=== PATIENT | female | born 1990 | race Caucasian/White ===

== ENCOUNTER 2021-12-28 22:08 | Emergency (ER) | payer BC, SELFPAY ==
[2021-12-28 22:13] VITALS: BP 98/53; PULSE 82; RESP 12; TEMP 36.3; O2SAT 90; BMI 21.9
[2021-12-28] MEDS: CYCLOBENZAPRINE HCL 10 MG TABLET PO (22:47)
[2021-12-28] MEDS: KETOROLAC 15 MG/ML inj IVP (22:47)
--- OUTSIDE RECORDS SUMMARY | 2021-12-28 23:24 | XMS_ITS | Encounter Summary ---
:1990 Author Organization [facility] Address [address] [place] [address] Care Team Providers Name Role Phone Ana Red P.A.-C. Primary Care Provider Reason for Visit Reason Comments Phone Contact Appointment LABS Encounter Details Date Type Department Care Team Description 12/11/2021 Clinical Ramirez Barajas, Phone Contact; Communication Center for [facility] (Jagdeep HERRON) Transplantation and Lilian, Ph.D. Clinical [facility] [address] in [facility] [address] [facility] [phone] Social History Tobacco Use Types Packs/Day Years Used Date Smoking Tobacco: Former Cigarettes 0.3 11 01/31 - 10/20/2021 Smokeless Tobacco: Never Comments: 2-3 cpd since July 27, 2021 Alcohol Use Standard Drinks/Week Comments Not Currently 0 (1 standard drink = 0.6 oz pure Havent had any alcohol in about a alcohol) year or so. Alcohol Habits Answer Date Recorded How often do you have a drink Never 07/17/2021 containing alcohol? How many drinks containing alcohol do Not asked you have on a typical day when you are drinking? How often do you have six or more Not asked drinks on one occasion? Comment: Havent had any alcohol in about a 2021 year or so. Social Isolation Answer Date Recorded In a typical week, how many times do you More than three melony es a week 07/17/2021 talk on the phone with family, friends, or neighbors? How often do you get together with friends Twice a week 07/17/2021 or relatives? How often do you attend anglican or Never 2021 yazidism services? Do you belong to any clubs or No 07/17/2021 organizations such as anglican groups, unions, fraternal or athletic groups, or school groups? How often do you attend meetings of the Patient refused 07/17/2021 clubs or organizations you belong to? Are you now , , , Living with partner 07/17/2021 , never or living with a partner? Physical Activity Answer Date Recorded On average, how many days per week do you engage in 0 days 07/17/2021 moderate to strenuous exercise (like walking fast, running, jogging, dancing, swimming, biking, or other activities that cause a light or heavy sweat)? On average, how many minutes do you engage in exercise Patie nt refused 07/17/2021 at this level? Stress Answer Date Recorded Do you feel stress - tense, restless, nervous, or Only a lit tle 07/17/2021 anxious, or unable to sleep at night because your mind is troubled all the time - these days? Financial Resource Strain Answer Date Recorded How hard is it for you to pay for the very basics like food, Very hard 07/17/2021 housing, medical care, and heating? Intimate Partner Violence Answer Date Recorded Within the last year, have you been afraid of your partner o r No 07/17/2021 ex-partner? Within the last year, have you been humiliated or emotionall y No 07/17/2021 abused in other ways by your partner or ex-partner? Within the last year, have you been kicked, hit, slapped, or No 07/17/2021 otherwise physically hurt by your partner or ex-partner? Within the last year, have you been raped or forced to have any No 07/17/2021 kind of sexual activity by your partner or ex-partner? Food Insecurity Answer Date Recorded Within the past 12 months, you worried that your food would Never true 07/17/2021 run out before you got money to buy more. Within the past 12 months, the food you bought just didn't N ever true 07/17/2021 last and you didn't have money to get more. Transportation Needs Answer Date Recorded In the past 12 months, has lack of transportation kept you f rom Yes 07/17/2021 medical appointments or from getting medications? In the past 12 months, has lack of transportation kept you f rom Yes 07/17/2021 meetings, work, or getting things needed for daily living? Housing Stability Answer Date Recorded In the last 12 months, was there a time when you were not ab le No 07/17/2021 to pay the mortgage or rent on time? In the last 12 months, how many places have you lived? 1 07/17/2021 In the last 12 months, was there a time when you did not hav e a No 07/17/[address] sleep or slept in a senior care (including now)? Education Answer Date Recorded What is the highest level of school Associate degree: ruth barker, 07/16/2021 you have completed or the highest technical, or vocational p [facility] degree you have received? 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 There are two sets of labs and one was from 10/10. We have scheduled the sept ones. Just wondering if you would like some completed FRANCESCA or if it can wait till 01/12? Thank you in advance documented in this encounter Plan of Treatment Upcoming Encounters Date Type Specialty Care Team Description 01/07/2022 Office Visit Community Internal Medicine Ranjit Red P.A.-C. [address] [place] [phone] (Wo rk) 01/12/2022 Appointment Laboratory Medicine Matthew Jerome M.B.B.SSuma, MJules [address] [place] [phone] (Wo rk) 01/12/2022 Appointment Laboratory Medicine Adeline Frazier M.D., Ph.D. [address] [place] [phone] (Wo rk) 01/13/2022 Telemedicine Transplant Joel Tan L.I.C.S.W., M.S. W. [address] [place] [phone] (Wo rk) 01/13/2022 Telemedicine Transplant Matthew Jerome M.B.B.SSuma, M.D. [address] [place] [phone] (Wo rk) 01/13/2022 Telemedicine Transplant Adeline Frazier M.D., Ph.D. [address] [place] [phone] (Wo rk) 01/28/2022 Office Visit Gastroenterology and Matthew Jerome, Hepatology FredySSuma, M.Slick. [address] [place] [phone] (Wo rk) Scheduled Procedures Name Priority Associated Diagnoses Date/Time ESOPHAGOGASTRODUODENOSCOPY Cirrhosis Alc oholic (HCC) Hypertension Portal (HCC) ESOPHAGOGASTRODUODENOSCOPY Cirrhosis Alc oholic (HCC) Ascites Anemia Macrocytic Thrombocytopenia (HC C) Deficiency Coagulation Acquired (HCC) documented as of this encounter Visit Diagnoses Not on filedocumented in this encounter Additional Health Concerns Assessment Noted Time PHQ-9 Depression Total Score: 10 10/06/2021 5:00 PM CD T documented as of this encounter Care Teams Mail List Processor Relationship Specialty Start Date End Date Ana Red P.A.-C. PCP - General Internal Medicine 12/01/[address] [place] [phone] [facility] [place] [facility] 08/25/21 Ervin Schroeder MD Referring Provider Family Medicine 03/24/[address] [place] [phone] documented as of this encounter
--- OUTSIDE RECORDS SUMMARY | 2021-12-28 23:24 | XMS_ITS | Encounter Summary ---
:1990 Author Organization [facility] Address [address] [place] [address] Care Team Providers Name Role Phone Ana Red P.A.-C. Primary Care Provider [phone] Reason for Visit Reason Comments Back Pain Encounter Details Date Type Department Care Team Description 12/19/2021 Nurse Triage Department of [facility] Ben Sun , Back Pain Internal Medicine in [place], [place] [address] [facility] [address] [place], [place] [phone] Social History Tobacco Use Types Packs/Day Years [...] or relatives? How often do you attend yarsani or Never 2021 orthodoxy services? Do you belong to any clubs or No 07/17/2021 organizations such as yarsani groups, unions, fraternal or athletic groups, or [...] place to sleep or slept in a mcfp (including now)? Education Answer Date Recorded What is the highest level of school Associate degree: ruth barker, 07/16/2021 you have completed or the highest technical, or vocational p rolf degree you have received? 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 - 12/19/2021 9:54 PM CDT Chief Complaint / Reason for Call Patient is a 31 y.o. female calling regarding Back Pain. Assessment Concern: Christelle calls in today with complaints of severe lower right sided back spasms that started 5 hours ago. Patient denies any urinary pain or frequency and is requesting medical advice. Present for: 5 hours Home cares tried: lidocaine patches, heat, The recommended disposition is See a health care provider within 4 hours. Reason for Disposition [1] SEVERE back pain (e.g., excruciating, unable to do any normal activities) AND [2] not improved 2 hours after pain medicine Protocols used: Back Xeql-KABVO-GT Care Advice Patient/Caregiver understands and will follow care advice?: Yes, able to teach back SEE HCP (OR PCP TRIAGE) WITHIN 4 HOURS: * IF OFFICE WILL BE OPEN: You need to be seen within the next 3 or 4 hours. Call your doctor (or BILINGUAL EXECUTIVE ASSISTANT/PA) now or as soon as the office opens. * IF OFFICE WILL BE CLOSED AND NO PCP (PRIMARY CARE PROVIDER) SECOND-LEVEL TRIAGE: You need to be seen within the next 3 or 4 hours. A nearby Urgent Care Center (UCC) is often a good source of care. Another choice is to go to the ED. Go sooner if you become worse. * IF OFFICE WILL BE CLOSED AND PCP SECOND-LEVEL TRIAGE REQUIRED: You may need to be seen. Your doctor (or BILINGUAL EXECUTIVE ASSISTANT/PA) will want to talk with you to decide what's best. I'll page the on-call provider now. Ifyou haven't heard from the provider (or me) within 30 minutes, call again. NOTE: If on-call providercan't be reached, send to UCC or ED. NOTE TO TRIAGER: * Use nurse judgment to select the most appropriate source of care. * Consider both the urgency of the patient's symptoms AND what resources may be needed to evaluate and manage the patient. SOURCES OF CARE: * ED: Patients who may need surgery or hospital admission need to be sent to an ED. So do most patients with serious symptoms or complex medical problems. * UCC: Some UCCs can manage patients who are stable and have less serious symptoms (e.g., minor illnesses and injuries). The triager must know the UCC capabilities before sending a patient there. If unsure, call ahead. * OFFICE: If patient sounds stable and not seriously ill, consult PCP (or follow your office policy)to see if patient can be seen NOW in office. PAIN MEDICINES: * For pain relief, you can take either acetaminophen, ibuprofen, or naproxen. * They are ortl-ntr-esfvdls (OTC) pain drugs. You can buy them at the drugstore. * ACETAMINOPHEN - REGULAR STRENGTH TYLENOL: Take 650 mg (two 325 mg pills) by mouth every 4 to 6 hours as needed. Each Regular Strength Tylenol pill has 325 mg of acetaminophen. The most you should take each day is 3,250 mg (10 pills a day). * ACETAMINOPHEN - EXTRA STRENGTH TYLENOL: Take 1,000 mg (two 500 mg pills) every 8 hours as needed. Each Extra Strength Tylenol pill has 500 mg of acetaminophen. The most you should take each day is 3,000 mg (6 pills a day). * IBUPROFEN (E.G., MOTRIN, ADVIL): Take 400 mg (two 200 mg pills) by mouth every 6 hours. The most you should take each day is 1,200 mg (six 200 mg pills), unless your doctor has told you to take more. * NAPROXEN (E.G., ALEVE): Take 220 mg (one 220 mg pill) by mouth every 8 to 12 hours as needed. You may take 440 mg (two 220 mg pills) for your first dose. The most you should take each day is 660 mg (three 220 mg pills a day), unless your doctor has told you to take more. CALL BACK IF: * You become worse CARE ADVICE given per Back Pain (Adult) guideline. documented in this encounter Plan of Treatment Upcoming Encounters Date Type Specialty Care Team Description 01/07/2022 Office Visit Community Internal Medicine Ranjit Red P.A.-C. [address] [place] [phone] ([facility]) 01/12/2022 Appointment Laboratory Medicine Matthew Jerome M.B.BSumaSSuma, M.D. [address] [place] [phone] ([facility]) 01/12/2022 Appointment Laboratory Medicine Adeline Frazier M.D., Ph.D. [address] [place] [phone] ([facility]) 01/13/2022 Telemedicine Transplant Joel Tan L.I.C.SAgnes., M.S. W. [address] [place] [address] [phone] (Wo rk) 01/13/2022 Telemedicine Transplant Matthew Jerome M.B.B.S., M.Slick. [address] [place] [phone] (Wo rk) 01/13/2022 Telemedicine Transplant Adeline Frazier M.D., Ph.D. [address] [place] [phone] (Wo rk) 01/28/2022 Office Visit Gastroenterology and Matthew Jerome, Hepatology Tyrell, Lilian [address] [place] [phone] (Wo rk) Scheduled Procedures Name Priority Associated [...] documented as of this encounter Care Teams Vulcanizer Relationship Specialty Start Date End Date Ana Red P.A.-C. PCP - General Internal Medicine 12/01/[address] [place] [phone] [facility] [place] [facility] 08/25/21 Ervin Schroeder MD Referring Provider Family Medicine 03/24/[address] [place] [address] [phone] documented as of this encounter
--- OUTSIDE RECORDS SUMMARY | 2021-12-28 23:24 | XMS_ITS | Encounter Summary ---
:1990 Author Organization [facility] Address [address] [place] [address] Care Team Providers Name Role Phone Ana Red PSumaASuma-CSuma Primary Care Provider Reason for Visit Reason Comments Disability Parking Certificate Encounter Details Date Type Department Care Team Description 12/11/2021 Clinical Communication Department of [facility] Internal Ana, Edmund feliz Medicine in P.A.-C. [place], 300 [facility] [place] 300 [facility] [address] [place] [phone] (Work) [phone] Social History Tobacco Use Types Packs/Day Years [...] or relatives? How often do you attend faith or Never 2021 amish services? Do you belong to any clubs or No 07/17/2021 organizations such as faith groups, unions, fraSocial Rewards or athletic groups, or school groups? How [...] place to sleep or slept in a detention (including now)? Education Answer Date Recorded What is the highest level of school Associate degree: ruth barker, 07/16/2021 you have completed or the highest technical, or vocational p [facility] degree you have received? 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 - 12/11/2021 9:16 AM CDT Disability Parking Certificate form request received. Please mail to patient after provider has signed. documented in this encounter Plan of Treatment Upcoming Encounters Date Type Specialty Care Team Description 01/07/2022 Office Visit Community Internal Medicine Ranjit Red P.A.-C. [address] [place] [phone] (Wo rk) 01/12/2022 Appointment Laboratory Medicine Matthew Jerome M.B.BSumaSSuma, MJules [address] [place] [phone] (Wo rk) 01/12/2022 Appointment Laboratory Medicine Adeline Frazier M.D., Ph.D. [address] [place] [phone] (Wo rk) 01/13/2022 Telemedicine Transplant Joel Tan L.I.C.S.W., M.S. W. [address] [place] [phone] (Wo rk) 01/13/2022 Telemedicine Transplant Matthew Jerome M.B.BSumaSSuma, MJules [address] [place] [phone] (Wo rk) 01/13/2022 Telemedicine Transplant Adeline Frazier M.D., Ph.D. [address] [place] [phone] (Wo rk) 01/28/2022 Office Visit Gastroenterology and Matthew Jerome, Hepatology JoshuaBSumaB.SSuma, MJules [address] [place] [phone] (Wo rk) Scheduled Procedures Name Priority Associated [...] documented as of this encounter Care Teams Psychologist Counseling Relationship Specialty Start Date End Date Ana Red P.A.-C. PCP - General Internal Medicine 12/01/[address] [place] [phone] [facility] [place] lab 08/25/21 Ervin Schroeder MD Referring Provider Family Medicine 03/24/[address] [place] [phone] documented as of this encounter
--- OUTSIDE RECORDS SUMMARY | 2021-12-28 23:24 | XMS_ITS | Encounter Summary ---
:1990 Author Organization [facility] Address [address] [place] [address] Care Team Providers Name Role Phone Ana Red P.A.-C. Primary Care Provider Encounter Details Date Type Department Care Team Description 12/18/2021 Orders Only Department of Mousa, Matthew Y, Mood Disorde r (HCC) (Primary Dx); Gastroenterology in [place]ua [place]. Anxiety Disorder Unspecified [address] [phone] Social History Tobacco Use Types Packs/Day Years [...] many times do you More than three mleony es a week 07/17/2021 talk on the phone with family, friends, or neighbors? How often do you get together with friends Twice a week 07/17/2021 or relatives? How often do you attend temple or Never 2021 mormonism services? Do you belong to any clubs or No 07/17/2021 organizations such as temple groups, unions, fraternal or athletic groups, or [...] place to sleep or slept in a halfway (including now)? Education Answer Date Recorded What is the highest level of school Associate degree: ruth barker, 07/16/2021 you have completed or the highest technical, or vocational p [facility] degree you have received? 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 300 [facility] [place] [phone] (Gwendolyn rahman) 01/12/2022 Appointment Laboratory Medicine Matthew Jerome M.B.B.S., M.D. [address] [place] [phone] (Gwendolyn rahman) 01/12/2022 Appointment Laboratory Medicine Adeline Frazier M.D., Ph.D. [address] [place] [phone] (Wo rk) 01/13/2022 Telemedicine Transplant Joel Tan L.I.C.S.W., M.S. W. [address] [place] [address] [phone] (Wo rk) 01/13/2022 Telemedicine Transplant Matthew Jerome M.B.B.S., MCee. [address] [place] [phone] (Wo rk) 01/13/2022 Telemedicine Transplant Adeline Frazier M.D., Ph.D. [address] [place] [address] [phone] (Wo rk) 01/28/2022 Office Visit Gastroenterology and Matthew Jerome, Hepatology JoshuaBSumaBGraeme, MJules [address] [place] [phone] (Wo rk) Scheduled Procedures Name Priority Associated Diagnoses Date/Time ESOPHAGOGASTRODUODENOSCOPY Cirrhosis Alc oholic (HCC) Hypertension Portal (HCC) ESOPHAGOGASTRODUODENOSCOPY Cirrhosis Alc oholic (HCC) Ascites Anemia Macrocytic Thrombocytopenia (HC C) Deficiency Coagulation Acquired (HCC) documented as of this encounter Visit Diagnoses Diagnosis Mood Disorder (HCC) - Primary Anxiety Disorder Unspecified documented in this encounter Additional Health Concerns Assessment Noted Time PHQ-9 Depression Total Score: 10 10/06/2021 5:00 PM CD T documented as of this encounter Care Teams Bleacher Sulfite Pulp Relationship Specialty Start Date End Date Ana Red P.A.-C. PCP - General Internal Medicine 12/01/[address] [place] [address] [place] [phone] [facility]- [place] lab 08/25/21 Ervin Schroeder MD Referring Provider Family Medicine 03/24/[address] [place] [address] documented as of this encounter
--- OUTSIDE RECORDS SUMMARY | 2021-12-28 23:24 | XMS_ITS | Encounter Summary ---
:1990 Author Organization [facility] Address [address] [place] [address] Care Team Providers Name Role Phone Ana Red P.A.-C. Primary Care Provider [phone] Encounter Details Date Type Department Care Team Description 12/12/2021 Documentation Ramirez Landon [place], Mi meena [place] for Transplantation and L.Kirit.Katrin.S. Hazel, M.S.W. Clinical Regeneration in [address] [place] [address] [address] [place] [address] [place], [place] [phone] Social History Tobacco Use Types Packs/Day Years [...] or relatives? How often do you attend lutheran or Never 2021 zoroastrian services? Do you belong to any clubs or No 07/17/2021 organizations such as lutheran groups, unions, fraVaunte or athletic groups, or school groups? How [...] place to sleep or slept in a snf (including now)? Education Answer Date Recorded What is the highest level of school Associate degree: ruth barker, 07/16/2021 you have completed or the highest technical, or vocational p [facility] degree you have received? 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 - 12/12/2021 9:11 AM CDT The patient contacted me with information on additional caregiver support to her for the post-transplant recovery period. This would include her boyfriend, Lobito Brunson, and her brother, Ricardo Carias. She has given me permission to call them in order to vet them as caregivers. I have spoken with both of them this morning and their caregiver information is below, along with the patient's mother's information, who was previously vetted as a caregiver. Name: Parris Knight Age: 52 Relationship to patient: mother Can they read: yes Can they write: yes Can they drive: yes Do they have a reliable vehicle: yes Does the caregiver have other responsibilities: Yes, she works full-time. She stated she also has a 14 year old son and will babysit for her grandson 2-4 times per week. Health of the caregiver: good Amount of time able to assist as a caregiver: The patient's mother stated she would be able to assist a total of 2 weeks, with the time being staggered and not consistent. Vetted: Yes, in person - 09/30/2021. Name: Lobito Brunson Age: 32 Relationship to patient: boyfriend Can they read: yes Can they write: yes Can they drive: yes Do they have a reliable vehicle: yes Does the caregiver have other responsibilities: Yes, he works in a metal factory as a industrial spray painter. He stated he has spoken with his boss and is able to take time off work to assist as a caregiver. Health of the caregiver: good Amount of time able to assist as a caregiver: The patient's boyfriend stated he would be available during the full recovery period if needed. Vetted: Yes, via telephone - 12/12/2021 Name: Ricardo Carias Age: 29 Relationship to patient: brother Can they read: yes Can they write: yes Can they drive: yes Do they have a reliable vehicle: yes Does the caregiver have other responsibilities: Yes, he works in construction. He reports ability totake time off from work and stated he has spoken with his boss about this. Health of the caregiver: good Amount of time able to assist as a caregiver: The patient's brother stated he would be available during the full recovery period if needed. Vetted: Yes, via telephone - 12/12/2021 The patient appears to have good caregiver support. I have notified Dr. Jerome that her caregiver plan has been solidified. The patient's PACT score remains 1 until she has completed the recommendations from Transplant Psychiatry. She met with Dr. Radhames Neumann with Transplant Pain Psychiatry on 10/06/2021 who recommended the following: I recommend that she participate in the virtual Complex Persistent Pain Program (CPPP), a 4-hour group-based psychoeducation course that addresses central sensitivity, neuroplasticity, and evidence-based behavioral strategies to enhance functioning. She was seen by Dr. Frazier with Transplant Addictions Psychiatry on 10/10/2021 who made the following recommendations: COMPLETE THE FULL TRANSPLANT CENTER PROTOCOL (OUTPATIENT) includin. Complete abstinence from alcohol, tobacco, cannabis, prescription opiates, Sedatives/ benzodiazepines, and all substances of abuse. 2. Outpatient level dual-diagnosis addiction treatment to develop relapse prevention skills. 3. Engagement in AA meetings (or other approved recovery meetings), at minimum once weekly. 4. Obtain and utilize a recovery sponsor. 5. Follow plan of care for chronic pain management per Radhames Neumann, Ph.D., L.P. in [place] Trans[facility] Psychiatry (Pain Rehabilitation), 10/06/2021: - virtual Complex Persistent Pain Program (CPPP), a 4-hour group-based psychoeducation course that addresses central sensitivity, neuroplasticity, and evidence-based behavioral strategies to enhance functioning; - opioid taper and discontinuation under care of her local prescribing provider. 6. Follow plan of care per Transplant Psychiatry (Mood), pending appointment on 10/22/2021. 7. Urine drug, ethyl glucuronide, and phosphatidyl ethanol screens at each visit with Transplant Addiction Psychiatry. 8. Follow up in 3 months with Transplant Addiction Counselor (LADC).The LADC will determine and order follow up with Transplant Addiction Psychiatrist based on the patient's progress. She met with Dr. Keen with Transplant Mood Psychiatry on 10/22/2021 who indicated the following: She has not discontinue opiate and THC use and I will speak with Dr. Frazier to have her team follow up with the patient about these recommendations. At this point, I believe that this would be thepriority followed by further assessment and treatment of eating disorders. She currently denies restricting or purging behaviors and in the future could be referred to the [facility] for further assessment and treatment. 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 documented in this encounter Plan of Treatment Upcoming Encounters Date Type Specialty Care Team Description 01/07/2022 Office Visit Community Internal Medicine Ranjit Red P.A.-C. [address] [place] [address] [place] [phone] (Wo rk) 01/12/2022 Appointment Laboratory Medicine Matthew Jerome M.B.B.SSuma, MJuels [address] [place] [phone] (Wo rk) 01/12/2022 Appointment Laboratory Medicine Adeline Frazier M.D., Ph.D. [address] [place] [phone] (Wo rk) 01/13/2022 Telemedicine Transplant Joel Tan L.I.C.S.W., M.S. W. [address] [place] [phone] (Wo rk) 01/13/2022 Telemedicine Transplant Matthew Jerome M.B.B.SSuma, M.D. [address] [place] [phone] (Wo rk) 01/13/2022 Telemedicine Transplant Adeline Frazier M.D., Ph.D. [address] [place] [phone] (Wo rk) 01/28/2022 Office Visit Gastroenterology and Matthew Jerome, Hepatology FredySSuma, M.Slick. [address] [place] [phone] (Wo rk) Scheduled Procedures Name Priority Associated [...] documented as of this encounter Care Teams Supervisor Harvesting Relationship Specialty Start Date End Date Ana Red P.A.-C. PCP - General Internal Medicine 12/01/[address] [place] [phone] [facility] 08/25/21 Ervin Schroeder MD Referring Provider Family Medicine 03/24/[address] [place] [phone] documented as of this encounter
--- OUTSIDE RECORDS SUMMARY | 2021-12-28 23:24 | XMS_ITS | Clinical Summary ---
:1990 Author Organization [facility] Address [address] [place] [address] Care Team Providers Name Role Phone Ana Red P.A.-C. Primary Care Provider [phone] Source Comments Patient records contain information from all sites at [facility]. For routine questions regarding patient records, call [phone] during business hours, M-F 8:00 AM - 5:00 PM Central Time. Record requests for emergency care only can be directed to [phone] at any time.[facility] Allergies Active Allergy Reactions Severity Noted Date Comments Azithromycin GI intolerance, Nausea Low 05/07/2016 And Vomiting Other reaction( s): Nausea/Vomiting Other reaction( s): Other (see comments) Unknown Other reaction( s): Unknown Other reaction( s): GI intolerance Ciprofloxacin Other (see comments) High 11/26/2021 Enceph alopathy Gabapentin Other (see comments) High 11/26/2021 Encepha lopathy Medications Medication Sig Dispensed Refills Start End Status Date Date pantoprazole Take 1 tablet 30 tablet 1 03/24/20 Act gerri (PROTONIX) 40 mg EC (40 mg total) by 21 tablet mouth every morning before breakfast. ondansetron ODT Take 1 tablet by 0 04/23/20 Active (ZOFRAN-ODT) 8 mg mouth 3 (three) 21 disintegrating times a day as tablet needed. ergocalciferol Take 50,000 0 04/01/20 Act gerri (DRISDOL) 50,000 Units by mouth 21 Unit capsule once a week. levonorgestreL 1 each by 0 Activ e (MIRENA) 20 mcg/24 intrauterine hours (7 yrs) 52 mg route IUD continuously. folic acid 1 mg Take 1 mg by 0 A ctive tablet mouth daily. thiamine (VITAMIN Take 100 mg by 0 Active B1) 100 mg tablet mouth daily. vitamin A 3,000 mcg Take 1 capsule 50 capsule 0 10/09/1905/04 Active (10,000 Unit) (3,000 mcg 22 022 capsuleIndications: total) by mouth Cirrhosis Alcoholic 3 (three) times (HCC), Deficiency a week for 50 Vitamin A doses. diclofenac sodium Apply 2 g 20 g 0 11/27/19 Ac tive (VOLTAREN) 1 % gel topically 4 22 (four) times a day. Apply to painful area on skin. magnesium oxide Take 1 tablet 60 tablet 1 12/03/19 Active (MAG-OX) 400 mg (400 mg total) 22 (241.3 mg magnesium) by mouth 2 (two) tablet times a day before breakfast and dinner. zinc sulfate Take 1 capsule 28 capsule 0 12/03/19 A ctive (ZINCATE) 220 (50 mg (220 mg total) 22 022 zinc) capsule by mouth daily with breakfast for 28 days. traZODone (DESYREL) Take 1 tablet 10 tablet 0 12/05/19 Active 50 mg tablet (50 mg total) by 22 mouth at bedtime as needed for sleep for up to 10 doses. rifAXIMin (XIFAXAN) Take 1 tablet 180 tablet 3 12/11/1912/10 Active 550 mg (550 mg total) 22 023 tabletIndications: by mouth 2 (two) Cirrhosis Alcoholic times a day. (HCC), Hypertension Portal (HCC), Thrombocytopenia (HCC), Abnormal Liver Function Test, Hepatic Encephalopathy Without Coma (HCC) spironolactone Take 2 tablets 180 tablet 3 12/11/19 Active (ALDACTONE) 50 mg (100 mg total) 22 023 tabletIndications: by mouth daily. Cirrhosis Alcoholic (HCC), Hypertension Portal (HCC), Thrombocytopenia (HCC), Abnormal Liver Function Test, Ascites Chronic furosemide (LASIX) Take 2 tablets 180 tablet 3 12/11/1912/10 Active 20 mg (40 mg total) by 22 023 tabletIndications: mouth daily. Cirrhosis Alcoholic (HCC), Hypertension Portal (HCC), Thrombocytopenia (HCC), Abnormal Liver Function Test, Ascites Chronic lactulose Take 15 mL (10 g 1350 mL 11 12/11/19 Act gerri (CHRONULAC) 10 total) by mouth 22 023 gram/15 mL 3 (three) times solutionIndications: a day. Titrate Cirrhosis Alcoholic to 3 soft bowel (HCC), Hypertension movements daily Portal (HCC), Thrombocytopenia (HCC), Abnormal Liver Function Test, Hepatic Encephalopathy Without Coma (HCC) sulfamethoxazole-tri Take 1 tablet by 90 tablet 3 12/11/19 Active methoprim (BACTRIM mouth daily. 023 DS) 800-160 mg per Take 1 tablet tabletIndications: daily for Cirrhosis Alcoholic (HCC), Hypertension Portal (HCC), Thrombocytopenia (HCC), Abnormal Liver Function Test, Ascites Chronic LORazepam (ATIVAN) 1 Take 1 tablet (1 1 tablet 0 12/19/19 Active mg mg total) by 22 tabletIndications: mouth once for 1 Mood Disorder (HCC), dose. Take 30 Anxiety Disorder minutes before Unspecified your scheduled paracentesis magnesium oxide Take 1 tablet 60 tablet 1 03/24/20 Discontinued (MAG-OX) 400 mg (400 mg total) 022 (Reorder) (241.3 mg magnesium) by mouth 2 (two) tablet times a day before breakfast and dinner. furosemide (LASIX) Take 2 tablets 30 tablet 1 08/04/19 Discontinued 20 mg tablet (40 mg total) by 022 (Reorder) mouth daily. spironolactone Take 2 tablets 30 tablet 1 08/04/19 Discontinued (ALDACTONE) 50 mg (100 mg total) 022 (Reorder) tablet by mouth daily. lactulose Take 15 mL (10 g 0 11/12/19 Dis continued (CHRONULAC) 10 total) by mouth 22 022 (Reorder) gram/15 mL solution 3 (three) times a day. Titrate to 3 soft bowel movements daily zinc sulfate Take 1 capsule 28 capsule 0 11/12/19 D iscontinued (ZINCATE) 220 (50 mg (220 mg total) 22 022 (Reorder) zinc) capsule by mouth daily with breakfast for 28 days. rifAXIMin (XIFAXAN) Take 550 mg by 0 12/10 Discontinued 550 mg tablet mouth 2 (two) 022 (R eorder) times a day. lidocaine (LIDODERM) Place 1 patch on 14 patch 0 11/27/19 5 % the skin at 22 022 bedtime for 14 days. Apply to leg. sulfamethoxazole-tri Take 1 tablet by 30 tablet 0 11/27/19 Discontinued methoprim (BACTRIM mouth daily. 22 022 (Reorder) DS) 800-160 mg per Take 1 tablet tablet daily for traZODone (DESYREL) Take 1 tablet 10 tablet 0 12/05/19 Discontinued 50 mg tablet (50 mg total) by 22 022 (Reorder) mouth at bedtime as needed for sleep for up to 10 doses. traZODone (DESYREL) Take 1 tablet 10 tablet 0 12/05/19 Discontinued 50 mg tablet (50 mg total) by 22 022 (Reorder) mouth at bedtime as needed for sleep for up to 10 doses. Active Problems Problem Noted Date COVID-19 Infection 11/11/2021 Penitentiary Use Of Opiate Analgesic 10/10/2021 Nicotine Dependence Cigarettes 10/10/2021 Chronic Pain Syndrome 10/10/2021 Mood Disorder 10/10/2021 Eating Disorder 10/10/2021 Deficiency Vitamin A 10/08/2021 Hypertension Portal 09/05/2021 Overview: Added automatically from request for dolly daley [id number] Pretransplant Recipient Evaluation Exam 09/05/2021 Overview: Added automatically from request for dolly daley [id number] Vomiting 07/26/2021 Deficiency Coagulation Acquired 07/07/2021 Overview: Added automatically from request for dolly daley [id number] Thrombocytopenia 07/01/2021 Patent Foramen Ovale 03/19/2021 Cirrhosis Alcoholic 03/12/2021 Acute Respiratory Failure 03/12/2021 Anemia 03/12/2021 Long QT Syndrome 01/30/2021 Hepatic Failure Unspecified Without Coma 01/24/2021 Abnormal Liver Function Test 01/23/2021 Ascites 01/23/2021 Pancreatitis Chronic 01/23/2021 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/30 Gastroesophageal Reflux Disease Without Esophagitis Anxiety Disorder Unspecified 01/19/2012 Other Specified Behavioral And Emotional Disorders Wit h Onset Usually 06/30/2007 Occurring In Childhood And Adolescence Rhinitis Allergic 04/06/2006 Alcohol Use Unspecified With Unspecified Alcohol Induc ed Disorder Resolved Problems Problem Noted Date Resolved Date Delirium 11/26/2021 11/26/2021 Encephalopathy 11/12/2021 11/26/2021 Failure Renal Acute (Acute Kidney Injury) 11/11/2021 11/11/2021 Hepatic Encephalopathy Without Coma 10/10/2021 07/2 10/2021 Change Mental Status 03/12/2021 11/26/2021 Encounters Date Type Specialty Care Team Description 12/27/2021 Patient Self-Triage Symptom Charge Weigher, Provider 12/25/2021 Clinical Community Internal [facility], Communication Medicine Vernell Perez 12/21/2021 Emergency Emergency Medicine Gonzalez, Ascites ( Primary Dx) Ted Johnson M.D., Ph.D. Clifton Liu M.D. 12/19/2021 Emergency Emergency Medicine Gonzalez, Pain Back (Primary - Ted Johnson M.D., Dx) 12/20/2021 Ph.D. Migue Garcia Jr., M.D. 12/19/2021 Nurse Triage Community Internal [facility], Back Pain Medicine Ben Johnson R.N. 12/18/2021 Orders Only Gastroenterology and Mousa, Matthew Y, Mood Disorder (HCC) (Primary Dx); Hepatology Lilian Santillan Anxiety Disor ijeoma Unspecified 12/15/2021 Lab Laboratory Medicine Loukianova, Alcohol Moderate Or Severe Use Disorder (Dependence) Uncomplicated (HCC); Adeline Gannon, Cannabis Use Un specified Uncomplicated M.Jeri, Ph.D. 12/12/2021 Documentation Transplant Lambert, Joel Gannon, Jagdeep.I.C.S.W., M.S.W. 12/11/2021 Clinical Transplant Fabrizio, Phone Contact; Communication Lilian Rowland, Appointment (LABS) Ph.D. 12/11/2021 Clinical Gastroenterology and Felicita Spicer Communication Hepatology Patrica, LSumaPSumaN. 12/11/2021 Clinical [facility] Internal Neda Disabilit y Parking Communication Medicine Ana, Ashleigh P.A.-C. 12/10/2021 Office Visit Gastroenterology and Matthew Jerome, Cirrh osis Alcoholic (HCC) (Primary Dx); Hepatology JoshuaBLilian Staples Hypertension Portal (HCC); Thrombocytopeni a (HCC); Abnormal Liver Function Test; Deficiency Katy min A; Ascites Chronic ; Hepatic Encepha lopathy Without Coma (HCC) 12/04/2021 [facility] ( Primary Dx); Neeru Palma M.D. 12/04/2021 Clinical Gastroenterology and Jethro Communication Hepatdina Schaefer M.D. 12/04/2021 Clinical Gastroenterology and Jethro Communication Hepatdina Schaefer M.D. 12/04/2021 Clinical Gastroenterology and Ashley Morelos M.D. 12/04/2021 Documentation Gastroenterology and Elaine Morelos M.D. 12/04/2021 Clinical Gastroenterology and Ashley Morelos Hepatdina Schaefer M.D. 12/03/2021 Clinical [facility] Internal Sykora, BIANKA / Disha eal Letter Communication Medicine Lilian Gee, M.S. 12/03/2021 Orders Only Ana Red, P.A.-C. 12/02/2021 Hospital Encounter Laboratory Medicine Luischantell Matthew Y, Cirrhosis Alcoholic (HCC); M.B.B.Lilian Stockton Hypertension Portal (HCC); Thrombocytopeni a (HCC); Abnormal Liver Function Test; Change Mental S tatus 12/02/2021 Office Visit [facility] Acute A nd Subacute Hepatic Failure Without Coma (HCC) (Primary Dx); Medicine Sunny hanley D.O. Pancreatitis Chronic (HCC); Fish Header Use O f Opiate Analgesic; Alcohol Use Uns pecified With Unspecified Alcohol Induced Disorder (HCC); Alcoholic Cirrh osis Of Liver Without Ascites (HCC); Ascites Chronic ; Insomnia; High Risk Medic ation 12/02/2021 [facility] Internal Sina, Communication Medicine Lilian Gee, M.S. 12/02/2021 Clinical Pharmacy Be, Communication Jasmyne R 12/02/2021 [facility] Internal [facility] Communication Medicine Sunny hanley D.O. 12/02/2021 Orders Only Ana Red P.A.-C. 12/02/2021 [facility] Internal [place], Post Hosp ital Communication Medicine Ciara Johnson RSumaNSuma Follow-up 11/27/2021 Orders Only [facility] Internal [facility], Solitario Gee M.D., M.S. 11/26/2021 Clinical [facility] Internal Shannan Rand Communication Medicine Lilian 11/26/2021 Clinical Gastroenterology and Matthew Jerome Communication Hepatology M.B.B.S., M.D. 11/26/2021 [facility] Orders Schroeder, Steatohepat itis Non Alcoholic (Primary Dx); Ervin Schaefer M.D. Unspecified Ci rrhosis Of Liver (HCC) 11/18/2021 Clinical Alina Carranza Communication R, R.N. 11/14/2021 [facility] Orders Schroeder, Abuse Tobac co Smoking (Primary Dx); Ervin Schaefer M.D. Unspecified Ci rrhosis Of Liver (HCC) 11/12/2021 Hospital Encounter [place], Rosaura Hernandez loady (Primary Dx); Ester Johnson M.D., Change Mental S tatus; 11/26/2021 M.P.[facility]. Malaise (Concern For Covid-19); Greyson, Cirrhosis Alcoh olic (HCC) Jo Ann Gannon M.D., M.S. Jody Aguilar, M.B., B.Chir. 11/12/2021 Clinical Gastroenterology and Mousa, Matthew Y, Covid Positive Communication Hepatology Lilian Santillan 11/10/2021 Episode Changes Transplant Ailts, Chano Engle, R.N., C.C.T.C. 11/09/2021 Hospital Encounter Greyson, Hepatic - Jo Ann L, Encephalopathy 11/11/2021 MJules, M.SSuma Without Coma (HCC) Jody Aguilar (Primary Dx) Vik Lucas B.Chir. 11/04/2021 Clinical Gastroenterology and Symone Beebe Communication Hepatology L, R.N. 10/31/2021 Clinical Dillon Alina Vitamin K Communication R, R.N. 10/31/2021 Orders Only Gastroenterology and Mousa, Matthew Y, Cirrh osis Alcoholic (HCC) (Primary Dx); Hepatology Lilian Santillan Defect Coagul ation (HCC) 10/29/2021 Orders Only Social Work Joel Tan, WoodrowC.S.WSuma, M.S.W. 10/28/2021 Clinical Transplant Transplant, External Lab En try Bindery Assistant, (10/25/2021/) R.N. 10/27/2021 Telemedicine Nicotine Dependence Galo Crain ne Dependence Jessy Gannon, Cigarettes (Monica correa M.A., C.T.T.S. Dx) 10/22/2021 Telemedicine Transplant Edgar, Moderate Or Sev ere Use Disorder (Dependence) Alcohol Remission (HCC) (Primary Dx); Warren Schaefer, Bulimia Nervosa (HCC); MJules, M.P.H. Anorexia Nervosa Restricting Type (HCC); Natalia Anxiety Gener alized Disorder; e, Brigid G, Cirrhosis Alcoh olic (HCC); M.D. Ascites; Abnormal Liver Function Test; Pretransplant R ecipient Evaluation Exam; Preoperative Ex am 10/20/2021 Clinical Transplant Dominick, Follow up on Communication Joel Gannon, caregiver plan MarvaISumaC.S.W., M.S.W. 10/17/2021 Nurse Triage Family Medicine PosKin tanner, RSumaN. 10/17/2021 Clinical Transplant Dominick, Follow up on Communication Joel Gannon, caregiver plan Michelle., M.S.W. 10/15/2021 Documentation Gastroenterology and Mousa, Matthew Y, Hepatology Lilian Santillan 10/13/2021 Nurse Triage Family Medicine Dasonyaeddie, Medication Q uestion Jolynn L, R.N. 10/13/2021 Nurse Triage Family Medicine Nola Polanco M, R.N. 10/10/2021 Telemedicine Transplant Talnatalia, Alcohol Moderat e Or Severe Use Disorder (Dependence) Uncomplicated (HCC) (Primary Dx); Warren A, Cannabis Use Un specified Uncomplicated; M.Jeri, M.P.H. Penitentiary Use Of Opiate Analgesic; Zenobia Hollingsworth Nicotine Depen dence Cigarettes; L, M.A., Mood Disorder ( HCC); L.A.D.C. Anxiety Disorde r Unspecified; Eating Disorder ; Hepatic Encepha lopathy Without Coma (HCC); Chronic Pain Sy ndrome; Cirrhosis Alcoh olic (HCC); Pretransplant R ecipient Evaluation Exam 10/10/2021 Clinical Transplant Fabrizio, Appointment (TF C FA) Communication Lilian Rowland, Ph.D. 10/09/2021 Hospital Encounter Radiology Edgar, Cirrhosis Alcoholic (HCC); Warren A, Abnormal Liver Function Test; M.Jeri, M.P.H. Ascites; Pretransplant R ecipient Evaluation Exam; Preoperative Ex am 10/09/2021 Clinical Transplant Brigid Lima M.D. 10/08/2021 Office Visit Gastroenterology and Matthew Jerome Y, Cirrh osis Alcoholic (HCC) (Primary Dx); Hepatology Tyrell, Lilian Hypertension Portal (HCC); Thrombocytopeni a (HCC); Abnormal Liver Function Test; Deficiency Katy min A 10/08/2021 Clinical Gastroenterology and Oriana, Communication Hepatology Sofia Gannon, L.P.N. 10/07/2021 Hospital Encounter Pulmonary Medicine Edgar, Cir rhosis Alcoholic (HCC); Warren A, Abnormal Liver Function Test; Lilian, M.P.H. Ascites; Pretransplant R ecipient Evaluation Exam; Preoperative Ex am 10/06/2021 Comprehensive Visit Transplant Edgar, Pain Leg Bilateral (Primary Dx); Warren Schaefer, Cirrhosis Alcoh olic (HCC); Lilian, M.P.H. Abnormal Liver Function Test; Neumann, Ascites; Radhames Llanes, Pretransplant R ecipient Evaluation Exam; Ph.D., L.P. Preoperative Ex am 10/03/2021 Hospital Encounter Laboratory Medicine Edgar, Ci rrhosis Alcoholic (HCC); Warren Schaefer, Abnormal Liver Function Test; Lilian, M.P.H. Ascites; Pretransplant R ecipient Evaluation Exam; Preoperative Ex am 10/03/2021 Office Visit Transplant Clavell, Patent Foramen Ovale (HCC) (Primary Dx); Saul Gannon, Hypertension Po rtal (HCC); M.Slick. Cirrhosis Alcoholic (HCC); Geraldo, Pretransplant R ecipient Evaluation Exam Abelino Llanes M.D. 10/02/2021 Comprehensive Visit Transplant Vish, Cirrhosi s Alcoholic (HCC); Migue Llanes, Abnormal Liver Function Test; M.D. Ascites; Pretransplant R ecipient Evaluation Exam; Preoperative Ex am 10/02/2021 Comprehensive Visit Transplant Fabrizio, Cirrhosi s Alcoholic (HCC); Lilian Rowland, Abnormal Live r Function Test; Ph.D. Ascites; Pretransplant R ecipient Evaluation Exam; Preoperative Ex am 10/02/2021 Orders Only Transplant Bernardo Diggs Clinical Rese arch Exam (Primary D x) 10/01/2021 Comprehensive Visit Preventive Medicine Felicita Diggs Preventive (Primary Dx); K, POLE INSPECTOR, Cirrhosis Alcoh olic (HCC); C.N.P. Abnormal Liver Function Test; Ascites; Pretransplant R ecipient Evaluation Exam; Preoperative Ex am 10/01/2021 Clinical Support Nicotine Dependence Eddie Hernández Dependence Cigarettes (Primary Dx); Warren Schaefer, Cirrhosis Alcoh olic (HCC); Lilian, M.P.H. Abnormal Liver Function Test; Paras, Ascites; Jessy L, Pretransplant R ecipient Evaluation Exam; Lowell SolerT.T.SSuma Preoperative Exam 10/01/2021 Education Transplant Edgar, Cirrhosis Alcoh olic (HCC); Warren A, Abnormal Liver Function Test; M.D., M.P.H. Ascites; Laney French Pretransplant Recipient Evaluation Exam; Chano Johnson, Preoperative Ex am R.N., C.C.T.C. 10/01/2021 Orders Only Transplant Bernardo Diggs R 10/01/2021 Clinical Nicotine Dependence Paras, [facility] D REQUEST Communication Jessy Gannon M.A., C.T.T.S. 09/30/2021 Comprehensive Visit Transplant Edgar, Cirrhosi s Alcoholic (HCC); Warren A, Abnormal Liver Function Test; M.D., M.P.H. Ascites; Ramon, Pretransplant R ecipient Evaluation Exam; Milagros Schaefer, Preoperative Ex am M.Kath, RDN, LD 09/30/2021 Clinical Support Transplant Edgar, Cirrhosis A lcoholic (HCC); Warren A, Abnormal Liver Function Test; M.D., M.P.H. Ascites; Dominick, Pretransplant R ecipient Evaluation Exam; Joel Gannon, Preoperative Ex am L.I.C.S.W., M.S.W. 09/30/2021 Office Visit Pharmacy Edgar, Cirrhosis Alcoh olic (HCC); Warren A, Abnormal Liver Function Test; M.D., M.P.H. Ascites; Evon Joseph Pretransplant R ecipient Evaluation Exam; Karan, Pharm.D., Preoperative Ex am R.Ph. 09/30/2021 Lab Laboratory Medicine Edgar, Cirrhosi s Alcoholic (HCC); Warren A, Abnormal Liver Function Test; M.D., M.P.H. Ascites; Pretransplant R ecipient Evaluation Exam; Preoperative Ex am 09/28/2021 Nurse Triage Family Medicine Ines Walters Leg Pain R, R.N. from Last 3 Months Immunizations Name Administration Dates Next Due DTP 03/14/1992, 02/23/1991, 1990, 1990 DTaP (Infanrix, Tripedia) 05/26/1995 HepB Pediatric/Adolescent 12/28/2000, 12/17/1997, 04/30/1997 Hib (PRP-OMP) (PedvaxHIB) 02/08/1992, 06/01/1991, 03/08/1991 Hib, Unspecified 02/08/1992, 06/01/1991, 03/08/1991 Influenza TIV (IM) 02/26/2009, 03/26/2008, 03/21/2007, 03/21/2003, 03/03/2003 Influenza, Seasonal, Injectable 02/26/2009, 03/26/2008, 03/03, 03/21/2003 MMR 12/17/1997, 11/09/1991 OPV 05/26/1995, 03/14/1992, 02/23/1991, 1990, 1990 Polio, Unspecified 05/26/1995, 03/14/1992, 1990, 1990 Td (Adult), adsorbed 09/08/2002 Tdap 03/07/2014 influenza vaccine quad 03/07/2014 (FLUZONE/FLUARIX) (6 months and older)(PF) Family History Medical History Relation Name Comments ADD Brother 1 Curt Depression Brother 1 Curt Seizures Brother 1 Curt Suicide Attempts Brother 1 Curt ADD Brother 2 Ricardo Hyperlipidemia Father Roscoe Carias Arthritis Maternal Grandfather Bradley Mayon Asthma Maternal Grandfather Bradley Cespedes Hypertension Maternal Grandfather Bradley Coy Arthritis Maternal Grandmother Desirejoe Cespedes Asthma Maternal Grandmother Desirejoe Cespedes Migraines Maternal Grandmother Desire Cespedes Anxiety disorder Mother Parris Diabetes Paternal Grandfather Laureanorigo Carias Prostate cancer Paternal Grandfather Laureano Carias ADD Sister Christina Relation Name Status Comments Brother 1 Curt Brother 2 Ricardo Father Roscoe Carias Maternal Grandfather Bradley Cespedes Maternal Grandmother Desire Cespedes Mother Parris Paternal Grandfather Laureano Carias Sister Christina Social History Tobacco Use Types Packs/Day Years Used Date Smoking Tobacco: Former Cigarettes 0.3 11 01/31 - 10/20/2021 Passive Smoke Exposure: Never Smokeless Tobacco: Never Tobacco Cessation: Counseling Given: Not Answered Comments: 2-3 cpd since July 27, 2021 [...] or relatives? How often do you attend yazidism or Never 2021 nondenominational services? Do you belong to any clubs or No 07/17/2021 organizations such as yazidism groups, unions, fraternal or athletic groups, or [...] place to sleep or slept in a custodial (including now)? Education Answer Date Recorded What is the highest level of school Associate degree: ruth barker, 07/16/2021 you have completed or the highest technical, or vocational p jonnyram degree you have received? Sex Assigned at Date Recorded Female 04/12/2021 7:39 PM [employer] Last Filed Vital Signs Vital Sign Reading Time Taken Comments Blood Pressure 117/60 12/21/2021 8:55 AM CDT Pulse 93 12/21/2021 8:55 AM CDT Temperature 37 ??C (98.6 ??F) 12/21/2021 8:55 AM CDT Respiratory Rate 18 12/21/2021 8:55 AM CDT Oxygen Saturation 98% 12/21/2021 8:45 AM CDT Inhaled Oxygen Concentration - - Weight 57.4 kg (126 lb 8.7 oz) 12/21/2021 1:13 AM CDT Height 159 cm (5' 2.6) 12/10/2021 2:51 PM CDT Body Mass Index 22.71 12/10/2021 2:51 PM CDT Plan of Treatment Upcoming Encounters Date Type Specialty Care Team Description 01/07/2022 Office Visit Community Internal Medicine Ranjit Red P.A.-C. [address] [place] [address] [phone] (Wo rk) 01/12/2022 Appointment Laboratory Medicine Matthew Jerome M.B.B.SSuma, M.D. [address] [place] [phone] (Wo rk) 01/12/2022 Appointment Laboratory Medicine Adeline Frazier M.D., Ph.D. [address] [place] [phone] (Wo rk) 01/13/2022 Telemedicine Transplant Joel Tan L.I.C.SSumaW., M.S. W. [address] [place] [address] [phone] (Wo rk) 01/13/2022 Telemedicine Transplant Matthew Jerome M.B.B.SSuma, M.D. [address] [place] [phone] (Wo rk) 01/13/2022 Telemedicine Transplant Adeilne Frazier M.D., Ph.D. [address] [place] [phone] (Wo rk) 01/28/2022 Office Visit Gastroenterology and Matthew Jerome, Hepatology FredySSumaLilian [address] [place] [address] [phone] (Wo rk) Scheduled Procedures Name Priority Associated Diagnoses Date/Time ESOPHAGOGASTRODUODENOSCOPY Cirrhosis Alc oholic (HCC) Hypertension Portal (HCC) ESOPHAGOGASTRODUODENOSCOPY Cirrhosis Alc oholic (HCC) Ascites Anemia Macrocytic Thrombocytopenia (HC C) Deficiency Coagulation Acquired (HCC) Health Maintenance Due Date Last Done Comments Hepatitis A Vaccines (1 of 2 - 07/10/1991 Risk 2-dose series) Pneumococcal vaccine (0-64 years) 1996 (1 - PCV) Cervical Cancer Screening 02/28/2017 02/28/2014 COVID-19 Vaccine (3 - Booster for 09/13/2021 04/15/2021, Pfizer series) Influenza Vaccine (#1) 2022 03/07/2014, 02/26/2009, 02/26/2009, Additional history exists Abdominal Ultrasound 05/28/2022 11/25/2021, 11/09/2021, 07/26/2021, Additional history exists Creatinine Level 12/20/2022 12/20/2021, 12/04/2021, 12/02/2021, Additional history exists Potassium Level 12/20/2022 12/20/2021, 12/04/2021, 12/02/2021, Additional history exists Sodium Level 12/20/2022 12/20/2021, 12/04/2021, 12/02/2021, Additional history exists DTaP,Tdap,and Td Vaccines (7 - Td 03/07/2024 03/07/2014, , or Tdap) 05/26/1995, Additional history exists Hepatitis B Vaccines Completed 12/28/2000, 12/17/1997, 04/30/1997 HIV Screening Completed 09/30/2021 Depression Screening (Annual Completed 12/02/2021 PHQ-2) Medical Devices Implanted Type Area Copy Center Specialist Device Shelf Model / Identifier Expiration Serial / Date Lot Intrauterine Intrauterine N/A: Device Device Cervix Procedures Procedure Name Priority Date/Time Associated Comments Diagnosis PARACENTESIS Routine 12/21/2021 Results for 2:48 PM CDT this procedure are in the results section. HC URINALYSIS AUTO WO Routine 12/20/2021 Result s for MICRO 4:20 AM CDT this procedure are in the results section. DIPSTICK, U STAT 12/20/2021 Results for 4:17 AM CDT this procedure are in the results section. PH, RANDOM, U STAT 12/20/2021 Results for 4:17 AM CDT this procedure are in the results section. HC OSMOLALITY ASSAY STAT 12/20/2021 Results for URINE 4:17 AM CDT this procedure are in the results section. MICROSCOPIC MANUAL STAT 12/20/2021 Results f or 4:17 AM CDT this procedure are in the results section. URINALYSIS WITH STAT 12/20/2021 Results for MICROSCOPIC 4:17 AM CDT this procedure are in the results section. BACTERIAL CULTURE, STAT 12/20/2021 Results f or AEROBIC + SUSC, URINE 4:17 AM CDT this p rocedure are in the results section. LACTATE, B/P STAT 12/20/2021 Results for 3:36 AM CDT this procedure are in the results section. LIPASE, S/P STAT 12/20/2021 Results for 3:36 AM CDT this procedure are in the results section. HEPATIC FUNCTION PANEL, STAT 12/20/2021 Resu lts for S 3:36 AM CDT this procedure are in the results section. HUMAN CHORIONIC STAT 12/20/2021 Results for GONADOTROPIN (HCG), 3:36 AM CDT this pro cedure EDDI, are in the results section. BASIC METABOLIC PANEL, STAT 12/20/2021 Resul ts for S/P 3:36 AM CDT this procedure are in the results section. CBC WITH DIFFERENTIAL, B STAT 12/20/2021 Res ults for 3:36 AM CDT this procedure are in the results section. CARBOXY-THC Routine 12/15/2021 Results for CONFIRMATION, U 5:58 PM CDT this procedu re are in the results section. CONFIRMED DRUG ABUSE Routine 12/15/2021 Cannabis Use Results for PANEL, U 5:58 PM CDT Unspecified this procedure Uncomplicated are in the results section. ETHYL GLUCURONIDE Routine 12/15/2021 Alcohol Moderate Result s for CONFIRMATION, U 5:51 PM CDT Or Severe Use this proced ure Disorder are in the (Dependence) results Uncomplicated section. 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 (HCC) PARACENTESIS Routine 12/04/2021 Results for 9:57 AM CDT this procedure are in the results section. NITROUS OXIDE Routine 12/04/2021 9:46 AM CDT PATIENT STATUS STAT 12/04/2021 Results for 7:30 AM CDT this procedure are in the results section. HUMAN CHORIONIC STAT 12/04/2021 Results for GONADOTROPIN (HCG), 7:30 AM CDT this pro cedure EDDI, are in the results section. PROTHROMBIN TIME (PT), P STAT 12/04/2021 Res ults for 7:30 AM CDT this procedure are in the results section. LIPASE, S/P STAT 12/04/2021 Results for 7:30 AM CDT this procedure are in the results section. HEPATIC FUNCTION PANEL, STAT 12/04/2021 Resu lts for S 7:30 AM CDT this procedure are in the results section. CBC WITH DIFFERENTIAL, B STAT 12/04/2021 Res ults for 7:30 AM CDT this procedure are in the results section. BASIC METABOLIC PANEL, STAT 12/04/2021 Resul ts for S/P 7:30 AM CDT this procedure are in the results section. VENOUS BLOOD GAS W/COOX, STAT 12/04/2021 Res ults for B 7:30 AM CDT this procedure are in the results section. BASIC METABOLIC PANEL, Routine 12/02/2021 Change Mental Resu lts for S/P 4:14 PM CDT Status this procedure are in the results section. BILIRUBIN, TOT, S/P Routine 12/02/2021 Cirrhosis Results for 4:14 PM CDT Alcoholic (HCC) this procedure Hypertension are in the Portal (HCC) results Thrombocytopenia section. (HCC) Abnormal Liver Function Test PROTHROMBIN TIME (PT), P Routine 12/02/2021 Cirrhosis Res ults for 4:14 PM CDT Alcoholic (HCC) this procedure Hypertension are in the Portal (HCC) results Thrombocytopenia section. (HCC) Abnormal Liver Function Test DIPSTICK, U Routine 11/26/2021 Results for 6:59 AM CDT this procedure are in the results section. PH, U Routine 11/26/2021 Results for 6:59 AM CDT this procedure are in the results section. OSMOLALITY, U Routine 11/26/2021 Results for 6:59 AM CDT this procedure are in the results section. MICROSCOPIC AUTOMATED Routine 11/26/2021 Result s for 6:59 AM CDT this procedure are in the results section. URINALYSIS WITH Routine 11/26/2021 Results for MICROSCOPIC 6:59 AM CDT this procedure are in the results section. BACTERIAL CULTURE, Routine 11/26/2021 Results f or AEROBIC + SUSC, URINE 6:59 AM CDT this p rocedure are in the results section. CT ABDOMEN PELVIS WITH RAD - Routine 11/25/2021 Resu lts for IV CONTRAST (most 10:27 AM CDT this procedure inpatients and are in the all results outpatients) section. PHOSPHORUS (INORGANIC), Routine 11/25/2021 Resu lts for S 6:55 AM CDT this procedure are in the results section. MAGNESIUM, S Routine 11/25/2021 Results for 6:55 AM CDT this procedure are in the results section. BASIC METABOLIC PANEL, Routine 11/25/2021 Resul ts for S/P 6:55 AM CDT this procedure are in the results section. CBC WITH DIFFERENTIAL, B Routine 11/25/2021 Res ults for 6:55 AM CDT this procedure are in the results section. DX ABDOMEN PORTABLE RAD - 11/25/2021 Results for ANTERIOR POSTERIOR 1 Semiurgent 6:06 AM CDT this pr ocedure VIEW (Fast; most ED are in the patients; some results inpatients) section. US PARACENTESIS WITH RAD - Routine 11/24/2021 Result s for IMAGING GUIDANCE (most 1:28 PM CDT this proced ure inpatients and are in the all results outpatients) section. CBC WITH DIFFERENTIAL, B Routine 11/24/2021 Res ults for 10:39 AM CDT this procedure are in the results section. BASIC METABOLIC PANEL, Routine 11/23/2021 Resul ts for S/P 6:01 AM CDT this procedure are in the results section. CBC WITHOUT Routine 11/23/2021 Results for DIFFERENTIAL, B 6:01 AM CDT this procedu re are in the results section. DIPSTICK, U Routine 11/21/2021 Results for 6:42 PM CDT this procedure are in the results section. HC OSMOLALITY ASSAY Routine 11/21/2021 Results for URINE 6:42 PM CDT this procedure are in the results section. PH, RANDOM, U Routine 11/21/2021 Results for 6:42 PM CDT this procedure are in the results section. MICROSCOPIC MANUAL Routine 11/21/2021 Results f or 6:42 PM CDT this procedure are in the results section. URINALYSIS WITH Routine 11/21/2021 Results for MICROSCOPIC 6:42 PM CDT this procedure are in the results section. BACTERIAL CULTURE, Routine 11/21/2021 Results f or AEROBIC + SUSC, URINE 6:41 PM CDT this p rocedure are in the results section. SPSMA RESULT Routine 11/21/2021 Results for 11:25 AM CDT this procedure are in the results section. PERNICIOUS ANEMIA Routine 11/21/2021 Results fo r CASCADE, S 11:25 AM CDT this procedure are in the results section. CYSTATIN C WITH EGFR Routine 11/21/2021 Results for 11:25 AM CDT this procedure are in the results section. COMPREHENSIVE METABOLIC Routine 11/21/2021 Resu lts for PANEL, S/P 11:25 AM CDT this procedure are in the results section. CBC WITH DIFFERENTIAL, B Routine 11/21/2021 Res ults for 11:25 AM CDT this procedure are in the results section. COPPER, 24 HR, U Routine 11/21/2021 Results for 11:00 AM CDT this procedure are in the results section. CERULOPLASMIN, S Routine 11/20/2021 Results for 6:38 AM CDT this procedure are in the results section. DX ABDOMEN PORTABLE RAD - Routine 11/19/2021 Results for ANTERIOR POSTERIOR 1 (most 4:44 PM CDT this pr ocedure VIEW inpatients and are in the all results outpatients) section. TYPE AND SCREEN STAT 11/19/2021 Results for 2:55 PM CDT this procedure are in the results section. SEDIMENTATION RATE, B STAT 11/19/2021 Result s for 2:55 PM CDT this procedure are in the results section. C-REACTIVE PROTEIN STAT 11/19/2021 Results f or (CRP), S/P 2:55 PM CDT this procedure are in the results section. CBC WITHOUT STAT 11/19/2021 Results for DIFFERENTIAL, B 2:55 PM CDT this procedu re are in the results section. BACTERIA / RAUDEL Routine 11/19/2021 Results f or CULTURE, BLOOD 12:59 PM CDT this procedur e are in the results section. LACTATE, B/P Timed 11/19/2021 Results for 12:45 PM CDT this procedure are in the results section. BACTERIA / RAUDEL Routine 11/19/2021 Results f or CULTURE, BLOOD 12:45 PM CDT this procedur e are in the results section. PHOSPHORUS (INORGANIC), Routine 11/19/2021 Resu lts for S 7:13 AM CDT this procedure are in the results section. MAGNESIUM, S Routine 11/19/2021 Results for 7:13 AM CDT this procedure are in the results section. HEPATIC FUNCTION PANEL, Routine 11/19/2021 Resu lts for S 7:13 AM CDT this procedure are in the results section. BASIC METABOLIC PANEL, Routine 11/19/2021 Resul ts for S/P 7:13 AM CDT this procedure are in the results section. CBC WITH DIFFERENTIAL, B Routine 11/19/2021 Res ults for 7:13 AM CDT this procedure are in the results section. US PARACENTESIS WITH RAD - Routine 11/18/2021 Result s for IMAGING GUIDANCE (most 4:10 PM CDT this proced ure inpatients and are in the all results outpatients) section. CELL COUNT AND Timed 11/18/2021 Results for DIFFERENTIAL, BF 3:29 PM CDT this proced ure are in the results section. GRAM STAIN Routine 11/18/2021 Results for 3:29 PM CDT this procedure are in the results section. BACTERIAL CULTURE, Routine 11/18/2021 Results f or AEROBIC + SUSC 3:29 PM CDT this procedur e are in the results section. PHOSPHORUS (INORGANIC), Routine 11/18/2021 Resu lts for S 8:56 AM CDT this procedure are in the results section. MAGNESIUM, S Routine 11/18/2021 Results for 8:56 AM CDT this procedure are in the results section. COMPREHENSIVE METABOLIC Routine 11/18/2021 Resu lts for PANEL, S/P 8:56 AM CDT this procedure are in the results section. CBC WITH DIFFERENTIAL, B Routine 11/18/2021 Res ults for 8:56 AM CDT this procedure are in the results section. VIDEO EEG MONITORING Routine 11/17/2021 Results for 10:14 AM CDT this procedure are in the results section. VIDEO EEG MONITORING Routine 11/17/2021 Results for 10:14 AM CDT this procedure are in the results section. DX ABDOMEN PORTABLE RAD - Routine 11/16/2021 Results for ANTERIOR POSTERIOR 1 (most 9:08 PM CDT this pr ocedure VIEW inpatients and are in the all results outpatients) section. COMPREHENSIVE METABOLIC Routine 11/16/2021 Resu lts for PANEL, S/P 7:11 AM CDT this procedure are in the results section. CBC WITH DIFFERENTIAL, B Routine 11/16/2021 Res ults for 7:11 AM CDT this procedure are in the results section. MR BRAIN WITHOUT IV RAD - 11/15/2021 Results for CONTRAST Semiurgent 1:07 PM CDT this procedure (Fast; most ED are in the patients; some results inpatients) section. DRUG SCREEN URINE Routine 11/15/2021 Results fo r 11:15 AM CDT this procedure are in the results section. AMMONIA Routine 11/15/2021 Results for 6:14 AM CDT this procedure are in the results section. PHOSPHORUS (INORGANIC), Routine 11/15/2021 Resu lts for S 6:14 AM CDT this procedure are in the results section. MAGNESIUM, S Routine 11/15/2021 Results for 6:14 AM CDT this procedure are in the results section. HEPATIC FUNCTION PANEL, Routine 11/15/2021 Resu lts for S 6:14 AM CDT this procedure are in the results section. BASIC METABOLIC PANEL, Routine 11/15/2021 Resul ts for S/P 6:14 AM CDT this procedure are in the results section. CBC WITHOUT Routine 11/15/2021 Results for DIFFERENTIAL, B 6:14 AM CDT this procedu re are in the results section. PHOSPHORUS (INORGANIC), Timed 11/14/2021 Resu lts for S 9:00 PM CDT this procedure are in the results section. MAGNESIUM, S Timed 11/14/2021 Results for 9:00 PM CDT this procedure are in the results section. POTASSIUM, S/P Timed 11/14/2021 Results for 9:00 PM CDT this procedure are in the results section. HEPATIC FUNCTION PANEL, Routine 11/14/2021 Resu lts for S 6:56 AM CDT this procedure are in the results section. BASIC METABOLIC PANEL, Routine 11/14/2021 Resul ts for S/P 6:56 AM CDT this procedure are in the results section. CBC WITHOUT Routine 11/14/2021 Results for DIFFERENTIAL, B 6:56 AM CDT this procedu re are in the results section. SARS COV-2, ANTIGEN, Routine 11/13/2021 Results for RAPID, V 9:45 AM CDT this procedure are in the results section. HEPATIC FUNCTION PANEL, Routine 11/13/2021 Resu lts for S 6:19 AM CDT this procedure are in the results section. BASIC METABOLIC PANEL, Routine 11/13/2021 Resul ts for S/P 6:19 AM CDT this procedure are in the results section. CBC WITHOUT Routine 11/13/2021 Results for DIFFERENTIAL, B 6:19 AM CDT this procedu re are in the results section. DX ABDOMEN PORTABLE RAD - Routine 11/12/2021 Results for ANTERIOR POSTERIOR 1 (most 5:40 PM CDT this pr ocedure VIEW inpatients and are in the all results outpatients) section. CT HEAD WITHOUT IV RAD - 11/12/2021 Results f or CONTRAST Semiurgent 3:52 AM CDT this procedure (Fast; most ED are in the patients; some results inpatients) section. SARS CORONAVIRUS 2, PCR STAT 11/12/2021 Resu lts for RAPID, V 3:44 AM CDT this procedure are in the results section. DRUG SCREEN URINE STAT 11/12/2021 Results fo r 3:19 AM CDT this procedure are in the results section. PLACE PERIPHERAL IV Routine 11/12/2021 Results for 1:58 AM CDT this procedure are in the results section. LACTATE, POCT, B STAT 11/12/2021 Results for 1:54 AM CDT this procedure are in the results section. BLOOD GAS, POCT, B STAT 11/12/2021 Results f or 1:54 AM CDT this procedure are in the results section. PROTHROMBIN TIME (PT), P STAT 11/12/2021 Res ults for 1:54 AM CDT this procedure are in the results section. ACTIVATED PARTIAL STAT 11/12/2021 Results fo r THROMBOPLASTIN TIME 1:54 AM CDT this pro cedure (APTT), P are in the results section. ETHANOL, S STAT 11/12/2021 Results for 1:54 AM CDT this procedure are in the results section. THYROID-STIMULATING STAT 11/12/2021 Results for HORMONE-SENSITIVE 1:54 AM CDT this proce dure (S-TSH) are in the results section. BASIC METABOLIC PANEL, STAT 11/12/2021 Resul ts for S/P 1:54 AM CDT this procedure are in the results section. HEPATIC FUNCTION PANEL, STAT 11/12/2021 Resu lts for S 1:54 AM CDT this procedure are in the results section. HUMAN CHORIONIC STAT 11/12/2021 Results for GONADOTROPIN (HCG), 1:54 AM CDT this pro cedemelia EDDI, are in the results section. CBC WITH DIFFERENTIAL, B STAT 11/12/2021 Res ults for 1:54 AM CDT this procedure are in the results section. AMMONIA STAT 11/12/2021 Results for 1:54 AM CDT this procedure are in the results section. LACTATE, POCT, B Routine 11/12/2021 Results for 1:52 AM CDT this procedure are in the results section. VBG & LYTES CG8+, POCT, Routine 11/12/2021 Resu lts for B 1:51 AM CDT this procedure are in the results section. SPSMA RESULT Routine 11/11/2021 Results for 9:52 AM CDT this procedure are in the results section. PROTHROMBIN TIME (PT), P Routine 11/11/2021 Res ults for 4:31 AM CDT this procedure are in the results section. COMPREHENSIVE METABOLIC Routine 11/11/2021 Resu lts for PANEL, S/P 4:31 AM CDT this procedure are in the results section. CBC WITHOUT Routine 11/11/2021 Results for DIFFERENTIAL, B 4:31 AM CDT this procedu re are in the results section. C-REACTIVE PROTEIN Routine 11/11/2021 Results f or (CRP), S/P 4:28 AM CDT this procedure are in the results section. TRANSFUSE RED BLOOD Routine 11/10/2021 CELLS 4:35 PM CDT US PARACENTESIS WITH RAD - Routine 11/10/2021 Result s for IMAGING GUIDANCE (most 3:51 PM CDT this proced ure inpatients and are in the all results outpatients) section. ALBUMIN, BODY FLUID Timed 11/10/2021 Results for 2:32 PM CDT this procedure are in the results section. PROTEIN, TOTAL, BF Timed 11/10/2021 Results f or 2:32 PM CDT this procedure are in the results section. CELL COUNT AND Timed 11/10/2021 Results for DIFFERENTIAL, BF 2:32 PM CDT this proced ure are in the results section. GRAM STAIN Timed 11/10/2021 Results for 2:32 PM CDT this procedure are in the results section. BACTERIAL CULTURE, Timed 11/10/2021 Results f or AEROBIC + SUSC 2:32 PM CDT this procedur e are in the results section. ADULT OXYGEN THERAPY Routine 11/10/2021 2:30 PM CDT SPSMA RESULT Timed 11/10/2021 Results for 12:02 PM CDT this procedure are in the results section. DIRECT ANTIGLOBULIN TEST Timed 11/10/2021 Res ults for (POLYSPECIFIC) 12:02 PM CDT this procedur e are in the results section. HAPTOGLOBIN, S Timed 11/10/2021 Results for 12:02 PM CDT this procedure are in the results section. LACTATE DEHYDROGENASE Timed 11/10/2021 Result s for (LD), S 12:02 PM CDT this procedure are in the results section. RETICULOCYTES, B Timed 11/10/2021 Results for 12:02 PM CDT this procedure are in the results section. HEMOGLOBIN, B Timed 11/10/2021 Results for 12:02 PM CDT this procedure are in the results section. TRANSFUSE RED BLOOD Routine 11/10/2021 CELLS 9:55 AM CDT PROTHROMBIN TIME (PT), P Routine 11/10/2021 Res ults for 4:38 AM CDT this procedure are in the results section. PHOSPHORUS (INORGANIC), Routine 11/10/2021 Resu lts for S 4:38 AM CDT this procedure are in the results section. MAGNESIUM, S Routine 11/10/2021 Results for 4:38 AM CDT this procedure are in the results section. BASIC METABOLIC PANEL, Routine 11/10/2021 Resul ts for S/P 4:38 AM CDT this procedure are in the results section. CBC WITH DIFFERENTIAL, B Routine 11/10/2021 Res ults for 4:38 AM CDT this procedure are in the results section. PREPARE RED BLOOD CELLS Routine 11/10/2021 4:37 AM CDT PREPARE RED BLOOD CELLS Routine 11/10/2021 4:37 AM CDT TYPE AND SCREEN Routine 11/10/2021 Results for 4:37 AM CDT this procedure are in the results section. ECG Routine 11/09/2021 Results for 10:47 PM CDT this procedure are in the results section. US LIVER DOPPLER RAD - 11/09/2021 Results for Semiurgent 10:04 PM CDT this procedure (Fast; most ED are in the patients; some results inpatients) section. BACTERIA / RAUDEL Routine 11/09/2021 Results f or CULTURE, BLOOD 8:25 PM CDT this procedur e are in the results section. BACTERIA / RAUDEL Routine 11/09/2021 Results f or CULTURE, BLOOD 7:10 PM CDT this procedur e are in the results section. PHOSPHORUS (INORGANIC), STAT 11/09/2021 Resu lts for S 7:09 PM CDT this procedure are in the results section. ALPHA-FETOPROTEIN (AFP) STAT 11/09/2021 Resu lts for TM, S 7:09 PM CDT this procedure are in the results section. MAGNESIUM, S STAT 11/09/2021 Results for 7:09 PM CDT this procedure are in the results section. LACTATE, B/P STAT 11/09/2021 Results for 7:09 PM CDT this procedure are in the results section. HEPATIC FUNCTION PANEL, STAT 11/09/2021 Resu lts for S 7:09 PM CDT this procedure are in the results section. BASIC METABOLIC PANEL, STAT 11/09/2021 Resul ts for S/P 7:09 PM CDT this procedure are in the results section. C-REACTIVE PROTEIN STAT 11/09/2021 Results f or (CRP), S/P 7:09 PM CDT this procedure are in the results section. CBC WITH DIFFERENTIAL, B STAT 11/09/2021 Res ults for 7:09 PM CDT this procedure are in the results section. EXTP TRANSPLANT/HEART - Routine 10/25/2021 Resu lts for BLOOD, EXTERNAL LAB 7:18 AM CDT this pro cedure RESULTS are in the results section. BMD BONE DENSITY SPINE RAD - Routine 10/09/2021 Cirrhosis Resu lts for HIPS (most 4:37 PM CDT Alcoholic (HCC) this procedure inpatients and Abnormal Liver are in the all Function Test results outpatients) Ascites section. Pretransplant Recipient Evaluation Exam Preoperative Exam PULMONARY FUNCTION TESTS Routine 10/07/2021 Cirrhosis Res ults for 3:07 PM CDT Alcoholic (HCC) this procedure Abnormal Liver are in the Function Test results Ascites section. Pretransplant Recipient Evaluation Exam Preoperative Exam IOTHALAMATE, GLOMERULAR Routine 10/03/2021 Resu lts for FILTRATION RATE, P 11:18 AM CDT this proc edure are in the results section. PHOSPHATIDYLETHANOL Routine 10/02/2021 Alcohol Use Results for (PETH) 11:12 AM CDT Unspecified With this proced ure Unspecified are in the Alcohol Induced results Disorder (HCC) section. DIPSTICK, U Routine 09/30/2021 Results for 8:23 AM CDT this procedure are in the results section. [place] OSMOLALITY ASSAY Routine 09/30/2021 Results for URINE 8:23 AM CDT this procedure are in the results section. PH, RANDOM, U Routine 09/30/2021 Results for 8:23 AM CDT this procedure are in the results section. MICROSCOPIC MANUAL Routine 09/30/2021 Results f or 8:23 AM CDT this procedure are in the results section. ETHYL GLUCURONIDE SCRN Routine 09/30/2021 Cirrhosis Resul ts for W/REFLEX, U 8:23 AM CDT Alcoholic (HCC) this procedure Abnormal Liver are in the Function Test results Ascites section. Pretransplant Recipient Evaluation Exam Preoperative Exam CONFIRMED DRUG ABUSE Routine 09/30/2021 Cirrhosis Results for PANEL 9, U 8:23 AM CDT Alcoholic (HCC) this procedure Abnormal Liver are in the Function Test results Ascites section. Pretransplant Recipient Evaluation Exam Preoperative Exam URINALYSIS WITH Routine 09/30/2021 Cirrhosis Results for MICROSCOPIC 8:23 AM CDT Alcoholic (HCC) this procedure Abnormal Liver are in the Function Test results Ascites section. Pretransplant Recipient Evaluation Exam Preoperative Exam BACTERIAL CULTURE, Routine 09/30/2021 Cirrhosis Results f or AEROBIC + SUSC, URINE 8:23 AM CDT Alcoholic (HCC) this procedure Abnormal Liver are in the Function Test results Ascites section. Pretransplant Recipient Evaluation Exam Preoperative Exam TRANSPLANT ABO Routine 09/30/2021 Cirrhosis Results for CONFIRMATION 7:43 AM CDT Alcoholic (HCC) this procedure Abnormal Liver are in the Function Test results Ascites section. Pretransplant Recipient Evaluation Exam Preoperative Exam HEMOGLOBIN A1C, B Routine 09/30/2021 Cirrhosis Results fo r 7:39 AM CDT Alcoholic (HCC) this procedure Abnormal Liver are in the Function Test results Ascites section. Pretransplant Recipient Evaluation Exam Preoperative Exam CBC NO CALL BACK, REFLEX Routine 09/30/2021 Cirrhosis Res ults for T/S 7:39 AM CDT Alcoholic (HCC) this procedure Abnormal Liver are in the Function Test results Ascites section. Pretransplant Recipient Evaluation Exam Preoperative Exam HLA CLASS II TYPING Routine 09/30/2021 Cirrhosis Results for LOWRES, RECIP,B 7:38 AM CDT Alcoholic (HCC) this procedure Abnormal Liver are in the Function Test results Ascites section. Pretransplant Recipient Evaluation Exam Preoperative Exam HLA CLASS I TYPING Routine 09/30/2021 Cirrhosis Results f or LOWRES, RECIP,B 7:38 AM CDT Alcoholic (HCC) this procedure Abnormal Liver are in the Function Test results Ascites section. Pretransplant Recipient Evaluation Exam Preoperative Exam [id number] Routine 09/30/2021 Cirrhosis Results for PROTEOTYPE S/Z BY 7:38 AM CDT Alcoholic (HCC ) this procedure LC-MS/MS, S Abnormal Liver are in the Function Test results Ascites section. Pretransplant Recipient Evaluation Exam Preoperative Exam PHOSPHATIDYLETHANOL Routine 09/30/2021 Cirrhosis Results for (PETH) 7:38 AM CDT Alcoholic (HCC) this procedure Abnormal Liver are in the Function Test results Ascites section. Pretransplant Recipient Evaluation Exam Preoperative Exam HUMAN CHORIONIC Routine 09/30/2021 Cirrhosis Results for GONADOTROPIN (HCG), 7:38 AM CDT Alcoholic (H CC) this procedure EDDI, Abnormal Liver are in the Function Test results Ascites section. Pretransplant Recipient Evaluation Exam Preoperative Exam ALPHA-FETOPROTEIN (AFP) Routine 09/30/2021 Cirrhosis Resu lts for TM, S 7:38 AM CDT Alcoholic (HCC) this procedure Abnormal Liver are in the Function Test results Ascites section. Pretransplant Recipient Evaluation Exam Preoperative Exam VITAMIN E, S Routine 09/30/2021 Cirrhosis Results for 7:38 AM CDT Alcoholic (HCC) this procedure Abnormal Liver are in the Function Test results Ascites section. Pretransplant Recipient Evaluation Exam Preoperative Exam 25-HYDROXYVITAMIN D2 AND Routine 09/30/2021 Cirrhosis Res ults for D3, S 7:38 AM CDT Alcoholic (HCC) this procedure Abnormal Liver are in the Function Test results Ascites section. Pretransplant Recipient Evaluation Exam Preoperative Exam VITAMIN A, S Routine 09/30/2021 Cirrhosis Results for 7:38 AM CDT Alcoholic (HCC) this procedure Abnormal Liver are in the Function Test results Ascites section. Pretransplant Recipient Evaluation Exam Preoperative Exam FOLATE, S Routine 09/30/2021 Cirrhosis Results for 7:38 AM CDT Alcoholic (HCC) this procedure Abnormal Liver are in the Function Test results Ascites section. Pretransplant Recipient Evaluation Exam Preoperative Exam PARATHYROID HORMONE Routine 09/30/2021 Cirrhosis Results for (PTH), S 7:38 AM CDT Alcoholic (HCC) this procedure Abnormal Liver are in the Function Test results Ascites section. Pretransplant Recipient Evaluation Exam Preoperative Exam T4 (THYROXINE), FREE, S Routine 09/30/2021 Cirrhosis Resu lts for 7:38 AM CDT Alcoholic (HCC) this procedure Abnormal Liver are in the Function Test results Ascites section. Pretransplant Recipient Evaluation Exam Preoperative Exam THYROID-STIMULATING Routine 09/30/2021 Cirrhosis Results for HORMONE-SENSITIVE 7:38 AM CDT Alcoholic (HCC ) this procedure (S-TSH) Abnormal Liver are in the Function Test results Ascites section. Pretransplant Recipient Evaluation Exam Preoperative Exam TYPE AND SCREEN Routine 09/30/2021 Cirrhosis Results for 7:38 AM CDT Alcoholic (HCC) this procedure Abnormal Liver are in the Function Test results Ascites section. Pretransplant Recipient Evaluation Exam Preoperative Exam PHOSPHORUS (INORGANIC), Routine 09/30/2021 Cirrhosis Resu lts for S 7:38 AM CDT Alcoholic (HCC) this procedure Abnormal Liver are in the Function Test results Ascites section. Pretransplant Recipient Evaluation Exam Preoperative Exam LIPID PANEL, S Routine 09/30/2021 Cirrhosis Results for 7:38 AM CDT Alcoholic (HCC) this procedure Abnormal Liver are in the Function Test results Ascites section. Pretransplant Recipient Evaluation Exam Preoperative Exam GAMMA-GLUTAMYLTRANSFERAS Routine 09/30/2021 Cirrhosis Res ults for E (GGT), S/P 7:38 AM CDT Alcoholic (HCC) this procedure Abnormal Liver are in the Function Test results Ascites section. Pretransplant Recipient Evaluation Exam Preoperative Exam HEPATIC FUNCTION PANEL, Routine 09/30/2021 Cirrhosis Resu lts for S 7:38 AM CDT Alcoholic (HCC) this procedure Abnormal Liver are in the Function Test results Ascites section. Pretransplant Recipient Evaluation Exam Preoperative Exam BASIC METABOLIC PANEL, Routine 09/30/2021 Cirrhosis Resul ts for S/P 7:38 AM CDT Alcoholic (HCC) this procedure Abnormal Liver are in the Function Test results Ascites section. Pretransplant Recipient Evaluation Exam Preoperative Exam QUANTIFERON-TB GOLD Routine 09/30/2021 Cirrhosis Results for PLUS, B 7:38 AM CDT Alcoholic (HCC) this procedure Abnormal Liver are in the Function Test results Ascites section. Pretransplant Recipient Evaluation Exam Preoperative Exam HCV RNA DETECT/QUANT Routine 09/30/2021 Cirrhosis Results for 7:38 AM CDT Alcoholic (HCC) this procedure Abnormal Liver are in the Function Test results Ascites section. Pretransplant Recipient Evaluation Exam Preoperative Exam HCV AB SCRN W/REFLEX TO Routine 09/30/2021 Cirrhosis Resu lts for HCV PCR, S 7:38 AM CDT Alcoholic (HCC) this procedure Abnormal Liver are in the Function Test results Ascites section. Pretransplant Recipient Evaluation Exam Preoperative Exam HBC TOTAL AB SCRN, S Routine 09/30/2021 Cirrhosis Results for 7:38 AM CDT Alcoholic (HCC) this procedure Abnormal Liver are in the Function Test results Ascites section. Pretransplant Recipient Evaluation Exam Preoperative Exam HBS ANTIBODY SCRN, S Routine 09/30/2021 Cirrhosis Results for 7:38 AM CDT Alcoholic (HCC) this procedure Abnormal Liver are in the Function Test results Ascites section. Pretransplant Recipient Evaluation Exam Preoperative Exam HEPATITIS A IGM AB Routine 09/30/2021 Cirrhosis Results f or 7:38 AM CDT Alcoholic (HCC) this procedure Abnormal Liver are in the Function Test results Ascites section. Pretransplant Recipient Evaluation Exam Preoperative Exam HEPATITIS A IGG AB S Routine 09/30/2021 Cirrhosis Results for 7:38 AM CDT Alcoholic (HCC) this procedure Abnormal Liver are in the Function Test results Ascites section. Pretransplant Recipient Evaluation Exam Preoperative Exam HIV-1/-2 AG AND AB Routine 09/30/2021 Cirrhosis Results f or SCREEN, PLASMA 7:38 AM CDT Alcoholic (HCC) this procedure Abnormal Liver are in the Function Test results Ascites section. Pretransplant Recipient Evaluation Exam Preoperative Exam ZINC, S Routine 09/30/2021 Cirrhosis Results for 7:37 AM CDT Alcoholic (HCC) this procedure Abnormal Liver are in the Function Test results Ascites section. Pretransplant Recipient Evaluation Exam Preoperative Exam PROTHROMBIN TIME (PT), P Routine 09/30/2021 Cirrhosis Res ults for 7:37 AM CDT Alcoholic (HCC) this procedure Abnormal Liver are in the Function Test results Ascites section. Pretransplant Recipient Evaluation Exam Preoperative Exam RUBELLA ANTIBODIES, IGG Routine 09/30/2021 Cirrhosis Resu lts for 7:37 AM CDT Alcoholic (HCC) this procedure Abnormal Liver are in the Function Test results Ascites section. Pretransplant Recipient Evaluation Exam Preoperative Exam MEASLES (RUBEOLA) AB, Routine 09/30/2021 Cirrhosis Result s for IGG 7:37 AM CDT Alcoholic (HCC) this procedure Abnormal Liver are in the Function Test results Ascites section. Pretransplant Recipient Evaluation Exam Preoperative Exam TOXOPLASMA GONDII Routine 09/30/2021 Cirrhosis Results fo r ANTIBODY, IGG 7:37 AM CDT Alcoholic (HCC) this procedure Abnormal Liver are in the Function Test results Ascites section. Pretransplant Recipient Evaluation Exam Preoperative Exam MUMPS AB, IGG Routine 09/30/2021 Cirrhosis Results for 7:37 AM CDT Alcoholic (HCC) this procedure Abnormal Liver are in the Function Test results Ascites section. Pretransplant Recipient Evaluation Exam Preoperative Exam SYPHILIS IGG W/ REFLEX, Routine 09/30/2021 Cirrhosis Resu lts for EIA, S 7:37 AM CDT Alcoholic (HCC) this procedure Abnormal Liver are in the Function Test results Ascites section. Pretransplant Recipient Evaluation Exam Preoperative Exam EBV AB PROFILE Routine 09/30/2021 Cirrhosis Results for 7:37 AM CDT Alcoholic (HCC) this procedure Abnormal Liver are in the Function Test results Ascites section. Pretransplant Recipient Evaluation Exam Preoperative Exam VARICELLA-ZOSTER AB, IGM Routine 09/30/2021 Cirrhosis Res ults for AND IGG 7:37 AM CDT Alcoholic (HCC) this procedure Abnormal Liver are in the Function Test results Ascites section. Pretransplant Recipient Evaluation Exam Preoperative Exam HSV TYPES 1 AND 2 AB, Routine 09/30/2021 Cirrhosis Result s for IGG 7:37 AM CDT Alcoholic (HCC) this procedure Abnormal Liver are in the Function Test results Ascites section. Pretransplant Recipient Evaluation Exam Preoperative Exam CYTOMEGALOVIRUS AB, IGM Routine 09/30/2021 Cirrhosis Resu lts for AND IGG 7:37 AM CDT Alcoholic (HCC) this procedure Abnormal Liver are in the Function Test results Ascites section. Pretransplant Recipient Evaluation Exam Preoperative Exam from Last 3 Months Results Paracentesis (12/21/2021 2:48 PM CDT) Narrative Divina Ch D.O., M.P.H. - 12/02 2:48 PM CDT Divina Ch D.O., M.P.H. ? 12/21/2021 ??2:49 PM Paracentesis Date/Time: 12/21/2021 2:48 PM Performed by: Divina Ch D.O., M.P.H. Authorized by: Clifton Liu M.D. PROCEDURE DETAILS Equipment: paracentesis tray Needle gauge: 20 Ultrasound image guidance used to locali ze target, identify at risk structures, and dynamically used to dire ct therapy to the target. Image(s) not saved. Puncture site: right lower quadrant Fluid removed amount (mL): 3 Fluid appearance: olive Specimen: no specimen sent CONSENT Consent obtained: verbal Consent given by: patient [employer] All relevant documentation and testing w ere reviewed and available. All required blood products, implants, devic es and or special equipment were made available as applicable. Pre-proced ure verification was conducted and the correct site was marked if required. A fire risk assessment was done as applicable. The procedural time-out t o verify correct patient, correct side/site, and procedure was conducted p rior to performing the procedure and confirmed in a procedural pause. PRE-PROCEDURE DETAILS Procedure purpose: therapeutic Indications: ascites Appropriate hand hygiene, gown, cap, mas k, protective eyewear, sterile gloves, skin preparation, sterile drape, and strict aseptic technique were utilized as applicable for the procedure .: yes ?? Skin preparation: chlorhexidine SEDATION / ANESTHESIA Anesthesia method: local infiltration Local infiltrate type: lidocaine POST-PROCEDURE DETAILS Albumin replacement: 25g- 25% albumin Dressing: adhesive bandage Procedure completed successfully: yes ?? Complications comment: Required 2 attemp ts. Clifton Liu M.D. PROCEDURE/MINOR SURGICAL ORD ERABLES Dipstick, POCT, Urine (12/20/2021 4:20 AM CDT) Patholo gist Method Time Signature Glucose, POCT, Negative Negative 12/20/2021 PCED U mg/dL 4:22 AM CDT Ketone, POCT, Negative Negative 12/20/2021 [facility] U mg/dL 4:22 AM CDT Specific 1.020 1.005 - 12/20/2021 PC[facility] Watson, POCT, 1.030 4:22 AM CDT U Blood, POCT, U Negative Negative 12/20/2021 [facility] 4:22 AM CDT pH, POCT, 5.5 5.0 - 8.0 12/20/2021 [facility] Urine 4:22 AM CDT Protein, POCT, Negative Negative 12/20/2021 [facility] U mg/dL 4:22 AM CDT Nitrites, Negative Negative 12/20/2021 [facility] POCT, U 4:22 AM CDT Leukocytes, Negative Negative 12/20/2021 [facility] POCT, U 4:22 AM CDT Specimen Anatomical Collection Method Collection Time Receive d Time (Source) Location / / Volume Laterality Urine 12/20/2021 4:20 AM 2 4:22 CDT AM CDT Unknown Provider LAB POCT ORDERABLES - DEVICE Performing Organization Address City/State/ZIP Code Phon e Number POC [facility] [address] [place] [address] OUTPATIENT LABS PCED [facility] [place], [place] [id number] [place] [address] [facility] Osmolality, Urine (12/20/2021 4:17 AM CDT)Only the most recent of3 resultswithin the time period is included. athologist Signature Osmolality, U 451 150 - 1150 12/20/2021 DTL mOsm/kg 5:17 AM CDT Specimen Anatomical Collection Method Collection Time Receive d Time (Source) Location / / Volume Laterality Urine 12/20/2021 4:17 AM 2 5:00 CDT AM CDT Harinder Nguyễn M.D. LAB URINE ORDERABLES Performing Organization Address City/State/ZIP Code Phon e Number [facility] - [address] Dipstick, Urine (12/20/2021 4:17 AM CDT)Only the most recent of4 resultswithin the time period is included. Patholo gist Method Time Signature Hemoglobin, Negative Negative 12/20/2021 DTL QL, U 5:10 AM CDT Leukocyte Negative Negative 12/20/2021 DTL Esterase, U 5:10 AM CDT Nitrite, U Negative Negative 12/20/2021 DTL 5:10 AM CDT Ketone, U Negative Negative 12/20/2021 DTL mg/dL 5:10 AM CDT Glucose, U Negative Negative 12/20/2021 DTL mg/dL 5:10 AM CDT Specimen Anatomical Collection Method Collection Time Receive d Time (Source) Location / / Volume Laterality Urine 12/20/2021 4:17 AM 2 5:00 CDT AM CDT Harinder Nguyễn M.D. LAB URINE ORDERABLES Performing Organization Address City/[facility] Phon e Number [facility] - [address] pH, Random, Urine (12/20/2021 4:17 AM CDT)Only the most recent of3 resultswithin the time period is included. P athologist Signature pH, Random, U 5.5 4.5 - 8.0 12/20/2021 DT 5:17 AM CDT Specimen Anatomical Collection Method Collection Time Receive d Time (Source) Location / / Volume Laterality Urine 12/20/2021 4:17 AM 2 5:00 CDT AM CDT Harinder Nguyễn M.D. LAB URINE ORDERABLES Performing Organization Address City/[facility]/ZIP Code Phon e Number [facility] - [address] Microscopic Manual (12/20/2021 4:17 AM CDT)Only the most recent of3 results within the time period is included. P athologist Signature Microscopy Normal 12/20/2021 DTL 5:29 AM CDT Casts, Hyaline 1-3 /lpf 12/20/2021 DTL 5:29 AM CDT Specimen Anatomical Collection Method Collection Time Receive d Time (Source) Location / / Volume Laterality Urine 12/20/2021 4:17 AM 5:00 CDT AM CDT Harinder Nguyễn M.D. LAB URINE ORDERABLES Performing Organization Address [facility] Phon e Number [facility] - 200 [place], [place] [address] [place] [place] [address] Bacterial Culture, Aerobic + Susc, Urine (12/20/2021 4:17 AM CDT)Only the most recent of4 resultswithin the time period is included. [facility] Method Time Signature Urine Culture No growth 12/21/2021 DT after 1 day 8:03 AM CDT of incubation. Specimen Anatomical Collection Method Collection Time Receive d Time (Source) Location / / Volume Laterality Urine (Urine, 12/20/2021 4:17 AM 12/21/19 7:48 Midstream) CDT AM CDT Comment: Specimen Source Site: Urine Harinder Nguyễn M.D. LAB MICROBIOLOGY - GENERAL O RDERABLES Performing Organization Address City/[facility] Phon e Number [facility] - 200 [place], [place] [address] [facility] [place] [address] Urinalysis with Microscopic: Urine, Midstream (12/20/2021 4:17 AM CDT)Only the most recent of4 resultswithin the time period is included. [facility] Method Time Signature Source Urine, Urine, 12/20/2021 DTL Midstream 5:00 AM CDT Color, U Yellow 12/20/2021 DTL 5:00 AM CDT Clarity, U Clear 12/20/2021 DTL 5:00 AM CDT Protein, U 10 <26 mg/dL 12/20/2021 DTL 5:41 AM CDT Protein/Osmol 0.22 <0.42 12/20/2021 DTL ality ratio 5:41 AM CDT Predicted 24 170 mg/24 h 12/20/2021 DTL Hr Protein 5:41 AM CDT Predicted 42-690 mg/24 h 12/20/2021 DTL Range 5:41 AM CDT Comment Micro done on 12/20/2021 DTL <10 mL 5:27 AM CDT Specimen Anatomical Collection Method Collection Time Receive d Time (Source) Location / / Volume Laterality Urine (Urine, 12/20/2021 4:17 AM 12/21/19 5:00 Midstream) CDT AM CDT Harinder Nguyễn M.D. LAB URINE ORDERABLES Performing Organization Address City/State/[facility] Code Phon e Number [facility] - [address] [place] [address] [address] [facility] [place] [address] [facility] [address] [facility] (ABNORMAL) Hepatic Function Panel (12/20/2021 3:36 AM CDT)Only the most recent of9 resultswithin the time period is included. Patholo gist Method Time Signature Bilirubin, Total, S 10.2 (H) <=1.2 12/20/2021 DTL mg/dL 4:45 AM CDT Bilirubin, Direct, S 5.0 (H) 0.0 - 0.3 12/20/2021 DTL mg/dL 4:45 AM CDT Aspartate 86 (H) 8 - 43 12/20/2021 DTL Aminotransferase U/L 4:45 AM CDT (AST), S Alanine 41 7 - 45 12/20/2021 DTL Aminotransferase U/L 4:45 AM CDT (ALT), S Alkaline 294 (H) 35 - 104 12/20/2021 DTL Phosphatase, S U/L 4:45 AM CDT Albumin, S 3.4 (L) 3.5 - 5.0 12/20/2021 DTL g/dL 4:45 AM CDT Protein, Total, S 5.6 (L) 6.3 - 7.9 12/20/2021 DTL g/dL 4:45 AM CDT Specimen Anatomical Collection Method Collection Time Receive d Time (Source) Location / / Volume Laterality Blood (Blood, 12/20/2021 3:36 AM 12/21/19 4:00 Venous) CDT AM CDT Harinder Nguyễn M.D. LAB BLOOD ADD-ON Performing Organization Address City/State/ZIP Code Phon e Number [facility] - 200 [place], [place] [address] [facility] [place] [address] [facility] [address] [facility] (ABNORMAL) CBC with Differential, Blood (12/20/2021 3:36 AM CDT)Only the most recent of11 resultswithin the time period is included. [facility] Method Time Signature Hemoglobin 8.0 (L) 11.6 - 12/20/2021 [facility] 15.0 g/dL 3:44 AM CDT Hematocrit 23.3 (L) 35.5 - 12/20/2021 [facility] 44.9 % 3:44 AM CDT Erythrocytes 2.14 (L) 3.92 - 12/20/2021 [facility] 5.13 3:44 AM CDT x10(12)/L MCV 108.9 (H) 78.2 - 12/20/2021 [facility] 97.9 fL 3:44 AM CDT RBC Distrib Width 13.2 12.2 - 12/20/2021 [facility] 16.1 % 3:44 AM CDT Platelet Count 54 (L) 157 - 371 12/20/2021 [facility] x10(9)/L 3:44 AM CDT Leukocytes 7.5 3.4 - 9.6 12/20/2021 [facility] x10(9)/L 3:44 AM CDT Neutrophils 5.98 1.56 - 12/20/2021 [facility] 6.45 3:44 AM CDT x10(9)/L Lymphocytes 0.83 (L) 0.95 - 12/20/2021 [facility] 3.07 3:44 AM CDT x10(9)/L Monocytes 0.64 0.26 - 12/20/2021 [facility] 0.81 3:44 AM CDT x10(9)/L Eosinophils <0.03 0.03 - 12/20/2021 [facility] 0.48 3:44 AM CDT x10(9)/L Basophils 0.05 0.01 - 12/20/2021 [facility] 0.08 3:44 AM CDT x10(9)/L Specimen Anatomical Collection Method Collection Time Receive d Time (Source) Location / / Volume Laterality Blood (Blood, 12/20/2021 3:36 AM 12/21/19 22 3:41 Venous) CDT AM CDT Harinder Nguyễn M.D. LAB BLOOD ADD-ON Performing Organization Address [facility] Phon e Number [facility] - [address] hCG (Human Chorionic Gonadotropin), Quantitative, (12/20/2021 3:36 AM CDT)Only the most recent of4 resultswithin the time period is included. P athologist Signature HCG, 0.5 <5 IU/L 12/20/2021 [facility] Quantitative, 4:31 AM CDT , P Specimen Anatomical Collection Method Collection Time Receive d Time (Source) Location / / Volume Laterality Blood (Blood, 12/20/2021 3:36 AM 12/21/19 3:41 Venous) CDT AM CDT Harinder Nguyễn M.D. LAB BLOOD ADD-ON Performing Organization Address [facility] Phon e Number [facility] - [address] [place] [address] Lipase (12/20/2021 3:36 AM CDT)Only the most recent of2 resultswithin the time period is included. P athologist Signature Lipase, S 36 13 - 60 U/L 12/20/2021 4:45 DTL AM CDT Specimen Anatomical Collection Method Collection Time Receive d Time (Source) Location / / Volume Laterality Blood (Blood, 12/20/2021 3:36 AM 12/21/19 22 4:00 Venous) CDT AM CDT Harinder Nguyễn M.D. LAB BLOOD ADD-ON Performing Organization Address City/[facility] Phon e Number [facility] - 200 [place], [place] [address] [facility] [place] [address] [facility]-[address] Lactate (12/20/2021 3:36 AM CDT)Only the most recent of3 resultswithin the time period is included. P athologist Signature Lactate, P 1.8 0.5 - 2.2 12/20/2021 [facility] mmol/L 3:54 AM CDT Specimen Anatomical Collection Method Collection Time Receive d Time (Source) Location / / Volume Laterality Blood (Blood, 12/20/2021 3:36 AM 12/21/19 3:41 Venous) CDT AM CDT Harinder Nguyễn M.D. LAB BLOOD NON ADD-ON Performing Organization Address [facility] Phon e Number [facility] - 200 [place] [address] 05 [facility] [place] [address] Laboratories-[address] (ABNORMAL) Basic Metabolic Panel (12/20/2021 3:36 AM CDT)Only the most recent of 13 resultswithin the time period is included. Analysis Performed At Patho logist Time Signature Potassium, P 5.1 3.6 - 5.2 12/20/2021 [facility] mmol/L 4:08 AM CDT Sodium, P 130 (L) 135 - 145 12/20/2021 [facility] mmol/L 4:08 AM CDT Chloride, P 100 98 - 107 12/20/2021 [facility] mmol/L 4:08 AM CDT Bicarbonate, P 17 (L) 22 - 29 12/20/2021 [facility] mmol/L 4:08 AM CDT Anion Gap, P 13 7 - 15 12/20/2021 [facility] 4:08 AM CDT BUN (Blood Urea 16 6 - 21 12/20/2021 [facility] Nitrogen), P mg/dL 4:08 AM CDT Creatinine 1.06 (H) 0.59 - 12/20/2021 [facility] 1.04 mg/dL 4:08 AM CDT eGFR-Black/Afri 81 >=60 12/20/2021 [facility] can English mL/min/BSA 4:08 AM CDT Comment: ----ADDITIONAL INFORMATION---- Estimated GFR calculated using the 2009 CKD_EPI creatinine equation. eGFR Non-Black/ 70 >=60 mL/min/BSA 4:08 AM CDT [facility] Comment: ----ADDITIONAL INFORMATION---- Estimated GFR calculated using the 2009 CKD_EPI creatinine equation. Calcium, Total, P 8.9 8.6 - 10.0 mg/dL 12/20/2021 4:08 AM CDT [facility] Glucose, P 143 (H) 70 - 140 mg/dL 12/20/2021 4:08 AM CDT S TMA Specimen Anatomical Collection Method Collection Time Receive d Time (Source) Location / / Volume Laterality Blood (Blood, 12/20/2021 3:36 AM 12/21/19 3:41 Venous) CDT AM CDT Harinder Nguyễn M.D. LAB BLOOD ADD-ON Performing Organization Address City/State/ZIP Code Phon e Number [facility] - [address] [place] [address] 05 [place] [address] [facility] [address] [facility] Carboxy-Tetrahydrocannabinol (THC) Confirmation, Urine (12/15/2021 5:58 PM CDT) [facility] Method Time Signature Carboxy-THC- by 19 Cutoff: 12/18/2021 [facility] GC/MS 3.0 ng/mL 6:38 AM CDT Carboxy-THC Positive. 12/18/2021 [facility] Interpretation 6:38 AM CDT Comment: ----ADDITIONAL INFORMATION---- This report is intended for use in clini ada monitoring and management of patients. ??It is not intended for use i n employment-related testing. This test was developed and its performa nce characteristics determined by [facility] in a manner consistent with CLIA requirements. This test has not been cleared or approved by the [place] and Drug Administration. Specimen Anatomical Collection Method Collection Time Receive d Time (Source) Location / / Volume Laterality Urine 12/15/2021 5:58 PM 2 7:09 CDT AM CDT Adeline Frazier M.D., Ph.D. LAB URINE ORDERABLES Performing Organization Address City/[facility] Code Phon e Number [facility] [address] [place], [place] [address] [place], [place] [address]. [place] [address] Laboratory Medicine and Pathology [address] [place] (ABNORMAL) Drug Abuse Survey with Confirmation, Urine (12/15/2021 5:58 PM CDT) [facility] Method Time Signature Alcohol Negative Cutoff: 10 12/16/2021 [facility] mg/dL 9:49 AM CDT Amphetamines Negative Cutoff: 12/16/2021 [facility] 500 ng/mL 9:49 AM CDT Barbiturates Negative Cutoff: 12/16/2021 [facility] 200 ng/mL 9:49 AM CDT Benzodiazepines Negative Cutoff: 12/16/2021 [facility] 100 ng/mL 9:49 AM CDT Cocaine Negative Cutoff: 12/16/2021 [facility] 150 ng/mL 9:49 AM CDT Comment: This cocaine immunoassay targets benzoyl ecgonine the primary metabolite of cocaine. Opiates Negative Cutoff: 300 12/16/2021 9:49 AM [facility] ng/mL CDT Phencyclidine Negative Cutoff: 25 ng/mL 12/16/2021 9:49 AM [facility] CDT Tetrahydrocannabinol Presumptive Positive Cutoff: 50 ng/mL 12/16/2021 9:49 AM [facility] (A) CDT Comment: This immunoassay targets delta-9 tetrahy drocannabinol carboxylic acid (THC-COOH), a metabolite of delta-9 tetr ahydrocannabinol the main psychoactive ingredient of marijuana. Drug confirmation to follow. ??Presumpti ve Positive means that the screening method is positive, but the test needs t o be run by a confirmatory method before being finalized. ----ADDITIONAL INFORMATION---- This report is intended for use in clini ada monitoring or management of patients. ??It is not intended for use i n employment-related testing. Specimen Anatomical Collection Method Collection Time Receive d Time (Source) Location / / Volume Laterality Urine (Urine, 12/15/2021 5:58 PM 12/17/19 7:09 Clean Catch) CDT AM CDT Adeline Frazier M.D., Ph.D. LAB URINE ORDERABLES Performing Organization Address City/State/[facility] Phon e Number [facility] [address] [place] [address] [address] [facility] [place] [address] Laboratory Medicine and Pathology [address] [place] [address] Dr. [place] Ethyl Glucuronide Confirmation, Random, Urine (12/15/2021 5:51 PM CDT) Patholo gist Method Time Signature Ethyl Glucuronide Negative Cutoff: 12/17/2021 SDS Confirmation, U 250 ng/mL 10:34 AM CDT Ethyl Sulfate Negative Cutoff: 12/17/2021 [facility] 100 ng/mL 10:34 AM CDT Ethyl Gluc/Sulfate Negative. 12/17/2021 [facility] Interpretation 10:34 AM CDT Comment: ----ADDITIONAL INFORMATION---- This report is intended for use in clini ada monitoring and management of patients. ??It is not intended for use i n employment-related testing. This test was developed and its performa nce characteristics determined by [facility] in a manner consistent with CLIA requirements. This test has not been cleared or approved by the [place] and Drug Administration. Specimen Anatomical Collection Method Collection Time Receive d Time (Source) Location / / Volume Laterality Urine (Urine, 12/15/2021 5:51 PM 12/16/19 9:55 Midstream) CDT PM CDT Adeline Frazier M.D., Ph.D. LAB URINE ORDERABLES Performing Organization Address [facility] Phon e Number [address] [place] [address] [address] [facility] [place] [address] Laboratory Medicine and Pathology [address] [place] [address] Dr. CHAPPELL Phosphatidylethanol (Peth), whole blood- Sent Out Lab (12/15/2021 5:39 PM CDT) Only the most recent of3 resultswithin the time period is included. Component Value Ref Range Test Analysis Performed Pathologis t Method Time At Signature Phosphatidylethanol NEGATIVE NEGATIVE 12/26/2021 MTI (PEth) ng/mL 1:01 PM CDT Comment: Analyzed compound: PEth 16:0/18:1. ? 4-yzngodvwk-7-xalusb-bo-erzdbfq-3 -phosphoethanol. ? Analysis performed by Liquid Chromatogra phcarlota with ? Tandem Mass Spectrometry (LC/MS/MS). ? Detection limit: 20 ng/mL ? PEth levels in excess of 20 ng/mL are co nsidered evidence of moderate to heavy ethanol consumption . ??However, ? the Center for Substance Abuse Treatment (CSAT) advises caution in interpretation and use of bio markers alone to assess alcohol use. ??Results should be interpreted in the context of all available clinical and behavioral information. ? Reference: ??Substance Abuse and Mental Health Services ? Administration (2012). The Role of Biomarkers in the ? Treatment of Alcohol Use Disorder s, 2012 Revision. ? Advisory, Volume 11, Issue 2. This test was developed and its performa nce characteristics determined by [facility]. It has not been c leared or approved by the Food and Drug Administration. Specimen Anatomical Collection Method Collection Time Receive d Time (Source) Location / / Volume Laterality Blood (Blood, 12/15/2021 5:39 PM 12/17/19 22 8:26 Venous) CDT AM CDT Adeline Frazier M.D., Ph.D. LAB BLOOD NON ADD-ON Performing Organization Address City/State/ZIP Code Phon e Number [employer], [employer]. [address] [place] [address] 2 [employer] [place], [place] [id number] [place] [address] Paracentesis (12/04/2021 9:57 AM CDT) Narrative Blanquita Dawn M.D. - 12/04/2021 9:57 AM CDT Blanquita Dawn M.D. ? 12/04/2021 ??9:59 AM Paracentesis Date/Time: 12/04/2021 9:57 AM Performed by: Blanquita Dawn M.D. Authorized by: Abdullahi Zuniga M.D. PROCEDURE DETAILS Equipment: paracentesis tray Needle gauge: 20 Ultrasound image guidance used to locali ze target, identify at risk structures, and dynamically used to dire ct therapy to the target. Image(s) acquired and saved. Puncture site: right lower quadrant Fluid removed amount (mL): 3L Fluid appearance: clear CONSENT Consent obtained: verbal Consent given by: patient The benefits, risks and alternatives to the procedure and the potential need for sedation or anesthesia as well as the names, roles, and responsibilities of healthcare team memb ers performing significant interventional tasks were discussed with the patient and/or decision maker. [employer] All relevant documentation and testing w ere reviewed and available. All required blood products, implants, devic es and or special equipment were made available as applicable. Pre-proced ure verification was conducted and the correct site was marked if required. A fire risk assessment was done as applicable. The procedural time-out t o verify correct patient, correct side/site, and procedure was conducted p rior to performing the procedure and confirmed in a procedural pause. PRE-PROCEDURE DETAILS Procedure purpose: therapeutic Indications: ascites Appropriate hand hygiene, gown, cap, mas k, protective eyewear, sterile gloves, skin preparation, sterile drape, and strict aseptic technique were utilized as applicable for the procedure .: yes ?? Skin preparation: chlorhexidine SEDATION / ANESTHESIA Anesthesia method: none POST-PROCEDURE DETAILS Albumin replacement: none Procedure completed successfully: yes ?? Complications: no apparent complications ?? Abdullahi Zuniga M.D. PROCEDURE/MINOR SURGICAL ORDERABLES Patient Status (12/04/2021 7:30 AM CDT) P athologist Signature FIO2 0.21 0.21=AIR 12/04/2021 STMA 7:34 AM CDT Spont. 18 12/04/2021 STMA breaths/min 7:34 AM CDT Specimen Anatomical Collection Method Collection Time Receive d Time (Source) Location / / Volume Laterality Blood 12/04/2021 7:30 AM 7:34 CDT AM CDT Sree Goodman M.D., M.A. LAB BLOOD NON ADD-ON Performing Organization Address City/State/ZIP Code Phon e Number [facility] - [address] [place], [place] [address] [facility] [place] [address] [facility] [address] (ABNORMAL) Prothrombin Time (PT) (12/04/2021 7:30 AM CDT)Only the most recent of 6 resultswithin the time period is included. [facility] Method Time Signature Prothrombin 31.1 (H) 9.4 - 12.5 12/04/2021 STMA Time, P sec 7:44 AM CDT INR 2.8 0.9 - 1.1 12/04/2021 STMA 7:44 AM CDT Comment: ----ADDITIONAL INFORMATION---- Standard intensity warfarin therapeutic range: 2.0 to 3.0 ?? High intensity warfarin therapeutic rang e: 2.5 to 3.5 Specimen Anatomical Collection Method Collection Time Receive d Time (Source) Location / / Volume Laterality Blood (Blood, 12/04/2021 7:30 AM 12/05/19 7:34 Venous) CDT AM CDT Sree Goodman M.D., M.A. LAB BLOOD ADD-ON Performing Organization Address City/State/ZIP Code Phon e Number [address] [address] [place] [address] [facility] [address] [facility] (ABNORMAL) Blood Gas with Coox, Venous (12/04/2021 7:30 AM CDT) [facility] Method Time Signature Venous pO2 36 Not applicable 12/04/2021 STMA mm Hg 7:38 AM CDT Venous pCO2 33 (L) 41 - 51 mm Hg 12/04/2021 STMA 7:38 AM CDT Venous pH 7.42 7.32 - 7.43 pH 12/04/2021 STMA 7:38 AM CDT Venous Base -3 Not applicable 12/04/2021 STMA Excess mmol/L 7:38 AM CDT HCO3 21 Not applicable 12/04/2021 STMA mmol/L 7:38 AM CDT Hemoglobin, B 8.2 (L) 11.6 - 15.0 12/04/2021 STMA g/dL 7:38 AM CDT O2Hb 59.5 Not applicable 12/04/2021 STMA % 7:38 AM CDT COHb 3.0 (H) <3.0 % 12/04/2021 STMA 7:38 AM CDT MetHb <1.0 <1.5 % 12/04/2021 STMA 7:38 AM CDT CtO2 6.9 Not applicable 12/04/2021 [facility] vol % 7:38 AM CDT Venous Sample Venipunct 12/04/2021 [facility] Site 7:38 AM CDT Specimen Anatomical Collection Method Collection Time Receive d Time (Source) Location / / Volume Laterality Blood (Blood, 12/04/2021 7:30 AM 12/05/19 22 7:34 Venous) CDT AM CDT Sree Goodman M.D., M.A. LAB BLOOD NON ADD-ON Performing Organization Address City/State/ZIP Code Phon e Number [facility] - [address] [place], [place] [address] [place] [address] [facility] 200 [facility] (ABNORMAL) Bilirubin, Total (12/02/2021 4:14 PM CDT) P athologist Signature Bilirubin, 11.8 (H) <=1.2 12/02/2021 OWAT Total, P mg/dL 6:46 PM CDT Specimen Anatomical Collection Method Collection Time Receive d Time (Source) Location / / Volume Laterality Blood (Blood, 12/02/2021 4:14 PM 12/03/19 22 6:28 Venous) CDT PM CDT Matthew Santillan M.D. LAB BLOOD ADD-ON Performing Organization Address City/[facility]/ZIP Code Phon e Number [facility] [address] [place] [address] [place] [address] System in [place] [address] [place] [address] (ABNORMAL) Microscopic Automated (11/26/2021 6:59 AM CDT) Analysis Performed At Patho logist Time Signature Microscopy Abnormal 11/26/2021 DTL 7:48 AM CDT RBC 3-10 (A) <3 /hpf 11/26/2021 DTL 7:48 AM CDT Dysmorphic RBC <25 <25 % 11/26/2021 DTL 7:48 AM CDT WBC 4-10 /hpf 11/26/2021 DTL 7:48 AM CDT Comment: ----REFERENCE VALUE---- 1-3 ??(Males) 1-10 (Females) Squamous Epithelial Cells, U 1-3 /hpf 11/26/2021 7:48 AM CDT DTL Specimen Anatomical Collection Method Collection Time Receive d Time (Source) Location / / Volume Laterality Urine 11/26/2021 6:59 AM 2 7:15 CDT AM CDT Gerard Andino M.D., M.S. LAB URINE ORDERABLES Performing Organization Address City/State/ZIP Code Phon e Number [facility] - [address] [place], [place] [address] [facility] pH, Urine (11/26/2021 6:59 AM CDT) P athologist Signature pH, U 6.3 4.5 - 8.0 11/26/2021 8:06 DTL AM CDT Specimen Anatomical Collection Method Collection Time Receive d Time (Source) Location / / Volume Laterality Urine 11/26/2021 6:59 AM 2 7:15 CDT AM CDT Gerard Andino M.D., M.S. LAB URINE ORDERABLES Performing Organization Address City/State/ZIP Code Phon e Number [facility] - [address] [place], [place] [address] [place] [phone] Osmolality, Urine (11/26/2021 6:59 AM CDT) P athologist Signature Osmolality, U 325 150 - 1150 11/26/2021 DTL mOsm/kg 8:06 AM CDT Specimen Anatomical Collection Method Collection Time Receive d Time (Source) Location / / Volume Laterality Urine 11/26/2021 6:59 AM 2 7:15 CDT AM CDT Gerard Andino M.D., M.S. LAB URINE ORDERABLES Performing Organization Address City/State/ZIP Code Phon e Number [facility] - [address] [place], [place] [address] [facility] [place] [address] [facility] [address] Abdomen Pelvis with IV Contrast (11/25/2021 10:27 AM CDT) Anatomical Region Laterality Modality Abdomen, Pelvis, Abdominal RST LOS, N/A Comp uted Tomography, Computed Abdominal ARZ LOS, Abdominal FLA LOS José Miguel ography Specimen (Source) Anatomical Collection Method Collection Time Re ceived Time Location / / Volume Laterality 11/25/2021 10:29 AM CDT Impressions 11/25/2021 11:36 AM CDT 1. New large volume ascites in the abdomen and pelvis. 2. Hepatic cirrhosis with sequela of por meagan venous hypertension. 3. Normal caliber bowel. Narrative 11/25/2021 11:36 AM CDT EXAM: ??CT ABDOMEN PELVIS WITH IV CONTRAST COMPARISON: ??CT abdomen 09/22/[address] abdomen and pelvis 03/21/2021. FINDINGS: ?? Since 09/22/2021, the volume of ascites has substantially increased and is now large. Hounsfield units of the ascites measure simple at 8 H.U. Heterogeneous hepatic parenchyma with lo bulated contour consistent with history of cirrhosis. Splenomegaly with spleen length measurin g 15.4 cm. Upper abdominal varices. Centrally patent portal vein. Patent splenic vein and SMV. Incre ased mesenteric edema. Persistent sludge or stones in the gallb ladder. Pancreatic parenchymal calcifications suggestive of chronic pancreatitis. Adrenal glands and both kidneys are negative. Normal caliber small bowel. Some high attenuation material in the jejunum (series 3 image 70) is favored to be due to ingested material. IUD in place. Mild body wall edema. The osseous struct ures are unremarkable. Small right pleural effusion with promin ent atelectasis in the right lower lobe. Mild atelectasis left lung base. Procedure Note Juan Luis Dickson M.D. - 11/25/2021Form atting of this note might be different from the original. EXAM: CT ABDOMEN PELVIS WITH IV CONTRAST COMPARISON: CT abdomen 09/22/[address] abdomen and pelvis 03/21/2021. FINDINGS: Since 09/22/2021, the volume of ascites has substantially increased and is now large. Hounsfield units of the ascites measure simple at 8 H.U. Heterogeneous hepatic parenchyma with lo bulated contour consistent with history of cirrhosis. Splenomegaly with spleen length measurin g 15.4 cm. Upper abdominal varices. Centrally patent portal vein. Patent splenic vein and SMV. Incre ased mesenteric edema. Persistent sludge or stones in the gallb ladder. Pancreatic parenchymal calcifications suggestive of chronic pancreatitis. Adrenal glands and both kidneys are negative. Normal caliber small bowel. Some high attenuation material in the jejunum (series 3 image 70) is favored to be due to ingested material. IUD in place. Mild body wall edema. The osseous struct ures are unremarkable. Small right pleural effusion with promin ent atelectasis in the right lower lobe. Mild atelectasis left lung base. IMPRESSION: 1. New large volume ascites in the abdom en and pelvis. 2. Hepatic cirrhosis with sequela of por meagan venous hypertension. 3. Normal caliber bowel. Jovanna Bergeron M.D. IMG CT PROCEDURES Phosphorus Inorganic (11/25/2021 6:55 AM CDT)Only the most recent of8 results within the time period is included. athologist Signature Phosphorus 3.2 2.5 - 4.5 11/25/2021 DTL (Inorganic), S mg/dL 7:54 AM CDT Specimen Anatomical Collection Method Collection Time Receive d Time (Source) Location / / Volume Laterality Blood (Blood, 11/25/2021 6:55 AM 11/26/19 22 7:33 Venous) CDT AM CDT Dina Campa M.D. LAB BLOOD ADD-ON Performing Organization Address City/[facility]/ZIP Code Phon e Number [facility] - [address] [place] [address] [facility] [address] [facility] Magnesium (11/25/2021 6:55 AM CDT)Only the most recent of7 resultswithin the time period is included. athologist Signature Magnesium, S 1.7 1.7 - 2.3 11/25/2021 DTL mg/dL 7:54 AM CDT Specimen Anatomical Collection Method Collection Time Receive d Time (Source) Location / / Volume Laterality Blood (Blood, 11/25/2021 6:55 AM 11/26/19 22 7:33 Venous) CDT AM CDT Dina Campa M.D. LAB BLOOD ADD-ON Performing Organization Address City/[facility]/ZIP Code Phon e Number [facility] - [address] [place], [place] [address] [facility] [place] [address] [facility] [address] DX Abdomen Portable Anterior Posterior 1 View (11/25/2021 6:06 AM CDT)Only the most recent of4 resultswithin the time period is included. Anatomical Region Laterality Modality Abdomen, Abdominal RST LOS, Abdominal ARZ LOS, N/A Digital Radiography Abdominal FLA LOS Specimen (Source) Anatomical Collection Method Collection Time Re ceived Time Location / / Volume Laterality 11/25/2021 6:08 AM CDT Impressions 11/25/2021 6:15 AM CDT Since 11/19/2021, the feeding tube has been removed. Increased mild gaseous distention of small bowel loops in the central abdo men. Gas is present throughout the colon to the level of the rectum. No definite free air, noting dec reased sensitivity for small amounts of free intraperitoneal air on supine radiographs. IUD. Narrative 11/25/2021 6:15 AM CDT EXAM: ??DX ABDOMEN PORTABLE ANTERIOR POSTERIOR 1 VIEW Procedure Note Sonia Chadwick M.D. - 11/25/2021Forma tting of this note might be different from the original. EXAM: DX ABDOMEN PORTABLE ANTERIOR POSTE RIOR 1 VIEW IMPRESSION: Since 11/19/2021, the feeding tube has b een removed. Increased mild gaseous distention of small bowel loops in the central abdo men. Gas is present throughout the colon to the level of the rectum. No definite free air, noting dec reased sensitivity for small amounts of free intraperitoneal air on supine radiographs. IUD. Harish PERALES DIAGNOSTIC IMAGING PROCE DURES US Paracentesis with Imaging Guidance (11/24/2021 1:28 PM CDT)Only the most recent of3 resultswithin the time period is included. Anatomical Region Laterality Modality Abdomen, Ultrasound RST LOS, Ultrasound ARZ LOS, Procedure F LA N/A Ultrasound LOS, Abdominal FLA LOS, Procedural Specimen (Source) Anatomical Collection Method Collection Time Re ceived Time Location / / Volume Laterality 11/24/2021 1:30 PM CDT Impressions 11/24/2021 1:32 PM CDT Ultrasound-guided paracentesis. NR Narrative 11/24/2021 1:32 PM CDT EXAM: US PARACENTESIS WITH IMAGING GUIDANCE PRE-PROCEDURE: Patient seen and evaluate d. Allergies, pertinent medications, and history reviewed. Discussed risks, benefits, alternatives for procedure, and obtained informed consent. Patient understands information and questions an swered. Immediately prior to starting the procedure, in the presence of the assisting personnel, pro cedural pause was conducted to verify correct patient identity and verification of procedure t o be performed, and as applicable, correct side and site, correct patient position, availability o f implants, special equipment, or special requirements, and all image and specimen identification da ta. The roles and responsibilities of care team members, residents, and fellows were discussed. TECHNIQUE: Sterile. 1% lidocaine for loc al anesthesia. Ultrasound guidance. Location: Right mid abdominal peritoneal space. Needle size: 5 Fr centesis catheter. Volume aspirated: 4.6 L of straw-colored fluid aspirated for therapeutic purposes Complication: None. Blood loss: None. Purpose: Therapeutic only. PATIENT INSTRUCTIONS: Patient may be dis missed from the radiology department when dismissal criteria met. POST-PROCEDURE DIAGNOSIS: Ascites. Any post-procedural intravenous albumin replacement was deferred to the inpatient service (this was discussed with the inpatient service). Procedure Note Bernardo Angulo M.D. - 11/24/2021Forma tting of this note might be different from the original. EXAM: US PARACENTESIS WITH IMAGING KYLER JACKSON PRE-PROCEDURE: Patient seen and evaluate d. Allergies, pertinent medications, and history reviewed. Discussed risks, benefits, alternatives for procedure, and obtained informed consent. Patient understands information and questions an swered. Immediately prior to starting the procedure, in the presence of the assisting personnel, pro cedural pause was conducted to verify correct patient identity and verification of procedure t o be performed, and as applicable, correct side and site, correct patient position, availability o f implants, special equipment, or special requirements, and all image and specimen identification da ta. The roles and responsibilities of care team members, residents, and fellows were discussed. TECHNIQUE: Sterile. 1% lidocaine for loc al anesthesia. Ultrasound guidance. Location: Right mid abdominal peritoneal space. Needle size: 5 Fr centesis catheter. Volume aspirated: 4.6 L of straw-colored fluid aspirated for therapeutic purposes Complication: None. Blood loss: None. Purpose: Therapeutic only. PATIENT INSTRUCTIONS: Patient may be dis missed from the radiology department when dismissal criteria met. POST-PROCEDURE DIAGNOSIS: Ascites. Any post-procedural intravenous albumin replacement was deferred to the inpatient service (this was discussed with the inpatient service). IMPRESSION: Ultrasound-guided paracentesis. NR Dina Campa M.D. IMG US PROCEDURES (ABNORMAL) CBC without Differential (11/23/2021 6:01 AM CDT)Only the most recent of6 resultswithin the time period is included. [facility] gist Method Time Signature Hemoglobin 7.3 (L) 11.6 - 11/23/2021 DHPM 15.0 g/dL 8:56 AM CDT Hematocrit 21.5 (L) 35.5 - 11/23/2021 DHPM 44.9 % 8:56 AM CDT Erythrocytes 1.89 (L) 3.92 - 11/23/2021 DHPM 5.13 8:56 AM CDT x10(12)/L MCV 113.8 (H) 78.2 - 11/23/2021 DHPM 97.9 fL 8:56 AM CDT RBC Distrib Width 22.5 (H) 12.2 - 11/23/2021 DHPM 16.1 % 8:56 AM CDT Platelet Count 52 (L) 157 - 371 11/23/2021 DHPM x10(9)/L 8:56 AM CDT Leukocytes 7.3 3.4 - 9.6 11/23/2021 DHPM x10(9)/L 8:56 AM CDT Specimen Anatomical Collection Method Collection Time Receive d Time (Source) Location / / Volume Laterality Blood (Blood, 11/23/2021 6:01 AM 11/24/19 7:32 Venous) CDT AM CDT Gerard Andino M.D., MSumaS. LAB BLOOD ADD-ON Performing Organization Address City/State/ZIP Code Phon e Number [facility] - [address] [place], [place] [address] [place] [address] [facility] [address] (ABNORMAL) SPSMA Result (11/21/2021 11:25 AM CDT)Only the most recent of3 resultswithin the time period is included. Analysis Performed At Patho logist Time Signature Neutrophilic Segs 84 (H) 50 - 75 % 11/21/2021 DHPM and Bands 1:07 PM CDT Lymphocytes 11 (L) 18 - 42 % 11/21/2021 DHPM 1:07 PM CDT Monocytes 5 2 - 11 % 11/21/2021 PM 1:07 PM CDT Manual Absolute 6.30 1.56 - 11/21/2021 [facility] Neutrophil Count 6.45 1:07 PM CDT x10(9)/L Comment: ----ADDITIONAL INFORMATION---- The manual absolute neutrophil count is derived from a manual differential count and therefore is not exactly comparable to the automated absolute armida trophil count. Interpretation SeeComment 11/21/2021 1:07 PM CDT D HPM Comment: No morphologic features of hemolysis are seen. Round macrocytes and-or target cells are present; consider liver disease or drug effect. Reviewed by: Tech 11/21/2021 1:07 PM CDT [facility] Specimen Anatomical Collection Method Collection Time Receive d Time (Source) Location / / Volume Laterality Blood (Blood, 11/21/2021 11:25 11/21/2021 Venous) AM CDT 12:03 PM CDT Shannan Rand M.D. LAB BLOOD ADD-ON Performing Organization Address City/[facility]/ZIP Code Phon e Number [facility] - [address] [place], [place] [address] [place] [address] [facility] [address] Pernicious Anemia [place] (11/21/2021 11:25 AM CDT) P athologist Signature Vitamin B12 621 180 - 914 11/21/2021 [facility] Assay, S ng/L 6:21 PM CDT Specimen Anatomical Collection Method Collection Time Receive d Time (Source) Location / / Volume Laterality Blood (Blood, 11/21/2021 11:25 11/21/2021 4:05 Venous) AM CDT PM CDT Dina Campa M.D. LAB BLOOD NON ADD-ON Performing Organization Address City/[facility]/ZIP Code Phon e Number [facility] [address] [place], [place] [address] [facility] [place] [address] Laboratory Medicine and Pathology [address] [place] (ABNORMAL) Cystatin C with Estimated GFR, S (11/21/2021 11:25 AM CDT) P athologist Signature eGFR by 60 (L) >60 11/21/2021 DTL Cystatin C mL/min/BSA 12:47 PM CDT Comment: Estimated GFR calculated using the CKD-E PI Cystatin C (2012) equation. ----ADDITIONAL INFORMATION---- Cystatin C-based eGFR may differ substantially from creatinine- based eGFR in patients with abnormal muscle mass or acutely changing renal function. ??Please interpret together with relevant clinical features. On 09/26/2020 the cystatin C assay method changed. Cystatin C eGFR results > 50 ml/min/1.73m2 are approximately 10% lower with the new assay. Cystatin C 1.26 (H) 0.63 - 1.03 mg/L 11/21/2021 12:47 PM CD T DTL Specimen Anatomical Collection Method Collection Time Receive d Time (Source) Location / / Volume Laterality Blood (Blood, 11/21/2021 11:25 11/21/2021 Venous) AM CDT 12:22 PM CDT Dina Campa M.D. LAB BLOOD ADD-ON Performing Organization Address City/State/ZIP Code Phon e Number [facility] - [address] [place], [place] [address] [facility] [place] [address] [facility] [address] (ABNORMAL) Comprehensive Metabolic Panel (11/21/2021 11:25 AM CDT)Only the most recent of4 resultswithin the time period is included. Analysis Performed At Patho logist Time Signature Potassium, S 3.7 3.6 - 5.2 11/21/2021 DTL mmol/L 12:47 PM CDT Sodium, S 136 135 - 145 11/21/2021 DTL mmol/L 12:47 PM CDT Chloride, S 106 98 - 107 11/21/2021 DTL mmol/L 12:48 PM CDT Bicarbonate, S 20 (L) 22 - 29 11/21/2021 DTL mmol/L 12:47 PM CDT Anion Gap 10 7 - 15 11/21/2021 DTL 12:48 PM CDT BUN (Blood Urea 10 6 - 21 11/21/2021 DTL Nitrogen), S mg/dL 12:48 PM CDT Creatinine 0.44 (L) 0.59 - 11/21/2021 DTL 1.04 mg/dL 2:53 PM CDT eGFR-Non >90 >=60 11/21/2021 DTL Black/ mL/min/BSA 2:53 PM CDT English Comment: ----ADDITIONAL INFORMATION---- Estimated GFR calculated using the 2009 CKD_EPI creatinine equation. eGFR-Black/ >90 >=60 mL/min/BSA 2021 2:53 PM CDT DTL Comment: ----ADDITIONAL INFORMATION---- Estimated GFR calculated using the 2009 CKD_EPI creatinine equation. Calcium, Total, S 8.2 (L) 8.6 - 10.0 mg/dL 11/21/2021 12:4 8 PM DTL CDT Glucose, S 131 70 - 140 mg/dL 11/21/2021 12:47 PM DTL CDT Protein, Total, S 5.0 (L) 6.3 - 7.9 g/dL 11/21/2021 12:47 PM DTL CDT Albumin, S 3.4 (L) 3.5 - 5.0 g/dL 11/21/2021 12:48 PM DTL CDT Aspartate Aminotransferase 59 (H) 8 - 43 U/L 11/21/2021 1 2:48 PM DTL (AST), S CDT Alkaline Phosphatase, S 200 (H) 35 - 104 U/L 11/21/2021 12 :47 PM DTL CDT Alanine Aminotransferase 30 7 - 45 U/L 11/21/2021 12: 48 PM DTL (ALT), S CDT Bilirubin, Total, S 13.5 (H) <=1.2 mg/dL 11/21/2021 12:47 P M DTL CDT Specimen Anatomical Collection Method Collection Time Receive d Time (Source) Location / / Volume Laterality Blood (Blood, 11/21/2021 11:25 11/21/2021 Venous) AM CDT 12:22 PM CDT Dina Campa M.D. LAB BLOOD ADD-ON Performing Organization Address City/State/ZIP Code Phon e Number [facility] - [address] [place], [place] [address] [place] [address] [facility] [address] [facility] Copper, 24 Hour, Urine (11/21/2021 11:00 AM CDT) athologist Signature Copper, 24 Hr, U 19 9 - 71 11/24/2021 [facility] mcg/24 h 10:42 AM CDT Collection 24 h 11/24/2021 [facility] Duration 10:42 AM CDT Volume 815 mL 11/24/2021 [facility] 10:42 AM CDT Comment: ----ADDITIONAL INFORMATION---- This test was developed and its performa nce characteristics determined by [facility] in a manner consistent with CLIA requirements. This test has not been cleared or approved by the U.[place] d and Drug Administration. Specimen Anatomical Collection Method Collection Time Receive d Time (Source) Location / / Volume Laterality Urine (Urine, 24 11/21/2021 11:00 022 3:36 Hours) AM CDT PM CDT Shannan Rand M.D. LAB URINE ORDERABLES Performing Organization Address City/State/ZIP Code Phon e Number [facility] [address] [place], [place] [address] [facility] [place] [address] Laboratory Medicine and Pathology [address] [place] (ABNORMAL) Ceruloplasmin (11/20/2021 6:38 AM CDT) athologist Signature Ceruloplasmin, 15.3 (L) 20.0 - 11/20/2021 DTL S 51.0 mg/dL 9:42 AM CDT Comment: A low concentration of ceruloplasmin in serum can be found in patients with Bhavin disease, copper deficiency, Menkes disease, and hereditary aceruloplasminem ia. ??Conditions with severe protein loss or liver failur e are also associated with low ceruloplasmin levels . ??Furthermore, reduced ceruloplasmin concentrations can be observed in carriers for Bhavin disease. ??If the cl inical suspicion for Bhavin disease is high in this patient, consider further testing including but not limited to uri ne copper, serum copper, and Bhavin disease full gene deandre lysis. ??Please contact the laboratory at or the on-line test catalog at [employer] for m ore information. Specimen Anatomical Collection Method Collection Time Receive d Time (Source) Location / / Volume Laterality Blood (Blood, 11/20/2021 6:38 AM 11/21/19 8:33 Venous) CDT AM CDT Gerard Andino M.D., M.S. LAB BLOOD ADD-ON Performing Organization Address City/[facility] Phon e Number [facility] - [address] Sedimentation Rate (11/19/2021 2:55 PM CDT) Analysis Performed At Patho logist Time Signature Sedimentation 2 2 - 20 11/19/2021 DTL Rate, B mm/h 4:02 PM CDT Specimen Anatomical Collection Method Collection Time Receive d Time (Source) Location / / Volume Laterality Blood (Blood, 11/19/2021 2:55 PM 11/20/19 3:17 Venous) CDT PM CDT Gerard Andino M.D., M.S. LAB BLOOD ADD-ON Performing Organization Address City/[facility] Phon e Number [address] Type and Screen (with reflex Antibody ID) (11/19/2021 2:55 PM CDT)Only the most recent of3 resultswithin the time period is included. Patholo gist Method Time Signature ABORh B Pos Not 11/19/2021 STRM applicable 3:49 PM CDT Antibody Negative Negative 11/19/2021 STR[facility] Screen 4:03 PM CDT Type & Screen 11/22/2021 11/19/2021 STRM Expiration 23:59 3:49 PM CDT Testing Jcarlos DEFAULT 11/19/2021 STRM Location 3:05 PM CDT Specimen Anatomical Collection Method Collection Time Receive d Time (Source) Location / / Volume Laterality Blood (Blood, 11/19/2021 2:55 PM 11/20/19 22 3:05 Venous) CDT PM CDT Gerard Andino M.D., M.S. LAB BLOOD BANK TEST ORDERABL ES Performing Organization Address City/[facility]/ZIP Code Phon e Number [facility] - [address] [place], [place] [address] [facility] [place] [address] [facility] [address] CRP (C-Reactive Protein) (11/19/2021 2:55 PM CDT)Only the most recent of3 resultswithin the time period is included. P athologist Signature C-Reactive 6.6 <=8.0 mg/L 11/19/2021 DTL Protein (CRP), 3:54 PM CDT S Specimen Anatomical Collection Method Collection Time Receive d Time (Source) Location / / Volume Laterality Blood (Blood, 11/19/2021 2:55 PM 11/20/19 22 3:29 Venous) CDT PM CDT Gerard Andino M.D., M.S. LAB BLOOD ADD-ON Performing Organization Address City/[facility]/ZIP Code Phon e Number [facility] - [address] [place], [place] [address] [facility] [place] [address] [facility] [address] [facility] Bacteria / Raudel Culture, Blood #2 (11/19/2021 12:59 PM CDT)Only the most recent of4 resultswithin the time period is included. Patholo gist Method Time Signature Bacteria/Adriana No growth 11/24/2021 DTL da Culture, after 5 2:02 PM CDT Blood days of incubation. Specimen (Source) Anatomical Collection Method Collection Time Re ceived Time Location / / Volume Laterality Blood (Blood, 11/19/2021 12:59 11/19/2021 1:49 Peripheral Draw) PM CDT PM CDT Comment: Specimen Source Site: Blood Jovanna Bergeron M.D. LAB MICROBIOLOGY - GENERAL O RDERABLES Performing Organization Address City/[facility]/ZIP Code Phon e Number [facility] - [address] [place], [place] [address] [facility] [place] [address] [facility] [address] [facility] Bacterial Culture, Aerobic + Susc (11/18/2021 3:29 PM CDT)Only the most recent of2 resultswithin the time period is included. [facility] Method Time Signature Bacterial No growth 11/23/2021 DTL Culture, after 5 7:47 AM CDT Aerobic + Susc days of incubation. Specimen (Source) Anatomical Collection Method Collection Time Re ceived Time Location / / Volume Laterality Peritoneal Fluid 11/18/2021 3:29 11/19/19 22 5:38 PM CDT PM CDT Narrative [facility] - [facility] - 11/23/2021 7:47 AM CDT Bacterial Culture: Received Bactec aerob ic and Bactec anaerobic bottles Gerard Andino M.D. M.S. LAB MICROBIOLOGY - GENERAL O RDERABLES Performing Organization Address City/State/[facility] Code Phon e Number [facility] - [address] [place] [address] [facility] [place] [address] [facility] 200 [facility] Cell Count and Differential, Body Fluid (11/18/2021 3:29 PM CDT)Only the most recent of2 resultswithin the time period is included. [facility] Method Time Signature Fluid Type Peritoneal- 11/18/2021 [facility] Paracentesi 8:18 PM CDT s Gross Serous 11/18/2021 [facility] Appearance 8:18 PM CDT Total Nucleated <52 /mcL 11/18/2021 [facility] Cells 8:18 PM CDT Comment: ----REFERENCE VALUE---- Synovial: <150 /mcL Peritoneal: <500 /mcL Pleural: <500 /mcL Pericardial: <500 /mcL ----ADDITIONAL INFORMATION---- This test has been modified from the man ufacturer's instructions. Its performance characteri stics were determined by [facility] in a manner co nsistent with CLIA requirements. This test has not bee n cleared or approved by the U.S. Food and Drug Admin istration. Neutrophils 2 % 11/18/2021 8:19 PM CDT DH[facility] Comment: ----REFERENCE VALUE---- Synovial: <25% Peritoneal: <25% Pleural: <25% Pericardial: <25% Lymphocytes 79 Synovial <75% % 11/18/2021 8:19 PM DHP M CDT Monocytes/Macrophages 19 Synovial <70% % 11/18/2021 8 :19 PM [facility] CDT Comment No blasts or 11/19/2021 8:23 AM [facility] malignant cells CDT seen. Reviewed by: Ruth 11/19/2021 8:23 AM [facility] CDT Specimen Anatomical Collection Method Collection Time Receive d Time (Source) Location / / Volume Laterality Fluid 11/18/2021 3:29 PM 4:30 (Peritoneal CDT PM CDT Fluid) Gerard Andino M.D., M.S. LAB BODY FLUIDS AND STOOLS O JOSE Performing Organization Address City/[facility]/ZIP Code Phon e Number [facility] - [address] [place] [address] [facility] [place] [address] [place] [address] [facility] Gram Stain (11/18/2021 3:29 PM CDT)Only the most recent of2 resultswithin the time period is included. [facility] gist Method Time Signature Gram Stain No organisms seen. 11/18/2021 DTL White blood cells present. 10:50 PM CDT Specimen (Source) Anatomical Collection Method Collection Time Re ceived Time Location / / Volume Laterality Peritoneal Fluid 11/18/2021 3:29 11/19/19 5:38 PM CDT PM CDT Narrative [facility] - [facility] - 11/18/2021 10:50 PM CDT Bacterial Culture: Received Bactec aerob ic and Bactec anaerobic bottles Gerard Andino M.D., M.S. LAB MICROBIOLOGY - GENERAL O JOSE Performing Organization Address City/[facility]/ZIP Code Phon e Number [facility] - [address] [place], [place] [address] [facility] [place] [address] [facility] [address] [facility] EEG prolonged (11/17/2021 10:14 AM CDT) Specimen (Source) Anatomical Location Collection Method / Collectio n Time Received Time / Laterality Volume Narrative [facility] - 11/17/2021 2:35 PM CDT EEG MONITORING FINAL REPORT Clinical Interpretation: This is compute r-assisted prolonged video EEG demonstrated: 1. Mild- moderate slowing of the backgro und which is a non specific indicator of diffuse cerebral dysfunctio n 2. Intermittent rhythmic delta activity present diffusely (GRDA) which is a non specific indicator of moderate enc ephalopathy 3. No seizures or clinical events during this recording period. Classification: SPECIAL STUDY - computer -assisted prolonged video EEG. Dysrhythmia 1 - diffuse slowing Recorded no clinical events EKG channel. Report: BACKGROUND: The awake recording revealed 7-8 Hz activity in the posterior head regions. There was intermittent??4- 6 Hz theta activity, which sometimes appears rhythmic (GRDA) or sha rply contoured. INTERICTAL DISCHARGES: None CLINICAL EVENTS: ??During the monitoring session, the patient had no clinical events or seizures. The EKG was unremarkable. ?? Dr. Sam reviewed this study with Dr. Potter and agrees with the results. ?? Isaak Rodriguez M.D. NEUROLOGY ORDERABLES Performing Organization Address City/State/ZIP Code Phon e Number [facility] NA EEG prolonged (11/17/2021 10:14 AM CDT) Specimen (Source) Anatomical Location Collection Method / Collectio n Time Received Time / Laterality Volume Narrative [facility] - 11/17/2021 2:35 PM CDT EEG MONITORING DAILY REPORT BACKGROUND Report: Computer-assisted prolonged vide o EEG monitoring since the beginning of the recording showed the fo llowing. BACKGROUND: ??The awake recording reveal ed 7-8 Hz activity in the posterior head regions. There was intermittent 4-6 Hz theta activity, which sometimes appears rhythmic (GRDA) or sha rply contoured. DISCHARGES AND SEIZURES INTERICTAL DISCHARGES: None CLINICAL EVENTS: ??During the monitoring session, the patient had no clinical events or seizures. INTERPRETATION AND CLINICAL CORRELATE This computer-assisted prolonged video E EG recordin. Mild- moderate slowing of the backgro und which is a non specific indicator of diffuse cerebral dysfunctio n 2. Intermittent rhythmic delta activity present diffusely (GRDA) which is a non specific indicator of moderate enc ephalopathy 3. No seizures or clinical events during this recording period. The EKG was unremarkable. Dr. Sam reviewed this study with Dr. Potter and agrees with the results. Isaak Rodriguez M.D. NEUROLOGY ORDERABLES Performing Organization Address City/State/ZIP Code Phon e Number [facility] NA MR Brain without IV Contrast (11/15/2021 1:07 PM CDT) Anatomical Region Laterality Modality Head, Brain, Neuroradiology RST LOS, Neuroradiology ARZ N/A Magnetic Resonance LOS, Neuroradiology FLA LOS Specimen (Source) Anatomical Collection Method Collection Time Re ceived Time Location / / Volume Laterality 11/15/2021 1:26 PM CDT Impressions 11/15/2021 1:35 PM CDT No acute intracranial abnormality. Narrative 11/15/2021 1:35 PM CDT EXAM: MR BRAIN WITHOUT IV CONTRAST COMPARISON: CT head on 11/02/2021 FINDINGS: Exam limited by metallic artifact appear ing to be centered on patient's back. Exam was ended prior to contrast administration per patient r equest. No restricted diffusion to suggest acute infection. No abnormal signal in the brain parenchyma. No mass effect, midline shift, or hydroceph alus. The paranasal sinuses are clear. Procedure Note David Wilkinson M.D. - 11/15/2021Forma tting of this note might be different from the original. EXAM: MR BRAIN WITHOUT IV CONTRAST COMPARISON: CT head on 11/02/2021 FINDINGS: Exam limited by metallic artifact appear ing to be centered on patient's back. Exam was ended prior to contrast administration per patient r equest. No restricted diffusion to suggest acute infection. No abnormal signal in the brain parenchyma. No mass effect, midline shift, or hydroceph alus. The paranasal sinuses are clear. IMPRESSION: No acute intracranial abnormality. Gerard Andino M.D., M.S. IMG MRI PROCEDURES Drug Screen Urine (11/15/2021 11:15 AM CDT)Only the most recent of2 results within the time period is included. [facility] Method Time Signature Ethanol, Negative NEGATIVE 11/15/2021 DTL Screen U 2:06 PM CDT Amphetamines, Negative NEGATIVE 11/15/2021 DTL U 2:06 PM CDT Barbiturates, Negative NEGATIVE 11/15/2021 DTL Screen, U 2:06 PM CDT Benzodiazepin Presumptive NEGATIVE 11/15/2021 DTL es, Screen, U Positive 2:06 PM CDT Cocaine, Negative NEGATIVE 11/15/2021 DTL Screen, U 2:06 PM CDT Opiates, Negative NEGATIVE 11/15/2021 DTL Screen, U 2:06 PM CDT Phencyclidine Negative NEGATIVE 11/15/2021 DTL , Screen, U 2:06 PM CDT Tetrahydrocan Presumptive NEGATIVE 11/15/2021 DTL nabinol, U Positive 2:37 PM CDT Specimen Anatomical Collection Method Collection Time Receive d Time (Source) Location / / Volume Laterality Urine (Urine, 11/15/2021 11:15 11/15/2021 1:24 Midstream) AM CDT PM CDT Gerard Andino M.D. M.S. LAB URINE ORDERABLES Performing Organization Address [facility] Phon e Number [facility] [address] [place], [place] [address] [place] [id number] [place] [address] (ABNORMAL) Ammonia (11/15/2021 6:14 AM CDT)Only the most recent of2 results within the time period is included. P athologist Signature Ammonia, P 31 (H) <=30 11/15/2021 DTL mcmol/L 7:00 AM CDT Specimen Anatomical Collection Method Collection Time Receive d Time (Source) Location / / Volume Laterality Blood (Blood, 11/15/2021 6:14 AM 11/16/19 6:36 Venous) CDT AM CDT Gerard Andino M.D., M.S. LAB BLOOD NON ADD-ON Performing Organization Address City/[facility] Phon e Number [facility] [address] [place], [place] [address] [place] [address] Potassium (11/14/2021 9:00 PM CDT) P athologist Signature Potassium, S 4.1 3.6 - 5.2 11/14/2021 DTL mmol/L 10:55 PM CDT Specimen Anatomical Collection Method Collection Time Receive d Time (Source) Location / / Volume Laterality Blood (Blood, 11/14/2021 9:00 PM 11/15/19 22 9:46 Venous) CDT PM CDT Gerard Andino M.D., MSumaS. LAB BLOOD ADD-ON Performing Organization Address City/State/ZIP Code Phon e Number [facility] - [address] [place], [place] [address] [facility] [place] [address] [facility] [address] [facility] SARS Coronavirus 2, Antigen, Rapid, V Asymptomatic (11/13/2021 9:45 AM CDT) [facility] Method Time Signature SARS CoV-2, Undetected Undetected 11/13/2021 [facility] Antigen, 10:28 AM CDT Rapid, V Comment: SARS-CoV-2 antigen absent. This result d oes not rule out COVID-19 in the patient, as the sensitivity of the test depends on the timing of the specimen collection and the quality of t he specimen. Patients with persistent COVID-specific symptoms or wi th a high suspicion for COVID-19 should receive a PCR or other nucleic ac id amplification test. ----ADDITIONAL INFORMATION---- This SARS-CoV-2 Ag Test was performed us ing the SARS-CoV-2 Ag Test from [employer], which has received Emergency U se Authorization (EUA) by the U.S. Food and Drug Administration. Fact sheets for this Emergency Use Autho rization (EUA) assay can be found at the following links: For Healthcare Providers: https://www.[employer]/assets/images/n ew/pdf/deq-mzw-hbdm-rcvwo-qtmdcpwz-c bks-uqt-8-ag-test.pdf?v=4 For Patients: https://www.[employer]/assets/images/n ew/pdf/yey-ekynjls-oder-sheet-lumira tl-thmt-yft-6-zilwgbe-nlpl.pdf?v=5 SARS CoV-2, Antigen, Rapid, Swab, Nasopharynx 10/31 9:54 AM CDT [facility] Source Specimen Anatomical Collection Method Collection Time Receive d Time (Source) Location / / Volume Laterality Varies 11/13/2021 9:45 AM 9:54 (Nasopharynx) CDT AM CDT Gerard Andnio M.D., M.S. LAB MICROBIOLOGY - GENERAL O RDERABLES Performing Organization Address City/State/ZIP Code Phon e Number [facility] - [address] [place], [place] [address] [facility] [place] [address] [facility] [address] Head without IV Contrast (11/12/2021 3:52 AM CDT) Anatomical Region Laterality Modality Head, Neuroradiology RST LOS, N/A Computed T omography, Computed Neuroradiology ARZ LOS, Neuroradiology T omography FLA LOS Specimen (Source) Anatomical Collection Method Collection Time Re ceived Time Location / / Volume Laterality 11/12/2021 3:56 AM CDT Impressions 11/12/2021 7:10 AM CDT No acute intracranial abnormality. Narrative 11/12/2021 7:10 AM CDT EXAM: CT HEAD WITHOUT IV CONTRAST COMPARISON: Compared to [facility] head CT fro 03/21/2021. FINDINGS: Beam hardening and streak candace fact from the patient's left earring partially limits evaluation of the left temporal lobe and left anterior middle cranial fossa. No intracranial hemorrhage, mass effect, midline shift, or evidence of acute territorial infarct. No extra-axial fluid collections or hydroce phalus. The basilar cisterns are patent. Normal aguilar-white matter differentiation. The paranasal si nuses and mastoid air cells are well aerated. Presumed cerumen in the right external auditory c anal. Scattered dental caries. Procedure Note Moe Lewis M.D. - 11/12/2021For matting of this note might be different from the original. EXAM: CT HEAD WITHOUT IV CONTRAST COMPARISON: Compared to [facility] head CT fro 03/21/2021. FINDINGS: Beam hardening and streak candace fact from the patient's left earring partially limits evaluation of the left temporal lobe and left anterior middle cranial fossa. No intracranial hemorrhage, mass effect, midline shift, or evidence of acute territorial infarct. No extra-axial fluid collections or hydroce phalus. The basilar cisterns are patent. Normal aguilar-white matter differentiation. The paranasal si nuses and mastoid air cells are well aerated. Presumed cerumen in the right external auditory c anal. Scattered dental caries. IMPRESSION: No acute intracranial abnormality. Rosaura Sevilla M.D., M.P.H. IMG CT PROCEDURES (ABNORMAL) SARS Coronavirus 2, PCR Rapid, V Symptomatic (11/12/2021 3:44 AM CDT) [facility] Method Time Signature SARS CoV-2, Detected (A) Undetected 11/12/2021 [facility] PCR, Rapid, V 4:20 AM CDT Comment: ----ADDITIONAL INFORMATION---- This RT-PCR test was performed using the Daniel SARS-CoV-2 and Influenza A/B Reagent assay from [employer], which has received Emergency Use Authori zation(EUA) by the U.S. Food and Drug Administration . Fact sheets for this Emergency Use Autho rization (EUA) assay can be found at the following link s: For Healthcare Providers: https://www.fda.gov/media/361866/downloa d For Patients: https://www.fda.gov/media/717897/downloa d SARS Coronavirus 2, Source, Rapid Swab, Nasopharynx 11/12/2021 3:48 AM CDT [facility] Specimen Anatomical Collection Method Collection Time Receive d Time (Source) Location / / Volume Laterality Varies 11/12/2021 3:44 AM 3:48 (Nasopharynx) CDT AM CDT Rosaura Sevilla M.D., M.P.H. LAB MICROBIOLOGY - GENERA L ORDERABLES Performing Organization Address City/State/[facility] Code Phon e Number [facility] - [address] [place], [place] [address] [facility] [place] [address] [facility] [address] Peripheral Venous Access (11/12/2021 1:58 AM CDT) Narrative Titi Oswald M.D. - 10/31 1:58 AM CDT Titi Oswald M.D. ? 11/12/2021 ??6:29 AM Peripheral Venous Access Date/Time: 11/12/2021 1:58 AM Performed by: Titi Oswald M.D. Authorized by: Rosaura Sevilla M.D., M .P.H. Care team members present 1. Titi Oswald M.D. 2. Ervin Morales M.D. PROCEDURE DETAILS Ultrasound image guidance used to locali ze target, identify at risk structures, and dynamically used to dire ct therapy to the target. Image(s) acquired and saved. Size (gauge): 18 G Number of attempts: 1 CONSENT Consent obtained: none - emergent situat ion [employer] All relevant documentation and testing w ere reviewed and available. All required blood products, implants, devic es and or special equipment were made available as applicable. Pre-proced ure verification was conducted and the correct site was marked if required. A fire risk assessment was done as applicable. The procedural time-out t o verify correct patient, correct side/site, and procedure was conducted p rior to performing the procedure and confirmed in a procedural pause. PRE-PROCEDURE DETAILS Indication: IV access needed ?? Location: ??Upper extremity Upper extremity: ??Left arm Skin preparation: ??Chlorhexidine SEDATION / ANESTHESIA Anesthesia method: none POST-PROCEDURE DETAILS: Assessment: free fluid flow ?? Procedure completed successfully: yes ?? Complications: no immediate complication s ?? Rosaura Sevilla M.D., M.P.H. IV THERAPY ORDERABLES Ethanol Level, Serum (11/12/2021 1:54 AM CDT) athologist Signature Ethanol, S <10 <10 mg/dL 11/12/2021 3:15 DTL AM CDT Specimen Anatomical Collection Method Collection Time Receive d Time (Source) Location / / Volume Laterality Blood (Blood, 11/12/2021 1:54 AM 11/13/19 22 2:40 Venous) CDT AM CDT Titi Oswald M.D. LAB BLOOD NON ADD-ON Performing Organization Address City/State/ZIP Code Phon e Number [facility] - [address] [place], [place] [address] [facility] [place] [address] [facility] [address] Venous Blood Gas and Electrolytes, POCT (11/12/2021 1:54 AM CDT) Analysis Performed At Patho logist Time Signature ABG and Lytes, Collected DEFAULT 11/12/2021 SMLX POCT, B 1:54 AM CDT Specimen Anatomical Collection Method Collection Time Receive d Time (Source) Location / / Volume Laterality Blood (Other, 11/12/2021 1:54 AM 11/13/19 1:54 Specify in CDT AM CDT Comments) Titi Oswald M.D. LAB POCT ORDERABLES - DEVICE Performing Organization Address [facility]/ZIP Code Phon e Number [facility] - [address] [place], [place] [address] [place] [place] [address] [address] Lactate, POCT (11/12/2021 1:54 AM CDT)Only the most recent of2 resultswithin the time period is included. Analysis Performed At Patho logist Time Signature Lactate, POCT Collected DEFAULT 11/12/2021 SMLX 1:54 AM CDT Specimen Anatomical Collection Method Collection Time Receive d Time (Source) Location / / Volume Laterality Blood (Blood, 11/12/2021 1:54 AM 11/13/19 1:54 Venous) CDT AM CDT Titi Oswald M.D. LAB POCT ORDERABLES - DEVICE Performing Organization Address [facility] Code Phon e Number [facility] - [address] [place], [place] [address] [place] [address] Laboratories-[address] (ABNORMAL) APTT (Activated Partial Thromboplastin Time) (11/12/2021 1:54 AM CDT) P athologist Signature Activated 42 (H) 25 - 37 11/12/2021 STMA Partial sec 2:16 AM CDT Thrombopl Time, P Specimen Anatomical Collection Method Collection Time Receive d Time (Source) Location / / Volume Laterality Blood (Blood, 11/12/2021 1:54 AM 11/13/19 1:59 Venous) CDT AM CDT Titi Oswald M.D. LAB BLOOD ADD-ON Performing Organization Address City/[facility]/ZIP Code Phon e Number [facility] - [address] [place], [place] [address] [facility] [place] [address] Laboratories-[facility] 200 [facility] S-TSH (Thyroid-Stimulating Hormone - Sensitive) (11/12/2021 1:54 AM CDT)Only the most recent of2 resultswithin the time period is included. athologist Signature TSH, Sensitive 3.3 0.3 - 4.2 11/12/2021 DT mIU/L 3:15 AM CDT Specimen Anatomical Collection Method Collection Time Receive d Time (Source) Location / / Volume Laterality Blood (Blood, 11/12/2021 1:54 AM 11/13/19 2:40 Venous) CDT AM CDT Authorizing Provider Result Woodrow Oswald M.D. LAB BLOOD ADD-ON Performing Organization Address City/State/ZIP Code Phon e Number [facility] - [address] [place] [address] 05 [place] [address] Laboratories-[address] (ABNORMAL) Venous Blood Gas and Electrolytes CG8+, POCT (11/12/2021 1:51 AM CDT) athologist Signature Sample Site, Venstick 11/12/2021 PCSM POCT 2:04 AM CDT Comment: ----ADDITIONAL INFORMATION---- Performed at the Point of Care pH, Venous, POCT, B 7.45 (H) 7.32 - 7.43 11/12/2021 2:04 AM CDT PCSM Comment: ----ADDITIONAL INFORMATION---- Performed at the Point of Care pCO2, Venous, POCT, B 33 (L) 41 - 51 mm Hg 11/12/2021 2:0 4 AM CDT PCSM Comment: ----ADDITIONAL INFORMATION---- Performed at the Point of Care pO2, Venous, POCT, B 36 Not Applicable mm Hg 11/13/19 2:04 AM CDT PCSM Comment: ----ADDITIONAL INFORMATION---- Performed at the Point of Care Base Excess, Venous, POCT, B -1 Not Applicable mmol/L 11/12/2021 2:04 AM CDT PCSM Comment: ----ADDITIONAL INFORMATION---- Performed at the Point of Care HCO3, Venous, POCT, B 23 Not Applicable mmol/L 2021 2:04 AM CDT PCSM Comment: ----ADDITIONAL INFORMATION---- Performed at the Point of Care Sodium, POCT, B 138 135 - 145 mmol/L 11/12/2021 2:04 A M CDT PCSM Comment: ----ADDITIONAL INFORMATION---- Performed at the Point of Care Potassium, POCT, B 3.9 3.6 - 5.2 mmol/L 11/12/2021 2:0 4 AM CDT PCSM Comment: ----ADDITIONAL INFORMATION---- Performed at the Point of Care Calcium, Ionized, POCT, B 4.80 4.65 - 5.30 mg/dL 2021 2:04 AM CDT PCSM Comment: ----ADDITIONAL INFORMATION---- Performed at the Point of Care Glucose, POCT, B 131 70 - 140 mg/dL 11/12/2021 2:04 AM CDT PCSM Comment: ----ADDITIONAL INFORMATION---- Performed at the Point of Care Hematocrit, POCT, B 22.0 (L) 35.5 - 44.9 % 11/12/2021 2:04 AM CDT PCSM Comment: ----ADDITIONAL INFORMATION---- Performed at the Point of Care Specimen Anatomical Collection Method Collection Time Receive d Time (Source) Location / / Volume Laterality Blood 11/12/2021 1:51 AM 2 2:04 CDT AM CDT Unknown Provider LAB POCT ORDERABLES - DEVICE Performing Organization Address City/State/ZIP Code Phon e Number POC RST [facility] [address] [place], [place] [address] LABS PCSM [facility] Laboratories - [place], [place] [id number] [place] [address] Transfuse Red Blood Cells : (11/10/2021 9:05 PM CDT)Only the most recent of2 resultswithin the time period is included. Gerard Andino M.D., M.S. BLOOD TRANSFUSION ORDERABLES Protein, Total, Body Fluid (11/10/2021 2:32 PM CDT) athologist Signature Protein, 0.7 See Comment 11/10/2021 DTL Total, BF g/dL 6:46 PM CDT Comment: ----ADDITIONAL INFORMATION---- A pleural fluid total protein to serum t otal protein ratio >0.5 is most consistent wi th exudative effusion. A peritoneal fluid t otal protein > 2.5 g/dL in patients with a hi gh serum ascites albumin gradient can be caused b y heart failure. A peritoneal fluid total protei n > 1.0 g/dL helps to differentiate secondary fr om spontaneous bacterial peritonitis in con junction with other laboratory, imaging, and clin ical findings. All other fluids refer to www.[facility] for further inter pretive information. This test has been modified from the damper fitter's instructions. Its perform ance characteristics were determined by [facility] in a manner consistent with CLIA require ments. This test has not been cleared or approv ed by the U.S. Food and Drug Administration. Fluid Type, Protein, Total Fluid, Peritoneal Fluid 11/10/2021 3:40 PM CDT DTL Specimen Anatomical Collection Method Collection Time Receive d Time (Source) Location / / Volume Laterality Fluid 11/10/2021 2:32 PM 2 3:50 (Peritoneal CDT PM CDT Fluid) Gerard Andino M.D., M.S. LAB BODY FLUIDS AND STOOLS O JOSE Performing Organization Address City/State/ZIP Code Phon e Number [facility] - [address] [place], [place] [address] [facility] [place] [address] Laboratories-[facility] [address] Albumin, Body Fluid (11/10/2021 2:32 PM CDT) P athologist Signature Albumin BF 0.5 See Comment 11/10/2021 DTL g/dL 6:46 PM CDT Comment: ----ADDITIONAL INFORMATION---- Peritoneal fluid albumin is used to calc ulate the serum-ascites albumin gradient (SAAG). V alues greater than or equal to 1.1 g/dL suggest portal hypertension. Pleural fluid albumin may be used to ada culate a serum-effusion albumin gradient. Values greater than 1.2 g/dL are most consistent with a noriega sudative process. ?? All other fluids refer to www.[employer].com for further interpretive information. This t est has been modified from the damper fitter's instruc tions. Its performance characteristics were determi foreign by [facility] in a manner consistent with CLIA require ments. This test has not been cleared or approved by the U.S. Food and Drug Administration. Fluid Type, Albumin Fluid, Peritoneal Fluid 2021 3:40 PM CDT DTL Specimen Anatomical Collection Method Collection Time Receive d Time (Source) Location / / Volume Laterality Fluid 11/10/2021 2:32 PM 3:50 CDT PM CDT Gerard Andino M.D., M.S. LAB BODY FLUIDS AND STOOLS O RDERABLES Performing Organization Address City/[facility] Phon e Number [facility] - [address] (ABNORMAL) Reticulocytes (11/10/2021 12:02 PM CDT) Patholo gist Method Time Signature Reticulocytes, B 7.17 (H) 0.60 - 11/10/2021 DTL 2.71 % 2:23 PM CDT Absolute 137.7 (H) 30.4 - 11/10/2021 DTL Reticulocyte 110.9 2:23 PM CDT x10(9)/L Specimen Anatomical Collection Method Collection Time Receive d Time (Source) Location / / Volume Laterality Blood (Blood, 11/10/2021 12:02 11/10/2021 Venous) PM CDT 12:29 PM CDT Dina Campa M.D. LAB BLOOD ADD-ON Performing Organization Address City/State/ZIP [facility] Phon e Number [facility] - [address] (ABNORMAL) Hemoglobin (11/10/2021 12:02 PM CDT) P athologist Signature Hemoglobin 6.9 (L) 11.6 - 15.0 11/10/2021 DTL g/dL 2:23 PM CDT Specimen Anatomical Collection Method Collection Time Receive d Time (Source) Location / / Volume Laterality Blood (Blood, 11/10/2021 12:02 11/10/2021 Venous) PM CDT 12:29 PM CDT Dina Campa M.D. LAB BLOOD ADD-ON Performing Organization Address City/State/ZIP Code Phon e Number [facility] - [address] [place], [place] [address] [facility] [place] [address] Laboratories-[facility] [address] [facility] Direct Antiglobulin Test (Poly) (11/10/2021 12:02 PM CDT) [facility] Method Time Signature Direct Negative Negative 11/10/2021 [facility] Antiglobulin 12:44 PM CDT Test, Polyspecific Specimen Anatomical Collection Method Collection Time Receive d Time (Source) Location / / Volume Laterality Blood (Blood, 11/10/2021 12:02 11/10/2021 Venous) PM CDT 12:16 PM CDT Dina Campa M.D. LAB BLOOD BANK TEST ORDERABL ES Performing Organization Address City/[facility]/ZIP [facility] Phon e Number [facility] - [address] [place], [place] [address] [facility] [place] [address] Laboratories-[facility] [address] LD (Lactate Dehydrogenase) (11/10/2021 12:02 PM CDT) [facility] LD 208 122 - 222 11/10/2021 DTL U/L 1:10 PM CDT Specimen Anatomical Collection Method Collection Time Receive d Time (Source) Location / / Volume Laterality Blood (Blood, 11/10/2021 12:02 11/10/2021 Venous) PM CDT 12:48 PM CDT Dina Campa M.D. LAB BLOOD NON ADD-ON Performing Organization Address City/State/ZIP [facility] Phon e Number [facility] - [address] [place], [place] [address] [facility] [place], [place] [id number] [place] [address] [facility] (ABNORMAL) Haptoglobin (11/10/2021 12:02 PM CDT) [facility] Haptoglobin, S <14 (L) 30 - 200 11/10/2021 SD[facility] mg/dL 5:27 PM CDT Specimen Anatomical Collection Method Collection Time Receive d Time (Source) Location / / Volume Laterality Blood (Blood, 11/10/2021 12:02 11/10/2021 3:46 Venous) PM CDT PM CDT Dina Campa M.D. LAB BLOOD ADD-ON Performing Organization Address City/State/ZIP Code Phon e Number [facility] [address] [place], [place] [address] [place] [address] [place] [address] Laboratory Medicine and Pathology [address] [place] ECG 12 Lead (11/09/2021 10:47 PM CDT) P athologist Signature Ventricular Rate 88 BPM MUSE ECG/Min [place] Interval 158 ms MUSE QRSD Interval 84 ms MUSE QT Interval 344 ms MUSE QTC Interval 417 ms MUSE P [place] 64 degrees MUSE R [place] 46 degrees MUSE T Wave [place] 37 degrees MUSE Specimen Anatomical Collection Method Collection Time Receive d Time (Source) Location / / Volume Laterality 11/09/2021 10:47 11/09/2021 PM CDT 10:57 PM CDT Impressions MUSE - 11/09/2021 10:57 PM CDT Normal sinus rhythm Low voltage QRS Nonspecific T wave abnormality When compared with ECG of 02-AUG-2021 22 :31, QT has shortened Reviewed by STERLING Brewster Narrative This result has an attachment that is no t available. Procedure Note Jony Fox Jr., M.D. - 11/09/2021For matting of this note might be different from the original. IMPRESSION: Normal sinus rhythm Low voltage QRS Nonspecific T wave abnormality When compared with ECG of 02-AUG-2021 22 :31, QT has shortened Reviewed by STERLING Brewster Dina Campa M.D. ECG ORDERABLES Performing Organization Address City/State/ZIP Code Phon e Number MUSE MUSE NA US Liver Doppler (11/09/2021 10:04 PM CDT) Anatomical Region Laterality Modality Abdomen, Ultrasound RST LOS, Ultrasound ARZ LOS, Ultrasound FLA N/A Ultrasound LOS Specimen (Source) Anatomical Collection Method Collection Time Re ceived Time Location / / Volume Laterality 11/09/2021 10:13 PM CDT Impressions 11/10/2021 7:46 AM CDT 1. Cirrhotic morphology of the liver without suspicious focal hepatic lesions. LI-RADS 1B. 2. Hepatic arterial and venous vasculatu re is patent with antegrade flow. Elevated main hepatic artery velocities. 3. Moderate volume ascites. Narrative 11/10/2021 7:46 AM CDT EXAM: US LIVER DOPPLER Exam performed with color and spectral D oppler analysis. COMPARISON: CT abdomen/pelvis 09/22/2021 . FINDINGS: Grayscale: Nodular liver contour and par enchymal consistent with cirrhotic liver morphology. No suspicious liver lesions. Moderate volum e ascites. Doppler: Splenic, portal, and hepatic ve ins are patent with antegrade flow. The main hepatic artery demonstrates elevated velocities, but is otherwise patent with antegrade flow. Ultrasound LI-RADS score is as follows: Ultrasound Category: US-1: ??Negative (N o US evidence of HCC). ??Recommend continued routine surveillance. Visualization Score: B: ??Moderate limit ations (limitations may obscure small masses, especially < 1 cm). Ultrasound LI-RADS is a standardized sys tem for imaging technique, interpretation, reporting, and data collection for screening or surveil los ultrasound exams in patients at risk for developing HCC. Ultrasound LI-RADS is supported and endorsed by the [employer]. More information can be found on the followin g link: https://www.acr.org/Clinical-Resources/Zybpvfwqk-ymm-Uxnd-Systems/LI-RADS/Ultras uvgz-AO-ZKYX-v2017 Procedure Note Rex Jenkins M.D. - 11/10/2021 EXAM: US LIVER DOPPLER Exam performed with color and spectral D oppler analysis. COMPARISON: CT abdomen/pelvis 09/22/2021 . FINDINGS: Grayscale: Nodular liver contour and par enchymal consistent with cirrhotic liver morphology. No suspicious liver lesions. Moderate volum e ascites. Doppler: Splenic, portal, and hepatic ve ins are patent with antegrade flow. The main hepatic artery demonstrates elevated velocities, but is otherwise patent with antegrade flow. Ultrasound LI-RADS score is as follows: Ultrasound Category: US-1: Negative (No US evidence of HCC). Recommend continued routine surveillance. Visualization Score: B: Moderate limitat ions (limitations may obscure small masses, especially < 1 cm). Ultrasound LI-RADS is a standardized sys tem for imaging technique, interpretation, reporting, and data collection for screening or surveil los ultrasound exams in patients at risk for developing HCC. Ultrasound LI-RADS is supported and endorsed by the [employer]. More information can be found on the followin g link: https://www.acr.org/Clinical-Resources/Nzkcvzwmw-jal-Ctnz-Systems/LI-RADS/Ultras azih-MC-DGJL-v2017 IMPRESSION: 1. Cirrhotic morphology of the liver wit hout suspicious focal hepatic lesions. LI-RADS 1B. 2. Hepatic arterial and venous vasculatu re is patent with antegrade flow. Elevated main hepatic artery velocities. 3. Moderate volume ascites. Dina COOLG US PROCEDURES AFP (Alpha-Fetoprotein), Tumor Marker (11/09/2021 7:09 PM CDT)Only the most recent of2 resultswithin the time period is included. athologist Signature Alpha-Fetoprote 6.4 ng/mL 11/10/2021 [facility] in, Tumor 3:04 PM CDT Marker, S Comment: ----REFERENCE VALUE---- <8.4 Reference values are for non- subjects only; production of AFP elevates values in women. ----ADDITIONAL INFORMATION---- In this Richie Waqas assay AFP concen trations are <8.4 ng/mL for 99% of a normal popul ation consisting of non- healthy indiv iduals, without known liver disease, hepatocellu lar carcinoma, or germ-cell tumors. ??The persistence of alpha-fetoprotein, an uncommon heredita ry trait may cause elevations of AFP above the refere nce interval. In some immunoassays, the presence of un usually high concentrations of analyte may result in a high-dose hook effect. This may result in a lowe r or even normal measured analyte concentration. ??If the reported result is inconsistent with the clinical presen tation, the laboratory should be alerted for troubleshooting. F or diagnostic purposes, these immunoassay results should always be assessed in conjunction with the patients medical hi story, clinical examination and other findings. ? The testing method is an immunoenzymatic assay manufactured by [employer]. and is tested on the Richie [employer] DxI 800. Values obtained with different assay met hods or kits may be different and cannot be used intercha ngeably. ? Test results cannot be interpreted as ab solute evidence of the presence or absence of malignant dis ease. Alpha-Fetoprotein values are not interpr etable in females for the investigation of maligna nt disease. Specimen Anatomical Collection Method Collection Time Receive d Time (Source) Location / / Volume Laterality Blood (Blood, 11/09/2021 7:09 PM 11/11/19 22 2:21 Venous) CDT PM CDT Dina Campa M.D. LAB BLOOD ADD-ON Performing Organization Address City/State/ZIP Code Phon e Number [facility] [address] [place], [place] [address] [facility] [place] [address] Laboratory Medicine and Pathology [address] [place] Transplant/Heart - Blood, External Lab Results (10/25/2021 7:18 AM CDT) athologist Signature EXT Glucose 101 SCANNED REPORT EXT BUN (Blood 25 SCANNED REPORT Urea Nitrogen) EXT Creatinine 0.97 mg/dL SCANNED REPORT EXT Sodium 133 mmol/L SCANNED REPORT EXT Potassium 4.8 SCANNED REPORT EXT CO2 20 SCANNED REPORT EXT Albumin 2.6 g/dL SCANNED REPORT EXT Alkaline 235 SCANNED REPORT Phosphatase EXT AST 72 SCANNED REPORT EXT ALT 27 SCANNED REPORT EXT Bilirubin, 22.9 mg/dL SCANNED REPORT Total Specimen (Source) Anatomical Collection Method Collection Time Re ceived Time Location / / Volume Laterality Blood 10/25/2021 7:18 AM CDT Narrative This result has an attachment that is no t available. Historical Provider LAB BLOOD NON ADD-ON Performing Organization Address City/State/ZIP Code Phon e Number SCANNED REPORT BMD Bone Density Spine Hips (10/09/2021 4:37 PM CDT) Anatomical Region Laterality Modality Hip, Lumbar Spine, Nuclear Medicine RST LOS, N/A Radiographic Imaging Musculoskeletal ARZ LOS, Muskuloskeletal FLA LOS Specimen (Source) Anatomical Collection Method Collection Time Re ceived Time Location / / Volume Laterality 10/09/2021 4:50 PM CDT Impressions 10/09/2021 4:51 PM CDT Bone mineral density below the expected range for age. Narrative 10/09/2021 4:51 PM CDT EXAM: ??BMD BONE DENSITY SPINE HIPS Bone Mineral Density (BMD) analysis perf ormed on [employer] with serial number [id number]. ? FINDINGS: Left Hip: Femur Neck: BMD = 0.741 g/cm2 Z-score = -2.0 Total Hip: BMD = 0.725 g/cm2 Z-score = -2.2 Right Hip: Femur Neck: BMD = 0.752 g/cm2 Z-score = -1.9 Total Hip: BMD = 0.715 g/cm2 Z-score = -2.2 Lumbar Spine: L1: BMD = 0.722 g/cm2 L2: BMD = 0.839 g/cm2 L3: BMD = 0.865 g/cm2 L4: BMD = 0.823 g/cm2 Total Lumbar Spine (L1-L4): BMD = 0.809 g/cm2 Z-score = -3.1 ? Please note: A more comprehensive DXA re port, including images and graphs, is available in [employer]READS. In the absence of other causes of low BM D or demonstrated skeletal fragility, osteoporosis may be diagnosed in post-menopausal women and m en at or above age 50 when the T-score is at or below -2.5 as defined by the WHO. Low bone density is present at T-scores between -1 and - 2.5. The diagnosis in pre-menopausal women and men < age 50 ca n be based on low bone density or evidence of skeletal fragility in the appropriate clinical se tting. Patient does not meet ISCD guidelines fo r FRAX calculations. ?? Procedure Note Migue Andrews M.D. - 10/09/2021Format ting of this note might be different from the original. EXAM: BMD BONE DENSITY SPINE HIPS Bone Mineral Density (BMD) analysis perf ormed on [employer] with serial number [id number]. FINDINGS: Left Hip: Femur Neck: BMD = 0.741 g/cm2 Z-score = -2.0 Total Hip: BMD = 0.725 g/cm2 Z-score = -2.2 Right Hip: Femur Neck: BMD = 0.752 g/cm2 Z-score = -1.9 Total Hip: BMD = 0.715 g/cm2 Z-score = -2.2 Lumbar Spine: L1: BMD = 0.722 g/cm2 L2: BMD = 0.839 g/cm2 L3: BMD = 0.865 g/cm2 L4: BMD = 0.823 g/cm2 Total Lumbar Spine (L1-L4): BMD = 0.809 g/cm2 Z-score = -3.1 Please note: A more comprehensive DXA re port, including images and graphs, is available in [employer]S. In the absence of other causes of low BM D or demonstrated skeletal fragility, osteoporosis may be diagnosed in post-menopausal women and m en at or above age 50 when the T-score is at or below -2.5 as defined by the WHO. Low bone density is present at T-scores between -1 and - 2.5. The diagnosis in pre-menopausal women and men < age 50 ca n be based on low bone density or evidence of skeletal fragility in the appropriate clinical se tting. Patient does not meet ISCD guidelines fo r FRAX calculations. IMPRESSION: Bone mineral density below the expected range for age. Warren Hernández M.D., M.P.H. IMG DXA PROCEDURES Pulmonary Function Tests (10/07/2021 3:07 PM CDT) P athologist Signature FVC 4.04 L [address] FVC% 111 % [facility] [address] [address] FVCLLN 2.88 L [facility] [address] FEV1 3.62 L [facility] [address] FEV1% 118 % [facility] [address] [id number] 2.45 L [facility] FEV1/FVC 90 % [facility] [address] FEV1/FVCLLN 73 % [address] FEF 25-75 5.30 L/sec [facility] [facility] [address] TWE29-60% 154 % [facility] [address] [id number] 2.20 L/sec [facility] [address] SVC 4.19 L [facility] RV 1.17 L [facility] [address] RVULN 2.33 L [facility] [address] TLC 5.36 L [facility] [address] TLC% 111 % [facility] [address] TLCLLN 3.47 L [facility] RV/TLC 22 % [facility] RV/TLC% 72 % [facility] RV/TLCuln 44 % [facility] DLCO 16.63 ml/min/mmHg [facility] DLCO% 77 % [facility] DLCOlln 15.76 ml/min/mmHg [facility] DLCOc 20.09 ml/min/mmHg [facility] DLCOc% 94 % [facility] VA 5.32 L [facility] VA% 115 % [facility] VAlln 3.76 L [facility] Height 159.00 [facility] Weight in Kg 59.70 [facility] BMI 23.6 [facility] Specimen (Source) Anatomical Collection Method Collection Time Re ceived Time Location / / Volume Laterality 10/07/2021 2:32 PM CDT Impressions [facility] - 10/10/2021 8:25 AM C DT TECHNICAL QUALITY: ??Good. LUNG MECHANICS: ??No airflow obstruction . ??Normal inspiratory loop. LUNG VOLUMES: ??No restriction. DIFFUSION: ??Normal diffusing capacity. SUMMARY: ??Normal Pulmonary Function Arelis ts. ?This interpretation has been electro nically signed: ??LONNY MEDINA 10/10/2021 ??08:21:50 AM? Narrative This result has an attachment that is no t available. Warren Hernández M.D., M.P.H. PFT ORDERABLES Performing Organization Address City/State/ZIP Code Phon e Number [facility] NA (ABNORMAL) Iothalamate, Glomerular Filtration Rate (10/03/2021 11:18 AM CDT) P athologist Signature Uncorrctd 55 mL/min 10/06/2021 BILL Iothal Cl 2:59 PM CDT Corrctd Iothal 59 (L) 81 - 136 10/06/2021 BILL Cl mL/min/BSA 2:59 PM CDT Comment: ----ADDITIONAL INFORMATION---- This test was developed and its performa nce characteristics determined by [facility] in a manner consistent with CLIA requirements. This test has not been cleared or approved by the [place] d and Drug Administration. Specimen Anatomical Collection Method Collection Time Receive d Time (Source) Location / / Volume Laterality Varies (Blood, 10/03/2021 11:18 2 Venous) AM CDT 12:59 PM CDT Narrative [facility] - 10/06/2021 2:59 PM CDT Specimen Information: Specimen ID: [id number] Specimen Type: Varies Specimen Collection Start Date: 11:18 AM Specimen Received Date: 10/03/2021 12:59 PM Specimen ID: [id number] Specimen Type: Varies Specimen Collection Start Date: 12:07 PM Specimen Received Date: 10/03/2021 12:59 PM Specimen ID: [id number] Specimen Type: Varies Specimen Collection Start Date: 12:41 PM Specimen Received Date: 10/03/2021 12:59 PM Specimen ID: [id number] Specimen Type: Varies Specimen Collection Start Date: 12:10 PM Specimen Received Date: 10/03/2021 12:59 PM Specimen ID: [id number] Specimen Type: Varies Specimen Collection Start Date: 12:43 PM Specimen Received Date: 10/03/2021 12:59 PM Warren Hernández M.D., M.P.H. LAB BLOOD NON ADD-ON Performing Organization Address City/State/ZIP Code Phon e Number [facility] - [address] [place] [place] [address] [address] [place] [address] [facility] [address] [facility] Ethyl Glucuronide Screen with Reflex, Urine (09/30/2021 8:23 AM CDT) [facility] Method Time Signature Ethyl Negative Cutoff: 09/30/2021 SDSC Glucuronide Scrn 500 ng/mL 11:12 AM CDT w/Reflex, U Comment: ----ADDITIONAL INFORMATION---- This test was developed and its performa nce characteristics determined by [facility] in a manner consistent with CLIA requirements. This test has not been cleared or approved by the U.S. Meggan d and Drug Administration. Specimen Anatomical Collection Method Collection Time Receive d Time (Source) Location / / Volume Laterality Urine (Urine, 09/30/2021 8:23 AM 10/01/19 9:59 Midstream) CDT AM CDT Warren Hernández M.D., M.P.H. LAB URINE ORDERABLES Performing Organization Address City/State/ZIP Code Phon e Number [facility] [address] [place], [place] [address] [place], [place] [address]t. [place] [address] Laboratory Medicine and Pathology [address] [place] (ABNORMAL) Drug Abuse Survey with Confirmation, Panel 9, Urine (09/30/2021 8:23 AM CDT) Component Value Ref Test Analysis Performed At [facility] Range Method Time Signature Alcohol Negative Cutoff: 09/30/2021 SDSC 10 mg/dL 11:12 AM CDT Amphetamines Negative Cutoff: 09/30/2021 SDSC 500 11:12 AM ng/mL CDT Barbiturates Negative Cutoff: 09/30/2021 SDSC 200 11:12 AM ng/mL CDT Benzodiazepines Presumptive Cutoff: 09/30/2021 SDSC Positive (A) 100 11:12 AM ng/mL CDT Comment: Drug confirmation to follow. ??Presumpti ve Positive means that the screening method is positive, but the test needs t o be run by a confirmatory method before being finalized. Cocaine Negative Cutoff: 150 ng/mL 09/30/2021 11:12 AM CD T SDSC Comment: This cocaine immunoassay targets benzoyl ecgonine the primary metabolite of cocaine. Methadone Metabolite Negative Cutoff: 300 09/30/2021 11:12 AM SDSC ng/mL CDT Opiates Negative Cutoff: 300 09/30/2021 11:12 AM SDSC ng/mL CDT Phencyclidine Negative Cutoff: 25 ng/mL 09/30/2021 11:12 AM SDSC CDT Tetrahydrocannabinol Presumptive Positive Cutoff: 50 ng/mL 09/30/2021 11:12 AM SDSC (A) CDT Comment: This immunoassay targets delta-9 tetrahy drocannabinol carboxylic acid (THC-COOH), a metabolite of delta-9 tetr ahydrocannabinol the main psychoactive ingredient of marijuana. Drug confirmation to follow. ??Presumpti ve Positive means that the screening method is positive, but the test needs t o be run by a confirmatory method before being finalized. ----ADDITIONAL INFORMATION---- This report is intended for use in clini ada monitoring or management of patients. ??It is not intended for use i n employment-related testing. This test has been modified from the man ufacturer's instructions. Its performance characteristics were determi foreign by [facility] in a manner consistent with CLIA requirements. This test has not been cleared or approved by the U.S. Food and Drug Administration . Specimen Anatomical Collection Method Collection Time Receive d Time (Source) Location / / Volume Laterality Urine (Urine, 09/30/2021 8:23 AM 10/01/19 22 Midstream) CDT 10:00 AM CDT Warren Hernández M.D., M.P.H. LAB URINE ORDERABLES Performing Organization Address [facility] Phon e Number [facility] [address] [place], [place] [address] [address] [facility] [place] [place] [address] Laboratory Medicine and Pathology [address] [place] Transplant ABO Confirmation (09/30/2021 7:43 AM CDT) athologist Signature Transplant ABO B Pos 09/30/2021 ETRM Confirmation 11:13 AM CDT Specimen Anatomical Collection Method Collection Time Receive d Time (Source) Location / / Volume Laterality Blood (Blood, 09/30/2021 7:43 AM 10/01/19 22 Venous) CDT 10:06 AM CDT Warren Hernández M.D., M.P.H. LAB BLOOD BANK TEST OR DERABLES Performing Organization Address [facility] Phon e Number [facility] [place], [place] [address] [address] [facility] [place] [address] [facility] [address] [facility] (ABNORMAL) CBC no call back, reflex T/S HGB <8 (09/30/2021 7:39 AM CDT) Patholo gist Method Time Signature Hemoglobin 8.9 (L) 11.6 - 09/30/2021 DTL 15.0 g/dL 8:09 AM CDT Hematocrit 26.1 (L) 35.5 - 09/30/2021 DTL 44.9 % 8:09 AM CDT Erythrocytes 2.58 (L) 3.92 - 09/30/2021 DTL 5.13 8:09 AM CDT x10(12)/L MCV 101.2 (H) 78.2 - 09/30/2021 DTL 97.9 fL 8:09 AM CDT RBC Distrib Width 14.0 12.2 - 09/30/2021 DTL 16.1 % 8:09 AM CDT Platelet Count 69 (L) 157 - 371 09/30/2021 DTL x10(9)/L 8:09 AM CDT Leukocytes 7.6 3.4 - 9.6 09/30/2021 DTL x10(9)/L 8:09 AM CDT Neutrophils 4.89 1.56 - 09/30/2021 DTL 6.45 8:09 AM CDT x10(9)/L Lymphocytes 1.57 0.95 - 09/30/2021 DTL 3.07 8:09 AM CDT x10(9)/L Monocytes 0.85 (H) 0.26 - 09/30/2021 DTL 0.81 8:09 AM CDT x10(9)/L Eosinophils 0.25 0.03 - 09/30/2021 DTL 0.48 8:09 AM CDT x10(9)/L Basophils 0.05 0.01 - 09/30/2021 DTL 0.08 8:09 AM CDT x10(9)/L Specimen Anatomical Collection Method Collection Time Receive d Time (Source) Location / / Volume Laterality Blood (Blood, 09/30/2021 7:39 AM 10/01/19 22 7:55 Venous) CDT AM CDT Warren Hernández M.D., M.P.H. LAB BLOOD NON ADD-ON Performing Organization Address City/State/ZIP Code Phon e Number [facility] - [address] [place], [place] [address] [facility] [place] [address] [facility] [address] [facility] (ABNORMAL) Hemoglobin A1c (09/30/2021 7:39 AM CDT) Analysis Performed At Patho logist Time Signature Hemoglobin A1c, <4.0 (L) 4.0 - 5.6 09/30/2021 DTL B % 9:10 AM CDT Comment: Falsely low HbA1c results may be observe d in patients with clinical conditions that shorten erythro cyte life span or decrease mean erythrocyte age. HbA1c may not accurately reflect glycemic control when clinical c onditions that affect erythrocyte survival are present. Fructo samine may be used as an alternate measurement of glycemic con trol. Specimen Anatomical Collection Method Collection Time Receive d Time (Source) Location / / Volume Laterality Blood (Blood, 09/30/2021 7:39 AM 10/01/19 7:55 Venous) CDT AM CDT Warren Hernández M.D., M.P.H. LAB BLOOD ADD-ON Performing Organization Address [facility] Phon e Number [facility] - [address] [place], [place] [address] [facility] [place] [address] [facility] [address] HBc Total Ab Scrn, S (09/30/2021 7:38 AM CDT) athologist Signature HBc Total Ab Negative Negative 09/30/2021 [facility] Scrn, S 2:11 PM CDT Specimen Anatomical Collection Method Collection Time Receive d Time (Source) Location / / Volume Laterality Blood (Blood, 09/30/2021 7:38 AM 10/01/19 Venous) CDT 10:15 AM CDT Warren Hernández M.D., M.P.H. LAB MICROBIOLOGY - BLO OD ORDERABLES Performing Organization Address City/[facility] Phon e Number [facility] [address] [place] [address] [facility] [place] [address] Laboratory Medicine and Pathology [address] [place] HBs Antibody Scrn, S (09/30/2021 7:38 AM CDT) athologist Signature HBs Antibody Positive 09/30/2021 [facility] Scrn, S 2:20 PM CDT Comment: Patient is considered to be immune to in fection with HBV. ----REFERENCE VALUE---- Unvaccinated: Negative Vaccinated: Positive HBs Antibody, Quantitative, S 15.2 mIU/mL 09/30/2021 2:20 PM CDT [facility] Comment: ----REFERENCE VALUE---- Unvaccinated: <5.0 Vaccinated: >=12.0 Specimen Anatomical Collection Method Collection Time Receive d Time (Source) Location / / Volume Laterality Blood (Blood, 09/30/2021 7:38 AM 10/01/19 22 Venous) CDT 10:15 AM CDT Warren Hernández M.D., M.P.H. LAB MICROBIOLOGY - BLO OD ORDERABLES Performing Organization Address City/State/ZIP Code Phon e Number [facility] [address] [place], [place] [address] [facility] [place] [address] Laboratory Medicine and Pathology [address] [place] HLA Class II Typing by Low Resolution, Recipient (09/30/2021 7:38 AM CDT) [facility] Method Time Signature DRB1 - 1 DR4 Not 10/10/2021 DBB8 Equivalent Applicable 10:12 AM CDT DRB1 - 2 DR16 Not 10/10/2021 DBB8 Equivalent Applicable 10:12 AM CDT DRB1 - 1 DRB1*04:01 Not 10/10/2021 DBB8 Molecular Applicable 10:12 AM CDT DRB1 - 2 DRB1*16:02 Not 10/10/2021 DBB8 Molecular Applicable 10:12 AM CDT [id number] - 1 DR53 Not 10/10/2021 DBB8 Equivalent Applicable 10:12 AM CDT IXR209 - 2 DR51 Not 10/10/2021 DBB8 Equivalent Applicable 10:12 AM CDT EXT861 - 1 DRB4*01:03 Not 10/10/2021 DBB8 Molecular Applicable 10:12 AM CDT PCS794 - 2 DRB5*02:02 Not 10/10/2021 DBB8 Molecular Applicable 10:12 AM CDT DQB1 - 1 DQ7 Not 10/10/2021 DBB8 Equivalent Applicable 10:12 AM CDT DQB1 - 2 DQ7 Not 10/10/2021 DBB8 Equivalent Applicable 10:12 AM CDT DQB1 - 1 DQB1*03:01 Not 10/10/2021 DBB8 Molecular Applicable 10:12 AM CDT DQB1 - 2 DQB1*03:01 Not 10/10/2021 DBB8 Molecular Applicable 10:12 AM CDT DQA1 - 1 DQA1*03:03 Not 10/10/2021 DBB8 Molecular Applicable 10:12 AM CDT DQA1 - 2 DQA1*05:05 Not 10/10/2021 DBB8 Molecular Applicable 10:12 AM CDT DPB1 - 1 DPB1*04:01 Not 10/10/2021 DBB8 Molecular Applicable 10:12 AM CDT DPB1 - 2 DPB1*04:02 Not 10/10/2021 DBB8 Molecular Applicable 10:12 AM CDT DPA1 - 1 DPA1*01:03 Not 10/10/2021 DBB8 Molecular Applicable 10:12 AM CDT DPA1 - 2 DPA1*01:03 Not 10/10/2021 DBB8 Molecular Applicable 10:12 AM CDT Test Method PCR - Next 10/10/2021 DBB8 Generation 10:12 AM Sequencing CDT Comment: Molecular HLA typing reported as serolog ical equivalents and intermediate to high resolution molecula r values. ??For convenience, when not defined in the WHO Nomenclature a laboratory defined serologic equivalent has been provided. This test was developed and its performa nce characteristics determined by [facility] in a manner co nsistent with CLIA requirements. This test has not been norah ared or approved by the U.S. Food and Drug Administration. CLIA: [id number] ??CLIA Electrical [employer] Reconditioner: THAIS CAR MD,PhD Specimen Anatomical Collection Method Collection Time Receive d Time (Source) Location / / Volume Laterality Blood (Blood, 09/30/2021 7:38 AM 10/01/19 8:12 Venous) CDT AM CDT Warren Hernández M.D., M.P.H. LAB HLA ORDERABLES Performing Organization Address City/State/ZIP Code Phon e Number [facility] - [address] [place], [place] [address] [facility] [place] [place] [address] [facility] [address] HLA Class I Typing by Low Resolution, Recipient (09/30/2021 7:38 AM CDT) [facility] Method Time Signature A - 1 A3 Not 10/10/2021 DBB8 Equivalent Applicable 10:12 AM CDT A - 2 A31 Not 10/10/2021 DBB8 Equivalent Applicable 10:12 AM CDT A - 1 A*03:01 Not 10/10/2021 DBB8 Molecular Applicable 10:12 AM CDT A - 2 A*31:01 Not 10/10/2021 DBB8 Molecular Applicable 10:12 AM CDT B - 1 B7 Not 10/10/2021 DBB8 Equivalent Applicable 10:12 AM CDT B - 2 B35 Not 10/10/2021 DBB8 Equivalent Applicable 10:12 AM CDT B - 1 B*07:02 Not 10/10/2021 DBB8 Molecular Applicable 10:12 AM CDT B - 2 B*35:01 Not 10/10/2021 DBB8 Molecular Applicable 10:12 AM CDT Bw - 1 Bw6 Not 10/10/2021 DBB8 Equivalent Applicable 10:12 AM CDT Bw - 2 Bw6 Not 10/10/2021 DBB8 Equivalent Applicable 10:12 AM CDT C - 1 Cw4 Not 10/10/2021 DBB8 Equivalent Applicable 10:12 AM CDT C - 2 Cw7 Not 10/10/2021 DBB8 Equivalent Applicable 10:12 AM CDT C - 1 C*04:01 Not 10/10/2021 DBB8 Molecular Applicable 10:12 AM CDT C - 2 C*07:02 Not 10/10/2021 DBB8 Molecular Applicable 10:12 AM CDT Test Method PCR - Next 10/10/2021 DBB8 Generation 10:12 AM Sequencing CDT Comment: Molecular HLA typing reported as serolog ical equivalents and intermediate to high resolution molecula r values. ??For convenience, when not defined in the WHO Nomenclature a laboratory defined serologic equivalent has been provided. This test was developed and its performa nce characteristics determined by [facility] in a manner co nsistent with CLIA requirements. This test has not been norah ared or approved by the U.S. Food and Drug Administration. CLIA: [id number] ??CLIA [employer] Reconditioner: THAIS CAR MD,PhD Specimen Anatomical Collection Method Collection Time Receive d Time (Source) Location / / Volume Laterality Blood (Blood, 09/30/2021 7:38 AM 10/01/19 8:12 Venous) CDT AM CDT Warren Hernández M.D., M.P.H. LAB HLA ORDERABLES Performing Organization Address City/[facility] Code Phon e Number [facility] - [address] [place], [place] [address] [facility] [place]BB[address] [place] [address] [facility] [address] [facility] HIV-1/-2 Ag and Ab Screen, Plasma (09/30/2021 7:38 AM CDT) athologist Signature HIV-1/-2 Ag Negative Negative 09/30/2021 [facility] and Ab Screen, 1:16 PM CDT Comment: Negative result does not rule out HIV in fection. If exposure to HIV infection occurred <14 d ays ago, contact the laboratory to request additi on of HIV-1 RNA detection / quantification test (HIV QN). Specimen Anatomical Collection Method Collection Time Receive d Time (Source) Location / / Volume Laterality Blood (Blood, 09/30/2021 7:38 AM 10/01/19 22 Venous) CDT 10:14 AM CDT Warren Hernández M.D., M.P.H. LAB MICROBIOLOGY - BLO OD ORDERABLES Performing Organization Address [facility] Code Phon e Number [facility] [address] [place], [place] [address] [facility] [place] [address] Laboratory Medicine and Pathology [address] [place] Lipid Panel (09/30/2021 7:38 AM CDT) athologist Signature Cholesterol, 171 mg/dL 09/30/2021 DTL Total 10:40 AM CDT Comment: ----REFERENCE VALUE---- Desirable: < 200 Borderline high: 200 - 239 High: > or = 240 Triglycerides 87 mg/dL 09/30/2021 10:40 AM CDT DT L Comment: ----REFERENCE VALUE---- Normal: <150 Borderline high: 150-199 High: 200-499 Very high: > or =500 Cholesterol, HDL, S 56 >=50 mg/dL 09/30/2021 9:15 AM CDT DTL Calculated LDL 98 mg/dL 09/30/2021 10:40 AM CDT D TL Comment: ----REFERENCE VALUE---- Desirable: <100 mg/dL Above Desirable: 100-129 mg/dL Borderline High: 130-159 mg/dL High: 160-189 mg/dL Very High: >=190 mg/dL Cholesterol, Non-HDL, Calculated 115 mg/dL 022 10:40 AM CDT DTL Comment: ----REFERENCE VALUE---- Desirable: <130 Above Desirable: 130-159 Borderline high: 160-189 High: 190-219 Very high: > or =220 Specimen Anatomical Collection Method Collection Time Receive d Time (Source) Location / / Volume Laterality Blood (Blood, 09/30/2021 7:38 AM 10/01/19 22 8:07 Venous) CDT AM CDT Warren Hernández M.D., M.P.H. LAB BLOOD ADD-ON Performing Organization Address City/State/ZIP Code Phon e Number [facility] - [address] [place], [place] [address] [facility] [place] [address] [facility] [address] [facility] QuantiFERON-Tb Gold Plus, Blood (09/30/2021 7:38 AM CDT) athologist Signature QuantiFERON-TB Negative Negative 10/01/2021 SDSC Gold Plus 10:03 AM CDT Result Comment: No interferon-gamma response to M. tuber culosis antigens was detected. Latent infection with M. tuberculosis is unlikely. A single ne gative result does not exclude infection with M. tuber culosis. In patients at high risk for M.tuberculo sis infection, a second test should be considered in ac cordance with the 2017 ATS/IDSA/CDC Clinical Prac mary Guidelines for Diagnosis of Tuberculosis in Adults and Children [Heidin DM et. al. Clin. Infect. Dis. 2017;64(2):111-115]. The reference range for the 'TB1 Ag reece s Nil Result' and 'TB2 Ag minus Nil Result' is an Inte rferon-gamma level <0.35 IU/mL. TB1 Ag minus Nil Result 0.00 IU/mL 10/01/2021 10:03 AM CDT [facility] TB2 Ag minus Nil Result 0.00 IU/mL 10/01/2021 10:03 AM CDT SDSC Mitogen minus Nil Result 5.79 IU/mL 10/01/2021 10:0 3 AM CDT [facility] Nil Result 0.00 IU/mL 10/01/2021 10:03 AM CDT [facility] Specimen Anatomical Collection Method Collection Time Receive d Time (Source) Location / / Volume Laterality Blood (Blood, 09/30/2021 7:38 AM 10/01/19 9:36 Venous) CDT AM CDT Narrative [facility]PPORT [facility] R - 10/01/2021 10:03 AM CDT Specimen Information: Specimen ID: [id number] Specimen Type: Blood Specimen Collection Start Date: 10/01/19 ??7:38 AM Specimen Received Date: 09/30/2021 ??9:3 6 AM Specimen ID: [id number] Specimen Type: Blood Specimen Collection Start Date: 10/01/19 ??7:38 AM Specimen Received Date: 09/30/2021 ??9:3 6 AM Specimen ID: [id number] Specimen Type: Blood Specimen Collection Start Date: 10/01/19 ??7:38 AM Specimen Received Date: 09/30/2021 ??9:3 6 AM Specimen ID: [id number] Specimen Type: Blood Specimen Collection Start Date: 10/01/19 ??7:38 AM Specimen Received Date: 09/30/2021 ??9:3 6 AM Warren Hernández M.D., M.P.H. LAB MICROBIOLOGY - BLO OD ORDERABLES Performing Organization Address City/State/ZIP Code Phon e Number [facility] [address] [place] [address] SU[facility] [place] [address] Laboratory Medicine and Pathology [address] [place] HCV RNA Detect / Quant, Serum (09/30/2021 7:38 AM CDT) [facility] Method Time Signature HCV RNA Undetected Undetected 10/01/2021 SDSC Detect/Quant, IU/mL 12:31 PM S CDT Comment: Result in log IU/mL is Undetected. ----ADDITIONAL INFORMATION---- The quantification range of this assay i s 15 to 100,000,000 IU/mL (1.18 log to 8.00 log IU/mL). Testing was performe d using the john HCV test ([employer] with the john 6800 System. Specimen Anatomical Collection Method Collection Time Receive d Time (Source) Location / / Volume Laterality Blood (Blood, 09/30/2021 7:38 AM 10/01/19 Venous) CDT 10:15 AM CDT Warren Hernández M.D., M.P.H. LAB MICROBIOLOGY - BLO OD ORDERABLES Performing Organization Address [facility] Phon e Number [address] [place] [address] SUPPORT [place] [address] Laboratory Medicine and Pathology [address] [place] [address] Dr. [place] HCV Ab Scrn w/Reflex to HCV PCR, Serum (09/30/2021 7:38 AM CDT) athologist [facility] HCV Ab Screen, Negative Negative 09/30/2021 [facility] S 2:11 PM CDT Comment: [id number] ratio is <1.00 . Specimen Anatomical Collection Method Collection Time Receive d Time (Source) Location / / Volume Laterality Blood (Blood, 09/30/2021 7:38 AM 10/01/19 Venous) CDT 10:15 AM CDT Warren Hernández M.D., M.P.H. LAB MICROBIOLOGY - BLO OD ORDERABLES Performing Organization Address [facility] Phon e Number [address] [place] [address] SUPPORT [facility] [place] [address] Laboratory Medicine and Pathology [address] [place] [address] Dr. [place] (ABNORMAL) Qsave-2-Ncobkgukcds Proteotype S/Z by LC-MS/MS (09/30/2021 7:38 AM CDT) athologist [facility] [id number] 211 (H) 100 - 190 10/01/2021 [facility] ypsin, S mg/dL 9:47 AM CDT Comment: ----ADDITIONAL INFORMATION---- Method: Nephelometry Interpretation S Mutation: Negative 10/02/2021 3:3 2 PM CDT [facility] Z Mutation: Negative Results most consistent with MM phenotype. Comment: ----ADDITIONAL INFORMATION---- This test was developed and its performa nce characteristics determined by [facility] in a manner consistent with CLIA requirements. This test has not been cleared or approved by the U.[place]. Meg[place] d and Drug Administration. Specimen Anatomical Collection Method Collection Time Receive d Time (Source) Location / / Volume Laterality Blood (Blood, 09/30/2021 7:38 AM 10/02/19 6:06 Venous) CDT AM CDT Warren Hernández M.D., M.P.H. LAB BLOOD NON ADD-ON Performing Organization Address [facility] Phon e Number [address] [place] [address] 05 [facility] [place] [address] Laboratory Medicine and Pathology [address] [place] [address] Dr. [place] Hepatitis A IgM Ab, Serum (09/30/2021 7:38 AM CDT) athologist Signature Hepatitis A Negative Negative 09/30/2021 [facility] IgM Ab, S 1:17 PM CDT Comment: Result does not exclude the possibility of exposure to hepatitis A virus. ??Antibody level duri ng early infection stage may be below the limit of detectio n of the assay. Specimen Anatomical Collection Method Collection Time Receive d Time (Source) Location / / Volume Laterality Blood (Blood, 09/30/2021 7:38 AM 10/01/19 Venous) CDT 10:14 AM CDT Warren Hernández M.D., M.P.H. LAB MICROBIOLOGY - BLO OD ORDERABLES Performing Organization Address City/[facility] Phon e Number [address] [place] [address] 05 SUPPORT [place] [address] Laboratory Medicine and Pathology [address] [place] [address] Dr. [place] Hepatitis A IgG Ab, Serum (09/30/2021 7:38 AM CDT) athologist Signature Hepatitis A Negative 09/30/2021 [facility] IgG Ab, S 1:17 PM CDT Comment: Result indicates no past exposure or imm unity to hepatitis A infection. ?? ----REFERENCE VALUE---- Unvaccinated: Negative Vaccinated: Positive Specimen Anatomical Collection Method Collection Time Receive d Time (Source) Location / / Volume Laterality Blood (Blood, 09/30/2021 7:38 AM 10/01/19 Venous) CDT 10:14 AM CDT Warren Hernández M.D., M.P.H. LAB MICROBIOLOGY - BLO OD ORDERABLES Performing Organization Address City/[facility] Phon e Number [facility] [address] [place] [address] 05 [facility] [place] [address] Laboratory Medicine and Pathology [address] [place] [address] Dr. CHAP[place] (ABNORMAL) Vitamin A Level (09/30/2021 7:38 AM CDT) athologist Signature Vitamin A 9.5 (L) 32.5 - 78.0 10/01/2021 [facility] mcg/dL 11:30 AM CDT Comment: In this sample, the retinol (vitamin A) level indicates a severe deficiency. ----ADDITIONAL INFORMATION---- This test was developed and its performa nce characteristics determined by [facility] in a manner consistent with CLIA requirements. This test has not been cleared or approved by the U.[place]. Meggan d and Drug Administration. Specimen Anatomical Collection Method Collection Time Receive d Time (Source) Location / / Volume Laterality Blood (Blood, 09/30/2021 7:38 AM 10/01/19 Venous) CDT 11:15 AM CDT Warren Hernández M.D., M.P.H. LAB BLOOD NON ADD-ON Performing Organization Address City/[facility] Code Phon e Number [facility] [address] [place] [address] SUPPORT [facility] [place] [address] Laboratory Medicine and Pathology [address] [place] [address] Dr. [place] 25-Hydroxyvitamin D2 and D3 (09/30/2021 7:38 AM CDT) athologist Signature 25-Hydroxy D2 20 ng/mL 09/30/2021 [facility] 11:30 PM CDT 25-Hydroxy D3 <2.0 ng/mL 09/30/2021 [facility] 11:30 PM CDT 25-Hydroxy D 20 ng/mL 09/30/2021 [facility] Total 11:30 PM CDT Comment: ----REFERENCE VALUE---- 25-HYDROXY D TOTAL (D2+D3) Optimum level s in the healthy population are 20-50, patients with bone disease may benefit from higher levels within this r vinh. ----ADDITIONAL INFORMATION---- This test was developed and its performa nce characteristics determined by [facility] in a manner consistent with CLIA requirements. This test has not been cleared or approved by the [place] and Drug Administration. Specimen Anatomical Collection Method Collection Time Receive d Time (Source) Location / / Volume Laterality Blood (Blood, 09/30/2021 7:38 AM 10/01/19 22 Venous) CDT 10:21 AM CDT Warren Hernández M.D., M.P.H. LAB BLOOD ADD-ON Performing Organization Address City/[facility] Phon e Number [facility] [address] [place], [place] [address] [place], [place] [address] [address] Laboratory Medicine and Pathology [address] [place] Vitamin E Level (09/30/2021 7:38 AM CDT) athologist Signature A-Tocopherol, 6.3 5.5 - 17.0 10/01/2021 [facility] Vitamin E mg/L 1:44 PM CDT Comment: ----ADDITIONAL INFORMATION---- This test was developed and its performa nce characteristics determined by [facility] in a manner consistent with CLIA requirements. This test has not been cleared or approved by the [place] d and Drug Administration. Specimen Anatomical Collection Method Collection Time Receive d Time (Source) Location / / Volume Laterality Blood (Blood, 09/30/2021 7:38 AM 10/01/19 22 Venous) CDT 11:15 AM CDT Warren Hernández M.D., M.P.H. LAB BLOOD NON ADD-ON Performing Organization Address City/[facility] Code Phon e Number [facility] [address] [place], [place] [address] [facility] [place] [address] Laboratory Medicine and Pathology [address] [place] T4 (Thyroxine), Free (09/30/2021 7:38 AM CDT) P athologist Signature T4 (Thyroxine), 1.3 0.9 - 1.7 09/30/2021 [facility] Free, S ng/dL 10:47 AM CDT Specimen Anatomical Collection Method Collection Time Receive d Time (Source) Location / / Volume Laterality Blood (Blood, 09/30/2021 7:38 AM 10/01/19 22 8:07 Venous) CDT AM CDT Warren Hernández M.D., M.P.H. LAB BLOOD ADD-ON Performing Organization Address City/[facility] Phon e Number [facility] - [address] [place], [place] [address] [address] [place] [address] (ABNORMAL) Parathyroid Hormone (PTH) (09/30/2021 7:38 AM CDT) [facility] Method Time Signature Parathyroid <6.0 (L) 15 - 65 09/30/2021 [facility] Hormone (PTH), S pg/mL 10:47 AM CDT Specimen Anatomical Collection Method Collection Time Receive d Time (Source) Location / / Volume Laterality Blood (Blood, 09/30/2021 7:38 AM 10/01/19 22 8:07 Venous) CDT AM CDT Warren Hernández M.D., M.P.H. LAB BLOOD ADD-ON Performing Organization Address City/State/[facility] Code Phon e Number [facility] - [address] [place], [place] [address] [place] [address] (ABNORMAL) GGT (Gamma-Glutamyltransferase) (09/30/2021 7:38 AM CDT) [facility] Method Time Signature Gamma 52 (H) 5 - 36 09/30/2021 [facility]TL Glutamyltransferase U/L 10:47 AM (GGT), S CDT Specimen Anatomical Collection Method Collection Time Receive d Time (Source) Location / / Volume Laterality Blood (Blood, 09/30/2021 7:38 AM 10/01/19 8:07 Venous) CDT AM CDT Warren Hernández M.D., M.P.H. LAB BLOOD ADD-ON Performing Organization Address City/[facility] Phon e Number [facility] - [address] [place], [place] [address] [facility] [place] [address] [facility] [address] [facility] Folate (09/30/2021 7:38 AM CDT) P athologist Signature Folate, S >20.0 >=4.0 mcg/L 09/30/2021 9:31 DTL AM CDT Specimen Anatomical Collection Method Collection Time Receive d Time (Source) Location / / Volume Laterality Blood (Blood, 09/30/2021 7:38 AM 10/01/19 22 8:07 Venous) CDT AM CDT Warren Hernández M.D., M.P.H. LAB BLOOD ADD-ON Performing Organization Address City/[facility] Phon e Number [facility] - [address] [place], [place] [address] [place], [place] [id number] [place] [address] Syphilis IgG w/ Reflex, EIA, S (09/30/2021 7:37 AM CDT) Patholo gist Method Time Signature Syphilis IgG Nonreactive Nonreactive 10/01/2021 [facility] w/ Reflex, 3:00 PM CDT EIA, S Comment: No serologic evidence of infection with T. pallidum (syphilis). ??Repeat testing may be cons idered in patients with suspected acute or primary syphilis in 2-4 weeks. For additional information on interpreta tion of the syphilis reverse algorithm and resul ts, see: [email or web address] df Specimen Anatomical Collection Method Collection Time Receive d Time (Source) Location / / Volume Laterality Blood (Blood, 09/30/2021 7:37 AM 10/01/19 22 Venous) CDT 10:12 AM CDT Warren Hernández M.D., M.P.H. LAB MICROBIOLOGY - BLO OD ORDERABLES Performing Organization Address City/[facility] Phon e Number [place] [phone] [place] [address] [facility] [place] [address] Laboratory Medicine and Pathology [address] [place] [address] Dr. [place]AP[place] HSV Types 1 and 2 Ab, IgG (09/30/2021 7:37 AM CDT) athologist Signature HSV Type 1 Ab, Negative Negative 09/30/2021 [facility] IgG, S 11:25 AM CDT HSV Type 2 Ab, Negative Negative 09/30/2021 [facility] IgG, S 11:25 AM CDT Specimen Anatomical Collection Method Collection Time Receive d Time (Source) Location / / Volume Laterality Blood (Blood, 09/30/2021 7:37 AM 10/01/19 22 Venous) CDT 10:37 AM CDT Warren Hernández M.D., M.P.H. LAB MICROBIOLOGY - BLO OD ORDERABLES Performing Organization Address City/[facility] Phon e Number [address] [place] [address] [place] [address] Laboratory Medicine and Pathology [address] [place] [address] Dr. [place] Varicella-Zoster Ab, IgM and IgG (09/30/2021 7:37 AM CDT) athologist Signature Varicella-Zost Positive 09/30/2021 [facility] er Ab, IgG, S 11:25 AM CDT Comment: Results suggest response to immunization or prior exposure to the virus. ----REFERENCE VALUE---- Vaccinated: Positive (>=1.1 AI) Unvaccinated: Negative (<=0.8 AI) Varicella IgG Antibody Index 3.9 09/30/2021 11:25 AM CDT [facility] Varicella-Zoster Ab, IgM, S Negative Negative 10/01/2021 2 :23 PM CDT [facility] Specimen Anatomical Collection Method Collection Time Receive d Time (Source) Location / / Volume Laterality Blood (Blood, 09/30/2021 7:37 AM 10/01/19 22 Venous) CDT 10:37 AM CDT Warren Hernández M.D., M.P.H. LAB MICROBIOLOGY - BLO OD ORDERABLES Performing Organization Address [facility] Phon e Number [place] [phone] [place] [address] [address] [facility] [place] [address] Laboratory Medicine and Pathology [address] [place] [address] Dr. [place] Cytomegalovirus Ab, IgM and IgG (09/30/2021 7:37 AM CDT) [facility] Method Time Signature Cytomegalovirus Ab, Negative Negative 09/30/2021 [facility] IgM, S 11:25 AM CDT Cytomegalovirus Ab, Negative Negative 09/30/2021 [facility] IgG, S 11:25 AM CDT Specimen Anatomical Collection Method Collection Time Receive d Time (Source) Location / / Volume Laterality Blood (Blood, 09/30/2021 7:37 AM 10/01/19 22 Venous) CDT 10:37 AM CDT Warren Hernández M.D., M.P.H. LAB MICROBIOLOGY - BLO OD ORDERABLES Performing Organization Address [facility] Phon e Number [address] [place] [address] 05 [place] [address] Laboratory Medicine and Pathology [address] [place] [address] Dr. [place] EBV Ab Profile (09/30/2021 7:37 AM CDT) [facility] Method Time Signature EBV VCA IgM Ab, S Negative Negative 09/30/2021 [facility] 11:25 AM CDT EBV VCA IgG Ab, S Positive Negative 09/30/2021 [facility] 11:25 AM CDT EBNA Ab, S Positive Negative 09/30/2021 [facility] 11:25 AM CDT Interpretation SEE COMMENT 09/30/2021 [facility] 11:25 AM CDT Comment: Results suggest past infection. ----ADDITIONAL INFORMATION---- In most populations, at least 90% of the adult population will have been infected with EBV sometim e in the past and therefore, will be positive for anti-VCA /IgG and anti- EBNA. Antibodies to EBNA develop 6-8 wee ks after primary infection and remain present for life. ? ?Presence of VCA/ IgM antibodies indicates recent primary infection with EBV. Specimen Anatomical Collection Method Collection Time Receive d Time (Source) Location / / Volume Laterality Blood (Blood, 09/30/2021 7:37 AM 10/01/19 22 Venous) CDT 10:37 AM CDT Warren Hernández M.D., M.P.H. LAB MICROBIOLOGY - BLO OD ORDERABLES Performing Organization Address [facility] Phon e Number [address] [place] [address] [place] [address] Laboratory Medicine and Pathology [address] [place] [address] Dr. [place] Measles (Rubeola) Ab, IgG (09/30/2021 7:37 AM CDT) athologist Signature Measles Positive 09/30/2021 [facility] (Rubeola) Ab, 11:25 AM CDT IgG, S Comment: Results suggest response to immunization or prior exposure to the virus. ----REFERENCE VALUE---- Vaccinated: Positive (>=1.1 AI) Unvaccinated: Negative (<=0.8 AI) Measles IgG Antibody Index >8.0 09/30/2021 11 :25 AM CDT [facility] Specimen Anatomical Collection Method Collection Time Receive d Time (Source) Location / / Volume Laterality Blood (Blood, 09/30/2021 7:37 AM 10/01/19 22 Venous) CDT 10:37 AM CDT Warren Hernández M.D., M.P.H. LAB MICROBIOLOGY - BLO OD ORDERABLES Performing Organization Address [facility] Phon e Number [address] [place] [address] [place] [address] Laboratory Medicine and Pathology [address] [place] [address] Dr. [place] (ABNORMAL) Zinc (09/30/2021 7:37 AM CDT) athologist Signature Zinc, S 0.39 (L) 0.66 - 1.10 09/30/2021 [facility] mcg/mL 12:56 PM CDT Comment: ----ADDITIONAL INFORMATION---- This test was developed and its performa nce characteristics determined by [facility] in a manner consistent with CLIA requirements. This test has not been cleared or approved by the [place] and Drug Administration. Specimen Anatomical Collection Method Collection Time Receive d Time (Source) Location / / Volume Laterality Blood (Blood, 09/30/2021 7:37 AM 10/01/19 22 Venous) CDT 10:12 AM CDT Warren Hernández M.D., M.P.H. LAB BLOOD NON ADD-ON Performing Organization Address [facility] Phon e Number [facility] [address] [place] [address] [place], [place] [address]. [place] [address] Laboratory Medicine and Pathology [address] [place] [address] Dr. [place] Toxoplasma gondii Antibody, IgG (09/30/2021 7:37 AM CDT) Analysis Performed At Patho logist Time Signature Toxoplasma Ab, Negative Negative 09/30/2021 [facility] IgG, S 11:25 AM CDT Toxoplasma IgG <3 IU/mL 09/30/2021 [facility] Value 11:25 AM CDT Comment: ----REFERENCE VALUE---- <=9 IU/mL (Negative) 10-11 IU/mL (Equivocal) >=12 IU/mL (Positive) Specimen Anatomical Collection Method Collection Time Receive d Time (Source) Location / / Volume Laterality Blood (Blood, 09/30/2021 7:37 AM 10/01/19 22 Venous) CDT 10:37 AM CDT Warren Hernández M.D., M.P.H. LAB MICROBIOLOGY - BLO OD ORDERABLES Performing Organization Address [facility] Phon e Number [place] [phone] [place] [address] [place] [address] [place] [address] Laboratory Medicine and Pathology [address] [place] [address] Dr. [place] Rubella Antibodies, IgG (09/30/2021 7:37 AM CDT) P athologist Signature Rubella Ab, Positive 09/30/2021 [facility] IgG, S 11:25 AM CDT Comment: Results suggest response to immunization or prior exposure to the virus. ----REFERENCE VALUE---- Vaccinated: Positive (>=1.0 AI) Unvaccinated: Negative (<=0.7 AI) Rubella IgG Antibody Index 5.9 09/30/2021 11 :25 AM CDT [facility] Specimen Anatomical Collection Method Collection Time Receive d Time (Source) Location / / Volume Laterality Blood (Blood, 09/30/2021 7:37 AM 10/01/19 22 Venous) CDT 10:37 AM CDT Warren Hernández M.D., M.P.H. LAB MICROBIOLOGY - BLO OD ORDERABLES Performing Organization Address [facility] Phon e Number [facility] [address] [place] [facility] 05 [facility] [place] [address] Laboratory Medicine and Pathology [address] [place] [address] Dr. [place] Mumps Ab, IgG (09/30/2021 7:37 AM CDT) athologist Signature Mumps Ab, IgG, Positive 09/30/2021 [facility] S 11:25 AM CDT Comment: Results suggest response to immunization or prior exposure to the virus. ----REFERENCE VALUE---- Vaccinated: Positive (>=1.1 AI) Unvaccinated: Negative (<=0.8 AI) Mumps IgG Antibody Index 6.1 09/30/2021 11:2 5 AM CDT [facility] Specimen Anatomical Collection Method Collection Time Receive d Time (Source) Location / / Volume Laterality Blood (Blood, 09/30/2021 7:37 AM 10/01/19 22 Venous) CDT 10:37 AM CDT Warren Hernández M.D., M.P.H. LAB MICROBIOLOGY - BLO OD ORDERABLES Performing Organization Address [facility] Phon e Number [address] [place] [address] [place] [address] Laboratory Medicine and Pathology [address] [place] [address] Dr. CHAPPELL from Last 3 Months Insurance Payer Benefit Plan / Subscriber ID Effective Phone Address T ype Group Dates [facility] [id number] 2018-Prese [address] [address] Medicaid O [employer] RESTRICTED PLAN nt [facility] [id number] ([address]) [address] [place] [phone] Advance Directives For more information, please contact: [phone] Latest Code Status on File Code Status Date Activated Date Inactivated Comments Full Code 11/12/2021 6:52 AM 11/26/2021 3:46 PM Full Code: Not Discussed Due to: Patient does not have the capacity Full Code 11/09/2021 5:51 PM 11/11/2021 4:25 PM Full Code: Not Discussed Due to: Not medically appropriate Full Code 07/26/2021 8:32 AM 07/27/2021 5:44 PM Full Code: Discussed Full Code 03/12/2021 5:37 AM 03/24/2021 2:24 PM Full Code: Not Discussed Due to: Patient does not have the capacity Care Teams Child Care Lead Teacher Relationship Specialty Start Date End Date Ana Red P.A.-C. PCP - General Internal Medicine 12/01/[address] [place] [address] [place] [phone] [facility] [place] lab 08/25/21 Ervin Schroeder MD Referring Provider Family Medicine 03/24/[address] [place] [address] [place] [id number]
--- OUTSIDE RECORDS SUMMARY | 2021-12-28 23:24 | XMS_ITS | Encounter Summary ---
:1990 Author Organization [facility] Address [address] [place] [address] Care Team Providers Name Role Phone Ana Red P.A.-C. Primary Care Provider [phone] Encounter Details Date Type Department Care Team Description 12/27/2021 Patient Self-Triage [facility] Symptom Shoe Caser, Provider Social History Tobacco Use Types Packs/Day Years Used Date Smoking Tobacco: Former Cigarettes 0.3 11 01/31 - 10/20/2021 Passive Smoke Exposure: Never Smokeless Tobacco: Never Comments: 2-3 cpd since [...] do you attend anglican or Never 2021 baptist services? 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 [address] [place] [phone] (Gwendolyn rahman) 01/12/2022 Appointment Laboratory Medicine Matthew Jerome M.B.BSumaS., M.D. [address] [place] [address] (Gwendolyn rk) 01/12/2022 Appointment Laboratory Medicine Adeline Frazier M.D., Ph.D. [address] [place] [phone] (Gwendolyn rahman) 01/13/2022 Telemedicine Transplant Joel Tan L.I.C.S.W., M.S. W. [address] [place] [phone] (Wo rk) 01/13/2022 Telemedicine Transplant Matthew Jerome M.B.B.S., M.D. [address] [place] [phone] (Wo rk) 01/13/2022 Telemedicine Transplant Adeline Frazier M.D., Ph.D. [address] [place] [phone] (Wo rk) 01/28/2022 Office Visit Gastroenterology and Matthew Jerome, Hepatology Tyrell, MCee. [address] [place] [address] (Wo rk) Scheduled Procedures Name Priority [...] documented as of this encounter Care Teams Aircraft Engineer Relationship Specialty Start Date End Date Ana Red P.A.-C. PCP - General Internal Medicine 12/01/[address] [place] [phone] [facility] [place] [facility] 08/25/21 Ervin Schroeder MD Referring Provider Family Medicine 03/24/[address] [place] [phone] documented as of this encounter
--- OUTSIDE RECORDS SUMMARY | 2021-12-28 23:24 | XMS_ITS | Encounter Summary ---
:1990 Author Organization [facility] Address [address] [place] [address] Care Team Providers Name Role Phone Ana Red P.A.-C. Primary Care Provider [phone] Reason for Referral Outpatient (Routine) - Authorized Specialty Diagnoses / Procedures Referred By Contact Refer red To Contact Diagnoses Ascites Chronic Matthew Jerome M.B.B.S., [facility] Procedures US Paracentesis with Imaging Guidance Lilian [address] [place] [address] Referral ID Status Reason Start Date Expiration Date Visits V isits Requested Authorized [id number] Authorized 12/11/2021 12/11/2022 1 1 Outpatient (Routine) - Authorized Specialty Diagnoses / Procedures Referred By Contact Refer red To Contact Diagnoses Ascites Chronic Matthew Jerome M.B.BGraeme, [facility] [place] [facility] Procedures US Paracentesis with Imaging Guidance M.D. [address] [place] [phone] Referral ID Status Reason Start Date Expiration Date Visits V isits Requested Authorized [id number] Authorized 12/11/2021 12/11/2022 1 1 Outpatient (Routine) - Authorized Specialty Diagnoses / Procedures Referred By Contact Refer red To Contact Diagnoses Ascites Chronic Matthew Jerome M.B.B.S., [facility] Procedures US Paracentesis with Imaging Guidance M.D. [address] [place] [address] Referral ID Status Reason Start Date Expiration Date Visits V isits Requested Authorized [id number] Authorized 12/11/2021 12/11/2022 1 1 Outpatient (Routine) - Authorized Specialty Diagnoses / Procedures Referred By Contact Refer red To Contact Diagnoses Ascites Chronic Matthew Jerome M.B.B.S., [facility] Procedures US Paracentesis with Imaging Guidance M.DSuma [address] [place] [phone] Referral ID Status Reason Start Date Expiration Date Visits V isits Requested Authorized [id number] Authorized 12/11/2021 12/11/2022 1 1 Encounter Details Date Type Department Care Team Description 12/11/2021 Clinical Communication Department of [facility] [place] [phone] [address] [place] [phone] Social History Tobacco Use Types Packs/Day Years [...] or relatives? How often do you attend mormon or Never 2021 sikhism services? Do you belong to any clubs or No 07/17/2021 organizations such as mormon groups, unions, fraternal or athletic groups, or [...] place to sleep or slept in a penitentiary (including now)? Education Answer Date Recorded What is the highest level of school Associate degree: ruth barker, 07/16/2021 you have completed or the highest technical, or vocational p rogram degree you have received? 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 Per nursing this is not something they have done in the past and she does not believe this is an option locally. Paracentesis orders x 4 have been pended for the patient and a standing order for albumin infusion. Please review orders and sign paracentesis orders and the infusion therapy plan for albumin infusion. Thank you! Telephone Encounter - Felicita Spicer L.P.N. - 12/11/2021 10:49 AM CDT ----- Message from Tyrell Zheng M.D. sent at 12/10/2021 6:02 PM CDT ----- Regarding: flavio Hello team Can you please place a few para orders for this patient, with the first one to be scheduled for end of next week? Please add the albumin therapy plan. Also, can you give radiology a call, and ask the para team if they ever use nitrous oxide briefly atthe start of the procedure to help the patient's anxiety? It seems they used it for her in [facility] last week and it worked very well for her. Otherwise she has significant anxiety from the procedure. Please let me know Thank you OM documented in this encounter Plan of Treatment Upcoming Encounters Date Type Specialty Care Team Description 01/07/2022 Office Visit Community Internal Medicine Ranjit Red P.A.-C. [address] [place] [phone] (Gwendolyn rahman) 01/12/2022 Appointment Laboratory Medicine Matthew Jerome M.B.B.S., M.D. [address] [place] [phone] (Gwendolyn rk) 01/12/2022 Appointment Laboratory Medicine Adeline Frazier M.D., Ph.D. [address] [place] [phone] (Wo rk) 01/13/2022 Telemedicine Transplant Joel Tan L.I.C.S.W., M.S. W. [address] [place] [phone] (Wo rk) 01/13/2022 Telemedicine Transplant Matthew Jerome M.B.B.S., M.D. [address] [place] [phone] (Wo rk) 01/13/2022 Telemedicine Transplant Adeline Frazier M.D., Ph.D. [address] [place] [address] [phone] (Wo rk) 01/28/2022 Office Visit Gastroenterology and Matthew Jerome, Hepatology JoshuaBSumaB.SSuma, M.D. [address] [place] [phone] (Wo rk) Scheduled Orders Name Type Priority Associated Order Schedule Diagnoses US Paracentesis with Imaging RAD - Routine (most Ascites Chron ic Expected: Imaging Guidance inpatients and all 12/18, outpatients) Expires: 03/13/2023 US Paracentesis with Imaging RAD - Routine (most Ascites Chron ic Expected: Imaging Guidance inpatients and all 01/01, outpatients) Expires: 03/13/2023 US Paracentesis with Imaging RAD - Routine (most Ascites Chron ic Expected: Imaging Guidance inpatients and all 01/15, outpatients) Expires: 03/13/2023 US Paracentesis with Imaging RAD - Routine (most Ascites Chron ic Expected: Imaging Guidance inpatients and all 01/29, outpatients) Expires: 03/13/2023 Scheduled Procedures Name Priority Associated Diagnoses Date/Time ESOPHAGOGASTRODUODENOSCOPY Cirrhosis Alc oholic (HCC) Hypertension Portal (HCC) ESOPHAGOGASTRODUODENOSCOPY Cirrhosis Alc oholic (HCC) Ascites Anemia Macrocytic Thrombocytopenia (HC C) Deficiency Coagulation Acquired (HCC) documented as of this encounter Visit Diagnoses Diagnosis Ascites Chronic - Primary documented in this encounter Additional Health Concerns Assessment Noted Time PHQ-9 Depression Total Score: 10 10/06/2021 5:00 PM CD T documented as of this encounter Care Teams Test Baker Relationship Specialty Start Date End Date Ana Red P.A.-C. PCP - General Internal Medicine 12/01/[address] [place] [phone] [facility] 08/25/21 Ervin Schroeder MD Referring Provider Family Medicine 03/24/[address] [place] [address] [phone] documented as of this encounter
--- OUTSIDE RECORDS SUMMARY | 2021-12-28 23:24 | XMS_ITS | Encounter Summary ---
:1990 Author Organization [facility] Address [address] [place] [address] Care Team Providers Name Role Phone Ana Red P.A.-C. Primary Care Provider [phone] Reason for Visit Reason Comments Back Pain Encounter Details Date Type Department Care Team Description 12/19/2021 - Emergency [facility] Katrin Gonzalez M.D., Ph.D. [address] [place] [phone] Pain Back (Primary 12/20/2021 Emergency Department Migue Garcia Jr., M.D. [address] [place] [phone] Dx) [address] [place] [phone] Social History Tobacco Use Types Packs/Day Years [...] or relatives? How often do you attend mu-ism or Never 2021 mandaen services? Do you belong to any clubs or No 07/17/2021 organizations such as mu-ism groups, unions, fraternal or athletic groups, or [...] at Date Recorded Female 04/12/2021 7:39 PM [employer]USTRIAL [employer]PER[employer] documented as of this encounter Last Filed Vital Signs Vital Sign Reading Time Taken Comments Blood Pressure 111/58 12/20/2021 7:00 AM CDT Pulse 91 12/20/2021 7:00 AM CDT Temperature 36.8 ??C (98.2 ??F) 12/20/2021 2:33 AM CDT Respiratory Rate 20 12/20/2021 2:07 AM CDT Oxygen Saturation 96% 12/20/2021 7:00 AM CDT Inhaled Oxygen Concentration - - Weight 57.4 kg (126 lb 8.7 oz) 12/19/2021 11:57 PM CDT Height - - Body Mass Index 22.71 12/10/2021 2:51 PM CDT documented in this encounter Discharge Instructions Discharge InstructionsHarinder Nguyễn M.D. - 12/20/2021 7:29 AM CDT - You can use over the counter ibuprofen for pain management and lidocaine patches. Please avoid Tylenol. You can also use heat and ice for pain management. - Activity as tolerated. - Please follow up with primary care physician if symptoms do not improve. - Continue to drink plenty of water. - Please return to the emergency department of symptoms worsen such as numbness/tingling in legs, loss of bowel and/or bladder function. documented in this encounter Medications at Time of Discharge Medication Sig Dispensed Refills Start Date End Date diclofenac sodium Apply 2 g topically 20 g 0 2 (VOLTAREN) 1 % gel 4 (four) times a day. Apply to painful area on skin. ergocalciferol (DRISDOL) Take 50,000 Units by 0 1 06/01/2020 50,000 Unit capsule mouth once a week. folic acid 1 mg tablet Take 1 mg by mouth 0 daily. furosemide (LASIX) 20 mg Take 2 tablets (40 180 tablet 3 01/202212/10/2022 tabletIndications: mg total) by mouth Cirrhosis Alcoholic daily. (HCC), Hypertension Portal (HCC), Thrombocytopenia (HCC), Abnormal Liver Function Test, Ascites Chronic lactulose (CHRONULAC) 10 Take 15 mL (10 g 1350 mL 11 12/1012/10/2022 gram/15 mL total) by mouth 3 solutionIndications: (three) times a day. Cirrhosis Alcoholic Titrate to 3 soft (HCC), Hypertension bowel movements Portal (HCC), daily Thrombocytopenia (HCC), Abnormal Liver Function Test, Hepatic Encephalopathy Without Coma (HCC) levonorgestreL (MIRENA) 1 each by 0 20 mcg/24 hours (7 yrs) intrauterine route 52 mg IUD continuously. magnesium oxide (MAG-OX) Take 1 tablet (400 60 tablet 1 06/2021 400 mg (241.3 mg mg total) by mouth 2 magnesium) tablet (two) times a day before breakfast and dinner. ondansetron ODT Take 1 tablet by 0 04/23/2021 (ZOFRAN-ODT) 8 mg mouth 3 (three) disintegrating tablet times a day as needed. pantoprazole (PROTONIX) Take 1 tablet (40 mg 30 tablet 1 40 mg EC tablet total) by mouth every morning before breakfast. rifAXIMin (XIFAXAN) 550 Take 1 tablet (550 180 tablet 3 12/0112/10/2022 mg tabletIndications: mg total) by mouth 2 Cirrhosis Alcoholic (two) times a day. (HCC), Hypertension Portal (HCC), Thrombocytopenia (HCC), Abnormal Liver Function Test, Hepatic Encephalopathy Without Coma (HCC) spironolactone Take 2 tablets (100 180 tablet 3 12/10/2021 0 12/10/2022 (ALDACTONE) 50 mg mg total) by mouth tabletIndications: daily. Cirrhosis Alcoholic (HCC), Hypertension Portal (HCC), Thrombocytopenia (HCC), Abnormal Liver Function Test, Ascites Chronic sulfamethoxazole-trimeth Take 1 tablet by 90 tablet 3 12/1012/10/2022 oprim (BACTRIM DS) mouth daily. Take 1 800-160 mg per tablet daily for tabletIndications: Cirrhosis Alcoholic (HCC), Hypertension Portal (HCC), Thrombocytopenia (HCC), Abnormal Liver Function Test, Ascites Chronic thiamine (VITAMIN B1) Take 100 mg by mouth 0 100 mg tablet daily. traZODone (DESYREL) 50 Take 1 tablet (50 mg 10 tablet 0 08/2021 mg tablet total) by mouth at bedtime as needed for sleep for up to 10 doses. vitamin A 3,000 mcg Take 1 capsule 50 capsule 0 10/08/2021 1 (10,000 Unit) (3,000 mcg total) by capsuleIndications: mouth 3 (three) Cirrhosis Alcoholic times a week for 50 (HCC), Deficiency doses. Vitamin A zinc sulfate (ZINCATE) Take 1 capsule (220 28 capsule 0 06/202112/30/2021 220 (50 mg zinc) capsule mg total) by mouth daily with breakfast for 28 days. documented as of this encounter ED Notes Ted Gonzalez M.D., Ph.D. - 12/20/2021 7:40 AM CDT I have personally seen and examined this patient. I have fully participated in the care of this patient. I have reviewed all clinical information including history, physical exam, orders, and plan. I agree with the note of the resident. IMPRESSION AND PLAN Patient is a medically complicated 31-year-old woman with history of liver failure currently undergoing evaluation for possible transplantation who presents with low back pain. The patient has had somemedication changes recently including stopping pain medication and medical marijuana. She has not had any known injury to the low back area but localizes her pain to the right sacroiliac joint. It is tender on exam and with any movement. There is no CVA tenderness or abdominal pain and there is no other pelvic symptoms. Clinically, I think this is musculoskeletal and it could be partly due to metabolic or inflammatory abnormalities. I do not see any signs of infection or bleeding at this time. We got blood work which shows some slightly worsening hyponatremia and slightly increased creatinine though still normal range. Understanding that she is at risk for ascites I think she is intravascular fluid down and would recommend some gentle hydration. We did contact the liver transplant team given her e valuation by them and they agree with our plan. I anticipate discharge thereafter with follow-up andreturn instructions for any worsening or worrisome signs or symptoms. Final Diagnoses: as of 12/20/21 0740 Pain Back Ted Gonzalez M.D., Ph.D. 12/20/21 223 T Harinder Nguyễn M.D. - 12/20/2021 2:40 AM CDT SUBJECTIVE CHIEF COMPLAINT/REASON FOR VISIT Back Pain HISTORY OF PRESENT ILLNESS Catia Carias is a 31-year-old female with hepatic failure and ascites, patent foramen ovale,anxiety, mood disorder, chronic pancreatitis, and chronic pain syndrome presents emergency department with chief complaint of right lower back pain. Patient stated the pain began around 1600 on 12/19 when she was making her bed. She stated that her right lower back began to spasm. She described the pain as sharp and continuous pain that she rates to be a 7 of 10. She is the pain is located in her right sacroiliac joint region pain is worse with movement. She reports taking Flexeril emergency department which gave her some relief of pain but not complete. Patient reports during the onset of her pain s he did have some nausea with vomiting from. Patient denies any history trauma or injuries to the area. Patient reports he is tried heating to the area which did not relieve pain as well. Patient deniesany loss of bowel or bladder function, numbness or tingling in her lower extremities that is unusualneuropathy due to her cirrhosis, denies saddle anesthesia, denies history of kidney stone, dysuria, chills, lightheaded, dizziness, diarrhea, and constipation. Patient has known allergies to azithromycin, gabapentin, and ciprofloxacin. She states her abdomen is is distended due to ascites and for her home nursing abdomen measurements have not changed in last week. Patient has been sober from alcohol for 2 years. Patient is currently not on the transplant list buthas been evaluated. She has been 2 weeks sober from marijuana and opiate medications. REVIEW OF SYSTEMS Constitutional: Negative for activity change, appetite change, fatigue and fever. HENT: Negative for congestion, sore throat and trouble swallowing. Eyes: Negative for photophobia and visual disturbance. Respiratory: Negative for cough, chest tightness, shortness of breath and wheezing. Gastrointestinal: Positive for abdominal distention (Patient has ascites which she receives paracentesis for. Per patient's home nursing her abdominal distention has not changed in the last week.), nausea and vomiting (From back pain). Negative for abdominal pain, constipation and diarrhea. Endocrine: Negative. Genitourinary: Negative for flank pain, frequency, hematuria and urgency. Musculoskeletal: Positive for back pain. Negative for joint swelling, neck pain, neck stiffness and extremity pain. Skin: Negative for pallor, rash and wound. Allergic/Immunologic: Negative for environmental allergies, food allergies and immunocompromised state. Neurological: Negative for dizziness, weakness, light-headedness and headaches. Hematological: Negative for adenopathy. Does not bruise/bleed easily. Psychiatric/Behavioral: Negative. OBJECTIVE Initial Vitals Temperature Pulse Rate Heart Rate Resp Rate Blood Pressure SpO2 12/20/21 0000 12/20/21 0000 -- 12/20/21 0000 12/20/21 0000 12/20/21 0000 36.7 ??C 99 (!) 26 109/60 98 % Pain Score 12/20/21 0235 7 PHYSICAL EXAMINATION Constitutional: Nursing note and vitals reviewed. She appears not lethargic. Eyes: EOM are normal. Pupils are equal, round, and reactive to light. Periorbital area normal appearing. Jaundice present Neck: Neck supple. No thyromegaly present. Cardiovascular: Regular rhythm. No tachycardia present. Exam reveals no gallop. Murmur heard.Edema: no edema noted Pulmonary/Chest: Effort normal and breath sounds normal. No stridor. She has no wheezes. She has no rhonchi. She has no rales. Abdominal: Soft. exhibits distension.exhibits no mass. There is no abdominal tenderness. There is norebound and no guarding. Musculoskeletal: Cervical back: Neck supple. Right hip: Tenderness (Right SI joint) present. Normal range of motion. Normal strength. Comments: No costovertebral angle tenderness. Negative straight leg and ALISON test bilaterally. Neurological: Alert and oriented to person, place, and time. Skin: Skin is warm, intact and normal color. She is not diaphoretic. There is jaundice. Psychiatric: She has a normal mood and affect. Behavior is normal. Judgment and thought content normal. ASSESSMENT/PLAN IMPRESSION AND PLAN Catia Carias is a 31 y.o. female with hepatic failure and ascites, patent foramen ovale, anxiety, mood disorder, chronic pancreatitis and chronic pain syndrome who presents for the evaluation of right back pain/spasm. On arrival to the ED, the patient is hemodynamically stable. The patient's physical exam is notable for tenderness in the right sacroiliac joint area, abdominal distention, jaundice and murmur. Differential diagnosis includes, but is not limited to muscle spasm, nephrolithiasis, pyelonephritis, and abscess. Due to no CVA tenderness, there is low concern for nephrolithiasis/pyelonephritis and do the patient not having a fever or signs of infection there is a low concern for abscess. For symptomatic relief, we will provide Flexeril and Toradol. Will proceed by obtaining labs including CBC with differential, basic metabolic panel, lipase, hepatic panel, lactate, hCG and urinalysis. Final disposition pending results of workup and patient's ED course. DIFFERENTIAL DIAGNOSIS Muscle spasm Nephrolithiasis Pyelonephritis Abscess ED Course as of 12/20/21 0731 Sat Dec 20, 2021 0348 CBC with Differential, Blood(!): Hemoglobin 8.0(!) Hematocrit 23.3(!) Erythrocytes 2.14(!) MCV 108.9(!) RBC Distrib Width 13.2 Platelet Count 54(!) White Blood Cell Count 7.5 Neutrophils 5.98 Lymphocytes 0.83(!) Monocytes 0.64 Eosinophils <0.03 Basophils 0.05 0348 Basic Metabolic Panel(!): Potassium, P 5.1 Sodium, P 130(!) Chloride, P 100 Bicarbonate, P 17(!) Anion Gap, P 13 BUN (Blood Urea Nitrogen), P 16 Creatinine, P 1.06(!) eGFR-Black/ 81 eGFR Non-Black/ 70 Calcium, Total, P 8.9 Glucose, P 143(!) 0531 Hepatic Function Panel(!): Bilirubin, Total, S 10.2(!) Bilirubin, Direct, S 5.0(!) Aspartate Aminotransferase (AST), S 86(!) Alanine Aminotransferase (ALT), S 41 Alkaline Phosphatase, S 294(!) Albumin, S 3.4(!) Protein, Total, S 5.6(!) 0531 hCG (Human Chorionic Gonadotropin), Quantitative, : HCG, Quantitative, , P 0.5 0531 Lipase: Lipase, S 36 0531 Urinalysis with Microscopic: Urine, Midstream: Source Urine, Urine, Midstream Color, U Yellow Clarity Clear Comment Micro done on <10 mL 0639 Patient has been evaluated for liver transplant, but is not on the transplant list. Patient being given a liter of saline and will most likely be discharged. 0715 Patient is stable for discharge. Discussed the use over the counter ibuprofen for pain management and lidocaine patches. Avoiding Tylenol. Using heat and ice for pain management. Activity as tolerated. Follow up with primary care physician if symptoms do not improve. Continue to drink plenty of water. And return to the emergency department of symptoms worsen such as numbness/tingling in legs, loss of bowel and/or bladder function. Final Diagnoses: as of 12/20/21 0731 Pain Back Delma, Harinder R, M.D. Resident 12/20/21 0732 Benja Rosado R.N. - 12/20/2021 12:03 AM CDT Pt complains of lower back spasms since 1600 today. Denies trauma or other symptoms. History of liver failure currently on the liver transplant list. Gets paracentesis frequently last one was 2 weeks ago however at home nurse states her abd measurement was the same yesterday as last week. Denies new SOB, worsening abd swelling etc. Benja Rosado R.N. 12/20/21 0004 documented in this encounter Plan of Treatment Upcoming Encounters Date Type Specialty Care Team Description 01/07/2022 Office Visit [facility] Ranjit Red P.A.-C. [address] [place] [phone] (Gwendolyn rahman) 01/12/2022 Appointment Laboratory Medicine Matthew Jerome M.B.B.S., M.D. [address] [place] [phone] (Gwendolyn rahman) 01/12/2022 Appointment Laboratory Medicine Adeline Frazier M.D., Ph.D. [address] [place] [phone] (Gwendolyn rahman) 01/13/2022 Telemedicine Transplant Joel Tan L.I.C.S.W., M.S. W. [address] [place] [phone] (Gwendolyn rahman) 01/13/2022 Telemedicine Transplant Matthew Jerome M.B.B.S., M.Slick. [address] [place] [phone] (Wo rk) 01/13/2022 Telemedicine Transplant Adeline Frazier M.D., Ph.D. [address] [place] [phone] (Wo rk) 01/28/2022 Office Visit Gastroenterology and Matthew Jerome, Hepatology Lilian Santillan [address] [place] [phone] (Wo rk) Scheduled Procedures Name Priority Associated Diagnoses Date/Time ESOPHAGOGASTRODUODENOSCOPY Cirrhosis Alc oholic (HCC) Hypertension Portal (HCC) ESOPHAGOGASTRODUODENOSCOPY Cirrhosis Alc oholic (HCC) Ascites Anemia Macrocytic Thrombocytopenia (HC C) Deficiency Coagulation Acquired (HCC) documented as of this encounter Procedures Procedure Name Priority Date/Time Associated Comments Diagnosis HC URINALYSIS AUTO WO Routine 12/20/2021 4:20 AM Results for this MICRO CDT procedure are i n the results section. HC OSMOLALITY ASSAY STAT 12/20/2021 4:17 AM Re sults for this URINE CDT procedure are i n the results section. DIPSTICK, U STAT 12/20/2021 4:17 AM Results f or this CDT procedure are i n the results section. PH, RANDOM, U STAT 12/20/2021 4:17 AM Results for this CDT procedure are i n the results section. MICROSCOPIC MANUAL STAT 12/20/2021 4:17 AM Res ults for this CDT procedure are i n the results section. BACTERIAL CULTURE, STAT 12/20/2021 4:17 AM Res ults for this AEROBIC + SUSC, URINE CDT proced ure are in the results section. URINALYSIS WITH STAT 12/20/2021 4:17 AM Result s for this MICROSCOPIC CDT procedure are i n the results section. HEPATIC FUNCTION STAT 12/20/2021 3:36 AM Resul ts for this PANEL, S CDT procedure are i n the results section. CBC WITH STAT 12/20/2021 3:36 AM Results f or this DIFFERENTIAL, B CDT procedure ar e in the results section. HUMAN CHORIONIC STAT 12/20/2021 3:36 AM Result s for this GONADOTROPIN (HCG), CDT procedur e are in EDDI, the results section. LIPASE, S/P STAT 12/20/2021 3:36 AM Results f or this CDT procedure are i n the results section. LACTATE, B/P STAT 12/20/2021 3:36 AM Results f or this CDT procedure are i n the results section. BASIC METABOLIC STAT 12/20/2021 3:36 AM Result s for this PANEL, S/P CDT procedure are i n the results section. documented in this encounter Results Dipstick, POCT, Urine (12/20/2021 4:20 AM CDT) [facility] Method Time Signature Glucose, POCT, Negative Negative 12/20/2021 PCED U mg/dL 4:22 AM CDT Ketone, POCT, Negative Negative 12/20/2021 PCED U mg/dL 4:22 AM CDT Specific 1.020 1.005 - 12/20/2021 PCED [place], POCT, 1.030 4:22 AM CDT U Blood, [...] / Volume Laterality Urine 12/20/2021 4:20 AM 4:22 CDT AM CDT Unknown Provider LAB POCT ORDERABLES - DEVICE Performing Organization Address City/State/ZIP Code Phon e Number POC RST [facility] [address] [place] [address] OUTPATIENT LABS PCED [facility] [place] [address] Formerly [facility] [address] Dipstick, Urine (12/20/2021 4:17 AM CDT) [facility] gist Method Time Signature Hemoglobin, Negative Negative [...] M.D. LAB URINE ORDERABLES Performing Organization Address City/[facility] Phon e Number [facility] [address] pH, Random, Urine (12/20/2021 4:17 AM CDT) athologist Signature pH, Random, U 5.5 4.5 - 8.0 12/20/2021 DTL 5:17 AM CDT Specimen Anatomical Collection Method Collection Time Receive d Time (Source) Location / / Volume Laterality Urine 12/20/2021 4:17 AM 2 5:00 CDT AM CDT Harinder Nguyễn M.D. LAB URINE ORDERABLES Performing Organization Address City/State/[facility] Phon e Number [facility] [address] [place], [place] [address] [place] [address] Osmolality, Urine (12/20/2021 4:17 AM CDT) athologist Signature Osmolality, U 451 150 - 1150 12/20/2021 DTL mOsm/kg 5:17 AM CDT Specimen Anatomical Collection Method Collection Time Receive d Time (Source) Location / / Volume Laterality Urine 12/20/2021 4:17 AM 2 5:00 CDT AM CDT Harinder Nguyễn M.D. LAB URINE ORDERABLES Performing Organization Address City/[facility]/ZIP Code Phon e Number [facility] - [address] [place], [place] [address] [place] [address] [place], [place] [phone] [place] [address] Microscopic Manual (12/20/2021 4:17 AM CDT) P athologist Signature Microscopy Normal 12/20/2021 DTL 5:29 AM CDT Casts, Hyaline 1-3 /lpf 12/20/2021 DTL 5:29 AM CDT Specimen Anatomical Collection Method Collection Time Receive d Time (Source) Location / / Volume Laterality Urine 12/20/2021 4:17 AM 5:00 CDT AM CDT Harinder Nguyễn M.D. LAB URINE ORDERABLES Performing Organization Address City/[facility] Phon e Number [facility] - [address] Bacterial Culture, Aerobic + Susc, Urine (12/20/2021 4:17 AM CDT) [facility] [employer] Method Time Signature Urine Culture No growth 12/21/2021 DT after 1 day 8:03 AM CDT of incubation. Specimen Anatomical Collection Method Collection Time Receive d Time (Source) Location / / Volume Laterality Urine (Urine, 12/20/2021 4:17 AM 12/21/19 22 7:48 Midstream) CDT AM CDT Comment: Specimen Source Site: Urine Harinder Nguyễn M.D. LAB MICROBIOLOGY - GENERAL O RDERABLES Performing Organization Address City/[facility]/ZIP [facility] Phon e Number [facility] - [address] Urinalysis with Microscopic: Urine, Midstream (12/20/2021 4:17 AM CDT) Patholo gist Method Time Signature Source Urine, Urine, 12/20/2021 [...] M.D. LAB URINE ORDERABLES Performing Organization Address City/[facility] Phon e Number [facility] - [address] [place] [address] [address] [facility] Lactate (12/20/2021 3:36 AM CDT) P athologist Signature Lactate, P 1.8 0.5 - 2.2 12/20/2021 STMA mmol/L 3:54 AM CDT Specimen Anatomical Collection Method Collection Time Receive d Time (Source) Location / / Volume Laterality Blood (Blood, 12/20/2021 3:36 AM 12/21/19 3:41 Venous) CDT AM CDT Harinder Nguyễn M.D. LAB BLOOD NON ADD-ON Performing Organization Address City/State/ZIP [facility] Phon e Number [facility] - [address] [place] [address] [address] [facility] Lipase (12/20/2021 3:36 AM CDT) P athologist Signature Lipase, S 36 13 - 60 U/L 12/20/2021 4:45 DTL AM CDT Specimen Anatomical Collection Method Collection Time Receive d Time (Source) Location / / Volume Laterality Blood (Blood, 12/20/2021 3:36 AM 12/21/19 4:00 Venous) CDT AM CDT Harinder Nguyễn M.D. LAB BLOOD ADD-ON Performing Organization Address City/[facility] Phon e Number [facility] - [address] [place], [place] [phone] [place] [address] (ABNORMAL) Hepatic Function Panel (12/20/2021 3:36 AM CDT) [facility] Method Time Signature Bilirubin, Total, S [...] M.D. LAB BLOOD ADD-ON Performing Organization Address City/[facility] Phon e Number [facility] - [address] [place], [place] [phone] [place] [address] hCG (Human Chorionic Gonadotropin), Quantitative, (12/20/2021 3:36 AM CDT) P athologist Signature HCG, 0.5 <5 IU/L 12/20/2021 STMA Quantitative, 4:31 AM CDT , P Specimen Anatomical Collection Method Collection Time Receive d Time (Source) Location / / Volume Laterality Blood (Blood, 12/20/2021 3:36 AM 12/21/19 3:41 Venous) CDT AM CDT Harinder Nguyễn M.D. LAB BLOOD ADD-ON Performing Organization Address City/State/ZIP Code Phon e Number [facility] - [address] [place], [place] [address] [facility] [place] [address] Laboratories-[facility] [address] (ABNORMAL) Basic Metabolic Panel (12/20/2021 3:36 AM CDT) Analysis Performed At Patho logist [...] CDT eGFR-Black/Afri 81 >=60 12/20/2021 [facility] can [place] mL/min/BSA 4:08 AM CDT Comment: ----ADDITIONAL INFORMATION---- Estimated GFR calculated using the 2009 CKD_EPI creatinine equation. eGFR Non-Black/ 70 >=60 mL/min/BSA 4:08 AM CDT ST[facility] Comment: ----ADDITIONAL INFORMATION---- Estimated GFR calculated using the 2009 CKD_EPI creatinine equation. Calcium, Total, P 8.9 8.6 - 10.0 mg/dL 12/20/2021 4:08 AM CDT STMA Glucose, P 143 (H) 70 - 140 mg/dL 12/20/2021 4:08 AM CDT S TMA Specimen Anatomical Collection Method Collection Time Receive d Time (Source) Location / / Volume Laterality Blood (Blood, 12/20/2021 3:36 AM 12/21/19 3:41 Venous) CDT AM CDT Harinder Nguyễn M.D. LAB BLOOD ADD-ON Performing Organization Address City/State/ZIP Code Phon e Number [facility] - [facility] [address] [place], [place] [address] [place] [address] [facility] [address] [facility] (ABNORMAL) CBC with Differential, Blood (12/20/2021 3:36 AM CDT) [facility] gist Method Time Signature Hemoglobin 8.0 (L) 11.6 [...] Organization Address City/State/ZIP Code Phon e Number [facility] - [address] [place], [place] [address] [place] [address] [facility] [address] documented in this encounter Visit Diagnoses Diagnosis Pain Back - Primary documented in this encounter Administered Medications Inactive Administered Medications - up to 3 most recent administrations Medication Order MAR Action Action Date Dose Rate Site cyclobenzaprine tablet 10 mg Given 12/20/2021 12:26 AM CDT 10 mg (FLEXERIL) 10 mg, oral, Once, On 12/20/21 at 0016, For 1 dose ketorolac injection 15 mg (TORADOL) Given 12/20/2021 4:02 AM CDT 15 mg 15 mg, intravenous, Once, On 12/20/21 at 0349, For 1 dose, Adult IV push rate: Over 15 seconds. Peds IV push rate: Over 1 minute. 60 mg dose only for IM, not recommended for IV. NaCl 0.9 % bolus 1,000 mL New Bag 12/20/2021 6:42 AM CDT 1,000 mL 1000 mL/hr 1,000 mL, intravenous, at 1,000 mL/hr, Administer over 1 Hours, Once, On 12/20/21 at 0639, For 1 dose documented in this encounter Active and Recently Administered Medications Times are shown in CDT. Scheduled Medication Order 12/18/2021 12/19/2021 12/20/2021 cyclobenzaprine tablet 10 mg (FLEXERIL) (COMPLETED) 0026 (Given - Provider: Benja Rosado R.N.) 10 mg, oral, Once, On 12/20/21 at 0016, For 1 dose ketorolac injection 15 mg (TORADOL) (COMPLETED) 0402 (Given - Provider: Ramirez Castrejon III, R.N.) 15 mg, intravenous, Once, On 12/20/21 at 0349, For 1 dose, Adult IV push rate: Over 15 seconds. Peds IV push rate: Over 1 minute. 60 mg dose only for IM, not recommended for IV. 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 PCP - General Internal Medicine 12/01/[address] [place] [address] [place] [phone] [facility] [place] lab 08/25/21 Ervin Schroeder MD Referring Provider Family Medicine 03/24/[address] [place] [address] [place] [address] documented as of this encounter
--- OUTSIDE RECORDS SUMMARY | 2021-12-28 23:24 | XMS_ITS | Encounter Summary ---
:1990 Author Organization [facility] Address [address] [place] [address] Care Team Providers Name Role Phone Ana Red P.A.-C. Primary Care Provider [phone] Encounter Details Date Type Department Care Team Description 12/15/2021 Lab Department of Adeline Frazier Moderate Or Severe Use Disorder (Dependence) Uncomplicated (HCC); Laboratory Medicine and Lilian Gannon, Ph.D. Cannabis Use Unspecified Uncomplicated Pathology, [place] [address] [place] [address], in [facility] [phone] [place] [address] [place] [phone] Social History Tobacco Use Types Packs/Day Years [...] or relatives? How often do you attend advent or Never 2021 voodoo services? Do you belong to any clubs or No 07/17/2021 organizations such as advent groups, unions, fraternal or athletic groups, or [...] place to sleep or slept in a long term (including now)? Education Answer Date Recorded What is the highest level of school Associate degree: ruth barker, 07/16/2021 you have completed or the highest technical, or vocational p jonnyram degree you have received? 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 [address] [facility] [place] [address] (Gwendolyn rahman) 01/12/2022 Appointment Laboratory Medicine Matthew Jerome M.B.B.S., MJules [address] [place] [address] (Gwendolyn rahman) 01/12/2022 Appointment Laboratory Medicine Adeline Frazier M.D., Ph.D. [address] [place] [phone] (Wo rk) 01/13/2022 Telemedicine Transplant Joel Tan L.I.C.S.W., M.S. W. [address] [place] [phone] (Wo rk) 01/13/2022 Telemedicine Transplant Matthew Jerome M.B.B.S., MCee. [address] [place] [phone] ( rk) 01/13/2022 Telemedicine Transplant Adeline Frazier M.D., Ph.D. [address] [place] [phone] ( rk) 01/28/2022 Office Visit Gastroenterology and Matthew Jerome, Hepatology JoshuaBSumaBGraeme, MJules [address] [place] [phone] ( rk) Scheduled Procedures Name Priority Associated Diagnoses Date/Time ESOPHAGOGASTRODUODENOSCOPY Cirrhosis Alc oholic (HCC) Hypertension Portal (HCC) ESOPHAGOGASTRODUODENOSCOPY Cirrhosis Alc oholic (HCC) Ascites Anemia Macrocytic Thrombocytopenia (HC C) Deficiency Coagulation Acquired (HCC) documented as of this encounter Procedures Procedure Name Priority Date/Time Associated Diagnosis Comme nts CARBOXY-THC Routine 12/15/2021 5:58 PM Results f or this CONFIRMATION, U CDT procedure ar e in the results section. CONFIRMED DRUG ABUSE Routine 12/15/2021 5:58 PM Cannabis Use R esults for this PANEL, U CDT Unspecified procedure are i n Uncomplicated the results section. ETHYL GLUCURONIDE Routine 12/15/2021 5:51 PM Alcohol Moderate Or Results for this CONFIRMATION, U CDT Severe Use Disorder proce dure are in (Dependence) the results Uncomplicated (HCC) section. documented in this encounter Results Carboxy-Tetrahydrocannabinol (THC) Confirmation, Urine (12/15/2021 5:58 PM CDT) [facility] Method Time Signature Carboxy-THC- by 19 Cutoff: 12/18/2021 [facility] GC/MS 3.0 ng/mL 6:38 AM CDT Carboxy-THC Positive. 12/18/2021 [facility] Interpretation 6:38 AM CDT Comment: ----ADDITIONAL INFORMATION---- This report is intended for use in clini ada monitoring and management of patients. ??It is not intended for use i n employment-related testing. This test was developed and its performa nce characteristics determined by [facility] in a manner consistent with CLIA requirements. This test has not been cleared or approved by the [place] d and Drug Administration. Specimen Anatomical Collection Method Collection Time Receive d Time (Source) Location / / Volume Laterality Urine 12/15/2021 5:58 PM 7:09 CDT AM CDT Adeline Frazier M.D., Ph.D. LAB URINE ORDERABLES Performing Organization Address City/State/ZIP Code Phon e Number [facility] [address] [place] [address] SUPPORT CENTER [facility] [place] [address] Laboratory Medicine and Pathology [address] [place] (ABNORMAL) Drug Abuse Survey with Confirmation, Urine (12/15/2021 5:58 PM CDT) [facility] Method Time Signature Alcohol Negative Cutoff: 10 [...] Ph.D. LAB URINE ORDERABLES Performing Organization Address City/State/ZIP Code Phon e Number [facility] [address] [place], [place] [address] [place] [address] [facility] [address] Laboratory Medicine and Pathology [address] [place] Ethyl Glucuronide Confirmation, Random, Urine (12/15/2021 5:51 PM CDT) [facility] Method Time Signature Ethyl Glucuronide Negative Cutoff: 12/17/2021 [facility] Confirmation, U 250 ng/mL 10:34 AM CDT Ethyl Sulfate Negative Cutoff: 12/17/2021 [facility] 100 ng/mL 10:34 AM CDT Ethyl Gluc/Sulfate Negative. 12/17/2021 [facility] Interpretation 10:34 AM CDT Comment: ----ADDITIONAL INFORMATION---- This report is intended for use in clini ada monitoring and management of patients. ??It is not intended for use i n employment-related testing. This test was developed and its performa nce characteristics determined by [facility] in a manner consistent with CLIA requirements. This test has not been cleared or approved by the [place]. [place] d and Drug Administration. Specimen Anatomical Collection Method Collection Time Receive d Time (Source) Location / / Volume Laterality Urine (Urine, 12/15/2021 5:51 PM 12/16/19 9:55 Midstream) CDT PM CDT Adeline Frazier M.D., Ph.D. LAB URINE ORDERABLES Performing Organization Address City/State/ZIP Code Phon e Number [facility] [address] [place] [address] [facility] C[facility] [address] Laboratory Medicine and Pathology [address] [place] documented in this encounter Visit Diagnoses Diagnosis Alcohol Moderate Or Severe Use Disorder (Dependence) Uncomplicated (HCC) Cannabis Use Unspecified Uncomplicated documented in this encounter Additional Health Concerns Assessment Noted Time PHQ-9 Depression Total Score: 10 10/06/2021 5:00 PM CD T documented as of this encounter Care Teams City Routeman Relationship Specialty Start Date End Date Ana Red P.A.-C. PCP - General Internal Medicine 12/01/[address] [place] [phone] [facility]- [place] lab 08/25/21 Ervin Schroeder MD Referring Provider Family Medicine 03/24/[address] [place] [phone] documented as of this encounter
--- OUTSIDE RECORDS SUMMARY | 2021-12-28 23:24 | XMS_ITS | Encounter Summary ---
:1990 Author Organization [facility] Address [address] [place] [address] Care Team Providers Name Role Phone Ana Red P.A.-C. Primary Care Provider [phone] Encounter Details Date Type Department Care Team Description 12/25/2021 Clinical Communication Department of N[facility] Perez Medicine in [address] [address] [facility] [place] [phone] (Work) [phone] Social History Tobacco Use Types Packs/Day Years [...] or relatives? How often do you attend pentecostal or Never 2021 restoration services? Do you belong to any clubs or No 07/17/2021 organizations such as pentecostal groups, unions, fraKipo or athletic groups, or school groups? How [...] place to sleep or slept in a nursing home (including now)? Education Answer Date Recorded What is the highest level of school Associate degree: ruth barker, 07/16/2021 you have completed or the highest technical, or vocational p rolf degree you have received? Sex Assigned at Date Recorded Female 04/12/2021 7:[address] [employer] documented as of this encounter Miscellaneous Notes Telephone Encounter - Yadi Mas - 12/26/2021 2:11 PM CDT Patient called returning nurse call please call her back Telephone Encounter - Daron Cee - 12/25/2021 2:29 PM CDT Reason for Communication: Patient calling back to the nurse. I was unable to reach the nurse. Pleasecall the patient back. Current Can Nursing/Provider leave a detailed message?: yes Did the patient refuse triage through Nurse line? (for symptom based concerns): Action Needed: Please call patient back Name of Medication (if relevant): Please send all scheduling replies to scheduling pool. Telephone Encounter - Christina Mccall L.P.N. - 12/25/2021 2:13 PM CDT Left message for patient to return call to clinic. Does the patient need to speak to nursing? yes Action needed: Please call this patient. I am unable to fill out a parking disability form for her. I have never met her before. If she would like to come into the clinic to discuss further I would be happy to see her. Noted she does have appointment on 01/07/22 with Ana. Telephone Encounter - Ana Red P.A.-C. - 12/25/2021 1:57 PM CDT Please call this patient. I am unable to fill out a parking disability form for her. I have never met her before. If she would like to come into the clinic to discuss further I would be happy to see her. documented in this encounter Plan of Treatment Upcoming Encounters Date Type Specialty Care Team Description 01/07/2022 Office Visit Community Internal Medicine Ranjit Red P.A.-C. [address] [place] [phone] (Gwendolyn rahman) 01/12/2022 Appointment Laboratory Medicine Matthew Jerome M.B.B.S., MJules [address] [place] [phone] (Gwendolyn rahman) 01/12/2022 Appointment Laboratory Medicine Adeline Frazier M.D., Ph.D. [address] [place] [phone] (Wo rk) 01/13/2022 Telemedicine Transplant Dominick JoelShala Granda, M.S. W. [address] [place] [phone] (Wo rk) 01/13/2022 Telemedicine Transplant Matthew Jerome M.B.B.S., M.D. [address] [place] [phone] (Wo rk) 01/13/2022 Telemedicine Transplant Adeline Frazier M.D., Ph.D. [address] [place] [phone] (Gwendolyn rk) 01/28/2022 Office Visit Gastroenterology and Matthew Jerome, Hepatology JoshuaBSumaB.Kath, MJules [address] [place] [address] (Gwendolyn rk) Scheduled Procedures Name Priority Associated Diagnoses [...] documented as of this encounter Care Teams Dural Mechanic Relationship Specialty Start Date End Date Ana Red P.A.-C. PCP - General Internal Medicine 12/01/[address] [place] [address] [place] [phone] [facility] 08/25/21 Ervin Schroeder MD Referring Provider Family Medicine 03/24/[address] [place] [phone] documented as of this encounter
--- OUTSIDE RECORDS SUMMARY | 2021-12-28 23:24 | XMS_ITS | Encounter Summary ---
:1990 Author Organization [facility] Address [address] [place] [phone] Care Team Providers Name Role Phone Ana Red P.A.-C. Primary Care Provider Reason for Visit Reason Comments Ascites Shortness of Breath Encounter Details Date Type Department Care Team Description 12/21/2021 Emergency [facility] Katrin Gonzalez M.D., Ph.D. [address] [phone] Ascites (Primary Dx) Emergency Department Clifton Liu M.D. [address] [phone] [place] [phone] Social History Tobacco Use Types Packs/Day Years [...] or relatives? How often do you attend spiritism or Never 2021 restoration services? Do you belong to any clubs or No 07/17/2021 organizations such as spiritism groups, unions, fraLocalView or athletic groups, or school groups? 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 - 12/21/2021 7:17 AM CDT Please follow up with your liver doctor to schedule further paracentesis outpatient. documented in this encounter Medications at Time [...] 28 days. documented as of this encounter Procedure Notes Divina Ch, Slick.Marylou., M.P.H. - 12/21/2021 5:42 AM CDTAssociated Order(s): Paracentesis Procedure Paracentesis Date/Time: 12/21/2021 2:48 PM Performed by: Divina Ch D.O., M.P.H. Authorized by: Clifton Liu M.D. PROCEDURE DETAILS Equipment: paracentesis tray Needle gauge: 20 Ultrasound image guidance used to localize target, identify at risk structures, and dynamically usedto direct therapy to the target. Image(s) not saved. Puncture site: right lower quadrant Fluid removed amount (mL): 3 Fluid appearance: olive Specimen: no specimen sent CONSENT Consent obtained: verbal Consent given by: patient [employer] All relevant documentation and testing were reviewed and available. All required blood products, implants, devices and or special equipment were made available as applicable. Pre-procedure verificationwas conducted and the correct site was marked if required. A fire risk assessment was done as applicable. The procedural time-out to verify correct patient, correct side/site, and procedure was conducted prior to performing the procedure and confirmed in a procedural pause. PRE-PROCEDURE DETAILS Procedure purpose: therapeutic Indications: ascites Appropriate hand hygiene, gown, cap, mask, protective eyewear, sterile gloves, skin preparation, sterile drape, and strict aseptic technique were utilized as applicable for the procedure.: yes Skin preparation: chlorhexidine SEDATION / ANESTHESIA Anesthesia method: local infiltration Local infiltrate type: lidocaine POST-PROCEDURE DETAILS Albumin replacement: 25g- 25% albumin Dressing: adhesive bandage Procedure completed successfully: yes Complications comment: Required 2 attempts. Divina Ch D.O., M.P.H. Resident 12/21/21 1449 documented in this encounter ED Notes Haile Keith M.D. - 12/21/2021 7:48 AM CDT Care for this patient was transferred to ut at shift change. Please see associated documentation forfurther information. Catia Carias is a 31 y.o. female here for evaluation of Ascites and Shortness of Breath. Currently receiving albumin infusion. Once albumin infusion is complete we will discharge home at that time. BP 117/60 (BP Location: Left arm, Patient Position: Lying) Pulse 93 Temp 37 ??C (Oral) Resp 18 Wt 57.4 kg LMP 12/02/2021 (Exact Date) SpO2 98% BMI 22.71 kg/m?? Final Diagnoses: as of 12/21/21 1637 Ascites Haile Keith M.D. Resident 12/21/21 1638 Ted Gonzalez M.D., Ph.D. - 12/21/2021 3:43 AM CDT I have personally seen and examined this patient. I have fully participated in the care of this patient. I have reviewed all clinical information including history, physical exam, orders, and plan. I agree with the note of the resident. I was present for the critical portion of the procedure(s) performed by the resident, paracentesis IMPRESSION AND PLAN Patient is a 31-year-old woman with history of liver failure that presents with some abdominal fullness and shortness of breath. Patient has required several episodes of paracentesis for symptomatic ascites. She says it is getting somewhat worse tonight and she presents to have it drained. She has hadsomewhat increasing shortness of breath but no other complaint. Her abdomen is not particularly tender and she has no fever or chills. I saw her last evening for an unrelated complaint. Here, she is breathing at a normal rate and comfortably and oxygenating well. I do not think that this is an emergent procedure and I would recommend outpatient management. However, it is Wednesday night overnight and she does not have an outpatient plan on how to have this drained yet in place. Therefore after discussion for shared decision-making I said we will do this procedure when we have the time in the ED and she will make an outpatient plan with her providers to avoid this in the future. I do not think this is SBP or any other emergent/dangerous problem at this time. I anticipate discharge afterwards with return instructions for any worsening or worrisome signs or symptoms. Final Diagnoses: as of 12/21/212241 Ascites Ted Gonzalez M.D., Ph.D. 12/21/212241 Harinder Nguyễn M.D. - 12/21/2021 1:23 AM CDT SUBJECTIVE CHIEF COMPLAINT/REASON FOR VISIT Ascites and Shortness of Breath HISTORY OF PRESENT ILLNESS Catia Carias is a 31-year-old female with hepatic failure and ascites, patent foramen ovale,anxiety, mood disorder, chronic pancreatitis, chronic pain syndrome presents emergency department with chief complaint of shortness of breath secondary to her ascites. Patient was seen in the emergencydepartment yesterday 12/20/2021 for lower back pain which she was provided IV fluids and discharged with recommendation of use of ibuprofen and lidocaine patches for pain. Since discharge, patient states her pain still present but has improved. However, she feels like her abdomen is more distended due to her ascites which is causing shortness of breath. She called on-call physician who recommended she come to the emergency department for paracentesis. Patient denies any other symptoms such as fevers,chills, nausea, vomiting, diarrhea, and constipation. Patient reports that her breasts are more shallow. She reports her last paracentesis was 3 weeks ago and she does not have one scheduled in the future. REVIEW OF SYSTEMS Constitutional: Negative for activity change, appetite change, chills and fever. HENT: Negative for congestion, sore throat, trouble swallowing and voice change. Eyes: Negative for photophobia, pain and visual disturbance. Respiratory: Positive for shortness of breath (due to her distented abdomen she is not able to take as deep of breaths). Negative for cough, chest tightness and wheezing. Cardiovascular: Negative for chest pain, palpitations and leg swelling. Gastrointestinal: Positive for abdominal distention. Negative for abdominal pain, constipation, diarrhea, nausea and vomiting. Endocrine: Negative. Genitourinary: Negative for inability to urinate, dysuria, flank pain and hematuria. Musculoskeletal: Positive for back pain (has improved from night prior). Negative for neck pain, neck stiffness and extremity pain. Skin: Negative for lesions, pallor, rash and wound. Allergic/Immunologic: Negative for environmental allergies, food allergies and immunocompromised state. Hematological: Negative for adenopathy. Does not bruise/bleed easily. Psychiatric/Behavioral: Negative for depression. The patient is not nervous/anxious. OBJECTIVE Initial Vitals Temperature Pulse Rate Heart Rate Resp Rate Blood Pressure SpO2 12/21/21 0223 12/21/21 0115 -- 12/21/21 0223 12/21/21 0115 12/21/21 0115 37 ??C 99 12 117/60 98 % Pain Score 12/21/21 0221 7 PHYSICAL EXAMINATION Constitutional: Nursing note and vitals reviewed. She appears not lethargic. No distress. HENT: Nose: No nasal discharge. Mouth/Throat: Oropharynx is clear and moist. Mucous membranes are moist. Eyes: EOM are normal. Pupils are equal, round, and reactive to light. Jaundice present. Neck: Neck supple. No thyromegaly present. Cardiovascular: Normal rate and regular rhythm. Exam reveals no gallop and no friction rub. Murmur heard. Pulmonary/Chest: Effort normal and breath sounds normal. There is normal air entry. No stridor. No respiratory distress. She has no wheezes. She has no rhonchi. She has no rales. She exhibits no retraction. Abdominal: exhibits distension, fluid wave and ascites.There is no abdominal tenderness. There is norebound and no guarding. Musculoskeletal: General: No tenderness, deformity or edema. Normal range of motion. Cervical back: Normal range of motion and neck supple. Neurological: Alert and oriented to person, place, and time. Skin: Skin is warm, intact and normal color. She is not diaphoretic. There is jaundice. Psychiatric: She has a normal mood and affect. Behavior is normal. Judgment and thought content normal. ASSESSMENT/PLAN IMPRESSION AND PLAN Catia Carias is a 31 y.o. female hepatic failure and ascites, patent foramen ovale, anxiety, mood disorder, chronic pancreatitis, chronic pain syndrome presents emergency department with chief complaint of shortness of breath secondary to her ascites. On arrival to the ED, the patient is hemodynam ically stable. The patient's physical exam is notable for abdominal distention, fluid wave, and ascites. Differential diagnosis includes, but is not limited to ascites secondary to liver failure. D Forsymptomatic relief, we will provide paracentesis. e. 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 DIFFERENTIAL DIAGNOSIS Liver failure with ascites ED Course as of 12/21/21720 Sun Dec 21, 2021 0642 Paracentesis was performed. 3 Liters was removed. Patient states that she feels better. Giving the patient albumin. Final Diagnoses: as of 12/21/21720 Ascites Patient is stable and disposition is depending patient completing albumin infusion. Care team takingover service will discharge patient once she finishes the albumin infusion. Harinder Nguyễn M.D. Resident 12/21/21726 documented in this encounter Plan of Treatment Upcoming Encounters Date Type Specialty Care Team Description 01/07/2022 Office Visit Community Internal Medicine Ranjit Rde P.A.-C. [address] [place] [phone] (Gwendolyn rahman) 01/12/2022 Appointment Laboratory Medicine Matthew Jerome M.B.B.SSuma, M.D. [address] [place] [phone] (Gwendolyn rahman) 01/12/2022 Appointment Laboratory Medicine Adeline Frazier M.D., Ph.D. [address] [phone] (Gwendolyn rahman) 01/13/2022 Telemedicine Transplant Joel Tan L.I.C.SZara, M.S. W. [address] [place] [phone] (Gwendolyn rahman) 01/13/2022 Telemedicine Transplant Matthew Jerome M.B.B.S., M.D. [address] [place] [phone] (Gwendolyn rahman) 01/13/2022 Telemedicine Transplant Adeline Frazier M.D., Ph.D. [address] [place] [phone] (Gwendolyn rahman) 01/28/2022 Office Visit Gastroenterology and Matthew Jerome, Hepatology Lilian Santillan [address] [place] [phone] (Gwendolyn rahman) Scheduled Procedures Name Priority Associated Diagnoses Date/Time ESOPHAGOGASTRODUODENOSCOPY Cirrhosis Alc oholic (HCC) Hypertension Portal (HCC) ESOPHAGOGASTRODUODENOSCOPY Cirrhosis Alc oholic (HCC) Ascites Anemia Macrocytic Thrombocytopenia (HC C) Deficiency Coagulation Acquired (HCC) documented as of this encounter Procedures Procedure Name Priority Date/Time Associated Diagnosis Comme nts PARACENTESIS Routine 12/21/2021 2:48 PM Results f or this CDT procedure are i n the results section . documented in this encounter Results Paracentesis (12/21/2021 2:48 PM CDT) Narrative [...] Clifton Liu M.D. PROCEDURE/MINOR SURGICAL ORD ERABLES documented in this encounter Visit Diagnoses Diagnosis Ascites - Primary documented in this encounter Administered Medications Inactive Administered Medications - up to 3 most recent administrations Medication Order MAR Action Action Date Dose Rate Site albumin human 25 % injection - ADS Overr joon Pull Starting on 12/21/21 at 0650, For 1 dose, Created b y cabinet override albumin human 25 % injection 25 g New Bag 12/21/2021 7:20 AM CDT 25 g 100 mL/hr 25 g, intravenous, Once, On 12/21/21 at 0647, For 1 dose, If paracentesis volume less than 3 liters - Only at the discretion of Physcian. If paracentesis volume between 3 liters and 4.9 liters - administer 25 grams. If paracentesis volume between 5 liters and 7.9 liters - administer 50 grams. If paracentesis volume between 8 liters and 9.9 liters - administer 75 grams. If paracentesis volume greater than 10 liters - administer 100 grams. lidocaine 10 mg/mL (1 %) injection 20 mL Given 12/21/2021 5:00 A M CDT 10 mL (XYLOCAINE) 20 mL, infiltration, Once, On 12/21/21 at 0321, For 1 dose LORazepam tablet 0.5 mg (ATIVAN) Given 12/21/2021 5:54 AM CDT 0.5 mg 0.5 mg, oral, Once, On 12/21/21 at 0549, For 1 dose documented in this encounter Active and Recently Administered Medications Times are shown in CDT. Scheduled Medication Order 12/19/2021 12/20/2021 12/21/2021 albumin human 25 % injection 25 g (COMPLETED) 07 (New Bag - Provider: Fadumo Christianson REric.)0830 (Stopped - Provider: Daniel Ross R.N., CPEN) 25 g, intravenous, Once, On 12/21/21 at 0647, For 1 dose, If paracentesis volume less than 3 liters - Only at the discretion of Physcian. If paracentesis volume between 3 liters and 4.9 liters - admi nister 25 grams. If paracentesis volume between 5 liters and 7.9 liters - administer 50 grams. If paracentesis volume between 8 liters and 9.9 liters - administer 75 grams. If paracentesis volume greater than 10 liters - administer 100 grams. lidocaine 10 mg/mL (1 %) injection 20 mL (XYLOCAINE) (COMPLETED) 0500 (Given - Provider: Fili Hunt RSumaN. - Comment: given at the time of a paracentesis by provider) 20 mL, infiltration, Once, On 12/21/21 at 0321, For 1 dose LORazepam tablet 0.5 mg (ATIVAN) (COMPLETED) 0554 (Given - Provider: Nataliia Granados RGabby) 0.5 mg, oral, Once, On 12/21/21 at 0549, For 1 dose documented in this encounter Additional Health Concerns Assessment Noted Time PHQ-9 Depression Total Score: 10 10/06/2021 5:00 PM CD T documented as of this encounter Care Teams Supervisor Maintenance Relationship Specialty Start Date End Date Ana Red P.A.-C. PCP - General Internal Medicine 12/01/[address] [place] [address] AvADI Montoya [phone] [facility] [place] [facility] 08/25/21 Ervin Schroeder MD Referring Provider Family Medicine 03/24/[address] [place] [address] ADI Mejía [phone] documented as of this encounter
--- OUTSIDE RECORDS SUMMARY | 2021-12-28 23:25 | XMS_ITS | Encounter Summary ---
:1990 Author Organization [facility] Address [address] [place] [address] Care Team Providers Name Role Phone Ana Red P.A.-C. Primary Care Provider [phone] Encounter Details Date Type Department Care Team Description 12/04/2021 Clinical Communication Division of [facility], Gastroenterology in [facility] [place], [place] [address] [facility] [address] [place] [phone] Social History Tobacco Use Types Packs/Day Years [...] do you attend pentecostal or Never 2021 anglican services? Do you belong to any clubs or No 07/17/2021 organizations such as pentecostal groups, unions, fraternal or athletic groups, or [...] place to sleep or slept in a skilled nursing (including now)? Education Answer Date Recorded What is the highest level of school Associate degree: ruth barker, 07/16/2021 you have completed or the highest technical, or vocational p jonnyram degree you have received? 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 [address] [place] [phone] (Wo rk) 01/12/2022 Appointment Laboratory Medicine Matthew Jerome M.B.BSumaS., M.D. [address] [place] [phone] (Wo rk) 01/12/2022 Appointment Laboratory Medicine Adeline Frazier M.D., Ph.D. [address] [place] [phone] (Wo rk) 01/13/2022 Telemedicine Transplant Joel Tan L.I.C.S.W., M.S. W. [address] [place] [phone] (Wo rk) 01/13/2022 Telemedicine Transplant Matthew Jerome M.B.B.S., M.D. [address] [place] [phone] (Wo rk) 01/13/2022 Telemedicine Transplant Adeline Frazier M.D., Ph.D. [address] [place] [phone] (Wo rk) 01/28/2022 Office Visit Gastroenterology and Matthew Jerome, Hepatology VikBGraeme, MCee. [address] [place] [phone] (Wo rk) Scheduled Procedures Name Priority Associated Diagnoses Date/Time ESOPHAGOGASTRODUODENOSCOPY Cirrhosis Alc oholic (HCC) Hypertension Portal (HCC) ESOPHAGOGASTRODUODENOSCOPY Cirrhosis Alc oholic (HCC) Ascites Anemia Macrocytic Thrombocytopenia (HC C) Deficiency Coagulation Acquired (HCC) documented as of this encounter Visit Diagnoses Diagnosis Ascites - Primary documented in this encounter Additional Health Concerns Assessment Noted Time PHQ-9 Depression Total Score: 10 10/06/2021 5:00 PM CD T documented as of this encounter Care Teams Clinical Geneticist Relationship Specialty Start Date End Date Ana Red P.A.-C. PCP - General Internal Medicine 12/01/[address] [place] [phone] [facility] [place] lab 08/25/21 Ervin Schroeder MD Referring Provider Family Medicine 03/24/[address] [place] [phone] documented as of this encounter
--- OUTSIDE RECORDS SUMMARY | 2021-12-28 23:25 | XMS_ITS | Encounter Summary ---
:1990 Author Organization [facility] Address [address] [place] [address] Care Team Providers Name Role Phone Ana Red P.A.-C. Primary Care Provider [phone] Reason for Referral Outpatient (Routine) - Authorized Specialty Diagnoses / Procedures Referred By Contact Refer red To Contact Community Internal Ana Red [facility] [address] [facility] [place] [address] Referral ID Status Reason Start Date Expiration Date Visits V isits Requested Authorized [id number] Authorized 12/02/2021 12/02/2022 1 1 Encounter Details Date Type Department Care Team Description 12/02/2021 Orders Only [facility]NT Ana Red P.A.-C. [address] [facility] [place], [place] [phone] (Wo rk) Social History Tobacco Use Types Packs/Day Years [...] or relatives? How often do you attend shinto or Never 2021 voodoo services? 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 [address] [place] [phone] (Wo rk) 01/12/2022 Appointment Laboratory Medicine Matthew Jerome M.B.BSumaSSuma, MJules [address] [place] [phone] (Wo rk) 01/12/2022 Appointment Laboratory Medicine Adeline Frazier M.D., Ph.D. [address] [place] [phone] (Wo rk) 01/13/2022 Telemedicine Transplant Joel Tan L.I.C.S.W., M.S. W. [address] [place] [phone] (Wo rk) 01/13/2022 Telemedicine Transplant Matthew Jerome M.B.BSumaSSuma, MSumaDSuma [address] [place] [phone] (Wo rk) 01/13/2022 Telemedicine Transplant Adeline Frazier M.D., Ph.D. [address] [place] [phone] (Wo rk) 01/28/2022 Office Visit Gastroenterology and Matthew Jerome, Hepatology JoshuaBSumaB.SSuma, MSumaD. [address] [place] [phone] (Wo rk) Scheduled Procedures Name Priority Associated Diagnoses Date/Time ESOPHAGOGASTRODUODENOSCOPY Cirrhosis Alc oholic (HCC) Hypertension Portal (HCC) ESOPHAGOGASTRODUODENOSCOPY Cirrhosis Alc oholic (HCC) Ascites Anemia Macrocytic Thrombocytopenia (HC C) Deficiency Coagulation Acquired (HCC) Scheduled Referrals Name Type Priority Associated Diagnoses [facility] Internal Outpatient Referral Routine Ex pected: Medicine office 12/16/2021, visit (clinic) Expires: 05/31/2022 documented as of this encounter Visit Diagnoses Not on filedocumented in this encounter Additional Health Concerns Assessment Noted Time PHQ-9 Depression Total Score: 10 10/06/2021 5:00 PM CD T documented as of this encounter Care Teams Park Guard Relationship Specialty Start Date End Date Ana Red P.A.-C. PCP - General Internal Medicine 12/01/[address] [place] [phone] [facility] [place] lab 08/25/21 Ervin Schroeder MD Referring Provider Family Medicine 03/24/[address] [place] [phone] documented as of this encounter
--- OUTSIDE RECORDS SUMMARY | 2021-12-28 23:25 | XMS_ITS | Encounter Summary ---
:1990 Author Organization [facility] Address [address] [place] [address] Care Team Providers Name Role Phone Elsewhere, Pcp Primary Care Provider Unavailable Encounter Details Date Type Department Care Team Description 11/27/2021 Orders Only Division Gerard Prince M.D ., Internal Medicine, [facility], in [place], [address] [place] [address] [place] [phone] [place] [address] [phone] Social History Tobacco Use Types Packs/Day Years Used Date Smoking Tobacco: Former Cigarettes 1 05/2009 - 10/20/2021 Smokeless Tobacco: Never Comments: 2-3 cpd since July 27, 2021 Alcohol Use Standard Drinks/Week Comments Not Currently 0 (1 standard drink = 0.6 oz pure alcoho l) Alcohol Habits Answer Date Recorded How often do you have a drink containing alcohol? Never 07/17/2021 How many drinks containing alcohol do you have on a typical Not asked day when you are drinking? How often do you have six or more drinks on one occasion? No t asked Comment: Not asked Social Isolation Answer Date Recorded In a typical week, how many times do you More than three melony es a week 07/17/2021 talk on the phone with family, friends, or neighbors? How often do you get together with friends Twice a week 07/17/2021 or relatives? How often do you attend jewish or Never 2021 amish services? Do you belong to any clubs or No 07/17/2021 organizations such as jewish groups, unions, fraCallFire or athletic groups, or school groups? 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 [address] [place] [phone] (Gwendolyn rahman) 01/12/2022 Appointment Laboratory Medicine Matthew Jerome M.B.B.S., M.D. [address] [place] [phone] (Gwendolyn rahman) 01/12/2022 Appointment Laboratory Medicine Adeline Frazier M.D., Ph.D. [address] [place] [phone] (Gwendolyn rahman) 01/13/2022 Telemedicine Transplant Joel Tan L.I.C.S.W., M.S. W. [address] [place] [phone] (Wo rk) 01/13/2022 Telemedicine Transplant Matthew Jerome M.B.B.S., M.D. [address] [place] [phone] (Wo rk) 01/13/2022 Telemedicine Transplant Adeline Frazier M.D., Ph.D. [address] [place] [phone] (Wo rk) 01/28/2022 Office Visit Gastroenterology and Matthew Jerome, Hepatology Ty[place], Lilian [address] [place] [phone] (Wo rk) Scheduled Procedures Name [...] documented as of this encounter Care Teams Machine Set Up Operator Paper Goods Relationship Specialty Start Date End Date Elsewhere, Pcp PCP - General Family Medicine 03/10/20 11/30/21 [facility] [place] [facility] 08/25/21 Ervin Schroeder MD Referring Provider Family Medicine 03/24/[address] [place] [address] documented as of this encounter
--- OUTSIDE RECORDS SUMMARY | 2021-12-28 23:25 | XMS_ITS | Encounter Summary ---
:1990 Author Organization [facility] Address [address] [place] [address] Care Team Providers Name Role Phone Ana Red P.A.-C. Primary Care Provider [phone] Encounter Details Date Type Department Care Team Description 11/26/2021 Clinical Communication Division of Luly Bentley, Internal Medicine, [place] [address] [place] [address] [place] [phone] [place], [place] [phone] (Work) [phone] Social History Tobacco Use Types Packs/Day Years [...] do you attend lutheran or Never 2021 buddhism services? Do you belong to any clubs or No 07/17/2021 organizations such as lutheran groups, unions, fraGuardian[employer] or athletic groups, or school groups? How [...] place to sleep or slept in a long-term (including now)? Education Answer Date Recorded What is the highest level of school Associate degree: ruth barker, 07/16/2021 you have completed or the highest technical, or vocational p rolf degree you have received? 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 [address] [place] [address] (Gwendolyn rahman) 01/12/2022 Appointment Laboratory Medicine Matthew Jerome M.B.BSumaS., M.D. [address] [place] [address] (Gwendolyn rahman) 01/12/2022 Appointment Laboratory Medicine Adeline Frazier M.D., Ph.D. [address] [place] [phone] (Wo rk) 01/13/2022 Telemedicine Transplant Joel Tan L.I.C.S.W., M.S. W. [address] [place] [phone] (Wo rk) 01/13/2022 Telemedicine Transplant Matthew Jerome M.B.B.S., M.Slick. [address] [place] [phone] (Wo rk) 01/13/2022 Telemedicine Transplant Adeline Frazier M.D., Ph.D. [address] [place] [phone] (Wo rk) 01/28/2022 Office Visit Gastroenterology and Matthew Jerome, Hepatology VikBGraeme, M.Jeri [address] [place] [phone] (Wo rk) Scheduled Procedures Name Priority Associated Diagnoses Date/Time ESOPHAGOGASTRODUODENOSCOPY Cirrhosis Alc oholic (HCC) Hypertension Portal (HCC) ESOPHAGOGASTRODUODENOSCOPY Cirrhosis Alc oholic (HCC) Ascites Anemia Macrocytic Thrombocytopenia (HC C) Deficiency Coagulation Acquired (HCC) documented as of this encounter Results (ABNORMAL) Basic Metabolic Panel (12/02/2021 4:14 PM CDT) P athologist Signature Potassium, P 5.0 3.6 - 5.2 12/02/2021 [place] mmol/L 6:45 PM CDT Sodium, P 134 (L) 135 - 145 12/02/2021 [place] mmol/L 6:45 PM CDT Chloride, P 101 98 - 107 12/02/2021 [place] mmol/L 6:45 PM CDT Bicarbonate, P 18 (L) 22 - 29 12/02/2021 [place] mmol/L 6:46 PM CDT Anion Gap, P 15 7 - 15 12/02/2021 [place] 6:45 PM CDT BUN (Blood Urea 13 6 - 21 12/02/2021 [place] Nitrogen), P mg/dL 6:46 PM CDT Creatinine 0.82 0.59 - 12/02/2021 [place] 1.04 mg/dL 6:46 PM CDT eGFR-Black/Afri >90 >=60 12/02/2021 [place] can French mL/min/BSA 6:46 PM CDT Comment: ----ADDITIONAL INFORMATION---- Estimated GFR calculated using the 2009 CKD_EPI creatinine equation. eGFR Non-Black/ >90 >=60 mL/min/BSA 12/02/2021 6:46 PM CDT [place] Comment: ----ADDITIONAL INFORMATION---- Estimated GFR calculated using the 2009 CKD_EPI creatinine equation. Calcium, Total, P 9.2 8.6 - 10.0 mg/dL 12/02/2021 6:46 PM CDT [place] Glucose, P 115 70 - 140 mg/dL 12/02/2021 6:46 PM CDT O PETAR Specimen Anatomical Collection Method Collection Time Receive d Time (Source) Location / / Volume Laterality Blood (Blood, 12/02/2021 4:14 PM 12/03/19 6:28 Venous) CDT PM CDT Shannan Rand M.D. LAB BLOOD ADD-ON Performing Organization Address City/State/ZIP Code Phon e Number [facility]- [address] [place] [address] [facility] [place] [address] System in [place] [address] [facility] documented in this encounter Visit Diagnoses Diagnosis Change Mental Status - Primary documented in this encounter Additional Health Concerns Assessment Noted Time PHQ-9 Depression Total Score: 10 10/06/2021 5:00 PM CD T documented as of this encounter Care Teams Media Manager Relationship Specialty Start Date End Date Ana Red P.A.-C. PCP - General Internal Medicine 12/01/[address] [place] [address] [place] [phone] [facility] [place] lab 08/25/21 Ervin Schroeder MD Referring Provider Family Medicine 03/24/[address] [place] [address] documented as of this encounter
--- OUTSIDE RECORDS SUMMARY | 2021-12-28 23:25 | XMS_ITS | Encounter Summary ---
:1990 Author Organization [facility] Address [address] [place] [address] Care Team Providers Name Role Phone Ana Red P.A.-C. Primary Care Provider [phone] Encounter Details Date Type Department Care Team Description 12/02/2021 Hospital Encounter Department of [facility] Cirrhosi s Alcoholic (HCC); Laboratory Medicine Y, Elizabeth.B.B.S., Hyperten neptali Portal (HCC); in [place] Thrombocytopenia (HCC); [address] Abnormal Liver Function Test; [address] [place], [place] Change Mental Status [place] [phone] Social History Tobacco Use Types Packs/Day Years [...] or relatives? How often do you attend judaism or Never 2021 hinduism services? 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 Apply to painful area on skin. ergocalciferol Take 50,000 Units by 0 04/01/2021 (DRISDOL) 50,000 Unit mouth once a week. capsule folic acid 1 mg tablet Take 1 mg by mouth 0 daily. levonorgestreL (MIRENA) 1 each by 0 20 mcg/24 hours (7 yrs) intrauterine route 52 mg IUD continuously. magnesium oxide Take 1 tablet (400 mg 60 tablet 1 2 (MAG-OX) 400 mg (241.3 total) by mouth 2 mg magnesium) tablet (two) times a day before breakfast and dinner. ondansetron ODT Take 1 tablet by 0 04/23/2021 (ZOFRAN-ODT) 8 mg mouth 3 (three) times disintegrating tablet a day as needed. pantoprazole (PROTONIX) Take 1 tablet (40 mg 30 tablet 1 40 mg EC tablet total) by mouth every morning before breakfast. thiamine (VITAMIN B1) Take 100 mg by mouth 0 100 mg tablet daily. vitamin A 3,000 mcg Take 1 capsule (3,000 50 capsule 0 10/0801/31/2022 (10,000 Unit) mcg total) by mouth 3 capsuleIndications: (three) times a week Cirrhosis Alcoholic for 50 doses. (HCC), Deficiency Vitamin A zinc sulfate (ZINCATE) Take 1 capsule (220 28 capsule 0 /06/202112/30/2021 220 (50 mg zinc) mg total) by mouth capsule daily with breakfast for 28 days. lidocaine (LIDODERM) 5 Place 1 patch on the 14 patch 0 12/10/2021 % skin at bedtime for 14 days. Apply to leg. furosemide (LASIX) 20 Take 2 tablets (40 mg 30 tablet 1 07/202112/10/2021 mg tablet total) by mouth daily. lactulose (CHRONULAC) Take 15 mL (10 g 0 11/12/19 22 12/10/2021 10 gram/15 mL solution total) by mouth 3 (three) times a day. Titrate to 3 soft bowel movements daily rifAXIMin (XIFAXAN) 550 Take 550 mg by mouth 0 12/10/2021 mg tablet 2 (two) times a day. spironolactone Take 2 tablets (100 30 tablet 1 08/03/2021 0 12/10/2021 (ALDACTONE) 50 mg mg total) by mouth tablet daily. sulfamethoxazole-trimet Take 1 tablet by 30 tablet 0 202112/10/2021 hoprim (BACTRIM DS) mouth daily. Take 1 800-160 mg per tablet tablet daily for documented as of this encounter Plan of Treatment Upcoming Encounters Date Type Specialty Care Team Description 01/07/2022 Office Visit Community Internal Medicine Ranjit Red P.A.-C. [address] [place] [phone] (Wo rk) 01/12/2022 Appointment Laboratory Medicine Matthew Jerome M.B.B.SSuma, MJules [address] [place] [phone] (Wo rk) 01/12/2022 Appointment Laboratory Medicine Adeline Frazier M.D., Ph.D. [address] [place] [phone] (Wo rk) 01/13/2022 Telemedicine Transplant Joel Tan L.I.C.SZara, M.S. W. [address] [place] [phone] (Wo rk) 01/13/2022 Telemedicine Transplant Matthew Jerome M.B.B.SSuma, M.D. [address] [place] [phone] (Wo rk) 01/13/2022 Telemedicine Transplant Adeline Frazier M.D., Ph.D. [address] [place] [phone] (Wo rk) 01/28/2022 Office Visit Gastroenterology and Matthew Jerome, Hepatology FredySSuma, M.Slick. [address] [place] [phone] (Wo rk) Scheduled Procedures Name Priority Associated Diagnoses Date/Time ESOPHAGOGASTRODUODENOSCOPY Cirrhosis Alc oholic (HCC) Hypertension Portal (HCC) ESOPHAGOGASTRODUODENOSCOPY Cirrhosis Alc oholic (HCC) Ascites Anemia Macrocytic Thrombocytopenia (HC C) Deficiency Coagulation Acquired (HCC) documented as of this encounter Procedures Procedure Name Priority Date/Time Associated Comments Diagnosis PROTHROMBIN TIME Routine 12/02/2021 4:14 PM Cirrhosis Alcoholi c Results for this (PT), P CDT (HCC) procedure are in Hypertension Portal the resu lts (HCC) section. Thrombocytopenia (HCC) Abnormal Liver Function Test BILIRUBIN, TOT, S/P Routine 12/02/2021 4:14 PM Cirrhosis Alcoh olic Results for this CDT (HCC) procedure are in Hypertension Portal the resu lts (HCC) section. Thrombocytopenia (HCC) Abnormal Liver Function Test BASIC METABOLIC Routine 12/02/2021 4:14 PM Change Mental Resul ts for this PANEL, S/P CDT Status procedure are i n the results section. documented in this encounter Results (ABNORMAL) Basic Metabolic Panel [...] CDT eGFR-Black/Afri >90 >=60 12/02/2021 [place] can Colombian mL/min/BSA 6:46 PM CDT Comment: ----ADDITIONAL INFORMATION---- [...] [facility]/ZIP Code Phon e Number [facility]- [address] [place] [address], [place] [address] [facility] [place] [address] [address] (ABNORMAL) Bilirubin, Total (12/02/2021 4:14 PM CDT) [...] [facility]/ZIP Code Phon e Number [facility]- [address] [place] [address] [facility] [place] [address] System [address] (ABNORMAL) Prothrombin Time (PT) (12/02/2021 4:14 PM CDT) Patholo gist Method Time Signature Prothrombin 33.5 (H) 9.4 - 12.5 12/02/2021 [place] Time, P sec 7:12 PM CDT INR 2.8 0.9 - 1.1 12/02/2021 [place] 7:12 PM CDT Comment: ----ADDITIONAL INFORMATION---- Standard intensity warfarin therapeutic range: 2.0 to 3.0 ?? High intensity warfarin therapeutic rang e: 2.5 to 3.5 Specimen Anatomical Collection Method Collection Time Receive d Time (Source) Location / / Volume Laterality Blood (Blood, 12/02/2021 4:14 PM 12/03/19 6:27 Venous) CDT PM CDT Matthew Santillan M.D. LAB BLOOD ADD-ON Performing Organization Address City/State/ZIP Code Phon e Number [facility]- [address] [place] [address] [place] [address] System in [place] [address] [facility] documented in this encounter Visit Diagnoses Diagnosis Cirrhosis Alcoholic (HCC) Hypertension Portal (HCC) Thrombocytopenia (HCC) Abnormal Liver Function Test Change Mental Status documented in this encounter Additional Health Concerns Assessment Noted Time PHQ-9 Depression Total Score: 10 10/06/2021 5:00 PM CD T documented as of this encounter Care Teams Import Export Agent Relationship Specialty Start Date End Date Ana Red P.A.-C. PCP - General Internal Medicine 12/01/[address] [place] [address] [place] [address] [facility] [place] lab 08/25/21 Ervin Schroeder MD Referring Provider Family Medicine 03/24/[address] [place] [address] [place] [address] documented as of this encounter
--- OUTSIDE RECORDS SUMMARY | 2021-12-28 23:25 | XMS_ITS | Encounter Summary ---
:1990 Author Organization [facility] Address [address] [place] [address] Care Team Providers Name Role Phone Ana Red P.A.-C. Primary Care Provider [phone] Encounter Details Date Type Department Care Team Description 11/26/2021 [facility] Dena Schroeder tohepatitis Non Alcoholic (Primary Dx); AND CLINICS Ervin Schaefer M.D. Unspecified Cirrhosis Of Liver (HCC) [facility] [address] [facility] [address] [place] [address] [phone] Social History Tobacco Use Types Packs/Day Years [...] or relatives? How often do you attend oriental orthodox or Never 2021 yazidi services? Do you belong to any clubs or No 07/17/2021 organizations such as oriental orthodox groups, unions, [employer] or athletic groups, or school groups? 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 [address] [place] [address] (Wo rk) 01/12/2022 Appointment Laboratory Medicine Matthew Jerome M.B.BSumaS., M.D. [address] [place] [phone] (Wo rk) 01/12/2022 Appointment Laboratory Medicine Adeline Frazier M.D., Ph.D. [address] [place] [phone] (Wo rk) 01/13/2022 Telemedicine Transplant Joel Tan L.I.C.S.W., M.S. W. [address] [place] [phone] (Wo rk) 01/13/2022 Telemedicine Transplant Matthew Jerome M.B.B.S., M.D. [address] [place] [phone] (Wo rk) 01/13/2022 Telemedicine Transplant Adeline Frazier M.D., Ph.D. [address] [place] [phone] (Wo rk) 01/28/2022 Office Visit Gastroenterology and Matthew Jerome, Hepatology VikBSumaSSuma, M.D. [address] [place] [phone] (Wo rk) Scheduled Procedures Name Priority Associated Diagnoses Date/Time ESOPHAGOGASTRODUODENOSCOPY Cirrhosis Alc oholic (HCC) Hypertension Portal (HCC) ESOPHAGOGASTRODUODENOSCOPY Cirrhosis Alc oholic (HCC) Ascites Anemia Macrocytic Thrombocytopenia (HC C) Deficiency Coagulation Acquired (HCC) documented as of this encounter Visit Diagnoses Diagnosis Steatohepatitis Non Alcoholic - Primary Unspecified Cirrhosis Of Liver (HCC) documented in this encounter Additional Health Concerns Assessment Noted Time PHQ-9 Depression Total Score: 10 10/06/2021 5:00 PM CD T documented as of this encounter Care Teams Biztalk Software Developer Relationship Specialty Start Date End Date Ana Red P.A.-C. PCP - General Internal Medicine 12/01/[address] [place] [address] [place] [address] [facility] [place] lab 08/25/21 Ervin Schroeder MD Referring Provider Family Medicine 03/24/211979 [address] [place] [address] documented as of this encounter
--- OUTSIDE RECORDS SUMMARY | 2021-12-28 23:25 | XMS_ITS | Encounter Summary ---
:1990 Author Organization [facility] Address [address] [place] [address] Care Team Providers Name Role Phone Ana Red P.A.-C. Primary Care Provider [phone] Encounter Details Date Type Department Care Team Description 12/04/2021 Documentation Division of Gastroenterology Concepción Morelos, in [facility] pedro Quintana [address] [facility] [address] [place] [phone] [place], [place] [phone] (Wo rk) Social History Tobacco Use Types [...] or relatives? How often do you attend sabianism or Never 2021 faith services? Do you belong to any clubs or No 07/17/2021 organizations such as sabianism groups, unions, fraternal or athletic groups, or [...] place to sleep or slept in a group home (including now)? Education Answer Date Recorded What is the highest level of school Associate degree: ruth barker, 07/16/2021 you have completed or the highest technical, or vocational p rolf degree you have received? 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 - 12/04/2021 12:44 AM CDT GI fellow clarification operator Catia Carias is a 31 y.o. female with decompensated alcoholic cirrhosis (diagnosed 01/2021), nowsober for 2 years, and a recent admission for HE who is calling in for abdominal pain and distension. She is in tears during the conversation; this is in part due to her level of pain and feeling as though she cannot wait 2 weeks until she can receive an outpatient para as well as due to the significant anxiety she has surrounding receiving flavio given several poor experiences in the past. She is most comfortable having this done at [place]. She denies n/v, confusion, melena, hematochezia, or fever. She is having BMs, good urine output, andtolerating PO and feels improved from her hospital stay overall, but the abdominal pain has gotten much worse. She is taking all meds compliantly including her SBP ppx (as well as lactulose, diuretics etc). She reports that she is working very hard to stay well and is understandably concerned when shefeels poorly. I reviewed her recent admission, which was due to hepatic encephalopathy felt to be multifactorial, due to lactulose noncompliance, as well as polypharmacy including opioids and gabapentin. She did nothave evidence of SBP on this admission and was discharged with SBP ppx (switched from cipro to bactrim). She had a diagnostic and therapeutic paracentesis on 11/18/2021, which removed 3L of fluid. On the , she underwent repeat therapeutic paracentesis for comfort and nausea.On 11/25, she reported upper abdominal pain, most prominent in the LUQ. Abdominal Xray without evidence of perforation. Given persistent pain despite hydromorphone, a CT abdomen/pelvis was obtained which showed new large volumeascites in the abdomen and pelvis.I do not see that this was tapped and her next ultrasound is not scheduled until 12/16. She also has splenomegaly, upper abdominal varices, evidence of possible chronicpancreatitis, body wall edema, and other sequela of portal venous hypertension. There was also mention of being worked up for [facility] in her discharge note from recent admission. I suspect her pain is discomfort due to her large volume ascites and I feel somewhat reassured as she is taking her sbp ppx compliantly, is tolerating PO intake, having BMs, and good urine output. She also labs recently, which were overall stable, although INR and BR remain very high and plts low. However, given that she has decompensated cirrhosis, we cannot rule out sbp without a tap. Her abdominalpain is new and getting worse, severe enough that she is calling in the middle of the night. I recommended that she come to the ED to ensure that she does not have SBP or any other infectious etiology or other process going on that could be contributing to her pain. She is very high risk for decompensation and likely needs a diagnostic and therapeutic tap. She may need albumin depending on how much fluid is removed. Additionally, she is following with Dr. Jerome in the outpatient setting undergoing transplant evaluation so she would like to receive her care at [place]. She is planning to come to the ED tonight or tomorrow with her boyfriend or family or by ambulance as a last resort. She knows to call me back if she needs anything else and to come in more urgently should any alarm symptoms arise. Update: She came to ED, but didn't want to wait hours to be seen. Abdominal pain is improving and more discomfort now. She is requesting outpatient para today and willing to come back to [place] (lives about 40 min away). I am working with [facility] to get her in for an outpatient para and have forwarded my note to Dr. Jerome as well. Nabila Morelos M.D. Gastroenterology Fellow documented in this encounter Plan of Treatment Upcoming Encounters Date Type Specialty Care Team Description 01/07/2022 Office Visit Community Internal Medicine Ranjit Red P.A.-C. [address] [place] [phone] (Gwendolyn rk) 01/12/2022 Appointment Laboratory Medicine Matthew Jerome M.B.BSumaSSuma, M.D. [address] [place] [phone] (Gwendolyn rk) 01/12/2022 Appointment Laboratory Medicine Adeline Frazier M.D., Ph.D. [address] [place] [phone] (Gwendolyn rk) 01/13/2022 Telemedicine Transplant Joel Tan L.I.C.SSumaW., M.S. W. [address] [place] [phone] (Gwendolyn rk) 01/13/2022 Telemedicine Transplant Matthew Jerome M.B.B.S., M.D. [address] [place] [phone] (Wo rk) 01/13/2022 Telemedicine Transplant Adeline Frazier M.D., Ph.D. [address] [place] [phone] (Wo rk) 01/28/2022 Office Visit Gastroenterology and Matthew Jerome, Hepatology Tyrell, MCee. [address] [place] [phone] (Wo rk) Scheduled Procedures Name Priority Associated [...] documented as of this encounter Care Teams Owner Spa Director Relationship Specialty Start Date End Date Ana Red P.A.-C. PCP - General Internal Medicine 12/01/[address] [place] [phone] [facility] 08/25/21 Ervin Schroeder MD Referring Provider Family Medicine 03/24/[address] [place] [phone] documented as of this encounter
--- OUTSIDE RECORDS SUMMARY | 2021-12-28 23:25 | XMS_ITS | Encounter Summary ---
:1990 Author Organization [facility] Address [address] [place] [address] Care Team Providers Name Role Phone Ana Red P.A.-C. Primary Care Provider Reason for Visit Reason Comments Follow-up Transplant evaluation Outpatient (Routine) - Closed Specialty Diagnoses / Referred By Contact Referred To Procedures Contact Gastroenterology and Diagnoses Cirrhosis Alcoholic (HCC) Hypertension Portal (HCC) Thrombocytopenia (HCC) Abnormal Liver Function Test Deficiency Vitamin A Matthew Jerome, [facility] Hepatology M.B.B.S., MJules [address] [place] [phone] Referral ID Status Reason Start Date Expiration Date Visits Requ ested Visits Authorized [id number] Closed 10/08/2021 10/08/2022 1 1 Encounter Details Date Type Department Care Team Description 12/10/2021 Office Visit Department of Matthew Jerome Cirrhosis Alco holic (HCC) (Primary Dx); Gastroenterology in Y, M.B.B.S., Hyperten neptali Portal (HCC); [place], [place] Lilian Thrombocytopenia (HCC); [address] [facility] [address] [facility] Abnormal Liver Function Test; [place] [phone] [place], [place] Deficiency Vitamin A; [phone] Ascites Chronic; [phone] Hepatic Encepha lopathy Without Coma (HCC) (Work) Social History Tobacco Use Types Packs/Day Years Used Date Smoking Tobacco: Former Cigarettes 0.3 11 01/31 - 10/20/2021 Smokeless Tobacco: Never Tobacco Cessation: Counseling Given: [...] or relatives? How often do you attend hoahaoism or Never 2021 jew services? Do you belong to any clubs or No 07/17/2021 organizations such as hoahaoism groups, unions, fraternal or athletic groups, or [...] or the highest technical, or vocational p [facility] degree you have received? Sex Assigned at Date Recorded Female 04/12/2021 7:39 PM [employer] documented as of this encounter Last Filed Vital Signs Vital Sign Reading Time Taken Comments Blood Pressure 112/58 12/10/2021 2:51 PM CDT Pulse 88 12/10/2021 2:51 PM CDT Temperature - - Respiratory Rate - - Oxygen Saturation - - Inhaled Oxygen Concentration - - Weight 57.4 kg (126 lb 8.7 oz) 12/10/2021 2:51 PM CDT Height 159 cm (5' 2.6) 12/10/2021 2:51 PM CDT Body Mass Index 22.71 12/10/2021 2:51 PM CDT documented in this encounter Patient Instructions Patient InstructionsMatthew Jerome M.B.B.S., M.D. - 12/10/2021 3:00 PM CDT Please call us for any new or worsening symptoms. Please call Parris Tan in [place]. Please follow with the psych counselor at an appointment to be scheduled next month. We will reach ot to you again with the psych recommendations. We will follow with you after the psych follow up in 1 month documented in this encounter Progress Notes Matthew Jerome M.B.B.S., M.D. - 12/10/2021 3:00 PM CDT Patient Name: Catia Carias Date of : 1990 Date of encounter: 12/10/2021 SUBJECTIVE CHIEF COMPLAINT/REASON FOR VISIT Chief Complaint Patient presents with Follow-up Transplant evaluation HISTORY OF PRESENT ILLNESS Catia Carias is a 31 y.o. female who presents for a [facility] this follow-up for hepatic encephalopathy. 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 She was admitted in [place] during the month of October for about 2 weeks for management of hepatic encephalopathy. In addition, she had episodic altered mental state with being mute but alert during the same hospitalization. She was managed with lactulose and rifaximin. She was also found to have large ascites and she underwent paracentesis and SBP was ruled out. She did not have any GI bleeding. Today she was feeling well. She presented with her mother, and she did not have any confusion or decreased concentration. She did have mild leg edema and abdominal distension. She had jaundice. She continues to take the lactulose and denied any constipation. No rectal bleeding. We reviewed the results of the transplant evaluation and explained that she was deferred from listing as a notified her over the phone in October 2021. I explained that she needed to complete the chemicaldependency treatment but she did not start that yet. Fortunately she was able to stop gabapentin, oxycodone and medical marijuana for 3 weeks now. She isfeeling fine without taking them. She also realized that she missed the voice messages from the dialysis social worker Parris Tan, and agreed to call her back to provide information about the primary caregiver support. The following portions of the patient's history were reviewed and updated as appropriate: allergies,current medications, family history, medical history, social history, surgical history and problem list. REVIEW OF SYSTEMS A comprehensive review of systems was performed, and the positive symptoms are mentioned in the HPI above. OBJECTIVE VITAL SIGNS BP 112/58 (BP Location: Right arm, Patient Position: Sitting) Pulse 88 Ht 159 cm Wt 57.4 kg LMP 12/02/2021 (Exact Date) BMI 22.71 kg/m?? PHYSICAL EXAMINATION General: Patient looks ill, + jaundice. Head/Neck: Normocephalic, atraumatic. Neck is supple. Chest: Clear. Heart: Normal S1, S2. Abdomen: Soft, nontender, distended. Positive bowel sounds. Musculoskeletal: + lower extremity edema. Skin: No jaundice. Neurologic: Cranial nerves grossly intact. No confusion. No asterixis DIAGNOSTICS Reviewed. ASSESSMENT / PLAN #1 Decompensated cirrhosis secondary to alcohol: # Alcohol use disorder, in remission: Last alcoholic drink July 2020. # History of tylenol toxicity: self medicating for neuropathic pain after surgery MELD-Na score: 25 at 03/24/2021 6:15 AM MELD-Na score: 27 at 08/03/2021 4:27 AM MELD-Na score: 32 at 09/30/2021 7:38 AM MELD-Na score: 30 at 12/04/2021 7:30 AM MELD score: 28 at 12/04/2021 7:30 AM Calculated from: Serum Creatinine: 0.72 mg/dL (Using min of 1 mg/dL) at 12/04/2021 7:30 AM Serum Sodium: 133 mmol/L at 12/04/2021 7:30 AM Total Bilirubin: 13.1 mg/dL at 12/04/2021 7:30 AM INR(ratio): 2.8 at 12/04/2021 7:30 AM Age: 31 years Current complications: Jaundice with scleral icterus, hepatic encephalopathy, leg edema, refractory ascites, recent variceal bleeding, no HCC. She was first told about cirrhosis in 01/2021. Last alcoholic drink July 2020. Transplant candidacy: Deferred until she completes chemical dependency treatment I reached out to the transplant psych team in [place] and Zenobia Hollingsworth sent the information and recommendations again to the patient via the portal. I explained to Ms Carias and her mother that she needs to complete chemical dependency treatment and follow the recommendations per the transplant psychi atry team, so that she can be considered for listing in the future. Otherwise she may be denied and unfortunately she may not be able to get a liver transplant. She stated that she was not aware that she should start that already, and felt it was difficult to accomplish that especially with her prolonged hospitalization during the month of October 2021. I agreed and encouraged her to pursue the treatment as soon as possible. She voiced understanding. She apologized for missing the voice messages from the dialysis social worker Parris Tan and promised me that she will call her to provide information about the primary caregiver support. Otherwise she remains abstinent from alcohol use. #2 Fluid retention: Trace lower extremity edema and refractory ascites. - Currently on Furosemide 40 mg QD and spironolactone 100 mg QD. - Low sodium diet, up to 2000 mg of sodium per 24 hours. - No need for lymphedema Clinic anymore. - Continue SBP prophylaxis with Bactrim daily (switched from Cipro due to concerns about Cipro impacting her encephalopathy): Low protein ascites - spironolactone (ALDACTONE) 50 mg tablet; Take 2 tablets (100 mg total) by mouth daily., Starting Wed12/10/2021, Until Wed12/10/2022, Normal - furosemide (LASIX) 20 mg tablet; Take 2 tablets (40 mg total) by mouth daily., Starting Wed12/10/2021, Until Wed12/10/2022, Normal - sulfamethoxazole-trimethoprim (BACTRIM DS) 800-160 mg per tablet; Take 1 tablet by mouth daily. Take 1 tablet daily for, Starting Wed12/10/2021, Until Wed12/10/2022, Normal #3 Portal hypertension with splenomegaly and thrombocytopenia. #4 Unknown if she has esophageal varices #4 Possible Portal hypertensive gastropathy Not on a Beta-tommy. Heart rate = 80 Next UPPER ENDOSCOPY was rescheduled from 08/2021: Pending #5 Hepatic encephalopathy: Controlled grade 0-1 - Continue lactulose with dose titration to maintain 3-4 bowel movements daily, soft stools. - Continue rifaximin. - Needs lab to test for Zinc deficiency: Pending - lactulose (CHRONULAC) 10 gram/15 mL solution; Take 15 mL (10 g total) by mouth 3 (three) times a day. Titrate to 3 soft bowel movements daily, Starting Wed12/10/2021, Until Wed12/10/2022, Normal - rifAXIMin (XIFAXAN) 550 mg tablet; Take 1 tablet (550 mg total) by mouth 2 (two) times a day., Starting Wed12/10/2021, Until Wed12/10/2022, Normal #6 At risk for hepatocellular carcinoma: - No evidence of hepatocellular carcinoma: last imaging CT on 10/2021 - Continue HCC screening with abdominal imaging every 6 months #7 Jaundice with scleral icterus #8 Bone health: At risk Osteoporosis/osteopenia # History of fracture of right anterior fifth rib related to a fall Bone mineral density below the expected range for age 610/2021 #9 Fat soluble vitamin deficiency: Both vitamin-A and D On replacement #10 Malnutrition: Malnutrition (undernutrition) related to liver failure as evidenced by ascites - Instructed to consider two daily protein shakes and 3 small meals - Encouraged bedtime snack. - Avoid uncooked seafood and shellfish - Avoid NSAIDS and no alcohol use- #11 Immunization Received vaccines against hep B viruses and may need vaccine for hepatitis A, pending labs to check immune Annual flu shot and pneumonia vaccine: to be given at the PCP's office. #12 Counseling and patient education: Patient to report any new or worsening symptoms: confusion, fluid retention including increased abdominal girth, distention or lower extremity swelling or gastro intestinal bleeding. Refer to the nearest emergency department if patient notices any blood with the stool, black stools, or if there is bloody vomiting. #13 Chronic pancreatitis: On CT imaging March 2021 No chronic upper abdominal pain Will check stool for elastase next visit #14 Chronic leg pain Medical marijuana through her PCP was discontinued in October 2021 She also stopped oxycodone and gabapentin in October 2021 #15 Newly diagnosed PFO with onulb-en-ugda atrial shunt: Echo done March 2020 # Severe left atrial enlargement. She was evaluated by Transplant cardiology, and there are no concerns at this time. She will need follow-up with echocardiogram after transplant. # History of eating disorder # Controlled substance agreement signed 2016 # Anxiety disorder 2011 and history of panic attacks # History of Major depression in remission # ADHD 2008 # History of Tobacco use Continue to follow with Transplant Psychiatry Follow-up in GI/Hepatology clinic in 1 to 2 months. ordered It was a pleasure seeing Ms. Carias today. We answered her questions, and we would be happy to answerany further questions she has. OLAYINKA Trotter Gastroenterology, Hepatology and Transplant hepatology [facility] [place] [facility] documented in this encounter Plan of Treatment Upcoming Encounters Date Type Specialty Care Team Description 01/07/2022 Office Visit Community Internal Medicine Ranjit Red P.A.-C. [address] [place] [phone] (Gwendolyn rahman) 01/12/2022 Appointment Laboratory Medicine Matthew Jerome M.B.B.S., M.D. [address] [place] [phone] (Gwendolyn rahman) 01/12/2022 Appointment Laboratory Medicine Adeline Frazier M.D., Ph.D. [address] [place] [address] [phone] (Wo rk) 01/13/2022 Telemedicine Transplant Joel Tan L.I.C.S.W., M.S. W. [address] [place] [phone] (Wo rk) 01/13/2022 Telemedicine Transplant Matthew Jerome M.B.B.S., MCee. [address] [place] [phone] (Gwendolyn rk) 01/13/2022 Telemedicine Transplant Adeline Frazier M.D., Ph.D. [address] [place] [address] [phone] (Gwendolyn rk) 01/28/2022 Office Visit Gastroenterology and Matthew Jerome, Hepatology VikBGraeme, MJules [address] [place] [phone] (Gwendolyn rk) Scheduled Procedures Name Priority Associated Diagnoses Date/Time ESOPHAGOGASTRODUODENOSCOPY Cirrhosis Alc oholic (HCC) Hypertension Portal (HCC) ESOPHAGOGASTRODUODENOSCOPY Cirrhosis Alc oholic (HCC) Ascites Anemia Macrocytic Thrombocytopenia (HC C) Deficiency Coagulation Acquired (HCC) documented as of this encounter Visit Diagnoses Diagnosis Cirrhosis Alcoholic (HCC) - Primary Hypertension Portal (HCC) Thrombocytopenia (HCC) Abnormal Liver Function Test Deficiency Vitamin A Ascites Chronic Hepatic Encephalopathy Without Coma (HCC ) documented in this encounter Additional Health Concerns Assessment Noted Time PHQ-9 Depression Total Score: 10 10/06/2021 5:00 PM CD T documented as of this encounter Care Teams Clinical Data Specialist Relationship Specialty Start Date End Date Ana Red P.A.-C. PCP - General Internal Medicine 12/01/[address] [place] [address] ADI Chua [phone] [facility] 08/25/21 Ervin Schroeder MD Referring Provider Family Medicine 03/24/[address] [place] [phone] documented as of this encounter
--- OUTSIDE RECORDS SUMMARY | 2021-12-28 23:25 | XMS_ITS | Encounter Summary ---
:1990 Author Organization [facility] Address [address] [place] [address] Care Team Providers Name Role Phone Ana Red P.A.-C. Primary Care Provider [phone] Reason for Referral Outpatient (Routine) - Pending Review Specialty Diagnoses / Procedures Referred By Contact Refer red To Contact Sleep Medicine Diagnoses Insomnia Sunny Arnold [place] [facility] D.OSuma [address] [place] [phone] Referral ID Status Reason Start Expiration Visits Visits Date Date Requested Authorized [id number] Pending Specialty 12/02/2021 12/02/2022 1 1 Review Services Required Scheduling Instructions Schedule stat since her study was cancel led twice Outpatient (Routine) - Authorized Specialty Diagnoses / Procedures Referred By Contact Refer red To Contact Community Internal JESSE Arnold ADI R egion Medicine Adair Correa [address] [place] [address] Referral ID Status Reason Start Date Expiration Date Visits V isits Requested Authorized [id number] Authorized 12/02/2021 12/02/2022 1 1 Scheduling Instructions Schedule with ana her PCP . To mariono w up on liver cirrhosis , and hepatic encephalopathy Outpatient (Routine) - Authorized Specialty Diagnoses / Procedures Referred By Contact Refer red To Contact Diagnoses Alcoholic Cirrhosis Of Liver Without Ascites (HCC) Ascites Chronic Sunny Arnold [facility] Region Procedures US Abdomen Complete D.O. [address] [place] [phone] Referral ID Status Reason Start Date Expiration Date Visits V isits Requested Authorized [id number] Authorized 12/02/2021 12/02/2022 1 1 Reason for Visit Reason Comments Post Hospital Follow-up TCM post [facility] stay with discharge on 11/26/2021 Appointment Request (Routine) - Closed Specialty Diagnoses / Procedures Referred By Contact Refer red To Contact Community Internal Medicine Referral ID Status Reason Start Date Expiration Date Visits Requ ested Visits Authorized [id number] Closed 12/01/2021 12/01/2022 1 1 Encounter Details Date Type Department Care Team Description 12/02/2021 Office Visit Department of Internal Silvano Arnold cutluzma And Subacute Hepatic Failure Without Coma (HCC) (Primary Dx); Medicine in [place] D.O . Pancreatitis Chronic (HCC); [place] [address] Use Of Opiate Analgesic; [address] [place], [place] Alcohol Use Unspecified With Unspecified Alcohol Induced Disorder (HCC); [place] [address] Alcoholic Cirrhosis Of Liver Without Asc ites (HCC); [address] Ascites Chronic; Insomnia; [phone] High Risk Medic ation (Fax) Social History Tobacco Use Types Packs/Day Years [...] or relatives? How often do you attend taoist or Never 2021 anglican services? 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 - 12/02/2021 11:00 AM CDT SUBJECTIVE CHIEF COMPLAINT / REASON FOR VISIT Catia Carias is a 31 y.o. female who presents for evaluation of No chief complaint on file.. HISTORY OF PRESENT ILLNESS Catia Carias is a pleasant 31-year-old female with past medical history significant for chronicpain, history of nicotine dependence, GERD, chronic pancreatitis, history of cannabis use, history of liver cirrhosis alcoholic with recent hospitalization secondary to hepatic encephalopathy undergoing transplant evaluation with Dr. Jerome presents, today for post hospital follow-up. The patient's hospital course was reviewed, she unfortunately presented with hepatic encephalopathy felt to be multifactorial, due to lactulose noncompliance, as well as altered mental status related to polypharmacy including opioids and gabapentin use. She has had paracentesis and SBP was ruled out. On arrival to [facility], she was unable to follow commands. She was afebrile, mildly tachycardic, normotensive, and saturating well on room air. Labs were significant for hemoglobin 8.7 (upfrom 7.4 the day prior), stable thrombocytopenia, stable white blood cell count, INR 3.3, hyponatremia 133, total bilirubin 18 (direct 9.4), ALT 18, AST 52 (35 one day prior), lactate 2.2, and ammonia 38. Serum ethanol level was undetectable. CT head without IV contrast revealed no acute intracranial abnormality. With concern for recurrent hepatic encephalopathy, she was admitted to the GI A service for further evaluation management. On admission, the patient was profoundly somnolent but able to open her eyes and count fingers. She refused to take lactulose enema. Her received lactulose through NG tube which led to improvement of mental status. However, despite improvement of her hepatic encephalopathy, she later became noncommunicative with her care team and family members. She appeared alert and intermittently responsive to communication but refused to respond. Care Management and palliative care was consulted for introduction of their roles and facilitation of goals of care discussion. Due to persistent behavioral concerns not completelyexplained by hepatic etiology, we consulted neurology and psychiatry. Neurology recommended MRI, which was unrevealing. Neurology further recommended prolonged EEG to rule out seizures which was unrevealing. Psychiatry recommended Ativan challenge to evaluate for catatonia which did not improve her symptoms. Due to lack of improvement in encephalopathy and accumulation of ascites, she went for diagnostic and therapeutic paracentesis on 11/18/2021, which removed 3L of fluid. There was no evidence of SBP. Despite lactulose and acceptable bowel movement frequency, patient continued to be encephalopathic. Her ceruloplasmin was low, which could be explained by copper deficiency or Bhavin. 24 hour urine copper was negative. There was concern for left upper quadrant and flank pain as well as cloudy urine on 11/25/2021. CT abdomen pelvis was performed which showed no acute concerns. Urinalysis was unremarkable. Fortunately by 11/21/2021, the patient's mentation began to improve. There were some remaining behavioral concerns. NG tube and herrera were removed on 11/24. Patient underwent repeat therapeutic paracentesis for comfort and nausea. Her mentation returned to baseline by 11/26/2021. Her encephalopathy was deemed to be multifactorial secondary to multiple neuro active medications, ciprofloxacin, delirium, and hepatic encephalopathy. Today, she is alert and oriented, she states that her family has been very supportive, she is very thankful that she has improved. She is very dedicated to improving her health, and doing what he needsto be done to receive a transplant. She has, stopped smoking, she does not drink, she does not use cannabis. She is no longer on opioids or gabapentin. Uses only topicals for pain. She has had issues with insomnia, and was reluctant to use melatonin until discussing this with us 1st. She is awaiting her sleep study, this was canceled twice per patient. I placed a new order for her to schedule. She isconcerned about possible fluid reaccumulation and need for paracentesis, I ordered an ultrasound of the abdomen to evaluate this further. Otherwise she denies any fevers chills night sweats shortness of breath. Vitals are stable with blood pressure 117/70 and heart rate of 90 and temperature 36.2??. Recommended she follows up with her primary care provider in 2-3 weeks, she will have a BMP CBC and liver function tests ordered today and rechecked. She is interested in increasing her furosemide dose, we discussed 1st obtaining labs to make sure they are stable, reviewed side effects of diuretics including hyponatremia which can add to confusion. She is agreeable to this plan, and has no further questions or concerns. The following portions of the patient's history were reviewed and updated as appropriate: allergies,current medications, family history, medical history, social history, surgical history, and problem list. REVIEW OF SYSTEMS A ten point ROS is otherwise negative OBJECTIVE BP 117/70 (BP Location: Right arm, Patient Position: Sitting, Cuff Size: Small) Pulse 90 Temp 36.2 ??C (Temporal) Ht 159 cm Wt 58.7 kg LMP 12/02/2021 (Exact Date) BMI 23.22 kg/m?? PHYSICAL EXAM General: Patient alert and oriented, appearing in no acute distress. Well groomed and dressed appropriately. Head: Normocephalic, atraumatic. Eyes: Sclerae clear without injection. Conjunctivae without drainage, erythema or matting. Ears/Nose/Throat: External ear canals patent. TMs pearly aguilar bilaterally. Neck: Supple without lymphadenopathy. Trachea midline. Respiratory: Clear to auscultation bilaterally posteriorly without rhonchi, wheezes, or crackles. Nocough on exam today. Respirations are easy and unlabored. Cardiac: S1 and S2 present with regular rate and rhythm. No murmurs or S3, S4 auscultated. No carotid bruits Abdomen: Abdominal distention, hypoactive bowel sounds due to fluid. No pain no rebound or guarding or rigidity. Musculoskeletal: Gait normal. Normal movement of all extremities. No upper or lower extremity edema. Neurologic: Alert and Oriented x3. Responds appropriately to questions. Follows commands without difficulty. Pupils equal and reactive to light. Cranial nerves II through XII grossly intact. EOMs intact. No unilateral or focal weakness, no involuntary movements. Adequate coordination. Skin: Warm and dry. Intact and without rashes on visible areas. ASSESSMENT / PLAN #1 Acute And Subacute Hepatic Failure Without Coma (HCC) #2 Pancreatitis Chronic (HCC) #3 Residential Use Of Opiate Analgesic #4 Alcohol Use Unspecified With Unspecified Alcohol Induced Disorder (HCC) #5 Alcoholic Cirrhosis Of Liver Without Ascites (HCC) #6 Ascites Chronic #7 Insomnia #8 High Risk Medication The patient's hospital course was reviewed, she unfortunately presented with hepatic encephalopathy felt to be multifactorial, due to lactulose noncompliance, as well as altered mental status related to polypharmacy including opioids and gabapentin use. She has had paracentesis and SBP was ruled out. On arrival to [facility], she was unable to follow commands. She was afebrile, mildly tachycardic, normotensive, and saturating well on room air. Labs were significant for hemoglobin 8.7 (upfrom 7.4 the day prior), stable thrombocytopenia, stable white blood cell count, INR 3.3, hyponatremia 133, total bilirubin 18 (direct 9.4), ALT 18, AST 52 (35 one day prior), lactate 2.2, and ammonia 38. Serum ethanol level was undetectable. CT head without IV contrast revealed no acute intracranial abnormality. With concern for recurrent hepatic encephalopathy, she was admitted to the GI A service for further evaluation management. On admission, the patient was profoundly somnolent but able to open her eyes and count fingers. She refused to take lactulose enema. Her received lactulose through NG tube which led to improvement of mental status. However, despite improvement of her hepatic encephalopathy, she later became noncommunicative with her care team and family members. She appeared alert and intermittently responsive to communication but refused to respond. Care Management and palliative care was consulted for introduction of their roles and facilitation of goals of care discussion. Due to persistent behavioral concerns not completelyexplained by hepatic etiology, we consulted neurology and psychiatry. Neurology recommended MRI, which was unrevealing. Neurology further recommended prolonged EEG to rule out seizures which was unrevealing. Psychiatry recommended Ativan challenge to evaluate for catatonia which did not improve her symptoms. Due to lack of improvement in encephalopathy and accumulation of ascites, she went for diagnostic and therapeutic paracentesis on 11/18/2021, which removed 3L of fluid. There was no evidence of SBP. Despite lactulose and acceptable bowel movement frequency, patient continued to be encephalopathic. Her ceruloplasmin was low, which could be explained by copper deficiency or Bhavin. 24 hour urine copper was negative. There was concern for left upper quadrant and flank pain as well as cloudy urine on 11/25/2021. CT abdomen pelvis was performed which showed no acute concerns. Urinalysis was unremarkable. Fortunately by 11/21/2021, the patient's mentation began to improve. There were some remaining behavioral concerns. NG tube and herrera were removed on 11/24. Patient underwent repeat therapeutic paracentesis for comfort and nausea. Her mentation returned to baseline by 11/26/2021. Her encephalopathy was deemed to be multifactorial secondary to multiple neuro active medications, ciprofloxacin, delirium, and hepatic encephalopathy. Today, she is alert and oriented, she states that her family has been very supportive, she is very thankful that she has improved. She is very dedicated to improving her health, and doing what he needsto be done to receive a transplant. She has, stopped smoking, she does not drink, she does not use cannabis. She is no longer on opioids or gabapentin. Uses only topicals for pain. She has had issues with insomnia, and was reluctant to use melatonin until discussing this with us 1st. She is awaiting her sleep study, this was canceled twice per patient. I placed a new order for her to schedule. She isconcerned about possible fluid reaccumulation and need for paracentesis, I ordered an ultrasound of the abdomen to evaluate this further. Otherwise she denies any fevers chills night sweats shortness of breath. Vitals are stable with blood pressure 117/70 and heart rate of 90 and temperature 36.2??. Recommended she follows up with her primary care provider in 2-3 weeks, she will have a BMP CBC and liver function tests ordered today and rechecked. She is interested in increasing her furosemide dose, we discussed 1st obtaining labs to make sure they are stable, reviewed side effects of diuretics including hyponatremia which can add to confusion. She is agreeable to this plan, and has no further questions or concerns. I reviewed with her these recommendations from the discharge team. recommend avoidance of neurologically active medications for pain and anxiety, including opioids, gabapentin/pregabalin, antihistamines, etc, given profound encephalopathy on this admission which is thought to be in part toxic. It appears the patient has very low threshold for provocation of encephalopathy - ciprofloxacin for SBP prophylaxis was discontinued on this admission given possible contribution to encephalopathy. Recommend further avoidance of fluoroquinolones in the future, and she has been transitioned to Bactrim for SBP prophylaxis - recommend consideration of pain medicine referral for optimization of pain control, for now patient is very committed to avoiding opioids or gabapentin to prevent further encephalopathy - recommend paracentesis as needed for therapeutic purposes - BMP scheduled 11/28 since patient is being discharged on Bactrim and spironolactone, please follow up to ensure lack of hyperkalemia and stable renal function - scheduled follow up with Dr. Jerome for transplant considerations Symptoms: if symptoms are getting worse or patient develops fever/chills or new symptoms: advise patient to come back and see a provider immediately. PATIENT EDUCATION Patient Education: Ready to learn, no apparent learning barriers were identified; learning preferences include listening. Explained diagnosis and treatment plan; patient expressed understanding of the content. Time spent 42 minutes Electronically signed by: Sunny Arnold D.O. 12/02/21 12:06 PM CDT documented in this encounter Plan of Treatment Upcoming Encounters Date Type Specialty Care Team Description 01/07/2022 Office Visit Community Internal Medicine Ranjit Red P.A.-C. [address] [place] [phone] (Gwendolyn rk) 01/12/2022 Appointment Laboratory Medicine Matthew Jerome M.B.B.S., M.D. [address] [place] [phone] (Wo rk) 01/12/2022 Appointment Laboratory Medicine Adeline Frazier M.D., Ph.D. [address] [place] [phone] (Wo rk) 01/13/2022 Telemedicine Transplant Joel Tan L.I.C.S.W., M.S. W. [address] [place] [phone] (Wo rk) 01/13/2022 Telemedicine Transplant Matthew Jerome M.B.B.S., M.D. [address] [place] [phone] (Wo rk) 01/13/2022 Telemedicine Transplant Adeline Frazier M.D., Ph.D. [address] [place] [phone] (Wo rk) 01/28/2022 Office Visit Gastroenterology and Matthew Jerome, Hepatology Ty[place], M.Slick. [address] [place] [phone] (Wo rk) Scheduled Orders Name Type Priority Associated Diagnoses Order [facility] US Abdomen Complete Imaging RAD - Routine (most Alcoholic Cirr hosis Expected: inpatients and all Of Liver Without 12/02 outpatients) Ascites (HCC) (Approximate), Ascites Chronic Expires: 03/04/2023 Basic Metabolic Lab Routine High Risk Medication Expe cted: Panel 12/02/2021 (Approximate), Expires: 03/04/2023 Scheduled Procedures Name Priority Associated Diagnoses Date/Time ESOPHAGOGASTRODUODENOSCOPY Cirrhosis Alc oholic (HCC) Hypertension Portal (HCC) ESOPHAGOGASTRODUODENOSCOPY Cirrhosis Alc oholic (HCC) Ascites Anemia Macrocytic Thrombocytopenia (HC C) Deficiency Coagulation Acquired (HCC) Scheduled Referrals Name Type Priority Associated Diagnoses Order [facility] Internal Outpatient Referral Routine Ex pected: Medicine office 12/16/2021 visit (clinic) (Approximate) , Expires: 03/04/2023 Sleep Medicine - Outpatient Referral Routine Insomnia Expe cted: General consult 12/02/2021 (clinic) (Approximate), Expires: 03/04/2023 documented as of this encounter Visit Diagnoses Diagnosis Acute And Subacute Hepatic Failure Witho ut Coma (HCC) - Primary Pancreatitis Chronic (HCC) Residential Use Of Opiate Analgesic Alcohol Use Unspecified With Unspecified Alcohol Induced Disorder (HCC) Alcoholic Cirrhosis Of Liver Without Asc ites (HCC) Ascites Chronic Insomnia High Risk Medication documented in this encounter Additional Health Concerns Assessment Noted Time PHQ-9 Depression Total Score: 10 10/06/2021 5:00 PM CD T documented as of this encounter Care Teams General Claims Agent Relationship Specialty Start Date End Date Ana Red P.A.-C. PCP - General Internal Medicine 12/01/[address] [place] [phone] [facility] [place] lab 08/25/21 Ervin Schroeder MD Referring Provider Family Medicine 03/24/[address] [place] [phone] documented as of this encounter
--- OUTSIDE RECORDS SUMMARY | 2021-12-28 23:25 | XMS_ITS | Encounter Summary ---
:1990 Author Organization [facility] Address [address] [place] [address] Care Team Providers Name Role Phone Ana Red P.A.-C. Primary Care Provider [phone] Encounter Details Date Type Department Care Team Description 12/04/2021 Clinical Communication Division of [facility], Gastroenterology in [facility] [place], [place] [address] [facility] [address] [place] [phone] Social History Tobacco Use Types Packs/Day Years [...] or relatives? How often do you attend islam or Never 2021 roman catholic services? Do you belong to any clubs or No 07/17/2021 organizations such as islam groups, unions, fraternal or athletic groups, or [...] place to sleep or slept in a correction (including now)? Education Answer Date Recorded What is the highest level of school Associate degree: ruth barker, 07/16/2021 you have completed or the highest technical, or vocational p jonnyram degree you have received? 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 [address] [place] [phone] (Wo rk) 01/12/2022 Appointment Laboratory Medicine Matthew Jerome M.B.BSumaS., M.D. [address] [place] [phone] (Wo rk) 01/12/2022 Appointment Laboratory Medicine Adeline Frazier M.D., Ph.D. [address] [place] [phone] (Wo rk) 01/13/2022 Telemedicine Transplant Joel Tan L.I.C.S.W., M.S. W. [address] [place] [phone] (Wo rk) 01/13/2022 Telemedicine Transplant Matthew Jerome M.B.B.S., M.D. [address] [place] [phone] (Wo rk) 01/13/2022 Telemedicine Transplant Adeline Frazier M.D., Ph.D. [address] [place] [phone] (Wo rk) 01/28/2022 Office Visit Gastroenterology and Matthew Jerome, Hepatology VikBGraeme, MC[place]. [address] [place] [phone] (Wo rk) Scheduled Procedures Name Priority Associated [...] documented as of this encounter Care Teams Engineering Programmer Relationship Specialty Start Date End Date Ana Red P.A.-C. PCP - General Internal Medicine 12/01/[address] [place] [phone] [facility] [facility] 08/25/21 Ervin Schroeder MD Referring Provider Family Medicine 03/24/[address] [place] [phone] documented as of this encounter
--- OUTSIDE RECORDS SUMMARY | 2021-12-28 23:25 | XMS_ITS | Encounter Summary ---
:1990 Author Organization [facility] Address [address] [place] [address] Care Team Providers Name Role Phone Ana Red P.A.-C. Primary Care Provider [phone] Encounter Details Date Type Department Care Team Description 12/04/2021 Clinical Communication Division of [facility], Gastroenterology in [place], [place] [address] [facility] [address] [place] [phone] Social History Tobacco Use Types Packs/Day Years [...] or relatives? How often do you attend episcopal or Never 2021 hinduism services? Do you belong to any clubs or No 07/17/2021 organizations such as episcopal groups, unions, fraternal or athletic groups, or [...] place to sleep or slept in a alf (including now)? Education Answer Date Recorded What is the highest level of school Associate degree: ruth barker, 07/16/2021 you have completed or the highest technical, or vocational p jonnyram degree you have received? 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 [address] [place] [address] (Wo rk) 01/12/2022 Appointment Laboratory Medicine Matthew Jerome M.B.BSumaS., M.D. [address] [place] [phone] (Wo rk) 01/12/2022 Appointment Laboratory Medicine Adeline Frazier M.D., Ph.D. [address] [place] [phone] (Wo rk) 01/13/2022 Telemedicine Transplant Joel Tan L.I.C.S.W., M.S. W. [address] [place] [address] [phone] (Wo rk) 01/13/2022 Telemedicine Transplant Matthew Jerome M.B.B.S., M.D. [address] [place] [phone] (Wo rk) 01/13/2022 Telemedicine Transplant Adeline Frazier M.D., Ph.D. [address] [place] [phone] (Wo rk) 01/28/2022 Office Visit Gastroenterology and Matthew Jerome, Hepatology VikBGraeme, MSumaD. [address] [place] [phone] (Wo rk) Scheduled Procedures Name Priority Associated [...] documented as of this encounter Care Teams Outside Sales Engineer Relationship Specialty Start Date End Date Ana Red P.A.-C. PCP - General Internal Medicine 12/01/[address] [place] [phone] [facility]- [place] lab 08/25/21 Ervin Schroeder MD Referring Provider Family Medicine 03/24/[address] [place] [phone] documented as of this encounter
--- OUTSIDE RECORDS SUMMARY | 2021-12-28 23:25 | XMS_ITS | Encounter Summary ---
:1990 Author Organization [facility] Address [address] [place] [address] Care Team Providers Name Role Phone Ana Red P.A.-C. Primary Care Provider Reason for Referral Specialty Diagnoses / Procedures Referred By Contact Refer red To Contact Ana Red P .A.-C. [facility] [address] [place] [address] Referral ID Status Reason Start Date Expiration Date Visits Requ ested Visits Authorized Encounter Details Date Type Department Care Team Description 12/03/2021 Orders Only [facility] Ana Red P.A.-C. [address] [place], [place] [phone] (Wo rk) Social History [...] do you attend islam or Never 2021 uatsdin services? Do you belong to any clubs [...] place to sleep or slept in a residential (including now)? Education Answer Date Recorded What is the highest level of school Associate degree: ruth barker, 07/16/2021 you have completed or the highest technical, or vocational p jonnyram degree you have received? 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 [address] [place] [address] ADI PANIAGUA [phone] (Wo rk) 01/12/2022 Appointment Laboratory Medicine Matthew Jerome M.B.B.S., MJules [address] [place] [phone] (Wo rk) 01/12/2022 Appointment Laboratory Medicine Adeline Frazier M.D., Ph.D. [address] [place] [phone] (Wo rk) 01/13/2022 Telemedicine Transplant Joel Tan L.I.C.S.W., M.S. W. [address] [place] [phone] (Wo rk) 01/13/2022 Telemedicine Transplant Matthew Jerome M.B.B.S., M.Slick. [address] [place] [phone] (Wo rk) 01/13/2022 Telemedicine Transplant Adeline Frazier M.D., Ph.D. [address] [place] [phone] (Wo rk) 01/28/2022 Office Visit Gastroenterology and Matthew Jerome, Hepatology Tyrell, MJules [address] [place] [phone] (Wo rk) Scheduled Procedures Name Priority Associated Diagnoses Date/Time ESOPHAGOGASTRODUODENOSCOPY Cirrhosis Alc oholic (HCC) Hypertension Portal (HCC) ESOPHAGOGASTRODUODENOSCOPY Cirrhosis Alc oholic (HCC) Ascites Anemia Macrocytic Thrombocytopenia (HC C) Deficiency Coagulation Acquired (HCC) Scheduled Referrals Name Type Priority Associated Order Schedule Diagnoses Covid immunization Outpatient Referral Routine Ex pected: office visit 12/03/2021 Immuno/Booster (Approximate) , Expires: 12/03/2022 documented as of this encounter Visit Diagnoses Not on filedocumented in this encounter Additional Health Concerns Assessment Noted Time PHQ-9 Depression Total Score: 10 10/06/2021 5:00 PM CD T documented as of this encounter Care Teams Java J2Ee Architect Relationship Specialty Start Date End Date Ana Red P.A.-C. PCP - General Internal Medicine 12/01/[address] [place] [phone] [facility]- Pending sale to [facility] 08/25/21 rEvin Schroeder MD Referring Provider Family Medicine 03/24/[address] [place] [phone] documented as of this encounter
--- OUTSIDE RECORDS SUMMARY | 2021-12-28 23:25 | XMS_ITS | Encounter Summary ---
:1990 Author Organization [facility] Address [address] [place] [address] Care Team Providers Name Role Phone Ana Red P.A.-C. Primary Care Provider [phone] Encounter Details Date Type Department Care Team Description 12/02/2021 Clinical Communication Division of [facility] Slick Andino, Internal Medicine, MCee., [facility] [address] [place] [address] [place] [phone] [place], [place] [phone] (Work) [phone] Social History Tobacco Use Types Packs/Day Years [...] or relatives? How often do you attend christianity or Never 2021 scientologist services? Do you belong to any clubs or No 07/17/2021 organizations such as christianity groups, unions, fraternal or athletic groups, or [...] place to sleep or slept in a fpc (including now)? Education Answer Date Recorded What is the highest level of school Associate degree: ruth barker, 07/16/2021 you have completed or the highest technical, or vocational p rolf degree you have received? 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 300 [facility] [place] [phone] (Wo rk) 01/12/2022 Appointment Laboratory Medicine Matthew Jerome M.B.BSumaSSuma, MSumaDSuma [address] [place] [phone] (Wo rk) 01/12/2022 Appointment Laboratory Medicine Adeline Frazier M.D., Ph.D. [address] [place] [address] [phone] (Wo rk) 01/13/2022 Telemedicine Transplant Joel Tan L.I.C.S.W., M.S. W. [address] [place] [phone] (Wo rk) 01/13/2022 Telemedicine Transplant Matthew Jerome M.B.BSumaSSuma, M.D. [address] [place] [phone] (Wo rk) 01/13/2022 Telemedicine Transplant Adeline Frazier M.D., Ph.D. [address] [place] [address] [phone] (Gwendolyn rk) 01/28/2022 Office Visit Gastroenterology and Matthew Jerome, Hepatology JoshuaB.B.SSuma, M.DSuma [address] [place] [phone] (Gwendolyn rk) Scheduled Procedures Name Priority [...] documented as of this encounter Care Teams Director Of Casino Marketing Relationship Specialty Start Date End Date Ana Red P.A.-C. PCP - General Internal Medicine 12/01/[address] [place], [place] [address] [phone] [facility]- [place] lab 08/25/21 Ervin Schroeder MD Referring Provider Family Medicine 03/24/[address] [place] [phone] documented as of this encounter
--- OUTSIDE RECORDS SUMMARY | 2021-12-28 23:25 | XMS_ITS | Encounter Summary ---
:[address] [facility] Address [address] [place] [address] Care Team Providers Name Role Phone Ana Red P.A.-C. Primary Care Provider [phone] Encounter Details Date Type Department Care Team Description 12/02/2021 Clinical Communication Pharmacy Prior Auth Jasmyne Keller [phone] Social History Tobacco Use Types Packs/Day Years [...] or relatives? How often do you attend nondenominational or Never 2021 orthodoxy services? Do you belong to any clubs or No 07/17/2021 organizations such as nondenominational groups, unions, fraElepago or athletic groups, or school groups? 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 The patient's health insurer has denied prior authorization for LIDOCAINE 5% PATCH. A quick view of the denial reason is in this communication message. To view the denial letter: Go to Snapshot Go to the purple Medications box Click on the blue Prior Authorizations link Under Denied, click on the blue medication link to open and view the attachment. As the prescriber, your options are: Appeal the decision to the insurer directly (see denial letter for how to appeal). Write a new Rx for an alternative medication therapy. Release the Rx to the pharmacy so the patient can pay out of pocket if they desire. To Release Rx: Open this encounter, go to Meds & Orders, click on the medication, and click the blue Release Rx button. PLEASE NOTE: If the Release Rx button is not visible, the Rx has already been released to the pharmacy. If you have questions, please reply via QuickNote to Shanita AN. Thank you, The OPPA Team documented in this encounter Plan of Treatment Upcoming Encounters Date Type Specialty Care Team Description 01/07/2022 Office Visit Community Internal Medicine Ranjit Red P.A.-C. [address] [place] [phone] (Wo rk) 01/12/2022 Appointment Laboratory Medicine Matthew Jerome M.B.B.S., M.Slick. [address] [place] [phone] (Wo rk) 01/12/2022 Appointment Laboratory Medicine Adeline Frazier M.D., Ph.D. [address] [place] [phone] (Wo rk) 01/13/2022 Telemedicine Transplant Joel Tan L.I.CSumaSSumaW., M.S. W. [address] [place] [phone] (Wo rk) 01/13/2022 Telemedicine Transplant Matthew Jerome M.B.B.S., M.D. [address] [place] [phone] (Wo rk) 01/13/2022 Telemedicine Transplant Adeline Frazier M.D., Ph.D. [address] [place] [phone] (Wo rk) 01/28/2022 Office Visit Gastroenterology and Matthew Jerome, Hepatology FredySSuma, M.D. [address] [place] [phone] (Wo rk) Scheduled Procedures Name Priority Associated [...] documented as of this encounter Care Teams Turn Down Attendant Relationship Specialty Start Date End Date Ana Red P.A.-C. PCP - General Internal Medicine 12/01/[address] [place] [phone] [facility]- [place] lab 08/25/21 Ervni Schroeder MD Referring Provider Family Medicine 03/24/[address] [place] [phone] documented as of this encounter
--- OUTSIDE RECORDS SUMMARY | 2021-12-28 23:25 | XMS_ITS | Encounter Summary ---
:1990 Author Organization [facility] Address [address] [place] [address] Care Team Providers Name Role Phone Ana Red P.A.-C. Primary Care Provider [phone] Reason for Visit Reason Comments Post Hospital Follow-up Encounter Details Date Type Department Care Team Description 12/02/2021 Clinical Communication Department of [facility] Internal Ciara Johnson, RSumaNSuma Follow-up Medicine in [address] [place] [phone] 300 [facility] [phone] [place], [place] (Work) [phone] Social History Tobacco Use Types Packs/Day [...] or relatives? How often do you attend tenriism or Never 2021 sikhism services? Do you belong to any clubs or No 07/17/2021 organizations such as tenriism groups, unions, fraTimeliner or athletic groups, or school groups? How [...] place to sleep or slept in a mcc (including now)? Education Answer Date Recorded What is the highest level of school Associate degree: ruth barker, 07/16/2021 you have completed or the highest technical, or vocational p rolf degree you have received? 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 - 12/02/2021 12:44 PM CDT Patient seen today 12/02 at 11:00 for PHFU- no further action at this time. Telephone Encounter - Ciara Donato R.N. - 12/02/2021 7:45 AM CDT Catia Carias is not eligible for the Adult Medical Care Coordination Program and needs the PHFU call to be completed. Patient was dismissed from the hospital on 11/26 at 1346. documented in this encounter Plan of Treatment Upcoming Encounters Date Type Specialty Care Team Description 01/07/2022 Office Visit Community Internal Medicine Ranjit Red P.A.-C. [address] [place] [phone] (Wo rk) 01/12/2022 Appointment Laboratory Medicine Matthew Jerome M.B.B.S., MSumaD. [address] [place] [phone] (Wo rk) 01/12/2022 Appointment Laboratory Medicine Adeline Frazier M.D., Ph.D. [address] [place] [phone] (Wo rk) 01/13/2022 Telemedicine Transplant Joel Tan L.I.C.SSumaW., M.S. W. [address] [place] [phone] (Wo rk) 01/13/2022 Telemedicine Transplant Matthew Jerome M.B.B.SSuma, M.D. [address] [place] [phone] (Wo rk) 01/13/2022 Telemedicine Transplant Adeline Frazier M.D., Ph.D. [address] [place] [phone] (Wo rk) 01/28/2022 Office Visit Gastroenterology and Matthew Jerome, Hepatology Tyrell, MCee. [address] [place] [address] [phone] (Wo rk) Scheduled Procedures Name Priority Associated [...] documented as of this encounter Care Teams Directory Compiler Relationship Specialty Start Date End Date Ana Red P.A.-C. PCP - General Internal Medicine 12/01/[address] [place] [phone] [facility]- [place] lab 08/25/21 Ervin Schroeder MD Referring Provider Family Medicine 03/24/[address] [place] [address] [phone] documented as of this encounter
--- OUTSIDE RECORDS SUMMARY | 2021-12-28 23:25 | XMS_ITS | Encounter Summary ---
:1990 Author Organization [facility] Address [address] [place] [address] Care Team Providers Name Role Phone Ana Red P.A.-C. Primary Care Provider Reason for Visit Reason Comments Abdominal Distention Encounter Details Date Type Department Care Team Description 12/04/2021 Emergency [facility] [place], Ascites (Primary Dx); Emergency Department Abdullahi Mendez M.D. Insomnia [address] [place] [address] [address] [place] [id number] [phone] (Wo rk) Social History Tobacco Use Types [...] or relatives? How often do you attend uatsdin or Never 2021 cheondoism services? 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 - 12/04/2021 8:52 AM CDT THANK YOU We know that coming to the emergency department is a big decision and we are grateful that you trusted us with your health. There are many folks who help care for you that you see and many more you don???t see like those who are processing your blood and imaging tests, or keeping our place clean and safe; from all of us, thank you and may God bless you in all that you do. If we did a good job for you and your family, it will help us to hear it by calling the Office of Patient Experience at [phone]. If we can do better, please let us know that too. AttachmentsThe following attachments cannot be sent through Care Everywhere. Paracentesis Care After (Citizen [place])Ascites ([place]izen [place])Trazodone Tablets ([place]izen [place]) documented in this encounter Medications at Time of Discharge Medication Sig Dispensed Refills Start Date End Date traZODone (DESYREL) 50 Take 1 tablet (50 mg 10 tablet 0 08/2021 mg tablet total) by mouth at bedtime as needed for sleep for up to 10 doses. diclofenac sodium Apply 2 g topically 4 [...] Take 1 capsule (220 28 capsule 0 08/06/202112/30/2021 220 (50 mg zinc) mg total) by [...] daily for documented as of this encounter Progress Notes Vahe Jorge, R.R.Jt., L.R.T. - 12/04/2021 9:43 AM CDT RT called for Nitrous oxide sedation for anxiety during procedure. Pt. Started on 50% , then decreased to 30%, then back up to 40%. Following procedure, pt. Was given 100% fio2 for 5 minutes. Pt. Awakeand alert, RT no longer needed. documented in this encounter Procedure Notes Blanquita Dawn M.D. - 12/04/2021 9:57 AM CDTAssociated Order(s): Paracentesis Procedure Paracentesis Date/Time: 12/04/2021 9:57 AM Performed by: Blanquita Dawn M.D. Authorized by: Abdullahi Zuniga M.D. PROCEDURE DETAILS Equipment: paracentesis tray Needle gauge: 20 Ultrasound image guidance used to localize target, identify at risk structures, and dynamically usedto direct therapy to the target. Image(s) acquired and saved. Puncture site: right lower quadrant Fluid removed amount (mL): 3L Fluid appearance: clear CONSENT Consent obtained: verbal Consent given by: patient The benefits, risks and alternatives to the procedure and the potential need for sedation or anesthesia as well as the names, roles, and responsibilities of healthcare team members performing significant interventional tasks were discussed with [...] Albumin replacement: none Procedure completed successfully: yes Complications: no apparent complications Blanquita Dawn M.D. Resident 12/04/21 0959 documented in this encounter ED Notes Juan Grady Jr., R.N. - 12/04/2021 8:51 AM CDT Patient presents with swollen distended abdomen and is requesting a paracentesis. Juan Grady Jr., R.N. 12/25/21 1608 Abdullahi Zuniga M.D. - 12/04/2021 8:50 AM CDT I was present for the critical portion of the procedure(s) performed by the resident, Paracentesis I saw the patient with the medical student. I was present for or re-performed the History of PresentIllness. I personally performed a Physical Exam and Medical Decision Making. I reviewed medical student documentation and agree or amended. ED Course as of 12/09/212136 [facility] Dec 04, 2021 0843 LFTs are consistent with prior values. Electrolytes are okay, hemoglobin is 8 which is consistent with prior studies negative, INR 2.8, blood gas shows normal acid base balance. 0856 Electrolytes are okay. The bicarb is a little bit low on the electrolytes, but benign on the VBG. 0933 We are getting normal appearing yellow translucent ascitic fluid. Nitrous oxide is really helping with anxiolytics this. We had stopped the temporal leads thinking she was doing well but will restart it. Final Diagnoses: as of 12/09/212136 Ascites Insomnia The patient is a 31-year-old woman with alcoholic cirrhosis who gets frequent large volume paracentesis presenting because she was unable to get her last 1. She does not have any new abdominal pain butjust has distension. No other new acute symptoms. She is a bit anxious about having a paracentesis and so we will use nitrous oxide as an aide for anxiolysis here. Point of care ultrasound revealed free fluid within the abdomen. Abdullahi Zuniga M.D. 12/04/21 0851 Abdullahi Zuniga M.D. 12/09/212136 Wolfgang Hollingsworth - 12/04/2021 8:32 AM CDT SUBJECTIVE CHIEF COMPLAINT/REASON FOR VISIT Abdominal Distention HISTORY OF PRESENT ILLNESS The patient is a 31 y/o female who presented for evaluation of worsening abdominal distension for the past week and a half. The patient has a history of alcoholic cirrhosis and liver failure and regularly receives paracentesis to drain the fluid. Her last paracentesis was on 10/25/21 and she had had sig nificant fluid accumulation since. The patient is otherwise asymptomatic and denies any pain, changes in her bowel movements, fevers chills or missing her home medications. She states that she is roughly 6 pounds over her dry weight currently. She also states she does not know how much fluid is normally removed during her paracentesis but she states it is typically multiple liters. The patient also reported difficulty sleeping over the past few months and has tried melatonin at home with minimal relief. She states she has been evaluated by her primary care physician but has not been prescribed anything to help her sleep in the past. 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 Eyes: Negative for pain and redness. Respiratory: Negative for apnea, cough, chest tightness and shortness of breath. Cardiovascular: Negative for chest pain, palpitations and leg swelling. Gastrointestinal: Positive for abdominal distention. Negative for abdominal pain, blood in stool, constipation, diarrhea, nausea and vomiting. Genitourinary: Negative for dysuria, frequency, hematuria and urgency. Musculoskeletal: Negative for arthralgias, back pain, neck pain and extremity pain. Skin: Negative for color change, pallor and rash. Neurological: Negative for seizures, syncope, light-headedness, headaches and loss of balance. Psychiatric/Behavioral: Negative for agitation, behavioral problems, confusion and depression. The patient is nervous/anxious. OBJECTIVE Initial Vitals Temperature Pulse Rate Heart Rate Resp Rate Blood Pressure SpO2 12/04/21 0443 12/04/21 0443 -- 12/04/21 0443 12/04/21 0443 12/04/21 044 36.6 ??C 85 17 116/68 99 % Pain Score 12/04/21 0800 0 - No pain PHYSICAL EXAMINATION Constitutional: Nursing note and vitals reviewed. She appears not lethargic. HENT: Head: Normocephalic and atraumatic. Mouth/Throat: Mucous membranes are moist. Eyes: Pupils are equal, round, and reactive to light. Scleral icterus noted Neck: Neck supple. Cardiovascular: Normal rate, regular rhythm, S1 normal and S2 normal. Exam reveals no gallop and no friction rub. Pulses are strong and palpable. Murmur heard.Capillary refill: takes less than 3 seconds Systolic ejection murmur Pulmonary/Chest: Effort normal and breath sounds normal. There is normal air entry. No tachypnea. Norespiratory distress. Abdominal: Soft. Bowel sounds are normal. exhibits distension.exhibits no mass. There is no abdominal tenderness. There is no rebound and no guarding. Musculoskeletal: General: No tenderness, deformity or edema. Normal range of motion. Cervical back: Normal range of motion and neck supple. Neurological: Alert and oriented to person, place, and time. Skin: Skin is warm and dry. She is not diaphoretic. There is jaundice. Psychiatric: She has a normal mood and affect. Behavior is normal. Judgment and thought content normal. ASSESSMENT/PLAN IMPRESSION AND PLAN The patient is a 31 y/o female who presented for evaluation of worsening abdominal distension for the past 10 days. The patient has a history of therapeutic paracentesis and received her last one on 10/25/21. On her physical exam the patient was noted to have abdominal distension without any significant tenderness. The patient will receive baseline lab work to evaluate her liver function and test for bleeding diathesis. A therapeutic paracentesis will be preformed in the ED. Concern for SBP is low atthis time due to the patient not showing objective signs of infection as well as reporting no symptoms associated with SBP such as fevers, chill, or abdominal tenderness. A therapeutic paracentesis was preformed without complications and removed 3 liters of clear straw colored fluid. The patient reports significant improvement following the procedure in her distension and the feeling of pressure. She also reported an improvement in her work of breathing. Her abdomen was notably less distended and soft and non-tender following resolution of the procedure. See procedurenote for further details. The patient was informed of the possible late complications of the procedure and was given extensivereturn precautions including but not limited to syncope, chest pain, abdominal pain, fever or other concerning medical problems. She was also given a short course of trazodone to help with her insomniaand was instructed to follow up with her primary care physician for refills and further evaluation. The patient reported understanding of these precautions and stated she wished ot be discharged. The patient was discharged home in stable condition following the procedure and was able to ambulate out of the ED. DIFFERENTIAL DIAGNOSIS Ascites, spontaneous bacterial peritonitis, insomnia. I reviewed previous medical records including lab results and documentation from previous visits. I personally reviewed the lab result(s) and my interpretation is documented in ED Course. I independently reviewed the ECG tracing and my interpretation is documented in ED Course, with the following comments: Not obtained.CPR: No CPR performed. Without any significant tenderness Final Diagnoses: as of 12/04/21 1029 Ascites Insomnia Wolfgang Hollingsworth 12/04/21 1119 documented in this encounter Plan of Treatment Upcoming Encounters Date Type Specialty Care Team Description 01/07/2022 Office Visit Community Internal Medicine Ranjit Red P.A.-C. [address] [place] [address] (Gwendolyn rahman) 01/12/2022 Appointment Laboratory Medicine Matthew Jerome M.B.B.S., M.D. [address] [place] [address] (Gwendolyn rahman) 01/12/2022 Appointment Laboratory Medicine Adleine Frazier M.D., Ph.D. [address] [place] [phone] (Gwendolyn rahman) 01/13/2022 Telemedicine Transplant Joel Tan L.I.C.S.W., M.S. W. [address] [place] [phone] (Gwendolyn rahman) 01/13/2022 Telemedicine Transplant Matthew Jerome M.B.B.S., Lilain [address] [place] [phone] (Gwendolyn rahman) 01/13/2022 Telemedicine Transplant Adeline Frazier M.D., Ph.D. [address] [place] [address] (Gwendolyn rk) 01/28/2022 Office Visit Gastroenterology and Matthew Jerome, Hepatology Tyrell, Lilian [address] [place] [address] (Gwendolyn rahman) Scheduled Procedures Name Priority Associated Diagnoses Date/Time ESOPHAGOGASTRODUODENOSCOPY Cirrhosis Alc oholic (HCC) Hypertension Portal (HCC) ESOPHAGOGASTRODUODENOSCOPY Cirrhosis Alc oholic (HCC) Ascites Anemia Macrocytic Thrombocytopenia (HC C) Deficiency Coagulation Acquired (HCC) documented as of this encounter Procedures Procedure Name Priority Date/Time Associated Comments Diagnosis PARACENTESIS Routine 12/04/2021 9:57 AM Results f or this CDT procedure are i n the results section. NITROUS OXIDE Routine 12/04/2021 9:46 AM CDT PATIENT STATUS STAT 12/04/2021 7:30 AM Results for this CDT procedure are i n the results section. HEPATIC FUNCTION STAT 12/04/2021 7:30 AM Resul ts for this PANEL, S CDT procedure are i n the results section. PROTHROMBIN TIME STAT 12/04/2021 7:30 AM Resul ts for this (PT), P CDT procedure are i n the results section. CBC WITH STAT 12/04/2021 7:30 AM Results f or this DIFFERENTIAL, B CDT procedure ar e in the results section. HUMAN CHORIONIC STAT 12/04/2021 7:30 AM Result s for this GONADOTROPIN (HCG), CDT procedur e are in EDDI, the results section. LIPASE, S/P STAT 12/04/2021 7:30 AM Results f or this CDT procedure are i n the results section. VENOUS BLOOD GAS STAT 12/04/2021 7:30 AM Resul ts for this W/COOX, B CDT procedure are i n the results section. BASIC METABOLIC STAT 12/04/2021 7:30 AM Result s for this PANEL, S/P CDT procedure are i n the results section. documented in this encounter Results Paracentesis (12/04/2021 9:57 AM CDT) Narrative Blanquita [...] ?? Complications: no apparent complications ?? Abdullahi R Bellamkonda M.D. PROCEDURE/MINOR SURGICAL ORDERABLES Patient Status (12/04/2021 7:30 AM CDT) athologist Signature FIO2 0.21 0.21=AIR 12/04/2021 [facility] 7:34 AM CDT Spont. 18 12/04/2021 [facility] breaths/min 7:34 AM CDT Specimen Anatomical Collection Method Collection Time Receive d Time (Source) Location / / Volume Laterality Blood 12/04/2021 7:30 AM 7:34 CDT AM CDT Sree Goodman M.D., M.A. LAB BLOOD NON ADD-ON Performing Organization Address [facility] Phon e Number [facility] - [address] [place], [place] [address] [place] [address] [facility] hCG (Human Chorionic Gonadotropin), Quantitative, (12/04/2021 7:30 AM CDT) athologist Signature HCG, <0.5 <5 IU/L 12/04/2021 [facility] Quantitative, 7:51 AM CDT , P Specimen Anatomical Collection Method Collection Time Receive d Time (Source) Location / / Volume Laterality Blood (Blood, 12/04/2021 7:30 AM 12/05/19 7:34 Venous) CDT AM CDT Sree Goodman M.D., M.A. LAB BLOOD ADD-ON Performing Organization Address City/[facility] Phon e Number [facility] - [address] [place], [place] [address] [place] [address] [facility]-[address] (ABNORMAL) Prothrombin Time (PT) (12/04/2021 7:30 AM CDT) [facility] gist Method Time Signature Prothrombin 31.1 (H) 9.4 - 12.5 12/04/2021 [facility] Time, P sec 7:44 AM CDT INR 2.8 0.9 - 1.1 12/04/2021 [facility] 7:44 AM CDT Comment: ----ADDITIONAL INFORMATION---- Standard intensity warfarin therapeutic range: 2.0 to 3.0 ?? High intensity warfarin therapeutic rang e: 2.5 to 3.5 Specimen Anatomical Collection Method Collection Time Receive d Time (Source) Location / / Volume Laterality Blood (Blood, 12/04/2021 7:30 AM 12/05/19 7:34 Venous) CDT AM CDT Sree Goodman M.D., M.A. LAB BLOOD ADD-ON Performing Organization Address [facility] Phon e Number [facility] - [address] [place], [place] [address] [facility] [place] [address] Lipase (12/04/2021 7:30 AM CDT) P athologist Signature Lipase, S 44 13 - 60 U/L 12/04/2021 8:30 DTL AM CDT Specimen Anatomical Collection Method Collection Time Receive d Time (Source) Location / / Volume Laterality Blood (Blood, 12/04/2021 7:30 AM 12/05/19 22 8:04 Venous) CDT AM CDT Sree Goodman M.D., M.A. LAB BLOOD ADD-ON Performing Organization Address City/[facility] Phon e Number [facility] - [address] [place], [place] [address] [facility] [place], [place] [id number] [place] [address] (ABNORMAL) Hepatic Function Panel (12/04/2021 7:30 AM CDT) Patholo gist Method Time Signature Bilirubin, Total, S 13.1 (H) <=1.2 12/04/2021 DTL mg/dL 8:30 AM CDT Bilirubin, Direct, S 5.0 (H) 0.0 - 0.3 12/04/2021 DTL mg/dL 8:30 AM CDT Aspartate 72 (H) 8 - 43 12/04/2021 DTL Aminotransferase U/L 8:30 AM CDT (AST), S Alanine 42 7 - 45 12/04/2021 DTL Aminotransferase U/L 8:30 AM CDT (ALT), S Alkaline 225 (H) 35 - 104 12/04/2021 DTL Phosphatase, S U/L 8:30 AM CDT Albumin, S 3.8 3.5 - 5.0 12/04/2021 DTL g/dL 8:30 AM CDT Protein, Total, S 5.4 (L) 6.3 - 7.9 12/04/2021 DTL g/dL 8:30 AM CDT Specimen Anatomical Collection Method Collection Time Receive d Time (Source) Location / / Volume Laterality Blood (Blood, 12/04/2021 7:30 AM 12/05/19 8:04 Venous) CDT AM CDT Sree Goodman M.D., M.A. LAB BLOOD ADD-ON Performing Organization Address City/State/ZIP Code Phon e Number [facility] - [address] [place], [place] [address] [facility] [place] [address] [address] [facility] (ABNORMAL) CBC with Differential, Blood (12/04/2021 7:30 AM CDT) [facility] gist Method Time Signature Hemoglobin 8.0 (L) 11.6 - 12/04/2021 [facility] 15.0 g/dL 7:37 AM CDT Hematocrit 23.8 (L) 35.5 - 12/04/2021 [facility] 44.9 % 8:05 AM CDT Erythrocytes 2.08 (L) 3.92 - 12/04/2021 [facility] 5.13 8:05 AM CDT x10(12)/L MCV 114.4 (H) 78.2 - 12/04/2021 [facility] 97.9 fL 8:05 AM CDT RBC Distrib Width 15.5 12.2 - 12/04/2021 [facility] 16.1 % 7:37 AM CDT Platelet Count 62 (L) 157 - 371 12/04/2021 [facility] x10(9)/L 7:37 AM CDT Leukocytes 5.7 3.4 - 9.6 12/04/2021 [facility] x10(9)/L 7:37 AM CDT Neutrophils 3.85 1.56 - 12/04/2021 [facility] 6.45 8:05 AM CDT x10(9)/L Lymphocytes 1.18 0.95 - 12/04/2021 [facility] 3.07 8:05 AM CDT x10(9)/L Monocytes 0.56 0.26 - 12/04/2021 [facility] 0.81 8:05 AM CDT x10(9)/L Eosinophils 0.07 0.03 - 12/04/2021 [facility] 0.48 8:05 AM CDT x10(9)/L Basophils 0.04 0.01 - 12/04/2021 [facility] 0.08 8:05 AM CDT x10(9)/L Specimen Anatomical Collection Method Collection Time Receive d Time (Source) Location / / Volume Laterality Blood (Blood, 12/04/2021 7:30 AM 12/05/19 22 7:34 Venous) CDT AM CDT Sree Goodman M.D., M.A. LAB BLOOD ADD-ON Performing Organization Address City/State/ZIP Code Phon e Number [facility] - [address] [place], [place] [address] [facility] [place] [place] [address] [address] (ABNORMAL) Basic Metabolic Panel (12/04/2021 7:30 AM CDT) P athologist Signature Potassium, P 4.5 3.6 - 5.2 12/04/2021 [facility] mmol/L 7:53 AM CDT Sodium, P 133 (L) 135 - 145 12/04/2021 [facility] mmol/L 7:53 AM CDT Chloride, P 101 98 - 107 12/04/2021 [facility] mmol/L 7:53 AM CDT Bicarbonate, P 19 (L) 22 - 29 12/04/2021 [facility] mmol/L 7:53 AM CDT Anion Gap, P 13 7 - 15 12/04/2021 [facility] 7:53 AM CDT BUN (Blood Urea 11 6 - 21 12/04/2021 [facility] Nitrogen), P mg/dL 7:53 AM CDT Creatinine 0.72 0.59 - 12/04/2021 DTL 1.04 mg/dL 8:53 AM CDT eGFR-Black/Afri >90 >=60 12/04/2021 DTL can [place] mL/min/BSA 8:53 AM CDT Comment: ----ADDITIONAL INFORMATION---- Estimated GFR calculated using the 2009 CKD_EPI creatinine equation. eGFR Non-Black/ >90 >=60 mL/min/BSA 8:53 AM CDT DTL Comment: ----ADDITIONAL INFORMATION---- Estimated GFR calculated using the 2009 CKD_EPI creatinine equation. Calcium, Total, P 9.0 8.6 - 10.0 mg/dL 12/04/2021 7:53 AM CDT [facility] Glucose, P 138 70 - 140 mg/dL 12/04/2021 7:53 AM CDT S [facility]MA Specimen Anatomical Collection Method Collection Time Receive d Time (Source) Location / / Volume Laterality Blood (Blood, 12/04/2021 7:30 AM 12/05/19 7:34 Venous) CDT AM CDT Sree Goodman M.D., M.A. LAB BLOOD ADD-ON Performing Organization Address City/State/ZIP Code Phon e Number [facility] - [address] [place], [place] [address] [facility] [place] [address] [address] [facility] [place] [address] [address] (ABNORMAL) Blood Gas with Coox, Venous (12/04/2021 7:30 AM CDT) [facility] Method Time Signature Venous pO2 36 Not [...] AM CDT CtO2 6.9 Not applicable 12/04/2021 [facility] vol % 7:38 AM CDT Venous Sample Venipunct 12/04/2021 [facility] Site 7:38 AM CDT Specimen Anatomical Collection Method Collection Time Receive d Time (Source) Location / / Volume Laterality Blood (Blood, 12/04/2021 7:30 AM 12/05/19 7:34 Venous) CDT AM CDT Sree Goodman M.D., M.A. LAB BLOOD NON ADD-ON Performing Organization Address City/State/ZIP Code Phon e Number [facility] - [address] [place], [place] [address] [place] [address] [address] documented in this encounter Visit Diagnoses Diagnosis Ascites - Primary Insomnia documented in this encounter Administered Medications Inactive Administered Medications - up to 3 most recent administrations Medication Order MAR Action Action Date Dose Rate Site lidocaine (XYLOCAINE) 10 Given 12/04/2021 9:46 AM 200 mg Abdominal Tissue mg/mL (1 %) injection - CDT ADS Override Pull Starting on Luz Marina 12/04/21 at 0910, For 1 dose, Created by marii olivares documented in this encounter Active and Recently Administered Medications Times are shown in CDT. No Frequency Medication Order 12/02/2021 12/03/2021 12/04/2021 lidocaine (XYLOCAINE) 10 mg/mL (1 %) injection - ADS Overrid e Pull (COMPLETED) 0946 (Given - Provider: Juan Moise R.N. - Comment: pulled at provider request prior to parasynthesis) Starting on Luz Marina 12/04/21 at 0910, For 1 dose, Created by marii elizondo documented in this encounter Additional Health Concerns Assessment Noted Time PHQ-9 Depression Total Score: 10 10/06/2021 5:00 PM CD T documented as of this encounter Care Teams Cavalry Officer Relationship Specialty Start Date End Date Ana Red P.A.-C. PCP - General Internal Medicine 12/01/[address] [place] [phone] [facility] [place] [facility] 08/25/21 Ervin Schroeder MD Referring Provider Family Medicine 03/24/[address] [place] [phone] documented as of this encounter
--- OUTSIDE RECORDS SUMMARY | 2021-12-28 23:25 | XMS_ITS | Encounter Summary ---
:1990 Author Organization [facility] Address [address] [place] [address] Care Team Providers Name Role Phone Ana Red P.A.-C. Primary Care Provider [phone] Reason for Visit Reason Comments BIANKA / Appeal Letter Encounter Details Date Type Department Care Team Description 12/03/2021 Clinical Communication Department of [facility], BIANKA / Appeal Letter [facility] Internal Lilian Gee, Medicine in [facility], [address] [place] [address] [address] [address] [place] [phone] (Work) [phone] Social History Tobacco Use Types Packs/Day Years [...] or relatives? How often do you attend congregation or Never 2021 hinduism services? Do you belong to any clubs or No 07/17/2021 organizations such as congregation groups, unions, fraPulmonx or athletic groups, or school groups? How [...] technical, or vocational p [facility] degree you have received? 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 Gerard Andino's 12/03 appeal letter was faxed to [phone], confirmation was received documented in this encounter Plan of Treatment Upcoming Encounters Date Type Specialty Care Team Description 01/07/2022 Office Visit Community Internal Medicine Ranjit Red P.A.-C. [address] [place] [address] ADI PANIAGUA [phone] (Wo rk) 01/12/2022 Appointment Laboratory Medicine Matthew Jerome M.B.B.SSuma, MCee. [address] [place] [address] [phone] (Wo rk) 01/12/2022 Appointment Laboratory Medicine Adeline Frazier M.D., Ph.D. [address] [place] [phone] (Wo rk) 01/13/2022 Telemedicine Transplant Joel Tan L.I.C.S.W., M.S. W. [address] [place] [address] [phone] (Wo rk) 01/13/2022 Telemedicine Transplant Matthew Jerome M.B.B.SSuma, M.D. [address] [place] [phone] (Wo rk) 01/13/2022 Telemedicine Transplant Adeline Frazier M.D., Ph.D. [address] [place] [phone] (Wo rk) 01/28/2022 Office Visit Gastroenterology and Matthew Jerome, Hepatology VikBSumaSSuma, MJules [address] [place] [phone] (Wo rk) Scheduled Procedures Name Priority Associated [...] documented as of this encounter Care Teams Psych Therapist Relationship Specialty Start Date End Date Ana Red P.A.-C. PCP - General Internal Medicine 12/01/[address] [place] [phone] [facility]- [place] lab 08/25/21 Ervin Schroeder MD Referring Provider Family Medicine 03/24/[address] [place] [phone] documented as of this encounter
--- OUTSIDE RECORDS SUMMARY | 2021-12-28 23:25 | XMS_ITS | Encounter Summary ---
:1990 Author Organization [facility] Address [address] [place] [address] Care Team Providers Name Role Phone Ana Red P.A.-C. Primary Care Provider [phone] Encounter Details Date Type Department Care Team Description 12/04/2021 Clinical Communication Division of [facility], Gastroenterology in [place] Echevarria [place], [place] [address] [facility] [address] [place] [address] [phone] Social History Tobacco Use Types Packs/Day Years [...] or relatives? How often do you attend religious or Never 2021 taoist services? 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 [address] [place] [address] (Wo rk) 01/12/2022 Appointment Laboratory Medicine Matthew Jerome M.B.BSumaS., M.D. [address] [place] [phone] (Wo rk) 01/12/2022 Appointment Laboratory Medicine Adeline Frazier M.D., Ph.D. [address] [place] [phone] (Wo rk) 01/13/2022 Telemedicine Transplant Joel Tan L.I.C.S.W., M.S. W. [address] [place] [address] [phone] (Wo rk) 01/13/2022 Telemedicine Transplant Matthew Jerome M.B.B.S., M.D. [address] [place] [phone] (Wo rk) 01/13/2022 Telemedicine Transplant Adeline Frazier M.D., Ph.D. [address] [place] [phone] (Wo rk) 01/28/2022 Office Visit Gastroenterology and Matthew Jerome, Hepatology VikBGraeme, MCee. [address] [place] [phone] (Wo rk) Scheduled Procedures Name Priority Associated [...] documented as of this encounter Care Teams Ware Finisher Relationship Specialty Start Date End Date Ana Red P.A.-C. PCP - General Internal Medicine 12/01/[address] [place] [phone] [facility]- [place] lab 08/25/21 Ervin Schroeder MD Referring Provider Family Medicine 03/24/[address] [place] [phone] documented as of this encounter
--- OUTSIDE RECORDS SUMMARY | 2021-12-28 23:25 | XMS_ITS | Encounter Summary ---
:1990 Author Organization [facility] Address [address] [place] [address] Care Team Providers Name Role Phone Ana Red P.A.-C. Primary Care Provider [phone] Encounter Details Date Type Department Care Team Description 12/02/2021 Clinical Communication Department of Internal [facility] Medicine in [facility], [employer] [address] [facility] [place] [phone] Social History Tobacco Use Types Packs/Day Years [...] do you attend mormon or Never 2021 jainism services? Do you belong to any clubs or No 07/17/2021 organizations such as mormon groups, unions, fraBellybaloo or athletic groups, or school groups? How [...] place to sleep or slept in a care home (including now)? Education Answer Date Recorded What is the highest level of school Associate degree: ruth barker, 07/16/2021 you have completed or the highest technical, or vocational p rolf degree you have received? 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 Telephone Encounter - Sunny Arnold D.O. - 12/03/2021 10:06 AM CDT Please schedule at the 1st available facility, the patient does have transportation. Please call andoffer the 1st available appointment in the region. Electronically signed by: Sunny Arnold D.O. 12/03/21 10:06 AM CDT Telephone Encounter - Sravanidick Lia Jagdeep - 12/02/2021 2:34 PM CDT We are out to the for our Ultrasounds and this particular one is a 90 min doppler. Please advise as we may need to seek another facility. Thank you documented in this encounter Plan of Treatment Upcoming Encounters Date Type Specialty Care Team Description 01/07/2022 Office Visit Community Internal Medicine Ranjit Red P.A.-C. [address] [place] [phone] (Gwendolyn rahman) 01/12/2022 Appointment Laboratory Medicine Matthew Jerome M.B.B.SSuma, M.D. [address] [place] [phone] (Gwendolyn rahman) 01/12/2022 Appointment Laboratory Medicine Adeline Frazier M.D., Ph.D. [address] [place] [phone] (Gwendolyn rahman) 01/13/2022 Telemedicine Transplant Joel Tan L.I.C.SSumaWSuma, M.S. W. [address] [place] [phone] (Gwendolyn rahman) 01/13/2022 Telemedicine Transplant Matthew Jerome M.B.B.SSuma, M.D. [address] [place] [address] [phone] (Gwendolyn rahman) 01/13/2022 Telemedicine Transplant Adeline Frazier M.D., Ph.D. [address] [place] [phone] (Wo rk) 01/28/2022 Office Visit Gastroenterology and Matthew Jerome, Hepatology Lilian Santillan [address] [place] [phone] (Gwendolyn rk) Scheduled Procedures Name Priority Associated [...] documented as of this encounter Care Teams Body Shop Estimator Relationship Specialty Start Date End Date Ana Red P.A.-C. PCP - General Internal Medicine 12/01/[address] [place] [phone] [facility]- [place] lab 08/25/21 Ervin Schroeder MD Referring Provider Family Medicine 03/24/[address] [place] [phone] documented as of this encounter
--- OUTSIDE RECORDS SUMMARY | 2021-12-28 23:25 | XMS_ITS | Encounter Summary ---
:1990 Author Organization [facility] Address [address] [place] [address] Care Team Providers Name Role Phone Ana Red P.A.-C. Primary Care Provider [phone] Encounter Details Date Type Department Care Team Description 11/26/2021 Clinical Communication Department of Matthew Jerome Gastroenterology in [place] [address] [place] [phone] Social History Tobacco Use Types Packs/Day Years Used Date Smoking Tobacco: Former Cigarettes 05/2009 - 10/20/2021 Smokeless Tobacco: Never Comments: [...] or relatives? How often do you attend muslim or Never 2021 evangelical services? Do you belong to any clubs or No 07/17/2021 organizations such as muslim groups, unions, fraPhilz Coffee or athletic groups, or school groups? 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 [address] [place] [phone] (Wo rk) 01/12/2022 Appointment Laboratory Medicine Matthew Jerome M.B.BSumaS., M.D. [address] [place] [phone] (Wo rk) 01/12/2022 Appointment Laboratory Medicine Adeline Frazier M.D., Ph.D. [address] [place] [phone] (Wo rk) 01/13/2022 Telemedicine Transplant Joel Tan L.I.C.S.W., M.S. W. [address] [place] [address] [phone] (Wo rk) 01/13/2022 Telemedicine Transplant Matthew Jerome M.B.B.S., M.D. [address] [place] [phone] (Wo rk) 01/13/2022 Telemedicine Transplant Adeline Frazier M.D., Ph.D. [address] [place] [phone] (Wo rk) 01/28/2022 Office Visit Gastroenterology and Matthew Jerome, Hepatology Tyrell, M.D. [address] [place] [phone] (Wo rk) Scheduled Procedures Name Priority Associated [...] documented as of this encounter Care Teams Health Professor Relationship Specialty Start Date End Date Ana Red P.A.-C. PCP - General Internal Medicine 12/01/[address] [place], [place] [address] [address] [facility]- [place] lab 08/25/21 Ervin Schroeder MD Referring Provider Family Medicine 03/24/[address] [place] [address] [phone] documented as of this encounter
--- OUTSIDE RECORDS SUMMARY | 2021-12-28 23:26 | XMS_ITS | Encounter Summary ---
:1990 Author Organization [facility] Address [address] [place] [address] Care Team Providers Name Role Phone Elsewhere, Pcp Primary Care Provider Unavailable Reason for Visit Reason Comments Covid Positive Encounter Details Date Type Department Care Team Description 11/12/2021 Clinical Department of Matthew Jeromeid Positive Communication Gastroenterology in , [facility] [address] [place] [address] [place], [place] [phone] Social History Tobacco Use Types Packs/Day Years [...] or relatives? How often do you attend congregational or Never 2021 adventist services? Do you belong to any clubs or No 07/17/2021 organizations such as congregational groups, unions, fraPhonologics or athletic groups, or school groups? 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 Jerome should I just move out the lab ? Telephone Encounter - Criselda Stevens - 11/12/2021 9:21 AM CDT Please do not reply to this message. Please forward as needed to your departments embedded scheduling team. This patient tested positive for Covid-19 on 11/12/2021. They have an appointment scheduled on 11/19/2021 at 4:00pm with Lab. [facility] guidelines recommend that this appointment be changed to a video visit or postponed until after 11/22/2021 unless medically necessary. Please review and forward to your embedded scheduling team to contact the patient to discuss their options. Thank you documented in this encounter Plan of Treatment Upcoming Encounters Date Type Specialty Care Team Description 01/07/2022 Office Visit Community Internal Medicine Ranjit Red P.A.-C. [address] [place] [phone] (Wo rk) 01/12/2022 Appointment Laboratory Medicine Matthew Jerome M.B.B.S., M.D. [address] [place] [address] [phone] (Wo rk) 01/12/2022 Appointment Laboratory Medicine Adeline Frazier M.D., Ph.D. [address] [place] [phone] (Wo rk) 01/13/2022 Telemedicine Transplant Joel Tan L.I.C.SSumaW., M.S. W. [address] [place] [address] [phone] (Wo rk) 01/13/2022 Telemedicine Transplant Matthew Jerome M.B.B.S., M.D. [address] [place] [phone] (Wo rk) 01/13/2022 Telemedicine Transplant Adeline Frazier M.D., Ph.D. [address] [place] [phone] (Wo rk) 01/28/2022 Office Visit Gastroenterology and Matthew Jerome, Hepatology yTrell, M.D. [address] [place] [phone] (Wo rk) Scheduled Procedures Name Priority Associated Diagnoses Date/Time ESOPHAGOGASTRODUODENOSCOPY Cirrhosis Alc oholic (HCC) Hypertension Portal (HCC) ESOPHAGOGASTRODUODENOSCOPY Cirrhosis Alc oholic (HCC) Ascites Anemia Macrocytic Thrombocytopenia (HC C) Deficiency Coagulation Acquired (HCC) documented as of this encounter Visit Diagnoses Not on filedocumented in this encounter Additional Health Concerns Infection Onset Date Last Indicated Resolved Time COVID19 Pending 11/12/2021 11/12/2021 11/12/2021 4:20 AM CDT [id number]: Patients who are NOT sev erely immunocompromised: Asymptomatic - At least 10 days have passed since the date of the first positive PCR test 11/12/2021 11/12/2021 11/13/2021 3:19 PM CDT and Patient has remained asymptomatic throughout their infection Assessment Noted Time PHQ-9 Depression Total Score: 10 10/06/2021 5:00 PM CD T documented as of this encounter Care Teams Briefcase Sewer Relationship Specialty Start Date End Date Elsewhere, Pcp PCP - General Family Medicine 03/10/20 11/30/21 [facility]- [place] lab 08/25/21 Ervin Schroeder MD Referring Provider Family Medicine 03/24/[address] [place] [phone] documented as of this encounter
--- OUTSIDE RECORDS SUMMARY | 2021-12-28 23:26 | XMS_ITS | Encounter Summary ---
:1990 Author Organization [facility] Address [address] [place] [address] Care Team Providers Name Role Phone Elsewhere, Pcp Primary Care Provider Unavailable Encounter Details Date Type Department Care Team Description 11/18/[address] [facility] PRE/POS T Alina Carranza R, [address] [place] [address] [phone] Social History Tobacco Use Types Packs/Day Years [...] or relatives? How often do you attend protestant or Never 2021 methodist services? 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 - 11/18/2021 8:[address] Jerome Catia is scheduled for an EGD with you on 11/24/21. She tested positive for covid on 11/09/21. Also, she is currently an inpatient in [place]. If you have concerns, please notify patient andscheduling. Thank you. documented in this encounter Plan of Treatment Upcoming Encounters Date Type Specialty Care Team Description 01/07/2022 Office Visit Community Internal Medicine Ranjit Red P.A.-C. [address] [place] [address] [place] [phone] (Wo rk) 01/12/2022 Appointment Laboratory Medicine Matthew Jerome M.B.B.S., MCee. [address] [place] [phone] (Wo rk) 01/12/2022 Appointment Laboratory Medicine Adeline Frazier M.D., Ph.D. [address] [place] [address] [phone] (Wo rk) 01/13/2022 Telemedicine Transplant Joel Tan L.I.C.S.W., M.S. W. [address] [place] [address] [phone] (Wo rk) 01/13/2022 Telemedicine Transplant Matthew Jerome M.B.B.S., MCee. [address] [place] [address] [phone] (Wo rk) 01/13/2022 Telemedicine Transplant Adeline Frazier M.D., Ph.D. [address] [place] [address] [phone] (Wo rk) 01/28/2022 Office Visit Gastroenterology and Matthew Jerome, Hepatology Tyrell, MCee. [address] [place] [phone] (Gwendolyn rk) Scheduled Procedures Name Priority [...] documented as of this encounter Care Teams Pile Fabric Knitter Relationship Specialty Start Date End Date Elsewhere, Pcp PCP - General Family Medicine 03/10/20 11/30/21 [facility]- [place] lab 08/25/21 Ervin Schroeder MD Referring Provider Family Medicine 03/24/[address] [place] [phone] documented as of this encounter
--- OUTSIDE RECORDS SUMMARY | 2021-12-28 23:26 | XMS_ITS | Encounter Summary ---
:1990 Author Organization [facility] Address [address] [place] [address] Care Team Providers Name Role Phone Elsewhere, Pcp Primary Care Provider Unavailable Reason for Referral Outpatient (Routine) - Authorized Specialty Diagnoses / Procedures Referred By Contact Refer red To Contact Nicotine Dependence Diagnoses Abuse Tobacco Smoking Ervin Schroeder [facility] Lilian [address] [place] [address] Referral ID Status Reason Start Date Expiration Date Visits V isits Requested Authorized [id number] Authorized 11/26/2021 11/26/2022 1 1 Encounter Details Date Type Department Care Team Description 11/14/2021 [facility] Ervin Schroeder Tobacco Smoking (Primary Dx); AND CLINICS TOBY Schaefer M.D. Unspecified Cirrhosis Of Liver (HCC) CLINIC [address] [facility] [address] [place], [place] [address] [phone] Social History Tobacco Use Types Packs/Day Years [...] or relatives? How often do you attend druze or Never 2021 adventism services? 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 [address] [place] [address] [place] PANIAGUA [phone] (Wo rk) 01/12/2022 Appointment Laboratory Medicine Matthew Jerome M.B.B.S., MCee. [address] [place] [phone] (Wo rk) 01/12/2022 Appointment Laboratory Medicine Adeline Frazier M.D., Ph.D. [address] [place] [phone] (Wo rk) 01/13/2022 Telemedicine Transplant Joel Tan L.I.C.SZara, M.S. W. [address] [place] [phone] (Wo rk) 01/13/2022 Telemedicine Transplant Matthew Jerome M.B.B.S., MCee. [address] [place] [phone] (Wo rk) 01/13/2022 Telemedicine Transplant Adeline Frazier M.D., Ph.D. [address] [place] [phone] (Wo rk) 01/28/2022 Office Visit Gastroenterology and Matthew Jerome, Hepatology Tyrell, Lilian [address] [place] [phone] (Wo rk) Scheduled Procedures Name Priority Associated Diagnoses Date/Time ESOPHAGOGASTRODUODENOSCOPY Cirrhosis Alc oholic (HCC) Hypertension Portal (HCC) ESOPHAGOGASTRODUODENOSCOPY Cirrhosis Alc oholic (HCC) Ascites Anemia Macrocytic Thrombocytopenia (HC C) Deficiency Coagulation Acquired (HCC) Scheduled Referrals Name Type Priority Associated Order Schedule Diagnoses Nicotine Dependence Outpatient Referral Routine Abuse Tobacco Expected: Center Referral Smoking 11/14/2021 (Approximate), Expires: 02/14/2023 documented as of this encounter Visit Diagnoses Diagnosis Abuse Tobacco Smoking - Primary Unspecified Cirrhosis Of Liver (HCC) documented in this encounter Additional Health Concerns Assessment Noted Time PHQ-9 Depression Total Score: 10 10/06/2021 5:00 PM CD T documented as of this encounter Care Teams Hand Mica Plate Layer Relationship Specialty Start Date End Date Elsewhere, Pcp PCP - General Family Medicine 03/10/20 11/30/21 [facility] 08/25/21 Ervin Schroeder MD Referring Provider Family Medicine 03/24/[address] [place] [phone] documented as of this encounter
--- OUTSIDE RECORDS SUMMARY | 2021-12-28 23:26 | XMS_ITS | Encounter Summary ---
:1990 Author Organization [facility] Address [address] [place] [address] Care Team Providers Name Role Phone Elsewhere, Pcp Primary Care Provider Unavailable Reason for Referral Outpatient (Routine) - Authorized Specialty Diagnoses / Procedures Referred By Contact Refer red To Contact Diagnoses Cirrhosis Alcoholic (HCC) Gerard Andino M.D., M.S. [address] [place] [phone] Referral ID Status Reason Start Date Expiration Date Visits V isits Requested Authorized [id number] Authorized 11/26/2021 11/26/2022 1 1 Medication Prior Authorization - Denied Specialty Diagnoses / Procedures Referred By Contact Refer red To Contact Gerard Andino M.D. , M.S. [address] [place] [phone] Referral ID Status Reason Start Date Expiration Date Visits Requ ested Visits Authorized [id number] Denied 1 1 Reason for Visit Reason Comments Altered Mental Status Auth/Cert Specialty Diagnoses / Procedures Referred By Contact Refer red To Contact Diagnoses Change Mental Status Malaise (Concern For Covid-19) Encephalopathy Procedures ETU Referral ID Status Reason Start Date Expiration Date Visits Requ ested Visits Authorized [id number] 1 1 Encounter Details Date Type Department Care Team Description 11/12/2021 - [facility] Rosaura Sevilla M.D., M.P.H. [address] [place] [address] Encephalopathy (Primary Dx); [facility] [address] [place] [address] Change Mental Status; [facility], Jody Aguilar M.B., B.Chir. [address] [place] [address] Malaise (Concern For Covid-19); Lambert Tate [facility] ([facility]) [facility], Third Floor [address] [place] [id number] Social History Tobacco Use Types Packs/Day Years [...] do you attend faith or Never 2021 orthodoxy services? 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 - 11/26/2021 10:45 AM CDT DISCHARGE SUMMARY BRIEF OVERVIEW Hospital: [facility] Discharge Provider: Aguilar, Amindra S, M.B. Primary Care Provider at Discharge: Primary Care Providers: Elsewhere, Pcp (General) No address on file Primary Care Provider Phone Number: None Primary Care Provider Fax Number: None Primary Team: [facility]ST Gastroenterology A Admission Date: 11/12/2021 Discharge Date: PRINCIPAL DIAGNOSIS Encephalopathy SECONDARY DIAGNOSES Principal Problem (Resolved): Encephalopathy Active Problems: Cirrhosis Alcoholic (HCC) Anemia Ascites Thrombocytopenia (HCC) Resolved Problems: Change Mental Status Hepatic Encephalopathy Without Coma (HCC) DISCHARGE DISPOSITION Home or Self Care [1] DISCHARGE RECOMMENDATIONS - recommend establishing care with [place] PCP to centralize care FOR PCP - recommend avoidance of neurologically active medications for [...] up with Dr. Jerome for transplant considerations OUTPATIENT FOLLOW UP Scheduled Appointments 11/26/2021 4:00 PM SHADI COUNSELOR 01 MERLYN 18 Nicotine Dependence 11/28/2021 1:30 PM LAB FB Laboratory Medicine 01/21/2022 12:15 PM Matthew Jerome M.B.B.S. [facility]. Gastroenterology and Hepatology For appointment details refer to your Patient Appointment Guide. TEST RESULTS PENDING AT DISCHARGE Pending Labs Order Current Status Bacterial Culture, Aerobic + Susc, Urine In process DETAILS OF HOSPITAL STAY REASON FOR ADMISSION Change Mental Status Malaise (Concern For Covid-19) Encephalopathy HOSPITAL COURSE Ms. Catia Carias is a 31 y.o. female who presents with altered mental status and jaundice in the setting of alcoholic cirrhosis (diagnosed 01/2021). PMH is otherwise significant for nicotine dependence, chronic pain syndrome, GERD, chronic pancreatitis, anemia, thrombocytopenia, anxiety, cannabis use, and mood disorder. She follows with Dr. Jerome in the outpatient setting undergoing transplant evaluation. Ms. Carias was discharged from the GI service on 11/11/2021. She had been hospitalized for hepatic encephalopathy due to lactulose noncompliance. Her encephalopathy had improved with lactulose. He had also undergone paracentesis on this admission which had ruled out SBP. Patient was unable to provide history on admission due to altered mental status. After discharge, apparently the patient went home and did not take any lactulose. She had 1 bowel movements throughout the day. She became progressively more confused. She was transferred via EMS to the [facility] Emergency Department. On arrival she was unable to follow commands. She was afebrile, mildly tachycardic, normotensive, and saturating well on room air. Labs were significant for hemoglobin 8.7 (up from 7.4 the day prior), stable thrombocytopenia, stable white blood cell count, INR 3.3, hyponatremia 133, total bilirubin 18(direct 9.4), ALT 18, AST 52 (35 one [...] some remaining behavioral concerns. NG tube and reynolds were removed on 11/24. Patient underwent repeat therapeutic paracentesis for comfort and nausea. Her mentation returned to baseline by 11/26/2021. Her encephalopathy was deemed to be multifactorial secondary to multiple neuro active medications, ciprofloxacin, delirium, and hepatic encephalopathy. The patient was counseled extensively about avoidance of neuro active medications to prevent additional episodes of encephalopathy, such as oxycodone, gabapentin, hydroxyzine, and ropinirole. She was very motivated in avoiding further neuro active medications and wanted to stay with topical pain control strategies. Additionally she verbalized the importance of maintaining her lactulose regimen to prevent future episodes of hepatic encephalopathy. Given concern that ciprofloxacin may have contributed to her encephalopathy, she was switched to daily Bactrim for SBP prophylaxis. PHYSICAL EXAM General: Jaundice ENT: Hearing grossly intact Lungs: Pulmonary effort is normal. No accessory muscle usage. Heart: Regular rate and rhythm. No murmurs appreciated. Abdomen: soft, nontender abdomen, mild ascites, no guarding, no flank pain Extremities: 1+ Pitting Edema present. Mental: alert, oriented x4, pleasantly communicative CONSULTS ORDERED DURING THIS ADMISSION IP CONSULT TO DIETITIAN IP CONSULT TO CARE MANAGEMENT IP CONSULT TO PALLIATIVE CARE IP CONSULT TO DIETITIAN IP CONSULT TO INTEGRATIVE MEDICINE ANIMAL ASSISTED THERAPY IP CONSULT TO NEUROLOGY IP CONSULT TO PSYCHIATRY & PSYCHOLOGY IP CONSULT TO DIETITIAN Procedures Performed: paracentesis EXAM: CT ABDOMEN PELVIS WITH IV CONTRAST COMPARISON: CT abdomen 09/22/[address] abdomen and pelvis 03/21/2021. FINDINGS: Since 09/22/2021, the volume of ascites has substantially increased and is now large. Hounsfield units of the ascites measure simple at 8 H.U. Heterogeneous hepatic parenchyma with lobulated contour consistent with history of cirrhosis. Splenomegaly with spleen length measuring 15.4 cm. Upper abdominal varices. Centrally patent portal vein. Patent splenic vein and SMV. Increased mesenteric edema. Persistent sludge or stones in the gallbladder. Pancreatic parenchymal calcifications suggestive of chronic pancreatitis. Adrenal glands and both kidneys are negative. Normal caliber small bowel. Some high attenuation material in the jejunum (series 3 image 70) is favored to be due to ingested material. IUD in place. Mild body wall edema. The osseous structures are unremarkable. Small right pleural effusion with prominent atelectasis in the right lower lobe. Mild atelectasis left lung base. IMPRESSION: 1. New large volume ascites in the abdomen and pelvis. 2. Hepatic cirrhosis with sequela of portal venous hypertension. 3. Normal caliber bowel. MR Brain without IV contrast EXAM: MR BRAIN WITHOUT IV CONTRAST COMPARISON: CT head on 11/02/2021 FINDINGS: Exam limited by metallic artifact appearing to be centered on patient's back. Exam was ended prior to contrast administration per patient request. No restricted diffusion to suggest acute infection. No abnormal signal in the brain parenchyma. No mass effect, midline shift, or hydrocephalus. The paranasal sinuses are clear. IMPRESSION: No acute intracranial abnormality. Leukocytes Date Value Ref Range Status 11/25/2021 5.2 3.4 - 9.6 x10(9)/L Final Erythrocytes Date Value Ref Range Status 11/25/2021 1.99 (L) 3.92 - 5.13 x10(12)/L Final Hemoglobin Date Value Ref Range Status 11/25/2021 7.5 (L) 11.6 - 15.0 g/dL Final Platelet Count Date Value Ref Range Status 11/25/2021 51 (L) 157 - 371 x10(9)/L Final Comment: Results confirmed by smear, no clumping or interference seen. BUN (Blood Urea Nitrogen), S Date Value Ref Range Status 11/25/2021 8 6 - 21 mg/dL Final Creatinine, S Date Value Ref Range Status 11/25/2021 0.47 (L) 0.59 - 1.04 mg/dL Final Glucose, S Date Value Ref Range Status 11/25/2021 114 70 - 140 mg/dL Final MEDICATIONS AT DISCHARGE Discharge Medications TAKE these medications diclofenac sodium 1 % gel Commonly known as: VOLTAREN Apply 2 g topically 4 (four) times a day. Apply to painful area on skin. ergocalciferol 50,000 Unit capsule Commonly known as: DRISDOL Take 50,000 Units by mouth once a week. folic acid 1 mg tablet Take 1 mg by mouth daily. furosemide 20 mg tablet Commonly known as: LASIX Take 2 tablets (40 mg total) by mouth daily. lactulose 10 gram/15 mL solution Commonly known as: CHRONULAC Take 15 mL (10 g total) by mouth 3 (three) times a day. Titrate to 3 soft bowel movements daily levonorgestreL 20 mcg/24 hours (7 yrs) 52 mg IUD Commonly known as: MIRENA 1 each by intrauterine route continuously. lidocaine 5 % Commonly known as: LIDODERM Place 1 patch on the skin at bedtime for 14 days. Apply to leg. magnesium oxide 400 mg (241.3 mg magnesium) tablet Commonly known as: MAG-OX Take 1 tablet (400 mg total) by mouth 2 (two) times a day before breakfast and dinner. ondansetron ODT 8 mg disintegrating tablet Commonly known as: ZOFRAN-ODT Take 1 tablet by mouth 3 (three) times a day as needed. pantoprazole 40 mg EC tablet Commonly known as: PROTONIX Take 1 tablet (40 mg total) by mouth every morning before breakfast. rifAXIMin 550 mg tablet Commonly known as: XIFAXAN Take 550 mg by mouth 2 (two) times a day. spironolactone 50 mg tablet Commonly known as: ALDACTONE Take 2 tablets (100 mg total) by mouth daily. sulfamethoxazole-trimethoprim 800-160 mg per tablet Commonly known as: BACTRIM DS Take 1 tablet by mouth daily. Take 1 tablet daily for thiamine 100 mg tablet Commonly known as: VITAMIN B1 Take 100 mg by mouth daily. vitamin A 3,000 mcg (10,000 Unit) capsule Take 1 capsule (3,000 mcg total) by mouth 3 (three) times a week for 50 doses. Notes to patient: Take Wednesday zinc sulfate 220 (50 mg zinc) capsule Commonly known as: ZINCATE Take 1 capsule (220 mg total) by mouth daily with breakfast for 28 days. CONDITION AT DISCHARGE stable Discharge instructions were provided to the patient and caregiver(s). Electronically signed by: Gerard Andino M.D., M.S. 11/26/21 10:57 AM CDT documented in this encounter Discharge Instructions Discharge Kain Calderon - 11/12/2021 8:05 AM CDT You were discharged from the [facility] Gastroenterology A Service. Please identify this service name if you call with questions after hospitalization. AttachmentsThe following attachments cannot be sent through Care Everywhere. Diclofenac (On the skin) (British)Lidocaine Patch (On the skin) (British) Sulfamethoxazole/Trimethoprim (By mouth) (British)documented in this encounter Medications at Time of [...] yrs) intrauterine route 52 mg IUD continuously. ondansetron ODT Take 1 tablet by 0 [...] for 50 doses. (HCC), Deficiency Vitamin A lidocaine (LIDODERM) 5 Place 1 patch on [...] Titrate to 3 soft bowel movements daily magnesium oxide Take 1 tablet (400 mg 60 tablet 1 1 12/02/2021 (MAG-OX) 400 mg (241.3 total) by mouth 2 mg magnesium) tablet (two) times a day before breakfast and dinner. rifAXIMin (XIFAXAN) 550 Take 550 mg by mouth 0 12/10/2021 mg tablet 2 (two) times a day. spironolactone Take 2 tablets (100 30 tablet 1 08/03/2021 0 12/10/2021 (ALDACTONE) 50 mg mg total) by mouth tablet daily. sulfamethoxazole-trimet Take 1 tablet by 30 tablet 0 202112/10/2021 hoprim (BACTRIM DS) mouth daily. Take 1 800-160 mg per tablet tablet daily for zinc sulfate (ZINCATE) Take 1 capsule (220 28 capsule 0 10/3112/02/2021 220 (50 mg zinc) mg total) by mouth capsule daily with breakfast for 28 days. documented as of this encounter Progress Notes Shivani Mendez L.I.C.S.W., M.S.W. - 11/26/2021 12:42 PM CDT SUBJECTIVE Social work completed reconnect to patient's home health care. OBJECTIVE Patient is hospitalized on [facility]. ASSESSMENT / PLAN ASSESSMENT Patient was not assessed. PLAN Patient to discharge with home health care. Home Medical Care - Home Health Care Name: [facility] Office Contact: Nurse How do we reach your agency on a weekend/holiday? [phone] ( FYI unavailable to re-start services on weekends) What care they were providing for the patient? weekly medication set up How was the patient's care being paid for? [employer] Any concerns with payment? No Contact: Leinei- intake person NURSING: - Complete documentation in the Discharge Navigator including Nursing Report Info and Facility/NextLevel of Care Info - Call report and arrange for the patient???s first visit. - Send required packet of dismissal information with patient, including After Visit Summary and advance directive. PRIMARY SERVICE: - Please provide a non-[facility] home health order for: [facility] care, medication management in the After Visit Summary. - Communicate with the patient's local primary care provider by telephone for writing of home care orders. This needs to be done to help prevent discharge delays. A copy of the After Visit Summary needs to be sent there as well. SOCIAL WORK: -Reviewed patient's insurance coverage for the services noted above. The patient appear(s) to have an understanding of this. -Will continue to follow and assist if needs arise. Shala Meyer, M.S.W. 11/26/21 Jody Aguilar M.B., B.Chir. - 11/26/2021 10:20 AM CDT I agree with the history, physical examination, and evaluation as noted by Dr. Andino's discharge note from today, November 26 2021. Christelle is markedly improved. In fact she sitting out in bed having a completely normal conversation andasking very appropriate questions. She is completely back to normal. She talked about weaning herself off gabapentin, she talked about oxycodone doses and how she should follow-up in the liver Clinic with . Incredibly, she said that as she has been here for nearly 2 weeks of her medical cannabis, narcoticsand gabapentin with this improve her chance for liver transplant evaluation! I do not have an answer as to why she has improved so dramatically and completely. Her abdominal pain is completely better and CT scan was unrevealing OBJECTIVE PHYSICAL EXAMINATION General : Jaundiced, thin with temporal muscle wasting. Spider angioma noted on the neck. Mental : This morning she is normal sitting out in bed with normal speech flow. Extremity: 1+ pitting edema Abdomen: Soft ASSESSMENT / PLAN #1 Hepatic encephalopathy secondary to decompensated alcoholic liver disease Catia Carias is a 31-year-old lady with known alcoholic liver disease who is being readmitted withhepatic encephalopathy most likely due to noncompliance with lactulose therapy. Some of her issues could be from her other medications such as the neuromodulation she is using and the opioids. 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 We have discontinued gabapentin and also her opioid use. I think it is reasonable for her to follow-up in liver Transplant Clinic. She will follow up with either or [facility]. #2 Episodic altered mental state with being mute but alert, ?delirium Will continue lactulose by oral route. I suspect the working diagnosis is going to be hepatic encephalopathy, on treatment, with hypoactive delirium. This improved just by itself suddenly. She is now completely back to her normal self. #3 Ascites This is still present. Paracentesis demonstrated no evidence of SBP. #4 Nutrition We will continue to encourage p.o. intake now. Sweetie Carson M.SSuma, RDN, LD - 11/25/2021 10:42 AM CDT Clinical Nutrition: Care Plan Follow Up Clinical Nutrition was requested to evaluate patient for oral intake encouragement Patient meets ASPEN/AND criteria for Non-severe (moderate) Malnutrition (at risk for severe) (11/14/2021 2:16 PM) ASSESSMENT Completed visit with patient today as part of face to face care. Current Nutrition (since admission): Consult received for poor PO intake. NG tube removed yesterday.Bites of ice cream documented; per RN, patient also had bites of toast this morning. Asked patient if there is anything from outside of the hospital that we can get for her to eat, and she said no. Patient stated that she mainly likes to eat fruits and vegetables, but that recently prior to admission she also started to eat meat again. She also stated that she is starting to feel hungry. Discussed increased protein needs with cirrhosis / ascites, protein-rich foods, and increasing meal frequency to avoid feeling abdominal fullness / discomfort. Patient wished to talk more about fruit and veg. Provided snack and smoothie menu; encouraged choosing a protein food when she orders fruit / veg. Encouraged ordering smoothies with protein added. Also provided ONS menu. Patient stated that she does not care for regular Ensure / Boost products. Discussed clear liquid and Magic Cup supplements available. Danie albright requested account underwriter order her some apple slices and was amenable to trialing Ensure Clear with this today. Ordered this for patient. Patient was previously meeting her estimated nutrition needs via tube feeding from 11/19 through 11/23. If intake does not increase to at least 50% of her estimated needs by the end of the week, patient may benefit from restarting tube feeds. Skin integrity: Puncture abdomen Gastrointestinal: Diarrhea, distension; last bowel movement 11/24; continues on lactulose, stooling increased to 13 BMs 11/23- but yesterday decreased back to 7 Medications: Reviewed; include folic acid 1 mg, lasix, lactulose (not given), multivitamin mineral, protonis (not given), aldactone (not given), thiamine 100 mg, vitamin A 3000 mcg Wed, zinc sulfate 220 mg Pertinent Labs: Results from last 7 days Lab Units 11/25/21 0655 SODIUM mmol/L 135 POTASSIUM mmol/L 4.0 CHLORIDE mmol/L 103 BICARBONATE S mmol/L 20* CREATININE mg/dL 0.47* CRTS1 EGFR NON BLACK mL/min/BSA >90 CRTS1 EGFR BLACK mL/min/BSA >90 BUN mg/dL 8 ANION GAP 12 GLUCOSE S mg/dL 114 CALCIUM mg/dL 9.1 Lab Results Component Value Date CALCIUM 9.1 11/25/2021 LABPHOS 3.2 11/25/2021 Magnesium 1.7 on 11/25/21 Lab Results Component Value Date ALT 30 11/21/2021 AST 59 (H) 11/21/2021 GGT 52 (H) 09/30/2021 ALKPHOS 200 (H) 11/21/2021 BILITOT 13.5 (H) 11/21/2021 Vitamin B12 621 on 11/21/21 Current nutrition orders: Current Diet Adult Diet Regular; 2,000 mg Na starting at 11/13 1120 Weight since admission: Height: 159 cm Admission Weight: 71.9 kg (11/12/2021) Current Weight: 58.9 kg BMI (Calculated): 23.3 kg/m?? Weight change since admission: -13 kg Estimated Needs: Total Calorie Needs: 6662-2125 calories/day Method to Estimate Energy Needs: [place] (Basal to Basal + 20% (HB +20- 40% for weight gain)) Weight Used for Equation Calculations: 58.9 kg (wt 11/25 s/p paracentesis on 11/24) Total Protein Needs: 59 - 88 grams/day Method to Estimate Protein Needs (g/kg): 1 - 1.5 gm/kg Weight Used to Calculate Protein Needs (Kg): 58.9 kg PLAN Nutrition Intervention: Enteral nutrition, Vitamin and mineral supplements Nutrition parameter to monitor: Enteral, Meals/Supplement Intake, Weight Status, Pertinent Labs, Chewing/Swallowing, Nausea/Vomiting/Diarrhea, Fluid Balance, Mental Status/Confusion Recommendations: No changes at this time; continue current nutrition orders For questions about patient's nutritional care please contact pager [phone] on weekdays or [phone] on weekends/holidays. Jody Aguilar M.B., B.Chir. - 11/25/2021 9:45 AM CDT I agree with the history, physical examination, and evaluation as noted by Dr. Pelaez from today, November 25 2021. Christelle is markedly improved. Her speech is somewhat slow but she is coherent she has developed left upper quadrant pain. Her paracenteses was on the right side yesterday. No longer has the nasoenteric tube. She can take food by mouth as well as lactulose OBJECTIVE PHYSICAL EXAMINATION General : Jaundiced, thin with temporal muscle wasting. Spider angioma noted on the neck. Mental : This morning she is conversant. His speech is slow. She says she recognizes me from before. Extremity: 1+ pitting edema Abdomen: Very tender in the left upper quadrant ASSESSMENT / PLAN #1 Hepatic encephalopathy secondary to decompensated alcoholic liver disease Catia Carias is a 31-year-old lady with known alcoholic liver disease who is being readmitted withhepatic encephalopathy most likely due to noncompliance with lactulose therapy. Some of her issues could be from her other medications such as the neuromodulation she is using and the opioids. 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 We have discontinued gabapentin and also her opioid use #2 Episodic altered mental state with being mute but alert, ?delirium Will continue lactulose by oral route. I suspect the working diagnosis is going to be hepatic encephalopathy, on treatment, with hypoactive delirium. She seems to be improving. #3 Ascites This is still present. Paracentesis demonstrated no evidence of SBP. #4 Nutrition We will continue to encourage p.o. intake now. #5 Left upper quadrant pain Not quite sure what is going on here. She is very tender with some guarding. CT scan will be performed. Jovanna Bergeron M.D. - 11/25/2021 6:14 AM CDT [facility] Gastroenterology A PROGRESS NOTE SUBJECTIVE Ms. Carias experienced acute onset, upper abdominal, sharp pain that is most prominent in the LUQ beginning at 5 AM. An abdominal Xray without evidence of perforation. Despite hydromorphone treatment, pain persisted, so a CT abdomen/pelvis with contrast was obtained. I have reviewed the current medication list. OBJECTIVE VITAL SIGNS Temperature: [36.7 ??C-37.4 ??C] 37.2 ??C Resp Rate: [14-19] 18 Blood Pressure: (91-132)/(44-70) 99/54 SpO2: [93 %-100 %] 96 % Pulse Rate: [68-86] 78 PHYSICAL EXAM General: Jaundice ENT: Hearing grossly intact Lungs: Pulmonary effort is normal. No accessory muscle usage. Heart: Regular rate and rhythm. No murmurs appreciated. Abdomen: voluntary guarding with LUQ abdominal palpation. Lower abdomen is soft. Extremities: 1+ Pitting Edema present. Mental: Disoriented, delirious, unable to assess orientation. DIAGNOSTICS I have personally reviewed the laboratory data and imaging since admission, and in/outs for past 72 hours. ASSESSMENT / PLAN Ms. Carias is hospitalized on [facility] Gastroenterology A for evaluation and management of hepatic encephalopathy in the setting of lactulose noncompliance. She continues to have waxing and waning mental status with intermittent nonverbal state. She underwent extensive work up with assistance of our Neurolog y and Psychiatry consult teams. Work-up was overall unremarkable. Fortunately, she is showing some improvement in mental status recently compared to prior week. At 5 AM, she reported upper abdominal pain, most prominent in the LUQ. Abdominal Xray without evidence of perforation. Given persistent pain despite hydromorphone, a CT abdomen/pelvis was obtained. Plan for today: - f/u CT abdomen/pelvis - For the past few days, she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 improving #2 Cannabis use disorder #3 Chronic opioid use #4 Alcohol use disorder, in reported remission #5 Bulimia nervosa by history, quiescent #6 Medical comorbidities Discussion: We have been following Ms. Carias' course electronically and given at least some potential soft signs of catatonia, I came to assess whether a repeat lorazepam challenge was warranted (although we typically would be slow to utilize lorazepam in a patient with good reasons for hepatic encephalopathy and diffuse slowing on EEG) - as noted above, there do not now appear to be significant stigmata of catatonia, so I do not see a reason to consider a re- challenge with lorazepam. Recommendations: A. Agree with ongoing medical management. B. At present, I don't see a reason to introduce a new psychotropic. C. If questions arise, please contact the psychiatry consult service pager at [phone]. Hima Messer M.D. 11/19/2021 Nabila Maynard Pharm.D., R.Ph. - 11/19/2021 11:47 AM CDT Pharmacist Progress Note Reason for admission: AMS, likely HE due to lactulose non-compliance. She was just discharged 11/10 after being hospitalized for the same reason. PMH: alcoholic cirrhosis undergoing transplant evaluation, nicotine dependence, cannabis use, chronic pain syndrome, anxiety, mood disorder, GERD, chronic pancreatitis, anemia OBJECTIVE Home medications: Provider completed last admission. Held: Cipro, vitamin D, gabapentin, hydroxyzine, magnesium, oxycodone, ropinirole, medical cannabis Prophylaxis: SQH (plts 46) Estimated Creatinine Clearance: 225.7 mL/min (A) (by C-G formula based on SCr of 0.41 mg/dL (L)). Last BM: 11/19 ASSESSMENT / PLAN Decompensated cirrhosis: Confusion 2/2 hepatic encephalopathy. -- HE: Lactulose 10 gm TID (decreased from 20 gm on 11/18 due to hypernatremia). Continues rifaximin 550 mg BID. Gabapentin and oxycodone dc'd for AMS. -- SBP: Paracentesis 11/18 negative. Prophylactic Cipro on hold due to concern for neurotoxicity. -- Ascites: Furosemide and spironolactone. -- Nutrition: Folic acid, vitamin A, zinc supplementation. 2. Nutrition: On tube feeds. All meds via [employer]. Paty Maynard, PharmD, [facility] [phone] Jody Aguilar M.B., B.Chir. - 11/19/2021 9:44 AM CDT I met up with the patient and went through the history, physical examination, and evaluation with today, November 19 2021. Today she is sleeping. Talking to the nursing staff she has had a very quiet night. She has had multiple bowel movements. With had decreased dose of lactulose as she was becoming hypernatremic OBJECTIVE PHYSICAL EXAMINATION General : Jaundiced, thin with temporal muscle wasting. Spider angioma noted on the neck. Nasoenteric tube noted Mental : Somnolent. ASSESSMENT / PLAN #1 Hepatic encephalopathy secondary to decompensated alcoholic liver disease Catia Carias is a 31-year-old lady with known alcoholic liver disease who is being readmitted withhepatic encephalopathy most likely due to noncompliance with lactulose therapy. I suspect some of her issues could be from her other medications such as the neuromodulation she is using and the opioids. 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 We have discontinued gabapentin and also her opioid use #2 Episodic altered mental status with being mute but alert Will continue lactulose by nasoenteric route. Will monitor. Her EEG was unrevealing apparently. #3 Ascites This is still present. Paracentesis yesterday demonstrated no evidence of SBP #4 Nutrition She has been encouraged to eat but is just not eating. We are giving tube feeds Ben Guerrier M.D. - 11/18/2021 5:19 PM CDT [facility] Palliative Care Consultation Service Progress Note SUBJECTIVE Catia Carias is a 31 y.o. female with advanced alcoholic cirrhosis. She remains encephalopathic. On review of her record, she was previously evaluated by the transplant service who consistently reference the requirement that she refrain from opioid and cannabis use in order to be listed for transplant. Her nausea has been less problematic today. Given the persistence of her CODE STATUS: Full Code OBJECTIVE Admission Weight: 71.9 kg Current Weight: 71.9 kg PHYSICAL EXAM Temperature: [36.3 ??C-36.7 ??C] 36.7 ??C Resp Rate: [16-20] 16 Blood Pressure: (84-134)/(44-79) 111/67 SpO2: [91 %-99 %] 96 % Pulse Rate: [77-95] 89 I/O 11/17 0000 11/17 2359 11/18 0000 11/18 2359 Enteric (NG/OG) Tube 275 Feedings 330 Crystalloid Bolus 3 Total Intake(mL/kg) 605 (8.4) 3 (0) Urine (mL/kg/hr) 555 (0.4) Other 3012 Stool 400 Total Output 3967 Net +605 -3964 Unmeasured Urine Occurrence 1 x Unmeasured Stool Occurrence 5 x 1 x Pain Score: 0 - No pain Constitutional General: She is not in acute distress. Appearance: She is ill-appearing. HENT Head: Normocephalic. Eyes General: Scleral icterus present. Conjunctiva/sclera: Conjunctivae normal. Cardiovascular Pulses: Normal pulses. Pulmonary Effort: Pulmonary effort is normal. Abdominal General: There is distension. Palpations: Abdomen is soft. Skin General: Skin is warm and dry. Capillary Refill: Capillary refill takes less than 2 seconds. Coloration: Skin is jaundiced. Neurological Mental Status: She is alert. Comments: Unresponsive ASSESSMENT / PLAN #1 Change Mental Status #2 Encephalopathy RECOMMENDATIONS Christelle is unable to engage in a goals of care conversation or to discuss options for reducing her use of opioids and cannabinoids to manage her lower extremity pain. For this reason, our service will signoff for now. Please reconsult us when Christelle is more awake and conversant. Goals of care, per her significant other, are currently to pursue disease-directed therapies. Thank you for having the Palliative Medicine team A ([phone]) participate in the care of this patient. Please do not hesitate to contact our team at anytime with any questions or concerns. Total time spent was 35 minutes, with 20 minutes spent on counseling and coordination of care, including Diagnostic results, impressions, and/or recommended diagnostic studies, Risks and benefits of management(treatment) options, and Patient education and family education (if involved in care provision). Ben Guerrier M.D. Tiffanie Boyd - 11/18/2021 4:41 PM CDT Palliative Medicine Music Therapy Follow-up Note Music Therapy Progress Type of Session: Patient not seen Reason Patient Not Seen: Procedure Type of Contact: Follow-up Music therapy checked in with Catia's bedside RN; although she was away at procedure. RN noted that Catia seemed to benefit from yesterdays session. Catia did respond to session by attending to the musical stimuli, smirking and mouthing the words along to a Yareli song during our previous session. She would benefit from follow-up on Wednesday and ongoing music therapy presence. Music therapy will continue to be available to support Catia as a part of the Palliative Medicine team, and can be reached via pager [phone]. Session Information Music Therapy Time Spent (Min): 5 Music Therapy Patient Type: Adult Sweetie Carson M.SSuma, RDN, LD - 11/18/2021 1:57 PM CDT Clinical Nutrition: Care Plan Follow Up Clinical Nutrition continues to follow patient for tube feeding recommendations/management. Patient meets ASPEN/AND criteria for Non-severe (moderate) Malnutrition (at risk for severe) (11/14/2021 2:16 PM) ASSESSMENT Current Nutrition (since admission): Tube feeds not completed yesterday 11/18 per chart review; intolerance documented. Messageslick RN, who reported that feeds were held yesterday evening as patient developed nausea and abdominal pain. Of note, patient is to receive paracentesis today per GI note. Will trial cyclic tube feeds. Gastrointestinal: Diarrhea (patient on lactulose); distension (patient to get paracentesis today) Medications: Reviewed; include folic acid 1 mg, furosemide, lactulose, prevacid, spironolactone, thiamine 100 mg, vitamin A 23526 units Wed, zinc sulfate 220 mg Pertinent Labs: Results from last 7 days Lab Units 11/18/21 0856 SODIUM mmol/L 146* POTASSIUM mmol/L 3.8 CHLORIDE mmol/L 112* BICARBONATE S mmol/L 19* CREATININE mg/dL 0.49* CRTS1 EGFR NON BLACK mL/min/BSA >90 CRTS1 EGFR BLACK mL/min/BSA >90 BUN mg/dL 16 ANION GAP 15 GLUCOSE S mg/dL 113 CALCIUM mg/dL 9.7 < > = values in this interval not displayed. Lab Results Component Value Date CALCIUM 9.7 11/18/2021 LABPHOS 2.7 11/18/2021 AST 65 (H) Alkaline phosphatase 191 (H) Bilirubin total 17.7 (H) Current nutrition orders: Current Diet Tube feeding with oral diet -Nutren 1.5; Feeding route: Nasogastric; Feed options: Intermittent; Day 1 ml/feedin mL TID; Day 2 ml/feedin mL TID; Day 3 ml/feedin mL TID; Intermittent goal: 250-500-250 mL; Daily goal volume (mL): 1... starting at 11/17 1600 Adult Diet Regular; 2,000 mg Na starting at 11/13 1120 Weight since admission: Height: 159 cm Admission Weight: 71.9 kg (11/12/2021) Current Weight: 71.9 kg BMI (Calculated): 28.4 kg/m?? Weight change since admission: 0 kg Estimated Needs: Total Calorie Needs: 0432-1635 calories/day Method to Estimate Energy Needs: [place] (Basal to Basal + 10%) Weight Used for Equation Calculations: 71.9 kg (admit wt) Total Protein Needs: 62 - 77 grams/day Method to Estimate Protein Needs (g/kg): 1.2 - 1.5 gm/kg Weight Used to Calculate Protein Needs (Kg): 51.5 kg (ideal body wt) PLAN Nutrition Intervention: Enteral nutrition, Vitamin and mineral supplements Nutrition parameter to monitor: Enteral, Meals/Supplement Intake, Weight Status, Pertinent Labs, Chewing/Swallowing, Nausea/Vomiting/Diarrhea, Fluid Balance, Mental Status/Confusion Recommendations: Adjust tube feed regimen from bolus to 12-hr cycle (8 AM to 8 PM) Nutren 1.5 Goal rate: 85 mL/hr Water flushes: minimum 30 mL every 6 hours for tube patency Enteral nutrition as recommended will provide 1000 mL formula, 1500 kcal, 68 g protein, and 100% of Dietary Reference Intake for vitamins / minerals daily Continue current vitamin / mineral supplementation Continue to monitor refeeding labs (K, Phos, Mg) as nutrition increases For questions about patient's nutritional care please contact pager [phone] on weekdays or [phone] on weekends/holidays. Jody Aguilar M.B., B.Chir. - 11/18/2021 11:30 AM CDT I agree with the history, physical examination, and evaluation as documented by from today, November 18 2021. Today she is more agitated and writhing around. She does not seem in pain. Apparently this morning she was having a conversation with herself the was that he quite coherent according to the nursing staff. Apparently was poor that her [place] tube yesterday and this morning. Now she is lying in bed and just squirming but not grimace in and just moving around. She is staringat us. The EGD was unrevealing OBJECTIVE PHYSICAL EXAMINATION General : Jaundiced, thin with temporal muscle wasting. Spider angioma noted on the neck. Mental : Moving around in bed and staring at us. Somnolent. ASSESSMENT / PLAN #1 Hepatic encephalopathy secondary to decompensated alcoholic liver disease Catia Carias is a 31-year-old lady with known alcoholic liver disease who is being readmitted withhepatic encephalopathy most likely due to noncompliance with lactulose therapy. She was on the service just a few days ago, and an infectious workup was completely normal. I suspect some of her issues could be from her other medications such as the neuromodulation she is using and the opioids. 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 We have discontinued gabapentin and also her opioid use #2 Ascites This is still present. #3 Altered mental status with history of a hepatic encephalopathy and also alert but nonresponsive Will continue lactulose by nasoenteric route. Will monitor. Her EGD was unrevealing apparently. We will do a paracentesis and consider lumbar puncture. I am still unclear as to what is the cause of altered mental state. Could this be delirium/agitation? #4 Marijuana use #5 Nutrition She has been encouraged to eat but is just not eating. We are giving tube feeds Gerard Andino M.D., M.S. - 11/18/2021 6:27 AM CDT [facility] Gastroenterology A PROGRESS NOTE SUBJECTIVE Ms. Carias had agitation overnight and was pulling at her rectal tube and NG tube. She required intermittent 1 on 1 supervision. She was reportedly mostly non verbal during this period. She had difficulty tolerating tube feeds due to nausea last night. I have reviewed the current medication list. OBJECTIVE VITAL SIGNS Temperature: [36.2 ??C-36.7 ??C] 36.7 ??C Resp Rate: [16-20] 16 Blood Pressure: (90-134)/(46-86) 94/47 SpO2: [91 %-97 %] 91 % Pulse Rate: [77-104] 83 PHYSICAL EXAM Constitutional Comments: Appears agitated, pulling at her lines, appears in discomfort/pain but non verbal Cardiovascular Rate and Rhythm: Normal rate and regular rhythm. Heart sounds: Normal heart sounds. Pulmonary Effort: Pulmonary effort is normal. No accessory muscle usage. Abdominal Comments: Abdomen more distended with fluid wave and mildly tense, no apparent tenderness though difficult to assess due to mental status Musculoskeletal Right lower le+ Pitting Edema present. Left lower le+ Pitting Edema present. Skin Coloration: Skin is jaundiced. Neurological Comments: Disoriented, delirious, unable to assess orientation DIAGNOSTICS I have personally reviewed the laboratory data and imaging since admission, and in/outs for past 72 hours. ASSESSMENT / PLAN Ms. Carias is hospitalized on [facility] Gastroenterology A for evaluation and management of hepatic encephalopathy in the setting of lactulose noncompliance. She continues to have waxing and waning mental status with intermittent nonverbal state, but now is more agitated and appears in significant discomfort. Neurology workup has thus far been unrevealing, and psychiatry is not highly suspicious of a primary psych cause. She continues on lactulose and rifaximin with adequate stool output. Her abdomen appears more distended today so we will proceed with diagnostic and therapeutic paracentesis to rule out SBP in case this is exacerbating her encephalopathy, Plan for today - paracentesis to rule out SBP - mixed crystalloid/colloid IV fluids for UOP < 0.5cc/kg overnight - decrease lactulose today if sodium continuing to rise - if paracentesis unrevealing, will reconnect with neuro to consider LP to rule out encephalitis # decompensated alcoholic cirrhosis # encephalopathy, undifferentiated - MELD-Na score on admission 32 - 2g Na restriction diet - lactulose 20-30g tid, titrate to 2-3 soft BMs per day - decrease lactulose today if sodium continuing to rise - nonpharmacologic delirium measures - continue spironolactone 100mg po qd and Lasix 40mg po qd - keep NG tube in place while she will not take po lactulose - holding all neuroactive medications including gabapentin and opioids - holding her prophylactic ciprofloxacin for encephalopathy - paracentesis to rule out SBP - mixed crystalloid/colloid IV fluids for UOP < 0.5cc/kg overnight - decrease lactulose today if sodium continuing to rise - if paracentesis unrevealing, will reconnect with neuro to consider LP to rule out encephalitis Non-severe (moderate) Malnutrition (at risk for severe) The patient meets the ASPEN Criteria of malnutrition based on: Average estimated Intake: Other (Comment) (poor intake x3 days) Weight Loss: Unable to Assess (wt trended up likely d/t fluid status and may be masking actual wt loss) Body Fat: Mild Loss Muscle Mass: Moderate Loss This is in the context of Chronic Illness. Malnutrition Present Upon Admission: Yes Agree with Registered Dietitian's assessment and treatment plan: Interventions: Enteral nutrition, Vitamin and mineral supplements Baseline Mobility: BMAT Level 4 (Able to stand and walk) Diet: tube feeds Tubes/lines: PIV VTE prophylaxis: heparin Code status: Full Code, not discussed on admission due to AMS Surrogate Decision Maker: Parent, Mother Disposition: Home This patient was seen and discussed with Dr. Aguilar who was present for judd evaluation and management. Please see the supervisory note for further details. Please contact the primary service pager - [phone] with any questions. Electronically signed by: Gerard Andino M.D. Internal Medicine PGY-2 11/18/21 10:21 AM CDT Ben Guerrier M.D. - 11/17/2021 4:41 PM CDT SUBJECTIVE Ms. Carias is 31 y.o. female followed by Physical Medicine and Rehabilitation for confusion, and nausea, as well as goals of care and transplant candidacy in the setting of alcoholic cirrhosis. Her mental status has remained compromised throughout the day per her RN. However, her boyfriend, who was present at bedside during my visit reports that she has responded intermittently to him with head nods. Christelle has been intermittently nauseous. Her tube feeds were previously held due to nausea and restated at a lower rate. Unfortunately she continues with episodes of retching and spitting despite receipt of Zofran and Compazine. Per Lobito, her boyfriend, she has not participated in a drug and alcohol recovery program. Lobito shared that Christelle has a strong wish to live and is interested in a liver transplant. He reports that Christelle has received conflicting guidance re. her liver transplant eligibility if she continues to use opioidsand cannabinoids to address her chronic leg pain. Lobito does not believe that Christelle has received a diagnosis or seen a specialist for her leg pain. Since the last visit, Ms. Carias has no new complaints. I have reviewed the current medication list. OBJECTIVE Temperature: [36.2 ??C-36.6 ??C] 36.3 ??C Resp Rate: [14-18] 18 Blood Pressure: (90-160)/(45-86) 134/86 SpO2: [94 %-97 %] 97 % Physical Exam: Constitutional General: She is not in acute distress. Appearance: She is ill-appearing. Comments: Somnolent. HENT Head: Normocephalic. Eyes General: Scleral icterus present. Conjunctiva/sclera: Conjunctivae normal. Cardiovascular Pulses: Normal pulses. Pulmonary Effort: Pulmonary effort is normal. Abdominal General: There is distension. Palpations: Abdomen is soft. Musculoskeletal General: No deformity. Skin General: Skin is warm and dry. Capillary Refill: Capillary refill takes less than 2 seconds. Coloration: Skin is jaundiced. Neurological Comments: Awake but unable to respond appropriately to verbal commands or questions. Diagnostics I reviewed the imaging studies and agree with the interpretation as recorded. I reviewed the pertinent laboratory and diagnostic data. ASSESSMENT / PLAN #1 Change Mental Status #2 Encephalopathy The Palliative Care team will continue to follow the patient in an effort to better understand the her goals and barriers to becoming a transplant candidate. Currently centrally acting medications are being tapered. Lobito expects that her mother will visit tomorrow. Thank you for allowing us to contribute to the care of this patient. Ben Guerrier M.D. Ciara Salcedo, JANN, LD - 11/17/2021 2:23 PM CDT Clinical Nutrition: Care Plan Follow Up Clinical Nutrition continues to follow patient for tube feeding recommendations/management Patient meets ASPEN/AND criteria for Non-severe (moderate) Malnutrition (at risk for severe) (11/14/2021 2:16 PM) ASSESSMENT Current Nutrition (since admission): Tube feeds initiated 11/14. She received day 1 and 2 feed advancement until they were held 11/16. 1x emesis noted 11/16 and multiple loose stools/day per I/O (on lactulose so loose stools expected). Tube feeds resumed this afternoon and was given as 200 mL bolus per service order. Medications: folic acid, furosemide, lactulose, rifaxamin, thiamine, 220 mg Zinc sulfate daily, 10,050 IU Vitamin A daily Pertinent Labs: Vitamin A 9.5 (L-09/30/21) Current nutrition orders: Current Diet Tube feeding with oral diet -Nutren 1.5; Feeding route: Nasogastric; Feed options: Intermittent; Day 1 ml/feedin mL TID; Day 2 ml/feedin mL TID; Day 3 ml/feedin mL TID; Intermittent goal: 250-500-250 mL; Daily goal volume (mL): 1... starting at 11/17 1600 Adult Diet Regular; 2,000 mg Na starting at 11/13 1120 Weight since admission: Height: 159 cm Admission Weight: 71.9 kg (11/12/2021) Current Weight: 71.9 kg BMI (Calculated): 28.4 kg/m?? Weight change since admission: 0 kg Estimated Needs: Total Calorie Needs: 1252-3140 calories/day Method to Estimate Energy Needs: [place] (Basal to Basal + 10%) Weight Used for Equation Calculations: 71.9 kg (admit wt) Total Protein Needs: 62 - 77 grams/day Method to Estimate Protein Needs (g/kg): 1.2 - 1.5 gm/kg Weight Used to Calculate Protein Needs (Kg): 51.5 kg (ideal body wt) PLAN Nutrition Intervention: Enteral nutrition, Vitamin and mineral supplements Nutrition parameter to monitor: Enteral, Meals/Supplement Intake, Weight Status, Pertinent Labs, Chewing/Swallowing, Nausea/Vomiting/Diarrhea, Fluid Balance, Mental Status/Confusion Recommendations: No changes at this time; continue tube feeding advancement as tolerated For questions about patient's nutritional care please contact pager [phone] on weekdays or [phone] on weekends/holidays. Tiffanie Boyd - 11/17/2021 1:00 PM CDT Palliative Medicine Music Therapy Assessment Note Music Therapy Referral Information Referred By: Other (comment) (Palliative) Date of Referral: 11/13/21 Reason for Referral: Psychosocial support Type of Contact: Assessment Support Provided to Family Family Support: Consistent Family Receiving Support: Other(s) Other(s) Name(s): Lobito Other(s) Relationship: Boyfriend Caregiver(s) Involvement During Session: Active observer Music Behaviors Patient's Response to Music: Passive Does patient like to sing?: Yes Preferred Genre: Pop Favorite Songs, Artists, or Radio Stations: Yareli, Pop, soft rock Music Therapy Treatment Plan Interventions and Outcomes: Psychosocial interventions and outcomes Psychosocial Interventions: Use of music meaningful to patient Psychosocial Outcomes: Increase in activity and engagement, Provided normalized or familiar sensory stimulation, Increase in relaxation response, Increase opportunities for emotional expressivity (verbal and or non-verbal) Plan for Music Therapy Services: Continue on an individual basis Upon arrival, Ms. Jv Reza) was lying in bed, awake; Lobito (boyfriend) was present. He welcomed music therapy, sharing Christelle's musical preferences. He shared their love for Yareli, and classic Yareli songs were played to promote relaxation and coping support. Christelle gave a smile in response to Toy Storysong, and mouthed the words to You'll Be in My Heart. Lobito expressed appreciation for music therapy support. Music therapy will continue to be available to support Christelle as a part of the Palliative Medicine team, and can be reached via pager [phone]. Session Information Music Therapy Time Spent (Min): 40 Music Therapy Patient Type: Adult Jody Aguilar M.B., B.Chir. - 11/17/2021 10:04 AM CDT I met up with the patient and went through the history, physical examination, and evaluation with her today, November 17 2021. She did receive a lactulose enema yesterday. This morning she sitting out in bed and just staring atus. She is mute but will track us. She is undergoing EGD evaluation OBJECTIVE PHYSICAL EXAMINATION General : Jaundiced, thin with temporal muscle wasting. Spider angioma noted on the neck. Mental : Sitting up in bed and staring at us. Somnolent. ASSESSMENT / PLAN #1 Hepatic encephalopathy secondary to decompensated alcoholic liver disease Catia Carias is a 31-year-old lady with known alcoholic liver disease who is being readmitted withhepatic encephalopathy most likely due to noncompliance with lactulose therapy. She was on the service just a few days ago, and an infectious workup was completely normal. I suspect some of her issues could be from her other medications such as the neuromodulation she is using and the opioids. We willtry and minimize these if possible in the fpc. We have discontinued gabapentin and also her opioid use #2 Ascites This is still present. #3 Altered mental status with history of a hepatic encephalopathy and also alert but nonresponsive Will continue lactulose by nasoenteric route. Will monitor. Undergoing EEG evaluation at present #4 Marijuana use #5 Nutrition She has been encouraged to eat but is just not eating. We are giving tube feeds Gisel Edwards M.D. - 11/17/2021 8:00 AM CDT Neurology Consult Note Supervising Parlor Maid: Dr. Renee Gale Service pager: [phone] SUBJECTIVE Referral [facility] Consult question: Alternative neurological explanation for encephalopathy Interval history: continues to be encephalopathic, nonverbal, not following commands, the focal deficits noted previously on exam that appeared focal of been changing, initially there was a noted left-sided concern of neglect or hemianopsia, yesterday this seems to be more notable on the right and currently it fluctuates when the patient will blink to threat and there is not seem to be any clear neglect/visual field cut. History of Present Illness Patient is a 31-year-old female with history of alcoholic cirrhosis, chronic pancreatitis, threat ofthrombocytopenia currently being evaluated in outpatient setting for liver transplant evaluation. She has been previously hospitalized for hepatic encephalopathy due to lactulose noncompliance and was recently discharged for this on 11/11/2021. Following discharge the patient did not take any of the prescribed lactose and became progressively more confused. She was transferred to [facility] on 11/12. Initially on presentation the patient was seen to have disorganized speech and was unable to follow commands. No focal deficits were noted at this time. Ammonia level is 38. Urine drug screen showed presumptive positive indicators of THC and benzodiazepines. Neurology service consulted for worsening encephalopathy with concerns of the patient becoming progressively mute with hallucinations. Past Medical History: Diagnosis Date Ascites Cirrhosis Alcoholic (HCC) Cirrhosis Of Liver NOS Deficiency Coagulation Acquired (HCC) 07/07/2021 Jaundice Past Surgical History: Procedure Laterality Date ELBOW SURGERY Left 2018 per patient TENDON REPAIR Left left foot per patient . Social History Socioeconomic History Marital status: Single Highest education level: Associate degree: occupational, technical, or vocational program Tobacco Use Smoking status: Former Packs/day: 1.00 Years: 12.00 Pack years: 12.00 Types: Cigarettes Start date: 05/03/2009 Quit date: 10/20/2021 Years since quittin.0 Smokeless tobacco: Never Tobacco comments: 2-3 cpd since July 27, 2021 Vaping Use Vaping Use: never used Substance and Sexual Activity Alcohol use: Not Currently Drug use: Yes Types: Marijuana Comment: daily prn- medical card, plus non medical, last Social Determinants of Health Financial Resource Strain: High Risk Difficulty of Paying Living Expenses: Very hard Food Insecurity: No Food Insecurity Worried About Running Out of Food in the Last Year: Never true Ran Out of Food in the Last Year: Never true Transportation Needs: Unmet Transportation Needs Lack of Transportation (Medical): Yes Lack of Transportation (Non-Medical): Yes Physical Activity: Unknown Days of Exercise per Week: 0 days Minutes of Exercise per Session: Patient refused Stress: No Stress Concern Present Feeling of Stress : Only a little Social Connections: Moderately Isolated Frequency of Communication with Friends and Family: More than three times a week Frequency of Social Gatherings with Friends and Family: Twice a week Attends Jew Services: Never Active Member of Clubs or Organizations: No Attends Club or Organization Meetings: Patient refused Marital Status: Living with partner Intimate Partner Violence: Not At Risk Fear of Current or Ex-Partner: No Emotionally Abused: No Physically Abused: No Sexually Abused: No Housing Stability: Low Risk Unable to Pay for Housing in the Last Year: No Number of Places Lived in the Last Year: 1 Unstable Housing in the Last Year: No No family history on file. Allergies Allergen Reactions Azithromycin GI intolerance Code Status: Full ROS 02/13 systems were reviewed and negative or non-contributory outside of items mentioned in the HPI. Medications Current Facility-Administered Medications: CRUSHED spironolactone tablet 100 mg (ALDACTONE), 100 mg, gastric tube, Daily, Harish Schulz M.D., 100 mg at 11/16/21 0823 folic acid tablet 1 mg, 1 mg, gastric tube, Daily, Harish Schulz M.D., 1 mg at 11/16/21 0822 furosemide tablet 40 mg (LASIX), 40 mg, gastric tube, Daily, Harish Schulz M.D., 40 mg at 11/16/21 0823 heparin (porcine) injection 5,000 Units, 5,000 Units, subcutaneous, Q8H [facility], Dina Campa M.D., 5,000 Units at 11/16/21 2223 lactulose in sterile water 200 gram/1000 mL enema 1,000 mL, 1,000 mL, rectal, Daily PRN, Dina Campa M.D. lactulose solution 20 g (CHRONULAC), 20 g, gastric tube, TID, Gerard Andino M.D., M.S., 20 g at 11/16/21 2221 lansoprazole suspension 30 mg (PREVACID), 30 mg, gastric tube, Daily before breakfast, Harish Schulz M.D., 30 mg at 11/16/21 0638 ondansetron (PF) injection 4 mg (ZOFRAN), 4 mg, intravenous, Q6H PRN, Dina Campa M.D., 4 mg at 11/16/21 1007 rifAXIMin sugar-free suspension 550 mg (XIFAXAN), 550 mg, gastric tube, BID, Randal Covarrubias, Pharm.DSuma, R.Ph., 550 mg at 11/16/21 2223 thiamine tablet 100 mg (VITAMIN B1), 100 mg, gastric tube, Daily, Harish Schulz M.D., 100 mg at11/16/21 0823 vitamin A 1,507 mcg (5,025 Unit)/0.05 mL solution 10,050 Units, 10,050 Units, gastric tube, Once per day on Wed, Randal Covarrubias, Pharm.D., R.Ph., 10,050 Units at 11/14/21 0909 zinc sulfate capsule 220 mg (ZINCATE), 220 mg, gastric tube, Daily with breakfast, Harish Schulz M.D., 220 mg at 11/16/21 0823 OBJECTIVE Vitals Temperature: [36.3 ??C-36.5 ??C] 36.3 ??C Resp Rate: [14-18] 16 Blood Pressure: (93-160)/(39-68) 105/59 SpO2: [94 %-98 %] 96 % Pulse Rate: [68-86] 73 Exam General: Awake sitting in chair, tracks examiner, mute, no acute distress HEENT: Normocephalic, atraumatic Cardiovascular: Warm, well perfused Respiratory: On room air, no accessory muscle use, no increased work of breathing, equal chest rise Abdomen: Distended Skin: Jaundice, dry, intact, multiple spider angioma present Neurologic Examination: Neuro: Patient is lying in bed awake. Tracks examiner and is attentive with occasional redirection. Patientdoes not nod her head yes or no to any questions today, and intentionally appears several the offsetdirection from other examiners standing when speaking to her. Blink to threat is absent in all visual zarco. The patient is unable to follow any commands. Muscle tone is normal in all extremities. Thepatient localizes to pain in all extremities and resists motor testing. Strength feels full in all extremities although difficult this test specific muscle groups due to patient cooperation. IMAGING MRI:No restricted diffusion to suggest acute infection. No acute intracranial abnormality. EEG Clinical Interpretation: This is computer-assisted prolonged video EEG demonstrated: Mild- moderate slowing of the background which is a non specific indicator of diffuse cerebral dysfunction Intermittent rhythmic delta activity present diffusely (GRDA) which is a non specific indicator of moderate encephalopathy No seizures or clinical events during this recording period. ASSESSMENT / PLAN Patient is a 31-year-old female with hepatic encephalopathy with neurology consulted for possible focal neurologic deficit or other acute neurologic process that could give alternative explanation for encephalopathy. Exam is reassuring that there is no obvious focality, migrating neurologic phenomenon most likely represent encephalopathic process. This is congruent with EEG findings which demonstrated mild to moderate slowing of the background as well as intermittent rhythmic delta activity that is present diffusely which is consistent as well with encephalopathy. The patient has not had any demonst ration of seizures. At this time the patient's current clinical picture is most consistent with a profound encephalopathy with believe psychiatric overlay due to hepatic failure. We will continue to follow peripherally, please re-consult us if new symptoms or concerns arise. #1 Hepatic encephalopathy #2 Decompensated alcoholic liver disease #3 Possible left visual field cut, yahir-neglect, or aphasia - MRI brain: No acute intracranial process identified - EEG: Mild to moderate slowing of the background, intermittent rhythmic delta activity present diffusely - Please page us with any new questions or concerns that may arise Please do not hesitate to page the Neurology Consult pager at [phone] with any questions or concerns and we are happy to help. Gisel Edwards M.D. 11/17/21 Jody Aguilar M.B., B.Chir. - 11/16/2021 10:15 AM CDT I met up with the patient and went through the history, physical examination, and evaluation with her today, November 16 2021. She ate the input Psychiatry as well as Neurology. At present a working diagnosis has not been established. This morning she was diffuse in the thought process and had some left-sided neglect. She had 2 bowel movements yesterday and 1 large bowel movement today. OBJECTIVE PHYSICAL EXAMINATION General : Jaundiced, thin with temporal muscle wasting. Spider angioma noted on the neck. Mental : In bed. Somnolent. ASSESSMENT / PLAN #1 Hepatic encephalopathy secondary to decompensated alcoholic liver disease Catia Carias is a 31-year-old lady with known alcoholic liver disease who is being readmitted withhepatic encephalopathy most likely due to noncompliance with lactulose therapy. She was on the service just a few days ago, and an infectious workup was completely normal. I suspect some of her issues could be from her other medications such as the neuromodulation she is using and the opioids. We willtry and minimize these if possible in the fpc. We have discontinued gabapentin and also her opioid use #2 Ascites This is still present. #3 Somnolence Will start her on lactulose enemas. I still think there is another component of her cephalopathy that I am not quite sure what is due to. We have stopped the Cipro for the last 3 days. #4 Marijuana use David Beth M.D. - 11/16/2021 10:06 AM CDT SUBJECTIVE Christelle is less interactive with us today, though her room nurse who has had her for few days says they are definitely fluctuations throughout the day. Yesterday, when her aunt visited (a nurse elsewhere in this hospital) Christelle suddenly blurted out ???Kandis, which is her correct name. OBJECTIVE PHYSICAL EXAMINATION General: Thin, jaundiced woman who looks her stated age of 31 years. Nasoenteric tube in place. Dressed in hospital gown. Accompanied by room nurse and residents of the Neurology consult Service. Examined in [place] [id number] room 251. Neuro: While her eyes were open, she remained curled up on her right side in the hospital bed and would not sit up, follow in the commands, or copy mimed actions. He did blink to threat from both the right and the left. ASSESSMENT / PLAN DATA MRI yesterday were was fair quality. Pictures were good enough to rule out stroke or other medium and large-size lesions in the brain. There were none. There was some metallic artifact from the gauge stuck in 1 ear. She did not tolerate the test long enough for post gadolinium sequences. WHAT IS THIS and WHAT TO DO? Ms. Christelle Carias is a 31-year-old woman with hepatic encephalopathy and possibly a superimposed separate neurologic condition. Yesterday without there could be signs of focal neurologic deficit on exam, but MRI showed no such a structural lesion. Today she remains mute but will blink to threat in both right and left visual zarco. With the description of more dramatic fluctuations our by our throughout the last couple of days, we are obliged to rule out nonconvulsive seizures. We are recommending long-term video EEG monitoring, at least 24 hours, and will place the necessary orders and communicate with the EEG team so this can happen today. We will not initiate antiepileptic medication unless we see s eizures or other epileptiform discharges on EEG. We will continue to follow. Please page the Neurology Consult Service ([phone]) with any questions. Total time 25 min. DIAGNOSES #1 Hepatic encephalopathy #2 Decompensated alcoholic liver disease #3 Rule out nonconvulsive seizures Gisel Thomas M.D. - 11/15/2021 2:47 PM CDT Neurology Consult Note Supervising Parlor Maid: Dr. Renee Gale Service pager: [phone] SUBJECTIVE Referral [facility] Consult question: Alternative neurological explanation for encephalopathy History of Present Illness Patient is a 31-year-old female with history of alcoholic cirrhosis, chronic pancreatitis, threat ofthrombocytopenia currently being evaluated in outpatient setting for liver transplant evaluation. She has been previously hospitalized for hepatic encephalopathy due to lactulose noncompliance and was recently discharged for this on 11/11/2021. Following discharge the patient did not take any of the prescribed lactose and became progressively more confused. She was transferred to [facility] on 11/12. Initially on presentation the patient was seen to have disorganized speech and was unable to follow commands. No focal deficits were noted at this time. Ammonia level is 38. Urine drug screen showed presumptive positive indicators of THC and benzodiazepines. Neurology service consulted for worsening encephalopathy with concerns of the patient becoming progressively mute with hallucinations. Past Medical History: Diagnosis Date Ascites Cirrhosis Alcoholic (HCC) Cirrhosis Of Liver NOS Deficiency Coagulation Acquired (HCC) 07/07/2021 Jaundice Past Surgical History: Procedure Laterality Date ELBOW SURGERY Left 2018 per patient TENDON REPAIR Left left foot per patient . Social History Socioeconomic History Marital status: Single Highest education level: Associate degree: occupational, technical, or vocational program Tobacco Use Smoking status: Former Packs/day: 1.00 Years: 12.00 Pack years: 12.00 Types: Cigarettes Start date: 05/03/2009 Quit date: 10/20/2021 Years since quittin.0 Smokeless tobacco: Never Tobacco comments: 2-3 cpd since July 27, 2021 Vaping Use Vaping Use: never used Substance and Sexual Activity Alcohol use: Not Currently Drug use: Yes Types: Marijuana Comment: daily prn- medical card, plus non medical, last am Social Determinants of Health Financial Resource Strain: High Risk Difficulty of Paying Living Expenses: Very hard Food Insecurity: No Food Insecurity Worried About Running Out of Food in the Last Year: Never true Ran Out of Food in the Last Year: Never true Transportation Needs: Unmet Transportation Needs Lack of Transportation (Medical): Yes Lack of Transportation (Non-Medical): Yes Physical Activity: Unknown Days of Exercise per Week: 0 days Minutes of Exercise per Session: Patient refused Stress: No Stress Concern Present Feeling of Stress : Only a little Social Connections: Moderately Isolated Frequency of Communication with Friends and Family: More than three times a week Frequency of Social Gatherings with Friends and Family: Twice a week Attends Jew Services: Never Active Member of Clubs or Organizations: No Attends Club or Organization Meetings: Patient refused Marital Status: Living with partner Intimate Partner Violence: Not At Risk Fear of Current or Ex-Partner: No Emotionally Abused: No Physically Abused: No Sexually Abused: No Housing Stability: Low Risk Unable to Pay for Housing in the Last Year: No Number of Places Lived in the Last Year: 1 Unstable Housing in the Last Year: No No family history on file. Allergies Allergen Reactions Azithromycin GI intolerance Code Status: Full ROS 02/13 systems were reviewed and negative or non-contributory outside of items mentioned in the HPI. Medications Current Facility-Administered Medications: CRUSHED spironolactone tablet 100 mg (ALDACTONE), 100 mg, gastric tube, Daily, Harish Schulz M.D., 100 mg at 11/15/21 0854 folic acid tablet 1 mg, 1 mg, gastric tube, Daily, Harish Schulz M.D., 1 mg at 11/15/21 0854 furosemide tablet 40 mg (LASIX), 40 mg, gastric tube, Daily, Harish Schulz M.D., 40 mg at 11/15/21 0854 heparin (porcine) injection 5,000 Units, 5,000 Units, subcutaneous, Q8H [facility], Dina Campa M.D., 5,000 Units at 11/15/21 1333 lactulose solution 20 g (CHRONULAC), 20 g, gastric tube, TID, Gerard Andino M.D., M.S., 20 g at 11/15/21 1333 lansoprazole suspension 30 mg (PREVACID), 30 mg, gastric tube, Daily before breakfast, Harish Schulz M.D., 30 mg at 11/15/21 0620 rifAXIMin sugar-free suspension 550 mg (XIFAXAN), 550 mg, gastric tube, BID, Randal Covarrubias PharmSumaD., R.Ph., 550 mg at 11/15/21 0854 thiamine tablet 100 mg (VITAMIN B1), 100 mg, gastric tube, Daily, Harish Schulz M.D., 100 mg at11/15/21 0854 vitamin A 1,507 mcg (5,025 Unit)/0.05 mL solution 10,050 Units, 10,050 Units, gastric tube, Once per day on Wed, Randal Covarrubias Pharm.D., R.Ph., 10,050 Units at 11/14/21 0909 zinc sulfate capsule 220 mg (ZINCATE), 220 mg, gastric tube, Daily with breakfast, Harish Schulz M.D., 220 mg at 11/15/21 0854 OBJECTIVE Vitals Temperature: [36.2 ??C-36.7 ??C] 36.7 ??C Resp Rate: [16-20] 18 Blood Pressure: (113-123)/(54-67) 117/59 SpO2: [90 %-98 %] 94 % Pulse Rate: [83-97] 85 Exam General: Awake sitting in chair, tracks examiner, mute, no acute distress HEENT: Normocephalic, atraumatic Cardiovascular: Warm, well perfused Respiratory: On room air, no accessory muscle use, no increased work of breathing, equal chest rise Abdomen: Distended Skin: Jaundice, dry, intact, multiple spider angioma present Neurologic Examination: Neuro: Patient is sitting upright in chair awake. Tracks examiner and is attentive with occasional redirection. Patient is able to respond yes or no to various questions although the she does not answer all questions correctly. She shakes her head no when asked if her name is any other name besides Catia.However when asked yes or no questions about her location she nods yes that she is in a post office.Patient is unable to point to simple objects on a language screening card. Blink to threat is decreased in the left visual field. Patient also seems to have difficulty attending to her left side where her significant other is sitting even when we try to direct her towards this side of her field of vision. The patient is unable to follow any commands. Muscle tone is normal in all extremities. IMAGING MRI pending ASSESSMENT / PLAN Patient is a 31-year-old female with hepatic encephalopathy with concerns for possible focal neurologic deficit of left-sided neglect and visual field cut on examination. It is unclear at this time whether the patient's global aphasia is a sign of focal deficit or a manifestation of profound hepatic encephalopathy. At this time there does seem to be some fluctuation in her exam per report of primary team, we should continue to monitor to see if she continues to fluctuate if so we can consider possibility of obtaining an EEG in the future. MRI images are being acquired, it appears that there is a large artifact in the right posterior portion the brain on various sequences. From the imaging that is a vailable there does not appear to be any evidence of acute infarction or new lesions. Unfortunately the patient did not tolerate the MRI long enough to receive contrast studies. We will discuss these findings more, as to if any more images need to be acquired since contrast studies were not able to beobtained today. Lastly patient has been taking ciprofloxacin which has association with neurotoxicity and worsening cognitive status. Recommend changing to an alternative appropriate antibiotic, if the patient's change in mental status is due to his neurotoxicity related to this drug which can be quite profound we can expect improvement over the coming days following discontinuation of ciprofloxacin. #1 Hepatic encephalopathy #2 Decompensated alcoholic liver disease #3 Possible left visual field cut, yahir-neglect, or aphasia - MRI brain - EEG deferred - Discontinue ciprofloxacin, alternative antibiotic recommended Please do not hesitate to page the Neurology Consult pager at [phone] with any questions or concerns and we are happy to help. Gisel Edwards M.D. 11/15/21 Jody Aguilar M.B., B.Chir. - 11/15/2021 10:15 AM CDT I met up with the patient and went through the history, physical examination, and evaluation with her today, November 15, 2021. Again she sitting out in the chair within the enteric tube. She is staring into space. Apparent thismorning she was hallucinating and had echolalia. She does not have any somnolence whatsoever. OBJECTIVE PHYSICAL EXAMINATION General : Jaundiced, thin with temporal muscle wasting. Spider angioma noted on the neck. Mental : Alert in that she is looking at us and does follow instructions but will not talk. She is watching TV and is trying to ignore us. She is just staring at us as well ASSESSMENT / PLAN #1 Hepatic encephalopathy secondary to decompensated alcoholic liver disease Catia Carias is a 31-year-old lady with known alcoholic liver disease who is being readmitted withhepatic encephalopathy most likely due to noncompliance with lactulose therapy. She was on the service just a few days ago, and an infectious workup was completely normal. I suspect some of her issues could be from her other medications such as the neuromodulation she is using and the opioids. We willtry and minimize these if possible in the fpc. We have discontinued gabapentin and also decrease her opioid use #2 Ascites This is still present. #3 Nonverbal but alert ? Neurologic versus psychiatric issues going This does not represent hepatic encephalopathy. Will stop the ciprofloxacin as this may cause some neurological issues. If she continues this way will ask Neurology and Psychiatry to comment #4 Marijuana use Evon Moore RDN, TALI - 11/14/2021 2:14 PM CDT Images from the original note were not included. Clinical Nutrition: Initial Assessment Clinical Nutrition was requested to evaluate patient for positive nursing baseline nutrition screen with a MST score of 2 or greater and tube feeding recommendations/management SUBJECTIVE Ms. Carias is a 31 y.o. female admitted for altered mental status??and??jaundice??in the setting of alcoholic cirrhosis (diagnosed 01/2021) PMH: nicotine dependence, chronic pain syndrome, GERD, chronic pancreatitis, anemia, thrombocytopenia, anxiety, cannabis use, and mood disorder Completed visit with patient today as part of face to face care. Current Nutrition (since admission): Visited patient this morning. She was awake and made eye contact but did not verbally respond to conversation. Pt's breakfast tray was in front of her but nothing consumed. Per RN, nursing staff has attempted to feed pt but she isn't able to take any food or meds in by mouth. Patient has an NGT in for lactulose administration. Pt may need enteral nutrition if PO intake does not improve. Percentage of Meals Eaten for the past 72 hrs: Meals (%) 11/14/21 1049 0 11/13/21 1436 25 Enteral Access: GI Tubes (Adults) Nasogastric Nare;Left (Active) Placement Date/Time: 11/12/21 1640 GI Tube Type: Nasogastric Length (cm): 53 cm Tube Location: Nare;Left Last verified in stomach: 11/12 via abdominal imaging Nutrition history: Unable to assess. Some notes indicate history of an eating disorder but no specific information. Food Allergies: NKFA per EMR OBJECTIVE Current nutrition orders: Current Diet Adult Diet Regular; 2,000 mg Na starting at 11/13 1120 I/Os: last BM noted 11/14, net +300 mL fluids Skin integrity: +2 RLE and LLE edema per nursing flowsheets, ascites present Pertinent Labs: Last 3 results Lab Units 11/14/21 0656 11/13/21 0619 11/12/21 0154 11/12/21 0151 SODIUM P mmol/L -- -- 133* -- POC SODIUM mmol/L -- -- -- 138 SODIUM mmol/L 139 139 -- -- POTASSIUM mmol/L 4.2 4.3 -- -- POC POTASSIUM VENOUS mmol/L -- -- -- 3.9 POTASSIUM P mmol/L -- -- 3.8 -- CHLORIDE P mmol/L -- -- 102 -- CHLORIDE mmol/L 107 107 -- -- BUN P mg/dL -- -- 12 -- BUN mg/dL 18 14 -- -- CREATININE mg/dL 0.56* 0.58* -- -- CREATININE P mg/dL -- -- 0.70 -- CALCIUM P mg/dL -- -- 8.9 -- CALCIUM mg/dL 9.1 8.6 -- -- Vitamin/Minerals: Medications: Scheduled Meds:spironolactone, 100 mg, gastric tube, Daily folic acid, 1 mg, gastric tube, Daily furosemide, 40 mg, gastric tube, Daily heparin (porcine), 5,000 Units, subcutaneous, Q8H [place] lactulose, 20 g, gastric tube, TID lansoprazole, 30 mg, gastric tube, Daily before breakfast rifAXIMin, 550 mg, gastric tube, BID thiamine, 100 mg, gastric tube, Daily vitamin A, 10,050 Units, gastric tube, Once per day on Wed zinc sulfate, 220 mg, gastric tube, Daily with breakfast Anthropometrics: Height: 159 cm Admission Weight: 71.9 kg (11/12/2021) Current Weight: 71.9 kg [place] Body Weight (Calculated) : 51.4 kg BMI (Calculated): 28.4 kg/m?? Weight change since admission: 0 kg Weight Change History: Per EMR, wt has trended up over the past 8 months but likely d/t fluid status. Pt's weight tends to be around 55-60 kg. Admission wt around 72 kg. Wt Readings from Last 5 Encounters: 11/14/21 71.9 kg 11/09/21 71.9 kg 10/03/21 60.7 kg 10/03/21 60.9 kg 10/01/21 61.6 kg Estimated Needs: Total Calorie Needs: 9448-6012 calories/day Method to Estimate Energy Needs: [place] (Basal to Basal + 10%) Weight Used for Equation Calculations: 71.9 kg (admit wt) Total Protein Needs: 62 - 77 grams/day (Method to Estimate Protein Needs (g/kg): 1.2 - 1.5 gm/kg) Weight Used to Calculate Protein Needs (Kg): 51.5 kg (ideal body wt) Nutrition Diagnosis: Inadequate oral intake related to encephalopathy as evidenced by documentation of no intake Malnutrition Criteria: Average estimated Intake: Other (Comment) (poor intake x3 days) Weight Loss: Unable to Assess (wt trended up likely d/t fluid status and may be masking actual wt loss) Body Fat: Mild Loss Muscle Mass: Moderate Loss Nutritional Status: Non-severe (moderate) Malnutrition (at risk for severe) Malnutrition in the Context of: Chronic Illness ASSESSMENT / PLAN Patient meets ASPEN/AND criteria for Non-severe (moderate) Malnutrition (at risk for severe) (11/14/2021 2:16 PM) See Nutrition Focused Physical Findings section for details. Nutrition Intervention: Interventions: Enteral nutrition, Vitamin and mineral supplements (tube feeding if within GOC). Recommendations: ??? Monitor for refeeding labs (K, Phos, and Mg) when nutrition increases ??? Consider switching to IV thiamine d/t refeeding risk and encephalopathy ??? If PO intake does not improve within the next 1-2 days, consider if enteral nutrition is within goals of care ??? If concerns for intolerance or diarrhea, consider re-checking tube is in the stomach (last verified 11/12 via abdominal imaging) ??? If starting tube feeds via NGT, consider: o Provider to order; RD to manage o Formula: Nutren 1.5 o Advancement rate: - Day 1: 125 mL TID - Day 2: 250 mL TID - Day 3: 375 mL TID - Day 4: 250-500-250 mL (goal rate) o Water flushes: minimum 30 mL before/after each bolus feed for tube patency; adjust per primary team Enteral nutrition as recommended will provide 1000 mL formula, 1500 calories, and 68 gm protein, [id number]% of Dietary Reference Intake for vitamins/minerals [place] ?? Ensure patient's head is elevated 30 degrees or more during and 1 hour after bolus feeds ?? Consider if patient would benefit from formal swallow evaluation if safety concerns arise ?? If patient is eating orally: ?? Patient eats 0-25% meal, give 100% bolus feed ?? Patient eats 50% meal, give 50% bolus feed ?? Patient eats 75-100% meal, hold bolus feed ?? Continue current vitamin/mineral supplementation ?? Consider re-checking Vitamin A levels Monitoring/Evaluation: Nutrition parameter to monitor: Enteral, Meals/Supplement Intake, Weight Status, Pertinent Labs, Chewing/Swallowing, Nausea/Vomiting/Diarrhea, Fluid Balance, Mental Status/Confusion Desired Outcome: Pt to receive adequate nutrition Patient Goal(s): 1. Patient to eat orally to meet nutrition needs 2. Patient to tolerate TF if not eating orally For questions about patient's nutritional care please contact pager [phone] on weekdays or [phone] on weekends/holidays. Gerard Andino M.D., M.S. - 11/14/2021 11:19 AM CDT [facility] Gastroenterology A PROGRESS NOTE SUBJECTIVE Ms. Carias had no acute events overnight. She continues to refuse lactulose orally and has been taking it via NG tube. She is nonverbal and would not communicate with me this morning. However, per the nursing team she has been intermittently verbally communicating with them when she has needed to use the restroom. I have reviewed the current medication list. OBJECTIVE VITAL SIGNS Temperature: [36.1 ??C-36.7 ??C] 36.3 ??C Resp Rate: [14-16] 16 Blood Pressure: (108-129)/(57-70) 127/58 SpO2: [96 %-98 %] 98 % Height: [159 cm] 159 cm Weight: [71.9 kg] 71.9 kg BSA (Calculated - sq m): [1.78 sq meters] 1.78 sq meters BMI (Calculated): [28.4 kg/m??] 28.4 kg/m?? Pulse Rate: [77-87] 80 PHYSICAL EXAM Constitutional General: She is not in acute distress. Eyes General: No scleral icterus. Cardiovascular Rate and Rhythm: Normal rate and regular rhythm. Heart sounds: No murmur heard. No friction rub. No gallop. Pulmonary Effort: Pulmonary effort is normal. No respiratory distress. Breath sounds: No wheezing, rhonchi or rales. Abdominal Palpations: Abdomen is soft. Tenderness: There is no abdominal tenderness. There is no guarding or rebound. Skin Coloration: Skin is jaundiced. Neurological General: No focal deficit present. Comments: Non verbal but alert. Will not cooperate with neurologic exam Psychiatric Mood and Affect: Mood is depressed. Affect is flat. Speech: She is noncommunicative. DIAGNOSTICS I have personally reviewed the laboratory data and imaging since admission, and in/outs for past 72 hours. ASSESSMENT / PLAN Ms. Carias is hospitalized on [facility] Gastroenterology A for evaluation and management of hepatic encephalopathy in the setting of lactulose noncompliance. Her encephalopathy has resolved with appropriate administration of lactulose and bowel movement resumption. She is nonverbal at the moment but alert. Derrek not think this is customer success representative of hepatic encephalopathy and is rather behavioral. We will liaise with palliative care and care management today to help create a care plan to help minimize her encephalopathy recurrence and rehospitalization risk. Plan for today - keep NG tube in place while she will not take po lactulose - Care management consult for medication compliance strategies to minimize readmission risk - palliative medicine consult - discontinue prophylactic ciprofloxacin in case this is contributing to her nonverbal state # decompensated alcoholic cirrhosis # hepatic encephalopathy - MELD-Na score on admission 32 - 2g Na restriction diet - discontinue prophylactic ciprofloxacin in case this is contributing to her nonverbal state - lactulose 20-30g tid, titrate to 2-3 soft BMs per day - nonpharmacologic delirium measures - continue spironolactone 100mg po qd and Lasix 40mg po qd - resume diet - keep NG tube in place while she will not take po lactulose - Care management consult for medication compliance strategies to minimize readmission risk - palliative medicine consult ?? # nonverbal but alert - suspect this is behavioral in nature rather than metabolic or neurologic, will continue to work with her while her boyfriend Lobito is present and appreciate input from our CM and palliative colleagues #??Anxiety # Eating disorder -??Holding home hydroxyzine, oxycodone, ropinirole pending improvement of mental status ?? # COVID positive outside ED, no respiratory symptoms - repeat Covid swab positive on admission, dc'd due to negative antigen test ?? Baseline Mobility: BMAT Level 4 (Able to stand and walk) Diet: 2g Na diet Tubes/lines: PIV VTE prophylaxis: heparin Code status: Full Code, not discussed on admission due to AMS Surrogate Decision Maker: Parent, Mother Disposition: Home This patient was seen and discussed with Dr. Aguilar who was present for judd evaluation and management. Please see the supervisory note for further details. Please contact the primary service pager - [phone] with any questions. Electronically signed by: Gerard Andino M.D. Internal Medicine PGY-2 11/14/21 11:26 AM CDT Jody Aguilar M.B., B.Chir. - 11/14/2021 10:09 AM CDT I agree with the history, physical examination, and evaluation as described by Dr. Andino from today, November 13, 2021. She sitting out in the chair with a nasoenteric tube. She is refusing to take lactulose orally but will have it through the tube. She she looks at us but is nonverbal. She is not somnolent. She is not even giving us the thumbs up on a regular basis as she was yesterday. She had 2 bowel movements yesterday. OBJECTIVE PHYSICAL EXAMINATION General : Jaundiced, thin with temporal muscle wasting. Mental : Alert in that she is looking at us and does follow instructions but will not talk. She is watching TV and is trying to ignore us. ASSESSMENT / PLAN #1 Hepatic encephalopathy secondary to decompensated alcoholic liver disease Catia Carias is a 31-year-old lady with known alcoholic liver disease who is being readmitted withhepatic encephalopathy most likely due to noncompliance with lactulose therapy. She was on the service just 2 days ago, and an infectious workup was completely normal. I suspect some of her issues could be from her other medications such as the neuromodulation she is using and the opioids. 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 We have discontinued gabapentin and also decrease her opioid use #2 Ascites This is still present. #3 Nonverbal but alert This does not represent hepatic encephalopathy. Will stop the ciprofloxacin as this may cause some neurological issues. If she continues this way will ask Neurology and Psychiatry to comment #4 Marijuana use Dandy Cronell M.T.Lance. - 11/13/2021 2:30 PM CDT Encounter: Spiritual Care Situation: This Catia Carias shared that she was getting a little bit better. Pt was still confused. She also said that she does not know anyhing about her episcopalian. Family: Family members were not present Maria De Jesus/Tradition: The patient's episcopalian is unknown Plan: Will remain available for spiritual care as needed or requested. Chaplains can be contacted bypaging [phone] ([employer]) or [phone] ([place]). Jody Aguilar M.B., B.Chir. - 11/13/2021 10:05 AM CDT I agree with the history, physical examination, and evaluation as described by Dr. Andino from today, November 12, 2021. A nasoenteric tube was placed yesterday as she was refusing lactulose enemas. She received lectures nasogastric leak and this morning she is sitting out in bed much more alert. He does not know why shedid not take her lactulose when we dismissed her 2 days OBJECTIVE PHYSICAL EXAMINATION General : Jaundiced, thin with temporal muscle wasting. Mental : Alert. The not that talkative today. She is giving us the thumbs up sign to answer questions. ASSESSMENT / PLAN #1 Hepatic encephalopathy secondary to decompensated alcoholic liver disease Catia Carias is a 31-year-old lady with known alcoholic liver disease who is being readmitted withhepatic encephalopathy most likely due to noncompliance with lactulose therapy. She was on the service just 2 days ago, and an infectious workup was completely normal. I suspect some of her issues could be from her other medications such as the neuromodulation she is using and the opioids. 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 We will discontinue gabapentin and also decrease her opioid use #2 Ascites This is still present. #3 History of acute kidney injury Repeat creatinine is still in a normal range at 0.7. #4 Marijuana use Gerard Andino M.D., M.S. - 11/13/2021 5:55 AM CDT T Gastroenterology A PROGRESS NOTE SUBJECTIVE Ms. Carias had no acute events overnight. She had 3 bowel movements yesterday with lactulose. This morning she was alert and oriented but overall minimally conversant. We discussed the importance of taking lactulose to maintain her bowel movements. She admits she was not taking lactulose at home, was unable to state a reason why, and states she had a supply of the medication at home. She states her boyfriend Lobito occasionally helps her with medications ???when she lets him. She was not overly conversant about this topic. She denies any bothersome symptoms at this time. I have reviewed the current medication list. OBJECTIVE VITAL SIGNS Temperature: [36.4 ??C-36.6 ??C] 36.6 ??C Heart Rate: [90] 90 Resp Rate: [14-16] 16 Blood Pressure: (106-119)/(52-63) 119/52 SpO2: [96 %-100 %] 98 % Pulse Rate: [83-101] 90 PHYSICAL EXAM Constitutional General: She is not in acute distress. Eyes General: No scleral icterus. Cardiovascular Rate and Rhythm: Normal rate and regular rhythm. Heart sounds: No murmur heard. No friction rub. No gallop. Pulmonary Effort: Pulmonary effort is normal. No respiratory distress. Breath sounds: No wheezing, rhonchi or rales. Abdominal Palpations: Abdomen is soft. Tenderness: There is no abdominal tenderness. There is no guarding or rebound. Skin Coloration: Skin is jaundiced. Neurological General: No focal deficit present. Mental Status: She is alert and oriented to person, place, and time. Comments: Mild asterixis Psychiatric Mood and Affect: Mood is depressed. Affect is flat. Comments: Minimally communicative DIAGNOSTICS I have personally reviewed the laboratory data and imaging since admission, and in/outs for past 72 hours. ASSESSMENT / PLAN Ms. Carias is hospitalized on [facility] Gastroenterology A for evaluation and management of hepatic encephalopathy in the setting of lactulose noncompliance. Her encephalopathy has resolved with appropriate administration of lactulose and bowel movement resumption. We will continue to engage Ms. Carias and her colleagues to, but strategies to help with medication compliance and hopefully prevent further recurrences of hepatic encephalopathy. Plan for today - resume diet - remove NG tube if tolerating po lactulose - Care management consult for medication compliance strategies to minimize readmission risk # decompensated alcoholic cirrhosis # hepatic encephalopathy - MELD-Na score on admission 32 - 2g Na restriction diet - continue prophylactic cipro for SBP - lactulose 20-30g tid, titrate to 2-3 soft BMs per day - nonpharmacologic delirium measures - continue spironolactone 100mg po qd and Lasix 40mg po qd - resume diet - remove NG tube if tolerating po lactulose - Care management consult for medication compliance strategies to minimize readmission risk ?? #??Anxiety # Eating disorder -??Holding home hydroxyzine, oxycodone, ropinirole pending improvement of mental status ?? # COVID positive outside ED, no respiratory symptoms - repeat Covid swab positive on admission, awaiting negative antigen test to dc modified contact precautions ?? Baseline Mobility: BMAT Level 4 (Able to stand and walk) Diet: 2g Na diet Tubes/lines: PIV VTE prophylaxis: heparin Code status: Full Code, not discussed on admission due to AMS Surrogate Decision Maker: Parent, Mother Disposition: Home This patient was seen and discussed with Dr. Aguilar who was present for judd evaluation and management. Please see the supervisory note for further details. Please contact the primary service pager - [phone] with any questions. Electronically signed by: Gerard Andino M.D. Internal Medicine PGY-2 11/13/21 11:24 AM CDT Evon Rodriguez Pharm.D., R.Ph. - 11/12/2021 7:34 AM CDT Pharmacist Progress Note Reason for admission: AMS, likely HE due to lactulose non-compliance. She was just discharged 11/10 after being hospitalized for the same reason. PMH: alcoholic cirrhosis undergoing transplant evaluation, nicotine dependence, cannabis use, chronic pain syndrome, anxiety, mood disorder, GERD, chronic pancreatitis, anemia, OBJECTIVE Home medications: Provider completed last admission. ?? Held: vitamin D, gabapentin, hydroxyzine, magnesium, zofran, oxycodone, pantoprazole, ropinirole,spironolactone, medical cannabis Prophylaxis: SQH (plts 48) Estimated Creatinine Clearance: 132.2 mL/min (by C-G formula based on SCr of 0.7 mg/dL). ASSESSMENT / PLAN 1. Confusion 2/2 hepatic encephalopathy: Head CT negative. Lactulose enema ordered x1, PO lactulose and rifaximin also resumed. Zinc started last admission for low level 09/30. Holding ropinirole, gabapentin (recommend resuming low dose to prevent withdrawal when awake), oxycodone. Recommend reducing dose of gabapentin on discharge and re-assessing if she needs these medications continued. 2. Decompensated cirrhosis: Continue ciprofloxacin ppx, furosemide, spironolactone, vitamin A. 3. COVID positive: Initial infection 08/29, on room air now. No COVID therapies indicated. Evon Rodriguez Pharm.D., R.Ph. [phone] documented in this encounter H&P Notes Jody Aguilar M.B., B.Chir. - 11/12/2021 10:08 AM CDT I agree with the history, physical examination, and evaluation as described by Dr. Andino from today, November 16, 2021. CHIEF COMPLAINT/REASON FOR VISIT Altered mental status. HISTORY OF PRESENT ILLNESS Catia Carias was recently on our service with hepatic encephalopathy and was dismissed doing well but has failed to take her lactulose for the last 2 days and has come back with somnolence and difficulty with confusion. On arrival, she had disorganized speech and was unable to follow commands and very somnolent. Of note, she has a chronic pain syndrome and is on neuromodulation as well as opioids and marijuana. The patient's significant other states that the patient has not taken lactulose even though when she left 2 days ago, she was well aware that she had to! OBJECTIVE PHYSICAL EXAMINATION General : Jaundiced, thin with temporal muscle wasting. Mental : Very somnolent. Can be awoken with sternal rub. ASSESSMENT / PLAN #1 Hepatic encephalopathy secondary to decompensated alcoholic liver disease Catia Carias is a 31-year-old lady with known alcoholic liver disease who is being readmitted withhepatic encephalopathy most likely due to noncompliance with lactulose therapy. She was on the service just 2 days ago, and an infectious workup was completely normal. I suspect some of her issues could be from her other medications such as the neuromodulation she is using and the opioids. We will tryand minimize these if possible in the fpc. #2 Ascites This is still present. #3 History of acute kidney injury Repeat creatinine is still in a normal range at 0.7. #4 Marijuana use Gerard Andino M.D., M.S. - 11/12/2021 3:38 AM CDT [facility] Gastroenterology A Admission Note REFERRAL SOURCE: [facility] Emergency Department PRIMARY CARE PROVIDER: Primary Care Providers: Elsewhere, Pcp (General) No address on file Phone: None Fax: None SUBJECTIVE CHIEF COMPLAINT Altered mental status HISTORY OF PRESENT ILLNESS Ms. Catia Carias is a 31 y.o. female who presents with altered mental status and jaundice in the setting of alcoholic cirrhosis (diagnosed 01/2021). [facility] is otherwise significant for nicotine dependence, chronic pain syndrome, GERD, chronic pancreatitis, anemia, thrombocytopenia, anxiety, cannabis use, and mood disorder. She follows with Dr. Jerome in the outpatient setting undergoing transplant evaluation. Ms. Carias was discharged from our service on 11/11/2021. She had been hospitalized for hepatic encephalopathy due to lactulose noncompliance. Her encephalopathy had improved with lactulose. He had also undergone paracentesis on this admission which had ruled out SBP. History is obtained from chart review as the patient was unable to provide history due to altered mental status. After discharge, apparently the patient went home and did not take any lactulose. She had 1 bowel movements throughout the day. She became progressively more confused. She was transferred via EMS to the [facility] Emergency Department. On arrival, patient reportedly had disorganized speech. She was unable to follow commands. On arrival to the ED she was afebrile at 36.8?? C, mildly tachycardic at 101 bpm, normotensive at 125/80, and saturating well on room air. Labs were significant for hemoglobin 8.7 (up from 7.4 the day prior), stable thrombocytopenia 48, stable white blood cell count 7.7, INR 3.3, hyponatremia 133, total bilirubin 18 [...] open her eyes and count fingers. She was otherwise unable to follow commands. I have reviewed and updated the following: Past Medical History, Family History, Social History, andAllergies. Current Outpatient Medications on File Prior to Encounter: ??? ciprofloxacin (CIPRO) 500 mg tablet, Take 1 tablet (500 mg total) by mouth every morning before breakfast. ??? ergocalciferol (DRISDOL) 50,000 Unit capsule, Take 50,000 Units by mouth once a week. ??? folic acid 1 mg tablet, Take 1 mg by mouth daily. ??? furosemide (LASIX) 20 mg tablet, Take 2 tablets (40 mg total) by mouth daily. ??? gabapentin (NEURONTIN) 300 mg capsule, Take by mouth 3 (three) times a day. Takes 600 mg in the morning, 600 mg in the afternoon, and 900 mg at bedtime. ??? hydrOXYzine (ATARAX) 25 mg tablet, Take 25-50 mg by mouth at bedtime as needed (sleep). ??? lactulose (CHRONULAC) 10 gram/15 mL solution, Take 15 mL (10 g total) by mouth 3 (three) times aday. Titrate to 3 soft bowel movements daily ??? levonorgestreL (MIRENA) 20 mcg/24 hours (7 yrs) 52 mg IUD, 1 each by intrauterine route continuously. ??? magnesium oxide (MAG-OX) 400 mg (241.3 mg magnesium) tablet, Take 1 tablet (400 mg total) by mouth 2 (two) times a day before breakfast and dinner. ??? ondansetron ODT (ZOFRAN-ODT) 8 mg disintegrating tablet, Take 1 tablet by mouth 3 (three) times a day as needed. ??? oxyCODONE (ROXICODONE) 5 mg immediate release tablet, Take 1 tablet (5 mg total) by mouth 3 (three) times a day as needed for pain for up to 3 days Indication: Chronic Pain/Nonacute Pain. ??? pantoprazole (PROTONIX) 40 mg EC tablet, Take 1 tablet (40 mg total) by mouth every morning before breakfast. ??? rOPINIRole XL (REQUIP XL) 2 mg 24 hr tablet, Take 2 mg by mouth at bedtime. ??? spironolactone (ALDACTONE) 50 mg tablet, Take 2 tablets (100 mg total) by mouth daily. ??? thiamine (VITAMIN B1) 100 mg tablet, Take 100 mg by mouth daily. ??? UNABLE TO FIND, Apply 1 each topically daily. Med Name: Medical Cannabis [place] (50 mg THC/oz) 0.2% THC/CBD <0.1% ??? UNABLE TO FIND, Inhale 1 each as needed. Med Name: Medical Cannabis Flower, smoking once weekly as needed for sleep; details unclear ??? vitamin A 3,000 mcg (10,000 Unit) capsule, Take 1 capsule (3,000 mcg total) by mouth 3 (three) times a week for 50 doses. ??? zinc sulfate (ZINCATE) 220 (50 mg zinc) capsule, Take 1 capsule (220 mg total) by mouth daily with breakfast for 28 days. ??? [DISCONTINUED] LORazepam (ATIVAN) 1 mg tablet, Take 1 tablet (1 mg total) by mouth once for [address] scan once REVIEW OF SYSTEMS Pertinent items are noted in HPI; all other review of systems was negative. OBJECTIVE VITAL SIGNS Temperature: [36.9 ??C] 36.9 ??C Heart Rate: [91-101] 91 Resp Rate: [12-24] 21 Blood Pressure: (107-125)/(61-80) 107/61 SpO2: [94 %-97 %] 96 % Pulse Rate: [91-101] 91 PHYSICAL EXAM Constitutional Appearance: She is normal weight. She is ill-appearing. Comments: Difficult to arouse Eyes General: Scleral icterus present. Extraocular Movements: Extraocular movements intact. Cardiovascular Rate and Rhythm: Normal rate and regular rhythm. Pulses: Radial pulses are 2+ on the right side and 2+ on the left side. Dorsalis pedis pulses are 2+ on the right side and 2+ on the left side. Heart sounds: Normal heart sounds. Pulmonary Breath sounds: Examination of the right-lower field reveals rales. Examination of the left-lower field reveals rales. Rales present. Abdominal General: Bowel sounds are normal. There is no distension. Palpations: Abdomen is soft. There is shifting dullness. Tenderness: There is no abdominal tenderness. There is no guarding or rebound. Musculoskeletal Right lower le+ Pitting Edema present. Left lower le+ Pitting Edema present. Skin Coloration: Skin is jaundiced. Neurological Comments: Lethargic, minimally responsive. Able to track fingers when eyes manually opened. Able tocount fingers. Cannot answer orientation questions. Did not withdrawal to nailbed pressure in all 4 extremities. DIAGNOSTICS I have reviewed the labs and diagnostics from admission and pertinent findings are detailed in the HPI. ASSESSMENT / PLAN Ms. Carias is a 31 y.o. female with pertinent comorbidities including alcoholic cirrhosis who is hospitalized on [facility] for evaluation and management of altered mental status. She was just discharged from the hospital yesterday for hepatic encephalopathy. Her ammonia is elevated though not to the same degree as on her recent admission. However, in the setting of her recent hepatic encephalopathy as well as lack of adherence to lactulose on discharge, I think hepatic encephalopathy is the most likely etiology of her altered mental status, especially given her normal CT scan on admission. Given she cannot tolerate p.o. medications right now due to her mentation, I will proceed with lactulose enemas and transition to oral lactulose and rifaximin when able. # decompensated alcoholic cirrhosis # hepatic encephalopathy - MELD-Na score on admission 32 - no significant ascites, unchanged from yesterday - 2g Na restriction when able to resume oral intake - daily weights - low concern for SBP given diagnostic paracentesis performed within last 48 hours for similar symptoms - continue prophylactic cipro for SBP - lactulose enema until she can tolerate po lactulose - lactulose 20-30g tid, titrate to 2-3 soft BMs per day - nonpharmacologic delirium measures - continue spironolactone 100mg po qd and Lasix 40mg po qd - no evidence of active GI bleed # Anxiety # Eating disorder - Holding home hydroxyzine, oxycodone, ropinirole pending improvement of mental status # COVID positive outside ED, no respiratory symptoms - repeat Covid swab positive on admission, on modified contact for now Baseline Mobility: BMAT Level 4 (Able to stand and walk) Diet: npo diet Tubes/lines: PIV VTE prophylaxis: heparin Code status: Full Code, not discussed due to AMS Surrogate Decision Maker: Parent, Mother Disposition: Home This patient will be formally staffed with GI A data quality consultant Dr. Aguilar in the morning. Please see the supervisory note for further details. Please contact the primary service pager - [phone] with any questions. Electronically signed by: Gerard Andino M.D. Internal Medicine PGY-2 11/12/21 7:12 AM CDT documented in this encounter Procedure Notes Titi Oswald M.D. - 11/12/2021 1:58 AM CDTAssociated Order(s): Peripheral Venous Access Procedure Peripheral Venous Access Date/Time: 11/12/2021 1:58 AM Performed by: Titi Oswald M.D. Authorized by: Rosaura Sevilla M.D., M.P.H. Care team members present 1. Titi Oswald M.D. 2. Ervin Morales M.D. PROCEDURE DETAILS Ultrasound image guidance used to localize target, identify at risk structures, and dynamically usedto direct therapy to the target. Image(s) acquired and saved. Size (gauge): 18 G Number of attempts: 1 CONSENT Consent obtained: none - emergent situation UNIVERSAL PROTOCOL All relevant documentation and testing [...] pause. PRE-PROCEDURE DETAILS Indication: IV access needed Location: Upper extremity Upper extremity: Left arm Skin preparation: Chlorhexidine SEDATION / ANESTHESIA Anesthesia method: none POST-PROCEDURE DETAILS: Assessment: free fluid flow Procedure completed successfully: yes Complications: no immediate complications Titi Oswald M.D. Resident 11/12/21 0629 documented in this encounter Consult Notes David Bteh M.D. - 11/15/2021 12:42 PM CDTAssociated Order(s): IP CONSULT TO NEUROLOGY I personally met with and examined the patient after a detailed review of the record with Dr. Edwardsand discussion of the history, examination, and plan of care. Please refer to the additional documentation by Dr. Edwards from today's date for complete details, with which I agree except as indicated below. ASSESSMENT / PLAN WHAT IS THIS and WHAT TO DO? Ms. Christelle Carias is a 31-year-old woman with obvious hepatic encephalopathy but also possible signs of focal neurologic deficits on exam, including possible left visual field cut, neglect, and/or aphasia.The recent CT scan of the head did not show an intracranial lesion, we need more detailed brain imaging. Please arrange MRI brain without and with gadolinium contrast. Based on those results, we may later request EEG and/or CSF examination. We will continue to follow. Please page the Neurology Consult Service ([phone]) with any questions. DIAGNOSES #1 Hepatic encephalopathy #2 Decompensated alcoholic liver disease #3 Possible left visual field cut, yahir-neglect, or aphasia Donna Varghese M.D. - 11/15/2021 11:57 AM CDT SUBJECTIVE REASON FOR CONSULT Evaluation for acute mental status change. HISTORY OF PRESENT ILLNESS Ms. Carias is a 31-year-old with a medical history significant for alcohol- associated cirrhosis of the liver, severe alcohol use disorder with last use in July 2020 per the report of her and her boyfriend. She had 2 recent hospitalizations, 1 on the October, where she had presented with alter ed mental status and jaundice in the context of hepatic encephalopathy. She has had a history of decompensated liver disease with hyperammonemia in the context of incomplete adherence to lactulose. However, following her admission on the , she was discharged on the after improvement, but cameback again on the after having failed to take lactulose for 2 days, with both somnolence and confusion. Per her admission note, she was found to have disorganized speech, was unable to follow simple commands, and was quite somnolent on admission on the . I spoke with her boyfriend, since the patient herself was nonconversant, and he said that there was a significant change in her presentation at the time of her 2nd admission. He has not seen her this way, and he notes that he has seen her previously confused in the context of hyperammonemia, but that this is different per his read. He notes that she has been much less interactive. She has occasionally said a few words here and there, which at times did not make sense to him. He also notes that for the most part she is noncommunicative, but occasionally makes some nonverbal gestures. Upon interview today with me, she did not lookin my direction. She did not follow any simple commands and did not answer any questions at all. Shewas seen by my colleague, Dr. Winston, initially, who told me that Ms. Carias was not interactive with her either. She appeared quite jaundiced and apparently at 1 point yawned, but did not answer any of the questions. Looking through her Psychiatry notes, it appears that she was given a diagnosis of possible denise following an inpatient evaluation in March 2021, but it is unclear as to whether she had any manic symptoms at that time. She apparently was unresponsive and had some mental status changes. This is in a background of no prior affective illness. She was assessed by Brigid Keen M.D., for a pre-transplant evaluation in October 2021, at which time a diagnosis of an eating disorder and anorexia and bulimia was made but no mood disorder was found to be present. OBJECTIVE MENTAL STATUS EXAM: Ms. Carias is a 31-year-old, severely cachectic, jaundiced female who was lying in bed with a nasogastric tube. She did not make eye contact. She could not follow simple commands. She was nonverbal. Shewas not responding to any internal stimuli. ASSESSMENT / PLAN DIAGNOSIS: #1 Hepatic encephalopathy versus hypoactive delirium versus catatonia versus acute neurological event Ms. Carias' history and current presentation do not support a diagnosis of a mood or an affective disorder. The current presentation is also not particularly consistent with catatonia. Per her boyfriend's report, she has had previous hyperammonemic encephalopathy presentations, but this appears different. Based on this, my suspicion is that we are likely dealing with either an acute neurological event, which is currently being evaluated, or likely hypoactive delirium which is multifactorial. At this point, I would wait for the neurological evaluation to be completed, and if at that point noacute neurological event has been found to be the etiology, have her continue to work on medical stabilization which I suspect will help improve the delirium-related symptoms and resolution of these current symptoms. From a psychiatry standpoint, given that she has already had an Ativan challenge with no response, Derrek not think that any other medication challenges or other interventions are warranted immediately, but we will continue to follow along before we finally sign off. Rest per Dr. Winston's note. Donna Varghese M.D. CT CT Job ID: [id number] Milagros Patel L.G.S.W., M.S.W. - 11/15/2021 11:03 AM CDTAssociated Order(s): IP CONSULT TO CARE MANAGEMENT SUBJECTIVE Social work was consulted for medication compliance strategies. Please refer to full biopsychosocial assessment dated 09/30/21, by Parris Tan. Social work spoke with patients significant other Lobito, over the phone for information. Patient is not appropriate for consulta this time due to mentation. Patient is a 31-year-old female that has been hospitalized for change in mental status. Lobito reports that he noticed a change in the patient within the last week. Lobito reports that last Wednesday and Wednesday, patient slept more than usual. Wednesday she was not responding to him and he called the ambulance. It is believed that patient has been non-compliance with the lactose. Patient has once weekly home nursing to help with medications with [facility]. Social work will reconnect to services. Lobito appreciates regular medical updates. OBJECTIVE Patient is hospitalized on [id number]. ASSESSMENT / PLAN ASSESSMENT Patient not appropriate to assess. Patient significant other Lobito is a reliable historian. PLAN -social work submitted the reconnect to [facility] service. Danny Babin, M.S.W. 11/15/21 T Rachel Winston M.D. - 11/15/2021 9:11 AM CDT Psychiatry Consult Note Consult Question - encephalopathy and hallucination not explained by hepatic etiology, concern for catatonia RECOMMENDATIONS *Please refer to the data quality consultant's note for final recommendations* Patient's presentation does not appear consistent with psychiatric etiology. Concern for catatonia at this juncture is low. Minimal response to Ativan challenge on 11/14. Presentation appears more consistent with hypoactive delirium. Will defer further recommendations until Neurology completes workup, which includes brain MRI. Will continue to follow along in the interim. Impression # hepatic encephalopathy versus hypoactive delirium # medical comorbidities Safety - Risk of suicide in a hospital setting estimated to be low Hold status - Voluntary, but reassess if demands to leave Psychiatric hospitalization - does not meet criteria at this time. SUBJECTIVE Referring team: [facility] HISTORY OF PRESENT ILLNESS Ms. Catia Carias is a 31 y.o. female from [place], [place] who was admitted 11/12/2021 1:11 AM for altered mental status and jaundice in the setting of alcoholic cirrhosis (diagnosed 01/2021, followingDr. Jerome in the outpatient setting for transplant evaluation.). Medical history notable for nicotine dependence, chronic pain syndrome, GERD, chronic pancreatitis, anemia, thrombocytopenia, anxiety, cannabis use, and mood disorder. Psychiatry is consulted for further evaluation of encephalopathy and hallucinations, possible catatonia, unexplained by hepatic etiology. Per review of medical records, Catia had a manic episode when she was hospitalized for encephalopathy due to hepatic etiology, bacterial peritonitis 03/2021. Per notes, her speech was rapid and tangential. Thoughts became disorganized. She was not sleeping. She began to stutter and slur her words. Psychiatry was consulted. Upon initial presentation, Catia appeared organic. She stuttered quite a bit and mumbled. It was difficult to understand. In several minutes however her speech cleared. Although she initially appeared potentially delirious, she was not distractible on specific tests such as tapping to the letter A. She was actively psychotic however. She was having visual hallucinations as well as auditory. Psychiatry recommended further outpatient follow up for further management. On interview, the patient was interviewed with her boyfriend present, who helped provide her history. The patient is somewhat interactive, but non-verbal. She initially is seated and appeared to be watching a movie. She is able to make eye contact intermittently and at one point appeared to attempt tospeak, but then yawned. She shifts from laying back in her chair to sitting forward. Her boyfriend confirms that the patient was diagnosed with alcohol cirrhosis in 01/2021. Her does notbelieve she has consumed alcohol since then. She has continued using cannabis daily, but the frequency decreased in the last month. He is unaware of any psychiatric history, but believes she was prescribed lorazepam at some point for unknown reasons. He notes that she is prescribed oxycodone and gabapentin for severe neuropathy. He confirms that she was hospitalized in 03/2021 with hepatic encephalopathy. Boyienshanita notes that when she first returned to the hospital on 11/12/2021, her encephalopathy looked similar to that in 03/2021, however, last night, her encephalopathy appeared noticeably different. He shares that patient attempted to say I love you last night, but had marked difficulties forming her speech as evidenced by marked effort and delay in word production. He affirmed that she had episodes of echolalia. He is quite concerned about her lack of interaction with her environment, which has waxed and waned. Psychiatric ROS As per HPI above. Limited by patient's inability to communicate Psychiatric History Limited by patient's inability to communicate. Family Mental Health History: Limited by patient's inability to communicate. SOCIAL HISTORY Social History Social History Narrative Not on file Social History Socioeconomic History Marital status: Single Highest education level: Associate degree: occupational, technical, or vocational program Tobacco Use Smoking status: Former Packs/day: 1.00 Years: 12.00 Pack years: 12.00 Types: Cigarettes Start date: 05/03/2009 Quit date: 10/20/2021 Years since quittin.0 Smokeless tobacco: Never Tobacco comments: 2-3 cpd since July 27, 2021 Vaping Use Vaping Use: never used Substance and Sexual Activity Alcohol use: Not Currently Drug use: Yes Types: Marijuana Comment: daily prn- medical card, plus non medical, last Social Determinants of Health Financial Resource Strain: High Risk Difficulty of Paying Living Expenses: Very hard Food Insecurity: No Food Insecurity Worried About Running Out of Food in the Last Year: Never true Ran Out of Food in the Last Year: Never true Transportation Needs: Unmet Transportation Needs Lack of Transportation (Medical): Yes Lack of Transportation (Non-Medical): Yes Physical Activity: Unknown Days of Exercise per Week: 0 days Minutes of Exercise per Session: Patient refused Stress: No Stress Concern Present Feeling of Stress : Only a little Social Connections: Moderately Isolated Frequency of Communication with Friends and Family: More than three times a week Frequency of Social Gatherings with Friends and Family: Twice a week Attends Jew Services: Never Active Member of Clubs or Organizations: No Attends Club or Organization Meetings: Patient refused Marital Status: Living with partner Intimate Partner Violence: Not At Risk Fear of Current or Ex-Partner: No Emotionally Abused: No Physically Abused: No Sexually Abused: No Housing Stability: Low Risk Unable to Pay for Housing in the Last Year: No Number of Places Lived in the Last Year: 1 Unstable Housing in the Last Year: No Medical / Surgical History Reviewed. Past Medical History: Diagnosis Date Ascites Cirrhosis Alcoholic (HCC) Cirrhosis Of Liver NOS Deficiency Coagulation Acquired (HCC) 07/07/2021 Jaundice Past Surgical History: Procedure Laterality Date ELBOW SURGERY Left 2018 per patient TENDON REPAIR Left left foot per patient Medications Medications Scheduled Medication Ordered Dose/Rate, Route, Frequency Last Action CRUSHED spironolactone tablet 100 mg (ALDACTONE) 100 mg, gastric tube, Daily Given, 100 mg at folic acid tablet 1 mg 1 mg, gastric tube, Daily Given, 1 mg at 11/15 853 furosemide tablet 40 mg (LASIX) 40 mg, gastric tube, Daily Given, 40 mg at 11/15 853 heparin (porcine) injection 5,000 Units 5,000 Units, SC, Q8H LAWRENCE Ordered lactulose solution 20 g (CHRONULAC) 20 g, gastric tube, TID Given, 20 g at 11/15 853 lansoprazole suspension 30 mg (PREVACID) 30 mg, gastric tube, Daily before breakfast Given, 30 mg at 11/16 619 rifAXIMin sugar-free suspension 550 mg (XIFAXAN) 550 mg, gastric tube, BID Given, 550 mg at 11/15 853 thiamine tablet 100 mg (VITAMIN B1) 100 mg, gastric tube, Daily Given, 100 mg at 11/15 853 vitamin A 1,507 mcg (5,025 Unit)/0.05 mL solution 10,050 Units 10,050 Units, gastric tube, 3x weekly Given, 10,050 Units at 11/14 908 zinc sulfate capsule 220 mg (ZINCATE) 220 mg, gastric tube, Daily with breakfast Given, 220 mg at 11/15 853 OBJECTIVE Vital Signs Temperature: 36.6 ??C Resp Rate: 18 Blood Pressure: 113/56 SpO2: 97 % Height: 159 cm Weight: 71.9 kg BMI (Calculated): 28.4 kg/m?? Mental Status Examination (MSE): Ms. Carias appeared jaundiced with distended abdomen. Wearing casual clothing, somewhat unkempt. Intermittent eye contact. Sitting in chair, shifted position from sitting back to sitting up at various points during interview. Appeared unable to speak. Affect appeared restricted, minimally interactive. Unable to assess thought process. No suggestion of homicidal ideations. There was no apparent response to internal stimuli. Unable to assess insight or judgement. Diagnostics I have reviewed diagnostic data completed at the time of evaluation. Thank you for the consultation. Please contact the [facility] on-call service pager [phone] with any questions. Rachel Winston M.D. Design Analyst Nessa Mcfarland M.D. - 11/14/2021 4:21 PM CDT [facility] Palliative Medicine LIFE SKILLS COORDINATOR VOLUNTEER/PA Collaborative Visit Note I have discussed the patient with Zenobia Nguyễn APRN/DAPHNEY. I have reviewed the pertinent history. I discussed the impression and plan with the LIFE SKILLS COORDINATOR VOLUNTEER/PA. I agree with the history, examination, impression, and recommendations as documented in today's note from the LIFE SKILLS COORDINATOR VOLUNTEER/PA except as documented below. Ms. Carias is a 31 year old woman admitted for encephalopathy and jaundice related to alcoholic cirrhosis. Alcoholic cirrhosis was diagnosed in 01/2021 and she is currently being considered for transplant, though she has had recurrent hospitalizations recently due to not taking her lactulose. She currently has an NGT which is being used for administration of lactulose. Otherwise oral intake has been minimal. She was not really able to engage with Ms. Nguyễn during her visit. Ms. Nguyễn introduced the services and speciality of palliative care to the patient, her mother and her significant other. We will continue to follow for goals of care and support for the patient and her family. We will plan to make our next routine visit on Wednesday, but are available over the weekend if acute needs arise. Further details per Ms. Nguyễn. Nessa Hannah M.D. Zenobia Drew APRN, C.N.P., M.S.N. - 11/14/2021 3:56 PM CDTAssociated Order(s): IP CONSULT TO PALLIATIVE CARE [facility] Palliative Medicine New Consult Note Patient: Catia Carias; 31 y.o.female Location: [address] [place] [address] Date of Service: 11/14/2021 Time of Visit: 3:56 PM CDT Hospital Admission Date: 11/12/2021 1:11 AM Hospital Day: 2 Primary Loan Assistant: Jody Aguilar M.B., * Primary Care Provider: ELSEWHERE, PCP Reason for Consult: End stage alcoholic cirrhosis, MELD score 32, recurrent hospitalizations for hepatic encephalopathy with lactulose noncompliance. Would appreciate introduction of palliative care model as transplant candidacy appears unfavorable. SUBJECTIVE History of Present Illness: Ms. Christelle Carias is a 31 yo woman who presented on 11/12/21 for altered mental status and jaundice in the setting of alcoholic cirrhosis (diagnosed 01/2021). Her medical history is significant for nicotine dependence, chronic pain syndrome, GERD, chronic pancreatitis, anemia, thrombocytopenia, anxiety, myron abis use and a mood disorder. She follows with Dr. Jerome in the outpatient setting undergoing transplant evaluation. Ms. Carias was discharged from the hospital 11/11/21 having been hospitalized for hepatic encephalopathy due to lactulose noncompliance. After administration of lactulose in the hospital, her encephalopathy improved. Once discharged, Ms. Carias expressed to her significant other Lobito that something didn't feel right. Lobito reports that she slowly became more withdrawn and confused to the point he brought her back to the hospital. Upon readmission to the GI service, an NG tube was reinserted and lactulose was given. Nonetheless, Ms. Carias' mental status has not cleared as it has in the past. Other etiologies for encephalopathy are being explored/considered. Given her elevated MELD score and concerns surrounding transplant eligibility, Palliative Care has been asked to provide an introduction and participate in ongoing evolving care. I have reviewed the patient???s record in the [place] Prescription Monitoring Program ([employer]) with no unexpected findings. The following portions of the patient's history were reviewed and updated as appropriate: Allergies,Current Medications, Medical History, Surgical History, Family History and Social History Past Medical History: Diagnosis Date ??? Ascites ??? Cirrhosis Alcoholic (HCC) ??? Cirrhosis Of Liver NOS ??? Deficiency Coagulation Acquired (HCC) 07/07/2021 ??? Jaundice Past Surgical History: Procedure Laterality Date ??? ELBOW SURGERY Left 2018 per patient ??? TENDON REPAIR Left left foot per patient Social History: Has been in a relationship with Lobito for 12 years. They met shortly after high school. Together, they have a 1.5 yo Beagle named Cristy. Advance Care Planning Documents: None on file. Code Status: Full Code Review of Systems Subjective assessment limited given patient's altered cognition. Only nods her head to answer simplequestions, and her head nodding is very minimal. Palliative Functional Assessment 60% OBJECTIVE Medications Report Scheduled Medication Ordered Dose/Rate, Route, Frequency Last Action CRUSHED spironolactone tablet 100 mg (ALDACTONE) 100 mg, gastric tube, Daily Given, 100 mg at folic acid tablet 1 mg 1 mg, gastric tube, Daily Given, 1 mg at 11/14 908 furosemide tablet 40 mg (LASIX) 40 mg, gastric tube, Daily Given, 40 mg at 11/14 908 heparin (porcine) injection 5,000 Units 5,000 Units, SC, Q8H [place]WRENCE Given, 5,000 Units at 11/14 1326 lactulose solution 20 g (CHRONULAC) 20 g, gastric tube, TID Given, 20 g at 11/14 1326 lansoprazole suspension 30 mg (PREVACID) 30 mg, gastric tube, Daily before breakfast Given, 30 mg at 11/14 613 rifAXIMin sugar-free suspension 550 mg (XIFAXAN) 550 mg, gastric tube, BID Given, 550 mg at 11/14 908 thiamine tablet 100 mg (VITAMIN B1) 100 mg, gastric tube, Daily Given, 100 mg at 11/14 908 vitamin A 1,507 mcg (5,025 Unit)/0.05 mL solution 10,050 Units 10,050 Units, gastric tube, 3x weekly Given, 10,050 Units at 11/14 908 zinc sulfate capsule 220 mg (ZINCATE) 220 mg, gastric tube, Daily with breakfast Given, 220 mg at 11/14 908 Physical Exam Temperature: [36.1 ??C-36.5 ??C] 36.1 ??C Resp Rate: [14-16] 16 Blood Pressure: (109-129)/(58-70) 129/70 SpO2: [96 %-98 %] 97 % Height: [159 cm] 159 cm Weight: [71.9 kg] 71.9 kg BSA (Calculated - sq m): [1.78 sq meters] 1.78 sq meters BMI (Calculated): [28.4 kg/m??] 28.4 kg/m?? Pulse Rate: [77-89] 89 General: Ill appearing 31 yo woman seated in bedside chair. HEENT: Positive scleral icterus. Respiratory: Unlabored respirations. Skin: Jaundice. Psychiatric: Withdrawn and aloof. Diagnostics I have reviewed recent labs, imaging, and other diagnostics. ASSESSMENT / PLAN Impression/Report/Plan: #1 Altered mental status #2 Encephalopathy #3 Palliative Care Z51.5 This afternoon, I had the pleasure of meeting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 Covid Care e-consult NOTE: At the time of testing, patients are instructed to obtain the result by calling the [employer] result line or by checking their online services account. Hospital Course - Gerard Andino M.D., M.S. - 11/12/2021 7:16 AM CDT Ms. Catia Carias is a 31 y.o. female who presents with altered mental status and jaundice in the setting of alcoholic cirrhosis (diagnosed 01/2021). PMH is otherwise significant for nicotine dependence, chronic pain syndrome, GERD, chronic pancreatitis, anemia, thrombocytopenia, anxiety, cannabis use, and mood disorder. She follows with Dr. Jerome in the outpatient setting undergoing transplant evaluation. Ms. Carias was discharged from the GI service on 11/11/2021. She had been hospitalized for hepatic encephalopathy due to lactulose noncompliance. Her encephalopathy had improved with lactulose. He had also undergone paracentesis on this admission which had ruled out SBP. Patient was unable to provide history on admission due to altered mental status. After discharge, apparently the patient went home and did not take any lactulose. She had 1 bowel movements throughout the day. She became progressively more confused. She was transferred via EMS to the [facility] Emergency Department. On arrival she was unable to follow commands. She was afebrile, mildly tachycardic, normotensive, and saturating well on room air. Labs were significant for hemoglobin 8.7 (up from 7.4 the day prior), stable thrombocytopenia, stable white blood cell count, INR 3.3, hyponatremia 133, total bilirubin 18(direct 9.4), ALT 18, AST 52 (35 one [...] some remaining behavioral concerns. NG tube and reynolds were removed on 11/24. Patient underwent repeat therapeutic paracentesis for comfort and nausea. Her mentation returned to baseline by 11/26/2021. Her encephalopathy was deemed to be multifactorial secondary to multiple neuro active medications, ciprofloxacin, delirium, and hepatic encephalopathy. The patient was counseled extensively about avoidance of neuro active medications to prevent additional episodes of encephalopathy, such as oxycodone, gabapentin, hydroxyzine, and ropinirole. She was very motivated in avoiding further neuro active medications and wanted to stay with topical pain control strategies. Additionally she verbalized the importance of maintaining her lactulose regimen to prevent future episodes of hepatic encephalopathy. Given concern that ciprofloxacin may have contributed to her encephalopathy, she was switched to daily Bactrim for SBP prophylaxis. documented in this encounter Plan of Treatment Upcoming Encounters Date Type Specialty Care Team Description 01/07/2022 Office Visit Community Internal Medicine Ranjit Red P.A.-C. [address] [place] [phone] (Wo rk) 01/12/2022 Appointment Laboratory Medicine Matthew Jerome M.B.B.S., Lilian [address] [place] [phone] (Wo rk) 01/12/2022 Appointment Laboratory Medicine Adeline Frazier M.D., Ph.D. [address] [place] [phone] (Wo rk) 01/13/2022 Telemedicine Transplant Joel Tan L.I.C.S.W., M.S. W. [address] [place] [phone] (Wo rk) 01/13/2022 Telemedicine Transplant Matthew Jerome M.B.BSumaSSuma, M.Slick. [address] [place] [phone] (Wo rk) 01/13/2022 Telemedicine Transplant Adeline Frazier M.D., Ph.D. [address] [place] [phone] (Wo rk) 01/28/2022 Office Visit Gastroenterology and Matthew Jerome, Hepatology Elizabeth.B.B.S., MCee. [address] [place] [phone] (Wo rk) Scheduled Procedures Name Priority Associated Diagnoses Date/Time ESOPHAGOGASTRODUODENOSCOPY Cirrhosis Alc oholic (HCC) Hypertension Portal (HCC) ESOPHAGOGASTRODUODENOSCOPY Cirrhosis Alc oholic (HCC) Ascites Anemia Macrocytic Thrombocytopenia (HC C) Deficiency Coagulation Acquired (HCC) Scheduled Referrals Name Type Priority Associated Diagnoses Order S [facility] Outpatient Referral Routine Cirrhosis Alcoholic Ordered: Health referral (HCC) 11/26/2021 documented as of this encounter Procedures Procedure Name Priority Date/Time Associated Comments Diagnosis DIPSTICK, U Routine 11/26/2021 6:59 Results for AM CDT this procedure are in the results section. MICROSCOPIC AUTOMATED Routine 11/26/2021 6:59 Res ults for AM CDT this procedure are in the results section. BACTERIAL CULTURE, Routine 11/26/2021 6:59 Result s for AEROBIC + SUSC, URINE AM CDT this p rocedure are in the results section. PH, U Routine 11/26/2021 6:59 Results for AM CDT this procedure are in the results section. OSMOLALITY, U Routine 11/26/2021 6:59 Results for AM CDT this procedure are in the results section. URINALYSIS WITH Routine 11/26/2021 6:59 Results f or MICROSCOPIC AM CDT this procedure are in the results section. CT ABDOMEN PELVIS RAD - Routine 11/25/2021 10:27 Resul ts for WITH IV CONTRAST (most inpatients AM CDT this pr ocedure and all are in the outpatients) results section. CBC WITH Routine 11/25/2021 6:55 Results for DIFFERENTIAL, B AM CDT this procedu re are in the results section. PHOSPHORUS Routine 11/25/2021 6:55 Results for (INORGANIC), S AM CDT this procedur e are in the results section. MAGNESIUM, S Routine 11/25/2021 6:55 Results for AM CDT this procedure are in the results section. BASIC METABOLIC Routine 11/25/2021 6:55 Results f or PANEL, S/P AM CDT this procedure are in the results section. DX ABDOMEN PORTABLE RAD - Semiurgent 11/25/2021 6:06 R esults for ANTERIOR POSTERIOR 1 (Fast; most ED AM CDT this procedure VIEW patients; some are in the inpatients) results section. US PARACENTESIS WITH RAD - Routine 11/24/2021 1:28 Res ults for IMAGING GUIDANCE (most inpatients PM CDT this pr ocedure and all are in the outpatients) results section. CBC WITH Routine 11/24/2021 10:39 Results for DIFFERENTIAL, B AM CDT this procedu re are in the results section. CBC WITHOUT Routine 11/23/2021 6:01 Results for DIFFERENTIAL, B AM CDT this procedu re are in the results section. BASIC METABOLIC Routine 11/23/2021 6:01 Results f or PANEL, S/P AM CDT this procedure are in the results section. HC OSMOLALITY ASSAY Routine 11/21/2021 6:42 Resul ts for URINE PM CDT this procedure are in the results section. DIPSTICK, U Routine 11/21/2021 6:42 Results for PM CDT this procedure are in the results section. PH, RANDOM, U Routine 11/21/2021 6:42 Results for PM CDT this procedure are in the results section. MICROSCOPIC MANUAL Routine 11/21/2021 6:42 Result s for PM CDT this procedure are in the results section. URINALYSIS WITH Routine 11/21/2021 6:42 Results f or MICROSCOPIC PM CDT this procedure are in the results section. BACTERIAL CULTURE, Routine 11/21/2021 6:41 Result s for AEROBIC + SUSC, URINE PM CDT this p rocedure are in the results section. SPSMA RESULT Routine 11/21/2021 11:25 Results for AM CDT this procedure are in the results section. PERNICIOUS ANEMIA Routine 11/21/2021 11:25 Result s for CASCADE, S AM CDT this procedure are in the results section. CYSTATIN C WITH EGFR Routine 11/21/2021 11:25 Res ults for AM CDT this procedure are in the results section. CBC WITH Routine 11/21/2021 11:25 Results for DIFFERENTIAL, B AM CDT this procedu re are in the results section. COMPREHENSIVE Routine 11/21/2021 11:25 Results fo r METABOLIC PANEL, S/P AM CDT this pr ocedure are in the results section. COPPER, 24 HR, U Routine 11/21/2021 11:00 Results for AM CDT this procedure are in the results section. CERULOPLASMIN, S Routine 11/20/2021 6:38 Results for AM CDT this procedure are in the results section. DX ABDOMEN PORTABLE RAD - Routine 11/19/2021 4:44 Resu lts for ANTERIOR POSTERIOR 1 (most inpatients PM CDT thi s procedure VIEW and all are in the outpatients) results section. SEDIMENTATION RATE, B STAT 11/19/2021 2:55 Res ults for PM CDT this procedure are in the results section. CBC WITHOUT STAT 11/19/2021 2:55 Results for DIFFERENTIAL, B PM CDT this procedu re are in the results section. TYPE AND SCREEN STAT 11/19/2021 2:55 Results f or PM CDT this procedure are in the results section. C-REACTIVE PROTEIN STAT 11/19/2021 2:55 Result s for (CRP), S/P PM CDT this procedure are in the results section. BACTERIA / RAUDEL Routine 11/19/2021 12:59 Resul ts for CULTURE, BLOOD PM CDT this procedur e are in the results section. BACTERIA / RAUDEL Routine 11/19/2021 12:45 Resul ts for CULTURE, BLOOD PM CDT this procedur e are in the results section. LACTATE, B/P Timed 11/19/2021 12:45 Results for PM CDT this procedure are in the results section. HEPATIC FUNCTION Routine 11/19/2021 7:13 Results for PANEL, S AM CDT this procedure are in the results section. CBC WITH Routine 11/19/2021 7:13 Results for DIFFERENTIAL, B AM CDT this procedu re are in the results section. PHOSPHORUS Routine 11/19/2021 7:13 Results for (INORGANIC), S AM CDT this procedur e are in the results section. MAGNESIUM, S Routine 11/19/2021 7:13 Results for AM CDT this procedure are in the results section. BASIC METABOLIC Routine 11/19/2021 7:13 Results f or PANEL, S/P AM CDT this procedure are in the results section. US PARACENTESIS WITH RAD - Routine 11/18/2021 4:10 Res ults for IMAGING GUIDANCE (most inpatients PM CDT this pr ocedure and all are in the outpatients) results section. BACTERIAL CULTURE, Routine 11/18/2021 3:29 Result s for AEROBIC + SUSC PM CDT this procedur e are in the results section. CELL COUNT AND Timed 11/18/2021 3:29 Results fo r DIFFERENTIAL, BF PM CDT this proced ure are in the results section. GRAM STAIN Routine 11/18/2021 3:29 Results for PM CDT this procedure are in the results section. CBC WITH Routine 11/18/2021 8:56 Results for DIFFERENTIAL, B AM CDT this procedu re are in the results section. PHOSPHORUS Routine 11/18/2021 8:56 Results for (INORGANIC), S AM CDT this procedur e are in the results section. MAGNESIUM, S Routine 11/18/2021 8:56 Results for AM CDT this procedure are in the results section. COMPREHENSIVE Routine 11/18/2021 8:56 Results for METABOLIC PANEL, S/P AM CDT this pr ocedure are in the results section. VIDEO EEG MONITORING Routine 11/17/2021 10:14 Res ults for AM CDT this procedure are in the results section. VIDEO EEG MONITORING Routine 11/17/2021 10:14 Res ults for AM CDT this procedure are in the results section. DX ABDOMEN PORTABLE RAD - Routine 11/16/2021 9:08 Resu lts for ANTERIOR POSTERIOR 1 (most inpatients PM CDT thi s procedure VIEW and all are in the outpatients) results section. CBC WITH Routine 11/16/2021 7:11 Results for DIFFERENTIAL, B AM CDT this procedu re are in the results section. COMPREHENSIVE Routine 11/16/2021 7:11 Results for METABOLIC PANEL, S/P AM CDT this pr ocedure are in the results section. MR BRAIN WITHOUT IV RAD - Semiurgent 11/15/2021 1:07 R esults for CONTRAST (Fast; most ED PM CDT this procedur e patients; some are in the inpatients) results section. DRUG SCREEN URINE Routine 11/15/2021 11:15 Result s for AM CDT this procedure are in the results section. HEPATIC FUNCTION Routine 11/15/2021 6:14 Results for PANEL, S AM CDT this procedure are in the results section. CBC WITHOUT Routine 11/15/2021 6:14 Results for DIFFERENTIAL, B AM CDT this procedu re are in the results section. PHOSPHORUS Routine 11/15/2021 6:14 Results for (INORGANIC), S AM CDT this procedur e are in the results section. MAGNESIUM, S Routine 11/15/2021 6:14 Results for AM CDT this procedure are in the results section. AMMONIA Routine 11/15/2021 6:14 Results for AM CDT this procedure are in the results section. BASIC METABOLIC Routine 11/15/2021 6:14 Results f or PANEL, S/P AM CDT this procedure are in the results section. POTASSIUM, S/P Timed 11/14/2021 9:00 Results fo r PM CDT this procedure are in the results section. PHOSPHORUS Timed 11/14/2021 9:00 Results for (INORGANIC), S PM CDT this procedur e are in the results section. MAGNESIUM, S Timed 11/14/2021 9:00 Results for PM CDT this procedure are in the results section. HEPATIC FUNCTION Routine 11/14/2021 6:56 Results for PANEL, S AM CDT this procedure are in the results section. CBC WITHOUT Routine 11/14/2021 6:56 Results for DIFFERENTIAL, B AM CDT this procedu re are in the results section. BASIC METABOLIC Routine 11/14/2021 6:56 Results f or PANEL, S/P AM CDT this procedure are in the results section. SARS COV-2, ANTIGEN, Routine 11/13/2021 9:45 Resu lts for RAPID, V AM CDT this procedure are in the results section. HEPATIC FUNCTION Routine 11/13/2021 6:19 Results for PANEL, S AM CDT this procedure are in the results section. CBC WITHOUT Routine 11/13/2021 6:19 Results for DIFFERENTIAL, B AM CDT this procedu re are in the results section. BASIC METABOLIC Routine 11/13/2021 6:19 Results f or PANEL, S/P AM CDT this procedure are in the results section. DX ABDOMEN PORTABLE RAD - Routine 11/12/2021 5:40 Resu lts for ANTERIOR POSTERIOR 1 (most inpatients PM CDT thi s procedure VIEW and all are in the outpatients) results section. CT HEAD WITHOUT IV RAD - Semiurgent 11/12/2021 3:52 Re sults for CONTRAST (Fast; most ED AM CDT this procedur e patients; some are in the inpatients) results section. SARS CORONAVIRUS 2, STAT 11/12/2021 3:44 Resul ts for PCR RAPID, V AM CDT this procedure are in the results section. DRUG SCREEN URINE STAT 11/12/2021 3:19 Results for AM CDT this procedure are in the results section. PLACE PERIPHERAL IV Routine 11/12/2021 1:58 Resul ts for AM CDT this procedure are in the results section. ETHANOL, S STAT 11/12/2021 1:54 Results for AM CDT this procedure are in the results section. HEPATIC FUNCTION STAT 11/12/2021 1:54 Results for PANEL, S AM CDT this procedure are in the results section. BLOOD GAS, POCT, B STAT 11/12/2021 1:54 Result s for AM CDT this procedure are in the results section. LACTATE, POCT, B STAT 11/12/2021 1:54 Results for AM CDT this procedure are in the results section. ACTIVATED PARTIAL STAT 11/12/2021 1:54 Results for THROMBOPLASTIN TIME AM CDT this pro cedure (APTT), P are in the results section. PROTHROMBIN TIME STAT 11/12/2021 1:54 Results for (PT), P AM CDT this procedure are in the results section. CBC WITH STAT 11/12/2021 1:54 Results for DIFFERENTIAL, B AM CDT this procedu re are in the results section. HUMAN CHORIONIC STAT 11/12/2021 1:54 Results f or GONADOTROPIN (HCG), AM CDT this pro cedure EDDI, are in the results section. THYROID-STIMULATING STAT 11/12/2021 1:54 Resul ts for HORMONE-SENSITIVE AM CDT this proce dure (S-TSH) are in the results section. AMMONIA STAT 11/12/2021 1:54 Results for AM CDT this procedure are in the results section. BASIC METABOLIC STAT 11/12/2021 1:54 Results f or PANEL, S/P AM CDT this procedure are in the results section. LACTATE, POCT, B Routine 11/12/2021 1:52 Results for AM CDT this procedure are in the results section. VBG & LYTES CG8+, Routine 11/12/2021 1:51 Results for POCT, B AM CDT this procedure are in the results section. C-REACTIVE PROTEIN Routine 11/11/2021 4:28 Result s for (CRP), S/P AM CDT this procedure are in the results section. documented in this encounter Results (ABNORMAL) Dipstick, Urine (11/26/2021 6:59 AM CDT) [facility] Method Time Signature Hemoglobin, Trace (A) Negative 11/26/2021 DTL QL, U 7:48 AM CDT Leukocyte Negative Negative 11/26/2021 DTL Esterase, U 7:48 AM CDT Nitrite, U Negative Negative 11/26/2021 DTL 7:48 AM CDT Ketone, U Negative Negative 11/26/2021 DTL mg/dL 7:48 AM CDT Glucose, U Negative Negative 11/26/2021 DTL mg/dL 7:48 AM CDT Specimen Anatomical Collection Method Collection Time Receive d Time (Source) Location / / Volume Laterality Urine 11/26/2021 6:59 AM 07/27/202 2 7:15 CDT AM CDT Gerard Andino M.D., M.S. LAB URINE ORDERABLES Performing Organization Address City/[facility]/ZIP Code Phon e Number [facility] - [address] [place], [place] [id number] [place] [address] pH, Urine (11/26/2021 6:59 AM CDT) P athologist Signature pH, U 6.3 4.5 - 8.0 11/26/2021 8:06 DTL AM CDT Specimen Anatomical Collection Method Collection Time Receive d Time (Source) Location / / Volume Laterality Urine 11/26/2021 6:59 AM 2 7:15 CDT AM CDT Gerard Andino M.D., M.S. LAB URINE ORDERABLES Performing Organization Address City/[facility]/ZIP Code Phon e Number [facility] - 200 [place] [address] [address] [facility] [place] [address] Osmolality, Urine (11/26/2021 6:59 AM CDT) P athologist Signature Osmolality, U 325 150 - 1150 11/26/2021 DTL mOsm/kg 8:06 AM CDT Specimen Anatomical Collection Method Collection Time Receive d Time (Source) Location / / Volume Laterality Urine 11/26/2021 6:59 AM 2 7:15 CDT AM CDT Gerard Andino M.D., M.S. LAB URINE ORDERABLES Performing Organization Address City/State/ZIP Code Phon e Number [facility] - 200 [place], [place] [address] [facility] [place], [place] [id number] [place] [address] (ABNORMAL) Microscopic Automated (11/26/2021 6:59 AM CDT) [...] / Volume Laterality Urine 11/26/2021 6:59 AM 7:15 CDT AM CDT Gerard Andino M.D., M.S. LAB URINE ORDERABLES Performing Organization Address [facility] Phon e Number [facility] - [address] [place] [address] Laboratories-[address] Bacterial Culture, Aerobic + Susc, Urine (11/26/2021 6:59 AM CDT) [facility] Method Time Signature Urine Culture No growth 11/27/2021 DT after 1 day 8:35 AM CDT of incubation. Specimen Anatomical Collection Method Collection Time Receive d Time (Source) Location / / Volume Laterality Urine (Urine, 11/26/2021 6:59 AM 11/27/19 22 7:31 Midstream) CDT AM CDT Comment: Specimen Source Site: Urine Gerard Andino M.D., M.S. LAB MICROBIOLOGY - GENERAL O RDERABLES Performing Organization Address [facility] Phon e Number [facility] - [address] [place] [phone] (ABNORMAL) Urinalysis with Microscopic: Urine, Midstream (11/26/2021 6:59 AM CDT) [facility] [employer] - Eye Tracking Method Time Signature Source Urine, Urine, 11/26/2021 DTL Midstream 7:15 AM CDT Color, U Yellow 11/26/2021 DTL 7:15 AM CDT Clarity, U Clear 11/26/2021 DTL 7:15 AM CDT Protein, U 17 <26 mg/dL 11/26/2021 DTL 8:39 AM CDT Protein/Osmol 0.52 (H) <0.42 11/26/2021 DTL ality ratio 8:39 AM CDT Predicted 24 371 mg/24 h 11/26/2021 DTL Hr Protein 8:39 AM CDT Predicted 92-1504 mg/24 h 11/26/2021 DTL Range 8:39 AM CDT Specimen Anatomical Collection Method Collection Time Receive d Time (Source) Location / / Volume Laterality Urine (Urine, 11/26/2021 6:59 AM 11/27/19 7:15 Midstream) CDT AM CDT Gerard Andino M.D., M.S. LAB URINE ORDERABLES Performing Organization Address City/State/ZIP Code Phon e Number [facility] - [address] [place], [place] [address] [facility] [place] [address] Laboratories-[facility] [address] Abdomen Pelvis with IV Contrast (11/25/2021 [...] CT PROCEDURES Phosphorus Inorganic (11/25/2021 6:55 AM CDT) P athologist Signature Phosphorus 3.2 2.5 - 4.5 11/25/2021 DTL (Inorganic), S mg/dL 7:54 AM CDT Specimen Anatomical Collection Method Collection Time Receive d Time (Source) Location / / Volume Laterality Blood (Blood, 11/25/2021 6:55 AM 11/26/19 7:33 Venous) CDT AM CDT Dina Campa M.D. LAB BLOOD ADD-ON Performing Organization Address City/State/ZIP Code Phon e Number [facility] - 200 [place], [place] [address] [place] [address] Laboratories-[address] Magnesium (11/25/2021 6:55 AM CDT) P athologist Signature Magnesium, S 1.7 1.7 - 2.3 11/25/2021 DTL mg/dL 7:54 AM CDT Specimen Anatomical Collection Method Collection Time Receive d Time (Source) Location / / Volume Laterality Blood (Blood, 11/25/2021 6:55 AM 11/26/19 7:33 Venous) CDT AM CDT Dina Campa M.D. LAB BLOOD ADD-ON Performing Organization Address City/[facility] Code Phon e Number [facility] [address] (ABNORMAL) Basic Metabolic Panel (11/25/2021 6:55 AM CDT) Analysis Performed At Patho logist Time Signature Potassium, S 4.0 3.6 - 5.2 11/25/2021 DTL mmol/L 7:54 AM CDT Sodium, S 135 135 - 145 11/25/2021 DTL mmol/L 7:54 AM CDT Chloride, S 103 98 - 107 11/25/2021 DTL mmol/L 7:54 AM CDT Bicarbonate, S 20 (L) 22 - 29 11/25/2021 DTL mmol/L 7:54 AM CDT Anion Gap 12 7 - 15 11/25/2021 DTL 7:54 AM CDT BUN (Blood Urea 8 6 - 21 11/25/2021 DTL Nitrogen), S mg/dL 7:54 AM CDT Creatinine 0.47 (L) 0.59 - 11/25/2021 DTL 1.04 mg/dL 7:54 AM CDT eGFR-Non >90 >=60 11/25/2021 DTL Black/ mL/min/BSA 7:54 AM CDT Israeli Comment: ----ADDITIONAL INFORMATION---- Estimated GFR calculated using the 2009 CKD_EPI creatinine equation. eGFR-Black/ >90 >=60 mL/min/BSA 2021 7:54 AM CDT DTL Comment: ----ADDITIONAL INFORMATION---- Estimated GFR calculated using the 2009 CKD_EPI creatinine equation. Calcium, Total, S 9.1 8.6 - 10.0 mg/dL 11/25/2021 7:54 AM CDT DTL Glucose, S 114 70 - 140 mg/dL 11/25/2021 7:54 AM CDT D TL Specimen Anatomical Collection Method Collection Time Receive d Time (Source) Location / / Volume Laterality Blood (Blood, 11/25/2021 6:55 AM 11/26/19 7:33 Venous) CDT AM CDT Dina Campa M.D. LAB BLOOD ADD-ON Performing Organization Address City/State/ZIP Code Phon e Number [facility] - 200 [place], [place] [address] [facility] [place] [address] Laboratories-[facility] [address] [facility] (ABNORMAL) CBC with Differential, Blood (11/25/2021 6:55 AM CDT) [facility] gist Method Time Signature Hemoglobin 7.5 (L) 11.6 - 11/25/2021 DTL 15.0 g/dL 8:11 AM CDT Hematocrit 22.6 (L) 35.5 - 11/25/2021 DTL 44.9 % 8:11 AM CDT Erythrocytes 1.99 (L) 3.92 - 11/25/2021 DTL 5.13 8:11 AM CDT x10(12)/L MCV 113.6 (H) 78.2 - 11/25/2021 DTL 97.9 fL 8:11 AM CDT RBC Distrib Width 20.5 (H) 12.2 - 11/25/2021 DTL 16.1 % 8:11 AM CDT Platelet Count 51 (L) 157 - 371 11/25/2021 DTL x10(9)/L 8:24 AM CDT Comment: Results confirmed by smear, no clumping or interference seen. Leukocytes 5.2 3.4 - 9.6 x10(9)/L 11/25/2021 8:24 AM C DT DTL Neutrophils 3.23 1.56 - 6.45 x10(9)/L 11/25/2021 8:24 A M CDT DTL Lymphocytes 1.13 0.95 - 3.07 x10(9)/L 11/25/2021 8:24 A M CDT DTL Monocytes 0.72 0.26 - 0.81 x10(9)/L 11/25/2021 8:24 AM CDT DTL Eosinophils 0.12 0.03 - 0.48 x10(9)/L 11/25/2021 8:24 A M CDT DTL Basophils <0.03 0.01 - 0.08 x10(9)/L 11/25/2021 8:24 AM CDT DTL Specimen Anatomical Collection Method Collection Time Receive d Time (Source) Location / / Volume Laterality Blood (Blood, 11/25/2021 6:55 AM 11/26/19 7:18 Venous) CDT AM CDT Dina Campa M.D. LAB BLOOD ADD-ON Performing Organization Address City/State/ZIP Code Phon e Number [facility] - [address] [place], [place] [address] [facility] [place] [address] Laboratories-[facility] [address] DX Abdomen Portable Anterior Posterior 1 View (11/25/2021 6:06 AM CDT) Anatomical Region Laterality Modality Abdomen, Abdominal RST [...] radiographs. IUD. Harish PERALES DIAGNOSTIC IMAGING PROCE PERCY US Paracentesis with Imaging Guidance (11/24/2021 1:28 PM CDT) Anatomical Region Laterality Modality Abdomen, [...] Campa M.D. IMG US PROCEDURES (ABNORMAL) CBC with Differential, Blood (11/24/2021 10:39 AM CDT) [facility] Method Time Signature Hemoglobin 8.4 (L) 11.6 - 11/24/2021 DTL 15.0 g/dL 12:07 PM CDT Hematocrit 25.4 (L) 35.5 - 11/24/2021 DTL 44.9 % 2:09 PM CDT Erythrocytes 2.23 (L) 3.92 - 11/24/2021 DTL 5.13 2:09 PM CDT x10(12)/L MCV 113.9 (H) 78.2 - 11/24/2021 DTL 97.9 fL 2:09 PM CDT RBC Distrib Width 21.7 (H) 12.2 - 11/24/2021 DTL 16.1 % 12:07 PM CDT Platelet Count 54 (L) 157 - 371 11/24/2021 DTL x10(9)/L 2:09 PM CDT Leukocytes 6.6 3.4 - 9.6 11/24/2021 DTL x10(9)/L 2:09 PM CDT Neutrophils 4.78 1.56 - 11/24/2021 DTL 6.45 2:09 PM CDT x10(9)/L Lymphocytes 0.92 (L) 0.95 - 11/24/2021 DTL 3.07 2:09 PM CDT x10(9)/L Monocytes 0.76 0.26 - 11/24/2021 DTL 0.81 2:09 PM CDT x10(9)/L Eosinophils 0.09 0.03 - 11/24/2021 DTL 0.48 2:09 PM CDT x10(9)/L Basophils <0.03 0.01 - 11/24/2021 DTL 0.08 2:09 PM CDT x10(9)/L Specimen Anatomical Collection Method Collection Time Receive d Time (Source) Location / / Volume Laterality Blood (Blood, 11/24/2021 10:39 11/24/2021 Venous) AM CDT 11:35 AM CDT Dnia Campa M.D. LAB BLOOD ADD-ON Performing Organization Address City/State/ZIP Code Phon e Number [facility] - [address] [place] [address] [facility] [place] [address] [facility] [address] [facility] (ABNORMAL) Basic Metabolic Panel (11/23/2021 6:01 AM CDT) Analysis Performed At Patho logist Time Signature Potassium, S 3.9 3.6 - 5.2 11/23/2021 DTL mmol/L 8:24 AM CDT Sodium, S 135 135 - 145 11/23/2021 DTL mmol/L 8:24 AM CDT Chloride, S 105 98 - 107 11/23/2021 DTL mmol/L 8:24 AM CDT Bicarbonate, S 20 (L) 22 - 29 11/23/2021 DTL mmol/L 8:24 AM CDT Anion Gap 10 7 - 15 11/23/2021 DTL 8:24 AM CDT BUN (Blood Urea 11 6 - 21 11/23/2021 DTL Nitrogen), S mg/dL 8:24 AM CDT Creatinine 0.42 (L) 0.59 - 11/23/2021 DTL 1.04 mg/dL 8:52 AM CDT eGFR-Non >90 >=60 11/23/2021 DTL Black/ mL/min/BSA 8:52 AM CDT Israeli Comment: ----ADDITIONAL INFORMATION---- Estimated GFR calculated using the 2009 CKD_EPI creatinine equation. eGFR-Black/ >90 >=60 mL/min/BSA 2021 8:52 AM CDT DTL Comment: ----ADDITIONAL INFORMATION---- Estimated GFR calculated using the 2009 CKD_EPI creatinine equation. Calcium, Total, S 8.3 (L) 8.6 - 10.0 mg/dL 11/23/2021 8:24 AM CDT DTL Glucose, S 97 70 - 140 mg/dL 11/23/2021 8:24 AM CDT D TL Specimen Anatomical Collection Method Collection Time Receive d Time (Source) Location / / Volume Laterality Blood (Blood, 11/23/2021 6:01 AM 11/24/19 22 7:43 Venous) CDT AM CDT Gerard Andino M.D., M.S. LAB BLOOD ADD-ON Performing Organization Address City/State/ZIP Code Phon e Number [facility] - [address] [place] [address] [facility] [place] [address] [facility] [address] [facility] (ABNORMAL) CBC without Differential (11/23/2021 6:01 AM CDT) [facility] gist Method Time Signature Hemoglobin 7.3 (L) [...] Count 52 (L) 157 - 371 11/23/2021 [facility] x10(9)/L 8:56 AM CDT Leukocytes 7.3 3.4 - 9.6 11/23/2021 [facility] x10(9)/L 8:56 AM CDT Specimen Anatomical Collection Method Collection Time Receive d Time (Source) Location / / Volume Laterality Blood (Blood, 11/23/2021 6:01 AM 11/24/19 7:32 Venous) CDT AM CDT Gerard Andino M.D., M.S. LAB BLOOD ADD-ON Performing Organization Address City/[facility]/ZIP [facility] Phon e Number [facility] - [address] [place] [address] 05 [place] [address] Laboratories-[address] (ABNORMAL) Dipstick, Urine (11/21/2021 6:42 PM CDT) Patholo gist Method Time Signature Hemoglobin, Large (A) Negative 11/21/2021 DTL QL, U 7:22 PM CDT Leukocyte Trace (A) Negative 11/21/2021 DTL Esterase, U 7:22 PM CDT Nitrite, U Negative Negative 11/21/2021 DTL 7:22 PM CDT Ketone, U Negative Negative 11/21/2021 DTL mg/dL 7:22 PM CDT Glucose, U Negative Negative 11/21/2021 DTL mg/dL 7:22 PM CDT Specimen Anatomical Collection Method Collection Time Receive d Time (Source) Location / / Volume Laterality Urine 11/21/2021 6:42 PM 7:03 CDT PM CDT Jovanna Bergeron M.D. LAB URINE ORDERABLES Performing Organization Address City/[facility]/ZIP [facility] Phon e Number [facility] - [address] [place] [address] [facility] [place] [address] Laboratories[address] Osmolality, Urine (11/21/2021 6:42 PM CDT) P athologist Signature Osmolality, U 433 150 - 1150 11/21/2021 DTL mOsm/kg 7:58 PM CDT Specimen Anatomical Collection Method Collection Time Receive d Time (Source) Location / / Volume Laterality Urine 11/21/2021 6:42 PM 2 7:03 CDT PM CDT Jovanna Bergeron M.D. LAB URINE ORDERABLES Performing Organization Address [facility] Phon e Number [facility] - [address] [place], [place] [address] [facility] [place] [address] [address] pH, Random, Urine (11/21/2021 6:42 PM CDT) P athologist Signature pH, Random, U 6.5 4.5 - 8.0 11/21/2021 DTL 7:58 PM CDT Specimen Anatomical Collection Method Collection Time Receive d Time (Source) Location / / Volume Laterality Urine 11/21/2021 6:42 PM 2 7:03 CDT PM CDT Jovanna Bergeron M.D. LAB URINE ORDERABLES Performing Organization Address City/[facility] Code Phon e Number [facility] - [address] [place], [place] [address] [place] [address] [address] (ABNORMAL) Microscopic Manual (11/21/2021 6:42 PM CDT) Analysis Performed At Patho logist Time Signature Microscopy Abnormal 11/21/2021 DTL 8:01 PM CDT RBC >100 (A) <3 /hpf 11/21/2021 DTL 8:01 PM CDT Dysmorphic RBC <25 <25 % 11/21/2021 DTL 8:01 PM CDT WBC 4-10 /hpf 11/21/2021 DTL 8:01 PM CDT Comment: ----REFERENCE VALUE---- 1-3 ??(Males) 1-10 (Females) Casts, Hyaline 4-10 /lpf 11/21/2021 8:01 PM CDT DT L Squamous Epithelial Cells, U 1-3 /hpf 11/21/2021 8:01 PM CDT DTL Specimen Anatomical Collection Method Collection Time Receive d Time (Source) Location / / Volume Laterality Urine 11/21/2021 6:42 PM 7:03 CDT PM CDT Jovanna Bergeron M.D. LAB URINE ORDERABLES Performing Organization Address [facility] Phon e Number [facility] - [address] [place], [place] [address] [place] [address] [place] [address] [address] (ABNORMAL) Urinalysis with Microscopic: Urine, Catheter (11/21/2021 6:42 PM CDT) [facility] Method Time Signature Source Urine, 11/21/2021 DTL Urine, 7:03 PM CDT Catheter Color, U Priscilla (A) 11/21/2021 DTL 7:03 PM CDT Clarity, U Clear 11/21/2021 DTL 7:03 PM CDT Protein, U 78 (H) <26 mg/dL 11/21/2021 DTL 8:17 PM CDT Protein/Osmola 1.80 (H) <0.42 11/21/2021 DTL lity ratio 8:17 PM CDT Predicted 24 1142 mg/24 h 11/21/2021 DTL Hr Protein 8:17 PM CDT Predicted 282-4622 mg/24 h 11/21/2021 DTL Range 8:17 PM CDT Specimen Anatomical Collection Method Collection Time Receive d Time (Source) Location / / Volume Laterality Urine (Urine, 11/21/2021 6:42 PM 11/22/19 7:03 Catheter) CDT PM CDT Jovanna Bergeron M.D. LAB URINE ORDERABLES Performing Organization Address City/[facility] Phon e Number [facility] - [address] [place], [place] [address] [facility] [place] [address] [address] Bacterial Culture, Aerobic + Susc, Urine (11/21/2021 6:41 PM CDT) [employer] Method Time Signature Urine Culture No growth 11/23/2021 DT after 1 day 6:50 AM CDT of incubation. Specimen (Source) Anatomical Collection Method Collection Time Re ceived Time Location / / Volume Laterality Urine (Urine, 11/21/2021 6:41 11/21/2021 9:34 Indwelling PM CDT PM CDT Catheter) Comment: Specimen Source Site: Urine Jovanna Bergeron M.D. LAB MICROBIOLOGY - GENERAL O RDERABLES Performing Organization Address City/[facility] Phon e Number [facility] - [address] [place], [place] [address] [facility] [place] [address] [address] (ABNORMAL) SPSMA Result (11/21/2021 11:25 AM CDT) Analysis Performed At Patho logist Time Signature Neutrophilic Segs 84 (H) 50 - 75 % 11/21/2021 DHPM and Bands 1:07 PM CDT Lymphocytes 11 (L) 18 - 42 % 11/21/2021 DHPM 1:07 PM CDT Monocytes 5 2 - 11 % 11/21/2021 DHPM 1:07 PM CDT Manual Absolute 6.30 1.56 - 11/21/2021 DHPM Neutrophil Count 6.45 1:07 PM CDT x10(9)/L [...] liver disease or drug effect. Reviewed by: Ruth 11/21/2021 1:07 PM CDT [facility] Specimen Anatomical Collection Method Collection Time Receive d Time (Source) Location / / Volume Laterality Blood (Blood, 11/21/2021 11:25 11/21/2021 Venous) AM CDT 12:03 PM CDT Shannan Rand M.D. LAB BLOOD ADD-ON Performing Organization Address City/[facility]/ZIP Code Phon e Number [facility] - [address] [place], [place] [address] [place] [address] Laboratories-[address] Pernicious Anemia [place] (11/21/2021 11:25 AM CDT) athologist Signature Vitamin B12 621 180 - 914 11/21/2021 SDSC Assay, S ng/L 6:21 PM CDT Specimen Anatomical Collection Method Collection Time Receive d Time (Source) Location / / Volume Laterality Blood (Blood, 11/21/2021 11:25 11/21/2021 4:05 Venous) AM CDT PM CDT Dina Campa M.D. LAB BLOOD NON ADD-ON Performing Organization Address City/[facility]/ZIP Code Phon e Number [facility] [address] [place], [place] [address] [facility] [place] [address] Laboratory Medicine and Pathology [address] [...] Organization Address City/State/ZIP Code Phon e Number [facility] - [address] [place], [place] [address] [facility] [place] [address] [facility] [address] (ABNORMAL) Comprehensive Metabolic Panel (11/21/2021 11:25 AM CDT) Analysis Performed At Patho logist [...] 11/21/2021 DTL Black/ mL/min/BSA 2:53 PM CDT Israeli Comment: ----ADDITIONAL INFORMATION---- Estimated GFR calculated using [...] M.D. LAB BLOOD ADD-ON Performing Organization Address City/[facility]/ZIP Code Phon e Number [facility] - [address] [place], [place] [address] [facility] [place] [address] [facility] [address] [facility] (ABNORMAL) CBC with Differential, Blood (11/21/2021 11:25 AM CDT) [facility] Method Time Signature Hemoglobin 8.4 (L) 11.6 - 11/21/2021 DTL 15.0 g/dL 12:12 PM CDT Hematocrit 25.9 (L) 35.5 - 11/21/2021 DTL 44.9 % 1:07 PM CDT Erythrocytes 2.35 (L) 3.92 - 11/21/2021 DTL 5.13 1:07 PM CDT x10(12)/L MCV 110.2 (H) 78.2 - 11/21/2021 DTL 97.9 fL 1:07 PM CDT RBC Distrib 21.8 (H) 12.2 - 11/21/2021 DTL Width 16.1 % 12:12 PM CDT Platelet Count 53 (L) 157 - 371 11/21/2021 DTL x10(9)/L 1:07 PM CDT Leukocytes 7.5 3.4 - 9.6 11/21/2021 DTL x10(9)/L 1:07 PM CDT Neutrophils SeeComment 1.56 - 11/21/2021 DTL 6.45 1:07 PM CDT x10(9)/L Comment: Auto-diff results not valid. Se e manual differential. Specimen Anatomical Collection Method Collection Time Receive d Time (Source) Location / / Volume Laterality Blood (Blood, 11/21/2021 11:25 11/21/2021 Venous) AM CDT 12:03 PM CDT Dina Campa M.D. LAB BLOOD ADD-ON Performing Organization Address City/State/ZIP Code Phon e Number [facility] - [address] [place], [place] [address] [place] [address] [facility] [address] [place], 24 Hour, Urine (11/21/2021 11:00 AM CDT) athologist Signature [place], 24 Hr, U 19 9 - 71 11/24/2021 SDSC mcg/24 h 10:42 AM CDT Collection 24 h 11/24/2021 SDSC Duration 10:42 AM CDT Volume 815 mL 11/24/2021 [facility] 10[facility]42 AM CDT Comment: ----ADDITIONAL INFORMATION---- This test was developed and its performa nce characteristics determined by [facility] in a manner consistent with CLIA requirements. This test has not been cleared or approved by the [place] and Drug Administration. Specimen Anatomical Collection Method Collection Time Receive d Time (Source) Location / / Volume Laterality Urine (Urine, 24 11/21/2021 11:00 022 3:36 Hours) AM CDT PM CDT Shannan Rand M.D. LAB URINE ORDERABLES Performing Organization Address City/[facility]/ZIP Code Phon e Number [facility] [address] [place], [place] [address] [facility] [place] [address] Laboratory Medicine and Pathology [address] [...] at or the on-line test catalog at [employer] for m ore information. Specimen Anatomical Collection Method Collection Time Receive d Time (Source) Location / / Volume Laterality Blood (Blood, 11/20/2021 6:38 AM 11/21/19 8:33 Venous) CDT AM CDT Gerard Andino M.D., M.S. LAB BLOOD ADD-ON Performing Organization Address City/State/ZIP Code Phon e Number [facility] - [address] [place], [place] [address] [facility] [place] [address] [facility] [address] DX Abdomen Portable Anterior Posterior 1 View (11/19/2021 4:44 PM CDT) Anatomical Region Laterality Modality Abdomen, Abdominal RST LOS, Abdominal ARZ LOS, N/A Digital Radiography Abdominal FLA LOS Specimen (Source) Anatomical Collection Method Collection Time Re ceived Time Location / / Volume Laterality 11/19/2021 5:05 PM CDT Impressions 11/19/2021 5:06 PM CDT Feeding tube tip is in the stomach. Narrative 11/19/2021 5:06 PM CDT EXAM: ??DX ABDOMEN PORTABLE ANTERIOR POSTERIOR 1 VIEW Procedure Note Migue Lawson M.D. - 11/19/2021For matting of this note might be different from the original. EXAM: DX ABDOMEN PORTABLE ANTERIOR POSTE RIOR 1 VIEW IMPRESSION: Feeding tube tip is in the stomach. Gerard Andino M.D., M.S. IMG DIAGNOSTIC IMAGING PROCE DURES Type and Screen (with reflex Antibody ID) (11/19/2021 2:55 PM CDT) [facility] Method Time Signature ABORh B Pos Not 11/19/2021 STRM applicable 3:49 PM CDT Antibody Negative Negative 11/19/2021 STRM Screen 4:03 PM CDT Type & Screen 11/22/2021 11/19/2021 STRM Expiration 23:59 3:49 PM CDT Testing [place] DEFAULT 11/19/2021 STRM Location 3:05 PM CDT Specimen Anatomical Collection Method Collection Time Receive d Time (Source) Location / / Volume Laterality Blood (Blood, 11/19/2021 2:55 PM 11/20/19 22 3:05 Venous) CDT PM CDT Gerard Andino M.D., M.S. LAB BLOOD BANK TEST ORDERABL ES Performing Organization Address City/[facility]/ZIP [facility] Phon e Number [facility] - [address] [place], [place] [address] [facility] [place] [place] [address] [facility] [address] Sedimentation Rate (11/19/2021 2:55 PM CDT) Analysis Performed At Patho logist Time Signature Sedimentation 2 2 - 20 11/19/2021 DTL Rate, B mm/h 4:02 PM CDT Specimen Anatomical Collection Method Collection Time Receive d Time (Source) Location / / Volume Laterality Blood (Blood, 11/19/2021 2:55 PM 11/20/19 22 3:17 Venous) CDT PM CDT Gerard Andino M.D., M.S. LAB BLOOD ADD-ON Performing Organization Address City/State/ZIP Code Phon e Number [facility] - [address] [place], [place] [address] [facility] [place] [address] [facility] [address] CRP (C-Reactive Protein) (11/19/2021 2:55 PM CDT) P athologist Signature C-Reactive 6.6 <=8.0 mg/L 11/19/2021 DTL Protein (CRP), 3:54 PM CDT S Specimen Anatomical Collection Method Collection Time Receive d Time (Source) Location / / Volume Laterality Blood (Blood, 11/19/2021 2:55 PM 11/20/19 22 3:29 Venous) CDT PM CDT Gerard Andino M.D., M.S. LAB BLOOD ADD-ON Performing Organization Address City/State/ZIP Code Phon e Number [facility] - [address] [place], [place] [address] [facility] [place] [address] [facility] [address] (ABNORMAL) CBC without Differential (11/19/2021 2:55 PM CDT) Patholo gist Method Time Signature Hemoglobin 8.7 (L) 11.6 - 11/19/2021 STMA 15.0 g/dL 3:04 PM CDT Hematocrit 26.3 (L) 35.5 - 11/19/2021 STMA 44.9 % 3:04 PM CDT Erythrocytes 2.33 (L) 3.92 - 11/19/2021 STMA 5.13 3:04 PM CDT x10(12)/L MCV 112.9 (H) 78.2 - 11/19/2021 STMA 97.9 fL 3:04 PM CDT RBC Distrib Width 21.9 (H) 12.2 - 11/19/2021 STMA 16.1 % 3:04 PM CDT Platelet Count 48 (L) 157 - 371 11/19/2021 STMA x10(9)/L 3:04 PM CDT Leukocytes 7.1 3.4 - 9.6 11/19/2021 STMA x10(9)/L 3:04 PM CDT Specimen Anatomical Collection Method Collection Time Receive d Time (Source) Location / / Volume Laterality Blood (Blood, 11/19/2021 2:55 PM 11/20/19 3:02 Venous) CDT PM CDT Gerard Andino M.D., M.S. LAB BLOOD ADD-ON Performing Organization Address City/[facility] Phon e Number [address] [address] [place] [address] Laboratories[address] Bacteria / Raudel Culture, Blood #2 (11/19/2021 12:59 PM CDT) [facility] Method Time Signature Bacteria/Adriana No growth 11/24/2021 DTL da Culture, after 5 2:02 PM CDT Blood days of incubation. Specimen (Source) Anatomical Collection Method Collection Time Re ceived Time Location / / Volume Laterality Blood (Blood, 11/19/2021 12:59 11/19/2021 1:49 Peripheral Draw) PM CDT PM CDT Comment: Specimen Source Site: Blood Jovanna Bergeron M.D. LAB MICROBIOLOGY - GENERAL O RDERABLES Performing Organization Address City/[facility]/ZIP Code Phon e Number [facility] - [address] [place], [place] [address] [place] [address] Lactate, 3 hour draw (11/19/2021 12:45 PM CDT) athologist Signature Lactate, P 1.3 0.5 - 2.2 11/19/2021 DTL mmol/L 2:16 PM CDT Specimen Anatomical Collection Method Collection Time Receive d Time (Source) Location / / Volume Laterality Blood (Blood, 11/19/2021 12:45 11/19/2021 1:46 Venous) PM CDT PM CDT Jovanna Bergeron M.D. LAB BLOOD NON ADD-ON Performing Organization Address City/[facility] Phon e Number [facility] - [address] [place] [id number] [place] [address] Bacteria / Raudel Culture, Blood #1 (11/19/2021 12:45 PM CDT) [facility] Method Time Signature Bacteria/Adriana No growth 11/24/2021 DTL da Culture, after 5 2:02 PM CDT Blood days of incubation. Specimen (Source) Anatomical Collection Method Collection Time Re ceived Time Location / / Volume Laterality Blood (Blood, 11/19/2021 12:45 11/19/2021 1:49 Peripheral Draw) PM CDT PM CDT Comment: Specimen Source Site: Blood Jovanna Bergeron M.D. LAB MICROBIOLOGY - GENERAL O RDERABLES Performing Organization Address City/[facility]/ZIP [facility] Phon e Number [facility] - [address] [place] [address] [place] [address] Phosphorus Inorganic (11/19/2021 7:13 AM CDT) P athologist Signature Phosphorus 2.9 2.5 - 4.5 11/19/2021 DTL (Inorganic), S mg/dL 8:33 AM CDT Specimen Anatomical Collection Method Collection Time Receive d Time (Source) Location / / Volume Laterality Blood (Blood, 11/19/2021 7:13 AM 11/20/19 8:09 Venous) CDT AM CDT Gerard Andino M.D., M.S. LAB BLOOD ADD-ON Performing Organization Address City/State/[facility] Code Phon e Number [facility] - [address] [place] [address] Laboratories[address] Magnesium (11/19/2021 7:13 AM CDT) P athologist Signature Magnesium, S 1.8 1.7 - 2.3 11/19/2021 DTL mg/dL 8:33 AM CDT Specimen Anatomical Collection Method Collection Time Receive d Time (Source) Location / / Volume Laterality Blood (Blood, 11/19/2021 7:13 AM 11/20/19 8:09 Venous) CDT AM CDT Gerard Andino M.D., M.S. LAB BLOOD ADD-ON Performing Organization Address City/[facility] Phon e Number [facility] - [address] (ABNORMAL) Hepatic Function Panel (11/19/2021 7:13 AM CDT) Patholo gist Method Time Signature Bilirubin, Total, S 13.5 (H) <=1.2 11/19/2021 DTL mg/dL 8:36 AM CDT Bilirubin, Direct, S 5.6 (H) 0.0 - 0.3 11/19/2021 DTL mg/dL 8:36 AM CDT Aspartate 48 (H) 8 - 43 11/19/2021 DTL Aminotransferase U/L 8:36 AM CDT (AST), S Alanine 24 7 - 45 11/19/2021 DTL Aminotransferase U/L 8:36 AM CDT (ALT), S Alkaline 138 (H) 35 - 104 11/19/2021 DTL Phosphatase, S U/L 8:36 AM CDT Albumin, S 3.2 (L) 3.5 - 5.0 11/19/2021 DTL g/dL 8:36 AM CDT Protein, Total, S 4.8 (L) 6.3 - 7.9 11/19/2021 DTL g/dL 8:36 AM CDT Specimen Anatomical Collection Method Collection Time Receive d Time (Source) Location / / Volume Laterality Blood (Blood, 11/19/2021 7:13 AM 11/20/19 8:08 Venous) CDT AM CDT Gerard Andino M.D., M.S. LAB BLOOD ADD-ON Performing Organization Address City/State/ZIP Code Phon e Number [facility] - [address] [place], [place] [address] [facility] [place] [address] [facility] [address] [facility] (ABNORMAL) Basic Metabolic Panel (11/19/2021 7:13 AM CDT) Analysis Performed At Patho logist Time Signature Potassium, S 3.7 3.6 - 5.2 11/19/2021 DTL mmol/L 8:36 AM CDT Sodium, S 145 135 - 145 11/19/2021 DTL mmol/L 8:36 AM CDT Chloride, S 115 (H) 98 - 107 11/19/2021 DTL mmol/L 8:36 AM CDT Bicarbonate, S 20 (L) 22 - 29 11/19/2021 DTL mmol/L 8:36 AM CDT Anion Gap 10 7 - 15 11/19/2021 DTL 8:36 AM CDT BUN (Blood Urea 12 6 - 21 11/19/2021 DTL Nitrogen), S mg/dL 8:36 AM CDT Creatinine 0.41 (L) 0.59 - 11/19/2021 DTL 1.04 mg/dL 9:20 AM CDT eGFR-Non >90 >=60 11/19/2021 DTL Black/ mL/min/BSA 9:20 AM CDT Israeli Comment: ----ADDITIONAL INFORMATION---- Estimated GFR calculated using the 2009 CKD_EPI creatinine equation. eGFR-Black/ >90 >=60 mL/min/BSA 2021 9:20 AM CDT DTL Comment: ----ADDITIONAL INFORMATION---- Estimated GFR calculated using the 2009 CKD_EPI creatinine equation. Calcium, Total, S 8.9 8.6 - 10.0 mg/dL 11/19/2021 8:36 AM CDT DTL Glucose, S 97 70 - 140 mg/dL 11/19/2021 8:36 AM CDT D TL Specimen Anatomical Collection Method Collection Time Receive d Time (Source) Location / / Volume Laterality Blood (Blood, 11/19/2021 7:13 AM 11/20/19 8:08 Venous) CDT AM CDT Gerard Andino M.D., M.S. LAB BLOOD ADD-ON Performing Organization Address City/State/ZIP Code Phon e Number [facility] - [address] [place], [place] [address] [facility] [place] [address] [facility] [address] [facility] (ABNORMAL) CBC with Differential, Blood (11/19/2021 7:13 AM CDT) [facility] Method Time Signature Hemoglobin 7.6 (L) 11.6 - 11/19/2021 DTL 15.0 g/dL 8:00 AM CDT Hematocrit 23.3 (L) 35.5 - 11/19/2021 DTL 44.9 % 8:54 AM CDT Erythrocytes 2.09 (L) 3.92 - 11/19/2021 DTL 5.13 8:54 AM CDT x10(12)/L MCV 111.5 (H) 78.2 - 11/19/2021 DTL 97.9 fL 8:54 AM CDT RBC Distrib Width 20.9 (H) 12.2 - 11/19/2021 DTL 16.1 % 8:00 AM CDT Platelet Count 46 (L) 157 - 371 11/19/2021 DTL x10(9)/L 8:43 AM CDT Leukocytes 5.3 3.4 - 9.6 11/19/2021 DTL x10(9)/L 8:54 AM CDT Neutrophils 3.42 1.56 - 11/19/2021 DTL 6.45 8:54 AM CDT x10(9)/L Lymphocytes 1.21 0.95 - 11/19/2021 DTL 3.07 8:54 AM CDT x10(9)/L Monocytes 0.60 0.26 - 11/19/2021 DTL 0.81 8:54 AM CDT x10(9)/L Eosinophils 0.05 0.03 - 11/19/2021 DTL 0.48 8:54 AM CDT x10(9)/L Basophils <0.03 0.01 - 11/19/2021 DTL 0.08 8:54 AM CDT x10(9)/L Specimen Anatomical Collection Method Collection Time Receive d Time (Source) Location / / Volume Laterality Blood (Blood, 11/19/2021 7:13 AM 11/20/19 7:41 Venous) CDT AM CDT Gerard Andino M.D., M.S. LAB BLOOD ADD-ON Performing Organization Address City/State/ZIP Code Phon e Number [facility] - [address] [place] [address] [address] [facility] [place] [address] [facility] [address] [place] Paracentesis with Imaging Guidance (11/18/2021 4:10 PM CDT) Anatomical Region Laterality Modality Abdomen, Ultrasound RST LOS, Ultrasound ARZ LOS, Procedure F LA N/A Ultrasound LOS, Abdominal FLA LOS, Procedural Specimen (Source) Anatomical Collection Method Collection Time Re ceived Time Location / / Volume Laterality 11/18/2021 3:45 PM CDT Impressions 11/18/2021 4:43 PM CDT Ultrasound-guided paracentesis. CP Narrative 11/18/2021 4:43 PM CDT EXAM: US PARACENTESIS WITH IMAGING [...] Sterile. 1% lidocaine for loc al anesthesia. Location: Right lower quadrant peritonea l space. Needle size: 5 Fr centesis catheter. Volume aspirated: 3012 cc of clear yello w fluid, a portion of which was sent for analysis. Complication: None. Blood loss: None. Purpose: Diagnostic and therapeutic. PATIENT INSTRUCTIONS: Patient may be dis missed from the radiology department when dismissal criteria met. POST-PROCEDURE DIAGNOSIS: Ascites. Procedure Note Rex Jenkins M.D. - 11/18/2021 EXAM: US PARACENTESIS WITH IMAGING KYLER JACKSON [...] Sterile. 1% lidocaine for loc al anesthesia. Location: Right lower quadrant peritonea l space. Needle size: 5 Fr centesis catheter. Volume aspirated: 3012 cc of clear yello w fluid, a portion of which was sent for analysis. Complication: None. Blood loss: None. Purpose: Diagnostic and therapeutic. PATIENT INSTRUCTIONS: Patient may be dis missed from the radiology department when dismissal criteria met. POST-PROCEDURE DIAGNOSIS: Ascites. IMPRESSION: Ultrasound-guided paracentesis. CP Gerard Andino M.D., M.S. IMG US PROCEDURES Gram Stain (11/18/2021 3:29 PM CDT) Patholo gist Method Time Signature Gram Stain No organisms seen. 11/18/2021 DTL White blood cells present. 10:50 PM CDT Specimen (Source) Anatomical Collection Method Collection Time Re ceived Time Location / / Volume Laterality Peritoneal Fluid 11/18/2021 3:29 11/19/19 22 5:38 PM CDT PM CDT Narrative [facility] - 11/18/2021 10:50 PM CDT Bacterial Culture: Received Bactec aerob ic and Bactec anaerobic bottles Gerard Andino M.D., M.S. LAB MICROBIOLOGY - GENERAL O RDGRACE Performing Organization Address [facility] Phon e Number [facility] - [address] [place], [place] [address] [place] [address] [address] Bacterial Culture, Aerobic + Susc (11/18/2021 3:29 PM CDT) [facility] Method Time Signature Bacterial No growth 11/23/2021 DTL Culture, after 5 7:47 AM CDT Aerobic + Susc days of incubation. Specimen (Source) Anatomical Collection Method Collection Time Re ceived Time Location / / Volume Laterality Peritoneal Fluid 11/18/2021 3:29 11/19/19 5:38 PM CDT PM CDT Narrative [facility] - [facility] - 11/23/2021 7:47 AM CDT Bacterial Culture: Received Bactec aerob ic and Bactec anaerobic bottles Gerard Andino M.D., M.S. LAB MICROBIOLOGY - GENERAL O JOSE Performing Organization Address [facility] Phon e Number [facility] - [address] [address] [address] Cell Count and Differential, Body Fluid (11/18/2021 3:29 PM CDT) [facility] Method Time Signature Fluid Type Peritoneal- 11/18/2021 DHPM Paracentesi 8:18 PM CDT s Gross Serous 11/18/2021 DHPM Appearance 8:18 PM CDT Total Nucleated <52 /mcL 11/18/2021 DHPM Cells 8:18 PM CDT Comment: ----REFERENCE VALUE---- Synovial: <150 /mcL Peritoneal: <500 /mcL Pleural: <500 /mcL Pericardial: <500 /mcL ----ADDITIONAL INFORMATION---- This test has been modified from the man ufsusir's instructions. Its performance characteri stics were determined by [facility] in a manner co nsistent with CLIA [...] Comment No blasts or 11/19/2021 8:23 AM DH malignant cells CDT seen. Reviewed by: Ruth 11/19/2021 8:23 AM PM CDT Specimen Anatomical Collection Method Collection Time Receive d Time (Source) Location / / Volume Laterality Fluid 11/18/2021 3:29 PM 4:30 (Peritoneal CDT PM CDT Fluid) Gerard Andino M.D., M.S. LAB BODY FLUIDS AND STOOLS O RDERABLES Performing Organization Address City/[facility] Phon e Number [facility] - [address] [place] [address] Phosphorus Inorganic (11/18/2021 8:56 AM CDT) athologist Signature Phosphorus 2.7 2.5 - 4.5 11/18/2021 DTL (Inorganic), S mg/dL 10:11 AM CDT Specimen Anatomical Collection Method Collection Time Receive d Time (Source) Location / / Volume Laterality Blood (Blood, 11/18/2021 8:56 AM 11/19/19 9:52 Venous) CDT AM CDT Shannan Rand M.D. LAB BLOOD ADD-ON Performing Organization Address City/[facility]/ZIP Code Phon e Number [facility] - [address] [place] [address] [address] [facility] [place] [address] [facility] Magnesium (11/18/2021 8:56 AM CDT) P athologist Signature Magnesium, S 2.1 1.7 - 2.3 11/18/2021 DTL mg/dL 10:11 AM CDT Specimen Anatomical Collection Method Collection Time Receive d Time (Source) Location / / Volume Laterality Blood (Blood, 11/18/2021 8:56 AM 11/19/19 22 9:52 Venous) CDT AM CDT Shannan Rand M.D. LAB BLOOD ADD-ON Performing Organization Address City/State/ZIP Code Phon e Number [facility] - [address] [place], [place] [address] [facility] [place] [address] [facility] [address] (ABNORMAL) Comprehensive Metabolic Panel (11/18/2021 8:56 AM CDT) Analysis Performed At Patho logist Time Signature Potassium, S 3.8 3.6 - 5.2 11/18/2021 DTL mmol/L 11:18 AM CDT Sodium, S 146 (H) 135 - 145 11/18/2021 DTL mmol/L 11:18 AM CDT Chloride, S 112 (H) 98 - 107 11/18/2021 DTL mmol/L 11:18 AM CDT Bicarbonate, S 19 (L) 22 - 29 11/18/2021 DTL mmol/L 11:18 AM CDT Anion Gap 15 7 - 15 11/18/2021 DTL 11:18 AM CDT BUN (Blood Urea 16 6 - 21 11/18/2021 DTL Nitrogen), S mg/dL 11:18 AM CDT Creatinine 0.49 (L) 0.59 - 11/18/2021 DTL 1.04 mg/dL 12:18 PM CDT eGFR-Non >90 >=60 11/18/2021 DTL Black/ mL/min/BSA 12:18 PM CDT Israeli Comment: ----ADDITIONAL INFORMATION---- Estimated GFR calculated using the 2009 CKD_EPI creatinine equation. eGFR-Black/ >90 >=60 mL/min/BSA 2021 12:18 PM CDT DTL Comment: ----ADDITIONAL INFORMATION---- Estimated GFR calculated using the 2009 CKD_EPI creatinine equation. Calcium, Total, S 9.7 8.6 - 10.0 mg/dL 11/18/2021 11:1 8 AM DTL CDT Glucose, S 113 70 - 140 mg/dL 11/18/2021 11:18 AM DTL CDT Protein, Total, S 6.4 6.3 - 7.9 g/dL 11/18/2021 11:52 AM DTL CDT Albumin, S 4.0 3.5 - 5.0 g/dL 11/18/2021 11:18 AM DTL CDT Aspartate Aminotransferase 65 (H) 8 - 43 U/L 11/18/2021 1 1:18 AM DTL (AST), S CDT Alkaline Phosphatase, S 191 (H) 35 - 104 U/L 11/18/2021 11 :18 AM DTL CDT Alanine Aminotransferase 32 7 - 45 U/L 11/18/2021 11: 18 AM DTL (ALT), S CDT Bilirubin, Total, S 17.7 (H) <=1.2 mg/dL 11/18/2021 11:18 A M DTL CDT Specimen Anatomical Collection Method Collection Time Receive d Time (Source) Location / / Volume Laterality Blood (Blood, 11/18/2021 8:56 AM 11/19/19 9:52 Venous) CDT AM CDT Shannan Rand M.D. LAB BLOOD ADD-ON Performing Organization Address City/State/ZIP Code Phon e Number [facility] - [address] [place] [address] [facility] [place] [address] [facility] [address] [facility] (ABNORMAL) CBC with Differential, Blood (11/18/2021 8:56 AM CDT) [facility] Method Time Signature Hemoglobin 9.7 (L) 11.6 - 11/18/2021 DTL 15.0 g/dL 9:48 AM CDT Hematocrit 29.2 (L) 35.5 - 11/18/2021 DTL 44.9 % 10:26 AM CDT Erythrocytes 2.65 (L) 3.92 - 11/18/2021 DTL 5.13 10:26 AM CDT x10(12)/L MCV 110.2 (H) 78.2 - 11/18/2021 DTL 97.9 fL 10:26 AM CDT RBC Distrib Width 20.2 (H) 12.2 - 11/18/2021 DTL 16.1 % 9:48 AM CDT Platelet Count 64 (L) 157 - 371 11/18/2021 DTL x10(9)/L 10:26 AM CDT Leukocytes 9.8 (H) 3.4 - 9.6 11/18/2021 DTL x10(9)/L 10:26 AM CDT Neutrophils 7.07 (H) 1.56 - 11/18/2021 DTL 6.45 10:26 AM CDT x10(9)/L Lymphocytes 1.48 0.95 - 11/18/2021 DTL 3.07 10:26 AM CDT x10(9)/L Monocytes 1.16 (H) 0.26 - 11/18/2021 DTL 0.81 10:26 AM CDT x10(9)/L Eosinophils 0.07 0.03 - 11/18/2021 DTL 0.48 10:26 AM CDT x10(9)/L Basophils 0.03 0.01 - 11/18/2021 DTL 0.08 10:26 AM CDT x10(9)/L Specimen Anatomical Collection Method Collection Time Receive d Time (Source) Location / / Volume Laterality Blood (Blood, 11/18/2021 8:56 AM 11/19/19 22 9:38 Venous) CDT AM CDT Shannan Rand M.D. LAB BLOOD ADD-ON Performing Organization Address City/State/ZIP Code Phon e Number [facility] - [address] [place] [address] [facility] [place] [address] [facility] 200 [facility] EEG prolonged (11/17/2021 10:14 AM CDT) Specimen [...] Rodriguez M.D. NEUROLOGY ORDERABLES Performing Organization Address [facility]/ZIP Code Phon e Number MMODAL MMODAL NA [...] Rodriguez M.D. NEUROLOGY ORDERABLES Performing Organization Address City/[facility]/ZIP Code Phon e Number MMODAL MMODAL NA DX Abdomen Portable Anterior Posterior 1 View (11/16/2021 9:08 PM CDT) Anatomical Region Laterality Modality Abdomen, Abdominal RST LOS, Abdominal ARZ LOS, N/A Digital Radiography Abdominal FLA LOS Specimen (Source) Anatomical Collection Method Collection Time Re ceived Time Location / / Volume Laterality 11/16/2021 9:22 PM CDT Impressions 11/17/2021 11:44 AM CDT Nonobstructive bowel gas pattern. Enteri c tube tip in the stomach. IUD. Narrative 11/17/2021 11:44 AM CDT EXAM: ??DX ABDOMEN PORTABLE ANTERIOR POSTERIOR 1 VIEW Procedure Note Sonia Chadwick M.D. - 11/17/2021Forma tting of this note might be different from the original. EXAM: DX ABDOMEN PORTABLE ANTERIOR POSTE RIOR 1 VIEW IMPRESSION: Nonobstructive bowel gas pattern. Enteri c tube tip in the stomach. IUD. Harish Schulz M.D. [facility]MTrist[facility]AG[facility] PROCE [place] (ABNORMAL) Comprehensive Metabolic Panel (11/16/2021 7:11 AM CDT) Analysis Performed At Patho logist Time Signature Potassium, S 3.6 3.6 - 5.2 11/16/2021 DTL mmol/L 10:05 AM CDT Sodium, S 143 135 - 145 11/16/2021 DTL mmol/L 10:05 AM CDT Chloride, S 112 (H) 98 - 107 11/16/2021 DTL mmol/L 10:05 AM CDT Bicarbonate, S 21 (L) 22 - 29 11/16/2021 DTL mmol/L 10:05 AM CDT Anion Gap 10 7 - 15 11/16/2021 DTL 10:05 AM CDT BUN (Blood Urea 16 6 - 21 11/16/2021 DTL Nitrogen), S mg/dL 10:05 AM CDT Creatinine 0.48 (L) 0.59 - 11/16/2021 DTL 1.04 mg/dL 10:20 AM CDT eGFR-Non >90 >=60 11/16/2021 DTL Black/ mL/min/BSA 10:20 AM CDT Israeli Comment: ----ADDITIONAL INFORMATION---- Estimated GFR calculated using the 2009 CKD_EPI creatinine equation. eGFR-Black/ >90 >=60 mL/min/BSA 2021 10:20 AM CDT DTL Comment: ----ADDITIONAL INFORMATION---- Estimated GFR calculated using the 2009 CKD_EPI creatinine equation. Calcium, Total, S 8.4 (L) 8.6 - 10.0 mg/dL 11/16/2021 10:0 5 AM DTL CDT Glucose, S 106 70 - 140 mg/dL 11/16/2021 10:05 AM DTL CDT Protein, Total, S 4.8 (L) 6.3 - 7.9 g/dL 11/16/2021 10:05 AM DTL CDT Albumin, S 3.3 (L) 3.5 - 5.0 g/dL 11/16/2021 10:05 AM DTL CDT Aspartate Aminotransferase 57 (H) 8 - 43 U/L 11/16/2021 1 0:05 AM DTL (AST), S CDT Alkaline Phosphatase, S 168 (H) 35 - 104 U/L 11/16/2021 10 :05 AM DTL CDT Alanine Aminotransferase 24 7 - 45 U/L 11/16/2021 10: 05 AM DTL (ALT), S CDT Bilirubin, Total, S 14.3 (H) <=1.2 mg/dL 11/16/2021 10:05 A M DTL CDT Specimen Anatomical Collection Method Collection Time Receive d Time (Source) Location / / Volume Laterality Blood (Blood, 11/16/2021 7:11 AM 11/17/19 7:55 Venous) CDT AM CDT Dina Campa M.D. LAB BLOOD ADD-ON Performing Organization Address City/State/ZIP Code Phon e Number [facility] - [address] [place] [address] [address] [facility] [place] [address] [facility] [address] [facility] (ABNORMAL) CBC with Differential, Blood (11/16/2021 7:11 AM CDT) [facility] Method Time Signature Hemoglobin 7.7 (L) 11.6 - 11/16/2021 DTL 15.0 g/dL 7:40 AM CDT Hematocrit 23.0 (L) 35.5 - 11/16/2021 DTL 44.9 % 7:40 AM CDT Erythrocytes 2.16 (L) 3.92 - 11/16/2021 DTL 5.13 7:40 AM CDT x10(12)/L MCV 106.5 (H) 78.2 - 11/16/2021 DTL 97.9 fL 7:40 AM CDT RBC Distrib Width 18.7 (H) 12.2 - 11/16/2021 DTL 16.1 % 7:40 AM CDT Platelet Count 46 (L) 157 - 371 11/16/2021 DTL x10(9)/L 7:40 AM CDT Leukocytes 6.2 3.4 - 9.6 11/16/2021 DTL x10(9)/L 7:40 AM CDT Neutrophils 3.93 1.56 - 11/16/2021 DTL 6.45 7:40 AM CDT x10(9)/L Lymphocytes 1.36 0.95 - 11/16/2021 DTL 3.07 7:40 AM CDT x10(9)/L Monocytes 0.81 0.26 - 11/16/2021 DTL 0.81 7:40 AM CDT x10(9)/L Eosinophils 0.10 0.03 - 11/16/2021 DTL 0.48 7:40 AM CDT x10(9)/L Basophils 0.03 0.01 - 11/16/2021 DTL 0.08 7:40 AM CDT x10(9)/L Specimen Anatomical Collection Method Collection Time Receive d Time (Source) Location / / Volume Laterality Blood (Blood, 11/16/2021 7:11 AM 11/17/19 22 7:33 Venous) CDT AM CDT Dina Campa M.D. LAB BLOOD ADD-ON Performing Organization Address City/State/[facility] Code Phon e Number [facility] - 200 [place], [place] [address] [facility] [place] [address] [facility] [address] [facility] MR Brain without IV Contrast (11/15/2021 1:07 [...] PROCEDURES Drug Screen Urine (11/15/2021 11:15 AM CDT) [facility] Method Time Signature Ethanol, Negative NEGATIVE 11/15/2021 [...] Midstream) AM CDT PM CDT Gerard Andino M.D., M.S. LAB URINE ORDERABLES Performing Organization Address City/State/ZIP Code Phon e Number [facility] - 200 [place], [place] [address] [place], [place] [address] [place] [address] (ABNORMAL) Ammonia (11/15/2021 6:14 AM CDT) athologist Signature Ammonia, P 31 (H) <=30 11/15/2021 DTL mcmol/L 7:00 AM CDT Specimen Anatomical Collection Method Collection Time Receive d Time (Source) Location / / Volume Laterality Blood (Blood, 11/15/2021 6:14 AM 11/16/19 6:36 Venous) CDT AM CDT Gerard Andino M.D., M.S. LAB BLOOD NON ADD-ON Performing Organization Address City/[facility] Phon e Number [facility] - 200 [place], [place] [address] [place] [id number] [place] [address] Phosphorus Inorganic (11/15/2021 6:14 AM CDT) athologist Signature Phosphorus 2.5 2.5 - 4.5 11/15/2021 DTL (Inorganic), S mg/dL 7:16 AM CDT Specimen Anatomical Collection Method Collection Time Receive d Time (Source) Location / / Volume Laterality Blood (Blood, 11/15/2021 6:14 AM 11/16/19 7:02 Venous) CDT AM CDT Gerard Andino M.D., M.S. LAB BLOOD ADD-ON Performing Organization Address City/[facility]/ZIP [facility] Phon e Number [facility] - 200 [place], [place] [address] [place] [phone] [place] [address] Magnesium (11/15/2021 6:14 AM CDT) athologist Signature Magnesium, S 2.1 1.7 - 2.3 11/15/2021 DTL mg/dL 7:16 AM CDT Specimen Anatomical Collection Method Collection Time Receive d Time (Source) Location / / Volume Laterality Blood (Blood, 11/15/2021 6:14 AM 11/16/19 22 7:02 Venous) CDT AM CDT Gerard Andino M.D., M.S. LAB BLOOD ADD-ON Performing Organization Address City/State/[facility] Phon e Number [facility] - [address] [place] [address] (ABNORMAL) Hepatic Function Panel (11/15/2021 6:14 AM CDT) Patholo gist Method Time Signature Bilirubin, Total, S 15.8 (H) <=1.2 11/15/2021 DTL mg/dL 7:30 AM CDT Bilirubin, Direct, S 7.2 (H) 0.0 - 0.3 11/15/2021 DTL mg/dL 7:30 AM CDT Aspartate 42 8 - 43 11/15/2021 DTL Aminotransferase U/L 7:30 AM CDT (AST), S Alanine 18 7 - 45 11/15/2021 DTL Aminotransferase U/L 7:30 AM CDT (ALT), S Alkaline 140 (H) 35 - 104 11/15/2021 DTL Phosphatase, S U/L 7:30 AM CDT Albumin, S 3.3 (L) 3.5 - 5.0 11/15/2021 DTL g/dL 7:30 AM CDT Protein, Total, S 4.7 (L) 6.3 - 7.9 11/15/2021 DTL g/dL 8:52 AM CDT Specimen Anatomical Collection Method Collection Time Receive d Time (Source) Location / / Volume Laterality Blood (Blood, 11/15/2021 6:14 AM 11/16/19 6:52 Venous) CDT AM CDT Gerard Andino M.D., M.S. LAB BLOOD ADD-ON Performing Organization Address City/State/[facility] Code Phon e Number [facility] - [address] [place], [place] [phone] [place] [address] (ABNORMAL) Basic Metabolic Panel (11/15/2021 6:14 AM CDT) Analysis Performed At Patho logist Time Signature Potassium, S 3.7 3.6 - 5.2 11/15/2021 DTL mmol/L 7:30 AM CDT Sodium, S 140 135 - 145 11/15/2021 DTL mmol/L 7:30 AM CDT Chloride, S 108 (H) 98 - 107 11/15/2021 DTL mmol/L 7:30 AM CDT Bicarbonate, S 20 (L) 22 - 29 11/15/2021 DTL mmol/L 7:30 AM CDT Anion Gap 12 7 - 15 11/15/2021 DTL 7:30 AM CDT BUN (Blood Urea 19 6 - 21 11/15/2021 DTL Nitrogen), S mg/dL 7:30 AM CDT Creatinine 0.55 (L) 0.59 - 11/15/2021 DTL 1.04 mg/dL 10:03 AM CDT eGFR-Non >90 >=60 11/15/2021 DTL Black/ mL/min/BSA 10:03 AM CDT Israeli Comment: ----ADDITIONAL INFORMATION---- Estimated GFR calculated using the 2009 CKD_EPI creatinine equation. eGFR-Black/ >90 >=60 mL/min/BSA 2021 10:03 AM CDT DTL Comment: ----ADDITIONAL INFORMATION---- Estimated GFR calculated using the 2009 CKD_EPI creatinine equation. Calcium, Total, S 8.7 8.6 - 10.0 mg/dL 11/15/2021 7:30 AM CDT DTL Glucose, S 109 70 - 140 mg/dL 11/15/2021 7:30 AM CDT D TL Specimen Anatomical Collection Method Collection Time Receive d Time (Source) Location / / Volume Laterality Blood (Blood, 11/15/2021 6:14 AM 11/16/19 6:52 Venous) CDT AM CDT Gerard Andino M.D., M.S. LAB BLOOD ADD-ON Performing Organization Address City/State/ZIP Code Phon e Number [facility] - [address] [place], [place] [address] [facility] [place] [address] [facility] [address] (ABNORMAL) CBC without Differential (11/15/2021 6:14 AM CDT) [facility] gist Method Time Signature Hemoglobin 7.8 (L) 11.6 - 11/15/2021 DTL 15.0 g/dL 6:47 AM CDT Hematocrit 23.0 (L) 35.5 - 11/15/2021 DTL 44.9 % 6:47 AM CDT Erythrocytes 2.20 (L) 3.92 - 11/15/2021 DTL 5.13 6:47 AM CDT x10(12)/L MCV 104.5 (H) 78.2 - 11/15/2021 DTL 97.9 fL 6:47 AM CDT RBC Distrib Width 18.5 (H) 12.2 - 11/15/2021 DTL 16.1 % 6:47 AM CDT Platelet Count 50 (L) 157 - 371 11/15/2021 DTL x10(9)/L 6:47 AM CDT Leukocytes 6.7 3.4 - 9.6 11/15/2021 DTL x10(9)/L 6:47 AM CDT Specimen Anatomical Collection Method Collection Time Receive d Time (Source) Location / / Volume Laterality Blood (Blood, 11/15/2021 6:14 AM 11/16/19 6:40 Venous) CDT AM CDT Gerard Andino M.D., M.S. LAB BLOOD ADD-ON Performing Organization Address City/[facility] Phon e Number [facility] - [address] Phosphorus Inorganic (11/14/2021 9:00 PM CDT) P athologist Signature Phosphorus 2.6 2.5 - 4.5 11/14/2021 DTL (Inorganic), S mg/dL 10:55 PM CDT Specimen Anatomical Collection Method Collection Time Receive d Time (Source) Location / / Volume Laterality Blood (Blood, 11/14/2021 9:00 PM 11/15/19 22 9:46 Venous) CDT PM CDT Gerard Andino M.D., M.S. LAB BLOOD ADD-ON Performing Organization Address City/[facility] Phon e Number [facility] - 200 [place] [phone] Magnesium (11/14/2021 9:00 PM CDT) athologist Signature Magnesium, S 1.8 1.7 - 2.3 11/14/2021 DTL mg/dL 10:55 PM CDT Specimen Anatomical Collection Method Collection Time Receive d Time (Source) Location / / Volume Laterality Blood (Blood, 11/14/2021 9:00 PM 11/15/19 9:46 Venous) CDT PM CDT Gerard Andino M.D., M.S. LAB BLOOD ADD-ON Performing Organization Address City/[facility] Phon e Number [facility] [address] Potassium (11/14/2021 9:00 PM CDT) athologist Signature Potassium, S 4.1 3.6 - 5.2 11/14/2021 DTL mmol/L 10:55 PM CDT Specimen Anatomical Collection Method Collection Time Receive d Time (Source) Location / / Volume Laterality Blood (Blood, 11/14/2021 9:00 PM 11/15/19 9:46 Venous) CDT PM CDT Gerard Andino M.D., M.S. LAB BLOOD ADD-ON Performing Organization Address City/State/[facility] Phon e Number [facility] - [address] (ABNORMAL) Hepatic Function Panel (11/14/2021 6:56 AM CDT) Patholo gist Method Time Signature Bilirubin, Total, S 19.2 (H) <=1.2 11/14/2021 DTL mg/dL 8:08 AM CDT Bilirubin, Direct, S 8.9 (H) 0.0 - 0.3 11/14/2021 DTL mg/dL 8:08 AM CDT Aspartate 42 8 - 43 11/14/2021 DTL Aminotransferase U/L 8:08 AM CDT (AST), S Alanine 18 7 - 45 11/14/2021 DTL Aminotransferase U/L 8:08 AM CDT (ALT), S Alkaline 159 (H) 35 - 104 11/14/2021 DTL Phosphatase, S U/L 8:08 AM CDT Albumin, S 3.6 3.5 - 5.0 11/14/2021 DTL g/dL 8:08 AM CDT Protein, Total, S 5.2 (L) 6.3 - 7.9 11/14/2021 DTL g/dL 8:48 AM CDT Specimen Anatomical Collection Method Collection Time Receive d Time (Source) Location / / Volume Laterality Blood (Blood, 11/14/2021 6:56 AM 11/15/19 7:38 Venous) CDT AM CDT Gerard Andino M.D., M.S. LAB BLOOD ADD-ON Performing Organization Address City/State/[facility] Code Phon e Number [facility] - [address] [place] [address] [phone] [facility] [place] [address] Laboratories-[facility] [address] [facility] (ABNORMAL) Basic Metabolic Panel (11/14/2021 6:56 AM CDT) Analysis Performed At Patho logist Time Signature Potassium, S 4.2 3.6 - 5.2 11/14/2021 DTL mmol/L 8:08 AM CDT Sodium, S 139 135 - 145 11/14/2021 DTL mmol/L 8:08 AM CDT Chloride, S 107 98 - 107 11/14/2021 DTL mmol/L 8:08 AM CDT Bicarbonate, S 20 (L) 22 - 29 11/14/2021 DTL mmol/L 8:08 AM CDT Anion Gap 12 7 - 15 11/14/2021 DTL 8:08 AM CDT BUN (Blood Urea 18 6 - 21 11/14/2021 DTL Nitrogen), S mg/dL 8:08 AM CDT Creatinine 0.56 (L) 0.59 - 11/14/2021 DTL 1.04 mg/dL 9:14 AM CDT eGFR-Non >90 >=60 11/14/2021 DTL Black/ mL/min/BSA 9:14 AM CDT Israeli Comment: ----ADDITIONAL INFORMATION---- Estimated GFR calculated using the 2009 CKD_EPI creatinine equation. eGFR-Black/ >90 >=60 mL/min/BSA 2021 9:14 AM CDT DTL Comment: ----ADDITIONAL INFORMATION---- Estimated GFR calculated using the 2009 CKD_EPI creatinine equation. Calcium, Total, S 9.1 8.6 - 10.0 mg/dL 11/14/2021 8:08 AM CDT DTL Glucose, S 101 70 - 140 mg/dL 11/14/2021 8:08 AM CDT D TL Specimen Anatomical Collection Method Collection Time Receive d Time (Source) Location / / Volume Laterality Blood (Blood, 11/14/2021 6:56 AM 11/15/19 7:38 Venous) CDT AM CDT Gerard Andino M.D., M.S. LAB BLOOD ADD-ON Performing Organization Address City/State/[facility] Code Phon e Number [facility] - [address] [place] [address] [facility] [place] [address] Laboratories-[facility] [address] [facility] (ABNORMAL) CBC without Differential (11/14/2021 6:56 AM CDT) [facility] [employer] gist Method Time Signature Hemoglobin 9.1 (L) 11.6 - 11/14/2021 DTL 15.0 g/dL 7:29 AM CDT Hematocrit 26.3 (L) 35.5 - 11/14/2021 DTL 44.9 % 7:29 AM CDT Erythrocytes 2.56 (L) 3.92 - 11/14/2021 DTL 5.13 7:29 AM CDT x10(12)/L MCV 102.7 (H) 78.2 - 11/14/2021 DTL 97.9 fL 7:29 AM CDT RBC Distrib Width 18.7 (H) 12.2 - 11/14/2021 DTL 16.1 % 7:29 AM CDT Platelet Count 46 (L) 157 - 371 11/14/2021 DTL x10(9)/L 7:29 AM CDT Leukocytes 7.7 3.4 - 9.6 11/14/2021 DTL x10(9)/L 7:29 AM CDT Specimen Anatomical Collection Method Collection Time Receive d Time (Source) Location / / Volume Laterality Blood (Blood, 11/14/2021 6:56 AM 11/15/19 22 7:19 Venous) CDT AM CDT Gerard Andino M.D. MSumaS. LAB BLOOD ADD-ON Performing Organization Address City/State/ZIP Code Phon e Number [facility] - [address] [place], [place] [address] [facility] [place] [address] [facility] [address] [facility] SARS Coronavirus 2, Antigen, Rapid, V Asymptomatic (11/13/2021 9:45 AM CDT) [facility] Method Time Signature SARS CoV-2, Undetected Undetected [...] us ing the SARS-CoV-2 Ag Test from [employer], which has received Emergency U se Authorization (EUA) by the U.S. Food and Drug Administration. Fact sheets for this Emergency Use Autho rization (EUA) assay can be found at the following links: For Healthcare Providers: https://www.[employer]/assets/images/n ew/pdf/eom-kpk-ehvx-kojbe-urypwmgg-r upl-ydr-3-ag-test.pdf?v=4 For Patients: https://www.[employer]/assets/images/n ew/pdf/hcy-uvvmzlv-faoz-sheet-lumira om-kszu-cqj-8-qcvrpkg-tcvx.pdf?v=5 SARS CoV-2, Antigen, Rapid, Swab, Nasopharynx 10/31 9:54 AM CDT STMA Source Specimen Anatomical Collection Method Collection Time Receive d Time (Source) Location / / Volume Laterality Varies 11/13/2021 9:45 AM 9:54 (Nasopharynx) CDT AM CDT Gerard Andino M.D., M.S. LAB MICROBIOLOGY - GENERAL O RDERABLES Performing Organization Address City/[facility] Phon e Number [facility] - [address] [place], [place] [address] [facility] [place] [address] [facility] [address] [facility] (ABNORMAL) Hepatic Function Panel (11/13/2021 6:19 AM CDT) Patholo gist Method Time Signature Bilirubin, Total, S 16.8 (H) <=1.2 11/13/2021 DTL mg/dL 8:00 AM CDT Bilirubin, Direct, S 8.3 (H) 0.0 - 0.3 11/13/2021 DTL mg/dL 8:00 AM CDT Aspartate 44 (H) 8 - 43 11/13/2021 DTL Aminotransferase U/L 8:00 AM CDT (AST), S Alanine 15 7 - 45 11/13/2021 DTL Aminotransferase U/L 8:00 AM CDT (ALT), S Alkaline 137 (H) 35 - 104 11/13/2021 DTL Phosphatase, S U/L 8:00 AM CDT Albumin, S 3.2 (L) 3.5 - 5.0 11/13/2021 DTL g/dL 8:00 AM CDT Protein, Total, S 4.3 (L) 6.3 - 7.9 11/13/2021 DTL g/dL 8:29 AM CDT Specimen Anatomical Collection Method Collection Time Receive d Time (Source) Location / / Volume Laterality Blood (Blood, 11/13/2021 6:19 AM 11/14/19 6:50 Venous) CDT AM CDT Gerard Andino M.D., M.S. LAB BLOOD ADD-ON Performing Organization Address City/State/[facility] Code Phon e Number [facility] - [address] [place], [place] [address] [facility] [place] [address] Laboratories-[address] (ABNORMAL) Basic Metabolic Panel (11/13/2021 6:19 AM CDT) Analysis Performed At Patho logist Time Signature Potassium, S 4.3 3.6 - 5.2 11/13/2021 DTL mmol/L 8:00 AM CDT Sodium, S 139 135 - 145 11/13/2021 DTL mmol/L 8:00 AM CDT Chloride, S 107 98 - 107 11/13/2021 DTL mmol/L 8:00 AM CDT Bicarbonate, S 19 (L) 22 - 29 11/13/2021 DTL mmol/L 8:00 AM CDT Anion Gap 13 7 - 15 11/13/2021 DTL 8:00 AM CDT BUN (Blood Urea 14 6 - 21 11/13/2021 DTL Nitrogen), S mg/dL 8:00 AM CDT Creatinine 0.58 (L) 0.59 - 11/13/2021 DTL 1.04 mg/dL 9:23 AM CDT eGFR-Non >90 >=60 11/13/2021 DTL Black/ mL/min/BSA 9:23 AM CDT Israeli Comment: ----ADDITIONAL INFORMATION---- Estimated GFR calculated using the 2009 CKD_EPI creatinine equation. eGFR-Black/ >90 >=60 mL/min/BSA 2021 9:23 AM CDT DTL Comment: ----ADDITIONAL INFORMATION---- Estimated GFR calculated using the 2009 CKD_EPI creatinine equation. Calcium, Total, S 8.6 8.6 - 10.0 mg/dL 11/13/2021 8:00 AM CDT DTL Glucose, S 91 70 - 140 mg/dL 11/13/2021 8:00 AM CDT D TL Specimen Anatomical Collection Method Collection Time Receive d Time (Source) Location / / Volume Laterality Blood (Blood, 11/13/2021 6:19 AM 11/14/19 6:50 Venous) CDT AM CDT Gerard Andino M.D., M.S. LAB BLOOD ADD-ON Performing Organization Address City/State/ZIP Code Phon e Number [facility] - [address] [place], [place] [address] [facility] [place] [address] [facility] [address] (ABNORMAL) CBC without Differential (11/13/2021 6:19 AM CDT) [facility] Method Time Signature Hemoglobin 7.9 (L) 11.6 - 11/13/2021 DTL 15.0 g/dL 6:44 AM CDT Hematocrit 22.5 (L) 35.5 - 11/13/2021 DTL 44.9 % 6:44 AM CDT Erythrocytes 2.21 (L) 3.92 - 11/13/2021 DTL 5.13 6:44 AM CDT x10(12)/L MCV 101.8 (H) 78.2 - 11/13/2021 DTL 97.9 fL 6:44 AM CDT RBC Distrib Width 18.7 (H) 12.2 - 11/13/2021 DTL 16.1 % 6:44 AM CDT Platelet Count 47 (L) 157 - 371 11/13/2021 DTL x10(9)/L 6:44 AM CDT Leukocytes 6.9 3.4 - 9.6 11/13/2021 DTL x10(9)/L 6:44 AM CDT Specimen Anatomical Collection Method Collection Time Receive d Time (Source) Location / / Volume Laterality Blood (Blood, 11/13/2021 6:19 AM 11/14/19 6:36 Venous) CDT AM CDT Gerard Andino M.D., M.S. LAB BLOOD ADD-ON Performing Organization Address City/State/ZIP Code Phon e Number [facility] - [address] [place] [address] [facility] [place] [place] [address] [facility] [address] [facility] DX Abdomen Portable Anterior Posterior 1 View (11/12/2021 5:40 PM CDT) Anatomical Region Laterality Modality Abdomen, Abdominal RST LOS, Abdominal ARZ LOS, N/A Digital Radiography Abdominal FLA LOS Specimen (Source) Anatomical Collection Method Collection Time Re ceived Time Location / / Volume Laterality 11/12/2021 5:49 PM CDT Impressions 11/12/2021 5:58 PM CDT Enteric tube with tip in the stomach. Wi re stiffener still in place. Narrative 11/12/2021 5:58 PM CDT EXAM: ??DX ABDOMEN PORTABLE ANTERIOR POSTERIOR 1 VIEW Procedure Note Migue Lawson M.D. - 11/12/2021For matting of this note might be different from the original. EXAM: DX ABDOMEN PORTABLE ANTERIOR POSTE RIOR 1 VIEW IMPRESSION: Enteric tube with tip in the stomach. Wi re stiffener still in place. Jo Ann Rubi M.D., M.S. IMG DIAGNOSTIC IMAGING P ROCEDURES CT Head without IV Contrast (11/12/2021 3:52 [...] HEAD WITHOUT IV CONTRAST COMPARISON: Compared to [facility] head CT fro 03/21/2021. FINDINGS: Beam hardening [...] HEAD WITHOUT IV CONTRAST COMPARISON: Compared to [facility] head CT fro 03/21/2021. FINDINGS: Beam hardening [...] Rapid, V Symptomatic (11/12/2021 3:44 AM CDT) [facility] Method Time Signature SARS CoV-2, Detected (A) Undetected 11/12/2021 STMA PCR, Rapid, V 4:20 AM CDT Comment: ----ADDITIONAL INFORMATION---- This RT-PCR test was performed using the Daniel SARS-CoV-2 and Influenza A/B Reagent assay from [employer], which has received Emergency Use Authori zation(EUA) by the U.S. Food and Drug Administration . Fact sheets for this Emergency Use Autho rization (EUA) assay can be found at the following link s: For Healthcare Providers: https://www.fda.gov/media/394918/downloa d For Patients: https://www.fda.gov/media/789982/downloa d SARS Coronavirus 2, Source, Rapid Swab, Nasopharynx 11/12/2021 3:48 AM CDT STMA Specimen Anatomical Collection Method Collection Time Receive d Time (Source) Location / / Volume Laterality Varies 11/12/2021 3:44 AM 3:48 (Nasopharynx) CDT AM CDT Rosaura Sevilla M.D., M.P.H. LAB MICROBIOLOGY - GENERA L ORDERABLES Performing Organization Address City/State/ZIP Code Phon e Number [facility] - [address] [place], [place] [address] [facility] [place] [address] [facility] [address] Drug Screen Urine (11/12/2021 3:19 AM CDT) [facility] Method Time Signature Ethanol, Negative NEGATIVE 11/12/2021 DTL Screen U 5:02 AM CDT Amphetamines, Negative NEGATIVE 11/12/2021 DTL U 5:02 AM CDT Barbiturates, Negative NEGATIVE 11/12/2021 DTL Screen, U 5:02 AM CDT Benzodiazepin Negative NEGATIVE 11/12/2021 DTL es, Screen, U 5:02 AM CDT Cocaine, Negative NEGATIVE 11/12/2021 DTL Screen, U 5:02 AM CDT Opiates, Negative NEGATIVE 11/12/2021 DTL Screen, U 5:02 AM CDT Phencyclidine Negative NEGATIVE 11/12/2021 DTL , Screen, U 5:02 AM CDT Tetrahydrocan Presumptive NEGATIVE 11/12/2021 DTL nabinol, U Positive 5:03 AM CDT Specimen Anatomical Collection Method Collection Time Receive d Time (Source) Location / / Volume Laterality Urine (Urine, 11/12/2021 3:19 AM 11/13/19 4:14 Midstream) CDT AM CDT Titi Oswald M.D. LAB URINE ORDERABLES Performing Organization Address City/State/ZIP Code Phon e Number [facility] - [address] [place], [place] [address] [facility] [place] [address] [facility] [address] Peripheral Venous Access (11/12/2021 1:58 AM CDT) [...] ?? Complications: no immediate complication s ?? Authorizing Provider Result Woodrow Sevilla M.D., M.P.H. IV THERAPY ORDERABLES (ABNORMAL) Prothrombin Time (PT) (11/12/2021 1:54 AM CDT) [facility] [facility] [employer] gist Method Time Signature Prothrombin 37.4 (H) 9.4 - 12.5 11/12/2021 STMA Time, P sec 2:13 AM CDT INR 3.3 0.9 - 1.1 11/12/2021 STMA 2:13 AM CDT Comment: ----ADDITIONAL INFORMATION---- Standard intensity warfarin therapeutic range: 2.0 to 3.0 ?? High intensity warfarin therapeutic rang e: 2.5 to 3.5 Specimen Anatomical Collection Method Collection Time Receive d Time (Source) Location / / Volume Laterality Blood (Blood, 11/12/2021 1:54 AM 11/13/19 1:59 Venous) CDT AM CDT Titi Oswald M.D. LAB BLOOD ADD-ON Performing Organization Address City/[facility]/ZIP Code Phon e Number [facility] - [address] [place], [place] [address] [place] [address] [facility] [address] (ABNORMAL) APTT (Activated Partial Thromboplastin Time) (11/12/2021 1:54 AM CDT) P athologist Signature Activated 42 (H) 25 - 37 11/12/2021 STMA Partial sec 2:16 AM CDT Thrombopl Time, P Specimen Anatomical Collection Method Collection Time Receive d Time (Source) Location / / Volume Laterality Blood (Blood, 11/12/2021 1:54 AM 11/13/19 22 1:59 Venous) CDT AM CDT Titi Oswald M.D. LAB BLOOD ADD-ON Performing Organization Address City/State/ZIP Code Phon e Number [facility] - [address] [place], [place] [address] [facility] [place] [address] Laboratories-[address] Ethanol Level, Serum (11/12/2021 1:54 AM CDT) athologist Signature Ethanol, S <10 <10 mg/dL 11/12/2021 3:15 DTL AM CDT Specimen Anatomical Collection Method Collection Time Receive d Time (Source) Location / / Volume Laterality Blood (Blood, 11/12/2021 1:54 AM 11/13/19 2:40 Venous) CDT AM CDT Authorizing Provider Result Woodrow Oswald M.D. LAB BLOOD NON ADD-ON Performing Organization Address City/State/[facility] Code Phon e Number [facility] - [address] [place], [place] [address] [place] [address] Laboratories-[address] S-TSH (Thyroid-Stimulating Hormone - Sensitive) (11/12/2021 1:54 AM CDT) athologist [facility] TSH, Sensitive 3.3 0.3 - 4.2 11/12/2021 DTL mIU/L 3:15 AM CDT Specimen Anatomical Collection Method Collection Time Receive d Time (Source) Location / / Volume Laterality Blood (Blood, 11/12/2021 1:54 AM 11/13/19 2:40 Venous) CDT AM CDT Authorizing Provider Result Woordow Oswald M.D. LAB BLOOD ADD-ON Performing Organization Address City/State/[facility] Code Phon e Number [facility] - [address] [place], [place] [address] 05 [place] [address] (ABNORMAL) Basic Metabolic Panel (11/12/2021 1:54 AM CDT) athologist Signature Potassium, P 3.8 3.6 - 5.2 11/12/2021 STMA mmol/L 2:17 AM CDT Sodium, P 133 (L) 135 - 145 11/12/2021 STMA mmol/L 2:17 AM CDT Chloride, P 102 98 - 107 11/12/2021 STMA mmol/L 2:17 AM CDT Bicarbonate, P 20 (L) 22 - 29 11/12/2021 STMA mmol/L 2:17 AM CDT Anion Gap, P 11 7 - 15 11/12/2021 STMA 2:17 AM CDT BUN (Blood Urea 12 6 - 21 11/12/2021 STMA Nitrogen), P mg/dL 2:17 AM CDT Creatinine 0.70 0.59 - 11/12/2021 DTL 1.04 mg/dL 3:01 AM CDT eGFR-Black/Afri >90 >=60 11/12/2021 DTL can Israeli mL/min/BSA 3:01 AM CDT Comment: ----ADDITIONAL INFORMATION---- Estimated GFR calculated using the 2009 CKD_EPI creatinine equation. eGFR Non-Black/ >90 >=60 mL/min/BSA 3:01 AM CDT DTL Comment: ----ADDITIONAL INFORMATION---- Estimated GFR calculated using the 2009 CKD_EPI creatinine equation. Calcium, Total, P 8.9 8.6 - 10.0 mg/dL 11/12/2021 2:17 AM CDT STMA Glucose, P 141 (H) 70 - 140 mg/dL 11/12/2021 2:17 AM CDT S TMA Specimen Anatomical Collection Method Collection Time Receive d Time (Source) Location / / Volume Laterality Blood (Blood, 11/12/2021 1:54 AM 11/13/19 2:01 Venous) CDT AM CDT Authorizing Provider Result Woodrow Oswald M.D. LAB BLOOD ADD-ON Performing Organization Address City/State/ZIP Code Phon e Number [facility] - [address] [place], [place] [address] [facility] [place] [address] [facility] [address] [place] [address] [facility] [address] (ABNORMAL) Hepatic Function Panel (11/12/2021 1:54 AM CDT) Patholo gist Method Time Signature Bilirubin, Total, S 18.0 (H) <=1.2 11/12/2021 DTL mg/dL 3:15 AM CDT Bilirubin, Direct, S 9.4 (H) 0.0 - 0.3 11/12/2021 DTL mg/dL 3:15 AM CDT Aspartate 52 (H) 8 - 43 11/12/2021 DTL Aminotransferase U/L 3:15 AM CDT (AST), S Alanine 18 7 - 45 11/12/2021 DTL Aminotransferase U/L 3:15 AM CDT (ALT), S Alkaline 191 (H) 35 - 104 11/12/2021 DTL Phosphatase, S U/L 3:15 AM CDT Albumin, S 3.5 3.5 - 5.0 11/12/2021 DTL g/dL 3:15 AM CDT Protein, Total, S 5.1 (L) 6.3 - 7.9 11/12/2021 DTL g/dL 3:44 AM CDT Specimen Anatomical Collection Method Collection Time Receive d Time (Source) Location / / Volume Laterality Blood (Blood, 11/12/2021 1:54 AM 11/13/19 2:40 Venous) CDT AM CDT Titi Oswald M.D. LAB BLOOD ADD-ON Performing Organization Address City/[facility] Phon e Number [facility] - [address] DTL [place] [address] [facility] hCG (Human Chorionic Gonadotropin), Quantitative, (11/12/2021 1:54 AM CDT) athologist Signature HCG, 0.5 <5 IU/L 11/12/2021 [facility] Quantitative, 2:17 AM CDT , P Specimen Anatomical Collection Method Collection Time Receive d Time (Source) Location / / Volume Laterality Blood (Blood, 11/12/2021 1:54 AM 11/13/19 22 1:59 Venous) CDT AM CDT Titi Oswald M.D. LAB BLOOD ADD-ON Performing Organization Address City/[facility] Phon e Number [facility] - [address] [place], [place] [address] [facility] STMA [place], [place] [address] [place] [address] [facility] (ABNORMAL) CBC with Differential, Blood (11/12/2021 1:54 AM CDT) [facility] gist Method Time Signature Hemoglobin 8.7 (L) 11.6 - 11/12/2021 STMA 15.0 g/dL 2:02 AM CDT Hematocrit 24.6 (L) 35.5 - 11/12/2021 STMA 44.9 % 2:02 AM CDT Erythrocytes 2.39 (L) 3.92 - 11/12/2021 STMA 5.13 2:02 AM CDT x10(12)/L MCV 102.9 (H) 78.2 - 11/12/2021 STMA 97.9 fL 2:02 AM CDT RBC Distrib Width 19.0 (H) 12.2 - 11/12/2021 STMA 16.1 % 2:02 AM CDT Platelet Count 48 (L) 157 - 371 11/12/2021 DHPM x10(9)/L 3:33 AM CDT Comment: Results confirmed by smear, no clumping or interference seen. Leukocytes 7.7 3.4 - 9.6 x10(9)/L 11/12/2021 3:34 AM C DT STMA Neutrophils 6.13 1.56 - 6.45 x10(9)/L 11/12/2021 2:02 A M CDT STMA Lymphocytes 0.74 (L) 0.95 - 3.07 x10(9)/L 11/12/2021 2:02 A M CDT STMA Monocytes 0.81 0.26 - 0.81 x10(9)/L 11/12/2021 2:02 AM CDT STMA Eosinophils <0.03 0.03 - 0.48 x10(9)/L 11/12/2021 2:02 A M CDT STMA Basophils 0.04 0.01 - 0.08 x10(9)/L 11/12/2021 2:02 AM CDT STMA Specimen Anatomical Collection Method Collection Time Receive d Time (Source) Location / / Volume Laterality Blood (Blood, 11/12/2021 1:54 AM 11/13/19 1:59 Venous) CDT AM CDT Titi Oswald M.D. LAB BLOOD ADD-ON Performing Organization Address City/State/ZIP Code Phon e Number [facility] - [address] [place], [place] [address] [facility] [place] [address] [place] [address] (ABNORMAL) Ammonia (11/12/2021 1:54 AM CDT) P athologist Signature Ammonia, P 38 (H) <=30 11/12/2021 DTL mcmol/L 2:52 AM CDT Specimen Anatomical Collection Method Collection Time Receive d Time (Source) Location / / Volume Laterality Blood (Blood, 11/12/2021 1:54 AM 11/13/19 2:09 Venous) CDT AM CDT Titi Oswald M.D. LAB BLOOD NON ADD-ON Performing Organization Address City/[facility]/ZIP Code Phon e Number [facility] - [address] [place], [place] [address] [facility] [place] [address] Lactate, POCT (11/12/2021 1:54 AM CDT) Analysis Performed At Patho logist Time Signature Lactate, POCT Collected DEFAULT 11/12/2021 SMLX 1:54 AM CDT Specimen Anatomical Collection Method Collection Time Receive d Time (Source) Location / / Volume Laterality Blood (Blood, 11/12/2021 1:54 AM 11/13/19 1:54 Venous) CDT AM CDT Titi Oswald M.D. LAB POCT ORDERABLES - DEVICE Performing Organization Address City/[facility]/ZIP Code Phon e Number [facility] - [address] [place], [place] [address] [facility] [place] [address] Venous Blood Gas and Electrolytes, POCT [...] POCT ORDERABLES - DEVICE Performing Organization Address City/[facility]/ZIP Code Phon e Number [facility] - [address] [place], [place] [address] [facility] [place] [address] [facility] [address] [facility] Lactate, POCT (11/12/2021 1:52 AM CDT) athologist Signature Lactate, POCT 2.19 0.50 - 11/12/2021 PCLX 2.20 2:04 AM CDT mmol/L Sample Site, Venstick 11/12/2021 PCLX POCT 2:04 AM CDT Specimen Anatomical Collection Method Collection Time Receive d Time (Source) Location / / Volume Laterality Blood 11/12/2021 1:52 AM 2 2:04 CDT AM CDT Unknown Provider LAB POCT ORDERABLES - DEVICE Performing Organization Address [facility] Phon e Number POC [facility] [address] [place] [address] PCLX [facility] [place] [address] [facility] [address] [facility] (ABNORMAL) Venous Blood Gas and Electrolytes CG8+, [...] B 36 Not Applicable mm Hg 11/13/19 22 2:04 AM CDT PCSM Comment: ----ADDITIONAL INFORMATION---- [...] City/State/ZIP Code Phon e Number POC [facility] [address] [place], [place] [address] LABS PCSM [facility] [place] [address] [facility] [address] [place] [address] (ABNORMAL) CRP (C-Reactive Protein) (11/11/2021 4:28 AM CDT) P athologist Signature C-Reactive 9.4 (H) <=8.0 mg/L 11/12/2021 DTL Protein (CRP), 7:43 AM CDT S Specimen Anatomical Collection Method Collection Time Receive d Time (Source) Location / / Volume Laterality Blood (Blood, 11/11/2021 4:28 AM 11/13/19 7:26 Venous) CDT AM CDT Gerard Andino M.D., M.S. LAB BLOOD ADD-ON Performing Organization Address City/State/ZIP Code Phon e Number [facility] - [address] [place], [place] [address] [facility] [place] [address] [facility] [address] documented in this encounter Visit Diagnoses Diagnosis Encephalopathy - Primary Change Mental Status Malaise (Concern For Covid-19) Cirrhosis Alcoholic (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 (HCC ) Ascites Anemia Thrombocytopenia (HCC) Delirium documented in this encounter Admitting Diagnoses Diagnosis Change Mental Status Encephalopathy documented in this encounter Administered Medications Inactive Administered Medications - up to 3 most recent administrations Medication Order MAR Action Action Date Dose Rate Site albumin human 25 % injection New Bag 11/16/2021 9:36 PM CDT 12.5 g 100 mL/hr 12.5 g 12.5 g, intravenous, Once, On Wed11/16/21 at 2015, For 1 dose, If no infusion rate specified: Administer the 25% solution at 100 mL/hr albumin human 25 % injection 12.5 g New Bag 11/18/2021 1:33 PM CDT 12.5 g 100 mL/hr 12.5 g, intravenous, Once, On Wed11/18/21 at 0745, For 1 dose, If no infusion rate specified: Administer the 25% solution at 100 mL/hr albumin human 25 % injection 25 g New Bag 11/21/2021 8:58 PM CDT 25 g 25 g, intravenous, Every 1 hour, First dose on Wed11/21/21 at 1730, For 2 doses, If no infusion rate specified: Administer the 25% solution at 100 mL/hr New Bag 11/21/2021 7:55 PM CDT 25 g albumin human 25 % injection 50 g New Bag 11/24/2021 3:00 PM CDT 50 g 100 mL/hr 50 g, intravenous, Once, On Wed11/24/21 at 1400, For 1 dose, If no infusion rate specified: Administer the 25% solution at 100 mL/hr albumin human 5 % injection 12.5 g New Bag 11/22/2021 9:32 AM CDT 12.5 g 12.5 g, intravenous, Once, On 11/22/21 at 0830, For 1 dose, If no infusion rate specified: Administer the 5% solution at 999 mL/hr or less if ICU/shock, otherwise infuse at 250 mL/hr. ciprofloxacin tablet 500 mg (CIPRO) Given 11/14/2021 6:15 AM CDT 500 mg 500 mg, gastric tube, Daily before breakfast, First dose (after last modification) on Wed11/12/21 at 1830, Take 2 hours before or 6 hours after antacids containing magnesium or aluminum, sucralfate, didanosine, polymeric phosphate binders, or products containing calcium, iron, or zinc., Drug Monitoring Program: Pharmacist to adjust medication dosing based on indication and drug clearance factors., Indications: Prophylaxis, medical Given 11/13/2021 9:24 AM CDT 500 mg Given 11/12/2021 7:30 PM CDT 500 mg diclofenac sodium 1 % gel 2 g (VOLTAREN) Given 11/26/2021 9:26 AM CDT 2 g 2 g, topical, 4 times daily, First dose on Wed11/25/21 at 2330, Do not exceed 32 g per day, over all affected joints. Use dosing card to measure product. 2 g = 2.25 inches, 4 gm = 4.5 inches. Rinse dosing card after use and save for each administration. Given 11/25/2021 11:58 PM CDT 2 g folic acid tablet 1 mg Given 11/23/2021 8:35 AM CDT 1 mg 1 mg, gastric tube, Daily, First dose (after last modification) on [place] 11/13/21 at 0900 Given 11/22/2021 8:44 AM CDT 1 mg Given 11/21/2021 9:14 AM CDT 1 mg folic acid tablet 1 mg Given 11/26/2021 9:24 AM CDT 1 mg 1 mg, oral, Daily, First dose (after last modification) on 11/24/21 at 1015 Given 11/25/2021 8:11 AM CDT 1 mg Given 11/24/2021 10:14 AM CDT 1 mg furosemide tablet 40 mg (LASIX) Given 11/23/2021 8:35 AM CDT 40 mg 40 mg, gastric tube, Daily, First dose (after last modification) on [place] 11/13/21 at 0900 Given 11/22/2021 8:44 AM CDT 40 mg Given 11/21/2021 9:14 AM CDT 40 mg furosemide tablet 40 mg (LASIX) Given 11/26/2021 9:24 AM CDT 40 mg 40 mg, oral, Daily, First dose (after last modification) on Wed11/24/21 at 1015 Given 11/25/2021 8:11 AM CDT 40 mg Given 11/24/2021 10:15 AM CDT 40 mg heparin (porcine) Given 11/15/2021 6:19 AM CDT 5,000 Units Left Lower Abdomen injection 5,000 Units 5,000 Units, subcutaneous, Every 8 hours scheduled, First dose on Wed11/12/21 at 1400 Given 11/14/2021 11:00 PM CDT 5,000 Units Left Lower Abdomen Given 11/14/2021 1:27 PM CDT 5,000 Units Right Lower Abdomen heparin (porcine) Given 11/17/2021 9:59 PM CDT 5,000 Units Left Lower Abdomen injection 5,000 Units 5,000 Units, subcutaneous, Every 8 hours scheduled, First dose on Wed11/15/21 at 1400 Given 11/17/2021 1:01 PM CDT 5,000 Units Right Lower Abdomen Given 11/16/2021 10:23 PM CDT 5,000 Units Left Lower Abdomen heparin (porcine) Given 11/26/2021 6:09 AM CDT 5,000 Units Right Lower injection 5,000 Units Abdomen 5,000 Units, subcutaneous, Every 8 hours scheduled, First dose on Wed11/18/21 at 2200 Given 11/25/2021 9:23 PM CDT 5,000 Units Right Upper Abdomen Given 11/25/2021 1:02 PM CDT 5,000 Units Left Upper Arm (Back) HYDROmorphone (PF) injection 0.2 mg Given 11/25/2021 5:49 AM CDT 0.2 mg (DILAUDID) 0.2 mg, intravenous, Once, On Wed11/25/21 at 0545, For 1 dose HYDROmorphone tablet 1 mg (DILAUDID) Given 11/25/2021 8:11 AM CDT 1 mg 1 mg, oral, Once, On Wed11/25/21 at 0800, For 1 dose iohexoL 350 mg iodine/mL solution 1-200 mL Given 11/25/2021 10:2 2 AM CDT 50 mL (OMNIPAQUE) 1-200 mL, intravenous, Once in imaging, contrast, Starting on Wed11/25/21 at 1015, For 1 dose, Imaging Protocol Orders, Dose per Radiant Medication Guidelines lactated Ringer's bolus 250 mL New Bag 11/22/2021 11:10 AM CDT 250 mL 250 mL/hr 250 mL, intravenous, at 250 mL/hr, Administer over 1 Hours, Once, On Wed11/22/21 at 0830, For 1 dose lactated Ringer's bolus 250 Bolus from Bag 11/22/2021 3:55 PM CDT 2 50 mL 250 mL/hr mL 250 mL, intravenous, at 250 mL/hr, Administer over 1 Hours, Once, On Wed11/22/21 at 1445, For 1 dose lactated Ringer's bolus 500 mL New Bag 11/18/2021 2:14 PM CDT 500 mL 500 mL/hr 500 mL, intravenous, at 500 mL/hr, Administer over 1 Hours, Once, On Wed11/18/21 at 0745, For 1 dose lactulose in sterile water 200 gram/1000 mL Given 10/31 1:02 PM CDT 1,000 mL enema 1,000 mL 1,000 mL, rectal, Once, On Wed11/12/21 at 0700, For 1 dose, Total dose= 1000 mL; Instill ~ 300 mL at a time, and retain for 15-20 minutes each lactulose in sterile water 200 gram/1000 mL enema 1,000 mL 1,000 mL, rectal, Daily PRN, constipatio n, Starting on Wed11/16/21 at 1002, Total dose= 1000 mL; Instill ~ 300 mL at a time, and retain for 15-20 minutes each lactulose solution 10 g (CHRONULAC) Given 11/13/2021 1:36 PM CDT 10 g 10 g, gastric tube, 3 times daily, First dose (after last modification) on Wed11/12/21 at 2100 Given 11/13/2021 9:24 AM CDT 10 g Given 11/12/2021 8:30 PM CDT 10 g lactulose solution 10 g (CHRONULAC) Given 11/24/2021 10:13 AM CDT 10 g 10 g, gastric tube, 3 times daily, First dose (after last modification) on Wed11/18/21 at 2100 Given 11/23/2021 3:17 PM CDT 10 g Given 11/23/2021 8:35 AM CDT 10 g lactulose solution 10 g (CHRONULAC) Given 11/26/2021 9:24 AM CDT 10 g 10 g, oral, 3 times daily, First dose (after last modification) on Wed11/24/21 at 1400 Given 11/25/2021 9:23 PM CDT 10 g Given 11/25/2021 1:02 PM CDT 10 g lactulose solution 20 g (CHRONULAC) Given 11/18/2021 1:16 PM CDT 20 g 20 g, gastric tube, 3 times daily, First dose (after last modification) on Wed11/13/21 at 2100 Given 11/17/2021 3:53 PM CDT 20 g Given 11/17/2021 12:20 PM CDT 20 g lansoprazole suspension 30 mg (PREVACID) Given 11/23/2021 9:50 AM CDT 30 mg 30 mg, gastric tube, Daily before breakfast, First dose on Wed11/13/21 at 0700 Given 11/22/2021 6:05 AM CDT 30 mg Given 11/21/2021 11:36 AM CDT 30 mg lidocaine (PF) 10 mg/mL (1 %) injection Given 11/18/2021 3:37 5. 5 mL Abdominal (XYLOCAINE) PM CDT Tissue Code/trauma/sedation medication, Starting on Wed11/18/21 at 1537 lidocaine 10 mg/mL (1 %) injection Given 11/18/2021 4:10 2 mL Right Upper (XYLOCAINE) PM CDT Abdomen Code/trauma/sedation medication, Starting on Wed11/18/21 at 1610 lidocaine 10 mg/mL (1 %) injection (XYLO CURT) Given 11/24/2021 1:05 PM CDT 6 mL Code/trauma/sedation medication, Starting on Wed11/24/21 at 1305 lidocaine 5 % 1 patch Medication Applied 11/25/2021 11:58 PM CDT 1 pa tch Flank (LIDODERM) 1 patch, transdermal, Administer over 12 Hours, Daily at bedtime, First dose on Wed11/25/21 at 2330, Remove after 12 hours. LORazepam injection 1 mg (ATIVAN) Given 11/14/2021 4:33 PM CDT 1 mg 1 mg, intravenous, Once, On Wed11/14/21 at 1630, For 1 dose, For intravenous use, dilute with equal volume of 0.9% NS LORazepam tablet 1 mg (ATIVAN) Given 11/18/2021 2:24 PM CDT 1 mg 1 mg, gastric tube, Once as needed, other, before paracentesis, Starting on Wed11/18/21 at 1205, For 1 dose magnesium sulfate in D5W IVPB 1 g New Bag 11/15/2021 12:30 AM CDT 1 g 100 mL/hr 1 g, intravenous, at 100 mL/hr, Administer over 60 Minutes, Once, On Wed11/14/21 at 2315, For 1 dose melatonin tablet 5 mg Given 11/25/2021 12:20 AM CDT 5 mg 5 mg, oral, Bedtime PRN, sleep, Starting on Wed11/25/21 at 0012 multivitamin/mineral- tablet 1 Given 11/26/2021 9:24 AM CDT 1 tablet tablet 1 tablet, oral, Daily, First dose (after last modification) on Wed11/24/21 at 1015 Given 11/25/2021 8:11 AM CDT 1 tablet Given 11/24/2021 10:16 AM CDT 1 tablet ondansetron (PF) injection 4 mg (ZOFRAN) Given 11/22/2021 11:06 AM CDT 4 mg 4 mg, intravenous, Every 6 hours PRN, nausea, vomiting, Starting on Wed11/16/21 at 0928 Given 11/21/2021 6:04 PM CDT 4 mg Given 11/19/2021 11:10 PM CDT 4 mg ondansetron ODT disintegrating tablet 4 mg (ZOFRAN-ODT) 4 mg, oral, Every 8 hours PRN, nausea, v omiting, Starting on Wed11/26/21 at 0448, When splitting ODT at bedside, handle wi th gloves and a pill splitter to prevent moisture contact. pantoprazole DR tablet 40 mg (PROTONIX) Given 11/26/2021 6:09 AM CDT 40 mg 40 mg, oral, Daily before breakfast, First dose on Wed11/25/21 at 0700, Swallow whole. Do NOT crush, chew, or split tablet. prochlorperazine injection 5 mg (COMPAZI NE) Given 11/17/2021 4:08 PM CDT 5 mg 5 mg, intravenous, Once, On Wed11/17/21 at 1545, For 1 dose rifAXIMin sugar-free suspension 550 mg Given 11/23/2021 8:35 AM CDT 550 mg (XIFAXAN) 550 mg, gastric tube, 2 times daily, First dose on Wed11/12/21 at 2100, Shake Well, Indications: Hepatic Encephalopathy Given 11/22/2021 8:50 PM CDT 550 mg Given 11/22/2021 8:44 AM CDT 550 mg rifAXIMin tablet 550 mg (XIFAXAN) Given 11/26/2021 9:24 AM CDT 550 mg 550 mg, oral, 2 times daily, First dose on Wed11/24/21 at 1015, Indications: encephalopathy Given 11/25/2021 9:23 PM CDT 550 mg Given 11/25/2021 8:11 AM CDT 550 mg simethicone chewable tablet 80 mg (MYLIC ON) Given 11/25/2021 11:58 PM CDT 80 mg 80 mg, oral, 4 times daily PRN, flatulence, Starting on Wed11/25/21 at 2316 sodium chloride (PF) 0.9 % injection 1-1 00 mL Given 11/25/2021 10:21 AM CDT 50 mL 1-100 mL, intravenous, Once, On Wed11/25/21 at 1030, For 1 dose, Imaging Protocol Orders spironolactone 25 mg/5 mL suspension 100 mg Given 11/23/2021 8:35 AM CDT 100 mg (CAROSPIR) 100 mg, gastric tube, Daily, First dose on Wed11/17/21 at 1445 Given 11/22/2021 8:43 AM CDT 100 mg Given 11/21/2021 9:14 AM CDT 100 mg spironolactone tablet 100 mg (ALDACTONE) Given 11/16/2021 8:23 AM CDT 100 mg 100 mg, gastric tube, Daily, First dose (after last modification) on Wed11/13/21 at 0900, 1. Don PPE according to [facility] and Epic label. 2. If MCT oil is not provided, obtain one ENFit?? syringe with water for each pouch present. Pharmacy does not provide syringes with water. 3. Uncap each RxCrush?? pouch and syringe. Connect. 4. Inject diluent into pouch. With syringe attached, shake/invert until powder dissolves. 5. Draw fluid back into syringe. 6. Carefully disconnect to prevent leaks. 7. Administer to patient immediately (1 hour or less). Discard according to site-specific Haz Disposal procedure. Given 11/15/2021 8:54 AM CDT 100 mg Given 11/14/2021 9:09 AM CDT 100 mg spironolactone tablet 100 mg (ALDACTONE) Given 11/26/2021 9:24 AM CDT 100 mg 100 mg, oral, Daily, First dose (after last modification) on Wed11/24/21 at 1115 Given 11/24/2021 12:01 PM CDT 100 mg thiamine 500 mg in NaCl 0.9% IVPB New Bag 11/21/2021 10:09 PM CDT 500 mg 110 mL/hr (VITAMIN B1) 500 mg, intravenous, at 110 mL/hr, Administer over 30 Minutes, 3 times daily, First dose on Wed11/20/21 at 1400, For 2 days New Bag 11/21/2021 2:40 PM CDT 500 mg 110 mL/hr New Bag 11/21/2021 9:10 AM CDT 500 mg 110 mL/hr thiamine tablet 100 mg (VITAMIN B1) Given 11/19/2021 10:40 AM CDT 100 mg 100 mg, gastric tube, Daily, First dose (after last modification) on Wed11/13/21 at 0900 Given 11/18/2021 1:17 PM CDT 100 mg Given 11/17/2021 12:16 PM CDT 100 mg thiamine tablet 100 mg (VITAMIN B1) Given 11/26/2021 9:24 AM CDT 100 mg 100 mg, oral, Daily, First dose (after last modification) on Wed11/24/21 at 1015 Given 11/25/2021 8:11 AM CDT 100 mg Given 11/24/2021 10:16 AM CDT 100 mg vitamin A 1,507 mcg (5,025 Unit)/0.05 Given 11/21/2021 9:14 AM CDT 10,050 Units mL solution 10,050 Units 10,050 Units, gastric tube, 3 times weekly (Once per day on Wed), First dose on Wed11/12/21 at 1845, For 34 doses, 1,507 mcg (5,025 Units)/0.05 mL (drop) Given 11/19/2021 10:41 AM CDT 10,050 Units Given 11/17/2021 11:56 AM CDT 10,050 Units vitamin A capsule 3,000 mcg Given 11/26/2021 9:50 AM CDT 3,000 mcg 3,000 mcg, oral, 3 times weekly (Once per day on Wed), First dose on Wed11/24/21 at 1115, For 28 doses, Vitamin A (retinol): Units x 0.3 = mcg; 10,000 Units = 3,000 mcg Vitamin A (Supplemental Beta-carotene): Units x 0.3 = mcg Vitamin A (Dietary Beta-carotene): Units x 0.05 = mcg Given 11/24/2021 12:01 PM CDT 3,000 mcg zinc sulfate capsule 220 mg (ZINCATE) Given 11/23/2021 8:35 AM CDT 220 mg 220 mg, gastric tube, Daily with breakfast, First dose (after last modification) on Wed11/13/21 at 0800, For 27 doses, Doses listed in zinc sulfate. Each 220 mg of zinc sulfate contains 50 mg of elemental zinc. Given 11/22/2021 8:44 AM CDT 220 mg Given 11/21/2021 9:14 AM CDT 220 mg zinc sulfate capsule 220 mg (ZINCATE) Given 11/26/2021 9:24 AM CDT 220 mg 220 mg, oral, Daily with breakfast, First dose (after last modification) on Wed11/24/21 at 1015, For 15 doses, Doses listed in zinc sulfate. Each 220 mg of zinc sulfate contains 50 mg of elemental zinc. Given 11/25/2021 8:11 AM CDT 220 mg Given 11/24/2021 10:14 AM CDT 220 mg documented in this encounter Active and Recently Administered Medications Times are shown in CDT. Scheduled Medication Order 11/24/2021 11/25/2021 11/26/2021 albumin human 25 % injection 50 g (COMPLETED) 1500 (Ne w Bag - Provider: [place] Toribio RGabby) 50 g, intravenous, Once, On Wed11/24/21 at 1400, For 1 dose, If no infusion rate specified: Administer the 25% solution at 100 mL/hr diclofenac sodium 1 % gel 2 g (VOLTAREN) 2358 (Given - Provider: Jo Ann Stevens RSumaNSuma) 0926 (Given - Provider: Deja Langford RSumaNSuma)1324 (Not Given - Provider: Deja Langford R.N. - Reason: Other) 2 g, topical, 4 times daily, First dose on Wed11/25/21 at 2330, Do not exceed 32 g per day, over all affected joints. Use dosing card to measure product. 2 g = 2.25 inches, 4 gm = 4.5 inches. Rinse dosi ng card after use and save for each administration. folic acid tablet 1 mg 1014 (Given - Provider: [place] vela R.N.) 0811 (Given - Provider: Deja Langford, R.N.) 0924 (Given - Provider: Deja Langford R.N.) 1 mg, oral, Daily, First dose (after last modification) on 11/24/21 at 1015 furosemide tablet 40 mg (LASIX) 1015 (Given - Provider: Aye Toribio RGabby) 0811 (Given - Provider: Deja Langford R.N.) 0924 (Given - Provider: Deja Langford R.NSuma) 40 mg, oral, Daily, First dose (after last modificatio n) on Wed11/24/21 at 1015 heparin (porcine) injection 5,000 Units 0531 (Not Give n - Provider: Heather Andrea R.N. - Reason: Patient/family refused)1503 (Given - Provider: [place] Toribio R.N.)2245 (Not Given - Provider: Jo Ann Stevens R.N. - Reason: Patient/family refused) 0549 (Given - Provider: Jo Ann hanley R.N.)1302 (Given - Provider: Deja Langford R.N.)212 (Given - Provider: Amy Zaragoza R.N.) 0609 (Given - Provider: Jo Ann hanley R.N.) 5,000 Units, subcutaneous, Every 8 hours scheduled, First dose on Wed11/18/21 at 2200 HYDROmorphone (PF) injection 0.2 mg (DILAUDID) (COMPLETED) 0549 (Given - Provider: Andrew TorresN.) 0.2 mg, intravenous, Once, On Wed11/25/21 at 0545, For 1 dose HYDROmorphone tablet 1 mg (DILAUDID) (COMPLETED) 08 (Given - Provider: Deja Langford R.NSuma) 1 mg, oral, Once, On Wed11/25/21 at 0800, For 1 dose lactulose solution 10 g (CHRONULAC) (CANCELED) 1013 (G iven - Provider: [place] Toribio R.N.) 10 g, gastric tube, 3 times daily, First dose (after last modification) on Wed11/18/21 at 2100 lactulose solution 10 g (CHRONULAC) 1506 (Not Given - Provider: [place] Toribio R.N. - Reason: Other - Comment: 6 bm's)2037 (Not Given - Provider: Jo Ann Stevens, R.N. - Reason: Contraindicated) 0812 (Not Given - Provider: Deja Langford, R.N. - Reason: Contraindicated - Comment: bm goal met)1302 (Given - Provider: Deja Langford, R.N.)212 (Given - Provider: Amy Zaragoza R.N.) 0924 (Given - Provider: Deja Langford, R.N.) 10 g, oral, 3 times daily, First dose (a fter last modification) on Wed11/24/21 at 1400 lidocaine 5 % 1 patch (LIDODERM) 2358 (M edication Applied - Provider: Jo Ann Stevens R.N.) 1157 (Medication Removed - Provider: Anat Langford R.NSmua) 1 patch, transdermal, Administer over 12 Hours, Daily at bedtime, First dose on Wed11/25/21 at 2330, Remove after 12 hours. multivitamin/mineral- tablet 1 tablet 1016 (Gi ekaterina - Provider: [place] Toribio R.N.) 0811 (Given - Provider: Deja Langford R.N.) 0924 (G iven - Provider: Deja Langford RSumaNSuma) 1 tablet, oral, Daily, First dose (after last modification) on Wed11/24/[address] tablet 40 mg (PROTONIX) 0550 (Not Given - Provider: Jo Ann Stevens R.N. - Reason: Other) 0609 (Given - Provider: Jo Ann hanley R.NSuma) 40 mg, oral, Daily before breakfast, Fir st dose on Wed11/25/21 at 0700, Swallow whole. Do NOT crush, chew, or split tablet. rifAXIMin tablet 550 mg (XIFAXAN) 1020 (Given - Provid er: [place] Toribio R.N.)2038 (Given - Provider: Jo Ann Stevens R.N.) 0811 (Given - Provider: Deja Langford R.N.)2122 (Given - Provider: Amy Zaragoza R.N.) 0924 (Given - Provider: Deja Langford R.N.) 550 mg, oral, 2 times daily, First dose on Wed11/24/21 at 1015, Indications: encephalopathy sodium chloride (PF) 0.9 % injection 1-100 mL (COMPLETED) 1021 (Given - Provider: Perri Mcintyre RSumaNSuma) 1-100 mL, intravenous, Once, On 11/25 at 1030, For 1 dose, Imaging Protocol Orders spironolactone tablet 100 mg (ALDACTONE) 1201 (Given - Provider: Berumen M Catarino, R.N.) 0811 (Not Given - Provider: Deja son R.N. - Reason: See Provider Order - Comment: held per provider due to hypotension) 0924 (Given - Provider: Deja Langford, R.N.) 100 mg, oral, Daily, First dose (after l ast modification) on Wed11/24/21 at 1115 thiamine tablet 100 mg (VITAMIN B1) 1016 (Given - Prov ider: [place] Toribio RGabby) 0811 (Given - Provider: Deja Langford, R.N.) 0924 (Tristan iven - Provider: Deja Langford, R.N.) 100 mg, oral, Daily, First dose (after l ast modification) on Wed11/24/21 at 1015 vitamin A capsule 3,000 mcg 1201 (Given - Provider: [place] trujillo R.N.) 0950 (Given - Provider: Deja Langford, R.N.) 3,000 mcg, oral, 3 times weekly (Once pe day on Wed), First dose on Wed11/24/21 at 1115, For 28 doses, Vitamin A (retinol): Units x 0.3 = mcg; 10,000 Units = 3,000 mcg Vitamin A (Supplemental B eta-carotene): Units x 0.3 = mcg Vitamin A (Dietary Beta-carotene): Units x 0.05 = mcg zinc sulfate capsule 220 mg (ZINCATE) 1014 (Given - Pr ovider: [place] Toribio RGabby) 0811 (Given - Provider: Deja Langford, R.N.) 0924 (Tristan ivemily - Provider: Deja Langford, R.N.) 220 mg, oral, Daily with breakfast, Firs t dose (after last modification) on Wed11/24/21 at 1015, For 15 doses, Doses listed in zinc sulfate. Each 220 mg of zinc sulfate contains 50 mg of elemental zinc. PRN Medication Order 11/24/2021 11/25/2021 11/26/2021 iohexoL 350 mg iodine/mL solution 1-200 mL (OMNIPAQUE) (COMP LETED) 1022 (Given - Provider: Perri Mcintyre R.NSuma) 1-200 mL, intravenous, Once in imaging, contrast, Starting on Wed11/25/21 at 1015, For 1 dose, Imaging Protocol Orders, Dose per Radiant Medication Guidelines lactulose in sterile water 200 gram/1000 mL enema 1,000 mL 1,000 mL, rectal, Daily PRN, constipatio n, Starting on Wed11/16/21 at 1002, Total dose= 1000 mL; Instill ~ 300 mL at a time, and retain for 15-20 minutes each lidocaine 10 mg/mL (1 %) injection (XYLOCAINE) (COMPLE EUGENE) 1305 (Given - Provider: Bernardo Angulo M.D. - Comment: abdomen) Code/trauma/sedation medication, Starting on Wed11/24/21 at 1305 melatonin tablet 5 mg 0020 (Given - Provider: [facility] nataliia Stevens R.N.) 5 mg, oral, Bedtime PRN, sleep, Starting on Wed11/25/21 at 0012 ondansetron (PF) injection 4 mg (ZOFRAN) 4 mg, intravenous, Every 6 hours PRN, na usea, vomiting, Starting on Wed11/16/21 at 0928 ondansetron ODT disintegrating tablet 4 mg (ZOFRAN-ODT) 4 mg, oral, Every 8 hours PRN, nausea, v omiting, Starting on Wed11/26/21 at 0448, When splitting ODT at bedside, handle with gloves and a pill splitter to prevent moisture contact. simethicone chewable tablet 80 mg (MYLICON) 5888 (Given - Provider: Jo Ann Stevens R.N.) 80 mg, oral, 4 times daily PRN, flatulence, Starting on 11/25 at 2316 documented in this encounter Additional Health Concerns Infection Onset Date Last Indicated Resolved Time COVID19 Pending 11/12/2021 11/12/2021 11/12/2021 4:20 AM CDT [id number]: Patients who are NOT sev erely immunocompromised: Asymptomatic - At least 10 days have passed since the date of the first positive PCR test 11/12/2021 11/12/2021 11/13/2021 3:19 PM CDT and Patient has remained asymptomatic throughout their infection Assessment Noted Time PHQ-9 Depression Total Score: 10 10/06/2021 5:00 PM CD T documented as of this encounter Care Teams Programming Intern Relationship Specialty Start Date End Date Elsewhere, Pcp PCP - General Family Medicine 03/10/20 11/30/21 [facility] 08/25/21 Ervin Schroeder MD Referring Provider Family Medicine 03/24/[address] [place] [id number] documented as of this encounter
--- OUTSIDE RECORDS SUMMARY | 2021-12-28 23:27 | XMS_ITS | Encounter Summary ---
:1990 Author Organization [facility] Address [address] [place] [address] Care Team Providers Name Role Phone Elsewhere, Pcp Primary Care Provider Unavailable Reason for Visit Reason Comments Follow up on caregiver plan Encounter Details Date Type Department Care Team Description 10/20/2021 Clinical Ramirez Santana, Follow up on Communication Center for Joel Gannon caregiver plan Transplantation and L.I.C.S.W., Clinical Regeneration M.S.W. in [address] [place] [address] [place], [place] [phone] (Work) [phone] Social History Tobacco Use Types Packs/Day Years Used Date Smoking Tobacco: Every Day Cigarettes 1 12 S tarted: 05/03/2009 Smokeless Tobacco: Never Comments: 2-3 cpd since [...] do you attend faith or Never 2021 scientology services? Do you belong to any clubs or No 07/17/2021 organizations such as faith groups, unions, [employer] Systems or athletic groups, or school groups? How [...] place to sleep or slept in a half-way (including now)? Education Answer Date Recorded What is the highest level of school Associate degree: ruth barker, 07/16/2021 you have completed or the highest technical, or vocational p rolf degree you have received? 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 - 10/20/2021 12:03 PM CDT I recently met with the patient on 09/30/2021 at which time I completed a psychosocial assessment and education visit as part of the patient's comprehensive evaluation for liver transplantation. The patient was assigned a PACT score of 1 due to her need to be further evaluated by Transplant Pain Psychiatry, Transplant Addictions Psychiatry, Transplant Mood Psychiatry, need to quit smoking cigarettes and need to solidify her caregiver plan post- transplant and to her have caregivers vetted by Transplant Social Work. The patient met with Dr. Radhames Neumann with Transplant Pain Psychiatry on 10/06/2021 at which time she further assessed the patient's chronic pain. Dr. Neumann recommended the patient participate in the virtual Complex Persistent Pain Program. The patient with with Dr. Adeline Frazier with Transplant Addictions Psychiatry on 10/10/2021 at which time she recommended the patient complete the transplant center protocol for individuals with asubstance use disorder who are interested in pursuing solid organ transplantation which includes thefollowin) Complete abstinence from alcohol, tobacco, cannabis, prescription opiates, sedatives/benozodiaspeines, and all other substances of abuse. 2) Outpatient level dual-diagnosis addiction treatment to develop relapse prevention skills. 3) Engagement in AA meetings (or other approved recovery meetings) at minimum once weekly. 4) Obtain and utilize a recovery sponsor. 5) Follow plan of care for chronic pain management per Dr. Radhames Neumann in [facility] (Pain Rehabilitation) - virtual Complex Persistent Pain Program (CPPP), a 4-hour group-based psychoeducation course that addressed central sensitivity, neuroplasticity, and evidence-based behavioral strategies to enhance functioning; - opioid taper and discontinuation under care of her local prescribing provider. Dr. Frazier has also assigned the patient a PACT score of 1, however did outline in her note positive or protective factors for consideration of the patient for the Exceptions Pathway. The patient is scheduled to meet with Transplant Mood Psychiatry on 10/22/2021 via telehealth/video visit at which time they will further assess her mood and coping. I had sent the patient a portal message on 09/30/2021 in order to follow up on her caregiver plan. Idid not hear back from her and then sent her a second message via the patient portal on 10/13/2021 in order to follow up on her caregiver plan. I also did not receive a return message from the patient.Her medical record indicates both of these messages have been read. I called the patient on 10/17/2021 (cell phone: [phone]) to attempt to follow up on her caregiver plan for the post-transplant recovery period. I was unable to reach the patient and left her a voice mail message requesting she call me back. I did not hear back from the patient and called her again this morning. I was again not able to reach her and have left a second voice mail message requesting she call me back. Her medical record indicates she is accepting of detailed voice mail messages, therefore I informed her in both voice mail messages that I was calling to follow up on her caregiver plan. I will await a return telephone call or portal message from the patient in regards to her caregiver plan for the post-transplant recovery period. Once additional caregivers have been identified by the patient, her caregivers will need to be vetted by Transplant Social Work. documented in this encounter Plan of Treatment Upcoming Encounters Date Type Specialty Care Team Description 01/07/2022 Office Visit Community Internal Medicine Ranjit Red P.A.-C. [address] [place] [address] [phone] (Wo rk) 01/12/2022 Appointment Laboratory Medicine Matthew Jerome M.B.B.S., M.D. [address] [place] [phone] (Wo rk) 01/12/2022 Appointment Laboratory Medicine Adeline Frazier M.D., Ph.D. [address] [place] [phone] (Wo rk) 01/13/2022 Telemedicine Transplant Joel Tan L.I.C.SAgnes., M.S. W. [address] [place] [phone] (Wo rk) 01/13/2022 Telemedicine Transplant Matthew Jerome M.B.B.S., M.D. [address] [place] [phone] (Wo rk) 01/13/2022 Telemedicine Transplant Adeline Frazier M.D., Ph.D. [address] [place] [phone] (Wo rk) 01/28/2022 Office Visit Gastroenterology and Matthew Jerome, Hepatology Lilian Santillan [address] [place] [phone] (Wo rk) Scheduled Procedures Name Priority Associated [...] documented as of this encounter Care Teams Put In Beat Adjuster Relationship Specialty Start Date End Date Elsewhere, Pcp PCP - General Family Medicine 03/10/20 11/30/21 [facility] 08/25/21 Ervin Schroeder MD Referring Provider Family Medicine 03/24/[address] [place] [address] documented as of this encounter
--- OUTSIDE RECORDS SUMMARY | 2021-12-28 23:27 | XMS_ITS | Encounter Summary ---
:1990 Author Organization [facility] Address [address] [place] [address] Care Team Providers Name Role Phone Elsewhere, Pcp Primary Care Provider Unavailable Encounter Details Date Type Department Care Team Description 10/31/2021 Orders Only Department of Mousa, Matthew Y, Cirrhosis Al coholic ([facility]) (Primary Dx); Gastroenterology in M.Tristan, Joshua Kruger. Defect Coagulation ([facility]) [place], [place] 1025 [facility] 1025 [facility] [place] [phone] Social History Tobacco Use Types Packs/Day Years [...] or relatives? How often do you attend denominational or Never 2021 jehovah's witness services? Do you belong to any clubs or No 07/17/2021 organizations such as denominational groups, unions, [email or web address] or athletic groups, or school groups? How [...] place to sleep or slept in a usp (including now)? Education Answer Date Recorded What is the highest level of school Associate degree: ruth barker, 07/16/2021 you have completed or the highest technical, or vocational p rolf degree you have received? 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 [address] [place] [phone] (Wo rk) 01/12/2022 Appointment Laboratory Medicine Matthew Jerome M.B.BSumaS., M.D. 10[address] [place] [phone] (Wo rk) 01/12/2022 Appointment Laboratory Medicine Adeline Frazier M.D., Ph.D. [address] [place] [address] [phone] (Wo rk) 01/13/2022 Telemedicine Transplant Joel Tan L.I.C.S.W., M.S. W. [address] [place] [phone] (Wo rk) 01/13/2022 Telemedicine Transplant Matthew Jerome M.B.B.S., M.Slick. [address] [place] [address] [phone] (Wo rk) 01/13/2022 Telemedicine Transplant Adeline Frazier M.D., Ph.D. [address] [place] [phone] (Wo rk) 01/28/2022 Office Visit Gastroenterology and Matthew Jerome, Hepatology Tyrell, M.Slick. [address] [place] [phone] (Wo rk) Scheduled Procedures Name Priority Associated Diagnoses Date/Time ESOPHAGOGASTRODUODENOSCOPY Cirrhosis Alc oholic (HCC) Hypertension Portal (HCC) ESOPHAGOGASTRODUODENOSCOPY Cirrhosis Alc oholic (HCC) Ascites Anemia Macrocytic Thrombocytopenia (HC C) Deficiency Coagulation Acquired (HCC) documented as of this encounter Visit Diagnoses Diagnosis Cirrhosis Alcoholic (HCC) - Primary Defect Coagulation (HCC) documented in this encounter Additional Health Concerns Assessment Noted Time PHQ-9 Depression Total Score: 10 10/06/2021 5:00 PM CD T documented as of this encounter Care Teams Cleaner Furniture Relationship Specialty Start Date End Date Elsewhere, Pcp PCP - General Family Medicine 03/10/20 11/30/21 [facility] [place] [facility] 08/25/21 Ervin Schroeder MD Referring Provider Family Medicine 03/24/[address] [place] [phone] documented as of this encounter
--- OUTSIDE RECORDS SUMMARY | 2021-12-28 23:27 | XMS_ITS | Encounter Summary ---
:1990 Author Organization [facility] Address [address] [place] [address] Care Team Providers Name Role Phone Elsewhere, Pcp Primary Care Provider Unavailable Reason for Referral Transplant (Routine) - Authorized Specialty Diagnoses / Procedures Referred By Contact Refer red To Contact Transplant Surgery / Joel Tan [facility] Transplant Shala, M.S.W. [address] [place] [phone] Referral ID Status Reason Start Date Expiration Date Visits V isits Requested Authorized [id number] Authorized 10/29/2021 10/29/2022 1 1 Scheduling Instructions Please schedule a 60 min visit for me to meet with the patient when she returns in the future for pre-transplant follow up. Thank you. Encounter Details Date Type Department Care Team Description 10/29/2021 Orders Only Department of Social Work Rajiv Tan, in NorvellGricelda, M.S.W. 200 [facility] 200 [place] [phone] [place] [address] [phone] (Wo rk) Social History Tobacco Use Types [...] or relatives? How often do you attend sikhism or Never 2021 judaism services? 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 300 [facility] [place] [phone] (Wo rk) 01/12/2022 Appointment Laboratory Medicine Matthew Jerome M.B.B.S., Lilian [address] [place] [phone] (Wo rk) 01/12/2022 Appointment Laboratory Medicine Adeline Frazier M.D., Ph.D. [address] [place] [phone] (Wo rk) 01/13/2022 Telemedicine Transplant Joel Tan L.I.C.S.W., M.S. W. [address] [place] [phone] (Wo rk) 01/13/2022 Telemedicine Transplant Matthew Jerome M.B.B.S., MSumaDSuma [address] [place] [phone] (Wo rk) 01/13/2022 Telemedicine Transplant Adeline Frazier M.D., Ph.D. [address] [place] [phone] (Wo rk) 01/28/2022 Office Visit Gastroenterology and Matthew Jerome, Hepatology Tyrell, MJules [address] [place] [phone] (Wo rk) Scheduled Procedures Name Priority Associated Diagnoses Date/Time ESOPHAGOGASTRODUODENOSCOPY Cirrhosis Alc oholic (HCC) Hypertension Portal (HCC) ESOPHAGOGASTRODUODENOSCOPY Cirrhosis Alc oholic (HCC) Ascites Anemia Macrocytic Thrombocytopenia (HC C) Deficiency Coagulation Acquired (HCC) Scheduled Referrals Name Type Priority Associated Order Schedule Diagnoses Transplant Liver Outpatient Referral Routine Expe cted: office visit 01/29/2022 (clinic) (Approximate), Expires: 01/29/2023 documented as of this encounter Visit Diagnoses Not on filedocumented in this encounter Additional Health Concerns Infection Onset Date Last Indicated Resolved Time COVID19 Pending 11/12/2021 11/12/2021 11/12/2021 4:20 AM CDT [id number]: Patients who are NOT sev erely immunocompromised: Asymptomatic - At least 10 days have passed since the date of the first positive PCR test 11/12/2021 11/12/2021 11/13/2021 3:19 PM CDT and Patient has remained asymptomatic throughout their infection Assessment Noted Time PHQ-9 Depression Total Score: 10 10/06/2021 5:00 PM CD T documented as of this encounter Care Teams Line Server Relationship Specialty Start Date End Date Elsewhere, Pcp PCP - General Family Medicine 03/10/20 11/30/21 [facility] [place] [facility] 08/25/21 Ervin Schroeder MD Referring Provider Family Medicine 03/24/[address] [place] [phone] documented as of this encounter
--- OUTSIDE RECORDS SUMMARY | 2021-12-28 23:27 | XMS_ITS | Encounter Summary ---
:1990 Author Organization [facility] Address [address] [place] [address] Care Team Providers Name Role Phone Elsewhere, Pcp Primary Care Provider Unavailable Reason for Visit Reason Comments Appointment [facility] Encounter Details Date Type Department Care Team Description 10/10/2021 Clinical Ramirez Barajas, Camron coreas ([facility] Communication Center for PRANEETH Rowland) Transplantation and Lilian, Ph.D. Clinical [facility] [address] [facility] [address] [facility] [phone] Social History Tobacco Use Types Packs/Day Years [...] or relatives? How often do you attend alevism or Never 2021 methodist services? Do you belong to any clubs or No 07/17/2021 organizations such as alevism groups, unions, fratydy or athletic groups, or school groups? How [...] place to sleep or slept in a assisted (including now)? Education Answer Date Recorded What is the highest level of school Associate degree: ruth barker, 07/16/2021 you have completed or the highest technical, or vocational p rolf degree you have received? 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 Please advise we are able to proceed with scheduling from a financial standpoint. Thank you! documented in this encounter Plan of Treatment Upcoming Encounters Date Type Specialty Care Team Description 01/07/2022 Office Visit Community Internal Medicine Ranjit Red P.A.-C. 300 [place] [phone] (Wo rk) 01/12/2022 Appointment Laboratory Medicine Matthew Jerome M.B.B.S., MJules 10[address] [place] [phone] (Wo rk) 01/12/2022 Appointment Laboratory Medicine Adeline Frazier M.D., Ph.D. [address] [place] [phone] (Wo rk) 01/13/2022 Telemedicine Transplant Joel Tan L.I.C.S.W., M.S. W. [address] [place] [phone] (Wo rk) 01/13/2022 Telemedicine Transplant Matthew Jerome M.B.B.S., MJules [address] [place] [phone] (Wo rk) 01/13/2022 Telemedicine Transplant Adeline Frazier M.D., Ph.D. [address] [place] [phone] (Gwendolyn rk) 01/28/2022 Office Visit Gastroenterology and Matthew Jerome, Hepatology Tyrell, MJules [address] [place] [phone] (Wo rk) Scheduled Procedures Name [...] as of this encounter Care Teams Director Regulatory Compliance Relationship Specialty Start Date End Date Elsewhere, Pcp PCP - General Family Medicine 03/10/20 11/30/21 [facility] 08/25/21 Ervin Schroeder MD Referring Provider Family Medicine 03/24/[address] [place] [phone] documented as of this encounter
--- OUTSIDE RECORDS SUMMARY | 2021-12-28 23:27 | XMS_ITS | Encounter Summary ---
:1990 Author Organization [facility] Address [address] [place] [address] Care Team Providers Name Role Phone Elsewhere, Pcp Primary Care Provider Unavailable Reason for Visit Reason Comments External Lab Entry 10/25/2021 Encounter Details Date Type Department Care Team Description 10/28/2021 Clinical Ramirez Nguyen Transplant, Binder Folder Operator al Lab Entry Communication Center for Coordinator, (10/25/2021/) Transplantation and R.N. Clinical Regeneration in [facility] continuous process tanner rotary drum [address] [place] [phone] Social History Tobacco Use Types Packs/Day Years [...] or relatives? How often do you attend jain or Never 2021 gnosticist services? Do you belong to any clubs or No 07/17/2021 organizations such as jain groups, unions, fra[employer]oss [employer] or athletic groups, or school groups? [...] to sleep or slept in a senior living (including now)? Education Answer Date Recorded What is the highest level of school Associate degree: ruth barker, 07/16/2021 you have completed or the highest technical, or vocational p [facility] degree you have received? 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 - 10/29/2021 1:45 PM CDT Noted Telephone Encounter - Matthew Jerome M.B.B.S., M.D. - 10/28/2021 11:36 PM CDT Thanks Laney I reviewed them, no further action is needed at this time. Matthew Telephone Encounter - Laney French M.A.N., RSumaN., C.C.T.C. - 10/28/2021 8:01 AM CDT Please review labs below. Catia who is being followed for alcohol and currently deferred. Labs: Recent Labs 10/25/21 0718 09/30/21 0739 09/30/21 0738 09/30/21 0737 09/19/21 1332 08/28/21 1701 08/26/21 0612 08/11/21 1151 08/03/21 0427 08/02/21 2244 ALT 27 -- 34 -- -- -- 21 -- 23 27 AST 72 -- 78 H -- -- -- 45 H -- 62 H 69 H CREATININE 0.97 -- 0.74 -- 0.68 -- -- 0.71 -- 0.56 L BILITOT 22.9 -- 12.1 H -- -- -- 9.8 H -- 9.0 H 10.6 H HGB 8.6 L 8.9 L -- -- -- -- 7.5 L -- 7.5 L 7.8 L HCT 26.2 L 26.1 L -- -- -- -- 21.6 L -- 21.7 L 22.8 L WBC 11.5 H 7.6 -- -- -- -- 5.2 -- 5.1 5.4 NEUTROPHILS 8.5 H 4.89 -- -- -- -- -- -- -- 3.41 PLT 78 L 69 L -- -- -- -- 61 L -- 63 L 60 L NA 133 -- 126 L -- -- -- -- 133 L -- 132 L GLUCOSE 101 -- 107 -- -- -- -- 141 H -- 135 HGBA1C -- <4.0 L -- -- -- -- -- -- -- -- BUN 25 -- 13 -- -- -- -- 10 -- 9 ALKPHOS 235 -- 205 H -- -- -- 135 -- 155 H 168 H GGT -- -- 52 H -- -- -- -- -- -- -- PT 33.9 H -- -- 28.8 H -- 25.9 H 29.9 H -- -- 29.9 H INR 3.5 H -- -- 2.6 -- 2.2 3.0 H -- -- 2.6 ALBUMIN 2.6 -- 3.7 -- -- -- 3.0 L -- 3.0 L 3.3 L Please advise on any changes or recommendations. Thanks, Chano Abraham, Myrtle, C.CSumaTSumaC. *All labs are now found in [employer] - Lab - Flowsheets. For further review of labs, please review there or under Synopsis* documented in this encounter Plan of Treatment Upcoming Encounters Date Type Specialty Care Team Description 01/07/2022 Office Visit [facility] Internal Medicine Ranjit Red P.A.-C. [address] [place] [phone] (Wo rk) 01/12/2022 Appointment Laboratory Medicine Matthew Jerome M.B.B.SSuma, M.D. [address] [place] [phone] (Gwendolyn rk) 01/12/2022 Appointment Laboratory Medicine Adeline Frazier M.D., Ph.D. [address] [place] [phone] (Wo rk) 01/13/2022 Telemedicine Transplant Joel Tan L.I.C.SSumaW., M.S. W. [address] [place] [phone] (Wo rk) 01/13/2022 Telemedicine Transplant Matthew Jerome M.B.B.SSuma, M.D. [address] [place] [phone] (Wo rk) 01/13/2022 Telemedicine Transplant Adeline Frazier M.D., Ph.D. [address] [place] [phone] (Wo rk) 01/28/2022 Office Visit Gastroenterology and Matthew Jerome, Hepatology Tyrell, Callie. [address] [place] [phone] (Wo rk) Scheduled Procedures Name Priority Associated Diagnoses Date/Time ESOPHAGOGASTRODUODENOSCOPY Cirrhosis Alc oholic (HCC) Hypertension Portal (HCC) ESOPHAGOGASTRODUODENOSCOPY Cirrhosis Alc oholic (HCC) Ascites Anemia Macrocytic Thrombocytopenia (HC C) Deficiency Coagulation Acquired (HCC) documented as of this encounter Procedures Procedure Name Priority Date/Time Associated Diagnosis Comme nts EXTP Routine 10/25/2021 7:18 AM Results f or this TRANSPLANT/HEART - CDT procedure are in BLOOD, EXTERNAL LAB the resu lts RESULTS section. documented in this encounter Results Transplant/Heart - Blood, External Lab Results (10/25/2021 7:18 AM CDT) P athologist Signature EXT Glucose 101 SCANNED REPORT [...] City/State/ZIP Code Phon e Number SCANNED REPORT documented in this encounter Visit Diagnoses Not on filedocumented in this encounter Additional Health Concerns Assessment Noted Time PHQ-9 Depression Total Score: 10 10/06/2021 5:00 PM CD T documented as of this encounter Care Teams Gravity Meter Operator Relationship Specialty Start Date End Date Elsewhere, Pcp PCP - General Family Medicine 03/10/20 11/30/21 [facility] 08/25/21 Ervin Schroeder MD Referring Provider Family Medicine 03/24/[address] [place] [phone] documented as of this encounter
--- OUTSIDE RECORDS SUMMARY | 2021-12-28 23:27 | XMS_ITS | Encounter Summary ---
:1990 Author Organization [facility] Address [address] [place] [address] Care Team Providers Name Role Phone Elsewhere, Pcp Primary Care Provider Unavailable Reason for Visit Reason Comments Vitamin K Encounter Details Date Type Department Care Team Description 10/31/[address] [facility] PRE/POS T Alina Carranza, Vitamin K [address] [place] [address] [phone] Social History Tobacco Use Types Packs/Day Years [...] or relatives? How often do you attend holiness or Never 2021 faith services? Do you belong to any clubs or No 07/17/2021 organizations such as holiness groups, unions, fraternal or athletic groups, or [...] place to sleep or slept in a longterm (including now)? Education Answer Date Recorded What is the highest level of school Associate degree: ruth barker, 07/16/2021 you have completed or the highest technical, or vocational p rolf degree you have received? 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 - 10/31/2021 4:22 PM CDT This handbook writer contacted [facility] in [facility], spoke to Perri. Prescription for Vitamin K was received and has not been entered. Perri stated prescription will be ready and patient will be notified by pharmacy via notification system. This handbook writer sent patient a message via portal. Telephone Encounter - Alina Carranza RSumaNSuma - 10/31/2021 4:09 PM CDT Patient states she has not received a message from her pharmacy that the vitamin K prescription was filled. She is concerned that Dr. Jerome wanted her to take it prior to her EGD on Wednesday. It looks like the order was sent today by him. Please verify and notify patient. Thank you. documented in this encounter Plan of Treatment Upcoming Encounters Date Type Specialty Care Team Description 01/07/2022 Office Visit [facility] Ranjit Red P.A.-C. [address] [place] [phone] (Wo rk) 01/12/2022 Appointment Laboratory Medicine Matthew Jerome M.B.B.SSuma, M.D. [address] [place] [phone] (Gwendolyn rahman) 01/12/2022 Appointment Laboratory Medicine Adeline Frazier M.D., Ph.D. [address] [place] [address] [phone] (Gwendolyn rahman) 01/13/2022 Telemedicine Transplant Joel Tan L.I.C.SSumaW., M.S. W. [address] [place] [address] [phone] (Wo lacey) 01/13/2022 Telemedicine Transplant Matthew Jerome M.B.B.SSuma, M.D. [address] [place] [phone] (Gwendolyn rahman) 01/13/2022 Telemedicine Transplant Adeline Frazier M.D., Ph.D. [address] [place] [address] [phone] (Gwendolyn rahman) 01/28/2022 Office Visit Gastroenterology and Matthew Jerome, Hepatology VikBSumaSSuma, M.DSuma [address] [place] [phone] (Gwendolyn rahman) Scheduled Procedures Name Priority [...] documented as of this encounter Care Teams Clerical Grader Relationship Specialty Start Date End Date Elsewhere, Pcp PCP - General Family Medicine 03/10/20 11/30/21 [facility] 08/25/21 Ervin Schroeder MD Referring Provider Family Medicine 03/24/[address] [place] [address] [phone] documented as of this encounter
--- OUTSIDE RECORDS SUMMARY | 2021-12-28 23:27 | XMS_ITS | Encounter Summary ---
:1990 Author Organization [facility] Address [address] [place] [address] Care Team Providers Name Role Phone Elsewhere, Pcp Primary Care Provider Unavailable Encounter Details Date Type Department Care Team Description 10/15/2021 Documentation Department of Gastroenterology [place], in [place], Kaelyn Santillan, M.D. [address] [facility] [address] [place] [address] [place], [place] [phone] Social History Tobacco Use Types Packs/Day [...] do you attend christianity or Never 2021 adventist services? Do you belong to any clubs or No 07/17/2021 organizations such as christianity groups, unions, [employer] or athletic groups, or school groups? 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 - 10/15/2021 2:44 PM CDT Liver Transplant Evaluation form - Demographics Name: Catia Carias #: [id number] Age: 31 Litigation Docket Manager: Date Presented: ABO: B+ Gender: F Race: BMI: 24 Height (cm): 159 Weight (kg): 61 Referral Residence: [place], [place] Referral Source: [facility] Diagnosis (Check all that apply) XAlcohol ? PSC ? HCC ? HPS ? Budd Chiari ? FHF ? Biliary Atresia ? HCV ? PBC ? CCA ? PoPH ? Hemo-chromatosis ? PNF ? PFIC ? HBV ? AIH ? Neuro Endocrine Tumor ? FAP ? [id number] ? HAT ? Cystic Fibrosis ? MEJIA ? Overlap Syndrome ? Hemangio-endothelioma ? Hyper-oxaluria ? Bhavin ? Cholangio-ady ? Histiocytosis ? Crypto ? Adeno-matosis ? Polycystic ? HHT ? Chronic Rejection ? Glycogen storage ? HRS ? Hepato-blastoma ? Tyrosinemia ?Other: Medical Condition (Check all that apply) XHome ? Hospital ? ICU Life Support (Check all that apply) ? Ventilator ? Inotrope ? CRRT Multi-organ Transplant (Check all that apply) ? Kidney ? Heart ? Lung Surgical Concerns (Check all that apply) ? Obesity ? PVT ? Re-Transplant ? Prior surgery: Date 09/30/21 Status PSE Grade 1 Albumin 3.7 INR 2.6 Bilirubin 12 Creatinine 0.7 Total CTP # 11/C MELD-Na 32 History of Present Illness: She has a known history of alcohol related cirrhosis, portal hypertension, splenomegaly, ascites, chronic pancreatitis, GERD, anxiety, depression, migraines, tobacco use, ADHD, marijuana use and eatingdisorder between age 12 (body dysmorphia) and 30 years but intermittently. She expressed her interest in liver transplantation earlier this year 2021. She presented to the ER multiple times over the past few months, for fever, GI symptoms including abdominal pain and vomiting. In Mar 2021 she was hospitalized for HE. She also had a loud systolic murmur during the hospitalization and TTE with a bubble study showed right to left atrial shunt with severely enlarged left atrium. She was evaluated by Cardiology and there are no concerns at this time: no angina or CHF. Alcohol related history per patient today: Last alcoholic drink July 2020. Alcohol: started at age 16 just to try it, then started drinking heavily at age 19 until mid 20s, but never to the point of getting drunk every day. Mainly social not just drinking alone. More wine, could not tell how much each time she drank. Never had issues with relations, work or school. Decided to stop on her own after a trip to [place] last July 2020, but could not remember why she decided to. Prior to that she had 4 episodes of recurrent pancreatitis. She states that the 1st illness she had was after a trip to [place] when she had abdominal pain and she was found to have pancreatitis: around 2014. At that time she was told about alcohol use. Functional Status Karnofsky 70% Prior Malignancy (ID Any Type) N Portal Vein Thrombosis (Y/N) N Diabetes (Y/N) (Type) N Ascites Mild HE grade 1 SBP (Y/N) N Past Surgery: 1. None Past Medical History: 1. As above Chemical dependency: Alcohol ? No X Yes - To Be Discussed Illicit drugs/narcotics: ? No XYes - To Be Discussed - marijuana PACT Score 1/4 Tobacco ? Never ? Previous/Quit XYes/Current Family/Social Concerns: ? No X Yes - To Be Discussed : caregiver Pertinent physical examination findings: General: Patient looks cachectic, weak and has jaundice. Head/Neck: Normocephalic, atraumatic. She has scleral icterus. Neck is supple. Chest: Clear. Heart: Normal S1, S2. Abdomen: Soft, nontender, nondistended. Positive bowel sounds. Musculoskeletal: +2 lower extremity edema. Skin: jaundice. Neurologic: Cranial nerves grossly intact. No confusion. Diagnostics: Diagnostics Date liver U/S: 07/26/21 1. Hepatic steatosis and cirrhosis. 2. Cholelithiasis. 3. Mild splenomegaly and mild ascites CT a/p 09/22/21 1. Diffusely heterogeneous hepatic parenchyma with lobulated contour consistent with known history of cirrhosis. No focal hepatic mass identified. 2. Distended gallbladder containing sludge and/or small stones. No evidence for acute cholecystitis. 3. Stable splenomegaly. 4. Mild ascites, decreased since prior CT. 5. Increased peripancreatic and mesenteric edema. MRI: NA CXR: 09/22 Negative echo: 09/23/21 EF 66%, Moderate-severe bi-atrial enlargement, Positive for atrial level shunt by agitated saline contrast injection. Patent foramen ovale with [id number] shunt , 20 or greater bubbles seen in the left-sided chambers. angio: NA DSE: NA Summary: 31 yo F with decompensated alcohol related cirrhosis. Main complications: Jaundice with scleral icterus, hepatic encephalopathy, minimal/trace leg edema, mild ascites, no recent variceal bleeding, no HCC. She was first told about cirrhosis in 01/2021. Last alcoholic drink July 2020. No surgical concerns No cardiopulmonary concerns (Evaluated by Dr Wahl as well as cardiology for PFO) at this time, butneeds follow up echo after transplant and care should be taken to avoid paradoxical air emboli. Addiction psych concerns, to be discussed. documented in this encounter Plan of Treatment Upcoming Encounters Date Type Specialty Care Team Description 01/07/2022 Office Visit [facility] Ranjit Red P.A.-C. [address] [place] [phone] (Wo rk) 01/12/2022 Appointment Laboratory Medicine Matthew Jerome M.B.B.SSuma, Lilian [address] [place] [phone] (Wo rk) 01/12/2022 Appointment Laboratory Medicine Adeline Frazier M.D., Ph.D. [address] [place] [phone] (Wo rk) 01/13/2022 Telemedicine Transplant Joel Tan L.I.C.SZara, M.S. W. [address] [place] [phone] (Wo rk) 01/13/2022 Telemedicine Transplant Matthew Jerome M.B.B.SSuma, M.D. [address] [place] [phone] (Wo rk) 01/13/2022 Telemedicine Transplant Adeline Frazier M.D., Ph.D. [address] [place] [phone] (Wo rk) 01/28/2022 Office Visit Gastroenterology and Matthew Jerome, Hepatology FredySSuma, M.Jeri [address] [place] [phone] (Wo rk) Scheduled Procedures Name Priority Associated [...] documented as of this encounter Care Teams Sheet Metal Roofer Relationship Specialty Start Date End Date Elsewhere, Pcp PCP - General Family Medicine 03/10/20 11/30/21 [facility] 08/25/21 Ervin Schroeder MD Referring Provider Family Medicine 03/24/[address] [place] [phone] documented as of this encounter
--- OUTSIDE RECORDS SUMMARY | 2021-12-28 23:27 | XMS_ITS | Encounter Summary ---
:1990 Author Organization [facility] Address [address] [place] [id number] Care Team Providers Name Role Phone Elsewhere, Pcp Primary Care Provider Unavailable Reason for Visit Auth/Cert Specialty Diagnoses / Procedures Referred By Contact Refer red To Contact Diagnoses Hepatic Encephalopathy Without Coma (HCC) hepatic encephalopathy Procedures DIR Referral ID Status Reason Start Date Expiration Date Visits Requ ested Visits Authorized [id number] 1 1 Encounter Details Date Type Department Care Team Description 11/09/2021 - Hospital [facility] Ekta Rubi M.D., M.S. [address] [place] [phone] Hepatic 11/11/2021 Encounter Hospital, Jody Maria M.B., B.Chir. [address] [place] [phone] Encephalopathy [facility], Without Coma ( HCC) [place] (Primary Dx) Building, Sixth Floor [address] [place] [phone] Social History Tobacco Use Types Packs/Day [...] or relatives? How often do you attend yarsanism or Never 2021 congregation services? 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 - 11/11/2021 9:54 AM CDT DISCHARGE SUMMARY BRIEF OVERVIEW Hospital: [facility] Discharge Provider: Jody Aguilar M.B. Primary Care Provider at Discharge: Primary Care Providers: Elsewhere, Pcp (General) No address on file Primary Care Provider Phone Number: None Primary Care Provider Fax Number: None Primary Team: [facility] Gastroenterology A Admission Date: 11/09/2021 Discharge Date: 11/11/2021 PRINCIPAL DIAGNOSIS Hepatic Encephalopathy Without Coma (HCC) SECONDARY DIAGNOSES Principal Problem (Resolved): Hepatic Encephalopathy Without Coma (HCC) Active Problems: Cirrhosis Alcoholic (HCC) Anemia Ascites COVID-19 Infection Resolved Problems: Failure Renal Acute (Acute Kidney Injury) (HCC) DISCHARGE DISPOSITION Home or Self Care [1] ACTIVE ISSUES REQUIRING FOLLOW UP OUTPATIENT FOLLOW UP Scheduled Appointments 11/19/2021 3:15 PM Matthew Jerome M.B.B.S., M.D. Gastroenterology and Hepatology 11/19/2021 4:00 PM LAB 01 [facility] Laboratory Medicine 11/26/2021 4:00 PM SHADI COUNSELOR 01 MERLYN 18 Nicotine Dependence For appointment details refer to your Patient Appointment Guide. TEST RESULTS PENDING AT DISCHARGE Pending Labs Order Current Status SPSAL Result Collected (11/11/21 0952) Bacterial Culture, Aerobic + Susc In process Bacteria / Ines Culture, Blood #1 Preliminary result Bacteria / Ines Culture, Blood #2 Preliminary result DETAILS OF HOSPITAL STAY REASON FOR ADMISSION Hepatic Encephalopathy Without Coma (HCC) HOSPITAL COURSE Ms. Catia Carias is a 31 y.o. female who presents with altered mental status and jaundice in the setting of alcoholic cirrhosis (diagnosed 01/2021). PMH is otherwise significant for nicotine dependence, chronic pain syndrome, GERD, chronic pancreatitis, anemia, thrombocytopenia, anxiety, cannabis use, mood disorder. She follows with Dr. Jerome in the outpatient setting undergoing transplant evaluation. Per report, she was brought to the ED by her significant other for concerns of altered mental statusof 1-2 day duration. She had mild leukocytosis (12.8), anemia (8.2, appears chronic), thrombocytopenia (73, appears chronic), lactate elevation (3.4), hyperammonemia (174), hyponatremia (129), creatinine (2.03, normal baseline), total bili (16.8), alk phos (200), ALT (21), AST (43) Otherwise, lipase was normal, negative, ethanol normal, salicylate normal, VBG unremarkable. CXR showed pulmonary vasculature congestion and large right pleural effusion. CT head was unremarkable. CT abdomen showed moderate to large ascites, constipation with large stool burden, distended bladder. COVID swab was positive. Upon arrival, she is vitally stable on room air. She is only oriented to self and history was unableto be obtained. She was given vitamin K for elevated INR of 3.4. Paracentesis was performed to rule out SBP. While waiting for results, ciprofloxacin was started empirically. She was given albumin repletion for suspected hepatorenal syndrome. Her mental status showed improvement with lactulose. She underwent paracentesis which showed no evidence of SBP. Serum ascites albumin gradient was > 1.1g consistent with portal hypertension in the setting of her known cirrhosis. Improvement of her hepatic encephalopathy, she was deemed stable ready for discharge on 11/11/2021. Prophylactic ciprofloxacin was continued on discharge. Her renal function returned to baseline. She was resumed on her home diuretics. She was started on zinc supplementation for low serum zinc level. Continued adherence to lactulose was reinforced. PHYSICAL EXAM Constitutional General: She is not in acute distress. Cardiovascular Rate and Rhythm: Normal rate and regular rhythm. Heart sounds: No murmur heard. No friction rub. No gallop. Pulmonary Effort: Pulmonary effort is normal. No respiratory distress. Breath sounds: No wheezing. Abdominal General: There is no distension. Palpations: Abdomen is soft. Tenderness: There is no abdominal tenderness. Musculoskeletal Right lower le+ Edema present. Left lower le+ Edema present. Neurological General: No focal deficit present. Mental Status: She is alert and oriented to person, place, and time. CONSULTS ORDERED DURING THIS ADMISSION IP CONSULT TO CARE MANAGEMENT Procedures Performed: paracentesis EXAM: US PARACENTESIS WITH IMAGING GUIDANCE ?? PRE-PROCEDURE: Patient seen, evaluated, history reviewed, and approved for sedation. Airway, heart, and lung exam satisfactory for sedation. Discussed risks, benefits, alternatives for procedure, and/or sedation. The roles and responsibilities of care team members, residents, and fellows were discussed. Patient understands information and questions answered. Informed consent obtained from the patient. Immediately prior to starting the procedure, in the presence of the assisting personnel, a procedural pause was conducted to verify correct patient identity and verification of procedure to be performed, and as applicable, correct side and site, correct patient position, availability of implants, special equipment, or special requirements, and all image and specimen identification data. ?? INTRAPROCEDURE: Moderate sedation was administered by sedation nurse under my supervision. The patient was continuously monitored with real time oxygen saturation, heart rate, ECG rhythm strip and blood pressure throughout administration of the sedation and performance of the procedure. The total intra-procedural sedation time was: 45 minutes. . ?? TECHNIQUE: Sterile. 1% lidocaine for local anesthesia. Location: Right lower quadrant peritoneal space. Needle size: 5 Fr centesis catheter. Volume aspirated: 2278 cc of straw colored fluid. The tip of the catheter then adhered to an adjacent mobile loop of bowel. After multiple unsuccessful attempts at mobilizing the catheter, the catheter was removed. Only small volume ascites remaining in the peritoneal cavity. Complication: None. Blood loss: None. Purpose: Diagnostic and therapeutic. ?? PATIENT INSTRUCTIONS: Patient may be dismissed from the radiology department when dismissal criteria met. ?? POST-PROCEDURE DIAGNOSIS: Ascites. ?? IMPRESSION: Ultrasound-guided paracentesis. Latest Reference Range & Units 11/10/21 14:32 Fluid Type Peritoneal-Paracentesis Gross Appearance Serous Total Nucleated Cells /mcL 54 Neutrophils % 3 Lymphocytes Synovial <75% % 65 Monocytes/Macrophages Synovial <70% % 26 Other Cells % 6 Other Cells Are: Mesothelial cells Comment No blasts or malignant cells seen. Reviewed by: Tech Fluid Type, Protein, Total Fluid, Peritoneal Fluid Protein, Total, BF See Comment g/dL 0.7 Fluid Type, Albumin Fluid, Peritoneal Fluid Albumin BF See Comment g/dL 0.5 EXT Lipase, S Date Value Ref Range Status 11/09/2021 <5.0 (L) 8.0 - 78.0 IU/L Final EXT Leukocytes Date Value Ref Range Status 11/09/2021 12.8 (H) 4.5 - 11.0 thou/cu mm Final Leukocytes Date Value Ref Range Status 11/11/2021 7.6 3.4 - 9.6 x10(9)/L Final Erythrocytes Date Value Ref Range Status 11/11/2021 2.14 (L) 3.92 - 5.13 x10(12)/L Final EXT Erythrocytes Date Value Ref Range Status 11/09/2021 2.23 (L) 4.00 - 5.20 mil/cu mm Final Hemoglobin Date Value Ref Range Status 11/11/2021 7.4 (L) 11.6 - 15.0 g/dL Final EXT Hemoglobin Date Value Ref Range Status 11/09/2021 8.2 (L) 12.0 - 16.0 g/dL Final EXT Platelet Count Date Value Ref Range Status 11/09/2021 73 (L) 140 - 440 thou/cu mm Final Platelet Count Date Value Ref Range Status 11/11/2021 47 (L) 157 - 371 x10(9)/L Final Aspartate Aminotransferase (AST), S Date Value Ref Range Status 11/11/2021 35 8 - 43 U/L Final Alanine Aminotransferase (ALT), S Date Value Ref Range Status 11/11/2021 17 7 - 45 U/L Final Bilirubin, Total, S Date Value Ref Range Status 11/11/2021 16.6 (H) <=1.2 mg/dL Final Alkaline Phosphatase, S Date Value Ref Range Status 11/11/2021 132 (H) 35 - 104 U/L Final BUN (Blood Urea Nitrogen), S Date Value Ref Range Status 11/11/2021 20 6 - 21 mg/dL Final Creatinine, S Date Value Ref Range Status 11/11/2021 0.96 0.59 - 1.04 mg/dL Final Glucose, S Date Value Ref Range Status 11/11/2021 121 70 - 140 mg/dL Final INR Date Value Ref Range Status 11/11/2021 3.1 0.9 - 1.1 Final Comment: ----ADDITIONAL INFORMATION---- Standard intensity warfarin therapeutic range: 2.0 to 3.0 High intensity warfarin therapeutic range: 2.5 to 3.5 EXT INR, POCT, B Date Value Ref Range Status 11/09/2021 3.4 (H) <1.3 Final MEDICATIONS AT DISCHARGE Discharge Medications TAKE these medications ciprofloxacin 500 mg tablet Commonly known as: CIPRO Take 1 tablet (500 mg total) by mouth every morning before breakfast. ergocalciferol 50,000 Unit capsule Commonly known as: DRISDOL Take 50,000 Units by mouth once a week. folic acid 1 mg tablet Take 1 mg by mouth daily. furosemide 20 mg tablet Commonly known as: LASIX Take 2 tablets (40 mg total) by mouth daily. gabapentin 300 mg capsule Commonly known as: NEURONTIN Take by mouth 3 (three) times a day. Takes 600 mg in the morning, 600 mg in the afternoon, and 900 mg at bedtime. hydrOXYzine 25 mg tablet Commonly known as: ATARAX Take 25-50 mg by mouth at bedtime as needed (sleep). lactulose 10 gram/15 mL solution Commonly known as: CHRONULAC Take 15 mL (10 g total) by mouth 3 (three) times a day. Titrate to 3 soft bowel movements daily levonorgestreL 20 mcg/24 hours (7 yrs) 52 mg IUD Commonly known as: MIRENA 1 each by intrauterine route continuously. magnesium oxide 400 mg (241.3 mg magnesium) tablet Commonly known as: MAG-OX Take 1 tablet (400 mg total) by mouth 2 (two) times a day before breakfast and dinner. ondansetron ODT 8 mg disintegrating tablet Commonly known as: ZOFRAN-ODT Take 1 tablet by mouth 3 (three) times a day as needed. oxyCODONE 5 mg immediate release tablet Commonly known as: ROXICODONE Take 1 tablet (5 mg total) by mouth 3 (three) times a day as needed for pain for up to 3 days Indication: Chronic Pain/Nonacute Pain. pantoprazole 40 mg EC tablet Commonly known as: PROTONIX Take 1 tablet (40 mg total) by mouth every morning before breakfast. rOPINIRole XL 2 mg 24 hr tablet Commonly known as: REQUIP XL Take 2 mg by mouth at bedtime. spironolactone 50 mg tablet Commonly known as: ALDACTONE Take 2 tablets (100 mg total) by mouth daily. thiamine 100 mg tablet Commonly known as: VITAMIN B1 Take 100 mg by mouth daily. UNABLE TO FIND Apply 1 each topically daily. Med Name: Medical Cannabis [place] (50 mg THC/oz) 0.2% THC/CBD <0.1% UNABLE TO FIND Inhale 1 each as needed. Med Name: Medical Cannabis Flower, smoking once weekly as needed for sleep;details unclear vitamin A 3,000 mcg (10,000 Unit) capsule Take 1 capsule (3,000 mcg total) by mouth 3 (three) times a week for 50 doses. zinc sulfate 220 (50 mg zinc) capsule Commonly known as: ZINCATE Take 1 capsule (220 mg total) by mouth daily with breakfast for 28 days. CONDITION AT DISCHARGE stable Discharge instructions were provided to the patient and caregiver(s). Electronically signed by: Gerard Andino M.D., M.S. 11/11/21 11:58 AM CDT documented in this encounter Discharge Instructions Discharge InstructionsKain Chau - 11/10/2021 8:04 AM CDT You were discharged from the [facility] Gastroenterology A Service. Please identify this service name if you call with questions after hospitalization. AttachmentsThe following attachments cannot be sent through Care Everywhere.Zinc Sulfate (By mouth) ([place]otho)documented in this encounter Medications at Time of Discharge Medication Sig Dispensed Refills Start Date End Date ergocalciferol Take 50,000 Units by 0 04/01/2021 [...] for 50 doses. (HCC), Deficiency Vitamin A ciprofloxacin (CIPRO) Take 1 tablet (500 mg 28 tablet 0 04/202211/26/2021 500 mg tablet total) by mouth every morning before breakfast. furosemide (LASIX) 20 Take 2 tablets (40 mg 30 tablet 1 07/202112/10/2021 mg tablet total) by mouth daily. gabapentin (NEURONTIN) Take by mouth 3 0 05/27/19 22 11/26/2021 300 mg capsule (three) times a day. Takes 600 mg in the morning, 600 mg in the afternoon, and 900 mg at bedtime. hydrOXYzine (ATARAX) 25 Take 25-50 mg by 0 202111/26/2021 mg tablet mouth at bedtime as needed (sleep). lactulose (CHRONULAC) Take 15 mL (10 g 0 11/12/19 22 12/10/2021 10 gram/15 mL solution total) by mouth 3 (three) times a day. Titrate to 3 soft bowel movements daily magnesium oxide Take 1 tablet (400 mg 60 tablet 1 1 12/02/2021 (MAG-OX) 400 mg (241.3 total) by mouth 2 mg magnesium) tablet (two) times a day before breakfast and dinner. oxyCODONE (ROXICODONE) Take 1 tablet (5 mg 9 tablet 0 10/3111/26/2021 5 mg immediate release total) by mouth 3 tabletIndications: (three) times a day Chronic Pain/Nonacute as needed for pain Pain for up to 3 days Indication: Chronic Pain/Nonacute Pain. rOPINIRole XL (REQUIP Take 2 mg by mouth at 0 11/26/2021 XL) 2 mg 24 hr tablet bedtime. spironolactone Take 2 tablets (100 30 tablet 1 08/03/2021 0 12/10/2021 (ALDACTONE) 50 mg mg total) by mouth tablet daily. UNABLE TO FIND Apply 1 each 0 11/27/19 topically daily. Med Name: Medical Cannabis [place] (50 mg THC/oz) 0.2% THC/CBD <0.1% UNABLE TO FIND Inhale 1 each as 0 11/01 needed. Med Name: Medical Cannabis Flower, smoking once weekly as needed for sleep; details unclear zinc sulfate (ZINCATE) Take 1 capsule (220 28 capsule 0 10/3112/02/2021 220 (50 mg zinc) mg total) by mouth capsule daily with breakfast for 28 days. documented as of this encounter Progress Notes Jody Aguilar M.B., B.Chir. - 11/11/2021 9:43 AM CDT I agree with the history, physical examination, and evaluation as documented by 's discharge note dated November 11, 2021. Markedly improved. Paracentesis yesterday demonstrated only 50 neutrophils with a very low protein. She endorsed that she does not take lactulose that regularly OBJECTIVE PHYSICAL EXAMINATION General: Now improved. Speech is still slow, she is coherent Skin: Jaundiced. Tattoos Abdomen: Distended. Extremities: She has 2+ edema. ASSESSMENT / PLAN #1 Hepatic encephalopathy Catia Carias is a 31-year-old lady with decompensated liver disease, who has come in with somnolence. Improved with lactulose. Strongly encouraged to continue lactulose on a regular basis to maintain2-3 soft stools a day #2 Ascites No evidence of SBP #3 Acute kidney injury Creatinine has come down nicely. #4 Mild pleural effusion Most likely this is secondary to hepatic hydrothorax. #5 Marijuana use #6 Constipation We will continue lactulose. #7 Decompensated liver disease She will need to continue her liver transplant workup with Dr. Jerome. Evon Rodriguez Pharm.D., R.Ph. - 11/10/2021 8:10 AM CDT Pharmacist Progress Note Reason for admission: AMS, jaundice PMH: alcoholic cirrhosis undergoing transplant evaluation, nicotine dependence, cannabis use, chronic pain syndrome, anxiety, mood disorder, GERD, chronic pancreatitis, anemia, OBJECTIVE Home medications: ?? Held: vitamin D, folic acid, furosemide, gabapentin, hydroxyzine, magnesium, zofran, pantoprazole, ropinirole, spironolactone, medical cannabis, vitamin A Prophylaxis: held Estimated Creatinine Clearance: 72.3 mL/min (A) (by C-G formula based on SCr of 1.28 mg/dL (H)). ASSESSMENT / PLAN 1. Confusion, decompensated cirrhosis: Lactulose resumed. Continue ciprofloxacin ppx. Holding furosemide, spironolactone. S/p vitamin K 10 mg IV, INR remains 3.5. Recommend adding zinc as her level waslow on 09/30. Holding gabapentin - recommend resuming at a reduced dose when mental status improves to prevent withdrawal. 2. Acute anemia: Hgb 5.5, from 8. Giving 1 unit pRBCs. No bleeding noted. 3. MOSHE: SCr improved today 1.28 from 1.58, baseline ~0.6. S/p albumin 100g (although she's only 72 kg) on 11/09. Holding diuretics. 4. COVID positive @ OSH: Initial infection 08/29, on room air now. No COVID therapies indicated. Evon Rodriguez Pharm.D., R.Ph. [phone] documented in this encounter H&P Notes Jody Aguilar M.B., B.Chir. - 11/10/2021 10:08 AM CDT I agree with the history, physical examination, and evaluation as documented by Dr. Dina Campa dated November 09, 2021. CHIEF COMPLAINT/REASON FOR VISIT Altered mental status and jaundice. HISTORY OF PRESENT ILLNESS Catia Carias is a 31-year-old lady with alcoholic liver disease that is decompensated, who came inwith altered mental status and jaundice. Her significant other said that she has been quite somnolent for the last 2 or 3 days. She has been off of her lactulose for a few weeks. Of note, she does use c annabis and has had a chronic pain syndrome, and she is on a number of medications for that. She hasCOVID last August, but she denies any shortness of breath or cough. No obvious bleeding has been noted. She follows with Dr. Jerome in the outpatient clinic, and she is undergoing a transplant evaluation. OBJECTIVE PHYSICAL EXAMINATION General: Now improved. Speech is still slow but she knows her name and date Skin: Jaundiced. Abdomen: Distended. Extremities: She has 2+ edema. ASSESSMENT / PLAN #1 Hepatic encephalopathy Catia Carias is a 31-year-old lady with decompensated liver disease, who has come in with somnolence. Most likely it is hepatic encephalopathy. We will do an infectious workup. We will restart her lactulose. #2 Ascites Ultrasound of the abdomen shows patent hepatic veins. She has ascites. This morning, she is more alert, and she was refusing a paracentesis. We are going to push for a paracentesis. #3 Acute kidney injury We are going to give her albumin. I would like to push ascitic tap. #4 Mild pleural effusion Most likely this is secondary to hepatic hydrothorax. #5 Marijuana use #6 Constipation We will continue lactulose. #7 Decompensated liver disease She will need to continue her liver transplant workup, but if she is actively drinking and using drugs, this may make her candidacy somewhat questionable. Dina Campa M.D. - 11/09/2021 2:42 PM CDT [facility] Gastroenterology A Admission Note REFERRING FACILITY [facility] SUBJECTIVE CHIEF COMPLAINT Altered mental status, jaundice HISTORY OF PRESENT ILLNESS Ms. Catia Carias is a 31 y.o. female who presents with altered mental status and jaundice in the setting of alcoholic cirrhosis (diagnosed 01/2021). PMH is otherwise significant for nicotine dependence, chronic pain syndrome, GERD, chronic pancreatitis, anemia, thrombocytopenia, anxiety, cannabis use, mood disorder. She follows with Dr. Jerome in the outpatient setting undergoing transplant evaluation. Per report, she was brought to the ED by her significant other for concerns of altered mental statusof 1-2 day duration. She had mild leukocytosis (12.8), anemia (8.2, appears chronic), thrombocytopenia (73, appears chronic), lactate elevation (3.4), hyperammonemia (174), hyponatremia (129), creatinine (2.03, normal baseline), total bili (16.8), alk phos (200), ALT (21), AST (43) Otherwise, lipase was normal, negative, ethanol normal, salicylate normal, VBG unremarkable. CXR showed pulmonary vasculature congestion and large right pleural effusion. CT head was unremarkable. CT abdomen showed moderate to large ascites, constipation with large stool burden, distended bladder. COVID swab was positive. Upon arrival, she is vitally stable on room air. She is only oriented to self and history was unableto be obtained. Called her significant other, Lobito, who reports that she has been very sleepy for the past two days, that she may have not been taking her lactulose, that she smokes marijuana daily (last use some time in the past week). She had COVID in August, but has not been having any fevers, shortness of breath or cough. No recent travels, signs of bleed. She did show some improvement of mental status overnight since admission. MELD-Na score: 36 at 11/09/2021 7:09 PM MELD score: 35 at 11/09/2021 7:09 PM Calculated from: Serum Creatinine: 1.58 mg/dL at 11/09/2021 7:09 PM Serum Sodium: 131 mmol/L at 11/09/2021 7:09 PM Total Bilirubin: 16.9 mg/dL at 11/09/2021 7:09 PM INR(ratio): 3.4 at 11/09/2021 7:34 AM Age: 31 years PMH/FamilyHx/SocialHx/Allergies Reviewed and Updated. Current Outpatient Medications on File Prior to Encounter: ??? ciprofloxacin (CIPRO) 500 mg tablet, Take 1 tablet (500 mg total) by mouth every morning before breakfast Indications: Prophylaxis, medical. ??? ergocalciferol (DRISDOL) 50,000 Unit capsule, Take [...] lactulose (CHRONULAC) 10 gram/15 mL solution, Take 20 g by mouth 3 (three) times a day. Titrate to 3 BM daily; doesn't need to use often ??? levonorgestreL (MIRENA) 20 mcg/24 hours (7 yrs) 52 mg IUD, 1 each by intrauterine route continuously. ??? LORazepam (ATIVAN) 1 mg tablet, Take 1 tablet (1 mg total) by mouth once for 1 dose. Take beforeCT scan once ??? magnesium oxide (MAG-OX) 400 mg (241.3 mg magnesium) tablet, Take 1 tablet (400 mg total) by mouth 2 (two) times a day before breakfast and dinner. ??? ondansetron ODT (ZOFRAN-ODT) 8 mg disintegrating tablet, Take 1 tablet by mouth 3 (three) times a day as needed. ??? oxyCODONE (ROXICODONE) 5 mg immediate release tablet, Take 5 mg by mouth 3 (three) times a day as needed for pain. ??? pantoprazole (PROTONIX) 40 mg EC tablet, Take 1 tablet (40 mg total) by mouth every morning before breakfast. ??? promethazine (PHENERGAN) 25 mg tablet, Take 25 mg by mouth every 6 (six) hours as needed for nausea. ??? rOPINIRole XL (REQUIP XL) 2 mg [...] (three) times a week for 50 doses. REVIEW OF SYSTEMS Pertinent items are noted in HPI; all other review of systems was negative. OBJECTIVE VITAL SIGNS Temperature: [36.4 ??C] 36.4 ??C Heart Rate: [93] 93 Resp Rate: [17-20] 20 Blood Pressure: (98-104)/(50-62) 99/50 SpO2: [92 %-94 %] 92 % Weight: [71.9 kg] 71.9 kg Pulse Rate: [62-93] 89 PHYSICAL EXAM GENERAL: Somnolent, but responsive to verbal stimuli, confused, gross disorientation. HEENT: Sclera is icteric. CARDIAC: Heart rate and rhythm normal. Murmur is heard at the heart base. RESP: No signs of respiratory distress. ABDOMINAL: Very distended. No grimace to deep palpation. Extremities: Pulses palpable. Cap refill less than 3 seconds in all extremities. DIAGNOSTICS I have reviewed the labs, imaging, and relevant diagnostics from current admission and prior. ASSESSMENT / PLAN Ms. Carias is hospitalized on [facility] Gastroenterology A for evaluation and management of decompensated cirrhosis and hepatic encephalopathy likely in the setting of constipation, but cannot rule out infectious etiology. Plan as outlined below. # Decompensated cirrhosis (MELD-Na of 36) # Alcoholic cirrhosis # Grade 3 hepatic encephalopathy (gross disorientation) # Constipation (large stool burden on admit CT) - Diagnostic and therapeutic thoracentesis. F/u cytology. - IV Vitamin K given for elevated INR. Recheck tomorrow. - Low sodium diet - No signs of active GI bleed. Transfusion threshold >7. - Lactulose, titrated to bowel frequency 2-3 soft stools per day - Rifaximin can be added if no improvement - Blood cultures drawn 11/09. Please follow-up. - Ciprofloxacin ordered for hepatic encephalopathy of unknown trigger and mild leukocytosis. This can be discontinued once SBP is ruled out. - Holding NG tube placement for possible concern of esophageal varices. Tolerating oral medications for now. - Ethanol and urine studies obtained in the outside ED and unremarkable. Will not repeat. - Thiamine IV x 3 days - US liver with doppler shows patent vasculature # MOSHE, stage 2 (creatinine x2-3 from baseline) # Hepatorenal syndrome suspected - Albumin replacement and supportive management - Consider gentle diuresis in the morning after stabilization from paracentesis. - Medication cautions - Reynolds catheter for strict I/Os and AMS - Creatinine ppears to improving and no further imaging or urine studies indicated at present. # COVID positive outside ED, no respiratory symptoms - Appears previously positive in August and could be falsely positive results. Repeat swab. If persistently positive and asymptomatic, could check for antibody. - Remain on modified contact precaution until active COVID is ruled out. # Right pleural effusion on CXR - Room air and stable. Consider diagnostic and therapeutic thoracentesis if feasible. OTHER CHRONIC CONDITION(S) # Marijuana use - Daily use per family report. # Anxiety # Eating disorder - Holding home hydroxyzine, lorazepam, oxycodone, ropinirole. After improvement of mental status andappropriate medication reconciliation, I suspect they can be gradually reintroduced. May consider opioid or benzo taper to prevent future occurrences of encephalopathy. # Nausea # Chronic pancreatitis # History of prolonged QT - Repeat EKG on admission shows normal sinus rhythm with QTC of 417 - Compazine available PRN for nausea Baseline Mobility: BMAT Level 4 (Able to stand and walk) Diet: low sodium diet Tubes/lines: PIV and Reynolds VTE prophylaxis: Holding for high risk bleed Code status: Full Code - Unable to assess due to AMS Surrogate Decision Maker: Parent, Mother Disposition: Home Dina Campa M.D. Internal Medicine, PGY-2 This patient will be seen and discussed with [facility] A It Applications Manager, Jo Ann Abbasi M.D.. Please see the supervisory note for further details. Please contact the primary service pager - [phone] with any questions. documented in this encounter Nursing Notes Bernardo Nguyen R.N. - 11/11/2021 2:01 PM CDT Patient hospitalized for Hepatic Encephalopathy. Patient discharged to home with self care. Discharge medication sent to patient's local pharmacy. All discharge instructions and follow up reviewed withpatient and significant other in details. All questions answered accordingly. Significant other providing transport home. documented in this encounter Miscellaneous Notes Hospital Course - Gerard Andino M.D., M.S. - 11/10/2021 12:36 AM CDT Ms. Catia Carias is a 31 y.o. female who presents with altered mental status and jaundice in the setting of alcoholic cirrhosis (diagnosed 01/2021). PMH is otherwise significant for nicotine dependence, chronic pain syndrome, GERD, chronic pancreatitis, anemia, thrombocytopenia, anxiety, cannabis use, mood disorder. She follows with Dr. Jerome in the outpatient setting undergoing transplant evaluation. Per report, she was brought to the ED by her significant other for concerns of altered mental statusof 1-2 day duration. She had mild leukocytosis (12.8), anemia (8.2, appears chronic), thrombocytopenia (73, appears chronic), lactate elevation (3.4), hyperammonemia (174), hyponatremia (129), creatinine (2.03, normal baseline), total bili (16.8), alk phos (200), ALT (21), AST (43) Otherwise, lipase was normal, negative, ethanol normal, salicylate normal, VBG unremarkable. CXR showed pulmonary vasculature congestion and large right pleural effusion. CT head was unremarkable. CT abdomen showed moderate to large ascites, constipation with large stool burden, distended bladder. COVID swab was positive. Upon arrival, she is vitally stable on room air. She is only oriented to self and history was unableto be obtained. She was given vitamin K for elevated INR of 3.4. Paracentesis was performed to rule out SBP. While waiting for results, ciprofloxacin was started empirically. She was given albumin repletion for suspected hepatorenal syndrome. Her mental status showed improvement with lactulose. She underwent paracentesis which showed no evidence of SBP. Serum ascites albumin gradient was > 1.1g consistent with portal hypertension in the setting of her known cirrhosis. Improvement of her hepatic encephalopathy, she was deemed stable ready for discharge on 11/11/2021. Prophylactic ciprofloxacin was continued on discharge. Her renal function returned to baseline. She was resumed on her home diuretics. She was started on zinc supplementation for low serum zinc level. Continued adherence to lactulose was reinforced. documented in this encounter Plan of Treatment Upcoming Encounters Date Type Specialty Care Team Description 01/07/2022 Office Visit Community Internal Medicine Ranjit Red P.A.-C. [address] [facility] [place] [phone] (Wo rk) 01/12/2022 Appointment Laboratory Medicine Matthew Jerome M.B.B.SSuma, M.D. [address] [place] [address] (Wo rk) 01/12/2022 Appointment Laboratory Medicine Adeline Frazier M.D., Ph.D. [address] [place] [phone] (Gwendolyn rahman) 01/13/2022 Telemedicine Transplant Joel Tan L.I.C.S.WSuma, M.S. W. [address] [place] [phone] (Wo lacey) 01/13/2022 Telemedicine Transplant Matthew Jerome M.B.BSumaSSuma, M.D. [address] [place] [address] (Gwendolyn rahman) 01/13/2022 Telemedicine Transplant Adeline Frazier M.D., Ph.D. [address] [place] [phone] (Gwendolyn rahman) 01/28/2022 Office Visit Gastroenterology and Matthew Jerome, Hepatology VikBSumaSSuma, M.D. [address] [place] [address] (Gwendolyn rahman) Pending Results Name Type Priority Associated Diagnoses Date/Ti me Prepare Red Blood Blood Bank Routine 11/10/2021 4:37 AM CDT Cells, 1 Units Prepare Red Blood Blood Bank Routine 11/10/2021 4:37 AM CDT Cells, 1 Units Scheduled Procedures Name Priority Associated Diagnoses Date/Time ESOPHAGOGASTRODUODENOSCOPY Cirrhosis Alc oholic (HCC) Hypertension Portal (HCC) ESOPHAGOGASTRODUODENOSCOPY Cirrhosis Alc oholic (HCC) Ascites Anemia Macrocytic Thrombocytopenia (HC C) Deficiency Coagulation Acquired (HCC) documented as of this encounter Procedures Procedure Name Priority Date/Time Associated Comments Diagnosis SPSMA RESULT Routine 11/11/2021 9:52 Results for AM CDT this procedure are in the results section. PROTHROMBIN TIME Routine 11/11/2021 4:31 Results for (PT), P AM CDT this procedure are in the results section. CBC WITHOUT Routine 11/11/2021 4:31 Results for DIFFERENTIAL, B AM CDT this procedu re are in the results section. COMPREHENSIVE Routine 11/11/2021 4:31 Results for METABOLIC PANEL, S/P AM CDT this pr ocedure are in the results section. TRANSFUSE RED BLOOD Routine 11/10/2021 4:35 CELLS PM CDT US PARACENTESIS WITH RAD - Routine 11/10/2021 3:51 Res ults for IMAGING GUIDANCE (most inpatients PM CDT this pr ocedure and all are in the outpatients) results section. PROTEIN, TOTAL, BF Timed 11/10/2021 2:32 Result s for PM CDT this procedure are in the results section. BACTERIAL CULTURE, Timed 11/10/2021 2:32 Result s for AEROBIC + SUSC PM CDT this procedur e are in the results section. CELL COUNT AND Timed 11/10/2021 2:32 Results fo r DIFFERENTIAL, BF PM CDT this proced ure are in the results section. GRAM STAIN Timed 11/10/2021 2:32 Results for PM CDT this procedure are in the results section. ALBUMIN, BODY FLUID Timed 11/10/2021 2:32 Resul ts for PM CDT this procedure are in the results section. ADULT OXYGEN THERAPY Routine 11/10/2021 2:30 PM CDT SPSMA RESULT Timed 11/10/2021 12:02 Results for PM CDT this procedure are in the results section. RETICULOCYTES, B Timed 11/10/2021 12:02 Results for PM CDT this procedure are in the results section. HEMOGLOBIN, B Timed 11/10/2021 12:02 Results fo r PM CDT this procedure are in the results section. DIRECT ANTIGLOBULIN Timed 11/10/2021 12:02 Resu lts for TEST (POLYSPECIFIC) PM CDT this pro cedure are in the results section. LACTATE Timed 11/10/2021 12:02 Results for DEHYDROGENASE (LD), PM CDT this pro cedure S are in the results section. HAPTOGLOBIN, S Timed 11/10/2021 12:02 Results f or PM CDT this procedure are in the results section. TRANSFUSE RED BLOOD Routine 11/10/2021 9:55 CELLS AM CDT PROTHROMBIN TIME Routine 11/10/2021 4:38 Results for (PT), P AM CDT this procedure are in the results section. CBC WITH Routine 11/10/2021 4:38 Results for DIFFERENTIAL, B AM CDT this procedu re are in the results section. PHOSPHORUS Routine 11/10/2021 4:38 Results for (INORGANIC), S AM CDT this procedur e are in the results section. MAGNESIUM, S Routine 11/10/2021 4:38 Results for AM CDT this procedure are in the results section. BASIC METABOLIC Routine 11/10/2021 4:38 Results f or PANEL, S/P AM CDT this procedure are in the results section. PREPARE RED BLOOD Routine 11/10/2021 4:37 CELLS AM CDT PREPARE RED BLOOD Routine 11/10/2021 4:37 CELLS AM CDT TYPE AND SCREEN Routine 11/10/2021 4:37 Results f or AM CDT this procedure are in the results section. ECG Routine 11/09/2021 10:47 Results for PM CDT this procedure are in the results section. US LIVER DOPPLER RAD - Semiurgent 11/09/2021 10:04 Res ults for (Fast; most ED PM CDT this procedur e patients; some are in the inpatients) results section. BACTERIA / INES Routine 11/09/2021 8:25 Result s for CULTURE, BLOOD PM CDT this procedur e are in the results section. BACTERIA / INES Routine 11/09/2021 7:10 Result s for CULTURE, BLOOD PM CDT this procedur e are in the results section. HEPATIC FUNCTION STAT 11/09/2021 7:09 Results for PANEL, S PM CDT this procedure are in the results section. ALPHA-FETOPROTEIN STAT 11/09/2021 7:09 Results for (AFP) TM, S PM CDT this procedure are in the results section. CBC WITH STAT 11/09/2021 7:09 Results for DIFFERENTIAL, B PM CDT this procedu re are in the results section. C-REACTIVE PROTEIN STAT 11/09/2021 7:09 Result s for (CRP), S/P PM CDT this procedure are in the results section. PHOSPHORUS STAT 11/09/2021 7:09 Results for (INORGANIC), S PM CDT this procedur e are in the results section. MAGNESIUM, S STAT 11/09/2021 7:09 Results for PM CDT this procedure are in the results section. LACTATE, B/P STAT 11/09/2021 7:09 Results for PM CDT this procedure are in the results section. BASIC METABOLIC STAT 11/09/2021 7:09 Results f or PANEL, S/P PM CDT this procedure are in the results section. documented in this encounter Results SPSMA Result (11/11/2021 9:52 AM CDT) [facility] gist Method Time Signature Neutrophilic Segs 71 50 - 75 % 11/11/2021 DHPM and Bands 12:21 PM CDT Lymphocytes 25 18 - 42 % 11/11/2021 DHPM 12:21 PM CDT Monocytes 4 2 - 11 % 11/11/2021 DHPM 12:21 PM CDT Interpretation SeeComment 11/11/2021 DHPM 12:21 PM CDT Comment: No morphologic features of hemolysis are seen. Toxic changes and-or Dohle bodies are present; consider an infectio us process. Moderate acanthocytes present. Reviewed by: Tech 11/11/2021 12:21 PM CDT DHP M Specimen Anatomical Collection Method Collection Time Receive d Time (Source) Location / / Volume Laterality Blood (Blood, 11/11/2021 9:52 AM 11/12/19 22 Venous) CDT 10:47 AM CDT Tanmay Parker M.D. LAB BLOOD ADD-ON Performing Organization Address City/State/ZIP Code Phon e Number [facility] - [address] [place] [address] [address] [place] [address] Laboratories[address] (ABNORMAL) Prothrombin Time (PT) (11/11/2021 4:31 AM CDT) Patholo gist Method Time Signature Prothrombin 35.2 (H) 9.4 - 12.5 11/11/2021 DTL Time, P sec 5:25 AM CDT INR 3.1 0.9 - 1.1 11/11/2021 DTL 5:25 AM CDT Comment: ----ADDITIONAL INFORMATION---- Standard intensity warfarin therapeutic range: 2.0 to 3.0 ?? High intensity warfarin therapeutic rang e: 2.5 to 3.5 Specimen Anatomical Collection Method Collection Time Receive d Time (Source) Location / / Volume Laterality Blood (Blood, 11/11/2021 4:31 AM 11/12/19 22 4:58 Venous) CDT AM CDT Gerard Andino M.D., M.S. LAB BLOOD ADD-ON Performing Organization Address City/State/ZIP Code Phon e Number [facility] - [address] [place] [address] 55 [address] [place] [address] Laboratories-[address] (ABNORMAL) Comprehensive Metabolic Panel (11/11/2021 4:31 AM CDT) P athologist Signature Potassium, S 3.6 3.6 - 5.2 11/11/2021 DTL mmol/L 5:37 AM CDT Sodium, S 136 135 - 145 11/11/2021 DTL mmol/L 5:37 AM CDT Chloride, S 105 98 - 107 11/11/2021 DTL mmol/L 5:37 AM CDT Bicarbonate, S 19 (L) 22 - 29 11/11/2021 DTL mmol/L 5:37 AM CDT Anion Gap 12 7 - 15 11/11/2021 DTL 5:37 AM CDT BUN (Blood Urea 20 6 - 21 11/11/2021 DTL Nitrogen), S mg/dL 5:37 AM CDT Creatinine 0.96 0.59 - 11/11/2021 DTL 1.04 mg/dL 6:27 AM CDT eGFR-Non 79 >=60 11/11/2021 DTL Black/ mL/min/BSA 6:27 AM CDT [place] Comment: ----ADDITIONAL INFORMATION---- Estimated GFR calculated using the 2009 CKD_EPI creatinine equation. eGFR-Black/ >90 >=60 mL/min/BSA 2021 6:27 AM CDT DTL Comment: ----ADDITIONAL INFORMATION---- Estimated GFR calculated using the 2009 CKD_EPI creatinine equation. Calcium, Total, S 8.5 (L) 8.6 - 10.0 mg/dL 11/11/2021 5:37 AM CDT DTL Glucose, S 121 70 - 140 mg/dL 11/11/2021 5:37 AM CDT D TL Protein, Total, S 4.2 (L) 6.3 - 7.9 g/dL 11/11/2021 6:16 A M CDT DTL Albumin, S 3.2 (L) 3.5 - 5.0 g/dL 11/11/2021 5:37 AM CDT D TL Aspartate Aminotransferase 35 8 - 43 U/L 11/11/2021 5 :37 AM CDT DTL (AST), S Alkaline Phosphatase, S 132 (H) 35 - 104 U/L 11/11/2021 5: 37 AM CDT DTL Alanine Aminotransferase 17 7 - 45 U/L 11/11/2021 5:3 7 AM CDT DTL (ALT), S Bilirubin, Total, S 16.6 (H) <=1.2 mg/dL 11/11/2021 5:37 AM CDT DTL Specimen Anatomical Collection Method Collection Time Receive d Time (Source) Location / / Volume Laterality Blood (Blood, 11/11/2021 4:31 AM 11/12/19 5:14 Venous) CDT AM CDT Gerard Andino M.D., M.S. LAB BLOOD ADD-ON Performing Organization Address City/State/ZIP Code Phon e Number [facility] - [address] [place], [place] [address] [facility] [place] [address] Laboratories-[facility] [address] (ABNORMAL) CBC without Differential (11/11/2021 4:31 AM CDT) Patholo gist Method Time Signature Hemoglobin 7.4 (L) 11.6 - 11/11/2021 DTL 15.0 g/dL 5:08 AM CDT Hematocrit 21.7 (L) 35.5 - 11/11/2021 DTL 44.9 % 5:08 AM CDT Erythrocytes 2.14 (L) 3.92 - 11/11/2021 DTL 5.13 5:08 AM CDT x10(12)/L MCV 101.4 (H) 78.2 - 11/11/2021 DTL 97.9 fL 5:08 AM CDT RBC Distrib Width 20.3 (H) 12.2 - 11/11/2021 DTL 16.1 % 5:08 AM CDT Platelet Count 47 (L) 157 - 371 11/11/2021 DTL x10(9)/L 5:08 AM CDT Leukocytes 7.6 3.4 - 9.6 11/11/2021 DTL x10(9)/L 5:08 AM CDT Specimen Anatomical Collection Method Collection Time Receive d Time (Source) Location / / Volume Laterality Blood (Blood, 11/11/2021 4:31 AM 11/12/19 22 4:58 Venous) CDT AM CDT Gerard Andino M.D. MWu. LAB BLOOD ADD-ON Performing Organization Address City/State/ZIP Code Phon e Number [facility] - [address] [place], [place] [address] [facility] [place] [address] [facility] [address] Transfuse Red Blood Cells : (11/10/2021 9:05 PM CDT) Gerard Andino M.D. M.S. BLOOD TRANSFUSION ORDERABLES Transfuse Red Blood Cells : , 1 Units (11/10/2021 9:05 PM CDT) Gerard Andino M.D., MWu. BLOOD TRANSFUSION ORDERABLES US Paracentesis with Imaging Guidance (11/10/2021 3:51 PM CDT) Anatomical Region Laterality Modality Abdomen, Ultrasound RST LOS, Ultrasound ARZ LOS, Procedure F LA N/A Ultrasound LOS, Abdominal FLA LOS, Procedural Specimen (Source) Anatomical Collection Method Collection Time Re ceived Time Location / / Volume Laterality 11/10/2021 3:58 PM CDT Impressions 11/10/2021 4:28 PM CDT Ultrasound-guided paracentesis. CP Narrative 11/10/2021 4:28 PM CDT EXAM: US PARACENTESIS WITH IMAGING GUIDANCE PRE-PROCEDURE: Patient seen, evaluated, history reviewed, and approved for sedation. Airway, heart, and lung exam satisfactory for sedation. Discussed risks, benefits, alternatives for procedure, and/or sedation. The roles and responsib ilities of care team members, residents, and fellows were discussed. Patient understands informati on and questions answered. Informed consent obtained from the patient. Immediately prior to starti ng the procedure, in the presence of the assisting personnel, a procedural pause was conduc clay[place] to verify correct patient identity and verification of procedure to be performed, and as applic able, correct side and site, correct patient position, availability of implants, special equipm ent, or special requirements, and all image and specimen identification data. INTRAPROCEDURE: Moderate sedation was ad ministered by sedation nurse under my supervision. The patient was continuously monitored with real time oxygen saturation, heart rate, ECG rhythm strip and blood pressure throughout administra tion of the sedation and performance of the procedure. The total intra-procedural sedation time was : 45 minutes. ??. TECHNIQUE: Sterile. 1% lidocaine for loc al anesthesia. Location: Right lower quadrant peritonea l space. Needle size: 5 Fr centesis catheter. Volume aspirated: 2278 cc of straw color ed fluid. The tip of the catheter then adhered to an adjacent mobile loop of bowel. After mul tiple unsuccessful attempts at mobilizing the catheter, the catheter was removed. Only small volume ascites remaining in the peritoneal cavity. Complication: None. Blood loss: None. Purpose: Diagnostic and therapeutic. PATIENT INSTRUCTIONS: Patient may be dis missed from the radiology department when dismissal criteria met. POST-PROCEDURE DIAGNOSIS: Ascites. Procedure Note Rex Jenkins M.D. - 11/10/2021 EXAM: US PARACENTESIS WITH IMAGING KYLER JACKSON PRE-PROCEDURE: Patient seen, evaluated, history reviewed, and approved for sedation. Airway, heart, and lung exam satisfactory for sedation. Discussed risks, benefits, alternatives for procedure, and/or sedation. The roles and responsib ilities of care team members, residents, and fellows were discussed. Patient understands informati on and questions answered. Informed consent obtained from the patient. Immediately prior to starti ng the procedure, in the presence of the assisting personnel, a procedural pause was conduc [place] to verify correct patient identity and verification of procedure to be performed, and as applic able, correct side and site, correct patient position, availability of implants, special equipm ent, or special requirements, and all image and specimen identification data. INTRAPROCEDURE: Moderate sedation was ad ministered by sedation nurse under my supervision. The patient was continuously monitored with real time oxygen saturation, heart rate, ECG rhythm strip and blood pressure throughout administra tion of the sedation and performance of the procedure. The total intra-procedural sedation time was : 45 minutes. . TECHNIQUE: Sterile. 1% lidocaine for loc al anesthesia. Location: Right lower quadrant peritonea l space. Needle size: 5 Fr centesis catheter. Volume aspirated: 2278 cc of straw color ed fluid. The tip of the catheter then adhered to an adjacent mobile loop of bowel. After mul tiple unsuccessful attempts at mobilizing the catheter, the catheter was removed. Only small volume ascites remaining in the peritoneal cavity. Complication: None. Blood loss: None. Purpose: Diagnostic and therapeutic. PATIENT INSTRUCTIONS: Patient may be dis missed from the radiology department when dismissal criteria met. POST-PROCEDURE DIAGNOSIS: Ascites. IMPRESSION: Ultrasound-guided paracentesis. CP Gerard Andino M.D., M.S. IMG US PROCEDURES Albumin, Body Fluid (11/10/2021 2:32 PM CDT) [...] process. ?? All other fluids refer to www.[email or web address] for further interpretive information. This t est has been modified from the last cleaner's instruc tions. Its performance characteristics were determi foreign by [facility] in a manner consistent with CLIA require ments. This test has not been cleared or approved by the U.S. Food and Drug Administration. Fluid Type, Albumin Fluid, Peritoneal Fluid 2021 3:40 PM CDT DTL Specimen Anatomical Collection Method Collection Time Receive d Time (Source) Location / / Volume Laterality Fluid 11/10/2021 2:32 PM 2 3:50 CDT PM CDT Gerard Andino M.D., M.S. LAB BODY FLUIDS AND STOOLS O JOSE Performing Organization Address [facility] Phon e Number [facility] - [address] Gram Stain (11/10/2021 2:32 PM CDT) Patholo gist Method Time Signature Gram Stain No organisms seen. 11/10/2021 DTL White blood cells present. 8:25 PM CDT Specimen Anatomical Collection Method Collection Time Receive d Time (Source) Location / / Volume Laterality Fluid 11/10/2021 2:32 PM 2 5:21 (Peritoneal CDT PM CDT Fluid) Comment: Specimen Source Site: Fluid Narrative [facility] - 11/10/2021 8:25 PM CDT Bacterial Culture: Received Bactec aerob ic and Bactec anaerobic bottles Gerard Andino M.D., M.S. LAB MICROBIOLOGY - GENERAL O JOSE Performing Organization Address [facility] Phon e Number [facility] - [address] [place], [place] [address] [place] [address] [place] [address] Protein, Total, Body Fluid (11/10/2021 2:32 PM CDT) P athologist Signature Protein, 0.7 See Comment 11/10/2021 [...] ical findings. All other fluids refer to [email or web address] for further inter pretive information. This test has been modified from the last cleaner's instructions. Its perform ance characteristics were determined by [facility] in a manner consistent with CLIA require [...] AND STOOLS O RDERABLES Performing Organization Address City/State/ZIP Code Phon e Number [facility] - [address] [place], [place] [address] [facility] [place] [address] [facility] [address] [facility] Cell Count and Differential, Body Fluid (11/10/2021 2:32 PM CDT) [facility] gist Method Time Signature Fluid Type Peritoneal- 11/10/2021 DHPM Paracentesi 8:50 PM CDT s Gross Serous 11/10/2021 DHPM Appearance 8:50 PM CDT Total Nucleated 54 /mcL 11/10/2021 PM Cells 8:50 PM CDT Comment: ----REFERENCE VALUE---- Synovial: <150 /mcL Peritoneal: <500 /mcL Pleural: <500 /mcL Pericardial: <500 /mcL ----ADDITIONAL INFORMATION---- This test has been modified from the man ufacturer's instructions. Its performance characteri stics were determined by [facility] in a manner co nsistent with CLIA requirements. This test has not bee n cleared or approved by the U.S. Food and Drug Admin istration. Neutrophils 3 % 11/10/2021 8:50 PM CDT DHPM Comment: ----REFERENCE VALUE---- Synovial: <25% Peritoneal: <25% Pleural: <25% Pericardial: <25% Lymphocytes 65 Synovial <75% % 11/10/2021 8:50 PM CDT DHPM Monocytes/Macrophages 26 Synovial <70% % 11/10/2021 8 :50 PM CDT DHPM Other Cells 6 % 11/10/2021 8:50 PM CDT DHPM Comment: ----REFERENCE VALUE---- The reference range and other method performance specifications have not been established for this bodyfluid. The test result must be integrated into the clinical context for interpretation. Other Cells Are: Mesothelial cells 11/10/2021 8:50 PM CDT DHPM Comment No blasts or malignant cells seen. 11/10 8:50 PM CDT DHPM Reviewed by: Ruth 11/10/2021 8:50 PM CDT DHPM Specimen Anatomical Collection Method Collection Time Receive d Time (Source) Location / / Volume Laterality Fluid 11/10/2021 2:32 PM 2 3:47 (Peritoneal CDT PM CDT Fluid) Gerard Andino M.D., M.S. LAB BODY FLUIDS AND STOOLS O RDERABLES Performing Organization Address City/State/ZIP Code Phon e Number [facility] - [address] [place] [address] 559 05 [place] [address] [facility] 200 [facility] Bacterial Culture, Aerobic + Susc (11/10/2021 2:32 PM CDT) [facility] Method Time Signature Bacterial No growth 11/15/2021 DTL Culture, after 5 9:17 AM CDT Aerobic + Susc days of incubation. Specimen Anatomical Collection Method Collection Time Receive d Time (Source) Location / / Volume Laterality Fluid 11/10/2021 2:32 PM 2 5:21 (Peritoneal CDT PM CDT Fluid) Comment: Specimen Source Site: Fluid Narrative [facility] - [facility] - 11/15/2021 9:17 AM CDT Bacterial Culture: Received Bactec aerob ic and Bactec anaerobic bottles Gerard Andino M.D., M.S. LAB MICROBIOLOGY - GENERAL O RDERABLES Performing Organization Address [facility] Phon e Number [facility] - [address] [address] 05 [facility] [address] [facility] 200 [facility] Transfuse Red Blood Cells : (11/10/2021 12:21 PM CDT) Dina Campa M.D. BLOOD TRANSFUSION ORDERABLES Transfuse Red Blood Cells : , 1 Units (11/10/2021 12:21 PM CDT) Dina Campa M.D. BLOOD TRANSFUSION ORDERABLES Direct Antiglobulin Test (Poly) (11/10/2021 12:02 PM CDT) [facility] gist Method Time Signature Direct Negative Negative 11/10/2021 [facility] Antiglobulin 12:44 PM CDT Test, Polyspecific Specimen Anatomical Collection Method Collection Time Receive d Time (Source) Location / / Volume Laterality Blood (Blood, 11/10/2021 12:02 11/10/2021 Venous) PM CDT 12:16 PM CDT Dina Campa M.D. LAB BLOOD BANK TEST ORDERABL ES Performing Organization Address [facility] Phon e Number [facility] - [address] [place] [address] [facility]-[address] (ABNORMAL) SPSMA Result (11/10/2021 12:02 PM CDT) Analysis Performed At Patho logist Time Signature Neutrophilic Segs 80 (H) 50 - 75 % 11/10/2021 DHPM and Bands 2:35 PM CDT Lymphocytes 16 (L) 18 - 42 % 11/10/2021 DHPM 2:35 PM CDT Monocytes 1 (L) 2 - 11 % 11/10/2021 DHPM 2:35 PM CDT Eosinophils 1 1 - 3 % 11/10/2021 DHPM 2:35 PM CDT Basophils 2 0 - 2 % 11/10/2021 DHPM 2:35 PM CDT Manual Absolute 5.20 1.56 - 11/10/2021 DHPM Neutrophil Count 6.45 2:35 PM CDT x10(9)/L Comment: ----ADDITIONAL INFORMATION---- The manual absolute neutrophil count is derived from a manual differential count and therefore is not exactly comparable to the automated absolute armida trophil count. Interpretation SeeComment 11/10/2021 2:35 PM CDT D HPM Comment: No morphologic features of hemolysis are seen. No schistocytes are seen. No platelet clumping. Reviewed by: Ruth 11/10/2021 2:35 PM CDT [facility] Specimen Anatomical Collection Method Collection Time Receive d Time (Source) Location / / Volume Laterality Blood (Blood, 11/10/2021 12:02 11/10/2021 Venous) PM CDT 12:29 PM CDT Dina Campa M.D. LAB BLOOD ADD-ON Performing Organization Address City/[facility]/ZIP Code Phon e Number [facility] - [address] [place], [place] [address] [place] [address] [facility] [address] (ABNORMAL) Haptoglobin (11/10/2021 12:02 PM CDT) [facility] Haptoglobin, S <14 (L) 30 - 200 11/10/2021 [facility] mg/dL 5:27 PM CDT Specimen Anatomical Collection Method Collection Time Receive d Time (Source) Location / / Volume Laterality Blood (Blood, 11/10/2021 12:02 11/10/2021 3:46 Venous) PM CDT PM CDT Dina Campa M.D. LAB BLOOD ADD-ON Performing Organization Address City/State/ZIP Code Phon e Number [facility] [address] [place], [place] [address] [facility] [place] [address] Laboratory Medicine and Pathology [address] [place] LD (Lactate Dehydrogenase) (11/10/2021 12:02 PM CDT) [facility] LD 208 122 - 222 11/10/2021 DTL U/L 1:10 PM CDT Specimen Anatomical Collection Method Collection Time Receive d Time (Source) Location / / Volume Laterality Blood (Blood, 11/10/2021 12:02 11/10/2021 Venous) PM CDT 12:48 PM CDT Dina Song M.D. LAB BLOOD NON ADD-ON Performing Organization Address City/[facility]/ZIP Code Phon e Number [facility] - [address] (ABNORMAL) Reticulocytes (11/10/2021 12:02 PM CDT) [facility] gist Method Time Signature Reticulocytes, B 7.17 [...] M.D. LAB BLOOD ADD-ON Performing Organization Address City/[facility]/ZIP Code Phon e Number [facility] - [address] [place] [address] (ABNORMAL) Hemoglobin (11/10/2021 12:02 PM CDT) P athologist Signature Hemoglobin 6.9 (L) 11.6 - 15.0 11/10/2021 DTL g/dL 2:23 PM CDT Specimen Anatomical Collection Method Collection Time Receive d Time (Source) Location / / Volume Laterality Blood (Blood, 11/10/2021 12:02 11/10/2021 Venous) PM CDT 12:29 PM CDT Dina Campa M.D. LAB BLOOD ADD-ON Performing Organization Address City/[facility]/ZIP Code Phon e Number [facility] - [address] (ABNORMAL) Prothrombin Time (PT) (11/10/2021 4:38 AM CDT) [facility] Method Time Signature Prothrombin 39.1 (H) 9.4 - 12.5 11/10/2021 DTL Time, P sec 6:15 AM CDT INR 3.5 0.9 - 1.1 11/10/2021 DTL 6:15 AM CDT Comment: ----ADDITIONAL INFORMATION---- Standard intensity warfarin therapeutic range: 2.0 to 3.0 ?? High intensity warfarin therapeutic rang e: 2.5 to 3.5 Specimen Anatomical Collection Method Collection Time Receive d Time (Source) Location / / Volume Laterality Blood (Blood, 11/10/2021 4:38 AM 11/11/19 5:36 Venous) CDT AM CDT Dina Campa M.D. LAB BLOOD ADD-ON Performing Organization Address City/[facility]/ZIP Code Phon e Number [facility] - [address] Phosphorus Inorganic (11/10/2021 4:38 AM CDT) P athologist Signature Phosphorus 4.0 2.5 - 4.5 11/10/2021 DTL (Inorganic), S mg/dL 6:10 AM CDT Specimen Anatomical Collection Method Collection Time Receive d Time (Source) Location / / Volume Laterality Blood (Blood, 11/10/2021 4:38 AM 11/11/19 22 5:51 Venous) CDT AM CDT Dina Campa M.D. LAB BLOOD ADD-ON Performing Organization Address City/[facility]/ZIP Code Phon e Number [facility] - [address] [place], [place] [address] [place] [address] [address] Magnesium (11/10/2021 4:38 AM CDT) P athologist Signature Magnesium, S 1.7 1.7 - 2.3 11/10/2021 DTL mg/dL 6:10 AM CDT Specimen Anatomical Collection Method Collection Time Receive d Time (Source) Location / / Volume Laterality Blood (Blood, 11/10/2021 4:38 AM 11/11/19 22 5:51 Venous) CDT AM CDT Dina Campa M.D. LAB BLOOD ADD-ON Performing Organization Address City/[facility]/ZIP Code Phon e Number [facility] - [address] [place], [place] [address] [facility] [place] [address] [facility] 200 [facility] (ABNORMAL) Basic Metabolic Panel (11/10/2021 4:38 AM CDT) Analysis Performed At Patho logist Time Signature Potassium, S 4.2 3.6 - 5.2 11/10/2021 DTL mmol/L 6:10 AM CDT Sodium, S 134 (L) 135 - 145 11/10/2021 DTL mmol/L 6:10 AM CDT Chloride, S 102 98 - 107 11/10/2021 DTL mmol/L 6:10 AM CDT Bicarbonate, S 19 (L) 22 - 29 11/10/2021 DTL mmol/L 6:10 AM CDT Anion Gap 13 7 - 15 11/10/2021 DTL 6:10 AM CDT BUN (Blood Urea 24 (H) 6 - 21 11/10/2021 DTL Nitrogen), S mg/dL 6:10 AM CDT Creatinine 1.28 (H) 0.59 - 11/10/2021 DTL 1.04 mg/dL 7:08 AM CDT eGFR-Non 56 (L) >=60 11/10/2021 DTL Black/ mL/min/BSA 7:08 AM CDT [place] Comment: ----ADDITIONAL INFORMATION---- Estimated GFR calculated using the 2009 CKD_EPI creatinine equation. eGFR-Black/ 64 >=60 mL/min/BSA 2021 7:08 AM CDT DTL Comment: ----ADDITIONAL INFORMATION---- Estimated GFR calculated using the 2009 CKD_EPI creatinine equation. Calcium, Total, S 9.0 8.6 - 10.0 mg/dL 11/10/2021 6:10 AM CDT DTL Glucose, S 79 70 - 140 mg/dL 11/10/2021 6:10 AM CDT D TL Specimen Anatomical Collection Method Collection Time Receive d Time (Source) Location / / Volume Laterality Blood (Blood, 11/10/2021 4:38 AM 11/11/19 5:51 Venous) CDT AM CDT Dina Campa M.D. LAB BLOOD ADD-ON Performing Organization Address City/State/ZIP Code Phon e Number [facility] - [address] [place], [place] [address] [facility] [place] [address] [facility] [address] [facility] (ABNORMAL) CBC with Differential, Blood (11/10/2021 4:38 AM CDT) P athologist Signature Hemoglobin 5.5 (CL) 11.6 - 15.0 11/10/2021 DTL g/dL 6:36 AM CDT Comment: Rule out IV contamination. Cons ider sample redraw if clinically indicated. Hematocrit 16.1 (L) 35.5 - 44.9 % 11/10/2021 6:36 AM CDT DT L Erythrocytes 1.48 (L) 3.92 - 5.13 x10(12)/L 11/10/2021 6:36 AM CDT DTL MCV 108.8 (H) 78.2 - 97.9 fL 11/10/2021 6:36 AM CDT DT L RBC Distrib Width 15.3 12.2 - 16.1 % 11/10/2021 6:36 AM CDT DTL Platelet Count 51 (L) 157 - 371 x10(9)/L 11/10/2021 6:36 AM CDT DTL Leukocytes 5.4 3.4 - 9.6 x10(9)/L 11/10/2021 6:36 AM C DT DTL Neutrophils 3.65 1.56 - 6.45 x10(9)/L 11/10/2021 6:36 A M CDT DTL Lymphocytes 1.01 0.95 - 3.07 x10(9)/L 11/10/2021 6:36 A M CDT DTL Monocytes 0.56 0.26 - 0.81 x10(9)/L 11/10/2021 6:36 AM CDT DTL Eosinophils 0.10 0.03 - 0.48 x10(9)/L 11/10/2021 6:36 A M CDT DTL Basophils 0.03 0.01 - 0.08 x10(9)/L 11/10/2021 6:36 AM CDT DTL Specimen Anatomical Collection Method Collection Time Receive d Time (Source) Location / / Volume Laterality Blood (Blood, 11/10/2021 4:38 AM 11/11/19 22 5:35 Venous) CDT AM CDT Dina Campa M.D. LAB BLOOD ADD-ON Performing Organization Address City/[facility]/ZIP Code Phon e Number [facility] - [address] [place], [place] [address] [facility] [place] [address] [facility] 200 [facility] Type and Screen (with reflex Antibody ID) (11/10/2021 4:37 AM CDT) Patholo gist Method Time Signature ABORh B Pos Not 11/10/2021 STRM applicable 7:54 AM CDT Antibody Negative Negative 11/10/2021 STRM Screen 8:07 AM CDT Type & Screen 11/13/2021 11/10/2021 STRM Expiration 23:59 7:54 AM CDT Testing Jcarlos DEFAULT 11/10/2021 STRM Location 7:29 AM CDT Specimen Anatomical Collection Method Collection Time Receive d Time (Source) Location / / Volume Laterality Blood (Blood, 11/10/2021 4:37 AM 11/11/19 22 7:29 Venous) CDT AM CDT Dina Campa M.D. LAB BLOOD BANK TEST ORDERABL ES Performing Organization Address City/[facility]/ZIP Code Phon e Number [facility] - [address] [place] [address] [facility]-[address] ECG 12 Lead (11/09/2021 10:47 PM CDT) P athologist Signature Ventricular Rate 88 BPM MUSE ECG/Min MO Interval 158 ms MUSE QRSD Interval 84 ms MUSE QT Interval 344 ms MUSE QTC Interval 417 ms MUSE P Harmony 64 degrees MUSE R Harmony 46 degrees MUSE T Wave Harmony 37 degrees MUSE Specimen Anatomical Collection Method [...] LI-RADS is supported and endorsed by the [employer] [employer]. More information can be found on the followin g link: https://www.acr.org/Clinical-Resources/Miqffbsew-wsy-Svsz-Systems/LI-RADS/Ultras [email or web address] Procedure Note Rex Jenkins M.D. - 11/10/2021 [...] LI-RADS is supported and endorsed by the [employer] [employer]. More information can be found on the followin g link: https://www.acr.org/Clinical-Resources/Vkrdxxxzl-vow-Nhdj-Systems/LI-RADS/Ultras msqq-CE-[email or web address]-v2017 IMPRESSION: 1. Cirrhotic morphology of the liver wit hout suspicious focal hepatic lesions. LI-RADS 1B. 2. Hepatic arterial and venous vasculatu re is patent with antegrade flow. Elevated main hepatic artery velocities. 3. Moderate volume ascites. Dina Campa M.D. IMG US PROCEDURES Bacteria / Ines Culture, Blood #2 (11/09/2021 8:25 PM CDT) Patholo gist Method Time Signature Bacteria/Adriana No growth 11/14/2021 DTL da Culture, after 5 10:02 PM CDT Blood days of incubation. Specimen (Source) Anatomical Collection Method Collection Time Re ceived Time Location / / Volume Laterality Blood (Blood, 11/09/2021 8:25 11/09/2021 9:40 Peripheral Draw) PM CDT PM CDT Comment: Specimen Source Site: Blood Narrative [facility] - 11/14/2021 10:02 PM CDT Received Bactec Peds bottle Dina Campa M.D. LAB MICROBIOLOGY - GENERAL O RDERABLES Performing Organization Address City/[facility]/ZIP Code Phon e Number [facility] - [address] [place], [place] [address] [place], [place] [id number] [place] [address] Bacteria / Ines Culture, Blood #1 (11/09/2021 7:10 PM CDT) Patholo gist Method Time Signature Bacteria/Adriana No growth 11/14/2021 DTL da Culture, after 5 8:02 PM CDT Blood days of incubation. Specimen (Source) Anatomical Collection Method Collection Time Re ceived Time Location / / Volume Laterality Blood (Blood, 11/09/2021 7:10 11/09/2021 7:43 Peripheral Draw) PM CDT PM CDT Comment: Specimen Source Site: Blood Narrative [facility] - 11/14/2021 8:02 PM CDT Received Bactec Peds bottle Dina Campa M.D. LAB MICROBIOLOGY - GENERAL O RDERAPREMA Performing Organization Address City/[facility]/ZIP [facility] Phon e Number [facility] - [address] Phosphorus Inorganic (11/09/2021 7:09 PM CDT) P athologist Signature Phosphorus 4.3 2.5 - 4.5 11/09/2021 DTL (Inorganic), S mg/dL 8:15 PM CDT Specimen Anatomical Collection Method Collection Time Receive d Time (Source) Location / / Volume Laterality Blood (Blood, 11/09/2021 7:09 PM 11/10/19 7:44 Venous) CDT PM CDT Dina Campa M.D. LAB BLOOD ADD-ON Performing Organization Address City/[facility]/ZIP [facility] Phon e Number [facility] - [address] [place], [place] [address] [place], [place] [id number] [place] [address] [address] [facility] AFP (Alpha-Fetoprotein), Tumor Marker (11/09/2021 7:09 PM CDT) athologist Signature Alpha-Fetoprote 6.4 ng/mL 11/10/2021 [facility] in, Tumor 3:04 PM CDT Marker, S Comment: ----REFERENCE VALUE---- <8.4 Reference values are for non- subjects only; production of AFP elevates values in women. ----ADDITIONAL INFORMATION---- In this Richie [place] assay AFP concen trations are <8.4 ng/mL [...] method is an immunoenzymatic assay manufactured by [employer]. and is tested on the Richie [employer] Unicel DxI 800. Values obtained with different [...] Organization Address City/State/ZIP Code Phon e Number [facility] [address] [place], [place] [address] SUPPORT CENTER [facility] [place] [address] Laboratory Medicine and Pathology [address] [place] (ABNORMAL) Magnesium (11/09/2021 7:09 PM CDT) athologist Signature Magnesium, S 1.6 (L) 1.7 - 2.3 11/09/2021 DTL mg/dL 8:07 PM CDT Specimen Anatomical Collection Method Collection Time Receive d Time (Source) Location / / Volume Laterality Blood (Blood, 11/09/2021 7:09 PM 11/10/19 22 7:44 Venous) CDT PM CDT Dina Campa M.D. LAB BLOOD ADD-ON Performing Organization Address [facility] Phon e Number [facility] - [address] [place] [address] 05 [facility] DTL [place] [id number] [address] (ABNORMAL) Lactate, baseline (11/09/2021 7:09 PM CDT) athologist Signature Lactate, P 2.7 (H) 0.5 - 2.2 11/09/2021 STMA mmol/L 7:35 PM CDT Specimen Anatomical Collection Method Collection Time Receive d Time (Source) Location / / Volume Laterality Blood (Blood, 11/09/2021 7:09 PM 11/10/19 22 7:20 Venous) CDT PM CDT Dina Campa M.D. LAB BLOOD NON ADD-ON Performing Organization Address City/[facility] Phon e Number [facility] - [address] [place], [place] [address] [facility] [place] [address] (ABNORMAL) Hepatic Function Panel (11/09/2021 7:09 PM CDT) Patholo gist Method Time Signature Bilirubin, Total, S 16.9 (H) <=1.2 11/09/2021 DTL mg/dL 8:15 PM CDT Bilirubin, Direct, S 9.3 (H) 0.0 - 0.3 11/09/2021 DTL mg/dL 8:15 PM CDT Aspartate 66 (H) 8 - 43 11/09/2021 DTL Aminotransferase U/L 8:15 PM CDT (AST), S Alanine 20 7 - 45 11/09/2021 DTL Aminotransferase U/L 8:15 PM CDT (ALT), S Alkaline 196 (H) 35 - 104 11/09/2021 DTL Phosphatase, S U/L 8:15 PM CDT Albumin, S 2.8 (L) 3.5 - 5.0 11/09/2021 DTL g/dL 8:15 PM CDT Protein, Total, S 4.8 (L) 6.3 - 7.9 11/09/2021 DTL g/dL 8:54 PM CDT Specimen Anatomical Collection Method Collection Time Receive d Time (Source) Location / / Volume Laterality Blood (Blood, 11/09/2021 7:09 PM 11/10/19 22 7:44 Venous) CDT PM CDT Dina Campa M.D. LAB BLOOD ADD-ON Performing Organization Address City/State/ZIP Code Phon e Number [facility] - [address] [place] [address] [facility] [place] [place] [address] [facility] 200 [facility] (ABNORMAL) Basic Metabolic Panel (11/09/2021 7:09 PM CDT) Analysis Performed At Patho logist Time Signature Potassium, S 4.8 3.6 - 5.2 11/09/2021 DTL mmol/L 8:15 PM CDT Sodium, S 131 (L) 135 - 145 11/09/2021 DTL mmol/L 8:15 PM CDT Chloride, S 101 98 - 107 11/09/2021 DTL mmol/L 8:15 PM CDT Bicarbonate, S 16 (L) 22 - 29 11/09/2021 DTL mmol/L 8:15 PM CDT Anion Gap 14 7 - 15 11/09/2021 DTL 8:15 PM CDT BUN (Blood Urea 26 (H) 6 - 21 11/09/2021 DTL Nitrogen), S mg/dL 8:15 PM CDT Creatinine 1.58 (H) 0.59 - 11/09/2021 DTL 1.04 mg/dL 9:49 PM CDT eGFR-Non 43 (L) >=60 11/09/2021 DTL Black/ mL/min/BSA 9:49 PM CDT [place] Comment: ----ADDITIONAL INFORMATION---- Estimated GFR calculated using the 2009 CKD_EPI creatinine equation. eGFR-Black/ 50 (L) >=60 mL/min/BSA 2021 9:49 PM CDT DTL Comment: ----ADDITIONAL INFORMATION---- Estimated GFR calculated using the 2009 CKD_EPI creatinine equation. Calcium, Total, S 8.9 8.6 - 10.0 mg/dL 11/09/2021 8:15 PM CDT DTL Glucose, S 100 70 - 140 mg/dL 11/09/2021 8:15 PM CDT D TL Specimen Anatomical Collection Method Collection Time Receive d Time (Source) Location / / Volume Laterality Blood (Blood, 11/09/2021 7:09 PM 11/10/19 7:44 Venous) CDT PM CDT Dina Campa M.D. LAB BLOOD ADD-ON Performing Organization Address City/[facility] Phon e Number [facility] [address] (ABNORMAL) CRP (C-Reactive Protein) (11/09/2021 7:09 PM CDT) P athologist Signature C-Reactive 8.7 (H) <=8.0 mg/L 11/09/2021 DTL Protein (CRP), 8:07 PM CDT S Specimen Anatomical Collection Method Collection Time Receive d Time (Source) Location / / Volume Laterality Blood (Blood, 11/09/2021 7:09 PM 11/10/19 22 7:44 Venous) CDT PM CDT Dina Campa M.D. LAB BLOOD ADD-ON Performing Organization Address City/[facility] Phon e Number [address] (ABNORMAL) CBC with Differential, Blood (11/09/2021 7:09 PM CDT) Patholo gist Method Time Signature Hemoglobin 8.0 (L) 11.6 - 11/09/2021 DTL 15.0 g/dL 7:33 PM CDT Hematocrit 23.3 (L) 35.5 - 11/09/2021 DTL 44.9 % 7:33 PM CDT Erythrocytes 2.16 (L) 3.92 - 11/09/2021 DTL 5.13 7:33 PM CDT x10(12)/L MCV 107.9 (H) 78.2 - 11/09/2021 DTL 97.9 fL 7:33 PM CDT RBC Distrib Width 15.4 12.2 - 11/09/2021 DTL 16.1 % 7:33 PM CDT Platelet Count 70 (L) 157 - 371 11/09/2021 DTL x10(9)/L 7:33 PM CDT Leukocytes 10.0 (H) 3.4 - 9.6 11/09/2021 DTL x10(9)/L 7:33 PM CDT Neutrophils 7.55 (H) 1.56 - 11/09/2021 DTL 6.45 7:33 PM CDT x10(9)/L Lymphocytes 1.25 0.95 - 11/09/2021 DTL 3.07 7:33 PM CDT x10(9)/L Monocytes 1.06 (H) 0.26 - 11/09/2021 DTL 0.81 7:33 PM CDT x10(9)/L Eosinophils 0.13 0.03 - 11/09/2021 DTL 0.48 7:33 PM CDT x10(9)/L Basophils 0.05 0.01 - 11/09/2021 DTL 0.08 7:33 PM CDT x10(9)/L Specimen Anatomical Collection Method Collection Time Receive d Time (Source) Location / / Volume Laterality Blood (Blood, 11/09/2021 7:09 PM 11/10/19 22 7:28 Venous) CDT PM CDT Dina Campa M.D. 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 Cirrhosis Alcoholic (HCC) Ascites Failure Renal Acute (Acute Kidney Injury ) (HCC) Anemia COVID-19 Infection documented in this encounter Admitting Diagnoses Diagnosis Hepatic Encephalopathy Without Coma (HCC ) documented in this encounter Administered Medications Inactive Administered Medications - up to 3 most recent administrations Medication Order MAR Action Action Date Dose Rate Site albumin human 25 % injection 100 g New Bag 11/09/2021 11:55 PM CDT 100 g 100 g, intravenous, Once, On Wed11/09/21 at 2330, For 1 dose, If no infusion rate specified: Administer the 25% solution at 100 mL/hr mwxaaeplyediq-ohtybiailk-jclhwrwi in Lipoderm Given 11/11/2021 9 :38 AM CDT 1 g 2%-5%-5% cream 1 g 1 g, topical, 2 times daily, First dose on Wed11/10/21 at 1330 Given 11/10/2021 9:38 PM CDT 1 g Given 11/10/2021 1:37 PM CDT 1 g bisacodyL suppository 10 mg (DULCOLAX) 10 mg, rectal, Daily PRN, constipation, Starting on Wed11/09/21 at 1749, Ordered sequence of administration: polyethylene glycol, then bisacodyl until BM achieved. ciprofloxacin tablet 500 mg (CIPRO) Given 11/11/2021 6:35 AM CDT 500 mg 500 mg, oral, Daily before breakfast, First dose on Wed11/10/21 at 0900, Take 2 hours before or 6 hours after antacids containing magnesium or aluminum, sucralfate, didanosine, polymeric phosphate binders, or products containing calcium, iron, or zinc., Drug Monitoring Program: Pharmacist to adjust medication dosing based on indication and drug clearance factors., Indications: Prophylaxis, medical Given 11/10/2021 10:49 AM CDT 500 mg fentaNYL injection 25 mcg (SUBLIMAZE) Given 11/10/2021 2:57 PM CDT 25 mcg 25 mcg, intravenous, Every 2 min PRN, sedation, or pain before and during sedation procedure, Starting on Wed11/10/21 at 1430, Intraprocedure (RAD), Administer over 1 minute immediately prior to the procedure. May repeat every 2 minutes to a maximum of 200 mcg, until pain score of 3 or less from baseline. Do not give if respiratory rate is less than 8 breaths/minute Given 11/10/2021 2:55 PM CDT 25 mcg flumazeniL injection 0.2 mg (ROMAZICON) 0.2 mg, intravenous, Once as needed, rev ersal, Starting on Wed11/10/21 at 1430, For 1 dose, Intraprocedure (RAD), Administer once if patient has a RASS score of -4, -5 and has a respiratory rate less than 8 breaths/minute. lactated ringers 20 mL/hr, intravenous, Once as needed, t o keep vein open, Starting on Wed11/10/21 at 1430, For 1 dose, Intraprocedure (RAD) lactulose in sterile water 200 gram/1000 mL enema 1,000 mL 1,000 mL, rectal, 2 times daily PRN, con stipation, encephalopathy, Starting on Wed11/09/21 at 1751, Total dose= 1000 mL; In still ~ 300 mL at a time, and retain for 15-20 minutes each lactulose solution 10 g (CHRONULAC) Given 11/09/2021 10:57 PM CDT 10 g 10 g, gastric tube, 3 times daily, First dose on Wed11/09/21 at 2100 lactulose solution 10 g (CHRONULAC) Given 11/11/2021 9:38 AM CDT 10 g 10 g, oral, 3 times daily, First dose (after last modification) on Wed11/10/21 at 0900 magnesium sulfate in water IVPB 2 g New Bag 11/10/2021 9:18 AM CDT 2 g 25 mL/hr 2 g, intravenous, at 25 mL/hr, Administer over 120 Minutes, Once, On Wed11/10/21 at 0630, For 1 dose, Over 2 hours. midazolam (PF) injection 0.25 mg (VERSED ) 0.25 mg, intravenous, Every 2 min PRN, s edation, RASS -2, Starting on Wed11/10/21 at 1430, Intraprocedure (RAD), May repea t every 2 minutes to a maximum of 5 mg. Do not give if respiratory rate is less than 8 breaths/mi nute. midazolam (PF) injection 0.5 mg (VERSED) Given 11/10/2021 2:58 PM CDT 0.5 mg 0.5 mg, intravenous, Every 2 min PRN, sedation, RASS -1, Starting on Wed11/10/21 at 1430, Intraprocedure (RAD), May repeat every 2 minutes for a maximum of 5 mg. Do not give if respiratory rate is less than 8 breaths/minute. midazolam (PF) injection 1 mg (VERSED) Given 11/10/2021 2:55 PM CDT 1 mg 1 mg, intravenous, Every 2 min PRN, sedation, RASS 0, Starting on Wed11/10/21 at 1430, Intraprocedure (RAD), May repeat every 2 minutes for a maximum of 5 mg. Do not give if respiratory rate is less than 8 breaths/minute. naloxone injection 0.2 mg (NARCAN) 0.2 mg, intravenous, Once as needed, respiratory depre ssion, Starting on Wed11/10/21 at 1430, For 1 dose, Intraproced ure (RAD), Administer once if patient has a RASS score of -4, -5 and has a respiratory rate less t benavidez 8 breaths/minute. ondansetron (PF) injection 4 mg (ZOFRAN) 4 mg, intravenous, Once as needed, nausea, vomiting, S tarting on Wed11/10/21 at 1430, For 1 dose, Intraprocedure (RAD) oxyCODONE IR tablet 2.5 mg (ROXICODONE) Given 11/11/2021 9:38 AM CDT 2.5 mg 2.5 mg, oral, Every 8 hours PRN, severe pain or score 7-10 of 10, Starting on Wed11/10/21 at 1355 Given 11/11/2021 2:03 AM CDT 2.5 mg Given 11/10/2021 4:02 PM CDT 2.5 mg oxyCODONE IR tablet 2.5 mg (ROXICODONE) Given 11/10/2021 10:03 PM CDT 2.5 mg 2.5 mg, oral, Once, On Wed11/10/21 at 2200, For 1 dose oxyCODONE IR tablet 5 mg (ROXICODONE) Given 11/11/2021 11:23 AM CDT 5 mg 5 mg, oral, Once, On Wed11/11/21 at 1015, For 1 dose phytonadione (vitamin K1) 10 mg in New Bag 11/09/2021 9:00 PM CDT 10 mg 51 mL/hr NaCl 0.9% IVPB (AQUA-MEPHYTON) 10 mg, intravenous, at 51 mL/hr, Administer over 60 Minutes, Once, On 11/09/21 at 1915, For 1 dose, Protect from light. polyethylene glycol powder packet 17 g ( MIRALAX) 17 g, oral, Daily PRN, constipation, Starting on Sun at 1749, Ordered sequence of administration: polyethylene glycol, then bisacodyl until BM achieved. Avoid mixing with starch-based thickened liquids. prochlorperazine injection 5 mg (COMPAZI NE) Given 11/11/2021 4:44 AM CDT 5 mg 5 mg, intravenous, Every 6 hours PRN, nausea, vomiting, Starting on Wed11/09/21 at 2349 sodium chloride 0.9 % injection 10 mL 10 mL, intravenous, As needed, line care, Starting on Wed11/10/21 at 1430, Intraprocedure (RAD), Peripheral Intrave nous Catheter and Rapid Infusion Catheter, prior to blood sampling, post blood transfusion or pos t blood sampling sodium chloride 0.9 % injection 3 mL 3 mL, intravenous, As needed, line care, Starting on M on 11/10/21 at 1430, Intraprocedure (RAD), Prior to and following infusion and between multiple consecutive infusions: sodium chloride 0.9 % injection sodium chloride 0.9 % injection 3 mL Given 11/11/2021 9:41 AM CDT 3 mL 3 mL, intravenous, Every 12 hours scheduled, First dose on Wed11/10/21 at 2100, Intraprocedure (RAD), Peripheral Intravenous Catheter and Rapid Infusion Catheter, when no infusion to maintain patency Given 11/10/2021 9:30 PM CDT 3 mL thiamine injection 100 mg (VITAMIN B1) Given 11/11/2021 9:38 AM CDT 100 mg 100 mg, intravenous, Daily, First dose on Wed11/10/21 at 0900, For 3 days Given 11/10/2021 9:17 AM CDT 100 mg documented in this encounter Active and Recently Administered Medications Times are shown in CDT. Scheduled Medication Order 11/09/2021 11/10/2021 11/11/2021 albumin human 25 % injection 100 g (COMPLETED) 4937 (N ew Bag - Provider: Kevon Rich R.N.) 100 g, intravenous, Once, On Wed11/09/21 at 2330, For 1 dose, If no infusion rate specified: Administer the 25% solution at 100 mL/hr [id number] in Lipoderm 2%-5%-5% cream 1 g 1337 (Given - Provider: Neptali Calvillo R.N.)2138 (Given - Provider: Karen Palacio R.N.) 0938 (Given - Provider: Bernardo Nguyen R.N.) 1 g, topical, 2 times daily, First dose on Wed11/10/21 at 1330 ciprofloxacin tablet 500 mg (CIPRO) 1049 (Given - Provider: Neptali Calvillo R.N.) 0635 (Given - Provider: Karen day RSumaNSuma) 500 mg, oral, Daily before breakfast, Fi rst dose on Wed11/10/21 at 0900, Take 2 hours before or 6 hours after antacids containing magnesium or aluminum, sucralfate, didanosine, polymeric phosphate binde rs, or products containing calcium, iron , or zinc., Drug Monitoring Program: Pharmacist to adjust medication dosing based on indication and drug clearance factors., Indications: Prophylaxis, medical lactulose solution 10 g (CHRONULAC) (CANCELED) 2257 (G iven - Provider: Kevon Rich R.N.) 10 g, gastric tube, 3 times daily, First dose on Wed11/09/21 at 2100 lactulose solution 10 g (CHRONULAC) 0923 (Not Given - Provider: Neptali Calvillo R.N. - Reason: Patient/family refused)1338 (Not Given - Provider: Neptali Calvillo R.N. - Reason: Other)2151 (Not Given - Provider: Karen Palacio R.N. - Reason: Other) 0938 (Given - Provider: Bernardo Nguyen R.N.)1400 (Due) 10 g, oral, 3 times daily, First dose (a fter last modification) on Wed11/10/21 at 0900 magnesium sulfate in water IVPB 2 g (COMPLETED) 09 (New Bag - Provider: Neptali Calvillo R.N.) 2 g, intravenous, at 25 mL/hr, Administe r over 120 Minutes, Once, On Wed11/10/21 at 0630, For 1 dose, Over 2 hours. oxyCODONE IR tablet 2.5 mg (ROXICODONE) (COMPLETED) 2202 (Given - Provider: Karen Palacio R.N.) 2.5 mg, oral, Once, On Wed11/10/21 at 2200, For 1 dose oxyCODONE IR tablet 5 mg (ROXICODONE) (COMPLETED) 1123 (Given - Provider: Bernardo Nguyen R.N.) 5 mg, oral, Once, On Wed11/11/21 at 1015, For 1 dose phytonadione (vitamin K1) 10 mg in NaCl 0.9% IVPB (AQU A-MEPHYTON) (COMPLETED) 2100 (New Bag - Provider: Kevon Rihc R.N.) 10 mg, intravenous, at 51 mL/hr, Adminis ter over 60 Minutes, Once, On Wed11/09/21 at 1915, For 1 dose, Protect from light. sodium chloride 0.9 % injection 3 mL 213 0 (Given - Provider: Karen Palacio R.N.) 0941 (Given - Provider: Bernardo Nguyen R.N.) 3 mL, intravenous, Every 12 hours schedu led, First dose on Wed11/10/21 at 2100, Intraprocedure (RAD), Peripheral Intravenous Catheter and Rapid Infusion Catheter, when no infusion to maintain patency thiamine injection 100 mg (VITAMIN B1) 0 917 (Given - Provider: Neptali Calvillo RSumaNSuma) 0938 (Given - Provider: Bernardo Nguyen R.N.) 100 mg, intravenous, Daily, First dose on Wed11/10/21 at 0900, F or 3 days PRN Medication Order 11/09/2021 11/10/2021 11/11/2021 bisacodyL suppository 10 mg (DULCOLAX) 10 mg, rectal, Daily PRN, constipation, Starting on Wed11/09/21 at 1749, Ordered sequence of administration: polyethylene glycol, then bisacodyl until BM achieved. fentaNYL injection 25 mcg (SUBLIMAZE) 14 55 (Given - Provider: Hardy Rosa R.N.)1457 (Given - Provider: Hardy Rosa R.N.) 25 mcg, intravenous, Every 2 min PRN, se dation, or pain before and during sedation procedure, Starting on Wed11/10/21 at 1430, Intraprocedure (RAD), Administer over 1 minute immediately prior to the pro cedure. May repeat every 2 minutes to a maximum of 200 mcg, until pain score of 3 or less from baseline. Do not give if respiratory rate is less than 8 breaths/minute flumazeniL injection 0.2 mg (ROMAZICON) 0.2 mg, intravenous, Once as needed, rev ersal, Starting on Wed11/10/21 at 1430, For 1 dose, Intraprocedure (RAD), Administer once if patient has a RASS score of -4, -5 and has a respiratory rate less than 8 breaths/minute. lactated ringers 20 mL/hr, intravenous, Once as needed, t o keep vein open, Starting on Wed11/10/21 at 1430, For 1 dose, Intraprocedure (RAD) lactulose in sterile water 200 gram/1000 mL enema 1,000 mL 1,000 mL, rectal, 2 times daily PRN, con stipation, encephalopathy, Starting on Wed11/09/21 at 1751, Total dose= 1000 mL; Instill ~ 300 mL at a time, and retain for 15-20 minutes each midazolam (PF) injection 0.25 mg (VERSED) 0.25 mg, intravenous, Every 2 min PRN, s edation, RASS -2, Starting on Wed11/10/21 at 1430, Intraprocedure (RAD), May repeat every 2 minutes to a maximum of 5 mg. Do not give if respiratory rate is less than 8 breaths/minute. midazolam (PF) injection 0.5 mg (VERSED) 6778 (Given - Provider: Hardy Rosa R.N.) 0.5 mg, intravenous, Every 2 min PRN, se dation, RASS -1, Starting on Wed11/10/21 at 1430, Intraprocedure (RAD), May repeat every 2 minutes for a maximum of 5 mg. Do not give if respiratory rate is less than 8 breaths/minute. midazolam (PF) injection 1 mg (VERSED) 1 455 (Given - Provider: Hardy Rosa, R.N.) 1 mg, intravenous, Every 2 min PRN, clemencia tion, RASS 0, Starting on Wed11/10/21 at 1430, Intraprocedure (RAD), May repeat every 2 minutes for a maximum of 5 mg. Do not give if respiratory rate is less than 8 breaths/minute. NaCl 0.9% infusion 20-500 mL/hr, intravenous, Once as neede d, Between Units of Blood Products, Starting on Wed11/10/21 at 1507, For 1 dose, Infuse at the same rate as the blood infusion until tubing cleared. Nurse may red uce rate to 20 mL/hour or as otherwise d irected until next blood infusion arrives then discontinue when infusion complete. naloxone injection 0.2 mg (NARCAN) 0.2 mg, intravenous, Once as needed, res piratory depression, Starting on Wed11/10/21 at 1430, For 1 dose, Intraprocedure (RAD), Administer once if patient has a RASS score of -4, -5 and has a respiratory rate less than 8 breaths/minute. ondansetron (PF) injection 4 mg (ZOFRAN) 4 mg, intravenous, Once as needed, nause a, vomiting, Starting on Wed11/10/21 at 1430, For 1 dose, Intraprocedure (RAD) oxyCODONE IR tablet 2.5 mg (ROXICODONE) 1602 (Given - Provider: Neptali Calvillo R.N.) 0203 (Given - Provider: Karen day, R.N.)0938 (Given - Provider: Bernardo Nguyen R.N.) 2.5 mg, oral, Every 8 hours PRN, severe pain or score 7-10 of 10, Starting on Wed11/10/21 at 1355 polyethylene glycol powder packet 17 g (MIRALAX) 17 g, oral, Daily PRN, constipation, Sta rting on Wed11/09/21 at 1749, Ordered sequence of administration: polyethylene glycol, then bisacodyl until BM achieved. Avoid mixing with starch-based thickened liquids. prochlorperazine injection 5 mg (COMPAZINE) 0444 (Given - Provider: Karen Palacio R.N.) 5 mg, intravenous, Every 6 hours PRN, na usea, vomiting, Starting on 11/09/21 at 2349 sodium chloride 0.9 % injection 10 mL 10 mL, intravenous, As needed, line care , Starting on Wed11/10/21 at 1430, Intraprocedure (RAD), Peripheral Intravenous Catheter and Rapid Infusion Catheter, prior to blood sampling, post blood transfusion or post blood sampling sodium chloride 0.9 % injection 3 mL 3 mL, intravenous, As needed, line care, Starting on Wed11/10/21 at 1430, Intraprocedure (RAD), Prior to and following infusion and between multiple consecutive infusions: sodium chloride 0.9 % injection documented in this encounter Additional Health Concerns Assessment Noted Time PHQ-9 Depression Total Score: 10 10/06/2021 5:00 PM CD T documented as of this encounter Care Teams Flux Core Welder Relationship Specialty Start Date End Date Elsewhere, Pcp PCP - General Family Medicine 03/10/20 11/30/21 [facility] [place] [facility] 08/25/21 Ervin Schroeder MD Referring Provider Family Medicine 03/24/[address] [place] [address] documented as of this encounter
--- OUTSIDE RECORDS SUMMARY | 2021-12-28 23:27 | XMS_ITS | Encounter Summary ---
:1990 Author Organization [facility] Address [address] [place] [address] Care Team Providers Name Role Phone Elsewhere, Pcp Primary Care Provider Unavailable Reason for Visit Reason Comments Medication Question Encounter Details Date Type Department Care Team Description 10/13/2021 Nurse Triage Department of [facility] Jolynn Villarreal M edication Question Medicine, [facility], in [place], [place] (Work) [address] [place] [address] Social History Tobacco Use Types Packs/Day Years [...] do you attend spiritism or Never 2021 yazdanism services? 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 - 10/13/2021 11:34 PM CDT Chief Complaint / Reason for Call Patient is a 31 y.o. female calling regarding Medication Question. Assessment Concern: Legs swollen and itchy Present for: 3 days Home cares tried: Elevate, ice/heat pack sip on water Calling to request: Advice using cortisone cream for itchiness. The recommended disposition is Information or Advice Only Call. Home nurse sets up medications. Nurse encourages patient to elevate and use cool packs for her swelling and if not getting any relief or symptoms worsen, be seen as advised previously. Recommended not using any new medications until consulting with her primary care provider. Caller agrees documented in this encounter Plan of Treatment Upcoming Encounters Date Type Specialty Care Team Description 01/07/2022 Office Visit [facility] Ranjit Red P.A.-C. [address] [place] [address] (Wo rk) 01/12/2022 Appointment Laboratory Medicine Matthew Jerome M.B.B.S., MJules [address] [place] [phone] (Wo rk) 01/12/2022 Appointment Laboratory Medicine Adeline Frazier M.D., Ph.D. [address] [place] [phone] (Gwendolyn rk) 01/13/2022 Telemedicine Transplant Joel Tan L.I.C.S.W., M.S. W. [address] [place] [phone] (Gwendolyn rk) 01/13/2022 Telemedicine Transplant Matthew Jerome M.B.B.S., MJules [address] [place] [phone] (Gwendolyn rk) 01/13/2022 Telemedicine Transplant Adeline Frazier M.D., Ph.D. [address] [place] [phone] (Gwendolyn rk) 01/28/2022 Office Visit Gastroenterology and Matthew Jerome, Hepatology JoshuaBMinooSSuma, MJules [address] [place] [phone] (Gwendolyn rk) Scheduled Procedures Name Priority [...] documented as of this encounter Care Teams Acid Strength Inspector Relationship Specialty Start Date End Date Elsewhere, Pcp PCP - General Family Medicine 03/10/20 11/30/21 [facility] [place] [facility] 08/25/21 Ervin Schroeder MD Referring Provider Family Medicine 03/24/[address] [place] [phone] documented as of this encounter
--- OUTSIDE RECORDS SUMMARY | 2021-12-28 23:27 | XMS_ITS | Encounter Summary ---
:1990 Author Organization [facility] Address [address] [place] [address] Care Team Providers Name Role Phone Elsewhere, Pcp Primary Care Provider Unavailable Encounter Details Date Type Department Care Team Description 11/10/2021 Episode Changes [facility] and [place] RGabby, Clinical Regeneration in [facility] [place], [place] [phone] [address] [facility] ([place]) [place] [phone] Social History Tobacco Use Types Packs/Day Years [...] or relatives? How often do you attend hindu or Never 2021 jain services? Do you belong to any clubs or No 07/17/2021 organizations such as hindu groups, unions, fraWritten or athletic groups, or school groups? How [...] place to sleep or slept in a jail (including now)? Education Answer Date Recorded What is the highest level of school Associate degree: ruth barker, 07/16/2021 you have completed or the highest technical, or vocational p rolf degree you have received? 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 [address] [place] [phone] (Gwendolyn rahman) 01/12/2022 Appointment Laboratory Medicine Matthew Jerome M.B.BSumaS., M.D. [address] [place] [phone] (Gwendolyn rahman) 01/12/2022 Appointment Laboratory Medicine Adeline Frazier M.D., Ph.D. [address] [place] [phone] (Gwendolyn rahman) 01/13/2022 Telemedicine Transplant Joel Tan L.I.C.S.W., M.S. W. [address] [place] [phone] (Wo rk) 01/13/2022 Telemedicine Transplant Matthew Jerome M.B.B.S., M.D. [address] [place] [phone] (Wo rk) 01/13/2022 Telemedicine Transplant Adeline Frazier M.D., Ph.D. [address] [place] [phone] (Wo rk) 01/28/2022 Office Visit Gastroenterology and Matthew Jerome, Hepatology Tyrell, M.Slick. [address] [place] [phone] (Wo rk) Scheduled Procedures Name [...] documented as of this encounter Care Teams Specialty Finishing Utility Person Relationship Specialty Start Date End Date Elsewhere, Pcp PCP - General Family Medicine 03/10/20 11/30/21 [facility] [place] [facility] 08/25/21 Ervin Schroeder MD Referring Provider Family Medicine 03/24/[address] [place] [phone] documented as of this encounter
--- OUTSIDE RECORDS SUMMARY | 2021-12-28 23:27 | XMS_ITS | Encounter Summary ---
:1990 Author Organization [facility] Address [address] [place] [phone] Care Team Providers Name Role Phone Elsewhere, Pcp Primary Care Provider Unavailable Reason for Visit Reason Comments Follow up on caregiver plan Encounter Details Date Type Department Care Team Description 10/17/2021 Clinical Ramirez Santana, Follow up on Communication Center for Joel Gannon caregiver plan Transplantation and L.I.C.S.W., Clinical Regeneration M.S.W. in [address] [place] [address] [place], [place] [phone] (Work) [phone] Social History Tobacco Use Types Packs/Day Years [...] do you attend pentecostal or Never 2021 gnosticist services? Do you belong to any clubs or No 07/17/2021 organizations such as pentecostal groups, unions, fraSerene Oncology or athletic groups, or school groups? How [...] at Date Recorded Female 04/12/2021 7:39 PM SHANK BONER documented as of this encounter Miscellaneous Notes Telephone Encounter - Joel Tan L.I.C.SAgnes., M.S.W. - 10/17/2021 2:03 PM CDT I recently met with the [...] her caregiver plan post- transplant and to have her caregivers vetted by social work. The patient met with Dr. Radhames Neumann with Transplant Pain Psychiatry on 10/06/2021 at which time she further assessed the patient's chronic pain. Dr. Neumann recommended the patient participate in the virtual Complex Persistent Pain Program. The patient met with Dr. Adeline Frazier with Transplant Addictions Psychiatry on 10/10/2021 at which time she recommended the patient complete the transplant center protocol for individuals with a substance use disorder who are interested in pursuing solid organ transplantation which includes the followin. Complete abstinence from alcohol, tobacco, cannabis, prescription opiates, Sedatives/ benzodiazepines, and all substances of abuse. 2. Outpatient level dual-diagnosis addiction treatment to develop relapse prevention skills. 3. Engagement in AA meetings (or other approved recovery meetings), at minimum once weekly. 4. Obtain and utilize a recovery sponsor. 5. Follow plan of care for chronic pain management per Radhames Neumann, Ph.D., L.P. ??in [place] [facility] (Pain Rehabilitation), 10/06/2021: - virtual Complex Persistent Pain Program (CPPP), a 4-hour group-based psychoeducation course that addresses central sensitivity, neuroplasticity, and evidence-based behavioral strategies to enhance functioning; - opioid taper and discontinuation under care of her local prescribing provider. Dr. Frazier has also assigned the patient a PACT score of 1, however did outline in her note positive factors for consideration for Exceptions Pathway. The patient is scheduled to [...] have been read. I called the patient this afternoon (cell phone: [phone]) to attempt again follow up on her caregiver plan for the post-transplant recovery period. I was unable to reach the patient and have left her a voice mail message requesting she call me back. Her medical record indicates she is accepting of detailed voice mail messages left for her, therefore I informed her in my message that I was calling to follow up on her caregiver plan. I will await a return telephone call or portal message in regards to the patient's caregiver plan for the post-transplant recovery period. Once additional caregivers have been identified by the patient, her caregivers will need to be vetted by Transplant Social Work. Shala Shields, M.S.W. 10/17/21 documented in this encounter Plan of Treatment Upcoming Encounters Date Type Specialty Care Team Description 01/07/2022 Office Visit [facility] Ranjit Red P.A.-C. [address] [place] [phone] (Gwendolyn rahman) 01/12/2022 Appointment Laboratory Medicine Matthew Jerome M.B.B.S., M.D. [address] [place] [phone] (Gwendolyn rahman) 01/12/2022 Appointment Laboratory Medicine Adeline Frazier M.D., Ph.D. [address] [place] [phone] (Gwendolyn rahman) 01/13/2022 Telemedicine Transplant Joel Tan L.I.C.S.W., M.S. W. [address] [place] [phone] (Gwendolyn rahman) 01/13/2022 Telemedicine Transplant Matthew Jerome M.B.B.S., M.D. [address] [place] [phone] (Gwendolyn rahman) 01/13/2022 Telemedicine Transplant Adeline Frazier M.D., Ph.D. [address] [place] [phone] (Gwendolyn rahman) 01/28/2022 Office Visit Gastroenterology and Matthew Jerome, Hepatology Lilian Santillan [address] [place] [phone] (Gwendolyn rahman) Scheduled Procedures Name [...] documented as of this encounter Care Teams Analytics Senior Manager Relationship Specialty Start Date End Date Elsewhere, Pcp PCP - General Family Medicine 03/10/20 11/30/21 [facility] [place] [facility] 08/25/21 Ervin Schroeder MD Referring Provider Family Medicine 03/24/[address] [place] [phone] documented as of this encounter
--- OUTSIDE RECORDS SUMMARY | 2021-12-28 23:27 | XMS_ITS | Encounter Summary ---
:1990 Author Organization [facility] Address [address] [place] [address] Care Team Providers Name Role Phone Elsewhere, Pcp Primary Care Provider Unavailable Reason for Visit Reason Comments Nicotine Dependence Outpatient (Routine) - Closed Specialty Diagnoses / Procedures Referred By Contact Refer red To Contact Nicotine Dependence Jessy Crain M.A., C.T.T.S. [address] [place] [phone] Referral ID Status Reason Start Date Expiration Date Visits Requ ested Visits Authorized [id number] Closed 10/01/2021 10/01/2022 1 1 Encounter Details Date Type Department Care Team Description 10/27/2021 Telemedicine Department of Yehuda Crain Dep endence Nicotine Dependence, Jessy Gannon M.A., Cig arettes (Primary [facility], in C.T.T.S. Dx) [place], [place] [address] [facility] [address] [place] [phone] Social History Tobacco Use Types Packs/Day Years [...] or relatives? How often do you attend evangelical or Never 2021 nondenominational services? Do you belong to any clubs or No 07/17/2021 organizations such as evangelical groups, unions, fraHan grass biomass or athletic groups, or school groups? 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 - 10/27/2021 9:00 AM CDT Follow-up visit conducted via real-time audio/video technology by Jessy Crain M.A., C.T.T.S. in [place], [place] at [facility] to the patient at home. OBJECTIVE Catia Carias attended a video follow-up appointment regarding her tobacco use. Patient reports she stopped smoking on October 20, 2021 and states, It has not been as bad as I thought it would be. I have not even used any lozenges yet. Christelle reports she has not been feeling the best and that might beattributing to her not wanting to smoke. She reports making a conscious effort to do what she can totake care of herself and this includes, resting, sleeping, and movement through out the day. She reports when she has a thought to smoke, she can distract herself very easily and the thought goes away quickly.She is very proud of herself for stopping smoking and her family and friends are being very supportive. We discussed patient's marijuana use and the benefits of not smoking it. Christelle is going to look into alternative methods of using it. We also, discussed the withdrawal symptoms of marijuana mimic nicotine and she may notice improved sleep and less anxiety if she decides to stop using marijuana. I affirmed patient's success at keeping her quit date. Medications Patient reports that she is currently using Nicotine mini lozenge: 2 mg . ASSESSMENT / PLAN #1 Tobacco Use Disorder Christelle will continue to place as many barriers between herself and relapse. Patient appreciates the support and a follow up video has been scheduled in one month. 35 minutes was spent on tobacco counseling. documented in this encounter Plan of Treatment Upcoming Encounters Date Type Specialty Care Team Description 01/07/2022 Office Visit [facility] Ranjit Red P.A.-C. [address] [place] [phone] (Gwendolyn rahman) 01/12/2022 Appointment Laboratory Medicine Matthew Jerome M.B.B.S., M.D. [address] [place] [phone] (Gwendolyn rahman) 01/12/2022 Appointment Laboratory Medicine Adeline Frazier M.D., Ph.D. [address] [place] [address] [phone] (Wo rk) 01/13/2022 Telemedicine Transplant Joel Tan L.I.C.S.W., M.S. W. [address] [place] [phone] (Wo rk) 01/13/2022 Telemedicine Transplant Matthew Jerome M.B.BSumaSSuma, M.D. [address] [place] [phone] (Wo rk) 01/13/2022 Telemedicine Transplant Adeline Frazier M.D., Ph.D. [address] [place] [phone] (Wo rk) 01/28/2022 Office Visit Gastroenterology and Matthew Jerome, Hepatology JoshuaBSumaB.SSuma, MSumaDSuma [address] [place] [phone] (Gwendolyn rk) Scheduled Procedures Name Priority Associated Diagnoses Date/Time ESOPHAGOGASTRODUODENOSCOPY Cirrhosis Alc oholic (HCC) Hypertension Portal (HCC) ESOPHAGOGASTRODUODENOSCOPY Cirrhosis Alc oholic (HCC) Ascites Anemia Macrocytic Thrombocytopenia (HC C) Deficiency Coagulation Acquired (HCC) documented as of this encounter Visit Diagnoses Diagnosis Nicotine Dependence Cigarettes - Primary documented in this encounter Additional Health Concerns Assessment Noted Time PHQ-9 Depression Total Score: 10 10/06/2021 5:00 PM CD T documented as of this encounter Care Teams Premises Technician Relationship Specialty Start Date End Date Elsewhere, Pcp PCP - General Family Medicine 03/10/20 11/30/21 [facility] 08/25/21 Ervin Schroeder MD Referring Provider Family Medicine 03/24/[address] [place] [phone] documented as of this encounter
--- OUTSIDE RECORDS SUMMARY | 2021-12-28 23:27 | XMS_ITS | Encounter Summary ---
:1990 Author Organization [facility] Address [address] [place] [address] Care Team Providers Name Role Phone Elsewhere, Pcp Primary Care Provider Unavailable Reason for Visit Reason Comments Edema Encounter Details Date Type Department Care Team Description 10/13/2021 Nurse Triage [facility] Department of [place], Vanessa Kumar [facility] Family Medicine and Residency in [place], [place] [address] [place] [phone] Social History Tobacco Use Types Packs/Day Years [...] or relatives? How often do you attend caodaism or Never 2021 jainism services? 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 - 10/13/2021 11:17 PM CDT Chief Complaint / Reason for Call Patient is a 31 y.o. female calling regarding Edema. Assessment Concern: Patient is having some edema in her legs since she wasn't able to keep her meds down for two days. Patient vomited up her Furosemide and she is swelling more. She has liver failure and has been having some nausea. Present for: 2 days Home cares tried: Elevating her legs Calling to request: advise The recommended disposition is See a health care provider within 24 hours. Reason for Disposition ??? [1] MODERATE leg swelling (e.g., swelling extends up to knees) AND [2] new- onset or worsening Protocols used: LEG SWELLING AND [id number] Care Advice Patient/Caregiver understands and will follow care advice?: Yes, able to teach back LEG SWELLING OR EDEMA: * Elevate your legs or try to lie down one or two times a day for 20 minutes. * Avoid socks with an elastic band at the top. * Wear comfortable shoes. CALL BACK IF: * Breathing difficulty or chest pain occurs * You become worse documented in this encounter Plan of Treatment Upcoming Encounters Date Type Specialty Care Team Description 01/07/2022 Office Visit [facility] Ranjit Red P.A.-C. [address] [place] [phone] (Wo rk) 01/12/2022 Appointment Laboratory Medicine Matthew Jerome M.B.B.S., M.D. [address] [place] [phone] (Wo rk) 01/12/2022 Appointment Laboratory Medicine Adeline Frazier M.D., Ph.D. [address] [place] [phone] (Wo rk) 01/13/2022 Telemedicine Transplant Joel Tan L.I.C.S.W., M.S. W. [address] [place] [phone] (Wo rk) 01/13/2022 Telemedicine Transplant Matthew Jerome M.B.B.SSuma, M.D. [address] [place] [phone] (Wo rk) 01/13/2022 Telemedicine Transplant Adeline Frazier M.D., Ph.D. [address] [place] [phone] (Wo rk) 01/28/2022 Office Visit Gastroenterology and Matthew Jerome, Hepatology FredySSuma, M.[place]. [address] [place] [phone] (Wo rk) Scheduled Procedures Name Priority Associated [...] documented as of this encounter Care Teams Paid Search Manager Relationship Specialty Start Date End Date Elsewhere, Pcp PCP - General Family Medicine 03/10/20 11/30/21 [facility] 08/25/21 Ervin Schroeder MD Referring Provider Family Medicine 03/24/[address] [place] [phone] documented as of this encounter
--- OUTSIDE RECORDS SUMMARY | 2021-12-28 23:27 | XMS_ITS | Encounter Summary ---
:1990 Author Organization [facility] Address [address] [place] [address] Care Team Providers Name Role Phone Elsewhere, Pcp Primary Care Provider Unavailable Encounter Details Date Type Department Care Team Description 11/04/2021 Clinical Communication Department of Symone Beebe Gastroenterology in , [address] [place] [phone] Social History Tobacco Use Types Packs/Day Years [...] do you attend sabianism or Never 2021 latter-day services? Do you belong to any clubs [...] place to sleep or slept in a retirement (including now)? Education Answer Date Recorded What is the highest level of school Associate degree: ruth barker, 07/16/2021 you have completed or the highest technical, or vocational p rolf degree you have received? 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 - 11/04/2021 11:37 AM CDT Pt unable to get her Vit K over the weekend. Last INR was 3.5 on 10/25. Pt rescheduled to 11/[address] Jerome for EGD. Please order labs/ interventions for pt pre procedure. COVID not necessary as she is still under the 90 day umbrella. Called and spoke with pt about reschedule she verbalizes understanding and agrees with POC. She requests message sent through portal with details will send her appointment date and time. Thanks much Symone documented in this encounter Plan of Treatment Upcoming Encounters Date Type Specialty Care Team Description 01/07/2022 Office Visit [facility] Ranjit Red P.A.-C. [address] [place] [phone] (Wo rk) 01/12/2022 Appointment Laboratory Medicine Matthew Jerome M.B.B.SSuma, MCee. [address] [place] [phone] (Wo rk) 01/12/2022 Appointment Laboratory Medicine Adeline Frazier M.D., Ph.D. [address] [place] [address] [phone] (Wo rk) 01/13/2022 Telemedicine Transplant Joel Tan L.I.C.S.W., M.S. W. [address] [place] [phone] (Wo rk) 01/13/2022 Telemedicine Transplant Matthew Jerome M.B.B.SSuma, M.D. [address] [place] [phone] (Wo rk) 01/13/2022 Telemedicine Transplant Adeline Frazier M.D., Ph.D. [address] [place] [address] [phone] (Wo rk) 01/28/2022 Office Visit Gastroenterology and Matthew Jerome, Hepatology JoshuaBSumaB.SSuma, MCee. [address] [place] [phone] (Wo rk) Scheduled Procedures Name Priority [...] documented as of this encounter Care Teams Sales Representative Facility Services Relationship Specialty Start Date End Date Elsewhere, Pcp PCP - General Family Medicine 03/10/20 11/30/21 [facility] 08/25/21 Ervin Schroeder MD Referring Provider Family Medicine 03/24/[address] [place] [phone] documented as of this encounter
--- OUTSIDE RECORDS SUMMARY | 2021-12-28 23:27 | XMS_ITS | Encounter Summary ---
:1990 Author Organization [facility] Address [address] [place] [phone] Care Team Providers Name Role Phone Elsewhere, Pcp Primary Care Provider Unavailable Reason for Visit Transplant (Routine) - Closed Specialty Diagnoses / Procedures Referred By Contact Refer red To Contact Transplant Surgery / Diagnoses Cirrhosis Alcoholic (HCC) Abnormal Liver Function Test Ascites Pretransplant Recipient Evaluation Exam [facility] M[facility] [address] [place] [phone] Referral ID Status Reason Start Date Expiration Date Visits Requ ested Visits Authorized [id number] Closed 08/25/2021 08/25/2022 1 1 Encounter Details Date Type Department Care Team Description 10/22/2021 Telemedicine Warren Carter M.D., M.P.H. [address] [place] [address] [phone] Moderate Or Severe Use Disorder (Depende nce) Alcohol Remission (HCC) (Primary Dx); Brigid Graham M.D. [address] [place] [phone] Bulimia Nervosa (HCC); Transplantation and Anorexia Nervosa Restricting Type (HCC); Clinical Regeneration in Anx iety Generalized Disorder; [place], [place] Cirrhosis Alcoholic (HCC); [address] [facility] Ascites; [place] [address] Abnormal Liver Function Test ; [phone] Pretransplant R ecipient Evaluation Exam; Preoperative Ex am Social History Tobacco Use Types Packs/Day Years [...] do you attend temple or Never 2021 rastafarian services? Do you belong to any clubs [...] or the highest technical, or vocational p [facility] degree you have received? 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 - 10/22/2021 3:00 PM CDT DEMOGRAPHICS Catia Carias [address] [place] [address] 3 [facility] [phone] 31 y.o. REFERRAL SOURCE: Warren Hernández M.D., M.P.H. Consult conducted via real-time audio/video technology by Brigid Sales M.D. in [facility] to the patient in Patient's Home CHIEF COMPLAINT / REASON FOR VISIT Pretransplant psychiatric evaluation SUBJECTIVE I reviewed with the patient that I am part of the transplant treatment team and will be reviewing psychiatric issues and if these are present, may advise further treatment to ensure that if the patientdoes proceed with transplant psychiatric conditions do not jeopardize the patient's ability to manage the requirements of transplant or result in worsening psychiatric symptoms which can impact qualityof life and transplant outcomes. HISTORY OF PRESENT ILLNESS Catia Carias is a 31 y.o. female who presents for evaluation of liver transplantation. I interviewed the patient at the time of this evaluation and reviewed the [facility] record. She has been seen by my colleagues, Dr. Frazier and Dr. Neumann regarding substance and alcohol use issues and ch ronic pain. She reports that she first developed signs of liver disease last fall when she felt unwell and had lower extremity edema. She also had ascites and had an episode of encephalopathy with behavioral changes with manic type symptoms in Mar.She was seen by psychiatry at that time and felt to have encephalopathy. She has little recollection of some of her symptoms from last year. Since then shehas had insomnia. She has also develop neuropathy effecting her hands and feet and has been on THC and opiates for this. She has been advised to discontinue use of these substances but said that she would discontinue them when she is listed for transplant. She was advised by Dr. Neumann to participate in a 4 hour pain program. She reports a past history of anorexia and bulimia. She is unable to tell me what her lowest weight was and apparently has not received psychiatric treatment for this. She has had episodes of purging in her teens and her most recent purging occurred last fall.She did have counseling in the past for generalized anxiety but did not focus on eating disorder symptoms during this treatment and has subsequently not had counseling in the last 5 years. The patient is accepting of the need for a transplant and first learned about this 03/23. Rating Scales: No data recorded APPLE-7 Total Score (max 21): 7 (09/29/21 1402) Audit Score: 0 (09/29/21 1402) Alcohol history: The last alcohol use was 07/21. She notes that she had excessive alcohol use some years ago. Lab Results Component Value Date ALCOHOLURINE Negative 09/30/2021 AMPHTQTU Negative 09/30/2021 BARBSCRNUR Negative 09/30/2021 BENZOCONFU Presumptive Positive (A) 09/30/2021 COCUR Negative 09/30/2021 METHADMETUR Negative 09/30/2021 OPIATESCRNUR Negative 09/30/2021 PHYCYCLSCR Negative 09/30/2021 THCCRBXYLCQU Presumptive Positive (A) 09/30/2021 Lab Results Component Value Date ETHYLGLUCSCU Negative 09/30/2021 Lab Results Component Value Date PHOSETHANOL NEGATIVE 10/02/2021 Drug Abuse History: As noted in Dr. Frazier's note she has a past history of alcohol use and THC use since her 20s with regular use in the last 6 months related to pain management. She has occasionally used Ativan in the past. Nicotine Use: She recently discontinued smoking. Family Psychiatric History: She believes that her mother has an eating disorder. Her brother has had depression and anxiety, hasbeen hospitalized in the past, history of suicide attempts. Past Medical History: Diagnosis Date ??? Ascites ??? Cirrhosis Alcoholic (HCC) ??? Cirrhosis Of Liver NOS ??? Jaundice Past Surgical History: Procedure Laterality Date ??? ELBOW SURGERY Left 2018 per patient ??? TENDON REPAIR Left left foot per patient No family history on file. Current Outpatient Medications Medication Sig Dispense Refill ??? ciprofloxacin (CIPRO) 500 mg tablet Take 1 tablet (500 mg total) by mouth every morning before breakfast Indications: Prophylaxis, medical. 30 tablet 11 ??? ergocalciferol (DRISDOL) 50,000 Unit capsule Take 50,000 Units by mouth once a week. ??? folic acid 1 mg tablet Take 1 mg by mouth daily. ??? furosemide (LASIX) 20 mg tablet Take 2 tablets (40 mg total) by mouth daily. 30 tablet 1 ??? gabapentin (NEURONTIN) 300 mg capsule Take by mouth 3 (three) times a day. Takes 600 mg in the morning, 600 mg in the afternoon, and 900 mg at bedtime. ??? hydrOXYzine (ATARAX) 25 mg tablet Take 25-50 mg by mouth at bedtime as needed (sleep). ??? lactulose (CHRONULAC) 10 gram/15 mL solution Take 20 g by mouth 3 (three) times a day. Titrate to 3 BM daily; doesn't need to use often ??? levonorgestreL (MIRENA) 20 mcg/24 hours (7 yrs) 52 mg IUD 1 each by intrauterine route continuously. ??? LORazepam (ATIVAN) 1 mg tablet Take 1 tablet (1 mg total) by mouth once for [address] scan once 1 tablet 0 ??? magnesium oxide (MAG-OX) 400 mg (241.3 mg magnesium) tablet Take 1 tablet (400 mg total) by mouth 2 (two) times a day before breakfast and dinner. 60 tablet 1 ??? nicotine polacrilex (NICORETTE) 2 mg lozenge Apply 1 lozenge (2 mg total) to cheek as needed forsmoking cessation. 100 each 3 ??? ondansetron ODT (ZOFRAN-ODT) 8 mg disintegrating tablet Take 1 tablet by mouth 3 (three) times aday as needed. ??? oxyCODONE (ROXICODONE) 5 mg immediate release tablet Take 5 mg by mouth 3 (three) times a day asneeded for pain. ??? pantoprazole (PROTONIX) 40 mg EC tablet Take 1 tablet (40 mg total) by mouth every morning before breakfast. 30 tablet 1 ??? promethazine (PHENERGAN) 25 mg tablet Take 25 mg by mouth every 6 (six) hours as needed for nausea. ??? rOPINIRole XL (REQUIP XL) 2 mg 24 hr tablet Take 2 mg by mouth at bedtime. ??? spironolactone (ALDACTONE) 50 mg tablet Take 2 tablets (100 mg total) by mouth daily. 30 tablet 1 ??? thiamine (VITAMIN B1) 100 mg tablet Take 100 mg by mouth daily. ??? UNABLE TO FIND Apply 1 each topically daily. Med Name: Medical Cannabis [place] (50 mg THC/oz) 0.2% THC/CBD <0.1% ??? UNABLE TO FIND Inhale 1 each as needed. Med Name: Medical Cannabis Flower, smoking once weekly as needed for sleep; details unclear ??? vitamin A 3,000 mcg (10,000 Unit) capsule Take 1 capsule (3,000 mcg total) by mouth 3 (three) times a week for 50 doses. 50 capsule 0 No current facility-administered medications for this visit. Social History: She lives with her boyfriend. Social History Socioeconomic History ??? Marital status: Single Spouse name: Not on file ??? Number of children: Not on file ??? Years of education: Not on file ??? Highest education level: Associate degree: occupational, technical, or vocational program Occupational History ??? Not on file Tobacco Use ??? Smoking status: Current Every Day Smoker Packs/day: 1.00 Years: 12.00 Pack years: 12.00 Types: Cigarettes Start date: 05/03/2009 ??? Smokeless tobacco: Never Used ??? Tobacco comment: 2-3 cpd since July 27, 2021 Vaping Use ??? Vaping Use: never used Substance and Sexual Activity ??? Alcohol use: Not Currently ??? Drug use: Yes Types: Marijuana Comment: daily - medical card, plus non medical, last 07/06/ ??? Sexual activity: Not on file Other Topics Concern ??? Not on file Social History Narrative ??? Not on file Social Determinants of Health Financial Resource Strain: High Risk ??? Difficulty of Paying Living Expenses: Very hard Food Insecurity: No Food Insecurity ??? Worried About Running Out of Food in the Last Year: Never true ??? Ran Out of Food in the Last Year: Never true Transportation Needs: Unmet Transportation Needs ??? Lack of Transportation (Medical): Yes ??? Lack of Transportation (Non-Medical): Yes Physical Activity: Unknown ??? Days of Exercise per Week: 0 days ??? Minutes of Exercise per Session: Patient refused Stress: No Stress Concern Present ??? Feeling of Stress : Only a little Social Connections: Moderately Isolated ??? Frequency of Communication with Friends and Family: More than three times a week ??? Frequency of Social Gatherings with Friends and Family: Twice a week ??? Attends Anabaptist Services: Never ??? Active Member of Clubs or Organizations: No ??? Attends Club or Organization Meetings: Patient refused ??? Marital Status: Living with partner Intimate Partner Violence: Not At Risk ??? Fear of Current or Ex-Partner: No ??? Emotionally Abused: No ??? Physically Abused: No ??? Sexually Abused: No Housing Stability: Low Risk ??? Unable to Pay for Housing in the Last Year: No ??? Number of Places Lived in the Last Year: 1 ??? Unstable Housing in the Last Year: No Developmental History: Her parents when she was 20. Sibship: She has 5 siblings. Adverse childhood experiences: None reported during the social work assessment. Educational attainment: Associates degree service: No Occupational history: She worked at [employer] Marital/partner status: She has been with her boyfriend for 12 years. Children: No Anabaptist/spiritual: None reported. Support network: She is not connected to community organizations. OBJECTIVE Mental Status Examination: Appearance/behavior: She was a pleasant alert cooperative woman who gave a detailed account of her history. Consciousness/orientation: She was oriented in 3 spheres. Cooperation/reliability: Cooperation and reliability were good. Mood/affect: Mood and affect were anxious about her transplant status. Speech/language: Speech was normal in rate and content. Thought Form: Thought form was linear. Thought Content: No delusions. Perception: No hallucinations. Cognition/memory: Within normal limits. Attention/concentration: Within normal limits. Knowledge: Within normal limits. Abstraction: Within normal limits. Judgment: Good Insight/motivation: She was motivated for treatment. Suicidal ideation or Assaultive ideation: None ASSESSMENT / PLAN #1 Moderate Or Severe Use Disorder (Dependence) Alcohol Remission (HCC) #2 Bulimia Nervosa (HCC) #3 Anorexia Nervosa Restricting Type (HCC) #4 Anxiety Generalized Disorder #5 Cirrhosis Alcoholic (HCC) #6 Ascites #7 Abnormal Liver Function Test #8 Pretransplant Recipient Evaluation Exam #9 Preoperative Exam Plan: She has not discontinue opiate and THC use and I will speak with Dr. Frazier to have her team follow up with the patient about these recommendations. At this point, I believe that this would be the priority followed by further assessment and treatment of eating disorders. She currently denies restricting or purging behaviors and in the future could be referred to the [facility] for further assessment and treatment. 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 Using clear language, we reviewed the condition, explanation of treatment, follow up care instructions, including the patient in the decision making process and offered them the opportunity to ask any questions for clarification. documented in this encounter Plan of Treatment Upcoming Encounters Date Type Specialty Care Team Description 01/07/2022 Office Visit Community Internal Medicine Ranjit Red P.A.-C. [address] [place] [phone] (Gwendolyn rahman) 01/12/2022 Appointment Laboratory Medicine Matthew Jerome M.B.BSumaSSuma, M.D. [address] [place] [phone] (Gwendolyn rahman) 01/12/2022 Appointment Laboratory Medicine Adeline Frazier M.D., Ph.D. [address] [place] [phone] (Gwendolyn rahman) 01/13/2022 Telemedicine Transplant Joel Tan L.I.C.SSumaWSuma, M.S. W. [address] [place] [phone] (Gwendolyn rahman) 01/13/2022 Telemedicine Transplant Matthew Jerome M.B.B.SSuma, M.D. [address] [place] [phone] (Gwendolyn rahman) 01/13/2022 Telemedicine Transplant Adeline Frazier M.D., Ph.D. [address] [place] [phone] (Gwendolyn rk) 01/28/2022 Office Visit Gastroenterology and Matthew Jerome, Hepatology Ty[place], Lilian [address] [place] [phone] (Gwendolyn rahman) Scheduled Procedures Name Priority Associated Diagnoses Date/Time ESOPHAGOGASTRODUODENOSCOPY Cirrhosis Alc oholic (HCC) Hypertension Portal (HCC) ESOPHAGOGASTRODUODENOSCOPY Cirrhosis Alc oholic (HCC) Ascites Anemia Macrocytic Thrombocytopenia (HC C) Deficiency Coagulation Acquired (HCC) documented as of this encounter Visit Diagnoses Diagnosis Moderate Or Severe Use Disorder (Depende nce) Alcohol Remission (HCC) - Primary Bulimia Nervosa (HCC) Anorexia Nervosa Restricting Type (HCC) Anxiety Generalized Disorder Cirrhosis Alcoholic (HCC) Ascites Abnormal Liver Function Test Pretransplant Recipient Evaluation Exam Preoperative Exam documented in this encounter Additional Health Concerns Assessment Noted Time PHQ-9 Depression Total Score: 10 10/06/2021 5:00 PM CD T documented as of this encounter Care Teams Channel Cementer Insole Machine Relationship Specialty Start Date End Date Elsewhere, Pcp PCP - General Family Medicine 03/10/20 11/30/21 [facility] [place] [facility] 08/25/21 Ervin Schroeder MD Referring Provider Family Medicine 03/24/[address] [place] [phone] documented as of this encounter
--- OUTSIDE RECORDS SUMMARY | 2021-12-28 23:27 | XMS_ITS | Encounter Summary ---
:1990 Author Organization [facility] Address [address] [place] [address] Care Team Providers Name Role Phone Elsewhere, Pcp Primary Care Provider Unavailable Reason for Visit Reason Comments Fatigue Encounter Details Date Type Department Care Team Description 10/17/2021 Nurse Triage Department of Laura Flor, Fatigue Medicine, [facility], R.N. in [facility] pedro [address] [facility] [address] [place] [phone] Social History Tobacco Use Types Packs/Day Years [...] or relatives? How often do you attend orthodoxy or Never 2021 jehovah's witness services? Do you belong to any clubs or No 07/17/2021 organizations such as orthodoxy groups, unions, [employer] or athletic groups, or school groups? 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 - 10/17/2021 9:43 PM CDT Chief Complaint / Reason for Call Patient is a 31 y.o. female calling regarding Fatigue. Assessment Concern: States has not been feeling well the past 3 days. States thought was having a bad day due to cirrhosis, states has turned into a bad week. States does not feel well. 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 States legs are swollen which is not new. States overall does not feelwell, states has been sleeping non-stop. States is not having any symptoms out of the ordinary. States has normal pain in legs. Denies SOB or chest pain. Denies abdominal pain. States has a little swelling in abdomen, states does not believe it's ascites, states is able to push on stomach. States always feels lightheaded and dizzy, states skin & eyes are always yellow denies increase. States is drinking and making urine. Denies fever. Advised patient to go to PCP /SDC tomorrow, or could even call [facility] tomorrow to make appointment, patient states, I'm not going to do that Present for: week Home cares tried: Rest, pain medications Calling to request: advice The recommended disposition is See a health care provider within 24 hours. Care Advice Patient/Caregiver understands and will follow care advice?: Yes, able to teach back SEE PCP WITHIN 24 HOURS: * IF OFFICE WILL BE OPEN: You need to be examined within the next 24 hours. Call your doctor (or HOSPITALITY AIDE/PA) when the office opens and make an appointment. * IF OFFICE WILL BE CLOSED: You need to be seen within the next 24 hours. A clinic or an urgent carecenter is often a good source of care if your doctor's office is closed or you can't get an appointment. * IF PATIENT HAS NO PCP: Refer patient to a clinic or urgent care center. Also try to help caller find a PCP for future care. NOTE TO TRIAGER: * Use nurse judgment to select the most appropriate source of care. * Consider both the urgency of the patient's symptoms AND what resources may be needed to evaluate and manage the patient. CALL BACK IF: * You become worse CARE ADVICE given per Weakness and Fatigue (Adult) guideline. Reason for Disposition ? ? [1] MODERATE weakness (i.e., interferes with work, school, normal activities) AND [2] persists > 3 days Protocols used: WEAKNESS (GENERALIZED) AND [id number] documented in this encounter Plan of Treatment Upcoming Encounters Date Type Specialty Care Team Description 01/07/2022 Office Visit Community Internal Medicine Ranjit Red P.A.-C. [address] [place] [phone] (Wo rk) 01/12/2022 Appointment Laboratory Medicine Matthew Jerome M.B.B.S., M.Jeri [address] [place] [phone] (Wo rk) 01/12/2022 Appointment Laboratory Medicine Adeline Frazier M.D., Ph.D. [address] [place] [phone] (Wo rk) 01/13/2022 Telemedicine Transplant Joel Tan L.I.C.S.W., M.S. W. [address] [place] [phone] (Wo rk) 01/13/2022 Telemedicine Transplant Matthew Jerome M.B.B.S., M.Slick. [address] [place] [phone] (Wo rk) 01/13/2022 Telemedicine Transplant Adeline Frazier M.D., Ph.D. 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
--- NOTE | 2021-12-28 23:28 | ED_ITS ---
HPI - Back Pain/Injury General Date Seen: 12/28/21 Chief Complaint: Abdominal Pain Stated Complaint: Back pain Time Seen by Provider: 12/28/21 22:17 Source: patient Mode of arrival: EMS Limitations: no limitations History of Present Illness HPI Narrative: Patient is a 31-year-old female with an unfortunate history of hepatic failure, currently on the transplant list, who presents here with her chronic back pain. With radiation to both of her legs. She was taken off all of her narcotic medications and her gabapentin in October, and waiting for the transplant. She is on able to be on narcotic medications chronically as she was on the oxycodone before. She tells me she has low back pain and her ladder derm patch only works plus or minus for this. Tonight the pain became worse and she called the ambulance to bring her to the emergency room. She was in the [place] emergency room a week ago with similar complaints, they gave her Toradol and Flexeril by her showing me the reports from [facility]. This helped her pain greatly, she is requesting that again here. She denies any falls or injury, any bowel or bladder issues. She denies any abdominal pain and says her abdominal abdomen actually feels good since they tapped her a week ago. She denies any fevers chills or sweats, dysuria frequency, or any other complaints such as numbness tingling or weakness. Work related injury: No Related Data Home Medications Medication Instructions Recorded Confirmed folic acid 1 mg tablet 1 mg PO QDAY 10/31/21 10/31/21 levonorgestrel 20 mcg/24 hours (7 1 intrauterine ONCE 10/31/21 10/31/21 yrs) 52 mg intrauterine device diazepam 5 mg tablet 5 mg PO .hs 11/12/21 furosemide 20 mg tablet 40 mg PO QAM 11/12/21 ondansetron 8 mg disintegrating 8 mg PO TID PRN 11/12/21 tablet spironolactone 50 mg tablet 100 mg PO QDAY 11/12/21 thiamine HCl (vitamin B1) 100 mg 100 mg PO QDAY 11/12/21 tablet Previous Rx's Medication Instructions Recorded phytonadione (vitamin K1) 5 mg 10 mg PO QDAY #10 tabs 11/05/21 tablet pantoprazole 40 mg tablet,delayed 40 mg PO QDAY #30 tabs 11/25/21 release rifaximin 550 mg tablet (Xifaxan) 550 mg PO BID #60 tabs 11/25/21 magnesium oxide 400 mg PO BID #180 caps 12/04/21 trazodone 50 mg tablet 50 mg PO QDAY #30 tabs 12/04/21 vitamin A 10,000 unit capsule 10,000 unit PO .COMPLEX #40 caps 12/04/21 zinc sulfate 50 mg zinc (220 mg) 50 mg PO QDAY #90 caps 12/04/21 capsule ergocalciferol (vitamin D2) 1,250 50,000 unit PO .Once Weekly #12 12/12/21 mcg (50,000 unit) capsule caps lactulose 10 gram/15 mL oral 20 g (30 mL) PO TID #946 mL 12/12/21 solution lorazepam 1 mg tablet 1 mg PO QDAY PRN anxiety #5 tabs 12/26/21 sulfamethoxazole 800 1 tab PO QDAY #30 tabs 12/26/21 mg-trimethoprim 160 mg tablet (Bactrim DS) Allergies Allergy/AdvReac Type Severity Reaction Status Date / Time azithromycin Allergy Unknown Vomiting Verified 12/28/21 22:18 gabapentin Allergy Unknown Uncoded 12/28/21 22:18 Review of Systems Status of ROS: Reports: 10 or more systems reviewed and unremarkable except as noted in History and below [facility] Medical History Abdominal ascites Allergic rhinitis Anemia in chronic kidney disease Attention deficit hyperactivity disorder (ADHD) Chronic leg pain Chronic pancreatitis (01/23/21) Congenital QT prolongation on electrocardiography (01/30/21) Gastroesophageal reflux disease without esophagitis (04/16/19) Generalized anxiety disorder with panic attacks Hepatic cirrhosis Hepatic encephalopathy Hepatic neuropathy History of migraine Insomnia Malpositioned intrauterine device (IUD) Patent foramen ovale (03/2020) Pyelonephritis Restless legs syndrome Stage 4 chronic kidney disease Tobacco abuse Vitamin D deficiency Surgical History History of foot surgery Status post hardware removal (06/27/19) Family History Father Hyperlipidemia Maternal Grandfather High blood pressure Prostate cancer Other Type 2 diabetes mellitus Social History Narrative: marijuana use single, no kids, Олег Ochoa, smoker, sober x 1 year Smoking Status: Former smoker Do you use any of these nicotine containing products: None Second hand tobacco smoke exposure: No How often do you have a drink containing alcohol: never AUDIT-C Alcohol total score: 0 Non-prescribed substance use: denies use Exam Narrative: Exam Narrative: I find her in room 6 in no apparent distress, her skin is yellow which is consistent with previous visits. She opens her eyes, interacts with me normally. Her hydration status is normal, she does not have asterixis. Neck is supple chest is clear heart sounds are normal, her abdomen is protuberant, with slight bruising noted over previous areas of paracentesis, she has obvious ascites, with shifting dullness but absolutely no tenderness on palpation. She is able to sit up for me, her back is palpated there is no tenderness rash notable. Percussion and palpation are negative. She is able to move her legs normally, bend them at the knees and hips. And straight leg raising is negative bilaterally, there is no edema noted of her lower extremities. Const: Vital Signs, click to edit/add: Vital Signs - 24 hr 12/28/21 22:13 12/28/21 23:30 Temperature 97.3 F L Pulse Rate [Right Pulse Oximeter] 82 87 Respiratory Rate 12 12 Blood Pressure [Le ft Upper Arm] 98/53 L 101/55 L Pulse Oximetry 90 90 Oxygen Delivery Me thod Room Air Room Air Documenting provider has reviewed patient's vital signs: yes Course Course Hospital Course: I discussed with her, that I think a 1 time dose of Toradol 15 mg IV along with Flexeril p.o. would be appropriate. 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 She was fine with this, if this does help her pain for tonight I think this is reasonable, Vital Signs Vital signs: Initial Vital Signs Temperature 97.3 F L 12/28/21 22:13 Temperature Source Temporal Artery Scan 12/28/21 22:13 Pulse Rate 82 12/28/21 22:13 Respiratory Rate 12 12/28/21 22:13 Blood Pressure 98/53 L 12/28/21 22:13 Blood Pressure Mean 68 12/28/21 22:13 Blood Pressure Position Supine 12/28/21 22:13 Pulse Oximetry 90 12/28/21 22:13 Oxygen Delivery Method 12/28/21 22:13 Vital Signs Temperature 97.3 F L 12/28/21 22:13 Pulse Rate 82 12/28/21 22:13 Respiratory Rate 12 12/28/21 22:13 Blood Pressure 98/53 L 12/28/21 22:13 Pulse Oximetry 90 12/28/21 22:13 Oxygen Delivery Method 12/28/21 22:13 Temperature 97.3 F L 12/28/21 22:13 Pulse Rate 87 12/28/21 23:30 Respiratory Rate 12 12/28/21 23:30 Blood Pressure 101/55 L 12/28/21 23:30 Pulse Oximetry 90 12/28/21 23:30 Oxygen Delivery Method 12/28/21 23:30 MDM - Back Pain/Injury MDM Narrative Medical decision making narrative: Life-threatening differential diagnosis considered include: Cauda equina an epidural abscess, other differential diagnosis considered includes sprain, contusion, nerve root entrapment, radiculopathy, muscle spasm, urolithiasis, lumbar fracture, pyelonephritis, appendicitis, biliary colic, as well as other etiologies. The patient denies saddle anesthesia bowel or bladder incontinence or lower extremity weakness, recent weight loss, or history of malignancy. Differential Diagnosis Differential diagnosis: Likely lumbar radiculopathy, sciatica, strain of lumbar region, renal colic, pyelonephritis, thoracic back pain, AAA and discitis Medical Records Attestation: I reviewed the patient's medical records. Discharge Plan Discharge Clinical Impression: Chronic leg pain Qualifiers: Laterality: bilateral Qualified Code(s): M79.604 - Pain in right leg Chronic back pain Qualifiers: Back pain location: low back pain Back pain laterality: bilateral Sciatica presence: without sciatica Qualified Code(s): M54.50 - Low back pain, unspecified Patient Disposition: Home w/ Parent or Adult Condition: Stable Instructions: Chronic Pain (ED), Chronic Back Pain (DC), Leg Pain (ED) Additional Instructions: Home rest continue medications please call your hepatic specialist tomorrow to consider other options available for your chronic pain. I do not want to ruin the fact that you will not be able to get transplant with giving you medications that would impair this process. Prescriptions: No Action levonorgestrel 20 mcg/24 hours (7 yrs) 52 mg intrauterine device 1 intrauterine ONCE folic acid 1 mg tablet 1 mg PO QDAY Label Comments: TAKE 1 TABLET BY MOUTH DAILY phytonadione (vitamin K1) 5 mg tablet 10 mg PO QDAY Qty: 10 0RF spironolactone 50 mg tablet 100 mg PO QDAY Label Comments: TAKE 1 TABLET BY MOUTH DAILY furosemide 20 mg tablet 40 mg PO QAM ondansetron 8 mg tablet,disintegrating 8 mg PO TID PRN diazepam 5 mg tablet 5 mg PO .hs Label Comments: sleep thiamine HCl (vitamin B1) 100 mg tablet 100 mg PO QDAY Label Comments: TAKE 1 TABLET BY MOUTH DAILY pantoprazole 40 mg tablet,delayed release (DR/EC) 40 mg PO QDAY Qty: 30 5RF Label Comments: TAKE 1 TABLET BY MOUTH DAILY Xifaxan 550 mg tablet 550 mg PO BID Qty: 60 5RF Label Comments: TAKE 1 TABLET BY MOUTH TWICE DAILY trazodone 50 mg tablet 50 mg PO QDAY Qty: 30 0RF vitamin A 10,000 unit capsule 10,000 unit PO .COMPLEX Qty: 40 3RF Rx Instructions: 10,000 units PO 3 times a week; magnesium oxide 400 mg magnesium capsule 400 mg PO BID Qty: 180 3RF zinc sulfate 50 mg zinc (220 mg) capsule 50 mg PO QDAY Qty: 90 3RF ergocalciferol (vitamin D2) 1,250 mcg (50,000 unit) capsule 50,000 unit PO .Once Weekly Qty: 12 3RF lactulose 10 gram/15 mL solution 20 g PO TID Qty: 946 1RF lorazepam 1 mg tablet 1 mg PO QDAY PRN (Reason: anxiety) Qty: 5 0RF Rx Instructions: Take 1 hour before each paracentesis sulfamethoxazole-trimethoprim [Bactrim DS] 800-160 mg tablet 1 tab PO QDAY Qty: 30 2RF Follow Up/Referrals: Ervin Schroeder MD [Primary Care Provider] - Stand Alone Forms: [facility] Info Instructions
--- OUTSIDE RECORDS SUMMARY | 2021-12-28 23:28 | XMS_ITS | Encounter Summary ---
:1990 Author Organization [facility] Address [address] [place] [address] Care Team Providers Name Role Phone Elsewhere, Pcp Primary Care Provider Unavailable Reason for Visit Transplant (Routine) - Closed Specialty Diagnoses / Procedures Referred By Contact Refer red To Contact Transplant Surgery / Diagnoses Cirrhosis Alcoholic (HCC) Abnormal Liver Function Test Ascites Pretransplant Recipient Evaluation Exam [facility] [address] [place] [id number] Referral ID Status Reason Start Date Expiration Date Visits Requ ested Visits Authorized [id number] Closed 08/25/2021 08/25/2022 1 1 Encounter Details Date Type Department Care Team Description 09/30/2021 Clinical Support Warren Carter M.D., M.P.H. [address] [place] [address] [id number] Cirrhosis Alcoholic (HCC); Luis E for Joel Tan L.I.C.S.W., M.S.W. 200 [place] [address] Abnormal Liver Function Test; Transplantation and Ascites; Clinical Regeneration Pretra nsplant Recipient Evaluation Exam; in [facility] Preoperative Exam [address] [place] [address] Social History Tobacco Use Types Packs/Day Years Used Date Smoking Tobacco: Every Day Cigarettes 0.3 Smokeless Tobacco: Never Alcohol Use Standard Drinks/Week Comments Not Currently [...] do you attend alevism or Never 2021 nondenominational services? 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 - 09/30/2021 10:30 AM CDT Transplant Psychosocial Assessment DEMOGRAPHIC INFORMATION SUBJECTIVE Referral Source: Dr. Warren Hernández, Liver Transplant team Patient seen for: pre-transplant of liver Persons present: Patient, who prefers to be called, Christelle, and her mother, Parris Knight. Previous Psychosocial Assessment : No Patient's primary care provider/clinic: Dr. Migue Schroeder at [facility] in [place], [place]. Primary language: Hebrew For this interview, the patient utilized language services: No Citizenship US citizen: Yes [place] resident: Yes Race/Ethnicity: Race: White Ethnicity: Solomon Islander, Descent Disclaimer: ?? The patient and her mother were advised regarding the various topics to be interviewed during this evaluation. The patient consented to proceed in the presence of those present for the evaluation. ?? The information provided in the assessment is based on review of the medical record as well as the interview with the patient and her mother. ?? The patient and her mother were advised that the content of this interview will be shared with the health care team. It was discussed with the patient that staff are mandated reporters and they reported understanding. ?? The role of the Transplant Java Grails Developer was explained. ?? Selection Committee: The patient was educated regarding the process for selection committee. Where was the interview: Outpatient PAST MEDICAL AND SURGICAL HISTORY The patient reports being diagnosed with stage 4 cirrhosis of the liver at the end of January or beginning/middle of January 2021. She stated the cause is due to prior alcohol consumption. The patient stated she as not been evaluated at any other transplant centers. The patient stated her brother has expressed interest in being evaluated as a living liver donor to her. The patient's mother stated there are many more individuals who would be willing to be evaluatedas a living liver donor to the patient. Please refer to the patient's medical record for further medical detail information. TRANSPLANT RISK/UNDERSTANDING/MOTIVATION Patient was educated on the following: selection process, immunosuppression therapy, relocation, length/course of hospitalization, rehab/recovery, personal monitoring & surveillance, post-transplant follow up and dry runs. What is the patient's motivation for transplant? To live. I just turned 31. Does the patient have any concerns about the transplant? The patient stated she does not have any concerns about the transplant procedure or aftercare. Is the patient aware of the living transplant program (kidney, liver, BMT only)? Yes Transplant Social Work assessment is that the patient is in the early stages of learning about livertransplantation and reports motivation to learn. Compliance: The patient denied difficulties following medical recommendations and/or restrictions inthe past. She stated she has never left the hospital, emergency department or clinic appointments against medical advice. The patient has a home health care nurse come to her home once weekly who sets up her medications for her. She has had six visits. The patient stated she has a good idea of what the purpose of her medications are for and stated she knows most of them. She reports knowing when to take them. The patient stated prior to the home health care nurse coming in to set up her medications she wouldmiss medication doses, although stated she does not know how often this occurred stating it likely occurred, More often than I realized. The patient stated since the home health care nurse started toset up her medications she has missed a few medication doses. She stated this occurred if she did not feel well or if she was unexpectedly gone from her home. The patient described herself as being very compliant. Later in conversation when discussing the patient's mental health history she acknowledged that she had stopped taking psychotropic medications on her own in the past. The patient stated she has never not taken a medication due to the concern for the cost of the medication. SOCIAL HISTORY Family of origin: The patient was raised in [place], [place]. Her parents when she was 20 years old. Her mother remarried. The patient calls her step- father, Siva, her bonus father. The patient's mother and step-father live in [place], [place]. The patient's father did not remarry. He lives in [place], [place], which is 10-12 minutes from the patient. The patient has three brothers and two sisters. The patient stated her parents and all of her siblings are aware of her medical condition and that she is being evaluated for liver transplantation. Marital Status / Family / Household: The patient is a 31 year old female. She has never been . She has been in a relationship withher boyfriend, Lobito Brunson (age 32) for 12 years. The patient stated neither she nor her boyfriend have children. Per review of the patient's outside medical record it states in April 2014 she gave and hadan open adoption. I did not discuss this with the patient today. The patient and her boyfriend have one dog and one cat for pets. Education/Employment Highest level of education: Associate/Bachelor Degree (Associate degree) Literacy: The patient denied a history of developmental delay, learning difficulties or having been in special education classes while younger. She stated she had trouble with math and science while younger. She reports difficulty with concentrating in the past and reports having received a diagnosis of ADHD. The patient stated she learns best by doing things hands on and reading. Employment status: Unemployed Working for income: No Reason for not working: Disability Work history: The patient stated she has worked quite a few jobs in the past. She most recently worked in the [employer] department at the [facility] [employer] [employer] in [place], [place]. She stopped working in January 2021 as she was advised to no longer work due to her medical condition. Patient's plan for extended time off for recovery: The patient does not currently have a source of income. Boyfriend's work: The patient's boyfriend works agricultural sciences professor as a paint director of cardiology service line for a powder coating company called [employer]. Spiritual Practices/Presybeterian/Culture Spirituality / Presybeterian / Culture: The patient stated she does not have a nondenominational preference. The patient was informed of the availability of Size Worker Services at [facility]. History The patient stated she has never served in the . Legal History The patient reports receipt of one prior DUI approximately three years ago. Per the patient's outside medical record the patient had a couple of legal issues in the past related to underage consumption. Community Involvement/ Hobbies The patient stated she is not currently involved in any community activities or organizations. The patient shared that she enjoys photography, journaling, crafts, and scrap booking. SOCIAL AND PERSONAL SUPPORT SYSTEMS Psychosocial Risk Factors impacting the patient: chemical health history (alcohol, medical marijuana), mental health, nicotine dependence, chronic pain, need to solidify caregiver plan for the post-transplant recovery period. Abuse, Neglect, Maltreatment, Trauma: Current: Patient denied. Past: Patient denied. ENVIRONMENTAL SUPPORTS Patient's home environment: The patient lives on the upper level of a four-plex. Anticipated modifications to the patient's home environment: None BASELINE FUNCTIONAL STATUS (ADLs and IADLs) Functional Status: Minimum assistance Dressing: independent Bathing: independent Toileting: independent Mobility: independent Meal Prep: independent Medication Setup/Administration: needs assistance Housekeeping: independent ASSISTIVE DEVICES Patient has the following equipment: eyeglasses, thermometer, scale, pillbox. Transportation needs: support from family/friends, public transportation and facility van BASELINE SERVICES/RESOURCES Dialysis: No Services: The patient has a nurse come into her home from [facility] every (phone: [phone]). The nurse sets up the patient's medications in a pillbox, calls in her medication refills for her, checks the patient's vital signs, and checks to see if she is retaining fluid. She has come into the home for the past six weeks. She will not be coming to see the patient this week due to her transplant evaluation and therefore set up the patient's medications for her last week. TRANSPLANT PLAN The patient and her mother were educated on the roles/requirement of a caregiver post-transplant which includes: to provide support in the hospital for the greater part of the day, participate in all of the teachings preparing for care after discharge, provision of 24/7 care after discharge and transportation. The patient and her mother were also educated about the importance of having a back- up caregiving plan in place. Ongoing education will be provided throughout the transplant continuum. The patient and her mother anticipate the patient will have a rotation of caregivers for the post-transplant recovery period that may include the following individuals: Patient's mother, Parris Knight, patient's boyfriend, Lobito Nannette, patient's brother, Ricardo Carias, and patient's boyfriend's moth er, Jo Ann Brunson. The patient reports intention to speak with her boyfriend, her brother and her boyfriend's mother to determine their willingness to assist as caregivers and to have them call meso I can vet them as caregivers. Because the patient's mother was present for the interview, I have listed her details as a caregiver below: Caregivers: Name: Parris Knight Age: 52 Relationship to [...] consistent. Vetted: Yes, in person - 09/30/2021. Does caregiver(s) have a realistic understanding of caregiver role and responsibilities? All of the patient's caregivers have not been vetted, however the patient's mother was able to demonstrate a realistic understanding. Caregiver plan: caregivers not yet confirmed. Transportation Plan: The patient lives approximately one hour from [place]. She would arrive via private vehicle. Relocation Plan: The patient was provided with information on the [facility]. Shewas also provided with information on the Maintenance Shop Laborer Services at [facility] who can assist with answering questions about local lodging accommodations. We did not have an opportunity to discuss these in detail today due to the time constraints of our interview, however I have encouraged the patient tocall me should she have additional questions. FINANCES/INSURANCE Primary insurance: [facility] BLUE PLUS HMO ([place] Medicaid) Secondary/Supplemental insurance: None Does patient have a benefit for travel, lodging and/or meals through insurance? The patient does notknow. I advised her to contact [facility] [employer] to inquire about her eligibility for benefits. Household Information Number of persons in household: Two (patient and her boyfriend) Type of housing: Rent Source of household income: The patient does not currently have a source of income. She stated she is not receiving any assistance (such as food support) through her [facility] [employer] office. She has not yet applied for assistance. The patient's boyfriend has income through his agricultural sciences professor employment wages. Current Financial Concerns: The patient reports her boyfriend is able to pay monthly bills on time although stated, There's not a lot left over. Post-Transplant Financial Concerns: Should the patient not have financial assistance through her [place] Medicaid insurance for travel, lodging and meals when coming for medical appointments and if she wereto have continued financial concerns, this could pose as a barrier to pre- and/or post-transplant follow up care. Other: I discussed SSDI and SSI with the patient today including the application process. Pharmacy Pharmacy coverage: [employer] BLUE PLUS HMO ([place] Medicaid) Current medication(s) received through prescription assistance programs: None Past medication(s) received through prescription assistance programs: None Pharmacy benefits education: The patient was educated and advised to determine the projected range of out of pocket expenses for post-transplant medications, depending on the type of pharmacy coverage provided by insurance. ADVANCE DIRECTIVES/LEGAL STATUS The patient has not completed an advance directive. I provided the patient with [facility]'s blank advance directive booklet and provided her with education on advance directives. I encouraged the patient to provide a copy of an advance directive to [facility], should she completed one in the future, in order for it to get scanned into her medical record. OBJECTIVE MENTAL HEALTH Psychosocial Risks - I advised the patient of the psychosocial risks of having a transplant including depression, anxiety, PTSD, guilt, dependence on a caregiver and financial stressors. Mental Health History: The patient described her mood as Usually pretty good. I have my good days and bad days with this. I'm pretty positive. The patient reports having received diagnoses including ADHD, Generalized anxiety disorder, mild depression and insomnia in the past. She reports a history of panic attacks. She stated she last experienced a panic attack 6-12 months ago when she went to the emergency department. She reports previously sleep walking, eating while sleeping and driving while sleeping as a result of her insomnia. The patient stated she was diagnosed with ADHD in the past due to difficulty with concentrating. She stated she does not feel she continues to have difficulties with this. The patient stated she met with two different psychiatrists (a male and later his ) for a total of four years duration in the past. She reports having been prescribed Ativan, Adderall and Ambien inthe past. She reports having been prescribed medication for depression, of which she could not recall. The patient stated she took myself off all these medications stating she did not think they werenecessary. The patient additionally reports a history of anorexia and bulimia. Her medical record indicates shehas a history of eating disorder between ages [age] (body dysmorphia). The patient stated she last experienced bulimic behaviors at the end of January or early to mid January 2021. She stated something switched in my brain and I did not want to do that anymore. She reports last having restrictive eating related to her anorexia one year ago. The patient stated she has never received mental health care for eating disorders stating, I hid it well. The patient denied prior suicide attempts or ideations. She denied current suicidal or homicidal ideations. Family Mental Health history: The patient and her mother state the patient's brother has a history of depression and he is doing well with psychotropic medication use. Per review of the patient's outside medical record it is noted the following mental health history for other family members: Mother - Depression and severe panic attacks Father - Depression, Prior suicide attempt, ADHD Brother - hospitalized four times for depression and suicide attempts Current psychological symptoms: Appearance: well-groomed and relaxed Behavior observed: calm, pleasant and interactive Level of consciousness: alert and oriented Memory, recent and remote: intact Cooperation: cooperative and forthcoming Attention/Concentration: intact Mood: euthymic Affect: mood-congruent Speech: speech is within normal limits for volume, rate, and tone Thought process: circumstantial Thought content: no abnormality Judgment: adequate Suicide Risk and Safety Risk Assessment: Suicidal: no Homicidal: no Coping abilities and strategies: Current stressors: The patient stated her diagnosis of cirrhosis can be stressful at times. Coping - patient reports these personal coping mechanisms: Journaling. Other Mental Health Assessments PHQ 8 Score: 9 APPLE 7 Score: 7 Audit: 0 Patient's ability to cope with emotional impact of transplant: Patient would benefit from additional coping mechanisms to adjust to the emotional impact of transplant due to her self report of mental health history. SUBSTANCE USE Alcohol: The patient stated she first drank alcohol at age 16. She reports last drinking over one year ago. She stated she stopped drinking on her own because she did not like it. She stated no medicalprovider had advised her to quit drinking in the past. She stated no family members or friends had advised her to quit drinking before she did. The patient stated from ages [age] she would drink perhaps 3-4 days per week, probably 3-4 alcoholicbeverages per occasion. She stated prior to her quitting she would drink maybe 1-2 days per week, 1-2 alcoholic beverages per occasion. The patient stated she has never participated in addiction treatment. She stated she has never attended AA or a similar relapse prevention program. She reports receipt of one DUI approximately 3 years ago. 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 The patient was asked how she is able to maintain her abstinence from alcohol. She stated, I just don't (drink alcohol). The patient denied urges or cravings to drink since she quit. The patient stated her boyfriend, with whom she resides with, will drink maybe a couple of times per week, maybe 1-2 alcoholic beverages per occasion. She stated he will occasionally have alcohol in the home, however stated I am not tempted by it. Tobacco: The patient first smoked cigarettes at age 15. She currently smokes and stated she has reduced the amount she smokes. She stated she went from smoking one pack of cigarettes per day and now one pack of cigarettes will last her one week. The patient stated she has never used chewing tobacco. She stated she has never smoked a pipe or cigar. She stated she has never vaped. Drugs: The patient stated she first smoked cannabis at age 16 or 17. She stated she continued to smoke cannabis until May 2021 at which time she got a medical cannabis card. She stated cannabis always helped me. She stated she has used it in the past To calm me down, to help me sleep and to help with pain. The patient showed me her [place] Medical Cannabis Patient Registration Verification Card on her cell phone. She stated she started using medical cannabis in May 2021 and that it was prescribed for chronic leg pain which she states it is either neuropathy brought on by cirrhosis, longshore equipment operator effects brought on by drugs used to put her in a coma, or for terminal illness. She stated it is also used for insomnia and to increase her appetite. The patient stated she has a topical cannabis cream for pain in her legs, which she feels has workedwell for her. She stated she has a cannabis flower that she smokes, although stated it hurts to cough and she will then only have a couple of puffs. The patient's [place] Medical Cannabis [place] number is: [id number]. Family History: Father - alcohol (past, not currently of concern) Labs: Ethyl Glucuronide screen: 09/30/2021 - negative Urine Drug screen: 09/30/2021 - presumptive positive for benzodiazepines and THC. PEth: 09/30/2021 - in process ASSESSMENT / PLAN DISCUSSION Met with the patient and her mother at the [facility] this morning. The patient is registered for the patient portal. The patient reports a history of nicotine dependence, excessive alcohol consumption, chronic pain, and mental health history (depression, anxiety with panic attacks, ADHD and eating disorder). She is scheduled to meet with Nicotine Dependence staff on 10/01/2021. She is scheduled to meet with Transplant Mood Psychiatry on 10/02/2021. She is scheduled to meet with Transplant Addictions Psychiatry on 10/10/2021. She is scheduled to meet with Pain Psychiatry on 10/06/2021. The patient has identified individuals she feels would be willing to assist as caregivers, however she has not yet confirmed this. I have asked the patient to have these individuals (her boyfriend, jordyn and her boyfriend's mother) call me so I can vet them as caregivers. The patient reports intention to speak with them and to have them contact me. I discussed with the patient and her mother that based on our visit I would recommend deferral for listing for transplantation at this time until she is further evaluated by Transplant Mood Psychiatry,Transplant Addictions Psychiatry and Pain Psychiatry to determine if they will make further recommendations. The patient's caregivers will also need to be vetted. The patient and her mother indicated understanding. The patient stated she would follow any recommendations asked of her in order to be considered a candidate for transplantation. ASSESSMENT The patient is a pleasant 31 year old female who presents for a psychosocial assessment and education visit as part of her comprehensive evaluation for liver transplantation. She presented as alert, oriented, and actively participated in the discussion. The patient's mother, Parris, accompanied her to the visit. She also presented as alert and oriented. She answered questions when they were asked of her directly. Both the patient and her mother took notes in notebooks during our interview which demonstrated their willingness and interest in learning. Mental Health: The patient reports a history of depression, anxiety with panic attacks, ADHD and eating disorder (anorexia and bulimia). She previously took psychotropic medications and stated she tookherself off all of these medications as she did not feel they were necessary. She has met with a psychiatrist in the past but is not at present. Substance Use: The patient reports a history of drinking alcohol excessively. She has not drank alcohol for over one year. She has never participated in addiction treatment nor attended . She currently smokes cigarettes although has reduced the amount she smokes. She has a history of cannabis use since age 16 or 17 and has had a [employer] card since May 2021. Capability of the following complex medical regimen/treatment: The patient appears capable of following a complex medical regimen/treatment. While she reports having stopped psychotropic medications onher own in the past, she reports understanding of the importance of speaking with medical providers s hould she have concerns related to her medications and/or medical care rather than self-managing these on her own. Financial: The patient was advised to contact [facility] social media marketing specialist office to determine if she has a benefit for financial assistance for travel, lodging or meals when coming for medical appointments. She reports interest and intention in applying for SSDI and SSI in the future. Should the patient have continued financial concerns this could pose as a barrier to pre- and/or post- transplant follow up care. Caregiver plan: Caregivers have been identified however not confirmed. The patient is accepting of the need for liver transplantation. She is in the early stages of learning about liver transplant. The patient appears motivated to follow the recommendations of the transplant team. SIPAT: Score: 47 PACT: Score: 1 The patient will be further assessed by Transplant Mood Psychiatry, Transplant Addictions Psychiatryand Pain Psychiatry. I will await to determine if they make any recommendations. The patient's PACT score may be adjusted based on their interviews and additional information obtained. The patient willalso need to have her caregivers vetted to determine she has a suitable caregiver plan. She will also need to quit smoking. Selection Conference Recommendation: Defer: At this time, the patient is recommended for deferral by social work until these issues are addressed: chemical dependency (alcohol), nicotine dependence, mental health, chronic pain, need to confirm caregiver plan. The multidisciplinary team will be advised of this recommendation by social work at the Selection Conference meeting. INTERVENTIONS - Completed comprehensive psychosocial assessment with patient. - Provided supportive counseling regarding the unique experience of coping with a chronic, life-threatening illness & transplantation. - Discussed Advance Health Care Directives. - Discussed and provided psychoeducation on potential for mood changes following transplantation. - Reinforced the importance of careful attention to medical advice. - Reinforced the importance of a secure primary and back-up caregiving plan. Items reviewed: Social Work folder was reviewed and business card provided. Contact encouraged. Resources provided: - [facility] brochure ([id number]) - Patient's Guide to [facility] ([id number]) - Information for Caregivers: Taking Care of Yourself ([id number]) - Preparing for Transplant: Body, Mind, and Spirit ([id number]) - [facility] Advance directive booklet - [facility] financial assistance resource guide - What to Expect as a Transplant Caregiver brochure ([id number]) - National Living Donor Assistance Center brochure - [employer] fundraising brochure - National Foundation for Transplants fundraising brochure - [facility]: 5 Ways to Connect ([id number]) PLAN -The patient will continue through the steps of the evaluation and be presented at a selection conference. -Social Work will remain available to provide further assessment and supportive intervention throughout the evaluation, transplant and recovery process. -Social Work will also be available to assist the patient and family with adjustment issues and community and financial resources. #1 Cirrhosis Alcoholic (HCC) #2 Abnormal Liver Function Test #3 Ascites #4 Pretransplant Recipient Evaluation Exam #5 Preoperative Exam Thank you for the opportunity to participate in the care of this patient. Face to face time (for billing purposes) 105 minutes total time 105 minutes spent in counseling with patient and her mother Shala Shields, M.S.W. 09/30/2021 documented in this encounter Plan of Treatment Upcoming Encounters Date Type Specialty Care Team Description 01/07/2022 Office Visit Community Internal Medicine Ranjit Red P.A.-C. [address] [place] [phone] (Gwendolyn rahman) 01/12/2022 Appointment Laboratory Medicine Matthew Jerome M.B.B.S., MJules [address] [place] [phone] (Gwendolyn rahman) 01/12/2022 Appointment Laboratory Medicine Adeline Frazier M.D., Ph.D. [address] [place] [address] [phone] (Wo rk) 01/13/2022 Telemedicine Transplant Joel Tan L.I.C.S.W., M.S. W. [address] [place] [address] [phone] (Wo rk) 01/13/2022 Telemedicine Transplant Matthew Jerome M.B.B.S., M.D. [address] [place] [phone] (Wo rk) 01/13/2022 Telemedicine Transplant Adeline Frazier M.D., Ph.D. [address] [place] [address] [phone] (Gwendolyn rk) 01/28/2022 Office Visit Gastroenterology and Matthew Jerome, Hepatology JoshuaBSumaB.SSuma, MJules [address] [place] [phone] (Gwendolyn rk) Scheduled Procedures Name Priority Associated Diagnoses Date/Time ESOPHAGOGASTRODUODENOSCOPY Cirrhosis Alc oholic (HCC) Hypertension Portal (HCC) ESOPHAGOGASTRODUODENOSCOPY Cirrhosis Alc oholic (HCC) Ascites Anemia Macrocytic Thrombocytopenia (HC C) Deficiency Coagulation Acquired (HCC) documented as of this encounter Visit Diagnoses Diagnosis Cirrhosis Alcoholic (HCC) Abnormal Liver Function Test Ascites Pretransplant Recipient Evaluation Exam Preoperative Exam documented in this encounter Care Teams Digital Research Analyst Relationship Specialty Start Date End Date Elsewhere, Pcp PCP - General Family Medicine 03/10/20 11/30/21 [facility] [place] [facility] 08/25/21 Ervin Schroeder MD Referring Provider Family Medicine 03/24/[address] [place] [phone] documented as of this encounter
--- OUTSIDE RECORDS SUMMARY | 2021-12-28 23:28 | XMS_ITS | Encounter Summary ---
:1990 Author Organization [facility] Address [address] [place] [address] Care Team Providers Name Role Phone Elsewhere, Pcp Primary Care Provider Unavailable Reason for Referral Transplant (Routine) - Authorized Specialty Diagnoses / Procedures Referred By Contact Refer red To Contact Transplant Surgery / Matthew Grider [facility] M.B.B.S., M.D. [address] [place] [phone] Referral ID Status Reason Start Date Expiration Date Visits V isits Requested Authorized [id number] Authorized 10/27/2021 10/27/2022 1 1 Scheduling Instructions May be phone or video- patient preferenc e. Scheduled in [place]. Thanks Transplant (Routine) - Authorized Specialty Diagnoses / Procedures Referred By Contact Refer red To Contact Transplant Surgery / Matthew Grider [facility] Lilian Santillan [address] [place] [phone] Referral ID Status Reason Start Date Expiration Date Visits V asher Requested Authorized [id number] Authorized 10/27/2021 10/27/2022 1 1 Scheduling Instructions [place] Scheduled in [place]. Thanks Reason for Visit Reason Comments Patient Education 1:1 education Encounter Details Date Type Department Care Team Description 10/01/2021 Education Warren Carter M.D., M.P.H. [address] [place] [address] Cirrhosis Alcoholic (HCC); [facility], [place]ano [place], R.N., C.C.T.C. 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 How often do you attend gnosticism or Never 2021 lutheran services? 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 - 10/01/2021 8:00 AM CDT Diagnosis: ALD ABO: [] A [x] B [] AB [] O UNOS Status: initial evaluation Calculated MELD Score: 32 Appealed/Exception Score: Not applicable Immunizations recommended include:PCV13, pneumo 23, influenza, Hepatitis A, Shingrix, COVID 3rd and booster highly recommended Is this a [employer]/HSB patient: [] Yes [x] No Coordinated listing discussed: [] Yes [] No [x] NA Brochure ([id number]) provided: [] Yes [x] No Listing ID obtained? [x] Yes [] No Colon screening UTD with documentation received? [] Yes [] No [x] NA Mammo UTD with documentation received? [] Yes [] No [x] NA Pap UTD with documentation received? [] Yes [] No [x] NA Dual Organ: [] Yes [x] No [] Unknown Throughout Catia Carias's evaluation for liver transplant, the multidisciplinary team discussedand reviewed the consent for evaluation form [id number]. All questions were answered. Catia Carias has signed the consent form and wishes to proceed with liver transplant evaluation. Encouraged patient to use online patient services. Contact phone numbers provided. Laney Frost M.A.N., Myrtle, C.C.T.C. - 10/01/2021 8:00 AM CDT Patient attended pre liver education class today. Living donor information discussed. Contact information provided. BIANKA signed. Blood and tissue research consent: not signed. Copy sent with patient. Dental clearance form explained and sent with patient. documented in this encounter Miscellaneous Notes Addendum Note - Laney Frost M.A.N., Myrtle, C.C.T.CSuma - 10/01/2021 8:00 AM CDT Addended by: LANEY FROST on: 10/27/2021 04:25 PM Modules accepted: Orders, SmartSet Addendum Note - Matthew Grider M.B.BSumaSSuma, M.D. - 10/01/2021 8:00 AM CDT Addended by: MATTHEW GRIDER on: 10/27/2021 05:38 PM Modules accepted: Orders documented in this encounter Plan of Treatment Upcoming Encounters Date Type Specialty Care Team Description 01/07/2022 Office Visit [facility] Ranjit Red P.A.-C. [address] [place] [phone] (Wo rk) 01/12/2022 Appointment Laboratory Medicine Matthew Grider M.B.B.S., Lilian [address] [place] [phone] (Wo rk) 01/12/2022 Appointment Laboratory Medicine Adeline Frazier M.D., Ph.D. [address] [place] [phone] (Wo rk) 01/13/2022 Telemedicine Transplant Joel Tan L.I.C.S.W., M.S. W. [address] [place] [address] [phone] (Wo rk) 01/13/2022 Telemedicine Transplant Matthew Grider M.B.B.S., M.D. [address] [place] [phone] (Wo rk) 01/13/2022 Telemedicine Transplant Adeline Frazier M.D., Ph.D. [address] [place] [phone] (Wo rk) 01/28/2022 Office Visit Gastroenterology and Matthew Grider, Hepatology Tyrell, Lilian [address] [place] [phone] (Wo rk) Scheduled Orders Name Type Priority Associated Diagnoses Order S chedule Comprehensive Metabolic Panel Lab Routine Cirrhosis A lcoholic Expected: (HCC) 01/05/2022 Abnormal Liver (Approximate) , Function Test Expires: 01/27/2023 Ascites Pretransplant Recipient Evaluation Exam Bilirubin, Direct Lab Routine Cirrhosis Alcoholic Exp ected: (HCC) 01/05/2022 Abnormal Liver (Approximate) , Function Test Expires: 01/27/2023 Ascites Pretransplant Recipient Evaluation Exam Prothrombin Time (PT) Lab Routine Cirrhosis Alcoholic Expected: (HCC) 01/05/2022 Abnormal Liver (Approximate) , Function Test Expires: 01/27/2023 Ascites Pretransplant Recipient Evaluation Exam CBC with Differential, Blood Lab Routine Cirrhosis Al coholic Expected: (HCC) 01/05/2022 Abnormal Liver (Approximate) , Function Test Expires: 01/27/2023 Ascites Pretransplant Recipient Evaluation Exam AFP (Alpha-Fetoprotein), Tumor Lab Routine Cirrhosis Alcoholic Expected: Marker (HCC) 01/05/2022 Abnormal Liver (Approximate) , Function Test Expires: 01/27/2023 Ascites Pretransplant Recipient Evaluation Exam CRP (C-Reactive Protein) Lab Routine Cirrhosis Alcoho lic Expected: (HCC) 01/05/2022 Abnormal Liver (Approximate) , Function Test Expires: 01/27/2023 Ascites Pretransplant Recipient Evaluation Exam Uric Acid Lab Routine Cirrhosis Alcoholic Expected : (HCC) 01/05/2022 Abnormal Liver (Approximate) , Function Test Expires: 01/27/2023 Ascites Pretransplant Recipient Evaluation Exam Ethyl Glucuronide Screen with Lab Routine Cirrhosis A lcoholic Expected: Reflex, Urine (HCC) 01/05/2022 Abnormal Liver (Approximate) , Function Test Expires: 01/27/2023 Ascites Pretransplant Recipient Evaluation Exam Phosphatidylethanol (Peth), Lab Routine Cirrhosis Alc oholic Expected: whole blood- Sent Out Lab (HCC) 01/05/2022, Abnormal Liver Expires: 01/02 Function Test Ascites Pretransplant Recipient Evaluation Exam Preoperative Exam Scheduled Procedures Name Priority Associated Diagnoses Date/Time ESOPHAGOGASTRODUODENOSCOPY Cirrhosis Alc oholic (HCC) Hypertension Portal (HCC) ESOPHAGOGASTRODUODENOSCOPY Cirrhosis Alc oholic (HCC) Ascites Anemia Macrocytic Thrombocytopenia (HC C) Deficiency Coagulation Acquired (HCC) Scheduled Referrals Name Type Priority Associated Order Schedule Diagnoses Transplant Liver Outpatient Referral Routine Expe cted: office visit 01/05/2022 (clinic) (Approximate), Expires: 01/27/2023 Transplant Liver Outpatient Referral Routine Expe cted: office visit 01/05/2022 (clinic) (Approximate), Expires: 01/27/2023 documented as of this encounter Visit Diagnoses Diagnosis Cirrhosis Alcoholic (HCC) Abnormal Liver Function Test Ascites Pretransplant Recipient Evaluation Exam Preoperative Exam documented in this encounter Care Teams Title Insurance Examiner Relationship Specialty Start Date End Date Elsewhere, Pcp PCP - General Family Medicine 03/10/20 11/30/21 [facility] [place] [facility] 08/25/21 Ervin Schroeder MD Referring Provider Family Medicine 03/24/[address] [place] [phone] documented as of this encounter
--- OUTSIDE RECORDS SUMMARY | 2021-12-28 23:28 | XMS_ITS | Encounter Summary ---
:1990 Author Organization [facility] Address [address] [place] [address] Care Team Providers Name Role Phone Elsewhere, Pcp Primary Care Provider Unavailable Reason for Referral Outpatient (Routine) - Closed Specialty Diagnoses / Procedures Referred By Contact Refer red To Contact Diagnoses Cirrhosis Alcoholic (HCC) Abnormal Liver Function Test Ascites Pretransplant Recipient Evaluation Exam Preoperative Exam Warren Hernández M.D., [facility] Region Procedures BMD Bone Density Spine Hips M.P.H. [address] [place] [phone] Referral ID Status Reason Start Date Expiration Date Visits Requ ested Visits Authorized [id number] Closed 08/25/2021 08/25/2022 1 1 Reason for Visit Outpatient (Routine) - Closed Specialty Diagnoses / Procedures Referred By Contact Refer red To Contact Diagnoses Cirrhosis Alcoholic (HCC) Abnormal Liver Function Test Ascites Pretransplant Recipient Evaluation Exam Preoperative Exam Warren Hernández M.D., [facility] Region Procedures BMD Bone Density Spine Hips M.P.H. [address] [place] [address] Referral ID Status Reason Start Date Expiration Date Visits Requ ested Visits Authorized [id number] Closed 08/25/2021 08/25/2022 1 1 Encounter Details Date Type Department Care Team Description 10/09/2021 Hospital Encounter Department of Trav Hernándezosi s Alcoholic (HCC); Radiology, Warren Schaefer M.D., Abnormal Angelica er Function Test; [facility], M.P.H. Ascites; in [place], [facility] Pretransplant Recipient Evaluation Exam; [place], [place] Preoperative Exam [address] [id number] [place] [phone] [place], [place] (Work) [phone] Social History Tobacco Use Types Packs/Day Years [...] do you attend judaism or Never 2021 orthodox services? 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 (HCC), Deficiency Vitamin A nicotine polacrilex Apply 1 lozenge (2 mg 100 each 3 10/0110/31/2021 (NICORETTE) 2 mg total) to cheek as lozenge needed for smoking cessation. Xifaxan 550 mg tablet Take 1 tablet (550 mg 180 tablet 1 10/19/2021 total) by mouth 2 (two) times a day. ciprofloxacin (CIPRO) Take 1 tablet (500 mg 30 tablet 11 11/11/2021 500 mg total) by mouth every tabletIndications: morning before Prophylaxis, medical breakfast Indications: Prophylaxis, medical. furosemide (LASIX) 20 Take 2 tablets (40 [...] bedtime as needed (sleep). lactulose (CHRONULAC) Take 20 g by mouth 3 0 04/0311/11/2021 10 gram/15 mL solution (three) times a day. Titrate to 3 BM daily; doesn't need to use often LORazepam (ATIVAN) 1 mg Take 1 tablet (1 mg 1 tablet 0 11/11/2021 tabletIndications: total) by mouth once Anxiety for [address] scan once magnesium oxide Take 1 tablet (400 mg 60 tablet 1 1 12/02/2021 (MAG-OX) 400 mg (241.3 total) by mouth 2 mg magnesium) tablet (two) times a day before breakfast and dinner. oxyCODONE (ROXICODONE) Take 5 mg by mouth 3 0 11/11/2021 5 mg immediate release (three) times a day tablet as needed for pain. promethazine Take 25 mg by mouth 0 05/27/202104/2022 (PHENERGAN) 25 mg every 6 (six) hours tablet as needed for nausea. rOPINIRole XL (REQUIP Take 2 mg by mouth at 0 11/26/2021 XL) 2 mg 24 hr tablet bedtime. spironolactone Take 2 tablets (100 30 tablet 1 08/03/2021 0 12/10/2021 (ALDACTONE) 50 mg mg total) by mouth tablet daily. UNABLE TO FIND Apply 1 each 0 11/27/19 22 topically daily. Med Name: Medical Cannabis Red [place] (50 mg THC/oz) 0.2% THC/CBD <0.1% UNABLE TO FIND Inhale 1 each as 0 11/01 needed. Med Name: Medical Cannabis Flower, smoking once weekly as needed for sleep; details unclear documented as of this encounter Plan of Treatment Upcoming Encounters Date Type Specialty Care Team Description 01/07/2022 Office Visit [facility] Ranjit Red P.A.-C. [address] [place] [phone] (Wo rk) 01/12/2022 Appointment Laboratory Medicine Matthew Jerome M.B.B.SSuma, M.D. [address] [place] [phone] (Wo rk) 01/12/2022 Appointment Laboratory Medicine Adeline Frazier M.D., Ph.D. [address] [place] [address] [phone] (Gwendolyn rahman) 01/13/2022 Telemedicine Transplant Joel Tan L.I.C.SSumaW., M.S. W. [address] [place] [address] [phone] (Wo rk) 01/13/2022 Telemedicine Transplant Matthew Jerome M.B.B.S., M.D. [address] [place] [phone] (Gwendolyn rahman) 01/13/2022 Telemedicine Transplant Adeline Frazier M.D., Ph.D. [address] [place] [address] [phone] (Gwendolyn rahman) 01/28/2022 Office Visit Gastroenterology and Matthew Jerome, Hepatology VikBSumaSSuma, M.D. [address] [place] [phone] (Gwendolyn rahman) Scheduled Procedures Name Priority Associated Diagnoses Date/Time ESOPHAGOGASTRODUODENOSCOPY Cirrhosis Alc oholic (HCC) Hypertension Portal (HCC) ESOPHAGOGASTRODUODENOSCOPY Cirrhosis Alc oholic (HCC) Ascites Anemia Macrocytic Thrombocytopenia (HC C) Deficiency Coagulation Acquired (HCC) documented as of this encounter Procedures Procedure Name Priority Date/Time Associated Comments Diagnosis BMD BONE DENSITY RAD - Routine 10/09/2021 4:37 Cirrhosis Results for this SPINE HIPS (most inpatients PM CDT Alcoholic (HCC) procedure are in and all Abnormal Liver the results outpatients) Function Test section. Ascites Pretransplant Recipient Evaluation Exam Preoperative Exam documented in this encounter Results BMD Bone Density Spine Hips (10/09/2021 4:37 [...] Mineral Density (BMD) analysis perf ormed on [employer] with serial number [id number]. ? FINDINGS: Left Hip: Femur Neck: BMD [...] Mineral Density (BMD) analysis perf ormed on [employer] with serial number [id number]. FINDINGS: Left Hip: Femur Neck: BMD = [...] Warren Hernández M.D., M.P.H. IMG DXA PROCEDURES documented in this encounter Visit Diagnoses Diagnosis Cirrhosis Alcoholic (HCC) Abnormal Liver Function Test Ascites Pretransplant Recipient Evaluation Exam Preoperative Exam documented in this encounter Additional Health Concerns Assessment Noted Time PHQ-9 Depression Total Score: 10 10/06/2021 5:00 PM CD T documented as of this encounter Care Teams Display Director Relationship Specialty Start Date End Date Elsewhere, Pcp PCP - General Family Medicine 03/10/20 11/30/21 [facility] [place] [facility] 08/25/21 Ervin Schroeder MD Referring Provider Family Medicine 03/24/[address] [place] [phone] documented as of this encounter
--- OUTSIDE RECORDS SUMMARY | 2021-12-28 23:28 | XMS_ITS | Encounter Summary ---
:1990 Author Organization [facility] Address [address] [place] [address] Care Team Providers Name Role Phone Elsewhere, Pcp Primary Care Provider Unavailable Encounter Details Date Type Department Care Team Description 10/02/2021 Orders Only Jairo Gamino am [facility] [address] [facility] Exam (Primary Dx) and Clinical Regeneration [place], [place] in [facility] [phone] [address] [place] [phone] Social History Tobacco Use Types Packs/Day [...] do you attend temple or Never 2021 bahai services? Do you belong to any clubs [...] place to sleep or slept in a chcf (including now)? Education Answer Date Recorded What is the highest level of school Associate degree: ruth barker, 07/16/2021 you have completed or the highest technical, or vocational p rolf degree you have received? 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 [address] [place] [phone] (Gwendolyn rk) 01/12/2022 Appointment Laboratory Medicine Matthew Jerome M.B.B.S., M.D. [address] [place] [phone] (Wo rk) 01/12/2022 Appointment Laboratory Medicine Adeline Frazier M.D., Ph.D. [address] [place] [phone] (Wo rk) 01/13/2022 Telemedicine Transplant Joel Tan L.I.C.S.W., M.S. W. [address] [place] [phone] (Wo rk) 01/13/2022 Telemedicine Transplant Matthew Jerome M.B.B.S., M.D. [address] [place] [phone] (Wo rk) 01/13/2022 Telemedicine Transplant Adeline Frazier M.D., Ph.D. [address] [place] [phone] (Wo rk) 01/28/2022 Office Visit Gastroenterology and Matthew Jerome, Hepatology Tyrell, M.Slick. [address] [place] [phone] (Wo rk) Scheduled Procedures Name Priority Associated Diagnoses Date/Time ESOPHAGOGASTRODUODENOSCOPY Cirrhosis Alc oholic (HCC) Hypertension Portal (HCC) ESOPHAGOGASTRODUODENOSCOPY Cirrhosis Alc oholic (HCC) Ascites Anemia Macrocytic Thrombocytopenia (HC C) Deficiency Coagulation Acquired (HCC) documented as of this encounter Visit Diagnoses Diagnosis Clinical Research Exam - Primary documented in this encounter Care Teams Rolled Gold Plater Relationship Specialty Start Date End Date Elsewhere, Pcp PCP - General Family Medicine 03/10/20 11/30/21 [facility] [place] lab 08/25/21 Ervin Schroeder MD Referring Provider Family Medicine 03/24/[address] [place] [phone] documented as of this encounter
--- OUTSIDE RECORDS SUMMARY | 2021-12-28 23:28 | XMS_ITS | Encounter Summary ---
:1990 Author Organization [facility] Address [address] [place] [phone] Care Team Providers Name Role Phone Elsewhere, Pcp Primary Care Provider Unavailable Reason for Visit Transplant (Routine) - Closed Specialty Diagnoses / Procedures Referred By Contact Refer red To Contact Transplant Surgery / Diagnoses Cirrhosis Alcoholic (HCC) Abnormal Liver Function Test Ascites Pretransplant Recipient Evaluation Exam Preoperative Exam Warren Hernández, [facility] Transplant M.D., M.P.H. [address] [place] [phone] Referral ID Status Reason Start Date Expiration Date Visits Requ ested Visits Authorized [id number] Closed 08/25/2021 08/25/2022 1 1 Encounter Details Date Type Department Care Team Description 10/02/2021 Comprehensive Visit Ramirez Adler, Cirrhosis Alcoholic (HCC); [facility] [place], Abnormal Liver Function Test; Transplantation and M.D. Ascites; Clinical Regeneration [address] [place] [address] Pretransplant Recipient Evaluation Exam; in [place], [place] Preoperative Exam [place] [phone] [place] [address] [place], [place] (Work) [phone] Social History Tobacco Use Types Packs/Day Years [...] do you attend yarsanism or Never 2021 synagogue services? 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 - 10/02/2021 3:00 PM CDT REASON FOR CONSULT Liver Transplant Pulmonary Evaluation Referred by: Dr Dinh HISTORY OF PRESENT ILLNESS Ms. Catia Carias is a 31 y.o. female who presents for cardiopulmonary assessment prior to livertransplant consideration for alcoholic cirrhosis. Patient has a normal echocardiogram except for having shunting noted. The etiology is unclear. Fortunately her oxygenation is quite satisfactory with O2 saturation of 98%. She is a smoker with pulmonary function testing pending. An arterial blood gas is pending. She does have spider angiomas over the anterior chest and significant jaundice. No significant ascites. There is marked swelling in the lower legs however. The chest x-ray was shown to the patient. Echo results discussed. REVIEW OF SYSTEMS He continues to smoke but will stop. No respiratory meds PHYSICAL EXAM Very nice patient. ENT significant for marked jaundice. Cardiac exam indicates a regular rhythm with a 1-2/6 systolic murmur. Lungs are clear nothing per history crackles rhonchi or wheeze. Abdomen not obese and not distended. Chest exam also notes spider angiomas over the right side of the chest. No clubbing or cyanosis. DIAGNOSTIC REVIEW I have reviewed the patient's current laboratory, imaging, and other diagnostic studies. Clinically significant abnormal findings are as follows: Echo suggesting shunt ASSESSMENT / PLAN #1 Cirrhosis Alcoholic (HCC) Cardiac evaluation to date is unremarkable in terms of the resting echo as well as ECG. Normal CXR. She is a good candidate for PVCLD 3 protocol. Pulmonary function testing and arterial blood gas are pending. 6 minute walk results are pending 35 minutes total time. Migue Wahl MD. documented in this encounter Plan of Treatment Upcoming Encounters Date Type Specialty Care Team Description 01/07/2022 Office Visit [facility] Ranjit Red P.A.-C. [address] [place] [address] (Gwendolyn rahman) 01/12/2022 Appointment Laboratory Medicine Matthew Jerome M.B.B.S., M.D. [address] [place] [address] (Gwendolyn rahman) 01/12/2022 Appointment Laboratory Medicine Adeline Frazier M.D., Ph.D. [address] [place] [address] [phone] (Wo rk) 01/13/2022 Telemedicine Transplant Joel Tan L.I.C.S.W., M.S. W. [address] [place] [phone] (Wo rk) 01/13/2022 Telemedicine Transplant Matthew Jerome M.B.B.SSuma, M.D. [address] [place] [phone] (Wo rk) 01/13/2022 Telemedicine Transplant Adeline Frazier M.D., Ph.D. [address] [place] [address] [phone] (Gwendolyn rk) 01/28/2022 Office Visit Gastroenterology and Matthew Jerome, Hepatology JoshuaB.B.SSuma, M.D. [address] [place] [phone] (Gwendolyn rk) Scheduled Procedures Name Priority Associated Diagnoses Date/Time ESOPHAGOGASTRODUODENOSCOPY Cirrhosis Alc oholic (HCC) Hypertension Portal (HCC) ESOPHAGOGASTRODUODENOSCOPY Cirrhosis Alc oholic (HCC) Ascites Anemia Macrocytic Thrombocytopenia (HC C) Deficiency Coagulation Acquired (HCC) documented as of this encounter Visit Diagnoses Diagnosis Cirrhosis Alcoholic (HCC) Abnormal Liver Function Test Ascites Pretransplant Recipient Evaluation Exam Preoperative Exam documented in this encounter Care Teams Hotel Engineer Relationship Specialty Start Date End Date Elsewhere, Pcp PCP - General Family Medicine 03/10/20 11/30/21 [facility] [place] [facility] 08/25/21 Ervin Schroeder MD Referring Provider Family Medicine 03/24/[address] [place] [phone] documented as of this encounter
--- OUTSIDE RECORDS SUMMARY | 2021-12-28 23:28 | XMS_ITS | Encounter Summary ---
:1990 Author Organization [facility] Address [address] [place] [address] Care Team Providers Name Role Phone Elsewhere, Pcp Primary Care Provider Unavailable Reason for Referral Behavioral Health (Routine) - Canceled Specialty Diagnoses / Procedures Referred By Contact Refer red To Contact Diagnoses Pain Leg Bilateral Radhames Neumann, [facility] Procedures Complex persistent pain program Ph.D., L.P. [address] [place] [phone] Referral ID Status Reason Start Date Expiration Date Visits V isits Requested Authorized [id number] Canceled 10/06/2021 10/06/2022 1 1 Reason for Visit Transplant (Routine) - Authorized Specialty Diagnoses / Procedures Referred By Contact Refer red To Contact Transplant Surgery / Diagnoses Cirrhosis Alcoholic (HCC) Abnormal Liver Function Test Ascites Pretransplant Recipient Evaluation Exam Preoperative Exam Warren Hernández, [facility] Transplant M.Jeri, M.P.H. [address] [place] [phone] Referral ID Status Reason Start Date Expiration Date Visits V isisocrates Requested Authorized [id number] Authorized 08/25/2021 08/25/2022 1 1 Encounter Details Date Type Department Care Team Description 10/06/2021 Comprehensive Visit Warren Middleton M.D., M.P.H. [address] [place] [address] Pain Leg Bilateral (Primary Dx); [facility] Radhames Neumann, Ph.D., L.P. [address] [place] [phone] Cirrhosis Alcoholic (HCC); Transplantation and Abnormal Liver Function Test; Clinical Regeneration Ascite s; in [place], Pretransplant Recipient Evaluation Exam; [place] Preoperative Exam [address] [place] [phone] Social History Tobacco Use Types [...] or relatives? How often do you attend catholic or Never 2021 voodoo services? Do you belong to any clubs or No 07/17/2021 organizations such as catholic groups, unions, fraternal or athletic groups, or [...] place to sleep or slept in a [place] health care facility (including now)? Education Answer Date Recorded What is the highest level of school Associate degree: ruth barker, 07/16/2021 you have completed or the highest technical, or vocational p rolf degree you have received? 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 - 10/06/2021 1:00 PM CDT SUBJECTIVE CHIEF COMPLAINT / REASON FOR VISIT Catia Carias was referred by Warren Hernández MD, MPH [facility] of pain, biopsychosocial pain recommendations, and preadmission evaluation with the [facility] to assess candidacy for participation in PRC programming. Patient is being evaluated for liver transplant in the context of end-stage liver disease secondary toprior alcohol use, current PACT: 05/06; SIPAT score of 47. Patient wore facial mask; I wore facial mask and protective eyewear. We practiced social distancing in accordance with institutional and national guidelines during the COVID-19 pandemic. The limits of confidentiality were presented. Patient expressed understanding. HISTORY OF PRESENT ILLNESS Ms. Catia Carias is a 31 y.o. female with chronic bilateral leg pain and bilateral hand pain. Patient notes onset of pain was March 2021 following a hospitalization. Precipitating cause of painhas not been established, however she is noted it may have been related to either neuropathy secondary to cirrhosis or to medication treatment she received during the hospitalization. She also has a history of migraines, the last episode of which was about one year ago. Medical chart also indicates stage 4 cirrhosis of the liver secondary to alcohol use, portal hypertension, splenomegaly, ascites, chronic pancreatitis, GERD, anxiety (panic episodes), depression, disordered eating and body dysmorphia, ADHD, alcohol use disorder, marijuana use, nicotine use disorder. PEG-3: pain severity and interference scale: Average pain rating in the past week? (0=no pain; 10=pain as bad as you can imagine): 8-8.5 How much pain has interfered with enjoyment of life in the past week? (0=does not interfere; 10=unable to carry on any activities): 10 How much has pain interfered with general activity in the past week (0=does not interfere; 10=completely interfered): 9 Pain has increased gradually, and has worsened in the last month. Pain is described as constant, stabbing, and shooting. She attributes the following symptoms to pain: numbness, weakness, and insomnia (longstanding, onset prior to pain but has worsened with pain onset). Symptoms are aggravated by overexertion, under exertion, and possibly stress. 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 ADLs are independent, but a lot harder to do due to pain. She hasa home health nurse who assists with medication management once a week due to difficulties she previously had keeping track of her medication list. Historical treatments/diagnostics related to patient???s chronic pain condition include: Physical therapy Aquatherapy Current treatment for pain and symptoms include: -Physical therapy exercises -Oxycodone: She was first prescribed oxycodone in January 2021 for pancreatitis; currently used for leg pain. Current prescription is for 45 tablets per month. She takes a maximum of 2 tablets a day. -Gabapentin: Daily use, though she is not certain it is beneficial -Medical cannabis: First prescribed in May 2021 for pain, appetite, and nausea; provides short term relief. Used 4 to 5 days per week. Current Outpatient Medications: ??? ciprofloxacin (CIPRO) 500 mg tablet, Take 1 tablet (500 mg total) by mouth every morning before breakfast Indications: Prophylaxis, medical., Disp: 30 tablet, Rfl: 11 ??? ergocalciferol (DRISDOL) 50,000 Unit capsule, Take 50,000 Units by mouth once a week., Disp: , Rfl: ??? folic acid 1 mg tablet, Take 1 mg by mouth daily., Disp: , Rfl: ??? furosemide (LASIX) 20 mg tablet, Take 2 tablets (40 mg total) by mouth daily., Disp: 30 tablet, Rfl: 1 ??? gabapentin (NEURONTIN) 300 mg capsule, Take by mouth 3 (three) times a day. Takes 600 mg in the morning, 600 mg in the afternoon, and 900 mg at bedtime., Disp: , Rfl: ??? hydrOXYzine (ATARAX) 25 mg tablet, Take 25-50 mg by mouth at bedtime as needed (sleep)., Disp: ,Rfl: ??? lactulose (CHRONULAC) 10 gram/15 mL solution, Take 20 g by mouth 3 (three) times a day. Titrate to 3 BM daily; doesn't need to use often, Disp: , Rfl: ??? levonorgestreL (MIRENA) 20 mcg/24 hours (7 yrs) 52 mg IUD, 1 each by intrauterine route continuously., Disp: , Rfl: ??? LORazepam (ATIVAN) 1 mg tablet, Take 1 tablet (1 mg total) by mouth once for 1 dose. Take beforeCT scan once, Disp: 1 tablet, Rfl: 0 ??? magnesium oxide (MAG-OX) 400 mg (241.3 mg magnesium) tablet, Take 1 tablet (400 mg total) by mouth 2 (two) times a day before breakfast and dinner., Disp: 60 tablet, Rfl: 1 ??? nicotine polacrilex (NICORETTE) 2 mg lozenge, Apply 1 lozenge (2 mg total) to cheek as needed for smoking cessation., Disp: 100 each, Rfl: 3 ??? ondansetron ODT (ZOFRAN-ODT) 8 mg disintegrating tablet, Take 1 tablet by mouth 3 (three) times a day as needed., Disp: , Rfl: ??? oxyCODONE (ROXICODONE) 5 mg immediate release tablet, Take 5 mg by mouth 3 (three) times a day as needed for pain., Disp: , Rfl: ??? pantoprazole (PROTONIX) 40 mg EC tablet, Take 1 tablet (40 mg total) by mouth every morning before breakfast., Disp: 30 tablet, Rfl: 1 ??? promethazine (PHENERGAN) 25 mg tablet, Take 25 mg by mouth every 6 (six) hours as needed for nausea., Disp: , Rfl: ??? rOPINIRole XL (REQUIP XL) 2 mg 24 hr tablet, Take 2 mg by mouth at bedtime., Disp: , Rfl: ??? spironolactone (ALDACTONE) 50 mg tablet, Take 2 tablets (100 mg total) by mouth daily., Disp: 30tablet, Rfl: 1 ??? thiamine (VITAMIN B1) 100 mg tablet, Take 100 mg by mouth daily., Disp: , Rfl: ??? UNABLE TO FIND, Apply 1 each topically daily. Med Name: Medical Cannabis [place] (50 mg THC/oz) 0.2% THC/CBD <0.1%, Disp: , Rfl: ??? UNABLE TO FIND, Inhale 1 each as needed. Med Name: Medical Cannabis Flower, smoking once weekly as needed for sleep; details unclear, Disp: , Rfl: ??? vitamin A 3,000 mcg (10,000 Unit) capsule, Take 1 capsule (3,000 mcg total) by mouth 3 (three) times a week for 50 doses., Disp: 50 capsule, Rfl: 0 ??? Xifaxan 550 mg tablet, Take 1 tablet (550 mg total) by mouth 2 (two) times a day., Disp: 180 tablet, Rfl: 1 Pain coping strategies include medications, elevation of legs, compression wraps, heat/cold application, aromatherapy, mild exercise (yoga, walking), journaling, crafting, and scrap booking. REVIEW OF SYSTEMS Nicotine: Previously smoked 1 ppd. Current smokes 2 to 2.5 cigarettes a day. She has completed [facility] with [facility]. Target quit date is 10/20/21. She denied cravings. Alcohol: She reports last use over a year ago. Documentation of alcohol use disorder. She acknowledged that cirrhosis is related to alcohol use, though notes that alcohol use was only social in nature Cannabis: Medicinal cannabis (smoking, topical cream) with prescription card for benefit for pain, sleep, and appetite; provides short term relief. She is aware that she needs to avoid smoking to proceed with transplant. Other substances: Experimentation twice with cocaine at age 19 Overuse of prescribed or [id number] medication: none. She notes she never runs out of her monthly allotment of oxycodone. Treatment for Chemical Dependency/Medication Overuse: None completed. She completed assessment with Addiction Psychiatry in 10/2018 and was recommended to complete chemical dependency treatment at that time. Patient???s current weight: 60.7 kg Patient???s current height: 159 cm BMI: 24.01 Nutritional concerns: She is aware of low appetite and that she needs to challenge herself to consume an adequate amount of calories. She notes that she has historically had a relatively low appetite and denies any current concerns regarding her history of disordered eating. SOCIAL HISTORY Marital Status: partnered; significant other of 12 years, Lobito; very supportive partner Children: none Employment/Disability status: Last worked in January 2021. Unemployed. No current source of income. Family History: Supportive network. Mother, step-father, father, 5 siblings, friends. Is working on a caregiver plan. Education: Associate's degree service: none Abuse history: none OBJECTIVE MENTAL STATUS EXAM Appearance/Behavior: Well groomed, in no apparent distress. Good eye contact. No abnormal movements noted. Consciousness/Orientation: Alert. Oriented to person, place, date, and time. Cognition/Memory: Demonstrates good recent and remote memory through conversation and history. Cooperative/Reliability: Cooperative, reliable informant. Mood/Affect: Euthymic mood with full range affect. Speech/Language: Regular rate, rhythm, volume, and tone. Thought form: Very talkative, and associations are clear and connected. Thought content: No delusions described or elicited, no other abnormalities of thought content. Perception: No hallucinations, illusions, or other perceptual disturbances. Attention/Concentration: No apparent abnormalities in attention or concentration. Knowledge: Knowledge base within normal limits. Abstraction: Abstraction abilities within normal limits. Judgment: Intact. Insight/Motivation: Good insight/motivation regarding transplant; fair regarding psychiatric symptoms Suicidality/Assaultiveness: No suicidality, homicidality, or passive wish. Gait and station: within normal limits. PSYCHIATRIC HISTORY Ms. Carias has a history of depression, anxiety (panic episodes), disordered eating (since adolescence; anorexia, bulimia with history of vomiting, last episode in January 2021; body dysmorphia), and substance use disorder (alcohol, nicotine). She described a history of trauma related to medical proce dures (July 2021 hospitalization) but denies posttraumatic symptoms. She has not received any formal treatment for disordered eating or substance use, and reports she feels she is a person who has been mikki to not need that level of intervention in order to change her behaviors. Per her medical chart, she was recommended in 2019 to complete chemical dependency treatment. She has seen psychiatrists in the past but is not currently working with a mental health professional. Per her medical chart, there is a history of antidepressant use, which she discontinued on her own due to perceived lack of benefit. She currently describes her mood as pretty positive. She denies current mood or anxiety concerns. No history of psychiatric hospitalization, or suicidal ideation,attempt, plan, or intent. PHQ-9 Total Score (max 27): 10 is consistent with moderate (10-14) depressive symptoms in the past two weeks. Patient response- Thoughts that you would be better off , or of hurting yourself in some way.: 0 APPLE-7 Total Score (max 21): 11 is consistent with moderate (10-14) anxiety symptoms in the past two weeks. ASSESSMENT / PLAN #1 Chronic bilateral leg pain #2 Chronic bilateral hand pain #3 Stage 4 cirrhosis of the liver secondary to alcohol use #4 Alcohol use disorder #5 Nicotine use disorder, target quit date of 10/20/21 #6 History of depression #7 History of anxiety #8 History of disordered eating (last purging episode in 01/2021) Ms. Catia Carias described chronic pain that is associated with daily functional disruption. Ms. Carias is aware of the transplant team's recommendation that she taper the opioid and medicinal cannabis. She noted she is willing to follow the necessary recommendations in order to qualify for liver transplantation. She noted that transparency during this process is very important to her in order toproceed with transplant. She prefers not to take rely on pain medications and is interested in otherstrategies to help her manage pain. She plans to discuss a pain medication taper/discontinuation plan with her local prescribing physician. She reports she has no concerns about her ability to taper medicinal cannabis, oxycodone, and nicotine with her currently available resources. We discussed not making any significant pain medication changes for the time being until after she meets with Psychiatryand receives additional information from Transplant about her candidacy. She was amenable to this. There is a history of longstanding psychiatric concerns, though Ms. Carias denies any current concerns about alcohol use, disordered eating, mood, or anxiety. There is no history of formal treatment forthese diagnoses besides what appears to have been a brief period of antidepressant use. She has upcoming consultation with Psychiatry and Addictions Psychiatry, which will be very helpful in elucidating current psychiatric symptoms, her insights related to her substance use and psychiatric history, and recommendations prior to transplant. We discussed the importance of effective chronic pain management in the context of the transplant trajectory. Pending recommendations by Psychiatry, I believe she would benefit from tertiary-level painrehabilitation; she expressed interested in this as a possible future intervention. More immediately, I recommend that she participate in the virtual Complex Persistent Pain Program (CPPP), a 4-hour group-based psychoeducation course that addresses central sensitivity, neuroplasticity, and evidence-based behavioral strategies to enhance functioning. She is interested in participating in CPPP; an order has been placed. This education, in combinationwith an eventual outpatient medication taper plan, could be a helpful launching point to behavioral management of her pain. She is already engaging in some coping strategies that are known to be beneficial for pain management (e.g. physical activity); she was encouraged to continue to engage in those strategies. I would be happy to meet with her again (including virtually) to further discuss these recommendations. Time spent with patient (in minutes): 120 Signed: Radhames Neumann, Ph.D., L.P. 10/06/2021 12:57 PM CDT documented in this encounter Plan of Treatment Upcoming Encounters Date Type Specialty Care Team Description 01/07/2022 Office Visit [facility] Ranjit Red P.A.-C. [address] [place] [phone] (Gwendolyn rahman) 01/12/2022 Appointment Laboratory Medicine Matthew Jerome M.B.B.S., M.D. [address] [place] [phone] (Gwendolyn rahman) 01/12/2022 Appointment Laboratory Medicine Adeline Frazier M.D., Ph.D. [address] [place] [phone] (Gwendolyn rahman) 01/13/2022 Telemedicine Transplant Joel Tan L.I.C.S.W., M.S. W. [address] [place] [phone] (Wo rk) 01/13/2022 Telemedicine Transplant Matthew Jerome M.B.B.S., M.D. [address] [place] [phone] (Wo rk) 01/13/2022 Telemedicine Transplant Adeline Frazier M.D., Ph.D. [address] [place] [phone] (Wo rk) 01/28/2022 Office Visit Gastroenterology and Matthew Jerome, Hepatology Tyrell, M.Jeri [address] [place] [phone] (Wo rk) Scheduled Procedures Name Priority Associated Diagnoses Date/Time ESOPHAGOGASTRODUODENOSCOPY Cirrhosis Alc oholic (HCC) Hypertension Portal (HCC) ESOPHAGOGASTRODUODENOSCOPY Cirrhosis Alc oholic (HCC) Ascites Anemia Macrocytic Thrombocytopenia (HC C) Deficiency Coagulation Acquired (HCC) documented as of this encounter Visit Diagnoses Diagnosis Pain Leg Bilateral - Primary Cirrhosis Alcoholic (HCC) Abnormal Liver Function Test Ascites Pretransplant Recipient Evaluation Exam Preoperative Exam documented in this encounter Additional Health Concerns Assessment Noted Time PHQ-9 Depression Total Score: 10 10/06/2021 5:00 PM CD T documented as of this encounter Care Teams Shop Lead Relationship Specialty Start Date End Date Elsewhere, Pcp PCP - General Family Medicine 03/10/20 11/30/21 [facility] [place] [facility] 08/25/21 Ervin Schroeder MD Referring Provider Family Medicine 03/24/[address] [place] [phone] documented as of this encounter
--- OUTSIDE RECORDS SUMMARY | 2021-12-28 23:28 | XMS_ITS | Encounter Summary ---
:1990 Author Organization [facility] Address [address] [place] [address] Care Team Providers Name Role Phone Elsewhere, Pcp Primary Care Provider Unavailable Reason for Referral Outpatient (Routine) - Closed Specialty Diagnoses / Procedures Referred By Contact Refer red To Contact Diagnoses Cirrhosis Alcoholic (HCC) Abnormal Liver Function Test Ascites Pretransplant Recipient Evaluation Exam Preoperative Exam Warren Hernández M.D., [facility] Procedures Short renal clearance: Iothalamate (Renal Studies Unit) [facility] [address] [place] [id number] Referral ID Status Reason Start Date Expiration Date Visits Requ ested Visits Authorized [id number] Closed 08/25/2021 08/25/2022 1 1 Reason for Visit Outpatient (Routine) - Closed Specialty Diagnoses / Procedures Referred By Contact Refer red To Contact Diagnoses Cirrhosis Alcoholic (HCC) Abnormal Liver Function Test Ascites Pretransplant Recipient Evaluation Exam Preoperative Exam Warren Hernández M.D., [facility] Procedures Short renal clearance: Iothalamate (Renal Studies Unit) [facility] [address] [place] [address] Referral ID Status Reason Start Date Expiration Date Visits Requ ested Visits Authorized [id number] Closed 08/25/2021 08/25/2022 1 1 Encounter Details Date Type Department Care Team Description 10/03/2021 Hospital Encounter Department of Trav Hernándezosi s Alcoholic (HCC); Laboratory Medicine Warren Schaefer M.D., Abnor mal Liver Function Test; and Pathology, [facility] Ascites; [place] [address] [place] [address] Pretransplant Recipient Evaluation Exam; Building, in [place], [place] Preoperative E xam [address] [phone] [address] [facility] (Work) [place], [place] [phone] (Fax) [phone] Social History Tobacco Use Types Packs/Day Years [...] or relatives? How often do you attend voodoo or Never 2021 sabianism services? Do you belong to any clubs or No 07/17/2021 organizations such as voodoo groups, unions, fraternal or athletic groups, or [...] at Date Recorded Female 04/12/2021 7:39 PM [employer] documented as of this encounter Last Filed Vital Signs Vital Sign Reading Time Taken Comments Blood Pressure - - Pulse - - Temperature - - Respiratory Rate - - Oxygen Saturation - - Inhaled Oxygen Concentration - - Weight 60.7 kg (133 lb 13.1 oz) 10/03/2021 10:28 AM CDT Height 159 cm (5' 2.6) 10/03/2021 10:28 AM CDT Body Mass Index 24.01 10/03/2021 10:28 AM CDT documented in this encounter Medications at Time [...] by mouth 0 100 mg tablet daily. nicotine polacrilex Apply 1 lozenge (2 mg [...] weekly as needed for sleep; details unclear vitamin A 3,000 mcg Take 1 capsule (3,000 50 capsule 0 07/2110/08/2021 (10,000 Unit) capsule mcg total) by mouth 3 (three) times a week for 50 doses. documented as of this encounter Plan of Treatment Upcoming Encounters Date Type Specialty Care Team Description 01/07/2022 Office Visit [facility] Ranjit Red P.A.-C. [address] [place] [phone] (Wo rk) 01/12/2022 Appointment Laboratory Medicine Matthew Jerome M.B.B.S., M.D. [address] [place] [phone] (Wo rk) 01/12/2022 Appointment Laboratory Medicine Adeline Frazier M.D., Ph.D. [address] [place] [phone] (Wo rk) 01/13/2022 Telemedicine Transplant Joel Tan L.I.C.S.W., M.S. W. [address] [place] [address] [phone] (Wo rk) 01/13/2022 Telemedicine Transplant Matthew Jerome M.B.B.S., M.D. [address] [place] [phone] (Wo rk) 01/13/2022 Telemedicine Transplant Adeline Frazier M.D., Ph.D. [address] [place] [phone] (Wo rk) 01/28/2022 Office Visit Gastroenterology and Matthew Jerome, Hepatology Lilian Santillan [address] [place] [phone] (Wo rk) Scheduled Orders Name Type Priority Associated Diagnoses Order S chedule Short renal clearance: Procedures Routine Cirrhosis Alcoholi c Once for 1 Occurrences Iothalamate (Renal (HCC) starting 10/03/2021 Studies Unit) Abnormal Liver until 2021 Function Test Ascites Pretransplant Recipient Evaluation Exam Preoperative Exam Scheduled Procedures Name Priority Associated Diagnoses Date/Time ESOPHAGOGASTRODUODENOSCOPY Cirrhosis Alc oholic (HCC) Hypertension Portal (HCC) ESOPHAGOGASTRODUODENOSCOPY Cirrhosis Alc oholic (HCC) Ascites Anemia Macrocytic Thrombocytopenia (HC C) Deficiency Coagulation Acquired (HCC) documented as of this encounter Procedures Procedure Name Priority Date/Time Associated Comments Diagnosis IOTHALAMATE, Routine 10/03/2021 11:18 AM Results for this GLOMERULAR CDT procedure are i n FILTRATION RATE, P the resul ts section. documented in this encounter Results (ABNORMAL) Iothalamate, Glomerular Filtration Rate (10/03/2021 11:18 AM CDT) P athologist Signature Uncorrctd 55 mL/min 10/06/2021 BILL Iothal Cl 2:59 PM CDT Corrctd Iothal 59 (L) 81 - 136 10/06/2021 BILL Cl mL/min/BSA 2:59 PM CDT Comment: ----ADDITIONAL INFORMATION---- This test was developed and its performa nce characteristics determined by [facility] in a manner consistent with CLIA requirements. This test has not been cleared or approved by the [place] and Drug Administration. Specimen Anatomical Collection Method Collection Time Receive d Time (Source) Location / / Volume Laterality Varies (Blood, 10/03/2021 11:18 2 Venous) AM CDT 12:59 PM CDT Narrative [facility] - [facility] - 10/06/2021 2:59 PM CDT Specimen Information: Specimen ID: [id number] Specimen Type: Varies Specimen Collection Start Date: 11:18 AM Specimen Received Date: 10/03/2021 12:59 PM Specimen ID: [id number] Specimen Type: Varies Specimen Collection Start Date: 12:07 PM Specimen Received Date: 10/03/2021 12:59 PM Specimen ID: [id number] Specimen Type: Varies Specimen Collection Start Date: 12:41 PM Specimen Received Date: 10/03/2021 12:59 PM Specimen ID: [id number] Specimen Type: Varies Specimen Collection Start Date: 12:10 PM Specimen Received Date: 10/03/2021 12:59 PM Specimen ID: [id number] Specimen Type: Varies Specimen Collection Start Date: 12:43 PM Specimen Received Date: 10/03/2021 12:59 PM Warren Hernández M.D., M.P.H[facility] LAB BLOOD NON ADD-ON Performing Organization Address City/State/ZIP Code Phon e Number [facility] - [address] [place] [address] [phone] [place] [address] Laboratories[address] documented in this encounter Visit Diagnoses Diagnosis Cirrhosis Alcoholic (HCC) Abnormal Liver Function Test Ascites Pretransplant Recipient Evaluation Exam Preoperative Exam documented in this encounter Administered Medications Inactive Administered Medications - up to 3 most recent administrations Medication Order MAR Action Action Date Dose Rate Site iothalamate meglumine 30 Given 10/03/2021 10:22 AM 1 mL Right Upper Arm % injection 1 mL (CONRAY CDT (Back) 30) 1 mL, subcutaneous, Once, On Wed10/03/21 at 1000, For 1 dose documented in this encounter Care Teams Bottom Turner Relationship Specialty Start Date End Date Elsewhere, Pcp PCP - General Family Medicine 03/10/20 11/30/21 [facility] [place] [facility] 08/25/21 Ervin Schroeder MD Referring Provider Family Medicine 03/24/[address] [place] [phone] (work) documented as of this encounter
--- OUTSIDE RECORDS SUMMARY | 2021-12-28 23:28 | XMS_ITS | Encounter Summary ---
:1990 Author Organization [facility] Address [address] [place] [phone] Care Team Providers Name Role Phone Elsewhere, Pcp Primary Care Provider Unavailable Reason for Referral Transplant (Routine) - Authorized Specialty Diagnoses / Procedures Referred By Contact Refer red To Contact Transplant Surgery / Adeline Frazier [facility] Dixie Gannon M.D., Ph.D. [address] [place] [phone] Referral ID Status Reason Start Date Expiration Date Visits V isits Requested Authorized [id number] Authorized 10/10/2021 10/10/2022 1 1 Reason for Visit Transplant (Routine) - Closed Specialty Diagnoses / Procedures Referred By Contact Refer red To Contact Transplant Surgery / Diagnoses Cirrhosis Alcoholic (HCC) Abnormal Liver Function Test Ascites Pretransplant Recipient Evaluation Exam Preoperative Exam Warren Hernández [facility] Transplant Lilian, M.P.H. [address] [place] [phone] Referral ID Status Reason Start Date Expiration Date Visits Requ ested Visits Authorized [id number] Closed 08/25/2021 08/25/2022 1 1 Encounter Details Date Type Department Care Team Description 10/10/2021 Telemedicine Warren Carter M.D., M.P.H. [address] [place] [phone] Alcohol Moderate Or Severe Use Disorder (Dependence) Uncomplicated (HCC) (Primary Dx); [facility] Cannabis Use Unspecified Uncomplicated; Transplantation and Long Ter m Use Of Opiate Analgesic; Clinical Reg[facility] in [place] otine Dependence Cigarettes; [place], [place] Mood Disorder (HCC); [address] [place] [address] Anxiety Disorder Unspecified ; [place] [phone] Eating Disorder; [phone] Hepatic Encepha lopathy Without Coma (HCC); Chronic Pain Sy ndrome; Cirrhosis Alcoh olic (HCC); Pretransplant R ecipient Evaluation Exam Social History Tobacco Use Types Packs/Day Years [...] do you attend catholic or Never 2021 mandaen services? 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 - 10/10/2021 8:00 AM CDT Service Date: 10/10/21 DEMOGRAPHICS Patient: Catia Carias Date of : 1990 Age: 31 y.o. Gender: female Address: [address] [place] [phone] Referral source: Liver Transplant Team. Consult conducted via real-time audio/video technology by Dr. Marva Frazier and Zenobia Hollingsworth MA, [facility] in [facility] to the patient in patient's home. CIRCUMSTANCES OF SERVICE INITIATION / REASON FOR REFERRAL Pre-Liver transplant addiction psychiatry evaluation. HISTORY OF PRESENT ILLNESS Ms. Catia Bourgeois is??a very pleasant 31 y.o. partnered female under consideration for liver transplantation. The patient has a history of anxiety, depression, eating disorder and chronic pain. She was previously seen by Radhames Neumann, Ph.D., L.P. in [facility] (Pain [facility] abilitation) on 10/06/2021 for evaluation of chronic pain, and by the inpatient consultation liaison psychiatry team 03/18- for evaluation of altered mental status and mood disorder concerns. She is also scheduled with Transplant Psychiatry (Mood) on October 22, 2021. Today she is??seen??for evaluation and recommendations related to??her??history of maladaptive substance use. ??I am assisted by??Zenobia Hollingsworth MA, LADC. ?? I reviewed available medical records. The following portions of the patient's history were reviewed and updated as appropriate: allergies, current medication, family history, medical history, surgical history, social history, problem list. I personally evaluated the patient and discussed??his??case with?Zenobia Hollingsworth MA, LADC.?Detailed history of??his??substance??use presented by??Ms. Catia Bourgeois?in her??discussion with??Zenobia Hollingsworth MA, LADC.??is presented below as follows. ?? SUBSTANCE USE HISTORY ALCOHOL: Yes. Past Use. Age of first use: 17. Age of regular use: 19. Pattern of Use: The patient reported only drinking a handful of times between the ages of 17 and 19, having 1-2 drinks per time. In her early 20s she reported that she drank 2-3 days a week, having 3-5 mixed drinks or beers a day. This continued until her mid-20s, when she reported that she would drink 2-3 times per week, having 2-4 glasses of wine or seltzers per day. The patient reported receiving a DUI around age 26 and noted an unspecified period of sobriety afterwards. The patient reported that in her later 20s she would drink a couple times a month or less, having 2-3 drinks per day. She noted that there were periods of time during this age range where she would not drink for a few months.The patient noted that her last use of alcohol was while on a family vacation in July 2020. She reported that she learned about her liver disease in January 2021. Longest Period of Abstinence: Currently since July 2020. Date of Last Use: July 2020. Has the patient used in the past 30 days? No. CAFFEINE: Yes. The patient reported that she drinks about 3 cans of sprite per day for nausea symptoms. CANNABIS: Yes. Past Use. Age of first use: 17. Age of regular use: 19. Pattern of Use: The patient reported smoking marijuana anywhere from several times a week to daily in her 20s for several years in her 20s. She noted that this pattern continued until she was prescribed medicinal cannabis in May 2021. She noted that she was using cannabis to manage pain, insomnia,nausea, and appetite concerns. Longest Period of Abstinence: Currently since May 2021. Date of Last Use: May 2021. Has the patient used in the past 30 days? No. Medical marijuana: Yes. The patient reported that she has been prescribed medicinal cannabis since May 2021. She stated that she is prescribed a THC topical cream for leg pain that she uses twice aday. The patient also noted that she can smoke flower or use a cartridge, noting that she uses a couple puffs every 4-6 hours. Has the patient used in the past 30 days? Yes. Cannabis withdrawal symptoms: The patient notes no cannabis withdrawal symptoms in the past 30 days. Synthetic Cannabis: No. HALLUCINOGENS: LSD: No. Mushrooms: No. Ketamine: No. Phencyclidine: No. INHALANTS: No. NICOTINE: Yes. Age of first use: 18 Age of regular use: 19 Pattern of Use: The patient reported that she typically smoked a half a pack of cigarettes daily from age 19 until the past year. She noted that she began cutting down in 2020 and was down to a quarterpack per day prior to her hospitalization in fall 2020. The past stated that since her hospitalization she has had about 3 cigarettes per day. She [facility] week and has set a quit date of October 20. Has the patient used in the past 30 days? Yes. Nicotine withdrawal symptoms: The patient notes no nicotine withdrawal symptoms in the past 30 days. OPIOIDS Heroin: No. Methadone: No. Suboxone: No. Prescription: Yes. The patient reported that she has been prescribed Oxycodone 5mg twice a day sinceMarch 2021, and stated that she takes it as prescribed. She noted also being prescribed an opiatebriefly after procedures 3 years ago and 7 years ago, and noted that she took them as prescribed. The patient noted that if she is in pain and has already taken her medication, she calls her doctor forrecommendations. Has the patient used in the past 30 days? Yes. Opioid withdrawal symptoms: The patient notes no opioid withdrawal symptoms in the past 30 days. SEDATIVE/HYPNOTIC/ANXIOLYTICS Sleeping pills: Yes. Past Use. The patient reported being prescribed Ambien for insomnia from ages 17 to 22. She noted that she took it as prescribed, and took herself off of it after she caught herself driving while sleeping. Date of Last Use: 22 Has the patient used in the past 30 days? No. Benzodiazepines: Yes. Past Use. The patient reported that she was prescribed Ativan from age 17 until 3 years ago. She noted that this was PRN, and she took it as prescribed. Date of Last Use: The patient noted that she was given a dose of Ativan before a CT scan a week ago,prior to that 3 years ago. Has the patient used in the past 30 days? Yes. Sedative / Hypnotic / Anxiolytics withdrawal: Patient notes no sedative, hypnotic, or anxiolytic withdrawal symptoms in the past 30 days. STIMULANTS Cocaine: The patient noted that she tried cocaine twice in her late teens. Methamphetamine: No. Ecstasy: No. Prescription: Yes. The patient reported that she was prescribed Adderall from age 17 until 2019. Shenoted taking it as prescribed. Has the patient used in the past 30 days? No. OTHER Srdf-oef-Hlswhky: No. Other: No. Compulsive behaviors: No history of other compulsive behaviors noted. Problematic gambling: Patient denied. CONSEQUENCES OF SUBSTANCE USE Physical: The patient's liver disease, she reported that she fell while intoxicated once. Emotional: The patient noted using substances as a coping mechanism. Social: Patient denied. Work/School/Financial: Patient denied. Legal: The patient received a DUI 4 years ago. Records also indicate legal issues related to underage consumption. Substance Use Criteria Scores: (2-3 mild, 4-5 moderate, 6+ severe use disorder) Alcohol Total: 6 / Failed attempts to reduce/stop, Amount of time obtaining/using/recovering, Cravings, Use in hazardous situations, Persistent use despite emotional and physical effects and Tolerance Cannabis Total: / Often taken in larger amounts or over a longer period of time than was intended, Amount of time obtaining/using/recovering, Cravings, Reduction in activities due to use, Use in hazardous situations, Persistent use despite emotional and physical effects and Tolerance Nicotine Total: 6 /11 Often taken in larger amounts or over a longer period of time than was intended, Amount of time obtaining/using/recovering, Cravings, Persistent use despite emotional and physical effects, Tolerance and Withdrawal REVIEW OF SYSTEMS Constitutional: Positive for fatigue, loss of appetite, night sweats and weight gain of more than 10pounds. Cardiovascular: Positive for swelling in the legs or feet and pain in the calf muscles when walking. Gastrointestinal: Positive for nausea. Genitourinary: Positive for frequent urination. Hematologic: Positive for bruises or bleeds easily. Musculoskeletal: Positive for arthralgias, back pain, pain or stiffness in the joints, joint swelling and muscle pain/stiffness. Neurological: Positive for light-headedness, numbness or shooting pain in hands, arms, legs, or feet, excessive daytime sleepiness, loss of balance or tendency to fall easily and weakness in arms or legs. Psychiatric/Behavioral: Positive for excessive daytime sleepiness/tiredness, little interest or pleasure in doing things over past two weeks and feeling nervous, anxious, or on edge in past two weeks. The following systems were negative: Skin, Eyes, ENT, Respiratory MELD-Na score: 32 at 09/30/2021 7:38 AM MELD score: 27 at 09/30/2021 7:38 AM Calculated from: Serum Creatinine: 0.74 mg/dL (Using min of 1 mg/dL) at 09/30/2021 7:38 AM Serum Sodium: 126 mmol/L at 09/30/2021 7:38 AM Total Bilirubin: 12.1 mg/dL at 09/30/2021 7:38 AM INR(ratio): 2.6 at 09/30/2021 7:37 AM Age: 31 years VITAL SIGNS There were no vitals filed for this visit. LABS Lab Results Component Value Date ALCOHOLURINE Negative 09/30/2021 AMPHTQTU Negative 09/30/2021 BARBSCRNUR Negative 09/30/2021 BENZOCONFU Presumptive Positive (A) 09/30/2021 COCUR Negative 09/30/2021 METHADMETUR Negative 09/30/2021 OPIATESCRNUR Negative 09/30/2021 PHYCYCLSCR Negative 09/30/2021 THCCRBXYLCQU Presumptive Positive (A) 09/30/2021 Lab Results Component Value Date ETHYLGLUCSCU Negative 09/30/2021 Lab Results Component Value Date PHOSETHANOL NEGATIVE 09/30/2021 PAST PSYCHIATRIC / MENTAL HEALTH HISTORY Psych Review of Systems Major Depression symptoms: Positive for fatigue. Panic Disorder symptoms: Positive for nausea. Persistent Depressive Disorder symptoms: Positive for fatigue. Current and/or past psychiatric diagnosis: The patient has been diagnosed with ADHD, Generalized anxiety disorder, mild depression, and insomnia in the past. She reports a history of panic attacks. Thepatient also noted a history of anorexia and bulimia since she was a teenager. She noted that she has been doing well since her liver diagnosis. The patient stated that she did not receive any treatment related to eating disorders. Psychiatric Treatment: Inpatient / Residential treatment: No. Outpatient treatment / Individual therapy: No. The patient reported that she had a psychiatrist previously for several years, and noted that this was several years ago. Gambling treatment: No. Other compulsive behavior treatment: No. Substance Abuse Treatment: Inpatient / Residential treatment: No, Outpatient / Outpatient with residing treatment: No, Detox admission(s): No. Other Interventions (i.e.: MADD panel, DUI class, etc.): Yes. The patient stated that she attended aMADD panel after her DUI and was uncertain if she attended an education class as well. PAST MEDICAL HISTORY/CURRENT VISIT INFORMATION Allergies Allergen Reactions ??? Azithromycin GI intolerance Current Outpatient Medications Medication Sig Dispense Refill [...] week for 50 doses. 50 capsule 0 ??? Xifaxan 550 mg tablet Take 1 tablet (550 mg total) by mouth 2 (two) times a day. 180 tablet 1 No current facility-administered medications for this visit. SOCIAL HISTORY provided by Joel Tan [facility] Pager: [phone] note dated 09/29/2021. Today, the information below was reviewed, verified and updated with the patient. Family of Origin: Family of origin: The patient was raised in [place], [place]. Her parents when she was 20 years old. Her mother remarried. The patient calls her step- father, Siva, her bonus father. The patient's mother and step-father live in [place], [place]. The patient's father did not remarry. He lives in [place], [place], which is 10-12 minutes from the patient. The patient has three brothers and two sisters. The patient stated her parents and all of her siblings are aware of her medical condition and that she is being evaluated for liver transplantation. Abuse, Neglect, Maltreatment, Trauma: Current: Patient denies. Past: Patient denies. Marital Status / Children: The patient is a 31 year old female. She has never been . She has been in a relationship withher boyfriend, Lobito Brunson (age 32) for 12 years. The patient stated neither she nor her boyfriend have children. ?? Per review of the patient's outside medical record it states in April 2014 she gave and hadan open adoption. I did not discuss this with the patient today. ?? The patient and her boyfriend have one dog and one cat for pets. ?? Living Environment Current living situation: The patient lives in an apartment with her boyfriend and their pets. Substance use in home environment: No. Education: Associates Degree. The patient has her associates of [employer] degree in photography. Employment: Disabled: The patient was previously worked at [employer] in [place] until January 2021 when she became ill. History: No background. Spirituality / Quaker / Culture: Describe spiritual beliefs: Patient does not identify with any mandaen or spiritual beliefs. Cultural background: White [1] or [8] Legal History: Describe legal history, arrests and outcomes, probation/parole: The patient reports receipt of one prior DUI approximately three years ago. Per the patient's outside medical record the patient had a couple of legal issues in the past related to underage consumption. Support Systems: Describe your support for long-term recovery: Family members and Social/peer group. Alcoholics Anonymous / Narcotics Anonymous / Recovery Meeting Involvement: No. Sponsor: No. FAMILY HISTORY Substance use disorders: Patient denied any family history of substance use issues. Mental health disorders: The patient stated that her brother, Curt, has had several suicide attempts as an adolescent and young adult, and engaged in residential treatment for a year. MENTAL STATUS: Appearance/Behavior: Well groomed, in no apparent distress. Good eye contact. No abnormal movements noted. Consciousness/Orientation: Alert. Oriented to person, place, date, and time. Cognition/Memory: Moderate cognitive slowing. Demonstrates good recent and remote memory through conversation and history. Cooperative/Reliability: Cooperative, reliable informant. Mood/Affect: Subdued mood with restricted range affect. Speech/Language: Over-elaborate. Thought form: Circumstantial. Thought content: No delusions described or elicited, no other abnormalities of thought content. Perception: No hallucinations, illusions, or other perceptual disturbances. Attention/Concentration: Dis tractable Knowledge base within normal limits. Abstraction: Abstraction abilities within normal limits. Judgment: Intact. Insight/Motivation: Good insight/motivation. Suicidality/Assaultiveness: No suicidality, homicidality, or passive wish. Gait and station: not examined (virtual visit). ASSESSMENT / PLAN DIAGNOSES: #1 Alcohol Severe Use Disorder (Dependence), last reported use in July 2020 #2 Cannabis Use Disorder, Severe, by history; currently medicinal cannabis use #3 Custodial Use Of Opiate Analgesic #4 Nicotine Dependence Cigarettes #5 Mood Disorder Unspecified #6 Anxiety Disorder Unspecified #7 Eating disorder (purging and restricting), by history #8 Chronic Pain Syndrome #9 Hepatic Encephalopathy moderate #10 Cirrhosis Alcoholic; MELD-Na score: 32 at 09/30/2021 #11 Pretransplant (Liver) Recipient Evaluation Exam RECOMMENDATIONS: I have recommended the following plan: COMPLETE THE FULL TRANSPLANT CENTER PROTOCOL (OUTPATIENT) [...] management per Radhames Neumann, Ph.D., L.P. in [facility] (Pain Rehabilitation), 10/06/2021: - virtual [...] in 3 months with Transplant Addiction Counselor (GARY).The LADC will determine and order follow up with Transplant Addiction Psychiatrist based on the patient's progress. Our team counselor, Zenobia Hollingsworth MA, will provide the patient with the following (by mail or patient portal): - A copy of the transplant center's protocol detailing the recommendations discussed above. - A list of treatment centers / therapists in the patient's local community and at [facility]. - A handout about accessing online recovery meetings such as AA, NA, [email or web address], etc. - A set of forms to complete including: Recovery meeting attendance sheet, sponsor verification form, and releases of information as needed. The patient is willing to follow the necessary recommendations in order to qualify for liver transplantation. PACT Score: 1 Candidate's assessment for Exceptions Pathway The following are favorable qualitative factors for consideration in the Transplant Team's final recommendation: 1. Strong network of sober caregiver support. 2. Length of abstinence > one year (last use in July 2020) 3. Prior events of liver decompensation - inpatient hospitalization at [facility] 03/2021; MELD-Na score: 32 at 09/30/2021 4. Insight into substance use as a/the cause of organ disease. 5. No drinking after learning of alcohol-related organ disease. 6. Prior sustained periods of abstinence from alcohol and other drugs - current (since July 2020). 7. History of adherence to medical recommendations. 8. No prior alcohol or other substance use disorder treatment attempts. 9. Appropriate motivation to engage in treatment and attend AA/NA. 10. Verbalized commitment to intensive outpatient treatment and aftercare program or individualized counseling, along with AA/NA, post-transplant. ORDERS PLACED: - Follow up with Transplant Addiction Counselor (LADKatrin) in 3 months. - Labs: Urine Drug Screen with Confirmation, Ethyl Glucuronide with Confirmation and Phosphatidylethanol at the earliest available time and in 3 months. Time: spent a total of 90 minutes with the patient's care, reviewing available medical records, discussing case with Zenobia Hollingsworth MA, [facility], documenting results of evaluation and treatment recommendations as well as counseling and coordination of care. Collateral information: Collateral information not needed at this time. Electronically signed by: Zenobia Hollingsworth M.A., Nathalie 10/10/21 documented in this encounter Plan of Treatment Upcoming Encounters Date Type Specialty Care Team Description 01/07/2022 Office Visit Community Internal Medicine Ranjit Red P.A.-C. [address] [place] [phone] (Gwendolyn rahman) 01/12/2022 Appointment Laboratory Medicine Matthew Jerome M.B.B.S., M.D. [address] [place] [phone] (Gwendolyn rahman) 01/12/2022 Appointment Laboratory Medicine Adeline Frazier M.D., Ph.D. [address] [place] [phone] (Gwendolyn rahman) 01/13/2022 Telemedicine Transplant Joel Tan L.I.C.SZara, M.S. W. [address] [place] [phone] (Gwendolyn rahman) 01/13/2022 Telemedicine Transplant Matthew Jerome M.B.B.S., M.D. [address] [place] [phone] (Gwendolyn rahman) 01/13/2022 Telemedicine Transplant Adeline Frazier M.D., Ph.D. [address] [place] [phone] (Gwendolyn rahman) 01/28/2022 Office Visit Gastroenterology and Matthew Jerome, Hepatology Lilian Santillan [address] [place] [phone] (Wo rk) Scheduled Orders Name Type Priority Associated Diagnoses Order S chedule Ethyl Glucuronide Lab Routine Alcohol Moderate Or Sev ere Expected: 10/10/2021 Confirmation, Random, Use Disorder (Depen dence) (Approximate), Urine Uncomplicated (HCC) Expires: 01/10/2023 Drug Abuse Survey with Lab Routine Cannabis Use Unspe cified Expected: 10/10/2021 Confirmation, Urine Uncomplicated (Approx imate), Expires: 2022 Scheduled Procedures Name Priority Associated Diagnoses Date/Time ESOPHAGOGASTRODUODENOSCOPY Cirrhosis Alc oholic (HCC) Hypertension Portal (HCC) ESOPHAGOGASTRODUODENOSCOPY Cirrhosis Alc oholic (HCC) Ascites Anemia Macrocytic Thrombocytopenia (HC C) Deficiency Coagulation Acquired (HCC) Scheduled Referrals Name Type Priority Associated Order Schedule Diagnoses Transplant Liver Outpatient Referral Routine Expe cted: office visit 01/10/2022 (clinic) (Approximate), Expires: 01/10/2023 documented as of this encounter Results (ABNORMAL) Drug Abuse Survey with Confirmation, Urine (12/15/2021 5:58 PM CDT) [facility] Method Time Signature Alcohol Negative Cutoff: [...] Positive Cutoff: 50 ng/mL 12/16/2021 9:49 AM [facility] (A) CDT Comment: This immunoassay targets delta-9 [...] Laterality Urine (Urine, 12/15/2021 5:58 PM 12/17/19 22 7:09 Clean Catch) CDT AM CDT Adeline Frazier M.D., Ph.D. LAB URINE ORDERABLES Performing Organization Address City/State/ZIP Code Phon e Number [facility] [address] [place], [place] [address] [place], [place] [address]. [place] [address] Laboratory Medicine and Pathology [address] [place] Ethyl Glucuronide Confirmation, Random, Urine (12/15/2021 5:51 PM CDT) [facility] Method Time Signature Ethyl Glucuronide Negative Cutoff: 12/17/2021 [facility] Confirmation, U 250 ng/mL 10:34 AM CDT Ethyl Sulfate Negative Cutoff: 12/17/2021 [facility] 100 ng/mL 10:34 AM CDT Ethyl Gluc/Sulfate Negative. 12/17/2021 [facility] Interpretation 10:34 AM CDT Comment: ----ADDITIONAL INFORMATION---- This report is intended for use in clini ada monitoring and management of patients. ??It is not intended for use i n employment-related testing. This test was developed and its performa nce characteristics determined by [facility] in a manner consistent with CLIA requirements. This test has not been cleared or approved by the [place] d and Drug Administration. Specimen Anatomical Collection Method Collection Time Receive d Time (Source) Location / / Volume Laterality Urine (Urine, 12/15/2021 5:51 PM 12/16/19 22 9:55 Midstream) CDT PM CDT Adeline Frazier M.D., Ph.D. LAB URINE ORDERABLES Performing Organization Address City/State/ZIP Code Phon e Number [facility] [address] [place], [place] [address] [place], [place] [address]. [place] [address] Laboratory Medicine and Pathology [address] [place] Phosphatidylethanol (Peth), whole blood- Sent Out Lab (12/15/2021 5:39 PM CDT) Component Value Ref Range Test Analysis Performed Pathologis t Method Time At Signature Phosphatidylethanol NEGATIVE NEGATIVE 12/26/2021 MTI (PEth) ng/mL 1:01 PM CDT Comment: Analyzed compound: PEth 16:0/18:1. ? 1-schdfscxr-0-cxfnew-qe-vqvolcz-3 -phosphoethanol. ? Analysis performed by Liquid Chromatogra phy with ? Tandem Mass Spectrometry (LC/MS/MS). ? [...] and its performa nce characteristics determined by [facility]. It has not been c leared or approved by the Food and Drug Administration. Specimen Anatomical Collection Method Collection Time Receive d Time (Source) Location / / Volume Laterality Blood (Blood, 12/15/2021 5:39 PM 12/17/19 22 8:26 Venous) CDT AM CDT Adeline Frazier M.D., Ph.D. LAB BLOOD NON ADD-ON Performing Organization Address City/State/ZIP Code Phon e Number [employer] [address] [place], [place] [address] [address] [employer] 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 Use Of Opiate Analgesic Nicotine Dependence Cigarettes Mood Disorder (HCC) Anxiety Disorder Unspecified Eating Disorder Hepatic Encephalopathy Without Coma (HCC ) Chronic Pain Syndrome Cirrhosis Alcoholic (HCC) Pretransplant Recipient Evaluation Exam documented in this encounter Additional Health Concerns Assessment Noted Time PHQ-9 Depression Total Score: 10 10/06/2021 5:00 PM CD T documented as of this encounter Care Teams Owner Manager Relationship Specialty Start Date End Date Elsewhere, Pcp PCP - General Family Medicine 03/10/20 11/30/21 [facility] [place] [facility] 08/25/21 Ervin Schroeder MD Referring Provider Family Medicine 03/24/[address] [place] [phone] documented as of this encounter
--- OUTSIDE RECORDS SUMMARY | 2021-12-28 23:28 | XMS_ITS | Encounter Summary ---
:1990 Author Organization [facility] Address [address] [place] [address] Care Team Providers Name Role Phone Elsewhere, Pcp Primary Care Provider Unavailable Reason for Visit Transplant (Routine) - Closed Specialty Diagnoses / Procedures Referred By Contact Refer red To Contact Transplant Surgery / Diagnoses Cirrhosis Alcoholic (HCC) Abnormal Liver Function Test Ascites Pretransplant Recipient Evaluation Exam [facility]operative [facility] M[facility]P.H[facility] [address] [place] [address] Referral ID Status Reason Start Date Expiration Date Visits Requ ested Visits Authorized [id number] Closed 08/25/2021 08/25/2022 1 1 Encounter Details Date Type Department Care Team Description 10/02/2021 Comprehensive Visit Ramirez Barajas, Cirrhosis Alcoholic (HCC); [facility] Abnormal Liver Function Test; Transplantation and M.Jeri, Ph.D. Ascites; Clinical Regeneration [address] [place] nsplant Recipient Evaluation Exam; in [facility] Preoperative Exam [address] [facility] [phone] Social History Tobacco Use Types Packs/Day Years [...] do you attend islam or Never 2021 catholic services? 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 - 10/02/2021 1:00 PM CDT SUBJECTIVE HISTORY OF PRESENT ILLNESS Ms. Carias is a 31-year-old woman from [place], [place], with alcohol- associated cirrhosis. Her disease was diagnosed in fall when she fell ill and was subsequently hospitalized. It appears that several months prior to that, she started to feel more fatigued and perhaps developed encephalopathy. She quit working. She also noticed that she was getting jaundiced in March of 2021. She was hospitalized in [place] and diagnosed with cirrhosis. This is secondary to alcohol use. The patient'srecords state that her last drink was in July 2020, although when I asked directly, she stated to me that she quit drinking in 2018 or 2019. She has had encephalopathy and ascites. Therefore, she is clearly decompensated. She has had no addiction treatment in the past. However, she has had several pancreatitis attacks presumed secondary to alcohol consumption in the past. Previous surgical history is none. OBJECTIVE PHYSICAL EXAMINATION General: A 31-year-old woman in no acute distress. She is jaundiced. Abdomen: Soft, mildly distended, and nontender. Extremities : She has 3+ pitting edema in the lower extremities. 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 We discussed indications,possible complications, and overall outcomes of liver transplantation. We went over the MELD allocation system for donor livers as well as different type of donors. We also talked about the role for living donor liver transplantation in certain situations. We discussed the need for lifelong immunosuppression and frequent medical care as needed. I was able to review her medical records and imaging studies. From a surgical standpoint, she is an acceptable candidate. However, she has not done any addiction treatment yet. During our conversation, she appeared to have a low insight into her addiction problem. I answered all the questions. Janett Dinh M.D., Ph.D. CT CT Job ID: [id number]/ documented in this encounter Plan of Treatment Upcoming Encounters Date Type Specialty Care Team Description 01/07/2022 Office Visit [facility] Ranjit Red P.A.-C. [address] [place] [address] (Wo rk) 01/12/2022 Appointment Laboratory Medicine Matthew Jerome M.B.B.S., Lilian [address] [place] [phone] (Wo rk) 01/12/2022 Appointment Laboratory Medicine Adeline Frazier M.D., Ph.D. [address] [place] [phone] (Wo rk) 01/13/2022 Telemedicine Transplant Joel Tan L.I.C.S.W., M.S. W. [address] [place] [phone] (Wo rk) 01/13/2022 Telemedicine Transplant Matthew Jerome M.B.B.S., MJules [address] [place] [phone] (Wo rk) 01/13/2022 Telemedicine Transplant Adeline Frazier M.D., Ph.D. [address] [place] [phone] (Wo rk) 01/28/2022 Office Visit Gastroenterology and Matthew Jerome, Hepatology FredySSuma, MJules [address] [place] [phone] (Wo rk) Scheduled Procedures Name Priority Associated Diagnoses Date/Time ESOPHAGOGASTRODUODENOSCOPY Cirrhosis Alc oholic (HCC) Hypertension Portal (HCC) ESOPHAGOGASTRODUODENOSCOPY Cirrhosis Alc oholic (HCC) Ascites Anemia Macrocytic Thrombocytopenia (HC C) Deficiency Coagulation Acquired (HCC) documented as of this encounter Visit Diagnoses Diagnosis Cirrhosis Alcoholic (HCC) Abnormal Liver Function Test Ascites Pretransplant Recipient Evaluation Exam Preoperative Exam documented in this encounter Care Teams Metal Bonding Worker Relationship Specialty Start Date End Date Elsewhere, Pcp PCP - General Family Medicine 03/10/20 11/30/21 [facility] 08/25/21 Ervin Schroeder MD Referring Provider Family Medicine 03/24/[address] [place] [phone] documented as of this encounter
--- OUTSIDE RECORDS SUMMARY | 2021-12-28 23:28 | XMS_ITS | Encounter Summary ---
:1990 Author Organization [facility] Address [address] [place] [address] Care Team Providers Name Role Phone Elsewhere, Pcp Primary Care Provider Unavailable Encounter Details Date Type Department Care Team Description 10/08/2021 Clinical Communication Department of [facility], Gastroenterology in [place], [place] L.P.N. [address] [facility] [address] [place] [address] [place], [place] [phone] Social History Tobacco Use Types Packs/Day [...] do you attend islam or Never 2021 alevism services? 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 - 10/08/2021 10:18 AM CDT Patient called regarding her Vitamin A that Kerry Naranjo prescribed. She is needing a refill. She stated that her last dose was last week on or Wednesday. Her last lab was drawn 09/30/2021 and wasstill low. Kerry last prescribed on 07/21/21. Please refill if appropriate. Thank you! documented in this encounter Plan of Treatment Upcoming Encounters Date Type Specialty Care Team Description 01/07/2022 Office Visit [facility] Ranjit Red P.A.-C. [address] [place] [address] [place] [phone] (Wo rk) 01/12/2022 Appointment Laboratory Medicine Matthew Jerome M.B.B.S., Lilian [address] [place] [phone] (Wo rk) 01/12/2022 Appointment Laboratory Medicine Adeline Frazier M.D., Ph.D. [address] [place] [phone] (Wo rk) 01/13/2022 Telemedicine Transplant Joel Tan L.I.C.S.W., M.S. W. [address] [place] [phone] (Wo rk) 01/13/2022 Telemedicine Transplant Matthew Jerome M.B.B.S., Callie. [address] [place] [phone] (Wo rk) 01/13/2022 Telemedicine Transplant Adeline Frazier M.D., Ph.D. [address] [place] [phone] (Wo rk) 01/28/2022 Office Visit Gastroenterology and Matthew Jerome, Hepatology Tyrell, Lilian [address] [place] [phone] (Wo rk) Scheduled Procedures Name Priority Associated [...] documented as of this encounter Care Teams Church Worker Relationship Specialty Start Date End Date Elsewhere, Pcp PCP - General Family Medicine 03/10/20 11/30/21 [facility] 08/25/21 Ervin Schroeder MD Referring Provider Family Medicine 03/24/211979 [address] [place] [phone] documented as of this encounter
--- OUTSIDE RECORDS SUMMARY | 2021-12-28 23:28 | XMS_ITS | Encounter Summary ---
:1990 Author Organization [facility] Address [address] [place] [address] Care Team Providers Name Role Phone Elsewhere, Pcp Primary Care Provider Unavailable Reason for Referral Outpatient (Routine) - Closed Specialty Diagnoses / Procedures Referred By Contact Refer red To Contact Nicotine Dependence Jessy Crain M.A., C.T.T.S. [address] [place] [address] Referral ID Status Reason Start Date Expiration Date Visits Requ ested Visits Authorized [id number] Closed 10/01/2021 10/01/2022 1 1 Scheduling Instructions Week of October 27 please schedule a video follow up return or if an in person is able to be scheduled with existing appointmen ts, please do that. Patient will get the appt on the portal so no need to call. Thank you. Reason for Visit Reason Comments Nicotine Dependence Outpatient (Routine) - Closed Specialty Diagnoses / Procedures Referred By Contact Refer red To Contact Pulmonary Medicine / Diagnoses Cirrhosis Alcoholic (HCC) Abnormal Liver Function Test Ascites Pretransplant Recipient Evaluation Exam Preoperative Exam Warren Hernández, [facility] Nicotine Dependence Lilian, M.P.H. [address] [place] [address] Referral ID Status Reason Start Date Expiration Date Visits Requ ested Visits Authorized [id number] Closed 08/25/2021 08/25/2022 1 1 Encounter Details Date Type Department Care Team Description 10/01/2021 Clinical Support Department of Elier Hernández M.D., M.P.H. [address] [place] [address] Nicotine Dependence Cigarettes (Primary Dx); Nicotine Jessy Crain M.A., C.T.T.S. [address] [place] [phone] Cirrhosis Alcoholic (HCC); Dependence, Gonda Abnormal L iver Function Test; Building, in Ascites; [place], Pretransplant R ecipient Evaluation Exam; [place] Preoperative Exam [address] [place] [phone] Social History Tobacco Use Types Packs/Day Years [...] do you attend tenriism or Never 2021 roman catholic services? 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 - 10/01/2021 10:00 AM CDT SUBJECTIVE CHIEF COMPLAINT / REASON FOR VISIT Tobacco use disorder HISTORY OF PRESENT ILLNESS Catia Carias is a 31 y.o. female who was seen at [place] [address] and is being evaluated for Tobacco Use Disorder. She is undergoing a liver transplant evaluation and has a history of alcohol related cirrhosis, portal hypertension, splenomegaly, ascites, chronic pancreatitis, GERD, anxiety, depression, mi graines, tobacco use, ADHD, and marijuana use. Patient started smoking at age 19 and smoked 20 cigarettes per day for approximately 12 years. Since her health decline she has been actively reducing hertobacco use and has decreased to 1 pack of cigarettes per week. She is very motivated to stop all smoking. Tobacco Use History: Patient averages 2-3 cigarettes per day, and usually smokes within After 60 minutes of waking. Catia started using tobacco regularly at the age of 19. She has made 0 quit attempts with her longest period of abstinence being 1 to 30 days, while hospitalized. Catia has tried stopping using various methods such as cold turkey and reducing tobacco use. Patient has relapsed due to life stressors. The patient has experienced the following withdrawal symptoms: Desire to smoke. Patient reports specific triggers are: Driving, Feeling stressed Motivation: Catia shares that she is extremely motivated to stop using tobacco at this time and states, I don't care to smoke anymore. She rates importance of quitting at 10 Very Important/10 and her confidence in ability to quit at 9 /10. Her reasons to quit are to be able to live longer, to improve health, to avoid the bad smell of cigarettes and needs transplant. Potential Barriers to Quitting: Lives with someone who smokes and Patient identifies multiple stressors . OBJECTIVE Co-occurring Problems: The patient self-reported she does have a history of depression and anxiety. Alcohol Use Disorders Identification Test: The patient self-reported she has a history of alcohol abuse and stopped drinking. Fagerstrom Score is 0/10. Assessment of Medication Contraindications: Patient states no contraindications to nicotine replacement. ASSESSMENT / PLAN 1. Tobacco use disorder. 2. Tobacco dependence counseling: Ms. aCrias has already reduced tobacco use and has set a quit date for October 20, 2021. Time was spent discussing with the patient the neurobiology of nicotine addiction and the rationale for using medications to help with cessation. Education was provided on the 7 FDA approved medications for cessation and all questions were answered. The following is consistent with assessment and patient preference: Nicotine mini lozenge: 2 mg 1-2 mini lozenges every 1-2 hours as needed to control craving. Adverse effects may include mouth soreness, nausea (which tends to lessen over time, though dose should be reduced if nausea develops). Medication plan is within approved guidelines and patient was screened for contraindications BEHAVIORAL PLAN: Cognitive and behavorial techniques for coping with urges to smoke were reviewed as well as planningfor triggers, changing routines, and getting support. Strategies such as avoid places, people or activities that seem to trigger urges to smoke, distraction , use NRT and journaling and crafting were discussed to help manage urges and cravings. We worked together using the book entitled: My Smoke-Free Future. Follow Up: I encouraged Catia Carias to contact me with any questions or concerns. I provided the patient with educational materials and [facility] contact information. We have scheduled a follow-up appointment for the week of October 27.. Patient is ready to learn, No apparant barriers to learning were identified. Patient understands andagrees with plan. 60 minutes of our visit was spent on tobacco use disorder counseling. Jessy Crain M.A., C.T.T.S. 10/01/2021 11:58 AM CDT documented in this encounter Plan of Treatment Upcoming Encounters Date Type Specialty Care Team Description 01/07/2022 Office Visit [facility] Ranjit Red P.A.-C. [address] [place] [phone] (Wo rk) 01/12/2022 Appointment Laboratory Medicine Matthew Jerome M.B.B.S., MJules [address] [place] [address] [phone] (Wo rk) 01/12/2022 Appointment Laboratory Medicine Adeline Frazier M.D., Ph.D. [address] [place] [phone] (Wo rk) 01/13/2022 Telemedicine Transplant Joel Tan L.I.C.SSumaW., M.S. W. [address] [place] [address] [phone] (Wo rk) 01/13/2022 Telemedicine Transplant Matthew Jerome M.B.B.S., M.D. [address] [place] [phone] (Wo rk) 01/13/2022 Telemedicine Transplant Adeline Frazier M.D., Ph.D. [address] [place] [phone] (Wo rk) 01/28/2022 Office Visit Gastroenterology and Matthew Jerome, Hepatology Tyrell, MJules [address] [place] [phone] (Wo rk) Scheduled Procedures Name Priority Associated Diagnoses Date/Time ESOPHAGOGASTRODUODENOSCOPY Cirrhosis Alc oholic (HCC) Hypertension Portal (HCC) ESOPHAGOGASTRODUODENOSCOPY Cirrhosis Alc oholic (HCC) Ascites Anemia Macrocytic Thrombocytopenia (HC C) Deficiency Coagulation Acquired (HCC) Scheduled Referrals Name Type Priority Associated Order Schedule Diagnoses Nicotine Dependence Outpatient Referral Routine E xpected: office visit 10/27/2021, (clinic) Expires: 01/01/2023 documented as of this encounter Visit Diagnoses Diagnosis Nicotine Dependence Cigarettes - Primary Cirrhosis Alcoholic (HCC) Abnormal Liver Function Test Ascites Pretransplant Recipient Evaluation Exam Preoperative Exam documented in this encounter 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
--- OUTSIDE RECORDS SUMMARY | 2021-12-28 23:28 | XMS_ITS | Encounter Summary ---
:1990 Author Organization [facility] Address [address] [place] [address] Care Team Providers Name Role Phone Elsewhere, Pcp Primary Care Provider Unavailable Encounter Details Date Type Department Care Team Description 10/09/2021 Clinical Communication [facility] Brigid Hudson, Transplantation and MJules Clinical Regeneration in [address] [place] [address] [place] [phone] [place] [phone] Social History Tobacco Use Types Packs/Day Years [...] do you attend shinto or Never 2021 advent services? Do you belong to any clubs or No 07/17/2021 organizations such as shinto groups, unions, [employer]Ch[employer] or athletic groups, or school groups? 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 [address] [place] [phone] (Gwendolyn rahman) 01/12/2022 Appointment Laboratory Medicine Matthew Jerome M.B.B.S., M.D. [address] [place] [phone] (Gwendolyn rahman) 01/12/2022 Appointment Laboratory Medicine Adeline Frazier M.D., Ph.D. [address] [place] [phone] (Gwendolyn rahman) 01/13/2022 Telemedicine Transplant Joel Tan L.I.C.S.W., M.S. W. [address] [place] [phone] (Wo rk) 01/13/2022 Telemedicine Transplant Matthew Jerome M.B.B.S., M.D. [address] [place] [phone] (Wo rk) 01/13/2022 Telemedicine Transplant Adeline Frazier M.D., Ph.D. [address] [place] [phone] (Wo rk) 01/28/2022 Office Visit Gastroenterology and Matthew Jerome, Hepatology VikBGraeme, M.Jeri [address] [place] [phone] ( rk) Scheduled Procedures Name Priority [...] documented as of this encounter Care Teams Airline Hostess Relationship Specialty Start Date End Date Elsewhere, Pcp PCP - General Family Medicine 03/10/20 11/30/21 [facility] [place] lab 08/25/21 Ervin Schroeder MD Referring Provider Family Medicine 03/24/[address] [place] [phone] documented as of this encounter
--- OUTSIDE RECORDS SUMMARY | 2021-12-28 23:28 | XMS_ITS | Encounter Summary ---
:1990 Author Organization [facility] Address [address] [place] [address] Care Team Providers Name Role Phone Elsewhere, Pcp Primary Care Provider Unavailable Reason for Referral Outpatient (Routine) - Pending Review Specialty Diagnoses / Procedures Referred By Contact Refer red To Contact Migue Justice M .D. [facility] [address] [place] [phone] Referral ID Status Reason Start Date Expiration Date Visits V isits Requested Authorized [id number] Pending 10/01/2021 10/01/2022 1 1 Review Scheduling Instructions Calendar: TXP RESEARCH ROCH 10 [TXP ROCH] Floor: Mesa 10a Encounter Details Date Type Department Care Team Description 10/01/2021 Orders Only Ramirez diaz [facility] Bernardo Walls for Transplantation and [address] [place] [address] Clinical Regeneration in [place], [place] [phone] [place] [phone] Social History Tobacco Use Types Packs/Day [...] or relatives? How often do you attend mandaen or Never 2021 judaism services? 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 [address] [place] [address] BAYADI WRIGHT [phone] (Wo rk) 01/12/2022 Appointment Laboratory Medicine Matthew Jerome M.B.B.S., MCee. [address] [place] [phone] (Wo rk) 01/12/2022 Appointment Laboratory Medicine Adeline Frazier M.D., Ph.D. [address] [place] [phone] (Wo rk) 01/13/2022 Telemedicine Transplant Joel Tan L.I.C.S.W., M.S. W. [address] [place] [phone] (Wo rk) 01/13/2022 Telemedicine Transplant Matthew Jerome M.B.B.S., Callie. [address] [place] [phone] (Gwendolyn rk) 01/13/2022 Telemedicine Transplant Adeline Frazier M.D., Ph.D. [address] [place] [phone] (Wo rk) 01/28/2022 Office Visit Gastroenterology and Matthew Jerome, Hepatology Tyrell, Lilian [address] [place] [phone] (Gwendolyn rk) Scheduled Procedures Name Priority Associated Diagnoses Date/Time ESOPHAGOGASTRODUODENOSCOPY Cirrhosis Alc oholic (HCC) Hypertension Portal (HCC) ESOPHAGOGASTRODUODENOSCOPY Cirrhosis Alc oholic (HCC) Ascites Anemia Macrocytic Thrombocytopenia (HC C) Deficiency Coagulation Acquired (HCC) Scheduled Referrals Name Type Priority Associated Order Schedule Diagnoses Research Study Outpatient Referral Routine Expect ed: Coordinator office 2 visit (clinic) (Approximate) , Expires: 01/01/2023 documented as of this encounter Visit Diagnoses Not on filedocumented in this encounter Care Teams Executive Staff Assistant Relationship Specialty Start Date End Date Elsewhere, Pcp PCP - General Family Medicine 03/10/20 11/30/21 [facility] 08/25/21 Ervin Schroeder MD Referring Provider Family Medicine 03/24/[address] [place] [phone] documented as of this encounter
--- OUTSIDE RECORDS SUMMARY | 2021-12-28 23:28 | XMS_ITS | Encounter Summary ---
:1990 Author Organization [facility] Address [address] [place] [address] Care Team Providers Name Role Phone Elsewhere, Pcp Primary Care Provider Unavailable Reason for Referral Outpatient (Routine) - Closed Specialty Diagnoses / Referred By Contact Referred To Procedures Contact Gastroenterology and Diagnoses Cirrhosis Alcoholic (HCC) Hypertension Portal (HCC) Thrombocytopenia (HCC) Abnormal Liver Function Test Deficiency Vitamin A Matthew Jerome [facility] Lilian Santillan [address] [place] [address] Referral ID Status Reason Start Date Expiration Date Visits Requ ested Visits Authorized [id number] Closed 10/08/2021 10/08/2022 1 1 Scheduling Instructions 1 month follow up post transplant eval Reason for Visit Reason Comments Follow-up Outpatient (Routine) - Closed Specialty Diagnoses / Referred By Contact Referred To Procedures Contact Gastroenterology and Matthew Jerome [facility] Hepatology Lilian Santillan [address] [place] [address] Referral ID Status Reason Start Date Expiration Date Visits Requ ested Visits Authorized [id number] Closed 08/05/2021 08/05/2022 1 1 Encounter Details Date Type Department Care Team Description 10/08/2021 Office Visit Department of Queenie, Matthew Cirrhosis Alco holic (HCC) (Primary Dx); Gastroenterology in , Tyrell, Hyperten neptali Portal (HCC); [place], [place] Lilian Thrombocytopenia (HCC); [address] [facility] 10[address] [facility] Abnormal Liver Function Test; [place] [address] [place], [place] Deficiency Vitamin A [phone] Social History Tobacco Use Types Packs/Day [...] do you attend orthodoxy or Never 2021 yarsani services? 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 - 10/08/2021 12:45 PM CDT Please call us for any new or worsening symptoms. We will follow with you after completion of the transplant eval. We will see you back in clinic at an appointment to be scheduled next month. documented in this encounter Progress Notes Matthew Jerome M.B.B.S., M.D. - 10/08/2021 12:15 PM CDT Patient Name: Catia Carias Date of : 1990 Date of encounter: 10/08/2021 SUBJECTIVE CHIEF COMPLAINT/REASON FOR VISIT Decompensated cirrhosis HISTORY OF PRESENT ILLNESS Catia Carias is a 31 y.o. female who presents for a wrap up visit as part of the liver transplant evaluation. 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 She reports improvement in her leg swelling bilaterally since she met with a physical therapist at the lymphedema clinic. She is compliant with the leg wraps, as well as both diuretics. We increase thedose last time and she continues to take Lasix 40 mg daily and spironolactone 100 mg daily. She denies any confusion or decreased concentration, and she takes lactulose to allow for 2-3 bowel movements daily. No bloody or black stool. She continues to have jaundice No alcohol relapse per history. She has been trying her best to eat healthy and she states that she has been maintaining her weight. She has been using medical marijuana a few days a week as well as oxycodone maximum twice a day and this is mainly for bilateral leg pain. She has been compliant with her appointments and she is in the process to complete the liver transplant evaluation in [place] later this week, per protocol. She states that she is transparent with the team and is willing to do anything requested that will help her get on the liver transplant list. We reviewed the recent consultation with surgery team, Cardiology, the criminal justice social worker as well as the pain clinic. The following portions of the patient's history were reviewed and updated as appropriate: allergies,current medications, family history, medical history, social history, surgical history and problem list. REVIEW OF SYSTEMS A comprehensive review of systems was performed, and the positive symptoms are mentioned in the HPI above. OBJECTIVE VITAL SIGNS BP 98/58 (BP Location: Left arm, Patient Position: Sitting) Pulse 90 Ht 159 cm BMI 24.01 kg/m?? PHYSICAL EXAMINATION General: Patient looks cachectic, weak and has jaundice. Head/Neck: Normocephalic, atraumatic. She has scleral icterus. Neck is supple. Chest: Clear. Heart: Normal S1, S2. Abdomen: Soft, nontender, nondistended. Positive bowel sounds. Musculoskeletal: +2 lower extremity edema. Skin: jaundice. Neurologic: Cranial nerves grossly intact. No confusion. DIAGNOSTICS Reviewed. ASSESSMENT / PLAN #1 Decompensated cirrhosis secondary to alcohol: # Alcohol use disorder, in remission: Last alcoholic drink July 2020. # History of tylenol toxicity: self medicating for neuropathic pain after surgery MELD-Na score: 25 at 03/24/2021 ??6:15 AM MELD-Na score: 27 at 08/03/2021 4:27 AM MELD-Na score: 32 at 09/30/2021 7:38 AM MELD score: 27 at 09/30/2021 7:38 AM Calculated from: Serum Creatinine: 0.74 mg/dL (Using min of 1 mg/dL) at 09/30/2021 7:38 AM Serum Sodium: 126 mmol/L at 09/30/2021 7:38 AM Total Bilirubin: 12.1 mg/dL at 09/30/2021 7:38 AM INR(ratio): 2.6 at 09/30/2021 7:37 AM Age: 31 years Current complications: Jaundice with scleral icterus, hepatic encephalopathy, minimal/trace leg edema, ascites, recent variceal bleeding, no HCC. She was first told about cirrhosis in 01/2021. Last alcoholic drink July 2020. > Regarding transplant candidacy, she is currently undergoing the liver transplant evaluation with the team in [place], pending transplant psychiatry consultation. Unfortunately this was rescheduled until October 22, 2021. I will await her consultation before I present her case to the liver Transplant selection committee in [place], to evaluate her candidacy as a team. #2 Fluid retention: ??Trace lower extremity edema and refractory ascites. - Currently on Furosemide 40 mg QD and spironolactone 100 mg QD. - Low sodium diet, up to 2000 mg of sodium per 24 hours. - Followed with the lymphedema Clinic for significant lower extremity edema. - Continue SBP prophylaxis with Cipro daily: Low protein ascites ?? #3 Portal hypertension with splenomegaly and thrombocytopenia. #4 Unknown??if she has??esophageal varices #4??Possible??Portal hypertensive gastropathy Not on a Beta-tommy. Heart rate = 80 Next UPPER ENDOSCOPY was rescheduled from 08/2021: Pending in 10/2021 ?? #5 Hepatic encephalopathy: ??Controlled stage 0-1 - Continue lactulose with dose titration to maintain 3-4 bowel movements daily, soft stools. - Continue rifaximin. - Needs lab to test for Zinc deficiency: Pending ?? #6 At risk for hepatocellular carcinoma: - No evidence of hepatocellular carcinoma: last imaging CT on 03/03/2021 and US abd 07/2021 - Continue HCC screening with abdominal imaging every 6 months ?? #7 Jaundice with scleral icterus ?? #8 Bone health: ??At risk Osteoporosis/osteopenia # History of fracture of right anterior fifth rib related to a fall Bone density scan will be checked with the upcoming work ?? #9 Fat soluble vitamin deficiency: Both vitamin-A and D On replacement ?? #10 Malnutrition: Malnutrition (undernutrition) related to liver failure as evidenced by ascites - Instructed to consider two daily protein shakes and 3 small meals - Encouraged bedtime snack.? - Avoid uncooked seafood and shellfish - Avoid NSAIDS and no alcohol use- ?? #11 Immunization Received vaccines against hep B viruses and may need vaccine for hepatitis A, pending labs to check immune Annual flu shot and pneumonia vaccine: to be given at the PCP's office. ?? #12 Counseling and patient education: Patient to report any new or worsening symptoms: confusion, fluid retention including increased abdominal girth, distention or lower extremity swelling or gastro intestinal bleeding. Refer to the nearest emergency department if patient notices any blood with the stool, black stools, or if there is bloody vomiting. ?? #13 Chronic pancreatitis: On CT imaging March 2021 No chronic upper abdominal pain Will check stool for elastase next visit ?? #14 Chronic leg pain Medical marijuana through her PCP ?? #15 Newly diagnosed PFO with [id number] atrial shunt: Echo done March 2020 # Severe left atrial enlargement. She was evaluated by Transplant cardiology, and there are no concerns at this time. She will need follow-up with echocardiogram after transplant. ?? # History of eating disorder # Controlled substance agreement signed 2016 # Anxiety disorder 2011 and history of panic attacks # History of Major depression in remission # ADHD 2007 # History of Tobacco use Needs transplant psychiatry evaluation and clearance, pending appointments later this week. Follow-up in GI/Hepatology clinic in 1 months with blood work and for close monitoring. In the meantime I will update her with the result of the discussion and conclusion from the liver transplant committee meeting next week. - Gastroenterology and Hepatology office visit (clinic); Future; Expected date: 11/19/2021 - vitamin A 3,000 mcg (10,000 Unit) capsule; Take 1 capsule (3,000 mcg total) by mouth 3 (three) times a week for 50 doses., Starting 10/08/2021, Until 01/31/2022, Normal - Creatinine with Estimated GFR; Future; Expected date: 11/19/2021 - Sodium; Future; Expected date: 11/19/2021 - Prothrombin Time (PT); Future; Expected date: 11/19/2021 - Bilirubin, Total; Future; Expected date: 11/19/2021 It was a pleasure seeing Ms. Carias today. We answered her questions, and we would be happy to answerany further questions she has. OLAYINKA Trotter Gastroenterology, Hepatology and Transplant hepatology [facility] documented in this encounter Plan of Treatment Upcoming Encounters Date Type Specialty Care Team Description 01/07/2022 Office Visit Community Internal Medicine Ranjit Red P.A.-C. [address] [place] [address] (Gwendolyn rahman) 01/12/2022 Appointment Laboratory Medicine Matthew Jerome M.B.B.S., M.D. [address] [place] [phone] (Gwendolyn rahman) 01/12/2022 Appointment Laboratory Medicine Adeline Frazier M.D., Ph.D. [address] [place] [phone] (Gwendolyn rahman) 01/13/2022 Telemedicine Transplant Joel Tan L.I.C.S.W., M.S. W. [address] [place] [phone] (Gwendolyn rahman) 01/13/2022 Telemedicine Transplant Matthew Jerome M.B.B.S., MSumaDSuma [address] [place] [phone] (Gwendolyn rahman) 01/13/2022 Telemedicine Transplant Adeline Frazier M.D., Ph.D. [address] [place] [address] (Gwendolyn rk) 01/28/2022 Office Visit Gastroenterology and Matthew Jerome, Hepatology Callie Santillan. [address] [place] [phone] (Gwendolyn rk) Scheduled Procedures Name Priority Associated Diagnoses Date/Time ESOPHAGOGASTRODUODENOSCOPY Cirrhosis Alc oholic (HCC) Hypertension Portal (HCC) ESOPHAGOGASTRODUODENOSCOPY Cirrhosis Alc oholic (HCC) Ascites Anemia Macrocytic Thrombocytopenia (HC C) Deficiency Coagulation Acquired (HCC) Scheduled Referrals Name Type Priority Associated Order Schedule Diagnoses Gastroenterology and Outpatient Routine Cirrhosis Expecte d: Hepatology office visit Referral Alcoholi c (HCC) 11/19/2021, (clinic) Hypertension Expires: Portal (HCC) 01/08/2023 Thrombocytopenia (HCC) Abnormal Liver Function Test Deficiency Vitamin A documented as of this encounter Results (ABNORMAL) Bilirubin, Total (12/02/2021 4:14 PM CDT) P athologist Signature Bilirubin, 11.8 (H) <=1.2 12/02/2021 OW[place] Total, P mg/dL 6:46 PM CDT Specimen Anatomical Collection Method Collection Time Receive d Time (Source) Location / / Volume Laterality Blood (Blood, 12/02/2021 4:14 PM 12/03/19 6:28 Venous) CDT PM CDT Matthew Santillan M.D. LAB BLOOD ADD-ON Performing Organization Address City/State/ZIP Code Phon e Number [facility]- [address] [place] [address] [place] [address] System in [place] [address] (ABNORMAL) Prothrombin Time (PT) (12/02/2021 4:14 PM [...] Organization Address City/State/ZIP Code Phon e Number [facility] [address] [place] [address] [place] [address] System in [place] [address] [facility] documented in this encounter Visit Diagnoses Diagnosis Cirrhosis Alcoholic (HCC) - Primary Hypertension Portal (HCC) Thrombocytopenia (HCC) Abnormal Liver Function Test Deficiency Vitamin A documented in this encounter Additional Health Concerns Assessment Noted Time PHQ-9 Depression Total Score: 10 10/06/2021 5:00 PM CD T documented as of this encounter Care Teams Creative Guru Relationship Specialty Start Date End Date Elsewhere, Pcp PCP - General Family Medicine 03/10/20 11/30/21 [facility] [place] [facility] 08/25/21 Ervin Schroeder MD Referring Provider Family Medicine 03/24/211979 [address] [place] [address] documented as of this encounter
--- OUTSIDE RECORDS SUMMARY | 2021-12-28 23:28 | XMS_ITS | Encounter Summary ---
:1990 Author Organization [facility] Address [address] [place] [address] Care Team Providers Name Role Phone Elsewhere, Pcp Primary Care Provider Unavailable Encounter Details Date Type Department Care Team Description 10/07/2021 Hospital Encounter Department of Rut Hernández s Alcoholic (HCC); Pulmonary Medicine Warren Schaefer M.D., Abnorm al Liver Function Test; in [facility] Ascites; [place] [address] [place] [address] Pretransplant Recipient Evaluation Exam; [address] [place], [place] [phone] Social History Tobacco Use Types Packs/Day [...] or relatives? How often do you attend mandaeism or Never 2021 denominational services? Do you belong to any clubs or No 07/17/2021 organizations such as mandaeism groups, unions, fraThe Language Express or athletic groups, or school groups? How [...] place to sleep or slept in a intermediate (including now)? Education Answer Date Recorded What is the highest level of school Associate degree: ruth barker, 07/16/2021 you have completed or the highest technical, or vocational p rolf degree you have received? 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 [...] [facility] Ranjit Red P.A.-C. [address] [place] [address] (Gwendolyn rahman) 01/12/2022 Appointment Laboratory Medicine Matthew Jerome M.B.B.S., M.D. [address] [place] [phone] (Gwendolyn rahman) 01/12/2022 Appointment Laboratory Medicine Adeline Frazier M.D., Ph.D. [address] [place] [phone] (Gwendolyn rahman) 01/13/2022 Telemedicine Transplant Joel Tan L.I.C.S.W., M.S. W. [address] [place] [phone] (Gwendolyn rahman) 01/13/2022 Telemedicine Transplant Matthew Jerome M.B.B.S., M.Slick. [address] [place] [phone] (Gwendolyn rahman) 01/13/2022 Telemedicine Transplant Adeline Frazier M.D., Ph.D. [address] [place] [address] (Gwendolyn rk) 01/28/2022 Office Visit Gastroenterology and Matthew Jerome, Hepatology Lilian Santillan [address] [place] [phone] (Gwendolyn rahman) Scheduled Procedures Name Priority Associated Diagnoses Date/Time ESOPHAGOGASTRODUODENOSCOPY Cirrhosis Alc oholic (HCC) Hypertension Portal (HCC) ESOPHAGOGASTRODUODENOSCOPY Cirrhosis Alc oholic (HCC) Ascites Anemia Macrocytic Thrombocytopenia (HC C) Deficiency Coagulation Acquired (HCC) documented as of this encounter Procedures Procedure Name Priority Date/Time Associated Diagnosis Comme nts PULMONARY FUNCTION Routine 10/07/2021 3:07 PM Cirrhosis Alcoho lic Results for this TESTS CDT (HCC) procedure are in Abnormal Liver the results Function Test section. Ascites Pretransplant Recipient Evaluation Exam Preoperative Exam documented in this encounter Results Pulmonary Function Tests (10/07/2021 3:07 PM CDT) P athologist Signature FVC 4.04 L [facility] [place] FVC% 111 % [facility] FVCLLN 2.88 L [place] [place] [facility] FEV1 3.62 L [facility] [place] [facility] FEV1% 118 % [facility] [place] [id number] 2.45 L [place] [place] [facility] FEV1/FVC 90 % [facility] FEV1/FVCLLN 73 % [facility] FEF 25-75 5.30 L/sec [facility] [id number]% 154 % [facility] [place] [id number] 2.20 L/sec [facility] [place] SVC 4.19 L [facility] [place] [facility] RV 1.17 L [facility] [place] SU[facility] RVULN 2.33 L [facility] [place] SU[facility] TLC 5.36 L [place] [facility] TLC% 111 % [facility] SUITE TLCLLN 3.47 L [facility] SUITE RV/TLC 22 % [facility] SUITE RV/TLC% 72 % [facility] SUITE RV/TLCuln 44 % [facility] SUITE DLCO 16.63 ml/min/mmHg [facility] SUITE DLCO% 77 % [facility] SUITE DLCOlln 15.76 ml/min/mmHg [facility] SUITE DLCOc 20.09 ml/min/mmHg [facility] SUITE DLCOc% 94 % [facility] SUITE VA 5.32 L [facility] SU[facility] VA% 115 % [facility] SU[facility] VAlln 3.76 L [facility] SUITE Height 159.00 [facility] Weight in Kg 59.70 [facility] BMI 23.6 [facility] Specimen (Source) Anatomical Collection Method Collection Time Re ceived Time Location / / Volume Laterality 10/07/2021 2:32 PM CDT Impressions [facility] - 10/10/2021 8:25 AM C DT TECHNICAL [...] Organization Address City/State/ZIP Code Phon e Number [facility] NA documented in this encounter Visit Diagnoses Diagnosis Cirrhosis Alcoholic (HCC) Abnormal Liver Function Test Ascites Pretransplant Recipient Evaluation Exam Preoperative Exam documented in this encounter Additional Health Concerns Assessment Noted Time PHQ-9 Depression Total Score: 10/06/2021 5:00 PM CD T documented as of this encounter Care Teams Adult Services Librarian Relationship Specialty Start Date End Date Elsewhere, Pcp PCP - General Family Medicine 03/10/20 11/30/21 [facility] [place] [facility] 08/25/21 Ervin Schroeder MD Referring Provider Family Medicine 03/24/21[address] [place] [address] documented as of this encounter
--- OUTSIDE RECORDS SUMMARY | 2021-12-28 23:28 | XMS_ITS | Encounter Summary ---
:1990 Author Organization [facility] Address [address] [place] [address] Care Team Providers Name Role Phone Elsewhere, Pcp Primary Care Provider Unavailable Reason for Visit Reason Comments [place] MED REQUEST Encounter Details Date Type Department Care Team Description 10/01/2021 Clinical Communication Department of KACY Crain MED REQUEST Nicotine Jessy Gannon M.A., [place], C.T.T.S. [facility], [address] [place] [address] in [facility] [phone] [place] [address] [place], [place] (Work) [phone] Social History Tobacco Use Types Packs/Day Years [...] do you attend congregational or Never 2021 yarsanism services? Do you belong to any clubs or No 07/17/2021 organizations such as congregational groups, unions, fraNeronote or athletic groups, or school groups? How [...] or the highest technical, or vocational p american hospital associationram degree you have received? 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 - 10/01/2021 12:13 PM CDT 2 mg MINI lozenges with refills, flavored [facility] in [place] documented in this encounter Plan of Treatment Upcoming Encounters Date Type Specialty Care Team Description 01/07/2022 Office Visit Community Internal Medicine Ranjit Red P.A.-C. [address] [place] [address] (Wo rk) 01/12/2022 Appointment Laboratory Medicine Matthew Jerome M.B.B.S., Callie. [address] [place] [phone] (Wo rk) 01/12/2022 Appointment Laboratory Medicine Adeline Frazier M.D., Ph.D. [address] [place] [phone] (Wo rk) 01/13/2022 Telemedicine Transplant Joel Tan L.I.C.S.W., M.S. W. [address] [place] [phone] (Wo rk) 01/13/2022 Telemedicine Transplant Matthew Jerome M.B.B.S., Lilian [address] [place] [phone] (Wo rk) 01/13/2022 Telemedicine Transplant Adeline Frazier M.D., Ph.D. [address] [place] [phone] (Wo rk) 01/28/2022 Office Visit Gastroenterology and Matthew Jerome, Hepatology Tyrell, Lilian [address] [place] [phone] (Wo rk) Scheduled Procedures Name Priority Associated Diagnoses Date/Time ESOPHAGOGASTRODUODENOSCOPY Cirrhosis Alc oholic (HCC) Hypertension Portal (HCC) ESOPHAGOGASTRODUODENOSCOPY Cirrhosis Alc oholic (HCC) Ascites Anemia Macrocytic Thrombocytopenia (HC C) Deficiency Coagulation Acquired (HCC) documented as of this encounter Visit Diagnoses Not on filedocumented in this encounter Care Teams Student Outreach Coordinator Relationship Specialty Start Date End Date Elsewhere, Pcp PCP - General Family Medicine 03/10/20 11/30/21 [facility] 08/25/21 Ervin Schroeder MD Referring Provider Family Medicine 03/24/[address] [place] [address] documented as of this encounter
--- OUTSIDE RECORDS SUMMARY | 2021-12-28 23:28 | XMS_ITS | Encounter Summary ---
:1990 Author Organization [facility] Address [address] [place] [phone] Care Team Providers Name Role Phone Elsewhere, Pcp Primary Care Provider Unavailable Reason for Visit Transplant (Routine) - Closed Specialty Diagnoses / Procedures Referred By Contact Refer red To Contact Transplant Surgery / Warren Hernández [facility] Transplant iLlian, M.P.H. [address] [place] [id number] Referral ID Status Reason Start Date Expiration Date Visits Requ ested Visits Authorized [id number] Closed 08/26/2021 08/26/2022 1 1 Encounter Details Date Type Department Care Team Description 10/03/2021 Office Visit Silvano Funez M.D. [address] [place] [address] [phone] Patent Foramen Ovale (HCC) (Primary Dx); [facility] Abelino Chow M.D. 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 How often do you attend amish or Never 2021 amish services? 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 - 10/03/2021 9:15 AM CDT SUBJECTIVE REFERRAL SOURCE Dr. Wahl. CHIEF COMPLAINT/REASON FOR VISIT Catia Carias is a 31 y.o. female who presents for evaluation of cardiovascular status as a partof liver transplant evaluation. HISTORY OF PRESENT ILLNESS I interviewed and examined her and reviewed the record. She is a 31 y.o. female who presents for cardiopulmonary assessment prior to liver transplant consideration for alcoholic cirrhosis. She does not have a history of cardiopulmonary disease. She denies exertional dyspnea, palpitations, syncope, orthostatic lightheadedness, chest pain. She does have significant generalized fatigue. Six months ago she had ascites requiring paracentesis but she has not recently had significant abdominal distention. She has 2+ dependent edema which has improved with leg wraps. Patient has a normal echocardiogram except for having shunting noted. The etiology is unclear. Fortunately her oxygenation is quite satisfactory with O2 saturation of 98%. She has a history of cigarette smoking and she has set a stop date for later this month. REVIEW OF SYSTEMS Negative except as noted. The following portions of the patient's history were reviewed and updated as appropriate: Allergies,current medications, family history, medical history, social history, surgical history and problem list. CURRENT MEDICATIONS Current Medications: ??? ciprofloxacin (CIPRO) 500 mg tablet, [...] a day before breakfast and dinner. ??? nicotine polacrilex (NICORETTE) 2 mg lozenge, Apply 1 lozenge (2 mg total) to cheek as needed for smoking cessation. ??? ondansetron ODT (ZOFRAN-ODT) 8 mg disintegrating [...] times a week for 50 doses. ??? Xifaxan 550 mg tablet, Take 1 tablet (550 mg total) by mouth 2 (two) times a day. OBJECTIVE VITAL SIGNS Weight 60.9 kg, temperature 37.1??, blood pressure 94/52, pulse 102 PHYSICAL EXAMINATION General: Comfortable, no acute distress. Skin: Icteric, warm and dry. Eyes: Icteric. ENT: No palpable thyroid enlargement. Lymph: No cervical adenopathy. Heart: Normal S1, normal S2, normal jugular venous pulsation, no gallop, basal 2/6 systolic ejectionmurmur, normal carotid upstroke. Lungs: Clear. Abdomen: Soft, nontender, probable ascites, liver enlargement, no mass, no bruit, no palpable enlargement the abdominal aorta. Joints: No deformity or inflammation. Mental: Mood and affect appropriate. Neurologic: Oriented, but cognitively slow, no gross motor deficits. Extremities: Warm and well perfused, 2+ lower extremity edema. DIAGNOSTICS No results found for this or any previous visit (from the past 72 hour(s)). ASSESSMENT / PLAN Encounter Diagnoses Name Primary? Patent Foramen Ovale (HCC) Yes ??? Hypertension Portal (HCC) ??? Cirrhosis Alcoholic (HCC) ??? Pretransplant Recipient Evaluation Exam She does not have a history of cardiac disease. She is not have symptoms of angina or heart failure.The chest x-ray shows mild hyperexpansion of the lungs and normal heart size. Hemoglobin is 8.9, creatinine 0.7, total bilirubin 12.1, and albumin is 3.7. INR is 2.6. The EKG is unremarkable except for a mildly prolonged QT interval. This will need to be kept in mindwhen medications are prescribed in the future to minimize QT prolonging agents. Left and right ventricular function are excellent, RV systolic pressure is mildly increased at 34, and she has left atrial enlargement. There is a PFO with left to right shunt. I do not think that thiswill prevent her from going forward with transplantation. Care should be taken to avoid paradoxical air emboli. When she recovers fully from transplantation I would check her echocardiogram on an annual basis to monitor the PFO and shunt. I do not think that further cardiac assessment is necessary at this point Abelino Chow M.D. documented in this encounter Plan of Treatment Upcoming Encounters Date Type Specialty Care Team Description 01/07/2022 Office Visit [facility] Ranjit Red P.A.-C. [address] [place] [phone] (Gwendolyn rahman) 01/12/2022 Appointment Laboratory Medicine Matthew Jerome M.B.B.S., M.D. [address] [place] [phone] (Gwendolyn rahman) 01/12/2022 Appointment Laboratory Medicine Adeline Frazier M.D., Ph.D. [address] [place] [phone] (Gwendolyn rahman) 01/13/2022 Telemedicine Transplant Joel Tan L.I.C.SZara, M.S. W. [address] [place] [phone] (Gwendolyn rahman) 01/13/2022 Telemedicine Transplant Matthew Jermoe M.B.B.S., M.D. [address] [place] [phone] (Gwendolyn rahman) 01/13/2022 Telemedicine Transplant Adeline Frazier M.D., Ph.D. [address] [place] [phone] (Gwendolyn rahman) 01/28/2022 Office Visit Gastroenterology and Matthew Jerome Hepatology Lilian Santillan [address] [place] [phone] (Wo rk) Scheduled Procedures Name Priority Associated Diagnoses Date/Time ESOPHAGOGASTRODUODENOSCOPY Cirrhosis Alc oholic (HCC) Hypertension Portal (HCC) ESOPHAGOGASTRODUODENOSCOPY Cirrhosis Alc oholic (HCC) Ascites Anemia Macrocytic Thrombocytopenia (HC C) Deficiency Coagulation Acquired (HCC) documented as of this encounter Visit Diagnoses Diagnosis Patent Foramen Ovale (HCC) - Primary Hypertension Portal (HCC) Cirrhosis Alcoholic (HCC) Pretransplant Recipient Evaluation Exam documented in this encounter Care Teams Engineering Technician Parking Relationship Specialty Start Date End Date Elsewhere, Pcp PCP - General Family Medicine 03/10/20 11/30/21 [facility] 08/25/21 Ervin Schroeder MD Referring Provider Family Medicine 03/24/[address] [place] [phone] documented as of this encounter
--- OUTSIDE RECORDS SUMMARY | 2021-12-28 23:28 | XMS_ITS | Encounter Summary ---
:1990 Author Organization [facility] Address [address] [place] [address] Care Team Providers Name Role Phone Elsewhere, Pcp Primary Care Provider Unavailable Reason for Visit Outpatient (Routine) - Closed Specialty Diagnoses / Procedures Referred By Contact Refer red To Contact Preventive Medicine Diagnoses Cirrhosis Alcoholic (HCC) Abnormal Liver Function Test Ascites Pretransplant Recipient Evaluation Exam Preoperative Exam Warren Hernández [facility] Lilian, M.P.H. [address] [place] [address] Referral ID Status Reason Start Date Expiration Date Visits Requ ested Visits Authorized [id number] Closed 08/25/2021 08/25/2022 1 1 Encounter Details Date Type Department Care Team Description 10/01/2021 Comprehensive Visit Section of Preventive, Alicia Diggs Counseling Preventive (Primary Dx); Transportation and K, STUDENT NURSE, Cirrhosis Alcoholic (HCC); Occupational Medicine C.N.P. Abnormal Liver Function Test; in [place], [address] [place] [address] Pretransplant Recipient Evaluation Exam; [address] [facility], Preoperative Exam [facility] [phone] Social History Tobacco Use Types Packs/Day Years [...] or relatives? How often do you attend episcopalian or Never 2021 rastafari services? 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 - 10/01/2021 2:30 PM CDT SUBJECTIVE CHIEF COMPLAINT - Comprehensive Preventive Services Evaluation. Catia Carias is a 31 y.o. female who comes in today for her preventive screening exam. PCP: Dr. Roge Perez Past medical history is significant for pre transplant evaluation. HPI Immunizations: We reviewed immunizations. She prefers to follow-up on all of her immunizations at home. She did appreciate clarification regarding immunization needs today. Immunization History Administered Date(s) Administered ??? DTP 1990, 1990, 02/23/1991, 03/14/1992 ??? DTaP (Infanrix, Tripedia) 05/26/1995 ??? HepB Pediatric/Adolescent 04/30/1997, 12/17/1997, 12/28/2000 ??? Hib (PRP-OMP) (PedvaxHIB) 03/08/1991, 06/01/1991, 02/08/1992 ??? Hib, Unspecified 03/08/1991, 06/01/1991, 02/08/1992 ??? Influenza TIV (IM) 03/03/2003, 03/21/2003, 03/21/2007, 03/26/2008, 02/26/2009 ??? Influenza, Seasonal, Injectable 03/21/2003, 03/21/2007, 03/26/2008, 02/26/2009 ??? MMR 11/09/1991, 12/17/1997 ??? OPV 1990, 1990, 02/23/1991, 03/14/1992, 05/26/1995 ??? Polio, Unspecified 1990, 1990, 03/14/1992, 05/26/1995 ??? SARS-COV-2 (COVID-19) - PFIZER (12 years or older) 03/25/2021, 04/15/2021 ??? Td (Adult), adsorbed 09/08/2002 ??? Tdap 03/07/2014 ??? influenza vaccine quad (FLUZONE/FLUARIX) (6 months and older)(PF) 03/07/2014 Tetanus/Tdap: This is recommended every 10 years. Next due March 2024. Shingles: Plans to go forward with this at home. Influenza: This is recommended yearly. Pneumococcal: If she has not received any other pneumococcal vaccinations she is Eligible for Prevnar 20 then pneumococcal vaccinations series would be complete. Hep B: This is complete/to date. Hep A: 2 does 6 months apart. HPV: Series of 3 recommended COVID: Plans to get at home where she has had her other COVID vaccines. Colorectal: Has not had screening, per the guidelines. FH: None. SX: None. Women's Health: She prefers to have her Pap smear at home as she also needs to have her IUD removed and a new 1 inserted. Last pap smear was done on 5 years ago and results were normal... Hx of abnormal pap smear: Never. HX Other: None. BCM: IUD in place LMP was None on IUD approx 6 years, due to have removed. States it is crooked Family history of breast, uterine, ovarian cancer: None. STD's ;None. HRT use: Mirena. Last mammogram was done on: Has never been screened. Hx of breast biopsies: None. Lipids, glucose, blood pressure, bone density, and infectious disease screenings are managed by the Transplant Team. BMI: 24.83 SYSTEMS REVIEW As per HPI or noncontributory to presenting complaint. PAST MEDICAL/SURGICAL HISTORY As per HPI or noncontributory to presenting complaint. FAMILY HISTORY As per HPI or noncontributory to presenting complaint. OBJECTIVE Physical Exam Pleasant, friendly female casually groomed. Assessment 1. Comprehensive Preventive Services counseling Based on the current data, the following action plan was formulated: 1. Immunizations: As above 2. Screening exam(s): She intends to follow up at home with her Pap smear screening and IUD replaced. 3. Subspecialty consultations for preventive indications: None. Under the care of the Transplant Team 4. Education provided: We discussed/reviewed screening guidelines I discussed with patient that I would forward this visit note to her home address so she can share with her primary care provider. 1. I would recommend annual flu vaccine. Other vaccines recommendations as noted above. 2. I would recommend annual clinical breast exam following mammogram. Consider screening to begin atage 40-45.. 3. Cervical cancer screening for preventive purposes is every 3-5 years. For immune compromised persons a yearly screen is recommended. Those immune compromise person's with a benign history and after 3 negative Pap smears/HPV screening could go to every 3 year Pap smear screening with annual vulvar exam. 4. Colorectal cancer screening would next due at age 45-50, or per treating/primary care provider. Other health conditions were not discussed during the current evaluation and should be followed up with their primary health care provider as needed. Screening exam and recommendations review. I will forward results to patient when complete via the portal or a letter. Patient has my contact information. I personally spent over half of a total 15 minutes in counseling and discussion with the patient andcoordination of care as described above. NO CHARGE documented in this encounter Plan of Treatment Upcoming Encounters Date Type Specialty Care Team Description 01/07/2022 Office Visit [facility] Ranjit Red P.A.-C. [address] [place] [phone] (Wo rk) 01/12/2022 Appointment Laboratory Medicine Matthew Jerome M.B.B.SSuma, M.D. [address] [place] [phone] (Wo rk) 01/12/2022 Appointment Laboratory Medicine Adeline Frazier M.D., Ph.D. [address] [place] [phone] (Wo rk) 01/13/2022 Telemedicine Transplant Joel Tan L.I.C.SSumaW., M.S. W. [address] [place] [phone] (Wo rk) 01/13/2022 Telemedicine Transplant Matthew Jerome M.B.B.S., M.D. [address] [place] [phone] (Wo rk) 01/13/2022 Telemedicine Transplant Adeline Frazier M.D., Ph.D. [address] [place] [phone] (Wo rk) 01/28/2022 Office Visit Gastroenterology and Matthew Jerome Hepatology Lilian Santillan [address] [place] [phone] (Wo rk) Scheduled Procedures Name Priority Associated Diagnoses Date/Time ESOPHAGOGASTRODUODENOSCOPY Cirrhosis Alc oholic (HCC) Hypertension Portal (HCC) ESOPHAGOGASTRODUODENOSCOPY Cirrhosis Alc oholic (HCC) Ascites Anemia Macrocytic Thrombocytopenia (HC C) Deficiency Coagulation Acquired (HCC) documented as of this encounter Visit Diagnoses Diagnosis Counseling Preventive - Primary Cirrhosis Alcoholic (HCC) Abnormal Liver Function Test Ascites Pretransplant Recipient Evaluation Exam Preoperative Exam documented in this encounter Care Teams Pacu Rn Relationship Specialty Start Date End Date Elsewhere, Pcp PCP - General Family Medicine 03/10/20 11/30/21 [facility] [place] [facility] 08/25/21 Ervin Schroeder MD Referring Provider Family Medicine 03/24/[address] [place] [phone] documented as of this encounter
--- OUTSIDE RECORDS SUMMARY | 2021-12-28 23:29 | XMS_ITS | Encounter Summary ---
:1990 Author Organization [facility] Address [address] [place] [address] Care Team Providers Name Role Phone Elsewhere, Pcp Primary Care Provider Unavailable Reason for Visit Reason Comments Med Management Outpatient (Routine) - Closed Specialty Diagnoses / Procedures Referred By Contact Refer red To Contact Pharmacy Diagnoses Cirrhosis Alcoholic (HCC) Abnormal Liver Function Test Ascites Pretransplant Recipient Evaluation Exam Preoperative Exam Warren Hernández M.D., [facility] M.P.H. [address] [place] [phone] Referral ID Status Reason Start Date Expiration Date Visits Requ ested Visits Authorized [id number] Closed 08/25/2021 08/25/2022 1 1 Encounter Details Date Type Department Care Team Description 09/30/2021 Office Visit Warren Carter M.D., M.P.H. [address] [place] [address] [phone] Cirrhosis Alcoholic (HCC); Evon Collins Pharm.D., R.Ph. 200 [place] [address] Abnormal Liver Function Test; Transplantation and Ascites; Clinical Regeneration in Pre transplant Recipient Evaluation Exam; [place], [place] Preoperative Exam 200 [place] [phone] Social History Tobacco Use Types Packs/Day [...] or relatives? How often do you attend sikh or Never 2021 cheondoism services? 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 - 09/30/2021 8:00 AM CDT Pre-Transplant Assessment SUBJECTIVE Referring Provider Warren Hernández M.D., M.P.H. Chief Complaint Targeted Transplant Medication Therapy Management: Review of therapies for liver disease, medicationadherence, and any medications that impact transplant candidacy. History of Present Illness (HPI) Catia Carias is a 31 y.o. female who is seen today by [facility] Pharmacist. 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 Patient is not on dialysis. Patient was at the visit with patient's caregiver Parris (mother). The patient does not appear cognitively impaired at this visit, but speech was slow at times. She did take a dose of Oxycodone earlier this morning. 1. Assessment of Pharmacologic Risk The following represents pertinent positives to the patient's care: Chronic pain medications: Oxycodone, current dose 5 mg twice daily, occasionally three times daily, being prescribed 45 tablets for a 22 day supply, refilling consistently (09/11, 08/16, 07/28 most recently). She is also on Gabapentin 600 mg AM and afternoon and 900 mg at bedtime and she takes Ropinerole2 mg once daily at bedtime for RLS. She was previously given Celecoxib for pain, but stopped that atthe discretion of a provider (and it was ineffective). She also does have a medical marijuana card for chronic pain and terminal illness, currently using a 2% THC cream to her legs twice daily. She also has cannabis flower that she smokes occasionally and a tincture that she would smoke rarely. She notes that she wishes to transition to a tincture or edibles in the future, as smoking hurts her lungs.Medical Cannabis [place] registration #[id number]. Insomnia medications: She also has hydroxyzine 25 mg tablets, usually taking 25 mg once daily at night. She was given Diazepam, but is no longer using that. She does inhale medical CBD about one weeklythat helps with insomnia. GERD/Heartburn/GI prophylaxis medications: Pantoprazole 40 mg once daily. She does use Ondansetron or medical cannabis as needed for nausea. Liver Disease medications: Diuretic regimen includes Furosemide 40 mg daily and Spironolactone 100 mg daily. For hepatic encephalopathy she is on Lactulose (30 mL used sparingly as she has 3 BM per daywithout) and Rifaximin 550 mg twice daily. She also is on Ciprofloxacin 500 mg once daily for SBP prophylaxis. Current vitamin/herbal supplementation includes: Magnesium oxide 400 mg twice daily, Folic acid 1 mgdaily, thiamine 100 mg daily, ergocalciferol 87875 IU weekly on Wednesday and vitamin A 83659 units three days per week. Contraception medications: IUD 2. Assessment of Non-Pharmacologic Risk How does the patient manage their medication? The patient does keep a medication list. The patient uses a pillbox. Her home health nurse fills the pill box. The patient uses no assistive devices to manage medications. Refills are obtained by caregiver ordering. The patient misses medication less than 1 time per month. The patient uses [employer] locally. Does the patient know what medications are for (aware of medication indication, dose, schedule)? The patient knows about half of the doses, indications and schedules of their medications. The patient was able to articulate medication concerns today. How involved is the patient in their own care? Moderately Are there any current socioeconomic barriers with respect to obtaining medications? Has insurance and does not experience difficulty affording medications at this time. She does note medical cannabis is expensive. Are there any potential communication or physical barriers that may affect adherence? none 3. Medication Reconciliation Medications have been updated in EHR to reflect patient reported usage. The patient brought none of their bottles with them today. Social History The patient reports that she has been smoking cigarettes. She has been smoking about 0.25 packs per day. She has never used smokeless tobacco. She reports previous alcohol use. She reports current druguse. Drug: Marijuana. Past Medical History Past Medical History: Diagnosis Date ??? Ascites ??? Cirrhosis Alcoholic (HCC) ??? Cirrhosis Of Liver NOS ??? Jaundice Allergies Allergies Allergen Reactions ??? Azithromycin Other (see comments) Unknown Medication List Outpatient Encounter Medications as of 09/30/2021 Medication Sig Dispense Refill ??? ciprofloxacin (CIPRO) [...] breakfast and dinner. 60 tablet 1 ??? ondansetron ODT (ZOFRAN-ODT) 8 mg disintegrating tablet Take 1 tablet by mouth 3 (three) times aday as needed. ??? oxyCODONE (ROXICODONE) 5 mg immediate release tablet Take 5 mg by mouth 3 (three) times a day asneeded for pain. ??? pantoprazole (PROTONIX) 40 mg EC tablet Take 1 tablet (40 mg total) by mouth every morning before breakfast. 30 tablet 1 ??? rOPINIRole XL (REQUIP XL) 2 mg [...] (two) times a day. 180 tablet 1 ??? LORazepam (ATIVAN) 1 mg tablet Take 1 tablet (1 mg total) by mouth once for [address] scan once 1 tablet 0 ??? promethazine (PHENERGAN) 25 mg tablet Take 25 mg by mouth every 6 (six) hours as needed for nausea. No facility-administered encounter medications on file as of 09/30/2021. OBJECTIVE Systems Review Vitals Wt Readings from Last 3 Encounters: 09/24/21 58.9 kg 08/05/21 58.9 kg 08/02/21 58.2 kg Pulse Readings from Last 3 Encounters: 08/05/21 82 08/03/21 84 07/27/21 91 BP Readings from Last 3 Encounters: 08/05/21 (!) 110/52 08/03/21 (!) 99/54 07/27/21 (!) 120/51 Resulted labs have been reviewed. Lab Results Component Value Date CREATININE 0.68 09/19/2021 Lab Results Component Value Date HDL 68 09/08/2018 CHOL 178 09/08/2018 TRIG 127 03/13/2021 TTLCHOLHDLRT 2.62 09/08/2018 ASSESSMENT / PLAN 1. General Transplant Medication Review The patient was provided the Transplant Medication Education handout entitled Your Transplant Medications. The contents of the handout were discussed with the patient and all questions were answered. 2. Assessment of Pharmacologic Risk The patient has medication-related issues which increase pharmacologic risk and may require enhancedmonitoring our medication discontinuation in the perioperative period: Medications with potential drug interactions (clinically relevant current and predicted): FLUCONAZOLE and TACROLIMUS : Concurrent use of FLUCONAZOLE and TACROLIMUS may result in increased tacrolimus exposure and risk of tacrolimus toxicity, including QT-interval prolongation. Medical Cannabis and TACROLIMUS : Potential for altered Tacrolimus elimination Medications for chronic pain: She is on a regimen including high dose Gabapentin (SCr not available at time of note writing, unclear if the dose is appropriate for her renal function), chronic narcotics (Oxycodone 10 mg daily), and medical cannabis. I did introduce the necessity of discontinuing cannabis use before transplant, and that it must be avoided following transplantation due to drug interactions with immunosuppression. Hormonal contraception/replacement therapy was not discussed in detail. Patient should receive contraception counseling following transplantation. 3. Assessment of Non-Pharmacologic Risk SIPAT Scoring Treatment Compliance/Adherence (Pertinent to medical issues) Contraindications specific to pharmacist assessment regarding treatment compliance/adherence: Relative Contraindications: While she has a home health nurse organizing medications, she is educated about her medications and clearly follows provider recommendations. She may be late with taking medication, but misses rarely, and if so, is due to nausea; low risk SIPAT Section IV recommended score: 2 out of 8 (Good Candidate) To address potential barriers, the following was discussed: Recommend the patient utilize reminder alarm. 4. Current Medication Recommendations No recommendations at this time. Defer to our psychiatry and pain management colleagues regarding minimization of opioid and cannabis products. 5. Pharmacist Impression All medications, as reported to the pharmacist by the patient, were reviewed for indications, side effects and safety while considering transplant candidacy. From a pharmacy perspective, at this time Derrek not foresee any medication-related barriers that would preclude transplantation. Evon Joseph Pharm.D., R.Ph. Clinical Pharmacist documented in this encounter Plan of Treatment Upcoming Encounters Date Type Specialty Care Team Description 01/07/2022 Office Visit [facility] Ranjit Red P.A.-C. [address] [place] [address] (Wo rk) 01/12/2022 Appointment Laboratory Medicine Matthew Jerome M.B.BSumaS., M.D. [address] [place] [phone] (Wo rk) 01/12/2022 Appointment Laboratory Medicine Adeline Frazier M.D., Ph.D. [address] [place] [phone] (Wo rk) 01/13/2022 Telemedicine Transplant Joel Tan L.I.C.S.W., M.S. W. [address] [place] [phone] (Wo rk) 01/13/2022 Telemedicine Transplant Matthew Jerome M.B.B.S., M.D. [address] [place] [phone] (Wo rk) 01/13/2022 Telemedicine Transplant Adeline Frazier M.D., Ph.D. [address] [place] [phone] (Wo rk) 01/28/2022 Office Visit Gastroenterology and Matthew Jerome, Hepatology VikB.SSuma, M.D. [address] [place] [phone] (Wo rk) Scheduled Procedures Name Priority Associated Diagnoses Date/Time ESOPHAGOGASTRODUODENOSCOPY Cirrhosis Alc oholic (HCC) Hypertension Portal (HCC) ESOPHAGOGASTRODUODENOSCOPY Cirrhosis Alc oholic (HCC) Ascites Anemia Macrocytic Thrombocytopenia (HC C) Deficiency Coagulation Acquired (HCC) documented as of this encounter Visit Diagnoses Diagnosis Cirrhosis Alcoholic (HCC) Abnormal Liver Function Test Ascites Pretransplant Recipient Evaluation Exam Preoperative Exam documented in this encounter Care Teams Wildlife Policy Professional Relationship Specialty Start Date End Date Elsewhere, Pcp PCP - General Family Medicine 03/10/20 11/30/21 [facility] [place] [facility] 08/25/21 Ervin Schroeder MD Referring Provider Family Medicine 03/24/[address] [place] [phone] documented as of this encounter
--- OUTSIDE RECORDS SUMMARY | 2021-12-28 23:29 | XMS_ITS | Encounter Summary ---
:1990 Author Organization [facility] Address [address] [place] [address] Care Team Providers Name Role Phone Elsewhere, Pcp Primary Care Provider Unavailable Reason for Referral Outpatient (Routine) - Closed Specialty Diagnoses / Procedures Referred By Contact Refer red To Contact Diagnoses Fatty Liver Failure Liver (HCC) Cirrhosis Alcoholic (HCC) Preoperative Exam Ascites Abnormal Liver Function Test Warren Hernández M.D., [facility] Region Procedures DX Chest AP or PA and Lateral 2 Views M.P.H. [address] [place] [address] Referral ID Status Reason Start Date Expiration Date Visits Requ ested Visits Authorized [id number] Closed 09/08/2021 09/08/2022 1 1 Reason for Visit Outpatient (Routine) - Closed Specialty Diagnoses / Procedures Referred By Contact Refer red To Contact Diagnoses Fatty Liver Failure Liver (HCC) Cirrhosis Alcoholic (HCC) Preoperative Exam Ascites Abnormal Liver Function Test Warren Hernández M.D., [facility] Region Procedures DX Chest AP or PA and Lateral 2 Views M.P.H. [address] [place] [address] Referral ID Status Reason Start Date Expiration Date Visits Requ ested Visits Authorized [id number] Closed 09/08/2021 09/08/2022 1 1 Encounter Details Date Type Department Care Team Description 09/22/2021 Hospital Encounter Department of Deena Hernández fred; Radiology, [place] Warren Schaefer M.D., Greg segal Liver (HCC); Hospital, in M.P.H. Cirrhosis Alcoholic (HCC); [place], [place] [address] [facility] Preoperative Exam; [address] [place], [place] Ascites; [place] [address] Abnormal Liver Function Test [id number] [phone] Social History Tobacco Use Types Packs/Day Years [...] many times do you More than three meolny es a week 07/17/2021 talk on the phone with family, friends, or neighbors? How often do you get together with friends Twice a week 07/17/2021 or relatives? How often do you attend rastafari or Never 2021 yazdanism services? 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 ondansetron ODT Take 1 tablet by 0 04/23/2021 (ZOFRAN-ODT) 8 mg mouth 3 (three) disintegrating tablet times a day as needed. pantoprazole (PROTONIX) Take 1 tablet (40 30 tablet 1 03/24 40 mg EC tablet mg total) by mouth every morning before breakfast. Xifaxan 550 mg tablet Take 1 tablet (550 180 tablet 1 202110/19/2021 mg total) by mouth 2 (two) times a day. amitriptyline 2%-ketamine Apply topically 3 30 g 3 09/30/2021 5%-lidocaine 5% in (three) times a lipoderm day. Apply to affected areas three times daily. ciprofloxacin (CIPRO) 500 Take 1 tablet (500 30 tablet 11 11/11/2021 mg tabletIndications: mg total) by mouth Prophylaxis, medical every morning before breakfast Indications: Prophylaxis, medical. diazePAM (VALIUM) 5 mg Take 5 mg by mouth 0 07/1609/30/2021 tablet at bedtime as needed. folic acid 1 mg tablet Take 5 tablets (5 100 tablet 1 202109/30/2021 mg total) by mouth daily. furosemide (LASIX) 20 mg Take 2 tablets (40 30 tablet 1 07/202112/10/2021 tablet mg total) by mouth daily. gabapentin (NEURONTIN) Take by mouth 3 0 05/27/19 22 11/26/2021 300 mg capsule (three) times a day. Takes 600 mg in the morning, 600 mg in the afternoon, and 900 mg at bedtime. hydrOXYzine (ATARAX) 25 Take 25-50 mg by 0 202111/26/2021 mg tablet mouth at bedtime as needed (sleep). lactulose (CHRONULAC) 10 Take 20 g by mouth 0 11/11/2021 gram/15 mL solution 3 (three) times a day. Titrate to 3 BM daily; doesn't need to use often LORazepam (ATIVAN) 1 mg Take 1 tablet (1 mg 1 tablet 0 11/11/2021 tabletIndications: total) by mouth Anxiety once for [address] scan once magnesium oxide (MAG-OX) Take 1 tablet (400 60 tablet 1 12/02/2021 400 mg (241.3 mg mg total) by mouth magnesium) tablet 2 (two) times a day before breakfast and dinner. oxyCODONE (ROXICODONE) 5 Take 5 mg by mouth 0 11/11/2021 mg immediate release 3 (three) times a tablet day as needed for pain. promethazine (PHENERGAN) Take 25 mg by mouth 0 11/11/2021 25 mg tablet every 6 (six) hours as needed for nausea. rOPINIRole (REQUIP) 1 mg Take 1 mg by mouth 0 09/30/2021 tablet at bedtime. sodium bicarbonate 650 mg Take 650 mg by 0 09/30/2021 tablet mouth 2 (two) times a day. spironolactone Take 2 tablets (100 30 tablet 1 08/03/2021 0 12/10/2021 (ALDACTONE) 50 mg tablet mg total) by mouth daily. vitamin A 3,000 mcg Take 1 capsule 50 capsule 0 07/21/2021 0 10/08/2021 (10,000 Unit) capsule (3,000 mcg total) by mouth 3 (three) times a week for 50 doses. Vitamin B-1, mononitrate, Take 100 mg by 0 202109/30/2021 100 mg tablet mouth every morning. documented as of this encounter Plan of Treatment Upcoming Encounters Date Type Specialty Care Team Description 01/07/2022 Office Visit [facility] Ranjit Red P.A.-C. [address] [place] [phone] (Wo rk) 01/12/2022 Appointment Laboratory Medicine Matthew Jerome M.B.B.SSuma, Lilian [address] [place] [phone] (Wo rk) 01/12/2022 Appointment Laboratory Medicine Adeline Frazier M.D., Ph.D. [address] [place] [phone] (Wo rk) 01/13/2022 Telemedicine Transplant Joel Tan L.I.C.S.W., M.S. W. [address] [place] [phone] (Wo rk) 01/13/2022 Telemedicine Transplant Matthew Jerome M.B.BSumaSSuma, MCee. [address] [place] [phone] (Wo rk) 01/13/2022 Telemedicine Transplant Adeline Frazier M.D., Ph.D. [address] [place] [phone] (Wo rk) 01/28/2022 Office Visit Gastroenterology and Matthew Jerome, Hepatology VikBSumaSSuma, MJules [address] [place] [phone] (Wo rk) Scheduled Procedures Name Priority Associated Diagnoses Date/Time ESOPHAGOGASTRODUODENOSCOPY Cirrhosis Alc oholic (HCC) Hypertension Portal (HCC) ESOPHAGOGASTRODUODENOSCOPY Cirrhosis Alc oholic (HCC) Ascites Anemia Macrocytic Thrombocytopenia (HC C) Deficiency Coagulation Acquired (HCC) documented as of this encounter Procedures Procedure Name Priority Date/Time Associated Comments Diagnosis DX CHEST AP OR PA RAD - Routine 09/22/2021 3:44 Fatty Liver Results for this AND LATERAL 2 (most inpatients PM CDT Failure Liver procedure are in VIEWS and all (HCC) the results outpatients) Cirrhosis section. Alcoholic (HCC) Preoperative Exa m Ascites Abnormal Liver Function Test documented in this encounter Results DX Chest AP or PA and Lateral 2 Views (09/22/2021 3:44 PM CDT) Anatomical Region Laterality Modality Chest, Thoracic RST LOS, Thoracic ARZ LOS, Thoracic N/A Digital Radiography FLA LOS Specimen (Source) Anatomical Collection Method Collection Time Re ceived Time Location / / Volume Laterality 09/22/2021 3:46 PM CDT Impressions 09/22/2021 3:52 PM CDT Two-view chest negative and unchanged from 07/06/2021. Narrative 09/22/2021 3:52 PM CDT EXAM: DX CHEST AP OR PA AND LATERAL 2 VIEWS Procedure Note Alec Kan M.D. - 09/22/2021For matting of this note might be different from the original. EXAM: DX CHEST AP OR PA AND LATERAL 2 EWS IMPRESSION: Two-view chest negative and unchanged fr om 07/06/2021. Warren Hernández M.D., M.P.H. IMG DIAGNOSTIC IMAGING PROCEDURES documented in this encounter Visit Diagnoses Diagnosis Fatty Liver Failure Liver (HCC) Cirrhosis Alcoholic (HCC) Preoperative Exam Ascites Abnormal Liver Function Test documented in this encounter Care Teams Retirement Actuary Relationship Specialty Start Date End Date Elsewhere, Pcp PCP - General Family Medicine 03/10/20 11/30/21 [facility] [place] lab 08/25/21 Ervin Schroeder MD Referring Provider Family Medicine 03/24/[address] [place] [address] documented as of this encounter
--- OUTSIDE RECORDS SUMMARY | 2021-12-28 23:29 | XMS_ITS | Encounter Summary ---
:1990 Author Organization [facility] Address [address] [place] [address] Care Team Providers Name Role Phone Elsewhere, Pcp Primary Care Provider Unavailable Encounter Details Date Type Department Care Team Description 09/12/2021 Clinical Communication Department of Matthew Jerome Gastroenterology in [place] [place] [phone] Social History Tobacco Use Types Packs/Day Years [...] do you attend gnosticism or Never 2021 rastafarian services? 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 - 09/15/2021 9:47 PM CDT Thanks so much Olga Telephone Encounter - Priscilla Castorena - 09/12/2021 12:02 PM CDT Patient was supposed to have an appointment for PMR CONS PT at [facility]. The appt has been cancelleddue to the provider, Desiree Meza, Only seeing patients after the 20 days from a Positive Covid swab. When the appointment was cancelled, the order was cancelled as well. Therefore, a new order needs ady entered for patient to be seen for Lymphedema and leg swelling. Please advise. documented in this encounter Plan of Treatment Upcoming Encounters Date Type Specialty Care Team Description 01/07/2022 Office Visit [facility] Ranjit Red P.A.-C. [address] [place] [phone] (Wo rk) 01/12/2022 Appointment Laboratory Medicine Matthew Jerome M.B.BSumaSSuma, M.Slick. [address] [place] [phone] (Wo rk) 01/12/2022 Appointment Laboratory Medicine Adeline Frazier M.D., Ph.D. [address] [place] [phone] (Wo rk) 01/13/2022 Telemedicine Transplant Joel Tan L.I.C.SSumaW., M.S. W. [address] [place] [phone] (Wo rk) 01/13/2022 Telemedicine Transplant Matthew Jerome M.B.B.S., M.D. [address] [place] [phone] (Wo rk) 01/13/2022 Telemedicine Transplant Adeline Frazier M.D., Ph.D. [address] [place] [address] [phone] (Wo rk) 01/28/2022 Office Visit Gastroenterology and Matthew Jerome, Hepatology VikBSumaS., M.D. [address] [place] [phone] (Wo rk) Scheduled Procedures Name Priority Associated Diagnoses Date/Time ESOPHAGOGASTRODUODENOSCOPY Cirrhosis Alc oholic (HCC) Hypertension Portal (HCC) ESOPHAGOGASTRODUODENOSCOPY Cirrhosis Alc oholic (HCC) Ascites Anemia Macrocytic Thrombocytopenia (HC C) Deficiency Coagulation Acquired (HCC) documented as of this encounter Visit Diagnoses Diagnosis Edema Leg - Primary documented in this encounter Additional Health Concerns Infection Onset Date Last Indicated Resolved Time COVID19 08/29/2021 08/29/2021 09/18/2021 8:31 AM CDT documented as of this encounter Care Teams Manager Drive Relationship Specialty Start Date End Date Elsewhere, Pcp PCP - General Family Medicine 03/10/20 11/30/21 [facility] [place] lab 08/25/21 Ervin Schroeder MD Referring Provider Family Medicine 03/24/[address] [place] [phone] documented as of this encounter
--- OUTSIDE RECORDS SUMMARY | 2021-12-28 23:29 | XMS_ITS | Encounter Summary ---
:1990 Author Organization [facility] Address [address] [place] [address] Care Team Providers Name Role Phone Elsewhere, Pcp Primary Care Provider Unavailable Encounter Details Date Type Department Care Team Description 09/09/2021 Orders Only Department of Mousa, Matthew Y, Abnormal Angelica er Gastroenterology in [facility] M. Slick. Function Test [address] (Primary Dx) [address] [place] [phone] Social History Tobacco Use Types Packs/Day Years [...] do you attend islam or Never 2021 yazdanism services? Do you belong to any clubs or No 07/17/2021 organizations such as islam groups, unions, fraBroota or athletic groups, or school groups? 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 [address] [place] [phone] (Gwendolyn rahman) 01/12/2022 Appointment Laboratory Medicine Matthew Jerome M.B.BSumaS., M.D. [address] [place] [phone] (Gwendolyn rahman) 01/12/2022 Appointment Laboratory Medicine Adeline Frazier M.D., Ph.D. [address] [place] [phone] (Gwendolyn rahman) 01/13/2022 Telemedicine Transplant Joel Tan L.I.C.S.W., M.S. W. [address] [place] [address] [phone] (Wo rk) 01/13/2022 Telemedicine Transplant Matthew Jerome M.B.B.S., M.D. [address] [place] [phone] (Wo rk) 01/13/2022 Telemedicine Transplant Adeline Frazier M.D., Ph.D. [address] [place] [phone] (Wo rk) 01/28/2022 Office Visit Gastroenterology and Matthew Jerome, Hepatology Tyrell, MCee. [address] [place] [phone] (Gwendolyn rk) Scheduled Procedures Name Priority Associated Diagnoses Date/Time ESOPHAGOGASTRODUODENOSCOPY Cirrhosis Alc oholic (HCC) Hypertension Portal (HCC) ESOPHAGOGASTRODUODENOSCOPY Cirrhosis Alc oholic (HCC) Ascites Anemia Macrocytic Thrombocytopenia (HC C) Deficiency Coagulation Acquired (HCC) documented as of this encounter Results Creatinine with Estimated GFR (09/19/2021 1:32 PM CDT) athologist Signature Creatinine 0.68 0.59 - 09/19/2021 [place] 1.04 mg/dL 4:09 PM CDT eGFR-Black/Afric >90 >=60 09/19/2021 [place] an Omani mL/min/BSA 4:09 PM CDT Comment: ----ADDITIONAL INFORMATION---- Estimated GFR calculated using the 2009 CKD_EPI creatinine equation. eGFR Non-Black/ >90 >=60 mL/min/BSA 09/19/2021 4:09 PM CDT [place] Comment: ----ADDITIONAL INFORMATION---- Estimated GFR calculated using the 2009 CKD_EPI creatinine equation. Specimen Anatomical Collection Method Collection Time Receive d Time (Source) Location / / Volume Laterality Blood (Blood, 09/19/2021 1:32 PM 09/20/19 3:30 Venous) CDT PM CDT Matthew Santillan M.D. LAB BLOOD ADD-ON Performing Organization Address City/State/ZIP Code Phon e Number [facility]- [address] [place] [address] [place] [address] System in [place] [address] documented in this encounter Visit Diagnoses Diagnosis Abnormal Liver Function Test - Primary documented in this encounter Additional Health Concerns Infection Onset Date Last Indicated Resolved Time COVID19 08/29/2021 08/29/2021 09/18/2021 8:31 AM CDT documented as of this encounter Care Teams Tank Refinisher Relationship Specialty Start Date End Date Elsewhere, Pcp PCP - General Family Medicine 03/10/20 11/30/21 [facility] [place] [facility] 08/25/21 Ervin Schroeder MD Referring Provider Family Medicine 03/24/[address] [place] [phone] documented as of this encounter
--- OUTSIDE RECORDS SUMMARY | 2021-12-28 23:29 | XMS_ITS | Encounter Summary ---
:1990 Author Organization [facility] Address [address] [place] [address] Care Team Providers Name Role Phone Elsewhere, Pcp Primary Care Provider Unavailable Reason for Referral Outpatient (Routine) - Closed Specialty Diagnoses / Procedures Referred By Contact Refer red To Contact Diagnoses Cirrhosis Alcoholic (HCC) Abnormal Liver Function Test Ascites Pretransplant Recipient Evaluation Exam Preoperative Exam Warren Hernández [facility] Procedures Echo Transthoracic (TTE) Lilian, M.P.H. [address] [place] [address] Referral ID Status Reason Start Date Expiration Date Visits Requ ested Visits Authorized [id number] Closed 08/31/2021 08/31/2022 1 1 Reason for Visit Outpatient (Routine) - Closed Specialty Diagnoses / Procedures Referred By Contact Refer red To Contact Diagnoses Cirrhosis Alcoholic (HCC) Abnormal Liver Function Test Ascites Pretransplant Recipient Evaluation Exam Preoperative Exam Warren Hernández, [facility] [place] [facility] Procedures Echo Transthoracic (TTE) Lilian, M.P.H. [address] [place] [address] Referral ID Status Reason Start Date Expiration Date Visits Requ ested Visits Authorized [id number] Closed 08/31/2021 08/31/2022 1 1 Encounter Details Date Type Department Care Team Description 09/23/2021 Hospital Department of [place], Cirrhosis Alco holic (HCC); Encounter Cardiovascular Warren Schaefer, Abnormal Live r Function Test; Diseases in [place], Lilian, M.P.H . Ascites; [place] [address] [facility] Pretransplant Recipient Evaluation Exam; [address] [place], [place] [phone] Social History Tobacco Use Types Packs/Day Years [...] do you attend congregational or Never 2021 spiritism services? 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 [address] [place] [address] (Wo rk) 01/12/2022 Appointment Laboratory Medicine Matthew Jerome M.B.B.S., Lilian [address] [place] [phone] (Wo rk) 01/12/2022 Appointment Laboratory Medicine Adeilne Frazier M.D., Ph.D. [address] [place] [phone] (Wo rk) 01/13/2022 Telemedicine Transplant Joel Tan L.I.C.S.W., M.S. W. [address] [place] [address] [phone] (Wo rk) 01/13/2022 Telemedicine Transplant Matthew Jerome M.B.B.S., MJules [address] [place] [phone] (Wo rk) 01/13/2022 Telemedicine Transplant Adeline Frazier M.D., Ph.D. [address] [place] [phone] (Wo rk) 01/28/2022 Office Visit Gastroenterology and Matthew Jerome, Hepatology Tyrell, MJules [address] [place] [phone] (Wo rk) Scheduled Procedures Name Priority Associated Diagnoses Date/Time ESOPHAGOGASTRODUODENOSCOPY Cirrhosis Alc oholic (HCC) Hypertension Portal (HCC) ESOPHAGOGASTRODUODENOSCOPY Cirrhosis Alc oholic (HCC) Ascites Anemia Macrocytic Thrombocytopenia (HC C) Deficiency Coagulation Acquired (HCC) documented as of this encounter Procedures Procedure Name Priority Date/Time Associated Diagnosis Comme nts (TTE) 2D ECHO Routine 09/23/2021 4:39 PM Cirrhosis Alcoholic R esults for this DOPPLER COLOR AND CDT (HCC) procedure are in CONTRAST Abnormal Liver the results Function Test section. Ascites Pretransplant Recipient Evaluation Exam Preoperative Exam documented in this encounter Results (TTE) 2D ECHO DOPPLER COLOR AND CONTRAST (09/23/2021 4:39 PM CDT) [facility] Method Time Signature Ejection Fraction 66 MC CV EIMS Mid-Ascending Aorta 26 MC CV EIMS LV Mass Index 69 MC CV EIMS LV End-Diastolic 49 MC CV EIMS Diameter LV End-Systolic 30 MC CV EIMS Diameter MV E Velocity 0.90 MC CV EIMS MV A Velocity 0.80 MC CV EIMS MV E/A 1.13 MC CV EIMS MV e' Velocity 0.12 MC CV EIMS Medial MV e' Velocity 0.14 MC CV EIMS Lateral MV E/e' Medial 7.50 MC CV EIMS MV E/e' Lateral 6.40 MC CV EIMS Left ventricular 66 MC CV EIMS stroke volume index Cardiac Output 7.71 MC CV EIMS Cardiac Index 4.85 MC CV EIMS LV Interventricular 6 MC CV EIMS Septal Wall Thickness LV Posterior Wall 8 MC CV EIMS Thickness LV Relative Wall 33 MC CV EIMS Thickness RV 4-Chamber Basal 37 MC CV EIMS Diameter RV 4-Chamber Mid 32 MC CV EIMS Diameter TAPSE 30 MC CV EIMS Tricuspid Annular S? 0.16 MC CV EIMS TR Vmax 2.21 MC CV EIMS RA Pressure 10 MC CV EIMS RV Systolic Pressure 30 MC CV EIM S AV mean gradient 7 MC CV EIMS Aortic valve area 2.40 MC CV EIMS Aortic Valve 0.69 MC CV EIMS Dimensionless Index LA Volume Index 42 MC CV EIMS Aortic Valve 1.80 MC CV EIMS Systolic Peak Velocity Anatomical Region Laterality Modality Echocardiography Specimen (Source) Anatomical Collection Method Collection Time Re ceived Time Location / / Volume Laterality 09/23/2021 2:33 PM CDT Impressions 09/23/2021 10:27 PM CDT Agitated saline contrast administered. Anemia, thyrotoxicosis, or another high output state could contribute to the increased Doppler velocities. LEFT VENTRICLE:Normal left ventricular c hamber size. Normal left ventricular wall thickness. Calculated 2-D linear left ventricular ejection fraction 66%. No regional wall motion abnormalities. Normal left ventricular diastolic function. RIGHT VENTRICLE:Normal right ventricular chamber size. Normal right ventricular systolic function. Estimated right ventricular systolic pressure 30 mmHg (systolic blood pressure 94 mmHg). ATRIA:Moderately enlarged left atrial si ze. Left atrial volume index 42 ml/m2. Mild-moderately enlarged right atrial size. CARDIAC VALVES:Trileaflet aortic valve. Normal aortic valve. No aortic valve regurgitation. Normal mitral valve. Trivial mitral valve regurgitation. Normal pulmonary valve. Normal pulmonary valve systolic velocities. Trivial pulmonary valve regurgitation. Normal tricuspid valve. T rivial tricuspid valve regurgitation. OTHER ECHO FINDINGS:Normal inferior vena cava size with reduced inspiratory collapse (<50%). Normal mid ascending aorta diameter of 26 mm. Abdominal aorta incompletely visualized. Normal abdominal aorta Doppler flow pattern. No intracardiac mass or thrombus, but the left atrial appendage cannot be visualized adequately with transthoracic echo to exclude thrombus in this location. No ??pericardial effusion. For the complete report, see the Order-L [employer] Documents. Narrative 09/23/2021 10:27 PM CDT For the complete report, see the Order-Level Documents. Final Impressions 1. Normal left ventricular chamber size, no regional wall motion abnormalities, calculated 2-D linear ejection fraction 66%. 2. Normal left ventricular diastolic fun ction. 3. Normal right ventricular chamber size , normal systolic function, estimated right ventricular systolic pressure 30 mmHg (systolic blood pressure 94 mmHg). 4. Moderate-severe bi-atrial enlargement . Left atrial volume index 42 ml/m?. 5. Normal inferior vena cava size with r educed inspiratory collapse (<50%). 6. No hemodynamically significant valvul ar heart disease. 7. Positive for atrial level shunt by ag itated saline contrast injection. 8. Patent foramen ovale with right-to-le ft shunt , 20 or greater bubbles seen in the left-sided chambers. 9. No ??pericardial effusion. 10. Compared to the report of 03/19/2021 no significant change has occurred. Side by side comparison of images performed. Procedure Note Foster Luna M.B., B.Ch. - 2021 For the complete report, see the Order-L [employer] Documents. Final Impressions 1. Normal left ventricular chamber size, no regional wall motion abnormalities, calculated 2-D linear ejection fraction 66%. 2. Normal left ventricular diastolic fun ction. 3. Normal right ventricular chamber size , normal systolic function, estimated right ventricular systolic pressure 30 mmHg (systolic blood pressure 94 mmHg). 4. Moderate-severe bi-atrial enlargement . Left atrial volume index 42 ml/m?. 5. Normal inferior vena cava size with r educed inspiratory collapse (<50%). 6. No hemodynamically significant valvul ar heart disease. 7. Positive for atrial level shunt by ag itated saline contrast injection. 8. Patent foramen ovale with right-to-le ft shunt , 20 or greater bubbles seen in the left-sided chambers. 9. No pericardial effusion. 10. Compared to the report of 03/19/2021 no significant change has occurred. Side by side comparison of images performed. Findings Agitated saline contrast administered. A nemia, thyrotoxicosis, or another high output state could contribute to the increased Doppler velocities. LEFT VENTRICLE:Normal left ventricular c hamber size. Normal left ventricular wall thickness. Calculated 2-D linear left ventricular ejection fraction 66%. No regional wall motion abnormalities. Normal left ventricular diastolic function. RIGHT VENTRICLE:Normal right ventricular chamber size. Normal right ventricular systolic function. Estimated right ventricular systolic pressure 30 mmHg (systolic blood pressure 94 mmHg). ATRIA:Moderately enlarged left atrial si ze. Left atrial volume index 42 ml/m2. Mild-moderately enlarged right atrial size. CARDIAC VALVES:Trileaflet aortic valve. Normal aortic valve. No aortic valve regurgitation. Normal mitral valve. Trivial mitral valve regurgitation. Normal pulmonary valve. Normal pulmonary valve systolic velocities. Trivial pulmonary valve regu rgitation. Normal tricuspid valve. Trivial tricuspid valve regurgitation. OTHER ECHO FINDINGS:Normal inferior vena cava size with reduced inspiratory collapse (<50%). Normal mid ascending aorta diameter of 26 mm. Abdominal aorta incompletely visualized. Normal abdominal aorta Doppler flow pattern. No intracardiac mass or th rombus, but the left atrial appendage cannot be visualized adequately with transthoracic echo to exclude thrombus in this location. No pericardial effusion. For the complete report, see the Order-L evel Documents. Warren Hernández M.D., M.P.H. CV ECHO PROCEDURES documented in this encounter Visit Diagnoses Diagnosis Cirrhosis Alcoholic (HCC) Abnormal Liver Function Test Ascites Pretransplant Recipient Evaluation Exam Preoperative Exam documented in this encounter Administered Medications Inactive Administered Medications - up to 3 most recent administrations Medication Order MAR Action Action Date Dose Rate Site sodium chloride 0.9 % injection 8 mL Given 09/23/2021 4:40 PM CDT 8 mL 8 mL, intravenous, As needed, line care, for agitated saline (bubble) studies, Starting on Wed09/23/21 at 1640, See protocol documented in this encounter Care Teams University Controller Relationship Specialty Start Date End Date Elsewhere, Pcp PCP - General Family Medicine 03/10/20 11/30/21 [facility] [place] [facility] 08/25/21 Ervin Schroeder MD Referring Provider Family Medicine 03/24/[address] [place] [phone] documented as of this encounter
--- OUTSIDE RECORDS SUMMARY | 2021-12-28 23:29 | XMS_ITS | Encounter Summary ---
:1990 Author Organization [facility] Address [address] [place] [address] Care Team Providers Name Role Phone Elsewhere, Pcp Primary Care Provider Unavailable Reason for Visit Reason Comments Appointment PMR 09/23 Phone Contact PMR PT Encounter Details Date Type Department Care Team Description 09/14/2021 Clinical Ramirez Barajas, Camron coreas (PMR Communication Center for [facility], 09/23); Phone Transplantation and Lilian, Ph.D. Contact (PMR PT) Clinical [facility] [address] in [facility] [address] [facility] [phone] Social History Tobacco Use Types Packs/Day Years [...] or relatives? How often do you attend adventism or Never 2021 alevism services? Do you belong to any clubs or No 07/17/2021 organizations such as adventism groups, unions, fraSelenokhod or athletic groups, or school groups? 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 None of the times available worked week of 09/22. 09/23 appt was to early pt stated and needed to be afternoon, and nothing was available afternoon. Telephone Encounter - Adry Peterson - 09/14/2021 11:28 AM CDT EVAL documented in this encounter Plan of Treatment Upcoming Encounters Date Type Specialty Care Team Description 01/07/2022 Office Visit [facility] Ranjit Red P.A.-C. [address] [place] [phone] (Wo rk) 01/12/2022 Appointment Laboratory Medicine Matthew Jerome M.B.B.SSuma, MJules [address] [place] [phone] (Wo rk) 01/12/2022 Appointment Laboratory Medicine Adeline Frazier M.D., Ph.D. [address] [place] [phone] (Wo rk) 01/13/2022 Telemedicine Transplant Joel Tan L.I.C.SSumaW., M.S. W. [address] [place] [phone] (Wo rk) 01/13/2022 Telemedicine Transplant Matthew Jerome M.B.B.S., M.D. [address] [place] [phone] (Wo rk) 01/13/2022 Telemedicine Transplant Adeline Frazier M.D., Ph.D. [address] [place] [phone] (Wo rk) 01/28/2022 Office Visit Gastroenterology and Matthew Jerome, Hepatology FredySSuma, MJules [address] [place] [phone] (Wo rk) Scheduled Procedures Name Priority Associated [...] documented as of this encounter Care Teams Bank Worker Relationship Specialty Start Date End Date Elsewhere, Pcp PCP - General Family Medicine 03/10/20 11/30/21 [facility]- [facility] 08/25/21 Ervin Schroeder MD Referring Provider Family Medicine 03/24/[address] [place] [phone] documented as of this encounter
--- OUTSIDE RECORDS SUMMARY | 2021-12-28 23:29 | XMS_ITS | Encounter Summary ---
:1990 Author Organization [facility] Address [address] [place] [address] Care Team Providers Name Role Phone Elsewhere, Pcp Primary Care Provider Unavailable Reason for Visit Reason Onset Date Comments [facility] Financial 09/26/2021 Encounter Details Date Type Department Care Team Description 09/26/2021 Clinical Communication Ramirez Amador, [facility] [place], Transplantation and C.M.A. Clinical Regeneration in [phone] [place], [place] (Work) [address] [phone] Social History Tobacco Use Types Packs/Day [...] do you attend temple or Never 2021 moravian services? 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 - 09/26/2021 10:47 AM CDT Recipient Pre-Transplant Review Document: Organ: Kidney ____ Liver _X___ Heart ____ Lung ____ Pancreas ____ BMT ____ Insurance Carrier: [employer] 2B Demographic Information: __X__ Confirmed information is up to date, including address and insurance. Insurance Benefits: __X__ Confirmed understanding of the authorization and referral process, including contracted or non-contracted, including the Prior Written Authorization process, and financial implications based on prior authorization determination. __X__ Confirmed understanding of differences in general medical insurance and transplant benefits. Confirmed number of eligible evaluations under patients plan. __X__ Confirmed patient's coordination of benefits: deductible, co-insurance, co-pay, or for-hz-watbsc maximum. __X__ Patient understands that this is a general quote of coverage for benefits at the time of this evaluation and is not a guarantee of payment. All claims are subject to review at the time they are received in accordance with plan language and eligibility. __X__ Confirmed understanding of services covered under the contract and length of coverage. Insurance incompatibility with services available outside of transplant center for non-participating or non-contracted insurance carriers was discussed. __X__ Patient understands that this is a general quote of coverage for benefits at the time of this evaluation and is not a guarantee of payment. All claims are subject to review at the time they are received in accordance with plan language and eligibility. __N/A__ Confirmed COBRA insurance coverage and obtained all relevant information including start andend dates for coverage (HR department, eligible dates, premiums, etc.). __X__ Confirmed understanding of usual and customary charges for services not related to transplant services, including out of network information for services considered routine and/or preventative. _X___ Confirmed understanding that patient should contact their insurance provider regarding policy and coverage, including policy limitations and exclusions of coverage following transplantation and any impact for coverage and/or impacts to their maximum lifetime benefits following transplant. __N/A__ Confirmed COBRA insurance coverage and obtained all relevant information including start andend dates for coverage (HR department, eligible dates, premiums, ESRD Medicare requirements). _X___ Confirmed patient understands [facility] require prior authorization and they need to contact Transplant Financial Services, so Transplant Financial Services can obtain appropriate approvals. Provided patient with business card. Medicare Benefits: _N/A___ Patient states they are not eligible for Medicare or social security benefits due to why is patient not eligible? _N/A__ Confirmed patient can obtain Medicare due to ESRD. _N/A__ Financial worker also provided verbal education regarding End Stage Renal Disease Medicare. We reviewed the benefits of hospital Part A, medical Part B, and 80% immunosuppressant coverage through Part B when Medicare effective at the time of transplant. Patient understands there would be a monthly premium for Part B. __N/A__ There is a 30-month coordination of benefits with any employer group health plan, where the employer plan would pay first and Medicare would pay second. Medicare ends after 36 months unless thepatient is greater than age 65 or permanently disabled. _N/A___ Patient understands that by enrolling in Medicare Part A at minimum now, s/he will be eligible for immunosuppressant coverage from Part B at age 65 or if deemed disabled later. __N/A__ Confirmed patient has Medicare due to age, disability, ESRD. __N/A__ Patient understands coordination of benefits with current coverage and to contact the appropriate libertarian with anticipated changes. Estimate of Services: _X___ Confirmed understanding of potential financial responsibilities and transplant anticipated expenses. _X___ Transplant care and post-transplant medications are life-long (general information; patient can obtain list of immunosuppressants (Medications) from the nurse coordinator. __X__ Discussed out of pocket expenses for follow-up care, including testing, routine care, and/or complications from surgery. _X___ Handed patient Financial Assistance Policy. ([id number]) PATIENT EDUCATION Education Material: __X__ Provided patient with an educational guide (Planning for Your Transplant: A Financial Guide AS83587) to assist in outlining financial responsibilities related to transplant services and transplant care; highlighted fundraising and resource contacts in educational packet. Education Outcome and miscellaneous concerns: _X___ Reviewed with patient Transplant Financial Services contact information to communicate any future insurance questions, changes or updates. Confirmed per review patient was able to teach back and verbalized understanding., patient needs little repetition, patient did not retain educational information, patient needs additional reinforcement of education provided. _X___ Advised recipient to notify [facility] with any insurance updates or changes; failure to do so may impede transplant eligibility. __X__ Discussed financial concerns related to ability to pay for services and post-transplant care. Including, Financial Assistance policy if financial hardship was identified. __X__ Provided Transplant Financial business card with our contact phone number of [phone] if patient were to have additional questions. __X__ Annual benefit review will be done to verify active coverage with patient's insurance going forward. PATIENT TEACH BACK X [facility] X May have travel and lodging funds available through [facility] X Cost of transplant X Reviewed to call Transplant Financial Coordinators with questions documented in this encounter Plan of Treatment Upcoming Encounters Date Type Specialty Care Team Description 01/07/2022 Office Visit [facility] Internal Medicine Ranjit Red P.A.-C. [address] [facility] [place] [address] (Wo rk) 01/12/2022 Appointment Laboratory Medicine Matthew Jerome M.B.B.SSuma, Lilian [address] [place] [phone] (Wo rk) 01/12/2022 Appointment Laboratory Medicine Adeline Frazier M.D., Ph.D. [address] [place] [phone] (Wo rk) 01/13/2022 Telemedicine Transplant Joel Tan L.I.C.S.W., M.S. W. [address] [place] [phone] (Wo rk) 01/13/2022 Telemedicine Transplant Matthew Jerome M.B.B.S., M.D. [address] [place] [phone] (Wo rk) 01/13/2022 Telemedicine Transplant Adeline Frazier M.D., Ph.D. [address] [place] [phone] (Wo rk) 01/28/2022 Office Visit Gastroenterology and Matthew Jerome, Hepatology FredySSuma, MJules [address] [place] [phone] (Wo rk) Scheduled Procedures Name Priority Associated Diagnoses Date/Time ESOPHAGOGASTRODUODENOSCOPY Cirrhosis Alc oholic (HCC) Hypertension Portal (HCC) ESOPHAGOGASTRODUODENOSCOPY Cirrhosis Alc oholic (HCC) Ascites Anemia Macrocytic Thrombocytopenia (HC C) Deficiency Coagulation Acquired (HCC) documented as of this encounter Visit Diagnoses Not on filedocumented in this encounter Care Teams Power Barker Operator Relationship Specialty Start Date End Date Elsewhere, Pcp PCP - General Family Medicine 03/10/20 11/30/21 [facility]- [facility] 08/25/21 Ervin Schroeder MD Referring Provider Family Medicine 03/24/[address] [place] [phone] documented as of this encounter
--- OUTSIDE RECORDS SUMMARY | 2021-12-28 23:29 | XMS_ITS | Encounter Summary ---
:1990 Author Organization [facility] Address [address] [place] [address] Care Team Providers Name Role Phone Elsewhere, Pcp Primary Care Provider Unavailable Reason for Visit Reason Comments Leg Pain Encounter Details Date Type Department Care Team Description 09/28/2021 Nurse Triage Department of [facility] Naila Walters R.N. Leg Pain Medicine, [facility], in [address] [place] [address] [place] [phone] [place] [address] [phone] Social History Tobacco Use Types Packs/Day Years [...] do you attend pentecostal or Never 2021 faith services? Do you [...] or the highest technical, or vocational p CerRxram degree you have received? 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 - 09/28/2021 4:13 PM CDT Chief Complaint / Reason for Call Patient is a 31 y.o. female calling regarding Leg Pain and swelling. Assessment Concern: Patient reports increase in her bilateral lower extremity edema and leg pain. She states her leg pain is around 6/10 at baseline and is now 8/10 although she has not taken any pain medication.She denies chest pain, dyspnea, headache, or any other associated symptoms. Home cares tried: Leg wraps Calling to request: Advice The recommended disposition is See a health care provider within 4 hours. Encouraged to present to local ED. Reason for Disposition ??? SEVERE leg swelling (e.g., swelling extends above knee, entire leg is swollen, weeping fluid) Protocols used: LEG SWELLING AND [id number] Care Advice Patient/Caregiver understands and will follow care advice?: Yes, able to teach back CALL BACK IF: * You become worse. documented in this encounter Plan of Treatment Upcoming Encounters Date Type Specialty Care Team Description 01/07/2022 Office Visit [facility] Ranjit Red P.A.-C. [address] [place] [phone] (Wo rk) 01/12/2022 Appointment Laboratory Medicine Matthew Jerome M.B.BSumaSSuma, MJules [address] [place] [phone] (Wo rk) 01/12/2022 Appointment Laboratory Medicine Adeline Frazier M.D., Ph.D. [address] [place] [phone] (Wo rk) 01/13/2022 Telemedicine Transplant Joel Tan L.I.C.SSumaW., M.S. W. [address] [place] [phone] (Wo rk) 01/13/2022 Telemedicine Transplant Matthew Jerome M.B.B.S., M.D. [address] [place] [phone] (Wo rk) 01/13/2022 Telemedicine Transplant Adeline Frazier M.D., Ph.D. [address] [place] [phone] (Wo rk) 01/28/2022 Office Visit Gastroenterology and Matthew Jerome, Hepatology VikBSumaSSuma, M.D. [address] [place] [phone] (Wo rk) Scheduled Procedures Name Priority Associated Diagnoses Date/Time ESOPHAGOGASTRODUODENOSCOPY Cirrhosis Alc oholic (HCC) Hypertension Portal (HCC) ESOPHAGOGASTRODUODENOSCOPY Cirrhosis Alc oholic (HCC) Ascites Anemia Macrocytic Thrombocytopenia (HC C) Deficiency Coagulation Acquired (HCC) documented as of this encounter Visit Diagnoses Not on filedocumented in this encounter Care Teams Digital Court Reporter Relationship Specialty Start Date End Date Elsewhere, Pcp PCP - General Family Medicine 03/10/20 11/30/21 [facility] 08/25/21 Ervin Schroeder MD Referring Provider Family Medicine 03/24/[address] [place] [phone] documented as of this encounter
--- OUTSIDE RECORDS SUMMARY | 2021-12-28 23:29 | XMS_ITS | Encounter Summary ---
:1990 Author Organization [facility] Address [address] [place] [address] Care Team Providers Name Role Phone Elsewhere, Pcp Primary Care Provider Unavailable Reason for Referral Physical Therapy (Routine) - Pending Review Specialty Diagnoses / Procedures Referred By Contact Refer red To Contact Diagnoses Edema Leg Matthew Jerome M.BSumaBSumaSSuma, [facility] Procedures PT Ongoing treatment .DSuma [address] [place] [phone] Referral ID Status Reason Start Date Expiration Date Visits V isits Requested Authorized [id number] Pending 09/24/2021 09/24/2022 99 99 Review Reason for Visit Physical Therapy (Routine) - Closed Specialty Diagnoses / Procedures Referred By Contact Refer red To Contact Diagnoses Edema Leg Matthew Jerome M.BSumaB.SSuma, [facility] Procedures PT Evaluate and treat M.D. [address] [place] [phone] Referral ID Status Reason Start Date Expiration Date Visits Requ ested Visits Authorized [id number] Closed 09/16/2021 09/16/2022 1 1 Encounter Details Date Type Department Care Team Description 09/24/2021 Comprehensive Visit Department of Physical Matthew Jerome M.B.B.S., Lilian [address] [place] [phone] Edema Leg Medicine and Jessy Haywood M.S., P.T., [facility] [address] [place] [address] Rehabilitation in [place], [place] [address] [place] [phone] Social History Tobacco Use Types Packs/Day Years [...] do you attend lutheran or Never 2021 christianity services? 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 Edema Leg Reason for Referral: Insurance: Payor: [place] [employer] / Plan: [facility] BLUE PLUS HMO / Product Type: MedicaidHMO / Total Visit Count: 1 Visit Count since last G-Codes: 1 PERTINENT MEDICAL / SURGICAL HISTORY: Past Medical History: Diagnosis Date ??? Ascites ??? Cirrhosis Alcoholic (HCC) ??? Cirrhosis Of Liver NOS ??? Jaundice Past Surgical History: Procedure Laterality Date ??? ELBOW SURGERY Left 2018 per patient ??? TENDON REPAIR Left left foot per patient Precautions/Restrictions: Portal hypertension with alcoholic cirrhosis Contact monitoring: PPE used during therapy: Therapist was wearing the following PPE throughout entire session: surgicalmask and eye protection Patient was wearing a mask during therapy session: yes SUBJECTIVE: Patient is a pleasant 31 y.o. female presenting to Physical Therapy for bilateral lower extremity lymphedema. Her symptoms consist of heavy painful lower extremity in which she gets significant skin tightness. The patient reports that the swelling does affect the movement of her limbs. Patient reports some days it is harder for her to walk due to the swelling. The patient reports that the swelling affects how she socializes with others. The patient reports that she has to rely on help for others because of the swelling and it does get her down. The patient reports that the swelling does affect her ability to perform self-care activities including routine home related activities. The patient reports that it does affect her leisure activities. The swelling does affect the fit of her clothing and itdoes affect her sleep. Overall she reports her status remains the same. The patient reports pain 7-8/10 in the location of bilateral lower extremity from the tip of the toes to the knee region. The patient reports she does have sensation that is altered/diminished in the knee and thigh region due to neuropathy. The patient reports that today the swelling is worse than normal. The patient???s response to elevation is positive although it does not completely remove the swelling present. Patient has required Minimal Assistance assistance with ADLs and IADLs. Patient???s goal for therapy is have assistance getting comfortable compression. Falls Risk: Patient currently is a fall risk due to gait deviations Red Flags: (???+?? indicates positive finding, ???-???indicates negative finding) Red Flag +/- Comments Weakness + Not acute Increased size of lymph node - Lancinating pain - Acute swelling - Recent infection - Numbness - Mass present - Skin lesions - Collateral veins - DVT - OBJECTIVE: Palpation: Enlarged nodes: None noted Observation: Location: Swelling noted from toes to patellar tendon Anatomical landmarks: Mildly diminished due to swelling present Sensation:Intact Integumentary: Dryness: within normal limits Fibrosis: present Skin Temperature: Intact Color: within normal limits Wounds: absent Odor: absent Papillomas: absent Stemmer Sign: positive bilateral Capillary Refill: Intact Range of Motion/Manual Muscle Testing: Motion Right Comments Left Comments Ankle Dorsiflexion /5 /5 Knee Extension /5 /5 Knee Flexion /5 /5 Hip Flexion /5 /5 Standard testing positions unless otherwise noted, * denotes pain. If left blank, assume not tested. Joint Screen: Ankle, knee, and hip gross ROM WFL bilaterally Point of reference Circumferential measurement for Right Leg Circumferential measurement for Left Leg MTP Lateral Malleolus=0 16 17 Largest calf measurement 27 28 Lymph total cm^2 Lymph total L The Lymphedema Life Impact Score was 59, indicating a 82% impairment level. The Lymphedema Life Impact Scale is a validated instrument that measures the physical, functional, and psychosocial concerns pertinent to patients with extremity lymphedema. The Scale???s questionnaire is administered to patients to gauge impairments, activity limitations, and participation restrictions resulting from their lymphedema. Interventions provided 09/24/2021: -- Evaluation completed. The patient was educated regarding evaluative findings, diagnosis, prognosis, potential risks and benefits of rehabilitation interventions. A collaborative effort was used to establish goals and plan of care, which was agreed upon by patient. The patient was informed of the right to make decisions regarding their care, including refusal of examination, treatment, or selectionof therapy services from another provider if desired. The treatment plan may be progressed or modified based upon the patient's response to treatment. - Educated patient on lymphedema causes, risk factors, signs/symptoms and treatment approach utilizing patient education handout A Guide to Lymphedema (YZ5689), as well as signs and symptoms of cellulitis utilizing patient education handout Cellulitis (SM8172). - Instructed exercises to reduce lymphedema. - Discussed compression garments. - Educated on Complete Decongestive Therapy. The patient requested a home exercise program for aquatics. This was provided. The physical therapist cautioned the patient about developing increased lymphatic load when in a warm whirlpool environment. -the physical therapist assisted the patient with obtaining compression garments for the lower extremity. The patient obtained a foot and calf neoprene Velcro garment for bilateral lower extremity. Thephysical therapist gave instructions on wear and care of the garments. The physical therapist instructed to start wearing the garment during the day than if that was going well at in the nighttime wear. The physical therapist instructed the patient should be performing skin checks every 2 hours to make sure she does not develop pressure areas. The physical therapist instructed the patient to loosen atightening the garment according to pressure areas. - Attendance policy was discussed with patient. Patient verbalized and agrees to no show policy expectations including discharge from therapy if attendance expectations are not met. Initial Home Exercise Program: Exercises to Reduce Lower Extremity Swelling-[facility] 4482 Treatment Response: The patient reported that she thought the garments were comfortable. The patientreported she would try the exercises in the pool. The patient reported no difficulties understandingthe exercises to reduce the lower extremity lymphedema. The patient reported she may want to come back for 1 more visit to see if she had any further issues or questions. The physical therapist instructed the patient that she could also call the therapist if she had any further questions. Plan for next session: Evaluate the efficacy of the compression garments on the patient's lower extremity. Answer any further questions. ASSESSMENT: Catia Carias is a 31 y.o. y/o female presenting with diagnosis of bilateral lower extremity lymphedema. Problem list includes: edema/lymphedema, decreased mobility, pain, impaired knowledge of condition, range of motion and/or strength deficits, decreased activity tolerance, muscle spasms and/or tightness. The patient reports difficulties performing functional and recreational activities. Comorbidities: Portal hyper tension, coagulation deficiency, thrombocytopenia, and patent foramen ovale, altered mental status, acute respiratory failure, macrocytic anemia, long QT syndrome, hepatic failure, pancreatitis, behavioral and emotional disorder, alcohol use, anxiety disorder, cannabis use Personal Factors: Sedentary lifestyle The patient reported that it would be difficult for her to get to physical therapy due to lifting a ways away as well as having significant medical appointments in other facilities. The patient requested to go right to the maintenance phase the complete decongestive therapy and not go through the reduc tion phase. The patient reported that the compression garments were comfortable at the end of the session. The physical therapist instructed the patient that if she did not obtain a reduction on her own with the garments that she could always come back into the clinic and we could perform a formal reduction at that time. Patient currently displays a stable clinical presentation. Due to these factors, clinical decision making is considered of low complexity. These functional limitations and problem list require the specialized knowledge and skill of a therapist to meet expected outcomes. Patient has excellent potential to meet the expected outcomes in a reasonable period of time. Thank you for this referral. GOALS: In 1 visit the patient will be independent with a home exercise program. In 1 visit the patient will be able to sergio and doff compression garments independently. In 8 weeks the patient will improve score on the Lymphedema Life Impact Scale by 8 points demonstrating improvement in physical/functional abilities and psychosocial effects. PLAN: Frequency/Duration: 1 to 3 times a week for 8 weeks Plan of Care End Date: 11/19/2021 Therapeutic interventions, skilled training and instruction will include: - Complete Decongestive Therapy (CDT) which includes manual lymphatic drainage (MLD), compression bandaging, exercise, and skin care. - Therapeutic exercise/activities, self care/home management, and manual therapy. By co-signing this note, the provider certifies the therapy being provided to this patient is reasonable and necessary for the diagnosis or treatment of this patient. Time Spent with Patient 90 min Evaluations PT Eval - Low Complexity: 60 min Therapeutic Interventions Home Management Training (min): 30 min Time Tracking Total Timed Units (min): 30 min Total Treatment Time (min): 90 min Electronically signed by: Jessy Haywood M.S., PSophie, MARRY 09/24/21 2:38 PM CDT documented in this encounter Plan of Treatment Upcoming Encounters Date Type Specialty Care Team Description 01/07/2022 Office Visit [facility] Ranjit Red P.A.-C. [address] [place] [phone] (Wo rk) 01/12/2022 Appointment Laboratory Medicine Matthew Jerome M.B.B.S., M.D. [address] [place] [phone] (Wo rk) 01/12/2022 Appointment Laboratory Medicine Adeline Frazier M.D., Ph.D. [address] [place] [phone] (Wo rk) 01/13/2022 Telemedicine Transplant Joel Tan L.I.C.SSumaW., M.S. W. [address] [place] [address] [phone] (Wo rk) 01/13/2022 Telemedicine Transplant Matthew Jerome M.B.B.S., M.D. [address] [place] [phone] (Wo rk) 01/13/2022 Telemedicine Transplant Adeline Frazier M.D., Ph.D. 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
--- OUTSIDE RECORDS SUMMARY | 2021-12-28 23:29 | XMS_ITS | Encounter Summary ---
:1990 Author Organization [facility] Address [address] [place] [address] Care Team Providers Name Role Phone Elsewhere, Pcp Primary Care Provider Unavailable Encounter Details Date Type Department Care Team Description 09/30/2021 Lab Department of Laboratory Alec Hernández Cirrhosis Alcoholic (HCC); Medicine and PathologySilvano M.D., M.P.H. Abnormal Liver Function Test; [place] [address] [place] [address] Ascites; [place] [address] Pretransplant Recipient Evaluation Exam; [address] [place] [address] [place] [phone] Social History Tobacco Use Types Packs/Day Years [...] or relatives? How often do you attend confucianist or Never 2021 islam services? Do you belong to any clubs or No 07/17/2021 organizations such as confucianist groups, unions, [employer] or athletic groups, or school groups? How [...] or the highest technical, or vocational p [facility] degree you have received? 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 - 10/03/2021 3:32 PM CDT I reviewed the attached results. Urinalysis is negative. Staph epidermidis is likely skin contamination. documented in this encounter Plan of Treatment Upcoming Encounters Date Type Specialty Care Team Description 01/07/2022 Office Visit Community Internal Medicine Ranjit Red P.A.-C. [address] [place] [address] [place] [phone] (Wo rk) 01/12/2022 Appointment Laboratory Medicine Matthew Jerome M.B.B.S., MCee. [address] [place] [phone] (Wo rk) 01/12/2022 Appointment Laboratory Medicine Adeline Frazier M.D., Ph.D. [address] [place] [address] [phone] (Wo rk) 01/13/2022 Telemedicine Transplant Joel Tan L.I.C.S.W., M.S. W. [address] [place] [phone] (Wo rk) 01/13/2022 Telemedicine Transplant Matthew Jerome M.B.B.S., Callie. [address] [place] [phone] (Gwendolyn rk) 01/13/2022 Telemedicine Transplant Adeline Frazier M.D., Ph.D. [address] [place] [phone] (Gwendolyn rk) 01/28/2022 Office Visit Gastroenterology and Matthew Jerome, Hepatology Tyrell, MJules [address] [place] [phone] (Gwendolyn rk) Scheduled Procedures Name Priority Associated Diagnoses Date/Time ESOPHAGOGASTRODUODENOSCOPY Cirrhosis Alc oholic (HCC) Hypertension Portal (HCC) ESOPHAGOGASTRODUODENOSCOPY Cirrhosis Alc oholic (HCC) Ascites Anemia Macrocytic Thrombocytopenia (HC C) Deficiency Coagulation Acquired (HCC) documented as of this encounter Procedures Procedure Name Priority Date/Time Associated Comments Diagnosis DE OSMOLALITY ASSAY Routine 09/30/2021 8:23 AM Re sults for this URINE CDT procedure are i n the results section. DIPSTICK, U Routine 09/30/2021 8:23 AM Results f or this CDT procedure are i n the results section. PH, RANDOM, U Routine 09/30/2021 8:23 AM Results for this CDT procedure are i n the results section. MICROSCOPIC MANUAL Routine 09/30/2021 8:23 AM Res ults for this CDT procedure are i n the results section. BACTERIAL CULTURE, Routine 09/30/2021 8:23 AM Cirrhosis Alcoho lic Results for this AEROBIC + SUSC, URINE CDT (HCC) procedure are in Abnormal Liver the results Function Test section. Ascites Pretransplant Recipient Evaluation Exam Preoperative Exam ETHYL GLUCURONIDE Routine 09/30/2021 8:23 AM Cirrhosis Alcohol ic Results for this SCRN W/REFLEX, U CDT (HCC) procedure are in Abnormal Liver the results Function Test section. Ascites Pretransplant Recipient Evaluation Exam Preoperative Exam CONFIRMED DRUG ABUSE Routine 09/30/2021 8:23 AM Cirrhosis Alco holic Results for this PANEL 9, U CDT (HCC) procedure are in Abnormal Liver the results Function Test section. Ascites Pretransplant Recipient Evaluation Exam Preoperative Exam URINALYSIS WITH Routine 09/30/2021 8:23 AM Cirrhosis Alcoholic Results for this MICROSCOPIC CDT (HCC) procedure are in Abnormal Liver the results Function Test section. Ascites Pretransplant Recipient Evaluation Exam Preoperative Exam documented in this encounter Results (ABNORMAL) Dipstick, Urine (09/30/2021 8:23 AM CDT) [facility] Method Time Signature Hemoglobin, Trace (A) Negative 09/30/2021 DTL QL, U 8:41 AM CDT Leukocyte Negative Negative 09/30/2021 DTL Esterase, U 8:41 AM CDT Nitrite, U Negative Negative 09/30/2021 DTL 8:41 AM CDT Ketone, U 5 (A) Negative 09/30/2021 DTL mg/dL 8:41 AM CDT Glucose, U Negative Negative 09/30/2021 DTL mg/dL 8:41 AM CDT Specimen Anatomical Collection Method Collection Time Receive d Time (Source) Location / / Volume Laterality Urine 09/30/2021 8:23 AM 8:24 CDT AM CDT Warren Hernández M.D., M.P.H. LAB URINE ORDERABLES Performing Organization Address City/State/ZIP Code Phon e Number [facility] - 200 [place], [place] [address] [place] [address] [facility] 200 [facility] Osmolality, Urine (09/30/2021 8:23 AM CDT) athologist Signature Osmolality, U 628 150 - 1150 09/30/2021 DTL mOsm/kg 9:41 AM CDT Specimen Anatomical Collection Method Collection Time Receive d Time (Source) Location / / Volume Laterality Urine 09/30/2021 8:23 AM 2 8:24 CDT AM CDT Warren Hernández M.D., M.P.H. LAB URINE ORDERABLES Performing Organization Address City/State/ZIP Code Phon e Number [facility] - 200 [place], [place] [address] [place] [address] pH, Random, Urine (09/30/2021 8:23 AM CDT) athologist Signature pH, Random, U 5.7 4.5 - 8.0 09/30/2021 DTL 9:41 AM CDT Specimen Anatomical Collection Method Collection Time Receive d Time (Source) Location / / Volume Laterality Urine 09/30/2021 8:23 AM 2 8:24 CDT AM CDT Warren Hernández M.D., M.P.H. LAB URINE ORDERABLES Performing Organization Address City/State/ZIP Code Phon e Number [facility] - [address] [place], [place] [address] [place] [id number] [place] [address] Microscopic Manual (09/30/2021 8:23 AM CDT) athologist Signature Microscopy Normal 09/30/2021 DTL 9:10 AM CDT RBC <3 <3 /hpf 09/30/2021 DTL 9:10 AM CDT Casts, Hyaline 1-3 /lpf 09/30/2021 DTL 9:10 AM CDT Squamous 1-3 /hpf 09/30/2021 DTL Epithelial 9:10 AM CDT Cells, U Specimen Anatomical Collection Method Collection Time Receive d Time (Source) Location / / Volume Laterality Urine 09/30/2021 8:23 AM 8:24 CDT AM CDT Warren Hernández M.D., M.P.H. LAB URINE ORDERABLES Performing Organization Address [facility]/ZIP [facility] Phon e Number [facility] - [address] [place], [place] [address] [facility] [place] [address] [facility] [address] Ethyl Glucuronide Screen with Reflex, Urine (09/30/2021 8:23 AM CDT) [facility] Method Time Signature Ethyl Negative Cutoff: 09/30/2021 [facility] Glucuronide Scrn 500 ng/mL 11:12 AM CDT w/Reflex, U Comment: ----ADDITIONAL INFORMATION---- This test was developed and its performa nce characteristics determined by [facility] in a manner consistent with CLIA requirements. This test has not been cleared or approved by the [place] d and Drug Administration. Specimen Anatomical Collection Method Collection Time Receive d Time (Source) Location / / Volume Laterality Urine (Urine, 09/30/2021 8:23 AM 10/01/19 22 9:59 Midstream) CDT AM CDT Warren Hernández M.D., M.P.H. LAB URINE ORDERABLES Performing Organization Address City/[facility] Phon e Number [facility] [address] [place], [place] [address] [facility] [place] [address] Laboratory Medicine and Pathology [address] [place] (ABNORMAL) Bacterial Culture, Aerobic + Susc, Urine (09/30/2021 8:23 AM CDT) Component Value Ref Test Analysis Performed At [facility] Range Method Time Signature Urine Culture STAPHYLOCOCCUS EPIDERMIDIS DTL 10,000-100,000 cfu/mL 2:00 PM CDT (A) Specimen Anatomical Collection Method Collection Time Receive d Time (Source) Location / / Volume Laterality Urine (Urine, 09/30/2021 8:23 AM 10/01/19 22 8:57 Midstream) CDT AM CDT Comment: Specimen Source Site: Urine Organism Antibiotic Method Susceptibility Staphylococcus epidermidis Oxacillin SUSCEPTIBILITY, SANA > 2 mcg/mL: Resistant (MCG/ML) Comment: Use oxacillin interpretation to predict results for anti-staphylococcal beta-lac arauz antibiotics (except ceftaroline). Staphylococcus Vancomycin SUSCEPTIBILITY, SANA 2 mcg/mL: Donohue sceptible epidermidis (MCG/ML) Staphylococcus Levofloxacin SUSCEPTIBILITY, SANA >4 mcg/mL: R esistant epidermidis (MCG/ML) Comment: Fluoroquinolones have a limi clayton role in treatment of staphylococcal infections; c onsult Infectious Diseases if considering usage. Staphylococcus Trimethoprim + SUSCEPTIBILITY, SANA <=0.5/9.5 mc g/mL: epidermidis Sulfamethoxazole (MCG/ML) Susceptible Staphylococcus Nitrofurantoin SUSCEPTIBILITY, SANA <=32 mcg/mL: epidermidis (MCG/ML) Susceptible Staphylococcus Rifampin SUSCEPTIBILITY, SANA >2 mcg/mL: epidermidis (MCG/ML) Resistant Comment: Rifampin should not be used as monotherapy Warren Hernández M.D., M.P.H. LAB MICROBIOLOGY - GEN ERAL ORDERABLES Performing Organization Address City/State/ZIP Code Phon e Number [facility] - [address] [place], [place] [address] [facility] [place] [address] [facility] [address] [facility] (ABNORMAL) Drug Abuse Survey with Confirmation, Panel 9, Urine (09/30/2021 8:23 AM CDT) Component Value Ref Test Analysis Performed At [facility] Range Method Time Signature Alcohol Negative Cutoff: [...] Negative Cutoff: 25 ng/mL 09/30/2021 11:12 AM [facility] CDT Tetrahydrocannabinol Presumptive Positive Cutoff: 50 ng/mL 09/30/2021 11:12 AM [facility] (A) CDT Comment: This immunoassay targets delta-9 [...] Its performance characteristics were determi foreign by [facility] in a manner consistent with CLIA [...] Organization Address City/State/ZIP Code Phon e Number [facility] [address] [place], [place] [address] [facility] [place] [address] Laboratory Medicine and Pathology [address] [place] Urinalysis with Microscopic: Urine, Midstream (09/30/2021 8:23 AM CDT) [facility] Method Time Signature Source Urine, Urine, 09/30/2021 DTL Midstream 8:23 AM CDT Color, U Yellow 09/30/2021 DTL 8:24 AM CDT Clarity, U Clear 09/30/2021 DTL 8:24 AM CDT Protein, U 23 <26 mg/dL 09/30/2021 DTL 9:29 AM CDT Protein/Osmol 0.37 <0.42 09/30/2021 DTL ality ratio 9:41 AM CDT Predicted 24 269 mg/24 h 09/30/2021 DTL Hr Protein 9:41 AM CDT Predicted 66-1088 mg/24 h 09/30/2021 DTL Range 9:41 AM CDT Comment Micro done on 09/30/2021 DTL <2.5 mL 9:10 AM CDT Specimen Anatomical Collection Method Collection Time Receive d Time (Source) Location / / Volume Laterality Urine (Urine, 09/30/2021 8:23 AM 10/01/19 8:23 Midstream) CDT AM CDT Warren Hernández M.D., M.P.H. LAB URINE ORDERABLES Performing Organization Address City/State/ZIP Code Phon e Number [facility] - [address] [place], [place] [address] [facility] [place] [address] [facility] [address] documented in this encounter Visit Diagnoses Diagnosis Cirrhosis Alcoholic (HCC) Abnormal Liver Function Test Ascites Pretransplant Recipient Evaluation Exam Preoperative Exam documented in this encounter Care Teams Program Clerk Relationship Specialty Start Date End Date Elsewhere, Pcp PCP - General Family Medicine 03/10/20 11/30/21 [facility] [place] [facility] 08/25/21 Ervin Schroeder MD Referring Provider Family Medicine 03/24/[address] [place] [address] documented as of this encounter
--- OUTSIDE RECORDS SUMMARY | 2021-12-28 23:29 | XMS_ITS | Encounter Summary ---
:1990 Author Organization [facility] Address [address] [place] [address] Care Team Providers Name Role Phone Elsewhere, Pcp Primary Care Provider Unavailable Reason for Referral Outpatient (Routine) - Closed Specialty Diagnoses / Procedures Referred By Contact Refer red To Contact Diagnoses Fatty Liver Failure Liver (HCC) Cirrhosis Alcoholic (HCC) Preoperative Exam Ascites Abnormal Liver Function Test Warren Hernández M.D., [facility] Procedures Six Minute Walk M.P.H. [address] [place] [address] Referral ID Status Reason Start Date Expiration Date Visits Requ ested Visits Authorized [id number] Closed 09/08/2021 09/08/2022 1 1 Reason for Visit Outpatient (Routine) - Closed Specialty Diagnoses / Procedures Referred By Contact Refer red To Contact Diagnoses Fatty Liver Failure Liver (HCC) Cirrhosis Alcoholic (HCC) Preoperative Exam Ascites Abnormal Liver Function Test Warren Hernández M.D., [facility] [place] [facility] Procedures Six Minute Walk M.P.H. [address] [place] [address] Referral ID Status Reason Start Date Expiration Date Visits Requ ested Visits Authorized [id number] Closed 09/08/2021 09/08/2022 1 1 Encounter Details Date Type Department Care Team Description 09/24/2021 Hospital Encounter Department of [place], Fatty Li fred; Pulmonary Warren A, Failure Liver ( HCC); Rehabilitation Lilian, M.P.H. Cirrhosis Alcoholic (HCC); [facility] [address] [facility] Preoperative Exam; [address] [place], [place] Ascites; [place] [phone] Abnormal Liver Function Test [phone] Social History Tobacco Use Types Packs/Day Years [...] do you attend hoahaoism or Never 2021 hinduism services? 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 [address] [place] [phone] (Wo rk) 01/12/2022 Appointment Laboratory Medicine Matthew Jerome M.B.B.SSuma, M.D. [address] [place] [phone] (Wo rk) 01/12/2022 Appointment Laboratory Medicine Adelien Frazier M.D., Ph.D. [address] [place] [phone] (Wo rk) 01/13/2022 Telemedicine Transplant Joel Tan L.I.C.SSumaW., M.S. W. [address] [place] [phone] (Wo rk) 01/13/2022 Telemedicine Transplant Matthew Jerome M.B.B.SSuma, M.D. [address] [place] [phone] (Wo rk) 01/13/2022 Telemedicine Transplant Adeline Frazier M.D., Ph.D. [address] [place] [phone] (Wo rk) 01/28/2022 Office Visit Gastroenterology and Matthew Jerome, Hepatology FredyLilian Stockton [address] [place] [phone] (Wo rk) Scheduled Procedures Name Priority Associated Diagnoses Date/Time ESOPHAGOGASTRODUODENOSCOPY Cirrhosis Alc oholic (HCC) Hypertension Portal (HCC) ESOPHAGOGASTRODUODENOSCOPY Cirrhosis Alc oholic (HCC) Ascites Anemia Macrocytic Thrombocytopenia (HC C) Deficiency Coagulation Acquired (HCC) documented as of this encounter Procedures Procedure Name Priority Date/Time Associated Diagnosis Comme nts 6 MINUTE WALK Routine 09/24/2021 10:08 AM CDT Fatty Li fred Failure Liver (H CC) Cirrhosis Alcoho lic (HCC) Preoperative Exa m Ascites Abnormal Liver Function Test documented in this encounter Results Six Minute Walk (09/24/2021 10:08 AM CDT) Specimen (Source) Anatomical Location Collection Method / Collectio n Time Received Time / Laterality Volume Warren Hernández M.D., M.P.H. CV STRESS PROCEDURES documented in this encounter Visit Diagnoses Diagnosis Fatty Liver Failure Liver (HCC) Cirrhosis Alcoholic (HCC) Preoperative Exam Ascites Abnormal Liver Function Test documented in this encounter Care Teams Scroll Saw Operator Relationship Specialty Start Date End Date Elsewhere, Pcp PCP - General Family Medicine 03/10/20 11/30/21 [facility] [place] [facility] 08/25/21 Ervin Schroeder MD Referring Provider Family Medicine 03/24/[address] [place] [phone] documented as of this encounter
--- OUTSIDE RECORDS SUMMARY | 2021-12-28 23:29 | XMS_ITS | Encounter Summary ---
:1990 Author Organization [facility] Address [address] [place] [address] Care Team Providers Name Role Phone Elsewhere, Pcp Primary Care Provider Unavailable Reason for Visit Reason Comments Hepatobiliary Encounter Details Date Type Department Care Team Description 09/19/2021 Clinical Communication Division of Edgar, Hepat obiliary Gastroenterology in [place], [place] Lilian, M.P.H. [address] [facility] [address] [place] [phone] [place], [place] [phone] [address] Social History Tobacco Use Types Packs/Day Years [...] or relatives? How often do you attend quaker or Never 2021 hoahaoism services? 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 - 09/22/2021 9:55 AM CDT SUBJECTIVE CHIEF COMPLAINT / REASON FOR CALL Hepatobiliary, CT abd, anxiety ASSESSMENT HB nurse phoned patient to discuss preference for CT abd at [place]. She was prescribed Ativan 1 mg to take pre-procedure, but she notes that Ativan makes her irritable. Without any sedation, she is not sure that she could be in the CT machine for the appropriate length of time to complete the study. She takes oxycodone for leg pain, approx one tab per day prn, taken September 20 & . She is not so much interested in getting an IV with gas sedation to complete the CT. Dr. Hernández is away today; HB nurse [facility]. PLAN Anxiety related to claustrophobia related to CT abd scheduled for 14:45 today at [place]. Disposition/Recommendation: notified provider and awaiting recommendations. Information/Education: patient/caller able to teach back. Caller agreeable to plan of care: yes. The following references were used: nursing clinical judgement. 10:30 Addendum: Patient informed that [facility] (per Dr. Ramirez Driscoll) says she has not been seen here in [place] yet so does not feel comfortable prescribing a controlled substance for a procedure that usually is not performed with much sedation. She should contact [facility] or her local PCPif she seeks additional sedation for her CT anxiety. She says she will try to complete the test withthe Ativan, as able. Telephone Encounter - Felicita Spicer L.P.N. - 09/22/2021 9:22 AM CDT Received a message from the patient stating she had not yet heard back regarding sedation for today's CT scan. Upon chart review she had called and discussed this with [facility] Department. Cabinetmaker Maintenance also explained that changed of sedation type may result in a change of date/time of CT scan and she likely would not be able to still have CT done today in [place] with a change of sedation type from oral Ativan. Patient expressed she would maybe be willing to try the CT scan as ordered. She will call and follow up with [facility]. documented in this encounter Plan of Treatment Upcoming Encounters Date Type Specialty Care Team Description 01/07/2022 Office Visit Community Internal Medicine Ranjit Red P.A.-C. [address] [place] [phone] (Gwendolyn rahman) 01/12/2022 Appointment Laboratory Medicine Matthew Jerome M.B.B.S., MCee. [address] [place] [phone] (Gwendolyn rahman) 01/12/2022 Appointment Laboratory Medicine Adeline Frazier M.D., Ph.D. [address] [place] [phone] (Wo rk) 01/13/2022 Telemedicine Transplant Joel Tan L.I.C.S.W., M.S. W. [address] [place] [phone] (Wo rk) 01/13/2022 Telemedicine Transplant Matthew Jerome M.B.B.SSuma, M.D. [address] [place] [phone] (Wo rk) 01/13/2022 Telemedicine Transplant Adeline Frazier M.D., Ph.D. [address] [place] [phone] (Wo rk) 01/28/2022 Office Visit Gastroenterology and Matthew Jerome, Hepatology Elizabeth.B.B.SSuma, M.D. [address] [place] [phone] (Wo rk) Scheduled Procedures Name Priority Associated Diagnoses Date/Time ESOPHAGOGASTRODUODENOSCOPY Cirrhosis Alc oholic (HCC) Hypertension Portal (HCC) ESOPHAGOGASTRODUODENOSCOPY Cirrhosis Alc oholic (HCC) Ascites Anemia Macrocytic Thrombocytopenia (HC C) Deficiency Coagulation Acquired (HCC) documented as of this encounter Visit Diagnoses Diagnosis Anxiety - Primary Personal History Of Failed Moderate Jo tion documented in this encounter Care Teams Emergency Management System Director Relationship Specialty Start Date End Date Elsewhere, Pcp PCP - General Family Medicine 03/10/20 11/30/21 [facility] [place] lab 08/25/21 Ervin Schroeder MD Referring Provider Family Medicine 03/24/[address] [place] [phone] documented as of this encounter
--- OUTSIDE RECORDS SUMMARY | 2021-12-28 23:29 | XMS_ITS | Encounter Summary ---
:1990 [facility] Address [address] [place] [address] Care Team Providers Name Role Phone Elsewhere, Pcp Primary Care Provider Unavailable Encounter Details Date Type Department Care Team Description 09/19/2021 Hospital Encounter Department of Matthew Jerome Abnorm al Liver Laboratory Medicine M.B.B.SSuma, M. Slick. Function Test in [place], [facility] [place], [place] 300 [facility] [address] [facility] [phone] (Work) [phone] Social History Tobacco Use Types Packs/Day Years [...] do you attend yarsanism or Never 2021 mu-ism services? 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 300 [place] [phone] (Gwendolyn rahman) 01/12/2022 Appointment Laboratory Medicine Matthew Jerome M.B.B.SSuma, M.D. [address] [place] [phone] (Gwendolyn rahman) 01/12/2022 Appointment Laboratory Medicine Adeline Frazier M.D., Ph.D. [address] [place] [phone] (Gwendolyn rahman) 01/13/2022 Telemedicine Transplant Joel Tan L.I.C.SZara, M.S. W. [address] [place] [phone] (Gwendolyn rahman) 01/13/2022 Telemedicine Transplant Matthew Jerome M.B.B.SSuma, M.D. [address] [place] [phone] (Gwendolyn rahman) 01/13/2022 Telemedicine Transplant Adeline Frazier M.D., Ph.D. [address] [place] [phone] (Gwendolyn rk) 01/28/2022 Office Visit Gastroenterology and Matthew Jerome, Hepatology Lilian Santillan [address] [place] [phone] (Gwendolyn rahman) Scheduled Procedures Name Priority Associated Diagnoses Date/Time ESOPHAGOGASTRODUODENOSCOPY Cirrhosis Alc oholic (HCC) Hypertension Portal (HCC) ESOPHAGOGASTRODUODENOSCOPY Cirrhosis Alc oholic (HCC) Ascites Anemia Macrocytic Thrombocytopenia (HC C) Deficiency Coagulation Acquired (HCC) documented as of this encounter Procedures Procedure Name Priority Date/Time Associated Comments Diagnosis CREATININE WITH Routine 09/19/2021 1:32 PM Abnormal Liver Resu lts for this EGFR, S/P CDT Function Test procedure are in the results section. documented in this encounter Results Creatinine with Estimated GFR (09/19/2021 1:32 PM CDT) P athologist Signature Creatinine 0.68 0.59 - 09/19/2021 [place] 1.04 mg/dL 4:09 PM CDT eGFR-Black/Afric >90 >=60 09/19/2021 [place] an Sierra Leonean mL/min/BSA 4:09 PM CDT Comment: ----ADDITIONAL INFORMATION---- Estimated GFR calculated using the 2009 CKD_EPI creatinine equation. eGFR Non-Black/ >90 >=60 mL/min/BSA 09/19/2021 4:09 PM CDT OW[place] Comment: ----ADDITIONAL INFORMATION---- Estimated GFR calculated using the 2009 CKD_EPI creatinine equation. Specimen Anatomical Collection Method Collection Time Receive d Time (Source) Location / / Volume Laterality Blood (Blood, 09/19/2021 1:32 PM 09/20/19 22 3:30 Venous) CDT PM CDT Matthew Santillan M.D. LAB BLOOD ADD-ON Performing Organization Address City/State/ZIP Code Phon e Number [facility]- [address] [place] [address] [place] [address] System in [place] [address] documented in this encounter Visit Diagnoses Diagnosis Abnormal Liver Function Test documented in this encounter Care Teams Rustic Fence Builder Relationship Specialty Start Date End Date Elsewhere, Pcp PCP - General Family Medicine 03/10/20 11/30/21 [facility] [place] [facility] 08/25/21 Ervin Schroeder MD Referring Provider Family Medicine 03/24/21[address] [place] [address] documented as of this encounter
--- OUTSIDE RECORDS SUMMARY | 2021-12-28 23:29 | XMS_ITS | Encounter Summary ---
:1990 Author Organization [facility] Address [address] [place] [address] Care Team Providers Name Role Phone Elsewhere, Pcp Primary Care Provider Unavailable Reason for Visit Transplant (Routine) - Closed Specialty Diagnoses / Procedures Referred By Contact Refer red To Contact Transplant Surgery / Diagnoses Cirrhosis Alcoholic (HCC) Abnormal Liver Function Test Ascites Pretransplant Recipient Evaluation Exam [facility] Lilian, M.P.H. [address] [place] [address] Referral ID Status Reason Start Date Expiration Date Visits Requ ested Visits Authorized [id number] Closed 08/25/2021 08/25/2022 1 1 Encounter Details Date Type Department Care Team Description 09/30/2021 Comprehensive Visit Warren Middleton M.D., M.P.H. [address] [place] [phone] Cirrhosis Alcoholic (HCC); [facility] Milagros Navarro M.S., RDN, LD [address] [place] [address] Abnormal Liver Function Test; Transplantation and Ascites; Clinical Regeneration Pretra nsplant Recipient Evaluation Exam; in [place], [facility] E xam [place] [address] [place] [address] Social History Tobacco Use Types Packs/Day Years [...] you attend oriental orthodox or Never 2021 zoroastrianism services? 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 Catia Carias is referred for pre-liver transplant nutrition assessment and education. Met with patient and mother. TRANSPLANT CANDIDACY STATEMENT From a nutritional perspective, this patient presents as an appropriate transplant candidate. ASSESSMENT Relevant Social and Family History She lives with her boyfriend. Nutrition Focused Physical Findings Average estimated Intake: No Change Weight Loss: No Change Body Fat: Mild Loss Muscle Mass: Mild Loss Hand Consulting Services Manager Strength: Left Kg of Force (Right): 22 Kg of Force (Left): 20 Nausea Food/Nutrition Related History Diet Experience: She follows a low sodium diet. She shares cooking responsibilities with her boyfriend. She eats lots of fruits and vegetables. She was a vegetarian for about 13 years. She decided to reintroduce meats to help increase her protein intake. She likes protein bars but doesn't like the texture of protein shakes. Current Intake: She drinks up to 2-3 cans of Sprite per day, which helps her nausea. ?? Breakfast: skips - not hungry, sleeps later ?? AM snack: occasionally fruit or vegetables or a protein bar. ?? Lunch (11 am - 3 pm): fruit an/or vegetables or yogurt parfait or peanut butter sandwich ?? PM snack: pistachios or fruit or Skinny Pop popcorn or protein bar ?? Dinner: 1-4 pieces of fruit, raw vegetables, small chicken breast or sandwich ?? HS snack: lemon/confederated salish, apple, a few crackers or protein bar Physical Activity: She goes up/down her apartment stairs a few times per day to check her mail, run errands, etc. She has a pool pass for a local [employer]. Weight History Patient Weight: 09/24/21 : 58.9 kg 08/05/21 : 58.9 kg 08/02/21 : 58.2 kg BMI Readings from Last 1 Encounters: 09/24/21 23.74 kg/m?? Weight changes: She shares that her weight is relatively stable, with the exception of weight changes related to fluid fluctuation. Estimation of Nutritional Needs Calories: 1638 kcal (HB+20%) Protein: 71 grams (1.2 g/kg) NUTRITION DIAGNOSIS Food and nutrition-related knowledge deficit (NB-1.1) related to transplant as evidenced by no priormedical nutrition therapy on this topic. Nutrition Prescription/Recommendation 70-90 grams protein, 5-6 meals/snacks daily (each with a good source of protein), 2000 milligrams sodium INTERVENTION Counseling: We reviewed nutrition guidelines for liver disease, including the importance of regular meals/snacks with adequate protein intake, limiting sodium intake and regular physical activity. MONITORING AND EVALUATION: Nutrition parameter to monitor: Nutritional status Desired Outcome: Optimize Patient Goal(s): 1. Eat 5-6 small meals and snacks each day - each a source of protein with each meal/snack. Try using Beneprotein in smoothies or ice cream due to dislike of protein shakes. 2. Limit sodium intake to 2000 mg or less per day. Read nutrition labels and select foods with less than 200 mg of sodium per serving. Avoid using salt while cooking or at the table. 3. Be as active as possible. FOLLOW UP PLAN: Provided name and phone number if questions should arise. Time spent with patient (minutes): 60 documented in this encounter Plan of Treatment Upcoming Encounters Date Type Specialty Care Team Description 01/07/2022 Office Visit [facility] Ranjit Red P.A.-C. [address] [place] [address] (Gwendolyn rahman) 01/12/2022 Appointment Laboratory Medicine Matthew Jerome M.B.B.S., M.D. [address] [place] [phone] (Gwendolyn rahman) 01/12/2022 Appointment Laboratory Medicine Adeline Frazier M.D., Ph.D. [address] [place] [phone] (Gwendolyn rahman) 01/13/2022 Telemedicine Transplant Joel Tan L.I.C.S.W., M.S. W. [address] [place] [phone] (Gwendolyn rahman) 01/13/2022 Telemedicine Transplant Matthew Jerome M.B.B.S., MCee. [address] [place] [phone] (Wo rk) 01/13/2022 Telemedicine Transplant Adeline Frazier M.D., Ph.D. [address] [place] [phone] (Wo rk) 01/28/2022 Office Visit Gastroenterology and Matthew Jerome, Hepatology Tyrell, Lilian [address] [place] [phone] (Wo rk) Scheduled Procedures Name Priority Associated Diagnoses Date/Time ESOPHAGOGASTRODUODENOSCOPY Cirrhosis Alc oholic (HCC) Hypertension Portal (HCC) ESOPHAGOGASTRODUODENOSCOPY Cirrhosis Alc oholic (HCC) Ascites Anemia Macrocytic Thrombocytopenia (HC C) Deficiency Coagulation Acquired (HCC) documented as of this encounter Visit Diagnoses Diagnosis Cirrhosis Alcoholic (HCC) Abnormal Liver Function Test Ascites Pretransplant Recipient Evaluation Exam Preoperative Exam documented in this encounter Care Teams Orthopedic Podiatrist Relationship Specialty Start Date End Date Elsewhere, Pcp PCP - General Family Medicine 03/10/20 11/30/21 [facility] [place] [facility] 08/25/21 Ervin Schroeder MD Referring Provider Family Medicine 03/24/[address] [place] [phone] documented as of this encounter
--- OUTSIDE RECORDS SUMMARY | 2021-12-28 23:29 | XMS_ITS | Encounter Summary ---
:1990 Author Organization [facility] Address [address] [place] [address] Care Team Providers Name Role Phone Elsewhere, Pcp Primary Care Provider Unavailable Reason for Referral MRI/CAT/PET Scan (Routine) - Closed Specialty Diagnoses / Procedures Referred By Contact Refer red To Contact Radiology Diagnoses Fatty Liver Failure Liver (HCC) Cirrhosis Alcoholic (HCC) Preoperative Exam Ascites Abnormal Liver Function Test Warren Hernández M.D., [facility] Region Procedures CT Abdomen without and with IV Contrast M.P.H. [address] [place] [address] Referral ID Status Reason Start Date Expiration Date Visits Requ ested Visits Authorized [id number] Closed 09/08/2021 09/08/2022 1 1 Reason for Visit MRI/CAT/PET Scan (Routine) - Closed Specialty Diagnoses / Procedures Referred By Contact Refer red To Contact Radiology Diagnoses Fatty Liver Failure Liver (HCC) Cirrhosis Alcoholic (HCC) Preoperative Exam Ascites Abnormal Liver Function Test Warren Hernández M.D., [facility] Region Procedures CT Abdomen without and with IV Contrast M.P.H. [address] [place] [address] Referral ID Status Reason Start Date Expiration Date Visits Requ ested Visits Authorized [id number] Closed 09/08/2021 09/08/2022 1 1 Encounter Details Date Type Department Care Team Description 09/22/2021 Hospital Encounter Department of Deena Hernández fred; Radiology, [place] Warren Schaefer M.D., Greg e Liver (HCC); [facility], in M.P.H. Cirrhosis Alcoholic (HCC); [place], [place] [address] [facility] Preoperative Exam; [address] [place], [place] Ascites; [place] [address] Abnormal Liver Function Test [id number] Social History Tobacco Use Types Packs/Day Years [...] do you attend muslim or Never 2021 adventism services? 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 [...] Internal Medicine Ranjit Red P.A.-C. 300 [place] [address] (Wo rk) 01/12/2022 Appointment Laboratory Medicine Matthew Jerome M.B.B.S., Lilian [address] [place] [phone] (Wo rk) 01/12/2022 Appointment Laboratory Medicine Adeline Frazier M.D., Ph.D. [address] [place] [phone] (Wo rk) 01/13/2022 Telemedicine Transplant Joel Tan L.I.C.S.W., M.S. W. [address] [place] [phone] (Wo rk) 01/13/2022 Telemedicine Transplant Matthew Jerome M.B.B.SSuma, MJules [address] [place] [phone] (Wo rk) 01/13/2022 Telemedicine Transplant Adeline Frazier M.D., Ph.D. [address] [place] [phone] (Wo rk) 01/28/2022 Office Visit Gastroenterology and Matthew Jerome, Hepatology Tyrell, MJules [address] [place] [phone] (Wo rk) Scheduled Procedures Name Priority Associated Diagnoses Date/Time ESOPHAGOGASTRODUODENOSCOPY Cirrhosis Alc oholic (HCC) Hypertension Portal (HCC) ESOPHAGOGASTRODUODENOSCOPY Cirrhosis Alc oholic (HCC) Ascites Anemia Macrocytic Thrombocytopenia (HC C) Deficiency Coagulation Acquired (HCC) documented as of this encounter Procedures Procedure Name Priority Date/Time Associated Comments Diagnosis CT ABDOMEN RAD - Routine 09/22/2021 3:32 Fatty Liver Results for this WITHOUT AND WITH (most inpatients PM CDT Failure Liver proced ure are in IV CONTRAST and all (HCC) the results outpatients) Cirrhosis section. Alcoholic (HCC) Preoperative Exa m Ascites Abnormal Liver Function Test documented in this encounter Results CT Abdomen without and with IV Contrast (09/22/2021 3:32 PM CDT) Anatomical Region Laterality Modality Abdomen, Abdominal RST LOS, Abdominal ARZ LOS, N/A Computed Tomography Abdominal FLA LOS Specimen (Source) Anatomical Collection Method Collection Time Re ceived Time Location / / Volume Laterality 09/22/2021 3:27 PM CDT Impressions 09/22/2021 4:08 PM CDT 1. Diffusely heterogeneous hepatic parenchyma with lobulated contour consistent with known history of cirrhosis. No focal hepatic mass iden tified. 2. Distended gallbladder containing slud ge and/or small stones. No evidence for acute cholecystitis. 3. Stable splenomegaly. 4. Mild ascites, decreased since prior C T. 5. Increased peripancreatic and mesenter ic edema. Narrative 09/22/2021 4:08 PM CDT EXAM: CT ABDOMEN WITHOUT AND WITH IV CONTRAST COMPARISON: CT 03/21/2021, ultrasound FINDINGS: Lower chest: No acute findings. Mild dependent atelec tasis. Left lower lobe nodule measuring 3 mm, s eries 9 image 1, not included on prior CT. Abdomen/pelvis: Diffusely heterogeneous hepatic parenchy ma with a slightly lobulated contour consistent with known history of cirrhosis. No focal hepatic m ass identified. Distended gallbladder containing sludge and/or small stones. No significant gallbladder wall thickening. No significant biliary dilat ation. Moderate splenomegaly. Spleen measures 1 4.7 cm in length. Portal vein, splenic vein and SMV patent . Varices in left upper quadrant. Mildly atrophic pancreas with coarse ada cifications in pancreatic head and body suggesting chronic pancreatitis. Increased edema surroundin g pancreatic head extending caudally along mesenteric vessels. Mild ascites, decreased since prior CT. No bowel obstruction. No free intraperit garcia air. Normal caliber abdominal aorta. Bones and soft tissues: Mild diffuse soft tissue edema. No acute bony abnormality or suspicious osseous lesions. Procedure Note Yolanda Pineda M.D. - 09/22/2021Format ting of this note might be different from the original. EXAM: CT ABDOMEN WITHOUT AND WITH IV CON TRAST COMPARISON: CT 03/21/2021, ultrasound FINDINGS: Lower chest: No acute findings. Mild dependent atelec tasis. Left lower lobe nodule measuring 3 mm, s eries 9 image 1, not included on prior CT. Abdomen/pelvis: Diffusely heterogeneous hepatic parenchy ma with a slightly lobulated contour consistent with known history of cirrhosis. No focal hepatic m ass identified. Distended gallbladder containing sludge and/or small stones. No significant gallbladder wall thickening. No significant biliary dilat ation. Moderate splenomegaly. Spleen measures 1 4.7 cm in length. Portal vein, splenic vein and SMV patent . Varices in left upper quadrant. Mildly atrophic pancreas with coarse ada cifications in pancreatic head and body suggesting chronic pancreatitis. Increased edema surroundin g pancreatic head extending caudally along mesenteric vessels. Mild ascites, decreased since prior CT. No bowel obstruction. No free intraperit garcia air. Normal caliber abdominal aorta. Bones and soft tissues: Mild diffuse soft tissue edema. No acute bony abnormality or suspicious osseous lesions. IMPRESSION: 1. Diffusely heterogeneous hepatic paren chyma with lobulated contour consistent with known history of cirrhosis. No focal hepatic mass iden tified. 2. Distended gallbladder containing slud ge and/or small stones. No evidence for acute cholecystitis. 3. Stable splenomegaly. 4. Mild ascites, decreased since prior C T. 5. Increased peripancreatic and mesenter ic edema. Warren Hernández M.D., M.P.H. IMG CT PROCEDURES documented in this encounter Visit Diagnoses Diagnosis Fatty Liver Failure Liver (HCC) Cirrhosis Alcoholic (HCC) Preoperative Exam Ascites Abnormal Liver Function Test documented in this encounter Administered Medications Inactive Administered Medications - up to 3 most recent administrations Medication Order MAR Action Action Date Dose Rate Site iohexoL 300 mg iodine/mL Given 09/22/2021 3:21 PM 100 mL Left Antecubital solution 1-200 mL CDT (OMNIPAQUE) 1-200 mL, intravenous, Once in imaging, contrast, Starting on 09/22/21 at 1530, For 1 dose, Imaging Protocol Orders, Dose per Radiant Medication Guidelines sodium chloride 0.9 % flush Given 09/22/2021 3:21 PM CDT 100 mL Left Antecubital 100 mL 100 mL, intravenous, Once in imaging, line care, for CT exam, Starting on Wed09/22/21 at 1530, For 1 dose sodium chloride 0.9 % injection Given 09/22/2021 3:21 PM CDT 10 mL Left Antecubital 10 mL 10 mL, intravenous, Once in imaging, line care, For CT exam, Starting on Wed09/22/21 at 1530, For 1 dose documented in this encounter Care Teams Stamping Die Maker Relationship Specialty Start Date End Date Elsewhere, Pcp PCP - General Family Medicine 03/10/20 11/30/21 [facility] [place] [facility] 08/25/21 Ervin Schroeder MD Referring Provider Family Medicine 03/24/[address] [place] [phone] documented as of this encounter
--- OUTSIDE RECORDS SUMMARY | 2021-12-28 23:29 | XMS_ITS | Encounter Summary ---
:1990 Author Organization [facility] Address [address] [place] [address] Care Team Providers Name Role Phone Elsewhere, Pcp Primary Care Provider Unavailable Reason for Visit Reason Comments Medication Question Encounter Details Date Type Department Care Team Description 09/18/2021 Clinical Department of Dannielle, Medication Communication [place] L.P.N. [address] [facility] [phone] [place] [address] (Work) [phone] Social History Tobacco Use Types Packs/Day Years [...] do you attend judaism or Never 2021 mu-ism services? 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 - 09/18/2021 10:30 AM CDT Portal message sent to the patient clarifying with pharmacy she would like the Rx faxed to. Telephone Encounter - Felicita Spicer L.P.N. - 09/18/2021 8:08 AM CDT Patient called yesterday and inquired if she had any medication sent in for her upcoming CT on 09/22 as she has anxiety and feels she will not be able to lay through the CT scan without something for anxiety. Upon chart review the CT scan was ordered by [facility] (Dr. Hernández) and patient requested to have CTcompleted locally. Should I route this to RST for possible order for one time Ativan before CT? Please advise. Thank you! documented in this encounter Plan of Treatment Upcoming Encounters Date Type Specialty Care Team Description 01/07/2022 Office Visit [facility] Ranjit Red P.A.-C. [address] [place] [phone] (Wo rk) 01/12/2022 Appointment Laboratory Medicine Matthew Jerome M.B.B.SSuma, M.D. [address] [place] [phone] (Wo rk) 01/12/2022 Appointment Laboratory Medicine Adeline Frazier M.D., Ph.D. [address] [place] [address] [phone] (Wo rk) 01/13/2022 Telemedicine Transplant Joel Tan L.I.C.SSumaW., M.S. W. [address] [place] [phone] (Wo rk) 01/13/2022 Telemedicine Transplant Matthew Jerome M.B.B.S., M.D. [address] [place] [phone] (Gwendolyn rk) 01/13/2022 Telemedicine Transplant Adeline Frazier M.D., Ph.D. [address] [place] [address] [phone] (Wo lacey) 01/28/2022 Office Visit Gastroenterology and Matthew Jerome, Hepatology VikBSumaSSuma, M.D. [address] [place] [phone] (Gwendolyn rk) Scheduled Procedures Name Priority Associated Diagnoses Date/Time ESOPHAGOGASTRODUODENOSCOPY Cirrhosis Alc oholic (HCC) Hypertension Portal (HCC) ESOPHAGOGASTRODUODENOSCOPY Cirrhosis Alc oholic (HCC) Ascites Anemia Macrocytic Thrombocytopenia (HC C) Deficiency Coagulation Acquired (HCC) documented as of this encounter Visit Diagnoses Diagnosis Anxiety - Primary documented in this encounter Additional Health Concerns Infection Onset Date Last Indicated Resolved Time COVID19 08/29/2021 08/29/2021 09/18/2021 8:31 AM CDT documented as of this encounter Care Teams Infrastructure Manager Relationship Specialty Start Date End Date Elsewhere, Pcp PCP - General Family Medicine 03/10/20 11/30/21 [facility] [place] lab 08/25/21 Ervin Schroeder MD Referring Provider Family Medicine 03/24/[address] [place] [address] [phone] documented as of this encounter
--- OUTSIDE RECORDS SUMMARY | 2021-12-28 23:29 | XMS_ITS | Encounter Summary ---
:1990 Author Organization [facility] Address [address] [place] [address] Care Team Providers Name Role Phone Elsewhere, Pcp Primary Care Provider Unavailable Reason for Visit Reason Comments Appointment PMR PT Encounter Details Date Type Department Care Team Description 09/15/2021 Clinical Department of [facility] Matthew Appointment (P MR Communication Gastroenterology in [place], M.B.B.S., PT) [place], [place] M.D 1025 [facility] 1025 [place] [address] [place] [address] Social History Tobacco Use Types Packs/Day Years [...] do you attend shinto or Never 2021 yazidi services? Do you belong to any clubs or No 07/17/2021 organizations such as shinto groups, unions, [employer] or athletic groups, or school groups? 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 Thank you in advance Telephone Encounter - Andreas Lopez - 09/15/2021 11:[address] Queenie Henson could you please place an order for [place] for PMR PT appt. Pt would like to see in there is anything available while she is here for LTE. Thank you in advance documented in this encounter Plan of Treatment Upcoming Encounters Date Type Specialty Care Team Description 01/07/2022 Office Visit Community Internal Medicine Ranjit Red P.A.-C. [address] [place] [phone] (Wo rk) 01/12/2022 Appointment Laboratory Medicine Matthew Jerome M.B.BSumaSSuma, MJules [address] [place] [phone] (Wo rk) 01/12/2022 Appointment Laboratory Medicine Adeline Frazier M.D., Ph.D. [address] [place] [phone] (Gwendolyn rahman) 01/13/2022 Telemedicine Transplant Joel Tan L.I.C.S.W., M.S. W. [address] [place] [address] [phone] (Gwendolyn rahman) 01/13/2022 Telemedicine Transplant Matthew Jerome M.B.B.SSuma, MCee. [address] [place] [phone] (Gwendolyn rk) 01/13/2022 Telemedicine Transplant Adeline Frazier M.D., Ph.D. [address] [place] [phone] (Gwendolyn rahman) 01/28/2022 Office Visit Gastroenterology and Matthew Jerome, Hepatology Elizabeth.B.B.SSuma, MJules [address] [place] [phone] (Gwendolyn rk) Scheduled Procedures Name Priority [...] documented as of this encounter Care Teams Weaving Instructor Relationship Specialty Start Date End Date Elsewhere, Pcp PCP - General Family Medicine 03/10/20 11/30/21 [facility] [place] [facility] 08/25/21 Ervin Schroeder MD Referring Provider Family Medicine 03/24/[address] [place] [phone] documented as of this encounter
[2021-12-28 23:30] VITALS: BP 101/55; PULSE 87; RESP 12; O2SAT 90
--- OUTSIDE RECORDS SUMMARY | 2021-12-28 23:30 | XMS_ITS | Encounter Summary ---
:1990 Author Organization [facility] Address [address] [place] [address] Care Team Providers Name Role Phone Elsewhere, Pcp Primary Care Provider Unavailable Encounter Details Date Type Department Care Team Description 08/29/2021 Lab Department of [facility] [place], YARITZA M.S.N ., R.N. Preprocedural Laboratory [address] Examination (COVID-19) [address] [place] [address] [place] [phone] (Wo rk) Social History Tobacco Use Types [...] do you attend evangelical or Never 2021 druze services? Do you belong to any clubs or No 07/17/2021 organizations such as evangelical groups, unions, fraBTC Trip or athletic groups, or school groups? 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 - 08/30/2021 9:03 AM CDT Your patient has tested positive [...] coordinate the care. For questions, contact the [place] Covid Care Team (CCT): Pager: [phone] In basket: P [facility] COVID-19 POSITIVE Covid Care e-consult NOTE: At the time of testing, patients are instructed to obtain the result by calling the [employer] result line or by checking their online services account. documented in this encounter Plan of Treatment Upcoming Encounters Date Type Specialty Care Team Description 01/07/2022 Office Visit Community Internal Medicine Ranjit Red P.A.-C. [address] [place] [phone] (Wo rk) 01/12/2022 Appointment Laboratory Medicine Matthew Jerome M.B.B.S., M.D. [address] [place] [phone] (Wo rk) 01/12/2022 Appointment Laboratory Medicine Adeline Frazier M.D., Ph.D. [address] [place] [phone] (Wo rk) 01/13/2022 Telemedicine Transplant Joel Tan L.I.C.SZara, M.S. W. [address] [place] [phone] (Wo rk) 01/13/2022 Telemedicine Transplant Matthew Jerome M.B.B.S., M.D. [address] [place] [phone] (Wo rk) 01/13/2022 Telemedicine Transplant Adeline Frazier M.D., Ph.D. [address] [place] [phone] (Wo rk) 01/28/2022 Office Visit Gastroenterology and Matthew Jerome, Hepatology Tyrell, M.D. [address] [place] [phone] (Wo rk) Scheduled Procedures Name Priority Associated Diagnoses Date/Time ESOPHAGOGASTRODUODENOSCOPY Cirrhosis Alc oholic (HCC) Hypertension Portal (HCC) ESOPHAGOGASTRODUODENOSCOPY Cirrhosis Alc oholic (HCC) Ascites Anemia Macrocytic Thrombocytopenia (HC C) Deficiency Coagulation Acquired (HCC) documented as of this encounter Procedures Procedure Name Priority Date/Time Associated Diagnosis Comme nts SARS CORONAVIRUS-2 Routine 08/29/2021 4:14 PM Encounter For Re sults for this RNA, V CDT Preprocedural procedure are in Laboratory Examination the r esults (COVID-19) section. documented in this encounter Results (ABNORMAL) SARS Coronavirus-2 RNA, V Asymptomatic (08/29/2021 4:14 PM CDT) [facility] Method Time Signature SARS-CoV-2 Swab, 08/29/2021 MKTO Specimen Nasopharynx 11:28 PM Source CDT SARS CoV-2 Detected (A) Undetected 08/29/2021 MKTO RNA, TMA 11:28 PM CDT Comment: SARS-CoV-2 RNA present. ----ADDITIONAL INFORMATION---- This molecular amplification test was pe rformed using the Aptima SARS-CoV-2 assay ([employer] on the [employer] tem under emergency use authorization (EUA) by the U.S. Food and Drug Administ ration. Fact sheets for this EUA assay can be fo und at the following links: For Healthcare Providers: https://www.fd a.gov/media/419887/download For Patients: https://www.fda.gov/media/ 135037/download Specimen Anatomical Collection Method Collection Time Receive d Time (Source) Location / / Volume Laterality Varies 08/29/2021 4:14 PM 5:17 (Nasopharynx) CDT PM CDT Kerry Naranjo APRN M.S.N., R.N. LAB MICROBIOLOGY - G ENERAL ORDERABLES Performing Organization Address City/State/ZIP Code Phon e Number [facility]- [address] [place] [address] [place] [address] documented in this encounter Visit Diagnoses Diagnosis Encounter For Preprocedural Laboratory E xamination (COVID-19) documented in this encounter Additional Health Concerns Infection Onset Date Last Indicated Resolved Time COVID19 Pending 08/29/2021 08/29/2021 08/29/2021 11:29 PM CDT documented as of this encounter Care Teams Critical Care Nurse Relationship Specialty Start Date End Date Elsewhere, Pcp PCP - General Family Medicine 03/10/20 11/30/21 [facility] [place] [facility] 08/25/21 Ervin Schroeder MD Referring Provider Family Medicine 03/24/[address] [place] [phone] documented as of this encounter
--- OUTSIDE RECORDS SUMMARY | 2021-12-28 23:30 | XMS_ITS | Encounter Summary ---
:1990 Author Organization [facility] Address [address] [place] [address] Care Team Providers Name Role Phone Elsewhere, Pcp Primary Care Provider Unavailable Encounter Details Date Type Department Care Team Description 09/05/2021 Clinical Communication Department of Kerry Naranjo Gastroenterology in [place], [place] M.S.N., R.N. 1025 [facility] 1025 [place] [address] [place], [place] [phone] Social History Tobacco Use Types Packs/Day [...] do you attend holiness or Never 2021 druze services? Do you [...] place to sleep or slept in a fdc (including now)? Education Answer Date Recorded What is the highest level of school Associate degree: ruth barker, 07/16/2021 you have completed or the highest technical, or vocational p rolf degree you have received? 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 - 09/08/2021 11:38 AM CDT Patient is aware of the need to reschedule, per endoscopy patient must be scheduled out 21 days fromher positive COVID test. Nothing further for nursing to do at this time. Once she is rescheduled we can work on getting the other testings scheduled accordingly. At this time the procedure is not yet re scheduled. Telephone Encounter - Kerry Naranjo APRN, C.N.P., M.S.N. - 09/05/2021 3:20 PM CDT Have ordered EGD with MAC for Varices screening. The last one was Cx as she tested +COVID. She will need pt/inr and cbc one week prior as she will likely also need vitamin K oral or infusionsand possibly platelet infusions. I have ordered the lab as well. Thanks, Kerry documented in this encounter Plan of Treatment Upcoming Encounters Date Type Specialty Care Team Description 01/07/2022 Office Visit [facility] Ranjit Red P.A.-C. [address] [place] [phone] (Wo rk) 01/12/2022 Appointment Laboratory Medicine Matthew Jerome M.B.B.S., M.D. [address] [place] [phone] (Wo rk) 01/12/2022 Appointment Laboratory Medicine Adeline Frazier M.D., Ph.D. [address] [place] [phone] (Wo rk) 01/13/2022 Telemedicine Transplant Joel Tan L.I.C.SSumaW., M.S. W. [address] [place] [phone] (Wo rk) 01/13/2022 Telemedicine Transplant Matthew Jerome M.B.B.SSuma, M.D. [address] [place] [phone] (Wo rk) 01/13/2022 Telemedicine Transplant Adeline Frazier M.D., Ph.D. [address] [place] [phone] (Wo rk) 01/28/2022 Office Visit Gastroenterology and Matthew Jerome, Hepatology FredySSuma, M.D. [address] [place] [address], [place] [phone] (Wo rk) Scheduled Orders Name Type Priority Associated Diagnoses Order S chedule CBC without Differential Lab Routine Cirrhos is Alcoholic (HCC) Expected: 09/19/2021 Thrombocytopenia (HCC) (Approximate), Hypertension Por meagan (HCC) Expires: 12/06/2022 Deficiency Coagulation Acquired (HCC) Pretransplant Recipient Evaluation Exam Prothrombin Time (PT) Lab Routine Cirrhosis Alcoholic (HCC) Expected: 09/19/2021 Thrombocytopenia (HCC) (Approximate), Hypertension Por meagan (HCC) Expires: 12/06/2022 Deficiency Coagulation Acquired (HCC) Pretransplant Recipient Evaluation Exam Scheduled Procedures Name Priority Associated Diagnoses Date/Time ESOPHAGOGASTRODUODENOSCOPY Cirrhosis Alc oholic (HCC) Hypertension Portal (HCC) ESOPHAGOGASTRODUODENOSCOPY Cirrhosis Alc oholic (HCC) Ascites Anemia Macrocytic Thrombocytopenia (HC C) Deficiency Coagulation Acquired (HCC) documented as of this encounter Visit Diagnoses Diagnosis Cirrhosis Alcoholic (HCC) - Primary Thrombocytopenia (HCC) Hypertension Portal (HCC) Deficiency Coagulation Acquired (HCC) Pretransplant Recipient Evaluation Exam documented in this encounter Additional Health Concerns Infection Onset Date Last Indicated Resolved Time COVID19 08/29/2021 08/29/2021 09/18/2021 8:31 AM CDT documented as of this encounter Care Teams Penology Professor Relationship Specialty Start Date End Date Elsewhere, Pcp PCP - General Family Medicine 03/10/20 11/30/21 [facility] [place] [facility] 08/25/21 Ervin Schroeder MD Referring Provider Family Medicine 03/24/[address] [place] [phone] documented as of this encounter
--- OUTSIDE RECORDS SUMMARY | 2021-12-28 23:30 | XMS_ITS | Encounter Summary ---
:1990 Author Organization [facility] Address [address] [place] [address] Care Team Providers Name Role Phone Elsewhere, Pcp Primary Care Provider Unavailable Reason for Visit Reason Comments Phone Contact Records 08/03 Encounter Details Date Type Department Care Team Description 08/29/2021 Clinical Department of Matthew Jerome Phone Contact Communication Gastroenterology in Y, MSumaB.B.S., (Record s 08/03) [place], [place] M.Jeri [address] [facility] 1025 [place] [phone] [place] [phone] Social History Tobacco Use Types Packs/Day Years [...] do you attend holiness or Never 2021 voodoo services? Do you belong to any clubs or No 07/17/2021 organizations such as holiness groups, unions, fraLamoda or athletic groups, or school groups? How [...] or the highest technical, or vocational p [facility] degree you have received? 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 Jerome, I spoke with patient regarding LTE. Will work next week on her schedule. Hoping to have her done in time for your wrap 09/17. She also mentioned she wanted you to send her records from when she saw you 08/05. Sounded like last time she spoke to you though, your note wasn't done. She is unsure if the note on the portal was all of Dr. Jerome's note? Or are we still waiting for him to add more? If not, can you please send these clinical notes to her? Thank you in advance documented in this encounter Plan of Treatment Upcoming Encounters Date Type Specialty Care Team Description 01/07/2022 Office Visit [facility] Ranjit Red P.A.-C. 300 [facility] [place] [phone] (Wo rk) 01/12/2022 Appointment Laboratory Medicine Matthew Jerome M.B.B.SSuma, Lilian [address] [place] [phone] (Wo rk) 01/12/2022 Appointment Laboratory Medicine Adeline Frazier M.D., Ph.D. [address] [place] [phone] (Wo rk) 01/13/2022 Telemedicine Transplant Joel Tan L.I.C.S.W., M.S. W. [address] [place] [phone] (Wo rk) 01/13/2022 Telemedicine Transplant Matthew Jerome M.B.B.S., M.D. [address] [place] [phone] (Wo rk) 01/13/2022 Telemedicine Transplant Adeline Frazier M.D., Ph.D. [address] [place] [phone] (Wo rk) 01/28/2022 Office Visit Gastroenterology and Matthew Jerome, Hepatology FredySSuma, MJules [address] [place] [phone] (Wo rk) Scheduled Procedures Name Priority [...] documented as of this encounter Care Teams Improvement Lead Relationship Specialty Start Date End Date Elsewhere, Pcp PCP - General Family Medicine 03/10/20 11/30/21 [facility] [place] lab 08/25/21 Ervin Schroeder MD Referring Provider Family Medicine 03/24/[address] [place] [address] documented as of this encounter
--- OUTSIDE RECORDS SUMMARY | 2021-12-28 23:30 | XMS_ITS | Encounter Summary ---
:1990 Author Organization [facility] Address [address] [place] [address] Care Team Providers Name Role Phone Elsewhere, Pcp Primary Care Provider Unavailable Encounter Details Date Type Department Care Team Description 08/27/2021 Orders Only Department of Mousa, Matthew Y, Cirrhosis [facility] Gastroenterology in M.[place] ([facility]) (Primary Dx) [address] 1025 [place] [phone] Social History Tobacco Use Types Packs/Day Years [...] do you attend islam or Never 2021 mormon services? Do you belong to any clubs or No 07/17/2021 organizations such as islam groups, unions, fraInsitu Mobile or athletic groups, or school groups? 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 300 [place] [phone] (Gwendolyn rahman) 01/12/2022 Appointment Laboratory Medicine Matthew Jerome M.B.BSumaS., M.D. 1025 [place] [phone] (Gwendolyn rahman) 01/12/2022 Appointment Laboratory Medicine Adeline Frazier M.D., Ph.D. [address] [place] [phone] (Gwendolyn rahman) 01/13/2022 Telemedicine Transplant Joel Tan L.I.C.S.W., M.S. W. [address] [place] [phone] (Wo rk) 01/13/2022 Telemedicine Transplant Matthew Jerome M.B.B.S., M.D. 10[address] [place] [phone] (Wo rk) 01/13/2022 Telemedicine Transplant Adeline Frazier M.D., Ph.D. [address] [place] [phone] (Wo rk) 01/28/2022 Office Visit Gastroenterology and Matthew Jerome, Hepatology Tyrell, M.Slick. 10[address] [place] [phone] (Wo rk) Scheduled Procedures Name Priority Associated Diagnoses Date/Time ESOPHAGOGASTRODUODENOSCOPY Cirrhosis Alc oholic (HCC) Hypertension Portal (HCC) ESOPHAGOGASTRODUODENOSCOPY Cirrhosis Alc oholic (HCC) Ascites Anemia Macrocytic Thrombocytopenia (HC C) Deficiency Coagulation Acquired (HCC) documented as of this encounter Visit Diagnoses Diagnosis Cirrhosis Alcoholic (HCC) - Primary documented in this encounter Care Teams Group Supervisor Yard Relationship Specialty Start Date End Date Elsewhere, Pcp PCP - General Family Medicine 03/10/20 11/30/21 [facility] 08/25/21 Ervin Schroeder MD Referring Provider Family Medicine 03/24/[address] [place] [phone] documented as of this encounter
--- OUTSIDE RECORDS SUMMARY | 2021-12-28 23:30 | XMS_ITS | Encounter Summary ---
:1990 Author Organization [facility] Address [address] [place] [address] Care Team Providers Name Role Phone Elsewhere, Pcp Primary Care Provider Unavailable Reason for Visit Reason Comments Patient Education Encounter Details Date Type Department Care Team Description 09/03/2021 Clinical Communication Department of Loreta Vazquez ent Education Infusion Therapy in M, R.N. [place], [place] [address] [place] [address] Social History Tobacco Use Types Packs/Day Years [...] or relatives? How often do you attend bahai or Never 2021 yazidi services? 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 [address] [place] [phone] (Gwendolyn rahman) 01/12/2022 Appointment Laboratory Medicine Matthew Jerome M.B.BSumaSSuma, M.D. 10[address] [place] [phone] (Gwendolyn rahman) 01/12/2022 Appointment Laboratory Medicine Adeline Frazier M.D., Ph.D. [address] [place] [phone] ( lacey) 01/13/2022 Telemedicine Transplant Joel Tan L.I.C.S.W., M.S. W. [address] [place] [phone] ( lacey) 01/13/2022 Telemedicine Transplant Matthew eJrome M.B.B.S., MCee. [address] [place] [phone] (Wo rk) 01/13/2022 Telemedicine Transplant Adeline Frazier M.D., Ph.D. [address] [place] [phone] (Wo rk) 01/28/2022 Office Visit Gastroenterology and Matthew Jerome, Hepatology Tyrell, Lilian [address] [place] [phone] ( rk) Scheduled Procedures Name Priority [...] documented as of this encounter Care Teams Commercial Fisherman Relationship Specialty Start Date End Date Elsewhere, Pcp PCP - General Family Medicine 03/10/20 11/30/21 [facility] [place] lab 08/25/21 Ervin Schroeder MD Referring Provider Family Medicine 03/24/[address] [place] [phone] documented as of this encounter
--- OUTSIDE RECORDS SUMMARY | 2021-12-28 23:30 | XMS_ITS | Encounter Summary ---
:1990 Author Organization [facility] Address [address] [place] [address] Care Team Providers Name Role Phone Elsewhere, Pcp Primary Care Provider Unavailable Reason for Referral Transplant (Routine) - Closed Specialty Diagnoses / Procedures Referred By Contact Refer red To Contact Transplant Surgery / Warren Connor [facility] Transplant Lilian, M.P.H. [address] [place] [phone] Referral ID Status Reason Start Date Expiration Date Visits Requ ested Visits Authorized [id number] Closed 08/26/2021 08/26/2022 1 1 ransplant (Routine) - Authorized Specialty Diagnoses / Procedures Referred By Contact Refer red To Contact Transplant Surgery / Diagnoses Cirrhosis Alcoholic (HCC) Abnormal Liver Function Test Ascites Pretransplant Recipient Evaluation Exam Preoperative Exam Warren Connor [facility] Transplant Lilian, M.P.H. [address] [place] [address] 42541 Referral ID Status Reason Start Date Expiration Date Visits V isits Requested Authorized [id number] Authorized 08/25/2021 08/25/2022 1 1 utpatient (Routine) - Closed Specialty Diagnoses / Procedures Referred By Contact Refer red To Contact Diagnoses Cirrhosis Alcoholic (HCC) Abnormal Liver Function Test Ascites Pretransplant Recipient Evaluation Exam Preoperative Exam Warren Connor M.D., [facility] Procedures BMD Bone Density Spine Hips M.P.H. [address] [place] [address] [phone] Referral ID Status Reason Start Date Expiration Date Visits Requ ested Visits Authorized [id number] Closed 08/25/2021 08/25/2022 1 1 ransplant (Routine) - Closed Specialty Diagnoses / Procedures Referred By Contact Refer red To Contact Transplant Surgery / Diagnoses Cirrhosis Alcoholic (HCC) Abnormal Liver Function Test Ascites Pretransplant Recipient Evaluation Exam Preoperative Exam Warren Connor [facility] Transplant M.Jeri, M.P.H. [address] [place] [address] [phone] Referral ID Status Reason Start Date Expiration Date Visits Requ ested Visits Authorized [id number] Closed 08/25/2021 08/25/2022 1 1 ransplant (Routine) - Closed Specialty Diagnoses / Procedures Referred By Contact Refer red To Contact Transplant Surgery / Diagnoses Cirrhosis Alcoholic (HCC) Abnormal Liver Function Test Ascites Pretransplant Recipient Evaluation Exam Preoperative Exam Warren Connor [facility] Transplant M.Jeri, M.P.H. [address] [place] [address] 53784 Referral ID Status Reason Start Date Expiration Date Visits Requ ested Visits Authorized [id number] Closed 08/25/2021 08/25/2022 1 1 utpatient (Routine) - Closed Specialty Diagnoses / Procedures Referred By Contact Refer red To Contact Preventive Medicine Diagnoses Cirrhosis Alcoholic (HCC) Abnormal Liver Function Test Ascites Pretransplant Recipient Evaluation Exam Preoperative Exam Warren Connor [facility] Lilian, M.P.H. [address] [place] [address] 77783 Referral ID Status Reason Start Date Expiration Date Visits Requ ested Visits Authorized [id number] Closed 08/25/2021 08/25/2022 1 1 utpatient (Routine) - Closed Specialty Diagnoses / Procedures Referred By Contact Refer red To Contact Pulmonary Medicine / Diagnoses Cirrhosis Alcoholic (HCC) Abnormal Liver Function Test Ascites Pretransplant Recipient Evaluation Exam [facility], M.[facility].H[facility] [address] [place] [address] [phone] Referral ID Status Reason Start Date Expiration Date Visits Requ ested Visits Authorized [id number] Closed 08/25/2021 08/25/2022 1 1 utpatient (Routine) - Closed Specialty Diagnoses / Procedures Referred By Contact Refer red To Contact Diagnoses Cirrhosis Alcoholic (HCC) Abnormal Liver Function Test Ascites Pretransplant Recipient Evaluation Exam Preoperative Exam Warren Connor M.D., [facility] Procedures ECG 12 Lead M.P.H. [address] [place] [address] [phone] Referral ID Status Reason Start Date Expiration Date Visits Requ ested Visits Authorized [id number] Closed 08/25/2021 08/25/2022 1 1 utpatient (Routine) - Closed Specialty Diagnoses / Procedures Referred By Contact Refer red To Contact Diagnoses Cirrhosis Alcoholic (HCC) Abnormal Liver Function Test Ascites Pretransplant Recipient Evaluation Exam Preoperative Exam Warren Connor M.D., [facility] Procedures Short renal clearance: Iothalamate (Renal Studies Unit) M.P.H. [address] [place] [address] [phone] Referral ID Status Reason Start Date Expiration Date Visits Requ ested Visits Authorized [id number] Closed 08/25/2021 08/25/2022 1 1 Specialty Diagnoses / Procedures Referred By Contact Refer red To Contact [facility] [employer] [facility] [address] [place] [address] Referral ID Status Reason Start Date Expiration Date Visits Requ ested Visits Authorized utpatient (Routine) - Closed Specialty Diagnoses / Procedures Referred By Contact Refer red To Contact Pharmacy Diagnoses Cirrhosis Alcoholic (HCC) Abnormal Liver Function Test Ascites Pretransplant Recipient Evaluation Exam Preoperative Exam Warren Connor M.D., [facility] M.P.H. [address] [place] [address] Referral ID Status Reason Start Date Expiration Date Visits Requ ested Visits Authorized [id number] Closed 08/25/2021 08/25/2022 1 1 ransplant (Routine) - Closed Specialty Diagnoses / Procedures Referred By Contact Refer red To Contact Transplant Surgery / Diagnoses Cirrhosis Alcoholic (HCC) Abnormal Liver Function Test Ascites Pretransplant Recipient Evaluation Exam Preoperative Exam Warren Connor [facility] Transplant Lilian, M.P.H. [address] [place] [address] [phone] Referral ID Status Reason Start Date Expiration Date Visits Requ ested Visits Authorized [id number] Closed 08/25/2021 08/25/2022 1 1 ransplant (Routine) - Closed Specialty Diagnoses / Procedures Referred By Contact Refer red To Contact Transplant Surgery / Diagnoses Cirrhosis Alcoholic (HCC) Abnormal Liver Function Test Ascites Pretransplant Recipient Evaluation Exam Preoperative Exam Warren Connor [facility] Transplant Lilian, M.P.H. [address] [place] [address] 24491 Referral ID Status Reason Start Date Expiration Date Visits Requ ested Visits Authorized [id number] Closed 08/25/2021 08/25/2022 1 1 ransplant (Routine) - Closed Specialty Diagnoses / Procedures Referred By Contact Refer red To Contact Transplant Surgery / Diagnoses Cirrhosis Alcoholic (HCC) Abnormal Liver Function Test Ascites Pretransplant Recipient Evaluation Exam Preoperative Exam Warren Connor [facility] Transplant Lilian, M.P.H. [address] [place] [address] 36470 Referral ID Status Reason Start Date Expiration Date Visits Requ ested Visits Authorized [id number] Closed 08/25/2021 08/25/2022 1 1 ransplant (Routine) - Closed Specialty Diagnoses / Procedures Referred By Contact Refer red To Contact Transplant Surgery / Diagnoses Cirrhosis Alcoholic (HCC) Abnormal Liver Function Test Ascites Pretransplant Recipient Evaluation Exam Preoperative Exam Warren Connor [facility] Transplant Elizabeth.Jeri, M.P.H. [address] [place] [address] [phone] Referral ID Status Reason Start Date Expiration Date Visits Requ ested Visits Authorized [id number] Closed 08/25/2021 08/25/2022 1 1 ransplant (Routine) - Closed Specialty Diagnoses / Procedures Referred By Contact Refer red To Contact Transplant Surgery / Diagnoses Cirrhosis Alcoholic (HCC) Abnormal Liver Function Test Ascites Pretransplant Recipient Evaluation Exam Preoperative Exam Warren Connor [facility] Transplant Elizabeth.Jeri, M.P.H. [address] [place] [address] Referral ID Status Reason Start Date Expiration Date Visits Requ ested Visits Authorized [id number] Closed 08/25/2021 08/25/2022 1 1 Reason for Visit Reason Comments Referral - Liver Txp Phone screen Appointment Request (Routine) - Pending Review Specialty Diagnoses / Procedures Referred By Contact Refer red To Contact Transplant Diagnoses [facility] Procedures Referral ID Status Reason Start Date Expiration Date Visits V isits Requested Authorized [id number] Pending 08/21/2021 08/21/2022 1 1 Review Encounter Details Date Type Department Care Team Description 08/25/2021 Nurse Only Laney Canela Re ferral - Liver T[facility] M.A.N., R.N., (Phone screen) and Clinical Regeneration C.C.T. C. in [facility] [phone] [address] (Work) [place] [address] Social History Tobacco Use Types Packs/Day [...] or relatives? How often do you attend anabaptism or Never 2021 druze services? Do you belong to any clubs or No 07/17/2021 organizations such as anabaptism groups, unions, fraternal or athletic groups, or [...] or the highest technical, or vocational p [facility] degree you have received? 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 - 08/25/2021 2:00 PM CDT Informed of COVID vaccine requirement: [x] Yes [] No - Recommend 3rd dose and booster Diagnosis: ALD HCC or CCA? [] Yes [x] No Biopsy/pathology done elsewhere? [] Yes [] No [x]NA Original imaging: [] Yes [] No [x]NA Prior treatment? [] Yes [] No [x]NA Previous Transplants? [] Yes [x] No []NA If yes, Type: Date: Evaluated elsewhere? [] Yes [x] No []NA If yes, Facility: Listed? [] Yes [] No []NA Colonoscopy: [] Yes [] No [x]NA If yes, Facility: Date: Do we have records? [] Yes [] No [x]NA Have they been requested? [] Yes [] No [x]NA To be ordered during eval? [] Yes [] No [x]NA EGD: [] Yes [] No [x]NA (08/2021) If yes, Facility: Date: Do we have records? [] Yes [] No [x]NA Have they been requested? [] Yes [] No [x]NA To be ordered during eval? [] Yes [] No [x]NA Mammo: [] Yes [] No [x]NA If Yes, Facility: Date: Do we have records? [] Yes [] No [x]NA Have they been requested? [] Yes [] No [x]NA To be ordered during eval? [] Yes [] No [x]NA Pap: [x] Yes [] No []NA If Yes, Facility: Date: 4-5 years ago Hysterectomy? [] Yes [] No [] Partial (needs Pap) [] NA Do we have records? [] Yes [x] No []NA Have they been requested? [] Yes [x] No []NA To be ordered during eval? [x] Yes [] No []NA Pre-liver Transplant Anesthesia Screening Any personal or family history of adverse reactions to anesthesia (i.e. malignant hyperthermia, problems with waking up? [] Yes [x] No Problems with CT or MRI (claustrophobia, contrast allergy)? [x] Yes [] No []NA (MRI) Ascites: [x] Yes [] No Sandro: [x] Yes [] No If Yes, frequency: last one 03/2021 TIPS: [] Yes [x] No Thora: [] Yes [x] No If Yes, frequency: Hepatic Encephalopathy: [x] Yes [] No Lines or implanted device? [] Yes [x] No If yes, type of device: Diabetes? [] Yes [x] No -If yes, Type: [] Type 1 [] Type 2 - Medications: [] Insulin [] Oral []NA Dialysis? [] Yes [x] No Center: Frequency: Psychiatric History: [] Yes [] No [] Unknown If yes, [] Depression [x] Anxiety [] Hx of Abuse [] PTSD []Other: Alcohol Use: [x] Yes [] No [] Unknown Comment: 07/2020 Tobacco Use: [] Never [] Prior/Quit [x] Currently Using Type of Tobacco Use: 05/06 p daily Drug Use: [] Yes [] No Comment: Marijuana Use: [x] Yes [] No - daily Chronic Pain: [x] Yes [] No -opiod/THC Opioid Use: [x] Yes [] No Comment: daily Current living arrangement [] House [x]Apartment []Care Center []Other: Do you live alone? [] Yes [x] No Assistive devices? [] Yes [x] No If yes: [] Cane []Walker []Wheelchair []Other: Any outside assistance [x] PT/OT [x]Home Healthcare (RN couple times a week) []Other: On Oxygen?: [] Yes [x] No Drive time: 1.5hr [place] Caregiver: Lobito, significant other PCP: Dr. Roge Schroeder Facility: [facility] Location: [facility] Satellite Tv Technician: Kerry Naranjo NP /Dr. Jerome Facility: [facility] Location: [facility] Fax: Preferred lab: [facility] Lab Location: [place] Fax: Patient online messaging interest/discussed? [x] Yes [] No Comment: Additional orders needed at time of evaluation: hx eating disorder Cork Cutter Utilized: [] Yes [x] No Prior to starting the phone screen process, the following information was verbalized to educate the patient on the Evaluation Process. Received authorization for liver transplant referral. Information for Liver Transplant Candidates [id number] was reviewed with the patient via telephone call. Confirmed her interest in pursuing a liver transplant evaluation at [facility]. The patient verbalized understanding of the information and was given the opportunity to ask questions which were answered to her satisfaction. Patient agrees to proceed with the transplant evaluation and consents to HIV testing. documented in this encounter Miscellaneous Notes Addendum Note - Laney Frost M.A.N., [place], C.C.T.C. - 08/25/2021 2:00 PM CDT Addended by: LANEY FROST on: 08/26/2021 11:47 AM Modules accepted: Orders Addendum Note - Warren Connor M.D., M.P.H. - 08/25/2021 2:00 PM CDT Addended by: WARREN CONNOR on: 08/26/2021 01:48 PM Modules accepted: Orders documented in this encounter Plan of Treatment Upcoming Encounters Date Type Specialty Care Team Description 01/07/2022 Office Visit Community Internal Medicine Ranjit Red P.A.-C. [address] [place] [address] (Gwendolyn rahman) 01/12/2022 Appointment Laboratory Medicine Matthew Jerome M.B.B.S., M.D. [address] [place] [address] (Gwendolyn rahman) 01/12/2022 Appointment Laboratory Medicine Adeline Frazier M.D., Ph.D. [address] [place] [phone] (Gwendolyn rahman) 01/13/2022 Telemedicine Transplant Joel Tan L.I.C.S.W., M.S. W. [address] [place] [phone] (Wo rk) 01/13/2022 Telemedicine Transplant Matthew Jerome M.B.B.S., M.Slick. [address] [place] [phone] (Wo rk) 01/13/2022 Telemedicine Transplant Adeline Frazier M.D., Ph.D. [address] [place] [phone] (Wo rk) 01/28/2022 Office Visit Gastroenterology and Matthew Jerome, Hepatology Tyrell, Lilian [address] [place] [phone] (Wo rk) Scheduled Orders Name Type Priority Associated Diagnoses Order S chedule Short renal clearance: Procedures Routine Cirrhosis Alcoholi c Expected: 09/22/2021 Iothalamate (Renal (HCC) (Approximate), Studies Unit) Abnormal Liver Expires: 05/2022 Function Test Ascites Pretransplant Recipient Evaluation Exam Preoperative Exam ECG 12 Lead ECG Routine Cirrhosis Alcoholic Expected : 09/22/2021 (HCC) (Approximate), Abnormal Liver Expires: 05/2022 Function Test Ascites Pretransplant Recipient Evaluation Exam Preoperative Exam Scheduled Procedures Name Priority Associated Diagnoses Date/Time ESOPHAGOGASTRODUODENOSCOPY Cirrhosis Alc oholic (HCC) Hypertension Portal (HCC) ESOPHAGOGASTRODUODENOSCOPY Cirrhosis Alc oholic (HCC) Ascites Anemia Macrocytic Thrombocytopenia (HC C) Deficiency Coagulation Acquired (HCC) Scheduled Referrals Name Type Priority Associated Order Schedule Diagnoses Transplant - Outpatient Referral Routine Cirrhosis Alcoholic E xpected: Financial assessment (HCC) 09/22/2021 consult (clinic) Abnormal Liver (Approxim ate), Function Test Expires: Ascites 12/01/2022 Pretransplant Recipient Evaluation Exam Preoperative Exam Transplant - Lung Outpatient Referral Routine Cirrhosis Alcoho lic Expected: transplant consult ([facility]) 09/22/2021 (clinic) Abnormal Liver (Approximate) , Function Test Expires: Ascites 12/01/2022 Pretransplant Recipient Evaluation Exam Preoperative Exam Transplant - Medical Outpatient Referral Routine Cirrhosis Alc oholic Expected: nutrition therapy ([facility]) 09/22/2021 consult (clinic) Abnormal Liver (Approxim ate), Function Test Expires: Ascites 12/01/2022 Pretransplant Recipient Evaluation Exam Preoperative Exam Transplant - Social Outpatient Referral Routine Cirrhosis Alco holic Expected: work consult ([facility]) 09/22/2021 (clinic) Abnormal Liver (Approximate) , Function Test Expires: Ascites 12/01/2022 Pretransplant Recipient Evaluation Exam Preoperative Exam Transplant - Surgery Outpatient Referral Routine Cirrhosis Alc oholic Expected: consult (clinic) ([facility]) 09/22/2021 Abnormal Liver (Approximate) , Function Test Expires: Ascites 12/01/2022 Pretransplant Recipient Evaluation Exam Preoperative Exam Pharmacy - Outpatient Referral Routine Cirrhosis Alcoholic E xpected: Medication therapy ([facility]) 09/22/2021 management - Abnormal Liver (Approximate) , transplant consult Function Test Expires: (clinic) Ascites 12/01/2022 Pretransplant Recipient Evaluation Exam Preoperative Exam Transplant - Liver Outpatient Referral Routine Cirrhosis Alcoh olic Expected: pre education visit ([facility]) 09/22/2021 [facility] Abnormal Liver (Approximate) , Function Test Expires: Ascites 12/01/2022 Pretransplant Recipient Evaluation Exam Preoperative Exam Nicotine Dependence Outpatient Referral Routine Cirrhosis Alco holic Expected: - Counseling consult ([facility]) 10/01/2021 (clinic) Abnormal Liver (Approximate) , Function Test Expires: Ascites 12/01/2022 Pretransplant Recipient Evaluation Exam Preoperative Exam Preventive Medicine Outpatient Referral Routine Cirrhosis Alco holic Expected: - Preventive ([facility]) 10/01/2021 services consult Abnormal Liver (Approxim ate), (clinic) Function Test Expires: Ascites 12/01/2022 Pretransplant Recipient Evaluation Exam Preoperative Exam Transplant - Outpatient Referral Routine Cirrhosis Alcoholic E xpected: Psychiatry and ([facility]) 09/22/2021 Psychology consult Abnormal Liver (Approx imate), (clinic) Function Test Expires: Ascites 12/01/2022 Pretransplant Recipient Evaluation Exam Preoperative Exam Transplant - Outpatient Referral Routine Cirrhosis Alcoholic E xpected: Psychiatry and ([facility]) 09/22/2021 Psychology consult Abnormal Liver (Approx imate), (clinic) Function Test Expires: Ascites 12/01/2022 Pretransplant Recipient Evaluation Exam Preoperative Exam Transplant - Outpatient Referral Routine Cirrhosis Alcoholic E xpected: Psychiatry and (HCC) 09/22/2021, Psychology consult Abnormal Liver Expires : (clinic) Function Test 12/01/2022 Ascites Pretransplant Recipient Evaluation Exam Preoperative Exam Transplant Heart Outpatient Referral Routine Expe cted: office visit 09/22/2021, (clinic) Expires: 12/01/2022 documented as of this encounter Results BMD Bone Density Spine [...] Mineral Density (BMD) analysis perf ormed on [employer] with serial number [id number]. ? FINDINGS: Left Hip: Femur Neck: BMD [...] HIPS Bone Mineral Density (BMD) analysis perf akmed on [employer] with serial number [id number]. FINDINGS: Left Hip: Femur Neck: BMD = [...] including images and graphs, is available in [employer]. In the absence of other causes of [...] below the expected range for age. Warren Connor M.D., M.P.H. IMG DXA PROCEDURES Pulmonary Function Tests (10/07/2021 3:07 PM CDT) P athologist Signature FVC 4.04 L [facility] FVC% 111 % [facility] FVCLLN 2.88 L [facility] FEV1 3.62 L [facility] FEV1% 118 % [facility] [id number] 2.45 L [facility] FEV1/FVC 90 % [facility] FEV1/FVCLLN 73 % [facility] FEF 25-75 5.30 L/sec [facility] WQU61-63% 154 % [facility] [id number] 2.20 L/sec [facility] SVC 4.19 L [facility] RV 1.17 L [facility] RVULN 2.33 L [facility] TLC 5.36 L [facility] TLC% 111 % [facility] TLCLLN 3.47 L [facility] RV/TLC 22 % [facility] RV/TLC% 72 % [facility] RV/TLCuln 44 % [facility] DLCO 16.63 ml/min/mmHg [facility] DLCO% 77 % [facility] DLCOlln 15.76 ml/min/mmHg [facility] DLCOc 20.09 ml/min/mmHg [facility] DLCOc% 94 % [facility] VA 5.32 L [facility] VA% 115 % [facility] VAlln 3.76 L [facility] Height 159.00 [facility] Weight in Kg 59.70 [facility] BMI 23.6 [facility] Specimen (Source) Anatomical Collection Method Collection Time Re ceived Time Location / / Volume Laterality 10/07/2021 2:32 PM CDT Impressions [facility] - 10/10/2021 8:25 AM C DT TECHNICAL QUALITY: ??Good. LUNG MECHANICS: ??No airflow obstruction . ??Normal inspiratory loop. LUNG VOLUMES: ??No restriction. DIFFUSION: ??Normal diffusing capacity. SUMMARY: ??Normal Pulmonary Function Arelis ts. ?This interpretation has been electro nically signed: ??LONNY MEDINA 10/10/2021 ??08:21:50 AM? Narrative This result has an attachment that is no t available. Warren Connor M.D., M.P.H. PFT ORDERABLES Performing Organization Address City/[facility]/ZIP Code Phon e Number [facility] [address] [facility] [address] Ethyl Glucuronide Screen with Reflex, Urine (09/30/2021 8:23 AM CDT) [facility] Cloudcam Method Time Signature Ethyl Negative Cutoff: 09/30/2021 [facility] Glucuronide Scrn 500 ng/mL 11:12 AM CDT w/Reflex, U Comment: ----ADDITIONAL INFORMATION---- This test was developed and its performa nce characteristics determined by [facility] in a manner consistent with CLIA requirements. This test has not been cleared or approved by the [place] d and Drug Administration. Specimen Anatomical Collection Method Collection Time Receive d Time (Source) Location / / Volume Laterality Urine (Urine, 09/30/2021 8:23 AM 10/01/19 22 9:59 Midstream) CDT AM CDT Warren Connor M.D., M.P.H. LAB URINE ORDERABLES Performing Organization Address City/State/ZIP Code Phon e Number [facility] [address] [place], [place] [address] [place] [address] [place] [address] Laboratory Medicine and Pathology [address] [place] (ABNORMAL) Bacterial Culture, Aerobic + Susc, Urine (09/30/2021 8:23 AM CDT) Component Value Ref Test Analysis Performed At [facility] Cloudcam Range Method Time Signature Urine Culture STAPHYLOCOCCUS [...] should not be used as monotherapy Warren Connor M.D., M.P.H. LAB MICROBIOLOGY - GEN ERAL ORDERABLES Performing Organization Address City/State/ZIP Code Phon e Number [facility] - [address] [place] [phone] [facility] [place] [address] Laboratories-[facility] [address] (ABNORMAL) Drug Abuse Survey with Confirmation, Panel 9, Urine (09/30/2021 8:23 AM CDT) Component Value Ref Test Analysis Performed At [facility] Range Method Time Signature Alcohol Negative [...] Negative Cutoff: 25 ng/mL 09/30/2021 11:12 AM [facility] CDT Tetrahydrocannabinol Presumptive Positive Cutoff: 50 ng/mL 09/30/2021 11:12 AM [facility] (A) CDT Comment: This immunoassay targets [...] Its performance characteristics were determi foreign by [facility] in a manner consistent with CLIA requirements. This test has not been cleared or approved by the U.S. Food and Drug Administration . Specimen Anatomical Collection Method Collection Time Receive d Time (Source) Location / / Volume Laterality Urine (Urine, 09/30/2021 8:23 AM 10/01/19 22 Midstream) CDT 10:00 AM CDT Warren Connor M.D., M.P.H. LAB URINE ORDERABLES Performing Organization Address City/State/ZIP Code Phon e Number [facility] [address] [place] [address] SUPPORT CENTER [facility] [place] [address] Laboratory Medicine and Pathology [address] CHAPPELL Urinalysis with Microscopic: Urine, Midstream (09/30/2021 8:23 AM CDT) [facility] Method Time Signature Source Urine, Urine, 09/30/2021 [...] 10/01/19 8:23 Midstream) CDT AM CDT Warren Connor M.D., M.P.H. LAB URINE ORDERABLES Performing Organization Address City/[facility] Phon e Number [facility] - [address] [place] [address] Transplant ABO Confirmation (09/30/2021 7:43 AM CDT) P athologist Signature Transplant ABO B Pos 09/30/2021 ETRM Confirmation 11:13 AM CDT Specimen Anatomical Collection Method Collection Time Receive d Time (Source) Location / / Volume Laterality Blood (Blood, 09/30/2021 7:43 AM 10/01/19 Venous) CDT 10:06 AM CDT Warren Connor M.D., M.P.H. LAB BLOOD BANK TEST OR DERABLES Performing Organization Address [facility] Phon e Number [facility] - [address] [place] [address] (ABNORMAL) Hemoglobin A1c (09/30/2021 7:39 AM CDT) [...] 10/01/19 7:55 Venous) CDT AM CDT Warren Connor M.D., M.P.H. LAB BLOOD ADD-ON Performing Organization Address City/State/ZIP Code Phon e Number [facility] - 200 [place], [place] [address] [facility] [place] [address] Laboratories-[facility] [address] [facility] (ABNORMAL) CBC no call back, reflex T/S HGB <8 (09/30/2021 7:39 AM CDT) [facility] gist Method Time Signature Hemoglobin 8.9 (L) [...] 22 7:55 Venous) CDT AM CDT Warren Connor M.D., M.P.H. LAB BLOOD NON ADD-ON Performing Organization Address City/[facility] Phon e Number [facility] - [address] [place], [place] [address] [place] [address] [facility] [address] (ABNORMAL) Vukhr-5-Sedgvpsbfhi Proteotype S/Z by LC-MS/MS (09/30/2021 7:38 AM CDT) athologist Signature Derzz-6-Cwyrjz 211 (H) 100 - 190 10/01/2021 [facility] ypsin, S mg/dL 9:47 AM CDT Comment: ----ADDITIONAL INFORMATION---- Method: Nephelometry Interpretation S Mutation: Negative 10/02/2021 3:3 2 PM CDT [facility] Z Mutation: Negative Results most consistent with MM phenotype. Comment: ----ADDITIONAL INFORMATION---- This test was developed and its performa nce characteristics determined by [facility] in a manner consistent with CLIA requirements. This test has not been cleared or approved by the U.[place]. Meg[place] d and Drug Administration. Specimen Anatomical Collection Method Collection Time Receive d Time (Source) Location / / Volume Laterality Blood (Blood, 09/30/2021 7:38 AM 10/02/19 22 6:06 Venous) CDT AM CDT Warren Connor M.D., M.P.H. LAB BLOOD NON ADD-ON Performing Organization Address City/State/[facility] Phon e Number [facility] [address] [place]AP[place], [place] [address] SUPPORT CENTER [facility] [place] [address] Laboratory Medicine and Pathology [address] CHAPPELL Phosphatidylethanol (Peth), whole blood- Sent Out Lab (09/30/2021 7:38 AM CDT) Component Value Ref Range Test Analysis Performed Pathologis t Method Time At Signature Phosphatidylethanol NEGATIVE NEGATIVE 10/03/2021 MTI (PEth) ng/mL 10:27 PM CDT Comment: Analyzed compound: PEth 16:0/18:1. ? 2-tfgrlkrdo-8-fqcfow-ml-trbubtt-3 -phosphoethanol. ? Analysis performed by [email or web address] with ? Tandem Mass Spectrometry (LC/MS/MS). ? [...] and its performa nce characteristics determined by [employer]. It has not been c leared or approved by the Food and Drug Administration. Specimen Anatomical Collection Method Collection Time Receive d Time (Source) Location / / Volume Laterality Blood (Blood, 09/30/2021 7:38 AM 10/01/19 22 1:51 Venous) CDT PM CDT Warren Connor M.D., M.P.H. LAB BLOOD NON ADD-ON Performing Organization Address City/State/ZIP Code Phon e Number [employer] [address] [place], [place] [address] [facility] [place] [address] [address] D hCG (Human Chorionic Gonadotropin), Quantitative, (09/30/2021 7:38 AM CDT) P athologist Signature HCG, <0.5 <5 IU/L 09/30/2021 DTL Quantitative, 10:47 AM CDT , S Specimen Anatomical Collection Method Collection Time Receive d Time (Source) Location / / Volume Laterality Blood (Blood, 09/30/2021 7:38 AM 10/01/19 22 8:07 Venous) CDT AM CDT Warren Connor M.D., M.P.H. LAB BLOOD ADD-ON Performing Organization Address City/State/ZIP Code Phon e Number [facility] - [address] [place], [place] [address] [facility] [place] [address] Laboratories-[facility] [address] (ABNORMAL) AFP (Alpha-Fetoprotein), Tumor Marker (09/30/2021 7:38 AM CDT) athologist Signature Alpha-Fetoprote 14 (H) ng/mL 09/30/2021 SDSC in, Tumor 4:01 PM CDT Marker, S Comment: ----REFERENCE VALUE---- <8.4 Reference values are for non- subjects only; production of AFP elevates values in women. ----ADDITIONAL INFORMATION---- In this [place] assay AFP concen trations are <8.4 ng/mL [...] method is an immunoenzymatic assay manufactured by [employer]. and is tested on the Bitiumel DxI 800. Values obtained with different assay [...] Blood (Blood, 09/30/2021 7:38 AM 10/01/19 22 3:02 Venous) CDT PM CDT Warren Connor M.D., M.P.H. LAB BLOOD ADD-ON Performing Organization Address City/[facility] Phon e Number [facility] [address] [place], [place] [address] [facility] [place] [address] Laboratory Medicine and Pathology [address] [place] [address] Dr. CHAPPELL Vitamin E Level (09/30/2021 7:38 AM CDT) athologist Signature A-Tocopherol, 6.3 5.5 - 17.0 10/01/2021 [facility] Vitamin E mg/L 1:44 PM CDT Comment: ----ADDITIONAL INFORMATION---- This test was developed and its performa nce characteristics determined by [facility] in a manner consistent with CLIA requirements. This test has not been cleared or approved by the U.[place]. Meggan d and Drug Administration. Specimen Anatomical Collection Method Collection Time Receive d Time (Source) Location / / Volume Laterality Blood (Blood, 09/30/2021 7:38 AM 10/01/19 22 Venous) CDT 11:15 AM CDT Warren Connor M.D., M.P.H. LAB BLOOD NON ADD-ON Performing Organization Address City/[facility] Phon e Number [facility] [address] [place], [place] [address] SUPPORT [facility] [place] [address] Laboratory Medicine and Pathology [address] [place] [address] Dr. CHAPPELL 25-Hydroxyvitamin D2 and D3 (09/30/2021 7:38 AM CDT) athologist Signature 25-Hydroxy D2 20 ng/mL 09/30/2021 SDSC 11:30 PM CDT 25-Hydroxy D3 <2.0 ng/mL 09/30/2021 SDSC 11:30 PM CDT 25-Hydroxy D 20 ng/mL 09/30/2021 SDSC Total 11:30 PM CDT Comment: ----REFERENCE VALUE---- 25-HYDROXY D TOTAL (D2+D3) Optimum level s in the healthy population are 20-50, patients with bone disease may benefit from higher levels within this r vinh. ----ADDITIONAL INFORMATION---- This test was developed and its performa nce characteristics determined by [facility] in a manner consistent with CLIA requirements. This test has not been cleared or approved by the U.S. Meg[place] d and Drug Administration. Specimen Anatomical Collection Method Collection Time Receive d Time (Source) Location / / Volume Laterality Blood (Blood, 09/30/2021 7:38 AM 10/01/19 Venous) CDT 10:21 AM CDT Warren Connor M.D., M.P.H. LAB BLOOD ADD-ON Performing Organization Address [facility] Phon e Number [facility] [address] [place] [address] SU[facility] [place] [address] Laboratory Medicine and Pathology [address] [place] [address] Dr. CHAPPELL (ABNORMAL) Vitamin A Level (09/30/2021 7:38 AM CDT) athologist Signature Vitamin A 9.5 (L) 32.5 - 78.0 10/01/2021 [facility] mcg/dL 11:30 AM CDT Comment: In this sample, the retinol (vitamin A) level indicates a severe deficiency. ----ADDITIONAL INFORMATION---- This test was developed and its performa nce characteristics determined by [facility] in a manner consistent with CLIA requirements. This test has not been cleared or approved by the U.[place]. Meg[place] d and Drug Administration. Specimen Anatomical Collection Method Collection Time Receive d Time (Source) Location / / Volume Laterality Blood (Blood, 09/30/2021 7:38 AM 10/01/19 Venous) CDT 11:15 AM CDT Warren Connor M.D., M.P.H. LAB BLOOD NON ADD-ON Performing Organization Address [facility] Phon e Number [facility] [address] [place] [address] SUPPORT CENTER [facility] [place] [address] Laboratory Medicine and Pathology [address] CHAPPELL HLA Class II Typing by Low Resolution, Recipient (09/30/2021 7:38 AM CDT) [facility] Method Time Signature DRB1 - 1 DR4 Not 10/10/2021 DBB8 Equivalent Applicable 10:12 AM CDT DRB1 - 2 DR16 Not 10/10/2021 DBB8 Equivalent Applicable 10:12 AM CDT DRB1 - 1 DRB1*04:01 Not 10/10/2021 DBB8 Molecular Applicable 10:12 AM CDT DRB1 - 2 DRB1*16:02 Not 10/10/2021 DBB8 Molecular Applicable 10:12 AM CDT [id number] - 1 DR53 Not 10/10/2021 DBB8 Equivalent Applicable 10:12 AM CDT ONJ878 - 2 DR51 Not 10/10/2021 DBB8 Equivalent Applicable 10:12 AM CDT LHC939 - 1 DRB4*01:03 Not 10/10/2021 DBB8 Molecular Applicable 10:12 AM CDT OOJ000 - 2 DRB5*02:02 Not 10/10/2021 DBB8 Molecular [...] and its performa nce characteristics determined by [facility] in a manner co nsistent with CLIA requirements. This test has not been norah ared or approved by the U.S. Food and Drug Administration. CLIA: [id number] ??CLIA Boat Designer: THAIS CAR MD,PhD Specimen Anatomical Collection Method Collection Time Receive d Time (Source) Location / / Volume Laterality Blood (Blood, 09/30/2021 7:38 AM 10/01/19 8:12 Venous) CDT AM CDT Warren Connor M.D., M.P.H. LAB HLA ORDERABLES Performing Organization Address City/State/ZIP Code Phon e Number [facility] - [facility] [place], [place] [address] [facility] [address]BB[address] [place] [address] Laboratories-[facility] 200 [facility] HLA Class I Typing by Low Resolution, Recipient (09/30/2021 7:38 AM CDT) [facility] Method Time Signature A - 1 [...] and its performa nce characteristics determined by [facility] in a manner co nsistent with CLIA requirements. This test has not been norah ared or approved by the U.S. Food and Drug Administration. CLIA: [id number] ??CLIA Boat Designer: THAIS CAR MD,PhD Specimen Anatomical Collection Method Collection Time Receive d Time (Source) Location / / Volume Laterality Blood (Blood, 09/30/2021 7:38 AM 10/01/19 22 8:12 Venous) CDT AM CDT Warren Connor M.D., M.P.H. LAB HLA ORDERABLES Performing Organization Address City/State/ZIP Code Phon e Number [facility] - [address] [place], [place] [address] [facility] [address]BB[address] [place] [address] Laboratories-[facility] [address] Folate (09/30/2021 7:38 AM CDT) athologist Signature Folate, S >20.0 >=4.0 mcg/L 09/30/2021 9:31 DTL AM CDT Specimen Anatomical Collection Method Collection Time Receive d Time (Source) Location / / Volume Laterality Blood (Blood, 09/30/2021 7:38 AM 10/01/19 22 8:07 Venous) CDT AM CDT Warren Connor M.D., M.P.H. LAB BLOOD ADD-ON Performing Organization Address City/[facility]/ZIP Code Phon e Number [facility] - [address] [place], [place] [address] 05 [place] [address] (ABNORMAL) Parathyroid Hormone (PTH) (09/30/2021 7:38 AM CDT) Patholo gist Method Time Signature Parathyroid <6.0 (L) 15 - 65 09/30/2021 DTL Hormone (PTH), S pg/mL 10:47 AM CDT Specimen Anatomical Collection Method Collection Time Receive d Time (Source) Location / / Volume Laterality Blood (Blood, 09/30/2021 7:38 AM 10/01/19 22 8:07 Venous) CDT AM CDT Warren Connor M.D., M.P.H. LAB BLOOD ADD-ON Performing Organization Address City/[facility]/ZIP Code Phon e Number [facility] - 200 [place], [place] [address] 05 [place] [address] T4 (Thyroxine), Free (09/30/2021 7:38 AM CDT) P athologist Signature T4 (Thyroxine), 1.3 0.9 - 1.7 09/30/2021 DTL Free, S ng/dL 10:47 AM CDT Specimen Anatomical Collection Method Collection Time Receive d Time (Source) Location / / Volume Laterality Blood (Blood, 09/30/2021 7:38 AM 10/01/19 22 8:07 Venous) CDT AM CDT Warren Connor M.D., M.P.H. LAB BLOOD ADD-ON Performing Organization Address City/State/ZIP Code Phon e Number [facility] - 200 [place], [place] [address] 05 [place] [address] (ABNORMAL) S-TSH (Thyroid-Stimulating Hormone - Sensitive) (09/30/2021 7:38 AM CDT) athologist [facility] TSH, Sensitive 5.9 (H) 0.3 - 4.2 09/30/2021 DT mIU/L 9:15 AM CDT Specimen Anatomical Collection Method Collection Time Receive d Time (Source) Location / / Volume Laterality Blood (Blood, 09/30/2021 7:38 AM 10/01/19 22 8:07 Venous) CDT AM CDT Warren Connor M.D., M.P.H. LAB BLOOD ADD-ON Performing Organization Address City/[facility] Code Phon e Number [facility] - [address] [place] [address] Type and Screen (with reflex Antibody ID) (09/30/2021 7:38 AM CDT) [facility] gist Method Time [facility] ABORh B Pos Not 09/30/2021 ETRM applicable 11:13 AM CDT Antibody Negative Negative 09/30/2021 ETRM Screen 11:21 AM CDT Type & Screen 10/03/2021 09/30/2021 ETRM Expiration 23:59 11:13 AM CDT Testing Jcarlos DEFAULT 09/30/2021 ETRM Location 10:17 AM CDT Specimen Anatomical Collection Method Collection Time Receive d Time (Source) Location / / Volume Laterality Blood (Blood, 09/30/2021 7:38 AM 10/01/19 22 Venous) CDT 10:17 AM CDT Warren Connor M.D., M.P.H. LAB BLOOD BANK TEST OR DERABLES Performing Organization Address City/State/ZIP Code Phon e Number [facility] - [address] [place] [address] [place] [address] QuantiFERON-Tb Gold Plus, Blood (09/30/2021 7:38 AM CDT) athologist [facility] QuantiFERON-TB Negative Negative 10/01/2021 SDSC Gold Plus [...] Diagnosis of Tuberculosis in Adults and Children [Sherman NUNEZ et. al. Clin. Infect. Dis. 2017;64(2):111-115]. The reference range for the 'TB1 Ag reece s Nil Result' and 'TB2 Ag minus Nil Result' is an Inte rferon-gamma level <0.35 IU/mL. TB1 Ag minus Nil Result 0.00 IU/mL 10/01/2021 10:03 AM CDT SDSC TB2 Ag minus Nil Result 0.00 IU/mL 10/01/2021 10:03 AM CDT SDSC Mitogen minus Nil Result 5.79 IU/mL 10/01/2021 10:0 3 AM CDT SDSC Nil Result 0.00 IU/mL 10/01/2021 10:03 AM CDT SDSC Specimen Anatomical Collection Method Collection Time Receive d Time (Source) Location / / Volume Laterality Blood (Blood, 09/30/2021 7:38 AM 10/01/19 9:36 Venous) CDT AM CDT Narrative [facility] JARED R - 10/01/2021 10:03 AM CDT Specimen Information: Specimen ID: [id number] Specimen Type: Blood Specimen Collection Start Date: 10/01/19 ??7:38 AM Specimen Received Date: 09/30/2021 ??9:3 6 AM Specimen ID: [id number] Specimen Type: Blood Specimen Collection Start Date: 10/01/19 ??7:38 AM Specimen Received Date: 09/30/2021 ??9:3 6 AM Specimen ID: [id number] Specimen Type: Blood Specimen Collection Start Date: 10/01/19 ??7:38 AM Specimen Received Date: 09/30/2021 ??9:3 6 AM Specimen ID: [id number] Specimen Type: Blood Specimen Collection Start Date: 10/01/19 22 ??7:38 AM Specimen Received Date: 09/30/2021 ??9:3 6 AM Warren Connor M.D., M.P.H. LAB MICROBIOLOGY - BLO OD ORDERABLES Performing Organization Address [facility] Phon e Number [address] TA Garber[address] [place] [address] Laboratory Medicine and Pathology [address] [place] [address] Dr. CHAPPELL HCV RNA Detect / Quant, Serum (09/30/2021 7:38 AM CDT) [facility] gist Method Time Signature HCV RNA Undetected Undetected 10/01/2021 [facility] Detect/Quant, IU/mL 12:31 PM S CDT Comment: Result in log IU/mL is Undetected. ----ADDITIONAL INFORMATION---- The quantification range of this assay i s 15 to 100,000,000 IU/mL (1.18 log to 8.00 log IU/mL). Testing was performe d using the john HCV test ([employer] with the john [employer] System. Specimen Anatomical Collection Method Collection Time Receive d Time (Source) Location / / Volume Laterality Blood (Blood, 09/30/2021 7:38 AM 10/01/19 Venous) CDT 10:15 AM CDT Warren Connor M.D., M.P.H. LAB MICROBIOLOGY - BLO OD ORDERABLES Performing Organization Address [facility] Phon e Number [address] TA Garber[address] [place] [address] Laboratory Medicine and Pathology [address] [place] [address] Dr. CHAPPELL HCV Ab Scrn w/Reflex to HCV PCR, Serum (09/30/2021 7:38 AM CDT) P athologist Signature HCV Ab Screen, Negative Negative 09/30/2021 [facility] S 2:11 PM CDT Comment: Kvjauv-uo-vkwfpu ratio is <1.00 . Specimen Anatomical Collection Method Collection Time Receive d Time (Source) Location / / Volume Laterality Blood (Blood, 09/30/2021 7:38 AM 10/01/19 22 Venous) CDT 10:15 AM CDT Warren Connor M.D., M.P.H. LAB MICROBIOLOGY - BLO OD ORDERABLES Performing Organization Address [facility] Phon e Number [facility] [address] [place] [address] [facility] [place] [address] Laboratory Medicine and Pathology [address] [place] [address] Dr. CHAPPELL HBc Total Ab Scrn, S (09/30/2021 7:38 AM CDT) athologist Signature HBc Total Ab Negative Negative 09/30/2021 [facility] Scrn, S 2:11 PM CDT Specimen Anatomical Collection Method Collection Time Receive d Time (Source) Location / / Volume Laterality Blood (Blood, 09/30/2021 7:38 AM 10/01/19 22 Venous) CDT 10:15 AM CDT Warren Connor M.D., M.P.H. LAB MICROBIOLOGY - BLO OD ORDERABLES Performing Organization Address [facility] Phon e Number [place] [address] [place] [address] Laboratory Medicine and Pathology [address] [place] [address] Dr. CHAPPELL HBs Antibody Scrn, S (09/30/2021 7:38 AM CDT) athologist Signature HBs Antibody Positive 09/30/2021 [facility] Scrn, S 2:20 PM CDT Comment: Patient is considered to be immune to in fection with HBV. ----REFERENCE VALUE---- Unvaccinated: Negative Vaccinated: Positive HBs Antibody, Quantitative, S 15.2 mIU/mL 09/30/2021 2:20 PM CDT [facility] Comment: ----REFERENCE VALUE---- Unvaccinated: <5.0 Vaccinated: >=12.0 Specimen Anatomical Collection Method Collection Time Receive d Time (Source) Location / / Volume Laterality Blood (Blood, 09/30/2021 7:38 AM 10/01/19 22 Venous) CDT 10:15 AM CDT Warren Connor M.D., M.P.H. LAB MICROBIOLOGY - BLO OD ORDERABLES Performing Organization Address [facility] Phon e Number [facility] [address] [place], [place] [address] [place] [address] Laboratory Medicine and Pathology [address] [place] [address] Dr. CHAPPELL Hepatitis A IgM Ab, Serum (09/30/2021 7:38 AM CDT) athologist Signature Hepatitis A Negative Negative 09/30/2021 [facility] IgM Ab, S 1:17 PM CDT Comment: [...] 22 Venous) CDT 10:14 AM CDT Warren Connor M.D., M.P.HSuma LAB MICROBIOLOGY - BLO OD ORDERABLES Performing Organization Address [facility] Phon e Number [address] [place], [place] [address] [place] [address] Laboratory Medicine and Pathology [address] [place] [address] Dr. CHAPPELL Hepatitis A IgG Ab, Serum (09/30/2021 7:38 AM CDT) athologist Signature Hepatitis A Negative 09/30/2021 [facility] IgG Ab, S 1:17 PM CDT Comment: Result indicates no past exposure or imm unity to hepatitis A infection. ?? ----REFERENCE VALUE---- Unvaccinated: Negative Vaccinated: Positive Specimen Anatomical Collection Method Collection Time Receive d Time (Source) Location / / Volume Laterality Blood (Blood, 09/30/2021 7:38 AM 10/01/19 22 Venous) CDT 10:14 AM CDT Warren Connor M.D., M.P.H. LAB MICROBIOLOGY - BLO OD ORDERABLES Performing Organization Address [facility]/ZIP [facility] Phon e Number [facility] [address] [place], [place] [address] [place] [address] Laboratory Medicine and Pathology [address] [place] [address] Dr. CHAPPELL HIV-1/-2 Ag and Ab Screen, Plasma (09/30/2021 7:38 AM CDT) athologist Signature HIV-1/-2 Ag Negative Negative 09/30/2021 [facility] and Ab Screen, 1:16 PM CDT P Comment: Negative result does not rule out HIV in fection. If exposure to HIV infection occurred <14 d ays ago, contact the laboratory to request additi on of HIV-1 RNA detection / quantification test (HIV QN). Specimen Anatomical Collection Method Collection Time Receive d Time (Source) Location / / Volume Laterality Blood (Blood, 09/30/2021 7:38 AM 10/01/19 Venous) CDT 10:14 AM CDT Warren Connor M.D., M.P.H. LAB MICROBIOLOGY - BLO OD ORDERABLES Performing Organization Address [facility] Phon e Number [facility] [address] [place], [place] [address] [facility] [place] [address] Laboratory Medicine and Pathology [address] CHAPPELL Phosphorus Inorganic (09/30/2021 7:38 AM CDT) athologist Signature Phosphorus 3.4 2.5 - 4.5 09/30/2021 DTL (Inorganic), S mg/dL 10:47 AM CDT Specimen Anatomical Collection Method Collection Time Receive d Time (Source) Location / / Volume Laterality Blood (Blood, 09/30/2021 7:38 AM 10/01/19 22 8:07 Venous) CDT AM CDT Warren Connor M.D., M.P.H. LAB BLOOD ADD-ON Performing Organization Address City/State/[facility] Phon e Number [facility] - [address] [place], [place] [address] [place] [address] Laboratories-[facility] [address] [facility] [address] Lipid Panel (09/30/2021 7:38 AM CDT) athologist [...] 22 8:07 Venous) CDT AM CDT Warren Connor M.D., M.P.H. LAB BLOOD ADD-ON Performing Organization Address City/[facility] Code Phon e Number [facility] - [address] [place], [place] [address] [facility] [place] [address] Laboratories-[facility] [address] [facility] (ABNORMAL) GGT (Gamma-Glutamyltransferase) (09/30/2021 7:38 AM CDT) Patholo gist Method Time Signature Gamma 52 (H) 5 - 36 09/30/2021 DTL Glutamyltransferase U/L 10:47 AM (GGT), S CDT Specimen Anatomical Collection Method Collection Time Receive d Time (Source) Location / / Volume Laterality Blood (Blood, 09/30/2021 7:38 AM 10/01/19 22 8:07 Venous) CDT AM CDT Warren Connor M.D., M.P.H. LAB BLOOD ADD-ON Performing Organization Address City/State/ZIP Code Phon e Number [facility] - [address] [place], [place] [address] [facility] [place] [address] Laboratories-[facility] 200 [facility] (ABNORMAL) Hepatic Function Panel (09/30/2021 7:38 AM CDT) Patholo gist Method Time Signature Bilirubin, Total, S 12.1 (H) <=1.2 09/30/2021 DTL mg/dL 8:52 AM CDT Bilirubin, Direct, S 6.4 (H) 0.0 - 0.3 09/30/2021 DTL mg/dL 8:52 AM CDT Aspartate 78 (H) 8 - 43 09/30/2021 DTL Aminotransferase U/L 8:52 AM CDT (AST), S Alanine 34 7 - 45 09/30/2021 DTL Aminotransferase U/L 8:52 AM CDT (ALT), S Alkaline 205 (H) 35 - 104 09/30/2021 DTL Phosphatase, S U/L 8:52 AM CDT Albumin, S 3.7 3.5 - 5.0 09/30/2021 DTL g/dL 8:52 AM CDT Protein, Total, S 6.0 (L) 6.3 - 7.9 09/30/2021 DTL g/dL 8:52 AM CDT Specimen Anatomical Collection Method Collection Time Receive d Time (Source) Location / / Volume Laterality Blood (Blood, 09/30/2021 7:38 AM 10/01/19 8:08 Venous) CDT AM CDT Warren Connor M.D., M.P.H. LAB BLOOD ADD-ON Performing Organization Address City/State/[facility] Code Phon e Number [facility] - [address] [place], [place] [address] [facility] [place] [address] Laboratories-[facility] 200 [facility] (ABNORMAL) Basic Metabolic Panel (09/30/2021 7:38 AM CDT) P athologist Signature Potassium, S 4.3 3.6 - 5.2 09/30/2021 DTL mmol/L 8:52 AM CDT Sodium, S 126 (L) 135 - 145 09/30/2021 DTL mmol/L 8:52 AM CDT Chloride, S 91 (L) 98 - 107 09/30/2021 DTL mmol/L 8:52 AM CDT Bicarbonate, S 24 22 - 29 09/30/2021 DTL mmol/L 8:52 AM CDT Anion Gap 11 7 - 15 09/30/2021 DTL 8:52 AM CDT BUN (Blood Urea 13 6 - 21 09/30/2021 DTL Nitrogen), S mg/dL 8:52 AM CDT Creatinine 0.74 0.59 - 09/30/2021 DTL 1.04 mg/dL 10:29 AM CDT eGFR-Non >90 >=60 09/30/2021 DTL Black/ mL/min/BSA 10:29 AM CDT Moldovan Comment: ----ADDITIONAL INFORMATION---- Estimated GFR calculated using the 2009 CKD_EPI creatinine equation. eGFR-Black/ >90 >=60 mL/min/BSA 2021 10:29 AM CDT DTL Comment: ----ADDITIONAL INFORMATION---- Estimated GFR calculated using the 2009 CKD_EPI creatinine equation. Calcium, Total, S 9.0 8.6 - 10.0 mg/dL 09/30/2021 8:52 AM CDT DTL Glucose, S 107 70 - 140 mg/dL 09/30/2021 8:52 AM CDT D TL Specimen Anatomical Collection Method Collection Time Receive d Time (Source) Location / / Volume Laterality Blood (Blood, 09/30/2021 7:38 AM 10/01/19 8:08 Venous) CDT AM CDT Warren Connor M.D., M.P.H. LAB BLOOD ADD-ON Performing Organization Address City/State/ZIP Code Phon e Number [facility] - [address] [place], [place] [address] [facility] [place] [address] Laboratories-[facility] [address] Rubella Antibodies, IgG (09/30/2021 7:37 AM CDT) P athologist Signature Rubella Ab, Positive 09/30/2021 [facility] IgG, S 11:25 AM CDT Comment: Results suggest response to immunization or prior exposure to the virus. ----REFERENCE VALUE---- Vaccinated: Positive (>=1.0 AI) Unvaccinated: Negative (<=0.7 AI) Rubella IgG Antibody Index 5.9 09/30/2021 11 :25 AM CDT [facility] Specimen Anatomical Collection Method Collection Time Receive d Time (Source) Location / / Volume Laterality Blood (Blood, 09/30/2021 7:37 AM 10/01/19 Venous) CDT 10:37 AM CDT Warren Connor M.D., M.P.H. LAB MICROBIOLOGY - BLO OD ORDERABLES Performing Organization Address [facility] Phon e Number [facility] [address] [place] [address] [facility] [place] [address] Laboratory Medicine and Pathology [address] [place] [address] Dr. CHAPPELL Measles (Rubeola) Ab, IgG (09/30/2021 7:37 AM CDT) athologist Signature Measles Positive 09/30/2021 [facility] (Rubeola) Ab, 11:25 AM CDT IgG, S Comment: Results suggest response to immunization or prior exposure to the virus. ----REFERENCE VALUE---- Vaccinated: Positive (>=1.1 AI) Unvaccinated: Negative (<=0.8 AI) Measles IgG Antibody Index >8.0 09/30/2021 11 :25 AM CDT [facility] Specimen Anatomical Collection Method Collection Time Receive d Time (Source) Location / / Volume Laterality Blood (Blood, 09/30/2021 7:37 AM 10/01/19 22 Venous) CDT 10:37 AM CDT Warren Connor M.D., M.P.H. LAB MICROBIOLOGY - BLO OD ORDERABLES Performing Organization Address City/[facility] Phon e Number [facility] [address] [place], [place] [address] [facility] [place] [address] Laboratory Medicine and Pathology [address] [place] [address] Dr. CHAPPELL (ABNORMAL) Zinc (09/30/2021 7:37 AM CDT) P athologist Signature Zinc, S 0.39 (L) 0.66 - 1.10 09/30/2021 [facility] mcg/mL 12:56 PM CDT Comment: ----ADDITIONAL INFORMATION---- This test was developed and its performa nce characteristics determined by [facility] in a manner consistent with CLIA requirements. This test has not been cleared or approved by the [place] d and Drug Administration. Specimen Anatomical Collection Method Collection Time Receive d Time (Source) Location / / Volume Laterality Blood (Blood, 09/30/2021 7:37 AM 10/01/19 Venous) CDT 10:12 AM CDT Warren Connor M.D., M.P.H. LAB BLOOD NON ADD-ON Performing Organization Address [facility] Phon e Number [facility] [address] [place] [phone] [facility] [place] [address] Laboratory Medicine and Pathology [address] [place] [address] Dr. CHAPPELL Toxoplasma gondii Antibody, IgG (09/30/2021 7:37 AM CDT) Analysis Performed At Patho logist Time Signature Toxoplasma Ab, Negative Negative 09/30/2021 [facility] IgG, S 11:25 AM CDT Toxoplasma IgG <3 IU/mL 09/30/2021 [facility] Value 11:25 AM CDT Comment: ----REFERENCE VALUE---- <=9 IU/mL (Negative) 10-11 IU/mL (Equivocal) >=12 IU/mL (Positive) Specimen Anatomical Collection Method Collection Time Receive d Time (Source) Location / / Volume Laterality Blood (Blood, 09/30/2021 7:37 AM 10/01/19 Venous) CDT 10:37 AM CDT Warren Connor M.D., M.P.H. LAB MICROBIOLOGY - BLO OD ORDERABLES Performing Organization Address City/[facility] Phon e Number [facility] [address] [place], [place] [address] [facility] [place] [address] Laboratory Medicine and Pathology [address] [place] [address] Dr. CHAPPELL Mumps Ab, IgG (09/30/2021 7:37 AM CDT) P athologist Signature Mumps Ab, IgG, Positive 09/30/2021 [facility] S 11:25 AM CDT Comment: Results suggest response to immunization or prior exposure to the virus. ----REFERENCE VALUE---- Vaccinated: Positive (>=1.1 AI) Unvaccinated: Negative (<=0.8 AI) Mumps IgG Antibody Index 6.1 09/30/2021 11:2 5 AM CDT [facility] Specimen Anatomical Collection Method Collection Time Receive d Time (Source) Location / / Volume Laterality Blood (Blood, 09/30/2021 7:37 AM 10/01/19 Venous) CDT 10:37 AM CDT Warren Connor M.D., M.P.H. LAB MICROBIOLOGY - BLO OD ORDERABLES Performing Organization Address [facility] Phon e Number [place] [phone] [place] [address] Laboratory Medicine and Pathology [address] [place] [address] Dr. CHAPPELL Syphilis IgG w/ Reflex, EIA, S (09/30/2021 7:37 AM CDT) [facility] Time Signature Syphilis IgG Nonreactive Nonreactive 10/01/2021 [facility] w/ Reflex, 3:00 PM CDT EIA, S Comment: No serologic evidence of infection with T. pallidum (syphilis). ??Repeat testing may be cons idered in patients with suspected acute or primary syphilis in 2-4 weeks. For additional information on interpreta tion of the syphilis reverse algorithm and resul ts, see: [email or web address] df Specimen Anatomical Collection Method Collection Time Receive d Time (Source) Location / / Volume Laterality Blood (Blood, 09/30/2021 7:37 AM 10/01/19 Venous) CDT 10:12 AM CDT Warren Connor M.D., M.P.H. LAB MICROBIOLOGY - BLO OD ORDERABLES Performing Organization Address [facility] Phon e Number [address] [place] [phone] [facility] [place] [address] Laboratory Medicine and Pathology [address] [place] [address] Dr. CHAPPELL EBV Ab Profile (09/30/2021 7:37 AM CDT) Patholo gist Method Time Signature EBV VCA IgM Ab, S Negative Negative 09/30/2021 [facility] 11:25 AM CDT EBV VCA IgG Ab, S Positive Negative 09/30/2021 [facility] 11:25 AM CDT EBNA Ab, S Positive Negative 09/30/2021 [facility] 11:25 AM CDT Interpretation SEE COMMENT 09/30/2021 [facility] 11:25 AM CDT Comment: Results suggest past [...] 10/01/19 22 Venous) CDT 10:37 AM CDT aWrren Connor M.D., M.P.H. LAB MICROBIOLOGY - BLO OD ORDERABLES Performing Organization Address City/State/ZIP Code Phon e Number [facility] [address]PE[address] [place], [place] [address] [facility] [place] [address] Laboratory Medicine and Pathology [address] CHAPPELL Varicella-Zoster Ab, IgM and IgG (09/30/2021 7:37 AM CDT) athologist Signature Varicella-Zost Positive 09/30/2021 [facility] er Ab, IgG, S 11:25 AM CDT Comment: Results suggest response to immunization or prior exposure to the virus. ----REFERENCE VALUE---- Vaccinated: Positive (>=1.1 AI) Unvaccinated: Negative (<=0.8 AI) Varicella IgG Antibody Index 3.9 09/30/2021 11:25 AM CDT [facility] Varicella-Zoster Ab, IgM, S Negative Negative 10/01/2021 2 :23 PM CDT [facility] Specimen Anatomical Collection Method Collection Time Receive d Time (Source) Location / / Volume Laterality Blood (Blood, 09/30/2021 7:37 AM 10/01/19 22 Venous) CDT 10:37 AM CDT Warren Connor M.D., M.P.H. LAB MICROBIOLOGY - BLO OD ORDERABLES Performing Organization Address City/State/ZIP Code Phon e Number [facility] [address] [place] [address] [facility] [place] [address] Laboratory Medicine and Pathology [address] CHAPPELL HSV Types 1 and 2 Ab, IgG (09/30/2021 7:37 AM CDT) P athologist Signature HSV Type 1 Ab, Negative Negative 09/30/2021 [facility] IgG, S 11:25 AM CDT HSV Type 2 Ab, Negative Negative 09/30/2021 [facility] IgG, S 11:25 AM CDT Specimen Anatomical Collection Method Collection Time Receive d Time (Source) Location / / Volume Laterality Blood (Blood, 09/30/2021 7:37 AM 10/01/19 22 Venous) CDT 10:37 AM CDT Warren Connor M.D., M.P.H. LAB MICROBIOLOGY - BLO OD ORDERABLES Performing Organization Address City/State/ZIP Code Phon e Number [facility] [address] [place] [address] [place] [address] Laboratory Medicine and Pathology [address] [place] [address] Dr. CHAPPELL Cytomegalovirus Ab, IgM and IgG (09/30/2021 7:37 AM CDT) Patholo gist Method Time Signature Cytomegalovirus Ab, Negative Negative 09/30/2021 [facility] IgM, S 11:25 AM CDT Cytomegalovirus Ab, Negative Negative 09/30/2021 [facility] IgG, S 11:25 AM CDT Specimen Anatomical Collection Method Collection Time Receive d Time (Source) Location / / Volume Laterality Blood (Blood, 09/30/2021 7:37 AM 10/01/19 22 Venous) CDT 10:37 AM CDT Warren Connor M.D., M.P.H. LAB MICROBIOLOGY - BLO OD ORDERABLES Performing Organization Address City/State/ZIP Code Phon e Number [facility] [address] [place], [place] [address] [facility] [address] Laboratory Medicine and Pathology [address] CHAPPELL (ABNORMAL) Prothrombin Time (PT) (09/30/2021 7:37 AM CDT) [facility] gist Method Time Signature Prothrombin 28.8 (H) 9.4 - 12.5 09/30/2021 DTL Time, P sec 8:20 AM CDT INR 2.6 0.9 - 1.1 09/30/2021 DTL 8:20 AM CDT Comment: ----ADDITIONAL INFORMATION---- Standard intensity warfarin therapeutic range: 2.0 to 3.0 ?? High intensity warfarin therapeutic rang e: 2.5 to 3.5 Specimen Anatomical Collection Method Collection Time Receive d Time (Source) Location / / Volume Laterality Blood (Blood, 09/30/2021 7:37 AM 10/01/19 7:54 Venous) CDT AM CDT Warren Connor M.D., M.P.H. LAB BLOOD ADD-ON Performing Organization Address City/State/ZIP Code Phon e Number [facility] - [address] [place], [place] [address] [facility] [place] [address] Laboratories-[facility] [address] documented in this encounter Visit Diagnoses Diagnosis Cirrhosis Alcoholic (HCC) - Primary Fatty Liver Abnormal Liver Function Test Ascites Pretransplant Recipient Evaluation Exam Preoperative Exam Cirrhosis Alcoholic (HCC) Abnormal Liver Function Test Ascites Pretransplant Recipient Evaluation Exam Preoperative Exam Cirrhosis Alcoholic (HCC) Abnormal Liver Function Test Ascites Pretransplant Recipient Evaluation Exam Preoperative Exam documented in this encounter Care Teams Bulk Filler Relationship Specialty Start Date End Date Elsewhere, Pcp PCP - General Family Medicine 03/10/20 11/30/21 [facility] [place] [facility] 08/25/21 Ervin Schroeder MD Referring Provider Family Medicine 03/24/[address] [place] [address] documented as of this encounter
--- OUTSIDE RECORDS SUMMARY | 2021-12-28 23:30 | XMS_ITS | Encounter Summary ---
:1990 Author Organization [facility] Address [address] [place] [address] Care Team Providers Name Role Phone Elsewhere, Pcp Primary Care Provider Unavailable Encounter Details Date Type Department Care Team Description 09/01/2021 Clinical Communication Department of [facility] in [place]. [address] [place] [phone] Social History Tobacco Use Types Packs/Day Years [...] or relatives? How often do you attend yazidi or Never 2021 orthodoxy services? 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 Marilla is wondering if there is a day in which you would see this patient after they have all the testing. documented in this encounter Plan of Treatment Upcoming Encounters Date Type Specialty Care Team Description 01/07/2022 Office Visit Community Internal Medicine Ranjit Red P.A.-C. [address] [facility] ADI [place]IAGUA [phone] (Wo rk) 01/12/2022 Appointment Laboratory Medicine Matthew Jerome M.B.BSumaS., MCee. [address] [place] [phone] (Wo rk) 01/12/2022 Appointment Laboratory Medicine Adeline Frazier M.D., Ph.D. [address] [place] [address] [phone] (Wo rk) 01/13/2022 Telemedicine Transplant Joel Tan L.I.C.S.WSuma, M.S. W. [address] [place] [phone] (Wo rk) 01/13/2022 Telemedicine Transplant Matthew Jerome M.B.B.S., Callie. [address] [place] [phone] (Gwendolyn rk) 01/13/2022 Telemedicine Transplant Adeline Frazier M.D., Ph.D. [address] [place] [address] [phone] (Gwendolyn rk) 01/28/2022 Office Visit Gastroenterology and Matthew Jerome, Hepatology VikBGraeme, MCee. [address] [place] [phone] (Gwendolyn rahman) Scheduled Procedures Name Priority [...] documented as of this encounter Care Teams Cow Washer Relationship Specialty Start Date End Date Elsewhere, Pcp PCP - General Family Medicine 03/10/20 11/30/21 [facility] [place] [facility] 08/25/21 Ervin Schroeder MD Referring Provider Family Medicine 03/24/[address] [place] [phone] documented as of this encounter
--- OUTSIDE RECORDS SUMMARY | 2021-12-28 23:30 | XMS_ITS | Encounter Summary ---
:1990 Author Organization [facility] Address [address] [place] [address] Care Team Providers Name Role Phone Elsewhere, Pcp Primary Care Provider Unavailable Encounter Details Date Type Department Care Team Description 08/31/2021 Nurse Triage Department of [facility] Naila Walters R.N. Medicine, [facility], in [address] [place] [address] [place] [phone] [place] [address] [phone] Social History Tobacco Use Types Packs/Day Years [...] do you attend holiness or Never 2021 yarsanism services? 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 - 08/31/2021 10:46 AM CDT Patient reports receiving a text message from [place] [facility] regarding her recent positive Covid test. The text provided a link which asked for a code. Patient is seeking more information regarding code. Unable to answer question at this time. Patient denies any worsening symptoms for triage at this time. Patient will check her email for more information from the [facility]. documented in this encounter Plan of Treatment Upcoming Encounters Date Type Specialty Care Team Description 01/07/2022 Office Visit [facility] Ranjit Red P.A.-C. [address] [place] [address] [phone] (Wo rk) 01/12/2022 Appointment Laboratory Medicine Matthew Jerome M.B.BSumaSSuma, MCee. [address] [place] [phone] (Wo rk) 01/12/2022 Appointment Laboratory Medicine Adeline Frazier M.D., Ph.D. [address] [place] [address] [phone] (Wo rk) 01/13/2022 Telemedicine Transplant Joel Tan L.I.C.S.W., M.S. W. [address] [place] [phone] (Wo rk) 01/13/2022 Telemedicine Transplant Matthew Jerome M.B.B.S., Callie. [address] [place] [address] [phone] (Gwendolyn rk) 01/13/2022 Telemedicine Transplant Adeline Frazier M.D., Ph.D. [address] [place] [address] [phone] (Wo rk) 01/28/2022 Office Visit Gastroenterology and Matthew Jerome, Hepatology VikBGraeme, MCee. [address] [place] [phone] (Gwendolyn rk) Scheduled Procedures Name Priority [...] documented as of this encounter Care Teams Sql Data Architect Relationship Specialty Start Date End Date Elsewhere, Pcp PCP - General Family Medicine 03/10/20 11/30/21 [facility] [place] [facility] 08/25/21 Ervin Schroeder MD Referring Provider Family Medicine 03/24/[address] [place] [phone] documented as of this encounter
--- OUTSIDE RECORDS SUMMARY | 2021-12-28 23:30 | XMS_ITS | Encounter Summary ---
:1990 Author Organization [facility] Address [address] [place] [address] Care Team Providers Name Role Phone Elsewhere, Pcp Primary Care Provider Unavailable Reason for Referral Appointment Request (Routine) - Closed Specialty Diagnoses / Procedures Referred By Contact Refer red To Contact Diagnoses Cirrhosis Alcoholic (HCC) Ascites Anemia Macrocytic Thrombocytopenia (HCC) Deficiency Coagulation Acquired (HCC) Kerry Naranjo APRN, Procedures Prothrombin Time (PT) M.S.N., R.N. [address] [place] [phone] Referral ID Status Reason Start Date Expiration Date Visits Requ ested Visits Authorized [id number] Closed 07/07/2021 07/07/2022 1 Reason for Visit Appointment Request (Routine) - Closed Specialty Diagnoses / Procedures Referred By Contact Refer red To Contact Diagnoses Cirrhosis Alcoholic (HCC) Ascites Anemia Macrocytic Thrombocytopenia (HCC) Deficiency Coagulation Acquired (HCC) Jose A, Kerry S, GAS CUTTING MACHINE OPERATOR, Procedures Prothrombin Time (PT) JoshuaSGabby, R.N. [address] [place] [address] Referral ID Status Reason Start Date Expiration Date Visits Requ ested Visits Authorized [id number] Closed 07/07/2021 07/07/2022 1 Encounter Details Date Type Department Care Team Description 08/28/2021 Hospital Encounter Department of Kerry Naranjoos is Alcoholic ([facility]); Laboratory Medicine S, GAS CUTTING MACHINE OPERATOR, Ascites; in Destiny P[place]agua, R.N. Anemia Macrocytic; [place] [address] [facility] Thrombocytopenia (HCC); [address] [place], [place] Deficiency Coagulation Acqui red ([facility]) [place] [address] [phone] Social History Tobacco Use Types Packs/Day Years [...] do you attend muslim or Never 2021 hoahaoism services? 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 [address] [place] [address] ADI PANIAGUA [phone] (Wo rk) 01/12/2022 Appointment Laboratory Medicine Matthew Jerome M.B.B.S., MCee. [address] [place] [phone] (Wo rk) 01/12/2022 Appointment Laboratory Medicine Adeline Frazier M.D., Ph.D. [address] [place] [phone] (Wo rk) 01/13/2022 Telemedicine Transplant Joel Tan L.I.C.SaZra, M.S. W. [address] [place] [phone] (Wo rk) 01/13/2022 Telemedicine Transplant Matthew Jerome M.B.B.S., MCee. [address] [place] [phone] (Wo rk) 01/13/2022 Telemedicine Transplant Adeline Frazier M.D., Ph.D. [address] [place] [phone] (Wo rk) 01/28/2022 Office Visit Gastroenterology and Matthew Jerome, Hepatology FredySSuma, MJules [address] [place] [phone] (Wo rk) Scheduled Procedures Name Priority Associated Diagnoses Date/Time ESOPHAGOGASTRODUODENOSCOPY Cirrhosis Alc oholic (HCC) Hypertension Portal (HCC) ESOPHAGOGASTRODUODENOSCOPY Cirrhosis Alc oholic (HCC) Ascites Anemia Macrocytic Thrombocytopenia (HC C) Deficiency Coagulation Acquired (HCC) documented as of this encounter Procedures Procedure Name Priority Date/Time Associated Diagnosis Comme nts PROTHROMBIN TIME Routine 08/28/2021 5:01 PM Cirrhosis Alcoholi c Results for this (PT), P CDT (HCC) procedure are in Ascites the results Anemia Macrocyti c section. Thrombocytopenia (HCC) Deficiency Coagulation Acquired (HCC) documented in this encounter Results (ABNORMAL) Prothrombin Time (PT) (08/28/2021 5:01 PM CDT) [facility] Method Time Signature Prothrombin 25.9 (H) 9.4 - 12.5 08/28/2021 OWAT Time, P sec 6:17 PM CDT INR 2.2 0.9 - 1.1 08/28/2021 OWAT 6:17 PM CDT Comment: ----ADDITIONAL INFORMATION---- Standard intensity warfarin therapeutic range: 2.0 to 3.0 ?? High intensity warfarin therapeutic rang e: 2.5 to 3.5 Specimen Anatomical Collection Method Collection Time Receive d Time (Source) Location / / Volume Laterality Blood (Blood, 08/28/2021 5:01 PM 08/29/19 22 6:01 Venous) CDT PM CDT Joshua Newsome APRNSSumaN., R.N. LAB BLOOD ADD-ON Performing Organization Address City/State/ZIP Code Phon e Number [facility] [address] [place] [address] [place] [address] System in [place] [address] documented in this encounter Visit Diagnoses Diagnosis Cirrhosis Alcoholic (HCC) Ascites Anemia Macrocytic Thrombocytopenia (HCC) Deficiency Coagulation Acquired (HCC) documented in this encounter Care Teams Electronic Calibration Technician Relationship Specialty Start Date End Date Elsewhere, Pcp PCP - General Family Medicine 03/10/20 11/30/21 [facility] [place] [facility] 08/25/21 Ervin Schroeder MD Referring Provider Family Medicine 03/24/[address] [place] [address] documented as of this encounter
--- OUTSIDE RECORDS SUMMARY | 2021-12-28 23:30 | XMS_ITS | Encounter Summary ---
:1990 Author Organization [facility] Address [address] [place] [address] Care Team Providers Name Role Phone Elsewhere, Pcp Primary Care Provider Unavailable Encounter Details Date Type Department Care Team Description 08/29/2021 Orders Only Department of Mousa, Matthew Y, Deficiency C oagulation Acquired (HCC) (Primary Dx); Gastroenterology in Joshua Santillan Cirrhosis Alcoholic (HCC) [place], [place] 1025 [facility] [address] [place] [phone] Social History Tobacco Use Types Packs/Day Years [...] do you attend gnosticism or Never 2021 buddhism services? Do you belong to any clubs or No 07/17/2021 organizations such as gnosticism groups, unions, [email or web address] or athletic groups, or school groups? 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 [address] [place] [phone] (Gwendolyn rahman) 01/12/2022 Appointment Laboratory Medicine Matthew Jerome M.B.B.S., M.D. [address] [place] [phone] (Gwendolyn rahman) 01/12/2022 Appointment Laboratory Medicine Adeline Frazier M.D., Ph.D. [address] [place] [phone] (Gwendolyn rahman) 01/13/2022 Telemedicine Transplant Joel Tan L.I.C.S.W., M.S. W. [address] [place] [phone] (Wo rk) 01/13/2022 Telemedicine Transplant Matthew Jerome M.B.B.S., M.D. [address] [place] [phone] (Wo rk) 01/13/2022 Telemedicine Transplant Adeline Frazier M.D., Ph.D. [address] [place] [phone] (Wo rk) 01/28/2022 Office Visit Gastroenterology and Matthew Jerome, Hepatology Tyrell, M.Jeri [address] [place] [phone] (Wo rk) Scheduled Procedures Name Priority Associated Diagnoses Date/Time ESOPHAGOGASTRODUODENOSCOPY Cirrhosis Alc oholic (HCC) Hypertension Portal (HCC) ESOPHAGOGASTRODUODENOSCOPY Cirrhosis Alc oholic (HCC) Ascites Anemia Macrocytic Thrombocytopenia (HC C) Deficiency Coagulation Acquired (HCC) documented as of this encounter Visit Diagnoses Diagnosis Deficiency Coagulation Acquired (HCC) - Primary Cirrhosis Alcoholic (HCC) documented in this encounter Care Teams Ticker Wirer Relationship Specialty Start Date End Date Elsewhere, Pcp PCP - General Family Medicine 03/10/20 11/30/21 [facility] [place] [facility] 08/25/21 Ervin Schroeder MD Referring Provider Family Medicine 03/24/[address] [place] [address] documented as of this encounter
--- OUTSIDE RECORDS SUMMARY | 2021-12-28 23:30 | XMS_ITS | Encounter Summary ---
:1990 Author Organization [facility] Address [address] [place] [address] Care Team Providers Name Role Phone Elsewhere, Pcp Primary Care Provider Unavailable Encounter Details Date Type Department Care Team Description 09/03/2021 Virtual Visit Division of Marco Zimmerman [facility] Internal Medicine, M.Slick. Function Test [facility] in [address] [place] [address] [place] [phone] [place], [place] [phone] (Work) [phone] Social History Tobacco Use Types Packs/Day Years [...] or relatives? How often do you attend restoration or Never 2021 confucianism services? 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 - 09/03/2021 5:24 PM CDT Note in error. documented in this encounter Plan of Treatment Upcoming Encounters Date Type Specialty Care Team Description 01/07/2022 Office Visit Community [facility] Medicine Ranjit Red P.A.-C. [address] [place] [phone] (Gwendolyn rahman) 01/12/2022 Appointment Laboratory Medicine Matthew Jerome M.B.B.S., [facility] [place] [phone] (Gwendolyn rahman) 01/12/2022 Appointment Laboratory Medicine Adeline Frazier M.D., Ph.D. [address] [place] [address] [phone] (Wo rk) 01/13/2022 Telemedicine Transplant Joel Tan L.I.C.S.W., M.S. W. [address] [place] [phone] (Wo rk) 01/13/2022 Telemedicine Transplant Matthew Jerome M.B.B.S., M.D. [address] [place] [phone] (Wo rk) 01/13/2022 Telemedicine Transplant Adeline Frazier M.D., Ph.D. [address] [place] [address] [phone] (Gwendolyn rk) 01/28/2022 Office Visit Gastroenterology and Matthew Jerome, Hepatology JoshuaBSumaBGraeme, MJules [address] [place] [phone] (Gwendolyn rk) Scheduled Procedures Name Priority Associated Diagnoses Date/Time ESOPHAGOGASTRODUODENOSCOPY Cirrhosis Alc oholic (HCC) Hypertension Portal (HCC) ESOPHAGOGASTRODUODENOSCOPY Cirrhosis Alc oholic (HCC) Ascites Anemia Macrocytic Thrombocytopenia (HC C) Deficiency Coagulation Acquired (HCC) documented as of this encounter Visit Diagnoses Diagnosis Abnormal Liver Function Test documented in this encounter Additional Health Concerns Infection Onset Date Last Indicated Resolved Time COVID19 08/29/2021 08/29/2021 09/18/2021 8:31 AM CDT documented as of this encounter Care Teams Offensive Coordinator Relationship Specialty Start Date End Date Elsewhere, Pcp PCP - General Family Medicine 03/10/20 11/30/21 [facility] [place] [facility] 08/25/21 Ervin Schroeder MD Referring Provider Family Medicine 03/24/[address] [place] [address] documented as of this encounter
--- OUTSIDE RECORDS SUMMARY | 2021-12-28 23:30 | XMS_ITS | Encounter Summary ---
:1990 Author Organization [facility] Address [address] [place] [address] Care Team Providers Name Role Phone Elsewhere, Pcp Primary Care Provider Unavailable Encounter Details Date Type Department Care Team Description 09/01/2021 Clinical Communication Department of Kerry Naranjo Gastroenterology in [place], [place] M.S.N., R.N. 1025 [facility] 1025 [place] [address] [place], [place] [phone] Social History Tobacco Use Types Packs/Day [...] do you attend restoration or Never 2021 hinduism services? 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 Please enter another request. Thank you. documented in this encounter Plan of Treatment Upcoming Encounters Date Type Specialty Care Team Description 01/07/2022 Office Visit Community Internal Medicine Ranjit Red P.A.-C. [address] [place] [address] [place] [phone] (Wo rk) 01/12/2022 Appointment Laboratory Medicine Matthew Jerome M.B.B.S., M.D. [address] [place] [phone] (Wo rk) 01/12/2022 Appointment Laboratory Medicine Adeline Frazier M.D., Ph.D. [address] [place] [phone] (Wo rk) 01/13/2022 Telemedicine Transplant Joel Tan L.I.C.S.W., M.S. W. [address] [place] [phone] (Wo rk) 01/13/2022 Telemedicine Transplant Matthew Jerome M.B.B.S., M.D. [address] [place] [phone] (Wo rk) 01/13/2022 Telemedicine Transplant Adeline Frazier M.D., Ph.D. [address] [place] [phone] (Wo rk) 01/28/2022 Office Visit Gastroenterology and Matthew Jerome, Hepatology VikBSumaSSuma, MCee. [address] [place] [phone] (Wo rk) Scheduled Procedures Name Priority Associated [...] documented as of this encounter Care Teams Visual Arts Teacher Relationship Specialty Start Date End Date Elsewhere, Pcp PCP - General Family Medicine 03/10/20 11/30/21 [facility] [place] [facility] 08/25/21 Ervin Schroeder MD Referring Provider Family Medicine 03/24/[address] [place] [address] documented as of this encounter
--- OUTSIDE RECORDS SUMMARY | 2021-12-28 23:30 | XMS_ITS | Encounter Summary ---
:1990 Author Organization [facility] Address [address] [place] [address] Care Team Providers Name Role Phone Elsewhere, Pcp Primary Care Provider Unavailable Encounter Details Date Type Department Care Team Description 08/26/2021 Clinical Communication Department of Felicita Spicer Gastroenterology in E, L.P.N. [place], [place] [phone] [place] [address] ([facility]) [place] [phone] Social History Tobacco Use Types Packs/Day [...] do you attend yazidism or Never 2021 mosque services? 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 - 08/29/2021 11:49 AM CDT Called and discussed with patient that Dr. Jerome reviewed her labs and that he had sent in a new Rx for Vitamin K 10 mg daily for the next 3 days (today, Wednesday & Wednesday). Informed her that Dr. Jerome felt after that she should be good to proceed with her EGD on Wednesday. Telephone Encounter - Felicita Spicer L.PSumaN. - 08/29/2021 8:14 AM CDT Patient completed PT yesterday and is now resulted. Please review results and advise as to plan of care as patient is scheduled for EGD on Wednesday. Thank you! Telephone Encounter - Felicita Spicer L.P.N. - 08/27/2021 1:24 PM CDT Pipeline Integrity Engineer called patient and left a detailed message informing her that since she had received vitamin K infusions while in the hospital the recommendation from Dr. Jerome would be to check her INR tomorrow and then determine if more vitamin K vs plasma transfusion prior to her EGD on Wednesday is needed. Informed her scheduling should be reaching out to schedule the INR at a [facility] lab or she can stopin tomorrow at any [facility] lab to have this drawn. Provided direct call back number if she has any further questions. Telephone Encounter - Matthew Jerome M.B.B.S., M.D. - 08/27/2021 1:07 PM CDT Sorry I meant to say can you please Telephone Encounter - Matthew Jerome M.B.B.S., M.D. - 08/27/2021 1:06 PM CDT Hello team Kidney please schedule the INR for tomorrow and notify the patient? Thanks Telephone Encounter - Alina Carranza R.N. - 08/27/2021 11:14 AM CDT Patient in process of discharge from [facility] (see note below). She did receive vitamin K doses while there but she is concerned about a prescription for prior to her ECG on Wednesday. Please order prescription as needed and notify patient of plan. Thank you. Telephone Encounter - Felicita Spicer L.P.N. - 08/26/2021 2:48 PM CDT Received a message from the patient looking for clarification on when she should start the oral vitamin K prior to her upcoming EGD on 09/01/21. She also states that the pharmacy does not have the Rx forthe vitamin K and request this be sent to the [facility] in [place]. Upon chart review of past documentation the following was noted by Kerry Naranjo. I have ordered Vitamin K 5 mg X 7 days, to take orally. Then follow up by repeat PT/INR??on the 8th day. Please call pt and ask to get the lab at [facility] in [place]; this allows access to results. Past attempts to get lab work from outside PCP has failed. ?? She should start to take the Vitamin K 10 days prior to the r/s EGD. After speaking with the patient she has NOT yet started on the vitamin K therapy and even if she started the medication today, the procedure is scheduled for 7 days out. Would you still like her to do 7 days of vitamin K? It is also important to note that the patient is currently in patient at [facility] and likely would not be able to start the Rx tonight anyway. Please advise how patient should take vitamin K as she is scheduled for EGD on 09/01/21. A new Rx would need to be sent to the [facility] in [place] as the song writer checked with the pharmacy and the they do not have the vitamin K Rx on file. documented in this encounter Plan of Treatment Upcoming Encounters Date Type Specialty Care Team Description 01/07/2022 Office Visit Community Internal Medicine Ranjit Red P.A.-C. 300 [place] [phone] (Wo rk) 01/12/2022 Appointment Laboratory Medicine Matthew Jerome M.B.B.S., M.Jeri [address] [place] [phone] (Wo rk) 01/12/2022 Appointment Laboratory Medicine Adeline Frazier M.D., Ph.D. [address] [place] [phone] (Wo rk) 01/13/2022 Telemedicine Transplant Joel Tan L.I.C.S.W., M.S. W. [address] [place] [phone] (Wo rk) 01/13/2022 Telemedicine Transplant Matthew Jerome M.B.B.SSuma, M.Slick. [address] [place] [phone] (Wo rk) 01/13/2022 Telemedicine Transplant Adeline Frazier M.D., Ph.D. [address] [place] [phone] (Wo rk) 01/28/2022 Office Visit Gastroenterology and Matthew Jerome, Hepatology JoshuaBSumaB.SSuma, MCee. [address] [place] [phone] (Wo rk) Scheduled Procedures Name Priority Associated Diagnoses Date/Time ESOPHAGOGASTRODUODENOSCOPY Cirrhosis Alc oholic (HCC) Hypertension Portal (HCC) ESOPHAGOGASTRODUODENOSCOPY Cirrhosis Alc oholic (HCC) Ascites Anemia Macrocytic Thrombocytopenia (HC C) Deficiency Coagulation Acquired (HCC) documented as of this encounter Visit Diagnoses Not on filedocumented in this encounter Additional Health Concerns Infection Onset Date Last Indicated Resolved Time COVID19 Pending 08/29/2021 08/29/2021 08/29/2021 11:29 PM CDT COVID19 08/29/2021 08/29/2021 09/18/2021 8:31 AM CDT documented as of this encounter Care Teams Broadcast Program Director Relationship Specialty Start Date End Date Elsewhere, Pcp PCP - General Family Medicine 03/10/20 11/30/21 [facility] [place] [facility] 08/25/21 Ervin Schroeder MD Referring Provider Family Medicine 03/24/[address] [place] [phone] documented as of this encounter
--- OUTSIDE RECORDS SUMMARY | 2021-12-28 23:30 | XMS_ITS | Encounter Summary ---
:1990 Author Organization [facility] Address [address] [place] [address] Care Team Providers Name Role Phone Elsewhere, Pcp Primary Care Provider Unavailable Encounter Details Date Type Department Care Team Description 09/05/2021 Clinical Communication Division of Edgar [facility] in Warren Schaefer M.D.[place], [place] M.P.H. [address] [facility] [address] [place] [address] [place], [place] [phone] [address] Social History Tobacco Use Types Packs/Day Years [...] do you attend christianity or Never 2021 islam services? 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 Hernández ordered a variety of tests for patient ot complete closer to home. [facility] reachedout to patient to offer tests closer to home and patient stated she would rather drive to [place] for all testing. Due to patient preference, the following orders will need region changes from [facility] to [facility] before we are able to schedule for patient in [place]. 1. BMD bone Density Spine and Hips 2. CT Abdomen with and without IV Contrast 3. DX Chest AP or PA and Lateral 2 views If this message has been directed to the incorrect pool, please forward to the team that assists with orders. Thank you. documented in this encounter Plan of Treatment Upcoming Encounters Date Type Specialty Care Team Description 01/07/2022 Office Visit Community Internal Medicine DeaRanjit august P.A.-C. [address] [place] [phone] (Wo rk) 01/12/2022 Appointment Laboratory Medicine Matthew Jerome M.B.BSumaSSuma, MJules [address] [place] [phone] (Gwendolyn rk) 01/12/2022 Appointment Laboratory Medicine Adeline Frazier M.D., Ph.D. [address] [place] [phone] (Gwendolyn rahman) 01/13/2022 Telemedicine Transplant Joel Tan L.I.C.S.W., M.S. W. [address] [place] [phone] (Gwendolyn rahman) 01/13/2022 Telemedicine Transplant Matthew Jerome M.B.BSumaSSuma, MSumaD. [address] [place] [phone] (Gwendolyn rahman) 01/13/2022 Telemedicine Transplant Adeline Frazier M.D., Ph.D. [address] [place] [phone] (Gwendolyn rahman) 01/28/2022 Office Visit Gastroenterology and Matthew Jerome, Hepatology Elizabeth.BSumaB.SSuma, MSumaD. [address] [place] [phone] (Gwendolyn rk) Scheduled Procedures Name Priority [...] documented as of this encounter Care Teams Hide Stretcher Hand Relationship Specialty Start Date End Date Elsewhere, Pcp PCP - General Family Medicine 03/10/20 11/30/21 [facility] [place] [facility] 08/25/21 Ervin Schroeder MD Referring Provider Family Medicine 03/24/[address] [place] [phone] documented as of this encounter
--- OUTSIDE RECORDS SUMMARY | 2021-12-28 23:30 | XMS_ITS | Encounter Summary ---
:1990 Author Organization [facility] Address [address] [place] [address] Care Team Providers Name Role Phone Elsewhere, Pcp Primary Care Provider Unavailable Reason for Visit Reason Comments Medical Information Encounter Details Date Type Department Care Team Description 08/30/2021 Nurse Triage Department of Joshua Resendiz, Medical Information Medicine, [facility], in [place], [place] [address] [phone] Social History Tobacco Use Types Packs/Day Years [...] or relatives? How often do you attend pentecostalism or Never 2021 pentecostal services? 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 - 08/30/2021 12:33 PM CDT Chief Complaint / Reason for Call Patient is a 31 y.o. female calling regarding Medical Information. Assessment Concern: Covid positive, asks what to do and if she needs to take Oxycodone, or what measures she should follow, general questions. Asymptomatic at this time. Patient encouraged to reach out to PCP and specialty teams on Wednesday. https://www.cdc.gov/coronavirus/2019-ncov/vaccines/about-vaccines/index.html?s_c jy=23419:covid%20vaccine:sonja.ga:p:RG:GM:gen:PTN: Calling to request: information The recommended disposition is Manage symptoms at home. documented in this encounter Plan of Treatment Upcoming Encounters Date Type Specialty Care Team Description 01/07/2022 Office Visit Community Internal Medicine Ranjit Red P.A.-C. [address] [place] [address] (Wo rk) 01/12/2022 Appointment Laboratory Medicine Matthew Jerome M.B.B.S., MJuels [address] [place] [phone] (Wo rk) 01/12/2022 Appointment Laboratory Medicine Adeline Frazier M.D., Ph.D. [address] [place] [phone] (Gwendolyn rk) 01/13/2022 Telemedicine Transplant Joel Tan L.I.C.S.W., M.S. W. [address] [place] [phone] (Gwendolyn rk) 01/13/2022 Telemedicine Transplant Matthew Jerome M.B.B.S., MJules [address] [place] [phone] (Gwendolyn rk) 01/13/2022 Telemedicine Transplant Adeline Frazier M.D., Ph.D. [address] [place] [phone] (Gwendolyn rk) 01/28/2022 Office Visit Gastroenterology and Matthew Jerome, Hepatology JoshuaBMinooSSuma, MJules [address] [place] [phone] (Gwendolyn rk) Scheduled Procedures Name Priority [...] documented as of this encounter Care Teams Soil Expert Relationship Specialty Start Date End Date Elsewhere, Pcp PCP - General Family Medicine 03/10/20 11/30/21 [facility] 08/25/21 Ervin Schroeder MD Referring Provider Family Medicine 03/24/[address] [place] [address] documented as of this encounter
--- OUTSIDE RECORDS SUMMARY | 2021-12-28 23:30 | XMS_ITS | Encounter Summary ---
:1990 Author Organization [facility] Address [address] [place] [address] Care Team Providers Name Role Phone Elsewhere, Pcp Primary Care Provider Unavailable Encounter Details Date Type Department Care Team Description 09/03/2021 Clinical Communication Division of Marco Zimmerman, [facility] [address] [place] [address] [place] [phone] [place], [place] [phone] (Work) [phone] Social History Tobacco Use Types Packs/Day Years [...] do you attend jain or Never 2021 druze services? 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 - 09/03/2021 5:26 PM CDT [facility] TELEPHONE COMMUNICATION NOTE Skidder Runner: None The patient was called regarding a recent positive COVID-19 test. Based on an initial review of the patient's medical record, treatment may be appropriate for COVID-19. Patient Interest: The patient is interested in learning about medications and monitoring. COVID-19 Symptoms: The patient is having symptoms that started on 08/31/21. The symptoms are not severe. Severe symptoms may include new or increasing oxygen requirements, shortness of breath at rest, shortness of breath that limits walking short distances, chest pain (such as retrosternal or left sided chest pain, pain that radiates to the jaw or arm), and dizziness or lightheadedness that makes them unsteady or unable to stand or walk. Do you have new or increased oxygen requirement due to COVID 19? No. Are you or ? no. Have you previously received treatment for COVID-19 in the last 90 days? No. Pre-Call Chart Review: Chart review was completed and indicates the patient is preliminarily eligible for Paxlovid and Molnupiravir Counseling Regarding Therapy for COVID-19 You may choose to accept or refuse any of the available treatments that we will review today. You may also stop treatment at any time. Your choice will not change your standard medical care. Regardless of your choice, you should continue to self-isolate and use infection control measures according to CDC guidelines (e.g., wear mask, isolate, social distance, avoid sharing personal items, and frequent handwashing). In addition, regardless of whether you accept any of the treatments we discuss today, if you developworsening symptoms of COVID-19, you should reach out to your primary care provider or present to [facility] emergency department for evaluation. Treatment Options Discussion Patient was seen by her PCP today and was reportedly prescribed Paxlovid already. Treatment Decision: N/A. Side Effects and Fact Sheet for Patients, Parents and Caregivers Tell your healthcare provider right away if you have any urgent side effects. For non-urgent side effects or side effects that bother you or do not go away please contact the care team coordinating your COVID care during business hours. This may be your primary care provider, your COVID care team or your remote monitoring nurse team, which ever is applicable. If you have symptoms of a severe allergic reaction, including difficulty breathing or swelling of the lips, tongue or throat, severe dizziness, lightheadedness or weakness,call 911 and go to the Emergency Department. If you have continued questions please reach out to the team coordinating your clinical care, e[facility]ra COVID-19 focused team or your primary care provider's office. The Fact Sheet for Patients, Parents and Caregivers was provided by the online Portal and will be provided to patient/caregiver at the infusion therapy center or pharmacy. Remote Patient Monitoring: Does the patient have a qualifying MASS score? No. MASS Score is 0-2. End RPM screening. Does the patient have symptoms? Yes. Patient is day 0-5 from symptom onset. Continue RPM screening. Is the patient eligible for Remote Patient Monitoring? No. You do not qualify for Remote Patient Monitoring. COVID-19 Isolation Beginning of isolation (day 0) is considered the start of onset of symptoms. Isolate at home with minimal to no contact with other people living in your house until all the following are true: ?? It has been at least 5 days since your symptoms started. Or, if you have no symptoms, it has beenat least 5 days since your positive COVID-19 test. If you are immune compromised, isolate for at least 10 days. ?? You are fever free for at least 24 hours without the use of fever-reducing medications. Wear a mask everywhere you go for an additional 5 days. Continue to wear a mask in indoor spaces when community transmission is high. What should you tell your close contacts who are NOT UP TO DATE WITH VACCINATIONS? ?? Quarantine for 5 days after last contact. ?? After quarantine, wear a mask for 5 more days. Continue to wear a mask in indoor spaces when community transmission is high. ?? Get tested for COVID-19 five days after the close contact exposure. ?? If they develop symptoms, they need to quarantine and get tested for COVID-19. What should you tell your close contacts if they ARE UP TO DATE WITH VACCINATION? ?? Wear a mask for 10 days following the close contact exposure. ?? They do not need to quarantine if they do not have symptoms. ?? Get tested for COVID-19 five days after the close contact exposure. ?? If they develop symptoms, they need to quarantine and get tested for COVID-19. Defining Up to Date with Vaccinations Received a Booster dose as scheduled after completion of an mRNA vaccine series (Moderna or Pfizer) OR 2 months after a [employer] vaccine. Thank you for your time today. The results of this call will be shared with members of your care team. Response to Education: patient/caller able to teach back Caller agreeable to plan of care: yes The following references were used: Nursing or Provider judgement, [facility] workflow, [facility] Protocols Marco Alberto M.D. Theresa COVID Care Team [facility] and [facility] documented in this encounter Plan of Treatment Upcoming Encounters Date Type Specialty Care Team Description 01/07/2022 Office Visit Community Internal Medicine Ranjit Red P.A.-C. [address] [place] [phone] (Wo rk) 01/12/2022 Appointment Laboratory Medicine Matthew Jerome M.B.B.SSuma, MCee. [address] [place] [phone] (Wo rk) 01/12/2022 Appointment Laboratory Medicine Adeline Frazier M.D., Ph.D. [address] [place] [phone] (Wo rk) 01/13/2022 Telemedicine Transplant Joel Tan L.I.C.S.W., M.S. W. [address] [place] [phone] (Wo rk) 01/13/2022 Telemedicine Transplant Matthew Jerome M.B.B.SSuma, M.D. [address] [place] [phone] (Wo rk) 01/13/2022 Telemedicine Transplant Adeline Frazier M.D., Ph.D. [address] [place] [phone] (Wo rk) 01/28/2022 Office Visit Gastroenterology and Matthew Jerome, Hepatology VikBSumaSSuma, MCee. [address] [place] [phone] (Wo rk) Scheduled Procedures Name Priority Associated [...] documented as of this encounter Care Teams Radiology Physician Assistant Relationship Specialty Start Date End Date Elsewhere, Pcp PCP - General Family Medicine 03/10/20 11/30/21 [facility] 08/25/21 Ervin Schroeder MD Referring Provider Family Medicine 03/24/[address] [place] [address] documented as of this encounter
--- OUTSIDE RECORDS SUMMARY | 2021-12-28 23:30 | XMS_ITS | Encounter Summary ---
:1990 Author Organization [facility] Address [address] [place] [address] Care Team Providers Name Role Phone Elsewhere, Pcp Primary Care Provider Unavailable Reason for Visit Reason Comments Medication Question Encounter Details Date Type Department Care Team Description 08/31/2021 Nurse Triage Department of [facility] Misty dicjenaro Question Medicine, [facility], in [place], [address] [facility], [place] [address] [place] [phone] [place] [address] [phone] Social History Tobacco Use Types Packs/Day Years [...] or relatives? How often do you attend methodist or Never 2021 tenriism services? 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 - 08/31/2021 8:57 AM CDT Chief Complaint / Reason for Call Patient is a 31 y.o. female calling regarding Medication Question. Assessment Concern: Patient is Covid positive and is wondering what she can take for her body aches and chills due to having liver cirrhosis. Advised patient to reach out to her PCP or local pharmacist for further guidance. Patient verbalized understanding. The recommended disposition is Call Pharmacist Within 24 Hours. Reason for Disposition ??? [1] Caller has medicine question about med NOT prescribed by PCP AND [2] triager unable to answer question (e.g., compatibility with other med, storage) Protocols used: MEDICATION QUESTION [id number] Care Advice Patient/Caregiver understands and will follow care advice?: Yes, able to teach back CALL PHARMACIST WITHIN 24 HOURS: . ALTERNATE DISPOSITION - CALL DOCTOR WITHIN 24 HOURS: * The patient's healthcare provider (doctor, HEARSE DRIVER, or PA) may be able to handle this over the phone. * Ask who prescribed the medication. If it was a specialist (e.g., neurologist, psychiatrist), referthe call to them, not the PCP. CALL BACK IF: * You have more questions or concerns * You become worse. CARE ADVICE given per Medication Question Call (Adult) guideline. documented in this encounter Plan of Treatment Upcoming Encounters Date Type Specialty Care Team Description 01/07/2022 Office Visit Community Internal Medicine Rajnit Red P.A.-C. [address] [place] [phone] (Gwendolyn rahman) 01/12/2022 Appointment Laboratory Medicine Matthew Jerome M.B.B.SSuma, M.D. [address] [place] [phone] (Gwendolyn rahman) 01/12/2022 Appointment Laboratory Medicine Adeline Frazier M.D., Ph.D. [address] [place] [phone] (Gwendolyn rahman) 01/13/2022 Telemedicine Transplant Joel Tan L.I.C.SSumaWSuma, M.S. W. [address] [place] [phone] (Gwendolyn rahman) 01/13/2022 Telemedicine Transplant Matthew Jerome M.B.B.SSuma, M.D. [address] [place] [phone] (Gwendolyn rahman) 01/13/2022 Telemedicine Transplant Adeline Frazier M.D., Ph.D. [address] [place] [phone] (Gwendolyn rahman) 01/28/2022 Office Visit Gastroenterology and Matthew Jerome, Hepatology Lilian Santillan [address] [place] [phone] (Wo rk) Scheduled Procedures Name Priority Associated [...] documented as of this encounter Care Teams Cluster Bore Operator Relationship Specialty Start Date End Date Elsewhere, Pcp PCP - General Family Medicine 03/10/20 11/30/21 [facility] [place] [facility] 08/25/21 Ervin Schroeder MD Referring Provider Family Medicine 03/24/[address] [place] [phone] documented as of this encounter
--- OUTSIDE RECORDS SUMMARY | 2021-12-28 23:31 | XMS_ITS | Encounter Summary ---
:1990 Author Organization [facility] Address [address] [place] [address] Care Team Providers Name Role Phone Elsewhere, Pcp Primary Care Provider Unavailable Reason for Visit Reason Comments Leg Swelling Encounter Details Date Type Department Care Team Description 08/01/2021 Nurse Triage Department of [facility] Faviola Leg Swelling Medicine, [place] [facility] [place] [address] [place] [address] [place] [address] [phone] Social History Tobacco Use Types Packs/Day Years [...] or relatives? How often do you attend samaritan or Never 2021 evangelical services? 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 - 08/01/2021 1:58 AM CDT Chief Complaint / Reason for Call Patient is a 31 y.o. female calling regarding Leg Swelling. Assessment Concern: Bilateral lower leg swelling since being discharged from the hospital on 07/27. Swelling starts below her knees and extends to her toes. Edema is pitting and painful. Rates her pain a 8-8.5/10.Legs are slightly reddened, denies drainage from swelling. Photos were sent to her dye house hand. History of Alcoholic Cirrhosis, Live failure, chronic pancreatitis. She denies chest pain or breathing concerns. Approximately 15 pound weight gain this week. She has a paracentesis over the weekend with minimal output and states she does not feel the weight gain is from any access fluid in her abdomen. Present for: 4 days Home cares tried: Low sodium diet, takes diuretics, heat pads, compression stockings, elevation, hottub, oxycodone for pain Calling to request: advice The recommended disposition is See a health care provider within 24 hours. Care Advice Patient/Caregiver understands and will follow care advice?: Yes, able to teach back SEE PCP WITHIN 24 HOURS LEG SWELLING OR EDEMA: * Elevate your legs or try to lay down once or twice daily for 20 minutes. * Avoid socks with an elastic band at the top. Wear comfortable shoes. CALL BACK IF: * Breathing difficulty or chest pain occurs * You become worse. Reason for Disposition ??? [1] MODERATE leg swelling (e.g., swelling extends up to knees) AND [2] new- onset or worsening Protocols used: LEG SWELLING AND [id number] documented in this encounter Plan of Treatment Upcoming Encounters Date Type Specialty Care Team Description 01/07/2022 Office Visit Community Internal Medicine Ranjit Red P.A.-C. [address] [place] [phone] (Gwendolyn rahman) 01/12/2022 Appointment Laboratory Medicine Matthew Jerome M.B.B.S., M.D. [address] [place] [phone] (Gwendolyn rahman) 01/12/2022 Appointment Laboratory Medicine Adeline Frazier M.D., Ph.D. [address] [place] [phone] (Gwendolyn rahman) 01/13/2022 Telemedicine Transplant Joel Tan L.I.C.S.W., M.S. W. [address] [place] [phone] ( lacey) 01/13/2022 Telemedicine Transplant Matthew Jerome M.B.B.S., M.DSuma [address] [place] [phone] (Gwendolyn rahman) 01/13/2022 Telemedicine Transplant Adeline Frazier M.D., Ph.D. [address] [place] [phone] (Wo rk) 01/28/2022 Office Visit Gastroenterology and Matthew Jerome Hepatology Lilian Santillan [address] [place] [phone] (Wo rk) Scheduled Procedures Name Priority Associated Diagnoses Date/Time ESOPHAGOGASTRODUODENOSCOPY Cirrhosis Alc oholic (HCC) Hypertension Portal (HCC) ESOPHAGOGASTRODUODENOSCOPY Cirrhosis Alc oholic (HCC) Ascites Anemia Macrocytic Thrombocytopenia (HC C) Deficiency Coagulation Acquired (HCC) documented as of this encounter Visit Diagnoses Not on filedocumented in this encounter Care Teams Elevator Runner Relationship Specialty Start Date End Date Elsewhere, Pcp PCP - General Family Medicine 03/10/20 11/30/21 Ervin Schroeder MD Referring Provider Family Medicine 03/24/[address] [place] [phone] documented as of this encounter
--- OUTSIDE RECORDS SUMMARY | 2021-12-28 23:31 | XMS_ITS | Encounter Summary ---
:1990 Author Organization [facility] Address [address] [place] [address] Care Team Providers Name Role Phone Elsewhere, Pcp Primary Care Provider Unavailable Reason for Referral Outpatient (Routine) - Closed Specialty Diagnoses / Referred By Contact Referred To Procedures Contact Gastroenterology and Matthew Jerome, [facility] Region Hepatology Lilian Santillan [address] [place] [phone] Referral ID Status Reason Start Date Expiration Date Visits Requ ested Visits Authorized [id number] Closed 08/05/2021 08/05/2022 1 1 Occupational Therapy (Routine) - Closed Specialty Diagnoses / Procedures Referred By Contact Refer red To Contact Diagnoses Edema Leg Matthew Jerome M.B.B.S., [facility] Procedures OT Evaluate and treat Lilian [address] [place] [phone] Referral ID Status Reason Start Date Expiration Date Visits Requ ested Visits Authorized [id number] Closed 08/05/2021 08/05/2022 1 1 Reason for Visit Outpatient (Routine) - Closed Specialty Diagnoses / Referred By Contact Referred To Procedures Contact Gastroenterology and Kerry Naranjo [facility] Hepatology FOREST PATHOLOGISTRachele., R.N. [address] [place] [address] Referral ID Status Reason Start Date Expiration Date Visits Requ ested Visits Authorized [id number] Closed 07/21/2021 07/21/2022 1 1 Encounter Details Date Type Department Care Team Description 08/05/2021 Office Visit Department of Matthew Jerome, Douglas Leg (P rimary Dx); Gastroenterology in Joshua Santillan Cirrhosis Alcoholic (HCC) [place], [place] [address] [phone] Social History Tobacco Use Types Packs/Day [...] or relatives? How often do you attend adventist or Never 2021 presybeterian services? 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 - 08/05/2021 1:00 PM CDT Please call us for any new or worsening symptoms. We will follow with you after completion of the workup as part of the transplant evaluation. We will see you back in clinic at an appointment to be scheduled. documented in this encounter Consult Notes Matthew Jerome M.B.B.S., M.D. - 08/05/2021 1:00 PM CDT Patient Name: Catia Carias Date of : 1990 Date of encounter: 08/05/2021 REFERRAL Kerry Naranjo APRN, C.NDayne, M.S.N. SUBJECTIVE CHIEF COMPLAINT/REASON FOR VISIT Alcohol related cirrhosis HISTORY OF PRESENT ILLNESS Catia Carias is a 31 y.o. female who presents for evaluation for liver transplantation. She hasa known history of alcohol related cirrhosis, portal hypertension, splenomegaly, ascites, chronic pancreatitis, GERD, anxiety, depression, migraines, tobacco use, ADHD, marijuana use and eating disorder between age 12 (body dysmorphia) and 30 years but intermittently. This visit was conducted during the SARS-CoV2 (COVID-19) Pandemic and myself and the patient had facemasks on. She presented today accompanied by her mother. She was recently seen by my colleague and she expressed interest in liver transplantation, and that is why she was referred to my clinic. At this time her main concern is worsening lower extremity edema, and she described recent abdominalpain with vomiting for which she is scheduled for an upper endoscopy in few weeks. She did not have any confusion, worsening abdominal distension, chest pain or difficulty breathing or fevers. She did have jaundice. She described her symptoms well, and she described her medical condition using medical terms including ascites. She presented to the ER multiple times over the past few months, for fever, GI symptoms including abdominal pain and vomiting. She also had sleep-related issues according to the notes. She also has been having lower extremity edema. It was recommended on different occasions that she undergo diagnostic paracentesis for diagnostic purposes and to rule out SBP especially that she had abdominal pain, butthis was declined. Last March 2021 she was hospitalized for altered mental status and decompensated cirrhosis, and at that time she was found unresponsive at home by her boyfriend and mother and she had soiled herself. She was intubated for about 48 hours and she received pressors and IV antibiotics. At that time it was described in the medical record that she had altered mental status and questionable denise and therefore the psychiatry team were consulted. At that time it was not clear if she was having a 1st episode of denise or whether her symptoms were due to hepatic encephalopathy. She did not require any further inpatient psychiatric intervention, and given that she return back to baseline, it was recommended that she follows with her primary care physician after discharge, and to be referred to outpatient psychiatry if denise like symptoms return. There are no recurrent symptoms according to her chart. She was started on spironolactone and furosemide for ascites, and Cipro for SBP prophylaxis during the same hospitalization. She also had a loud systolic murmur during the hospitalization and TTE with a bubble study showed right to left atrial shunt with severely enlarged left atrium. She was evaluated by Cardiology and outpatient follow-up was recommended. The Neurology team ruled out any neurologic cause of her altered mental status. Took a lot of ibuprofen and tylneol in the past: fractures (elbow, legs) related to a fall on ice inthe past. Worked at [employer]. For 13 years she was a vegetarian, so she states it is now difficult to eat protein as she was recommended to do given her diagnosis of cirrhosis. Now adding meat. Alcohol related history per patient today: Last [...] on her own after a trip to [place] last July 2020, but could not remember why she decided to. Prior to that she had 4 episodes of recurrent pancreatitis. She states that the 1st illness she had was after a trip to [place] when she had abdominal pain and she was found to have pancreatitis: around 2014. At that time she was told about alcohol use. According to the chart: A psychiatry note from 2019 reported history of alcohol use abuse, reportedly in remission. Her mother and her voice are caregivers. They both drink occasionally but not around her. Other medical problems: as above. Previous surgeries: none, just foot and elbow (hardware) FH of liver disease: none. The following portions of the patient's history were reviewed and updated as appropriate: allergies,current medications, family history, medical history, social history, surgical history and problem list. REVIEW OF SYSTEMS A comprehensive review of systems was performed, and the positive symptoms are mentioned in the HPI above. OBJECTIVE VITAL SIGNS BP (!) 110/52 (BP Location: Right arm, Patient Position: Sitting, Cuff Size: Regular) Pulse 82 Ht 157.5 cm Wt 58.9 kg BMI 23.74 kg/m?? PHYSICAL EXAMINATION General: Patient looks ill and she has jaundice. Head/Neck: Normocephalic, atraumatic. + scleral icterus. Neck is supple. Abdomen: nondistended. Positive bowel sounds. No dilated veins or spider angiomas. Musculoskeletal: +3 lower extremity edema. Skin: + jaundice. Neurologic: Cranial nerves grossly intact. No confusion. DIAGNOSTICS Reviewed. ASSESSMENT / PLAN #1 Decompensated cirrhosis secondary to alcohol: # Alcohol use disorder, in remission: Last alcoholic drink July 2020. # History of tylenol toxicity: self medicating for neuropathic pain after surgery MELD-Na score: 25 at 03/24/2021 6:15 AM MELD-Na score: 27 at 08/03/2021 4:27 AM MELD score: 25 at 08/03/2021 4:27 AM Calculated from: Serum Creatinine: 0.56 mg/dL (Using min of 1 mg/dL) at 08/02/2021 10:44 PM Serum Sodium: 132 mmol/L at 08/02/2021 10:44 PM Total Bilirubin: 9 mg/dL at 08/03/2021 4:27 AM INR(ratio): 2.6 at 08/02/2021 10:44 PM Age: 31 years Current complications: Jaundice with scleral icterus, hepatic encephalopathy, minimal/trace leg edema, no ascites, recent variceal bleeding, no HCC. ?? We explained to the patient the diagnosis of decompensated cirrhosis and the complications of cirrhosis.??We provided counseling regarding management of this disease. She was first told about cirrhosis in 01/2021. Last alcoholic drink July 2020. We discussed the liver transplant evaluation process, and the need to obtain more information, complete further blood work, imaging and consultations to be able to discuss her case fully at the liver Transplant selection committee meeting in [facility]. She agreed to proceed. I explained that there is a criteria that we need to meet, and there is a protocol that each patient follows before we cannot tell if the patient qualifies for liver transplantation or not. I informed her that I will do mybest to support her case and I will discuss her condition with the committee and do our best to helpher. Next step is that I will contact the liver transplant coordinators to submit [id number], pending approval. Once approved, the transplant coordinators will complete a phone screen and we will place evaluation orders accordingly. I will continue to follow the patient in the meantime. ?? #2 Fluid retention: Trace lower extremity edema and refractory ascites. - Increase Furosemide 20 mg QD to 40 mg and spironolactone 50 mg QD to 100 mg. - Low sodium diet, up to 2000 mg of sodium per 24 hours. - I will refer her to the lymphedema Clinic for significant lower extremity edema. - Continue SBP prophylaxis with Cipro daily: Low protein ascites - OT Evaluate and treat; Future; Expected date: 08/05/2021 - Basic Metabolic Panel; Future; Expected date: 08/11/2021 ?? #3 Portal hypertension with splenomegaly and thrombocytopenia. #4 Unknown if she has esophageal varices #4 Possible Portal hypertensive gastropathy Not on a Beta-tommy. Heart rate = 80 Next UPPER ENDOSCOPY scheduled on 08/2021: Pending ?? 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 #8 Bone health: At risk Osteoporosis/osteopenia # [...] and 3 small meals - Encouraged bedtime snack.?? - Avoid uncooked seafood and shellfish - Avoid NSAIDS and no alcohol use- ?? #11 Immunization Received vaccines against B viruses and may need vaccine for [...] leg pain Medical marijuana through her PCP #15 Newly diagnosed PFO with [id number] atrial shunt: Echo done March 2020 # Severe left atrial enlargement. Needs cardiology evaluation # History of eating disorder # Controlled substance agreement signed 2016 # Anxiety disorder 2011 and history of panic attacks # History of Major depression in remission # ADHD 2007 # History of Tobacco use Needs transplant psychiatry evaluation and clearance Follow-up in GI/Hepatology clinic in 1 month with blood work. In the meantime I will initiate the liver transplant evaluation process. - Gastroenterology and Hepatology office visit (clinic); Future; Expected date: 09/17/2021 It was a pleasure seeing Ms. Carias today. We answered her questions, and we would be happy to answerany further questions she has. OLAYINKA Trotter Gastroenterology, Hepatology and Transplant hepatology [facility] documented in this encounter Plan of Treatment Upcoming Encounters Date Type Specialty Care Team Description 01/07/2022 Office Visit Community Internal Medicine Ranjit Red P.A.-C. [address] [place] [phone] (Gwendolyn rahman) 01/12/2022 Appointment Laboratory Medicine Matthew Jerome M.B.B.S., M.D. [address] [place] [phone] (Gwendolyn rahman) 01/12/2022 Appointment Laboratory Medicine Adeline Frazier M.D., Ph.D. [address] [place] [phone] (Gwendolyn rahman) 01/13/2022 Telemedicine Transplant Joel Tan L.I.C.S.W., M.S. W. [address] [place] [phone] (Wo rk) 01/13/2022 Telemedicine Transplant Matthew Jerome M.B.B.S., M.D. [address] [place] [phone] (Wo rk) 01/13/2022 Telemedicine Transplant Adeline Frazier M.D., Ph.D. [address] [place] [phone] (Wo rk) 01/28/2022 Office Visit Gastroenterology and Matthew Jerome, Hepatology Tyrell, Lilian [address] [place] [phone] (Gwendolyn rk) Scheduled Procedures Name Priority Associated Diagnoses Date/Time ESOPHAGOGASTRODUODENOSCOPY Cirrhosis Alc oholic (HCC) Hypertension Portal (HCC) ESOPHAGOGASTRODUODENOSCOPY Cirrhosis Alc oholic (HCC) Ascites Anemia Macrocytic Thrombocytopenia (HC C) Deficiency Coagulation Acquired (HCC) Scheduled Referrals Name Type Priority Associated Order Schedule Diagnoses Gastroenterology and Outpatient Routine Expecte d: Hepatology office visit Referral 08/31 (clinic) (Approximate), Expires: 11/04/2022 documented as of this encounter Results (ABNORMAL) Basic Metabolic Panel (08/11/2021 11:51 AM CDT) P athologist Signature Potassium, P 4.2 3.6 - 5.2 08/11/2021 [place] mmol/L 1:53 PM CDT Sodium, P 133 (L) 135 - 145 08/11/2021 [place] mmol/L 1:53 PM CDT Chloride, P 101 98 - 107 08/11/2021 [place] mmol/L 1:53 PM CDT Bicarbonate, P 23 22 - 29 08/11/2021 [place] mmol/L 1:53 PM CDT Anion Gap, P 9 7 - 15 08/11/2021 [facility] 1:53 PM CDT BUN (Blood Urea 10 6 - 21 08/11/2021 [place] Nitrogen), P mg/dL 1:53 PM CDT Creatinine 0.71 0.59 - 08/11/2021 [facility] 1.04 mg/dL 1:53 PM CDT eGFR-Black/Afri >90 >=60 08/11/2021 [facility] can Salvadorean mL/min/BSA 1:53 PM CDT Comment: ----ADDITIONAL INFORMATION---- Estimated GFR calculated using the 2009 CKD_EPI creatinine equation. eGFR Non-Black/ >90 >=60 mL/min/BSA 08/11/2021 1:53 PM CDT [facility] Comment: ----ADDITIONAL INFORMATION---- Estimated GFR calculated using the 2009 CKD_EPI creatinine equation. Calcium, Total, P 8.8 8.6 - 10.0 mg/dL 08/11/2021 1:53 PM CDT [facility] Glucose, P 141 (H) 70 - 140 mg/dL 08/11/2021 1:53 PM CDT O PETAR Specimen Anatomical Collection Method Collection Time Receive d Time (Source) Location / / Volume Laterality Blood (Blood, 08/11/2021 11:51 08/11/2021 1:07 Venous) AM CDT PM CDT Matthew Santillan M.D. LAB BLOOD ADD-ON Performing Organization Address City/State/ZIP Code Phon e Number [facility] [address] [place] [address] [place] [address] System in [place] [address] documented in this encounter Visit Diagnoses Diagnosis Edema Leg - Primary Cirrhosis Alcoholic (HCC) documented in this encounter Care Teams Cinder Crusher Operator Relationship Specialty Start Date End Date Elsewhere, Pcp PCP - General Family Medicine 03/10/20 11/30/21 Ervin Schroeder MD Referring Provider Family Medicine 03/24/[address] [place] [address] documented as of this encounter
--- OUTSIDE RECORDS SUMMARY | 2021-12-28 23:31 | XMS_ITS | Encounter Summary ---
:1990 Author Organization [facility] Address [address] [place] [address] Care Team Providers Name Role Phone Elsewhere, Pcp Primary Care Provider Unavailable Encounter Details Date Type Department Care Team Description 08/01/2021 Clinical Communication [facility] Lester Garber La u[place] M, [place] M.D. [address] [place] [address] [address] [place] [phone] Social History Tobacco Use Types Packs/Day Years [...] do you attend restoration or Never 2021 gnosticism services? 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 - 08/01/2021 5:44 PM CDT The Medicine 1 team received a phone call from Ms. Carias this evening. She said that since was discharged from the hospital on 07/27/21 she has experienced bilateral, painful leg swelling. There is no redness or drainage. She has been taking her diuretic medications (furosemide 20 mg and xhcvzesipoznjt52 mg) as prescribed. She has been wrapping and elevating her legs and has been going to the local hot tub to soak her legs to try to the make the swelling go down. Other than leg pain and swelling shedenies an other symptoms like fever, chills, chest pain, shortness of breath, or abdominal pain. Shedenied any recent significant weight gain or increased fluid accumulation around her abdomen. She says that she has reached out to her PCP about the swelling but has not heard back. She sent pictures of her legs as well. She also called a nursing line today and was recommended to see a healthcare provider within 24 hours. I recall that Ms. Carias had a heart murmur on examination and her echocardiogram in 2020 showed a PFO and a severely enlarged left atrium. I recommended for Ms. Carias to see a healthcare provider within 24 hours. She will continue to try to reach her PCP's office to see him or one of his colleagues tomorrow. If this is unsuccessful, I recommended that she report to her local ED for further evaluation. She was in agreement with this plan. documented in this encounter Plan of Treatment Upcoming Encounters Date Type Specialty Care Team Description 01/07/2022 Office Visit [facility] Internal Medicine Ranjit Red P.A.-C. [address] [place] [phone] (Wo rk) 01/12/2022 Appointment Laboratory Medicine Matthew Jerome M.B.B.S., M.D. [address] [place] [phone] (Wo rk) 01/12/2022 Appointment Laboratory Medicine Adeline Frazier M.D., Ph.D. [address] [place] [phone] (Wo rk) 01/13/2022 Telemedicine Transplant Joel Tan L.I.C.S.W., M.S. W. [address] [place] [phone] (Wo rk) 01/13/2022 Telemedicine Transplant Matthew Jerome M.B.B.S., M.D. [address] [place] [phone] (Wo rk) 01/13/2022 Telemedicine Transplant Adeline Frazier M.D., Ph.D. [address] [place] [phone] (Wo rk) 01/28/2022 Office Visit Gastroenterology and Matthew Jerome, Hepatology Lilian Santillan [address] [place] [phone] (Wo rk) Scheduled Procedures Name Priority Associated Diagnoses Date/Time ESOPHAGOGASTRODUODENOSCOPY Cirrhosis Alc oholic (HCC) Hypertension Portal (HCC) ESOPHAGOGASTRODUODENOSCOPY Cirrhosis Alc oholic (HCC) Ascites Anemia Macrocytic Thrombocytopenia (HC C) Deficiency Coagulation Acquired (HCC) documented as of this encounter Visit Diagnoses Not on filedocumented in this encounter Care Teams Facing Cutting Machine Operator Relationship Specialty Start Date End Date Elsewhere, Pcp PCP - General Family Medicine 03/10/20 11/30/21 Ervin Schroeder MD Referring Provider Family Medicine 03/24/[address] [place] [phone] documented as of this encounter
--- OUTSIDE RECORDS SUMMARY | 2021-12-28 23:31 | XMS_ITS | Encounter Summary ---
:1990 Author Organization [facility] Address [address] [place] [address] Care Team Providers Name Role Phone Elsewhere, Pcp Primary Care Provider Unavailable Encounter Details Date Type Department Care Team Description 08/11/2021 Hospital Encounter Department of Mousa, Matthew Y, Edema Leg; Laboratory Medicine Joshua Santillan. Cirrhosis Alcoholic (HCC) in [place], [address] [place] [phone] [place], [place] [phone] (Work) [phone] Social History Tobacco Use Types Packs/Day Years [...] or relatives? How often do you attend taoism or Never 2021 mandaeism services? 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 celecoxib (CeleBREX) 200 Take 200 mg by 0 07/14/ 022 08/27/2021 mg capsule mouth 2 (two) times a day. ciprofloxacin (CIPRO) 500 Take 1 tablet (500 [...] mg Take 1 mg by mouth 0 03/ 09/30/2021 tablet at bedtime. sodium bicarbonate 650 [...] every morning. documented as of this encounter Miscellaneous Notes Result Encounter Note - Matthew Jerome M.B.B.S., M.D. - 08/13/2021 10:[address] [facility] Please can you notify the patient that BMP is stable and that we need to keep the same dose of diuretics that we increased last week: Lasix at 40 mg daily and spironolactone 100 mg daily? I ordered repeat BMP next week on 08/19, and I hope she can do it on 08/19 or 08/20 so that I can adjust the dose accordingly? Thanks documented in this encounter Plan of Treatment Upcoming Encounters Date Type Specialty Care Team Description 01/07/2022 Office Visit [facility] Ranjit Red P.A.-C. [address] [place] [phone] (Gwendolyn rahman) 01/12/2022 Appointment Laboratory Medicine Matthew Jerome M.B.B.S., M.Slick. [address] [place] [phone] (Gwendolyn rahman) 01/12/2022 Appointment Laboratory Medicine Adeline Frazier M.D., Ph.D. [address] [place] [phone] (Wo rk) 01/13/2022 Telemedicine Transplant Joel Tan L.I.C.S.W., M.S. W. [address] [place] [phone] (Wo rk) 01/13/2022 Telemedicine Transplant Matthew Jerome M.B.B.S., M.D. [address] [place] [phone] (Wo rk) 01/13/2022 Telemedicine Transplant Adeline Frazier M.D., Ph.D. [address] [place] [phone] (Wo rk) 01/28/2022 Office Visit Gastroenterology and Matthew Jerome, Hepatology VikBGraeme, MJules [address] [place] [phone] (Wo rk) Scheduled Procedures Name Priority Associated Diagnoses Date/Time ESOPHAGOGASTRODUODENOSCOPY Cirrhosis Alc oholic (HCC) Hypertension Portal (HCC) ESOPHAGOGASTRODUODENOSCOPY Cirrhosis Alc oholic (HCC) Ascites Anemia Macrocytic Thrombocytopenia (HC C) Deficiency Coagulation Acquired (HCC) documented as of this encounter Procedures Procedure Name Priority Date/Time Associated Diagnosis Comme nts BASIC METABOLIC Routine 08/11/2021 11:51 AM Edema Leg Results for this PANEL, S/P CDT Cirrhosis Alcoholic procedur e are in (HCC) the results section. documented in this encounter Results (ABNORMAL) Basic Metabolic Panel (08/11/2021 11:51 AM CDT) athologist Signature Potassium, P 4.2 3.6 - [...] CDT eGFR-Black/Afri >90 >=60 08/11/2021 [facility] can Grenadian mL/min/BSA 1:53 PM CDT Comment: ----ADDITIONAL INFORMATION---- [...] Organization Address City/State/ZIP Code Phon e Number [facility]- [address] [place] [address] [place] [address] System in [place] [address] documented in this encounter Visit Diagnoses Diagnosis Edema Leg Cirrhosis Alcoholic (HCC) documented in this encounter Care Teams Contractor General Building Relationship Specialty Start Date End Date Elsewhere, Pcp PCP - General Family Medicine 03/10/20 11/30/21 Ervin Schroeder MD Referring Provider Family Medicine 03/24/211979 [address] [place] [phone] documented as of this encounter
--- OUTSIDE RECORDS SUMMARY | 2021-12-28 23:31 | XMS_ITS | Encounter Summary ---
:1990 Author Organization [facility] Address [address] [place] [address] Care Team Providers Name Role Phone Elsewhere, Pcp Primary Care Provider Unavailable Reason for Referral Outpatient (Routine) - Authorized Specialty Diagnoses / Procedures Referred By Contact Refer red To Contact Emergency Medicine Diagnoses Edema Peripheral Elevated Bilirubin Margy Paul M.D. [address] [phone] Referral ID Status Reason Start Date Expiration Date Visits V isits Requested Authorized [id number] Authorized 08/03/2021 08/03/2022 1 1 Outpatient (Routine) - Authorized Specialty Diagnoses / Procedures Referred By Contact Refer red To Contact Emergency Medicine Diagnoses Edema Peripheral Margy Paul M.D. [address] [phone] Referral ID Status Reason Start Date Expiration Date Visits V isits Requested Authorized [id number] Authorized 08/03/2021 08/03/2022 1 1 Reason for Visit Reason Comments Leg Swelling Pt states she has had bilate ral lower leg swelling for the past week. Encounter Details Date Type Department Care Team Description 08/02/2021 - Emergency [facility] Juliana Stevens D.O. [address] [place] [phone] Edema Peripheral (Primary Dx); 08/03/2021 [facility] Margy Paul M.D. [address] [place] [address] Hypokalemia; Emergency Department Elevated Bilirubin; [address] [place] [address] Social History Tobacco Use Types Packs/Day [...] or relatives? How often do you attend buddhism or Never 2021 pentecostal services? Do you belong to any clubs or No 07/17/2021 organizations such as buddhism groups, unions, fraternal or athletic groups, or [...] or the highest technical, or vocational p [employer] degree you have received? 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 - 08/03/2021 6:41 AM CDT You have been evaluated in the [facility] Emergency Department today for your symptoms including leg swelling. Your evaluation did not show evidence of medical conditions requiring emergent intervention at this time. Please take an increased dose of furosemide and spironolactone for the next week. This may improve the swelling. Otherwise, please also schedule an appointment with your primary care physician. Return to the Emergency Department if you experience worsening or uncontrolled pain, fevers 100.4??For greater, shortness of breath, loss of consciousness, or any other concerning symptoms. Thank you for choosing us for your care. documented in this encounter Medications at Time [...] (CeleBREX) 200 Take 200 mg by 0 022 08/27/2021 mg capsule mouth 2 (two) [...] every morning. documented as of this encounter ED Notes Shyla Ojeda R.N. - 08/03/2021 7:13 AM CDT Pt was discharged from ED at 0700. Pt stated to sports book writer that her mother was on her way from [facility] pick her up at that time. Pt was still in lobby at 0900. Mother was not enroute-pt had never actually talked to her about a ride (had left a text message). Pt approached by sports book writer and asked what her plan was as hospital rules prohibit her from sitting in lobby until 1pm as that is when pt wants to go visit her friend on the unit. Pt then stated she didn't think she should have been discharged. Pt then informed by sports book writer that shehas the ability to check back in and be evaluated by another physician. Pt declined and stated she did not want more blood work or another IV. I just want to visit my friend. Pt again talked to someone on the phone and said Will you come and get me?. She then said her mother was on her way. Escorted to [facility] by security. Shyla Ojeda R.N. 08/03/21 0916 Margy Paul M.D. - 08/03/2021 6:41 AM CDT Alcoholic cirrhosis. On lactulose/rifaximin. On prophylactic ciprofloxacin. Here with b/l edema for over the past week to level of thighs. Recently discharged here, noted to have elevated bilirubin to 11.3, slightly downtrending now. Reports that her primary concern is pain from stretching of her legs. No beds here in [place]. Have had a conversation regarding admission vs discharge. Have opted to trial a dose of albumin here. Plan for uptitrating her diuretics with close follow-up from her PCP and from GI service. VITAL SIGNS BP (!) 85/47 Pulse 83 Temp 36.3 ??C (Temporal) Resp 14 Ht 157.5 cm Wt 58.2 kg SpO2 92% No BMI 23.47 kg/m?? Final Diagnoses: as of 08/03/21 0641 Edema Peripheral Hypokalemia Elevated Bilirubin Anemia Margy Paul M.D. 08/03/21 0647 Juliana Stevens D.O. - 08/02/2021 9:44 PM CDT SUBJECTIVE: CHIEF COMPLAINT/REASON FOR VISIT: Leg Swelling (Pt states she has had bilateral lower leg swelling for the past week. ) HISTORY OF PRESENT ILLNESS: 31-year-old female with a history of alcoholic cirrhosis, presents to the emergency department for evaluation of bilateral lower extremity edema. Patient states for the past week she has noticed increasing edema in her b/l LEs, worse than normal as it is now up to her thighs. She has been faithful with her medications including her diuretics and liver failure medications. Sober for over a year. Complains of pain in b/l LEs. Denies CP, SOB, F/C, N/V, abd pain, or other physical complaints. REVIEW OF SYSTEMS: Constitutional: Negative for chills and fever. HENT: Negative for congestion and rhinorrhea. Respiratory: Negative for cough and shortness of breath. Cardiovascular: Positive for leg swelling. Negative for chest pain. Gastrointestinal: Negative for abdominal pain, nausea and vomiting. Musculoskeletal: Positive for extremity pain. Neurological: Negative for tingling, weakness and numbness. All other systems reviewed and are negative. ALLERGIES/MEDICATIONS: Reviewed in medical record PAST MEDICAL/FAMILY/SOCIAL HISTORY: Medical History: Past Medical History: Diagnosis Date ??? Cirrhosis Of Liver NOS Patient Active Problem List Diagnosis Date Noted ??? Vomiting 07/26/2021 ??? Deficiency Coagulation Acquired (HCC) 07/07/2021 ??? Thrombocytopenia (HCC) 07/01/2021 ??? Alcohol Use Unspecified With Unspecified Alcohol Induced Disorder (HCC) ??? Patent Foramen Ovale (HCC) 03/19/2021 ??? Cirrhosis Alcoholic (HCC) 03/12/2021 ??? Change Mental Status 03/12/2021 ??? Acute Respiratory Failure (HCC) 03/12/2021 ??? Anemia Macrocytic 03/12/2021 ??? Long QT Syndrome 01/30/2021 ??? Hepatic Failure Unspecified Without Coma (HCC) 01/24/2021 ??? Abnormal Liver Function Test 01/23/2021 ??? Ascites 01/23/2021 ??? Pancreatitis Chronic (HCC) 01/23/2021 ??? 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 Gastroesophageal Reflux Disease Without Esophagitis 09/30/2018 ??? Anxiety Disorder Unspecified 01/19/2012 ??? Other Specified Behavioral And Emotional Disorders With Onset Usually Occurring In Childhood AndAdolescence 06/30/2007 ??? Rhinitis Allergic 04/06/2006 Surgical History: Past Surgical History: Procedure Laterality Date ??? ELBOW SURGERY Left 2018 per patient ??? TENDON REPAIR Left left foot per patient Family History: Reviewed in chart Social History: Social History Socioeconomic History ??? Marital status: Single ??? Highest education level: Associate degree: occupational, technical, or vocational program Tobacco Use ??? Smoking status: Current Every Day Smoker Packs/day: 0.25 Types: Cigarettes ??? Smokeless tobacco: Never Used Vaping Use ??? Vaping Use: never used Substance and Sexual Activity ??? Alcohol use: Not Currently ??? Drug use: Yes Types: Marijuana Comment: daily - medical card, plus non medical, last Social [...] and Family: Twice a week ??? Attends Cheondoism Services: Never ??? Active Member of Clubs [...] Unstable Housing in the Last Year: No Social History Substance and Sexual Activity Alcohol Use Not Currently Social History Substance and Sexual Activity Drug Use Yes ??? Types: Marijuana Comment: daily - medical card, plus non medical, last OBJECTIVE: INITIAL VITAL SIGNS: Initial Vitals Temperature Pulse Rate Heart Rate Resp Rate Blood Pressure SpO2 04/02/22 2118 04/02/22 2118 04/02/22 2300 08/02/21211708/02/21211708/02/212117 36.3 ??C 98 94 16 137/59 100 % Pain Score 08/02/212118 8 PHYSICAL EXAMINATION: Constitutional: Nursing note and vitals reviewed. She appears distressed (mild). Young female laying in bed, appears uncomfortable HENT: Head: Normocephalic and atraumatic. Nose: Nose normal. Mouth/Throat: Oropharynx is clear and moist. Mucous membranes are moist. Sublingual icterua Eyes: EOM are normal. Pupils are equal, round, and reactive to light. Scleral icterus (b/l) present. Neck: No JVD present. Cardiovascular: Normal rate, regular rhythm and normal heart sounds. Pulses are palpable. Capillary refill: takes less than 3 seconds, Edema: no edema noted Pulmonary/Chest: Effort normal and breath sounds normal. No respiratory distress. Abdominal: Soft. Bowel sounds are normal. exhibits no distension, no fluid wave and no ascites. There is no abdominal tenderness. There is no rigidity, no rebound and no guarding. Musculoskeletal: General: No deformity. Normal range of motion. Cervical back: Normal range of motion. Comments: Significant edema, 2+ pitting, b/l LE extending up to mid thighs. No weeping or open wounds. 2+ DP pulses. Normal ROM to all digits and joints but slow to complete 2/2 to pain. No asterixis b/l Neurological: Alert and oriented to person, place, and time. GCS eye subscore is 4. GCS verbal subscore is 5. GCS motor subscore is 6. Skin: Skin is warm, dry and normal color. Psychiatric: She has a normal mood and affect. Behavior is normal. @SCORINGTOOLS@ ED COURSE: ED Course as of 08/06/21 1123 Sun Aug 03, 2021 0154 Discussed outpatient management but did offer admission 2/2 to difficulty controlling pain, limited mobility, and increasing bilirubin over the past 4 weeks, although LFTs are actually slightly improved and within her baseline of past checks. Patient prefers to be admitted at this time. Unfortunately no beds here in [place] and patient prefers to wait until bed availability could potentially open up tomorrow rather than attempt transfer to [facility]. Transfer of patient's care pending admission to [facility] ED attending Dr. Paul. Final Diagnoses: as of 08/06/21 1123 Edema Peripheral Hypokalemia Elevated Bilirubin Anemia INTERVENTIONS: Medications fentaNYL injection 25 mcg (SUBLIMAZE) (25 mcg intravenous Given 08/02/21 2320) fentaNYL injection 50 mcg (SUBLIMAZE) (50 mcg intravenous Given 08/03/21 0126) LABS: Labs Reviewed CBC WITH DIFFERENTIAL, B - Abnormal Result Value Hemoglobin 7.8 (*) Hematocrit 22.8 (*) Erythrocytes 2.20 (*) MCV 103.6 (*) RBC Distrib Width 14.7 Platelet Count 60 (*) Leukocytes 5.4 Neutrophils 3.41 Lymphocytes 1.32 Monocytes 0.59 Eosinophils 0.07 Basophils 0.03 BASIC METABOLIC PANEL, S/P - Abnormal Potassium, P 3.4 (*) Sodium, P 132 (*) Chloride, P 98 Bicarbonate, P 24 Anion Gap, P 10 BUN (Blood Urea Nitrogen), P 9 Creatinine, P 0.56 (*) eGFR-Black/ >90 eGFR Non-Black/ >90 Calcium, Total, P 8.7 Glucose, P 135 AMMONIA - Abnormal Ammonia, P 84 (*) HEPATIC FUNCTION PANEL, S - Abnormal Bilirubin, Total, P 10.6 (*) Bilirubin, Direct, P 4.8 (*) Aspartate Aminotransferase (AST), P 69 (*) Alanine Aminotransferase (ALT), P 27 Alkaline Phosphatase, P 168 (*) Albumin, P 3.3 (*) Protein, Total, P 5.5 (*) PROTHROMBIN TIME (PT), P - Abnormal Prothrombin Time, P 29.9 (*) INR 2.6 NT-PRO B-TYPE NATRIURETIC PEPTIDE (BNP), S - Abnormal NT-Pro BNP, P 411 (*) CBC WITHOUT DIFFERENTIAL, B - Abnormal Hemoglobin 7.5 (*) Hematocrit 21.7 (*) Erythrocytes 2.08 (*) MCV 104.3 (*) RBC Distrib Width 14.7 Platelet Count 63 (*) Leukocytes 5.1 HEPATIC FUNCTION PANEL, S - Abnormal Bilirubin, Total, P 9.0 (*) Bilirubin, Direct, P 4.2 (*) Aspartate Aminotransferase (AST), P 62 (*) Alanine Aminotransferase (ALT), P 23 Alkaline Phosphatase, P 155 (*) Albumin, P 3.0 (*) Protein, Total, P 5.2 (*) HUMAN CHORIONIC GONADOTROPIN (HCG), EDDI, HCG, Quantitative, , P <0.5 LIPASE, S/P Lipase, P 14 URINALYSIS WITH MICROSCOPIC Source Urine, Urine, Midstream Clarity Clear Color Yellow Blood Negative Nitrite Negative Leukocyte Esterase Negative Protein Negative Glucose Negative Ketone Negative Bilirubin Negative pH 7.0 Specific Jane Lew 1.005 Urobilinogen 0.2 White Blood Cells None Seen Red Blood Cells None Seen Hyaline Casts None Seen Squamous Cells Occ-3 ECG: ECG 12 Lead Result Date: 08/04/2021 Normal sinus rhythm Nonspecific T wave abnormality Prolonged QT When compared with ECG of 26-JUL-2021 09:10, No significant change Revised Report ASSESSMENT AND PLAN: 31-year-old female with a history of alcoholic cirrhosis, presents to the emergency department for evaluation of bilateral lower extremity edema. Diagnostic testing as above. Patient having difficult time with pain control. Offered admission vs outpatient follow up and patient prefers admission at this time. Transfer of patient's care [facility] Dr. Paul. DIAGNOSIS: Final diagnoses: [R60.9] Edema Peripheral [E87.6] Hypokalemia [E80.7] Elevated Bilirubin [D64.9] Anemia Juliana Stevens D.O. 08/06/21 1123 documented in this encounter Plan of Treatment Upcoming Encounters Date Type Specialty Care Team Description 01/07/2022 Office Visit Community Internal Medicine Ranjit Red P.A.-C. [address] [place] [phone] (Wo rk) 01/12/2022 Appointment Laboratory Medicine Matthew Jerome M.B.BSumaS., M.D. [address] [place] [phone] (Wo rk) 01/12/2022 Appointment Laboratory Medicine Adeline Frazier M.D., Ph.D. [address] [place] [phone] (Wo rk) 01/13/2022 Telemedicine Transplant Joel Tan L.I.C.S.W., M.S. W. [address] [place] [phone] (Wo rk) 01/13/2022 Telemedicine Transplant Matthew Jerome M.B.B.S., M.D. [address] [place] [phone] (Wo rk) 01/13/2022 Telemedicine Transplant Adeline Frazier M.D., Ph.D. [address] [place] [phone] (Wo rk) 01/28/2022 Office Visit Gastroenterology and Matthew Jerome, Hepatology Tyrell, M.D. [address] [place] [phone] (Wo rk) Scheduled Procedures Name Priority Associated Diagnoses Date/Time ESOPHAGOGASTRODUODENOSCOPY Cirrhosis Alc oholic (HCC) Hypertension Portal (HCC) ESOPHAGOGASTRODUODENOSCOPY Cirrhosis Alc oholic (HCC) Ascites Anemia Macrocytic Thrombocytopenia (HC C) Deficiency Coagulation Acquired (HCC) Scheduled Referrals Name Type Priority Associated Order Schedule Diagnoses POST ED VISIT Family Outpatient Routine Edema Peripheral Exp ected: Medicine Referral 08/07/2021, Expires: 11/02/2022 POST ED VISIT Outpatient Routine Edema Peripheral Ordered: Gastroenterology and Referral Elevated Bilirubin 0 08/03/2021 Hepatology documented as of this encounter Procedures Procedure Name Priority Date/Time Associated Comments Diagnosis HEPATIC FUNCTION STAT 08/03/2021 4:27 AM Resul ts for this PANEL, S CDT procedure are i n the results section. CBC WITHOUT STAT 08/03/2021 4:27 AM Results f or this DIFFERENTIAL, B CDT procedure ar e in the results section. URINALYSIS WITH STAT 08/03/2021 12:07 Results for this MICROSCOPIC AM CDT procedure are i n the results section. HEPATIC FUNCTION STAT 08/02/2021 10:44 Results for this PANEL, S PM CDT procedure are i n the results section. NT-PRO B-TYPE STAT 08/02/2021 10:44 Results fo r this NATRIURETIC PEPTIDE PM CDT procedur e are in (BNP), S the results section. PROTHROMBIN TIME STAT 08/02/2021 10:44 Results for this (PT), P PM CDT procedure are i n the results section. CBC WITH STAT 08/02/2021 10:44 Results for this DIFFERENTIAL, B PM CDT procedure ar e in the results section. HUMAN CHORIONIC STAT 08/02/2021 10:44 Results for this GONADOTROPIN (HCG), PM CDT procedur e are in EDDI, the results section. LIPASE, S/P STAT 08/02/2021 10:44 Results for this PM CDT procedure are i n the results section. AMMONIA STAT 08/02/2021 10:44 Results for this PM CDT procedure are i n the results section. BASIC METABOLIC STAT 08/02/2021 10:44 Results for this PANEL, S/P PM CDT procedure are i n the results section. ECG STAT 08/02/2021 10:31 Results for this PM CDT procedure are i n the results section. documented in this encounter Results (ABNORMAL) Hepatic Function Panel (08/03/2021 4:27 AM CDT) [facility] Method Time Signature Bilirubin, Total, P 9.0 (H) <=1.2 08/03/2021 MKTO mg/dL 4:57 AM CDT Bilirubin, Direct, P 4.2 (H) 0.0 - 0.3 08/03/2021 MKTO mg/dL 4:57 AM CDT Aspartate 62 (H) 8 - 43 08/03/2021 MKTO Aminotransferase U/L 4:57 AM CDT (AST), P Alanine 23 7 - 45 08/03/2021 MKTO Aminotransferase U/L 4:57 AM CDT (ALT), P Alkaline 155 (H) 35 - 104 08/03/2021 MKTO Phosphatase, P U/L 4:57 AM CDT Albumin, P 3.0 (L) 3.5 - 5.0 08/03/2021 MKTO g/dL 4:57 AM CDT Protein, Total, P 5.2 (L) 6.3 - 7.9 08/03/2021 MKTO g/dL 4:57 AM CDT Specimen Anatomical Collection Method Collection Time Receive d Time (Source) Location / / Volume Laterality Blood (Blood, 08/03/2021 4:27 AM 08/04/19 4:38 Venous) CDT AM CDT Margy Paul M.D. LAB BLOOD ADD-ON Performing Organization Address [facility] Phon e Number [facility] [address] [place] [id number] [place] [address] System [address] (ABNORMAL) CBC without Differential (08/03/2021 4:27 AM CDT) [facility] Method Time Signature Hemoglobin 7.5 (L) 11.6 - 08/03/2021 MKTO 15.0 g/dL 4:43 AM CDT Hematocrit 21.7 (L) 35.5 - 08/03/2021 MKTO 44.9 % 4:43 AM CDT Erythrocytes 2.08 (L) 3.92 - 08/03/2021 MKTO 5.13 4:43 AM CDT x10(12)/L MCV 104.3 (H) 78.2 - 08/03/2021 MKTO 97.9 fL 4:43 AM CDT RBC Distrib Width 14.7 12.2 - 08/03/2021 MKTO 16.1 % 4:43 AM CDT Platelet Count 63 (L) 157 - 371 08/03/2021 MKTO x10(9)/L 4:43 AM CDT Leukocytes 5.1 3.4 - 9.6 08/03/2021 MKTO x10(9)/L 4:43 AM CDT Specimen Anatomical Collection Method Collection Time Receive d Time (Source) Location / / Volume Laterality Blood (Blood, 08/03/2021 4:27 AM 08/04/19 22 4:38 Venous) CDT AM CDT Margy Paul M.D. LAB BLOOD ADD-ON Performing Organization Address City/[facility]/ZIP Code Phon e Number [facility]- [address] [place] [phone] [place] [address] System in [place] [address] [facility] Urinalysis with Microscopic: Urine, Midstream (08/03/2021 12:07 AM CDT) Analysis Performed At Patho logist Time Signature Source Urine, Urine, 08/03/2021 MKTO Midstream 12:13 AM CDT Clarity Clear Clear 08/03/2021 MKTO 12:13 AM CDT Color Yellow 08/03/2021 MKTO 12:13 AM CDT Comment: ----REFERENCE VALUE---- Colorless Yellow Priscilla Blood Negative Negative 08/03/2021 12:13 AM CDT MKTO Nitrite Negative Negative 08/03/2021 12:13 AM CDT MKTO Leukocyte Esterase Negative Negative 08/03/2021 12:13 AM C DT MKTO Protein Negative mg/dL 08/03/2021 12:13 AM CDT MKTO Comment: ----REFERENCE VALUE---- Negative Trace Glucose Negative Negative mg/dL 08/03/2021 12:13 AM CDT M KTO Ketone Negative Negative mg/dL 08/03/2021 12:13 AM CDT M KTO Bilirubin Negative Negative 08/03/2021 12:13 AM CDT MKTO pH 7.0 5.0 - 8.0 08/03/2021 12:13 AM CDT MKTO Specific Jane Lew 1.005 1.001 - 1.035 08/03/2021 12:13 AM CDT MKTO Urobilinogen 0.2 0.2 - 1.0 mg/dL 08/03/2021 12:13 AM C DT MKTO White Blood Cells None Seen /hpf 08/03/2021 12:55 AM CD T MKTO Comment: ----REFERENCE VALUE---- Males: 0-3 Females: 0-10 Unknown: 0-10 Red Blood Cells None Seen 0 - 2 /hpf 08/03/2021 12:55 AM CDT MKTO Hyaline Casts None Seen /lpf 08/03/2021 12:55 AM CDT MK TO Squamous Cells Occ-3 /hpf 08/03/2021 12:55 AM CDT M KTO Specimen Anatomical Collection Method Collection Time Receive d Time (Source) Location / / Volume Laterality Urine (Urine, 08/03/2021 12:07 08/03/2021 Midstream) AM CDT 12:10 AM CDT Juliana Stevens D.O. LAB URINE ORDERABLES Performing Organization Address [facility] Phon e Number [facility]- [address] [place] [phone] [place] [address] (ABNORMAL) NT-Pro B-Type Natriuretic Peptide (BNP) (08/02/2021 10:44 PM CDT) P athologist Signature NT-Pro BNP 411 (H) <=140 pg/mL 08/02/2021 MK 11:20 PM CDT Comment: NT-proBNP values less than 300 pg/mL hav e a 99% negative predictive value for excluding acute congestive heart jessica lure. A cutoff of 1200 pg/mL for patients with an eGFR<60 yields a diagno stic sensitivity and specificity of 89% and 72% for acute congestive heart f ailure. ??NT-proBNP values greater than 450 pg/mL are consistent with CHF i n adults under 50 years of age. Biotin has been identified by the chantelle lockett as a potential interfering substance. ??Higher concentr ations of biotin may be found in multivitamins, hair/nail supple ments, and workout supplements. ??If the result does not ma [facility] clinical observations, repeat testing after patient refrains fr om the use of supplements for at least 12 hours. Specimen Anatomical Collection Method Collection Time Receive d Time (Source) Location / / Volume Laterality Blood (Blood, 08/02/2021 10:44 08/02/2021 Venous) PM CDT 10:50 PM CDT Juliana Stevens D.O. LAB BLOOD ADD-ON Performing Organization Address City/[facility]/[place]IP [facility] [place] Number [facility]- [address] [place] [phone] [place] [address] [address] (ABNORMAL) Prothrombin Time (PT) (08/02/2021 10:44 PM CDT) Patholo gist Method Time Signature Prothrombin 29.9 (H) 9.4 - 12.5 08/02/2021 MKTO Time, P sec 11:57 PM CDT INR 2.6 0.9 - 1.1 08/02/2021 MKTO 11:57 PM CDT Comment: ----ADDITIONAL INFORMATION---- Standard intensity warfarin therapeutic range: 2.0 to 3.0 ?? High intensity warfarin therapeutic rang e: 2.5 to 3.5 Specimen Anatomical Collection Method Collection Time Receive d Time (Source) Location / / Volume Laterality Blood (Blood, 08/02/2021 10:44 08/02/2021 Venous) PM CDT 10:50 PM CDT Juliana Stevesn D.O. LAB BLOOD ADD-ON Performing Organization Address City/[facility] Phon e Number [address] [phone] [place] [address] [address] Lipase (08/02/2021 10:44 PM CDT) P athologist Signature Lipase, P 14 13 - 60 U/L 08/02/2021 MKTO 11:31 PM CDT Specimen Anatomical Collection Method Collection Time Receive d Time (Source) Location / / Volume Laterality Blood (Blood, 08/02/2021 10:44 08/02/2021 Venous) PM CDT 10:50 PM CDT Juliana Stevens D.O. LAB BLOOD ADD-ON Performing Organization Address City/[facility] Phon e Number [address] [address] [facility] [place] [id number] System in [address] (ABNORMAL) Hepatic Function Panel (08/02/2021 10:44 PM CDT) Patholo gist Method Time Signature Bilirubin, Total, P 10.6 (H) <=1.2 08/02/2021 MKTO mg/dL 11:31 PM CDT Bilirubin, Direct, P 4.8 (H) 0.0 - 0.3 08/02/2021 MKTO mg/dL 11:31 PM CDT Aspartate 69 (H) 8 - 43 08/02/2021 MKTO Aminotransferase U/L 11:31 PM (AST), P CDT Alanine 27 7 - 45 08/02/2021 MKTO Aminotransferase U/L 11:31 PM (ALT), P CDT Alkaline 168 (H) 35 - 104 08/02/2021 MKTO Phosphatase, P U/L 11:31 PM CDT Albumin, P 3.3 (L) 3.5 - 5.0 08/02/2021 MKTO g/dL 11:31 PM CDT Protein, Total, P 5.5 (L) 6.3 - 7.9 08/02/2021 MKTO g/dL 11:31 PM CDT Specimen Anatomical Collection Method Collection Time Receive d Time (Source) Location / / Volume Laterality Blood (Blood, 08/02/2021 10:44 08/02/2021 Venous) PM CDT 10:50 PM CDT Juliana Stevens D.O. LAB BLOOD ADD-ON Performing Organization Address [facility] Phon e Number [address] [id number] [place] [address] (ABNORMAL) Ammonia (08/02/2021 10:44 PM CDT) P athologist Signature Ammonia, P 84 (H) <=51 08/02/2021 [facility] mcmol/L 11:18 PM CDT Specimen Anatomical Collection Method Collection Time Receive d Time (Source) Location / / Volume Laterality Blood (Blood, 08/02/2021 10:44 08/02/2021 Venous) PM CDT 10:50 PM CDT Juliana Stevens D.O. LAB BLOOD NON ADD-ON Performing Organization Address [facility] Phon e Number [address] [address] [facility] [place] [phone] System [address] (ABNORMAL) Basic Metabolic Panel (08/02/2021 10:44 PM CDT) Analysis Performed At Patho logist Time Signature Potassium, P 3.4 (L) 3.6 - 5.2 08/02/2021 [facility] mmol/L 11:31 PM CDT Sodium, P 132 (L) 135 - 145 08/02/2021 [facility] mmol/L 11:31 PM CDT Chloride, P 98 98 - 107 08/02/2021 [facility] mmol/L 11:31 PM CDT Bicarbonate, P 24 22 - 29 08/02/2021 [facility] mmol/L 11:31 PM CDT Anion Gap, P 10 7 - 15 08/02/2021 [facility] 11:31 PM CDT BUN (Blood Urea 9 6 - 21 08/02/2021 [facility] Nitrogen), P mg/dL 11:31 PM CDT Creatinine 0.56 (L) 0.59 - 08/02/2021 [facility] 1.04 mg/dL 11:31 PM CDT eGFR-Black/Afri >90 >=60 08/02/2021 [facility] can Nepalese mL/min/BSA 11:31 PM CDT Comment: ----ADDITIONAL INFORMATION---- Estimated GFR calculated using the 2009 CKD_EPI creatinine equation. eGFR Non-Black/ >90 >=60 mL/min/BSA 08/02/2021 11:31 PM CDT MKTO Comment: ----ADDITIONAL INFORMATION---- Estimated GFR calculated using the 2009 CKD_EPI creatinine equation. Calcium, Total, P 8.7 8.6 - 10.0 mg/dL 08/02/2021 11:3 1 PM CDT MK[facility] Glucose, P 135 70 - 140 mg/dL 08/02/2021 11:31 PM CDT MKTO Specimen Anatomical Collection Method Collection Time Receive d Time (Source) Location / / Volume Laterality Blood (Blood, 08/02/2021 10:44 08/02/2021 Venous) PM CDT 10:50 PM CDT Juilana Stevens D.O. LAB BLOOD ADD-ON Performing Organization Address City/State/ZIP Code Phon e Number [facility] [address] [place] [phone] [place] [address] System in [place] [address] [place] [address] hCG (Human Chorionic Gonadotropin), Quantitative, (08/02/2021 10:44 PM CDT) P athologist Signature HCG, <0.5 <5 IU/L 08/02/2021 [facility] Quantitative, 11:58 PM CDT , P Comment: Biotin has been identified by the chantelle lockett as a potential interfering substance. ??Higher concentr ations of biotin may be found in multivitamins, hair/nail supple ments, and workout supplements. ??If the result does not ma [facility] clinical observations, repeat testing after patient refrains fr om the use of supplements for at least 12 hours. Specimen Anatomical Collection Method Collection Time Receive d Time (Source) Location / / Volume Laterality Blood (Blood, 08/02/2021 10:44 08/02/2021 Venous) PM CDT 10:50 PM CDT Juliana Stevens D.O. LAB BLOOD ADD-ON Performing Organization Address City/State/ZIP Code Phon e Number [facility]- [address] [place] [phone] [place] [address] [place] [address] [address] (ABNORMAL) CBC with Differential, Blood (08/02/2021 10:44 PM CDT) [facility] Method Time Signature Hemoglobin 7.8 (L) 11.6 - 08/02/2021 [facility] 15.0 g/dL 10:54 PM CDT Hematocrit 22.8 (L) 35.5 - 08/02/2021 [facility] 44.9 % 10:54 PM CDT Erythrocytes 2.20 (L) 3.92 - 08/02/2021 [facility] 5.13 10:54 PM CDT x10(12)/L MCV 103.6 (H) 78.2 - 08/02/2021 [facility] 97.9 fL 10:54 PM CDT RBC Distrib Width 14.7 12.2 - 08/02/2021 [facility] 16.1 % 10:54 PM CDT Platelet Count 60 (L) 157 - 371 08/02/2021 [facility] x10(9)/L 10:54 PM CDT Leukocytes 5.4 3.4 - 9.6 08/02/2021 [facility] x10(9)/L 10:54 PM CDT Neutrophils 3.41 1.56 - 08/02/2021 [facility] 6.45 10:54 PM CDT x10(9)/L Lymphocytes 1.32 0.95 - 08/02/2021 [facility] 3.07 10:54 PM CDT x10(9)/L Monocytes 0.59 0.26 - 08/02/2021 [facility] 0.81 10:54 PM CDT x10(9)/L Eosinophils 0.07 0.03 - 08/02/2021 [facility] 0.48 10:54 PM CDT x10(9)/L Basophils 0.03 0.01 - 08/02/2021 [facility] 0.08 10:54 PM CDT x10(9)/L Specimen Anatomical Collection Method Collection Time Receive d Time (Source) Location / / Volume Laterality Blood (Blood, 08/02/2021 10:44 08/02/2021 Venous) PM CDT 10:50 PM CDT Juliana Stevens D.O. LAB BLOOD ADD-ON Performing Organization Address City/State/ZIP Code Phon e Number [facility]- [address] [place] [id number] [facility] [place] [address] System in [place] [address] [facility] ECG 12 Lead (08/02/2021 10:31 PM CDT) P athologist Signature Ventricular Rate 86 BPM MUSE ECG/Min [place] Interval 166 ms MUSE QRSD Interval 92 ms MUSE QT Interval 404 ms MUSE QTC Interval 484 ms MUSE P [place] 61 degrees MUSE R [place] 56 degrees MUSE T Wave [place] 32 degrees MUSE Specimen Anatomical Collection Method Collection Time Receive d Time (Source) Location / / Volume Laterality 08/02/2021 10:31 08/04/2021 PM CDT 11:43 AM CDT Impressions MUSE - 08/02/2021 10:40 PM CDT Normal sinus rhythm Nonspecific T wave abnormality Prolonged QT When compared with ECG of 26-JUL-2021 09 :10, No significant change Revised Report Narrative This result has an attachment that is no t available. Procedure Note Prosper Campbell M.D. - 08/04/2021Formatt ing of this note might be different from the original. IMPRESSION: Normal sinus rhythm Nonspecific T wave abnormality Prolonged QT When compared with ECG of 26-JUL-2021 09 :10, No significant change Revised Report Juliana Stevens D.O. ECG ORDERABLES Performing Organization Address City/State/ZIP Code Phon e Number MUSE MUSE NA documented in this encounter Visit Diagnoses Diagnosis Edema Peripheral - Primary Hypokalemia Elevated Bilirubin Anemia documented in this encounter Administered Medications Inactive Administered Medications - up to 3 most recent administrations Medication Order MAR Action Action Date Dose Rate Site albumin human 25 % injection 12.5 New Bag 08/03/2021 5:45 AM CDT 1 2.5 g g 12.5 g, intravenous, Once, On 08/03/21 at 0538, For 1 dose, If no infusion rate specified: Administer the 25% solution at 100 mL/hr fentaNYL injection 25 mcg (SUBLIMAZE) Given 08/02/2021 11:20 PM CDT 25 mcg 25 mcg, intravenous, Once, On 08/02/21 at 2222, For 1 dose fentaNYL injection 50 mcg (SUBLIMAZE) Given 08/03/2021 1:26 AM CDT 50 mcg 50 mcg, intravenous, Once, On 08/03/21 at 0055, For 1 dose gabapentin capsule 600 mg (NEURONTIN) Given 08/03/2021 5:38 AM CDT 600 mg 600 mg, oral, Once, On 08/03/21 at 0530, For 1 dose sodium chloride 0.9 % injection 10 mL 10 mL, intravenous, As needed, line care, Starting on 08/02/21 at 2143, Peripheral Intravenous Catheter and Rapid Infusion Cat heter, prior to blood sampling, post blood transfusion or post blood samplin g sodium chloride 0.9 % injection 3 mL 3 mL, intravenous, As needed, line care, Starting on 08/02/21 at 2143, Prior to and following infusion and between multi ple consecutive infusions: sodium chloride 0.9 % injection sodium chloride 0.9 % injection 3 mL 3 mL, intravenous, Every 12 hours scheduled, First dos e on 08/03/21 at 0900, Peripheral Intravenous Catheter and Rapi d Infusion Catheter, when no infusion to maintain patency documented in this encounter Active and Recently Administered Medications Times are shown in CDT. Scheduled Medication Order 08/01/2021 08/02/2021 08/03/2021 albumin human 25 % injection 12.5 g (COMPLETED) 0545 (New Bag - Provider: Shyla Ojeda R.N.)0620 (Stopped - Provider: Shyla Ojeda R.N.) 12.5 g, intravenous, Once, On 08/03/21 at 0538, For 1 dose, If no infusion rate specified: Administer the 25% solution at 100 mL/hr fentaNYL injection 25 mcg (SUBLIMAZE) (COMPLETED) 2320 (Given - Provider: Rachel Vivar R.N.) 25 mcg, intravenous, Once, On 08/02/21 at 2222, For 1 dose fentaNYL injection 50 mcg (SUBLIMAZE) (COMPLETED) 0126 (Given - Provider: Rachel Vivar R.N.) 50 mcg, intravenous, Once, On 08/03/21 at 0055, For 1 dose gabapentin capsule 600 mg (NEURONTIN) (COMPLETED) 0538 (Given - Provider: Shyla Ojeda R.N.) 600 mg, oral, Once, On 08/03/21 at 0530, For 1 dose sodium chloride 0.9 % injection 3 mL 3 mL, intravenous, Every 12 hours schedu led, First dose on 08/03/21 at 0900, Peripheral Intravenous Catheter and Rapid Infusion Catheter, when no infusion to maintain patency PRN Medication Order 08/01/2021 08/02/2021 08/03/2021 sodium chloride 0.9 % injection 10 mL 10 mL, intravenous, As needed, line care , Starting on 08/02/21 at 2143, Peripheral Intravenous Catheter and Rapid Infusion Catheter, prior to blood sampling, post blood transfusion or post blood sampling sodium chloride 0.9 % injection 3 mL 3 mL, intravenous, As needed, line care, Starting on 08/02/21 at 2143, Prior to and following infusion and between multiple consecutive infusions: sodium chloride 0.9 % injection documented in this encounter Care Teams Tractor Operator Battery Relationship Specialty Start Date End Date Elsewhere, Pcp PCP - General Family Medicine 03/10/20 11/30/21 Ervin Schroeder MD Referring Provider Family Medicine 03/24/[address] [place] [phone] documented as of this encounter
--- OUTSIDE RECORDS SUMMARY | 2021-12-28 23:31 | XMS_ITS | Encounter Summary ---
:1990 Author Organization [facility] Address [address] [place] [address] Care Team Providers Name Role Phone Elsewhere, Pcp Primary Care Provider Unavailable Reason for Visit Reason Comments Referral - Liver Txp Encounter Details Date Type Department Care Team Description 08/14/2021 Clinical Department of Matthew Jerome Referral - Angelica er Communication Gastroenterology in [place] [address] [facility] [address] [place] [address] [place] [phone] Social History Tobacco Use Types Packs/Day Years [...] do you attend rastafari or Never 2021 bahai services? Do you belong to any clubs or No 07/17/2021 organizations such as rastafari groups, unions, fraNewsela or athletic groups, or school groups? How [...] place to sleep or slept in a prison (including now)? Education Answer Date Recorded What is the highest level of school Associate degree: ruth barker, 07/16/2021 you have completed or the highest technical, or vocational p [facility] degree you have received? 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 Please advise if there is another time after the 20 +days that we can schedule them to see you and still get all testing done after 20 days but before they see you. Do you want to see when next hospital rounds are? Telephone Encounter - Adry Peterson - 08/31/2021 9:25 AM CDT Good Morning all, I have patient scheduled for LTE consults, labs and short renal clearance in [place] 09/15-09/[address] Jerome wrapping 09/17. After speaking with patient, our hopes are that the remaining testing can be done in [place] the week prior (09/08). Mihaela, I have left the orders in our WQ and they say LTE [place] on them. Feel free to reroute the orders as neccessary! Let [place] [facility] know if you are unable to schedule testing 09/08 week and we can try scheduling the test in [place] instead. Our TTE echoes are going out to mid October right now so try your best on that one!! Please let us know if you need anything else. We are also available to call patient to confirm apptsonce you have your testing scheduled. Thank you! Telephone Encounter - Adry Peterson - 08/14/2021 7:15 AM CDT ----- Message from Tyrell Zheng M.D. sent at 08/13/2021 6:55 PM CDT ----- Regarding: Liver transplant [id number] Dear team Kindly please submit [id number] for this patient. I had an initial visit with her, and I hope we can complete a liver transplant evaluation on her behalf. I will see her back for a wrap-up visit here in [place]. She will need full workup and consultations, especially Cardiology (abnormal echo 2020) and transplant psychiatry given her psych history. Thanks OM documented in this encounter Plan of Treatment Upcoming Encounters Date Type Specialty Care Team Description 01/07/2022 Office Visit Community Internal Medicine Ranjit Red P.A.-C. [address] [place] [address] [place] [phone] (Wo rk) 01/12/2022 Appointment Laboratory Medicine Matthew Jerome M.B.B.S., MJules [address] [place] [phone] (Wo rk) 01/12/2022 Appointment Laboratory Medicine Adeline Frazier M.D., Ph.D. [address] [place] [phone] (Wo rk) 01/13/2022 Telemedicine Transplant Joel Tan L.I.C.S.W., M.S. W. [address] [place] [phone] (Wo rk) 01/13/2022 Telemedicine Transplant Matthew Jerome M.B.B.S., MCee. [address] [place] [phone] (Wo rk) 01/13/2022 Telemedicine Transplant Adeline Frazier M.D., Ph.D. [address] [place] [phone] (Wo rk) 01/28/2022 Office Visit Gastroenterology and Matthew Jerome, Hepatology Tyrell, MJules [address] [place] [phone] (Wo rk) Scheduled Procedures Name Priority [...] documented as of this encounter Care Teams Business Services Director Relationship Specialty Start Date End Date Elsewhere, Pcp PCP - General Family Medicine 03/10/20 11/30/21 [facility] 08/25/21 Ervin Schroeder MD Referring Provider Family Medicine 03/24/[address] [place] [phone] documented as of this encounter
--- OUTSIDE RECORDS SUMMARY | 2021-12-28 23:31 | XMS_ITS | Encounter Summary ---
:1990 Author Organization [facility] Address [address] [place] [id number] Care Team Providers Name Role Phone Elsewhere, Pcp Primary Care Provider Unavailable Reason for Visit Auth/Cert Specialty Diagnoses / Procedures Referred By Contact Refer red To Contact Diagnoses Vomiting Abdominal pain Procedures n/a Referral ID Status Reason Start Date Expiration Date Visits Requ ested Visits Authorized [id number] 1 1 Encounter Details Date Type Department Care Team Description 07/26/2021 - Hospital Encounter [facility] Radha Bennett M. D. [address] [place] [id number] Vomiting (Primary 07/27/2021 [facility] Serene Montgomery M.D. 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 - 07/27/2021 12:10 PM CDT DISCHARGE SUMMARY BRIEF OVERVIEW Hospital: [facility] Discharge Provider: Serene Montgomery M.D. Primary Team: [facility] Medicine 1 ([facility]) Primary Care Providers: Elsewhere, Pcp (General) No address on file Primary Care Provider Phone Number: None Primary Care Provider Fax Number: None Other Providers: None Admission Date: 07/26/2021 Discharge Date: 07/27/2021 PRINCIPAL DIAGNOSIS Vomiting SECONDARY DIAGNOSES Principal Problem: Vomiting Resolved Problems: * No resolved hospital problems. * DISCHARGE DISPOSITION Home or Self Care [1] ACTIVE ISSUES REQUIRING FOLLOW UP For Patient 1. Please return to hospital if you develop further nausea, any abdominal pain, or abdominal tenderness to palpation 2. Please see your PCP within 1 week of hospital discharge for a repeat check of your hemoglobin For Provider 1. Please repeat Ms. Carias' hemoglobin to ensure no further decrease is seen 2. During her hospitalization, was requesting a further prescription for oxycodone. I wouldbe grateful if you could discuss this at your upcoming appointment. None OUTPATIENT FOLLOW UP Scheduled Appointments 08/28/2021 4:40 PM LAB 01 [facility] Laboratory Medicine 08/29/2021 4:00 PM FAM COVID PRE SCREEN [facility] Family Medicine For appointment details refer to your Patient Appointment Guide. TEST RESULTS PENDING AT DISCHARGE Pending Labs Order Current Status Haptoglobin Collected (07/27/21 1140) Folate In process Morphology Evaluation (Special Smear) In process Peripheral Smear Interpretation In process Vitamin B12 Assay In process DETAILS OF HOSPITAL STAY REASON FOR ADMISSION Vomiting HOSPITAL COURSE Ms. Catia Carias is a 31 y.o. female who presents with one week of nausea and vomiting. Her medical comorbidities are significant for alcohol-associated cirrhosis, current cigarette smoking, patent foramen ovale, chronic pancreatitis, GERD, generalized anxiety disorder, depression, migraines and an eating disorder. She says she was in her normal state of health until about 1 week ago when she started having nauseaand vomiting several times per day. She did not know what caused this to come on, but she otherwise felt generally well. The nausea and vomiting caused her to have a decreased appetite and she was having difficulty tolerating her many oral medications. The vomiting has not had any blood in it. She hasnot had any diarrhea or ever had blood in her stools. She has also felt a new abdominal discomfort over the past week which she says does not feel like ascites, and has been slightly more sleepy than usual. She presented to [facility] emergency department on 07/25 with nausea, vomiting, and abdominal pain (although patient mentions that her severe pain was actually from her legs). Labs were notable for hemoglobin of 7.4 (near baseline), and a bilirubin of 8.9. Bedside ultrasound showed small amount of a scitic fluid, however due to patient discomfort the procedure was aborted and she received morphine and ceftriaxone. Due to a lack of available local hospital beds, she was transferred to [facility] for further investigation and management. On presentation at [facility], she was in stable condition with vital signs within normallimits. Examination was notable for scleral icterus and slight abdominal distension. She mentions that her vomiting and nausea have self resolved and she feels like she is back to normal. She again declined paracentesis unless this was performed under general anesthetic which was unfortunately unavailable over the weekend. With this in mind, given her symptom resolution and low likelihood of a paracentesis being diagnostic 3 days after antibiotics, she was discharged from our care with instructions to return urgently to hospital should she develop any further nausea, abdominal pain, somnolence, confusion, or abdominal tenderness for further assessment. Of note, Ms. Gallegos hemoglobin was low during admission between 6.8 and 8.5, which is close to her baseline. She received 1 unit of pRBC during her admission. Laboratory workup for hemolytic causes of anemia was unrevealing. She was started on a folic acid supplement given her previous deficiency, and instructed to see her PCP for repeat check of her hemoglobin. Folic acid and B12 levels were drawn but pending at the time of hospital discharge. EXAMINATION Gen: comfortable appearing female lying in hospital bed. Jaundice and scleral icterus noted Peripheries: warm, well perfused, radial pulses palpable bilaterally Cardiovascular: heart sounds 1 and 2 heard, systolic murmur noted at left sternal border 2nd ICS Respiratory: chest clear to auscultation Abdomen: soft, non-tender to palpation, distended, positive shifting dullness. CONSULTS ORDERED DURING THIS ADMISSION IP CONSULT TO CARE MANAGEMENT CONDITION AT DISCHARGE stable Discharge instructions were provided to the patient and caregiver(s). documented in this encounter Medications at Time [...] mouth daily. furosemide (LASIX) 20 mg Take 1 tablet (20 30 tablet 1 03/0408/03/2021 tablet mg total) by mouth daily. gabapentin [...] 2 (two) times a day. spironolactone Take 1 tablet (50 30 tablet 1 03/24/202107/2021 (ALDACTONE) 50 mg tablet mg total) by mouth daily. vitamin A 3,000 mcg Take 1 capsule 50 capsule 0 07/21/2021 0 10/08/2021 (10,000 Unit) capsule (3,000 mcg total) by mouth 3 (three) times a week for 50 doses. Vitamin B-1, mononitrate, Take 100 mg by 0 202109/30/2021 100 mg tablet mouth every morning. documented as of this encounter Progress Notes Soha Patel - 07/27/2021 10:25 AM CDT Images from the original note were not included. Admission Medication History Note Adherence issues: Unable to assess Medication list source: Patient Medication related information: -Added: celecoxib, diazepam, sodium bicarb (hasn't been filled since May), hydroxyzine -New medications that patient hasn't started yet: ropinirole, vitamin A -Gabapentin: dose increased to 600 mg every morning, 600 mg in the afternoon, and 900 mg at bedtime -ondansetron and promethazine patient rarely uses because they don't work -oxycodone: patient states dose is 1 tab Q6h prn Prior to Admission Medications Med List Status: Pharmacy Complete Set By: Soha Patel at 07/27/2021 10:25 AM Taking? Last Dose Informant Start Date End Date LT celecoxib (CeleBREX) 200 mg capsule 07/14/21 -- Take 200 mg by mouth 2 (two) times a day. ciprofloxacin (CIPRO) 500 mg tablet 03/25/21 -- Take 1 tablet (500 mg total) by mouth every morning before breakfast Indications: Prophylaxis, medical. diazePAM (VALIUM) 5 mg tablet 07/16/21 -- Take 5 mg by mouth at bedtime as needed. ergocalciferol (DRISDOL) 50,000 Unit capsule 04/01/21 -- Take 50,000 Units by mouth once a week. folic acid 1 mg tablet () 03/24/21 05/23/21 Take 1 tablet (1 mg total) by mouth daily. furosemide (LASIX) 20 mg tablet 03/24/21 -- Take 1 tablet (20 mg total) by mouth daily. gabapentin (NEURONTIN) 300 mg capsule 05/27/21 -- Take by mouth 3 (three) times a day. Takes 600 mg in the morning, 600 mg in the afternoon, and 900 mg at bedtime. hydrOXYzine (ATARAX) 25 mg tablet 07/25/21 -- Take 25-50 mg by mouth at bedtime as needed. lactulose (CHRONULAC) 10 gram/15 mL solution 04/23/21 -- Take 45 mL by mouth 3 (three) times a day. magnesium oxide (MAG-OX) 400 mg (241.3 mg magnesium) tablet 03/24/21 -- Take 1 tablet (400 mg total) by mouth 2 (two) times a day before breakfast and dinner. ondansetron ODT (ZOFRAN-ODT) 8 mg disintegrating tablet 04/23/21 -- Take 1 tablet by mouth 3 (three) times a day as needed. oxyCODONE (ROXICODONE) 5 mg immediate release tablet 06/01/21 -- Take 5 mg by mouth every 6 (six) hours as needed for pain. pantoprazole (PROTONIX) 40 mg EC tablet 03/24/21 -- Take 1 tablet (40 mg total) by mouth every morning before breakfast. promethazine (PHENERGAN) 25 mg tablet 05/27/21 -- Take 25 mg by mouth every 6 (six) hours as needed for nausea. rOPINIRole (REQUIP) 1 mg tablet 07/17/21 -- Take 1 mg by mouth at bedtime. Notes: New medication that patient has not started taking yet. sodium bicarbonate 650 mg tablet -- -- Take 650 mg by mouth 2 (two) times a day. spironolactone (ALDACTONE) 50 mg tablet 03/24/21 -- Take 1 tablet (50 mg total) by mouth daily. vitamin A 3,000 mcg (10,000 Unit) capsule 07/21/21 11/13/21 Take 1 capsule (3,000 mcg total) by mouth 3 (three) times a week for 50 doses. Notes: New medication that patient has not started taking yet Vitamin B-1, mononitrate, 100 mg tablet 05/27/21 -- Take 100 mg by mouth every morning. Xifaxan 550 mg tablet 07/21/21 10/19/21 Take 1 tablet (550 mg total) by mouth 2 (two) times a day. Nicole Dalal Pharm.D., R.Ph. - 07/27/2021 9:40 AM CDT Pharmacist Progress Note Reason for admission: Nausea and vomiting PMH: etoh cirrhosis, chronic pancreatitis, GERD, APPLE, depression, migraines and eating disorder, PFO Past Medical History: Diagnosis Date ??? Cirrhosis Of Liver NOS OBJECTIVE Neuro: Nausea and vomiting have resolved - cause unclear. Insomnia, melatonin prn, hydroxyzine 25mg prn qhs. Bilateral leg pain - gabapentin 300 TID, prn APAP, prn oxycodone, triple cream. CV: PFO with atrial shunt - hasn't had follow up with CV yet. Neph: Estimated Creatinine Clearance: 141.3 mL/min (A) (by C-G formula based on SCr of 0.55 mg/dL (L)). Malnutrition - MVI, Thiamine, Vit A, Mag, Folic acid. GI: Cirrhosis - Being assessed for liver transplant in the future. At risk for SBP and GI recommended SBP prophy indefinately. Platelets 65, INR 2.8. lasix 20/spironolactone 50mg, lactulose 30g TID, Rifaxamin PPX: cipro, sq heparin, PPI Medication Reconciliation: ?? Held: celebrex 200mg BID, diazepam 5mg QHS prn, sodium bicarb (hasn't been filled since May) ?? Changed: lactulose ?? New: antiemetics ASSESSMENT / PLAN 1. Can consider checking QTc with chronic cipro prophylaxis. 2. Home gabapentin dose per medication history if 600/600/900mg TID. Consider updating dosing inpatient. Patient communicated that she does not use ondansetron or promethazine since they are not effective for her N/V. Nicole Dalal PharmJules, R.Ph. documented in this encounter H&P Notes Virginie Batista M.D. - 07/26/2021 11:07 AM CDT [facility] Medicine 1 ([facility]) Admission Note SUBJECTIVE CHIEF COMPLAINT Nausea and vomiting HISTORY OF PRESENT ILLNESS Ms. Catia Carias is a 31 y.o. female who presents with one week of nausea and vomiting. Her medical comorbidities are significant for alcohol-associated cirrhosis, current cigarette smoking, patent foramen ovale, chronic pancreatitis, GERD, generalized anxiety disorder, depression, migraines and an eating disorder. She says she was in her normal state of health until about 1 week ago when she started having nauseaand vomiting several times per day. She did not know what caused this to come on, but she otherwise felt generally well. The nausea and vomiting caused her to have a decreased appetite and she was having difficulty tolerating her many oral medications. The vomiting has not had any blood in it. She hasnot had any diarrhea or ever had blood in her stools. Over the past week, she has also felt a new abdominal discomfort, which she says does not feel like ascites to her. It is a gassy feeling that is not painful. She thinks her abdomen may be slightly more distended than usual, but she thinks this is because she has not been able to tolerate taking herdiuretics (furosemide and spironolactone). She has felt slightly more sleepy and inattentive over the past few days. For example, she mixed up which day of the week it was, but she says this is normal for her because she is not currently working. She has been continuing to take her lactulose and rifaximin as prescribed. Over the last few days, she says her chronic bilateral leg pain has been quite severe and worse thanusual. She says that she has neuropathy that makes her thighs feel numb and her calves feel painful.She says the neuropathy has been present ever since she woke up from her medically induced coma whenserenity was hospitalized in March 2021. She has also been recently enrolled in a medical marijuana program for this pain. She has been told in the past that the neuropathy is related to her liver disease. She takes oxycodone occasionally at home for the pain. She presented to the ED last night, 07/25/21, with nausea, vomiting, and diffuse abdominal pain. The patient says that there was a misunderstanding in that her severe pain was not from her abdominal pain but from her legs. On presentation, she was afebrile and vitally stable with HR 90 and BP 107/68. Her labwork was significant for a low hemoglobin of 7.4 g/dl, near her baseline. She also had an elevated bilirubin of 8.9, elevated from prior but also near her previous total bilirubin measurements. Bedside ultrasound showed a small amount of ascitic fluid. Paracentesis was attempted but she had a fear of needles and aborted the procedure. She received morphine and ceftriaxone. No hospital beds were admitted locally and she was transferred to [place]. Of note, on 07/06/21, she presented to her ED with fever of 100.3F. She was recommended to have a diagnostic paracentesis at that time, but she declined. As it relates to her liver disease, Ms. Carias was first told that she had cirrhosis in January 2021. The cause of her cirrhosis was thought to be due to heavy drinking but she also had an episode of unintentional Tylenol overdose after a fractured elbow a few years ago. She required paracentesis in 2020 and was hospitalized in March 2021 for altered mental status and hypoxia, ultimately requiring intubation. She underwent a paracentesis which did not show SBP but did cause significant bleeding secondary to her coagulopathy and she required multiple units of PRBC and FFP. During that hospitalization she was started on furosemide and spironolactone. GI recommended SBP prophylaxis indefinitely. During this hospitalizatoin she also had an epileptic episode and an altered mental status concerning for denise. She does have a known grade 3/6 systolic heart murmur best heard over the upper sternal border. TTE with bubble study showed a [id number] shunt with a severely enlarged left atrium. Cardiology was consulted and recommended follow up with a patient safety sitter in the outpatient setting. Ms. Carias tells me she has not needed another paracentesis since her hospitalization in March 2021. She has been compliant with all of her medications and has been adhering to a low sodium diet. Sheis currently going through the process of being considered for liver transplant. She has been struggling with restless leg syndrome and insomnia. She was recently prescribed hydroxyzine 25 mg for insomnia by her primary doctor. She hopes that she can have a sleep study performed inthe future. Medical comorbidities ?? Alcohol-associated cirrhosis. She was diagnosed with cirrhosis in January 2021. ?? Thrombocytopenia ?? 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 Patent foramen ovale ?? Alcohol use disorder in remission since July 2020 ?? GERD ?? Generalized anxiety disorder ?? Depression ?? Eating disorder ?? Migraines ?? Unintentional overdose of acetaminophen ?? Elbow surgery ?? Tendon repair ?? Insomnia Family history She reports no known family history of liver disease. Social history She lives with her boyfriend in an apartment in [place], [place]. She is not currently working but usedto work at the [employer] in [place]. Her last drink of alcohol was in July 2020. She says that she drank most heavily from age [age]. She said she wishes that she knew the damage she was doingto her body with alcohol. If she knew what she was doing, she never would have drank. She smokes 1/4pack of cigarettes per day. She uses medical marijuana for chronic pain. She uses the marijuana in various forms, including lozenges, inhaled forms, and more rarely, smoked forms. I have reviewed and updated the following: [...] folic acid 1 mg tablet, Take 1 tablet (1 mg total) by mouth daily. ??? furosemide (LASIX) 20 mg tablet, Take 1 tablet (20 mg total) by mouth daily. ??? gabapentin (NEURONTIN) 300 mg capsule, Take 300 mg by mouth 3 (three) times a day. ??? lactulose (CHRONULAC) 10 gram/15 mL solution, Take 45 mL by mouth 3 (three) times a day. ??? magnesium oxide (MAG-OX) 400 mg (241.3 mg magnesium) tablet, Take 1 tablet (400 mg total) by mouth 2 (two) times a day before breakfast and dinner. ??? ondansetron ODT (ZOFRAN-ODT) 8 mg disintegrating tablet, Take 1 tablet by mouth 3 (three) times a day as needed. ??? oxyCODONE (ROXICODONE) 5 mg immediate release tablet, Take 2.5-5 mg by mouth 2 (two) times a dayas needed for pain. ??? pantoprazole (PROTONIX) 40 mg EC tablet, Take 1 tablet (40 mg total) by mouth every morning before breakfast. ??? promethazine (PHENERGAN) 25 mg tablet, Take 25 mg by mouth every 6 (six) hours as needed for nausea. ??? spironolactone (ALDACTONE) 50 mg tablet, Take 1 tablet (50 mg total) by mouth daily. ??? vitamin A 3,000 mcg (10,000 Unit) capsule, Take 1 capsule (3,000 mcg total) by mouth 3 (three) times a week for 50 doses. ??? Vitamin B-1, mononitrate, 100 mg tablet, Take 100 mg by mouth every morning. ??? Xifaxan 550 mg tablet, Take 1 tablet (550 mg total) by mouth 2 (two) times a day. REVIEW OF SYSTEMS Pertinent items are noted in HPI; all other review of systems was negative. OBJECTIVE VITAL SIGNS Temperature: [36.6 ??C-37.2 ??C] 36.8 ??C Heart Rate: [80-85] 85 Resp Rate: [15-20] 16 Blood Pressure: (96-123)/(52-76) 110/61 SpO2: [92 %-99 %] 99 % Height: [157.5 cm] 157.5 cm Weight: [55.8 kg-58.9 kg] 55.8 kg BSA (Calculated - sq m): [1.56 sq meters] 1.56 sq meters BMI (Calculated): [22.5 kg/m??] 22.5 kg/m?? Pulse Rate: [80-101] 85 PHYSICAL EXAM General: Alert, interactive. She appears chronically ill. She is lying in bed wearing a winter hat. She is very talkative and pleasant. Skin: She has jaundice. No rashes or lesions. Eyes: Pupils equal and round. Extraocular muscle movements are normal. Sclera icteric. ENT: Hearing grossly intact. Dentition intact. No oral or pharyngeal erythema or lesions noted. Lymph: No cervical or subclavicular adenopathy. Lungs: Clear to auscultation. No wheezes or crackles. Heart: Normal rate and regular rhythm. Easily audible systolic murmur, loudest at the left sternal border. No lower extremity edema. Abdomen: Soft, mildly distended, bowel sounds normoactive, nontender, no palpable masses or organomegaly. Neuro: Face symmetric. No dysarthria. Moves all 4 extremities against gravity. She reports decreasedsensation to touch on her thighs bilaterally. Mental: Mood and affect congruent. Alert and oriented. Attention intact. No evidence of disorganizedthinking. 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 She has insight into her history of alcohol use and health. DIAGNOSTICS I have reviewed the labs, ECG, diagnostics and echo from admission. Labs 07/26/21 ?? CBC: Hemoglobin 6.8, platelets 53, white blood cells 5.8 ?? INR: 3 ?? BMP: Sodium 139, potassium 3.3, creatinine 0.56, total calcium 8.2, glucose 160 ?? CRP: 4.6 07/25/21 ?? CBC: Hemoglobin 7.4, platelets 65, white blood cells 5.6 ?? BMP: Sodium 138, potassium low at 3.5, creatinine at baseline at 0.5 ?? Hepatic function labs: Total bilirubin elevated at 8.9, ALT 32, AST high at 83 ?? Lipase: 13 ?? Ammonia: 81 Imaging ?? ECG 07/26/2021: Normal sinus rhythm, nonspecific T-wave abnormality. QTC interval 473 ?? Transthoracic echo 03/19/2021: Positive for atrial level shunt. Patent foramen ovale. EF 68%. Severely enlarged left atrial size. No significant valvular disease. ASSESSMENT / PLAN Ms. Catia Carias is a very nice 31 y.o. female who presented to the ED in [place] yesterday with nausea and vomiting for about 1 week. Her medical comorbidities are significant for alcohol-associatedcirrhosis, patent foramen ovale with severe left atrial enlargement, chronic pancreatitis, and a history of depression and anxiety. She is afebrile and hemodynamically stable. The explanation for her week of nausea and vomiting withinability to tolerate her oral medications is not clear. She may have had a gastrointestinal viral infection causing nausea and decreasing her appetite, although she had no diarrhea. With her history of ascites, she is at risk for SBP. She takes SBP prophylaxis with daily ciprofloxacin and says that she has been compliant with this even despite not feeling well. She also recently started a medical marijuana program to cope with leg pain. Cannabis hyperemesis syndrome can occur after acute or chronicuse of marijuana. She has a history of chronic pancreatitis as well, which could contribute to some abdominal pain and nausea and vomiting. Her labwork shows that her bilirubin is higher than it was previously, but her ALT and AST are roughly at baseline. She is not complaining of abdominal pain and says that her pain is mostly coming fromneuropathy from her legs. She does not think her abdomen is more distended than usual and attributesany increase in swelling to missing her doses of Lasix from nausea. Her abdomen is nontender and I do not suspect that she has a biliary obstruction to explain the increased bilirubin since she has no pain and no new ALT or AST elevation either. Her lipase is normal at 13, so I think an acute pancreatitis is unlikely. Ms. Carias is feeling much better after receiving morphine, ceftriaxone, and a small bolus of fluids in the ED. She is afebrile and I do not have a known source of infection at this time, so we will hold off on more antibiotics. I am reassured that her CRP is normal at 4.6. I recommended that she needsa paracentesis to rule out SBP with her known ascites. She declined a paracentesis, even under moderate sedation, due to her fear of needles, but said that she needed time to consider it. She would like to defer paracentesis at this time due to fear of pain and poor experiences with paracentesis in the past. I explained my concern that she is at high risk of spontaneous bacterial peritonitis and thatthis condition could be life threatening. She would like us to obtain an abdominal ultrasound prior to attempting paracentesis to confirm that she does have ascites and that there will be an acceptablepocket of fluid to sample. She is also complaining of severe bilateral leg pain that has been going on for months and has worsened after her hospitalization in March 2021 when she was critically ill in the ICU. The differential for her leg pain could include neuropathy associated with past alcohol use and peripheral neuropathy has been observed in patient with cirrhosis. Her critical illness in March 2021 may have also triggered or exacerbated her neuropathy. The leg pain could also be due to electrolyte abnormalities (she is hypokalemic) and vitamin deficiencies. We will monitor and treat her leg pain symptomatically while she is here. Her repeat hemoglobin today is low at 6.8 g/dl, but stable from last night at 7.4. We will give her 1 unit PRBC. I do not detect any evidence on physical exam or history that she is bleeding. I think her anemia is multifactorial from cirrhosis, poor intake recently, bone marrow suppression from past alcohol use, and chronic disease. She denies any history of GI bleeding but did require multiple transfusions after a paracentesis in March. We will monitor her closely for signs of bleeding. Today's plan: - Abdominal ultrasound - Blood transfusion - 1 unit PRBC - Consider paracentesis with lorazepam for anxiety # Vomiting, resolved # Nausea, resolved - Her nausea and vomiting have now resolved and she is ordering lunch. - Etiology is unclear of her nausea and vomiting, but includes: GI virus, chronic pancreatitis, cannabis hyperemesis syndrome, SBP - Plan: ?? Zofran PRN ?? 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 She is undergoing the process preparing for liver transplant in the future. - She is at risk of SBP and GI has recommended that she continue SBP prophylaxis indefinitely. - She does not have any sign of hepatic encephalopathy today. - Plan: ?? Abdominal ultrasound today. If ascites present, paracentesis with lorazepam to help with severe anxiety surrounding the procedure. ?? Continue home lasix and spironolactone. ?? Continue home lactulose and rifaximin. ?? Continue SBP prophylaxis with ciprofloxacin tomorrow. # Macrocytic anemia - Hemoglobin is low today at 6.8. Baseline appears to be between 7-8 since March. - Macrocytosis may be due to liver disease, alcohol use history. - Plan: ?? Tranfuse 1 unit of PRBC and recheck hemoglobin 1 hour after. Consent obtained from the patient. ?? Check vitamin B12 and folate given macrocytosis # Thrombocytopenia - Platelets are low at 65. - Likely secondary to cirrhosis, splenomegaly, malnutrition, history of alcohol use. TSH was normal in March 2021. - Plan: ?? Discontinue DVT prophylaxis if platelets fall <50. # Insomnia # Possible restless leg syndrome - She says insomnia has been a lifelong problem for her and she has trialed multiple medications. - Her PCP has recently prescribed her hydroxyzine 25 mg at bedtime. - Plan: ?? Melatonin prn ?? Hydroxyzine 25 mg prn at bedtime # Hypokalemia - Plan: ?? Replete as needed # Bilateral leg pain - She attributes her leg pain to neuropathy. This is her main complaint at this time. - She describes restlessness at night, which could be due to restless leg syndrome. She has anemia and even though she has a macrocytosis, she may have iron deficiency anemia and her restless legs may benefit from blood transfusion today. - Plan: ?? Continue home gabapentin 300 mg TID ?? Tylenol prn 325 mg q6h (reduced for liver disease) ?? Continue home oxycodone 5 mg prn ?? Triple cream prn ?? Correct electrolyte abnormalities. # Malnutrition - Likely secondary to her liver disease. - Plan: ?? Continue multivitamin ?? Thiamine 100 mg every morning ?? Vitamin A capsule 3,000 mcg ?? Magnesium oxide 400 mg BID ?? Folic acid 1 mg daily # Systolic heart murmur # Patent foramen ovale # Severely enlarged left atrium - Echocardiogram 03/19/21 showed PFO and atrial level shunt. - During her hospitalization in March 2022, she was recommended to follow up with Cardiology as an outpatient. I do not see that she followed up with them at [place]. - Plan: ?? Recommend Cardiology outpatient follow up. Baseline Mobility: BMAT Level 4 (Able to stand and walk) Diet: low sodium diet Tubes/lines: PIV VTE prophylaxis: heparin Code status: Full Code Surrogate Decision Maker: Parents and boyfriend, nabil Robin Disposition: Home documented in this encounter Nursing Notes Celena Richardson R.NSuma - 07/27/2021 2:54 PM CDT Problem: PAIN - ADULT Goal: PT VERBALIZES/DEMONSTRATES ADEQUATE COMFORT LEVEL OR BASELINE Outcome: Adequate for Discharge Problem: KNOWLEDGE DEFICIT Goal: Patient/family/caregiver demonstrates understanding of disease process, treatment plan, medications, and discharge instructions Outcome: Adequate for Discharge Problem: INFECTION - ADULT Goal: Absence of infection during hospitalization Outcome: Adequate for Discharge Problem: SKIN/TISSUE INTEGRITY Goal: Skin/Tissue integrity maintained or improved Outcome: Adequate for Discharge Goal: Oral and Nasal mucous membranes remain intact Outcome: Adequate for Discharge Problem: SAFETY ADULT Goal: Maintain a safe environment Outcome: Adequate for Discharge Problem: DISCHARGE PLANNING Goal: Patient discharge needs identified Outcome: Adequate for Discharge Problem: SAFETY ADULT - RISK FOR FALL AND OR FALL INJURY Goal: Patient remains free from fall/fall injury Outcome: Adequate for Discharge Shift Goals: Clinical Goals for the Shift: Pain management Identify possible barriers to meeting goals/advancing plan of care: End of Shift Summary: Patient discharged to home self care. VSS upon discharge. Transportation provided by boyfriend. Teaching provided. After visit summary reviewed and explained to patient including upcoming appointments and medication changes. All questions answered to patient's satisfaction. IV removed. Ana Paula Noriega R.N. - 07/27/2021 4:37 AM CDT Problem: PAIN - ADULT Goal: PT VERBALIZES/DEMONSTRATES ADEQUATE COMFORT LEVEL OR BASELINE Outcome: Progressing Note: Pt rated pain at a 7/10 in bilat legs throughout the shift. Pt received oxy x 1 and PRN pain cream x 1. Pt reports this was somewhat effective. Problem: SAFETY ADULT Goal: Maintain a safe environment Outcome: Progressing Note: Pt using light appropriately. Pt is up independently and calls if in need of assistance. Gait is steady. Shift Goals: Clinical Goals for the Shift: pain management Identify possible barriers to meeting goals/advancing plan of care: NA End of Shift Summary: VSS. Pt pleasant and cooperative with cares. Pt is up independently and calls if needs assistance. Reports chronic pain in BLE. Pt received oxy x 1 and pain relieving cream x 1. Humera Murray R.N. - 07/26/2021 4:23 PM CDT Problem: PAIN - ADULT Goal: PT VERBALIZES/DEMONSTRATES ADEQUATE COMFORT LEVEL OR BASELINE Outcome: Progressing Note: Pt had 8/10 bilateral leg pain; prn oxy and amitriptyline administered with relief along with heating pad. Problem: SAFETY ADULT Goal: Maintain a safe environment Outcome: Progressing Note: Pt remained free from falls during shift. Pt call light appropriate and independent in room. Shift Goals: Clinical Goals for the Shift: Pain management Identify possible barriers to meeting goals/advancing plan of care: Abdominal pain End of Shift Summary: Soft pressors otherwise vitally stable on room air. Hgb 6.8; 1 unit RBC infused this evening. Pt nauseous during blood transfusion; PRN Zofran given- no vomiting this shift. Pt had abdominal ultrasound this afternoon. documented in this encounter Miscellaneous Notes Result Encounter Note - Conor Friend M.B.B.S., M.S. - 07/30/2021 3:33 PM CDT Called patient about low haptoglobin level, advised while other tests looking at hemolytic anemia were negative, this test did suggest some hemolysis. I advised that she see her PCP as soon as possibleto have a repeat CBC in order to check her hemoglobin had not dropped since hospitalization. She understood this and agreed with the plan Documentation Clarification - Conor Friend M.B.B.S., M.S. - 07/27/2021 3:39 PM CDT PROVIDER RESPONSE TEXT: To clarify, the appropriate diagnosis supported by the clinical indicators: Nausea and Vomiting likely due to Liver Disease with Alcoholic Cirrhosis <LCI> QUERY TEXT: DOCUMENTATION CLARIFICATION REQUEST Please clarify/specify the appropriate diagnosis supported in the clinical indicators below. [[Nausea and Vomiting likely due to Liver Disease with Alcoholic Cirrhosis]] Other (explain) Clinically unable to determine (explain) Clinical Indicators/Risk Factors/Treatment: H & P: (Batista) 07/26/21: 31 y.o. female who presents with one week of nausea and vomiting. Her medical comorbidities are significant for alcohol associated cirrhosis. - The nausea and vomiting caused her to have a decreased appetite and she was having difficulty tolerating her many oral medications.. She has felt slightly more sleepy and inattentive over the past few days She has been continuing to take her lactulose and rifaximin as prescribed Outside ED 07/25 She also had an elevated bilirubin of 8.9, elevated from prior but also near her previous total bilirubin measurements. Bedside ultrasound showed a small amount of ascitic fluid . She is currently going through the process of being considered for liver transplant. - As it relates to her liver disease, Ms. Carias was first told that she had cirrhosis in January 2021. The cause of her cirrhosis was thought to be due to heavy drinking but she also had an episode of unintentional Tylenol overdose after a fractured elbow a few years ago. Medical comorbidities Alcohol-associated cirrhosis. She was diagnosed with cirrhosis in January 2021. 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 Macrocytosis may be due to liver disease, alcohol use history. # Thrombocytopenia - Platelets are low at 65. - Likely secondary to cirrhosis, splenomegaly, malnutrition, history of alcohol use. PE: Skin : She has jaundice. She was recently prescribed hydroxyzine 25 mg for insomnia by her primary doctor. Lab: PROTHROMBIN TIME (PT), P: 07-26-2021 10:58 PROTHROMBIN TIME, P: 33.7 sec INTERNATIONAL NORMALIZED RATIO:3.0 Please contact me if you have questions. Thank you, Diana Hickey [facility] Clinical Documentation Shot Hole Driller Query created by: ZACH Trevizo 07/28/2021 11:55 AM CDT </LCI> Hospital Course - Conor Friend M.B.B.S., M.S. - 07/27/2021 5:58 AM CDT Ms. Catia Carias is a 31 y.o. female who presents with one week of nausea and vomiting. Her medical comorbidities are significant for alcohol-associated cirrhosis, current cigarette smoking, patent foramen ovale, chronic pancreatitis, GERD, generalized anxiety disorder, depression, migraines and an eating disorder. She says she was in her normal state of health until about 1 week ago when she started having nauseaand vomiting several times per day. She did not know what caused this to come on, but she otherwise felt generally well. The nausea and vomiting caused her to have a decreased appetite and she was having difficulty tolerating her many oral medications. The vomiting has not had any blood in it. She hasnot had any diarrhea or ever had blood in her stools. She has also felt a new abdominal discomfort over the past week which she says does not feel like ascites, and has been slightly more sleepy than usual. She presented to [facility] emergency department on 07/25 with nausea, vomiting, and abdominal pain (although patient mentions that her severe pain was actually from her legs). Labs were notable for hemoglobin of 7.4 (near baseline), and a bilirubin of 8.9. Bedside ultrasound showed small amount of a scitic fluid, however due to patient discomfort the procedure was aborted and she received morphine and ceftriaxone. Due to a lack of available local hospital beds, she was transferred to [facility] for further investigation and management. On presentation at [facility], she was in stable condition with vital signs within normallimits. Examination was notable for scleral icterus and slight abdominal distension. She mentions that her vomiting and nausea have self resolved and she feels like she is back to normal. She again declined paracentesis unless this was performed under general anesthetic which was unfortunately unavailable over the weekend. With this in mind, given her symptom resolution and low likelihood of a paracentesis being diagnostic 3 days after antibiotics, she was discharged from our care with instructions to return urgently to hospital should she develop any further nausea, abdominal pain, somnolence, confusion, or abdominal tenderness for further assessment. Of note, Ms. Gallegos hemoglobin was low during admission between 6.8 and 8.5, which is close to her baseline. She received 1 unit of pRBC during her admission. Laboratory workup for hemolytic causes of anemia was unrevealing. She was started on a folic acid supplement given her previous deficiency, and instructed to see her PCP for repeat check of her hemoglobin. Folic acid and B12 levels were drawn but pending at the time of hospital discharge documented in this encounter Plan of Treatment Upcoming Encounters Date Type Specialty Care Team Description 01/07/2022 Office Visit [facility] Ranjit Red P.A.-C. [address] [place], [place] [address]luzma BAYADI WRIGHT [phone] (Gwendolyn rahman) 01/12/2022 Appointment Laboratory Medicine Mtathew Jerome M.B.B.S., M.DSuma [address] [place] [phone] (Gwendolyn rahman) 01/12/2022 Appointment Laboratory Medicine Adeline Frazier M.D., Ph.D. [address] [place] [address] [phone] (Wo rk) 01/13/2022 Telemedicine Transplant Joel Tan L.I.C.S.W., M.S. W. [address] [place] [address] [phone] (Wo rk) 01/13/2022 Telemedicine Transplant Matthew Jerome M.B.B.S., Lilian [address] [place] [phone] (Wo rk) 01/13/2022 Telemedicine Transplant Adeline Frazier M.D., Ph.D. [address] [place] [address] [phone] (Wo rk) 01/28/2022 Office Visit Gastroenterology and Matthew Jerome, Hepatology M.B.B.SSuma, Lilian [address] [place] [phone] (Wo rk) Pending Results Name Type Priority Associated Diagnoses Date/Ti sd Prepare Red Blood Blood Bank Routine 07/26/2021 10:57 AM CDT Cells, 1 Units Scheduled Procedures Name Priority Associated Diagnoses Date/Time ESOPHAGOGASTRODUODENOSCOPY Cirrhosis Alc oholic (HCC) Hypertension Portal (HCC) ESOPHAGOGASTRODUODENOSCOPY Cirrhosis Alc oholic (HCC) Ascites Anemia Macrocytic Thrombocytopenia (HC C) Deficiency Coagulation Acquired (HCC) documented as of this encounter Procedures Procedure Name Priority Date/Time Associated Comments Diagnosis DIRECT ANTIGLOBULIN Routine 07/27/2021 Results for TEST (POLYSPECIFIC) 10:15 AM CDT this pro cedure are in the results section. LACTATE DEHYDROGENASE Routine 07/27/2021 Result s for (LD), S 10:15 AM CDT this procedure are in the results section. HEMATOPATHOLOGY REVIEW Routine 07/27/2021 9:39 Re sults for AM CDT this procedure are in the results section. SPSMA RESULT Routine 07/27/2021 9:39 Results for AM CDT this procedure are in the results section. RETICULOCYTES, B Routine 07/27/2021 9:39 Results for AM CDT this procedure are in the results section. CBC WITH DIFFERENTIAL, Routine 07/27/2021 5:10 Re sults for B AM CDT this procedure are in the results section. HEPATIC FUNCTION Routine 07/27/2021 5:09 Results for PANEL, S AM CDT this procedure are in the results section. PROTHROMBIN TIME (PT), Routine 07/27/2021 5:09 Re sults for P AM CDT this procedure are in the results section. BASIC METABOLIC PANEL, Routine 07/27/2021 5:09 Re sults for S/P AM CDT this procedure are in the results section. HAPTOGLOBIN, S Routine 07/27/2021 5:04 Results fo r AM CDT this procedure are in the results section. HEMOGLOBIN, B Routine 07/26/2021 9:57 Results for PM CDT this procedure are in the results section. TRANSFUSE RED BLOOD Routine 07/26/2021 5:07 CELLS PM CDT US ABDOMEN COMPLETE RAD - Routine 07/26/2021 3:19 Resu lts for (most inpatients PM CDT this proced ure and all are in the outpatients) results section. HC OSMOLALITY ASSAY Routine 07/26/2021 Results for URINE 12:11 PM CDT this procedure are in the results section. DIPSTICK, U Routine 07/26/2021 Results for 12:11 PM CDT this procedure are in the results section. PH, RANDOM, U Routine 07/26/2021 Results for 12:11 PM CDT this procedure are in the results section. MICROSCOPIC MANUAL Routine 07/26/2021 Results f or 12:11 PM CDT this procedure are in the results section. URINALYSIS WITH Routine 07/26/2021 Results for MICROSCOPIC 12:11 PM CDT this procedure are in the results section. PROTHROMBIN TIME (PT), Timed 07/26/2021 Resul ts for P 10:58 AM CDT this procedure are in the results section. CBC WITH DIFFERENTIAL, Timed 07/26/2021 Resul ts for B 10:58 AM CDT this procedure are in the results section. C-REACTIVE PROTEIN Timed 07/26/2021 Results f or (CRP), S/P 10:58 AM CDT this procedure are in the results section. BASIC METABOLIC PANEL, Timed 07/26/2021 Resul ts for S/P 10:58 AM CDT this procedure are in the results section. HEPATIC FUNCTION Routine 07/26/2021 Results for PANEL, S 10:57 AM CDT this procedure are in the results section. PREPARE RED BLOOD Routine 07/26/2021 CELLS 10:57 AM CDT TYPE AND SCREEN Routine 07/26/2021 Results for 10:57 AM CDT this procedure are in the results section. MAGNESIUM, S Routine 07/26/2021 Results for 10:57 AM CDT this procedure are in the results section. ECG Routine 07/26/2021 9:10 Results for AM CDT this procedure are in the results section. documented in this encounter Results LD (Lactate Dehydrogenase) (07/27/2021 10:15 AM CDT) [facility] LD 218 122 - 222 07/27/2021 DTL U/L 11:27 AM CDT Specimen Anatomical Collection Method Collection Time Receive d Time (Source) Location / / Volume Laterality Blood (Blood, 07/27/2021 10:15 07/27/2021 Venous) AM CDT 11:03 AM CDT Conor Snatillan, M.S. LAB BLOOD NON ADD-ON Performing Organization Address City/State/ZIP Code Phon e Number [facility] - [address] [place], [place] [address] [facility] [place] [address] Laboratories-[facility] [address] Direct Antiglobulin Test (Poly) (07/27/2021 10:15 AM CDT) Patholo gist Method Time Signature Direct Negative Negative 07/27/2021 STRM Antiglobulin 10:50 AM CDT Test, Polyspecific Specimen Anatomical Collection Method Collection Time Receive d Time (Source) Location / / Volume Laterality Blood (Blood, 07/27/2021 10:15 07/27/2021 Venous) AM CDT 10:27 AM CDT Conor Santana., M.S. LAB BLOOD BANK TEST O RDERABLES Performing Organization Address [facility] Phon e Number [facility] - [address] [phone] [facility] [place] [address] Laboratories-[address] Peripheral Smear Interpretation (07/27/2021 9:39 AM CDT) Component Value Ref Test Analysis Performed Pathologis t Range Method Time At [facility] 07/28/2021 [facility] 10:50 AM CDT Report Marcela Rogers M.D. 07/28/2021 [facility] electronically 10:50 AM signed by CDT I verify that I have examined all relevant slides/materials for the specimen(s) and rendered or confirmed the diagnosis. Interpretation Marked acanthocytosis present, compatible with clini ada 07/28/2021 [facility] history of alcohol-associated cirrhosis. 10:50 AM CDT Specimen Anatomical Collection Method Collection Time Receive d Time (Source) Location / / Volume Laterality Blood 07/27/2021 9:39 AM 9:39 CDT AM CDT Conor Santillan, M.S. LAB PATHOLOGY/CYTOLOG Y ORDERABLES Performing Organization Address City/[facility] Phon e Number [facility] - [phone] [place] [address] (ABNORMAL) Reticulocytes (07/27/2021 9:39 AM CDT) [facility] Method Time [facility] Reticulocytes, B 7.52 (H) 0.60 - 07/27/2021 [facility] 2.71 % 11:12 AM CDT Absolute 155.7 (H) 30.4 - 07/27/2021 [facility] Reticulocyte 110.9 11:12 AM CDT x10(9)/L Specimen Anatomical Collection Method Collection Time Receive d Time (Source) Location / / Volume Laterality Blood (Blood, 07/27/2021 9:39 AM 07/28/19 9:39 Venous) CDT AM CDT Conor Santillan, M.S. LAB BLOOD ADD-ON Performing Organization Address City/[facility] Phon e Number [facility] - [address] (ABNORMAL) Morphology Evaluation (Special Smear) (07/27/2021 9:39 AM CDT) Analysis Performed At Patho logist Time Signature Neutrophilic Segs 78 (H) 50 - 75 % 07/28/2021 DTL and Bands 11:07 AM CDT Lymphocytes 16 (L) 18 - 42 % 07/28/2021 [facility] 11:07 AM CDT Monocytes 6 2 - 11 % 07/28/2021 [facility] 11:07 AM CDT Specimen Anatomical Collection Method Collection Time Receive d Time (Source) Location / / Volume Laterality Blood (Blood, 07/27/2021 9:39 AM 07/28/19 9:39 Venous) CDT AM CDT Conor Santana., M.S. LAB BLOOD ADD-ON Performing Organization Address [facility] Phon e Number [facility] - [address] [phone] [address] [facility] [place] [address] (ABNORMAL) CBC with Differential, Blood (07/27/2021 5:10 AM CDT) Patholo gist Method Time Signature Hemoglobin 7.5 (L) 11.6 - 07/27/2021 DTL 15.0 g/dL 5:32 AM CDT Hematocrit 22.3 (L) 35.5 - 07/27/2021 DTL 44.9 % 5:32 AM CDT Erythrocytes 2.14 (L) 3.92 - 07/27/2021 DTL 5.13 5:32 AM CDT x10(12)/L MCV 104.2 (H) 78.2 - 07/27/2021 DTL 97.9 fL 5:32 AM CDT RBC Distrib Width 16.9 (H) 12.2 - 07/27/2021 DTL 16.1 % 5:32 AM CDT Platelet Count 58 (L) 157 - 371 07/27/2021 DTL x10(9)/L 5:32 AM CDT Leukocytes 6.4 3.4 - 9.6 07/27/2021 DTL x10(9)/L 5:32 AM CDT Neutrophils 4.49 1.56 - 07/27/2021 DTL 6.45 5:32 AM CDT x10(9)/L Lymphocytes 1.20 0.95 - 07/27/2021 DTL 3.07 5:32 AM CDT x10(9)/L Monocytes 0.54 0.26 - 07/27/2021 DTL 0.81 5:32 AM CDT x10(9)/L Eosinophils 0.08 0.03 - 07/27/2021 DTL 0.48 5:32 AM CDT x10(9)/L Basophils 0.04 0.01 - 07/27/2021 DTL 0.08 5:32 AM CDT x10(9)/L Specimen Anatomical Collection Method Collection Time Receive d Time (Source) Location / / Volume Laterality Blood (Blood, 07/27/2021 5:10 AM 07/28/19 22 5:23 Venous) CDT AM CDT Virginie Batista M.D. LAB BLOOD ADD-ON Performing Organization Address City/State/ZIP Code Phon e Number [facility] - [address] [place] [phone] [facility] [place] [address] Laboratories-[address] (ABNORMAL) Prothrombin Time (PT) (07/27/2021 5:09 AM CDT) [facility] gist Method Time Signature Prothrombin 31.4 (H) 9.4 - 12.5 07/27/2021 DTL Time, P sec 5:45 AM CDT INR 2.8 0.9 - 1.1 07/27/2021 DTL 5:45 AM CDT Comment: ----ADDITIONAL INFORMATION---- Standard intensity warfarin therapeutic range: 2.0 to 3.0 ?? High intensity warfarin therapeutic rang e: 2.5 to 3.5 Specimen Anatomical Collection Method Collection Time Receive d Time (Source) Location / / Volume Laterality Blood (Blood, 07/27/2021 5:09 AM 07/28/19 22 5:23 Venous) CDT AM CDT Virginie Batista M.D. LAB BLOOD ADD-ON Performing Organization Address City/[facility] Phon e Number [facility] - [address] [place], [place] [phone] [place] [address] (ABNORMAL) Hepatic Function Panel (07/27/2021 5:09 AM CDT) Patholo gist Method Time Signature Bilirubin, Total, S 11.3 (H) <=1.2 07/27/2021 DTL mg/dL 5:52 AM CDT Bilirubin, Direct, S 5.3 (H) 0.0 - 0.3 07/27/2021 DTL mg/dL 5:52 AM CDT Aspartate 62 (H) 8 - 43 07/27/2021 DTL Aminotransferase U/L 5:52 AM CDT (AST), S Alanine 26 7 - 45 07/27/2021 DTL Aminotransferase U/L 5:52 AM CDT (ALT), S Alkaline 154 (H) 35 - 104 07/27/2021 DTL Phosphatase, S U/L 5:52 AM CDT Albumin, S 3.1 (L) 3.5 - 5.0 07/27/2021 DTL g/dL 5:52 AM CDT Protein, Total, S 5.3 (L) 6.3 - 7.9 07/27/2021 DTL g/dL 5:52 AM CDT Specimen Anatomical Collection Method Collection Time Receive d Time (Source) Location / / Volume Laterality Blood (Blood, 07/27/2021 5:09 AM 07/28/19 22 5:36 Venous) CDT AM CDT Virginie Batista M.D. LAB BLOOD ADD-ON Performing Organization Address City/State/[facility] Phon e Number [facility] - [address] [place], [place] [id number] [place] [address] (ABNORMAL) Basic Metabolic Panel (07/27/2021 5:09 AM CDT) Analysis Performed At Patho logist Time Signature Potassium, S 3.6 3.6 - 5.2 07/27/2021 DTL mmol/L 5:52 AM CDT Sodium, S 137 135 - 145 07/27/2021 DTL mmol/L 5:52 AM CDT Chloride, S 105 98 - 107 07/27/2021 DTL mmol/L 5:52 AM CDT Bicarbonate, S 21 (L) 22 - 29 07/27/2021 DTL mmol/L 5:52 AM CDT Anion Gap 11 7 - 15 07/27/2021 DTL 5:52 AM CDT BUN (Blood Urea 9 6 - 21 07/27/2021 DTL Nitrogen), S mg/dL 5:52 AM CDT Creatinine 0.55 (L) 0.59 - 07/27/2021 DTL 1.04 mg/dL 5:52 AM CDT eGFR-Non >90 >=60 07/27/2021 DTL Black/ mL/min/BSA 5:52 AM CDT Latvian Comment: ----ADDITIONAL INFORMATION---- Estimated GFR calculated using the 2009 CKD_EPI creatinine equation. eGFR-Black/ >90 >=60 mL/min/BSA 2021 5:52 AM CDT DTL Comment: ----ADDITIONAL INFORMATION---- Estimated GFR calculated using the 2009 CKD_EPI creatinine equation. Calcium, Total, S 8.3 (L) 8.6 - 10.0 mg/dL 07/27/2021 5:52 AM CDT DTL Glucose, S 116 70 - 140 mg/dL 07/27/2021 5:52 AM CDT D TL Specimen Anatomical Collection Method Collection Time Receive d Time (Source) Location / / Volume Laterality Blood (Blood, 07/27/2021 5:09 AM 07/28/19 5:36 Venous) CDT AM CDT Virginie Batista M.D. LAB BLOOD ADD-ON Performing Organization Address City/State/ZIP Code Phon e Number [facility] - [address] [place], [place] [address] [facility] [place] [address] Laboratories-[facility] [address] (ABNORMAL) Haptoglobin (07/27/2021 5:04 AM CDT) P athologist Signature Haptoglobin, S <14 (L) 30 - 200 07/29/2021 SDSC mg/dL 10:32 AM CDT Specimen Anatomical Collection Method Collection Time Receive d Time (Source) Location / / Volume Laterality Blood (Blood, 07/27/2021 5:04 AM 07/30/19 9:06 Venous) CDT AM CDT Kwabena Zelaya M.D. LAB BLOOD ADD-ON Performing Organization Address City/[facility] Phon e Number [facility] [address] [place], [place] [address] [facility] [place] [address] Laboratory Medicine and Pathology [address] [place] (ABNORMAL) Hemoglobin (07/26/2021 9:57 PM CDT) athologist Signature Hemoglobin 8.2 (L) 11.6 - 15.0 07/26/2021 DTL g/dL 10:19 PM CDT Specimen Anatomical Collection Method Collection Time Receive d Time (Source) Location / / Volume Laterality Blood (Blood, 07/26/2021 9:57 PM 07/27/19 Venous) CDT 10:14 PM CDT Ana Montanez M.D. LAB BLOOD ADD-ON Performing Organization Address City/[facility] Code Phon e Number [facility] - [address] [place] [phone] [facility] [place] [address] Laboratories-[facility] 200 [facility] Transfuse Red Blood Cells : (07/26/2021 7:19 PM CDT) Conor Santillan, M.S. BLOOD TRANSFUSION ORD ERABLES Transfuse Red Blood Cells : , 1 Units (07/26/2021 7:19 PM CDT) Conor Santillan, M.S. BLOOD TRANSFUSION ORD ERABLES US Abdomen Complete (07/26/2021 3:19 PM CDT) Anatomical Region Laterality Modality Abdomen, Ultrasound RST LOS, Ultrasound ARZ LOS, Ultrasound FLA N/A Ultrasound LOS Specimen (Source) Anatomical Collection Method Collection Time Re ceived Time Location / / Volume Laterality 07/26/2021 3:28 PM CDT Impressions 07/26/2021 6:21 PM CDT 1. Hepatic steatosis and cirrhosis. 2. Cholelithiasis. 3. Mild splenomegaly. Narrative 07/26/2021 6:21 PM CDT EXAM: US ABDOMEN COMPLETE COMPARISON: CT abdomen pelvis 03/21/2021 , outside ultrasound 02/13/2021 FINDINGS: Liver: Increased echotexture compatible with hepatic steatosis. Coarse echotexture consistent with cirrhosis. No definite hepatic mass. Gallbladder: Cholelithiasis. No wall thi ckening or pericholecystic fluid. Negative Lovell's sign. Intrahepatic ducts: Not dilated. Common duct: Not dilated. Pancreas: Normal where seen. Right kidney: Length: 11.9 cm. Normal echogenicity. No hydronephrosis. Left kidney: Length: 11.4 cm. Normal echogenicity. No hydronephrosis. Spleen: Mildly enlarged. ??Spleen length : 15.3 cm Aorta: Normal caliber. IVC: Normal where seen. Ascites: ??Mild. Procedure Note Ervin Etienne M.B., Ch.B. - 07/26/2021 EXAM: US ABDOMEN COMPLETE COMPARISON: CT abdomen pelvis 03/21/2021 , outside ultrasound 02/13/2021 FINDINGS: Liver: Increased echotexture compatible with hepatic steatosis. Coarse echotexture consistent with cirrhosis. No definite hepatic mass. Gallbladder: Cholelithiasis. No wall thi ckening or pericholecystic fluid. Negative Lovell's sign. Intrahepatic ducts: Not dilated. Common duct: Not dilated. Pancreas: Normal where seen. Right kidney: Length: 11.9 cm. Normal echogenicity. No hydronephrosis. Left kidney: Length: 11.4 cm. Normal echogenicity. No hydronephrosis. Spleen: Mildly enlarged. Spleen length: 15.3 cm Aorta: Normal caliber. IVC: Normal where seen. Ascites: Mild. IMPRESSION: 1. Hepatic steatosis and cirrhosis. 2. Cholelithiasis. 3. Mild splenomegaly. Virginie PERALES US PROCEDURES Dipstick, Urine (07/26/2021 12:11 PM CDT) [facility] Method Time Signature Hemoglobin, Negative Negative 07/26/2021 DTL QL, U 1:29 PM CDT Leukocyte Negative Negative 07/26/2021 DTL Esterase, U 1:29 PM CDT Nitrite, U Negative Negative 07/26/2021 DTL 1:29 PM CDT Ketone, U Negative Negative 07/26/2021 DTL mg/dL 1:29 PM CDT Glucose, U Negative Negative 07/26/2021 DTL mg/dL 1:29 PM CDT Specimen Anatomical Collection Method Collection Time Receive d Time (Source) Location / / Volume Laterality Urine 07/26/2021 12:11 07/26/2021 PM CDT 12:58 PM CDT Virginie Batista M.D. LAB URINE ORDERABLES Performing Organization Address City/State/ZIP Code Phon e Number [facility] - [address] Osmolality, Urine (07/26/2021 12:11 PM CDT) P athologist Signature Osmolality, U 613 150 - 1150 07/26/2021 DTL mOsm/kg 2:34 PM CDT Specimen Anatomical Collection Method Collection Time Receive d Time (Source) Location / / Volume Laterality Urine 07/26/2021 12:11 07/26/2021 PM CDT 12:58 PM CDT Virginie Batista M.D. LAB URINE ORDERABLES Performing Organization Address City/[facility]/ZIP Code Phon e Number [facility] - 200 [place], [place] [address] [place] [address] [place], [place] [phone] [place] [address] [facility] pH, Random, Urine (07/26/2021 12:11 PM CDT) P athologist Signature pH, Random, U 6.7 4.5 - 8.0 07/26/2021 DTL 2:34 PM CDT Specimen Anatomical Collection Method Collection Time Receive d Time (Source) Location / / Volume Laterality Urine 07/26/2021 12:11 07/26/2021 PM CDT 12:58 PM CDT Virginie Batista M.D. LAB URINE ORDERABLES Performing Organization Address City/[facility]/ZIP Code Phon e Number [facility] - [address] [place] [address] [place] [address] [place], [place] [phone] [place] [address] Street SW (ABNORMAL) Microscopic Manual (07/26/2021 12:11 PM CDT) P athologist Signature Microscopy Abnormal 07/26/2021 DTL 2:50 PM CDT RBC <3 <3 /hpf 07/26/2021 DTL 2:50 PM CDT WBC 1-3 /hpf 07/26/2021 DTL 2:50 PM CDT Comment: ----REFERENCE VALUE---- 1-3 ??(Males) 1-10 (Females) Renal Epithelial Cells 1-3 (A) /hpf 07/26/2021 2:50 P M CDT DTL Specimen Anatomical Collection Method Collection Time Receive d Time (Source) Location / / Volume Laterality Urine 07/26/2021 12:11 07/26/2021 PM CDT 12:58 PM CDT Virginie Batista M.D. LAB URINE ORDERABLES Performing Organization Address City/State/ZIP Code Phon e Number [facility] - [address] [place] [phone] [facility] [place] [address] Laboratories-[address] Urinalysis with Microscopic: Urine, Midstream (07/26/2021 12:11 PM CDT) Patholo gist Method Time Signature Source Urine, Urine, 07/26/2021 DTL Midstream 12:58 PM CDT Color, U Yellow 07/26/2021 DTL 12:58 PM CDT Clarity, U Clear 07/26/2021 DTL 12:58 PM CDT Protein, U 25 <26 mg/dL 07/26/2021 DTL 1:30 PM CDT Protein/Osmol 0.41 <0.42 07/26/2021 DTL ality ratio 2:34 PM CDT Predicted 24 296 mg/24 h 07/26/2021 DTL Hr Protein 2:34 PM CDT Predicted 73-1200 mg/24 h 07/26/2021 DTL Range 2:34 PM CDT Specimen Anatomical Collection Method Collection Time Receive d Time (Source) Location / / Volume Laterality Urine (Urine, 07/26/2021 12:11 07/26/2021 Midstream) PM CDT 12:58 PM CDT Virginie Batista M.D. LAB URINE ORDERABLES Performing Organization Address City/[facility]/ZIP Code Phon e Number [facility] - [phone] [place] [address] (ABNORMAL) Prothrombin Time (PT) (07/26/2021 10:58 AM CDT) Patholo gist Method Time Signature Prothrombin 33.7 (H) 9.4 - 12.5 07/26/2021 DTL Time, P sec 11:42 AM CDT INR 3.0 0.9 - 1.1 07/26/2021 DTL 11:42 AM CDT Comment: ----ADDITIONAL INFORMATION---- Standard intensity warfarin therapeutic range: 2.0 to 3.0 ?? High intensity warfarin therapeutic rang e: 2.5 to 3.5 Specimen Anatomical Collection Method Collection Time Receive d Time (Source) Location / / Volume Laterality Blood (Blood, 07/26/2021 10:58 07/26/2021 Venous) AM CDT 11:24 AM CDT Virginie Batista M.D. LAB BLOOD ADD-ON Performing Organization Address City/[facility]/ZIP Code Phon e Number [facility] - [address] CRP (C-Reactive Protein) (07/26/2021 10:58 AM CDT) P athologist Signature C-Reactive 4.6 <=8.0 mg/L 07/26/2021 DT Protein (CRP), 11:55 AM CDT S Specimen Anatomical Collection Method Collection Time Receive d Time (Source) Location / / Volume Laterality Blood (Blood, 07/26/2021 10:58 07/26/2021 Venous) AM CDT 11:38 AM CDT Virginie Batista M.D. LAB BLOOD ADD-ON Performing Organization Address City/[facility]/ZIP Code Phon e Number [facility] - [address] [place] [address] [place] [address] (ABNORMAL) Basic Metabolic Panel (07/26/2021 10:58 AM CDT) Analysis Performed At Patho logist Time Signature Potassium, S 3.3 (L) 3.6 - 5.2 07/26/2021 DTL mmol/L 11:55 AM CDT Sodium, S 139 135 - 145 07/26/2021 DTL mmol/L 11:55 AM CDT Chloride, S 107 98 - 107 07/26/2021 DTL mmol/L 11:55 AM CDT Bicarbonate, S 22 22 - 29 07/26/2021 DTL mmol/L 11:55 AM CDT Anion Gap 10 7 - 15 07/26/2021 DTL 11:55 AM CDT BUN (Blood Urea 8 6 - 21 07/26/2021 DTL Nitrogen), S mg/dL 11:55 AM CDT Creatinine 0.56 (L) 0.59 - 07/26/2021 DTL 1.04 mg/dL 11:55 AM CDT eGFR-Non >90 >=60 07/26/2021 DTL Black/ mL/min/BSA 11:55 AM CDT Latvian Comment: ----ADDITIONAL INFORMATION---- Estimated GFR calculated using the 2009 CKD_EPI creatinine equation. eGFR-Black/ >90 >=60 mL/min/BSA 2021 11:55 AM CDT DTL Comment: ----ADDITIONAL INFORMATION---- Estimated GFR calculated using the 2009 CKD_EPI creatinine equation. Calcium, Total, S 8.2 (L) 8.6 - 10.0 mg/dL 07/26/2021 11:5 5 AM CDT DTL Glucose, S 160 (H) 70 - 140 mg/dL 07/26/2021 11:55 AM CDT DTL Specimen Anatomical Collection Method Collection Time Receive d Time (Source) Location / / Volume Laterality Blood (Blood, 07/26/2021 10:58 07/26/2021 Venous) AM CDT 11:38 AM CDT Virginie Batista M.D. LAB BLOOD ADD-ON Performing Organization Address City/State/ZIP Code Phon e Number [facility] - [address] [place], [place] [address] [facility] [place] [address] Laboratories-[facility] [address] (ABNORMAL) CBC with Differential, Blood (07/26/2021 10:58 AM CDT) [facility] Method Time Signature Hemoglobin 6.8 (L) 11.6 - 07/26/2021 DTL 15.0 g/dL 12:05 PM CDT Hematocrit 19.7 (L) 35.5 - 07/26/2021 DTL 44.9 % 12:05 PM CDT Erythrocytes 1.85 (L) 3.92 - 07/26/2021 DTL 5.13 12:05 PM CDT x10(12)/L MCV 106.5 (H) 78.2 - 07/26/2021 DTL 97.9 fL 12:05 PM CDT RBC Distrib Width 14.3 12.2 - 07/26/2021 DTL 16.1 % 12:05 PM CDT Platelet Count 53 (L) 157 - 371 07/26/2021 DTL x10(9)/L 12:05 PM CDT Leukocytes 5.8 3.4 - 9.6 07/26/2021 DTL x10(9)/L 12:05 PM CDT Neutrophils 4.09 1.56 - 07/26/2021 DTL 6.45 12:05 PM CDT x10(9)/L Lymphocytes 1.16 0.95 - 07/26/2021 DTL 3.07 12:05 PM CDT x10(9)/L Monocytes 0.50 0.26 - 07/26/2021 DTL 0.81 12:05 PM CDT x10(9)/L Eosinophils 0.07 0.03 - 07/26/2021 DTL 0.48 12:05 PM CDT x10(9)/L Basophils <0.03 0.01 - 07/26/2021 DTL 0.08 12:05 PM CDT x10(9)/L Specimen Anatomical Collection Method Collection Time Receive d Time (Source) Location / / Volume Laterality Blood (Blood, 07/26/2021 10:58 07/26/2021 Venous) AM CDT 11:24 AM CDT Virginie Batista M.D. LAB BLOOD ADD-ON Performing Organization Address City/State/ZIP Code Phon e Number [facility] - [address] [place] [address] Laboratories-[address] Type and Screen (with reflex Antibody ID) (07/26/2021 10:57 AM CDT) [facility] Method Time Signature ABORh B Pos Not 07/26/2021 STRM applicable 3:48 PM CDT Antibody Negative Negative 07/26/2021 STRM Screen 4:04 PM CDT Type & Screen 07/29/2021 07/26/2021 STRM Expiration 23:59 3:48 PM CDT Testing Jcarlos DEFAULT 07/26/2021 STRM Location 3:29 PM CDT Specimen Anatomical Collection Method Collection Time Receive d Time (Source) Location / / Volume Laterality Blood (Blood, 07/26/2021 10:57 07/26/2021 3:29 Venous) AM CDT PM CDT Virginie Batista M.D. LAB BLOOD BANK TEST ORDERABL ES Performing Organization Address City/State/ZIP Code Phon e Number [address] [place] [address] (ABNORMAL) Hepatic Function Panel (07/26/2021 10:57 AM CDT) [facility] Method Time Signature Bilirubin, Total, S 7.5 (H) <=1.2 07/26/2021 DTL mg/dL 3:17 PM CDT Bilirubin, Direct, S 3.9 (H) 0.0 - 0.3 07/26/2021 DTL mg/dL 3:17 PM CDT Aspartate 65 (H) 8 - 43 07/26/2021 DTL Aminotransferase U/L 3:17 PM CDT (AST), S Alanine 27 7 - 45 07/26/2021 DTL Aminotransferase U/L 3:17 PM CDT (ALT), S Alkaline 166 (H) 35 - 104 07/26/2021 DTL Phosphatase, S U/L 3:17 PM CDT Albumin, S 3.0 (L) 3.5 - 5.0 07/26/2021 DTL g/dL 3:17 PM CDT Protein, Total, S 5.1 (L) 6.3 - 7.9 07/26/2021 DTL g/dL 3:17 PM CDT Specimen Anatomical Collection Method Collection Time Receive d Time (Source) Location / / Volume Laterality Blood (Blood, 07/26/2021 10:57 07/26/2021 2:55 Venous) AM CDT PM CDT Virginie Batista M.D. LAB BLOOD ADD-ON Performing Organization Address City/[facility] Phon e Number [facility] - [address] Magnesium (07/26/2021 10:57 AM CDT) P athologist Signature Magnesium, S 1.8 1.7 - 2.3 07/26/2021 DTL mg/dL 3:17 PM CDT Specimen Anatomical Collection Method Collection Time Receive d Time (Source) Location / / Volume Laterality Blood (Blood, 07/26/2021 10:57 07/26/2021 2:55 Venous) AM CDT PM CDT Virginie Batista M.D. LAB BLOOD ADD-ON Performing Organization Address City/[facility] Phon e Number [facility] - [address] ECG 12 Lead (07/26/2021 9:10 AM CDT) P athologist Signature Ventricular Rate 77 BPM MUSE ECG/Min NE Interval 160 ms MUSE QRSD Interval 92 ms MUSE QT Interval 418 ms MUSE QTC Interval 473 ms MUSE P [place] -12 degrees MUSE R [place] 53 degrees MUSE T Wave [place] -6 degrees MUSE Specimen Anatomical Collection Method Collection Time Receive d Time (Source) Location / / Volume Laterality 07/26/2021 9:10 AM 9:58 CDT AM CDT Impressions MUSE - 07/26/2021 9:58 AM CDT Normal sinus rhythm Nonspecific T wave abnormality When compared with ECG of 21-MAR-2021 10 :06, No significant change was found Reviewed by STERLING Garrison Narrative This result has an attachment that is no t available. Procedure Note Wilfredo Diggs M.D. - 07/26/2021Formatt ing of this note might be different from the original. IMPRESSION: Normal sinus rhythm Nonspecific T wave abnormality When compared with ECG of 21-MAR-2021 10 :06, No significant change was found Reviewed by STERLING Garrison Virginie Batista M.D. ECG ORDERABLES Performing Organization Address City/State/ZIP Code Phon e Number MUSE MUSE NA documented in this encounter Visit Diagnoses Diagnosis Vomiting - Primary documented in this encounter Admitting Diagnoses Diagnosis Vomiting documented in this encounter Administered Medications Inactive Administered Medications - up to 3 most recent administrations Medication Order MAR Action Action Date Dose Rate Site acetaminophen tablet 325 mg Given 07/26/2021 4:14 PM CDT 325 mg (TYLENOL) 325 mg, oral, Every 6 hours PRN, mild pain or score 1-3 of 10, moderate pain or score 4-6 of 10, severe pain or score 7-10 of 10, headaches, Starting on 07/26/21 at 1038 xkoyybyvoxkyp-wmlbfpdbel-kdzrwzzt in Lipoderm Given 07/28/19 10:15 AM CDT 1 g 2%-5%-5% cream 1 g 1 g, topical, 2 times daily PRN, for leg pain, Starting on 07/26/21 at 1118 Given 07/27/2021 1:08 AM CDT 1 g Given 07/26/2021 12:20 PM CDT 1 g cholecalciferol tablet 400 Units (VITAMIN Given 2021 8:00 AM CDT 400 Units D3) 400 Units, oral, Daily, First dose on 07/27/21 at 0900, cholecalciferol 400 units oral daily was interchanged for ergocalciferol 400 units oral daily ciprofloxacin tablet 500 mg (CIPRO) Given 07/27/2021 8:00 AM CDT 500 mg 500 mg, oral, Daily before breakfast, First dose on 07/27/21 at 0700, Take 2 hours before or 6 hours after antacids containing magnesium or aluminum, sucralfate, didanosine, polymeric phosphate binders, or products containing calcium, iron, or zinc., Drug Monitoring Program: Pharmacist to adjust medication dosing based on indication and drug clearance factors., Indications: Prophylaxis, medical folic acid tablet 1 mg Given 07/27/2021 8:00 AM CDT 1 mg 1 mg, oral, Daily, First dose on 07/27/21 at 0900 folic acid tablet 5 mg 5 mg, oral, Daily, First dose (after last modification ) on 07/28/21 at 0900 furosemide tablet 20 mg (LASIX) Given 07/27/2021 8:00 AM CDT 20 mg 20 mg, oral, Daily, First dose on 07/26/21 at 1045 Given 07/26/2021 11:16 AM CDT 20 mg gabapentin capsule 300 mg (NEURONTIN) Given 07/27/2021 2:06 PM CDT 300 mg 300 mg, oral, 3 times daily, First dose on 07/26/21 at 1400 Given 07/27/2021 8:00 AM CDT 300 mg Given 07/26/2021 8:07 PM CDT 300 mg heparin (porcine) Given 07/26/2021 8:07 PM CDT 5,000 Units Right Upper injection 5,000 Units Abdomen 5,000 Units, subcutaneous, Every 8 hours scheduled, First dose on 07/26/21 at 1400 Given 07/26/2021 2:09 PM CDT 5,000 Units Left Lower Abdomen hydrOXYzine tablet 25 mg (ATARAX) Given 07/27/2021 1:06 AM CDT 25 mg 25 mg, oral, Daily at bedtime, First dose on 07/26/21 at 2100 lactulose solution 30 g (CHRONULAC) Given 07/27/2021 2:06 PM CDT 30 g 30 g, oral, 3 times daily, First dose on 07/26/21 at 1400 Given 07/27/2021 8:00 AM CDT 30 g Given 07/26/2021 8:07 PM CDT 30 g magnesium oxide tablet 400 mg (MAG-OX) Given 07/27/2021 8:00 AM CDT 400 mg 400 mg, oral, 2 times daily before breakfast and dinner, First dose on 07/26/21 at 1600 Given 07/26/2021 4:14 PM CDT 400 mg melatonin tablet 3 mg 3 mg, oral, Bedtime PRN, sleep, Starting on Sat 2 at 1354 zigjzwpdqwsx-jjhy-ZE-Ca-minerals 400 mcg Given 07/27/2021 8:00 A M CDT 1 tablet (folic acid) tablet 1 tablet (THERAPEUTI C-M) 1 tablet, oral, Daily, First dose on 07/27/21 at 0900 ondansetron ODT disintegrating tablet 4 mg Given 07/26/2021 5:22 PM CDT 4 mg (ZOFRAN-ODT) 4 mg, oral, Every 6 hours PRN, nausea, vomiting, Starting on 07/26/21 at 1615, When splitting ODT at bedside, handle with gloves and a pill splitter to prevent moisture contact. oxyCODONE IR tablet 5 mg (ROXICODONE) Given 07/27/2021 2:44 PM CDT 5 mg 5 mg, oral, Every 6 hours PRN, moderate pain or score 4-6 of 10, severe pain or score 7-10 of 10, Starting on 07/26/21 at 1036 Given 07/27/2021 8:13 AM CDT 5 mg Given 07/26/2021 10:37 PM CDT [address] tablet 40 mg (PROTONIX) Given 07/27/2021 8:00 AM CDT 40 mg 40 mg, oral, Daily before breakfast, First dose on 07/27/21 at 0700, Swallow whole. Do NOT crush, chew, or split tablet. potassium chloride ER tablet 40 mEq Given 07/26/2021 2:09 PM CDT 40 mEq (KLORCON/K-TAB) 40 mEq, oral, Once, On 07/26/21 at 1345, For 1 dose, For K 3-3.4 mEq/L - give total of 40 mEq Swallow whole. Do NOT crush, chew, or split tablet., Monitor the following for replacement: Potassium, Replace Potassium per: Standard Schedule rifAXIMin tablet 550 mg (XIFAXAN) Given 07/27/2021 8:00 AM CDT 550 mg 550 mg, oral, 2 times daily, First dose on 07/26/21 at 2100, For 86 days, Indications: Prophylaxis, medical Given 07/26/2021 8:07 PM CDT 550 mg spironolactone tablet 50 mg (ALDACTONE) Given 07/27/2021 8:00 AM CDT 50 mg 50 mg, oral, Daily, First dose on 07/26/21 at 1045 Given 07/26/2021 11:16 AM CDT 50 mg thiamine tablet 100 mg (VITAMIN B1) Given 07/27/2021 8:00 AM CDT 100 mg 100 mg, oral, Every morning, First dose on 07/27/21 at 0900 documented in this encounter Active and Recently Administered Medications Times are shown in CDT. Scheduled Medication Order 07/25/2021 07/26/2021 07/27/2021 cholecalciferol tablet 400 Units (VITAMIN D3) 0800 (Given - Provider: Celena Richardson R.N.) 400 Units, oral, Daily, First dose on Donohue n 07/27/21 at 0900, cholecalciferol 400 units oral daily was interchanged for ergocalciferol 400 units oral daily ciprofloxacin tablet 500 mg (CIPRO) 0800 (Given - Provider: Celena Richardson R.N.) 500 mg, oral, Daily before breakfast, Fi rst dose on 07/27/21 at 0700, Take 2 hours before or 6 hours after antacids containing magnesium or aluminum, sucralfate, didanosine, polymeric phosphate binde rs, or products containing calcium, iron , or zinc., Drug Monitoring Program: Pharmacist to adjust medication dosing based on indication and drug clearance factors., Indications: Prophylaxis, medical folic acid tablet 1 mg (CANCELED) 0800 (Given - Provider: Celena Richardson R.N.) 1 mg, oral, Daily, First dose on 07/27/21 at 0900 folic acid tablet 5 mg 5 mg, oral, Daily, First dose (after last modification) on M on 07/28/21 at 0900 furosemide tablet 20 mg (LASIX) 1116 (Given - Pr ovider: Humera Murray RSumaNSuma) 0800 (Given - Provider: Celena Richardson R.N.) 20 mg, oral, Daily, First dose on 07/26/21 at 1045 gabapentin capsule 300 mg (NEURONTIN) 14 09 (Given - Provider: Humera Murray R.N.)2007 (Given - Provider: Ana Paula Noriega R.N.) 0800 (Given - Provider: Celena Richardson R.N.)1406 (Given - Provider: Celena R Schaeppi, R.N.) 300 mg, oral, 3 times daily, First dose on 07/26/21 at 1400 heparin (porcine) injection 5,000 Units 1409 (Given - Provider: Humera Murray R.N.)2006 (Given - Provider: Ana Paula Noriega R.N.) 0647 (Not Given - Provider: Ana Paula Noriega R.N. - Reason: Patient/family refused)1403 (Not Given - Provider: Celena Richardson R.N. - Reason: Patient/family refused - Comment: pt turns and is independent in room - d/c today) 5,000 Units, subcutaneous, Every 8 hours scheduled, First dose on 07/26/21 at 1400 hydrOXYzine tablet 25 mg (ATARAX) 0010 (Not Given - Provider: Ana Paula Noriega R.N. - Reason: Patient/family refused)0106 (Given - Provider: Ana Paula Noriega R.N. - Comment: pt preference) 25 mg, oral, Daily at bedtime, First dose on 07/26/21 at 2100 lactulose solution 30 g (CHRONULAC) 1410 (Given - Provider: Humera Murray RGabby)2006 (Given - Provider: Ana Paula Noriega R.N.) 0800 (Given - Provider: Celena Richardson R.N.)1406 (Given - Provider: Celena Richardson R.NSuma) 30 g, oral, 3 times daily, First dose on 07/26/21 at 1400 magnesium oxide tablet 400 mg (MAG-OX) 1 614 (Given - Provider: Humera Murray RSumaN.) 0800 (Given - Provider: Celena damon R.N.) 400 mg, oral, 2 times daily before break fast and dinner, First dose on 07/26/21 at 1600 gcmolrblswqc-ropu-HM-Ca-minerals 400 mcg (folic acid) tablet 1 tablet (THERAPEUTIC-M) 0800 (Given - Provid er: Celena Richardson R.NSuma) 1 tablet, oral, Daily, First dose on 07/27/[address] tablet 40 mg (PROTONIX) 0800 (Given - Provider: Celena Richardson RSumaNSuma) 40 mg, oral, Daily before breakfast, Fir st dose on 07/27/21 at 0700, Swallow whole. Do NOT crush, chew, or split tablet. potassium chloride ER tablet 40 mEq (KLORCON/K-TAB) (COMPLET ED) 1409 (Given - Provider: Humera Murray RSumaNSuma) 40 mEq, oral, Once, On 07/26/21 at 13 45, For 1 dose, For K 3-3.4 mEq/L - give total of 40 mEq Swallow whole. Do NOT crush, chew, or split tablet., Monitor the following for replacement: Potassium, Replace Potassium per: Standard Schedule rifAXIMin tablet 550 mg (XIFAXAN) 2006 (Given - Provider: Ana Paula Noriega R.N.) 0800 (Given - Provider: Celena Richardson RSumaNSuma) 550 mg, oral, 2 times daily, First dose on 07/26/21 at 2100, For 86 days, Indications: Prophylaxis, medical spironolactone tablet 50 mg (ALDACTONE) 1116 (Given - Provider: Humera Murray RSumaNSuma) 0800 (Given - Provider: Celena damon R.NSuma) 50 mg, oral, Daily, First dose on 07/26/21 at 1045 thiamine tablet 100 mg (VITAMIN B1) 0800 (Given - Provider: Celena Richardson RSumaNSuma) 100 mg, oral, Every morning, First dose on 07/27/21 at 0900 vitamin A capsule 3,000 mcg 3,000 mcg, oral, 3 times weekly (Once pe r day on Wed), First dose on Wed07/28/21 at 0900, For 109 days, Vitamin A (retinol): Units x 0.3 = mcg; 10,000 Units = 3,000 mcg Vitamin A (Supplemental B eta-carotene): Units x 0.3 = mcg Vitamin A (Dietary Beta-carotene): Units x 0.05 = mcg PRN Medication Order 07/25/2021 07/26/2021 07/27/2021 acetaminophen tablet 325 mg (TYLENOL) 16 14 (Given - Provider: Humera Murray R.N.) 325 mg, oral, Every 6 hours PRN, mild pa in or score 1-3 of 10, moderate pain or score 4-6 of 10, severe pain or score 7-10 of 10, headaches, Starting on 07/26/21 at 1038 piudneyhtnofa-gkwlivxdbu-tgzyyznk in Lipoderm 2%-5%-5% cream 1 g 1220 (Given - Provider: Humera Murray R.N.) 0108 (Given - Provider: Andrew Capellan)1015 (Given - Provider: Celena Richardson RSumaNSuma) 1 g, topical, 2 times daily PRN, for leg pain, Starting on S at 07/26/21 at 1118 melatonin tablet 3 mg 3 mg, oral, Bedtime PRN, sleep, Starting on 07/26/21 at 1354 NaCl 0.9% infusion 20-500 mL/hr, intravenous, Once as neede d, Between Units of Blood Products, Starting on 07/26/21 at 1405, For 1 dose, Infuse at the same rate as the blood infusion until tubing cleared. Nurse may red uce rate to 20 mL/hour or as otherwise d irected until next blood infusion arrives then discontinue when infusion complete. ondansetron ODT disintegrating tablet 4 mg (ZOFRAN-ODT) 1722 (Given - Provider: Humera Murray RGabby) 4 mg, oral, Every 6 hours PRN, nausea, v omiting, Starting on 07/26/21 at 1615, When splitting ODT at bedside, handle with gloves and a pill splitter to prevent moisture contact. oxyCODONE IR tablet 5 mg (ROXICODONE) 11 16 (Given - Provider: Humera Murray RGabby)2237 (Given - Provider: Ana Paula Noriega R.N.) 0813 (Given - Provider: Celena Richardson R.N.)1444 (Given - Provider: Celena Richardson RSumaNSuma) 5 mg, oral, Every 6 hours PRN, moderate pain or score 4-6 of 10, severe pain or score 7-10 of 10, Starting on 07/26/21 at 1036 documented in this encounter Care Teams Ditch Inspector Relationship Specialty Start Date End Date Elsewhere, Pcp PCP - General Family Medicine 03/10/20 11/30/21 Ervin Schroeder MD Referring Provider Family Medicine 03/24/[address] [place] [id number] documented as of this encounter
--- OUTSIDE RECORDS SUMMARY | 2021-12-28 23:31 | XMS_ITS | Encounter Summary ---
:1990 Author Organization [facility] Address [address] [place] [address] Care Team Providers Name Role Phone Elsewhere, Pcp Primary Care Provider Unavailable Reason for Visit Reason Comments Vomiting Pt reports hx of liver cirrh osis, states discussed symptoms of vomiting, inability to tolerate home m edications with specialty team and referred to ED for further evaluation. Encounter Details Date Type Department Care Team Description [facility] [address] [place] [phone] Abdominal Pain (Primary Dx); 07/26/2021 [facility] Les Jj D.O. [address] [place] [address] Nausea And Vomiting Emergency Department [address] [place] [address] Social History Tobacco Use Types [...] do you attend mandaen or Never 2021 episcopal services? 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 folic acid 1 mg tablet Take 1 tablet (1 mg 30 tablet 1 03/0407/27/2021 total) by mouth daily. folic acid 1 mg tablet Take 5 [...] documented as of this encounter ED Notes Les Jj D.O. - 07/26/2021 2:56 AM CDT Care of patient transferred to [facility] by Dr. Godwin. Disposition pending transfer to [place] for abdominal pain, generalized weakness, nausea/vomiting,underlying liver cirrhosis, and rule out SBP. No acute events, pt left with transport. VITAL SIGNS BP 96/59 Pulse 84 Temp 37.2 ??C Resp 20 Wt 58.9 kg SpO2 98% BMI 23.75 kg/m?? Final Diagnoses: as of 07/26/21 0256 Abdominal Pain Nausea And Vomiting Les Jj D.O. 07/26/21 0503 Anthony Godwin M.D. - 07/26/2021 1:46 AM CDT SUBJECTIVE: CHIEF COMPLAINT/REASON FOR VISIT: Vomiting (Pt reports hx of liver cirrhosis, states discussed symptoms of vomiting, inability to tolerate home medications with specialty team and referred to ED for further evaluation. ) HISTORY OF PRESENT ILLNESS: Catia Carias is a 31 y.o. female presents with nausea vomiting over last week, does have history of alcoholic liver cirrhosis, is unable to take her medication last week, also generalized abdominal pain. No fever. Denies any chest pain shortness breath. This been going last week, constant, no exac erbating alleviating factors. Differential diagnosis includes but not limited to nausea vomiting, spontaneous bacterial peritonitis, abdominal pain. PAST MEDICAL/FAMILY/SOCIAL HISTORY: Medical History: Past Medical History: Diagnosis Date ??? Cirrhosis Of Liver NOS Patient Active Problem List Diagnosis Date Noted ??? Deficiency Coagulation Acquired (HCC) 07/07/2021 ??? [...] and Family: Twice a week ??? Attends Yarsani Services: Never ??? Active Member of Clubs [...] - medical card, plus non medical, last 3/6/am REVIEW OF SYSTEMS: Constitutional: Negative for activity change, diaphoresis, fatigue and fever. HENT: Negative for congestion. Respiratory: Negative for cough, chest tightness and shortness of breath. Cardiovascular: Negative for chest pain. Gastrointestinal: Positive for abdominal pain, nausea and vomiting. Negative for constipation and diarrhea. Genitourinary: Negative for dysuria and hematuria. Musculoskeletal: Negative for arthralgias. Skin: Negative for rash. Neurological: Negative for weakness, numbness and headaches. Psychiatric/Behavioral: Negative for confusion. OBJECTIVE: INITIAL VITAL SIGNS: Initial Vitals Temperature Pulse Rate Heart Rate Resp Rate Blood Pressure SpO2 07/25/21 1822 07/25/21 1822 -- 07/25/21 1822 07/25/21 1822 07/25/21 182 36.8 ??C 90 18 107/68 99 % Pain Score 07/25/21 1857 9 PHYSICAL EXAMINATION: Constitutional: Nursing note and vitals reviewed. She appears well-developed and well-nourished. No distress. HENT: Head: Normocephalic. Mouth/Throat: Oropharynx is clear and moist. Mucous membranes are moist. Eyes: Conjunctivae are normal. Neck: Neck supple. Cardiovascular: Regular rhythm and normal heart sounds. Pulmonary/Chest: Effort normal and breath sounds normal. There is normal air entry. No tachypnea. Norespiratory distress. She has no wheezes. She exhibits no retraction. Abdominal: Soft and firm. Bowel sounds are normal. exhibits no distension. There is abdominal tenderness. There is no rebound and no guarding. Musculoskeletal: General: Normal range of motion. Cervical back: Normal range of motion and neck supple. Neurological: Alert and oriented to person, place, and time. Skin: Skin is warm and dry. She is not diaphoretic. There is jaundice. Psychiatric: She has a normal mood and affect. Behavior is normal. Judgment and thought content normal. @SCORINGTOOLS@ ASSESSMENT AND PLAN: ED COURSE: ED Course as of 07/26/21 0156 WedJul 25, [id number] Patient history of alcoholic liver cirrhosis, has liver failure, on SBP prophylaxis, states shehas been ill over last week with nausea vomiting, no other symptoms, unable to maintain it for medications, presents today with continued nausea vomiting and abdominal pain. Abdominal pain is generalized. She is afebrile, did obtain lab work, noted for hemoglobin at her baseline, bilirubin of over 8, but this is not far off her from a baseline, LFTs are also elevated but near her baseline. Bedside ultrasound shows small amount of ascitic fluid, initially she requested full sedation for the paracentesis as she has a fear of needles, was able to talk her into a regular attempt, did use lidocaine for anesthetic, but due to small present of fluid and liver and bowel floating in the window multiple times, placed a needle through the skin, and just in the subcu tissue, states she could not tolerate, and procedure was aborted, and will do Rocephin and admit, no beds locally, will reach out for transfer for evaluation and management of generalized weakness, nausea vomiting, underlying liver cirrhosis, and rule out SBP. Final Diagnoses: as of 07/26/21155 Abdominal Pain Nausea And Vomiting DIAGNOSIS: Final diagnoses: [R10.9] Abdominal Pain [R11.2] Nausea And Vomiting Anthony Godwin M.D. 07/26/21155 documented in this encounter Plan of Treatment Upcoming Encounters Date Type Specialty Care Team Description 01/07/2022 Office Visit [facility] Medicine Ranjit Red P.A.-[facility] [address] [place] [address] (Gwendolyn rahman) 01/12/2022 Appointment Laboratory Medicine Matthew Jerome M.B.B.S., M.D. [address] [place] [address] (Gwendolyn rahman) 01/12/2022 Appointment Laboratory Medicine Adeline Frazier M.D., Ph.D. [address] [place] [phone] (Gwendolyn rahman) 01/13/2022 Telemedicine Transplant Joel Tan L.I.C.S.W., M.S. W. [address] [place] [phone] (Wo rk) 01/13/2022 Telemedicine Transplant Matthew Jerome M.B.B.S., M.Slick. [address] [place] [phone] (Wo rk) 01/13/2022 Telemedicine Transplant Adeline Frazier M.D., Ph.D. [address] [place] [phone] (Wo rk) 01/28/2022 Office Visit Gastroenterology and Matthew Jerome, Hepatology VikBGraeme, M.Slick. [address] [place] [phone] ( rk) Scheduled Procedures Name Priority Associated Diagnoses Date/Time ESOPHAGOGASTRODUODENOSCOPY Cirrhosis Alc oholic (HCC) Hypertension Portal (HCC) ESOPHAGOGASTRODUODENOSCOPY Cirrhosis Alc oholic (HCC) Ascites Anemia Macrocytic Thrombocytopenia (HC C) Deficiency Coagulation Acquired (HCC) documented as of this encounter Procedures Procedure Name Priority Date/Time Associated Comments Diagnosis SARS CORONAVIRUS 2, STAT 07/25/2021 9:50 PM Re sults for this PCR, V CDT procedure are i n the results section. SARS CORONAVIRUS 2, STAT 07/25/2021 9:50 PM Re sults for this PCR RAPID, V CDT procedure are i n the results section. CBC WITH DIFFERENTIAL, STAT 07/25/2021 7:05 PM Results for this B CDT procedure are i n the results section. LIPASE, S/P STAT 07/25/2021 7:05 PM Results f or this CDT procedure are i n the results section. AMMONIA STAT 07/25/2021 7:05 PM Results f or this CDT procedure are i n the results section. COMPREHENSIVE STAT 07/25/2021 7:05 PM Results for this METABOLIC PANEL, S/P CDT procedu re are in the results section. documented in this encounter Results SARS Coronavirus 2, PCR Rapid, V (07/25/2021 9:50 PM CDT) [facility] Method Time Signature SARS CoV-2, Undetected Undetected 07/25/2021 MKTO PCR, Rapid, V 10:32 PM CDT Comment: ----ADDITIONAL INFORMATION---- This RT-PCR test was performed using the Daniel SARS-CoV-2 and Influenza A/B Reagent assay from [employer], which has received Emergency Use Authori zation(EUA) by the U.S. Food and Drug Administration . Fact sheets for this Emergency Use Autho rization (EUA) assay can be found at the following link s: For Healthcare Providers: https://www.fda.gov/media/892553/downloa d For Patients: https://www.fda.gov/media/395399/downloa d SARS Coronavirus 2, Source, Swab, Nasopharynx 07/02 10:06 PM CDT MKTO Rapid Specimen Anatomical Collection Method Collection Time Receive d Time (Source) Location / / Volume Laterality Varies 07/25/2021 9:50 PM CDT 10:06 PM CDT Anthony Godwin M.D. LAB MICROBIOLOGY - GENERAL O RDERABLES Performing Organization Address City/State/ZIP Code Phon e Number [facility]- [address] [place] [phone] [place] [address] SARS Coronavirus 2, PCR, V Asymptomatic (07/25/2021 9:50 PM CDT) athologist Signature SARS-Coronavir CANCELED 07/25/2021 MKTO us-2, PCR 10:06 PM CDT Comment: ----ADDITIONAL INFORMATION---- This RT-PCR test using the Xpert Xpress SARS-CoV-2/Flu/RSV assay ([employer] performed on the [employer] DX systems has received Emergency Use Authorization (EU A) by the U.S. Food and Drug Administration. Performanc e characteristics were verified by [facility] in a manner consistent with CLIA requirements . Fact sheets for this Emergency Use Autho rization (EUA) assay can be found at the following link s: For Healthcare Providers: https://www.fda.gov/media/391620/downloa d For Patients: https://www.fda.gov/media/184563/downloa d Result canceled by the ancillary. Specimen Source CANCELED 07/25/2021 10:06 PM CDT MKTO Comment: REVISED RESULTS Specimen Anatomical Collection Method Collection Time Receive d Time (Source) Location / / Volume Laterality Varies 07/25/2021 9:50 PM 2 (Nasopharynx) CDT 10:06 PM CDT Narrative [facility] - 07/25/2021 10:06 PM CDT SARS Coronavirus 2, PCR, V was cancelled on 07/25/2021 at 22:06; Duplicate test request. Anthony Godwin M.D. LAB MICROBIOLOGY - GENERAL O RDERABLES Performing Organization Address City/[facility]/ZIP Code Phon e Number [address] [address] [place] [address] System [address] (ABNORMAL) Ammonia (07/25/2021 7:05 PM CDT) P athologist Signature Ammonia, P 81 (H) <=51 07/25/2021 MKTO mcmol/L 7:29 PM CDT Specimen Anatomical Collection Method Collection Time Receive d Time (Source) Location / / Volume Laterality Blood (Blood, 07/25/2021 7:05 PM 07/26/19 7:08 Venous) CDT PM CDT Anthony Godwin M.D. LAB BLOOD NON ADD-ON Performing Organization Address City/[facility]/ZIP [facility] Phon e Number [address] [id number] [place] [address] Lipase (07/25/2021 7:05 PM CDT) P athologist Signature Lipase, P 13 13 - 60 U/L 07/25/2021 7:30 MKTO PM CDT Specimen Anatomical Collection Method Collection Time Receive d Time (Source) Location / / Volume Laterality Blood (Blood, 07/25/2021 7:05 PM 07/26/19 7:08 Venous) CDT PM CDT Anthony Godwin M.D. LAB BLOOD ADD-ON Performing Organization Address City/State/ZIP Code Phon e Number [facility]- [address] [place] [phone] [place] [address] [place] [address] System in [place] [address] [place] [address] (ABNORMAL) Comprehensive Metabolic Panel (07/25/2021 7:05 PM CDT) Analysis Performed At Patho logist Time Signature Potassium, P 3.5 (L) 3.6 - 5.2 07/25/2021 [facility]TO mmol/L 7:30 PM CDT Sodium, P 138 135 - 145 07/25/2021 [facility]TO mmol/L 7:30 PM CDT Chloride, P 104 98 - 107 07/25/2021 MKTO mmol/L 7:30 PM CDT Bicarbonate, P 23 22 - 29 07/25/2021 MKTO mmol/L 7:30 PM CDT Anion Gap, P 11 7 - 15 07/25/2021 MKTO 7:30 PM CDT BUN (Blood Urea 5 (L) 6 - 21 07/25/2021 MKTO Nitrogen), P mg/dL 7:30 PM CDT Creatinine 0.50 (L) 0.59 - 07/25/2021 MKTO 1.04 mg/dL 7:30 PM CDT eGFR-Black/Afri >90 >=60 07/25/2021 MKTO can Latvian mL/min/BSA 7:30 PM CDT Comment: ----ADDITIONAL INFORMATION---- Estimated GFR calculated using the 2009 CKD_EPI creatinine equation. eGFR Non-Black/ >90 >=60 mL/min/BSA 07/25/2021 7:30 PM CDT MKTO Comment: ----ADDITIONAL INFORMATION---- Estimated GFR calculated using the 2009 CKD_EPI creatinine equation. Calcium, Total, P 8.7 8.6 - 10.0 mg/dL 07/25/2021 7:30 PM CDT MKTO Glucose, P 116 70 - 140 mg/dL 07/25/2021 7:30 PM CDT M KTO Protein, Total, P 5.8 (L) 6.3 - 7.9 g/dL 07/25/2021 7:30 P M CDT MKTO Albumin, P 3.3 (L) 3.5 - 5.0 g/dL 07/25/2021 7:30 PM CDT M KTO Aspartate Aminotransferase 83 (H) 8 - 43 U/L 07/25/2021 7 :30 PM CDT MKTO (AST), P Alkaline Phosphatase, P 214 (H) 35 - 104 U/L 07/25/2021 7: 30 PM CDT MKTO Alanine Aminotransferase 32 7 - 45 U/L 07/25/2021 7:3 0 PM CDT MKTO (ALT), P Bilirubin, Total, P 8.9 (H) <=1.2 mg/dL 07/25/2021 7:30 PM CDT MKTO Specimen Anatomical Collection Method Collection Time Receive d Time (Source) Location / / Volume Laterality Blood (Blood, 07/25/2021 7:05 PM 07/26/19 7:08 Venous) CDT PM CDT Anthony Godwin M.D. LAB BLOOD ADD-ON Performing Organization Address City/State/ZIP Code Phon e Number [facility]- [address] [place] [phone] [place] [address] (ABNORMAL) CBC with Differential, Blood (07/25/2021 7:05 PM CDT) [facility] gist Method Time Signature Hemoglobin 7.4 (L) 11.6 - 07/25/2021 MKTO 15.0 g/dL 7:12 PM CDT Hematocrit 21.7 (L) 35.5 - 07/25/2021 MKTO 44.9 % 7:12 PM CDT Erythrocytes 2.03 (L) 3.92 - 07/25/2021 MKTO 5.13 7:12 PM CDT x10(12)/L MCV 106.9 (H) 78.2 - 07/25/2021 MKTO 97.9 fL 7:12 PM CDT RBC Distrib Width 14.0 12.2 - 07/25/2021 MKTO 16.1 % 7:12 PM CDT Platelet Count 65 (L) 157 - 371 07/25/2021 MKTO x10(9)/L 7:12 PM CDT Leukocytes 5.6 3.4 - 9.6 07/25/2021 MKTO x10(9)/L 7:12 PM CDT Neutrophils 4.14 1.56 - 07/25/2021 MKTO 6.45 7:12 PM CDT x10(9)/L Lymphocytes 0.91 (L) 0.95 - 07/25/2021 MKTO 3.07 7:12 PM CDT x10(9)/L Monocytes 0.53 0.26 - 07/25/2021 MKTO 0.81 7:12 PM CDT x10(9)/L Eosinophils 0.03 0.03 - 07/25/2021 MKTO 0.48 7:12 PM CDT x10(9)/L Basophils 0.03 0.01 - 07/25/2021 MKTO 0.08 7:12 PM CDT x10(9)/L Specimen Anatomical Collection Method Collection Time Receive d Time (Source) Location / / Volume Laterality Blood (Blood, 07/25/2021 7:05 PM 07/26/19 7:08 Venous) CDT PM CDT Anthony Godwin M.D. LAB BLOOD ADD-ON Performing Organization Address City/State/ZIP Code Phon e Number [facility]- [address] [place] [phone] [place] [address] [address] documented in this encounter Visit Diagnoses Diagnosis Abdominal Pain - Primary Nausea And Vomiting documented in this encounter Administered Medications Inactive Administered Medications - up to 3 most recent administrations Medication Order MAR Action Action Date Dose Rate Site cefTRIAXone injection 2 g (ROCEPHIN) Given 07/25/2021 9:52 PM CDT 2 g 2 g, intravenous, Once, On Wed07/25/21 at 2100, For 1 dose, If needed, reconstitute vial per package insert instructions. See IVAG for administration guidelines. , Drug Monitoring Program: Pharmacist to adjust medication dosing based on indication and drug clearance factors., Indications: Intra-abdominal infection, community acquired lidocaine 10 mg/mL (1 %) injection 10 mL Given 07/25/2021 8:30 P M CDT 10 mL (XYLOCAINE) 10 mL, infiltration, Once, On Wed07/25/21 at 2005, For 1 dose metoclopramide injection 10 mg (REGLAN) Given 07/25/2021 7:38 PM CDT 10 mg 10 mg, intravenous, Once, On Wed07/25/21 at 1919, For 1 dose morphine injection 2 mg Given 07/26/2021 3:55 AM CDT 2 mg 2 mg, intravenous, Once, On Wed07/26/21 at 0314, For 1 dose morphine injection 4 mg Given 07/25/2021 8:10 PM CDT 4 mg 4 mg, intravenous, Once, On Wed07/25/21 at 1948, For 1 dose NaCl 0.9 % bolus 250 mL New Bag 07/25/2021 7:14 PM CDT 250 mL 250 mL/hr 250 mL, intravenous, at 250 mL/hr, Administer over 1 Hours, Once, On Wed07/25/21 at 1855, For 1 dose documented in this encounter Active and Recently Administered Medications Times are shown in CDT. Scheduled Medication Order 07/24/2021 07/25/2021 07/26/2021 cefTRIAXone injection 2 g (ROCEPHIN) (COMPLETED) 2151 (Given - Provider: Keith Bahena R.N.) 2 g, intravenous, Once, On Wed07/25/21 a t 2100, For 1 dose, If needed, reconstitute vial per package insert instructions. See IVAG for administration guidelines. , Drug Monitoring Program: Pharmacist to adjust medication dosing based on indic ation and drug clearance factors., Indications: Intra-abdominal infection, community acquired cholecalciferol tablet 400 Units (VITAMIN D3) 400 Units, oral, Daily, First dose on 07/26/21 at 0900, cholecalciferol 400 units oral daily was interchanged for ergocalciferol 400 units oral daily ciprofloxacin tablet 500 mg (CIPRO) 500 mg, oral, Daily before breakfast, Fi rst dose on Wed07/26/21 at 0700, Take 2 hours before or 6 hours after antacids containing magnesium or aluminum, sucralfate, didanosine, polymeric phosphate binde rs, or products containing calcium, iron , or zinc., Drug Monitoring Program: Pharmacist to adjust medication dosing based on indication and drug clearance factors., Indications: Prophylaxis, medical folic acid tablet 1 mg 1 mg, oral, Daily, First dose on Wed07/26/21 at 0900 furosemide tablet 20 mg (LASIX) 20 mg, oral, Daily, First dose on Wed07/26/21 at 0900 lactulose solution 30 g (CHRONULAC) 30 g, oral, 3 times daily, First dose on Wed07/26/21 at 0900 lidocaine 10 mg/mL (1 %) injection 10 mL (XYLOCAINE) (COMPLE EUGENE) 2029 (Given - Provider: Ketih Bahena R.N.) 10 mL, infiltration, Once, On Wed07/25/21 at 2005, For 1 dose magnesium oxide tablet 400 mg (MAG-OX) 400 mg, oral, 2 times daily before break fast and dinner, First dose on Wed07/26/21 at 0700 metoclopramide injection 10 mg (REGLAN) (COMPLETED) 1937 (Given - Provider: Keith Bahena R.N.) 10 mg, intravenous, Once, On Wed07/25/21 at 1919, For 1 dose morphine injection 2 mg (COMPLETED) 354 (Given - Provider: Ying Delgadillo R.N.) 2 mg, intravenous, Once, On Wed07/26/21 at 0314, For 1 dose morphine injection 4 mg (COMPLETED) 2009 (Given - Provider: Keith Bahena R.N.) 4 mg, intravenous, Once, On Wed07/25/21 at 1948, For 1 dose NaCl 0.9 % bolus 250 mL (COMPLETED) 1913 (New Bag - Provider: Keith Bahena R.N.)194 (Stopped - Provider: Keith Bahena R.N.) 250 mL, intravenous, at 250 mL/hr, Admin ister over 1 Hours, Once, On Wed07/25/21 at 1855, For [address] tablet 40 mg (PROTONIX) 40 mg, oral, Daily before breakfast, Fir st dose on Wed07/26/21 at 0700, Swallow whole. Do NOT crush, chew, or split tablet. rifAXIMin tablet 550 mg (XIFAXAN) 550 mg, oral, 2 times daily, First dose on 07/26/21 at 0900, For 86 days, Indications: Prophylaxis, medical spironolactone tablet 50 mg (ALDACTONE) 50 mg, oral, Daily, First dose on 07/26/21 at 0900 documented in this encounter Additional Health Concerns Infection Onset Date Last Indicated Resolved Time COVID19 Pending 07/25/2021 07/25/2021 07/25/2021 10:07 PM CDT documented as of this encounter Care Teams Freight Car Inspector Relationship Specialty Start Date End Date Elsewhere, Pcp PCP - General Family Medicine 03/10/20 11/30/21 Ervin Schroeder MD Referring Provider Family Medicine 03/24/[address] [place] [phone] documented as of this encounter
--- OUTSIDE RECORDS SUMMARY | 2021-12-28 23:31 | XMS_ITS | Encounter Summary ---
:1990 Author Organization [facility] Address [address] [place] [address] Care Team Providers Name Role Phone Elsewhere, Pcp Primary Care Provider Unavailable Encounter Details Date Type Department Care Team Description 08/13/2021 Orders Only Department of Mousa, Matthew Y, Ascites Bacteriologist Medical silva Gastroenterology in M.Joshua Hudson (Primary Dx) [place] [id number] [facility] [address] [place] [phone] Social History Tobacco Use Types Packs/Day Years [...] or relatives? How often do you attend zoroastrianism or Never 2021 samaritan services? 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 [address] [place] [address] (Gwendolyn rahman) 01/12/2022 Appointment Laboratory Medicine Matthew Jerome M.B.BSumaS., M.D. [address] [place] [address] (Gwendolyn rahman) 01/12/2022 Appointment Laboratory Medicine Adelnie Frazier M.D., Ph.D. [address] [place] [phone] (Gwendolyn rahman) 01/13/2022 Telemedicine Transplant Joel Tan L.I.C.S.W., M.S. W. [address] [place] [phone] (Wo rk) 01/13/2022 Telemedicine Transplant Matthew Jerome M.B.B.S., M.D. [address] [place] [phone] (Wo rk) 01/13/2022 Telemedicine Transplant Adeline Frazier M.D., Ph.D. [address] [place] [phone] (Wo rk) 01/28/2022 Office Visit Gastroenterology and Matthew Jerome, Hepatology VikBGraeme, M.D. [address] [place] [phone] (Wo rk) Scheduled Procedures Name Priority Associated Diagnoses Date/Time ESOPHAGOGASTRODUODENOSCOPY Cirrhosis Alc oholic (HCC) Hypertension Portal (HCC) ESOPHAGOGASTRODUODENOSCOPY Cirrhosis Alc oholic (HCC) Ascites Anemia Macrocytic Thrombocytopenia (HC C) Deficiency Coagulation Acquired (HCC) documented as of this encounter Visit Diagnoses Diagnosis Ascites Chronic - Primary documented in this encounter Care Teams Liquid Natural Gas Plant Operator Relationship Specialty Start Date End Date Elsewhere, Pcp PCP - General Family Medicine 03/10/20 11/30/21 Ervin Schroeder MD Referring Provider Family Medicine 03/24/[address] [place] [phone] documented as of this encounter
--- OUTSIDE RECORDS SUMMARY | 2021-12-28 23:31 | XMS_ITS | Encounter Summary ---
:1990 Author Organization [facility] Address [address] [place] [address] Care Team Providers Name Role Phone Elsewhere, Pcp Primary Care Provider Unavailable Encounter Details Date Type Department Care Team Description 07/25/2021 Clinical Communication Department of Ines [place], Gastroenterology in [address] [place] [phone] Social History Tobacco Use Types Packs/Day Years [...] or relatives? How often do you attend mosque or Never 2021 jehovah's witness services? Do you belong to any clubs or No 07/17/2021 organizations such as mosque groups, unions, fraternal or athletic groups, or [...] place to sleep or slept in a fci (including now)? Education Answer Date Recorded What is the highest level of school Associate degree: ruth barker, 07/16/2021 you have completed or the highest technical, or vocational jenn bansal degree you have received? 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 - 07/25/2021 2:57 PM CDT Patient called back again. Patient states that she is going to call 911 for an ambulance. Patient states that her abdominal pain is bad and she is becoming increasing confused. Patient [facility] to [facility]. Told patient to request [place] Location. Patient is home alone as her mother and fiance are working late [facility]. Telephone Encounter - Kerry Naranjo APRN C.N.PSuma, M.S.N. - 07/25/2021 2:41 PM CDT FYI In case you get a call on this [facility] clinic cirrhotic. [place] Telephone Encounter - Kerry Naranjo APRN, C.N.P., M.S.N. - 07/25/2021 2:37 PM CDT Noted. Thank you Ines. Telephone Encounter - Ines [place] R.N. - 07/25/2021 2:17 PM CDT Patient left voicemail requesting call back. Patient states that she is having 8.5/10 abdominal pain. Patient is currently home alone and is contemplating call the ambulance to bring her to the ED. Left detailed message on voicemail advising patient to be evaluated in the ED. Telephone Encounter - Ines [place] R.N. - 07/25/2021 10:26 AM CDT Patient left message requesting call back to discuss symptoms. Patient states that last evening she had multiple nose bleeds. Patient states that between the hoursof 11 pm and 3 am she had 3-5 nosebleeds. She is unsure of the exact number. Patient states that shewas able to stop the bleeding in all of the instances. Patient states that at one point she got up to use the restroom and looked in the mirror and noticed that her nose was bleeding. Patient has left message with PCP to discuss this matter. Advised patient to present to ED or UC if bleeding re-occursand she is unable to get it stopped. Patient also wants GI provider to know that she feels that she is having some slight confusion. Patient feels that her ammonia may be rising. Patient states that she was confused this morning on what day it was. Patient does also report some dizziness and SOB. Patient states that she has been sleepingmore which is unusual for her. Patient states that she is having insomnia at night. Patient states that she has not had a BM in 2 days. She is actually unsure of the timeframe but thinks it is 2 days. Patient states that she is taking Lactulose 45 ml 3 times daily but is having trouble keeping her medications down. Patient wants to clarify that she is having trouble keeping all medica tions down for about the past week. She is continuing to take Xifaxan in addition to the lactulose. Patient is wondering if she should be evaluated or have labs drawn? documented in this encounter Plan of Treatment Upcoming Encounters Date Type Specialty Care Team Description 01/07/2022 Office Visit [facility] Ranjit Red P.A.-C. [address] [place] [phone] (Gwendolyn rahman) 01/12/2022 Appointment Laboratory Medicine Matthew Jerome M.B.B.S., MSumaD. [address] [place] [phone] (Gwendolyn rahman) 01/12/2022 Appointment Laboratory Medicine Adeline Frazier M.D., Ph.D. [address] [place] [phone] (Gwendolyn rahman) 01/13/2022 Telemedicine Transplant Joel Tan L.I.C.S.W., M.S. W. [address] [place] [phone] [phone] (Gwendolyn rahman) 01/13/2022 Telemedicine Transplant Matthew Jerome M.B.B.S., M.D. [address] [place] [phone] (Gwendolyn rahman) 01/13/2022 Telemedicine Transplant Adeline Frazier M.D., Ph.D. [address] [place] [address] [phone] (Gwendolyn rahman) 01/28/2022 Office Visit Gastroenterology and Matthew Jerome, Hepatology Lilian Santillan [address] [place] [phone] (Wo rk) Scheduled Procedures Name Priority Associated Diagnoses Date/Time ESOPHAGOGASTRODUODENOSCOPY Cirrhosis Alc oholic (HCC) Hypertension Portal (HCC) ESOPHAGOGASTRODUODENOSCOPY Cirrhosis Alc oholic (HCC) Ascites Anemia Macrocytic Thrombocytopenia (HC C) Deficiency Coagulation Acquired (HCC) documented as of this encounter Visit Diagnoses Not on filedocumented in this encounter Care Teams Java Web User Interface Developer Relationship Specialty Start Date End Date Elsewhere, Pcp PCP - General Family Medicine 03/10/20 11/30/21 Ervin Schroeder MD Referring Provider Family Medicine 03/24/[address] [place] [phone] documented as of this encounter
--- OUTSIDE RECORDS SUMMARY | 2021-12-28 23:32 | XMS_ITS | Encounter Summary ---
:1990 Author Organization [facility] Address [address] [place] [address] Care Team Providers Name Role Phone Elsewhere, Pcp Primary Care Provider Unavailable Reason for Visit Reason Comments Altered Mental Status Urinary Tract Infection Encounter Details Date Type Department Care Team Description 07/19/2021 Nurse Triage Department of [facility] Catia Maynard [facility], [place] R, R.N. Status; Urinary Tract Clinic, in [place], [address] Infection [place], [place] [address] [place] [phone] [place] [phone] Social History Tobacco Use Types Packs/Day Years [...] do you attend spiritism or Never 2021 congregational services? 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 - 07/19/2021 12:56 AM CDT Chief Complaint / Reason for Call Patient is a 31 y.o. female calling regarding Altered Mental Status and Urinary Tract Infection. Assessment Concern: Patient calling with concern slight confusion, and small urination, she knows who, where, and what things are just did not know that it was Wednesday. Urine is dark, patient states that she has been sleeping all day. Patient states that she just got home from the Emergency Room in [place], patient is wondering if she can talk to GI. Spoke with Brian ABBOTT he is going to give patient a callback with ERICA munoz. Present for: today Home cares tried: lactulose Calling to request: To speak to GI The recommended disposition is No disposition on file.. documented in this encounter Plan of Treatment Upcoming Encounters Date Type Specialty Care Team Description 01/07/2022 Office Visit [facility] Ranjit Red P.A.-C. [address] [place] [phone] (Wo rk) 01/12/2022 Appointment Laboratory Medicine Matthew Jerome M.B.B.SSuma, Lilian [address] [place] [phone] (Wo rk) 01/12/2022 Appointment Laboratory Medicine Adeline Frazier M.D., Ph.D. [address] [place] [phone] (Wo rk) 01/13/2022 Telemedicine Transplant Joel Tan L.I.C.SZara, M.S. W. [address] [place] [phone] (Wo rk) 01/13/2022 Telemedicine Transplant Matthew Jerome M.B.B.SSuma, M.D. [address] [place] [phone] (Wo rk) 01/13/2022 Telemedicine Transplant Adeline Frazier M.D., Ph.D. [address] [place] [phone] (Wo rk) 01/28/2022 Office Visit Gastroenterology and Matthew Jerome, Hepatology FredySSuma, M.Slick. [address] [place] [phone] (Wo rk) Scheduled Procedures Name Priority Associated Diagnoses Date/Time ESOPHAGOGASTRODUODENOSCOPY Cirrhosis Alc oholic (HCC) Hypertension Portal (HCC) ESOPHAGOGASTRODUODENOSCOPY Cirrhosis Alc oholic (HCC) Ascites Anemia Macrocytic Thrombocytopenia (HC C) Deficiency Coagulation Acquired (HCC) documented as of this encounter Visit Diagnoses Not on filedocumented in this encounter Care Teams Ged Preparation Teacher Relationship Specialty Start Date End Date Elsewhere, Pcp PCP - General Family Medicine 03/10/20 11/30/21 Ervin Schroeder MD Referring Provider [facility] Medicine 03/24/[address] [place] [phone] documented as of this encounter
--- OUTSIDE RECORDS SUMMARY | 2021-12-28 23:32 | XMS_ITS | Encounter Summary ---
:1990 Author Organization [facility] Address [address] [place] [address] Care Team Providers Name Role Phone Elsewhere, Pcp Primary Care Provider Unavailable Reason for Referral Outpatient (Routine) - Closed Specialty Diagnoses / Referred By Contact Referred To Procedures Contact Gastroenterology and Kerry Naranjo, [facility] Hepatology Elizabeth VIGIL.S.N., R.N. [address] [place] [address] Referral ID Status Reason Start Date Expiration Date Visits Requ ested Visits Authorized [id number] Closed 07/21/2021 07/21/2022 1 1 edication Prior Authorization - Closed Specialty Diagnoses / Procedures Referred By Contact Refer red To Contact Kerry Naranjo APRN M.S.N., R.N. [address] [place] [phone] Referral ID Status Reason Start Date Expiration Date Visits Requ ested Visits Authorized [id number] Closed 1 1 Reason for Visit Outpatient (Routine) - Closed Specialty Diagnoses / Referred By Contact Referred To Procedures Contact Gastroenterology and Kerry Naranjo, [facility] Hepatology YARITZA, M.S.N., R.N. [address] [place] [address] Referral ID Status Reason Start Date Expiration Date Visits Requ ested Visits Authorized [id number] Closed 04/17/2021 04/17/2022 1 1 Encounter Details Date Type Department Care Team Description 07/21/2021 Telemedicine Department of Kerry Naranjo Cirrhosis Alc oholic (HCC) (Primary Dx); Gastroenterology in S, CLAM DIGGER, Ascites; [place], [place] M.S.N., R.N. Deficiency Vitamin D; [facility] [place] [id number] [facility] Malnutrition Protein-Calorie Unspecified (HCC); [place] [address] [place], [place] Deficiency Coagulation Acqui red (HCC); [phone] Thrombocytopenia (HCC); [phone] Jaundice (Work) Social History Tobacco Use Types Packs/Day [...] do you attend taoist or Never 2021 taoism services? 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 - 07/21/2021 2:45 PM CDT Patient to report any new or worsening symptoms: confusion, fluid retention including increased abdominal girth, distention or lower extremity swelling or gastro intestinal bleeding. Refer to the nearest emergency department if patient notices any blood with the stool, black stools, or if there is bloody vomiting. -At risk for Osteoporosis/osteopenia, -Bone density scan needs to be discussed with her PCP - Continue Furosemide 20 mg per day and spironolactone 50 mg per day. - Low sodium diet, up to 2000 mg of sodium per 24 hours. - Continue lactulose with dose titration to maintain 3-4 bowel movements daily, soft stools. - Continue rifaximin. -instructed to consider two daily protein shakes and 3 small meals - Encouraged bedtime snack. - Avoid uncooked seafood and shellfish - Avoid NSAIDS and no alcohol use- -will need ultrasound with liver Doppler please comment on vasculature and biliary system, plus laboratory at end of July beginning of August including vitamin-A level, vitamin-D level, hepatic panel, BMP, CBC with differential, PT INR, alpha fetoprotein tumor marker, zinc -Vitamin A prescribed to Patrica, she -ordered Vitamin K 5 mg X 7 days prior to EGD; also may need -EGD/MAC. MAC sedation as screening for varices with possible banding -GI follow-up with Dr. Jerome next available; to have formal discussion regarding transplant options Unfortunately the patient was having difficulty on her and with her video access to complete this appointment. Will reach out to her via nursing with instructions to find a internal medicine provider at [facility] or [place]; if she feels she needs to be seen more urgently; I would recommend the [facility] which is closest to her. For emergency situation she should present to any emergency department that is closest to her. documented in this encounter Progress Notes Kerry Naranjo APRN, C.N.P., M.S.N. - 07/21/2021 2:45 PM CDT Kerry Naranjo APRN, C.N.P., M.S.N. [address] [place] [address] Patient Name: Catia Carias Date of : 1990 Date of encounter: 07/21/21 ELSEWHERE, PCP VIDEO VISIT Consult conducted via real-time audio/video technology by Kerry Naranjo APRN, C.N.P., M.S.N. at the [facility] to the patient in their home. At the time the patient was scheduled, the spares scheduler read the following script to the patient: ???Video and phone medical visits will be billed to your insurance the same as if you were being seen face to face. Knowing this, are you in agreement with changing your appointment to a video or phonevisit??? SUBJECTIVE CHIEF COMPLAINT/REASON FOR VISIT Follow up for liver disease HISTORY OF PRESENT ILLNESS Catia Carias is a 31 y.o. female who presented to the GI clinic via video for evaluation and management of her decompensated alcoholic cirrhosis of the liver. She was last seen for this concern on 04/17/2021. Since that visit she has had multiple emergency room encounters for complaints of pain. She denies abdominal pain today. Still has pain in her legs but her main concern is not able to keepthe lactulose down. She states the lactulose makes her vomit and she believes she does not get much down. Her last ammonia level was elevated. She continues to take rifaximin. She appears to be alert, oriented, and able to express her thoughts well with good detail. She reports mild lower extremity edema, states she continues to take her diuretics as prescribed. Relevant GI workup included: During her recent hospitalization on 03/12/2021 the GI inpatient service was asked to consult for this patient with past medical history significant for recurrent pancreatitis, ADHD, marijuana use, probable alcohol use, and fairly recent diagnosis of cirrhosis with ascites who presented from OSH afterbeing found unresponsive and incontinent at home. She was critically ill, with fever leukocytosis, anemia, thrombocytopenia, coagulopathy, multiple electrolyte abnormalities, altered mental status, andelevated liver enzymes. She also had right sided pleural effusion and consolidation and previous imaging with portal vein hypertension and cavernous transformation. She was intubated admitted to the ICU and when she had NG tube placed, it was with coffee-ground return. Previous RUQ ultrasound and CT from 03/26/2020 with mild fatty liver, no ascites, otherwise unremarkable. At that time, there was no splenomegaly. There was resolution of recent acute pancreatitis from 11/2019. In 2019, she had elevated liver enzymes. Negative smooth muscle, negative viral hepatitis.She did have +SAMMY. She has multiple episodes of pancreatitis, etiology unclear as she had denied alcohol use. It appears her ascites began in January 2021. CT with moderate ascites, hepatomegaly and fatty liver, portal venous hypertension with recanalized umbilical vein, splenomegaly, and ascites. At that time has R pleural effusion and dependent atelectasis as well. MRCP with mild diffuse hepatic steatosis, hepatomegaly, splenomegaly, normal biliary anatomy and moderate-large ascites and edema. She also had a right upper quadrant ultrasound with concern for course liver echotexture, cavernous transformation of the portal vein, and ascites. Ascites is new from 01/22/2021. She had elevation in liver enzymes with AST 103, ALT 20, alk-phos 165, elevated bilirubin to 4.5 and hyponatremia. Paracentesis with SAAG >1.1, low total protein at <0.8. No SBP. Her MELD at that time was 25. Eventually did well enough to be extubated and transferred out to a lower level of care prior to her discharge on 03/24/2021. Since her discharge she has followed up with her primary care provider Dr. Ervin Schroeder, from [facility] in [facility]; phone [phone], . She stateshe prescribed vitamin-D for GERD vitamin-D deficiency however she has not initiated taking it. She had hospital discharge lab however those results are not available to me at this time. She denies any use of alcohol since her discharge. Today, she continues to have jaundice, scleral icterus,no asterixis. May be some component of mild hepatic encephalopathy in relation to memory recall and perhaps sleeping too much during the day per her report to 4 hours of sleep during the day. Otherwise she is alert, oriented and answers questions a ppropriately with good response time. Her abdomen is flat, trace amount of bilateral lower extremity edema. She reports taking lactulose but not as prescribed. She stated she was only taking it twice a day asit her understanding was she was dosing yanira number of ammonia. We had detailed conversation regarding the need to continue to take the lactulose as prescribed which it was t.i.d. to accomplish bowel movements 3-4 per day. She has been having to on occasion 3 bowel movements per day, denies hematochezia or melena. The following portions of the patient's history were reviewed and updated as appropriate: Allergies,Current Medications, Medical History, Surgical History, Family History and Social History MEDICAL HISTORY Past Medical History: Diagnosis Date ??? Cirrhosis Of Liver NOS SURGICAL HISTORY Past Surgical History: Procedure Laterality Date ??? ELBOW SURGERY Left 2018 per patient ??? TENDON REPAIR Left left foot per patient FAMILY HISTORY No family history on file. SOCIAL HISTORY Social History Socioeconomic History ??? Marital status: [...] and Family: Twice a week ??? Attends Caodaism Services: Never ??? Active Member of Clubs [...] Unstable Housing in the Last Year: No CURRENT MEDICATIONS Reviewed and reconciled. Current Outpatient Medications on File Prior to Visit Medication Sig Dispense Refill ??? ciprofloxacin (CIPRO) 500 mg tablet Take 1 tablet (500 mg total) by mouth every morning before breakfast Indications: Prophylaxis, medical. 30 tablet 11 ??? ergocalciferol (DRISDOL) 50,000 Unit capsule Take 50,000 Units by mouth once a week. ??? folic acid 1 mg tablet Take 1 tablet (1 mg total) by mouth daily. 30 tablet 1 ??? furosemide (LASIX) 20 mg tablet Take 1 tablet (20 mg total) by mouth daily. 30 tablet 1 ??? gabapentin (NEURONTIN) 300 mg capsule Take 300 mg by mouth 3 (three) times a day. ??? lactulose (CHRONULAC) 10 gram/15 mL solution Take 45 mL by mouth 3 (three) [...] (ROXICODONE) 5 mg immediate release tablet Take 2.5-5 mg by mouth 2 (two) times a day as needed for pain. ??? pantoprazole (PROTONIX) 40 mg EC tablet Take 1 tablet (40 mg total) by mouth every morning before breakfast. 30 tablet 1 ??? promethazine (PHENERGAN) 25 mg tablet Take 25 mg by mouth every 6 (six) hours as needed for nausea. ??? spironolactone (ALDACTONE) 50 mg tablet Take 1 tablet (50 mg total) by mouth daily. 30 tablet 1 ??? traMADoL (ULTRAM) 50 mg tablet Take 50 mg by mouth every 6 (six) hours as needed for pain. ??? vitamin A 3,000 mcg (10,000 Unit) capsule Take 1 capsule (3,000 mcg total) by mouth 3 (three) times a week for 50 doses. (Patient not taking: No sig reported) 50 capsule 0 ??? Vitamin B-1, mononitrate, 100 mg tablet Take 100 mg by mouth every morning. ??? Xifaxan 550 mg tablet Take 550 mg by mouth 2 (two) times a day. No current facility-administered medications on file prior to visit. ALLERGIES/CONTRAINDICATIONS Allergies Allergen Reactions ??? Azithromycin Other (see comments) Unknown REVIEW OF SYSTEMS Constitutional: Positive for fatigue. Cardiovascular: Positive for chest pain, pressure or tightness, swelling in the legs or feet and pain in the calf muscles when walking. Musculoskeletal: Positive for arthralgias, back pain, pain or stiffness in the joints, joint swelling and muscle pain/stiffness. Neurological: Positive for light-headedness, numbness or shooting pain in hands, arms, legs, or feet, loss of balance or tendency to fall easily, headaches and weakness in arms or legs. The following systems were negative: Skin, Eyes, ENT, Respiratory, GI, , Hematologic, Psych OBJECTIVE Physical Exam VITAL SIGNS There were no vitals filed for this visit. There is no height or weight on file to calculate BMI. DIAGNOSTICS Relevant, available EMR, lab work, imaging reports and endoscopy reports reviewed. ASSESSMENT / PLAN #1 Decompensated cirrhosis secondary to alcohol: MELD-Na score: 25 at 03/24/2021 6:15 AM MELD score: 25 at 03/24/2021 6:15 AM Calculated from: Serum Creatinine: 0.35 mg/dL (Using min of 1 mg/dL) at 03/24/2021 6:15 AM Serum Sodium: 139 mmol/L (Using max of 137 mmol/L) at 03/24/2021 6:15 AM Total Bilirubin: 7.8 mg/dL at 03/24/2021 6:15 AM INR(ratio): 2.7 at 03/24/2021 6:15 AM Age: 30 years Current MELD-Na score = MELD-Na score: 25 at 03/24/2021 6:15 AM MELD score: 25 at 03/24/2021 6:15 AM Calculated from: Serum Creatinine: 0.35 mg/dL (Using min of 1 mg/dL) at 03/24/2021 6:15 AM Serum Sodium: 139 mmol/L (Using max of 137 mmol/L) at 03/24/2021 6:15 AM Total Bilirubin: 7.8 mg/dL at 03/24/2021 6:15 AM INR(ratio): 2.7 at 03/24/2021 6:15 AM Age: 30 years Current complications: Jaundice with scleral icterus, hepatic encephalopathy, minimal/trace leg edema, no ascites, recent variceal bleeding, no HCC. We explained to the patient the diagnosis ???of decompensated cirrhosis?? and the complications of cirrhosis. We provided counseling regarding management of this disease. #2 Fluid retention: Trace lower extremity edema and none ascites. - Continue Furosemide 20 mg per day and spironolactone 50 mg per day. - Low sodium diet, up to 2000 mg of sodium per 24 hours. #3 Portal hypertension with splenomegaly and thrombocytopenia. #4 Unknown if has esophageal varices #4 Possible Portal hypertensive gastropathy Beta-tommy not currently on. Heart rate = 80 Next UPPER ENDOSCOPY scheduled 08/2021 #5 Hepatic encephalopathy: Controlled, likely some component stage 0-1 - Continue lactulose with dose titration to maintain 3-4 bowel movements daily, soft stools. - Continue rifaximin. - Needs lab to test for Zinc deficiency end of July or beginning August 2021 #6 At risk for hepatocellular carcinoma: Small appearing pancreas, with calcifications in the pancreatic head, due to past history of alcoholic pancreatitis - No evidence of hepatocellular carcinoma: last imaging CT on 03/03/2021. - Continue HCC screening with abdominal imaging every 6 months-due end of July or beginning August 2021 - also will order AFP for end of July or August 2021 #7 Jaundice with scleral icterus #8 Bone health: At risk Osteoporosis/osteopenia Bone density scan needs to be discussed with her PCP #9 Fat soluble vitamin deficiency: Vitamin D deficient, has been prescribed by her PCP-should have recheck of level end of July or August 2021 Vitamin A deficient will need end of July or August 2021 Vitamin-A deficiency: If Vitamin A level is less than 10 but not symptomatic, have ordered for her to take 10,000 international units 3 times per week. #10 Malnutrition: Malnutrition (undernutrition) related to liver failure as evidenced by ascites -instructed to consider two daily protein shakes and 3 small meals - Encouraged bedtime snack. - Avoid uncooked seafood and shellfish - Avoid NSAIDS and no alcohol use- #11 Immunization Received vaccines against B viruses and may need vaccine for hepatitis A Annual flu shot and pneumonia vaccine: to [...] stools, or if there is bloody vomiting. Recommendations Patient to report any new or worsening symptoms: confusion, fluid retention including increased abdominal girth, distention or lower extremity swelling or gastro intestinal bleeding. Refer to the nearest emergency department if patient notices any blood with the stool, black stools, or if there is bloody vomiting. -At risk for Osteoporosis/osteopenia, -Bone density scan needs to be discussed with her PCP - Continue Furosemide 20 mg per day and spironolactone 50 mg per day. - Low sodium diet, up to 2000 mg of sodium per 24 hours. - Continue lactulose with dose titration to maintain 3-4 bowel movements daily, soft stools. - Continue rifaximin. -instructed to consider two daily protein shakes and 3 small meals - Encouraged bedtime snack. - Avoid uncooked seafood and shellfish - Avoid NSAIDS and no alcohol use- -will need ultrasound with liver Doppler please comment on vasculature and biliary system, plus laboratory at end of July beginning of August including vitamin-A level, vitamin-D level, hepatic panel, BMP, CBC with differential, PT INR, alpha fetoprotein tumor marker, zinc -Vitamin A prescribed to Patrica, she reports she has not been taking this supplement as her attempts to bulk picker from her pharmacy were unsuccessful. -ordered Vitamin K 5 mg X 7 days prior to EGD; also may need additional transfusions with FFP/platelets -EGD/MAC. MAC sedation as screening for varices with possible banding -GI follow-up with Dr. Jerome next available; to have formal discussion regarding transplant eligibility Unfortunately the patient was having difficulty on her end with her video access at end of the appt.Will reach out to her via nursing with instructions to find a internal medicine provider at [facility] or [place]; if she feels she needs to be seen more urgently; I would recommend the [facility] which is closest to her. For emergency situation she should present to any emergency department that is closest to her. It was a pleasure seeing Ms. Carias today. Patient had multiple thought provoking questions for me. These were answered to the best of my ability. Shared decision-making was used throughout the visit and the patient is in agreement to proceed the plan as detailed above. AVS is available electronically to the patient on the Patient Portal. I personally spent over half of a total 45 minutes video face to face with the patient in counseling, education, and discussion and/or coordination of care as described above. Kerry Naranjo APRN, Katrin.N.Shanita., M.S.N. Gastroenterology and Hepatology [facility] documented in this encounter Plan of Treatment Upcoming Encounters Date Type Specialty Care Team Description 01/07/2022 Office Visit Community Internal Medicine Ranjit Red P.A.-C. [address] [place] [address] (Wo rk) 01/12/2022 Appointment Laboratory Medicine Matthew Jerome M.B.BSumaSSuma, MCee. [address] [place] [phone] (Wo rk) 01/12/2022 Appointment Laboratory Medicine Adeline Frazier M.D., Ph.D. [address] [place] [phone] (Wo rk) 01/13/2022 Telemedicine Transplant Joel Tan L.I.C.S.W., M.S. W. [address] [place] [phone] (Wo rk) 01/13/2022 Telemedicine Transplant Matthew Jerome M.B.BSumaSSuma, MJules [address] [place] [phone] (Wo rk) 01/13/2022 Telemedicine Transplant Adeline Frazier M.D., Ph.D. [address] [place] [phone] (Wo rk) 01/28/2022 Office Visit Gastroenterology and Matthew Jerome, Hepatology JoshuaBSumaB.SSuma, MJules [address] [place] [phone] (Wo rk) Scheduled Procedures Name Priority Associated Diagnoses Date/Time ESOPHAGOGASTRODUODENOSCOPY Cirrhosis Alc oholic (HCC) Hypertension Portal (HCC) ESOPHAGOGASTRODUODENOSCOPY Cirrhosis Alc oholic (HCC) Ascites Anemia Macrocytic Thrombocytopenia (HC C) Deficiency Coagulation Acquired (HCC) Scheduled Referrals Name Type Priority Associated Order Schedule Diagnoses Gastroenterology and Outpatient Routine Expecte d: Hepatology office visit Referral 07/02, (clinic) Expires: 10/21/2022 documented as of this encounter Visit Diagnoses Diagnosis Cirrhosis Alcoholic (HCC) - Primary Ascites Deficiency Vitamin D Malnutrition Protein-Calorie Unspecified (HCC) Deficiency Coagulation Acquired (HCC) Thrombocytopenia (HCC) Jaundice documented in this encounter Care Teams 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
--- OUTSIDE RECORDS SUMMARY | 2021-12-28 23:32 | XMS_ITS | Encounter Summary ---
:1990 Author Organization [facility] Address [address] [place] [address] Care Team Providers Name Role Phone Elsewhere, Pcp Primary Care Provider Unavailable Reason for Visit Auth/Cert Specialty Diagnoses / Procedures Referred By Contact Refer red To Contact Diagnoses Cirrhosis Alcoholic (HCC) Cirrhosis Alcoholic (HCC) [K70.30] Procedures MA EGD TRANSORAL DX ESOPHAGOGASTRODUODENOSCOPY Referral ID Status Reason Start Date Expiration Date Visits Requ ested Visits Authorized [id number] 1 1 Encounter Details Date Type Department Care Team Description 07/02/2021 Hospital Encounter Department of David Fish, Gastroenterology in [address] [place] [phone] Social History Tobacco Use Types Packs/Day [...] or relatives? How often do you attend gnosticist or Never 2021 rastafarian services? Do you belong to any clubs or No 07/17/2021 organizations such as gnosticist groups, unions, fraternal or athletic groups, or [...] a [place] [facility] [place] (including now)? 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 ciprofloxacin (CIPRO) 500 Take 1 tablet (500 30 tablet 11 11/11/2021 mg tabletIndications: mg total) by mouth Prophylaxis, medical every morning before breakfast Indications: Prophylaxis, medical. folic acid 1 mg tablet Take 1 tablet (1 mg 30 tablet 1 11/2 06/2020 07/27/2021 total) by mouth daily. furosemide (LASIX) 20 mg Take 1 tablet (20 30 tablet 1 03/0408/03/2021 tablet mg total) by mouth daily. gabapentin (NEURONTIN) Take by mouth 3 0 05/27/1911/26/2021 300 mg capsule (three) times a day. Takes 600 mg in the morning, 600 mg in the afternoon, and 900 mg at bedtime. lactulose (CHRONULAC) 10 Take 20 g by [...] 6 (six) hours as needed for nausea. spironolactone Take 1 tablet (50 30 tablet 1 03/24/202107/2021 (ALDACTONE) 50 mg tablet mg total) by mouth daily. traMADoL (ULTRAM) 50 mg Take 50 mg by mouth 0 01/202207/21/2021 tablet every 6 (six) hours as needed for pain. vitamin A 3,000 mcg Take 1 capsule 50 capsule 0 04/18/2021 0 07/21/2021 (10,000 Unit) capsule (3,000 mcg total) by mouth 3 (three) times a week for 50 doses. Vitamin B-1, mononitrate, Take 100 mg by 0 202109/30/2021 100 mg tablet mouth every morning. Xifaxan 550 mg tablet Take 550 mg by 0 05/27/2021 07/21/2021 mouth 2 (two) times a day. documented as of this encounter Plan of Treatment Upcoming Encounters Date Type Specialty Care Team Description 01/07/2022 Office Visit [facility] Ranjit Red P.A.-C. [address] [place] [phone] (Wo rk) 01/12/2022 Appointment Laboratory Medicine Matthew Jerome M.B.B.SSuma, Lilian [address] [place] [phone] (Wo rk) 01/12/2022 Appointment Laboratory Medicine Adeline Frazier M.D., Ph.D. [address] [place] [phone] (Wo rk) 01/13/2022 Telemedicine Transplant Joel Tan L.I.C.S.W., M.S. W. [address] [place] [address] [phone] (Wo rk) 01/13/2022 Telemedicine Transplant Matthew Jerome M.B.B.S., MJules [address] [place] [phone] (Wo rk) 01/13/2022 Telemedicine Transplant Adeline Frazier M.D., Ph.D. [address] [place] [phone] (Wo rk) 01/28/2022 Office Visit Gastroenterology and Matthew Jerome, Hepatology Tyrell, MJules [address] [place] [phone] (Wo rk) Scheduled Procedures Name Priority Associated Diagnoses Date/Time ESOPHAGOGASTRODUODENOSCOPY Cirrhosis Alc oholic (HCC) Hypertension Portal (HCC) ESOPHAGOGASTRODUODENOSCOPY Cirrhosis Alc oholic (HCC) Ascites Anemia Macrocytic Thrombocytopenia (HC C) Deficiency Coagulation Acquired (HCC) documented as of this encounter Visit Diagnoses Diagnosis Cirrhosis Alcoholic (HCC) - Primary documented in this encounter Admitting Diagnoses Diagnosis Cirrhosis Alcoholic (HCC) documented in this encounter Care Teams Recycling Center Operator Relationship Specialty Start Date End Date Elsewhere, Pcp PCP - General Family Medicine 03/10/20 11/30/21 Ervin Schroeder MD Referring Provider Family Medicine 03/24/[address] [place] [address] documented as of this encounter
--- OUTSIDE RECORDS SUMMARY | 2021-12-28 23:32 | XMS_ITS | Encounter Summary ---
:1990 Author Organization [facility] Address [address] [place] [address] Care Team Providers Name Role Phone Elsewhere, Pcp Primary Care Provider Unavailable Encounter Details Date Type Department Care Team Description 07/18/2021 Nurse Triage Department of Samia Boyd ch, R.NSuma Medicine, [facility], in [address] [place] [address] [place] [phone] [place] [address] [phone] Social History Tobacco Use Types Packs/Day Years [...] do you attend judaism or Never 2021 bahai services? 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 - 07/18/2021 10:48 PM CDT Chief Complaint / Reason for Call Patient is a 31 y.o. female calling regarding No chief complaint on file.. Assessment Concern: Patient seen in [place] ED via ambulance this evening, boyfriend found her conscious butunable to respond, unclear what was determined in that ED due to no notes in chart, now speaking coherently although slurred and slow, groggy, no difficulty breathing, unable to walk without assistance, boyfriend present during call, boyfriend states she is better than when she was taken to ED, patient does have appointment Friday 07/21 with her Skiver Heel Tap Kerry Naranjo CNP for followup. Patient generally frustrated she wasn't given much information or answers in ED visit. Present for: today Home cares tried: takes medications as prescribed Calling to request: advice The recommended disposition is Information or Advice Only Call. Patient agrees to call back if worsens, has followup appointment with stamper blocker Kerry Naranjo who has been following her, also with her PCP outside [place] on Wednesday, 07/23. Patient and significant other agree to call back if worsens or have additional questions. documented in this encounter Plan of Treatment Upcoming Encounters Date Type Specialty Care Team Description 01/07/2022 Office Visit [facility] Ranjit Red P.A.-C. [address] [place] [phone] (Wo rk) 01/12/2022 Appointment Laboratory Medicine Matthew Jerome M.B.B.S., MCee. [address] [place] [phone] (Wo rk) 01/12/2022 Appointment Laboratory Medicine Adeline Frazier M.D., Ph.D. [address] [place] [phone] (Wo rk) 01/13/2022 Telemedicine Transplant Joel Tan L.I.C.S.W., M.S. W. [address] [place] [phone] (Wo rk) 01/13/2022 Telemedicine Transplant Matthew Jerome M.B.B.S., M.D. [address] [place] [phone] (Wo rk) 01/13/2022 Telemedicine Transplant Adeline Frazier M.D., Ph.D. [address] [place] [phone] (Wo rk) 01/28/2022 Office Visit Gastroenterology and Matthew Jerome, Hepatology Tyrell, MCee. [address] [place] [phone] (Wo rk) Scheduled Procedures Name Priority Associated Diagnoses Date/Time ESOPHAGOGASTRODUODENOSCOPY Cirrhosis Alc oholic (HCC) Hypertension Portal (HCC) ESOPHAGOGASTRODUODENOSCOPY Cirrhosis Alc oholic (HCC) Ascites Anemia Macrocytic Thrombocytopenia (HC C) Deficiency Coagulation Acquired (HCC) documented as of this encounter Visit Diagnoses Not on filedocumented in this encounter Care Teams Drum Carrier Relationship Specialty Start Date End Date Elsewhere, Pcp PCP - General Family Medicine 03/10/20 11/30/21 Ervin Schroeder MD Referring Provider Family Medicine 03/24/[address] [place] [address] [place] [address] documented as of this encounter
--- OUTSIDE RECORDS SUMMARY | 2021-12-28 23:32 | XMS_ITS | Encounter Summary ---
:1990 Author Organization [facility] Address [address] [place] [address] Care Team Providers Name Role Phone Elsewhere, Pcp Primary Care Provider Unavailable Encounter Details Date Type Department Care Team Description 07/15/2021 Hospital Encounter Department of Kerry Naranjo is Alcoholic Laboratory Medicine S, HYDRAULIC PILE HAMMER OPERATOR, (HCC) in [place], R.[address] [place] [phone] Social History Tobacco Use Types Packs/Day [...] do you attend protestant or Never 2021 pentecostal services? Do you [...] or slept in a residential (including now)? 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 celecoxib (CeleBREX) 200 Take 200 mg by 0 022 08/27/2021 mg capsule mouth 2 (two) times a day. ciprofloxacin (CIPRO) 500 Take 1 tablet (500 30 tablet 11 11/11/2021 mg tabletIndications: mg total) by mouth Prophylaxis, medical every morning before breakfast Indications: Prophylaxis, medical. folic acid 1 mg tablet Take 1 tablet (1 mg 30 tablet 1 03/0407/27/2021 total) by mouth daily. furosemide (LASIX) 20 [...] [facility] Ranjit Red P.A.-C. [address] [place] [address] (Wo rk) 01/12/2022 Appointment Laboratory Medicine Matthew Jerome M.B.BSumaSSuma, M.Slick. [address] [place] [phone] (Wo rk) 01/12/2022 Appointment Laboratory Medicine Adeline Frazier M.D., Ph.D. [address] [place] [phone] (Wo rk) 01/13/2022 Telemedicine Transplant Joel Tan L.I.C.S.W., M.S. W. [address] [place] [phone] (Wo rk) 01/13/2022 Telemedicine Transplant Matthew Jerome M.B.BSumaSSuma, M.D. [address] [place] [phone] (Wo rk) 01/13/2022 Telemedicine Transplant Adeline Frazier M.D., Ph.D. [address] [place] [phone] (Gwendolyn rk) 01/28/2022 Office Visit Gastroenterology and Matthew Jerome, Hepatology Elizabeth.BSumaB.SSuma, M.D. [address] [place] [phone] (Wo rk) Scheduled Procedures Name Priority Associated Diagnoses Date/Time ESOPHAGOGASTRODUODENOSCOPY Cirrhosis Alc oholic (HCC) Hypertension Portal (HCC) ESOPHAGOGASTRODUODENOSCOPY Cirrhosis Alc oholic (HCC) Ascites Anemia Macrocytic Thrombocytopenia (HC C) Deficiency Coagulation Acquired (HCC) documented as of this encounter Procedures Procedure Name Priority Date/Time Associated Diagnosis Comme nts HEPATIC FUNCTION Routine 07/15/2021 10:49 AM Cirrhosis Alcohol ic Results for this PANEL, S CDT (HCC) procedure are i n the results section. CBC WITH Routine 07/15/2021 10:49 AM Cirrhosis Alcoholic R esults for this DIFFERENTIAL, B CDT (HCC) procedure ar e in the results section. AMMONIA Routine 07/15/2021 10:49 AM Results for this CDT procedure are i n the results section. BASIC METABOLIC Routine 07/15/2021 10:49 AM Cirrhosis Alcoholi c Results for this PANEL, S/P CDT (HCC) procedure are i n the results section. documented in this encounter Results (ABNORMAL) Ammonia (07/15/2021 10:49 AM CDT) athologist Signature Ammonia, P 103 (H) <=30 07/16/2021 DTL mcmol/L 10:28 AM CDT Specimen Anatomical Collection Method Collection Time Receive d Time (Source) Location / / Volume Laterality Blood 07/15/2021 10:49 07/16/2021 8:42 AM CDT AM CDT Joshua Newsome APRNSSumaN., R.N. LAB BLOOD NON ADD-ON Performing Organization Address City/State/ZIP Code Phon e Number [facility] - [address] [place], [place] [address] [facility] [place] [address] [facility] [address] (ABNORMAL) Hepatic Function Panel (07/15/2021 10:49 AM CDT) Patholo gist Method Time Signature Bilirubin, Total, P 7.2 (H) <=1.2 07/15/2021 OWAT mg/dL 1:52 PM CDT Bilirubin, Direct, P 3.7 (H) 0.0 - 0.3 07/15/2021 OW[place] mg/dL 1:52 PM CDT Aspartate 57 (H) 8 - 43 07/15/2021 OW[place] Aminotransferase U/L 1:52 PM CDT (AST), P Alanine 25 7 - 45 07/15/2021 [facility] Aminotransferase U/L 1:52 PM CDT (ALT), P Alkaline 231 (H) 35 - 104 07/15/2021 [facility] Phosphatase, P U/L 1:52 PM CDT Albumin, P 3.5 3.5 - 5.0 07/15/2021 OW[place] g/dL 1:52 PM CDT Protein, Total, P 6.2 (L) 6.3 - 7.9 07/15/2021 OW[place] g/dL 1:52 PM CDT Specimen Anatomical Collection Method Collection Time Receive d Time (Source) Location / / Volume Laterality Blood (Blood, 07/15/2021 10:49 07/15/2021 Venous) AM CDT 12:57 PM CDT Kerry Naranjo APRN, M.S.N., R.N. LAB BLOOD ADD-ON Performing Organization Address City/State/ZIP Code Phon e Number [facility]- [address] [address] [place] [address] System in [place] [address] [facility] Basic Metabolic Panel (07/15/2021 10:49 AM CDT) P athologist Signature Potassium, P 3.8 3.6 - 5.2 07/15/2021 [facility] mmol/L 1:51 PM CDT Sodium, P 138 135 - 145 07/15/2021 [facility] mmol/L 1:51 PM CDT Chloride, P 105 98 - 107 07/15/2021 [facility] mmol/L 1:51 PM CDT Bicarbonate, P 23 22 - 29 07/15/2021 [facility] mmol/L 1:52 PM CDT Anion Gap, P 10 7 - 15 07/15/2021 OW[facility] 1:51 PM CDT BUN (Blood Urea 10 6 - 21 07/15/2021 OW[place] Nitrogen), P mg/dL 1:52 PM CDT Creatinine 0.76 0.59 - 07/15/2021 [facility] 1.04 mg/dL 1:52 PM CDT eGFR-Black/Afric >90 >=60 07/15/2021 OW[facility] an Danish mL/min/BSA 1:52 PM CDT Comment: ----ADDITIONAL INFORMATION---- Estimated GFR calculated using the 2009 CKD_EPI creatinine equation. eGFR Non-Black/ >90 >=60 mL/min/BSA 07/15/2021 1:52 PM CDT OWAT Comment: ----ADDITIONAL INFORMATION---- Estimated GFR calculated using the 2009 CKD_EPI creatinine equation. Calcium, Total, P 8.8 8.6 - 10.0 mg/dL 07/15/2021 1:52 PM CDT OWAT Glucose, P 101 70 - 140 mg/dL 07/15/2021 1:52 PM CDT O PETAR Specimen Anatomical Collection Method Collection Time Receive d Time (Source) Location / / Volume Laterality Blood (Blood, 07/15/2021 10:49 07/15/2021 Venous) AM CDT 12:57 PM CDT Kerry Naranjo APRN M.S.N., R.N. LAB BLOOD ADD-ON Performing Organization Address City/State/ZIP Code Phon e Number [facility]- [address] [place] [address] [facility] [place] [address] System in [place] [address] [facility] (ABNORMAL) CBC with Differential, Blood (07/15/2021 10:49 AM CDT) [facility] Method Time Signature Hemoglobin 8.2 (L) 11.6 - 07/15/2021 FB60 15.0 g/dL 11:02 AM CDT Hematocrit 24.6 (L) 35.5 - 07/15/2021 FB60 44.9 % 11:02 AM CDT Erythrocytes 2.26 (L) 3.92 - 07/15/2021 FB60 5.13 11:02 AM CDT x10(12)/L MCV 108.8 (H) 78.2 - 07/15/2021 FB60 97.9 fL 11:02 AM CDT RBC Distrib Width 14.4 12.2 - 07/15/2021 FB60 16.1 % 11:02 AM CDT Platelet Count 73 (L) 157 - 371 07/15/2021 FB60 x10(9)/L 11:02 AM CDT Leukocytes 7.2 3.4 - 9.6 07/15/2021 FB60 x10(9)/L 11:02 AM CDT Neutrophils 5.04 1.56 - 07/15/2021 FB60 6.45 11:02 AM CDT x10(9)/L Lymphocytes 1.14 0.95 - 07/15/2021 FB60 3.07 11:02 AM CDT x10(9)/L Monocytes 0.89 (H) 0.26 - 07/15/2021 FB60 0.81 11:02 AM CDT x10(9)/L Eosinophils 0.09 0.03 - 07/15/2021 FB60 0.48 11:02 AM CDT x10(9)/L Basophils 0.02 0.01 - 07/15/2021 FB60 0.08 11:02 AM CDT x10(9)/L Specimen Anatomical Collection Method Collection Time Receive d Time (Source) Location / / Volume Laterality Blood (Blood, 07/15/2021 10:49 07/15/2021 Venous) AM CDT 10:49 AM CDT Elizabeth Newsome APRN.S.N., R.N. LAB BLOOD ADD-ON Performing Organization Address City/State/ZIP Code Phon e Number [address] [place] [address] [facility] [address] [place] [address] System [address] documented in this encounter Visit Diagnoses Diagnosis Cirrhosis Alcoholic (HCC) documented in this encounter Care Teams Training And Documentation Specialist Relationship Specialty Start Date End Date Elsewhere, Pcp PCP - General Family Medicine 03/10/20 11/30/21 Ervin Schroeder MD Referring Provider Family Medicine 03/24/21 1980 [address], [place] [address] documented as of this encounter
--- OUTSIDE RECORDS SUMMARY | 2021-12-28 23:32 | XMS_ITS | Encounter Summary ---
:1990 Author Organization [facility] Address [address] [place] [address] Care Team Providers Name Role Phone Elsewhere, Pcp Primary Care Provider Unavailable Reason for Visit Reason Comments Sleepiness Encounter Details Date Type Department Care Team Description 07/19/2021 Documentation Division of Gastroenterology Wali Baldwin in [facility] pedro Mendez M.D. [address] [facility] [address] [place] [address] [place], [place] [phone] (Wo rk) Social History Tobacco Use Types [...] do you attend buddhism or Never 2021 jainism services? 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 - 07/19/2021 2:04 AM CDT On-call Fellow Note: Patient is not a patient of [facility] but was connected to the on- call fellow pager overnight through an unclear pathway. I initially had difficulty figuring out why she was calling, or what her intention was, because she stated that she was simply frustrated with her overall care in recent days with regard to ED visits recently. She has been dealing with pain primarily in the lower extremities, and issues surrounding sleep (either insomnia or significant fatigue/somnolence throughout the day). She states she is adherent with all medications including lactulose and ciprofloxacin. Recently started on celebrex and another medication that she cannot recall. Has recently been to theemergency department a few times for different issues, namely pain but more so concerning to the patient sleep related issues. Having lower extremity pain issues despite celebrex therapy, and thinks that her lower extremity pain has extended from her ankles to her toes now and throughout her lower extremities. She is tired of her pain, and wishes for further discussion of this with a provider. It's not her primary complaint at this time but is frustrating. Oxycodone and tramadol are on her medication list but are not being taken as she does not have them per her report, but then later on in the conv ersation she notes that she was given a short course of oxycodone by the provider in the ED yesterday for pain. She recently visited the emergency department yesterday, 07/18, for more fatigue/sleepiness. They didnot draw any labs, but elected to treat her pain with oxycodone therapy per patient report. This frustrates her. MELD-Na score is currently 23 (Na 138, Cr 0.76, Bili 7.2, INR 2.2 from laboratory evaluations on 07/15 and 07/02). Indeed the 2.2 INR was after FFP, so her MELD-Na may be worse than this truly. She has not had any transplant discussion as yet. Looking at recent laboratory values she has has consistently elevated INR in the high 2s despite not being on warfarin therapy. In viewing other labs I see that vitamin A/E have been low recently, it appears she is on vitamin A replacement but not vitamin E. I was on the phone with her for approximately 45 minutes trying to figure out what the exact genesisof her call was and what her current symptoms are. At most times she has a clear thought process anddoes not sound overtly encephalopathic. Ultimately we agreed upon a time-limited trial of managing symptoms at home with continuing her homemedication regimen. I advised that acetaminophen up to 2000mg can be utilized in patients with cirrhosis. RECOMMENDATIONS: 1. Time limited trial of home management of symptoms including trying acetaminophen up to 2gm daily 2. Continue avoidance of alcohol, as she is doing at this time 3. Chronic pain management per PCP or her gastroenterology provider, it appears she has room to potentially increase gabapentin dosing or switching to pregabalin or nortriptyline might be useful. 4. Monitor for decompensation including bleeding, encephalopathy, and SBP which were all discussed with her. 5. Consider transplant evaluation in the outpatient setting, referral provided by GI or PCP. 6. Primary provider should consider replacement of vitamin E. Chano Baldwin M.D. 07/19/21 documented in this encounter Plan of Treatment Upcoming Encounters Date Type Specialty Care Team Description 01/07/2022 Office Visit [facility] Ranjit Red P.A.-C. [address] [place] [phone] (Wo rk) 01/12/2022 Appointment Laboratory Medicine Matthew Jerome M.B.B.SSuma, M.D. [address] [place] [phone] (Wo lacey) 01/12/2022 Appointment Laboratory Medicine Adeline Frazier M.D., Ph.D. [address] [place] [phone] (Gwendolyn rahman) 01/13/2022 Telemedicine Transplant Joel Tan L.I.C.SSumaW., M.S. W. [address] [place] [phone] (Wo lacey) 01/13/2022 Telemedicine Transplant Matthew Jerome M.B.B.SSuma, M.D. [address] [place] [phone] (Gwendolyn rahman) 01/13/2022 Telemedicine Transplant Adeline Frazier M.D., Ph.D. [address] [place] [phone] (Gwendolyn rahman) 01/28/2022 Office Visit Gastroenterology and Matthew Jerome, Hepatology Elizabeth.BSumaB.SSuma, M.D. [address] [place] [phone] (Gwendolyn rahman) Scheduled Procedures Name Priority Associated Diagnoses Date/Time ESOPHAGOGASTRODUODENOSCOPY Cirrhosis Alc oholic (HCC) Hypertension Portal (HCC) ESOPHAGOGASTRODUODENOSCOPY Cirrhosis Alc oholic (HCC) Ascites Anemia Macrocytic Thrombocytopenia (HC C) Deficiency Coagulation Acquired (HCC) documented as of this encounter Visit Diagnoses Not on filedocumented in this encounter Care Teams Dispatcher Chief Coal Slurry Relationship Specialty Start Date End Date Elsewhere, Pcp PCP - General Family Medicine 03/10/20 11/30/21 Ervin Schroeder MD Referring Provider Family Medicine 03/24/[address] [place] [phone] documented as of this encounter
--- OUTSIDE RECORDS SUMMARY | 2021-12-28 23:32 | XMS_ITS | Encounter Summary ---
:1990 Author Organization [facility] Address [address] [place] [address] Care Team Providers Name Role Phone Elsewhere, Pcp Primary Care Provider Unavailable Reason for Visit Reason Comments Outpatient Infusion Fresh frozen plasma Encounter Details Date Type Department Care Team Description 07/02/2021 Infusion Department of Infusion Kerry Naranjo S, Jt hrombocytopenia (HCC) (Primary Dx); Therapy in [place], [employer], M.S.N., Cirrhos is Alcoholic (HCC); [place] R.N. Splenomegaly Acquired; 1025 [facility] 1025 [facility] Hypertension Portal (HCC) [place] [address] [place], [place] [phone] Social History Tobacco Use Types Packs/Day [...] or relatives? How often do you attend scientology or Never 2021 quaker services? Do you belong to any clubs or No 07/17/2021 organizations such as scientology groups, unions, fraLegCyte or athletic groups, or school groups? How [...] slept in a long term (including now)? 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 as of this encounter Last Filed Vital Signs Vital Sign Reading Time Taken Comments Blood Pressure 95/53 07/02/2021 12:56 PM DERRICK OPERATOR Pulse 91 07/02/2021 12:56 PM DERRICK OPERATOR Temperature 38.2 ??C (100.8 ??F) 07/02/2021 12:56 PM DERRICK OPERATOR Respiratory Rate 18 07/02/2021 12:56 PM DERRICK OPERATOR Oxygen Saturation 95% 07/02/2021 12:56 PM DERRICK OPERATOR Inhaled Oxygen Concentration - - Weight - - Height - - Body Mass Index - - documented in this encounter Plan of Treatment Upcoming Encounters Date Type Specialty Care Team Description 01/07/2022 Office Visit Community Internal Medicine Ranjit Red P.A.-C. 300 [facility] [place] [address] (Wo rk) 01/12/2022 Appointment Laboratory Medicine Matthew Jerome M.B.BGraeme, M.Jeri 1025 [place] [phone] (Wo rk) 01/12/2022 Appointment Laboratory Medicine Adeline Frazier M.D., Ph.D. [address] [place] [phone] (Wo rk) 01/13/2022 Telemedicine Transplant Joel Tan L.I.C.S.W., M.S. W. [address] [place] [address] [phone] (Wo rk) 01/13/2022 Telemedicine Transplant Matthew Jerome M.B.B.S., M.Slick. [address] [place] [phone] (Wo rk) 01/13/2022 Telemedicine Transplant Adeline Frazier M.D., Ph.D. [address] [place] [phone] (Wo rk) 01/28/2022 Office Visit Gastroenterology and Matthew Jerome, Hepatology VikBSumaSSuma, MJules [address] [place] [phone] (Wo rk) Pending Results Name Type Priority Associated Diagnoses Date/Ti dc Prepare Fresh Blood Bank Routine Thrombocytopenia (HCC) 07/02/2021 10:14 AM Frozen Plasma : 2 Cirrhosis Alcoholic (HC C) DERRICK OPERATOR Units Scheduled Procedures Name Priority Associated Diagnoses Date/Time ESOPHAGOGASTRODUODENOSCOPY Cirrhosis Alc oholic (HCC) Hypertension Portal (HCC) ESOPHAGOGASTRODUODENOSCOPY Cirrhosis Alc oholic (HCC) Ascites Anemia Macrocytic Thrombocytopenia (HC C) Deficiency Coagulation Acquired (HCC) documented as of this encounter Procedures Procedure Name Priority Date/Time Associated Diagnosis Comme nts PROTHROMBIN TIME Routine 07/02/2021 1:22 Cirrhosis Alcoholic R esults for this (PT), P PM DERRICK OPERATOR (HCC) procedure are in Thrombocytopenia (HCC) the results Splenomegaly Acq uired section. Hypertension Portal (HCC) TRANSFUSE FRESH Routine 07/02/2021 11:59 Thrombocytopeni a (HCC) FROZEN PLASMA AM DERRICK OPERATOR Cirrhosis Alcoholic (HCC) TRANSFUSE FRESH Routine 07/02/2021 10:57 Thrombocytopeni a (HCC) FROZEN PLASMA AM DERRICK OPERATOR Cirrhosis Alcoholic (HCC) PREPARE FRESH Routine 07/02/2021 10:14 Thrombocytopeni a (HCC) FROZEN PLASMA AM DERRICK OPERATOR Cirrhosis Alcoholic (HCC) documented in this encounter Results (ABNORMAL) Prothrombin Time (PT) (07/02/2021 1:22 PM DERRICK OPERATOR) [facility] Method Time Signature Prothrombin 24.6 (H) 9.4 - 12.5 07/02/2021 MKTO Time, P sec 1:39 PM DERRICK OPERATOR INR 2.2 0.9 - 1.1 07/02/2021 MKTO 1:39 PM DERRICK OPERATOR Comment: ----ADDITIONAL INFORMATION---- Standard intensity warfarin therapeutic range: 2.0 to 3.0 ?? High intensity warfarin therapeutic rang e: 2.5 to 3.5 Specimen Anatomical Collection Method Collection Time Receive d Time (Source) Location / / Volume Laterality Blood (Blood, 07/02/2021 1:22 PM 07/03/19 1:31 Venous) DERRICK OPERATOR PM DERRICK OPERATOR Joshua Newsome APRNS.Sera., R.N. LAB BLOOD ADD-ON Performing Organization Address City/State/ZIP Code Phon e Number [facility]- [address] [place] [address] [place] [address] [address] Transfuse Fresh Frozen Plasma :INR >2: Invasive proc scheduled; 180 mL/hr (07/02/2021 12:57 PM DERRICK OPERATOR) Elizabeth Newsome APRN.S.N., R.N. BLOOD TRANSFUSION OR DERABLES Transfuse Fresh Frozen Plasma :INR >2: Invasive proc scheduled; 180 mL/hr, 2 Units (07/02/2021 12:57 PM DERRICK OPERATOR) Joshua Newsome APRNS.Sera., R.N. BLOOD TRANSFUSION OR DERABLES Transfuse Fresh Frozen Plasma :INR >2: Invasive proc scheduled; 180 mL/hr (07/02/2021 11:50 AM DERRICK OPERATOR) Kerry Naranjo APRN, M.S.N., R.N. BLOOD TRANSFUSION OR DERABLES documented in this encounter Visit Diagnoses Diagnosis Thrombocytopenia (HCC) - Primary Cirrhosis Alcoholic (HCC) Splenomegaly Acquired Hypertension Portal (HCC) documented in this encounter Administered Medications Inactive Administered Medications - up to 3 most recent administrations Medication Order MAR Action Action Date Dose Rate Site acetaminophen tablet 650 mg Given 07/02/2021 1:04 PM DERRICK OPERATOR 650 mg (TYLENOL) 650 mg, oral, Once as needed, other, blood products administration, Starting on Wed07/02/21 at 1013, For 1 dose documented in this encounter Care Teams Certified Indoor Environmentalist Relationship Specialty Start Date End Date Elsewhere, Pcp PCP - General Family Medicine 03/10/20 11/30/21 Ervin Schroeder MD Referring Provider Family Medicine 03/24/[address] [place] [phone] documented as of this encounter
--- OUTSIDE RECORDS SUMMARY | 2021-12-28 23:32 | XMS_ITS | Encounter Summary ---
:1990 Author Organization [facility] Address [address] [place] [address] Care Team Providers Name Role Phone Elsewhere, Pcp Primary Care Provider Unavailable Encounter Details Date Type Department Care Team Description 07/08/2021 Clinical Communication Department of Kerry Naranjo Gastroenterology in [place], [place] M.S.N., R.N. 1025 [facility] 1025 [place] [address] [place], [place] [phone] Social History Tobacco Use Types Packs/Day [...] do you attend mandaen or Never 2021 spiritism services? Do you [...] or slept in a alf (including now)? 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 300 [place] [phone] (Gwendolyn rahman) 01/12/2022 Appointment Laboratory Medicine Matthew Jerome M.B.B.S., M.D. 1025 [place] [phone] (Gwendolyn rahman) 01/12/2022 Appointment Laboratory Medicine Adeline Frazier M.D., Ph.D. [address] [place] [phone] (Gwendolyn rahman) 01/13/2022 Telemedicine Transplant Joel Tan L.I.C.S.W., M.S. W. [address] [place] [address] [phone] (Gwendolyn rahman) 01/13/2022 Telemedicine Transplant Matthew Jerome M.B.B.S., MCee. 1025 [place] [phone] (Wo rk) 01/13/2022 Telemedicine Transplant Adeline Frazier M.D., Ph.D. [address] [place] [phone] (Wo rk) 01/28/2022 Office Visit Gastroenterology and Matthew Jerome, Hepatology Tyrell, Lilian 1025 [place] [phone] (Gwendolyn rk) Scheduled Procedures Name Priority Associated Diagnoses Date/Time ESOPHAGOGASTRODUODENOSCOPY Cirrhosis Alc oholic (HCC) Hypertension Portal (HCC) ESOPHAGOGASTRODUODENOSCOPY Cirrhosis Alc oholic (HCC) Ascites Anemia Macrocytic Thrombocytopenia (HC C) Deficiency Coagulation Acquired (HCC) documented as of this encounter Visit Diagnoses Not on filedocumented in this encounter Care Teams Corporate Legal Manager Relationship Specialty Start Date End Date Elsewhere, Pcp PCP - General Family Medicine 03/10/20 11/30/21 Ervin Schroeder MD Referring Provider Family Medicine 03/24/[address] [place] [phone] documented as of this encounter
--- OUTSIDE RECORDS SUMMARY | 2021-12-28 23:32 | XMS_ITS | Encounter Summary ---
:1990 Author Organization [facility] Address [address] [place] [address] Care Team Providers Name Role Phone Elsewhere, Pcp Primary Care Provider Unavailable Encounter Details Date Type Department Care Team Description 07/02/2021 Documentation Department of Gastroenterology Myke Fish, in [place] Lewis[facility] [address] [facility] 1025 [place] [address] [place], [place] [phone] Social History Tobacco Use Types Packs/Day [...] do you attend taoist or Never 2021 orthodoxy services? 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 - 07/02/2021 3:40 PM CST Patient came to endoscopy for elective variceal screening and for possible primary variceal prophylaxis with banding. Her INR was elevated and remained above 2 even after 2 units of FFP. Patient was explained that given elevated INR, we can do endoscopy but if she is found to have varices, we may not be able to band them due to increased risk for bleeding post badning. Furthermore, if she has varices, passage of a scope may precipitate bleeding as well and that will require banding . Alternatively since this is an elective procedure, an attempt can be made to optimize her prior to EGD.A trial of vitamin K can be done to see if this helps in lowering the INR prior to the procedure. At this time patient chose to postpone the procedure and would prefer to be optimized prior to EGD. DCAST JOURNALIST documented in this encounter Plan of Treatment Upcoming Encounters Date Type Specialty Care Team Description 01/07/2022 Office Visit Community Internal Medicine Ranjit Red P.A.-C. 300 [place] [address] (Wo rk) 01/12/2022 Appointment Laboratory Medicine Matthew Jerome M.B.BSumaSSuma, M.D. [address] [place] [phone] (Wo rk) 01/12/2022 Appointment Laboratory Medicine Adeline Frazier M.D., Ph.D. [address] [place] [address] [phone] (Gwendolyn rahman) 01/13/2022 Telemedicine Transplant Joel Tan L.I.C.S.W., M.S. W. [address] [place] [phone] (Gwendolyn rahman) 01/13/2022 Telemedicine Transplant Matthew Jerome M.B.BSumaSSuma, M.D. [address] [place] [phone] (Gwendolyn rahman) 01/13/2022 Telemedicine Transplant Adeline Frazier M.D., Ph.D. [address] [place] [address] [phone] (Gwendolyn rahman) 01/28/2022 Office Visit Gastroenterology and Matthew Jerome, Hepatology M.B.B.S., M.D. [address] [place] [phone] (Gwendolyn rahman) Scheduled Procedures Name Priority Associated Diagnoses Date/Time ESOPHAGOGASTRODUODENOSCOPY Cirrhosis Alc oholic (HCC) Hypertension Portal (HCC) ESOPHAGOGASTRODUODENOSCOPY Cirrhosis Alc oholic (HCC) Ascites Anemia Macrocytic Thrombocytopenia (HC C) Deficiency Coagulation Acquired (HCC) documented as of this encounter Visit Diagnoses Not on filedocumented in this encounter Care Teams Wireless Consultant Relationship Specialty Start Date End Date Elsewhere, Pcp PCP - General Family Medicine 03/10/20 11/30/21 Ervin Schroeder MD Referring Provider Family Medicine 03/24/[address] [place] [phone] documented as of this encounter
--- OUTSIDE RECORDS SUMMARY | 2021-12-28 23:32 | XMS_ITS | Encounter Summary ---
:1990 Author Organization [facility] Address [address] [place] [address] Care Team Providers Name Role Phone Elsewhere, Pcp Primary Care Provider Unavailable Reason for Visit Reason Comments Fever Encounter Details Date Type Department Care Team Description 07/06/2021 Nurse Triage Department of [facility] Arabella Rosa R.N. Fever Medicine in [place], [address] [place] [address] AKIKO CAMARENA [phone] [place] [address] Social History Tobacco Use Types Packs/Day Years [...] or relatives? How often do you attend rastafarian or Never 2021 congregation services? Do you belong to any clubs or No 07/17/2021 organizations such as rastafarian groups, unions, fraternal or athletic groups, or [...] or slept in a fdc (including now)? 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 - 07/06/2021 2:57 AM CST Chief Complaint / Reason for Call Patient is a 30 y.o. female calling regarding Fever. Assessment Concern: 100.4 fever with stage 4 liver cirrhosis diagnosis. No other new symptoms. Present for: [place] somewhat feverish over past 24 hours, but more noticeable in past 2 hours. Home cares tried: None Calling to request: Advice The recommended disposition is Information or Advice Only Call. .Transferred for [facility] specialty. Patient unable to take OTCs and is unsure of urgency of fever with medical condition. MOLDER HELPER documented in this encounter Plan of Treatment Upcoming Encounters Date Type Specialty Care Team Description 01/07/2022 Office Visit Community Internal Medicine Ranjit Red P.A.-C. 300 [facility] [place] [phone] (Wo rk) 01/12/2022 Appointment Laboratory Medicine Matthew Jerome M.B.BSumaS., MCee. [address] [place] [phone] (Wo rk) 01/12/2022 Appointment Laboratory Medicine Adeline Frazier M.D., Ph.D. [address] [place] [address] [phone] (Wo rk) 01/13/2022 Telemedicine Transplant Joel Tan L.I.C.S.W., M.S. W. [address] [place] [address] [phone] (Wo rk) 01/13/2022 Telemedicine Transplant Matthew Jerome M.B.B.S., Callie. [address] [place] [phone] (Gwendolyn rk) 01/13/2022 Telemedicine Transplant Adeline Frazier M.D., Ph.D. [address] [place] [address] [phone] (Gwendolyn rk) 01/28/2022 Office Visit Gastroenterology and Matthew Jerome, Hepatology VikB.SSuma, MCee. [address] [place] [address] [phone] (Gwendolyn rahman) Scheduled Procedures Name Priority Associated Diagnoses Date/Time ESOPHAGOGASTRODUODENOSCOPY Cirrhosis Alc oholic (HCC) Hypertension Portal (HCC) ESOPHAGOGASTRODUODENOSCOPY Cirrhosis Alc oholic (HCC) Ascites Anemia Macrocytic Thrombocytopenia (HC C) Deficiency Coagulation Acquired (HCC) documented as of this encounter Visit Diagnoses Not on filedocumented in this encounter Care Teams Pedicurist Relationship Specialty Start Date End Date Elsewhere, Pcp PCP - General Family Medicine 03/10/20 11/30/21 Ervin Schroeder MD Referring Provider Family Medicine 03/24/[address] [place] [phone] documented as of this encounter
--- OUTSIDE RECORDS SUMMARY | 2021-12-28 23:32 | XMS_ITS | Encounter Summary ---
:1990 Author Organization [facility] Address [address] [place] [address] Care Team Providers Name Role Phone Elsewhere, Pcp Primary Care Provider Unavailable Encounter Details Date Type Department Care Team Description 07/15/2021 Clinical Communication Department of Felicita Spicer Gastroenterology in [place], [place] [phone] [place] [address] ([facility]) [place] [address] Social History Tobacco Use Types Packs/Day [...] or relatives? How often do you attend zoroastrian or Never 2021 buddhism services? Do you belong to any clubs or No 07/17/2021 organizations such as zoroastrian groups, unions, fraternal or athletic groups, or [...] or slept in a jail (including now)? 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 - 07/15/2021 9:23 AM CDT Spoke with patient this morning who had concerns as to whether she needed another blood transfusion.She reports her last blood transfusion was when she was hospitalized in March 2021. She reports feeling more tired and weak lately. She wanted to ensure that Kerry was aware of her lab levels from thelabs that were completed during her ED visits 07/06-07/08 at 3 various locations. Supervisor [employer] informed her that we were aware of the labs from outside facilities and that adjusto writer operator had asked Kerry to review these outside labs last week and had not heard back regarding any recommendations. Informed her I would follow up with Kerry and get back to her. Supervisor [employer] discussed patient with Kerry Naranjo NP. Since patient is reported feeling more tired and weak lately the provider would like to repeat some labs. Provider requests patient has these completed at [facility] so that we are able to seen and be alerted of results within Epic as providerwill be out of office after tomorrow for the rest of the week. Spoke with the patient again and informed her that Kerry Naranjo had placed orders for additional labs to be drawn as soon as possible since she will be out of office and Wednesday of this week. Informed her that it is best that they are done at a [facility] so that Kerry can be alerted of results. Also inquired if patient has been taking her lactulose. She reports she takes 5 tsp three times per day and has probably 2-3 bowel movements per day. Patient also states she just got off the phone with her PCP nurse who asked her several questions and also states their office was concerned that shedid not received a blood transfusion at [facility]. Informed her that once the lab results were back Kerry would be able to best make a plan of care for her. Informed her she should keep her appointment with Kerry on Friday 07/21. documented in this encounter Plan of Treatment Upcoming Encounters Date Type Specialty Care Team Description 01/07/2022 Office Visit Community Internal Medicine Ranjit Red P.A.-C. [address] [place] [phone] (Gwendolyn rahman) 01/12/2022 Appointment Laboratory Medicine Matthew Jerome M.B.B.S., M.D. [address] [place] [phone] (Gwendolyn rahman) 01/12/2022 Appointment Laboratory Medicine Adeline Frazier M.D., Ph.D. [address] [place] [phone] (Gwendolyn rahman) 01/13/2022 Telemedicine Transplant Joel Tan L.I.C.S.W., M.S. W. [address] [place] [phone] (Gwendolyn rahman) 01/13/2022 Telemedicine Transplant Matthew Jerome M.B.B.S., M.D. [address] [place] [phone] (Gwendolyn rahman) 01/13/2022 Telemedicine Transplant Adeline Frazier M.D., Ph.D. [address] [place] [phone] (Gwendolyn rk) 01/28/2022 Office Visit Gastroenterology and Matthew Jerome Hepatology Lilian Santillan 1025 [place] [phone] (Gwendolyn rk) Scheduled Procedures Name Priority Associated Diagnoses Date/Time ESOPHAGOGASTRODUODENOSCOPY Cirrhosis Alc oholic (HCC) Hypertension Portal (HCC) ESOPHAGOGASTRODUODENOSCOPY Cirrhosis Alc oholic (HCC) Ascites Anemia Macrocytic Thrombocytopenia (HC C) Deficiency Coagulation Acquired (HCC) documented as of this encounter Results (ABNORMAL) Hepatic Function Panel (07/15/2021 10:49 AM CDT) [facility] gist Method Time Signature Bilirubin, Total, P [...] 07/15/2021 Venous) AM CDT 12:57 PM CDT Rachele Newsome APRN., R.N. LAB BLOOD ADD-ON Performing Organization Address City/State/ZIP Code Phon e Number [facility]- [address] [place] [address] [place] [address] System in [place] [address] Basic Metabolic Panel (07/15/2021 10:49 AM CDT) [...] CDT eGFR-Black/Afric >90 >=60 07/15/2021 [place] an Somali mL/min/BSA 1:52 PM CDT Comment: ----ADDITIONAL INFORMATION---- [...] 07/15/2021 Venous) AM CDT 12:57 PM CDT Destiny Newsome APRN, R.N. LAB BLOOD ADD-ON Performing Organization Address City/State/ZIP Code Phon e Number [facility]- [address] [place] [address] [facility] [place] [address] System in [place] [address] (ABNORMAL) CBC with Differential, Blood (07/15/2021 10:49 AM CDT) [facility] Method Time Signature Hemoglobin 8.2 (L) [...] 07/15/2021 Venous) AM CDT 10:49 AM CDT Rachele Newsome APRN., R.N. LAB BLOOD ADD-ON Performing Organization Address City/State/ZIP Code Phon e Number [place] [address] [place] [address] [facility] [address] [place] [address] System in [place] [address] documented in this encounter Visit Diagnoses Diagnosis Cirrhosis Alcoholic (HCC) - Primary documented in this encounter Additional Health Concerns Infection Onset Date Last Indicated Resolved Time COVID19 Pending 07/25/2021 07/25/2021 07/25/2021 10:07 PM CDT documented as of this encounter Care Teams Dynamics Ax Solution Architect Relationship Specialty Start Date End Date Elsewhere, Pcp PCP - General Family Medicine 03/10/20 11/30/21 Ervin Schroeder MD Referring Provider Family Medicine 03/24/[address] [place] [phone] documented as of this encounter
--- OUTSIDE RECORDS SUMMARY | 2021-12-28 23:32 | XMS_ITS | Encounter Summary ---
:1990 Author Organization [facility] Address [address] [place] [address] Care Team Providers Name Role Phone Elsewhere, Pcp Primary Care Provider Unavailable Encounter Details Date Type Department Care Team Description 07/06/2021 Documentation Department of Gastroenterology Myke Fish, in [place] [address] [facility] [address] [place] [address] [place], [place] [phone] Social History Tobacco Use Types Packs/Day [...] do you attend quaker or Never 2021 restorationist services? 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 - 07/06/2021 8:04 AM CST This is a late entry for an over night patient call. Patient called overnight at 3 AM as she was feeling very fatigued and she had a fever of 100.3. She denied nay nausea or vomiting or diarrhea or abdominal pain. She also reported feeling fatigued for past 2 days along with chills. Patient was instructed to be evaluated at an urgent care center or ER if the symptoms persists over next 2-3 hours. Patient again called at 8 AM in the morning stating that her fever hasn't become better and its still 100.4. She was asked to go to the nearest ER. She ealso informed that she suffers from insomnia and that she may have restless legg syndrome. She also describes that as soon as she is about to fall asleep a jolt in her body wakes her up. She was informed that, fever is concerning and she should get evaluated for this first. ARY ACQUISITIONS TECHNICIAN documented in this encounter Plan of Treatment Upcoming Encounters Date Type Specialty Care Team Description 01/07/2022 Office Visit [facility] Ranjit Red P.A.-C. [address] [place] [address] (Wo rk) 01/12/2022 Appointment Laboratory Medicine Matthew Jerome M.B.B.S., Lilian [address] [place] [phone] (Wo rk) 01/12/2022 Appointment Laboratory Medicine Adeline Frazier M.D., Ph.D. [address] [place] [phone] (Wo rk) 01/13/2022 Telemedicine Transplant Joel Tan L.I.C.S.W., M.S. W. [address] [place] [phone] (Wo rk) 01/13/2022 Telemedicine Transplant Matthew Jerome M.B.B.SSuma, MJules [address] [place] [phone] (Wo rk) 01/13/2022 Telemedicine Transplant Adeline Frazier M.D., Ph.D. [address] [place] [phone] (Wo rk) 01/28/2022 Office Visit Gastroenterology and Matthew Jerome, Hepatology FredySSuma, MJules [address] [place] [phone] (Wo rk) Scheduled Procedures Name Priority Associated Diagnoses Date/Time ESOPHAGOGASTRODUODENOSCOPY Cirrhosis Alc oholic (HCC) Hypertension Portal (HCC) ESOPHAGOGASTRODUODENOSCOPY Cirrhosis Alc oholic (HCC) Ascites Anemia Macrocytic Thrombocytopenia (HC C) Deficiency Coagulation Acquired (HCC) documented as of this encounter Visit Diagnoses Not on filedocumented in this encounter Care Teams Outpatient Scheduler Relationship Specialty Start Date End Date Elsewhere, Pcp PCP - General Family Medicine 03/10/20 11/30/21 Ervin Schroeder MD Referring Provider Family Medicine 03/24/[address] [place] [phone] documented as of this encounter
--- OUTSIDE RECORDS SUMMARY | 2021-12-28 23:32 | XMS_ITS | Encounter Summary ---
:1990 Author Organization [facility] Address [address] [place] [address] Care Team Providers Name Role Phone Elsewhere, Pcp Primary Care Provider Unavailable Reason for Visit Reason Comments Fever Fever during noc 100.4, Dr. Fish recommending eval for labs due to cirrhosis. Encounter Details Date Type Department Care Team Description 07/06/[address] [facility] Juan Dang, Fever Of Unknown Origin Martin Holloway M.D. (Primary Dx) Emergency Department [address] [place] [id number] [phone] Social History Tobacco Use Types Packs/Day Years [...] or relatives? How often do you attend latter-day or Never 2021 zoroastrian services? Do you belong to any clubs or No 07/17/2021 organizations such as latter-day groups, unions, fraQlibri or athletic groups, or school groups? How [...] or slept in a detention (including now)? Sex Assigned at Date Recorded Female 04/12/2021 7:39 PM DIRECTOR OF NEUROLOGY documented as of this encounter Last Filed Vital Signs Vital Sign Reading Time Taken Comments Blood Pressure 95/50 07/06/2021 1:30 PM DIRECTOR OF NEUROLOGY Pulse 87 07/06/2021 1:45 PM DIRECTOR OF NEUROLOGY Temperature 37.1 ??C (98.8 ??F) 07/06/2021 1:45 PM DIRECTOR OF NEUROLOGY Respiratory Rate 15 07/06/2021 1:45 PM DIRECTOR OF NEUROLOGY Oxygen Saturation 98% 07/06/2021 1:45 PM DIRECTOR OF NEUROLOGY Inhaled Oxygen Concentration - - Weight 55.1 kg (121 lb 7.6 oz) 07/06/2021 10:41 AM DIRECTOR OF NEUROLOGY Height 157.5 cm (5' 2) 07/06/2021 10:41 AM DIRECTOR OF NEUROLOGY Body Mass Index 22.22 07/06/2021 10:41 AM DIRECTOR OF NEUROLOGY documented in this encounter Discharge Instructions Discharge InstructionsJuan Dang M.D. - 07/06/2021 1:[address] PM CST As per Dr. Fish you may take Tylenol as needed for pain, please limit to less than 2,000 mg a day Return to ER if symptoms persist, worsen, or any concerns Please follow all verbal instructions given to you Please follow-up with your primary care doctor or forensic dna analyst Please read all attached documents at discharge It was a pleasure taking care of you today. We hope you feel better soon CTOR OF NEUROLOGY documented in this encounter Medications at Time [...] total) by mouth every morning before breakfast. phytonadione, vitamin K1, Take 1 tablet (5 mg 7 tablet 0 0 07/07/2021 07/14/2021 (MEPHYTON) 5 mg tablet total) by mouth daily for 7 doses. ciprofloxacin (CIPRO) 500 Take 1 tablet (500 [...] a day. documented as of this encounter ED Notes Juan Dang M.D. - 07/06/2021 12:15 PM CST SUBJECTIVE: CHIEF COMPLAINT/REASON FOR VISIT: Fever (Fever during noc 100.4, Dr. Fish recommending eval for labs due to cirrhosis.) HISTORY OF PRESENT ILLNESS: 30-year-old female patient with history of alcoholic liver cirrhosis referred to ED by forensic dna analyst for subjective fever. Patient states she felt warm, checked her temperature this august ending at 03:00, which was 100.3?? F, 2 hours later it was 100.4?? F. Denies cough, shortness of breath, abdominal pain, diarrhea, dysuria. Has bilateral leg pain History provided by: Patient Fever Max temp prior to arrival: 100.4 Temp source: Oral Severity: Moderate Onset quality: Sudden Timing: Constant Progression: Unchanged Chronicity: New Relieved by: Nothing Worsened by: Nothing Ineffective treatments: None tried REVIEW OF SYSTEMS: Constitutional: Positive for fever. HENT: Negative. Eyes: Negative. Respiratory: Negative. Cardiovascular: Negative. Gastrointestinal: Negative. Endocrine: Negative. Genitourinary: Negative. Musculoskeletal: Negative. Positive for extremity pain. Skin: Negative. Allergic/Immunologic: Negative. Neurological: Negative. Hematological: Negative. Psychiatric/Behavioral: Negative. ALLERGIES/MEDICATIONS: Reviewed in medical record PAST MEDICAL/FAMILY/SOCIAL HISTORY: Medical History: Past Medical History: Diagnosis Date ??? Cirrhosis Of Liver NOS Patient Active Problem List Diagnosis Date Noted ??? Thrombocytopenia (HCC) 07/01/2021 ??? Alcohol Use [...] History Socioeconomic History ??? Marital status: Single Tobacco Use ??? Smoking status: Current Every Day Smoker Packs/day: 0.25 Types: Cigarettes ??? Smokeless tobacco: Never Used Vaping Use ??? Vaping Use: never used Substance and Sexual Activity ??? Alcohol use: Not Currently ??? Drug use: Yes Types: Marijuana Comment: daily - medical card, plus non medical, last am Social History Substance and Sexual Activity Alcohol Use Not Currently Social History Substance and Sexual Activity Drug Use Yes ??? Types: Marijuana Comment: daily - medical card, plus non medical, last OBJECTIVE: INITIAL VITAL SIGNS: Initial Vitals Temperature Pulse Rate Heart Rate Resp Rate Blood Pressure SpO2 07/06/21 1041 07/06/21 1041 07/06/21 1045 07/06/21 1041 07/06/21 1041 07/06/21 1041 36.9 ??C 99 97 20 (!) 108/54 99 % Pain Score 07/06/21 1045 8 PHYSICAL EXAMINATION: Constitutional: Nursing note and vitals reviewed. She appears well-developed and well-nourished. HENT: Head: Normocephalic and atraumatic. Mouth/Throat: Mucous membranes are moist. Eyes: Conjunctivae and EOM are normal. Neck: Neck supple. Cardiovascular: Normal rate, regular rhythm and normal heart sounds. Pulses are strong and palpable.Capillary refill: takes less than 3 seconds, Pulmonary/Chest: Effort normal and breath sounds normal. Abdominal: Soft. Bowel sounds are normal. There is no abdominal tenderness. There is no rebound and no guarding. Musculoskeletal: General: Normal range of motion. Cervical back: Neck supple. Neurological: Alert and oriented to person, place, and time. Skin: Skin is warm and dry. Psychiatric: She has a normal mood and affect. ED COURSE: Final Diagnoses: as of 07/06/21 1320 Fever Of Unknown Origin INTERVENTIONS: Medications sodium chloride 0.9 % injection 3 mL (has no administration in time range) sodium chloride 0.9 % injection 10 mL (has no administration in time range) sodium chloride 0.9 % injection 3 mL (has no administration in time range) fentaNYL injection 50 mcg (SUBLIMAZE) (50 mcg intravenous Given 07/06/21 1132) LABS: Labs Reviewed CBC WITH DIFFERENTIAL, B - Abnormal Result Value Hemoglobin 7.3 (*) Hematocrit 22.1 (*) Erythrocytes 2.02 (*) MCV 109.4 (*) RBC Distrib Width 13.6 Platelet Count 66 (*) Leukocytes 7.7 Neutrophils 5.72 Lymphocytes 1.14 Monocytes 0.73 Eosinophils 0.08 Basophils 0.05 URINALYSIS WITH MICROSCOPIC - Abnormal Source Urine, Urine, Midstream Clarity Clear Color Priscilla Blood Negative Nitrite Negative Leukocyte Esterase Trace (*) Protein Negative Glucose Negative Ketone Negative Bilirubin Moderate (*) pH 7.0 Specific [place]rege 1.020 Urobilinogen 1.0 White Blood Cells None Seen Red Blood Cells None Seen Hyaline Casts 1-3 COMPREHENSIVE METABOLIC PANEL, S/P - Abnormal Potassium, P 4.1 Sodium, P 133 (*) Chloride, P 100 Bicarbonate, P 21 (*) Anion Gap, P 12 BUN (Blood Urea Nitrogen), P 5 (*) Creatinine, P 0.55 (*) eGFR-Black/ >90 eGFR Non-Black/ >90 Calcium, Total, P 9.2 Glucose, P 97 Protein, Total, P 5.8 (*) Albumin, P 3.5 Aspartate Aminotransferase (AST), P 71 (*) Alkaline Phosphatase, P 173 (*) Alanine Aminotransferase (ALT), P 26 Bilirubin, Total, P 7.0 (*) LACTATE, B - Abnormal Lactate, B 2.4 (*) MORPHOLOGY EVALUATION - Abnormal RBC Morphology See Specific Findings PLT Estimate Decreased (*) Acanthocytes Marked (*) Polychromasia Slight (*) SARS COV-2, INFLUENZA A/B, RSV, PCR, V Influenza A, PCR Undetected Influenza B, PCR Undetected Respiratory Syncytial Virus, PCR Undetected [id number], PCR Undetected Specimen Source Swab, Nasopharynx BACTERIA / INES CULTURE, BLOOD Narrative: Specimen Information: Specimen ID: [id number] Specimen Source: Blood, Peripheral Draw Specimen Comment: Specimen Source Site: Blood Specimen Collection Start Date: 07/06/2021 11:15 AM Specimen Received Date: 07/06/2021 11:30 AM Specimen ID: [id number] Specimen Source: Blood, Peripheral Draw Specimen Comment: Specimen Source Site: Blood Specimen Collection Start Date: 07/06/2021 11:15 AM Specimen Received Date: 07/06/2021 11:30 AM Specimen ID: [id number] Specimen Source: Blood, Peripheral Draw Specimen Comment: Specimen Source Site: Blood Specimen Collection Start Date: 07/06/2021 11:15 AM Specimen Received Date: 07/06/2021 11:30 AM BACTERIA / INES CULTURE, BLOOD Narrative: Specimen Information: Specimen ID: [id number] Specimen Source: Blood, Peripheral Draw Specimen Comment: Specimen Source Site: Blood Specimen Collection Start Date: 07/06/2021 11:27 AM Specimen Received Date: 07/06/2021 11:30 AM Specimen ID: [id number] Specimen Source: Blood, Peripheral Draw Specimen Comment: Specimen Source Site: Blood Specimen Collection Start Date: 07/06/2021 11:30 AM Specimen Received Date: 07/06/2021 11:30 AM Specimen ID: [id number] Specimen Source: Blood, Peripheral Draw Specimen Comment: Specimen Source Site: Blood Specimen Collection Start Date: 07/06/2021 11:27 AM Specimen Received Date: 07/06/2021 11:30 AM BACTERIAL CULTURE, AEROBIC + SUSC, URINE LACTATE, B ECG: RADIOLOGY: DX Chest Portable 1 View Final Result No acute radiographic abnormalities are demonstrated. ASSESSMENT AND PLAN: IMPRESSION AND PLAN 30-year-old female patient with history of alcoholic liver cirrhosis referred to ED by forensic dna analyst for subjective fever. Denies cough, shortness of breath, abdominal pain, diarrhea, dysuria. Triage vitals stable and afebrile. Nontoxic appearing, in no acute distress. Chest x-ray, urinalysis, influenza, RSV, COVID-19 negative. Abdomen is soft, nondistended, nontender to palpation. Full suspicion for SBP, however not having any source of infection, discussed diagnostic paracentesis by radiologist, which the patient declined. Appreciate GI phone consult. Dr. Fish agrees that since the ED workup is negative and patient is declining diagnostic paracentesis to rule out SBP we can discharge patient home. Suggest close follow-up with with her primary care provider or GI clinic. Return precautionsgiven I reviewed previous medical records including documentation from previous visits, radiology images/report and lab results. I personally reviewed the lab result(s) and my interpretation is abnormal but at baseline. I personally reviewed the radiology image(s) and reviewed the radiology report(s). The Radiology exam interpretation(s) is/are normal. Juan Dang M.D. 07/08/21 0041 CTOR OF NEUROLOGY documented in this encounter Plan of Treatment Upcoming Encounters Date Type Specialty Care Team Description 01/07/2022 Office Visit Community Internal Medicine Ranjit Red P.A.-C. [address] [facility] [place] [phone] (Wo rk) 01/12/2022 Appointment Laboratory Medicine Matthew Jerome M.B.B.SSuma, MJules [address] [place] [phone] (Wo rk) 01/12/2022 Appointment Laboratory Medicine Adeline Frazier M.D., Ph.D. [address] [place] [phone] (Gwendolyn rahman) 01/13/2022 Telemedicine Transplant Joel Tan L.I.C.S.W., M.S. W. [address] [place] [phone] (Gwendolyn rahman) 01/13/2022 Telemedicine Transplant Matthew Jerome M.B.BSumaSSuma, MSumaD. [address] [place] [phone] (Gwendolyn rahman) 01/13/2022 Telemedicine Transplant Adeline Frazier M.D., Ph.D. [address] [place] [phone] (Gwendolyn rahman) 01/28/2022 Office Visit Gastroenterology and Matthew Jerome, Hepatology JoshuaBSumaB.SSuma, MJules [address] [place] [phone] (Gwendolyn rk) Scheduled Procedures Name Priority Associated Diagnoses Date/Time ESOPHAGOGASTRODUODENOSCOPY Cirrhosis Alc oholic (HCC) Hypertension Portal (HCC) ESOPHAGOGASTRODUODENOSCOPY Cirrhosis Alc oholic (HCC) Ascites Anemia Macrocytic Thrombocytopenia (HC C) Deficiency Coagulation Acquired (HCC) documented as of this encounter Procedures Procedure Name Priority Date/Time Associated Comments Diagnosis BACTERIAL CULTURE, STAT 07/06/2021 11:59 Resul ts for AEROBIC + SUSC, AM DIRECTOR OF NEUROLOGY this procedu re URINE are in the results section. URINALYSIS WITH STAT 07/06/2021 11:54 Results for MICROSCOPIC AM DIRECTOR OF NEUROLOGY this procedure are in the results section. BACTERIA / INES STAT 07/06/2021 11:27 Resul ts for CULTURE, BLOOD AM DIRECTOR OF NEUROLOGY this procedur e are in the results section. LACTATE, B STAT 07/06/2021 11:21 Results for AM DIRECTOR OF NEUROLOGY this procedure are in the results section. MORPHOLOGY STAT 07/06/2021 11:21 Results for EVALUATION AM DIRECTOR OF NEUROLOGY this procedure are in the results section. CBC WITH STAT 07/06/2021 11:21 Results for DIFFERENTIAL, B AM DIRECTOR OF NEUROLOGY this procedu re are in the results section. COMPREHENSIVE STAT 07/06/2021 11:21 Results fo r METABOLIC PANEL, S/P AM DIRECTOR OF NEUROLOGY this pr ocedure are in the results section. BACTERIA / INES STAT 07/06/2021 11:15 Resul ts for CULTURE, BLOOD AM DIRECTOR OF NEUROLOGY this procedur e are in the results section. DX CHEST PORTABLE 1 RAD - Semiurgent 07/06/2021 10:58 Results for VIEW (Fast; most ED AM DIRECTOR OF NEUROLOGY this procedur e patients; some are in the inpatients) results section. SARS COV-2,INFLUENZA STAT 07/06/2021 10:51 Res ults for A/B,RSV,PCR, V AM DIRECTOR OF NEUROLOGY this procedur e are in the results section. documented in this encounter Results Bacterial Culture, Aerobic + Susc, Urine (07/06/2021 11:59 AM DIRECTOR OF NEUROLOGY) [facility] Method Time Signature Urine Culture No growth 07/07/2021 MK after 1 day 11:49 AM DIRECTOR OF NEUROLOGY of incubation. Specimen Anatomical Collection Method Collection Time Receive d Time (Source) Location / / Volume Laterality Urine (Urine, 07/06/2021 11:59 07/06/2021 Midstream) AM DIRECTOR OF NEUROLOGY 11:59 AM DIRECTOR OF NEUROLOGY Comment: Specimen Source Site: Urine Juan Dang M.D. LAB MICROBIOLOGY - GENERAL O RDERABLES Performing Organization Address City/State/ZIP Code Phon e Number [facility] [address] [place] [address] [place] [address] [address] (ABNORMAL) Urinalysis with Microscopic: Urine, Midstream (07/06/2021 11:54 AM DIRECTOR OF NEUROLOGY) Analysis Performed At [facility] Time Signature Source Urine, Urine, 07/06/2021 MK[facility] Midstream 12:04 PM DIRECTOR OF NEUROLOGY Clarity Clear Clear 07/06/2021 [facility] 12:04 PM DIRECTOR OF NEUROLOGY Color Priscilla 07/06/2021 MKTO 12:04 PM DIRECTOR OF NEUROLOGY Comment: ----REFERENCE VALUE---- Colorless Yellow Priscilla Blood Negative Negative 07/06/2021 12:04 PM DIRECTOR OF NEUROLOGY MK[facility] Nitrite Negative Negative 07/06/2021 12:04 PM DIRECTOR OF NEUROLOGY [facility] Leukocyte Esterase Trace (A) Negative 07/06/2021 12:[address] [facility] Protein Negative mg/dL 07/06/2021 12:04 PM DIRECTOR OF NEUROLOGY [facility] Comment: ----REFERENCE VALUE---- Negative Trace Glucose Negative Negative mg/dL 07/06/2021 12:04 PM DIRECTOR OF NEUROLOGY M KTO Ketone Negative Negative mg/dL 07/06/2021 12:04 PM DIRECTOR OF NEUROLOGY M KTO Bilirubin Moderate (A) Negative 07/06/2021 12:04 PM DIRECTOR OF NEUROLOGY MKT O pH 7.0 5.0 - 8.0 07/06/2021 12:04 PM DIRECTOR OF NEUROLOGY [facility] Specific [place] 1.020 1.001 - 1.035 07/06/2021 12:04 PM DIRECTOR OF NEUROLOGY [facility] Urobilinogen 1.0 0.2 - 1.0 mg/dL 07/06/2021 12:[address] [facility] White Blood Cells None Seen /hpf 07/06/2021 12:08 PM CS T [facility] Comment: ----REFERENCE VALUE---- Males: 0-3 Females: 0-10 Unknown: 0-10 Red Blood Cells None Seen 0 - 2 /hpf 07/06/2021 12:08 PM DIRECTOR OF NEUROLOGY [facility] Hyaline Casts 1-3 /lpf 07/06/2021 12:08 PM DIRECTOR OF NEUROLOGY MK TO Specimen Anatomical Collection Method Collection Time Receive d Time (Source) Location / / Volume Laterality Urine (Urine, 07/06/2021 11:54 07/06/2021 Midstream) AM DIRECTOR OF NEUROLOGY 11:59 AM DIRECTOR OF NEUROLOGY Juan Dang M.D. LAB URINE ORDERABLES Performing Organization Address City/[facility]/ZIP [facility] Phon e Number [facility]- [address] [place] [phone] [place] [address] [address] Bacteria / Ines Culture, Blood #2 (07/06/2021 11:27 AM DIRECTOR OF NEUROLOGY) [facility] Method Time Signature Bacteria/Adriana No growth 07/11/2021 MKTO da Culture, after 5 12:05 PM DIRECTOR OF NEUROLOGY Blood day/s of incubation. Specimen (Source) Anatomical Collection Method Collection Time Re ceived Time Location / / Volume Laterality Blood (Blood, 07/06/2021 11:27 07/06/2021 Peripheral Draw) AM DIRECTOR OF NEUROLOGY 11:30 AM CS T Comment: Specimen Source Site: Blood Juan Dang M.D. LAB MICROBIOLOGY - GENERAL O RDERABLES Performing Organization Address [facility] Phon e Number [facility]- [address] [place] [phone] [place] [address] System [address] (ABNORMAL) Morphology Evaluation (07/06/2021 11:21 AM DIRECTOR OF NEUROLOGY) [facility] Method Time Signature RBC Morphology See Specific 07/06/2021 MKTO Findings 12:08 PM DIRECTOR OF NEUROLOGY PLT Estimate Decreased (A) Adequate 07/06/2021 MKTO 12:08 PM DIRECTOR OF NEUROLOGY Acanthocytes Marked (A) 07/06/2021 MKTO 12:08 PM DIRECTOR OF NEUROLOGY Polychromasia Slight (A) Not Seen 07/06/2021 MKTO 12:08 PM DIRECTOR OF NEUROLOGY Specimen Anatomical Collection Method Collection Time Receive d Time (Source) Location / / Volume Laterality Blood 07/06/2021 11:21 07/06/2021 AM DIRECTOR OF NEUROLOGY 11:30 AM DIRECTOR OF NEUROLOGY Juan Dang M.D. LAB BLOOD ADD-ON Performing Organization Address City/[facility] Phon e Number [facility]- [address] [place] [phone] [place] [address] System [address] (ABNORMAL) Lactate, B (07/06/2021 11:21 AM DIRECTOR OF NEUROLOGY) P athologist Signature Lactate, B 2.4 (H) 0.5 - 2.2 07/06/2021 MKTO mmol/L 11:33 AM DIRECTOR OF NEUROLOGY Specimen Anatomical Collection Method Collection Time Receive d Time (Source) Location / / Volume Laterality Blood 07/06/2021 11:21 07/06/2021 AM DIRECTOR OF NEUROLOGY 11:30 AM DIRECTOR OF NEUROLOGY Juan Dang M.D. LAB BLOOD NON ADD-ON Performing Organization Address City/State/ZIP Code Phon e Number [facility]- [address] [place] [phone] [place] [address] [place] [address] System in [place] [address] [place] [address] (ABNORMAL) Comprehensive Metabolic Panel (07/06/2021 11:21 AM DIRECTOR OF NEUROLOGY) Analysis Performed At Patho logist Time Signature Potassium, P 4.1 3.6 - 5.2 07/06/2021 MKTO mmol/L 11:55 AM DIRECTOR OF NEUROLOGY Sodium, P 133 (L) 135 - 145 07/06/2021 MK[facility] mmol/L 11:55 AM DIRECTOR OF NEUROLOGY Chloride, P 100 98 - 107 07/06/2021 MKTO mmol/L 11:55 AM DIRECTOR OF NEUROLOGY Bicarbonate, P 21 (L) 22 - 29 07/06/2021 MKTO mmol/L 11:55 AM DIRECTOR OF NEUROLOGY Anion Gap, P 12 7 - 15 07/06/2021 MKTO 11:55 AM DIRECTOR OF NEUROLOGY BUN (Blood Urea 5 (L) 6 - 21 07/06/2021 MKTO Nitrogen), P mg/dL 11:55 AM DIRECTOR OF NEUROLOGY Creatinine 0.55 (L) 0.59 - 07/06/2021 MKTO 1.04 mg/dL 11:55 AM DIRECTOR OF NEUROLOGY eGFR-Black/Afri >90 >=60 07/06/2021 MKTO can Senegalese mL/min/BSA 11:55 AM DIRECTOR OF NEUROLOGY Comment: ----ADDITIONAL INFORMATION---- Estimated GFR calculated using the 2009 CKD_EPI creatinine equation. eGFR Non-Black/ >90 >=60 mL/min/BSA 07/06/2021 11:55 AM DIRECTOR OF NEUROLOGY MKTO Comment: ----ADDITIONAL INFORMATION---- Estimated GFR calculated using the 2009 CKD_EPI creatinine equation. Calcium, Total, P 9.2 8.6 - 10.0 mg/dL 07/06/2021 11:5 5 AM MKTO DIRECTOR OF NEUROLOGY Glucose, P 97 70 - 140 mg/dL 07/06/2021 11:55 AM MKTO DIRECTOR OF NEUROLOGY Protein, Total, P 5.8 (L) 6.3 - 7.9 g/dL 07/06/2021 11:55 AM MKTO DIRECTOR OF NEUROLOGY Albumin, P 3.5 3.5 - 5.0 g/dL 07/06/2021 11:55 AM MKTO DIRECTOR OF NEUROLOGY Aspartate Aminotransferase 71 (H) 8 - 43 U/L 07/06/2021 1 1:55 AM MKTO (AST), P DIRECTOR OF NEUROLOGY Alkaline Phosphatase, P 173 (H) 35 - 104 U/L 07/06/2021 11 :55 AM MKTO DIRECTOR OF NEUROLOGY Alanine Aminotransferase 26 7 - 45 U/L 07/06/2021 11: 55 AM MKTO (ALT), P DIRECTOR OF NEUROLOGY Bilirubin, Total, P 7.0 (H) <=1.2 mg/dL 07/06/2021 11:55 A M MKTO DIRECTOR OF NEUROLOGY Specimen Anatomical Collection Method Collection Time Receive d Time (Source) Location / / Volume Laterality Blood (Blood, 07/06/2021 11:21 07/06/2021 Venous) AM DIRECTOR OF NEUROLOGY 11:30 AM DIRECTOR OF NEUROLOGY Juan Dang M.D. LAB BLOOD ADD-ON Performing Organization Address City/State/ZIP Code Phon e Number [facility]- [address] [place] [address] [place] [address] [address] (ABNORMAL) CBC with Differential, Blood (07/06/2021 11:21 AM DIRECTOR OF NEUROLOGY) [facility] Method Time Signature Hemoglobin 7.3 (L) 11.6 - 07/06/2021 MKTO 15.0 g/dL 12:08 PM DIRECTOR OF NEUROLOGY Hematocrit 22.1 (L) 35.5 - 07/06/2021 MKTO 44.9 % 12:08 PM DIRECTOR OF NEUROLOGY Erythrocytes 2.02 (L) 3.92 - 07/06/2021 MKTO 5.13 12:08 PM DIRECTOR OF NEUROLOGY x10(12)/L MCV 109.4 (H) 78.2 - 07/06/2021 MKTO 97.9 fL 12:08 PM DIRECTOR OF NEUROLOGY RBC Distrib Width 13.6 12.2 - 07/06/2021 MKTO 16.1 % 12:08 PM DIRECTOR OF NEUROLOGY Platelet Count 66 (L) 157 - 371 07/06/2021 MKTO x10(9)/L 12:08 PM DIRECTOR OF NEUROLOGY Leukocytes 7.7 3.4 - 9.6 07/06/2021 MKTO x10(9)/L 12:08 PM DIRECTOR OF NEUROLOGY Neutrophils 5.72 1.56 - 07/06/2021 MKTO 6.45 12:08 PM DIRECTOR OF NEUROLOGY x10(9)/L Lymphocytes 1.14 0.95 - 07/06/2021 MKTO 3.07 12:08 PM DIRECTOR OF NEUROLOGY x10(9)/L Monocytes 0.73 0.26 - 07/06/2021 MKTO 0.81 12:08 PM DIRECTOR OF NEUROLOGY x10(9)/L Eosinophils 0.08 0.03 - 07/06/2021 MKTO 0.48 12:08 PM DIRECTOR OF NEUROLOGY x10(9)/L Basophils 0.05 0.01 - 07/06/2021 MKTO 0.08 12:08 PM DIRECTOR OF NEUROLOGY x10(9)/L Specimen Anatomical Collection Method Collection Time Receive d Time (Source) Location / / Volume Laterality Blood (Blood, 07/06/2021 11:21 07/06/2021 Venous) AM DIRECTOR OF NEUROLOGY 11:30 AM DIRECTOR OF NEUROLOGY Juan Dang M.D. LAB BLOOD ADD-ON Performing Organization Address City/[facility] Phon e Number [facility]- [address] [place] [address] [place] [address] [address] Bacteria / Ines Culture, Blood #1 (07/06/2021 11:15 AM DIRECTOR OF NEUROLOGY) [facility] gist Method Time Signature Bacteria/Adriana No growth 07/11/2021 MKTO da Culture, after 5 12:05 PM DIRECTOR OF NEUROLOGY Blood day/s of incubation. Specimen (Source) Anatomical Collection Method Collection Time Re ceived Time Location / / Volume Laterality Blood (Blood, 07/06/2021 11:15 07/06/2021 Peripheral Draw) AM DIRECTOR OF NEUROLOGY 11:30 AM CS T Comment: Specimen Source Site: Blood Juan Dang M.D. LAB MICROBIOLOGY - GENERAL O RDERABLES Performing Organization Address City/State/ZIP Code Phon e Number [facility]- [address] [place] [address] [place] [address] System in [place] [address] [facility] DX Chest Portable 1 View (07/06/2021 10:58 AM DIRECTOR OF NEUROLOGY) Anatomical Region Laterality Modality Chest, Thoracic RST LOS, Thoracic ARZ LOS, Thoracic N/A Digital Radiography FLA LOS Specimen (Source) Anatomical Collection Method Collection Time Re ceived Time Location / / Volume Laterality 07/06/2021 11:00 AM DIRECTOR OF NEUROLOGY Impressions 07/06/2021 11:07 AM DIRECTOR OF NEUROLOGY No acute radiographic abnormalities are demonstrated. Narrative 07/06/2021 11:07 AM DIRECTOR OF NEUROLOGY EXAM: DX CHEST PORTABLE 1 VIEW COMPARISON: 03/14/2021 FINDINGS: The heart and mediastinum are unremarkable. The lungs are clear. Some fullness at the azygos venous complex region is seen thi s may simply be due to portable technique. Procedure Note Silvestre Lovell M.D. - 07/06/2021Forma tting of this note might be different from the original. EXAM: DX CHEST PORTABLE 1 VIEW COMPARISON: 03/14/2021 FINDINGS: The heart and mediastinum are unremarkable. The lungs are clear. Some fullness at the azygos venous complex region is seen thi s may simply be due to portable technique. IMPRESSION: No acute radiographic abnormalities are demonstrated. Juan Dang M.D. IMTristan DIAGNOSTIC IMAGING PROCE DURES SARS CoV-2, Influenza A/B, RSV, PCR Symptomatic (07/06/2021 10:51 AM DIRECTOR OF NEUROLOGY) [facility] Method Time Signature Influenza A, Undetected Undetected 07/06/2021 MKTO PCR 11:34 AM DIRECTOR OF NEUROLOGY Comment: Influenza A viral RNA absent. Influenza B, PCR Undetected Undetected 07/06/2021 11:[address] MKTO Comment: Influenza B viral RNA absent. Respiratory Syncytial Virus, Undetected Undetected 022 11:34 AM DIRECTOR OF NEUROLOGY MKTO PCR Comment: RSV RNA absent. EPFM-Imwzryotvtr-1, PCR Undetected Undetected 07/06/2021 11: 34 AM DIRECTOR OF NEUROLOGY MKTO Comment: SARS-CoV-2 RNA absent. ?? ----ADDITIONAL INFORMATION---- This RT-PCR test using the Xpert XpStepsss SARS-CoV-2/Flu/RSV assay ([employer] performed on the [facility] rt DX systems has received Emergency Use Authorization (EU A) by the U.S. Food and Drug Administration. Performanc e characteristics were verified by [facility] inic in a manner consistent with CLIA requirements . Fact sheets for this Emergency Use Autho rization (EUA) assay can be found at the following link s: For Healthcare Providers: https://www.fda.gov/media/055425/downloa d For Patients: https://www.fda.gov/media/957113/downloa d Specimen Source Swab, Nasopharynx 07/06/2021 10:55 AM DIRECTOR OF NEUROLOGY MKTO Specimen Anatomical Collection Method Collection Time Receive d Time (Source) Location / / Volume Laterality Varies 07/06/2021 10:51 07/06/2021 (Nasopharynx) AM DIRECTOR OF NEUROLOGY 10:55 AM DIRECTOR OF NEUROLOGY Juan Dang M.D. LAB MICROBIOLOGY - GENERAL O RDERABLES Performing Organization Address City/State/[facility] Code Phon e Number [facility]- [address] [place] [address] [place] [address] System [address] documented in this encounter Visit Diagnoses Diagnosis Fever Of Unknown Origin - Primary documented in this encounter Administered Medications Inactive Administered Medications - up to 3 most recent administrations Medication Order MAR Action Action Date Dose Rate Site fentaNYL injection 50 mcg Given 07/06/2021 11:32 AM DIRECTOR OF NEUROLOGY 50 mcg (SUBLIMAZE) 50 mcg, intravenous, Once, On [place] 07/06/21 at 1110, For 1 dose sodium chloride 0.9 % injection 10 mL 10 mL, intravenous, As needed, line care, Starting on [place] 07/06/21 at 1044, Peripheral Intravenous Catheter and Rapid Infusion Cat heter, prior to blood sampling, post blood transfusion or post blood samplin g sodium chloride 0.9 % injection 3 mL 3 mL, intravenous, As needed, line care, Starting on [place] 07/06/21 at 1044, Prior to and following infusion and between multi ple consecutive infusions: sodium chloride 0.9 % injection sodium chloride 0.9 % injection 3 mL 3 mL, intravenous, Every 12 hours scheduled, First dos e on [place] 07/06/21 at 2100, Peripheral Intravenous Catheter and Rapi d Infusion Catheter, when no infusion to maintain patency documented in this encounter Active and Recently Administered Medications Times are shown in DIRECTOR OF NEUROLOGY. Scheduled Medication Order 07/04/2021 07/05/2021 07/06/2021 fentaNYL injection 50 mcg (SUBLIMAZE) (COMPLETED) 1132 (Given - Provider: Roseline Solorzano R.N.) 50 mcg, intravenous, Once, On [place] 07/06/21 at 1110, For 1 dose sodium chloride 0.9 % injection 3 mL 3 mL, intravenous, Every 12 hours schedu led, First dose on [place] 07/06/21 at 2100, Peripheral Intravenous Catheter and Rapid Infusion Catheter, when no infusion to maintain patency PRN Medication Order 07/04/2021 07/05/2021 07/06/2021 sodium chloride 0.9 % injection 10 mL 10 mL, intravenous, As needed, line care , Starting on [place] 07/06/21 at 1044, Peripheral Intravenous Catheter and Rapid Infusion Catheter, prior to blood sampling, post blood transfusion or post blood sampling sodium chloride 0.9 % injection 3 mL 3 mL, intravenous, As needed, line care, Starting on [place] 07/06/21 at 1044, Prior to and following infusion and between multiple consecutive infusions: sodium chloride 0.9 % injection documented in this encounter Additional Health Concerns Infection Onset Date Last Indicated Resolved Time COVID19 Pending 07/06/2021 07/06/2021 07/06/2021 11:34 AM DIRECTOR OF NEUROLOGY documented as of this encounter Care Teams Oral Surgery Assistant Relationship Specialty Start Date End Date Elsewhere, Pcp PCP - General Family Medicine 03/10/20 11/30/21 Ervin Schroeder MD Referring Provider Family Medicine 03/24/[address] [place] [phone] documented as of this encounter
--- OUTSIDE RECORDS SUMMARY | 2021-12-28 23:32 | XMS_ITS | Encounter Summary ---
:1990 Author Organization [facility] Address [address] [place] [address] Care Team Providers Name Role Phone Elsewhere, Pcp Primary Care Provider Unavailable Reason for Referral Appointment Request (Routine) - Closed Specialty Diagnoses / Procedures Referred By Contact Refer red To Contact Diagnoses Cirrhosis Alcoholic (HCC) Ascites Anemia Macrocytic Thrombocytopenia (HCC) Deficiency Coagulation Acquired (HCC) Kerry Naranjo APRN, Procedures Prothrombin Time (PT) M.S.N., R.N. [address] [place] [phone] Referral ID Status Reason Start Date Expiration Date Visits Requ ested Visits Authorized [id number] Closed 07/07/2021 07/07/2022 1 ISSIONS SPECIALIST Encounter Details Date Type Department Care Team Description 07/04/2021 Clinical Communication Department of Felicita Spicer Gastroenterology in E, L.P.NSuma [place], [place] [phone] [place] [phone] Social History Tobacco Use Types Packs/Day [...] do you attend sikh or Never 2021 religion services? Do you belong to any clubs [...] or slept in a mcc (including now)? Sex Assigned at Date Recorded Female 04/12/2021 7:39 PM COMMISSIONS SPECIALIST documented as of this encounter Miscellaneous Notes Telephone Encounter - Felicita Spicer L.PSumaN. - 2021 11:19 AM COMMISSIONS SPECIALIST As stated below by Kerry Naranjo, the following is the plan for this patient and upcoming EGD. I have ordered Vitamin K 5 mg X 7 days, to take orally. Then follow up by repeat PT/INR on the 8th day. Please call pt and ask to get the lab at [facility] in [place]; this allows access to results. Past attempts to get lab work from outside PCP has failed. ?? She should start to take the Vitamin K 10 days prior to the r/s EGD. Please reach out and help to get PT lab scheduled. For a procedure date of 09/01/21, patient should begin taking vitamin K on August 22, 2021 for a total of 7 days and her lab should be drawn on the 8th day (08/28/21). Patient previously verbalized it was okay to leave detailed message. Physiatrist called to again discuss plan with patient and left a detailed message as outlined above. Informed her to expect a call from scheduling to set up the lab appointment. ISSIONS SPECIALIST Telephone Encounter - Felicita Spicer L.P.N. - 07/08/2021 1:23 PM CST Spoke with the patient and informed her that Kerry felt it was appropriate for the EGD to be done in August. Also discussed that if she would be admitted to the hospital she would not be able to have her video visit while inpatient somewhere else. Patient did state that it is looking like she will be discharged from the ED later today. She had no further questions at this time. ISSIONS SPECIALIST Telephone Encounter - Kerry Naranjo APRN, C.NDayne, M.S.N. - 07/08/2021 12:53 PM CST Her upper GI endoscopy is screening for the presence of varices. This is non urgent at this time as to the best of my knowledge she is not currently having any GI bleeding related to the presence of varices. August 12 would be okay Kerry Naranjo APRN, Katrin.N.P., M.S.N. ISSIONS SPECIALIST Telephone Encounter - Mihaela Dudley - 07/08/2021 12:45 PM CST Pt called to schedule that EGD. First Available that we have is August 12 with Mac brandon. Pt claims this is not soon enough. Please advise. If pt is currently in another hospital do we know when she will be released? Please advise on time frame for EGD. Pt is also scheduled for an appt on 07-21 via video but if patient is still hospitalized we will not be able to do this video visit with Kerry. She stated that that appt with Kerry is to answer all her questions before the procedure. ISSIONS SPECIALIST Telephone Encounter - Felicita Spicer L.P.N. - 07/08/2021 10:16 AM COMMISSIONS SPECIALIST Patient returned call and it was discussed with her the plan for vitamin K use prior to next EGD. Informed her that once she is scheduled for EGD she would begin the vitamin K 10 days prior, taking fora total of 7 days and then re- checking PT/INR day 8. She verbalized understanding of those instructions. She did also report that she is currently at [facility] and inquired if [facility] had beds available. Informed her that I am unaware of hospital bed availability. She had no further questions at this time. ISSIONS SPECIALIST Telephone Encounter - Felicita Spicer L.P.N. - 07/07/2021 2:18 PM CST Attempted to reach patient to discuss recommendations, she did not answer and a brief message requesting a call back was left for the patient. Called and spoke with pharmacist and informed them that the patient should take this medication starting 10 days prior to her EGD. They will add this to the sig and profile this Rx and patient can pickup closer to procedure date. ISSIONS SPECIALIST Telephone Encounter - Kerry Naranjo APRN C.N.P., M.S.N. - 07/07/2021 1:43 PM CST I have ordered Vitamin K 5 mg X 7 days, to take orally. Then follow up by repeat PT/INR on the 8th day. Please call pt and ask to get the lab at [facility] in [place]; this allows access to results. Past attempts to get lab work from outside PCP has failed. She should start to take the Vitamin K 10 days prior to the r/s EGD. I have also ordered the EGD/MAC, however the last EGD should of been put back in the que and not cancelled. Thank you, Kerry ISSIONS SPECIALIST Telephone Encounter - Felicita Spicer L.P.N. - 07/04/2021 9:00 AM CST Physiatrist received a call this morning from endoscopy charge nurse stating the patient had called a fewtimes this morning inquiring about the plan as her EGD on Wednesday was postponed due to her INR level. Upon chart review their is a note from endoscopist Dr. Fish that states a trial of vitamin K could be considered to see if this helps to lower her INR prior to procedure. Upon chart review a new order for EGD has not yet been entered and there are no orders for trial of vitamin K prior to next procedure or parameters for vitamin K therapy. Patient states that she would like to have her next procedure also scheduled with Dr. Fish if possible. She also inquired if the follow up scheduled currently for 07/21 with Kerry is needed as this was meant to be a post procedure appointment. After speak with the patient she does have several questions, residential mortgage underwriter informed her it may not be a bad idea to keep theappointment even if she has not had the EGD as this will allow her to ask her questions and get some answers. Physiatrist informed the patient that I would follow up regarding the plan moving forward as I see recommendations documented in the chart, however I do not see any specific orders. Informed her that Kerry is out of office today and should be back on Wednesday. ISSIONS SPECIALIST documented in this encounter Plan of Treatment Upcoming Encounters Date Type Specialty Care Team Description 01/07/2022 Office Visit Community Internal Medicine Ranjit Red P.A.-C. [address] [facility] [place] [address] (Wo rk) 01/12/2022 Appointment Laboratory Medicine Matthew Jerome M.B.B.SSuma, Lilian [address] [place] [phone] (Wo rk) 01/12/2022 Appointment Laboratory Medicine Adeline Frazier M.D., Ph.D. [address] [place] [phone] (Wo rk) 01/13/2022 Telemedicine Transplant Joel Tan L.I.C.S.W., M.S. W. [address] [place] [phone] (Wo rk) 01/13/2022 Telemedicine Transplant Matthew Jerome M.B.B.S., M.D. [address] [place] [phone] (Wo rk) 01/13/2022 Telemedicine Transplant Adeline Frazier M.D., Ph.D. [address] [place] [phone] (Wo rk) 01/28/2022 Office Visit Gastroenterology and Matthew Jerome, Hepatology FredySSuma, MJules [address] [place] [phone] (Wo rk) Scheduled Procedures Name Priority Associated Diagnoses Date/Time ESOPHAGOGASTRODUODENOSCOPY Cirrhosis Alc oholic (HCC) Hypertension Portal (HCC) ESOPHAGOGASTRODUODENOSCOPY Cirrhosis Alc oholic (HCC) Ascites Anemia Macrocytic Thrombocytopenia (HC C) Deficiency Coagulation Acquired (HCC) documented as of this encounter Results (ABNORMAL) Prothrombin Time (PT) (08/28/2021 5:01 PM CDT) [facility] Method Time Signature Prothrombin 25.9 (H) 9.4 [...] Laterality Blood (Blood, 08/28/2021 5:01 PM 08/29/19 6:01 Venous) CDT PM CDT Kerry Naranjo APRN, M.S.N., R.N. LAB BLOOD ADD-ON Performing Organization Address City/State/ZIP Code Phon e Number [facility] [address] [place] [address] [facility] [place] [address] System in [place] [address] documented in this encounter Visit Diagnoses Diagnosis Cirrhosis Alcoholic (HCC) - Primary Ascites Anemia Macrocytic Thrombocytopenia (HCC) Deficiency Coagulation Acquired (HCC) documented in this encounter Additional Health Concerns Infection Onset Date Last Indicated Resolved Time COVID19 Pending 07/06/2021 07/06/2021 07/06/2021 11:34 AM COMMISSIONS SPECIALIST COVID19 Pending 07/25/2021 07/25/2021 07/25/2021 10:07 PM CDT documented as of this encounter Care Teams Field Trainer Relationship Specialty Start Date End Date Elsewhere, Pcp PCP - General Family Medicine 03/10/20 11/30/21 Ervin Schroeder MD Referring Provider Family Medicine 03/24/211979 [address], [place] [address] documented as of this encounter
--- OUTSIDE RECORDS SUMMARY | 2021-12-28 23:32 | XMS_ITS | Encounter Summary ---
:1990 Author Organization [facility] Address [address] [place] [address] Care Team Providers Name Role Phone Elsewhere, Pcp Primary Care Provider Unavailable Reason for Visit Reason Comments Epistaxis (Nose Bleed) Encounter Details Date Type Department Care Team Description 07/25/2021 Nurse Triage Department of Joshua Resendiz istaxis (Nose Medicine, [facility], RSumaNSuma Bleed) [facility], in [facility] [place] [address] [place] [phone] Social History Tobacco Use Types Packs/Day Years [...] do you attend temple or Never 2021 presybeterian services? 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 - 07/25/2021 3:08 AM CDT Chief Complaint / Reason for Call Patient is a 31 y.o. female calling regarding Epistaxis (Nose Bleed). Assessment Concern: Random nose bleeding tonight, about 5-6 nosebleeds, lasting seconds to one hour. Nose is not bleeding at this time. Present for: tonight Home cares tried: Pressure, has helped. Calling to request: Asking if this could be related to liver disease. Asking to make an appointment. The recommended disposition is See a health care provider within 24 hours. She will call in the morning when scheduling is available. Care Advice Patient/Caregiver understands and will follow care advice?: Yes, able to teach back SEE PCP WITHIN 24 HOURS: * IF OFFICE WILL BE OPEN: You need to be examined within the next 24 hours. Call your doctor (or DUTY MANAGER/PA) when the office opens and make an [...] manage the patient. CALL BACK IF: * Nosebleeding lasts longer than 30 minutes with using direct pressure * Lightheadedness or weakness occurs * Nosebleeds become worse * You become worse. Reason for Disposition ??? [1] Bleeding recurs 3 or more times in 24 hours AND [2] direct pressure applied correctly Protocols used: [id number] documented in this encounter Plan of Treatment Upcoming Encounters Date Type Specialty Care Team Description 01/07/2022 Office Visit Community Internal Medicine Ranjit Red P.A.-C. [address] [place] [phone] (Gwendolyn rahman) 01/12/2022 Appointment Laboratory Medicine Matthew Jerome M.B.BSumaS., M.D. [address] [place] [phone] (Gwendolyn rahman) 01/12/2022 Appointment Laboratory Medicine Adeline Frazier M.D., Ph.D. [address] [place] [phone] (Gwendolyn rahman) 01/13/2022 Telemedicine Transplant Joel Tan L.I.C.S.W., M.S. W. [address] [place] [phone] (Gwendolyn rahman) 01/13/2022 Telemedicine Transplant Matthew Jerome M.B.B.S., Callie. [address] [place] [phone] (Gwendolyn rk) 01/13/2022 Telemedicine Transplant Adeline Frazier M.D., Ph.D. [address] [place] [phone] (Wo rk) 01/28/2022 Office Visit Gastroenterology and Matthew Jerome, Hepatology Tyrell, Lilian [address] [place] [phone] (Gwendolyn rk) Scheduled Procedures Name Priority Associated Diagnoses Date/Time ESOPHAGOGASTRODUODENOSCOPY Cirrhosis Alc oholic (HCC) Hypertension Portal (HCC) ESOPHAGOGASTRODUODENOSCOPY Cirrhosis Alc oholic (HCC) Ascites Anemia Macrocytic Thrombocytopenia (HC C) Deficiency Coagulation Acquired (HCC) documented as of this encounter Visit Diagnoses Not on filedocumented in this encounter Care Teams Balance Engineer Relationship Specialty Start Date End Date Elsewhere, Pcp PCP - General Family Medicine 03/10/20 11/30/21 Ervin Schroeder MD Referring Provider Family Medicine 03/24/[address] [place] [phone] documented as of this encounter
--- OUTSIDE RECORDS SUMMARY | 2021-12-28 23:32 | XMS_ITS | Encounter Summary ---
:1990 Author Organization [facility] Address [address] [place] [address] Care Team Providers Name Role Phone Elsewhere, Pcp Primary Care Provider Unavailable Encounter Details Date Type Department Care Team Description 07/23/2021 Orders Only Pharmacy Prior Auth Maye Clements [phone] Social History Tobacco Use Types Packs/Day Years [...] or relatives? How often do you attend jew or Never 2021 quaker services? 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 [address] [place] [address] (Gwendolyn rahman) 01/12/2022 Appointment Laboratory Medicine Matthew Jerome M.B.BSumaSSuma, M.D. [address] [place] [phone] (Gwendolyn rahman) 01/12/2022 Appointment Laboratory Medicine Adeline Frazier M.D., Ph.D. [address] [place] [phone] (Gwendolyn rahman) 01/13/2022 Telemedicine Transplant Joel Tan L.I.C.S.W., M.S. W. [address] [place] [phone] (Gwendolyn rahman) 01/13/2022 Telemedicine Transplant Matthew Jerome M.B.B.S., M.Slick. [address] [place] [phone] (Gwendolyn rk) 01/13/2022 Telemedicine Transplant Adeline Frazier M.D., Ph.D. [address] [place] [phone] (Gwendolyn rk) 01/28/2022 Office Visit Gastroenterology and Matthew Jerome, Hepatology Tyrell, MCee. [address] [place] [phone] (Gwendolyn rahman) Scheduled Procedures Name Priority Associated Diagnoses Date/Time ESOPHAGOGASTRODUODENOSCOPY Cirrhosis Alc oholic (HCC) Hypertension Portal (HCC) ESOPHAGOGASTRODUODENOSCOPY Cirrhosis Alc oholic (HCC) Ascites Anemia Macrocytic Thrombocytopenia (HC C) Deficiency Coagulation Acquired (HCC) documented as of this encounter Visit Diagnoses Not on filedocumented in this encounter Care Teams Awning Maker And Installer Relationship Specialty Start Date End Date Elsewhere, Pcp PCP - General Family Medicine 03/10/20 11/30/21 Ervin Schroeder MD Referring Provider Family Medicine 03/24/[address] [place] [phone] documented as of this encounter
--- OUTSIDE RECORDS SUMMARY | 2021-12-28 23:32 | XMS_ITS | Encounter Summary ---
:1990 [facility] Address [address] [place] [address] Care Team Providers Name Role Phone Elsewhere, Pcp Primary Care Provider Unavailable Encounter Details Date Type Department Care Team Description 06/30/2021 Clinical Communication Department of Kerry Naranjo Gastroenterology in [place], [place] M.S.N., R.N. 1025 [facility] 1025 [place] [address] [place], [place] [phone] Social History Tobacco Use Types Packs/Day [...] or relatives? How often do you attend religion or Never 2021 cheondoism services? Do you belong to any clubs or No 07/17/2021 organizations such as religion groups, unions, fraternal or athletic groups, or [...] or slept in a correction (including now)? Sex Assigned at Date Recorded Female 04/12/2021 7:39 PM RADIOLOGY DIRECTOR documented as of this encounter Miscellaneous Notes Telephone Encounter - Felicita Spicer L.P.N. - 07/01/2021 4:12 PM CST Noted. OLOGY DIRECTOR Telephone Encounter - Ellen Stevens R.N. - 07/01/2021 4:11 PM CST Please see message related to when pt is scheduled for FFP pre-EGD. Thanks, Ellen Stevens, RN, OCN OLOGY DIRECTOR Telephone Encounter - Ruth Jeter - 07/01/2021 3:48 PM CST Pt has been scheduled 07/02 @ 1000. Pt is aware. OLOGY DIRECTOR Telephone Encounter - Ellen Stevens RGabby - 07/01/2021 12:47 PM CST Orders are signed, have pt come early to allow time for transfusion and then pt needs to go for EGD. Please place in scheduling comments that PT/INR is ordered in plan and needs to be done post transfusion. See messages below from GI nursing about message replies--if need coordinate appts with their department. Thanks, Ellen Stevens RN, OCN OLOGY DIRECTOR Telephone Encounter - Kerry Naranjo APRN, C.N.Frances, M.S.N. - 07/01/2021 11:47 AM CST Signed pended orders for transfusion of 2 units FFP with protocol and post transfusion INR OLOGY DIRECTOR Telephone Encounter - Felicita Spicer L.P.N. - 07/01/2021 9:19 AM CST FFP infusion plan pended. Please review prior to signing. Was able to include order for post infusion PT draw within the order set. Please review. Spoke with patient and discussed need to infusion of FFP prior to her EGD. She verbalized understanding of the information provided. Informed her once the order set was signed by the provider I would reach out to the infusion center to get her infusion set up and then either myself or someone from theinfusion center would reach out regarding report time for infusion etc. She did ask if she would be able to bring in her own blanket for during the procedure. Informed her that I was unfamiliar with the infusion centers policy during COVID and bringing in blankets but that I could ask that question when I call down there. She had no further questions at this time. OLOGY DIRECTOR Telephone Encounter - Kerry Naranjo APRN, C.N.Frances, M.S.N. - 06/30/2021 9:00 PM CST Patient will need transfusion of fresh frozen plasma prior to her upper GI endoscopy on 07/02/[address] Fish. Please pend those orders for two units fresh frozen plasma to me. Please arrange through infusion therapy, her EGD is in the afternoon, should have time in the morning if they get her on their schedule. In addition to the transfusions of fresh frozen plasma, she willneed to repeat PT INR after the transfusions. Her PT INR needs to be 1.5 or less. (I have ordered PTINR) Please contact patient and let her know of the above above arrangements. Thank you, Kerry OLOGY DIRECTOR documented in this encounter Plan of Treatment Upcoming Encounters Date Type Specialty Care Team Description 01/07/2022 Office Visit [facility] Ranjit Red P.A.-C. [address] [place] [phone] (Gwendolyn rahman) 01/12/2022 Appointment Laboratory Medicine Matthew Jerome M.B.B.SSuma, M.D. [address] [place] [phone] (Gwendolyn rahman) 01/12/2022 Appointment Laboratory Medicine Adeline Fraizer M.D., Ph.D. [address] [place] [phone] (Gwendolyn rahman) 01/13/2022 Telemedicine Transplant Joel Tan L.I.C.S.W., M.S. W. [address] [place] [address] [phone] (Gwendolyn rahman) 01/13/2022 Telemedicine Transplant Matthew Jerome M.B.B.S., M.D. [address] [place] [phone] (Gwendolyn rahman) 01/13/2022 Telemedicine Transplant Adeline Frazier M.D., Ph.D. [address] [place] [phone] (Wo rk) 01/28/2022 Office Visit Gastroenterology and Matthew Jerome, Hepatology Lilian Santillan 1025 [place] [phone] (Gwendolyn rk) Scheduled Procedures Name Priority Associated Diagnoses Date/Time ESOPHAGOGASTRODUODENOSCOPY Cirrhosis Alc oholic (HCC) Hypertension Portal (HCC) ESOPHAGOGASTRODUODENOSCOPY Cirrhosis Alc oholic (HCC) Ascites Anemia Macrocytic Thrombocytopenia (HC C) Deficiency Coagulation Acquired (HCC) documented as of this encounter Results (ABNORMAL) Prothrombin Time (PT) (07/02/2021 1:22 PM RADIOLOGY DIRECTOR) [facility] Method Time Signature Prothrombin 24.6 (H) 9.4 - 12.5 07/02/2021 MKTO Time, P sec 1:39 PM RADIOLOGY DIRECTOR INR 2.2 0.9 - 1.1 07/02/2021 MKTO 1:39 PM RADIOLOGY DIRECTOR Comment: ----ADDITIONAL INFORMATION---- Standard intensity warfarin therapeutic range: 2.0 to 3.0 ?? High intensity warfarin therapeutic rang e: 2.5 to 3.5 Specimen Anatomical Collection Method Collection Time Receive d Time (Source) Location / / Volume Laterality Blood (Blood, 07/02/2021 1:22 PM 07/03/19 1:31 Venous) RADIOLOGY DIRECTOR PM RADIOLOGY DIRECTOR Joshua Newsome APRNSSumaN., R.N. LAB BLOOD ADD-ON Performing Organization Address City/State/ZIP Code Phon e Number [facility] [place] [address] [facility] [address] System in [place] [address] [place] [address] documented in this encounter Visit Diagnoses Diagnosis Cirrhosis Alcoholic (HCC) - Primary Thrombocytopenia (HCC) Splenomegaly Acquired Hypertension Portal (HCC) documented in this encounter Additional Health Concerns Infection Onset Date Last Indicated Resolved Time COVID19 Pending 06/30/2021 06/30/2021 06/30/2021 10:43 PM RADIOLOGY DIRECTOR documented as of this encounter Care Teams Mouthpiece Maker Relationship Specialty Start Date End Date Elsewhere, Pcp PCP - General Family Medicine 03/10/20 11/30/21 Ervin Schroeder MD Referring Provider Family Medicine 03/24/[address] [place] [phone] documented as of this encounter
--- OUTSIDE RECORDS SUMMARY | 2021-12-28 23:32 | XMS_ITS | Encounter Summary ---
:1990 Author Organization [facility] Address [address] [place] [address] Care Team Providers Name Role Phone Elsewhere, Pcp Primary Care Provider Unavailable Encounter Details Date Type Department Care Team Description 07/06/2021 Orders Only Department of Gastroenterology Jennifer Fish, in [place], [facility] M.B.B.S. 1025 [facility] 1025 [place] [address] [place], [place] [phone] ( rk) Social History Tobacco Use Types Packs/Day [...] do you attend christianity or Never 2021 mu-ism services? Do you [...] or slept in a long-term (including now)? 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 300 [place] [address] (Gwendolyn rahman) 01/12/2022 Appointment Laboratory Medicine Matthew Jerome M.B.B.S., M.D. 1025 [place] [phone] (Gwendolyn rahman) 01/12/2022 Appointment Laboratory Medicine Adeline Frazier M.D., Ph.D. [address] [place] [phone] (Gwendolyn rahman) 01/13/2022 Telemedicine Transplant Joel Tan L.I.C.S.W., M.S. W. [address] [place] [address] [phone] (Gwendolyn rahman) 01/13/2022 Telemedicine Transplant Matthew Jerome M.B.B.S., Lilian 1025 [place] [phone] (Wo rk) 01/13/2022 Telemedicine Transplant Adeline Frazier M.D., Ph.D. [address] [place] [phone] (Wo rk) 01/28/2022 Office Visit Gastroenterology and Matthew Jerome, Hepatology Tyrell, Lilian 1025 [place] [phone] (Wo rk) Scheduled Procedures Name Priority Associated Diagnoses Date/Time ESOPHAGOGASTRODUODENOSCOPY Cirrhosis Alc oholic (HCC) Hypertension Portal (HCC) ESOPHAGOGASTRODUODENOSCOPY Cirrhosis Alc oholic (HCC) Ascites Anemia Macrocytic Thrombocytopenia (HC C) Deficiency Coagulation Acquired (HCC) documented as of this encounter Visit Diagnoses Not on filedocumented in this encounter Additional Health Concerns Infection Onset Date Last Indicated Resolved Time COVID19 Pending 07/06/2021 07/06/2021 07/06/2021 11:34 AM BRACELET AND BROOCH MAKER documented as of this encounter Care Teams Director Of Direct Marketing Relationship Specialty Start Date End Date Elsewhere, Pcp PCP - General Family Medicine 03/10/20 11/30/21 Ervin Schroeder MD Referring Provider Family Medicine 03/24/[address] [place] [phone] documented as of this encounter
--- OUTSIDE RECORDS SUMMARY | 2021-12-28 23:32 | XMS_ITS | Encounter Summary ---
:1990 Author Organization [facility] Address [address] [place] [address] Care Team Providers Name Role Phone Elsewhere, Pcp Primary Care Provider Unavailable Encounter Details Date Type Department Care Team Description 07/16/2021 Clinical Communication Department of Kerry Naranjo [facility]astro[facility] in [place], [place] M.S.N., R.N. 1025 [facility] 1025 [place] [address] [place], [place] [phone] Social History Tobacco Use Types Packs/Day [...] do you attend amish or Never 2021 gnosticism services? 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 - 07/17/2021 8:00 AM CDT See portal message. Telephone Encounter - Kerry Naranjo APRN C.N.PSuma, M.S.N. - 07/16/2021 3:41 PM CDT Please call pt and ensure she is taking Lactulose and not drinking any ETOH. Her ammonia is high andher liver labs are reflecting possible recent use of ETOH. Kerry Kraus documented in this encounter Plan of Treatment Upcoming Encounters Date Type Specialty Care Team Description 01/07/2022 Office Visit [facility] Ranjit Red P.A.-C. 300 [place] [phone] (Wo rk) 01/12/2022 Appointment Laboratory Medicine Matthew Jerome M.B.B.S., Lilian [address] [place] [phone] (Wo rk) 01/12/2022 Appointment Laboratory Medicine Adeline Frazier M.D., Ph.D. [address] [place] [phone] (Wo rk) 01/13/2022 Telemedicine Transplant Joel Tan L.I.C.S.W., M.S. W. [address] [place] [phone] (Wo rk) 01/13/2022 Telemedicine Transplant Matthew Jerome M.B.B.S., MJules [address] [place] [phone] (Wo rk) 01/13/2022 Telemedicine Transplant Adeline Frazier M.D., Ph.D. [address] [place] [phone] (Wo rk) 01/28/2022 Office Visit Gastroenterology and Matthew Jerome, Hepatology FredySSuma, MJules [address] [place] [phone] (Wo rk) Scheduled Procedures Name Priority Associated Diagnoses Date/Time ESOPHAGOGASTRODUODENOSCOPY Cirrhosis Alc oholic (HCC) Hypertension Portal (HCC) ESOPHAGOGASTRODUODENOSCOPY Cirrhosis Alc oholic (HCC) Ascites Anemia Macrocytic Thrombocytopenia (HC C) Deficiency Coagulation Acquired (HCC) documented as of this encounter Visit Diagnoses Not on filedocumented in this encounter Care Teams Grounds Crew Supervisor Relationship Specialty Start Date End Date Elsewhere, Pcp PCP - General Family Medicine 03/10/20 11/30/21 Ervin Schroeder MD Referring Provider Family Medicine 03/24/[address] [place] [phone] documented as of this encounter
--- OUTSIDE RECORDS SUMMARY | 2021-12-28 23:33 | XMS_ITS | Encounter Summary ---
:1990 Author Organization [facility] Address [address] [place] [address] Care Team Providers Name Role Phone Elsewhere, Pcp Primary Care Provider Unavailable Encounter Details Date Type Department Care Team Description 04/18/2021 Clinical Communication Department of Kerry Naranjo [facility]astro[facility] in [place], [place] M.S.N., R.N. 1025 [facility] 1025 [place] [address] [place], [place] [phone] Social History Tobacco Use Types Packs/Day Years Used Date Smoking Tobacco: Every Day Cigarettes 0.3 Smokeless Tobacco: Never Alcohol Habits Answer Date Recorded How often [...] do you attend episcopal or Never 2021 buddhism services? Do you [...] Recorded Female 04/12/2021 7:39 PM DIRECTOR OF ENVIRONMENTAL SERVICES documented as of this encounter Miscellaneous Notes Telephone Encounter - Kerry Naranjo, YARITZA, C.N.P., M.S.N. - 04/18/2021 10:32 AM CST Please send all the following to the patient per her portal. And when possible follow it up with a phone call to ensure she has received it and give her an opportunity to ask any questions. A lot of this information is new to her, we did discuss yesterday. She did receive some of this information written yesterday but a lot of it is new. I would like for her to ask her primary care provider in [place] if he is able to do the laboratory and ultrasound as described below to do at the end of July the beginning of August so the patient does not have to travel so much. She should not be driving, and she should get her primary care provider to send her to occupational for an assessment for safe driving. Thank you Kerry Patient to report any new or worsening [...] tumor marker, zinc -Vitamin A prescribed to Patrica -Consider taking one vitamin daily -when reviewing her CT scan with the patient during the visit, did note the interpretation findings included malpositioned IUD; she was notified and she stated she will follow-up with her PCP as she has appointment next Wednesday. She also was instructed to contact her [facility] to sign BIANKA as unable to see her laboratory records in Care everywhere. -EGD/MAC. MAC sedation as screening for varices with possible banding -GI follow-up one week after EGD CTOR OF ENVIRONMENTAL SERVICES documented in this encounter Plan of Treatment Upcoming Encounters Date Type Specialty Care Team Description 01/07/2022 Office Visit [facility] Ranjit Red P.A.-C. 300 [place] [address] (Gwendolyn rahman) 01/12/2022 Appointment Laboratory Medicine Matthew Jerome M.B.B.S., M.D. 1025 [place] [phone] (Gwendolyn rahman) 01/12/2022 Appointment Laboratory Medicine Adeline Frazier M.D., Ph.D. [address] [place] [phone] (Gwendolyn rahman) 01/13/2022 Telemedicine Transplant Joel Tan L.I.C.S.W., M.S. W. [address] [place] [phone] (Wo rk) 01/13/2022 Telemedicine Transplant Matthew Jerome M.B.B.S., M.D. [address] [place] [phone] (Wo rk) 01/13/2022 Telemedicine Transplant Adeline Frazier M.D., Ph.D. [address] [place] [phone] (Wo rk) 01/28/2022 Office Visit Gastroenterology and Matthew Jerome, Hepatology VikBGraeme, M.Slick. [address] [place] [phone] (Wo rk) Scheduled Procedures Name Priority Associated Diagnoses Date/Time ESOPHAGOGASTRODUODENOSCOPY Cirrhosis Alc oholic (HCC) Hypertension Portal (HCC) ESOPHAGOGASTRODUODENOSCOPY Cirrhosis Alc oholic (HCC) Ascites Anemia Macrocytic Thrombocytopenia (HC C) Deficiency Coagulation Acquired (HCC) documented as of this encounter Visit Diagnoses Not on filedocumented in this encounter Care Teams Welfare Administrator Relationship Specialty Start Date End Date Elsewhere, Pcp PCP - General Family Medicine 03/10/20 11/30/21 Ervin Schroeder MD Referring Provider Family Medicine 03/24/[address] [place] [phone] documented as of this encounter
--- OUTSIDE RECORDS SUMMARY | 2021-12-28 23:33 | XMS_ITS | Encounter Summary ---
:1990 Author Organization [facility] Address [address] [place] [address] Care Team Providers Name Role Phone Elsewhere, Pcp Primary Care Provider Unavailable Encounter Details Date Type Department Care Team Description 05/23/2021 Clinical Communication Department of Felicita Spicer Gastroenterology in [place], [place] [phone] [employer] ([facility] [place] [address] Social History Tobacco Use Types Packs/Day [...] or slept in a half-way (including now)? 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 - 05/23/2021 2:26 PM CST Received a message from the patient who states she is a patient of Kerry Naranjo for Cirrhosis and she has only seen her once so far. But she did have some questions as she has a cold and she was under the impression that she should avoid all ibuprofen and tylenol. Heavy Rail Train Operator did inform her that often withliver disease the recommendations are to avoid all NSAIDs but that tylenol can be used in moderationas needed. She states she was just wondering as lots of the cold medications do contain tylenol and she just wanted to be sure it was okay for her to take before using any of the OTC cold medications. She also asked group underwriter to pass along to Kerry as there was some discussion regarding the cause of her current liver disease state and what caused it. She states that after doing research she thought it would be appropriate to mention that she did struggle with Anorexia and Bulimia on and off for the last17 years or so. She did state that from her research she noted that those eating disorders could elevate liver enzymes. She wonders if this could have contributed. Heavy Rail Train Operator informed patient I would get all her questions to the provider and update her with her response regarding the cold medication. She had no further questions at this time. OPERATOR documented in this encounter Plan of Treatment Upcoming Encounters Date Type Specialty Care Team Description 01/07/2022 Office Visit [facility] Ranjit Red P.A.-C. [address] [place] [phone] (Wo rk) 01/12/2022 Appointment Laboratory Medicine Matthew Jerome M.B.B.SSuma, MJules [address] [place] [phone] (Wo rk) 01/12/2022 Appointment Laboratory Medicine Adeline Frazier M.D., Ph.D. [address] [place] [phone] (Wo rk) 01/13/2022 Telemedicine Transplant Joel Tan L.I.C.S.W., M.S. W. [address] [place] [phone] (Wo rk) 01/13/2022 Telemedicine Transplant Matthew Jerome M.B.B.SSuma, M.D. [address] [place] [phone] (Wo rk) 01/13/2022 Telemedicine Transplant Adeline Frazier M.D., Ph.D. [address] [place] [phone] (Wo rk) 01/28/2022 Office Visit Gastroenterology and Matthew Jerome, Hepatology FrdeySSuma, M.Slick. [address] [place] [phone] (Wo rk) Scheduled Procedures Name Priority Associated Diagnoses Date/Time ESOPHAGOGASTRODUODENOSCOPY Cirrhosis Alc oholic (HCC) Hypertension Portal (HCC) ESOPHAGOGASTRODUODENOSCOPY Cirrhosis Alc oholic (HCC) Ascites Anemia Macrocytic Thrombocytopenia (HC C) Deficiency Coagulation Acquired (HCC) documented as of this encounter Visit Diagnoses Not on filedocumented in this encounter Care Teams Commercial Lines Sales Executive Relationship Specialty Start Date End Date Elsewhere, Pcp PCP - General Family Medicine 03/10/20 11/30/21 Ervin Schroeder MD Referring Provider Family Medicine 03/24/[address] [place] [phone] documented as of this encounter
--- OUTSIDE RECORDS SUMMARY | 2021-12-28 23:33 | XMS_ITS | Encounter Summary ---
:1990 Author Organization [facility] Address [address] [place] [address] Care Team Providers Name Role Phone Elsewhere, Pcp Primary Care Provider Unavailable Encounter Details Date Type Department Care Team Description 06/26/2021 Clinical Communication Department of Jesse [facility] in [place], [place] P.Jim, M.S. [address] [facility] 1025 [place] [address] [place], [place] [phone] Social History Tobacco Use Types Packs/Day [...] do you attend hindu or Never 2021 yarsani services? Do you belong to any clubs or No 07/17/2021 organizations such as hindu groups, unions, fraternal or athletic groups, or [...] or slept in a usp (including now)? Sex Assigned at Date Recorded Female 04/12/2021 7:39 PM FOUNTAIN ATTENDANT documented as of this encounter Miscellaneous Notes Telephone Encounter - Paty Parrish R.N. - 06/26/2021 3:16 PM FOUNTAIN ATTENDANT Could you put in an INR check for this patient? She will be having her EGD rescheduled per Dr. Paul.Last INR was 2.7 and has not been rechecked recently. If she has the procedure done in our soonest opening, she will need to have the INR drawn tomorrow (06-27-21) or Wednesday (06-30-21). Thank you for your help. Paty TAIN ATTENDANT documented in this encounter Plan of Treatment Upcoming Encounters Date Type Specialty Care Team Description 01/07/2022 Office Visit [facility] Ranjit Red P.A.-C. [address] [place] [address] ADI PANIAGUA [phone] (Wo rk) 01/12/2022 Appointment Laboratory Medicine Matthew Jeroem M.B.B.S., M.D. [address] [place] [phone] (Wo rk) 01/12/2022 Appointment Laboratory Medicine Adeline Frazier M.D., Ph.D. [address] [place] [address] [phone] (Wo rk) 01/13/2022 Telemedicine Transplant Joel Tan L.I.C.S.W., M.S. W. [address] [place] [phone] (Wo rk) 01/13/2022 Telemedicine Transplant Matthew Jerome M.B.B.S., MCee. [address] [place] [phone] (Wo rk) 01/13/2022 Telemedicine Transplant Adeline Frazier M.D., Ph.D. [address] [place] [phone] (Wo rk) 01/28/2022 Office Visit Gastroenterology and Matthew Jerome, Hepatology MSumaBSumaB.SSuma, MCee. [address] [place] [phone] (Wo rk) Scheduled Procedures Name Priority Associated Diagnoses Date/Time ESOPHAGOGASTRODUODENOSCOPY Cirrhosis Alc oholic (HCC) Hypertension Portal (HCC) ESOPHAGOGASTRODUODENOSCOPY Cirrhosis Alc oholic (HCC) Ascites Anemia Macrocytic Thrombocytopenia (HC C) Deficiency Coagulation Acquired (HCC) documented as of this encounter Visit Diagnoses Not on filedocumented in this encounter Care Teams Streetcar Dispatcher Relationship Specialty Start Date End Date Elsewhere, Pcp PCP - General Family Medicine 03/10/20 11/30/21 Ervin Schroeder MD Referring Provider Family Medicine 03/24/[address] [place] [phone] (work) documented as of this encounter
--- OUTSIDE RECORDS SUMMARY | 2021-12-28 23:33 | XMS_ITS | Encounter Summary ---
:1990 Author Organization [facility] Address [address] [place] [address] Care Team Providers Name Role Phone Elsewhere, Pcp Primary Care Provider Unavailable Encounter Details Date Type Department Care Team Description 06/30/2021 Lab Department of Kerry Gee Enc ounter For Screening Medicine in [place], YARITZA, M.S.N ., R.N. For Other Viral Diseases [address] (COVID-19) [facility] [place] [phone] (Wo rk) Social History Tobacco Use Types [...] do you attend orthodoxy or Never 2021 baptism services? Do you belong to any clubs or No 07/17/2021 organizations such as orthodoxy groups, unions, fraWeebly or athletic groups, or school groups? 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 [address] [place] [address] ([facility]) 01/12/2022 Appointment Laboratory Medicine Matthew Jerome M.B.BSumaS., M.D. [address] [place] [phone] ([facility]) 01/12/2022 Appointment Laboratory Medicine Adeline Frazier M.D., Ph.D. [address] [place] [phone] ([facility]) 01/13/2022 Telemedicine Transplant Joel Tan L.I.C.SAgnes., M.S. W. [address] [place] [phone] (Wo rk) 01/13/2022 Telemedicine Transplant Matthew Jerome M.B.B.S., MCee. [address] [place] [phone] (Wo rk) 01/13/2022 Telemedicine Transplant Adeline Frazier M.D., Ph.D. [address] [place] [phone] (Wo rk) 01/28/2022 Office Visit Gastroenterology and Matthew Jerome, Hepatology Tyrell, Lilian [address] [place] [phone] (Wo rk) Scheduled Procedures Name Priority Associated Diagnoses Date/Time ESOPHAGOGASTRODUODENOSCOPY Cirrhosis Alc oholic (HCC) Hypertension Portal (HCC) ESOPHAGOGASTRODUODENOSCOPY Cirrhosis Alc oholic (HCC) Ascites Anemia Macrocytic Thrombocytopenia (HC C) Deficiency Coagulation Acquired (HCC) documented as of this encounter Procedures Procedure Name Priority Date/Time Associated Diagnosis Comme nts SARS CORONAVIRUS-2 Routine 06/30/2021 2:34 PM Encounter For Re sults for this RNA, V FACTORY ASSEMBLER Screening For Other procedur e are in Viral Diseases the results (COVID-19) section. documented in this encounter Results SARS Coronavirus-2 RNA, V Asymptomatic (06/30/2021 2:34 PM FACTORY ASSEMBLER) [facility] Method Time Signature SARS-CoV-2 Swab, 06/30/2021 MKTO Specimen Nasopharynx 10:42 PM Source FACTORY ASSEMBLER SARS CoV-2 Undetected Undetected 06/30/2021 MKTO RNA, TMA 10:42 PM FACTORY ASSEMBLER Comment: SARS-CoV-2 RNA absent. This result does not rule out COVID-19 in the patient, as the sensitivity of the test depends o n the timing of the specimen collection and the quality of the specim en. Result should be correlated with patient's history and clinical presentat ion. ----ADDITIONAL INFORMATION---- This molecular amplification test was pe rformed using the Aptima SARS-CoV-2 assay ([employer] on the Homer Sys tem under emergency use authorization (EUA) by the U.S. Food and Drug Administ ration. Fact sheets for this EUA assay can be fo und at the following links: For Healthcare Providers: https://www.fd a.gov/media/276565/download For Patients: https://www.fda.gov/media/ 332746/download Specimen Anatomical Collection Method Collection Time Receive d Time (Source) Location / / Volume Laterality Varies 06/30/2021 2:34 PM 5:12 (Nasopharynx) FACTORY ASSEMBLER PM FACTORY ASSEMBLER Elizabeth Newsome APRN.S.N., R.N. LAB MICROBIOLOGY - G ENERAL ORDERABLES Performing Organization Address City/State/[facility] Phon e Number [facility]- [address] [place] [address] [place] [address] System [address] documented in this encounter Visit Diagnoses Diagnosis Encounter For Screening For Other Viral Diseases (COVID-19) documented in this encounter Additional Health Concerns Infection Onset Date Last Indicated Resolved Time COVID19 Pending 06/30/2021 06/30/2021 06/30/2021 10:43 PM FACTORY ASSEMBLER documented as of this encounter Care Teams Special Technical Operations Officer Relationship Specialty Start Date End Date Elsewhere, Pcp PCP - General Family Medicine 03/10/20 11/30/21 Ervin Schroeder MD Referring Provider Family Medicine 03/24/211979 [address], [place] [address] documented as of this encounter
--- OUTSIDE RECORDS SUMMARY | 2021-12-28 23:33 | XMS_ITS | Encounter Summary ---
:1990 Author Organization [facility] Address [address] [place] [address] Care Team Providers Name Role Phone Elsewhere, Pcp Primary Care Provider Unavailable Encounter Details Date Type Department Care Team Description 06/30/2021 Hospital Encounter Department of Rut Molina Alcoholic Laboratory [facility] ([facility]) Medicine, Specialty P.A.-C., M.S . [facility], in [address] [address] [place], [place] [phone] (Work) [phone] Social History Tobacco Use Types Packs/Day Years [...] do you attend faith or Never 2021 episcopalian services? Do you belong to any clubs or No 07/17/2021 organizations such as faith groups, unions, fraoBaz or athletic groups, or school groups? 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 documented as of this encounter Miscellaneous Notes Result Encounter Note - Kerry Naranjo APRN, C.N.P., M.S.N. - 07/01/2021 12:02 PM CST Prolonged INR of 2.3 has been addressed-patient will have 2 units of FFP transfusion followed by repeat INR on 07/02/2021 prior to her scheduled upper GI endoscopy. The endoscopist who will be performingher upper GI endoscopy has been notified. ESTATE DEVELOPMENT MANAGER documented in this encounter Plan of Treatment Upcoming Encounters Date Type Specialty Care Team Description 01/07/2022 Office Visit Community Internal Medicine Ranjit Red P.A.-C. [address] [phone] (Wo rk) 01/12/2022 Appointment Laboratory Medicine Matthew Jerome M.B.B.S., M.D. [address] [place] [phone] (Wo rk) 01/12/2022 Appointment Laboratory Medicine Adeline Frazier M.D., Ph.D. [address] [place] [phone] (Wo rk) 01/13/2022 Telemedicine Transplant Joel Tan L.I.C.SSumaWSuma, M.S. W. [address] [place] [phone] (Wo rk) 01/13/2022 Telemedicine Transplant Matthew Jerome M.B.B.SSuma, M.D. [address] [place] [phone] (Wo rk) 01/13/2022 Telemedicine Transplant Adeline Frazier M.D., Ph.D. [address] [place] [phone] (Wo rk) 01/28/2022 Office Visit Gastroenterology and Matthew Jerome, Hepatology M.Lilian Hudson [address] [place] [phone] (Wo rk) Scheduled Procedures Name Priority Associated Diagnoses Date/Time ESOPHAGOGASTRODUODENOSCOPY Cirrhosis Alc oholic (HCC) Hypertension Portal (HCC) ESOPHAGOGASTRODUODENOSCOPY Cirrhosis Alc oholic (HCC) Ascites Anemia Macrocytic Thrombocytopenia (HC C) Deficiency Coagulation Acquired (HCC) documented as of this encounter Procedures Procedure Name Priority Date/Time Associated Comments Diagnosis PROTHROMBIN TIME Routine 06/30/2021 2:27 PM Cirrhosis Alcoholi c Results for this (PT), P REAL ESTATE DEVELOPMENT MANAGER (HCC) procedure are i n the results section. documented in this encounter Results (ABNORMAL) Prothrombin Time (PT) (06/30/2021 2:27 PM REAL ESTATE DEVELOPMENT MANAGER) [facility] Method Time Signature Prothrombin 26.7 (H) 9.4 - 12.5 06/30/2021 MKTO Time, P sec 3:02 PM REAL ESTATE DEVELOPMENT MANAGER INR 2.3 0.9 - 1.1 06/30/2021 MKTO 3:02 PM REAL ESTATE DEVELOPMENT MANAGER Comment: ----ADDITIONAL INFORMATION---- Standard intensity warfarin therapeutic range: 2.0 to 3.0 ?? High intensity warfarin therapeutic rang e: 2.5 to 3.5 Specimen Anatomical Collection Method Collection Time Receive d Time (Source) Location / / Volume Laterality Blood (Blood, 06/30/2021 2:27 PM 06/30/19 2:46 Venous) REAL ESTATE DEVELOPMENT MANAGER PM REAL ESTATE DEVELOPMENT MANAGER Authorizing Provider Result Woodrow Molina P.A.-C., M.S. LAB BLOOD ADD-ON Performing Organization Address City/State/ZIP Code Phon e Number [facility]- [address] [place] [address] [place] [address] System [address] documented in this encounter Visit Diagnoses Diagnosis Cirrhosis Alcoholic (HCC) documented in this encounter Additional Health Concerns Infection Onset Date Last Indicated Resolved Time COVID19 Pending 06/30/2021 06/30/2021 06/30/2021 10:43 PM REAL ESTATE DEVELOPMENT MANAGER documented as of this encounter Care Teams Business Test Analyst Relationship Specialty Start Date End Date Elsewhere, Pcp PCP - General Family Medicine 03/10/20 11/30/21 Ervin Schroeder MD Referring Provider Family Medicine 03/24/[address] [place] [phone] documented as of this encounter
--- OUTSIDE RECORDS SUMMARY | 2021-12-28 23:33 | XMS_ITS | Encounter Summary ---
:1990 Author Organization [facility] Address [address] [place] [address] Care Team Providers Name Role Phone Elsewhere, Pcp Primary Care Provider Unavailable Encounter Details Date Type Department Care Team Description 04/29/2021 Clinical Communication Department of Kerry Naranjo Gastroenterology in [place], [place] M.S.N., R.N. [address] [facility] [address] [place] [address] [place], [place] [phone] Social History Tobacco Use Types Packs/Day [...] do you attend temple or Never 2021 sikh services? 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 - 04/29/2021 4:07 PM CST Notified patient of recommendations. Patient was very appreciative of the information. NCIAL COORDINATOR Telephone Encounter - Kerry Naranjo APRN C.N.PSuma, M.S.N. - 04/29/2021 4:03 PM CST Reviewed gabapentin in relation to hepatic/liver disease there are no adjustments needed (per [employer]). It is ok for her to take. Kerry Naranjo APRN, C.N.P., M.S.N. NCIAL COORDINATOR Telephone Encounter - Ines Warren R.N. - 04/29/2021 3:06 PM CST Patient states that when she was discharged from the hospital on her discharge paperwork she was told to discontinue Gabapentin. Patient states that she continues to have numbness and tingling in her hands and feet. Patient was prescribed Gabapentin yesterday by her PCP but was told to check with Gi pr ovider. Patient calling to see if there is a contraindication to taking gabapentin from a GI standpoint? NCIAL COORDINATOR Telephone Encounter - Jeanangela Elizabet Zamora - 04/29/2021 2:41 PM CST Patient is requesting a call back in regards to her Gabapentin from Kerry Naranjo. Ok to leave a message. NCIAL COORDINATOR documented in this encounter Plan of Treatment Upcoming Encounters Date Type Specialty Care Team Description 01/07/2022 Office Visit Community Internal Medicine Ranjit Red P.A.-C. [address] [place] [phone] (Gwendolyn rahman) 01/12/2022 Appointment Laboratory Medicine Matthew Jerome M.B.BSumaSSuma, M.D. [address] [place] [phone] (Gwendolyn rahman) 01/12/2022 Appointment Laboratory Medicine Adeline Frazier M.D., Ph.D. [address] [place] [phone] (Gwendolyn rahman) 01/13/2022 Telemedicine Transplant Joel Tan L.I.C.SSumaW., M.S. W. [address] [place] [phone] (Gwendolyn rahman) 01/13/2022 Telemedicine Transplant Matthew Jerome M.B.B.S., M.D. [address] [place] [phone] (Gwendolyn rahman) 01/13/2022 Telemedicine Transplant Adeline Frazier M.D., Ph.D. [address] [place] [phone] (Gwendolyn rk) 01/28/2022 Office Visit Gastroenterology and Matthew Jerome, Hepatology Lilian Santillan [address] [place] [phone] (Gwendolyn rahman) Scheduled Procedures Name Priority Associated Diagnoses Date/Time ESOPHAGOGASTRODUODENOSCOPY Cirrhosis Alc oholic (HCC) Hypertension Portal (HCC) ESOPHAGOGASTRODUODENOSCOPY Cirrhosis Alc oholic (HCC) Ascites Anemia Macrocytic Thrombocytopenia (HC C) Deficiency Coagulation Acquired (HCC) documented as of this encounter Visit Diagnoses Not on filedocumented in this encounter Care Teams Dip Unit Operator Relationship Specialty Start Date End Date Elsewhere, Pcp PCP - General Family Medicine 03/10/20 11/30/21 Ervin Schroeder MD Referring Provider Family Medicine 03/24/[address] [place] [phone] documented as of this encounter
--- OUTSIDE RECORDS SUMMARY | 2021-12-28 23:33 | XMS_ITS | Encounter Summary ---
:1990 Author Organization [facility] Address [address] [place] [address] Care Team Providers Name Role Phone Elsewhere, Pcp Primary Care Provider Unavailable Encounter Details Date Type Department Care Team Description 05/06/2021 Clinical Communication Department of Kerry Naranjo Gastroenterology in [place], [place] M.S.N., R.N. [address] [facility] [address] [place] [address] [place], [place] [phone] Social History Tobacco Use Types Packs/Day [...] or relatives? How often do you attend christian or Never 2021 tenriism services? Do you belong to any clubs or No 07/17/2021 organizations such as christian groups, unions, fraternal or athletic groups, or [...] or slept in a fpc (including now)? 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 [address] [place] [phone] (Gwendolyn rahman) 01/12/2022 Appointment Laboratory Medicine Matthew Jerome M.B.BSumaSSuma, M.D. [address] [place] [phone] (Gwendolyn rahman) 01/12/2022 Appointment Laboratory Medicine Adeline Frazier M.D., Ph.D. [address] [place] [phone] (Gwendolyn rk) 01/13/2022 Telemedicine Transplant Joel Tan L.I.C.S.W., M.S. W. [address] [place] [phone] (Wo lacey) 01/13/2022 Telemedicine Transplant Matthew Jerome M.B.B.S., M.D. [address] [place] [phone] (Wo rk) 01/13/2022 Telemedicine Transplant Adeline Frazier M.D., Ph.D. [address] [place] [phone] (Wo rk) 01/28/2022 Office Visit Gastroenterology and Matthew Jerome, Hepatology Lilian Santillan [address] [place] [phone] (Wo rk) Scheduled Procedures Name Priority Associated Diagnoses Date/Time ESOPHAGOGASTRODUODENOSCOPY Cirrhosis Alc oholic (HCC) Hypertension Portal (HCC) ESOPHAGOGASTRODUODENOSCOPY Cirrhosis Alc oholic (HCC) Ascites Anemia Macrocytic Thrombocytopenia (HC C) Deficiency Coagulation Acquired (HCC) documented as of this encounter Visit Diagnoses Not on filedocumented in this encounter Care Teams Rivet Tosser Relationship Specialty Start Date End Date Elsewhere, Pcp PCP - General Family Medicine 03/10/20 11/30/21 Ervin Schroeder MD Referring Provider Family Medicine 03/24/[address] [place] [phone] documented as of this encounter
--- OUTSIDE RECORDS SUMMARY | 2021-12-28 23:33 | XMS_ITS | Encounter Summary ---
:1990 Author Organization [facility] Address [address] [place] [address] Care Team Providers Name Role Phone Elsewhere, Pcp Primary Care Provider Unavailable Reason for Referral Outpatient (Routine) - Closed Specialty Diagnoses / Referred By Contact Referred To Procedures Contact Gastroenterology Kerry Elder [facility] Hepatology Elizabeth VIGIL.S.N., R.N. [address] [place] [address] Referral ID Status Reason Start Date Expiration Date Visits Requ ested Visits Authorized [id number] Closed 04/17/2021 04/17/2022 1 1 LE TECHNICAL ARCHITECT Reason for Visit Outpatient (Routine) - Closed Specialty Diagnoses / Referred By Contact Referred To Procedures Contact Kerry Mosquera [facility] Hepatology Elizabeth VIGIL.S.N., R.N. [address] [place] [address] Referral ID Status Reason Start Date Expiration Date Visits Requ ested Visits Authorized [id number] Closed 03/15/2021 03/15/2022 1 1 Encounter Details Date Type Department Care Team Description 04/17/2021 Office Visit Department of Kerry Naranjo Cirrhosis Alc oholic (HCC) (Primary Dx); Gastroenterology in S, PRODUCE INSPECTOR, Thromboc ytopenia (HCC); [place], [place] M.S.N., R.N. Splenomegaly Acquired; [address] [facility] [address] [facility] Deficiency Vitamin D; [place] [address] [place], [place] Deficiency Vitamin A; [phone] Hypertension Portal (HCC); [phone] Ascites; (Work) Jaundice; [phone] Malnutrition Pr otein-Calorie Unspecified (HCC) (Fax) Social History Tobacco Use Types Packs/Day Years Used Date Smoking Tobacco: Every Day Cigarettes 0.3 Smokeless Tobacco: Never Tobacco Cessation: Counseling Given: Yes Alcohol Habits Answer Date Recorded How often [...] do you attend hindu or Never 2021 oriental orthodox services? Do you belong to any [...] at Date Recorded Female 04/12/2021 7:39 PM ORACLE TECHNICAL ARCHITECT documented as of this encounter Last Filed Vital Signs Vital Sign Reading Time Taken Comments Blood Pressure 100/60 04/17/2021 3:20 PM ORACLE TECHNICAL ARCHITECT Pulse 80 04/17/2021 3:20 PM ORACLE TECHNICAL ARCHITECT Temperature - - Respiratory Rate - - Oxygen Saturation - - Inhaled Oxygen Concentration - - Weight 50.3 kg (110 lb 14.3 oz) 04/17/2021 3:20 PM ORACLE TECHNICAL ARCHITECT Height 157.5 cm (5' 2.01) 04/17/2021 3:20 PM ORACLE TECHNICAL ARCHITECT Body Mass Index 20.28 04/17/2021 3:20 PM ORACLE TECHNICAL ARCHITECT documented in this encounter Patient Instructions Patient InstructionsKerry Naranjo APRN, C.NDayne, M.S.N. - 04/17/2021 3:30 PM CST -EGD/MAC. 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 - 04/17/2021 3:30 PM CST Kerry Naranjo APRN, C.N.P., M.S.N. [address] [place] [address] Patient Name: Catia Carias Date of : 1990 Date of encounter: 04/17/21 SUBJECTIVE CHIEF COMPLAINT/REASON FOR VISIT Hospital d/c follow up for liver disease HISTORY OF PRESENT ILLNESS Catia Carias is a 30 y.o. female who presented with her mother Parris to the GI clinic for evaluation and management of her decompensated alcoholic cirrhosis of the liver. During her recent hospitalization on 03/12/2021 the [...] tube placed, it was with coffee-ground return. The history of alcohol use information was inconsistent with her reports - to some providers as recent as 1 month ago, others 1 year ago. Mother and boyfriend denied recent alcohol use. Relevant GI workup included: Previous RUQ ultrasound and CT from 03/26/2020 with mild fatty liver, no ascites, otherwise unremarkable. At that time, there was no splenomegaly. There was resolution of recent acute pancreatitis from 11/2019. In 2019, she had elevated liver enzymes. Negative smooth muscle, negative viral hepatitis. She did have +SAMMY. She has multiple episodes [...] primary care provider Dr. Ervin Schroeder, from [facility] in [facility]; phone [phone], . She stateshe prescribed vitamin-D for GERD [...] Family History and Social History MEDICAL HISTORY No past medical history on file. SURGICAL HISTORY No past surgical history on file. FAMILY HISTORY No family history on file. SOCIAL HISTORY Social History Socioeconomic History ??? Marital status: Single Spouse name: None ??? Number of children: None ??? Years of education: None ??? Highest education level: None Occupational History ??? None Tobacco Use ??? Smoking status: Current Every Day Smoker Packs/day: 0.25 Types: Cigarettes ??? Smokeless tobacco: Never Used Substance and Sexual Activity ??? Alcohol use: None ??? Drug use: None ??? Sexual activity: None Other Topics Concern ??? None Social History Narrative ??? None Social Determinants of Health Financial Resource Strain: Not on file Food Insecurity: Not on file Transportation Needs: Not on file Physical Activity: Not on file Stress: Not on file Social Connections: Not on file Intimate Partner Violence: Not on file Housing Stability: Not on file CURRENT MEDICATIONS Reviewed and reconciled. Current Outpatient Medications on File Prior to Visit Medication Sig Dispense Refill ??? folic acid 1 mg tablet Take 1 tablet (1 mg total) by mouth daily. 30 tablet 1 ??? furosemide (LASIX) 20 mg tablet Take 1 tablet (20 mg total) by mouth daily. 30 tablet 1 ??? lactulose (CHRONULAC) 20 gram/30 mL solution 45 mL (30 g total) by gastric tube route 3 (three) times a day. 4050 mL 1 ??? magnesium oxide (MAG-OX) 400 mg (241.3 mg magnesium) tablet Take 1 tablet (400 mg total) by mouth 2 (two) times a day before breakfast and dinner. 60 tablet 1 ??? pantoprazole (PROTONIX) 40 mg EC tablet Take 1 tablet (40 mg total) by mouth every morning before breakfast. 30 tablet 1 ??? rifAXIMin (XIFAXAN) 550 mg tablet Take 1 tablet (550 mg total) by mouth 2 (two) times a day Indications: Prophylaxis, medical. 60 tablet 1 ??? sodium bicarbonate 650 mg tablet Take 1 tablet (650 mg total) by mouth 4 (four) times a day. 120tablet 1 ??? spironolactone (ALDACTONE) 50 mg tablet Take 1 tablet (50 mg total) by mouth daily. 30 tablet 1 ??? thiamine (VITAMIN B1) 100 mg tablet Take 1 tablet (100 mg total) by mouth daily. 30 tablet 1 ??? ciprofloxacin (CIPRO) 500 mg tablet Take 1 tablet (500 mg total) by mouth every morning before breakfast Indications: Prophylaxis, medical. 30 tablet 11 No current facility-administered medications on file prior to visit. ALLERGIES/CONTRAINDICATIONS Allergies Allergen Reactions ??? Azithromycin Other (see comments) Unknown REVIEW OF SYSTEMS Constitutional: Positive for fatigue. Cardiovascular: Positive for swelling in the legs or feet. Musculoskeletal: Positive for arthralgias, pain or stiffness in the joints and joint swelling. Neurological: Positive for numbness or shooting pain in hands, arms, legs, or feet. The following systems were negative: Skin, Eyes, ENT, Respiratory, GI, , Hematologic, Psych OBJECTIVE Vitals reviewed. Constitutional Appearance: She is normal weight. She is ill-appearing. HENT Head: Normocephalic and atraumatic. Eyes General: Scleral icterus present. Cardiovascular Rate and Rhythm: Normal rate and regular rhythm. Heart sounds: Normal heart sounds. Pulmonary Effort: Pulmonary effort is normal. Breath sounds: Normal breath sounds. Abdominal General: Abdomen is flat. Bowel sounds are normal. There is no distension. Palpations: Abdomen is soft. Tenderness: There is no abdominal tenderness. There is no guarding or rebound. Skin Coloration: Skin is jaundiced. Neurological Mental Status: She is alert and oriented to person, place, and time. Psychiatric Behavior: Behavior normal. Behavior is cooperative. VITAL SIGNS Vitals: 04/17/21 1520 BP: 100/60 Patient Position: Sitting Pulse: 80 Height: 157.5 cm Weight: 50.3 kg Body mass index is 20.28 kg/m??. DIAGNOSTICS Relevant, available EMR, lab work, imaging reports and endoscopy reports reviewed. ASSESSMENT / PLAN #1 Decompensated cirrhosis secondary to alcohol: Current MELD-Na score = MELD-Na score: 25 [...] hypertension with splenomegaly and thrombocytopenia. #4 Unknown esophageal varices #4 Portal hypertensive gastropathy on Beta-tommy not currently on. Heart rate = 80 Next UPPER ENDOSCOPY scheduled 06/27/2021 #5 Hepatic encephalopathy: Controlled, likely some component stage 0-1 as she does have some difficulty with memory recall - Continue lactulose with dose titration to [...] D deficient, has been prescribed by her PCP however has not initiated taking as of yet-should have recheck of level end of July [...] She also was instructed to contact her [facility] to sign BIANKA as unable to see her laboratory records in Care everywhere. -EGD/MAC. MAC sedation as screening for varices with possible banding -GI follow-up one week after EGD It was a pleasure seeing Ms. Carias [...] personally spent over half of a total 60 minutes face to face with the patient in counseling, education, and discussion and/or coordination of care as described above. Kerry Naranjo APRN, C.N.Shanita., M.S.N. Gastroenterology and Hepatology [facility] LE TECHNICAL ARCHITECT documented in this encounter Plan of Treatment Upcoming Encounters Date Type Specialty Care Team Description 01/07/2022 Office Visit Community Internal Medicine Ranjit Red P.A.-C. [address] [place] [address] ADI Chua [phone] (Wo rk) 01/12/2022 Appointment Laboratory Medicine Matthew Jerome M.B.B.S., MJules [address] [place] [phone] (Wo rk) 01/12/2022 Appointment Laboratory Medicine Adeline Frazier M.D., Ph.D. [address] [place] [address] [phone] (Wo rk) 01/13/2022 Telemedicine Transplant Joel Tan L.I.C.S.W., M.S. W. [address] [place] [address] [phone] (Wo rk) 01/13/2022 Telemedicine Transplant Matthew Jerome M.B.B.S., Lilian [address] [place] [phone] (Wo rk) 01/13/2022 Telemedicine Transplant Adeline Frazier M.D., Ph.D. [address] [place] [address] [phone] (Wo rk) 01/28/2022 Office Visit Gastroenterology and Matthew Jerome, Hepatology Tyrell, MJules [address] [place] [phone] (Wo rk) Scheduled Procedures Name Priority Associated Diagnoses Date/Time ESOPHAGOGASTRODUODENOSCOPY Cirrhosis Alc oholic (HCC) Hypertension Portal (HCC) ESOPHAGOGASTRODUODENOSCOPY Cirrhosis Alc oholic (HCC) Ascites Anemia Macrocytic Thrombocytopenia (HC C) Deficiency Coagulation Acquired (HCC) Scheduled Referrals Name Type Priority Associated Order Schedule Diagnoses Gastroenterology and Outpatient Routine Expecte d: Hepatology office visit Referral 04/02 (clinic) (Approximate), Expires: 07/16/2022 documented as of this encounter Visit Diagnoses Diagnosis Cirrhosis Alcoholic (HCC) - Primary Thrombocytopenia (HCC) Splenomegaly Acquired Deficiency Vitamin D Deficiency Vitamin A Hypertension Portal (HCC) Ascites Jaundice Malnutrition Protein-Calorie Unspecified (HCC) documented in this encounter Care Teams Hvac Residential Service Technician Relationship Specialty Start Date End Date Elsewhere, Pcp PCP - General Family Medicine 03/10/20 11/30/21 Ervin Schroeder MD Referring Provider Family Medicine 03/24/[address] [place] [phone] documented as of this encounter
--- OUTSIDE RECORDS SUMMARY | 2021-12-28 23:33 | XMS_ITS | Encounter Summary ---
:1990 Author Organization [facility] Address [address] [place] [address] Care Team Providers Name Role Phone Elsewhere, Pcp Primary Care Provider Unavailable Encounter Details Date Type Department Care Team Description 06/26/2021 Orders Only Department of [place], Cirrhosis Alco holic Gastroenterology in [place] [facility], ([facility]) (P rimary Dx) [place], [place] P.AKandis, M.S. [address] [facility] [address] [place] [address] [place], [place] [phone] Social History Tobacco Use Types Packs/Day [...] do you attend adventist or Never 2021 congregational services? Do you belong to any clubs or No 07/17/2021 organizations such as adventist groups, unions, [employer] or athletic groups, or school groups? How [...] or slept in a custodial (including now)? 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 [address] [place] [address] (Gwendolyn rahman) 01/12/2022 Appointment Laboratory Medicine Matthew Jerome M.B.BSumaSSuma, M.D. [address] [place] [phone] ([facility]) 01/12/2022 Appointment Laboratory Medicine Adeline Frazier M.D., Ph.D. [address] [place] [phone] ( lacey) 01/13/2022 Telemedicine Transplant Joel Tan L.I.C.S.W., M.S. W. [address] [place] [address] [phone] (Wo rk) 01/13/2022 Telemedicine Transplant Matthew Jerome M.B.B.S., M.Slick. [address] [place] [phone] (Wo rk) 01/13/2022 Telemedicine Transplant Adeline Frazier M.D., Ph.D. [address] [place] [phone] (Wo rk) 01/28/2022 Office Visit Gastroenterology and Matthew Jerome, Hepatology Tyrell, Lilian [address] [place] [phone] (Wo rk) Scheduled Procedures Name Priority Associated Diagnoses Date/Time ESOPHAGOGASTRODUODENOSCOPY Cirrhosis Alc oholic (HCC) Hypertension Portal (HCC) ESOPHAGOGASTRODUODENOSCOPY Cirrhosis Alc oholic (HCC) Ascites Anemia Macrocytic Thrombocytopenia (HC C) Deficiency Coagulation Acquired (HCC) documented as of this encounter Results (ABNORMAL) Prothrombin Time (PT) (06/30/2021 2:27 PM AIRWAYS OPERATIONS SPECIALIST) [facility] Method Time Signature Prothrombin 26.7 (H) 9.4 - 12.5 06/30/2021 MKTO Time, P sec 3:02 PM AIRWAYS OPERATIONS SPECIALIST INR 2.3 0.9 - 1.1 06/30/2021 MKTO 3:02 PM AIRWAYS OPERATIONS SPECIALIST Comment: ----ADDITIONAL INFORMATION---- Standard intensity warfarin therapeutic range: 2.0 to 3.0 ?? High intensity warfarin therapeutic rang e: 2.5 to 3.5 Specimen Anatomical Collection Method Collection Time Receive d Time (Source) Location / / Volume Laterality Blood (Blood, 06/30/2021 2:27 PM 06/30/19 2:46 Venous) AIRWAYS OPERATIONS SPECIALIST PM AIRWAYS OPERATIONS SPECIALIST Magaly Molina P.A.-C. M.S. LAB BLOOD ADD-ON Performing Organization Address City/State/ZIP Code Phon e Number [facility]- [facility] [place] [address] [place] [address] System in [place] [address] [facility] documented in this encounter Visit Diagnoses Diagnosis Cirrhosis Alcoholic (HCC) - Primary documented in this encounter Care Teams Animal Damage Control Agent Relationship Specialty Start Date End Date Elsewhere, Pcp PCP - General Family Medicine 03/10/20 11/30/21 Erivn Schroeder MD Referring Provider Family Medicine 03/24/21 [facility] [address] [place] [address] documented as of this encounter
--- OUTSIDE RECORDS SUMMARY | 2021-12-28 23:33 | XMS_ITS | Encounter Summary ---
:1990 Author Organization [facility] Address [address] [place] [address] Care Team Providers Name Role Phone Elsewhere, Pcp Primary Care Provider Unavailable Encounter Details Date Type Department Care Team Description 06/24/2021 Lab Department of [facility] Sera Morgan, En counter For Medicine in [place], P.A.-C. Preproc edural Laboratory [place] Examination (COVID-19) [address] [place] [phone] Social History Tobacco Use Types Packs/Day [...] or relatives? How often do you attend anabaptist or Never 2021 church services? 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 [address] [place] [phone] (Gwendolyn rk) 01/12/2022 Appointment Laboratory Medicine Matthew Jerome M.B.B.S., M.D. [address] [place] [phone] (Gwendolyn rk) 01/12/2022 Appointment Laboratory Medicine Adeline Frazier M.D., Ph.D. [address] [place] [phone] (Wo rk) 01/13/2022 Telemedicine Transplant Joel Tan L.I.C.S.W., M.S. W. [address] [place] [phone] (Gwendolyn rk) 01/13/2022 Telemedicine Transplant Matthew Jerome M.B.BSumaSLilian Moise [address] [place] [phone] (Wo rk) 01/13/2022 Telemedicine Transplant Adeline Frazier M.D., Ph.D. [address] [place] [phone] (Wo rk) 01/28/2022 Office Visit Gastroenterology and Matthew Jerome, Hepatology Lilian Santillan [address] [place] [phone] (Wo rk) Scheduled Procedures Name Priority Associated Diagnoses Date/Time ESOPHAGOGASTRODUODENOSCOPY Cirrhosis Alc oholic (HCC) Hypertension Portal (HCC) ESOPHAGOGASTRODUODENOSCOPY Cirrhosis Alc oholic (HCC) Ascites Anemia Macrocytic Thrombocytopenia (HC C) Deficiency Coagulation Acquired (HCC) documented as of this encounter Procedures Procedure Name Priority Date/Time Associated Diagnosis Comme nts SARS CORONAVIRUS-2 Routine 06/24/2021 3:50 PM Encounter For Re sults for this RNA, V PRESS ASSISTANT Preprocedural procedure are in Laboratory Examination the r esults (COVID-19) section. documented in this encounter Results SARS Coronavirus-2 RNA, V Asymptomatic (06/24/2021 3:50 PM PRESS ASSISTANT) [facility] Method Time Signature SARS-CoV-2 Swab, 06/24/2021 MKTO Specimen Nasopharynx 10:05 PM Source PRESS ASSISTANT SARS CoV-2 Undetected Undetected 06/24/2021 MKTO RNA, TMA 10:05 PM PRESS ASSISTANT Comment: SARS-CoV-2 RNA absent. This result does not rule out COVID-19 in the patient, as the sensitivity of the test depends o n the timing of the specimen collection and the quality of the specim en. Result should be correlated with patient's history and clinical presentat ion. ----ADDITIONAL INFORMATION---- This molecular amplification test was pe rformed using the Aptima SARS-CoV-2 assay ([employer] on the [employer] tem under emergency use authorization (EUA) by the U.S. Food and Drug Administ ration. Fact sheets for this EUA assay can be fo und at the following links: For Healthcare Providers: https://www.fd a.gov/media/386890/download For Patients: https://www.fda.gov/media/ 551573/download Specimen Anatomical Collection Method Collection Time Receive d Time (Source) Location / / Volume Laterality Varies 06/24/2021 3:50 PM 5:05 (Nasopharynx) PRESS ASSISTANT PM PRESS ASSISTANT Sera Morgan P.A.-C. LAB MICROBIOLOGY - GENERAL O RDERABLES Performing Organization Address City/State/ZIP Code Phon e Number [facility]- [address] [place] [address] [place] [address] System [address] documented in this encounter Visit Diagnoses Diagnosis Encounter For Preprocedural Laboratory E xamination (COVID-19) documented in this encounter Care Teams Vendor Management Consultant Relationship Specialty Start Date End Date Elsewhere, Pcp PCP - General Family Medicine 03/10/20 11/30/21 Ervin Schroeder MD Referring Provider Family Medicine 03/24/[address] [place] [address] documented as of this encounter
--- OUTSIDE RECORDS SUMMARY | 2021-12-28 23:35 | XMS_ITS | Encounter Summary ---
:1990 Author Organization [facility] Address [address] [place] [address] Care Team Providers Name Role Phone Elsewhere, Pcp Primary Care Provider Unavailable Reason for Visit Reason Onset Date Comments Outpatient COVID-19 Testing 03/10/2020 Encounter Details Date Type Department Care Team Description 03/10/2020 External Outreach Department of Pedro Evans Infect ion Upper Internal Medicine in J, D.O. Respiratory (Primary [place], [place] [address]) [address] [place], [place] [phone] Social History Tobacco Use Types Packs/Day Years Used Date Smoking Tobacco: Never Assessed Alcohol Habits Answer Date Recorded How often [...] do you attend taoist or Never 2021 episcopal services? Do you [...] or slept in a assisted (including now)? Sex Assigned at Date Recorded Female 04/12/2021 7:39 PM [employer] OPER[employer] documented as of this encounter Progress Notes Yue Cheng R.N. - 03/10/2020 3:17 PM CST Encounter created for the drive-through COVID-19 testing. R CANE PLANTING EQUIPMENT OPERATOR documented in this encounter Plan of Treatment Upcoming Encounters Date Type Specialty Care Team Description 01/07/2022 Office Visit Community Internal Medicine Ranjit Red P.A.-C. [address] [place] [address] (Gwendolyn rahman) 01/12/2022 Appointment Laboratory Medicine Matthew Jerome M.B.BSumaS., M.D. [address] [place] [address] (Gwendolyn rahman) 01/12/2022 Appointment Laboratory Medicine Adeline Frazier M.D., Ph.D. [address] [place] [phone] (Gwendolyn rahman) 01/13/2022 Telemedicine Transplant Joel Tan L.I.C.S.W., M.S. W. [address] [place] [phone] (Wo rk) 01/13/2022 Telemedicine Transplant Matthew Jerome M.B.B.S., M.Slick. [address] [place] [phone] (Wo rk) 01/13/2022 Telemedicine Transplant Adeline Frazier M.D., Ph.D. [address] [place] [phone] (Wo rk) 01/28/2022 Office Visit Gastroenterology and Matthew Jerome, Hepatology Tyrell, M.Jeri [address] [place] [phone] (Wo rk) Scheduled Procedures Name Priority Associated Diagnoses Date/Time ESOPHAGOGASTRODUODENOSCOPY Cirrhosis Alc oholic (HCC) Hypertension Portal (HCC) ESOPHAGOGASTRODUODENOSCOPY Cirrhosis Alc oholic (HCC) Ascites Anemia Macrocytic Thrombocytopenia (HC C) Deficiency Coagulation Acquired (HCC) documented as of this encounter Procedures Procedure Name Priority Date/Time Associated Diagnosis Comme nts SARS CORONAVIRUS-2 Routine 03/10/2020 4:10 PM Infection Upper Results for this RNA, V [employer] OPERATOR Respiratory procedure are i n the results section. documented in this encounter Results SARS Coronavirus-2 RNA, V Symptomatic (03/10/2020 4:10 PM [employer]QUIPMENT OPERATOR) [facility] Method Time Signature SARS-CoV-2 Swab, 03/11/2020 MKTO Specimen Nasopharynx 12:38 PM Source [employer]MENT OPERATOR SARS CoV-2 Undetected Undetected 03/11/2020 MKTO RNA, TMA 12:38 PM [employer] EQUIPMENT OPERATOR Comment: SARS-CoV-2 RNA absent. This result does not rule out COVID-19 in the patient, as the sensitivity of the test depends o n the timing of the specimen collection and the quality of the specim en. Result should be correlated with patient's history and clinical presentat ion. ----ADDITIONAL INFORMATION---- This test is performed using the Aptima SARS-CoV-2 assay ([employer] which has received Emergency Use Authori zation (EUA) by the U.S. Food and Drug Administration. Fact sheets for this Emergency Use Autho rization (EUA) assay can be found at the following links: For Healthcare Providers: https://www.[employer] a.gov/media/727371/download For Patients: https://www.fda.gov/media/ 497311/download Specimen Anatomical Collection Method Collection Time Receive d Time (Source) Location / / Volume Laterality Varies 03/10/2020 4:10 PM 0 (Nasopharynx) [employer] OPERATOR 11:20 PM [employer] EQUIPMENT OPERATOR Pedro Evans D.O. LAB MICROBIOLOGY - GENERAL O RDERABLES Performing Organization Address City/State/ZIP Code Phon e Number [facility]- [address] [place] [address] [place] [address] System in [address] documented in this encounter Visit Diagnoses Diagnosis Infection Upper Respiratory - Primary documented in this encounter Additional Health Concerns Infection Onset Date Last Indicated Resolved Time COVID19 Pending 03/10/2020 03/10/2020 03/11/2020 12:40 PM [employer] E[employer] OPERATOR documented as of this encounter Care Teams Construction Field Engineer Relationship Specialty Start Date End Date Elsewhere, Pcp PCP - General Family Medicine 03/10/20 11/30/21 documented as of this encounter
--- OUTSIDE RECORDS SUMMARY | 2021-12-28 23:35 | XMS_ITS | Encounter Summary ---
:[address] [facility] Address [address] [place] [address] Care Team Providers Name Role Phone Elsewhere, Pcp Primary Care Provider Unavailable Reason for Referral Outpatient (Routine) - Closed Specialty Diagnoses / Referred By Contact Referred To Procedures Contact Gastroenterology and Kerry Naranjo, [facility] Hepatology YARITZA, M.S.N., R.N. [address] [place] [address] Referral ID Status Reason Start Date Expiration Date Visits Requ ested Visits Authorized [id number] Closed 03/15/2021 03/15/2022 1 1 DUMPER Reason for Visit Auth/Cert Specialty Diagnoses / Procedures Referred By Contact Refer red To Contact Diagnoses Change Mental Status Liver failure Procedures Referral ID Status Reason Start Date Expiration Date Visits Requ ested Visits Authorized [id number] 1 1 Encounter Details Date Type Department Care Team Description 03/12/2021 - Hospital Encounter [facility] Antwan Lazo D.O. [address] [place] [phone] Change Mental Status (Primary Dx); 03/24/2021 [facility] Ulises Valle M.B.BSumaSSuma [address] [place] [address] Cirrhosis Alcoholic (HCC) [facility] [address] [place] [phone] Floor [address] [place] [address] Social History Tobacco Use Types [...] do you attend jewish or Never 2021 scientology services? Do you belong to any clubs or No 07/17/2021 organizations such as jewish groups, unions, fraternal or athletic groups, or [...] or slept in a m[facility]p (including now)? Sex Assigned at Date Recorded Female 04/12/2021 7:39 PM PAN DUMPER documented as of this encounter Last Filed Vital Signs Vital Sign Reading Time Taken Comments Blood Pressure 114/84 03/24/2021 6:18 AM PAN DUMPER Pulse 101 03/24/2021 6:18 AM PAN DUMPER Temperature 37.5 ??C (99.5 ??F) 03/24/2021 6:18 AM PAN DUMPER Respiratory Rate 16 03/23/2021 10:36 PM PAN DUMPER Oxygen Saturation 97% 03/24/2021 6:18 AM PAN DUMPER Inhaled Oxygen Concentration - - Weight 56.6 kg (124 lb 12.5 oz) 03/23/2021 6:35 AM PAN DUMPER Height 157.5 cm (5' 2) 03/12/2021 6:15 AM PAN DUMPER Body Mass Index 22.82 03/12/2021 6:15 AM PAN DUMPER documented in this encounter Discharge Summaries Darian Thomas M.D., J.D. - 03/24/2021 8:11 AM CST DISCHARGE SUMMARY BRIEF OVERVIEW Discharge Hospital: Hospital: [facility] Discharge Provider: No att. providers found Primary Care Providers: Elsewhere, Pcp (General) No address on file Discharge Provider Team: [facility] ([facility]) [facility] Primary Care Provider Phone Number: None Primary Care Provider Fax Number: None Admission Date: 03/12/2021 Discharge Date: 03/24/21 PRINCIPAL DIAGNOSIS Decompensated cirrhosis SECONDARY DIAGNOSES Altered Mental Status Possible Manic Episode Grade 1 Hepatic Encephalopathy Alcoholic Cirrhosis Indefinite SBP Prophylaxis Hyperbilirubinemia Coagulopathy Acute Hypoxic Respiratory Failure Right To Left Atrial Shunt Newly Diagnosed Pfo Severe Left Atrial Enlargement Normocytic Anemia Thrombocytopenia Compensated Metabolic Acidosis DISCHARGE DISPOSITION Home or Self Care [1] ACTIVE ISSUES REQUIRING FOLLOW UP Malpositioned IUD seen on CT scan. Newly diagnosed PFO with [id number] atrial shunt. Severe left atrial enlargement. Consider cardiology follow-up as outpatient. Electrolyte derangements. Would recommend renal panel around every other week. Anemia. Would recommend close follow-up of patient's hemoglobin and coags. OUTPATIENT FOLLOW UP For appointment details refer to your Patient Appointment Guide. TEST RESULTS PENDING AT DISCHARGE Pending Labs Order Current Status Vitamin A and Vitamin E Collected (03/24/21614) Zinc Collected (03/24/21614) Patient Status In process DETAILS OF HOSPITAL STAY REASON FOR ADMISSION Acute Hypoxic Respiratory Failure, Decompensated Liver Cirrhosis HOSPITAL COURSE This is a 30-year-old female with PMH of recently diagnosed decompensated liver cirrhosis as well asrecurrent pancreatitis likely due to history of alcohol use disorder. There is also a history of unintentional acetaminophen overdose. Patient was brought to an outside facility by her boyfriend and mother after she was found unresponsive and having soiled herself at home. Due to worsening altered mental status and requirement of high-flow nasal cannula, patient was transferred from the outside facility to our ICU where she was started on broad-spectrum IV antibiotics, pressors, octreotide, lactulose, rifaximin, and albumin infusion. She was intubated for around 48 hours. Diagnostic paracentesis was performed but unfortunately there was bleeding at the site due to patient's coagulopathy the bleeding ultimately did resolve after sutures were placed, however patient required 5 units of PRBC and 4 units of FFP over 24 hours. She was transferred to the floor after hemoglobin stabilized and she no longer required pressors and octreotide. Given her altered mental status and manic-like behavior, we consulted Psychiatry to weigh in on thispossibly being a 1st manic episode. They did agree that patient's behaviors were similar to such an event, and recommended outpatient follow-up with patient's PCP and/or a psychiatrist if the PCP stillnoticed changes at follow-up. Patient had a high SAAG without evidence of elevated total protein in the peritoneal fluid, suggesting portal hypertension as the cause of the ascites. We started the recommended oral spironolactone tofurosemide ratio for smaller patients of 50 mg to 20 mg to help with the ascites with good results. The fluid was sent for culture and was negative. However, GI recommends patient be on SBP prophylaxisindefinitely. Her MELD-Na was consistently in the 23-25 range throughout this admission. Hepatitis A, hepatitis B, and hepatitis C were all ruled out. She has not had a liver biopsy performed as outpatient. Our GI team was happy to see her as an outpatient for ongoing follow-up. We did notice a persistent compensated metabolic acidosis in the setting of multiple bowel movementsper day while on lactulose. As such we started her on scheduled sodium bicarb. Would recommend continued monitoring in the outpatient setting. During this hospitalization, nursing noted that patient had an apparent epileptic episode lasting a few seconds during which her eyes rolled back and she had some possible tonic clonic behavior. There was no loss of bowel/bladder control. There did not seem to be a postictal period. We consulted Neurology who obtained a CT head and EEG, both of which were unremarkable. There were no similar episodes the remainder of the hospitalization. Neurology did not feel like any additional epileptic workup waswarranted. We checked her vitamin A, vitamin D, and vitamin E levels, as these patients are typically deficientin the fat soluble vitamins. Only the vitamin D had resulted by time patient was discharged and was significantly low. Patient's family was called with permission and instructed to start her on vitamin-D supplementation. We also checked a zinc level which had not yet resulted. These labs will be sent via letter to patient and via the patient portal once they have resulted. We did hear a grade 3/6 systolic murmur heard best over the upper sternal border and ordered a TTE with bubble study. It did show a right to left atrial shunt with a severely enlarged left atrium. We consulted Cardiology who did not think this warranted any further investigation during this admission.PCP may consider having patient follow up with a gold leaf gilder in the outpatient setting. MEDICATIONS CHANGED DURING THIS HOSPITAL STAY Discharge Medications Stopped Medications acetaminophen 325 mg tablet Commonly known as: TYLENOL diphenhydrAMINE 25 mg tablet Commonly known as: BENADRYL gabapentin 100 mg capsule Commonly known as: NEURONTIN omeprazole 20 mg EC tablet Commonly known as: PriLOSEC OTC ondansetron ODT 4 mg disintegrating tablet Commonly known as: ZOFRAN-ODT oxyCODONE 5 mg immediate release tablet Commonly known as: ROXICODONE New Medications Sig Disp Start ciprofloxacin 500 mg tablet Commonly known as: CIPRO Take 1 tablet (500 mg total) by mouth every morning before breakfast Indications: Prophylaxis, medical. 30 tablet March 25, 2021 folic acid 1 mg tablet Take 1 tablet (1 mg total) by mouth daily. 30 tablet magnesium oxide 400 mg (241.3 mg magnesium) tablet Commonly known as: MAG-OX Take 1 tablet (400 mg total) by mouth 2 (two) times a day before breakfast and dinner. 60 tablet pantoprazole 40 mg EC tablet Commonly known as: PROTONIX Take 1 tablet (40 mg total) by mouth every morning before breakfast. 30 tablet rifAXIMin 550 mg tablet Commonly known as: XIFAXAN Take 1 tablet (550 mg total) by mouth 2 (two) times a day Indications: Prophylaxis, medical. 60 tablet sodium bicarbonate 650 mg tablet Take 1 tablet (650 mg total) by mouth 4 (four) times a day. 120 tablet thiamine 100 mg tablet Commonly known as: VITAMIN B1 Take 1 tablet (100 mg total) by mouth daily. 30 tablet Modified Medications Sig Disp Start furosemide 20 mg tablet Commonly known as: LASIX What changed: how much to take Take 1 tablet (20 mg total) by mouth daily. 30 tablet lactulose 20 gram/30 mL solution Commonly known as: CHRONULAC What changed: ?? medication strength ?? how much to take ?? how to take this 45 mL (30 g total) by gastric tube route 3 (three) times a day. 4050 mL Medications To Continue Sig Disp Start spironolactone 50 mg tablet Commonly known as: ALDACTONE Take 1 tablet (50 mg total) by mouth daily. 30 tablet CONSULTS ORDERED DURING THIS ADMISSION IP CONSULT TO GASTROENTEROLOGY IP CONSULT TO PSYCHIATRY & PSYCHOLOGY IP CONSULT TO NEUROLOGY CONDITION AT DISCHARGE stable Discharge instructions were provided to the patient and caregiver(s). Patient was seen and staffed with Dr. Guzman. Darian Thomas MD, [facility] DUMPER Associated attestation - Keerthi Guzman M.D. - 03/25/2021 7:48 AM PAN DUMPER I saw the patient on the day of discharge and agree with the discharge plans and disposition. Liver cirrhosis, probably secondary to alcohol abuse. Continue spironolactone, Lasix, lactulose, rifaximin. High risk for SBP, continue Cipro 500 mg daily indefinitely. Anemia, multifactorial, chronic disease, acute bleeding after the procedure. Status post multiple PRBC transfusion. Elevated secondary to liver disease. Psychiatric disorder, psychiatry cleared patient to be discharged home. Patient has to follow up with her primary care physician and GI for further management. documented in this encounter Discharge Instructions Discharge Instr - Non [place] Follow-UpsHope Keating - 03/24/2021 10:30 AM PAN DUMPER Post Hospital follow-up Dr. Schroeder on: Monday, March 26 at 9:[address] [address] Gastroenterology and Hepatology consult with Dr. Kerry Naranjo on: April 17, 2021 at 3:15pm [address] [address] DUMPER documented in this encounter Medications at Time of Discharge Medication Sig Dispensed Refills Start Date End Date pantoprazole (PROTONIX) Take 1 tablet (40 30 tablet 1 03/24 40 mg EC tablet mg total) by mouth every morning before breakfast. lactulose (CHRONULAC) 20 45 mL (30 g total) 4050 mL 1 05/23/2021 gram/30 mL solution by gastric tube route 3 (three) times a day. rifAXIMin (XIFAXAN) 550 Take 1 tablet (550 60 tablet 1 03/0405/23/2021 mg tabletIndications: mg total) by mouth Prophylaxis, medical 2 (two) times a day Indications: Prophylaxis, medical. sodium bicarbonate 650 mg Take 1 tablet (650 120 tablet 1 05/23/2021 tablet mg total) by mouth 4 (four) times a day. thiamine (VITAMIN B1) 100 Take 1 tablet (100 30 tablet 1 05/23/2021 mg tablet mg total) by mouth daily. ciprofloxacin (CIPRO) 500 Take 1 tablet (500 30 tablet 11 11/11/2021 mg tabletIndications: mg total) by mouth Prophylaxis, medical every morning before breakfast Indications: Prophylaxis, medical. folic acid 1 mg tablet Take 1 tablet (1 mg 30 tablet 1 03/0407/27/2021 total) by mouth daily. furosemide (LASIX) 20 mg Take 1 tablet (20 30 tablet 1 03/0408/03/2021 tablet mg total) by mouth daily. magnesium oxide (MAG-OX) Take 1 tablet (400 60 tablet 1 12/02/2021 400 mg (241.3 mg mg total) by mouth magnesium) tablet 2 (two) times a day before breakfast and dinner. spironolactone Take 1 tablet (50 30 tablet 1 03/24/202107/2021 (ALDACTONE) 50 mg tablet mg total) by mouth daily. documented as of this encounter Progress Notes Nola Marcos R.N. - 03/24/2021 12:18 PM CST SUBJECTIVE Care Management following patient for discharge planning and care coordination. OBJECTIVE Admitted 03-12-21: 1. Change Mental Status 2. Cirrhosis Alcoholic (HCC) ASSESSMENT / PLAN ASSESSMENT manager of sustainability participated in bedside team rounds with bedside nurse Hope LEROY and Dr. Guzman. Patient was cleared to discharge Julissa Hart [facility] states there are no needs and no f/u needed for mental health as an outpatient. Dr. Guzman reports patient will be ready for discharge on 03-24-21. Patient will discharge to home on 03-24-21. S.O. will provide transportation at approximately 1200. PLAN 1. Care team reporting patient is expected to discharge home when medically stable. 2. There are no identified patient case coordinator needs at this time. 3. manager business will assist as needed and requested. Nola Marcos R.N. 03/24/21 DUMPER Zenobia Dickson, Pharm.D., R.Ph. - 03/23/2021 4:13 PM CST Pharmacist Progress Note Reason for admission: AMS and hypoxia PMH: recently diagnosed liver cirrhosis (unknown etiology, possibly alcohol) - elevated LFTs + ascites (4 L removed from paracentesis ~3 weeks ago), recurrent pancreatitis, ADHD, marijuana use OBJECTIVE Home medications: ?? Held: gabapentin ?? Changed: increased home lactulose from 20g to 30g TID. Patient own medications: n/a Prophylaxis: DVT: Cirrhosis. INR of 2.8. No need for heparin. SUP: pantoprazole 40mg PO BID 03/12 Blood cx: negative 03/12 pleural fluid: negative ASSESSMENT / PLAN 1. Liver cirrhosis/ascites/encephalopathy ?? Lactulose 30g PO TID ?? Rifaximin 550mg PO BID ?? Pantoprazole 40 mg PO BID ?? Folic acid 1mg daily ?? Thiamine 100mg PO daily ?? Furosemide 20 mg PO daily ?? Spironolactone 50 mg PO daily 2. Intra-abdominal infection/SBP PPX ?? Ciprofloxacin 500 mg po daily ?? Completed 6 day course of Zosyn on 03/17 ?? Received ceftriaxone 03/18-03/19 3. Tox screen ?? Unconfirmed positive for oxycodone and THC; negative for all other ?? Ethanol <10 Changes to medications anticipated at discharge: oral SBP prophylaxis Zenobia Dickson Pharm.D., R.Ph. DUMPER Darian Thomas M.D., J.D. - 03/23/2021 7:25 AM CST SUBJECTIVE INTERVAL HISTORY Nursing notes reviewed. No acute events overnight. Patient reports sleeping relatively well last night. She's feeling well this morning and is curious about when she'll be able to discharge. Denies anyshortness of breath, abdominal pain. She has no further questions or concerns. REVIEW OF SYSTEMS Full ROS performed, positives as per HPI, otherwise negative. OBJECTIVE Admission Weight: 54.2 kg Current Weight: 56.6 kg VITAL SIGNS Temperature: [37.1 ??C-37.9 ??C] 37.9 ??C Heart Rate: [98-102] 102 Resp Rate: [19-23] 23 Blood Pressure: (111-120)/(66-76) 119/68 SpO2: [95 %-97 %] 95 % Weight: [56.6 kg] 56.6 kg BMI (Calculated): [22.8 kg/m??] 22.8 kg/m?? Pulse Rate: [104-107] 104 PHYSICAL EXAM Gen: no acute distress, pleasant, cooperative with exam HEENT: normocephalic, external ears normal, scleral icterus, nares patent, moist mucous membranes Heart: RRR, grade 3/6 systolic murmur heard best over upper sternal border Lungs: CTAB Abd: soft, nontender Ext: warm and well perfused Skin: jaundiced Psych: oriented x3; pressured speech; flight of ideas; no slurred speech DIAGNOSTICS No results found. Recent Results (from the past 24 hour(s)) Magnesium Collection Time: 03/22/21 8:33 AM Result Value Magnesium, P 1.6 (L) Phosphorus Inorganic Collection Time: 03/22/21 8:33 AM Result Value Phosphorus (Inorganic), P 2.7 CBC without Differential Collection Time: 03/22/21 8:38 AM Result Value Hemoglobin 7.2 (L) Hematocrit 22.6 (L) Erythrocytes 2.39 (L) MCV 94.6 RBC Distrib Width 21.6 (H) Platelet Count 98 (L) Leukocytes 9.0 Comprehensive Metabolic Panel Collection Time: 03/22/21 8:38 AM Result Value Potassium, P 3.4 (L) Sodium, P 139 Chloride, P 105 Bicarbonate, P 19 (L) Anion Gap, P 15 BUN (Blood Urea Nitrogen), P 6 Creatinine, P 0.40 (L) eGFR-Black/ >90 eGFR Non-Black/ >90 Calcium, Total, P 10.1 (H) Glucose, P 115 Protein, Total, P 6.2 (L) Albumin, P 5.2 (H) Aspartate Aminotransferase (AST), P 52 (H) Alkaline Phosphatase, P 59 Alanine Aminotransferase (ALT), P 20 Bilirubin, Total, P 5.9 (H) Prothrombin Time (PT) Collection Time: 03/22/21 8:38 AM Result Value Prothrombin Time, P 30.5 (H) INR 2.7 Ammonia Collection Time: 03/22/21 8:38 AM Result Value Ammonia, P 60 (H) Lactate, B Collection Time: 03/22/21 8:38 AM Result Value Lactate, B 2.3 (H) ASSESSMENT / PLAN #Altered Mental Status, waxing and waning #Possible Manic Episode, waxing and waning #Grade I Hepatic Encephalopathy, waxing and waning Exhibiting possible manic like behavior more so than yesterday but overall stable. --psych was consulted and recommends outpatient follow-up regarding necessity of a mood stabilizer --Zyprexa discontinued per psych --cont. Lactulose 30 mg t.i.d. --cont. Rifaximin 550 mg b.i.d. #Alcoholic Cirrhosis #Abdominal Ascites s/p paracentesis #SBP Prophylaxis Indefinitely #Hyperbilirubinemia #Coagulopathy GI has signed off. Patient has a high SAAG without evidence of elevated total protein in peritoneal fluid, suggesting portal hypertension as the cause of the ascites. MELD-Na today is 25. She is on therecommended oral spironolactone to furosemide ratio in smaller patients of 50mg to 20mg to help withascites. No liver biopsy performed as outpatient as of yet, but highly likely due to alcohol use disorder. Patient obviously will need a liver transplant, but foreseeable future regarding candidacy is unclear given history of alcohol abuse. INR 2.8 today. --cont. ciprofloxacin 500mg qday indefinitely for SBP prophylaxis --cont. spironolactone 50mg po qday --cont. furosemide 20mg po qday --cont. Lactulose 30 mg t.i.d. --cont. Rifaximin 550 mg b.i.d. --repeat CMP in the a.m. #Acute Hypoxic Respiratory Failure-resolved #Right to Left Atrial Shunt #Newly diagnosed PFO #Severe Left Atrial Enlargement Patient able to maintain sats on room air. Lung sounds clear. TTE on 03/19/2021 evidenced right to left atrial shunt with PFO and severely enlarged left atrium. Cardiology was curbsided and recommendedthat we do not pursue any additional evaluation or therapy at this time. #Normocytic Anemia #Coagulopathy Likely due to patient's gastropathy in the setting of coagulopathy. Hemoglobin down to 6.8 again today. Will transfuse blood again today. Will continue to trend hemoglobin. CT abdomen pelvis 03/21/2021howed improvement in abdominal ascites with possible very small bleed given alteration in diffusiongradient. Patient's abdominal exam remains unremarkable. --Transfuse 1 unit pRBC --repeat CBC in the a.m. #Thrombocytopenia Stable. Transfuse platelets if less than 50. #Compensated Metabolic Acidosis Patient likely dumping bicarb due to frequent BMs on lactulose. --increase bicarb tablets to 650 mg q.i.d. --repeat CMP in the a.m. #Pseudohypocalcemia Ionized calcium normal. PTH normal. Will follow up on vitamin-D level. #Hypokalemia Replete per protocol. Continue to monitor. #Possible Epileptic Spell, resolved Neurology was consulted and obtained a CT head and EEG, both of which were unremarkable. There have been no additional similar episodes. No further epileptic workup is warranted at this time. Patient seen and staffed with Dr. Guzman. Darian Thomas MD [facility] Res[facility] DUMPER Associated attestation - Keerthi Guzman M.D. - 03/23/2021 2:26 PM PAN DUMPER I saw and evaluated the patient, participating in the judd portions of the service. I reviewed the resident/fellow???s note. I agree with the resident/fellow???s findings and plan. Hemoglobin dropped to 6.8. Will transfuse 1 PRBC today. If patient is stable tomorrow can be discharged home. Psychiatric cleared patient to be discharged home. Bernarda Manning APRN, C.N.P., D.N.P. - 03/22/2021 3:04 PM CST PSYCHIATRY INPATIENT PROGRESS NOTE SUBJECTIVE INTERVAL HISTORY: Patient was discussed with treatment team. Per nursing notes, patient is alert andoriented. She is cooperative. She continues to be restless and speaking rapidly. Chart reviewed. Case discussed with Dr. Ram Met with patient in her hospital room, along with Dr. Ram, and patient's significant other Loibto. Patient says she is doing a lot better. She said she has sleepier today but feels that ???the better I get, the busier I get. ?? She says this past week she was feeling confused. She did not know where she was, what State she was in or what the day was. She says now she is more aware of what is going on. She says that she was playing ???harmless game with staff and did not think she was in the hospital. She thought that staff were tricking her into shooting rubbing alcohol in to herself. She now knows that this is not true. She was confused about 1 of the staff members who looks like her friend maritza reginaldo now knows that it was not her. She did insist that she saw a nurse and assistant women's rowing coach friend of hers, Stephanie. She says this was true and she was not confused about that. She says she emotionally doing ???good. ?? She says she is not really sad and is actually happy. She says she does not feel too happy or irritable. She denies any racing thoughts. She denies any auditory or visual hallucinations. She denies any concerns for her safety. She denies any suicidal thoughts. She says she is no longer stuttering or stammering. She insists that this was due to the caffeine that she had drink that day. Shesays she does not normally drink caffeine and had had a large peppermint mocha on Wednesday when psychiatry saw her last. She said the caffeine made her talk more rapidly. She says she has been sleeping really well. She sleeps very well at night and sometimes takes naps during the day. She is eating more and more. She says she has a mostly vegetarian diet. She says she is feeling ready to get back home when her medical team clears her. She says yesterday she had a CT of her head and an EEG which came back normal. She says she is still dealing with the emotions surrounding being intubated and unconscious in the ICU. She said she had become so sick at home that she started forgetting to take her lactulose, and this caused her ammonia levels to be high. She says that when she goes home she understands she will need to be with someone. She says that she currently lives with her boyfriend. She says she plans to follow-up with her primary care provider after she discharges from the hospital. She is not having any side effects from the Zyprexa. She feels that it is not needed for her mood. COLLATERAL: Spoke with patient's significant other, Lobito, who was present in the interview. He says patient is back to normal. REVIEW OF SYSTEMS Unremarkable except as documented in interval history. ALLERGIES/CONTRAINDICATIONS Allergies Allergen Reactions ??? Azithromycin Other (see comments) Unknown CURRENT MEDICATIONS Medications Report Scheduled Medication Ordered Dose/Rate, Route, Frequency Last Action ciprofloxacin tablet 500 mg (CIPRO) 500 mg, oral, Daily before breakfast Given, 500 mg at 03/22 0702 folic acid tablet 1 mg 1 mg, oral, Daily Given, 1 mg at 03/22 1022 furosemide tablet 20 mg (LASIX) 20 mg, oral, Daily Given, 20 mg at 03/22 1022 lactulose solution 30 g (CHRONULAC) 30 g, gastric tube, TID Given, 30 g at 03/22 1020 melatonin tablet 6 mg 6 mg, oral, Daily at bedtime Given, 6 mg at 03/[address] tablet 40 mg (PROTONIX) 40 mg, oral, BID Given, 40 mg at 03/22 1022 potassium chloride ER tablet 40 mEq (KLORCON/K-TAB) 40 mEq, oral, Once Ordered rifAXIMin tablet 550 mg (XIFAXAN) 550 mg, oral, BID Given, 550 mg at 03/22 1022 sodium bicarbonate tablet 650 mg 650 mg, oral, TID Given, 650 mg at 03/22 1022 sodium chloride 0.9 % injection 5-15 mL 5-15 mL, IV, Q12H LAWRENCE Given, 10 mL at 03/22 1030 spironolactone tablet 50 mg (ALDACTONE) 50 mg, oral, Daily Given, 50 mg at 03/22 1022 thiamine tablet 100 mg (VITAMIN B1) 100 mg, oral, Daily Given, 100 mg at 03/22 102 PRN Medication Ordered Dose/Rate, Route, Frequency Last Action LORazepam injection 1 mg (ATIVAN) 1 mg, IV, Q4H PRN Ordered naloxone injection 0.2 mg 0.2 mg, IV, PRN Ordered sodium chloride 0.9 % injection 10 mL 10 mL, IV, PRN Given, 10 mL at 03/17 0648 sodium chloride 0.9 % injection 5 mL 5 mL, IV, PRN Ordered OBJECTIVE VITAL SIGNS BP 111/69 (BP Location: Left arm;Upper) Pulse (!) 116 Temp 37.9 ??C (Temporal) Resp 18 Ht 157.5 cm Wt 55.9 kg SpO2 94% BMI 22.54 kg/m?? LABS Recent Results (from the past 72 hour(s)) Prothrombin Time (PT) Collection Time: 03/20/21 7:40 AM Result Value Prothrombin Time, P 27.0 (H) INR 2.4 Comprehensive Metabolic Panel Collection Time: 03/20/21 7:40 AM Result Value Potassium, P 3.3 (L) Sodium, P 142 Chloride, P 108 (H) Bicarbonate, P 20 (L) Anion Gap, P 14 BUN (Blood Urea Nitrogen), P 4 (L) Creatinine, P 0.35 (L) eGFR-Black/ >90 eGFR Non-Black/ >90 Calcium, Total, P 10.2 (H) Glucose, P 107 Protein, Total, P 6.3 Albumin, P 5.3 (H) Aspartate Aminotransferase (AST), P 38 Alkaline Phosphatase, P 50 Alanine Aminotransferase (ALT), P 11 Bilirubin, Total, P 6.0 (H) CBC without Differential Collection Time: 03/20/21 7:40 AM Result Value Hemoglobin 7.6 (L) Hematocrit 23.4 (L) Erythrocytes 2.54 (L) MCV 92.1 RBC Distrib Width 20.5 (H) Platelet Count 94 (L) Leukocytes 5.9 Lactate, B Collection Time: 03/20/21 7:40 AM Result Value Lactate, B 1.0 pH Collection Time: 03/20/21 7:40 AM Result Value pH 7.48 (H) Calcium, Ionized Collection Time: 03/20/21 7:40 AM Result Value Calcium, Ionized, B 5.07 Magnesium Collection Time: 03/20/21 7:40 AM Result Value Magnesium, P 2.3 Blood Gas with Coox, Venous Collection Time: 03/20/21 7:40 AM Result Value Venous pO2 56 Venous pCO2 30 (L) Venous pH 7.48 (H) Venous Base Excess -1 HCO3 22 Hemoglobin, B 7.8 (L) O2Hb 88.2 COHb 1.8 MetHb 0.6 CtO2 9.7 Phosphorus Inorganic Collection Time: 03/20/21 7:40 AM Result Value Phosphorus (Inorganic), P 3.1 Glucose, POCT Collection Time: 03/20/21 9:03 PM Result Value Glucose, POCT, B 131 CBC with Differential, Blood Collection Time: 03/20/21 10:32 PM Result Value Hemoglobin 7.5 (L) Hematocrit 22.5 (L) Erythrocytes 2.44 (L) MCV 92.2 RBC Distrib Width 20.9 (H) Platelet Count 84 (L) Leukocytes 8.4 Neutrophils 6.38 Lymphocytes 1.10 Monocytes 0.75 Eosinophils 0.10 Basophils <0.03 CK (Creatine Kinase) Collection Time: 03/20/21 10:32 PM Result Value Creatine Kinase, P 40 Ammonia Collection Time: 03/20/21 10:32 PM Result Value Ammonia, P 63 (H) Comprehensive Metabolic Panel Collection Time: 03/20/21 10:32 PM Result Value Potassium, P 3.6 Sodium, P 141 Chloride, P 107 Bicarbonate, P 17 (L) Anion Gap, P 17 (H) BUN (Blood Urea Nitrogen), P 4 (L) Creatinine, P 0.43 (L) eGFR-Black/ >90 eGFR Non-Black/ >90 Calcium, Total, P 10.6 (H) Glucose, P 117 Protein, Total, P 6.8 Albumin, P 5.6 (H) Aspartate Aminotransferase (AST), P 56 (H) Alkaline Phosphatase, P 59 Alanine Aminotransferase (ALT), P 21 Bilirubin, Total, P 6.0 (H) Lactate, B Collection Time: 03/20/21 10:32 PM Result Value Lactate, B 4.1 (H) Prothrombin Time (PT) Collection Time: 03/21/21 5:43 AM Result Value Prothrombin Time, P 29.0 (H) INR 2.6 CBC without Differential Collection Time: 03/21/21 5:43 AM Result Value Hemoglobin 7.0 (L) Hematocrit 21.2 (L) Erythrocytes 2.35 (L) MCV 90.2 RBC Distrib Width 21.1 (H) Platelet Count 91 (L) Leukocytes 7.8 Lactate, B Collection Time: 03/21/21 5:43 AM Result Value Lactate, B 1.7 Comprehensive Metabolic Panel Collection Time: 03/21/21 5:44 AM Result Value Potassium, P 3.8 Sodium, P 141 Chloride, P 108 (H) Bicarbonate, P 19 (L) Anion Gap, P 14 BUN (Blood Urea Nitrogen), P 4 (L) Creatinine, P 0.38 (L) eGFR-Black/ >90 eGFR Non-Black/ >90 Calcium, Total, P 10.3 (H) Glucose, P 104 Protein, Total, P 6.2 (L) Albumin, P 5.2 (H) Aspartate Aminotransferase (AST), P SEE COMMENT Alkaline Phosphatase, P 52 Alanine Aminotransferase (ALT), P 19 Bilirubin, Total, P 5.8 (H) *Note: Due to a large number of results and/or encounters for the requested time period, some results have not been displayed. A complete set of results can be found in Results Review. MENTAL STATUS EXAMINATION: Orientation: Oriented to person, place and time Level of consciousness: Awake and alert Appearance: Age appearing, jaundiced skin Behavior observed: Calm and Interactive, sitting in hospital bed Memory: Intact to interview Estimated intellectual functioning: Average for developmental level Status of concentration: Intact to interview Cooperation: Cooperative Mood: good and happy Affect: Euthymic, anxious Speech: Somewhat rapid but improving, somewhat difficult to interrupt, normal volume and tone. Thought process: Circumstantial Thought content, auditory/visual hallucinations and/or delusions: Denies perceptual disturbance; Judgement: Fair Insight: Fair Motivation for treatment: Fair Suicidal ideation: Denies suicidal ideation Homicidal ideations: Denies homicidal ideation ASSESSMENT / PLAN Catia Carias is a 30 y.o. female With a history of alcohol abuse, admitted with multiple complications from acute on chronic liver failure. Psychiatry consulted to rule out denise On assessment today, patient is still talkative, difficult to interrupt, and slightly circumstantialin thoughts. However, these symptoms have greatly improved over the past few days. She denies any suicidal thoughts, racing thoughts, euphoria, elevated mood, irritability, or depression. She denies any symptoms of psychosis. According to patient's significant other, she is mostly back to baseline. Unclear at this time if symptoms were a 1st episode denise or due possibly to her hepatic encephalopathy. Patient not currently meeting criteria for inpatient psychiatric hospitalization. Patient is not assessed to be holdable at this time. DIAGNOSES: 1. Hepatic Encephalopathy 2. Rule out bipolar disorder, current episode manic 3. Alcohol use disorder PLAN: - Will discontinue Zyprexa. Unclear what exactly led to her manic-like symptoms. Weighing the risks versus benefits with her current liver damage, along with her improvement of symptoms, recommending discontinuing Zyprexa. If manic symptoms return, and her function is impaired, she may benefit from discussing restarting a mood stabilizing medication with her primary care provider or an outpatient psychiatrist. - Patient does not currently meet criteria for inpatient psychiatric hospitalization. - From a psychiatry perspective, patient is returning back to her baseline. Okay for her to follow-up with her primary care provider after discharge. If manic- like symptoms return, she can asked to be referred to outpatient Psychiatry. ?? ADMINISTRATIVE BILLING Total time is 35 minutes with greater than 25 minutes spent in counseling and coordination of care. DUMPER Associated attestation - Desire Ram M.B.B.S., M.D. - 03/25/2021 11:28 PM PAN DUMPER I saw and evaluated the patient, participating in the judd portions of the service. I reviewed the JAN's note. I agree with the APPs findings and plan. Darian Thomas M.D., Dhara - 03/22/2021 10:18 AM CST SUBJECTIVE INTERVAL HISTORY Nursing notes reviewed. No acute events overnight. Patient reports sleeping relatively well last night and has been feeling much better throughout today. Denies any shortness of breath, abdominal pain.She has no further questions or concerns. REVIEW OF SYSTEMS Full ROS performed, positives as per HPI, otherwise negative. OBJECTIVE Admission Weight: 54.2 kg Current Weight: 55.9 kg VITAL SIGNS Temperature: [37.2 ??C-37.9 ??C] 37.9 ??C Resp Rate: [18-22] 18 Blood Pressure: (111-117)/(69-78) 111/69 SpO2: [94 %-99 %] 94 % Pulse Rate: [98-116] 116 PHYSICAL EXAM Gen: no acute distress, pleasant, cooperative with exam HEENT: normocephalic, external ears normal, marked scleral icterus, nares patent, moist mucous membranes Heart: RRR, grade 3/6 systolic murmur heard best over upper sternal border Lungs: CTAB Abd: soft, nontender Ext: warm and well perfused Skin: jaundiced Psych: oriented x3; no pressured speech; no flight of ideas; no slurred speech DIAGNOSTICS No results found. Recent Results (from the past 24 hour(s)) CBC without Differential Collection Time: 03/22/21 8:38 AM Result Value Hemoglobin 7.2 (L) Hematocrit 22.6 (L) Erythrocytes 2.39 (L) MCV 94.6 RBC Distrib Width 21.6 (H) Platelet Count 98 (L) Leukocytes 9.0 Comprehensive Metabolic Panel Collection Time: 03/22/21 8:38 AM Result Value Potassium, P 3.4 (L) Sodium, P 139 Chloride, P 105 Bicarbonate, P 19 (L) Anion Gap, P 15 BUN (Blood Urea Nitrogen), P 6 Creatinine, P 0.40 (L) eGFR-Black/ >90 eGFR Non-Black/ >90 Calcium, Total, P 10.1 (H) Glucose, P 115 Protein, Total, P 6.2 (L) Albumin, P 5.2 (H) Aspartate Aminotransferase (AST), P 52 (H) Alkaline Phosphatase, P 59 Alanine Aminotransferase (ALT), P 20 Bilirubin, Total, P 5.9 (H) Prothrombin Time (PT) Collection Time: 03/22/21 8:38 AM Result Value Prothrombin Time, P 30.5 (H) INR 2.7 Ammonia Collection Time: 03/22/21 8:38 AM Result Value Ammonia, P 60 (H) Lactate, B Collection Time: 03/22/21 8:38 AM Result Value Lactate, B 2.3 (H) ASSESSMENT / PLAN #Possible Epileptic Spell, resolved Neurology was consulted and obtained a CT head and EEG, both of which were unremarkable. There have been no additional similar episodes. No further epileptic workup is warranted at this time. #Altered Mental Status, improved #Possible Manic Episode, improved #Grade I Hepatic Encephalopathy, improved She does appear to be improved during rounds this morning. She no longer seems to have any hyperactivity, flight of ideas, pressured speech, slurred speech. Her boyfriend lobito was not present during rounds, so will attempt to touch base with him later on and get his assessment on whether she is closeto her baseline. --psych was consulted and happy to accept patient to the wing if needed once medically stable --will touch base with psych to get their input on appropriateness for discharge --cont. Zyprexa 5 mg q.h.s. p.r.n. per psych --cont. Lactulose 30 mg t.i.d. --cont. Rifaximin 550 mg b.i.d. --repeat ammonia if there is decline in mental status #Alcoholic Cirrhosis #Abdominal Ascites s/p paracentesis #SBP Prophylaxis Indefinitely #Iatragenic Hyperalbuminemia, improving #Hyperbilirubinemia #Coagulopathy GI has signed off. Patient has a high SAAG without evidence of elevated total protein in peritoneal fluid, suggesting portal hypertension as the cause of the ascites. MELD-Na today is 25. She is on therecommended oral spironolactone to furosemide ratio in smaller patients of 50mg to 20mg to help withascites. No liver biopsy performed as outpatient as of yet, but highly likely due to alcohol use disorder. Patient obviously will need a liver transplant, but foreseeable future regarding candidacy is unclear given history of alcohol abuse. Albumin at 5.2. INR 2.7 today. --cont. ciprofloxacin 500mg qday indefinitely for SBP prophylaxis --cont. spironolactone 50mg po qday --cont. furosemide 20mg po qday --cont. Lactulose 30 mg t.i.d. --cont. Rifaximin 550 mg b.i.d. --repeat CMP in the a.m. #Acute Hypoxic Respiratory Failure-resolved #Right to Left Atrial Shunt #Newly diagnosed PFO #Severe Left Atrial Enlargement Patient able to maintain sats on room air. Lung sounds clear. TTE on 03/19/2021 evidenced right to left atrial shunt with PFO and severely enlarged left atrium. Cardiology was curbsided and recommendedthat we do not pursue any additional evaluation or therapy at this time. #Normocytic Anemia, stable #Coagulopathy Likely due to patient's gastropathy in the setting of coagulopathy. Hemoglobin stable at 7.2. Will continue to trend hemoglobin. CT abdomen pelvis yesterday showed improvement in abdominal ascites withpossible very small bleed given alteration in diffusion gradient. Patient's abdominal exam remains unremarkable. --Transfuse if hemoglobin less than 7.0. --repeat CBC in the a.m. --repeat coags in a.m. #Thrombocytopenia Improving. Transfuse platelets if less than 50. #Compensated Metabolic Acidosis Patient likely dumping bicarb due to frequent BMs on lactulose, so we have started bicarb tablets. --cont. bicarb tablets 650 mg t.i.d. --repeat CMP in the a.m. #Pseudohypocalcemia Ionized calcium normal. PTH normal. Will follow up on vitamin-D level. #Hypokalemia Replete per protocol. Continue to monitor. Patient seen and staffed with Dr. Guzman. Darian Thomas MD [facility] DUMPER Associated attestation - Keerthi Guzman M.D. - 03/22/2021 3:19 PM PAN DUMPER I saw and evaluated the patient, participating in the judd portions of the service. I reviewed the resident/fellow???s note. I agree with the resident/fellow???s findings and plan. Discussed with psych, they are signing off patient. Psychiatry is okay to discharge patient home when medically Stable. Hypokalemia and hypomagnesemia will be replaced. Head CT was without any acute findings. EEG without evidence of seizure activities. Ceci Crawford - 03/21/2021 1:33 PM CST Clinical Note Types: Reassessment NUTRITION ASSESSMENT The patient's encephalopathy is improving; is currently conscious and coherent. She is scheduled to undergo a brain scan today. She notes that she is a lactovegetarian, and doesn't eat a lot of animalbi-products. She will eat cow's milk yogurt and cheese, but otherwise takes alternative milks (e.g.almond) with cereal. She will eat soy-based meat alternatives (e.g. tofu chick'n patties), as well as peanut butter toast. Will not take nutritional or protein supplements, including Ensure Clear, but will take fruit smoothies made with added protein. Also claims that she eats a variety of fruits and vegetables (doesn't like mangoes, peaches or tomatoes). Her S.O. brought in fresh fruit that she is keeping on ice in her room. Also mentioned that she really likes hummus. She asked if she could eat baked chips on her 2G Na+ diet. MALNUTRITION ASSESSMENT Non-severe (moderate) Malnutrition (03/21) in the context of Acute Illness or Injury (likely due to progression/complications of liver disease.) based on ASPEN/AND criteria noted below: Weight Loss: Unable to Assess (When asked, the pt. claimed that her UBW is 120-130#.) Average estimated Intake: Less than or equal to 50% for 5 or more days (Pt. reported that she lost her appetite 2-3 weeks ago, but wasn't 100% sure due to the AMS she was experiencing. Also mentioned that she's always been a slow eater and eats small amounts at a time.) Muscle Mass: Moderate Loss Body Fat: Moderate Loss Fluid Accumulation: Moderate-Severe (ascites) PERTINENT LABS: Last 2 results Lab Units 03/21/2154303/20/21223103/20/2140 03/19/21 0739 BUN P mg/dL 4* 4* 4* 6 PHOSPHORUS INORGANIC P mg/dL -- -- 3.1 1.8* CREATININE P mg/dL 0.38* 0.43* 0.35* 0.33* Last 3 results Lab Units 03/21/2144 03/20/21223103/20/2140 03/19/21 1504 03/19/21 0739 SODIUM P mmol/L 141 141 142 -- 140 POTASSIUM P mmol/L 3.8 3.6 3.3* < > 3.1* CHLORIDE P mmol/L 108* 107 108* -- 102 BUN P mg/dL 4* 4* 4* -- 6 CREATININE P mg/dL 0.38* 0.43* 0.35* -- 0.33* PHOSPHORUS INORGANIC P mg/dL -- -- 3.1 -- 1.8* CALCIUM P mg/dL 10.3* 10.6* 10.2* -- 10.6* MAGNESIUM RL mg/dL -- -- 2.3 -- 1.5* < > = values in this interval not displayed. Last 2 results Lab Units 03/21/2154303/20/21223103/20/2140 03/19/21 0739 AST P U/L SEE COMMENT 56* < > 33 ALT P U/L < > 10 SODIUM P mmol/L 141 141 < > 140 ALK PHOS P U/L 52 59 < > 43 AMMONIA mcmol/L -- 63* -- 65* < > = values in this interval not displayed. ANTHROPOMETRICS Height: 157.5 cm Admission Weight: 54.2 kg Weight: 55.9 kg BMI (Calculated): 22.5 kg/m?? Dietary Orders (From admission, onward) Start Ordered 03/15/21 1044 Adult Diet Regular; 2,000 mg Na Diet effective now Question Answer Comment Diet texture: Regular Sodium: 2,000 mg Na 03/15/21 1043 NUTRITION DIAGNOSIS: Inadequate oral intake related to AMS, chronic illness as evidenced by no intake recorded x 6 Malnutrition (undernutrition) related to liver failure as evidenced by ascites NUTRITION PLAN AND INTERVENTIONS: Interventions: Increase nutrient intake with small, frequent meals and/or snacks (Pt. has numerous food preferences and particularities but is willing to take the straw./banana smoothie w/added pro BID (@ lunch and supper). Diet order submitted around noon today.) MONITORING AND EVALUATION: Nutrition Monitoring/Evaluation Monitoring: Meals/Supplement Intake,Weight Status,Mental Status/Confusion,Nausea/Vomiting/Diarrhea,Pertinent Labs DUMPER Darian Thomas M.D., J.D. - 03/21/2021 12:16 PM CST SUBJECTIVE INTERVAL HISTORY Nursing notes reviewed. Per nursing, overnight patient had an apparent epileptic episode for a few seconds during which her eyes rolled back and she had some possible tonic clonic behavior. Possible post-ictal period, however patient states she knew what was going on immediately after the episode. History has been difficult to obtain from patient throughout admission. Denies any shortness of breath, abdominal pain. She has no further questions or concerns. REVIEW OF SYSTEMS Full ROS performed, positives as per HPI, otherwise negative. OBJECTIVE Admission Weight: 54.2 kg Current Weight: 55.9 kg VITAL SIGNS Temperature: [37 ??C-38.2 ??C] 37.1 ??C Heart Rate: [94-110] 94 Resp Rate: [20-27] 20 Blood Pressure: (114-145)/(67-79) 114/67 SpO2: [90 %-96 %] 95 % Flow Rate (L/min): [0 L/min] 0 L/min Pulse Rate: [94-114] 94 PHYSICAL EXAM Gen: no acute distress, pleasant, cooperative with exam HEENT: normocephalic, external ears normal, marked scleral icterus, nares patent, moist mucous membranes Heart: RRR, grade 3/6 systolic murmur heard best over upper sternal border Lungs: CTAB Abd: soft, nontender Ext: warm and well perfused; no asterixis during my exam Skin: jaundiced Psych: oriented x3; pressured speech; flight of ideas; no slurred speech DIAGNOSTICS No results found. Recent Results (from the past 24 hour(s)) Glucose, POCT Collection Time: 03/20/21 9:03 PM Result Value Glucose, POCT, B 131 CBC with Differential, Blood Collection Time: 03/20/21 10:32 PM Result Value Hemoglobin 7.5 (L) Hematocrit 22.5 (L) Erythrocytes 2.44 (L) MCV 92.2 RBC Distrib Width 20.9 (H) Platelet Count 84 (L) Leukocytes 8.4 Neutrophils 6.38 Lymphocytes 1.10 Monocytes 0.75 Eosinophils 0.10 Basophils <0.03 CK (Creatine Kinase) Collection Time: 03/20/21 10:32 PM Result Value Creatine Kinase, P 40 Ammonia Collection Time: 03/20/21 10:32 PM Result Value Ammonia, P 63 (H) Comprehensive Metabolic Panel Collection Time: 03/20/21 10:32 PM Result Value Potassium, P 3.6 Sodium, P 141 Chloride, P 107 Bicarbonate, P 17 (L) Anion Gap, P 17 (H) BUN (Blood Urea Nitrogen), P 4 (L) Creatinine, P 0.43 (L) eGFR-Black/ >90 eGFR Non-Black/ >90 Calcium, Total, P 10.6 (H) Glucose, P 117 Protein, Total, P 6.8 Albumin, P 5.6 (H) Aspartate Aminotransferase (AST), P 56 (H) Alkaline Phosphatase, P 59 Alanine Aminotransferase (ALT), P 21 Bilirubin, Total, P 6.0 (H) Lactate, B Collection Time: 03/20/21 10:32 PM Result Value Lactate, B 4.1 (H) Prothrombin Time (PT) Collection Time: 03/21/21 5:43 AM Result Value Prothrombin Time, P 29.0 (H) INR 2.6 CBC without Differential Collection Time: 03/21/21 5:43 AM Result Value Hemoglobin 7.0 (L) Hematocrit 21.2 (L) Erythrocytes 2.35 (L) MCV 90.2 RBC Distrib Width 21.1 (H) Platelet Count 91 (L) Leukocytes 7.8 Lactate, B Collection Time: 03/21/21 5:43 AM Result Value Lactate, B 1.7 Comprehensive Metabolic Panel Collection Time: 03/21/21 5:44 AM Result Value Potassium, P 3.8 Sodium, P 141 Chloride, P 108 (H) Bicarbonate, P 19 (L) Anion Gap, P 14 BUN (Blood Urea Nitrogen), P 4 (L) Creatinine, P 0.38 (L) eGFR-Black/ >90 eGFR Non-Black/ >90 Calcium, Total, P 10.3 (H) Glucose, P 104 Protein, Total, P 6.2 (L) Albumin, P 5.2 (H) Aspartate Aminotransferase (AST), P SEE COMMENT Alkaline Phosphatase, P 52 Alanine Aminotransferase (ALT), P 19 Bilirubin, Total, P 5.8 (H) ASSESSMENT / PLAN #Possible Epileptic Spell Unclear what the underlying etiology is. Possibly behavioral. Given the host of comorbidities and sustained altered mental status, we believe it is prudent to consult our neurology colleagues to further assess. --Neurology consulted --CT Head today --EEG today #Altered Mental Status #Possible Manic Episode #Grade I Hepatic Encephalopathy Stable. No known psych history per patient or her boyfriend. Hepatic encephalopathy is certainly a primary etiology here (boyfriend reports patient thought she didn't need to take the lactulose at least a week prior to this admission), but psychiatry is following to weigh in on whether this is an initi al manic episode. --psych is following and happy to accept patient to the wing once medically stable --per psych, patient is considered holdable if she decides to leave WHITETOP --cont. Zyprexa 5 mg q.h.s. p.r.n. per psych --cont. Lactulose 30 mg t.i.d. --cont. Rifaximin 550 mg b.i.d. --repeat ammonia in the a.m. #Alcoholic Cirrhosis #Abdominal Ascites s/p paracentesis #SBP Prophylaxis Indefinitely #Iatragenic Hyperalbuminemia, improving #Hyperbilirubinemia, improving #Coagulopathy GI has signed off. Patient has a high SAAG without evidence of elevated total protein in peritoneal fluid, suggesting portal hypertension as the cause of the ascites. MELD-Na today is 24. She is on therecommended oral spironolactone to furosemide ratio in smaller patients of 50mg to 20mg to help withascites. No liver biopsy performed as outpatient as of yet, but highly likely due to alcohol use disorder. Patient obviously will need a liver transplant, but foreseeable future regarding candidacy is unclear given history of alcohol abuse. Albumin at 5.3. INR still elevated at 2.6 today. --cont. ciprofloxacin 500mg qday indefinitely for SBP prophylaxis --cont. spironolactone 50mg po qday --cont. furosemide 20mg po qday --cont. Lactulose 30 mg t.i.d. --cont. Rifaximin 550 mg b.i.d. --cont. Vitamin K 5 mg q.day --repeat CMP in the a.m. #Acute Hypoxic Respiratory Failure-resolved #Right to Left Atrial Shunt #Newly diagnosed PFO #Severe Left Atrial Enlargement Patient able to maintain sats on room air. Lung sounds clear. TTE on 03/19/2021 evidenced right to left atrial shunt with PFO and severely enlarged left atrium. Cardiology was curbsided and recommendedthat we do not pursue any additional evaluation or therapy at this time. #Normocytic Anemia, stable #Coagulopathy Likely due to patient's gastropathy in the setting of coagulopathy. Hemoglobin at 7.0. Will continueto trend hemoglobin. Given recurrent drops in hemoglobin, would like to proceed with CT a/p today toevaluate possible slow bleed. --CT a/p without contrast --Transfuse if hemoglobin less than 7.0. --repeat CBC in the a.m. --repeat coags in a.m. #Thrombocytopenia Improving. Transfuse platelets if less than 50. #Compensated Metabolic Acidosis #Transient Lactic Acidemia Lactate drawn overnight and was 4.1 but repeated a few hours later and improved to 1.7 without intervention. Patient also likely dumping bicarb due to frequent BMs on lactulose, so we have started bicarb tablets. --cont. bicarb tablets 650 mg t.i.d. --repeat CMP in the a.m. --repeat lactate in the a.m. #Pseudohypocalcemia Ionized calcium normal. PTH normal. Will follow up on vitamin-D level. #Hypokalemia-resolved #Hypomagnesemia-resolved #Hypophosphatemia-resolved Replete per protocol. Continue to monitor. Patient seen and staffed with Dr. Guzman. Darian Thomas MD [facility] DUMPER Associated attestation - Keerthi Guzman M.D. - 03/21/2021 2:26 PM PAN DUMPER I saw and evaluated the patient, participating in the judd portions of the service. I reviewed the resident/fellow???s note. I agree with the resident/fellow???s findings and plan. Had spells last night which were concerning for possible seizure episode. Neurology was consulted. CT of the head was performed and was unremarkable study. Neurology will order EEG for further evaluation. Patient hemoglobin continue to drop. CT of the abdomen and pelvis was performed retroperitoneal hemorrhage was ruled out. Her ascites with slightly increased attenuation values, which raise a possibility of blood into the ascites. Radiology recommend paracentesis for confirmation, yet will not perform paracenteses because the last time she had she has massive bleeding requiring multiple PRBC transfusions. Will continue to monitor her hemoglobin and transfuse as needed. Non-severe (moderate) Malnutrition (03/21) The patient meets the ASPEN Criteria of malnutrition based on: Average estimated Intake: Less than or equal to 50% for 5 or more days (Pt. reported that she lost her appetite 2-3 weeks ago, but wasn't 100% sure due to the AMS she was experiencing. Also mentioned that she's always been a slow eater and eats small amounts at a time.) Weight Loss: Unable to Assess (When asked, the pt. claimed that her UBW is 120-130#.) Body Fat: Moderate Loss Muscle Mass: Moderate Loss Fluid Accumulation: Moderate-Severe (ascites) This is in the context of Acute Illness or Injury (likely due to progression/complications of liver disease.). Agree with Registered Dietitian's assessment and treatment plan: Interventions: Increase nutrient intake with small, frequent meals and/or snacks (Pt. has numerous food preferences and particularities but is willing to take the straw./banana smoothie w/added pro BID(@ lunch and supper). Diet order submitted around noon today.) Darian Thomas M.D., J.D. - 03/20/2021 10:00 AM CST SUBJECTIVE INTERVAL HISTORY Nursing notes reviewed. Patient did not sleep overnight and continued to have pressured speech. Interview was difficult given tangential nature and pressured speech. Attempted to repeatedly redirect. Patient has had 3 bowel movements throughout today. Mental status continues to wax and wane, although she hasn't been back to baseline since 03/15/2021 per patient's boyfriend. REVIEW OF SYSTEMS Full ROS performed, positives as per HPI, otherwise negative. OBJECTIVE Admission Weight: 54.2 kg Current Weight: 55.9 kg VITAL SIGNS Temperature: [35.7 ??C-38.3 ??C] 37.1 ??C Heart Rate: [96-109] 96 Resp Rate: [14-20] 20 Blood Pressure: (100-125)/(65-77) 113/76 SpO2: [93 %-98 %] 93 % Flow Rate (L/min): [0 L/min] 0 L/min Pulse Rate: [91-117] 91 PHYSICAL EXAM Gen: no acute distress, pleasant, cooperative with exam HEENT: normocephalic, external ears normal, marked scleral icterus, nares patent, moist mucous membranes Heart: RRR, grade 3/6 systolic murmur heard best over upper sternal border Lungs: diminished lung sounds in the bases Abd: soft, nontender, post paracentesis sutures in place without evidence of hematoma Ext: warm and well perfused; no asterixis during my exam Skin: marked jaundice Psych: oriented x3; pressured speech; flight of ideas; intermittent slurred speech DIAGNOSTICS No results found. Recent Results (from the past 24 hour(s)) Potassium Collection Time: 03/19/21 3:04 PM Result Value Potassium, P 3.5 (L) Calcium, Ionized Collection Time: 03/19/21 3:04 PM Result Value Calcium, Ionized, B 4.88 pH Collection Time: 03/19/21 3:04 PM Result Value pH 7.51 (H) Parathyroid Hormone (PTH) Collection Time: 03/19/21 3:04 PM Result Value Parathyroid Hormone (PTH), S 44 Prothrombin Time (PT) Collection Time: 03/20/21 7:40 AM Result Value Prothrombin Time, P 27.0 (H) INR 2.4 Comprehensive Metabolic Panel Collection Time: 03/20/21 7:40 AM Result Value Potassium, P 3.3 (L) Sodium, P 142 Chloride, P 108 (H) Bicarbonate, P 20 (L) Anion Gap, P 14 BUN (Blood Urea Nitrogen), P 4 (L) Creatinine, P 0.35 (L) eGFR-Black/ >90 eGFR Non-Black/ >90 Calcium, Total, P 10.2 (H) Glucose, P 107 Protein, Total, P 6.3 Albumin, P 5.3 (H) Aspartate Aminotransferase (AST), P 38 Alkaline Phosphatase, P 50 Alanine Aminotransferase (ALT), P 11 Bilirubin, Total, P 6.0 (H) CBC without Differential Collection Time: 03/20/21 7:40 AM Result Value Hemoglobin 7.6 (L) Hematocrit 23.4 (L) Erythrocytes 2.54 (L) MCV 92.1 RBC Distrib Width 20.5 (H) Platelet Count 94 (L) Leukocytes 5.9 Lactate, B Collection Time: 03/20/21 7:40 AM Result Value Lactate, B 1.0 pH Collection Time: 03/20/21 7:40 AM Result Value pH 7.48 (H) Calcium, Ionized Collection Time: 03/20/21 7:40 AM Result Value Calcium, Ionized, B 5.07 Magnesium Collection Time: 03/20/21 7:40 AM Result Value Magnesium, P 2.3 Blood Gas with Coox, Venous Collection Time: 03/20/21 7:40 AM Result Value Venous pO2 56 Venous pCO2 30 (L) Venous pH 7.48 (H) Venous Base Excess -1 HCO3 22 Hemoglobin, B 7.8 (L) O2Hb 88.2 COHb 1.8 MetHb 0.6 CtO2 9.7 Phosphorus Inorganic Collection Time: 03/20/21 7:40 AM Result Value Phosphorus (Inorganic), P 3.1 ASSESSMENT / PLAN #Altered Mental Status, improving #Possible Manic Episode #Grade I Hepatic Encephalopathy, improving Greatly improved today. No known psych history per patient or her boyfriend. Hepatic encephalopathy is certainly a primary etiology here (boyfriend reports patient thought she didn't need to take the lactulose at least a week prior to this admission), but psychiatry is following to weigh in on whetherthis is an initial manic episode. --psych is following and happy to accept patient to the [facility] once medically stable --per psych, patient is considered holdable if she decides to leave AMA --Zyprexa 5 mg has been changed to q.h.s. p.r.n. per psych --cont. Lactulose 30 mg t.i.d. --cont. Rifaximin 550 mg b.i.d. #Alcoholic Cirrhosis #Abdominal Ascites s/p paracentesis #SBP Prophylaxis Indefinitely #Iatragenic Hyperalbuminemia, improving #Hyperbilirubinemia, improving #Coagulopathy GI has signed off. Patient has a high SAAG without evidence of elevated total protein in peritoneal fluid, suggesting portal hypertension as the cause of the ascites. MELD-Na today is 23. She is on therecommended oral spironolactone to furosemide ratio in smaller patients of 50mg to 20mg to help withascites. No liver biopsy performed as outpatient as of yet, but highly likely due to alcohol use disorder. Patient obviously will need a liver transplant, but foreseeable future regarding candidacy is unclear given history of alcohol abuse. Albumin improved to 5.3. INR still elevated at 2.4 today status post yesterday's 1 unit of FFP. --cont. ciprofloxacin 500mg qday indefinitely for SBP prophylaxis --cont. spironolactone 50mg po qday --cont. furosemide 20mg po qday --cont. Lactulose 30 mg t.i.d. --cont. Rifaximin 550 mg b.i.d. --cont. Vitamin K 5 mg q.day --repeat CMP in the a.m. #Acute Hypoxic Respiratory Failure-resolved #Right to Left Atrial Shunt #Newly diagnosed PFO #Severe Left Atrial Enlargement Patient able to maintain sats on room air. Lung sounds clear. TTE on 03/19/2021 evidenced right to left atrial shunt with PFO and severely enlarged left atrium. Cardiology was curbsided and recommendedthat we do not pursue any additional evaluation or therapy at this time. #Normocytic Anemia, stable #Coagulopathy Likely due to patient's gastropathy in the setting of coagulopathy. Hemoglobin improved to 7.6 from 6.8 after yesterday's 1 unit packed RBCs. Will continue to trend hemoglobin. --Transfuse if hemoglobin less than 7.0. --repeat CBC in the a.m. --repeat coags in a.m. #Thrombocytopenia Improving. Transfuse platelets if less than 50. #Compensated Metabolic Acidosis Anion gap resolved. Lactate is normal. Patient likely dumping bicarb due to frequent BMs on lactulose, so we have started bicarb tablets. --start bicarb tablets 650 mg t.i.d. --repeat CMP in the a.m. #Pseudohypocalcemia Ionized calcium normal. PTH normal. Will follow up on vitamin-D level. #Hypokalemia #Hypomagnesemia-resolved #Hypophosphatemia-resolved Replete per protocol. Continue to monitor. Patient seen and staffed with Dr. Guzman. Darian Thomas MD [facility] DUMPER Associated attestation - Keerthi Guzman M.D. - 03/20/2021 12:10 PM PAN DUMPER I saw and evaluated the patient, participating in the judd portions of the service. I reviewed the resident/fellow???s note. I agree with the resident/fellow???s findings and plan. Patient looks better today. Feels more alert and awake. Paco Shah, Pharm.D., R.Ph. - 03/20/2021 7:58 AM CST Pharmacist Progress Note Reason for admission: AMS and hypoxia PMH: recently diagnosed liver cirrhosis (unknown etiology, possibly alcohol) - elevated LFTs + ascites (4 L removed from paracentesis ~3 weeks ago), recurrent pancreatitis, ADHD, marijuana use OBJECTIVE Home medications: ?? Held: Gabapentin, spironolactone ?? Changed: PO furosemide to IV, increased home lactulose from 20g to 30g TID. Patient own medications: n/a Prophylaxis: DVT: Cirrhosis. INR of 2.5. No need for heparin. SUP: pantoprazole 40mg IV BID 03/12 Blood cx: negative 03/12 pleural fluid: negative ASSESSMENT / PLAN 1. Liver cirrhosis/ascites/encephalopathy ?? Vitamin K 5mg PO daily x 3 days (03/19-03/21) - INR 2.5 ?? Lactulose 30g PO TID ?? Rifaximin 550mg PO BID ?? Pantoprazole 40 mg IV q12h ?? Folic acid 1mg daily ?? Thiamine 100mg PO daily 2. Intra-abdominal infection/SBP PPX ?? Ceftriaxone changed to ciprofloxacin 500mg PO daily on 03/19 for SBP prophylaxis ?? QTc 399 (03/19) was recently 516 (03/12) - also on olanzapine, changed from scheduled to prn 03/19 ?? Completed 6 day course of Zosyn on 03/17 3. Tox screen ?? Unconfirmed positive for oxycodone and THC; negative for all other ?? Ethanol <10 Changes to medications anticipated at discharge: oral SBP prophylaxis Paco Shah, PharmD, [facility]. DUMPER Bernarda Manning APRN, C.N.P., D.N.P. - 03/19/2021 6:14 PM CST PSYCHIATRY INPATIENT PROGRESS NOTE SUBJECTIVE INTERVAL HISTORY: Patient was discussed with nursing staff. Per nursing, patient is having worseningslurred speech. Hemoglobin dropped, and she received a unit blood today. She had a fever towards. She is noted to be talking too fast. She is tangential in thought process. At times she does not understand what is going on, but is alert oriented x3. Sometimes which she says seems to not make sense. Chart reviewed. Case discussed with Dr. Ram Met with patient in her hospital room, along with Rocky Whiteside, medical student, and patient's significant other Lobito. Patient gave permission for Lobito to remain in the room for interview. Patient says she is feeling much better today. She said yesterday she was very frustrated with 2 sisters. She saidshe apologized all the doctors. She said she was so frustrated because people were ???picking me up and putting me in bed. ?? She says that people would get frustrated with her when she would put her legs off of the side of the bed. She then demonstrated to us what she meant and leaned her legs off of the bed. She said 1 of her friends, who is a nurse here, came into her room and told her ???I heardyou yelling last night. ?? She says this friend hung out with her over in the night, and another friend, who also works at the hospital, also visited her during the night. However, she says that she is only allowed 1 visitor, who is Lobito. She describes her mood as ???good. ?? She denies any anxious thoughts. She says that her thoughts feel organized and are not moving too fast or too slow. She seems to become somewhat defensive when talking about this. She denies any suicidal thoughts. She denies any thoughts of wanting to hurt anyone else. She denies any auditory or visual hallucinations. She says that yesterday, Dr. Reyes or Rocky may have thought she was looking at someone in the corner because she kept looking off to the door. However, she says that she was just looking to see ifher boyfriend was visiting yet. She took the Zyprexa last night and found it helpful for her sleep. She denies any side effects from the medications. She is able to tell me about receiving a unit of blood and some plasma today. She says her team is still working on what is wrong with her. She is very happy to be alive. She continues to take lactulose but shares that she had stopped taking it at home before admission. She is able to tell me her name, place, date, and 3 most recent presidents. She is able to explain why she is in the hospital. COLLATERAL: Spoke with patient's significant other, Lobito, with patient's permission in the jack. Lobito says that patient does not seem back to baseline. He says on Wednesday and Wednesday, she was talking ???super fast. He says today she continues to talk fast but is talking more slowly today. Yesterday she was stuttering and had difficulty getting her words out, but this is improved. He says that she did not see her friends Stephanie Newman, the to women last night. He says these woman working [place] and would not have been in the hospital last night. He has been with her for 12 years, and never noticed any behavior like this before. REVIEW OF SYSTEMS Unremarkable except as documented in interval history. ALLERGIES/CONTRAINDICATIONS Allergies Allergen Reactions ??? Azithromycin Other (see comments) Unknown CURRENT MEDICATIONS Medications Report Scheduled Medication Ordered Dose/Rate, Route, Frequency Last Action ciprofloxacin tablet 500 mg (CIPRO) 500 mg, oral, Daily before breakfast Ordered folic acid tablet 1 mg 1 mg, oral, Daily Given, 1 mg at 03/19 910 furosemide tablet 20 mg (LASIX) 20 mg, oral, Daily Ordered lactulose solution 30 g (CHRONULAC) 30 g, gastric tube, TID Given, 30 g at 03/19 1509 magnesium sulfate in water IVPB 4 g 4 g, IV, Once New Bag, 4 g at 03/19 1540 melatonin tablet 6 mg 6 mg, oral, Daily at bedtime Given, 6 mg at 03/18 2129 OLANZapine tablet 5 mg (ZyPREXA) 5 mg, oral, Daily at bedtime Given, 5 mg at 03/[address] tablet 40 mg (PROTONIX) 40 mg, oral, BID Ordered phytonadione (vitamin K1) tablet 5 mg (MEPHYTON) 5 mg, oral, Daily Given, 5 mg at 03/19 135 [id number] [id number] mg per packet 2 packet (PHOS-NAK) 2 packet, oral, Q4H While awake Given, 2 packet at 03/19 1757 rifAXIMin tablet 550 mg (XIFAXAN) 550 mg, oral, BID Given, 550 mg at 03/19 09 sodium bicarbonate tablet 650 mg 650 mg, oral, TID Given, 650 mg at 03/19 1510 sodium chloride 0.9 % injection 5-15 mL 5-15 mL, IV, Q12H [place] Given, 10 mL at 03/19 09 spironolactone tablet 50 mg (ALDACTONE) 50 mg, oral, Daily Ordered thiamine tablet 100 mg (VITAMIN B1) 100 mg, oral, Daily Given, 100 mg at 03/19 0910 PRN Medication Ordered Dose/Rate, Route, Frequency Last Action NaCl 0.9% infusion 20-500 mL/hr, IV, Once PRN Ordered naloxone injection 0.2 mg 0.2 mg, IV, PRN Ordered oxyCODONE IR tablet 5 mg (ROXICODONE) 5 mg, oral, Q4H PRN Given, 5 mg at 03/16 0423 sodium chloride 0.9 % injection 10 mL 10 mL, IV, PRN Given, 10 mL at 03/17 0648 sodium chloride 0.9 % injection 5 mL 5 mL, IV, PRN Ordered OBJECTIVE VITAL SIGNS BP 121/74 (BP Location: Left arm;Upper, Patient Position: Lying) Pulse 108 Temp (!) 38.1 ??C (Temporal) Resp 20 Ht 157.5 cm Wt 55.9 kg SpO2 95% BMI 22.54 kg/m?? LABS Recent Results (from the past 72 hour(s)) CBC with Differential, Blood Collection Time: 03/17/21 6:35 AM Result Value Hemoglobin 7.7 (L) Hematocrit 22.3 (L) Erythrocytes 2.56 (L) MCV 87.1 RBC Distrib Width 19.3 (H) Platelet Count 68 (L) Leukocytes 6.1 Neutrophils 3.82 Lymphocytes 1.39 Monocytes 0.77 Eosinophils 0.05 Basophils <0.03 Basic Metabolic Panel Collection Time: 03/17/21 6:35 AM Result Value Potassium, P 3.7 Sodium, P 141 Chloride, P 106 Bicarbonate, P 21 (L) Anion Gap, P 14 BUN (Blood Urea Nitrogen), P 5 (L) Creatinine, P 0.35 (L) eGFR-Black/ >90 eGFR Non-Black/ >90 Calcium, Total, P 9.7 Glucose, P 116 Magnesium Collection Time: 03/17/21 6:35 AM Result Value Magnesium, P 1.7 CBC with Differential, Blood Collection Time: 03/18/21 8:35 AM Result Value Hemoglobin 7.1 (L) Hematocrit 21.3 (L) Erythrocytes 2.44 (L) MCV 87.3 RBC Distrib Width 19.8 (H) Platelet Count 77 (L) Leukocytes 6.2 Neutrophils 3.96 Lymphocytes 1.35 Monocytes 0.74 Eosinophils 0.08 Basophils <0.03 Comprehensive Metabolic Panel Collection Time: 03/18/21 8:35 AM Result Value Potassium, P 3.1 (L) Sodium, P 141 Chloride, P 106 Bicarbonate, P 20 (L) Anion Gap, P 15 BUN (Blood Urea Nitrogen), P 7 Creatinine, P 0.32 (L) eGFR-Black/ >90 eGFR Non-Black/ >90 Calcium, Total, P 10.2 (H) Glucose, P 109 Protein, Total, P 6.3 Albumin, P 5.4 (H) Aspartate Aminotransferase (AST), P 32 Alkaline Phosphatase, P 42 Alanine Aminotransferase (ALT), P 8 Bilirubin, Total, P 7.7 (H) Prothrombin Time (PT) Collection Time: 03/18/21 8:35 AM Result Value Prothrombin Time, P 28.8 (H) INR 2.6 Ammonia Collection Time: 03/18/21 6:59 PM Result Value Ammonia, P 55 (H) Hemoglobin Collection Time: 03/18/21 7:00 PM Result Value Hemoglobin 7.6 (L) Bilirubin, Direct Collection Time: 03/19/21 7:38 AM Result Value Bilirubin, Direct, P 1.6 (H) CBC with Differential, Blood Collection Time: 03/19/21 7:39 AM Result Value Hemoglobin 6.8 (L) Hematocrit 20.4 (L) Erythrocytes 2.25 (L) MCV 90.7 RBC Distrib Width 20.7 (H) Platelet Count 92 (L) Leukocytes 5.6 Neutrophils 3.54 Lymphocytes 1.31 Monocytes 0.64 Eosinophils 0.07 Basophils <0.03 Prothrombin Time (PT) Collection Time: 03/19/21 7:39 AM Result Value Prothrombin Time, P 28.4 (H) INR 2.5 Comprehensive Metabolic Panel Collection Time: 03/19/21 7:39 AM Result Value Potassium, P 3.1 (L) Sodium, P 140 Chloride, P 102 Bicarbonate, P 19 (L) Anion Gap, P 19 (H) BUN (Blood Urea Nitrogen), P 6 Creatinine, P 0.33 (L) eGFR-Black/ >90 eGFR Non-Black/ >90 Calcium, Total, P 10.6 (H) Glucose, P 116 Protein, Total, P 6.9 Albumin, P 6.7 (H) Aspartate Aminotransferase (AST), P 33 Alkaline Phosphatase, P 43 Alanine Aminotransferase (ALT), P 10 Bilirubin, Total, P 6.6 (H) Magnesium Collection Time: 03/19/21 7:39 AM Result Value Magnesium, P 1.5 (L) Phosphorus Inorganic Collection Time: 03/19/21 7:39 AM Result Value Phosphorus (Inorganic), P 1.8 (L) Ammonia Collection Time: 03/19/21 7:39 AM Result Value Ammonia, P 65 (H) Potassium Collection Time: 03/19/21 3:04 PM Result Value Potassium, P 3.5 (L) Calcium, Ionized Collection Time: 03/19/21 3:04 PM Result Value Calcium, Ionized, B 4.88 pH Collection Time: 03/19/21 3:04 PM Result Value pH 7.51 (H) Parathyroid Hormone (PTH) Collection Time: 03/19/21 3:04 PM Result Value Parathyroid Hormone (PTH), S 44 MENTAL STATUS EXAMINATION: Orientation: Oriented to person, place and time Level of consciousness: Awake and alert Appearance: Age appearing, jaundiced skin Behavior observed: Calm and Interactive, lying in hospital bed, appeared uncomfortable Memory: Impaired Estimated intellectual functioning: Average for developmental level Status of concentration: Mostly intact Cooperation: Cooperative Mood: good Affect: Euthymic, anxious Speech: Over-productive, rambling Thought process: Tangential Thought content, auditory/visual hallucinations and/or delusions: Denies perceptual disturbance but reports that friends visited last night Judgement: Limited Insight: Poor-fair Motivation for treatment: Fair Suicidal ideation: Denies suicidal ideation Homicidal ideations: Denies homicidal ideation ASSESSMENT / PLAN Catia Carias is a 30 y.o. female With a history of alcohol abuse, admitted with multiple complications from acute on chronic liver failure. Psychiatry consulted to rule out denise On assessment today, patient is hyper verbal, over productive in speech, and tangential in thought process. Her patient's significant other, this has improved since early in the week. Unclear at this time is symptoms are a 1st episode denise or due possibly to her hepatic encephalopathy. Will continue to assess as the encephalopathy resolves. DIAGNOSES: 1. Hepatic Encephalopathy 2. Rule out bipolar disorder 3. Alcohol use disorder PLAN: - EKG reviewed, and QTc has significantly improved. - Continue Zyprexa 5 mg QHS but change to PRN for sleep and anxiety. Changing to PRN, as her severalmedical conditions are being treated. - Patient is currently admitted on a voluntary status, but is considered holdable if she decides to leave [facility] without a safe discharge plan in place. - Will continue to follow and reassess the need for inpatient psychiatry once she is more medically stable, and the encephalopathy has resolved. ?? ADMINISTRATIVE BILLING Total time is 35 minutes with greater than 25 minutes spent in counseling and coordination of care. DUMPER Darian Thomas M.D., J.D. - 03/19/2021 1:41 PM CST SUBJECTIVE INTERVAL HISTORY Nursing notes reviewed. Patient did not sleep overnight and continued to have pressured speech. Interview was difficult given tangential nature and pressured speech. Attempted to repeatedly redirect. Patient has had 3 bowel movements throughout today. Mental status continues to wax and wane, although she hasn't been back to baseline since 03/15/2021 per patient's boyfriend. REVIEW OF SYSTEMS Full ROS performed, positives as per HPI, otherwise negative. OBJECTIVE Admission Weight: 54.2 kg Current Weight: 55.9 kg VITAL SIGNS Temperature: [35.7 ??C-37.6 ??C] 37.6 ??C Heart Rate: [96-105] 96 Resp Rate: [14-24] 20 Blood Pressure: (98-126)/(65-77) 100/65 SpO2: [94 %-98 %] 96 % Weight: [55.9 kg] 55.9 kg BMI (Calculated): [22.5 kg/m??] 22.5 kg/m?? Pulse Rate: [96-101] 96 PHYSICAL EXAM Gen: no acute distress, pleasant, cooperative with exam HEENT: normocephalic, external ears normal, marked scleral icterus, nares patent, moist mucous membranes Heart: RRR, grade 3/6 systolic murmur heard best over upper sternal border Lungs: diminished lung sounds in the bases Abd: soft, nontender, post paracentesis sutures in place without evidence of hematoma Ext: warm and well perfused; no asterixis during my exam Skin: marked jaundice Psych: oriented x3; pressured speech; flight of ideas; intermittent slurred speech DIAGNOSTICS No results found. Recent Results (from the past 24 hour(s)) Ammonia Collection Time: 03/18/21 6:59 PM Result Value Ammonia, P 55 (H) Hemoglobin Collection Time: 03/18/21 7:00 PM Result Value Hemoglobin 7.6 (L) Bilirubin, Direct Collection Time: 03/19/21 7:38 AM Result Value Bilirubin, Direct, P 1.6 (H) CBC with Differential, Blood Collection Time: 03/19/21 7:39 AM Result Value Hemoglobin 6.8 (L) Hematocrit 20.4 (L) Erythrocytes 2.25 (L) MCV 90.7 RBC Distrib Width 20.7 (H) Platelet Count 92 (L) Leukocytes 5.6 Neutrophils 3.54 Lymphocytes 1.31 Monocytes 0.64 Eosinophils 0.07 Basophils <0.03 Prothrombin Time (PT) Collection Time: 03/19/21 7:39 AM Result Value Prothrombin Time, P 28.4 (H) INR 2.5 Comprehensive Metabolic Panel Collection Time: 03/19/21 7:39 AM Result Value Potassium, P 3.1 (L) Sodium, P 140 Chloride, P 102 Bicarbonate, P 19 (L) Anion Gap, P 19 (H) BUN (Blood Urea Nitrogen), P 6 Creatinine, P 0.33 (L) eGFR-Black/ >90 eGFR Non-Black/ >90 Calcium, Total, P 10.6 (H) Glucose, P 116 Protein, Total, P 6.9 Albumin, P 6.7 (H) Aspartate Aminotransferase (AST), P 33 Alkaline Phosphatase, P 43 Alanine Aminotransferase (ALT), P 10 Bilirubin, Total, P 6.6 (H) Magnesium Collection Time: 03/19/21 7:39 AM Result Value Magnesium, P 1.5 (L) Phosphorus Inorganic Collection Time: 03/19/21 7:39 AM Result Value Phosphorus (Inorganic), P 1.8 (L) Ammonia Collection Time: 03/19/21 7:39 AM Result Value Ammonia, P 65 (H) ASSESSMENT / PLAN #Altered Mental Status #Possible Manic Episode #Grade I Hepatic Encephalopathy Patient continues to wax and wane. Thoughts are tangential with pressured speech. Behavior certainlyresembles a possible manic episode. No known psych history per patient or her boyfriend. Hepatic encephalopathy is certainly a primary etiology here (boyfriend reports patient thought she didn't need to take the lactulose at least a week prior to this admission), but psychiatry is following to assist with this abrupt change in behavior. Infection is an unlikely potentiator given IV abx and negative broad infectious work-up thus far. --psych is following and happy to accept patient to the wing once medically stable --per psych, patient is considered holdable if she decides to leave AMA --cont. Lactulose --cont. Rifaximin #Alcoholic Cirrhosis #Abdominal Ascites s/p paracentesis #SBP Prophylaxis #Iatragenic Hyperalbuminemia #Hyperbilirubinemia #Coagulopathy GI has signed off. Patient has a high SAAG without evidence of elevated total protein in peritoneal fluid, suggesting portal hypertension as the cause of the ascites. MELD-Na today is 24. Started the recommended oral spironolactone to furosemide ratio in smaller patients of 50mg to 20mg to help with ascites. No liver biopsy performed as outpatient as of yet, but highly likely due to alcohol use disorder. Patient obviously will need a liver transplant, but foreseeable future regarding candidacy is unclear given history of alcohol abuse. Scheduled albumin has been stopped. INR elevated at 2.5 today, 1 unit of FFP administered. --ceftriaxone changed to ciprofloxacin 500mg qday indefinitely for SBP prophylaxis --spironolactone 50mg po qday --furosemide 20mg po qday --cont. Lactulose --cont. Rifaximin --cont. PPI #Acute Hypoxic Respiratory Failure-resolved #Pleural Effusions on CT #Right to Left Atrial Shunt #Newly diagnosed PFO #Severe Left Atrial Enlargement Patient able to maintain sats on room air. Lung sounds improved. TTE evidenced right to left atrial shunt with PFO and severely enlarged left atrium. Cardiology was curbsided and recommended that we donot pursue any additional evaluation or therapy at this time. #Normocytic Anemia Likely due to patient's gastropathy in the setting of coagulopathy. Hemoglobin 6.8. 1 unit pRBC given along with 1 unit FFP. Will continue to trend hemoglobin. Transfuse if less than 7.0. #Thrombocytopenia Improving. Transfuse platelets if less than 50. #Metabolic Anion-Gap Acidosis Unclear etiology for the anion gap. Will check lactate. Patient likely dumping bicarb due to frequent BMs on lactulose. --start bicarb tablets 650 tid --continue to monitor #Pseudohypocalcemia Ionized calcium normal. PTH normal. Will check vitamin D in the AM. #Hypokalemia #Hypomagnesemia #Hypophosphatemia Replete. Continue to monitor. Patient seen and staffed with Dr. Guzman. Darian Thomas MD [facility] DUMPER Associated attestation - Keerthi Guzman M.D. - 03/19/2021 7:11 PM PAN DUMPER I saw and evaluated the patient, participating in the judd portions of the service. I reviewed the resident/fellow???s note. I agree with the resident/fellow???s findings and plan. Paco Shah, Pharm.D., R.Ph. - 03/19/2021 10:34 AM CST Pharmacist Progress Note Reason for admission: AMS and hypoxia PMH: recently diagnosed liver cirrhosis (unknown etiology, possibly alcohol) - elevated LFTs + ascites (4 L removed from paracentesis ~3 weeks ago), recurrent pancreatitis, ADHD, marijuana use OBJECTIVE Home medications: ?? Held: Gabapentin, spironolactone ?? Changed: PO furosemide to IV, increased home lactulose from 20g to 30g TID. Patient own medications: n/a Prophylaxis: DVT: Cirrhosis. INR of 2.6. No need for heparin. SUP: pantoprazole 40mg IV BID 03/12 Blood cx: negative 03/12 pleural fluid: negative ASSESSMENT / PLAN 1. Liver cirrhosis/ascites/encephalopathy ?? Albumin 25g q6h ?? Lactulose 30g PO TID ?? Rifaximin 550mg PO BID ?? Pantoprazole 40 mg IV q12h ?? Folic acid 1mg daily ?? Thiamine 100mg PO daily ?? On normal diet, however continues to have diarrhea. Keep IV meds for now. 2. Intra-abdominal infection/SBP PPX ?? Day 2 ceftriaxone for SBP prophylaxis, will need chronic PO prophylaxis. ?? Completed 6 day course of Zosyn on 03/17 3. Tox screen ?? Unconfirmed positive for oxycodone and THC; negative for all other ?? Ethanol <10 Changes to medications anticipated at discharge: oral SBP prophylaxis Virginie Valerio, Pharm.D., R.Ph. DUMPER Sofi Tomlin RDN, TALI - 03/18/2021 2:36 PM CST Clinical Note Types: Initial Assessment NUTRITION VISIT REASON: poor intakes noted when rescreening pt NUTRITION ASSESSMENT Admitting Diagnosis: AMS, cirrohsis Past Medical History: long QT syndrome, hepatic failure, pancreatitis, cannabis disorder, GERD, anxiety Social History: from home with S.O. Food and Nutrition Related History Previous Diet: Pt admitted in with AMS. Pt does have a h/o pancreatitis, marijuna use, ADHD, GERD and long QT syndrome. Pt found to have encephalopathy secondary to hepatic etiology, bacterial peritonitis and required intubation due to AMS. Pt was intubated from 03/13-03/14 but given GI bleed enteral feedings were held. Diet then able to be advanced to clear liquids on 03/15 and since then a regular,2gm Na diet. No intakes recorded since admit. Nurse noted yesterday pt did not have a good appetite.RN noted this morning that pt has not eaten yet this morning and encouraged residential mortgage underwriter to allow pt to rest as pt had just fallen asleep and had previously been awake for 48hrs. Speech yesterday was incoherant. GI Related Hx: Paracentesis on 03/13 that removed 1.5L of lfuid and 1L of fluid removed from thoracentesis. Pt is recieving lactulose, rifaxamin, and thiamine. Liver issues noted given ETOH use. Other: Pt did require a sitter last night. Weight Change History: Weight per care everywhere: 63.5kg (06/28/19), 54.2kg (03/12/21); pt with a 9.3kg weight loss over the past 21 months which is not significant however uncertain to when wgt loss technically occured. Skin Integrity: no pressure ulcer noted MALNUTRITION ASSESSMENT (03/18/21: unable to fully assess at this time) in the context of based on ASPEN/AND criteria noted below: Weight Loss: Unable to Assess Average estimated Intake: Less than or equal to 50% for 5 or more days Muscle Mass: Unable to Assess Body Fat: Unable to Assess Fluid Accumulation: Absent PERTINENT LABS: Last 3 results Lab Units 03/18/21 0835 03/17/21 0635 03/16/21 0421 SODIUM P mmol/L 141 141 140 POTASSIUM P mmol/L 3.1* 3.7 3.6 CHLORIDE P mmol/L 106 106 109* BUN P mg/dL 7 5* 5* CREATININE P mg/dL 0.32* 0.35* 0.40* PHOSPHORUS INORGANIC P mg/dL -- -- 2.0* CALCIUM P mg/dL 10.2* 9.7 8.9 MAGNESIUM RL mg/dL -- 1.7 1.7 ANTHROPOMETRICS Height: 157.5 cm Admission Weight: 54.2 kg Weight: 57 kg BMI (Calculated): 23 kg/m?? % [place] Body Weight: 108 % IBW Adjusted Body Weight : 51 Kg ESTIMATED NEEDS: Weight Used for Equation Calculations: 54 kg kcal/k-30 Estimated Energy Needs (Low): 1350 kcal/day Estimated Energy Needs (High): 1620 kcal/day Weight Used to Calculate Protein Needs (Kg): 54 kg Method to Estimate Protein Needs (g/kg): 1 - 1.2 Estimated Protein Needs (Low): 54 Estimated Protein Needs (High): 65 Dietary Orders (From admission, onward) Start Ordered 03/15/21 1044 Adult Diet Regular; 2,000 mg Na Diet effective now Question Answer Comment Diet texture: Regular Sodium: 2,000 mg Na 03/15/21 1043 NUTRITION DIAGNOSIS: Inadequate oral intake related to AMS, chronic illness as evidenced by no intake recorded x 6 NUTRITION PLAN AND INTERVENTIONS: Interventions: Medical food supplement (Will attempt to send nutritional supplements on meal trays and f/u with tolerance.) MONITORING AND EVALUATION: Nutrition Monitoring/Evaluation Monitoring: Meals/Supplement Intake,Nausea/Vomiting/Diarrhea,Pertinent Labs DUMPER Paco Shah, Pharm.D., R.Ph. - 03/18/2021 11:03 AM CST Pharmacist Progress Note Reason for admission: AMS and hypoxia PMH: recently diagnosed liver cirrhosis (unknown etiology, possibly alcohol) - elevated LFTs + ascites (4 L removed from paracentesis ~3 weeks ago), recurrent pancreatitis, ADHD, marijuana use OBJECTIVE Home medications: ?? Held: Gabapentin, spironolactone ?? Changed: PO furosemide to IV, increased home lactulose from 20g to 30g TID. Patient own medications: n/a Prophylaxis: DVT: Cirrhosis. INR of 2.6. No need for heparin. SUP: pantoprazole 40mg IV BID 03/12 Blood cx: negative 03/12 pleural fluid: negative ASSESSMENT / PLAN 1. Liver cirrhosis/ascites/encephalopathy ?? Albumin 25g q6h ?? Lactulose 30g PO TID ?? Rifaximin 550mg PO BID ?? Pantoprazole 40 mg IV q12h ?? Folic acid 1mg daily ?? Thiamine 100mg PO daily ?? On normal diet, however continues to have diarrhea. Keep IV meds for now. 2. Intra-abdominal infection/SBP PPX ?? Day 1 ceftriaxone for SBP prophylaxis, will need chronic PO prophylaxis. Dose adjusted from 2g to1g for prophylaxis dosing. ?? Completed 6 day course of Zosyn on 03/17 3. Tox screen ?? Unconfirmed positive for oxycodone and THC; negative for all other ?? Ethanol <10 Changes to medications anticipated at discharge: oral SBP prophylaxis Virginie Valerio, Pharm.D., R.Ph. DUMPER Darian Thomas M.D., J.D. - 03/18/2021 10:08 AM CST SUBJECTIVE INTERVAL HISTORY Nursing notes reviewed. Patient did not sleep overnight and continued to have pressured speech. Interview was difficult given tangential nature and pressured speech. Attempted to repeatedly redirect. Patient has had 3 bowel movements throughout today. Mental status continues to wax and wane, although she hasn't been back to baseline since 03/15/2021 per patient's boyfriend. REVIEW OF SYSTEMS Full ROS performed, positives as per HPI, otherwise negative. OBJECTIVE Admission Weight: 54.2 kg Current Weight: 57 kg VITAL SIGNS Temperature: [36.7 ??C-37.2 ??C] 37.2 ??C Heart Rate: [98] 98 Resp Rate: [14] 14 Blood Pressure: (104-120)/(68-78) 110/68 SpO2: [95 %-98 %] 96 % Flow Rate (L/min): [0 L/min] 0 L/min Pulse Rate: [67-100] 98 PHYSICAL EXAM Gen: ill-appearing, pleasant, cooperative with exam HEENT: normocephalic, external ears normal, marked scleral icterus, nares patent, moist mucous membranes Heart: RRR, grade 3/6 systolic murmur heard best over right upper sternal border Lungs: diminished lung sounds in the bases Abd: soft, nontender, post paracentesis sutures in place without evidence of hematoma Ext: warm and well perfused; no asterixis during my exam Skin: marked jaundice Psych: oriented x3; pressured speech; flight of ideas; intermittent slurred speech DIAGNOSTICS No results found. Recent Results (from the past 24 hour(s)) CBC with Differential, Blood Collection Time: 03/18/21 8:35 AM Result Value Hemoglobin 7.1 (L) Hematocrit 21.3 (L) Erythrocytes 2.44 (L) MCV 87.3 RBC Distrib Width 19.8 (H) Platelet Count 77 (L) Leukocytes 6.2 Neutrophils 3.96 Lymphocytes 1.35 Monocytes 0.74 Eosinophils 0.08 Basophils <0.03 Comprehensive Metabolic Panel Collection Time: 03/18/21 8:35 AM Result Value Potassium, P 3.1 (L) Sodium, P 141 Chloride, P 106 Bicarbonate, P 20 (L) Anion Gap, P 15 BUN (Blood Urea Nitrogen), P 7 Creatinine, P 0.32 (L) eGFR-Black/ >90 eGFR Non-Black/ >90 Calcium, Total, P 10.2 (H) Glucose, P 109 Protein, Total, P 6.3 Albumin, P 5.4 (H) Aspartate Aminotransferase (AST), P 32 Alkaline Phosphatase, P 42 Alanine Aminotransferase (ALT), P 8 Bilirubin, Total, P 7.7 (H) Prothrombin Time (PT) Collection Time: 03/18/21 8:35 AM Result Value Prothrombin Time, P 28.8 (H) INR 2.6 ASSESSMENT / PLAN #Altered Mental Status #Grade I Hepatic Encephalopathy Patient continues to wax and wane. Thoughts are tangential with pressured speech. In the setting of reportedly no sleep for the past 48 hours, certainly resembles a possible manic episode. No known psych history per patient or her boyfriend. Hepatic encephalopathy is certainly a primary etiology here ( boyfriend reports patient thought she didn't need to take the lactulose at least a week prior to this admission), but would like psychiatry's input regarding patient's change in behavior. Infection is an unlikely potentiator given IV abx and negative broad infectious work-up thus far. Will follow-up regarding psych's evaluation and management recommendations. --psych consult --trend ammonia --continue to redirect and orient patient --cont. Lactulose --cont. Rifaximin #Alcoholic Cirrhosis #Abdominal Ascites s/p paracentesis GI has signed off. Patient has a high SAAG without evidence of elevated total protein in peritoneal fluid, suggesting portal hypertension as the cause of the ascites. CHF would be indicated if total protein was high. However, given presence of murmur on exam today, would still proceed with TTE when patient seems capable of tolerating the study. MELD-Na today is 25. --GI signed off --cont. ceftriaxone --cont. Lactulose --cont. Rifaximin #Acute Hypoxic Respiratory Failure #Pleural Effusions on CT #Possible Cirrhotic Cardiomyopathy #Possible Portopulmonary Hypertension Patient able to maintain sats on room air throughout today. 3/6 systolic murmur noted on exam today.As discussed above, would like to proceed with TTE when patient is able to tolerate. #Normocytic Anemia Likely due to paracentesis. Hemoglobin 7.1 this morning but trending up to 7.6 this evening. Transfuse if less than 7.0. No signs of active bleeding on exam today. Will continue to trend hemoglobin. Patient seen and staffed with Dr. Valle. Darian Thomas MD [facility] DUMPER Associated attestation - Ulises Valle M.B.B.S. - 03/20/2021 12:12 PM PAN DUMPER I saw and evaluated the patient, participating in the judd portions of the service. I reviewed the resident/fellow???s note. I agree with the resident/fellow???s findings and plan. Kain Perez Pharm.D., R.Ph. - 03/17/2021 6:55 PM CST Images from the original note were not included. Admission Medication History Note Adherence issues: Unable to assess Medication list source: Pharmacy or dispense records Medication related information: Altered mental status; unable to assess admission med list. Reviewedrecent prescription fill history. Prior to Admission Medications Med List Status: Pharmacy Complete Set By: Kain Perez Pharm.D., R.Ph. at 03/17/2021 6:55 PM Taking? Last Dose Informant Start Date End Date LT acetaminophen (TYLENOL) 325 mg tablet Past Month -- -- Take 325-975 mg by mouth every 4 (four) hours as needed. diphenhydrAMINE (BENADRYL) 25 mg tablet Past Month -- -- Take 25 mg by mouth every 6 (six) hours as needed for allergies. furosemide (LASIX) 20 mg tablet Past Month 02/21/21 -- Take 10 mg by mouth daily. gabapentin (NEURONTIN) 100 mg capsule Past Month 03/04/21 -- Take 200 mg by mouth 3 (three) times a day. lactulose (CHRONULAC) 10 gram/15 mL solution Past Month 01/31/21 -- Take 20 g by mouth 3 (three) times a day. omeprazole (PriLOSEC OTC) 20 mg EC tablet Past Month -- -- Take 20 mg by mouth daily as needed. For GI upset ondansetron ODT (ZOFRAN-ODT) 4 mg disintegrating tablet Past Month 02/02/21 -- Take 4 mg by mouth every 6 (six) hours as needed. oxyCODONE (ROXICODONE) 5 mg immediate release tablet Past Month 03/10/21 -- Take 5 mg by mouth every 6 (six) hours as needed. spironolactone (ALDACTONE) 50 mg tablet Past Month 03/03/21 -- Take 50 mg by mouth daily. DUMPER Junaid Cast M.D. - 03/17/2021 3:02 PM CST INTERVAL HISTORY Catia Carias is a 30 y.o. female who was admitted to the hospital for Change Mental Status. Overnight didn't sleep even with melatonin. Patient is able to answer questions but constant drifting away from questions and rambling speech that is incoherent. She is alert with self but not place and time. -- Rectal reynolds catheter is removed today. I have reviewed the current medication list. REVIEW OF SYSTEMS Full ROS performed, positives as per HPI, otherwise negative. OBJECTIVE Admission Weight: 54.2 kg Current Weight: 57 kg VITAL SIGNS Temperature: [36.9 ??C-37.3 ??C] 37.2 ??C Heart Rate: [105-106] 106 Resp Rate: [16-36] 18 Blood Pressure: (117-125)/(67-77) 117/77 Arterial Line BP: (130-144)/(71-73) 130/71 SpO2: [87 %-95 %] 95 % Flow Rate (L/min): [0 L/min] 0 L/min Weight: [57 kg] 57 kg BMI (Calculated): [23 kg/m??] 23 kg/m?? Pulse Rate: [88-105] 94 I/O last 3 completed shifts: In: 3708.7 [P.O.:1050] Out: 6615 [Urine:4590; Other:1025; Stool:1000] I/O this shift: In: 550 [P.O.:450] Out: 2200 [Urine:2200] PHYSICAL EXAM Constitutional General: She is not in acute distress. Comments: Alert but seems to rumbling speech that is incoherent HENT Head: Normocephalic and atraumatic. Mouth/Throat: Mouth: Mucous membranes are moist. Eyes General: Scleral icterus present. Extraocular Movements: Extraocular movements intact. Pupils: Pupils are equal, round, and reactive to light. Comments: Scleral icterus Cardiovascular Rate and Rhythm: Normal rate and regular rhythm. Heart sounds: Normal heart sounds. Pulmonary Effort: Pulmonary effort is normal. No respiratory distress. Breath sounds: Normal breath sounds. No wheezing. Abdominal General: There is no distension. Tenderness: There is no abdominal tenderness. Comments: Distant bowl sounds Bandaged/guazed on the left abdomen( paracentesis site), no discharge or redness Musculoskeletal General: Normal range of motion. Cervical back: Normal range of motion. Skin Comments: Mild jaundice Neurological Mental Status: She is disoriented. Motor: Weakness present. DIAGNOSTICS No results found. Recent Results (from the past 24 hour(s)) Hemoglobin Collection Time: 03/16/21 4:14 PM Result Value Hemoglobin 8.2 (L) Hematocrit Collection Time: 03/16/21 4:14 PM Result Value Hematocrit 23.7 (L) CBC with Differential, Blood Collection Time: 03/17/21 6:35 AM Result Value Hemoglobin 7.7 (L) Hematocrit 22.3 (L) Erythrocytes 2.56 (L) MCV 87.1 RBC Distrib Width 19.3 (H) Platelet Count 68 (L) Leukocytes 6.1 Neutrophils 3.82 Lymphocytes 1.39 Monocytes 0.77 Eosinophils 0.05 Basophils <0.03 Basic Metabolic Panel Collection Time: 03/17/21 6:35 AM Result Value Potassium, P 3.7 Sodium, P 141 Chloride, P 106 Bicarbonate, P 21 (L) Anion Gap, P 14 BUN (Blood Urea Nitrogen), P 5 (L) Creatinine, P 0.35 (L) eGFR-Black/ >90 eGFR Non-Black/ >90 Calcium, Total, P 9.7 Glucose, P 116 Magnesium Collection Time: 03/17/21 6:35 AM Result Value Magnesium, P 1.7 No results found for this visit on 03/12/21 (from the past 72 hour(s)). ASSESSMENT / PLAN Catia Carias is a 30 y.o. female who was admitted to the hospital for Change Mental Status due cirrhosis. Change Mental Status Acute encephalopathy secondary to hepatic etiology Spontaneous bacterial peritonitis Requiring intubation and mechanical ventilation secondary to AMS This could have been precipitated by SBP v/s pneumonia. Patient looked Orientated self but not place/time. Rumbling on speech that is incoherent. -- continue Lactulose titrate down have no more than 1-1.5 L of liquid stool out. Rectal reynolds catheter removed today and monitor BM patient has. --- Rifaximin -- Ceftriaxone to -- #1 Cirrhosis Alcoholic (HCC): MELD Score 25 Recently diagnosed cirrhosis with ascites likely due to Alcohol consumption, patient had paracentesis yesterday and patient recieved total of 5 units PRBC and 4 units of FFP. This resolved after surgery placed sutures. -- continue with lasix -- Per GI no EGD, and future paracentesis will recommend replacement of 25% albumin at 8 g/l fluid removed. -- Will likely need indefinite SBP prophylaxis. -- Folate/Thaimine replaced -- INR 2.1 and PT 23.4: monitor -- Electrolyte montoring #4 Anemia Macrocytic During paracentesis yesterday patient lost blood during the procedure and patient recieved total of 5 units PRBC -- Hb 7.7, Will monitor Community acquired Pneumonia , Aspiration? --Patient is oxygenation well SPO2 95% room air -- Finished the course abx vancomycin and zosyn -- Will monitor respiration and oxygenation via continuous pulse oxemtery FEN: Adult diet 2,000mg NA CODE STATUS: Full code DVT Prophylaxis: SCD Discharge Information: TBD Risks, benefits, and alternatives to the above assessment and plan were discussed with the patient who is in agreement with this moving forward. All of patient's questions were answered to the best of my ability at this time. This patient was seen and examined by me and Ulises Valle M.B.B.S. Junaid Cast M.D. PGY1 [facility] DUMPER Associated attestation - Ulises Valle M.B.B.S. - 03/18/2021 6:06 PM PAN DUMPER I saw and evaluated the patient, participating in the judd portions of the service. I reviewed the resident/fellow???s note. I agree with the resident/fellow???s findings and plan. Lizet Navarro M.D. - 03/16/2021 5:41 PM CST SUBJECTIVE CHIEF COMPLAINT/REASON FOR VISIT Acute hepatic encephalopathy HISTORY OF PRESENT ILLNESS Catia Carias is a 30-year-old female who has been admitted with acute on chronic liver failure. Apparently she has history of alcohol abuse in the past. She presented altered mental sensorium and wasintubated and mechanically ventilated. Patient had elevated ammonia. She underwent thoracentesis and paracentesis. Patient had elevated neutrophil count in the pleural fluid but not in the ascitic fluid. She also appeared to have some coffee-ground aspirate from the NG tube. She has required some blood transfusion for anemia and also lactulose to help further hepatic encephalopathy. INTERVAL EVENTS: Patient is oxygenating well on RA. She required PRBC overnight and this morning for bleeding at the paracentesis site. Remains hemodynamically stable. CURRENT MEDICATIONS Scheduled Medications: lidocaine (PF), , , albumin human, 25 g, intravenous, Q6H [place] [START ON 03/18/2021] cefTRIAXone, 2 g, intravenous, Daily doxycycline, 100 mg, intravenous, Q12H [place] folic acid, 1 mg, oral, Daily furosemide, 20 mg, intravenous, Q24H [place] ketamine, 100 mg, intravenous, Once lactulose, 30 g, gastric tube, TID pantoprazole, 40 mg, intravenous, Q12H [place] piperacillin-tazobactam, 3.375 g, intravenous, Q6H [place] rifAXIMin, 550 mg, oral, BID sodium chloride, 5-15 mL, intravenous, Q12H [place] thiamine, 100 mg, oral, Daily Continuous Infusions: PRN Medications: NaCl 0.9% ??? NaCl 0.9% ??? naloxone ??? oxyCODONE ??? sodium chloride ??? sodium chloride OBJECTIVE VITAL SIGNS BP 152/68 Pulse 93 Temp 37.7 ??C (Temporal) Resp (!) 25 Ht 157.5 cm Wt 60.5 kg SpO2 96% BMI 24.40 kg/m?? PHYSICAL EXAMINATION General: Alert and appears comfortable. She is cachectic HEENT: Normocephalic, atraumatic. No scleral icterus. Oral mucosa moist. Neck: Supple. No lymphadenopathy. Cardiovascular: Normal S1/S2. No murmurs. Lungs: Clear to auscultation bilaterally. Abdomen: Soft, NT, ND, +BS. Ascites is present , + blood at previous paracentesis site. Extremities: No BLE edema. Neurological: she is cachectic Intake/Output Summary (Last 24 hours) at 03/16/2021 1742 Last data filed at 03/16/2021 1500 Gross per 24 hour Intake 5711.35 ml Output 7600 ml Net -1888.65 ml DIAGNOSTICS Labs: Recent Results (from the past 24 hour(s)) Hemoglobin Collection Time: 03/15/21 8:11 PM Result Value Hemoglobin 6.6 (L) Glucose, POCT Collection Time: 03/15/21 11:33 PM Result Value Glucose, POCT, B 160 (H) Hemoglobin Collection Time: 03/16/21 12:08 AM Result Value Hemoglobin 7.3 (L) Potassium Collection Time: 03/16/21 12:08 AM Result Value Potassium, P 3.9 Prothrombin Time (PT) Collection Time: 03/16/21 1:11 AM Result Value Prothrombin Time, P 26.9 (H) INR 2.4 APTT (Activated Partial Thromboplastin Time) Collection Time: 03/16/21 1:11 AM Result Value Activated Partial Thrombopl Time, P 61 (H) Fibrinogen Collection Time: 03/16/21 1:11 AM Result Value Fibrinogen, P 57 (Crit L) Test, POCT, Urine (lab) Collection Time: 03/16/21 2:11 AM Result Value Test, POCT, U Negative Magnesium Collection Time: 03/16/21 4:21 AM Result Value Magnesium, P 1.7 Phosphorus Inorganic Collection Time: 03/16/21 4:21 AM Result Value Phosphorus (Inorganic), P 2.0 (L) Comprehensive Metabolic Panel Collection Time: 03/16/21 4:21 AM Result Value Potassium, P 3.6 Sodium, P 140 Chloride, P 109 (H) Bicarbonate, P 20 (L) Anion Gap, P 11 BUN (Blood Urea Nitrogen), P 5 (L) Creatinine, P 0.40 (L) eGFR-Black/ >90 eGFR Non-Black/ >90 Calcium, Total, P 8.9 Glucose, P 135 Protein, Total, P 5.2 (L) Albumin, P 4.0 Aspartate Aminotransferase (AST), P 33 Alkaline Phosphatase, P 43 Alanine Aminotransferase (ALT), P 8 Bilirubin, Total, P 5.1 (H) CBC without Differential Collection Time: 03/16/21 4:21 AM Result Value Hemoglobin 6.2 (L) Hematocrit 18.3 (L) Erythrocytes 1.95 (L) MCV 93.8 RBC Distrib Width 20.1 (H) Platelet Count 80 (L) Leukocytes 6.3 pH Collection Time: 03/16/21 4:57 AM Result Value pH 7.49 (H) Calcium, Ionized Collection Time: 03/16/21 4:57 AM Result Value Calcium, Ionized, B 4.49 (L) Glucose, POCT Collection Time: 03/16/21 5:43 AM Result Value Glucose, POCT, B 121 Type and Screen (with reflex Antibody ID) Collection Time: 03/16/21 5:44 AM Result Value ABO Group B Rh Type POS Antibody Screen NEG Type & Screen Expiration 03/19/2021 23:59 [facility] Eligible Y Testing Location Collection Time: 03/16/21 5:44 AM Result Value Testing Location [facility] Hemoglobin Collection Time: 03/16/21 7:31 AM Result Value Hemoglobin 5.3 (Crit L) Prothrombin Time (PT) Collection Time: 03/16/21 7:32 AM Result Value Prothrombin Time, P 23.4 (H) INR 2.1 APTT (Activated Partial Thromboplastin Time) Collection Time: 03/16/21 7:32 AM Result Value Activated Partial Thrombopl Time, P 54 (H) Fibrinogen Collection Time: 03/16/21 7:32 AM Result Value Fibrinogen, P 135 (L) Hemoglobin Collection Time: 03/16/21 12:58 PM Result Value Hemoglobin 8.3 (L) Hematocrit Collection Time: 03/16/21 12:58 PM Result Value Hematocrit 24.8 (L) Hemoglobin Collection Time: 03/16/21 4:14 PM Result Value Hemoglobin 8.2 (L) Hematocrit Collection Time: 03/16/21 4:14 PM Result Value Hematocrit 23.7 (L) Micro: Microbiology Results (last 72 hours) Procedure Component Value - Date/Time Gram Stain [[id number]] Collected: 03/12/21 1546 Lab Status: Final result Specimen: Peritoneal Fluid Updated: 03/12/21 1822 Gram Stain No organisms seen. White blood cells present. Stain performed on concentrated cytospin preparation. Bacterial Culture, Anaerobic + Susc [[id number]] Collected: 03/12/21 1546 Lab Status: In process Specimen: Peritoneal Fluid Updated: 03/12/21 1548 Bacterial Culture, Aerobic + Susc [[id number]] Collected: 03/12/21 1546 Lab Status: Preliminary result Specimen: Peritoneal Fluid Updated: 03/13/21 1129 Bacterial Culture, Aerobic + Susc No growth to date Bacterial Culture, Aerobic + Susc [[id number]] Collected: 03/12/21 1234 Lab Status: Preliminary result Specimen: Pleural Fluid, Right Updated: 03/13/21 1133 Bacterial Culture, Aerobic + Susc No growth to date Bacterial Culture, Anaerobic + Susc [[id number]] Collected: 03/12/21 1234 Lab Status: In process Specimen: Pleural Fluid, Right Updated: 03/12/21 1308 Gram Stain [[id number]] Collected: 03/12/21 1234 Lab Status: Final result Specimen: Pleural Fluid, Right Updated: 03/12/21 1646 Gram Stain No organisms seen. White blood cells present. Stain performed on concentrated cytospin preparation. Gram Stain [[id number]] Collected: 03/12/21 1234 Lab Status: No result Specimen: Pleural Fluid, Right SARS Coronavirus-2 RNA, V Symptomatic [[id number]] Collected: 03/12/21 1100 Lab Status: Final result Specimen: Varies from Nasopharynx Updated: 03/12/21 1932 SARS-CoV-2 Specimen Source Swab, Nasopharynx SARS CoV-2 RNA, TMA Undetected Comment: SARS-CoV-2 RNA absent. This result does not rule out COVID-19 in the patient, as the sensitivity of the test depends on the timing of the specimen collection and the quality of the specimen. Result should be correlated with patient's history and clinical presentation. ----ADDITIONAL INFORMATION---- This molecular amplification test was performed using the Aptima SARS-CoV-2 assay ([employer] on the [employer] System under emergency use authorization (EUA) by the U.S. Food and Drug Administration. Fact sheets for this EUA assay can be found at the following links: For Healthcare Providers: https://www.fda.gov/media/109661/download For Patients: https://www.fda.gov/media/699454/download Influenza A/B and RSV, PCR, Varies [[id number]] Collected: 03/12/21 1100 Lab Status: Final result Specimen: Varies from Nasopharynx Updated: 03/13/21 1155 Influenza A/B and RSV, Source Swab, Nasopharynx Influenza A, PCR Undetected Comment: Influenza A RNA absent. Influenza B, PCR Undetected Comment: Influenza B RNA absent. Respiratory Syncytial Virus, PCR Undetected Comment: RSV RNA absent. ----ADDITIONAL INFORMATION---- This test has been modified from the sugar refiner's instructions. Its performance characteristics were determined by [facility] in a manner consistent with CLIA requirements. This test has not been cleared or approved by the U.S. Food and Drug Administration. Bacteria / Raudel Culture, Blood #2 [[id number]] Collected: 03/12/21 0710 Lab Status: Preliminary result Specimen: Blood, Peripheral Draw Updated: 03/13/21 0805 Bacteria/Raudel Culture, Blood No growth to date. MRSA PCR, Nasal [[id number]] Collected: 03/12/21622 Lab Status: Final result Specimen: Swab from Nares Updated: 03/12/21 1050 MRSA Screen, Nasal by PCR Negative Hepatitis B Surface Antigen [[id number]] Collected: 03/12/21557 Lab Status: Final result Specimen: Blood, Peripheral Draw Updated: 03/12/21 07 HBs Antigen, S Nonreactive Comment: Biotin has been identified by the sugar refiner as a potential interfering substance. Higher concentrations of biotin may be found in multivitamins, hair/nail supplements, and workout supplements. If the result does not match clinical observations, repeat testing after patient refrains from the use of supplements for at least 12 hours. Hepatitis B Core IgM Ab [[id number]] Collected: 03/12/21557 Lab Status: Final result Specimen: Blood, Peripheral Draw Updated: 03/13/21911 HBc IgM Ab, S Negative Hepatitis A IgM Ab, Serum [[id number]] Collected: 03/12/21557 Lab Status: Final result Specimen: Blood, Peripheral Draw Updated: 03/13/2151 Hepatitis A IgM Ab, S Negative Comment: Result does not exclude the possibility of exposure to hepatitis A virus. Antibody level during early infection stage may be below the limit of detection of the assay. HCV Ab w/Reflex to HCV PCR, Serum [[id number]] Collected: 03/12/21557 Lab Status: Final result Specimen: Blood, Peripheral Draw Updated: 03/13/21 09 HCV Ab, S Negative Comment: Cltbki-nt-fwcmzl ratio is <1.00. Bacteria / Raudel Culture, Blood #1 [[id number]] Collected: 03/12/21556 Lab Status: Preliminary result Specimen: Blood, Peripheral Draw Updated: 03/13/21 07 Bacteria/Raudel Culture, Blood No growth to date. Radiology: CT Abdomen Pelvis with IV Contrast Final Result 1. Newly identified CHF, with associated compressive atelectasis at each lung base. 2. Stable abdominal ascites with no identified area of hemorrhage. 3. Newly identified anasarca. 4. Heterogeneous appearance of the liver with splenomegaly, the combination of findings suggestive of hepatic inflammation. Clinical correlation is recommended. DX Chest Portable 1 View Final Result Persistent areas of bibasilar atelectasis or infiltrate more prominent on the right. DX Chest Portable 1 View Final Result Persistent right basilar infiltrate or atelectasis. CT Chest with IV Contrast Final Result 1. Partial atelectasis of the bilateral lower lobes. Difficult to exclude superimposed infiltrates in the atelectatic lungs. Two subtle small areas of groundglass attenuation in the left upper lobe and right middle lobe, favored to represent minimal infectious/inflammatory change. 2. Moderate volume ascites. Small foci of intra-abdominal gas in the right anterior abdomen, in the setting of reported recent paracentesis. Small right pleural effusion. 3. Proximal large bowel distention with mixed attenuation stool/fluid suggesting possible functional obstruction. No evidence of mechanical large bowel obstruction. 4. Mild large bowel wall thickening, that may be related to fluid third spacing or possible colitis. No pneumatosis. 5. Small appearing pancreas with pancreatic head calcifications, suggesting sequelae of chronic pancreatitis. Splenomegaly. Patent portal and splenic veins. 6. Malpositioned appearing intrauterine contraceptive device. 7. Subacute appearing fracture of right anterior fifth rib. CT Abdomen Pelvis with IV Contrast Final Result 1. Partial atelectasis of the bilateral lower lobes. Difficult to exclude superimposed infiltrates in the atelectatic lungs. Two subtle small areas of groundglass attenuation in the left upper lobe and right middle lobe, favored to represent minimal infectious/inflammatory change. 2. Moderate volume ascites. Small foci of intra-abdominal gas in the right anterior abdomen, in the setting of reported recent paracentesis. Small right pleural effusion. 3. Proximal large bowel distention with mixed attenuation stool/fluid suggesting possible functional obstruction. No evidence of mechanical large bowel obstruction. 4. Mild large bowel wall thickening, that may be related to fluid third spacing or possible colitis. No pneumatosis. 5. Small appearing pancreas with pancreatic head calcifications, suggesting sequelae of chronic pancreatitis. Splenomegaly. Patent portal and splenic veins. 6. Malpositioned appearing intrauterine contraceptive device. 7. Subacute appearing fracture of right anterior fifth rib. CT Head without IV Contrast Final Result No acute CT abnormalities are demonstrated. DX Chest Portable 1 View Final Result 1. New endotracheal tube with tip positioned appropriately at the level of the clavicular heads. 2. New right IJ central venous catheter with tip positioned in the mid SVC. 3. New nasogastric tube with tip positioned in the mid stomach. 4. No pneumothorax status post right thoracentesis. 5. Marked interval decrease in right pleural effusion with associated atelectasis. 6. No acute airspace disease. DX Chest Portable 1 View Final Result Large right pleural effusion and right-sided consolidation. Centrally obstructing process within bronchus is not excluded. US Pelvis Transvaginal and Transabdominal (Results Pending) DX Chest Portable 1 View (Results Pending) DX Chest Portable 1 View (Results Pending) DX Chest Portable 1 View (Results Pending) ASSESSMENT / PLAN 1. Acute encephalopathy secondary to hepatic etiology. Likely this has been precipitated by some underlying infection which could be spontaneous bacterial peritonitis versus pneumonia. 2. Acute respiratory insufficiency secondary to altered mental status requiring intubation and mechanical ventilation 3. 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 Anemia most likely related to chronic blood loss. Medical decision making; 1. Neuro: No signs of encephalopathy. Patient is alert and oriented. Continue with Rifaxamin and lactulose with a goal of 400-800 cc of stool every 24 hours. 2. Respiratory: Patient is oxygenating well on RA. Continue aggressive pulmonary hygeine. Bibasilar pneumonia- on abx. 3. GI: Alcoholic cirrhosis - undergoing workup to rule out other causes. Continue tx for hepatic encephalopathy and SBP. -She will need indefinite prophylaxis for SBP. - No need for EGD as per GI. No paracentesis as she had 2 Liter of output - Bleeding at the paracentesis site was likely due to superficial vessel bleeding. This has resolvedafter surgery placed some sutures. Patient has received a total of 5 units PRBC and 4 units of FFP over last 24 hours. H/H has been stable post sutures - MELD score is 25 4. ID Continue broad-spectrum antibiotic therapy for pneumonia/possible spontaneous bacterial peritonitis 5. Renal UO appears to be better. Continue scheduled Albumin and lasix. 6. Disp: Will transfer the patient out of the ICU. Sign out given to hospitalist. Lizet Navarro M.D. DUMPER Ulises Valle M.B.B.S. - 03/16/2021 5:30 PM CST The patient was accepted to Medicine service on 03/16/2021. The patient was managed for the following below: #Acute encephalopathy secondary to hepatic etiology. #Spontaneous bacterial peritonitis versus pneumonia. #Acute respiratory insufficiency secondary to AMS #Requiring intubation and mechanical ventilation #Hepatic cirrhosis most likely related to alcohol consumption #Acute blood Anemia secondary to paracentesis site bleeding, hemostasis achieved. Please refer to the detailed note written by the intensive care for more details on the specifics ofthe plan. DUMPER Kerry Naranjo APRN, C.N.P., M.S.N. - 03/16/2021 11:31 AM CST Patient seen briefly. No acute concerns for GI to address. Did discuss with the nurse Hilda to taper lactulose dose to have no more than 1-1.5 L of liquid stool out. We will otherwise sign off. Please call with questions. Thank you for allowing us to be a part of this patient's care. Patient case and plan of care was discussed with the Gastroenterology attending provider, Dr Polanco and Dr. Navarro ICU attending. Kerry Naranjo APRN, Katrin.Sera.Frances, M.S.N. DUMPER Daron Cochran, D., R.Ph. - 03/16/2021 9:20 AM CST Pharmacist Progress Note Reason for admission: AMS and hypoxia PMH: recently diagnosed liver cirrhosis (unknown etiology, possibly alcohol) - elevated LFTs + ascites (4 L removed from paracentesis ~3 weeks ago), recurrent pancreatitis, ADHD, marijuana use OBJECTIVE Home medications: med rec not completed at this time ?? Held: n/a ?? Changed: n/a Patient own medications: n/a Prophylaxis: DVT: Cirrhosis. INR of 2.1. No need for heparin. SUP: pantoprazole 40mg IV BID Microbiology Results (last 10 days) Procedure Component Value - Date/Time Gram Stain [[id number]] Collected: 03/12/21 1548 Lab Status: Final result Specimen: Peritoneal Fluid Updated: 03/12/211821 Gram Stain No organisms seen. White blood cells present. Stain performed on concentrated cytospin preparation. Bacterial Culture, Anaerobic + Susc [[id number]] Collected: 03/12/21 1546 Lab Status: Preliminary result Specimen: Peritoneal Fluid Updated: 03/14/21 0523 Bacterial Culture, Anaerobic No growth to date. Bacterial Culture, Aerobic + Susc [[id number]] Collected: 03/12/21 1546 Lab Status: Preliminary result Specimen: Peritoneal Fluid Updated: 03/13/21 1129 Bacterial Culture, Aerobic + Susc No growth to date Bacterial Culture, Aerobic + Susc [[id number]] Collected: 03/12/21 1234 Lab Status: Preliminary result Specimen: Pleural Fluid, Right Updated: 03/13/21 1133 Bacterial Culture, Aerobic + Susc No growth to date Bacterial Culture, Anaerobic + Susc [[id number]] Collected: 03/12/21 1234 Lab Status: Preliminary result Specimen: Pleural Fluid, Right Updated: 03/14/21 0523 Bacterial Culture, Anaerobic No growth to date. Gram Stain [[id number]] Collected: 03/12/21 1234 Lab Status: Final result Specimen: Pleural Fluid, Right Updated: 03/12/21 1646 Gram Stain No organisms seen. White blood cells present. Stain performed on concentrated cytospin preparation. Gram Stain [[id number]] Collected: 03/12/21 1234 Lab Status: No result Specimen: Pleural Fluid, Right SARS Coronavirus-2 RNA, V Symptomatic [[id number]] Collected: 03/12/21 1100 Lab Status: Final result Specimen: Varies from Nasopharynx Updated: 03/12/21 193 SARS-CoV-2 Specimen Source Swab, Nasopharynx SARS CoV-2 RNA, TMA Undetected Comment: SARS-CoV-2 RNA absent. This result does not rule out COVID-19 in the patient, as the sensitivity of the test depends on the timing of the specimen collection and the quality of the specimen. Result should be correlated with patient's history and clinical presentation. ----ADDITIONAL INFORMATION---- This molecular amplification test was performed using the Aptima SARS-CoV-2 assay ([employer] on the [employer] System under emergency use authorization (EUA) by the U.S. Food and Drug Administration. Fact sheets for this EUA assay can be found at the following links: For Healthcare Providers: https://www.fda.gov/media/665245/download For Patients: https://www.fda.gov/media/889058/download Influenza A/B and RSV, PCR, Varies [[id number]] Collected: 03/12/21 1100 Lab Status: Final result Specimen: Varies from Nasopharynx Updated: 03/13/21 1155 Influenza A/B and RSV, Source Swab, Nasopharynx Influenza A, PCR Undetected Comment: Influenza A RNA absent. Influenza B, PCR Undetected Comment: Influenza B RNA absent. Respiratory Syncytial Virus, PCR Undetected Comment: RSV RNA absent. ----ADDITIONAL INFORMATION---- This test has been modified from the sugar refiner's instructions. Its performance characteristics were determined by [facility] in a manner consistent with CLIA requirements. This test has not been cleared or approved by the U.S. Food and Drug Administration. Bacteria / Raudel Culture, Blood #2 [[id number]] Collected: 03/12/21 0710 Lab Status: Preliminary result Specimen: Blood, Peripheral Draw Updated: 03/16/21 0805 Bacteria/Raudel Culture, Blood No growth to date. MRSA PCR, Nasal [[id number]] Collected: 03/12/21 0623 Lab Status: Final result Specimen: Swab from Nares Updated: 03/12/21 1050 MRSA Screen, Nasal by PCR Negative Hepatitis B Surface Antigen [[id number]] Collected: 03/12/21557 Lab Status: Final result Specimen: Blood, Peripheral Draw Updated: 03/12/21 0744 HBs Antigen, S Nonreactive Comment: Biotin has been identified by the sugar refiner as a potential interfering substance. Higher concentrations of biotin may be found in multivitamins, hair/nail supplements, and workout supplements. If the result does not match clinical observations, repeat testing after patient refrains from the use of supplements for at least 12 hours. Hepatitis B Core IgM Ab [[id number]] Collected: 03/12/21557 Lab Status: Final result Specimen: Blood, Peripheral Draw Updated: 03/13/21911 HBc IgM Ab, S Negative Hepatitis A IgM Ab, Serum [[id number]] Collected: 03/12/21557 Lab Status: Final result Specimen: Blood, Peripheral Draw Updated: 11/11/21 0951 Hepatitis A IgM Ab, S Negative Comment: Result does not exclude the possibility of exposure to hepatitis A virus. Antibody level during early infection stage may be below the limit of detection of the assay. HCV Ab w/Reflex to HCV PCR, Serum [[id number]] Collected: 03/12/21 0558 Lab Status: Final result Specimen: Blood, Peripheral Draw Updated: 03/13/21 0925 HCV Ab, S Negative Comment: Iqqshh-tc-djwnca ratio is <1.00. Bacteria / Raudel Culture, Blood #1 [[id number]] Collected: 03/12/21 0557 Lab Status: Preliminary result Specimen: Blood, Peripheral Draw Updated: 03/16/21 0705 Bacteria/Raudel Culture, Blood No growth to date. ASSESSMENT / PLAN 1. Liver cirrhosis/ascites/encephalopathy ?? Lactulose 30 gm TID ?? 200 g x1 given 03/12 ?? Ammonia 110 (03/13), 127 (03/12) ?? Octreotide 25 mL/hr set to stop 03/16 ?? Albumin 25 gm q6h ?? Pantoprazole 40 mg IV q12h ?? On normal diet, however continues to have diarrhea. Keep IV meds for now. 2. Intra-abdominal infection/SBP PPX ?? Day 5 Zosyn + doxy (stop date of 03/17/21) ?? Ceftriaxone set to start 03/18 for SBP px. Will need chronic oral SBP prophylaxis. ?? Rifaximin 550 mg BID starting 03/13 3. Mechanical ventilation ?? Sedation: ?? Propofol stopped 03/14 ?? T (03/13) ?? Precedex: stopped 03/14 ?? Pressors: ?? Norepi drip stopped ?? Vasopressin continues at 0.04 units/min 4. Tox screen ?? Unconfirmed positive for oxycodone and THC; negative for all other ?? Ethanol <10 Changes to medications anticipated at discharge: oral SBP prophylaxis Virginie Valerio, Pharm.D., R.Ph. DUMPER Lizet Navarro M.D. - 03/15/2021 1:19 PM CST SUBJECTIVE CHIEF COMPLAINT/REASON FOR VISIT Acute hepatic encephalopathy HISTORY OF PRESENT ILLNESS Catia Carias is a 30-year-old female who has been admitted with acute on chronic liver failure. Apparently she has history of alcohol abuse in the past. She presented altered mental sensorium and wasintubated and mechanically ventilated. Patient had elevated ammonia. She underwent thoracentesis and paracentesis. Patient had elevated neutrophil count in the pleural fluid but not in the ascitic fluid. She also appeared to have some coffee-ground aspirate from the NG tube. She has required some blood transfusion for anemia and also lactulose to help further hepatic encephalopathy. INTERVAL EVENTS: Patient was extubated yesterday. She has bleeding at previous paracentesis site. S/p 1 unit PRBC today. Remains hemodynamically stable. CURRENT MEDICATIONS Scheduled Medications: albumin human, 25 g, intravenous, Q6H [place] [START ON 03/18/2021] cefTRIAXone, 2 g, intravenous, Daily doxycycline, 100 mg, intravenous, Q12H [place] folic acid, 1 mg, oral, Daily furosemide, 20 mg, intravenous, Q24H [place] insulin aspart, 0-7 Units, subcutaneous, Q6H [place] ketamine, 100 mg, intravenous, Once lactulose, 30 g, gastric tube, TID pantoprazole, 40 mg, intravenous, Q12H [place] phytonadione (vitamin K1), 10 mg, intravenous, Daily piperacillin-tazobactam, 3.375 g, intravenous, Q6H [place] rifAXIMin, 550 mg, oral, BID sodium chloride, 5-15 mL, intravenous, Q12H [place] thiamine, 100 mg, oral, Daily Continuous Infusions: octreotide 2 mcg/mL in NaCl 0.9% 250 mL infusion (SandoSTATIN), 25 mcg/hr, Last Rate: 25 mcg/hr (03/15/21 1100) PRN Medications: NaCl 0.9% ??? NaCl 0.9% ??? NaCl 0.9% ??? naloxone ??? oxyCODONE ??? sodium chloride ??? sodium chloride OBJECTIVE VITAL SIGNS BP 127/55 Pulse 97 Temp 37.8 ??C Resp (!) 32 Ht 157.5 cm Wt 60.5 kg SpO2 94% BMI 24.40kg/m?? PHYSICAL EXAMINATION General: Alert and appears comfortable. She is cachectic HEENT: Normocephalic, atraumatic. No scleral icterus. Oral mucosa moist. Neck: Supple. No lymphadenopathy. Cardiovascular: Normal S1/S2. No murmurs. Lungs: Clear to auscultation bilaterally. Abdomen: Soft, NT, ND, +BS. Ascites is present , + blood at previous paracentesis site. Extremities: No BLE edema. Neurological: she is cachectic Intake/Output Summary (Last 24 hours) at 03/15/2021 1319 Last data filed at 03/15/2021 1300 Gross per 24 hour Intake 3373.41 ml Output 4050 ml Net -676.59 ml DIAGNOSTICS Labs: Recent Results (from the past 24 hour(s)) Glucose, POCT Collection Time: 03/14/21 6:25 PM Result Value Glucose, POCT, B 140 Glucose, POCT Collection Time: 03/14/21 11:43 PM Result Value Glucose, POCT, B 122 CBC without Differential Collection Time: 03/15/21 4:18 AM Result Value Hemoglobin 6.9 (L) Hematocrit 20.5 (L) Erythrocytes 2.11 (L) MCV 97.2 RBC Distrib Width 22.5 (H) Platelet Count 86 (L) Leukocytes 6.3 Comprehensive Metabolic Panel Collection Time: 03/15/21 4:18 AM Result Value Potassium, P 2.7 (L) Sodium, P 140 Chloride, P 107 Bicarbonate, P 20 (L) Anion Gap, P 13 BUN (Blood Urea Nitrogen), P 11 Creatinine, P 0.55 (L) eGFR-Black/ >90 eGFR Non-Black/ >90 Calcium, Total, P 9.1 Glucose, P 127 Protein, Total, P 5.7 (L) Albumin, P 4.3 Aspartate Aminotransferase (AST), P 38 Alkaline Phosphatase, P 50 Alanine Aminotransferase (ALT), P 9 Bilirubin, Total, P 5.6 (H) Prothrombin Time (PT) Collection Time: 03/15/21 4:18 AM Result Value Prothrombin Time, P 26.3 (H) INR 2.3 Phosphorus Inorganic Collection Time: 03/15/21 4:18 AM Result Value Phosphorus (Inorganic), P 2.1 (L) Magnesium Collection Time: 03/15/21 4:18 AM Result Value Magnesium, P 1.7 Glucose, POCT Collection Time: 03/15/21 6:14 AM Result Value Glucose, POCT, B 116 Glucose, POCT Collection Time: 03/15/21 11:57 AM Result Value Glucose, POCT, B 119 Micro: Microbiology Results (last 72 hours) Procedure Component Value - Date/Time Gram Stain [[id number]] Collected: 03/12/21 1546 Lab Status: Final result Specimen: Peritoneal Fluid Updated: 03/12/21 1822 Gram Stain No organisms seen. White blood cells present. Stain performed on concentrated cytospin preparation. Bacterial Culture, Anaerobic + Susc [[id number]] Collected: 03/12/21 1546 Lab Status: In process Specimen: Peritoneal Fluid Updated: 03/12/21 1548 Bacterial Culture, Aerobic + Susc [[id number]] Collected: 03/12/21 1546 Lab Status: Preliminary result Specimen: Peritoneal Fluid Updated: 03/13/21 1129 Bacterial Culture, Aerobic + Susc No growth to date Bacterial Culture, Aerobic + Susc [[id number]] Collected: 03/12/21 1234 Lab Status: Preliminary result Specimen: Pleural Fluid, Right Updated: 03/13/21 1133 Bacterial Culture, Aerobic + Susc No growth to date Bacterial Culture, Anaerobic + Susc [[id number]] Collected: 03/12/21 1234 Lab Status: In process Specimen: Pleural Fluid, Right Updated: 03/12/21 1308 Gram Stain [[id number]] Collected: 03/12/21 1234 Lab Status: Final result Specimen: Pleural Fluid, Right Updated: 03/12/21 1646 Gram Stain No organisms seen. White blood cells present. Stain performed on concentrated cytospin preparation. Gram Stain [[id number]] Collected: 03/12/21 1234 Lab Status: No result Specimen: Pleural Fluid, Right SARS Coronavirus-2 RNA, V Symptomatic [[id number]] Collected: 03/12/21 1100 Lab Status: Final result Specimen: Varies from Nasopharynx Updated: 03/12/21 193 SARS-CoV-2 Specimen Source Swab, Nasopharynx SARS CoV-2 RNA, TMA Undetected Comment: SARS-CoV-2 RNA absent. This result does not rule out COVID-19 in the patient, as the sensitivity of the test depends on the timing of the specimen collection and the quality of the specimen. Result should be correlated with patient's history and clinical presentation. ----ADDITIONAL INFORMATION---- This molecular amplification test was performed using the Aptima SARS-CoV-2 assay ([employer] on the [employer] System under emergency use authorization (EUA) by the U.S. Food and Drug Administration. Fact sheets for this EUA assay can be found at the following links: For Healthcare Providers: https://www.fda.gov/media/498093/download For Patients: https://www.fda.gov/media/939787/download Influenza A/B and RSV, PCR, Varies [[id number]] Collected: 03/12/21 1100 Lab Status: Final result Specimen: Varies from Nasopharynx Updated: 03/13/21 1155 Influenza A/B and RSV, Source Swab, Nasopharynx Influenza A, PCR Undetected Comment: Influenza A RNA absent. Influenza B, PCR Undetected Comment: Influenza B RNA absent. Respiratory Syncytial Virus, PCR Undetected Comment: RSV RNA absent. ----ADDITIONAL INFORMATION---- This test has been modified from the sugar refiner's instructions. Its performance characteristics were determined by [facility] in a manner consistent with CLIA requirements. This test has not been cleared or approved by the U.S. Food and Drug Administration. Bacteria / Raudel Culture, Blood #2 [[id number]] Collected: 03/12/21 0710 Lab Status: Preliminary result Specimen: Blood, Peripheral Draw Updated: 03/13/21 0805 Bacteria/Raudel Culture, Blood No growth to date. MRSA PCR, Nasal [[id number]] Collected: 03/12/21 0623 Lab Status: Final result Specimen: Swab from Nares Updated: 03/12/21 1050 MRSA Screen, Nasal by PCR Negative Hepatitis B Surface Antigen [[id number]] Collected: 03/12/21557 Lab Status: Final result Specimen: Blood, Peripheral Draw Updated: 03/12/21 0744 HBs Antigen, S Nonreactive Comment: Biotin has been identified by the sugar refiner as a potential interfering substance. Higher concentrations of biotin may be found in multivitamins, hair/nail supplements, and workout supplements. If the result does not match clinical observations, repeat testing after patient refrains from the use of supplements for at least 12 hours. Hepatitis B Core IgM Ab [[id number]] Collected: 03/12/21557 Lab Status: Final result Specimen: Blood, Peripheral Draw Updated: 03/13/21911 HBc IgM Ab, S Negative Hepatitis A IgM Ab, Serum [[id number]] Collected: 03/12/21557 Lab Status: Final result Specimen: Blood, Peripheral Draw Updated: 03/13/21950 Hepatitis A IgM Ab, S Negative Comment: Result does not exclude the possibility of exposure to hepatitis A virus. Antibody level during early infection stage may be below the limit of detection of the assay. HCV Ab w/Reflex to HCV PCR, Serum [[id number]] Collected: 03/12/21557 Lab Status: Final result Specimen: Blood, Peripheral Draw Updated: 03/13/21924 HCV Ab, S Negative Comment: Juggxy-cy-qexjpe ratio is <1.00. Bacteria / Raudel Culture, Blood #1 [[id number]] Collected: 03/12/21556 Lab Status: Preliminary result Specimen: Blood, Peripheral Draw Updated: 03/13/21704 Bacteria/Raudel Culture, Blood No growth to date. Radiology: DX Chest Portable 1 View Final Result Persistent areas of bibasilar atelectasis or infiltrate more prominent on the right. DX Chest Portable 1 View Final Result Persistent right basilar infiltrate or atelectasis. CT Chest with IV Contrast Final Result 1. Partial atelectasis of the bilateral lower lobes. Difficult to exclude superimposed infiltrates in the atelectatic lungs. Two subtle small areas of groundglass attenuation in the left upper lobe and right middle lobe, favored to represent minimal infectious/inflammatory change. 2. Moderate volume ascites. Small foci of intra-abdominal gas in the right anterior abdomen, in the setting of reported recent paracentesis. Small right pleural effusion. 3. Proximal large bowel distention with mixed attenuation stool/fluid suggesting possible functional obstruction. No evidence of mechanical large bowel obstruction. 4. Mild large bowel wall thickening, that may be related to fluid third spacing or possible colitis. No pneumatosis. 5. Small appearing pancreas with pancreatic head calcifications, suggesting sequelae of chronic pancreatitis. Splenomegaly. Patent portal and splenic veins. 6. Malpositioned appearing intrauterine contraceptive device. 7. Subacute appearing fracture of right anterior fifth rib. CT Abdomen Pelvis with IV Contrast Final Result 1. Partial atelectasis of the bilateral lower lobes. Difficult to exclude superimposed infiltrates in the atelectatic lungs. Two subtle small areas of groundglass attenuation in the left upper lobe and right middle lobe, favored to represent minimal infectious/inflammatory change. 2. Moderate volume ascites. Small foci of intra-abdominal gas in the right anterior abdomen, in the setting of reported recent paracentesis. Small right pleural effusion. 3. Proximal large bowel distention with mixed attenuation stool/fluid suggesting possible functional obstruction. No evidence of mechanical large bowel obstruction. 4. Mild large bowel wall thickening, that may be related to fluid third spacing or possible colitis. No pneumatosis. 5. Small appearing pancreas with pancreatic head calcifications, suggesting sequelae of chronic pancreatitis. Splenomegaly. Patent portal and splenic veins. 6. Malpositioned appearing intrauterine contraceptive device. 7. Subacute appearing fracture of right anterior fifth rib. CT Head without IV Contrast Final Result No acute CT abnormalities are demonstrated. DX Chest Portable 1 View Final Result 1. New endotracheal tube with tip positioned appropriately at the level of the clavicular heads. 2. New right IJ central venous catheter with tip positioned in the mid SVC. 3. New nasogastric tube with tip positioned in the mid stomach. 4. No pneumothorax status post right thoracentesis. 5. Marked interval decrease in right pleural effusion with associated atelectasis. 6. No acute airspace disease. DX Chest Portable 1 View Final Result Large right pleural effusion and right-sided consolidation. Centrally obstructing process within bronchus is not excluded. US Pelvis Transvaginal and Transabdominal (Results Pending) DX Chest Portable 1 View (Results Pending) DX Chest Portable 1 View (Results Pending) DX Chest Portable 1 View (Results Pending) DX Chest Portable 1 View (Results Pending) ASSESSMENT / PLAN 1. Acute encephalopathy secondary to hepatic etiology. Likely this has been precipitated by some underlying infection which could be spontaneous bacterial peritonitis versus pneumonia. 2. Acute respiratory insufficiency secondary to altered mental status requiring intubation and mechanical ventilation 3. 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 Anemia most likely related to chronic blood loss. Medical decision making; 1. Neuro: No signs of encephalopathy. Patient is alert and oriented. Continue with Rifaxamin and lactulose with a goal of 400-800 cc of stool every 24 hours. 2. Respiratory: She was extubated yesterday. Now oxygenating well on 5 lpm via nasal canula. Continue aggressive pulmonary hygeine. Bibasilar pneumonia- on abx. 3. GI: Alcoholic cirrhosis - undergoing workup to rule out other causes. Continue tx for hepatic encephalopathy and SBP. -She will need indefinite prophylaxis for SBP. - No need for EGD as per GI. Will d/c Octreotide after a total of 72 hours - this will be in the AM of 03/16. Will d/c Vasopressin. - Will hold off on paracentesis today - There is bleeding at the paracentesis site. Will transfuse FFP and see if it stops. INR is elevated. Otherwise, will place sutures. Further decrease in H/H might warrant CT abdomen/pelvis to assess for hematoma. - MELD score is 25 4. ID Continue broad-spectrum antibiotic therapy for pneumonia/possible spontaneous bacterial peritonitis 5. Renal UO appears to be better. Continue scheduled Albumin and lasix. Total critical care time 35 min Lizet Navarro M.D. DUMPER Kerry Naranjo APRN, C.N.P., M.S.N. - 03/15/2021 12:41 PM CST SUBJECTIVE Catia Carias reports having no nausea, vomiting and abdominal pain. Her symptoms are improving.She no longer is intubated, with extubated yesterday afternoon. Discussed with her need for follow-up in the GI clinic with rug layer; she is interested in that appointment I will enter the order. To meagan bilirubin down trending from 6.1/6.0 and today 5.6 other liver enzymes have normalized. Do note hemoglobin of 6.9 as a down trend from 7.9 and 8.0. OBJECTIVE Admission Weight: 54.2 kg Current Weight: 60.5 kg Vital Signs Weight: 60.5 kg, BMI (Calculated): 24.4 kg/m??, Blood Pressure: 127/55, Heart Rate: 92, Pulse Rate: 92, Resp Rate: 17, Temperature: 36.8 ??C, SpO2: 94 % PHYSICAL EXAM BP 127/55 Pulse 92 Temp 36.8 ??C (Temporal) Resp 17 Ht 157.5 cm Wt 60.5 kg SpO2 94% BMI 24.40 kg/m?? General appearance: alert, appears stated age and cooperative Head: Normocephalic, without obvious abnormality, atraumatic Eyes: negative Lungs: clear to auscultation bilaterally Heart: Regular rate Abdomen: soft, non-tender; bowel sounds normal; no masses, no organomegaly Skin: Skin color, texture, turgor normal. No rashes or lesions. Neurologic: Grossly normal DIAGNOSTICS I have reviewed labs. Lab results last 24 hours: Recent Results (from the past 24 hour(s)) Glucose, POCT Collection Time: 03/14/21 6:25 PM Result Value Glucose, POCT, B 140 Glucose, POCT Collection Time: 03/14/21 11:43 PM Result Value Glucose, POCT, B 122 CBC without Differential Collection Time: 03/15/21 4:18 AM Result Value Hemoglobin 6.9 (L) Hematocrit 20.5 (L) Erythrocytes 2.11 (L) MCV 97.2 RBC Distrib Width 22.5 (H) Platelet Count 86 (L) Leukocytes 6.3 Comprehensive Metabolic Panel Collection Time: 03/15/21 4:18 AM Result Value Potassium, P 2.7 (L) Sodium, P 140 Chloride, P 107 Bicarbonate, P 20 (L) Anion Gap, P 13 BUN (Blood Urea Nitrogen), P 11 Creatinine, P 0.55 (L) eGFR-Black/ >90 eGFR Non-Black/ >90 Calcium, Total, P 9.1 Glucose, P 127 Protein, Total, P 5.7 (L) Albumin, P 4.3 Aspartate Aminotransferase (AST), P 38 Alkaline Phosphatase, P 50 Alanine Aminotransferase (ALT), P 9 Bilirubin, Total, P 5.6 (H) Prothrombin Time (PT) Collection Time: 03/15/21 4:18 AM Result Value Prothrombin Time, P 26.3 (H) INR 2.3 Phosphorus Inorganic Collection Time: 03/15/21 4:18 AM Result Value Phosphorus (Inorganic), P 2.1 (L) Magnesium Collection Time: 03/15/21 4:18 AM Result Value Magnesium, P 1.7 Glucose, POCT Collection Time: 03/15/21 6:14 AM Result Value Glucose, POCT, B 116 Glucose, POCT Collection Time: 03/15/21 11:57 AM Result Value Glucose, POCT, B 119 ASSESSMENT / PLAN 1. Decompensated Cirrhosis - etiology likely alcohol related vs fatty liver vs pending further workup 2. Ascites 3. Hepatomegaly, Splenomegaly 4. Jaundice 5. Coagulopathy 6. Anema, macrocytic 7. Thrombocytopenia 8. Elevated liver enzymes, direct hyperbilirubinemia 9. Altered Mental Status - elevated ammonia, hepatic encepholopathy 10. Coffee-ground NG tube output 11. Leukocytosis, Fever 12.??Muscle wasting, cachexia 13. At risk for HCC 14. History of multiple episodes of pancreatitis, chronic pancreatitis ??MELD-Na score: 22 at 03/15/2021 4:18 AM MELD score: 22 at 03/15/2021 4:18 AM Calculated from: Serum Creatinine: 0.55 mg/dL (Using min of 1 mg/dL) at 03/15/2021 4:18 AM Serum Sodium: 140 mmol/L (Using max of 137 mmol/L) at 03/15/2021 4:18 AM Total Bilirubin: 5.6 mg/dL at 03/15/2021 4:18 AM INR(ratio): 2.3 at 03/15/2021 4:18 AM Age: 30 years PREVIOUS: MELD-Na score: 24 at 03/14/2021 9:22 AM MELD score: 23 at 03/14/2021 9:22 AM MELD-Na score: 25 at 03/12/2021 ??5:57 AM MELD score: 22 at 03/12/2021 ??5:57 AM Recommendations: - For prolonged PT INR have ordered vitamin K 10 mg IV infusion for 3 days; 03/14/2021 was day 1 of 3 - Continue octreotide drip and IV PPI BID - No plan for EGD at this time, pending further workup may consider, please contact GI team of active bleeding noted. - Monitor and replete electrolytes per primary team - Continue lactulose TID. Titrate to 3-4 bowel movements per day. - for future paracentesis would recommend Replace 25% albumin at 8g/L fluid removed. Likely need indefinite SBP prophylaxis. Additional labs sent to evaluate for other etiology of chronic liver disease - Ethyl glucuronide was negative - ceruloplasmin slightly low at 16.5 - autoimmune hepatitis panel negative - alpha 1 antitrypsin negative - Viral hepatitis A/B/C all negative ?? Please call with questions. Thank you for allowing us to be a part of this patient's care. We will otherwise sign off for now. Patient case and plan of care was discussed with the Gastroenterology attending provider, Dr. Polanco. I personally spent over half of a total??35??minutes face to face with the patient in counseling and discussion and/or coordination of care as described above. ?? Kerry Naranjo APRN, C.N.P., M.S.N. Gastroenterology and Hepatology [facility] DUMPER Daron Cochran, DSuma, R.Ph. - 03/15/2021 9:05 AM CST Pharmacist Progress Note Reason for admission: AMS and hypoxia PMH: recently diagnosed liver cirrhosis (unknown etiology, possibly alcohol) - elevated LFTs + ascites (4 L removed from paracentesis ~3 weeks ago), recurrent pancreatitis, ADHD, marijuana use OBJECTIVE Home medications: med rec not completed at this time ?? Held: n/a ?? Changed: n/a Patient own medications: n/a Prophylaxis: DVT: heparin 5000 units subcut q8h SUP: pantoprazole 40mg IV BID Microbiology Results (last 10 days) Procedure Component Value - Date/Time Gram Stain [[id number]] Collected: 03/12/211545 Lab Status: Final result Specimen: Peritoneal Fluid Updated: 03/12/21 182 Gram Stain No organisms seen. White blood cells present. Stain performed on concentrated cytospin preparation. Bacterial Culture, Anaerobic + Susc [[id number]] Collected: 03/12/21 154 Lab Status: Preliminary result Specimen: Peritoneal Fluid Updated: 03/14/21 0523 Bacterial Culture, Anaerobic No growth to date. Bacterial Culture, Aerobic + Susc [[id number]] Collected: 03/12/21 1546 Lab Status: Preliminary result Specimen: Peritoneal Fluid Updated: 03/13/21 1129 Bacterial Culture, Aerobic + Susc No growth to date Bacterial Culture, Aerobic + Susc [[id number]] Collected: 03/12/21 1234 Lab Status: Preliminary result Specimen: Pleural Fluid, Right Updated: 03/13/21 1133 Bacterial Culture, Aerobic + Susc No growth to date Bacterial Culture, Anaerobic + Susc [[id number]] Collected: 03/12/21 1234 Lab Status: Preliminary result Specimen: Pleural Fluid, Right Updated: 03/14/21 0523 Bacterial Culture, Anaerobic No growth to date. Gram Stain [[id number]] Collected: 03/12/21 1234 Lab Status: Final result Specimen: Pleural Fluid, Right Updated: 03/12/21 1646 Gram Stain No organisms seen. White blood cells present. Stain performed on concentrated cytospin preparation. Gram Stain [[id number]] Collected: 03/12/21 123 Lab Status: No result Specimen: Pleural Fluid, Right SARS Coronavirus-2 RNA, V Symptomatic [[id number]] Collected: 03/12/21 1100 Lab Status: Final result Specimen: Varies from Nasopharynx Updated: 03/12/21 193 SARS-CoV-2 Specimen Source Swab, Nasopharynx SARS CoV-2 RNA, TMA Undetected Comment: SARS-CoV-2 RNA absent. This result does not rule out COVID-19 in the patient, as the sensitivity of the test depends on the timing of the specimen collection and the quality of the specimen. Result should be correlated with patient's history and clinical presentation. ----ADDITIONAL INFORMATION---- This molecular amplification test was performed using the Aptima SARS-CoV-2 assay ([employer] on the [employer] System under emergency use authorization (EUA) by the U.S. Food and Drug Administration. Fact sheets for this EUA assay can be found at the following links: For Healthcare Providers: https://www.fda.gov/media/018594/download For Patients: https://www.fda.gov/media/473126/download Influenza A/B and RSV, PCR, Varies [[id number]] Collected: 03/12/21 1100 Lab Status: Final result Specimen: Varies from Nasopharynx Updated: 03/13/21 1155 Influenza A/B and RSV, Source Swab, Nasopharynx Influenza A, PCR Undetected Comment: Influenza A RNA absent. Influenza B, PCR Undetected Comment: Influenza B RNA absent. Respiratory Syncytial Virus, PCR Undetected Comment: RSV RNA absent. ----ADDITIONAL INFORMATION---- This test has been modified from the sugar refiner's instructions. Its performance characteristics were determined by [facility] in a manner consistent with CLIA requirements. This test has not been cleared or approved by the U.S. Food and Drug Administration. Bacteria / Raudel Culture, Blood #2 [[id number]] Collected: 03/12/21709 Lab Status: Preliminary result Specimen: Blood, Peripheral Draw Updated: 03/15/21804 Bacteria/Raudel Culture, Blood No growth to date. MRSA PCR, Nasal [[id number]] Collected: 03/12/21622 Lab Status: Final result Specimen: Swab from Nares Updated: 03/12/21 105 MRSA Screen, Nasal by PCR Negative Hepatitis B Surface Antigen [[id number]] Collected: 03/12/21557 Lab Status: Final result Specimen: Blood, Peripheral Draw Updated: 03/12/21743 HBs Antigen, S Nonreactive Comment: Biotin has been identified by the sugar refiner as a potential interfering substance. Higher concentrations of biotin may be found in multivitamins, hair/nail supplements, and workout supplements. If the result does not match clinical observations, repeat testing after patient refrains from the use of supplements for at least 12 hours. Hepatitis B Core IgM Ab [[id number]] Collected: 03/12/21557 Lab Status: Final result Specimen: Blood, Peripheral Draw Updated: 03/13/21911 HBc IgM Ab, S Negative Hepatitis A IgM Ab, Serum [[id number]] Collected: 03/12/21557 Lab Status: Final result Specimen: Blood, Peripheral Draw Updated: 03/13/21950 Hepatitis A IgM Ab, S Negative Comment: Result does not exclude the possibility of exposure to hepatitis A virus. Antibody level during early infection stage may be below the limit of detection of the assay. HCV Ab w/Reflex to HCV PCR, Serum [[id number]] Collected: 03/12/21557 Lab Status: Final result Specimen: Blood, Peripheral Draw Updated: 03/13/21924 HCV Ab, S Negative Comment: Osrauz-hc-xhhxun ratio is <1.00. Bacteria / Raudel Culture, Blood #1 [[id number]] Collected: 03/12/21556 Lab Status: Preliminary result Specimen: Blood, Peripheral Draw Updated: 03/15/21704 Bacteria/Raudel Culture, Blood No growth to date. ASSESSMENT / PLAN 1. Liver cirrhosis/ascites/encephalopathy ?? Lactulose 30 gm TID ?? 200 g x1 given 03/12 ?? Ammonia 110 (03/13), 127 (03/12) ?? Octreotide 25 mL/hr set to stop 03/16 ?? Albumin 25 gm q6h ?? Pantoprazole 40 mg IV q12h ?? Continues on clear liquid diet. Keep IV meds for now. 2. Intra-abdominal infection/SBP PPX ?? Day 4 Zosyn + doxy (stop date of 03/17/21) ?? Ceftriaxone set to start 03/18 for SBP px ?? Vanco load of 1 gm x1 given 03/12 ?? Rifaximin 550 mg BID starting 03/13 ?? Ceftriaxone starting 03/18 for SBP Px 3. Mechanical ventilation ?? Sedation: ?? Propofol stopped 03/14 ?? T (03/13) ?? Precedex: stopped 03/14 ?? Pressors: ?? Norepi drip stopped 03/14 ?? Vasopressin continues at 0.04 units/min 4. Tox screen ?? Unconfirmed positive for oxycodone and THC; negative for all other ?? Ethanol <10 Changes to medications anticipated at discharge: TBD Virginie Valerio, Pharm.D., R.Ph. DUMPER Lizet Navarro M.D. - 03/14/2021 12:10 PM CST SUBJECTIVE CHIEF COMPLAINT/REASON FOR VISIT Acute hepatic encephalopathy HISTORY OF PRESENT ILLNESS Catia Carias is a 30-year-old female who has been admitted with acute on chronic liver failure. Apparently she has history of alcohol abuse in the past. She presented altered mental sensorium and wasintubated and mechanically ventilated. Patient had elevated ammonia. She underwent thoracentesis and paracentesis. Patient had elevated neutrophil count in the pleural fluid but not in the ascitic fluid. She also appeared to have some coffee-ground aspirate from the NG tube. She has required some blood transfusion for anemia and also lactulose to help further hepatic encephalopathy. INTERVAL EVENTS: Patient remains on Vasopressin. Otherwise, is doing well with SBT. She is alert and follows commandsappropriately. Remains afebrile. CURRENT MEDICATIONS Scheduled Medications: albumin human, 25 g, intravenous, Q6H [place] [START ON 03/18/2021] cefTRIAXone, 2 g, intravenous, Daily doxycycline, 100 mg, intravenous, Q12H [place] folic acid, 1 mg, oral, Daily heparin (porcine), 5,000 Units, subcutaneous, Q8H [place] insulin aspart, 0-7 Units, subcutaneous, Q6H [place] ketamine, 100 mg, intravenous, Once lactulose, 30 g, gastric tube, TID multivitamin IVPB, , intravenous, Daily pantoprazole, 40 mg, intravenous, Q12H [place] phytonadione (vitamin K1), 10 mg, intravenous, Daily piperacillin-tazobactam, 3.375 g, intravenous, Q6H [place] rifAXIMin, 550 mg, oral, BID sodium chloride, 5-15 mL, intravenous, Q12H [place] thiamine, 100 mg, oral, Daily Continuous Infusions: dexmedeTOMIDine 4 mcg/mL in NaCl 0.9% 100 mL infusion (PRECEDEX), 0.2-1.5 mcg/kg/hr (Dosing Weight), Last Rate: Stopped (03/14/21 0935) norepinephrine 16 mcg/mL in D5W 250 mL infusion, 0-0.3 mcg/kg/min (Dosing Weight), Last Rate: Stopped (03/13/21 1255) octreotide 2 mcg/mL in NaCl 0.9% 250 mL infusion (SandoSTATIN), 25 mcg/hr, Last Rate: 25 mcg/hr (03/14/21 1000) propofol 10 mg/mL infusion (DIPRIVAN), 5-80 mcg/kg/min (Dosing Weight), Last Rate: Stopped () vasopressin 0.2 Units/mL in NaCl 0.9% 100 mL infusion (PITRESSIN), 0.04 Units/min, Last Rate: 0.04 Units/min (03/14/21 1000) PRN Medications: sodium chloride ??? sodium chloride OBJECTIVE VITAL SIGNS BP (!) 118/51 (BP Location: Right arm;Lower) Pulse 60 Temp 36.3 ??C (Temporal) Resp 12 Ht 157.5 cm Wt 58.5 kg SpO2 95% BMI 23.59 kg/m?? PHYSICAL EXAMINATION General: Patient was intubated and mechanically ventilated. She was encephalopathic, and needed somedexmedetomidine. Two words the evening she was following some simple commands. She is cachectic HEENT: Normocephalic, atraumatic. No scleral icterus. Oral mucosa moist. Neck: Supple. No lymphadenopathy. Cardiovascular: Normal S1/S2. No murmurs. Lungs: Clear to auscultation bilaterally. Abdomen: Soft, NT, ND, +BS. Ascites is present Extremities: No BLE edema. Neurological: she is cachectic Intake/Output Summary (Last 24 hours) at 03/14/2021 1210 Last data filed at 03/14/2021 1134 Gross per 24 hour Intake 3029.9 ml Output 1610 ml Net 1419.9 ml DIAGNOSTICS Labs: Recent Results (from the past 24 hour(s)) Hemoglobin Collection Time: 03/13/21 4:28 PM Result Value Hemoglobin 8.0 (L) Glucose, POCT Collection Time: 03/13/21 6:16 PM Result Value Glucose, POCT, B 112 Hemoglobin Collection Time: 03/13/21 6:29 PM Result Value Hemoglobin 8.0 (L) Glucose, POCT Collection Time: 03/14/21 12:06 AM Result Value Glucose, POCT, B 116 Hepatic Function Panel Collection Time: 03/14/21 5:40 AM Result Value Bilirubin, Total, P 6.0 (H) Bilirubin, Direct, P 2.5 (H) Aspartate Aminotransferase (AST), P 48 (H) Alanine Aminotransferase (ALT), P 10 Alkaline Phosphatase, P 64 Albumin, P 4.3 Protein, Total, P 5.7 (L) CBC without Differential Collection Time: 03/14/21 5:41 AM Result Value Hemoglobin 7.9 (L) Hematocrit 23.2 (L) Erythrocytes 2.40 (L) MCV 96.7 RBC Distrib Width 22.8 (H) Platelet Count 90 (L) Leukocytes 6.6 Basic Metabolic Panel Collection Time: 03/14/21 5:41 AM Result Value Potassium, P 3.2 (L) Sodium, P 135 Chloride, P 103 Bicarbonate, P 19 (L) Anion Gap, P 13 BUN (Blood Urea Nitrogen), P 11 Creatinine, P 0.60 eGFR-Black/ >90 eGFR Non-Black/ >90 Calcium, Total, P 8.9 Glucose, P 124 Blood Gas with Coox, Arterial Collection Time: 03/14/21 5:41 AM Result Value P O2 146 (H) P CO2 32 pH 7.43 Base Excess -2 HCO3 21 (L) Hemoglobin, B 8.0 (L) O2Hb 97.5 COHb 1.7 MetHb 0.1 CtO2 11.3 (L) Arterial Sample Site Art Line Magnesium Collection Time: 03/14/21 5:41 AM Result Value Magnesium, P 2.3 Phosphorus Inorganic Collection Time: 03/14/21 5:41 AM Result Value Phosphorus (Inorganic), P 2.8 Patient Status Collection Time: 03/14/21 5:41 AM Result Value FIO2 0.30 Calcium, Ionized Collection Time: 03/14/21 5:41 AM Result Value Calcium, Ionized, B 4.61 (L) pH Collection Time: 03/14/21 5:41 AM Result Value pH 7.48 (H) Glucose, POCT Collection Time: 03/14/21 6:28 AM Result Value Glucose, POCT, B 109 Prothrombin Time (PT) Collection Time: 03/14/21 9:22 AM Result Value Prothrombin Time, P 28.5 (H) INR 2.5 Blood Gas with Coox, Arterial Collection Time: 03/14/21 11:00 AM Result Value P O2 120 (H) P CO2 33 pH 7.42 Base Excess -3 (L) HCO3 21 (L) Hemoglobin, B 7.8 (L) O2Hb 96.7 COHb 1.4 MetHb 0.7 CtO2 10.8 (L) Arterial Sample Site Arterial Line Patient Status Collection Time: 03/14/21 11:00 AM Result Value FIO2 0.30 Micro: Microbiology Results (last 72 hours) Procedure Component Value - Date/Time Gram Stain [[id number]] Collected: 03/12/211545 Lab Status: Final result Specimen: Peritoneal Fluid Updated: 03/12/21 182 Gram Stain No organisms seen. White blood cells present. Stain performed on concentrated cytospin preparation. Bacterial Culture, Anaerobic + Susc [[id number]] Collected: 03/12/21 154 Lab Status: In process Specimen: Peritoneal Fluid Updated: 03/12/21 154 Bacterial Culture, Aerobic + Susc [[id number]] Collected: 03/12/21 1546 Lab Status: Preliminary result Specimen: Peritoneal Fluid Updated: 03/13/21 1129 Bacterial Culture, Aerobic + Susc No growth to date Bacterial Culture, Aerobic + Susc [[id number]] Collected: 03/12/21 1234 Lab Status: Preliminary result Specimen: Pleural Fluid, Right Updated: 03/13/21 1133 Bacterial Culture, Aerobic + Susc No growth to date Bacterial Culture, Anaerobic + Susc [[id number]] Collected: 03/12/21 1234 Lab Status: In process Specimen: Pleural Fluid, Right Updated: 03/12/21 1308 Gram Stain [[id number]] Collected: 03/12/21 123 Lab Status: Final result Specimen: Pleural Fluid, Right Updated: 03/12/21 1646 Gram Stain No organisms seen. White blood cells present. Stain performed on concentrated cytospin preparation. Gram Stain [[id number]] Collected: 03/12/21 123 Lab Status: No result Specimen: Pleural Fluid, Right SARS Coronavirus-2 RNA, V Symptomatic [[id number]] Collected: 03/12/21 1100 Lab Status: Final result Specimen: Varies from Nasopharynx Updated: 03/12/21 193 SARS-CoV-2 Specimen Source Swab, Nasopharynx SARS CoV-2 RNA, TMA Undetected Comment: SARS-CoV-2 RNA absent. This result does not rule out COVID-19 in the patient, as the sensitivity of the test depends on the timing of the specimen collection and the quality of the specimen. Result should be correlated with patient's history and clinical presentation. ----ADDITIONAL INFORMATION---- This molecular amplification test was performed using the Aptima SARS-CoV-2 assay ([employer] on the [employer] System under emergency use authorization (EUA) by the U.S. Food and Drug Administration. Fact sheets for this EUA assay can be found at the following links: For Healthcare Providers: https://www.fda.gov/media/280649/download For Patients: https://www.fda.gov/media/386293/download Influenza A/B and RSV, PCR, Varies [[id number]] Collected: 03/12/21 1100 Lab Status: Final result Specimen: Varies from Nasopharynx Updated: 03/13/21 1155 Influenza A/B and RSV, Source Swab, Nasopharynx Influenza A, PCR Undetected Comment: Influenza A RNA absent. Influenza B, PCR Undetected Comment: Influenza B RNA absent. Respiratory Syncytial Virus, PCR Undetected Comment: RSV RNA absent. ----ADDITIONAL INFORMATION---- This test has been modified from the sugar refiner's instructions. Its performance characteristics were determined by [facility] in a manner consistent with CLIA requirements. This test has not been cleared or approved by the U.S. Food and Drug Administration. Bacteria / Raudel Culture, Blood #2 [[id number]] Collected: 03/12/21709 Lab Status: Preliminary result Specimen: Blood, Peripheral Draw Updated: 03/13/21804 Bacteria/Raudel Culture, Blood No growth to date. MRSA PCR, Nasal [[id number]] Collected: 03/12/21622 Lab Status: Final result Specimen: Swab from Nares Updated: 03/12/21 1050 MRSA Screen, Nasal by PCR Negative Hepatitis B Surface Antigen [[id number]] Collected: 03/12/21557 Lab Status: Final result Specimen: Blood, Peripheral Draw Updated: 03/12/21743 HBs Antigen, S Nonreactive Comment: Biotin has been identified by the sugar refiner as a potential interfering substance. Higher concentrations of biotin may be found in multivitamins, hair/nail supplements, and workout supplements. If the result does not match clinical observations, repeat testing after patient refrains from the use of supplements for at least 12 hours. Hepatitis B Core IgM Ab [[id number]] Collected: 03/12/21557 Lab Status: Final result Specimen: Blood, Peripheral Draw Updated: 03/13/21911 HBc IgM Ab, S Negative Hepatitis A IgM Ab, Serum [[id number]] Collected: 03/12/21557 Lab Status: Final result Specimen: Blood, Peripheral Draw Updated: 03/13/21950 Hepatitis A IgM Ab, S Negative Comment: Result does not exclude the possibility of exposure to hepatitis A virus. Antibody level during early infection stage may be below the limit of detection of the assay. HCV Ab w/Reflex to HCV PCR, Serum [[id number]] Collected: 03/12/21557 Lab Status: Final result Specimen: Blood, Peripheral Draw Updated: 03/13/21924 HCV Ab, S Negative Comment: Tmxwmr-ib-mcjnmm ratio is <1.00. Bacteria / Raudel Culture, Blood #1 [[id number]] Collected: 03/12/21 0557 Lab Status: Preliminary result Specimen: Blood, Peripheral Draw Updated: 03/13/21 0705 Bacteria/Raudel Culture, Blood No growth to date. Radiology: DX Chest Portable 1 View Final Result Persistent areas of bibasilar atelectasis or infiltrate more prominent on the right. DX Chest Portable 1 View Final Result Persistent right basilar infiltrate or atelectasis. CT Chest with IV Contrast Final Result 1. Partial atelectasis of the bilateral lower lobes. Difficult to exclude superimposed infiltrates in the atelectatic lungs. Two subtle small areas of groundglass attenuation in the left upper lobe and right middle lobe, favored to represent minimal infectious/inflammatory change. 2. Moderate volume ascites. Small foci of intra-abdominal gas in the right anterior abdomen, in the setting of reported recent paracentesis. Small right pleural effusion. 3. Proximal large bowel distention with mixed attenuation stool/fluid suggesting possible functional obstruction. No evidence of mechanical large bowel obstruction. 4. Mild large bowel wall thickening, that may be related to fluid third spacing or possible colitis. No pneumatosis. 5. Small appearing pancreas with pancreatic head calcifications, suggesting sequelae of chronic pancreatitis. Splenomegaly. Patent portal and splenic veins. 6. Malpositioned appearing intrauterine contraceptive device. 7. Subacute appearing fracture of right anterior fifth rib. CT Abdomen Pelvis with IV Contrast Final Result 1. Partial atelectasis of the bilateral lower lobes. Difficult to exclude superimposed infiltrates in the atelectatic lungs. Two subtle small areas of groundglass attenuation in the left upper lobe and right middle lobe, favored to represent minimal infectious/inflammatory change. 2. Moderate volume ascites. Small foci of intra-abdominal gas in the right anterior abdomen, in the setting of reported recent paracentesis. Small right pleural effusion. 3. Proximal large bowel distention with mixed attenuation stool/fluid suggesting possible functional obstruction. No evidence of mechanical large bowel obstruction. 4. Mild large bowel wall thickening, that may be related to fluid third spacing or possible colitis. No pneumatosis. 5. Small appearing pancreas with pancreatic head calcifications, suggesting sequelae of chronic pancreatitis. Splenomegaly. Patent portal and splenic veins. 6. Malpositioned appearing intrauterine contraceptive device. 7. Subacute appearing fracture of right anterior fifth rib. CT Head without IV Contrast Final Result No acute CT abnormalities are demonstrated. DX Chest Portable 1 View Final Result 1. New endotracheal tube with tip positioned appropriately at the level of the clavicular heads. 2. New right IJ central venous catheter with tip positioned in the mid SVC. 3. New nasogastric tube with tip positioned in the mid stomach. 4. No pneumothorax status post right thoracentesis. 5. Marked interval decrease in right pleural effusion with associated atelectasis. 6. No acute airspace disease. DX Chest Portable 1 View Final Result Large right pleural effusion and right-sided consolidation. Centrally obstructing process within bronchus is not excluded. US Pelvis Transvaginal and Transabdominal (Results Pending) DX Chest Portable 1 View (Results Pending) DX Chest Portable 1 View (Results Pending) DX Chest Portable 1 View (Results Pending) DX Chest Portable 1 View (Results Pending) DX Chest Portable 1 View (Results Pending) ASSESSMENT / PLAN 1. Acute encephalopathy secondary to hepatic etiology. Likely this has been precipitated by some underlying infection which could be spontaneous bacterial peritonitis versus pneumonia. 2. Acute respiratory insufficiency secondary to altered mental status requiring intubation and mechanical ventilation 3. 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 Anemia most likely related to chronic blood loss. Medical decision making; 1. Neuro: Encephalopathy is much better today. Continue with Rifaxamin and lactulose with a goal of 400-800 cc of stool every 24 hours. 2. Respiratory: Patient underwent SBT and did well. She was extubated. Bibasilar pneumonia- on abx. 3. GI: Alcoholic cirrhosis - undergoing workup to rule out other causes. Continue tx for hepatic encephalopathy and SBP. -She will need indefinite prophylaxis for SBP. - No need for EGD as per GI. Will d/c Octreotide after a total of 72 hours. - Will hold off on paracentesis today - MELD score is 25 4. ID Continue broad-spectrum antibiotic therapy for pneumonia/possible spontaneous bacterial peritonitis 5. Renal Patient has marginal urine output. Continue scheduled Albumin. Will add low dose lasix Total critical care time 35 min Lizet Navarro M.D. DUMPER Kerry Naranjo APRN, C.N.P., M.S.N. - 03/14/2021 10:39 AM CST SUBJECTIVE Catia Carias Remains intubated, on pressors in the ICU. Paracentesis on 03/12/2021: G stain negative, no SBP, bacterial cultures without growth to date. Protein resulted at 1.0. Hemoglobin after yesterday's unit of PRBC's 7.9, up from 7.1 She continues to have NG to suction, did small amount coffee-ground return, query trauma from NG insertion vs varices. She has a rectal tube in place has received lactulose via NG tube, minimal amount of return 100 ml overnocwith good return of brown stool. OBJECTIVE Admission Weight: 54.2 kg Current Weight: 58.5 kg Vital Signs Weight: 58.5 kg, BMI (Calculated): 23.6 kg/m??, Heart Rate: 60, Pulse Rate: 60, Resp Rate: 12, Temperature: 36.3 ??C, SpO2: 95 % PHYSICAL EXAM BP (!) 118/51 (BP Location: Right arm;Lower) Pulse 60 Temp 36.3 ??C (Temporal) Resp 12 Ht 157.5 cm Wt 58.5 kg SpO2 95% BMI 23.59 kg/m?? Lungs: On ventilator Heart: Regular rate Neurologic: Mental status: intubated and sedated, not able to assess Abdomen: distended but soft, +bowel sounds DIAGNOSTICS I have reviewed labs, Result Date: 03/13/2021 Lab results last 24 hours: Recent Results (from the past 24 hour(s)) Glucose, POCT Collection Time: 03/13/21 11:46 AM Result Value Glucose, POCT, B 130 Hemoglobin Collection Time: 03/13/21 4:28 PM Result Value Hemoglobin 8.0 (L) Glucose, POCT Collection Time: 03/13/21 6:16 PM Result Value Glucose, POCT, B 112 Hemoglobin Collection Time: 03/13/21 6:29 PM Result Value Hemoglobin 8.0 (L) Glucose, POCT Collection Time: 03/14/21 12:06 AM Result Value Glucose, POCT, B 116 Hepatic Function Panel Collection Time: 03/14/21 5:40 AM Result Value Bilirubin, Total, P 6.0 (H) Bilirubin, Direct, P 2.5 (H) Aspartate Aminotransferase (AST), P 48 (H) Alanine Aminotransferase (ALT), P 10 Alkaline Phosphatase, P 64 Albumin, P 4.3 Protein, Total, P 5.7 (L) CBC without Differential Collection Time: 03/14/21 5:41 AM Result Value Hemoglobin 7.9 (L) Hematocrit 23.2 (L) Erythrocytes 2.40 (L) MCV 96.7 RBC Distrib Width 22.8 (H) Platelet Count 90 (L) Leukocytes 6.6 Basic Metabolic Panel Collection Time: 03/14/21 5:41 AM Result Value Potassium, P 3.2 (L) Sodium, P 135 Chloride, P 103 Bicarbonate, P 19 (L) Anion Gap, P 13 BUN (Blood Urea Nitrogen), P 11 Creatinine, P 0.60 eGFR-Black/ >90 eGFR Non-Black/ >90 Calcium, Total, P 8.9 Glucose, P 124 Blood Gas with Coox, Arterial Collection Time: 03/14/21 5:41 AM Result Value P O2 146 (H) P CO2 32 pH 7.43 Base Excess -2 HCO3 21 (L) Hemoglobin, B 8.0 (L) O2Hb 97.5 COHb 1.7 MetHb 0.1 CtO2 11.3 (L) Arterial Sample Site Art Line Magnesium Collection Time: 03/14/21 5:41 AM Result Value Magnesium, P 2.3 Phosphorus Inorganic Collection Time: 03/14/21 5:41 AM Result Value Phosphorus (Inorganic), P 2.8 Patient Status Collection Time: 03/14/21 5:41 AM Result Value FIO2 0.30 Calcium, Ionized Collection Time: 03/14/21 5:41 AM Result Value Calcium, Ionized, B 4.61 (L) pH Collection Time: 03/14/21 5:41 AM Result Value pH 7.48 (H) Glucose, POCT Collection Time: 03/14/21 6:28 AM Result Value Glucose, POCT, B 109 Prothrombin Time (PT) Collection Time: 03/14/21 9:22 AM Result Value Prothrombin Time, P 28.5 (H) INR 2.5 ASSESSMENT / PLAN 1. Decompensated Cirrhosis - etiology likely alcohol related vs fatty liver vs pending further workup 2. Ascites- 3. Hepatomegaly, Splenomegaly 4. Jaundice 5. Coagulopathy 6. Anema, macrocytic 7. Thrombocytopenia 8. Elevated liver enzymes, direct hyperbilirubinemia 9. Altered Mental Status - elevated ammonia, hepatic encepholopathy 10. Coffee-ground NG tube output 11. Leukocytosis, Fever 12. Muscle wasting, cachexia 13. At risk for HCC 14. History of multiple episodes of pancreatitis, chronic pancreatitis MELD-Na score: 24 at 03/14/2021 9:22 AM MELD score: 23 at 03/14/2021 9:22 AM Calculated from: Serum Creatinine: 0.6 mg/dL (Using min of 1 mg/dL) at 03/14/2021 5:41 AM Serum Sodium: 135 mmol/L at 03/14/2021 5:41 AM Total Bilirubin: 6 mg/dL at 03/14/2021 5:40 AM INR(ratio): 2.5 at 03/14/2021 9:22 AM Age: 30 years PREVIOUS: MELD-Na score: 25 at 03/12/2021 5:57 AM MELD score: 22 at 03/12/2021 5:57 AM Recommendations: - For PT INR of 28.5/2.5 have ordered vitamin K 10 mg IV infusion for 3 days; today 03/14/2021 is day 1 of 3 - Continue octreotide drip and IV PPI BID - No plan for EGD at this time, pending further workup may consider. Continue to monitor NG tube output and hemoglobin. - Concern for varices in this patient with new diagnosis of cirrhosis. Transfuse if indicated. - Monitor and replete electrolytes per primary team - Continue lactulose TID. Titrate to 3-4 bowel movements per day. - Additional labs for evaluation of SAAG, albumin 0.7 and total protein 1.0 - for future paracentesis would recommend Replace 25% albumin at 8g/L fluid removed. Likely need indefinite SBP prophylaxis. Additional labs sent to evaluate for other etiology of chronic liver disease - Ethyl glucuronide was negative - ceruloplasmin slightly low at 16.5 - autoimmune hepatitis panel negative - alpha 1 antitrypsin negative - Viral hepatitis A/B/C al negative - Today's hepatic panel pending; Please call with questions. Thank you for allowing us to be a part of this patient's care. I personally spent over half of a total 35 minutes face to face with the patient in counseling and discussion and/or coordination of care as described above. Kerry Naranjo APRN, C.N.P., M.S.N. Gastroenterology and Hepatology [facility] DUMPER Associated attestation - Leslie Hawk M.D. - 03/14/2021 1:07 PM PAN DUMPER This is a supervisory note for gastroenterology consult performed by Ms. Naranjo. I have reviewed the available records, interviewed and examined the patient. I agree with the history, physical examination, and plan as outlined in her note. Patient remains intubated on pressors. She is more awake today and able to respond to basic questions. No further cofee ground material through NG tube. Last transfusion 24 hours ago, hemoglobin overall stable Labs reviewed. INR increased to 2.5 , Negative autoimmune panel, mild low ceruloplasmin. Recommendations 1.Added 10 mg of vitamin K janny 3 days 2.Continue lactulose TID 3.We will add rifaximin 4. Octreotide drip 72 hours will be completed tomorrow, can discontinue after 5.PPI BID 6.In regards to low ceruloplasmin, I have discussed her case with rug layer, since patient is anuric currently, we will defer 24 hour copper collection 7.Outpatient hepatology follow up needs to be addressed once patient is more awake. If she desires to follow here , we will set up follow up, EGD and 24 hour copper in urine. We will continue following It was a pleasure seeing Ms. Carias today. Please feel free to contact our team if any further questions Daron Cochran, Michelle., R.Ph. - 03/14/2021 9:39 AM CST Pharmacist Progress Note Reason for admission: AMS and hypoxia PMH: recently diagnosed liver cirrhosis (unknown etiology, possibly alcohol) - elevated LFTs + ascites (4 L removed from paracentesis ~3 weeks ago), recurrent pancreatitis, ADHD, marijuana use OBJECTIVE Home medications: med rec not completed at this time ?? Held: n/a ?? Changed: n/a Patient own medications: n/a Prophylaxis: DVT: heparin 5000 units subcut q8h SUP: pantoprazole 40mg IV BID Microbiology Results (last 10 days) Procedure Component Value - Date/Time Gram Stain [[id number]] Collected: 03/12/21 1546 Lab Status: Final result Specimen: Peritoneal Fluid Updated: 03/12/21 1822 Gram Stain No organisms seen. White blood cells present. Stain performed on concentrated cytospin preparation. Bacterial Culture, Anaerobic + Susc [[id number]] Collected: 03/12/21 1546 Lab Status: Preliminary result Specimen: Peritoneal Fluid Updated: 03/14/21 0523 Bacterial Culture, Anaerobic No growth to date. Bacterial Culture, Aerobic + Susc [[id number]] Collected: 03/12/21 1546 Lab Status: Preliminary result Specimen: Peritoneal Fluid Updated: 03/13/21 1129 Bacterial Culture, Aerobic + Susc No growth to date Bacterial Culture, Aerobic + Susc [[id number]] Collected: 03/12/21 1234 Lab Status: Preliminary result Specimen: Pleural Fluid, Right Updated: 03/13/21 1133 Bacterial Culture, Aerobic + Susc No growth to date Bacterial Culture, Anaerobic + Susc [[id number]] Collected: 03/12/21 1234 Lab Status: Preliminary result Specimen: Pleural Fluid, Right Updated: 03/14/21 0523 Bacterial Culture, Anaerobic No growth to date. Gram Stain [[id number]] Collected: 03/12/21 1234 Lab Status: Final result Specimen: Pleural Fluid, Right Updated: 03/12/21 1646 Gram Stain No organisms seen. White blood cells present. Stain performed on concentrated cytospin preparation. Gram Stain [[id number]] Collected: 03/12/21 1234 Lab Status: No result Specimen: Pleural Fluid, Right SARS Coronavirus-2 RNA, V Symptomatic [[id number]] Collected: 03/12/21 1100 Lab Status: Final result Specimen: Varies from Nasopharynx Updated: 03/12/21 193 SARS-CoV-2 Specimen Source Swab, Nasopharynx SARS CoV-2 RNA, TMA Undetected Comment: SARS-CoV-2 RNA absent. This result does not rule out COVID-19 in the patient, as the sensitivity of the test depends on the timing of the specimen collection and the quality of the specimen. Result should be correlated with patient's history and clinical presentation. ----ADDITIONAL INFORMATION---- This molecular amplification test was performed using the Aptima SARS-CoV-2 assay ([employer] on the [employer] System under emergency use authorization (EUA) by the U.S. Food and Drug Administration. Fact sheets for this EUA assay can be found at the following links: For Healthcare Providers: https://www.fda.gov/media/938867/download For Patients: https://www.fda.gov/media/761805/download Influenza A/B and RSV, PCR, Varies [[id number]] Collected: 03/12/21 1100 Lab Status: Final result Specimen: Varies from Nasopharynx Updated: 03/13/21 1155 Influenza A/B and RSV, Source Swab, Nasopharynx Influenza A, PCR Undetected Comment: Influenza A RNA absent. Influenza B, PCR Undetected Comment: Influenza B RNA absent. Respiratory Syncytial Virus, PCR Undetected Comment: RSV RNA absent. ----ADDITIONAL INFORMATION---- This test has been modified from the sugar refiner's instructions. Its performance characteristics were determined by [facility] in a manner consistent with CLIA requirements. This test has not been cleared or approved by the U.S. Food and Drug Administration. Bacteria / Raudel Culture, Blood #2 [[id number]] Collected: 03/12/21 0710 Lab Status: Preliminary result Specimen: Blood, Peripheral Draw Updated: 03/14/21 0805 Bacteria/Raudel Culture, Blood No growth to date. MRSA PCR, Nasal [[id number]] Collected: 03/12/21 0623 Lab Status: Final result Specimen: Swab from Nares Updated: 03/12/21 1050 MRSA Screen, Nasal by PCR Negative Hepatitis B Surface Antigen [[id number]] Collected: 03/12/2158 Lab Status: Final result Specimen: Blood, Peripheral Draw Updated: 03/12/21 0744 HBs Antigen, S Nonreactive Comment: Biotin has been identified by the sugar refiner as a potential interfering substance. Higher concentrations of biotin may be found in multivitamins, hair/nail supplements, and workout supplements. If the result does not match clinical observations, repeat testing after patient refrains from the use of supplements for at least 12 hours. Hepatitis B Core IgM Ab [[id number]] Collected: 03/12/2158 Lab Status: Final result Specimen: Blood, Peripheral Draw Updated: 03/13/21 0912 HBc IgM Ab, S Negative Hepatitis A IgM Ab, Serum [[id number]] Collected: 03/12/21557 Lab Status: Final result Specimen: Blood, Peripheral Draw Updated: 03/13/21 0951 Hepatitis A IgM Ab, S Negative Comment: Result does not exclude the possibility of exposure to hepatitis A virus. Antibody level during early infection stage may be below the limit of detection of the assay. HCV Ab w/Reflex to HCV PCR, Serum [[id number]] Collected: 03/12/21557 Lab Status: Final result Specimen: Blood, Peripheral Draw Updated: 03/13/21924 HCV Ab, S Negative Comment: Tqlvgq-kc-jymyie ratio is <1.00. Bacteria / Raudel Culture, Blood #1 [[id number]] Collected: 03/12/2157 Lab Status: Preliminary result Specimen: Blood, Peripheral Draw Updated: 03/14/21 07 Bacteria/Raudel Culture, Blood No growth to date. ASSESSMENT / PLAN 1. Liver cirrhosis/ascites/encephalopathy ?? Lactulose 30 gm TID ?? 200 g x1 given 03/12 ?? Ammonia 110 (03/13), 127 (03/12) ?? Octreotide 25 mL/hr ?? Albumin 25 gm q6h ?? Pantoprazole 40 mg IV q12h ?? 2. Intra-abdominal infection/SBP PPX ?? Day 3 Zosyn + doxy (stop date of 03/17/21) ?? Ceftriaxone set to start 03/18 for SBP px ?? Vanco load of 1 gm x1 given 03/12 ?? Rifaximin 550 mg BID starting 03/13 ?? Ceftriaxone starting 03/18 3. Mechanical ventilation ?? Sedation: ?? Propofol currently off ?? T (03/13) ?? Precedex: 0.2 mcg/kg/hr ?? Pressors: ?? Norepi drip stopped 03/14 ?? Vasopressin increased to 0.04 units/min 4. Tox screen ?? Unconfirmed positive for oxycodone and THC; negative for all other ?? Ethanol <10 Changes to medications anticipated at discharge: REFUGIO Valerio, Pharm.D., R.Ph. DUMPER Silvestre Stevens, R.R.T. - 03/14/2021 9:31 AM CST 0820 SBT was attempted per Protocol, with initial Spontaneous settings of 10/12 with FiO2 of 30% Pt failed to trigger adequate amount of breaths, and Pressure Control Mode was triggered. Pt placed backon ASV settings as previous. After Precedex has worn off, a second SBT will be attempted. 0920 Pt placed on Spontaneous Mode settings per Navarro 1205 Pt extubated to 4 lpm per nasal canula DUMPER Adry Reyes - 03/14/2021 4:20 AM CST 03/14/21 0315 [facility] Information Ventilator System Check Settings and alarms verified;Circuit integrity checked;Humidifier on and functioning $Invasive Ventilator Subsequent Day Yes Ventilator Parameters Ventilator Mode ASV FiO2 (%) 30 % Inspiratory Time Set (sec) 1.61 Seconds PEEP (cmH2O) 12 cm H20 Pressure Control Setting 7 cm H2O ASV % MinVol Set 100 % Percentage of Spontaneous Respirations 0 % Sensitivity Flow Setting 2 L/min. Total Respiratory Rate 19 Breaths/min Tidal Volume Inspired 274 mL Tidal Volume 273 mL I:E Ratio 1:1 Minute Volume 5.2 L/min Spontaneous Minute Volume 0 L/min Peak Airway Pressure 20 cm H2O Mean Airway Pressure 16 cm H2O Plateau (Pause) Airway Pressure 20 cm H2O Compliance (mL/cm H2O) 35.4 mL/cm H2O Respiratory Resistance 8 cm H2O/L/Sec Humidification Heated humidifier Heater Temperature 36.9 ??C Mechanical Power (Plateau) 8.2 Joules/minute Patient continues on above settings. BBS diminished but clear t/o. Sx'd for small thin pacheco/white secretions. Will continue to follow. Electronically signed by: Adry Reyes 03/14/21 4:21 AM PAN DUMPER DUMPER Tariq Marcano M.B.B.S. - 03/13/2021 7:04 PM CST SUBJECTIVE CHIEF COMPLAINT/REASON FOR VISIT Acute hepatic encephalopathy HISTORY OF PRESENT ILLNESS Catia Carias is a 30-year-old female who has been admitted with acute on chronic liver failure. Apparently she has history of alcohol abuse in the past. She presented altered mental sensorium and wasintubated and mechanically ventilated. Patient had elevated ammonia. She underwent thoracentesis and paracentesis. Patient had elevated neutrophil count in the pleural fluid but not in the ascitic fluid. She also appeared to have some coffee-ground aspirate from the NG tube. She has required some blood transfusion for anemia and also lactulose to help further hepatic encephalopathy. INTERVAL EVENTS: Patient was on Levophed and vasopressin in the morning. She was given some albumin and a unit of blood which helped us to wean off the Levophed. She had some coffee-ground aspirate and was seen by gastroenterology who recommended conservative management at this point in time. We continue to give her oc treotide infusion. Her urine output was very marginal and hence we have increased albumin infusion for her. CURRENT MEDICATIONS Scheduled Medications: albumin human, 25 g, intravenous, Q6H [place] albumin human, 25 g, intravenous, Once [START ON 03/18/2021] cefTRIAXone, 2 g, intravenous, Daily doxycycline, 100 mg, intravenous, Q12H [place] folic acid, 1 mg, oral, Daily heparin (porcine), 5,000 Units, subcutaneous, Q8H [place] insulin aspart, 0-7 Units, subcutaneous, Q6H [place] ketamine, 100 mg, intravenous, Once lactulose, 30 g, gastric tube, TID multivitamin IVPB, , intravenous, Daily pantoprazole, 40 mg, intravenous, Q12H [place] piperacillin-tazobactam, 3.375 g, intravenous, Q6H [place] rifAXIMin, 550 mg, oral, BID sodium chloride, 5-15 mL, intravenous, Q12H [place] thiamine, 100 mg, oral, Daily Continuous Infusions: dexmedeTOMIDine 4 mcg/mL in NaCl 0.9% 100 mL infusion (PRECEDEX), 0.2-1.5 mcg/kg/hr (Dosing Weight), Last Rate: 0.797 mcg/kg/hr (03/13/21 1800) norepinephrine 16 mcg/mL in D5W 250 mL infusion, 0-0.3 mcg/kg/min (Dosing Weight), Last Rate: Stopped (03/13/21 1255) octreotide 2 mcg/mL in NaCl 0.9% 250 mL infusion (SandoSTATIN), 25 mcg/hr, Last Rate: 25 mcg/hr (03/13/21 1800) propofol 10 mg/mL infusion (DIPRIVAN), 5-80 mcg/kg/min (Dosing Weight), Last Rate: Stopped () vasopressin 0.2 Units/mL in NaCl 0.9% 100 mL infusion (PITRESSIN), 0.04 Units/min, Last Rate: 0.04 Units/min (03/13/21 1800) PRN Medications: NaCl 0.9% ??? sodium chloride ??? sodium chloride OBJECTIVE VITAL SIGNS BP (!) 118/51 (BP Location: Right arm;Lower) Pulse 62 Temp 36.2 ??C (Temporal) Resp 17 Ht 157.5 cm Wt 58.5 kg SpO2 98% BMI 23.59 kg/m?? PHYSICAL EXAMINATION General: Patient was intubated and mechanically ventilated. She was encephalopathic, and needed somedexmedetomidine. Two words the evening she was following some simple commands. She is cachectic HEENT: Normocephalic, atraumatic. No scleral icterus. Oral mucosa moist. Neck: Supple. No lymphadenopathy. Cardiovascular: Normal S1/S2. No murmurs. Lungs: Clear to auscultation bilaterally. Abdomen: Soft, NT, ND, +BS. Ascites is present Extremities: No BLE edema. Neurological: she is cachectic Intake/Output Summary (Last 24 hours) at 03/13/2021 1904 Last data filed at 03/13/2021 1817 Gross per 24 hour Intake 3579.14 ml Output 1880 ml Net 1699.14 ml DIAGNOSTICS Labs: Recent Results (from the past 24 hour(s)) Glucose, POCT Collection Time: 03/12/21 11:44 PM Result Value Glucose, POCT, B 120 Hemoglobin Collection Time: 03/13/21 12:11 AM Result Value Hemoglobin 7.4 (L) Basic Metabolic Panel Collection Time: 03/13/21 1:20 AM Result Value Potassium, P 2.9 (L) Sodium, P 134 (L) Chloride, P 99 Bicarbonate, P 20 (L) Anion Gap, P 15 BUN (Blood Urea Nitrogen), P 8 Creatinine, P 0.56 (L) eGFR-Black/ >90 eGFR Non-Black/ >90 Calcium, Total, P 8.9 Glucose, P 120 Ammonia Collection Time: 03/13/21 5:37 AM Result Value Ammonia, P 110 (H) CBC with Differential, Blood Collection Time: 03/13/21 5:37 AM Result Value Hemoglobin 7.1 (L) Hematocrit 21.0 (L) Erythrocytes 2.11 (L) MCV 99.5 (H) RBC Distrib Width 20.1 (H) Platelet Count 101 (L) Leukocytes 8.4 Neutrophils 6.72 (H) Lymphocytes 0.85 (L) Monocytes 0.86 (H) Eosinophils <0.03 Basophils <0.03 Comprehensive Metabolic Panel Collection Time: 03/13/21 5:37 AM Result Value Potassium, P 3.9 Sodium, P 135 Chloride, P 103 Bicarbonate, P 20 (L) Anion Gap, P 12 BUN (Blood Urea Nitrogen), P 8 Creatinine, P 0.56 (L) eGFR-Black/ >90 eGFR Non-Black/ >90 Calcium, Total, P 9.0 Glucose, P 115 Protein, Total, P 5.7 (L) Albumin, P 3.9 Aspartate Aminotransferase (AST), P 64 (H) Alkaline Phosphatase, P 90 Alanine Aminotransferase (ALT), P 14 Bilirubin, Total, P 6.1 (H) Triglycerides Collection Time: 03/13/21 5:37 AM Result Value Triglycerides, Fasting, P 127 Magnesium Collection Time: 03/13/21 5:37 AM Result Value Magnesium, P 2.6 (H) Phosphorus Inorganic Collection Time: 03/13/21 5:37 AM Result Value Phosphorus (Inorganic), P 3.1 Blood Gas with Coox, Arterial Collection Time: 03/13/21 5:37 AM Result Value P O2 141 (H) P CO2 30 (L) pH 7.46 (H) Base Excess -2 HCO3 21 (L) Hemoglobin, B 7.2 (L) O2Hb 97.9 COHb 1.5 MetHb 0.0 CtO2 10.3 (L) Arterial Sample Site Art Line Patient Status Collection Time: 03/13/21 5:37 AM Result Value FIO2 0.30 Iron and Total Iron-Binding Capacity Collection Time: 03/13/21 8:28 AM Result Value Iron 77 Total Iron Binding Capacity 68 (L) Percent Saturation >90 (H) Vitamin B12 Assay Collection Time: 03/13/21 8:28 AM Result Value Vitamin B12 Assay, S 690 Folate Collection Time: 03/13/21 8:28 AM Result Value Folate, S 2.8 (L) Ferritin Collection Time: 03/13/21 8:28 AM Result Value Ferritin, S 801 (H) Glucose, POCT Collection Time: 03/13/21 11:46 AM Result Value Glucose, POCT, B 130 Hemoglobin Collection Time: 03/13/21 4:28 PM Result Value Hemoglobin 8.0 (L) Hemoglobin Collection Time: 03/13/21 6:29 PM Result Value Hemoglobin 8.0 (L) Micro: Microbiology Results (last 72 hours) Procedure Component Value - Date/Time Gram Stain [[id number]] Collected: 03/12/21 1546 Lab Status: Final result Specimen: Peritoneal Fluid Updated: 03/12/21 1822 Gram Stain No organisms seen. White blood cells present. Stain performed on concentrated cytospin preparation. Bacterial Culture, Anaerobic + Susc [[id number]] Collected: 03/12/21 1546 Lab Status: In process Specimen: Peritoneal Fluid Updated: 03/12/21 1548 Bacterial Culture, Aerobic + Susc [[id number]] Collected: 03/12/21 1546 Lab Status: Preliminary result Specimen: Peritoneal Fluid Updated: 03/13/21 1129 Bacterial Culture, Aerobic + Susc No growth to date Bacterial Culture, Aerobic + Susc [[id number]] Collected: 03/12/21 1234 Lab Status: Preliminary result Specimen: Pleural Fluid, Right Updated: 03/13/21 1133 Bacterial Culture, Aerobic + Susc No growth to date Bacterial Culture, Anaerobic + Susc [[id number]] Collected: 03/12/21 1234 Lab Status: In process Specimen: Pleural Fluid, Right Updated: 03/12/21 1308 Gram Stain [[id number]] Collected: 03/12/21 1234 Lab Status: Final result Specimen: Pleural Fluid, Right Updated: 03/12/21 1646 Gram Stain No organisms seen. White blood cells present. Stain performed on concentrated cytospin preparation. Gram Stain [[id number]] Collected: 03/12/21 1234 Lab Status: No result Specimen: Pleural Fluid, Right SARS Coronavirus-2 RNA, V Symptomatic [[id number]] Collected: 03/12/21 1100 Lab Status: Final result Specimen: Varies from Nasopharynx Updated: 03/12/21 1932 SARS-CoV-2 Specimen Source Swab, Nasopharynx SARS CoV-2 RNA, TMA Undetected Comment: SARS-CoV-2 RNA absent. This result does not rule out COVID-19 in the patient, as the sensitivity of the test depends on the timing of the specimen collection and the quality of the specimen. Result should be correlated with patient's history and clinical presentation. ----ADDITIONAL INFORMATION---- This molecular amplification test was performed using the Aptima SARS-CoV-2 assay ([employer] on the [employer] System under emergency use authorization (EUA) by the U.S. Food and Drug Administration. Fact sheets for this EUA assay can be found at the following links: For Healthcare Providers: https://www.fda.gov/media/243827/download For Patients: https://www.fda.gov/media/977053/download Influenza A/B and RSV, PCR, Varies [[id number]] Collected: 03/12/21 1100 Lab Status: Final result Specimen: Varies from Nasopharynx Updated: 03/13/21 1155 Influenza A/B and RSV, Source Swab, Nasopharynx Influenza A, PCR Undetected Comment: Influenza A RNA absent. Influenza B, PCR Undetected Comment: Influenza B RNA absent. Respiratory Syncytial Virus, PCR Undetected Comment: RSV RNA absent. ----ADDITIONAL INFORMATION---- This test has been modified from the sugar refiner's instructions. Its performance characteristics were determined by [facility] in a manner consistent with CLIA requirements. This test has not been cleared or approved by the U.S. Food and Drug Administration. Bacteria / Raudel Culture, Blood #2 [[id number]] Collected: 03/12/21 0710 Lab Status: Preliminary result Specimen: Blood, Peripheral Draw Updated: 03/13/21 0805 Bacteria/Raudel Culture, Blood No growth to date. MRSA PCR, Nasal [[id number]] Collected: 03/12/21 0623 Lab Status: Final result Specimen: Swab from Nares Updated: 03/12/21 1050 MRSA Screen, Nasal by PCR Negative Hepatitis B Surface Antigen [[id number]] Collected: 03/12/21 0558 Lab Status: Final result Specimen: Blood, Peripheral Draw Updated: 03/12/21743 HBs Antigen, S Nonreactive Comment: Biotin has been identified by the sugar refiner as a potential interfering substance. Higher concentrations of biotin may be found in multivitamins, hair/nail supplements, and workout supplements. If the result does not match clinical observations, repeat testing after patient refrains from the use of supplements for at least 12 hours. Hepatitis B Core IgM Ab [[id number]] Collected: 03/12/21557 Lab Status: Final result Specimen: Blood, Peripheral Draw Updated: 03/13/21911 HBc IgM Ab, S Negative Hepatitis A IgM Ab, Serum [[id number]] Collected: 03/12/21557 Lab Status: Final result Specimen: Blood, Peripheral Draw Updated: 03/13/21950 Hepatitis A IgM Ab, S Negative Comment: Result does not exclude the possibility of exposure to hepatitis A virus. Antibody level during early infection stage may be below the limit of detection of the assay. HCV Ab w/Reflex to HCV PCR, Serum [[id number]] Collected: 03/12/21557 Lab Status: Final result Specimen: Blood, Peripheral Draw Updated: 03/13/21924 HCV Ab, S Negative Comment: Ferwnh-os-fkgbbl ratio is <1.00. Bacteria / Raudel Culture, Blood #1 [[id number]] Collected: 03/12/21556 Lab Status: Preliminary result Specimen: Blood, Peripheral Draw Updated: 03/13/21704 Bacteria/Raudel Culture, Blood No growth to date. Radiology: DX Chest Portable 1 View Final Result Persistent right basilar infiltrate or atelectasis. CT Chest with IV Contrast Final Result 1. Partial atelectasis of the bilateral lower lobes. Difficult to exclude superimposed infiltrates in the atelectatic lungs. Two subtle small areas of groundglass attenuation in the left upper lobe and right middle lobe, favored to represent minimal infectious/inflammatory change. 2. Moderate volume ascites. Small foci of intra-abdominal gas in the right anterior abdomen, in the setting of reported recent paracentesis. Small right pleural effusion. 3. Proximal large bowel distention with mixed attenuation stool/fluid suggesting possible functional obstruction. No evidence of mechanical large bowel obstruction. 4. Mild large bowel wall thickening, that may be related to fluid third spacing or possible colitis. No pneumatosis. 5. Small appearing pancreas with pancreatic head calcifications, suggesting sequelae of chronic pancreatitis. Splenomegaly. Patent portal and splenic veins. 6. Malpositioned appearing intrauterine contraceptive device. 7. Subacute appearing fracture of right anterior fifth rib. CT Abdomen Pelvis with IV Contrast Final Result 1. Partial atelectasis of the bilateral lower lobes. Difficult to exclude superimposed infiltrates in the atelectatic lungs. Two subtle small areas of groundglass attenuation in the left upper lobe and right middle lobe, favored to represent minimal infectious/inflammatory change. 2. Moderate volume ascites. Small foci of intra-abdominal gas in the right anterior abdomen, in the setting of reported recent paracentesis. Small right pleural effusion. 3. Proximal large bowel distention with mixed attenuation stool/fluid suggesting possible functional obstruction. No evidence of mechanical large bowel obstruction. 4. Mild large bowel wall thickening, that may be related to fluid third spacing or possible colitis. No pneumatosis. 5. Small appearing pancreas with pancreatic head calcifications, suggesting sequelae of chronic pancreatitis. Splenomegaly. Patent portal and splenic veins. 6. Malpositioned appearing intrauterine contraceptive device. 7. Subacute appearing fracture of right anterior fifth rib. CT Head without IV Contrast Final Result No acute CT abnormalities are demonstrated. DX Chest Portable 1 View Final Result 1. New endotracheal tube with tip positioned appropriately at the level of the clavicular heads. 2. New right IJ central venous catheter with tip positioned in the mid SVC. 3. New nasogastric tube with tip positioned in the mid stomach. 4. No pneumothorax status post right thoracentesis. 5. Marked interval decrease in right pleural effusion with associated atelectasis. 6. No acute airspace disease. DX Chest Portable 1 View Final Result Large right pleural effusion and right-sided consolidation. Centrally obstructing process within bronchus is not excluded. US Pelvis Transvaginal and Transabdominal (Results Pending) DX Chest Portable 1 View (Results Pending) DX Chest Portable 1 View (Results Pending) DX Chest Portable 1 View (Results Pending) DX Chest Portable 1 View (Results Pending) DX Chest Portable 1 View (Results Pending) DX Chest Portable 1 View (Results Pending) ASSESSMENT / PLAN 1. Acute encephalopathy secondary to hepatic etiology. Likely this has been precipitated by some underlying infection which could be spontaneous bacterial peritonitis versus pneumonia. 2. Acute respiratory insufficiency secondary to altered mental status requiring intubation and mechanical ventilation 3. 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 Anemia most likely related to chronic blood loss. Medical decision making; 1. Continue with lactulose with a goal of 400-800 cc of stool every 24 hours. We will add rifaximin. 2. Continue broad-spectrum antibiotic therapy for pneumonia/possible spontaneous bacterial peritonitis 3. Continue octreotide. infusion for a total of 72 hours 4. Wean off vasopressors as tolerated. 5. Patient has marginal urine output. We will give her a dose of albumin infusion in addition to a scheduled albumin. 6. Patient received 1 unit of PRBC for her anemia. 7. May require paracentesis again in tomorrow morning Prognosis overall is guarded. Updated patient's family. Total critical care time spent evaluating managing this patient today was 32 minutes. I personally discussed with the physical education specialist on-call Tyrell Wright DUMPER Criselda Maurer R.R.T., L.R.T. - 03/13/2021 6:09 PM CST Plan of Care: Patient remains intubated on ventilator. She was switched to ASV settings this morning. Plan to wean as tolerated. Principal Problem Change Mental Status ETT (Active) Placement Date/Time: 03/12/21 0947 Technique: Video laryngoscopy ETT Type: Standard ETT Tube Size: 7.5 mm Location: Oral ETT-Secured at (cm): 23 cm Arterial Line 03/12/21 Right Radial (Active) Placement Date/Time: 03/12/21 1130 Procedural Pause Completed: Yes Optimal Site Selected: Yes Catheter Time Out Checklist Completed: Yes Hand Hygiene Performed Prior to Insertion: Yes Site Prep: Chlorhexidine (Preferred) Site Prep Agent has Com... Ventilator Info: Ventilator Mode: ASV FiO2 (%): 30 % PEEP (cmH2O): 12 cm H20 Plateau (Pause) Airway Pressure: 18 cm H2O Compliance (mL/cm H2O): 48 mL/cm H2O Recent Labs 03/13/21 0537 PCO2 ART 30 L PH ART 7.46 H DUMPER Kerry Naranjo APRN, C.N.P., M.S.N. - 03/13/2021 10:05 AM CST SUBJECTIVE Catia Carias Remains intubated, on pressors in the ICU. She underwent thoracentesis and paracentesis on 03/12/2021. Paracentesis with 1500 mL return; diagnostic and therapeutic. G stain negative, bacterial cultures pending. Protein pending. Cell count differential total nucleated cells of 53, neut rophils not resulted at its percentage. Bilirubin remains stable at 6.1 was previously 6.0. Her AST 64 other LFTs normal. Hemoglobin drifting down was previously 7.7, 7.6, 7.4 and now 7.1-per nursing bedside and ICU attending patient will receive another unit of blood today. She continues to have NG to suction, did note coffee-ground return, query trauma from NG insertion. She has a rectal tube in place has received lactulose enemas with good return of brown stool. Lactulose was switched to NG tube;however nursing staff report the majority of it is returning. Of note ammonia level 110 this morning. OBJECTIVE Admission Weight: 54.2 kg Current Weight: 43.3 kg Vital Signs Height: 157.5 cm, Weight: 43.3 kg, BMI (Calculated): 17.5 kg/m??, Blood Pressure: (!) 118/51, Heart Rate: 73, Pulse Rate: 73, Resp Rate: 23, Temperature: 36.1 ??C, SpO2: 99 % PHYSICAL EXAM BP (!) 118/51 (BP Location: Right arm;Lower) Pulse 73 Temp 36.1 ??C (Temporal) Resp 23 Ht 157.5 cm Wt 43.3 kg SpO2 99% BMI 17.46 kg/m?? Lungs: On ventilator Heart: Regular rate Neurologic: Mental status: intubated and sedated, not able to assess DIAGNOSTICS I have reviewed labs, CT. CT Head without IV Contrast Result Date: 03/12/2021 Impression: No acute CT abnormalities are demonstrated. CT Chest with IV Contrast, CT Abdomen Pelvis with IV Contrast Result Date: 03/12/2021 Impression: 1. Partial atelectasis of the bilateral lower lobes. Difficult to exclude superimposed infiltrates in the atelectatic lungs. Two subtle small areas of groundglass attenuation in the left upper lobe and right middle lobe, favored to represent minimal infectious/inflammatory change. 2. Moderate volume ascites. Small foci of intra-abdominal gas in the right anterior abdomen, in the setting of reported recent paracentesis. Small right pleural effusion. 3. Proximal large bowel distention withmixed attenuation stool/fluid suggesting possible functional obstruction. No evidence of mechanical large bowel obstruction. 4. Mild large bowel wall thickening, that may be related to fluid third spacing or possible colitis. No pneumatosis. 5. Small appearing pancreas with pancreatic head calcifications, suggesting sequelae of chronic pancreatitis. Splenomegaly. Patent portal and splenic veins. 6. Malpositioned appearing intrauterine contraceptive device. 7. Subacute appearing fracture of right anterior fifth rib. DX Chest Portable 1 View Result Date: 03/13/2021 Impression: Persistent right basilar infiltrate or atelectasis. DX Chest Portable 1 View Result Date: 03/12/2021 Impression: 1. New endotracheal tube with tip positioned appropriately at the level of the clavicular heads. 2. New right IJ central venous catheter with tip positioned in the mid SVC. 3. New nasogastric tube with tip positioned in the mid stomach. 4. No pneumothorax status post right thoracentesis. 5. Marked interval decrease in right pleural effusion with associated atelectasis. 6. No acute airspace disease. Lab results last 24 hours: Recent Results (from the past 24 hour(s)) SARS Coronavirus-2 RNA, V Symptomatic Collection Time: 03/12/21 11:00 AM Specimen: Nasopharynx; Varies Result Value SARS-CoV-2 Specimen Source Swab, Nasopharynx SARS CoV-2 RNA, TMA Undetected Cell Count and Differential, Body Fluid Collection Time: 03/12/21 12:34 PM Result Value Fluid Type Pleural/Thoracentesis Gross Appearance Slightly Cloudy Total Nucleated Cells 350 Neutrophils 4 Lymphocytes 13 Monocytes/Macrophages 76 Other Cells 7 Other Cells Are: Mesothelial cells Reviewed by: Dr. Joshua Castrejon Gram Stain Collection Time: 03/12/21 12:34 PM Specimen: Pleural Fluid, Right Specimen Source Site: Fluid Result Value Gram Stain No organisms seen. White blood cells present. Stain performed on concentrated cytospin preparation. LD (Lactate Dehydrogenase) Collection Time: 03/12/21 12:59 PM Result Value Lactate Dehydrogenase (LD), P 218 Type and Screen (with reflex Antibody ID) Collection Time: 03/12/21 12:59 PM Result Value ABO Group B Rh Type POS Antibody Screen NEG Type & Screen Expiration 03/15/2021 23:59 ELXM Eligible Y Blood Gas with Coox, Arterial Collection Time: 03/12/21 12:59 PM Result Value P O2 102 P CO2 31 (L) pH 7.47 (H) Base Excess -1 HCO3 23 Hemoglobin, B 6.5 (L) O2Hb 96.9 COHb 1.8 MetHb 0.0 CtO2 9.1 (L) Arterial Sample Site Art Line Lactate, B Collection Time: 03/12/21 12:59 PM Result Value Lactate, B 2.2 Patient Status Collection Time: 03/12/21 12:59 PM Result Value FIO2 0.50 Bilirubin, Direct Collection Time: 03/12/21 12:59 PM Result Value Bilirubin, Direct, P 2.7 (H) Testing Location Collection Time: 03/12/21 12:59 PM Result Value Testing Location [facility] Glucose, POCT Collection Time: 03/12/21 2:06 PM Result Value Glucose, POCT, B 155 (H) Cell Count and Differential, Body Fluid Collection Time: 03/12/21 3:46 PM Result Value Fluid Type Peritoneal/Paracentesis Gross Appearance Serous Total Nucleated Cells 53 Lymphocytes 31 Monocytes/Macrophages 63 Other Cells 6 Other Cells Are: Mesothelial cells Comment SeeComment Reviewed by: Dr. Fox Gram Stain Collection Time: 03/12/21 3:46 PM Specimen: Peritoneal Fluid Specimen Source Site: Fluid Result Value Gram Stain No organisms seen. White blood cells present. Stain performed on concentrated cytospin preparation. Comprehensive Metabolic Panel Collection Time: 03/12/21 5:35 PM Result Value Potassium, P 2.5 (Crit L) Sodium, P 133 (L) Chloride, P 98 Bicarbonate, P 20 (L) Anion Gap, P 15 BUN (Blood Urea Nitrogen), P 9 Creatinine, P 0.57 (L) eGFR-Black/ >90 eGFR Non-Black/ >90 Calcium, Total, P 8.7 Glucose, P 190 (H) Protein, Total, P 5.5 (L) Albumin, P 3.4 (L) Aspartate Aminotransferase (AST), P 66 (H) Alkaline Phosphatase, P 97 Alanine Aminotransferase (ALT), P 16 Bilirubin, Total, P 6.0 (H) Magnesium Collection Time: 03/12/21 5:35 PM Result Value Magnesium, P 3.7 (H) Phosphorus Inorganic Collection Time: 03/12/21 5:35 PM Result Value Phosphorus (Inorganic), P 4.6 (H) Ammonia Collection Time: 03/12/21 5:35 PM Result Value Ammonia, P 80 (H) pH Collection Time: 03/12/21 5:35 PM Result Value pH 7.46 (H) Calcium, Ionized Collection Time: 03/12/21 5:35 PM Result Value Calcium, Ionized, B 4.70 Hemoglobin Collection Time: 03/12/21 5:35 PM Result Value Hemoglobin 7.6 (L) Glucose, POCT Collection Time: 03/12/21 6:11 PM Result Value Glucose, POCT, B 170 (H) Glucose, POCT Collection Time: 03/12/21 11:44 PM Result Value Glucose, POCT, B 120 Hemoglobin Collection Time: 03/13/21 12:11 AM Result Value Hemoglobin 7.4 (L) Basic Metabolic Panel Collection Time: 03/13/21 1:20 AM Result Value Potassium, P 2.9 (L) Sodium, P 134 (L) Chloride, P 99 Bicarbonate, P 20 (L) Anion Gap, P 15 BUN (Blood Urea Nitrogen), P 8 Creatinine, P 0.56 (L) eGFR-Black/ >90 eGFR Non-Black/ >90 Calcium, Total, P 8.9 Glucose, P 120 Ammonia Collection Time: 03/13/21 5:37 AM Result Value Ammonia, P 110 (H) CBC with Differential, Blood Collection Time: 03/13/21 5:37 AM Result Value Hemoglobin 7.1 (L) Hematocrit 21.0 (L) Erythrocytes 2.11 (L) MCV 99.5 (H) RBC Distrib Width 20.1 (H) Platelet Count 101 (L) Leukocytes 8.4 Neutrophils 6.72 (H) Lymphocytes 0.85 (L) Monocytes 0.86 (H) Eosinophils <0.03 Basophils <0.03 Comprehensive Metabolic Panel Collection Time: 03/13/21 5:37 AM Result Value Potassium, P 3.9 Sodium, P 135 Chloride, P 103 Bicarbonate, P 20 (L) Anion Gap, P 12 BUN (Blood Urea Nitrogen), P 8 Creatinine, P 0.56 (L) eGFR-Black/ >90 eGFR Non-Black/ >90 Calcium, Total, P 9.0 Glucose, P 115 Protein, Total, P 5.7 (L) Albumin, P 3.9 Aspartate Aminotransferase (AST), P 64 (H) Alkaline Phosphatase, P 90 Alanine Aminotransferase (ALT), P 14 Bilirubin, Total, P 6.1 (H) *Note: Due to a large number of results and/or encounters for the requested time period, some results have not been displayed. A complete set of results can be found in Results Review. ASSESSMENT / PLAN 1. Decompensated Cirrhosis - etiology likely alcohol related vs fatty liver vs pending further workup 2. Ascites- 3. Hepatomegaly, Splenomegaly 4. Jaundice 5. Coagulopathy 6. Anema, macrocytic 7. Thrombocytopenia 8. Elevated liver enzymes, direct hyperbilirubinemia 9. Altered Mental Status - elevated ammonia, hepatic encepholopathy 10. Coffee-ground NG tube output 11. Leukocytosis, Fever 12. Muscle wasting, cachexia 13. At risk for HCC 14. History of multiple episodes of pancreatitis, chronic pancreatitis ??MELD-Na score: 23 at 03/13/2021 5:37 AM MELD score: 22 at 03/13/2021 5:37 AM Calculated from: Serum Creatinine: 0.56 mg/dL (Using min of 1 mg/dL) at 03/13/2021 5:37 AM Serum Sodium: 135 mmol/L at 03/13/2021 5:37 AM Total Bilirubin: 6.1 mg/dL at 03/13/2021 5:37 AM INR(ratio): 2.2 at 03/12/2021 5:57 AM Age: 30 years PREVIOUS: MELD-Na score: 25 at 03/12/2021 5:57 AM MELD score: 22 at 03/12/2021 5:57 AM Diagnostic and therapeutic -paracentesis done 03/12/2021; No SBP, bacterial cultures pendinig, no growth from gram stain Recommendations: - Continue octreotide drip and IV PPI BID - No plan for EGD at this time, pending further workup may consider. Continue to monitor NG tube output and hemoglobin. - Concern for varices in this patient with new diagnosis of cirrhosis. Transfuse if indicated. - Monitor and replete electrolytes per primary team - Continue lactulose TID. Titrate to 3-4 bowel movements per day. - Additional labs for evaluation of SAAG, albumin and total protein pending Replace 25% albumin after paracentesis at 8g/L fluid removed. She has outside record of low total protein at <0.8 and will likely need indefinite SBP prophylaxis. - Additional labs sent to evaluate for other etiology of chronic liver disease - Ethyl glucuronide, ceruloplasmin, autoimmune hepatitis panel, alpha 1 antitrypsin: all pending - Viral hepatitis panel pending Please call with questions. Thank you for allowing us to be a part of this patient's care. Kerry Naranjo APRN, C.N.P., M.S.N. Gastroenterology and Hepatology [facility] DUMPER Associated attestation - Leslie Hawk M.D. - 03/13/2021 2:43 PM PAN DUMPER This is a supervisory note for gastroenterology consult performed by Ms. Naranjo I have reviewed the available records, interviewed and examined the patient. I agree with the history, physical examination, and plan as outlined in her note. Catia Carias is a 30 y.o. female with recent diagnosis of cirrhosis possibly alcohol related, and chronic pancreatitis admitted for altered mental status and possible multi organ failure. Currently patient remains intubated. Liver disease has been complicated by portal hypertension, encephalopathy, coagulopathy and ascites.No SBP. CT of the abdomen did not show any thrombus There is evidence of liver failure given by elevated INR encephalopathy and low albumin. MELD-Na score: 23 at 03/13/2021 5:37 AM MELD score: 22 at 03/13/2021 5:37 AM Calculated from: Serum Creatinine: 0.56 mg/dL (Using min of 1 mg/dL) at 03/13/2021 5:37 AM Serum Sodium: 135 mmol/L at 03/13/2021 5:37 AM Total Bilirubin: 6.1 mg/dL at 03/13/2021 5:37 AM INR(ratio): 2.2 at 03/12/2021 5:57 AM Age: 30 years Recommendations 1. Continue octreotide drip today day 2 of 3 2. Continue PPI b.i.d. 3.n terms of liver disease workup, autoimmune panel and ceruloplasmin is still pending. Glucuronide still pending. 4. No evidence of SBP however had low protein on prior paracentesis in the outside facility so will need prophylaxis with antibiotic 5. Will add INR today pending result may consider vitamin K 6. Continue lactulose through NG tube It was a pleasure seeing Ms. Carias today. Please feel free to contact our team if any further questions Virginie Valerio, Vanessa.Ph. - 03/13/2021 8:48 AM CST Pharmacist Progress Note Reason for admission: AMS and hypoxia PMH: recently diagnosed liver cirrhosis (unknown etiology, possibly alcohol) - elevated LFTs + ascites (4 L removed from paracentesis ~3 weeks ago), recurrent pancreatitis, ADHD, marijuana use OBJECTIVE Home medications: med rec not completed at this time ?? Held: n/a ?? Changed: n/a Patient own medications: n/a Prophylaxis: DVT: heparin 5000 units subcut q8h SUP: pantoprazole 40mg IV BID Cultures ?? Peritoneal fluid gram stain (03/12): No organisms seen, WBC present ?? Peritoneal fluid (03/12) x2: pending ?? Pleural fluid (03/12) x2: pending ?? Blood (03/12) x2: pending ?? MRSA PCR (03/12): negative ASSESSMENT / PLAN 1. Liver cirrhosis/ascites/encephalopathy ?? Lactulose 30 gm TID ?? 200 g x1 given 03/12 ?? Ammonia 110 (03/13), 127 (03/12) ?? Octreotide 25 mL/hr ?? Albumin 25 gm q6h ?? Pantoprazole 40 mg IV q12h ?? Thoracentesis/paracentesis 03/12 2. Intra-abdominal infection/SBP PPX ?? Day 2 Zosyn + doxy ?? Vanco load of 1 gm x1 given 03/12 ?? Per product analyst, plan for 5 days of broad spectrums then de-escalate to ceftriaxone - stop dates added ?? Rifaximin 550 mg BID starting 03/13 ?? Ceftriaxone starting 03/18 3. Mechanical ventilation ?? Sedation: ?? Propofol currently off ?? T (03/13) ?? Precedex: 0.7 mcg/kg/hr ?? Pressors: ?? Norepi drip decreased to 0.02 mcg/kg/min ?? Vasopressin decreased to 0.02 units/min 4. Tox screen ?? Unconfirmed positive for oxycodone and THC; negative for all other ?? Ethanol <10 Changes to medications anticipated at discharge: TBD Virginie Valerio, Pharm.D., R.Ph. DUMPER Sridhar Trevino R.R.T. - 03/13/2021 6:29 AM CST 2000-Pt seen this evening with 7.5 ETT, secured 22cm @ teeth. Pt on kincaid ventilator SCMV 18/320/+12/40% SpO2: 99% Breath Sounds/Secretions: clear/dim, suctioning out small white/yellow secretions. Pt tolerating ventilator well RT to follow DUMPER Virginie Valerio, R.Ph. - 03/12/2021 10:18 AM CST Pharmacist Progress Note Reason for admission: AMS and hypoxia PMH: recently diagnosed liver cirrhosis (unknown etiology, possibly alcohol) - elevated LFTs + ascites (4 L removed from paracentesis ~3 weeks ago), recurrent pancreatitis OBJECTIVE Home medications: med rec not completed at this time ?? Held: n/a ?? Changed: n/a Patient own medications: n/a Prophylaxis: DVT: heparin 5000 units subcut q8h SUP: pantoprazole 40 IV units daily Cultures ?? Pleural fluid (03/12) x2: pending ?? Blood (03/12) x2: pending ?? MRSA PCR (03/12): negative ASSESSMENT / PLAN 1. Liver cirrhosis/ascites ?? Lactulose 200 g x1 given, 30 gm TID ?? Ammonia 127 ?? Octreotide 25 mL/hr ?? Albumin 25 gm q6h ?? Pantoprazole 40 mg IV q12h ?? Thoracentesis/paracentesis planned for 03/12 2. Intra-abdominal infection ?? Day 1 Zosyn + doxy ?? Vanco load of 1 gm x1 given 03/12 ?? Tmax on admission 03/12: 39.1 3. Agitation/sedation ?? Propofol 30 mcg/kg/min ?? No TG results - monitor if still running in a few days ?? Ketamine 20 mg x2 and 30 mg x1 given ?? Norepi drip currently running at 0.15 mcg/kg/min ?? Vasopressin 0.04 units/min ?? Precedex: currently stopped 4. Tox screen ?? Unconfirmed positive for oxycodone and THC; negative for all other ?? Ethanol <10 Changes to medications anticipated at discharge: TBD Virginie Valerio, Pharm.D., R.Ph. DUMPER Shahida Brito R.R.T., L.R.T. - 03/12/2021 10:14 AM CST Pt was intubated with 7.5 ETT placed at 22@ teeth. Tube placement confirmed with bilateral breath sounds and positive ETCO2. She was placed on the ventilator at volume control 20/300/+8/40%. DUMPER documented in this encounter H&P Notes Ivan Lazo D.O. - 03/12/2021 7:12 AM CST SUBJECTIVE CHIEF COMPLAINT Catia Carias is a 30 y.o. female who presents with worsening altered mental status and hypoxia. HISTORY OF PRESENT ILLNESS Patient is a 30-year-old female with a history of recently diagnosed liver failure with undeterminedcause. Patient has been in a hospital over the last few months with different abdominal complaints and identification of elevated liver enzymes as well as ascites and altered mental status was determined. GI workup has not been started as an outpatient at this time. Patient also has a history of recurrent pancreatitis also with unknown causes. Patient was brought in to outside facility by her boyfriend and mom after being found unresponsive and having soiled herself at home. Patient lives with her boyfriend. He states that when he came home she would not respond to him. She has had some altered mental status fatigue on and off over the lastmonth and a half. This however was a were seated he had seen her. Over the last couple months she has complained of on and off body aches all over but nothing consistently. He denied any recent complaints in the last couple days that were new. Discussion with the mom was also held. Was able to identify that the patient has required paracentesis in the past approximately 3 weeks ago was the last 1 and a drained approximately 4 L. She has had a phone consultation with Tylor MALDONADO but no liver biopsy area thing has been performed at this time. As for the cause of her liver failure patient has denied the past any current heavy drinking but did have a history of heavy drinking in her early 20s and and episode of Tylenol overdose secondary to a fractured elbow few years ago. Otherwise mom and boyfriend both deny any recent alcohol use over the past year. At the outside facility patient started becoming more altered after initial planned admission there and requirement of high-flow nasal cannula was started. Because of this and her worsening mental status concern for ICU need was had therefore transferred to our ICU was made. Patient was hemodynamically stable. She was on high-flow nasal cannula. She was quite combative and requiring restraints to prevent her from pulling out IVs and pulling off oxygen. On arrival to our unit patient appeared similarbut did respond well to dose of ketamine given from the flight crew on arrival. She had apparently received Haldol and Ativan while at the outside facility with no improvement. Patient is unable to give us any history. The following portions of the patient's history were reviewed and updated as appropriate: allergies,current medications, family history, medical history, social history, surgical history and problem list. REVIEW OF SYSTEMS Review of systems not obtained due to patient factors: altered mental status. OBJECTIVE VITAL SIGNS I have reviewed the current vital sign data as applicable to this admission. PHYSICAL EXAM General: Patient appears jaundiced as well as chronically ill Cardiovascular: Tachycardic but regular rhythm Respiratory: Decreased breath sounds on right side with crackles Abdomen: Soft but quite distended. No evidence of any dilated vessels on her abdomen. No prior scarsidentified Extremities: No evidence of edema or any other wounds DIAGNOSTICS I have reviewed relevant laboratory, imaging, and other diagnostics as applicable to this admission. ASSESSMENT / PLAN #1 Cirrhosis Alcoholic (HCC) #2 Change Mental Status #3 Acute Respiratory Failure (HCC) #4 Anemia Macrocytic Neuro: -patient's mental status is quite altered from her baseline. She is not able to converse but does seem to be able to protect her airway. -awaiting return of all laboratory work but at this time we do know her ammonia is elevated and therefore will start lactulose to help treat her elevated ammonia which is likely contributing to her neuro status. -awaiting ABG to evaluate any blood gas disorders -patient apparently was responding to palpation of her abdomen earlier appearing to be tender. Will hold off on any sedating pain medication or Tylenol at this time. -Precedex has been ordered to help with the sedation as patient to his attempting to remove IVs and her oxygen and is quite spontaneous in her movements. -awaiting for tox screen as well to rule out any other co founding issues Cardiovascular: -at this time patient is tachycardic but hemodynamically stable -will continue to work with sedation to see if this helps her heart rate -will monitor for any increasing hypotension. Patient may require some fluid resuscitation as she did come in febrile with an elevated white count and may have some underlying sepsis as well. Respiratory: -patient has been hypoxic and tachypneic. -currently on high-flow with a rate of 45 and FiO2 of 50% satting 95%. -stat chest x-ray does demonstrate a large right pleural effusion. Unsure of the cause of this but may be secondary to her cirrhosis and ascites. Will plan for thoracentesis and drainage of that effusion today. -with any concerns of airway protection we will proceed with intubation GI: -at this time patient does have recent diagnosis of cirrhosis and labs do confirm this. We will consult GI for assistance with her cirrhosis -will use lactulose enema at this time for improving her ammonia -patient will likely require some kind of NG placement for medication but will wait until more labs are back and full team support was present in case patient does have varices. -patient will benefit from likely rifaximin and may require some antibiotics for prophylaxis. -patient did have some complaints of abdominal discomfort apparently and further workup will be needed. Paracentesis with fluid sent for culture will be beneficial today as well as a CT scan of the abdomen if able to be obtained. -NPO as of now but once NG is in place feeding can be considered. -patient again had likely had a consultation with [facility] and will request records from their service. -patient's meld score is over 20 and Child Saab score is class C Renal/electrolytes: -creatinine is 0.64 at this time. -patient's potassium, phosphorus, ionized calcium and magnesium were all low and these will be replaced as appropriate -continue to monitor electrolytes as lactulose given Infectious disease: -patient has been febrile and did have an elevated white count with no known source at this time. Again intra-abdominal versus pulmonary source to be considered -we will start her on broad-spectrum antibiotics and await culture results. Endocrine: -no known issues at this time Hematology: -initial hemoglobin is 7.7 and platelets are 144 with a white count of 12.7. -will continue to monitor and trend labs and transfuse if needed Prophylaxis: -will give GI prophylaxis and DVT prophylaxis Dispo: -patient is in critical condition with relatively newly diagnosed cirrhosis and worsening mental status. At this time multiple factors could be contributing to the worsening mental status including worsening liver failure and infection. Workup is ongoing and will treat things as this workup demonstrates appropriate. Family has been updated. Critical care time spent caring for patient separate from lines of procedures was 60 minutes DUMPER documented in this encounter Procedure Notes Barrera To M.D. - 03/12/2021 6:09 PM CSTAssociated Order(s): Invasive Line Post-Procedure Diagnose(s): Change Mental Status; Cirrhosis Alcoholic (HCC) Invasive Line Date/Time: 03/12/2021 10:45 AM Performed by: Barrera To M.D. Authorized by: Barrera To M.D. Location: ICU/PCU PROCEDURE DETAILS: Line type: arterial Laterality: right Location: radial Location details: new site Age group: adult Catheter diameter: 18 Ga Technique: ultrasound guided Ultrasound guidance: image not saved Number of attempts: 1 CONSENT Consent obtained: verbal Consent given by: parent (mom ) The benefits, risks and alternatives to the [...] was done as applicable. The procedural time-out was conducted prior to performing the procedure and confirmed in a procedural pause. PRE-PROCEDURE DETAILS: Indication(s): hemodynamic monitoring Appropriate hand hygiene, gown, cap, mask, protective eyewear, sterile gloves, skin preparation, sterile drape, and strict aseptic technique were utilized as applicable for the procedure.: yes Skin preparation: chlorhexidine SEDATION / ANESTHESIA Anesthesia method: topical application Topical application type: lidocaine POST-PROCEDURE DETAILS: Procedure completed successfully: yes Line secured: secured with sutureless device Chlorhexidine disc around insertion site and under catheter with slight turn: yes Complications - arterial: none DUMPER Barrera To M.D. - 03/12/2021 6:02 PM CSTAssociated Order(s): Invasive Line; Intubation; Thoracentesis; Paracentesis Post-Procedure Diagnose(s): Change Mental Status; Cirrhosis Alcoholic (HCC) Invasive Line Date/Time: 03/12/2021 6:02 PM Performed by: Barrera To M.D. Authorized by: Barrera To M.D. Location: ICU/PCU PROCEDURE DETAILS: Line type: central venous Laterality: right Location: jugular internal Location details: new site Additional catheter (i.e. multiple lines in same vessel): no Patient position: Trendelenburg Age group: adult Line Type: temporary (non-tunneled, non-implanted) Introducer: no Lumen(s): triple lumen Catheter diameter: 7 Fr Catheter insertion depth (cm): 16 cm Site the catheter was advanced to (this is the intended location and does not need to be proven by radiologic exam): central venous circulation Technique: ultrasound guided Ultrasound guidance: image acquired and saved Ultrasound comment: ultrasound guidance used demonstrating vessel patency and cannulation of the vessel observed. Vessel transduced: yes Monitored (venous): yes Number of attempts: 1 CONSENT Consent obtained: verbal Consent given by: parent (mom) The benefits, risks and alternatives to the [...] was done as applicable. The procedural time-out was conducted prior to performing the procedure and confirmed in a procedural pause. PRE-PROCEDURE DETAILS: Indication(s): medication/nutrition requiring central access Appropriate hand hygiene, gown, cap, mask, protective eyewear, sterile gloves, skin preparation, sterile drape, and strict aseptic technique were utilized as applicable for the procedure.: yes Skin preparation: chlorhexidine SEDATION / ANESTHESIA Anesthesia method: local infiltration POST-PROCEDURE DETAILS: Procedure completed successfully: yes Line secured: sutured Chlorhexidine disc around insertion site and under catheter with slight turn: yes Complications: none Intubation Date/Time: 03/12/2021 10:30 PM Performed by: Barrera To M.D. Authorized by: Barrera To M.D. Patient location during procedure: ICU / PCU PROCEDURE DETAILS: Mask difficulty assessment: easy mask Final airway type: video laryngoscope Laryngeal Manipulation: no Final best view of glottic structures - Cormack/Lehane Score: grade 2A ETT location: oral VL device: glide scope Hebo scope blade size: 3 Adult tube size: 7.5 Adult ETT distance at teeth/gum: 22 Oral tube type: standard ETT Cuffed: yes Number of attempt to successful placement: 1 Airway confirmation: bilateral breath sounds, positive ETCO2, bilateral chest rise and chest x-ray Other previous techniques attempted: none CONSENT Consent obtained: verbal Consent given by: parent (mom) The benefits, risks and alternatives to the [...] was done as applicable. The procedural time-out was conducted prior to performing the procedure and confirmed in a procedural pause. PRE PROCEDURE DETAILS: Pre evaluation for airway management: airway protection Urgency: emergent Preop assessment of probable difficulty: no difficulty anticipated Preoxygenation: bag valve mask SEDATION / ANESTHESIA Anesthesia method: deep sedation POST PROCEDURE DETAILS: Procedure outcome: successful Airway event: no complications Thoracentesis Date/Time: 03/12/2021 6:02 PM Performed by: Barrera To M.D. Authorized by: Barrrea To M.D. PROCEDURE DETAILS Location: right mid-axillary Intercostal space: 3rd Puncture method: [id number] catheter Number of attempts: 1 Drainage characteristics: serous Estimated amount of fluid removed (ml): 1200 Ultrasound guided: yes (US was used to marked the location) Image saved: no CONSENT Consent obtained: verbal (mom) Consent given by: parent The benefits, risks and alternatives to the [...] was done as applicable. The procedural time-out was conducted prior to performing the procedure and confirmed in a procedural pause. PRE-PROCEDURE DETAILS Procedure purpose: diagnostic and therapeutic Indications comments: hepatic hydrothorax vs paraneumonic effusion Appropriate hand hygiene, gown, cap, mask, protective eyewear, sterile gloves, skin preparation, sterile drape, and strict aseptic technique were utilized as applicable for the procedure. Site preparation: chlorhexidine SEDATION / ANESTHESIA Anesthesia method: topical application Topical application type: lidocaine Paracentesis Date/Time: 03/12/2021 6:02 PM Performed by: Barrera To M.D. Authorized by: Barrera To M.D. PROCEDURE DETAILS Equipment: paracentesis tray Needle gauge: 18 Ultrasound guidance: no (US marked spot) Puncture site: right lower quadrant Fluid removed amount (mL): 1500 Fluid appearance: yellow Specimen: specimen sent per request CONSENT Consent obtained: verbal Consent given by: parent (mom) The benefits, risks and alternatives to the [...] was done as applicable. The procedural time-out was conducted prior to performing the procedure and confirmed in a procedural pause. PRE-PROCEDURE DETAILS Procedure purpose: Diagnostic and therapeutic Indications: Ascites and r/o spontaneous bacterial peritonitis Appropriate hand hygiene, gown, cap, mask, protective eyewear, sterile gloves, skin preparation, sterile drape, and strict aseptic technique were utilized as applicable for the procedure.: yes Skin preparation: Chlorhexidine SEDATION / ANESTHESIA Anesthesia method: topical application Topical application type: lidocaine POST-PROCEDURE DETAILS Albumin replacement: 25g- 25% albumin Dressinx4 sterile gauze Procedure completed successfully: yes Complications: no apparent complications DUMPER documented in this encounter Consult Notes Ciara Stewart L.G.S.W. - 03/21/2021 2:09 PM CST Diagnostic Assessment SUBJECTIVE DEMOGRAPHIC INFORMATION Referral Source: CM/ROSAS Referral Referral Reason: Psychosocial assessment,Coping, adjustment and support,Discharge Planning Discharge Planning: (to be determined) Person(s) present during interview: Boyfrrosettad, Lobito Primary care clinic and provider: ELSEWHERE, PCP, Patient reported Dr. Roge Hernandez, [facility] to be her primary Doctor Primary Language: Gambian Field Assessor Services Used: No Legal Information: Voluntary Citizenship: Citizenship: [place] Citizen Resident Status: [place] Resident REASON FOR CONSULT Psychosocial assessment,Coping, adjustment and support,Discharge Planning Disclaimer: The patient was advised regarding the various topics to be interviewed during this evaluation. Patient consented to proceed. The information provided in the assessment is based on review ofthe medical record as well as the face to face interview with the patient. The patient was advised that the content of this interview will be shared with the health care team. It was discussed with thepatient that staff are mandated reporters and they reported understanding. No past medical history on file. No past surgical history on file. Allergies Allergen Reactions ??? Azithromycin Other (see comments) Unknown SOCIAL HISTORY Early growth and development: The patient met social and developmental milestones as expected. Family of Origin: The patient's mother reported their family of origin consists of the patient's father, Roscoe Carias, the patient's mother Parris and step- father Siva and patients 5 siblings, 3 brothers and 2 sisters. Patient's mother reported that their family is supportive.The patient's mother reported their family of origin consists of the patient's father, Roscoe Carias, the patient's mother Parris and step-father Siva and patients 5 siblings, 3 brothers and 2 sisters. Patient's mother reported that their family is supportive. Marital Status / Family / Household Status: single Patient has been in a relationship with her boyfriend Lobito for 12 years. Patient birthed one childin 2013 and gave this child up for adoption. Patient has no children that reside with her. Support Systems: Significant other,Parent,Family members. We have not received permission to contactthem. Primary caregiver: Self Support System: Significant other,Parent,Family members Spirituality / Taoist / Culture: , patient was raised [place] but does not currently attend jewish. 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 Past: None reported. ENVIRONMENTAL SUPPORTS Current Living Situation: Private residence Patient's Home Environment: Apartment Anticipated modifications to the patient's home environment: None FUNCTIONAL STATUS (ADL's and IADL's) Functional Status: Minimum assistance Level of Assistance: Minimal assist, patient does 75% or more Dressing: Independent Feeding: Independent Bathing: Independent Grooming: Independent Toileting: Independent Transfer to/from Bed, Chair, Etc.: Independent Mobility: Independent Meal Prep: Needs assistance Medication Setup/Administration: Independent Telephone Use: Independent Housekeeping: Independent Shopping: Needs assistance Managing Finances: Independent Behavior: Oriented Communication: Talks,Understands speaking,Understands Gambian,Can write It is anticipated that the patient will need assistance with (to be determined). ASSISTIVE DEVICES Patient has the following equipment: Eyeglasses,Contacts Patient anticipates potentially needing the following additional equipment: None Transportation needs: Support from family HELPDESK ADMINISTRATOR Caregiver Name: Lobito Brunson Caregiver Relationship: Significant other Caregiver FINANCES/INSURANCE Primary insurance: Mad MimiO Secondary insurance: N/A Income Information Does the Patient have any Financial Concerns?: Yes Income Source: Parent/primary caregiver employmen Income/Expense Information: Income meets expenses ADVANCE DIRECTIVES The patient does not currently have an advance directive on file. LEGAL HISTORY Review of the [place] Trial Court Public Access Website ([email or web address]) shows no past or current criminal charges. DISCHARGE PLANNING Barriers To Discharge: None Strengths: Premorbid level of function,Support of immediate family,Support of extended family/friends Type of Residence: Private residence Support Systems: Significant other,Parent,Family members Assistance Recommended after Discharge: (to be determined) Home Care Services: No Anticipated Discharge Destination: Home or Self Care Recommended Discharge Services: Primary Care Physician Follow-up Does the patient need discharge transport arranged?: No OBJECTIVE MENTAL HEALTH MENTAL HEALTH HISTORY: The patient reported historical diagnoses of Seasonal Depression. Per review of the patient's electronic medical record the patient has historical diagnoses of anxiety disorder unspecified and other specified behavioral and emotional disorders onset in childhood and adolescence. There is a reported family history of anxiety and depression. The patient reported no previous psychiatric hospitalizations. The patient is not currently engaged in any mental health treatment services. CURRENT PSYCHIATRIC MEDICATION: Patient is currently taking the following medications to address symptoms per review of electronic medical record and patient report: Medications the Patient Reported Taking acetaminophen (TYLENOL) 325 mg tablet (Taking) diphenhydrAMINE (BENADRYL) 25 mg tablet (Taking) furosemide (LASIX) 20 mg tablet (Taking) gabapentin (NEURONTIN) 100 mg capsule (Taking) lactulose (CHRONULAC) 10 gram/15 mL solution (Taking) omeprazole (PriLOSEC OTC) 20 mg EC tablet (Taking) ondansetron ODT (ZOFRAN-ODT) 4 mg disintegrating tablet (Taking) oxyCODONE (ROXICODONE) 5 mg immediate release tablet (Taking) spironolactone (ALDACTONE) 50 mg tablet (Taking) Patient reported the medication is effective. The patient denied any adverse side effects. Patient works with Dr. Hernandez, [facility], for medication management and support. Thepatient reported when she feels sick she does not eat for up to 1.5 or 2 weeks, and does not follow through with medications at these times. Additional Mental Health Treatment History will be explained below. Current Psychological Symptoms: Patient Appearance: Thin,Frail,Unkempt Behaviors Observed: Calm,Pleasant,Interactive Patient Level of Consciousness: Alert and oriented Status of Patient's Memory: Intact Patient Cooperation: Cooperative,Forthcoming Patient Mood: Euthymic Patient Affect: Mood-congruent Quality of Patient's Speech: Within normal limits for volume, rate and tone,Rambling Descriptor of Thought Content: No abnormality Thought Process Descriptor: Intact Sleep: Restful and sound Appetite: Variable Weight Status: Decreased Pain Status: Pain not well controlled Nutrition Status: Impaired Nutrition Anhedonia: Endorses Energy Status: Stable Concentration: Intact Perception: The patient denies perceptual disturbance,Does not appear to respond to internal stimuli Anxiety Symptoms: No symptoms of panic Depressive Symptoms: No symptoms of depressions Level of Judgement: Intact Suicide Risk and Safety Risk Assessment: [place] Suicide Risk Severity Scale (C-SSRS)Lifetime/Recent 03/21/21 1400 Suicidal Ideation 1. Wish to be (Lifetime) No 1. Wish to be (Past Month) No 2. Non-Specific Active Suicidal Thoughts (Lifetime) No 2. Non-Specific Active Suicidal Thoughts (Past Month) No 3. Active Suicidal Ideation with any Methods (Not Plan) Without Intent to Act (Lifetime) No 3. Active Sucidal Ideation with any Methods (Not Plan) Without Intent to Act (Past Month) No 4. Active Suicidal Ideation with Some Intent to Act, Without Specific Plan (Lifetime) No 4. Active Suicidal Ideation with Some Intent to Act, Without Specific Plan (Past Month) No 5. Active Suicidal Ideation with Specific Plan and Intent (Lifetime) No 5. Active Suicidal Ideation with Specific Plan and Intent (Past Month) No Suicidal Behavior Actual Attempt (Lifetime) No Actual Attempt (Past 3 Months) No Has subject engaged in non-suicidal self-injurious behavior? (Lifetime) No Has subject engaged in non-suicidal self-injurious behavior? (Past 3 Months) No Interrupted Attempts (Lifetime) No Interrupted Attempts (Past 3 Months) No Aborted or Self-Interrupted Attempt (Lifetime) No Aborted or Self-Interrupted Attempt (Past 3 Months) No Preparatory Acts or Behavior (Lifetime) No Preparatory Acts or Behavior (Past 3 Months) No Safety Assessment Patient denied passive and active suicidal and homicidal ideation. Lifetime/Recent: The [place] Suicide Severity Rating Scale (C-SSRS) Lifetime/Recent screening assessment was completed with the patient on 03/21/21. Within the patient's lifetime, the patient scored a0 related to suicidal ideation suggesting low risk. Further assessment of the patient's intensity of suicidal ideation was assessed over the patient's lifetime. The patient scored 0 out of 25; 25 meaning the intensity of ideation was high. Within the past one month, the patient scored a 0 related to suicidal ideation suggesting low risk. Further assessment of the patient's intensity of suicidal ideation was assessed over the past one month. The patient scored 0 out of 25; 25 meaning the intensity ofideation was high. Suicide risk factors include: , 30 y.o., female, single, chronic pain, acute pain, limited social support, isolation, patient is not compliant with medications, mood disorder diagnosis and serious or chronic physical health condition. Homicidal risk factors include: alcohol abuse in remission. Protective factors: patient reported no current suicidal thoughts, plan or intent, no current abuse of alcohol , no current use of illicit drugs, no access to firearms, patient has supportive family and patient has supportive friends. Based on the risk and protective factors described above and clinical interpretation of the [place]icide Severity Rating Scale (C-SSRS), the patient's suicidal risk is assessed as acutely low and chronically low. The patient's homicidal risk is assessed as acutely low and chronically low. SUBSTANCE USE Substance Use Extended History Alcohol: Alcohol Current or past use: Yes Type: Past Pattern of use: Liquor/substance of choice: Coors light, Ryan's Hard Lemonade, Vodka lemonade,wine Intravenous (IV) use: no What does the substance/alcohol do for you: nothing, reported no use in about one year Frequency/average per day/pattern of use: Patient reported 4-5 drinks per day, 2-3 days per week from ages [age], with no use in the last year Current use/date of last use: 03/2020 Amount of time obtaining/using/recovering: one year Excessive time spent in use: yes Loss of control: No Use despite medical provider recommendation to stop: No Cravings: No Persistent use despite social interpersonal effects: No Failure to fulfill major life roles: No Reduction in activities due to use: No Use in hazardous situations and against medical recommendations: No Persistent use despite emotional and physical effects: No Withdrawal (symptoms/seizures/Delirium Tremors (DT's)/history of binging/blackouts): no Active withdrawal symptoms: no Withdrawal management: no Longest period of sobriety/When/Any changes in mental health symptoms: one year Longest period of sobriety and when: One year Date of last use and time: 03/2020 per report Caffeine: Cannabis: Cannabis current or past use: Yes Type: Current Hallucinogens: Inhalants: Nicotine: Opioids: Sedative/Hypnotics/Anxiolytics: Stimulants: Over the counter medications: Other: Mental Health Treatment History Past Treatments: Psychotherapy, Pharmacotherapy Psychotherapy details: Patient's mother reports that the patient saw a therapist years ago. MARIBEL Blakely 03/13/21 Pharmacotherapies details: Patient's mother believes that the patient took antidepressant medicationyears ago but decided to manage depression and anxiety without medication. MARIBEL Blakely 03/13/21 Current Stressors 1. Medical complications related to liver and pancreas 2. Desire to return home Coping Skills/Strengths Distraction through watching TV, Family support, Time with friends and Time with pets Premorbid level of function,Support of immediate family,Support of extended family/friends ASSESSMENT / PLAN 03/21/21 1500 Audit-C Alcohol Screening How often do you have a drink containing alcohol? 0 MENTAL STATUS EXAM Orientation: Oriented to person, place and time Level of consciousness: Awake and alert Appearance: Frail and Thin Behavior observed: Calm and Interactive Memory: Impaired based on patient reported brain injury and recent head injury Estimated intellectual functioning: Average for developmental level Status of concentration: Good based on engagement in conversation Cooperation: Cooperative Mood: Calm Affect: Mood-congruent Speech: Articulate and Coherent. Thought process: Logical and goal-directed Thought content, auditory/visual hallucinations and/or delusions: Denies delusion, Denies perceptualdisturbance and Does not appear to respond to internal stimuli Judgement: Fair based on engagement in assessment, desire to participate as needed Insight: Fair based on engagement in assessment Motivation for treatment: Fair Safety: No safety risk to self or others assessed at this time Suicidal ideation: Denies suicidal ideation Homicidal ideations: Denies assaultive or aggressive ideation, intent, or plan IMPRESSIONS: Patient is meeting diagnostic criteria for unspecified Alcohol Related Disorder Patient endorsed symptoms of consumption of alcohol in moderate amounts(4-5 drinks per sitting) for about 5 years of her life, age [age]. Patient denies any alcohol use in over one year, suggesting sustained remission. Thepatient is medically diagnosed with pancreatitis and cirrhosis of the liver related to alcohol use. On this admission, patient presented with altered mental status, clinical concerns for psychosis and possible denise. Psychiatry and Psychology consult indicated the patient was disorganized in thought, speech and behavior, experiencing auditory and visual hallucinations and delusional thought content. Patient denies any of these concerns during this assessment. Patient denies any thoughts of alcohol use, cravings or ongoing use of alcohol or any other substances. Upon review, it is noted the patient did not present with ETOH. Patient reported duration of symptoms as at least one year. Patient reported experiencing significant distress or impairment in the following areas: medical management, quality of life, vocational engagement, leisure engagement. DIAGNOSIS (DSM-5): Alcohol Use Disorder, in sustained remission INTERVENTIONS 1. Inpatient clinical social work professor completed a diagnostic assessment in response to a chemical dependency order placed by Keerthi Guzman (ordering hospitalist). 2. terrazzo worker apprentice engaged the patient in Solution Focused Brief Therapy and Motivational Interviewingutilizing scaling questions and process questions and rapport building, empathetic communication, open ended questioning, summarizing and reflection to complete the assessment process. terrazzo worker apprentice recommended patient continue to follow direction of inpatient medical and mental health team to determine best plan of care for patient. Rule 25 assessment discussed with patient, however based on this residential mortgage underwriter's assessment and patient's disclosure, patient reports no drinking for over one year and does not feel that a Nate 25 assessment would be of benefit to her.. Patient was not resistive and responded well as evidenced by participation in assessment. 3. Coordination of care completed with patient. Recommendations include: ongoing medical treatment as needed, further discussion of Rule 25 with patient as desired by hospitalist 4. Social Work assisted in verbal education of the Rule 25 process with the patient. Patient reported having a Rule 25 or similar completed with Megan Rea about 5 years ago. Patient denies any current needs for a chemical health assessment or Rule 25. 5. terrazzo worker apprentice engaged in safety planning conversation. a. Patient was able to identify the following people and/or social settings that provide distraction: boyfriend, Lobito, family members. b. Mental health professionals, including crisis services, the patient can contact to help Crisis Services. c. In the event of an emergency, such as inability to care for self, suicidality, homicidally, or marked concern about safety; it has been recommended that the patient reach out for help by calling 9-1-1, or call the National Suicide Prevention Lifeline, local crisis center/mobile crisis team or present to the nearest emergency department for evaluation. PLAN 1. Patient will increase stabilization of medical conditions and ability to care for self. Patient will: participate in care planning with medical and mental health treatment team. 2. terrazzo worker apprentice will continue to assist as needed and as requested. 3. Anticipated barriers for patient to achieve treatment goals: Unknown at this time, patient declined to participate in Rule 25 or sign releases at this time but noted she would be open to re-visitingthis conversation closer to discharge based on team recommendations. Face to face time (for billing purposes) 50 minutes total time. Danny Newton 03/21/2021 DUMPER Jean Paul M.D., M.P.H. - 03/21/2021 12:07 PM CSTAssociated Order(s): IP CONSULT TO NEUROLOGY SUBJECTIVE Referring Provider: Keerthi Guzman M.D. CHIEF COMPLAINT / REASON FOR VISIT Catia Carias is a 30 y.o. female who presents for evaluation of spell. HISTORY OF PRESENT ILLNESS I did obtain collateral history from others today.(nurse and primary team) I have personally reviewed records from primary team for this visit. Ms. Carias is a 30 y.o. female with history of pancreatitis and alcohol use who was admitted due to cirrhosis (likely alcohol-related) presenting with altered mental status (which is likely related to hepatic encephalopathy and hypoxia). Her mentation has improved during hospitalization. Last night she had a spell. Per rapid response note Pt had episode last evening where her eyes rolled back and she stiffened her arms and went unresponsive for a few seconds, vitals remained stable, she woke up at and was alert but confuse as she had been before episode. Per nursing note Around 2100, pt had been talking and sitter reported that pts head tipped to the side while sitting in bed, eyes rolled back. TRUCK DRIVING called for help and upon RN entering room, noted pts arms tensing and shaking. CURATOR OF PHOTOGRAPHY AND PRINTS paged right away. VSS. Pt appearing sleepy upon residential mortgage underwriter entering room and then after a couple minutes did come around, became more alert, pt had stated this has happened before but then also stated has never had a seizure before. Pt states she just fell asleep. Patient remembered watching TV and then woke up to staff around her calling her name, she felt as ifshe just fell asleep. She did not feel confused or had soreness. No abnormal visual changes prior toepisode. She stated that she never had any similar event before (note this is different from what she told the nurse). She has no personal or family history of seizure. She was born full term without history of febrile seizure, meningitis or brain abscess. She stated she did not drink a lot and has been sober for a year. She denied other drug use. Lab from last night showed stable anemia, stable mild elevation of ammonia (63), mild elevated Calcium and elevated lactate (4.1). Neurology was consulted for the spell. The following portions of the patient's history were reviewed and updated as appropriate: allergies,current medications, family history, medical history, social history, surgical history and problem list. MEDICAL HISTORY No past medical history on file. SURGICAL HISTORY No past surgical history on file. SOCIAL HISTORY Social History Tobacco Use ??? Smoking status: Not on file ??? Smokeless tobacco: Not on file Substance Use Topics ??? Alcohol use: Not on file ??? Drug use: Not on file FAMILY HISTORY No family history on file. CURRENT MEDICATIONS No current facility-administered medications on file prior to encounter. Current Outpatient Medications on File Prior to Encounter Medication Sig Dispense Refill ??? acetaminophen (TYLENOL) 325 mg tablet Take 325-975 mg by mouth every 4 (four) hours as needed. ??? diphenhydrAMINE (BENADRYL) 25 mg tablet Take 25 mg by mouth every 6 (six) hours as needed for allergies. ??? furosemide (LASIX) 20 mg tablet Take 10 mg by mouth daily. ??? gabapentin (NEURONTIN) 100 mg capsule Take 200 mg by mouth 3 (three) times a day. ??? lactulose (CHRONULAC) 10 gram/15 mL solution Take 20 g by mouth 3 (three) times a day. ??? omeprazole (PriLOSEC OTC) 20 mg EC tablet Take 20 mg by mouth daily as needed. For GI upset ??? ondansetron ODT (ZOFRAN-ODT) 4 mg disintegrating tablet Take 4 mg by mouth every 6 (six) hours as needed. ??? oxyCODONE (ROXICODONE) 5 mg immediate release tablet Take 5 mg by mouth every 6 (six) hours as needed. ??? spironolactone (ALDACTONE) 50 mg tablet Take 50 mg by mouth daily. REVIEW OF SYSTEMS Ten-point review of systems completed; pertinent positives noted in HPI. OBJECTIVE I have reviewed vital signs as recorded in the EPIC record. PHYSICAL EXAMINATION General: No distress, alert, interactive and cooperative. NEURO EXAM: Mental State: Very talkative and somewhat tangential. Mildly impaired attention. Intact short term memory. Alert and oriented to self, date, place. No aphasia. General fund of knowledge was mildly impaired. Cranial Nerves: CN 2 Visual zarco full to confrontation. CN 3, 4, 6 Lids symmetric; no ptosis. EOMs normal alignment, full range. Non sustained gaze-provoked nystagmus. CN 5 Facial sensation intact bilaterally. CN 7 Normal and symmetric facial strength. Nasolabial folds symmetric. CN 8 Hearing intact to voice CN 9 Palate elevates symmetrically. CN 11 Normal strength of shoulder shrug and neck turning. CN 12 Tongue midline, with normal bulk and strength; no fasciculations. Motor: Muscle bulk: Normal throughout. Muscle tone: Normal in both upper and lower extremities. Movements: No fasciculations, tremors or other abnormal movement. Deltoid: R0L0 Biceps: R0L0 Triceps: R0L0 Wrist Flex: R0L0 Wrist Ext: R0L0 Finger Abd: R0L0 Hip Flex: R0L0 Knee Flex: R0L0 Knee Ext: R0L0 DorsiFlex: R0L0 PlantarFlex: R0L0 Sensory: LT intact in all extremities Reflexes: Biceps: R0L0 Triceps: R0L0 Brachioradialis: R0L0 Patellar: R+1L+1 Achilles: R0L0 Plantar Response: R flexor L flexor Coordination: [id number]: Intact b/l ASSESSMENT / PLAN Patient Active Problem List Diagnosis ??? Cirrhosis Alcoholic (HCC) ??? Change Mental Status ??? Acute Respiratory Failure (HCC) ??? Anemia Macrocytic ??? Abnormal Liver Function Test ??? Anxiety Disorder Unspecified ??? Other Specified Behavioral And Emotional Disorders With Onset Usually Occurring In Childhood AndAdolescence ??? Ascites ??? Cannabis Mild Use Disorder (Abuse) Uncomplicated ??? Gastroesophageal Reflux Disease Without Esophagitis ??? Hepatic Failure Unspecified Without Coma (HCC) ??? Long QT Syndrome ??? Pancreatitis Chronic (HCC) ??? Rhinitis Allergic ??? Patent Foramen Ovale (HCC) # Spell indeterminate. The exact nature of the spell is unclear. There are some features suggesting possible epileptic nature (eyes rolling and full body shaking) and some features that would be less typical(very brief in duration, some reported immediately responsive?). If it was an epileptic seizureit is likely triggered in the setting of hepatic encephalopathy with elevated ammonia. I would recommend getting CT head to ensure no new intracranial process and routine EEG to rule out focal epileptic activity. If these are unremarkable I do not think additional testing or antiepileptic would be indicated at this time. TIME: Total of 65 minutes is spent on the date of the encounter. Time included [id number] interview and evaluation, counseling the patient, reviewing records, reviewing relevant diagnostic tests, ordering tests, documenting clinical information in the electronic records and communicating with other p roviders. PATIENT EDUCATION Ready to learn, no apparent learning barriers were identified; learning preferences include listening. Explained diagnosis and treatment plan; patient expressed understanding of the content. DUMPER Sivakumar Reyes M.D. - 03/18/2021 5:14 PM CSTAssociated Order(s): IP CONSULT TO PSYCHIATRY & PSYCHOLOGY PSYCHIATRY CONSULT NOTE SUBJECTIVE REFERRING PROVIDER: Dr. Ulises Valle REASON FOR CONSULTATION Altered mental status/rule out denise HISTORY OF PRESENT ILLNESS Catia Carias is a 30 y.o. Admitted with acute on chronic liver failure. She has had several hospitalizations over the last few months with various abdominal complaints, elevated liver enzymes and ascites. She also has a history of recurrent pancreatitis. She was brought into an outside facility by her mother and boyfriend after being found unresponsive. She had some mental status changes on and off for the previous several weeks.She was hospitalized on medical and spent several days in the ICU.She has a history of pancreatitis, GERD and long syndrome, with a QTC of 516. She was found to have encephalopathy secondary to hepatic etiology, bacterial peritonitis. She required intubation for one or two days as well as paracentesis . Over the last several days she has become increasingly manic. Her speech was rapid and tangential. Thoughts became [...] having visual hallucinations as well as auditory. She appeared quite intact. It is impossible to obtain a lucid history from her at all she had to be constantly redirected. On occasion she could get back to the topic at hand but she frequently derailed completely. PAST PSYCHIATRIC HISTORY: The patient could provide no reasonable history but there were some records available for review. Positive for outpatient treatment for ADHD and anxiety, with some depression, but no reported or apparent history of psychosis or hospitalization. No reported history of suicide attempt.She has taken Zoloft in the past but had jaw clenching from that medication as well as Celexa.She was treated with stimulants (Adderall) from childhood to adolescence. CHEMICAL USE HISTORY: History of heavy alcohol abuse as well as marijuana use. She could not providedetails other than to say she had not drunk alcohol in over a year. Records indicate that her motherand boyfriend confirmed that report.Subsequent records however indicated that her boyfriend called and stated that she still drinks and has had confusion for about 1-1/2 months.She has at least one DUI, in approximately 2016. CURRENT MEDICATIONS Medications Report Scheduled Medication Ordered Dose/Rate, Route, Frequency Last Action albumin human 25 % injection 25 g 25 g, IV, Q6H LAWRENCE New Bag, 25 g at 03/18 1201 cefTRIAXone injection 1 g (ROCEPHIN) 1 g, IV, Daily Ordered folic acid tablet 1 mg 1 mg, oral, Daily Given, 1 mg at 03/17 1048 furosemide injection 20 mg (LASIX) 20 mg, IV, Q24H LAWRENCE Given, 20 mg at 03/18 0849 lactulose solution 30 g (CHRONULAC) 30 g, gastric tube, TID Given, 30 g at 03/18 1455 melatonin tablet 6 mg 6 mg, oral, Daily at bedtime Given, 6 mg at 03/17 2020 pantoprazole injection 40 mg (PROTONIX) 40 mg, IV, Q12H LAWRENCE Given, 40 mg at 03/18 0849 potassium chloride IVPB 10 mEq 10 mEq, IV, Q1H New Bag, 10 mEq at 03/18 1659 rifAXIMin tablet 550 mg (XIFAXAN) 550 mg, oral, BID Given, 550 mg at 03/17 2020 sodium chloride 0.9 % injection 5-15 mL 5-15 mL, IV, Q12H LAWRENCE Given, 10 mL at 03/18 0849 thiamine tablet 100 mg (VITAMIN B1) 100 mg, oral, Daily Given, 100 mg at 03/17 1048 PRN Medication Ordered Dose/Rate, Route, Frequency Last Action naloxone injection 0.2 mg 0.2 mg, IV, PRN Ordered oxyCODONE IR tablet 5 mg (ROXICODONE) 5 mg, oral, Q4H PRN Given, 5 mg at 03/16 0423 sodium chloride 0.9 % injection 10 mL 10 mL, IV, PRN Given, 10 mL at 03/17 0648 sodium chloride 0.9 % injection 5 mL 5 mL, IV, PRN Ordered Recent Results (from the past 24 hour(s)) CBC with Differential, Blood Collection Time: 03/18/21 8:35 AM Result Value Hemoglobin 7.1 (L) Hematocrit 21.3 (L) Erythrocytes 2.44 (L) MCV 87.3 RBC Distrib Width 19.8 (H) Platelet Count 77 (L) Leukocytes 6.2 Neutrophils 3.96 Lymphocytes 1.35 Monocytes 0.74 Eosinophils 0.08 Basophils <0.03 Comprehensive Metabolic Panel Collection Time: 03/18/21 8:35 AM Result Value Potassium, P 3.1 (L) Sodium, P 141 Chloride, P 106 Bicarbonate, P 20 (L) Anion Gap, P 15 BUN (Blood Urea Nitrogen), P 7 Creatinine, P 0.32 (L) eGFR-Black/ >90 eGFR Non-Black/ >90 Calcium, Total, P 10.2 (H) Glucose, P 109 Protein, Total, P 6.3 Albumin, P 5.4 (H) Aspartate Aminotransferase (AST), P 32 Alkaline Phosphatase, P 42 Alanine Aminotransferase (ALT), P 8 Bilirubin, Total, P 7.7 (H) Prothrombin Time (PT) Collection Time: 03/18/21 8:35 AM Result Value Prothrombin Time, P 28.8 (H) INR 2.6 ALLERGIES/CONTRAINDICATIONS Allergies Allergen Reactions ??? Azithromycin Other (see comments) Unknown MEDICAL HISTORY Acute on chronic liver failure Ascites Anemia, Required transfusion GI bleed Acute hypoxic respiratory failure Pleural Effusions Prolonged QT syndrome Possible cirrhotic cardiomyopathy Possible portopulmonary hypertension SURGICAL HISTORY ORIF left foot June 2015 FAMILY/SOCIAL HISTORY Catia's brother, 10 years younger, has a history of several serious suicide attempts and threats.He has been hospitalized multiple times for depression. Those suicide attempts include holding a gunto his head in front of the family, attempted hanging, and ingestion of soap and bleach.There is also a sister 7 years younger. She has a long standing relationship with her boyfriend. 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 REVIEW OF SYSTEMS Unable to obtain. OBJECTIVE VITAL SIGNS Vitals: 03/18/21 1400 BP: 110/68 Pulse: 98 Resp: 14 Temp: 37.2 ??C SpO2: 96% MENTAL STATUS EXAMINATION: Orientation: Oriented to person and date. Level of consciousness: Agitated and restless Appearance: Disheveled Behavior observed: Restless and fidgety but no abnormal movements were observed. Memory: Impossible to ascertain. Estimated intellectual functioning: Estimated within the normal range based on Past level of functioning Status of concentration: Poor due to active psychosis. Cooperation: Cooperative but unable to stay on track. Mood: Denied depression. Affect: Perplexed Speech: Rambling and disorganized Thought process: Very disorganized Thought content, auditory/visual hallucinations and/or delusions: Auditory and visual hallucinations, delusional thought content Insight:Poor. Motivation for treatment: Limited Suicidal ideation: Denies Homicidal ideations: Denies LABORATORY STUDIES: Recent Results (from the past 24 hour(s)) CBC with Differential, Blood Collection Time: 03/18/21 8:35 AM Result Value Hemoglobin 7.1 (L) Hematocrit 21.3 (L) Erythrocytes 2.44 (L) MCV 87.3 RBC Distrib Width 19.8 (H) Platelet Count 77 (L) Leukocytes 6.2 Neutrophils 3.96 Lymphocytes 1.35 Monocytes 0.74 Eosinophils 0.08 Basophils <0.03 Comprehensive Metabolic Panel Collection Time: 03/18/21 8:35 AM Result Value Potassium, P 3.1 (L) Sodium, P 141 Chloride, P 106 Bicarbonate, P 20 (L) Anion Gap, P 15 BUN (Blood Urea Nitrogen), P 7 Creatinine, P 0.32 (L) eGFR-Black/ >90 eGFR Non-Black/ >90 Calcium, Total, P 10.2 (H) Glucose, P 109 Protein, Total, P 6.3 Albumin, P 5.4 (H) Aspartate Aminotransferase (AST), P 32 Alkaline Phosphatase, P 42 Alanine Aminotransferase (ALT), P 8 Bilirubin, Total, P 7.7 (H) Prothrombin Time (PT) Collection Time: 03/18/21 8:35 AM Result Value Prothrombin Time, P 28.8 (H) INR 2.6 DIAGNOSES: Encephalopathy, apparently resolving Rule out bipolar disorder Alcohol use disorder ASSESSMENT / PLAN Catia Carias is a 30 y.o. female With a history of alcohol abuse, admitted with multiple complications from acute on chronic liver failure. Plan: Considering several options for treatment of the respondent's active psychosis and possible denise. She has a prolonged QT syndrome as well as liver failure. I will start her on Zyprexa 5 mg daily. Willdo another EKG tomorrow and monitor her response.We can consider transfer to the behavioral health unit upon medical stabilizationIf needed. Patient is currently admitted on a voluntary status, but is considered holdable if he decides to leave AMA Thank you for the consult. ADMINISTRATIVE BILLING Total time 60 minutes with greater than 45 minutes spent in counseling and coordination of care/obtaining collateral information from the patient's mother. Oumou Salinas M.B., Lilian Khan - 03/16/2021 10:54 AM CST General surgery limited consult noteL I was asked to by the primary team and ICU to evaluate the previous paracentesis site: Upon evaluation: The right lateral paracentesis side is actively bleeding most likely due to the patient's severe coagulopathy. She had been receiving blood products and her calculation profile is improving and heading in the right direction. We placed a [id number] suture around the paracentesis site. [facility] of the ICU team. Procedure: 5 mL of 1% lidocaine were injected around the paracentesis site. A 2 0 Vicryl suture was used to place the a [id number] stitch around the paracentesis site This was tied gently and there was ink had stopped. Of note even the puncture sites of the needle resulted in some oozing indicative of coagulopathy issue rather than just a bleeding vessel. Therefore a compression dressing was placed and we communicated to the bedside nurse to further reinforce that by applying a roll of Kerlix on top of the dressing and keep it in place with a small abdominal binder. Once coagulopathy is reversed, the suture can be removed at bedside by the ICU team. However if suture was not removed it is absorbable and will dissolve on its own after several weeks. Thank you for including us in the care of Mrs. Carias. General surgery will remain available if needed. Vik Harper, Erin, Lilian Shahida Adams L.S.W. - 03/13/2021 4:03 PM CST Psychosocial Assessment SUBJECTIVE DEMOGRAPHIC INFORMATION Referral Source: CM/SW Referral Referral Reason: Psychosocial assessment,Coping, adjustment and support,Discharge Planning Discharge Planning: (to be determined) Person(s) present during interview: Family Primary care clinic and provider: ELSEWHERE, PCP Primary Language: Gambian Field Assessor Services Used: No Legal Information: Legal Decision Maker: Self Advance Directives: N/A Advance Directives Status: N/A Legal Status (ARZ Excluded): Voluntary Citizenship: Citizenship: [place] Citizen Resident Status: [place] Resident REASON FOR CONSULT Psychosocial assessment,Coping, adjustment and support,Discharge Planning Patient is a 30 year old female admitted due to Change Mental Status [R41.82]. Social Work is following as a member of the Intensive Care Unit. Patient is currently intubated and sedated so this writercontacted the patient's mother Parris ([phone]) to complete a psychosocial assessment and to offer a supportive visit. Disclaimer: The family was advised regarding the various topics to be interviewed during this evaluation. Patient consented to proceed. The information provided in the assessment is based on review of the medical record as well as the face to face interview with the family. The family was advised thatthe content of this interview will be shared with the health care team. It was discussed with the patient that staff are mandated reporters and they reported understanding. No past medical history on file. No past surgical history on file. SOCIAL HISTORY Early growth and development: The patient met social and developmental milestones as expected. Family of Origin: The patient's mother reported their family of origin consists of the patient's father, Roscoe Carias, the patient's mother Parris and step- father Siva and patients 5 siblings, 3 brothers and 2 sisters. Patient's mother reported that their family is supportive. Marital Status / Family / Household Status: single. Patient has been in a relationship with her boyfriend Lobito for 12 years. Patient has no children. Support Systems: Significant other,Parent,Family members. We have not received permission to contactthem. Primary caregiver: Self Support System: Significant other,Parent,Family members Spirituality / Taoist / Culture: , patient was raised [place] but does not currently attend jewish. 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 Psychosocial Risk Factors impacting the patient: None Abuse, Neglect, Maltreatment, Trauma: Current: None reported. Past: None reported. ENVIRONMENTAL SUPPORTS Current Living Situation: Private residence Patient's Home Environment: Apartment Anticipated modifications to the patient's home environment: None FUNCTIONAL STATUS (ADL's and IADL's) Functional Status: Minimum assistance Level of Assistance: Minimal assist, patient does 75% or more Dressing: Independent Feeding: Independent Bathing: Independent Grooming: Independent Toileting: Independent Transfer to/from Bed, Chair, Etc.: Independent Mobility: Independent Meal Prep: Needs assistance Medication Setup/Administration: Independent Telephone Use: Independent Housekeeping: Independent Shopping: Needs assistance Managing Finances: Independent Behavior: Oriented Communication: Talks,Understands speaking,Understands Gambian,Can write It is anticipated that the patient will need assistance with (to be determined). ASSISTIVE DEVICES Patient has the following equipment: Eyeglasses,Contacts Patient anticipates potentially needing the following additional equipment: None Transportation needs: Support from family SERVICES REQUESTED None HELPDESK ADMINISTRATOR Formal and Informal Resources: Caregiver Name: Lobito Brunson Caregiver Relationship: Significant other Caregiver FINANCES/INSURANCE Primary insurance: [employer] Secondary insurance: N/A Income Information Does the Patient have any Financial Concerns?: Yes Income Source: Parent/primary caregiver employment Income/Expense Information: Income meets expenses ADVANCE DIRECTIVES None DISCHARGE PLANNING Barriers To Discharge: None Strengths: Premorbid level of function,Support of immediate family,Support of extended family/friends Type of Residence: Private residence Support Systems: Significant other,Parent,Family members Assistance Recommended after Discharge: (to be determined) Home Care Services: No Anticipated Discharge Destination: Home or Self Care Recommended Discharge Services: Primary Care Physician Follow-up Does the patient need discharge transport arranged?: No OBJECTIVE MENTAL HEALTH Mental Health History: Patient's mother socorroves that the patient has had anxiety and on and off depression. Current Psychological Symptoms: Patient Level of Consciousness: Obtunded Suicide Risk and Safety Risk Assessment: The [place] Suicide Risk Severity Scale (C-SSRS) was unable to be completed with the patient at this time. Homicidal: Homicidal Risk Current Homicidal Ideation: Unable to assess SUBSTANCE USE Patient's mother denied that the patient has had any illicit drug, alcohol, or tobacco use currently or in the past. Mental Health Treatment History Past Treatments: Psychotherapy, Pharmacotherapy Psychotherapy details: Patient's mother reports that the patient saw a therapist years ago. MARIBEL Blakely 03/13/21 Pharmacotherapies details: Patient's mother believes that the patient took antidepressant medicationyears ago but decided to manage depression and anxiety without medication. MARIBEL Blakely 03/13/21 Current Stressors Declining health, hospitalization Coping Skills/Strengths Family support Premorbid level of function,Support of immediate family,Support of extended family/friends ASSESSMENT / PLAN IMPRESSION This residential mortgage underwriter completed a psychosocial assessment of the patient with the patient's mother Parris. Parris states that the patient's health has dramatically declined over the last 5 weeks due to her liver disease and as a result of this the patient has had to quit her job, is no longer driving due to associated neuropathy and has required some assistance with household tasks such as cooking. Parris reports that the patient spends much of her day sleeping. Patient's significant other as well as her family have been supportive to the patient and patient's significant other is currently financiallysupporting the patient as well by paying rent and bills. Patient's mother reports that patient's significant other will be in today to sit with the patient. Patient's mother feels that family is copingwell and that they are checking in and leaning on each other for support. Parris denies any further needs from social work at this time but thanked this residential mortgage underwriter for the call. INTERVENTIONS 1. Psychosocial assessment completed. 2. Provided supportive services. 3. Provided education regarding the role of social work. 4. Provided education regarding referral resources and options. PLAN 1. Social Work will continue to follow and assist as needed or requested. Anticipated barriers to the transition of care/plan: None Светлана Guillen 03/13/2021 DUMPER Sera Morgan P.A.-C. - 03/12/2021 12:50 PM CSTAssociated Order(s): Gastroenterology consult (hospital) SUBJECTIVE Gastroenterology consult (hospital) Referring Provider: Nunu Sanches P.A.-C., M.S. Reason for Consult: liver cirrhosis with ascites History of Present Illness Ms. Carias is a 30 y.o. female with past medical history of recurrent pancreatitis, ADHD, marijuana use, probable alcohol use, and fairly recent diagnosis of cirrhosis with ascites who presents from [facility] being found unresponsive and incontinent at home. She was found by her boyfriend. All history obtained through chart review and careeverywhere as patient is currently intubated. On admission, her labs notable for anemia to 7.7, thrombocytopenia to 144, INR of 2.2, hyponatremia to 132, multiple electrolyte abnormalities with low Mg, phosphorus and K. Her bilirubin is elevated to 6.6. AST 45, ALT 13, and alk phos 126. She had elevated lactate to 9.3 and repeat 2.2. BNP elevatedto 1032. Normal lipase. Ammonia elevated at 127. She has leukocytosis to 12.7 and fever at 39 C thismorning. Urinalysis unremarkable, drug screen positive for oxycodone and cannabis. Tylenol, alcohol,and salicylate negative. She had CXR with large R pleural effusion and R-sided consolidation. She was altered on admission and mental status continued to worsen. She was intubated this morning. She is r eceiving lactulose enemas, with brown output. She also had NG tube placed today, with coffee-ground return. Blood cultures pending. Thoracentesis and paracentesis planned. She is not making urine. She was started on rifaximin, lactulose enema, and antibiotics (doxycycline, zosyn, and vancomycin). Per chart review, patient does have history of alcohol use but is inconsistent with her reports - tosome providers as recent as 1 month ago, others 1 year ago. Mother and boyfriend denied recent alcohol use. She has been requiring paracenteses as outpatient. Previous RUQ ultrasound and CT from 03/26/2020 [...] hepatomegaly and fatty liver, portal venous hypertension withrecanalized umbilical vein, splenomegaly, and ascites. She at that time has R pleural effusion and dependent atelectasis as well. Also has an IUD. MRCP with mild diffuse hepatic steatosis, hepatomegaly, [...] low total protein at <0.8. No SBP. REVIEW OF SYSTEMS Unable to assess, as patient is intubated. No past medical history on file. No past surgical history on file. The following portions of the patient's history were reviewed and updated as appropriate: allergies,current medications, family history, medical history, social history, surgical history and problem list. OBJECTIVE Admission Weight: 54.2 kg Current Weight: 54.2 kg VITAL SIGNS Height: 157.5 cm, Weight: 54.2 kg, BMI (Calculated): 21.8 kg/m??, Blood Pressure: (!) 102/46, Heart Rate: 84, Pulse Rate: 84, Resp Rate: 20, Temperature: 37 ??C, SpO2: 90 % Physical Exam General: chronically ill-appearing adult, intubated HEENT: Mucous membranes moist. +scleral icterus CV: Regular rate and rhythm. Normal S1 and S2. No murmurs/rubs/gallops appreciated Lungs: Diminished breath sounds on R, mechanically ventilated Abdomen: Soft, distended, no dilated veins. Normal bowel sounds. Extremities: Warm, dry. No edema. MSK: Significant muscle wasting noted Skin: Jaundice DIAGNOSTIC FINDINGS I have reviewed labs and diagnostics. DX Chest Portable 1 View Result Date: 03/12/2021 Impression: Large right pleural effusion and right-sided consolidation. Centrally obstructing process within bronchus is not excluded. Lab results last 24 hours: Recent Results (from the past 24 hour(s)) Glucose, POCT Collection Time: 03/12/21 5:48 AM Result Value Glucose, POCT, B 120 CBC without Differential Collection Time: 03/12/21 5:57 AM Result Value Hemoglobin 7.7 (L) Hematocrit 22.6 (L) Erythrocytes 2.12 (L) MCV 106.6 (H) RBC Distrib Width 15.7 Platelet Count 144 (L) Leukocytes 12.7 (H) Comprehensive Metabolic Panel Collection Time: 03/12/21 5:57 AM Result Value Potassium, P 3.0 (L) Sodium, P 132 (L) Chloride, P 94 (L) Bicarbonate, P 17 (L) Anion Gap, P 21 (H) BUN (Blood Urea Nitrogen), P 8 Creatinine, P 0.64 eGFR-Black/ >90 eGFR Non-Black/ >90 Calcium, Total, P 8.0 (L) Glucose, P 118 Protein, Total, P 5.6 (L) Albumin, P 2.9 (L) Aspartate Aminotransferase (AST), P 45 (H) Alkaline Phosphatase, P 126 (H) Alanine Aminotransferase (ALT), P 13 Bilirubin, Total, P 6.6 (H) Magnesium Collection Time: 03/12/21 5:57 AM Result Value Magnesium, P 1.1 (L) Phosphorus Inorganic Collection Time: 03/12/21 5:57 AM Result Value Phosphorus (Inorganic), P 1.9 (L) Prothrombin Time (PT) Collection Time: 03/12/21 5:57 AM Result Value Prothrombin Time, P 25.3 (H) INR 2.2 Lipase Collection Time: 03/12/21 5:57 AM Result Value Lipase, P 18 NT-Pro B-Type Natriuretic Peptide (BNP) Collection Time: 03/12/21 5:57 AM Result Value NT-Pro BNP, P 1032 (H) Ethanol Level, Serum Collection Time: 03/12/21 5:57 AM Result Value Ethanol, P <10 hCG (Human Chorionic Gonadotropin), Quantitative, Collection Time: 03/12/21 5:57 AM Result Value HCG, Quantitative, , P <0.5 Acetaminophen Level Collection Time: 03/12/21 5:57 AM Result Value Acetaminophen, P <7 Salicylate Level Collection Time: 03/12/21 5:57 AM Result Value Salicylate, P <0.3 S-TSH (Thyroid-Stimulating Hormone - Sensitive) Collection Time: 03/12/21 5:57 AM Result Value TSH, Sensitive, P 1.1 Lactate, B Collection Time: 03/12/21 5:57 AM Result Value Lactate, B 5.6 (H) pH Collection Time: 03/12/21 5:57 AM Result Value pH 7.63 (H) Calcium, Ionized Collection Time: 03/12/21 5:57 AM Result Value Calcium, Ionized, B 3.74 (L) Ammonia Collection Time: 03/12/21 5:58 AM Result Value Ammonia, P 127 (H) Hepatitis B Surface Antigen Collection Time: 03/12/21 5:58 AM Specimen: Blood, Peripheral Draw Result Value HBs Antigen, S Nonreactive Drug Screen Urine Collection Time: 03/12/21 6:23 AM Result Value Amphetamines, U Negative Barbiturates, U Negative Benzodiazepines, U Negative Buprenorphine, U Negative Cocaine, U Negative Methadone, U Negative Methamphetamines, U Negative Opiates, U Negative Oxycodone, U Unconfirmed Positive (A) Phencyclidine, U Negative Propoxyphene, U Negative Tetrahydrocannabinol, U Unconfirmed Positive (A) Tricyclic Antidepressants, U Negative Urinalysis with Microscopic if Indicated Collection Time: 03/12/21 6:23 AM Result Value Source Urine, Urine, Clean Catch Clarity Clear Color Priscilla Blood Negative Nitrite Negative Leukocyte Esterase Small (A) Protein Trace Glucose Negative Ketone Trace (A) Bilirubin Moderate (A) pH 6.0 Specific [place] 1.016 Urobilinogen 1.0 MRSA PCR, Nasal Collection Time: 03/12/21 6:23 AM Specimen: Nares; Swab Result Value MRSA Screen, Nasal by PCR Negative Microscopic Automated Collection Time: 03/12/21 6:23 AM Result Value White Blood Cells Occ-3 Red Blood Cells 3-10 (A) Dysmorphic Red Blood Cells <=25 Hyaline Casts 4-10 Squamous Cells Occ-3 Lactate, B Collection Time: 03/12/21 7:10 AM Result Value Lactate, B 9.3 (H) Blood Gas with Coox, Arterial Collection Time: 03/12/21 7:10 AM Result Value P O2 77 (L) P CO2 20 (Crit L) pH 7.53 (H) Base Excess -5 (L) HCO3 17 (L) Hemoglobin, B 7.6 (L) O2Hb 95.2 COHb 1.6 MetHb 0.0 CtO2 10.3 (L) Arterial Sample Site R-Radial Patient Status Collection Time: 03/12/21 7:10 AM Result Value FIO2 0.50 LD (Lactate Dehydrogenase) Collection Time: 03/12/21 12:59 PM Result Value Lactate Dehydrogenase (LD), P 218 Type and Screen (with reflex Antibody ID) Collection Time: 03/12/21 12:59 PM Result Value ABO Group B Rh Type POS Antibody Screen NEG Type & Screen Expiration 03/15/2021 23:59 ELXM Eligible Y Blood Gas with Coox, Arterial Collection Time: 03/12/21 12:59 PM Result Value P O2 102 P CO2 31 (L) pH 7.47 (H) Base Excess -1 HCO3 23 Hemoglobin, B 6.5 (L) O2Hb 96.9 COHb 1.8 MetHb 0.0 CtO2 9.1 (L) Arterial Sample Site Art Line *Note: Due to a large number of results and/or encounters for the requested time period, some results have not been displayed. A complete set of results can be found in Results Review. ASSESSMENT / PLAN Catia Carias is a 30 y.o. female with past medical history of recurrent pancreatitis, ADHD, marijuana use, history of narcotic use, probable alcohol use, and fairly recent diagnosis of cirrhosis with ascites who presents from outside hospital after being found unresponsive and incontinent at home. She has history of chronic abdominal pain - possibly due to chronic pancreatitis vs cirrhosis vs ascites. Ascites is new, per chart review, since January 2019. Etiology of cirrhosis is unknown at this time - possibly due to alcohol use vs fatty liver vs other. She is critically ill at this time with fever, leukocytosis, anemia, thrombocytopenia, coagulopathy, multiple electrolyte abnormalities, altered mental status, and elevated liver enzymes. She has right sided pleural effusion and consolidation and previous imaging with portal vein hypertension and cavernous transformation. She was intubatedthis morning and had NG tube placed with coffee-ground return. Per chart review, patient does have history of alcohol use but is inconsistent with her reports - tosome providers as recent as 1 month ago, others 1 year ago. Mother and boyfriend denied recent alcohol use. She has been requiring paracenteses as outpatient. Previous RUQ ultrasound and CT from 03/26/2020 [...] hepatomegaly and fatty liver, portal venous hypertension withrecanalized umbilical vein, splenomegaly, and ascites. She at that time has R pleural effusion and dependent atelectasis as well. Also has an IUD. MRCP with mild diffuse hepatic steatosis, hepatomegaly, [...] low total protein at <0.8. No SBP. 1. Decompensated Cirrhosis - etiology likely alcohol related vs fatty liver vs pending further workup 2. Ascites 3. Hepatomegaly, Splenomegaly 4. Jaundice 5. Coagulopathy 6. Anema, macrocytic 7. Thrombocytopenia 8. Elevated liver enzymes, direct hyperbilirubinemia 9. Altered Mental Status - elevated ammonia, hepatic encepholopathy 10. Coffee-ground NG tube output 11. Leukocytosis, Fever 12. Muscle wasting, cachexia 13. At risk for HCC 14. History of multiple episodes of pancreatitis, chronic pancreatitis MELD-Na score: 25 at 03/12/2021 5:57 AM MELD score: 22 at 03/12/2021 5:57 AM Calculated from: Serum Creatinine: 0.64 mg/dL (Using min of 1 mg/dL) at 03/12/2021 5:57 AM Serum Sodium: 132 mmol/L at 03/12/2021 5:57 AM Total Bilirubin: 6.6 mg/dL at 03/12/2021 5:57 AM INR(ratio): 2.2 at 03/12/2021 5:57 AM Age: 30 years Recommendations: - Continue octreotide drip and IV PPI BID - No plan for EGD at this time, pending further workup may consider. Continue to monitor NG tube output and hemoglobin. Concern for varices in this patient with new diagnosis of cirrhosis. Transfuse ifindicated. - Continue infectious workup - thoracentesis, paracentesis and blood cultures pending. UA unremarkable. Continue antibiotics per primary team. Consider echo. - CT scans pending. Consider biliary source as well, further evaluation with US and CT. - Monitor and replete electrolytes per primary team - Continue lactulose TID. Titrate to 3-4 bowel movements per day. - Added additional labs to paracentesis for evaluation of SAAG, total protein, SBP. Need albumin andtotal protein. Replace 25% albumin after paracentesis at 8g/L fluid removed. She has outside record of low total protein at <0.8 and will likely need indefinite SBP prophylaxis. - US abdomen with doppler to rule out portal vein thrombosis in young patient with new ascites - Additional labs sent to evaluate for other etiology of chronic liver disease - Ethyl glucuronide, ceruloplasmin, autoimmune hepatitis panel, alpha 1 antitrypsin - Viral hepatitis panel pending I personally spent over half of a total 60 minutes in counseling and discussion with the patient andcoordination of care as described above. I discussed this case with attending provider, Dr. Bellamy, who agrees with the plan at this time. Sera Morgan P.A.-C. DUMPER Associated attestation - Leslie Hawk M.D. - 03/12/2021 2:37 PM PAN DUMPER This is a supervisory note for gastroenterology consult performed by Ms. Morgan. I have reviewed theavailable records, interviewed and examined the patient. I agree with the history, physical examination, and plan as outlined in her note. Catia Carias is a 30 y.o. female admitted to ICU after being found unresponsive in the setting of liver failure. 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 Notes from Gastroenterology cirrhosis had been complicated by, ascites with negative SBP, portal hypertension (cavernous mal formation in portal vein) withsplenomegaly and mild thrombocytopenia. Unknown if encephalopathy had been an issue. It was thought that liver disease was from alcohol given AST and ALT ratio. I do not see secondary causes of liver disease have been excluded. Currently the patient is intubated due to agitation, anuric, on suppressors, with a lactate of 10. There is evidence of liver failure given by elevated INR , encephalopathy and low albumin. NG tube demonstrated small amount of dark blood. Stool is brown. Talk with primary team about prognosis and current multi organ failure. No indication for endoscopy due to patient critically ill and mild bleed. Unsure etiology of liver disease but certainly secondary causes should be ruled out Recommendations Octreotide drip PPI b.i.d. Antibiotic prophylaxis Paracentesis to assess for SBP Laboratories to rule out secondary causes of liver disease included autoimmune viral and ceruloplasmin were ordered Ethyl glucuronide was order Cross-sectional imaging to further delineate if there is active and acute thrombus in portal vasculature or hepatic veins Will continue following It was a pleasure seeing Ms. Carias today. Please feel free to contact our team if any further questions documented in this encounter Nursing Notes Hope Guerrier R.N. - 03/24/2021 12:18 PM CST INPATIENT NURSING DISCHARGE SUMMARY Discharge Provider: No att. providers found Admission Date: 03/12/2021 Discharge Date: 03/24/2021 DISCHARGE DISPOSITION Home/Self Care CONDITION AT DISCHARGE stable TREATMENTS None DEVICES/EQUIPMENT None PROFESSIONAL SKILLED SERVICES None MODE OF DISCHARGE Ambulatory TRANSPORTATION Private Vehicle ACCOMPANIED BY Nurse Discharge paperwork discussed with pt and all questions answered. All belongings sent home with patient. DUMPER Bernardo Rosario R.N. - 03/24/2021 4:20 AM CST Shift Goals: Clinical Goals for the Shift: Patient will report adequate rest Identify possible barriers to meeting goals/advancing plan of care: acuity of illness End of Shift Summary: Patient is alert and orientated x3. Patient did complain of some leg pain, wasgiven non-pharmacological options to help. Patient has not slept much overnight. Patient did have several fatty BMs overnight. Vital signs have remained stable. Plan of care to be continued by [facility]. DUMPER Hope Guerrier R.N. - 03/23/2021 4:32 PM CST Shift Goals: Clinical Goals for the Shift: Patient will remain safe Identify possible barriers to meeting goals/advancing plan of care: none End of Shift Summary: Patient denied pain today or complaints of stiffness from being in the bed. She has been ambulating around the room herself. She received 1 unit of blood today. Will continue withcurrent POC. DUMPER Lisa Stinson R.N. - 03/23/2021 5:50 AM CST Shift Goals: Clinical Goals for the Shift: Patient will remain safe and VSS Identify possible barriers to meeting goals/advancing plan of care: none End of Shift Summary: Patient rested part of the night. Patient was up early this morning. Ambulatedin hallways for restlessness. Color book/crayons given to help with restlessness. VSS. Patient denies pain. Will continue to monitor. DUMPER Carol Rodriguez R.N. - 03/22/2021 11:06 PM CST Shift Goals: Clinical Goals for the Shift: Patient will remain free from falls and get adequate rest Identify possible barriers to meeting goals/advancing plan of care: None End of Shift Summary: Patient slept intermittently throughout the shift and took a couple walks in the halls with the TRUCK DRIVING today. Pt reported having no abdominal pain and VS remained stable. Pt did not need her night dose ofLactulose as she reported having 3 stools earlier today. No other concerns present at this time, will continue with plan of care. DUMPER Jarek Horta R.N. - 03/22/2021 2:55 PM CST MARILUZ Follow up: This is a follow up to the Behavioral Emergency Response Team call for Anxiety,Agitation, at [facility]. I have reviewed the medical records, spoke with the patient's nurse, and met with the patient in person. Follow-Up Assessment: Copyholder met with patient assigned nurse. Patient nurse declines any MARILUZ concerns at this time. Due to no recent MARILUZ needs patient will be removed from MARILUZ list at this time. Contact MARILUZ with any future needs. Follow-Up: ?? There will be no further formal follow up at this time. If there are any questions or concerns, please feel free to contact the MARILUZ RN at [phone], or in an emergent situation by activating the MARILUZ team through the hospital typesetter perforator operator by dialing [phone]. Nola Ayers - 03/22/2021 4:49 AM CST Shift Goals: Clinical Goals for the Shift: Patient will remain free from falls and get adequate rest Identify possible barriers to meeting goals/advancing plan of care: mental status End of Shift Summary: Patient has been alert and oriented and cooperative tonight. Refused HS lactulose due to having 3 BMs during the day. Continues to be restless and speaking rapidly. Ambulating in room with steady gait. Took a shower around 2200 that lasted about 45 minutes and after dressed in her own clothing. Instructed patient that this was okay but telemetry needs to stay on and IV needs to be accessible. Patient was agreeable. Per patient request, melatonin and Zyprexa not given until 0100. Yajaira Chan R.N. - 03/21/2021 2:40 PM CST Rapid Response Follow Up Attending Provider: Keerthi Guzman M.D. Admission Date: 03/12/2021 Current Vitals: Vitals: 11/19/21 1100 BP: 117/75 Pulse: 105 Resp: 22 Temp: 37.3 ??C SpO2: 97% Rapid RN following for: ? seizure Assessment: pt alert Oriented x3 walking in room , has a sitter, vs stable, head ct negative, plan for eeg today Interventions: remove from furnishings conservator list Recommendations for primary RN: call for any further signs of seizures, continue to use safety protocols of seizures, seizure pads, suction in room, sitter /vcm as needed for safety, await eeg Rapid RN will continue to monitor for: none at this time Patient Disposition: has improved Rapid RN following prior to transfer to higher level of care, if applicable: Offered debrief to primary nurse: Encouraged primary RN to call CURATOR OF PHOTOGRAPHY AND PRINTS with questions, concerns, or if patient condition changes. Adina Zhao R.N. - 03/21/2021 6:48 AM CST Rapid Response Follow Up Attending Provider: Keerthi Guzman M.D. Admission Date: 03/12/2021 Current Vitals: Vitals: 03/21/21 0635 BP: 121/70 Pulse: 94 Resp: Temp: 37.7 ??C SpO2: 90% Rapid RN following for: questionable seizure activity Assessment: Pt had episode last evening where her eyes rolled back and she stiffened her arms and went unresponsive for a few seconds, vitals remained stable, she woke up at and was alert but confuse as she had been before episode. Lactic was 4, hgb 7.6 Ammonia 63. This AM hgb 7, Lactic 1.7 Interventions: seizure pads on bed, she did have sitter so instructed sitter to watch for seizure like activity. Recommendations for primary RN: Continue to monitor mental status, call CURATOR OF PHOTOGRAPHY AND [employer]INTS with any concerns Rapid RN will continue to monitor for: Will monitor for seizure like activity Patient Disposition: has improved Rapid RN following prior to transfer to higher level of care, if applicable: Offered debrief to primary nurse: Encouraged primary RN to call CURATOR OF PHOTOGRAPHY AND [employer]INTS with questions, concerns, or if patient condition changes. Bisi Kwong R.N. - 03/21/2021 6:38 AM CST Shift Goals: Clinical Goals for the Shift: Pt will remain safe. Identify possible barriers to meeting goals/advancing plan of care: none End of Shift Summary: Pt did not rest much until about 4 AM. PRN zyprexa and oxy utilized. Pt remains a 1:1 sitter at bedside, no seizure like activity noted during shift. Pt speech remains clear during shift. Lactate elevated at 4.1 at beginning of shift, down to 1.7 with morning labs. Will continue with plan of care. DUMPER Priscilla Morelos R.N. - 03/20/2021 11:03 PM CST Shift Goals: Clinical Goals for the Shift: Pt will remain safe. Identify possible barriers to meeting goals/advancing plan of care: Acuity of illness End of Shift Summary: Pt with no c/o pain or SOB. Adequate appetite and meal intake. Continues with sitter. Boyfriend had visited during visiting hours. Pts speech 50% garbled first half of evening shift, then became fairly clear. Around 2100, pt had been talking and sitter reported that pts head tipped to the side while sitting in bed, eyes rolled back. TRUCK DRIVING called for help and upon RN entering room,noted pts arms tensing and shaking. CURATOR OF PHOTOGRAPHY AND PRINTS paged right away. VSS. Pt appearing sleepy upon residential mortgage underwriter entering room and then after a couple minutes did come around, became more alert, pt had stated this has happened before but then also stated has never had a seizure before. Pt states she just fell asleep. Pr ovider rounded on pt and stated to monitor for further seizurelike activity, labs completed, PRN ativan is available PRN, will consult neuro if another seizure occurs. Neuros q4h. No further seizure activity. Did not take lactulose at HS, had 4bms today. Continue to monitor. DUMPER Tia Abbasi R.N. - 03/20/2021 10:38 PM CST MARILUZ Follow up: This is a follow up to the Behavioral Emergency Response Team call for Anxiety,Agitation, at [facility]. I have reviewed the medical records, spoke with the patient's nurse, and met with the patient in person. Follow-Up Assessment: Patient still has 1:1 sitter. Per primary RN report patient has been cooperative with no issues. Will continue to follow. Follow-Up: ?? The MARILUZ RN will follow up during their next rounds on the day shift. If there are any questions or concerns, please feel free to contact the MARILUZ RN at [phone], or in an emergent situation by activating the MARILUZ team through the hospital typesetter perforator operator by dialing [phone]. DUMPER Grazyna Barroso R.N. - 03/20/2021 2:34 PM CST Shift Goals: Clinical Goals for the Shift: Patient will remain safe, free of falls Identify possible barriers to meeting goals/advancing plan of care: Weakness, forgetfulness End of Shift Summary: Patient doing well this morning. She was agreeable to take all of her medications. Her speech continues to be slurred and garbled at times. Currently patient is resting comfortably in bed and significant other is visiting. Vitals remain stable, continue plan of care. DUMPER Cathie Rae, R.N. - 03/20/2021 1:34 PM CST MARILUZ Follow up: This is a follow up to the Behavioral Emergency Response Team call for Anxiety,Agitation, at [facility]. I have reviewed the medical records, spoke with the patient's nurse, and met with the patient in person. Follow-Up Assessment: Rounded and spoke with pt's nurse. She reports pt was more oriented this morning, less so this afternoon. Pt's significant other visiting most of the day. No MARILUZ interventions needed today. Follow-Up: ?? The MARILUZ RN will follow up during their rounds on the evening shift. If there are any questions or concerns, please feel free to contact the MARILUZ RN at [phone], or in an emergent situation by activating the MARILUZ team through the hospital typesetter perforator operator by dialing [phone]. DUMPER Tia Abbasi R.N. - 03/20/2021 6:49 AM CST MARILUZ Follow up: This is a follow up to the Behavioral Emergency Response Team call for Anxiety,Agitation, at [facility]. I have reviewed the medical records, spoke with the patient's nurse, and met with the patient in person. Follow-Up Assessment: No MARILUZ calls this shift. Will continue to follow. Follow-Up: ?? The MARILUZ RN will follow up during their next rounds on the day shift. If there are any questions or concerns, please feel free to contact the MARILUZ RN at [phone], or in an emergent situation by activating the MARILUZ team through the hospital typesetter perforator operator by dialing [phone]. DUMPER Juan Palacios R.N. - 03/20/2021 4:14 AM CST Shift Goals: Clinical Goals for the Shift: Pt will remain safe. Identify possible barriers to meeting goals/advancing plan of care: s/p BT End of Shift Summary: Pt just had BT of 1 unit PRBC and 1 unit FFP. She remained afebrile throughoutthe night. Pt was able to walk in the hallway with supervision and was not able to sleep well. Her mental status remain unchanged. No signs of acute distress. Still on VCM / sitter. RN will continue current plan of care. Juan Ashley R.N. - 03/19/2021 6:34 PM CST MARILUZ Follow up: This is a follow up to the Behavioral Emergency Response Team call for Anxiety,Agitation, at [facility]. I have reviewed the medical records, spoke with the patient's nurse, and met with the patient in person. Follow-Up Assessment: No requests for mariluz interventions today. Follow-Up: ?? The MARILUZ RN will follow up during their rounds on the evening shift. If there are any questions or concerns, please feel free to contact the MARILUZ RN at [phone], or in an emergent situation by activating the MARILUZ team through the hospital typesetter perforator operator by dialing [phone]. DUMPER Grazyna Barroso R.N. - 03/19/2021 1:00 PM CST Shift Goals: Clinical Goals for Shift: Monitor hemoglobin, patient will remain safe and free of falls Identify possible barriers to meeting goals/advancing plan of care: Weakness, Confusion End of Shift Summary: Patient doing well today. She appears less jaundice this morning. Her speech was clear early in the shift but then became garbled and incomprehensible again this afternoon. Hemoglobin and vitals remain stable, continue plan of care. Virginie Browning R.N. - 03/19/2021 4:18 AM CST Shift Goals: Clinical Goals for the Shift: Patient will remain safe and fall free Identify possible barriers to meeting goals/advancing plan of care: acuity of illness End of Shift Summary: Patient agreeable to most bedtime medications but refused lactulose and IV protonix. Provider made aware. At the beginning of this shift patient was resistant to some cares and somewhat irritable. Most of patient's sentences at this time were not making sense and were not following with the conversation. Patient was able to get about 4.5 hours of sleep overnight. Patient seemed to be slightly more oriented after sleeping. Patient remains a 1:1 sitter overnight for safety. Vitalsigns stable. Electronically signed by: Virginie Stahl R.N. 03/19/21 7:38 AM PAN DUMPER Criselda Heart R.N. - 03/18/2021 6:56 PM CST Shift Goals: Clinical Goals for the Shift: Patient will remain fall free. Identify possible barriers to meeting goals/advancing plan of care: Anxiety End of Shift Summary: Patient able answer orientation questions intermittently throughout the day. Patient refused oral medications and meals in the morning. Patient refused noon meal. Patient's speechbecame slurred periodically throughout the day. Neuro checks were clear. Patient more agitated in the afternoon. Provider present. Psych consulted. Psychiatry came to see patient in the evening. Vital sings stable. Family updated. Will continue plan of care. Catarino Balderrama R.N. - 03/18/2021 5:18 PM CST BEHAVIORAL EMERGENCY RESPONSE TEAM (MARILUZ) CALL RESPONSE NOTE SITUATION: Reason for call: Anxiety,Agitation Call type: Mariluz Date initiated : 03/18/21 Time initiated: 1449 Initiated by: Nurse ASSESSMENT: Patient is a 30 y.o. female admitted to the [facility] for Change Mental Status Copyholder called to pt room due to increased anxious behavior. Pt had refused her lactulose several times recently. Copyholder observed while pt received the a dose this afternoon. Her speech was rapid and tangental. Pt became visibly anxious during and after taking the lactulose. Pt began to slur her words and stutter. Pt's pupils were equal, round, and reacted briskly. Motor function/sensation assessment was normal. After other staff left the room residential mortgage underwriter talked with pt for a while and she calmed down. Her words became clear and her speech slowed down. She was still very tangental and distractible. When asked a question pt was able to initially comment on the subject but then start talking about something else. Pt talked about how she knew her primary RN was a different person than she was and that herRN was the sister or cousin of a TRUCK DRIVING. Copyholder spent time validating pt's feelings and when she was much calmer residential mortgage underwriter cleared from the situation. Individual Assignment prior to MARILUZ call: No INTERVENTIONS DURING CALL Management Skills: Reassurance,Verbal communciation/de-escalation,Decreased stimulation Environment: Limit noise,Remove medical equipment not in use Medications: Not applicable Resources: Not applicable RECOMMENDATIONS: Management Skills: Allow time for patient to calm,Assess factors that may contribute to delirium (pain, dehydration, retention of urine or stool, sleep deprivation, eye glasses, hearing aids in with working bateries),Avoid arguing or engaging in power struggles by remaining neutral,Consistency among all staff members caring for the patient by ensuring staff are aware of the plan of care,Involvement of family members might improve the patient's sense of security and provide distraction,Involve patient in decisions regarding the plan of care, including goals for treatment,If patient conversation is not based in reality, do not challenge the patient. Explore the feelings or needs expressed with statements such as You sound like you are afraid. Do you feel safe?,Offer reassurance that patient is safe and that they are in a safe place,Remain mindful of specific triggers that increase patient's agitation,Speak in low, quiet tone of voice to decrease stimulation,Speak slowly, in short, simple sentences to allow patient to process information Environment: Attempt to establish a normal routine for ADLs to allow patient to become more adjustedto the hospital environment,Decrease stimulation from the environment by limiting noises from the jack,Decrease stimulation from the environments by limiting number of people in the room at one time,Promote a safe environment by removing medical equipment when not in use,Provide an environment that supports a healthy sleep-wake cycle by providing adequate stimulation during daytime and decreasing stimulation at night,Use the environment to assist with orientation by dimming lights at night,Use the en vironment to assist with orientation by opening the blinds during the day,Use the environment to assist with orientation by providing meals at regular meal times Medications: Provide prn medication as ordered for anxiety and agitation Resources: Consider consult to psychiatry Follow Up: The [facility] RN will follow up within the next four hours If there are any questions or concerns, please feel free to contact the [facility] RN at [phone], or in an emergent situation by activating the [facility] team through the hospital typesetter perforator operator by dialing [phone]. Virginie Browning R.N. - 03/18/2021 4:10 AM CST Shift Goals: Clinical Goals for the Shift: Patient will remain safe and fall free Identify possible barriers to meeting goals/advancing plan of care: acuity of illness End of Shift Summary: Patient remains hyper talkative overnight. Patient did not receive much sleep tonight. Patient refused lactulose at bedtime, provider aware. Patient bladder scanned for 546mL overnight. Patient able to get up to the commode with assist of two, and was able to void. Bladder scanned for 200mL post void. Patient voided 350 this morning. Patient requiring 1:1 sitter overnight for safety. IV antibiotics continued as ordered. Vital signs stable. Electronically signed by: Virginie Stahl R.N. 03/18/21 6:07 AM PAN DUMPER DUMPER Criselda He R.N. - 03/17/2021 5:44 PM CST Shift Goals: Clinical Goals for the Shift: Patient will be compliant with medications. Identify possible barriers to meeting goals/advancing plan of care: Confusion End of Shift Summary: Patient able to answer orientation questions appropriately intermittently. Overall patient is unable to track a conversation, is hyper talkative, delusional, has poor attention, and having visual hallucinations. Patient drank water with medications in the morning. Patient refusedto take 1400 dose of lactulose. Reynolds and rectal tube removed per provider order. Patient refusing meals. [facility] nurse consulted. Patient continues to be incontinent of stool. No urine out put since reynolds removal at 1445. Will continue plan of care. DUMPER Nola Frederick - 03/17/2021 5:37 AM CST Shift Goals: Clinical Goals for the Shift: Monitor mental status and output Identify possible barriers to meeting goals/advancing plan of care: mental status End of Shift Summary: When I assumed care at 1900, patient was talking rapidly and did not stop all night. Has not slept. Is able to answer orientation questions appropriately but has flight of ideas and rambling speech and becomes fixated on ideas at times. Appears to be talking to someone when no one is in the room. Was observed frantically writing nonsense on a piece of paper and typing lengthy messages on her cell phone. Is unable to follow commands. I contacted the on-call provider and receivedorder for melatonin which did not help the patient sleep. VSS. SR/ST on telemetry. Reynolds and Rectal tube maintained. Bed alarm on. Patient was not pulling at lines or devices and was not trying to get out of bed. Demonstrated ability to use call light but did not call for assistance at any point. DUMPER Hilda Bower R.N. - 03/16/2021 8:04 PM CST Shift Goals: Clinical Goals for the Shift: Monitor mental status and output Identify possible barriers to meeting goals/advancing plan of care: Liver disease End of Shift Summary: Status: Pt is in stable condition. Chatty today. Openly discussing emotions and difficulties r/t diagnosis. Continued teaching about diagnosis throughout shift. Boyfriend, Lobito, was here most of the day at bedside and appears very supportive.Pt transferred to medical floor. Neuro: A&Ox3. Cardiac: SR Is getting scheduled Albumin. Respiratory: 3L O2 via NC, was on 5L much of day. Using IS with good effort and achieving 12-1500. Scattered fine crackles posteriorly. Excretion: Has Reynolds with over 2 liters UOP after 20 mg Lasix. Is getting scheduled Lactulose for elevated Ammonia levels to achieve 1000 mls in 24 hours. Has Flexiseal and had 600 mls this shift.Rightparacentesis continued bleeding this morning. Had large amount red blood with clots.Surgery was consulted. They placed a stitch applied a dressing and abdominal binder. Skin: Has large amt bruising over entire body. Also, above mentioned binder and dressing. Diet: Poor clear liquid intake, mostly frozen lemon Icee. Ate part of one meal over about 2 hours. Labs: Replaced K+, Mg and Phos and calcium today. Was given three units PRBC and 2 units FFP. Hgb stabilized this afternoon. Lines/drips: Pulled right IJ and art line, cont to have 2 PIVs. DUMPER Ricardo Rosado REric. - 03/16/2021 4:28 AM CST Shift Goals: Hemodynamic stability Identify possible barriers to meeting goals/advancing plan of care: Acuity of illness End of Shift Summary: Patient more talkative and oriented this shift. Blood products given due to low lab values, please refer to lab results. 1 units PRBC, 1 unit FFP and 2 units Cryo given this shift. Continues to have bloody output from paracentesis site. Patient very pleasant and grateful. Replaced magnesium, calcium, potassium and phos. DUMPER Hilda Bower R.N. - 03/15/2021 6:00 PM CST Shift Goals: Clinical Goals for the Shift: Extubate, VSS, Identify possible barriers to meeting goals/advancing plan of care: Comorbidities End of Shift Summary: Status: Pt is in stable condition. Chatty today. Openly discussing emotions and difficulties r/t diagnosis. Did teaching about diagnosis throughout shift. Boyfriend, Lobito, was here most of the day at bedside and appears very supportive. Neuro: A&Ox3. Cardiac: SR Stopped Vasopressin, Is getting scheduled Albumin. Respiratory: 3L O2 via NC, was on 5L much of day. Using IS with good effort and achieving 12-1500. Scattered fine crackles posteriorly. Excretion: Has Reynolds with 2500 mls UOP after 20 mg Lasix. Is getting scheduled Lactulose for elevated Ammonia levels. Has Flexiseal and had 600 mls this shift.Right paracentesis site began bleeding this morning. Had large amount red blood. Placed ostomy bag about noon. Earlier had abut 100 ml/hr output. The last few hours had over 200 mls/hr for total of 850 mls measured and three episodes with largeamount unmeasurable bleeding prior to ostomy bag placement. Skin: Has large amt bruising over entire body. Diet: Poor clear liquid intake, mostly frozen lemon Icee. Labs: Replaced K+, Mg and Phos twice today. Was given one unit PRBC and 2 units FFP. Hgb 6.9 at shift change, increased to 7.9 after PRBC, at 1700 was 7.6. Lines/drips: Has a right IJ and 2 PIVs. DUMPER Ricardo Rosado R.N. - 03/15/2021 6:34 AM CST Shift Goals: Hemodynamically stable Identify possible barriers to meeting goals/advancing plan of care: Acuity of Illness End of Shift Summary: Continues on Vasopressin to assist with blood pressure. Levo turned on for a short time to bring MAP >60. Utilized PRN Oxy twice this shift. Has been able to sleep very minimally. Potassium, Magnesium and phos replaced this shift. DUMPER Hilda Bower RGabby - 03/14/2021 6:45 PM CST Shift Goals: Clinical Goals for the Shift: Extubate, VSS, Identify possible barriers to meeting goals/advancing plan of care: Comorbidities End of Shift Summary: Status: Pt is in stable condition. Very flat affect and tearful at times. Boyfriend, Lobito, was heremost of the day at bedside and appears very supportive. Neuro: A&Ox3. However, mentation is altered. Several times has made several strange statements, such as I think we are connected by the fob Boyfriend said she meant a judd fob. Cardiac: SR to SB, BP is soft. Remains on Vasopressin at 0.4. Is getting scheduled Albumin. Respiratory: Was extubated today. Hypoventilates and is on 4L O2 via NC.Using IS with good effort and achieving 800 Excretion: Has Reynolds, and had very poor UOP. Was given Lasix and had 600 mls UOP for shift. Is getting scheduled Lactulose for elevated Ammonia levels.Early in shift had no stool, but after afternoon Lactulose had large amount of stool with total of 800 mls this shift. Skin: Has large amt bruising over entire body. Diet: Started CL diet this afternoon after passing Turner. Has taken very small amounts. Labs: Replaced K+ today. Lines/drips: Has a right IJ and 2 PIVs. Sara Nguyen R.N. - 03/13/2021 9:51 PM CST Shift Goals: Clinical Goals for the Shift: VSS, tolerate ventilator Identify possible barriers to meeting goals/advancing plan of care: Acuity of illness, ventilator patient End of Shift Summary: Patient tearful with turning, able to answer yes/no questions, and stated she was in pain. Propofol restarted for comfort overnight, currently on 25 mcg/kg/min, 0.5 mcg/kg/hr precedex. DUMPER Diya Weiss R.N. - 03/13/2021 5:05 PM CST Shift Goals: Clinical Goals for the Shift: stable vital signs, MAP greater than 65, electrolyte balance, improve mentation, wean ventilator Identify possible barriers to meeting goals/advancing plan of care: severity of illness End of Shift Summary: Patient remains in the ICU on the ventilator. Sedation vacation done throughout the day, precedex increased to 0.8 with this. Patient received 1 unit RBC this afternoon. Norepi stopped at 1255 and Vaso titrated down with MAP goal (>65 per Underwriting Intern) achieved. Patient appear to have improving mental status and will follow some commands (thumb up). Patient' significant other visited this afternoon and was updated on plan of care. Patient's mother also updated via phone. Patient's significant other and mother both verbalized understanding. Baldemar Eng R.N. - 03/13/2021 6:36 AM CST Shift Goals: Clinical Goals for the Shift: electrolyte balance improvement, decrease agitation Identify possible barriers to meeting goals/advancing plan of care: Acuity of care End of Shift Summary: Pt tolerated vent fairly well, precedex was needed @ 0245 and ran up to 0.05. MAP>70 on Vaso and Levo 0.05-0.08. Since 1899, UO 370mL and stool 330mL, Noc Lactulose held. 1u RBC given @ 1600, 100 IV and 40 PO potassium given. Electronically signed by: Baldemar Evangelista R.N. 03/13/21 6:36 AM PAN DUMPER DUMPER Diya Weiss R.N. - 03/12/2021 3:00 PM CST Shift Goals: Clinical Goals for the Shift: electrolyte balance improvement, decrease agitation Identify possible barriers to meeting goals/advancing plan of care: severity of illness End of Shift Summary: Patient remains in the ICU. This AM, was altered, continuously moaning and increased with any stimulation and required the use of 4 point restraints to prevent patient from pulling lines out. Patient was intubated this AM and remains sedated on the ventilator. Central Line and Art erial line placed today. Thoracentesis performed with 1000 ml return. Paracentesis performed with [address] ml [address] Patient had CT scans of head, chest, abdomen and pelvis today. No family visiting this shift. Underwriting Intern updated patient's mother via phone call. DUMPER Criselda Valentin R.N. - 03/12/2021 6:45 AM CST Pt direct admit from [place] to room 3411. Pt agitated, moaning, not following commands, restlessand crawling out of bed/pulling at lines. Pt given ketamine push per flight crew and responded well to that. BP stable, ST rates 130-140's, pt febrile temp 39.1. Ice packs and fans in place. Precedex drip started for increasing agitation/restlessness. Providers at bedside, updated on current labs including lactic 5.6, no new orders at this time. Cxray done, large right pleural effusion noted, will plan for thoracentesis along with paracentesis for ascites today. Pt boyfriend called and updated, boyfriend states patient still drinks and has had confusion for about a month and half, states she stopped forming sentences yesterday and had increased confusion, which led him to bring her to the ED. DUMPER documented in this encounter Miscellaneous Notes Hospital Course - Junaid Cast M.D. 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 Patient has been in a hospital over the last few months with different abdominal complaints and identification of elevated liver enzymes as well as ascites and altered mental status was determined. Patient was brought in to outside facility by her boyfriend and mom after being found unresponsive and having soiled herself at home Patient was Altered mental status/more confused. Patient was altered mental status/ confused secondary to Hepatic encephalopathy that landed her intoICU: This could have been precipitated by SBP v/s pneumonia. Patient was found to have pneumonia treated with vancomycin and zosyn. GI is consulted. Patient was extubated on 03/14. Patient had paracentesis yesterday and patient recieved total of 5 units PRBC and 4 units of FFP yesterday. She was transferred to [facility] 03/16. -- continue Lactulose titrate down have no more than 1-1.5 L of liquid stool out. Rectal reynolds catheter removed today. Continue Rifaximin, Ceftriaxone. monitor BM patient has before discharge. ---Per GI no EGD, and future paracentesis will recommend replacement of 25% albumin at 8 g/l fluid removed. Will likely need indefinite SBP prophylaxis., Folate/Thaimine replaced, Electrolyte monitoring Finished the course abx for community acquired pneumonia DUMPER documented in this encounter Plan of Treatment Upcoming Encounters Date Type Specialty Care Team Description 01/07/2022 Office Visit Community Internal Medicine Ranjit Red P.A.-C. [address] [facility] [place] [phone] (Wo rk) 01/12/2022 Appointment Laboratory Medicine Matthew Jerome M.B.B.S., M.D. [address] [place] [phone] (Wo rk) 01/12/2022 Appointment Laboratory Medicine Adeline Frazier M.D., Ph.D. [address] [place] [phone] (Wo rk) 01/13/2022 Telemedicine Transplant Joel Tan L.I.C.S.W., M.S. W. [address] [place] [phone] (Wo rk) 01/13/2022 Telemedicine Transplant Matthew Jerome M.BSumaB.S., M.D. [address] [place] [phone] (Wo rk) 01/13/2022 Telemedicine Transplant Adeline Frazier M.D., Ph.D. [address] [place] [address] [phone] (Wo rk) 01/28/2022 Office Visit Gastroenterology and Matthew Jerome, Hepatology M.B.B.S., M.D. [address] [place] [phone] (Wo rk) Pending Results Name Type Priority Associated Diagnoses Date/Ti me Prepare Red Blood Cells, 1 Blood Bank Routine 1 05/12/2020 12:59 PM Units PAN DUMPER Prepare Red Blood Cells, 1 Blood Bank Routine 1 05/12/2020 12:59 PM Units PAN DUMPER Prepare Red Blood Cells, 1 Blood Bank Routine 1 05/12/2020 12:59 PM Units PAN DUMPER Prepare Fresh Frozen Blood Bank Routine 12:06 PM Plasma : 2 Units PAN DUMPER Transfuse Fresh Frozen Blood Bank Routine 03/15 3:52 PM Plasma :Bleeding with PAN DUMPER altered coagulation; 180 mL/hr, 2 Units Prepare Red Blood Cells, 1 Blood Bank Routine 1 05/12/2020 12:59 PM Units PAN DUMPER Prepare Fresh Frozen Blood Bank Routine 2:05 AM Plasma : 1 Units PAN DUMPER Prepare Pooled Blood Bank Routine 03/16/2021 2: 05 AM Cryoprecipitate PAN DUMPER Prepare Red Blood Cells, 1 Blood Bank STAT 1 05/16/2020 5:44 AM Units PAN DUMPER Prepare Fresh Frozen Blood Bank STAT 5:44 AM Plasma : 2 Units PAN DUMPER Prepare Red Blood Cells, 2 Blood Bank STAT 1 05/16/2020 5:44 AM Units PAN DUMPER Prepare Red Blood Cells, 1 Blood Bank STAT 1 05/16/2020 5:44 AM Units PAN DUMPER Prepare Fresh Frozen Blood Bank STAT 5:44 AM Plasma : 1 Units PAN DUMPER Patient Status Lab Routine 03/20/2021 7: 40 AM PAN DUMPER Prepare Red Blood Cells, 1 Blood Bank Routine 1 05/23/2020 1:12 PM Units PAN DUMPER Scheduled Procedures Name Priority Associated Diagnoses Date/Time ESOPHAGOGASTRODUODENOSCOPY Cirrhosis Alc oholic (HCC) Hypertension Portal (HCC) ESOPHAGOGASTRODUODENOSCOPY Cirrhosis Alc oholic (HCC) Ascites Anemia Macrocytic Thrombocytopenia (HC C) Deficiency Coagulation Acquired (HCC) Scheduled Referrals Name Type Priority Associated Order Schedule Diagnoses Gastroenterology and Outpatient Routine Expecte d: Hepatology office visit Referral 03/03 (clinic) (Approximate), Expires: 03/15/2024 documented as of this encounter Procedures Procedure Name Priority Date/Time Associated Comments Diagnosis VITAMIN A AND VITAMIN Routine 03/24/2021 6:15 Res ults for E, S AM PAN DUMPER this procedure are in the results section. ZINC, S Routine 03/24/2021 6:15 Results for AM PAN DUMPER this procedure are in the results section. PROTHROMBIN TIME (PT), Routine 03/24/2021 6:15 Re sults for P AM PAN DUMPER this procedure are in the results section. CBC WITHOUT Routine 03/24/2021 6:15 Results for DIFFERENTIAL, B AM PAN DUMPER this procedu re are in the results section. COMPREHENSIVE Routine 03/24/2021 6:15 Results for METABOLIC PANEL, S/P AM PAN DUMPER this pr ocedure are in the results section. TRANSFUSE RED BLOOD Routine 03/23/2021 3:21 CELLS PM PAN DUMPER TESTING LOCATION Routine 03/23/2021 1:12 Results for PM PAN DUMPER this procedure are in the results section. PREPARE RED BLOOD Routine 03/23/2021 1:12 CELLS PM PAN DUMPER TYPE AND SCREEN Routine 03/23/2021 1:12 Results f or PM PAN DUMPER this procedure are in the results section. ADULT OXYGEN THERAPY Routine 03/23/2021 8:00 AM PAN DUMPER PULSE OXIMETRY, Routine 03/23/2021 8:00 CONTINUOUS AM PAN DUMPER PROTHROMBIN TIME (PT), Routine 03/23/2021 6:43 Re sults for P AM PAN DUMPER this procedure are in the results section. CBC WITHOUT Routine 03/23/2021 6:43 Results for DIFFERENTIAL, B AM PAN DUMPER this procedu re are in the results section. PHOSPHORUS Routine 03/23/2021 6:43 Results for (INORGANIC), S AM PAN DUMPER this procedur e are in the results section. MAGNESIUM, S Routine 03/23/2021 6:43 Results for AM PAN DUMPER this procedure are in the results section. COMPREHENSIVE Routine 03/23/2021 6:43 Results for METABOLIC PANEL, S/P AM PAN DUMPER this pr ocedure are in the results section. ADULT OXYGEN THERAPY Routine 03/22/2021 8:00 PM PAN DUMPER PULSE OXIMETRY, Routine 03/22/2021 8:00 CONTINUOUS PM PAN DUMPER LACTATE, B Routine 03/22/2021 8:38 Results for AM PAN DUMPER this procedure are in the results section. PROTHROMBIN TIME (PT), Routine 03/22/2021 8:38 Re sults for P AM PAN DUMPER this procedure are in the results section. CBC WITHOUT Routine 03/22/2021 8:38 Results for DIFFERENTIAL, B AM PAN DUMPER this procedu re are in the results section. AMMONIA Routine 03/22/2021 8:38 Results for AM PAN DUMPER this procedure are in the results section. COMPREHENSIVE Routine 03/22/2021 8:38 Results for METABOLIC PANEL, S/P AM PAN DUMPER this pr ocedure are in the results section. PHOSPHORUS Routine 03/22/2021 8:33 Results for (INORGANIC), S AM PAN DUMPER this procedur e are in the results section. MAGNESIUM, S Routine 03/22/2021 8:33 Results for AM PAN DUMPER this procedure are in the results section. ADULT OXYGEN THERAPY Routine 03/22/2021 8:00 AM PAN DUMPER PULSE OXIMETRY, Routine 03/22/2021 8:00 CONTINUOUS AM PAN DUMPER ADULT OXYGEN THERAPY Routine 03/21/2021 8:01 PM PAN DUMPER PULSE OXIMETRY, Routine 03/21/2021 8:01 CONTINUOUS PM PAN DUMPER EEG ROUTINE - AWAKE Routine 03/21/2021 4:43 Resul ts for AND SLEEP PM PAN DUMPER this procedure are in the results section. CT ABDOMEN PELVIS RAD - Routine 03/21/2021 Results f or WITHOUT IV CONTRAST (most inpatients 12:42 PM PAN DUMPER this procedure and all are in the outpatients) results section. CT HEAD WITHOUT IV RAD - Routine 03/21/2021 Results for CONTRAST (most inpatients 12:42 PM PAN DUMPER this proced ure and all are in the outpatients) results section. ECG Routine 03/21/2021 Results for 10:06 AM PAN DUMPER this procedure are in the results section. ADULT OXYGEN THERAPY Routine 03/21/2021 8:01 AM PAN DUMPER PULSE OXIMETRY, Routine 03/21/2021 8:01 CONTINUOUS AM PAN DUMPER COMPREHENSIVE Routine 03/21/2021 5:44 Results for METABOLIC PANEL, S/P AM PAN DUMPER this pr ocedure are in the results section. LACTATE, B Routine 03/21/2021 5:43 Results for AM PAN DUMPER this procedure are in the results section. PROTHROMBIN TIME (PT), Routine 03/21/2021 5:43 Re sults for P AM PAN DUMPER this procedure are in the results section. CBC WITHOUT Routine 03/21/2021 5:43 Results for DIFFERENTIAL, B AM PAN DUMPER this procedu re are in the results section. LACTATE, B Timed 03/20/2021 Results for 10:32 PM PAN DUMPER this procedure are in the results section. CBC WITH DIFFERENTIAL, Timed 03/20/2021 Resul ts for B 10:32 PM PAN DUMPER this procedure are in the results section. CREATINE KINASE (CK), Timed 03/20/2021 Result s for S 10:32 PM PAN DUMPER this procedure are in the results section. AMMONIA Timed 03/20/2021 Results for 10:32 PM PAN DUMPER this procedure are in the results section. COMPREHENSIVE Timed 03/20/2021 Results for METABOLIC PANEL, S/P 10:32 PM PAN DUMPER this pr ocedure are in the results section. GLUCOSE POCT, B Routine 03/20/2021 9:03 Results f or PM PAN DUMPER this procedure are in the results section. ADULT OXYGEN THERAPY Routine 03/20/2021 8:01 PM PAN DUMPER PULSE OXIMETRY, Routine 03/20/2021 8:01 CONTINUOUS PM PAN DUMPER ADULT OXYGEN THERAPY Routine 03/20/2021 8:01 AM PAN DUMPER PULSE OXIMETRY, Routine 03/20/2021 8:01 CONTINUOUS AM PAN DUMPER LACTATE, B Routine 03/20/2021 7:40 Results for AM PAN DUMPER this procedure are in the results section. PH BLOOD GAS Routine 03/20/2021 7:40 Results for AM PAN DUMPER this procedure are in the results section. PROTHROMBIN TIME (PT), Routine 03/20/2021 7:40 Re sults for P AM PAN DUMPER this procedure are in the results section. CBC WITHOUT Routine 03/20/2021 7:40 Results for DIFFERENTIAL, B AM PAN DUMPER this procedu re are in the results section. PHOSPHORUS Routine 03/20/2021 7:40 Results for (INORGANIC), S AM PAN DUMPER this procedur e are in the results section. MAGNESIUM, S Routine 03/20/2021 7:40 Results for AM PAN DUMPER this procedure are in the results section. VENOUS BLOOD GAS Routine 03/20/2021 7:40 Results for W/COOX, B AM PAN DUMPER this procedure are in the results section. CALCIUM, IONIZED, S/B Routine 03/20/2021 7:40 Res ults for AM PAN DUMPER this procedure are in the results section. COMPREHENSIVE Routine 03/20/2021 7:40 Results for METABOLIC PANEL, S/P AM PAN DUMPER this pr ocedure are in the results section. ADULT OXYGEN THERAPY Routine 03/19/2021 8:01 PM PAN DUMPER PULSE OXIMETRY, Routine 03/19/2021 8:01 CONTINUOUS PM PAN DUMPER TRANSFUSE FRESH FROZEN Routine 03/19/2021 5:08 PLASMA PM PAN DUMPER PH BLOOD GAS Routine 03/19/2021 3:04 Results for PM PAN DUMPER this procedure are in the results section. 25-HYDROXYVITAMIN D2 Routine 03/19/2021 3:04 Resu lts for AND D3, S PM PAN DUMPER this procedure are in the results section. POTASSIUM, S/P Timed 03/19/2021 3:04 Results fo r PM PAN DUMPER this procedure are in the results section. PARATHYROID HORMONE Routine 03/19/2021 3:04 Resul ts for (PTH), S PM PAN DUMPER this procedure are in the results section. CALCIUM, IONIZED, S/B Routine 03/19/2021 3:04 Res ults for PM PAN DUMPER this procedure are in the results section. TRANSFUSE RED BLOOD Routine 03/19/2021 CELLS 12:49 PM PAN DUMPER (TTE) 2D ECHO DOPPLER Routine 03/19/2021 Result s for COLOR AND CONTRAST 12:39 PM PAN DUMPER this proc edure are in the results section. ADULT OXYGEN THERAPY Routine 03/19/2021 8:01 AM PAN DUMPER PULSE OXIMETRY, Routine 03/19/2021 8:01 CONTINUOUS AM PAN DUMPER PROTHROMBIN TIME (PT), Routine 03/19/2021 7:39 Re sults for P AM PAN DUMPER this procedure are in the results section. CBC WITH DIFFERENTIAL, Routine 03/19/2021 7:39 Re sults for B AM PAN DUMPER this procedure are in the results section. PHOSPHORUS Routine 03/19/2021 7:39 Results for (INORGANIC), S AM PAN DUMPER this procedur e are in the results section. MAGNESIUM, S Routine 03/19/2021 7:39 Results for AM PAN DUMPER this procedure are in the results section. AMMONIA Routine 03/19/2021 7:39 Results for AM PAN DUMPER this procedure are in the results section. COMPREHENSIVE Routine 03/19/2021 7:39 Results for METABOLIC PANEL, S/P AM PAN DUMPER this pr ocedure are in the results section. BILIRUBIN DIRECT, S/P Routine 03/19/2021 7:38 Res ults for AM PAN DUMPER this procedure are in the results section. ECG Routine 03/19/2021 6:44 Results for AM PAN DUMPER this procedure are in the results section. ADULT OXYGEN THERAPY Routine 03/18/2021 8:01 PM [facility] PULSE OXIMETRY, Routine 03/18/2021 8:01 CONTINUOUS PM [facility] HEMOGLOBIN, B Routine 03/18/2021 7:00 Results for PM [facility] this procedure are in the results section. AMMONIA Routine 03/18/2021 6:59 Results for PM [facility] this procedure are in the results section. PROTHROMBIN TIME (PT), Routine 03/18/2021 8:35 Re sults for P AM [facility] this procedure are in the results section. CBC WITH DIFFERENTIAL, Routine 03/18/2021 8:35 Re sults for B AM [facility] this procedure are in the results section. COMPREHENSIVE Routine 03/18/2021 8:35 Results for METABOLIC PANEL, S/P AM [facility] this pr ocedure are in the results section. ADULT OXYGEN THERAPY Routine 03/18/2021 8:02 AM [facility] PULSE OXIMETRY, Routine 03/18/2021 8:02 CONTINUOUS AM [facility] ADULT OXYGEN THERAPY Routine 03/17/2021 8:01 PM [facility] PULSE OXIMETRY, Routine 03/17/2021 8:01 CONTINUOUS PM [facility] ADULT OXYGEN THERAPY Routine 03/17/2021 8:01 AM [facility] PULSE OXIMETRY, Routine 03/17/2021 8:01 CONTINUOUS AM [facility] CBC WITH DIFFERENTIAL, Routine 03/17/2021 6:35 Re sults for B AM [facility] this procedure are in the results section. MAGNESIUM, S Routine 03/17/2021 6:35 Results for AM [facility] this procedure are in the results section. BASIC METABOLIC PANEL, Routine 03/17/2021 6:35 Re sults for S/P AM [facility] this procedure are in the results section. ADULT OXYGEN THERAPY Routine 03/16/2021 8:00 PM [facility] PULSE OXIMETRY, Routine 03/16/2021 8:00 CONTINUOUS PM [facility] HEMOGLOBIN, B Timed 03/16/2021 4:14 Results for PM [facility] this procedure are in the results section. HEMATOCRIT, B Timed 03/16/2021 4:14 Results for PM [facility] this procedure are in the results section. HEMOGLOBIN, B STAT 03/16/2021 Results for 12:58 PM [facility] this procedure are in the results section. HEMATOCRIT, B STAT 03/16/2021 Results for 12:58 PM [facility] this procedure are in the results section. TRANSFUSE RED BLOOD Routine 03/16/2021 CELLS 11:13 AM [facility] TRANSFUSE RED BLOOD Routine 03/16/2021 CELLS 10:32 AM [facility] TRANSFUSE FRESH FROZEN Routine 03/16/2021 9:58 PLASMA AM [facility] TRANSFUSE FRESH FROZEN Routine 03/16/2021 9:20 PLASMA AM [facility] ADULT OXYGEN THERAPY Routine 03/16/2021 8:00 AM [facility] PULSE OXIMETRY, Routine 03/16/2021 8:00 CONTINUOUS AM [facility] TRANSFUSE RED BLOOD Routine 03/16/2021 7:35 CELLS AM [facility] ACTIVATED PARTIAL STAT 03/16/2021 7:32 Results for THROMBOPLASTIN TIME AM [facility] this pro cedure (APTT), P are in the results section. PROTHROMBIN TIME (PT), STAT 03/16/2021 7:32 Re sults for P AM [facility] this procedure are in the results section. FIBRINOGEN, P STAT 03/16/2021 7:32 Results for AM [facility] this procedure are in the results section. HEMOGLOBIN, B STAT 03/16/2021 7:31 Results for AM [facility] this procedure are in the results section. TESTING LOCATION STAT 03/16/2021 5:44 Results for AM [facility] this procedure are in the results section. PREPARE FRESH FROZEN STAT 03/16/2021 5:44 PLASMA AM [facility] PREPARE FRESH FROZEN STAT 03/16/2021 5:44 PLASMA AM [facility] PREPARE RED BLOOD STAT 03/16/2021 5:44 CELLS AM [facility] PREPARE RED BLOOD STAT 03/16/2021 5:44 CELLS AM [facility] PREPARE RED BLOOD STAT 03/16/2021 5:44 CELLS AM [facility] TYPE AND SCREEN STAT 03/16/2021 5:44 Results f or AM [facility] this procedure are in the results section. GLUCOSE POCT, B Routine 03/16/2021 5:43 Results f or AM [facility] this procedure are in the results section. PH BLOOD GAS Routine 03/16/2021 4:57 Results for AM [facility] this procedure are in the results section. CALCIUM, IONIZED, S/B Routine 03/16/2021 4:57 Res ults for AM [facility] this procedure are in the results section. CBC WITHOUT Timed 03/16/2021 4:21 Results for DIFFERENTIAL, B AM [facility] this procedu re are in the results section. PHOSPHORUS Timed 03/16/2021 4:21 Results for (INORGANIC), S AM [facility] this procedur e are in the results section. MAGNESIUM, S Timed 03/16/2021 4:21 Results for AM [facility] this procedure are in the results section. COMPREHENSIVE Timed 03/16/2021 4:21 Results for METABOLIC PANEL, S/P AM [facility] this pr ocedure are in the results section. TRANSFUSE FRESH FROZEN Routine 03/16/2021 3:30 PLASMA AM [facility] TRANSFUSE Routine 03/16/2021 3:18 CRYOPRECIPITATE AM [facility] TRANSFUSE Routine 03/16/2021 2:42 CRYOPRECIPITATE AM PAN [facility] CT ABDOMEN PELVIS WITH RAD - Routine 03/16/2021 2:36 R esults for IV CONTRAST (most inpatients AM [facility] this proced ure and all are in the outpatients) results section. TEST, POCT, Routine 03/16/2021 2:11 Res ults for U (LAB) AM [facility] this procedure are in the results section. PREPARE FRESH FROZEN Routine 03/16/2021 2:05 PLASMA AM [facility] PREPARE Routine 03/16/2021 2:05 CRYOPRECIPITATE AM [facility] ACTIVATED PARTIAL STAT 03/16/2021 1:11 Results for THROMBOPLASTIN TIME AM [facility] this pro cedure (APTT), P are in the results section. PROTHROMBIN TIME (PT), STAT 03/16/2021 1:11 Re sults for P AM [facility] this procedure are in the results section. FIBRINOGEN, P STAT 03/16/2021 1:11 Results for AM [facility] this procedure are in the results section. HEMOGLOBIN, B Timed 03/16/2021 Results for 12:08 AM [facility] this procedure are in the results section. POTASSIUM, S/P Routine 03/16/2021 Results for 12:08 AM [facility] this procedure are in the results section. GLUCOSE POCT, B Routine 03/15/2021 Results for 11:33 PM [facility] this procedure are in the results section. TRANSFUSE RED BLOOD Routine 03/15/2021 9:33 CELLS PM [facility] HEMOGLOBIN, B Timed 03/15/2021 8:11 Results for PM [facility] this procedure are in the results section. ADULT OXYGEN THERAPY Routine 03/15/2021 8:01 PM [facility] PULSE OXIMETRY, Routine 03/15/2021 8:01 CONTINUOUS PM [facility] HEMOGLOBIN, B Timed 03/15/2021 4:52 Results for PM [facility] this procedure are in the results section. HEMATOCRIT, B Timed 03/15/2021 4:52 Results for PM [facility] this procedure are in the results section. TRANSFUSE FRESH FROZEN Routine 03/15/2021 3:52 PLASMA PM [facility] HEMOGLOBIN, B Timed 03/15/2021 2:29 Results for PM [facility] this procedure are in the results section. HEMATOCRIT, B Timed 03/15/2021 2:29 Results for PM [facility] this procedure are in the results section. PHOSPHORUS Routine 03/15/2021 2:29 Results for (INORGANIC), S PM [facility] this procedur e are in the results section. MAGNESIUM, S Routine 03/15/2021 2:29 Results for PM [facility] this procedure are in the results section. BASIC METABOLIC PANEL, Timed 03/15/2021 2:29 Re sults for S/P PM [facility] this procedure are in the results section. RESPIRATORY ASSESS AND Routine 03/15/2021 2:00 TREAT PM [facility] TRANSFUSE FRESH FROZEN Routine 03/15/2021 1:47 PLASMA PM [facility] PREPARE FRESH FROZEN Routine 03/15/2021 PLASMA 12:06 PM [facility] GLUCOSE POCT, B Routine 03/15/2021 Results for 11:57 AM [facility] this procedure are in the results section. TRANSFUSE RED BLOOD Routine 03/15/2021 CELLS 11:00 AM [facility] ADULT OXYGEN THERAPY Routine 03/15/2021 8:01 AM [facility] PULSE OXIMETRY, Routine 03/15/2021 8:01 CONTINUOUS AM [facility] GLUCOSE POCT, B Routine 03/15/2021 6:14 Results f or AM [facility] this procedure are in the results section. PROTHROMBIN TIME (PT), Routine 03/15/2021 4:18 Re sults for P AM [facility] this procedure are in the results section. CBC WITHOUT Routine 03/15/2021 4:18 Results for DIFFERENTIAL, B AM [facility] this procedu re are in the results section. PHOSPHORUS Routine 03/15/2021 4:18 Results for (INORGANIC), S AM [facility] this procedur e are in the results section. MAGNESIUM, S Routine 03/15/2021 4:18 Results for AM [facility] this procedure are in the results section. COMPREHENSIVE Routine 03/15/2021 4:18 Results for METABOLIC PANEL, S/P AM [facility] this pr ocedure are in the results section. GLUCOSE POCT, B Routine 03/14/2021 Results for 11:43 PM [facility] this procedure are in the results section. ADULT OXYGEN THERAPY Routine 03/14/2021 8:01 PM [facility] PULSE OXIMETRY, Routine 03/14/2021 8:01 CONTINUOUS PM [facility] GLUCOSE POCT, B Routine 03/14/2021 6:25 Results f or PM [facility] this procedure are in the results section. RESPIRATORY ASSESS AND Routine 03/14/2021 2:00 TREAT PM [facility] GLUCOSE POCT, B Routine 03/14/2021 Results for 11:32 AM [facility] this procedure are in the results section. PATIENT STATUS STAT 03/14/2021 Results for 11:00 AM [facility] this procedure are in the results section. ABG W/COOX STAT 03/14/2021 Results for 11:00 AM [facility] this procedure are in the results section. PROTHROMBIN TIME (PT), Routine 03/14/2021 9:22 Re sults for P AM [facility] this procedure are in the results section. ADULT OXYGEN THERAPY Routine 03/14/2021 8:01 AM [facility] PULSE OXIMETRY, Routine 03/14/2021 8:01 CONTINUOUS AM [facility] GLUCOSE POCT, B Routine 03/14/2021 6:28 Results f or AM [facility] this procedure are in the results section. PATIENT STATUS Routine 03/14/2021 5:41 Results fo r AM [facility] this procedure are in the results section. PH BLOOD GAS Routine 03/14/2021 5:41 Results for AM [facility] this procedure are in the results section. ABG W/COOX Routine 03/14/2021 5:41 Results for AM [facility] this procedure are in the results section. CBC WITHOUT Routine 03/14/2021 5:41 Results for DIFFERENTIAL, B AM [facility] this procedu re are in the results section. PHOSPHORUS Routine 03/14/2021 5:41 Results for (INORGANIC), S AM [facility] this procedur e are in the results section. MAGNESIUM, S Routine 03/14/2021 5:41 Results for AM [facility] this procedure are in the results section. CALCIUM, IONIZED, S/B Routine 03/14/2021 5:41 Res ults for AM [facility] this procedure are in the results section. BASIC METABOLIC PANEL, Routine 03/14/2021 5:41 Re sults for S/P AM [facility] this procedure are in the results section. HEPATIC FUNCTION Routine 03/14/2021 5:40 Results for PANEL, S AM [facility] this procedure are in the results section. DX CHEST PORTABLE 1 RAD - Routine 03/14/2021 4:33 Resu lts for VIEW (most inpatients AM [facility] this proced ure and all are in the outpatients) results section. GLUCOSE POCT, B Routine 03/14/2021 Results for 12:06 AM [facility] this procedure are in the results section. ADULT OXYGEN THERAPY Routine 03/13/2021 8:01 PM [facility] PULSE OXIMETRY, Routine 03/13/2021 8:01 CONTINUOUS PM [facility] HEMOGLOBIN, B Routine 03/13/2021 6:29 Results for PM [facility] this procedure are in the results section. GLUCOSE POCT, B Routine 03/13/2021 6:16 Results f or PM [facility] this procedure are in the results section. HEMOGLOBIN, B Routine 03/13/2021 4:28 Results for PM [facility] this procedure are in the results section. MECHANICAL VENTILATOR Routine 03/13/2021 4:00 PM [facility] RESPIRATORY ASSESS AND Routine 03/13/2021 2:00 TREAT PM [facility] MECHANICAL VENTILATOR Routine 03/13/2021 12:00 PM [facility] GLUCOSE POCT, B Routine 03/13/2021 Results for 11:46 AM [facility] this procedure are in the results section. TRANSFUSE RED BLOOD Routine 03/13/2021 CELLS 10:11 AM [facility] IRON AND TOT Routine 03/13/2021 8:28 Results for IRON-BINDING CAPACITY, AM [facility] this procedure S/P are in the results section. FOLATE, S Routine 03/13/2021 8:28 Results for AM [facility] this procedure are in the results section. FERRITIN, S Routine 03/13/2021 8:28 Results for AM [facility] this procedure are in the results section. VITAMIN B12 ASSAY, S Routine 03/13/2021 8:28 Resu lts for AM [facility] this procedure are in the results section. ADULT OXYGEN THERAPY Routine 03/13/2021 8:01 AM [facility] PULSE OXIMETRY, Routine 03/13/2021 8:01 CONTINUOUS AM [facility] MECHANICAL VENTILATOR Routine 03/13/2021 8:01 AM [facility] PATIENT STATUS Routine 03/13/2021 5:37 Results fo r AM [facility] this procedure are in the results section. ABG W/COOX Routine 03/13/2021 5:37 Results for AM [facility] this procedure are in the results section. CBC WITH DIFFERENTIAL, Routine 03/13/2021 5:37 Re sults for B AM [facility] this procedure are in the results section. TRIGLYCERIDES, S Routine 03/13/2021 5:37 Results for AM [facility] this procedure are in the results section. PHOSPHORUS Routine 03/13/2021 5:37 Results for (INORGANIC), S AM [facility] this procedur e are in the results section. MAGNESIUM, S Routine 03/13/2021 5:37 Results for AM [facility] this procedure are in the results section. AMMONIA Routine 03/13/2021 5:37 Results for AM [facility] this procedure are in the results section. COMPREHENSIVE Routine 03/13/2021 5:37 Results for METABOLIC PANEL, S/P AM [facility] this pr ocedure are in the results section. DX CHEST PORTABLE 1 RAD - Routine 03/13/2021 4:32 Resu lts for VIEW (most inpatients AM [facility] this proced ure and all are in the outpatients) results section. MECHANICAL VENTILATOR Routine 03/13/2021 4:00 AM [facility] BASIC METABOLIC PANEL, Timed 03/13/2021 1:20 Re sults for S/P AM [facility] this procedure are in the results section. HEMOGLOBIN, B Timed 03/13/2021 Results for 12:11 AM [facility] this procedure are in the results section. MECHANICAL VENTILATOR Routine 03/13/2021 12:04 AM [facility] GLUCOSE POCT, B Routine 03/12/2021 Results for 11:44 PM [facility] this procedure are in the results section. ETHYL GLUCURONIDE SCRN Routine 03/12/2021 Resul ts for W/REFLEX, U 11:12 PM [facility] this procedure are in the results section. LDA ANE ENDOTRACHEAL Routine 03/12/2021 Change Mental Result s for AIRWAY 10:30 PM [facility] Status this procedure Cirrhosis are in the Alcoholic (HCC) results section. NV INTUB W ETT Routine 03/12/2021 Change Mental Results for 10:30 PM [facility] Status this procedure Cirrhosis are in the Alcoholic (HCC) results section. ADULT OXYGEN THERAPY Routine 03/12/2021 8:01 PM [facility] PULSE OXIMETRY, Routine 03/12/2021 8:01 CONTINUOUS PM [facility] MECHANICAL VENTILATOR Routine 03/12/2021 8:01 PM [facility] GLUCOSE POCT, B Routine 03/12/2021 6:11 Results f or PM [facility] this procedure are in the results section. NV PARACENTESIS ABD WO Routine 03/12/2021 6:02 Change Mental R esults for IMG PM [facility] Status this procedure Cirrhosis are in the Alcoholic (HCC) results section. THORACENTESIS Routine 03/12/2021 6:02 Change Mental Results fo r PM [facility] Status this procedure Cirrhosis are in the Alcoholic (HCC) results section. MC ANE CENTRAL LINE Routine 03/12/2021 6:02 Change Mental Resu lts for GENERIC PERFORMABLE PM [facility] Status this procedure Cirrhosis are in the Alcoholic (HCC) results section. LDA ANE CENTRAL LINE Routine 03/12/2021 6:02 Change Mental Res ults for TRIPLE LUMEN PM [facility] Status this procedure Cirrhosis are in the Alcoholic (HCC) results section. NV US GUIDE VASC Routine 03/12/2021 6:02 Change Mental Results for ACCESS PM [facility] Status this procedure Cirrhosis are in the Alcoholic (HCC) results section. NV INS NON-ALEN CVC Routine 03/12/2021 6:02 Change Mental Resul ts for >5YR PM [facility] Status this procedure Cirrhosis are in the Alcoholic (HCC) results section. PH BLOOD GAS STAT 03/12/2021 5:35 Results for PM [facility] this procedure are in the results section. HEMOGLOBIN, B STAT 03/12/2021 5:35 Results for PM [facility] this procedure are in the results section. PHOSPHORUS STAT 03/12/2021 5:35 Results for (INORGANIC), S PM [facility] this procedur e are in the results section. MAGNESIUM, S STAT 03/12/2021 5:35 Results for PM [facility] this procedure are in the results section. CALCIUM, IONIZED, S/B STAT 03/12/2021 5:35 Res ults for PM [facility] this procedure are in the results section. AMMONIA STAT 03/12/2021 5:35 Results for PM [facility] this procedure are in the results section. COMPREHENSIVE STAT 03/12/2021 5:35 Results for METABOLIC PANEL, S/P PM [facility] this pr ocedure are in the results section. TRANSFUSE RED BLOOD Routine 03/12/2021 4:08 CELLS PM [facility] MECHANICAL VENTILATOR Routine 03/12/2021 4:00 PM [facility] PROTEIN, TOTAL, BF Routine 03/12/2021 3:46 Result s for PM [facility] this procedure are in the results section. BACTERIAL CULTURE, Routine 03/12/2021 3:46 Result s for AEROBIC + SUSC PM [facility] this procedur e are in the results section. CELL COUNT AND Routine 03/12/2021 3:46 Results fo r DIFFERENTIAL, BF PM [facility] this proced ure are in the results section. GRAM STAIN Routine 03/12/2021 3:46 Results for PM [facility] this procedure are in the results section. BACTERIAL CULTURE, Routine 03/12/2021 3:46 Result s for ANAEROBIC + SUSC PM [facility] this proced ure are in the results section. ALBUMIN, BODY FLUID Routine 03/12/2021 3:46 Resul ts for PM [facility] this procedure are in the results section. AUTOIMMUNE LIVER Routine 03/12/2021 2:57 Results for DISEASE PANEL, S PM [facility] this proced ure are in the results section. [id number], S Routine 03/12/2021 2:57 Re sults for PM [facility] this procedure are in the results section. CERULOPLASMIN, S Routine 03/12/2021 2:57 Results for PM [facility] this procedure are in the results section. GLUCOSE POCT, B Routine 03/12/2021 2:06 Results f or PM [facility] this procedure are in the results section. RESPIRATORY ASSESS AND Routine 03/12/2021 2:[address] [facility] CT ABDOMEN PELVIS WITH RAD - Emergent 03/12/2021 1:50 Results for IV CONTRAST (Fastest; for the PM [facility] this proce dure most critically are in the ill patients) results section. CT CHEST WITH IV RAD - Emergent 03/12/2021 1:50 Result s for CONTRAST (Fastest; for the PM [facility] this proce dure most critically are in the ill patients) results section. CT HEAD WITHOUT IV RAD - Emergent 03/12/2021 1:49 Resu lts for CONTRAST (Fastest; for the PM [facility] this proce dure most critically are in the ill patients) results section. CYTOLOGY NON-HEAVY TRUCK TECHNICIAN Routine 03/12/2021 1:11 Results for PM [facility] this procedure are in the results section. ECG Routine 03/12/2021 1:01 Results for PM [facility] this procedure are in the results section. DX CHEST PORTABLE 1 RAD - Semiurgent 03/12/2021 1:00 R esults for VIEW (Fast; most ED PM [facility] this procedur e patients; some are in the inpatients) results section. TESTING LOCATION Routine 03/12/2021 Results for 12:59 PM [facility] this procedure are in the results section. LACTATE, B STAT 03/12/2021 Results for 12:59 PM [facility] this procedure are in the results section. PATIENT STATUS STAT 03/12/2021 Results for 12:59 PM [facility] this procedure are in the results section. ABG W/COOX STAT 03/12/2021 Results for 12:59 PM [facility] this procedure are in the results section. PREPARE RED BLOOD Routine 03/12/2021 CELLS 12:59 PM [facility] PREPARE RED BLOOD Routine 03/12/2021 CELLS 12:59 PM [facility] PREPARE RED BLOOD Routine 03/12/2021 CELLS 12:59 PM [facility] PREPARE RED BLOOD Routine 03/12/2021 CELLS 12:59 PM [facility] TYPE AND SCREEN Routine 03/12/2021 Results for 12:59 PM [facility] this procedure are in the results section. LACTATE DEHYDROGENASE Routine 03/12/2021 Result s for (LD), S 12:59 PM [facility] this procedure are in the results section. BILIRUBIN DIRECT, S/P Routine 03/12/2021 Result s for 12:59 PM [facility] this procedure are in the results section. CYTOLOGY NON-HEAVY TRUCK TECHNICIAN Routine 03/12/2021 Results for 12:39 PM [facility] this procedure are in the results section. PROTEIN, TOTAL, BF Routine 03/12/2021 Results f or 12:35 PM [facility] this procedure are in the results section. LACTATE DEHYDROGENASE Routine 03/12/2021 Result s for (LD), BF 12:35 PM [facility] this procedure are in the results section. BACTERIAL CULTURE, STAT 03/12/2021 Results f or AEROBIC + SUSC 12:34 PM [facility] this procedur e are in the results section. CELL COUNT AND STAT 03/12/2021 Results for DIFFERENTIAL, BF 12:34 PM [facility] this proced ure are in the results section. GRAM STAIN STAT 03/12/2021 Results for 12:34 PM [facility] this procedure are in the results section. BACTERIAL CULTURE, STAT 03/12/2021 Results f or ANAEROBIC + SUSC 12:34 PM [facility] this proced ure are in the results section. GLUCOSE, BODY FLUID STAT 03/12/2021 Results for 12:34 PM [facility] this procedure are in the results section. MECHANICAL VENTILATOR Routine 03/12/2021 12:00 PM [facility] ADULT OXYGEN THERAPY Routine 03/12/2021 11:32 AM [facility] ADULT OXYGEN THERAPY Routine 03/12/2021 11:32 AM [facility] ADULT OXYGEN THERAPY Routine 03/12/2021 11:32 AM [facility] MECHANICAL VENTILATOR Routine 03/12/2021 11:32 AM [facility] MECHANICAL VENTILATOR Routine 03/12/2021 11:32 AM [facility] MECHANICAL VENTILATOR Routine 03/12/2021 11:32 AM [facility] MECHANICAL VENTILATOR Routine 03/12/2021 11:32 AM [facility] MECHANICAL VENTILATOR Routine 03/12/2021 11:32 AM [facility] INFLUENZA A/B AND RSV, Routine 03/12/2021 Resul ts for PCR, VARIES 11:00 AM [facility] this procedure are in the results section. SARS CORONAVIRUS-2 Routine 03/12/2021 Results f or RNA, V 11:00 AM [facility] this procedure are in the results section. LDA ANE ARTERIAL LINE Routine 03/12/2021 Change Mental Resul ts for INSERTION 10:45 AM [facility] Status this procedure Cirrhosis are in the Alcoholic (HCC) results section. NV ARTL CATH/CNULA Routine 03/12/2021 Change Mental Results for MONITOR PERC 10:45 AM [facility] Status this procedure Cirrhosis are in the Alcoholic (HCC) results section. PULSE OXIMETRY, Routine 03/12/2021 8:02 CONTINUOUS AM [facility] LACTATE, B Timed 03/12/2021 7:10 Results for AM [facility] this procedure are in the results section. PATIENT STATUS STAT 03/12/2021 7:10 Results fo r AM [facility] this procedure are in the results section. ABG W/COOX STAT 03/12/2021 7:10 Results for AM [facility] this procedure are in the results section. BACTERIA / RAUDEL Routine 03/12/2021 7:10 Result s for CULTURE, BLOOD AM [facility] this procedur e are in the results section. DX CHEST PORTABLE 1 RAD - Semiurgent 03/12/2021 6:24 R esults for VIEW (Fast; most ED AM [facility] this procedur e patients; some are in the inpatients) results section. URINALYSIS WITH Routine 03/12/2021 6:23 Results f or MICROSCOPIC IF AM [facility] this procedur e INDICATED, U are in the results section. HC URINALYSIS AUTO WO Routine 03/12/2021 6:23 Res ults for MICRO AM [facility] this procedure are in the results section. DRUG SCREEN URINE Routine 03/12/2021 6:23 Results for AM [facility] this procedure are in the results section. NASAL SCREEN FOR MRSA Routine 03/12/2021 6:23 Res ults for BY RAPID PCR AM [facility] this procedure are in the results section. HCV AB W/REFLEX TO HCV Timed 03/12/2021 5:58 Re sults for PCR, S AM [facility] this procedure are in the results section. HEPATITIS A IGM AB Timed 03/12/2021 5:58 Result s for AM [facility] this procedure are in the results section. HEP B CORE AB, IGM Timed 03/12/2021 5:58 Result s for AM [facility] this procedure are in the results section. HEPATITIS B SURFACE Timed 03/12/2021 5:58 Resul ts for ANTIGEN AM [facility] this procedure are in the results section. AMMONIA Timed 03/12/2021 5:58 Results for AM [facility] this procedure are in the results section. LACTATE, B STAT 03/12/2021 5:57 Results for AM [facility] this procedure are in the results section. ETHANOL, S STAT 03/12/2021 5:57 Results for AM [facility] this procedure are in the results section. PH BLOOD GAS STAT 03/12/2021 5:57 Results for AM [facility] this procedure are in the results section. NT-PRO B-TYPE STAT 03/12/2021 5:57 Results for NATRIURETIC PEPTIDE AM [facility] this pro cedure (BNP), S are in the results section. BACTERIA / RAUDEL Routine 03/12/2021 5:57 Result s for CULTURE, BLOOD AM [facility] this procedur e are in the results section. PROTHROMBIN TIME (PT), STAT 03/12/2021 5:57 Re sults for P AM [facility] this procedure are in the results section. CBC WITHOUT STAT 03/12/2021 5:57 Results for DIFFERENTIAL, B AM [facility] this procedu re are in the results section. HUMAN CHORIONIC STAT 03/12/2021 5:57 Results f or GONADOTROPIN (HCG), AM [facility] this pro cedure EDDI, are in the results section. THYROID-STIMULATING STAT 03/12/2021 5:57 Resul ts for HORMONE-SENSITIVE AM [facility] this proce dure (S-TSH) are in the results section. PHOSPHORUS STAT 03/12/2021 5:57 Results for (INORGANIC), S AM PAN DUMPER this procedur e are in the results section. MAGNESIUM, S STAT 03/12/2021 5:57 Results for AM PAN DUMPER this procedure are in the results section. LIPASE, S/P STAT 03/12/2021 5:57 Results for AM PAN DUMPER this procedure are in the results section. CALCIUM, IONIZED, S/B STAT 03/12/2021 5:57 Res ults for AM PAN DUMPER this procedure are in the results section. ACETAMINOPHEN LEVEL, S STAT 03/12/2021 5:57 Re sults for AM PAN DUMPER this procedure are in the results section. SALICYLATE LEVEL, S STAT 03/12/2021 5:57 Resul ts for AM PAN DUMPER this procedure are in the results section. COMPREHENSIVE STAT 03/12/2021 5:57 Results for METABOLIC PANEL, S/P AM PAN DUMPER this pr ocedure are in the results section. GLUCOSE POCT, B Routine 03/12/2021 5:48 Results f or AM PAN DUMPER this procedure are in the results section. RESPIRATORY ASSESS AND Routine 03/12/2021 5:37 TREAT AM PAN DUMPER PULSE OXIMETRY, Routine 03/12/2021 5:37 CONTINUOUS AM PAN DUMPER PULSE OXIMETRY, Routine 03/12/2021 5:37 CONTINUOUS AM PAN DUMPER PULSE OXIMETRY, Routine 03/12/2021 5:37 CONTINUOUS AM PAN DUMPER documented in this encounter Results (ABNORMAL) Prothrombin Time (PT) (03/24/2021 6:15 AM PAN DUMPER) [facility] gist Method Time Signature Prothrombin 30.1 (H) 9.4 - 12.5 03/24/2021 MKTO Time, P sec 6:52 AM PAN DUMPER INR 2.7 0.9 - 1.1 03/24/2021 MKTO 6:52 AM PAN DUMPER Comment: ----ADDITIONAL INFORMATION---- Standard intensity warfarin therapeutic range: 2.0 to 3.0 ?? High intensity warfarin therapeutic rang e: 2.5 to 3.5 Specimen Anatomical Collection Method Collection Time Receive d Time (Source) Location / / Volume Laterality Blood (Blood, 03/24/2021 6:15 AM 03/24/20 6:21 Venous) PAN DUMPER AM PAN DUMPER Darian Thomas M.D., J.D. LAB BLOOD ADD-ON Performing Organization Address City/State/ZIP Code Phon e Number [facility]- [address] [place] [phone] [place] [address] [place] [address] System [place] [address] (ABNORMAL) Comprehensive Metabolic Panel (03/24/2021 6:15 AM PAN DUMPER) Analysis Performed At [facility] logist Time Signature Potassium, P 4.1 3.6 - 5.2 03/24/2021 MKTO mmol/L 6:54 AM PAN DUMPER Sodium, P 139 135 - 145 03/24/2021 MKTO mmol/L 6:54 AM PAN DUMPER Chloride, P 108 (H) 98 - 107 03/24/2021 MKTO mmol/L 6:54 AM PAN DUMPER Bicarbonate, P 18 (L) 22 - 29 03/24/2021 MKTO mmol/L 6:54 AM PAN DUMPER Anion Gap, P 13 7 - 15 03/24/2021 MKTO 6:54 AM PAN DUMPER BUN (Blood Urea 6 6 - 21 03/24/2021 MKTO Nitrogen), P mg/dL 6:54 AM PAN DUMPER Creatinine 0.35 (L) 0.59 - 03/24/2021 MKTO 1.04 mg/dL 6:54 AM PAN DUMPER eGFR-Black/Afri >90 >=60 03/24/2021 MKTO can Bahamian mL/min/BSA 6:54 AM PAN DUMPER Comment: ----ADDITIONAL INFORMATION---- Estimated GFR calculated using the 2009 CKD_EPI creatinine equation. eGFR Non-Black/ >90 >=60 mL/min/BSA 03/24/2021 6:54 AM PAN DUMPER MKTO Comment: ----ADDITIONAL INFORMATION---- Estimated GFR calculated using the 2009 CKD_EPI creatinine equation. Calcium, Total, P 10.3 (H) 8.6 - 10.0 mg/dL 03/24/2021 6:54 AM PAN DUMPER MKTO Glucose, P 120 70 - 140 mg/dL 03/24/2021 6:54 AM PAN DUMPER M KTO Protein, Total, P 6.5 6.3 - 7.9 g/dL 03/24/2021 6:54 A M PAN DUMPER MKTO Albumin, P 5.3 (H) 3.5 - 5.0 g/dL 03/24/2021 6:54 AM PAN DUMPER M KTO Aspartate Aminotransferase 46 (H) 8 - 43 U/L 03/24/2021 6 :54 AM PAN DUMPER MKTO (AST), P Alkaline Phosphatase, P 77 35 - 104 U/L 03/24/2021 6: 54 AM PAN DUMPER MKTO Alanine Aminotransferase 20 7 - 45 U/L 03/24/2021 6:5 4 AM PAN DUMPER MKTO (ALT), P Bilirubin, Total, P 7.8 (H) <=1.2 mg/dL 03/24/2021 6:54 AM PAN DUMPER MKTO Specimen Anatomical Collection Method Collection Time Receive d Time (Source) Location / / Volume Laterality Blood (Blood, 03/24/2021 6:15 AM 03/24/20 6:21 Venous) PAN DUMPER AM PAN DUMPER Darian Thomas M.D., J.D. LAB BLOOD ADD-ON Performing Organization Address City/State/ZIP Code Phon e Number [facility]- [address] [place] [phone] [place] [address] [place] [address] System in [address] (ABNORMAL) CBC without Differential (03/24/2021 6:15 AM PAN DUMPER) Patholo gist Method Time Signature Hemoglobin 8.7 (L) 11.6 - 03/24/2021 MKTO 15.0 g/dL 6:33 AM PAN DUMPER Hematocrit 26.3 (L) 35.5 - 03/24/2021 MKTO 44.9 % 6:33 AM PAN DUMPER Erythrocytes 2.80 (L) 3.92 - 03/24/2021 MKTO 5.13 6:33 AM PAN DUMPER x10(12)/L MCV 93.9 78.2 - 03/24/2021 MKTO 97.9 fL 6:33 AM PAN DUMPER RBC Distrib Width 21.7 (H) 12.2 - 03/24/2021 MKTO 16.1 % 6:33 AM PAN DUMPER Platelet Count 100 (L) 157 - 371 03/24/2021 MKTO x10(9)/L 6:33 AM PAN DUMPER Leukocytes 10.0 (H) 3.4 - 9.6 03/24/2021 MKTO x10(9)/L 6:33 AM PAN DUMPER Specimen Anatomical Collection Method Collection Time Receive d Time (Source) Location / / Volume Laterality Blood (Blood, 03/24/2021 6:15 AM 03/24/20 6:21 Venous) PAN DUMPER AM PAN DUMPER Darian Thomas M.D., J.D. LAB BLOOD ADD-ON Performing Organization Address City/State/ZIP Code Phon e Number [facility]- [facility] [place], [place] [phone] [place] [address] [place] [address] System in [place] [address] [place] [address] Zinc (03/24/2021 6:15 AM PAN DUMPER) P athologist Signature Zinc, S 0.66 0.66 - 1.10 03/25/2021 SDSC mcg/mL 10:45 AM PAN DUMPER Comment: ----ADDITIONAL INFORMATION---- This test was developed and its performa nce characteristics determined by [facility] in a manner consistent with CLIA requirements. This test has not been cleared or approved by the [place] and Drug Administration. Specimen Anatomical Collection Method Collection Time Receive d Time (Source) Location / / Volume Laterality Blood (Blood, 03/24/2021 6:15 AM 03/25/20 8:18 Venous) PAN DUMPER AM PAN DUMPER Darian Thomas M.D., J.D. LAB BLOOD NON ADD-ON Performing Organization Address City/[facility]/ZIP Code Phon e Number [address] CHAPPELL [place] [id number] [address] [place] [address] Laboratory Medicine and Pathology [address] [place] [address] Dr. CHAPPELL (ABNORMAL) Vitamin A and Vitamin E (03/24/2021 6:15 AM PAN DUMPER) athologist Signature Vitamin A <5.0 (L) 32.5 - 78.0 03/26/2021 [facility] mcg/dL 10:49 AM PAN DUMPER Comment: In this sample, the retinol (vitamin A) level indicates a severe deficiency. ----ADDITIONAL INFORMATION---- This test was developed and its performa nce characteristics determined by [facility] in a manner consistent with CLIA requirements. This test has not been cleared or approved by the [place] and Drug Administration. A-Tocopherol, Vitamin E 5.4 (L) 5.5 - 17.0 mg/L 03/27/2021 4:54 AM PAN DUMPER [facility] Specimen Anatomical Collection Method Collection Time Receive d Time (Source) Location / / Volume Laterality Blood (Blood, 03/24/2021 6:15 AM 03/25/20 3:48 Venous) PAN DUMPER PM PAN DUMPER Darian Thomas M.D., J.D. LAB BLOOD NON ADD-ON Performing Organization Address City/[facility] Phon e Number [address] [place] [phone] [address] [facility] [place] [address] Laboratory Medicine and Pathology [address] [place] [address] Dr. CHAPPELL Transfuse Red Blood Cells : (03/23/2021 5:52 PM PAN DUMPER) Darian Thomas M.D., J.D. BLOOD TRANSFUSION ORDERAB LES Transfuse Red Blood Cells : , 1 Units (03/23/2021 5:52 PM PAN DUMPER) Darian Thomas M.D., J.D. BLOOD TRANSFUSION ORDERAB LES Testing Location (03/23/2021 1:12 PM PAN DUMPER) athologist Signature Testing [facility] DEFAULT 03/23/2021 MKTO Location 1:22 PM PAN DUMPER Specimen Anatomical Collection Method Collection Time Receive d Time (Source) Location / / Volume Laterality Blood 03/23/2021 1:12 PM 1:21 PAN DUMPER PM PAN DUMPER Darian Thomas M.D., J.D. LAB BLOOD BANK TEST ORDER HARVEY Performing Organization Address [facility] Phon e Number [facility]- [facility] [place] [address] [place] [address] Type and Screen (with reflex Antibody ID) (03/23/2021 1:12 PM PAN DUMPER) Patholo gist Method Time Signature ABO Group B 03/23/2021 MKTO 2:01 PM PAN DUMPER Rh Type POS 03/23/2021 MKTO 2:01 PM PAN DUMPER Antibody Screen NEG 03/23/2021 MKTO 2:01 PM PAN DUMPER Type & Screen 03/26/2021 03/23/2021 MKTO Expiration 23:59 2:01 PM PAN DUMPER ELXM Eligible Y 03/23/2021 MKTO 2:01 PM PAN DUMPER Specimen Anatomical Collection Method Collection Time Receive d Time (Source) Location / / Volume Laterality Blood (Blood, 03/23/2021 1:12 PM 03/23/20 1:21 Venous) PAN DUMPER PM PAN DUMPER Darian Thomas M.D., J.D. LAB BLOOD BANK TEST ORDER HARVEY Performing Organization Address City/[facility] Phon e Number [facility]- [facility] [place] [address] [place] [address] (ABNORMAL) Phosphorus Inorganic (03/23/2021 6:43 AM PAN DUMPER) P athologist Signature Phosphorus 2.4 (L) 2.5 - 4.5 03/23/2021 MKTO (Inorganic), P mg/dL 7:40 AM PAN DUMPER Specimen Anatomical Collection Method Collection Time Receive d Time (Source) Location / / Volume Laterality Blood (Blood, 03/23/2021 6:43 AM 03/23/20 6:58 Venous) PAN DUMPER AM PAN DUMPER Darian Thomas M.D., J.D. LAB BLOOD ADD-ON Performing Organization Address City/[facility]/ZIP Code Phon e Number [facility]- [facility] [place] [address] [place] [address] System in [place] [address] [place] [address] Magnesium (03/23/2021 6:43 AM PAN DUMPER) P athologist Signature Magnesium, P 1.9 1.7 - 2.3 03/23/2021 MKTO mg/dL 7:40 AM PAN DUMPER Specimen Anatomical Collection Method Collection Time Receive d Time (Source) Location / / Volume Laterality Blood (Blood, 03/23/2021 6:43 AM 03/23/20 6:58 Venous) PAN DUMPER AM PAN DUMPER Darian Thomas M.D., J.D. LAB BLOOD ADD-ON Performing Organization Address [facility] Phon e Number [facility]- [address] [place] [phone] [place] [address] System in [place] [address] [place] [address] (ABNORMAL) Prothrombin Time (PT) (03/23/2021 6:43 AM PAN DUMPER) Patholo gist Method Time Signature Prothrombin 31.8 (H) 9.4 - 12.5 03/23/2021 MKTO Time, P sec 7:55 AM PAN DUMPER INR 2.8 0.9 - 1.1 03/23/2021 MKTO 7:55 AM PAN DUMPER Comment: ----ADDITIONAL INFORMATION---- Standard intensity warfarin therapeutic range: 2.0 to 3.0 ?? High intensity warfarin therapeutic rang e: 2.5 to 3.5 Specimen Anatomical Collection Method Collection Time Receive d Time (Source) Location / / Volume Laterality Blood (Blood, 03/23/2021 6:43 AM 03/23/20 6:58 Venous) PAN DUMPER AM PAN DUMPER Darian Thomas M.D., J.D. LAB BLOOD ADD-ON Performing Organization Address City/[facility]/ZIP [place] Phon e Number [facility]- [facility] [place] [address] [place] [address] System in [place] [address] [facility] (ABNORMAL) Comprehensive Metabolic Panel (03/23/2021 6:43 AM PAN DUMPER) Analysis Performed At Patho logist Time Signature Potassium, P 3.4 (L) 3.6 - 5.2 03/23/2021 MKTO mmol/L 7:40 AM PAN DUMPER Sodium, P 139 135 - 145 03/23/2021 MKTO mmol/L 7:40 AM PAN DUMPER Chloride, P 106 98 - 107 03/23/2021 MKTO mmol/L 7:40 AM PAN DUMPER Bicarbonate, P 19 (L) 22 - 29 03/23/2021 MKTO mmol/L 7:40 AM PAN DUMPER Anion Gap, P 14 7 - 15 03/23/2021 MKTO 7:40 AM PAN DUMPER BUN (Blood Urea 6 6 - 03/23/2021 MKTO Nitrogen), P mg/dL 7:40 AM PAN DUMPER Creatinine 0.37 (L) 0.59 - 03/23/2021 MKTO 1.04 mg/dL 7:40 AM PAN DUMPER eGFR-Black/Afri >90 >=60 03/23/2021 MKTO can Bahamian mL/min/BSA 7:40 AM PAN DUMPER Comment: ----ADDITIONAL INFORMATION---- Estimated GFR calculated using the 2009 CKD_EPI creatinine equation. eGFR Non-Black/ >90 >=60 mL/min/BSA 03/23/2021 7:40 AM PAN DUMPER MKTO Comment: ----ADDITIONAL INFORMATION---- Estimated GFR calculated using the 2009 CKD_EPI creatinine equation. Calcium, Total, P 10.3 (H) 8.6 - 10.0 mg/dL 03/23/2021 7:40 AM PAN DUMPER MKTO Glucose, P 152 (H) 70 - 140 mg/dL 03/23/2021 7:40 AM PAN DUMPER M KTO Protein, Total, P 6.3 6.3 - 7.9 g/dL 03/23/2021 7:40 A M PAN DUMPER MKTO Albumin, P 5.3 (H) 3.5 - 5.0 g/dL 03/23/2021 7:40 AM PAN DUMPER M KTO Aspartate Aminotransferase 51 (H) 8 - 43 U/L 03/23/2021 7 :40 AM PAN DUMPER MKTO (AST), P Alkaline Phosphatase, P 73 35 - 104 U/L 03/23/2021 7: 40 AM PAN DUMPER MKTO Alanine Aminotransferase 21 7 - 45 U/L 03/23/2021 7:4 0 AM PAN DUMPER MKTO (ALT), P Bilirubin, Total, P 6.1 (H) <=1.2 mg/dL 03/23/2021 7:40 AM PAN DUMPER MKTO Specimen Anatomical Collection Method Collection Time Receive d Time (Source) Location / / Volume Laterality Blood (Blood, 03/23/2021 6:43 AM 03/23/20 6:58 Venous) PAN DUMPER AM PAN DUMPER Darian Thomas M.D., J.D. LAB BLOOD ADD-ON Performing Organization Address City/State/ZIP Code Phon e Number [facility]- [address] [place] [phone] [place] [address] (ABNORMAL) CBC without Differential (03/23/2021 6:43 AM PAN DUMPER) [facility] gist Method Time Signature Hemoglobin 6.8 (L) 11.6 - 03/23/2021 MKTO 15.0 g/dL 7:45 AM PAN DUMPER Hematocrit 21.0 (L) 35.5 - 03/23/2021 MKTO 44.9 % 7:45 AM PAN DUMPER Erythrocytes 2.28 (L) 3.92 - 03/23/2021 MKTO 5.13 7:45 AM PAN DUMPER x10(12)/L MCV 92.1 78.2 - 03/23/2021 MKTO 97.9 fL 7:45 AM PAN DUMPER RBC Distrib Width 22.2 (H) 12.2 - 03/23/2021 MKTO 16.1 % 7:45 AM PAN DUMPER Platelet Count 98 (L) 157 - 371 03/23/2021 MKTO x10(9)/L 7:45 AM PAN DUMPER Leukocytes 9.2 3.4 - 9.6 03/23/2021 MKTO x10(9)/L 7:45 AM PAN DUMPER Specimen Anatomical Collection Method Collection Time Receive d Time (Source) Location / / Volume Laterality Blood (Blood, 03/23/2021 6:43 AM 03/23/20 6:58 Venous) PAN DUMPER AM PAN DUMPER Darian Thomas M.D., J.D. LAB BLOOD ADD-ON Performing Organization Address City/[facility] Phon e Number [address] [address] [place] [address] (ABNORMAL) Lactate, B (03/22/2021 8:38 AM PAN DUMPER) P athologist Signature Lactate, B 2.3 (H) 0.5 - 2.2 03/22/2021 MKTO mmol/L 8:58 AM PAN DUMPER Specimen Anatomical Collection Method Collection Time Receive d Time (Source) Location / / Volume Laterality Blood 03/22/2021 8:38 AM 8:50 PAN DUMPER AM PAN DUMPER Darian Thomas M.D., J.D. LAB BLOOD NON ADD-ON Performing Organization Address [facility] Phon e Number [address] [address] [place] [address] System [address] (ABNORMAL) Ammonia (03/22/2021 8:38 AM PAN DUMPER) P athologist Signature Ammonia, P 60 (H) <=51 03/22/2021 MKTO mcmol/L 9:11 AM PAN DUMPER Specimen Anatomical Collection Method Collection Time Receive d Time (Source) Location / / Volume Laterality Blood (Blood, 03/22/2021 8:38 AM 03/22/20 8:50 Venous) PAN DUMPER AM PAN DUMPER Darian Thomas M.D., J.D. LAB BLOOD NON ADD-ON Performing Organization Address City/[facility] Phon e Number [facility]- [address] [place] [phone] [facility] [place] [phone] (ABNORMAL) Prothrombin Time (PT) (03/22/2021 8:38 AM PAN DUMPER) Patholo gist Method Time Signature Prothrombin 30.5 (H) 9.4 - 12.5 03/22/2021 MKTO Time, P sec 9:24 AM PAN DUMPER INR 2.7 0.9 - 1.1 03/22/2021 MKTO 9:24 AM PAN DUMPER Comment: ----ADDITIONAL INFORMATION---- Standard intensity warfarin therapeutic range: 2.0 to 3.0 ?? High intensity warfarin therapeutic rang e: 2.5 to 3.5 Specimen Anatomical Collection Method Collection Time Receive d Time (Source) Location / / Volume Laterality Blood (Blood, 03/22/2021 8:38 AM 03/22/20 8:50 Venous) PAN DUMPER AM PAN DUMPER Darian Thomas M.D., J.D. LAB BLOOD ADD-ON Performing Organization Address City/State/ZIP Code Phon e Number [facility]- [address] [place] [phone] [facility] [place] [address] (ABNORMAL) Comprehensive Metabolic Panel (03/22/2021 8:38 AM PAN DUMPER) Analysis Performed At Patho logist Time Signature Potassium, P 3.4 (L) 3.6 - 5.2 03/22/2021 MKTO mmol/L 9:20 AM PAN DUMPER Sodium, P 139 135 - 145 03/22/2021 MKTO mmol/L 9:20 AM PAN DUMPER Chloride, P 105 98 - 107 03/22/2021 MKTO mmol/L 9:20 AM PAN DUMPER Bicarbonate, P 19 (L) 22 - 29 03/22/2021 MKTO mmol/L 9:20 AM PAN DUMPER Anion Gap, P 15 7 - 15 03/22/2021 MKTO 9:20 AM PAN DUMPER BUN (Blood Urea 6 6 - 21 03/22/2021 MKTO Nitrogen), P mg/dL 9:20 AM PAN DUMPER Creatinine 0.40 (L) 0.59 - 03/22/2021 MKTO 1.04 mg/dL 9:20 AM PAN DUMPER eGFR-Black/Afri >90 >=60 03/22/2021 MKTO can Bahamian mL/min/BSA 9:20 AM PAN DUMPER Comment: ----ADDITIONAL INFORMATION---- Estimated GFR calculated using the 2009 CKD_EPI creatinine equation. eGFR Non-Black/ >90 >=60 mL/min/BSA 03/22/2021 9:20 AM PAN DUMPER MKTO Comment: ----ADDITIONAL INFORMATION---- Estimated GFR calculated using the 2009 CKD_EPI creatinine equation. Calcium, Total, P 10.1 (H) 8.6 - 10.0 mg/dL 03/22/2021 9:20 AM PAN DUMPER MKTO Glucose, P 115 70 - 140 mg/dL 03/22/2021 9:20 AM PAN DUMPER M KTO Protein, Total, P 6.2 (L) 6.3 - 7.9 g/dL 03/22/2021 9:20 A M PAN DUMPER MKTO Albumin, P 5.2 (H) 3.5 - 5.0 g/dL 03/22/2021 9:20 AM PAN DUMPER M KTO Aspartate Aminotransferase 52 (H) 8 - 43 U/L 03/22/2021 9 :20 AM PAN DUMPER MKTO (AST), P Alkaline Phosphatase, P 59 35 - 104 U/L 03/22/2021 9: 20 AM PAN DUMPER MKTO Alanine Aminotransferase 20 7 - 45 U/L 03/22/2021 9:2 0 AM PAN DUMPER MKTO (ALT), P Bilirubin, Total, P 5.9 (H) <=1.2 mg/dL 03/22/2021 9:20 AM PAN DUMPER MKTO Specimen Anatomical Collection Method Collection Time Receive d Time (Source) Location / / Volume Laterality Blood (Blood, 03/22/2021 8:38 AM 03/22/20 8:50 Venous) PAN DUMPER AM PAN DUMPER Darian Thomas M.D., J.D. LAB BLOOD ADD-ON Performing Organization Address City/State/ZIP Code Phon e Number [facility]- [address] [place] [phone] [place] [address] (ABNORMAL) CBC without Differential (03/22/2021 8:38 AM PAN DUMPER) [facility] gist Method Time Signature Hemoglobin 7.2 (L) 11.6 - 03/22/2021 MKTO 15.0 g/dL 9:11 AM PAN DUMPER Hematocrit 22.6 (L) 35.5 - 03/22/2021 MKTO 44.9 % 9:11 AM PAN DUMPER Erythrocytes 2.39 (L) 3.92 - 03/22/2021 MKTO 5.13 9:11 AM PAN DUMPER x10(12)/L MCV 94.6 78.2 - 03/22/2021 MKTO 97.9 fL 9:11 AM PAN DUMPER RBC Distrib Width 21.6 (H) 12.2 - 03/22/2021 MKTO 16.1 % 9:11 AM PAN DUMPER Platelet Count 98 (L) 157 - 371 03/22/2021 MKTO x10(9)/L 9:11 AM PAN DUMPER Leukocytes 9.0 3.4 - 9.6 03/22/2021 MKTO x10(9)/L 9:11 AM PAN DUMPER Specimen Anatomical Collection Method Collection Time Receive d Time (Source) Location / / Volume Laterality Blood (Blood, 03/22/2021 8:38 AM 03/22/20 8:50 Venous) PAN DUMPER AM PAN DUMPER Darian Thomas M.D., J.D. LAB BLOOD ADD-ON Performing Organization Address City/[facility] Phon e Number [address] [address] [place] [address] Phosphorus Inorganic (03/22/2021 8:33 AM PAN DUMPER) P athologist Signature Phosphorus 2.7 2.5 - 4.5 03/22/2021 MKTO (Inorganic), P mg/dL 2:17 PM PAN DUMPER Specimen Anatomical Collection Method Collection Time Receive d Time (Source) Location / / Volume Laterality Blood (Blood, 03/22/2021 8:33 AM 03/22/20 2:07 Venous) PAN DUMPER PM PAN DUMPER Darian Thomas M.D., J.D. LAB BLOOD ADD-ON Performing Organization Address City/[facility] Phon e Number [address] [address] [facility] [place] [address] (ABNORMAL) Magnesium (03/22/2021 8:33 AM PAN DUMPER) P athologist Signature Magnesium, P 1.6 (L) 1.7 - 2.3 03/22/2021 MKTO mg/dL 2:17 PM PAN DUMPER Specimen Anatomical Collection Method Collection Time Receive d Time (Source) Location / / Volume Laterality Blood (Blood, 03/22/2021 8:33 AM 03/22/20 21 2:07 Venous) PAN DUMPER PM PAN DUMPER Darian Thomas M.D., J.D. LAB BLOOD ADD-ON Performing Organization Address City/State/ZIP Code Phon e Number [facility]- [address] [place] [phone] [facility] [place] [address] System in [place] [address] [place] [address] EEG ROUTINE (03/21/2021 4:43 PM PAN DUMPER) Specimen (Source) Anatomical Location Collection Method / Collectio n Time Received Time / Laterality Volume Narrative MMODAL - 03/21/2021 5:13 PM PAN DUMPER Clinical Interpretation: The short-term video EEG shows some mild diffuse nonspecific slowing of the background. ? ?No potentially epileptogenic activity was present during the awake or sleep recordings. Classification: SPECIAL STUDY - Short-te rm video EEG. Dysrhythmia grade 1 generalized. Sleep - no activation. EKG channel. Report: The short-term video EEG recordi ng during wakefulness contains 7 Hz alpha activity over the posterior hea d regions.. No abnormal activity occurred during photic stimulation. During the recording, the patient fell a sleep spontaneously. ??No abnormal activity occurred during sleep or at the time of arousal. The EKG channel was unremarkable. Jean Paul M.D. NEUROLOGY ORDERABLES Performing Organization Address City/[facility]/ZIP [place] Phon e Number MMODAL MMODAL NA CT Abdomen Pelvis without IV Contrast (03/21/2021 12:42 PM PAN DUMPER) Anatomical Region Laterality Modality Abdomen, Pelvis, Abdominal RST LOS, Abdominal ARZ LOS, N/A Computed Tomography Abdominal FLA LOS Specimen (Source) Anatomical Collection Method Collection Time Re ceived Time Location / / Volume Laterality 03/21/2021 1:09 PM PAN DUMPER Impressions 03/21/2021 1:19 PM PAN DUMPER 1. Slight interval DECREASE in abdominal ascites, however attenuation values have slightly increased, and are indeter minate, raising the possibility that there is blood within this free peritone al fluid. Consider paracentesis 2. No CT evidence for retroperitoneal he morrhage. Narrative 03/21/2021 1:19 PM PAN DUMPER EXAM: CT ABDOMEN PELVIS WITHOUT IV CONTRAST COMPARISON: 02/09/2021 FINDINGS: Lung bases: Small right pleural effusion , with associated atelectasis. No acute airspace disease in the bilateral bases. Liver: No significant abnormality identi fied. Gallbladder: No evidence of cholelithias is or biliary dilatation. Spleen: Splenomegaly, stable. Pancreas: No significant abnormality. Adrenal glands: No focal lesion identifi ed. Kidneys and Ureters: No evidence of hydr onephrosis. No renal calculi. No mass lesion is identified. No hydroureter or ureteral calculi. Bladder: Normal distention. No focal mas s lesion or wall thickening. GI tract: There is no small bowel or col on obstruction or pneumatosis demonstrated. There is no CT evidence for retroperiton eal hemorrhage. There is a decreasing amount of low atte nuating fluid throughout the abdomen and pelvis, that has an intermediate attenua tion (12 Hounsfield units) associated with it. No free peritoneal air, fluid c ollection or abscess. IUD within the uterine lumen Procedure Note Davy Whittington M.D. - 03/21/2021Form atting of this note might be different from the original. EXAM: CT ABDOMEN PELVIS WITHOUT IV CONTR AST COMPARISON: 02/09/2021 FINDINGS: Lung bases: Small right pleural effusion , with associated atelectasis. No acute airspace disease in the bilateral bases. Liver: No significant abnormality identi fied. Gallbladder: No evidence of cholelithias is or biliary dilatation. Spleen: Splenomegaly, stable. Pancreas: No significant abnormality. Adrenal glands: No focal lesion identifi ed. Kidneys and Ureters: No evidence of hydr onephrosis. No renal calculi. No mass lesion is identified. No hydroureter or ureteral calculi. Bladder: Normal distention. No focal mas s lesion or wall thickening. GI tract: There is no small bowel or col on obstruction or pneumatosis demonstrated. There is no CT evidence for retroperiton eal hemorrhage. There is a decreasing amount of low atte nuating fluid throughout the abdomen and pelvis, that has an intermediate attenua tion (12 Hounsfield units) associated with it. No free peritoneal air, fluid c ollection or abscess. IUD within the uterine lumen IMPRESSION: 1. Slight interval DECREASE in abdominal ascites, however attenuation values have slightly increased, and are indeter minate, raising the possibility that there is blood within this free peritone al fluid. Consider paracentesis 2. No CT evidence for retroperitoneal he morrhage. Darian Thomas M.D., J.D. IMG CT PROCEDURES CT Head without IV Contrast (03/21/2021 12:42 PM PAN DUMPER) Anatomical Region Laterality Modality Head, Neuroradiology RST LOS, Neuroradiology ARZ LOS, N/A Computed Tomography Neuroradiology FLA LOS Specimen (Source) Anatomical Collection Method Collection Time Re ceived Time Location / / Volume Laterality 03/21/2021 1:08 PM PAN DUMPER Impressions 03/21/2021 1:09 PM PAN DUMPER No acute intracranial pathology Narrative 03/21/2021 1:09 PM PAN DUMPER EXAM: CT HEAD WITHOUT IV CONTRAST COMPARISON: 03/12/2021 FINDINGS: There is no intra-axial or ext ra-axial fluid collection, or midline shift. The ventricles and extra-axial co mpartments are symmetric and normal in appearance. The aguilar-white interface is normal. The visualized paranasal sinuses and mastoid air cells are clear. No skul l fractures Procedure Note Davy Whittington M.D. - 03/21/2021Form atting of this note might be different from the original. EXAM: CT HEAD WITHOUT IV CONTRAST COMPARISON: 03/12/2021 FINDINGS: There is no intra-axial or ext ra-axial fluid collection, or midline shift. The ventricles and extra-axial co mpartments are symmetric and normal in appearance. The aguilar-white interface is normal. The visualized paranasal sinuses and mastoid air cells are clear. No skul l fractures IMPRESSION: No acute intracranial pathology Jean Paul M.D. IMG CT PROCEDURES ECG 12 Lead (03/21/2021 10:06 AM PAN DUMPER) P athologist Signature Ventricular Rate 92 BPM MUSE ECG/Min NV Interval 148 ms MUSE QRSD Interval 82 ms MUSE QT Interval 342 ms MUSE QTC Interval 422 ms MUSE P [place] 0 degrees MUSE R [place] 58 degrees MUSE T Wave [place] 12 degrees MUSE Specimen Anatomical Collection Method Collection Time Receive d Time (Source) Location / / Volume Laterality 03/21/2021 10:06 03/21/2021 AM PAN DUMPER 10:09 AM PAN DUMPER Impressions MUSE - 03/21/2021 10:10 AM PAN DUMPER Normal sinus rhythm Nonspecific T wave abnormality When compared with ECG of 19-MAR-2021 06 :44, No significant change was found Reviewed by STERLING Garrison Narrative This result has an attachment that is no t available. Procedure Note Isaak Cleaning M.D. - 03/21/2021Forma tting of this note might be different from the original. IMPRESSION: Normal sinus rhythm Nonspecific T wave abnormality When compared with ECG of 19-MAR-2021 06 :44, No significant change was found Reviewed by STERLING Garrison Keerthi Guzman M.D. ECG ORDERABLES Performing Organization Address City/State/ZIP Code Phon e Number MUSE MUSE NA (ABNORMAL) Comprehensive Metabolic Panel (03/21/2021 5:44 AM PAN DUMPER) Analysis Performed At Patho logist Time Signature Potassium, P 3.8 3.6 - 5.2 03/21/2021 [facility] mmol/L 6:33 AM PAN DUMPER Sodium, P 141 135 - 145 03/21/2021 [facility] mmol/L 6:33 AM PAN DUMPER Chloride, P 108 (H) 98 - 107 03/21/2021 [facility] mmol/L 6:33 AM PAN DUMPER Bicarbonate, P 19 (L) 22 - 29 03/21/2021 [facility] mmol/L 6:33 AM PAN DUMPER Anion Gap, P 14 7 - 15 03/21/2021 [facility] 6:33 AM PAN DUMPER BUN (Blood Urea 4 (L) 6 - 21 03/21/2021 [facility] Nitrogen), P mg/dL 6:33 AM PAN DUMPER Creatinine 0.38 (L) 0.59 - 03/21/2021 [facility] 1.04 mg/dL 6:33 AM PAN DUMPER eGFR-Black/Afri >90 >=60 03/21/2021 [facility] can Bahamian mL/min/BSA 6:33 AM PAN DUMPER Comment: ----ADDITIONAL INFORMATION---- Estimated GFR calculated using the 2009 CKD_EPI creatinine equation. eGFR Non-Black/ >90 >=60 mL/min/BSA 03/21/2021 6:33 AM PAN DUMPER [facility] Comment: ----ADDITIONAL INFORMATION---- Estimated GFR calculated using the 2009 CKD_EPI creatinine equation. Calcium, Total, P 10.3 (H) 8.6 - 10.0 mg/dL 03/21/2021 6:33 AM [facility] PAN DUMPER Glucose, P 104 70 - 140 mg/dL 03/21/2021 6:33 AM [facility] PAN DUMPER Protein, Total, P 6.2 (L) 6.3 - 7.9 g/dL 03/21/2021 6:33 A M [facility] PAN DUMPER Albumin, P 5.2 (H) 3.5 - 5.0 g/dL 03/21/2021 6:33 AM [facility] PAN DUMPER Aspartate Aminotransferase SEE COMMENT 8 - 43 U/L 03/21/2021 6:43 AM [facility] (AST), P PAN DUMPER Comment: Specimen was hemolyzed. Alkaline Phosphatase, P 52 35 - 104 U/L 03/21/2021 6: 33 AM PAN DUMPER [facility] Alanine Aminotransferase (ALT), 19 7 - 45 U/L 021 6:33 AM PAN DUMPER [facility] P Bilirubin, Total, P 5.8 (H) <=1.2 mg/dL 03/21/2021 6:33 AM PAN DUMPER [facility] Specimen Anatomical Collection Method Collection Time Receive d Time (Source) Location / / Volume Laterality Blood (Blood, 03/21/2021 5:44 AM 03/21/20 5:50 Venous) PAN DUMPER AM PAN DUMPER Darian Thomas M.D., J.D. LAB BLOOD ADD-ON Performing Organization Address City/[facility] Phon e Number [address] [phone] [place] [address] [facility] in [place] [address] [facility] Lactate, B (03/21/2021 5:43 AM PAN DUMPER) P athologist Signature Lactate, B 1.7 0.5 - 2.2 03/21/2021 [facility] mmol/L 5:56 AM PAN DUMPER Specimen Anatomical Collection Method Collection Time Receive d Time (Source) Location / / Volume Laterality Blood 03/21/2021 5:43 AM 5:50 PAN DUMPER AM PAN DUMPER Alka Cordero P.A.-C., M.S. LAB BLOOD NON ADD-ON Performing Organization Address City/State/ZIP [place] Phon e Number [facility]- [address] [place] [phone] [place] [address] (ABNORMAL) CBC without Differential (03/21/2021 5:43 AM PAN DUMPER) [facility] Method Time Signature Hemoglobin 7.0 (L) 11.6 - 03/21/2021 [facility] 15.0 g/dL 6:09 AM PAN DUMPER Hematocrit 21.2 (L) 35.5 - 03/21/2021 [facility] 44.9 % 6:09 AM PAN DUMPER Erythrocytes 2.35 (L) 3.92 - 03/21/2021 [facility] 5.13 6:09 AM PAN DUMPER x10(12)/L MCV 90.2 78.2 - 03/21/2021 [facility] 97.9 fL 6:09 AM PAN DUMPER RBC Distrib Width 21.1 (H) 12.2 - 03/21/2021 [facility] 16.1 % 6:09 AM PAN DUMPER Platelet Count 91 (L) 157 - 371 03/21/2021 [facility] x10(9)/L 6:09 AM PAN DUMPER Leukocytes 7.8 3.4 - 9.6 03/21/2021 [facility] x10(9)/L 6:09 AM PAN DUMPER Specimen Anatomical Collection Method Collection Time Receive d Time (Source) Location / / Volume Laterality Blood (Blood, 03/21/2021 5:43 AM 03/21/20 5:50 Venous) PAN DUMPER AM PAN DUMPER Dairan Thomas M.D., Dhara LAB BLOOD ADD-ON Performing Organization Address City/State/ZIP Code Phon e Number [facility]- [address] [place] [phone] [place] [address] (ABNORMAL) Prothrombin Time (PT) (03/21/2021 5:43 AM PAN DUMPER) [facility] Method Time Signature Prothrombin 29.0 (H) 9.4 - 12.5 03/21/2021 [facility] Time, P sec 6:02 AM PAN DUMPER INR 2.6 0.9 - 1.1 03/21/2021 [facility] 6:02 AM PAN DUMPER Comment: ----ADDITIONAL INFORMATION---- Standard intensity warfarin therapeutic range: 2.0 to 3.0 ?? High intensity warfarin therapeutic rang e: 2.5 to 3.5 Specimen Anatomical Collection Method Collection Time Receive d Time (Source) Location / / Volume Laterality Blood (Blood, 03/21/2021 5:43 AM 03/21/20 5:50 Venous) PAN DUMPER AM PAN DUMPER Keerthi Guzman M.D. LAB BLOOD ADD-ON Performing Organization Address [facility] Phon e Number [facility]- [address] [place] [address] [place] [address] [address] (ABNORMAL) Lactate, B (03/20/2021 10:32 PM PAN DUMPER) P athologist Signature Lactate, B 4.1 (H) 0.5 - 2.2 03/20/2021 [facility] mmol/L 10:44 PM PAN DUMPER Specimen Anatomical Collection Method Collection Time Receive d Time (Source) Location / / Volume Laterality Blood 03/20/2021 10:32 03/20/2021 PM PAN DUMPER 10:39 PM PAN DUMPER Alka Cordero P.A.-C. MSumaSSuma LAB BLOOD NON ADD-ON Performing Organization Address City/[facility] Phon e Number [facility]- [address] [place] [address] (ABNORMAL) Comprehensive Metabolic Panel (03/20/2021 10:32 PM PAN DUMPER) Analysis Performed At Patho logist Time Signature Potassium, P 3.6 3.6 - 5.2 03/20/2021 [facility] mmol/L 11:16 PM PAN DUMPER Sodium, P 141 135 - 145 03/20/2021 [facility] mmol/L 11:16 PM PAN DUMPER Chloride, P 107 98 - 107 03/20/2021 [facility] mmol/L 11:16 PM PAN DUMPER Bicarbonate, P 17 (L) 22 - 29 03/20/2021 [facility] mmol/L 11:16 PM PAN DUMPER Anion Gap, P 17 (H) 7 - 15 03/20/2021 [facility] 11:16 PM PAN DUMPER BUN (Blood Urea 4 (L) 6 - 21 03/20/2021 [facility] Nitrogen), P mg/dL 11:16 PM PAN DUMPER Creatinine 0.43 (L) 0.59 - 03/20/2021 [facility] 1.04 mg/dL 11:16 PM PAN DUMPER eGFR-Black/Afri >90 >=60 03/20/2021 [facility] can Bahamian mL/min/BSA 11:16 PM PAN DUMPER Comment: ----ADDITIONAL INFORMATION---- Estimated GFR calculated using the 2009 CKD_EPI creatinine equation. eGFR Non-Black/ >90 >=60 mL/min/BSA 03/20/2021 11:16 PM PAN DUMPER [facility] Comment: ----ADDITIONAL INFORMATION---- Estimated GFR calculated using the 2009 CKD_EPI creatinine equation. Calcium, Total, P 10.6 (H) 8.6 - 10.0 mg/dL 03/20/2021 11:1 6 PM [facility] PAN DUMPER Glucose, P 117 70 - 140 mg/dL 03/20/2021 11:16 PM [facility] PAN DUMPER Protein, Total, P 6.8 6.3 - 7.9 g/dL 03/20/2021 11:16 PM [facility] PAN DUMPER Albumin, P 5.6 (H) 3.5 - 5.0 g/dL 03/20/2021 11:16 PM [facility] PAN DUMPER Aspartate Aminotransferase 56 (H) 8 - 43 U/L 03/20/2021 1 1:16 PM [facility] (AST), P PAN DUMPER Alkaline Phosphatase, P 59 35 - 104 U/L 03/20/2021 11 :16 PM [facility] PAN DUMPER Alanine Aminotransferase 21 7 - 45 U/L 03/20/2021 11: 16 PM [facility] (ALT), P PAN DUMPER Bilirubin, Total, P 6.0 (H) <=1.2 mg/dL 03/20/2021 11:16 P M MK[facility] PAN DUMPER Specimen Anatomical Collection Method Collection Time Receive d Time (Source) Location / / Volume Laterality Blood (Blood, 03/20/2021 10:32 03/20/2021 Venous) PM PAN DUMPER 10:39 PM PAN DUMPER Alka Cordero P.A.-C. M.S. LAB BLOOD ADD-ON Performing Organization Address City/State/ZIP Code Phon e Number [facility]- [address] [place] [phone] [place] [address] [address] (ABNORMAL) Ammonia (03/20/2021 10:32 PM PAN DUMPER) P athologist Signature Ammonia, P 63 (H) <=51 03/20/2021 [facility] mcmol/L 11:02 PM PAN DUMPER Specimen Anatomical Collection Method Collection Time Receive d Time (Source) Location / / Volume Laterality Blood (Blood, 03/20/2021 10:32 03/20/2021 Venous) PM PAN DUMPER 10:38 PM PAN DUMPER Alka Cordero P.A.-C., M.S. LAB BLOOD NON ADD-ON Performing Organization Address City/[facility] Phon e Number [facility]- [address] [place] [phone] [place] [address] CK (Creatine Kinase) (03/20/2021 10:32 PM PAN DUMPER) P athologist Signature Creatine 40 26 - 192 03/20/2021 [facility] Kinase, P U/L 11:16 PM PAN DUMPER Specimen Anatomical Collection Method Collection Time Receive d Time (Source) Location / / Volume Laterality Blood (Blood, 03/20/2021 10:32 03/20/2021 Venous) PM PAN DUMPER 10:39 PM PAN DUMPER Alka Cordero P.A.-C., M.S. LAB BLOOD ADD-ON Performing Organization Address City/[facility] Phon e Number [facility]- [address] [place] [phone] [place] [address] (ABNORMAL) CBC with Differential, Blood (03/20/2021 10:32 PM PAN DUMPER) Patholo gist Method Time Signature Hemoglobin 7.5 (L) 11.6 - 03/20/2021 [facility] 15.0 g/dL 10:43 PM PAN DUMPER Hematocrit 22.5 (L) 35.5 - 03/20/2021 [facility] 44.9 % 10:43 PM PAN DUMPER Erythrocytes 2.44 (L) 3.92 - 03/20/2021 [facility] 5.13 10:43 PM PAN DUMPER x10(12)/L MCV 92.2 78.2 - 03/20/2021 [facility] 97.9 fL 10:43 PM PAN DUMPER RBC Distrib Width 20.9 (H) 12.2 - 03/20/2021 [facility] 16.1 % 10:43 PM PAN DUMPER Platelet Count 84 (L) 157 - 371 03/20/2021 [facility] x10(9)/L 10:43 PM PAN DUMPER Leukocytes 8.4 3.4 - 9.6 03/20/2021 [facility] x10(9)/L 10:43 PM PAN DUMPER Neutrophils 6.38 1.56 - 03/20/2021 [facility] 6.45 10:43 PM PAN DUMPER x10(9)/L Lymphocytes 1.10 0.95 - 03/20/2021 [facility] 3.07 10:43 PM PAN DUMPER x10(9)/L Monocytes 0.75 0.26 - 03/20/2021 [facility] 0.81 10:43 PM PAN DUMPER x10(9)/L Eosinophils 0.10 0.03 - 03/20/2021 [facility] 0.48 10:43 PM PAN DUMPER x10(9)/L Basophils <0.03 0.01 - 03/20/2021 [facility] 0.08 10:43 PM PAN DUMPER x10(9)/L Specimen Anatomical Collection Method Collection Time Receive d Time (Source) Location / / Volume Laterality Blood (Blood, 03/20/2021 10:32 03/20/2021 Venous) PM PAN DUMPER 10:39 PM PAN DUMPER Alka Cordero P.A.-C., MSumaS. LAB BLOOD ADD-ON Performing Organization Address City/State/ZIP Code Phon e Number [facility]- [address] [place] [phone] [place] [address] Glucose, POCT (03/20/2021 9:03 PM PAN DUMPER) athologist Signature Glucose, POCT, 131 70 - 140 03/20/2021 [facility] B mg/dL 9:03 PM PAN DUMPER Specimen Anatomical Collection Method Collection Time Receive d Time (Source) Location / / Volume Laterality Blood 03/20/2021 9:03 PM 9:11 PAN DUMPER PM PAN DUMPER Generic Rals LAB POCT ORDERABLES-MANUAL Performing Organization Address [facility] Phon e Number [facility]- [address] [place] [phone] [place] [address] Phosphorus Inorganic (03/20/2021 7:40 AM PAN DUMPER) P athologist Signature Phosphorus 3.1 2.5 - 4.5 03/20/2021 [facility] (Inorganic), P mg/dL 8:31 AM PAN DUMPER Specimen Anatomical Collection Method Collection Time Receive d Time (Source) Location / / Volume Laterality Blood 03/20/2021 7:40 AM 7:46 PAN DUMPER AM PAN DUMPER Keerthi Guzman M.D. LAB BLOOD ADD-ON Performing Organization Address [facility] Phon e Number [facility]- [address] [place] [phone] [place] [address] (ABNORMAL) Blood Gas with Coox, Venous (03/20/2021 7:40 AM PAN DUMPER) Patholo gist Method Time Signature Venous pO2 56 Not applicable 03/20/2021 [facility] mm Hg 7:59 AM PAN DUMPER Venous pCO2 30 (L) 41 - 51 mm Hg 03/20/2021 [facility] 7:59 AM PAN DUMPER Venous pH 7.48 (H) 7.32 - 7.43 pH 03/20/2021 [facility] 7:59 AM PAN DUMPER Venous Base -1 Not applicable 03/20/2021 [facility] Excess mmol/L 7:59 AM PAN DUMPER HCO3 22 Not applicable 03/20/2021 [facility] mmol/L 7:59 AM PAN DUMPER Hemoglobin, B 7.8 (L) 11.6 - 15.0 03/20/2021 [facility] g/dL 7:59 AM PAN DUMPER O2Hb 88.2 Not applicable 03/20/2021 [facility] % 7:59 AM PAN DUMPER COHb 1.8 <3.0 % 03/20/2021 [facility] 7:59 AM PAN DUMPER MetHb 0.6 <1.5 % 03/20/2021 [facility] 7:59 AM PAN DUMPER CtO2 9.7 Not Applicable 03/20/2021 [facility] vol % 7:59 AM PAN DUMPER Specimen Anatomical Collection Method Collection Time Receive d Time (Source) Location / / Volume Laterality Blood (Blood, 03/20/2021 7:40 AM 03/20/20 7:46 Venous) PAN DUMPER AM PAN DUMPER Darian Thomas M.D., J.D. LAB BLOOD NON ADD-ON Performing Organization Address City/[facility]/ZIP [place] Phon e Number [facility]- [address] [place] [phone] [place] [address] [address] Magnesium (03/20/2021 7:40 AM PAN DUMPER) P athologist Signature Magnesium, P 2.3 1.7 - 2.3 03/20/2021 [facility] mg/dL 8:31 AM PAN DUMPER Specimen Anatomical Collection Method Collection Time Receive d Time (Source) Location / / Volume Laterality Blood 03/20/2021 7:40 AM 7:46 PAN DUMPER AM PAN DUMPER Keerthi Guzman M.D. LAB BLOOD ADD-ON Performing Organization Address City/[facility]/ZIP [place] Phon e Number [facility]- [address] [place] [phone] [place] [address] Calcium, Ionized (03/20/2021 7:40 AM PAN DUMPER) P athologist Signature Calcium, 5.07 4.65 - 5.30 03/20/2021 [facility] Ionized, B mg/dL 7:59 AM PAN DUMPER Specimen Anatomical Collection Method Collection Time Receive d Time (Source) Location / / Volume Laterality Blood 03/20/2021 7:40 AM 1 7:46 PAN DUMPER AM PAN DUMPER Keerthi Guzman M.D. LAB BLOOD NON ADD-ON Performing Organization Address City/[facility]/ZIP Code Phon e Number [address] [phone] [place] [address] (ABNORMAL) pH (03/20/2021 7:40 AM PAN DUMPER) P athologist Signature pH 7.48 (H) 7.35 - 7.45 03/20/2021 [facility] pH 7:59 AM PAN DUMPER Specimen Anatomical Collection Method Collection Time Receive d Time (Source) Location / / Volume Laterality Blood 03/20/2021 7:40 AM 1 7:46 PAN DUMPER AM PAN DUMPER Keerthi Guzman M.D. LAB HISTORICAL ORDERS Performing Organization Address City/[facility]/ZIP [place] Phon e Number [facility]- [address] [place] [phone] [place] [address] Lactate, B (03/20/2021 7:40 AM PAN DUMPER) athologist [facility] Lactate, B 1.0 0.5 - 2.2 03/20/2021 [facility] mmol/L 7:59 AM PAN DUMPER Specimen Anatomical Collection Method Collection Time Receive d Time (Source) Location / / Volume Laterality Blood 03/20/2021 7:40 AM 1 7:46 PAN DUMPER AM PAN DUMPER Keerthi Guzman M.D. LAB BLOOD NON ADD-ON Performing Organization Address City/[facility] Phon e Number [facility]- [address] [place] [phone] [place] [address] (ABNORMAL) CBC without Differential (03/20/2021 7:40 AM PAN DUMPER) [facility] gist Method Time Signature Hemoglobin 7.6 (L) 11.6 - 03/20/2021 [facility] 15.0 g/dL 8:13 AM PAN DUMPER Hematocrit 23.4 (L) 35.5 - 03/20/2021 [facility] 44.9 % 8:13 AM PAN DUMPER Erythrocytes 2.54 (L) 3.92 - 03/20/2021 [facility] 5.13 8:13 AM PAN DUMPER x10(12)/L MCV 92.1 78.2 - 03/20/2021 [facility] 97.9 fL 8:13 AM PAN DUMPER RBC Distrib Width 20.5 (H) 12.2 - 03/20/2021 [facility] 16.1 % 8:13 AM PAN DUMPER Platelet Count 94 (L) 157 - 371 03/20/2021 [facility] x10(9)/L 8:13 AM PAN DUMPER Leukocytes 5.9 3.4 - 9.6 03/20/2021 [facility] x10(9)/L 8:13 AM PAN DUMPER Specimen Anatomical Collection Method Collection Time Receive d Time (Source) Location / / Volume Laterality Blood (Blood, 03/20/2021 7:40 AM 03/20/20 7:46 Venous) PAN DUMPER AM PAN DUMPER Keerthi Guzman M.D. LAB BLOOD ADD-ON Performing Organization Address City/State/ZIP Code Phon e Number [facility]- [address] [place] [phone] [place] [address] [place] [address] (ABNORMAL) Comprehensive Metabolic Panel (03/20/2021 7:40 AM PAN DUMPER) Analysis Performed At Patho logist Time Signature Potassium, P 3.3 (L) 3.6 - 5.2 03/20/2021 [facility] mmol/L 8:31 AM PAN DUMPER Sodium, P 142 135 - 145 03/20/2021 [facility] mmol/L 8:31 AM PAN DUMPER Chloride, P 108 (H) 98 - 107 03/20/2021 [facility] mmol/L 8:31 AM PAN DUMPER Bicarbonate, P 20 (L) 22 - 29 03/20/2021 [facility] mmol/L 8:31 AM PAN DUMPER Anion Gap, P 14 7 - 15 03/20/2021 [facility] 8:31 AM PAN DUMPER BUN (Blood Urea 4 (L) 6 - 21 03/20/2021 [facility] Nitrogen), P mg/dL 8:31 AM PAN DUMPER Creatinine 0.35 (L) 0.59 - 03/20/2021 [facility] 1.04 mg/dL 8:31 AM PAN DUMPER eGFR-Black/Afri >90 >=60 03/20/2021 [facility] can Bahamian mL/min/BSA 8:32 AM PAN DUMPER Comment: ----ADDITIONAL INFORMATION---- Estimated GFR calculated using the 2009 CKD_EPI creatinine equation. eGFR Non-Black/ >90 >=60 mL/min/BSA 03/20/2021 8:32 AM PAN DUMPER MKTO Comment: ----ADDITIONAL INFORMATION---- Estimated GFR calculated using the 2009 CKD_EPI creatinine equation. Calcium, Total, P 10.2 (H) 8.6 - 10.0 mg/dL 03/20/2021 8:31 AM PAN DUMPER [facility] Glucose, P 107 70 - 140 mg/dL 03/20/2021 8:31 AM PAN DUMPER M KTO Protein, Total, P 6.3 6.3 - 7.9 g/dL 03/20/2021 8:31 A M PAN DUMPER MKTO Albumin, P 5.3 (H) 3.5 - 5.0 g/dL 03/20/2021 8:31 AM PAN DUMPER M KTO Aspartate Aminotransferase 38 8 - 43 U/L 03/20/2021 8 :31 AM PAN DUMPER [facility] (AST), P Alkaline Phosphatase, P 50 35 - 104 U/L 03/20/2021 8: 31 AM PAN DUMPER MKTO Alanine Aminotransferase 11 7 - 45 U/L 03/20/2021 8:3 1 AM PAN DUMPER [facility]TO (ALT), P Bilirubin, Total, P 6.0 (H) <=1.2 mg/dL 03/20/2021 8:31 AM PAN DUMPER MKTO Specimen Anatomical Collection Method Collection Time Receive d Time (Source) Location / / Volume Laterality Blood (Blood, 03/20/2021 7:40 AM 03/20/20 7:46 Venous) PAN DUMPER AM PAN DUMPER Keerthi Guzman M.D. LAB BLOOD ADD-ON Performing Organization Address City/State/ZIP Code Phon e Number [facility]- [address] [place] [phone] [place] [address] [place] [address] (ABNORMAL) Prothrombin Time (PT) (03/20/2021 7:40 AM PAN DUMPER) [facility] gist Method Time Signature Prothrombin 27.0 (H) 9.4 - 12.5 03/20/2021 [facility] Time, P sec 8:13 AM PAN DUMPER INR 2.4 0.9 - 1.1 03/20/2021 [facility] 8:13 AM PAN DUMPER Comment: ----ADDITIONAL INFORMATION---- Standard intensity warfarin therapeutic range: 2.0 to 3.0 ?? High intensity warfarin therapeutic rang e: 2.5 to 3.5 Specimen Anatomical Collection Method Collection Time Receive d Time (Source) Location / / Volume Laterality Blood (Blood, 03/20/2021 7:40 AM 03/20/20 7:46 Venous) PAN DUMPER AM PAN DUMPER Keerthi Guzman M.D. LAB BLOOD ADD-ON Performing Organization Address City/State/ZIP Code Phon e Number [facility]- [address] [place] [phone] [place] [address] Transfuse Fresh Frozen Plasma :INR >2: Invasive proc scheduled; 180 mL/hr (03/19/2021 6:37 PM PAN DUMPER) Keerthi Guzman M.D. BLOOD TRANSFUSION ORDERABLES Transfuse Fresh Frozen Plasma :INR >2: Invasive proc scheduled; 180 mL/hr, 1 Units (03/19/2021 6:37 PM PAN DUMPER) Keerthi Guzman M.D. BLOOD TRANSFUSION ORDERABLES Transfuse Red Blood Cells : (03/19/2021 3:21 PM PAN DUMPER) Darian Thomas M.D., J.D. BLOOD TRANSFUSION ORDERAB LES Transfuse Red Blood Cells : , 1 Units (03/19/2021 3:21 PM PAN DUMPER) Darian Thomas M.D., J.D. BLOOD TRANSFUSION ORDERAB LES (ABNORMAL) 25-Hydroxyvitamin D2 and D3 (03/19/2021 3:04 PM PAN DUMPER) P athologist Signature 25-Hydroxy D2 <4.0 ng/mL 03/24/2021 SDSC 4:43 PM PAN DUMPER 25-Hydroxy D3 3.2 ng/mL 03/24/2021 SDSC 4:43 PM PAN DUMPER 25-Hydroxy D <6.0 (L) ng/mL 03/24/2021 SDSC Total 4:43 PM PAN DUMPER Comment: Interpretation: <10 ng/mL (severe defici ency) ----REFERENCE VALUE---- 25-HYDROXY D TOTAL (D2+D3) Optimum level s in the healthy population are 20-50, patients with bone disease may benefit from higher levels within this r vinh. ----ADDITIONAL INFORMATION---- This test was developed and its performa nce characteristics determined by [facility] in a manner consistent with CLIA requirements. This test has not been cleared or approved by the [place] and Drug Administration. Specimen Anatomical Collection Method Collection Time Receive d Time (Source) Location / / Volume Laterality Blood (Blood, 03/19/2021 3:04 PM 03/20/20 7:18 Venous) PAN DUMPER AM PAN DUMPER Keerthi Guzman M.D. LAB BLOOD ADD-ON Performing Organization Address City/[facility]/ZIP Code Phon e Number [facility] [address] [place], [place] [address] [place] [address] [place] [address] Laboratory Medicine and Pathology [address] [place] Parathyroid Hormone (PTH) (03/19/2021 3:04 PM PAN DUMPER) athologist Signature Parathyroid 44 15 - 65 03/19/2021 MKTO Hormone (PTH), S pg/mL 4:17 PM PAN DUMPER Comment: Biotin has been identified by the chantelle [facility] as a potential interfering substance. ??Higher concentr ations of biotin may be found in multivitamins, hair/nail supple ments, and workout supplements. ??If the result does not [facility] clinical observations, repeat testing after patient refrains fr om the use of supplements for at least 12 hours. Specimen Anatomical Collection Method Collection Time Receive d Time (Source) Location / / Volume Laterality Blood (Blood, 03/19/2021 3:04 PM 03/19/20 21 3:09 Venous) PAN DUMPER PM PAN DUMPER Keerthi Guzman M.D. LAB BLOOD ADD-ON Performing Organization Address City/[facility] Code Phon e Number [facility]- [address] [place] [phone] [facility] [place] [address] System [address] (ABNORMAL) pH (03/19/2021 3:04 PM PAN DUMPER) athologist Signature pH 7.51 (H) 7.35 - 7.45 03/19/2021 MKTO pH 3:13 PM PAN DUMPER Specimen Anatomical Collection Method Collection Time Receive d Time (Source) Location / / Volume Laterality Blood 03/19/2021 3:04 PM 11/17/202 1 3:09 PAN DUMPER PM PAN DUMPER Darian Thomas M.D., J.D. LAB HISTORICAL ORDERS Performing Organization Address City/[facility]/ZIP Code Phon e Number [facility]- [address] [place] [phone] [place] [address] [address] Calcium, Ionized (03/19/2021 3:04 PM PAN DUMPER) P athologist Signature Calcium, 4.88 4.65 - 5.30 03/19/2021 MKTO Ionized, B mg/dL 3:13 PM PAN DUMPER Specimen Anatomical Collection Method Collection Time Receive d Time (Source) Location / / Volume Laterality Blood 03/19/2021 3:04 PM 3:09 PAN DUMPER PM PAN DUMPER Darian Thomas M.D., J.D. LAB BLOOD NON ADD-ON Performing Organization Address City/[facility]/ZIP Code Phon e Number [facility]- [address] [place] [phone] [place] [address] (ABNORMAL) Potassium (03/19/2021 3:04 PM PAN DUMPER) P athologist Signature Potassium, P 3.5 (L) 3.6 - 5.2 03/19/2021 MKTO mmol/L 3:36 PM PAN DUMPER Specimen Anatomical Collection Method Collection Time Receive d Time (Source) Location / / Volume Laterality Blood (Blood, 03/19/2021 3:04 PM 03/19/20 21 3:09 Venous) PAN DUMPER PM PAN DUMPER Keerthi Guzman M.D. LAB BLOOD ADD-ON Performing Organization Address City/[facility]/ZIP Code Phon e Number [facility]- [address] [place] [phone] [place] [address] (TTE) 2D ECHO DOPPLER COLOR AND CONTRAST (03/19/2021 12:39 PM PAN DUMPER) Patholo gist Method Time Signature Ejection Fraction 68 MC CV EIMS Proximal Ascending 28 MC CV EIMS Aorta LV Mass Index 101 MC CV EIMS LV End-Diastolic 48 MC CV EIMS Diameter LV End-Systolic 30 MC CV EIMS Diameter LV End-Diastolic 122 MC CV EIMS Volume LV End-Systolic 37 MC CV EIMS Volume MV E Velocity 1.3 MC CV EIMS MV A Velocity 0.9 MC CV EIMS MV E/A 1.44 MC CV EIMS MV e' Velocity 0.09 MC CV EIMS Medial MV e' Velocity 0.10 MC CV EIMS Lateral MV E/e' Medial 14.4 MC CV EIMS MV E/e' Lateral 13.0 MC CV EIMS Left ventricular 69 MC CV EIMS stroke volume index Cardiac Output 10.13 MC CV EIMS Cardiac Index 6.49 MC CV EIMS LV Interventricular 10 MC CV EIMS Septal Wall Thickness LV Posterior Wall 9 MC CV EIMS Thickness LV Relative Wall 38 MC CV EIMS Thickness RV 4-Chamber Basal 41 MC CV EIMS Diameter TAPSE 41 MC CV EIMS TR Vmax 2.45 MC CV EIMS RA Pressure 10 MC CV EIMS RV Systolic Pressure 34 MC CV EIM S AV mean gradient 6 MC CV EIMS Aortic valve area 2.83 MC CV EIMS Aortic Valve 0.82 MC CV EIMS Dimensionless Index LA Volume Index 53 MC CV EIMS Anatomical Region Laterality Modality Echocardiography Specimen (Source) Anatomical Collection Method Collection Time Re ceived Time Location / / Volume Laterality 03/19/2021 10:58 AM PAN DUMPER Impressions 03/19/2021 12:59 PM PAN DUMPER Echo performed at the patient's bedside. ??Hemoglobin 6.8 g/dl ??LEFT VENTRICLE: ??Normal left ventricular chamber size. ??Normal left ventricular wall thickness. ??Calculated 2-D biplane volumetric left ventricular ejection fra ction 68 %. ??No regional wall motion abnormalities. Mildly elevated left ventricular filling pressure. ??RIGHT VENTRICLE: ??Normal right ventricular chamber size. ??Normal right ventricular systolic function. ??Estimated right ventricular systolic pressure 34 mmHg (systolic bloo d pressure 126 mmHg). ??ATRIA: ??Severely enlarged left atrial size. ??Left atrial volume index 53 ml/m^2. ??Normal right atrial size. ??CARDIAC VALVES: Trileaflet aortic valve. ??Normal aortic valve. ??No aortic valve regurgitation. ??Normal mitral valve. ??Trivial mitral valve regurgitat ion. ??Normal pulmonary valve. ??Increased pulmonary valve systolic velocities. ??Trivial pulmonary valve regurgitation. ??Normal tricuspid valve. ??Trivial tricuspid valve regurgitation. ??OTHER E CHO FINDINGS: ??Normal inferior vena cava size with reduced inspiratory collapse (<50%). ??N ormal proximal ascending aorta diameter (diameter 28 mm at proximal level). ??Abdominal aorta in completely visualized. ??Normal abdominal aorta Doppler flow pattern. ??Agitated saline injectio n(s) performed. ??Positive for atrial level shunt by agitated saline contrast injection. ??No intracardiac mass or thrombus, but the left atrial appendage cannot be visualized adequatel y with transthoracic echo to exclude thrombus in this location. ??No pericardial effusion. For the complete report, see the [facility] Documents. Narrative 03/19/2021 12:59 PM PAN DUMPER For the complete report, see the [facility] Documents. Final Impressions 1. Positive for atrial level shunt by ag itated saline contrast injection. 2. Patent foramen ovale , 20 or greater bubbles seen in the left-sided chambers. 3. Normal left ventricular chamber size, no regional wall motion abnormalities, calculated 2-D biplane volumetric ejection fraction 68 %. 4. Mildly elevated left ventricular fill ing pressure. 5. Normal right ventricular chamber size , normal systolic function, estimated right ventricular systolic pressure 34 mmHg (systolic bloo d pressure 126 mmHg). 6. Severely enlarged left atrial size. ? ?Left atrial volume index 53 ml/m? ??. 7. No significant valvular heart disease . 8. Normal inferior vena cava size with r educed inspiratory collapse (<50%). 9. No pericardial effusion. 10. No previous studies available for co mparison. Procedure Note Foster Luna M.B., B.Ch. - 2020 For the complete report, see the [facility] Documents. Final Impressions 1. Positive for atrial level shunt by ag itated saline contrast injection. 2. Patent foramen ovale , 20 or greater bubbles seen in the left-sided chambers. 3. Normal left ventricular chamber size, no regional wall motion abnormalities, calculated 2-D biplane volumetric ejection fraction 68 %. 4. Mildly elevated left ventricular fill ing pressure. 5. Normal right ventricular chamber size , normal systolic function, estimated right ventricular systolic pressure 34 mmHg (systolic bloo d pressure 126 mmHg). 6. Severely enlarged left atrial size. L eft atrial volume index 53 ml/m? ??. 7. No significant valvular heart disease . 8. Normal inferior vena cava size with r educed inspiratory collapse (<50%). 9. No pericardial effusion. 10. No previous studies available for co mparison. Findings Echo performed at the patient's bedside. Hemoglobin 6.8 g/dl LEFT VENTRICLE: Normal left ventricular chamber size. Normal left ve ntricular wall thickness. Calculated 2-D biplane volumetric left ventricular ejection fra ction 68 %. No regional wall motion abnormalities. Mildly elevated left ventricular filling pressure. RIGHT VENTRICLE: Normal right ventricular chamber size. Normal right ventricular s ystolic function. Estimated right ventricular systolic pressure 34 mmHg (systolic bloo d pressure 126 mmHg). ATRIA: Severely enlarged left atrial size. Left atrial volume index 53 ml/m^2. Normal right atrial size. CARDIAC VALVES: Trileaflet aortic valve. Normal aortic v alve. No aortic valve regurgitation. Normal mitral valve. Trivial mitral valve regurgitatio n. Normal pulmonary valve. Increased pulmonary valve systolic velocities. Trivial pulmonary v alve regurgitation. Normal tricuspid valve. Trivial tricuspid valve regurgitation. OTHER ECH O FINDINGS: Normal inferior vena cava size with reduced inspiratory collapse (<50%). Nor mal proximal ascending aorta diameter (diameter 28 mm at proximal level). Abdominal aorta inco mpletely visualized. Normal abdominal aorta Doppler flow pattern. Agitated saline injection( s) performed. Positive for atrial level shunt by agitated saline contrast injection. No i ntracardiac mass or thrombus, but the left atrial appendage cannot be visualized adequatel y with transthoracic echo to exclude thrombus in this location. No pericardial effusion. For the complete report, see the [facility] Documents. Darian Thomas M.D., J.D. CV ECHO PROCEDURES (ABNORMAL) Ammonia (03/19/2021 7:39 AM PAN DUMPER) P athologist Signature Ammonia, P 65 (H) <=51 03/19/2021 MKTO mcmol/L 8:26 AM PAN DUMPER Specimen Anatomical Collection Method Collection Time Receive d Time (Source) Location / / Volume Laterality Blood (Blood, 03/19/2021 7:39 AM 03/19/20 8:06 Venous) PAN DUMPER AM PAN DUMPER Darian Thomas M.D., J.D. LAB BLOOD NON ADD-ON Performing Organization Address City/[facility]/ZIP Code Phon e Number [facility]- [address] [place] [phone] [place] [address] System [address] (ABNORMAL) Phosphorus Inorganic (03/19/2021 7:39 AM PAN DUMPER) P athologist Signature Phosphorus 1.8 (L) 2.5 - 4.5 03/19/2021 MKTO (Inorganic), P mg/dL 8:32 AM PAN DUMPER Specimen Anatomical Collection Method Collection Time Receive d Time (Source) Location / / Volume Laterality Blood (Blood, 03/19/2021 7:39 AM 03/19/20 7:57 Venous) PAN DUMPER AM PAN DUMPER Darian Thomas M.D., J.D. LAB BLOOD ADD-ON Performing Organization Address City/[facility] Phon e Number [facility]- [address] [place] [phone] [facility] [place] [address] System [place] [address] (ABNORMAL) Magnesium (03/19/2021 7:39 AM PAN DUMPER) P athologist Signature Magnesium, P 1.5 (L) 1.7 - 2.3 03/19/2021 MKTO mg/dL 8:32 AM PAN DUMPER Specimen Anatomical Collection Method Collection Time Receive d Time (Source) Location / / Volume Laterality Blood (Blood, 03/19/2021 7:39 AM 03/19/20 7:57 Venous) PAN DUMPER AM PAN DUMPER Darian Thomas M.D., J.D. LAB BLOOD ADD-ON Performing Organization Address City/[facility] Phon e Number [facility]- [address] [place] [phone] [facility] [place] [address] System in [address] (ABNORMAL) Comprehensive Metabolic Panel (03/19/2021 7:39 AM PAN DUMPER) Analysis [facility] Time Signature Potassium, P 3.1 (L) 3.6 - 5.2 03/19/2021 MKTO mmol/L 8:32 AM PAN DUMPER Sodium, P 140 135 - 145 03/19/2021 MKTO mmol/L 8:32 AM PAN DUMPER Chloride, P 102 98 - 107 03/19/2021 MKTO mmol/L 8:32 AM PAN DUMPER Bicarbonate, P 19 (L) 22 - 29 03/19/2021 MKTO mmol/L 8:32 AM PAN DUMPER Anion Gap, P 19 (H) 7 - 15 03/19/2021 MKTO 8:32 AM PAN DUMPER BUN (Blood Urea 6 6 - 21 03/19/2021 MKTO Nitrogen), P mg/dL 8:32 AM PAN DUMPER Creatinine 0.33 (L) 0.59 - 03/19/2021 MKTO 1.04 mg/dL 8:32 AM PAN DUMPER eGFR-Black/Afri >90 >=60 03/19/2021 MKTO can Bahamian mL/min/BSA 8:32 AM PAN DUMPER Comment: ----ADDITIONAL INFORMATION---- Estimated GFR calculated using the 2009 CKD_EPI creatinine equation. eGFR Non-Black/ >90 >=60 mL/min/BSA 03/19/2021 8:32 AM PAN DUMPER MKTO Comment: ----ADDITIONAL INFORMATION---- Estimated GFR calculated using the 2009 CKD_EPI creatinine equation. Calcium, Total, P 10.6 (H) 8.6 - 10.0 mg/dL 03/19/2021 8:32 AM PAN DUMPER MKTO Glucose, P 116 70 - 140 mg/dL 03/19/2021 8:32 AM PAN DUMPER M KTO Protein, Total, P 6.9 6.3 - 7.9 g/dL 03/19/2021 8:32 A M PAN DUMPER MKTO Albumin, P 6.7 (H) 3.5 - 5.0 g/dL 03/19/2021 9:07 AM PAN DUMPER M KTO Aspartate Aminotransferase 33 8 - 43 U/L 03/19/2021 8 :32 AM PAN DUMPER MKTO (AST), P Alkaline Phosphatase, P 43 35 - 104 U/L 03/19/2021 8: 32 AM PAN DUMPER MKTO Alanine Aminotransferase 10 7 - 45 U/L 03/19/2021 8:3 2 AM PAN DUMPER MKTO (ALT), P Bilirubin, Total, P 6.6 (H) <=1.2 mg/dL 03/19/2021 8:32 AM PAN DUMPER MKTO Specimen Anatomical Collection Method Collection Time Receive d Time (Source) Location / / Volume Laterality Blood (Blood, 03/19/2021 7:39 AM 03/19/20 7:57 Venous) PAN DUMPER AM PAN DUMPER Darian Thomas M.D., J.D. LAB BLOOD ADD-ON Performing Organization Address City/[facility] Phon e Number [facility]- [address] [place] [phone] [facility] [place] [address] (ABNORMAL) Prothrombin Time (PT) (03/19/2021 7:39 AM PAN DUMPER) [facility] Method Time Signature Prothrombin 28.4 (H) 9.4 - 12.5 03/19/2021 MKTO Time, P sec 8:10 AM PAN DUMPER INR 2.5 0.9 - 1.1 03/19/2021 MKTO 8:10 AM PAN DUMPER Comment: ----ADDITIONAL INFORMATION---- Standard intensity warfarin therapeutic range: 2.0 to 3.0 ?? High intensity warfarin therapeutic rang e: 2.5 to 3.5 Specimen Anatomical Collection Method Collection Time Receive d Time (Source) Location / / Volume Laterality Blood (Blood, 03/19/2021 7:39 AM 03/19/20 7:57 Venous) PAN DUMPER AM PAN DUMPER Darian Thomas M.D., J.D. LAB BLOOD ADD-ON Performing Organization Address City/[facility] Phon e Number [facility]- [address] [place] [phone] [facility] [place] [address] [address] (ABNORMAL) CBC with Differential, Blood (03/19/2021 7:39 AM PAN DUMPER) [facility] Method Time Signature Hemoglobin 6.8 (L) 11.6 - 03/19/2021 MKTO 15.0 g/dL 8:05 AM PAN DUMPER Hematocrit 20.4 (L) 35.5 - 03/19/2021 MKTO 44.9 % 8:05 AM PAN DUMPER Erythrocytes 2.25 (L) 3.92 - 03/19/2021 MKTO 5.13 8:05 AM PAN DUMPER x10(12)/L MCV 90.7 78.2 - 03/19/2021 MKTO 97.9 fL 8:05 AM PAN DUMPER RBC Distrib Width 20.7 (H) 12.2 - 03/19/2021 MKTO 16.1 % 8:05 AM PAN DUMPER Platelet Count 92 (L) 157 - 371 03/19/2021 MKTO x10(9)/L 8:05 AM PAN DUMPER Leukocytes 5.6 3.4 - 9.6 03/19/2021 MKTO x10(9)/L 8:05 AM PAN DUMPER Neutrophils 3.54 1.56 - 03/19/2021 MKTO 6.45 8:05 AM PAN DUMPER x10(9)/L Lymphocytes 1.31 0.95 - 03/19/2021 MKTO 3.07 8:05 AM PAN DUMPER x10(9)/L Monocytes 0.64 0.26 - 03/19/2021 MKTO 0.81 8:05 AM PAN DUMPER x10(9)/L Eosinophils 0.07 0.03 - 03/19/2021 MKTO 0.48 8:05 AM PAN DUMPER x10(9)/L Basophils <0.03 0.01 - 03/19/2021 MKTO 0.08 8:05 AM PAN DUMPER x10(9)/L Specimen Anatomical Collection Method Collection Time Receive d Time (Source) Location / / Volume Laterality Blood (Blood, 03/19/2021 7:39 AM 03/19/20 21 7:57 Venous) PAN DUMPER AM PAN DUMPER Darian Thomas M.D., J.D. LAB BLOOD ADD-ON Performing Organization Address City/State/ZIP Code Phon e Number [facility]- [address] [place] [phone] [facility] [place] [address] (ABNORMAL) Bilirubin, Direct (03/19/2021 7:38 AM PAN DUMPER) P athologist Signature Bilirubin, 1.6 (H) 0.0 - 0.3 03/19/2021 MKTO Direct, P mg/dL 1:13 PM PAN DUMPER Specimen Anatomical Collection Method Collection Time Receive d Time (Source) Location / / Volume Laterality Blood (Blood, 03/19/2021 7:38 AM 03/19/20 21 Venous) PAN DUMPER 12:25 PM PAN DUMPER Keerthi Guzman M.D. LAB BLOOD ADD-ON Performing Organization Address City/[facility]/ZIP Code Phon e Number [facility]- [address] [place] [address] [facility] [place] [address] System in [place] [address] [facility] ECG 12 Lead (03/19/2021 6:44 AM PAN DUMPER) P athologist Signature Ventricular Rate 108 BPM MUSE ECG/Min [place] Interval 156 ms MUSE QRSD Interval 82 ms MUSE QT Interval 298 ms MUSE QTC Interval 399 ms MUSE P [place] 43 degrees MUSE R [place] 41 degrees MUSE T Wave [place] -17 degrees MUSE Specimen Anatomical Collection Method Collection Time Receive d Time (Source) Location / / Volume Laterality 03/19/2021 6:44 AM 6:49 PAN DUMPER AM PAN DUMPER Impressions MUSE - 03/19/2021 6:49 AM PAN DUMPER Sinus tachycardia Nonspecific T wave abnormality When compared with ECG of 12-MAR-2021 13 :01, QT has shortened Reviewed by STERLING Garrison Narrative This result has an attachment that is no t available. Procedure Note Elijah Roberts M.D. - 03/19/2021Formatt ing of this note might be different from the original. IMPRESSION: Sinus tachycardia Nonspecific T wave abnormality When compared with ECG of 12-MAR-2021 13 :01, QT has shortened Reviewed by STERLING Garrison Sivakumar Reyes M.D. ECG ORDERABLES Performing Organization Address City/State/ZIP Code Phon e Number MUSE MUSE NA (ABNORMAL) Hemoglobin (03/18/2021 7:00 PM PAN DUMPER) P athologist Signature Hemoglobin 7.6 (L) 11.6 - 15.0 03/18/2021 MKTO g/dL 7:07 PM PAN DUMPER Specimen Anatomical Collection Method Collection Time Receive d Time (Source) Location / / Volume Laterality Blood (Blood, 03/18/2021 7:00 PM 03/18/20 7:03 Venous) PAN DUMPER PM PAN DUMPER Darian Thomas M.D., J.D. LAB BLOOD ADD-ON Performing Organization Address City/[facility]/ZIP Code Phon e Number [facility]- [address] [place] [phone] [place] [address] System in [place] [address] [place] [address] (ABNORMAL) Ammonia (03/18/2021 6:59 PM PAN DUMPER) P athologist Signature Ammonia, P 55 (H) <=51 03/18/2021 MKTO mcmol/L 7:23 PM PAN DUMPER Specimen Anatomical Collection Method Collection Time Receive d Time (Source) Location / / Volume Laterality Blood (Blood, 03/18/2021 6:59 PM 03/18/20 7:03 Venous) PAN DUMPER PM PAN DUMPER Darian Thomas M.D., J.D. LAB BLOOD NON ADD-ON Performing Organization Address [facility] Code Phon e Number [facility]- [address] [place] [phone] [place] [address] System in [place] [address] [facility] (ABNORMAL) Prothrombin Time (PT) (03/18/2021 8:35 AM PAN DUMPER) Patholo gist Method Time Signature Prothrombin 28.8 (H) 9.4 - 12.5 03/18/2021 MKTO Time, P sec 9:20 AM PAN DUMPER INR 2.6 0.9 - 1.1 03/18/2021 MKTO 9:20 AM PAN DUMPER Comment: ----ADDITIONAL INFORMATION---- Standard intensity warfarin therapeutic range: 2.0 to 3.0 ?? High intensity warfarin therapeutic rang e: 2.5 to 3.5 Specimen Anatomical Collection Method Collection Time Receive d Time (Source) Location / / Volume Laterality Blood (Blood, 03/18/2021 8:35 AM 03/18/20 8:41 Venous) PAN DUMPER AM PAN DUMPER Darian Thomas M.D., J.D. LAB BLOOD ADD-ON Performing Organization Address City/[facility]/ZIP Code Phon e Number [facility]- [address] [place] [phone] [facility] [place] [address] System in [place] [address] [facility] (ABNORMAL) Comprehensive Metabolic Panel (03/18/2021 8:35 AM PAN DUMPER) Analysis Performed At Patho logist Time Signature Potassium, P 3.1 (L) 3.6 - 5.2 03/18/2021 MKTO mmol/L 9:07 AM PAN DUMPER Sodium, P 141 135 - 145 03/18/2021 MKTO mmol/L 9:07 AM PAN DUMPER Chloride, P 106 98 - 107 03/18/2021 MKTO mmol/L 9:07 AM PAN DUMPER Bicarbonate, P 20 (L) 22 - 29 03/18/2021 MKTO mmol/L 9:07 AM PAN DUMPER Anion Gap, P 15 7 - 15 03/18/2021 MKTO 9:07 AM PAN DUMPER BUN (Blood Urea 7 6 - 21 03/18/2021 MKTO Nitrogen), P mg/dL 9:07 AM PAN DUMPER Creatinine 0.32 (L) 0.59 - 03/18/2021 MKTO 1.04 mg/dL 9:07 AM PAN DUMPER eGFR-Black/Afri >90 >=60 03/18/2021 MKTO can Bahamian mL/min/BSA 9:07 AM PAN DUMPER Comment: ----ADDITIONAL INFORMATION---- Estimated GFR calculated using the 2009 CKD_EPI creatinine equation. eGFR Non-Black/ >90 >=60 mL/min/BSA 03/18/2021 9:07 AM PAN DUMPER MKTO Comment: ----ADDITIONAL INFORMATION---- Estimated GFR calculated using the 2009 CKD_EPI creatinine equation. Calcium, Total, P 10.2 (H) 8.6 - 10.0 mg/dL 03/18/2021 9:07 AM PAN DUMPER MKTO Glucose, P 109 70 - 140 mg/dL 03/18/2021 9:07 AM PAN DUMPER M KTO Protein, Total, P 6.3 6.3 - 7.9 g/dL 03/18/2021 9:07 A M PAN DUMPER MKTO Albumin, P 5.4 (H) 3.5 - 5.0 g/dL 03/18/2021 9:07 AM PAN DUMPER M KTO Aspartate Aminotransferase 32 8 - 43 U/L 03/18/2021 9 :07 AM PAN DUMPER MKTO (AST), P Alkaline Phosphatase, P 42 35 - 104 U/L 03/18/2021 9: 07 AM PAN DUMPER MKTO Alanine Aminotransferase 8 7 - 45 U/L 03/18/2021 9:0 7 AM PAN DUMPER MKTO (ALT), P Bilirubin, Total, P 7.7 (H) <=1.2 mg/dL 03/18/2021 9:07 AM PAN DUMPER MKTO Specimen Anatomical Collection Method Collection Time Receive d Time (Source) Location / / Volume Laterality Blood (Blood, 03/18/2021 8:35 AM 03/18/20 8:41 Venous) PAN DUMPER AM PAN DUMPER Darian Thomas M.D., J.D. LAB BLOOD ADD-ON Performing Organization Address City/State/ZIP Code Phon e Number [facility]- [address] [place] [address] [place] [address] (ABNORMAL) CBC with Differential, Blood (03/18/2021 8:35 AM PAN DUMPER) [facility] gist Method Time Signature Hemoglobin 7.1 (L) 11.6 - 03/18/2021 MKTO 15.0 g/dL 8:46 AM PAN DUMPER Hematocrit 21.3 (L) 35.5 - 03/18/2021 MKTO 44.9 % 8:46 AM PAN DUMPER Erythrocytes 2.44 (L) 3.92 - 03/18/2021 MKTO 5.13 8:46 AM PAN DUMPER x10(12)/L MCV 87.3 78.2 - 03/18/2021 MKTO 97.9 fL 8:46 AM PAN DUMPER RBC Distrib Width 19.8 (H) 12.2 - 03/18/2021 MKTO 16.1 % 8:46 AM PAN DUMPER Platelet Count 77 (L) 157 - 371 03/18/2021 MKTO x10(9)/L 8:46 AM PAN DUMPER Leukocytes 6.2 3.4 - 9.6 03/18/2021 MKTO x10(9)/L 8:46 AM PAN DUMPER Neutrophils 3.96 1.56 - 03/18/2021 MKTO 6.45 8:46 AM PAN DUMPER x10(9)/L Lymphocytes 1.35 0.95 - 03/18/2021 MKTO 3.07 8:46 AM PAN DUMPER x10(9)/L Monocytes 0.74 0.26 - 03/18/2021 MKTO 0.81 8:46 AM PAN DUMPER x10(9)/L Eosinophils 0.08 0.03 - 03/18/2021 MKTO 0.48 8:46 AM PAN DUMPER x10(9)/L Basophils <0.03 0.01 - 03/18/2021 MKTO 0.08 8:46 AM PAN DUMPER x10(9)/L Specimen Anatomical Collection Method Collection Time Receive d Time (Source) Location / / Volume Laterality Blood (Blood, 03/18/2021 8:35 AM 03/18/20 8:41 Venous) PAN DUMPER AM PAN DUMPER Darian Thomas M.D., J.D. LAB BLOOD ADD-ON Performing Organization Address [facility] Phon e Number [address] [phone] [facility] [place] [id number] System [address] Magnesium (03/17/2021 6:35 AM PAN DUMPER) P athologist Signature Magnesium, P 1.7 1.7 - 2.3 03/17/2021 MKTO mg/dL 7:24 AM PAN DUMPER Specimen Anatomical Collection Method Collection Time Receive d Time (Source) Location / / Volume Laterality Blood (Blood, 03/17/2021 6:35 AM 03/17/20 6:43 Venous) PAN DUMPER AM PAN DUMPER Ulises Santillan LAB BLOOD ADD-ON Performing Organization Address City/[facility] Phon e Number [address] [phone] [facility] [place] [address] (ABNORMAL) Basic Metabolic Panel (03/17/2021 6:35 AM PAN DUMPER) Analysis Performed At Patho logist Time Signature Potassium, P 3.7 3.6 - 5.2 03/17/2021 MKTO mmol/L 7:24 AM PAN DUMPER Sodium, P 141 135 - 145 03/17/2021 MKTO mmol/L 7:24 AM PAN DUMPER Chloride, P 106 98 - 107 03/17/2021 MKTO mmol/L 7:24 AM PAN DUMPER Bicarbonate, P 21 (L) 22 - 29 03/17/2021 MKTO mmol/L 7:24 AM PAN DUMPER Anion Gap, P 14 7 - 15 03/17/2021 MKTO 7:24 AM PAN DUMPER BUN (Blood Urea 5 (L) 6 - 21 03/17/2021 MKTO Nitrogen), P mg/dL 7:24 AM PAN DUMPER Creatinine 0.35 (L) 0.59 - 03/17/2021 MKTO 1.04 mg/dL 7:24 AM PAN DUMPER eGFR-Black/Afri >90 >=60 03/17/2021 MKTO can Bahamian mL/min/BSA 7:24 AM PAN DUMPER Comment: ----ADDITIONAL INFORMATION---- Estimated GFR calculated using the 2009 CKD_EPI creatinine equation. eGFR Non-Black/ >90 >=60 mL/min/BSA 03/17/2021 7:24 AM PAN DUMPER MKTO Comment: ----ADDITIONAL INFORMATION---- Estimated GFR calculated using the 2009 CKD_EPI creatinine equation. Calcium, Total, P 9.7 8.6 - 10.0 mg/dL 03/17/2021 7:24 AM PAN DUMPER MKTO Glucose, P 116 70 - 140 mg/dL 03/17/2021 7:24 AM PAN DUMPER M KTO Specimen Anatomical Collection Method Collection Time Receive d Time (Source) Location / / Volume Laterality Blood (Blood, 03/17/2021 6:35 AM 03/17/20 6:43 Venous) PAN DUMPER AM PAN DUMPER Harish Ansari P.A.-C., M.S. LAB BLOOD ADD-ON Performing Organization Address City/State/ZIP Code Phon e Number [facility]- [address] [place] [phone] [facility] [place] [address] (ABNORMAL) CBC with Differential, Blood (03/17/2021 6:35 AM PAN DUMPER) [facility] gist Method Time Signature Hemoglobin 7.7 (L) 11.6 - 03/17/2021 MKTO 15.0 g/dL 6:58 AM PAN DUMPER Hematocrit 22.3 (L) 35.5 - 03/17/2021 MKTO 44.9 % 6:58 AM PAN DUMPER Erythrocytes 2.56 (L) 3.92 - 03/17/2021 MKTO 5.13 6:58 AM PAN DUMPER x10(12)/L MCV 87.1 78.2 - 03/17/2021 MKTO 97.9 fL 6:58 AM PAN DUMPER RBC Distrib Width 19.3 (H) 12.2 - 03/17/2021 MKTO 16.1 % 6:58 AM PAN DUMPER Platelet Count 68 (L) 157 - 371 03/17/2021 MKTO x10(9)/L 6:58 AM PAN DUMPER Leukocytes 6.1 3.4 - 9.6 03/17/2021 MKTO x10(9)/L 6:58 AM PAN DUMPER Neutrophils 3.82 1.56 - 03/17/2021 MKTO 6.45 6:58 AM PAN DUMPER x10(9)/L Lymphocytes 1.39 0.95 - 03/17/2021 MKTO 3.07 6:58 AM PAN DUMPER x10(9)/L Monocytes 0.77 0.26 - 03/17/2021 MKTO 0.81 6:58 AM PAN DUMPER x10(9)/L Eosinophils 0.05 0.03 - 03/17/2021 MKTO 0.48 6:58 AM PAN DUMPER x10(9)/L Basophils <0.03 0.01 - 03/17/2021 MKTO 0.08 6:58 AM PAN DUMPER x10(9)/L Specimen Anatomical Collection Method Collection Time Receive d Time (Source) Location / / Volume Laterality Blood (Blood, 03/17/2021 6:35 AM 03/17/20 6:42 Venous) PAN DUMPER AM PAN DUMPER Harish Ansari P.A.-C., M.S. LAB BLOOD ADD-ON Performing Organization Address City/State/ZIP Code Phon e Number [facility]- [address] [place] [phone] [facility] [place] [address] (ABNORMAL) Hematocrit (03/16/2021 4:14 PM PAN DUMPER) athologist Signature Hematocrit 23.7 (L) 35.5 - 44.9 03/16/2021 MKTO % 4:25 PM PAN DUMPER Specimen Anatomical Collection Method Collection Time Receive d Time (Source) Location / / Volume Laterality Blood (Blood, 03/16/2021 4:14 PM 03/16/20 4:23 Venous) PAN DUMPER PM PAN DUMPER Lizet Navarro M.D. LAB BLOOD ADD-ON Performing Organization Address City/State/ZIP Code Phon e Number [facility]- [address] [place] [phone] [place] [address] (ABNORMAL) Hemoglobin (03/16/2021 4:14 PM PAN DUMPER) P athologist Signature Hemoglobin 8.2 (L) 11.6 - 15.0 03/16/2021 MKTO g/dL 4:25 PM PAN DUMPER Specimen Anatomical Collection Method Collection Time Receive d Time (Source) Location / / Volume Laterality Blood (Blood, 03/16/2021 4:14 PM 03/16/20 4:23 Venous) PAN DUMPER PM PAN DUMPER Lizet Navarro M.D. LAB BLOOD ADD-ON Performing Organization Address City/[facility] Code Phon e Number [facility]- [address] [place] [phone] [place] [address] System [address] (ABNORMAL) Hematocrit (03/16/2021 12:58 PM PAN DUMPER) P athologist Signature Hematocrit 24.8 (L) 35.5 - 44.9 03/16/2021 MKTO % 1:27 PM PAN DUMPER Specimen Anatomical Collection Method Collection Time Receive d Time (Source) Location / / Volume Laterality Blood (Blood, 03/16/2021 12:58 03/16/2021 1:04 Venous) PM PAN DUMPER PM PAN DUMPER Lizet Navarro M.D. LAB BLOOD ADD-ON Performing Organization Address City/[facility]/ZIP Code Phon e Number [facility]- [address] [place] [phone] [place] [address] (ABNORMAL) Hemoglobin (03/16/2021 12:58 PM PAN DUMPER) P athologist Signature Hemoglobin 8.3 (L) 11.6 - 15.0 03/16/2021 MKTO g/dL 1:27 PM PAN DUMPER Specimen Anatomical Collection Method Collection Time Receive d Time (Source) Location / / Volume Laterality Blood (Blood, 03/16/2021 12:58 03/16/2021 1:04 Venous) PM PAN DUMPER PM PAN DUMPER Lizet Navarro M.D. LAB BLOOD ADD-ON Performing Organization Address City/State/ZIP Code Phon e Number [facility]- [address] [place] [phone] [facility] [place] [address] Transfuse Red Blood Cells : (03/16/2021 11:58 AM PAN DUMPER) Lizet Navarro M.D. BLOOD TRANSFUSION ORDERABLES Transfuse Red Blood Cells : , 2 Units (03/16/2021 11:58 AM PAN DUMPER) Lizet Navarro M.D. BLOOD TRANSFUSION ORDERABLES Transfuse Red Blood Cells : (03/16/2021 11:08 AM PAN DUMPER) Lizet Navarro M.D. BLOOD TRANSFUSION ORDERABLES Transfuse Fresh Frozen Plasma :Bleeding with altered coagulation; 180 mL/hr (03/16/2021 10:21 AM PAN DUMPER) Lizet Navarro M.D. BLOOD TRANSFUSION ORDERABLES Transfuse Fresh Frozen Plasma :Bleeding with altered coagulation; 180 mL/hr, 2 Units (03/16/2021 10:21 AM PAN DUMPER) Lizet Navarro M.D. BLOOD TRANSFUSION ORDERABLES Transfuse Fresh Frozen Plasma :Bleeding with altered coagulation; 180 mL/hr (03/16/2021 10:20 AM PAN DUMPER) Lizet Navarro M.D. BLOOD TRANSFUSION ORDERABLES Transfuse Red Blood Cells : (03/16/2021 9:06 AM PAN DUMPER) Nola Huitron APRN, C.N.P., M.S.N. BLOOD TRANSFUSI ON ORDERABLES Transfuse Red Blood Cells : , 1 Units (03/16/2021 9:06 AM PAN DUMPER) Nola J Elana CARPENTER FORM, C.N.P., M.S.N. BLOOD TRANSFUSI ON ORDERABLES (ABNORMAL) Fibrinogen (03/16/2021 7:32 AM PAN DUMPER) P athologist Signature Fibrinogen, P 135 (L) 200 - 393 03/16/2021 MKTO mg/dL 7:56 AM PAN DUMPER Specimen Anatomical Collection Method Collection Time Receive d Time (Source) Location / / Volume Laterality Blood (Blood, 03/16/2021 7:32 AM 03/16/20 7:40 Venous) PAN DUMPER AM PAN DUMPER Tariq CheryB.S. LAB BLOOD ADD-ON Performing Organization Address [facility] Phon e Number [facility]- [address] [place] [phone] [place] [address] (ABNORMAL) APTT (Activated Partial Thromboplastin Time) (03/16/2021 7:32 AM PAN DUMPER) athologist Signature Activated 54 (H) 25 - 37 03/16/2021 MKTO Partial sec 7:53 AM PAN DUMPER Thrombopl Time, P Specimen Anatomical Collection Method Collection Time Receive d Time (Source) Location / / Volume Laterality Blood (Blood, 03/16/2021 7:32 AM 03/16/20 7:40 Venous) PAN DUMPER AM PAN DUMPER Tariq CheryB.S. LAB BLOOD ADD-ON Performing Organization Address City/[facility] Phon e Number [facility]- [address] [place] [phone] [place] [address] [address] (ABNORMAL) Prothrombin Time (PT) (03/16/2021 7:32 AM PAN DUMPER) Patholo gist Method Time Signature Prothrombin 23.4 (H) 9.4 - 12.5 03/16/2021 MKTO Time, P sec 7:51 AM PAN DUMPER INR 2.1 0.9 - 1.1 03/16/2021 MKTO 7:51 AM PAN DUMPER Comment: ----ADDITIONAL INFORMATION---- Standard intensity warfarin therapeutic range: 2.0 to 3.0 ?? High intensity warfarin therapeutic rang e: 2.5 to 3.5 Specimen Anatomical Collection Method Collection Time Receive d Time (Source) Location / / Volume Laterality Blood (Blood, 03/16/2021 7:32 AM 03/16/20 7:40 Venous) PAN DUMPER AM PAN DUMPER Tariq CheryB.S. LAB BLOOD ADD-ON Performing Organization Address City/State/ZIP Code Phon e Number [facility]- [address] [place] [phone] [place] [address] (ABNORMAL) Hemoglobin (03/16/2021 7:31 AM PAN DUMPER) P athologist Signature Hemoglobin 5.3 (CL) 11.6 - 15.0 03/16/2021 MKTO g/dL 7:57 AM PAN DUMPER Specimen Anatomical Collection Method Collection Time Receive d Time (Source) Location / / Volume Laterality Blood (Blood, 03/16/2021 7:31 AM 03/16/20 7:40 Venous) PAN DUMPER AM PAN DUMPER Tariq CheryB.S. LAB BLOOD ADD-ON Performing Organization Address City/[facility]/ZIP Code Phon e Number [facility]- [address] [place] [phone] [place] [address] Testing Location (03/16/2021 5:44 AM PAN DUMPER) P athologist Signature Testing [facility] DEFAULT 03/16/2021 MKTO Location 5:50 AM PAN DUMPER Specimen Anatomical Collection Method Collection Time Receive d Time (Source) Location / / Volume Laterality Blood 03/16/2021 5:44 AM 5:49 PAN DUMPER AM PAN DUMPER Tariq CheryB.S. LAB BLOOD BANK TEST ORDERABL ES Performing Organization Address City/[facility]/ZIP Code Phon e Number [facility]- [address] [place] [phone] [place] [address] Type and Screen (with reflex Antibody ID) (03/16/2021 5:44 AM PAN DUMPER) Patholo gist Method Time Signature ABO Group B 03/16/2021 MKTO 6:49 AM PAN DUMPER Rh Type POS 03/16/2021 MKTO 6:49 AM PAN DUMPER Antibody Screen NEG 03/16/2021 MKTO 6:49 AM PAN DUMPER Type & Screen 03/19/2021 03/16/2021 MKTO Expiration 23:59 6:49 AM PAN DUMPER ELXM Eligible Y 03/16/2021 MKTO 6:49 AM PAN DUMPER Specimen Anatomical Collection Method Collection Time Receive d Time (Source) Location / / Volume Laterality Blood (Blood, 03/16/2021 5:44 AM 03/16/20 5:49 Venous) PAN DUMPER AM PAN DUMPER Tariq Santillan LAB BLOOD BANK TEST ORDERABL ES Performing Organization Address City/[facility] Phon e Number [address] [phone] [place] [address] Glucose, POCT (03/16/2021 5:43 AM PAN DUMPER) P athologist Signature Glucose, POCT, 121 70 - 140 03/16/2021 MKTO B mg/dL 5:43 AM PAN DUMPER Specimen Anatomical Collection Method Collection Time Receive d Time (Source) Location / / Volume Laterality Blood 03/16/2021 5:43 AM 5:57 PAN DUMPER AM PAN DUMPER Generic Rals LAB POCT ORDERABLES-MANUAL Performing Organization Address City/[facility] Phon e Number [address] [phone] [place] [address] [address] Transfuse Fresh Frozen Plasma :Bleeding with altered coagulation; 180 mL/hr (03/16/2021 5:00 AM PAN DUMPER) Lizet Navarro M.D. BLOOD TRANSFUSION ORDERABLES Transfuse Fresh Frozen Plasma :Bleeding with altered coagulation; 180 mL/hr, 2 Units (03/16/2021 5:00 AM PAN DUMPER) Lizet Navarro M.D. BLOOD TRANSFUSION ORDERABLES (ABNORMAL) Calcium, Ionized (03/16/2021 4:57 AM PAN DUMPER) P athologist Signature Calcium, 4.49 (L) 4.65 - 03/16/2021 MKTO Ionized, B 5.30 mg/dL 5:19 AM PAN DUMPER Specimen Anatomical Collection Method Collection Time Receive d Time (Source) Location / / Volume Laterality Blood 03/16/2021 4:57 AM 5:05 PAN DUMPER AM PAN DUMPER Nola Huitron APRN, C.N.P., M.S.N. LAB BLOOD NON A DD-ON Performing Organization Address City/[facility] Phon e Number [facility]- [address] [place] [phone] [place] [address] [address] (ABNORMAL) pH (03/16/2021 4:57 AM PAN DUMPER) athologist Signature pH 7.49 (H) 7.35 - 7.45 03/16/2021 MKTO pH 5:19 AM PAN DUMPER Specimen Anatomical Collection Method Collection Time Receive d Time (Source) Location / / Volume Laterality Blood 03/16/2021 4:57 AM 5:05 PAN DUMPER AM PAN DUMPER Katrin Thomas APRN.N.Shanita., M.S.N. LAB HISTORICAL ORDERS Performing Organization Address [facility] Phon e Number [facility]- [address] [place] [phone] [place] [address] [address] (ABNORMAL) CBC without Differential (03/16/2021 4:21 AM PAN DUMPER) [facility] Method Time Signature Hemoglobin 6.2 (L) 11.6 - 03/16/2021 MKTO 15.0 g/dL 4:54 AM PAN DUMPER Hematocrit 18.3 (L) 35.5 - 03/16/2021 MKTO 44.9 % 4:54 AM PAN DUMPER Erythrocytes 1.95 (L) 3.92 - 03/16/2021 MKTO 5.13 4:54 AM PAN DUMPER x10(12)/L MCV 93.8 78.2 - 03/16/2021 MKTO 97.9 fL 4:54 AM PAN DUMPER RBC Distrib Width 20.1 (H) 12.2 - 03/16/2021 MKTO 16.1 % 4:54 AM PAN DUMPER Platelet Count 80 (L) 157 - 371 03/16/2021 MKTO x10(9)/L 4:54 AM PAN DUMPER Leukocytes 6.3 3.4 - 9.6 03/16/2021 MKTO x10(9)/L 4:54 AM PAN DUMPER Specimen Anatomical Collection Method Collection Time Receive d Time (Source) Location / / Volume Laterality Blood (Blood, 03/16/2021 4:21 AM 03/16/20 4:30 Venous) PAN DUMPER AM PAN DUMPER Nola Huitron APRN C.N.P., M.S.N. LAB BLOOD ADD-O N Performing Organization Address City/State/ZIP Code Phon e Number [facility]- [address] [place] [address] [place] [address] [address] (ABNORMAL) Comprehensive Metabolic Panel (03/16/2021 4:21 AM PAN DUMPER) Analysis Performed At Patho logist Time Signature Potassium, P 3.6 3.6 - 5.2 03/16/2021 MKTO mmol/L 4:53 AM PAN DUMPER Sodium, P 140 135 - 145 03/16/2021 MKTO mmol/L 4:53 AM PAN DUMPER Chloride, P 109 (H) 98 - 107 03/16/2021 MKTO mmol/L 4:53 AM PAN DUMPER Bicarbonate, P 20 (L) 22 - 29 03/16/2021 MKTO mmol/L 4:53 AM PAN DUMPER Anion Gap, P 11 7 - 15 03/16/2021 MKTO 4:53 AM PAN DUMPER BUN (Blood Urea 5 (L) 6 - 21 03/16/2021 MKTO Nitrogen), P mg/dL 4:53 AM PAN DUMPER Creatinine 0.40 (L) 0.59 - 03/16/2021 MKTO 1.04 mg/dL 4:53 AM PAN DUMPER eGFR-Black/Afri >90 >=60 03/16/2021 MKTO can Bahamian mL/min/BSA 5:29 AM PAN DUMPER Comment: ----ADDITIONAL INFORMATION---- Estimated GFR calculated using the 2009 CKD_EPI creatinine equation. eGFR Non-Black/ >90 >=60 mL/min/BSA 03/16/2021 5:29 AM PAN DUMPER MKTO Comment: ----ADDITIONAL INFORMATION---- Estimated GFR calculated using the 2009 CKD_EPI creatinine equation. Calcium, Total, P 8.9 8.6 - 10.0 mg/dL 03/16/2021 4:53 AM PAN DUMPER MKTO Glucose, P 135 70 - 140 mg/dL 03/16/2021 4:53 AM PAN DUMPER M KTO Protein, Total, P 5.2 (L) 6.3 - 7.9 g/dL 03/16/2021 4:53 A M PAN DUMPER MKTO Albumin, P 4.0 3.5 - 5.0 g/dL 03/16/2021 4:53 AM PAN DUMPER M KTO Aspartate Aminotransferase 33 8 - 43 U/L 03/16/2021 4 :53 AM PAN DUMPER MKTO (AST), P Alkaline Phosphatase, P 43 35 - 104 U/L 03/16/2021 4: 53 AM PAN DUMPER MKTO Alanine Aminotransferase 8 7 - 45 U/L 03/16/2021 4:5 3 AM PAN DUMPER MKTO (ALT), P Bilirubin, Total, P 5.1 (H) <=1.2 mg/dL 03/16/2021 4:53 AM PAN DUMPER MKTO Specimen Anatomical Collection Method Collection Time Receive d Time (Source) Location / / Volume Laterality Blood (Blood, 03/16/2021 4:21 AM 03/16/20 4:53 Venous) PAN DUMPER AM PAN DUMPER Nola Huitron APRN C.N.P., M.S.N. LAB BLOOD ADD-O N Performing Organization Address City/State/ZIP Code Phon e Number [facility]- [address] [place] [phone] [facility] [place] [address] (ABNORMAL) Phosphorus Inorganic (03/16/2021 4:21 AM PAN DUMPER) P athologist Signature Phosphorus 2.0 (L) 2.5 - 4.5 03/16/2021 MKTO (Inorganic), P mg/dL 4:53 AM PAN DUMPER Specimen Anatomical Collection Method Collection Time Receive d Time (Source) Location / / Volume Laterality Blood (Blood, 03/16/2021 4:21 AM 03/16/20 4:53 Venous) PAN DUMPER AM PAN DUMPER Nola Huitron APRN, C.N.P., M.S.N. LAB BLOOD ADD-O N Performing Organization Address City/[facility] Phon e Number [facility]- [address] [place] [phone] [place] [address] Magnesium (03/16/2021 4:21 AM PAN DUMPER) P athologist Signature Magnesium, P 1.7 1.7 - 2.3 03/16/2021 MKTO mg/dL 4:53 AM PAN DUMPER Specimen Anatomical Collection Method Collection Time Receive d Time (Source) Location / / Volume Laterality Blood (Blood, 03/16/2021 4:21 AM 03/16/20 4:53 Venous) PAN DUMPER AM PAN DUMPER Nola Huitron APRN, C.N.P., M.S.N. LAB BLOOD ADD-O N Performing Organization Address [facility] Phon e Number [address] [phone] [place] [address] Transfuse Pooled Cryoprecipitate:Bleeding with Fibrinogen deficiency; 180 mL/hr (03/16/2021 3:48 AM PAN DUMPER) Nola Huitron APRN, C.N.P., M.S.N. BLOOD TRANSFUSI ON ORDERABLES Transfuse Pooled Cryoprecipitate:Bleeding with Fibrinogen deficiency; 180 mL/hr (03/16/2021 3:48 AM PAN DUMPER) Nola Huitron APRN, C.N.P., M.S.N. BLOOD TRANSFUSI ON ORDERABLES Transfuse Pooled Cryoprecipitate:Bleeding with Fibrinogen deficiency; 180 mL/hr (03/16/2021 3:17 AM PAN DUMPER) Nola Huitron APRN, C.N.P., M.S.N. BLOOD TRANSFUSI ON ORDERABLES CT Abdomen Pelvis with IV Contrast (03/16/2021 2:36 AM PAN DUMPER) Anatomical Region Laterality Modality Abdomen, Pelvis, Abdominal RST LOS, Abdominal ARZ LOS, N/A Computed Tomography Abdominal FLA LOS Specimen (Source) Anatomical Collection Method Collection Time Re ceived Time Location / / Volume Laterality 03/16/2021 7:41 AM PAN DUMPER Impressions 03/16/2021 7:49 AM PAN DUMPER 1. Newly identified CHF, with associated compressive atelectasis at each lung base. 2. Stable abdominal ascites with no iden tified area of hemorrhage. 3. Newly identified anasarca. 4. Heterogeneous appearance of the liver with splenomegaly, the combination of findings suggestive of hepatic inflammat ion. Clinical correlation is recommended. Narrative 03/16/2021 7:49 AM PAN DUMPER EXAM: CT ABDOMEN PELVIS WITH IV CONTRAST COMPARISON: 03/12/2021 FINDINGS: Lung bases: Bilateral pleural effusions consistent with CHF, with associated compressive atelectasis at each lung bas e. Liver: Mild heterogeneous appearance thr oughout the liver suggesting inflammatory change. No discrete intrahe patic lesion. Gallbladder and Biliary Tree: No evidenc e of cholelithiasis. No biliary dilatation. Spleen: Stable splenomegaly with no intr asplenic lesion. Pancreas: Normal enhancement. No focal l esion or ductal dilatation. Adrenal glands: No focal lesion identifi ed. Kidneys, ureters, and bladder: Normal en hancement. No evidence of hydronephrosis or hydroureter. No suspicious mass lesio n. No renal or ureteral calculi. Bladder catheterized. GI tract: A rectal tube remains in place . There is no bowel obstruction. There are minimally dilated fluid-filled loops of small bowel in the mid abdominal region, nonspecific ileus pattern. Soft tissues: There is stable abdominal ascites. There are no regions of increased attenuation or contrast extrav asation noted on this study to suggest a source of bleeding. Increasing anasarca. Reproductive: Unremarkable. IUD again id entified within the uterus. Bones: Unremarkable for age, with no hailey picious lesion. vRad: ??Findings concordant with tikai ewelina vRad report. Procedure Note Migue Andrews M.D. - 03/16/2021Format ting of this note might be different from the original. EXAM: CT ABDOMEN PELVIS WITH IV CONTRAST COMPARISON: 03/12/2021 FINDINGS: Lung bases: Bilateral pleural effusions consistent with CHF, with associated compressive atelectasis at each lung bas e. Liver: Mild heterogeneous appearance thr oughout the liver suggesting inflammatory change. No discrete intrahe patic lesion. Gallbladder and Biliary Tree: No evidenc e of cholelithiasis. No biliary dilatation. Spleen: Stable splenomegaly with no intr asplenic lesion. Pancreas: Normal enhancement. No focal l esion or ductal dilatation. Adrenal glands: No focal lesion identifi ed. Kidneys, ureters, and bladder: Normal en hancement. No evidence of hydronephrosis or hydroureter. No suspicious mass lesio n. No renal or ureteral calculi. Bladder catheterized. GI tract: A rectal tube remains in place . There is no bowel obstruction. There are minimally dilated fluid-filled loops of small bowel in the mid abdominal region, nonspecific ileus pattern. Soft tissues: There is stable abdominal ascites. There are no regions of increased attenuation or contrast extrav asation noted on this study to suggest a source of bleeding. Increasing anasarca. Reproductive: Unremarkable. IUD again id entified within the uterus. Bones: Unremarkable for age, with no hailey picious lesion. vRad: Findings concordant with prelimina ry vRad report. IMPRESSION: 1. Newly identified CHF, with associated compressive atelectasis at each lung base. 2. Stable abdominal ascites with no iden tified area of hemorrhage. 3. Newly identified anasarca. 4. Heterogeneous appearance of the liver with splenomegaly, the combination of findings suggestive of hepatic inflammat ion. Clinical correlation is recommended. Tariq CheryB.S. IMG CT PROCEDURES Test, POCT, Urine (lab) (03/16/2021 2:11 AM PAN DUMPER) P athologist Signature Negative 03/16/2021 MKTO Test, POCT, U 2:19 AM PAN DUMPER Specimen Anatomical Collection Method Collection Time Receive d Time (Source) Location / / Volume Laterality Urine (Urine, 03/16/2021 2:11 AM 03/16/20 2:11 Clean Catch) PAN DUMPER AM PAN DUMPER Tariq CheryB.S. LAB POCT ORDERABLES - DEVICE Performing Organization Address City/State/ZIP Code Phon e Number [facility]- [address] [place] [phone] [place] [address] (ABNORMAL) Fibrinogen (03/16/2021 1:11 AM PAN DUMPER) P athologist Signature Fibrinogen, P 57 (CL) 200 - 393 03/16/2021 MKTO mg/dL 1:46 AM PAN DUMPER Specimen Anatomical Collection Method Collection Time Receive d Time (Source) Location / / Volume Laterality Blood (Blood, 03/16/2021 1:11 AM 03/16/20 1:15 Venous) PAN DUMPER AM PAN DUMPER Tariq Santoyo.S. LAB BLOOD ADD-ON Performing Organization Address City/[facility]/ZIP Code Phon e Number [facility]- [address] [place] [phone] [place] [address] (ABNORMAL) APTT (Activated Partial Thromboplastin Time) (03/16/2021 1:11 AM PAN DUMPER) P athologist Signature Activated 61 (H) 25 - 37 03/16/2021 MKTO Partial sec 1:29 AM PAN DUMPER Thrombopl Time, P Specimen Anatomical Collection Method Collection Time Receive d Time (Source) Location / / Volume Laterality Blood (Blood, 03/16/2021 1:11 AM 03/16/20 1:15 Venous) PAN DUMPER AM PAN DUMPER Tariq CheryB.S. LAB BLOOD ADD-ON Performing Organization Address City/State/ZIP Code Phon e Number [facility]- [address] [place] [phone] [place] [address] (ABNORMAL) Prothrombin Time (PT) (03/16/2021 1:11 AM PAN DUMPER) Patholo gist Method Time Signature Prothrombin 26.9 (H) 9.4 - 12.5 03/16/2021 MKTO Time, P sec 1:45 AM PAN DUMPER INR 2.4 0.9 - 1.1 03/16/2021 MKTO 1:45 AM PAN DUMPER Comment: ----ADDITIONAL INFORMATION---- Standard intensity warfarin therapeutic range: 2.0 to 3.0 ?? High intensity warfarin therapeutic rang e: 2.5 to 3.5 Specimen Anatomical Collection Method Collection Time Receive d Time (Source) Location / / Volume Laterality Blood (Blood, 03/16/2021 1:11 AM 03/16/20 1:15 Venous) PAN DUMPER AM PAN DUMPER Tariq DanielSSuma LAB BLOOD ADD-ON Performing Organization Address City/[facility] Phon e Number [facility]- [address] [place] [phone] [place] [address] System [address] Potassium (03/16/2021 12:08 AM PAN DUMPER) P athologist Signature Potassium, P 3.9 3.6 - 5.2 03/16/2021 MKTO mmol/L 12:33 AM PAN DUMPER Specimen Anatomical Collection Method Collection Time Receive d Time (Source) Location / / Volume Laterality Blood (Blood, 03/16/2021 12:08 03/16/2021 Venous) AM PAN DUMPER 12:33 AM PAN DUMPER Tariq Santoyo.S. LAB BLOOD ADD-ON Performing Organization Address [facility] Phon e Number [facility]- [address] [place] [phone] [place] [address] (ABNORMAL) Hemoglobin (03/16/2021 12:08 AM PAN DUMPER) P athologist Signature Hemoglobin 7.3 (L) 11.6 - 15.0 03/16/2021 MKTO g/dL 12:26 AM PAN DUMPER Specimen Anatomical Collection Method Collection Time Receive d Time (Source) Location / / Volume Laterality Blood (Blood, 03/16/2021 12:08 03/16/2021 Venous) AM PAN DUMPER 12:26 AM PAN DUMPER Nola Huitron APRN C.N.P., M.S.N. LAB BLOOD ADD-O N Performing Organization Address City/[facility]/ZIP Code Phon e Number [facility]- [address] [place] [phone] [place] [address] (ABNORMAL) Glucose, POCT (03/15/2021 11:33 PM PAN DUMPER) athologist Signature Glucose, POCT, 160 (H) 70 - 140 03/15/2021 MKTO B mg/dL 11:33 PM PAN DUMPER Specimen Anatomical Collection Method Collection Time Receive d Time (Source) Location / / Volume Laterality Blood 03/15/2021 11:33 03/16/2021 PM PAN DUMPER 12:15 AM PAN DUMPER Generic Rals LAB POCT ORDERABLES-MANUAL Performing Organization Address City/[facility] Phon e Number [address] [phone] [place] [address] Transfuse Red Blood Cells : (03/15/2021 11:07 PM PAN DUMPER) Nola Huitron APRN, C.N.P., M.S.N. BLOOD TRANSFUSI ON ORDERABLES Transfuse Red Blood Cells : , 1 Units (03/15/2021 11:07 PM PAN DUMPER) Nola Huitron APRN, C.N.P., M.S.N. BLOOD TRANSFUSI ON ORDERABLES (ABNORMAL) Hemoglobin (03/15/2021 8:11 PM PAN DUMPER) athologist Signature Hemoglobin 6.6 (L) 11.6 - 15.0 03/15/2021 MKTO g/dL 8:27 PM PAN DUMPER Specimen Anatomical Collection Method Collection Time Receive d Time (Source) Location / / Volume Laterality Blood (Blood, 03/15/2021 8:11 PM 03/15/20 8:23 Venous) PAN DUMPER PM PAN DUMPER Nola Huitron APRN, C.N.P., M.S.N. LAB BLOOD ADD-O N Performing Organization Address City/[facility] Phon e Number [address] [address] [place] [address] Transfuse Fresh Frozen Plasma :Bleeding with altered coagulation; 180 mL/hr (03/15/2021 6:20 PM PAN DUMPER) Jailene Barnhart RDN, TALI BLOOD TRANSFUSION ORDERABLES (ABNORMAL) Hemoglobin (03/15/2021 4:52 PM PAN DUMPER) athologist Signature Hemoglobin 7.6 (L) 11.6 - 15.0 03/15/2021 MKTO g/dL 4:57 PM PAN DUMPER Specimen Anatomical Collection Method Collection Time Receive d Time (Source) Location / / Volume Laterality Blood (Blood, 03/15/2021 4:52 PM 03/15/20 4:55 Venous) PAN DUMPER PM PAN DUMPER Lizet Navarro M.D. LAB BLOOD ADD-ON Performing Organization Address City/[facility] Phon e Number [address] [address] [place] [address] (ABNORMAL) Hematocrit (03/15/2021 4:52 PM PAN DUMPER) athologist Signature Hematocrit 22.4 (L) 35.5 - 44.9 03/15/2021 MKTO % 4:57 PM PAN DUMPER Specimen Anatomical Collection Method Collection Time Receive d Time (Source) Location / / Volume Laterality Blood (Blood, 03/15/2021 4:52 PM 03/15/20 4:55 Venous) PAN DUMPER PM PAN DUMPER Lizet Navarro M.D. LAB BLOOD ADD-ON Performing Organization Address City/[facility] Phon e Number [address] [address] [place] [address] Transfuse Fresh Frozen Plasma :Bleeding with altered coagulation; 180 mL/hr (03/15/2021 3:34 PM PAN DUMPER) Lizet Navarro M.D. BLOOD TRANSFUSION ORDERABLES (ABNORMAL) Phosphorus Inorganic (03/15/2021 2:29 PM PAN DUMPER) athologist Signature Phosphorus 2.3 (L) 2.5 - 4.5 03/15/2021 MKTO (Inorganic), P mg/dL 5:27 PM PAN DUMPER Specimen Anatomical Collection Method Collection Time Receive d Time (Source) Location / / Volume Laterality Blood (Blood, 03/15/2021 2:29 PM 03/15/20 5:12 Venous) PAN DUMPER PM PAN DUMPER Lizet Navarro M.D. LAB BLOOD ADD-ON Performing Organization Address City/State/ZIP Code Phon e Number [facility]- [address] [place] [phone] [facility] [place] [address] System in [address] Magnesium (03/15/2021 2:29 PM PAN DUMPER) P athologist Signature Magnesium, P 1.8 1.7 - 2.3 03/15/2021 MKTO mg/dL 5:27 PM PAN DUMPER Specimen Anatomical Collection Method Collection Time Receive d Time (Source) Location / / Volume Laterality Blood (Blood, 03/15/2021 2:29 PM 03/15/20 5:12 Venous) PAN DUMPER PM PAN DUMPER Lizet Navarro M.D. LAB BLOOD ADD-ON Performing Organization Address City/[facility]/ZIP Code Phon e Number [facility]- [address] [place] [phone] [facility] [place] [address] System [place] [address] (ABNORMAL) Hemoglobin (03/15/2021 2:29 PM PAN DUMPER) P athologist Signature Hemoglobin 7.9 (L) 11.6 - 15.0 03/15/2021 MKTO g/dL 2:50 PM PAN DUMPER Specimen Anatomical Collection Method Collection Time Receive d Time (Source) Location / / Volume Laterality Blood (Blood, 03/15/2021 2:29 PM 03/15/20 2:43 Venous) PAN DUMPER PM PAN DUMPER Lizet Navarro M.D. LAB BLOOD ADD-ON Performing Organization Address City/State/ZIP Code Phon e Number [facility]- [address] [place] [phone] [facility] [place] [address] [address] [place] [address] (ABNORMAL) Hematocrit (03/15/2021 2:29 PM PAN DUMPER) P athologist Signature Hematocrit 23.3 (L) 35.5 - 44.9 03/15/2021 MKTO % 2:50 PM PAN DUMPER Specimen Anatomical Collection Method Collection Time Receive d Time (Source) Location / / Volume Laterality Blood (Blood, 03/15/2021 2:29 PM 03/15/20 2:43 Venous) PAN DUMPER PM PAN DUMPER Lizet Navarro M.D. LAB BLOOD ADD-ON Performing Organization Address City/State/ZIP Code Phon e Number [facility]- [address] [place] [phone] [place] [address] [place] [address] System [place] [address] (ABNORMAL) Basic Metabolic Panel (03/15/2021 2:29 PM PAN DUMPER) Analysis Performed At Patho logist Time Signature Potassium, P 3.2 (L) 3.6 - 5.2 03/15/2021 MKTO mmol/L 3:18 PM PAN DUMPER Sodium, P 138 135 - 145 03/15/2021 [facility] mmol/L 3:18 PM PAN DUMPER Chloride, P 105 98 - 107 03/15/2021 [facility] mmol/L 3:18 PM PAN DUMPER Bicarbonate, P 19 (L) 22 - 29 03/15/2021 [facility] mmol/L 3:18 PM PAN DUMPER Anion Gap, P 14 7 - 15 03/15/2021 MKTO 3:18 PM PAN DUMPER BUN (Blood Urea 8 6 - 21 03/15/2021 MKTO Nitrogen), P mg/dL 3:18 PM PAN DUMPER Creatinine 0.49 (L) 0.59 - 03/15/2021 MKTO 1.04 mg/dL 3:18 PM PAN DUMPER eGFR-Black/Afri >90 >=60 03/15/2021 MKTO can Bahamian mL/min/BSA 3:18 PM PAN DUMPER Comment: ----ADDITIONAL INFORMATION---- Estimated GFR calculated using the 2009 CKD_EPI creatinine equation. eGFR Non-Black/ >90 >=60 mL/min/BSA 03/15/2021 3:18 PM PAN DUMPER MKTO Comment: ----ADDITIONAL INFORMATION---- Estimated GFR calculated using the 2009 CKD_EPI creatinine equation. Calcium, Total, P 9.0 8.6 - 10.0 mg/dL 03/15/2021 3:18 PM PAN DUMPER MKTO Glucose, P 125 70 - 140 mg/dL 03/15/2021 3:18 PM PAN DUMPER M O Specimen Anatomical Collection Method Collection Time Receive d Time (Source) Location / / Volume Laterality Blood (Blood, 03/15/2021 2:29 PM 03/15/20 2:43 Venous) PAN DUMPER PM PAN DUMPER Lizet Navarro M.D. LAB BLOOD ADD-ON Performing Organization Address City/State/[facility] Phon e Number [facility]- [address] [place] [phone] [place] [address] Transfuse Red Blood Cells : (03/15/2021 1:16 PM PAN DUMPER) Josep Jennings M.D. BLOOD TRANSFUSION ORDERABLES Transfuse Red Blood Cells : , 1 Units (03/15/2021 1:16 PM PAN DUMPER) Josep Jennings M.D. BLOOD TRANSFUSION ORDERABLES Glucose, POCT (03/15/2021 11:57 AM PAN DUMPER) P athologist Signature Glucose, POCT, 119 70 - 140 03/15/2021 MKTO B mg/dL 11:57 AM PAN DUMPER Specimen Anatomical Collection Method Collection Time Receive d Time (Source) Location / / Volume Laterality Blood 03/15/2021 11:57 03/15/2021 AM PAN DUMPER 12:08 PM PAN DUMPER Generic Rals LAB POCT ORDERABLES-MANUAL Performing Organization Address City/State/[facility] Phon e Number [facility]- [address] [place] [phone] [place] [address] System [place] [address] Glucose, POCT (03/15/2021 6:14 AM PAN DUMPER) P athologist Signature Glucose, POCT, 116 70 - 140 03/15/2021 MKTO B mg/dL 6:14 AM PAN DUMPER Specimen Anatomical Collection Method Collection Time Receive d Time (Source) Location / / Volume Laterality Blood 03/15/2021 6:14 AM PAN DUMPER 10:34 AM PAN DUMPER Generic Rals LAB POCT ORDERABLES-MANUAL Performing Organization Address City/[facility]/ZIP Code Phon e Number [facility]- [address] [place] [phone] [place] [address] Magnesium (03/15/2021 4:18 AM PAN DUMPER) P athologist Signature Magnesium, P 1.7 1.7 - 2.3 03/15/2021 MKTO mg/dL 5:00 AM PAN DUMPER Specimen Anatomical Collection Method Collection Time Receive d Time (Source) Location / / Volume Laterality Blood (Blood, 03/15/2021 4:18 AM 03/15/20 4:35 Venous) PAN DUMPER AM PAN DUMPER Nola Huitron APRN, C.N.P., M.S.N. LAB BLOOD ADD-O N Performing Organization Address [facility]/ZIP Code Phon e Number [facility]- [address] [place] [phone] [place] [address] System [place] [address] (ABNORMAL) Phosphorus Inorganic (03/15/2021 4:18 AM PAN DUMPER) P athologist Signature Phosphorus 2.1 (L) 2.5 - 4.5 03/15/2021 MKTO (Inorganic), P mg/dL 5:00 AM PAN DUMPER Specimen Anatomical Collection Method Collection Time Receive d Time (Source) Location / / Volume Laterality Blood (Blood, 03/15/2021 4:18 AM 03/15/20 4:35 Venous) PAN DUMPER AM PAN DUMPER Katrin Thomas APRN.N.P., M.S.N. LAB BLOOD ADD-O N Performing Organization Address City/[facility]/ZIP Code Phon e Number [facility]- [address] [place] [phone] [place] [address] (ABNORMAL) Prothrombin Time (PT) (03/15/2021 4:18 AM PAN DUMPER) Patholo gist Method Time Signature Prothrombin 26.3 (H) 9.4 - 12.5 03/15/2021 MKTO Time, P sec 4:58 AM PAN DUMPER INR 2.3 0.9 - 1.1 03/15/2021 MKTO 4:58 AM PAN DUMPER Comment: ----ADDITIONAL INFORMATION---- Standard intensity warfarin therapeutic range: 2.0 to 3.0 ?? High intensity warfarin therapeutic rang e: 2.5 to 3.5 Specimen Anatomical Collection Method Collection Time Receive d Time (Source) Location / / Volume Laterality Blood (Blood, 03/15/2021 4:18 AM 03/15/20 4:35 Venous) PAN DUMPER AM PAN DUMPER Nola Huitron APRN C.N.P., M.S.N. LAB BLOOD ADD-O N Performing Organization Address City/State/ZIP Code Phon e Number [facility]- [address] [place] [address] [place] [address] System in [place] [address] [place] [address] (ABNORMAL) Comprehensive Metabolic Panel (03/15/2021 4:18 AM PAN DUMPER) Analysis Performed At Patho logist Time Signature Potassium, P 2.7 (L) 3.6 - 5.2 03/15/2021 MKTO mmol/L 5:00 AM PAN DUMPER Sodium, P 140 135 - 145 03/15/2021 MKTO mmol/L 5:00 AM PAN DUMPER Chloride, P 107 98 - 107 03/15/2021 MKTO mmol/L 5:00 AM PAN DUMPER Bicarbonate, P 20 (L) 22 - 29 03/15/2021 MKTO mmol/L 5:00 AM PAN DUMPER Anion Gap, P 13 7 - 15 03/15/2021 MKTO 5:00 AM PAN DUMPER BUN (Blood Urea 11 6 - 21 03/15/2021 MKTO Nitrogen), P mg/dL 5:00 AM PAN DUMPER Creatinine 0.55 (L) 0.59 - 03/15/2021 MKTO 1.04 mg/dL 5:00 AM PAN DUMPER eGFR-Black/Afri >90 >=60 03/15/2021 MKTO can Bahamian mL/min/BSA 5:00 AM PAN DUMPER Comment: ----ADDITIONAL INFORMATION---- Estimated GFR calculated using the 2009 CKD_EPI creatinine equation. eGFR Non-Black/ >90 >=60 mL/min/BSA 03/15/2021 5:00 AM PAN DUMPER MKTO Comment: ----ADDITIONAL INFORMATION---- Estimated GFR calculated using the 2009 CKD_EPI creatinine equation. Calcium, Total, P 9.1 8.6 - 10.0 mg/dL 03/15/2021 5:00 AM PAN DUMPER MKTO Glucose, P 127 70 - 140 mg/dL 03/15/2021 5:00 AM PAN DUMPER M KTO Protein, Total, P 5.7 (L) 6.3 - 7.9 g/dL 03/15/2021 5:00 A M PAN DUMPER MKTO Albumin, P 4.3 3.5 - 5.0 g/dL 03/15/2021 5:00 AM PAN DUMPER M KTO Aspartate Aminotransferase 38 8 - 43 U/L 03/15/2021 5 :00 AM PAN DUMPER MKTO (AST), P Alkaline Phosphatase, P 50 35 - 104 U/L 03/15/2021 5: 00 AM PAN DUMPER MKTO Alanine Aminotransferase 9 7 - 45 U/L 03/15/2021 5:0 0 AM PAN DUMPER MKTO (ALT), P Bilirubin, Total, P 5.6 (H) <=1.2 mg/dL 03/15/2021 5:00 AM PAN DUMPER MKTO Specimen Anatomical Collection Method Collection Time Receive d Time (Source) Location / / Volume Laterality Blood (Blood, 03/15/2021 4:18 AM 03/15/20 4:35 Venous) PAN DUMPER AM PAN DUMPER Nola Huitron APRN, C.N.P., M.S.N. LAB BLOOD ADD-O N Performing Organization Address City/State/ZIP Code Phon e Number [facility]- [address] [place] [phone] [facility] [place] [address] (ABNORMAL) CBC without Differential (03/15/2021 4:18 AM PAN DUMPER) [facility] gist Method Time Signature Hemoglobin 6.9 (L) .6 - 03/15/2021 MKTO 15.0 g/dL 5:00 AM PAN DUMPER Hematocrit 20.5 (L) 35.5 - 03/15/2021 MKTO 44.9 % 5:00 AM PAN DUMPER Erythrocytes 2.11 (L) 3.92 - 03/15/2021 MKTO 5.13 5:00 AM PAN DUMPER x10(12)/L MCV 97.2 78.2 - 03/15/2021 MKTO 97.9 fL 5:00 AM PAN DUMPER RBC Distrib Width 22.5 (H) 12.2 - 03/15/2021 MKTO 16.1 % 5:00 AM PAN DUMPER Platelet Count 86 (L) 157 - 371 03/15/2021 MKTO x10(9)/L 5:00 AM PAN DUMPER Leukocytes 6.3 3.4 - 9.6 03/15/2021 MKTO x10(9)/L 5:00 AM PAN DUMPER Specimen Anatomical Collection Method Collection Time Receive d Time (Source) Location / / Volume Laterality Blood (Blood, 03/15/2021 4:18 AM 03/15/20 4:35 Venous) PAN DUMPER AM PAN DUMPER Katrin Thomas APRN.N.P., M.S.N. LAB BLOOD ADD-O N Performing Organization Address City/[facility] Phon e Number [facility]- [address] [place] [phone] [place] [address] Glucose, POCT (03/14/2021 11:43 PM PAN DUMPER) athologist Signature Glucose, POCT, 122 70 - 140 03/14/2021 MKTO B mg/dL 11:43 PM PAN DUMPER Specimen Anatomical Collection Method Collection Time Receive d Time (Source) Location / / Volume Laterality Blood 03/14/2021 11:43 03/15/2021 PM PAN DUMPER 12:29 AM PAN DUMPER Generic Rals LAB POCT ORDERABLES-MANUAL Performing Organization Address [facility] Phon e Number [address] [address] [place] [address] Glucose, POCT (03/14/2021 6:25 PM PAN DUMPER) athologist Signature Glucose, POCT, 140 70 - 140 03/14/2021 MKTO B mg/dL 6:25 PM PAN DUMPER Specimen Anatomical Collection Method Collection Time Receive d Time (Source) Location / / Volume Laterality Blood 03/14/2021 6:25 PM 7:32 PAN DUMPER PM PAN DUMPER Generic Rals LAB POCT ORDERABLES-MANUAL Performing Organization Address City/[facility]/ZIP [place] Phon e Number [facility]- [facility] [place] [address] [place] [address] System in [address] Glucose, POCT (03/14/2021 11:32 AM PAN DUMPER) P athologist Signature Glucose, POCT, 120 70 - 140 03/14/2021 MKTO B mg/dL 11:32 AM PAN DUMPER Specimen Anatomical Collection Method Collection Time Receive d Time (Source) Location / / Volume Laterality Blood 03/14/2021 11:32 03/14/2021 2:20 AM PAN DUMPER PM PAN DUMPER Generic Rals LAB POCT ORDERABLES-MANUAL Performing Organization Address City/[facility] Phon e Number [facility]- [address] [place] [phone] [place] [address] System in [address] Patient Status (03/14/2021 11:00 AM PAN DUMPER) P athologist Signature FIO2 0.30 0.21=AIR 03/14/2021 11:19 MKTO AM PAN DUMPER Specimen Anatomical Collection Method Collection Time Receive d Time (Source) Location / / Volume Laterality Blood 03/14/2021 11:00 03/14/2021 AM PAN DUMPER 11:14 AM PAN DUMPER Lizet Navarro M.D. LAB BLOOD NON ADD-ON Performing Organization Address City/[facility]/ZIP [place] Phon e Number [facility]- [address] [place] [address] [place] [address] [place] [address] (ABNORMAL) Blood Gas with Coox, Arterial (03/14/2021 11:00 AM PAN DUMPER) Patholo gist Method Time Signature P O2 120 (H) 83 - 108 03/14/2021 MKTO mm Hg 11:19 AM PAN DUMPER P CO2 33 32 - 45 03/14/2021 MKTO mm Hg 11:19 AM PAN DUMPER pH 7.42 7.35 - 03/14/2021 MKTO 7.45 pH 11:19 AM PAN DUMPER Base Excess -3 (L) -2 - 3 03/14/2021 MKTO mmol/L 11:19 AM PAN DUMPER HCO3 21 (L) 22 - 26 03/14/2021 MKTO mmol/L 11:19 AM PAN DUMPER Hemoglobin, B 7.8 (L) 11.6 - 03/14/2021 MKTO 15.0 g/dL 11:19 AM PAN DUMPER O2Hb 96.7 94.0 - 03/14/2021 MKTO 98.0 % 11:19 AM PAN DUMPER COHb 1.4 <3.0 % 03/14/2021 MKTO 11:19 AM PAN DUMPER MetHb 0.7 <1.5 % 03/14/2021 MKTO 11:19 AM PAN DUMPER CtO2 10.8 (L) 18.0 - 03/14/2021 MKTO 21.0 vol 11:19 AM PAN DUMPER % Arterial Arterial 03/14/2021 MKTO Sample Site Line 11:19 AM PAN DUMPER Specimen Anatomical Collection Method Collection Time Receive d Time (Source) Location / / Volume Laterality Blood (Blood, 03/14/2021 11:00 03/14/2021 Arterial) AM PAN DUMPER 11:14 AM PAN DUMPER Lizet Navarro M.D. LAB BLOOD NON ADD-ON Performing Organization Address City/State/ZIP Code Phon e Number [facility]- [address] [place] [phone] [place] [address] (ABNORMAL) Prothrombin Time (PT) (03/14/2021 9:22 AM PAN DUMPER) [facility] gist Method Time Signature Prothrombin 28.5 (H) 9.4 - 12.5 03/14/2021 MKTO Time, P sec 10:13 AM PAN DUMPER INR 2.5 0.9 - 1.1 03/14/2021 MKTO 10:13 AM PAN DUMPER Comment: ----ADDITIONAL INFORMATION---- Standard intensity warfarin therapeutic range: 2.0 to 3.0 ?? High intensity warfarin therapeutic rang e: 2.5 to 3.5 Specimen Anatomical Collection Method Collection Time Receive d Time (Source) Location / / Volume Laterality Blood (Blood, 03/14/2021 9:22 AM 03/14/20 9:26 Venous) PAN DUMPER AM PAN DUMPER Elizabeth Newsome APRN.S.N., R.N. LAB BLOOD ADD-ON Performing Organization Address City/[facility] Phon e Number [facility]- [address] [place] [phone] [place] [address] System in [address] Glucose, POCT (03/14/2021 6:28 AM PAN DUMPER) P athologist Signature Glucose, POCT, 109 70 - 140 03/14/2021 MKTO B mg/dL 6:28 AM PAN DUMPER Specimen Anatomical Collection Method Collection Time Receive d Time (Source) Location / / Volume Laterality Blood 03/14/2021 6:28 AM 1 6:51 PAN DUMPER AM PAN DUMPER Generic Rals LAB POCT ORDERABLES-MANUAL Performing Organization Address [facility] Phon e Number [facility]- [address] [place] [phone] [place] [address] (ABNORMAL) pH (03/14/2021 5:41 AM PAN DUMPER) P athologist Signature pH 7.48 (H) 7.35 - 7.45 03/14/2021 MKTO pH 5:51 AM PAN DUMPER Specimen Anatomical Collection Method Collection Time Receive d Time (Source) Location / / Volume Laterality Blood 03/14/2021 5:41 AM 1 5:48 PAN DUMPER AM PAN DUMPER Nola Huitron APRN C.N.P., M.S.N. LAB HISTORICAL ORDERS Performing Organization Address City/[facility]/ZIP [place] Phon e Number [address] [address] [place] [address] (ABNORMAL) Calcium, Ionized (03/14/2021 5:41 AM PAN DUMPER) P athologist Signature Calcium, 4.61 (L) 4.65 - 03/14/2021 MKTO Ionized, B 5.30 mg/dL 5:51 AM PAN DUMPER Specimen Anatomical Collection Method Collection Time Receive d Time (Source) Location / / Volume Laterality Blood 03/14/2021 5:41 AM 5:48 PAN DUMPER AM PAN DUMPER Katrin hTomas APRN.N.P., M.S.N. LAB BLOOD NON A DD-ON Performing Organization Address City/[facility] Phon e Number [facility]- [address] [place] [phone] [place] [address] [place] [address] System [facility] [address] [place] [address] Patient Status (03/14/2021 5:41 AM PAN DUMPER) P athologist Signature FIO2 0.30 0.21=AIR 03/14/2021 5:51 MKTO AM PAN DUMPER Specimen Anatomical Collection Method Collection Time Receive d Time (Source) Location / / Volume Laterality Blood 03/14/2021 5:41 AM 5:48 PAN DUMPER AM PAN DUMPER Katrin Thomas APRN.N.P., M.S.N. LAB BLOOD NON A DD-ON Performing Organization Address [facility] Phon e Number [facility]- [address] [place] [phone] [place] [address] [place], [place] [phone] [place] [address] Phosphorus Inorganic (03/14/2021 5:41 AM PAN DUMPER) P athologist Signature Phosphorus 2.8 2.5 - 4.5 03/14/2021 MKTO (Inorganic), P mg/dL 6:11 AM PAN DUMPER Specimen Anatomical Collection Method Collection Time Receive d Time (Source) Location / / Volume Laterality Blood (Blood, 03/14/2021 5:41 AM 03/14/20 5:48 Venous) PAN DUMPER AM PAN DUMPER Katrin Thomas APRN.N.P., M.S.N. LAB BLOOD ADD-O N Performing Organization Address City/[facility]/ZIP Code Phon e Number [facility]- [address] [place] [phone] [place] [address] System in [address] Magnesium (03/14/2021 5:41 AM PAN DUMPER) P athologist Signature Magnesium, P 2.3 1.7 - 2.3 03/14/2021 MKTO mg/dL 6:11 AM PAN DUMPER Specimen Anatomical Collection Method Collection Time Receive d Time (Source) Location / / Volume Laterality Blood (Blood, 03/14/2021 5:41 AM 03/14/20 5:48 Venous) PAN DUMPER AM PAN DUMPER Nola Huitron APRN, C.N.P., M.S.N. LAB BLOOD ADD-O N Performing Organization Address City/State/ZIP Code Phon e Number [facility]- [address] [place] [phone] [place] [address] [place] [address] (ABNORMAL) Blood Gas with Coox, Arterial (03/14/2021 5:41 AM PAN DUMPER) P athologist Signature P O2 146 (H) 83 - 108 03/14/2021 MKTO mm Hg 5:51 AM PAN DUMPER P CO2 32 32 - 45 mm 03/14/2021 MKTO Hg 5:51 AM PAN DUMPER pH 7.43 7.35 - 03/14/2021 MKTO 7.45 pH 5:51 AM PAN DUMPER Base Excess -2 -2 - 3 03/14/2021 MKTO mmol/L 5:51 AM PAN DUMPER HCO3 21 (L) 22 - 26 03/14/2021 MKTO mmol/L 5:51 AM PAN DUMPER Hemoglobin, B 8.0 (L) 11.6 - 03/14/2021 MKTO 15.0 g/dL 5:51 AM PAN DUMPER O2Hb 97.5 94.0 - 03/14/2021 MKTO 98.0 % 5:51 AM PAN DUMPER COHb 1.7 <3.0 % 03/14/2021 MKTO 5:51 AM PAN DUMPER MetHb 0.1 <1.5 % 03/14/2021 MKTO 5:51 AM PAN DUMPER CtO2 11.3 (L) 18.0 - 03/14/2021 MKTO 21.0 vol % 5:51 AM PAN DUMPER Arterial Art Line 03/14/2021 MKTO Sample Site 5:51 AM PAN DUMPER Specimen Anatomical Collection Method Collection Time Receive d Time (Source) Location / / Volume Laterality Blood (Blood, 03/14/2021 5:41 AM 03/14/20 5:48 Arterial) PAN DUMPER AM PAN DUMPER Nola Huitron APRN C.N.P., M.S.N. LAB BLOOD NON A DD-ON Performing Organization Address City/State/ZIP Code Phon e Number [facility]- [address] [place] [phone] [place] [address] [place] [address] System in [place] [address] [place] [address] (ABNORMAL) Basic Metabolic Panel (03/14/2021 5:41 AM PAN DUMPER) P athologist Signature Potassium, P 3.2 (L) 3.6 - 5.2 03/14/2021 MKTO mmol/L 6:11 AM PAN DUMPER Sodium, P 135 135 - 145 03/14/2021 MKTO mmol/L 6:11 AM PAN DUMPER Chloride, P 103 98 - 107 03/14/2021 MKTO mmol/L 6:11 AM PAN DUMPER Bicarbonate, P 19 (L) 22 - 29 03/14/2021 MKTO mmol/L 6:11 AM PAN DUMPER Anion Gap, P 13 7 - 15 03/14/2021 MKTO 6:11 AM PAN DUMPER BUN (Blood Urea 11 6 - 21 03/14/2021 MKTO Nitrogen), P mg/dL 6:11 AM PAN DUMPER Creatinine 0.60 0.59 - 03/14/2021 MKTO 1.04 mg/dL 6:11 AM PAN DUMPER eGFR-Black/Afri >90 >=60 03/14/2021 MKTO can Bahamian mL/min/BSA 6:11 AM PAN DUMPER Comment: ----ADDITIONAL INFORMATION---- Estimated GFR calculated using the 2009 CKD_EPI creatinine equation. eGFR Non-Black/ >90 >=60 mL/min/BSA 03/14/2021 6:11 AM PAN DUMPER MKTO Comment: ----ADDITIONAL INFORMATION---- Estimated GFR calculated using the 2009 CKD_EPI creatinine equation. Calcium, Total, P 8.9 8.6 - 10.0 mg/dL 03/14/2021 6:11 AM PAN DUMPER MKTO Glucose, P 124 70 - 140 mg/dL 03/14/2021 6:11 AM PAN DUMPER M KTO Specimen Anatomical Collection Method Collection Time Receive d Time (Source) Location / / Volume Laterality Blood (Blood, 03/14/2021 5:41 AM 03/14/20 5:48 Venous) PAN DUMPER AM PAN DUMPER Nola Huitron APRN, C.N.P., M.S.N. LAB BLOOD ADD-O N Performing Organization Address [facility] Phon e Number [facility]- [address] [place] [phone] [facility] [place] [address] (ABNORMAL) CBC without Differential (03/14/2021 5:41 AM PAN DUMPER) [facility] gist Method Time Signature Hemoglobin 7.9 (L) 11.6 - 03/14/2021 MKTO 15.0 g/dL 6:11 AM PAN DUMPER Hematocrit 23.2 (L) 35.5 - 03/14/2021 MKTO 44.9 % 6:11 AM PAN DUMPER Erythrocytes 2.40 (L) 3.92 - 03/14/2021 MKTO 5.13 6:11 AM PAN DUMPER x10(12)/L MCV 96.7 78.2 - 03/14/2021 MKTO 97.9 fL 6:11 AM PAN DUMPER RBC Distrib Width 22.8 (H) 12.2 - 03/14/2021 MKTO 16.1 % 6:11 AM PAN DUMPER Platelet Count 90 (L) 157 - 371 03/14/2021 MKTO x10(9)/L 6:11 AM PAN DUMPER Leukocytes 6.6 3.4 - 9.6 03/14/2021 MKTO x10(9)/L 6:11 AM PAN DUMPER Specimen Anatomical Collection Method Collection Time Receive d Time (Source) Location / / Volume Laterality Blood (Blood, 03/14/2021 5:41 AM 03/14/20 5:48 Venous) PAN DUMPER AM PAN DUMPER Lowell Thomas APRNNLala., M.S.N. LAB BLOOD ADD-O N Performing Organization Address [facility] Phon e Number [facility]- [address] [place] [phone] [place] [address] System [address] (ABNORMAL) Hepatic Function Panel (03/14/2021 5:40 AM PAN DUMPER) [facility] gist Method Time Signature Bilirubin, Total, P 6.0 (H) <=1.2 03/14/2021 MKTO mg/dL 10:49 AM PAN DUMPER Bilirubin, Direct, P 2.5 (H) 0.0 - 0.3 03/14/2021 MKTO mg/dL 10:49 AM PAN DUMPER Aspartate 48 (H) 8 - 43 03/14/2021 MKTO Aminotransferase U/L 10:49 AM PAN DUMPER (AST), P Alanine 10 7 - 45 03/14/2021 MKTO Aminotransferase U/L 10:49 AM PAN DUMPER (ALT), P Alkaline 64 35 - 104 03/14/2021 MKTO Phosphatase, P U/L 10:49 AM PAN DUMPER Albumin, P 4.3 3.5 - 5.0 03/14/2021 MKTO g/dL 10:49 AM PAN DUMPER Protein, Total, P 5.7 (L) 6.3 - 7.9 03/14/2021 MKTO g/dL 10:49 AM PAN DUMPER Specimen Anatomical Collection Method Collection Time Receive d Time (Source) Location / / Volume Laterality Blood (Blood, 03/14/2021 5:40 AM 03/14/20 21 Venous) PAN DUMPER 10:24 AM PAN DUMPER Leslie Kwong M.D. LAB BLOOD ADD-ON Performing Organization Address City/State/ZIP Code Phon e Number [facility]- [address] [place] [phone] [place] [address] System [address] DX Chest Portable 1 View (03/14/2021 4:33 AM PAN DUMPER) Anatomical Region Laterality Modality Chest, Thoracic RST LOS, Thoracic ARZ LOS, Thoracic N/A Digital Radiography FLA LOS Specimen (Source) Anatomical Collection Method Collection Time Re ceived Time Location / / Volume Laterality 03/14/2021 7:56 AM PAN DUMPER Impressions 03/14/2021 7:58 AM PAN DUMPER Persistent areas of bibasilar atelectasis or infiltrate more prominent on the right. Narrative 03/14/2021 7:58 AM PAN DUMPER EXAM: DX CHEST PORTABLE 1 VIEW COMPARISON: 03/13/2021. FINDINGS: Tubes and lines are unchanged in position. Heart size is within normal limits. There are persistent areas of bi basilar atelectasis or infiltrate or prominent on the right. The upper lungs are clear. There are no effusions. There is no significant interval change compar ed with 03/13/2021. Procedure Note Juan Durant Jr., M.D. - 2020 EXAM: DX CHEST PORTABLE 1 VIEW COMPARISON: 03/13/2021. FINDINGS: Tubes and lines are unchanged in position. Heart size is within normal limits. There are persistent areas of bi basilar atelectasis or infiltrate or prominent on the right. The upper lungs are clear. There are no effusions. There is no significant interval change compar ed with 03/13/2021. IMPRESSION: Persistent areas of bibasilar atelectasi s or infiltrate more prominent on the right. Ivan PERALES DIAGNOSTIC IMAGING PROCE [facility] Glucose, POCT (03/14/2021 12:06 AM PAN DUMPER) athologist Signature Glucose, POCT, 116 70 - 140 03/14/2021 MKTO B mg/dL 12:06 AM PAN DUMPER Specimen Anatomical Collection Method Collection Time Receive d Time (Source) Location / / Volume Laterality Blood 03/14/2021 12:06 03/14/2021 AM PAN DUMPER 12:23 AM PAN DUMPER Generic Rals LAB POCT ORDERABLES-MANUAL Performing Organization Address City/State/ZIP Code Phon e Number [facility]- [address] [place] [phone] [facility] [place] [address] (ABNORMAL) Hemoglobin (03/13/2021 6:29 PM PAN DUMPER) athologist Signature Hemoglobin 8.0 (L) 11.6 - 15.0 03/13/2021 MKTO g/dL 6:45 PM PAN DUMPER Specimen Anatomical Collection Method Collection Time Receive d Time (Source) Location / / Volume Laterality Blood (Blood, 03/13/2021 6:29 PM 03/13/20 21 6:40 Venous) PAN DUMPER PM PAN DUMPER Tariq CheryB.SSuma LAB BLOOD ADD-ON Performing Organization Address City/[facility]/ZIP Code Phon e Number [facility]- [address] [place] [phone] [place] [address] [address] Glucose, POCT (03/13/2021 6:16 PM PAN DUMPER) P athologist Signature Glucose, POCT, 112 70 - 140 03/13/2021 MKTO B mg/dL 6:16 PM PAN DUMPER Specimen Anatomical Collection Method Collection Time Receive d Time (Source) Location / / Volume Laterality Blood 03/13/2021 6:16 PM PAN DUMPER 11:28 PM PAN DUMPER Generic Rals LAB POCT ORDERABLES-MANUAL Performing Organization Address City/[facility]/ZIP Code Phon e Number [facility]- [address] [place] [phone] [place] [address] System [address] (ABNORMAL) Hemoglobin (03/13/2021 4:28 PM PAN DUMPER) athologist Signature Hemoglobin 8.0 (L) 11.6 - 15.0 03/13/2021 MKTO g/dL 4:39 PM PAN DUMPER Specimen Anatomical Collection Method Collection Time Receive d Time (Source) Location / / Volume Laterality Blood (Blood, 03/13/2021 4:28 PM 03/13/20 4:35 Arterial) PAN DUMPER PM PAN DUMPER Tariq CheryB.S. LAB BLOOD ADD-ON Performing Organization Address City/[facility]/ZIP Code Phon e Number [facility]- [address] [place] [phone] [place] [address] System in [address] Transfuse Red Blood Cells : (03/13/2021 12:13 PM PAN DUMPER) Tariq CheryB.S. BLOOD TRANSFUSION ORDERABLES Transfuse Red Blood Cells : , 1 Units (03/13/2021 12:13 PM PAN DUMPER) Tariq Santoyo.S. BLOOD TRANSFUSION ORDERABLES Glucose, POCT (03/13/2021 11:46 AM PAN DUMPER) athologist Signature Glucose, POCT, 130 70 - 140 03/13/2021 MKTO B mg/dL 11:46 AM PAN DUMPER Specimen Anatomical Collection Method Collection Time Receive d Time (Source) Location / / Volume Laterality Blood 03/13/2021 11:46 03/13/2021 AM PAN DUMPER 11:54 AM PAN DUMPER Generic Rals LAB POCT ORDERABLES-MANUAL Performing Organization Address City/[facility] Code Phon e Number [facility]- [address] [place] [phone] [place] [address] System [address] (ABNORMAL) Ferritin (03/13/2021 8:28 AM PAN DUMPER) athologist Signature Ferritin, S 801 (H) 6 - 175 03/13/2021 MKTO mcg/L 10:15 AM PAN DUMPER Comment: Biotin has been identified by the [facility] as a potential interfering substance. ??Higher concentr ations of biotin may be found in multivitamins, hair/nail supple ments, and workout supplements. ??If the result does not [facility] clinical observations, repeat testing after patient refrains fr om the use of supplements for at least 12 hours. Specimen Anatomical Collection Method Collection Time Receive d Time (Source) Location / / Volume Laterality Blood (Blood, 03/13/2021 8:28 AM 03/13/20 8:32 Venous) PAN DUMPER AM PAN DUMPER Tariq Santoyo.S. LAB BLOOD ADD-ON Performing Organization Address City/State/ZIP Code Phon e Number [facility]- [address] [place] [phone] [place] [address] (ABNORMAL) Folate (03/13/2021 8:28 AM PAN DUMPER) athologist Signature Folate, S 2.8 (L) >=4.0 mcg/L 03/13/2021 MKTO 2:38 PM PAN DUMPER Comment: Biotin has been identified by the chantelle peñaurer as a potential interfering substance. ??Higher concentr ations of biotin may be found in multivitamins, hair/nail supple ments, and workout supplements. ??If the result does not ma tc clinical observations, repeat testing after patient refrains fr om the use of supplements for at least 12 hours. Specimen Anatomical Collection Method Collection Time Receive d Time (Source) Location / / Volume Laterality Blood (Blood, 03/13/2021 8:28 AM 03/13/20 8:32 Venous) PAN DUMPER AM PAN DUMPER Tariq Santoyo.S. LAB BLOOD ADD-ON Performing Organization Address City/[facility] Phon e Number [address] [phone] [place] [address] Vitamin B12 Assay (03/13/2021 8:28 AM PAN DUMPER) P athologist Signature Vitamin B12 690 415 - 1244 03/13/2021 MKTO Assay, S ng/L 4:13 PM PAN DUMPER Comment: Biotin has been identified by the [facility]elle lorar as a potential interfering substance. ??Higher concentr ations of biotin may be found in multivitamins, hair/nail supple ments, and workout supplements. ??If the result does not ma tc clinical observations, repeat testing after patient refrains fr om the use of supplements for at least 12 hours. Specimen Anatomical Collection Method Collection Time Receive d Time (Source) Location / / Volume Laterality Blood (Blood, 03/13/2021 8:28 AM 03/13/20 8:32 Venous) PAN DUMPER AM PAN DUMPER Tariq Santoyo.S. LAB BLOOD ADD-ON Performing Organization Address City/State/[facility] Phon e Number [address] [phone] [place] [address] (ABNORMAL) Iron and Total Iron-Binding Capacity (03/13/2021 8:28 AM PAN DUMPER) P athologist Signature Iron 77 35 - 145 03/13/2021 MKTO mcg/dL 10:15 AM PAN DUMPER Total Iron 68 (L) 250 - 400 03/13/2021 MKTO Binding mcg/dL 10:15 AM PAN DUMPER Capacity Percent >90 (H) 14 - 50 % 03/13/2021 MKTO Saturation 10:15 AM PAN DUMPER Specimen Anatomical Collection Method Collection Time Receive d Time (Source) Location / / Volume Laterality Blood (Blood, 03/13/2021 8:28 AM 03/13/20 8:32 Venous) PAN DUMPER AM PAN DUMPER Tariq Santillan LAB BLOOD ADD-ON Performing Organization Address City/[facility] Phon e Number [facility]- [address] [place] [phone] [facility] [place] [id number] System [address] Patient Status (03/13/2021 5:37 AM PAN DUMPER) athologist Signature FIO2 0.30 0.21=AIR 03/13/2021 5:56 MKTO AM PAN DUMPER Specimen Anatomical Collection Method Collection Time Receive d Time (Source) Location / / Volume Laterality Blood 03/13/2021 5:37 AM 5:50 PAN DUMPER AM PAN DUMPER Ivan Lazo D.O. LAB BLOOD NON ADD-ON Performing Organization Address City/[facility] Code Phon e Number [facility]- [address] [place] [phone] [place] [address] System in [address] (ABNORMAL) Blood Gas with Coox, Arterial (03/13/2021 5:37 AM PAN DUMPER) athologist Signature P O2 141 (H) 83 - 108 03/13/2021 MKTO mm Hg 5:56 AM PAN DUMPER P CO2 30 (L) 32 - 45 mm 03/13/2021 MKTO Hg 5:56 AM PAN DUMPER pH 7.46 (H) 7.35 - 03/13/2021 MKTO 7.45 pH 5:56 AM PAN DUMPER Base Excess -2 -2 - 3 03/13/2021 MKTO mmol/L 5:56 AM PAN DUMPER HCO3 21 (L) 22 - 26 03/13/2021 MKTO mmol/L 5:56 AM PAN DUMPER Hemoglobin, B 7.2 (L) 11.6 - 03/13/2021 MKTO 15.0 g/dL 5:56 AM PAN DUMPER O2Hb 97.9 94.0 - 03/13/2021 MKTO 98.0 % 5:56 AM PAN DUMPER COHb 1.5 <3.0 % 03/13/2021 MKTO 5:56 AM PAN DUMPER MetHb 0.0 <1.5 % 03/13/2021 MKTO 5:56 AM PAN DUMPER CtO2 10.3 (L) 18.0 - 03/13/2021 MKTO 21.0 vol % 5:56 AM PAN DUMPER Arterial Art Line 03/13/2021 MKTO Sample Site 5:56 AM PAN DUMPER Specimen Anatomical Collection Method Collection Time Receive d Time (Source) Location / / Volume Laterality Blood (Blood, 03/13/2021 5:37 AM 03/13/20 5:50 Arterial) PAN DUMPER AM PAN DUMPER Ivan Lazo D.O. LAB BLOOD NON ADD-ON Performing Organization Address City/[facility] Phon e Number [address] [address] [place] [address] System in [address] Phosphorus Inorganic (03/13/2021 5:37 AM PAN DUMPER) P athologist Signature Phosphorus 3.1 2.5 - 4.5 03/13/2021 MKTO (Inorganic), P mg/dL 6:17 AM PAN DUMPER Specimen Anatomical Collection Method Collection Time Receive d Time (Source) Location / / Volume Laterality Blood (Blood, 03/13/2021 5:37 AM 03/13/20 5:50 Venous) PAN DUMPER AM PAN DUMPER Barrera Vargas M.D. LAB BLOOD ADD-ON Performing Organization Address City/[facility] Phon e Number [address] [phone] [place] [address] System in [address] (ABNORMAL) Magnesium (03/13/2021 5:37 AM PAN DUMPER) P athologist Signature Magnesium, P 2.6 (H) 1.7 - 2.3 03/13/2021 MKTO mg/dL 6:17 AM PAN DUMPER Specimen Anatomical Collection Method Collection Time Receive d Time (Source) Location / / Volume Laterality Blood (Blood, 03/13/2021 5:37 AM 03/13/20 5:50 Venous) PAN DUMPER AM PAN DUMPER Barrera Vargas M.D. LAB BLOOD ADD-ON Performing Organization Address City/[facility] Phon e Number [facility]- [address] [place] [phone] [place] [address] System in [address] Triglycerides (03/13/2021 5:37 AM PAN DUMPER) athologist Signature Triglycerides 127 mg/dL 03/13/2021 MKTO 6:17 AM PAN DUMPER Comment: ----REFERENCE VALUE---- Normal: <150 Borderline high: 150-199 High: 200-499 Very high: > or =500 Specimen Anatomical Collection Method Collection Time Receive d Time (Source) Location / / Volume Laterality Blood (Blood, 03/13/2021 5:37 AM 03/13/20 5:50 Venous) PAN DUMPER AM PAN DUMPER Barrera Vargas M.D. LAB BLOOD ADD-ON Performing Organization Address City/[facility] Phon e Number [facility]- [address] [place] [phone] [place] [address] (ABNORMAL) Comprehensive Metabolic Panel (03/13/2021 5:37 AM PAN DUMPER) Analysis Performed At Patho logist Time Signature Potassium, P 3.9 3.6 - 5.2 03/13/2021 MKTO mmol/L 6:17 AM PAN DUMPER Sodium, P 135 135 - 145 03/13/2021 MKTO mmol/L 6:17 AM PAN DUMPER Chloride, P 103 98 - 107 03/13/2021 MKTO mmol/L 6:17 AM PAN DUMPER Bicarbonate, P 20 (L) 22 - 29 03/13/2021 MKTO mmol/L 6:17 AM PAN DUMPER Anion Gap, P 12 7 - 15 03/13/2021 MKTO 6:17 AM PAN DUMPER BUN (Blood Urea 8 6 - 21 03/13/2021 MKTO Nitrogen), P mg/dL 6:17 AM PAN DUMPER Creatinine 0.56 (L) 0.59 - 03/13/2021 MKTO 1.04 mg/dL 6:17 AM PAN DUMPER eGFR-Black/Afri >90 >=60 03/13/2021 MKTO can Bahamian mL/min/BSA 6:17 AM PAN DUMPER Comment: ----ADDITIONAL INFORMATION---- Estimated GFR calculated using the 2009 CKD_EPI creatinine equation. eGFR Non-Black/ >90 >=60 mL/min/BSA 03/13/2021 6:17 AM PAN DUMPER MKTO Comment: ----ADDITIONAL INFORMATION---- Estimated GFR calculated using the 2009 CKD_EPI creatinine equation. Calcium, Total, P 9.0 8.6 - 10.0 mg/dL 03/13/2021 6:17 AM PAN DUMPER MKTO Glucose, P 115 70 - 140 mg/dL 03/13/2021 6:17 AM PAN DUMPER M KTO Protein, Total, P 5.7 (L) 6.3 - 7.9 g/dL 03/13/2021 6:17 A M PAN DUMPER MKTO Albumin, P 3.9 3.5 - 5.0 g/dL 03/13/2021 6:17 AM PAN DUMPER M KTO Aspartate Aminotransferase 64 (H) 8 - 43 U/L 03/13/2021 6 :17 AM PAN DUMPER MKTO (AST), P Alkaline Phosphatase, P 90 35 - 104 U/L 03/13/2021 6: 17 AM PAN DUMPER MKTO Alanine Aminotransferase 14 7 - 45 U/L 03/13/2021 6:1 7 AM PAN DUMPER MKTO (ALT), P Bilirubin, Total, P 6.1 (H) <=1.2 mg/dL 03/13/2021 6:17 AM PAN DUMPER MKTO Specimen Anatomical Collection Method Collection Time Receive d Time (Source) Location / / Volume Laterality Blood (Blood, 03/13/2021 5:37 AM 03/13/20 5:50 Venous) PAN DUMPER AM PAN DUMPER Barrera Vargas M.D. LAB BLOOD ADD-ON Performing Organization Address City/State/ZIP Code Phon e Number [facility]- [address] [place] [address] [facility] [place] [address] System in [place] [address] [facility] (ABNORMAL) CBC with Differential, Blood (03/13/2021 5:37 AM PAN DUMPER) [facility] Method Time Signature Hemoglobin 7.1 (L) 11.6 - 03/13/2021 MKTO 15.0 g/dL 7:27 AM PAN DUMPER Hematocrit 21.0 (L) 35.5 - 03/13/2021 MKTO 44.9 % 7:27 AM PAN DUMPER Erythrocytes 2.11 (L) 3.92 - 03/13/2021 MKTO 5.13 7:27 AM PAN DUMPER x10(12)/L MCV 99.5 (H) 78.2 - 03/13/2021 MKTO 97.9 fL 7:27 AM PAN DUMPER RBC Distrib Width 20.1 (H) 12.2 - 03/13/2021 MKTO 16.1 % 7:27 AM PAN DUMPER Platelet Count 101 (L) 157 - 371 03/13/2021 MKTO x10(9)/L 7:27 AM PAN DUMPER Leukocytes 8.4 3.4 - 9.6 03/13/2021 MKTO x10(9)/L 7:27 AM PAN DUMPER Neutrophils 6.72 (H) 1.56 - 03/13/2021 MKTO 6.45 7:27 AM PAN DUMPER x10(9)/L Lymphocytes 0.85 (L) 0.95 - 03/13/2021 MKTO 3.07 7:27 AM PAN DUMPER x10(9)/L Monocytes 0.86 (H) 0.26 - 03/13/2021 MKTO 0.81 7:27 AM PAN DUMPER x10(9)/L Eosinophils <0.03 0.03 - 03/13/2021 MKTO 0.48 7:27 AM PAN DUMPER x10(9)/L Basophils <0.03 0.01 - 03/13/2021 MKTO 0.08 7:27 AM PAN DUMPER x10(9)/L Specimen Anatomical Collection Method Collection Time Receive d Time (Source) Location / / Volume Laterality Blood (Blood, 03/13/2021 5:37 AM 03/13/20 5:50 Venous) PAN DUMPER AM PAN DUMPER Junshay Vargas M.D. LAB BLOOD ADD-ON Performing Organization Address City/State/ZIP Code Phon e Number [facility]- [address] [place] [phone] [place] [address] (ABNORMAL) Ammonia (03/13/2021 5:37 AM PAN DUMPER) P athologist Signature Ammonia, P 110 (H) <=51 03/13/2021 [facility] mcmol/L 6:16 AM PAN DUMPER Specimen Anatomical Collection Method Collection Time Receive d Time (Source) Location / / Volume Laterality Blood (Blood, 03/13/2021 5:37 AM 03/13/20 5:49 Venous) PAN DUMPER AM PAN DUMPER Barrera Vargas M.D. LAB BLOOD NON ADD-ON Performing Organization Address City/[facility]/ZIP Code Phon e Number [facility]- [address] [place] [phone] [place] [address] DX Chest Portable 1 View (03/13/2021 4:32 AM PAN DUMPER) Anatomical Region Laterality Modality Chest, Thoracic RST LOS, Thoracic ARZ LOS, Thoracic N/A Digital Radiography FLA LOS Specimen (Source) Anatomical Collection Method Collection Time Re ceived Time Location / / Volume Laterality 03/13/2021 8:07 AM PAN DUMPER Impressions 03/13/2021 8:08 AM PAN DUMPER Persistent right basilar infiltrate or a telectasis. Narrative 03/13/2021 8:08 AM PAN DUMPER EXAM: DX CHEST PORTABLE 1 VIEW COMPARISON: 03/12/2021. FINDINGS: Tubes and lines are unchanged in position. Heart size is within normal limits. There is persistent right basila r infiltrate or atelectasis. There is some minimal discoid atelectasis at the left midlung. There are no effusions. Procedure Note Juan Durant Jr., M.D. - 2020 EXAM: DX CHEST PORTABLE 1 VIEW COMPARISON: 03/12/2021. FINDINGS: Tubes and lines are unchanged in position. Heart size is within normal limits. There is persistent right basila r infiltrate or atelectasis. There is some minimal discoid atelectasis at the left midlung. There are no effusions. IMPRESSION: Persistent right basilar infiltrate or a telectasis. Ivan Lazo D.O. IMG DIAGNOSTIC IMAGING PROCE [place] (ABNORMAL) Basic Metabolic Panel (03/13/2021 1:20 AM PAN DUMPER) Analysis Performed At Patho logist Time Signature Potassium, P 2.9 (L) 3.6 - 5.2 03/13/2021 MKTO mmol/L 1:58 AM PAN DUMPER Sodium, P 134 (L) 135 - 145 03/13/2021 MKTO mmol/L 1:58 AM PAN DUMPER Chloride, P 99 98 - 107 03/13/2021 MKTO mmol/L 1:58 AM PAN DUMPER Bicarbonate, P 20 (L) 22 - 29 03/13/2021 MKTO mmol/L 1:58 AM PAN DUMPER Anion Gap, P 15 7 - 15 03/13/2021 MKTO 1:58 AM PAN DUMPER BUN (Blood Urea 8 6 - 21 03/13/2021 MKTO Nitrogen), P mg/dL 1:58 AM PAN DUMPER Creatinine 0.56 (L) 0.59 - 03/13/2021 MKTO 1.04 mg/dL 1:58 AM PAN DUMPER eGFR-Black/Afri >90 >=60 03/13/2021 MKTO can Bahamian mL/min/BSA 1:58 AM PAN DUMPER Comment: ----ADDITIONAL INFORMATION---- Estimated GFR calculated using the 2009 CKD_EPI creatinine equation. eGFR Non-Black/ >90 >=60 mL/min/BSA 03/13/2021 1:58 AM PAN DUMPER MKTO Comment: ----ADDITIONAL INFORMATION---- Estimated GFR calculated using the 2009 CKD_EPI creatinine equation. Calcium, Total, P 8.9 8.6 - 10.0 mg/dL 03/13/2021 1:58 AM PAN DUMPER MKTO Glucose, P 120 70 - 140 mg/dL 03/13/2021 1:58 AM PAN DUMPER M KTO Specimen Anatomical Collection Method Collection Time Receive d Time (Source) Location / / Volume Laterality Blood (Blood, 03/13/2021 1:20 AM 03/13/20 1:23 Venous) PAN DUMPER AM PAN DUMPER Ivan Lazo D.O. LAB BLOOD ADD-ON Performing Organization Address City/[facility]/ZIP [place] Phon e Number [facility]- [address] [place] [phone] [place] [address] (ABNORMAL) Hemoglobin (03/13/2021 12:11 AM PAN DUMPER) athologist Signature Hemoglobin 7.4 (L) 11.6 - 15.0 03/13/2021 MKTO g/dL 12:18 AM PAN DUMPER Specimen Anatomical Collection Method Collection Time Receive d Time (Source) Location / / Volume Laterality Blood (Blood, 03/13/2021 12:11 03/13/2021 Venous) AM PAN DUMPER 12:15 AM PAN DUMPER Barrera Vargas M.D. LAB BLOOD ADD-ON Performing Organization Address [facility]/ZIP [place] Phon e Number [facility]- [address] [place] [phone] [place] [address] System in [address] Glucose, POCT (03/12/2021 11:44 PM PAN DUMPER) athologist Signature Glucose, POCT, 120 70 - 140 03/12/2021 MKTO B mg/dL 11:44 PM PAN DUMPER Specimen Anatomical Collection Method Collection Time Receive d Time (Source) Location / / Volume Laterality Blood 03/12/2021 11:44 03/12/2021 PM PAN DUMPER 11:51 PM PAN DUMPER Generic Rals LAB POCT ORDERABLES-MANUAL Performing Organization Address City/[facility]/ZIP [place] Phon e Number [facility]- [address] [place] [phone] [place] [address] Ethyl Glucuronide Screen with Reflex, Urine (03/12/2021 11:12 PM PAN DUMPER) [facility] gist Method Time Signature Ethyl Negative Cutoff: 03/14/2021 SDSC Glucuronide Scrn 500 ng/mL 9:46 AM PAN DUMPER w/Reflex, U Comment: ----ADDITIONAL INFORMATION---- This test was developed and its performa nce characteristics determined by [facility] in a manner consistent with CLIA requirements. This test has not been cleared or approved by the [place] d and Drug Administration. Specimen Anatomical Collection Method Collection Time Receive d Time (Source) Location / / Volume Laterality Urine (Urine, 03/12/2021 11:12 03/14/2021 8:00 Clean Catch) PM PAN DUMPER AM PAN DUMPER Sera Elizabeth Cathy Matt LAB URINE ORDERABLES Performing Organization Address City/State/ZIP Code Phon e Number [facility] [address] [place], [place] [address] SUPPORT CENTER [place] [address] Laboratory Medicine and Pathology [address] [place] INTUB W ETT, LDA ANE ENDOTRACHEAL AIRWAY (03/12/2021 10:30 PM PAN DUMPER) Narrative Barrera To M.D. - 2020 10:30 PM PAN DUMPER Barrera To M.D. ? 03/12/2021 ??6:07 PM Intubation Date/Time: 03/12/2021 10:30 PM Performed by: Barrera To M.D. Authorized by: Barrera To M.D. Patient location during procedure: ICU / PCU PROCEDURE DETAILS: Mask difficulty assessment: easy mask Final airway type: video laryngoscope Laryngeal Manipulation: no ?? Final best view of glottic structures - Cormack/Lehane Score: grade 2A ETT location: oral VL device: glide scope Hebo scope blade size: 3 Adult tube size: 7.5 Adult ETT distance at teeth/gum: 22 Oral tube type: standard ETT Cuffed: yes Number of attempt to successful placemen t: 1 Airway confirmation: bilateral breath so unds, positive ETCO2, bilateral chest rise and chest x-ray Other previous techniques attempted: non e CONSENT Consent obtained: verbal Consent given by: parent (mom) The benefits, risks and alternatives to the [...] was done as applicable. The procedural time-out w as conducted prior to performing the procedure and confirmed in a procedu ral pause. PRE PROCEDURE DETAILS: Pre evaluation for airway management: ai rway protection Urgency: emergent Preop assessment of probable difficulty: no difficulty anticipated Preoxygenation: bag valve mask SEDATION / ANESTHESIA Anesthesia method: deep sedation POST PROCEDURE DETAILS: ? Procedure outcome: successful ?? Airway event: no complications Barrera Vargas M.D. ANESTHESIA ORDERABLES (ABNORMAL) Glucose, POCT (03/12/2021 6:11 PM PAN DUMPER) P athologist Signature Glucose, POCT, 170 (H) 70 - 140 03/12/2021 MKTO B mg/dL 6:11 PM PAN DUMPER Specimen Anatomical Collection Method Collection Time Receive d Time (Source) Location / / Volume Laterality Blood 03/12/2021 6:11 PM 6:23 PAN DUMPER PM PAN DUMPER Generic Rals LAB POCT ORDERABLES-MANUAL Performing Organization Address City/State/ZIP Code Phon e Number [facility]- [address] [place] [address] [place] [address] System in [place] [address] [place] [address] [place] PARACENTESIS ABD WO IMG (03/12/2021 6:02 PM PAN DUMPER) Narrative Barrera To M.D. - 2020 6:02 PM PAN DUMPER Barrera To M.D. ? 03/12/2021 ??6:07 PM Paracentesis Date/Time: 03/12/2021 6:02 PM Performed by: Barrera To M.D. Authorized by: Barrera To M.D. PROCEDURE DETAILS Equipment: paracentesis tray Needle gauge: 18 Ultrasound guidance: no (US marked spot) ?? Puncture site: right lower quadrant Fluid removed amount (mL): 1500 Fluid appearance: yellow Specimen: specimen sent per request CONSENT Consent obtained: verbal Consent given by: parent (mom) The benefits, risks and alternatives to the [...] was done as applicable. The procedural time-out w as conducted prior to performing the procedure and confirmed in a procedu ral pause. PRE-PROCEDURE DETAILS Procedure purpose: ??Diagnostic and ther apeutic Indications: ??Ascites and r/o spontaneo us bacterial peritonitis Appropriate hand hygiene, gown, cap, ma sk, protective eyewear, sterile gloves, skin preparation, sterile drape, and strict aseptic technique were utilized as applicable for the procedure .: yes ?? Skin preparation: ??Chlorhexidine SEDATION / ANESTHESIA Anesthesia method: topical application Topical application type: lidocaine POST-PROCEDURE DETAILS Albumin replacement: ??25g- 25% albumin Dressing: ??4x4 sterile gauze Procedure completed successfully: yes ?? Complications: no apparent complications ?? Barrera Vargas M.D. PROCEDURE/MINOR SURGICAL ORDERABLES THORACENTESIS (03/12/2021 6:02 PM PAN DUMPER) Narrative Barrera To M.D. - 2020 6:02 PM PAN DUMPER Barrera To M.D. ? 03/12/2021 ??6:07 PM Thoracentesis Date/Time: 03/12/2021 6:02 PM Performed by: Barrera To M.D. Authorized by: Barrera To M.D. PROCEDURE DETAILS Location: right mid-axillary Intercostal space: 3rd Puncture method: gqkg-seb-dggqca cathete r Number of attempts: 1 Drainage characteristics: serous Estimated amount of fluid removed (ml): 1200 Ultrasound guided: yes (US was used to m arked the location) ?? Image saved: no ?? CONSENT Consent obtained: verbal (mom) Consent given by: parent The benefits, risks and alternatives to the [...] was done as applicable. The procedural time-out w as conducted prior to performing the procedure and confirmed in a procedu ral pause. PRE-PROCEDURE DETAILS Procedure purpose: diagnostic and therap eutic Indications comments: hepatic hydrothora x vs paraneumonic effusion Appropriate hand hygiene, gown, cap, mas k, protective eyewear, sterile gloves, skin preparation, sterile drape, and strict aseptic technique were utilized as applicable for the procedure . Site preparation: chlorhexidine SEDATION / ANESTHESIA Anesthesia method: topical application Topical application type: lidocaine Barrera Vargas M.D. PROCEDURE/MINOR SURGICAL ORDERABLES NV INS NON-ALEN CVC >5YR, NV US GUIDE VASC ACCESS, LDA ANE CENTRAL LINE TRIPLE LUMEN, MC ANE CENTRAL LINE GENERIC PERFORMABLE (03/12/2021 6:02 PM PAN DUMPER) Narrative Barrera To M.D. - 2020 6:02 PM PAN DUMPER Barrera To M.D. ? 03/12/2021 ??6:07 PM Invasive Line Date/Time: 03/12/2021 6:02 PM Performed by: Barrera To M.D. Authorized by: Barrera To M.D. Location: ICU/PCU PROCEDURE DETAILS: Line type: central venous ?? Laterality: right Location: jugular internal Location details: new site ?? Additional catheter (i.e. multiple lines in same vessel): no ?? Patient position: Trendelenburg ?? Age group: adult Line Type: temporary (non-tunneled, non- implanted) Introducer: no ?? Lumen(s): triple lumen Catheter diameter: 7 Fr Catheter insertion depth (cm): 16 cm Site the catheter was advanced to (this is the intended location and does not need to be proven by radiologic exam ): central venous circulation ?? Technique: ultrasound guided ?? Ultrasound guidance: image acquired and saved Ultrasound comment: ultrasound guidance used demonstrating vessel patency and cannulation of the vessel observed. Vessel transduced: yes ?? Monitored (venous): yes Number of attempts: 1 CONSENT Consent obtained: verbal Consent given by: parent (mom) The benefits, risks and alternatives to the [...] was done as applicable. The procedural time-out w as conducted prior to performing the procedure and confirmed in a procedu ral pause. PRE-PROCEDURE DETAILS: Indication(s): medication/nutrition requ iring central access Appropriate hand hygiene, gown, cap, mas k, protective eyewear, sterile gloves, skin preparation, sterile drape, and strict aseptic technique were utilized as applicable for the procedure .: yes ?? Skin preparation: chlorhexidine ?? SEDATION / ANESTHESIA Anesthesia method: local infiltration POST-PROCEDURE DETAILS: Procedure completed successfully: yes ?? Line secured: sutured Chlorhexidine disc around insertion site and under catheter with slight turn: yes ?? Complications: none ?? Authorizing Provider Result Woodrow Vargas M.D. PROCEDURE/MINOR SURGICAL ORDERABLES Transfuse Red Blood Cells : (03/12/2021 5:39 PM PAN DUMPER) Authorizing Provider Result Woodrow Vargas M.D. BLOOD TRANSFUSION ORDERA BLES Transfuse Red Blood Cells : , 1 Units (03/12/2021 5:39 PM PAN DUMPER) Authorizing Provider Result Woodrow Vargas M.D. BLOOD TRANSFUSION ORDERA BLES (ABNORMAL) Hemoglobin (03/12/2021 5:35 PM PAN DUMPER) P athologist Signature Hemoglobin 7.6 (L) 11.6 - 15.0 03/12/2021 MKTO g/dL 5:50 PM PAN DUMPER Specimen Anatomical Collection Method Collection Time Receive d Time (Source) Location / / Volume Laterality Blood (Blood, 03/12/2021 5:35 PM 03/12/20 5:46 Venous) PAN DUMPER PM PAN DUMPER Barrera Vargas M.D. LAB BLOOD ADD-ON Performing Organization Address City/State/ZIP Code Phon e Number [facility]- [address] [place] [phone] [place] [address] System [address] Calcium, Ionized (03/12/2021 5:35 PM PAN DUMPER) P athologist Signature Calcium, 4.70 4.65 - 5.30 03/12/2021 MKTO Ionized, B mg/dL 5:49 PM PAN DUMPER Specimen Anatomical Collection Method Collection Time Receive d Time (Source) Location / / Volume Laterality Blood 03/12/2021 5:35 PM 5:46 PAN DUMPER PM PAN DUMPER Barrera Vargas M.D. LAB BLOOD NON ADD-ON Performing Organization Address City/[facility]/ZIP Code Phon e Number [facility]- [address] [place] [phone] [place] [address] System [place] [address] (ABNORMAL) pH (03/12/2021 5:35 PM PAN DUMPER) P athologist Signature pH 7.46 (H) 7.35 - 7.45 03/12/2021 MKTO pH 5:49 PM PAN DUMPER Specimen Anatomical Collection Method Collection Time Receive d Time (Source) Location / / Volume Laterality Blood 03/12/2021 5:35 PM 5:46 PAN DUMPER PM PAN DUMPER Barrera Vargas M.D. LAB HISTORICAL ORDERS Performing Organization Address City/[facility]/ZIP Code Phon e Number [facility]- [address] [place] [phone] [facility] [place] [address] System [address] (ABNORMAL) Ammonia (03/12/2021 5:35 PM PAN DUMPER) P athologist Signature Ammonia, P 80 (H) <=51 03/12/2021 MKTO mcmol/L 6:06 PM PAN DUMPER Specimen Anatomical Collection Method Collection Time Receive d Time (Source) Location / / Volume Laterality Blood (Blood, 03/12/2021 5:35 PM 03/12/20 5:46 Venous) PAN DUMPER PM PAN DUMPER Barrera Vargas M.D. LAB BLOOD NON ADD-ON Performing Organization Address City/[facility] Phon e Number [address] [phone] [place] [address] System [address] (ABNORMAL) Phosphorus Inorganic (03/12/2021 5:35 PM PAN DUMPER) P athologist Signature Phosphorus 4.6 (H) 2.5 - 4.5 03/12/2021 MKTO (Inorganic), P mg/dL 6:07 PM PAN DUMPER Specimen Anatomical Collection Method Collection Time Receive d Time (Source) Location / / Volume Laterality Blood (Blood, 03/12/2021 5:35 PM 03/12/20 5:46 Venous) PAN DUMPER PM PAN DUMPER Barrera Vargas M.D. LAB BLOOD ADD-ON Performing Organization Address City/[facility] Code Phon e Number [address] [address] [place] [facility] [place], [place] [id number] [place] [address] (ABNORMAL) Magnesium (03/12/2021 5:35 PM PAN DUMPER) P athologist Signature Magnesium, P 3.7 (H) 1.7 - 2.3 03/12/2021 MKTO mg/dL 6:07 PM PAN DUMPER Specimen Anatomical Collection Method Collection Time Receive d Time (Source) Location / / Volume Laterality Blood (Blood, 03/12/2021 5:35 PM 03/12/20 5:46 Venous) PAN DUMPER PM PAN DUMPER Barrera Vargas M.D. LAB BLOOD ADD-ON Performing Organization Address City/[facility]/ZIP Code Phon e Number [address] [phone] [facility] [place] [address] System in [place] [address] [facility] (ABNORMAL) Comprehensive Metabolic Panel (03/12/2021 5:35 PM PAN DUMPER) Analysis Performed At Patho logist Time Signature Potassium, P 2.5 (CL) 3.6 - 5.2 03/12/2021 MKTO mmol/L 6:08 PM PAN DUMPER Sodium, P 133 (L) 135 - 145 03/12/2021 MKTO mmol/L 6:07 PM PAN DUMPER Chloride, P 98 98 - 107 03/12/2021 MKTO mmol/L 6:07 PM PAN DUMPER Bicarbonate, P 20 (L) 22 - 29 03/12/2021 MKTO mmol/L 6:07 PM PAN DUMPER Anion Gap, P 15 7 - 15 03/12/2021 MKTO 6:07 PM PAN DUMPER BUN (Blood Urea 9 6 - 21 03/12/2021 MKTO Nitrogen), P mg/dL 6:07 PM PAN DUMPER Creatinine 0.57 (L) 0.59 - 03/12/2021 MKTO 1.04 mg/dL 6:07 PM PAN DUMPER eGFR-Black/Afri >90 >=60 03/12/2021 MKTO can Bahamian mL/min/BSA 6:07 PM PAN DUMPER Comment: ----ADDITIONAL INFORMATION---- Estimated GFR calculated using the 2009 CKD_EPI creatinine equation. eGFR Non-Black/ >90 >=60 mL/min/BSA 03/12/2021 6:07 PM PAN DUMPER MKTO Comment: ----ADDITIONAL INFORMATION---- Estimated GFR calculated using the 2009 CKD_EPI creatinine equation. Calcium, Total, P 8.7 8.6 - 10.0 mg/dL 03/12/2021 6:07 PM PAN DUMPER MKTO Glucose, P 190 (H) 70 - 140 mg/dL 03/12/2021 6:07 PM PAN DUMPER M KTO Protein, Total, P 5.5 (L) 6.3 - 7.9 g/dL 03/12/2021 6:07 P M PAN DUMPER MKTO Albumin, P 3.4 (L) 3.5 - 5.0 g/dL 03/12/2021 6:07 PM PAN DUMPER M KTO Aspartate Aminotransferase 66 (H) 8 - 43 U/L 03/12/2021 6 :07 PM PAN DUMPER MKTO (AST), P Alkaline Phosphatase, P 97 35 - 104 U/L 03/12/2021 6: 07 PM PAN DUMPER MKTO Alanine Aminotransferase 16 7 - 45 U/L 03/12/2021 6:0 7 PM PAN DUMPER MKTO (ALT), P Bilirubin, Total, P 6.0 (H) <=1.2 mg/dL 03/12/2021 6:07 PM PAN DUMPER MKTO Specimen Anatomical Collection Method Collection Time Receive d Time (Source) Location / / Volume Laterality Blood (Blood, 03/12/2021 5:35 PM 03/12/20 5:46 Venous) PAN DUMPER PM PAN DUMPER Barrera Vargas M.D. LAB BLOOD ADD-ON Performing Organization Address City/[facility] Phon e Number [facility]- [address] [place] [phone] [place] [address] Bacterial Culture, Aerobic + Susc (03/12/2021 3:46 PM PAN DUMPER) [facility] [employer] Method Time Signature Bacterial No growth 03/17/2021 MKTO Culture, after 5 7:38 AM PAN DUMPER Aerobic + Susc days of incubation. Specimen Anatomical Collection Method Collection Time Receive d Time (Source) Location / / Volume Laterality Fluid 03/12/2021 3:46 PM 1 3:46 (Peritoneal PAN DUMPER PM PAN DUMPER Fluid) Comment: Specimen Source Site: Fluid Sera Morgan P.A.-C. LAB MICROBIOLOGY - GENERAL O RDERABLES Performing Organization Address City/State/ZIP [place] Phon e Number [facility]- [address] [place] [phone] [place] [address] Bacterial Culture, Anaerobic + Susc (03/12/2021 3:46 PM PAN DUMPER) [facility] [employer] Method Time Signature Bacterial No growth 03/19/2021 MKTO Culture, after 7 8:26 AM PAN DUMPER Anaerobic days of incubation. Specimen Anatomical Collection Method Collection Time Receive d Time (Source) Location / / Volume Laterality Fluid 03/12/2021 3:46 PM 1 3:46 (Peritoneal PAN DUMPER PM PAN DUMPER Fluid) Comment: Specimen Source Site: Fluid Sera Morgan P.A.-C. LAB MICROBIOLOGY - GENERAL O JOSE Performing Organization Address City/[facility]/ZIP Code Phon e Number [facility]- [facility] [place] [address] [place] [address] [address] Gram Stain (03/12/2021 3:46 PM PAN DUMPER) Patholo gist Method Time Signature Gram Stain No organisms seen. 03/12/2021 MKTO White blood cells present. 6:22 PM PAN DUMPER Stain performed on concentrated cytospin preparation. Specimen Anatomical Collection Method Collection Time Receive d Time (Source) Location / / Volume Laterality Fluid 03/12/2021 3:46 PM 1 3:46 (Peritoneal PAN DUMPER PM PAN DUMPER Fluid) Comment: Specimen Source Site: Fluid Sera Morgan P.A.-C. LAB MICROBIOLOGY - GENERAL O JOSE Performing Organization Address City/[facility] Code Phon e Number [facility]- [address] [place] [phone] [place] [address] System in [address] Protein, Total, Body Fluid (03/12/2021 3:46 PM PAN DUMPER) P athologist Signature Protein, 1.0 See Comment 03/14/2021 DTL Total, BF g/dL 10:40 AM PAN DUMPER Comment: ----ADDITIONAL INFORMATION---- A pleural fluid total [...] ical findings. All other fluids refer to [email or web address] for further inter pretive information. This test has been modified from the sugar refiner's instructions. Its perform ance characteristics were determined by [facility] in a manner consistent with CLIA require ments. This test has not been cleared or approv ed by the U.S. Food and Drug Administration. Fluid Type, Protein, Total PERITONEAL 03/14/2021 1 0:06 AM PAN DUMPER DTL Specimen Anatomical Collection Method Collection Time Receive d Time (Source) Location / / Volume Laterality Fluid 03/12/2021 3:46 PM 9:49 (Peritoneal PAN DUMPER AM PAN DUMPER Fluid) Sera Morgan P.A.-C. LAB BODY FLUIDS AND STOOLS O RDERABLES Performing Organization Address City/State/ZIP Code Phon e Number [facility] - [address] [place], [place] [address] [facility] [place] [address] Laboratories-[facility] [address] [facility] Cell Count and Differential, Body Fluid (03/12/2021 3:46 PM PAN DUMPER) [facility] gist Method Time Signature Fluid Type Peritoneal/ 03/12/2021 MKTO Paracentesi 4:30 PM PAN DUMPER s Gross Serous 03/12/2021 MKTO Appearance 4:33 PM PAN DUMPER Total Nucleated 53 /mcL 03/12/2021 MKTO Cells 4:33 PM PAN DUMPER Comment: ----REFERENCE VALUE---- Synovial: <150 Peritoneal: <500 Pleural: <500 Pericardial: <500 ----ADDITIONAL INFORMATION---- This test has been modified from the man ufacturer's instructions. Its performance characteri stics were determined by [facility] in a manner co nsistent with CLIA requirements. This test has not bee n cleared or approved by the U.S. Food and Drug Admin istration. Lymphocytes 31 Synovial: <75% % 03/12/2021 5:20 PM CS T MKTO Monocytes/Macrophages 63 Synovial: <70% % 03/12/2021 5:20 PM PAN DUMPER MKTO Other Cells 6 % 03/12/2021 5:20 PM PAN DUMPER MKTO Comment: ----REFERENCE VALUE---- The reference range and other method per formance specifications have not been established for this body fluid. The test result must be integrate d into the clinical context for interpretation. Other Cells Are: Mesothelial cells 03/12/2021 5:20 PM PAN DUMPER MKTO Comment SeeComment 03/12/2021 4:33 PM PAN DUMPER MKTO Comment: will be reviewed py path. Reviewed by: Dr. Fox 03/13/2021 8:07 AM PAN DUMPER MKTO Comment: REVISED RESULTS ----PREVIOUSLY REPORTED ---- DNR, Flagged as: Normal (Reported 03/12/2021 17:20) Specimen Anatomical Collection Method Collection Time Receive d Time (Source) Location / / Volume Laterality Fluid 03/12/2021 3:46 PM 3:46 (Peritoneal PAN DUMPER PM PAN DUMPER Fluid) Sera Morgan P.A.-C. LAB BODY FLUIDS AND STOOLS O JOSE Performing Organization Address [facility] Phon e Number [facility]- [address] [place] [phone] [place] [address] [place] [address] System in [address] Albumin, Body Fluid (03/12/2021 3:46 PM PAN DUMPER) P athologist Signature Albumin BF 0.7 See Comment 03/14/2021 DTL g/dL 10:40 AM PAN DUMPER Comment: ----ADDITIONAL INFORMATION---- Peritoneal fluid albumin is used to calc ulate the serum-ascites albumin gradient (SAAG). V alues greater than or equal to 1.1 g/dL suggest portal hypertension. Pleural fluid albumin may be used to ada culate a serum-effusion albumin gradient. Values greater than 1.2 g/dL are most consistent with a noriega sudative process. ?? All other fluids refer to [email or web address] for further interpretive information. This t est has been modified from the sugar refiner's instruc tions. Its performance characteristics were determi foreign by [facility] in a manner consistent with CLIA require ments. This test has not been cleared or approved by the U.S. Food and Drug Administration. Fluid Type, Albumin PERITONEAL 03/14/2021 10:06 AM PAN DUMPER DTL Specimen Anatomical Collection Method Collection Time Receive d Time (Source) Location / / Volume Laterality Fluid 03/12/2021 3:46 PM 9:49 (Peritoneal PAN DUMPER AM PAN DUMPER Fluid) Sera Morgan P.A.-C. LAB BODY FLUIDS AND STOOLS O JOSE Performing Organization Address City/State/ZIP Code Phon e Number [facility] - [address] [place], [place] [address] [facility] [place] [address] Laboratories-[facility] [address] Zafst-[id number]-Nmowewmxuud (03/12/2021 2:57 PM PAN DUMPER) athologist Signature Bsalt-6-Edaxbjb 170 100 - 190 03/14/2021 [facility] psin, S mg/dL 10:09 AM PAN DUMPER Specimen Anatomical Collection Method Collection Time Receive d Time (Source) Location / / Volume Laterality Blood (Blood, 03/12/2021 2:57 PM 03/14/20 7:05 Venous) PAN DUMPER AM PAN DUMPER Sera Morgan P.A.-C. LAB BLOOD ADD-ON Performing Organization Address City/[facility]/ZIP Code Phon e Number [facility] [address] [place], [place] [address] [facility] [place] [address] Laboratory Medicine and Pathology [address] [place] (ABNORMAL) Ceruloplasmin (03/12/2021 2:57 PM PAN DUMPER) athologist Signature Ceruloplasmin, 16.5 (L) 20.0 - 03/13/2021 DT S 51.0 mg/dL 10:48 AM PAN DUMPER Comment: A low concentration of ceruloplasmin in [...] serum copper, and Bhavin disease full gene sammy lysis. ??Please contact the laboratory at or the on-line test catalog at [employer] for m ore information. Specimen Anatomical Collection Method Collection Time Receive d Time (Source) Location / / Volume Laterality Blood 03/12/2021 2:57 PM 8:43 PAN DUMPER AM PAN DUMPER Barrera Vargas M.D. LAB BLOOD ADD-ON Performing Organization Address City/[facility]/ZIP Code Phon e Number [facility] - [address] [place], [place] [address] [place] [address] Laboratories-[facility] [address] [facility] Autoimmune Liver Disease Panel (03/12/2021 2:57 PM PAN DUMPER) Analysis Performed At Patho logist Time Signature Mitochondrial Ab, <0.1 <0.1 03/13/2021 [facility] M2, S (Negative) 2:19 PM PAN DUMPER U Antinuclear Ab, S 0.2 <=1.0 03/13/2021 [facility] (Negative) 12:55 PM PAN DUMPER U Comment: ----ADDITIONAL INFORMATION---- Method: Enzyme-linked immunoassay using HEp-2 nuclear extract supplemented with purified antig ens. Smooth Muscle Ab Screen, S Negative Negative 03/13/2021 12 :11 PM PAN DUMPER [facility] [facility] Comment: Negative: No further testing will be per formed ----ADDITIONAL INFORMATION---- This test was developed and its performa nce characteristics determined by [facility] in a manner consistent with CLIA requirements. This test has not been cleared or approved by the [place] and Drug Administration. Specimen Anatomical Collection Method Collection Time Receive d Time (Source) Location / / Volume Laterality Blood 03/12/2021 2:57 PM 1 7:28 PAN DUMPER AM PAN DUMPER Barrera Vargas M.D. LAB BLOOD ADD-ON Performing Organization Address City/[facility]/ZIP Code Phon e Number [facility] [address] [place], [place] [address] [facility] [place] [address] Laboratory Medicine and Pathology [address] [place] (ABNORMAL) Glucose, POCT (03/12/2021 2:06 PM PAN DUMPER) P athologist Signature Glucose, POCT, 155 (H) 70 - 140 03/12/2021 MKTO B mg/dL 2:06 PM PAN DUMPER Specimen Anatomical Collection Method Collection Time Receive d Time (Source) Location / / Volume Laterality Blood 03/12/2021 2:06 PM 1 2:39 PAN DUMPER PM PAN DUMPER Generic Rals LAB POCT ORDERABLES-MANUAL Performing Organization Address City/State/ZIP Code Phon e Number [facility]- [address] [place] [address] [facility] [place] [address] System in [place] [address] [facility] [address] Abdomen Pelvis with IV Contrast (03/12/2021 1:50 PM PAN DUMPER) Anatomical Region Laterality Modality Abdomen, Pelvis, Abdominal RST LOS, Abdominal ARZ LOS, N/A Computed Tomography Abdominal FLA LOS Specimen (Source) Anatomical Collection Method Collection Time Re ceived Time Location / / Volume Laterality 03/12/2021 2:04 PM PAN DUMPER Impressions 03/12/2021 2:37 PM PAN DUMPER 1. ??Partial atelectasis of the bilatera l lower lobes. Difficult to exclude superimposed infiltrates in the atelecta tic lungs. Two subtle small areas of groundglass attenuation in the left uppe r lobe and right middle lobe, favored to represent minimal infectious/inflammator y change. 2. ??Moderate volume ascites. Small foci of intra-abdominal gas in the right anterior abdomen, in the setting of repo rted recent paracentesis. Small right pleural effusion. 3. ??Proximal large bowel distention wit h mixed attenuation stool/fluid suggesting possible functional obstructi on. No evidence of mechanical large bowel obstruction. 4. ??Mild large bowel wall thickening, t hat may be related to fluid third spacing or possible colitis. No pneumatosis. 5. ??Small appearing pancreas with pancr eatic head calcifications, suggesting sequelae of chronic pancreatitis. Spleno megaly. Patent portal and splenic veins. 6. ??Malpositioned appearing intrauterin e contraceptive device. 7. ??Subacute appearing fracture of righ t anterior fifth rib. Narrative 03/12/2021 2:37 PM PAN DUMPER EXAM: CT CHEST WITH IV CONTRAST, CT ABDOMEN PELVIS WITH IV CONTRAST 3D/MIPS: 3D Post-Processing performed on a dependent workstation. COMPARISON: None. FINDINGS: CHEST: Enhancing parenchymal opacities i n the bilateral lower lobes, with associated lower lobe volume loss, favor ed to represent partial lower lobe atelectasis. Small layering right pleura l effusion. 1.5 cm area of groundglass attenuation in the left upper lobe on se berny 8 image 138. Another similar 8 mm focus in the right middle lobe on image 170. Lateral right middle lobe subsegmental atelectasis. Note made of a left upper lobe accessory fissure. No pneumothorax. An endotracheal tube termi nates in the midthoracic trachea. Small amount of mucus in the trachea near the endotracheal tube tip. The central bronchi are clear. The heart is not enlarged. No pericardia l effusion. Within limitation of motion artifact, the thoracic aorta is within n ormal limits in caliber. Right jugular central line. No lymphadenopathy. Subacute appearing fracture of right ant erior ribs 5. No acute osseous abnormality. ABDOMEN PELVIS: The liver, gallbladder, and adrenal glands show no significant abnormality. The spleen is enlarged, rosa suring 14.4 cm in craniocaudal length. Small appearing pancreas, with calcifica tions in the pancreatic head. No hydronephrosis. The urinary bladder i s decompressed by a Reynolds catheter. An intrauterine contraceptive device is pre sent that appears obliquely positioned within the uterus. A gastric tube is present, terminating i n the distal stomach body, with its side port are proximally in the stomach body. The small bowel loops are nondistended. Mixed attenuation stool/fluid seen diste nding the ascending, transverse and descending colon. Mild segmental mural t hickening of the colon in these regions. No abrupt transition point to suggest la rge bowel obstruction. A rectal tube and rectal temperature probe are noted. Moderate volume ascites. Small foci of g as in the right anterior abdomen (series 6 images 303 and 306). Small recanalized umbilical vein. The ma in portal and splenic veins are patent. No lymphadenopathy. Tiny foci of soft tissue gas in the righ t lower anterior abdominal wall (series 6 image 410). Small fat-containing umbil ical hernia. Mild anasarca. No acute osseous abnormality. Procedure Note Sal Rivera M.D. - 03/12/2021Formattin g of this note might be different from the original. EXAM: CT CHEST WITH IV CONTRAST, CT ABDO MEN PELVIS WITH IV CONTRAST 3D/MIPS: 3D Post-Processing performed on a dependent workstation. COMPARISON: None. FINDINGS: CHEST: Enhancing parenchymal opacities i n the bilateral lower lobes, with associated lower lobe volume loss, favor ed to represent partial lower lobe atelectasis. Small layering right pleura l effusion. 1.5 cm area of groundglass attenuation in the left upper lobe on se berny 8 image 138. Another similar 8 mm focus in the right middle lobe on image 170. Lateral right middle lobe subsegmental atelectasis. Note made of a left upper lobe accessory fissure. No pneumothorax. An endotracheal tube termi nates in the midthoracic trachea. Small amount of mucus in the trachea near the endotracheal tube tip. The central bronchi are clear. The heart is not enlarged. No pericardia l effusion. Within limitation of motion artifact, the thoracic aorta is within n ormal limits in caliber. Right jugular central line. No lymphadenopathy. Subacute appearing fracture of right ant erior ribs 5. No acute osseous abnormality. ABDOMEN PELVIS: The liver, gallbladder, and adrenal glands show no significant abnormality. The spleen is enlarged, rosa suring 14.4 cm in craniocaudal length. Small appearing pancreas, with calcifica tions in the pancreatic head. No hydronephrosis. The urinary bladder i s decompressed by a Reynolds catheter. An intrauterine contraceptive device is pre sent that appears obliquely positioned within the uterus. A gastric tube is present, terminating i n the distal stomach body, with its side port are proximally in the stomach body. The small bowel loops are nondistended. Mixed attenuation stool/fluid seen diste nding the ascending, transverse and descending colon. Mild segmental mural t hickening of the colon in these regions. No abrupt transition point to suggest la rge bowel obstruction. A rectal tube and rectal temperature probe are noted. Moderate volume ascites. Small foci of g as in the right anterior abdomen (series 6 images 303 and 306). Small recanalized umbilical vein. The ma in portal and splenic veins are patent. No lymphadenopathy. Tiny foci of soft tissue gas in the righ t lower anterior abdominal wall (series 6 image 410). Small fat-containing umbil ical hernia. Mild anasarca. No acute osseous abnormality. IMPRESSION: 1. Partial atelectasis of the bilateral lower lobes. Difficult to exclude superimposed infiltrates in the atelecta tic lungs. Two subtle small areas of groundglass attenuation in the left uppe r lobe and right middle lobe, favored to represent minimal infectious/inflammator y change. 2. Moderate volume ascites. Small foci o f intra-abdominal gas in the right anterior abdomen, in the setting of repo rted recent paracentesis. Small right pleural effusion. 3. Proximal large bowel distention with mixed attenuation stool/fluid suggesting possible functional obstructi on. No evidence of mechanical large bowel obstruction. 4. Mild large bowel wall thickening, angelina t may be related to fluid third spacing or possible colitis. No pneumatosis. 5. Small appearing pancreas with pancrea tic head calcifications, suggesting sequelae of chronic pancreatitis. Spleno megaly. Patent portal and splenic veins. 6. Malpositioned appearing intrauterine contraceptive device. 7. Subacute appearing fracture of right anterior fifth rib. Barrera PERALES CT PROCEDURES CT Chest with IV Contrast (03/12/2021 1:50 PM PAN DUMPER) Anatomical Region Laterality Modality Chest, Thoracic RST LOS, Thoracic ARZ LOS, Thoracic N/A Computed Tomography ARZ LOS, Thoracic FLA LOS Specimen (Source) Anatomical Collection Method Collection Time Re ceived Time Location / / Volume Laterality 03/12/2021 2:04 PM PAN DUMPER Impressions 03/12/2021 2:37 PM PAN DUMPER 1. ??Partial atelectasis of the bilatera l lower lobes. Difficult to exclude superimposed infiltrates in the atelecta tic lungs. Two subtle small areas of groundglass attenuation in the left uppe r lobe and right middle lobe, favored to represent minimal infectious/inflammator y change. 2. ??Moderate volume ascites. Small foci of intra-abdominal gas in the right anterior abdomen, in the setting of repo rted recent paracentesis. Small right pleural effusion. 3. ??Proximal large bowel distention wit h mixed attenuation stool/fluid suggesting possible functional obstructi on. No evidence of mechanical large bowel obstruction. 4. ??Mild large bowel wall thickening, t hat may be related to fluid third spacing or possible colitis. No pneumatosis. 5. ??Small appearing pancreas with pancr eatic head calcifications, suggesting sequelae of chronic pancreatitis. Spleno megaly. Patent portal and splenic veins. 6. ??Malpositioned appearing intrauterin e contraceptive device. 7. ??Subacute appearing fracture of righ t anterior fifth rib. Narrative 03/12/2021 2:37 PM PAN DUMPER EXAM: CT CHEST WITH IV CONTRAST, CT ABDOMEN PELVIS WITH IV CONTRAST 3D/MIPS: 3D Post-Processing performed on a dependent workstation. COMPARISON: None. FINDINGS: CHEST: Enhancing parenchymal opacities i n the bilateral lower lobes, with associated lower lobe volume loss, favor ed to represent partial lower lobe atelectasis. Small layering right pleura l effusion. 1.5 cm area of groundglass attenuation in the left upper lobe on se berny 8 image 138. Another similar 8 mm focus in the right middle lobe on image 170. Lateral right middle lobe subsegmental atelectasis. Note made of a left upper lobe accessory fissure. No pneumothorax. An endotracheal tube termi nates in the midthoracic trachea. Small amount of mucus in the trachea near the endotracheal tube tip. The central bronchi are clear. The heart is not enlarged. No pericardia l effusion. Within limitation of motion artifact, the thoracic aorta is within n ormal limits in caliber. Right jugular central line. No lymphadenopathy. Subacute appearing fracture of right ant erior ribs 5. No acute osseous abnormality. ABDOMEN PELVIS: The liver, gallbladder, and adrenal glands show no significant abnormality. The spleen is enlarged, rosa suring 14.4 cm in craniocaudal length. Small appearing pancreas, with calcifica tions in the pancreatic head. No hydronephrosis. The urinary bladder i s decompressed by a Reynolds catheter. An intrauterine contraceptive device is pre sent that appears obliquely positioned within the uterus. A gastric tube is present, terminating i n the distal stomach body, with its side port are proximally in the stomach body. The small bowel loops are nondistended. Mixed attenuation stool/fluid seen diste nding the ascending, transverse and descending colon. Mild segmental mural t hickening of the colon in these regions. No abrupt transition point to suggest la rge bowel obstruction. A rectal tube and rectal temperature probe are noted. Moderate volume ascites. Small foci of g as in the right anterior abdomen (series 6 images 303 and 306). Small recanalized umbilical vein. The ma in portal and splenic veins are patent. No lymphadenopathy. Tiny foci of soft tissue gas in the righ t lower anterior abdominal wall (series 6 image 410). Small fat-containing umbil ical hernia. Mild anasarca. No acute osseous abnormality. Procedure Note Sal Rivera M.D. - 03/12/2021Formattin g of this note might be different from the original. EXAM: CT CHEST WITH IV CONTRAST, CT ABDO MEN PELVIS WITH IV CONTRAST 3D/MIPS: 3D Post-Processing performed on a dependent workstation. COMPARISON: None. FINDINGS: CHEST: Enhancing parenchymal opacities i n the bilateral lower lobes, with associated lower lobe volume loss, favor ed to represent partial lower lobe atelectasis. Small layering right pleura l effusion. 1.5 cm area of groundglass attenuation in the left upper lobe on se berny 8 image 138. Another similar 8 mm focus in the right middle lobe on image 170. Lateral right middle lobe subsegmental atelectasis. Note made of a left upper lobe accessory fissure. No pneumothorax. An endotracheal tube termi nates in the midthoracic trachea. Small amount of mucus in the trachea near the endotracheal tube tip. The central bronchi are clear. The heart is not enlarged. No pericardia l effusion. Within limitation of motion artifact, the thoracic aorta is within n ormal limits in caliber. Right jugular central line. No lymphadenopathy. Subacute appearing fracture of right ant erior ribs 5. No acute osseous abnormality. ABDOMEN PELVIS: The liver, gallbladder, and adrenal glands show no significant abnormality. The spleen is enlarged, rosa suring 14.4 cm in craniocaudal length. Small appearing pancreas, with calcifica tions in the pancreatic head. No hydronephrosis. The urinary bladder i s decompressed by a Reynolds catheter. An intrauterine contraceptive device is pre sent that appears obliquely positioned within the uterus. A gastric tube is present, terminating i n the distal stomach body, with its side port are proximally in the stomach body. The small bowel loops are nondistended. Mixed attenuation stool/fluid seen diste nding the ascending, transverse and descending colon. Mild segmental mural t hickening of the colon in these regions. No abrupt transition point to suggest la rge bowel obstruction. A rectal tube and rectal temperature probe are noted. Moderate volume ascites. Small foci of g as in the right anterior abdomen (series 6 images 303 and 306). Small recanalized umbilical vein. The ma in portal and splenic veins are patent. No lymphadenopathy. Tiny foci of soft tissue gas in the righ t lower anterior abdominal wall (series 6 image 410). Small fat-containing umbil ical hernia. Mild anasarca. No acute osseous abnormality. IMPRESSION: 1. Partial atelectasis of the bilateral lower lobes. Difficult to exclude superimposed infiltrates in the atelecta tic lungs. Two subtle small areas of groundglass attenuation in the left uppe r lobe and right middle lobe, favored to represent minimal infectious/inflammator y change. 2. Moderate volume ascites. Small foci o f intra-abdominal gas in the right anterior abdomen, in the setting of repo rted recent paracentesis. Small right pleural effusion. 3. Proximal large bowel distention with mixed attenuation stool/fluid suggesting possible functional obstructi on. No evidence of mechanical large bowel obstruction. 4. Mild large bowel wall thickening, angelina t may be related to fluid third spacing or possible colitis. No pneumatosis. 5. Small appearing pancreas with pancrea tic head calcifications, suggesting sequelae of chronic pancreatitis. Spleno megaly. Patent portal and splenic veins. 6. Malpositioned appearing intrauterine contraceptive device. 7. Subacute appearing fracture of right anterior fifth rib. Barrera Vargas M.D. IMG CT PROCEDURES CT Head without IV Contrast (03/12/2021 1:49 PM PAN DUMPER) Anatomical Region Laterality Modality Head, Neuroradiology RST [facility], Neuroradiology ARZ [facility], N/A Computed Tomography Neuroradiology FLA [facility] Specimen (Source) Anatomical Collection Method Collection Time Re ceived Time Location / / Volume Laterality 03/12/2021 1:50 PM PAN DUMPER Impressions 03/12/2021 1:52 PM PAN DUMPER No acute CT abnormalities are demonstrated. Narrative 03/12/2021 1:52 PM PAN DUMPER EXAM: CT HEAD WITHOUT IV CONTRAST COMPARISON: March 11, 2021 FINDINGS: There is no evidence of mass e ffect nor edema nor midline shift nor ventriculomegaly nor CT evidence of intr acranial hemorrhage. Procedure Note Silvestre Lovell M.D. - 03/12/2021Forma tting of this note might be different from the original. EXAM: CT HEAD WITHOUT IV CONTRAST COMPARISON: March 11, 2021 FINDINGS: There is no evidence of mass e ffect nor edema nor midline shift nor ventriculomegaly nor CT evidence of intr acranial hemorrhage. IMPRESSION: No acute CT abnormalities are demonstrat ed. Barrera Vargas M.D. IMG CT PROCEDURES Cytology Non-HEAVY TRUCK TECHNICIAN (03/12/2021 1:11 PM PAN DUMPER) Component Value Ref Test Analysis Performed At [facility] Method Time Signature /14/2021 [facility] 12:37 PM PAN DUMPER Report Lloyd Alfaro MD 03/14/2021 [facility] electronically 12:37 PM signed by PAN DUMPER I verify that I have examined all relevant slides/materials for the specimen(s) and rendered or confirmed the diagnosis. Gross Description 800 ml cloudy brownish red fluid received. ??60 m l fixed 03/14/2021 HK with 70% ETOH 03-12-21 @ 15:30 12:37 PM 2 slides and cell block prepared. PAN DUMPER Source A. Pleural, 03/14/2021 [facility] Right, fluid 12:37 PM PAN DUMPER Interpretation A. Pleural, Right, fluid (smears/cell block): Negati ve for 03/14/2021 HK malignancy. 12:37 PM PAN DUMPER Specimen Anatomical Collection Method Collection Time Receive d Time (Source) Location / / Volume Laterality Varies 03/12/2021 1:11 PM 6:20 PAN DUMPER AM PAN DUMPER Narrative This result has an attachment that is no t available. Barrera Vargas M.D. LAB SURG PATH ORDERABLES Performing Organization Address City/State/ZIP Code Phon e Number [facility] [place] [address] [facility] [place] [place] [address] System [facility] [address] [place] [address] ECG 12 Lead (03/12/2021 1:01 PM PAN DUMPER) P athologist Signature Ventricular Rate 84 BPM MUSE ECG/Min NV Interval 166 ms MUSE QRSD Interval 92 ms MUSE QT Interval 436 ms MUSE QTC Interval 516 ms MUSE P [place] 62 degrees MUSE R [place] 43 degrees MUSE T Wave [place] -20 degrees MUSE Specimen Anatomical Collection Method Collection Time Receive d Time (Source) Location / / Volume Laterality 03/12/2021 1:01 PM 1:24 PAN DUMPER PM PAN DUMPER Impressions MUSE - 03/12/2021 1:21 PM PAN DUMPER Normal sinus rhythm ST and T wave abnormality, consider ante rolateral ischemia Prolonged QT No previous ECGs available Reviewed by STERLING Prasad Narrative This result has an attachment that is no t available. Procedure Note Elijah Roberts M.D. - 03/12/2021Formatt ing of this note might be different from the original. IMPRESSION: Normal sinus rhythm ST and T wave abnormality, consider ante rolateral ischemia Prolonged QT No previous ECGs available Reviewed by STERLING Prasad Nunu Sanches P.A.-C., M.S. ECG ORDERABLES Performing Organization Address City/State/ZIP Code Phon e Number MUSE MUSE NA DX Chest Portable 1 View (03/12/2021 1:00 PM PAN DUMPER) Anatomical Region Laterality Modality Chest, Thoracic RST LOS, Thoracic ARZ LOS, Thoracic N/A Digital Radiography FLA LOS Specimen (Source) Anatomical Collection Method Collection Time Re ceived Time Location / / Volume Laterality 03/12/2021 1:12 PM PAN DUMPER Impressions 03/12/2021 1:14 PM PAN DUMPER 1. New endotracheal tube with tip positioned appropriately at the level of the clavicular heads. 2. New right IJ central venous catheter with tip positioned in the mid SVC. 3. New nasogastric tube with tip positio foreign in the mid stomach. 4. No pneumothorax status post right tho racentesis. 5. Marked interval decrease in right ple ural effusion with associated atelectasis. 6. No acute airspace disease. Narrative 03/12/2021 1:14 PM PAN DUMPER EXAM: DX CHEST PORTABLE 1 VIEW COMPARISON: 03/12/2021 FINDINGS: There is new endotracheal tube with tip positioned at the level of the clavicular heads. There is a new right I J central venous catheter with tip positioned in the mid SVC. There is a ne w nasogastric tube with tip positioned in the mid stomach. The heart size and t he pulmonary vascularity are within normal limits. There is no pneumothorax. No acute airspace opacity is observed. There has been near complete interval re solution of the moderate to large right pleural effusion with associated atelect asis status post right thoracentesis. Procedure Note Davy Whittington M.D. - 03/12/2021Form atting of this note might be different from the original. EXAM: DX CHEST PORTABLE 1 VIEW COMPARISON: 03/12/2021 FINDINGS: There is new endotracheal tube with tip positioned at the level of the clavicular heads. There is a new right I J central venous catheter with tip positioned in the mid SVC. There is a ne w nasogastric tube with tip positioned in the mid stomach. The heart size and t he pulmonary vascularity are within normal limits. There is no pneumothorax. No acute airspace opacity is observed. There has been near complete interval re solution of the moderate to large right pleural effusion with associated atelect asis status post right thoracentesis. IMPRESSION: 1. New endotracheal tube with tip positi oned appropriately at the level of the clavicular heads. 2. New right IJ central venous catheter with tip positioned in the mid SVC. 3. New nasogastric tube with tip positio foreign in the mid stomach. 4. No pneumothorax status post right tho racentesis. 5. Marked interval decrease in right ple ural effusion with associated atelectasis. 6. No acute airspace disease. Barrera Vargas M.D. IMG DIAGNOSTIC IMAGING P ROCEDURES Testing Location (03/12/2021 12:59 PM PAN DUMPER) athologist Signature Testing [facility] DEFAULT 03/12/2021 MKTO Location 1:05 PM PAN DUMPER Specimen Anatomical Collection Method Collection Time Receive d Time (Source) Location / / Volume Laterality Blood 03/12/2021 12:59 03/12/2021 1:05 PM PAN DUMPER PM PAN DUMPER Barrera Vargas M.D. LAB BLOOD BANK TEST YO ELISE Performing Organization Address City/[facility]/ZIP Code Phon e Number [address] [address] [place] [address] System [address] (ABNORMAL) Bilirubin, Direct (03/12/2021 12:59 PM PAN DUMPER) athologist Signature Bilirubin, 2.7 (H) 0.0 - 0.3 03/12/2021 MKTO Direct, P mg/dL 1:40 PM PAN DUMPER Specimen Anatomical Collection Method Collection Time Receive d Time (Source) Location / / Volume Laterality Blood (Blood, 03/12/2021 12:59 03/12/2021 1:08 Venous) PM PAN DUMPER PM PAN DUMPER Sera Morgan P.A.-C. LAB BLOOD ADD-ON Performing Organization Address City/[facility]/ZIP Code Phon e Number [facility]- [address] [place] [id number] [place] [address] Patient Status (03/12/2021 12:59 PM PAN DUMPER) P athologist Signature FIO2 0.50 0.21=AIR 03/12/2021 1:09 MKTO PM PAN DUMPER Specimen Anatomical Collection Method Collection Time Receive d Time (Source) Location / / Volume Laterality Blood 03/12/2021 12:59 03/12/2021 1:04 PM PAN DUMPER PM PAN DUMPER Barrera Vargas M.D. LAB BLOOD NON ADD-ON Performing Organization Address City/State/ZIP [place] Phon e Number [facility]- [address] [place] [id number] [facility] [place] [address] Lactate, B (03/12/2021 12:59 PM PAN DUMPER) athologist Signature Lactate, B 2.2 0.5 - 2.2 03/12/2021 MKTO mmol/L 1:09 PM PAN DUMPER Specimen Anatomical Collection Method Collection Time Receive d Time (Source) Location / / Volume Laterality Blood 03/12/2021 12:59 03/12/2021 1:05 PM PAN DUMPER PM PAN DUMPER Barrera Vargas M.D. LAB BLOOD NON ADD-ON Performing Organization Address City/State/[facility] Code Phon e Number [facility]- [address] [place] [phone] [facility] [place] [address] (ABNORMAL) Blood Gas with Coox, Arterial (03/12/2021 12:59 PM PAN DUMPER) P athologist Signature P O2 102 83 - 108 03/12/2021 MKTO mm Hg 1:09 PM PAN DUMPER P CO2 31 (L) 32 - 45 mm 03/12/2021 MKTO Hg 1:09 PM PAN DUMPER pH 7.47 (H) 7.35 - 03/12/2021 MKTO 7.45 pH 1:09 PM PAN DUMPER Base Excess -1 -2 - 3 03/12/2021 MKTO mmol/L 1:09 PM PAN DUMPER HCO3 23 22 - 26 03/12/2021 MKTO mmol/L 1:09 PM PAN DUMPER Hemoglobin, B 6.5 (L) 11.6 - 03/12/2021 MKTO 15.0 g/dL 1:09 PM PAN DUMPER O2Hb 96.9 94.0 - 03/12/2021 MKTO 98.0 % 1:09 PM PAN DUMPER COHb 1.8 <3.0 % 03/12/2021 MKTO 1:09 PM PAN DUMPER MetHb 0.0 <1.5 % 03/12/2021 MKTO 1:09 PM PAN DUMPER CtO2 9.1 (L) 18.0 - 03/12/2021 MKTO 21.0 vol % 1:09 PM PAN DUMPER Arterial Art Line 03/12/2021 MKTO Sample Site 1:09 PM PAN DUMPER Comment: Michael's test not done. Specimen Anatomical Collection Method Collection Time Receive d Time (Source) Location / / Volume Laterality Blood (Blood, 03/12/2021 12:59 03/12/2021 1:04 Arterial) PM PAN DUMPER PM PAN DUMPER Barrera Vargas M.D. LAB BLOOD NON ADD-ON Performing Organization Address City/[facility] Phon e Number [facility]- [address] [place] [address] [place] [address] [address] Type and Screen (with reflex Antibody ID) (03/12/2021 12:59 PM PAN DUMPER) [facility] Method Time Signature ABO Group B 03/12/2021 MKTO 1:45 PM PAN DUMPER Rh Type POS 03/12/2021 MKTO 1:45 PM PAN DUMPER Antibody Screen NEG 03/12/2021 MKTO 1:45 PM PAN DUMPER Type & Screen 03/15/2021 03/12/2021 MKTO Expiration 23:59 1:45 PM PAN DUMPER ELXM Eligible Y 03/12/2021 MKTO 1:45 PM PAN DUMPER Specimen Anatomical Collection Method Collection Time Receive d Time (Source) Location / / Volume Laterality Blood (Blood, 03/12/2021 12:59 03/12/2021 1:05 Venous) PM PAN DUMPER PM PAN DUMPER Barrera Vargas M.D. LAB BLOOD BANK TEST ORDE RABEAGLE Performing Organization Address City/State/ZIP Code Phon e Number [facility]- [address] [place] [phone] [place] [address] LD (Lactate Dehydrogenase) (03/12/2021 12:59 PM PAN DUMPER) Analysis Performed At Patho logist Time Signature Lactate 218 122 - 222 03/12/2021 MKTO Dehydrogenase U/L 1:39 PM PAN DUMPER (LD), P Specimen Anatomical Collection Method Collection Time Receive d Time (Source) Location / / Volume Laterality Blood (Blood, 03/12/2021 12:59 03/12/2021 1:26 Venous) PM PAN DUMPER PM PAN DUMPER Barrera Vargas M.D. LAB BLOOD NON ADD-ON Performing Organization Address City/[facility] Phon e Number [facility]- [address] [place] [phone] [place] [address] Cytology Non-HEAVY TRUCK TECHNICIAN (03/12/2021 12:39 PM PAN DUMPER) Component Value Ref Test Analysis Performed At Patholo gist Range Method Time Signature 03/14/2021 [facility] 12:36 PM PAN DUMPER Report Lloyd Alfaro MD 03/14/2021 [facility] electronically 12:36 PM signed by PAN DUMPER I verify that I have examined all relevant slides/materials for the specimen(s) and rendered or confirmed the diagnosis. Gross Description 925 ml of cloudy hinson yellow fluid received. ?? Specimen 03/14/2021 [facility] fixed @ 2:00 pm on 03-12-2021. 12:36 PM 2 slides and cell block prepared. PAN DUMPER Collection Paracentesis 03/14/2021 [facility] Procedure 12:36 PM PAN DUMPER Source A. Peritoneal, 03/14/2021 [facility] fluid 12:36 PM PAN DUMPER Interpretation A. Peritoneal, fluid (smears/cell block): Negative f or 03/14/2021 [facility] malignancy. 12:36 PM PAN DUMPER Specimen Anatomical Collection Method Collection Time Receive d Time (Source) Location / / Volume Laterality Varies 03/12/2021 12:39 03/12/2021 2:00 PM PAN DUMPER PM PAN DUMPER Narrative This result has an attachment that is no t available. Barrera Vargas M.D. LAB SURG PATH ORDERABLES Performing Organization Address City/State/ZIP Code Phon e Number [facility]- [address] [place] [address] [facility] [place] [address] [facility] Cytology [address] [facility] Lactate Dehydrogenase (LD), Body Fluid (03/12/2021 12:35 PM PAN DUMPER) Patholo gist Method Time Signature Lactate 84 See Comment 03/13/2021 DTL Dehydrogenase U/L 11:50 AM PAN DUMPER (LD), BF Comment: ----ADDITIONAL INFORMATION---- Pleural fluid lactate dehydrogenase (LDH ) to serum LDH ratio >0.6 are most consistent with exudative effus ions. Peritoneal fluid LDH > 220 U/L suggest s econdary rather than spontaneous bacterial peritonitis in con junction with other laboratory, imaging, and clinical findin gs. Synovial fluid lactate dehydrogenase (LD H) may be elevated greater than plasma or serum LDH due to inflamma tory causes. Values should be interpreted in conjunction with other clinical findings. All other fluids refer to [email or web address] for further interpretive information. This test has been modified from the divernon ufacturer's instructions. Its performance characteristics were det ermined by [facility] in a manner consistent with CLIA requirements . This test has not been cleared or approved by the U.S. Food and Drug Administration. Fluid Type, Lactate Pleural Fluid, Right 1 10:15 AM PAN DUMPER DTL Dehydrogenase Specimen Anatomical Collection Method Collection Time Receive d Time (Source) Location / / Volume Laterality Fluid (Pleural 03/12/2021 12:35 1 8:56 Fluid, Right) PM PAN DUMPER AM PAN DUMPER Barrera Vargas M.D. LAB BODY FLUIDS AND STOO LS ORDERABLES Performing Organization Address City/[facility]/ZIP Code Phon e Number [facility] - [address] [place], [place] [address] [facility] [place] [address] [facility] [address] Protein, Total, Body Fluid (03/12/2021 12:35 PM PAN DUMPER) athologist Signature Protein, 1.5 See Comment 03/13/2021 DTL Total, BF g/dL 11:50 AM PAN DUMPER Comment: ----ADDITIONAL INFORMATION---- A pleural fluid total [...] ical findings. All other fluids refer to [email or web address] for further inter pretive information. This test has been modified from the sugar refiner's instructions. Its perform ance characteristics were determined by [facility] in a manner consistent with CLIA require ments. This test has not been cleared or approv ed by the U.S. Food and Drug Administration. Fluid Type, Protein, Total Pleural Fluid, Right 10:15 AM PAN DUMPER DTL Specimen Anatomical Collection Method Collection Time Receive d Time (Source) Location / / Volume Laterality Fluid (Pleural 03/12/2021 12:35 1 8:56 Fluid, Right) PM PAN DUMPER AM PAN DUMPER Barrera Vargas M.D. LAB BODY FLUIDS AND STOO LS ORDERABLES Performing Organization Address City/State/ZIP Code Phon e Number [facility] - [address] [place], [place] [address] [facility] [place] [address] [facility] [address] Glucose, Body Fluid (03/12/2021 12:34 PM PAN DUMPER) P athologist Signature Glucose, BF 124 See Comment 03/13/2021 DTL mg/dL 11:44 AM PAN DUMPER Comment: ----ADDITIONAL INFORMATION---- Body fluid glucose concentrations may be decreased due to increased cellular metabolism and should be interpreted in the context of blood glucose concentrati ons and in conjunction with other laboratory and cl inical findings. Pleural, Peritoneal, and Pericardial flu id and serum glucose concentrations are similar in th e absence of infection. Synovial fluid glucose concentrations ar e similar to fasting blood glucose concentrations or approximately 50% of the non-fasting serum glucose concent ration under normal conditions. Values below this can be see n with infection. Amniotic fluid glucose <16 mg/dL is sugg estive of infection. All other fluids refer to [email or web address] for further inter pretive information. This test has been modified from the man ufacturer's instructions. Its performance characteri stics were determined by [facility] in a manner co nsistent with CLIA requirements. This test has not been norah ared or approved by the U.S. Food and Drug Administration. Fluid Type, Glucose Pleural Fluid, Right 1 10:14 AM PAN DUMPER DTL Specimen Anatomical Collection Method Collection Time Receive d Time (Source) Location / / Volume Laterality Fluid (Pleural 03/12/2021 12:34 1 8:55 Fluid, Right) PM PAN DUMPER AM PAN DUMPER Barrera Vargas M.D. LAB BODY FLUIDS AND STOO LS ORDERABLES Performing Organization Address City/[facility]/ZIP Code Phon e Number [facility] - [address] [place], [place] [address] [facility] [place] [address] [facility] [address] Gram Stain (03/12/2021 12:34 PM PAN DUMPER) Patholo gist Method Time Signature Gram Stain No organisms seen. 03/12/2021 MKTO White blood cells present. 4:46 PM PAN DUMPER Stain performed on concentrated cytospin preparation. Specimen Anatomical Collection Method Collection Time Receive d Time (Source) Location / / Volume Laterality Fluid (Pleural 03/12/2021 12:34 1 1:08 Fluid, Right) PM PAN DUMPER PM PAN DUMPER Comment: Specimen Source Site: Fluid Barrera Vargas M.D. LAB MICROBIOLOGY - GENER AL ORDERABLES Performing Organization Address City/State/ZIP Code Phon e Number [facility]- [address] [place] [address] [place] [address] System in [place] [address] [facility] Cell Count and Differential, Body Fluid (03/12/2021 12:34 PM PAN DUMPER) Patholo gist Method Time Signature Fluid Type Pleural/Thor 03/12/2021 MKTO acentesis 2:12 PM PAN DUMPER Gross Slightly 03/12/2021 MKTO Appearance Cloudy 2:13 PM PAN DUMPER Total 350 /mcL 03/12/2021 MKTO Nucleated 2:13 PM PAN DUMPER Cells Comment: ----REFERENCE VALUE---- Synovial: <150 Peritoneal: <500 Pleural: <500 Pericardial: <500 ----ADDITIONAL INFORMATION---- This test has been modified from the man ufacturer's instructions. Its performance characteri stics were determined by [facility] in a manner co nsistent with CLIA requirements. This test has not bee n cleared or approved by the U.S. Food and Drug Admin istration. Neutrophils 4 % 03/12/2021 2:47 PM PAN DUMPER MKTO Comment: ----REFERENCE VALUE---- Synovial: <25% Peritoneal: <25% Pleural: <25% Pericardial: <25% Lymphocytes 13 Synovial: <75% % 03/12/2021 2:47 PM CS T MKTO Monocytes/Macrophages 76 Synovial: <70% % 03/12/2021 2:47 PM PAN DUMPER MKTO Other Cells 7 % 03/12/2021 2:47 PM PAN DUMPER MKTO Comment: ----REFERENCE VALUE---- The reference range and other method per formance specifications have not been established for this body fluid. The test result must be integrate d into the clinical context for interpretation. Other Cells Are: Mesothelial cells 03/12/2021 2:47 PM PAN DUMPER MKTO Reviewed by: Dr. Joshua Castrejon 03/12/2021 2:47 PM CS T MKTO Specimen Anatomical Collection Method Collection Time Receive d Time (Source) Location / / Volume Laterality Fluid (Pleural 03/12/2021 12:34 1:08 Fluid, Right) PM PAN DUMPER PM PAN DUMPER Barrera Vargas M.D. LAB BODY FLUIDS AND STOO LS ORDERABLES Performing Organization Address City/State/ZIP Code Phon e Number [facility]- [facility] [place] [address] [facility] [place] [address] System in [place] [address] [place] [address] Bacterial Culture, Anaerobic + Susc (03/12/2021 12:34 PM PAN DUMPER) [facility] Method Time Signature Bacterial No growth 03/19/2021 MKTO Culture, after 7 8:26 AM PAN DUMPER Anaerobic days of incubation. Specimen Anatomical Collection Method Collection Time Receive d Time (Source) Location / / Volume Laterality Fluid (Pleural 03/12/2021 12:34 1 1:08 Fluid, Right) PM PAN DUMPER PM PAN DUMPER Comment: Specimen Source Site: Fluid Barrera Vargas M.D. LAB MICROBIOLOGY - GENER AL ORDERABLES Performing Organization Address City/[facility]/ZIP [place] Phon e Number [facility]- [facility] [place] [address] [place] [address] System in [place] [address] [place] [address] Bacterial Culture, Aerobic + Susc (03/12/2021 12:34 PM PAN DUMPER) [facility] Method Time Signature Bacterial No growth 03/17/2021 MKTO Culture, after 5 7:38 AM PAN DUMPER Aerobic + Susc days of incubation. Specimen Anatomical Collection Method Collection Time Receive d Time (Source) Location / / Volume Laterality Fluid (Pleural 03/12/2021 12:34 1 1:08 Fluid, Right) PM PAN DUMPER PM PAN DUMPER Comment: Specimen Source Site: Fluid Barrera Vagras M.D. LAB MICROBIOLOGY - GENER AL ORDERABLES Performing Organization Address City/[facility] Phon e Number [facility]- [address] [place] [address] [place] [address] System in [place] [address] [place] [address] Influenza A/B and RSV, PCR, Varies (03/12/2021 11:00 AM PAN DUMPER) [facility] Method Time Signature Influenza A/B Swab, 03/13/2021 DTL and RSV, Nasopharynx 11:55 AM Source PAN DUMPER Influenza A, Undetected Undetected 03/13/2021 DTL PCR 11:55 AM PAN DUMPER Comment: Influenza A RNA absent. Influenza B, PCR Undetected Undetected 03/13/2021 11:[address] DTL Comment: Influenza B RNA absent. Respiratory Syncytial Virus, Undetected Undetected 11:55 AM PAN DUMPER DTL PCR Comment: RSV RNA absent. ----ADDITIONAL INFORMATION---- This test has been modified from the [facility] hospitalacturer's instructions. Its performance characteristics were determi foreign by [facility] in a manner consistent with CLIA requirements. This test has not been cleared or approved by the U.S. Food and Drug Administration . Specimen Anatomical Collection Method Collection Time Receive d Time (Source) Location / / Volume Laterality Varies 03/12/2021 11:00 03/13/2021 7:12 (Nasopharynx) AM PAN DUMPER AM PAN DUMPER Nunu Sanches P.A.-C. M.S. LAB MICROBIOLOGY - GENE [facility] ORDERABLES Performing Organization Address City/State/ZIP Code Phon e Number [facility] - [address] [place], [place] [address] [facility] [place] [address] [facility] [address] [facility] SARS Coronavirus-2 RNA, V Symptomatic (03/12/2021 11:00 AM PAN DUMPER) [facility] Method Time Signature SARS-CoV-2 Swab, 03/12/2021 MKTO Specimen Nasopharynx 7:30 PM PAN DUMPER Source SARS CoV-2 Undetected Undetected 03/12/2021 MKTO RNA, TMA 7:30 PM PAN DUMPER Comment: SARS-CoV-2 RNA absent. This result does not rule out COVID-19 in the patient, as the sensitivity of the test depends o n the timing of the specimen collection and the quality of the specim en. Result should be correlated with patient's history and clinical presentat ion. ----ADDITIONAL INFORMATION---- This molecular amplification test was pe rformed using the Aptima SARS-CoV-2 assay ([employer] on the [employer] tem under emergency use authorization (EUA) by the U.S. Food and Drug Administ ration. Fact sheets for this EUA assay can be fo und at the following links: For Healthcare Providers: https://www.fd a.gov/media/201126/download For Patients: https://www.fda.gov/media/ 468984/download Specimen Anatomical Collection Method Collection Time Receive d Time (Source) Location / / Volume Laterality Varies 03/12/2021 11:00 03/12/2021 (Nasopharynx) AM PAN DUMPER 11:05 AM PAN DUMPER Nunu Sanches P.A.-C. M.S. LAB MICROBIOLOGY - GENE RAL ORDERABLES Performing Organization Address City/State/ZIP Code Phon e Number [facility]- [address] [place] [address] [facility] [place] [address] System in [place] [address] [facility] [place] ARTL CATH/CNULA MONITOR PERC, LDA ANE ARTERIAL LINE INSERTION (03/12/2021 10:45 AM PAN DUMPER) Narrative Barrera To M.D. - 2020 10:45 AM PAN DUMPER Barrera To M.D. ? 03/12/2021 ??6:09 PM Invasive Line Date/Time: 03/12/2021 10:45 AM Performed by: Barrera To M.D. Authorized by: Barrera To M.D. Location: ICU/PCU PROCEDURE DETAILS: Line type: arterial ?? Laterality: right Location: radial Location details: new site ? Age group: adult Catheter diameter: 18 Ga Technique: ultrasound guided ?? Ultrasound guidance: image not saved Number of attempts: 1 CONSENT Consent obtained: verbal Consent given by: parent (mom ) The benefits, risks and alternatives to the [...] was done as applicable. The procedural time-out w as conducted prior to performing the procedure and confirmed in a procedu ral pause. PRE-PROCEDURE DETAILS: Indication(s): hemodynamic monitoring Appropriate hand hygiene, gown, cap, mas k, protective eyewear, sterile gloves, skin preparation, sterile drape, and strict aseptic technique were utilized as applicable for the procedure .: yes ?? Skin preparation: chlorhexidine ?? SEDATION / ANESTHESIA Anesthesia method: topical application Topical application type: lidocaine POST-PROCEDURE DETAILS: Procedure completed successfully: yes ?? Line secured: secured with sutureless de vice Chlorhexidine disc around insertion site and under catheter with slight turn: yes ?? Complications - arterial: none Barrera Vargas M.D. PROCEDURE/MINOR SURGICAL ORDERABLES Patient Status (03/12/2021 7:10 AM PAN DUMPER) P athologist Signature FIO2 0.50 0.21=AIR 03/12/2021 7:37 MKTO AM PAN DUMPER Specimen Anatomical Collection Method Collection Time Receive d Time (Source) Location / / Volume Laterality Blood 03/12/2021 7:10 AM 7:30 PAN DUMPER AM PAN DUMPER Nunu Sanches P.A.-C., M.SSuma LAB BLOOD NON ADD-ON Performing Organization Address City/State/ZIP Code Phon e Number [facility]- [address] [place] [address] [place] [address] System in [address] (ABNORMAL) Blood Gas with Coox, Arterial (03/12/2021 7:10 AM PAN DUMPER) P athologist Signature P O2 77 (L) 83 - 108 03/12/2021 MKTO mm Hg 7:37 AM PAN DUMPER P CO2 20 (CL) 32 - 45 mm 03/12/2021 MKTO Hg 7:37 AM PAN DUMPER pH 7.53 (H) 7.35 - 03/12/2021 MKTO 7.45 pH 7:37 AM PAN DUMPER Base Excess -5 (L) -2 - 3 03/12/2021 MKTO mmol/L 7:37 AM PAN DUMPER HCO3 17 (L) 22 - 26 03/12/2021 MKTO mmol/L 7:37 AM PAN DUMPER Hemoglobin, B 7.6 (L) 11.6 - 03/12/2021 MKTO 15.0 g/dL 7:37 AM PAN DUMPER O2Hb 95.2 94.0 - 03/12/2021 MKTO 98.0 % 7:37 AM PAN DUMPER COHb 1.6 <3.0 % 03/12/2021 MKTO 7:37 AM PAN DUMPER MetHb 0.0 <1.5 % 03/12/2021 MKTO 7:37 AM PAN DUMPER CtO2 10.3 (L) 18.0 - 03/12/2021 MKTO 21.0 vol % 7:37 AM PAN DUMPER Arterial R-Radial 03/12/2021 MKTO Sample Site 7:37 AM PAN DUMPER Specimen Anatomical Collection Method Collection Time Receive d Time (Source) Location / / Volume Laterality Blood (Blood, 03/12/2021 7:10 AM 03/12/20 7:30 Arterial) PAN DUMPER AM PAN DUMPER Nunu Sanches P.A.-C., M.S. LAB BLOOD NON ADD-ON Performing Organization Address City/[facility] Phon e Number [address] [address] [facility] [place] [id number] System in [address] (ABNORMAL) Lactate, B (03/12/2021 7:10 AM PAN DUMPER) P athologist Signature Lactate, B 9.3 (H) 0.5 - 2.2 03/12/2021 MKTO mmol/L 7:38 AM PAN DUMPER Specimen Anatomical Collection Method Collection Time Receive d Time (Source) Location / / Volume Laterality Blood 03/12/2021 7:10 AM 7:30 PAN DUMPER AM PAN DUMPER Nunu Sanches P.A.-C., M.S. LAB BLOOD NON ADD-ON Performing Organization Address City/[facility] Phon e Number [address] [address] [place] [address] System in [address] Bacteria / Raudel Culture, Blood #2 (03/12/2021 7:10 AM PAN DUMPER) Patholo gist Method Time Signature Bacteria/Adriana No growth 03/17/2021 MKTO da Culture, after 5 8:05 AM PAN DUMPER Blood day/s of incubation. Specimen (Source) Anatomical Collection Method Collection Time Re ceived Time Location / / Volume Laterality Blood (Blood, 03/12/2021 7:10 03/12/2021 7:31 Peripheral Draw) AM PAN DUMPER AM PAN DUMPER Comment: Specimen Source Site: Blood Nunu Sanches P.A.-C., M.S. LAB MICROBIOLOGY - GENE RAL ORDERABLES Performing Organization Address City/State/ZIP Code Phon e Number [facility]- [facility] [place] [address] [facility] [place] [address] System in [place] [address] [facility] DX Chest Portable 1 View (03/12/2021 6:24 AM PAN DUMPER) Anatomical Region Laterality Modality Chest, Thoracic RST LOS, Thoracic ARZ LOS, Thoracic N/A Digital Radiography FLA LOS Specimen (Source) Anatomical Collection Method Collection Time Re ceived Time Location / / Volume Laterality 03/12/2021 7:25 AM PAN DUMPER Impressions 03/12/2021 7:27 AM PAN DUMPER Large right pleural effusion and right-sided consolidation. Centrally obstructing process within [facility] nchus is not excluded. Narrative 03/12/2021 7:27 AM PAN DUMPER EXAM: DX CHEST PORTABLE 1 VIEW COMPARISON: 03/12/2021 at 0101 hrs. FINDINGS: There is redemonstration of a large right pleural effusion. Associated consolidative change in the right lung i s present. Left lung is clear. Heart and mediastinum are unremarkable. Procedure Note Silvestre Lovell M.D. - 03/12/2021Forma tting of this note might be different from the original. EXAM: DX CHEST PORTABLE 1 VIEW COMPARISON: 03/12/2021 at 0101 hrs. FINDINGS: There is redemonstration of a large right pleural effusion. Associated consolidative change in the right lung i s present. Left lung is clear. Heart and mediastinum are unremarkable. IMPRESSION: Large right pleural effusion and right-s ided consolidation. Centrally obstructing process within [facility] nchus is not excluded. Nunu Sanches P.A.-C., M.S. IMG DIAGNOSTIC IMAGING PROCEDURES (ABNORMAL) Microscopic Automated (03/12/2021 6:23 AM PAN DUMPER) P athologist Signature White Blood Occ-3 /hpf 03/12/2021 MKTO Cells 7:18 AM PAN DUMPER Comment: ----REFERENCE VALUE---- Males: 0-3 Females: 0-10 Unknown: 0-10 Red Blood Cells 3-10 (A) 0 - 2 /hpf 03/12/2021 7:18 AM PAN DUMPER MKTO Dysmorphic Red Blood Cells <=25 <=25 % 03/12/2021 7: 18 AM PAN DUMPER MKTO Hyaline Casts 4-10 /lpf 03/12/2021 7:18 AM PAN DUMPER MKT O Squamous Cells Occ-3 /hpf 03/12/2021 7:18 AM PAN DUMPER MK TO Specimen Anatomical Collection Method Collection Time Receive d Time (Source) Location / / Volume Laterality Urine 03/12/2021 6:23 AM 6:47 PAN DUMPER AM PAN DUMPER Nunu Sanches P.A.-C., M.S. LAB URINE ORDERABLES Performing Organization Address City/[facility] Phon e Number [address] [address] [place] [address] MRSA PCR, Nasal (03/12/2021 6:23 AM PAN DUMPER) athologist Signature MRSA Screen, Negative Negative 03/12/2021 MKTO Nasal by PCR 10:50 AM PAN DUMPER Specimen Anatomical Collection Method Collection Time Receive d Time (Source) Location / / Volume Laterality Swab (Nares) 03/12/2021 6:23 AM 6:47 PAN DUMPER AM PAN DUMPER Nunu Sanches P.A.-C., M.S. LAB MICROBIOLOGY - GENE RAL ORDERABLES Performing Organization Address [facility] Campus/[facility] Phon e Number [address] [address] [place] [address] (ABNORMAL) Urinalysis with Microscopic if Indicated (03/12/2021 6:23 AM PAN DUMPER) athologist Signature Source Urine, 03/12/2021 MKTO Urine, 6:56 AM PAN DUMPER Clean Catch Clarity Clear Clear 03/12/2021 MKTO 6:56 AM PAN DUMPER Color Priscilla 03/12/2021 MKTO 6:56 AM PAN DUMPER Comment: ----REFERENCE VALUE---- Colorless Yellow Priscilla Blood Negative Negative 03/12/2021 6:56 AM PAN DUMPER MKTO Nitrite Negative Negative 03/12/2021 6:56 AM PAN DUMPER MKTO Leukocyte Esterase Small (A) Negative 03/12/2021 6:56 AM CS T MKTO Protein Trace mg/dL 03/12/2021 6:56 AM PAN DUMPER MKTO Comment: ----REFERENCE VALUE---- Negative Trace Glucose Negative Negative mg/dL 03/12/2021 6:56 AM PAN DUMPER MK TO Ketone Trace (A) Negative mg/dL 03/12/2021 6:56 AM PAN DUMPER MK TO Bilirubin Moderate (A) Negative 03/12/2021 6:56 AM PAN DUMPER MKTO pH 6.0 5.0 - 8.0 03/12/2021 6:56 AM PAN DUMPER MKTO Specific [place] 1.016 1.001 - 1.035 03/12/2021 6:56 AM PAN DUMPER MKTO Urobilinogen 1.0 0.2 - 1.0 mg/dL 03/12/2021 6:56 AM CS T MKTO Specimen Anatomical Collection Method Collection Time Receive d Time (Source) Location / / Volume Laterality Urine (Urine, 03/12/2021 6:23 AM 03/12/20 6:47 Clean Catch) PAN DUMPER AM PAN DUMPER Nunu Sanches P.A.-C., M.S. LAB URINE ORDERABLES Performing Organization Address City/State/ZIP Code Phon e Number [facility]- [address] [place] [address] [place] [address] [address] (ABNORMAL) Drug Screen Urine (03/12/2021 6:23 AM PAN DUMPER) P athologist Signature Amphetamines, Negative Negative 03/12/2021 MKTO U 7:18 AM PAN DUMPER Comment: ----ADDITIONAL INFORMATION---- Turning Lathe Tender's Cutoff: 500 ng/mL Barbiturates, U Negative Negative 03/12/2021 7:18 AM PAN DUMPER M KTO Comment: ----ADDITIONAL INFORMATION---- Turning Lathe Tender's Cutoff: 200 ng/mL Benzodiazepines, U Negative Negative 03/12/2021 7:18 AM CS T MKTO Comment: ----ADDITIONAL INFORMATION---- Turning Lathe Tender's Cutoff: 150 ng/mL Buprenorphine, U Negative Negative 03/12/2021 7:18 AM PAN DUMPER MKTO Comment: ----ADDITIONAL INFORMATION---- Turning Lathe Tender's Cutoff: 10 ng/mL Cocaine, U Negative Negative 03/12/2021 7:18 AM PAN DUMPER MKTO Comment: ----ADDITIONAL INFORMATION---- Turning Lathe Tender's Cutoff: 150 ng/mL Methadone, U Negative Negative 03/12/2021 7:18 AM PAN DUMPER MKTO Comment: ----ADDITIONAL INFORMATION---- Turning Lathe Tender's Cutoff: 200 ng/mL Methamphetamines, U Negative Negative 03/12/2021 7:[address] MKTO Comment: ----ADDITIONAL INFORMATION---- Turning Lathe Tender's Cutoff: 500 ng/mL Opiates, U Negative Negative 03/12/2021 7:18 AM PAN DUMPER MKTO Comment: ----ADDITIONAL INFORMATION---- Turning Lathe Tender's Cutoff: 100 ng/mL Oxycodone, U Unconfirmed Positive (A) Negative 03/12/2021 7 :18 AM PAN DUMPER MKTO Comment: ----ADDITIONAL INFORMATION---- Turning Lathe Tender's Cutoff: 100 ng/mL Phencyclidine, U Negative Negative 03/12/2021 7:18 AM PAN DUMPER MKTO Comment: ----ADDITIONAL INFORMATION---- Turning Lathe Tender's Cutoff: 25 ng/mL Propoxyphene, U Negative Negative 03/12/2021 7:18 AM PAN DUMPER M TREVONO Comment: ----ADDITIONAL INFORMATION---- Turning Lathe Tender's Cutoff: 300 ng/mL Tetrahydrocannabinol, U Unconfirmed Positive Negative 03/12 7:18 AM MKTO (A) PAN DUMPER Comment: ----ADDITIONAL INFORMATION---- Turning Lathe Tender's Cutoff: 50 ng/mL Tricyclic Antidepressants, U Negative Negative 03/12/2021 7:18 AM PAN DUMPER MKTO Comment: ----ADDITIONAL INFORMATION---- Turning Lathe Tender's Cutoff: 300 ng/mL THE ABOVE DRUG SCREEN PANEL IS FOR MED ICAL PURPOSES ONLY Specimen Anatomical Collection Method Collection Time Receive d Time (Source) Location / / Volume Laterality Urine (Urine, 03/12/2021 6:23 AM 03/12/20 6:47 Clean Catch) PAN DUMPER AM PAN DUMPER Nunu Sanches P.A.-C., M.S. LAB URINE ORDERABLES Performing Organization Address City/State/[facility] Code Phon e Number [facility]- [address] [place] [phone] [facility] [place] [address] System in [place] [address] [facility] HCV Ab w/Reflex to HCV PCR, Serum (03/12/2021 5:58 AM PAN DUMPER) athologist [facility] HCV Ab, S Negative Negative 03/13/2021 SDS 9:25 AM PAN DUMPER Comment: [id number] ratio is <1.00 . Specimen (Source) Anatomical Collection Method Collection Time Re ceived Time Location / / Volume Laterality Blood (Blood, 03/12/2021 5:58 03/13/2021 7:17 Peripheral Draw) AM PAN DUMPER AM PAN DUMPER Ivan Lazo D.O. LAB MICROBIOLOGY - BLOOD ORD ERABLES Performing Organization Address City/[facility]/ZIP Code Phon e Number [facility] [address] [place] [address] [facility] [place] [address] Laboratory Medicine and Pathology [facility] [place] [address] CHAPPELL Hepatitis A IgM Ab, Serum (03/12/2021 5:58 AM PAN DUMPER) athologist [facility] Hepatitis A Negative Negative 03/13/2021 [facility] IgM Ab, S 9:50 AM PAN DUMPER Comment: Result does not exclude the possibility of exposure to hepatitis A virus. ??Antibody level duri ng early infection stage may be below the limit of detectio n of the assay. Specimen (Source) Anatomical Collection Method Collection Time Re ceived Time Location / / Volume Laterality Blood (Blood, 03/12/2021 5:58 03/13/2021 7:18 Peripheral Draw) AM PAN DUMPER AM PAN DUMPER Ivan Lazo D.O. LAB MICROBIOLOGY - BLOOD ORD ERABLES Performing Organization Address City/State/ZIP Code Phon e Number [facility] [address] [place] [address] [facility] [place] [address] Laboratory Medicine and Pathology [address] CHAPPELL Hepatitis B Core IgM Ab (03/12/2021 5:58 AM PAN DUMPER) athologist [facility] HBc IgM Ab, S Negative Negative 03/13/2021 [facility] 9:12 AM PAN DUMPER Specimen (Source) Anatomical Collection Method Collection Time Re ceived Time Location / / Volume Laterality Blood (Blood, 03/12/2021 5:58 03/13/2021 7:17 Peripheral Draw) AM PAN DUMPER AM PAN DUMPER Ivan Lazo D.O. LAB MICROBIOLOGY - BLOOD ORD ERABLES Performing Organization Address City/State/ZIP Code Phon e Number [facility] [address] [place], [place] [address] [place], [place] [address]. [place] [address] Laboratory Medicine and Pathology [address] CHAPPELL Hepatitis B Surface Antigen (03/12/2021 5:58 AM PAN DUMPER) [facility] Method Time Signature HBs Antigen, Nonreactive Nonreactive 03/12/2021 MKTO S 7:43 AM PAN DUMPER Comment: Biotin has been identified by the chantelle lockett as a potential interfering substance. ??Higher concentr ations of biotin may be found in multivitamins, hair/nail supple ments, and workout supplements. ??If the result does not [facility] clinical observations, repeat testing after patient refrains fr om the use of supplements for at least 12 hours. Specimen (Source) Anatomical Collection Method Collection Time Re ceived Time Location / / Volume Laterality Blood (Blood, 03/12/2021 5:58 03/12/2021 6:10 Peripheral Draw) AM PAN DUMPER AM PAN DUMPER Ivan Lazo D.O. LAB MICROBIOLOGY - BLOOD ORD ERABLES Performing Organization Address City/State/ZIP Code Phon e Number [facility]- [address] [place] [phone] [place] [address] [place] [address] System [place] [address] (ABNORMAL) Ammonia (03/12/2021 5:58 AM PAN DUMPER) P athologist Signature Ammonia, P 127 (H) <=51 03/12/2021 MKTO mcmol/L 6:33 AM PAN DUMPER Specimen Anatomical Collection Method Collection Time Receive d Time (Source) Location / / Volume Laterality Blood (Blood, 03/12/2021 5:58 AM 03/12/20 6:09 Venous) PAN DUMPER AM PAN DUMPER Ivan Lazo D.O. LAB BLOOD NON ADD-ON Performing Organization Address City/State/ZIP Code Phon e Number [facility]- [address] [place] [phone] [place] [address] System in [address] (ABNORMAL) Calcium, Ionized (03/12/2021 5:57 AM PAN DUMPER) P athologist Signature Calcium, 3.74 (L) 4.65 - 03/12/2021 MKTO Ionized, B 5.30 mg/dL 6:21 AM PAN DUMPER Specimen Anatomical Collection Method Collection Time Receive d Time (Source) Location / / Volume Laterality Blood 03/12/2021 5:57 AM 6:10 PAN DUMPER AM PAN DUMPER Nunu Sanches P.A.-C., M.S. LAB BLOOD NON ADD-ON Performing Organization Address City/[facility] Phon e Number [address] [address] [place] [address] System [place] [address] (ABNORMAL) pH (03/12/2021 5:57 AM PAN DUMPER) P athologist Signature pH 7.63 (H) 7.35 - 7.45 03/12/2021 MKTO pH 6:21 AM PAN DUMPER Specimen Anatomical Collection Method Collection Time Receive d Time (Source) Location / / Volume Laterality Blood 03/12/2021 5:57 AM 1 6:10 PAN DUMPER AM PAN DUMPER Nunu Sanches P.A.-C., M.S. LAB HISTORICAL ORDERS Performing Organization Address City/[facility] Phon e Number [address] [address] [place] [address] [address] (ABNORMAL) Lactate, B (03/12/2021 5:57 AM PAN DUMPER) P athologist Signature Lactate, B 5.6 (H) 0.5 - 2.2 03/12/2021 MKTO mmol/L 6:21 AM PAN DUMPER Specimen Anatomical Collection Method Collection Time Receive d Time (Source) Location / / Volume Laterality Blood 03/12/2021 5:57 AM 6:10 PAN DUMPER AM PAN DUMPER Nunu Sanches P.A.-C., M.S. LAB BLOOD NON ADD-ON Performing Organization Address City/[facility]/ZIP Code Phon e Number [facility]- [address] [place] [phone] [place] [address] System [place] [address] S-TSH (Thyroid-Stimulating Hormone - Sensitive) (03/12/2021 5:57 AM PAN DUMPER) P athologist Signature TSH, Sensitive 1.1 0.3 - 4.2 03/12/2021 MKTO mIU/L 7:44 AM PAN DUMPER Specimen Anatomical Collection Method Collection Time Receive d Time (Source) Location / / Volume Laterality Blood (Blood, 03/12/2021 5:57 AM 03/12/20 6:10 Venous) PAN DUMPER AM PAN DUMPER Nunu Sanches P.A.-C., M.S. LAB BLOOD ADD-ON Performing Organization Address City/[facility] Code Phon e Number [facility]- [address] [place] [phone] [facility] [place] [address] System in [address] Salicylate Level (03/12/2021 5:57 AM PAN DUMPER) P athologist Signature Salicylate, P <0.3 <30.0 mg/dL 03/12/2021 MKTO 6:50 AM PAN DUMPER Specimen Anatomical Collection Method Collection Time Receive d Time (Source) Location / / Volume Laterality Blood (Blood, 03/12/2021 5:57 AM 03/12/20 6:10 Venous) PAN DUMPER AM PAN DUMPER Nunu Sanches P.A.-C., M.S. LAB BLOOD ADD-ON Performing Organization Address City/[facility]/ZIP Code Phon e Number [address] [phone] [facility] [place] [address] System in [address] Acetaminophen Level (03/12/2021 5:57 AM PAN DUMPER) Patholo gist Method Time Signature Acetaminophen, <7 Therapeutic 03/12/2021 MKTO P Range: 10-30 6:50 AM PAN DUMPER mcg/mL Specimen Anatomical Collection Method Collection Time Receive d Time (Source) Location / / Volume Laterality Blood (Blood, 03/12/2021 5:57 AM 03/12/20 6:10 Venous) PAN DUMPER AM PAN DUMPER Nunu Sanches P.A.-C., M.S. LAB BLOOD ADD-ON Performing Organization Address [facility] Phon e Number [facility]- [facility] [place] [address] [place] [address] System [place] [address] hCG (Human Chorionic Gonadotropin), Quantitative, (03/12/2021 5:57 AM PAN DUMPER) athologist Signature HCG, <0.5 <5 IU/L 03/12/2021 MKTO Quantitative, 6:55 AM PAN DUMPER , P Comment: Biotin has been identified by the chantelle lockett as a potential interfering substance. ??Higher concentr ations of biotin may be found in multivitamins, hair/nail supple ments, and workout supplements. ??If the result does not ma tch clinical observations, repeat testing after patient refrains fr om the use of supplements for at least 12 hours. Specimen Anatomical Collection Method Collection Time Receive d Time (Source) Location / / Volume Laterality Blood (Blood, 03/12/2021 5:57 AM 03/12/20 6:10 Venous) PAN DUMPER AM PAN DUMPER Nunu Sanches P.A.-C., M.S. LAB BLOOD ADD-ON Performing Organization Address City/[facility]/ZIP Code Phon e Number [facility]- [facility] [place] [address] [place] [address] System in [address] Ethanol Level, Serum (03/12/2021 5:57 AM PAN DUMPER) athologist Signature Ethanol, P <10 <10 mg/dL 03/12/2021 6:50 MKTO AM PAN DUMPER Specimen Anatomical Collection Method Collection Time Receive d Time (Source) Location / / Volume Laterality Blood (Blood, 03/12/2021 5:57 AM 03/12/20 21 6:10 Venous) PAN DUMPER AM PAN DUMPER uNnu Sanches P.A.-C., M.S. LAB BLOOD NON ADD-ON Performing Organization Address [facility] Phon e Number [facility]- [address] [place] [phone] [place] [address] System [place] [address] (ABNORMAL) NT-Pro B-Type Natriuretic Peptide (BNP) (03/12/2021 5:57 AM PAN DUMPER) athologist Signature NT-Pro BNP 1032 (H) <=140 pg/mL 03/12/2021 [facility] 7:44 AM PAN DUMPER Comment: NT-proBNP values less than 300 pg/mL [...] supplements. ??If the result does not ma tch clinical observations, repeat testing after patient refrains fr om the use of supplements for at least 12 hours. Specimen Anatomical Collection Method Collection Time Receive d Time (Source) Location / / Volume Laterality Blood (Blood, 03/12/2021 5:57 AM 03/12/20 21 6:10 Venous) PAN DUMPER AM PAN DUMPER Nunu Sanches P.A.-C., M.S. LAB BLOOD ADD-ON Performing Organization Address City/[facility]/ZIP Code Phon e Number [facility]- [address] [place] [phone] [place] [address] System in [address] Lipase (03/12/2021 5:57 AM PAN DUMPER) athologist Signature Lipase, P 18 13 - 60 U/L 03/12/2021 6:50 MKTO AM PAN DUMPER Specimen Anatomical Collection Method Collection Time Receive d Time (Source) Location / / Volume Laterality Blood (Blood, 03/12/2021 5:57 AM 03/12/20 6:10 Venous) PAN DUMPER AM PAN DUMPER Nunu Sanches P.A.-C., M.S. LAB BLOOD ADD-ON Performing Organization Address City/[facility] Phon e Number [address] [address] [place] [address] System in [address] (ABNORMAL) Prothrombin Time (PT) (03/12/2021 5:57 AM PAN DUMPER) [facility] gist Method Time Signature Prothrombin 25.3 (H) 9.4 - 12.5 03/12/2021 MKTO Time, P sec 6:26 AM PAN DUMPER INR 2.2 0.9 - 1.1 03/12/2021 MKTO 6:26 AM PAN DUMPER Comment: ----ADDITIONAL INFORMATION---- Standard intensity warfarin therapeutic range: 2.0 to 3.0 ?? High intensity warfarin therapeutic rang e: 2.5 to 3.5 Specimen Anatomical Collection Method Collection Time Receive d Time (Source) Location / / Volume Laterality Blood (Blood, 03/12/2021 5:57 AM 03/12/20 6:10 Venous) PAN DUMPER AM PAN DUMPER Nunu Sanches P.A.-C., M.S. LAB BLOOD ADD-ON Performing Organization Address City/[facility] Code Phon e Number [address] [address] [place] [address] [address] (ABNORMAL) Phosphorus Inorganic (03/12/2021 5:57 AM PAN DUMPER) athologist Signature Phosphorus 1.9 (L) 2.5 - 4.5 03/12/2021 MKTO (Inorganic), P mg/dL 6:58 AM PAN DUMPER Specimen Anatomical Collection Method Collection Time Receive d Time (Source) Location / / Volume Laterality Blood (Blood, 03/12/2021 5:57 AM 03/12/20 6:10 Venous) PAN DUMPER AM PAN DUMPER Nunu Sanches P.A.-C., M.S. LAB BLOOD ADD-ON Performing Organization Address City/[facility] Phon e Number [facility]- [address] [place] [phone] [place] [address] (ABNORMAL) Magnesium (03/12/2021 5:57 AM PAN DUMPER) athologist Signature Magnesium, P 1.1 (L) 1.7 - 2.3 03/12/2021 MKTO mg/dL 6:58 AM PAN DUMPER Specimen Anatomical Collection Method Collection Time Receive d Time (Source) Location / / Volume Laterality Blood (Blood, 03/12/2021 5:57 AM 03/12/20 6:10 Venous) PAN DUMPER AM PAN DUMPER Nunu Sanches P.A.-C., M.S. LAB BLOOD ADD-ON Performing Organization Address [facility] Phon e Number [facility]- [address] [place] [phone] [facility] [place] [address] (ABNORMAL) Comprehensive Metabolic Panel (03/12/2021 5:57 AM PAN DUMPER) P athologist Signature Potassium, P 3.0 (L) 3.6 - 5.2 03/12/2021 MKTO mmol/L 6:50 AM PAN DUMPER Sodium, P 132 (L) 135 - 145 03/12/2021 MKTO mmol/L 6:50 AM PAN DUMPER Chloride, P 94 (L) 98 - 107 03/12/2021 MKTO mmol/L 6:50 AM PAN DUMPER Bicarbonate, P 17 (L) 22 - 29 03/12/2021 MKTO mmol/L 6:50 AM PAN DUMPER Anion Gap, P 21 (H) 7 - 15 03/12/2021 MKTO 6:50 AM PAN DUMPER BUN (Blood Urea 8 6 - 21 03/12/2021 MKTO Nitrogen), P mg/dL 6:50 AM PAN DUMPER Creatinine 0.64 0.59 - 03/12/2021 MKTO 1.04 mg/dL 6:50 AM PAN DUMPER eGFR-Black/Afri >90 >=60 03/12/2021 MKTO can Bahamian mL/min/BSA 6:50 AM PAN DUMPER Comment: ----ADDITIONAL INFORMATION---- Estimated GFR calculated using the 2009 CKD_EPI creatinine equation. eGFR Non-Black/ >90 >=60 mL/min/BSA 03/12/2021 6:50 AM PAN DUMPER MKTO Comment: ----ADDITIONAL INFORMATION---- Estimated GFR calculated using the 2009 CKD_EPI creatinine equation. Calcium, Total, P 8.0 (L) 8.6 - 10.0 mg/dL 03/12/2021 6:50 AM PAN DUMPER MKTO Glucose, P 118 70 - 140 mg/dL 03/12/2021 6:50 AM PAN DUMPER M KTO Protein, Total, P 5.6 (L) 6.3 - 7.9 g/dL 03/12/2021 6:50 A M PAN DUMPER MKTO Albumin, P 2.9 (L) 3.5 - 5.0 g/dL 03/12/2021 6:50 AM PAN DUMPER M KTO Aspartate Aminotransferase 45 (H) 8 - 43 U/L 03/12/2021 6 :50 AM PAN DUMPER MKTO (AST), P Alkaline Phosphatase, P 126 (H) 35 - 104 U/L 03/12/2021 6: 50 AM PAN DUMPER MKTO Alanine Aminotransferase 13 7 - 45 U/L 03/12/2021 6:5 0 AM PAN DUMPER MKTO (ALT), P Bilirubin, Total, P 6.6 (H) <=1.2 mg/dL 03/12/2021 6:50 AM PAN DUMPER MKTO Specimen Anatomical Collection Method Collection Time Receive d Time (Source) Location / / Volume Laterality Blood (Blood, 03/12/2021 5:57 AM 03/12/20 6:10 Venous) PAN DUMPER AM PAN DUMPER Nunu Sanches P.A.-C., M.S. LAB BLOOD ADD-ON Performing Organization Address City/State/ZIP Code Phon e Number [facility]- [address] [place] [phone] [facility] [place] [address] System [address] (ABNORMAL) CBC without Differential (03/12/2021 5:57 AM PAN DUMPER) [facility] Method Time Signature Hemoglobin 7.7 (L) 11.6 - 03/12/2021 MKTO 15.0 g/dL 6:26 AM PAN DUMPER Hematocrit 22.6 (L) 35.5 - 03/12/2021 MKTO 44.9 % 6:26 AM PAN DUMPER Erythrocytes 2.12 (L) 3.92 - 03/12/2021 MKTO 5.13 6:26 AM PAN DUMPER x10(12)/L MCV 106.6 (H) 78.2 - 03/12/2021 MKTO 97.9 fL 6:26 AM PAN DUMPER RBC Distrib Width 15.7 12.2 - 03/12/2021 MKTO 16.1 % 6:26 AM PAN DUMPER Platelet Count 144 (L) 157 - 371 03/12/2021 MKTO x10(9)/L 6:26 AM PAN DUMPER Leukocytes 12.7 (H) 3.4 - 9.6 03/12/2021 MKTO x10(9)/L 6:26 AM PAN DUMPER Specimen Anatomical Collection Method Collection Time Receive d Time (Source) Location / / Volume Laterality Blood (Blood, 03/12/2021 5:57 AM 03/12/20 21 6:10 Venous) PAN DUMPER AM PAN DUMPER Nunu Sanches P.A.-C., M.S. LAB BLOOD ADD-ON Performing Organization Address City/State/ZIP Code Phon e Number [facility]- [address] [place] [address] [place] [address] System in [place] [address] [place] [address] Bacteria / Raudel Culture, Blood #1 (03/12/2021 5:57 AM PAN DUMPER) [facility] Method Time Signature Bacteria/Adriana No growth 03/17/2021 MKTO da Culture, after 5 7:05 AM PAN DUMPER Blood day/s of incubation. Specimen (Source) Anatomical Collection Method Collection Time Re ceived Time Location / / Volume Laterality Blood (Blood, 03/12/2021 5:57 03/12/2021 6:10 Peripheral Draw) AM PAN DUMPER AM PAN DUMPER Comment: Specimen Source Site: Blood Nunu Sanches P.A.-C., MSumaS. LAB MICROBIOLOGY - GENE RAL ORDERABLES Performing Organization Address City/[facility] Phon e Number [facility]- [address] [place] [phone] [place] [address] Glucose, POCT (03/12/2021 5:48 AM PAN DUMPER) athologist Signature Glucose, POCT, 120 70 - 140 03/12/2021 [facility] B mg/dL 5:48 AM PAN DUMPER Specimen Anatomical Collection Method Collection Time Receive d Time (Source) Location / / Volume Laterality Blood 03/12/2021 5:48 AM 7:25 PAN DUMPER AM PAN DUMPER Generic Rals LAB POCT ORDERABLES-MANUAL Performing Organization Address [facility] Phon e Number [facility]- [address] [place] [phone] [place] [address] System in [address] documented in this encounter Visit Diagnoses Diagnosis Change Mental Status - Primary Cirrhosis Alcoholic (HCC) Acute Respiratory Failure (HCC) Anemia Macrocytic Patent Foramen Ovale (HCC) Alcohol Use Unspecified With Unspecified Alcohol Induced Disorder (HCC) documented in this encounter Admitting Diagnoses Diagnosis Change Mental Status documented in this encounter Administered Medications Inactive Administered Medications - up to 3 most recent administrations Medication Order MAR Action Action Date Dose Rate Site acetaminophen tablet 650 mg Given 03/19/2021 5:57 PM PAN DUMPER 650 mg (TYLENOL) 650 mg, oral, Once, On Wed03/19/21 at 1800, For 1 dose albumin human 25 % injection 25 g New Bag 03/19/2021 6:39 AM PAN DUMPER 25 g 25 g, intravenous, Every 6 hours scheduled, First dose on Wed03/12/21 at 1400, If no infusion rate specified: Administer the 25% solution at 100 mL/hr New Bag 03/19/2021 12:15 AM PAN DUMPER 25 g New Bag 03/18/2021 6:32 PM PAN DUMPER 25 g albumin human 5 % injection 12.5 g New Bag 03/12/2021 8:49 AM PAN DUMPER 12.5 g 12.5 g, intravenous, Every 1 hour, First dose on Wed03/12/21 at 0815, For 2 doses, If no infusion rate specified: Administer the 5% solution at 999 mL/hr or less if ICU/shock, otherwise infuse at 250 mL/hr. New Bag 03/12/2021 8:48 AM PAN DUMPER 12.5 g albumin human 5 % injection 25 g New Bag 03/13/2021 7:30 PM PAN DUMPER 25 g 250 mL/hr 25 g, intravenous, Once, On [place] 03/13/21 at 1900, For 1 dose, If no infusion rate specified: Administer the 5% solution at 999 mL/hr or less if ICU/shock, otherwise infuse at 250 mL/hr. calcium chloride in NaCl 0.9% IVPB 1 g New Bag 03/12/2021 2:06 PM PAN DUMPER 1 g 240 mL/hr 1 g, intravenous, at 240 mL/hr, Administer over 15 Minutes, Once, On Wed03/12/21 at 1245, For 1 dose, Infuse each gram over at least 15 minutes. calcium gluc in NaCl, iso-osm IVPB 2 g New Bag 03/16/2021 5:53 AM PAN DUMPER 2 g 400 mL/hr 2 g, intravenous, at 400 mL/hr, Administer over 15 Minutes, Once, On Wed03/16/21 at 0530, For 1 dose calcium gluconate in NaCl (iso-osm) New Bag 03/12/2021 8:03 AM PAN DUMPER 1 g 200 mL/hr IVPB 1 g 1 g, intravenous, at 200 mL/hr, Administer over 15 Minutes, Once, On Wed03/12/21 at 0730, For 1 dose cefTRIAXone injection 1 g (ROCEPHIN) Given 03/19/2021 9:08 AM PAN DUMPER 1 g 1 g, intravenous, Daily, First dose (after last modification) on Wed03/19/21 at 0900, If needed, reconstitute vial per package insert instructions. See IVAG for administration guidelines. , Drug Monitoring Program: Pharmacist to adjust medication dosing based on indication and drug clearance factors., Indications: sbp prophylaxis cefTRIAXone injection 2 g (ROCEPHIN) Given 03/18/2021 8:48 AM PAN DUMPER 2 g 2 g, intravenous, Daily, First dose (after last modification) on Wed03/18/21 at 0900, If needed, reconstitute vial per package insert instructions. See IVAG for administration guidelines. , Drug Monitoring Program: Pharmacist to adjust medication dosing based on indication and drug clearance factors., Indications: sbp prophylaxis ciprofloxacin tablet 500 mg (CIPRO) Given 03/24/2021 6:18 AM PAN DUMPER 500 mg 500 mg, oral, Daily before breakfast, First dose on [place] 03/20/21 at 0700, Take 2 hours before or 6 hours after antacids containing magnesium or aluminum, sucralfate, didanosine, polymeric phosphate binders, or products containing calcium, iron, or zinc., Drug Monitoring Program: Pharmacist to adjust medication dosing based on indication and drug clearance factors., Indications: Prophylaxis, medical Given 03/23/2021 6:34 AM PAN DUMPER 500 mg Given 03/22/2021 7:02 AM PAN DUMPER 500 mg dexmedeTOMIDine 4 mcg/mL Rate/Dose Change 03/14/2021 9:18 0.2 mcg/k g/hr 2.71 mL/hr in NaCl 0.9% 100 mL AM PAN DUMPER infusion (PRECEDEX) 0.2-1.5 mcg/kg/hr ? 54.2 kg Dosing weight (2.71-20.325 mL/hr, rounded to 2.71-20.32 mL/hr), intravenous, Continuous, Starting on Wed03/12/21 at 0630, 400 mcg in 100 mL, Initiate at: 0.2 mcg/kg/hr., Titrate at: 0.1 mcg/kg/hr every 10 min., Goal: Other, Goal: 0, Restriction Criteria (Pharmacy will review and approve if criteria met): INITIATED and MAINTAINED only in patients in the operating rooms or in the intensive care unit Rate/Dose Verify 03/14/2021 9:00 AM PAN DUMPER 0.4 mcg/kg/hr 5.42 mL/hr Rate/Dose Change 03/14/2021 8:53 AM PAN DUMPER 0.4 mcg/kg/hr 5.42 mL/hr doxycycline 100 mg in NaCl 0.9% New Bag 03/12/2021 9:13 PM PAN DUMPER 100 mg 100 mL/hr IVPB (VIBRAMYCIN) 100 mg, intravenous, at 100 mL/hr, Administer over 60 Minutes, Every 12 hours scheduled, First dose on Wed03/12/21 at 0900, Mini-Bag Plus bag, Indications: Intra-abdominal infection, community acquired, Respiratory tract infection, healthcare associated New Bag 03/12/2021 8:59 AM PAN DUMPER 100 mg 100 mL/hr doxycycline 100 mg in NaCl 0.9% New Bag 03/17/2021 8:44 PM PAN DUMPER 100 mg 100 mL/hr IVPB (VIBRAMYCIN) 100 mg, intravenous, at 100 mL/hr, Administer over 60 Minutes, Every 12 hours scheduled, First dose (after last modification) on [place] 03/13/21 at 0900, For 5 days, Mini-Bag Plus bag, Indications: Intra-abdominal infection, community acquired, Respiratory tract infection, healthcare associated New Bag 03/17/2021 11:08 AM PAN DUMPER 100 mg 100 mL/hr New Bag 03/16/2021 8:38 PM PAN DUMPER 100 mg 100 mL/hr folic acid tablet 1 mg Given 03/24/2021 8:52 AM PAN DUMPER 1 mg 1 mg, oral, Daily, First dose on [place] 03/13/21 at 1230 Given 03/23/2021 8:10 AM PAN DUMPER 1 mg Given 03/22/2021 10:22 AM PAN DUMPER 1 mg furosemide injection 20 mg (LASIX) Given 03/19/2021 9:08 AM PAN DUMPER 20 mg 20 mg, intravenous, Every 24 hours scheduled, First dose on Wed03/14/21 at 1230, Adults: Doses less than 120 mg: IV push over 20 mg/minute. Doses 120 mg or greater: IVPB at 4 mg/minute. Peds/Neonates: Doses less than 120 mg over 0.5 mg/kg/minute. Doses 120 mg or greater: IVPB at 4 mg/minute. Given 03/18/2021 8:49 AM PAN DUMPER 20 mg Given 03/17/2021 10:48 AM PAN DUMPER 20 mg furosemide tablet 20 mg (LASIX) Given 03/24/2021 8:52 AM PAN DUMPER 20 mg 20 mg, oral, Daily, First dose on [place] 03/20/21 at 0900 Given 03/23/2021 8:10 AM PAN DUMPER 20 mg Given 03/22/2021 10:22 AM PAN DUMPER 20 mg heparin (porcine) Given 03/15/2021 5:35 AM PAN DUMPER 5,000 Units Left Upper Arm injection 5,000 Units (Back) 5,000 Units, subcutaneous, Every 8 hours scheduled, First dose on Wed03/12/21 at 0645 Given 03/14/2021 8:40 PM PAN DUMPER 5,000 Units Left Upper Arm (Back) Given 03/14/2021 2:51 PM PAN DUMPER 5,000 Units Right Lower Abdomen iohexoL 300 mg iodine/mL solution 1-200 mL Given 03/12/2021 1:50 PM PAN DUMPER 100 mL (OMNIPAQUE) 1-200 mL, intravenous, Once in imaging, contrast, Starting on Wed03/12/21 at 1346, For 1 dose, Dose per Radiant Medication Guidelines iohexoL 300 mg iodine/mL solution 1-200 mL Given 03/16/2021 2:37 AM PAN DUMPER 100 mL (OMNIPAQUE) 1-200 mL, intravenous, Once in imaging, contrast, for Ct exam, Starting on Wed03/16/21 at 0230, For 1 dose, Dose per Radiant Medication Guidelines ketamine injection (KETALAR) Given 03/12/2021 9:42 AM PAN DUMPER 30 mg Code/trauma/sedation medication, Starting on Wed03/12/21 at 0942 ketamine injection 60 mg (KETALAR) Given 03/12/2021 9:12 AM PAN DUMPER 20 mg 60 mg, intravenous, Once, On Wed03/12/21 at 0845, For 1 dose Given 03/12/2021 8:50 AM PAN DUMPER 20 mg lactulose (CHRONULAC) 200 g in sterile Given 03/12/2021 8:18 AM PAN DUMPER 1,000 mL water 1,000 mL enema 1,000 mL, rectal, Once, On Wed03/12/21 at 0615, For 1 dose, Total dose= 1000 mL; Instill ~ 300 mL at a time, and retain for 15-20 minutes each Rectal Use Only. Refrigerate. PROTECT FROM LIGHT. lactulose solution 30 g (CHRONULAC) Given 03/24/2021 8:52 AM PAN DUMPER 30 g 30 g, gastric tube, 3 times daily, First dose on Wed03/12/21 at 1400, Aim for 500 cc stool in 24 hours or 3-4 loose bowel movements per day Given 03/23/2021 9:49 PM PAN DUMPER 30 g Given 03/23/2021 2:04 PM PAN DUMPER 30 g LORazepam injection 1 mg (ATIVAN) 1 mg, intravenous, Every 4 hours PRN, se izures, Starting on [place] 03/20/21 at 2120, For intravenous use, dilute with equal volume of 0.9% NS magnesium oxide tablet 400 mg (MAG-OX) Given 03/24/2021 6:18 AM PAN DUMPER 400 mg 400 mg, oral, 2 times daily before breakfast and dinner, First dose on Wed03/23/21 at 0700 Given 03/23/2021 3:41 PM PAN DUMPER 400 mg Given 03/23/2021 6:34 AM PAN DUMPER 400 mg magnesium sulfate in D5W IVPB 1 g New Bag 03/15/2021 6:10 PM PAN DUMPER 1 g 100 mL/hr 1 g, intravenous, at 100 mL/hr, Administer over 60 Minutes, Once, On Wed03/15/21 at 1800, For 1 dose, Over 1 hours. , Monitor the following for replacement: Magnesium magnesium sulfate in water IVPB 2 g New Bag 03/12/2021 8:03 AM PAN DUMPER 2 g 25 mL/hr 2 g, intravenous, at 25 mL/hr, Administer over 120 Minutes, Once, On Wed03/12/21 at 0715, For 1 dose magnesium sulfate in water IVPB 2 g New Bag 03/15/2021 5:26 AM PAN DUMPER 2 g 25 mL/hr 2 g, intravenous, at 25 mL/hr, Administer over 120 Minutes, Once, On Wed03/15/21 at 0600, For 1 dose magnesium sulfate in water IVPB 2 g Bag 03/16/2021 5:08 AM PAN DUMPER 2 g 25 mL/hr 2 g, intravenous, at 25 mL/hr, Administer over 120 Minutes, Once, On Wed03/16/21 at 0500, For 1 dose magnesium sulfate in New Bag 03/22/2021 4:18 PM PAN DUMPER 2 g 25 mL/hr Right Antecubital water IVPB 2 g 2 g, intravenous, at 25 mL/hr, Administer over 120 Minutes, Once, On Wed03/22/21 at 1530, For 1 dose magnesium sulfate in water IVPB Rate/Dose Change 03/12/2021 4:02 PM PAN DUMPER 50 mL/hr 4 g 4 g, intravenous, at 25 mL/hr, Administer over 240 Minutes, Once, On Wed03/12/21 at 1345, For 1 dose 03/12/2021 2:27 PM PAN DUMPER 4 g 25 mL/hr magnesium sulfate in water IVPB 4 g New Bag 03/19/2021 3:40 PM PAN DUMPER 4 g 25 mL/hr 4 g, intravenous, at 25 mL/hr, Administer over 240 Minutes, Once, On Wed03/19/21 at 1000, For 1 dose, Over 4 hours. melatonin tablet 3 mg Given 03/17/2021 2:30 AM PAN DUMPER 3 mg 3 mg, oral, Once, On 03/17/21 at 0230, For 1 dose melatonin tablet 6 mg Given 03/23/2021 9:49 PM PAN DUMPER 6 mg 6 mg, oral, Daily at bedtime, First dose (after last modification) on 03/17/21 at 2100 Given 03/23/2021 12:19 AM PAN DUMPER 6 mg Given 03/22/2021 12:48 AM PAN DUMPER 6 mg multivitamin (Adult MVI) 10 mL in NaCl New Bag 03/15/2021 8:06 AM PAN DUMPER 255 mL/hr 0.9% 500 mL IVPB intravenous, at 255 mL/hr, Administer over 2 Hours, Daily, First dose on [place] 03/13/21 at 0900, For 3 days, Protect from light. New Bag 03/14/2021 8:15 AM PAN DUMPER 255 mL/hr New Bag 03/13/2021 9:40 AM PAN DUMPER 255 mL/hr NaCl 0.9% infusion Rate/Dose Verify 03/16/2021 12:00 AM 20 mL/hr 20 mL/hr 20-500 mL/hr, intravenous, PAN DUMPER Once as needed, Between Units of Blood Products, Starting on 03/15/21 at 1218, For 1 dose, Infuse at the same rate as the blood infusion until tubing cleared. Nurse may reduce rate to 20 mL/hour or as otherwise directed until next blood infusion arrives then discontinue when infusion complete. Rate/Dose Verify 03/15/2021 9:00 PM PAN DUMPER 20 mL/hr 20 mL/hr Rate/Dose Verify 03/15/2021 8:00 PM PAN DUMPER 20 mL/hr 20 mL/hr naloxone injection 0.2 mg 0.2 mg, intravenous, As needed, respirat ory depression, Starting on Wed03/14/21 at 1958, For RASS Score -4 or less, respiratory rate of l ess than 8 breaths/min. Notify provider/service and rapid response team (if av ailable at institution). norepinephrine 16 mcg/mL in D5W 250 mL i nfusion - ADS Override Pull Starting on Wed03/12/21 at 0923, For 1 dose, Created by cabinet override Protect from light and avoid extravasation norepinephrine 16 Rate/Dose Verify 03/15/2021 12:00 0.01 mcg/kg/min 2 .03 mL/hr mcg/mL in D5W 250 mL AM PAN DUMPER infusion 0-0.3 mcg/kg/min ? 54.2 kg Dosing weight (0-60.975 mL/hr, rounded to 0-60.98 mL/hr), intravenous, Continuous, Starting on Wed03/12/21 at 1100, Protect from light and avoid extravasation, Patient Type: Sepsis, Initiate at: 0.05 mcg/kg/min, Titrate at: 0.05 mcg/kg/min. every 5 min., Wean at: 0.01 mcg/kg/min. every 5 min., Goal: Other, Goal: MAP 60-65 New Bag 03/14/2021 10:03 PM PAN DUMPER 0.01 mcg/kg/min 2.03 mL/hr Rate/Dose Change 03/13/2021 12:23 PM PAN DUMPER 0.02 mcg/kg/min 4.07 mL/hr norepinephrine 16 mcg/mL in NaCl Rate/Dose 03/12/2021 0.07 14. 2 0.9% 250 mL infusion Change 10:01 AM PAN DUMPER mcg/kg/min mL/hr Code/trauma/sedation continuous med, Starting on Wed03/12/21 at 0942 Rate/Dose Change 03/12/2021 9:53 AM PAN DUMPER 0.08 mcg/kg/min 16.3 mL/hr Rate/Dose Change 03/12/2021 9:45 AM PAN DUMPER 0.1 mcg/kg/min 20.3 mL/hr octreotide 2 mcg/mL in Rate/Dose Verify 03/13/2021 8:00 AM 25 mcg/hr 12.5 mL/hr NaCl 0.9% 250 mL infusion PAN DUMPER (SandoSTATIN) 25 mcg/hr (12.5 mL/hr), intravenous, Continuous, Starting on Wed03/12/21 at 1000, Protect from light. Rate/Dose Verify 03/13/2021 7:00 AM PAN DUMPER 25 mcg/hr 12.5 mL/hr Rate/Dose Verify 03/13/2021 6:00 AM PAN DUMPER 25 mcg/hr 12.5 mL/hr octreotide 2 mcg/mL in Rate/Dose Verify 03/16/2021 9:00 AM 25 mcg/hr 12.5 mL/hr NaCl 0.9% 250 mL infusion PAN DUMPER (SandoSTATIN) 25 mcg/hr (12.5 mL/hr), intravenous, Continuous, Starting on [place] 03/13/21 at 0845, For 72 hours, Protect from light. Rate/Dose Verify 03/16/2021 8:00 AM PAN DUMPER 25 mcg/hr 12.5 mL/hr Rate/Dose Verify 03/16/2021 7:00 AM PAN DUMPER 25 mcg/hr 12.5 mL/hr OLANZapine tablet 5 mg (ZyPREXA) Given 03/18/2021 9:29 PM PAN DUMPER 5 mg 5 mg, oral, Daily at bedtime, First dose on Wed03/18/21 at 1730 OLANZapine tablet 5 mg (ZyPREXA) Given 03/22/2021 12:48 AM PAN DUMPER 5 mg 5 mg, oral, Bedtime PRN, sleep, anxiety, Starting on Wed03/19/21 at 1830 Given 03/21/2021 1:11 AM PAN DUMPER 5 mg oxyCODONE IR tablet 5 mg (ROXICODONE) Given 03/21/2021 3:28 AM PAN DUMPER 5 mg 5 mg, oral, Every 4 hours PRN, moderate pain or score 4-6 of 10, severe pain or score 7-10 of 10, Starting on Wed03/14/21 at 1957 Given 03/20/2021 1:56 AM PAN DUMPER 5 mg Given 03/16/2021 4:23 AM PAN DUMPER 5 mg oxyCODONE IR tablet 5 mg (ROXICODONE) Given 03/22/2021 7:02 AM PAN DUMPER 5 mg 5 mg, oral, Once as needed, moderate pain or score 4-6 of 10, severe pain or score 7-10 of 10, Starting on Wed03/22/21 at 0354, For [address] tablet 40 mg (PROTONIX) Given 03/24/2021 8:52 AM PAN DUMPER 40 mg 40 mg, oral, 2 times daily, First dose on Wed03/19/21 at 2100, Swallow whole. Do NOT crush, chew, or split tablet. Given 03/23/2021 9:49 PM PAN DUMPER 40 mg Given 03/23/2021 8:09 AM PAN DUMPER 40 mg pantoprazole injection 40 mg (PROTONIX) Given 03/12/2021 8:49 AM PAN DUMPER 40 mg 40 mg, intravenous, Every 24 hours scheduled, First dose on Wed03/12/21 at 0900, Administer IV push over 2 minutes. Add 10 mL NS to 40 mg vial for a final concentration of 4 mg/mL. pantoprazole injection 40 mg (PROTONIX) Given 03/19/2021 9:08 AM PAN DUMPER 40 mg 40 mg, intravenous, Every 12 hours scheduled, First dose (after last modification) on Wed03/12/21 at 2100, Administer IV push over 2 minutes. Add 10 mL NS to 40 mg vial for a final concentration of 4 mg/mL. Given 03/18/2021 8:49 AM PAN DUMPER 40 mg Given 03/17/2021 8:34 PM PAN DUMPER 40 mg phenylephrine injection Given 03/12/2021 9:46 AM PAN DUMPER 100 mcg Code/trauma/sedation medication, Starting on Wed03/12/21 at 0946 phytonadione (vitamin K1) 10 mg in New Bag 03/16/2021 8:30 AM PAN DUMPER 10 mg 51 mL/hr NaCl 0.9% IVPB (AQUA-MEPHYTON) 10 mg, intravenous, at 51 mL/hr, Administer over 60 Minutes, Daily, First dose on Wed03/14/21 at 1045, For 3 doses, Protect from light. New Bag 03/15/2021 9:18 AM PAN DUMPER 10 mg 51 mL/hr New Bag 03/14/2021 11:34 AM PAN DUMPER 10 mg 51 mL/hr phytonadione (vitamin K1) 10 mg in New Bag 03/16/2021 8:15 AM PAN DUMPER 10 mg 51 mL/hr NaCl 0.9% IVPB (AQUA-MEPHYTON) 10 mg, intravenous, at 51 mL/hr, Administer over 60 Minutes, Once, On 03/16/21 at 0800, For 1 dose, Protect from light. phytonadione (vitamin K1) tablet 10 mg Given 03/23/2021 11:11 AM PAN DUMPER 10 mg (MEPHYTON) 10 mg, oral, Once, On 03/23/21 at 1045, For 1 dose phytonadione (vitamin K1) tablet 5 mg Given 03/21/2021 8:[address] 5 mg (MEPHYTON) 5 mg, oral, Daily, First dose on Wed03/19/21 at 1300, For 3 doses Given 03/20/2021 10:15 AM PAN DUMPER 5 mg Given 03/19/2021 1:56 PM PAN DUMPER 5 mg phytonadione (vitamin K1) tablet 5 mg Given 03/22/2021 10:22 AM PAN DUMPER 5 mg (MEPHYTON) 5 mg, oral, Daily, First dose (after last reorder) on Wed03/22/21 at 0900, For 3 doses piperacillin-tazobactam in dextrose New Bag 03/13/2021 5:34 AM PAN DUMPER 3.375 g 100 mL/hr (iso-osm) IVPB 3.375 g (ZOSYN) 3.375 g, intravenous, at 100 mL/hr, Administer over 0.5 Hours, Every 6 hours scheduled, First dose on Wed03/12/21 at 0815, Drug Monitoring Program: Pharmacist to adjust medication dosing based on indication and drug clearance factors., Indications: Intra-abdominal infection, community acquired New Bag 03/12/2021 11:36 PM PAN DUMPER 3.375 g 100 mL/hr New Bag 03/12/2021 6:14 PM PAN DUMPER 3.375 g 100 mL/hr piperacillin-tazobactam in dextrose New Bag 03/17/2021 11:49 P M 3.375 g 100 mL/hr (iso-osm) IVPB 3.375 g (ZOSYN) PAN DUMPER 3.375 g, intravenous, at 100 mL/hr, Administer over 0.5 Hours, Every 6 hours scheduled, First dose (after last modification) on [place] 03/13/21 at 1200, For 19 doses, Drug Monitoring Program: Pharmacist to adjust medication dosing based on indication and drug clearance factors., Indications: Intra-abdominal infection, community acquired New Bag 03/17/2021 6:25 PM PAN DUMPER 3.375 g 100 mL/hr New Bag 03/17/2021 1:09 PM PAN DUMPER 3.375 g 100 mL/hr potassium chloride ER tablet 40 mEq Given 03/20/2021 12:43 PM CS T 40 mEq (KLORCON/K-TAB) 40 mEq, oral, Once, On [place] 03/20/21 at 1030, For 1 dose, For K 3-3.4 mEq/L - give total of 40 mEq Swallow whole. Do NOT crush, chew, or split tablet., Monitor the following for replacement: Potassium, Replace Potassium per: Standard Schedule potassium chloride ER tablet 40 mEq Given 03/22/2021 4:19 PM PAN DUMPER 40 mEq (KLORCON/K-TAB) 40 mEq, oral, Once, On 03/22/21 at 1415, For 1 dose, Swallow whole. Do NOT crush, chew, or split tablet. potassium chloride ER tablet 40 mEq Given 03/23/2021 8:09 AM PAN DUMPER 40 mEq (KLORCON/K-TAB) 40 mEq, oral, Once, On Wed03/23/21 at 0800, For 1 dose, For K 3-3.4 mEq/L - give total of 40 mEq Swallow whole. Do NOT crush, chew, or split tablet., Monitor the following for replacement: Potassium, Replace Potassium per: Standard Schedule potassium chloride ER tablet 60 mEq Given 03/19/2021 10:48 AM CS T 60 mEq (KLORCON/K-TAB) 60 mEq, oral, Once, On Wed03/19/21 at 1000, For 1 dose, For K<3.0-3.2 mEq/L - give total of 60 mEq Swallow whole. Do NOT crush, chew, or split tablet., Monitor the following for replacement: Potassium, Replace Potassium per: Standard Schedule potassium chloride IVPB 10 mEq New Bag 03/12/2021 9:15 AM PAN DUMPER 10 mEq 100 mL/hr 10 mEq, intravenous, at 100 mL/hr, Administer over 60 Minutes, Every 1 hour, First dose on Wed03/12/21 at 0715, For 2 doses, Peripheral Line: 10 mEq per bag over 1 hour each. New Bag 03/12/2021 8:03 AM PAN DUMPER 10 mEq 100 mL/hr potassium chloride IVPB 10 mEq New Bag 03/14/2021 9:16 AM PAN DUMPER 10 mEq 100 mL/hr 10 mEq, intravenous, at 100 mL/hr, Administer over 60 Minutes, Every 1 hour, First dose on Wed03/14/21 at 0730, For 3 doses, Peripheral Line: 10 mEq per bag over 1 hour each. New Bag 03/14/2021 9:13 AM PAN DUMPER 10 mEq 100 mL/hr New Bag 03/14/2021 8:10 AM PAN DUMPER 10 mEq 100 mL/hr potassium chloride IVPB 10 mEq New Bag 03/18/2021 4:59 PM PAN DUMPER 10 mEq 100 mL/hr 10 mEq, intravenous, at 100 mL/hr, Administer over 60 Minutes, Every 1 hour, First dose on Wed03/18/21 at 1200, For 4 doses, Peripheral Line: 10 mEq per bag over 1 hour each. New Bag 03/18/2021 3:41 PM PAN DUMPER 10 mEq 100 mL/hr New Bag 03/18/2021 2:28 PM PAN DUMPER 10 mEq 100 mL/hr potassium chloride IVPB 20 mEq in New Bag 03/12/2021 9:[address] 20 mEq 100 mL/hr 100 mL (premix) 20 mEq, intravenous, at 100 mL/hr, Administer over 60 Minutes, Every 1 hour, First dose on [facility] 03/12/21 at 1900, For 3 doses, Central Line with Telemetry: 20 mEq per bag over 1 hour each. New Bag 03/12/2021 8:08 PM PAN DUMPER 20 mEq 100 mL/hr Bag 03/12/2021 6:57 PM PAN DUMPER 20 mEq 100 mL/hr potassium chloride IVPB 20 mEq in New Bag 03/13/2021 3:[address] 20 mEq 100 mL/hr 100 mL (premix) 20 mEq, intravenous, at 100 mL/hr, Administer over 60 Minutes, Every 1 hour, First dose on [facility] 03/13/21 at 0300, For 2 doses, Central Line with Telemetry: 20 mEq per bag over 1 hour each. New Bag 03/13/2021 2:13 AM PAN DUMPER 20 mEq 100 mL/hr potassium chloride IVPB 20 mEq in New Bag 03/15/2021 8:[address] 20 mEq 100 mL/hr 100 mL (premix) 20 mEq, intravenous, at 100 mL/hr, Administer over 60 Minutes, Every 1 hour, First dose on [facility] [email or web address] 03/15/21 at 0600, For 4 doses, Central Line with Telemetry: 20 mEq per bag over 1 hour each. New Bag 03/15/2021 7:26 AM PAN DUMPER 20 mEq 100 mL/hr New Bag 03/15/2021 6:28 AM PAN DUMPER 20 mEq 100 mL/hr potassium chloride IVPB 20 mEq in New Bag 03/15/2021 7:[address] 20 mEq 100 mL/hr 100 mL (premix) 20 mEq, intravenous, at 100 mL/hr, Administer over 60 Minutes, Every 1 hour, First dose on [facility] [email or web address]] 03/15/21 at 1700, For 3 doses, For K 3.0-3.2 mEq/L - give total of 60 mEq, Monitor the following for replacement: Potassium, Replace Potassium per: Standard Schedule New Bag 03/15/2021 6:08 PM PAN DUMPER 20 mEq 100 mL/hr New Bag 03/15/2021 5:03 PM PAN DUMPER 20 mEq 100 mL/hr potassium chloride IVPB 20 mEq in New Bag 03/16/2021 5:[address] 20 mEq 100 mL/hr 100 mL (premix) 20 mEq, intravenous, at 100 mL/hr, Administer over 60 Minutes, Every 1 hour, First dose on [place] 03/16/21 at 0500, For 1 dose, Central Line with Telemetry: 20 mEq per bag over 1 hour each. potassium chloride packet 40 mEq (KLOR-C ON) Given 03/13/2021 2:13 AM PAN DUMPER 40 mEq 40 mEq, oral, Once, On [place] 03/13/21 at 0215, For 1 dose, Dissolve one packet in 4-5 ounces of water or other beverage prior to administration. potassium phosphate in NaCl Rate/Dose Verify 03/15/2021 7:00 AM PAN DUMPER 83.3 mL/hr 0.9% IVPB 15 mmol 15 mmol, intravenous, at 83.3 mL/hr, Administer over 3 Hours, Once, On [facility] [email or web address]] 03/15/21 at 0600, For 1 dose New Bag 03/15/2021 6:11 AM PAN DUMPER 15 mmol 83.3 mL/hr potassium phosphate in NaCl Rate/Dose Verify 03/15/2021 8:00 PM PAN DUMPER 83.3 mL/hr 0.9% IVPB 15 mmol 15 mmol (rounded from 13.55 mmol = 0.25 mmol/kg ? 54.2 kg Dosing weight), intravenous, at 83.3 mL/hr, Administer over 3 Hours, Once, On [facility] [[email or web address]] 03/15/21 at 1800, For 1 dose, Monitor the following for replacement: Phosphorus New Bag 03/15/2021 6:17 PM PAN DUMPER 15 mmol 83.3 mL/hr potassium phosphate in NaCl Rate/Dose Verify 03/16/2021 9:00 AM PAN DUMPER 83.3 mL/hr 0.9% IVPB 15 mmol 15 mmol, intravenous, at 83.3 mL/hr, Administer over 3 Hours, Every 3 hours, First dose (after last modification) on [place] 03/16/21 at 0500, For 2 doses New Bag 03/16/2021 8:13 AM PAN DUMPER 15 mmol 83.3 mL/hr Rate/Dose Verify 03/16/2021 8:00 AM PAN DUMPER 83.3 mL/hr potassium phosphates 30 mmol in New Bag 03/12/2021 10:50 AM CS T 30 mmol 85 mL/hr NaCl 0.9% IVPB 30 mmol, intravenous, at 85 mL/hr, Administer over 6 Hours, Once, On Wed03/12/21 at 0715, For 1 dose, Peripheral or central line. [id number] 280-160-250 mg Given 2020 9:40 PM PAN DUMPER 2 packets per packet 2 packet (PHOS-NAK) 2 packet, oral, Every 4 hours while awake, First dose on Wed03/19/21 at 1000, For 4 doses, Monitor the following for replacement: Phosphorus Given 03/19/2021 5:57 PM PAN DUMPER 2 packets Given 03/19/2021 3:09 PM PAN DUMPER 2 packets propofoL (DIPRIVAN) 10 mg/mL injection - ADS Override Pull Starting on Wed03/12/21 at 0923, For 1 dose, Created by cabinet override propofol 10 mg/mL Rate/Dose Verify 03/14/2021 6:00 25 mcg/kg/min 8.13 mL/hr infusion (DIPRIVAN) AM PAN DUMPER 5-80 mcg/kg/min ? 54.2 kg Dosing weight (1.626-26.016 mL/hr, rounded to 1.63-26.02 mL/hr), intravenous, Continuous, Starting on Wed03/12/21 at 1100, Type: Titrate, Initiate at: 5 mcg/kg/min., Titrate at: 5 mcg/kg/min. every 5 min., Goal: Other, Goal: RASS -2 Rate/Dose Change 03/14/2021 4:50 AM PAN DUMPER 25 mcg/kg/min 8.13 mL/hr Rate/Dose Verify 03/14/2021 4:00 AM PAN DUMPER 30.012 mcg/kg/min 9.76 mL/h r propofoL injection (DIPRIVAN) Given 03/12/2021 9:45 AM PAN DUMPER 30 mg intravenous, Code/trauma/sedation medication, Starting on Wed03/12/21 at 0945 propofoL injection (DIPRIVAN) Given 03/12/2021 9:46 AM PAN DUMPER 30 mg intravenous, Code/trauma/sedation medication, Starting on Wed03/12/21 at 0946 rifAXIMin tablet 550 mg (XIFAXAN) Given 03/24/2021 8:52 AM PAN DUMPER 550 mg 550 mg, oral, 2 times daily, First dose on [place] 03/13/21 at 0900, Indications: Prophylaxis, medical Given 03/23/2021 9:49 PM PAN DUMPER 550 mg Given 03/23/2021 8:10 AM PAN DUMPER 550 mg rocuronium injection (ZEMURON) Given 03/12/2021 9:45 AM PAN DUMPER 70 mg Code/trauma/sedation medication, Starting on Wed03/12/21 at 0945 sodium bicarbonate tablet 650 mg Given 03/23/2021 8:10 AM PAN DUMPER 650 mg 650 mg, oral, 3 times daily, First dose on Wed03/19/21 at 1400 Given 03/22/2021 10:49 PM PAN DUMPER 650 mg Given 03/22/2021 3:05 PM PAN DUMPER 650 mg sodium bicarbonate tablet 650 mg Given 03/24/2021 8:53 AM PAN DUMPER 650 mg 650 mg, oral, 4 times daily, First dose (after last modification) on 03/23/21 at 1700 Given 03/23/2021 9:49 PM PAN DUMPER 650 mg Given 03/23/2021 5:38 PM PAN DUMPER 650 mg sodium chloride 0.9 % flush 100 mL Given 03/12/2021 1:47 PM PAN DUMPER 100 mL 100 mL, intravenous, Once in imaging, line care, needed for CT, Starting on Wed03/12/21 at 1346, For 1 dose sodium chloride 0.9 % flush 100 mL Given 03/16/2021 2:37 AM PAN DUMPER 100 mL 100 mL, intravenous, Once in imaging, line care, for CT exam, Starting on [place] 03/16/21 at 0230, For 1 dose sodium chloride 0.9 % injection 10 mL Given 03/12/2021 1:46 PM PAN DUMPER 10 mL 10 mL, intravenous, Once in imaging, line care, Starting on Wed03/12/21 at 1346, For 1 dose sodium chloride 0.9 % injection 10 mL Given 03/17/2021 6:48 AM PAN DUMPER 10 mL 10 mL, intravenous, As needed, line care, Central Venous Catheter (CVC) Non-Tunneled Non-Valved, Starting on Wed03/12/21 at 1706, Prior to blood sampling, post blood transfusion or post blood sampling. Given 03/17/2021 12:12 AM PAN DUMPER 10 mL sodium chloride 0.9 % injection 10 mL Given 03/16/2021 2:36 AM PAN DUMPER 10 mL 10 mL, intravenous, Once in imaging, line care, for CT exam, Starting on Wed03/16/21 at 0230, For 1 dose sodium chloride 0.9 % injection 5 mL 5 mL, intravenous, As needed, line care, Central Venous Catheter (CVC) Non-Tunneled Non-Valved, Starting on Wed03/12/21 at 1706, Prior to and following infusion and between multiple consecutive infusions. sodium chloride 0.9 % injection 5-15 mL Given 03/23/2021 9:51 PM PAN DUMPER 10 mL 5-15 mL, intravenous, Every 12 hours scheduled, First dose on Wed03/12/21 at 2100, Central Venous Catheter (CVC) Non-Tunneled Non-Valved: When no infusion to maintain patency. Flush 5 mL per lumen. Given 03/23/2021 8:10 AM PAN DUMPER 10 mL Given 03/22/2021 10:51 PM PAN DUMPER 10 mL spironolactone tablet 50 mg (ALDACTONE) Given 03/24/2021 8:52 AM PAN DUMPER 50 mg 50 mg, oral, Daily, First dose on Luz Marina 03/20/21 at 0900 Given 03/23/2021 8:10 AM PAN DUMPER 50 mg Given 03/22/2021 10:22 AM PAN DUMPER 50 mg thiamine tablet 100 mg (VITAMIN B1) Given 03/24/2021 8:52 AM PAN DUMPER 100 mg 100 mg, oral, Daily, First dose on Luz Marina 03/13/21 at 1230 Given 03/23/2021 8:10 AM PAN DUMPER 100 mg Given 03/22/2021 10:22 AM PAN DUMPER 100 mg vancomycin 1,000 mg in NaCl 0.9% New Bag 03/12/2021 8:54 AM CS T 1,000 mg 260 mL/hr 250 mL (VANCOCIN) IVPB 1,000 mg (rounded from 1,084 mg = 20 mg/kg ? 54.2 kg), intravenous, at 260 mL/hr, Administer over 60 Minutes, Once, On Wed03/12/21 at 0815, For 1 dose, Drug Monitoring Program: Pharmacist to adjust medication dosing based on indication and drug clearance factors., Indications: Respiratory tract infection, community acquired vasopressin 0.2 Units/mL Rate/Dose Verify 03/15/2021 11:00 0.04 Uni ts/min 12 mL/hr in NaCl 0.9% 100 mL AM PAN DUMPER infusion (PITRESSIN) 0.04 Units/min (12 mL/hr), intravenous, Continuous, Starting on 03/12/21 at 1245 New Bag 03/15/2021 10:06 AM PAN DUMPER 0.04 Units/min 12 mL/hr Rate/Dose Verify 03/15/2021 10:00 AM PAN DUMPER 0.04 Units/min 12 mL/hr documented in this encounter Active and Recently Administered Medications Times are shown in PAN DUMPER. Scheduled Medication Order 03/22/2021 03/23/2021 03/24/2021 ciprofloxacin tablet 500 mg (CIPRO) 0702 (Given - Prov ider: Nola Frederick) 0634 (Given - Provider: Lisa Stinson RSumaNSuma) 0618 (G iven - Provider: Bernardo Rosario RSumaNSuma) 500 mg, oral, Daily before breakfast, Fi rst dose on Wed03/20/21 at 0700, Take 2 hours before or 6 hours after antacids containing magnesium or aluminum, sucralfate, didanosine, polymeric phosphate bind ers, or products containing calcium, iro n, or zinc., Drug Monitoring Program: Pharmacist to adjust medication dosing based on indication and drug clearance factors., Indications: Prophylaxis, medical folic acid tablet 1 mg 1022 (Given - Provider: Julissa torres RSumaN.) 0810 (Given - Provider: Hope Guerrier R.N.) 0852 (Given - Provider: Hope Guerrier R.N.) 1 mg, oral, Daily, First dose on Luz Marina 03/13/21 at 1230 furosemide tablet 20 mg (LASIX) 1022 (Given - Provider : Julissa Villafuerte R.N.) 0810 (Given - Provider: Hope Guerrier R.N.) 0852 (Tristan araiza - Provider: Hope Guerrier R.N.) 20 mg, oral, Daily, First dose on Luz Marina 03/20/21 at 0900 lactulose solution 30 g (CHRONULAC) 1020 (Given - Prov ider: Julissa Villafuerte R.N.)1457 (Not Given - Provider: Julissa Villafuerte R.N. - Reason: Other)2248 (Not Given - Provider: Carol Rodriguez R.N. - Reason: Order parameters not met) 0810 (Given - Provider: Hope Guerrier R.N.)1404 (Given - Provider: Hope Guerrier R.N.)2149 (Given - Provider: Bernardo Rosario R.N.) 0852 (Given - Provider: Hope Guerrier R.N.) 30 g, gastric tube, 3 times daily, First dose on Wed03/12/21 at 1400, Aim for 500 cc stool in 24 hours or 3-4 loose bowel movements per day magnesium oxide tablet 400 mg (MAG-OX) 0 634 (Given - Provider: Lisa Stinson R.N.)1541 (Given - Provider: Hope Guerrier R.N.) 0618 (Given - Provider: Bernardo Rosario R.N.) 400 mg, oral, 2 times daily before break fast and dinner, First dose on 03/23/21 at 0700 magnesium sulfate in water IVPB 2 g (COMPLETED) 1618 ( New Bag - Provider: Carol Rodriguez R.N.) 2 g, intravenous, at 25 mL/hr, Administe r over 120 Minutes, Once, On 03/22/21 at 1530, For 1 dose melatonin tablet 6 mg 0048 (Given - Provider: Monica Frederick - Comment: patient requested to wait until later) 0019 (Given - Provider: Lisa Stinson RGabby - Comment: per patient request)2149 (Given - Provider: Bernardo Rosario R.N.) 6 mg, oral, Daily at bedtime, First dose (after last modification) on 03/17/[address] tablet 40 mg (PROTONIX) 1022 (Given - Provider: Julissa Villafuerte R.N.)2250 (Given - Provider: Carol Rodriguez R.N.) 0809 (Given - Provider: Hope Guerrier R.N.)2149 (Given - Provider: Bernardo Rosario R.N.) 0852 (Given - Provider: Hope Guerrier R.N.) 40 mg, oral, 2 times daily, First dose o n 03/19/21 at 2100, Swallow whole. Do NOT crush, chew, or split tablet. phytonadione (vitamin K1) tablet 10 mg (MEPHYTON) (COMPLETED ) 1111 (Given - Provider: Hope Guerrier R.N.) 10 mg, oral, Once, On 03/23/21 at 1045, For 1 dose phytonadione (vitamin K1) tablet 5 mg (MEPHYTON) (CHRISTIANACARE ELED) 1022 (Given - Provider: Julissa Villafuerte R.N.) 5 mg, oral, Daily, First dose (after las t reorder) on 03/22/21 at 0900, For 3 doses potassium chloride ER tablet 40 mEq (KLORCON/K-TAB) (C OMPLETED) 1619 (Given - Provider: Carol Rodriguez R.N. - Comment: wasnt given during previous shift) 40 mEq, oral, Once, On 03/22/21 at 1 415, For 1 dose, Swallow whole. Do NOT crush, chew, or split tablet. potassium chloride ER tablet 40 mEq (KLORCON/K-TAB) (COMPLET ED) 0809 (Given - Provider: Hope Guerrier R.N.) 40 mEq, oral, Once, On 03/23/21 at 0 800, For 1 dose, For K 3-3.4 mEq/L - give total of 40 mEq Swallow whole. Do NOT crush, chew, or split tablet., Monitor the following for replacement: Potassium, Replace Potassium per: Standard Schedule rifAXIMin tablet 550 mg (XIFAXAN) 1022 (Given - Provid er: Julissa Villafuerte R.N.)2250 (Given - Provider: Carol Rodriguez R.N.) 0810 (Given - Provider: Hope Guerrier R.N.)2148 (Given - Provider: Bernardo Rosario R.N.) 0852 (Given - Provider: Hope Guerrier R.N.) 550 mg, oral, 2 times daily, First dose on Luz Marina 11/21 at 0900, Indications: Prophylaxis, medical sodium bicarbonate tablet 650 mg (CANCELED) 1022 (Give n - Provider: Julissa Villafuerte R.N.)1505 (Given - Provider: Julissa Villafuerte R.N.)2249 (Given - Provider: Carol Rodriguez R.N.) 0810 (Given - Provider: Hope Guerrier R.N.) 650 mg, oral, 3 times daily, First dose on Wed03/19/21 at 1400 sodium bicarbonate tablet 650 mg 1738 (Tristan iven - Provider: Hope Guerrier R.N.)2149 (Given - Provider: Bernardo Rosario R.N.) 0853 (Given - Provider: Hope Guerrier R.N.)1200 (Due) 650 mg, oral, 4 times daily, First dose (after last modification) on Wed03/23/21 at 1700 sodium chloride 0.9 % injection 5-15 mL 1030 (Given - Provider: Julissa Villafuerte R.N.)2251 (Given - Provider: Carol Rodriguez RGabby) 0810 (Given - Provider: Hope Guerrier R.N.)2151 (Given - Provider: Bernardo Rosario RSumaNSuma) 0853 (Not Given - Provider: Hope Guerrier R.N. - Reason: Other) 5-15 mL, intravenous, Every 12 hours lawrence eduled, First dose on Wed03/12/21 at 2100, Central Venous Catheter (CVC) Non-Tunneled Non-Valved: When no infusion to maintain patency. Flush 5 mL per lumen. spironolactone tablet 50 mg (ALDACTONE) 1022 (Given - Provider: Julissa Villafuerte R.N.) 0810 (Given - Provider: Hope Guerrier R.N.) 0852 (G iven - Provider: Hope Guerrier R.N.) 50 mg, oral, Daily, First dose on Lzu Marina 03/20/21 at 0900 thiamine tablet 100 mg (VITAMIN B1) 1022 (Given - Prov ider: Julissa Villafuerte R.N.) 0810 (Given - Provider: Hope Guerrier R.N.) 0852 (Tristan araiza - Provider: Hope Guerrier R.N.) 100 mg, oral, Daily, First dose on Luz Marina 03/13/21 at 1230 PRN Medication Order 03/22/2021 03/23/2021 03/24/2021 LORazepam injection 1 mg (ATIVAN) 1 mg, intravenous, Every 4 hours PRN, se izures, Starting on Luz Marina 03/20/21 at 2120, For intravenous use, dilute with equal volume of 0.9% NS naloxone injection 0.2 mg 0.2 mg, intravenous, As needed, respirat ory depression, Starting on Wed03/14/21 at 1958, For RASS Score -4 or less, respiratory rate of less than 8 breaths/min. Notify provider/service and rapid response team (if available at institution). OLANZapine tablet 5 mg (ZyPREXA) (CANCELED) 0048 (Give n - Provider: Nola Frederick) 5 mg, oral, Bedtime PRN, sleep, anxiety, Starting on Wed 1 at 1830 oxyCODONE IR tablet 5 mg (ROXICODONE) (COMPLETED) 0702 (Given - Provider: Nola Frederick) 5 mg, oral, Once as needed, moderate taina n or score 4-6 of 10, severe pain or score 7-10 of 10, Starting on 03/22/21 at 0354, For 1 dose sodium chloride 0.9 % injection 10 mL 10 mL, intravenous, As needed, line care , Central Venous Catheter (CVC) Non- Tunneled Non-Valved, Starting on Wed03/12/21 at 1706, Prior to blood sampling, post blood transfusion or post blood sampling. sodium chloride 0.9 % injection 5 mL 5 mL, intravenous, As needed, line care, Central Venous Catheter (CVC) Non- Tunneled Non-Valved, Starting on Wed03/12/21 at 1706, Prior to and following infusion and between multiple consecutive infusions. documented in this encounter Additional Health Concerns Infection Onset Date Last Indicated Resolved Time COVID19 Pending 03/12/2021 03/12/2021 03/12/2021 7:32 PM PAN DUMPER documented as of this encounter Care Teams Interactive Producer Relationship Specialty Start Date End Date Elsewhere, Pcp PCP - General Family Medicine 03/10/20 11/30/21 Ervin Schroeder MD Referring Provider Family Medicine 03/24/[address] [place] [id number] documented as of this encounter
--- OUTSIDE RECORDS SUMMARY | 2021-12-28 23:35 | XMS_ITS | Encounter Summary ---
:1990 Author Organization [facility] Address [address] [place] [address] Care Team Providers Name Role Phone Elsewhere, Pcp Primary Care Provider Unavailable Encounter Details Date Type Department Care Team Description 03/10/2020 Admin Visit Department of Family Medicine, [address] [phone] [facility] [phone] Social History Tobacco Use Types Packs/Day Years [...] do you attend zoroastrianism or Never 2021 mosque services? Do you [...] or slept in a intermediate (including now)? 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 [address] [place] [phone] (Gwendolyn rahman) 01/12/2022 Appointment Laboratory Medicine Matthew Jerome M.B.BSumaS., M.D. [address] [place] [phone] (Gwendolyn rahman) 01/12/2022 Appointment Laboratory Medicine Adeline Frazier M.D., Ph.D. [address] [place] [phone] (Gwendolyn rk) 01/13/2022 Telemedicine Transplant Joel Tan L.I.C.S.W., M.S. W. [address] [place] [phone] (Wo lacey) 01/13/2022 Telemedicine Transplant Matthew Jerome M.B.B.S., M.D. [address] [place] [phone] (Gwendolyn rahman) 01/13/2022 Telemedicine Transplant Adeline Frazier M.D., Ph.D. [address] [place] [phone] (Wo rk) 01/28/2022 Office Visit Gastroenterology and Matthew Jerome, Hepatology Lilian Santillan [address] [place] [phone] (Gwendolyn rk) Scheduled Procedures Name Priority Associated Diagnoses Date/Time ESOPHAGOGASTRODUODENOSCOPY Cirrhosis Alc oholic (HCC) Hypertension Portal (HCC) ESOPHAGOGASTRODUODENOSCOPY Cirrhosis Alc oholic (HCC) Ascites Anemia Macrocytic Thrombocytopenia (HC C) Deficiency Coagulation Acquired (HCC) documented as of this encounter Visit Diagnoses Not on filedocumented in this encounter Additional Health Concerns Infection Onset Date Last Indicated Resolved Time COVID19 Pending 03/10/2020 03/10/2020 03/11/2020 12:40 PM EUCLID OPERATOR documented as of this encounter Care Teams It Business Process Architect Relationship Specialty Start Date End Date Elsewhere, Pcp PCP - General Family Medicine 03/10/20 11/30/21 documented as of this encounter
--- OUTSIDE RECORDS SUMMARY | 2021-12-28 23:35 | XMS_ITS | Encounter Summary ---
:1990 Author Organization [facility] Address [address] [place] [address] Care Team Providers Name Role Phone Elsewhere, Pcp Primary Care Provider Unavailable Encounter Details Date Type Department Care Team Description 08/27/2020 Orders Only [facility] PCP TH Sa yoav Trujillo M.D. [address] [place] [phone] (Wo rk) Social History Tobacco Use Types [...] do you attend religious or Never 2021 protestant services? Do you belong to any clubs [...] or slept in a penitentiary (including now)? 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 [address] [place] [phone] (Gwendolyn rahman) 01/12/2022 Appointment Laboratory Medicine Matthew Jerome M.B.B.SSuma, M.D. [address] [place] [phone] (Gwendolyn rahman) 01/12/2022 Appointment Laboratory Medicine Adeline Frazier M.D., Ph.D. [address] [place] [phone] (Gwendolyn rahman) 01/13/2022 Telemedicine Transplant Joel Tan L.I.C.S.W., M.S. W. [address] [place] [phone] (Gwendolyn rahman) 01/13/2022 Telemedicine Transplant Matthew Jerome M.B.B.S., M.D. [address] [place] [phone] (Gwendolyn rahman) 01/13/2022 Telemedicine Transplant Adeline Frazier M.D., Ph.D. [address] [place] [phone] (Gwendolyn rahman) 01/28/2022 Office Visit Gastroenterology and Matthew Jerome Hepatology Lilian Santillan [address] [place] [phone] (Gwendolyn rahman) Scheduled Procedures Name Priority Associated Diagnoses Date/Time ESOPHAGOGASTRODUODENOSCOPY Cirrhosis Alc oholic (HCC) Hypertension Portal (HCC) ESOPHAGOGASTRODUODENOSCOPY Cirrhosis Alc oholic (HCC) Ascites Anemia Macrocytic Thrombocytopenia (HC C) Deficiency Coagulation Acquired (HCC) documented as of this encounter Visit Diagnoses Not on filedocumented in this encounter Care Teams Hydraulic Press Tender Relationship Specialty Start Date End Date Elsewhere, Pcp PCP - General Family Medicine 03/10/20 11/30/21 documented as of this encounter
--- OUTSIDE RECORDS SUMMARY | 2021-12-28 23:35 | XMS_ITS | Encounter Summary ---
:1990 Author Organization [facility] Address [address] [place] [address] Care Team Providers Name Role Phone Elsewhere, Pcp Primary Care Provider Unavailable Reason for Visit Reason Comments Communication Encounter Details Date Type Department Care Team Description 07/12/2020 Clinical Communication Department of [facility], Pcp Communication Medicine, [facility] [place], in [place], [place] [address] [place] [phone] Social History Tobacco Use Types Packs/Day Years [...] do you attend religion or Never 2021 rastafari services? 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 documented as of this encounter Miscellaneous Notes Telephone Encounter - Christina Medina - 07/12/2020 3:44 PM CST What is the purpose of the call?: Requesting Testing Only Request Testing In the past 14 days are any of the following symptoms new to you and not related to an existing health condition?: No symptoms noted In the past 14 days have you had close contact* with a person who has a LABORATORY CONFIRMED case ofCOVID-19?: No exposure noted (Continue Screening) Have you tested positive for COVID-19 in the last 90 days?: No (Continue Screening) Why is the patient requesting testing?: Requirement for work, school, or daycare Select appropriate regional recommendations: : [place]- COVID only testing recommended (End Screening) Plan: Endpoint recommendation: Testing indicated, advised to be swabbed for COVID-19 Only , sent to [facility] located at [address] [place] [address]. The entrance is on the north side of the building. You must call [phone] during the hours of 7am to 6 pm (M-F) or 9 am to 4 pm (Sat and Sun) for an appointment time.You can also schedule via your Patient Online Services account. Testing hours are 9 am to 5 pm (M-F)and 9 am to 1 pm (Sat and Sun).When you arrive at the testing site: Remain in your vehicle and check-in by calling the number listed on the signage at the testing site or provided to you at the time you schedule your testing appointment. and Please avoid using public transportation per CDC recommendati on. If you do not have personal transportation please self-quarantine until a personal transportation option is available. *Reminder if sending patient for testing in [facility], route encounter to the correct testing pool. GROUND CLEANING ATTENDANT documented in this encounter Plan of Treatment Upcoming Encounters Date Type Specialty Care Team Description 01/07/2022 Office Visit Community Internal Medicine Ranjit Red P.A.-C. [address] [place] [phone] (Wo rk) 01/12/2022 Appointment Laboratory Medicine Matthew Jerome M.B.B.S., M.D. [address] [place] [phone] (Wo rk) 01/12/2022 Appointment Laboratory Medicine Adeline Frazier M.D., Ph.D. [address] [place] [phone] (Wo rk) 01/13/2022 Telemedicine Transplant Joel Tan L.I.C.SSumaW., M.S. W. [address] [place] [phone] (Wo rk) 01/13/2022 Telemedicine Transplant Matthew Jerome M.B.B.SSuma, M.D. [address] [place] [phone] (Wo rk) 01/13/2022 Telemedicine Transplant Adeline Frazier M.D., Ph.D. [address] [place] [phone] (Wo rk) 01/28/2022 Office Visit Gastroenterology and Matthew Jerome, Hepatology M.BLilian Staples [address] [place] [phone] (Wo rk) Scheduled Procedures Name Priority Associated Diagnoses Date/Time ESOPHAGOGASTRODUODENOSCOPY Cirrhosis Alc oholic (HCC) Hypertension Portal (HCC) ESOPHAGOGASTRODUODENOSCOPY Cirrhosis Alc oholic (HCC) Ascites Anemia Macrocytic Thrombocytopenia (HC C) Deficiency Coagulation Acquired (HCC) documented as of this encounter Visit Diagnoses Not on filedocumented in this encounter Care Teams Guest Associate Relationship Specialty Start Date End Date Elsewhere, Pcp PCP - General Family Medicine 03/10/20 11/30/21 documented as of this encounter
--- OUTSIDE RECORDS SUMMARY | 2021-12-28 23:35 | XMS_ITS | Clinical Summary ---
:1990 Author Organization [facility] Address [address] [place] [address] Care Team Providers Name Role Phone Clinic, [facility] Primary Care Provider [facility], [facility] Unavailable [phone] Allergies Active Allergy Reactions Severity Noted Date Comments Azithromycin Nausea 09/30/2018 Nausea and vomi ting. Medications Medication Sig Dispensed Refills Start Date End Date Status acetaminophen Take 325-975 mg by 0 Active (TYLENOL) 325 mg oral mouth every 4 tablet (four) hours as needed. ondansetron (ZOFRAN) 4 Dissolve 4 mg in mouth every 6 (six) hours as needed for nausea. Authorized by: Dominick Hickey DO 0 2018 Active mg oral ODT Quantitiy: 10 tablets No refils omeprazole (PRILOSEC) Take 20 mg by mouth once a d ay as needed. Take once daily before a meal. 0 09/20/2018 Active 20 mg oral delayed release capsule Authorized by: Catia Braxton MD Quanity: 30 tablets Refill: 2 refills by 09/20/2019 potassium chloride Take 20 mEq by mouth twice a day with breakfast and lunch. Authorized by: Catia Hickey MD 0 09/20/2018 Active (K-DUR) 20 mEq oral extended release Quanity: 60 tablets tablet No refills traZODone (DESYREL) 50 Take 50 mg by 0 Active mg oral tablet mouth at bedtime as needed for Sleep. oxyCODONE, immediate Take 5 mg by mouth 0 Active release, (ROXICODONE) every 6 (six) 5 mg oral tablet hours as needed. LORazepam (ATIVAN) 0.5 Take 0.5 mg by 0 Active mg oral tablet mouth once a day as needed. Active Problems Problem Noted Date Acute hepatitis 09/30/2018 Accidental acetaminophen overdose 09/30/2018 Closed bicondylar fracture of distal end of left humer us with routine 09/30/2018 healing Idiopathic pancreatitis 09/30/2018 Gastroesophageal reflux disease without esophagitis Marijuana abuse 09/30/2018 Tobacco abuse 09/30/2018 Hypomagnesemia 09/30/2018 Family History Relation Status Comments Brother 1 Alive Brother 2 Alive Brother 3 Alive Father Alive Mother Alive Sister 1 Alive Sister 2 Alive Social History Tobacco Use Types Packs/Day Years Used Date Smoking Tobacco: Some Days Cigarettes 0.1 5 S tarted: 2013 Smokeless Tobacco: Never Tobacco Cessation: Ready to Quit: No; Co unseling Given: No Comments: Currently smokes 1 cigarettes every 2 days. Alcohol Use Standard Drinks/Week Comments Yes 8 (1 standard drink = 0.6 oz pure alcoho l) 2-3 drinks 4 times per week Alcohol Habits Answer Date Recorded How often do you have a drink containing Not asked alcohol? How many drinks containing alcohol do you Not asked have on a typical day when you are drinking? How often do you have six or more drinks on Not asked one occasion? Comment: 2-3 drinks 4 times per week 09/30/2018 Sex Assigned at Date Recorded Not on file Last Filed Vital Signs Vital Sign Reading Time Taken Comments Blood Pressure 101/55 10/02/2018 10:29 AM CDT Pulse 82 10/02/2018 10:29 AM CDT Temperature 36.8 ??C (98.3 ??F) 10/02/2018 10:29 AM CDT Respiratory Rate 18 10/02/2018 10:29 AM CDT Oxygen Saturation 93% 10/02/2018 10:29 AM CDT Inhaled Oxygen Concentration - - Weight 69.2 kg (152 lb 9.6 oz) 10/02/2018 7:02 AM CDT Height 157.5 cm (5' 2) 09/30/2018 5:27 AM CDT Body Mass Index 27.91 09/30/2018 5:27 AM CDT Plan of Treatment Health Maintenance Due Date Last Done Comments Pap Smear 1990 COVID-19 Vaccine (#1) 01/09/1991 Influenza Vaccine (#1) 2022 02/26/2009, 03/26/2008, 03/21/2007, Additional history exists Adult Tetanus Booster 03/07/2024 03/07/2014 Hepatitis C Screening Completed 09/30/2018 Pneumococcal <65 Aged Out No longer eligi ble based on patient's age to complete this to [facility] Insurance Payer Benefit Plan / Subscriber ID Effective Dates Phone Addre ss Type Group BLUE CROSS BCBS [facility] [id number] 2018-Present [phone] [address] [place] [address] CariasCatia Patrica Personal/Family Self 1990 A [address] (Home) [address] [place] [phone] Advance Directives For more information, please contact: [phone] Latest Code Status on File Code Status Date Activated Date Inactivated Comments Full Code 09/30/2018 4:42 AM 10/02/2018 6:07 PM How was code status determined? Patient Care Teams Space Physicist Relationship Specialty Start Date End Date [facility] PCP - General 09/30/18 [address] [place] [phone] [facility] PCP - Primary Care Clinic [address] [place] [phone]
--- OUTSIDE RECORDS SUMMARY | 2021-12-28 23:35 | XMS_ITS | Encounter Summary ---
:1990 Author Organization [facility] Address [address] [place] [address] Care Team Providers Name Role Phone Elsewhere, Pcp Primary Care Provider Unavailable Reason for Visit Reason Onset Date Comments Outpatient COVID-19 Testing 07/21/2020 Encounter Details Date Type Department Care Team Description 07/21/2020 External Outreach Department of Pedro Evans And Internal Medicine in [place], D[place]. (Suspected) Exposure [place], [place] [address] COVID-19 (Primary [address] [place], [place] Dx) [facility] [place] [phone] Social History Tobacco Use Types Packs/Day Years [...] or relatives? How often do you attend moravian or Never 2021 gnosticist services? Do you belong to any clubs or No 07/17/2021 organizations such as moravian groups, unions, fraternal or athletic groups, or [...] or slept in a prison (including now)? 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 - 07/21/2020 7:59 AM CDT Encounter created for COVID-19 screening. documented in this encounter Miscellaneous Notes Addendum Note - Digna Del Toro R.N. - 07/21/2020 7:59 AM CDT Addended by: DIGNA DEL TORO on: 07/22/2020 12:06 PM Modules accepted: Orders documented in this encounter Plan of Treatment Upcoming Encounters Date Type Specialty Care Team Description 01/07/2022 Office Visit Community Internal Medicine Ranjit Red P.A.-C. [address] [place] [address] [facility] [phone] (Wo rk) 01/12/2022 Appointment Laboratory Medicine Matthew Jerome M.B.BSumaS., MJules [address] [place] [address] [phone] (Wo rk) 01/12/2022 Appointment Laboratory Medicine Adeline Frazier M.D., Ph.D. [address] [place] [address] [phone] (Wo rk) 01/13/2022 Telemedicine Transplant Joel Tan L.I.C.S.W., M.S. W. [address] [place] [phone] (Wo rk) 01/13/2022 Telemedicine Transplant Matthew Jerome M.B.B.S., Callie. [address] [place] [address] [phone] (Wo rk) 01/13/2022 Telemedicine Transplant Adeline Frazier M.D., Ph.D. [address] [place] [address] [phone] (Wo rk) 01/28/2022 Office Visit Gastroenterology and Matthew Jerome, Hepatology Ty[place], MCee. [address] [place] [address] [phone] (Gwendolyn rk) Scheduled Procedures Name Priority Associated Diagnoses Date/Time ESOPHAGOGASTRODUODENOSCOPY Cirrhosis Alc oholic (HCC) Hypertension Portal (HCC) ESOPHAGOGASTRODUODENOSCOPY Cirrhosis Alc oholic (HCC) Ascites Anemia Macrocytic Thrombocytopenia (HC C) Deficiency Coagulation Acquired (HCC) documented as of this encounter Visit Diagnoses Diagnosis Contact With And (Suspected) Exposure To COVID-19 - Primary documented in this encounter Additional Health Concerns Infection Onset Date Last Indicated Resolved Time COVID19 Pending 07/21/2020 07/21/2020 07/22/2020 12:06 PM CDT documented as of this encounter Care Teams Freight Flow Sales Leader Relationship Specialty Start Date End Date Elsewhere, Pcp PCP - General Family Medicine 03/10/20 11/30/21 documented as of this encounter
--- OUTSIDE RECORDS SUMMARY | 2021-12-28 23:35 | XMS_ITS ---
:[address] [facility] Address [address] [place] [address] Care Team Providers Name Role Phone Ana Red P.A.-C. Primary Care Provider [facility] [place] - MNMCEvaluation began on 09/26/2021Marked as Deferred on 10/16/2021 Liver CoordinatorTXP PRE LIVER NURSE TEAM 2 ROCHPhone: N/AFax: N/AEmail: N/A Scores Score Value Updated Expires Exceptions/Reas ons CPRA Not available UNOS MELD Not available MELD (Calc) 30 12/04/2021 [place] Organ Diagnosis Organ Primary Contributory Liver Alcoholic Cirrhosis Care Team Name Role Phone Fax Email TXP PRE LIVER Liver Coordinator N/A N/A N/A NURSE TEAM 2 DAYRON Vann, Transplant Surgeon [phone] [email or web address] [email or web address] Matthew Jerome, Referring Provider [phone] [email or web address] Lilian Santillan Transplant Car Builder du Events Pre-Transplant Referred: 08/14/2021 Evaluation began: 09/26/2021 Committee: 10/15/2021
--- OUTSIDE RECORDS SUMMARY | 2021-12-28 23:35 | XMS_ITS | Encounter Summary ---
:1990 Author Organization [facility] Address [address] [place] [address] Care Team Providers Name Role Phone Elsewhere, Pcp Primary Care Provider Unavailable Encounter Details Date Type Department Care Team Description 03/12/2021 Ancillary Procedure Department of General Surgery Social History Tobacco Use Types Packs/Day Years [...] or relatives? How often do you attend buddhist or Never 2021 cheondoism services? Do you belong to any clubs or No 07/17/2021 organizations such as buddhist groups, unions, fraternal or athletic groups, or [...] or slept in a fci (including now)? 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 [address] [place] [phone] (Wo rk) 01/12/2022 Appointment Laboratory Medicine Matthew Jerome M.B.B.S., M.D. [address] [place] [phone] (Gwendolyn rahman) 01/12/2022 Appointment Laboratory Medicine Adeline Frazier M.D., Ph.D. [address] [place] [phone] (Gwendolyn rahman) 01/13/2022 Telemedicine Transplant Joel Tan L.I.C.SZara, M.S. W. [address] [place] [phone] (Wo rk) 01/13/2022 Telemedicine Transplant Matthew Jerome M.B.B.S., M.D. [address] [place] [phone] (Gwendolyn rahman) 01/13/2022 Telemedicine Transplant Adeline Frazier M.D., Ph.D. [address] [place] [address] [phone] (Gwendolyn rahman) 01/28/2022 Office Visit Gastroenterology and Matthew Jerome, Hepatology Lilian Santillan [address] [place] [phone] (Gwendolyn rahman) Scheduled Procedures Name Priority Associated Diagnoses Date/Time ESOPHAGOGASTRODUODENOSCOPY Cirrhosis Alc oholic (HCC) Hypertension Portal (HCC) ESOPHAGOGASTRODUODENOSCOPY Cirrhosis Alc oholic (HCC) Ascites Anemia Macrocytic Thrombocytopenia (HC C) Deficiency Coagulation Acquired (HCC) documented as of this encounter Procedures Procedure Name Priority Date/Time Associated Diagnosis Comme nts GENERAL SURGERY Routine 03/12/2021 11:00 AM Resul ts for this IMAGE EXAM METALLURGICAL LAB TECHNICIAN procedure are i n the results section. documented in this encounter Results Non-Radiology Image-General Surgery Image Exam (03/12/2021 11:00 AM METALLURGICAL LAB TECHNICIAN) Specimen (Source) Anatomical Location Collection Method / Collectio n Time Received Time / Laterality Volume Narrative IIMS - 03/13/2021 6:34 PM METALLURGICAL LAB TECHNICIAN This order has been created and auto-finalized to support the import of images acquired without order. The clini ada documentation to support these images can be found on the encounter angelina t produced images. Provider Not In System IMG NON RAD IMAGING PROCEDUR ES Performing Organization Address City/State/ZIP Code Phon e Number IIMS IIMS NA documented in this encounter Visit Diagnoses Not on filedocumented in this encounter Additional Health Concerns Infection Onset Date Last Indicated Resolved Time COVID19 Pending 03/12/2021 03/12/2021 03/12/2021 7:32 PM METALLURGICAL LAB TECHNICIAN documented as of this encounter Care Teams Logging Crew Supervisor Relationship Specialty Start Date End Date Elsewhere, Pcp PCP - General Family Medicine 03/10/20 11/30/21 documented as of this encounter
--- OUTSIDE RECORDS SUMMARY | 2021-12-28 23:36 | XMS_ITS | Clinical Summary ---
:1990 Author Organization [facility] [place] [address] Care Team Providers Name Role Phone Ervin Schroeder MD Primary Care Provider [phone] Allergies Active Allergy Reactions Severity Noted Date Comments Azithromycin Nausea And Vomiting Low 05/07/2016 Other re action(s): Other (see comments) Unknown Other reaction( s): Unknown Other reaction( s): GI intolerance Medications Medication Sig Dispensed Refills Start Date End Date Status lactulose 10 gram/15 mL Take 30 mL (20 g) 946 mL 0 02/01/20 21 Active solutionIndications: by mouth 3 times Hyperammonemia (HC) daily. vitamin a (AQUASOL A) Take 10,000 units 0 Active 10,000 unit capsule by mouth every Wednesday, Wednesday and Wednesday. furosemide (LASIX) 20 Take 40 mg by 0 Active mg tablet mouth once daily. oxyCODONE (ROXICODONE) Take 2.5-5 mg by 0 Active 5 mg immediate release mouth 2 times tablet daily if needed for Pain. spironolactone Take 100 mg by 0 Active (ALDACTONE) 50 mg mouth once daily. tablet magnesium oxide 400 mg Take 400 mg by 0 Active magnesium capsule mouth 2 times daily. ciprofloxacin HCl Take 500 mg by 0 Active (CIPRO) 500 mg tablet mouth once daily. diazePAM (VALIUM) 5 mg Take 5 mg by 0 Active tablet mouth at bedtime. ergocalciferol (VITAMIN Take 50,000 units 0 Active D2; DRISDOL) 50,000 by mouth once unit capsule weekly. On Mondays. folic acid 1 mg tablet Take 1 mg by 0 Active mouth once daily. gabapentin (NEURONTIN) Take 600 mg by 0 Active 300 mg capsule mouth 2 times daily. gabapentin (NEURONTIN) Take 900 mg by 0 Active 300 mg capsule mouth at bedtime. hydrOXYzine HCL Take 25-50 mg by 0 Active (ATARAX) 25 mg tablet mouth at bedtime. pantoprazole (PROTONIX) Take 40 mg by 0 Active 40 mg delayed-release mouth once daily. tablet rifAXIMin (XIFAXAN) 550 Take 550 mg by 0 Active mg tablet mouth 2 times daily. rOPINIRole (REQUIP) 2 Take 2 mg by 0 Active mg tablet mouth at bedtime. thiamine (VITAMIN B1) Take 100 mg by 0 Active 100 mg tablet mouth once daily. ondansetron (ZOFRAN Place 1 Tablet (8 30 Tablet 0 08/27/2021 Active ODT) 8 mg mg) on the tongue disintegrating every 8 hours if tabletIndications: needed for Decompensated hepatic Nausea/Vomiting. cirrhosis (HC) promethazine Take 1 Tablet (25 30 Tablet 0 08/27/2021 Active (PHENERGAN) 25 mg mg) by mouth tabletIndications: every 6 hours if Decompensated hepatic needed for cirrhosis (HC) Nausea/Vomiting. Active Problems Problem Noted Date Current drinker of alcohol 10/25/2021 Chronic pain syndrome 10/10/2021 Hepatic encephalopathy 10/10/2021 Encounter for long-term (current) use of insulin 10/10 Eating disorder 10/10/2021 Portal hypertension 09/05/2021 Overview: Formatting of this note might be differe nt from the original. Added automatically from request for dolly daley [id number] Acute alcoholic hepatitis 08/26/2021 Acquired coagulation factor deficiency 07/07/2021 Overview: Formatting of this note might be differe nt from the original. 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 IUD migration 01/30/2021 Long QT syndrome 01/30/2021 Decompensated hepatic cirrhosis 01/24/2021 Abdominal pain 01/23/2021 Chronic pancreatitis 01/23/2021 Abdominal ascites 01/23/2021 Coagulopathy 01/23/2021 Hepatic steatosis 11/08/2019 Marijuana use 11/08/2019 UTI (urinary tract infection) 11/08/2019 S/P hardware removal 07/12/2019 Gastroesophageal reflux disease without esophagitis Idiopathic acute pancreatitis without necrosis or infe ction 04/15/2019 S/P ORIF (open reduction internal fixation) fracture 0 09/21/2018 Acute pancreatitis 09/08/2018 Hypokalemia 09/08/2018 Controlled substance agreement signed 01/12/2017 Overview: Signed: 07/05/12-Kiana Pino APRN, SENIOR COMPUTER SPECIALIST - p sychiatry Anxiety disorder; NOS; APPLE and Panic Disorder Symptoms 01/19/2012 Attention deficit disorder without mention of hyperact ivity 06/30/2007 Iron deficiency anemia 03/06/2007 seasonal allergies 04/06/2006 Drug abuse, marijuana Resolved Problems Problem Noted Date Resolved Date Abnormal LFTs 01/23/2021 08/26/2021 MOSHE (acute kidney injury) 04/15/2019 08/26/2021 Closed fracture of distal end of left humerus with routine 0 11/30/2018 04/14/2019 healing Hypokalemia 09/11/2018 04/14/2019 Fracture, humerus 08/29/2018 04/14/2019 APPLE (generalized anxiety disorder) 08/06/201504/14 Insomnia 04/21/2014 04/14/[address] 04/13/2014 11/26/2015 Overview: Remove 04/13/2017 Drug use 03/07/2014 04/14/2019 Late care 02/28/2014 04/13/2014 Adjustment disorder with mixed anxiety and depressed mood 01/19/2012 Encounters Date Type Specialty Care Team Description 11/09/2021 Emergency Dominick Hickey, Hepatic encephalopathy (HC) (Primary Dx) ; Mattie uBrdick Prolonged Q-T interval on ECG; MD Yue Decompensated hepatic cirrhosis (HC); Chronic pain sy ndrome; COVID-19 11/09/2021 Travel 10/25/2021 Emergency Edil Lo MD Chronic liver failure without hepatic co ma (HC) (Primary Dx); Mattie Burdick Flank taina n; MD Yue Other chronic pain 10/25/2021 Travel from Last 3 Months Immunizations Name Administration Dates Next Due AMB Influenza, IIV3 (Age >=3 02/26/2009, 03/26/2008 years)(Flu Clinic Only) DTP 03/14/1992, 02/23/1991, 1990, 1990 DTaP 05/26/1995 HIB PRP-OMP (PedvaxHIB) 02/08/1992, 06/01/1991, 03/08/1991 Hepatitis B (Peds) 12/28/2000, 12/17/1997, 04/30/1997 Influenza, IIV3 (Age >=3 years) 02/26/2009, 03/26/2008, 03/03, 03/21/2003, 03/03/2003 Influenza, IIV4 03/07/2014 MMR 12/17/1997, 11/09/1991 Oral Polio Vaccine 05/26/1995, 03/14/1992, 02/23/1991, 1990, 1990 Td (Age >=7 Years) 09/08/2002 Tdap 03/07/2014 Family History Medical History Relation Name Comments Good Health Brother 2 Ricardo Hyperlipidemia Father Roscoe Arthritis Maternal Grandfather Cancer-prostate Maternal Grandfather Hyperlipidemia Maternal Grandfather Hypertension Maternal Grandfather Arthritis Maternal Grandmother Hyperlipidemia Maternal Grandmother Thyroid Disease Maternal Uncle Allergies Mother Parris seasonal Good Health Mother Parris Good Health Sister 2 Adina Relation Name Status Comments Brother 1 Alive x2 Brother 2 Ricardo Father Roscoe Alive Maternal Grandfather Alive Maternal Grandmother Alive Maternal Uncle Mother Parris Alive Paternal Grandfather Alive Paternal Grandmother Alive Sister 1 Alive x2 Sister 2 Adina Social History Tobacco Use Types Packs/Day Years Used Date Current Some Day Smoker Cigarettes 0.1 2 Smokeless Tobacco: Never Used Tobacco Cessation: Ready to Quit: Yes; C ounseling Given: Yes Alcohol Use Standard Drinks/Week Comments Not Currently 0 (1 standard drink = 0.6 oz pure alcoho l) Sober for last year Alcohol Habits Answer Date Recorded How often do you have a drink containing alcohol? Not asked 02/07/2019 How many drinks containing alcohol do you have on a Not aske d 02/07/2019 typical day when you are drinking? How often do you have six or more drinks on one Not asked 05/25/2019 occasion? Comment: Sober for last year 08/26/2021 Sex Assigned at Date Recorded Not on file Obstetrics History Para Term AB IAB SAB Ectopic Multiple Living Live Births 1 Date Outcome GA Total Labor/2nd/3rd Weight Sex Delivery Anes PTL Angelica A 1 A5 Name Clin Labor 04/04 Term 41w 18h 00m/ 3.4 kg M Vag Epid /2013 0d (7 lb 8 ral oz) Comments: adopted out, [place] couple. patient did meet couple. Last Filed Vital Signs Vital Sign Reading Time Taken Comments Blood Pressure 112/81 11/09/2021 2:01 PM CDT Pulse 112 11/09/2021 2:01 PM CDT Temperature 36.9 ??C (98.4 ??F) 11/09/2021 10:22 AM CDT Respiratory Rate 14 11/09/2021 7:05 AM CDT Oxygen Saturation 95% 11/09/2021 10:22 AM CDT Inhaled Oxygen Concentration - - Weight 72 kg (158 lb 11.7 oz) 11/09/2021 7:05 AM CDT Height 157.5 cm (5' 2) 11/09/2021 7:05 AM CDT Body Mass Index 29.03 11/09/2021 7:05 AM CDT Plan of Treatment Health Maintenance Due Date Last Done Comments Pap test for age 21-65 02/28/2017 02/28/2014 Depression screening for age 12+ 05/09/2020 05/09/2019, 10/2019, 02/07/2019, Additional history exists BMI (ht and wt on same day) for 11/08/2020 11/09/2019, 07/01, age 18+ 06/23/2019, Additional history exists COVID-19 vaccine series (3 - 09/13/2021 04/15/2021, 021 Booster for Pfizer series) Influenza for age 9-49 01/01/2022 03/07/2014, 02/26/2009, 02/26/2009, Additional history exists Tetanus booster 03/07/2024 03/07/2014, 09/08/2002 Tdap Completed 03/07/2014 Hepatitis C screening for age Completed 09/30/2018, 2013 18-79 Medical Devices Implanted Type Area Aerobics Instructor Device Shelf Model / Identifier Expiration Serial / Date Lot Partially Threaded Screws Left: [id number] [id number] / Implanted: Qty: 1 on 08/29/2018 by Omar Montesinos MD at [facility] [employer] / Description: From [facility] zay tray Explanted Type Area Aerobics Instructor Device Shelf Model / Identifier Expiration Serial / Date Lot 2.7mm Locking Screw Left: [place] [id number] / Explanted: Qty: 1 on 08/29/2018 by Omar Montesinos MD at [facility] [employer] / Description: From [facility] zay tray Distal Medial Humerus Plates Left: Elbow [employer] [id number] / Implanted: Qty: 1 on 08/29/2018 by Omar Montesinos MD at [facility] / Explanted: Qty: 1 on 06/27/2019 by Omar Montesinos MD at [facility] Description: Amos from [employer] elbow ad d on tray Procedures Procedure Name Priority Date/Time Associated Comments Diagnosis XR CHEST 1 VIEW STAT 11/09/2021 12:21 Results for this PORTABLE PM CDT procedure are i n the results section. COVID 19 STAT 11/09/2021 11:42 Results for this AM CDT procedure are i n the results section. COVID 19 COLLECTION STAT 11/09/2021 11:42 Resu lts for this AM CDT procedure are i n the results section. LACTATE VENOUS Timed 11/09/2021 10:09 Results f or this AM CDT procedure are i n the results section. CT ABDOMEN PELVIS WO STAT 11/09/2021 10:06 Res ults for this AM CDT procedure are i n the results section. CT HEAD BRAIN WO STAT 11/09/2021 10:05 Results for this AM CDT procedure are i n the results section. XR CHEST 1 VIEW STAT 11/09/2021 10:04 Results for this PORTABLE AM CDT procedure are i n the results section. BLOOD CULTURE STAT 11/09/2021 7:52 AM Results for this CDT procedure are i n the results section. URINALYSIS STAT 11/09/2021 7:45 AM Results f or this MICROSCOPIC CDT procedure are i n the results section. URINE CULTURE STAT 11/09/2021 7:45 AM Results for this CDT procedure are i n the results section. DRUG ABUSE SCREEN STAT 11/09/2021 7:45 AM Resu lts for this RAPID URINE INHOUSE CDT procedur e are in the results section. UA W/ SEDIMENT EXAM STAT 11/09/2021 7:45 AM Re sults for this REFLEXED PER CRITERIA CDT proced ure are in the results section. TYPE & SCREEN STAT 11/09/2021 7:34 AM Results for this CDT procedure are i n the results section. CBC WITH AUTO STAT 11/09/2021 7:34 AM Results for this DIFFERENTIAL CDT procedure are i n the results section. C-REACTIVE PROTEIN STAT 11/09/2021 7:34 AM Res ults for this CDT procedure are i n the results section. LACTATE VENOUS STAT 11/09/2021 7:34 AM Results for this CDT procedure are i n the results section. BLOOD CULTURE STAT 11/09/2021 7:34 AM Results for this CDT procedure are i n the results section. APTT STAT 11/09/2021 7:34 AM Results f or this CDT procedure are i n the results section. AMMONIA STAT 11/09/2021 7:34 AM Results f or this CDT procedure are i n the results section. BLOOD GAS,VENOUS STAT 11/09/2021 7:34 AM Resul ts for this CDT procedure are i n the results section. ETHANOL SERUM OR STAT 11/09/2021 7:34 AM Resul ts for this PLASMA CDT procedure are i n the results section. SALICYLATE STAT 11/09/2021 7:34 AM Results f or this CDT procedure are i n the results section. HCG BETA STAT 11/09/2021 7:34 AM Results f or this QUANT, CDT procedure ar e in the results section. LIPASE STAT 11/09/2021 7:34 AM Results f or this CDT procedure are i n the results section. MAGNESIUM STAT 11/09/2021 7:34 AM Results f or this CDT procedure are i n the results section. COMP METABOLIC PANEL STAT 11/09/2021 7:34 AM R esults for this CDT procedure are i n the results section. PROTIME-INR STAT 11/09/2021 7:34 AM Results f or this CDT procedure are i n the results section. CBC WITH AUTO STAT 11/09/2021 7:34 AM Results for this DIFFERENTIAL CDT procedure are i n the results section. EKG 12 LEAD STAT 11/09/2021 7:21 AM Results f or this CDT procedure are i n the results section. URINE CULTURE FRANCESCA 10/25/2021 7:43 AM Results for this CDT procedure are i n the results section. URINALYSIS STAT 10/25/2021 7:43 AM Results f or this MICROSCOPIC CDT procedure are i n the results section. URINE FRANCESCA 10/25/2021 7:43 AM Result s for this CDT procedure are i n the results section. UA W/ SEDIMENT EXAM STAT 10/25/2021 7:43 AM Re sults for this REFLEXED PER CRITERIA CDT proced ure are in the results section. CT ABDOMEN PELVIS STAT 10/25/2021 7:41 AM Resu lts for this STONE PROTOCOL WO CDT procedure are in the results section. MAGNESIUM FRANCESCA 10/25/2021 7:18 AM Results f or this CDT procedure are i n the results section. CK TOTAL FRANCESCA 10/25/2021 7:18 AM Results f or this CDT procedure are i n the results section. RED CELL MORPHOLOGY STAT 10/25/2021 7:18 AM Re sults for this CDT procedure are i n the results section. PLATELET ESTIMATE STAT 10/25/2021 7:18 AM Resu lts for this CDT procedure are i n the results section. CBC WITH AUTO STAT 10/25/2021 7:18 AM Results for this DIFFERENTIAL CDT procedure are i n the results section. ETHANOL SERUM OR STAT 10/25/2021 7:18 AM Resul ts for this PLASMA CDT procedure are i n the results section. PROTIME-INR STAT 10/25/2021 7:18 AM Results f or this CDT procedure are i n the results section. COMP METABOLIC PANEL STAT 10/25/2021 7:18 AM R esults for this CDT procedure are i n the results section. CBC WITH AUTO STAT 10/25/2021 7:18 AM Results for this DIFFERENTIAL CDT procedure are i n the results section. from Last 3 Months Results XR CHEST 1 VIEW PORTABLE (11/09/2021 12:21 PM CDT)Only the most recent of2 resultswithin the time period is included. Anatomical Region Laterality Modality HEART, THORAX, CHEST Digital Radiography Specimen (Source) Anatomical Collection Method Collection Time Re ceived Time Location / / Volume Laterality 11/09/2021 12:48 PM CDT Impressions 11/09/2021 12:48 PM CDT Nasogastric tube in the stomach. Dictated by Manoj Adamson MD @ 2021 12:48:16 PM (Electronically Signed) Narrative 11/09/2021 12:48 PM CDT For Patients: ??As a result of the Cures Act, medical imaging exams and procedure report s are released immediately into your [facility] medical record. ??You may view this report before your referring provider. ??If you have questions, please contact your health care provider. INDICATION: Nasogastric tube placement. COMPARISON: Portable AP chest November 09, 2021 at 9:30 a.m.; abdominal and pelvic CT same date at 10 a.m. TECHNIQUE: Portable AP chest including upper abdome n. FINDINGS: Nasogastric tube identified in the stoma ch. Right-sided pleural effusion. Procedure Note Manoj Adamson MBBS - 11/09/2021For matting of this note might be different from the original. For Patients: As a result of the Cures Act, medical imaging exams and procedure reports are released immediately into your electronic medical record. You may view this report before your referring provider. If you have questions, please contact [facility] health care provider. INDICATION: Nasogastric tube placement. COMPARISON: Portable AP chest November 09, 2021 at 9:30 a.m.; abdominal and pelvic CT same date at 10 a.m. TECHNIQUE: Portable AP chest including upper abdome n. FINDINGS: Nasogastric tube identified in the stoma ch. Right-sided pleural effusion. IMPRESSION: Nasogastric tube in the stomach. Dictated by Manoj Adamson MD @ 2021 12:48:16 PM (Electronically Signed) Mattie Burdick MD [place] PORTABLE (ABNORMAL) COVID 19 (11/09/2021 11:42 AM CDT) [facility] Method Time Signature COVID 19 Detected (A) Not detected 11/09/2021 [facility] 12:25 PM [facility] Specimen Anatomical Location / Collection Method Collection Hiro e Received Time (Source) Laterality / Volume Other SPECIMEN FROM Non-Blood / 11/09/2021 11:42 11/09/2021 NASOPHARYNGEAL Unknown AM CDT 11:55 AM CDT STRUCTURE / Unknown Narrative [facility] - 12:25 PM CDT This test has been authorized by FDA und er an Emergency Use Authorization (EUA). This test is only authorized for the duration of time the declaration that circumstances exist justifying the authorization of th e emergency use of in vitro diagnostic tests for detection of SARS-CoV-2 virus and/or diagnosis of COVID-19 infection under section 564(b)(1) of the Act, 21 U.S.C. 360bbb-3(b) (1), unless the authorization is terminated or revoked sooner. Mattie Burdick MD MICROBIOLOGY Performing Organization Address City/State/ZIP Code Phon e Number [facility] [address] [place] [address] COVID 19 COLLECTION (11/09/2021 11:42 AM CDT) [facility] Method Time Signature TESTING [facility] 11/09/2021 [facility] 11:55 AM [facility] Comment: Specimen submitted to [facility] for testing. Specimen Anatomical Location / Collection Method Collection Hiro e Received Time (Source) Laterality / Volume Other SPECIMEN FROM Non-Blood / 11/09/2021 11:42 11/09/2021 NASOPHARYNGEAL Unknown AM CDT 11:55 AM CDT STRUCTURE / Unknown Mattie Burdick MD SEND OUTS Performing Organization Address City/State/ZIP Code Phon e Number [facility] [address] [place] [address] (ABNORMAL) LACTATE VENOUS (11/09/2021 10:09 AM CDT)Only the most recent of2 resultswithin the time period is included. athologist Signature LACTATE,VENOUS 3.3 (H) 0.5 - 2.0 11/09/2021 [place] mmol/L 11:[address] [facility] Specimen Anatomical Collection Method Collection Time Receive d Time (Source) Location / / Volume Laterality Blood BLOOD SPECIMEN / [place] / 11/09/2021 10:09 022 Unknown Unknown AM CDT 10:11 AM CDT Dominick Hickey DO CHEMISTRY Performing Organization Address City/[facility]/ZIP Code Phon e Number [facility] [address] [place] [address] CT ABDOMEN PELVIS WO (11/09/2021 10:06 AM CDT) Anatomical Region Laterality Modality Abdomen, Pelvis, AORTA, LIVER, SPLEEN Co mputed Tomography Specimen (Source) Anatomical Collection Method Collection Time Re ceived Time Location / / Volume Laterality 11/09/2021 11:42 AM CDT Impressions 11/09/2021 11:42 AM CDT 1. Moderate to large amount of ascites, similar to the previous examination. 2. Apparent constipation with large amou nt stool in colon. 3. Bladder distended. 4. Fatty liver and suspected cirrhosis. 5. Apparent portal venous hypertension w ith small recanalized umbilical vein and mild splenomegaly in addition to the ascites. 6. Right-sided pleural effusion of moder ate to large size. 7. Anasarca. Please note that all CT scans at this [facility] use dose modulation, iterative reconstruction, and/or weight-based dosing when appropriate to reduce radiation dose to as low as reasonably achievable. Dictated by Silvestre Villegas MD @ 11/09/2021 11:42:49 AM (Electronically Signed) Narrative 11/09/2021 11:42 AM CDT For Patients: ??As a result of the Cures Act, medical imaging exams and procedure report s are released immediately into your [facility] medical record. ??You may view this report before your referring provider. ??If you have questions, please contact your health care provider. INDICATION: Abdominal distension. TECHNIQUE: Volumetric helical scanning of the abdom en and pelvis was performed without contrast material. Coronal and sagittal reconstructions were obtained. COMPARISON: Abdomen/pelvis CT of 10/25/2021. FINDINGS: A moderate to large amount of ascites is demonstrated, similar to the previous examination. A large amount of stool is present in th e right, transverse and left colon. The bowel is otherwise unremarkable. The liver is fatty and suspected to be c irrhotic. A recanalized umbilical vein appears to be present. The spleen is mildly enlarged. Anasarca is noted. The adrenal glands an d pancreas are negative. The kidneys are unremarkable. No lymphadenopathy is evident. An IUD is present in the uterus. Uterus is otherwise unremarkable. The bladder is distended. A right pleural effusion of moderate to large size is noted. The heart size is normal. Procedure Note Silvestre Villegas MD - 11/09/2021Form atting of this note might be different from the original. For Patients: As a result of the Cures Act, medical imaging exams and procedure reports are released immediately into your electronic medical record. You may view this report before your referring provider. If you have questions, please contact yo health care provider. INDICATION: Abdominal distension. TECHNIQUE: Volumetric helical scanning of the abdom en and pelvis was performed without contrast material. Coronal and sagittal reconstructions were obtained. COMPARISON: Abdomen/pelvis CT of 10/25/2021. FINDINGS: A moderate to large amount of ascites is demonstrated, similar to the previous examination. A large amount of stool is present in th e right, transverse and left colon. The bowel is otherwise unremarkable. The liver is fatty and suspected to be c irrhotic. A recanalized umbilical vein appears to be present. The spleen is mildly enlarged. Anasarca is noted. The adrenal glands an d pancreas are negative. The kidneys are unremarkable. No lymphadenopathy is evident. An IUD is present in the uterus. Uterus is otherwise unremarkable. The bladder is distended. A right pleural effusion of moderate to large size is noted. The heart size is normal. IMPRESSION: 1. Moderate to large amount of ascites, similar to the previous examination. 2. Apparent constipation with large amou nt stool in colon. 3. Bladder distended. 4. Fatty liver and suspected cirrhosis. 5. Apparent portal venous hypertension w ith small recanalized umbilical vein and mild splenomegaly in addition to the ascites. 6. Right-sided pleural effusion of moder ate to large size. 7. Anasarca. Please note that all CT scans at this [facility] use dose modulation, iterative reconstruction, and/or weight-based dosing when appropriate to reduce radiation dose to as low as reasonably achievable. Dictated by Silvestre Villegas MD @ 11/09/2021 11:42:49 AM (Electronically Signed) Mattie Burdick MD CT CT HEAD BRAIN WO (11/09/2021 10:05 AM CDT) Anatomical Region Laterality Modality HEAD, BRAIN Computed Tomography Specimen (Source) Anatomical Collection Method Collection Time Re ceived Time Location / / Volume Laterality 11/09/2021 10:18 AM CDT Narrative 11/09/2021 10:18 AM CDT For Patients: ??As a result of the Cures Act, medical imaging exams and procedure report s are released immediately into your [facility] medical record. ??You may view this report before your referring provider. ??If you have questions, please contact your health care provider. INDICATION: Mental status change. TECHNIQUE: Noncontrast CT images acquired through [facility] brain. COMPARISON: CT brain 12/11/2016. FINDINGS: The ventricles and sulci are within norm al limits for patient age. No mass effect or midline shift. The aguilar-white differentiation is maintained. No acute intracranial hemorrhage or path ologic extra-axial fluid collection. The globes are symmetric. The calvarium is intact. The paranasal sinuses and mastoid air cells are clear. Dental caries. IMPRESSION No acute intracranial hemorrhage or mass effect. No significant change compared to 12/11/2016. Please note that all CT scans at this [facility] use dose modulation, iterative reconstruction, and/or weight-based dosing when appropriate to reduce radiation dose to as low as reasonably achievable. Dictated by Conor Leon MD @ 10:18:10 AM (Electronically Signed) Procedure Note Conor Leon MD - 11/09/2021F ormatting of this note might be different from the original. For Patients: As a result of the ntury Cures Act, medical imaging exams and procedure reports are released immediately into your electronic medical record. You may view this report before your referring provider. If you have questions, please contact yo health care provider. INDICATION: Mental status change. TECHNIQUE: Noncontrast CT images acquired through t brain. COMPARISON: CT brain 12/11/2016. FINDINGS: The ventricles and sulci are within norm al limits for patient age. No mass effect or midline shift. The aguilar-white differentiation is maintained. No acute intracranial hemorrhage or path ologic extra-axial fluid collection. The globes are symmetric. The calvarium is intact. The paranasal sinuses and mastoid air cells are clear. Dental caries. IMPRESSION No acute intracranial hemorrhage or mass effect. No significant change compared to 12/11/2016. Please note that all CT scans at this [facility] use dose modulation, iterative reconstruction, and/or weight-based dosing when appropriate to reduce radiation dose to as low as reasonably achievable. Dictated by Conor Leon MD @ 10:18:10 AM (Electronically Signed) Dominick Hickey DO CT BLOOD CULTURE (11/09/2021 7:52 AM CDT)Only the most recent of2 resultswithin the time period is included. P athologist Signature CULTURE No Growth. 11/14/2021 [place] 3:[address] [facility] Specimen Anatomical Collection Method Collection Time Receive d Time (Source) Location / / Volume Laterality Blood BLOOD SPECIMEN / Butterfly / 11/09/2021 7:52 AM 11/09 7:55 Unknown Unknown CDT AM CDT Narrative [facility] - 3:10 PM CDT Low volume blood culture received; possi ble false negative culture. Dominick Hickey DO MICROBIOLOGY Performing Organization Address City/State/ZIP Code Phon e Number [facility] [address] [place] [address] (ABNORMAL) Drug Abuse Screen Rapid Urine Inhouse (11/09/2021 7:45 AM CDT) [facility] Method Time Signature THC Presumptive Not 11/09/2021 [place] METABOLITES,QU Positive-Uncon Detected 8:08 AM [facility] [place] firmed Result CENTER (A) LABORATORY PCP,QUAL Not Detected Not 11/09/2021 [place] Detected 8:08 AM [facility] COCAINE,QUAL Not Detected Not 11/09/2021 [place] Detected 8:08 AM [facility] METHAMPHETAMIN Not Detected Not 11/09/2021 [place] E, QUALITATIVE Detected 8:08 AM [facility] OPIATES,QUAL Not Detected Not 11/09/2021 [place] Detected 8:08 AM [facility] AMPHETAMINE, Not Detected Not 11/09/2021 [place] QUALITATIVE Detected 8:08 AM [facility] BENZODIAZEPINE Presumptive Not 11/09/2021 [place] S,QUAL Positive-Uncon Detected 8:08 AM [facility] barboured Result CENTER (A) LABORATORY TRICYCLICS,HONG Not Detected Not 11/09/2021 [place] L Detected 8:08 AM [facility] METHADONE, Not Detected Not 11/09/2021 [place] QUALITATIVE Detected 8:08 AM [facility] BARBITURATES,Q Not Detected Not 11/09/2021 [place] UAL Detected 8:08 AM [facility] OXYCODONE, Presumptive Not 11/09/2021 [place] QUALITATIVE Positive-Uncon Detected 8:08 AM [place] Result CENTER (A) LABORATORY BUPRENORPHINE, Not Detected Not 11/09/2021 [place] QUALITATIVE Detected 8:08 AM [facility] PROPOXYPHENE,Q Not Detected Not 11/09/2021 [place] UAL Detected 8:08 AM [facility] Specimen Anatomical Collection Method Collection Time Receive d Time (Source) Location / / Volume Laterality Urine URINE SPECIMEN / Non-Blood / 11/09/2021 7:45 AM 11/09 7:49 Unknown Unknown CDT AM CDT Narrative [facility] - 8:08 AM CDT Please Note: ?? This is a screening test only, all resul ts are Unconfirmed and should be used for medical purposes only . ??Unconfirmed results must not be used for non-medical purpose s (e.g., employment testing, legal testing). ??Suggest cortes te specific confirmation for all presumptive positive results. ?? Specimens will be held for 24 hours if additional testing is needed . ?? The following threshold concentrations a re used for this analysis: ? Drug ? Screening Threshold ? Buprenorphine ? 10 ng/mL PCP ? 25 ng/mL ?? THC Metabolites ? 50 ng/mL *Opiates ? 100 ng/mL Oxycodone ?100 ng/mL Cocaine ?150 ng/mL Benzodiazepines ?150 ng/mL ?? Methadone ?200 ng/mL ?? Barbiturates ? 200 ng/mL Propoxyphene ? 300 ng/mL Tricyclic Antidepressants ? 300 ng/mL ?? Amphetamines ? 500 ng/mL ?? Methamphetamines ? 500 ng/mL ?*Includes related compounds: ? Codeine ?50 ng/mL ? Heroin ?100 ng/mL ? Morphine ?100 ng/mL ? Hydrocodone ? 400 ng/mL ? Hydromorphone ? 800 ng/mL ?Venlafaxine (Effexor) is a known cr oss reactant in the PCP ?assay. ??If clinically indicated, order PCP confirmation. Dominick Hickey DO URINE Performing Organization Address City/State/ZIP Code Phon e Number [facility] [address] [place] [address] (ABNORMAL) URINALYSIS MICROSCOPIC (11/09/2021 7:45 AM CDT)Only the most recent of2 resultswithin the time period is included. [facility] gist Method Time Signature RBC None Seen 0-2, None 11/09/2021 [place] Seen /HPF 8:07 AM [facility] WBC 6-10 (A) 0-2, 3-5, 11/09/2021 [place] None Seen 8:07 AM [facility] /HPF LABORATORY BACTERIA Many (A) None 11/09/2021 [place] Seen, 8:07 AM [facility] Rare, Few LABORATORY Bacteria/ HPF EPITHELIAL None Seen None 11/09/2021 [place] CELLS Seen, Few 8:07 AM [facility] Epi/HPF LABORATORY RENAL Few Few 11/09/2021 [place] EPITHELIAL 8:07 AM [facility] CELLS LABORATORY Mucus Present 11/09/2021 [place] 8:07 AM [facility] HYALINE CASTS 6-10 (A) 0-2, 3-5 11/09/2021 [place] /LPF 8:[address] [facility] WBC CASTS 0-2 (A) (none) 11/09/2021 [place] /LPF 8:07 AM [facility] Specimen Anatomical Collection Method Collection Time Receive d Time (Source) Location / / Volume Laterality Urine URINE SPECIMEN / Non-Blood / 11/09/2021 7:45 AM 11/09 7:49 Unknown Unknown CDT AM CDT Dominick Bucio [facility] URINE Performing Organization Address City/[facility]/ZIP Code Phon e Number [facility] [address] [place] [address] Urine Culture (11/09/2021 7:45 AM CDT)Only the most recent of2 resultswithin the time period is included. athologist Signature CULTURE No growth 11/10/2021 [facility] (<1,000 6:53 AM CDT LABORATORY-CENT CFU/mL) [facility] Specimen Anatomical Collection Method Collection Time Receive d Time (Source) Location / / Volume Laterality Urine URINE SPECIMEN / Non-Blood / 11/09/2021 7:45 AM 11/09 7:49 Unknown Unknown CDT AM CDT Dominick Bucio [facility] MICROBIOLOGY Performing Organization Address City/[facility]/ZIP Code Phon e Number [facility] [address] [place] [address] LABORATORY-CENTRAL [address] LABORATORY (ABNORMAL) Urinalysis W Reflex Microscopic if Positive (11/09/2021 7:45 AM CDT) Only the most recent of2 resultswithin the time period is included. [facility] gist Method Time Signature COLOR Yellow Yellow Color 11/09/2021 [place] 8:00 AM [facility] CLARITY Slightly Clear 11/09/2021 [facility] Cloudy (A) Clarity 8:00 AM [facility] LAB[facility]ATORY SPECIFIC 1.010 1.010, 11/09/2021 [place] GRAVITY,URINE 1.015, 8:00 AM CDT MEDICAL 1.020, 1.025 CENTER LABORATORY PH,URINE 5.5 6.0, 7.0, 11/09/2021 [place] 8.0, 5.5, 8:00 AM CDT MEDICAL 6.5, 7.5, CENTER 8.5 LABORATORY UROBILINOGEN, Increased (A) Normal EU/dl 11/[facility]/2021 [facility] AM [facility] LAB[facility]ATORY PROTEIN, Trace (A) Negative 11/09/2021 [place] URINE mg/dL 8:00 AM [facility] LABORATORY GLUCOSE, Negative Negative 11/09/2021 [place] URINE mg/dL 8:00 AM [facility] LAB[facility]ORY KETONES,URINE Trace (A) Negative 11/09/2021 [facility] mg/dL 8:00 AM [facility]ORY BILIRUBIN,URI Abnormal (A) Negative 11/09/2021 [place] NE 8:00 AM [facility] Comment: A variety of metabolites and/or medications may result in a positive bilirubin result. Clinical correlation i s recommended. OCCULT BLOOD,URINE Negative Negative 11/09/2021 8:00 AM [facility] NITRITE Positive (A) Negative 11/09/2021 8:00 AM [facility] LABOR[facility]ORY LEUKOCYTE ESTERASE Negative Negative 11/09/2021 8:00 AM [facility] Specimen Anatomical Collection Method Collection Time Receive d Time (Source) Location / / Volume Laterality Urine URINE SPECIMEN / Non-Blood / 11/09/2021 7:45 AM 11/09 7:49 Unknown Unknown [facility] Dominick Hickey DO URINE Performing Organization Address City/State/ZIP Code Phon e Number [facility] [address] [place] [address] (ABNORMAL) CBC WITH AUTO DIFFERENTIAL (11/09/2021 7:34 AM CDT)Only the most recent of2 resultswithin the time period is included. [facility] Method Time Signature WHITE BLOOD 12.8 (H) 4.5 - 11/09/2021 [facility] COUNT 11.0 8:16 AM [facility] thou/cu LABORATORY mm RED BLOOD COUNT 2.23 (L) 4.00 - 11/09/2021 [facility] 5.20 8:16 AM [facility] mil/cu mm LABORATORY HEMOGLOBIN 8.2 (L) 12.0 - 11/09/2021 [place] 16.0 g/dL 8:16 AM [facility] LABORATORY HEMATOCRIT 24.4 (L) 33.0 - 11/09/2021 [place] 51.0 % 8:16 AM [facility] LABORATORY MCV 109 (H) 80 - 100 11/09/2021 [place] fL 8:16 AM [facility] LABORATORY MCH 36.8 (H) 26.0 - 11/09/2021 [place] 34.0 pg 8:16 AM [facility] LABORATORY MCHC 33.6 32.0 - 11/09/2021 [place] 36.0 g/dL 8:16 AM [facility] LABORATORY RDW 14.9 11.5 - 11/09/2021 [place] 15.5 % 8:16 AM [facility] LABORATORY PLATELET COUNT 73 (L) 140 - 440 11/09/2021 [place] thou/cu 8:16 AM [facility] mm LABORATORY MPV 9.2 6.5 - 11/09/2021 [place] 11.0 fL 8:16 AM [facility] LABORATORY NEUTROPHILS 82.7 % 11/09/2021 [place] 8:16 AM [facility] LABORATORY LYMPHOCYTES 7.4 % 11/09/2021 [place] 8:16 AM [facility] LABORATORY MONOCYTES 9.3 % 11/09/2021 [place] 8:16 AM [facility] LABORATORY EOSINOPHILS 0.4 % 11/09/2021 [place] 8:16 AM [facility] LABORATORY BASOPHILS 0.2 % 11/09/2021 [place] 8:16 AM [facility] LABORATORY ABSOLUTE 10.5 (H) 1.7 - 7.0 11/09/2021 [place] NEUTROPHILS thou/cu 8:16 AM [facility] mm LABORATORY ABSOLUTE 1.0 0.9 - 2.9 11/09/2021 [place] LYMPHOCYTES thou/cu 8:16 AM [facility] mm LABORATORY ABSOLUTE 1.2 (H) <0.9 11/09/2021 [place] MONOCYTES thou/cu 8:16 AM [facility] mm LABORATORY ABSOLUTE 0.1 <0.5 11/09/2021 [place] EOSINOPHILS thou/cu 8:16 AM [facility] mm LABORATORY ABSOLUTE 0.0 <0.3 11/09/2021 [place] BASOPHILS thou/cu 8:16 AM CDT MEDICAL CENTER mm LABORATORY Specimen Anatomical Collection Method Collection Time Receive d Time (Source) Location / / Volume Laterality Blood BLOOD SPECIMEN / Butterfly / 11/09/2021 7:34 AM 11/09 7:39 Unknown Unknown CDT AM CDT Doimnick Bucio Ruperto HAQ HEMATOLOGY Performing Organization Address City/[facility]/ZIP Code Phon e Number [facility] [address] [place] [address] TYPE AND SCREEN ONLY (11/09/2021 7:34 AM CDT) Patholo gist Method Time Signature ABORH B Rh 11/09/2021 [place] Positive 8:[address] [facility] BLOOD BANK ANTIBODY Negative Negative 11/09/2021 [place] SCREEN 8:[address] [facility] BLOOD BANK SPECIMEN 11/12/21 11/09/2021 [facility]:59 8:27 AM CDT MEDICAL DATE/TIME CENTER LABORATORY BLOOD BANK Specimen Anatomical Collection Method Collection Time Receive d Time (Source) Location / / Volume Laterality Blood BLOOD SPECIMEN / Butterfly / 11/09/2021 7:34 AM 11/09 7:40 Unknown Unknown CDT AM CDT Dominick Hickey DO BLOOD BANK Performing Organization Address City/[facility]/ZIP Code Phon e Number [facility] [address] [place] [address] BLOOD BANK HCG Beta Quant, (11/09/2021 7:34 AM CDT) P athologist Signature HCG BETA <1 mIU/mL 11/09/2021 [facility] QUANT,PREGNANC 8:20 AM CDT [facility] LABORATORY Specimen Anatomical Collection Method Collection Time Receive d Time (Source) Location / / Volume Laterality Blood BLOOD SPECIMEN / Butterfly / 11/09/2021 7:34 AM 11/09 7:39 Unknown Unknown CDT AM CDT Narrative [facility] - 8:20 AM CDT Expected Value for Healthy Non- premenopausal women <5mIU/mL ? FOR GESTATIONAL ASSESSMENT-See Range Table Below ? Weeks Post LMP ?Approximate HCG Range: ? (Last Menstrual Period) ?3-4 ?? Weeks ? (9-130) ?4-5 ?? Weeks ? (75-2600) ?5-6 ?? Weeks ? ([phone]) ?6-7 ?? Weeks ? ([phone]) ?7-12 ??Weeks ? ([id number]) ?12-16 Weeks ? ([id number]) ?16-29 Weeks ? ([phone]) ?29-41 Weeks ? ([phone]) Dominick Hickey DO CHEMISTRY Performing Organization Address City/State/ZIP Code Phon e Number [facility] [address] [place] [address] (ABNORMAL) BLOOD GAS,VENOUS (11/09/2021 7:34 AM CDT) [facility] Method Time Signature PH, VENOUS 7.42 7.32 - 7.43 11/09/2021 [place] 7:[address] [facility] PCO2, VENOUS 29 (L) 41 - 51 11/09/2021 [place] mmHg 7:45 AM [facility]ORY PO2, VENOUS 101 (H) 35 - 40 11/09/2021 [place] mmHg 7:45 AM [facility]ORY HCO3,VENOUS 19 (L) 22 - 29 11/09/2021 [place] mmol/L 7:45 AM [facility] BASE EXCESS, -4.4 (L) -2.0 - 3.0 11/09/2021 [facility] VENOUS, POCT 7:45 AM [facility]ORY O2 SATURATION, >100 (H) 70 - 75 % 11/09/2021 [facility] VENOUS 7:45 AM [facility]ORY PATIENT 37.0 Degrees C 11/09/2021 [place] TEMPERATURE 7:45 AM [facility] Specimen Anatomical Collection Method Collection Time Receive d Time (Source) Location / / Volume Laterality Blood VENOUS BLOOD Butterfly / 11/09/2021 7:34 AM 7:40 SPECIMEN / Unknown Unknown CDT AM CDT Dominick Izquierdo [facility] CHEMISTRY Performing Organization Address City/[facility]/ZIP Code Phon e Number [facility] [address] [place] [address] Ethanol Serum or Plasma (11/09/2021 7:34 AM CDT)Only the most recent of2 results within the time period is included. P athologist Signature ETHANOL <0.010 <0.010 g/dL 11/09/2021 [place] 8:10 AM [facility] Specimen Anatomical Collection Method Collection Time Receive d Time (Source) Location / / Volume Laterality Blood BLOOD SPECIMEN / Butterfly / 11/09/2021 7:34 AM 11/09 7:39 Unknown Unknown CDT AM CDT Dominick Corevalus Systemsnorth[facility]ad[facility] CHEMISTRY Performing Organization Address City/[facility]/ZIP [facility] Phon e Number [facility] [address] [place] [address] (ABNORMAL) C-REACTIVE PROTEIN (11/09/2021 7:34 AM CDT) Analysis Performed At Patho logist Time Signature C-REACTIVE 0.84 (H) <0.50 11/09/2021 [place] PROTEIN mg/dL 8:[address] [facility] Specimen Anatomical Collection Method Collection Time Receive d Time (Source) Location / / Volume Laterality Blood BLOOD SPECIMEN / Butterfly / 11/09/2021 7:34 AM 11/09 7:39 Unknown Unknown CDT AM CDT Dominick Uriarteshanel Hickey DO CHEMISTRY Performing Organization Address [facility] Phon e Number [facility] [address] [place] [address] (ABNORMAL) APTT (11/09/2021 7:34 AM CDT) P athologist Signature APTT 59 (H) 25 - 36 sec 11/09/2021 [facility] [facility] Specimen Anatomical Collection Method Collection Time Receive d Time (Source) Location / / Volume Laterality Blood BLOOD SPECIMEN / Butterfly / 11/09/2021 7:34 AM 11/09 7:40 Unknown Unknown CDT AM CDT [facility] LABORATORY - 7:50 AM CDT Therapeutic Range: 76-99 seconds Dominick Hickey DO HEMATOLOGY Performing Organization Address City/[facility] Code Phon e Number [facility] [address] [place] [address] (ABNORMAL) Protime - INR (11/09/2021 7:34 AM CDT)Only the most recent of2 resultswithin the time period is included. P athologist Signature INR 3.4 (H) <1.3 11/09/2021 [facility] 7[facility] [facility] PROTIME 33.3 (H) 11.8 - 13.9 11/09/2021 [facility] sec 7:49 AM T [facility] Specimen Anatomical Collection Method Collection Time Receive d Time (Source) Location / / Volume Laterality Blood BLOOD SPECIMEN / Butterfly / 11/09/2021 7:34 AM 11/09 7:40 Unknown Unknown CDT AM CDT [facility] LABORATORY - 7:49 AM CDT ?Therapeutic Range 2.0-3.0 for most anticoagulated patients 2.5-3.5 or 4.0 for high risk patients The INR is only used for patients on sta ble oral anticoagulant therapy. It makes no significant contribution to the diagnosis or treatment of patients whose Protime is prolonged f or other reasons. INR results are increased when heparin l evels exceed 1.0 U/mL, which corresponds to an aPTT >125 seconds if the patient is on UFH. Dominick Hickey DO HEMATOLOGY Performing Organization Address [facility] Phon e Number [facility] [address] [place] [address] Magnesium (11/09/2021 7:34 AM CDT)Only the most recent of2 resultswithin the time period is included. athologist Signature MAGNESIUM 1.7 1.6 - 2.6 11/09/2021 [place] mg/dL 8:[address] [facility] Specimen Anatomical Collection Method Collection Time Receive d Time (Source) Location / / Volume Laterality Blood BLOOD SPECIMEN / Butterfly / 11/09/2021 7:34 AM 11/09 7:39 Unknown Unknown CDT AM CDT Dominick Hickey DO CHEMISTRY Performing Organization Address [facility] Phon e Number [facility] [address] [place] [address] (ABNORMAL) Lipase (11/09/2021 7:34 AM CDT) athologist Signature LIPASE <5.0 (L) 8.0 - 78.0 11/09/2021 [place] IU/L 9:[address] [facility] Specimen Anatomical Collection Method Collection Time Receive d Time (Source) Location / / Volume Laterality Blood BLOOD SPECIMEN / Butterfly / 11/09/2021 7:34 AM 11/09 7:39 Unknown Unknown CDT AM CDT Dominick Hickey DO CHEMISTRY Performing Organization Address City/[facility] Phon e Number [facility] [address] [place] [address] (ABNORMAL) AMMONIA (11/09/2021 7:34 AM CDT) athologist Signature AMMONIA 174 (HH) 11 - 35 11/09/2021 [place] umol/L 8:11 AM T [facility] LAB[facility] Comment: 1. ??Sulfasalazine and its metabolite Donohue lfapyridine at therapeutic concentrations may lead to falsely low results. 2. ??Temozolomide and its metabolite MTI C may lead to falsely elevated results, and its metabolite AIC may lead to falsely low results. Specimen Anatomical Collection Method Collection Time Receive d Time (Source) Location / / Volume Laterality Blood BLOOD SPECIMEN / Butterfly / 11/09/2021 7:34 AM 11/09 7:39 Unknown Unknown CDT AM CDT [facility] CHEMISTRY Performing Organization Address City/[facility]/ZIP [facility] Phon e Number [facility] [address] [place] [address] Salicylate (11/09/2021 7:34 AM CDT) athologist Signature SALICYLATE <10.0 15.0 - 30.0 11/09/2021 [place] mg/dL 8:14 AM [facility] LABORATORY Specimen Anatomical Collection Method Collection Time Receive d Time (Source) Location / / Volume Laterality Blood BLOOD SPECIMEN / Butterfly / 11/09/2021 7:34 AM 11/09 7:39 Unknown Unknown CDT AM CDT [facility] CHEMISTRY Performing Organization Address City/[facility]/ZIP [facility] Phon e Number [facility] [address] [place] [address] (ABNORMAL) Complete Metabolic Panel (11/09/2021 7:34 AM CDT)Only the most recent of2 resultswithin the time period is included. [facility] gist Method Time Signature SODIUM 129 (L) 135 - 145 11/09/2021 [place] mmol/L 8:14 AM T [facility] LABORATORY POTASSIUM 4.9 3.5 - 5.0 11/09/2021 [place] mmol/L 8:14 AM T [facility] LABORATORY CHLORIDE 100 98 - 110 11/09/2021 [place] mmol/L 8:14 AM CDT MEDICAL CENTER LABORATORY CO2,TOTAL 17 (L) 21 - 31 11/09/2021 [place] mmol/L 8:14 AM [facility] LABORATORY ANION GAP 12 5 - 18 11/09/2021 [place] 8:14 AM [facility] LABORATORY GLUCOSE 107 (H) 65 - 100 11/09/2021 [place] mg/dL 8:14 AM [facility] LABORATORY CALCIUM 8.4 (L) 8.5 - 11/09/2021 [place] 10.5 8:14 AM [facility] mg/dL LABORATORY BUN 25 8 - 25 11/09/2021 [place] mg/dL 8:14 AM [facility] LABORATORY CREATININE 2.03 (H) 0.57 - 11/09/2021 [place] 1.11 8:14 AM [facility] mg/dL LABORATORY BUN/CREAT RATIO 12 10 - 20 11/09/2021 [place] 8:14 AM [facility] LABORATORY ALBUMIN 2.4 (L) 3.5 - 5.2 11/09/2021 [place] g/dL 8:14 AM [facility] LABORATORY PROTEIN,TOTAL 5.1 (L) 6.0 - 8.0 11/09/2021 [place] g/dL 8:14 AM [facility] GLOBULIN 2.7 2.0 - 3.7 11/09/2021 [place] g/dL 8:14 AM [facility] LABORATORY A/G RATIO 0.9 (L) 1.0 - 2.0 11/09/2021 [place] 8:14 AM [facility] LAB[facility]ORY BILIRUBIN,TOTAL 16.8 (H) 0.2 - 1.2 11/09/2021 [place] mg/dL 8:14 AM [facility] ALK PHOSPHATASE 200 (H) 50 - 136 11/09/2021 [place] IU/L 8:14 AM [facility] ALT (SGPT) 21 8 - 45 11/09/2021 [place] IU/L 8:14 AM [facility] AST (SGOT) 43 (H) 2 - 40 11/09/2021 [place] IU/L 8:14 AM [facility] eGFR 33 (L) >90 11/09/2021 [place] mL/min/1. 8:[address] [facility] 73m2 LABORATORY Comment: As of 2021, eGFR is calcu lated by the CKD-EPI creatinine equation without race adjustment. eGFR can be inf luenced by muscle mass, exercise, and diet. The reported eGFR is an estimation only and is only applicable if the renal function is stable. Specimen Anatomical Collection Method Collection Time Receive d Time (Source) Location / / Volume Laterality Blood BLOOD SPECIMEN / Butterfly / 11/09/2021 7:34 AM 11/09 7:39 Unknown Unknown CDT AM CDT Dominick Hickey DO CHEMISTRY Performing Organization Address [facility] Phon e Number [facility] [address] [place] [address] EKG 12 Lead (11/09/2021 7:21 AM CDT) Patholo gist Method Time Signature Interpretation Normal sinus rhythm BEYON D NOW Normal ECG No previous ECGs available Ventricular Rate 89 BPM BEYOND NOW Atrial Rate 89 BPM BEYOND NOW P-R Interval 120 ms BEYOND NOW QRS Duration 90 ms BEYOND NOW QT 418 ms BEYOND NOW QTc 508 ms BEYOND NOW P [place] 58 degrees BEYOND NOW R [place] 82 degrees BEYOND NOW T [place] 62 degrees BEYOND NOW Specimen Anatomical Collection Method Collection Time Receive d Time (Source) Location / / Volume Laterality 11/09/2021 7:21 AM 7:45 CDT AM CDT Dominick Hickey DO EKG ORD Performing Organization Address City/[facility] Code Phon e Number BEYOND NOW [place], [place] URINE (10/25/2021 7:43 AM CDT) Analysis Performed At Patho logist Time Signature ,URIN Negative Negative 10/25/2021 [place] E 8:25 AM CDT [facility] Specimen Anatomical Collection Method Collection Time Receive d Time (Source) Location / / Volume Laterality Urine URINE SPECIMEN / Non-Blood / 10/25/2021 7:43 AM 10/25 8:13 Unknown Unknown CDT AM CDT Edil Lo MD URINE Performing Organization Address City/[facility]/ZIP Code Phon e Number [facility] [address] [place] [address] CT ABDOMEN PELVIS STONE PROTOCOL WO (10/25/2021 7:41 AM CDT) Anatomical Region Laterality Modality Abdomen, Pelvis, AORTA, LIVER, SPLEEN Co mputed Tomography Specimen (Source) Anatomical Collection Method Collection Time Re ceived Time Location / / Volume Laterality 10/25/2021 8:24 AM CDT Impressions 10/25/2021 8:24 AM CDT 1. Diffusely low density and heterogeneo us appearance of the liver. Appearance is consistent with hepatocellular dysfunction. No definite contour nodularity. Mild splenomegaly and moderate to large volu me of ascites are suggestive of portal h ypertension. 2. Moderate right pleural effusion with passive atelectasis of the right lower lobe. 3. Gallbladder is distended with multipl e stones layering dependently within the gallbladder lumen. Evaluation for acute cholecystitis is difficult due to surrounding ascites. 4. Calcifications in the pancreatic pare nchyma, suggestive of chronic pancreatitis. Please note that all CT scans at this [facility] use dose modulation, iterative reconstruction, and/or weight-based dosing when appropriate to reduce radiation dose to as low as reasonably achievable. Dictated by Daniel Welch MD @ 10/25 8:24:47 AM (Electronically Signed) Narrative 10/25/2021 8:24 AM CDT For Patients: ??As a result of the Century Cures Act, medical imaging exams and procedure report s are released immediately into your [facility] medical record. ??You may view this report before your referring provider. ??If you have questions, please contact your health care provider. CLINICAL INFORMATION: Flank pain, liver failure. TECHNIQUE: CT of the abdomen and pelvis was obtaine d without administration of intravenous contrast. Coronal and sagittal reformatted images were generated. Contrast: None. COMPARISON: MR abdomen January 23, 2021.. FINDINGS: Lower Chest: Lung bases: Moderate right pleural effus ion with passive atelectasis of the right lower lobe. Heart/Pericardium: Unremarkable. ? Abdomen/Pelvis: Liver: Liver is diffusely low and hetero geneous in attenuation. No definite contour nodularity. No suspicious hepatic mass. No intrahepatic or extrahepatic biliary duct dilatation. Gallbladder: Distended with multiple sto tom layering dependently within the gallbladder lumen. Spleen: Mild splenomegaly. Adrenal glands: No focal adrenal lesion. Pancreas: No focal pancreatic lesion or main duct dilatation. Calcifications in the pancreatic parenchyma are suggestive of chronic pancreatitis. Kidneys: Symmetric in size. No suspiciou s renal lesion. No nephrolithiasis. No hydronephrosis. Urinary bladder: Limited evaluation due to underdistention. No focal wall thickening. Vascular: Abdominal aorta is normal in c aliber. Likely splenic and gastric varices, though that lesion is limited in the absence of intravenous contrast. Bowel: Bowel is normal in caliber withou t evidence of obstruction. No focal bowel wall thickening. Lymph nodes: No lymphadenopathy is appre ciated, though evaluation is markedly limited in the absence of intravenous contrast given volume of abdominal ascites. Reproductive structures: IUD in place. Soft tissues/Peritoneum: Moderate large volume ascites. No pneumoperitoneum. Bones: No acute fracture or aggressive a ppearing osseous lesion. Procedure Note Daniel Welch MD - 2 For Patients: As a result of the ntury Cures Act, medical imaging exams and procedure reports are released immediately into your electronic medical record. You may view this report before your referring provider. If you have questions, please contact [facility] care provider. CLINICAL INFORMATION: Flank pain, liver failure. TECHNIQUE: CT of the abdomen and pelvis was obtaine d without administration of intravenous contrast. Coronal and sagittal reformatted images were generated. Contrast: None. COMPARISON: MR abdomen January 23, 2021.. FINDINGS: Lower Chest: Lung bases: Moderate right pleural effus ion with passive atelectasis of the right lower lobe. Heart/Pericardium: Unremarkable. Abdomen/Pelvis: Liver: Liver is diffusely low and hetero geneous in attenuation. No definite contour nodularity. No suspicious hepatic mass. No intrahepatic or extrahepatic biliary duct dilatation. Gallbladder: Distended with multiple sto tom layering dependently within the gallbladder lumen. Spleen: Mild splenomegaly. Adrenal glands: No focal adrenal lesion. Pancreas: No focal pancreatic lesion or main duct dilatation. Calcifications in the pancreatic parenchyma are suggestive of chronic pancreatitis. Kidneys: Symmetric in size. No suspiciou s renal lesion. No nephrolithiasis. No hydronephrosis. Urinary bladder: Limited evaluation due to underdistention. No focal wall thickening. Vascular: Abdominal aorta is normal in c aliber. Likely splenic and gastric varices, though that lesion is limited in the absence of intravenous contrast. Bowel: Bowel is normal in caliber withou t evidence of obstruction. No focal bowel wall thickening. Lymph nodes: No lymphadenopathy is appre ciated, though evaluation is markedly limited in the absence of intravenous contrast given volume of abdominal ascites. Reproductive structures: IUD in place. Soft tissues/Peritoneum: Moderate large volume ascites. No pneumoperitoneum. Bones: No acute fracture or aggressive a ppearing osseous lesion. IMPRESSION: 1. Diffusely low density and heterogeneo us appearance of the liver. Appearance is consistent with hepatocellular dysfunction. No definite contour nodularity. Mild splenomegaly and moderate to large volume of ascites are suggestive of portal hyperte nsion. 2. Moderate right pleural effusion with passive atelectasis of the right lower lobe. 3. Gallbladder is distended with multipl e stones layering dependently within the gallbladder lumen. Evaluation for acute cholecystitis is difficult due to surrounding ascites. 4. Calcifications in the pancreatic pare nchyma, suggestive of chronic pancreatitis. Please note that all CT scans at this [facility] use dose modulation, iterative reconstruction, and/or weight-based dosing when appropriate to reduce radiation dose to as low as reasonably achievable. Dictated by Daniel Welch MD @ 10/25 8:24:47 AM (Electronically Signed) Edil Lo MD CT (ABNORMAL) RED CELL MORPHOLOGY (10/25/2021 7:18 AM CDT) [facility] Method Time Signature ACANTHOCYTES Moderate [facility] POLYCHROMASIA Slight 10/25/2021 [place] 7:50 AM [facility] SCHISTOCYTES Few 10/25/2021 [place] 7:50 AM [facility] RBC COMMENT Present (A) RBC 10/25/20[facility] 7:50 AM [facility] normal, RBC LABORATORY morphology within normal limits for newborns. Specimen Anatomical Collection Method Collection Time Receive d Time (Source) Location / / Volume Laterality Blood BLOOD SPECIMEN / [place]fly / 10/25/2021 7:18 AM 10/25 7:23 Unknown Unknown CDT AM CDT Edil Lo MD HEMATOLOGY Performing Organization Address City/State/ZIP Code Phon e Number [facility] [address] [place] [address] (ABNORMAL) PLATELET ESTIMATE (10/25/2021 7:18 AM CDT) Patholo gist Method Time Signature PLATELET Decreased (A) Adequate, No 10/25/2021 [place] ESTIMATE estimate 7:[address] [facility] Specimen Anatomical Collection Method Collection Time Receive d Time (Source) Location / / Volume Laterality Blood BLOOD SPECIMEN / [place] / 10/25/2021 7:18 AM 10/25 7:23 Unknown Unknown CDT AM CDT Edil Lo MD HEMATOLOGY Performing Organization Address City/[facility]/ZIP Code Phon e Number [facility] [address] [place] [address] CK TOTAL (10/25/2021 7:18 AM CDT) P athologist Signature CK,TOTAL 43 29 - 168 10/25/2021 [place] IU/L 9:[address] [facility] Specimen Anatomical Collection Method Collection Time Receive d Time (Source) Location / / Volume Laterality Blood BLOOD SPECIMEN / [place] / 10/25/2021 7:18 AM 10/25 7:22 Unknown Unknown CDT AM CDT Mattie Burdick MD CHEMISTRY Performing Organization Address City/State/ZIP Code Phon e Number [facility] [address] [place] [address] from Last 3 Months Insurance Payer Benefit Plan / Subscriber ID Effective Dates Phone Addre ss Type Group [employer] [place] [employer] [id number] 2018-Present [address] [address] [place] [address] MEDICAID [place] MEDICAID [id number] 2015-Presen [address] [address] [place] [address] Catia Carias Personal/Famil Self 1990 AP T 3 y (Home) [id number] [place] [place] [id number] Catia Carias Motor Vehicle Self 1990 [address] ([address]) [place] [id number] Advance Directives Latest Code Status on File Code Status Date Activated Date Inactivated Comments Full Code 08/26/2021 1:03 PM 08/27/2021 2:31 PM Code Status Discussion: Reviewed Preferences Full Code 01/30/2021 5:11 PM 01/31/2021 6:49 PM Code Status Discussion: Not Discussed Full Code 01/23/2021 2:38 AM 01/26/2021 5:14 PM Code Status Discussion: Not Discussed Per Existing Order Full Code 11/07/2019 12:37 AM 11/08/2019 9:50 PM Full Code 04/14/2019 1:52 PM 04/17/2019 2:42 PM Care Teams Headlight Assembler Relationship Specialty Start Date End Date Ervin Schroeder MD PCP - General Family Practice 11/09/211999 [place] [address]
--- OUTSIDE RECORDS SUMMARY | 2021-12-28 23:36 | XMS_ITS | Encounter Summary ---
:1990 Author Organization [facility] Address [address] [place] [address] Phone Care Team Providers Name Role Phone Unavailable Primary Care Provider Unavailable Reason for Visit Reason Comments Abdominal Pain Encounter Details Date Type Department Care Team Description 07/08/2021 Emergency [facility] [place] Daniel Doe, Ascites due to Department alcoholic hepatitis [address] [facility] [id number] [place], [place] [phone] (Wo rk) Social History Tobacco Use Types Packs/Day Years Used Date Smoking Tobacco: Never Assessed Sex Assigned at Date Recorded Not on file COVID-19 Exposure Response Date Recorded In the last 10 days, have you been in contact with No / Unsu re 07/08/2021 9:38 AM TABLEAU REPORT DEVELOPER someone who was confirmed or suspected to have Coronavirus/COVID-19? documented as of this encounter Last Filed Vital Signs Vital Sign Reading Time Taken Comments Blood Pressure 114/67 07/08/2021 4:03 PM TABLEAU REPORT DEVELOPER Pulse 82 07/08/2021 4:03 PM TABLEAU REPORT DEVELOPER Temperature 36.9 ??C (98.5 ??F) 07/08/2021 6:31 AM TABLEAU REPORT DEVELOPER Respiratory Rate 16 07/08/2021 4:03 PM TABLEAU REPORT DEVELOPER Oxygen Saturation 98% 07/08/2021 4:03 PM TABLEAU REPORT DEVELOPER Inhaled Oxygen Concentration - - Weight - - Height - - Body Mass Index - - documented in this encounter Discharge Instructions Discharge InstructionsJarek Lindsay MD - 07/08/2021 4:58 PM CST You have been treated today for abdominal pain. As we discussed: You have been given a dose of antibiotics to treat possible infection of the fluid in your belly. At this time, you do not need to be admitted to the hospital. I am discharging you home with a small amount of pain medicine until you can be seen by your regulardoctor. Please go to your scheduled appointment tomorrow to talk about pain medicine and sleep problems. Return to the emergency department with any new, worsening or concerning symptoms It was a pleasure caring for you today! EAU REPORT DEVELOPER AttachmentsThe following attachments cannot be sent through Care Everywhere. Fluid in the Belly (Ascites) Discharge Instructions (Afghan)documented in this encounter Medications at Time of Discharge Medication Sig Dispensed Refills Start Date End Date folic acid (FOLIC ACID) 1 Take 1 mg by mouth 0 mg oral TABS daily. magnesium oxide (MAG-OX) Take 400 mg by 0 400 MG oral TABS mouth twice daily. thiamine (VITAMIN B1) 100 Take 100 mg by 0 mg oral TABS mouth daily. spironolactone (ALDACTONE) Take 50 mg by 0 50 mg oral tablet mouth daily. pantoprazole (PROTONIX) 40 Take 40 mg by 0 mg oral tablet mouth daily. furosemide (LASIX) 20 mg Take by mouth 0 oral TABS daily. rifAXIMin (XIFAXAN) 550 mg Take 550 mg by 0 oral tablet mouth twice daily. GABApentin (NEURONTIN) 300 Take 600 mg by 0 mg oral capsule mouth 3 times daily. ERGOcalciferol (VITAMIN D) Take 50,000 UNITS 0 50,000 UNITS oral capsule by mouth every week. ciprofloxacin (CIPRO) 500 Take 500 mg by 0 mg oral TABS mouth daily. lactulose (CONSTULOSE) 10 Take 45 mL by 0 01/31/ 021 g/15 mL oral solution mouth 3 times daily. oxyCODONE (ROXICODONE) 5 mg Take 2.5-5 mg by 0 oral tablet mouth twice daily as needed. traMADol (ULTRAM) 50 mg Take 50 mg by 0 2 oral TABS mouth every 6 hours as needed. oxyCODONE (ROXICODONE) 5 mg Take 1 tablet (5 10 tablet 0 07/11/2021 oral tablet mg) by mouth every 6 hours as needed for Pain. documented as of this encounter Consult Notes Ervin Childs MD - 07/08/2021 4:19 PM CST MEDICINE CONSULT ?? Catia Carias : 1990 Sex: female ?? Patient Summary: Catia Carias is a 30 y.o. female with past medical history of alcoholic cirrhosis who was transferred [place] [facility] [place] on 07/08/21 from [facility] with pain and altered mental status. ?? Assessment and Plan: Alerted mental status, resolved Chronic leg pain from neuropathy Acute lower abdominal pain Alcoholic cirrhosis Insomnia Chronic anemia Chronic thrombocytopenia: Initially altered mental status likely either from sleep deprivation or from the new medications she was recently given (amiben and trazodone). Not acutely encephalopathic when I talked to her. No asterixis. Ammonia level is elevated but she clinically does not have hepatic en cephalopathy. She is prescribed lactulose which she takes. She was describes intermittent mild lowerabdominal pain which has been going on for about one day but she's mostly worried about the insomniaand leg pain. She does take cipro for SBP prophylaxis. Lipase normal. Normal WBC. Abdominal exam unremarkable. urinalysis unremarkable. Abdominal US unremarkable. ?? No clear reasons for admission at this time and patient would prefer to go home which is reasonable.Will provider her with bridge prescription for oxycodone. She is on oxycodone chronically - 2.5-5 mgBID PRN. This is prescribed by her primary care doctor who has known her for many years. FUNCTIONAL TESTER shows that she most recently filled this on 06/19/21. Patient would also strongly prefer that we prescribe her something for insomnia (something other than melatonin). Do not plan on prescribing pharmacotherapyfor insomnia at this time consider recent altered mental status and complexity of her medical history. Recommended she discuss this further with her PCP and/or patient access director. ?? Ervin Childs MD, 07/08/2021 4:19 PM History of Present Illness: Patient has been having significant insomnia lately. She was seen for this two different outside emergency departments on 07/06 and 07/07. On 07/06 she was given one dose of ambien. This didn't work very well so she returned to the ED on 07/07 and was given one dose of trazodone. Patient then stayed at her mom's house which she doesn't usually do. She usually lives in [facility] with her boyfriend. Patient stated her mom thought she was acting goofy and called EMS. She was brought to outside ED. ?? Patient now saying she wants to go home. Can get a ride home from her mom or boyfriend. She does have chronic leg pain which she says is from neuropathy. She was describes intermittent mild lower abdominal pain which has been going on for about one day but she's mostly worried about the insomnia and leg pain. No dysuria. No vaginal symptoms. No diarrhea. No fever. She is on oxycodone chronically - 2.5-5 mg BID PRN. This is prescribed by her primary care doctor who has known her for many years. FUNCTIONAL TESTER shows that she most recently filled this on 06/19/21. ?? Medical/Surgical History: Past Medical History Past Medical History: Diagnosis Date ??? Anemia ? Ascites ? Chronic pancreatitis () ? Cirrhosis of liver () ? CKD (chronic kidney disease) ? 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 Generalized anxiety disorder ? GERD (gastroesophageal reflux disease) ? Hepatic encephalopathy () ? Hypokalemia ? Insomnia ? Neuropathy ? Pyelonephritis ?? Past Surgical History No past surgical history on file. Psychosocial History: Lives with her boyfriend in [place], [place]. Denies alcohol use. Denies illicit drug use. Uses marijuana. ?? Family History: Medical History Relation Name Comments Good Health Brother 2 Ricardo ?? Hyperlipidemia Father Roscoe ?? Arthritis Maternal Grandfather ? Cancer-prostate Maternal Grandfather ? Hyperlipidemia Maternal Grandfather ? Hypertension Maternal Grandfather ? Arthritis Maternal Grandmother ? Hyperlipidemia Maternal Grandmother ? Thyroid Disease Maternal Uncle ? Allergies Mother Parris seasonal Good Health Mother Parris ?? Good Health Sister 2 Adina ? Family History Relation Name Status Comments Brother 1 ?? Alive x2 Brother 2 Ricardo ? Father Roscoe Alive ?? Maternal Grandfather ?? Alive ?? Maternal Grandmother ?? Alive ?? Maternal Uncle ? Mother Parris Alive ?? Paternal Grandfather ?? Alive ?? Paternal Grandmother ?? Alive ?? Sister 1 ?? Alive x2 Sister 2 Adina ? Medications: Medication Sig Dispensed Refills Start Date End Date Status spironolactone (ALDACTONE) 50 mg tablet?? Take 1 tablet (50 mg total) by mouth daily. 30 tablet?? 1 03/24/2021 ?? Active furosemide (LASIX) 20 mg tablet?? Take 1 tablet (20 mg total) by mouth daily. 30 tablet?? 1 03/24/2021 ?? Active ciprofloxacin (CIPRO) 500 mg tablet?? Indications: Prophylaxis, medical Take 1 tablet (500 mg total) by mouth every morning before breakfast Indications: Prophylaxis, medical. 30 tablet?? 11 03/25/2021 ?? Active folic acid 1 mg tablet?? Take 1 tablet (1 mg total) by mouth daily. 30 tablet?? 1 03/24/2021 ?? Active magnesium oxide (MAG-OX) 400 mg (241.3 mg magnesium) tablet?? Take 1 tablet (400 mg total) by mouth 2 (two) times a day before breakfast and dinner. 60 tablet?? 1 03/24/2021 ?? Active pantoprazole (PROTONIX) 40 mg EC tablet?? Take 1 tablet (40 mg total) by mouth every morning before breakfast. 30 tablet?? 1 03/24/2021 ?? Active vitamin A 3,000 mcg (10,000 Unit) capsule?? Take 1 capsule (3,000 mcg total) by mouth 3 (three) times a week for 50 doses. 50 capsule?? 0 04/18/2021 08/12/2021 Active ?? Additional Information Patient not taking. Reported on 07/02/2021 ?? gabapentin (NEURONTIN) 300 mg capsule?? Take 300 mg by mouth 3 (three) times a day. ?? 0 05/27/2021 ?? Active lactulose (CHRONULAC) 10 gram/15 mL solution?? Take 45 mL by mouth 3 (three) times a day. ?? 0 04/23/2021 ?? Active ondansetron ODT (ZOFRAN-ODT) 8 mg disintegrating tablet?? Take 1 tablet by mouth 3 (three) times a day as needed. ?? 0 04/23/2021 ?? Active promethazine (PHENERGAN) 25 mg tablet?? Take 25 mg by mouth every 6 (six) hours as needed for nausea. ?? 0 05/27/2021 ?? Active oxyCODONE (ROXICODONE) 5 mg immediate release tablet?? Take 2.5-5 mg by mouth 2 (two) times a day asneeded for pain. ?? 0 06/01/2021 ?? Active ergocalciferol (DRISDOL) 50,000 Unit capsule?? Take 50,000 Units by mouth once a week. ?? 0 04/01/2021 ?? Active traMADoL (ULTRAM) 50 mg tablet?? Take 50 mg by mouth every 6 (six) hours as needed for pain. ?? 0 06/11/2021 ?? Active Xifaxan 550 mg tablet?? Take 550 mg by mouth 2 (two) times a day. ?? 0 05/27/2021 ?? Active Vitamin B-1, mononitrate, 100 mg tablet?? Take 100 mg by mouth every morning. ?? 0 05/27/2021 ?? Active phytonadione, vitamin K1, (MEPHYTON) 5 mg tablet?? Take 1 tablet (5 mg total) by mouth daily for 7 doses. 7 tablet?? 0 07/07/2021 07/14/2021 Active ?? Allergies: Allergies Allergen Reactions ??? Azithromycin Unknown ?? Review of systems: -12 point ROS completed; pertinent ROS documented in HPI, all others negative. ?? Objective: Vitals Vitals: ?? 07/08/21 0956 07/08/21 1149 07/08/21 1330 07/08/21 1335 BP: (!) 86/40 106/47 107/48 ?? Cuff Location: ?? Right Arm ? Patient Position: ?? Sitting ? Pulse: ?? 81 79 ?? Resp: ?? 16 ? Temp: ? TempSrc: ? SpO2: ?? 98% 96% 97% ?? There is no height or weight on file to calculate BMI. GEN: Lying in bed, awake, answering questions appropriately, no distress HEENT: NCAT, MMM, sclera icterus noted, no conjunctival injection NECK: Supple, no JVD CV: RRR, normal S1/S2 without m/r/g Lungs: CTAB, no crackles or wheezes Abdomen: Soft, non-tender, non-distended, +BS Ext: No peripheral edema Skin: Intact, no rashes or lesions Musculoskeletal: Normal bulk and tone, no deformities Neuro: Awake, alert, fully oriented. No asterixis. ?? Labs and other diagnostic studies: Reviewed. Pertinent results documented in A&P above. ?? PCP: No primary care provider on file. ?? Ervin Childs MD 07/08/2021 15:54 ?? EAU REPORT DEVELOPER documented in this encounter ED Notes Jarek Lindsay MD - 07/08/2021 2:57 PM CST Transfer of Care Note Patient: Catia Carias : 1990 Age: 30 y.o. female Sign out received from Dr. Jessica Moyer MD. Please see original ED provider note for further details. PERTINENT HPI, PMH, & ED COURSE In brief, 30 y.o. 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 Patient reports confusion, chronic abdominal pain (unclear how long). ED Course Hgb is 7.0, stable. Platelets low, but stable. LFTs are abnormal but consistent with baseline. Unremarkable workup. BSGUS showed sludge but no stones. urinalysis non infectious. Ascites was visualized around the bladder. Planning for admission for 1-2 nights for observation, ceftriaxone for SBP. Did not tap, no good fluid collection to tap. Work-UP Pending Hospitalist will see patient in ED. Disposition pending hospitalist evaluation. Does she need discharge abx? FINAL ED COURSE, DISPOSITION, AND PLAN Upon assuming care, patient was assessed at bedside and is resting comfortably in no acute distress.The hospitalist is present and has evaluated the patient at bedside. After lengthy history, hospitalist team recommends discharge home with plan to f/u with primary care physician. There is no particular need for hospital admission at this time. Patient is requesting short course of home pain rx untilcan be seen by primary team. I prescribed 10 tablets of 5mg oxycodone. She will need to obtain the rest of her chronic pain regimen from her primary team. The patient was also requesting medication to help her sleep as she has been dealing with chronic insomnia. Discussed melatonin at home; however, if she is requesting further sleep aid, she is referred to her primary care team who knows her much more closely and can prescribe this medication if they feel it is indicated. The patient has a scheduled follow-up with her primary care doctor tomorrow morning. She reports that she will keep this appointment, and prefers to go home at this time. The patient was observed in the department until her ride arrived. Discharged home in stable condition. Final Clinical Impression Abdominal pain Ascites Disposition and Plan Discharge home Pain control with short rx for oxycodone 5mg F/u with PCP in the morning for pain control and to discuss insomnia Jarek Lindsay MD, 07/08/2021 2:57 PM Emergency Medicine Resident PGY-1 EAU REPORT DEVELOPER Grazyna Delgadillo RN - 07/08/2021 1:19 PM CST Initial Utilization review screening completed. Patient appears to be appropriate for INPATIENT based on ammonia 110 I spoke with provider regarding inpt vs obs, advising obs appropriate, order to remain obs Final order/decision will be based upon provider's assessment of patient. Grazyna Delgadillo ED RN Clinical Coordinator Pager: [phone] [employer] EAU REPORT DEVELOPER Evon Claros RN - 07/08/2021 1:07 PM CST ED to IP Nursing Handoff Note S (Situation) Reason for Admission: 1. Ascites due to alcoholic hepatitis [facility] Precautions/Isolation: Standard Suspected Infection/Sepsis: No Restraints: None Combative: No B (Background) Pertinent Medical History: Past Medical History: Diagnosis Date ??? Anemia ??? Ascites ??? Chronic pancreatitis () ??? Cirrhosis of liver () ??? CKD (chronic kidney disease) ??? 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 Generalized anxiety disorder ??? GERD (gastroesophageal reflux disease) ??? Hepatic encephalopathy () ??? Hypokalemia ??? Insomnia ??? Neuropathy ??? Pyelonephritis Pertinent Social History: Occupational History ??? Not on file Tobacco Use ??? Smoking status: Not on file ??? Smokeless tobacco: Not on file Substance and Sexual Activity ??? Alcohol use: Not on file ??? Drug use: Not on file ??? Sexual activity: Not on file Social History Narrative ??? Not on file A (Assessment) Vital Signs: BP 106/47 (Cuff Location: Right Arm, Patient Position: Sitting) Pulse 81 Temp 36.9 ??C (98.5 ??F) (Oral) Resp 16 SpO2 98% Oxygen: Room Air Mobility: Independent Mental Status: Oriented Fall Risk: No Skin Integrity: intact On Telemetry: No Lines/Drains/Portacath: Yes R (Recommendations) Radiology/Labs Complete: No - pending COVID Equipment Needs: None Specialty Bed: N/A Double room appropriate: Yes Safety Concerns/Continuous Monitoring: None Suicide Risk Level: None Family Present: No Next of Kin/Nursing Facility contacted: no Destination: Floor Patient Belongings Documented: No Was the patient held in the department for an extended period of time (bridging or border patient): No Other Considerations: NA RN: Evon Claros RN Extension #: [id number] EAU REPORT DEVELOPER Daniel Ambrocio - 07/08/2021 12:04 PM CST Parris Knight, patient's mother, would like an update of her daughters condition. Daniel Guerrero MD - 07/08/2021 7:33 AM CST ED Faculty Attestation and Note Catia Carias 30 y.o. female [id number] FACULTY ATTESTATION I Hiro Doe MD, performed a history and physical examination of the patient and discussed management with the resident. I reviewed the resident's note and agree with the documented findings and plan of care. RN and ANCILLARY NOTES I have reviewed nursing and ancillary notes, and agree with protocol as initiated. Physical Exam: BP (!) 95/45 (Cuff Location: Right Arm, Patient Position: Sitting) Pulse 76 Temp 36.9 ??C (98.5 ??F) (Oral) Resp 18 SpO2 97% CRITICAL CARE Not applicable MEDICAL DECISION MAKING Catia Carias is a 30 y.o. female who presented today with Abdominal Pain . Medical record discussed, reviewed and interpreted. Transfer for increased ammonia level with known liver failure. Well appearing on exam. Minimal abd pain. No obvious ascites. Will admit for GI consult and treat for possible SBP Daniel Doe MD, 07/08/2021 7:33 AM Jessica Echols MD - 07/08/2021 7:13 AM CST ED Provider Note Patient: Catia Carias : 1990 Age: 30 y.o. female CHIEF COMPLAINT Abdominal Pain SUBJECTIVE HISTORY OF PRESENT ILLNESS Catia Carias is a 30 y.o. female with a past medical history of end-stage liver disease who presents as a transfer from an outside hospital. Paperwork from outside hospital unclear as to why patient was transferred. When the patient is asked why she is here, she states that she is confused and is not quite sure herself. She thinks it may be because her hemoglobin was low at outside hospital, however transfer paperwork says all labs are pending at the time of transfer. Upon further history, the patient does report a history of chronic abdominal pain, she is unclear onthe specifics of this pain due to her confusion. She is not sure if it has gotten worse recently, how long it has been going on, what makes it better or worse. Sometimes she thinks it is worse when shedoes not eat, sometimes worse after she eats. She is not sure about any associated symptoms. She mayhave had some chills at home. The patient is in end-stage liver disease secondary to alcohol use. She denies current alcohol use or illicit drug use. She does use medical marijuana which she thinks may be helping with her appetite,which has been low recently. She also smokes tobacco. Past Medical History Past medical history reviewed with patient and noncontributory except as noted in HPI Past Surgical History Past surgical history reviewed with patient and noncontributory except as noted in HPI Family/Social Hx: Patient's FH/SH was reviewed with patient and noncontributory except as noted in HPI Medications No current facility-administered medications for this encounter. No current outpatient medications on file. Allergies Allergies Allergen Reactions ??? Azithromycin Unknown ROS 10 point ROS performed and negative except as noted in HPI OBJECTIVE Physical Exam: BP (!) 95/45 (Cuff Location: Right Arm, Patient Position: Sitting) Pulse 76 Temp 36.9 ??C (98.5 ??F) (Oral) Resp 18 SpO2 97% General: Awake, Alert, Appropriate. NAD Head: NC/AT Eyes: No conjunctival injection, no scleral icterus, lids normal Neck: Supple.Trachea midline. No LAD. Normal neck ROM. Cardio: RRR. Systolic murmur. Distal pulses 2+ bilaterally. Pulm: Equal breath sounds bilaterally with good air movement. No increased WOB or accessory muscle use noted. Speaking in complete sentences. Equal rise and fall of the chest. GI: Soft, NT/ND. No rebound tenderness or guarding. No masses. No obvious ascites or distention or fluid wave. MSK: No asterixis. legs without deformity, swelling, redness, rash. No tenderness to palpation of muscle compartments or joints. Full ROM. Neuro: PERRLA. AOx3. CN II-XII grossly intact. No grossly focal sensory or motor deficits noted. Normal speech. Skin: No rashes, lesions or bruising. Skin warm/dry Psych: Affect and behavior appropriate. ASSESSMENT AND PLAN MEDICAL DECISION MAKING Catia Carias is a 30 y.o. female with a PMH of end stage liver disease who presents as a transfer from outside hospital presumably for low hemoglobin or abdominal pain. Paperwork from outside hospital also reports a history of pancreatitis, chronic kidney disease stage IV, and GERD. Upon evaluation in the ED, the patient is noted to have some hypotension with BP is 90s over 50s, however looking at care everywhere her blood pressure seems to run about this level. Her physical exam is reassuring, her belly is soft and nontender and nondistended. PLAN - Diagnostic CBC ED chem U/A and UPT Ammonia LFTs Lipase Abdomen/gallbladder u/s Therapeutic Dilaudid ED Course as of 07/08/21 1651 Tue Jul 08, 2021 0836 Ammonia(!): 110 1053 PANEL HEPATIC FUNCTION(!): Total Protein 5.3(!) Albumin 3.0(!) Bili Total 7.1(!) Bili Direct 2.8(!) Alk Phos 150(!) ALT (SGPT) 18 AST(SGOT) 47(!) LFTs abnormal but exactly the same as priors Blood work is most remarkable for an ammonia of 110, which appears to be above the patient's baseline. Otherwise her LFTs, hemoglobin, and platelets are all deranged but very consistent with prior blood work. Her lipase is unremarkable and she has no electrolyte disturbances. U/A is not infected, UPT negative. Notably she has a normal creatinine despite a charted history of chronic kidney disease stage IV. Gallbladder ultrasound is remarkable for sludge and a minimal bowel of pericholecystic fluid versus ascites. She is also noted to have pockets of ascites surrounding her bladder, however no clear drainable pocket in any other abdominal quadrant. The patient reports taking her lactulose as prescribed at home. She reports confusion but she is AO x3 and although she is unable to provide a detailed history, she appears to have normal mentation on exam, no asterixis. Etiology of the patient's abdominal pain unclear. However given her pain and the small pockets of ascites noted on ultrasound, it is prudent to treat her as presumed SBP. She will be admitted to the hospital to monitor mental status and abdominal pain. She received 1 dose of ceftriaxone in the emergency department. Unfortunately there is no drainable pocket noted on ultrasound and so diagnostic paracentesis will not be performed. Plan for admission to medicine service for presumed SBP. Discussed admission with patient, who was agreeable and expressed understanding of this plan. Hospitalist was paged and agreed to see the patient in emergency department. The patient remained in the emergency department upon my shift awaiting evaluation by the hospitalist. Their care was signed out [id number] with the oncoming provider Dr. Lindsay. Final Clinical Impression Abdominal pain, unclear etiology Disposition and Plan Final disposition to be determined by oncoming provider Currently planning for admission to [facility] Jessica Moyer MD, 07/08/2021 7:13 AM Emergency Medicine Resident PGY-1 EAU REPORT DEVELOPER Analilia Espitia RN - 07/08/2021 7:09 AM CST Pt transferred here from OSH due to liver failure. Pt has been to multiple EDs in the last few days after running out of pain medication. EAU REPORT DEVELOPER Amy Connolly RN - 07/08/2021 6:24 AM CST Bed: A08 Expected date: Expected time: Means of arrival: Comments: 336 NF transfer EAU REPORT DEVELOPER Monika Jean RN - 07/08/2021 5:27 AM CST Report from [facility] Pt presented for abd pain r/t end stage liver failure r/t ETOH (sober 2 years) Pt had ran out of chronic pain meds, Hgb 7.0 (chronically 7-9), COVID negative EAU REPORT DEVELOPER documented in this encounter Plan of Treatment Not on filedocumented as of this encounter Procedures Procedure Name Priority Date/Time Associated Comments Diagnosis COVID-19 SURVEILLANCE STAT 07/08/2021 1:32 PM Results for this TABLEAU REPORT DEVELOPER procedure are i n the results section. ULT GALLBLADDER Routine 07/08/2021 12:13 Results for this PM TABLEAU REPORT DEVELOPER procedure are i n the results section. ED US STAT 07/08/2021 10:30 Results for this ABDOMINAL/GALLBLADDER AM TABLEAU REPORT DEVELOPER proced ure are in the results section. EXTRA TUBE - LAVENDER Routine 07/08/2021 7:28 AM Results for this TABLEAU REPORT DEVELOPER procedure are i n the results section. PC FREE STANDING Routine 07/08/2021 7:28 AM Resul ts for this BLOOD DRAW BY TABLEAU REPORT DEVELOPER procedure are in VENIPUNCTURE the results section. PC FREE STANDING Routine 07/08/2021 7:28 AM Resul ts for this BLOOD DRAW BY TABLEAU REPORT DEVELOPER procedure are in VENIPUNCTURE the results section. PC ELECTROLYTES PANEL STAT 07/08/2021 7:27 AM Results for this TABLEAU REPORT DEVELOPER procedure are i n the results section. TC LAB ER STAT STAT 07/08/2021 7:27 AM Results for this URINALYSIS TABLEAU REPORT DEVELOPER procedure are i n the results section. PROTHROMBIN (PT) & STAT 07/08/2021 7:27 AM Res ults for this INR TABLEAU REPORT DEVELOPER procedure are i n the results section. PC LAB TEST Routine 07/08/2021 7:27 AM Results for this TABLEAU REPORT DEVELOPER procedure are i n the results section. PC AMMONIA STAT 07/08/2021 7:27 AM Results f or this TABLEAU REPORT DEVELOPER procedure are i n the results section. LIPASE STAT 07/08/2021 7:27 AM Results f or this TABLEAU REPORT DEVELOPER procedure are i n the results section. PANEL HEPATIC STAT 07/08/2021 7:27 AM Results for this FUNCTION TABLEAU REPORT DEVELOPER procedure are i n the results section. documented in this encounter Results COVID-19 SURVEILLANCE (07/08/2021 1:32 PM TABLEAU REPORT DEVELOPER) [facility] Method Time Signature COVID-19 Not Detected Not Detected [facility] Comment: This test was developed and its performa nce characteristics determined by [employer]. This testing, RT-PCR, has been authorized by the FDA under an Emergency Use Authorization (EUA ) for Coronavirus Disease-2019 during th e Public Health Emergency. This test has been jeff idated in accordance with the FDA's Guidance Document Policy for EUA use and Accelerated Template for Laboratories Certified to Perform High-Complexity Testing [employer] CLIA: EUA Template (Updated July 08, 2019)This test is only authorized for the duration of time the declaration that circumstances exist justifying the authorization of the emergency use of in vitro diagnostic tests for detection of SARS-CoV-2 virus and/or diagnosis of COVID-19 infection under section 564(b)(1) of the Act, 21U.S.C. 3 60bbb-3(b)(1), unless the authorization is terminated or revoked sooner. Nasopharyngeal specimens are the preferred specimens. Specimen (Source) Anatomical Collection Method Collection Time Re ceived Time Location / / Volume Laterality Nasopharyngeal Swab 07/08/2021 1:32 07/08 PM TABLEAU REPORT DEVELOPER 1:40 PM TABLEAU REPORT DEVELOPER Narrative [facility] - 07/08/2021 2:11 PM TABLEAU REPORT DEVELOPER Is the patient a healthcare employee: No Is the patient a [employer] ([facility]) Employee : No Daniel Doe MD LABORATORY Performing Organization Address City/State/[facility] Code Phon e Number [facility] [place] [address] UL GALLBLADDER (07/08/2021 12:13 PM TABLEAU REPORT DEVELOPER) Anatomical Region Laterality Modality Abdomen Ultrasound Specimen (Source) Anatomical Collection Method Collection Time Re ceived Time Location / / Volume Laterality 07/08/2021 12:53 PM TABLEAU REPORT DEVELOPER Impressions 07/08/2021 1:17 PM TABLEAU REPORT DEVELOPER Impression: Biliary sludge without shadowing gallstones. No sonographic findings to suggest acute cholecystitis. I have personally reviewed the image(s) and initial interpretation, and I agree with the findings as documented by the resident/fellow. Reading Radiologist: Daron Mccurdy Reading Resident: Gerard Webb Narrative 07/08/2021 1:17 PM TABLEAU REPORT DEVELOPER Indication: sludge on ED u/s, chronic abd pain, unclear history ?? Comparison: None available Findings: Grayscale and color Doppler im ages of the gallbladder demonstrate a moderate amount of layering biliary sludge with scattered echogenic foci. No clear shadowing gallstones. No pericholecystic fluid. Gallbladder wall measures 2 mm. C ommon bile duct is not well visualized. The adjacent visualized aspect of the liver are unremarkable. Negative sonographic Lovell's sign, however patient was medicated for pain at time of examination. Procedure Note Daron Mccurdy MD - 07/08/2021Formattin g of this note might be different from the original. Indication: sludge on ED u/s, chronic ab d pain, unclear history Comparison: None available Findings: Grayscale and color Doppler im ages of the gallbladder demonstrate a moderate amount of layering biliary sludge with scattered echogenic foci. No clear shadowing gallstones. No pericholecystic fluid. Gallbladder wall measures 2 mm. Common b ile duct is not well visualized. The adjacent visualized aspect of the liver are unremarkable. Negative sonographic Lovell's sign, however patient was medicated for pain at time of examination. IMPRESSION Impression: Biliary sludge without shado wing gallstones. No sonographic findings to suggest acute cholecystitis. I have personally reviewed the image(s) and initial interpretation, and I agree with the findings as documented by the resident/fellow. Reading Radiologist: Daron Mccurdy Reading Resident: Gerard Webb Daniel Doe MD ULT ED US ABDOMINAL/GALLBLADDER (07/08/2021 10:30 AM TABLEAU REPORT DEVELOPER) Anatomical Region Laterality Modality Ultrasound Specimen (Source) Anatomical Location Collection Method / Collectio n Time Received Time / Laterality Volume Narrative 07/08/2021 1:12 PM TABLEAU REPORT DEVELOPER ED Abdomen/Gallbladder Ultrasound Indications: Abdominal pain Window: Longitudinal and Transverse Findings: No gall stones identified, No anterior gallbladder wall thickening identified, No CBD dilation i dentified, sludge, and Pericholecystic fluid present Impression: Findings equivocal for acute cholecystitis. No stones or CBD dilation, but pericholecystic fluid and sludge Jessica Moyer MD, 07/08/2021 10:54 AM ED Attending Ultrasound Note: I have personally reviewed the image(s) and initial interpretation, and I agree with the findings as documented. Daniel Doe MD, 07/08/2021 1:11 PM Daniel Doe MD ED ULT (ABNORMAL) CBC WITH PLTS/AUTO DIFF (07/08/2021 7:28 AM TABLEAU REPORT DEVELOPER) [facility] Method Time Signature WBC 5.29 4.00 - [facility] 10.00 k/cmm RBC 1.93 (L) 3.90 - [facility] 5.20 m/cmm Hgb 7.0 (AA) 11.5 - [facility] 15.7 g/dL Hematocrit 21.2 (L) 34.0 - [facility] 45.0 % MCV 109.8 (H) 80.0 - [facility] 100.0 fL MCH 36.3 (H) 25.0 - [facility] 32.0 pg MCHC 33.0 31.0 - [facility] 36.0 g/dL RDW 13.7 11.5 - [facility] 14.5 % Plt 74 (L) 150 - 400 [facility] k/cmm MPV 9.7 6.5 - 12.5 [facility] fL Automated Abs 3.54 1.70 - [facility] Neutrophil 6.50 k/cmm Comment: Preliminary ANC, Final Result t o Follow Abs Immature Granulocyte 0.01 0.00 - 0.09 k/cmm [facility] Comment: The Immature Granulocyte Absolu te count contains metamyelocytes and myelocytes. Abs Neutrophil 3.54 1.70 - 6.50 k/cmm [facility] B Abs Lymphocyte 1.21 0.80 - 4.00 k/cmm [facility] B Abs Monocyte 0.40 0.20 - 1.00 k/cmm [facility] Abs Eosinophil 0.10 0.00 - 0.60 k/cmm [facility] B Abs Basophil 0.03 0.00 - 0.20 k/cmm [facility] Orin Cell Slight [facility] Specimen Anatomical Collection Method Collection Time Receive d Time (Source) Location / / Volume Laterality Blood 07/08/2021 7:28 AM 9:32 TABLEAU REPORT DEVELOPER AM TABLEAU REPORT DEVELOPER Narrative [facility] - 07/08/2021 10:29 AM TABLEAU REPORT DEVELOPER Critical value for Hgb called to and julisa d back by Charly Bowman RN in ER A at 07/08/2021 10:29:44 TABLEAU REPORT DEVELOPER by Ines Bal MLS . Daniel Doe MD LABORATORY Performing Organization Address City/State/ZIP Code Phon e Number [facility] [place] [address] EXTRA TUBE - LAVENDER (07/08/2021 7:28 AM TABLEAU REPORT DEVELOPER) athologist Signature LAVENDER TUBE Stored [facility] Comment: Lavendar (EDTA) tubes collected at [facility] are stored for 3 days from the collection date. Specimen Anatomical Collection Method Collection Time Receive d Time (Source) Location / / Volume Laterality Blood 07/08/2021 7:28 AM 2 7:35 TABLEAU REPORT DEVELOPER AM TABLEAU REPORT DEVELOPER Narrative [facility] - 07/08/2021 7:35 AM TABLEAU REPORT DEVELOPER Ordered by ~[id number] Provider Unknown LABORATORY Performing Organization Address City/[facility] Phon e Number [facility] [place] [address] EXTRA TUBE - SST (07/08/2021 7:28 AM TABLEAU REPORT DEVELOPER) athologist Signature SST TUBE Stored [facility] Comment: SST tubes (Serum Separator) are stored in the lab for 3 days from the collection date. Specimen Anatomical Collection Method Collection Time Receive d Time (Source) Location / / Volume Laterality Blood 07/08/2021 7:28 AM 2 7:35 TABLEAU REPORT DEVELOPER AM TABLEAU REPORT DEVELOPER Narrative [facility] - 07/08/2021 7:35 AM TABLEAU REPORT DEVELOPER Ordered by ~[id number] Provider Unknown LABORATORY Performing Organization Address [facility] Phon e Number [facility] [place] [address] TEST URINE (07/08/2021 7:27 AM TABLEAU REPORT DEVELOPER) athologist Signature Ur Negative Negative [facility] UPT performed [facility] at Comment: Test performed by: [facility] Clinical Laboratory [id number] [place] [id number] Specimen Anatomical Collection Method Collection Time Receive d Time (Source) Location / / Volume Laterality Urine 07/08/2021 7:27 AM 2 TABLEAU REPORT DEVELOPER 10:53 AM TABLEAU REPORT DEVELOPER Daniel Doe MD LABORATORY Performing Organization Address City/[facility] Phon e Number [facility] [place] [address] (ABNORMAL) URINALYSIS,TOTAL (07/08/2021 7:27 AM TABLEAU REPORT DEVELOPER) [facility] gist Method Time Signature Color YELLOW YELLOW [facility] Appearance CLEAR CLEAR [facility] Urine Glucose NEGATIVE NEGATIVE [facility] mg/dL Bili UA TRACE (A) NEGATIVE [facility] Ketones NEGATIVE NEGATIVE [facility] mg/dL Specific [place] 1.024 1.003 - [facility] 1.030 Blood Ur NEGATIVE Neg-Trace [facility] PH Urine 6.5 5.0 - 7.0 [facility] Protein Ur TRACE Neg-Trace [facility] mg/dL Urobilinogen NORMAL NORMAL EU/dL [facility] Nitrite Ur NEGATIVE NEGATIVE [facility] Leuk Est NEGATIVE Neg-Trace [facility] WBC Ur 0-5 0 - 5 perHPF [facility] RBC Ur 0-3 0 - 3 perHPF [facility] SQ EPITH 0-5 0 - 5 perHPF [facility] Mucus 1+ perLPF [facility] Urinalysis [facility] Performed at: Specimen Anatomical Collection Method Collection Time Receive d Time (Source) Location / / Volume Laterality Urine 07/08/2021 7:27 AM 2 8:09 TABLEAU REPORT DEVELOPER AM TABLEAU REPORT DEVELOPER Karina Israel MD LABORATORY Performing Organization Address City/[facility] Phon e Number [facility] [place] [address] (ABNORMAL) PROTHROMBIN (PT) & INR (07/08/2021 7:27 AM TABLEAU REPORT DEVELOPER) P athologist Signature PT 39.2 (H) 9.0 - 12.5 [facility] sec INR 3.3 (H) 0.8 - 1.1 [facility] Specimen Anatomical Collection Method Collection Time Receive d Time (Source) Location / / Volume Laterality Blood 07/08/2021 7:27 AM 2 7:47 TABLEAU REPORT DEVELOPER AM TABLEAU REPORT DEVELOPER Karina Israel MD LABORATORY Performing Organization Address City/[facility] Phon e Number [facility] [place] [address] (ABNORMAL) AMMONIA (07/08/2021 7:27 AM TABLEAU REPORT DEVELOPER) P athologist Signature Ammonia 110 (H) 11 - 51 [facility] mcmol/L Specimen Anatomical Collection Method Collection Time Receive d Time (Source) Location / / Volume Laterality Blood 07/08/2021 7:27 AM 2 7:53 TABLEAU REPORT DEVELOPER AM TABLEAU REPORT DEVELOPER Narrative [facility] - 07/08/2021 8:18 AM TABLEAU REPORT DEVELOPER Send specimen on ice! Karina Israel MD LABORATORY Performing Organization Address City/State/ZIP Code Phon e Number [facility] [place] [address] LIPASE (07/08/2021 7:27 AM TABLEAU REPORT DEVELOPER) P athologist Signature Lipase 14 13 - 60 IU/L [facility] Specimen Anatomical Collection Method Collection Time Receive d Time (Source) Location / / Volume Laterality Blood 07/08/2021 7:27 AM 7:47 TABLEAU REPORT DEVELOPER AM TABLEAU REPORT DEVELOPER Karina Israel MD LABORATORY Performing Organization Address City/[facility]/ZIP Code Phon e Number [facility] [place] [address] (ABNORMAL) PANEL HEPATIC FUNCTION (07/08/2021 7:27 AM TABLEAU REPORT DEVELOPER) P athologist Signature Total Protein 5.3 (L) 6.4 - 8.3 [facility] g/dL Albumin 3.0 (L) 3.8 - 5.1 [facility] g/dL Bili Total 7.1 (H) 0.1 - 1.2 [facility] mg/dL Bili Direct 2.8 (H) 0.0 - 0.3 [facility] mg/dL Alk Phos 150 (H) 35 - 104 [facility] IU/L ALT (SGPT) 18 <=33 IU/L [facility] AST(SGOT) 47 (H) 5 - 40 [facility] IU/L Specimen Anatomical Collection Method Collection Time Receive d Time (Source) Location / / Volume Laterality Blood 07/08/2021 7:27 AM 7:47 TABLEAU REPORT DEVELOPER AM TABLEAU REPORT DEVELOPER Karina Israel MD LABORATORY Performing Organization Address City/State/ZIP Code Phon e Number [facility] [place] [address] (ABNORMAL) ED CHEMISTRY LABS(NA,K,CL,CO2,GLU,CREAT,CA-IONIZED,ANION GAP) (07/08/2021 7:27 AM TABLEAU REPORT DEVELOPER) Analysis Performed At Patho logist Time Signature Sodium 140 135 - 148 [facility] mEq/L Chloride 111 (H) 92 - 108 [facility] mEq/L AnGap 7 (L) 8 - 16 [facility] mEq/L Glucose 83 70 - 100 [facility] mg/dL ICA, Actual 4.34 (L) 4.40 - [facility] 5.20 mg/dL ICA, pH 4.51 4.40 - [facility] Corrected 5.20 mg/dL Creatinine 0.67 0.50 - [facility] 1.00 mg/dL BICARB 22 22 - 26 [facility] mEq/L eGFR, High >120 >=60 [facility] ml/min/1.7 3m2 Comment: Calculated using CKD-EPI equati on eGFR, Low 118 >=60 ml/min/1.73m2 [facility] Comment: Calculated using CKD-EPI equati on Potassium 4.0 3.5 - 5.3 mEq/L [facility] Specimen Anatomical Collection Method Collection Time Receive d Time (Source) Location / / Volume Laterality Blood 07/08/2021 7:27 AM 7:36 TABLEAU REPORT DEVELOPER AM TABLEAU REPORT DEVELOPER Karina Israel MD LABORATORY Performing Organization Address City/State/ZIP Code Phon e Number [facility] [place] [address] documented in this encounter Visit Diagnoses Diagnosis Ascites due to alcoholic hepatitis - Monica correa documented in this encounter Administered Medications Inactive Administered Medications - up to 3 most recent administrations Medication Order MAR Action Action Date Dose Rate Site cefTRIAXone (ROCEPHIN) 1 g in New Bag 07/08/2021 1:32 PM TABLEAU REPORT DEVELOPER 1 g 200 mL/hr NaCl 0.9% 100 mL IVPB 1 g, Indication (Select One): Infection - Suspected, SITE (Select all that apply): GI/Intra-abdominal, Cultures Ordered? No, Intravenous, ONE TIME, 1 dose, On Wed07/08/21 at 1305 HYDROmorphone PF (DILAUDID) 1 mg/mL injection Given 4:43 PM TABLEAU REPORT DEVELOPER 0.5 mg 0.5 mg 0.5 mg, IV Push, ONE TIME, 1 dose, On Wed07/08/21 at 1640 lactulose (KRISTALOSE) package 20 g Given 07/08/2021 3:33 PM TABLEAU REPORT DEVELOPER 20 g 20 g, Oral, TID, First dose on Wed07/08/21 at 1450, Until Discontinued oxyCODONE (ROXICODONE) tablet 5 mg Given 07/08/2021 10:39 AM TABLEAU REPORT DEVELOPER 5 mg 5 mg, Oral, ONE TIME, 1 dose, On Wed07/08/21 at 1030 documented in this encounter Active and Recently Administered Medications Times are shown in TABLEAU REPORT DEVELOPER. Scheduled Medication Order 07/06/2021 07/07/2021 07/08/2021 cefTRIAXone (ROCEPHIN) 1 g in NaCl 0.9% 100 mL IVPB (COMPLETED) 1332 (New Bag - Provider: Evon Claros, MARIAA)1533 (Infusion completed - Provider: Evon Claros, MARIAA) 1 g, Indication (Select One): Infection - Suspected, SITE (Select all that apply): GI/Intra-abdominal, Cultures Ordered? No, Intravenous, ONE TIME, 1 dose, On Wed07/08/21 at 1305 HYDROmorphone PF (DILAUDID) 1 mg/mL injection 0.5 mg (COMPLETED) 1643 (Given - Provider: Evon Claros RN) 0.5 mg, IV Push, ONE TIME, 1 dose, On Wed07/08/21 at 1640 lactulose (KRISTALOSE) package 20 g (CANCELED) 1533 (Given - Provider: Evon Claros RN)2000 (Canceled Entry - Provider: Evon Claros RN - Comment: discharged) 20 g, Oral, TID, First dose on Wed07/08/21 at 1450, Until Discont inued oxyCODONE (ROXICODONE) tablet 5 mg (COMPLETED) 1039 (Given - Provider: Grazyna Wisdom RN) 5 mg, Oral, ONE TIME, 1 dose, On Wed07/08/21 at 1030 documented in this encounter
--- OUTSIDE RECORDS SUMMARY | 2021-12-28 23:36 | XMS_ITS | Encounter Summary ---
:1990 Author Care Team Providers Name Role Phone Ervin Schroeder MD Primary Care Provider [phone] Parris Knight (Mother) Patient Designee [phone] Jairo Rodriguez COMPUTATIONAL THEORY SCIENTIST Nurse Practitioner [phone] Matthew Rollins MD Transplant Gizzard Puller [phone] [facility] Care Team Palliative Care [phone] Taylor Paul RN Palliative Care [phone] Gela Goff [facility] Palliative Care [phone] Zenobia Kirby [facility] Fitting Room Attendant [phone] Reason for Visit JAN Initial Assessment and Plan Assessment Note #[id number] Patient is seen for an initial visit and assessment by [facility]: This is a joint visit with Ankita [facility] Patient states that she is currently on with a doctor's visit at the time of the call. Ok to reschedule. No services performed. Discussion Note: None recorded.Patient educational handouts: No information available. Plan of Care Reminders Provider Appointments None recorded. ? ? Lab None recorded. ? ? Referral None recorded. ? ? Procedures None recorded. ? ? Surgeries None recorded. ? ? Imaging None recorded. ? ? Medications Name Start Date ? ? b-1 100 mg tabs ? diclofenac 1 % topical gel ? APPLY 2 GRAMS TOPICALLY FOUR TIMES DAILY TO PAINFUL A FRED ergocalciferol (vitamin D2) 1,250 mcg (50,000 unit) ca psule ? TAKE 1 CAPSULE BY MOUTH ONCE A WEEK folic acid 1 mg tablet ? TAKE 1 TABLET BY MOUTH DAILY furosemide 20 mg tablet ? TAKE 2 TABLETS BY MOUTH DAILY gabapentin 300 mg capsule ? Take by mouth 3 (three) times a day. Ta kes 600 mg in the morning, 600 mg in the afternoon, and 900 mg at bedtime. gabapentin 600 mg tablet ? lactulose 10 gram/15 mL oral solution ? TAKE 15 MLS BY MOUTH THREE TIMES DAILY lidocaine 5 % topical patch ? APPLY 1 PATCH BY TOPICAL ROUTE ONCE DAILY x 14 days. Apply to leg lorazepam 1 mg tablet ? TAKE 1 TABLET BY MOUTH ONCE FOR 1 DOSE. TAKE BEFORE C T SCAN ONCE magnesium oxide 400 mg (241.3 mg magnesium) tablet ? TAKE 1 TABLET BY MOUTH TWICE DAILY marijuana (cannabis) ? Apply 1 each topically daily. Med Name: Medical Cannabis [place] (50 mg THC/oz) 0.2% THC/CBD <0.1% marijuana (cannabis) buds/leaves for smoking ? Inhale 1 each as needed. Med Name: [place] Cannabis Flower, smoking once weekly as needed for sleep; details unclear nicotine (polacrilex) 2 mg buccal lozenge ? APPLY 1 LOZENGE TO CHEEK NEEDED FOR SMOKING CESSAT ION ondansetron 8 mg disintegrating tablet ? DISSOLVE 1 TABLET ON THE TONGUE THREE T IMES DAILY NEEDED FOR NAUSEA OR VOMITING oxycodone 5 mg tablet ? TAKE 1/2 TO 1 TABLET BY MOUTH TWICE DAILY NEEDED F OR PAIN pantoprazole 40 mg tablet,delayed release ? TAKE 1 TABLET BY MOUTH EVERY DAY phytonadione (vitamin K1) 5 mg tablet ? TAKE 2 TABLETS BY MOUTH EVERY DAY ropinirole 2 mg tablet ? TAKE 1 TABLET BY MOUTH AT BEDTIME spironolactone 100 mg tablet ? spironolactone 50 mg tablet ? Take 2 tablets (100 mg total) by mouth daily. sulfamethoxazole 800 mg-trimethoprim 160 mg tablet ? TAKE 1 TABLET BY MOUTH EVERY DAY thiamine HCl (vitamin B1) 100 mg tablet ? TAKE 1 TABLET BY MOUTH DAILY trazodone 50 mg tablet ? TAKE 1 TABLET BY MOUTH EVERY DAY vitamin A 10,000 unit capsule ? Take 1 capsule (3,000 mcg total) by mouth 3 (three) t imes a week for 50 doses. Xifaxan 550 mg tablet ? TAKE 1 TABLET BY MOUTH TWICE DAILY zinc sulfate 50 mg zinc (220 mg) capsule ? TAKE 1 CAPSULE BY MOUTH DAILY Medications Administered None recorded. Vitals None recorded. Results Lab Results None recorded. Allergies Code Code System Name Reaction Severity Onset RxNorm Azithromycin ? ? ? Problems Name Status Onset Date Source ? Thrombocytopenic Disorder Active 11/27/2021 ? Mood Disorder Active 11/27/2021 ? Anxiety Active 11/27/2021 ? Nicotine Dependence Active 11/27/2021 ? Cannabis Abuse Active 11/27/2021 ? Eating Disorder Active 11/27/2021 ? Chronic Pain Syndrome Active 11/27/2021 ? Acute Respiratory Failure Active 11/27/2021 ? Gastroesophageal Reflux Disease without Esophagitis Active 11/27/2021 ? Alcoholic Cirrhosis Active 11/27/2021 ? Hepatic Failure Active 11/27/2021 ? Chronic Pancreatitis Active 11/27/2021 ? Long-term Current Use of Opiate Analgesic Drug Active 0 11/27/2021 ? Procedures None recorded. Vaccine List None recorded. Social History 44. Assistance with Errands: N 30. Assistance with Transfers: N 8. ETOH Use: N 12. Stable Housing: Y 56. Difficulty Remembering Things: Y 10. Substance Use Concerns: N 42. Assistance with Eating: N 34. Assistance with Dressing/Grooming: N 4. Employment History: Notes: Unemploy ed 24. Physical Activity: No exercise 66. Suicidal Ideation: None reported 38. Assistance with Stairs: N 18. Has Reliable Social/Emotional Support: Y 28. Assistance with Walking: N 50. Uses Assistive Device(s): N 32. Assistance with Bathing: N 01. ACP Discussion Date: 10/14/2021 9. Illicit Drug Use: N 10. Living Situation: apartment 40. Assistance with Meal Prep: N 106. Assistance with Telephone: N 46. Assistance with Housekeeping: N 14. Feels Safe At Home: Y 36. Assistance with Toileting: N Family History Relation Problem Onset Age of Age Notes Father Hyperlipidemia (No N/A (No Notes) Information) Maternal Grandfather Arthritis (No N/A (No Not es) Information) Maternal Grandfather Carcinoma of prostate (No N/A (No Notes) Information) Maternal Grandfather Hypertensive disorder (No N/A (No Notes) Information) Maternal Grandmother Arthritis (No N/A (No Not es) Information) Maternal Grandmother Hyperlipidemia (No N/A (No N otes) Information) Maternal Uncle Disorder of thyroid (No N/A (No No jonathan) gland Information) Mother Seasonal allergic (No N/A (No Notes) rhinitis Information) Functional Status Unknown. Past Encounters 11/05/2021 Jairo Rodriguez COMPUTATIONAL THEORY SCIENTIST: [address], [place] [address], Ph. 10/14/2021 Evi Biggs LPN: [address] [place] [address], Ph. [phone] History of Present Illness None recorded. Review of Systems None recorded. Physical Exam ? General Adult Exam Reported By: Patient
--- OUTSIDE RECORDS SUMMARY | 2021-12-28 23:36 | XMS_ITS | Encounter Summary ---
:1990 Author Organization [facility] Address [address] [place] [address] Care Team Providers Name Role Phone [facility], [facility] Primary Care Provider [phone] [facility] Unavailable [phone] Reason for Referral (Routine) - Closed Specialty Diagnoses / Procedures Referred By Contact Refer red To Contact Procedures Gonzalo Tavera MD Return to previous diet [address] [place], [place] [address] Referral ID Status Reason Start Date Expiration Date Visits Requ ested Visits Authorized [id number] Closed 10/02/2018 10/02/2019 1 1 (Routine) - Closed Specialty Diagnoses / Procedures Referred By Contact Refer red To Contact Procedures Gonzalo Tavera MD Normal activity as tolerated [address] [place], [place] [address] Referral ID Status Reason Start Date Expiration Date Visits Requ ested Visits Authorized [id number] Closed 10/02/2018 10/02/2019 1 1 (Routine) - Closed Specialty Diagnoses / Procedures Referred By Contact Refer red To Contact Gonzalo Tavera MD [facility], [facility] [address] [place], [place] [id number] [address] [place] [address] Fax: Referral ID Status Reason Start Date Expiration Date Visits Requ ested Visits Authorized [id number] Closed 10/02/2018 10/02/2019 1 1 Question Answer Specify time frame for follow up? 1 Week (Routine) - Closed Specialty Diagnoses / Procedures Referred By Contact Refer red To Contact Procedures Gonzalo Tavera MD [facility] [place] [address] Referral ID Status Reason Start Date Expiration Date Visits Requ ested Visits Authorized [id number] Closed 10/02/2018 10/02/2019 1 1 Reason for Visit Inpatient Admission Specialty Diagnoses / Procedures Referred By Contact Refer red To Contact Diagnoses Acute hepatitis Hepatitis, Acute Referral ID Status Reason Start Date Expiration Date Visits Requ ested Visits Authorized [id number] 1 1 Encounter Details Date Type Department Care Team Description 09/30/2018 - Hospital Encounter W2 Hm-Hospitalist [facility] [id number] Acute hepatitis 10/02/[address] [place] [address] Gonzalo Tavera MD [address] [place], [place] [address] [place] [address] ADI [facility]OZ[facility] [address] Social History Tobacco Use Types Packs/Day Years [...] Assigned at Date Recorded Not on file documented as of this encounter Last Filed [...] Mass Index 27.91 09/30/2018 5:27 AM CDT documented in this encounter Discharge Summaries Gonzalo Tavera MD - 10/02/2018 12:02 PM CDT [facility] ([facility]) HOSPITAL DISCHARGE SUMMARY Patient Name: Catia Carias Date of : 1990 Admission Date: 09/30/2018 Discharge Date: 10/02/2018 She will be discharged to home. Primary care: [facility] Consultants: 1. Gastroenterology 2. Orthopedics DISCHARGE DIAGNOSES: Acute hepatitis and liver failure Excessive Tylenol use and overdose Recent distal humerus fracture status post ORIF Neuropraxia of the left ulnar nerve gastric esophageal reflux disease Marijuana use HPI: In brief the patient is a 28 y.o. female presenting with acute hepatitis and liver failure secondaryto excessive Tylenol use in the setting of neuropathic pain following an ORIF procedure of her left distal humerus. FOR PAST MEDICAL /SURGICAL /FAMILY/ SOCIAL HISTORIES AND ALLERGY, PLEASE SEE H&P HOSPITAL COURSE: 1. Acute Hepatitis and liver failure secondary to Excess Tylenol Use:??Presented as direct admissionfrom [address] in [place]??with??abdominal pain and vomiting??x 2??days. ??She had been using very high doses of Tylenol to control her neuropathic pain following orthopedic surgery 1 monthago. Her LFTs were significantly elevated with??INR 1.7, Acetaminophen level 4,??AST??3,843, alkaline phosphatase??156, ALT??737. Hepatitis panel non-reactive.?Tylenol overdose was unintentional.?She was treated per acetylcysteine protocol and poison control guidance and had good improvement in her labs. We discussed avoiding Tylenol for the next few weeks and in the future using it appropriatel y. I suspect she will have no long-term sequelae. 2. Recent Distal Humerus Fracture/ Neuropraxia of Left??Ulnar??Nerve:??Occurred on 08/26/18 secondaryto a fall in the shower. ??Underwent open reduction internal fixation on 08/29/[address]??Dr[address] Omar Rodriguez. ??Has been having uncontrolled neuropathic pain which has not responded to low-dose gabapentin, though she did not really take it as indicated. Orthopedics was consulted and they agree that this is neuropathic pain and there is no surgical intervention warranted. Patient wasstarted on gabapentin 3 times a day and the dose was increased prior to discharge. She was given IV and oral narcotics which did not seem to help with her pain. At discharge she will continue gabapentin and ibuprofen as needed. PENDING TEST RESULTS: none PROCEDURES: none IMAGING: XR left elbow: IMPRESSION: Comminuted intra-articular fracture of the distal humerus post open reduction/internal fixation. The fracture fragments are held in anatomical position and alignment by sideplate and multiple screws. No evidence of healing. No hardware complication. ?? DISCHARGE EXAM: At the time of discharge the patient was feeling better. BP (!) 101/55 Pulse 82 Temp 98.3 ??F (36.8 ??C) Resp 18 Ht 5' 2 (1.575 m) Wt 69.2 kg (152lb 9.6 oz) SpO2 93% ? No BMI 27.91 kg/m?? Wt Readings from Last 1 Encounters: 10/02/18 69.2 kg (152 lb 9.6 oz) Temp (24hrs), Av ??F (36.7 ??C), Min:97.7 ??F (36.5 ??C), Max:98.3 ??F (36.8 ??C) Body mass index is 27.91 kg/m??. GENERAL: Normocephalic, atraumatic, no apparent distress HEENT: MMM, no exudate CHEST: Moving air well bilaterally, no wheezes or crackles CARDIO: RRR, no murmurs ABD: Nondistended, BS normoactive throughout, soft, nontender EXT: MAEE, No edema, DP 2+ b/l. Left arm in brace. NEUROLOGIC: No gross focal neurological deficits though patient does have pain and unusual sensationin the ulnar distribution of her left hand and forearm. Surgical Incision Left;Posterior Elbow (Active) No Incision Date or Incision Time found. Orientation: Left;Posterior Location: Elbow Description: Prior; Left elbow repair FOLLOWUP: Discharge Procedure Orders Normal activity as tolerated Return to previous diet Continue on the same type of diet and foods as you were eating before your admission. Drink plenty of water. Discharge Disposition? Returning Home/Self Care Expected Discharge Date? 10/02/2018 Follow Up Referral Priority: Routine Referred to Provider: [facility] Number of Visits Requested: 1 CODE STATUS: Full code DISCHARGE MEDICATIONS: Current Discharge Medication List MEDICATIONS CONTINUED WITH CHANGES Details gabapentin (NEURONTIN) 300 mg oral capsule Take 2 capsules (600 mg) by mouth three times a day for 21 days. Qty: 126 capsule, Refills: 0 MEDICATIONS CONTINUED UNCHANGED Details acetaminophen (TYLENOL) 325 mg oral tablet Take 325-975 mg by mouth every 4 (four) hours as needed. LORazepam (ATIVAN) 0.5 mg oral tablet Take 0.5 mg by mouth once a day as needed. omeprazole (PRILOSEC) 20 mg oral delayed release capsule Take 20 mg by mouth once a day as needed. Take once daily before a meal. Authorized by: Catia Braxton MD Quanity: 30 tablets Refill: 2 refills by 09/20/2019 ondansetron (ZOFRAN) 4 mg oral ODT Dissolve 4 mg in mouth every 6 (six) hours as needed for nausea. Authorized by: Dominick Hickye DO Quantitiy: 10 tablets No refils oxyCODONE, immediate release, (ROXICODONE) 5 mg oral tablet Take 5 mg by mouth every 6 (six) hours as needed. potassium chloride (K-DUR) 20 mEq oral extended release tablet Take 20 mEq by mouth twice a day withbreakfast and lunch. Authorized by: Catia Hickey MD Quanity: 60 tablets No refills traZODone (DESYREL) 50 mg oral tablet Take 50 mg by mouth at bedtime as needed for Sleep. Gonzalo Tavera MD, Hospitalist Internal Medicine and Pediatrics [facility] Medicine Time: over 30 minutes documented in this encounter Discharge Instructions Discharge InstructionsJyoti Bella RN - 10/02/2018 10:18 AM CDT Medications If your provider has ordered medications for you, make sure to take your medications as prescribed. Call your doctor within 24 hours if you have any of the following symptoms: ?? Increased or unexpected swelling ?? Increased or unexpected shortness of breath ?? Sudden or unexpected weight gain or loss ?? Nausea, vomiting, and/or diarrhea Seek care immediately or call 911 if: You have any of the following signs of a heart attack: ?? Squeezing, pressure, or pain in your chest that lasts longer than 5 minutes or returns ?? Discomfort or pain in your back, neck, jaw, stomach, or arm ?? Trouble breathing ?? Lightheadedness or a sudden cold sweat, especially with trouble breathing Monitor Your Weight Weigh yourself everyday in the morning and keep a record. If your weight has increased 2 pounds overnight or 4 pounds in one week, contact your primary care provider/MD. Discharge Weight Weight: 69.2 kg (152 lb 9.6 oz) Weight: 152 lb 9.6 oz Please keep any follow-up appointments that have been made for you. Smoking and second-hand smoke exposure: If you or anyone in your home smokes, we strongly recommend that you stop for your health and that of your family. Please talk with your health care provider about your best treatment options. No matter what your age or how long you've smoked, quitting will help you live longer. For further assistanceplease call the [employer] Helpline at 3-(514)-325-TSTQ or go to their website [email or web address]. documented in this encounter Medications at Time of Discharge Medication Sig Dispensed Refills Start Date End Date acetaminophen (TYLENOL) Take 325-975 mg by 0 325 mg oral tablet mouth every 4 (four) hours as needed. LORazepam (ATIVAN) 0.5 Take 0.5 mg by mouth 0 mg oral tablet once a day as needed. omeprazole (PRILOSEC) Take 20 mg by mouth once a d ay as needed. Take once daily before a meal. 0 09/20/2018 20 mg oral delayed release capsule Authorized by: Catia Braxton MD Quanity: 30 tablets Refill: 2 refills by 09/20/2019 ondansetron (ZOFRAN) 4 Dissolve 4 mg in mouth every 6 (six) hours as needed for nausea. Authorized by: Dominick Hickey, 0 09/11/2018 mg oral ODT Quantitiy: 10 tablets No refils oxyCODONE, immediate Take 5 mg by mouth 0 release, (ROXICODONE) 5 every 6 (six) hours mg oral tablet as needed. potassium chloride Take 20 mEq by mouth twice a day with breakfast and lunch. Authorized by: Catia Hickey MD 0 019 (K-DUR) 20 mEq oral extended release tablet Quanity: 60 tablets No refills traZODone (DESYREL) 50 Take 50 mg by mouth 0 mg oral tablet at bedtime as needed for Sleep. gabapentin (NEURONTIN) Take 2 capsules (600 126 capsule 0 10/23/2018 300 mg oral capsule mg) by mouth three times a day for 21 days. documented as of this encounter Progress Notes Jyoti Bella RN - 10/02/2018 12:02 PM CDT Catia Carias 1990 [id number] P: Discharge A: Discharged ambulatory to home at 1145 escorted by self I: Discharge information and arrangements included: review of written discharge instructions, belongings list completed. R:Patient expressed understanding of information.. Andreas Paul RN - 10/02/2018 3:52 AM CDT Med-Surg Care Progression Note Type: Shift to shift summary [id number] Length of stay: 2 days Code Status: Full Code Reason for Admission: Tylenol overdose F- Feeding Progression: Tolerating Diet-Regular Fluids Progression: Saline lock - tolerating PO A- Analgesic Progression: Pt c/o pain to left elbow. Rates pain 6-7/10. Goal is 5. PRN Oxycodone 10mg PO given for pain control. . Will monitor and medicate per orders. S- Skin Progression: Total Altaf Score: 21: Maintaining skin integrity/pressure prevention, Maintaining Skin integrity and Dressing steri-strips to left elbow, wound well approximated. Safety Progression: Hendrich II Total Score: 0; Not falls risk T- Telemetry Progression: on tele with no calls Treatment Progression: Monitoring liver labs. Pain management. E- Emotional Needs Progression: Participating in cares and with flat affect. Neuro Progression: Alert and Oriented. Pt c/o numbness and tingling to left posterior arm(elbow) down to left pinky finger. R- Respiratory Needs Progression: On room air cont. to monitor H- Head OUT of Bed/Activity Progression: Ambulating well independently in room/bathroom. U- Ultimate Discharge Progression: Managed pain. Liver labs WNL. Anticipated Disposition: Plan to: Home Anticipated Equipment/Supply Needs: None G- Glycemic Control Progression: Not applicable B- Bowel and Bladder Care Progression: Stool Occurrence: 0 occurrence (10/01/2018 3:02 PM) On bowel regimen/regular. Pt voiding in toilet without difficulty. I- Indwelling/Invasive Devices Progression: PIV x2 , SL. D- DVT/Anticoagulation Progression: SCDs VS: BP 111/78 Pulse 78 Temp 97.7 ??F (36.5 ??C) Resp 16 Ht 1.575 m (5' 2) Wt 71 kg (156 lb 8 oz) SpO2 97% ? No BMI 28.62 kg/m?? Summary: Pt able to make needs known to staff. Pain to left elbow. PRN Oxycodone given. Possible DC today dependent upon liver labs and pain control. Pt states her boyfriend will give her a ride home. His number is on the whiteboard in room. Marli Girard RN - 10/01/2018 7:23 PM CDT Med-Surg Care Progression Note Type: Shift to shift summary Length of stay: 1 days Code Status: Full Code Reason for Admission: tylenol overdose F- Feeding Progression: Tolerating Diet Fluids Progression: PIV x2, both saline locked, tolerating PO, mucomyst infusion has been d/c A- Analgesic Progression: Pain has been rated consistently at 7-8 with scheduled ibpruofen and PRN oxycodone, however, pt is calm and appears to be resting comfortably S- Skin Progression: Total Altaf Score: 21: Maintaining skin integrity/pressure prevention Safety Progression: Hendrich II Total Score: 0; Not falls risk , pt independent in room T- Telemetry Progression: tele on, no calls this shift, tachycardic at times Treatment Progression: Monitoring liver labs, monitoring pain, K/mag protocol, K and Mag both replaced today' E- Emotional Needs Progression: Participating in cares and Appropriate affect Neuro Progression: Alert and Oriented R- Respiratory Needs Progression: On room air cont. to monitor H- Head OUT of Bed/Activity Progression: Ambulating well independently in room U- Ultimate Discharge Progression: see treatment progression Anticipated Disposition: Plan to: Home Anticipated Equipment/Supply Needs: None G- Glycemic Control Progression: Not applicable B- Bowel and Bladder Care Progression: Stool Occurrence: 0 occurrence (10/01/2018 3:02 PM) On bowel regimen/regular, given scheduled senna I- Indwelling/Invasive Devices Progression: PIV x2 SL D- DVT/Anticoagulation Progression: SCDs, pt has been refusing, ambulating in room often Pt has been given scheduled ibpruofen and PRN oxycodone for pain relief. Most recently she is ratingher pain at a 6, stating that it is tolerable now. Likely d/c tomorrow dependent upon liver labs andpain control. Pt states her boyfriend will be her ride home. His number is on the whiteboard in room. BP 103/62 Pulse 83 Temp 98.1 ??F (36.7 ??C) Resp 16 Ht 1.575 m (5' 2) Wt 71 kg (156 lb 8 oz) SpO2 96% ? No BMI 28.62 kg/m?? Marli Girard RN Evi Londono RN - 10/01/2018 2:19 PM CDT Pt had episode of emesis. HR up to 140's briefly. HR now 109. Given Zofran x1. Pt thinks she may have vomited her pain medications in the process. Will monitor. Criselda Coker MD - 10/01/2018 1:40 PM CDT Images from the original note were not included. GI CONSULT SERVICE PROGRESS NOTE GI Progress Note Subjective: The patient is overall feeling well. Main issue is the R arm pain. Objective: BP (!) 97/54 Pulse (!) 106 Temp 99.4 ??F (37.4 ??C) Resp 18 Ht 5' 2 (1.575 m) Wt 71 kg (156 lb 8 oz) SpO2 94% ? No BMI 28.62 kg/m?? Weight: 71 kg (156 lb 8 oz) Patient Vitals for the past 96 hrs: Weight 10/01/18 0617 71 kg (156 lb 8 oz) 09/30/18 0527 68 kg (150 lb) 09/30/18 0400 67.6 kg (149 lb 0.5 oz) General: Adult female, appears comfortable and in no acute distress HEENT: Normocephalic. Sclera anicteric. Oral mucus membranes moist. Cardiac: No lower extremity edema Chest: No increased work of breathing Abdominal: The abdomen is soft, non-distended with active bowel sounds. There are no palpable masses. No hepatosplenomegaly. There is no rigidity or guarding. Neuro: Alert and oriented, no focal abnormalities. No asterixis. Mental Status: Appropriate mood and affect. Recent Labs 09/30/18 0642 09/30/18 2302 10/01/18 0708 WBC 14.6* -- 7.0 HEMOGLOBIN 13.6 -- 11.7* MCV 102* -- 104* INR 1.7* 1.7* 1.6* Recent Labs 09/30/18 0642 09/30/18 1243 09/30/18 2301 10/01/18 0708 SODIUM 139 -- -- 137 POTASSIUM 3.7 3.3* 4.0 3.6 CHLORIDE 103 -- -- 104 CREATININE 0.33* -- -- 0.31* ANIONGAP 12.0 -- -- 5.0 GLUCOSE 146* -- -- 111* Recent Labs 09/30/18 0642 09/30/18 2301 10/01/18 0708 ALBUMIN 2.8* 2.8* 2.6* BILIRUBTOT 0.9 1.2* 1.0 BILIRUBDIR 0.45* 0.55* 0.62* ALTSGPT 737* 488* 363* ASTSGOT 3,843* 1,282* 753* ALKLNPTASE 156* 155* 150* LIPASE 360* -- 273 Acute hepatitis panel negative PROCEDURES: Additional Comments: I have reviewed the patient's new clinical lab results I have reviewed the patient's medications I have reviewed the patient's other test results including imaging Assessment: 28 y.o. female with history of ORIF of left upper extremity and acute pancreatitis of unclear etiology 11 days postop who presents with abdominal pain, nausea and vomiting found to have acute hepatitiswith AST 3843, ALT 734. Most likely unintentional tylenol OD given that taking 1500 mg tablet 6-8 times per day for the past 2 weeks. Other considerations include autoimmune hepatitis, acute viral hepatitis. She denies any herbal medications or recent antibiotics. Recommendations: - Started on NAC protocol 09/30, agree with completing the course per protocol - Daily monitoring of INR, Hepatic Panel - Follow up autoimmune makers (ordered today) - Monitor for evidence of encephalopathy - Given significant improvement in labs I expect she will continue to improve - Monitor for evidence of encephalopathy Thank you for involving me in this patient's care, please do not hesitate to call with questions or concerns. Criselda Coker MD [facility] [phone] Evi Londono RN - 10/01/2018 12:22 PM CDT Med-Surg Care Progression Note Type: Shift to shift summary Length of stay: 1 days Code Status: Full Code Reason for Admission: OD Tylenol F- Feeding Progression: Tolerating Diet and Regular Fluids Progression: Mycomyst infusion, tolerating po. No vomiting or abdominal pain. A- Analgesic Progression: Difficult pain management and morphine 2mg changed to q 4 hr. only helps for a short duration. MD added Ibuprofen. S- Skin Progression: Total Altaf Score: 20: Maintaining skin integrity/pressure prevention Safety Progression: Hendrich II Total Score: 0; Not falls risk T- Telemetry Progression: No calls. Sinus tachycardia at times. Treatment Progression: Liver labs improving. INR 1.6. spoke with poison control, meeting criteria that they will no longer follow. E- Emotional Needs Progression: Participating in cares and teary at times d/t pain Neuro Progression: Alert and Oriented R- Respiratory Needs Progression: On room air cont. to monitor H- Head OUT of Bed/Activity Progression: steady on feet. U- Ultimate Discharge Progression: Ortho signed off. GI continues to follow. LFTS and INR improving. Anticipated Disposition: Plan to: Home Anticipated Equipment/Supply Needs: None G- Glycemic Control Progression: Not applicable B- Bowel and Bladder Care Progression: Stool Occurrence: 0 occurrence (10/01/2018 9:02 AM) scheduled bowel meds. prn available as well. will need to monitor to prevent bowel obstruction. I- Indwelling/Invasive Devices Progression: Not applicable D- DVT/Anticoagulation Progression: SCDs and does not want-refusing Summary L humerous fx 08/26-severe pain. Took too much tylenol. Mycomyst infusion. LFT and INR improving. Spoke with poison control and pt meets criteria that they no longer need to follow. Next labs 1600. Pain control added ibuprofen to schedule. Most likely d/c tomorrow. Gonzalo Tavera MD - 10/01/2018 10:32 AM CDT [facility] ([facility] PROGRESS NOTE CHIEF COMPLAINT: Arm pain SUBJECTIVE: Chart reviewed. Patient continues to have pain in her left arm that basically is unchanged. She is been getting IV morphine which does not really even change it much. She tried Toradol in the past which made her nauseous. Liver function tests are improved and she remains on acetylcysteine drip. Afebrile, vital signs stable. OBJECTIVE: BP (!) 102/52 Pulse (!) 105 Temp 100.2 ??F (37.9 ??C) Resp 18 Ht 5' 2 (1.575 m) Wt 71 kg (156 lb 8 oz) SpO2 98% ? No BMI 28.62 kg/m?? O2 Delivery Source: Room Air O2 LPM: (not recorded) Wt Readings from Last 2 Encounters: 10/01/18 71 kg (156 lb 8 oz) Intake/Output Summary (Last 24 hours) at 10/01/2018 0812 Last data filed at 10/01/2018 0600 Gross per 24 hour Intake 3131 ml Output -- Net 3131 ml GENERAL APPEARANCE: She is drowsy but arousable, alert and in no acute distress. HEENT: PERRL, Oropharynx-MMM, no exudate, no LAD RESPIRATORY: Moving air well bilaterally, no wheezing CARDIOVASCULAR: RRR, no murmurs GASTROINTESTINAL: Nondistended, BS normoactive throughout, soft, nontender, no hepatosplenomegaly EXTREMITIES: MAEE, No edema, no mottling, peripheral pulses palpable. NEUROLOGIC:No focal deficits LABS: Recent Labs 09/30/18 0642 09/30/18 1243 09/30/18 2301 09/30/18 2302 10/01/18 0708 CREATININE 0.33* -- -- -- -- CALCIUMSERUM 8.6 -- -- -- -- SODIUM 139 -- -- -- -- POTASSIUM 3.7 3.3* 4.0 -- -- CARBONDIOXI 24 -- -- -- -- ANIONGAP 12.0 -- -- -- -- WBC 14.6* -- -- -- 7.0 HEMOGLOBIN 13.6 -- -- -- 11.7* HEMATOCRIT 39.9 -- -- -- 35.5* PLATELETCT 257 -- -- -- 230 INR 1.7* -- -- 1.7* 1.6* GLUCOSE 146* -- -- -- -- CULTURES: none IMAGING: XR left elbow: IMPRESSION: Comminuted intra-articular fracture of the distal humerus post open reduction/internal fixation. The fracture fragments are held in anatomical position and alignment by sideplate and multiple screws. No evidence of healing. No hardware complication. ?? PROCEDURES: none Additional comments: I reviewed the patient's new clinical lab test results. I reviewed the patient's medications. I reviewed the patient's new imaging test results. ASSESSMENT: This is a 28 y.o. female with acute hepatitis and liver failure secondary to excessive Tylenol use due to neuropathic pain following ORIF of her left elbow. PLAN: 1. Acute Hepatitis Secondary to Excess Tylenol Use: Presented as direct admission from [address] in [place] with abdominal pain and vomiting x 2 days. Upon admission temperature 99, WBC 14.6, hemoglobin 13.6, creatinine 0.33, lactic acid 1.9, INR 1.7, Acetaminophen level 4, AST 3,843, alkaline phosphatase 156, ALT 737, direct bilirubin 0.45, and lipase 360. Hepatitis panel non-reactive. Tylenol overdose was unintentional. ?? Continue Acetylcysteine drip through 6 PM tonight. Repeat labs at that time. ?? Gastroenterology consulted. Monitor on telemetry. ?? Avoid hepatic toxic medications including Tylenol. 2. Recent Distal Humerus Fracture/ Neuropraxia of Left Ulnar Nerve: Occurred on 08/26/18 secondary toa fall in the shower. Underwent open reduction internal fixation on 08/29/[address] Omar Rodriugez. Has been having uncontrolled neuropathic pain which has not responded to Gabapentin, though she did not really take it as indicated. Orthopedics was consulted and they agree that this is neuropathic pain and there is no surgical intervention warranted. ?? Continue gabapentin 300 mg 3 times daily, plan to increase tomorrow. ?? Stop IV morphine as it does not seem to be very effective, add PRN oxycodone ?? Bowel regimen ?? treating pain with PRN IV Morphine. If pain remains uncontrolled may need to consider CATALOGUE COMPILER. Consulted Orthopedics for assistance with management. Defer further imaging to Orthopedics. I'm worried about progressive or new ulnar nerve impingement or damage. Will start gabapentin 300 mg TID. 3. Recent Pancreatitis: Was admitted at [address] in [place] 09/08/2018 - 09/11/2018 for pancreatitis. Etiology was unclear. Pain was controlled and Catia was tolerating oral intake therefore she was discharged home on 09/11/2018 . 4. Gastroesophageal Reflux Disease: On Omeprazole prior to admission, continue. 5. Marijuana Abuse: Smokes marijuana 2-3 times per week. Encouraged cessation 6. Tobacco Abuse: Smokes 1 cigarette every 2 days. Encouraged cessation. No nicotine replacement at this time. 7. Leukocytosis: Upon admission WBC 14.6. Likely elevated secondary to stress. Continue to monitor. 8. Hypomagnesemia: Upon admission magnesium 1.7. Will be on potassium and magnesium protocol while admitted. ??FEN Fluid: Saline lock Electrolytes: Monitor as needed Nutrition: Regular diet Family communication: With patient directly ACCESS: peripheral IV Prophylaxis: DVT: mechanical GI: diet Disposition: Pending liver function, pain management. Hopefully tomorrow CODE STATUS: Full code Case discussed with nursing Time: 25 minutes, more than 50% spent counseling and/or in coordination of patient care. Gonzalo Tavera MD, Hospitalist Internal Medicine and Pediatrics [facility] Medicine Pager: [phone] SKIN: Surgical Incision Left;Posterior Elbow (Active) No Incision Date or Incision Time found. Orientation: Left;Posterior Location: Elbow Description: Prior; Left elbow repair NUTRITION: Carol Parker RN - 10/01/2018 6:40 AM CDT Med-Surg Care Progression Note Type: Shift to shift summary 2300 - 0700 Length of stay: 1 days Code Status: Full Code Reason for Admission: Tylenol overdose F- Feeding Progression: Tolerating Diet, regular diet Fluids Progression: Mycomyst infusion, tolerating po A- Analgesic Progression: Difficult pain management, given prn morphine x2 and ice pack to left elbow, lavender patch -- minimal relief. Patient sleeping between cares. S- Skin Progression: Total Altaf Score: 20: Maintaining skin integrity/pressure prevention, repositions self in bed Safety Progression: Hendrich II Total Score: 0; Not falls risk T- Telemetry Progression: on tele, no calls this shift. Has been tachy. Treatment Progression: trending LFT labs, pain management, mycomyst infusing, tele E- Emotional Needs Progression: Participating in cares and Appropriate affect Neuro Progression: Alert and Orientedx3 R- Respiratory Needs Progression: On room air cont. to monitor H- Head OUT of Bed/Activity Progression: steady on feet, independent in room U- Ultimate Discharge Progression: ortho signed off. GI following -- trending LFT labs. Anticipated Disposition: Plan to: Home Anticipated Equipment/Supply Needs: None G- Glycemic Control Progression: Not applicable B- Bowel and Bladder Care Progression: Stool Occurrence: 0 occurrence (10/01/2018 2:02 AM) On bowel regimen/regular I- Indwelling/Invasive Devices Progression: PIV x2, both patent D- DVT/Anticoagulation Progression: SCDs, refused this shift. Summary: Patient obtained left humerus fracture on 08/26 -- continues to have severe pain to elbow, prn morphine given q3h; ice pack and lavender patch given as well. Patient describes it as nerve pain. Denies abdominal pain, no nausea. Spoke to poison control -- LFT remain elevated, orders to continue mucomyst for another 16 hours placed. Poisonn control will call back after 14hours to recheck labs. On K/Mg protocol - both at goal now. Carol Parker RN - 10/01/2018 3:50 AM CDT 10/01/18349 MD/Provider Notify Reason MD/Provider Notified Patient Update (BP 93/49, Temp 100.2) MD/Provider's Name Doll Time Notified 349 Erika Silver DO - 10/01/2018 12:38 AM CDT Cross Cover Note: Received page from RN. Per Poison Control, continue NAC infusion for another 16 hours with labs to be drawn after 14 hours. Ordered. Erika Silver DO Acute Care Medicine Carol Parker RN - 10/01/2018 12:29 AM CDT Spoke with poison control on phone, they are requesting an additional 16 hour infusion of mucomyst as LFT's are not at goal -- with labs to be drawn hour 14 into infusion. paged regarding phone call. Marli Girard RN - 09/30/2018 7:57 PM CDT Med-Surg Care Progression Note Type: Shift to shift summary Length of stay: 0 days Code Status: Full Code Reason for Admission: tylenol overdose F- Feeding Progression: Tolerating Diet, pt is now on a regular diet and is tolerating well Fluids Progression: Continue bolus and IVF, pt received IV bolus at beginning of shift d/t BP of 82/60, after bolus BP is 95/60, pt also on mucomyst infusion d/t tylenol overdose A- Analgesic Progression: Pt complains of pain in left elbow and arm d/t ORIF that occurred about a month ago for left elbow fx. PRN morphine, 4mg, has been given every 3 hour, as often as it can be given, d/t pt rating pain from 8-10. Pt crying at times d/t pain but other times appearing to rest comfortably as she is using her phone, rating her pain at the same level in both scenarios S- Skin Progression: Total Altaf Score: 21: Maintaining skin integrity/pressure prevention Safety Progression: Hendrich II Total Score: 0; Not falls risk , pt has been ambulating independently in room without problems T- Telemetry Progression: Tele on with no calls this shift, per report, tele called multiple times this AM for tachycardia Treatment Progression: K/Mag protocol, K was replaced this shift, waiting for new labs, mag at goal, monitor pain, ADAT E- Emotional Needs Progression: Participating in cares and Appropriate affect Neuro Progression: Alert and Oriented R- Respiratory Needs Progression: On room air cont. to monitor H- Head OUT of Bed/Activity Progression: Ambulating well independently in room U- Ultimate Discharge Progression: see treatment progression Anticipated Disposition: Plan to: Home Anticipated Equipment/Supply Needs: None G- Glycemic Control Progression: Not applicable B- Bowel and Bladder Care Progression: Stool Occurrence: 0 occurrence (09/30/2018 5:02 PM) On bowel regimen/regular I- Indwelling/Invasive Devices Progression: PIV x2, one currently infusing mucomyst, one SL D- DVT/Anticoagulation Progression: Not [facility] occurring because of pt taking 1500mg of tylenol 6-8 times a day for the past week for pain in left arm. Pt is currently on mucomyst for overdose and has PRN morphine for pain that has been given as often as is is ordered, every 3 hours. Pt rating pain between 8-10 despite morphine. was notified this AM. K replaced 2x today, waiting for redraw. LFTs andINR scheduled to be drawn at 2300 tonight. Per previous note, someone from poison control will callback around 0000 tonight to verify labs BP 95/60 Pulse (!) 117 Temp 98.3 ??F (36.8 ??C) Resp 20 Ht 1.575 m (5' 2) Wt 68 kg (150 lb) SpO2 94% ? No BMI 27.44 kg/m?? Marli Girard RN Ciara Booker RN - 09/30/2018 2:44 PM CDT 09/30/18 1443 MD/Provider Notify Reason MD/Provider Notified Other (see note) (VS-82/60, HR 121. Pain is uncontrollable) MD/Provider's Name Genet Time Notified 1443 Ciara Booker RN Ciara Booker RN - 09/30/2018 2:30 PM CDT 09/30/18 1430 MD/Provider Notify Reason MD/Provider Notified Other (see note) (Tele called, pt is tachy up into 130s. ) MD/Provider's Name Ralph Time Notified 1430 Ciara Booker RN Ciara Booker RN - 09/30/2018 2:27 PM CDT Med-Surg Care Progression Note Type: Shift to shift summary Length of stay: 0 days Code Status: Full Code Reason for Admission: Tylenol overdose. F- Feeding Progression: Tolerating Diet, clear liquids, ADAT. Fluids Progression: IVF running and tolering PO fluids. A- Analgesic Progression: Difficult pain management. PRN morphine dose increased this shift. PRN morphine give almost every hour this shift. Scheduled gabapentin started this shift. S- Skin Progression: Total Altaf Score: 20: Maintaining skin integrity/pressure prevention Safety Progression: Hendrich II Total Score: 1; Not falls risk T- Telemetry Progression: On tele, multiple calls this shift of tachycardia from 120-130s. 1L bolus administered this AM d/t tachycardia per ACM. Has not been ordered by current hospitalists. Treatment Progression: Acytylcystine IVF continues. Bag #3 started at 0900 this AM, will run until 0000. Difficult pain managament, see analgesic progression. Advance diet at dinner to regular if pt is feeling alright. Xray to left arm this afternoon, awaiting resutls. On K/Mg protocol, both replacedthis shift, Mg now at goal, K+ has been added onto last lab draw, awaiting results. Ortho has been consulted and has signed off. E- Emotional Needs Progression: Participating in cares Neuro Progression: Alert and Oriented R- Respiratory Needs Progression: On room air cont. to monitor H- Head OUT of Bed/Activity Progression: Ambulating well independently. U- Ultimate Discharge Progression: See treatment progression. Anticipated Disposition: Plan to: Home Anticipated Equipment/Supply Needs: None G- Glycemic Control Progression: Not applicable B- Bowel and Bladder Care Progression: Stool Occurrence: 0 occurrence (09/30/2018 9:02 AM) On bowel regimen/regular, continent. I- Indwelling/Invasive Devices Progression: PIV x 2. D- DVT/Anticoagulation Progression: Not applicable Spoke with Dung from [employer] this AM. He wants us to check LFTs and INR at 2300 tonight, these have been scheduled. Someone from [employer] will call back around 0000 tonight to verify theselabs with us. VS have been unstable most of day with pt being somewhat hypotensive and tachycardic. Paged hospitalists multiple times, awaiting answer. Pt is not experiencing any SOB, chest pain, lightheadedness. States her pain in her arm is 8.5/10. PRN morphine given multiple times from Q 1 H order without much im provement. MARIAA Engel RN Aaliyah Mistry RN - 09/30/2018 10:35 AM CDT Page out to MD to update on patient's un-controlled left pain with Morphine. Patient in tears Ciara Booker RN - 09/30/2018 10:12 AM CDT 09/30/18 1011 MD/Provider Notify Reason MD/Provider Notified Other (see note) (Poison control called and wants LFTs and INRs drawn at 2300) MD/Provider's Name Ramler Time Notified 1011 Ciara Booker RN Ciara Booker RN - 09/30/2018 10:08 AM CDT Spoke with Dung from poison control, he was checking on pt. Says we do not need to check APAP again. Says LFTs and INR should be checked again at 2300 on 09/30/18, and poison control will call back around 0000 10/01/18 to verify lab results. Placed lab orders for this time. Notified MD as well. iCara Booker RN Ciara Booker RN - 09/30/2018 9:44 AM CDT 09/30/18 0943 MD/Provider Notify Reason MD/Provider Notified Pain MD/Provider's Name Ramler Time Notified 0943 Have given PRN morphine x 2 and pt states pain is not getting any better. Amy Talamantes RN - 09/30/2018 6:32 AM CDT P. Admission A. Condition on Admit: alert. Patient/Family Concerns: Patient expressed concern about pain relief. I. Initial Interventions included: notified MD of patient arrival. Orientation to Unit: Patient oriented to how to call for help, name of assigned laboratory animal caretaker, initialphysician orders, hourly rounding procedures, belongings checklist, unit and plan of care. R. Patient expressed understanding of information.. Med-Surg Care Progression Note Type: Admission summary Length of stay: 0 days Code Status: Full Code Reason for Admission: Tylenol overdose F- Feeding Progression: Encourage PO Clear liquid, ADAT Fluids Progression: Encourage PO, continue IV infusion of mucomyst A- Analgesic Progression: Difficult pain management Pain in LUE; IV morphine given x 1 S- Skin Progression: Total Altaf Score: (not recorded): Maintaining skin integrity/pressure prevention and Surgical Incision: LUE healing Safety Progression: Hendrich II Total Score: (not recorded); Not falls risk T- Telemetry Progression: Telemetry can be discontinued when meets criteria Treatment Progression: Continued mucomyst IV infusion; pain management E- Emotional Needs Progression: Participating in cares Neuro Progression: Alert and Oriented R- Respiratory Needs Progression: On room air cont. to monitor H- Head OUT of Bed/Activity Progression: Ambulating well independently; immobilizer on LUE U- Ultimate Discharge Progression: poision control needs to clear; gastroenterology to see Anticipated Disposition: Plan to: Home Anticipated Equipment/Supply Needs: None G- Glycemic Control Progression: Not applicable B- Bowel and Bladder Care Progression: No data recorded On bowel regimen/regular I- Indwelling/Invasive Devices Progression: PIV infusing D- DVT/Anticoagulation Progression: bleed risk Robby Conrad MD - 09/30/2018 6:20 AM CDT Needs H&P in AM I did see pt on arrival as direct admission to help ensure stability. The patient is direct admission from [facility] with acute hepatitis likely due to excess ingestion over the past week. The patient reports developing abdominal pain, nausea, and vomiting over the past 2 days. Approximately a month ago, patient had ORIF of left upper extremity. Patient was taking oxycodone for pain control at that time as well as occasionally takes lorazepam for anxiety. Approximately week to 10 days after her surgery, patient was hospitalized for acute pancreatitis. It is unclear as to etiology of her pancreatitis at that time, but symptoms seem to resolve and patient was discharged. Patient was subsequently switched to Percocet for pain control and states she was taking her Percocet as directed or less frequently but was also taking additional Tylenol intermittently. Patient notes that approximately a week ago she stopped taking Percocet altogether and is just been taking Tylenol for pain although her pain has been steadily increasing. Patient reports that she was taking 3 tabelts of 500 mg Tylenol at least 6-8 times a day for the last week. She reports that the last time she took Tylenol was around 11:00 AM on . Per labs from [facility] LFTs are elevated reveals ALt of 624, AST of 3,955, and ALKP of 186. Total bilirubin is 1.2. Creatinine is 0.56, sodium is 136, HCO3 of 16, and potassium 4.5. INR is 1.5. Acetaminophem level is < 3. Lipase is 78.5. Serum test is negative. Lactic acid level is 2.9. Suspect livery dysfunction is contributing lactic acidosis at outside facility. [facility] Physician discussed case w/ GI Physician Dr. Davis who recommended pt be transferred [facility] as direct admission and be started on N-acetylcysteine w/ plan for GI consult in AM. The patient reports that her abdominal pain is improved and is currently minimal. Pt is alert and able to answer questions w/o difficulty. Pt is not confused. Pt has very mild diffuse tenderness on abdominal exam w/o guarding or rebound tenderness. Bowel sounds present. BP is 104/64 and MAP is 77. HR is 110. I did discuss case w/ Poison Control who did not have any recommendations beyond continuing N-acetylcysteine per protocol. Preliminary orders pending evalaution by Admitting Day Hospitalist Team: -GI consult in AM. -Discussed how much Acetylcysteine has received so far since being started on it at [facility] in conjuction with corporate staff accountant and Pharmacist. Has received initial bag of Acetylcysteine and is in process ofreceiving 2nd bag of Acetylcysteine. Order for Acetylcysteine to be placed per Pharmacy per protocol. -1 L bolus of IV NS. Will defer further IV fluids to Admitting Hospitalist Team. -Telemetry. -Zofran PRN. -1-2 mg of IV Morphine Q 1 H PRN. -Avoiding hepatic toxic medications including Tylenol. -Clear liquid diet and advance diet as tolerated. -Checking LFTs, BMP, CBC, lactic acid, INR,acetaminophen, magnesium, and Hepatitis panel. -Telemetry. -Full code. Confirmed w/ pt. -Sequential knee sleeves and ambulate TID. -Q 4 H vitals. -Potassium and magnesium replacement protocol w/ goal of 4.0 and 2.0 respectively. ADDENDUM: I did sign patient out to Dr. Tavera in AM. Magaly Forde RN - 09/30/2018 3:39 AM CDT Received report from [facility] in [place]. 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 LFT's: AST 3955 ALT 624 Alk Phos 186 Lactate 2.9 Pt received 1 liter LR in the ED and the N-acetyl cysteine was started. First dosing was 01438 mg in200 ml, completed in the ED, and 3380mg in 500 ml was initiated before transport. documented in this encounter H&P Notes Gonzalo Tavera MD - 09/30/2018 9:58 AM CDT [facility] ([facility] ADMISSION HISTORY AND PHYSICAL Patient Name: Catia Carias Address: [address] [place] [id number] Age: 28 y.o. Sex: Female Admission Date/Time: 09/30/2018 4:11 AM Primary Care Provider: [facility] Admitting provider: [facility]-Hospitalist, Dr. Gonzalo Tavera Informant: patient as well as chart review. CHIEF COMPLAINT: Abdominal Pain HPI: Catia Carias is a 28 y.o. female with a past medical history significant for attention deficit disorder, anxiety and depression, Left elbow fracture, marijuana abuse, pancreatitis, and tobaccoabuse who presented with abdominal pain x 2 days. Catia states that she fell in the shower on 08/26 and tried to break her fall with her Left arm. She sustained a Left distal humerus fracture from the fall therefore she underwent open reduction internal fixation on 08/29/[address] Catia states that she was discharged home with twenty Oxycodone 5 mg tables for pain control.She was also advised to take up to 4,000 mg per day of Tylenol. She followed up with Orthopedics on 09/07/2018. X-rays during that visit showed the fracture and hardware were in place. Catia was experiencing neuropraxia of the Left ulnar nerve secondary to adhesions and scar tissue build up. Catiawas advised to moving Left elbow to break up the adhesions. She was prescribed Gabapentin 100 mg at bedtime. She was also advised to start taking Tylenol every 4-6 hours for her pain. If the pain did not improve then she was advised to start taking Oxycodone. Catia ended up being admitted at [address] 09/08/18 - 09/11/18 for acute pancreatitis which initially required Morphine CATALOGUE COMPILER for pain c ontrol. Catia followed up in primary care clinic on 09/30/2018 due to heartburn. She followed up with Orthopedics on 09/21/2018 for Left distal humerus fracture. She was advised to start Occupational Therapy and to continue to wear her brace. She continue to complain of significant nerve pain in her Left pain. She states that it is a constant shooting pain that starts at her elbow and radiates to her hand. There are spasms where the pain is significantly worse. She rates the pain 8/10. She also states that she has numbness in her Left 5th finger. She was advised to start taking Oxycodone prior to bed to help with the pain. She was prescribed 6 tables of Oxycodone and states that she has 1 tablet left. She was only taking 1 tablet per day but was taking it during the day rather than at bedtime because she needed the pain to subside so that she could complete her schoolwork. Additionally, she wasadvised to take a maximum of 12 Acetaminophen per day and follow up with Orthopedics in 4 weeks for repeat x- ray. She states that the Oxycodone and Tylenol would only relieve her pain for about 30 minutes therefore she was taking another dose of Tylenol about an hour after taking the first dose. She states that she took 1,500 mg about 6 times per day for the past 1 week. Yesterday she developed abdominal pain and vomited 6 times therefore she went to [place] [address] emergency department to be evaluated. Mario Alberto kang states that she only has abdominal pain when she is vomiting. She vomited multiple times in the emergency department. She was transferred to [facility] for further evaluation by Gastroenterology and states that she also vomited in the ambulance. She denies fever, chills, shortnessof breath, chest pain, hematuria, and melena. PAST MEDICAL HISTORY: Past Medical History: Diagnosis Date ??? ADD (attention deficit disorder) ??? GERD (gastroesophageal reflux disease) ??? Left elbow fracture ??? Marijuana abuse ??? Pancreatitis 09/08/2018 ??? Tobacco abuse PAST SURGICAL HISTORY: Past Surgical History: Procedure Laterality Date ??? FX REDUCTION OF DISTAL HUMERUS Left 08/29/2018 ORIF PRIOR TO ADMISSION MEDICATIONS: Prior to Admission Medications Prescriptions Last Dose Informant Patient Reported? Taking? acetaminophen (TYLENOL) 325 mg oral tablet Yes Yes Sig: Take 325 mg by mouth every 4 (four) hours as needed. ibuprofen 600 mg oral tablet Yes Yes Sig: Take 600 mg by mouth every 6 (six) hours as needed (Maximum of 3200 mg in 24 hours). Authorizedby: Dominick Wong DO omeprazole (PRILOSEC) 20 mg oral delayed release capsule Yes Yes Sig: Take 20 mg by mouth once daily. Take once daily before a meal. Authorized by: Catia Braxton MD Quanity: 30 tablets Refill: 2 refills by 09/20/2019 ondansetron (ZOFRAN) 4 mg oral ODT Yes Yes Sig: Dissolve 4 mg in mouth every 6 (six) hours as needed for nausea. Authorized by: Dominick Hickey DO Quantitiy: 10 tablets No refils potassium chloride (K-DUR) 20 mEq oral extended release tablet Yes Yes Sig: Take 20 mEq by mouth twice a day with breakfast and lunch. Authorized by: Catia Hickey MD Quanity: 60 tablets No refills Facility-Administered Medications: None ALLERGIES: Azithromycin FAMILY HISTORY: Family history reviewed with patient. No family history on file. Family Status Relation Name Status ??? Mo Alive ??? Fa Alive ??? Sis Alive ??? Bro Alive ??? Bro Alive ??? Bro Alive ??? Sis Alive SOCIAL HISTORY: Social History Socioeconomic History ??? Marital status: Single Spouse name: Not on file ??? Number of children: Not on file ??? Years of education: Not on file ??? Highest education level: Not on file Occupational History ??? Not on file Social Needs ??? Financial resource strain: Not on file ??? Food insecurity: Worry: Not on file Inability: Not on file ??? Transportation needs: Medical: Not on file Non-medical: Not on file Tobacco Use ??? Smoking status: Current Some Day Smoker Packs/day: 0.10 Years: 5.00 Pack years: 0.50 Types: Cigarettes Start date: 2013 ??? Smokeless tobacco: Never Used ??? Tobacco comment: Currently smokes 1 cigarettes every 2 days. Substance and Sexual Activity ??? Alcohol use: Yes Alcohol/week: 8.0 standard drinks Types: 4 Glasses of wine, 4 Cans of beer per week Comment: 2-3 drinks 4 times per week ??? Drug use: Yes Types: Marijuana ??? Sexual activity: Not on file Lifestyle ??? Physical activity: Days per week: Not on file Minutes per session: Not on file ??? Stress: Not on file Relationships ??? Social connections: Talks on phone: Not on file Gets together: Not on file Attends protestant service: Not on file Active member of club or organization: Not on file Attends meetings of clubs or organizations: Not on file Relationship status: Not on file ??? Intimate partner violence: Fear of current or ex partner: Not on file Emotionally abused: Not on file Physically abused: Not on file Forced sexual activity: Not on file Other Topics Concern ??? Not on file Social History Narrative Single. Lives with boyfriend in an apartment. At baseline does not use assistive devices. Immunizations There is no immunization history on file for this patient. REVIEW OF SYSTEMS: A comprehensive ROS was obtained. General: No fever, chills. No weight changes, anorexia or fatigue. No lightheadedness. HEENT: No vertigo, hearing or vision changes. Pulmonary: No dyspnea or cough. No history of asthma or chronic obstructive pulmonary disease. Cardiovascular: No chest pain or palpitations. No edema or claudication. No history of myocardial infarction or arrhythmia. Gastrointestinal: Abdominal pain, nausea, and vomiting. No diarrhea or constipation. No melena or hematochezia. Last bowel movement 09/28/2018. Genitourinary: No frequency, dysuria, or hematuria. Neurologic: No headaches. No history of seizures or stroke. Musculoskeletal: Left arm pain. Skin: No rashes or unexplained bruising. Endocrinology: No Diabetes or thyroid disease history. Remainder of review of symptoms otherwise negative, with exceptions as above in HPI. PHYSICAL EXAM: Temp (24hrs), Av ??F (37.2 ??C), Min:99 ??F (37.2 ??C), Max:99 ??F (37.2 ??C) BP (!) 94/50 Pulse (!) 133 Temp 99 ??F (37.2 ??C) Resp 17 Ht 5' 2 (1.575 m) Wt 68 kg (150lb) SpO2 97% ? No BMI 27.44 kg/m?? O2 Delivery Source: Room Air Wt Readings from Last 2 Encounters: 09/30/18 68 kg (150 lb) Body mass index is 27.44 kg/m??. General Appearance: Patient is alert and oriented. In no apparent distress. Answers questions appropriately. HEENT: Head: Normocephalic, Atraumatic. Eyes: Pupils equal, round, and reactive to light. Extraocular movements intact. Oropharynx: Mucosa moist, no lesions. Neck: Supple, no thyromegaly or adenopathy. RESPIRATORY: Lung sounds are clear to ausculation bilaterally without wheezes, rhonchi, or rales. CARDIOVASCULAR: Heart tones are regular of rhythm and rate. No murmurs, gallops or rubs noted. Extremities are warm and well perfused. GASTROINTESTINAL: Soft, non-tender, non-distended, no hepatosplenomegaly. Bowel sounds are present. EXTREMITIES: Distal pulses are palpable. No pedal edema present. SKIN: Warm, dry, no rashes or ecchymoses. No mottling of skin. Left elbow with surgical incision andsteri-strips in place. No drainage. Appears to be healing well. NEUROLOGIC: Normal muscle tone, bulk and strength. LABS: Personally reviewed laboratory results as listed below. Results for orders placed or performed during the hospital encounter of 09/30/18 (from the past 24 hour(s)) CBC / Diff Result Value Ref Range WBC 14.6 (H) 4.3 - 10.8 K/uL RBC 3.90 (L) 4.20 - 5.40 M/uL HEMOGLOBIN 13.6 12.0 - 16.0 gm/dL HEMATOCRIT 39.9 36.0 - 48.0 % MCV 102 (H) 80 - 100 fl MCH 35 (H) 27 - 33 pg MCHC 34 33 - 36 gm/dL RDW 13.2 11.5 - 14.5 % PLATELET COUNT 257 150 - 400 K/UL MPV 9.7 6.5 - 12 PMN % 90.9 % IG% 0.3 <=1.0 % LYMPH % 5.1 % MONO % 3.2 % EOS % 0.3 % BASO % 0.2 % PMN ABSOLUTE 13.28 (H) 1.80 - 7.80 K/uL IG ABSOLUTE 0.05 K/uL LYMPH ABSOLUTE 0.74 (L) 1.00 - 4.00 K/uL MONO ABSOLUTE 0.47 0.00 - 1.00 K/uL EOS ABSOLUTE 0.04 0.00 - 0.45 K/uL BASO ABSOLUTE 0.03 0.00 - 0.20 K/uL NUCL RBC % 0.0 0.0 - 0.0 /100 WBC NUCL RBC ABSOLUTE 0.00 K/uL Basic Metab Profile Result Value Ref Range SODIUM 139 136 - 145 mmol/L POTASSIUM 3.7 3.5 - 5.1 mmol/L CHLORIDE 103 98 - 112 mmol/L CARBON DIOXIDE 24 21 - 32 mmol/L BUN (UREA NITRO) 6 (L) 7 - 24 mg/dL CREATININE 0.33 (L) 0.55 - 1.02 mg/dL EST GFR (MDRD) >60 >60 mL/min EST GFR IF AM >60 >60 mL/min GLUCOSE 146 (H) 74 - 106 mg/dL CALCIUM, SERUM 8.6 8.5 - 10.1 mg/dL ANION GAP 12.0 0.0 - 15.0 mmol/L Magnesium Result Value Ref Range Magnesium 1.7 (L) 1.8 - 2.4 mg/dL Lactic Acid Result Value Ref Range LACTIC ACID 1.9 0.7 - 2.1 mmol/L Liver Profile Result Value Ref Range ALT 737 (H) 12 - 68 IU/L ALKALINE P'TASE 156 (H) 45 - 117 IU/L AST (SGOT) 3,843 (H) 12 - 37 IU/L PROTEIN TOTAL 5.2 (L) 6.4 - 8.2 g/dL ALBUMIN 2.8 (L) 3.4 - 5.0 g/dL BILIRUBIN-DIRECT 0.45 (H) 0.05 - 0.24 mg/dL BILIRUBIN-TOTAL 0.9 0.2 - 1.0 mg/dL Lipase Result Value Ref Range LIPASE 360 (H) 73 - 350 IU/L Acetaminophen Result Value Ref Range ACETAMINOPHEN (TYLENOL) 4 (L) 10 - 30 ug/mL Protime / INR Result Value Ref Range PROTIME 18.7 (H) 10.0 - 13.0 sec. INR 1.7 (H) 1.0 - 1.2 Hepatitis A/B/C Panel Result Value Ref Range HEP BC IGM DELBERT Non-Reactive Non-Reactive HEP A IGM DELBERT Non-Reactive Non-Reactive HEP BS ANTIGEN Non-Reactive Non-Reactive Hepatitis C Antibody Non-Reactive Non-Reactive CULTURES: None IMAGING: None PROCEDURES: None ASSESSMENT: Catia Carias is a 28 y.o. female with acute hepatitis secondary to excess Tylenol use who was admitted on 09/30/2018. PLAN: 1. Acute Hepatitis Secondary to Excess Tylenol Use: Presented as direct admission from [address] in [place] with abdominal pain and vomiting x 2 days. Upon admission temperature 99, WBC 14.6, hemoglobin 13.6, creatinine 0.33, lactic acid 1.9, INR 1.7, Acetaminophen level 4, AST 3,843, alkaline phosphatase 156, ALT 737, direct bilirubin 0.45, and lipase 360. Hepatitis panel non-reactive. Tylenol overdose was unintentional. Has received 2 bags of Acetylcysteine and 1 L of IV fluids. Continue Acetylcysteine and repeat liver function tests and INR at 11 PM per Poison Control recommendation. Gastroenterology consulted. Monitor on telemetry. Avoid hepatic toxic medications including Tylenol.Clear liquid diet, advance as tolerated. 2. Recent Distal Humerus Fracture/ Neuropraxia of Left Ulnar Nerve: Occurred on 08/26/18 secondary toa fall in the shower. Underwent open reduction internal fixation on 08/29/[address] Omar Rodriguez. Has been having uncontrolled neuropathic pain which has not responded to Gabapentin. Pain has minimally improved prior to admission with Percocet or Oxycodone. Treating pain with PRN IV Morphine. If pain remains uncontrolled may need to consider CATALOGUE COMPILER. Consulted Orthopedics for assistance with management. Defer further imaging to Orthopedics. I'm worried about progressive or new ulnar nerve impingement or damage. Will start gabapentin 300 mg TID. 3. Recent Pancreatitis: Was admitted at [address] in [place] 09/08/2018 - 09/11/2018 for pancreatitis. Etiology was unclear. Pain was controlled and Catia was tolerating oral intake therefore she was discharged home on 09/11/2018 . 4. Gastroesophageal Reflux Disease: On Omeprazole prior to admission, continue. 5. Marijuana Abuse: Smokes marijuana 2-3 times per week. Encouraged cessation 6. Tobacco Abuse: Smokes 1 cigarette every 2 days. Encouraged cessation. No nicotine replacement at this time. 7. Leukocytosis: Upon admission WBC 14.6. Likely elevated secondary to stress. Continue to monitor. 8. Hypomagnesemia: Upon admission magnesium 1.7. Will be on potassium and magnesium protocol while admitted. Fluid, Electrolytes and Nutrition: Fluids: Oral Electrolytes: Monitor Nutrition: Clear Liquids Prophylaxis: Deep Vein Thrombosis: Mechanical only. Gastrointestinal: Omeprazole. Pulmonary: Up to chair, ambulate when able. Code Status: Full Access: Peripheral IV Disposition: Family Communication: None. Nurse Communication: I discussed patient care with Aaliyah at bedside. Anticipated Length of Stay: 2 days with earliest anticipated discharge on 10/02/2018. IP - Anticipated LOS >2Midnights due to acuity of clinical presentation requiring inpatient level of care Criteria for Discharge: Liver function tests improved and tolerating oral intake. Home Medications Verification Pending Time: 70 minutes I have reviewed the case with Dr. Tavera on 09/30/2018, who will also see the patient in a shared visit. The assessment and plan for this patient is the product of our joint decision making. Kimberly Rosas PA-C [facility] Medicine Service Pager: [phone] ADDENDUM: Chart reviewed. Patient seen and examined bedside. Discussed case with Ralph RAMIREZ. Agree with elements of history, physical exam and assessment as outlined above. Briefly, this is a 28 y.o. female with unintentional tylenol overdose and liver failure in the setting of uncontrolled neuropathic pain (ulnar distribution) following ORIF of left elbow 1 month ago. Neuropathic pain has been worsening over the past week, concerning for progressive or new unlar nerve impingement. Orthopedics and GI consulted, appreciate assistance. Plan per above, my changes reflectedin BOLDFACE. Time: 70 minutes Gonzalo Tavera MD, Hospitalist Internal Medicine and Pediatrics [facility] Medicine Pager: [phone] documented in this encounter Consult Notes Xuan Block APRN, EMPLOYMENT COACH - 09/30/2018 2:24 PM CDTAssociated Order(s): CONSULT ORTHOPEDIC SURGERY ORTHOPEDIC CONSULT CHIEF COMPLAINT: left arm nerve pain HISTORY of PRESENT ILLNESS: Catia Carias is a 28 y.o. year old female who had an orif of her left distal humerus in [place] on 08/29/18. She has had 2 f/u appts with her surgeon since surgery. After her last dressing change where the salty wrap was removed last week, she started having pain along the ulnar nerve distribution. The pain has been intermittent over the last week, but lasts a long time when it comes. States nothing makes it worse or better. She describes pain as shooting from her elbow to her hand. ALLERGIES: Allergies Allergen Reactions ??? Azithromycin Nausea Nausea and vomiting. MEDICATIONS: No current facility-administered medications on file prior to encounter. Current Outpatient Medications on File Prior to Encounter Medication Sig Dispense Refill ??? acetaminophen (TYLENOL) 325 mg oral tablet Take 325-975 mg by mouth every 4 (four) hours as needed. ??? gabapentin (NEURONTIN) 100 mg oral capsule Take 100 mg by mouth at bedtime. ??? LORazepam (ATIVAN) 0.5 mg oral tablet Take 0.5 mg by mouth once a day as needed. ??? omeprazole (PRILOSEC) 20 mg oral delayed release capsule Take 20 mg by mouth once a day as needed. Take once daily before a meal. Authorized by: Catia Braxton MD Quanity: 30 tablets Refill: 2 refills by 09/20/2019 ??? ondansetron (ZOFRAN) 4 mg oral ODT Dissolve 4 mg in mouth every 6 (six) hours as needed for nausea. Authorized by: Dominick Hickey, Quantitiy: 10 tablets No refils ??? oxyCODONE, immediate release, (ROXICODONE) 5 mg oral tablet Take 5 mg by mouth every 6 (six) hours as needed. ??? potassium chloride (K-DUR) 20 mEq oral extended release tablet Take 20 mEq by mouth twice a day with breakfast and lunch. Authorized by: Catia Hickey MD Quanity: 60 tablets No refills ??? traZODone (DESYREL) 50 mg oral tablet Take 50 mg by mouth at bedtime as needed for Sleep. PAST MEDICAL HISTORY: Past Medical History: Diagnosis Date ??? ADD (attention deficit disorder) ??? GERD (gastroesophageal reflux disease) ??? Left elbow fracture ??? Marijuana abuse ??? Pancreatitis 09/08/2018 ??? Tobacco abuse PAST SURGICAL HISTORY: Past Surgical History: Procedure Laterality Date ??? FX REDUCTION OF DISTAL HUMERUS Left 08/29/2018 ORIF FAMILY HISTORY: No family history on file. SOCIAL HISTORY: Social History Tobacco Use ??? Smoking status: Current Some Day Smoker Packs/day: 0.10 Years: 5.00 Pack years: 0.50 Types: Cigarettes Start date: 2013 ??? Smokeless tobacco: Never Used ??? Tobacco comment: Currently smokes 1 cigarettes every 2 days. Substance Use Topics ??? Alcohol use: Yes Alcohol/week: 8.0 standard drinks Types: 4 Glasses of wine, 4 Cans of beer per week Comment: 2-3 drinks 4 times per week ??? Drug use: Yes Types: Marijuana REVIEW OF SYSTEMS: 12 point review of systems was performed, and is negative except for HPI. PHYSICAL EXAMINATION: Vitals: 09/30/18 0400 09/30/18 0527 09/30/18 1045 BP: 104/64 (!) 94/50 Pulse: (!) 110 (!) 133 Resp: 18 17 Temp: 99 ??F (37.2 ??C) SpO2: 94% 97% Weight: 67.6 kg (149 lb 0.5 oz) 68 kg (150 lb) Height: 5' 2 (1.575 m) Temp (24hrs), Av ??F (37.2 ??C), Min:99 ??F (37.2 ??C), Max:99 ??F (37.2 ??C) General: Alert and oriented x3. No acute distress. Appears somewhat drowsy. Breathing is unlabored. RUE: No signs of compartment syndrome. No tenderness to palpation. No obvious deformities. Painfree ROM. Motor strength and sensation grossly intact. Skin intact. +2 radial pulse. LUE: tender to palpation over lateral forearm and elbow. No signs of compartment syndrome. No tenderness to palpation. No obvious deformities. Painfree ROM. Motor strength intact in left fingers and wrist. Weak ROM of elbow Skin intact. Numbness in pinky and lateral ring finger. Some steri-strips remain on elbow. 2+ radial pulse. X-rays: Xrays were reviewed and interpreted by me. Labs: Reports were reviewed. ASSESSMENT: Intermittent left arm pain along the ulnar nerve distribution with numbness in pinky and ring finger. Hardware appears stable on xray. PLAN: Unfortunately there is no intervention at this time to eliminate her nerve pain. She can f/u with her primary ortho surgeon after d/c, or Dr. Orta. She thinks she will f/u with her primary surgeon. Ortho will sign off. Please call with questions or concerns. Discussed with Hospital medicine. Xuan Block APRN, EMPLOYMENT COACH Felicita Dia PA-C - 09/30/2018 10:19 AM CDTAssociated Order(s): CONSULT GASTROENTEROLOGY Images from the original note were not included. GI CONSULT SERVICE CONSULT NOTE Patient Name: Catia Carias Admission Date/Time: 09/30/2018 4:11 AM [facility] Request[facility] Physician: Dr. Conrad [facility] Attending Physician: [facility]-Hospitalist I was asked to see this patient at the request of Dr. Conrad for evaluation of acute hepatitis. REASON FOR CONSULTATION: Acute hepatitis CC: abdominal pain, nausea and vomiting HISTORY OF PRESENT ILLNESS: 28 y.o. female with a history of ORIF of left upper extremity and acute pancreatitis of unclear etiology 10 days postop who directly admitted from [facility] ED with acute hepatitis on 09/30/2018. Patient fractured her humerus after slipping in the shower and underwent ORIF on 08/29/2018. She was hospitalized 09/08-09/11/[address] abdomen pelvis 09/08 showed fatty infiltration of the liver and mild haziness and fat stranding surrounding the pancreas without a focal fluidcollection. Patient denied any alcohol use. Triglycerides were normal. She did admit to smoking marijuana several times a week. She presented to [facility] ED 09/29 with 2 3 days of upper abdominal pain, nausea and vomiting. She says she only had one alcoholic beverage more than a week ago since her recent discharge from the hospital. She been taking her Percocet for pain control and using Tylenol as well intermittently. She reported taking 3 500 mg acetaminophen at least 6-8 times a day for the past week. Last was 12 to 18 hours prior to presenting to the ED. In the ED she was found to have white count 18.9, hemoglobin 14.8, MCV 101, AST 3955, ALT 624, alk phos 186, total bili 1.2, INR 1.5 acetaminophen less than 3. Lipase 78. Given concerns for Tylenol toxicity she was started on NAC protocol. She was transferred to [facility]. PAST MEDICAL HISTORY: Past Medical History: Diagnosis Date ??? ADD (attention deficit disorder) ??? Anxiety and depression ??? Left elbow fracture ??? Marijuana abuse ??? Pancreatitis 09/08/2018 ??? Tobacco abuse Past Surgical History: Procedure Laterality Date ??? FX REDUCTION OF DISTAL HUMERUS Left 08/29/2018 ORIF MEDICATIONS PRIOR TO ADMISSION Medications Prior to Admission Medication Sig Dispense Refill Last Dose ??? acetaminophen (TYLENOL) 325 mg oral tablet Take 325 mg by mouth every 4 (four) hours as needed. ??? ibuprofen 600 mg oral tablet Take 600 mg by mouth every 6 (six) hours as needed (Maximum of 3200mg in 24 hours). Authorized by: Dominick Wong, DO ??? omeprazole (PRILOSEC) 20 mg oral delayed release capsule Take 20 mg by mouth once daily. Take once daily before a meal. Authorized by: Catia Braxton MD Quanity: 30 tablets Refill: 2 refills by 09/20/2019 ??? ondansetron (ZOFRAN) 4 mg oral ODT Dissolve 4 mg in mouth every 6 (six) hours as needed for nausea. Authorized by: Dominick Hickey DO Quantitiy: 10 tablets No refils ??? potassium chloride (K-DUR) 20 mEq oral extended release tablet Take 20 mEq by mouth twice a day with breakfast and lunch. Authorized by: Catia Hickey MD Quanity: 60 tablets No refills ALLERGIES/SENSITIVITIES Allergies Allergen Reactions ??? Azithromycin Nausea Nausea and vomiting. FAMILY HISTORY Denies any family history of liver diease. SOCIAL HISTORY Smokes cigarettes occasionally. Uses marijuana 3-4 times per week. Reports drinking alcohol 1-2 times per week. REVIEW OF SYSTEMS GENERAL: Denies any weight loss, fevers or chills. HEENT: Negative. CARDIAC: No chest pain or palpitations. PULMONARY: No shortness of breath or cough. MUSCULOSKELETAL: Denies any new myalgias or arthralgias. DERMATOLOGIC: Denies any new skin rashes, jaundice or pruritus. GENITOURINARY: Denies any dysuria, urgency, dark urine or blood in urine. NEUROLOGIC: Denies any focal numbness or weakness. GASTROINTESTINAL: See HPI. PSYCHOLOGIC: No psychologic or psychiatric problems. ENDOCRINE: No thyroid or endocrine complaints. LYMPH:No bruising, bleeding or lymphadenopathy. ALLERGIC/IMMUNOLOGIC: Denies Remainder of 12 point review of systems is otherwise negative. PHYSICAL EXAM BP 104/64 Pulse (!) 110 Temp 99 ??F (37.2 ??C) Resp 18 Ht 5' 2 (1.575 m) Wt 68 kg (150 lb) SpO2 94% ? No BMI 27.44 kg/m?? GENERAL: Well appearing female in no acute distress. SKIN: No rashes or lesions HEENT: Pupils are equal. There is conjunctival pallor without scleral icterus. Neck is supple. Oral mucosa moist with no lesions. CHEST: clear to ausculation bilaterally no wheezing, rales or rhonchi. HEART: Regular rate and rhythm without murmurs, rubs or gallops. No heaves, thrills or thrust to palpation. ABDOMEN: The abdomen is nondistended and soft. Liver and spleen are not enlarged. No masses are palpable. Mild diffuse tenderness to palpation. No rigidity or guarding. Bowel sounds are present. EXTREMITIES: No lower extremity edema. NEUROLOGIC: Grossly nonfocal. The patient is oriented to person, place and time. PSYCH: Mood and affect normal. LABORATORY AND RADIOLOGIC DATA: Results for orders placed or performed during the hospital encounter of 09/30/18 (from the past 24 hour(s)) CBC / Diff Result Value Ref Range WBC 14.6 (H) 4.3 - 10.8 K/uL RBC 3.90 (L) 4.20 - 5.40 M/uL HEMOGLOBIN 13.6 12.0 - 16.0 gm/dL HEMATOCRIT 39.9 36.0 - 48.0 % MCV 102 (H) 80 - 100 fl MCH 35 (H) 27 - 33 pg MCHC 34 33 - 36 gm/dL RDW 13.2 11.5 - 14.5 % PLATELET COUNT 257 150 - 400 K/UL MPV 9.7 6.5 - 12 PMN % 90.9 % IG% 0.3 <=1.0 % LYMPH % 5.1 % MONO % 3.2 % EOS % 0.3 % BASO % 0.2 % PMN ABSOLUTE 13.28 (H) 1.80 - 7.80 K/uL IG ABSOLUTE 0.05 K/uL LYMPH ABSOLUTE 0.74 (L) 1.00 - 4.00 K/uL MONO ABSOLUTE 0.47 0.00 - 1.00 K/uL EOS ABSOLUTE 0.04 0.00 - 0.45 K/uL BASO ABSOLUTE 0.03 0.00 - 0.20 K/uL NUCL RBC % 0.0 0.0 - 0.0 /100 WBC NUCL RBC ABSOLUTE 0.00 K/uL Basic Metab Profile Result Value Ref Range SODIUM 139 136 - 145 mmol/L POTASSIUM 3.7 3.5 - 5.1 mmol/L CHLORIDE 103 98 - 112 mmol/L CARBON DIOXIDE 24 21 - 32 mmol/L BUN (UREA NITRO) 6 (L) 7 - 24 mg/dL CREATININE 0.33 (L) 0.55 - 1.02 mg/dL EST GFR (MDRD) >60 >60 mL/min EST GFR IF AM >60 >60 mL/min GLUCOSE 146 (H) 74 - 106 mg/dL CALCIUM, SERUM 8.6 8.5 - 10.1 mg/dL ANION GAP 12.0 0.0 - 15.0 mmol/L Magnesium Result Value Ref Range Magnesium 1.7 (L) 1.8 - 2.4 mg/dL Lactic Acid Result Value Ref Range LACTIC ACID 1.9 0.7 - 2.1 mmol/L Liver Profile Result Value Ref Range ALT 737 (H) 12 - 68 IU/L ALKALINE P'TASE 156 (H) 45 - 117 IU/L AST (SGOT) 3,843 (H) 12 - 37 IU/L PROTEIN TOTAL 5.2 (L) 6.4 - 8.2 g/dL ALBUMIN 2.8 (L) 3.4 - 5.0 g/dL BILIRUBIN-DIRECT 0.45 (H) 0.05 - 0.24 mg/dL BILIRUBIN-TOTAL 0.9 0.2 - 1.0 mg/dL Lipase Result Value Ref Range LIPASE 360 (H) 73 - 350 IU/L Acetaminophen Result Value Ref Range ACETAMINOPHEN (TYLENOL) 4 (L) 10 - 30 ug/mL Protime / INR Result Value Ref Range PROTIME 18.7 (H) 10.0 - 13.0 sec. INR 1.7 (H) 1.0 - 1.2 Hepatitis A/B/C Panel Result Value Ref Range HEP BC IGM DELBERT Non-Reactive Non-Reactive HEP A IGM DELBERT Non-Reactive Non-Reactive HEP BS ANTIGEN Non-Reactive Non-Reactive Hepatitis C Antibody Non-Reactive Non-Reactive IMPRESSION: 28 y.o. female with history of ORIF of left upper extremity and acute pancreatitis of unclear etiology 10 days postop who presents with abdominal pain, nausea and vomiting. Acute hepatitis AST 3843, ALT 734, total bilirubin 0.9 INR 1.7 Initial Tylenol level less than 3 but concerns for Tylenol toxicity taking 1500 mg tablet 6-8 times per day for the past 2 weeks. Other considerations include autoimmune hepatitis, acute viral hepatitis. She denies any herbal medications or recent antibiotics. Started on NAC protocol 09/30. PLAN/RECOMMENDATIONS: 1. Complete NAC protocol. 2. Check hepatitis panel and autoimmune liver panel. 3. Closely follow liver tests and INR. This patient's case was reviewed with Dr. Blancas, GI staff, who agrees with the above assessment and plan. Thank you for the opportunity to provide consultation for this patient. We will continue to follow. Felicita Dia PA-C [facility] Digestive [facility] Pager: Eggs Overnight Weekends and after 5 p.m., call [phone] documented in this encounter Nursing Notes Jyoti Bella RN - 10/02/2018 8:37 AM CDT Problem: Pain Goal: Exhibits reduction in pain to a level of acceptable comfort Note: Pt receiving scheduled Neurontin and Ibuprofen for pain. Taking prn Oxycodone also. Andreas Paul RN - 10/02/2018 12:39 AM CDT Problem: Falls/Injury-Risk of Goal: Absence of Falls/Injury Outcome: Met this shift Steady gait. No falls. Problem: Discharge Planning Goal: Establish appropriate post-hospitalization placement Outcome: Met this shift Possible DC today. Sig.other to transfer Problem: Pain Goal: Exhibits reduction in pain to a level of acceptable comfort Outcome: Met this shift Pt taking Oxycodone PO PRN for pain control. Marli Girard RN - 10/01/2018 7:29 PM CDT Problem: Discharge Planning Goal: Establish appropriate post-hospitalization placement Outcome: Ongoing Problem: Pain - Angina Goal: Communication of presence of pain Outcome: Ongoing Goal: Control of acute pain Outcome: Ongoing Problem: Falls/Injury-Risk of Goal: Absence of Falls/Injury Outcome: Met this shift Problem: Pain - Angina Goal: Establishes comfort goal Outcome: Met this shift Pt pain is being rated from 7-8 with PRN oxycodone 10mg and scheduled ibpruofen. Possible d/c tomorrow if pain is controlled and liver labs are looking good. BP 103/62 Pulse 83 Temp 98.1 ??F (36.7 ??C) Resp 16 Ht 1.575 m (5' 2) Wt 71 kg (156 lb 8 oz) SpO2 96% ? No BMI 28.62 kg/m?? Marli Girard RN Evi Londono RN - 10/01/2018 1:49 PM CDT MD added Ibuprofen to MAR. Pt states this is helping to decrease inflammation. Also added roxicodone. Pt just received first dose and will monitor response. Carol Parker RN - 10/01/2018 6:52 AM CDT Problem: Pain - Angina Goal: Control of acute pain Outcome: Not met this shift Note: Patient continues to have severe pain to left elbow/ Problem: Falls/Injury-Risk of Goal: Absence of Falls/Injury Outcome: Met this shift Flowsheets (Taken 10/01/2018 0300) Environmental Safety Interventions: Standard Interventions in Place Mobility Safety Interventions: Standard Interventions in Place Elimination Safety Interventions: Standard Interventions in Place Medication: Standard Interventions in Place Note: NO falls this shift. Steady on feet. Marli Girard RN - 09/30/2018 9:43 PM CDT Problem: Discharge Planning Goal: Establish appropriate post-hospitalization placement Outcome: Ongoing Problem: Falls/Injury-Risk of Goal: Absence of Falls/Injury Outcome: Met this shift Pt has been pleasant this shift. Complaining of pain from 8-10. IV Morphine given PRN every 3 hours.Pt appears to be resting comfortably but still rates pain from 8-10. Potassium replaced this shift. BP 95/60 Pulse (!) 117 Temp 98.3 ??F (36.8 ??C) Resp 20 Ht 1.575 m (5' 2) Wt 68 kg (150 lb) SpO2 94% ? No BMI 27.44 kg/m?? Marli Girard RN Virginia Bob RN - 09/30/2018 10:32 AM CDT Discharge Planning Initial Assessment Patients chart reviewed. Patient discussed in rounds. Admitting diagnoses: Acute hepatitis [B17.9] Admitted from: Home Prior: Living Arrangements: Family members Support Systems: Family members Primary decision maker: Patient DME prior to admission: immobilizer to LUE Anticipated Discharge Needs: None identified Care coordination initiated: Patient was discussed in care progression rounds with the interdisciplinary team. Patient is independent at baseline. Per discussion in rounds, pt will likely d/c home withno anticipated d/c needs. As such, pt will be considered an RN d/c. Should d/c needs arise, please page/call Deputy Sheriff [email or web address] Handler to update. Care management is available should further needs arise. Barriers to discharge: Medical stability Care management will continue to follow. Ivet Bob RN Case Manager 2W Observation Unit Pager: [phone] documented in this encounter Miscellaneous Notes Result Encounter Note - Sammy Mack PA-C - 10/02/2018 12:02 PM CDT SAMMY Screen positive. Forwarded to Dr. Tavera. Sammy Mack PA-C [facility] Medicine Service Pager: [phone] Med Reconciliation - Emperatriz Corral - 09/30/2018 1:52 PM CDT PHARMACY MEDICATION RECONCILIATION NOTE MEDICATION RECONCILIATION on admission by pharmacy has been completed. Prior to admission medications were reviewed with patient and [facility] presciption refill information. The PAST DUE ACCOUNTS CLERK medication list has been updated and reflected in the chart below. Please use the PAST DUE ACCOUNTS CLERK medication section for ordering home doses during admission. Medication related issues including pertinent changes made to the PAST DUE ACCOUNTS CLERK list by pharmacy: (discrepancies, interactions, additions, removal, changes & reason , duplications, compliance...) 1. Patient reports that she was taking 325-975mg Tylenol up to every 1 hour as needed 2. Removed Ibuprofen 3. Changed Omeprazole to 20mg daily prn 4. Added Trazodone 5. Added Gabapentin 6. Added Lorazepam 7. Added Oxycodone Prior to Admission Medications Prescriptions Last Dose Informant Patient Reported? Taking? LORazepam (ATIVAN) 0.5 mg oral tablet Yes Yes Sig: Take 0.5 mg by mouth once a day as needed. acetaminophen (TYLENOL) 325 mg oral tablet Yes Yes Sig: Take 325-975 mg by mouth every 4 (four) hours as needed. gabapentin (NEURONTIN) 100 mg oral capsule Yes Yes Sig: Take 100 mg by mouth at bedtime. omeprazole (PRILOSEC) 20 mg oral delayed release capsule Yes Yes Sig: Take 20 mg by mouth once a day as needed. Take once daily before a meal. Authorized by: Catia Braxton MD Quanity: 30 tablets Refill: 2 refills by 09/20/2019 ondansetron (ZOFRAN) 4 mg oral ODT Yes Yes Sig: Dissolve 4 mg in mouth every 6 (six) hours as needed for nausea. Authorized by: Dominick Hickey DO Quantitiy: 10 tablets No refils oxyCODONE, immediate release, (ROXICODONE) 5 mg oral tablet Yes Yes Sig: Take 5 mg by mouth every 6 (six) hours as needed. potassium chloride (K-DUR) 20 mEq oral extended release tablet Yes Yes Sig: Take 20 mEq by mouth twice a day with breakfast and lunch. Authorized by: Catia Hickey MD Quanity: 60 tablets No refills traZODone (DESYREL) 50 mg oral tablet Yes Yes Sig: Take 50 mg by mouth at bedtime as needed for Sleep. Facility-Administered Medications: None Thank you for the opportunity to participate in the care of this patient. Loreta Pino, Pharm D Phone #:[phone] or [phone] Time spent reconciling meds:20 min documented in this encounter Plan of Treatment Scheduled Referrals Name Type Priority Associated Diagnoses Order S chedule Follow Up Follow Up Routine Ordered: 2018 documented as of this encounter Procedures Procedure Name Priority Date/Time Associated Comments Diagnosis PROTIME/INR Routine 10/02/2018 8:23 Results for this AM CDT procedure are i n the results section. MAGNESIUM Routine 10/02/2018 8:22 Results for this AM CDT procedure are i n the results section. LIPASE Routine 10/02/2018 8:22 Results for this AM CDT procedure are i n the results section. LIVER PROFILE Routine 10/02/2018 8:22 Results for this AM CDT procedure are i n the results section. BASIC METAB PROFILE Routine 10/02/2018 8:22 Resul ts for this AM CDT procedure are i n the results section. SMOOTH MUSCLE Routine 10/02/2018 8:22 Results for this ANTIBODY SCREEN AM CDT procedure ar e in the results section. CBC Routine 10/02/2018 8:22 Results for this (HGB,HCT,WBC,RBC,JAVY AM CDT procedu re are in TELET) the results section. POTASSIUM Timed Procedure 10/01/2018 8:16 Results f or this PM CDT procedure are i n the results section. ACETAMINOPHEN Routine 10/01/2018 4:43 Results for this PM CDT procedure are i n the results section. LIVER PROFILE Routine 10/01/2018 4:43 Results for this PM CDT procedure are i n the results section. BASIC METAB PROFILE Routine 10/01/2018 4:43 Resul ts for this PM CDT procedure are i n the results section. PROTIME/INR Routine 10/01/2018 4:43 Results for this PM CDT procedure are i n the results section. IGG Add On 10/01/2018 7:08 Results for this AM CDT procedure are i n the results section. MAGNESIUM Routine 10/01/2018 7:08 Results for this AM CDT procedure are i n the results section. LIPASE Routine 10/01/2018 7:08 Results for this AM CDT procedure are i n the results section. LIVER PROFILE Routine 10/01/2018 7:08 Results for this AM CDT procedure are i n the results section. BASIC METAB PROFILE Routine 10/01/2018 7:08 Resul ts for this AM CDT procedure are i n the results section. SAMMY SCREEN Add On 10/01/2018 7:08 Results for this AM CDT procedure are i n the results section. CBC Routine 10/01/2018 7:08 Results for this (HGB,HCT,WBC,RBC,JAVY AM CDT procedu re are in TELET) the results section. PROTIME/INR Routine 10/01/2018 7:08 Results for this AM CDT procedure are i n the results section. PROTIME/INR Timed Procedure 09/30/2018 11:02 Results for this PM CDT procedure are i n the results section. ACETAMINOPHEN Routine 09/30/2018 11:01 Results fo r this PM CDT procedure are i n the results section. POTASSIUM Timed Procedure 09/30/2018 11:01 Results for this PM CDT procedure are i n the results section. LIVER PROFILE Timed Procedure 09/30/2018 11:01 Results for this PM CDT procedure are i n the results section. XR ELBOW LT 3 VIEW Now 09/30/2018 1:16 Result s for this PM CDT procedure are i n the results section. MAGNESIUM Timed Procedure 09/30/2018 12:43 Results for this PM CDT procedure are i n the results section. POTASSIUM Timed Procedure 09/30/2018 12:43 Results for this PM CDT procedure are i n the results section. ACETAMINOPHEN STAT 09/30/2018 6:42 Results for this AM CDT procedure are i n the results section. LACTIC ACID STAT 09/30/2018 6:42 Results for this AM CDT procedure are i n the results section. MAGNESIUM STAT 09/30/2018 6:42 Results for this AM CDT procedure are i n the results section. LIPASE STAT 09/30/2018 6:42 Results for this AM CDT procedure are i n the results section. LIVER PROFILE STAT 09/30/2018 6:42 Results for this AM CDT procedure are i n the results section. BASIC METAB PROFILE STAT 09/30/2018 6:42 Resul ts for this AM CDT procedure are i n the results section. HEP A/B/C PANEL Routine 09/30/2018 6:42 Results f or this AM CDT procedure are i n the results section. PROTIME/INR STAT 09/30/2018 6:42 Results for this AM CDT procedure are i n the results section. CBC/DIFF STAT 09/30/2018 6:42 Results for this AM CDT procedure are i n the results section. documented in this encounter Results Protime / INR (10/02/2018 8:23 AM CDT)Only the most recent of5 resultswithin the time period is included. athologist Signature PROTIME 12.9 10.0 - 13.0 10/02/2018 [facility] sec. 8:58 AM CDT HEALTH LABORATORY INR 1.2 1.0 - 1.2 10/02/2018 [facility] 8:58 AM CDT HEALTH LABORATORY Specimen Anatomical Collection Method Collection Time Receive d Time (Source) Location / / Volume Laterality Blood 10/02/2018 8:23 AM 9 8:40 CDT AM CDT Kimberly Rosas PA-C COAGULATION ORDERABLE Performing Organization Address [facility] Phon e Number [facility] [address] [place] [address] LABORATORY Smooth Muscle Antibody (10/02/2018 8:22 AM CDT) [facility] gist Method Time Signature Smooth Muscle Negative Negative 10/04/2018 [facility] Screen 10:17 AM CDT LABORATORIES Comment: ADDITIONAL INFORMATIO N This test was developed and its performa nce characteristics determined by [facility] in a manner co nsistent with CLIA requirements. This test has not been norah ared or approved by the U.S. Food and Drug Administration. Test Performed by: [facility] [address] [place], [place] [address] Specimen Anatomical Collection Method Collection Time Receive d Time (Source) Location / / Volume Laterality Blood 10/02/2018 8:22 AM 9 8:39 CDT AM CDT Criselda Coker MD SEND OUT ORDERABLE Performing Organization Address City/[facility]/ZIP [facility] Phon e Number [facility] [employer] [address] [place] [address] (ABNORMAL) CBC- Daily AM (10/02/2018 8:22 AM CDT)Only the most recent of2 resultswithin the time period is included. Patholo gist Method Time Signature WBC 7.5 4.3 - 10.8 10/02/2018 [facility] K/uL 8:45 AM [facility] RBC 3.77 (L) 4.20 - 10/02/2018 [facility] 5.40 M/uL 8:45 AM [facility] LABORATORY HEMOGLOBIN 13.0 12.0 - 10/02/2018 [facility] 16.0 gm/dL 8:45 AM [facility] LABORATORY HEMATOCRIT 39.2 36.0 - 10/02/2018 [facility] 48.0 % 8:45 AM [facility] LABORATORY MCV 104 (H) 80 - 100 10/02/2018 [facility] fl 8:45 AM [facility] LABORATORY MCH 35 (H) 27 - 33 pg 10/02/2018 [facility] 8:45 AM [facility] LABORATORY MCHC 33 33 - 36 10/02/2018 [facility] gm/dL 8:45 AM [facility] LABORATORY RDW 13.3 11.5 - 10/02/2018 [facility] 14.5 % 8:45 AM [facility] LABORATORY PLATELET COUNT 218 150 - 400 10/02/2018 [facility] K/UL 8:45 AM [facility] LABORATORY MPV 10.3 6.5 - 12 10/02/2018 [facility] 8:45 AM [facility] LABORATORY Specimen Anatomical Collection Method Collection Time Receive d Time (Source) Location / / Volume Laterality Blood 10/02/2018 8:22 AM 9 8:41 CDT AM CDT Marli Girard RN HEMATOLOGY ORDERABLE Performing Organization Address City/State/ZIP Code Phon e Number [facility] [address] [place] [address] [phone] LABORATORY Lipase (10/02/2018 8:22 AM CDT)Only the most recent of3 resultswithin the time period is included. P athologist Signature LIPASE 221 73 - 350 10/02/2018 [facility] IU/L 9:06 AM [facility] LAB[facility]ORY Specimen Anatomical Collection Method Collection Time Receive d Time (Source) Location / / Volume Laterality Blood 10/02/2018 8:22 AM 9 8:40 CDT AM CDT Kimberly Rosas PA-C CHEMISTRY ORDERABLE Performing Organization Address City/State/ZIP Code Phon e Number [facility] [address] [place] [address] LABORATORY (ABNORMAL) Basic Metabolic Profile Daily AM (10/02/2018 8:22 AM CDT)Only the most recent of4 resultswithin the time period is included. [facility] Method Time Signature SODIUM 140 136 - 145 10/02/2018 [facility] mmol/L 9:18 AM [facility] LABORATORY POTASSIUM 4.1 3.5 - 5.1 10/02/2018 [facility] mmol/L 9:18 AM [facility] LABORATORY CHLORIDE 107 98 - 112 10/02/2018 [facility] mmol/L 9:18 AM [facility] LABORATORY CARBON DIOXIDE 28 21 - 32 10/02/2018 [facility] mmol/L 9:18 AM [facility] LABORATORY BUN (UREA 1 (L) 7 - 24 10/02/2018 [facility] NITRO) mg/dL 9:18 AM [facility] LABORATORY CREATININE 0.35 (L) 0.55 - 10/02/2018 [facility] 1.02 mg/dL 9:18 AM [facility] LABORATORY EST GFR >60 >60 mL/min 10/02/2018 [facility] (CKD-EPI) 9:18 AM [facility] LABORATORY EST GFR IF >60 >60 mL/min 10/02/2018 [facility] AM 9:18 AM [facility] LABORATORY GLUCOSE 100 74 - 106 10/02/2018 [facility] mg/dL 9:18 AM [facility] LABORATORY CALCIUM, SERUM 8.6 8.5 - 10.1 [facility]/02/[address] [facility] 9:18 AM [facility] LAB[facility] ANION GAP 5.0 0.0 - 15.0 10/02/2018 [facility] mmol/L 9:18 AM [facility] LABORATORY Specimen Anatomical Collection Method Collection Time Receive d Time (Source) Location / / Volume Laterality Blood 10/02/2018 8:22 AM 9 8:40 CDT AM CDT Kimberly Rosas PA-C CHEMISTRY ORDERABLE Performing Organization Address City/State/ZIP Code Phon e Number [facility] [address] [address] LABORATORY (ABNORMAL) Liver Profile (10/02/2018 8:22 AM CDT)Only the most recent of5 resultswithin the time period is included. Analysis Performed At Patho logist Time Signature ALT 271 (H) 12 - 68 10/02/2018 [facility] IU/L 9:18 AM T HEALTH LABORATORY ALKALINE 165 (H) 45 - 117 10/02/2018 [facility] P'TASE IU/L 9:18 AM [facility] LAB[facility] AST (SGOT) 274 (H) 12 - 37 10/02/2018 [facility] IU/L 9:18 AM [facility] LABOR[facility] PROTEIN TOTAL 6.0 (L) 6.4 - 8.2 10/02/2018 [facility] g/dL 9:18 AM [facility] LABORATORY ALBUMIN 3.0 (L) 3.4 - 5.0 10/02/2018 [facility] g/dL 9:18 AM [facility] LABOR[facility] BILIRUBIN-DIRE 0.56 (H) 0.05 - 10/02/[address] [facility] [address] 0.24 mg/dL 9:18 AM [facility] LABORATORY BILIRUBIN-TOTA 1.2 (H) 0.2 - 1.0 10/02/2018 [facility] L mg/dL 9:18 AM [facility] LABORATORY Specimen Anatomical Collection Method Collection Time Receive d Time (Source) Location / / Volume Laterality Blood 10/02/2018 8:22 AM 9 8:40 CDT AM CDT Kimberly Rosas PA-C CHEMISTRY ORDERABLE Performing Organization Address City/State/ZIP Code Phon e Number [facility] [address] [address] [phone] LABORATORY Magnesium (10/02/2018 8:22 AM CDT)Only the most recent of4 resultswithin the time period is included. athologist Signature Magnesium 2.0 1.8 - 2.4 10/02/2018 [facility] mg/dL 9:07 AM CDT HEALTH LABORATORY Specimen Anatomical Collection Method Collection Time Receive d Time (Source) Location / / Volume Laterality Blood 10/02/2018 8:22 AM 9 8:40 CDT AM CDT Robby Conrad MD CHEMISTRY ORDERABLE Performing Organization Address City/[facility]/ZIP [facility] Phon e Number [facility] [address] [place] [address] [place] [address] LABORATORY Potassium, Serum (10/01/2018 8:16 PM CDT)Only the most recent of3 resultswithin the time period is included. P athologist Signature POTASSIUM 4.2 3.5 - 5.1 10/01/2018 [facility] mmol/L 8:50 PM CDT HEALTH LABORATORY Specimen Anatomical Collection Method Collection Time Receive d Time (Source) Location / / Volume Laterality Blood 10/01/2018 8:16 PM 9 8:32 CDT PM CDT Marli Girard RN CHEMISTRY ORDERABLE Performing Organization Address [facility] Phon e Number [address] [place] [address] LABORATORY (ABNORMAL) Acetaminophen (10/01/2018 4:43 PM CDT)Only the most recent of3 resultswithin the time period is included. Patholo gist Method Time Signature ACETAMINOPHEN 2 (L) 10 - 30 10/01/2018 [facility] (TYLENOL) ug/mL 5:34 PM CDT HEALTH LABORATORY Specimen Anatomical Collection Method Collection Time Receive d Time (Source) Location / / Volume Laterality Blood 10/01/2018 4:43 PM 9 5:07 CDT PM CDT Erika Silver DO CHEMISTRY ORDERABLE Performing Organization Address City/[facility]/ZIP Code Phon e Number [address] [place] [address] LABORATORY (ABNORMAL) IgG (10/01/2018 7:08 AM CDT) P athologist Signature IGG 530 (L) 700-1,600 10/01/2018 [facility] mg/dL 2:03 PM CDT HEALTH LABORATORY Specimen Anatomical Collection Method Collection Time Receive d Time (Source) Location / / Volume Laterality Blood 10/01/2018 7:08 AM 9 7:22 CDT AM CDT Criselda Coker MD CHEMISTRY ORDERABLE Performing Organization Address City/State/ZIP Code Phon e Number [facility] [place] [address] LABORATORY (ABNORMAL) SAMMY Screen (10/01/2018 7:08 AM CDT) Analysis Performed At Patho logist Time Signature SAMMY SCRN Positive (A) Negative 10/03/2018 [facility] 1:37 PM CDT HEALTH LABORATORY Specimen Anatomical Collection Method Collection Time Receive d Time (Source) Location / / Volume Laterality Blood 10/01/2018 7:08 AM 9 7:22 CDT AM CDT Criselda Coker MD CHEMISTRY ORDERABLE Performing Organization Address City/[facility]/ZIP Code Phon e Number [facility] [address] [address] LABORATORY XR ELBOW LT (09/30/2018 1:16 PM CDT) Anatomical Region Laterality Modality Extremity Computed Radiography Specimen (Source) Anatomical Collection Method Collection Time Re ceived Time Location / / Volume Laterality 09/30/2018 1:26 PM CDT Impressions 09/30/2018 1:28 PM CDT IMPRESSION: Comminuted intra-articular fracture of the distal humerus post open reduction/internal fixation. The fracture fragments are held in anatomical position and alignment by sideplate and multipl e screws. No evidence of healing. No nadya dware complication. REPORT SIGNED BY DR. Lloyd Arcos Narrative 09/30/2018 1:28 PM CDT EXAM: ??LEFT ELBOW THREE VIEWS ??09/30/2018 1:09 PM CLINICAL: Pain. Procedure Note Lloyd Arcos MD - 09/30/2018Forma tting of this note might be different from the original. EXAM: LEFT ELBOW THREE VIEWS 09/30/2018 1 :09 PM CLINICAL: Pain. IMPRESSION IMPRESSION: Comminuted intra-articular f racture of the distal humerus post open reduction/internal fixation. The fracture fragments are held in anatomical position and alignment by sideplate and multiple screws. No evidence of healing. No hardware complic ation. REPORT SIGNED BY DR. Lloyd Arcos Xuan Block [employer], EMPLOYMENT COACH XRAY ORDERABLE Hepatitis A/B/C Panel (09/30/2018 6:42 AM CDT) [facility] Method Time Signature HEP BC IGM DELBERT Non-Reacti Non-Reacti 09/30/2018 [facility] AL ve ve 8:24 AM CDT HEALTH LABORATORY HEP A IGM DELBERT Non-Reacti Non-Reacti 09/30/2018 [facility] L ve ve 8:24 AM CDT HEALTH LABORATORY HEP BS ANTIGEN Non-Reacti Non-Reacti 09/30/2018 [facility] AL ve ve 8:24 AM CDT HEALTH LABORATORY Hepatitis C Non-Reacti Non-Reacti 09/30/2018 [facility] Antibody ve ve 8:24 AM CDT HEALTH LABORATORY Specimen Anatomical Collection Method Collection Time Receive d Time (Source) Location / / Volume Laterality Blood 09/30/2018 6:42 AM 9 6:59 CDT AM CDT Robby Conrad MD IMMUNOLOGY ORDERABLE Performing Organization Address City/[facility]/ZIP Code Phon e Number [facility] [address] [facility] [place] [address] LABORATORY Lactic Acid (09/30/2018 6:42 AM CDT) athologist Signature LACTIC ACID 1.9 0.7 - 2.1 09/30/2018 [facility] mmol/L 7:03 AM CDT [facility] LABORATORY Specimen Anatomical Collection Method Collection Time Receive d Time (Source) Location / / Volume Laterality Blood 09/30/2018 6:42 AM 9 7:00 CDT AM CDT Robby Conrad MD CHEMISTRY ORDERABLE Performing Organization Address City/[facility]/ZIP Code Phon e Number [facility] [address] [facility] [place] [address] LABORATORY (ABNORMAL) CBC / Diff (09/30/2018 6:42 AM CDT) [facility] Method Time Signature WBC 14.6 (H) 4.3 - 09/30/2018 [facility] 10.8 K/uL 6:59 AM CDT HEALTH LABORATORY RBC 3.90 (L) 4.20 - 09/30/2018 [facility] 5.40 M/uL 6:59 AM CDT HEALTH LABORATORY HEMOGLOBIN 13.6 12.0 - 09/30/2018 [facility] 16.0 6:59 AM CDT HEALTH gm/dL LABORATORY HEMATOCRIT 39.9 36.0 - 09/30/2018 [facility] 48.0 % 6:59 AM CDT HEALTH LABORATORY MCV 102 (H) 80 - 100 09/30/2018 [facility] fl 6:59 AM CDT HEALTH LABORATORY MCH 35 (H) 27 - 33 09/30/2018 [facility] pg 6:59 AM CDT HEALTH LABORATORY MCHC 34 33 - 36 09/30/2018 [facility] gm/dL 6:59 AM CDT HEALTH LABORATORY RDW 13.2 11.5 - 09/30/2018 [facility] 14.5 % 6:59 AM CDT HEALTH LABORATORY PLATELET COUNT 257 150 - 400 09/30/2018 [facility] K/UL 6:59 AM CDT HEALTH LABORATORY MPV 9.7 6.5 - 12 09/30/2018 [facility] 6:59 AM CDT HEALTH LABORATORY PMN % 90.9 % 09/30/2018 [facility] 6:59 AM CDT HEALTH LABORATORY IG% 0.3 <=1.0 % 09/30/2018 [facility] 6:59 AM CDT HEALTH LABORATORY LYMPH % 5.1 % 09/30/2018 [facility] 6:59 AM CDT HEALTH LABORATORY MONO % 3.2 % 09/30/2018 [facility] 6:59 AM CDT HEALTH LABORATORY EOS % 0.3 % 09/30/2018 [facility] 6:59 AM CDT HEALTH LABORATORY BASO % 0.2 % 09/30/2018 [facility] 6:59 AM CDT HEALTH LABORATORY PMN ABSOLUTE 13.28 (H) 1.80 - 09/30/2018 [facility] 7.80 K/uL 6:59 AM CDT HEALTH LABORATORY IG ABSOLUTE 0.05 K/uL 09/30/2018 [facility] 6:59 AM CDT HEALTH LABORATORY LYMPH ABSOLUTE 0.74 (L) 1.00 - 09/30/2018 [facility] 4.00 K/uL 6:59 AM CDT HEALTH LABORATORY MONO ABSOLUTE 0.47 0.00 - 09/30/2018 [facility] 1.00 K/uL 6:59 AM CDT HEALTH LABORATORY EOS ABSOLUTE 0.04 0.00 - 09/30/2018 [facility] 0.45 K/uL 6:59 AM CDT HEALTH LABORATORY BASO ABSOLUTE 0.03 0.00 - 09/30/2018 [facility] 0.20 K/uL 6:59 AM CDT HEALTH LABORATORY NUCL RBC % 0.0 0.0 - 0.0 09/30/2018 [facility] /100 WBC 6:59 AM CDT HEALTH LABORATORY NUCL RBC 0.00 K/uL 09/30/2018 [facility] ABSOLUTE 6:59 AM CDT HEALTH LABORATORY Specimen Anatomical Collection Method Collection Time Receive d Time (Source) Location / / Volume Laterality Blood 09/30/2018 6:42 AM 9 6:56 CDT AM CDT Robby A Matter HEMATOLOGY ORDERABLE Performing Organization Address City/State/ZIP Code Phon e Number [facility] [address] [address] LABORATORY documented in this encounter Visit Diagnoses Diagnosis Acute hepatitis - Primary Acute and subacute necrosis of liver Accidental acetaminophen overdose Poisoning by aromatic analgesics, not el sewhere classified Closed bicondylar fracture of distal end of left humerus with routine healing Idiopathic pancreatitis Gastroesophageal reflux disease without esophagitis Esophageal reflux Marijuana abuse Cannabis abuse, unspecified Tobacco abuse Tobacco use disorder Hypomagnesemia Disorders of magnesium metabolism documented in this encounter Admitting Diagnoses Diagnosis Acute hepatitis Acute and subacute necrosis of liver documented in this encounter Administered Medications Inactive Administered Medications - up to 3 most recent administrations Medication Order MAR Action Action Date Dose Rate Site saline FLUSH syringe 10 mL Given 10/01/2018 9:33 PM CDT 10 mL 10 mL, Intravenous, EVERY 8 HOURS, First dose on Wed09/30/18 at 0600, Until Discontinued Given 10/01/2018 5:01 AM CDT 10 mL Given 09/30/2018 10:06 PM CDT 10 mL saline FLUSH syringe 10 mL Given 10/02/2018 3:40 AM CDT 10 mL 10 mL, Intravenous, NEEDED, Starting on Wed09/30/18 at 0441, Until Wed10/02/18 at 1802, Line Care Given 10/01/2018 2:15 PM CDT 10 mL Given 10/01/2018 9:54 AM CDT 10 mL acetylcysteine (MUCOMYST) 3,380 mg in dextrose No Change 0 09/30/2018 5:00 AM CDT 5 % (D5W) 500 mL IV infusion 3,380 mg (50 mg/kg ? 67.6 kg), Intravenous, CONTINUOUS, Starting on Wed09/30/18 at 0500, Until Wed09/30/18 at 0859 acetylcysteine (MUCOMYST) 6,760 mg in New Bag 09/30/2018 9:12 AM C DT 6,760 mg dextrose 5 % (D5W) 1,000 mL IV infusion 6,760 mg (100 mg/kg ? 67.6 kg), Intravenous, CONTINUOUS, Starting on Wed09/30/18 at 0700, Until Wed09/30/18 at 1129 acetylcysteine (MUCOMYST) 6,760 mg in dextrose No Change 0 09/30/2018 1:00 PM CDT 5 % (D5W) 1,000 mL IV infusion 6,760 mg (100 mg/kg ? 67.6 kg), Intravenous, CONTINUOUS, Starting on Wed09/30/18 at 1300, Until 10/01/18 at 0159 acetylcysteine (MUCOMYST) 6,760 mg New Bag 10/01/2018 1:58 AM CDT 6,760 mg 62 mL/hr in dextrose 5 % (D5W) 1,000 mL IV infusion 6,760 mg (100 mg/kg ? 67.6 kg), Intravenous, CONTINUOUS, Starting on 10/01/18 at 0200, Until 10/01/18 at 1759 bisacodyl (DULCOLAX) delayed released ta blet 5-15 mg 5-15 mg, oral, DAILY NEEDED, Starting on 10/01/18 at 0814, Until 10/02/18 at 1802, constipation gabapentin (NEURONTIN) capsule 300 mg Given 10/02/2018 7:56 AM CDT 300 mg 300 mg, oral, THREE TIMES A DAY, First dose on Wed09/30/18 at 1330, Until Discontinued Given 10/01/2018 9:31 PM CDT 300 mg Given 10/01/2018 1:29 PM CDT 300 mg gabapentin (NEURONTIN) capsule 300 mg Given 10/02/2018 8:27 AM CDT 300 mg 300 mg, oral, ONCE, 1 dose, On 10/02/18 at 0815 gabapentin (NEURONTIN) capsule 600 mg 600 mg, oral, THREE TIMES A DAY, First d ose (after last modification) on 10/02/18 at 1400, Until Discontinued ibuprofen tablet 600 mg Given 10/02/2018 11:27 AM CDT 600 mg 600 mg, oral, FOUR TIMES A DAY, First dose on 10/01/18 at 1200, Until Discontinued Given 10/02/2018 7:56 AM CDT 600 mg Given 10/01/2018 9:31 PM CDT 600 mg lidocaine (LMX-4) topical cream 1 Applic ation topical, NEEDED, Starting on 09/30 at 0441, Until 10/02/18 at 1802, IV start or restart if patient prefers a needleless local anesthetic. lidocaine 1% (PF) (XYLOCAINE) Given 09/30/2018 8:19 AM CDT 0.1 m L Right Forearm injection 0.1-0.3 mL 0.1-0.3 mL, Intradermal, NEEDED, Starting on Wed09/30/18 at 0441, Until 10/02/18 at 1802, IV start or restart lidocaine 1% / 8.4% sod bicarb (buffered lidocaine) syringe for IV starts 0.1-0.3 mL 0.1-0.3 mL, Intradermal, NEEDED, Starting on Wed at 0441, Until 10/02/18 at 1802, IV line placement, IV start or restart magnesium hydroxide (MILK OF MAGNESIA) s uspension 30 mL 30 mL, oral, DAILY NEEDED, Starting o n 10/01/18 at 0814, Until 10/02/18 at 1802, constipation, if no response after polyethylene glycol MAGNESIUM REPLACEMENT INTRAVENOUS - NOT FOR DOCUMENTATION PURPOSES Intravenous, PER PROTOCOL, Starting on Wed09/30/18 at 0745, Until 10/02/18 at 1802 magnesium sulfate 2 gram / 50mL (4%) IV New Bag 09/30/2018 11:44 A M CDT 2 g piggyback (PREMIX) 2 g 2 g, Intravenous, EVERY 2 HOURS (NS), 2 doses, First dose on Wed09/30/18 at 0800, Last dose on Wed09/30/18 at 1000 New Bag 09/30/2018 10:22 AM CDT 2 g magnesium sulfate 2 gram / 50mL (4%) IV New Bag 10/01/2018 2:15 PM CDT 2 g piggyback (PREMIX) 2 g 2 g, Intravenous, ONCE, 1 dose, On 10/01/18 at 1400 MORphine injection (conc: 4 mg/mL) 1-2 m g Given 09/30/2018 10:17 AM CDT 2 mg 1-2 mg, Intravenous, EVERY 1 HOUR NEEDED, Starting on Wed09/30/18 at 0452, Until Wed09/30/18 at 1038, For moderate to severe pain. Given 09/30/2018 9:12 AM CDT 2 mg Given 09/30/2018 8:06 AM CDT 2 mg MORphine injection (conc: 4 mg/mL) 2-4 m g Given 09/30/2018 1:32 PM CDT 4 mg 2-4 mg, Intravenous, EVERY 1 HOUR NEEDED, Starting on Wed09/30/18 at 1038, Until Wed09/30/18 at 1448, For moderate to severe pain. Given 09/30/2018 11:52 AM CDT 4 mg Given 09/30/2018 10:48 AM CDT 4 mg MORphine injection (conc: 4 mg/mL) 2-4 m g Given 10/01/2018 9:53 AM CDT 4 mg 2-4 mg, Intravenous, EVERY 3 HOURS NEEDED, Starting on Wed09/30/18 at 1500, Until 10/01/18 at 1051, For moderate to severe pain. Given 10/01/2018 8:08 AM CDT 2 mg Given 10/01/2018 5:00 AM CDT 4 mg ondansetron (ZOFRAN) injection 4-8 mg Given 10/01/2018 2:14 PM CDT 4 mg 4-8 mg, Intravenous, EVERY 8 HOURS NEEDED, Starting on Wed09/30/18 at 0447, Until Wed10/02/18 at 1802, nausea & vomiting oxyCODONE (immediate release) (ROXICODONE) Given 10/02/2018 11:2 7 AM CDT 10 mg tablet 5-10 mg 5-10 mg, oral, EVERY 4 HOURS NEEDED, Starting on 10/01/18 at 1322, Until Wed10/02/18 at 1802, Pain, when taking PO Given 10/02/2018 7:20 AM CDT 10 mg Given 10/02/2018 3:38 AM CDT 10 mg polyethylene glycol (MIRALAX) packet 17 g 17 g, oral, DAILY NEEDED, Starting on 10/01/18 at 0814, Until 10/02/18 at 1802, constipation, if no response to bisacodyl 15mg. potassium chloride (K-DUR) extended release Given 09/30/2018 9:16 AM CDT 40 mEq tablet 40 mEq 40 mEq, oral, ONCE, 1 dose, On Wed09/30/18 at 0800 potassium chloride (K-DUR) extended release Given 09/30/2018 6:51 PM CDT 40 mEq tablet 40 mEq 40 mEq, oral, EVERY 4 HOURS (NS), 2 doses, First dose on Wed09/30/18 at 1545, Last dose on Wed09/30/18 at 1945 Given 09/30/2018 4:17 PM CDT 40 mEq potassium chloride (K-DUR) extended release Given 10/01/2018 4:19 PM CDT 40 mEq tablet 40 mEq 40 mEq, oral, ONCE, 1 dose, On 10/01/18 at 1545 POTASSIUM REPLACEMENT INTRAVENOUS - NOT FOR DOCUMENTATION PURPOSES Intravenous, PER PROTOCOL, Starting on Wed09/30/18 at 0745, Until Wed10/02/18 at 1802 POTASSIUM REPLACEMENT ORAL - NOT FOR DOC UMENTATION PURPOSES oral, PER PROTOCOL, Starting on 09/30 at 0745, Until Wed10/02/18 at 1802, May request packets if patient requires liquid potassium. senna (SENOKOT) tablet 1-2 tablet Given 10/02/2018 7:55 AM CDT 2 tablets 1-2 tablet, oral, TWICE A DAY, First dose on 10/01/18 at 0815, Until Discontinued Given 10/01/2018 7:12 PM CDT 2 tablets Given 10/01/2018 11:24 AM CDT 2 tablets sodium chloride 0.9 % IV BOLUS New Bag 09/30/2018 8:07 AM CDT 1,000 mL 1000 mL/hr 1,000 mL 1,000 mL, Intravenous, ONCE, 1 dose, On Wed09/30/18 at 0745, Administer over 60 Minutes sodium chloride 0.9 % IV BOLUS New Bag 09/30/2018 3:37 PM CDT 1,000 mL 1000 mL/hr 1,000 mL 1,000 mL, Intravenous, ONCE, 1 dose, On Wed09/30/18 at 1500, Administer over 60 Minutes documented in this encounter Active and Recently Administered Medications Times are shown in CDT. Scheduled Medication Order 09/30/2018 10/01/2018 10/02/2018 saline FLUSH syringe 10 mL 0600 (Canceled Entry - Pr ovider: Amy Talamantes RN)1400 (Given - Provider: Ciara Booker RN)2206 (Given - Provider: Marli Girard RN) 0501 (Given - Provider: Carol Parker RN)1329 (Not Given - Provider: Evi Londono RN - Reason: Clinically appropriate (comment))213 (Given - Provider: Marli Girard RN) 0600 (Canceled Entry - Provider: Andreas Paul RN) 10 mL, Intravenous, EVERY 8 HOURS, First dose on Wed09/30/18 at 0600, Until Discontinued gabapentin (NEURONTIN) capsule 300 mg (CANCELED) 1337 (Given - Provider: Ciara Booker RN)2205 (Given - Provider: Marli Girard RN) 0808 (Given - Provider: Evi Londono RN)132 (Given - Provider: Evi Londono RN)213 (Given - Provider: Marli Girard RN) 0756 (Given - Provider: Jyoti Bella RN) 300 mg, oral, THREE TIMES A DAY, First d ose on Wed09/30/18 at 1330, Until Discontinued gabapentin (NEURONTIN) capsule 300 mg (COMPLETED) 0827 (Given - Provider: Jyoti Bella RN) 300 mg, oral, ONCE, 1 dose, On 10/02/18 at 0815 gabapentin (NEURONTIN) capsule 600 mg 600 mg, oral, THREE TIMES A DAY, First d ose on Wed10/02/18 at 1400, Until Discontinued ibuprofen tablet 600 mg 1125 (Given - Pr ovider: Evi Londono RN)1750 (Given - Provider: Marli Girard RN)213 (Given - Provider: Marli Girard RN) 0756 (Given - Provider: Jyoti Bella RN)1127 (Given - Provider: Jyoti Bella RN) 600 mg, oral, FOUR TIMES A DAY, First do se on Wed10/01/18 at 1200, Until Discontinued MAGNESIUM REPLACEMENT INTRAVENOUS - NOT FOR DOCUMENTATION PURPOS ES Intravenous, PER PROTOCOL, Starting Wed09/30/18 at 0745, Until 10/02/18 at 1802 magnesium sulfate 2 gram / 50mL (4%) IV piggyback (PRE MIX) 2 g (COMPLETED) 1022 (New Bag - Provider: Ciara Booker, RN)1144 (New Bag - Provider: Aaliyah Mistry RN) 2 g, Intravenous, EVERY 2 HOURS (NS), 2 doses, First dose on Wed09/30/18 at 0800, Last dose on Wed09/30/18 at 1000 magnesium sulfate 2 gram / 50mL (4%) IV piggyback (PREMIX) 2 g (COMPLETED) 1415 (New Bag - Provider: Evi Londono RN) 2 g, Intravenous, ONE TIME DOSE, 1 dose, 10/01/18 at 1400 potassium chloride (K-DUR) extended release tablet 40 mEq (COMPLETED) 0916 (Given - Provider: Ciara Booker RN) 40 mEq, oral, ONE TIME DOSE, 1 dose, Wed09/30/18 at 0800 potassium chloride (K-DUR) extended release tablet 40 mEq (COMPLETED) 1617 (Given - Provider: Marli Girard RN)1851 (Given - Provider: Marli Girard RN) 40 mEq, oral, EVERY 4 HOURS (NS), 2 dose s, First dose on Wed09/30/18 at 1545, Last dose on Wed09/30/18 at 1945 potassium chloride (K-DUR) extended release tablet 40 mEq (C OMPLETED) 1619 (Given - Provider: Marli Girard RN) 40 mEq, oral, ONCE, 1 dose, On 10/01/18 at 1545 POTASSIUM REPLACEMENT INTRAVENOUS - NOT FOR DOCUMENTATION PURPOS ES Intravenous, PER PROTOCOL, Starting Wed09/30/18 at 0745, Until Wed10/02/18 at 1802 POTASSIUM REPLACEMENT ORAL - NOT FOR DOCUMENTATION PURPOSES oral, PER PROTOCOL, Starting Wed09/30/18 at 0745, Until 10/02/18 at 1802, May request packets if patient requires liquid potassium. senna (SENOKOT) tablet 1-2 tablet 1124 ( Given - Provider: Evi Londono RN)1912 (Given - Provider: Marli Girard, MARIAA) 0755 (Given - Provider: Jyoti Bella, MARIAA) 1-2 tablet, oral, TWICE A DAY, First dos e on 10/01/18 at 0815, Until Discontinued sodium chloride 0.9 % IV BOLUS 1,000 mL (COMPLETED) 08 07 (New Bag - Provider: Aaliyah Mistry, MARIAA) 1,000 mL, Intravenous, ONE TIME DOSE, 1 dose, Wed09/30/18 at 0745, Administer over 60 Minutes sodium chloride 0.9 % IV BOLUS 1,000 mL (COMPLETED) 15 37 (New Bag - Provider: Marli Girard RN)1647 (Stopped - Provider: Magaly Forde RN) 1,000 mL, Intravenous, ONCE, 1 dose, On Wed09/30/18 at 1500, Administer over 60 Minutes Continuous Medication Order 09/30/2018 10/01/2018 10/02/2018 acetylcysteine (MUCOMYST) 3,380 mg in de xtrose 5 % (D5W) 500 mL IV infusion () 0500 (No Change - Provider: Amy Talamantes, MARIAA) 3,380 mg (50 mg/kg ? 67.6 kg), Intravenous, CONTINUOUS, Starting Wed09/30/18 at 0500, Until Wed09/30/18 at 0859 acetylcysteine (MUCOMYST) 6,760 mg in de xtrose 5 % (D5W) 1,000 mL IV infusion (CANCELED) 0912 (New Bag - Provider: Aaliyah Mistry RN) 6,760 mg (100 mg/kg ? 67.6 kg), Intravenous, CONTINUOUS, Starting Wed09/30/18 at 0700, Until Wed09/30/18 at 1129 acetylcysteine (MUCOMYST) 6,760 mg in de xtrose 5 % (D5W) 1,000 mL IV infusion () 1300 (No Change - Provider: Ciara Booker, MARIAA) 6,760 mg (100 mg/kg ? 67.6 kg), Intravenous, CONTINUOUS, Starting Wed09/30/18 at 1300, Until 10/01/18 at 0159 acetylcysteine (MUCOMYST) 6,760 mg in de xtrose 5 % (D5W) 1,000 mL IV infusion () 0158 (New Bag - Provider: Carol olson RN) 6,760 mg (100 mg/kg ? 67.6 kg), Intravenous, CONTINUOUS, Starting 10/01/18 at 0200, Until 10/01/18 at 1759 PRN Medication Order 09/30/2018 10/01/2018 10/02/2018 saline FLUSH syringe 10 mL 0524 (Given - Provider: eGe Talamantes, RN)0807 (Given - Provider: Aaliyah Mistry, RN)0819 (Given - Provider: Yolanda Sheehan, RN) 0127 (Given - Provider: Carol Parker, MARIAA)0809 (Given - Provider: Evi Londono, RN)0954 (Given - Provider: Evi Londono, RN)1415 (Given - Provider: Evi Londono, RN) 0340 (Given - Provider: Andreas Paul, MARIAA) 10 mL, Intravenous, NEEDED, Starting 09/30/18 at 0441, Until 10/02/18 at 1802, Line Care bisacodyl (DULCOLAX) delayed released tablet 5-15 mg 5-15 mg, oral, DAILY NEEDED, Starting 10/01/18 at 0814, Until 10/02/18 at 1802, Constipation lidocaine (LMX-4) topical cream 1 Application Topical, NEEDED, Starting 09/30/18 at 0441, Until 10/02/18 at 1802, IV start or restart if patient prefers a needleless local anesthetic. lidocaine 1% (PF) (XYLOCAINE) injection 0.1-0.3 mL 081 9 (Given - Provider: Yolanda Sheehan, MARIAA) 0.1-0.3 mL, Intradermal, NEEDED, Star ting 09/30/18 at 0441, Until 10/02/18 at 1802, IV start or restart lidocaine 1% / 8.4% sod bicarb (buffered lidocaine) syringe for IV starts 0.1- 0.3 mL 0.1-0.3 mL, Intradermal, NEEDED, Star ting 09/30/18 at 0441, Until 10/02/18 at 1802, IV line placement, IV start or restart magnesium hydroxide (MILK OF MAGNESIA) suspension 30 mL 30 mL, oral, DAILY NEEDED, Starting S at 10/01/18 at 0814, Until 10/02/18 at 1802, Constipation, if no response after polyethylene glycol MORphine injection (conc: 4 mg/mL) 1-2 mg (CANCELED) 0 522 (Given - Provider: Amy Talamantes RN)0806 (Given - Provider: Aaliyah Mistry RN)0912 (Given - Provider: Aailyah Mistry RN)1017 (Given - Provider: Ciara Booker RN) 1-2 mg, Intravenous, EVERY 1 HOUR NEE DED, Starting 09/30/18 at 0452, Until 09/30/18 at 1038, For moderate to severe pain. MORphine injection (conc: 4 mg/mL) 2-4 mg (CANCELED) 1 048 (Given - Provider: Ciara Booker RN)1152 (Given - Provider: Aaliyah Mistry RN)1332 (Given - Provider: Ciara Booker, MARIAA) 2-4 mg, Intravenous, EVERY 1 HOUR NEE DED, Starting 09/30/18 at 1038, Until 09/30/18 at 1448, For moderate to severe pain. MORphine injection (conc: 4 mg/mL) 2-4 mg (CANCELED) 1 544 (Given - Provider: Marli Girard RN)1851 (Given - Provider: Marli Girard RN)2206 (Given - Provider: Marli Girard RN) 0125 (Given - Provider: Carol Parker, MARIAA)0500 (Given - Provider: Carol Parker, RN)0808 (Given - Provider: Evi Londono, RN)0953 (Given - Provider: Evi Londono, RN) 2-4 mg, Intravenous, EVERY 3 HOURS NE EDED, Starting 09/30/18 at 1500, Until 10/01/18 at 1051, For moderate to severe pain. ondansetron (ZOFRAN) injection 4-8 mg 14 14 (Given - Provider: Evi Londono, RN) 4-8 mg, Intravenous, EVERY 8 HOURS NE EDED, Starting 09/30/18 at 0447, Until 10/02/18 at 1802, Nausea & Vomiting oxyCODONE (immediate release) (ROXICODONE) tablet 5-10 mg 1329 (Given - Provider: Evi Londono, RN)1506 (Given - Provider: Evi Londono RN)1912 (Given - Provider: Marli Girard, MARIAA)2318 (Given - Provider: Marli Girard, MARIAA) 0338 (Given - Provider: Andreas Paul, RN)0720 (Given - Provider: Andreas Paul, MARIAA)1127 (Given - Provider: Jyoti Bella RN) 5-10 mg, oral, EVERY 4 HOURS NEEDED, Starting 10/01/18 at 1322, Until 10/02/18 at 1802, Pain, when taking PO polyethylene glycol (MIRALAX) packet 17 g 17 g, oral, DAILY NEEDED, Starting Sa t 10/01/18 at 0814, Until 10/02/18 at 1802, Constipation, if no response to bisacodyl 15mg. documented in this encounter Care Teams Cell Assembly Pinner Relationship Specialty Start Date End Date [facility], [facility] PCP - General 09/30/18 [place] [address] [place] [id number] [facility] PCP - Primary Care Clinic 9 [place] [address] [place] [phone] documented as of this encounter
--- OUTSIDE RECORDS SUMMARY | 2021-12-28 23:36 | XMS_ITS | Encounter Summary ---
:1990 Author Organization [employer] Address [address] [place] [address] Care Team Providers Name Role Phone [facility], [facility] Primary Care Provider [phone] [facility] Unavailable [phone] Encounter Details Date Type Department Care Team Description 09/30/2018 Travel Social History Tobacco Use Types Packs/Day Years Used Date Smoking Tobacco: Some Days Cigarettes 0.1 5 S tarted: 2013 Smokeless Tobacco: Never Comments: Currently smokes 1 cigarettes every 2 [...] on file documented as of this encounter Plan of Treatment Not on filedocumented as of this encounter Visit Diagnoses Not on filedocumented in this encounter Care Teams Demo Coordinator Relationship Specialty Start Date End Date [facility] PCP - General 09/30/18 [place] [address] [id number] [facility] PCP - Primary Care Clinic [address] [place] [address] [place] [address] documented as of this encounter
--- OUTSIDE RECORDS SUMMARY | 2021-12-28 23:36 | XMS_ITS | Encounter Summary ---
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 documented as of this encounter Plan of Treatment Not on filedocumented as of this encounter Visit Diagnoses Not on filedocumented in this encounter
--- OUTSIDE RECORDS SUMMARY | 2021-12-28 23:36 | XMS_ITS ---
:1990 Author Care Team Providers Name Role Phone STEPHANIE RODRIGUEZ AMILCAR Nurse Practitioner [phone] Parris Knight (mother) Patient Designee [phone] HEYDI BHAGAT MD Transplant Editorial Assistant [phone] [facility] CARE TEAM Palliative Care [phone] TAYLOR PAUL RN Palliative Care [phone] [facility] Palliative Care [phone] DOMINICK TODD MD Primary Care Provider [phone] CORNELL AR[facility]A [facility] Meat Smoker [phone] Allergies Code Code System Name Reaction Severity Status Onset RxNorm Azithromycin ? ? Active ? Medications Name Status Start Date Stop Date ? ? b-1 100 mg tabs Active ? Not available celecoxib 200 mg capsule Completed ? 022 ciprofloxacin 500 mg tablet Completed ? 11/01 TAKE 1 TABLET BY MOUTH EVERY MORNING BEFORE BREAKFAST diazepam 5 mg tablet Completed ? 10/14/2021 TAKE 1 TABLET BY MOUTH AT BEDTIME diclofenac 1 % topical gel Active ? Not a vailable APPLY 2 GRAMS TOPICALLY FOUR TIMES DAILY TO PAINFUL AREA ergocalciferol (vitamin D2) 1,250 mcg (50,000 unit) Active ? Not available capsule folic acid 1 mg tablet Active ? Not avail able TAKE 1 TABLET BY MOUTH DAILY furosemide 20 mg tablet Active ? Not avai lable TAKE 2 TABLETS BY MOUTH DAILY furosemide 40 mg tablet Completed ? 11/28/19 TAKE 1 TABLET BY MOUTH EVERY DAY gabapentin 100 mg capsule Completed ? 2021 TAKE 2 CAPSULES BY MOUTH THREE TIMES DAILY gabapentin 300 mg capsule Active ? Not av ailable Take by mouth 3 (three) times a day. Ta kes 600 mg in the morning, 600 mg in the afternoon, and 900 mg at bedtime. gabapentin 600 mg tablet Active ? Not yanique ilable hydroxyzine HCl 25 mg tablet Completed ? TAKE 1 TO 2 TABLETS BY MOUTH AT BEDTIME lactulose 10 gram/15 mL oral solution Active ? Not available lidocaine 5 % topical patch Active ? Not available APPLY 1 PATCH BY TOPICAL ROUTE ONCE DAILY x 14 days. Apply to l eg lorazepam 1 mg tablet Active ? Not availa ble TAKE 1 TABLET BY MOUTH ONCE FOR [address]KE [address]FORE [address] SCAN ONC E magnesium 400mg capsules Completed ? 022 TAKE 1 CAPSULE BY MOUTH TWICE DAILY magnesium oxide 400 mg (241.3 mg magnesium) tablet Active ? Not available TAKE 1 TABLET BY MOUTH TWICE DAILY marijuana (cannabis) Active ? Not availab le Apply 1 each topically daily. Med Name: Medical Cannabis [place] (50 mg THC/oz) 0.2% THC/CBD <0.1% marijuana (cannabis) buds/leaves for smoking Active ? Not available Inhale 1 each as needed. Med Name: Medi ada Cannabis Flower, smoking once weekly as needed for sleep; details unclear metronidazole 500 mg tablet Completed ? 10/01 nicotine (polacrilex) 2 mg buccal lozenge Active ? Not available APPLY 1 LOZENGE TO CHEEK NEEDED FOR SMOKING CESSATION ondansetron 4 mg disintegrating tablet Completed ? 10/14/2021 ondansetron 8 mg disintegrating tablet Active ? Not available oxycodone 5 mg tablet Active ? Not availa ble TAKE 1/2 TO 1 TABLET BY MOUTH TWICE DAILY NEEDED FOR PAIN pantoprazole 40 mg tablet,delayed release Active ? Not available TAKE 1 TABLET BY MOUTH EVERY DAY Paxlovid 300 mg (150 mg x 2)-100 mg tablets in a dose pack (EUA) Completed ? 10/14/2021 TAKE THREE TABLETS BY MOUTH TWICE A DAY; DIRECTED ON MEDICAI TON PACKAGE phytonadione (vitamin K1) 5 mg tablet Active ? Not available TAKE 2 TABLETS BY MOUTH EVERY DAY promethazine 25 mg tablet Completed ? 2021 ropinirole 1 mg tablet Completed ? TAKE 1 TABLET BY MOUTH AT BEDTIME ropinirole 2 mg tablet Active ? Not avail able sodium bicarbonate 650 mg tablet Completed ? 10/14/2021 spironolactone 100 mg tablet Active ? Not available spironolactone 25 mg tablet Completed ? 10/01 TAKE 1 TABLET BY MOUTH DAILY spironolactone 50 mg tablet Active ? Not available Take 2 tablets (100 mg total) by mouth daily. sulfamethoxazole 800 mg-trimethoprim 160 mg tablet Active ? Not available TAKE 1 TABLET BY MOUTH EVERY DAY thiamine HCl (vitamin B1) 100 mg tablet Active ? Not available TAKE 1 TABLET BY MOUTH DAILY tramadol 50 mg tablet Completed ? 10/14/2021 TAKE 1 TABLET BY MOUTH EVERY 6 HOURS NEEDED trazodone 50 mg tablet Active ? Not avail able TAKE 1 TABLET BY MOUTH EVERY DAY vitamin A 10,000 unit capsule Active ? No t available Vitamin B-1 (mononitrate) 100 mg tablet Completed ? 10/14/2021 TAKE 1 TABLET BY MOUTH DAILY Xifaxan 550 mg tablet Active ? Not availa ble TAKE 1 TABLET BY MOUTH TWICE DAILY zinc sulfate 50 mg zinc (220 mg) capsule Active ? Not available TAKE 1 CAPSULE BY MOUTH DAILY Problems Name Status Onset Date Source ? [...] Active 0 11/27/2021 ? Procedures None recorded. Results Lab Results None recorded. Past Encounters 12/01/2021 Stephanie Rodriguez NP: [address] [place] [address], Ph. 11/27/2021 Taylor Paul RN: [address] [place] [address], Ph. 11/05/2021 Stephanie Rodriguez NP: [address] [place] [address], Ph. 10/14/2021 Evi Biggs LPN: [address] [place] [address], Ph. Social History None recorded. Vaccine List None recorded. Plan of Care Patient Instructions Patient instructed to call with [employer] or concerns. Patient instructed to call with [employer] or concerns. Reminders Provider Appointments None recorded. ? ? Lab None recorded. ? ? Referral None recorded. ? ? Procedures None recorded. ? ? Surgeries None recorded. ? ? Imaging None recorded. ? ? Vitals Height Weight BMI Blood Pressure 5 ft 2 in 133 lbs 24.3 kg/m2 98/58 mm[Hg]
--- OUTSIDE RECORDS SUMMARY | 2021-12-28 23:36 | XMS_ITS | Encounter Summary ---
:1990 Author Care Team Providers Name Role Phone Ervin Schroeder MD Primary Care Provider [phone] Parris Knight (Mother) Patient Designee [phone] Jairo Rodriguez [employer] FORESTER Nurse Practitioner [phone] Matthew Rollins MD Transplant Legal Aid [phone] [facility] Care Team Palliative Care [phone] Taylor Paul RN Palliative Care [phone] Gela Goff [facility] Palliative Care [phone] Zenobia Kirby [facility] Head Custodian [phone] Reason for Visit JAN Continuation of Care Assessment and Plan Assessment Note provider called 3 times, no answer. Asking [facility] to try and reschedule appt. No services performed. Discussion Note: None recorded.Patient [...] rhinitis Information) Functional Status Unknown. Past Encounters 12/01/2021 Jairo Rodriguez NP: [address] [place] [address], Ph. 11/27/2021 Taylor Paul RN: [address] [place] [address], Ph. 11/05/2021 Jairo Rodriguez, URBAN FORESTER: [address], [place] [address], Ph. [phone] History of Present Illness Note: <div>provider called 3 times, no answer. </div><div>Asking [facility] to try and reschedule appt. </div><div>No services performed.
</div> Review of Systems None recorded. Physical Exam None recorded.
--- OUTSIDE RECORDS SUMMARY | 2021-12-28 23:36 | XMS_ITS | Encounter Summary ---
:1990 Author Organization [address] [address] Phone Care Team Providers Name Role Phone Unavailable Primary Care Provider Unavailable Encounter Details Date Type Department Care Team Description 07/15/2021 Nurse Triage [facility] Cary Segura, RN [facility] [address] [place] [address] [place] [address] Social History Tobacco Use Types Packs/Day Years Used Date Smoking Tobacco: Never Assessed Sex Assigned at Date Recorded Not on file COVID-19 Exposure Response Date Recorded In the last 10 days, have you been in contact with No / Unsu re 07/08/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 documented as of this encounter Miscellaneous Notes Telephone Encounter - Cary Segura RN - 07/15/2021 9:06 AM CDT D: Telephone call received from patient questioning why she was not give blood when she was transferred [place] [facility]. A: Spoke with caller and advised her providers felt that her blood work was at baseline during the visit and advised her to follow up with her PCP for her scheduled appointment next day. R/P: Caller verbalized a understanding of the content being delivered. documented in this encounter Plan of Treatment Not on filedocumented as of this encounter Visit Diagnoses Not on filedocumented in this encounter
--- OUTSIDE RECORDS SUMMARY | 2021-12-28 23:36 | XMS_ITS | Encounter Summary ---
:1990 Author Care Team Providers Name Role Phone Ervin Schroeder MD Primary Care Provider [phone] Parris Knight (Mother) Patient Designee [phone] Jairo Rodriguez PARARESCUE MANAGER Nurse Practitioner [phone] Matthew Rollins MD Transplant Stud Beef Cattle Farmer [phone] [facility] Team Palliative Care [phone] Taylor Paul RN Palliative Care [phone] Gela Goff [facility] [phone] Zenobia Kirby [facility] Men'S Leather Dress Belt Maker [phone] Reason for Visit Transition of Care Assessment and Plan Assessment Note Evaluation: Nurse placed call to check in after discharging home from hospital yesterday. Patient reports her homecare nurse was here today. She comes weekly to help set up medications and check in. Danie albright reports they are checking with ins urance to see if the nurse can come twice weekly. Patient reports she is feeling good today, reports her appetite has been good. Reports she is tired and weak from being in the hospital for so long. Reports she is waitng for the prior auth to go throug for her lidoderm patches. Patient stated she was told from provider at hospital if it takes to long to get approved she can go purchase the Lidoderm 4% patches over the counter. Patient is to apply to leg daily x 14 days. Reports her boyfriend will be home with her the rest of the week and he will be returning to work next week. Reports she feels she can care for herself during the day. Scheduled PARARESCUE MANAGER follow up for next week. Nurse advised patient to call Alexandre back with any questions, concerns, new or worsening symptoms. Patient voiced understanding and agreed with plan. Recent changes: Cipro stopped, started B actrim 800/160mg daily, started lidoderm patches 5% x 14 days, started Zinc 50mg daily for 28 days. - Tylernofsky score: 70 = Cares for self; unable to carry on normal activity or to do active work. Action: Encouragement and emotional supp ort provided. Reminded patient on Alexandre's 23/11 availab ility of a licensed electrician to provide immediate guidance over the phone and receive personalized advice on the next steps. Encouraged patient to call if any concerns or symptoms arise. SOCO?S 4 PILLARS: Medication Management: Meds and instruct ions reviewed and discussed. Personal Health Record: Med list and dis charge summary provided to patient from hospital. Follow-up Appointment: with Hakan FITZGERALD at 1pm Knowledge of Red Flags: Symptoms and jorge e effects were reviewed and discussed with patient. Patient verbalized understanding. Action: Encouragement, emotional support , and therapeutic listening provided. Encouraged patient to outreach with any questions or concerns. Resources, Referrals, Education provided. Next Steps: Patient outreach in [facility] 3-4 weeks. [Research resources]. Taylor Paul RN Discussion Note: None recorded.Patient educational handouts: No information available. Plan of Care Patient Instructions Patient instructed to call with alexio ns or concerns. Reminders Provider Appointments None [...] rhinitis Information) Functional Status Unknown. Past Encounters 11/27/2021 Taylor Paul RN: [place] [address], Ph. 11/05/2021 Jairo Rodriguez PARARESCUE MANAGER: [place] [address], Ph. History of Present Illness Note: <div>Contact: Nurse performed follow-up visit via {{phone* face to face video}}. Patients' name and date of verified. </div><div>Patient story is presented {{entirely primarily*}} by the {{patient* patient's brother patient's dxhjbrk-ed-xkj patient's caregiver patient's daughter patient's ujvkaitl-bg-pfy patient's friend patient's grandchild patient's patient's sister patient's fvvmmh-oy-koe patient's son patient's son-in-law patient's }} . 31 year-old, {{female* male}} with a reported history of alcoholic cirrhosis and acute respiratory failure who ap pears {{alert, oriented and answering questions appropriately* confused and not answering questions appropriately}}. </div><div>
</div><div>Start time: {{ 3:00pm#}} Stop time: {{ 3:20pm#}}</div><div>Clinician Located: {{Clinician Home Address* [place] Office Address Patient?s Home Address}} </div><div>Patient physically located at: {{Patient's Home Address* FDC Location, Name of Facility, City/State SNF Location, Name of Facility, City/State LTC Location, Name of Facility, City/State Other Location, City, State}}</div><div>
</div> Review of Systems None recorded. Physical Exam None recorded.
--- OUTSIDE RECORDS SUMMARY | 2021-12-28 23:36 | XMS_ITS | Clinical Summary ---
:1990 Author Organization [employer] Address [address] [place], [place] [address] [address] Phone Care Team Providers Name Role Phone Unavailable Primary Care Provider Unavailable Source Comments [employer] is fully rolled out on [employer]. Last update 10/05/08.[employer] Allergies Active Allergy Reactions Severity Noted Date Comments Azithromycin Unknown 07/08/2021 Medications Be aware that medications may not be up to date as of this document. Always verify current medications with patient. Medication Sig Dispensed Refills Start Date End Date Status folic acid (FOLIC ACID) 1 Take 1 mg by 0 Active mg oral TABS mouth daily. magnesium oxide (MAG-OX) Take 400 mg by 0 Active 400 MG oral TABS mouth twice daily. thiamine (VITAMIN B1) 100 Take 100 mg by 0 Active mg oral TABS mouth daily. spironolactone Take 50 mg by 0 A ctive (ALDACTONE) 50 mg oral mouth daily. tablet pantoprazole (PROTONIX) Take 40 mg by 0 Active 40 mg oral tablet mouth daily. furosemide (LASIX) 20 mg Take by mouth 0 Active oral TABS daily. rifAXIMin (XIFAXAN) 550 Take 550 mg by 0 Active mg oral tablet mouth twice daily. GABApentin (NEURONTIN) Take 600 mg by 0 Active 300 mg oral capsule mouth 3 times daily. ERGOcalciferol (VITAMIN Take 50,000 0 Active D) 50,000 UNITS oral UNITS by mouth capsule every week. ciprofloxacin (CIPRO) 500 Take 500 mg by 0 Active mg oral TABS mouth daily. lactulose (CONSTULOSE) 10 Take 45 mL by 0 01/31/2021 Active g/15 mL oral solution mouth 3 times daily. oxyCODONE (ROXICODONE) 5 Take 2.5-5 mg 0 06/19/2021 Active mg oral tablet by mouth twice daily as needed. traMADol (ULTRAM) 50 mg Take 50 mg by 0 06/11/2021 Active oral TABS mouth every 6 hours as needed. Social History Tobacco Use Types Packs/Day Years Used Date Smoking Tobacco: Never Assessed Sex Assigned at Date Recorded Not on file Last Filed Vital Signs Vital Sign Reading Time Taken Comments Blood Pressure 114/67 07/08/2021 4:03 PM RAM CAR OPERATOR Pulse 82 07/08/2021 4:03 PM RAM CAR OPERATOR Temperature 36.9 ??C (98.5 ??F) 07/08/2021 6:31 AM RAM CAR OPERATOR Respiratory Rate 16 07/08/2021 4:03 PM RAM CAR OPERATOR Oxygen Saturation 98% 07/08/2021 4:03 PM RAM CAR OPERATOR Inhaled Oxygen Concentration - - Weight - - Height - - Body Mass Index - - Plan of Treatment Health Maintenance Due Date Last Done Comments Dental Oral Exam 1990 Dental Prophylaxis 1990 Dental X-Ray: Bitewings 1990 Periodontal Maintenance 2004 HIV Screening 2005 PREVENTATIVE VISIT 2008 HEALTH MAINTENANCE PROTOCOL 2009 Cervical Cancer Screening Age 0307/09/2020 30-65 COVID-19 Vaccine (3 - Booster for 09/13/2021 04/15/2021, Pfizer series) INFLUENZA VACCINE 01/01/2022 03/07/2014, 02/26/2009, 03/26/2008, Additional history exists TD/TDAP ADULTS 03/07/2024 03/07/2014, 09/08/2002, 05/26/1995, Additional history exists HIB Completed 02/08/1992, 06/01/1991, 03/08/1991 Insurance Payer Benefit Plan Subscriber ID Effective Dates Phone Address Type / Group BLUE CROSS [employer]BS BLUE [id number] 2018-Sung [address] [address] [place] [address] (Home) [address] [place] [id number]
--- OUTSIDE RECORDS SUMMARY | 2021-12-28 23:36 | XMS_ITS | Encounter Summary ---
:1990 Author Care Team Providers Name Role Phone Dominick Todd MD Primary Care Provider [phone] Parris Knight (Mother) Patient Designee [phone] Jairo Rodriguez VENDING MACHINE COLLECTOR Nurse Practitioner [phone] Matthew Rollins MD Transplant Sky Diver [phone] [facility] Team Palliative Care [phone] Taylor Paul RN Palliative Care [phone] Gela Goff [facility] Palliative Care [phone] Zenobia Kirby [facility] [employer] Position Clerk [phone] Reason for Visit PC - Intake Visit Assessment and Plan Assessment Note [facility] @ 1300 Discussion Note: None recorded.Patient educational handouts: No information available. Plan of Care Patient Instructions Patient instructed to call with [employer] ns or concerns. Reminders Provider Appointments None [...] rhinitis Information) Functional Status Unknown. Past Encounters 10/14/2021 Evi Biggs LPN: [address] [facility], [place] [address], Ph. History of Present Illness Note: <div>{{name Catia Carias#}} is a new patient that had an Intake Visit today by [facility] palliative care & supportive care services. </div><div>
</div><div>General consent form reviewed, and {{Patient* HCA full name}} verbally gives consent for services, release of information and record sharing. Mailing to be sent out including Notice of Privacy Practices and a copy of the General consent information sheet for review. </div><div>&l t;br></div><div>{{Patient* HCA full name}} verbally gives permission to discuss health information with {{spouse/significant other (full name) son/daughter (full name) sibling, (full name) granddaughter/grandson, (full name) friend full name mother, Parris Knight#}} on {{dd/mm/yy 10/14/2021#}} at {{hh:mm 3:30#}} {{am pm PM#}}. </div><div>Patient designees documented under Care Team section of chart.</div><div>Evi Biggs LPN, CHPLN</div><div>
</div><div>This intake visit was conducted today with {{ Catia Adaskip#}}. All past medical history, current condition, and allergies were reported by {{ the patient.#}} Christelle is a friendly and pleasant 31 year old woman who reports the following:</div><div>
</div><div>
</div><div><strong>Reported Past Medical History:</strong> </div><div><strong>1.</strong> Cirrhosis Alcoholic: Christelle stated she was diagnosed with stage IV liver cirrhosis in January or January of last year. She is currently working with the transplant team at [facility]. Per record sharing, her last alcoholic drink was in July of 2020. </div><div>
</div><div>Christelle tells this principal technical writer she is taking herhealth very seriously. She reports as of recent she is having more bad days than good. She reports bilateral LE edema and feels exhausted. She is sleeping more. She moves slower due to the swelling in her legs and her balance is off. She denied falls, but at times uses the wall to steady herself. She reports she is in constant pain. She is prescribed medical marijuana through her PCP. She suffers from nausea. She has difficulty drinking water, stating it is too heavy, and drinks Spite/7-Up to help with the nausea. </div><div>
</div><div>Alexandre provider please note, patient is a part of the Restricted Recipient Program . Please call the [facility] unit for additional information. The telephone number is or [phone]. </div><div>
</div><div>Provider number [id number], DOMINICK TODD is a provider for a Restricted Recipient for: Physician Services , Nurse Practitioner Services </div><div>
</div><div>Provider number [id number], [facility] is a provider for a Restricted Recipient for: Physician Services , Nurse Practitioner Services , Diagnostic Lab </div><div>
</div><div>Provider number [id number], [facility] is a provider for a Restricted Recipient for: Physician Services , Inpatient Hospital , Outpatient Hospital, Diagnostic Lab </div><div>
</div><div>Provider number [id number],[id number] is a provider for a Restricted Recipient for: Pharmacy</div><div&g t;
</div><div>This principal technical writer confirmed with [facility] Clinical Toolroom Machinist and told Christelle due to her Restricted Recipient Program status, [facility]. [facility] and offer suggestions/feedback regarding her POC but would need to talk more about the limitations of their involvement with her current care team. Christelle verbalized understanding. </div><div>
</div><div>Medication and allergy list were entered from {{patient report record sharing record sharing and patient report*}}.</div><div> </div><div><strong>Hospitalizations:</strong></div><div>08/26/2021 - 08/27/2021: Intractable nausea and vomiting</div><div>08/02/2021 - 08/03/2021: (ED) Leg Swelling</div><div>07/25/2021 - 07/26/2021: (ED) ABD pain, N/V</div><div>07/08/2021: (ED) Ascites due to alcoholic hepatitis</di v><div>07/07/2021: (ED) Insomnia</div><div>07/06/2021: (ED) Fever</div><div> </div><div><strong>Social History:</strong> </div><div>- Interests: None stated</div><div>- Goals: Remain in good health for a successful liver t ransplant</div><div>- Social Supports: Family, boyfriend </div><div><br&gt ;</div><div><strong>Home Bound Status:</strong></div><div>- Distance patient can ambulate without taxing effort: Variable</div><div>- Current Home Care Services: No</div><div>- Name of Home Care Agency: NA</div><div>
</ div><div><strong>Barriers & Benefits:</strong></div><div>This principal technical writer notes patient may benefit from the following support given by [employer]:</div><d iv>- Pain/symptom management</div><div>- Assistance at home: Patient stated her family is not able to keep taking time off of work to help her</div><div>- DME order</div><div>- Mental/emotional support</div><div>- Financial support: Patient reports money is tight</div><div>- Caregiver support: Potentially for boyfriend and mother</div><div>- Care coordination</div><div>- 24/7 care support</div><div>
</div><div>This principal technical writer notes patient may have the following barriers:</div><div>- Low health literacy</div><div>- Acceptability</div><div>- Financial burdens</div><div>-Unemployment</div><div> </div><div><strong>Patient Portal:</strong></div><div>Patient {{did did not*}} sign up for the patient portal.</div><div><strong>Video Visit:</strong></div><div>Patient {{has* does not have}} the ability to participate in a video visit.</div><div>
</div><div>Alexandre was introduced to {{ Christelle#}} as a supportive and palliative care program. Our services and care model were explained and {{his her*}} questions answered. Patient verbalized understanding. Alexandre team to continue providing education regarding palliative care and the support provided by Alexandre. Patient was agreeable to an initial visit with {{his her*}} Alexandre provider todiscuss ongoing support and further needs.</div><div>
</div><div><strong>Plan:</strong></div><div>{{Patient*}} was given Alexandre 23/11 phone numberand instructed to call with questions or concerns. Initial Provider visit is scheduled for: 11/05/2021 @ 1300</div><div> </div><div>Record sharing {{was* was not}} activated at time of visit with consent from patient. Please see shared records for more information.</div>&l t;div>
</div><div>Signal Timer: Evi Biggs LPN, OG</div>&l t;div>
</div><div>
</div><div>
</div><div>Start time: {{ 1530#}} Stop time: {{ 1614#}}</div><div>
</div><div>Patient physically located at: {{Patient's Home Address* SNF Location, Name of Facility, City/State SNF Location, Name of Facility, City/State LTC Location, Name of Facility, City/State Other Location, City, State}} </div><div>
</div><div>
</di v><div>
</div> Review of Systems None recorded. Physical Exam None recorded.
== END 2021-12-28 23:39 | disposition home or self-care (01) ==
PROVIDERS: Emergency Provider Family Medicine; PCP Family Medicine
DX: K74.60 Unspecified cirrhosis of liver (principal); R10.9 Unspecified abdominal pain
CPT/HCPCS: 49083; 96374; 99284; A9270; J1885

== ENCOUNTER 2022-01-31 03:21 | Emergency (ER) | payer BC, SELFPAY ==
[2022-01-31] VITALS (8 sets, daily range): BP systolic 95–115; BP diastolic 48–82; PULSE 86–94; RESP 16–20; TEMP 36.8–37.6; O2SAT 89–98; BMI 24.5
--- NOTE | 2022-01-31 03:44 | ED_ITS ---
HPI - Abdominal Pain General Time Seen by Provider: 03:44 Date Seen: 01/31/22 Chief Complaint: Abdominal Pain Stated Complaint: Abdominal pain Time Seen by Provider: 01/31/22 03:26 Source: patient, EMS, RN notes reviewed and old records reviewed Mode of arrival: EMS Limitations: no limitations History of Present Illness HPI narrative: Catia is a 31-year-old female with a history her failure, hepatic encephalopathy, chronic pancreatitis and stage 4 chronic kidney disease who comes to the emergency room via EMS for evaluation regarding increasing back and abdominal pain. Patient notes being discharged from [facility] on January 22 after being diagnosed with acute kidney injury, receiving transfusions, albumin as well as having esophageal banding done. She also underwent paracentesis at that time and again 3 days ago. She notes that she awoke tonight with much worse than usual pain in her back now in both sides and in her lower abdomen. She notes that she feels very cold and she is nauseated. She states she is afraid to vomit because of the banding. EMS gave patient 50 mcg of fentanyl EN route and this did seem to help patient. EMS also placed oxygen as patient had low O2. Patient denies cough or cold and states that sometimes her oxygen levels are just low. She does have a sore throat but attributes this to the intubation for the banding procedure. Patient does not know if she has been running a fever. She denies dysuria hematuria. She has had normal stools. She is requesting pain medication. Does explain to me that she went off her narcotics and marijuana this summer as that was a requirement to get on the transplant list. She notes that she can take narcotics if she is in a hospital but they have never center home with narcotics. She received Dilaudid for pain while in [place] according to her Catia and her significant other. She has been sober for 1 year. Patient is also quite worried as she lives on a top floor apartment. Does not think that she will be able to climb though stairs in order to return. She states that she would be fine staying here in [place] for a few days at the hospital. Her medical care is through [facility]. Related Data Home Medications Medication Instructions Recorded Confirmed folic acid 1 mg tablet 1 mg PO QDAY 10/31/21 01/31/22 levonorgestrel 20 mcg/24 hours (7 1 device intrauterine ONCE 10/31/21 01/31/22 yrs) 52 mg intrauterine device furosemide 20 mg tablet 40 mg PO QAM 11/12/21 01/31/22 ondansetron 8 mg disintegrating 8 mg PO TID PRN 11/12/21 01/31/22 tablet thiamine HCl (vitamin B1) 100 mg 100 mg PO QDAY 11/12/21 01/31/22 tablet diazepam 5 mg tablet 5 mg PO HS 01/31/22 01/31/22 ergocalciferol (vitamin D2) 1,250 50,000 unit PO QWEEK 01/31/22 01/31/22 mcg (50,000 unit) capsule gabapentin 300 mg capsule 600 mg PO QHS 01/31/22 01/31/22 magnesium oxide 400 mg PO BID 01/31/22 01/31/22 promethazine 25 mg tablet 25 mg PO Q6H PRN 01/31/22 01/31/22 ropinirole 2 mg tablet 2 mg PO QHS 01/31/22 01/31/22 Previous Rx's Medication Instructions Recorded pantoprazole 40 mg tablet,delayed 40 mg PO QDAY #30 tabs 11/25/21 release rifaximin 550 mg tablet (Xifaxan) 550 mg PO BID #60 tabs 11/25/21 magnesium oxide 400 mg PO BID #180 caps 12/04/21 vitamin A 10,000 unit capsule 10,000 unit PO .COMPLEX #40 caps 12/04/21 zinc sulfate 50 mg zinc (220 mg) 50 mg PO QDAY #90 caps 12/04/21 capsule cyclobenzaprine 5 mg tablet 5 mg PO QDAY PRN muscle spasm #15 01/09/22 tabs acetaminophen 500 mg tablet 500 mg PO Q6H PRN pain #60 tabs 01/16/22 (Tylenol Extra Strength) cholecalciferol (vitamin D3) 10 10 mcg PO QDAY #30 caps 01/16/22 mcg (400 unit) capsule diclofenac sodium 1 % topical gel 2 g topical QID #100 grams 01/16/22 (Voltaren Arthritis Pain) lactulose 10 gram/15 mL oral 20 g (30 mL) PO TID #946 mL 01/16/22 solution lidocaine 5 % topical patch 1 patch topical QDAY #30 ea 09/16/22 spironolactone 50 mg tablet 50 mg PO QDAY #30 tabs 01/16/22 Allergies Allergy/AdvReac Type Severity Reaction Status Date / Time azithromycin Allergy Unknown Vomiting Verified 01/31/22 03:44 gabapentin Allergy Unknown Uncoded 12/28/21 22:18 Review of Systems Status of ROS Reports: 10 or more systems reviewed and unremarkable except as noted in History and below Const Reports: chills and fatigue; Denies: fever Eyes Denies: change in vision or blurry vision ENMT Reports: throat pain; Denies: throat swelling or difficulty swallowing Cardio Denies: chest pain, palpitations, swelling of feet/ankles or shortness of breath with exertion Resp Denies: shortness of breath or cough GI Reports: abdominal pain and nausea; Denies: vomiting, diarrhea, difficulty swallowing or blood in stool Denies: painful urination or urinary frequency Musculo Reports: back pain; Denies: extremity pain Neuro Denies: numbness in extremities Endo Reports: fatigue Allergy/Immuno Denies: throat swelling PFSH PFSH Medical History Abdominal ascites Allergic rhinitis Anemia in chronic kidney disease Attention deficit hyperactivity disorder (ADHD) Chronic leg pain Chronic pancreatitis (01/23/21) Congenital QT prolongation on electrocardiography (01/30/21) Gastroesophageal reflux disease without esophagitis (04/16/19) Generalized anxiety disorder with panic attacks Hepatic cirrhosis Hepatic encephalopathy Hepatic neuropathy History of migraine Insomnia Malpositioned intrauterine device (IUD) Patent foramen ovale (03/2020) Pyelonephritis Restless legs syndrome Stage 4 chronic kidney disease Tobacco abuse Vitamin D deficiency Surgical History History of foot surgery Status post hardware removal (06/27/19) Family History Father Hyperlipidemia Maternal Grandfather High blood pressure Prostate cancer Other Type 2 diabetes mellitus Social History Narrative: marijuana use single, no kids, Олег Ochoa, smoker, sober x 1 year Smoking Status: Former smoker Do you use any of these nicotine containing products: None Second hand tobacco smoke exposure: No How often do you have a drink containing alcohol: never AUDIT-C Alcohol total score: 0 Non-prescribed substance use: denies use Exam Const: Vital Signs, click to edit/add: Vital Signs - 24 hr 01/31/22 03:21 01/31/22 04:33 01/31/22 06:13 Temperature 99.7 F H 98.2 F Pulse Rate [Left P ulse Oximeter] 92 86 94 Respiratory Rate 16 20 Blood Pressure [Ri ght Upper Arm] 115/50 L 110/48 L 95/59 L Pulse Oximetry 92 95 95 Oxygen Delivery Me thod Room Air Nasal Cannula Oxygen Flow Rate 2 Documenting provider has reviewed patient's vital signs: yes Common normals: oriented x3 General appearance: cooperative and appears older than stated age Nutritional appearance: underweight Other: Patient is noted to have jaundice skin. She is fatigued in appearance. She is warm to the touch. HENMT: Common normals: head/scalp atraumatic and external nose normal Head and scalp: atraumatic Nose: external nose normal Mouth: oral and palatal mucosa normal Throat: posterior oropharynx normal Eye: Common normals: PERRL General eye: normal appearance of both eyes Pupil: PERRL Neck & C-Spine: Common normals: full ROM Resp: Common normals: normal respiratory effort Effort & inspection: able to speak in complete sentences Auscultation: diminished lung sounds bilateral (But greater on the right) in the lower lung zarco Cardio: Common normals: regular rate and regular rhythm Rate: regular rate Rhythm: regular rhythm GI: Inspection: abdominal distension Auscultation: normoactive bowel sounds Palpation: firm and tender (Throughout) Other: Left lateral abdomen with bandage in place from prior paracentesis. No surrounding erythema. : Bladder/kidney exam: CVA tenderness (Pain present bilaterally) Other: Tender throughout back in abdomen. Somewhat distractible. Back & Pelvis: General back: CVA tenderness (Pain present bilaterally) Extremity: Common normals: normal to inspection Neuro: Common normals: oriented x3 Sensorium/orientation: sensorium not fluctuating Speech: speech normal Psych: Common normals: mental status grossly normal, thought process normal and cooperative Thought process: normal thought process Skin: General skin exam: jaundice Course Course Hospital Course: At this time patient presents feeling very warm to the touch with increasing abdominal pain after recent paracentesis. Patient is in agreement that we will run labs including CBC, comprehensive panel, lactate, urinalysis. Will also obtain COVID swab. At this time patient does not appear to have fever. Blood cultures may also be in order if this changes. Patient is requesting pain medication. It appears that she has been using Dilaudid while she is at [facility]. Will give Dilaudid 0.25 mg IV and await lab values. Reevaluation(s) Reevaluation #1: Patient seems to be doing much better. When I enter the room she is on her phone. She is declining rectal exam for guaiac of stool. I do go over important laboratory findings including a decreased hemoglobin to 7.4 as well as INR elevated at 3.1. Reevaluation #2: We were able to obtain stool sample. That is negative for guaiac. Patient noted to states that she was having increasing pain. Begin breathing quickly and having panic attack. However she was also on her phone and texting her significant other. Somewhat distractible. Reevaluation #3: Patient stating this morning that she feels that she can go home and does not need to have paracentesis. I am asking her to stay until I speak with [facility] physician regarding CT comparison. Consultations Consultation #1: Dr. Maurer, room service food server and [facility], was consulted in regards to this patient. We were able to ascertain that patient's hemoglobin is today at 7.4 is consistent with previous values. He notes that [facility] was unsure of her source of anemia and she is due to see hematology. He does note that there were was banding done as patient had described. Dr. Maurer does state that we should go ahead with an abdominal CT. If unable to find source of pain he does suggest tap of the abdomen as she is at risk for SBP. Consultation with Dr. Bernard notes CT comparison to show slight worsening of the pleural effusion but improvement of the subcutaneous edema. Given how well patient looks, reassuring laboratory values and patient preference strongly con sidered, he does not think we need to go forward with the paracentesis. Does suggest doubling current doses of spironolactone and Lasix. Also asked that we provide Flexeril to the patient. Vital Signs Vital signs: Initial Vital Signs Temperature 99.7 F H 01/31/22 03:21 Temperature Source Temporal Artery Scan 01/31/22 03:21 Pulse Rate 92 01/31/22 03:21 Pulse Rhythm 01/31/22 03:21 Respiratory Rate 16 01/31/22 03:21 Blood Pressure 115/50 L 01/31/22 03:21 Blood Pressure Mean 71 01/31/22 03:21 Blood Pressure Position Supine 01/31/22 03:21 Pulse Oximetry 92 01/31/22 03:21 Oxygen Delivery Method 01/31/22 03:21 Vital Signs Temperature 99.7 F H 01/31/22 03:21 Pulse Rate 92 01/31/22 03:21 Respiratory Rate 16 01/31/22 03:21 Blood Pressure 115/50 L 01/31/22 03:21 Pulse Oximetry 92 01/31/22 03:21 Oxygen Delivery Method 01/31/22 03:21 Temperature 98.2 F 01/31/22 04:33 Pulse Rate 94 01/31/22 06:13 Respiratory Rate 20 01/31/22 06:13 Blood Pressure 95/59 L 01/31/22 06:13 Pulse Oximetry 95 01/31/22 06:13 Oxygen Delivery Method 01/31/22 06:13 Oxygen Flow Rate 2 01/31/22 06:13 MDM - Abdominal Pain MDM Narrative Medical decision making narrative: 1. Abdominal pain-patient is improved. She did receive Dilaudid 0.25 mg followed by 0.5 mg while in the ED. she thinks that her abdominal pain is process of bleed from the diarrhea as she has been using lactulose 3 times daily. Her white count and lactate are reassuring. She has not had a fever. Initially I had expected the need for a paracentesis to rule out SBP, but at this time she is feeling better. I do consult with [facility] physician in regards to her CT. It does show worsening pleural effusion but improvement of soft tissue edema. Suggestions from [facility] senior compensation consultant include increasing spironolactone back to 100 mg daily and Lasix back to 40 mg daily. It is also requested by that we provide Flexeril to patient. They suggest Flexeril 5 mg p.o. t.i.d. p.r.n.. We are able to do this through [facility]. 2. Anemia-this appears consistent with previous values. Guaiac of stool is negative. Recent banding done. 3. History of alcohol and drug abuse-sober x1 year. ETOH negative. 4. History of QT prolongation-patient did receive Zofran as I felt that that was superior to Ativan with history of chronic pain issues as well as hepatic failure. Patient had no evidence of arrhythmias during her time in the ED. 4. Disposition-patient is discharged home. She states that she wants to go home and feels that she is able to make it back to her apartment. Return as needed for worsening symptoms. Medical Records Attestation: I reviewed the patient's medical records. Lab Data Attestation: I reviewed the patient's lab results. Labs: Lab Results 01/31/22 01/31/22 01/31/22 Range/Units 04:15 04:15 04:15 WBC 4.36 L (4.50-11.00) K/uL RBC 2.15 L (4.00-5.20) m/uL Hgb 7.4 L* (12.0-16.0) gm/dL Hct 21.6 L (33.0-51.0) % MCV 101 H (80-100) fL MCH 34 (26-34) pg MCHC 34 (32-36) gm/dL Plt Count 51 L (140-440) K/uL Neut % (Auto) 66.3 (42.0-72.0) % Lymph % (Auto) 19.5 L (20-44) % [place] % (Auto) 12.2 H (0.0-11.0) % Eos % (Auto) 1.8 (0.0-7.0) % Baso % (Auto) 0.2 (0.0-3.0) % Neut # (Auto) 2.90 (1.7-7.0) K/uL Lymph # (Auto) 0.90 (0.90-2.90) K/uL [place] # (Auto) 0.50 (0.00-0.90) K/UL Eos # (Auto) 0.10 (0.00-0.50) K/uL Baso # (Auto) 0.00 (0.00-0.30) K/uL Abs Immat Gran (auto) 0.00 (0.00-0.30) K/uL INR (0.91-1.10) Sodium 138 (135-149) mmol/L Potassium 3.5 L (3.6-5.1) mmol/L Chloride 108 (96-114) mmol/L Carbon Dioxide 21 (20-32) mmol/L BUN 9 (5-24) mg/dL Creatinine 0.6 (0.5-1.5) mg/dL Estimated Creat Clear 107.45 Estimated GFR 123 ml/min Glucose 137 H (60-115) mg/dL Lactate 1.8 (0.5-1.9) mmol/L Calcium 8.7 (8.4-10.6) mg/dL Total Bilirubin 10.3 H (0.1-1.5) mg/dL AST 45 H (12-35) U/L ALT 17 (4-35) U/L Alkaline Phosphatase 231 H (40-150) U/L Total Protein 5.4 L (6.0-8.3) g/dL Albumin 3.4 (3.3-5.0) g/dL Amylase 64 (18-89) U/L Lipase 28 (23-300) U/L Urine Color (Yellow) Urine Appearance (Clear) Urine pH (5.0-8.5) Ur Specific [place] (1.000-1.030) Urine Protein (Negative) Urine Glucose (UA) (Negative) Urine Ketones (Negative) Urine Blood (Negative) Urine Nitrite (Negative) Urine Bilirubin (Negative) Urine Urobilinogen (0.2-1.0) Ur Leukocyte Esterase (Negative) Urine RBC (0-2) Urine WBC (0-5) Ur Squamous Epith Cells (None-Few) Urine Bacteria (None) Hyaline Casts (None-Few) Ethyl Alcohol < 0.01 L (0.01-0.03) % SARS-CoV-2 (PCR) (Negative) Influenza Type A (PCR) (Negative) Influenza Type B (PCR) (Negative) 01/31/22 01/31/22 01/31/22 Range/Units 04:15 04:15 05:30 WBC (4.50-11.00) K/uL RBC (4.00-5.20) m/uL Hgb (12.0-16.0) gm/dL Hct (33.0-51.0) % MCV (80-100) fL MCH (26-34) pg MCHC (32-36) gm/dL Plt Count (140-440) K/uL Neut % (Auto) (42.0-72.0) % Lymph % (Auto) (20-44) % [place] % (Auto) (0.0-11.0) % Eos % (Auto) (0.0-7.0) % Baso % (Auto) (0.0-3.0) % Neut # (Auto) (1.7-7.0) K/uL Lymph # (Auto) (0.90-2.90) K/uL [place] # (Auto) (0.00-0.90) K/UL Eos # (Auto) (0.00-0.50) K/uL Baso # (Auto) (0.00-0.30) K/uL Abs Immat Gran (auto) (0.00-0.30) K/uL INR 3.17 H (0.91-1.10) Sodium (135-149) mmol/L Potassium (3.6-5.1) mmol/L Chloride (96-114) mmol/L Carbon Dioxide (20-32) mmol/L BUN (5-24) mg/dL Creatinine (0.5-1.5) mg/dL Estimated Creat Clear Estimated GFR ml/min Glucose (60-115) mg/dL Lactate (0.5-1.9) mmol/L Calcium (8.4-10.6) mg/dL Total Bilirubin (0.1-1.5) mg/dL AST (12-35) U/L ALT (4-35) U/L Alkaline Phosphatase (40-150) U/L Total Protein (6.0-8.3) g/dL Albumin (3.3-5.0) g/dL Amylase (18-89) U/L Lipase (23-300) U/L Urine Color Priscilla A (Yellow) Urine Appearance Clear (Clear) Urine pH 6.0 (5.0-8.5) Ur Specific [place] 1.020 (1.000-1.030) Urine Protein 1+ A (Negative) Urine Glucose (UA) Negative (Negative) Urine Ketones Trace A (Negative) Urine Blood 1+ A (Negative) Urine Nitrite Negative (Negative) Urine Bilirubin 3+ A (Negative) Urine Urobilinogen 0.2 (0.2-1.0) Ur Leukocyte Esterase Negative (Negative) Urine RBC 0-2 (0-2) Urine WBC 0-2 (0-5) Ur Squamous Epith Cells Moderate A (None-Few) Urine Bacteria None (None) Hyaline Casts Few (None-Few) Ethyl Alcohol (0.01-0.03) % SARS-CoV-2 (PCR) Negative SARS-CoV-2 (Negative) Influenza Type A (PCR) Negative PCR FLU A (Negative) Influenza Type B (PCR) Negative PCR FLU B (Negative) Imaging Data Chest x-ray: Attestation: I have reviewed the pertinent imaging results. Radiologist's impression: 1. Consolidation in the right lung base with a moderate right pleural effusion is noted. CT scan - abdomen: Attestation: I have reviewed the pertinent imaging results. Radiologist's impression: No focal hepatic pathology. No evidence of cholelithiasis. Nondilated common bile duct measuring 6 mm in diameter. No pericholecystic fluid collections. Negative sonographic Lovell`s sign. No pancreatic pathology. The abdominal aorta is measuring 18 mm in diameter. The right kidney is measuring 9.8 x 4.3 x 4.7 cm without any obstructive uropathy or perinephric pathology. IMPRESSION: Negative ultrasound examination of the right upper quadrant of the abdomen. Discharge Plan Discharge Clinical Impression: Abdominal ascites, Hepatic cirrhosis, Abdominal pain, Anemia Patient Disposition: Home, Self-Care Condition: Improved Additional Instructions: 1. Increase her diuretics to previous levels. You can start taking spironolactone 100 mg a day and Lasix 40 mg a day. 2. Flexeril 5 mg tablets can be use up to every 8 hours as needed. This will be via [facility]. The tablets come in 10 mg and therefore you will need to cut them in half to only take 5 mg at a time. Please do not take any more than the recommended amount. 3. Return or seek medical attention for onset of new symptoms such as increasing pain, fever, worsening symptoms. Prescriptions: No Action levonorgestrel 20 mcg/24 hours (7 yrs) 52 mg intrauterine device 1 device intrauterine ONCE folic acid 1 mg tablet 1 mg PO QDAY Label Comments: TAKE 1 TABLET BY MOUTH DAILY ergocalciferol (vitamin D2) 1,250 mcg (50,000 unit) capsule 50,000 unit PO QWEEK Label Comments: TAKE 1 CAPSULE BY MOUTH ONCE A WEEK magnesium oxide 400 mg magnesium capsule 400 mg PO BID promethazine 25 mg tablet 25 mg PO Q6H PRN ropinirole 2 mg tablet 2 mg PO QHS gabapentin 300 mg capsule 600 mg PO QHS diazepam 5 mg tablet 5 mg PO HS furosemide 20 mg tablet 40 mg PO QAM ondansetron 8 mg tablet,disintegrating 8 mg PO TID PRN thiamine HCl (vitamin B1) 100 mg tablet 100 mg PO QDAY Label Comments: TAKE 1 TABLET BY MOUTH DAILY pantoprazole 40 mg tablet,delayed release (DR/EC) 40 mg PO QDAY Qty: 30 5RF Label Comments: TAKE 1 TABLET BY MOUTH DAILY Xifaxan 550 mg tablet 550 mg PO BID Qty: 60 5RF Label Comments: TAKE 1 TABLET BY MOUTH TWICE DAILY vitamin A 10,000 unit capsule 10,000 unit PO .COMPLEX Qty: 40 3RF Rx Instructions: 10,000 units PO 3 times a week; magnesium oxide 400 mg magnesium capsule 400 mg PO BID Qty: 180 3RF zinc sulfate 50 mg zinc (220 mg) capsule 50 mg PO QDAY Qty: 90 3RF cyclobenzaprine 5 mg tablet 5 mg PO QDAY PRN (Reason: muscle spasm) Qty: 15 0RF lactulose 10 gram/15 mL solution 20 g PO TID Qty: 946 0RF spironolactone 50 mg tablet 50 mg PO QDAY Qty: 30 0RF lidocaine 5 % adhesive patch,medicated 1 patch topical QDAY Qty: 30 0RF Rx Instructions: leave on most painful area for up to 12 hrs diclofenac sodium [Voltaren Arthritis Pain] 1 % gel 2 g topical QID Qty: 100 0RF Rx Instructions: apply to single elbow, wrist or hand; for hand includes palm/fingers/back of hand cholecalciferol (vitamin D3) 10 mcg (400 unit) capsule 10 mcg PO QDAY Qty: 30 0RF acetaminophen [Tylenol Extra Strength] 500 mg tablet 500 mg PO Q6H PRN (Reason: pain) Qty: 60 0RF Follow Up/Referrals: Ervin Schroeder MD [Staff Physician] - Stand Alone Forms: [facility] Info Instructions
--- NOTE | 2022-01-31 04:05 | CRLHL7_ITS ---
For Patients: As a result of the Century Cures Act, medical imaging exams and procedure reports are released immediately into your electronic medical record. You may view this report before your referring provider. If you have questions, please contact your health care provider. INDICATION: Chest and abdominal pain TECHNIQUE: Chest radiograph 1 view COMPARISON: 07/15/2021, 03/12/2021 FINDINGS: The sensitivity and specificity of the exam are severely limited by the patient`s body habitus. Mediastinum: The mediastinum is normal in appearance. The heart silhouette is normal in size and morphology. Lung: Consolidation in the right lung base with a moderate right pleural effusion is noted. Small lung volumes are present with mild subsegmental atelectasis seen in the left lung base. No pneumothorax is identified. Bone and Soft tissue: Unremarkable for age. IMPRESSION: 1. Consolidation in the right lung base with a moderate right pleural effusion is noted. Dictated by Fred Carvajal MD @ 01/31/2022 4:37:02 AM Dictated by: Fred Carvajal MD @ 01/31/2022 04:37:06 (Electronically Signed)
[2022-01-31] MEDS: HYDROmorphone 0.5 mg/0.5 ml inj 0.25 MG IVP (04:20)
[2022-01-31] MEDS: ONDANSETRON 2 MG/ML inj 4 MG IVP (04:20)
--- OUTSIDE RECORDS SUMMARY | 2022-01-31 04:20 | XMS_ITS | Encounter Summary ---
:1990 Author Organization [facility] Address [address] [place] [address] Care Team Providers Name Role Phone Ana Red P.A.-C. Primary Care Provider [phone] Encounter Details Date Type Department Care Team Description 01/30/2022 Clinical Communication RST Sara Gomez [address] [facility] Lilian Mendez [place], [place] [address] [place] [phone] [place] [address] Social History Tobacco Use Types Packs/Day Years [...] do you attend advent or Never 2021 moravian services? 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 - 01/30/2022 9:10 PM CDT Patient called [facility] Medicine 3 team overnight for severe back pain and abdominal pain. She was discharged on 01/29. 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 Her local pharmacy is now closed, and she does not have any Flexeril for her pain. Prescribed the patient 5 Flexeril 5 mg p.r.n. to get her through this weekend. Advised that the patient get her Flexeril fully filled with her PCP on Wednesday. documented in this encounter Plan of Treatment Upcoming Encounters Date Type Specialty Care Team Description Office Visit Community Internal Neda, Olinda Medicine Vernell Perez [address] [place] [phone] Appointment Radiology Matthew Jerome 2 Y, M.B.B.SSuma, MJules [address] [place] [phone] Hospital Gastroenterology and Queenie Matthew 2 Encounter Hepatology Joshua RodrigeuzBSumaBGraeme, Lilian [address] [place] [phone] Surgery Gastroenterology and Queenie Matthew ESOPHAG OGASTRODUODENOSCOPY 2 Hepatology Y M.B.B.SSuma, MJules [address] [place] [phone] Telemedicine Transplant 2 Lab Laboratory Medicine Karin, 2 Adeline Gannon M.D., Ph.D. [address] [place] [phone] Lab Laboratory Medicine Olinda Frazier M.D., Ph.D. [address] [place] [phone] Office Visit Transplant Olinda Frazier M.D., Ph.D. [address] [place] [phone] Appointment Radiology Matthew Jerome 2 Y, M.B.B.SSuma, Lilian [address] [place] [phone] Appointment Gastroenterology and Adrianne, 2 Hepatology Yue Burciaga M.D. [address] [place] [address] Office Visit Gastroenterology and Matthew Jerome 2 Hepatology Jennifer M.B.B.SSuma, Lilian 10[address] [place] [phone] Appointment Radiology Matthew Jerome 2 Y M.B.B.SSuma, Lilian [address] [place] [address] Scheduled Procedures Name Priority Associated Diagnoses Date/Time ESOPHAGOGASTRODUODENOSCOPY Cirrhosis Alc oholic (HCC) 02/10/2022 8:45 AM CDT Hypertension Portal (HCC) documented as of this encounter Visit Diagnoses Not on filedocumented in this encounter Additional Health Concerns Assessment Noted Time PHQ-9 Depression Total Score: 10 10/06/2021 5:00 PM CD T documented as of this encounter Care Teams Insurance Risk Surveyor Relationship Specialty Start Date End Date Ana Red P.A.-C. PCP - General Internal Medicine 12/01/[address] [place] [phone] [facility]- [place] lab 08/25/21 Ervin Schroeder MD Referring Provider Family Medicine 03/24/[address] [place] [address] documented as of this encounter
--- OUTSIDE RECORDS SUMMARY | 2022-01-31 04:20 | XMS_ITS | Encounter Summary ---
:1990 Author Organization [facility] Address [address] [place] [address] Care Team Providers Name Role Phone Ana Red P.A.-C. Primary Care Provider Encounter Details Date Type Department Care Team Description 01/30/2022 Clinical Communication Department of Neda [facility] Farida Perez Medicine in [address] [address] [facility] [place] [phone] [address] (Work) [phone] Social History Tobacco Use Types Packs/Day Years [...] or relatives? How often do you attend jainism or Never 2021 restoration services? Do you belong to any clubs or No 07/17/2021 organizations such as jainism groups, unions, fraSnap Trends or athletic groups, or school groups? 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 Telephone Encounter - Paty Rand - 01/30/2022 8:54 AM CDT Thank you for your quick response. Patient is aware of the script being sent and is grateful. - Paty Telephone Encounter - Paty Rand - 01/30/2022 7:05 AM CDT Caller: Catia Carias (patient) Callback Number: Best communication method: Phone call Request/Details: Patient called to get a script written for Flexeril. Patient just left the hospital and believed shehad some from a previous script for it at home so they did not discharge her with any. She does not have any and is in extreme pain. She needs this filled prior to the weekend. I could not find the past script in her chart. Thank you, Paty Rand documented in this encounter Plan of Treatment Upcoming Encounters Date Type Specialty Care Team Description Office Visit Community Internal [facility], 2 Medicine Vernell Perez [address] [place] [phone] Appointment Radiology Queenie Matthew 2 Tyrell Rodriguez M.D. [address] [place] [phone] Hospital Gastroenterology and [facility] Matthew 2 Encounter Hepatology Tyrell Rodriguez M.D. [address] [place] [phone] Surgery Gastroenterology and [facility], Matthew ESOPHAG OGASTRODUODENOSCOPY 2 Hepatology Tyrell Rodriguez M.D. [address] [place] [phone] Telemedicine Transplant 2 Lab Laboratory Medicine Karin, 2 Adeline Gannon M.D., Ph.D. [address] [place] [phone] Lab Laboratory Medicine Olinda Frazier M.D., Ph.D. [address] [place] [phone] Office Visit Transplant Olinda Frazier M.D., Ph.D. [address] [place] [phone] Appointment Radiology Matthew Jerome 2 YTyrell M.D. [address] [place] [phone] Appointment Gastroenterology and Adrianne, 2 Hepatology Yue Burciaga M.D. [address] [place] [phone] Office Visit Gastroenterology and Matthew Jerome 2 Hepatology Joshua RodriguezBSumaBLilian Bedolla [address] [place] [phone] Appointment Radiology Matthew Jerome 2 YJoshuaBSumaBLilian Bedolla [address] [place] [phone] Scheduled Procedures Name Priority Associated Diagnoses Date/Time ESOPHAGOGASTRODUODENOSCOPY Cirrhosis Alc oholic (HCC) 02/10/2022 8:45 AM CDT Hypertension Portal (HCC) documented as of this encounter Visit Diagnoses Not on filedocumented in this encounter Additional Health Concerns Assessment Noted Time PHQ-9 Depression Total Score: 10/06/2021 5:00 PM CD T documented as of this encounter Care Teams Nurse Supervisor Relationship Specialty Start Date End Date Ana Red P.A.-C. PCP - General Internal Medicine 12/01/[address] [place] [phone] [facility]- [place] lab 08/25/21 Ervin Schroeder MD Referring Provider Family Medicine 03/24/[address] [place] [phone] documented as of this encounter
--- OUTSIDE RECORDS SUMMARY | 2022-01-31 04:20 | XMS_ITS | Encounter Summary ---
:1990 Author Organization [facility] Address [address] [place] [address] Care Team Providers Name Role Phone Ana Red P.A.-C. Primary Care Provider [phone] Encounter Details Date Type Department Care Team Description 01/30/2022 Orders Only [facility] Harinder Mccormick M.D. Internal Medicine, [address] in [place] [facility] [phone] [place] [address] [place] [address] [phone] Social History Tobacco Use Types Packs/Day Years [...] do you attend moravian or Never 2021 jehovah's witness services? Do you belong to any clubs or No 07/17/2021 organizations such as moravian groups, unions, fraEnhanceWorks or athletic groups, or school groups? 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 [address] [place] [address] Surgery Gastroenterology and Matthew Jerome ESOPHAG OGASTRODUODENOSCOPY 2 Hepatology Tryell Rodriguez M.D. [address] [place] [phone] Telemedicine Transplant 2 Lab Laboratory Medicine Karin, 2 Adeline Gannon M.D., Ph.D. [address] [place] [phone] Lab Laboratory Medicine Karin, 2 Adeline Gannon M.D., Ph.D. [address] [place] [phone] Office Visit Transplant Karin, 2 Adeline Gannon M.D., Ph.D. [address] [place] [phone] Appointment Radiology Matthew Jerome 2 Tyrell Rodriguez M.D. [facility] [place] [address] Appointment Gastroenterology and Adrianne, 2 Hepatology Yue Burciaga M.D. [address] [place] [phone] Office Visit Gastroenterology and Luischantell Matthew 2 Hepatology Vik RodriguezBLilian Bedolla [address] [place] [phone] Appointment Radiology Matthew Jerome 2 YTyrell M.D. [address] [place] [phone] Scheduled Procedures Name Priority Associated Diagnoses Date/Time ESOPHAGOGASTRODUODENOSCOPY Cirrhosis Alc oholic (HCC) 02/10/2022 8:45 AM CDT Hypertension Portal (HCC) documented as of this encounter Visit Diagnoses Not on filedocumented in this encounter Additional Health Concerns Assessment Noted Time PHQ-9 Depression Total Score: 10/06/2021 5:00 PM CD T documented as of this encounter Care Teams Sample Grinder Relationship Specialty Start Date End Date Ana Red P.A.-C. PCP - General Internal Medicine 12/01/[address] [place] [phone] [facility]- [place] lab 08/25/21 Ervin Schroeder MD Referring Provider Family Medicine 03/24/[address] [place] [address] documented as of this encounter
--- OUTSIDE RECORDS SUMMARY | 2022-01-31 04:20 | XMS_ITS | Encounter Summary ---
:1990 Author Organization [facility] Address [address] [place] [address] Care Team Providers Name Role Phone Ana Red PSumaASuma-C. Primary Care Provider Reason for Visit Reason Comments Med Refill Encounter Details Date Type Department Care Team Description 01/29/2022 Refill Department of [facility] Ana Red , Esteban Refill Internal Medicine in [place], [place] 300 [facility] [address] [facility] [place] [address] [place] [phone] Social History Tobacco Use Types Packs/Day Years [...] do you attend caodaism or Never 2021 gnosticism services? Do you belong to any clubs or No 07/17/2021 organizations such as caodaism groups, unions, fraDeetectee Microsystems or athletic groups, or school groups? How [...] or the highest technical, or vocational p [facility] degree you have received? 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 [address] [place] [address] Hospital Gastroenterology and Mousa, Matthew 2 Encounter Hepatology Tyrell Rodriguez M.D. [address] [place] [phone] Surgery Gastroenterology and Mousa, Matthew ESOPHAG OGASTRODUODENOSCOPY 2 Hepatology Tyrell Rodriguez M.D. [address] [place] [phone] Telemedicine Transplant 2 Lab Laboratory Medicine Karin, 2 Adeline Gannon M.D., Ph.D. [address] [place] [phone] Lab Laboratory Medicine Karin, 2 Adeline Gannon M.D., Ph.D. [address] [place] [address] [phone] Office Visit Transplant Karin, 2 Adeline Gannon M.D., Ph.D. [address] [place] [address] [phone] Appointment Radiology Queenie Matthew 2 Vik RodriguezBLilian Bedolla [address] [place] [phone] Appointment Gastroenterology and Adrianne, 2 Hepatology Yue Burciaga M.D. [address] [place] [phone] Office Visit Gastroenterology and [place], Matthew 2 Hepatology Tyrell Rodriguez M.D. [address] [place] [phone] Appointment Radiology Matthew Jerome 2 YTyrell, Lilian [facility] [place] [address] Scheduled Procedures Name Priority Associated Diagnoses Date/Time ESOPHAGOGASTRODUODENOSCOPY Cirrhosis Alc oholic (HCC) 02/10/2022 8:45 AM CDT Hypertension Portal (HCC) documented as of this encounter Visit Diagnoses Not on filedocumented in this encounter Additional Health Concerns Assessment Noted Time PHQ-9 Depression Total Score: 10 10/06/2021 5:00 PM CD T documented as of this encounter Care Teams Csr Relationship Specialty Start Date End Date Ana Red P.A.-C. PCP - General Internal Medicine 12/01/[address] [place] [phone] [facility]- [place] lab 08/25/21 Ervin Schroeder MD Referring Provider Family Medicine 03/24/[address] [place] [address] documented as of this encounter
--- OUTSIDE RECORDS SUMMARY | 2022-01-31 04:20 | XMS_ITS | Encounter Summary ---
:1990 Author Organization [facility] Address [address] [place] [address] Care Team Providers Name Role Phone Ana Red P.A.-C. Primary Care Provider [phone] Reason for Visit Reason Comments Phone Contact Encounter Details Date Type Department Care Team Description 01/29/2022 Clinical Communication Adry Orourke Phone Contact Center for [address] [place] [address] Transplantation [place], [place] [phone] [place], [place] [phone] [place] [address] (Work) [place] [phone] Social History Tobacco Use Types Packs/Day [...] do you attend jainism or Never 2021 amish services? 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 Call log added. Telephone Encounter - Jo Ann Blakely - 01/29/2022 11:57 AM CDT Alisha from [facility] reaching out to the transplant team to assist pt in scheduling appts. Pt is also wanting to transfer her care from [place] to [place]. Please reach out to the pt at [phone]. Thanks, documented in this encounter Plan of Treatment Upcoming Encounters Date Type Specialty Care Team Description Office Visit Community Internal Neda, Olinda Perez P.A.-C. [address] [place] [address] [place] [address] Appointment Radiology [facility] 2 Y, M.B.B.S., M.Jeri [address] [place] [address] Hospital Gastroenterology and [facility] 2 Encounter Hepatology Jennifer M.B.B.S., MJules [address] [place] [address] Surgery Gastroenterology and [facility] ESOPHAG OGASTRODUODENOSCOPY 2 Hepatology Y M.B.B.S., M.D. 1025 [place] [address] Telemedicine Transplant 2 Lab Laboratory Medicine Karin, 2 Adeline Gannon M.D., Ph.D. [address] [place] [phone] Lab Laboratory Medicine Karin 2 Adeline Gannon M.D., Ph.D. [address] [place] [phone] Office Visit Transplant Olinda Frazier M.D., Ph.D. [address] [place] [phone] Appointment Radiology Matthew Jerome 2 Y M.B.B.Lilian [place] 1025 [place] [phone] Appointment Gastroenterology and Adrianne, 2 Hepatology Yue Burciaga M.D. [address] [place] [address] Office Visit Gastroenterology and Matthew Jerome 2 Hepatology YJoshuaB.B.Lilian [place] 1025 [place] [address] Appointment Radiology Matthew Jerome 2 YJoshuaB.B.Lilian [place] 1025 [place] [address] Scheduled Procedures Name Priority Associated Diagnoses Date/Time ESOPHAGOGASTRODUODENOSCOPY Cirrhosis Alc oholic (HCC) 02/10/2022 8:45 AM CDT Hypertension Portal (HCC) documented as of this encounter Visit Diagnoses Not on filedocumented in this encounter Additional Health Concerns Assessment Noted Time PHQ-9 Depression Total Score: 10 10/06/2021 5:00 PM CD T documented as of this encounter Care Teams Lye Boiler Relationship Specialty Start Date End Date Ana Red P.A.-C. PCP - General Internal Medicine 12/01/[address] [place] [phone] [facility]- [place] lab 08/25/21 Ervin Schroeder MD Referring Provider Family Medicine 03/24/[address] [place] [address] documented as of this encounter
--- OUTSIDE RECORDS SUMMARY | 2022-01-31 04:20 | XMS_ITS | Encounter Summary ---
:1990 Author Organization [facility] Address [address] [place] [address] Care Team Providers Name Role Phone Ana Red P.A.-C. Primary Care Provider [phone] Encounter Details Date Type Department Care Team Description 01/29/2022 Orders Only Pharmacy Prior Auth Genaro Biggs [phone] Social History Tobacco Use Types Packs/Day Years [...] do you attend holiness or Never 2021 worship services? Do you belong to any clubs or No 07/17/2021 organizations such as holiness groups, unions, fraInReal Technologies or athletic groups, or school groups? 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 encounter Plan of Treatment Upcoming Encounters Date Type Specialty Care Team Description Office Visit Community Internal [facility], 2 Medicine Vernell Perez 300 [place] [phone] Appointment Radiology Matthew Jerome 2 Vik RodriguezBGraeme, MJules [address] [place] [address] Hospital Gastroenterology and Matthew Jerome 2 Encounter Hepatology Tyrell Rodriguez, MJules [address] [place] [phone] Surgery Gastroenterology and Queenie, Matthew ESOPHAG OGASTRODUODENOSCOPY 2 Hepatology Joshua RodriguezBSumaBLilian Bedolla [address] [place] [address] Telemedicine Transplant 2 Lab Laboratory Medicine Karin, 2 Adeline Gannon M.D., Ph.D. [address] [place] [phone] Lab Laboratory Medicine Karin, 2 Adeline Gannon M.D., Ph.D. [address] [place] [phone] Office Visit Transplant Karin, 2 Adeline Gannon M.D., Ph.D. [address] [place] [phone] Appointment Radiology Matthew Jerome 2 YElizabeth.B.B.SSuma, Lilian [address] [place] [address] Appointment Gastroenterology and Adrianne, 2 Hepatology uYe Burciaga M.D. [address] [place] [address] [phone] Office Visit Gastroenterology and Queenie Matthew 2 Hepatology Elizabeth Rodriguez.B.B.SLilian Moise [address] [place] [address] Appointment Radiology Matthew Jerome 2 Y M.B.B.SLilian Moise [address] [place] [phone] Scheduled Procedures Name Priority Associated Diagnoses Date/Time ESOPHAGOGASTRODUODENOSCOPY Cirrhosis Alc oholic (HCC) 02/10/2022 8:45 AM CDT Hypertension Portal (HCC) documented as of this encounter Visit Diagnoses Not on filedocumented in this encounter Additional Health Concerns Assessment Noted Time PHQ-9 Depression Total Score: 10 10/06/2021 5:00 PM CD T documented as of this encounter Care Teams Customer Facilities Supervisor Relationship Specialty Start Date End Date Ana Red P.A.-C. PCP - General Internal Medicine 12/01/[address] [place] [phone] [facility]- [place] lab 08/25/21 Ervin Schroeder MD Referring Provider Family Medicine 03/24/[address] [place] [address] documented as of this encounter
--- OUTSIDE RECORDS SUMMARY | 2022-01-31 04:20 | XMS_ITS | Encounter Summary ---
:1990 Author Organization [facility] Address [address] [place] [address] Care Team Providers Name Role Phone Ana Red P.A.-C. Primary Care Provider [phone] Reason for Visit Reason Comments Post Hospital Follow-up Encounter Details Date Type Department Care Team Description 01/30/2022 Clinical Communication Department of [facility] Family Medicine, J, R.N. Follow-up [facility], in [facility] ([address] [phone] Social History Tobacco Use Types Packs/Day [...] or relatives? How often do you attend sabianist or Never 2021 quaker services? 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 - 01/30/2022 2:25 PM CDT SUBJECTIVE REASON FOR CALL Post-Hospital follow-up phone call with patient. Admission Date: 01/20/22 Discharge Date: 01/29/22 Discharge Diagnosis: Failure Renal Acute (Acute Kidney Injury) General Health Notes today that she is feeling worse since discharged from the hospital. Concerns/questions: Patient has no questions or concerns. Symptom Review Pain: Reports chronic pain in back due to chronic pain syndrome. The patient has been experiencing the pain with an intensity of 8/10. Contributing factors include recent hospitalization, patient's insurance has not filled Flexeril. The patient is unable to try OTC medications due to cirrhosis. Worsens with movement - increased difficulty to do ADLs and ambulate. Pain throats due to recent EGD during hospitalization. Patient takes lactulose - has had 4 BMs today. Goal is for 2-3 BMs. Activities of Daily Living Patient needs partial assistance with upper body dressing , lower body dressing, toilet hygeine, andbathing/showering . Related to pain. Has the patient had a fall since discharge: no. Has ambulation changed since hospitalization: no. Difficulty ambulating: yes, due to pain . The patient lives with significant other. Patient identified if needing assistance, she could depend on significant other. Wounds/Incisions/Lines, Drains and Airways Incision: L paracentesis site. Signs or symptoms of infection: no. Incision care instructions reviewed: yes. Patient does have swelling and bruised, had imaging done prior to discharge and no signs of abnormalities. Medication Status Current medication list was reviewed and updated as needed. Reports medication is managed by the Home Health nurse. Medications concerns: none. Medication compliance for current medications: yes. High Risk Medications None Home Services Utilized The patient is receiving home health services, including a visiting nurse. Equipment/Supplies for Home Use None ordered Assessment/Plan Follow-up Appointment PCP Follow-up appointment scheduled: yes; scheduled on 02/05/2022. The patient plans to go to the appointment and has no concerns about getting there. Specialty Follow-up is n/a. Recommendations Referral actions: none needed at this time. Additional recommendations: home care instructions reinforced or provided, provider notified, and appointment ordered/scheduled as per TCM guidelines. Disposition/Recommendation: self-care is appropriate at this time, patient encouraged to call back with questions and recommended continue engagement in self-management activities. Education: patient/caller able to teach back. Caller agreeable to plan of care: yes. documented in this encounter Plan of Treatment Upcoming Encounters Date Type Specialty Care Team Description Office Visit [facility], Medicine Vernell Perez [address] [place] [phone] Appointment Radiology Mousa, Matthew 2 Y, JoshuaB.BGraeme, Lilian [address] [place] [phone] Hospital Gastroenterology and Mousa, Matthew 2 Encounter Hepatology Tyrell Rodriguez M.D. [address] [place] [phone] Surgery Gastroenterology and Mousa, Matthew ESOPHAG OGASTRODUODENOSCOPY 2 Hepatology Tyrell Rodriguez, Lilian [address] [place] [phone] Telemedicine Transplant 2 Lab Laboratory Medicine Karin, 2 Adeline Gannon M.D., Ph.D. [address] [place] [phone] Lab Laboratory Medicine Karin, 2 Adeline Gannon M.D., Ph.D. [address] [place] [phone] Office Visit Transplant Karin, Olinda Gannon M.D., Ph.D. [address] [place] [phone] Appointment Radiology LuisNew abdular 2 Y, M.B.B.Kath, Lilian [address] [place] [phone] Appointment Gastroenterology and Adrianne, 2 Hepatology Yue Burciaga M.D. [address] [place] [phone] Office Visit Gastroenterology and Matthew Jerome 2 Hepatology YTyrell, Lilian [address] [place] [phone] Appointment Radiology LuisMatthew abdul 2 YTyrell, Lilian [address] [place] [phone] Scheduled Procedures Name Priority Associated Diagnoses Date/Time ESOPHAGOGASTRODUODENOSCOPY Cirrhosis Alc oholic (HCC) 02/10/2022 8:45 AM CDT Hypertension Portal (HCC) documented as of this encounter Visit Diagnoses Not on filedocumented in this encounter Additional Health Concerns Assessment Noted Time PHQ-9 Depression Total Score: 10 10/06/2021 5:00 PM CD T documented as of this encounter Care Teams Aerospace Engineer Officer Armament Relationship Specialty Start Date End Date Ana Red P.A.-C. PCP - General Internal Medicine 12/01/[address] [place] [phone] [facility] [place] [facility] 08/25/21 Ervin Schroeder MD Referring Provider Family Medicine 03/24/[address] [place] [phone] documented as of this encounter
--- OUTSIDE RECORDS SUMMARY | 2022-01-31 04:20 | XMS_ITS | Clinical Summary ---
:1990 Author Organization [facility] Address [address] [place] [address] Care Team Providers Name Role Phone Ana Red P.A.-C. Primary Care Provider [phone] Source Comments Patient records contain information from all sites at [facility]. For routine questions regarding patient records, call [phone] during business hours, M-F 8:00 AM - 5:00 PM Central Time. Record requests for emergency care only can be directed to [phone] at any time.[facility] Allergies Active Allergy Reactions Severity Noted Date Comments Azithromycin GI intolerance, Nausea Low 05/07/2016 And Vomiting Other reaction( s): Nausea/Vomiting Other reaction( s): Other (see comments) Unknown Other reaction( s): Unknown Other reaction( s): GI intolerance Gabapentin Other (see comments) High 11/26/2021 Encepha lopathy Medications Medication Sig Dispensed Refills Start Date End Date Status pantoprazole Take 1 tablet (40 30 tablet 1 03/24/2021 Active (PROTONIX) 40 mg EC mg total) by mouth tablet every morning before breakfast. levonorgestreL 1 each by 0 Activ e (MIRENA) 20 mcg/24 intrauterine route hours (7 yrs) 52 mg continuously. IUD Placed in 2014 thiamine (VITAMIN B1) Take 100 mg by 0 Active 100 mg tablet mouth daily. diclofenac sodium Apply 2 g 20 g 0 11/26/2021 A ctive (VOLTAREN) 1 % gel topically 4 (four) times a day. Apply to painful area on skin. magnesium oxide Take 1 tablet (400 60 tablet 1 12/02/2021 Active (MAG-OX) 400 mg (241.3 mg total) by mouth mg magnesium) tablet 2 (two) times a day before breakfast and dinner. rifAXIMin (XIFAXAN) Take 1 tablet (550 180 tablet 3 12/10/2021 Active 550 mg mg total) by mouth 3 tabletIndications: 2 (two) times a Cirrhosis Alcoholic day. (HCC), Hypertension Portal (HCC), Thrombocytopenia (HCC), Abnormal Liver Function Test, Hepatic Encephalopathy Without Coma (HCC) zinc sulfate (ZINCATE) Take 220 mg by 0 12/05/2021 Active 220 (50 mg zinc) mouth daily with capsule breakfast. lidocaine (LIDODERM) 5 Place 1 patch on 15 patch 3 01/14/2022 Active % the skin daily. Apply to painful area on back. traZODone (DESYREL) 50 Take 1 tablet (50 30 tablet 1 2 Active mg tablet mg total) by mouth at bedtime. vitamin A 3,000 mcg Take 1 capsule 50 capsule 0 01/14/2022 Active (10,000 Unit) (3,000 mcg total) 3 capsuleIndications: by mouth 3 (three) Deficiency Vitamin A, times a week for Cirrhosis Alcoholic 50 doses. Wednesday, (HCC) Wednesday, Wednesday cholecalciferol 10 mcg Take 1 tablet (400 60 tablet 3 01/16/20 22 Active (400 Unit) tablet Units total) by mouth daily. Additional Information Patient not taking. Reported on 01/30/2022 ciprofloxacin (CIPRO) Take 1 tablet 60 tablet 2 01/29/2022 Active 500 mg tablet (500 mg total) by mouth every morning before breakfast. Take this medication 2 hours before or after you take your vitamins, in particular the magnesium and the zinc. lactulose (CHRONULAC) Take 15 mL (10 g 5400 mL 3 01/29/202201/29 Active 20 gram/30 mL total) by mouth solution (four) times a day. furosemide (LASIX) 20 Take 1 tablet (20 90 tablet 3 01/29/202201/29 Active mg tabletIndications: mg total) by Thrombocytopenia mouth daily. (HCC), Ascites Return to full Chronic, Cirrhosis 40mg dose on Alcoholic (HCC), Friday 02/02. Hypertension Portal (HCC), Abnormal Liver Function Test spironolactone Take 1 tablet (50 60 tablet 2 01/29/2022 Active (ALDACTONE) 50 mg mg total) by tablet mouth daily. Return to full 100mg dose on Friday 02/02. folic acid 1 mg TAKE 1 TABLET BY 90 tablet 3 01/30/2022 Active tablet MOUTH DAILY cyclobenzaprine Take 1 tablet (5 5 tablet 0 01/30/2022 Active (FLEXERIL) 5 mg mg total) by tablet mouth daily as needed for muscle spasms. ondansetron ODT Dissolve 1 tablet 0 04/23/202101/14 Discontinued (ZOFRAN-ODT) 8 mg in the mouth (Stop Taking at disintegrating tablet (three) times a Discharge) day as needed for nausea or vomiting. ergocalciferol Take 50,000 Units 0 04/01/202101/14 Discontinued (DRISDOL) 50,000 Unit by mouth once a /2 022 (Stop Taking at capsule week. Mondays Discha rge) folic acid 1 mg Take 1 mg by 0 01/30 D iscontinued tablet mouth daily. vitamin A 3,000 mcg Take 1 capsule 50 capsule 0 10/08/2021 Discontinued (10,000 Unit) (3,000 mcg total) (Reorder) capsuleIndications: by mouth 3 Cirrhosis Alcoholic (three) times a (HCC), Deficiency week for 50 Vitamin A doses. traZODone (DESYREL) Take 1 tablet (50 10 tablet 0 12/04/2021 0 01/07 Discontinued 50 mg tablet mg total) by mouth at bedtime as needed for sleep for up to 10 doses. spironolactone Take 2 tablets 180 tablet 3 12/10/202101/14 Discontinued (ALDACTONE) 50 mg (100 mg total) by /202 2 (Stop Taking at tabletIndications: mouth daily. Discharge) Cirrhosis Alcoholic (HCC), Hypertension Portal (HCC), Thrombocytopenia (HCC), Abnormal Liver Function Test, Ascites Chronic furosemide (LASIX) 20 Take 2 tablets 180 tablet 3 12/10/2021 0 01/28 Discontinued mg tabletIndications: (40 mg total) by 2021 (Reorder) Cirrhosis Alcoholic mouth daily. (HCC), Hypertension Portal (HCC), Thrombocytopenia (HCC), Abnormal Liver Function Test, Ascites Chronic lactulose (CHRONULAC) Take 15 mL (10 g 1350 mL 11 12/10/202101/27 Discontinued 10 gram/15 mL total) by mouth (Stop Taking at solutionIndications: (three) times a Discharge) Cirrhosis Alcoholic day. Titrate to 3 (HCC), Hypertension soft bowel Portal (HCC), movements daily Thrombocytopenia (HCC), Abnormal Liver Function Test, Hepatic Encephalopathy Without Coma (HCC) sulfamethoxazole-trim Take 1 tablet by 90 tablet 3 12/10/202101/14 Discontinued ethoprim (BACTRIM DS) mouth daily. Take (Stop Taking at 800-160 mg per 1 tablet daily Discharge) tabletIndications: for Cirrhosis Alcoholic (HCC), Hypertension Portal (HCC), Thrombocytopenia (HCC), Abnormal Liver Function Test, Ascites Chronic LORazepam (ATIVAN) 1 Take 1 tablet (1 1 tablet 0 12/18/2021 0 01/14 Discontinued mg tabletIndications: mg total) (Stop Taking at Mood Disorder (HCC), mouth once for 1 Discharge) Anxiety Disorder dose. Take 30 Unspecified minutes before your scheduled paracentesis ergocalciferol, 50,000 Units. 0 12/12/202101/10 Discontinued vitamin D2, 10 mcg /2021 (400 unit) tablet traZODone (DESYREL) Take 1 tablet 30 tablet 0 01/07/202201/14 Discontinued 100 mg tablet (100 mg total) (Stop Taking at mouth at bedtime Dis charge) as needed for sleep. cyclobenzaprine Take 1 tablet (5 15 tablet 0 01/07/202201/20 Discontinued (FLEXERIL) 5 mg mg total) ( Reorder) tablet mouth daily as needed for muscle spasms. zinc gluconate 50 mg Take 50 mg by 0 12/05/202101/01 1 Discontinued tablet mouth daily with breakfast. acetaminophen Take 1 tablet 60 tablet 3 01/14/202201/27 D iscontinued (TYLENOL) 500 mg (500 mg total) by (Stop Taking at tablet mouth every 6 Discha rge) (six) hours as needed for mild pain or score 1-3 of 10 or moderate pain or score 4-6 of 10. ciprofloxacin (CIPRO) Take 1 tablet 60 tablet 2 01/14/2022 Discontinued 500 mg tablet (500 mg total) by (Reorder) mouth every morning before breakfast. prochlorperazine Take 1 tablet (10 20 tablet 0 01/14/202201/02 0 Discontinued (COMPAZINE) 10 mg mg total) by (Reorder) tablet mouth 3 (three) times a day as needed for nausea. spironolactone Take 1 tablet (50 60 tablet 2 01/15/202201/20 Discontinued (ALDACTONE) 50 mg mg total) by (Reorder) tablet mouth daily. lidocaine (LIDODERM) Place 1 patch on 90 patch 3 01/19/2022 0 01/19 Discontinued 5 % the skin daily. (Err or) Apply to painful area 12 hours per day, remove for 12 hours. lidocaine (LIDODERM) Place 1 patch on 10 patch 0 01/19/2022 0 01/27 Discontinued 5 % the skin daily. (Sto p Taking at Apply to painful Dis charge) area 12 hours per day, remove for 12 hours. cyclobenzaprine Take 1 tablet (5 15 tablet 0 01/20/202201/30 Discontinued (FLEXERIL) 5 mg mg total) by ( Reorder) tablet mouth daily as needed for muscle spasms. spironolactone Take 2 tablets 60 tablet 2 01/20/202201/28 Discontinued (ALDACTONE) 50 mg (100 mg total) by (Reorder) tablet mouth daily. prochlorperazine Take 1 tablet (10 20 tablet 0 01/20/202201/02 9 Discontinued (COMPAZINE) 10 mg mg total) by (Stop Taking at tablet mouth 3 (three) Disc harge) times a day as needed for nausea. lactulose (CHRONULAC) Take 30 mL (20 g 63016 mL 3 01/27/202201/29 Discontinued 20 gram/30 mL total) by mouth (Reorder) solution (four) times a day. spironolactone Take 1 tablet (50 60 tablet 2 01/28/202201/29 Discontinued (ALDACTONE) 50 mg mg total) by (Reorder) tablet mouth daily. furosemide (LASIX) 20 Take 1 tablet (20 90 tablet 3 01/28/202201/29 Discontinued mg tabletIndications: mg total) by (Reorder) Thrombocytopenia mouth daily. (HCC), Ascites Chronic, Cirrhosis Alcoholic (HCC), Hypertension Portal (HCC), Abnormal Liver Function Test lactulose (CHRONULAC) Take 30 mL (20 g 8100 mL 3 01/29/202201/29 Discontinued 20 gram/30 mL total) by mouth (Reorder) solution (three) times a day. cyclobenzaprine Take 1 tablet (5 15 tablet 0 01/30/202201/30 Discontinued (FLEXERIL) 5 mg mg total) by ( Reorder) tablet mouth daily as needed for muscle spasms. 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 Opioids were discontinued during hospitalization of October 2021. Nicotine Dependence Cigarettes 10/10/2021 Overview: Quit smoking spring 2021. Chronic Pain Syndrome 10/10/2021 Deficiency Vitamin A 10/08/2021 Hypertension Portal 09/05/2021 Overview: Added automatically from request for dolly edi [id number] Pretransplant Recipient Evaluation Exam 09/05/2021 Overview: Added automatically from request for dolly daley [id number] Deficiency Coagulation Acquired 07/07/2021 Overview: Added automatically from request for dolly daley [id number] Thrombocytopenia 07/01/2021 Patent Foramen Ovale 03/19/2021 Cirrhosis Alcoholic 03/12/2021 Acute Respiratory Failure 03/12/2021 Anemia 03/12/2021 Long QT Syndrome 01/30/2021 Hepatic Failure Unspecified Without Coma 01/24/2021 Ascites 01/23/2021 Pancreatitis Chronic 01/23/2021 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/30 Gastroesophageal Reflux Disease Without Esophagitis Other Specified Behavioral And Emotional Disorders Wit h Onset Usually 06/30/2007 Occurring In Childhood And Adolescence Rhinitis Allergic 04/06/2006 Alcohol Use Unspecified With Unspecified Alcohol Induc ed Disorder Overview: Patient reports being sober for approxim ately two years as of Fall 2021. Resolved Problems Problem Noted Date Resolved Date Delirium 11/26/2021 11/26/2021 Encephalopathy 11/12/2021 11/26/2021 Failure Renal Acute (Acute Kidney Injury) 11/11/2021 11/11/2021 COVID-19 Infection 11/11/2021 01/20/2022 Hepatic Encephalopathy Without Coma 10/10/2021 07/2 10/2021 Mood Disorder 10/10/2021 01/07/2022 Eating Disorder 10/10/2021 01/07/2022 Vomiting 07/26/2021 01/20/2022 Change Mental Status 03/12/2021 11/26/2021 Abnormal Liver Function Test 01/23/2021 01/20/2022 Anxiety Disorder Unspecified 01/19/2012 01/07/2022 Encounters Date Type Specialty Care Team Description 01/30/2022 Clinical Acute Care Ashley Gracia M.D. 01/30/2022 Orders Only Acute Care Sara Gracia M.D. 01/30/2022 Clinical Family Medicine Nighat Dickson [facility] Ramirez J, R.N. Follow-up 01/30/2022 Orders Only Community Internal Harinder Mccormick M.D. 01/30/2022 Clinical Community Internal Nguy[facility]n, Post H[facility] ital Communication Medicine Parris Schaefer, Follow-up R.N. 01/30/2022 Clinical [facility] Carlotta PerezC. 01/29/2022 Refill [facility] Internal [facility], Med Refil l Solitario Perez P.A.-C. 01/29/2022 Orders Only Pharmacy Genaro Handley 01/29/2022 Clinical Transplant Adry Peterson Phone Contact Communication 01/28/2022 Virtual Visit Transplant Matthew Jerome, Canceled (Danie albright: Elizabeth.B.B.S., M.D. Hospitalized / ill) 01/28/2022 Clinical Acute Care Doll, Pre-visit Testi ng Communication Yue Burciaga, Orders M.Jeri 01/27/2022 Orders Only Pharmacy Evi Lanier 01/26/2022 Anesthesia Event Gastroenterology and Gildardo Hickey Hepatology E, PUG MILL OPERATOR HELPER, CAMERA REPAIR TECHNICIAN, DNAP Catia Green, PUG MILL OPERATOR HELPER, CAMERA REPAIR TECHNICIAN, DNAP 01/26/2022 Ancillary Procedure 01/26/2022 Clinical Pharmacy Christopher, Nicole Rx Prior Communication A Authorization (PA DENIED - LIDOCA INE 5% PATCH) 01/26/2022 Orders Only Pharmacy Christopher, Nicole A 01/23/2022 Ancillary Procedure 01/23/2022 Anesthesia Event Gastroenterology and Roseanne, Hepatology Allegra Wilkes, PUG MILL OPERATOR HELPER, CAMERA REPAIR TECHNICIAN 01/22/2022 [facility], Form Revi ew Communication Solitario Perez, ([employer] P.A.-C. med reconciliat ion) 01/20/2022 Hospital Encounter Cody Knight Failure Renal Acute (Acute Kidney Injury) (HCC) (Primary Dx); Ester Burciaga M.D. Cirrhosis Alcoholic (HCC); 01/29/2022 Mhayamaguru, Alcohol Use Uns pecified With Unspecified Alcohol Induced Disorder (HCC); Dallin Burgos M.D. Ascites; Joshua Johnson Hepatic Failure Unspecified Without Coma (HCC); Lilian Santiago Hepatic Encephalopathy Without Coma (HCC ); Ervin Mazariegos Debility [R53. 81 (ICD-10-CM)]; Lilian Johnson Decline Functio nal Status [R53.81 (ICD-10-CM)]; Thrombocytopeni a (HCC); Ascites Chronic ; Cirrhosis Alcoh olic (HCC); Hypertension Po rtal (HCC); Abnormal Liver Function Test; Esophageal Vari sally Without Bleeding (HCC) 01/20/2022 Hospital Encounter Laboratory Medicine Digna Campbell Hepatic Failure Lilian Schaefer Unspecified Wit hout Coma (HCC) 01/20/2022 Office Visit [facility] Internal [facility], Pain Low Back Unspecified (Primary Dx); Medicine Ana, Cirrhosis Alcoh olic (HCC); P.A.-C. Ascites; Long QT Syndrom e; Rhinitis Allerg ic; Alcohol Use Uns pecified With Unspecified Alcohol Induced Disorder (HCC) 01/20/2022 Clinical Gastroenterology and Felicita Spicer Communication Hepatology E, L.P.N. 01/20/2022 Refill [facility], Med Refil l Medicine Ana P.A.-C. 01/20/2022 Orders Only Pharmacy Mestad, Lina C 01/19/2022 Orders Only [facility], [facility] Ana P.A.-C. 01/19/2022 Orders Only Transplant Ailts, Garry Engle., R.N., C.C.T.C. 01/19/2022 Clinical [facility], Communication Medicine Ana, P.A.-C. 01/17/2022 Clinical Gastroenterology and Ervin Mckeon Communication Hepatology Lilian, Ph.D. 01/16/2022 Clinical Transplant Fabrizio, Phone Contact; Communication Lilian Rowland, Appointment (LABs) Ph.D. 01/16/2022 Clinical Gastroenterology and Digna Campbell Communication Hepatdina Schaefer M.D. 01/15/2022 Clinical Transplant Primitivo, Phone Contact Communication Parris 01/15/2022 Clinical [facility] Internal [place], Post Hosp ital Communication Medicine Ciara Johnson RSumaNSuma Follow-up 01/14/2022 Clinical Transplant Karin, Appointment (Oc tober Communication Adeline Gannon, follow up) Lilian, Ph.D. 01/13/2022 Telemedicine Transplant Karin, Moderate Or Sev ere Adeline Gannon, Use Disorder Lilian, Ph.D. (Dependence) Alcohol Cathleen, Remission (HCC) Elena Burgos (Primary Dx) 01/13/2022 Telemedicine Transplant Lambert, Cirrhosis Alcoh olic Joel Gannon, (HCC) (Primary Dx) Shala, M.S.W. 01/13/2022 Clinical Gastroenterology and Digna Campbell Communication Hepatology Lilian Schaefer 01/13/2022 Orders Only Social Work Joel Tan, LJagruti.Davey., M.S.W. 01/13/2022 Clinical Gastroenterology and Digna Campbell Communication Hepatology Lilian Schaefer 01/09/2022 Hospital Encounter Jose, Hepatic E ncephalopathy Without Coma (HCC) (Primary Dx); - Migue Llanes Jr., Deficiency Vi tamin A; 01/14/2022 Lilian Cirrhosis Alcoholic (HCC); Reyes, Pain Low Back U nspecified; Reese Burgos, Decline Functio nal Status [R53.81 (ICD-10-CM)] Sree Up M.D. 01/08/2022 Clinical [facility], Communication Medicine Ana, P.A.-C. 01/07/2022 Office Visit [facility], Hypertens ion Portal (HCC) (Primary Dx); Medicine Ana, Cirrhosis Alcoh olic (HCC); P.A.-C. Ascites; Pancreatitis Ch ronic (HCC); Pain Low Back M echanical 01/07/2022 Patient Self-Triage Symptom Manufacturing Test Engineer, Provider 01/06/2022 Clinical Gastroenterology and Felicita Spicer Communication Hepatology E, L.P.N. 12/27/2021 Patient Self-Triage Symptom Manufacturing Test Engineer, Provider 12/25/2021 Clinical [facility], Communication Medicine Ana, P.A.-C. 12/21/2021 Emergency Emergency Medicine Gonzalez, Ascites ( Primary Dx) Ted Johnson M.D., Ph.D. Clifton Liu M.D. 12/19/2021 Emergency Emergency Medicine Gonzalez, Pain Back (Primary - Ted Johnson M.D., Dx) 12/20/2021 Ph.D. Migue Garcia Jr., M.D. 12/19/2021 Nurse Triage [facility] Internal Dino, Back Pain Medicine Ben Johnson R.N. 12/18/2021 Orders Only Gastroenterology and Mousa, Matthew Y, Mood Disorder (HCC) (Primary Dx); Hepatology Lilian Santillan Anxiety Disor ijeoma Unspecified 12/15/2021 Lab Laboratory Medicine Joseyukiemmava, Alcohol Moderate Or Severe Use Disorder (Dependence) Uncomplicated (HCC); Adeline L, Cannabis Use Un specified Uncomplicated M.Slick., Ph.D. 12/12/2021 Documentation Transplant Joel Tan, MarvaI.C.S.W., M.S.W. 12/11/2021 Clinical Transplant Fabrizio, Phone Contact; Communication Lilian Rowland, Appointment (LABS) Ph.D. 12/11/2021 Clinical Gastroenterology and Felicita Spicer Communication Hepatology Patrica, LSumaP.N. 12/11/2021 Clinical [facility] Internal Carlos, Disabilit y Parking Communication Medicine Ana, Certificate P.A.-C. 12/10/2021 Office Visit Gastroenterology and Mousa, Matthew Y, Cirrh osis Alcoholic (HCC) (Primary Dx); Hepatology Lilian Santillan Hypertension Portal (HCC); Thrombocytopeni a (HCC); Abnormal Liver Function Test; Deficiency Katy min A; Ascites Chronic ; Hepatic Encepha lopathy Without Coma (HCC) 12/04/2021 [facility] ( Primary Dx); Neeru Palma M.D. 12/04/2021 Clinical Gastroenterology and Jethro Communication Hepatology Nabila Schaefer M.D. 12/04/2021 Clinical Gastroenterology and Jethro Communication Hepatology Nabila Schaefer M.D. 12/04/2021 Clinical Gastroenterology and Jethro Communication Hepatology Nabila Schaefer M.D. 12/04/2021 Documentation Gastroenterology and Jethro Hepatdina Schaefer M.D. 12/04/2021 Clinical Gastroenterology and Jethro Communication Hepatdina Schaefer M.D. 12/03/2021 Clinical Community Internal [place], BIANKA / Disha eal Letter Communication Medicine Lilian Gee, M.S. 12/03/2021 Orders Only Ana Red, P.A.-C. 12/02/2021 Hospital Encounter Laboratory Medicine Matthew Jerome Y, Cirrhosis Alcoholic (HCC); Lilian Santillan Hypertension Portal (HCC); Thrombocytopeni a (HCC); Abnormal Liver Function Test; Change Mental S tatus 12/02/2021 Office Visit [facility] Internal [facility] Acute A nd Subacute Hepatic Failure Without Coma (HCC) (Primary Dx); Medicine Sunny hanley D.O. Pancreatitis Chronic (HCC); Intermediate Use O f Opiate Analgesic; Alcohol Use Uns pecified With Unspecified Alcohol Induced Disorder (HCC); Alcoholic Cirrh osis Of Liver Without Ascites (HCC); Ascites Chronic ; Insomnia; High Risk Medic ation 12/02/2021 Clinical [facility] Internal [place], Communication Medicine Lilian Gee, M.S. 12/02/2021 Clinical Pharmacy Ashley Be 12/02/2021 [place] Internal [facility] Communication Medicine Sunny hanley D.O. 12/02/2021 Orders Only Ana Red, P.A.-C. 12/02/2021 Clinical [facility] Internal [place], Post H[facility] ital Communication Medicine Ciara Johnson, R.N. Follow-up 11/27/2021 Orders Only [facility] Internal [facility], Solitario Gee M.D., M.S. 11/26/2021 Clinical [facility] Internal Shannan Rand Communication Medicine Lilian 11/26/2021 Clinical Gastroenterology and Matthew Jerome, Communication Hepatology Lilian Santillan 11/26/2021 Community Orders Schroeder, Steatohepat itis Non Alcoholic (Primary Dx); Ervin Schaefer M.D. Unspecified Ci rrhosis Of Liver (HCC) 11/18/2021 Clinical Alina Carranza R, R.N. 11/14/2021 [facility] Orders Schroeder, Abuse Tobac co Smoking (Primary Dx); Ervin Schaefer M.D. Unspecified Ci rrhosis Of Liver (HCC) 11/12/2021 Hospital Encounter Rosaura Sevilla (Primary Dx); - M, M.D., Change Mental S tatus; 11/26/2021 [facility] Malaise (Concern For Covid-19); Greyson, Cirrhosis Alcoh olic (HCC) Jo Ann Gannon M.D., M.S. Jody Aguilar M.B., B.Chir. 11/12/2021 Clinical Gastroenterology and Matthew Jerome Y, Covid Positive Communication Hepatology Lilian Santillan 11/10/2021 Episode Changes Transplant Ailts, Garry Engle., R.N., C.C.T.C. 11/09/2021 Hospital Encounter Greyson, Hepatic - Jo Ann L, Encephalopathy 11/11/2021 Lilian, M.SSuma Without Coma (HCC) Jody Aguilar (Primary Dx) Vik Lucas, B.Chir. 11/04/2021 Clinical Gastroenterology and Symone Beebe Communication Hepatology L, R.N. 10/31/2021 Clinical Alina Carranza Vitamin K Communication R, R.N. 10/31/2021 Orders Only Gastroenterology and Matthew Jerome Y, Cirrh osis Alcoholic (HCC) (Primary Dx); Hepatology Tyrell, Callie. Defect Coagul ation (HCC) from Last 3 Months Immunizations Name Administration Dates Next Due DTP 03/14/1992, 02/23/1991, 1990, 1990 DTaP (Daptacel) 05/26/1995, 03/14/1992, 02/23/1991, 1990, 1990 DTaP (Infanrix, Tripedia) 05/26/1995 HepB Pediatric/Adolescent 12/28/2000, 12/17/1997, 04/30/1997 Hib (PRP-OMP) (PedvaxHIB) 02/08/1992, 06/01/1991, 03/08/1991 Hib (PRP-T) (ACTHIB, HIBERIX) 02/08/1992, 06/01/1991, 1990 Hib, Unspecified 02/08/1992, 06/01/1991, 03/08/1991 IPV 05/26/1995, 03/14/1992, 1990, 1990 Influenza TIV (IM) 02/26/2009, 03/26/2008, 03/21/2007, 03/21/2003, 03/03/2003 Influenza, Injectable, Quadrivalent 02/26/2009, 03/26/2008, 03/21/2007, 03/21/2003 Influenza, Seasonal, Injectable 02/26/2009, 03/26/2008, 03/03, 03/21/2003 [...] Grandfather Bradley Mayon Asthma Maternal Grandfather Bradley Mayon Hypertension Maternal Grandfather Bradley Mayon Arthritis Maternal Grandmother Desire Cespedes Asthma Maternal Grandmother Desire Cespedes Migraines Maternal Grandmother Desire Coy Anxiety disorder Mother Parris Diabetes Paternal Grandfather Laureano Carias Prostate cancer Paternal Grandfather Laureanorigo Carias ADD Sister Christina Relation Name Status [...] or relatives? How often do you attend presybeterian or Never 2021 rastafari services? Do you belong to any clubs or No 07/17/2021 organizations such as presybeterian groups, unions, [employer]up[employer] or athletic groups, or school groups? 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 Vital Signs Vital Sign Reading Time Taken Comments Blood Pressure 135/73 01/29/2022 11:40 AM CDT Pulse 103 01/29/2022 11:40 AM CDT Temperature 36.8 ??C (98.2 ??F) 01/29/2022 11:40 AM CDT Respiratory Rate 17 01/29/2022 11:40 AM CDT Oxygen Saturation 95% 01/29/2022 11:40 AM CDT Inhaled Oxygen Concentration - - Weight 64 kg (141 lb 1.5 oz) 01/28/2022 2:54 PM CDT Height 157.5 cm (5' 2.01) 01/28/2022 3:01 PM CDT Body Mass Index 25.8 01/28/2022 2:54 PM CDT Plan of Treatment Upcoming Encounters Date Type Specialty Care Team Description Office Visit Community Internal Neda, 2 Medicine Vernell Perez [address] [place] [phone] Appointment Radiology Matthew Jerome 2 Y M.B.BSumaSSuma, Lilian [address] [place] [phone] Hospital Gastroenterology and Matthew Jerome 2 Encounter Hepatology Joshua RodriguezB.BSumaSLilian Moise [address] [place] [phone] Surgery Gastroenterology and Matthew Jerome ESOPHAG OGASTRODUODENOSCOPY 2 Hepatology Y M.B.B.SSuma, Lilian [address] [place] [phone] Telemedicine Transplant 2 Lab Laboratory Medicine Karin, Olinda Gannon M.D., Ph.D. [address] [place] [phone] Lab Laboratory Medicine Olinda Frazier M.D., Ph.D. [address] [place] [phone] Office Visit Transplant Olinda Frazier M.D., Ph.D. [address] [place] [phone] Appointment Radiology Matthew Jerome 2 Y, M.Lilian Hudson [address] [place] [phone] Appointment Gastroenterology and [place], 2 Hepatology Yue Burciaga M.D. [address] [place] [phone] Office Visit Gastroenterology and Matthew Jerome 2 Hepatology Tyrell Rodriguez M.D. [address] [place] [phone] Appointment Radiology Matthew Jerome 2, M.B.B.S., M.D. [address] [place] [phone] Scheduled Procedures Name Priority Associated Diagnoses Date/Time ESOPHAGOGASTRODUODENOSCOPY Cirrhosis Alc oholic (HCC) 02/10/2022 8:45 AM CDT Hypertension Portal (HCC) Health Maintenance Due Date Last Done Comments Hepatitis A Vaccines (1 of 2 - 07/10/1991 Risk 2-dose series) Pneumococcal vaccine (0-64 years) 1996 (1 - PCV) Cervical Cancer Screening 02/28/2017 02/28/2014, 02/28/2014 COVID-19 Vaccine (3 - Booster for 06/10/2021 04/15/2021, Pfizer series) Influenza Vaccine (#1) 2022 03/07/2014, 02/26/2009, 02/26/2009, Additional history exists Abdominal Ultrasound 05/28/2022 11/25/2021, 11/09/2021, 07/26/2021, Additional history exists Creatinine Level 01/29/2023 01/29/2022, 01/28/2022, 01/27/2022, Additional history exists Potassium Level 01/29/2023 01/29/2022, 01/28/2022, 01/27/2022, Additional history exists Sodium Level 01/29/2023 01/29/2022, 01/28/2022, 01/27/2022, Additional history exists DTaP,Tdap,and Td Vaccines (7 - Td 03/07/2024 03/07/2014, , or Tdap) 05/26/1995, Additional history exists Hepatitis B Vaccines Completed 12/28/2000, 12/17/1997, 04/30/1997 Depression Screening (Annual Completed 12/02/2021 PHQ-2) HIV Screening Completed 01/25/2022, 09/30/2021 Medical Devices Implanted Type Area Hot Car Charger Device Shelf Model / Identifier Expiration Serial / Date Lot Intrauterine Intrauterine N/A: Device Device Cervix Procedures Procedure Name Priority Date/Time Associated Comments Diagnosis CBC WITH DIFFERENTIAL, B Routine 01/29/2022 Res ults for 4:39 AM CDT this procedure are in the results section. BASIC METABOLIC PANEL, Routine 01/29/2022 Resul ts for S/P 4:39 AM CDT this procedure are in the results section. HEMATOCRIT, B STAT 01/28/2022 Results for 1:36 PM CDT this procedure are in the results section. US LOWER EXTREMITY VEINS RAD - Routine 01/28/2022 Re sults for BILATERAL (most 10:46 AM CDT this procedure inpatients and are in the all results outpatients) section. CT ABDOMEN PELVIS RAD - Routine 01/28/2022 Results f or WITHOUT IV CONTRAST (most 10:18 AM CDT this pro cedure inpatients and are in the all results outpatients) section. ADULT OXYGEN THERAPY Routine 01/28/2022 8:01 AM CDT CYSTATIN C WITH EGFR Routine 01/28/2022 Results for 5:28 AM CDT this procedure are in the results section. BASIC METABOLIC PANEL, Routine 01/28/2022 Resul ts for S/P 5:28 AM CDT this procedure are in the results section. CBC WITHOUT Routine 01/28/2022 Results for DIFFERENTIAL, B 5:28 AM CDT this procedu re are in the results section. ADULT OXYGEN THERAPY Routine 01/27/2022 8:01 PM CDT US PARACENTESIS WITH RAD - Routine 01/27/2022 Result s for IMAGING GUIDANCE (most 10:34 AM CDT this proced ure inpatients and are in the all results outpatients) section. ADULT OXYGEN THERAPY Routine 01/27/2022 8:02 AM CDT CBC WITH DIFFERENTIAL, B Routine 01/27/2022 Res ults for 4:47 AM CDT this procedure are in the results section. BASIC METABOLIC PANEL, Routine 01/27/2022 Resul ts for S/P 4:47 AM CDT this procedure are in the results section. CYSTATIN C WITH EGFR Routine 01/27/2022 Results for 4:43 AM CDT this procedure are in the results section. PREPARE FRESH FROZEN STAT 01/26/2022 PLASMA 10:30 PM CDT ADULT OXYGEN THERAPY Routine 01/26/2022 8:01 PM CDT COAG FACTOR XI ACTIVITY Timed 01/26/2022 Resu lts for ASSAY, P 6:58 PM CDT this procedure are in the results section. COAG FACTOR XII ACTIVITY Timed 01/26/2022 Res ults for ASSAY, P 6:58 PM CDT this procedure are in the results section. COAG FACTOR IX ACTIVITY Timed 01/26/2022 Resu lts for ASSAY, P 6:58 PM CDT this procedure are in the results section. COAG FACTOR VIII Timed 01/26/2022 Results for ACTIVITY ASSAY, P 6:58 PM CDT this proce dure are in the results section. COAG FACTOR X ACTIVITY Timed 01/26/2022 Resul ts for ASSAY, P 6:58 PM CDT this procedure are in the results section. COAG FACTOR VII ACTIVITY Timed 01/26/2022 Res ults for ASSAY, P 6:58 PM CDT this procedure are in the results section. COAG FACTOR V ACTIVITY Timed 01/26/2022 Resul ts for ASSAY, P 6:58 PM CDT this procedure are in the results section. COAG FACTOR II ACTIVITY Timed 01/26/2022 Resu lts for ASSAY, P 6:58 PM CDT this procedure are in the results section. REPTILASE TIME, P Timed 01/26/2022 Results fo r 6:58 PM CDT this procedure are in the results section. PT MIX 1:1 Timed 01/26/2022 Results for 6:58 PM CDT this procedure are in the results section. APTT MIX 1:1 Timed 01/26/2022 Results for 6:58 PM CDT this procedure are in the results section. DILUTE RUSSELLS VIPER Timed 01/26/2022 Result s for VENOM TEST, P 6:58 PM CDT this procedure are in the results section. HC FIBRINOGEN ANTIGEN Timed 01/26/2022 Result s for 6:58 PM CDT this procedure are in the results section. SOLUBLE FIBRIN MONOMER Timed 01/26/2022 Resul ts for 6:58 PM CDT this procedure are in the results section. DIC/ICF PROF Timed 01/26/2022 Results for 6:58 PM CDT this procedure are in the results section. COPPER, S Timed 01/26/2022 Results for 6:57 PM CDT this procedure are in the results section. ZINC, S Timed 01/26/2022 Results for 6:57 PM CDT this procedure are in the results section. ADULT OXYGEN THERAPY Routine 01/26/2022 4:58 PM CDT ADULT OXYGEN THERAPY Routine 01/26/2022 4:58 PM CDT LDA ANE ENDOTRACHEAL Routine 01/26/2022 Results for AIRWAY 3:51 PM CDT this procedure are in the results section. GASTROENTEROLOGY IMAGE Routine 01/26/2022 Resul ts for EXAM 3:20 PM CDT this procedure are in the results section. UPPER GI ENDOSCOPY Routine 01/26/2022 Results f or 3:18 PM CDT this procedure are in the results section. EGD Routine 01/26/2022 (ESOPHAGEALGASTRODUODENO 3:18 PM CDT SCOPY) HEMATOCRIT, B STAT 01/26/2022 Results for 11:16 AM CDT this procedure are in the results section. HEMOGLOBIN, B STAT 01/26/2022 Results for 11:16 AM CDT this procedure are in the results section. TRANSFUSE FRESH FROZEN Routine 01/26/2022 PLASMA 10:27 AM CDT TRANSFUSE EMERGENCY Routine 01/26/2022 RELEASED 7:56 AM CDT (UNCROSSMATCHED) RED BLOOD CELLS TRANSFUSE FRESH FROZEN Routine 01/26/2022 PLASMA 7:12 AM CDT ECG Routine 01/26/2022 Results for 5:05 AM CDT this procedure are in the results section. PROTHROMBIN TIME (PT), P Routine 01/26/2022 Res ults for 4:53 AM CDT this procedure are in the results section. BASIC METABOLIC PANEL, Routine 01/26/2022 Resul ts for S/P 4:53 AM CDT this procedure are in the results section. CBC WITH DIFFERENTIAL, B Routine 01/26/2022 Res ults for 4:53 AM CDT this procedure are in the results section. PREPARE RED BLOOD CELLS STAT 01/26/2022 4:48 AM CDT TYPE AND SCREEN Routine 01/26/2022 Results for 4:48 AM CDT this procedure are in the results section. HIV-1/-2 AG AND AB Routine 01/25/2022 Results f or SCREEN, PLASMA 3:36 PM CDT this procedur e are in the results section. ASPARTATE STAT 01/25/2022 Results for AMINOTRANSFERASE (AST), 9:56 AM CDT this procedure S/P are in the results section. TRANSFUSE RED BLOOD Routine 01/25/2022 CELLS 9:41 AM CDT SPSMA RESULT Routine 01/25/2022 Results for 5:35 AM CDT this procedure are in the results section. CBC WITH DIFFERENTIAL, B Routine 01/25/2022 Res ults for 5:35 AM CDT this procedure are in the results section. BASIC METABOLIC PANEL, Routine 01/25/2022 Resul ts for S/P 5:35 AM CDT this procedure are in the results section. LACTATE DEHYDROGENASE Routine 01/25/2022 Result s for (LD), S 5:35 AM CDT this procedure are in the results section. PROTHROMBIN TIME (PT), P Routine 01/25/2022 Res ults for 5:35 AM CDT this procedure are in the results section. HAPTOGLOBIN, S Routine 01/25/2022 Results for 5:35 AM CDT this procedure are in the results section. MAGNESIUM, S Routine 01/25/2022 Results for 5:30 AM CDT this procedure are in the results section. DIRECT ANTIGLOBULIN TEST Routine 01/25/2022 Res ults for (POLYSPECIFIC) 5:30 AM CDT this procedur e are in the results section. RETICULOCYTES, B Routine 01/25/2022 Results for 5:30 AM CDT this procedure are in the results section. DIPSTICK, U Routine 01/24/2022 Results for 3:32 PM CDT this procedure are in the results section. HC OSMOLALITY ASSAY Routine 01/24/2022 Results for URINE 3:32 PM CDT this procedure are in the results section. PH, RANDOM, U Routine 01/24/2022 Results for 3:32 PM CDT this procedure are in the results section. MICROSCOPIC MANUAL Routine 01/24/2022 Results f or 3:32 PM CDT this procedure are in the results section. CREATININE, RANDOM, U Routine 01/24/2022 Result s for 3:32 PM CDT this procedure are in the results section. SODIUM, RANDOM, U Routine 01/24/2022 Results fo r 3:32 PM CDT this procedure are in the results section. URINALYSIS WITH Routine 01/24/2022 Results for MICROSCOPIC 3:32 PM CDT this procedure are in the results section. BILIRUBIN, TOT, S/P Routine 01/24/2022 Results for 1:35 PM CDT this procedure are in the results section. ADULT OXYGEN THERAPY Routine 01/24/2022 8:01 AM CDT CBC WITHOUT Routine 01/24/2022 Results for DIFFERENTIAL, B 5:22 AM CDT this procedu re are in the results section. BASIC METABOLIC PANEL, Routine 01/24/2022 Resul ts for S/P 5:22 AM CDT this procedure are in the results section. BILIRUBIN DIRECT, S/P Routine 01/24/2022 Result s for 5:17 AM CDT this procedure are in the results section. CYSTATIN C WITH EGFR Routine 01/24/2022 Results for 5:17 AM CDT this procedure are in the results section. PREPARE FRESH FROZEN Routine 01/24/2022 PLASMA 2:30 AM CDT ADULT OXYGEN THERAPY Routine 01/23/2022 8:01 PM CDT ADULT OXYGEN THERAPY Routine 01/23/2022 4:15 PM CDT ADULT OXYGEN THERAPY Routine 01/23/2022 4:15 PM CDT UPPER GI ENDOSCOPY Routine 01/23/2022 Results f or 3:35 PM CDT this procedure are in the results section. EGD Routine 01/23/2022 (ESOPHAGEALGASTRODUODENO 3:35 PM CDT SCOPY) GASTROENTEROLOGY IMAGE Routine 01/23/2022 Resul ts for EXAM 3:35 PM CDT this procedure are in the results section. TRANSFUSE FRESH FROZEN Routine 01/23/2022 PLASMA 1:29 PM CDT PROTHROMBIN TIME (PT), P Routine 01/23/2022 Res ults for 10:58 AM CDT this procedure are in the results section. PROTHROMBIN TIME (PT), P STAT 01/23/2022 Res ults for 10:58 AM CDT this procedure are in the results section. BASIC METABOLIC PANEL, Routine 01/23/2022 Resul ts for S/P 5:27 AM CDT this procedure are in the results section. CBC WITH DIFFERENTIAL, B Routine 01/23/2022 Res ults for 5:27 AM CDT this procedure are in the results section. AMMONIA Routine 01/23/2022 Results for 5:27 AM CDT this procedure are in the results section. HEMOGLOBIN, B Timed 01/22/2022 Results for 10:18 PM CDT this procedure are in the results section. TRANSFUSE RED BLOOD Routine 01/22/2022 CELLS 4:20 PM CDT BASIC METABOLIC PANEL, STAT 01/22/2022 Resul ts for S/P 9:40 AM CDT this procedure are in the results section. CBC WITH DIFFERENTIAL, B Routine 01/22/2022 Res ults for 9:40 AM CDT this procedure are in the results section. PREPARE RED BLOOD CELLS Routine 01/22/2022 9:39 AM CDT PREPARE RED BLOOD CELLS Routine 01/22/2022 9:39 AM CDT TYPE AND SCREEN Routine 01/22/2022 Results for 9:39 AM CDT this procedure are in the results section. CBC WITH DIFFERENTIAL, B STAT 01/22/2022 Res ults for 9:39 AM CDT this procedure are in the results section. PROTHROMBIN TIME (PT), P Routine 01/22/2022 Res ults for 5:22 AM CDT this procedure are in the results section. US PARACENTESIS WITH RAD - Routine 01/21/2022 Result s for IMAGING GUIDANCE (most 10:49 AM CDT this proced ure inpatients and are in the all results outpatients) section. PROTEIN, TOTAL, BF Timed 01/21/2022 Results f or 10:00 AM CDT this procedure are in the results section. CELL COUNT AND Timed 01/21/2022 Results for DIFFERENTIAL, BF 10:00 AM CDT this proced ure are in the results section. BACTERIAL CULTURE, Timed 01/21/2022 Results f or AEROBIC + SUSC 10:00 AM CDT this procedur e are in the results section. COMPREHENSIVE METABOLIC Routine 01/21/2022 Resu lts for PANEL, S/P 7:25 AM CDT this procedure are in the results section. CYSTATIN C WITH EGFR Routine 01/21/2022 Results for 7:25 AM CDT this procedure are in the results section. CBC WITH DIFFERENTIAL, B Routine 01/21/2022 Res ults for 7:25 AM CDT this procedure are in the results section. IRON AND TOT Routine 01/21/2022 Results for IRON-BINDING CAPACITY, 7:21 AM CDT this procedure S/P are in the results section. FERRITIN, S Routine 01/21/2022 Results for 7:21 AM CDT this procedure are in the results section. HEPATIC FUNCTION PANEL, STAT 01/21/2022 Resu lts for S 2:40 AM CDT this procedure are in the results section. LIPASE, S/P STAT 01/21/2022 Results for 2:40 AM CDT this procedure are in the results section. CT ABDOMEN PELVIS RAD - 01/20/2022 Results fo r WITHOUT IV CONTRAST Semiurgent 10:00 PM CDT this pro cedure (Fast; most ED are in the patients; some results inpatients) section. HC URINALYSIS AUTO WO Routine 01/20/2022 Result s for MICRO 9:05 PM CDT this procedure are in the results section. DIPSTICK, U STAT 01/20/2022 Results for 8:57 PM CDT this procedure are in the results section. PH, U STAT 01/20/2022 Results for 8:57 PM CDT this procedure are in the results section. OSMOLALITY, U STAT 01/20/2022 Results for 8:57 PM CDT this procedure are in the results section. MICROSCOPIC AUTOMATED STAT 01/20/2022 Result s for 8:57 PM CDT this procedure are in the results section. GRAM'S ST, U STAT 01/20/2022 Results for 8:57 PM CDT this procedure are in the results section. URINALYSIS WITH STAT 01/20/2022 Results for MICROSCOPIC 8:57 PM CDT this procedure are in the results section. BACTERIAL CULTURE, STAT 01/20/2022 Results f or AEROBIC + SUSC, URINE 8:57 PM CDT this p rocedure are in the results section. VBG & LYTES CG8+, POCT, Routine 01/20/2022 Resu lts for B 8:54 PM CDT this procedure are in the results section. LACTATE, POCT, B Routine 01/20/2022 Results for 8:51 PM CDT this procedure are in the results section. LACTATE, POCT, B STAT 01/20/2022 Results for 8:49 PM CDT this procedure are in the results section. VBG & LYTES CG8+, POCT, STAT 01/20/2022 Resu lts for B 8:49 PM CDT this procedure are in the results section. HUMAN CHORIONIC STAT 01/20/2022 Results for GONADOTROPIN (HCG), 8:49 PM CDT this pro cedure EDDI, are in the results section. BASIC METABOLIC PANEL, STAT 01/20/2022 Resul ts for S/P 8:49 PM CDT this procedure are in the results section. CBC WITH DIFFERENTIAL, B Routine 01/20/2022 Hepatic Failure Results for 12:07 PM CDT Unspecified this procedure Without Coma (HCC) are in th e results section. COMPREHENSIVE METABOLIC Routine 01/20/2022 Hepatic Failure R esults for PANEL, S/P 12:07 PM CDT Unspecified this procedure Without Coma (HCC) are in th e results section. ECG Routine 01/14/2022 Results for 11:11 AM CDT this procedure are in the results section. CBC WITHOUT Routine 01/14/2022 Results for DIFFERENTIAL, B 8:11 AM CDT this procedu re are in the results section. COMPREHENSIVE METABOLIC Routine 01/13/2022 Resu lts for PANEL, S/P 8:42 PM CDT this procedure are in the results section. CBC WITHOUT Routine 01/13/2022 Results for DIFFERENTIAL, B 8:42 PM CDT this procedu re are in the results section. US PARACENTESIS WITH RAD - Routine 01/13/2022 Result s for IMAGING GUIDANCE (most 3:02 PM CDT this proced ure inpatients and are in the all results outpatients) section. CELL COUNT AND Timed 01/13/2022 Results for DIFFERENTIAL, BF 2:42 PM CDT this proced ure are in the results section. CBC WITHOUT Routine 01/13/2022 Results for DIFFERENTIAL, B 7:09 AM CDT this procedu re are in the results section. COMPREHENSIVE METABOLIC Routine 01/13/2022 Resu lts for PANEL, S/P 7:09 AM CDT this procedure are in the results section. BASIC METABOLIC PANEL, Timed 01/12/2022 Resul ts for S/P 4:17 AM CDT this procedure are in the results section. HEMOGLOBIN, B Timed 01/12/2022 Results for 4:17 AM CDT this procedure are in the results section. HEMOGLOBIN, B Timed 01/11/2022 Results for 4:35 PM CDT this procedure are in the results section. COMPREHENSIVE METABOLIC Routine 01/11/2022 Resu lts for PANEL, S/P 8:36 AM CDT this procedure are in the results section. HEMOGLOBIN, B Timed 01/11/2022 Results for 6:44 AM CDT this procedure are in the results section. COMPREHENSIVE METABOLIC Routine 01/10/2022 Resu lts for PANEL, S/P 10:11 PM CDT this procedure are in the results section. CBC WITHOUT Routine 01/10/2022 Results for DIFFERENTIAL, B 10:11 PM CDT this procedu re are in the results section. HEMOGLOBIN, B Timed 01/10/2022 Results for 10:11 PM CDT this procedure are in the results section. HEMOGLOBIN, B Timed 01/10/2022 Results for 8:27 PM CDT this procedure are in the results section. TRANSFUSE RED BLOOD Routine 01/10/2022 CELLS 4:00 PM CDT DRUG SCREEN URINE Routine 01/10/2022 Results fo r 1:46 PM CDT this procedure are in the results section. HEMOGLOBIN, B Timed 01/10/2022 Results for 12:22 PM CDT this procedure are in the results section. US LIVER WITH LIVER RAD - Routine 01/10/2022 Results for DOPPLER (most 11:10 AM CDT this procedure inpatients and are in the all results outpatients) section. US ABDOMEN LIMITED RAD - Routine 01/10/2022 Results for (most 11:07 AM CDT this procedure inpatients and are in the all results outpatients) section. US PARACENTESIS WITH RAD - Routine 01/10/2022 Result s for IMAGING GUIDANCE (most 11:06 AM CDT this proced ure inpatients and are in the all results outpatients) section. AMYLASE, BF Timed 01/10/2022 Results for 9:51 AM CDT this procedure are in the results section. ALBUMIN, BODY FLUID Timed 01/10/2022 Results for 9:51 AM CDT this procedure are in the results section. LACTATE DEHYDROGENASE Timed 01/10/2022 Result s for (LD), BF 9:51 AM CDT this procedure are in the results section. PROTEIN, TOTAL, BF Timed 01/10/2022 Results f or 9:51 AM CDT this procedure are in the results section. GLUCOSE, BODY FLUID Timed 01/10/2022 Results for 9:51 AM CDT this procedure are in the results section. CELL COUNT AND Timed 01/10/2022 Results for DIFFERENTIAL, BF 9:51 AM CDT this proced ure are in the results section. BACTERIAL CULTURE, Timed 01/10/2022 Results f or AEROBIC + SUSC 9:51 AM CDT this procedur e are in the results section. SPSMA RESULT Routine 01/10/2022 Results for 4:04 AM CDT this procedure are in the results section. HEMOGLOBIN, B STAT 01/10/2022 Results for 4:04 AM CDT this procedure are in the results section. COMPREHENSIVE METABOLIC Routine 01/10/2022 Resu lts for PANEL, S/P 4:04 AM CDT this procedure are in the results section. CBC WITH DIFFERENTIAL, B Routine 01/10/2022 Res ults for 4:04 AM CDT this procedure are in the results section. CYSTATIN C WITH EGFR Routine 01/10/2022 Results for 4:04 AM CDT this procedure are in the results section. HEPATIC FUNCTION PANEL, Routine 01/10/2022 Resu lts for S 4:04 AM CDT this procedure are in the results section. HAPTOGLOBIN, S Routine 01/10/2022 Results for 4:04 AM CDT this procedure are in the results section. LACTATE DEHYDROGENASE Routine 01/10/2022 Result s for (LD), S 4:04 AM CDT this procedure are in the results section. MAGNESIUM, S Routine 01/10/2022 Results for 4:04 AM CDT this procedure are in the results section. TRANSFUSE RED BLOOD Routine 01/10/2022 CELLS 12:14 AM CDT LACTATE, B/P Routine 01/09/2022 Results for 9:13 PM CDT this procedure are in the results section. HEMOGLOBIN, B Routine 01/09/2022 Results for 9:13 PM CDT this procedure are in the results section. TRANSFUSE RED BLOOD Routine 01/09/2022 CELLS 4:39 PM CDT DX CHEST PORTABLE 1 VIEW RAD - Routine 01/09/2022 Re sults for (most 4:34 PM CDT this procedure inpatients and are in the all results outpatients) section. LACTATE, B/P Timed 01/09/2022 Results for 3:19 PM CDT this procedure are in the results section. ECG Routine 01/09/2022 Results for 2:34 PM CDT this procedure are in the results section. SARS CORONAVIRUS 2, RNA, Routine 01/09/2022 Res ults for RAPID POC, V 1:45 PM CDT this procedure are in the results section. BACTERIA / RAUDEL STAT 01/09/2022 Results f or CULTURE, BLOOD 10:11 AM CDT this procedur e are in the results section. LACTATE, POCT, B STAT 01/09/2022 Results for 10:04 AM CDT this procedure are in the results section. GLUCOSE POCT, B STAT 01/09/2022 Results for 10:04 AM CDT this procedure are in the results section. DIPSTICK, U STAT 01/09/2022 Results for 10:04 AM CDT this procedure are in the results section. PH, RANDOM, U STAT 01/09/2022 Results for 10:04 AM CDT this procedure are in the results section. HC OSMOLALITY ASSAY STAT 01/09/2022 Results for URINE 10:04 AM CDT this procedure are in the results section. MICROSCOPIC MANUAL STAT 01/09/2022 Results f or 10:04 AM CDT this procedure are in the results section. URINALYSIS WITH STAT 01/09/2022 Results for MICROSCOPIC 10:04 AM CDT this procedure are in the results section. BACTERIAL CULTURE, STAT 01/09/2022 Results f or AEROBIC + SUSC, URINE 10:04 AM CDT this p rocedure are in the results section. BACTERIA / RAUDEL STAT 01/09/2022 Results f or CULTURE, BLOOD 10:04 AM CDT this procedur e are in the results section. HEPATIC FUNCTION PANEL, STAT 01/09/2022 Resu lts for S 10:03 AM CDT this procedure are in the results section. PROTHROMBIN TIME (PT), P STAT 01/09/2022 Res ults for 10:03 AM CDT this procedure are in the results section. CBC WITH DIFFERENTIAL, B STAT 01/09/2022 Res ults for 10:03 AM CDT this procedure are in the results section. HUMAN CHORIONIC STAT 01/09/2022 Results for GONADOTROPIN (HCG), 10:02 AM CDT this pro cedure EDDI, are in the results section. BASIC METABOLIC PANEL, STAT 01/09/2022 Resul ts for S/P 10:02 AM CDT this procedure are in the results section. GLUCOSE POCT, B Routine 01/09/2022 Results for 10:01 AM CDT this procedure are in the results section. HC URINALYSIS AUTO WO Routine 01/09/2022 Result s for MICRO 10:00 AM CDT this procedure are in the results section. AMMONIA STAT 01/09/2022 Results for 9:59 AM CDT this procedure are in the results section. PREPARE RED BLOOD CELLS Routine 01/09/2022 9:56 AM CDT PREPARE RED BLOOD CELLS Routine 01/09/2022 9:56 AM CDT PREPARE RED BLOOD CELLS Routine 01/09/2022 9:56 AM CDT LIPASE, S/P Routine 01/09/2022 Results for 9:56 AM CDT this procedure are in the results section. TYPE AND SCREEN STAT 01/09/2022 Results for 9:56 AM CDT this procedure are in the results section. LACTATE, POCT, B Routine 01/09/2022 Results for 9:53 AM CDT this procedure are in the results section. PARACENTESIS Routine 12/21/2021 Results for 2:48 PM [...] GONADOTROPIN (HCG), 1:54 AM CDT this pro cedure EDDI, are in the results section. CBC [...] this procedure are in the results section. from Last 3 Months Results (ABNORMAL) CBC with Differential, Blood (01/29/2022 4:39 AM CDT)Only the most recent of22 resultswithin the time period is included. [facility] Method Time Signature Hemoglobin 8.0 (L) 11.6 - 01/29/2022 DTL 15.0 g/dL 5:32 AM CDT Hematocrit 23.6 (L) 35.5 - 01/29/2022 DTL 44.9 % 5:32 AM CDT Erythrocytes 2.40 (L) 3.92 - 01/29/2022 DTL 5.13 5:32 AM CDT x10(12)/L MCV 98.3 (H) 78.2 - 01/29/2022 DTL 97.9 fL 5:32 AM CDT RBC Distrib Width 23.7 (H) 12.2 - 01/29/2022 DTL 16.1 % 5:32 AM CDT Platelet Count 47 (L) 157 - 371 01/29/2022 DTL x10(9)/L 6:20 AM CDT Comment: Results confirmed by smear, no clumping or interference seen. Leukocytes 4.9 3.4 - 9.6 x10(9)/L 01/29/2022 6:20 AM C DT DTL Neutrophils 3.29 1.56 - 6.45 x10(9)/L 01/29/2022 5:32 A M CDT DTL Lymphocytes 0.91 (L) 0.95 - 3.07 x10(9)/L 01/29/2022 5:32 A M CDT DTL Monocytes 0.54 0.26 - 0.81 x10(9)/L 01/29/2022 5:32 AM CDT DTL Eosinophils 0.10 0.03 - 0.48 x10(9)/L 01/29/2022 5:32 A M CDT DTL Basophils <0.03 0.01 - 0.08 x10(9)/L 01/29/2022 5:32 AM CDT DTL Specimen Anatomical Collection Method Collection Time Receive d Time (Source) Location / / Volume Laterality Blood (Blood, 01/29/2022 4:39 AM 01/30/20 5:25 Venous) CDT AM CDT Yue Silver M.D. LAB BLOOD ADD-ON Performing Organization Address City/State/ZIP Code Phon e Number [facility] - [address] [place], [place] [address] [facility] [place] [address] Laboratories-[facility] 200 [facility] (ABNORMAL) Basic Metabolic Panel (01/29/2022 4:39 AM CDT)Only the most recent of 23 resultswithin the time period is included. Analysis Performed At Patho logist Time Signature Potassium, S 3.9 3.6 - 5.2 01/29/2022 DTL mmol/L 6:12 AM CDT Sodium, S 138 135 - 145 01/29/2022 DTL mmol/L 6:12 AM CDT Chloride, S 105 98 - 107 01/29/2022 DTL mmol/L 6:12 AM CDT Bicarbonate, S 22 22 - 29 01/29/2022 DTL mmol/L 6:12 AM CDT Anion Gap 11 7 - 15 01/29/2022 DTL 6:12 AM CDT BUN (Blood Urea 6 6 - 21 01/29/2022 DTL Nitrogen), S mg/dL 6:12 AM CDT Creatinine 0.55 (L) 0.59 - 01/29/2022 DTL 1.04 mg/dL 6:12 AM CDT Estimated GFR >90 >=60 01/29/2022 DTL (eGFR) mL/min/BSA 6:12 AM CDT Comment: Estimated GFR calculated using the 2020 CKD_EPI creatinine equation. Calcium, Total, S 9.1 8.6 - 10.0 mg/dL 01/29/2022 6:12 AM CDT DTL Glucose, S 109 70 - 140 mg/dL 01/29/2022 6:12 AM CDT D TL Specimen Anatomical Collection Method Collection Time Receive d Time (Source) Location / / Volume Laterality Blood (Blood, 01/29/2022 4:39 AM 01/30/20 5:52 Venous) CDT AM CDT Yue Silver M.D. LAB BLOOD ADD-ON Performing Organization Address City/[facility] Phon e Number [facility] - [address] [place], [place] [address] [place] [address] [place], [place] [id number] [place] [address] (ABNORMAL) Hematocrit (01/28/2022 1:36 PM CDT)Only the most recent of2 results within the time period is included. P athologist Signature Hematocrit 22.0 (L) 35.5 - 44.9 01/28/2022 [facility] % 2:10 PM CDT Specimen Anatomical Collection Method Collection Time Receive d Time (Source) Location / / Volume Laterality Blood (Blood, 01/28/2022 1:36 PM 01/29/20 2:08 Venous) CDT PM CDT Yue Silver M.D. LAB BLOOD ADD-ON Performing Organization Address City/State/[facility] Code Phon e Number [facility] [address] [place], [place] [address] [facility] [place] [address] [place] Lower Extremity Veins Bilateral (01/28/2022 10:46 AM CDT) Anatomical Region Laterality Modality Lower Extremity, Ultrasound RST LOS, Ultrasound ARZ LOS, Shashank ateral Ultrasound Ultrasound FLA LOS Specimen (Source) Anatomical Collection Method Collection Time Re ceived Time Location / / Volume Laterality 01/28/2022 10:47 AM CDT Impressions 01/28/2022 10:50 AM CDT 1. Negative for acute DVT within the visualized bilateral lower extremity veins. 2. Mild to moderate subcutaneous edema b ilaterally most marked within the region of the calves. Narrative 01/28/2022 10:50 AM CDT EXAM: US LOWER EXTREMITY VEINS BILATERAL Exam performed with color and spectral D oppler analysis. COMPARISON: None. FINDINGS: RIGHT: Common Femoral Vein: Negative. Profunda Femoral Vein: Negative. Femoral Vein: Negative. Popliteal Vein: Negative. Gastrocnemius Veins: Negative where seen . Soleal Veins: Negative where seen. Posterior Tibial Veins: Negative where s een. Peroneal Veins: Negative where seen. Great Saphenous Vein: Negative where see n. Small Saphenous Vein: Not Evaluated. Popliteal Fossa: Heterogenous cystic les ion likely represents a Grullon's cyst. Other: Mild to moderate subcutaneous jo ma most marked within the region of the calf. LEFT: Common Femoral Vein: Negative. Profunda Femoral Vein: Negative. Femoral Vein: Negative. Popliteal Vein: Negative. Gastrocnemius Veins: Negative where seen . Soleal Veins: Negative where seen. Posterior Tibial Veins: Negative where s een. Peroneal Veins: Negative where seen. Great Saphenous Vein: Negative where see n. Small Saphenous Vein: Not Evaluated. Popliteal Fossa: Heterogenous cystic les ion likely represents a Grullon's cyst. Other: Mild to moderate subcutaneous jo ma most marked in the region of the calf. Information on venous thrombosis and man agement can be found on the [employer] site. Link [email or web address] Procedure Note Migue Talavera M.D. - 01/28/2022Form atting of this note might be different from the original. EXAM: US LOWER EXTREMITY VEINS BILATERAL Exam performed with color and spectral D oppler analysis. COMPARISON: None. FINDINGS: RIGHT: Common Femoral Vein: Negative. Profunda Femoral Vein: Negative. Femoral Vein: Negative. Popliteal Vein: Negative. Gastrocnemius Veins: Negative where seen . Soleal Veins: Negative where seen. Posterior Tibial Veins: Negative where s een. Peroneal Veins: Negative where seen. Great Saphenous Vein: Negative where see n. Small Saphenous Vein: Not Evaluated. Popliteal Fossa: Heterogenous cystic les ion likely represents a Grullon's cyst. Other: Mild to moderate subcutaneous jo ma most marked within the region of the calf. LEFT: Common Femoral Vein: Negative. Profunda Femoral Vein: Negative. Femoral Vein: Negative. Popliteal Vein: Negative. Gastrocnemius Veins: Negative where seen . Soleal Veins: Negative where seen. Posterior Tibial Veins: Negative where s een. Peroneal Veins: Negative where seen. Great Saphenous Vein: Negative where see n. Small Saphenous Vein: Not Evaluated. Popliteal Fossa: Heterogenous cystic les ion likely represents a Grullon's cyst. Other: Mild to moderate subcutaneous jo ma most marked in the region of the calf. Information on venous thrombosis and man agement can be found on the [employer] site. Link [email or web address] IMPRESSION: 1. Negative for acute DVT within the vis ualized bilateral lower extremity veins. 2. Mild to moderate subcutaneous edema b ilaterally most marked within the region of the calves. Gerda Hull M.D., M.S. IMG US PROCEDURES CT Abdomen Pelvis without IV Contrast (01/28/2022 10:18 AM CDT)Only the most recent of2 resultswithin the time period is included. Anatomical Region Laterality Modality Abdomen, Pelvis, Abdominal RST LOS, N/A Comp uted Tomography, Computed Abdominal ARZ LOS, Abdominal FLA LOS José Miguel ography Specimen (Source) Anatomical Collection Method Collection Time Re ceived Time Location / / Volume Laterality 01/28/2022 10:17 AM CDT Impressions 01/28/2022 10:39 AM CDT Slight interval decrease in the large volume ascites following the paracentesis. No hyperdensity within the ascites fluid to suggest internal hemorrhage. Narrative 01/28/2022 10:39 AM CDT EXAM: ??CT ABDOMEN PELVIS WITHOUT IV CONTRAST COMPARISON: ??Compared to CT 01/20/2022 FINDINGS: Lack of IV contrast limits the assessment of the vasculature. Large volume abdominopelvic ascites is slightly decreased compared t o prior. No evidence of increased density within the ascites fluid to suggest internal hemorrhage. Di ffuse body wall and mesenteric edema is unchanged. Heterogenous appearance of the liver par enchyma with irregular outline is similar to prior. Moderate splenomegaly. Mild pancreatic parenchyma l atrophy with diffuse punctate foci of calcifications, suggestive of changes of chronic pancrea titis. Hyperdense gallbladder sludge/microlithiasis. IUD. Small right and trace left pleural effus ion with scattered areas of subsegmental atelectasis. Demineralization. Multilevel compression deformities of T10, T11, L1, L2, L3 and L4 are unchanged. Procedure Note Jaylen Moctezuma M.B.B.S., M.D. - EXAM: CT ABDOMEN PELVIS WITHOUT IV CONTR AST COMPARISON: Compared to CT 01/20/2022 FINDINGS: Lack of IV contrast limits the assessment of the vasculature. Large volume abdominopelvic ascites is slightly decreased compared t o prior. No evidence of increased density within the ascites fluid to suggest internal hemorrhage. Di ffuse body wall and mesenteric edema is unchanged. Heterogenous appearance of the liver par enchyma with irregular outline is similar to prior. Moderate splenomegaly. Mild pancreatic parenchyma l atrophy with diffuse punctate foci of calcifications, suggestive of changes of chronic pancrea titis. Hyperdense gallbladder sludge/microlithiasis. IUD. Small right and trace left pleural effus ion with scattered areas of subsegmental atelectasis. Demineralization. Multilevel compression deformities of T10, T11, L1, L2, L3 and L4 are unchanged. IMPRESSION: Slight interval decrease in the large vo lume ascites following the paracentesis. No hyperdensity within the ascites fluid to suggest internal hemorrhage. Gerda Hull M.D., M.S. IMG CT PROCEDURES (ABNORMAL) Cystatin C with Estimated GFR (01/28/2022 5:28 AM CDT)Only the most recent of6 resultswithin the time period is included. P athologist Signature eGFR by 47 (L) >60 01/28/2022 DTL Cystatin C mL/min/BSA 7:00 AM CDT Comment: Estimated GFR calculated using the [...] lower with the new assay. Cystatin C 1.51 (H) 0.63 - 1.03 mg/L 01/28/2022 7:00 AM CDT DTL Specimen Anatomical Collection Method Collection Time Receive d Time (Source) Location / / Volume Laterality Blood (Blood, 01/28/2022 5:28 AM 01/29/20 6:19 Venous) CDT AM CDT Darrick Santillan LAB BLOOD ADD-ON Performing Organization Address City/State/ZIP Code Phon e Number [facility] - [address] [place], [place] [address] [facility] [place] [address] [facility] [address] [facility] (ABNORMAL) CBC without Differential (01/28/2022 5:28 AM CDT)Only the most recent of12 resultswithin the time period is included. [facility] gist Method Time Signature Hemoglobin 7.4 (L) 11.6 - 01/28/2022 DTL 15.0 g/dL 6:05 AM CDT Hematocrit 22.2 (L) 35.5 - 01/28/2022 DTL 44.9 % 6:05 AM CDT Erythrocytes 2.23 (L) 3.92 - 01/28/2022 DTL 5.13 6:05 AM CDT x10(12)/L MCV 99.6 (H) 78.2 - 01/28/2022 DTL 97.9 fL 6:05 AM CDT RBC Distrib Width 24.1 (H) 12.2 - 01/28/2022 DTL 16.1 % 6:05 AM CDT Platelet Count 43 (L) 157 - 371 01/28/2022 DTL x10(9)/L 6:05 AM CDT Leukocytes 5.0 3.4 - 9.6 01/28/2022 DTL x10(9)/L 6:05 AM CDT Specimen Anatomical Collection Method Collection Time Receive d Time (Source) Location / / Volume Laterality Blood (Blood, 01/28/2022 5:28 AM 01/29/20 5:56 Venous) CDT AM CDT Gerda Hull M.D., M.S. LAB BLOOD ADD-ON Performing Organization Address City/State/ZIP Code Phon e Number [facility] - [address] [place], [place] [address] [facility] [place] [address] Laboratories-[facility] [address] [place] Paracentesis with Imaging Guidance (01/27/2022 10:34 AM CDT)Only the most recent of7 resultswithin the time period is included. Anatomical Region Laterality Modality Abdomen, Ultrasound RST LOS, Ultrasound ARZ LOS, Procedure F LA N/A Ultrasound LOS, Abdominal FLA LOS, Procedural Specimen (Source) Anatomical Collection Method Collection Time Re ceived Time Location / / Volume Laterality 01/27/2022 10:56 AM CDT Impressions 01/27/2022 11:00 AM CDT Ultrasound-guided paracentesis. The procedure was performed under my sup ervision with participation from Dr. Marla Byers. EP Narrative 01/27/2022 11:00 AM CDT EXAM: US PARACENTESIS WITH IMAGING GUIDANCE [...] care team members, residents, and fellows were discussed.. TECHNIQUE: Sterile. 1% lidocaine for loc al anesthesia. Location: Right lower quadrant peritonea l space. Needle size: 5 Fr centesis catheter. Volume aspirated: 4156 mL of straw-color ed fluid. Complication: None. Blood loss: None. Purpose: Therapeutic only. PATIENT INSTRUCTIONS: Patient may be dis missed from the radiology department when dismissal criteria met. POST-PROCEDURE DIAGNOSIS: Ascites. Procedure Note Migue Talavera M.D. - 01/27/2022Form atting of this note might be different [...] care team members, residents, and fellows were discussed.. TECHNIQUE: Sterile. 1% lidocaine for loc al anesthesia. Location: Right lower quadrant peritonea l space. Needle size: 5 Fr centesis catheter. Volume aspirated: 4156 mL of straw-color ed fluid. Complication: None. Blood loss: None. Purpose: Therapeutic only. PATIENT INSTRUCTIONS: Patient may be dis missed from the radiology department when dismissal criteria met. POST-PROCEDURE DIAGNOSIS: Ascites. IMPRESSION: Ultrasound-guided paracentesis. The procedure was performed under my sup ervision with participation from Dr. Marla Byers. EP Darrick DanielSSuma IMG US PROCEDURES (ABNORMAL) PT-Fibrinogen (01/26/2022 6:58 PM CDT) P athologist Signature PT-Fibrinogen, 241 (L) 261 - 595 01/27/2022 DTL P mg/dL 9:36 AM CDT Specimen Anatomical Collection Method Collection Time Receive d Time (Source) Location / / Volume Laterality Blood 01/26/2022 6:58 PM 2 7:12 CDT AM CDT Darrick CheryBSumaSSuma LAB BLOOD NON ADD-ON Performing Organization Address City/State/ZIP Code Phon e Number [facility] - [address] [place], [place] [address] [facility] [place] [address] [facility] [address] (ABNORMAL) DIC/ICF Profile (01/26/2022 6:58 PM CDT) Patholo gist Method Time Signature Prothrombin Time 25.2 (H) 9.4 - 12.5 01/27/2022 DTL (PT), P sec 10:57 AM CDT INR 2.3 0.9 - 1.1 01/27/2022 DTL 10:57 AM CDT Comment: ----ADDITIONAL INFORMATION---- Standard intensity warfarin therapeutic range: 2.0 to 3.0 High intensity warfarin therapeutic rang e: 2.5 to 3.5 Activated Partial Thrombopl 43 (H) 25 - 37 sec 01/27/2022 9:56 AM CDT DTL Time, P Thrombin Time (Bovine), P 27.0 (H) 15.8 - 24.9 sec 01/28/20 10:57 AM CDT DTL Fibrinogen, Clauss, P 132 (L) 200 - 500 mg/dL 01/27/2022 9 :36 AM CDT DTL Comment: ----ADDITIONAL INFORMATION---- This test has been modified from the man ufacturer's instructions. Its performance characteri stics were determined by [facility] in a manner co nsistent with CLIA requirements. This test has not bee n cleared or approved by the U.S. Food and Drug Admin istration. D-DIMER, P 3866 (H) <=500 ng/mL FEU 01/27/2022 9:31 AM CDT DTL Comment: ----ADDITIONAL INFORMATION---- D-dimer values less than or equal to 500 ng/mL fibrinogen equivalent units (FEU) may be used in co njunction with clinical pre-test probability to exclude deep vein thrombosis (DVT) and/or pulmonary emboli sm (PE). Reviewed By Alice Cuadra M.D. 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 ??Suggest clinical correlation. ??See comments . ?COMMENTS: ??Separately tested complete blood count rev eals that the patient is thrombocytopenic. ?Elevated fibrin D-dimer is indicative of i ncreased fibrinolysis, as can occur in association with recent bleeding, surgery or thromb oembolism, hypercoagulable state, liver disease, or intravascular coagu lation and fibrinolysis (DIC/ICF). Suggest clinical correlation. ??Elev ated soluble fibrin monomer complex (SFMC) provides additional evidence f or ongoing intravascular coagulation. ?The prolonged prothrombin time (PT ) and activated partial thromboplastin time (APTT) correct on equal volume mix with normal plasma, indicating coagulation factor deficiencies. ??Testing of individu al coagulation factors for prolonged PT and APTT work-up reveal decreased coa gulation factor II, V, VII, IX, X, XI and XII activities, with normal coagulation f actor VIII activity, suggestive of synthetic hepatic dysfunction, alt rajeev cannot rule out concomitant ongoing intravascular coagulatio n and fibrinolysis (ICF/DIC). Suggest clinical correlation. ?Decreased fibrinogen activity (fibrinogen Clauss) an d total clottable fibrinogen (PT-fibrinogen) are suggestive of hypofibrinogene dread, likely secondary to the patient's underlying synthetic hepatic dysf unction or ongoing intravascular coagulation and fibrinolysis. ??Sugges t clinical correlation. ?The mildly prolonged thrombin time (TT) and normal rep lace time are suggestive of trace heparin/low molecular weight hepar in effects or could be secondary to the patient's underlying hypofibrinogenem ia. ??Suggest clinical correlation. Interpreted by Ana Cuadra M.D./endy Specimen Anatomical Collection Method Collection Time Receive d Time (Source) Location / / Volume Laterality Blood (Blood, 01/26/2022 6:58 PM 01/28/20 7:12 Venous) CDT AM CDT Narrative [facility] - 01/27/2022 5:26 PM CDT Specimen Information: Specimen ID: [id number] Specimen Type: Blood Specimen Collection Start Date: 01/27/20 ??6:58 PM Specimen Received Date: 01/27/2022 ??7:1 2 AM Specimen ID: [id number] Specimen Type: Blood Specimen Collection Start Date: 01/27/20 ??6:58 PM Specimen Received Date: 01/27/2022 ??7:1 2 AM Specimen ID: [id number] Specimen Type: Blood Specimen Collection Start Date: 01/27/20 ??6:58 PM Specimen Received Date: 01/27/2022 ??7:1 2 AM Specimen ID: [id number] Specimen Type: Blood Specimen Collection Start Date: 01/27/20 ??6:58 PM Specimen Received Date: 01/27/2022 ??7:1 2 AM Specimen ID: [id number] Specimen Type: Blood Specimen Collection Start Date: 01/27/20 ??6:58 PM Specimen Received Date: 01/27/2022 ??7:1 2 AM Darrick Santillan LAB BLOOD NON ADD-ON Performing Organization Address City/[facility] Phon e Number [facility] - [address] (ABNORMAL) Coag Factor X Assay, P (01/26/2022 6:58 PM CDT) athologist Signature Coag Factor X 29 (L) 70 - 150 % 01/27/2022 [facility] Assay, P 12:19 PM CDT Comment: ----ADDITIONAL INFORMATION---- This test has been modified from the man flakitar's instructions. Its performance characteri stics were determined by [facility] in a manner co nsistent with CLIA requirements. This test has not bee n cleared or approved by the U.S. Food and Drug Admin istration. Specimen Anatomical Collection Method Collection Time Receive d Time (Source) Location / / Volume Laterality Blood 01/26/2022 6:58 PM 2 CDT 11:30 AM CDT Darrick Santillan LAB BLOOD ADD-ON Performing Organization Address City/[facility] Phon e Number [facility] - [address] [place] [address] Reptilase Time, Plasma (01/26/2022 6:58 PM CDT) athologist Signature Reptilase Time, 21.0 14.0 - 23.9 01/27/2022 DT P sec 11:03 AM CDT Comment: ----ADDITIONAL INFORMATION---- This test has been modified from the man ufacturer's instructions. Its performance characteri stics were determined by [facility] in a manner co nsistent with CLIA requirements. This test has not bee n cleared or approved by the U.S. Food and Drug Admin istration. Specimen Anatomical Collection Method Collection Time Receive d Time (Source) Location / / Volume Laterality Blood 01/26/2022 6:58 PM 2 7:12 CDT AM CDT Darrick DanielSSuma LAB BLOOD ADD-ON Performing Organization Address City/[facility] Phon e Number [facility] - [address] (ABNORMAL) Soluble Fibrin Monomer (01/26/2022 6:58 PM CDT) athologist Signature Soluble Fibrin 165 (H) <=8 mcg/mL 01/27/2022 DT Monomer 10:57 AM CDT Comment: ----ADDITIONAL INFORMATION---- This test was developed and its performa nce characteristics determined by [facility] in a manner co nsistent with CLIA requirements. This test has not bee n cleared or approved by the U.S. Food and Drug Admin istration. Specimen Anatomical Collection Method Collection Time Receive d Time (Source) Location / / Volume Laterality Blood 01/26/2022 6:58 PM 2 7:12 CDT AM CDT Darrick DanielSSuma LAB BLOOD NON ADD-ON Performing Organization Address City/[facility]/ZIP Code Phon e Number [facility] - [address] APTT Mix 1:1 (01/26/2022 6:58 PM CDT) P athologist Signature APTT Mix 1:1 28 25 - 37 sec 01/27/2022 DTL 11:04 AM CDT Comment: ----ADDITIONAL INFORMATION---- This test has been modified from the man cecilacturer's instructions. Its performance characteri stics were determined by [facility] in a manner co nsistent with CLIA requirements. This test has not bee n cleared or approved by the U.S. Food and Drug Admin istration. Specimen Anatomical Collection Method Collection Time Receive d Time (Source) Location / / Volume Laterality Blood 01/26/2022 6:58 PM 2 7:12 CDT AM CDT Darrick Santoyo.S. LAB BLOOD ADD-ON Performing Organization Address City/[facility] Phon e Number [facility] - [id number] [place] [address] PT Mix 1:1 (01/26/2022 6:58 PM CDT) athologist Signature PT Mix 1:1 11.8 9.4 - 12.5 01/27/2022 DT sec 11:04 AM CDT Comment: ----ADDITIONAL INFORMATION---- This test has been modified from the bertha cecilacturer's instructions. Its performance characteri stics were determined by [facility] in a manner co nsistent with CLIA requirements. This test has not bee n cleared or approved by the U.S. Food and Drug Admin istration. Specimen Anatomical Collection Method Collection Time Receive d Time (Source) Location / / Volume Laterality Blood 01/26/2022 6:58 PM 2 7:12 CDT AM CDT Darrick Santoyo.S. LAB BLOOD ADD-ON Performing Organization Address City/[facility] Phon e Number [facility] - [address] Dilute Russells Viper Venom Time (DRVVT) (01/26/2022 6:58 PM CDT) athologist Signature DRVVT Screen 0.85 <1.20 ratio 01/27/2022 DTL Ratio 11:04 AM CDT Specimen Anatomical Collection Method Collection Time Receive d Time (Source) Location / / Volume Laterality Blood 01/26/2022 6:58 PM 2 7:12 CDT AM CDT Darrick Santillan LAB BLOOD ADD-ON Performing Organization Address [facility] Phon e Number [facility] - [address] [place] [address] [address] [facility] [place], [place] [id number] [place] [address] (ABNORMAL) Coagulation Factor XII Activity Assay (01/26/2022 6:58 PM CDT) P athologist Signature Coag Factor XII 32 (L) 55 - 180 % 01/27/2022 DTL Assay, P 12:47 PM CDT Comment: ----ADDITIONAL INFORMATION---- This test has been modified from the bertha cecilactemeliar's instructions. Its performance characteri stics were determined by [facility] in a manner co nsistent with CLIA requirements. This test has not bee n cleared or approved by the U.S. Food and Drug Admin istration. Specimen Anatomical Collection Method Collection Time Receive d Time (Source) Location / / Volume Laterality Blood 01/26/2022 6:58 PM 2 CDT 11:30 AM CDT Darrick Santillan LAB BLOOD ADD-ON Performing Organization Address City/[facility] Phon e Number [facility] - [address] [place] [address] [facility] [place] [address] (ABNORMAL) Coagulation Factor XI Activity Assay (01/26/2022 6:58 PM CDT) P athologist Signature Coag Factor XI 18 (L) 55 - 150 % 01/27/2022 DTL Assay, P 12:47 PM CDT Comment: ----ADDITIONAL INFORMATION---- This test has been modified from the bertha ufacturer's instructions. Its performance characteri stics were determined by [facility] in a manner co nsistent with CLIA requirements. This test has not bee n cleared or approved by the U.S. Food and Drug Admin istration. Specimen Anatomical Collection Method Collection Time Receive d Time (Source) Location / / Volume Laterality Blood 01/26/2022 6:58 PM 2 CDT 11:30 AM CDT Darrick DanielSSuma LAB BLOOD ADD-ON Performing Organization Address [facility] [facility] Phon e Number [facility] - [address] [place], [place] [address] [facility] [place] [address] [facility] 200 [facility] (ABNORMAL) Coagulation Factor IX Activity Assay (01/26/2022 6:58 PM CDT) athologist Signature Coag Factor IX 29 (L) 65 - 140 % 01/27/2022 DTL Assay, P 12:47 PM CDT Comment: ----ADDITIONAL INFORMATION---- This test has been modified from the [employer] Success[employer] Teensacturer's instructions. Its performance characteri stics were determined by [facility] in a manner co nsistent with CLIA requirements. This test has not bee n cleared or approved by the U.S. Food and Drug Admin istration. Specimen Anatomical Collection Method Collection Time Receive d Time (Source) Location / / Volume Laterality Blood 01/26/2022 6:58 PM 2 CDT 11:30 AM CDT Darrick DanielSSuma LAB BLOOD ADD-ON Performing Organization Address City/[facility]/ZIP Code Phon e Number [facility] - [address] [place], [place] [address] [facility] [place] [address] [facility] [address] [facility] Coagulation Factor VIII Activity Assay (01/26/2022 6:58 PM CDT) P athologist Signature Coag Factor 93 55 - 200 % 01/27/2022 DT VIII Activity 12:19 PM CDT Assay, P Comment: ----ADDITIONAL INFORMATION---- This test has been modified from the [employer] [place] Bank[employer]urer's instructions. Its performance characteri stics were determined by [facility] in a manner co nsistent with CLIA requirements. This test has not bee n cleared or approved by the U.S. Food and Drug Admin istration. Specimen Anatomical Collection Method Collection Time Receive d Time (Source) Location / / Volume Laterality Blood 01/26/2022 6:58 PM 2 CDT 11:30 AM CDT Darrick DanielS. LAB BLOOD ADD-ON Performing Organization Address [facility] Phon e Number [facility] - [address] [place] [address] [facility] [place], [place] [address] [place] [address] (ABNORMAL) Coagulation Factor VII Activity Assay (01/26/2022 6:58 PM CDT) athologist Signature Coag Factor VII 13 (L) 65 - 180 % 01/27/2022 DTL Assay, P 12:19 PM CDT Comment: ----ADDITIONAL INFORMATION---- This test has been modified from the bertha ufacturer's instructions. Its performance characteri stics were determined by [facility] in a manner co nsistent with CLIA requirements. This test has not bee n cleared or approved by the U.S. Food and Drug Admin istration. Specimen Anatomical Collection Method Collection Time Receive d Time (Source) Location / / Volume Laterality Blood 01/26/2022 6:58 PM 2 CDT 11:30 AM CDT Darrick DanielS. LAB BLOOD ADD-ON Performing Organization Address City/[facility] Phon e Number [facility] - [address] [place] [address] 05 [facility] [place] [address] [facility] (ABNORMAL) Coagulation Factor V Activity Assay (01/26/2022 6:58 PM CDT) athologist Signature Coag Factor V 18 (L) 70 - 165 % 01/27/2022 DTL Assay, P 12:19 PM CDT Comment: ----ADDITIONAL INFORMATION---- This test has been modified from the bertha ufacturer's instructions. Its performance characteri stics were determined by [facility] in a manner co nsistent with CLIA requirements. This test has not bee n cleared or approved by the U.S. Food and Drug Admin istration. Specimen Anatomical Collection Method Collection Time Receive d Time (Source) Location / / Volume Laterality Blood 01/26/2022 6:58 PM 2 CDT 11:30 AM CDT Darrick DanielSSuma LAB BLOOD ADD-ON Performing Organization Address [facility] Phon e Number [facility] - [address] [address] [place] [address] [facility] 200 [facility] (ABNORMAL) Coagulation Factor II Activity Assay (01/26/2022 6:58 PM CDT) athologist Signature Coag Factor II 28 (L) 75 - 145 % 01/27/2022 DTL Assay, P 12:19 PM CDT Comment: ----ADDITIONAL INFORMATION---- This test has been modified from the man cecilacturer's instructions. Its performance characteri stics were determined by [facility] in a manner co nsistent with CLIA requirements. This test has not bee n cleared or approved by the U.S. Food and Drug Admin istration. Specimen Anatomical Collection Method Collection Time Receive d Time (Source) Location / / Volume Laterality Blood 01/26/2022 6:58 PM 2 CDT 11:30 AM CDT Darrick DanielSSuma LAB BLOOD ADD-ON Performing Organization Address City/[facility] Phon e Number [facility] - [address] [place] [address] 05 [place] [address] [facility] (ABNORMAL) Copper (01/26/2022 6:57 PM CDT) athologist Signature Copper, S 58 (L) 77 - 206 01/27/2022 SDSC mcg/dL 11:02 AM CDT Comment: ----ADDITIONAL INFORMATION---- This test was developed and its performa nce characteristics determined by [facility] in a manner consistent with CLIA requirements. This test has not been cleared or approved by the U.S. Meggan d and Drug Administration. Specimen Anatomical Collection Method Collection Time Receive d Time (Source) Location / / Volume Laterality Blood (Blood, 01/26/2022 6:57 PM 01/28/20 22 7:45 Venous) CDT AM CDT Darrick Santillan LAB BLOOD NON ADD-ON Performing Organization Address [facility] Phon e Number [place] [phone] [place] [address] TA Mueller (01/26/2022 6:57 PM CDT) P athologist Signature Zinc, S 66 60 - 106 01/27/2022 [facility] mcg/dL 11:02 AM CDT Comment: ----ADDITIONAL INFORMATION---- This test was developed and its performa nce characteristics determined by [facility] in a manner consistent with CLIA requirements. This test has not been cleared or approved by the U.S. Meggan d and Drug Administration. Specimen Anatomical Collection Method Collection Time Receive d Time (Source) Location / / Volume Laterality Blood (Blood, 01/26/2022 6:57 PM 01/28/20 22 7:45 Venous) CDT AM CDT Darrick Santillan LAB BLOOD NON ADD-ON Performing Organization Address City/[facility] Phon e Number [address] [place] [address] [place] LDA ANE ENDOTRACHEAL AIRWAY (01/26/2022 3:51 PM CDT) Narrative Gildardo Hickey APRN, CAMERA REPAIR TECHNICIAN, DNAP - 3:51 PM CDT Gildardo Hickey APRN, CAMERA REPAIR TECHNICIAN, DNAP ? 01/26/2022 ??4:08 PM Airway Date/Time: 01/26/2022 3:51 PM Performed by: Gildardo Hickey APRN, CR NA, DNAP Authorized by: Gildardo Hickey APRN, C RNA, DNAP Patient location during procedure: OR / Procedure Area PROCEDURE DETAILS: Mask difficulty assessment: not attempte d Final airway type: video laryngoscope Laryngeal Manipulation: no ?? Final best view of glottic structures - Cormack/Lehane Score: grade 1 ETT location: oral VL device: glide scope Adult tube size: 7 Adult ETT distance at teeth/gum: 20 Oral tube type: standard ETT Cuffed: yes Number of attempt to successful placemen t: 1 Airway confirmation: bilateral breath so unds, positive ETCO2 and bilateral chest rise Other previous techniques attempted: non e PRE PROCEDURE DETAILS: Pre evaluation for airway management: pr ocedure Urgency: elective Preop assessment of probable difficulty: no difficulty anticipated Preoxygenation: bag valve mask SEDATION / ANESTHESIA Anesthesia method: anesthesia POST PROCEDURE DETAILS: ? Procedure outcome: successful ?? Airway event: no complications Gildardo Hickey PUG MILL OPERATOR HELPER, CAMERA REPAIR TECHNICIAN, DNAP ANESTHESIA ORDERABLES Upper GI endoscopy-Gastroenterology Image Exam (01/26/2022 3:20 PM CDT)Only the most recent of2 resultswithin the time period is included. Specimen (Source) Anatomical Location Collection Method / Collectio n Time Received Time / Laterality Volume Narrative [facility] - 01/26/2022 10:57 PM CDT This order has been created and auto-finalized to support the import of images acquired without order. The clini ada documentation to support these images can be found on the encounter angelina t produced images. Provider Not In System IMG NON RAD IMAGING PROCEDUR ES Performing Organization Address City/State/ZIP Code Phon e Number IIAL IIAL NA Upper GI Endoscopy (01/26/2022 3:18 PM CDT) Specimen (Source) Anatomical Collection Method Collection Time Re ceived Time Location / / Volume Laterality 01/26/2022 3:18 PM CDT Impressions [facility] - 01/26/2022 10:50 PM CDT Post-op Diagnoses: ? - Large (> 5 mm) esophageal varic es with no bleeding and no stigmata of ? recent bleeding. Banded x 6. ? - Portal hypertensive gastropathy (non-bleeding). ? - No specimens collected. Narrative [facility] - 01/26/2022 10:50 PM CDT Otto 6 GI GI Patient Name: Catia Carias Date of : 1990 Age: 31 Gender: Female Procedure Date: 01/26/2022 Procedure: ? Upper GI endoscopy Providers: ? Andreas Price MD, Eulogio Donald MD ? (Fe llow) Referring Provider: ?Huang Diamond Pre-op Diagnoses: ?Esophageal varices, Follow-up of esophageal varices, ? For therapy of esophageal varices Recommendation: ? - Return patient to hospital n[facility] for ongoing care. ? - Diet per housestaff. No specifi c restrictions. ? - Please repeat upper endoscopy ( EGD) in 4-6 weeks for repeat endoscopic ? band ligation to eradicate the re sidual varices. Findings: ? Four columns of large (> 5 mm) va rices with no bleeding and no stigmata ? of recent bleeding were found in the lower third of the esophagus, 30 to ? 36 cm from the incisors. Red marcello signs were present. Six bands were ? successfully placed with incomple te eradication of varices. There was no ? bleeding at the end of the proced ure. ? Diffuse portal hypertensive gastr opathy was found in the cardia, in the ? gastric fundus and in the gastric body. No bleeding. ? No gastric varices. ? The examined duodenum was normal. Procedural Details: ? The patient was seen, evaluated, history reviewed, airway and heart-lung ? exams were performed by licensed provider and were satisfactory for ? planned level of sedation care. T he risks, benefits and alternatives for ? the procedure and sedation were d iscussed and informed consent was ? obtained. A procedural pause was conducted in the presence of assisting ? personnel to verify the correct p atient identity and procedure to be ? performed. Throughout the procedu re, the patient's blood pressure, ? pulse, and oxygen saturations wer e monitored continuously. The ? Gastroscope was introduced under direct vision through the mouth, and ? advanced to the second part of du odenum. The upper GI endoscopy was ? accomplished without difficulty. The patient tolerated the procedure ? well. Estimated Blood Loss: ?Estimated blo od loss: none. Complications: ? No immedia te complications. 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 pro cedure, including non-judd portions. Andreas Price MD 01/26/2022 10:50:15 PM This report has been signed electronical ly. Number of Addenda: 0 Huang Diamond M.D. GI PROCEDURE ORDERABLES Performing Organization Address City/[facility]/ZIP Code Phon [facility] Number [facility] NA Transfuse Fresh Frozen Plasma :INR >2: Invasive proc scheduled; 180 mL/hr (01/26/2022 11:20 AM CDT)Only the most recent of2 resultswithin the time period is included. Darrick Santillan BLOOD TRANSFUSION ORDERABLES (ABNORMAL) Hemoglobin (01/26/2022 11:16 AM CDT)Only the most recent of11 results within the time period is included. P athologist Signature Hemoglobin 7.4 (L) 11.6 - 15.0 01/26/2022 STMA g/dL 11:25 AM CDT Specimen Anatomical Collection Method Collection Time Receive d Time (Source) Location / / Volume Laterality Blood (Blood, 01/26/2022 11:16 01/26/2022 Venous) AM CDT 11:22 AM CDT Gerda Hull M.D., M.S. LAB BLOOD ADD-ON Performing Organization Address City/State/ZIP Code Phon e Number [facility] - [address] [place], [place] [address] [facility] [place] [address] [facility] [address] Transfuse Emergency Released Red Blood Cells (Uncrossmatched) (01/26/2022 9:59 AM CDT) Darrick Santillan BLOOD TRANSFUSION ORDERABLES ECG 12 Lead (01/26/2022 5:05 AM CDT)Only the most recent of4 resultswithin the time period is included. P athologist Signature Ventricular Rate 96 BPM MUSE ECG/Min ME Interval 166 ms MUSE QRSD Interval 88 ms MUSE QT Interval 364 ms MUSE QTC Interval 460 ms MUSE P [place] 56 degrees MUSE R [place] 50 degrees MUSE T Wave [place] 32 degrees MUSE Specimen Anatomical Collection Method Collection Time Receive d Time (Source) Location / / Volume Laterality 01/26/2022 5:05 AM 5:16 CDT AM CDT Impressions MUSE - 01/26/2022 5:16 AM CDT Normal sinus rhythm Nonspecific T wave abnormality When compared with ECG of 14-JAN-2022 11 :11, No significant change was found Reviewed by STERLING Romero Narrative This result has an attachment that is no t available. Procedure Note Jony Fox Jr., M.D. - 01/26/2022For matting of this note might be different from the original. IMPRESSION: Normal sinus rhythm Nonspecific T wave abnormality When compared with ECG of 14-JAN-2022 11 :11, No significant change was found Reviewed by STERLING Romero Yue Silver M.D. ECG ORDERABLES Performing Organization Address City/State/ZIP Code Phon e Number MUSE MUSE NA (ABNORMAL) Prothrombin Time (PT) (01/26/2022 4:53 AM CDT)Only the most recent of 11 resultswithin the time period is included. Patholo gist Method Time Signature Prothrombin 28.3 (H) 9.4 - 12.5 01/26/2022 DTL Time, P sec 6:31 AM CDT INR 2.5 0.9 - 1.1 01/26/2022 DTL 6:31 AM CDT Comment: ----ADDITIONAL INFORMATION---- Standard intensity warfarin therapeutic range: 2.0 to 3.0 ?? High intensity warfarin therapeutic rang e: 2.5 to 3.5 Specimen Anatomical Collection Method Collection Time Receive d Time (Source) Location / / Volume Laterality Blood (Blood, 01/26/2022 4:53 AM 01/27/20 22 6:05 Venous) CDT AM CDT Yue Silver M.D. LAB BLOOD ADD-ON Performing Organization Address City/[facility] Code Phon e Number [facility] - [address] [place], [place] [address] [facility] [place] [address] [facility] [address] [facility] Type and Screen (with reflex Antibody ID) (01/26/2022 4:48 AM CDT)Only the most recent of5 resultswithin the time period is included. Patholo gist Method Time Signature ABORh B Pos Not 01/26/2022 STRM applicable 9:18 AM CDT Antibody Negative Negative 01/26/2022 STRM Screen 9:34 AM CDT Type & Screen 01/29/2022 01/26/2022 STRM Expiration 23:59 9:18 AM CDT Testing Jcarlos DEFAULT 01/26/2022 STRM Location 8:55 AM CDT Specimen Anatomical Collection Method Collection Time Receive d Time (Source) Location / / Volume Laterality Blood (Blood, 01/26/2022 4:48 AM 01/27/20 22 8:55 Venous) CDT AM CDT Darrick Santillan LAB BLOOD BANK TEST ORDERABL ES Performing Organization Address City/[facility] Phon e Number [facility] - [address] [place], [place] [address] [facility] [place] [address] [facility] [address] [facility] HIV-1/-2 Ag and Ab Screen, Plasma (01/25/2022 3:36 PM CDT) P athologist Signature HIV-1/-2 Ag Negative Negative 01/26/2022 [facility] and Ab Screen, 11:53 AM CDT P Comment: Negative result does not rule out HIV in fection. If exposure to HIV infection occurred <14 d ays ago, contact the laboratory to request additi on of HIV-1 RNA detection / quantification test (HIV QN). Specimen Anatomical Collection Method Collection Time Receive d Time (Source) Location / / Volume Laterality Blood (Blood, 01/25/2022 3:36 PM 01/27/20 22 Venous) CDT 10:34 AM CDT Darrick Santillan LAB MICROBIOLOGY - BLOOD ORD ERABLES Performing Organization Address City/[facility] Phon e Number [facility] [address] [place], [place] [address] [facility] [place] [address] [facility] [address] [place] Transfuse Red Blood Cells : (01/25/2022 1:08 PM CDT)Only the most recent of7 resultswithin the time period is included. Darrick Santillan BLOOD TRANSFUSION ORDERABLES (ABNORMAL) AST (Aspartate Aminotransferase) (01/25/2022 9:56 AM CDT) Patholo gist Method Time Signature Aspartate 62 (H) 8 - 43 01/25/2022 DTL Aminotransferase U/L 10:32 AM CDT (AST), P Specimen Anatomical Collection Method Collection Time Receive d Time (Source) Location / / Volume Laterality Blood 01/25/2022 9:56 AM 9:56 CDT AM CDT Darrick Santillan LAB BLOOD ADD-ON Performing Organization Address City/[facility] Phon e Number [facility] - [address] [place], [place] [address] [facility] [place] [address] [facility] [address] [facility] (ABNORMAL) SPSMA Result (01/25/2022 5:35 AM CDT)Only the most recent of5 results within the time period is included. Analysis Performed At Patho logist Time Signature Neutrophilic Segs 74 50 - 75 % 01/25/2022 DHPM and Bands 7:03 AM CDT Lymphocytes 17 (L) 18 - 42 % 01/25/2022 DHPM 7:03 AM CDT Monocytes 3 2 - 11 % 01/25/2022 DHPM 7:03 AM CDT Eosinophils 5 (H) 1 - 3 % 01/25/2022 DHPM 7:03 AM CDT Basophils 1 0 - 2 % 01/25/2022 DHPM 7:03 AM CDT Manual Absolute 2.96 1.56 - 01/25/2022 [facility] Neutrophil Count 6.45 7:03 AM CDT x10(9)/L Comment: ----ADDITIONAL INFORMATION---- The manual absolute neutrophil count is derived from a manual differential count and therefore is not exactly comparable to the automated absolute armida trophil count. Interpretation SeeComment 01/25/2022 7:03 AM CDT D HPM Comment: No morphologic features of hemolysis are seen. No schistocytes are seen. No platelet clumping. Reviewed by: Tech 01/25/2022 7:03 AM CDT [facility] Specimen Anatomical Collection Method Collection Time Receive d Time (Source) Location / / Volume Laterality Blood (Blood, 01/25/2022 5:35 AM 01/26/20 5:57 Venous) CDT AM CDT Darrick CheryB.S. LAB BLOOD ADD-ON Performing Organization Address [facility] Phon e Number [facility] - [address] [place] [address] 05 [place] [address] Laboratories-[address] LD (Lactate Dehydrogenase) (01/25/2022 5:35 AM CDT)Only the most recent of3 resultswithin the time period is included. [facility] LD 197 122 - 222 01/25/2022 DTL U/L 6:35 AM CDT Specimen Anatomical Collection Method Collection Time Receive d Time (Source) Location / / Volume Laterality Blood (Blood, 01/25/2022 5:35 AM 01/26/20 6:18 Venous) CDT AM CDT Darrick CheryB.S. LAB BLOOD NON ADD-ON Performing Organization Address City/[facility] Phon e Number [facility] - [address] [place], [place] [address] [facility] [place] [address] (ABNORMAL) Haptoglobin (01/25/2022 5:35 AM CDT)Only the most recent of3 results within the time period is included. [facility] Haptoglobin, S <14 (L) 30 - 200 01/26/2022 SD[facility] mg/dL 10:51 AM CDT Specimen Anatomical Collection Method Collection Time Receive d Time (Source) Location / / Volume Laterality Blood 01/25/2022 5:35 AM 6:58 CDT AM CDT Darrick Santillan LAB BLOOD ADD-ON Performing Organization Address [facility] Phon e Number [facility] [address] [place], [place] [address] [place] [address] [place] [id number] [place] (ABNORMAL) Reticulocytes (01/25/2022 5:30 AM CDT)Only the most recent of2 resultswithin the time period is included. [facility] [employer] Method Time Signature Reticulocytes, B 6.67 (H) 0.60 - 01/25/2022 DTL 2.71 % 9:18 AM CDT Absolute 114.1 (H) 30.4 - 01/25/2022 DTL Reticulocyte 110.9 9:18 AM CDT x10(9)/L Specimen Anatomical Collection Method Collection Time Receive d Time (Source) Location / / Volume Laterality Blood (Blood, 01/25/2022 5:30 AM 01/26/20 9:03 Venous) CDT AM CDT Darrick Santillan LAB BLOOD ADD-ON Performing Organization Address City/[facility] Phon e Number [address] [address] [place] [address] [facility] [address] [facility] Direct Antiglobulin Test (Poly) (01/25/2022 5:30 AM CDT)Only the most recent of2 resultswithin the time period is included. [facility] [employer] Method Time Signature Direct Negative Negative 01/25/2022 STRM Antiglobulin 1:15 PM CDT Test, Polyspecific Specimen Anatomical Collection Method Collection Time Receive d Time (Source) Location / / Volume Laterality Blood (Blood, 01/25/2022 5:30 AM 01/26/20 Venous) CDT 11:46 AM CDT Darrick Santillan LAB BLOOD BANK TEST ORDERABL ES Performing Organization Address [facility] Phon e Number [facility] - [address] [place], [place] [address] [facility] [place] [address] Magnesium (01/25/2022 5:30 AM CDT)Only the most recent of9 resultswithin the time period is included. P athologist Signature Magnesium, S 1.9 1.7 - 2.3 01/25/2022 DTL mg/dL 5:21 PM CDT Specimen Anatomical Collection Method Collection Time Receive d Time (Source) Location / / Volume Laterality Blood (Blood, 01/25/2022 5:30 AM 01/26/20 5:06 Venous) CDT PM CDT Darrick Santillan LAB BLOOD ADD-ON Performing Organization Address [facility] Phon e Number [facility] - [address] [place] [address] 05 [place] [address] Osmolality, Urine (01/24/2022 3:32 PM CDT)Only the most recent of4 resultswithin the time period is included. P athologist Signature Osmolality, U 434 150 - 1150 01/24/2022 DTL mOsm/kg 4:29 PM CDT Specimen Anatomical Collection Method Collection Time Receive d Time (Source) Location / / Volume Laterality Urine 01/24/2022 3:32 PM 2 3:59 CDT PM CDT Yue Silver M.D. LAB URINE ORDERABLES Performing Organization Address [facility] Phon e Number [facility] - [address] [place], [place] [address] [facility] [address] (ABNORMAL) Dipstick, Urine (01/24/2022 3:32 PM CDT)Only the most recent of6 resultswithin the time period is included. Patholo gist Method Time Signature Hemoglobin, Small (A) Negative 01/24/2022 DTL QL, U 4:10 PM CDT Leukocyte Moderate (A) Negative 01/24/2022 DTL Esterase, U 4:10 PM CDT Nitrite, U Negative Negative 01/24/2022 DTL 4:10 PM CDT Ketone, U Negative Negative 01/24/2022 DTL mg/dL 4:10 PM CDT Glucose, U Negative Negative 01/24/2022 DTL mg/dL 4:10 PM CDT Specimen Anatomical Collection Method Collection Time Receive d Time (Source) Location / / Volume Laterality Urine 01/24/2022 3:32 PM 2 3:59 CDT PM CDT Yue Silver M.D. LAB URINE ORDERABLES Performing Organization Address City/[facility]/ZIP [facility] Phon e Number [facility] - [address] [place] [address] pH, [place], Urine (01/24/2022 3:32 PM CDT)Only the most recent of4 resultswithin the time period is included. athologist Signature pH, Random, U 6.0 4.5 - 8.0 01/24/2022 DTL 4:29 PM CDT Specimen Anatomical Collection Method Collection Time Receive d Time (Source) Location / / Volume Laterality Urine 01/24/2022 3:32 PM 2 3:59 CDT PM CDT Yue Silver M.D. LAB URINE ORDERABLES Performing Organization Address City/State/ZIP Code Phon e Number [facility] - [address] [place], [place] [address] [place] [address] Sodium, Random, Urine (01/24/2022 3:32 PM CDT) athologist Signature Sodium, Random, <10 mmol/L 01/24/2022 DTL U 4:50 PM CDT Comment: ----REFERENCE VALUE---- Random urine sodium may be interpreted i n conjunction with serum sodium, using both values to calculate fractional excretion of sodium. Specimen Anatomical Collection Method Collection Time Receive d Time (Source) Location / / Volume Laterality Urine (Urine, 01/24/2022 3:32 PM 01/25/20 22 3:59 Midstream) CDT PM CDT Yue Silver M.D. LAB URINE ORDERABLES Performing Organization Address City/[facility] Phon e Number [facility] - [address] [place], [place] [address] [place] [address] [place] [address] Laboratories-[address] (ABNORMAL) Microscopic Manual (01/24/2022 3:32 PM CDT)Only the most recent of4 resultswithin the time period is included. athologist Signature Microscopy Abnormal 01/24/2022 DTL 5:10 PM CDT RBC <3 <3 /hpf 01/24/2022 DTL 5:10 PM CDT WBC 11-20 (A) /hpf 01/24/2022 DTL 5:10 PM CDT Comment: ----REFERENCE VALUE---- 1-3 ??(Males) 1-10 (Females) Casts, Hyaline 4-10 /lpf 01/24/2022 5:10 PM CDT DT L Transitional Epithelial 4-10 (A) /hpf 01/24/2022 5:10 PM CDT DTL Cells Squamous Epithelial Cells, 1-3 /hpf 01/24/2022 5: 10 PM CDT DTL U Crystals Calcium Oxalate 01/24/2022 5:10 PM CDT D TL crystals present Specimen Anatomical Collection Method Collection Time Receive d Time (Source) Location / / Volume Laterality Urine 01/24/2022 3:32 PM 2 3:59 CDT PM CDT Yue Silver M.D. LAB URINE ORDERABLES Performing Organization Address City/[facility] Code Phon e Number [facility] - [address] [place], [place] [address] [facility] [place] [address] [address] Creatinine, Random, Urine (01/24/2022 3:32 PM CDT) athologist Signature Creatinine, 60 16 - 326 01/24/2022 DTL Random, U mg/dL 4:50 PM CDT Specimen Anatomical Collection Method Collection Time Receive d Time (Source) Location / / Volume Laterality Urine (Urine, 01/24/2022 3:32 PM 01/25/20 22 3:59 Midstream) CDT PM CDT Yue Silver M.D. LAB URINE ORDERABLES Performing Organization Address City/[facility] Phon e Number [facility] - [address] (ABNORMAL) Urinalysis with Microscopic: Urine, Midstream (01/24/2022 3:32 PM CDT)Only the most recent of6 resultswithin the time period is included. Patholo gist Method Time Signature Source Urine, Urine, 01/24/2022 DTL Midstream 3:59 PM CDT Color, U Yellow 01/24/2022 DTL 3:59 PM CDT Clarity, U Cloudy (A) 01/24/2022 DTL 3:59 PM CDT Protein, U 18 <26 mg/dL 01/24/2022 DTL 4:50 PM CDT Protein/Osmol 0.41 <0.42 01/24/2022 DTL ality ratio 4:50 PM CDT Predicted 24 301 mg/24 h 01/24/2022 DTL Hr Protein 4:50 PM CDT Predicted 74-1218 mg/24 h 01/24/2022 DTL Range 4:50 PM CDT Specimen Anatomical Collection Method Collection Time Receive d Time (Source) Location / / Volume Laterality Urine (Urine, 01/24/2022 3:32 PM 01/25/20 22 3:59 Midstream) CDT PM CDT Yue Silver M.D. LAB URINE ORDERABLES Performing Organization Address City/[facility] Phon e Number [facility] - [address] (ABNORMAL) Bilirubin, Total (01/24/2022 1:35 PM CDT)Only the most recent of2 resultswithin the time period is included. P athologist Signature Bilirubin, 11.9 (H) <=1.2 01/24/2022 DTL Total, P mg/dL 2:33 PM CDT Specimen Anatomical Collection Method Collection Time Receive d Time (Source) Location / / Volume Laterality Blood 01/24/2022 1:35 PM 1:35 CDT PM CDT Darrick DanielSSuma LAB BLOOD ADD-ON Performing Organization Address City/[facility]/ZIP [facility] Phon e Number [facility] - [address] (ABNORMAL) Bilirubin, Direct (01/24/2022 5:17 AM CDT) athologist Signature Bilirubin, 5.1 (H) 0.0 - 0.3 01/24/2022 DTL Direct, S mg/dL 2:40 PM CDT Specimen Anatomical Collection Method Collection Time Receive d Time (Source) Location / / Volume Laterality Blood (Blood, 01/24/2022 5:17 AM 01/25/20 1:52 Venous) CDT PM CDT Darrick DanielSSuma LAB BLOOD ADD-ON Performing Organization Address City/[facility]/ZIP Code Phon e Number [facility] - [address] [place] [phone] Upper GI Endoscopy (01/23/2022 3:35 PM CDT) Specimen (Source) Anatomical Collection Method Collection Time Re ceived Time Location / / Volume Laterality 01/23/2022 3:35 PM CDT Impressions [facility] - 01/23/2022 4:08 PM CDT Post-op Diagnoses: ? - Small and large (> 5 mm) mid-di stal esophageal varices with few red ? signs. Band ligation deferred due to large amount of retained food ? material. ? - A large amount of food (residue ) in the stomach, precluding an optimal ? examination. ? - Portal hypertensive gastropathy , mild. ? - Retained food in the antrum pre cluded duodenal examination. ? - No specimens collected. Narrative [facility] - 01/23/2022 4:08 PM CDT Otto 6 GI GI Patient Name: Catia Carias Date of : 1990 Age: 31 Gender: Female Procedure Date: 01/23/2022 Procedure: ? Upper GI endoscopy Providers: ? Jesús Campa MD, Tanmay Parker MD ? (Fe llow) Referring Provider: ?Sree michael Pre-op Diagnoses: ?Cirrhosis, rule out esophageal varices Recommendation: ? - Return patient to hospital [place] for ongoing care. ? - Liquid diet over the weekend fo llowed by repeat upper endoscopy for ? completion of examination and ban d ligation of varices. Findings: ? Small and lrge (> 5 mm) varices w ith few red signs were found in the ? middle third of the esophagus and in the lower third of the esophagus. ? Band ligation was deferred due to retained gastric contents. ? A large amount of food (residue) was found in the entire examined ? stomach, precluding an optimal ex amination. ? Mild portal hypertensive gastropa thy was found in the entire examined ? stomach. No obvious fundal varice s. ? Retained food in the antrum precl uded duodenal examination. Procedural Details: ? The patient was seen, evaluated, history reviewed, airway and heart-lung ? exams were performed by licensed provider and were satisfactory for ? planned level of sedation care. ? The risks, benefits and alternati ves for the procedure and sedation were ? discussed and informed consent wa s obtained. A procedural pause was ? conducted in the presence of assi sting personnel to verify the correct ? patient identity and procedure to be performed. Throughout the ? procedure, the patient's blood pr essure, pulse, and oxygen saturations ? were monitored continuously. The therapeutic channel upper endoscope was ? introduced under direct vision th rough the mouth, and advanced to the ? body of the stomach. The upper GI endoscopy was accomplished without ? difficulty. The patient tolerated the procedure well. Estimated Blood Loss: ?None. Complications: ? No immedia te complications. Sedation: ? Monitored anesthesia care was adm inistered by an anesthesia ? professional. The following diana eters were monitored: oxygen ? saturation, heart rate, blood pre ssure, respiratory rate, EKG, adequacy ? of pulmonary ventilation, and res ponse to care. Attending Participation: I was present a nd participated during the entire ? pro cedure, including non-judd portions. Jesús Campa MD 01/23/2022 4:08:01 PM Number of Addenda: 0 Sree Little M.D. GI PROCEDURE ORDERABLES Performing Organization Address City/State/ZIP Code Phon e Number [facility] NA (ABNORMAL) Ammonia (01/23/2022 5:27 AM CDT)Only the most recent of4 results within the time period is included. athologist Signature Ammonia, P 109 (H) <=30 01/23/2022 [facility] mcmol/L 6:11 AM CDT Specimen Anatomical Collection Method Collection Time Receive d Time (Source) Location / / Volume Laterality Blood (Blood, 01/23/2022 5:27 AM 01/24/20 5:41 Venous) CDT AM CDT Sree Little M.D. LAB BLOOD NON ADD-ON Performing Organization Address City/State/ZIP Code Phon e Number [facility] - [address] [place], [place] [address] [place] [address] Laboratories-[facility] [address] Protein, Total, Body Fluid (01/21/2022 10:00 AM CDT)Only the most recent of3 resultswithin the time period is included. athologist Signature Protein, 0.5 See Comment 01/21/2022 DTL Total, BF g/dL 1:19 PM CDT Comment: ----ADDITIONAL INFORMATION---- A pleural [...] ical findings. All other fluids refer to [email or web address].com for further inter pretive information. This test has been modified from the community outreach coordinator's instructions. Its perform ance characteristics were determined by [facility] in a manner consistent with CLIA require ments. This test has not been cleared or approv ed by the U.S. Food and Drug Administration. Fluid Type, Protein, Total Fluid, Peritoneal Fluid 01/21/2022 10:40 AM CDT DTL Specimen Anatomical Collection Method Collection Time Receive d Time (Source) Location / / Volume Laterality Fluid 01/21/2022 10:00 01/21/2022 (Peritoneal AM CDT 11:37 AM CDT Fluid) Matthew Becerril M.D. LAB BODY FLUIDS AND STOOLS O RDERAPREMA Performing Organization Address City/State/ZIP Code Phon e Number [facility] - [address] [place] [address] [address] [place] [address] Laboratories-[address] Bacterial Culture, Aerobic + Susc (01/21/2022 10:00 AM CDT)Only the most recent of4 resultswithin the time period is included. [facility] gist Method Time Signature Bacterial No growth 01/26/2022 DTL Culture, after 5 7:48 AM CDT Aerobic + Susc days of incubation. Specimen Anatomical Collection Method Collection Time Receive d Time (Source) Location / / Volume Laterality Fluid 01/21/2022 10:00 01/21/2022 (Peritoneal AM CDT 11:52 AM CDT Fluid) Comment: Specimen Source Site: Fluid Narrative [facility] - [facility] - 01/26/2022 7:48 AM CDT Bacterial Culture: Received Bactec aerob ic and Bactec anaerobic bottles Matthew Becerril M.D. LAB MICROBIOLOGY - GENERAL O RDERABLES Performing Organization Address City/State/ZIP Code Phon e Number [facility] - [address] [place], [place] [address] [facility] [place] [address] Laboratories-[facility] [address] Cell Count and Differential, Body Fluid (01/21/2022 10:00 AM CDT)Only the most recent of5 resultswithin the time period is included. [facility] gist Method Time Signature Fluid Type Peritoneal- 01/21/2022 DHPM Paracentesi 11:10 AM CDT s Gross Serous 01/21/2022 DHPM Appearance 11:10 AM CDT Total Nucleated 83 /mcL 01/21/2022 DHPM Cells 11:10 AM CDT Comment: ----REFERENCE VALUE---- Synovial: <150 /mcL Peritoneal: <500 /mcL Pleural: <500 /mcL Pericardial: <500 /mcL ----ADDITIONAL INFORMATION---- This test has been modified from the man ufacturer's instructions. Its performance characteri stics were determined by [facility] in a manner co nsistent with CLIA requirements. This test has not bee n cleared or approved by the U.S. Food and Drug Admin istration. Neutrophils 2 % 01/21/2022 11:51 AM CDT DHPM Comment: ----REFERENCE VALUE---- Synovial: <25% Peritoneal: <25% Pleural: <25% Pericardial: <25% Lymphocytes 50 Synovial <75% % 01/21/2022 11:51 AM DH PM CDT Monocytes/Macrophages 48 Synovial <70% % 01/21/2022 1 1:51 AM DHPM CDT Diff Comments 54 cells counted. 01/21/2022 11:51 A M DHPM CDT Comment No blasts or 01/21/2022 11:51 AM DHPM malignant cells CDT seen. Reviewed by: Ruth 01/21/2022 11:51 AM DHPM CDT Specimen Anatomical Collection Method Collection Time Receive d Time (Source) Location / / Volume Laterality Fluid 01/21/2022 10:00 01/21/2022 (Peritoneal AM CDT 10:48 AM CDT Fluid) Matthew Becerril M.D. LAB BODY FLUIDS AND STOOLS O RDERABLES Performing Organization Address City/State/ZIP Code Phon e Number [facility] - [address] [place], [place] [address] [place] [address] Laboratories-[facility] [address] (ABNORMAL) Comprehensive Metabolic Panel (01/21/2022 7:25 AM CDT)Only the most recent of11 resultswithin the time period is included. Analysis [facility] Time Signature Potassium, S 4.6 3.6 - 5.2 01/21/2022 DTL mmol/L 9:11 AM CDT Sodium, S 137 135 - 145 01/21/2022 DTL mmol/L 9:11 AM CDT Chloride, S 106 98 - 107 01/21/2022 DTL mmol/L 9:11 AM CDT Bicarbonate, S 21 (L) 22 - 29 01/21/2022 DTL mmol/L 9:11 AM CDT Anion Gap 10 7 - 15 01/21/2022 DTL 9:11 AM CDT BUN (Blood Urea 36 (H) 6 - 21 01/21/2022 DTL Nitrogen), S mg/dL 9:11 AM CDT Creatinine 1.09 (H) 0.59 - 01/21/2022 DTL 1.04 mg/dL 9:11 AM CDT Estimated GFR 70 >=60 01/21/2022 DTL (eGFR) mL/min/BSA 9:11 AM CDT Comment: Estimated GFR calculated using the 2020 CKD_EPI creatinine equation. Calcium, Total, S 8.6 8.6 - 10.0 mg/dL 01/21/2022 9:11 AM CDT DTL Glucose, S 129 70 - 140 mg/dL 01/21/2022 9:11 AM CDT D TL Protein, Total, S 4.6 (L) 6.3 - 7.9 g/dL 01/21/2022 9:11 A M CDT DTL Albumin, S 3.4 (L) 3.5 - 5.0 g/dL 01/21/2022 9:11 AM CDT D TL Aspartate Aminotransferase 63 (H) 8 - 43 U/L 01/21/2022 9 :11 AM CDT DTL (AST), S Alkaline Phosphatase, S 318 (H) 35 - 104 U/L 01/21/2022 9: 11 AM CDT DTL Alanine Aminotransferase 23 7 - 45 U/L 01/21/2022 9:1 1 AM CDT DTL (ALT), S Bilirubin, Total, S 8.6 (H) <=1.2 mg/dL 01/21/2022 9:11 AM CDT DTL Specimen Anatomical Collection Method Collection Time Receive d Time (Source) Location / / Volume Laterality Blood (Blood, 01/21/2022 7:25 AM 01/22/20 8:51 Venous) CDT AM CDT Matthew Becerril M.D. LAB BLOOD ADD-ON Performing Organization Address City/[facility] Phon e Number [facility] - [address] (ABNORMAL) Iron and Total Iron-Binding Capacity (01/21/2022 7:21 AM CDT) athologist Signature Iron 118 35 - 145 01/22/2022 DTL mcg/dL 4:53 PM CDT Total Iron 114 (L) 250 - 400 01/22/2022 DTL Binding mcg/dL 4:53 PM CDT Capacity Percent >90 (H) 14 - 50 % 01/22/2022 DTL Saturation 4:53 PM CDT Specimen Anatomical Collection Method Collection Time Receive d Time (Source) Location / / Volume Laterality Blood (Blood, 01/21/2022 7:21 AM 01/23/20 4:23 Venous) CDT PM CDT Sree Little M.D. LAB BLOOD ADD-ON Performing Organization Address City/[facility] Phon e Number [facility] - [address] (ABNORMAL) Ferritin (01/21/2022 7:21 AM CDT) P athologist Signature Ferritin, S 564 (H) 11 - 307 01/22/2022 DTL mcg/L 5:18 PM CDT Specimen Anatomical Collection Method Collection Time Receive d Time (Source) Location / / Volume Laterality Blood (Blood, 01/21/2022 7:21 AM 01/23/20 4:23 Venous) CDT PM CDT Sree Little M.D. LAB BLOOD ADD-ON Performing Organization Address [facility] Phon e Number [facility] - [address] [place], [place] [phone] [place] [address] [address] [facility] (ABNORMAL) Hepatic Function Panel (01/21/2022 2:40 AM CDT)Only the most recent of11 resultswithin the time period is included. [facility] gist Method Time Signature Bilirubin, Total, S 8.6 (H) <=1.2 01/21/2022 DTL mg/dL 3:28 AM CDT Bilirubin, Direct, S 4.6 (H) 0.0 - 0.3 01/21/2022 DTL mg/dL 3:28 AM CDT Aspartate 60 (H) 8 - 43 01/21/2022 DTL Aminotransferase U/L 3:28 AM CDT (AST), S Alanine 23 7 - 45 01/21/2022 DTL Aminotransferase U/L 3:28 AM CDT (ALT), S Alkaline 306 (H) 35 - 104 01/21/2022 DTL Phosphatase, S U/L 3:28 AM CDT Albumin, S 3.3 (L) 3.5 - 5.0 01/21/2022 DTL g/dL 3:28 AM CDT Protein, Total, S 4.5 (L) 6.3 - 7.9 01/21/2022 DTL g/dL 3:28 AM CDT Specimen Anatomical Collection Method Collection Time Receive d Time (Source) Location / / Volume Laterality Blood (Blood, 01/21/2022 2:40 AM 01/22/20 3:04 Venous) CDT AM CDT Haile Keith M.D. LAB BLOOD ADD-ON Performing Organization Address City/[facility] Phon e Number [facility] - [address] [place], [place] [address] [facility] [place] [address] [facility] 200 [facility] Lipase (01/21/2022 2:40 AM CDT)Only the most recent of4 resultswithin the time period is included. P athologist Signature Lipase, S 26 13 - 60 U/L 01/21/2022 3:23 DTL AM CDT Specimen Anatomical Collection Method Collection Time Receive d Time (Source) Location / / Volume Laterality Blood (Blood, 01/21/2022 2:40 AM 01/22/20 3:05 Venous) CDT AM CDT Cody Knight M.D. LAB BLOOD ADD-ON Performing Organization Address City/[facility] Phon e Number [facility] - [address] [place], [place] [address] [facility] [place] [address] Laboratories-[facility] 200 [facility] (ABNORMAL) Dipstick, POCT, Urine (01/20/2022 9:05 PM CDT)Only the most recent of 3 resultswithin the time period is included. Patholo gist Method Time Signature Glucose, Negative Negative 01/20/2022 PCED POCT, U mg/dL 9:06 PM CDT Ketone, POCT, Trace (A) Negative 01/20/2022 PCED U mg/dL 9:06 PM CDT Specific 1.015 1.005 - 01/20/2022 PCED [place], 1.030 9:06 PM CDT POCT, U Blood, POCT, Negative Negative 01/20/2022 PCED U 9:06 PM CDT pH, POCT, 5.5 5.0 - 8.0 01/20/2022 PCED Urine 9:06 PM CDT Protein, Negative Negative 01/20/2022 PCED POCT, U mg/dL 9:06 PM CDT Nitrites, Negative Negative 01/20/2022 PCED POCT, U 9:06 PM CDT Leukocytes, Negative Negative 01/20/2022 PCED POCT, U 9:06 PM CDT Specimen Anatomical Collection Method Collection Time Receive d Time (Source) Location / / Volume Laterality Urine 01/20/2022 9:05 PM 9:06 CDT PM CDT Unknown Provider LAB POCT ORDERABLES - DEVICE Performing Organization Address City/[facility] Phon e Number [facility]OC [facility] [address] [place] [address] OUTPATIENT LABS PCED [facility] [place] [address] Formerly [facility] 200 [facility] Microscopic Automated (01/20/2022 8:57 PM CDT)Only the most recent of2 results within the time period is included. P athologist Signature Microscopy Normal 01/20/2022 DTL 10:03 PM CDT WBC 1-3 /hpf 01/20/2022 DTL 10:03 PM CDT Comment: ----REFERENCE VALUE---- 1-3 ??(Males) 1-10 (Females) Casts, Hyaline 4-10 /lpf 01/20/2022 10:03 PM CDT D TL Specimen Anatomical Collection Method Collection Time Receive d Time (Source) Location / / Volume Laterality Urine 01/20/2022 8:57 PM 9:23 CDT PM CDT Cody Knight M.D. LAB URINE ORDERABLES Performing Organization Address [facility] Phon e Number [facility] - [address] [place], [place] [address] [place] [phone] [place] [address] Bacterial Culture, Aerobic + Susc, Urine (01/20/2022 8:57 PM CDT)Only the most recent of5 resultswithin the time period is included. [facility] Method Time Signature Urine Culture No growth 01/22/2022 DT after 1 day 6:31 AM CDT of incubation. Specimen Anatomical Collection Method Collection Time Receive d Time (Source) Location / / Volume Laterality Urine (Urine, 01/20/2022 8:57 PM 01/21/20 Straight CDT 10:31 PM CDT Catheter) Comment: Specimen Source Site: Urine Cody Knight M.D. LAB MICROBIOLOGY - GENERAL O RDERABLES Performing Organization Address [facility]/ZIP [facility] Phon e Number [facility] - [address] [place], [place] [address] [facility] [place] [address] Laboratories-[address] Gram Stain, Urine (01/20/2022 8:57 PM CDT) [facility] Method Time Signature Source Urine, 01/20/2022 DTL Urine, 9:22 PM CDT Straight Catheter Gram Stain, U Negative Negative 01/20/2022 DTL 10:25 PM CDT Specimen Anatomical Collection Method Collection Time Receive d Time (Source) Location / / Volume Laterality Urine 01/20/2022 8:57 PM 2 9:22 CDT PM CDT Cody Knight M.D. LAB URINE ORDERABLES Performing Organization Address City/[facility]/ZIP Code Phon e Number [facility] - [address] [place], [place] [address] [facility] [place] [address] Laboratories-[facility] [address] [facility] pH, Urine (01/20/2022 8:57 PM CDT)Only the most recent of2 resultswithin the time period is included. P athologist Signature pH, U 5.5 4.5 - 8.0 01/20/2022 9:48 DTL PM CDT Specimen Anatomical Collection Method Collection Time Receive d Time (Source) Location / / Volume Laterality Urine 01/20/2022 8:57 PM 2 9:23 CDT PM CDT Cody Knight M.D. LAB URINE ORDERABLES Performing Organization Address City/[facility]/ZIP Code Phon e Number [facility] - [address] [place], [place] [address] [place] [address] Osmolality, Urine (01/20/2022 8:57 PM CDT)Only the most recent of2 resultswithin the time period is included. P athologist Signature Osmolality, U 401 150 - 1150 01/20/2022 DTL mOsm/kg 9:48 PM CDT Specimen Anatomical Collection Method Collection Time Receive d Time (Source) Location / / Volume Laterality Urine 01/20/2022 8:57 PM 2 9:23 CDT PM CDT Cody Knight M.D. LAB URINE ORDERABLES Performing Organization Address City/[facility]/ZIP Code Phon e Number [facility] - [address] [place], [place] [address] [place] [address] Laboratories-[facility] [address] (ABNORMAL) Venous Blood Gas and Electrolytes CG8+, POCT (01/20/2022 8:54 PM CDT) Only the most recent of3 resultswithin the time period is included. P athologist Signature Sample Site, Venstick 01/20/2022 PCSM POCT 11:46 PM CDT Comment: ----ADDITIONAL INFORMATION---- Performed at the Point of Care pH, Venous, POCT, B 7.45 (H) 7.32 - 7.43 01/20/2022 11:46 P M CDT PCSM Comment: ----ADDITIONAL INFORMATION---- Performed at the Point of Care pCO2, Venous, POCT, B 30 (L) 41 - 51 mm Hg 01/20/2022 11: 46 PM CDT PCSM Comment: ----ADDITIONAL INFORMATION---- Performed at the Point of Care pO2, Venous, POCT, B 33 Not Applicable mm Hg 01/21/20 22 11:46 PM CDT PCSM Comment: ----ADDITIONAL INFORMATION---- Performed at the Point of Care Base Excess, Venous, POCT, -3 Not Applicable mmol/L 01/20/2022 11:46 PM CDT PCSM B Comment: ----ADDITIONAL INFORMATION---- Performed at the Point of Care HCO3, Venous, POCT, B 21 Not Applicable mmol/L 2021 11:46 PM CDT PCSM Comment: ----ADDITIONAL INFORMATION---- Performed at the Point of Care Sodium, POCT, B 138 135 - 145 mmol/L 01/20/2022 11:46 PM CDT PCSM Comment: ----ADDITIONAL INFORMATION---- Performed at the Point of Care Potassium, POCT, B 5.0 3.6 - 5.2 mmol/L 01/20/2022 11: 46 PM CDT PCSM Comment: ----ADDITIONAL INFORMATION---- Performed at the Point of Care Calcium, Ionized, POCT, B 4.90 4.65 - 5.30 mg/dL 2021 11:46 PM CDT PCSM Comment: ----ADDITIONAL INFORMATION---- Performed at the Point of Care Glucose, POCT, B 113 70 - 140 mg/dL 01/20/2022 11:46 P M CDT PCSM Comment: ----ADDITIONAL INFORMATION---- Performed at the Point of Care Hematocrit, POCT, B 18.0 (L) 35.5 - 44.9 % 01/20/2022 11:46 PM CDT PCSM Comment: ----ADDITIONAL INFORMATION---- Performed at the Point of Care Specimen Anatomical Collection Method Collection Time Receive d Time (Source) Location / / Volume Laterality Blood 01/20/2022 8:54 PM 2 CDT 11:46 PM CDT Unknown Provider LAB POCT ORDERABLES - DEVICE Performing Organization Address City/[facility] Phon e Number POC RST [facility] INPATIENT [address] [place], [place] [address] [place] [address] [place] [facility] [address] [place] [address] Lactate, POCT (01/20/2022 8:51 PM CDT)Only the most recent of6 resultswithin the time period is included. athologist Signature Lactate, POCT 1.50 0.50 - 01/20/2022 PCLX 2.20 11:45 PM CDT mmol/L Sample Site, Venstick 01/20/2022 PCLX POCT 11:45 PM CDT Specimen Anatomical Collection Method Collection Time Receive d Time (Source) Location / / Volume Laterality Blood 01/20/2022 8:51 PM 2 CDT 11:46 PM CDT Unknown Provider LAB POCT ORDERABLES - DEVICE Performing Organization Address City/[facility] Phon e Number POC [facility] [address] [place] [address] [place] [address] [place] [facility] [address] [facility] hCG (Human Chorionic Gonadotropin), Quantitative, (01/20/2022 8:49 PM CDT)Only the most recent of5 resultswithin the time period is included. athologist Signature HCG, 0.5 <5 IU/L 01/20/2022 [facility] Quantitative, 9:19 PM CDT , P Specimen Anatomical Collection Method Collection Time Receive d Time (Source) Location / / Volume Laterality Blood (Blood, 01/20/2022 8:49 PM 01/21/20 22 9:01 Venous) CDT PM CDT Cody Knight M.D. LAB BLOOD ADD-ON Performing Organization Address City/[facility] Code Phon e Number [facility] - 200 [place], [place] [address] [facility] [place] [address] Drug Screen Urine (01/10/2022 1:46 PM CDT)Only the most recent of3 resultswithin the time period is included. athologist Signature Ethanol, Negative NEGATIVE 01/10/2022 DTL Screen U 3:16 PM CDT Amphetamines, Negative NEGATIVE 01/10/2022 DTL U 3:16 PM CDT Barbiturates, Negative NEGATIVE 01/10/2022 DTL Screen, U 3:16 PM CDT Benzodiazepine Negative NEGATIVE 01/10/2022 DTL s, Screen, U 3:16 PM CDT Cocaine, Negative NEGATIVE 01/10/2022 DTL Screen, U 3:16 PM CDT Opiates, Negative NEGATIVE 01/10/2022 DTL Screen, U 3:16 PM CDT Phencyclidine, Negative NEGATIVE 01/10/2022 DTL Screen, U 3:16 PM CDT Tetrahydrocann Negative NEGATIVE 01/10/2022 DTL abinol, U 3:16 PM CDT Specimen Anatomical Collection Method Collection Time Receive d Time (Source) Location / / Volume Laterality Urine (Urine, 01/10/2022 1:46 PM 01/11/20 22 2:17 Midstream) CDT PM CDT Cornelia Jurado M.D. LAB URINE ORDERABLES Performing Organization Address City/State/ZIP Code Phon e Number [facility] - [address] [place] [address] US Liver with Liver Doppler (01/10/2022 11:10 AM CDT) Anatomical Region Laterality Modality Abdomen, Ultrasound RST LOS, Ultrasound ARZ LOS, Ultrasound FLA N/A Ultrasound LOS Specimen (Source) Anatomical Collection Method Collection Time Re ceived Time Location / / Volume Laterality 01/10/2022 11:35 AM CDT Impressions 01/10/2022 11:51 AM CDT Cirrhotic liver. Widely patent hepatic veins. The portal venous system is also patent, however there is slow flow. Narrative 01/10/2022 11:51 AM CDT EXAM: US LIVER WITH LIVER DOPPLER Exam performed with color and spectral D oppler analysis. COMPARISON: CT from 11/25/2021. FINDINGS: Liver: Cirrhotic. Doppler: Splenic, portal, and hepatic ve ins are patent with antegrade flow. There is very slow flow within the main, right and left portal v eins. Moderately elevated peak systolic velocities in the hepatic artery which is otherwise widely patent. There may be due to vessel tortuosity. The main hepatic artery is patent with antegrade flow. Intrahepatic ducts: Not dilated. Common duct: Not dilated. Other: Trace. Procedure Note Gerard Hutton M.D. - 01/10/2022Format ting of this note might be different from the original. EXAM: US LIVER WITH LIVER DOPPLER Exam performed with color and spectral D oppler analysis. COMPARISON: CT from 11/25/2021. FINDINGS: Liver: Cirrhotic. Doppler: Splenic, portal, and hepatic ve ins are patent with antegrade flow. There is very slow flow within the main, right and left portal v eins. Moderately elevated peak systolic velocities in the hepatic artery which is otherwise widely patent. There may be due to vessel tortuosity. The main hepatic artery is patent with antegrade flow. Intrahepatic ducts: Not dilated. Common duct: Not dilated. Other: Trace. IMPRESSION: Cirrhotic liver. Widely patent hepatic v eins. The portal venous system is also patent, however there is slow flow. Cornelia Jurado M.D. IMG US PROCEDURES US Abdomen Limited (01/10/2022 11:07 AM CDT) Anatomical Region Laterality Modality Abdomen, Ultrasound RST LOS, Ultrasound ARZ LOS, Ultrasound FLA N/A Ultrasound LOS Specimen (Source) Anatomical Collection Method Collection Time Re ceived Time Location / / Volume Laterality 01/10/2022 11:33 AM CDT Impressions 01/10/2022 11:34 AM CDT Targeted ultrasound the patient's abdomen and retroperitoneum demonstrate no significant hematoma visible sonographically. Only a trace amount of ascites persists following paracentesis. Narrative 01/10/2022 11:34 AM CDT EXAM: US ABDOMEN LIMITED COMPARISON: CT the abdomen pelvis from 0 11/25/2021 2 Procedure Note Gerard Hutton M.D. - 01/10/2022Format ting of this note might be different from the original. EXAM: US ABDOMEN LIMITED COMPARISON: CT the abdomen pelvis from 0 11/25/2021 2 IMPRESSION: Targeted ultrasound the patient's abdome n and retroperitoneum demonstrate no significant hematoma visible sonographically. Only a trace amount of ascites persists following paracentesis. Cornelia Jurado M.D. IMG US PROCEDURES Lactate Dehydrogenase (LD), Body Fluid (01/10/2022 9:51 AM CDT) [facility] Method Time Signature Lactate 41 See Comment 01/10/2022 DTL Dehydrogenase U/L 1:37 PM CDT (LD), BF Comment: ----ADDITIONAL INFORMATION---- Pleural fluid [...] clinical findings. All other fluids refer to [email or web address]com for further interpretive information. This test has been modified from the man ufacturer's instructions. Its performance characteristics were det ermined by [facility] in a manner consistent with CLIA requirements . This test has not been cleared or approved by the U.S. Food and Drug Administration. Fluid Type, Lactate Fluid, Peritoneal Fluid 2021 11:17 AM CDT DTL Dehydrogenase Specimen Anatomical Collection Method Collection Time Receive d Time (Source) Location / / Volume Laterality Fluid 01/10/2022 9:51 AM 2 (Peritoneal CDT 11:51 AM CDT Fluid) Cornelia Jurado M.D. LAB BODY FLUIDS AND STOOLS O RDERABLES Performing Organization Address City/State/ZIP Code Phon e Number [facility] - [address] [place], [place] [address] [facility] [place] [address] Laboratories-[facility] [address] Glucose, Body Fluid (01/10/2022 9:51 AM CDT) athologist Signature Glucose, BF 101 See Comment 01/10/2022 DTL mg/dL 1:37 PM CDT Comment: ----ADDITIONAL INFORMATION---- Body fluid glucose concentrations [...] of infection. All other fluids refer to www.[email or web address].com for further inter pretive information. This test has been modified from the man ufcoreenurer's instructions. Its performance characteri stics were determined by [facility] in a manner co nsistent with CLIA requirements. This test has not been norah ared or approved by the U.S. Food and Drug Administration. Fluid Type, Glucose Fluid, Peritoneal Fluid 2021 11:17 AM CDT DTL Specimen Anatomical Collection Method Collection Time Receive d Time (Source) Location / / Volume Laterality Fluid 01/10/2022 9:51 AM 2 (Peritoneal CDT 11:51 AM CDT Fluid) Cornelia Jurado M.D. LAB BODY FLUIDS AND STOOLS O RDERABLES Performing Organization Address City/State/ZIP Code Phon e Number [facility] - [address] [place], [place] [address] [place] [address] [facility] [address] Amylase, Body Fluid (01/10/2022 9:51 AM CDT) athologist Signature Amylase, BF 6 See Comment 01/10/2022 DTL U/L 1:37 PM CDT Comment: ----ADDITIONAL INFORMATION---- Peritoneal and Drain fluid amylase activ ity in non-pancreatic peritoneal fluid is often less than or equal to the serum amylase activity. Ascites a ssociated with pancreatitis typically has amylase activ ity at least 5-fold greater than serum. Normal pleural fluid amylase activity is typically less than the upper limit of normal serum amylase and has a ratio of pleural fluid amylase to serum amylase r atio <1.0. All other fluids refer to www.[employer]zy for further inter pretive information. This test has been modified from the man ufacturer's instructions. Its performance characteri stics were determined by [facility] in a manner consistent wi CLIA requirements. This test has not been cleared or approv ed by the U.S. Food and Drug Administration. Fluid Type, Amylase Fluid, Peritoneal Fluid 2021 11:17 AM CDT DTL Specimen Anatomical Collection Method Collection Time Receive d Time (Source) Location / / Volume Laterality Fluid 01/10/2022 9:51 AM (Peritoneal CDT 11:51 AM CDT Fluid) Cornelia Jurado M.D. LAB BODY FLUIDS AND STOOLS O RDERABLES Performing Organization Address City/State/ZIP Code Phon e Number [facility] - [address] [place], [place] [address] [facility] [place] [address] Laboratories-[facility] [address] Albumin, Body Fluid (01/10/2022 9:51 AM CDT)Only the most recent of2 results within the time period is included. P athologist Signature Albumin BF 0.3 See Comment 01/10/2022 DTL g/dL 1:37 PM CDT Comment: ----ADDITIONAL INFORMATION---- Peritoneal fluid albumin is used to calc ulate the serum-ascites albumin gradient (SAAG). V alues greater than or equal to 1.1 g/dL suggest portal hypertension. Pleural fluid albumin may be used to ada culate a serum-effusion albumin gradient. Values greater than 1.2 g/dL are most consistent with a noriega sudative process. ?? All other fluids refer to www.[employer] [facility].[employer]Cozy for further interpretive information. This t est has been modified from the community outreach coordinator's instruc tions. Its performance characteristics were determi foreign by [facility] in a manner consistent with CLIA require ments. This test has not been cleared or approved by the U.S. Food and Drug Administration. Fluid Type, Albumin Fluid, Peritoneal Fluid 2021 11:17 AM CDT DTL Specimen Anatomical Collection Method Collection Time Receive d Time (Source) Location / / Volume Laterality Fluid 01/10/2022 9:51 AM (Peritoneal CDT 11:51 AM CDT Fluid) Cornelia Jurado M.D. LAB BODY FLUIDS AND STOOLS O RDERABLES Performing Organization Address City/[facility] Phon e Number [facility] - 200 [place], [place] [address] [place] [address] Lactate (01/09/2022 9:13 PM CDT)Only the most recent of5 resultswithin the time period is included. P athologist Signature Lactate, P 1.5 0.5 - 2.2 01/09/2022 DTL mmol/L 10:28 PM CDT Specimen Anatomical Collection Method Collection Time Receive d Time (Source) Location / / Volume Laterality Blood (Blood, 01/09/2022 9:13 PM 01/10/20 22 Venous) CDT 10:06 PM CDT Cornelia Jurado M.D. LAB BLOOD NON ADD-ON Performing Organization Address City/[facility]/ZIP Code Phon e Number [facility] - [address] [address] [facility] DX Chest Portable 1 View (01/09/2022 4:34 PM CDT) Anatomical Region Laterality Modality Chest, Thoracic RST LOS, Thoracic ARZ LOS, Thoracic N/A Digital Radiography FLA LOS Specimen (Source) Anatomical Collection Method Collection Time Re ceived Time Location / / Volume Laterality 01/09/2022 4:53 PM CDT Impressions 01/09/2022 4:57 PM CDT Compared to 09/22/2021, new hazy opacities in the right mid and lower lung are indeterminate for infection/inflammation or edema. Shallow inspiration accentuates heart size and pulmonary vascularity. Narrative 01/09/2022 4:57 PM CDT EXAM: ??DX CHEST PORTABLE 1 VIEW Procedure Note Andrew Rodriguez M.D. - 01/09/2022Formatti ng of this note might be different from the original. EXAM: DX CHEST PORTABLE 1 VIEW IMPRESSION: Compared to 09/22/2021, new hazy opaciti es in the right mid and lower lung are indeterminate for infection/inflammation or edema. Shallow inspiration accentuates heart size and pulmonary vascularity. Cornelia Jurado M.D. IMG DIAGNOSTIC IMAGING PROCE DURES SARS Coronavirus 2, RNA, Rapid POC, V Asymptomatic (01/09/2022 1:45 PM CDT) [facility] Method Time Signature SARS Undetected Undetected 01/09/2022 DTLR Coronavirus-2 2:05 PM CDT , RNA, Rapid POC, V Comment: Negative for SARS-CoV-2. The [facility] COVID-19 test is a molecular jonathan t for SARS-CoV-2, the virus that causes COVID- 19. A Negative result means that the [facility] COV ID-19 test did not detect SARS-CoV-2 virus in your sample. [facility] COVID-19 test uses the [employer] Global nitoring System. This test has received Emergency Use Authorization (EUA) by the U.S. Food and Drug Administration (FDA) and is used per man ufacturer instructions. Performance characteristic s were verified by [facility] in a manner consistent with CLIA requirements. Fact sheets for this Emerg ency Use Authorization (EUA) can be found at the following links: Providers: https://[employer].com/documentation/prov iders.pdf Patients: https://[employer].com/documentation/deshawn ents.pdf SARS Coronavirus 2, Source Nasopharynx DEFAULT 01/09/2022 2:05 PM CDT DTLR Specimen Anatomical Collection Method Collection Time Receive d Time (Source) Location / / Volume Laterality Varies 01/09/2022 1:45 PM 1:45 (Nasopharynx) CDT PM CDT Reese Reyes M.D. LAB MICROBIOLOGY - GENERAL O RDERABLES Performing Organization Address City/State/ZIP Code Phon e Number PERFORMING LABS, REF [place] [address] INTERFACE Ref Interface [address] DTLR Performing Labs, [place] [address] Interface 200 [facility] Bacteria / Raudel Culture, Blood # 2 (01/09/2022 10:11 AM CDT)Only the most recent of6 resultswithin the time period is included. Patholo gist Method Time Signature Bacteria/Adriana No growth 01/14/2022 DTL da Culture, after 5 11:02 AM CDT Blood days of incubation. Specimen (Source) Anatomical Collection Method Collection Time Re ceived Time Location / / Volume Laterality Blood (Blood, 01/09/2022 10:11 01/09/2022 Peripheral Draw) AM CDT 10:32 AM CD T Comment: Specimen Source Site: Blood Narrative [facility] - [facility] - 01/14/2022 11:02 AM CDT Received Bactec Peds bottle Wilfredo Vigil P.A.-C. LAB MICROBIOLOGY - GENERAL O RDERABLES Performing Organization Address City/[facility] Code Phon e Number [facility] - 200 [place], [place] [address] [facility] [place] [address] Glucose, POCT (01/09/2022 10:04 AM CDT)Only the most recent of2 resultswithin the time period is included. Analysis Performed At Patho logist Time Signature Glucose, POCT, Collected DEFAULT 01/09/2022 SMLX B 10:04 AM CDT Specimen Anatomical Collection Method Collection Time Receive d Time (Source) Location / / Volume Laterality Blood (Blood, 01/09/2022 10:04 01/09/2022 Capillary) AM CDT 10:04 AM CDT Wilfredo Vigil P.A.-C. LAB POCT ORDERABLES-MANUAL Performing Organization Address City/[facility] Phon e Number [facility] - 200 [place], [place] [address] [facility] [place] [address] Paracentesis (12/21/2021 2:48 PM CDT) Narrative Divina Ch, D.O., M.P.H. - 12/02 2:48 PM CDT [...] Clifton Liu M.D. PROCEDURE/MINOR SURGICAL ORD ERABLES Carboxy-Tetrahydrocannabinol (THC) Confirmation, Urine (12/15/2021 5:58 PM CDT) [facility] Method Time Signature Carboxy-THC- by 19 Cutoff: 12/18/2021 [facility] GC/MS 3.0 ng/mL 6:38 AM CDT Carboxy-THC Positive. 12/18/2021 [facility] Interpretation 6:38 AM CDT Comment: ----ADDITIONAL INFORMATION---- This report is intended for use in clini ada monitoring and management of patients. ??It is not intended for use i n employment-related testing. This test was developed and its performa nce characteristics determined by [facility] [place] in a manner consistent with CLIA requirements. This test has not been cleared or approved by the U.S. Meggan d and Drug Administration. Specimen Anatomical Collection Method Collection Time Receive d Time (Source) Location / / Volume Laterality Urine 12/15/2021 5:58 PM 7:09 CDT AM CDT Adeline Frazier M.D., Ph.D. LAB URINE ORDERABLES Performing Organization Address City/State/ZIP Code Phon e Number [facility] [address] [place], [place] [address] [place] [address] [facility] [place] [address] Laboratory Medicine and Pathology [address] [place] (ABNORMAL) Drug Abuse Survey with Confirmation, Urine (12/15/2021 5:58 PM CDT) [facility] Method Time Signature Alcohol Negative Cutoff: [...] Ph.D. LAB URINE ORDERABLES Performing Organization Address City/[facility] Phon e Number [facility] [address] [place] [address] [facility] [place] [address] Laboratory Medicine and Pathology [address] [place] [address] Dr. [place] Ethyl Glucuronide Confirmation, Random, Urine (12/15/2021 5:51 PM CDT) [facility] Method Time Signature Ethyl Glucuronide Negative Cutoff: 12/17/2021 [facility] Confirmation, U 250 ng/mL 10:34 AM CDT Ethyl Sulfate Negative Cutoff: 12/17/2021 [facility] 100 ng/mL 10:34 AM CDT Ethyl Gluc/Sulfate Negative. 12/17/2021 [facility] Interpretation 10:34 AM CDT Comment: ----ADDITIONAL INFORMATION---- This report is intended for use in clini ada monitoring and management of patients. ??It is not intended for use i n employment-related testing. This test was developed and its performa nce characteristics determined by [facility] [place] in a manner consistent with CLIA requirements. This test has not been cleared or approved by the U.S. Meggan d and Drug Administration. Specimen Anatomical Collection Method Collection Time Receive d Time (Source) Location / / Volume Laterality Urine (Urine, 12/15/2021 5:51 PM 12/16/19 22 9:55 Midstream) CDT PM CDT Adeline Frazier M.D., Ph.D. LAB URINE ORDERABLES Performing Organization Address City/[facility] Phon e Number [facility] [address] [place], [place] [address] [facility] [place] [address] Laboratory Medicine and Pathology [address] [place] [address] Dr. [place] Phosphatidylethanol (Peth), whole blood- Sent Out Lab (12/15/2021 5:39 PM CDT) Component Value Ref Range Test Analysis Performed Pathologis t Method Time At Signature Phosphatidylethanol NEGATIVE NEGATIVE 12/26/2021 [facility] (PEth) ng/mL 1:01 PM CDT Comment: Analyzed compound: PEth 16:0/18:1. ? [id number]-[id number]-yysuqb-an-gacxikk-3 -phosphoethanol. ? Analysis performed by [employer] with ? Tandem Mass Spectrometry (LC/MS/MS). ? [...] Organization Address City/State/ZIP Code Phon e Number [employer] [address] [place], [place] [address] [employer] [place] [address] [address] Paracentesis (12/04/2021 9:57 AM CDT) Narrative Blanquita [...] LAB BLOOD NON ADD-ON Performing Organization Address City/State/[facility] Code Phon e Number [facility] - 200 [place] [address] [place] [address] (ABNORMAL) Blood Gas with Coox, Venous (12/04/2021 7:30 AM CDT) [facility] gist Method Time Signature Venous pO2 36 Not [...] 7:38 AM CDT Venous Sample Venipunct 12/04/2021 STMA Site 7:38 AM CDT Specimen Anatomical Collection Method Collection Time Receive d Time (Source) Location / / Volume Laterality Blood (Blood, 12/04/2021 7:30 AM 12/05/19 7:34 Venous) CDT AM CDT Sree Goodman M.D., M.A. LAB BLOOD NON ADD-ON Performing Organization Address City/State/ZIP Code Phon e Number [facility] - [address] [place] [address] [facility] [place] [address] Laboratories-[place] [address] Abdomen Pelvis [...] 6:55 AM CDT)Only the most recent of7 results within the time period is included. athologist Signature Phosphorus 3.2 2.5 - 4.5 11/25/2021 DTL (Inorganic), S mg/dL 7:54 AM CDT Specimen Anatomical Collection Method Collection Time Receive d Time (Source) Location / / Volume Laterality Blood (Blood, 11/25/2021 6:55 AM 11/26/19 7:33 Venous) CDT AM CDT Dina Campa M.D. LAB BLOOD ADD-ON Performing Organization Address City/State/ZIP Code Phon e Number [facility] - 200 [place], [place] [address] [facility] [place] [address] Laboratories-[facility] [address] DX Abdomen Portable Anterior [...] intraperitoneal air on supine radiographs. IUD. Harish Schulz M.D. IMG DIAGNOSTIC IMAGING PROCE DURES Pernicious Anemia [place] (11/21/2021 11:25 AM CDT) athologist Signature Vitamin B12 621 180 - 914 11/21/2021 [facility] Assay, S ng/L 6:21 PM CDT Specimen Anatomical Collection Method Collection Time Receive d Time (Source) Location / / Volume Laterality Blood (Blood, 11/21/2021 11:25 11/21/2021 4:05 Venous) AM CDT PM CDT Dina Campa M.D. LAB BLOOD NON ADD-ON Performing Organization Address City/State/ZIP Code Phon e Number [facility] [address] [place], [place] [address] [facility] [place] [address] Laboratory Medicine and Pathology [address] [place] Copper, 24 Hour, Urine (11/21/2021 11:00 AM CDT) athologist Signature Copper, 24 Hr, U 19 9 - 71 11/24/2021 [facility] mcg/24 h 10:42 AM CDT Collection 24 h 11/24/2021 [facility] Duration 10:42 AM CDT Volume 815 mL 11/24/2021 [facility] 10:42 AM CDT Comment: ----ADDITIONAL INFORMATION---- This test was developed and its performa nce characteristics determined by [facility] [place] in a manner consistent with CLIA requirements. This test has not been cleared or approved by the U.S. Meggan d and Drug Administration. Specimen Anatomical Collection Method Collection Time Receive d Time (Source) Location / / Volume Laterality Urine (Urine, 24 11/21/2021 11:00 022 3:36 Hours) AM CDT PM CDT Shannan Rand M.D. LAB URINE ORDERABLES Performing Organization Address [facility] Phon e Number [facility] [address] [place], [place] [address] [facility] [place] [address] Laboratory Medicine and Pathology [address] [place] (ABNORMAL) Ceruloplasmin (11/20/2021 6:38 AM CDT) P athologist Signature Ceruloplasmin, 15.3 (L) 20.0 - [...] at or the on-line test catalog at [employer] for m ore information. Specimen Anatomical Collection Method Collection Time Receive d Time (Source) Location / / Volume Laterality Blood (Blood, 11/20/2021 6:38 AM 11/21/19 8:33 Venous) CDT AM CDT Gerard Andino M.D., M.S. LAB BLOOD ADD-ON Performing Organization Address City/[facility]/ZIP Code Phon e Number [facility] - [address] [place], [place] [address] [place] [address] [facility] [address] Sedimentation Rate (11/19/2021 [...] M.S. LAB BLOOD ADD-ON Performing Organization Address City/[facility] Phon e Number [facility] - [address] [place], [place] [address] [place] [address] [place], [place] [phone] [place] [address] CRP (C-Reactive Protein) (11/19/2021 2:55 PM CDT)Only [...] M.S. LAB BLOOD ADD-ON Performing Organization Address City/[facility] Phon e Number [facility] - [address] [place], [place] [address] [facility] [place] [address] [place] [address] [address] [facility] Gram Stain (11/18/2021 3:29 PM CDT)Only the most recent of2 resultswithin the time period is included. Patholo gist Method Time Signature Gram Stain No organisms seen. 11/18/2021 DTL White blood cells present. 10:50 PM CDT Specimen (Source) Anatomical Collection Method Collection Time Re ceived Time Location / / Volume Laterality Peritoneal Fluid 11/18/2021 3:29 11/19/19 22 5:38 PM CDT PM CDT Narrative [facility] - 11/18/2021 10:50 PM CDT Bacterial Culture: Received Bactec aerob ic and Bactec anaerobic bottles Gerard Andino M.D., MSumaS. LAB MICROBIOLOGY - GENERAL O RDERABLES Performing Organization Address City/[facility]/ZIP Code Phon e Number [facility] - [address] [place], [place] [address] [facility] [place] [address] Laboratories-[facility] [address] EEG prolonged (11/17/2021 10:14 AM CDT) Specimen [...] Rodriguez M.D. NEUROLOGY ORDERABLES Performing Organization Address City/[facility]/ZIP Code Phon e Number MMODAL MMODAL [...] Gerard Andino M.D., M.S. IMG MRI PROCEDURES Potassium (11/14/2021 9:00 PM CDT) P athologist Signature Potassium, S 4.1 3.6 - 5.2 11/14/2021 DTL mmol/L 10:55 PM CDT Specimen Anatomical Collection Method Collection Time Receive d Time (Source) Location / / Volume Laterality Blood (Blood, 11/14/2021 9:00 PM 11/15/19 9:46 Venous) CDT PM CDT Gerard Andino M.D., M.S. LAB BLOOD ADD-ON Performing Organization Address City/State/ZIP Code Phon e Number [facility] - [address] [place] [address] [facility] [place] [address] Laboratories-[facility] 200 [facility] SARS Coronavirus 2, Antigen, Rapid, V Asymptomatic (11/13/2021 9:45 AM CDT) Patholo gist Method Time Signature SARS CoV-2, Undetected Undetected [...] us ing the SARS-CoV-2 Ag Test from [employer], which has received Emergency U se Authorization (EUA) by the U.S. Food and Drug Administration. Fact sheets for this Emergency Use Autho rization (EUA) assay can be found at the following links: For Healthcare Providers: https://www.[employer].com/assets/images/n ew/pdf/cke-kpa-ktti-frdlm-vkkcknzh-y kwg-krj-6-ag-test.pdf?v=4 For Patients: https://www.[employer]ir[employer].com/assets/images/n ew/pdf/avj-dzdcxys-qlda-sheet-lumira ep-vuvv-vpl-2-dbfwqsw-gmym.pdf?v=5 SARS CoV-2, Antigen, Rapid, Swab, Nasopharynx 10/31 9:54 AM CDT [facility] Source Specimen Anatomical Collection Method Collection Time Receive d Time (Source) Location / / Volume Laterality Varies 11/13/2021 9:45 AM 9:54 (Nasopharynx) CDT AM CDT Gerard Andino M.D., M.S. LAB MICROBIOLOGY - GENERAL O RDERABLES Performing Organization Address City/State/[facility] Code Phon e Number [facility] - [address] [place] [address] [place] [address] Laboratories-[facility] [address] [facility] [address] Head without IV Contrast (11/12/2021 3:52 [...] HEAD WITHOUT IV CONTRAST COMPARISON: Compared to [facility] head CT fro m 03/21/2021. FINDINGS: Beam hardening and streak candace [...] HEAD WITHOUT IV CONTRAST COMPARISON: Compared to [facility] head CT fro m 03/21/2021. FINDINGS: Beam hardening and streak candace [...] Rapid, V Symptomatic (11/12/2021 3:44 AM CDT) [facility] Method Time Signature SARS CoV-2, Detected (A) Undetected 11/12/2021 [facility] PCR, Rapid, V 4:20 AM CDT Comment: ----ADDITIONAL INFORMATION---- This RT-PCR test was performed using the Daniel SARS-CoV-2 and Influenza A/B Reagent assay from [employer], which has received Emergency Use Authori zation(EUA) by the U.S. Food and Drug Administration . Fact sheets for this Emergency Use Autho rization (EUA) assay can be found at the following link s: For Healthcare Providers: https://www.fda.gov/media/192466/downloa d For Patients: https://www.fda.gov/media/168417/downloa d SARS Coronavirus 2, Source, Rapid Swab, Nasopharynx 11/12/2021 3:48 AM CDT [facility] Specimen Anatomical Collection Method Collection Time Receive d Time (Source) Location / / Volume Laterality Varies 11/12/2021 3:44 AM 3:48 (Nasopharynx) CDT AM CDT Rosaura Sevilla M.D., M.P.H. LAB MICROBIOLOGY - GENERA L ORDERABLES Performing Organization Address City/State/ZIP Code Phon e Number [facility] - [address] [place], [place] [address] [facility] [place] [address] Laboratories-[facility] [address] Peripheral Venous Access (11/12/2021 [...] LAB BLOOD NON ADD-ON Performing Organization Address City/[facility]/ZIP Code Phon e Number [facility] - [address] [place], [place] [address] [facility] [place] [address] [facility] [address] Venous Blood Gas and [...] POCT ORDERABLES - DEVICE Performing Organization Address City/[facility] Phon e Number [facility] - [address] [place], [place] [address] [facility] [place] [address] [facility] [address] [facility] (ABNORMAL) APTT (Activated Partial Thromboplastin Time) (11/12/2021 1:54 AM CDT) P athologist Signature Activated 42 (H) 25 - 37 11/12/2021 [facility] Partial sec 2:16 AM CDT Thrombopl Time, P Specimen Anatomical Collection Method Collection Time Receive d Time (Source) Location / / Volume Laterality Blood (Blood, 11/12/2021 1:54 AM 11/13/19 1:59 Venous) CDT AM CDT Authorizing Provider Result Woodrow Oswald M.D. LAB BLOOD ADD-ON Performing Organization Address City/[facility] Phon e Number [facility] - [address] [place], [place] [address] [facility] [place] [address] [facility] [address] S-TSH (Thyroid-Stimulating Hormone - Sensitive) (11/12/2021 1:54 AM CDT) P athologist Signature TSH, Sensitive 3.3 0.3 - 4.2 11/12/2021 DTL mIU/L 3:15 AM CDT Specimen Anatomical Collection Method Collection Time Receive d Time (Source) Location / / Volume Laterality Blood (Blood, 11/12/2021 1:54 AM 11/13/19 2:40 Venous) CDT AM CDT Authorizing Provider Result Woodrow Oswald M.D. LAB BLOOD ADD-ON Performing Organization Address City/State/ZIP Code Phon e Number [facility] - [address] [place], [place] [address] [facility] [place] [address] Laboratories-[facility] [address] [place] Liver Doppler (11/09/2021 10:04 PM CDT) [...] LI-RADS is supported and endorsed by the [employer]. More information can be found on the [employer] link: https://www.acr.org/Clinical-Resources/Groghxrmm-ofu-Vzzm-Systems/LI-RADS/Ultras uydp-RP-JFBH-v2017 Procedure Note [place] Jenkins M.D. - 11/10/2021 [...] LI-RADS is supported and endorsed by the [employer]. More information can be found on the [employer] link: https://www.acr.org/Clinical-Resources/Isbaouhgx-nbg-Uqyu-Systems/LI-RADS/Ultras eirs-WX-PMXA-v2017 IMPRESSION: 1. Cirrhotic morphology of the liver wit hout suspicious focal hepatic lesions. LI-RADS 1B. 2. Hepatic arterial and venous vasculatu re is patent with antegrade flow. Elevated main hepatic artery velocities. 3. Moderate volume ascites. Dina COOLG US PROCEDURES AFP (Alpha-Fetoprotein), Tumor Marker (11/09/2021 7:09 PM CDT) athologist Signature Alpha-Fetoprote 6.4 ng/mL 11/10/2021 SDSC in, Tumor 3:04 PM CDT Marker, S [...] method is an immunoenzymatic assay manufactured by [employer]. and is tested on the [employer] DxI 800. Values obtained with different assay [...] Address City/State/ZIP Code Phon e Number [facility] [address] [place], [place] [address] [facility] [place] [address] Laboratory Medicine and Pathology [address] [place] from Last 3 Months Insurance Payer Benefit Plan / Subscriber ID Effective Phone Address T ype Group Dates [employer] [facility] CARE [id number] 2018-Prese [address] [address] Medicaid O [facility] RESTRICTED [place] [id number] ([address]) [address] [place] [phone] Advance Directives For more information, please contact: [phone] Latest Code Status on File Code Status Date Activated Date Inactivated Comments Full Code 01/21/2022 6:06 AM 01/29/2022 2:06 PM Full Code: Discussed Full Code 01/09/2022 3:35 PM 01/14/2022 7:53 PM Full Code: Discussed discussed with derik hernández decision maker Full Code 11/12/2021 6:52 AM 11/26/2021 3:46 PM Full Code: Not Discussed Due to: Patient does not have the capacity Full Code 11/09/2021 5:51 PM 11/11/2021 4:25 PM Full Code: Not Discussed Due to: Not medically appropriate Full Code 07/26/2021 8:32 AM 07/27/2021 5:44 PM Full Code: Discussed Care Teams Mechatronics Technician Relationship Specialty Start Date End Date Ana Red P.A.-C. PCP - General Internal Medicine 12/01/[address] [place] [address] [place] [phone] [facility] [place] [facility] 08/25/21 Ervin Schroeder MD Referring Provider Family Medicine 03/24/[address] [place] [address] [place] [id number]
--- OUTSIDE RECORDS SUMMARY | 2022-01-31 04:20 | XMS_ITS | Encounter Summary ---
:1990 Author Organization [facility] Address [address] [place] [address] Care Team Providers Name Role Phone Ana Red P.A.-C. Primary Care Provider [phone] Encounter Details Date Type Department Care Team Description 01/30/2022 Orders Only RST HIM Sara Gracia R, [address] [place] [phone] [place] [phone] (Wo rk) Social History Tobacco Use Types [...] do you attend sabianism or Never 2021 protestant services? Do you [...] or the highest technical, or vocational p [facility] degree you have received? 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 [address] [place] [phone] Surgery Gastroenterology and Matthew Jerome ESOPHAG OGASTRODUODENOSCOPY 2 Hepatology Joshua RodriguezBSumaBGraeme, Lilian [address] [place] [address] Telemedicine Transplant 2 Lab Laboratory Medicine Karin, 2 Adeline Gannon M.D., Ph.D. [address] [place] [phone] Lab Laboratory Medicine Karin, 2 Adeline Gannon M.D., Ph.D. [address] [place] [phone] Office Visit Transplant Karin, 2 Adeline Gannon M.D., Ph.D. [address] [place] [phone] Appointment Radiology Matthew Jerome 2 M.B.B.SSuma, Lilian [address] [place] [address] Appointment Gastroenterology and Adrianne, 2 Hepatology Yue Burciaga M.D. [address] [place] [phone] Office Visit Gastroenterology and Matthew Jerome 2 Hepatology Elizabeth Rodriguez.B.B.SSuma, Lilian [facility]5 [place] [phone] Appointment Radiology Matthew Jerome 2 YTyrell M.D. [address] [place] [phone] Scheduled Procedures Name Priority Associated Diagnoses Date/Time ESOPHAGOGASTRODUODENOSCOPY Cirrhosis Alc oholic (HCC) 02/10/2022 8:45 AM CDT Hypertension Portal (HCC) documented as of this encounter Visit Diagnoses Not on filedocumented in this encounter Additional Health Concerns Assessment Noted Time PHQ-9 Depression Total Score: 10/06/2021 5:00 PM CD T documented as of this encounter Care Teams Field Installation Technician Relationship Specialty Start Date End Date Ana Red P.A.-C. PCP - General Internal Medicine 12/01/[address] [place] [phone] [facility]- [place] lab 08/25/21 Ervin Schroeder MD Referring Provider Family Medicine 03/24/[address] [place] [phone] documented as of this encounter
--- OUTSIDE RECORDS SUMMARY | 2022-01-31 04:20 | XMS_ITS | Encounter Summary ---
:1990 Author Organization [facility] Address [address] [place] [address] Care Team Providers Name Role Phone Ana Red P.A.-C. Primary Care Provider [phone] Reason for Visit Reason Comments Post Hospital Follow-up Encounter Details Date Type Department Care Team Description 01/30/2022 Clinical Department of Parris Adrian [facility] meagan Communication Community Internal A, R.N. Follow-up Medicine in [address] [place] [phone] [place] [address] [place], [place] (Work) [phone] Social History Tobacco Use [...] do you attend yarsanism or Never 2021 jew services? Do you belong to any clubs or No 07/17/2021 organizations such as yarsanism groups, unions, fraMobileMD or athletic groups, or school groups? 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 - 01/30/2022 7:50 AM CDT Catia Carias is not eligible for the Adult Medical Care Coordination Program. Patient was dismissed from the hospital on 01/29/22 at 1201. documented in this encounter Plan of Treatment Upcoming Encounters Date Type Specialty Care Team Description Office Visit [facility], 2 Medicine Vernell Perez [address] [place] [phone] Appointment Radiology Matthew Jerome 2 Y, M.B.B.SSuma, MJules [address] [place] [phone] Hospital Gastroenterology and Queenie Matthew 2 Encounter Hepatology Jennifer M.B.B.SSuma, Lilian [address] [place] [phone] Surgery Gastroenterology and Matthew Jerome ESOPHAG OGASTRODUODENOSCOPY 2 Hepatology Jennifer M.B.B.SSuma, Lilian [address] [place] [phone] Telemedicine Transplant 2 Lab Laboratory Medicine Karin, Olinda Gannon M.D., Ph.D. [address] [place] [phone] Lab Laboratory Medicine Olinda Frazier M.D., Ph.D. [address] [place] [phone] Office Visit Transplant Olinda Frazier M.D., Ph.D. [address] [place] [phone] Appointment Radiology Matthew Jerome 2 Y, M.B.B.SSuma, MJules [address] [place] [phone] Appointment Gastroenterology and Adrianne, 2 Hepatology Yue Burciaga M.D. [address] [place] [phone] Office Visit Gastroenterology and Matthew Jermoe 2 Hepatology Tyrell Rodriguez M.D. 10[address] [place] [phone] Appointment Radiology LuisMatthew abdul 2 Tyrell Rodriguez M.D. [address] [place] [phone] Scheduled Procedures Name Priority Associated Diagnoses Date/Time ESOPHAGOGASTRODUODENOSCOPY Cirrhosis Alc oholic (HCC) 02/10/2022 8:45 AM CDT Hypertension Portal (HCC) documented as of this encounter Procedures Procedure Name Priority Date/Time Associated Diagnosis Comme nts EXT THINPREP SCREEN Routine 02/28/2014 Results for this procedure are i n the results section . documented in this encounter Results EXT ThinPrep Screen (02/28/2014) [facility] gist Method Time Signature EXT ThinPrep Normal - Normal - See Screen See Scanned Scanned Report for Report for Details Details, HIMS - Report Received and Scanned Comment: See Care Everywhere for Results Specimen (Source) Anatomical Location Collection Method / Collectio n Time Received Time / Laterality Volume Thin Prep Vial 02/28/2014 (Cervix/Endocervi x) Impressions Jinny Christensen - 03/05/2014 9:07 AM PUBLIC SPEAKING COACH Resulting Agency [facility] Specimen Collected: 02/28/14 14:36 Last Resulted: 03/05/14 09:07 Received From: [employer] [facility] Result Received: 11/29/18 11:58 Historical Provider LAB PAP PATHDX ORDERABLES documented in this encounter Visit Diagnoses Not on filedocumented in this encounter Additional Health Concerns Assessment Noted Time PHQ-9 Depression Total Score: 10 10/06/2021 5:00 PM CD T documented as of this encounter Care Teams Prize Jacker Relationship Specialty Start Date End Date Ana Red P.A.-C. PCP - General Internal Medicine 12/01/[address] [place] [address] BAYADI WRIGHT [phone] [facility] 08/25/21 Ervin Schroeder MD Referring Provider Family Medicine 03/24/[address] [place] [address] [place] [phone] documented as of this encounter
[2022-01-31 04:21] LABS: Lactate* 1.8 mmol/L (0.5-1.9)
--- OUTSIDE RECORDS SUMMARY | 2022-01-31 04:21 | XMS_ITS | Encounter Summary ---
:[address] [facility] Address [address] [place] [address] Care Team Providers Name Role Phone Ana Red P.A.-C. Primary Care Provider [phone] Reason for Visit Transplant (Routine) - Authorized Specialty Diagnoses / Procedures Referred By Contact Refer red To Contact Transplant Surgery / Matthew Jerome [facility] Transplant M.B.BLilian Bedolla [address] [place] [phone] Referral ID Status Reason Start Date Expiration Date Visits V isits Requested Authorized [id number] Authorized 10/27/2021 10/27/2022 1 1 Encounter Details Date Type Department Care Team Description 01/28/2022 Virtual Visit Matthew Valenzuela Can celed (Patient: Center for M.B.BSumaSLilian Moise Hospitalized / ill) Transplantation and [address] [place] [address] in [place], [place] [phone] [place] [address] [place] [phone] (Work) [phone] Social History Tobacco Use Types Packs/Day Years [...] do you attend buddhism or Never 2021 pentecostalism services? 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 encounter Plan of Treatment Upcoming Encounters Date Type Specialty Care Team Description Office Visit Community Internal Deanovic, 2 Medicine Vernell Perez [address] [facility] [place] [phone] Appointment Radiology Matthew Jerome 2 Y, M.B.B.SSuma, Lilian [address] [place] [phone] Hospital Gastroenterology and [facility], Matthew 2 Encounter Hepatology YJoshuaBSumaBGraeme, Lilian [address] [place] [phone] Surgery Gastroenterology and [facility] ESOPHAG OGASTRODUODENOSCOPY 2 Hepatology Y M.B.BGraeme, Lilian [address] [place] [phone] Telemedicine Transplant 2 Lab Laboratory Medicine Karin, 2 Adeline Gannon M.D., Ph.D. [address] [place] [phone] Lab Laboratory Medicine Karin, 2 Adeline Gannon M.D., Ph.D. [address] [place] [phone] Office Visit Transplant Karin, Olinda Gannon M.D., Ph.D. [address] [place] [phone] Appointment Radiology Matthew Jerome 2 Y, M.B.B.SSuma, Lilian [address] [place] [phone] Appointment Gastroenterology and Adrianne, 2 Hepatology Yue Burciaga M.D. [address] [place] [phone] Office Visit Gastroenterology and Matthew Jerome 2 Hepatology Tyrell Rodriguez M.D. [address] [place] [phone] Appointment Radiology LuisMatthew abdul 2 YTyrell M.D. [address] [place] [phone] Scheduled Procedures Name Priority Associated Diagnoses Date/Time ESOPHAGOGASTRODUODENOSCOPY Cirrhosis Alc oholic (HCC) 02/10/2022 8:45 AM CDT Hypertension Portal (HCC) documented as of this encounter Visit Diagnoses Not on filedocumented in this encounter Additional Health Concerns Assessment Noted Time PHQ-9 Depression Total Score: 10 10/06/2021 5:00 PM CD T documented as of this encounter Care Teams Women'S Studies Lecturer Relationship Specialty Start Date End Date Ana Red P.A.-C. PCP - General Internal Medicine 12/01/[address] [place] [phone] [facility] [place] [facility] 08/25/21 Ervin Schroeder MD Referring Provider Family Medicine 03/24/[address] [place] [phone] documented as of this encounter
--- OUTSIDE RECORDS SUMMARY | 2022-01-31 04:21 | XMS_ITS | Encounter Summary ---
:1990 Author Organization [facility] Address [address] [place] [address] Care Team Providers Name Role Phone Ana Red P.A.-C. Primary Care Provider [phone] Encounter Details Date Type Department Care Team Description 01/27/2022 Orders Only Pharmacy Prior Auth LARRY Lanier Evi K [phone] Social History Tobacco Use Types Packs/Day Years [...] do you attend druze or Never 2021 anabaptism services? 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 documented as of this encounter Plan of Treatment Upcoming Encounters Date Type Specialty Care Team Description Office Visit [facility], 2 Medicine Vernell Perez [address] [place] [phone] Appointment Radiology Matthew Jerome 2 Tyrell Rodriguez, MJules [address] [place] [phone] Hospital Gastroenterology and Matthew Jerome 2 Encounter Hepatology Tyrell Rodriguez, Lilian [address] [place] [phone] Surgery Gastroenterology and Matthew Jerome ESOPHAG OGASTRODUODENOSCOPY 2 Hepatology Joshua RodriguezBSumaBLilian Bedolla [address] [place] [address] Telemedicine Transplant 2 Lab Laboratory Medicine Karin, 2 Adeline Gannon M.D., Ph.D. [address] [place] [phone] Lab Laboratory Medicine Karin, 2 Adeline Gannon M.D., Ph.D. [address] [place] [phone] Office Visit Transplant Karin, 2 Adeline Gannon M.D., Ph.D. [address] [place] [phone] Appointment Radiology Matthew Jerome 2 YElizabeth.B.B.SSuma, Lilian [address] [place] [phone] Appointment Gastroenterology and Adrian[place], 2 Hepatology Yue Burciaga M.D. [address] [place] [phone] Office Visit Gastroenterology and Matthew Jerome 2 Hepatology Elizabeth Rodriguez.B.B.SLilian Moise [address] [place] [phone] Appointment Radiology Matthew Jerome 2 Y M.B.B.SLilian Moise [address] [place] [phone] Scheduled Procedures Name Priority Associated Diagnoses Date/Time ESOPHAGOGASTRODUODENOSCOPY Cirrhosis Alc oholic (HCC) 02/10/2022 8:45 AM CDT Hypertension Portal (HCC) documented as of this encounter Visit Diagnoses Not on filedocumented in this encounter Additional Health Concerns Assessment Noted Time PHQ-9 Depression Total Score: 10/06/2021 5:00 PM CD T documented as of this encounter Care Teams Greaser And Oiler Relationship Specialty Start Date End Date Ana Red P.A.-C. PCP - General Internal Medicine 12/01/[address] [place] [phone] [facility]- [place] lab 08/25/21 Ervin Schroeder MD Referring Provider Family Medicine 03/24/[address] [place] [phone] documented as of this encounter
--- OUTSIDE RECORDS SUMMARY | 2022-01-31 04:21 | XMS_ITS | Encounter Summary ---
:1990 Author Organization [facility] Address [address] [place] [address] Care Team Providers Name Role Phone Ana Red P.A.-C. Primary Care Provider [phone] Encounter Details Date Type Department Care Team Description 01/26/2022 Orders Only Pharmacy Prior Nicole Dacosta [phone] Social History Tobacco Use Types Packs/Day Years [...] do you attend spiritism or Never 2021 samaritan services? Do you [...] highest level of school Associate degree: ruth braker, 07/16/2021 you have completed or the highest technical, or vocational p rolf degree you have received? 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[employer] documented as of this encounter Plan of Treatment Upcoming Encounters Date Type Specialty Care Team Description Office Visit [facility] Internal [facility], 2 Medicine Vernell Perez [address] [place] [phone] Appointment Radiology Matthew Jerome 2 Tyrell Rodriguez, MJules [address] [place] [phone] Hospital Gastroenterology and Matthew Jerome 2 Encounter Hepatology Tyrell Rodriguez, Lilian [address] [place] [phone] Surgery Gastroenterology and Matthew Jerome ESOPHAG OGASTRODUODENOSCOPY 2 Hepatology Joshua RodriguezBSumaBLilian Bedolla [address] [place] [address] Telemedicine Transplant 2 Lab Laboratory Medicine Karin, 2 Adeline Gannon M.D., Ph.D. [address] [place] [phone] Lab Laboratory Medicine Karin, 2 Adeline Gnanon M.D., Ph.D. [address] [place] [phone] Office Visit Transplant Karin, 2 Adeline Gannon M.D., Ph.D. [address] [place] [phone] Appointment Radiology Matthew Jerome 2 YElizabeth.B.B.SSuma, Lilian [address] [place] [phone] Appointment Gastroenterology and Adrianne, 2 Hepatology Yue Burciaga M.D. [address] [place] [phone] Office Visit Gastroenterology and Matthew Jerome 2 Hepatology Elizabeth Rodriguez.B.B.SLilian Moise [address] [place] [phone] Appointment Radiology Matthew Jerome 2 Y M.B.B.SLilian Moise [address] [place] [phone] Scheduled Procedures Name Priority Associated Diagnoses Date/Time ESOPHAGOGASTRODUODENOSCOPY Cirrhosis Alc oholic (HCC) 02/10/2022 8:45 AM CDT Hypertension Portal (HCC) documented as of this encounter Visit Diagnoses Not on filedocumented in this encounter Additional Health Concerns Assessment Noted Time PHQ-9 Depression Total Score: 10/06/2021 5:00 PM CD T documented as of this encounter Care Teams Backup Operator Relationship Specialty Start Date End Date Ana Red P.A.-C. PCP - General Internal Medicine 12/01/[address] [place] [phone] [facility]- [place] lab 08/25/21 Ervin Schroeder MD Referring Provider Family Medicine 03/24/[address] [place] [phone] documented as of this encounter
--- OUTSIDE RECORDS SUMMARY | 2022-01-31 04:21 | XMS_ITS | Encounter Summary ---
:1990 Author Organization [facility] Address [address] [place] [address] Care Team Providers Name Role Phone Ana Red P.A.-C. Primary Care Provider [phone] Encounter Details Date Type Department Care Team Description 01/26/2022 Ancillary Procedure Department of Gastroenterology Social History Tobacco Use Types Packs/Day Years [...] do you attend jewish or Never 2021 adventist services? 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 [address] [place] [phone] Hospital Gastroenterology and Matthew Jerome 2 Encounter Hepatology Tyrell Rodriguez M.D. [address] [place] [phone] Surgery Gastroenterology and Matthew Jerome ESOPHAG OGASTRODUODENOSCOPY 2 Hepatology Vik RodriguezB.SLilian Moise [facility] [place] [address] Telemedicine Transplant 2 Lab Laboratory Medicine Karin, 2 Adeline Gannon M.D., Ph.D. [address] [place] [phone] Lab Laboratory Medicine Karin, 2 Adeline Gannon M.D., Ph.D. [address] [place] [phone] Office Visit Transplant Karin, Olinda Gannon M.D., Ph.D. [address] [place] [phone] Appointment Radiology Matthew Jerome 2 YElizabeth.B.B.SSuma, Lilian [address] [place] [phone] Appointment GastroenterMorenita 2 Hepatology Yue Burciaga M.D. [address] [place] [phone] Office Visit Gastroenterology and Matthew Jerome 2 Hepatology Elizabeth Rodriguez.B.B.SLilian Moise [address] [place] [phone] Appointment Radiology Matthew Jerome 2 Y M.B.B.SLilian Moise [address] [place] [phone] Scheduled Procedures Name Priority Associated Diagnoses Date/Time ESOPHAGOGASTRODUODENOSCOPY Cirrhosis Alc oholic (HCC) 02/10/2022 8:45 AM CDT Hypertension Portal (HCC) documented as of this encounter Procedures Procedure Name Priority Date/Time Associated Comments Diagnosis GASTROENTEROLOGY IMAGE Routine 01/26/2022 3:20 Re sults for this EXAM PM CDT procedure are i n the results section. documented in this encounter Results Upper GI endoscopy-Gastroenterology Image Exam (01/26/2022 3:20 PM CDT) Specimen (Source) Anatomical Location Collection Method / Collectio n Time Received Time / Laterality Volume Narrative IIMS - 01/26/2022 10:57 PM CDT This order [...] documented as of this encounter Care Teams Transitional Care Liaison Relationship Specialty Start Date End Date Ana Red P.A.-C. PCP - General Internal Medicine 12/01/[address] [place] [phone] [facility]- [place] lab 08/25/21 Ervin Schroeder MD Referring Provider Family Medicine 03/24/[address] [place] [phone] documented as of this encounter
--- OUTSIDE RECORDS SUMMARY | 2022-01-31 04:21 | XMS_ITS | Encounter Summary ---
:1990 Author Organization [facility] Address [address] [place] [address] Care Team Providers Name Role Phone Ana Red P.A.-C. Primary Care Provider [phone] Reason for Visit Reason Comments Rx Prior Authorization ASHLEY DENIED - LIDOCAINE 5% PAT CH Encounter Details Date Type Department Care Team Description 01/26/2022 Clinical Communication Pharmacy Prior Auth Christopher, Rx Prior RO Nicole A Authorization (ASHLEY [phone] DENIED - LIDOCA INE 5% PATCH) Social History Tobacco Use Types Packs/Day Years [...] do you attend shinto or Never 2021 mormon services? Do you belong to any clubs or No 07/17/2021 organizations such as shinto groups, unions, [employer]ianjin [employer] or athletic groups, or school groups? 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 button. PLEASE NOTE: If the ???Release Rx?? button is not visible, the Rx has already been released to the pharmacy. If you have questions, please reply via QuickNote to Shanita AN. Thank you, The [facility]PP[facility] Team documented in this encounter Plan of Treatment Upcoming Encounters Date Type Specialty Care Team Description Office Visit [facility], 2 Medicine Vernell Perez [address] [place] [address] [phone] Appointment Radiology [facility] 2 YJoshuaBSumaB.Kath, MJules [address] [place] [address] [phone] Hospital Gastroenterology and [facility] 2 Encounter Hepatology Tyrell Rodriguez, MJules [address] [place] [phone] Surgery Gastroenterology and [facility] ESOPHAG OGASTRODUODENOSCOPY 2 Hepatology Joshua RodriguezBSumaBGraeme, MJules [address] [place] [phone] Telemedicine Transplant 2 Lab Laboratory Medicine Karin, 2 Adeline Gannon M.D., Ph.D. [address] [place] [address] [phone] Lab Laboratory Medicine Olinda Frazier M.D., Ph.D. [address] [place] [address] [phone] Office Visit Transplant Karin, 2 Adeline Gannon M.D., Ph.D. [address] [place] [phone] Appointment Radiology Matthew Jerome 2 YElizabeth.B.B.SSuma, Lilian [address] [place] [phone] Appointment Gastroenterology and Adrianne, 2 Hepatology Yue Burciaga M.D. [address] [place] [address] [phone] Office Visit Gastroenterology and Matthew Jerome 2 Hepatology Joshua RodriguezB.B.SLilian Moise [address] [place] [phone] Appointment Radiology Matthew Jerome 2 Y M.B.B.SSuma, Lilian [address] [place] [phone] Scheduled Procedures Name Priority Associated Diagnoses Date/Time ESOPHAGOGASTRODUODENOSCOPY Cirrhosis Alc oholic (HCC) 02/10/2022 8:45 AM CDT Hypertension Portal (HCC) documented as of this encounter Visit Diagnoses Not on filedocumented in this encounter Additional Health Concerns Assessment Noted Time PHQ-9 Depression Total Score: 10 10/06/2021 5:00 PM CD T documented as of this encounter Care Teams Manufacturing Finance Manager Relationship Specialty Start Date End Date Ana Red P.A.-C. PCP - General Internal Medicine 12/01/[address] [place] [phone] [facility]- [facility] 08/25/21 Ervin Schroeder MD Referring Provider Family Medicine 03/24/[address] [place] [phone] documented as of this encounter
--- OUTSIDE RECORDS SUMMARY | 2022-01-31 04:21 | XMS_ITS | Encounter Summary ---
:1990 Author Organization [facility] [place] Address [address] [place] [address] Care Team Providers Name Role Phone Ana Red P.A.-C. Primary Care Provider [phone] Reason for Visit Reason Comments Pre-visit Testing Orders Encounter Details Date Type Department Care Team Description 01/28/2022 Clinical RST Yue Hung Pre-visit Testing Communication [address] [place] [address] Lilian Burciaga Orders [place], [place] [address] [place] [phone] [place] [phone] Social History Tobacco Use Types Packs/Day Years [...] do you attend episcopalian or Never 2021 orthodoxy services? 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 [facility] [place] [phone] Telemedicine Transplant 2 Lab Laboratory Medicine Karin, 2 Adeline Gannon M.D., Ph.D. [address] [place] [phone] Lab Laboratory Medicine Karin, 2 Adeline Gannon M.D., Ph.D. [address] [place] [phone] Office Visit Transplant Karin, 2 Adeline Gannon M.D., Ph.D. [address] [place] [phone] Appointment Radiology Matthew Jerome 2 Vik RodriguezBLilian Bedolla [address] [place] [address] Appointment Gastroenterology and Adrianne, 2 Hepatology Yue Burciaga M.D. [address] [place] [phone] Office Visit Gastroenterology and Matthew Jerome 2 Hepatology Vik RodriguezBLilian Bedolla [facility] [place] [address] Appointment Radiology Matthew Jerome 2, M.B.B.S., M.D. [facility] [place] [address] Scheduled Procedures Name Priority Associated Diagnoses Date/Time ESOPHAGOGASTRODUODENOSCOPY Cirrhosis Alc oholic (HCC) 02/10/2022 8:45 AM CDT Hypertension Portal (HCC) documented as of this encounter Visit Diagnoses Not on filedocumented in this encounter Additional Health Concerns Assessment Noted Time PHQ-9 Depression Total Score: 10/06/2021 5:00 PM CD T documented as of this encounter Care Teams Crackling Press Operator Relationship Specialty Start Date End Date Ana Red P.A.-C. PCP - General Internal Medicine 12/01/[address] [place] [phone] [facility]- [place] lab 08/25/21 Ervin Schroeder MD Referring Provider Family Medicine 03/24/[address] [place] [phone] documented as of this encounter
--- OUTSIDE RECORDS SUMMARY | 2022-01-31 04:21 | XMS_ITS | Encounter Summary ---
:1990 Author Organization [facility] Address [address] [place] [address] Care Team Providers Name Role Phone Ana Red P.A.-C. Primary Care Provider Reason for Referral Outpatient (Routine) - Pending Review Specialty Diagnoses / Procedures Referred By Contact Refer red To Contact Diagnoses Cirrhosis Alcoholic (HCC) Hypertension Portal (HCC) Esophageal Varices Without Bleeding (HCC) Yue Silver M.D. [facility] Procedures EGD [address] [place] [phone] Referral ID Status Reason Start Date Expiration Date Visits V isits Requested Authorized [id number] Pending 01/28/2022 01/28/2023 1 1 Review Outpatient (Routine) - Authorized Specialty Diagnoses / Procedures Referred By Contact Refer red To Contact Diagnoses Cirrhosis Alcoholic (HCC) Ascites Hepatic Failure Unspecified Without Coma (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 (HCC) Gerda Hull M.D., M.S. [address] [place] [phone] Referral ID Status Reason Start Date Expiration Date Visits V isits Requested Authorized [id number] Authorized 01/27/2022 01/27/2023 1 1 Reason for Visit Reason Comments Abnormal Lab Liver patient Auth/Cert Specialty Diagnoses / Procedures Referred By Contact Refer red To Contact Diagnoses Cirrhosis Alcoholic (HCC) Failure Renal Acute (Acute Kidney Injury) (HCC) Ascites Alcohol Use Unspecified With Unspecified Alcohol Induced Disorder (HCC) Hepatic Failure Unspecified Without Coma (HCC) Procedures ED ADMIT Referral ID Status Reason Start Date Expiration Date Visits Requ ested Visits Authorized [id number] 1 1 Encounter Details Date Type Department Care Team Description 01/20/2022 - [facility] Cody Knight M.D. [address] [place] [phone] Failure Renal Acute (Acute Kidney Injury ) (HCC) (Primary Dx); 01/[facility] [address] [place] [address] [phone] Cirrhosis Alcoholic (HCC); [facility] [address] [place] [address] [phone] Alcohol Use Unspecified With Unspecified Alcohol Induced Disorder (HCC); Ervin Hamm M.D. [address] [place] [address] [phone] Ascites; Building, Fifth Hepatic Fail ure Unspecified Without Coma (HCC); Floor Hepatic Encephalopathy Witho ut Coma (HCC); [address] [place] [address] Debility [R53.81 (ICD-10-CM) ]; [place], [place] Decline Functi onal Status [R53.81 (ICD-10-CM)]; [phone] Thrombocytopenia (HCC); [phone] Ascites Chronic ; Cirrhosis Alcoh olic (HCC); Hypertension Po rtal (HCC); Abnormal Liver Function Test; Esophageal Vari sally Without Bleeding (HCC) Social History Tobacco Use Types Packs/Day Years [...] do you attend mandaen or Never 2021 nondenominational services? 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 - 01/29/2022 12:01 PM CDT I saw and evaluated Catia Carias today and provided counseling [id number] at bedside. I personally reviewed the discharge plan of care and coordinated with the team regarding the patient's hospitalsummary documentation and outpatient follow up. I personally spent over half of a total greater than30 minutes in counseling and coordination of care to facilitate the hospital discharge. #1 Cirrhosis Alcoholic (HCC) #2 Anemia #3 Ascites #4 Deficiency Coagulation Acquired (HCC) #5 Hypertension Portal (HCC) #6 Chronic Pain Syndrome #7 Failure Renal Acute (Acute Kidney Injury) (HCC) #8 Esophageal Varices Without Bleeding (HCC) Please refer to Yue Silver M.D.'s discharge summary note for additional details. It has been an honor to care for Catia Carias and we wish Ms. Carias well. Yue Silver M.D. - 01/29/2022 7:59 AM CDT DISCHARGE SUMMARY BRIEF OVERVIEW Hospital: [facility] Discharge Provider: Ervin Mazariegos M.D. Primary Team: [facility] Medicine 3 ([facility]) Primary Care Providers: Ana Red P.A.-C. (General) [address] [facility] [phone] Primary Care Provider Primary Care Provider Other Providers: None Admission Date: 01/20/2022 Discharge Date:01/29/2022 PRINCIPAL DIAGNOSIS Failure Renal Acute (Acute Kidney Injury) (HCC) SECONDARY DIAGNOSES Principal Problem: Failure Renal Acute (Acute Kidney Injury) (HCC) Active Problems: Cirrhosis Alcoholic (HCC) Anemia Ascites Deficiency Coagulation Acquired (HCC) Hypertension Portal (HCC) Chronic Pain Syndrome Esophageal Varices Without Bleeding (HCC) Resolved Problems: * No resolved hospital problems. * DISCHARGE DISPOSITION Home-Health Care [facility] [6] ACTIVE ISSUES REQUIRING FOLLOW UP Recommendations: -Please follow up with GI for transplant evaluation. -Please follow up with PCP regarding lasix and spironolactone dose and re- evaluation of kidney function. -Ask about hematology referral for your anemia -Please get repeat upper endoscopy in 4-6 weeks for another band ligation of your varices Reinitiation of home diuretic doses following MOSHE F/u kidney function Esophageal varices requiring repeat banding in 4-6 weeks Liver transplant workup/requirements None OUTPATIENT FOLLOW UP Scheduled Appointments 01/28/2022 10:00 AM TXP PRE LIVER RO[facility] 10 Transplant 01/28/2022 2:00 PM LAB 01 [facility] Laboratory Medicine 01/28/2022 2:20 PM LAB 01 [facility] Laboratory Medicine 01/28/2022 2:45 PM Matthew Jerome M.B.B.S., M.D. Gastroenterology and Hepatology 02/05/2022 3:15 PM ROCH 02 01 Radiology 02/10/2022 3:00 PM TXP PSYCHIATRY 01 [facility] Transplant 02/12/2022 9:20 AM LAB BLOOD [facility] Laboratory Medicine 02/12/2022 9:30 AM LAB URINE CONTAINER [facility] LO Laboratory Medicine 02/12/2022 11:00 AM TXP COUNSELOR 01 [facility] Transplant 02/18/2022 3:15 PM ROCH 02 01 Radiology For appointment details refer to your Patient Appointment Guide. TEST RESULTS PENDING AT DISCHARGE Pending Labs None DETAILS OF HOSPITAL STAY REASON FOR ADMISSION Cirrhosis Alcoholic (HCC) Failure Renal Acute (Acute Kidney Injury) (HCC) Ascites Alcohol Use Unspecified With Unspecified Alcohol Induced Disorder (HCC) Hepatic Failure Unspecified Without Coma (HCC) HOSPITAL COURSE Ms. Carias is a 31-year-old female with a past medical history of alcoholic cirrhosis complicated by refractory ascites, thrombocytopenia, coagulopathy, chronic anemia, and hepatic encephalopathy, who was admitted with upper quadrant abdominal pain, elevated creatinine, and an increased potassium levelmeasured in the outpatient setting. Paracentesis performed after ceftriaxone administration showed no evidence of SBP on 01/21, so she was reinitiated on prophylactic ciprofloxacin. Her Cr on admission was 1.31, so spironolactone and lasix were held. Cr improved after paracentesis, suggesting some component of compression contributing toAKI. Urine studies confirmed prerenal MOSHE as well, so fluid resuscitation was completed with albumin5%. On 01/26 she required IV Lasix 40mg x1 for evidence of hypervolemia and mild hyponatremia. Paracentesis on 01/27/2022 removed 4.1 L with albumin replacement. Her home diuretics were reintroduced at half doses on 01/28. Cr 0.55 EGD was completed on 01/24. Large varices without concerning features were identified. There was no active bleed. Unfortunately, there was liquid and food in her stomach despite having been NPO for 13 hours. She was sustained on a clear liquid diet over the weekend for repeat EGD on 01/26, given erythromycin for gastric motility 8h pre-procedure and 2 units FFP for INR 2.5 prior to EGD. EGD showed large non-bleeding varices that required banding x6. Throughout stay, lactulose was titrated for goal 2-4BM/day. She did not have hepatic encephalopathy. She was also started thiamine, folate, vitamin A, mag sulfate, zinc, and vitamin D. While hospitalized, her hemoglobin dropped to 6.0 several times, requiring total 3 units pRBCs. There was no evidence of bleeding. Her baseline chronic anemia is 7-7.5. Hgb drop may have had some component of dilution, since she received multiple boluses of albumin (1-1.5L each) and was somewhat hypervolemic by 01/26, with decreases in other cell lines as well. Iron studies were performed that showed significant elevations of ferritin and percent saturation with low TIBC; iron overload. There was some evidence of hemolysis, based on low haptoglobin, high indirect bili. However blood smear was without evidence of hemolysis, and LDH was normal, CIRILO normal. DIC panel showed evidence of impaired synthetic function but very elevated D-dimer (>3000). L flank induration and swelling was observed 01/28,suspicious for bleeding from paracentesis 01/27 versus extravasation of ascites. CT abdomen wo contrast 01/28 showed ascites, small pleural effusions, and fluid in L flank favored ascites. LE DVT US did not show DVT. She was held an additional day to monitor flank mass, associated pain, and Hgb. The cause of Hgb drop and elevated D Dimer is not certain, but Hgb was stable at 8.0 on 01/29. Her reticulocyte count was elevated but not adequately given the degree of her anemia.Her baseline anemia still considered to be of mixed etiology (cirrhosis, chronic disease, splenic sequestration and/or lysis), butrequires further evaluation as outpatient. Her chronic pain was managed with Flexeril 5mg, 1-2 doses daily PRN, lidocaine patch, voltaren gel, heat therapy. She required PO dilaudid 1mg, between 1-4 times daily in setting of ascites contributing to worsened back pain. She was extensively counseled that this would not be continued outpatient and would not be a reasonable long-term option for pain management, which she agrees wholeheartedly with. She is extremely motivated to take whatever steps necessary to be eligible for transplant, and is hopeful she can make the list as soon as possible. We discussed the mental health steps required, many of which she has been doing for months already, and she confirmed she will do everything required. She was discharged on Lasix 20mg and spironolactone 50mg daily (half of home doses), to be increased to full dose starting next week. Lactulose 10 g QID. She has paracentesis scheduled 02/05, will get repeat BMP at that time. Followup with transplant hepatology, PCP for MOSHE and anemia. Physical Exam - day of discharge Gen: chronically ill appearing young woman resting in bed HEENT: scleral icterus present. MMM. Card: RRR, prominent systolic flow murmur across precordium. Pulm: crackles at bilateral lung bases. Good airflow in middle and upper lung zarco. Normal WOB on RA Abd: distended, +ascites, L sided abdominal tenderness, semi-firm swelling on L flank stable from yesterday. Skin: jaundiced, spider angioma on chest, no palmar erythema Ext: pretibial pitting edema on R, 1+ pitting edema on L leg, increased from yesterday. NO erythema or tenderness. Vasc: 2+ radial and PT pulses To-Do: -Recheck BMP in 1 week - Reassess diuretic dose based on volume status and Cr - PCP to determine whether hematology referral warranted for chronic anemia, mixed etiology -Please repeat EGD in 4-6 weeks for repeat band ligation CONSULTS ORDERED DURING THIS ADMISSION IP CONSULT TO CARE MANAGEMENT IP CONSULT TO DIETITIAN Procedures Performed: Paracentesis 01/21, 01/27. EGD 01/23/ 01/26 Pertinent Diagnostic Results: Four columns of large (> 5 mm) varices with no bleeding and no stigmata of recent bleeding were found in the lower third of the esophagus, 30 to 36 cm from incisors. Red marcello signs were present. Six bands were successfully placed with incomplete eradication of varices.There was no bleeding at the end of the procedure.Diffuse portal hypertensive gastropathy found in the cardia, in the gastric fundus, and in the gastric body. No bleeding, no gastric varices. CONDITION AT DISCHARGE stable Discharge instructions were provided to the patient and caregiver(s). documented in this encounter Discharge Instructions Discharge InstructionsDoYue carvalho M.D. - 01/21/2022 6:45 AM CDT Recommendations: Liver -Take half your normal doses of lasix and spironolactone for the rest of this week. (20 mg lasix, 50mg spironolactone). Restart full dose on Friday 02/02 - Increase your dose of lactulose from 10g three times daily, to 10 g four times daily - Limit sodium (salt) in diet to 2000mg per day - Increase your protein intake - You have a repeat EGD scheduled Feb 27 for another band ligation of the esophageal varices (swollen veins) Transplant -Please follow up with GI for transplant evaluation - Appt 02/[address] Jerome - Ask transplant clinic for a manager social services or shoe parts caser - Continue weekly AA meetings. Find a sponsor - Complete steps listed in chemical dependency program binder - Ask clinic about making transplant psych appointment sooner than 3 months Kidneys - We will recheck your kidney function at your paracentesis appt on 02/05 - Take half dose of your diuretics the rest of this week, then full dose starting Wednesday PCP - Ask your PCP about hematology referral for your anemia - Recheck kidney function You were discharged from the [facility] Medicine 3 ([facility]) Service. Please identify this service name if you call with questions after hospitalization. [facility] experts agree: You should get a COVID-19 vaccine as soon as it's available to you. The vaccines that we???re recommending have been approved for safe use. [facility] will continue to coordinate with state and local governments on future vaccine distribution phases. o If your primary care provider is at [facility] and you plan to receive your vaccination at [facility], please ensure that you have activated your Patient Portal at [email or web address] to allow [facility] to communicate to you about the scheduling process. Practice social distancing, wear a mask properly outside your home, wash your hands frequently, andfollow your state and local recommendations until the spread has stopped. The vaccine may not be recommended to those with certain health conditions. Talk to your health care provider if you have questions about receiving the vaccine. Discharge Instr - Sweetie Hurley P.T., D.P.T. - 01/27/2022 1:59 PM CDT Physical Therapy Discharge Summary MOBILITY RESTRICTIONS/PRECAUTIONS: Other Precautions: Fall risk; spinal precautions for comfort; safety awareness CURRENT FUNCTIONAL STATUS: Bed Mobility-Supine to Sit # of Assistants: 0 Level of Assistance: Modified Independent Device: None Transfer-Sit to Stand # of Assistants: 1 Transfer Surface: Bed Transfer Equipment: Gait belt, Front wheeled walker Level of Assistance: Supervision/set-up Bed to Chair/Wheelchair Gait Assessment Distance (m): 5 m Surface: Even, Smooth/hard Device: Gait belt, Front-wheeled walker # of Assistants: 1 Level of Assistance: Supervision/Set-up, Contact guard assistance Quality/Pattern: Guarding, Shuffling, Decreased heel strike, Decreased toe off, Decreased base of support Assessment of Gait: Patient demonstrated decreased stride and step length with increased trunk flexion, downward gaze, decreased toe clearance bilaterally with decreased gait speed noted Cueing Provided: Tactile, Verbal Stairs RECOMMENDATIONS: Discharge Therapy Needs - PT: Ongoing skilled physical therapy (Continuation of home health care) Level of Care Needed - PT: Assistance with stairs, Physical assistance needed, Assistance with walking and moving around the home, Cognitive assistance needed Discharge information provided on 01/27/2022 Contact information: [facility], [address], documented in this encounter Medications at Time of Discharge Medication Sig Dispensed Refills Start Date End Date cholecalciferol 10 mcg Take 1 tablet (400 60 tablet 3 01/15 (400 Unit) tablet Units total) by mouth daily. ciprofloxacin (CIPRO) Take 1 tablet (500 60 tablet 2 2021 500 mg tablet mg total) by mouth every morning before breakfast. Take this medication 2 hours before or after you take your vitamins, in particular the magnesium and the zinc. diclofenac sodium Apply 2 g topically 20 g 0 2 (VOLTAREN) 1 % gel 4 (four) times a day. Apply to painful area on skin. furosemide (LASIX) 20 mg Take 1 tablet (20 mg 90 tablet 3 0 01/29/2022 01/29/2023 tabletIndications: total) by mouth Thrombocytopenia (HCC), daily. Return to Ascites Chronic, full 40mg dose on Cirrhosis Alcoholic Friday 02/02. (HCC), Hypertension Portal (HCC), Abnormal Liver Function Test lactulose (CHRONULAC) 20 Take 15 mL (10 g 5400 mL 3 01/2901/29/2023 gram/30 mL solution total) by mouth 4 (four) times a day. levonorgestreL (MIRENA) 1 each by 0 20 mcg/24 hours (7 yrs) intrauterine route 52 mg IUD continuously. Placed in 2014 lidocaine (LIDODERM) 5 % Place 1 patch on the 15 patch 3 0 01/14/2022 skin daily. Apply to painful area on back. magnesium oxide (MAG-OX) Take 1 tablet (400 60 tablet 1 06/2021 400 mg (241.3 mg mg total) by mouth 2 magnesium) tablet (two) times a day before breakfast and dinner. pantoprazole (PROTONIX) Take 1 tablet (40 mg 30 tablet 1 40 mg EC tablet total) by mouth every morning before breakfast. rifAXIMin (XIFAXAN) 550 Take 1 tablet (550 180 tablet 3 12/01 12/10/2022 mg tabletIndications: mg total) by mouth 2 Cirrhosis Alcoholic (two) times a day. (HCC), Hypertension Portal (HCC), Thrombocytopenia (HCC), Abnormal Liver Function Test, Hepatic Encephalopathy Without Coma (HCC) spironolactone Take 1 tablet (50 mg 60 tablet 2 01/29/2022 (ALDACTONE) 50 mg tablet total) by mouth daily. Return to full 100mg dose on Friday 02/02. thiamine (VITAMIN B1) Take 100 mg by mouth 0 100 mg tablet daily. traZODone (DESYREL) 50 Take 1 tablet (50 mg 30 tablet 1 mg tablet total) by mouth at bedtime. vitamin A 3,000 mcg Take 1 capsule 50 capsule 0 01/14/2022 0 05/09/2022 (10,000 Unit) (3,000 mcg total) by capsuleIndications: mouth 3 (three) Deficiency Vitamin A, times a week for 50 Cirrhosis Alcoholic doses. Wednesday, (HCC) Wednesday, Wednesday zinc sulfate (ZINCATE) Take 220 mg by mouth 0 08/2021 220 (50 mg zinc) capsule daily with breakfast. folic acid 1 mg tablet TAKE 1 TABLET BY 90 tablet 3 022 MOUTH DAILY cyclobenzaprine Take 1 tablet (5 mg 15 tablet 0 01/20/2022 01/30/2022 (FLEXERIL) 5 mg tablet total) by mouth daily as needed for muscle spasms. folic acid 1 mg tablet Take 1 mg by mouth 0 01/30/2022 daily. documented as of this encounter Progress Notes Nora Kelly, Pharm.D., R.Ph. - 01/29/2022 5:49 AM CDT Pharmacist Progress Note Reason for admission: acute renal failure 2/2 decompensated liver cirrhosis and refractory ascites PMH: alcoholic cirrhosis (undergoing transplant evaluation), GERD, chronic pancreatitis, rhinitis, HTN, anxiety OBJECTIVE Home medications: Held: acetaminophen, furosemide (decreased dose), spironolactone (decreased dose) Changed: cholecalciferol (increased dose), lactulose (increased based on bowel movements) Renal Status Estimated Creatinine Clearance: 116 mL/min (by C-G formula based on SCr of 0.71 mg/dL). Meds Renally adjusted: none VTE Prophylaxis: none d/t low platelet ASSESSMENT / PLAN Alcoholic cirrhosis w/ ascites: Recent hospitalization for hepatic encephalopathy and concern for GIbleed (01/09/2022). Most recent MELD-Na 28. Child Class C. Ceftriaxone transitioned back to prophylactic Cipro based on negative peritoneal fluid cultures and composition for SBP. Last paracentesis 01/27 (4.1 L). Restarted furosemide and spironolactone at lower dose d/t reduced kidney function (2:5 ratio). Anticoagulation factor panel shows factors below normal limits (except factor VIII). Continued lactulose and rifaximin (goal 2-3 bowel movements daily). Started thiamine, folate, vitamin A, mag oxide, zinc sulfate, and vitamin D. Copper x1 dose given 01/27. Pain: continued pain s/p banding during EGD. Patient developed left flank swelling and tenderness. Concern for hematoma. CT w/o contrast not suggestive of internal hemorrhage. D-dimer elevated. US LE negative. MOSHE: Stable SCr (baseline ~0.4 mg/dL). 01/28 Cystatin C 1.51 with eGFR 47. Medications evaluated for dosing adjustments based on current kidney function. Heme: Primary team considering heme curbside. Hemoglobin stable with history of pRBC transfusion during admission. Ferritin 564 with percent saturation >90%, possibly related to iron overload 2/2 blood transfusions. Elevated reticulocyte count (6.67%). Haptoglobin (<14). Anemia with unclear etiology but may be hemolytic. Nora Kelly Pharm.D., R.Ph. Yue Silver M.D. - 01/28/2022 3:15 PM CDT [facility] Medicine 3 ([facility]) PROGRESS NOTE SUBJECTIVE Christelle says she is not feeling well today - has L sided flank and abdominal pain that is worsening, with swelling (no overlying ecchymoses). No N/V. I have reviewed the current medication list. OBJECTIVE VITAL SIGNS Temperature: [36.7 ??C-37.6 ??C] 36.8 ??C Resp Rate: [14-18] 18 Blood Pressure: (114-125)/(48-64) 114/48 SpO2: [94 %-98 %] 98 % Height: [157.5 cm] 157.5 cm Weight: [64 kg] 64 kg BSA (Calculated - sq m): [1.67 sq meters] 1.67 sq meters BMI (Calculated): [25.8 kg/m??] 25.8 kg/m?? Pulse Rate: [98-105] 104 PHYSICAL EXAM GEN: jaundiced, ill-appearing. In no acute distress. A&Ox3 HEENT: Scleral icterus present. Moist mucous membranes. CARDS: Systolic flow murmur auscultated in the LUSB and RUSB, regular rate and rhythm. PULM: Clear to auscultation bilaterally, crackles at bilateral bases ABD: Distended with shifting dullness, ascites present. Bulging L flank, extension up to mid-thorax.TTP in L abdomen and flank INTEG: Jaundiced. No visible rashes, no palmar erythema MSK: No joint contractures or deformities. PV: Warm, well-perfused. 2+ pitting edema to shins NEURO: Moves all extremities spontaneously. No asterixis PSYCH: Appropriate, cooperative. DIAGNOSTICS I have personally reviewed the laboratory data and imaging since admission, and in/outs for past 72 hours. ASSESSMENT / PLAN Ms. Carias is hospitalized on [facility] 3 ([facility]) for evaluation and management of Failure Renal Acute (Acute Kidney Injury) (HCC). Briefly, she is a 31yo female with a history of alcoholic cirrhosis and refractory ascites who was admitted for an MOSHE. Hospitalization has been complicated by acute on chronic anemia of unknown etiology. # Multifactorial MOSHE # Decompensated Alcoholic Cirrhosis # Mild Hepatic Encephalopathy MELD-Na 28, Child Class C. MOSHE has improved greatly, Cr 0.71. Urine studies confirmed pre-renal withFeNa of 0.1%, so we gave additional 75g albumin for intravascular repletion on 01/24, 50g 01/25. Probably some component of compression from ascites, since Cr improved so significantly after paracentesis. Patient does not show signs of hepatic encephalopathy currently, though did earlier in the hospitalization. S/p EGD on 01/23 (food in stomach) and repeat on 01/26 for evaluation of varices. She requiredbanding x6 of 4 large non-bleeding varices. Plan: Continue lactulose and rifaximin Increased lactulose dose to 20mg QID Continue ciprofloxacin 500mg daily for SBP prophylaxis Spironolactone 50mg and lasix 20mg daily (half of home doses) Thiamine 100mg daily, Folate 1mg, Vit A 3mg 3x weekly, VitD 25 mcg, Mag sulfate 400mg BID, Zinc 220mg and Copper 4 mg IV # Acute on Chronic Anemia # Macrocytosis # Iron Overload Hemoglobin reached kenia of 6.0 on 01/22, requiring 1U pRBC with appropriate response. Had been stable mid-7s until 01/25, when it was 6.2, without any bleeding, 6.2 again on 01/26; 1U PRBC given both days. Likely some component of hemodilution--or rather, correction of hemoconcentration--since patient was intravascularly depleted and she received 1.5L with albumin yesterday, and other cell lines were decreased. However, this does not explain a two point Hgb drop, and in a patient with her degree of impaired coagulation, there is concern for bleeding. She has a fluid collection/flank swelling, which developed after the second paracentesis, that may represent hematoma. NO evidence of GI bleed. This macrocytic anemia is likely of mixed etiology, in the setting of liver cirrhosis, splenic sequestration +/- hemolysis, anemia of chronic disease, and possibly slow GI losses. Iron studies were conducted which indicated iron overload, s/p many blood transfusions. Ferritin was previously very elevated in 03/2021 as well, though this may be in relation to elevation as an acute phase reactant. Less likely iron storage disorder. Interestingly, past anemia evaluation also showed evidence of hemolysis(elevated LDH and indirect bili, low haptoglobin), but no evidence of autoimmune hemolytic anemia asof 2 months ago. CIRILO negative this hospitalization. Blood smears in July, August, and October have shown marked acanthocytes and few schistocytes. Blood smear 9/25/22: No morphologic features of hemolysisare seen. No schistocytes are seen. Reticulocytes have been elevated consistently, but not adequately elevated given degree of anemia. Trend CBC CT A/P w/o contrast today to evaluate for hematoma Curbsided heme - copper and zinc levels #Low Back Pain #Left flank swelling Increasing left flank swelling, soft, tender, without ecchymoses, which was first noted this morningafter paracentesis yesterday. Unclear cause, but it is causing significant discomfort and worsening her back pain. Consider hematoma after paracentesis vs. Extravasation of ascites, since it is more superficial and is contiguous above the level of the diaphragm. Flexeril 5mg up to twice daily PRN. Do not want to further increase dose due to liver impairment Lidocaine patch, diclofenac gel Heating pads Dilaudid 1mg q4h for severe pain #GERD Continue pantoprazole 40mg # Dispo - Please provide a [facility] home health order for resumption of previous services by home health care for alf once a week medication management on the After Visit Summary. If additional services are needed, please provide order. - Communicate with the patient???s local primary care provider by telephone for writing of home care orders. This needs to be done to help prevent discharge delays. A copy of the After Visit Summary needs to be sent there as well. Current Activity/Mobility: BMAT Level 4 (Able to stand and walk; needs staff assist if fall risk factors identified) Fall Injury Prevention: N/A - patient is not determined to be at risk of falling Diet: clear liquid diet Tubes/lines: PIV VTE prophylaxis: Held before EGD, now back on enoxaparin Disposition: Home with expected discharge date Plan discussed with [facility] Medicine 3 ([facility]) [employer] Clerk, Ervin Osorio M.D., who was present during judd portions of the evaluation today. Please page the T Medicine 3 ([facility]) service pager at [phone] with any questions. T Carlotta Rader RDN, LD - 01/28/2022 3:09 PM CDT Clinical Nutrition: Initial Assessment Clinical Nutrition was requested to evaluate patient for length of stay. SUBJECTIVE Ms. Carias is a 31 y.o. female admitted for MOSHE. Hx of alcoholic cirrhosis. Current Nutrition (since admission): Pt reports a good appetite. States she feels like she is eatingwell and she is trying to eat adequate protein. However, per review of meal time selections, meals are often quite light and do not always include a good protein source. RDN suggested supplements/smoothies. She is interested in trying a smoothie, RDN provided shake/smoothie and snack menus for patientto utilize PRN. She notes mechanical soft diet is related to upper GI endoscopy w/ banding that was performed yesterday. Nutrition history: Pt denies any issues with intake prior to admit. Follows a low sodium diet. Unable to obtain detailed diet hx as pt needed to use the bathroom, which limited today's visit. OBJECTIVE Current nutrition orders: Current Diet Adult Diet Mechanical Soft; 2,000 mg Na starting at 01/26 2316 Pertinent Labs: Noted zinc was checked 01/26 and was WNL Medications: vitamin D3, Vitamin A, zinc sulfate, lactulose, lasix, folic acid, spironolactone Anthropometrics: Height: 157.5 cm Admission Weight: 64 kg (01/20/2022) Current Weight: 64 kg BMI (Calculated): 25.8 kg/m?? Weight change since admission: 0 kg Weight Change History: Per EMR, 01/20 64.4 kg. 01/09 59 kg. 12/21 57.4 kg. 11/22 59.7 kg. 10/03 60.7 kg. 07/25 58.9 kg. She reports she has gained some weight back, after losing weight early this summer. Reports being back near her UBW. UBW appears to be ~58-59 kg. Currently 64 kg w/ +1 generalized, +1-2 BLE edema noted per supervisor [employer]. Estimated Needs: Total Calorie Needs: 6117-0222 calories/day Method to Estimate Energy Needs: Mueller-[place]cca (Basal to Basal + 20%) Weight Used for Equation Calculations: 64 kg Total Protein Needs: 71 - 89 grams/day (Method to Estimate Protein Needs (g/kg): 1.2 - 1.5 gm/kg) Weight Used to Calculate Protein Needs (Kg): 59 kg (UBW) Nutrition Diagnosis: Increased nutrient needs related to liver disease as evidenced by protein recommendations 1.2-1.5g/kg ASSESSMENT / PLAN Nutrition Intervention: Interventions: Vitamin and mineral supplements, Increase nutrient intake with small, frequent meals and/or snacks. Recommendations: Diet texture advancement per primary team discretion Consider addition of a multivitamin Pt to utilize shake/smoothie menu PRN to improve PO intake Monitoring/Evaluation: Nutrition parameter to monitor: Meals/Supplement Intake, Weight Status, Diet Progression/NPO Status,Fluid Balance Desired Outcome: maintain adequate nutrition intake Patient Goal(s): 1. Consume >/= 75% of meals TID For questions about patient's nutritional care please contact pager [phone] on weekdays or [phone] on weekends/holidays. Ervin Mazariegos M.D. - 01/28/2022 1:19 PM CDT [facility] Medicine 3 ([facility]) Supervisory Note I have seen and assessed the patient with the medical team and helped to formulate the plan of care.I have personally reviewed the relevant data in the patient's medical chart. I agree with the findings, assessment and plan as written in the note by Yue Silver M.D. dated 01/28/2022. # Decompensated Alcoholic Cirrhosis with ascites, MELD-Na 28, Child Class C # Hepatic Encephalopathy # MOSHE, resolved. # Acute on Chronic Anemia # Macrocytosis # Low back pain # GERD Catia Carias is a 31-year-old female with a medical history for alcoholic cirrhosis with refractory ascites, hepatic encephalopathy, chronic pancreatitis, GERD who was admitted to the hospital on 01/20 with acute kidney injury in the setting of abdominal pain and concern for SBP. This was ruled out after having had a paracentesis and she was transition back to ciprofloxacin for SBP prophylaxis. Shecontinues on rifaximin and lactulose for hepatic encephalopathy. Overall patient reports that she feels improved with the exception that she has some pain following banding yesterday on EGD. Cystatin-C slightly higher this AM. She underwent ultrasound-guided paracentesis for 4156 mL 01/28 and is receiving albumin. We are continuing with vitamin replacements and SBP p rophylaxis with Cipro daily. She has developed some swelling about her left flank and side which is tender. She does have ongoing back pain. We will pursue CT for further evaluation given her elevated D-dimer as well as ultrasound lower extremities to make sure she does not have a DVT. Disposition: Patient was admitted from home, anticipating discharge back to home with home health when medically stable. Please refer to Yue Silver M.D.'s note dated today for additional details about our team's planof care. Counseling was provided [id number] at bedside regarding the plan of care as stated above. I personally spent over half of a total 25 minutes in counseling and coordination of care as documented above. Sweetie Greer P.T., D.P.T. - 01/28/2022 10:00 AM CDT Physical Therapy Inpatient Treatment Note SUBJECTIVE Patient's Name: Catia Carias Referring/Attending: Ervin Mazariegos M.D. Medical Diagnosis: Cirrhosis Alcoholic (HCC) [K70.30] Failure Renal Acute (Acute Kidney Injury) (HCC) [N17.9] Ascites [R18.8] Alcohol Use Unspecified With Unspecified Alcohol Induced Disorder (HCC) [F10.99] Hepatic Failure Unspecified Without Coma (HCC) [K72.90] Reason for Referral: PT Evaluate and Treat general acute Onset Date: 01/20/22 Payor: [facility] [place] [facility] / Plan: [facility] [place] [facility] RESTRICTED PLAN / Product Type: Medicaid HMO / History of Present Illness: admitted due to acute renal failure secondary to decompensated liver cirrhosis; s/p EGD with 4 non-bleeding varices banded and paracentesis Family/Caregiver Present: No Patient/Caregiver Goals: Patient wishes to return home Patient Comments: Patient agreeable to physical therapy treatment session; patient ultimately endorsed fatigue and soreness but did not quantify on 10 point scale; agreeable to mobilize; thanked therapist at end of session for making her do it Precautions Other Precautions: Fall risk; spinal precautions for comfort; safety awareness OBJECTIVE Vitals monitored throughout session; within normal ranges. Treatment consisted of: Bed Mobility - Supine to Sit # of Assistants: 0 Level of Assistance: Modified Independent Device: Head of bed elevated Comments: Patient able to complete without physical assistance however did require increased time and effort Bed Mobility - Sit to Supine # of Assistants: 0 Level of Assistance: Modified Independent Device: Head of bed elevated Comments: Able to complete without physical assistance but with increased time and effort Sit to Stand Transfers # of Assistants: 0 Transfer Surface: Bed, Toilet/Commode Transfer Equipment: Gait belt, Front wheeled walker Level of Assistance: Modified Independent Assessment/Delivery: Assessed Comments: Demonstrated appropriate hand placement after single verbal cues; able to arise without physical assistance; improved sequencing of task throughout therapy session Stand to Sit Transfers # of Assistants: 0 Transfer Surface: Bed, Toilet/Commode Transfer Equipment: Gait belt, Front wheeled walker Level of Assistance: Modified independent Assessment/Delivery: Assessed Comments: Demonstrated appropriate hand placement without verbal cues; improved eccentric control compared to previous therapy session; does moves slowly but safely; no physical assistance required Toilet Transfers # of Assistants: 0 Transfer Surface: Commode Transfer Approach: To and from, Ambulating Transfer Equipment: Front wheeled walker Level of Assistance: Modified independent Assessment/Delivery: Assessed Toilet Transfers Comments: [id number] transfers as above; patient initially requesting therapist to assist with undergarment management, however with encouragement patient able to do so without physical assistance and with good stability with intermittent use of front wheeled walker for safety; ableto perform mike care independently in sitting Gait Assessment/Training Distance (m): 32.81 m Surface: Even, Smooth/hard Device: Gait belt, Front-wheeled walker # of Assistants: 0 Level of Assistance: Modified Independent Quality/Pattern: Guarding, Shuffling, Decreased heel strike, Decreased toe off, Decreased base of support Assessment of Gait: Patient demonstrated decreased stride and step length with increased trunk flexion, downward gaze, decreased toe clearance bilaterally with decreased gait speed noted Training/Intervention: No intervention required as this appears to be patient's baseline gait Response: Improved tolerance from yesterday; does fatigue with short distance ambulation however wasable to walk short household distances Stairs/Curb # Stairs: 3 Step Height (in): 7 in Curb Assessment: No Rails: 1 Device: Gait belt, No device # of Assistants: 1 Level of Assistance: Contact guard assistance Stair Navigation Pattern-Ascending: Side-step with unilateral rail Stair Navigation Lead Foot-Ascending: Right Stair Navigation Pattern-Descending: Side-step with unilateral rail Stair Navigation Lead Foot-Descending: Left Cueing Provided: Tactile Training/Intervention: Patient able to complete stair negotiation of 3 stairs; declined negotiating further stairs as she did not want to be fatigued prior to discharge home; able to complete with contact guard assistance with no evidence of instability Patient Education The patient/family educated on safe transfer techniques with functional mobility/activity. Discussed importance of continued, frequent mobility upon hospital discharge; encouraged patient to delineate times of the day where she is able to truly ambulate for exercise rather than just walking to/from bathroom/kitchen in her apartment. Patient very receptive to education this date and is looking forward to increasing her mobility. The following coordination of care occurred today: Patient's nurse was contacted and patient's status was discussed Inpatient AVS Complete - PT: Yes Inpatient AVS Completion Date - PT: 01/28/22 Patient was left in bed at end of session with call light in reach, all needs met and questions answered. Outcome Measures [facility] Inpatient Short Form: -[facility] Basic Mobility (V.2) How much help from another person do you currently need???If the patient hasn't done an activity recently, how much help from another person do you think he/she would need if he/she tried? 1. Turning from your back to your side while in a flat bed without using bedrails?: None 2. Moving from lying on your back to sitting on the side of a flat bed without using bedrails?: None 3. Moving to and from a bed to a chair (including a wheelchair)?: None 4. Standing up from a chair using your arms (e.g., wheelchair, or bedside chair)?: None 5. To walk in hospital room?: None 6. Climbing 3-5 steps with a railing?: A Little -[facility] Basic Mobility (V.2) Raw Score: 23 -[facility] Basic Mobility (V.2) Standardized Score: 50.88 Interpretation: Clinicians answer the -[facility] Inpatient Short Form based on observed patient activityand/or clinical judgement (ie. patient can be scored without physically performing each activity) Based on scoring guidelines using the raw score value: Those going to home had an average score at or above 18 Those going to facility had an average score at or below 17 Assessment Discharge Therapy Needs - PT: Ongoing skilled physical therapy (Continuation of home health care) Skilled therapy can include physical therapy provided by home health, outpatient clinic, or a post-acute facility. The location of these services is determined by the patient's care team in partnershipwith patient/family. Level of Care Needed - PT: Assistance with stairs, Physical assistance needed, Assistance with walking and moving around the home, Cognitive assistance needed Equipment Recommended - PT: Front-wheeled walker Patient owns Barriers to Discharge Home: Current functional status, Fall risk, Inaccessible home environment From a physical therapy perspective, the level of care above has been recommended for Ms. Carias after hospital discharge. This level of care is based on her functional abilities during today's session.This may change throughout the hospital course and will be updated as appropriate. Clinical Impression of today's session: Patient demonstrated improved ability to participate in functional mobility compared previous therapy sessions; she was able to ambulate further distance, complete bed mobility with less effort, and negotiate 3 stairs. Patient declined further negotiating any stairs as she desired to maintain her energy for discharge home this date. She was able to walk short household distances with use of a front wheeled walker which she owns. At this time, she no longer requires further skilled acute care physical therapy. We will sign off at this time. Rehab potential: Ms. Carias has Fair potential to achieve established physical therapy goals within the time frame outlined below. Progress: All PT goals achieved Functional Goals and Timeframes: PT Inpatient Goals PT Goal #1: Patient will perform bed mobility with modified independence without hospital bed features in order to improve functional mobility PT Goal #1 Status: Achieved PT Goal #2: Patient will perform transfers from various surfaces with least restrictive assistive device and modified independence in order to return to prior level of function PT Goal #2 Status: Achieved PT Goal #3: Patient will ambulate 35+m with least restrictive assistive device and modified independence in order to progress towards prior level of function PT Goal #3 Status: Progressing PT Goal #4: Patient will negotiate 10+ stairs with contact guard assistance of 1 person and use of single rail in order to access their home environment PT Goal #4 Status: Progressing (Negotiated 3 stairs - declined practicing more) Plan Treatment Plan: Plan: Discontinue PT PT Frequency: PT Amount: 1 visit per day PT Frequency: Follow-up visit only PT Inpatient Duration : Until goals are met Requires Inpatient Follow-Up: No PT Plan Comments: Patient mobilizing at/near baseline; no further skilled acute care physical therapy required Treatment interventions may include: Treatment/Interventions: Therapeutic functional activity, Gait training, Self- care/home management Billing: Time Spent with Patient Therapeutic Interventions Therapeutic Activity (min): 20 min Time Tracking Total Timed Units (min): 20 min Total Treatment Time (min): 20 min ([id number]) Allie Greer P.T., D.P.T. Harlan Monterroso, R.N. - 01/28/2022 7:22 AM CDT SUBJECTIVE Referral Data Discharge Planning: Reconnection of [facility] patient declined additional resources. Anticipated Needs Home Health Care Reconnection OBJECTIVE Patient on 6 D 744 ASSESSMENT / PLAN Assessment The Person(s) Present During Interview: patient appear to have insight into the patient's needs at this time and are planning appropriately for discharge needs. They report agreement with the below plan with no further questions at this time. Plan Patient to discharge with home health care. Home Medical Care - Admitted Since 01/20/2022 Service Provider Selected Services Address Phone Fax Patient Preferred [facility] [address], [facility] [phone] -- Contact: Intake NURSING: - Complete documentation in the Discharge Navigator including Nursing Report Info and Facility/NextLevel of Care Info - Call report and arrange for the patient???s first visit. - Send required packet of dismissal information with patient, including After Visit Summary and advance directive. PRIMARY SERVICE: - Please provide a [facility] home health order for resumption of previous services by home health care for alf once a week medication management on the After Visit Summary. If additional services are needed, please provide order. - Communicate with the patient???s local primary care provider by telephone for writing of home care orders. This needs to be done to help prevent discharge delays. A copy of the After Visit Summary needs to be sent there as well. CASE MANAGEMENT: -Reviewed patient's insurance coverage for the services noted above. The patient appear(s) to have an understanding of this. -Will continue to follow and assist if needs arise. Ervin Guan M.D. - 01/27/2022 1:08 PM CDT [facility] Medicine 3 ([facility]) Supervisory Note I have seen and assessed the patient with the medical team and helped to formulate the plan of care.I have personally reviewed the relevant data in the patient's medical chart. I agree with the findings, assessment and plan as written in the note by Gerda Hull M.D. dated 01/27/2022. # Decompensated Alcoholic Cirrhosis with ascites, MELD-Na 28, Child Class C # Hepatic Encephalopathy # MOSHE, resolved. # Acute on Chronic Anemia # Macrocytosis # Low back pain # GERD Catia Carias is a 31-year-old female with a medical history for alcoholic cirrhosis with refractory ascites, hepatic encephalopathy, chronic pancreatitis, GERD who was admitted to the hospital on 01/20 with acute kidney injury in the setting of abdominal pain and concern for SBP. This was ruled out after having had a paracentesis and she was transition back to ciprofloxacin for SBP prophylaxis. Shecontinues on rifaximin and lactulose for hepatic encephalopathy. Overall patient reports that she feels improved with the exception that she has some pain following banding yesterday on EGD. Cystatin-C slightly higher this AM. She underwent ultrasound-guided paracentesis for 4156 mL today and is receiving albumin. We are continuing with vitamin replacements and SBP prophylaxis with Cipro daily. Disposition: Patient was admitted from home, anticipating discharge back to home with home health when medically stable. Please refer to Gerda Hull M.D.'s note dated today for additional details about our team's plan of care. Counseling was provided [id number] at bedside regarding the plan of care as stated above. I personally spent over half of a total 25 minutes in counseling and coordination of care as documented above. Gerda Hull M.D., M.S. - 01/27/2022 11:56 AM CDT [facility] 3 ([facility]) PROGRESS NOTE SUBJECTIVE Patient had EGD with 4 large varices banded and reported some throat and esophageal soreness overnight. I have reviewed the current medication list. OBJECTIVE VITAL SIGNS Temperature: [36.5 ??C-37.5 ??C] 37 ??C Heart Rate: [90-102] 96 Resp Rate: [10-22] 18 Blood Pressure: (95-136)/(45-81) 123/67 SpO2: [90 %-96 %] 96 % Pulse Rate: [90-106] 91 PHYSICAL EXAM GEN: jaundiced, ill-appearing. In no acute distress. A&Ox3 HEENT: Scleral icterus present. Moist mucous membranes. CARDS: Systolic flow murmur auscultated in the LUSB and RUSB, regular rate and rhythm. PULM: Clear to auscultation bilaterally, crackles at bilateral bases ABD: Distended with shifting dullness, ascites stable compared to yesterday. No tenderness to palpation. INTEG: Jaundiced. No visible rashes, no palmar erythema MSK: No joint contractures or deformities. PV: Warm, well-perfused. 2+ pitting edema to shins NEURO: Moves all extremities spontaneously. No asterixis PSYCH: Appropriate, cooperative. DIAGNOSTICS I have personally reviewed the laboratory data and imaging since admission, and in/outs for past 72 hours. ASSESSMENT / PLAN Ms. Carias is hospitalized on [facility] 3 ([facility]) for evaluation and management of Failure Renal Acute (Acute Kidney Injury) (HCC). Briefly, she is a 31yo female with a history of alcoholic cirrhosis and refractory ascites who was admitted for an MOSHE. Plan: Decompensated cirrhosis S/p EGD banding of large varices with pain management with methanol lozanges, GI cocktail, and PRN dilaudid Paracentesis (01/27) took out 4.1 L with appropriate albumin replacement after Reduce spirolactone to 50 and furosemide to 20 Acute on chronic anemia-improving Ongoing workup given degree of anemia and multifactorial nature MOSHE S/p IV lasix yesterday F/u urine and cystatin-C studies # MOSHE # Decompensated Alcoholic Cirrhosis # Mild Hepatic Encephalopathy MELD-Na 27, Child Class C. MOSHE has improved greatly, Cr 0.74 (but baseline 0.4). Urine studies confirmed pre-renal with FeNa of 0.1%, so we gave additional 75g albumin for intravascular repletion on 01/24, 50g 01/25. Probably some component of compression from ascites, since Cr improved so significantlyafter paracentesis. Patient does not show signs of hepatic encephalopathy currently. She had 3 BM yesterday, one already this morning. S/p EGD banding of 4 large non-bleeding varices. Plan: Continue lactulose and rifaximin Increased lactulose dose to 20mg QID Continue ciprofloxacin 500mg daily for SBP prophylaxis Spironolactone and furosemide were held on admission and will be continued on discharge Thiamine 100mg daily, Folate 1mg, Vit A 3mg 3x weekly, VitD 25 mcg, Mag sulfate 400mg BID, Zinc 220mg and Copper 4 mg IV # Acute on Chronic Anemia # Macrocytosis # Iron Overload Hemoglobin reached kenia of 6.0 on 01/22, requiring 1U pRBC with appropriate response. Had been stable mid-7s until 01/25, when it was 6.2, without any bleeding. Likely some component of hemodilution--orrather, correction of hemoconcentration--since patient was intravascularly depleted and she received 1.5L with albumin yesterday, and other cell lines are decreased today too. She is s/p 1 U pRBC 01/25,01/26. This anemia is likely of mixed etiology, in the setting of liver cirrhosis, splenic sequestration +/- hemolysis, anemia of chronic disease, and possibly slow GI losses. Iron studies were conducted which indicated iron overload, s/p many blood transfusions. Ferritin was previously very elevated in 03/2021 as well, though this may be in relation to elevation as an acute phase reactant. Less likely ironstorage disorder. Interestingly, past anemia evaluation also showed evidence of hemolysis (elevated LDH and indirect bili, low haptoglobin), but no evidence of autoimmune hemolytic anemia as of 2 months ago. Blood smears in July, August, and October have shown marked acanthocytes and few schistocytes. Reticulocytes have been elevated consistently. Blood smear 01/25/22: morphologic features of hemolysis are seen. No schistocytes are seen. No platelet clumping. CIRILO negative. LDH wnl, but indirect bili elevated. Elevated retics 01/25, appropriate bone marrow response to anemia. Haptoglobin levels low <14 (01/25). Considering heme curbside #Low Back Pain Flexeril 5mg BID PRN. DO not want to further increase dose due to liver impairment Continue lidocaine patch as needed Has been using dilaudid PRNs TID, opting for 2mg PO over 1mg PO. Will decrease available dose to 1mgonly. #GERD Continue pantoprazole 40mg # Dispo - Please provide a [facility] home health order for resumption of previous services by home health care for alf once a week medication management on the After Visit Summary. If additional services are needed, please provide order. - Communicate with the patient???s local primary care provider by telephone for writing of home care orders. This needs to be done to help prevent discharge delays. A copy of the After Visit Summary needs to be sent there as well. Current Activity/Mobility: BMAT Level 4 (Able to stand and walk; needs staff assist if fall risk factors identified) Fall Injury Prevention: N/A - patient is not determined to be at risk of falling Diet: clear liquid diet Tubes/lines: PIV VTE prophylaxis: Held before EGD, now back on enoxaparin Disposition: Home with expected discharge date Plan discussed with [facility] 3 ([facility]) [employer] Clerk, Ervin Osorio M.D., who was present during judd portions of the evaluation today. Please page the [facility] 3 ([facility]) service pager at [phone] with any questions. Nora Kelly Pharm.D., R.Ph. - 01/27/2022 6:24 AM CDT Pharmacist Progress Note Reason for admission: acute renal failure 2/2 decompensated liver cirrhosis and refractory ascites PMH: alcoholic cirrhosis (undergoing transplant evaluation), GERD, chronic pancreatitis, rhinitis, HTN, anxiety OBJECTIVE Home medications: Held: acetaminophen, furosemide, spironolactone Changed: cholecalciferol (increase dose), lactulose (increased based on bowel movements) Renal Status Estimated Creatinine Clearance: 96.9 mL/min (by C-G formula based on SCr of 0.85 mg/dL). Meds Renally adjusted: none VTE Prophylaxis: none d/t low platelet (42) ASSESSMENT / PLAN Alcoholic cirrhosis w/ ascites: Recent hospitalization for hepatic encephalopathy and concern for GIbleed (01/09/2022). Most recent MELD-Na 27. Child Class C. Ceftriaxone transitioned back to prophylactic Cipro based peritoneal fluid containing PMNs <250 on 01/21. Peritoneal fluid cultures negative. Holding spironolactone and furosemide d/t concurrent MOSHE. EGD completed and showed varices without bleeding, banding completed. Continued lactulose and rifaximin (goal 2-3 bowel movements daily, BM x4 yesterday). Started thiamine, folate, vitamin A, mag sulfate, zinc, and vitamin D. Paracentesis today. MOSHE: Uptrending Scr 0.85 (baseline ~0.7 mg/dL). 01/27 Cystatin C 1.75 with eGFR 39. Medications evaluated for dosing adjustments based on current kidney function. Heme: Hemoglobin stable (7.4) with 1-unit pRBC given 01/25 and 01/26. Ferritin 564 with percent saturation >90%, likely iron overload 2/2 blood transfusions. Elevated reticulocyte count (6.67%). Haptoglobin (<14). Nora Kelly PharmSumaD., R.Ph. Ervin Mazariegos M.D. - 01/26/2022 2:01 PM CDT [facility] 3 ([facility]) Supervisory Note I have seen and assessed the patient with the medical team and helped to formulate the plan of care.I have personally reviewed the relevant data in the patient's medical chart. I agree with the findings, assessment and plan as written in the note by Yue Silver M.D. dated 01/26/2022. # Decompensated Alcoholic Cirrhosis with ascites, MELD-Na 28, Child Class C # Hepatic Encephalopathy # MOSHE, resolved. # Acute on Chronic Anemia # Macrocytosis # Low back pain # GERD Catia Carias is a 31-year-old female with a medical history for alcoholic cirrhosis with refractory ascites, hepatic encephalopathy, chronic pancreatitis, GERD who was admitted to the hospital on 01/20 with acute kidney injury in the setting of abdominal pain and concern for SBP. This was ruled out after having had a paracentesis and she was transition back to ciprofloxacin for SBP prophylaxis. Shecontinues on rifaximin and lactulose for hepatic encephalopathy. Overall patient reports that she feels she is improving. Her MOSHE has resolved with albumin infusionsand holding diuretics. She is having a repeat EGD today as well as a paracentesis. Further workup ofher anemia is underway without obvious signs for bleeding or hemolysis at the present time. She did have 1 unit of packed RBCs this morning. Anticipating eTransplant evaluation tomorrow morning. Disposition: Patient was admitted from home, anticipating discharge back to home with home health when medically stable. Please refer to Yue Silver M.D.'s note dated today for additional details about our team's planof care. Counseling was provided [id number] at bedside regarding the plan of care as stated above. I personally spent over half of a total 25 minutes in counseling and coordination of care as documented above. Sweetie Greer P.T., D.P.T. - 01/26/2022 1:15 PM CDT 01/26/22 1314 Reason Therapy Missed Reason Therapy Missed Patient refused (Attempted to see patient in PM - patient pretended to fall asleep multiple times during the brief visit but then declined stating she just wanted to get her endoscopy; will attempt evaluation as appropriate/able on 01/27/2022) Allie Greer P.T., D.P.T. Alma Dietrich R.N. - 01/26/2022 7:02 AM CDT Please see transition planning note pulled forward below from 01/21/2022 by Radio Survey Worker Virginia Handley M.S., R.N. SUBJECTIVE Referral Data Discharge Planning: Reconnection of [facility] patient declined additional resources. Anticipated Needs Home Health Care Reconnection OBJECTIVE Patient on MB 6 D 744 ASSESSMENT / PLAN Assessment The Person(s) Present During Interview: patient appear to have insight into the patient's needs at this time and are planning appropriately for discharge needs. They report agreement with the below plan with no further questions at this time. Plan Patient to discharge with home health care. Home Medical Care - Admitted Since 01/20/2022 Service Provider Selected Services Address Phone Fax Patient Preferred [facility] [address], [facility] [id number] -- Contact: Intake NURSING: - Complete documentation in the Discharge Navigator including Nursing Report Info and Facility/NextLevel of Care Info - Call report and arrange for the patient???s first visit. - Send required packet of dismissal information with patient, including After Visit Summary and advance directive. PRIMARY SERVICE: - Please provide a [facility] home health order for resumption of previous services by home health care for alf once a week medication management on the After Visit Summary. If additional services are needed, please provide order. - Communicate with the patient???s local primary care provider by telephone for writing of home care orders. This needs to be done to help prevent discharge delays. A copy of the After Visit Summary needs to be sent there as well. CASE MANAGEMENT: -Reviewed patient's insurance coverage for the services noted above. The patient appear(s) to have an understanding of this. -Will continue to follow and assist if needs arise. Virginia Handley M.S., R.N. Yue Silver M.D. - 01/26/2022 6:12 AM CDT [facility] ([facility]) PROGRESS NOTE SUBJECTIVE Ms. Carias reports feeling well this morning. She had 3 BM yesterday, 2 of which were documented, andsays she felt better afterwards. She says her ascites is still more than usual, as is her LE swelling, but no abdominal pain, N/V. No F/C or shortness of breath. I have reviewed the current medication list. OBJECTIVE VITAL SIGNS Temperature: [36.4 ??C-37.6 ??C] 36.7 ??C Heart Rate: [108] 108 Resp Rate: [16-20] 18 Blood Pressure: (97-117)/(46-71) 112/60 SpO2: [90 %-95 %] 94 % Flow Rate (L/min): [0 L/min] 0 L/min Pulse Rate: [91-113] 96 PHYSICAL EXAM GEN: jaundiced, ill-appearing. In no acute distress. A&Ox3 HEENT: Scleral icterus present. Moist mucous membranes. CARDS: Systolic flow murmur auscultated in the LUSB and RUSB, regular rate and rhythm. PULM: Clear to auscultation bilaterally, crackles at bilateral bases ABD: Distended with shifting dullness, ascites stable compared to yesterday. No tenderness to palpation. INTEG: Jaundiced. No visible rashes, no palmar erythema MSK: No joint contractures or deformities. PV: Warm, well-perfused. 2+ pitting edema to shins NEURO: Moves all extremities spontaneously. No asterixis PSYCH: Appropriate, cooperative. DIAGNOSTICS I have personally reviewed the laboratory data and imaging since admission, and in/outs for past 72 hours. ASSESSMENT / PLAN Ms. Carias is hospitalized on [place] [address] ([facility]) for evaluation and management of Failure Renal Acute (Acute Kidney Injury) (HCC). Briefly, she is a 31yo female with a history of alcoholic cirrhosis and refractory ascites who was admitted for an MOSHE. Plan: Decompensated cirrhosis EGD confounded by food in stomach, requiring repeat scheduled for today GI requested INR <1.5 so gave pt 2 units FFP this morning for INR 2.5. 1 unit pRBC . Paracentesis tomorrow Acute on chronic anemia S/p 1 unit pRBC yesterday and 1 unit today for Hgb 6.2, baseline mid-7's Ongoing workup given degree of anemia and multifactorial nature MOSHE - improving Fluid resuscitation with albumin as needed # MOSHE # Decompensated Alcoholic Cirrhosis # Mild Hepatic Encephalopathy MELD-Na 27, Child Class C. MOSHE has improved greatly, Cr 0.74 (but baseline 0.4). Urine studies confirmed pre-renal with FeNa of 0.1%, so we gave additional 75g albumin for intravascular repletion on 01/24, 50g 01/25. Probably some component of compression from ascites, since Cr improved so significantlyafter paracentesis. Patient does not show signs of hepatic encephalopathy currently. She had 3 BM yesterday, one already this morning. Plan: Patient is receiving EGD today Continue lactulose and rifaximin Increased lactulose dose to 20mg QID Paracentesis for tomorrow Continue ciprofloxacin 500mg daily for SBP prophylaxis Spironolactone and furosemide were held on admission and will be continued on discharge Thiamine 100mg daily, Folate 1mg, Vit A 3mg 3x weekly, VitD 25 mcg, Mag sulfate 400mg BID, Zinc 220mg # Acute on Chronic Anemia # Macrocytosis # Iron Overload Hemoglobin reached kenia of 6.0 on 01/22, requiring 1U pRBC with appropriate response. Had been stable mid-7s until 01/25, when it was 6.2, without any bleeding. Likely some component of hemodilution--orrather, correction of hemoconcentration--since patient was intravascularly depleted and she received 1.5L with albumin yesterday, and other cell lines are decreased today too. She is s/p 1 U pRBC 01/25,01/26. This anemia is likely of mixed etiology, in the setting of liver cirrhosis, splenic sequestration +/- hemolysis, anemia of chronic disease, and possibly slow GI losses. Iron studies were conducted which indicated iron overload, s/p many blood transfusions. Ferritin was previously very elevated in 03/2021 as well, though this may be in relation to elevation as an acute phase reactant. Less likely ironstorage disorder. Interestingly, past anemia evaluation also showed evidence of hemolysis (elevated LDH and indirect bili, low haptoglobin), but no evidence of autoimmune hemolytic anemia as of 2 months ago. Blood smears in July, August, and October have shown marked acanthocytes and few schistocytes. Reticulocytes have been elevated consistently. Blood smear 01/25/22: morphologic features of hemolysis are seen. No schistocytes are seen. No platelet clumping. CIRILO negative. LDH wnl, but indirect bili elevated. Elevated retics 01/25, appropriate bone marrow response to anemia. Haptoglobin Repeat EGD early this week; CLD over weekend, with erythromycin 8 hours before scope Considering heme curbside #Low Back Pain Flexeril 5mg BID PRN. DO not want to further increase dose due to liver impairment Continue lidocaine patch as needed Has been using dilaudid PRNs TID, opting for 2mg PO over 1mg PO. Will decrease available dose to 1mgonly. #GERD Continue pantoprazole 40mg # Dispo - Please provide a [facility] home health order for resumption of previous services by home health care for alf once a week medication management on the After Visit Summary. If additional services are needed, please provide order. - Communicate with the patient???s local primary care provider by telephone for writing of home care orders. This needs to be done to help prevent discharge delays. A copy of the After Visit Summary needs to be sent there as well. Current Activity/Mobility: BMAT Level 4 (Able to stand and walk; needs staff assist if fall risk factors identified) Fall Injury Prevention: N/A - patient is not determined to be at risk of falling Diet: clear liquid diet Tubes/lines: PIV VTE prophylaxis: Held before EGD, now back on enoxaparin Disposition: Home with expected discharge date Plan discussed with [facility] 3 ([facility]) [employer] Clerk, Joshua Ayala M.D., who was present during judd portions of the evaluation today. Please page the [facility] 3 ([facility]) service pager at [phone] with any questions. Rhea Silver MD Nora Kelly PharmSumaD., R.Ph. - 01/26/2022 5:37 AM CDT Pharmacist Progress Note Reason for admission: acute renal failure 2/2 decompensated liver cirrhosis PMH: alcoholic cirrhosis (undergoing transplant evaluation), GERD, chronic pancreatitis, rhinitis, HTN, anxiety OBJECTIVE Home medications: Held: acetaminophen, furosemide, spironolactone Changed: none Unable to complete medication history. Patient having trouble staying awake and is delayed in response to questions. Renal Status Estimated Creatinine Clearance: 111.3 mL/min (by C-G formula based on SCr of 0.74 mg/dL). Meds Renally adjusted: none VTE Prophylaxis: none d/t low platelets (56) ASSESSMENT / PLAN Alcoholic cirrhosis w/ ascites: Recent hospitalization for hepatic encephalopathy and concern for GIbleed (01/09/2022). Most recent MELD 26. Ceftriaxone transitioned back to prophylactic Cipro based peritoneal fluid containing PMNs <250 on 01/21. Peritoneal fluid cultures negative. Holding spironolactone and furosemide. Continued lactulose and rifaximin (patient reports 3 bowel movement yesterday, not reported in Epic). Started thiamine, folate, vitamin A, and vitamin D. Second paracentesis plannedtoday. MOSHE: Stable 0.74 (baseline ~0.7 mg/dL). 01/24 Cystatin C 1.96 with eGFR 33. Medications evaluated fordosing adjustments based on current kidney function. Heme: Hemoglobin 6.2 yesterday requiring 1 unit pRBC, remains low today (6.3). Ferritin 564 with percent saturation >90%, likely iron overload 2/2 blood transfusions. Concern for possible GI bleed, EGD planned for today (given FFP d/t increased INR). Nora Kelly, PharmSumaDSuma, R.Ph. Yue Silver M.D. - 01/25/2022 6:06 AM CDT [facility] ([facility]) PROGRESS NOTE SUBJECTIVE Ms. Carias reports significant back pain this morning, helped by flexeril. No abdominal pain, N/V, F/C. Had 2 BM yesterday. Very hungry due to clear liquid diet and hopeful EGD can be completed tomorrow. I have reviewed the current medication list. OBJECTIVE VITAL SIGNS Temperature: [36.7 ??C-37 ??C] 37 ??C Resp Rate: [18] 18 Blood Pressure: (112-117)/(63-73) 113/63 SpO2: [92 %-93 %] 93 % Pulse Rate: [101-107] 102 PHYSICAL EXAM GEN: jaundiced, ill-appearing. In no acute distress. A&Ox3 HEENT: Scleral icterus present. Moist mucous membranes. CARDS: Systolic murmur auscultated in the LUSB and RUSB, regular rate and rhythm. PULM: Clear to auscultation bilaterally, lung sounds decreased at the bases but no crackles. ABD: Distended with shifting dullness, increased ascites compared to yesterday. Periumbilical bulge.No tenderness to palpation. INTEG: Jaundiced. No visible rashes MSK: No joint contractures or deformities. PV: Warm, well-perfused. 2+ pitting edema to shins NEURO: Moves all extremities spontaneously. No asterixis PSYCH: Appropriate, cooperative. DIAGNOSTICS I have personally reviewed the laboratory data and imaging since admission, and in/outs for past 72 hours. ASSESSMENT / PLAN Ms. Carias is hospitalized on [place] [address] ([facility]) for evaluation and management of Failure Renal Acute (Acute Kidney Injury) (HCC). Briefly, she is a 31yo female with a history of alcoholic cirrhosis and refractory ascites who was admitted for an MOSHE. Plan: Anemia worsened, Hgb 6.2 today, without evidence of bleeding. S/p 1 u pRBC this morning. Recheck CBCin AM. Continue anemia investigation - consider heme curbside tomorrow. EGD confounded by food in stomach, requiring repeat Clear liquid diet only this weekend NPO at midnight IV erythromycin 3mg/kg 8 hours before EGD for gastric motility Paracentesis tomorrow # MOSHE # Decompensated Alcoholic Cirrhosis # Mild Hepatic Encephalopathy MELD-Na 27, Child Class C. MOSHE has improved greatly, Cr 0.74 (but baseline 0.4). Urine studies confirmed pre-renal with FeNa of 0.1%, so we gave additional 75g albumin for intravascular repletion on 01/24. Ms. Carias says that she typically has 2-3 bowel movements daily with her current lactulose level but has had less in the hospital due to eating less. Two total BM yesterday (early AM, afternoon). However she had insomnia the night before last, which is an early sign of encephalopathy, so we will bemore aggressive with lactulose today, goal 3-4 BM. Plan: Continue lactulose and rifaximin Temporarily increase lactulose to q3h until patient has 3 BM, then call service Adjust lactulose for tomorrow Paracentesis for tomorrow EGD tomorrow hopefully, NPO at midnight, IV erythromycin 250mg at 11pm tonight. Will likely need FFP 1-2 hours before EGD, since INR is persistently >2.5 (today was 2.8) Continue ciprofloxacin 500mg daily for SBP prophylaxis Spironolactone and furosemide were held on admission and will be continued on discharge Thiamine 100mg daily, Folate 1mg, Vit A 3mg 3x weekly, VitD 25 mcg, Mag sulfate 400mg BID, Zinc 220mg Transplant appointment on 01/27 as outpatient fyi # Acute on Chronic Anemia # Macrocytosis # Iron Overload Hemoglobin reached kenia of 6.0 on 01/22, requiring 1U pRBC with appropriate response. Had been stable mid-7s until this morning, when it was 6.2, without any bleeding. Likely some component of hemodilution--or rather, correction of hemoconcentration--since patient was intravascularly depleted and she received 1.5L with albumin yesterday, and other cell lines are decreased today too. She is s/p 1 U pRBC 01/25. This anemia is likely of mixed etiology, in the setting of liver cirrhosis, splenic sequestration +/- hemolysis, anemia of chronic disease, and possibly slow GI losses. Iron studies were conducted which indicated iron overload, s/p many blood transfusions. Ferritin was previously very elevated in 03/2021 as well, though this may be in relation to elevation as an acute phase reactant. Less likely ironstorage disorder. Interestingly, past anemia evaluation also showed evidence of hemolysis (elevated LDH and indirect bili, low haptoglobin), but no evidence of autoimmune hemolytic anemia as of 2 months ago. Blood smears in July, August, and October have shown marked acanthocytes and few schistocytes. Reticulocytes have been elevated consistently. Blood smear 01/25/22: morphologic features of hemolysis are seen. No schistocytes are seen. No platelet clumping. CIRILO negative. LDH wnl, but indirect bili elevated. Elevated retics 01/25, appropriate bone marrow response to anemia. Haptoglobin Repeat EGD early this week; CLD over weekend, with erythromycin 8 hours before scope #Low Back Pain Flexeril 5mg BID PRN. DO not want to further increase dose due to liver impairment Continue lidocaine patch as needed Has been using dilaudid PRNs TID, opting for 2mg PO over 1mg PO. Will decrease available dose to 1mgonly. #GERD Continue pantoprazole 40mg Current Activity/Mobility: BMAT Level 4 (Able to stand and walk; needs staff assist if fall risk factors identified) Fall Injury Prevention: N/A - patient is not determined to be at risk of falling Diet: clear liquid diet Tubes/lines: PIV VTE prophylaxis: Held before EGD, now back on enoxaparin Disposition: Home with expected discharge date Plan discussed with [facility] 3 ([facility]) [employer] Clerk, Joshua Ayala M.D., who was present during judd portions of the evaluation today. Please page the [facility] 3 ([facility]) service pager at [phone] with any questions. Rhea Silver MD Associated attestation - Joshua Johnson M.D. - 01/25/2022 3:45 PM CDT I saw and evaluated the patient, participating in the judd portions of the service. I reviewed the resident/fellow???s note. I agree with the resident/fellow???s findings and plan. Yue Silver M.D. - 01/24/2022 7:11 AM CDT [facility] 3 ([facility]) PROGRESS NOTE SUBJECTIVE Ms. Carias reports feeling overall well today. Denies abdominal pain, N/V. She had a large BM this morning, after which she felt better. The previous two days she had only 1 small BM each, but states this is likely because of minimal PO intake. I have reviewed the current medication list. OBJECTIVE VITAL SIGNS Temperature: [36.4 ??C-36.9 ??C] 36.4 ??C Heart Rate: [93-98] 94 Resp Rate: [12-20] 15 Blood Pressure: (90-121)/(51-74) 121/72 SpO2: [90 %-97 %] 94 % Weight: [64 kg] 64 kg BMI (Calculated): [25.8 kg/m??] 25.8 kg/m?? Pulse Rate: [92-104] 100 PHYSICAL EXAM GEN: jaundiced, ill-appearing. In no acute distress. A&Ox3 HEENT: Scleral icterus present. Moist mucous membranes. CARDS: Systolic murmur auscultated in the LUSB and RUSB, regular rate and rhythm. PULM: Clear to auscultation bilaterally. ABD: Distended with shifting dullness. No tenderness to palpation. INTEG: Jaundiced. No visible rashes MSK: No joint contractures or deformities. PV: Warm, well-perfused. 1+ pitting edema to shins NEURO: Moves all extremities spontaneously. No asterixis PSYCH: Appropriate, cooperative. DIAGNOSTICS I have personally reviewed the laboratory data and imaging since admission, and in/outs for past 72 hours. ASSESSMENT / PLAN Ms. Carias is hospitalized on [facility] ([facility]) for evaluation and management of Failure Renal Acute (Acute Kidney Injury) (HCC). Briefly, she is a 31yo female with a history of alcoholic cirrhosis and refractory ascites who was admitted for an MOSHE. Plan: Urine studies - UA, Na, Cr to assess status of MOSHE and determine whether add'l fluids or albumin would be beneficial EGD confounded by food in stomach, requiring repeat to look for causes of anemia and evidence of portal HTN Ms. Carias should be on clear liquid diet only this weekend IV erythromycin 3mg/kg 8 hours before EGD for gastric motility Continue anemia investigation - CBC, reticulocyte count, blood smear #MOSHE in the Setting of Decompensated Alcoholic Cirrhosis #Mild Hepatic Encephalopathy MELD-Na 27, Child Class C. MOSHE has improved greatly, Cr 0.82 (but baseline 0.4). There is likely room to further treat her MOSHE, so we will check urine studies to assess need for additional fluids +/- albumin if pre-renal. Ms. Carias says that she typically has 2-3 bowel movements daily with her currentlactulose level but has had less in the hospital due to eating less. One BM each of the past three days, not encephalopathic on exam. Plan: Continue lactulose and rifamixin Continue ciprofloxacin 500mg daily for SBP prophylaxis Spironolactone and furosemide were held on admission and will be continued on discharge Thiamine 100mg daily, Folate 1mg, Vit A 3mg 3x weekly, VitD 25 mcg May need paracentesis again within the next few days. Will determine based on patient comfort and physical exam Transplant appointment on 01/27 as outpatient fyi # Acute on Chronic Anemia # Macrocytosis # Iron Overload Hemoglobin reached kenia of 6.0 on 01/22, requiring 1U pRBC with appropriate response. Currently stable at 7.6. This anemia is likely of mixed etiology, in the setting of liver cirrhosis, anemia of chronic disease, and possibly slow GI losses. Iron studies were conducted which indicated iron overload; ferritin was previously very elevated in 03/2021 as well, though this may be in relation to elevationas an acute phase reactant. Less likely iron storage disorder. Interestingly, anemia evaluation alsoshowed evidence of hemolysis (elevated LDH and indirect bili, low haptoglobin), but no evidence of autoimmune hemolytic anemia as of 2 months ago. Blood smears in July, August, and October have shown marked acanthocytes and few schistocytes. Reticulocytes have been elevated consistently. CBC, reticulocyte count, blood smear Repeat EGD early this week; CLD over weekend, with erythromycin 8 hours before scope #Low Back Pain Continue lidocaine patch as needed #GERD Continue pantoprazole and flexeril Current Activity/Mobility: BMAT Level 4 (Able to stand and walk; needs staff assist if fall risk factors identified) Fall Injury Prevention: N/A - patient is not determined to be at risk of falling Diet: clear liquid diet Tubes/lines: PIV VTE prophylaxis: Held before EGD, now back on enoxaparin Disposition: Home with expected discharge date Plan discussed with [facility] Medicine 3 ([facility]) [employer] Clerk, Joshua Ayala M.D., who was present during judd portions of the evaluation today. Please page the [facility] Medicine 3 ([facility]) service pager at [phone] with any questions. Rhea Silver MD Associated attestation - Joshua Johnson M.D. - 01/24/2022 4:05 PM CDT I saw and evaluated the patient, participating in the judd portions of the service. I reviewed the resident/fellow???s note. I agree with the resident/fellow???s findings and plan. Huang Diamond M.D. - 01/23/2022 2:41 PM CDT MED 3 PROGRESS NOTE 01/23/22 31 y.o. female admitted 3 days ago with acute renal failure 2/2 decompensated liver cirrhosis. SUBJECTIVE No acute events overnight and feels better overall today. She had 1 bowel movement yesterday but hadreduced PO intake overall and attributes it to that. Otherwise no headache, abdominal pain, chest pain, shortness of breath, or dark stools. OBJECTIVE Temperature: [36.8 ??C-37 ??C] 36.8 ??C Heart Rate: [92] 92 Resp Rate: [18-20] 20 Blood Pressure: (104-121)/(56-69) 121/69 SpO2: [93 %-99 %] 95 % Pulse Rate: [89-100] 95 Intake/Output Summary (Last 24 hours) at 01/23/2022 1441 Last data filed at 01/23/2022 1325 Gross per 24 hour Intake 700 ml Output 200 ml Net 500 ml PHYSICAL EXAM: GEN: jaundiced, ill-appearing. In no acute distress. More alert on examination today. HEENT: Scleral icterus present. Moist mucous membranes. CARDS: Systolic murmur auscultated in the LUSB and RUSB, regular rate and rhythm. PULM: Clear to auscultation bilaterally. ABD: mildly improved distention with shifting dullness. No tenderness to palpation. INTEG: Jaundiced. No visible rashes MSK: No joint contractures or deformities. PV: Warm, well-perfused. NEURO: Moves all extremities spontaneously. A&Ox3 PSYCH: Appropriate, cooperative. ASSESSMENT / PLAN Catia Carias is a 31 y.o. female with alcoholic cirrhosis and refractory ascites who is admitted for an MOSHE. # Acute on chronic macrocytic anemia # thrombocytopenia # chronic pancreatitis Anemia and thrombocytopenia are likely secondary to alcoholic cirrhosis. Patient received 1 unit pRBC transfusion for Hgb 6.0 yesterday with subsequent recheck this morning showing Hgb > 7. Patient does not have bloody stool or emesis to suggest active variceal bleeding. Her iron studies returned and are suggestive of iron overload (particularly given the very high percent iron saturation). Based on these findings, we will have a higher threshold to proceed with a pRBC transfusion. In preparationfor EGD today, we will administer 1 unit FFP to reduce risk of post-banding bleeding. - EGD today ordered to assess for possible esophageal varices - Daily CBCs - 1 unit FFP today for INR > 2.5 - holding VTE prophylaxis for now due to low platelet count. # ascites, refractory # alcoholic cirrhosis, decompensated # hyperbilirubinemia Patient is presenting with an MOSHE that is most likely prerenal, and less likely hepatorenal as her creatinine is improving after paracentesis. Her paracentesis only showed 2 neutrophils, however this was after administration of ceftriaxone. Her abdominal pain has now resolved. Given the lack of pain and the paracentesis showing just to neutrophils, we will transition her back to ciprofloxacin 500 mg daily for SBP prophylaxis. Her encephalopathy has improved today as she is much more alert on examination; she only had 1 bowel movement yesterday which would suggest low dosing of lactulose - however,patient does report that she had significantly reduced PO intake yesterday and thinks she otherwise would have 2- 3 bowel movements daily on this dosage. For now, we will keep the dosage the same and will re-evaluate number of bowel movements once PO intake is restarted. - Continue ciprofloxacin 500 mg daily for SBP prophylaxis -hold spironolactone and furosemide, to restart on discharge - Albumin 25% 1g/kg given, reassess fluid status daily. - trend creatinine, improving greatly - Continue lactulose and rifaximin - Titrate lactulose to 2-3 bowel movements per day Chronic Problems: # low back pain - lidocaine patch applications. # GERD - continue home pantoprazole and Flexeril # Patent foramen ovale last echocardiogram on 08/2021 demonstrated no significant change from when performed 03/2021. Last outpatient cardiology appointment on 10/03/2021 where it was reported that further cardiac assessmentwas not necessary at that time. - Monitor Diet: Low-sodium diet Tubes/lines: PIV VTE prophylaxis: SCD's Code status: Full Code Disposition: Home Mobility: BMAT Level 4 (Able to stand and walk) Please TEXT PAGE MED 3 with any Questions Huang Diamond MD Internal Medicine, PGY-1 Medicine 3 Service Pager [phone] Migue Spencer - 01/23/2022 11:24 AM CDT [facility] Medicine 3 ([facility]) PROGRESS NOTE SUBJECTIVE Ms. Carias did well overnight. She reports that she hasn't been eating much, but intends to eat afterher EGD which is scheduled for later today. She had one bowel movement yesterday, but attributes herlow amount of BMs to not eating rather than having a lactulose intake that is too low. I have reviewed the current medication list. OBJECTIVE VITAL SIGNS Temperature: [36.8 ??C-37 ??C] 36.9 ??C Heart Rate: [92] 92 Resp Rate: [14-20] 20 Blood Pressure: (104-116)/(55-65) 106/64 SpO2: [93 %-99 %] 96 % Pulse Rate: [89-107] 98 Intake/Output Summary (Last 24 hours) at 01/23/2022 1124 Last data filed at 01/22/2022 2130 Gross per 24 hour Intake 1050 ml Output 500 ml Net 550 ml PHYSICAL EXAM Vitals reviewed. Constitutional General: She is not in acute distress. Appearance: She is not ill-appearing, toxic-appearing or diaphoretic. HENT Head: Normocephalic and atraumatic. Cardiovascular Rate and Rhythm: Normal rate and regular rhythm. Heart sounds: Murmur heard. No friction rub. No gallop. Comments: Loud systolic murmur heard best at left sternal border Pulmonary Effort: Pulmonary effort is normal. No respiratory distress. Breath sounds: Normal breath sounds. No stridor. No wheezing, rhonchi or rales. Abdominal General: There is distension. Skin Capillary Refill: Capillary refill takes less than 2 seconds. Neurological General: No focal deficit present. Mental Status: She is alert. Comments: Patient appears more alert than when examined yesterday morning. DIAGNOSTICS I have personally reviewed the laboratory data and imaging since admission, and in/outs for past 72 hours. Recent Results (from the past 24 hour(s)) Hemoglobin Collection Time: 01/22/22 10:18 PM Result Value Hemoglobin 7.5 (L) Ammonia Collection Time: 01/23/22 5:27 AM Result Value Ammonia, P 109 (H) CBC with Differential, Blood Collection Time: 01/23/22 5:27 AM Result Value Hemoglobin 7.1 (L) Hematocrit 21.6 (L) Erythrocytes 2.06 (L) MCV 104.9 (H) RBC Distrib Width 23.1 (H) Platelet Count 52 (L) Leukocytes 5.9 Neutrophils 4.19 Lymphocytes 0.98 Monocytes 0.57 Eosinophils 0.09 Basophils 0.03 Basic Metabolic Panel Collection Time: 01/23/22 5:27 AM Result Value Potassium, S 4.8 Sodium, S 135 Chloride, S 104 Bicarbonate, S 20 (L) Anion Gap 11 BUN (Blood Urea Nitrogen), S 22 (H) Creatinine 0.77 Estimated GFR (eGFR) >90 Calcium, Total, S 9.1 Glucose, S 118 Prothrombin Time (PT) Collection Time: 01/23/22 10:58 AM Result Value Prothrombin Time, P 31.5 (H) INR 2.8 No results found. ASSESSMENT / PLAN Ms. Carias is hospitalized on [place] [id number] ([facility]) for evaluation and management of Failure Renal Acute (Acute Kidney Injury) (HCC). Briefly, she is a 31yo female with a history of alcoholic cirrhosis and refractory ascites who was admitted for an MOSHE. Acute Problems: #Anemia in the setting of Alcoholic Cirrhosis Assessment: This anemia is likely due to the liver cirrhosis. Iron studies were conducted which indicated iron overload. This should be followed-up on in the outpatient setting. Ms. Carias hemoglobin improved after the infusion of 1 unit of packed RBCs. She will also receive an infusion of FFP prior to her EGD today at the request of GI due to her high INR. Plan: EGD scheduled for today FFP infusion prior to EGD Update: Ms. Carias went for her EGD today. Large varices without concerning features were identified.There was no active bleed. Unfortunately, there was liquid and food in her stomach despite having been NPO since 11pm and another EGD will need to be conducted. She will remain in-patient until EGD early next week. GI recommends the following: Ms. Carias should be on clear liquid diet only this weekend IV erythromycin 3mg/kg 8 hours before EGD for gastric motility #MOSHE in the Setting of Decompensated Alcoholic Cirrhosis #Mild Hepatic Encephalopathy Assessment: The MOSHE has resolved. Ms. Carias says that she has 2-3 bowel movements daily with her current lactulose level but has had less in the hospital due to eating less. Her mental status was improved today. Plan: Continue lactulose and rifamixin Continue ciprofloxacin 500mg daily for SBP prophylaxis Spironolactone and furosemide were held on admission and will be continued on discharge Chronic Problems: #Low Back Pain Plan: Continue lidocaine patch as needed #GERD Plan: Continue pantoprazole and flexeril Current Activity/Mobility: BMAT Level 4 (Able to stand and walk; needs staff assist if fall risk factors identified) Fall Injury Prevention: N/A - patient is not determined to be at risk of falling Diet: clear liquid diet Tubes/lines: PIV VTE prophylaxis: Held Disposition: Home with expected discharge date Plan discussed with [facility] Medicine 3 ([facility]) [employer] Clerk, Joshua Ayala M.D., who was present during judd portions of the evaluation today. Please page the [facility] Medicine 3 ([facility]) service pager at [phone] with any questions. Migue Spencer Third-Year Medical Student [employer] [facility] Joshua Francois M.D. - 01/23/2022 10:29 AM CDT I saw and evaluated the patient, participating in the judd portions of the service. I reviewed the resident/fellow???s note. I agree with the resident/fellow???s findings and plan. 1. Acute on chronic anemia 2. Refractory ascites 3. Decompensated alcoholic cirrhosis with associated macrocytic anemia and thrombocytopenia 4. Hyperbilirubinemia She likely has a mild degree of hepatic encephalopathy but her mental status does seem improved fromyesterday, she has been NPO so she has not had a bowel movement, patient is aware that she needs to have 2-3 bowel movements with lactulose. Given her recurrent acute on chronic anemia requiring blood t ransfusions, and the fact that her upper endoscopy continues to be delayed due to inpatient admissions, we will attempt to get an upper endoscopy today with the help of our colleagues in the GI bleed Team. MOSHE has resolved. Sree Brito M.D. - 01/22/2022 11:52 AM CDT MED 3 PROGRESS NOTE 31 y.o. female admitted 2 days ago with acute renal failure 2/2 decompensated liver cirrhosis. SUBJECTIVE She is sleepy today. She reports continuation of her chronic back pain. Her abdominal pain has mostly resolved after the paracentesis with 3 L removed. She had 3 bowel movements yesterday but has not had any today and she denies any dark stools. She denies any other concerns at this time. OBJECTIVE Temperature: [36.5 ??C-37 ??C] 37 ??C Resp Rate: [14-18] 14 Blood Pressure: (101-122)/(50-70) 116/55 SpO2: [94 %-97 %] 94 % Height: [157.5 cm] 157.5 cm Pulse Rate: [87-107] 107 Intake/Output Summary (Last 24 hours) at 01/22/2022 1152 Last data filed at 01/22/2022 0842 Gross per 24 hour Intake 1010 ml Output 1400 ml Net -390 ml PHYSICAL EXAM: GEN: jaundiced, ill-appearing. In no acute distress. Hypersomnolent on exam HEENT: Scleral icterus present. Moist mucous membranes. CARDS: Systolic murmur auscultated in the LUSB and RUSB, regular rate and rhythm. JVP within normal limits. PULM: Clear to auscultation bilaterally. ABD: mildly improved distention with shifting dullness. No tenderness to palpation. INTEG: Jaundiced. No visible rashes MSK: No joint contractures or deformities. Paraspinal tenderness to palpation around the lumbar spine. PV: Warm, well-perfused. NEURO: Moves all extremities spontaneously. PSYCH: Appropriate, cooperative. ASSESSMENT / PLAN Catia Carias is a 31 y.o. female with alcoholic cirrhosis and refractory ascites who is admitted for an MOSHE. # macrocytic anemia # thrombocytopenia # chronic pancreatitis This is likely due to her alcoholic liver cirrhosis. Her hemoglobin worsened to 6.0 today. She showsno signs of active variceal bleeding, no melena. Her B12 level was 621 in October of 2021 Her iron studies have not been checked since 2020 PLAN: - transfuse 1 unit pRBC - check ferritin, TIBC and iron - EGD ordered to assess for possible esophageal varices - daily CBCs - holding VTE prophylaxis for now due to low platelet count. # Failure Renal Acute (Acute Kidney Injury) (HCC) # ascites, refractory # alcoholic cirrhosis, decompensated # portal hypertension Patient is a 31-year-old with a past medical history of alcoholic cirrhosis and ascites on furosemide, spironolactone, and lactulose. Patient is presenting with an MOSHE that is most likely prerenal, andless likely hepatorenal as her creatinine is improving after paracentesis. Her paracentesis only showed 2 neutrophils, however this was after administration of ceftriaxone. Her abdominal pain has now resolved. Given the lack of pain and the paracentesis showing just to neutrophils, we will transition her back to ciprofloxacin 500 mg daily for SBP prophylaxis. Urinalysis in the ED negative for renal epithelial cells and infection. There is no evidence of hydronephrosis on CT. On 01/22 she was sleepy on exam and has not had any bowel movements despite lactulose treatment. [place] making test was completed 37 seconds indicating mild hepatic encephalopathy. PLAN: -stop ceftriaxone today - restart ciprofloxacin 500 mg daily for SBP prophylaxis -hold spironolactone and furosemide, to restart on discharge -Albumin 25% 1g/kg given, reassess fluid status daily. - trend creatinine, improving greatly -Continue lactulose and rifaximin - to titrate lactulose to 2-3 bowel movements per day and improved mental alertness Chronic Problems: # low back pain - lidocaine patch applications. # GERD - continue home pantoprazole and Flexeril # Patent foramen ovale last echocardiogram on 08/2021 demonstrated no significant change from when performed 03/2021. Last outpatient cardiology appointment on 10/03/2021 where it was reported that further cardiac assessmentwas not necessary at that time. PLAN: -no concerns at this time. Diet: Low-sodium diet Tubes/lines: PIV VTE prophylaxis: SCD's Code status: Full Code Disposition: Home Mobility: BMAT Level 4 (Able to stand and walk) Please TEXT PAGE MED 3 with any Questions Sree Little M.D. PGY-1 Associated attestation - Joshua Johnson M.D. - 01/22/2022 5:26 PM CDT I saw and evaluated the patient, participating in the judd portions of the service. I reviewed the resident/fellow???s note. I agree with the resident/fellow???s findings and plan. Schanz, Nora Wilkes Pharm.D., R.Ph. - 01/22/2022 6:05 AM CDT Pharmacist Progress Note Reason for admission: acute renal failure 2/2 decompensated liver cirrhosis PMH: alcoholic cirrhosis (undergoing transplant evaluation), GERD, chronic pancreatitis, rhinitis, HTN, anxiety OBJECTIVE Home medications: Held: acetaminophen, cirpofloxacin, furosemide, spironolactone Changed: none Unable to complete medication history. Patient having trouble staying awake and is delayed in response to questions. Renal Status Estimated Creatinine Clearance: 75.6 mL/min (A) (by C-G formula based on SCr of 1.09 mg/dL (H)). Meds Renally adjusted: none VTE Prophylaxis: none d/t low platelets (56) ASSESSMENT / PLAN Alcoholic cirrhosis w/ ascites: Recent hospitalization for hepatic encephalopathy and concern for GIbleed (01/09/2022). Most recent MELD 26. On Cipro prophylaxis at home. CT abd shows cirrhosis with sequela of portal hypertension. Paracentesis removed 3 L. Peritoneal fluid culture pending and fluid contains <250 PMNs. Of note, ceftriaxone given prior to paracentesis. Discussed transition back to Cipro ppx if low concern for SBP. Holding spironolactone and furosemide given current MOSHE. Continued lactulose and rifaximin. No bowel movement reported. Evaluate need for uptitration of lactulose to 2-3 bowel movements daily. MOSHE: Likely prerenal. Downtrending Scr 0.67 (baseline ~0.7 mg/dL). Cystatin C 2.27 with eGFR 27. Heme: Hemoglobin 6.2 (repeated 6.0) with low platelets (58). Holding DVT ppx. Nora Kelly Pharm.D., R.Ph. T Sree Little M.D. - 01/21/2022 4:16 PM CDT MED 3 PROGRESS NOTE 31 y.o. female admitted 1 days ago with acute renal failure 2/2 decompensated liver cirrhosis. SUBJECTIVE She received a paracentesis today with 3 L removed. OBJECTIVE Temperature: [36.5 ??C-37.4 ??C] 36.7 ??C Heart Rate: [90-97] 90 Resp Rate: [14-24] 14 Blood Pressure: (87-118)/(44-71) 104/67 SpO2: [90 %-99 %] 97 % Height: [157.5 cm] 157.5 cm Pulse Rate: [91-111] 91 Intake/Output Summary (Last 24 hours) at 01/21/2022 1616 Last data filed at 01/21/2022 1600 Gross per 24 hour Intake 790 ml Output 4112 ml Net -3322 ml PHYSICAL EXAM: GEN: jaundiced, ill-appearing. In no acute distress. HEENT: Scleral icterus present. Moist mucous membranes. CARDS: Systolic murmur auscultated, regular rate and rhythm. JVP within normal limits. PULM: Clear to auscultation bilaterally. ABD: Severe distention with shifting dullness. Generalized tenderness to palpation,worse in the LUQ. INTEG: Jaundiced. No visible rashes MSK: No joint contractures or deformities. Paraspinal tenderness to palpation around the lumbar spine. PV: Warm, well-perfused. NEURO: Moves all extremities spontaneously. PSYCH: Appropriate, cooperative. ASSESSMENT / PLAN Catia Carias is a 31 y.o. female with alcoholic cirrhosis and refractory ascites who is admitted for an MOSHE. # Failure Renal Acute (Acute Kidney Injury) (HCC) # ascites, refractory # alcoholic cirrhosis, decompensated # portal hypertension Patient is a 31-year-old with a past medical history of alcoholic cirrhosis and ascites on furosemide, spironolactone, and lactulose. Patient is presenting with an MOSHE that is most likely prerenal, andless likely hepatorenal as her creatinine is improving after paracentesis. Her paracentesis only showed 2 neutrophils, however this was after administration of ceftriaxone. She continues to have pain after the paracentesis. For this reason we will continue ceftriaxone for 5 days. She has been taking ciprofloxacin for SBP prophylaxis. Urinalysis in the ED negative for renal epithelial cells and infection. There is no evidence of hydronephrosis on CT. PLAN: -continue 5 day course of ceftriaxone showed only 2 neutrophils -hold spironolactone and furosemide -Albumin 25% 1g/kg given, reassess fluid status daily. - trend creatinine -Continue lactulose and rifaximin Chronic Problems: # macrocytic anemia # thrombocytopenia # chronic pancreatitis This is likely due to her alcoholic liver cirrhosis.Her hemoglobin is currently at her baseline there is no evidence of bleeding. PLAN: - daily CBCs - holding VTE prophylaxis for now due to low platelet count. # low back pain - lidocaine patch applications. # GERD - continue home pantoprazole and Flexeril # Patent foramen ovale last echocardiogram on 08/2021 demonstrated no significant change from when performed 03/2021. Last outpatient cardiology appointment on 10/03/2021 where it was reported that further cardiac assessmentwas not necessary at that time. PLAN: -no concerns at this time. Diet: Low-sodium diet Tubes/lines: PIV VTE prophylaxis: SCD's Code status: Full Code Disposition: Home Mobility: BMAT Level 4 (Able to stand and walk) Please TEXT PAGE MED 3 with any Questions Sree Little M.D. PGY-1 Associated attestation - Joshua Johnson M.D. - 01/22/2022 8:29 AM CDT I saw and evaluated the patient, participating in the judd portions of the service. I reviewed the resident/fellow???s note. I agree with the resident/fellow???s findings and plan. Virginia Handley M.S., R.N. - 01/21/2022 12:40 PM CDT Care Management Consult completed by SOPHIA Ramsey, SIMULATION SOFTWARE ENGINEER on 01/12/22. SUBJECTIVE Referral Data Discharge Planning: Reconnection of [facility] patient declined additional resources. Anticipated Needs Home Health Care Reconnection OBJECTIVE Patient on 6 D 744 ASSESSMENT / PLAN Assessment The Person(s) Present During Interview: patient appear to have insight into the patient's needs at this time and are planning appropriately for discharge needs. They report agreement with the below plan with no further questions at this time. Plan Patient to discharge with home health care. Home Medical Care - Admitted Since 01/20/2022 Service Provider Selected Services Address Phone Fax Patient Preferred [facility] [address], [facility] [id number] -- Contact: Intake NURSING: - Complete documentation in the Discharge Navigator including Nursing Report Info and Facility/NextLevel of Care Info - Call report and arrange for the patient???s first visit. - Send required packet of dismissal information with patient, including After Visit Summary and advance directive. PRIMARY SERVICE: - Please provide a non-[facility] home health order for resumption of previous services by home health care for alf once a week medication management on the After Visit Summary. If additional services are needed, please provide order. - Communicate with the patient???s local primary care provider by telephone for writing of home care orders. This needs to be done to help prevent discharge delays. A copy of the After Visit Summary needs to be sent there as well. CASE MANAGEMENT: -Reviewed patient's insurance coverage for the services noted above. The patient appear(s) to have an understanding of this. -Will continue to follow and assist if needs arise. Virginia Handley M.S., R.N. Nora Kelly, PharmSumaD., R.Ph. - 01/21/2022 6:47 AM CDT Pharmacist Progress Note Reason for admission: MOSHE PMH: alcoholic cirrhosis (undergoing transplant evaluation), GERD, chronic pancreatitis, rhinitis, HTN, anxiety OBJECTIVE Home medications: Held: acetaminophen, cirpofloxacin, furosemide, spironolactone Changed: none Will attempted to complete to medication history today. Renal Status Estimated Creatinine Clearance: 66.5 mL/min (A) (by C-G formula based on SCr of 1.24 mg/dL (H)). Meds Renally adjusted: none VTE Prophylaxis: none d/t low platelets (56) ASSESSMENT / PLAN Alcoholic cirrhosis w/ ascites: Elevated AST (60) and alk phos (306) with low protein and albumin (3.3). Recent hospitalization for hepatic encephalopathy and concern for GI bleed (01/09/2022). Most recent MELD 26. CT abd shows cirrhosis with sequela of portal hypertension. Plans for paracentesis today.Holding spironolactone and furosemide given current MOSHE. Ciprofloxacin transitioned to ceftriaxone (recommend addition of stop date if known). Continued lactulose and rifaximin. MOSHE: Likely prerenal. Downtrending Scr 1.24 (baseline ~0.7 mg/dL). Cystatin C 2.27 with eGFR 27. Heme: Hemoglobin (7.4) with low platelets (56). Holding DVT ppx. Nora Kelly Pharm.D., R.Ph. documented in this encounter H&P Notes Kathy Ibrahim M.D. - 01/20/2022 11:45 PM CDT T Medicine 3 ([facility]) Senior Admission Note SUBJECTIVE CHIEF COMPLAINT: MOSHE and abdominal pain HISTORY OF PRESENT ILLNESS Christelle Carias is a 31 year old female with past medical history pertinent for alcoholic cirrhosis with ascites and most recent MELD score of 26 on furosemide, spironolactone, and lactulose, chronic pancreatitis, GERD on pantoprazole, and back muscles spasms on cyclobenzaprine, who presents with 1 day LUQ pain and abnormal lab results earlier today. Medical comorbidities include decompensated alcoholic cirrhosis (diagnosed 01/2021), portal hypertension and splenomegaly, ascites, chronic pancreatitis, chronic pain syndrome, GERD, migraines, anxiety,and depression. Today she presented to outpatient clinic for follow-up with primary care after her recent discharge from the hospital on 01/14. During her last hospitalization she was found to have hepatic encephalopathy with concern for potential GI bleed versus infection. She was diagnosed was spontaneous bacterialperitonitis and treated with a 5 day course of ceftriaxone. She was changed to ciprofloxacin for SBPprophylaxis because she developed SBP while on Bactrim. She reports she was discharged on 50 mg of spironolactone instead of 100.she feels her legs are very swollen today.Today at her outpatient appointment she was found to have K was 5.3, her BUN as 37 and her creatinine was 1.31 (baseline creatinine0.46), with a BUN:creatinine ratio of 28. She was asked to report to the emergency room to receive an albumin infusion and to hold her diuretics. She also noted that she had LUQ pain started earlier today, and she describes it as sharp but fluctuating in intensity, with no resolution of pain. The pain does radiate to the back and down to her left flank. In the emergency room: Hepatic function panel noted to have a bilirubin of 8.6 total direct 4.6, AST 60, ALT 306, ALT within normal limits BMP revealed Lactate within normal limits Creatinine 1.24, potassium on recheck plasma 5.2 CBC remarkable for hemoglobin of 7.4, platelets 56, white blood cell count 5.4 CT noncontrast obtained to rule out renal stone given her flank pain on presentation was negative for kidney stone. However it did reveal gallstones with biliary sludge Urinalysis with no renal epithelial cells or evidence of UTI OBJECTIVE VITAL SIGNS Temperature: [35.9 ??C-37.4 ??C] 36.7 ??C Resp Rate: [20-24] 20 Blood Pressure: (104-118)/(48-71) 118/48 SpO2: [93 %-97 %] 93 % Height: [159 cm] 159 cm Weight: [64.1 kg] 64.1 kg BSA (Calculated - sq m): [1.68 sq meters] 1.68 sq meters BMI (Calculated): [25.4 kg/m??] 25.4 kg/m?? Pulse Rate: [93-111] 109 PHYSICAL EXAM General: Appears mildly uncomfortable and appears to be stated age. No acute distress Eyes: scleral icterus ENT: Moist mucosal membranes Respiratory: Normal breathing effort lungs clear to auscultation bilaterally Cardio: Normal rate regular rhythm with 3/6 systolic murmur no rubs or gallops. 1+ pitting edema Abdomen: Soft, distended tender in RUQ negative castañeda sign, no guarding or peritoneal signs, splenomegaly palpable in tender to palpation Skin: Juan S Extremities: Warm well perfused, no muscular atrophy Neuro: No facial asymmetry, moving all extremities Mental status: Awake and oriented x3, affect appropriate ASSESSMENT / PLAN Christelle Carias is a 31 year old female with past medical history pertinent for alcoholic cirrhosis with ascites and most recent MELD score of 26 on furosemide, spironolactone, and lactulose, chronic pancreatitis, GERD on pantoprazole, and back muscles spasms on cyclobenzaprine, who presents with 1 day LUQ pain and abnormal lab results earlier today consistent with MOSHE. During her time in the emergency room her abdominal pain change from left upper quadrant to diffuse abdominal pain. I think would be reasonable to repeat paracentesis both for therapeutic and diagnostic purposes. She recently had been diagnosed with SBP despite being on Bactrim and changed to prophylaxis with Cipro. She has both diffuse abdominal pain and focal worse in the right upper quadrant and left upper quadrant along her spleen. Query whether not pain that she is experiencing in her spleen could be secondary to splenic infarct. # alcoholic cirrhosis, MELD-Na score: 26 # portal hypertension # hepatic encephalopathy hx # chronic pancreatitis Paracentesis. Therapeutic and diagnostic, rule out SBP Ceftriaxone Trend hepatic function panel Continue lactulose and rifaximin #MOSHE query prerenal vs hepatorenal Urinalysis on admission negative for renal epithelial cells and infection No evidence of hydronephrosis on CT scan Prerenal versus hepatorenal Albumin 25% 1 g/kg (give 75 grams) for albumin challenge Hold lasix/spironolactone Cystatin c Trend BMP # anemia/thrombocytopenia -monitor CBC daily This is a senior resident supervisory note. Please refer to the excellent documentation of Dr. Dr. Becerril for complete details. Patient will be formally staffed with the supervising cosmetic consultant in the morning. Please page the [facility] 3 ([facility]) service pager with any questions. Kathy Ibrahim M.D. Internal Medicine, PGY-3 T Matthew Becerril M.D. - 01/20/2022 11:05 PM CDT MED 3 ADMISSION NOTE SUBJECTIVE Catia Carias is a 31 y.o. female with a past history of alcoholic cirrhosis and ascites admitted with an MOSHE Past medical history: Decompensated alcoholic cirrhosis. Currently undergoing transplant evaluation Ascites Alcohol use disorder, in remission with last alcoholic drink reported July, Portal hypertension Chronic pancreatitis Chronic pain syndrome GERD Migraine Anxiety and depression History of Presenting Illness: Patient presents with a 1 day history of left upper quadrant pain and hyperkalemia (5.3) noted on outpatient labs earlier today. During her last hospitalization she was found to have hepatic encephalopathy with concern for potential GI bleed versus infection. She was diagnosed was spontaneous bacterial peritonitis and treated with a 5 day course of ceftriaxone. Reports she was discharged on 50 mg of spironolactone instead of 100.she feels her legs are very swollen today. Patient reports that she has been having LUQ abdominal pain that began 1 day previously. She describes it as a stabbing pain that does not radiate. She reports some nausea and one episode of emesis. No blood was noted. She denies any diarrhea Over the past day, she has also had decreased oral intake. She denies shortness of breath or chest pain. Social History: Living situation: Lives with boyfriend Work: Does not work Alcohol: No current use. Smoking: No In the ED: Patient's pain was controlled with fentanyl. Labs: CBC significant for macrocytic anemia with a hemoglobin of 7.4, which appears to be at baseline. Thrombocytopenia the platelet , albumin at 56, which appears to be around baseline over the past severalmonths. CMP significant for an elevated creatinine at 1.24 (baseline around 0.7). Potassium WNL at 5.2. Bilirubin elevated at 10.5, unchanged from previous measurements. Total protein decreased at 5.4. Lipase not elevated at 26 Imaging: CT abdomen and pelvis: No urinary calculi or hydronephrosis. Cirrhosis with sequela of portal hypertension. Multiple Josesito column nerve compression deformities new since last image in October of 2021. REVIEW OF SYSTEMS: See HPI. Negative except as noted in the HPI. OBJECTIVE PHYSICAL EXAM: GEN: Overall jaundice and ill-appearing. In no acute distress. HEENT: Scleral icterus present. Moist mucous membranes. CARDS: Systolic murmur auscultated, regular rate and rhythm. JVP within normal limits. PULM: Clear to auscultation bilaterally. ABD: Significant distention with shifting dullness. Generalized tenderness to palpation, but worse in the left upper quadrant. INTEG: Jaundiced. No visible rashes MSK: No joint contractures or deformities. Paraspinal tenderness to palpation around the lumbar spine. PV: Warm, well-perfused. Palpable pulses in bilateral lower extremities. NEURO: Moves all extremities spontaneously. PSYCH: Appropriate, cooperative. ASSESSMENT / PLAN Catia Carias is a 31 y.o. female with alcoholic cirrhosis and refractory ascites who is admitted for an MOSHE. #1 Failure Renal Acute (Acute Kidney Injury) (HCC) # alcoholic cirrhosis, decompensated # ascites, refractory # portal hypertension # macrocytic anemia # thrombocytopenia # chronic pancreatitis # low back pain # GERD # Patent foramen ovale Acute Problems: # Failure Renal Acute (Acute Kidney Injury) (HCC) # ascites, refractory # alcoholic cirrhosis, decompensated # portal hypertension - Patient is a 31-year-old with a past medical history of alcoholic cirrhosis and ascites furosemide, spironolactone, and lactulose. She is being admitted today with of the upper quadrant abdominal pain, elevated creatinine, and an increased potassium level measured in the outpatient setting. Patient is presenting with an MOSHE that is suspected to be prerenal versus hepatorenal. With increased abdominal pain, there is also concern for SBP. She has been taking ciprofloxacin for prophylaxis. Urinalysisin the ED negative for renal epithelial cells and infection. There is no evidence of hydronephrosis on CT. Plan: Will plan for paracentesis morning with cell count, albumin, protein and culture We will start ceftriaxone We will hold spironolactone and furosemide Albumin 25% 1g/kg Continue lactulose and rifaximin Chronic Problems: # macrocytic anemia # thrombocytopenia # chronic pancreatitis - likely secondary to liver disease - hemoglobin unchanged from last admission. Currently no evidence of bleeding. - daily CBCs - holding VTE prophylaxis for now due to low platelet count. # low back pain - lidocaine patch applications. # GERD - continue home pantoprazole and Flexeril # Patent foramen ovale - last echocardiogram on 08/2021 demonstrated no significant change from when performed 03/2021. Last outpatient cardiology appointment on 10/03/2021 where it was reported that further cardiac assessment was not necessary at that time. Diet: low sodium diet Tubes/lines: PIV VTE prophylaxis: enoxaparin Code status: Prior Full Code Disposition: Home Mobility: BMAT Level 4 (Able to stand and walk) Please text page Med3 with any Questions Associated attestation - Joshua Johnson M.D. - 01/21/2022 10:46 AM CDT I saw and evaluated the patient, participating in the judd portions of the service. I reviewed the resident/fellow???s note. I agree with the resident/fellow???s findings and plan. 1. Acute kidney injury 2. Refractory ascites 3. Decompensated alcoholic cirrhosis with associated macrocytic anemia and thrombocytopenia 4. Hyperbilirubinemia Patient has a history of SBP on SBP prophylaxis, history of recurrent paracentesis, patient states that when she has significant volume remove she does have relief of abdominal pain, she was admitted for abdominal pain and concern for SBP. Agree with ceftriaxone and albumin. Proceed with diagnostic and therapeutic paracentesis. Will also hold oral diuretics given MOSHE, will monitor for improvement, if it does not improve with albumin, can trial IV fluids. documented in this encounter Consult Notes Sweetie Greer P.T., D.P.T. - 01/27/2022 1:03 PM CDT Physical Therapy Inpatient Evaluation/Treatment SUBJECTIVE Patient's Name: Catia Carias Referring/Attending Provider: Ervin Mazariegos M.D. Medical Diagnosis: Cirrhosis Alcoholic (HCC) [K70.30] Failure Renal Acute (Acute Kidney Injury) (HCC) [N17.9] Ascites [R18.8] Alcohol Use Unspecified With Unspecified Alcohol Induced Disorder (HCC) [F10.99] Hepatic Failure Unspecified Without Coma (HCC) [K72.90] Reason for Referral: PT Evaluate and Treat general acute Onset Date: 01/20/22 Payor: [facility] CARE / Plan: [facility] CARE RESTRICTED PLAN / Product Type: Medicaid HMO / PERTINENT MEDICAL / SURGICAL HISTORY: Patient Active Problem List Diagnosis Cirrhosis Alcoholic (HCC) Acute Respiratory Failure (HCC) Anemia Other Specified Behavioral And Emotional Disorders With Onset Usually Occurring In Childhood And Adolescence Ascites Cannabis Mild Use Disorder (Abuse) Uncomplicated Gastroesophageal Reflux Disease Without Esophagitis Hepatic Failure Unspecified Without Coma (HCC) Long QT Syndrome Pancreatitis Chronic (HCC) Rhinitis Allergic Patent Foramen Ovale (HCC) Alcohol Use Unspecified With Unspecified Alcohol Induced Disorder (HCC) Thrombocytopenia (HCC) Deficiency Coagulation Acquired (HCC) Hypertension Portal (HCC) Pretransplant Recipient Evaluation Exam Deficiency 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 TENDON REPAIR Left left foot per patient History of Present Illness: admitted due to acute renal failure secondary to decompensated liver cirrhosis; s/p EGD with 4 non-bleeding varices banded and paracentesis Prior Function/Occupational Profile Dominant Hand: Right Lives With: Significant other Receives Help From: Family ADL Assistance: Required assistance ADL Assistance Comments: Assistance for walking to/from the bathroom; independent with dressing and showering IADL/Homemaking Assistance: Required assistance IADL/Homemaking Assistance Comments: Assistance for all homemaking tasks Driving: Independent Driving Comments: Has not driven in awhile Occupational Role: Unemployed Occupational Role Comments: Has not worked >1 year Prior Mobility/Functional Transfers Level of Vilas: Modified independent Gait Devices/Wheelchair Used: Front wheeled walker Gait Devices/Wheelchair Used Comments: Using for approximately 2 weeks Home Equipment Home Adaptive Equipment: None Gait Devices Owned: Front-wheeled walker Bathroom Equipment: Shower chair with back Home Living Type of Home: House Home Layout: One level Home Access: Stairs to enter with rails Entrance Stairs: Rails: Right Entrance Stairs: Number of Steps: 20-25 total Bathroom Shower/Tub: Tub/shower unit Tub/shower unit location: Main floor Bathroom Toilet: Standard Bathroom Accessibility: Yes How Accessible: Accessible via walker Dominant Hand: Right Family/Caregiver Present: No Patient/Caregiver Goals: Patient wishes to return home Patient Comments: Patient agreeable to physical and occupational therapy co- evaluation and treatmentsession; patient ultimately endorsed fatigue and began crying sitting back pain however did not quantify on 10 point scale; only agreeable to mobilize in room this date Precautions Other Precautions: Fall risk; spinal precautions for comfort; safety awareness Fall Risk (65 and older) Fall in the last 12 months: No OBJECTIVE Vitals not formally assessed during session. No concerns during chart review and the patient had no signs or symptoms consistent with vital changes during therapy session. Cognition Arousal/Alertness: Delayed responses to stimuli Attention: Impairments noted Sustained: Mild (Tangential) Initiation: No difficulty with initiation Following Commands: One Step Commands One Step Commands: Follows one step commands consistently Safety/Judgment: Impairments noted Self-monitoring/Self-correct Consistently: Mild Insight/Awareness of Deficits: Mild Vision/Sensation Basic Assessment Baseline Vision/Correction: Wears contacts Sensation/Perception Expanded Assessment Paresthesia Comments: Baseline numbness/tingling in all 4 extremities General ROM / Strength Screening ROM - Upper Extremity Screen: Addressed, no concerns noted ROM - Lower Extremity Screen: Impaired right & left Strength - Upper Extremity Screen: Impaired right & left Strength - Upper Extremity Screen Comments: Generalized weakness Strength - Lower Extremity Screen: Impaired right & left Strength - Lower Extremity Screen Comments: Generalized weakness Bed Mobility - Supine to Sit # of Assistants: 0 Level of Assistance: Modified Independent Device: None Comments: Patient able to complete without physical assistance however did require increased time and effort; patient complained regarding head of bed being flat however educated regarding practicing per patient's home set up Bed Mobility - Sit to Supine # of Assistants: 0 Level of Assistance: Modified Independent Device: None Comments: Able to complete without physical assistance but with increased time and effort Sit to Stand Transfers # of Assistants: 1 Transfer Surface: Bed Transfer Equipment: Gait belt, Front wheeled walker Level of Assistance: Supervision/set-up Assessment/Delivery: Assessed, Educated, Instructed Comments: Patient stood without physical assistance with poor hand placement as pulls up bilaterallyfrom front wheeled walker despite using 1 for greater than 2 weeks; education provided for improvinghand placement for safety Stand to Sit Transfers # of Assistants: 1 Transfer Equipment: Gait belt, Front wheeled walker Level of Assistance: Supervision/set-up Assessment/Delivery: Assessed, Instructed, Educated Comments: Patient sat without physical assistance with poor hand placement as does not reach back for sitting surface and keeps hands on front wheeled walker despite using 1 for greater than 2 weeks; education provided for improving hand placement for safety Toilet Transfers Toilet Transfers Comments: Refused toilet transfer Balance Static Sitting-Balance: Good (Maintains balance without support) Dynamic Sitting-Balance: Fair (Maintains balance with handheld/contact guard assistance) Static Standing-Balance: Fair (Maintains balance with handheld/contact guard assistance) Dynamic Standing-Balance: Fair (Maintains balance with handheld/contact guard assistance) Balance Comments: Benefiyts from front wheeled walker Gait Assessment/Training Distance (m): 5 m Surface: Even, Smooth/hard Device: Gait belt, Front-wheeled walker # of Assistants: 1 Level of Assistance: Supervision/Set-up, Contact guard assistance Quality/Pattern: Guarding, Shuffling, Decreased heel strike, Decreased toe off, Decreased base of support Assessment of Gait: Patient demonstrated decreased stride and step length with increased trunk flexion, downward gaze, decreased toe clearance bilaterally with decreased gait speed noted Cueing Provided: Tactile, Verbal Training/Intervention: Verbal cues provided for upright standing posture however patient tangential throughout upright and ambulation with minimal corrections noted; tactile cues provided intermittently at gait belt for safety and stability Response: Fair tolerance; patient declined out of room ambulation sitting feeling like she had a ???fluid shift??? Stairs/Curb Training/Intervention: Patient declined stair negotiation this date-reported that she would be agreeable tomorrow Activity Tolerance Endurance: Tolerates less than 10 min of activity Sitting Tolerance: Fair Standing Tolerance: Fair - limited by back pain Patient Education The patient/family educated on safe transfer techniques with functional mobility/activity. Educated patient on the progression of activity with frequent ambulation in the hallway with nursingstaff throughout the day for improvement towards strength and functional mobility. Discussed continued physical therapy services in the hospital for improvement towards independence. The following coordination of care occurred today: Co-treatment with: Occupational Therapy Patient's nurse was contacted and patient's status was discussed, Discussed patient's care with OT Inpatient AVS Complete - PT: Yes Inpatient AVS Completion Date - PT: 01/27/22 Patient was left in bed at end of session with call light in reach, all needs met and questions answered. Outcome Measures [facility] Inpatient Short Form: -[facility] Basic Mobility (V.2) How much help from another person do you currently need???If the patient hasn't done an activity recently, how much help from another person do you think he/she would need if he/she tried? 1. Turning from your back to your side while in a flat bed without using bedrails?: None 2. Moving from lying on your back to sitting on the side of a flat bed without using bedrails?: None 3. Moving to and from a bed to a chair (including a wheelchair)?: A Little 4. Standing up from a chair using your arms (e.g., wheelchair, or bedside chair)?: A Little 5. To walk in hospital room?: A Little 6. Climbing 3-5 steps with a railing?: A Lot AM-[facility] Basic Mobility (V.2) Raw Score: 19 AM-[facility] Basic Mobility (V.2) Standardized Score: 42.48 Interpretation: Clinicians answer the -[facility] Inpatient Short Form based on observed patient activityand/or clinical judgement (ie. patient can be scored without physically performing each activity) Based on scoring guidelines using the raw score value: Those going to home had an average score at or above 18 Those going to facility had an average score at or below 17 Assessment Discharge Therapy Needs - PT: Ongoing skilled physical therapy (Continuation of home health care) Skilled therapy can include physical therapy provided by home health, outpatient clinic, or a post-acute facility. The location of these services is determined by the patient's care team in partnershipwith patient/family. Level of Care Needed - PT: Assistance with stairs, Physical assistance needed, Assistance with walking and moving around the home, Cognitive assistance needed Equipment Recommended - PT: Front-wheeled walker Patient owns Barriers to Discharge Home: Current functional status, Fall risk, Inaccessible home environment Clinical Impression of today's session: Patient is a 31-year-old who was admitted on 01/20/2022 due to acute renal failure secondary to decompensated liver cirrhosis; s/p EGD with 4 non-bleeding varices banded and paracentesis. Most recently, patient has been utilizing a front wheeled walker for upright mobility, requiring assistance from her significant other for short distance ambulation/self cares as needed, has been relying on her significant other for all homemaking tasks, has not recently been driving but was able to prior to hurting her back, and is currently unemployed. Currently, she is mobilizing with modified independence to contact guard assistance of 1 person with use of a front wheeled walker for all upright mobility. She declined attempting stair negotiation this date but was agreeable to attempting tomorrow. Patient demonstrates limited activity tolerance, impaired functional mobility, need for assistance for all upright mobility, impaired balance and postural control, fatigue, weakness, decreased endurance, impaired cognition, and pain which is not her prior level of function, negatively impacts her ability to safely return to her home environment or participate in daily tasks, and places her at an increased risk for falls. Patient continues to require skilled physical therapy in order to optimize function, strength, and to address the above mentioned limitations. Mobility Recommendations: -Utilize contact guard assistance of 1 person with front wheeled walker for mobilization in order toassist patient to chair at least 3x/day/for all meals for pulmonary hygiene and safety -Encourage ambulation at least 3-4x/day Rehab potential: Ms. Carias has Fair potential to achieve established physical therapy goals within the time frame outlined below. Tiered PT Evaluation Codes: Comorbid Conditions: Other (Comment), Mental health disorder (Alcohol abuse disorder; alcoholic cirrhosis) Personal Factors: Needs assistive device, Living situation, Motivation level, Sedentary lifestyle, Safety awareness, Balance impairment, Age Examination elements: 4+ Clinical Presentation: Evolving Clinical Decision Making: Moderate complexity clinical decision making Functional Goals: PT Inpatient Goals PT Goal #1: Patient will perform bed mobility with modified independence without hospital bed features in order to improve functional mobility PT Goal #1 Status: Achieved PT Goal #2: Patient will perform transfers from various surfaces with least restrictive assistive device and modified independence in order to return to prior level of function PT Goal #3: Patient will ambulate 35+m with least restrictive assistive device and modified independence in order to progress towards prior level of function PT Goal #4: Patient will negotiate 10+ stairs with contact guard assistance of 1 person and use of single rail in order to access their home environment Plan Patient agrees with the plan of care and goals. Treatment Plan: Plan: Plan of care initiated PT Amount: 1 visit per day PT Frequency: Follow-up visit only PT Inpatient Duration : Until goals are met Requires Inpatient Follow-Up: Yes PT - Next Inpatient Appointment: 01/28/22 PT Plan Comments: Progress [id number] transfers; progress ambulation; stair negotiation Treatment interventions may include: Treatment/Interventions: Therapeutic functional activity, Gait training, Self- care/home management Billing: Time Spent with Patient Evaluations PT Eval - Mod Complexity: 10 min Therapeutic Interventions Therapeutic Activity (min): 16 min Time Tracking Total Timed Units (min): 16 min Total Treatment Time (min): 26 min ([id number]; Co-evaluation and treatment session with OT in order to optimize patient care. The patient benefitted from having two skilled therapists present in order to maximize mobility progression and maximize safety. OT and PT addressed different aspects of mobility during treatment session) Allie Greer P.T., D.P.T. Alysia Baeza M.S. - 01/27/2022 1:03 PM CDT Occupational Therapy Acute Hospital Inpatient Evaluation/Treatment SUBJECTIVE Patient's Name: Catia Carias Referring/Attending Provider: Ervin Mazariegos M.D. Medical Diagnosis: Cirrhosis Alcoholic (HCC) [K70.30] Failure Renal Acute (Acute Kidney Injury) (HCC) [N17.9] Ascites [R18.8] Alcohol Use Unspecified With Unspecified Alcohol Induced Disorder (HCC) [F10.99] Hepatic Failure Unspecified Without Coma (HCC) [K72.90] Reason for Referral: Occupational Therapy Evaluation and Treatment OT General Acute Onset Date: 01/20/22 Payor: [facility] [place] [facility] / Plan: [facility] [place] [facility] RESTRICTED PLAN / Product Type: Medicaid HMO / PERTINENT MEDICAL / SURGICAL HISTORY: Patient Active Problem List Diagnosis Cirrhosis Alcoholic (HCC) Acute Respiratory Failure (HCC) Anemia Other Specified Behavioral And Emotional Disorders With Onset Usually Occurring In Childhood And Adolescence Ascites Cannabis Mild Use Disorder (Abuse) Uncomplicated Gastroesophageal Reflux Disease Without Esophagitis Hepatic Failure Unspecified Without Coma (HCC) Long QT Syndrome Pancreatitis Chronic (HCC) Rhinitis Allergic Patent Foramen Ovale (HCC) Alcohol Use Unspecified With Unspecified Alcohol Induced Disorder (HCC) Thrombocytopenia (HCC) Deficiency Coagulation Acquired (HCC) Hypertension Portal (HCC) Pretransplant Recipient Evaluation Exam Deficiency 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 TENDON REPAIR Left left foot per patient History of Present Illness:Admitted due to acute renal failure secondary to decompensated liver cirrhosis; s/p EGD with 4 non-bleeding varices banded and paracentesis. Occupational Profile: Prior Function/Occupational Profile Dominant Hand: Right Lives With: Significant other Receives Help From: Family ADL Assistance: Required assistance ADL Assistance Comments: Boyfriend assists with bathroom mobility; however, independent with toileting tasks. Independent with dressing and showering with increased time. Recently purchased a shower chair with back but has not had the opportunity to use it yet. IADL/Homemaking Assistance: Required assistance IADL/Homemaking Assistance Comments: Boyfriend assistance with all homemaking tasks and home health nurse assists with medication management. Driving: Independent Driving Comments: Has not driven in a while. Occupational Role: Unemployed Occupational Role Comments: Has not worked >1 year. Leisure Interests: Photography, yoga, make videos, write, paint, color Prior Mobility/Functional Transfers Level of [place]: Modified independent Gait Devices/Wheelchair Used: Front wheeled walker Gait Devices/Wheelchair Used Comments: Using for approximately 2 weeks Home Living Type of Home: House Home Layout: One level Home Access: Stairs to enter with rails Entrance Stairs: Rails: Right Entrance Stairs: Number of Steps: 20-25 total Bathroom Shower/Tub: Tub/shower unit Tub/shower unit location: Main floor Bathroom Toilet: Standard Bathroom Accessibility: Yes How Accessible: Accessible via walker Home Equipment Home Adaptive Equipment: None Gait Devices Owned: Front-wheeled walker Bathroom Equipment: Shower chair with back Family/Caregiver Present: No Patient/Caregiver Goals: To return home with boyfriend support. Patient Comments: Patient was supine in bed upon arrival, reporting of chronic ongoing back pain andappeared tearful with attempt for activity. Agreeable to OT/PT for short distance mobility within the room. Precautions Other Precautions: Fall risk; spinal precautions for comfort; safety awareness OBJECTIVE Vitals not formally assessed during session. No concerns during chart review and the patient had no signs or symptoms consistent with vital changes during therapy session. Vision/Sensation Basic Assessment Baseline Vision/Correction: Wears contacts Sensation/Perception Expanded Assessment Paresthesia Comments: Baseline numbness/tingling in all 4 extremities Activity Tolerance Endurance: Tolerates less than 10 min of activity Sitting Tolerance: Fair Standing Tolerance: Fair - limited by back pain Gross Hand Function Right Hand Gross Grasp: Functional Left Hand Gross Grasp: Functional Right Hand Coordination: Functional Left Hand Coordination: Functional Balance Static Sitting-Balance: Good (Maintains balance without support) Dynamic Sitting-Balance: Fair (Maintains balance with handheld/contact guard assistance) Static Standing-Balance: Fair (Maintains balance with handheld/contact guard assistance) Dynamic Standing-Balance: Fair (Maintains balance with handheld/contact guard assistance) General ROM / Strength Screening ROM - Upper Extremity Screen: Addressed, no concerns noted ROM - Lower Extremity Screen: Impaired right & left ROM - Lower Extremity Screen Comments: Secondary to back pain Strength - Upper Extremity Screen: Impaired right & left Strength - Upper Extremity Screen Comments: Generalized weakness Strength - Lower Extremity Screen: Impaired right & left Strength - Lower Extremity Screen Comments: Generalized weakness Cognition Cognitive assessment method: Therapist observations, Cognitive screening results Arousal/Alertness: Delayed responses to stimuli Attention: Impairments noted Sustained: Mild (Tangential) Initiation: No difficulty with initiation Orientation: Oriented X4 Following Commands: One Step Commands One Step Commands: Follows one step commands consistently Safety/Judgment: Impairments noted Self-monitoring/Self-correct Consistently: Mild Insight/Awareness of Deficits: Mild Cognition Comments: Per OT note on 01/14/22, Administered Orientation Log (O- Log) and Cognitive Log (Cog-Log) due to confusion present on admission. Patient scored 30/30 on the O-Log and 25/30 on the Cog-Log. Patient demonstrated the greatest challenge with the visuospatial and sequencing item on the Cog-Log. Patient appears to be planning appropriately for discharge and feels her cognitive status has returned to baseline. Bed Mobility - Supine to Sit # of Assistants: 1 Level of Assistance: Modified Independent Device: None Comments: Utilized log roll technique for spinal protection. Effortful and extended time needed but no physical assistance required. Bed Mobility - Sit to Supine # of Assistants: 1 Level of Assistance: Modified Independent Device: None Comments: Effortful and extended time needed but no physical assistance required. Sit to Stand Transfers # of Assistants: 1 Transfer Surface: Bed Transfer Equipment: Gait belt, Front wheeled walker Level of Assistance: Supervision/set-up Assessment/Delivery: Assessed, Educated Comments: Standby assist for safety but no physical assistance required and no loss of balance noted. Benefitted from education for proper hand placement. Stand to Sit Transfers # of Assistants: 1 Transfer Surface: Bed Transfer Equipment: Gait belt, Front wheeled walker Level of Assistance: Supervision/set-up Assessment/Delivery: Assessed, Educated Comments: Fair eccentric control. Benefitted from education for proper hand placement. Toilet Transfers # of Assistants: 1 Transfer Approach: Ambulating Transfer Equipment: Front wheeled walker, Other (comment) (Gait belt) Level of Assistance: Supervision/set-up Assessment/Delivery: Assessed Toilet Transfers Comments: Standby assist for safety but no physical assistance required and no lossof balance noted. Patient declined participation in toilet transfers secondary to back pain and denies questions/concerns regarding toileting tasks upon returning home. Grooming Grooming Delivery: Assessed Grooming Comments: Patient was able to stand at the sink briefly and verbalize her routine at home but politely declined participation secondary to pain. Patient reports of using one-handed techniques for additional upper extremity support with the front wheeled walker. She also reports of relying on the sink for additional support as needed during bilateral manual tasks. Patient reports she feels comfortable continuing with her grooming routine upon returning home. Bathing Bathing Delivery: Educated Bathing Comments: Educated on tub transfer bench and long-handled sponge to optimize safety, occupational performance, and tub transfers. Patient was understanding and acknowledged trying the shower chair with back with the assistance from her boyfriend and considering the tub transfer bench as needed. LE Dressing LE Dressing Location: Seated on edge of bed LE Dressing Delivery: Assessed LE Dressing Items Included: Socks, Shoes LE Dressing Level of Assistance: Total assistance, Independent LE Dressing Comments: Total assistance required to don/doff socks while seated edge of bed but patient reports she can complete this task using a modified figure four technique while supine in bed within pain-free movements. Patient was able to don/doff slippers sitting edge of bed independently. Patient declined questions/concerns regarding dressing tasks. ADL Comments ADL Comments: Educated patient on the role of occupational therapy in the acute care setting. Initiated collaborative discussion with patient regarding previous supports and participation in activitiesof daily living. Facilitated discharge planning discussion with patient. Educated on fall preventionand need for gait belt for transfers. Team Communication: Patient's nurse was contacted and patient's status was discussed, Discussed patient's care with PT Co-treatment with: Physical Therapy Inpatient AVS Complete - OT: Yes Inpatient AVS Completion Date - OT: 01/27/22 Outcome Measures [facility] Inpatient Short Form: Putting on and taking off regular lower body clothing?: A Little Putting on and taking off regular upper body clothing?: None Taking care of personal grooming such as brushing teeth?: A Little Bathing (including washing, rinsing, drying)?: A Little Toileting, which includes using toilet, bedpan, or urinal?: A Little Eating meals?: None Daily Activities Raw Score (max 24): 20 Daily Activities Standardized Score: 42.03 Interpretation: Clinicians answer the [facility] Inpatient Short Form based on observed patient activityand/or clinical judgement (ie. patient can be scored without physically performing each activity) Based on scoring guidelines using the raw score value: Those going to home had an average score at or above 18 Those going to facility had an average score at or below 17 Patient was left in bed at end of session with call light in reach, all needs met and questions answered. Assessment Discharge Therapy Needs - OT: Ongoing skilled occupational therapy (Patient may benefit from home safety assessment.) Skilled therapy can include occupational therapy provided by home health, outpatient clinic, or a post-acute facility. The location of these services is determined by the patient's care team in partnership with patient/family. Level of Care Needed - OT: Assistance with toilet/shower transfers, Assistance with medication set up/administration, Assistance with showering/bathing, Assistance with dressing, Assistance with meal preparation, Assistance with transportation, Assistance with housekeeping, Assistance with shopping Recommended Adaptive Equipment - OT: Other (Comment), Transfer tub bench, Grab bar(s) in shower, Grab bar(s) by toilet (Long-handled sand analyst; Long-handled sponge) Barriers to Discharge Home: Current functional status, Fall risk, Inaccessible home environment Clinical Impression: Patient mobilized with supervision, with no loss of balance noted throughout session; however, occupational performance limited by chronic back pain and decreased activity tolerance. Patient appropriately verbalized home self-care routine and denied questions/concerns regarding self-care participationupon hospital dismissal, especially as patient plans to receive help at home. Patient politely declined participation in self-cares at this date and reports of being close to functional baseline. Patient appears to be at/close to cognitive baseline. Receptive towards safety education and adaptive equipment such as tub transfer bench to optimize occupational participation and performance. Per previousOT note on 01/14/22, patient demonstrated difficulty in the areas of visuospatial skills and sequencing. From an OT perspective, recommending supervision/physical assistance x1 as needed for ADLs and IADLs. OT will sign off as patient reports of being at/close to functional baseline in regards to self-cares. Reconsult should there be a change in status. Rehab potential: Ms. Carias has fair potential to achieve established occupational therapy goals within the time frame outlined below. Tiered OT Evaluation Codes: Personal Factors: Needs assistive device, Living situation, Motivation level, Sedentary lifestyle, Safety awareness, Balance impairment, Age Occupational Profile and History review: Expanded Performance Deficits: 3 - 5 performance deficits Evaluation Complexity: Moderate Functional Goals: OT Goal #1: Patient will demonstrate understanding of home safety strategies and adaptive equipment to optimize self-care performance prior to hospital dismissal. OT Goal #1 Status: Achieved OT Goal #2: Patient will complete functional transfers/mobility with supervision prior to hospital dismissal. OT Goal #2 Status: Achieved Progress: All OT goals achieved Plan Occupational Therapy Attestation Statement: Patient agrees with the plan of care and goals. OT Frequency: OT Frequency: One-time visit OT Inpatient Duration : Until goals are met or hospital discharge Requires Inpatient OT Follow-Up: No Plan: Discontinue OT Treatment interventions may include: Treatment Interventions: Self-care/home management Billing: Time Spent with Patient Evaluations OT Eval - Mod Complexity: 15 min Therapeutic Interventions Home Management Training (min): 11 min Time Tracking Total Timed Units (min): 11 min Total Treatment Time (min): 26 min Alysia Baeza M.S. Virginia Handley M.S., R.N. - 01/22/2022 8:41 AM CDTAssociated Order(s): IP CONSULT TO CARE MANAGEMENT SUBJECTIVE Reason for Referral: A Consult received for Advance Directive materials/education. Care management met with patient. Education provided on the benefits of completing an Advance Directive and resources that may assist them in this process including access to a notary. Offered Advance Health Care Planning: Making Your Wishes Known 2107-05 booklet, which was accepted. Education regarding the Care Management role and how to access a member of the Care Management team for further support or questions was shared. OBJECTIVE Patient on 6 D 744 ASSESSMENT / PLAN ASSESSMENT The patient appear to have an understanding of how to complete an Advance Directive and report awareness of resources to assist them. PLAN 1) Patient to complete an Advance Directive if desired. 2) If the Advance Directive is completed, the patient retains the original and a copy is sent to scanning to be added to the patient's electronic health record. 3) Care Management will continue to be available as needs or questions arise. Virginia Handley M.S., R.N. 01/22/2022 documented in this encounter Nursing Notes Stacie Sullivan R.N. - 01/29/2022 12:01 PM CDT Problem: PAIN - ADULT Goal: [...] fall/fall injury Outcome: Adequate for Discharge Problem: POTENTIAL OR [...] maintained or improved Outcome: Adequate for Discharge Shift Goals: Clinical Goals for the Shift: prepare for going home Identify possible barriers to meeting goals/advancing plan of care: None! End of Shift Summary: VSS. No complaints of pain. AVS reviewed with patient and two visitors. Patient calm and cooperative with cares. Visitors providing transportation. Gi Fitzpatrick R.N. - 01/29/2022 7:21 AM CDT Problem: PAIN - ADULT Goal: PT VERBALIZES/DEMONSTRATES ADEQUATE COMFORT LEVEL OR BASELINE Outcome: Progressing Note: Pt complains of pain, as needed oral dilaudid given with relief Problem: SKIN/TISSUE INTEGRITY Goal: Skin/Tissue integrity maintained or improved Outcome: Progressing Note: Pt is independent with bed mobility Problem: SAFETY ADULT Goal: Maintain a safe environment Outcome: Progressing Note: Pt remained free from falls and injuries on shift. Pt uses call light appropriately, call light within reach Problem: Compromised Skin Integrity Goal: Skin/Tissue integrity maintained or improved Outcome: Progressing Note: Pt is independent with bed mobility Shift Goals: Clinical Goals for the Shift: prepare for going home Identify possible barriers to meeting goals/advancing plan of care: Pain End of Shift Summary: Pt is alert and oriented X 3. VSS, Pt up to commode with A X 1.GB/walker. Usescall light appropriately. BM X 4 on shift. Humera Sifuentes R.N. - 01/28/2022 4:44 AM CDT Problem: PAIN - ADULT Goal: PT VERBALIZES/DEMONSTRATES ADEQUATE COMFORT LEVEL OR BASELINE Outcome: Progressing Note: Pt sleeping comfortably after one time dose this shift. Problem: KNOWLEDGE DEFICIT Goal: Patient/family/caregiver demonstrates understanding of disease process, treatment plan, medications, and discharge instructions Outcome: Progressing Note: Pt requiring education on new pain medication schedule. Problem: SAFETY ADULT Goal: Maintain a safe environment Outcome: Progressing Note: Safety measures in place. Bed alarm on. Shift Goals: Clinical Goals for the Shift: pain control Identify possible barriers to meeting goals/advancing plan of care: pain management End of Shift Summary: Pt alert and oriented x3. Complained of pain, pt resting comfortably after onetime dose of dilaudid. Denies shortness of breath on room air. VSS. Safety measures in place. T Paz Velasquez R.N. - 01/27/2022 3:48 PM CDT Shift Goals: Clinical Goals for the Shift: pain control Identify possible barriers to meeting goals/advancing plan of care: None Problem: SKIN/TISSUE INTEGRITY Goal: Skin/Tissue integrity maintained or improved Outcome: Progressing Note: 2 RN skin check completed. Paracentesis sites open to air. No skin concerns noted. Problem: PAIN - ADULT Goal: PT VERBALIZES/DEMONSTRATES ADEQUATE COMFORT LEVEL OR BASELINE Note: Flexeril given. Dilaudid not given during shift (Every 6hr PRN). Reported pain as 7/10 in the back for duration of shift. End of Shift Summary: VSS. Room air. Assist x1 with gait belt/pivot. Did not work with OT today. Will need to do stair exercises with OT tomorrow prior to discharge d/t living in an apartment with stairs and no elevator. Tolerating oral intake. No difficulty BM/voiding. Alert and Oriented x3. Arun Nath R.N. - 01/26/2022 5:46 AM CDT Shift Goals: Clinical Goals for the Shift: Patient will have adequate pain control with a rating of <7/10. Identify possible barriers to meeting goals/advancing plan of care: End of Shift Summary: stable overnight, complaint of chronic back pain. NPO since midnight for repeat scope, plan today. Problem: PAIN - ADULT Goal: PT VERBALIZES/DEMONSTRATES ADEQUATE COMFORT LEVEL OR BASELINE Outcome: Progressing Problem: SAFETY ADULT Goal: Maintain a safe environment Outcome: Progressing Liberty Carty M.S., R.N. - 01/21/2022 6:40 PM CDT Shift Goals: Clinical Goals for the Shift: Patient will orient to unit. Identify possible barriers to meeting goals/advancing plan of care: N/A End of Shift Summary: Patient's VSS t/o shift; BP javi to 100s SBP following administration of albumin and paracentesis (3 L removed). She reported adequate pain management w/ pharmacological and non-pharmacological measures. Nausea managed w/ Compazine. Patient elected to rest in bed most of the day. Transferring using GB/pivot w/ 1-2. C setup by CM. Patient states all needs met at this time. Problem: PAIN - ADULT Goal: PT VERBALIZES/DEMONSTRATES ADEQUATE COMFORT LEVEL OR BASELINE Outcome: Progressing Problem: KNOWLEDGE DEFICIT Goal: Patient/family/caregiver demonstrates understanding of disease process, treatment plan, medications, and discharge instructions Outcome: Progressing Problem: INFECTION - ADULT Goal: Absence of infection during hospitalization Outcome: Progressing Problem: SKIN/TISSUE INTEGRITY Goal: Skin/Tissue integrity maintained or improved Outcome: Progressing Goal: Oral and Nasal mucous membranes remain intact Outcome: Progressing Problem: SAFETY ADULT Goal: Maintain a safe environment Outcome: Progressing Problem: DISCHARGE PLANNING Goal: Patient discharge needs identified Outcome: Progressing Problem: SAFETY ADULT - RISK FOR FALL AND OR FALL INJURY Goal: Patient remains free from fall/fall injury Outcome: Progressing Electronically signed by: Liberty Carty M.S., R.N. 01/21/22 6:48 PM CDT documented in this encounter ED Notes Haile Keith M.D. - 01/21/2022 1:12 AM CDT Care for this patient was transferred to de at shift change. Please see associated documentation forfurther information. Catia Carias is a 31 y.o. female here for evaluation of Abnormal Lab (Liver patient). BP 103/61 Pulse 103 Temp 36.7 ??C (Oral) Resp 20 SpO2 93% ED Course as of 01/21/22 0827 WedJan 21, 2022 0111 Creatinine(!): 1.24 Disposition coming into the hospital for acute kidney injury concerning for rising potassium as wellas history of alcoholic cirrhosis. 0458 Re-evaluated the patient. Systolic blood pressure 108, temperature 36.6?? C 0532 Patient finally has a bed assigned on the floor. Nursing has given report and they will transport her shortly. Final Diagnoses: as of 01/21/22 0827 Failure Renal Acute (Acute Kidney Injury) (HCC) Cirrhosis Alcoholic (HCC) Alcohol Use Unspecified With Unspecified Alcohol Induced Disorder (HCC) Ascites Hepatic Failure Unspecified Without Coma (HCC) Haile Keith M.D. Resident 01/21/22 0828 Cody Knight M.D. - 01/20/2022 8:36 PM CDT SUBJECTIVE CHIEF COMPLAINT/REASON FOR VISIT Abnormal Lab (Liver patient) HISTORY OF PRESENT ILLNESS Patient comes in with concern for MOSHE as well as hyperkalemia on laboratory there were obtained as an outpatient by her providers in the [place] area. She was advised to come to the emergency department for further evaluation of these symptoms. She does have a flank pain which is severe notes that herabdomen is the always distended and is scheduled for a paracentesis on Wednesday. Be concerned tonight however is her hyperkalemia and the MOSHE. REVIEW OF SYSTEMS Gastrointestinal: Positive for abdominal distention. Genitourinary: Positive for flank pain. All other systems reviewed and are negative. OBJECTIVE Initial Vitals Temperature Pulse Rate Heart Rate Resp Rate Blood Pressure SpO2 01/20/22185801/20/221858 -- 01/20/22185801/20/22185801/20/221858 37.4 ??C (!) 111 24 117/71 97 % Pain Score 01/20/222008 8 PHYSICAL EXAMINATION Constitutional: Nursing note and vitals reviewed. HENT: Nose: Nose normal. Mouth/Throat: Oropharynx is clear and moist. Mucous membranes are moist. Eyes: Conjunctivae and EOM are normal. Scleral icterus present. Neck: Neck supple. Cardiovascular: Normal rate and regular rhythm. Pulmonary/Chest: Effort normal and breath sounds normal. No respiratory distress. Abdominal: Soft. exhibits distension and ascites.There is abdominal tenderness in the right upper quadrant and right flank. There is no rebound and no guarding. Musculoskeletal: General: No deformity. Normal range of motion. Cervical back: Normal range of motion and neck supple. Neurological: Alert and oriented to person, place, and time. Skin: Skin is warm and dry. No rash noted. Psychiatric: She has a normal mood and affect. Behavior is normal. ASSESSMENT/PLAN At this point the big concern is whether she does truly have hyperkalemia in the MOSHE as well as flank pain. We will do laboratory studies on her as well as a CT non con. She will likely require admission to the hospital for further definitive care of her symptomatology. Addendum: Other than an MOSHE the patient has some LFTs that are slightly worsened. Her CT does show compression fractures but she is been complaining of back pain for some time now. We will plan on bringing her into the hospital for further treatment of her MOSHE. Final Diagnoses: as of 01/21/22 1448 Failure Renal Acute (Acute Kidney Injury) (HCC) Cirrhosis Alcoholic (HCC) Alcohol Use Unspecified With Unspecified Alcohol Induced Disorder (HCC) Ascites Hepatic Failure Unspecified Without Coma (HCC) I saw the patient with the medical student. I was present for or re-performed the History of PresentIllness. I personally performed a Physical Exam and Medical Decision Making. I reviewed medical student documentation and agree or amended. Cody Knight M.D. 01/21/22 1449 Liv Allen - 01/20/2022 8:30 PM CDT SUBJECTIVE CHIEF COMPLAINT/REASON FOR VISIT Abnormal Lab (Liver patient) HISTORY OF PRESENT ILLNESS Christelle Carias is a 31 year old female with past medical history pertinent for alcoholic cirrhosis with ascites and most recent MELD score of 26 on furosemide, spironolactone, and lactulose, chronic pancreatitis, GERD on pantoprazole, and back muscles spasms on cyclobenzaprine, who presents with 1 day LUQ pain and abnormal lab results earlier today. Specifically, her K was 5.3, her BUN as 37 and her creatinine was 1.31, with a BUN:creatinine ratio of 28. Her LUQ pain started earlier today, and she describes it as sharp but fluctuating in intensity, with no resolution of pain. The pain does radiate to the back and down to her left flank. She has not taken anything for it specifically, but takes scheduled tylenol, which has not helped. She takes cyclobenzaprine from chronic muscle spasms, and this has also not helped the pain. She had one episode of nausea/vomiting today, with small volume, and did notlook at the emesis but did not think it was bilious or bloody. Denies any recent illnesses, sick contacts, travel, diarrhea, or other emesis. She has been adherent to her medications, notes that a nurse comes in once a week to refill her pillcase. However, recently her furosemide dose was decreased and she has noticed increased ankle swelling in that setting. Her PCP was not sure why this was decreased and recommended increasing it again to 100 mg, 50mg morning and 50mg at night. Today she only took her morning dose and has not yet had time to take her evening dose. Her oral intake is good - she is careful about fluid intake in the setting of fluid retention. She drinks 3 blue kramer cups a day. She is always thirsty and this has not changed. She is making less urine than usual, and it is darker in color than usual. Denies blood or cloudy urine, denies pain with urination. REVIEW OF SYSTEMS Constitutional: Negative for chills and fever. HENT: Negative for congestion, rhinorrhea, sinus pressure, sneezing and sore throat. Eyes: Negative for visual disturbance. Respiratory: Negative for cough, chest tightness, orthopnea and shortness of breath. Cardiovascular: Positive for leg swelling. Negative for chest pain and palpitations. Gastrointestinal: Positive for abdominal distention and abdominal pain. Negative for constipation, diarrhea, nausea and vomiting. Endocrine: Negative for polydipsia and polyuria. Genitourinary: Positive for decreased urine volume. Negative for dysuria and hematuria. Musculoskeletal: Positive for back pain. Negative for arthralgias and extremity pain. Skin: Negative for rash and wound. Neurological: Positive for weakness. Negative for dizziness, light-headedness and headaches. Hematological: Negative for adenopathy. Bruises/bleeds easily. Chronic abdominal distention, back pain, lower extremity weakness, and easy bruising. New worsening bilateral edema and abdominal pain. No current nausea/vomiting. OBJECTIVE Initial Vitals Temperature Pulse Rate Heart Rate Resp Rate Blood Pressure SpO2 01/20/22185801/20/221858 -- 01/20/22185801/20/22185801/20/221858 37.4 ??C (!) 111 24 117/71 97 % Pain Score 01/20/222008 8 PHYSICAL EXAMINATION Constitutional: No distress. HENT: Head: Normocephalic and atraumatic. Nose: No nasal discharge. Mouth/Throat: Oropharynx is clear and moist. Mucous membranes are moist. Eyes: Conjunctivae and EOM are normal. Right eye exhibits no discharge. Left eye exhibits no discharge. Neck: JVD present. No neck adenopathy. Cardiovascular: Regular rhythm, S1 normal and S2 normal. Tachycardia present. Pulses are strong and palpable. Murmur heard. Pulmonary/Chest: Effort normal and breath sounds normal. No stridor. No tachypnea. No respiratory distress. She has no wheezes. She has no rhonchi. She has no rales. Abdominal: Soft. exhibits distension.There is hepatosplenomegaly. There is abdominal tenderness. There is no guarding. Musculoskeletal: General: Edema present. No tenderness or deformity. Cervical back: Normal range of motion. Neurological: Alert. Skin: Skin is warm and dry. She is not diaphoretic. Holosystolic murmur 2/6. JVD. Very tender to light palpation in LUQ down to L flank. Did not feel able to sit up so did not tap CVA, but tenderness of CVA to palpation. No guarding. Chronically distended abdomen with fluid wave. Bilateral 2+ pitting edema. LE weakness bilaterally, chronic per patient. ASSESSMENT/PLAN IMPRESSION AND PLAN Christelle Carias is a 31 year old female with past medical history pertinent for alcoholic cirrhosis with ascites and most recent MELD score of 26 on furosemide, spironolactone, and lactulose, chronic pancreatitis, GERD on pantoprazole, and back muscles spasms on cyclobenzaprine, who presents with 1 day LUQ pain and abnormal lab results earlier today. Given BUN:creatinine ratio >20 and known change to furosemide with associated leg swelling and new flank pain, most concerned for dehydration from third spacing of fluids with subsequent possible kidney stone. CTAP did not show kidney stone, however givenprerenal MOSHE and new compression fractures, we will admit her for management of fluid status and pain . DIFFERENTIAL DIAGNOSIS LUQ pain concerning for kidney stone (CTAP negative for stones) versus acute pancreatitis (lipase not drawn at time of admission, but CTAP showed chronic pancreatitis). I personally reviewed the lab result(s) and my interpretation is abnormal, with the following comments: BMP with normal K, persistent elevation in BUN and creatinine, VBG largely normal, dipstick notable for trace ketones, lipase not drawn at time of admission. I personally reviewed the radiology image(s), with the following comments: CTAP without kidney stone, new thoracolumbar compression fractures. ED Course as of 01/20/222237 Tue Jan 20, 20222048 hCG (Human Chorionic Gonadotropin), Quantitative, : HCG, Quantitative, , P 0.5 2048 Lactate, POCT: Lactate, POCT Collected Lactate of 1.5 2048 Venous Blood Gas and Electrolytes CG8+, POCT: VBG & Lytes CG8+, POCT, B Collected pH 7.45 pCO2 30 pO2 33 Base excess -3 HCO3 20.9 Na 138 K 5.0 iCa 4.9 Glu 113 Hct 18 2048 Basic Metabolic Panel(!): Potassium, P 5.2 Sodium, P 136 Chloride, P 105 Bicarbonate, P 20(!) Anion Gap, P 11 BUN (Blood Urea Nitrogen), P 39(!) Creatinine 1.24(!) Estimated GFR (eGFR) 60 Calcium, Total, P 9.1 Glucose, P 122 2056 Osmolality, Urine: Osmolality, U 401 2056 Microscopic Automated: Microscopy Normal WBC 1-3 Casts, Hyaline 4-10 2056 Urinalysis with Microscopic: Urine, Straight Catheter: Source Urine, Urine, Straight Catheter Color, U Yellow Clarity Clear Protein, U 12 Protein/Osmolality 0.30 Predicted 24 Hr Protein 224 Predicted Range 55-906 2056 Dipstick, Urine(!): Hemoglobin, QL Negative Leukocyte Esterase Negative Nitrite, U Negative Ketones 5(!) Glucose, U Negative 2056 Gram Stain, Urine: Source Urine, Urine, Straight Catheter Gram Stain, U Negative 2104 Dipstick, POCT, Urine(!): Glucose, POCT, U Negative Ketone, POCT, U Trace(!) Specific [place], POCT, U 1.015 Blood, POCT, U Negative pH, POCT, Urine 5.5 Protein, POCT, U Negative Nitrites, POCT, U Negative Leukocytes, POCT, U Negative 2222 CT Abdomen Pelvis without IV Contrast 1. No urinary calculi or hydronephrosis. 2. Cirrhosis with sequela of portal hypertension. 3. Multiple age indeterminate thoracolumbar compression deformities are new since 11/25/2021. Final Diagnoses: as of 01/20/222237 Failure Renal Acute (Acute Kidney Injury) (HCC) Cirrhosis Alcoholic (HCC) Alcohol Use Unspecified With Unspecified Alcohol Induced Disorder (HCC) Ascites Hepatic Failure Unspecified Without Coma (HCC) Liv Allen Sera 01/20/22 2244 Sadia Loredo R.N. - 01/20/2022 8:06 PM CDT Pt presents to [place] [id number] with back pain, rib cage pn, and an abnormal lab from earlier today. Pt states she has an MOSHE and is in liver failure. Denies any symptoms. Denies any SOB, or fever/chills. Sadia Loredo R.N. 01/20/222007 documented in this encounter Miscellaneous Notes Hospital Course - Yue Silver M.D. - 01/21/2022 7:52 AM CDT Ms. Carias is a 31-year-old female with a past medical history of alcoholic cirrhosis complicated by refractory ascites, thrombocytopenia, coagulopathy, chronic anemia, and hepatic encephalopathy, who was admitted with upper quadrant abdominal pain, elevated creatinine, and an increased potassium levelmeasured in the outpatient setting. Paracentesis performed after ceftriaxone administration showed no evidence of SBP on 01/21, so she was reinitiated on prophylactic ciprofloxacin. Her Cr on admission was 1.31, so spironolactone and lasix were held. Cr improved after paracentesis, suggesting some component of compression contributing toAKI. Urine studies confirmed prerenal MOSHE as well, so fluid resuscitation was completed with albumin5%. On 01/26 she required IV Lasix 40mg x1 for evidence of hypervolemia and mild hyponatremia. Paracentesis on 01/27/2022 removed 4.1 L with albumin replacement. Her home diuretics were reintroduced at half doses on 01/28. Cr 0.55 EGD was completed on 01/24. Large varices without concerning features were identified. There was no active bleed. Unfortunately, there was liquid and food in her stomach despite having been NPO for 13 hours. She was sustained on a clear liquid diet over the weekend for repeat EGD on 01/26, given erythromycin for gastric motility 8h pre-procedure and 2 units FFP for INR 2.5 prior to EGD. EGD showed large non-bleeding varices that required banding x6. Throughout stay, lactulose was titrated for goal 2-4BM/day. She did not have hepatic encephalopathy. She was also started thiamine, folate, vitamin A, mag sulfate, zinc, and vitamin D. While hospitalized, her hemoglobin dropped to 6.0 several times, requiring total 3 units pRBCs. There was no evidence of bleeding. Her baseline chronic anemia is 7-7.5. Hgb drop may have had some component of dilution, since she received multiple boluses of albumin (1-1.5L each) and was somewhat hypervolemic by 01/26, with decreases in other cell lines as well. Iron studies were performed that showed significant elevations of ferritin and percent saturation with low TIBC; iron overload. There was some evidence of hemolysis, based on low haptoglobin, high indirect bili. However blood smear was without evidence of hemolysis, and LDH was normal, CIRILO normal. DIC panel showed evidence of impaired synthetic function but very elevated D-dimer (>3000). L flank induration and swelling was observed 01/28,suspicious for bleeding from paracentesis 01/27 versus extravasation of ascites. CT abdomen wo contrast 01/28 showed ascites, small pleural effusions, and fluid in L flank favored ascites. LE DVT US did not show DVT. She was held an additional day to monitor flank mass, associated pain, and Hgb. The cause of Hgb drop and elevated D Dimer is not certain, but Hgb was stable at 8.0 on 01/29. Her reticulocyte count was elevated but not adequately given the degree of her anemia.Her baseline anemia still considered to be of mixed etiology (cirrhosis, chronic disease, splenic sequestration and/or lysis), butrequires further evaluation as outpatient. Her chronic pain was managed with Flexeril 5mg, 1-2 doses daily PRN, lidocaine patch, voltaren gel, heat therapy. She required PO dilaudid 1mg, between 1-4 times daily in setting of ascites contributing to worsened back pain. She was extensively counseled that this would not be continued outpatient and would not be a reasonable long-term option for pain management, which she agrees wholeheartedly with. She is extremely motivated to take whatever steps necessary to be eligible for transplant, and is hopeful she can make the list as soon as possible. We discussed the mental health steps required, many of which she has been doing for months already, and she confirmed she will do everything required. She was discharged on Lasix 20mg and spironolactone 50mg daily (half of home doses), to be increased to full dose starting next week. Lactulose 10 g QID. She has paracentesis scheduled 02/05, will get repeat BMP at that time. Followup with transplant hepatology, PCP for MOSHE and anemia. documented in this encounter Plan of Treatment Upcoming Encounters Date Type Specialty Care Team Description Office Visit [facility], 2 Medicine Vernell Perez [address] [place] [phone] Appointment Radiology [facility] 2 Y M.B.B.SSuma, MJules [address] [place] [phone] [facility] Gastroenterology and [facility] 2 Encounter Hepatology Elizabeth Rodriguez.B.B.SSuma, Lilian [address] [place] [phone] Surgery Gastroenterology and [facility] ESOPHAG OGASTRODUODENOSCOPY 2 Hepatology Y M.B.B.S., MSumaDSuma [address] [place] [phone] Telemedicine Transplant 2 Lab Laboratory Medicine Karin, Olinda Gannon M.D., Ph.D. [address] [place] [phone] Lab Laboratory Medicine Karin Olinda Adeline Gannon M.D., Ph.D. [address] [place] [phone] Office Visit Transplant Karin Olinda Adeline Gannon M.D., Ph.D. [address] [place] [phone] Appointment Radiology Matthew Jerome 2 Y, M.B.B.SSuma, Lilian [address] [place] [phone] Appointment Gastroenterology and [place], 2 Hepatology Yue Burciaga M.D. [address] [place] [phone] Office Visit Gastroenterology and Matthew Jerome 2 Hepatology Jennifer M.B.B.SSuma, Lilian [address] [place] [phone] Appointment Radiology Matthew Jerome 2 Y, M.B.B.SSuma, Lilian [address] [place] [phone] Pending Results Name Type Priority Associated Diagnoses Date/Ti de Prepare Red Blood Blood Bank Routine 01/22/2022 9:39 AM CDT Cells, 1 Units Prepare Fresh Frozen Blood Bank Routine 022 2:30 AM CDT Plasma : 1 Units Transfuse Fresh Frozen Blood Bank Routine 01/23 1:29 PM CDT Plasma :INR >2: Invasive proc scheduled; 180 mL/hr, 1 Units Transfuse Fresh Frozen Blood Bank Routine 01/23 1:29 PM CDT Plasma :INR >2: Invasive proc scheduled; 180 mL/hr Prepare Red Blood Blood Bank Routine 01/22/2022 9:39 AM CDT Cells, 1 Units Prepare Fresh Frozen Blood Bank STAT 022 10:30 PM Plasma : 2 Units CDT Prepare Red Blood Blood Bank STAT 01/26/2022 4:48 AM CDT Cells Scheduled Orders Name Type Priority Associated Diagnoses Order S chedule EGD GI Routine Cirrhosis Alcoho lic (HCC) Expected: 02/27/2022 Hypertension Por meagan (HCC) (Approximate), Esophageal Varices Expires: 04/29/2023 Without Bleeding (HCC) Basic Metabolic Panel Lab Routine Failure Renal Acute Expected: 02/05/2022 (Acute Kidney Injury) (Appro ximate), (HCC) Expires: 2022 Cystatin C with Lab Routine Failure Renal Acute Expec clayton: 02/05/2022, Estimated GFR (Acute Kidney Injury) Expir es: 04/30/2023 (HCC) Scheduled Procedures Name Priority Associated Diagnoses Date/Time ESOPHAGOGASTRODUODENOSCOPY Cirrhosis Alc oholic (HCC) 02/10/2022 8:45 AM CDT Hypertension Portal (HCC) Scheduled Referrals Name Type Priority Associated Diagnoses [facility] Cirrhosis Alcoholic Ordered: Health referral (HCC) 01/27/2022 Ascites Hepatic Failure Unspecified Without Coma (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 (HCC) documented as of this encounter Procedures Procedure Name Priority Date/Time Associated Comments Diagnosis CBC WITH DIFFERENTIAL, Routine 01/29/2022 4:39 Re sults for B AM CDT this procedure are in the results section. BASIC METABOLIC PANEL, Routine 01/29/2022 4:39 Re sults for S/P AM CDT this procedure are in the results section. HEMATOCRIT, B STAT 01/28/2022 1:36 Results for PM CDT this procedure are in the results section. US LOWER EXTREMITY RAD - Routine 01/28/2022 Results for VEINS BILATERAL (most inpatients 10:46 AM CDT this pro cedure and all are in the outpatients) results section. CT ABDOMEN PELVIS RAD - Routine 01/28/2022 Results f or WITHOUT IV CONTRAST (most inpatients 10:18 AM CDT this procedure and all are in the outpatients) results section. ADULT OXYGEN THERAPY Routine 01/28/2022 8:01 AM CDT CYSTATIN C WITH EGFR Routine 01/28/2022 5:28 Resu lts for AM CDT this procedure are in the results section. CBC WITHOUT Routine 01/28/2022 5:28 Results for DIFFERENTIAL, B AM CDT this procedu re are in the results section. BASIC METABOLIC PANEL, Routine 01/28/2022 5:28 Re sults for S/P AM CDT this procedure are in the results section. ADULT OXYGEN THERAPY Routine 01/27/2022 8:01 PM CDT US PARACENTESIS WITH RAD - Routine 01/27/2022 Result s for IMAGING GUIDANCE (most inpatients 10:34 AM CDT this pr ocedure and all are in the outpatients) results section. ADULT OXYGEN THERAPY Routine 01/27/2022 8:02 AM CDT CBC WITH DIFFERENTIAL, Routine 01/27/2022 4:47 Re sults for B AM CDT this procedure are in the results section. BASIC METABOLIC PANEL, Routine 01/27/2022 4:47 Re sults for S/P AM CDT this procedure are in the results section. CYSTATIN C WITH EGFR Routine 01/27/2022 4:43 Resu lts for AM CDT this procedure are in the results section. PREPARE FRESH FROZEN STAT 01/26/2022 PLASMA 10:30 PM CDT ADULT OXYGEN THERAPY Routine 01/26/2022 8:01 PM CDT HC FIBRINOGEN ANTIGEN Timed 01/26/2022 6:58 Res ults for PM CDT this procedure are in the results section. DIC/ICF PROF Timed 01/26/2022 6:58 Results for PM CDT this procedure are in the results section. COAG FACTOR X ACTIVITY Timed 01/26/2022 6:58 Re sults for ASSAY, P PM CDT this procedure are in the results section. REPTILASE TIME, P Timed 01/26/2022 6:58 Results for PM CDT this procedure are in the results section. SOLUBLE FIBRIN MONOMER Timed 01/26/2022 6:58 Re sults for PM CDT this procedure are in the results section. APTT MIX 1:1 Timed 01/26/2022 6:58 Results for PM CDT this procedure are in the results section. PT MIX 1:1 Timed 01/26/2022 6:58 Results for PM CDT this procedure are in the results section. DILUTE RUSSELLS VIPER Timed 01/26/2022 6:58 Res ults for VENOM TEST, P PM CDT this procedure are in the results section. COAG FACTOR XII Timed 01/26/2022 6:58 Results f or ACTIVITY ASSAY, P PM CDT this proce dure are in the results section. COAG FACTOR XI ACTIVITY Timed 01/26/2022 6:58 R esults for ASSAY, P PM CDT this procedure are in the results section. COAG FACTOR IX ACTIVITY Timed 01/26/2022 6:58 R esults for ASSAY, P PM CDT this procedure are in the results section. COAG FACTOR VIII Timed 01/26/2022 6:58 Results for ACTIVITY ASSAY, P PM CDT this proce dure are in the results section. COAG FACTOR VII Timed 01/26/2022 6:58 Results f or ACTIVITY ASSAY, P PM CDT this proce dure are in the results section. COAG FACTOR V ACTIVITY Timed 01/26/2022 6:58 Re sults for ASSAY, P PM CDT this procedure are in the results section. COAG FACTOR II ACTIVITY Timed 01/26/2022 6:58 R esults for ASSAY, P PM CDT this procedure are in the results section. COPPER, S Timed 01/26/2022 6:57 Results for PM CDT this procedure are in the results section. ZINC, S Timed 01/26/2022 6:57 Results for PM CDT this procedure are in the results section. ADULT OXYGEN THERAPY Routine 01/26/2022 4:58 PM CDT ADULT OXYGEN THERAPY Routine 01/26/2022 4:58 PM CDT UPPER GI ENDOSCOPY Routine 01/26/2022 3:18 Result s for PM CDT this procedure are in the results section. EGD Routine 01/26/2022 3:18 (ESOPHAGEALGASTRODUODEN PM CDT OSCOPY) HEMOGLOBIN, B STAT 01/26/2022 Results for 11:16 AM CDT this procedure are in the results section. HEMATOCRIT, B STAT 01/26/2022 Results for 11:16 AM CDT this procedure are in the results section. TRANSFUSE FRESH FROZEN Routine 01/26/2022 PLASMA 10:27 AM CDT TRANSFUSE EMERGENCY Routine 01/26/2022 7:56 RELEASED AM CDT (UNCROSSMATCHED) RED BLOOD CELLS TRANSFUSE FRESH FROZEN Routine 01/26/2022 7:12 PLASMA AM CDT ECG Routine 01/26/2022 5:05 Results for AM CDT this procedure are in the results section. PROTHROMBIN TIME (PT), Routine 01/26/2022 4:53 Re sults for P AM CDT this procedure are in the results section. CBC WITH DIFFERENTIAL, Routine 01/26/2022 4:53 Re sults for B AM CDT this procedure are in the results section. BASIC METABOLIC PANEL, Routine 01/26/2022 4:53 Re sults for S/P AM CDT this procedure are in the results section. PREPARE RED BLOOD CELLS STAT 01/26/2022 4:48 AM CDT TYPE AND SCREEN Routine 01/26/2022 4:48 Results f or AM CDT this procedure are in the results section. HIV-1/-2 AG AND AB Routine 01/25/2022 3:36 Result s for SCREEN, PLASMA PM CDT this procedur e are in the results section. ASPARTATE STAT 01/25/2022 9:56 Results for AMINOTRANSFERASE (AST), AM CDT this procedure S/P are in the results section. TRANSFUSE RED BLOOD Routine 01/25/2022 9:41 CELLS AM CDT SPSMA RESULT Routine 01/25/2022 5:35 Results for AM CDT this procedure are in the results section. PROTHROMBIN TIME (PT), Routine 01/25/2022 5:35 Re sults for P AM CDT this procedure are in the results section. CBC WITH DIFFERENTIAL, Routine 01/25/2022 5:35 Re sults for B AM CDT this procedure are in the results section. LACTATE DEHYDROGENASE Routine 01/25/2022 5:35 Res ults for (LD), S AM CDT this procedure are in the results section. HAPTOGLOBIN, S Routine 01/25/2022 5:35 Results fo r AM CDT this procedure are in the results section. BASIC METABOLIC PANEL, Routine 01/25/2022 5:35 Re sults for S/P AM CDT this procedure are in the results section. RETICULOCYTES, B Routine 01/25/2022 5:30 Results for AM CDT this procedure are in the results section. DIRECT ANTIGLOBULIN Routine 01/25/2022 5:30 Resul ts for TEST (POLYSPECIFIC) AM CDT this pro cedure are in the results section. MAGNESIUM, S Routine 01/25/2022 5:30 Results for AM CDT this procedure are in the results section. HC OSMOLALITY ASSAY Routine 01/24/2022 3:32 Resul ts for URINE PM CDT this procedure are in the results section. DIPSTICK, U Routine 01/24/2022 3:32 Results for PM CDT this procedure are in the results section. PH, RANDOM, U Routine 01/24/2022 3:32 Results for PM CDT this procedure are in the results section. SODIUM, RANDOM, U Routine 01/24/2022 3:32 Results for PM CDT this procedure are in the results section. MICROSCOPIC MANUAL Routine 01/24/2022 3:32 Result s for PM CDT this procedure are in the results section. CREATININE, RANDOM, U Routine 01/24/2022 3:32 Res ults for PM CDT this procedure are in the results section. URINALYSIS WITH Routine 01/24/2022 3:32 Results f or MICROSCOPIC PM CDT this procedure are in the results section. BILIRUBIN, TOT, S/P Routine 01/24/2022 1:35 Resul ts for PM CDT this procedure are in the results section. ADULT OXYGEN THERAPY Routine 01/24/2022 8:01 AM CDT CBC WITHOUT Routine 01/24/2022 5:22 Results for DIFFERENTIAL, B AM CDT this procedu re are in the results section. BASIC METABOLIC PANEL, Routine 01/24/2022 5:22 Re sults for S/P AM CDT this procedure are in the results section. CYSTATIN C WITH EGFR Routine 01/24/2022 5:17 Resu lts for AM CDT this procedure are in the results section. BILIRUBIN DIRECT, S/P Routine 01/24/2022 5:17 Res ults for AM CDT this procedure are in the results section. PREPARE FRESH FROZEN Routine 01/24/2022 2:30 PLASMA AM CDT ADULT OXYGEN THERAPY Routine 01/23/2022 8:01 PM CDT ADULT OXYGEN THERAPY Routine 01/23/2022 4:15 PM CDT ADULT OXYGEN THERAPY Routine 01/23/2022 4:15 PM CDT UPPER GI ENDOSCOPY Routine 01/23/2022 3:35 Result s for PM CDT this procedure are in the results section. EGD Routine 01/23/2022 3:35 (ESOPHAGEALGASTRODUODEN PM CDT OSCOPY) TRANSFUSE FRESH FROZEN Routine 01/23/2022 1:29 PLASMA PM CDT PROTHROMBIN TIME (PT), Routine 01/23/2022 Resul ts for P 10:58 AM CDT this procedure are in the results section. PROTHROMBIN TIME (PT), STAT 01/23/2022 Resul ts for P 10:58 AM CDT this procedure are in the results section. CBC WITH DIFFERENTIAL, Routine 01/23/2022 5:27 Re sults for B AM CDT this procedure are in the results section. AMMONIA Routine 01/23/2022 5:27 Results for AM CDT this procedure are in the results section. BASIC METABOLIC PANEL, Routine 01/23/2022 5:27 Re sults for S/P AM CDT this procedure are in the results section. HEMOGLOBIN, B Timed 01/22/2022 Results for 10:18 PM CDT this procedure are in the results section. TRANSFUSE RED BLOOD Routine 01/22/2022 4:20 CELLS PM CDT CBC WITH DIFFERENTIAL, Routine 01/22/2022 9:40 Re sults for B AM CDT this procedure are in the results section. BASIC METABOLIC PANEL, STAT 01/22/2022 9:40 Re sults for S/P AM CDT this procedure are in the results section. CBC WITH DIFFERENTIAL, STAT 01/22/2022 9:39 Re sults for B AM CDT this procedure are in the results section. PREPARE RED BLOOD CELLS Routine 01/22/2022 9:39 AM CDT PREPARE RED BLOOD CELLS Routine 01/22/2022 9:39 AM CDT TYPE AND SCREEN Routine 01/22/2022 9:39 Results f or AM CDT this procedure are in the results section. PROTHROMBIN TIME (PT), Routine 01/22/2022 5:22 Re sults for P AM CDT this procedure are in the results section. US PARACENTESIS WITH RAD - Routine 01/21/2022 Result s for IMAGING GUIDANCE (most inpatients 10:49 AM CDT this pr ocedure and all are in the outpatients) results section. PROTEIN, TOTAL, BF Timed 01/21/2022 Results f or 10:00 AM CDT this procedure are in the results section. BACTERIAL CULTURE, Timed 01/21/2022 Results f or AEROBIC + SUSC 10:00 AM CDT this procedur e are in the results section. CELL COUNT AND Timed 01/21/2022 Results for DIFFERENTIAL, BF 10:00 AM CDT this proced ure are in the results section. CYSTATIN C WITH EGFR Routine 01/21/2022 7:25 Resu lts for AM CDT this procedure are in the results section. CBC WITH DIFFERENTIAL, Routine 01/21/2022 7:25 Re sults for B AM CDT this procedure are in the results section. COMPREHENSIVE METABOLIC Routine 01/21/2022 7:25 R esults for PANEL, S/P AM CDT this procedure are in the results section. IRON AND TOT Routine 01/21/2022 7:21 Results for IRON-BINDING CAPACITY, AM CDT this procedure S/P are in the results section. FERRITIN, S Routine 01/21/2022 7:21 Results for AM CDT this procedure are in the results section. HEPATIC FUNCTION PANEL, STAT 01/21/2022 2:40 R esults for S AM CDT this procedure are in the results section. LIPASE, S/P STAT 01/21/2022 2:40 Results for AM CDT this procedure are in the results section. CT ABDOMEN PELVIS RAD - Semiurgent 01/20/2022 Result s for WITHOUT IV CONTRAST (Fast; most ED 10:00 PM CDT this p rocedure patients; some are in the inpatients) results section. HC URINALYSIS AUTO WO Routine 01/20/2022 9:05 Res ults for MICRO PM CDT this procedure are in the results section. DIPSTICK, U STAT 01/20/2022 8:57 Results for PM CDT this procedure are in the results section. MICROSCOPIC AUTOMATED STAT 01/20/2022 8:57 Res ults for PM CDT this procedure are in the results section. BACTERIAL CULTURE, STAT 01/20/2022 8:57 Result s for AEROBIC + SUSC, URINE PM CDT this p rocedure are in the results section. GRAM'S ST, U STAT 01/20/2022 8:57 Results for PM CDT this procedure are in the results section. PH, U STAT 01/20/2022 8:57 Results for PM CDT this procedure are in the results section. OSMOLALITY, U STAT 01/20/2022 8:57 Results for PM CDT this procedure are in the results section. URINALYSIS WITH STAT 01/20/2022 8:57 Results f or MICROSCOPIC PM CDT this procedure are in the results section. VBG & LYTES CG8+, POCT, Routine 01/20/2022 8:54 R esults for B PM CDT this procedure are in the results section. LACTATE, POCT, B Routine 01/20/2022 8:51 Results for PM CDT this procedure are in the results section. VBG & LYTES CG8+, POCT, STAT 01/20/2022 8:49 R esults for B PM CDT this procedure are in the results section. LACTATE, POCT, B STAT 01/20/2022 8:49 Results for PM CDT this procedure are in the results section. HUMAN CHORIONIC STAT 01/20/2022 8:49 Results f or GONADOTROPIN (HCG), PM CDT this pro cedure EDDI, are in the results section. BASIC METABOLIC PANEL, STAT 01/20/2022 8:49 Re sults for S/P PM CDT this procedure are in the results section. documented in this encounter Results (ABNORMAL) CBC with Differential, Blood (01/29/2022 4:39 AM CDT) [facility] Method Time Signature Hemoglobin 8.0 (L) 11.6 [...] Address City/State/ZIP Code Phon e Number [facility] - [address] [place], [place] [address] [facility] [place] [address] [facility] [address] [facility] (ABNORMAL) Basic Metabolic Panel (01/29/2022 4:39 AM CDT) Analysis Performed At Patho logist [...] Laterality Blood (Blood, 01/29/2022 4:39 AM 01/30/20 22 5:52 Venous) CDT AM CDT Yue Silver M.D. LAB BLOOD ADD-ON Performing Organization Address City/[facility]/ZIP [facility] Phon e Number [facility] - [address] [place] [address] (ABNORMAL) Hematocrit (01/28/2022 1:36 PM CDT) P athologist Signature Hematocrit 22.0 (L) 35.5 - 44.9 01/28/2022 STMA % 2:10 PM CDT Specimen Anatomical Collection Method Collection Time Receive d Time (Source) Location / / Volume Laterality Blood (Blood, 01/28/2022 1:36 PM 01/29/20 22 2:08 Venous) CDT PM CDT Yue Silver M.D. LAB BLOOD ADD-ON Performing Organization Address City/State/[facility] Phon e Number [facility] - [address] [place] [address] [place] Lower Extremity Veins Bilateral (01/28/2022 [...] man agement can be found on the Moment site. Link [email or web address] Procedure Note Migue Talavera M.D. - 01/28/2022Form [...] man agement can be found on the Moment site. Link [email or web address]/[email or web address] IMPRESSION: 1. Negative for acute DVT within the vis ualized bilateral lower extremity veins. 2. Mild to moderate subcutaneous edema b ilaterally most marked within the region of the calves. Gerda Hull M.D., M.S. IMG US PROCEDURES CT Abdomen Pelvis without IV Contrast (01/28/2022 10:18 AM CDT) Anatomical Region Laterality Modality Abdomen, [...] C with Estimated GFR (01/28/2022 5:28 AM CDT) P athologist Signature eGFR by 47 (L) [...] Laterality Blood (Blood, 01/28/2022 5:28 AM 01/29/20 22 6:19 Venous) CDT AM CDT Darrick Santillan LAB BLOOD ADD-ON Performing Organization Address City/State/ZIP Code Phon e Number [facility] - [address] [place], [place] [address] [facility] [place] [address] [facility] 200 [facility] (ABNORMAL) Basic Metabolic Panel (01/28/2022 5:28 AM CDT) P athologist Signature Potassium, S 4.2 3.6 - 5.2 01/28/2022 DTL mmol/L 7:00 AM CDT Sodium, S 135 135 - 145 01/28/2022 DTL mmol/L 7:00 AM CDT Chloride, S 104 98 - 107 01/28/2022 DTL mmol/L 7:00 AM CDT Bicarbonate, S 21 (L) 22 - 29 01/28/2022 DTL mmol/L 7:00 AM CDT Anion Gap 10 7 - 15 01/28/2022 DTL 7:00 AM CDT BUN (Blood Urea 11 6 - 21 01/28/2022 DTL Nitrogen), S mg/dL 7:00 AM CDT Creatinine 0.71 0.59 - 01/28/2022 DTL 1.04 mg/dL 7:00 AM CDT Estimated GFR >90 >=60 01/28/2022 DTL (eGFR) mL/min/BSA 7:00 AM CDT Comment: Estimated GFR calculated using the 2020 CKD_EPI creatinine equation. Calcium, Total, S 8.9 8.6 - 10.0 mg/dL 01/28/2022 7:00 AM CDT DTL Glucose, S 114 70 - 140 mg/dL 01/28/2022 7:00 AM CDT D TL Specimen Anatomical Collection Method Collection Time Receive d Time (Source) Location / / Volume Laterality Blood (Blood, 01/28/2022 5:28 AM 01/29/20 22 6:19 Venous) CDT AM CDT Gerda Hull M.D., M.S. LAB BLOOD ADD-ON Performing Organization Address City/[facility] Phon e Number [facility] - [address] (ABNORMAL) CBC without Differential (01/28/2022 5:28 AM CDT) [facility] gist Method Time Signature Hemoglobin 7.4 [...] Laterality Blood (Blood, 01/28/2022 5:28 AM 01/29/20 22 5:56 Venous) CDT AM CDT Gerda Hull M.D., M.S. LAB BLOOD ADD-ON Performing Organization Address City/[facility] Phon e Number [facility] - [address] [place] Paracentesis with Imaging Guidance (01/27/2022 10:34 AM CDT) Anatomical Region Laterality Modality Abdomen, [...] participation from Dr. Marla Byers. EP Darrick Santillan IMG US PROCEDURES (ABNORMAL) CBC with Differential, Blood (01/27/2022 4:47 AM CDT) [facility] Method Time Signature Hemoglobin 7.4 (L) 11.6 - 01/27/2022 DTL 15.0 g/dL 5:54 AM CDT Hematocrit 21.1 (L) 35.5 - 01/27/2022 DTL 44.9 % 5:54 AM CDT Erythrocytes 2.16 (L) 3.92 - 01/27/2022 DTL 5.13 5:54 AM CDT x10(12)/L MCV 97.7 78.2 - 01/27/2022 DTL 97.9 fL 5:54 AM CDT RBC Distrib Width 24.5 (H) 12.2 - 01/27/2022 DTL 16.1 % 5:54 AM CDT Platelet Count 42 (L) 157 - 371 01/27/2022 DTL x10(9)/L 5:54 AM CDT Leukocytes 4.8 3.4 - 9.6 01/27/2022 DTL x10(9)/L 5:54 AM CDT Neutrophils 3.28 1.56 - 01/27/2022 DTL 6.45 5:54 AM CDT x10(9)/L Lymphocytes 0.86 (L) 0.95 - 01/27/2022 DTL 3.07 5:54 AM CDT x10(9)/L Monocytes 0.55 0.26 - 01/27/2022 DTL 0.81 5:54 AM CDT x10(9)/L Eosinophils 0.09 0.03 - 01/27/2022 DTL 0.48 5:54 AM CDT x10(9)/L Basophils <0.03 0.01 - 01/27/2022 DTL 0.08 5:54 AM CDT x10(9)/L Specimen Anatomical Collection Method Collection Time Receive d Time (Source) Location / / Volume Laterality Blood (Blood, 01/27/2022 4:47 AM 01/28/20 5:46 Venous) CDT AM CDT Yue Silver M.D. LAB BLOOD ADD-ON Performing Organization Address City/State/ZIP Code Phon e Number [facility] - [address] [place], [place] [address] [facility] [place] [address] [facility] 200 [facility] Basic Metabolic Panel (01/27/2022 4:47 AM CDT) P athologist Signature Potassium, S 4.3 3.6 - 5.2 01/27/2022 DTL mmol/L 6:15 AM CDT Sodium, S 136 135 - 145 01/27/2022 DTL mmol/L 6:15 AM CDT Chloride, S 105 98 - 107 01/27/2022 DTL mmol/L 6:15 AM CDT Bicarbonate, S 22 22 - 29 01/27/2022 DTL mmol/L 6:15 AM CDT Anion Gap 9 7 - 15 01/27/2022 DTL 6:15 AM CDT BUN (Blood Urea 17 6 - 21 01/27/2022 DTL Nitrogen), S mg/dL 6:15 AM CDT Creatinine 0.85 0.59 - 01/27/2022 DTL 1.04 mg/dL 6:15 AM CDT Estimated GFR >90 >=60 01/27/2022 DTL (eGFR) mL/min/BSA 6:15 AM CDT Comment: Estimated GFR calculated using the 2020 CKD_EPI creatinine equation. Calcium, Total, S 9.1 8.6 - 10.0 mg/dL 01/27/2022 6:15 AM CDT DTL Glucose, S 132 70 - 140 mg/dL 01/27/2022 6:15 AM CDT D TL Specimen Anatomical Collection Method Collection Time Receive d Time (Source) Location / / Volume Laterality Blood (Blood, 01/27/2022 4:47 AM 01/28/20 22 5:59 Venous) CDT AM CDT Yue Silver M.D. LAB BLOOD ADD-ON Performing Organization Address City/[facility]/ZIP Code Phon e Number [facility] - [address] [place], [place] [address] [place] [address] [address] (ABNORMAL) Cystatin C with Estimated GFR (01/27/2022 4:43 AM CDT) athologist Signature eGFR by 39 (L) >60 01/27/2022 DT Cystatin C mL/min/BSA 7:57 AM CDT Comment: Estimated GFR calculated using [...] lower with the new assay. Cystatin C 1.75 (H) 0.63 - 1.03 mg/L 01/27/2022 7:57 AM CDT DT Specimen Anatomical Collection Method Collection Time Receive d Time (Source) Location / / Volume Laterality Blood (Blood, 01/27/2022 4:43 AM 01/28/20 7:35 Venous) CDT AM CDT Darrick Santillan LAB BLOOD ADD-ON Performing Organization Address City/[facility] Code Phon e Number [facility] - [address] [place], [place] [address] [facility] [place] [address] [facility] (ABNORMAL) Coagulation Factor XI Activity Assay (01/26/2022 6:58 PM CDT) athologist Signature Coag Factor XI 18 (L) 55 - 150 % 01/27/2022 DT Assay, P 12:47 PM CDT Comment: ----ADDITIONAL INFORMATION---- This test has been modified from the man ufacturer's instructions. Its performance characteri stics were determined by [facility] in a manner co nsistent with CLIA requirements. This test has not bee n cleared or approved by the U.S. Food and Drug Admin istration. Specimen Anatomical Collection Method Collection Time Receive d Time (Source) Location / / Volume Laterality Blood 01/26/2022 6:58 PM 2 CDT 11:30 AM CDT Darrick DanielS. LAB BLOOD ADD-ON Performing Organization Address [facility] Phon e Number [facility] - [address] [place], [place] [address] [facility] [place] [address] [facility] 200 [facility] (ABNORMAL) Coagulation Factor XII Activity Assay (01/26/2022 6:58 PM CDT) athologist Signature Coag Factor XII 32 (L) 55 - 180 % 01/27/2022 DTL Assay, P 12:47 PM CDT Comment: ----ADDITIONAL INFORMATION---- This test has been modified from the man ufacturer's instructions. Its performance characteri stics were determined by [facility] in a manner co nsistent with CLIA requirements. This test has not bee n cleared or approved by the U.S. Food and Drug Admin istration. Specimen Anatomical Collection Method Collection Time Receive d Time (Source) Location / / Volume Laterality Blood 01/26/2022 6:58 PM 2 CDT 11:30 AM CDT Darrick DanielSSuma LAB BLOOD ADD-ON Performing Organization Address City/[facility] Phon e Number [facility] - [address] [place], [place] [address] [facility] [place] [address] [facility] 200 [facility] (ABNORMAL) Coagulation Factor IX Activity Assay (01/26/2022 6:58 PM CDT) athologist Signature Coag Factor IX 29 (L) 65 - 140 % 01/27/2022 DTL Assay, P 12:47 PM CDT Comment: ----ADDITIONAL INFORMATION---- This test has been modified from the [place] ufacturer's instructions. Its performance characteri stics were determined by [facility] in a manner co nsistent with CLIA requirements. This test has not bee n cleared or approved by the U.S. Food and Drug Admin istration. Specimen Anatomical Collection Method Collection Time Receive d Time (Source) Location / / Volume Laterality Blood 01/26/2022 6:58 PM 2 CDT 11:30 AM CDT Darrick DanielSSuma LAB BLOOD ADD-ON Performing Organization Address City/[facility] Phon e Number [facility] - [address] [place], [place] [address] [facility] [place] [address] [facility] 200 [facility] Coagulation Factor VIII Activity Assay (01/26/2022 6:58 PM CDT) athologist Signature Coag Factor 93 55 - 200 % 01/27/2022 DTL VIII Activity 12:19 PM CDT Assay, P Comment: ----ADDITIONAL INFORMATION---- This test has been modified from the [place] Zeroacturer's instructions. Its performance characteri stics were determined by [facility] in a manner co nsistent with CLIA requirements. This test has not bee n cleared or approved by the U.S. Food and Drug Admin istration. Specimen Anatomical Collection Method Collection Time Receive d Time (Source) Location / / Volume Laterality Blood 01/26/2022 6:58 PM 2 CDT 11:30 AM CDT Darrick DanielSSuma LAB BLOOD ADD-ON Performing Organization Address City/[facility] Code Phon e Number [facility] - [address] [place], [place] [address] [facility] [place] [address] [facility] 200 [facility] (ABNORMAL) Coag Factor X Assay, P (01/26/2022 6:58 PM CDT) athologist Signature Coag Factor X 29 (L) 70 - 150 % 01/27/2022 DTL Assay, P 12:19 PM CDT Comment: ----ADDITIONAL INFORMATION---- This test has been modified from the [place] Zeroacturer's instructions. Its performance characteri stics were determined by [facility] in a manner co nsistent with CLIA requirements. This test has not bee n cleared or approved by the U.S. Food and Drug Admin istration. Specimen Anatomical Collection Method Collection Time Receive d Time (Source) Location / / Volume Laterality Blood 01/26/2022 6:58 PM 2 CDT 11:30 AM CDT Darrick Santillan LAB BLOOD ADD-ON Performing Organization Address City/[facility] Phon e Number [facility] - [address] [place], [place] [address] [facility] [place] [address] [facility] [address] [facility] (ABNORMAL) Coagulation Factor VII Activity Assay (01/26/2022 6:58 PM CDT) P athologist Signature Coag Factor VII 13 (L) 65 - 180 % 01/27/2022 DTL Assay, P 12:19 PM CDT Comment: ----ADDITIONAL INFORMATION---- This test has been modified from the man ufacturer's instructions. Its performance characteri stics were determined by [facility] in a manner co nsistent with CLIA requirements. This test has not bee n cleared or approved by the U.S. Food and Drug Admin istration. Specimen Anatomical Collection Method Collection Time Receive d Time (Source) Location / / Volume Laterality Blood 01/26/2022 6:58 PM 2 CDT 11:30 AM CDT Darrick DanielSSuma LAB BLOOD ADD-ON Performing Organization Address City/State/ZIP Code Phon e Number [facility] - [address] [place], [place] [address] [facility] [place] [address] [facility] [address] [facility] (ABNORMAL) Coagulation Factor V Activity Assay (01/26/2022 6:58 PM CDT) P athologist Signature Coag Factor V 18 (L) 70 - 165 % 01/27/2022 DTL Assay, P 12:19 PM CDT Comment: ----ADDITIONAL INFORMATION---- This test has been modified from the IMRSVacturer's instructions. Its performance characteri stics were determined by [facility] in a manner co nsistent with CLIA requirements. This test has not bee n cleared or approved by the U.S. Food and Drug Admin istration. Specimen Anatomical Collection Method Collection Time Receive d Time (Source) Location / / Volume Laterality Blood 01/26/2022 6:58 PM 2 CDT 11:30 AM CDT Darrick Santillan LAB BLOOD ADD-ON Performing Organization Address City/[facility] Phon e Number [facility] - [address] [place], [place] [address] [facility] [place] [place] [address] [facility] 200 [facility] (ABNORMAL) Coagulation Factor II Activity Assay (01/26/2022 6:58 PM CDT) P athologist Signature Coag Factor II 28 (L) 75 - 145 % 01/27/2022 DTL Assay, P 12:19 PM CDT Comment: ----ADDITIONAL INFORMATION---- This test has been modified from the [facility] cecilacturer's instructions. Its performance characteri stics were determined by [facility] in a manner co nsistent with [...] Address City/State/ZIP Code Phon e Number [facility] - [address] [place] [address] [facility] [place] [place] [address] [facility] 200 [facility] Reptilase Time, Plasma (01/26/2022 6:58 PM CDT) P athologist Signature Reptilase Time, 21.0 14.0 - 23.9 01/27/2022 DT P sec 11:03 AM CDT Comment: ----ADDITIONAL INFORMATION---- This test has been modified from the IMRSVsusir's instructions. Its performance characteri stics were determined by [facility] in a manner co nsistent with CLIA requirements. This test has not bee n cleared or approved by the U.S. Food and Drug Admin istration. Specimen Anatomical Collection Method Collection Time Receive d Time (Source) Location / / Volume Laterality Blood 01/26/2022 6:58 PM 2 7:12 CDT AM CDT Darrick DanielSSuma LAB BLOOD ADD-ON Performing Organization Address City/[facility] Phon e Number [facility] - [address] [place], [place] [address] [facility] [place] [place] [address] [facility] 200 [facility] PT Mix 1:1 (01/26/2022 6:58 PM CDT) athologist Signature PT Mix 1:1 11.8 9.4 - 12.5 01/27/2022 DTL sec 11:04 AM CDT Comment: ----ADDITIONAL INFORMATION---- This test has been modified from the [place] flakitar's instructions. Its performance characteri stics were determined by [facility] in a manner co nsistent with CLIA requirements. This test has not bee n cleared or approved by the U.S. Food and Drug Admin istration. Specimen Anatomical Collection Method Collection Time Receive d Time (Source) Location / / Volume Laterality Blood 01/26/2022 6:58 PM 2 7:12 CDT AM CDT Darrick DanielSSuma LAB BLOOD ADD-ON Performing Organization Address City/[facility] Phon e Number [facility] - [address] [place], [place] [address] [facility] [place] [address] [facility] 200 [facility] APTT Mix 1:1 (01/26/2022 6:58 PM CDT) athologist Signature APTT Mix 1:1 28 25 - 37 sec 01/27/2022 DTL 11:04 AM CDT Comment: ----ADDITIONAL INFORMATION---- This test has been modified from the [place]'s instructions. Its performance characteri stics were determined by [facility] in a manner co nsistent with CLIA requirements. This test has not bee n cleared or approved by the U.S. Food and Drug Admin istration. Specimen Anatomical Collection Method Collection Time Receive d Time (Source) Location / / Volume Laterality Blood 01/26/2022 6:58 PM 2 7:12 CDT AM CDT Darrick DanielSSuma LAB BLOOD ADD-ON Performing Organization Address City/State/ZIP Code Phon e Number [facility] - [address] [place], [place] [address] [facility] [place] [id number] [facility] [address] [facility] Dilute Russells Viper Venom Time (DRVVT) (01/26/2022 6:58 PM CDT) athologist Signature DRVVT Screen 0.85 <1.20 ratio 01/27/2022 DTL Ratio 11:04 AM CDT Specimen Anatomical Collection Method Collection Time Receive d Time (Source) Location / / Volume Laterality Blood 01/26/2022 6:58 PM 2 7:12 CDT AM CDT Darrick CheryBSumaS. LAB BLOOD ADD-ON Performing Organization Address City/State/ZIP Code Phon e Number [facility] - [address] [place], [place] [address] [facility] [place] [place] [address] [place] [address] (ABNORMAL) PT-Fibrinogen (01/26/2022 6:58 PM CDT) athologist Signature PT-Fibrinogen, 241 (L) 261 - 595 01/27/2022 DTL P mg/dL 9:36 AM CDT Specimen Anatomical Collection Method Collection Time Receive d Time (Source) Location / / Volume Laterality Blood 01/26/2022 6:58 PM 2 7:12 CDT AM CDT Darrick CheryBSumaS. LAB BLOOD NON ADD-ON Performing Organization Address City/State/ZIP Code Phon e Number [facility] - [address] [place], [place] [address] [facility] [place] [place] [address] (ABNORMAL) Soluble Fibrin Monomer (01/26/2022 6:58 PM CDT) P athologist Signature Soluble Fibrin 165 (H) <=8 mcg/mL 01/27/2022 DTL Monomer 10:57 AM CDT Comment: ----ADDITIONAL INFORMATION---- This test was developed and its performa nce characteristics determined by [facility] in a manner co nsistent with CLIA requirements. This test has not bee n cleared or approved by the U.S. Food and Drug Admin istration. Specimen Anatomical Collection Method Collection Time Receive d Time (Source) Location / / Volume Laterality Blood 01/26/2022 6:58 PM 7:12 CDT AM CDT Darrick Santillan LAB BLOOD NON ADD-ON Performing Organization Address City/State/ZIP Code Phon e Number [address] [address] [facility] [place] [place] [address] (ABNORMAL) DIC/ICF Profile (01/26/2022 6:58 PM CDT) [...] Its performance characteri stics were determined by [facility] in a manner co nsistent with [...] 01/28/20 7:12 Venous) CDT AM CDT Narrative [facility] - [facility] - 01/27/2022 5:26 PM CDT Specimen Information: Specimen ID: [id number] Specimen Type: Blood Specimen Collection Start Date: 01/27/20 ??6:58 PM Specimen Received Date: 01/27/2022 ??7:1 2 AM Specimen ID: [id number] Specimen Type: Blood Specimen Collection Start Date: 01/27/20 ??6:58 PM Specimen Received Date: 01/27/2022 ??7:1 2 AM Specimen ID: [id number] Specimen Type: Blood Specimen Collection Start Date: 01/27/20 ??6:58 PM Specimen Received Date: 01/27/2022 ??7:1 2 AM Specimen ID: [id number] Specimen Type: Blood Specimen Collection Start Date: 01/27/20 ??6:58 PM Specimen Received Date: 01/27/2022 ??7:1 2 AM Specimen ID: [id number] Specimen Type: Blood Specimen Collection Start Date: 01/27/20 ??6:58 PM Specimen Received Date: 01/27/2022 ??7:1 2 AM Darrick Santillan LAB BLOOD NON ADD-ON Performing Organization Address City/State/ZIP Code Phon e Number [facility] - [address] [place], [place] [address] [facility] [place] [address] [facility] [address] (ABNORMAL) Copper (01/26/2022 6:57 PM CDT) P athologist Signature Copper, S 58 (L) 77 - 206 01/27/2022 SDSC mcg/dL 11:02 AM CDT Comment: ----ADDITIONAL INFORMATION---- This test was developed and its performa nce characteristics determined by [facility] in a manner consistent with CLIA requirements. This test has not been cleared or approved by the U.S. Meggan d and Drug Administration. Specimen Anatomical Collection Method Collection Time Receive d Time (Source) Location / / Volume Laterality Blood (Blood, 01/26/2022 6:57 PM 01/28/20 22 7:45 Venous) CDT AM CDT Darrick Santillan LAB BLOOD NON ADD-ON Performing Organization Address City/[facility] Phon e Number [address] [place] [address] [address] TA Mueller (01/26/2022 6:57 PM CDT) athologist Signature Zinc, S 66 60 - 106 01/27/2022 SDSC mcg/dL 11:02 AM CDT Comment: ----ADDITIONAL INFORMATION---- This test was developed and its performa nce characteristics determined by [facility] in a manner consistent with CLIA requirements. This test has not been cleared or approved by the U.[place]. Meggan d and Drug Administration. Specimen Anatomical Collection Method Collection Time Receive d Time (Source) Location / / Volume Laterality Blood (Blood, 01/26/2022 6:57 PM 01/28/20 22 7:45 Venous) CDT AM CDT Darrick Santillan LAB BLOOD NON ADD-ON Performing Organization Address City/[facility] Phon e Number [address] [place] [address] [address] [place] Upper GI Endoscopy (01/26/2022 3:18 PM CDT) Specimen (Source) Anatomical Collection Method Collection Time Re ceived Time Location / / Volume Laterality 01/26/2022 3:18 PM CDT Impressions [facility] - 01/26/2022 10:50 PM CDT Post-op Diagnoses: ? - Large (> 5 mm) esophageal varic es with no bleeding and no stigmata of ? recent bleeding. Banded x 6. ? - Portal hypertensive gastropathy (non-bleeding). ? - No specimens collected. Narrative [facility] - 01/26/2022 10:50 PM CDT Otto 6 GI GI Patient Name: Catia Carias Date of : 1990 Age: 31 Gender: Female Procedure Date: 01/26/2022 Procedure: ? Upper GI endoscopy Providers: ? Andreas Price MD, Eulogio Donald MD ? (Elicia lopez) Referring Provider: ?Huang Diamond Pre-op Diagnoses: ?Esophageal [...] No immedia te complications. 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 pro cedure, including non-judd portions. Andreas Price MD 01/26/2022 10:50:15 PM This report has been signed electronical ly. Number of Addenda: 0 Huang Diamond M.D. GI PROCEDURE ORDERABLES Performing Organization Address City/State/ZIP Code Phon e Number [employer] NA Transfuse Fresh Frozen Plasma :INR >2: Invasive proc scheduled; 180 mL/hr (01/26/2022 11:20 AM CDT) Darrick CheryB.S. BLOOD TRANSFUSION ORDERABLES Transfuse Fresh Frozen Plasma :INR >2: Invasive proc scheduled; 180 mL/hr, 2 Units (01/26/2022 11:20 AM CDT) Darrick CheryB.S. BLOOD TRANSFUSION ORDERABLES (ABNORMAL) Hematocrit (01/26/2022 11:16 AM CDT) athologist Signature Hematocrit 21.3 (L) 35.5 - 44.9 01/26/2022 STMA % 11:25 AM CDT Specimen Anatomical Collection Method Collection Time Receive d Time (Source) Location / / Volume Laterality Blood (Blood, 01/26/2022 11:16 01/26/2022 Venous) AM CDT 11:22 AM CDT Gerda Hull M.D., M.S. LAB BLOOD ADD-ON Performing Organization Address [facility] Phon e Number [facility] - [address] (ABNORMAL) Hemoglobin (01/26/2022 11:16 AM CDT) athologist Signature Hemoglobin 7.4 (L) 11.6 - 15.0 01/26/2022 STMA g/dL 11:25 AM CDT Specimen Anatomical Collection Method Collection Time Receive d Time (Source) Location / / Volume Laterality Blood (Blood, 01/26/2022 11:16 01/26/2022 Venous) AM CDT 11:22 AM CDT Gerda Hull M.D., M.S. LAB BLOOD ADD-ON Performing Organization Address City/[facility] Phon e Number [facility] [address] Transfuse Emergency Released Red Blood Cells (Uncrossmatched) (01/26/2022 9:59 AM CDT) Darrick CheryB.SSuma BLOOD TRANSFUSION ORDERABLES Transfuse Emergency Released Red Blood Cells (Uncrossmatched) : 1 Units (01/26/2022 9:59 AM CDT) Darrick CheryB.SSuma BLOOD TRANSFUSION ORDERABLES Transfuse Fresh Frozen Plasma :INR >2: Invasive proc scheduled; 180 mL/hr (01/26/2022 7:58 AM CDT) Darrick CheryB.SSuma BLOOD TRANSFUSION ORDERABLES ECG 12 Lead (01/26/2022 5:05 AM CDT) P athologist Signature Ventricular Rate 96 BPM MUSE ECG/Min MO Interval 166 ms MUSE QRSD Interval 88 ms MUSE QT Interval 364 ms MUSE QTC Interval 460 ms MUSE P [place] 56 degrees MUSE R [place] 50 degrees MUSE T Wave [place] 32 degrees MUSE Specimen Anatomical Collection Method [...] (ABNORMAL) Prothrombin Time (PT) (01/26/2022 4:53 AM CDT) [facility] gist Method Time Signature Prothrombin 28.3 (H) [...] Laterality Blood (Blood, 01/26/2022 4:53 AM 01/27/20 6:05 Venous) CDT AM CDT Yue Silver M.D. LAB BLOOD ADD-ON Performing Organization Address City/State/ZIP Code Phon e Number [facility] - 200 [place] [address] [facility] [place] [address] [address] (ABNORMAL) Basic Metabolic Panel (01/26/2022 4:53 AM CDT) P athologist Signature Potassium, S 4.2 3.6 - 5.2 01/26/2022 DTL mmol/L 6:33 AM CDT Sodium, S 132 (L) 135 - 145 01/26/2022 DTL mmol/L 6:33 AM CDT Chloride, S 102 98 - 107 01/26/2022 DTL mmol/L 6:33 AM CDT Bicarbonate, S 21 (L) 22 - 29 01/26/2022 DTL mmol/L 6:33 AM CDT Anion Gap 9 7 - 15 01/26/2022 DTL 6:33 AM CDT BUN (Blood Urea 16 6 - 21 01/26/2022 DTL Nitrogen), S mg/dL 6:33 AM CDT Creatinine 0.60 0.59 - 01/26/2022 DTL 1.04 mg/dL 7:05 AM CDT Estimated GFR >90 >=60 01/26/2022 DTL (eGFR) mL/min/BSA 7:05 AM CDT Comment: Estimated GFR calculated using the 2020 CKD_EPI creatinine equation. Calcium, Total, S 9.2 8.6 - 10.0 mg/dL 01/26/2022 6:33 AM CDT DTL Glucose, S 93 70 - 140 mg/dL 01/26/2022 6:33 AM CDT D TL Specimen Anatomical Collection Method Collection Time Receive d Time (Source) Location / / Volume Laterality Blood (Blood, 01/26/2022 4:53 AM 01/27/20 6:15 Venous) CDT AM CDT Darrick Santillan LAB BLOOD ADD-ON Performing Organization Address City/State/ZIP Code Phon e Number [facility] - [address] [place] [address] [facility] [place] [address] [facility] 200 [facility] (ABNORMAL) CBC with Differential, Blood (01/26/2022 4:53 AM CDT) Patholo gist Method Time Signature Hemoglobin 6.3 (L) 11.6 - 01/26/2022 DTL 15.0 g/dL 7:19 AM CDT Hematocrit 19.0 (L) 35.5 - 01/26/2022 DTL 44.9 % 7:19 AM CDT Erythrocytes 1.86 (L) 3.92 - 01/26/2022 DTL 5.13 7:19 AM CDT x10(12)/L MCV 102.2 (H) 78.2 - 01/26/2022 DTL 97.9 fL 7:19 AM CDT RBC Distrib Width 25.1 (H) 12.2 - 01/26/2022 DTL 16.1 % 7:19 AM CDT Platelet Count 41 (L) 157 - 371 01/26/2022 DTL x10(9)/L 7:19 AM CDT Leukocytes 3.3 (L) 3.4 - 9.6 01/26/2022 DTL x10(9)/L 7:19 AM CDT Neutrophils 2.05 1.56 - 01/26/2022 DTL 6.45 7:19 AM CDT x10(9)/L Lymphocytes 0.75 (L) 0.95 - 01/26/2022 DTL 3.07 7:19 AM CDT x10(9)/L Monocytes 0.44 0.26 - 01/26/2022 DTL 0.81 7:19 AM CDT x10(9)/L Eosinophils 0.08 0.03 - 01/26/2022 DTL 0.48 7:19 AM CDT x10(9)/L Basophils <0.03 0.01 - 01/26/2022 DTL 0.08 7:19 AM CDT x10(9)/L Specimen Anatomical Collection Method Collection Time Receive d Time (Source) Location / / Volume Laterality Blood (Blood, 01/26/2022 4:53 AM 01/27/20 22 6:05 Venous) CDT AM CDT Darrick Santillan LAB BLOOD ADD-ON Performing Organization Address City/State/ZIP Code Phon e Number [facility] - [facility] [address] [place], [place] [address] [facility] [place] [address] [facility] [address] Type and Screen (with reflex Antibody ID) (01/26/2022 4:48 AM CDT) Patholo gist Method Time Signature ABORh B Pos Not 01/26/2022 STRM applicable 9:18 AM CDT Antibody Negative Negative 01/26/2022 STRM Screen 9:34 AM CDT Type & Screen 01/29/2022 01/26/2022 STRM Expiration 23:59 9:18 AM CDT Testing [place] DEFAULT 01/26/2022 STRM Location 8:55 AM CDT Specimen Anatomical Collection Method Collection Time Receive d Time (Source) Location / / Volume Laterality Blood (Blood, 01/26/2022 4:48 AM 01/27/20 8:55 Venous) CDT AM CDT Darrick Santillan LAB BLOOD BANK TEST ORDERABL ES Performing Organization Address [facility] Phon e Number [place] [address] HIV-1/-2 Ag and Ab Screen, Plasma (01/25/2022 3:36 PM CDT) P athologist Signature HIV-1/-2 Ag Negative Negative 01/26/2022 [facility] and Ab Screen, 11:53 AM CDT P [...] Laterality Blood (Blood, 01/25/2022 3:36 PM 01/27/20 Venous) CDT 10:34 AM CDT Darrick Santillan LAB MICROBIOLOGY - BLOOD ORD ERABLES Performing Organization Address City/[facility]/ZIP [facility] Phon e Number [facility] [address] [place], [place] [address] [facility] [place], [place] [id number] [place] [address] [place] Transfuse Red Blood Cells : (01/25/2022 1:08 PM CDT) Darrick Santillan BLOOD TRANSFUSION ORDERABLES Transfuse Red Blood Cells : , 1 Units (01/25/2022 1:08 PM CDT) Darrick Santillan BLOOD TRANSFUSION ORDERABLES (ABNORMAL) AST (Aspartate Aminotransferase) (01/25/2022 9:56 AM CDT) [facility] Method Time Signature Aspartate 62 (H) 8 - 43 01/25/2022 DTL Aminotransferase U/L 10:32 AM CDT (AST), P Specimen Anatomical Collection Method Collection Time Receive d Time (Source) Location / / Volume Laterality Blood 01/25/2022 9:56 AM 9:56 CDT AM CDT Darrick Santillan LAB BLOOD ADD-ON Performing Organization Address City/State/[facility] Code Phon e Number [facility] - [address] [place] [address] [facility] [place] [place] [address] [facility] 200 [facility] (ABNORMAL) CBC with Differential, Blood (01/25/2022 5:35 AM CDT) [facility] Method Time Signature Hemoglobin 6.2 (L) 11.6 - 01/25/2022 DHPM 15.0 g/dL 7:03 AM CDT Hematocrit 18.1 (L) 35.5 - 01/25/2022 DHPM 44.9 % 7:03 AM CDT Erythrocytes 1.72 (L) 3.92 - 01/25/2022 DHPM 5.13 7:03 AM CDT x10(12)/L MCV 105.2 (H) 78.2 - 01/25/2022 DHPM 97.9 fL 7:03 AM CDT RBC Distrib 21.9 (H) 12.2 - 01/25/2022 DHPM Width 16.1 % 7:03 AM CDT Platelet Count 46 (L) 157 - 371 01/25/2022 DHPM x10(9)/L 7:03 AM CDT Leukocytes 4.0 3.4 - 9.6 01/25/2022 DHPM x10(9)/L 7:03 AM CDT Neutrophils SeeComment 1.56 - 01/25/2022 [facility] 6.45 7:03 AM CDT x10(9)/L Comment: Auto-diff results not valid. Se e manual differential. Specimen Anatomical Collection Method Collection Time Receive d Time (Source) Location / / Volume Laterality Blood (Blood, 01/25/2022 5:35 AM 01/26/20 5:57 Venous) CDT AM CDT Darrick Santillan LAB BLOOD ADD-ON Performing Organization Address City/State/ZIP Code Phon e Number [facility] - 200 [place], [place] [address] [place] [address] [facility] 200 [facility] (ABNORMAL) Basic Metabolic Panel (01/25/2022 5:35 AM CDT) athologist Signature Potassium, S 4.2 3.6 - 5.2 01/25/2022 DTL mmol/L 6:24 AM CDT Sodium, S 135 135 - 145 01/25/2022 DTL mmol/L 6:24 AM CDT Chloride, S 103 98 - 107 01/25/2022 DTL mmol/L 6:24 AM CDT Bicarbonate, S 20 (L) 22 - 29 01/25/2022 DTL mmol/L 6:24 AM CDT Anion Gap 12 7 - 15 01/25/2022 DTL 6:24 AM CDT BUN (Blood Urea 19 6 - 21 01/25/2022 DTL Nitrogen), S mg/dL 6:24 AM CDT Creatinine 0.74 0.59 - 01/25/2022 DTL 1.04 mg/dL 6:24 AM CDT Estimated GFR >90 >=60 01/25/2022 DTL (eGFR) mL/min/BSA 6:24 AM CDT Comment: Estimated GFR calculated using the 2020 CKD_EPI creatinine equation. Calcium, Total, S 9.2 8.6 - 10.0 mg/dL 01/25/2022 6:24 AM CDT DTL Glucose, S 104 70 - 140 mg/dL 01/25/2022 6:24 AM CDT D TL Specimen Anatomical Collection Method Collection Time Receive d Time (Source) Location / / Volume Laterality Blood (Blood, 01/25/2022 5:35 AM 01/26/20 22 6:08 Venous) CDT AM CDT Darrick Santillan LAB BLOOD ADD-ON Performing Organization Address City/State/ZIP Code Phon e Number [facility] - [address] [place] [address] (ABNORMAL) Haptoglobin (01/25/2022 5:35 AM CDT) [facility] Haptoglobin, S <14 (L) 30 - 200 01/26/2022 [facility] mg/dL 10:51 AM CDT Specimen Anatomical Collection Method Collection Time Receive d Time (Source) Location / / Volume Laterality Blood 01/25/2022 5:35 AM 2 6:58 CDT AM CDT Darrick Santillan LAB BLOOD ADD-ON Performing Organization Address City/[facility]/ZIP Code Phon e Number [facility] [address] [place] [address] 05 [place], [place] [id number] [place] [address] [place] LD (Lactate Dehydrogenase) (01/25/2022 5:35 AM CDT) [facility] LD 197 122 - 222 01/25/2022 DTL U/L 6:35 AM CDT Specimen Anatomical Collection Method Collection Time Receive d Time (Source) Location / / Volume Laterality Blood (Blood, 01/25/2022 5:35 AM 01/26/20 22 6:18 Venous) CDT AM CDT Darrick Santillan LAB BLOOD NON ADD-ON Performing Organization Address City/State/ZIP Code Phon e Number [facility] - [address] [place] [address] [place] [address] [address] [facility] (ABNORMAL) SPSMA Result (01/25/2022 5:35 AM CDT) Analysis Performed At [facility] Neutrophilic Segs 74 50 - 75 % 01/25/2022 DHPM and Bands 7:03 AM CDT Lymphocytes 17 (L) 18 - 42 % 01/25/2022 [facility] 7:03 AM CDT Monocytes 3 2 - 11 % 01/25/2022 [facility] 7:03 AM CDT Eosinophils 5 (H) 1 - 3 % 01/25/2022 [facility] 7:03 AM CDT Basophils 1 0 - 2 % 01/25/2022 [facility] 7:03 AM CDT Manual Absolute 2.96 1.56 - 01/25/2022 [facility] Neutrophil Count 6.45 7:03 AM [...] Reviewed by: Tech 01/25/2022 7:03 AM CDT [facility] Specimen Anatomical Collection Method Collection Time Receive d Time (Source) Location / / Volume Laterality Blood (Blood, 01/25/2022 5:35 AM 01/26/20 5:57 Venous) CDT AM CDT Darrick Santillan LAB BLOOD ADD-ON Performing Organization Address City/State/[facility] Code Phon e Number [facility] - [address] [place] [address] 05 [place] [address] [facility] 200 [facility] (ABNORMAL) Prothrombin Time (PT) (01/25/2022 5:35 AM CDT) [facility] gist Method Time Signature Prothrombin 31.9 (H) 9.4 - 12.5 01/25/2022 DTL Time, P sec 6:21 AM CDT INR 2.8 0.9 - 1.1 01/25/2022 DTL 6:21 AM CDT Comment: ----ADDITIONAL INFORMATION---- Standard intensity warfarin therapeutic range: 2.0 to 3.0 ?? High intensity warfarin therapeutic rang e: 2.5 to 3.5 Specimen Anatomical Collection Method Collection Time Receive d Time (Source) Location / / Volume Laterality Blood (Blood, 01/25/2022 5:35 AM 01/26/20 22 5:57 Venous) CDT AM CDT Darrick Santillan LAB BLOOD ADD-ON Performing Organization Address City/[facility] Phon e Number [facility] - [address] [place], [place] [address] [facility] [place] [address] [facility] [address] [facility] Magnesium (01/25/2022 5:30 AM CDT) P athologist Signature Magnesium, S 1.9 1.7 - 2.3 01/25/2022 DTL mg/dL 5:21 PM CDT Specimen Anatomical Collection Method Collection Time Receive d Time (Source) Location / / Volume Laterality Blood (Blood, 01/25/2022 5:30 AM 01/26/20 5:06 Venous) CDT PM CDT Darrick Santillan LAB BLOOD ADD-ON Performing Organization Address City/[facility] Code Phon e Number [facility] - [address] [place] [address] [place] [address] [address] [facility] Direct Antiglobulin Test (Poly) (01/25/2022 5:30 AM CDT) [facility] Method Time Signature Direct Negative Negative 01/25/2022 STR Antiglobulin 1:15 PM CDT Test, Polyspecific Specimen Anatomical Collection Method Collection Time Receive d Time (Source) Location / / Volume Laterality Blood (Blood, 01/25/2022 5:30 AM 01/26/20 22 Venous) CDT 11:46 AM CDT Darrick Santillan LAB BLOOD BANK TEST ORDERABL ES Performing Organization Address City/[facility]/ZIP [facility] Phon e Number [facility] - [address] [place] [address] 05 [facility] STRM [place] [address] [address] [facility] (ABNORMAL) Reticulocytes (01/25/2022 5:30 AM CDT) [facility] Method Time Signature Reticulocytes, B 6.67 (H) 0.60 - 01/25/2022 DTL 2.71 % 9:18 AM CDT Absolute 114.1 (H) 30.4 - 01/25/2022 DTL Reticulocyte 110.9 9:18 AM CDT x10(9)/L Specimen Anatomical Collection Method Collection Time Receive d Time (Source) Location / / Volume Laterality Blood (Blood, 01/25/2022 5:30 AM 01/26/20 22 9:03 Venous) CDT AM CDT Darrick Santillan LAB BLOOD ADD-ON Performing Organization Address City/[facility] Phon e Number [facility] - [address] [place] [address] [facility] [place] [address] [facility] 200 [facility] (ABNORMAL) Dipstick, Urine (01/24/2022 3:32 PM CDT) Patholo gist Method Time Signature Hemoglobin, Small [...] / Volume Laterality Urine 01/24/2022 3:32 PM 3:59 CDT PM CDT Yue Silver M.D. LAB URINE ORDERABLES Performing Organization Address City/[facility] Phon e Number [facility] - [address] [place] [address] [phone] [facility] [place] [address] [facility] 200 [facility] Osmolality, Urine (01/24/2022 3:32 PM CDT) P athologist Signature Osmolality, U 434 150 - 1150 01/24/2022 DTL mOsm/kg 4:29 PM CDT Specimen Anatomical Collection Method Collection Time Receive d Time (Source) Location / / Volume Laterality Urine 01/24/2022 3:32 PM 2 3:59 CDT PM CDT Yue Silver M.D. LAB URINE ORDERABLES Performing Organization Address City/[facility] Phon e Number [facility] - [address] [place] [address] pH, Random, Urine (01/24/2022 3:32 PM CDT) athologist Signature pH, Random, U 6.0 4.5 - 8.0 01/24/2022 DTL 4:29 PM CDT Specimen Anatomical Collection Method Collection Time Receive d Time (Source) Location / / Volume Laterality Urine 01/24/2022 3:32 PM 2 3:59 CDT PM CDT Yue Silver M.D. LAB URINE ORDERABLES Performing Organization Address City/[facility] Phon e Number [facility] - [address] (ABNORMAL) Microscopic Manual (01/24/2022 3:32 PM CDT) athologist Signature Microscopy Abnormal 01/24/2022 DTL 5:10 [...] / Volume Laterality Urine 01/24/2022 3:32 PM 3:59 CDT PM CDT Yue Silver M.D. LAB URINE ORDERABLES Performing Organization Address [facility] Phon e Number [facility] [address] Creatinine, Random, Urine (01/24/2022 3:32 PM CDT) athologist Signature Creatinine, 60 16 - 326 01/24/2022 DT Random, U mg/dL 4:50 PM CDT Specimen Anatomical Collection Method Collection Time Receive d Time (Source) Location / / Volume Laterality Urine (Urine, 01/24/2022 3:32 PM 01/25/20 3:59 Midstream) CDT PM CDT Yue Silver M.D. LAB URINE ORDERABLES Performing Organization Address [facility] Phon e Number [facility] - [address] Sodium, Random, Urine (01/24/2022 3:32 PM CDT) athologist Signature Sodium, Random, <10 mmol/L 01/24/2022 [facility] U 4:50 PM CDT Comment: ----REFERENCE VALUE---- [...] M.D. LAB URINE ORDERABLES Performing Organization Address [facility] Phon e Number [facility] - [address] (ABNORMAL) Urinalysis with Microscopic: Urine, Midstream (01/24/2022 3:32 PM CDT) [facility] Method Time Signature Source Urine, Urine, 01/24/2022 [...] M.D. LAB URINE ORDERABLES Performing Organization Address City/[facility] Phon e Number [facility] [address] (ABNORMAL) Bilirubin, Total (01/24/2022 1:35 PM CDT) athologist Signature Bilirubin, 11.9 (H) <=1.2 01/24/2022 DT Total, P mg/dL 2:33 PM CDT Specimen Anatomical Collection Method Collection Time Receive d Time (Source) Location / / Volume Laterality Blood 01/24/2022 1:35 PM 1:35 CDT PM CDT Darrick Santillan LAB BLOOD ADD-ON Performing Organization Address City/[facility] Phon e Number [facility] [address] (ABNORMAL) CBC without Differential (01/24/2022 5:22 AM CDT) [facility] Method Time Signature Hemoglobin 7.6 (L) 11.6 - 01/24/2022 DTL 15.0 g/dL 5:56 AM CDT Hematocrit 22.4 (L) 35.5 - 01/24/2022 DTL 44.9 % 5:56 AM CDT Erythrocytes 2.13 (L) 3.92 - 01/24/2022 DTL 5.13 5:56 AM CDT x10(12)/L MCV 105.2 (H) 78.2 - 01/24/2022 DTL 97.9 fL 5:56 AM CDT RBC Distrib Width 23.0 (H) 12.2 - 01/24/2022 DTL 16.1 % 5:56 AM CDT Platelet Count 51 (L) 157 - 371 01/24/2022 DTL x10(9)/L 5:56 AM CDT Leukocytes 6.1 3.4 - 9.6 01/24/2022 DTL x10(9)/L 5:56 AM CDT Specimen Anatomical Collection Method Collection Time Receive d Time (Source) Location / / Volume Laterality Blood (Blood, 01/24/2022 5:22 AM 01/25/20 5:45 Venous) CDT AM CDT Huang Diamond M.D. LAB BLOOD ADD-ON Performing Organization Address City/State/ZIP Code Phon e Number [facility] - [address] [place] [address] [phone] [facility] [place] [address] [facility] 200 [facility] (ABNORMAL) Basic Metabolic Panel (01/24/2022 5:22 AM CDT) P athologist Signature Potassium, S 4.8 3.6 - 5.2 01/24/2022 DTL mmol/L 6:14 AM CDT Sodium, S 136 135 - 145 01/24/2022 DTL mmol/L 6:14 AM CDT Chloride, S 103 98 - 107 01/24/2022 DTL mmol/L 6:14 AM CDT Bicarbonate, S 21 (L) 22 - 29 01/24/2022 DTL mmol/L 6:14 AM CDT Anion Gap 12 7 - 15 01/24/2022 DTL 6:14 AM CDT BUN (Blood Urea 23 (H) 6 - 21 01/24/2022 DTL Nitrogen), S mg/dL 6:14 AM CDT Creatinine 0.82 0.59 - 01/24/2022 DTL 1.04 mg/dL 6:14 AM CDT Estimated GFR >90 >=60 01/24/2022 DTL (eGFR) mL/min/BSA 6:14 AM CDT Comment: Estimated GFR calculated using the 2020 CKD_EPI creatinine equation. Calcium, Total, S 9.7 8.6 - 10.0 mg/dL 01/24/2022 6:14 AM CDT DTL Glucose, S 135 70 - 140 mg/dL 01/24/2022 6:14 AM CDT D TL Specimen Anatomical Collection Method Collection Time Receive d Time (Source) Location / / Volume Laterality Blood (Blood, 01/24/2022 5:22 AM 01/25/20 5:57 Venous) CDT AM CDT Huang Diamond M.D. LAB BLOOD ADD-ON Performing Organization Address City/[facility] Phon e Number [facility] - [address] [place] [address] (ABNORMAL) Bilirubin, Direct (01/24/2022 5:17 AM CDT) P athologist Signature Bilirubin, 5.1 (H) 0.0 - 0.3 01/24/2022 DTL Direct, S mg/dL 2:40 PM CDT Specimen Anatomical Collection Method Collection Time Receive d Time (Source) Location / / Volume Laterality Blood (Blood, 01/24/2022 5:17 AM 01/25/20 1:52 Venous) CDT PM CDT Darrick Santillan LAB BLOOD ADD-ON Performing Organization Address City/[facility] Phon e Number [address] (ABNORMAL) Cystatin C with Estimated GFR (01/24/2022 5:17 AM CDT) P athologist Signature eGFR by 33 (L) >60 01/24/2022 DTL Cystatin C mL/min/BSA 7:59 AM CDT Comment: Estimated GFR calculated using [...] lower with the new assay. Cystatin C 1.96 (H) 0.63 - 1.03 mg/L 01/24/2022 7:59 AM CDT DTL Specimen Anatomical Collection Method Collection Time Receive d Time (Source) Location / / Volume Laterality Blood (Blood, 01/24/2022 5:17 AM 01/25/20 7:33 Venous) CDT AM CDT Darrick Santillan LAB BLOOD ADD-ON Performing Organization Address City/State/ZIP Code Phon e Number [facility] - [address] [place] [phone] [place] [address] [place] [address] [facility] 200 [facility] Upper GI Endoscopy (01/23/2022 3:35 PM CDT) Specimen (Source) Anatomical Collection Method Collection Time Re ceived Time Location / / Volume Laterality 01/23/2022 3:35 PM CDT Impressions [employer] - 01/23/2022 4:08 PM CDT Post-op Diagnoses: [...] examination. ? - No specimens collected. Narrative [employer] - 01/23/2022 4:08 PM CDT Otto [...] M.D. GI PROCEDURE ORDERABLES Performing Organization Address City/[facility]/ZIP Code Ph[facility] ([facility] Prothrombin Time (PT) (01/23/2022 10:58 AM CDT) Wireless Tech Method Time Signature Prothrombin 29.9 (H) 9.4 - 12.5 01/23/2022 DTL Time, P sec 11:56 AM CDT INR 2.7 0.9 - 1.1 01/23/2022 DTL 11:56 AM CDT Comment: ----ADDITIONAL INFORMATION---- Standard intensity warfarin therapeutic range: 2.0 to 3.0 ?? High intensity warfarin therapeutic rang e: 2.5 to 3.5 Specimen Anatomical Collection Method Collection Time Receive d Time (Source) Location / / Volume Laterality Blood (Blood, 01/23/2022 10:58 01/23/2022 Venous) AM CDT 11:22 AM CDT Anthony Santillan LAB BLOOD ADD-ON Performing Organization Address City/State/ZIP Code Phon e Number [facility] - [address] [place] [address] [facility] [place] [place] [address] [facility] [address] (ABNORMAL) Prothrombin Time (PT) (01/23/2022 10:58 AM CDT) Wireless Tech Method Time Signature Prothrombin 31.5 (H) 9.4 - 12.5 01/23/2022 [facility] Time, P sec 11:12 AM CDT INR 2.8 0.9 - 1.1 [facility]/20[facility] AM [facility]T Comment: ----ADDITIONAL INFORMATION---- Standard intensity warfarin therapeutic range: 2.0 to 3.0 ?? High intensity warfarin therapeutic rang e: 2.5 to 3.5 Specimen Anatomical Collection Method Collection Time Receive d Time (Source) Location / / Volume Laterality Blood (Blood, 01/23/2022 10:58 01/23/2022 Venous) AM CDT 11:05 AM CDT Anthony Santillan LAB BLOOD ADD-ON Performing Organization Address City/State/ZIP Code Phon e Number [facility] - [address] [place], [place] [address] 05 [place] [address] [facility] [address] [facility] (ABNORMAL) Basic Metabolic Panel (01/23/2022 5:27 AM CDT) P athologist Signature Potassium, S 4.8 3.6 - 5.2 01/23/2022 DTL mmol/L 6:18 AM CDT Sodium, S 135 135 - 145 01/23/2022 DTL mmol/L 6:18 AM CDT Chloride, S 104 98 - 107 01/23/2022 DTL mmol/L 6:18 AM CDT Bicarbonate, S 20 (L) 22 - 29 01/23/2022 DTL mmol/L 6:18 AM CDT Anion Gap 11 7 - 15 01/23/2022 DTL 6:18 AM CDT BUN (Blood Urea 22 (H) 6 - 21 01/23/2022 DTL Nitrogen), S mg/dL 6:18 AM CDT Creatinine 0.77 0.59 - 01/23/2022 DTL 1.04 mg/dL 6:18 AM CDT Estimated GFR >90 >=60 01/23/2022 DTL (eGFR) mL/min/BSA 6:18 AM CDT Comment: Estimated GFR calculated using the 2020 CKD_EPI creatinine equation. Calcium, Total, S 9.1 8.6 - 10.0 mg/dL 01/23/2022 6:18 AM CDT DTL Glucose, S 118 70 - 140 mg/dL 01/23/2022 6:18 AM CDT D TL Specimen Anatomical Collection Method Collection Time Receive d Time (Source) Location / / Volume Laterality Blood (Blood, 01/23/2022 5:27 AM 01/24/20 5:57 Venous) CDT AM CDT Sree Little M.D. LAB BLOOD ADD-ON Performing Organization Address City/State/ZIP Code Phon e Number [facility] - 200 [place], [place] [address] 05 [facility] [place] [address] [facility] [address] [facility] (ABNORMAL) CBC with Differential, Blood (01/23/2022 5:27 AM CDT) [facility] Method Time Signature Hemoglobin 7.1 (L) 11.6 - 01/23/2022 DTL 15.0 g/dL 5:52 AM CDT Hematocrit 21.6 (L) 35.5 - 01/23/2022 DTL 44.9 % 5:52 AM CDT Erythrocytes 2.06 (L) 3.92 - 01/23/2022 DTL 5.13 5:52 AM CDT x10(12)/L MCV 104.9 (H) 78.2 - 01/23/2022 DTL 97.9 fL 5:52 AM CDT RBC Distrib Width 23.1 (H) 12.2 - 01/23/2022 DTL 16.1 % 5:52 AM CDT Platelet Count 52 (L) 157 - 371 01/23/2022 DTL x10(9)/L 5:52 AM CDT Leukocytes 5.9 3.4 - 9.6 01/23/2022 DTL x10(9)/L 5:52 AM CDT Neutrophils 4.19 1.56 - 01/23/2022 DTL 6.45 5:52 AM CDT x10(9)/L Lymphocytes 0.98 0.95 - 01/23/2022 DTL 3.07 5:52 AM CDT x10(9)/L Monocytes 0.57 0.26 - 01/23/2022 DTL 0.81 5:52 AM CDT x10(9)/L Eosinophils 0.09 0.03 - 01/23/2022 DTL 0.48 5:52 AM CDT x10(9)/L Basophils 0.03 0.01 - 01/23/2022 DTL 0.08 5:52 AM CDT x10(9)/L Specimen Anatomical Collection Method Collection Time Receive d Time (Source) Location / / Volume Laterality Blood (Blood, 01/23/2022 5:27 AM 01/24/20 5:44 Venous) CDT AM CDT Sree Little M.D. LAB BLOOD ADD-ON Performing Organization Address City/[facility] Code Phon e Number [facility] - [address] (ABNORMAL) Ammonia (01/23/2022 5:27 AM CDT) P athologist Signature Ammonia, P 109 (H) <=30 01/23/2022 DTL mcmol/L 6:11 AM CDT Specimen Anatomical Collection Method Collection Time Receive d Time (Source) Location / / Volume Laterality Blood (Blood, 01/23/2022 5:27 AM 01/24/20 5:41 Venous) CDT AM CDT Sree Little M.D. LAB BLOOD NON ADD-ON Performing Organization Address City/[facility]/ZIP Code Phon e Number [facility] - 200 [place] [phone] 05 [facility] [place] [address] [place] [address] (ABNORMAL) Hemoglobin (01/22/2022 10:18 PM CDT) P athologist Signature Hemoglobin 7.5 (L) 11.6 - 15.0 01/22/2022 DTL g/dL 10:47 PM CDT Specimen Anatomical Collection Method Collection Time Receive d Time (Source) Location / / Volume Laterality Blood (Blood, 01/22/2022 10:18 01/22/2022 Venous) PM CDT 10:34 PM CDT Sree Little M.D. LAB BLOOD ADD-ON Performing Organization Address City/State/ZIP Code Phon e Number [facility] - 200 [place], [place] [address] [facility] [place] [address] [facility] [address] [facility] Transfuse Red Blood Cells : (01/22/2022 8:01 PM CDT) Sree Little M.D. BLOOD TRANSFUSION ORDERABLES Transfuse Red Blood Cells : , 1 Units (01/22/2022 8:01 PM CDT) Sree Little M.D. BLOOD TRANSFUSION ORDERABLES (ABNORMAL) Basic Metabolic Panel (01/22/2022 9:40 AM CDT) P athologist Signature Potassium, P 4.3 3.6 - 5.2 01/22/2022 STMA mmol/L 10:04 AM CDT Sodium, P 136 135 - 145 01/22/2022 ST[facility] mmol/L 10:04 AM CDT Chloride, P 105 98 - 107 01/22/2022 [facility] mmol/L 10:04 AM CDT Bicarbonate, P 22 22 - 29 01/22/2022 [facility] mmol/L 10:04 AM CDT Anion Gap, P 9 7 - 15 01/22/2022 [facility] 10:04 AM CDT BUN (Blood Urea 21 6 - 21 01/22/2022 [facility] Nitrogen), P mg/dL 10:04 AM CDT Creatinine 0.67 0.59 - 01/22/2022 [facility] 1.04 mg/dL 10:04 AM CDT Estimated GFR >90 >=60 01/22/2022 [facility] (eGFR) mL/min/BSA 10:04 AM CDT Comment: Estimated GFR calculated using the 2020 CKD_EPI creatinine equation. Calcium, Total, P 9.1 8.6 - 10.0 mg/dL 01/22/2022 10:0 4 AM CDT STMA Glucose, P 150 (H) 70 - 140 mg/dL 01/22/2022 10:04 AM CDT STMA Specimen Anatomical Collection Method Collection Time Receive d Time (Source) Location / / Volume Laterality Blood (Blood, 01/22/2022 9:40 AM 01/23/20 9:48 Venous) CDT AM CDT Sree Little M.D. LAB BLOOD ADD-ON Performing Organization Address City/State/ZIP Code Phon e Number [facility] - 200 [place], [place] [address] [facility] [place] [address] [facility] 200 [facility] (ABNORMAL) CBC with Differential, Blood (01/22/2022 9:40 AM CDT) [facility] Method Time Signature Hemoglobin 6.0 (CL) 11.6 - 01/22/2022 DTL 15.0 g/dL 10:54 AM CDT Hematocrit 18.1 (L) 35.5 - 01/22/2022 DTL 44.9 % 10:54 AM CDT Erythrocytes 1.67 (L) 3.92 - 01/22/2022 DTL 5.13 10:54 AM CDT x10(12)/L MCV 108.4 (H) 78.2 - 01/22/2022 DTL 97.9 fL 10:54 AM CDT RBC Distrib Width 21.2 (H) 12.2 - 01/22/2022 DTL 16.1 % 10:54 AM CDT Platelet Count 58 (L) 157 - 371 01/22/2022 DTL x10(9)/L 10:54 AM CDT Leukocytes 4.4 3.4 - 9.6 01/22/2022 DTL x10(9)/L 10:54 AM CDT Neutrophils 2.98 1.56 - 01/22/2022 DTL 6.45 10:54 AM CDT x10(9)/L Lymphocytes 0.90 (L) 0.95 - 01/22/2022 DTL 3.07 10:54 AM CDT x10(9)/L Monocytes 0.44 0.26 - 01/22/2022 DTL 0.81 10:54 AM CDT x10(9)/L Eosinophils 0.08 0.03 - 01/22/2022 DTL 0.48 10:54 AM CDT x10(9)/L Basophils 0.03 0.01 - 01/22/2022 DTL 0.08 10:54 AM CDT x10(9)/L Specimen Anatomical Collection Method Collection Time Receive d Time (Source) Location / / Volume Laterality Blood 01/22/2022 9:40 AM 9:58 CDT AM CDT Sree Little M.D. LAB BLOOD ADD-ON Performing Organization Address City/[facility] Phon e Number [facility] - [address] [place] [address] 05 [facility] [place] [place] [address] Laboratories-[address] Type and Screen (with reflex Antibody ID) (01/22/2022 9:39 AM CDT) [facility] Method Time Signature ABORh B Pos Not 01/22/2022 STRM applicable 3:19 PM CDT Antibody Negative Negative 01/22/2022 STRM Screen 3:04 PM CDT Type & Screen 01/25/2022 01/22/2022 STRM Expiration 23:59 3:04 PM CDT Testing Jcarlos DEFAULT 01/22/2022 STRM Location 2:20 PM CDT Specimen Anatomical Collection Method Collection Time Receive d Time (Source) Location / / Volume Laterality Blood (Blood, 01/22/2022 9:39 AM 01/23/20 2:20 Venous) CDT PM CDT Kary Tracy M.D. LAB BLOOD BANK TEST ORDERABL ES Performing Organization Address [facility] Phon e Number [facility] - [address] [place] [address] [place] [address] [facility]-[address] (ABNORMAL) CBC with Differential, Blood (01/22/2022 9:39 AM CDT) [facility] [email or web address] Method Time Signature Hemoglobin 6.2 (L) 11.6 - 01/22/2022 [facility] 15.0 g/dL 10:17 AM CDT Hematocrit 18.2 (L) 35.5 - 01/22/2022 [facility] 44.9 % 10:17 AM CDT Erythrocytes 1.66 (L) 3.92 - 01/22/2022 [facility] 5.13 10:17 AM CDT x10(12)/L MCV 109.6 (H) 78.2 - 01/22/2022 ST[facility] 97.9 fL 10:17 AM CDT RBC Distrib Width 21.3 (H) 12.2 - 01/22/2022 ST[facility] 16.1 % 10:17 AM CDT Platelet Count 53 (L) 157 - 371 01/22/2022 ST[facility] x10(9)/L 10:17 AM CDT Leukocytes 4.7 3.4 - 9.6 01/22/2022 ST[facility] x10(9)/L 11:17 AM CDT Comment: Results confirmed by smear. Neutrophils 3.12 1.56 - 6.45 x10(9)/L 01/22/2022 11:17 AM CDT STMA Comment: Rechecked Lymphocytes 0.96 0.95 - 3.07 x10(9)/L 01/22/2022 11:17 AM CDT ST[facility] Monocytes 0.51 0.26 - 0.81 x10(9)/L 01/22/2022 11:17 AM CDT STMA Eosinophils 0.12 0.03 - 0.48 x10(9)/L 01/22/2022 11:17 AM CDT STMA Basophils 0.03 0.01 - 0.08 x10(9)/L 01/22/2022 11:17 AM CDT STMA Specimen Anatomical Collection Method Collection Time Receive d Time (Source) Location / / Volume Laterality Blood (Blood, 01/22/2022 9:39 AM 01/23/20 9:48 Venous) CDT AM CDT Sree Little M.D. LAB BLOOD ADD-ON Performing Organization Address City/State/ZIP Code Phon e Number [facility] - 200 [place], [place] [address] [place] [address] [facility] 200 [facility] (ABNORMAL) Prothrombin Time (PT) (01/22/2022 5:22 AM CDT) [facility] gist Method Time Signature Prothrombin 31.0 (H) 9.4 - 12.5 01/22/2022 DTL Time, P sec 6:27 AM CDT INR 2.8 0.9 - 1.1 01/22/2022 DTL 6:27 AM CDT Comment: ----ADDITIONAL INFORMATION---- Standard intensity warfarin therapeutic range: 2.0 to 3.0 ?? High intensity warfarin therapeutic rang e: 2.5 to 3.5 Specimen Anatomical Collection Method Collection Time Receive d Time (Source) Location / / Volume Laterality Blood (Blood, 01/22/2022 5:22 AM 01/23/20 5:37 Venous) CDT AM CDT Sree Little M.D. LAB BLOOD ADD-ON Performing Organization Address City/State/ZIP Code Phon e Number [facility] - [address] [place], [place] [address] [facility] [place] [address] [facility] [address] US Paracentesis with Imaging Guidance (01/21/2022 10:49 AM CDT) Anatomical Region Laterality Modality Abdomen, Ultrasound RST LOS, Ultrasound ARZ LOS, Procedure F LA N/A Ultrasound LOS, Abdominal FLA LOS, Procedural Specimen (Source) Anatomical Collection Method Collection Time Re ceived Time Location / / Volume Laterality 01/21/2022 10:27 AM CDT Impressions 01/21/2022 11:13 AM CDT Ultrasound-guided paracentesis. 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 Volume aspirated: 3013 cc of yellow flui d. Complication: None. Blood loss: None. Purpose: Diagnostic and therapeutic. PATIENT INSTRUCTIONS: Patient may be dis missed from the radiology department when dismissal criteria met. POST-PROCEDURE DIAGNOSIS: Ascites. Procedure Note Andrzej Pimentel M.D. - 01/21/2022Format ting of this note might be different [...] size: 5 Fr centesis catheter. Volume aspirated: 3013 cc of yellow flui d. Complication: None. Blood loss: None. Purpose: Diagnostic and therapeutic. PATIENT INSTRUCTIONS: Patient may be dis missed from the radiology department when dismissal criteria met. POST-PROCEDURE DIAGNOSIS: Ascites. IMPRESSION: Ultrasound-guided paracentesis. 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 IMG US PROCEDURES Protein, Total, Body Fluid (01/21/2022 10:00 AM CDT) P athologist Signature Protein, 0.5 See Comment 01/21/2022 [...] ical findings. All other fluids refer to [email or web address] for further inter pretive information. This test has been modified from the seal skinner's instructions. Its perform ance characteristics were determined by [facility] in a manner consistent with CLIA [...] Address City/State/ZIP Code Phon e Number [facility] - 200 [place], [place] [address] [facility] [place] [place] [address] [facility] [address] Cell Count and Differential, Body Fluid (01/21/2022 10:00 AM CDT) [facility] gist Method Time Signature Fluid Type [...] Its performance characteri stics were determined by [facility] in a manner co nsistent with [...] M.D. LAB BODY FLUIDS AND STOOLS O JOSE Performing Organization Address City/[facility] Phon e Number [facility] - 200 [place], [place] [address] [place] [address] Laboratories-[address] Bacterial Culture, Aerobic + Susc (01/21/2022 10:00 AM CDT) Patholo gist Method Time Signature Bacterial No growth 01/26/2022 DTL Culture, after 5 7:48 AM CDT Aerobic + Susc days of incubation. Specimen Anatomical Collection Method Collection Time Receive d Time (Source) Location / / Volume Laterality Fluid 01/21/2022 10:00 01/21/2022 (Peritoneal AM CDT 11:52 AM CDT Fluid) Comment: Specimen Source Site: Fluid Narrative [facility] - [facility] - 01/26/2022 7:48 AM CDT Bacterial Culture: Received Bactec aerob ic and Bactec anaerobic bottles Matthew Becerril M.D. LAB MICROBIOLOGY - GENERAL O JOSE Performing Organization Address [facility] Phon e Number [facility] - 200 [place], [place] [address] 05 [place] [address] [facility]-[address] (ABNORMAL) Comprehensive Metabolic Panel (01/21/2022 7:25 AM CDT) Analysis Performed At Patho logist Time Signature Potassium, S 4.6 3.6 - [...] Address City/State/ZIP Code Phon e Number [facility] - [address] [place], [place] [address] [facility] [place] [place] [address] [facility] [address] (ABNORMAL) Cystatin C with Estimated GFR (01/21/2022 7:25 AM CDT) P athologist Signature eGFR by 27 (L) >60 01/21/2022 DTL Cystatin C mL/min/BSA 9:04 AM CDT Comment: Estimated GFR calculated using [...] lower with the new assay. Cystatin C 2.27 (H) 0.63 - 1.03 mg/L 01/21/2022 9:04 AM CDT DTL Specimen Anatomical Collection Method Collection Time Receive d Time (Source) Location / / Volume Laterality Blood (Blood, 01/21/2022 7:25 AM 01/22/20 8:48 Venous) CDT AM CDT Matthew Becerril M.D. LAB BLOOD ADD-ON Performing Organization Address City/State/ZIP Code Phon e Number [facility] - [address] [place] [address] 05 [facility] [place] [address] [facility] 200 [facility] (ABNORMAL) CBC with Differential, Blood (01/21/2022 7:25 AM CDT) [facility] gist Method Time Signature Hemoglobin 6.7 (L) 11.6 - 01/21/2022 DTL 15.0 g/dL 10:13 AM CDT Hematocrit 20.7 (L) 35.5 - 01/21/2022 DTL 44.9 % 10:13 AM CDT Erythrocytes 1.88 (L) 3.92 - 01/21/2022 DTL 5.13 10:13 AM CDT x10(12)/L MCV 110.1 (H) 78.2 - 01/21/2022 DTL 97.9 fL 10:13 AM CDT RBC Distrib Width 22.2 (H) 12.2 - 01/21/2022 DTL 16.1 % 10:13 AM CDT Platelet Count 58 (L) 157 - 371 01/21/2022 DTL x10(9)/L 10:13 AM CDT Leukocytes 6.5 3.4 - 9.6 01/21/2022 DTL x10(9)/L 10:13 AM CDT Neutrophils 4.78 1.56 - 01/21/2022 DTL 6.45 10:13 AM CDT x10(9)/L Lymphocytes 1.05 0.95 - 01/21/2022 DTL 3.07 10:13 AM CDT x10(9)/L Monocytes 0.58 0.26 - 01/21/2022 DTL 0.81 10:13 AM CDT x10(9)/L Eosinophils 0.09 0.03 - 01/21/2022 DTL 0.48 10:13 AM CDT x10(9)/L Basophils 0.03 0.01 - 01/21/2022 DTL 0.08 10:13 AM CDT x10(9)/L Specimen Anatomical Collection Method Collection Time Receive d Time (Source) Location / / Volume Laterality Blood (Blood, 01/21/2022 7:25 AM 01/22/20 8:34 Venous) CDT AM CDT Matthew Becerril M.D. LAB BLOOD ADD-ON Performing Organization Address City/State/[facility] Code Phon e Number [facility] - [address] [place] [address] (ABNORMAL) Iron and Total Iron-Binding Capacity (01/21/2022 7:21 AM CDT) P athologist Signature Iron 118 35 - 145 [...] LAB BLOOD ADD-ON Performing Organization Address City/State/[facility] Phon e Number [facility] - [address] [place] [address] 05 [facility] [place] [address] (ABNORMAL) Ferritin (01/21/2022 7:21 AM CDT) P athologist Signature Ferritin, S 564 (H) 11 - 307 01/22/2022 DTL mcg/L 5:18 PM CDT Specimen Anatomical Collection Method Collection Time Receive d Time (Source) Location / / Volume Laterality Blood (Blood, 01/21/2022 7:21 AM 01/23/20 4:23 Venous) CDT PM CDT Sree Little M.D. LAB BLOOD ADD-ON Performing Organization Address City/[facility] Phon e Number [facility] - [address] [place], [place] [address] [facility] [place] [address] Laboratories-[address] (ABNORMAL) Hepatic Function Panel (01/21/2022 2:40 AM CDT) Patholo gist Method Time Signature [...] 01/22/20 3:04 Venous) CDT AM CDT Haile Ketih M.D. LAB BLOOD ADD-ON Performing Organization Address City/[facility] Code Phon e Number [facility] - [address] [place], [place] [address] [facility] [place] [address] Lipase (01/21/2022 2:40 AM CDT) P athologist Signature Lipase, S 26 13 - 60 U/L 01/21/2022 3:23 DTL AM CDT Specimen Anatomical Collection Method Collection Time Receive d Time (Source) Location / / Volume Laterality Blood (Blood, 01/21/2022 2:40 AM 01/22/20 3:05 Venous) CDT AM CDT Cody Knight M.D. LAB BLOOD ADD-ON Performing Organization Address City/State/ZIP Code Phon e Number [facility] - [address] [place], [place] [address] [place] [address] Abdomen Pelvis without IV Contrast (01/20/2022 10:00 PM CDT) Anatomical Region Laterality Modality Abdomen, Pelvis, Abdominal RST LOS, N/A Comp uted Tomography, Computed Abdominal ARZ LOS, Abdominal FLA LOS José Miguel ography Specimen (Source) Anatomical Collection Method Collection Time Re ceived Time Location / / Volume Laterality 01/20/2022 10:08 PM CDT Impressions 01/21/2022 6:47 AM CDT 1. No urinary calculi or hydronephrosis. 2. Cirrhosis with sequela of portal hype rtension. 3. Multiple age indeterminate thoracolum bar compression deformities are new since 11/25/2021. Narrative 01/21/2022 6:47 AM CDT EXAM: ??CT ABDOMEN PELVIS WITHOUT IV CONTRAST COMPARISON: ??CT abdomen pelvis 11/26/19 FINDINGS: ??No urinary calculi. No hydro nephrosis. Nodular cirrhotic contour with sequela o f portal hypertension including upper abdominal varices, splenomegaly, and large volume ascites. Biliary sludge or stones in the gallblad ijeoma. Pancreatic parenchymal calcifications consistent with sequela of chronic pancreatitis. Noncont rast appearance of both adrenals are unremarkable. Normal caliber bowel. Negative appendix. IUD. M arked body wall edema. Small right and trace left pleural effusions with basilar atelectasis. Since CT abdomen pelvis 11/25/2021, new moderate L1 and mild T10, T11, L2, L3, and L4 compression deformities. Stable mild height loss of L5. The L1 compression deformity contributes to mild retropulsion into the spinal canal. Procedure Note Ankita Haynes M.D. - 01/21/2022Formatt ing of this note might be different from the original. EXAM: CT ABDOMEN PELVIS WITHOUT IV CONTR AST COMPARISON: CT abdomen pelvis 11/25/2021 FINDINGS: No urinary calculi. No hydrone phrosis. Nodular cirrhotic contour with sequela o f portal hypertension including upper abdominal varices, splenomegaly, and large volume ascites. Biliary sludge or stones in the gallblad ijeoma. Pancreatic parenchymal calcifications consistent with sequela of chronic pancreatitis. Noncont rast appearance of both adrenals are unremarkable. Normal caliber bowel. Negative appendix. IUD. M arked body wall edema. Small right and trace left pleural effusions with basilar atelectasis. Since CT abdomen pelvis 11/25/2021, new moderate L1 and mild T10, T11, L2, L3, and L4 compression deformities. Stable mild height loss of L5. The L1 compression deformity contributes to mild retropulsion into the spinal canal. IMPRESSION: 1. No urinary calculi or hydronephrosis. 2. Cirrhosis with sequela of portal hype rtension. 3. Multiple age indeterminate thoracolum bar compression deformities are new since 11/25/2021. Cody Knight M.D. [facility] CT PROCEDURES (ABNORMAL) Dipstick, POCT, Urine (01/20/2022 9:05 PM CDT) [facility] Method Time Signature Glucose, Negative Negative 01/20/2022 PCED POCT, U mg/dL 9:06 PM CDT Ketone, POCT, Trace (A) Negative 01/20/2022 PCED U mg/dL 9:06 PM CDT Specific 1.015 1.005 - 01/20/2022 PCED [place], 1.030 9:06 PM CDT POCT, U Blood, [...] / Volume Laterality Urine 01/20/2022 9:05 PM 2 9:06 CDT PM CDT Unknown Provider LAB POCT ORDERABLES - DEVICE Performing Organization Address City/State/ZIP Code Phon e Number POC RST [facility] [address] [place] [address] OUTPATIENT LABS PCED [facility] [place] [address] [facility] 200 [facility] (ABNORMAL) Dipstick, Urine (01/20/2022 8:57 PM CDT) Patholo gist Method Time Signature Hemoglobin, Negative Negative 01/20/2022 DTL QL, U 10:03 PM CDT Leukocyte Negative Negative 01/20/2022 DTL Esterase, U 10:03 PM CDT Nitrite, U Negative Negative 01/20/2022 DTL 10:03 PM CDT Ketone, U 5 (A) Negative 01/20/2022 DTL mg/dL 10:03 PM CDT Glucose, U Negative Negative 01/20/2022 DTL mg/dL 10:03 PM CDT Specimen Anatomical Collection Method Collection Time Receive d Time (Source) Location / / Volume Laterality Urine 01/20/2022 8:57 PM 2 9:23 CDT PM CDT Cody Knight M.D. LAB URINE ORDERABLES Performing Organization Address City/State/ZIP Code Phon e Number [facility] - [address] [place] [address] [facility] [place] [address] [facility] [address] [facility] pH, Urine (01/20/2022 8:57 PM CDT) P athologist Signature pH, U 5.5 4.5 - 8.0 01/20/2022 9:48 DTL PM CDT Specimen Anatomical Collection Method Collection Time Receive d Time (Source) Location / / Volume Laterality Urine 01/20/2022 8:57 PM 2 9:23 CDT PM CDT Cody Knight M.D. LAB URINE ORDERABLES Performing Organization Address City/[facility]/ZIP Code Phon e Number [facility] - [address] [place], [place] [address] [place] [id number] [place] [address] Osmolality, Urine (01/20/2022 8:57 PM CDT) P athologist Signature Osmolality, U 401 150 - 1150 01/20/2022 DT mOsm/kg 9:48 PM CDT Specimen Anatomical Collection Method Collection Time Receive d Time (Source) Location / / Volume Laterality Urine 01/20/2022 8:57 PM 2 9:23 CDT PM CDT Cody Knight M.D. LAB URINE ORDERABLES Performing Organization Address [facility] Phon e Number [facility] - [address] [place], [place] [address] [place] [address] Microscopic Automated (01/20/2022 8:57 PM CDT) P athologist Signature Microscopy Normal 01/20/2022 DTL [...] M.D. LAB URINE ORDERABLES Performing Organization Address [facility] Phon e Number [facility] - [address] [place], [place] [address] [place], [place] [id number] [place] [address] Gram Stain, Urine (01/20/2022 8:57 PM CDT) Patholo gist Method Time Signature Source Urine, 01/20/2022 DTL Urine, 9:22 PM CDT Straight Catheter Gram Stain, U Negative Negative 01/20/2022 DTL 10:25 PM CDT Specimen Anatomical Collection Method Collection Time Receive d Time (Source) Location / / Volume Laterality Urine 01/20/2022 8:57 PM 9:22 CDT PM CDT Cody Knight M.D. LAB URINE ORDERABLES Performing Organization Address City/[facility]/ZIP Code Phon e Number [facility] - [address] [place], [place] [address] [facility] [place] [address] Laboratories-[address] Bacterial Culture, Aerobic + Susc, Urine (01/20/2022 8:57 PM CDT) [facility] [email or web address] Method Time Signature Urine Culture No growth [...] Address City/State/ZIP Code Phon e Number [facility] - [address] [place], [place] [address] [facility] [place] [place] [address] Laboratories-[address] Urinalysis with Microscopic: Urine, Straight Catheter (01/20/2022 8:57 PM CDT) [facility] [email or web address] Method Time Signature Source Urine, 01/20/2022 DTL Urine, 9:22 PM CDT Straight Catheter Color, U Yellow 01/20/2022 DTL 9:23 PM CDT Clarity, U Clear 01/20/2022 DTL 9:23 PM CDT Protein, U 12 <26 mg/dL 01/20/2022 DTL 10:02 PM CDT Protein/Osmola 0.30 <0.42 01/20/2022 DTL lity ratio 10:02 PM CDT Predicted 24 224 mg/24 h 01/20/2022 DTL Hr Protein 10:02 PM CDT Predicted 55-906 mg/24 h 01/20/2022 DTL Range 10:02 PM CDT Specimen Anatomical Collection Method Collection Time Receive d Time (Source) Location / / Volume Laterality Urine (Urine, 01/20/2022 8:57 PM 01/21/20 9:22 Straight CDT PM CDT Catheter) Cody Knight M.D. LAB URINE ORDERABLES Performing Organization Address City/State/ZIP Code Phon e Number [facility] - [address] [place], [place] [address] [facility] [place] [place] [address] [facility] 200 [facility] (ABNORMAL) Venous Blood Gas and Electrolytes CG8+, POCT (01/20/2022 8:54 PM CDT) P athologist Signature Sample Site, Venstick 01/20/2022 [...] B 33 Not Applicable mm Hg 01/21/20 11:46 PM CDT PCSM Comment: ----ADDITIONAL INFORMATION---- [...] POCT ORDERABLES - DEVICE Performing Organization Address [facility] Phon e Number POC [facility]ST [facility] [address] [place], [place] [address] LABS [place]CS[place], [place] [id number] [place] [address] [place] [address] Lactate, POCT (01/20/2022 8:51 PM CDT) P athologist Signature Lactate, POCT 1.50 0.50 - 01/20/2022 PCLX 2.20 11:45 PM CDT mmol/L Sample Site, Venstick 01/20/2022 PCLX POCT 11:45 PM CDT Specimen Anatomical Collection Method Collection Time Receive d Time (Source) Location / / Volume Laterality Blood 01/20/2022 8:51 PM 2 CDT 11:46 PM CDT Unknown Provider LAB POCT ORDERABLES - DEVICE Performing Organization Address City/[facility] Phon e Number POC [facility] [address] [place] [address] [place] [address] [facility] [address] [facility] hCG (Human Chorionic Gonadotropin), Quantitative, (01/20/2022 8:49 PM CDT) P athologist Signature HCG, 0.5 <5 IU/L [facility], 9:19 PM CDT , P Specimen Anatomical Collection Method Collection Time Receive d Time (Source) Location / / Volume Laterality Blood (Blood, 01/20/2022 8:49 PM 01/21/20 22 9:01 Venous) CDT PM CDT oCdy Knight M.D. LAB BLOOD ADD-ON Performing Organization Address City/[facility]/ZIP Code Phon e Number [facility] - [address] [place], [place] [address] [facility] [place] [address] Lactate, POCT (01/20/2022 8:49 PM CDT) Analysis Performed At Patho logist Time Signature Lactate, POCT Collected DEFAULT 01/20/2022 SMLX 8:49 PM CDT Specimen Anatomical Collection Method Collection Time Receive d Time (Source) Location / / Volume Laterality Blood (Blood, 01/20/2022 8:49 PM 01/21/20 22 8:49 Venous) CDT PM CDT Cody Knight M.D. LAB POCT ORDERABLES - DEVICE Performing Organization Address City/[facility]/ZIP Code Phon e Number [facility] - [address] [place], [place] [address] [facility] [place] [address] Laboratories-[address] Venous Blood Gas and Electrolytes CG8+, POCT (01/20/2022 8:49 PM CDT) Analysis Performed At Patho logist Time Signature VBG & Lytes Collected DEFAULT 01/20/2022 SMLX CG8+, POCT, B 8:49 PM CDT Specimen Anatomical Collection Method Collection Time Receive d Time (Source) Location / / Volume Laterality Blood (Blood, 01/20/2022 8:49 PM 01/21/20 22 8:49 Venous) CDT PM CDT Cody Knight M.D. LAB POCT ORDERABLES - DEVICE Performing Organization Address City/[facility]/ZIP Code Phon e Number [facility] - [address] [place], [place] [address] [facility] [place] [address] Laboratories[address] (ABNORMAL) Basic Metabolic Panel (01/20/2022 8:49 PM CDT) Analysis Performed At Patho logist Time Signature Potassium, P 5.2 3.6 - 5.2 01/20/2022 ST[facility] mmol/L 9:36 PM CDT Sodium, P 136 135 - 145 01/20/2022 [facility] mmol/L 9:36 PM CDT Chloride, P 105 98 - 107 01/20/2022 [facility] mmol/L 9:36 PM CDT Bicarbonate, P 20 (L) 22 - 29 01/20/2022 [facility] mmol/L 9:36 PM CDT Anion Gap, P 11 7 - 15 01/20/2022 [facility] 9:36 PM CDT BUN (Blood Urea 39 (H) 6 - 21 01/20/2022 [facility] Nitrogen), P mg/dL 9:36 PM CDT Creatinine 1.24 (H) 0.59 - 01/20/2022 [facility] 1.04 mg/dL 9:36 PM CDT Estimated GFR 60 >=60 01/20/2022 [facility] (eGFR) mL/min/BSA 9:36 PM CDT Comment: Estimated GFR calculated using the 2020 CKD_EPI creatinine equation. Calcium, Total, P 9.1 8.6 - 10.0 mg/dL 01/20/2022 9:36 PM CDT [facility] Glucose, P 122 70 - 140 mg/dL 01/20/2022 9:36 PM CDT S TMA Specimen Anatomical Collection Method Collection Time Receive d Time (Source) Location / / Volume Laterality Blood (Blood, 01/20/2022 8:49 PM 01/21/20 9:01 Venous) CDT PM CDT Cody Knight M.D. LAB BLOOD ADD-ON Performing Organization Address City/State/ZIP Code Phon e Number [facility] - [address] [place] [address] 05 [facility] [place] [address] Laboratories[address] documented in this encounter Visit Diagnoses Diagnosis Failure Renal Acute (Acute Kidney Injury ) (HCC) - Primary Cirrhosis Alcoholic (HCC) Alcohol Use Unspecified With Unspecified Alcohol Induced Disorder (HCC) Ascites Hepatic Failure Unspecified Without Coma (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 (HCC ) Debility [R53.81 (ICD-10-CM)] Decline Functional Status [R53.81 (ICD-1 0-CM)] Thrombocytopenia (HCC) Ascites Chronic Hypertension Portal (HCC) Abnormal Liver Function Test Esophageal Varices Without Bleeding (HCC ) Anemia Deficiency Coagulation Acquired (HCC) Chronic Pain Syndrome Cirrhosis Alcoholic (HCC) Hypertension Portal (HCC) documented in this encounter Admitting Diagnoses Diagnosis Failure Renal Acute (Acute Kidney Injury ) (HCC) Cirrhosis Alcoholic (HCC) Ascites documented in this encounter Administered Medications Inactive Administered Medications - up to 3 most recent administrations Medication Order MAR Action Action Date Dose Rate Site albumin human 25 % injection 25 New Bag 01/27/2022 1:42 PM CDT 25 g 100 mL/hr g 25 g, intravenous, Once, On Wed01/27/22 at 1230, For 1 dose, If no infusion rate specified: Administer the 25% solution at 100 mL/hr albumin human 25 % injection 75 g New Bag 01/21/2022 8:06 AM CDT 75 g 75 g, intravenous, Once, On Wed01/21/22 at 0630, For 1 dose, If no infusion rate specified: Administer the 25% solution at 100 mL/hr albumin human 5 % injection 50 g New Bag 01/25/2022 5:51 PM CDT 50 g 500 mL/hr 50 g, intravenous, at 500 mL/hr, Administer over 2 Hours, Once, On Wed01/25/22 at 1545, For 1 dose, If no infusion rate specified: Administer the 5% solution at 999 mL/hr or less if ICU/shock, otherwise infuse at 250 mL/hr. albumin human 5 % injection 75 g New Bag 01/24/2022 8:43 PM CDT 75 g 75 g, intravenous, Once, On 01/24/22 at 1730, For 1 dose, If no infusion rate specified: Administer the 5% solution at 999 mL/hr or less if ICU/shock, otherwise infuse at 250 mL/hr. cefTRIAXone in dextrose (iso-osm) IVPB New Bag 01/21/2022 8:06 AM CDT 2 g 200 mL/hr 2 g (ROCEPHIN) 2 g, intravenous, at 200 mL/hr, Administer over 15 Minutes, Every 24 hours, First dose on Wed01/21/22 at 0630, Drug Monitoring Program: Pharmacist to adjust medication dosing based on indication and drug clearance factors., Indications: Prophylaxis, medical, Concern for Spontaneous bacterial peritonitis cefTRIAXone in dextrose (iso-osm) IVPB New Bag 01/22/2022 8:42 AM CDT 2 g 200 mL/hr 2 g (ROCEPHIN) 2 g, intravenous, at 200 mL/hr, Administer over 15 Minutes, Every 24 hours, First dose on Wed01/22/22 at 0900, For 4 days, Drug Monitoring Program: Pharmacist to adjust medication dosing based on indication and drug clearance factors., Indications: Intra-abdominal infection, community acquired, spontaneous bacterial peritonitis cholecalciferol (vitamin D3) tablet 25 m cg Given 01/29/2022 9:00 AM CDT 25 mcg 25 mcg, oral, Daily, First dose on Wed01/21/22 at 0900, cholecalciferol (vitamin D3) orderable was interchanged for cholecalciferol (vitamin D3) tablet/capsule Given 01/28/2022 8:31 AM CDT 25 mcg Given 01/27/2022 8:14 AM CDT 25 mcg ciprofloxacin tablet 500 mg (CIPRO) Given 01/29/2022 6:20 AM CDT 500 mg 500 mg, oral, Daily before breakfast, First dose on Wed01/23/22 at 0700, Take 2 hours before or 6 hours after antacids containing magnesium or aluminum, sucralfate, didanosine, polymeric phosphate binders, or products containing calcium, iron, or zinc., Drug Monitoring Program: Pharmacist to adjust medication dosing based on indication and drug clearance factors., Indications: Prophylaxis, medical, SBP prophylaxis Given 01/28/2022 6:41 AM CDT 500 mg Given 01/27/2022 6:24 AM CDT 500 mg copper 4,000 mcg in NaCl 0.9% New Bag 01/27/2022 4:38 PM CDT 4 ,000 mcg 128 mL/hr IVPB 4,000 mcg (4 mg), intravenous, at 128 mL/hr, Administer over 4 Hours, Once, On Wed01/27/22 at 1530, For 1 dose, Do not exceed infusion rate of 1 mg/hr. cyclobenzaprine tablet 5 mg (FLEXERIL) Given 01/28/2022 1:50 AM CDT 5 mg 5 mg, oral, Daily PRN, muscle spasms, Starting on Wed01/21/22 at 0605 Given 01/27/2022 9:01 PM CDT 5 mg Given 01/27/2022 11:49 AM CDT 5 mg diclofenac sodium 1 % gel 2 g (VOLTAREN) Given 01/29/2022 9:04 AM CDT 2 g 2 g, topical, 4 times daily, First dose on Wed01/21/22 at 0800, Do not exceed 32 g per day, over all affected joints. Use dosing card to measure product. 2 g = 2.25 inches, 4 gm = 4.5 inches. Rinse dosing card after use and save for each administration. Given 01/28/2022 12:00 PM CDT 2 g Given 01/28/2022 8:32 AM CDT 2 g enoxaparin injection 40 mg Given 01/25/2022 11:41 AM CDT 40 mg Right Lower Abdomen (LOVENOX) 40 mg, subcutaneous, Every 24 hours scheduled, First dose on 01/24/22 at 1415 Given 01/24/2022 3:33 PM CDT 40 mg Right Lower Abdomen erythromycin 250 mg in NaCl 0.9% New Bag 01/25/2022 10:36 PM C DT 250 mg 105 mL/hr IVPB (ERYTHROCIN) 250 mg, intravenous, at 105 mL/hr, Administer over 60 Minutes, Once, On 01/25/22 at 2300, For 1 dose, Indications: gastric emptying before EGD fentaNYL injection 25 mcg (SUBLIMAZE) Given 01/27/2022 4:53 AM CDT 25 mcg 25 mcg, intravenous, Every 2 min PRN, moderate pain or score 4-6 of 10, severe pain or score 7-10 of 10, Starting on 01/26/22 at 1657, PACU (only), Up to maximum total dose of 200 mcg Given 01/26/2022 9:56 PM CDT 25 mcg fentaNYL injection 50 mcg (SUBLIMAZE) Given 01/21/2022 12:14 AM CDT 50 mcg 50 mcg, intravenous, Once, On Tu01/20/22 at 2357, For 1 dose fentaNYL injection 50 mcg (SUBLIMAZE) Given 01/21/2022 5:39 AM CDT 50 mcg 50 mcg, intravenous, Every 30 min PRN, severe pain or score 7-10 of 10, Starting on Wed01/21/22 at 0220, For 3 doses Given 01/21/2022 2:28 AM CDT 50 mcg folic acid tablet 1 mg Given 01/29/2022 9:00 AM CDT 1 mg 1 mg, oral, Daily, First dose on Wed01/21/22 at 0900 Given 01/28/2022 8:31 AM CDT 1 mg Given 01/27/2022 8:14 AM CDT 1 mg furosemide injection 20 mg (LASIX) Given 01/26/2022 6:30 PM CDT 20 mg 20 mg, intravenous, Once, On Wed01/26/22 at 1730, For 1 dose, Adults: Doses less than 120 mg: IV push over 20 mg/minute. Doses 120 mg or greater: IVPB at 4 mg/minute. Peds/Neonates: Doses less than 120 mg over 0.5 mg/kg/minute. Doses 120 mg or greater: IVPB at 4 mg/minute. furosemide tablet 20 mg (LASIX) Given 01/29/2022 9:00 AM CDT 20 mg 20 mg, oral, Daily, First dose (after last modification) on Wed01/28/22 at 0900 Given 01/28/2022 8:32 AM CDT 20 mg HYDROmorphone tablet 1 mg (DILAUDID) Given 01/27/2022 8:14 AM CDT 1 mg 1 mg, oral, Every 6 hours PRN, moderate pain or score 4-6 of 10, severe pain or score 7-10 of 10, Starting on Wed01/25/22 at 1332, For severe pain, only after trying lidocaine, heat, conservative management Given 01/27/2022 12:30 AM CDT 1 mg Given 01/26/2022 6:28 PM CDT 1 mg HYDROmorphone tablet 1 mg (DILAUDID) Given 01/28/2022 12:00 PM CDT 1 mg 1 mg, oral, Every 24 hours PRN, moderate pain or score 4-6 of 10, severe pain or score 7-10 of 10, Starting on Tu01/27/22 at 1330, For severe pain, only after trying lidocaine, heat, conservative management Given 01/27/2022 4:22 PM CDT 1 mg HYDROmorphone tablet 1 mg (DILAUDID) Given 01/28/2022 2:47 AM CDT 1 mg 1 mg, oral, Once, On Wed01/28/22 at 0245, For 1 dose HYDROmorphone tablet 1 mg (DILAUDID) Given 01/29/2022 8:56 AM CDT 1 mg 1 mg, oral, Every 4 hours PRN, moderate pain or score 4-6 of 10, severe pain or score 7-10 of 10, Starting on Wed01/28/22 at 1330, For severe pain, only after trying lidocaine, heat, conservative management Given 01/29/2022 5:37 AM CDT 1 mg Given 01/28/2022 9:11 PM CDT 1 mg HYDROmorphone tablet 2 mg (DILAUDID) Given 01/25/2022 11:41 AM CDT 2 mg 2 mg, oral, Every 6 hours PRN, moderate pain or score 4-6 of 10, severe pain or score 7-10 of 10, Starting on Wed01/21/22 at 0620 Given 01/25/2022 5:38 AM CDT 2 mg Given 01/24/2022 9:20 PM CDT 2 mg lactated ringers New Bag 01/23/2022 6:18 PM CDT 20 mL/hr 20 mL/hr 20 mL/hr, intravenous, Continuous, Starting on Wed01/23/22 at 1600, PACU & Post-Op lactulose solution 10 g (CHRONULAC) Given 01/25/2022 11:11 AM CDT 10 g 10 g, oral, 3 times daily, First dose on Wed01/21/22 at 0900, For 324 days Given 01/24/2022 8:42 PM CDT 10 g Given 01/24/2022 3:28 PM CDT 10 g lactulose solution 10 g (CHRONULAC) Given 01/22/2022 6:51 PM CDT 10 g 10 g, oral, Once, On Wed01/22/22 at 1615, For 1 dose lactulose solution 10 g (CHRONULAC) Given 01/26/2022 8:51 AM CDT 10 g 10 g, oral, Every 3 hours scheduled, First dose on Wed01/25/22 at 1515 Given 01/26/2022 5:00 AM CDT 10 g Given 01/26/2022 12:32 AM CDT 10 g lactulose solution 20 g (CHRONULAC) Given 01/29/2022 8:59 AM CDT 20 g 20 g, oral, 4 times daily, First dose (after last modification) on Wed01/26/22 at 1700 Given 01/28/2022 9:12 PM CDT 20 g Given 01/28/2022 4:50 PM CDT 20 g lidocaine (PF) 10 mg/mL (1 %) injection Given 01/21/2022 10:09 5 mL Abdominal (XYLOCAINE) AM CDT Tissue Code/trauma/sedation medication, Starting on Wed01/21/22 at 1009 lidocaine 10 mg/mL (1 %) injection Given 01/27/2022 10:12 5 mL Abdominal (XYLOCAINE) AM CDT Tissue Code/trauma/sedation medication, Starting on Wed01/27/22 at 1012 lidocaine 5 % 1 patch Medication Applied 01/29/2022 8:59 AM 1 patch Lower Back (LIDODERM) CDT 1 patch, transdermal, Administer over 12 Hours, Daily, First dose on Wed01/21/22 at 0900, Remove after 12 hours. Medication Applied 01/28/2022 4:55 PM CDT 1 patch Lower Back Medication Applied 01/27/2022 8:13 AM CDT 1 patch Flank lidocaine viscous 2 % 15 mL, alum-mag Given 01/26/2022 9:42 PM C DT 45 mL hydroxide-simeth 30 mL susp 45 mL, oral, Once as needed, Post EGD discomfort, Starting on Wed01/26/22 at 1921, For 1 dose, Mix ingredients prior to administration magnesium oxide tablet 400 mg (MAG-OX) Given 01/29/2022 9:12 AM CDT 400 mg 400 mg, oral, 2 times daily before breakfast and dinner, First dose on Wed01/21/22 at 0700 Given 01/28/2022 4:50 PM CDT 400 mg Given 01/28/2022 6:41 AM CDT 400 mg magnesium sulfate in water IVPB 2 g New Bag 01/25/2022 6:03 PM CDT 2 g 25 mL/hr 2 g, intravenous, at 25 mL/hr, Administer over 120 Minutes, Once, On Wed01/25/22 at 1745, For 1 dose menthol lozenge 1 lozenge Given 01/27/2022 1:41 PM CDT 1 lozenge 1 lozenge, oral, As needed, sore throat, Starting on Wed01/27/22 at 0800 naloxone injection 0.2 mg (NARCAN) 0.2 mg, intravenous, As needed, respirat ory depression, Starting on Wed01/21/22 at 0624, For RASS Score -4 or less, respiratory rate of l ess than 8 breaths/min. Notify provider/service and rapid response team (if av ailable at institution). pantoprazole DR tablet 40 mg (PROTONIX) Given 01/29/2022 6:20 AM CDT 40 mg 40 mg, oral, Daily before breakfast, First dose on Wed01/21/22 at 0700, Swallow whole. Do NOT crush, chew, or split tablet. Given 01/28/2022 6:41 AM CDT 40 mg Given 01/27/2022 6:24 AM CDT 40 mg prochlorperazine injection 5 mg (COMPAZI NE) Given 01/25/2022 10:13 PM CDT 5 mg 5 mg, intravenous, Once, On Wed01/25/22 at 2230, For 1 dose, 15-30 min before erythromycin, due to history of N/V with azithromycin prochlorperazine tablet 10 mg (COMPAZINE ) Given 01/24/2022 9:26 PM CDT 10 mg 10 mg, oral, 3 times daily PRN, nausea, Starting on Wed01/21/22 at 0605 Given 01/22/2022 8:27 PM CDT 10 mg Given 01/22/2022 3:54 PM CDT 10 mg rifAXIMin tablet 550 mg (XIFAXAN) Given 01/29/2022 9:00 AM CDT 550 mg 550 mg, oral, 2 times daily, First dose on Wed01/21/22 at 0900, For 324 days, Indications: Prophylaxis, medical Given 01/28/2022 9:11 PM CDT 550 mg Given 01/28/2022 8:32 AM CDT 550 mg sodium chloride 0.9 % injection 3 mL Given 01/28/2022 9:14 PM CDT 3 mL 3 mL, intravenous, Every 12 hours scheduled, First dose on Wed01/21/22 at 0900, Peripheral Intravenous Catheter and Rapid Infusion Catheter, when no infusion to maintain patency Given 01/28/2022 10:00 AM CDT 3 mL Given 01/26/2022 9:08 PM CDT 3 mL spironolactone tablet 50 mg (ALDACTONE) Given 01/29/2022 9:00 AM CDT 50 mg 50 mg, oral, Daily, First dose (after last modification) on Wed01/28/22 at 0900 Given 01/28/2022 8:32 AM CDT 50 mg thiamine tablet 100 mg (VITAMIN B1) Given 01/29/2022 9:00 AM CDT 100 mg 100 mg, oral, Daily, First dose on Wed01/21/22 at 0900 Given 01/28/2022 8:31 AM CDT 100 mg Given 01/27/2022 8:15 AM CDT 100 mg traZODone tablet 50 mg (DESYREL) Given 01/28/2022 9:12 PM CDT 50 mg 50 mg, oral, Daily at bedtime, First dose on Wed01/21/22 at 2100 Given 01/27/2022 9:01 PM CDT 50 mg Given 01/26/2022 9:07 PM CDT 50 mg vitamin A capsule 3,000 mcg Given 01/28/2022 8:32 AM CDT 3,000 mcg 3,000 mcg, oral, 3 times weekly (Once per day on Wed), First dose on Wed01/21/22 at 0900, For 109 days, Vitamin A (retinol): Units x 0.3 = mcg; 10,000 Units = 3,000 mcg Vitamin A (Supplemental Beta-carotene): Units x 0.3 = mcg Vitamin A (Dietary Beta-carotene): Units x 0.05 = mcg Given 01/26/2022 8:56 AM CDT 3,000 mcg Given 01/23/2022 8:24 AM CDT 3,000 mcg zinc sulfate capsule 220 mg (ZINCATE) Given 01/29/2022 9:00 AM CDT 220 mg 220 mg, oral, Daily with breakfast, First dose on Wed01/21/22 at 0800, Doses listed in zinc sulfate. Each 220 mg of zinc sulfate contains 50 mg of elemental zinc. Given 01/28/2022 8:31 AM CDT 220 mg Given 01/27/2022 8:15 AM CDT 220 mg documented in this encounter Active and Recently Administered Medications Times are shown in CDT. Scheduled Medication Order 01/27/2022 01/28/2022 01/29/2022 albumin human 25 % injection 25 g (COMPLETED) 1342 (Ne w Bag - Provider: Paz Velasquez RSumaNSuma) 25 g, intravenous, Once, On Wed01/27/22 at 1230, For 1 dose, If no infusion rate specified: Administer the 25% solution at 100 mL/hr cholecalciferol (vitamin D3) tablet 25 mcg 0814 (Given - Provider: Marla Kelly RSumaN.) 0831 (Given - Provider: Bere Garcia RSumaN.) 0900 (Giv en - Provider: Stacie Sullivan RSumaNSuma) 25 mcg, oral, Daily, First dose on Wed at 0900, cholecalciferol (vitamin D3) orderable was interchanged for cholecalciferol (vitamin D3) tablet/capsule ciprofloxacin tablet 500 mg (CIPRO) 0624 (Given - Prov ider: Payam Sandoval RSumaNSuma) 0641 (Given - Provider: Humera Sifuentes RSumaNSuma) 0620 (Given - Provider: Gi Fitzpatrick RSumaNSuma) 500 mg, oral, Daily before breakfast, Fi rst dose on Wed01/23/22 at 0700, Take 2 hours before or 6 hours after antacids containing magnesium or aluminum, sucralfate, didanosine, polymeric phosphate binde rs, or products containing calcium, iron , or zinc., Drug Monitoring Program: Pharmacist to adjust medication dosing based on indication and drug clearance factors., Indications: Prophylaxis, medical, SBP prophylaxis copper 4,000 mcg in NaCl 0.9% IVPB (COMPLETED) 1638 (N ew Bag - Provider: Katina Contreras RGabby) 4,000 mcg (4 mg), intravenous, at 128 mL /hr, Administer over 4 Hours, Once, On Wed01/27/22 at 1530, For 1 dose, Do not exceed infusion rate of 1 mg/hr. diclofenac sodium 1 % gel 2 g (VOLTAREN) 0821 (Not Giv en - Provider: Marla Kelly RSumaNSuma - Reason: Other)1349 (Not Given - Provider: Juliana Larson RSumaNSuma - Reason: Patient/family refused)1730 (Not Given - Provider: Katina Contreras RSumaNSuma - Reason: Patient/family refused) 0832 (Given - Provider: Vanessa Rudolph)1200 (Given - Provider: Bere Garcia R.N.)1653 (Not Given - Provider: Bere Garcia R.N. - Reason: Patient/family refused) 0904 (Given - Provider: Stacie Sullivan R.N.)1200 (Due) 2 g, topical, 4 times daily, First dose on Wed01/21/22 at 0800, Do not exceed 32 g per day, over all affected joints. Use dosing card to measure product. 2 g = 2.25 inches, 4 gm = 4.5 inches. Rinse dosi 2312 (Given - Provider: Rochelle Locke RSumaNSuma) 2112 (Not Given - Provider: Gi rodney RSumaNSuma - Reason: Patient/family refused) ng card after use and save for each administration. folic acid tablet 1 mg 0814 (Given - Provider: Marla davila RSumaNSuma) 0831 (Given - Provider: Bere Garcia R.N.) 0900 (Given - Provider: Stacie Sullivan R.N.) 1 mg, oral, Daily, First dose on Wed01/21/22 at 0900 furosemide tablet 20 mg (LASIX) 0832 (Given - Pr ovider: Bere Garcia R.N.) 0900 (Given - Provider: Stacie Sullivan R.N.) 20 mg, oral, Daily, First dose (after last modificatio n) on Wed01/28/22 at 0900 HYDROmorphone tablet 1 mg (DILAUDID) (COMPLETED) 0247 (Given - Provider: Humera Sifuentes RSumaNSuma) 1 mg, oral, Once, On Wed01/28/22 at 0245, For 1 dose lactulose solution 20 g (CHRONULAC) 0814 (Given - Prov ider: Marla Kelly R.N.)1349 (Not Given - Provider: Juliana Larson R.N. - Reason: Patient/family refused)1650 (Given - Provider: Katina Contreras R.N.)210 (Given - Provider: Elizabeth Ying.A.NSuma, R.NSuma) 0831 (Given - Provider: Bere Garcia R.N.)1157 (Given - Provider: Bere Garcia R.N.)1650 (Given - Provider: Bere Garcia R.N.)211 (Given - Provider: Gi Fitzpatrick R.N.) 0859 (Given - Provider: Stacie Sullivan R.N.)1200 (Due) 20 g, oral, 4 times daily, First dose (a fter last modification) on Wed01/26/22 at 1700 lidocaine 5 % 1 patch (LIDODERM) 0813 (Medication Appl ied - Provider: Marla Kelly R.N.)2104 (Medication Removed - Provider: Vahe Jones M.A.NSuma, R.N.) 1655 (Medication Applied - Provider: Alan Garcia R.N. - Comment: pt request to delay) 0455 (Medication Removed - Provider: Tanner Fitzpatrick RGabby)0859 (Medication Applied - Provider: Stacie Sullivan R.N.)1201 (Due: Medication Removed - Provider: Discharge Provider, Automatic - Comment: Time automatically 1 patch, transdermal, Administer over 12 Hours, Daily, First dose on Wed01/21/22 at 0900, Remove after 12 hours. adjuste d from order being discontinued) magnesium oxide tablet 400 mg (MAG-OX) 0624 (Given - P rovider: Payam Sandoval RSumaNSuma)1648 (Given - Provider: Katina Contreras R.N.) 0641 (Given - Provider: Andrew RutherfordNSuma)1650 (Given - Provider: Bere Garcia R.N.) 0912 (Given - Provider: Stacie Sullivan R.N.) 400 mg, oral, 2 times daily before break fast and dinner, First dose on Wed01/21/[address] tablet 40 mg (PROTONIX) 0624 (Given - Provider: Payam Sandoval R.N.) 0641 (Given - Provider: Humera Sifuentes R.N.) 0620 (Given - Provider: Gi Fitzpatrick R.N.) 40 mg, oral, Daily before breakfast, Fir st dose on Wed01/21/22 at 0700, Swallow whole. Do NOT crush, chew, or split tablet. rifAXIMin tablet 550 mg (XIFAXAN) 0814 (Given - Provid er: Marla Kelly R.N.)2100 (Given - Provider: Chano Ying, R.NSuma) 08 (Given - Provider: Bere Garcia R.N.)2110 (Given - Provider: Gi Fitzpatrick R.N.) 899 (Given - Provider: Stacie Sullivan R.N.) 550 mg, oral, 2 times daily, First dose on Wed01/21/22 at 0900, For 324 days, Indications: Prophylaxis, medical sodium chloride 0.9 % injection 3 mL 0828 (Not Given - Provider: Marla Kelly R.N. - Reason: Other)2103 (Not Given - Provider: Chano Ying, R.NSuma - Reason: Other - Comment: IV infusing) 1000 (Given - Provider: Bere Garcia R.N.)2113 (Given - Provider: Gi Fitzpatrick R.N.) 903 (Not Given - Provider: Stacie Sullivan R.N. - Reason: Loss of IV access) 3 mL, intravenous, Every 12 hours schedu led, First dose on Wed01/21/22 at 0900, Peripheral Intravenous Catheter and Rapid Infusion Catheter, when no infusion to maintain patency spironolactone tablet 50 mg (ALDACTONE) 0832 (Given - Provider: Bere Garcia R.N.) 09 (Given - Provider: Stacie Sullivan R.N.) 50 mg, oral, Daily, First dose (after last modificatio n) on Wed01/28/22 at 0900 thiamine tablet 100 mg (VITAMIN B1) 0815 (Given - Prov ider: Marla Kelly R.N.) 0831 (Given - Provider: Bere Garcia R.N.) 09 (Giv en - Provider: Stacie Sullivan R.N.) 100 mg, oral, Daily, First dose on Wed01/21/22 at 0900 traZODone tablet 50 mg (DESYREL) 2100 (Given - Provide r: Chano Ying, R.N.) 2111 (Given - Provider: Gi Fitzpatrick R.N.) 50 mg, oral, Daily at bedtime, First dose on Wed01/21/22 at 2100 vitamin A capsule 3,000 mcg 0832 (Given - Provid er: Bere Garcia R.N.) 3,000 mcg, oral, 3 times weekly (Once pe day on Wed), First dose on Wed01/21/22 at 0900, For 109 days, Vitamin A (retinol): Units x 0.3 = mcg; 10,000 Units = 3,000 mcg Vitamin A (Supplemental B eta-carotene): Units x 0.3 = mcg Vitamin A (Dietary Beta-carotene): Units x 0.05 = mcg zinc sulfate capsule 220 mg (ZINCATE) 08 (Given - Pr ovider: Marla Kelly R.N.) 08 (Given - Provider: Bere Garcia R.N.) 09 (Giv en - Provider: Stacie Sullivan R.N.) 220 mg, oral, Daily with breakfast, Firs t dose on Wed01/21/22 at 0800, Doses listed in zinc sulfate. Each 220 mg of zinc sulfate contains 50 mg of elemental zinc. PRN Medication Order 01/27/2022 01/28/2022 01/29/2022 cyclobenzaprine tablet 5 mg (FLEXERIL) 114 (Given - P rovider: Paz Velasquez R.N.)2101 (Given - Provider: Chano Ying, R.N.) 0150 (Given - Provider: Humera Sifuentes RSumaNSuma) 5 mg, oral, Daily PRN, muscle spasms, Starting on Wed01/21/22 at 0605 fentaNYL injection 25 mcg (SUBLIMAZE) (CANCELED) 0453 (Given - Provider: Payam Sandoval RGabby) 25 mcg, intravenous, Every 2 min PRN, mo derate pain or score 4-6 of 10, severe pain or score 7-10 of 10, Starting on Wed01/26/22 at 1657, PACU (only), Up to maximum total dose of 200 mcg HYDROmorphone tablet 1 mg (DILAUDID) (CANCELED) 0030 ( Given - Provider: Payam Sandoval R.N.)0814 (Given - Provider: Marla Kelly RSumaNSuma) 1 mg, oral, Every 6 hours PRN, moderate pain or score 4-6 of 10, severe pain or score 7-10 of 10, Starting on Wed01/25/22 at 1332, For severe pain, only after trying lidocaine, heat, conservative management HYDROmorphone tablet 1 mg (DILAUDID) (CANCELED) 1622 ( Given - Provider: Katina Contreras RSumaNSuma) 1200 (Given - Provider: Bere Garcia R.NSuma) 1 mg, oral, Every 24 hours PRN, moderate pain or score 4-6 of 10, severe pain or score 7-10 of 10, Starting on Wed01/27/22 at 1330, For severe pain, only after trying lidocaine, heat, conservative management HYDROmorphone tablet 1 mg (DILAUDID) (CANCELED) 1650 (Given - Provider: Bere Garcia R.N.)2111 (Given - Provider: Gi Fitzpatrick RSumaNSuma) 0537 (Given - Provider: Andrew CliftonNSuma)0856 (Given - Provider: Stacie Sullivan RSumaNSuma) 1 mg, oral, Every 4 hours PRN, moderate pain or score 4-6 of 10, severe pain or score 7-10 of 10, Starting on Wed01/28/22 at 1330, For severe pain, only after trying lidocaine, heat, conservative management lidocaine 10 mg/mL (1 %) injection (XYLOCAINE) (COMPLE CLAYTON) 1012 (Given - Provider: Migue Talavera M.D.) Code/trauma/sedation medication, Starting on Wed01/27/22 at 1012 menthol lozenge 1 lozenge 1341 (Given - Provider: Paz burciaga R.N.) 1 lozenge, oral, As needed, sore throat, Starting on Wed01/27/22 at 0800 naloxone injection 0.2 mg (NARCAN) 0.2 mg, intravenous, As needed, respirat ory depression, Starting on Wed01/21/22 at 0624, For RASS Score -4 or less, respiratory rate of less than 8 breaths/min. Notify provider/service and rapid response team (if available at institution). prochlorperazine tablet 10 mg (COMPAZINE) 10 mg, oral, 3 times daily PRN, nausea, Starting on Wed01/21/22 at 0605 sodium chloride 0.9 % injection 10 mL 10 mL, intravenous, As needed, line care , Starting on Wed01/21/22 at 0605, Peripheral Intravenous Catheter and Rapid Infusion Catheter, prior to blood sampling, post blood transfusion or post blood sampling sodium chloride 0.9 % injection 3 mL 3 mL, intravenous, As needed, line care, Starting on Wed01/21/22 at 0605, Prior to and following infusion and between multiple consecutive infusions: sodium chloride 0.9 % injection documented in this encounter Additional Health Concerns Assessment Noted Time PHQ-9 Depression Total Score: 10 10/06/2021 5:00 PM CD T documented as of this encounter Care Teams Bale Sewer Relationship Specialty Start Date End Date Ana Red P.A.-C. PCP - General Internal Medicine 12/01/[address] [place] [address] [place] [phone] [facility] [place] lab 08/25/21 Ervin Schroeder MD Referring Provider Family Medicine 03/24/[address] [place] [address] [place] [address] documented as of this encounter
--- OUTSIDE RECORDS SUMMARY | 2022-01-31 04:22 | XMS_ITS | Encounter Summary ---
:1990 Author Organization [facility] Address [address] [place] [address] Care Team Providers Name Role Phone Ana Red P.A.-C. Primary Care Provider [phone] Encounter Details Date Type Department Care Team Description 01/16/2022 Clinical Communication Division of [facility] in Lilian Schaefer [place], [place] [address] [place] [address] [address] [place] [phone] Social History Tobacco Use Types Packs/Day Years [...] do you attend confucianist or Never 2021 muslim services? Do you belong to any clubs or No 07/17/2021 organizations such as confucianist groups, unions, [employer] or athletic groups, or school groups? 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 [facility]5 [place] [address] Telemedicine Transplant 2 Lab Laboratory Medicine Karin, 2 Adeline Gannon M.D., Ph.D. [address] [place] [phone] Lab Laboratory Medicine Karin, 2 Adeline Gannon M.D., Ph.D. [address] [place] [phone] Office Visit Transplant Karin, 2 Adeline Gannon M.D., Ph.D. [address] [place] [phone] Appointment Radiology Matthew Jerome 2 Tyrell Rodriguez M.D. [facility]5 [place] [address] Appointment Gastroenterology and Adrianne, 2 Hepatology Yue Burciaga M.D. [address] [place] [phone] Office Visit Gastroenterology and Matthew Jerome 2 Hepatology Tyrell Rodriguez M.D. [address] [place] [address] Appointment Radiology Matthew Jerome 2 YTyrell M.D. [address] [place] [address] Scheduled Procedures Name Priority Associated Diagnoses Date/Time ESOPHAGOGASTRODUODENOSCOPY Cirrhosis Alc oholic (HCC) 02/10/2022 8:45 AM CDT Hypertension Portal (HCC) documented as of this encounter Visit Diagnoses Not on filedocumented in this encounter Additional Health Concerns Assessment Noted Time PHQ-9 Depression Total Score: 10/06/2021 5:00 PM CD T documented as of this encounter Care Teams Concrete Floor Installer Relationship Specialty Start Date End Date Ana Red P.A.-C. PCP - General Internal Medicine 12/01/[address] [place] [phone] [facility] [place] lab 08/25/21 Ervin Schroeder MD Referring Provider Family Medicine 03/24/[address] [place] [id number] documented as of this encounter
--- OUTSIDE RECORDS SUMMARY | 2022-01-31 04:22 | XMS_ITS | Encounter Summary ---
:1990 Author Organization [facility] Address [address] [place] [address] Care Team Providers Name Role Phone Ana Red P.A.-C. Primary Care Provider [phone] Reason for Visit Reason Comments Appointment January follow up Encounter Details Date Type Department Care Team Description 01/14/2022 Clinical Camron [facility] for Adeline Gannon (January laci Wilson, Ph.D. up) Clinical Regeneration [address] [facility] in [facility] [phone] [address] [facility] [phone] [place], [place] (Work) [phone] Social History Tobacco Use Types Packs/Day Years [...] do you attend holiness or Never 2021 restorationism services? Do you belong to any clubs [...] or the highest technical, or vocational [facility] degree you have received? 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 documented in this encounter Plan of Treatment Upcoming Encounters Date Type Specialty Care Team Description Office Visit Community Internal [facility], 2 Medicine Vernell Perez [address] [place] [phone] Appointment Radiology Matthew Jerome 2 YTyrell, Lilian [address] [place] [phone] Hospital Gastroenterology and Queenie Matthew 2 Encounter Hepatology Tyrell Rodriguez M.D. [address] [place] [phone] Surgery Gastroenterology and Queenie, Matthew ESOPHAG OGASTRODUODENOSCOPY 2 Hepatology Tyrell Rodriguez, Lilian [address] [place] [phone] Telemedicine Transplant 2 Lab Laboratory Medicine Karin, Olinda Gannon M.D., Ph.D. [address] [place] [phone] Lab Laboratory Medicine Karin, 2 Adeline Gannon M.D., Ph.D. [address] [place] [phone] Office Visit Transplant Karin, Olinda Gannon M.D., Ph.D. [address] [place] [phone] Appointment Radiology Matthew Jerome 2 YTyrell, Lilian [address] [place] [phone] Appointment Gastroenterology and Adrianne, 2 Hepatology Yue Burciaga M.D. [address] [place] [address] [place] [phone] Office Visit Gastroenterology and Matthew Jerome 2 Hepatology YTyrell M.D. [address] [place] [phone] Appointment Radiology QueenieMatthew 2 Tyrell Rodriguez M.D. [address] [place] [phone] Scheduled Procedures Name Priority Associated Diagnoses Date/Time ESOPHAGOGASTRODUODENOSCOPY Cirrhosis Alc oholic (HCC) 02/10/2022 8:45 AM CDT Hypertension Portal (HCC) documented as of this encounter Visit Diagnoses Not on filedocumented in this encounter Additional Health Concerns Assessment Noted Time PHQ-9 Depression Total Score: 10 10/06/2021 5:00 PM CD T documented as of this encounter Care Teams Folder Machine Adjuster Relationship Specialty Start Date End Date Ana Red P.A.-C. PCP - General Internal Medicine 12/01/[address] [place] [phone] [facility] [place] lab 08/25/21 Ervin Schroeder MD Referring Provider Family Medicine 03/24/[address] [place] [address] documented as of this encounter
--- OUTSIDE RECORDS SUMMARY | 2022-01-31 04:22 | XMS_ITS | Encounter Summary ---
:1990 Author Organization [facility] Address [address] [place] [address] Care Team Providers Name Role Phone Ana Red P.A.-C. Primary Care Provider [phone] Reason for Visit Reason Comments Phone Contact Appointment LABs Encounter Details Date Type Department Care Team Description 01/16/2022 Clinical Ramirez Barajas, Phone Contact; Communication Center for Mitchell Rowland (Jagdeep Izaguirre) Transplantation and Lilian, Ph.D. Clinical [facility] [address] in [facility] [address] [facility] [phone] Social History Tobacco Use Types Packs/Day Years [...] do you attend congregational or Never 2021 hinduism services? 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 OM sent to confirm appts. Telephone Encounter - Andreas Lopez - 01/21/2022 7:22 AM CDT Images from the original note were not included. Dr. Jerome these are the labs I was referring to from 10/27. Thank you Telephone Encounter - Andreas Lopez - 01/20/2022 5:[address] Queenie Henson can you please advise on the labs that were ordered on 10/27 if they are still needing to be completed. Psych: Can you please advise on if the Urines ordered on 10/10 are still needed? Thank you in advance Telephone Encounter - Andreas Lopez - 01/20/2022 5:03 PM CDT Sixto, This is in regards to labs ordered on 10/27 and urines on 10/10. Please advise if those need to be completed still or if they can be cancelled? Thank you in advance Telephone Encounter - Andreas Lopez - 01/16/2022 5:40 PM CDT Carlito Henson needs to reschedule labs. She will be completing some in [place] on 01/20. Could we get orders for [place] for the labs that she needs to complete? PASS: Please link new orders to 01/20 labs and add urine as close as possible. Thank you in advance documented in this encounter Plan of Treatment Upcoming Encounters Date Type Specialty Care Team Description Office Visit Community Internal [facility], 2 Medicine Vernell Perez [address] [facility] [place] [address] Appointment Radiology Matthew Jerome 2 Y, MSumaB.BSumaSSuma, M.D. [address] [place] [phone] Hospital Gastroenterology and Queenie Matthew 2 Encounter Hepatology Joshua RodriguezBSumaBSumaSSuma, Lilian [address] [place] [address] Surgery Gastroenterology and Queenie Matthew ESOPHAG OGASTRODUODENOSCOPY 2 Hepatology Joshua RodriguezBSumaBLilian Bedolla [address] [place] [phone] Telemedicine Transplant 2 Lab Laboratory Medicine Karin, 2 Adeline Gannon M.D., Ph.D. [address] [place] [phone] Lab Laboratory Medicine Karin, 2 Adeline Gannon M.D., Ph.D. [address] [place] [phone] Office Visit Transplant Karin, 2 Adeline Gannon M.D., Ph.D. [address] [place] [phone] Appointment Radiology Matthew Jerome 2 Elizabeth Rodriguez.B.B.SLilian Moise [address] [place] [phone] Appointment Gastroenterology and Adrianne, 2 Hepatology Yue Burciaga M.D. [address] [place] [phone] Office Visit Gastroenterology and Queenie Matthew 2 Hepatology Elizabeth Rodriguez.BLilian Staples [address] [place] [address] Appointment Radiology Matthew Jerome 2 Y, Lilian Santillan [address] [place] [phone] Scheduled Procedures Name Priority Associated Diagnoses Date/Time ESOPHAGOGASTRODUODENOSCOPY Cirrhosis Alc oholic (HCC) 02/10/2022 8:45 AM CDT Hypertension Portal (HCC) documented as of this encounter Visit Diagnoses Not on filedocumented in this encounter Additional Health Concerns Assessment Noted Time PHQ-9 Depression Total Score: 10 10/06/2021 5:00 PM CD T documented as of this encounter Care Teams Chain Maker Hand Relationship Specialty Start Date End Date Ana Red P.A.-C. PCP - General Internal Medicine 12/01/[address] [place] [phone] [facility] 08/25/21 Ervin Schroeder MD Referring Provider Family Medicine 03/24/[address] [place] [phone] documented as of this encounter
--- OUTSIDE RECORDS SUMMARY | 2022-01-31 04:22 | XMS_ITS | Encounter Summary ---
:1990 Author Organization [facility] Address [address] [place] [address] Care Team Providers Name Role Phone Ana Red P.A.-C. Primary Care Provider Reason for Visit Auth/Cert Specialty Diagnoses / Procedures Referred By Contact Refer red To Contact Diagnoses Cirrhosis Alcoholic (HCC) Failure Renal Acute (Acute Kidney Injury) (HCC) Ascites Alcohol Use Unspecified With Unspecified Alcohol Induced Disorder (HCC) Hepatic Failure Unspecified Without Coma (HCC) Procedures ED ADMIT Referral ID Status Reason Start Date Expiration Date Visits Requ ested Visits Authorized [id number] 1 1 Encounter Details Date Type Department Care Team Description 01/23/2022 Anesthesia Event Division of Gastroenterology Allegra Cronin in [facility] pedro Wilkes APRN, CURRICULUM FACILITATOR [address] [place] [address] [address] [place], [place] [phone] [place], [place] [phone] Anesthesia Record Procedure Summary Procedure Name Responsible Anesthesia Start Anesthesia Stop Time Anesthesiologist Time EGD Allegra Cronin APRN, 01/23/22 1529 2 1552 (ESOPHAGEALGASTRODU CURRICULUM FACILITATOR ODENOSCOPY) Events Date Time Event Comment 01/23/2022 1529 An Start Machine/Equipmen t Checked Infection Precautions Foll owed Procedure/Site Verified NPO Sta tus Verified Supine Standard ASA Mon itors Applied 1534 Turnover to Proceduralist 1539 Proc Start 1543 Proc Fin 1546 Turnover to ANE Staff 1547 an stop data 1552 An End I completed my h andoff to the receiving staff during [facility] we 1. Identified the patient 2. Ident ified the responsible provider 3. Revi ewed the pertinent medical history 4. Discu ssed the surgical course 5. Reviewed intra-o p anesthesia management and issues during an esthesia 6. Set expectations for post-procedure period 7. Allowed opportun ity for questions and acknowledgement of understanding. Name Total fentanyl injection 50 mcg/mL 50 mcg lidocaine 2% (mg) injection 60 mg propofol 10 mg/mL injection 30 mg propofol 10 mg/mL infusion 172.8 mg ondansetron PF 4 mg/2 mL injection 4 mg Lactated Ringers Free Drip 200 mL Agents No agents on file. Blood No blood administrations on file. Lines, Drains, and Airways Type Details Placement Removal Puncture 01/13/22; 1507; No; 01/13/22 1507 by Abdomen; Right, Lower, OurConcepción cortezyla R, R.N. Quadrant; paracentesis site; 4x4 gauze and tegaderm Puncture 01/21/22; 1006; Abdomen; 01/21/22 1006 by Right, Upper, Quadrant Evy Dixon S, R.N. Peripheral IV Placement Date: 01/20/22; 01/20/222141 by 01/29 102 by Placement Time: 2141; Yobany Tucker Anna C Catheter Size: 20 G; M, R.N. Orientation: Left; Location: Wrist; Site Prep: Chlorhexidine (Preferred); Technique: Anatomical landmarks; Inserted by: MARIAA Camarnea ; Insertion Attempts: 1; Removal Date: 01/29/22; Removal Time: 1025; Removal Reason: Per protocol Peripheral IV Placement Date: 01/21/22; 01/21/22 08 by 01/27 0900 by Placement Time: 0801; Perri Alan, RSumaNMarla Dietrich, Catheter Size: 22 G; R.N. Orientation: Anterior, Left, Lower; Location: Forearm; Site Prep: Chlorhexidine (Preferred); Technique: Anatomical landmarks; Inserted by: KIRA; Insertion Attempts: 1; Removal Date: 01/27/22; Removal Time: 0900 documented in this encounter Social History Tobacco Use Types Packs/Day Years [...] or relatives? How often do you attend mormonism or Never 2021 sabianism services? Do you belong to any clubs or No 07/17/2021 organizations such as mormonism groups, unions, fraternal or athletic groups, or [...] or the highest technical, or vocational [facility] degree you have received? 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 documented as of this encounter OR Notes Anesthesia Postprocedure Evaluation - Allegra Cronin APRN, CRNA - 01/23/2022 3:52 PM CDT Patient: Catia Carias Procedure Summary Date: 01/23/22 Room / Location: Division of Gastroenterology in [place], [place] Anesthesia Start: 1528 Anesthesia Stop: 1551 Procedure: EGD (ESOPHAGEALGASTRODUODENOSCOPY) Diagnosis: Scheduled Providers: Allegra Cronin APRN, CRNA Responsible Provider: Allegra Cronin APRN, CRNA Anesthesia Type: MAC ASA Status: 3 Anesthesia Type: MAC Last vitals Vitals Value Taken Time BP Temp Pulse Resp SpO2 Please reference Vitals flowsheet for most recent vital signs. Anesthesia Post Evaluation Patient Disposition: dismissal Cardiovascular status: hemodynamics (HR & BP) acceptable Respiratory status: patent airway with spontaneous effort Temperature: normothermic Oxygen requirements: room air Level of consciousness: awake Pain score: pain adequately controlled and/or at baseline Post Op nausea/vomiting: none Hydration status: euvolemic Anesthesia Preprocedure Evaluation - Allegra Cronin APRN, CRNA - 01/23/2022 3:43 PM CDT Preprocedure Anesthesia & H&P Assessment Procedure Summary Anesthesia Start Date/Time: 01/23/221528 Scheduled providers: Allegra Cronin APRN, CRNA Procedure: EGD (ESOPHAGEALGASTRODUODENOSCOPY) Location: Division of Gastroenterology in [place], [place] Pertinent components of the patient's history including current problem list, medical history, surgical history, family history, social history, medications and allergies were reviewed. Present illnessand pre-op diagnosis were confirmed. The planned surgery / procedure was verified with the patient /legal guardian. The patient's general health condition remains unchanged RELEVANT COMORBID CONDITIONS CV (+) Long QT Syndrome (+) Patent Foramen Ovale (HCC) RESP (+) Acute Respiratory Failure (HCC) RENAL/REPRO (+) Failure Renal Acute (Acute Kidney Injury) (HCC) NEURO (+) Hepatic Encephalopathy Without Coma (HCC) GENETICS (+) Hepatic Encephalopathy Without Coma (HCC) GI (+) Gastroesophageal Reflux Disease Without Esophagitis (+) Hepatic Failure Unspecified Without Coma (HCC) (+) Hypertension Portal (HCC) HEME (+) Anemia (+) Deficiency Coagulation Acquired (HCC) (+) Thrombocytopenia (HCC) Other (+) Alcohol Use Unspecified With Unspecified Alcohol Induced Disorder (HCC) (+) Cannabis Mild Use Disorder (Abuse) Uncomplicated (+) Cirrhosis Alcoholic (HCC) (+) Nicotine Dependence Cigarettes OBJECTIVE PHYSICAL EXAMINATION Airway (HEENT) Mallampati: III TM Distance: >3 FB Neck ROM: Full Mouth Opening: >3 cm Cardiovascular Rhythm: Regular Cardiovascular Assessment: cardiovascular normal Functional Capacity: <4 METS Pulmonary Pulmonary Assessment: Clear General / Constitutional Constitutional Assessment: Normal General State of Health:: calm and ill appearing Neurological Neurologic Assessment:??alert and alert and oriented x 3 Dental Dental Assessment: dentition in poor repair ASSESSMENT / PLAN ANESTHESIA PLAN ASA: 3 Anesthesia Plan: MAC Patient seen and allergies reviewed, anesthesia plan and risks discussed directly with patient /legal guardian or through an court interpreter. Risks/Benefits/Alternatives of Blood transfusion discussed with patient / legal guardian, including an opportunity to ask questions and/or decline some or all transfusion therapies. The patient / legalguardian consented to the use of all blood products, as deemed medically necessary Approval to Proceed: approved for anesthesia documented in this encounter Plan of Treatment Upcoming Encounters Date Type Specialty Care Team Description Office Visit [facility] Internal [facility], 2 Medicine Vernell Perez [address] [place] [address] Appointment Radiology Matthew Jerome 2 YTyrell, Lilian [address] [place] [phone] [facility] Gastroenterology and Mousa, Matthew 2 Encounter Hepatology Tyrell Rodriguez M.D. [address] [place] [phone] Surgery Gastroenterology and Mousa, Matthew ESOPHAG OGASTRODUODENOSCOPY 2 Hepatology Tyrell Rodriguez M.D. [address] [place] [phone] Telemedicine Transplant 2 Lab Laboratory Medicine Karin, 2 Adeline Gannon M.D., Ph.D. [address] [place] [phone] Lab Laboratory Medicine Karin, 2 Adeline Gannon M.D., Ph.D. [address] [place] [phone] Office Visit Transplant Karin, 2 Adeline Gannon M.D., Ph.D. [address] [place] [phone] [facility]ment [facility] Matthew 2 Tyrell Rodriguez M.D. [address] [place] [phone] Appointment Gastroenterology and Adrianne, 2 Hepatology Yue Burciaga M.D. [address] [place] [phone] Office Visit Gastroenterology and [facility], Matthew 2 Hepatology Tyrell Rodriguez M.D. [address] [place] [phone] Appointment Radiology Queenie Matthew Prakash YTyrell, Lilian [address] [place] [phone] Scheduled Procedures Name Priority Associated Diagnoses Date/Time ESOPHAGOGASTRODUODENOSCOPY Cirrhosis Alc oholic (HCC) 02/10/2022 8:45 AM CDT Hypertension Portal (HCC) documented as of this encounter Visit Diagnoses Not on filedocumented in this encounter Administered Medications Inactive Administered Medications - up to 3 most recent administrations Medication Order MAR Action Action Date Dose Rate Site fentaNYL injection (SUBLIMAZE) Given 01/23/2022 3:34 PM CDT 50 mcg intravenous, As needed, Starting on Wed01/23/22 at 1534, Anesthesia Intra-op lactated ringers New Bag 01/23/2022 3:34 PM CDT intravenous, Continuous Infusion: Per Instructions PRN, Starting on Wed01/23/22 at 1534, Anesthesia Intra-op lidocaine (PF) (cardiac) injection Given 01/23/2022 3:34 PM CDT 60 mg intravenous, As needed, Starting on Wed01/23/22 at 1534, Anesthesia Intra-op ondansetron (PF) injection (ZOFRAN) Given 01/23/2022 3:34 PM CDT 4 mg intravenous, As needed, Starting on Wed01/23/22 at 1534, Anesthesia Intra-op propofol 10 mg/mL infusion New Bag 01/23/2022 3:34 150 mcg/kg/min 57.6 mL/hr (DIPRIVAN) PM CDT intravenous, Continuous Infusion: Per Instructions PRN, Starting on Wed01/23/22 at 1534, Anesthesia Intra-op propofoL injection (DIPRIVAN) Given 01/23/2022 3:34 PM CDT 30 mg intravenous, As needed, Starting on Wed01/23/22 at 1534, Anesthesia Intra-op documented in this encounter Additional Health Concerns Assessment Noted Time PHQ-9 Depression Total Score: 10 10/06/2021 5:00 PM CD T documented as of this encounter Care Teams Costing Manager Relationship Specialty Start Date End Date Ana Red P.A.-C. PCP - General Internal Medicine 12/01/[address] [place] [address] [place] [phone] [facility]- [facility] 08/25/21 Ervin Schroeder MD Referring Provider Family Medicine 03/24/[address] [place] [address] [place] [address] documented as of this encounter
--- OUTSIDE RECORDS SUMMARY | 2022-01-31 04:22 | XMS_ITS | Encounter Summary ---
:1990 Author Organization [facility] Address [address] [place] [address] Care Team Providers Name Role Phone Ana Red P.A.-C. Primary Care Provider Reason for Visit Reason Comments Post Hospital Follow-up Encounter Details Date Type Department Care Team Description 01/15/2022 Clinical Communication Department of [facility] Internal Ciara Johnson, RSumaNSuma Follow-up Medicine in [address] [place] [phone] [address] [facility] [phone] [place], [place] (Work) [phone] Social History Tobacco Use [...] do you attend scientology or Never 2021 zoroastrian services? Do you belong to any clubs or No 07/17/2021 organizations such as scientology groups, unions, fraMaison Academia or athletic groups, or school groups? 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 Information/Education: not applicable The following references were used: provider Ana Red Telephone Encounter - Sera Eller R.N. - 01/15/2022 9:38 AM CDT SUBJECTIVE REASON FOR CALL Post-Hospital follow-up phone call with patient. Admission Date: 01/09/22 Discharge Date: 01/14/22 Discharge Diagnosis: Hepatic Encephalopathy without coma General Health Notes today that she is feeling better since discharged from the hospital. Concerns/questions: Patient is doing okay, but has a few questions/concerns. She is wondering about flexeril and if she can take more often than 1 time daily. She is wondering if she is able to take Aleve for back pain, she took Tylenol this AM. She was wondering about PT for her back pain, she will talk with her home health nurse today at noon about if they have PT through their company, if so she will ask her to start the process for this, and will let us know what is needed for orders. Symptom Review No new symptoms since discharge from the hospital. Activities of Daily Living Patient has difficulties with mobility, but her boyfriend and family help her with things and home health assists also. Has the patient had a fall since discharge: no. Has ambulation changed since hospitalization: no. Difficulty ambulating: yes, using cane and walker . The patient lives with significant other. Patient identified if needing assistance, she could depend on significant other, , , brother, and sister. Wounds/Incisions/Lines, Drains and Airways None Medication Status Current medication list was reviewed and updated as needed. Reports medication is managed by the Home Health nurse. Medications concerns: yes, questions for Ana regarding Flexeril and Aleve . Medication compliance for current medications: yes. High Risk Medications Antibiotics: Name: Cipro. Labs scheduled: yes. Taking as instructed: no, because has not received Rx yet. Experiencing side effects: n/a. Home Services Utilized The patient is receiving home health services, including a visiting nurse and looking into PT. Equipment/Supplies for Home Use Home equipment/supplies were received: yes.. Type of equipment/supplies: cane and walker. Verbalizes how to use equipment/supplies: yes. Concerns related to equipment/supplies: no. Assessment/Plan Follow-up Appointment PCP Follow-up appointment scheduled: yes; scheduled on 01/20/22. The patient plans to go to the appointment and has no concerns about getting there. Specialty Follow-up scheduled with Transplant and GI . Recommendations Referral actions: none needed at this time. Additional recommendations: provider notified. Disposition/Recommendation: notified provider and awaiting recommendations. Education: patient/caller able to teach back. Caller agreeable to plan of care: yes. Telephone Encounter - Ciara Donato R.N. - 01/15/2022 8:01 AM CDT Catia Carias is not eligible for the Adult Medical Care Coordination Program and needs the [facility] call to be completed. Patient was dismissed from the hospital on 01/14/22 at 1748. documented in this encounter Plan of Treatment Upcoming Encounters Date Type Specialty Care Team Description Office Visit Community Internal [facility] [place], 2 Medicine Vernell Perez [address] [place] [phone] Appointment Radiology [facility], Matthew 2 YKishore.BGraeme, Lilian [address] [place] [phone] Hospital Gastroenterology and [place], Matthew 2 Encounter Hepatology Tyrell Rodriguez M.D. [address] [place] [phone] Surgery Gastroenterology and D[place], Matthew ESOPHAG OGASTRODUODENOSCOPY 2 Hepatology Vik RodriguezBLilian Bedolla [address] [place] [phone] Telemedicine Transplant 2 Lab Laboratory Medicine Karin, 2 Adeline Gannon M.D., Ph.D. [address] [place] [phone] Lab Laboratory Medicine Olinda Frazier M.D., Ph.D. [address] [place] [phone] Office Visit Transplant Olinda Frazier M.D., Ph.D. [address] [place] [phone] Appointment Radiology Matthew Jerome 2 YTyrell, Lilian [address] [place] [phone] Appointment Gastroenterology and Olinda Silver Hepatology Yue Burciaga M.D. [address] [place] [phone] Office Visit Gastroenterology and Matthew Jerome 2 Hepatology Vik RodriguezBLilian Bedolla [address] [place] [phone] Appointment Radiology Matthew Jerome 2 YJoshuaBSumaBLilian Bedolla [address] [place] [phone] Scheduled Procedures Name Priority Associated Diagnoses Date/Time ESOPHAGOGASTRODUODENOSCOPY Cirrhosis Alc oholic (HCC) 02/10/2022 8:45 AM CDT Hypertension Portal (HCC) documented as of this encounter Visit Diagnoses Not on filedocumented in this encounter Additional Health Concerns Assessment Noted Time PHQ-9 Depression Total Score: 10/06/2021 5:00 PM CD T documented as of this encounter Care Teams Control Systems Designer Relationship Specialty Start Date End Date Ana Red P.A.-C. PCP - General Internal Medicine 12/01/[address] [place], [place] [address] [phone] [facility] 08/25/21 Ervin Schroeder MD Referring Provider Family Medicine 03/24/[address] [place] [address] [place] [address] documented as of this encounter
--- OUTSIDE RECORDS SUMMARY | 2022-01-31 04:22 | XMS_ITS | Encounter Summary ---
:1990 Author Organization [facility] Address [address] [place] [address] Care Team Providers Name Role Phone Ana Red P.A.-C. Primary Care Provider [phone] Encounter Details Date Type Department Care Team Description 01/17/2022 Clinical Communication Division of Mike, Gastroenterology in Lilian Mueller, [place], [place] Ph.D. [address] [facility] [address] [place] [phone] [place], [place] [phone] Social History Tobacco Use Types Packs/Day Years [...] do you attend hindu or Never 2021 hoahaoism services? 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 - 01/17/2022 6:56 PM CDT Paged by finish saw operator regarding nose bleed for the last hour. It is not a constant flow, but anytime sheputs the tissue paper in and takes it out there was still what blood on it. She is out in the community with her partner at the time, and otherwise feels well. She is just anxious about this nose bleedbecause is been going on for at least the last 16 minutes. Advised patient to present to an urgent care or emergency department for in person evaluation. In the meantime, also advise that she go get a cold compress or an ice pack to help to staunch the flow. Patient verbalized understanding. documented in this encounter Plan of Treatment Upcoming Encounters Date Type Specialty Care Team Description Office Visit Community Internal [place], 2 Medicine Vernell Perez [address] [place] [phone] Appointment Radiology [facility] 2 YTyrell M.D. [address] [place] [phone] Hospital Gastroenterology and [facility] 2 Encounter Hepatology Tyrell Rodriguez M.D. [address] [place] [phone] Surgery Gastroenterology and [facility] ESOPHAG OGASTRODUODENOSCOPY 2 Hepatology Vik RodriguezBLilian Bedolla [address] [place] [phone] Telemedicine Transplant 2 Lab Laboratory Medicine Olinda Frazier M.D., Ph.D. [address] [place] [phone] Lab Laboratory Medicine Olinda Frazier M.D., Ph.D. [address] [place] [phone] Office Visit Transplant Olinda Frazier M.D., Ph.D. [address] [place] [phone] Appointment Radiology Matthew Jerome 2 YJoshuaBSumaBLilian Bedolla [address] [place] [phone] Appointment Gastroenterology and Adrianne 2 Hepatology Yue Burciaga M.D. [address] [place] [address] Office Visit Gastroenterology and Matthew Jerome 2 Hepatology Joshua RodriguezBSumaBLilian Bedolla [address] [place] [phone] Appointment Radiology Matthew Jerome 2 YJoshuaB.B.Lilian Stockton [address] [place] [phone] Scheduled Procedures Name Priority Associated Diagnoses Date/Time ESOPHAGOGASTRODUODENOSCOPY Cirrhosis Alc oholic (HCC) 02/10/2022 8:45 AM CDT Hypertension Portal (HCC) documented as of this encounter Visit Diagnoses Not on filedocumented in this encounter Additional Health Concerns Assessment Noted Time PHQ-9 Depression Total Score: 10 10/06/2021 5:00 PM CD T documented as of this encounter Care Teams Corrugated Sheet Material Sheeter Relationship Specialty Start Date End Date Ana Red P.A.-C. PCP - General Internal Medicine 12/01/[address] [place] [address] [phone] [facility] [place] lab 08/25/21 Ervin Schroeder MD Referring Provider Family Medicine 03/24/[address] [place] [phone] documented as of this encounter
--- OUTSIDE RECORDS SUMMARY | 2022-01-31 04:22 | XMS_ITS | Encounter Summary ---
:1990 Author Organization [facility] Address [address] [place] [address] Care Team Providers Name Role Phone Ana Red P.A.-C. Primary Care Provider [phone] Encounter Details Date Type Department Care Team Description 01/19/2022 Orders Only Ramirez [facility] Vernon French, for Transplantation and [place], RSumaNSuma, Clinical Regeneration in [facility] . [place], [place] [address] [place] [phone] Social History Tobacco Use Types Packs/Day [...] do you attend jainism or Never 2021 alevism services? 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 10[address] [place] [address] Surgery Gastroenterology and Matthew Jerome ESOPHAG OGASTRODUODENOSCOPY 2 Hepatology Tyrell Rodriguez M.D. [facility] [place] [address] Telemedicine Transplant 2 Lab Laboratory Medicine Karin, 2 Adeline Gannon M.D., Ph.D. [address] [place] [address] [phone] Lab Laboratory Medicine Karin, 2 Adeline Gannon M.D., Ph.D. [address] [place] [address] [phone] Office Visit Transplant Karin, 2 Adeline Gannon M.D., Ph.D. [address] [place] [phone] Appointment Radiology Matthew Jerome 2 Tyrell Rodriguez M.D. [address] [place] [phone] Appointment Gastroenterology and Adrianne, 2 Hepatology Yue Burciaga M.D. [address] [place] [phone] Office Visit Gastroenterology and Matthew Jerome 2 Hepatology Tyrell Rodriguez M.D. [facility] [place] [address] Appointment Radiology Matthew Jerome 2 YTyrell M.D. [facility] [place] [address] Scheduled Procedures Name Priority Associated Diagnoses Date/Time ESOPHAGOGASTRODUODENOSCOPY Cirrhosis Alc oholic (HCC) 02/10/2022 8:45 AM CDT Hypertension Portal (HCC) documented as of this encounter Visit Diagnoses Not on filedocumented in this encounter Additional Health Concerns Assessment Noted Time PHQ-9 Depression Total Score: 10/06/2021 5:00 PM CD T documented as of this encounter Care Teams Regional Economic Liaison Relationship Specialty Start Date End Date Ana Red P.A.-C. PCP - General Internal Medicine 12/01/[address] [place] [phone] [facility] [place] lab 08/25/21 Ervin Schroeder MD Referring Provider Family Medicine 03/24/[address] [place] [address] documented as of this encounter
--- OUTSIDE RECORDS SUMMARY | 2022-01-31 04:22 | XMS_ITS | Encounter Summary ---
:1990 Author Organization [facility] Address [address] [place] [address] Care Team Providers Name Role Phone Ana Red P.A.-C. Primary Care Provider [phone] Encounter Details Date Type Department Care Team Description 01/20/2022 Clinical Communication Department of Felicita Spicer Gastroenterology in [place], L[facility]P.N. [place], [place] [phone] 1025 [facility] [place] [phone] Social History Tobacco Use Types Packs/Day [...] do you attend jew or Never 2021 congregational services? Do you belong to any clubs or No 07/17/2021 organizations such as jew groups, unions, fraBlueRoads or athletic groups, or school groups? 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 - 01/20/2022 4:09 PM CDT Aids Nurse called patient and discussed the recommendation to report to the ED for management of acute kidney injury. Patient was also advised to hold her diuretics per direction from Dr. Jerome in separatemessage (see below). Patient verbalized understanding of the information provided and states she will report to [facility] ED as this is slightly closer for her. [4:01 PM] Matthew Jerome M.B.B.SSuma, M.D. can you please call Christelle Carias and have her come to the ER for Acute kidney injury [4:01 PM] Matthew Jerome M.B.B.SSuma, M.D. she needs albumin, and needs to hold her diuretics as well Telephone Encounter - Felicita Spicer L.P.N. - 01/20/2022 4:08 PM CDT ----- Message from Tyrell Zheng M.D. sent at 01/20/2022 3:58 PM CDT ----- Regarding: acute kidney injury Dear team Can you please call the patient and let her know that she needs to come to the ER for management of acute kidney injury. She needs in albumin infusion FRANCESCA. Thanks OM documented in this encounter Plan of Treatment Upcoming Encounters Date Type Specialty Care Team Description Office Visit [facility], 2 Medicine Vernell Perez [address] [place] [phone] Appointment Radiology Matthew Jerome 2 Tyrell Rodriguez M.D. [address] [place] [phone] Hospital Gastroenterology and Matthew Jerome 2 Encounter Hepatology Tyrell Rodriguez M.D. [address] [place] [phone] Surgery Gastroenterology and Matthew Jerome ESOPHAG OGASTRODUODENOSCOPY 2 Hepatology Tyrell Rodriguez M.D. [address] [place] [phone] Telemedicine Transplant 2 Lab Laboratory Medicine Olinda Frazier M.D., Ph.D. [address] [place] [phone] Lab Laboratory Medicine Olinda Frazier M.D., Ph.D. [address] [place] [phone] Office Visit Transplant Olinda Frazier M.D., Ph.D. [address] [place] [phone] Appointment Radiology Matthew Jerome 2 YElizabeth.B.B.SSuma, Lilian [address] [place] [phone] Appointment Gastroenterology and Adrianne, 2 Hepatology Yue Burciaga M.D. [address] [place] [phone] Office Visit Gastroenterology and Matthew Jerome 2 Hepatology Jennifer M.B.B.SSuma, Lilian [address] [place] [phone] Appointment Radiology Matthew Jerome 2 Y M.B.B.SSuma, Lilian [address] [place] [phone] Scheduled Procedures Name Priority Associated Diagnoses Date/Time ESOPHAGOGASTRODUODENOSCOPY Cirrhosis Alc oholic (HCC) 02/10/2022 8:45 AM CDT Hypertension Portal (HCC) documented as of this encounter Visit Diagnoses Not on filedocumented in this encounter Additional Health Concerns Assessment Noted Time PHQ-9 Depression Total Score: 10 10/06/2021 5:00 PM CD T documented as of this encounter Care Teams Early Intervention Specialist Relationship Specialty Start Date End Date Ana Red P.A.-C. PCP - General Internal Medicine 12/01/[address] [place], [place] [address] [phone] [facility] [place] lab 08/25/21 Ervin Schroeder MD Referring Provider Family Medicine 03/24/[address] [place] [phone] documented as of this encounter
--- OUTSIDE RECORDS SUMMARY | 2022-01-31 04:22 | XMS_ITS | Encounter Summary ---
:1990 Author Organization [facility] Address [address] [place] [address] Care Team Providers Name Role Phone Ana Red P.A.-C. Primary Care Provider [phone] Encounter Details Date Type Department Care Team Description 01/19/2022 Orders Only Department of [facility] Ana Red , Internal Medicine in P.ASuma-Lowell [place], [place] 300 [facility] 300 [facility] [place] [phone] (Wo rk) Social History Tobacco Use Types [...] do you attend zoroastrianism or Never 2021 restoration services? Do you belong to any clubs or No 07/17/2021 organizations such as zoroastrianism groups, unions, fraHERMEL DELOR or athletic groups, or school groups? 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 [address] [place] [phone] Telemedicine Transplant 2 Lab Laboratory Medicine Karin, 2 Adeline Gannon M.D., Ph.D. [address] [place] [phone] Lab Laboratory Medicine Karin, 2 Adeline Gannon M.D., Ph.D. [address] [place] [address] [phone] Office Visit Transplant Karin, 2 Adeline Gannon M.D., Ph.D. [address] [place] [phone] Appointment Radiology Matthew Jerome 2 Joshua RodriguezBSumaBLilian Bedolla [address] [place] [phone] Appointment Gastroenterology and Adrianne, 2 Hepatology Yue Burciaga M.D. [address] [place] [phone] Office Visit Gastroenterology and Queenie Matthew 2 Hepatology Joshua RodriguezBSumaBLilian Bedolla [address] [place] [phone] Appointment Radiology Matthew Jerome 2 YTyrell M.D. [address] [place] [phone] Scheduled Procedures Name Priority Associated Diagnoses Date/Time ESOPHAGOGASTRODUODENOSCOPY Cirrhosis Alc oholic (HCC) 02/10/2022 8:45 AM CDT Hypertension Portal (HCC) documented as of this encounter Visit Diagnoses Not on filedocumented in this encounter Additional Health Concerns Assessment Noted Time PHQ-9 Depression Total Score: 10/06/2021 5:00 PM CD T documented as of this encounter Care Teams Education Counselor Relationship Specialty Start Date End Date Ana Red P.A.-C. PCP - General Internal Medicine 12/01/[address] [place] [phone] [facility] [place] lab 08/25/21 Ervin Schroeder MD Referring Provider Family Medicine 03/24/[address] [place] [phone] documented as of this encounter
--- OUTSIDE RECORDS SUMMARY | 2022-01-31 04:22 | XMS_ITS | Encounter Summary ---
:1990 Author Organization [facility] Address [address] [place] [address] Care Team Providers Name Role Phone Ana Red P.A.-C. Primary Care Provider [phone] Encounter Details Date Type Department Care Team Description 01/20/2022 Orders Only Pharmacy Prior Auth Lina Raphael [phone] Social History Tobacco Use Types Packs/Day Years [...] do you attend congregational or Never 2021 islam services? Do you belong to any clubs or No 07/17/2021 organizations such as congregational groups, unions, fraNewsWhip or athletic groups, or school groups? How [...] or the highest technical, or vocational p [facility] degree you have received? 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 encounter Plan of Treatment Upcoming Encounters Date Type Specialty Care Team Description Office Visit Community Internal [facility], 2 Medicine Vernell Perez 300 [place] [phone] Appointment Radiology Matthew Jerome 2 Tyrell Rodriguez, MJules [address] [place] [address] Hospital Gastroenterology and Matthew Jerome 2 Encounter Hepatology Tyrell Rodriguez, MJules 1025 [place] [phone] Surgery Gastroenterology and Luischantell, Matthew ESOPHAG OGASTRODUODENOSCOPY 2 Hepatology oJshua RodriguezBSumaBLilian Bedolla [address] [place] [phone] Telemedicine Transplant 2 Lab Laboratory Medicine Karin, 2 Adeline Gannon M.D., Ph.D. [address] [place] [address] [phone] Lab Laboratory Medicine Karin, 2 Adeline Gannon M.D., Ph.D. [address] [place] [phone] Office Visit Transplant Karin, 2 Adeline Gannon M.D., Ph.D. [address] [place] [address] [phone] Appointment Radiology Matthew Jerome 2 YElizabeth.B.B.SSuma, Lilian [address] [place] [phone] Appointment Gastroenterology and Adrianne, 2 Hepatology Yue Burciaga M.D. [address] [place] [address] [phone] Office Visit Gastroenterology and Matthew Jerome 2 Hepatology Joshua RodriguezB.B.SLilian Moise [address] [place] [address] [phone] Appointment Radiology Matthew Jerome 2 Y M.B.B.SLilian Moise [address] [place] [phone] Scheduled Procedures Name Priority Associated Diagnoses Date/Time ESOPHAGOGASTRODUODENOSCOPY Cirrhosis Alc oholic (HCC) 02/10/2022 8:45 AM CDT Hypertension Portal (HCC) documented as of this encounter Visit Diagnoses Not on filedocumented in this encounter Additional Health Concerns Assessment Noted Time PHQ-9 Depression Total Score: 10 10/06/2021 5:00 PM CD T documented as of this encounter Care Teams Computerized Machine Fabric Cutter Relationship Specialty Start Date End Date Ana Red P.A.-C. PCP - General Internal Medicine 12/01/[address] [place] [phone] [facility]- [place] lab 08/25/21 Ervin Schroeder MD Referring Provider Family Medicine 03/24/[address] [place] [phone] documented as of this encounter
--- OUTSIDE RECORDS SUMMARY | 2022-01-31 04:22 | XMS_ITS | Encounter Summary ---
:1990 Author Organization [facility] Address [address] [place] [address] Care Team Providers Name Role Phone Ana Red P.A.-C. 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 How often do you attend orthodox or Never 2021 bahai services? Do you belong to any clubs or No 07/17/2021 organizations such as orthodox groups, unions, fraSpare to Share or athletic groups, or school groups? 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 Pt oked confirming by OM. Telephone Encounter - Parris Del Rio - 01/15/2022 1:46 PM CDT Pre- Patient returning a call to schedule her appts. She can be reached at [phone]. documented in this encounter Plan of Treatment Upcoming Encounters Date Type Specialty Care Team Description Office Visit Community Internal [place], 2 Medicine Vernell Perez 300 [facility] [place] [place] [phone] Appointment Radiology Matthew Jerome 2 Y, M.BSumaBGraeme, Lilian [address] [place] [phone] Hospital Gastroenterology and Azchantell Matthew 2 Encounter Hepatology YJoshuaBSumaBLilian Bedolla [address] [place] [phone] Surgery G[facility] Matthew ESOPHAG OGASTRODUODENOSCOPY 2 Hepatology Y M.B.BSumaSSuma, Lilian [address] [place] [phone] Telemedicine Transplant 2 Lab Laboratory Medicine Karin, Olinda Gannon M.D., Ph.D. [address] [place] [place] [phone] Lab Laboratory Medicine Karin, Olinda Gannon M.D., Ph.D. [address] [place] [place] [address] [phone] Office Visit Transplant Karin, Olinda Gannon M.D., Ph.D. [address] [place] [place] [address] [phone] Appointment Radiology Matthew Jerome 2 Y, M.B.B.SSuma, Lilian [address] [place] [phone] Appointment Gastroenterology and Adrianne, 2 Hepatology Yue Burciaga M.D. [address] [place] [address] Office Visit Gastroenterology and Matthew Jerome 2 Hepatology Tyrell Rodriguez M.D. 1025 [place] [phone] Appointment Radiology LuisMatthew abdul 2 YTyrell M.D. [address] [place] [address] [phone] Scheduled Procedures Name Priority Associated Diagnoses Date/Time ESOPHAGOGASTRODUODENOSCOPY Cirrhosis Alc oholic (HCC) 02/10/2022 8:45 AM CDT Hypertension Portal (HCC) documented as of this encounter Visit Diagnoses Not on filedocumented in this encounter Additional Health Concerns Assessment Noted Time PHQ-9 Depression Total Score: 10 10/06/2021 5:00 PM CD T documented as of this encounter Care Teams Study Coordinator Relationship Specialty Start Date End Date Ana Red P.A.-C. PCP - General Internal Medicine 12/01/[address] [place] [address] [phone] [facility] [place] lab 08/25/21 Ervin Schroeder MD Referring Provider Family Medicine 03/24/[address] [place] [phone] documented as of this encounter
--- OUTSIDE RECORDS SUMMARY | 2022-01-31 04:22 | XMS_ITS | Encounter Summary ---
:1990 Author Organization [facility] Address [address] [place] [address] Care Team Providers Name Role Phone Ana Red P.A.-C. Primary Care Provider [phone] Encounter Details Date Type Department Care Team Description 01/23/2022 Ancillary Procedure Department of Gastroenterology Social History [...] do you attend gnosticist or Never 2021 scientologist services? 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 [address] [place] [phone] Hospital Gastroenterology and Matthew Jerome 2 Encounter Hepatology Tyrell Rodriguez M.D. [address] [place] [phone] Surgery Gastroenterology and Matthew Jerome ESOPHAG OGASTRODUODENOSCOPY 2 Hepatology Vik RodriguezB.SLilian Moise [facility] [place] [phone] Telemedicine Transplant 2 Lab Laboratory Medicine Karin, 2 Adeline Gannon M.D., Ph.D. [address] [place] [phone] Lab Laboratory Medicine Karin, 2 Adeline Gannon M.D., Ph.D. [address] [place] [address] [phone] Office Visit Transplant Karin, Olinda Gannon M.D., Ph.D. [address] [place] [phone] Appointment Radiology Matthew Jerome 2 YElizabeth.B.B.SSuma, Lilian [address] [place] [phone] Appointment GastroenterMorenita 2 Hepatology Yue Burciaga M.D. [address] [place] [phone] Office Visit Gastroenterology and Matthew Jerome 2 Hepatology Elizabeth Rodriguez.B.B.SLilian Moise [address] [place] [phone] Appointment Radiology Matthew Jerome 2 Y M.B.B.SLilian Moise [address] [place] [phone] Scheduled Procedures Name Priority Associated Diagnoses Date/Time ESOPHAGOGASTRODUODENOSCOPY Cirrhosis Alc oholic (HCC) 02/10/2022 8:45 AM CDT Hypertension Portal (HCC) documented as of this encounter Procedures Procedure Name Priority Date/Time Associated Comments Diagnosis GASTROENTEROLOGY IMAGE Routine 01/23/2022 3:35 Re sults for this EXAM PM CDT procedure are i n the results section. documented in this encounter Results Upper GI endoscopy-Gastroenterology Image Exam (01/23/2022 3:35 PM CDT) Specimen (Source) Anatomical Collection Method Collection Time Re ceived Time Location / / Volume Laterality 01/23/2022 3:35 PM CDT Narrative IIMS - 01/23/2022 4:18 PM CDT This order has been created [...] documented as of this encounter Care Teams Glove Cuffer Relationship Specialty Start Date End Date Ana Red P.A.-C. PCP - General Internal Medicine 12/01/[address] [place] [phone] [facility] [place] lab 08/25/21 Ervin Schroeder MD Referring Provider Family Medicine 03/24/[address] [place] [phone] documented as of this encounter
--- OUTSIDE RECORDS SUMMARY | 2022-01-31 04:22 | XMS_ITS | Encounter Summary ---
:1990 Author Organization [facility] Address [address] [place] [address] Care Team Providers Name Role Phone Ana Red P.A.-C. Primary Care Provider [phone] Encounter Details Date Type Department Care Team Description 01/20/2022 Hospital Encounter Department of Digna Campbelli c Failure Laboratory Medicine Lilian Schaefer Unspecified Without in [place], [address] [place] [address] Coma (HCC) [place], [place] [address] [facility] [facility] [phone] [place] [phone] (Work) [phone] Social History Tobacco Use Types Packs/Day Years [...] or relatives? How often do you attend hinduism or Never 2021 latter day services? Do you belong to any clubs or No 07/17/2021 organizations such as hinduism groups, unions, fraAxcient or athletic groups, or school groups? 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 acetaminophen (TYLENOL) Take 1 tablet (500 60 tablet 3 01/0101/27/2022 500 mg tablet mg total) by mouth every 6 (six) hours as needed for mild pain or score 1-3 of 10 or moderate pain or score 4-6 of 10. ciprofloxacin (CIPRO) Take 1 tablet (500 60 tablet 2 202101/29/2022 500 mg tablet mg total) by mouth every morning before breakfast. cyclobenzaprine Take 1 tablet (5 mg 15 tablet 0 01/20/2022 01/30/2022 (FLEXERIL) 5 mg tablet total) by mouth daily as needed for muscle spasms. folic acid 1 mg tablet Take 1 mg by mouth 0 01/30/2022 daily. furosemide (LASIX) 20 mg Take 2 tablets (40 180 tablet 3 01/202201/28/2022 tabletIndications: mg total) by mouth Cirrhosis Alcoholic daily. (HCC), Hypertension Portal (HCC), Thrombocytopenia (HCC), Abnormal Liver Function Test, Ascites Chronic furosemide (LASIX) 20 mg Take 1 tablet (20 mg 90 tablet 3 0 01/28/2022 01/29/2022 tabletIndications: total) by mouth Thrombocytopenia (HCC), daily. Ascites Chronic, Cirrhosis Alcoholic (HCC), Hypertension Portal (HCC), Abnormal Liver Function Test lactulose (CHRONULAC) 10 Take 15 mL (10 g 1350 mL 11 12/1001/27/2022 gram/15 mL total) by mouth 3 solutionIndications: (three) times a day. Cirrhosis Alcoholic Titrate to 3 soft (HCC), Hypertension bowel movements Portal (HCC), daily Thrombocytopenia (HCC), Abnormal Liver Function Test, Hepatic Encephalopathy Without Coma (HCC) lactulose (CHRONULAC) 20 Take 30 mL (20 g 08297 mL 3 01/2701/29/2022 gram/30 mL solution total) by mouth 4 (four) times a day. lactulose (CHRONULAC) 20 Take 30 mL (20 g 8100 mL 3 09/29 /2022 01/29/2022 gram/30 mL solution total) by mouth 3 (three) times a day. lidocaine (LIDODERM) 5 % Place 1 patch on the 10 patch 0 0 01/19/2022 01/27/2022 skin daily. Apply to painful area 12 hours per day, remove for 12 hours. prochlorperazine Take 1 tablet (10 mg 20 tablet 0 2 01/29/2022 (COMPAZINE) 10 mg tablet total) by mouth 3 (three) times a day as needed for nausea. spironolactone Take 2 tablets (100 60 tablet 2 01/20/2022 0 01/28/2022 (ALDACTONE) 50 mg tablet mg total) by mouth daily. spironolactone Take 1 tablet (50 mg 60 tablet 2 01/28/2022 01/29/2022 (ALDACTONE) 50 mg tablet total) by mouth daily. documented as of this encounter Plan of Treatment Upcoming Encounters Date Type Specialty Care Team Description Office Visit [facility], 2 Medicine Vernell Perez [address] [place] [phone] Appointment Radiology [facility] 2 Y, M.B.B.SSuma, Lilian [address] [place] [phone] Hospital Gastroenterology and [facility] 2 Encounter Hepatology Joshua RodriguezB.B.Lilian [place] [address] [place] [phone] Surgery Gastroenterology and [facility] [place] ESOPHAG OGASTRODUODENOSCOPY 2 Hepatology Elizabeth Rodriguez.B.B.Kath, Lilian [address] [place] [phone] Telemedicine Transplant 2 Lab Laboratory Medicine Karin, 2 Adeline Gannon M.D., Ph.D. [address] [place] [phone] Lab Laboratory Medicine Olinda Frazier M.D., Ph.D. [address] [place] [phone] Office Visit Transplant Olinda Frazier M.D., Ph.D. [address] [place] [phone] Appointment Radiology Matthew Jerome 2 YTyrell M.D. [address] [place] [phone] Appointment Gastroenterology and Olinda Silver Hepatology Yue Burciaga M.D. [address] [place] [phone] Office Visit Gastroenterology and Matthew Jerome 2 Hepatology Tyrell Rodriguez M.D. [address] [place] [phone] Appointment Radiology Matthew Jerome 2 YTyrell M.D. [address] [place] [phone] Scheduled Procedures Name Priority Associated Diagnoses Date/Time ESOPHAGOGASTRODUODENOSCOPY Cirrhosis Alc oholic (HCC) 02/10/2022 8:45 AM CDT Hypertension Portal (HCC) documented as of this encounter Procedures Procedure Name Priority Date/Time Associated Comments Diagnosis CBC WITH DIFFERENTIAL, Routine 01/20/2022 12:07 Hepatic Failur e Results for this B PM CDT Unspecified Without procedur e are in Coma (HCC) the results section. COMPREHENSIVE Routine 01/20/2022 12:07 Hepatic Failure Results for this METABOLIC PANEL, S/P PM CDT Unspecified Without procedure are in Coma (HCC) the results section. documented in this encounter Results (ABNORMAL) CBC with Differential, Blood (01/20/2022 12:07 PM CDT) [facility] Method Time Signature Hemoglobin 7.4 (L) 11.6 - 01/20/2022 FB60 15.0 g/dL 12:33 PM CDT Hematocrit 22.2 (L) 35.5 - 01/20/2022 FB60 44.9 % 12:33 PM CDT Erythrocytes 2.04 (L) 3.92 - 01/20/2022 FB60 5.13 12:33 PM CDT x10(12)/L MCV 108.8 (H) 78.2 - 01/20/2022 FB60 97.9 fL 12:33 PM CDT RBC Distrib Width 21.8 (H) 12.2 - 01/20/2022 FB60 16.1 % 12:33 PM CDT Platelet Count 56 (L) 157 - 371 01/20/2022 FB60 x10(9)/L 12:33 PM CDT Leukocytes 5.4 3.4 - 9.6 01/20/2022 FB60 x10(9)/L 12:33 PM CDT Neutrophils 3.96 1.56 - 01/20/2022 FB60 6.45 12:33 PM CDT x10(9)/L Lymphocytes 0.80 (L) 0.95 - 01/20/2022 FB60 3.07 12:33 PM CDT x10(9)/L Monocytes 0.57 0.26 - 01/20/2022 FB60 0.81 12:33 PM CDT x10(9)/L Eosinophils 0.06 0.03 - 01/20/2022 FB60 0.48 12:33 PM CDT x10(9)/L Basophils <0.04 0.01 - 01/20/2022 FB60 0.08 12:33 PM CDT x10(9)/L Specimen Anatomical Collection Method Collection Time Receive d Time (Source) Location / / Volume Laterality Blood (Blood, 01/20/2022 12:07 01/20/2022 Venous) PM CDT 12:07 PM CDT Digna Campbell M.D. LAB BLOOD ADD-ON Performing Organization Address City/State/ZIP Code Phon e Number [facility] [address] [place] [address] [facility] [place] [address] System in [place] [address] (ABNORMAL) Comprehensive Metabolic Panel (01/20/2022 12:07 PM CDT) Analysis Performed At Patho logist Time Signature Potassium, P 5.3 (H) 3.6 - 5.2 01/20/2022 [facility] mmol/L 1:41 PM CDT Sodium, P 135 135 - 145 01/20/2022 [facility] mmol/L 1:41 PM CDT Chloride, P 101 98 - 107 01/20/2022 [facility] mmol/L 1:41 PM CDT Bicarbonate, P 22 22 - 29 01/20/2022 [facility] mmol/L 1:41 PM CDT Anion Gap, P 12 7 - 15 01/20/2022 [facility] 1:41 PM CDT BUN (Blood Urea 37 (H) 6 - 21 01/20/2022 [facility] Nitrogen), P mg/dL 1:41 PM CDT Creatinine 1.31 (H) 0.59 - 01/20/2022 [facility] 1.04 mg/dL 1:41 PM CDT Estimated GFR 56 (L) >=60 01/20/2022 [facility] (eGFR) mL/min/BSA 1:41 PM CDT Comment: Estimated GFR calculated using the 2020 CKD_EPI creatinine equation. Calcium, Total, P 9.2 8.6 - 10.0 mg/dL 01/20/2022 1:41 PM CDT [facility] Glucose, P 112 70 - 140 mg/dL 01/20/2022 1:41 PM CDT O PETAR Protein, Total, P 5.4 (L) 6.3 - 7.9 g/dL 01/20/2022 1:41 P M CDT [facility] Albumin, P 4.0 3.5 - 5.0 g/dL 01/20/2022 1:41 PM CDT O PETAR Aspartate Aminotransferase 70 (H) 8 - 43 U/L 01/20/2022 1 :41 PM CDT [facility] (AST), P Alkaline Phosphatase, P 334 (H) 35 - 104 U/L 01/20/2022 1: 41 PM CDT [facility] Alanine Aminotransferase 26 7 - 45 U/L 01/20/2022 1:4 1 PM CDT [facility] (ALT), P Bilirubin, Total, P 10.5 (H) <=1.2 mg/dL 01/20/2022 1:41 PM CDT [facility] Specimen Anatomical Collection Method Collection Time Receive d Time (Source) Location / / Volume Laterality Blood (Blood, 01/20/2022 12:07 01/20/2022 1:16 Venous) PM CDT PM CDT Digna Campbell M.D. LAB BLOOD ADD-ON Performing Organization Address City/State/ZIP Code Phon e Number [facility] [address] [place] [address] [place] [address] System in [place] [address] [facility] documented in this encounter Visit Diagnoses Diagnosis Cirrhosis Alcoholic (HCC) Hypertension Portal (HCC) Hepatic Failure Unspecified Without Coma (HCC) Cirrhosis Alcoholic (HCC) Hypertension Portal (HCC) documented in this encounter Additional Health Concerns Assessment Noted Time PHQ-9 Depression Total Score: 10 10/06/2021 5:00 PM CD T documented as of this encounter Care Teams Paleontological Helper Relationship Specialty Start Date End Date Ana Red P.A.-C. PCP - General Internal Medicine 12/01/[address] [place] [address] [place] [phone] [facility] [place] lab 08/25/21 Ervin Schroeder MD Referring Provider Family Medicine 03/24/211979 [address] [place] [address] [place] [address] documented as of this encounter
--- OUTSIDE RECORDS SUMMARY | 2022-01-31 04:22 | XMS_ITS | Encounter Summary ---
:1990 Author Organization [facility] Address [address] [place] [address] Care Team Providers Name Role Phone Ana [...] Expiration Date Visits Requ ested Visits Authorized [id number] 1 1 Encounter Details Date Type Department Care Team Description 01/26/2022 Anesthesia Event Division of Gildardo Hickey APRN, SHANNON, DNAP [address] [place] [phone] Gastroenterology in [place] APRN, HAND WOOD SANDER, DNAP [address] [place] [phone] [place], [place] [address] [place] [phone] Anesthesia Record Procedure Summary Procedure Name Responsible Anesthesia Start Anesthesia Stop Time Anesthesiologist Time EGD Gildardo Hickey, EXECUTIVE KITCHEN MANAGER, 01/26/22 1538 01/26/22 1645 (ESOPHAGEALGASTRODU HAND WOOD SANDER, DNAP ODENOSCOPY) Events Date Time Event Comment 01/26/2022 1538 An Start Machine/Equipmen t Checked Infection Precautions Foll owed Procedure/Site Verified NPO Sta tus Verified Supine Standard ASA Mon itors Applied 1543 An Induction 1551 An Intubation 1600 Turnover to Proceduralist 1606 Proc Start 1620 Proc Fin 1622 Turnover to ANE Staff 1635 Airway Removal Criteria Met 1635 Extubation/Airway Removed 1636 an stop data 1645 An End I completed my h andoff to the receiving staff during [facility] we 1. Identified the patient 2. Ident ified the responsible provider 3. Revi ewed the pertinent medical history 4. Discussed the surgical course 5. Review ed intra-op anesthesia management and i ssues during anesthesia 6. Set expectati ons for post-procedure period 7. Allowe d opportunity for questions and ac knowledgement of understanding. Name Total midazolam 1 mg/mL injection 2 mg fentanyl injection 50 mcg/mL 100 mcg lidocaine 2% (mg) injection 100 mg propofol 10 mg/mL 210 mg propofol 10 mg/mL infusion 324.8 mg succinylcholine 20 mg/mL injection 100 mg ondansetron 4 mg/2 mL injection 4 mg Lactated Ringers Free Drip 300 mL Agents No agents on file. Blood No blood administrations on file. Lines, Drains, and Airways Type Details Placement Removal Puncture 01/13/22; 1507; No; 01/13/22 1507 by Abdomen; Right, Lower, OurPerri cortez R, R.N. Quadrant; paracentesis site; 4x4 gauze and tegaderm Puncture 01/21/22; 1006; Abdomen; 01/21/22 1006 by Right, Upper, Quadrant Evy Dixon S, R.N. Peripheral IV Placement Date: 01/20/22; 01/20/222141 by 01/29 1025 by Placement Time: 2141; Yobany Tucker Anna C Catheter Size: 20 G; M, R.N. Orientation: Left; Location: Wrist; Site Prep: Chlorhexidine (Preferred); Technique: Anatomical landmarks; Inserted by: MARIAA Camarena ; Insertion Attempts: 1; Removal Date: 01/29/22; Removal Time: 1025; Removal Reason: Per protocol Peripheral IV Placement Date: 01/21/22; 01/21/22 0801 by 01/27 0900 by Placement Time: 0801; Perri Alan, RSumaNMarla Dietrich, Catheter Size: 22 G; R.N. Orientation: Anterior, Left, Lower; Location: Forearm; Site Prep: Chlorhexidine (Preferred); Technique: Anatomical landmarks; Inserted by: KIRA; Insertion Attempts: 1; Removal Date: 01/27/22; Removal Time: 0900 ETT Placement Date: 01/26/22; 01/26/22 1551 by 01/26 1635 by Placement Time: 1551 Gildardo Hickey, St nelson Hickey, (created via procedure EXECUTIVE KITCHEN MANAGER, HAND WOOD SANDER, DNAP EXECUTIVE KITCHEN MANAGER, CR NA, DNAP documentation); Mask Ventilation: Not attempted; Type: Standard ETT; Single Lumen Tube Size: 7 mm; Cuffed: Yes; Location: Oral; Grade View: Grade 1; Insertion Attempts: 1; Placement Verification: Bilateral breath sounds, Positive ETCO2, Symmetrical chest wall movement; Removal Date: 01/26/22; Removal Time: 1635 Peripheral IV Placement Date: 01/26/22; 01/26/22 1559 by 01/29 1030 by Placement Time: 1559; Gildardo Hickey [place] el, Anna C Catheter Size: 18 G; EXECUTIVE KITCHEN MANAGER, HAND WOOD SANDER, DNAP Orientation: Right; Location: Wrist; Inserted by: sb; Removal Date: 01/29/22; Removal Time: 1030; Removal Reason: Per protocol documented in this encounter Social History Tobacco [...] do you attend gnosticism or Never 2021 pentecostalism services? Do you [...] highest technical, or vocational p [facility] [employer] [facility] degree you have received? 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 documented as of this encounter OR Notes Anesthesia Postprocedure Evaluation - Gildardo Hickey APRN, CRNA DNAShanita - 01/26/2022 4:45 PM CDT Patient: Catia Carias Procedure Summary Date: 01/26/22 Room / Location: Division of Gastroenterology in [place], [place] Anesthesia Start: 8 Anesthesia Stop: 1644 Procedure: EGD (ESOPHAGEALGASTRODUODENOSCOPY) Diagnosis: Scheduled Providers: Gildardo Hickey APRN, CRNA, GABRIELP Responsible Provider: Gildardo Hickey APRN, CRNA, DNAP Anesthesia Type: general ASA Status: 3 Anesthesia Type: general Last vitals Vitals Value Taken Time BP 136/78 01/26/22 1641 Temp 36.5 ??C 01/26/22 1641 Pulse 98 01/26/22 1644 Resp 19 01/26/22 1644 SpO2 94 % 01/26/22 1644 Vitals shown include unvalidated device data. Please reference Vitals flowsheet for most recent vital signs. Anesthesia Post Evaluation Cardiovascular status: hemodynamics (HR & BP) acceptable Respiratory status: patent airway with spontaneous effort Temperature: normothermic Oxygen requirements: nasal cannula (baseline SpO2 94% on RA) Level of consciousness: awake Pain score: pain adequately controlled and/or at baseline Post Op nausea/vomiting: none Hydration status: euvolemic Anesthesia Preprocedure Evaluation - Gildardo Hickey APRN, CRNA, DNAP - 01/26/2022 4:10 PM CDT Preprocedure Anesthesia & H&P Assessment Procedure Summary Anesthesia Start Date/Time: 01/26/221537 Scheduled providers: Gildardo Hickey APRN, CRNA, DNAP Procedure: EGD (ESOPHAGEALGASTRODUODENOSCOPY) Location: Division of Gastroenterology in [place], [place] Pertinent components of the patient's history [...] With Unspecified Alcohol Induced Disorder (HCC) (+) Anxiety (+) Ascites (+) Cannabis Mild Use Disorder (Abuse) Uncomplicated (+) Cirrhosis Alcoholic (HCC) (+) Nicotine Dependence Cigarettes OBJECTIVE PHYSICAL EXAMINATION Airway (HEENT) Mallampati: II TM Distance: >3 FB Neck ROM: Full Mouth Opening: >3 cm Cardiovascular Rhythm: Regular Rate: Normal Cardiovascular Assessment: murmur Functional Capacity: >4 METS Pulmonary Pulmonary Assessment: Clear General / Constitutional General State of Health:: ill appearing jaundiced ASSESSMENT / PLAN ANESTHESIA PLAN ASA: 3 Anesthesia Plan: general Patient seen and allergies reviewed, anesthesia plan and risks discussed directly with patient /legal guardian or through an feed mill tender. Risks/Benefits/Alternatives of Blood transfusion discussed with patient / legal guardian, including an opportunity to ask questions and/or decline some or all transfusion therapies. The patient / legalguardian consented to the use of all blood products, as deemed medically necessary Approval to Proceed: approved for anesthesia Anesthesia Procedure Notes - Gildardo Hickey APRN, CRNA, DNAP - 01/26/2022 4:08 PM CDTAssociated Order(s): Airway Airway Date/Time: 01/26/2022 3:51 PM Performed by: Gildardo Hickey APRN, CRNA, DNAP Authorized by: Gildardo Hickey APRN, CRNA, DNAP Patient location during procedure: OR / Procedure Area PROCEDURE DETAILS: Mask difficulty assessment: not attempted Final airway type: video laryngoscope Laryngeal Manipulation: no Final best view of glottic structures - Cormack/Lehane Score: grade 1 ETT location: oral VL device: glide scope Adult tube size: 7 Adult ETT distance at teeth/gum: 20 Oral tube type: standard ETT Cuffed: yes Number of attempt to successful placement: 1 Airway confirmation: bilateral breath sounds, positive ETCO2 and bilateral chest rise Other previous techniques attempted: none PRE PROCEDURE DETAILS: Pre evaluation for airway management: procedure Urgency: elective Preop assessment of probable difficulty: no difficulty anticipated Preoxygenation: bag valve mask SEDATION / ANESTHESIA Anesthesia method: anesthesia POST PROCEDURE DETAILS: Procedure outcome: successful Airway event: no complications documented in this encounter Plan of Treatment Upcoming Encounters Date Type Specialty Care Team Description Office Visit Community Internal Neda, 2 Medicine Vernell Perez [address] [place] [phone] Appointment Radiology Matthew Jerome 2 Y, MSumaB.B.SSuma, Lilain [address] [place] [phone] Hospital Gastroenterology and Queenie Matthew 2 Encounter Hepatology Y M.B.BLilian Bedolla [address] [place] [phone] Surgery Gastroenterology and Queenie, Matthew ESOPHAG OGASTRODUODENOSCOPY 2 Hepatology Y M.B.B.SSuma, Lilian [address] [place] [phone] Telemedicine Transplant 2 Lab Laboratory Medicine Karin, Olinda Gannon M.D., Ph.D. [address] [place] [phone] Lab Laboratory Medicine Olinda Frazier M.D., Ph.D. [address] [place] [phone] Office Visit Transplant Olinda Frazier M.D., Ph.D. [address] [place] [phone] Appointment Radiology Matthew Jerome 2 Y, M.B.B.SSuma, Lilian [address] [place] [phone] Appointment Gastroenterology and Adrianne, 2 Hepatology Yue Burciaga M.D. [address] [place] [phone] Office Visit Gastroenterology and LuisMatthew abdul 2 Hepatology Tyrell Rodriguez M.D. [address] [place] [phone] Appointment Radiology LuisMatthew abdul 2 Tyrell Rodriguez M.D. [address] [place] [phone] Scheduled Procedures Name Priority Associated Diagnoses Date/Time ESOPHAGOGASTRODUODENOSCOPY Cirrhosis Alc oholic (HCC) 02/10/2022 8:45 AM CDT Hypertension Portal (HCC) documented as of this encounter Procedures Procedure Name Priority Date/Time Associated Comments Diagnosis LDA ANE ENDOTRACHEAL Routine 01/26/2022 3:51 PM R esults for this AIRWAY CDT procedure are i n the results section. documented in this encounter Results LDA ANE ENDOTRACHEAL AIRWAY (01/26/2022 3:51 PM CDT) Narrative Gildardo Hickey APRN HAND WOOD SANDER, DNAP - 3:51 PM CDT Gildardo Hickey APRN, CRNA, DNAP ? 01/26/2022 ??4:08 PM Airway Date/Time: [...] ?? Airway event: no complications Gildardo Hickey EXECUTIVE KITCHEN MANAGER, HAND WOOD SANDER, DNAP ANESTHESIA ORDERABLES documented in this encounter Visit Diagnoses Not on filedocumented in this encounter Administered Medications Inactive Administered Medications - up to 3 most recent administrations Medication Order MAR Action Action Date Dose Rate Site fentaNYL injection (SUBLIMAZE) Given 01/26/2022 3:46 PM CDT 100 mcg intravenous, As needed, Starting on Wed01/26/22 at 1546, Anesthesia Intra-op lactated ringers New Bag 01/26/2022 3:42 PM CDT intravenous, Continuous Infusion: Per Instructions PRN, Starting on Wed01/26/22 at 1542, Anesthesia Intra-op lidocaine (PF) (cardiac) injection Given 01/26/2022 4:03 PM CDT 20 mg intravenous, As needed, Starting on Wed01/26/22 at 1543, Anesthesia Intra-op Given 01/26/2022 3:43 PM CDT 80 mg midazolam (PF) injection (VERSED) Given 01/26/2022 4:03 PM CDT 2 mg intravenous, As needed, Starting on Wed01/26/22 at 1603, Anesthesia Intra-op ondansetron (PF) injection (ZOFRAN) Given 01/26/2022 4:10 PM CDT 4 mg intravenous, As needed, Starting on Wed01/26/22 at 1610, Anesthesia Intra-op propofol 10 mg/mL infusion Rate/Dose 01/26/2022 4:03 175 mcg/kg/min 67.2 mL/hr (DIPRIVAN) Change PM CDT intravenous, Continuous Infusion: Per Instructions PRN, Starting on Wed01/26/22 at 1549, Anesthesia Intra-op New Bag 01/26/2022 3:49 PM CDT 150 mcg/kg/min 57.6 mL/hr propofoL injection (DIPRIVAN) Given 01/26/2022 4:13 PM CDT 40 mg intravenous, As needed, Starting on Wed01/26/22 at 1549, Anesthesia Intra-op Given 01/26/2022 4:03 PM CDT 50 mg Given 01/26/2022 3:49 PM CDT 120 mg succinylcholine (PF) injection (ANECTINE ) Given 01/26/2022 3:49 PM CDT 100 mg intravenous, As needed, Starting on Wed01/26/22 at 1549, Anesthesia Intra-op documented in this encounter Additional Health Concerns Assessment Noted Time PHQ-9 Depression Total Score: 10 10/06/2021 5:00 PM CD T documented as of this encounter Care Teams Merchandising Specialist Relationship Specialty Start Date End Date Ana Red P.A.-C. PCP - General Internal Medicine 12/01/[address] [place] [phone] [facility] [place] [facility] 08/25/21 Ervin Schroeder MD Referring Provider Family Medicine 03/24/[address] [place] [phone] documented as of this encounter
--- OUTSIDE RECORDS SUMMARY | 2022-01-31 04:22 | XMS_ITS | Encounter Summary ---
:1990 Author Organization [facility] Address [address] [place] [address] Care Team Providers Name Role Phone Ana Red P.A.-C. Primary Care Provider [phone] Reason for Referral Physical Therapy (Routine) - Authorized Specialty Diagnoses / Procedures Referred By Contact Refer red To Contact Diagnoses Pain Low Back Unspecified Ana Red P.A.-C. [address] [place] [address] Referral ID Status Reason Start Expiration Visits Visits Date Date Requested Authorized [id number] Authorized Service not 01/20/2022 01/20/2023 1 1 available in [facility] Reason for Visit Reason Comments Hepatic Encephalopathy Post Hospital Follow-up [facility] discharge 2. Unresponsiveness in ER. Patient is requesting refill of Flexeril - patient is waiting recommendation for physical therapy; patient is also wanting an increase Spironolactone 5 0 mg to 100 mg due to leg swelling. Patient also wants to know if she can start a nasal spray. Appointment Request (Routine) - Closed Specialty Diagnoses / Procedures Referred By Contact Refer red To Contact Family Medicine Referral ID Status Reason Start Date Expiration Date Visits Requ ested Visits Authorized [id number] Closed 01/13/2022 01/13/2023 1 1 Encounter Details Date Type Department Care Team Description 01/20/2022 [facility], Pain Low Back Unspecified (Primary Dx); Community Internal Farida Perez Cirrhosis Alcoholic (HCC); Medicine in [place] [address] Ascites; [place], [place] Long QT Syndrome; [facility] [address] [address] Rhinitis Allergic; [place], [place] [phone] Alcohol Use Un specified With Unspecified Alcohol Induced Disorder ([facility]) [address] (Work) [phone] Social History Tobacco Use Types Packs/Day Years [...] do you attend yazidism or Never 2021 hindu services? 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 - 01/20/2022 11:00 AM CDT SUBJECTIVE CHIEF COMPLAINT/REASON FOR VISIT Chief Complaint Patient presents with Hepatic Encephalopathy Post Hospital Follow-up [facility] discharge 01/13/2022. Unresponsiveness in ER. Patient is requesting refill of Flexeril - patient is waiting recommendation for physical therapy; patient is also wanting an increase Spironolactone 50 mg to 100 mg due to leg swelling. Patient also wants to know if she can start a nasal spray. HISTORY OF PRESENT ILLNESS Catia Carias is a pleasant 31 y.o. female with a past medical history of alcoholic cirrhosis(diagnosed 01/2021), portal hypertension, chronic pain syndrome, chronic pancreatitis, anxiety, and depression who presents to the clinic today for post hospital follow-up. She was admitted to [facility] on 01/09/2022 and was discharged on 01/14/2022 with a principal diagnosis of hepatic encephalopathy without coma. Medication changes during her hospital course include starting ciprofloxacin daily for SBP prophylaxis and compazine for nausea. Patient reports she is feeling well overall today. She continues to have back pain and has been unable to get prescription lidocaine patches. She is wondering if we can refill her Flexeril today. She is taking one 5 mg tablet daily and feels this is helpful for her back pain. She has a home health nurse that visits her one time per week and sets up her medications for her. She is scheduled to have a paracentesis at the end of this week for her ascites. She reports she was discharged on 50 mg of spironolactone instead of 100 and she is not sure why this is. She would like to go back up to the 100 mgdose as she feels her legs are very swollen today. The following portions of the patient's history were reviewed and updated as appropriate: allergies,current medications, family history, medical history, social history, surgical history, and problem list. Pertinent positive ROS are listed above in HPI. 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 Use Of Opiate Analgesic Nicotine Dependence Cigarettes Chronic Pain Syndrome Anxiety Hepatic Encephalopathy Without Coma (HCC) ALLERGIES/CONTRAINDICATIONS Allergies Allergen Reactions Gabapentin Other (see comments) Encephalopathy Azithromycin GI intolerance and Nausea And Vomiting Other reaction(s): Nausea/Vomiting Other reaction(s): Other (see comments) Unknown Other reaction(s): Unknown Other reaction(s): GI intolerance CURRENT MEDICATIONS Current Outpatient Medications: acetaminophen (TYLENOL) 500 mg tablet, Take 1 tablet (500 mg total) by mouth every 6 (six) hours asneeded for mild pain or score 1-3 of 10 or moderate pain or score 4-6 of 10., Disp: 60 tablet, Rfl: 3 cholecalciferol 10 mcg (400 Unit) tablet, Take 1 tablet (400 Units total) by mouth daily., Disp: 60tablet, Rfl: 3 ciprofloxacin (CIPRO) 500 mg tablet, Take 1 tablet (500 mg total) by mouth every morning before breakfast., Disp: 60 tablet, Rfl: 2 cyclobenzaprine (FLEXERIL) 5 mg tablet, Take 1 tablet (5 mg total) by mouth daily as needed for muscle spasms., Disp: 15 tablet, Rfl: 0 diclofenac sodium (VOLTAREN) 1 % gel, Apply 2 g topically 4 (four) times a day. Apply to painful area on skin., Disp: 20 g, Rfl: 0 folic acid 1 mg tablet, Take 1 mg by mouth daily., Disp: , Rfl: furosemide (LASIX) 20 mg tablet, Take 2 tablets (40 mg total) by mouth daily., Disp: 180 tablet, Rfl: 3 lactulose (CHRONULAC) 10 gram/15 mL solution, Take 15 mL (10 g total) by mouth 3 (three) times a day. Titrate to 3 soft bowel movements daily, Disp: 1350 mL, Rfl: 11 levonorgestreL (MIRENA) 20 mcg/24 hours (7 yrs) 52 mg IUD, 1 each by intrauterine route continuously., Disp: , Rfl: magnesium oxide (MAG-OX) 400 mg (241.3 mg magnesium) tablet, Take 1 tablet (400 mg total) by mouth 2 (two) times a day before breakfast and dinner., Disp: 60 tablet, Rfl: 1 pantoprazole (PROTONIX) 40 mg EC tablet, Take 1 tablet (40 mg total) by mouth every morning before breakfast., Disp: 30 tablet, Rfl: 1 prochlorperazine (COMPAZINE) 10 mg tablet, Take 1 tablet (10 mg total) by mouth 3 (three) times a day as needed for nausea., Disp: 20 tablet, Rfl: 0 rifAXIMin (XIFAXAN) 550 mg tablet, Take 1 tablet (550 mg total) by mouth 2 (two) times a day., Disp: 180 tablet, Rfl: 3 spironolactone (ALDACTONE) 50 mg tablet, Take 2 tablets (100 mg total) by mouth daily., Disp: 60 tablet, Rfl: 2 thiamine (VITAMIN B1) 100 mg tablet, Take 100 mg by mouth daily., Disp: , Rfl: traZODone (DESYREL) 50 mg tablet, Take 1 tablet (50 mg total) by mouth at bedtime., Disp: 30 tablet, Rfl: 1 vitamin A 3,000 mcg (10,000 Unit) capsule, Take 1 capsule (3,000 mcg total) by mouth 3 (three) times a week for 50 doses. Wednesday, Wednesday, Wednesday, Disp: 50 capsule, Rfl: 0 zinc sulfate (ZINCATE) 220 (50 mg zinc) capsule, Take 220 mg by mouth daily with breakfast., Disp: , Rfl: lidocaine (LIDODERM) 5 %, Place 1 patch on the skin daily. Apply to painful area on back. (Patient not taking: Reported on 01/20/2022), Disp: 15 patch, Rfl: 3 lidocaine (LIDODERM) 5 %, Place 1 patch on the skin daily. Apply to painful area 12 hours per day, remove for 12 hours. (Patient not taking: Reported on 01/20/2022), Disp: 10 patch, Rfl: 0 OBJECTIVE VITAL SIGNS Vitals: 01/20/22 1049 BP: 104/66 Pulse: 93 Resp: 20 Temp: (!) 35.9 ??C PHYSICAL EXAMINATION General: Well-nourished, well-developed 31 y.o. in no apparent distress. Awake, alert, age appropriate. HEENT: Head is normocephalic, atraumatic. Scleral icterus. Cardiovascular: S1 and S2 appreciated. Regular rate and rhythm. Lungs: Clear to auscultation bilaterally with no adventitious sounds Abdomen: Soft, non-tender with no palpable organomegaly. Positive fluid wave. Skin: Warm, pink, and dry. Extremities: +2 pitting edema. Neurologic: Alert and oriented x3. ASSESSMENT / PLAN IMPRESSION/REPORT/PLAN: #1 Cirrhosis Alcoholic (HCC) #2 Ascites #3 Long QT Syndrome Patient recently discharged from [facility] due to hepatic encephalopathy. She feels welltoday with no confusion. Her abdomen is very protuberant due to her ascites. We increased her spironolactone back up to 100 mg daily today. She was discharged on 50 mg of spironolactone from the hospital but I can not find a reason for this and I am wondering if this was in error. She will get labs drawn today as ordered by her hospital provider. She has a paracentesis scheduled for the end of this week. She has a EGD scheduled in [place] for early January to assess for esophageal varices. #4 Pain Low Back Unspecified We put through a physical therapy order to [facility] today for back pain. I did refill flexeril for patient to use once daily. She is also using lidocaine patches [id number] and I did send these in for her via prescription but they are going through a prior authorization process. - External referral PT (non-[place]) #5 Rhinitis Allergic She is wondering if she can use an [id number] nasal spray for allergies. I recommended flonase. Other orders - cyclobenzaprine (FLEXERIL) 5 mg tablet; Take 1 tablet (5 mg total) by mouth daily as needed for muscle spasms., Starting Wed01/20/2022, Normal - spironolactone (ALDACTONE) 50 mg tablet; Take 2 tablets (100 mg total) by mouth daily., Starting Wed01/20/2022, Normal If symptoms worsen or do not improve, patient is instructed to seek further medical attention. All questions have been answered. Patient demonstrated understanding and verbalized agreement with the plan. Her home nurse is Misbah Crook with [facility]. Ana Red P.A.-C. Update: Notified of MOSHE on labs today by hospital provider. Patient has been contacted to report to the ED for albumin infusion and to hold her diuretics. documented in this encounter Plan of Treatment Upcoming Encounters Date Type Specialty Care Team Description Office Visit Community Internal Olinda Red Medicine Vernell Perez [address] [facility] [place] [phone] Appointment Radiology Matthew Jerome 2 Y, Tyrell, M.Jeri [address] [place] [phone] Hospital Gastroenterology and Matthew Jerome 2 Encounter Hepatology Joshua RodriguezB.B.SSuma, Lilian [address] [place] [phone] Surgery Gastroenterology and Archantell Matthew ESOPHAG OGASTRODUODENOSCOPY 2 Hepatology Joshua RodriguezBSumaBGraeme, Lilian [address] [place] [phone] Telemedicine Transplant 2 Lab Laboratory Medicine Karin, 2 Adeline Gannon M.D., Ph.D. [address] [place] [phone] Lab Laboratory Medicine Karin, 2 Adeline Gannon M.D., Ph.D. [address] [place] [address] [phone] Office Visit Transplant Karin, 2 Adeline Gannon M.D., Ph.D. [address] [place] [phone] Appointment Radiology Matthew Jerome 2 Jennifer M.B.B.SSuma, Lilian [address] [place] [phone] Appointment Gastroenterology and Adrianne, 2 Hepatology Yue Burciaga M.D. [address] [place] [phone] Office Visit Gastroenterology and Archantell Matthew 2 Hepatology YTyrell M.D. [address] [place] [phone] Appointment Radiology Matthew Jerome 2 Y, Lilian Santillan [address] [place] [phone] Scheduled Procedures Name Priority Associated Diagnoses Date/Time ESOPHAGOGASTRODUODENOSCOPY Cirrhosis Alc oholic (HCC) 02/10/2022 8:45 AM CDT Hypertension Portal (HCC) documented as of this encounter Visit Diagnoses Diagnosis Cirrhosis Alcoholic (HCC) Hypertension Portal (HCC) Pain Low Back Unspecified - Primary Cirrhosis Alcoholic (HCC) Ascites Long QT Syndrome Rhinitis Allergic Alcohol Use Unspecified With Unspecified Alcohol Induced Disorder (HCC) Cirrhosis Alcoholic (HCC) Hypertension Portal (HCC) documented in this encounter Additional Health Concerns Assessment Noted Time PHQ-9 Depression Total Score: 10 10/06/2021 5:00 PM CD T documented as of this encounter Care Teams Machine Package Sealer Relationship Specialty Start Date End Date Ana Red P.A.-C. PCP - General Internal Medicine 12/01/[address] [place] [phone] [facility] [place] [facility] 08/25/21 Ervin Schroeder MD Referring Provider Family Medicine 03/24/[address] [place] [phone] documented as of this encounter
--- OUTSIDE RECORDS SUMMARY | 2022-01-31 04:22 | XMS_ITS | Encounter Summary ---
:1990 Author Organization [facility] Address [address] [place] [address] Care Team Providers Name Role Phone Ana Red PSumaASuma-CSuma Primary Care Provider Reason for Visit Reason Comments Med Refill Encounter Details Date Type Department Care Team Description 01/20/2022 Refill Department of [facility] Ana Red , Esteban Refill Internal Medicine [place] [address] [facility] [address] [facility] [address] [place] [phone] Social History Tobacco Use Types Packs/Day Years [...] do you attend anabaptist or Never 2021 uatsdin services? Do you belong to any clubs or No 07/17/2021 organizations such as anabaptist groups, unions, [employer] or athletic groups, or school groups? [...] or the highest technical, or vocational [facility] degree you have received? 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 [address] [place] [phone] Hospital Gastroenterology and Mousa, Matthew 2 Encounter Hepatology Tyrell Rodriguez M.D. [address] [place] [phone] Surgery Gastroenterology and Mousa, Matthew ESOPHAG OGASTRODUODENOSCOPY 2 Hepatology Tyrell Rodriguez M.D. [address] [place] [phone] Telemedicine Transplant 2 Lab Laboratory Medicine Karin, 2 Adeline Gannon M.D., Ph.D. [address] [place] [phone] Lab Laboratory Medicine Karin, 2 Adeline Gannon M.D., Ph.D. [address] [place] [phone] Office Visit Transplant Karin, 2 Adeline Gannon M.D., Ph.D. [address] [place] [address] [phone] Appointment Radiology Queenie Matthew 2 Vik RodriguzeBLilian Bedolla [address] [place] [phone] Appointment Gastroenterology and Adrianne, 2 Hepatology Yue Burciaga M.D. [address] [place] [phone] Office Visit Gastroenterology and [place], Matthew 2 Hepatology Tyrell Rodriguez M.D. [address] [place] [phone] Appointment Radiology Matthew Jerome 2 YTyrell, Lilian [facility] [place] [phone] Scheduled Procedures Name Priority Associated Diagnoses Date/Time ESOPHAGOGASTRODUODENOSCOPY Cirrhosis Alc oholic (HCC) 02/10/2022 8:45 AM CDT Hypertension Portal (HCC) documented as of this encounter Visit Diagnoses Not on filedocumented in this encounter Additional Health Concerns Assessment Noted Time PHQ-9 Depression Total Score: 10 10/06/2021 5:00 PM CD T documented as of this encounter Care Teams Aircraft Maintenance Engineer Relationship Specialty Start Date End Date Ana Red P.A.-C. PCP - General Internal Medicine 12/01/[address] [place] [phone] [facility]- [place] lab 08/25/21 Ervin Schroeder MD Referring Provider Family Medicine 03/24/[address] [place] [phone] documented as of this encounter
--- OUTSIDE RECORDS SUMMARY | 2022-01-31 04:22 | XMS_ITS | Encounter Summary ---
:1990 Author Organization [facility] Address [address] [place] [address] Care Team Providers Name Role Phone Ana Red P.A.-C. Primary Care Provider [phone] Encounter Details Date Type Department Care Team Description 01/19/2022 Clinical Communication Department of N[facility] Farida Perez Medicine in [address] [phone] [facility] [place] [phone] (Work) [phone] Social History Tobacco Use Types Packs/Day Years [...] do you attend jain or Never 2021 worship services? Do you belong to any clubs or No 07/17/2021 organizations such as jain groups, unions, fraFlock or athletic groups, or school groups? 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 - 01/19/2022 8:59 AM CDT Detailed message left for patient Telephone Encounter - Nighat Dickson R.N. - 01/19/2022 8:17 AM CDT Patient has appointment with you for 01/20/22 but has experienced increased swelling to lower extremities - uncomfortable and a lot of water retention. Patient inquiring if she could go back up to dosage of 100 mg of diuretic rather than 50 mg. History of dosage: 12/10/21-01/14/22 - Patient had spironolactone 100 mg PO daily 01/14/22 - While in hospital patient was given spironolactone 50 mg PO and furosemide 40 mg PO 01/15/22 - Discharged from hospital on spironolactone 50 mg PO qd Telephone Encounter - Kimberly López - 01/19/2022 8:05 AM CDT MEDICATION QUESTION: What number can I reach you at? [phone] Is it okay to leave a detailed message? yes What is the patient's request? Can she go back up to 100 mg of Lasix? Medication name/dose: furosemide (LASIX) 20 mg tablet Recent changes/new symptoms/side effects: new water retention in legs What pharmacy are you using today? [facility] Additional comments (if any): Last week patient was in [place] and they cut her furosemide (LASIX)20 mg tablet in half to 50 mg. Since then she is having a lot of water retention in her legs and is very uncomfortable. She is wanting to know if she can go back up to the regular RX of which she thinks is 100 mg. She does have an appt with Ana tomorrow but she would like to start this today if itis ok. Please call her back and let her know. Thank you. Routing: - if no new symptoms or side effects, please route to [facility] pool of prescribing provider - if new symptoms or having side effects, please transfer to off-site triage ([phone]) documented in this encounter Plan of Treatment Upcoming Encounters Date Type Specialty Care Team Description Office Visit [facility] Internal [facility], 2 Medicine Vernell Perez [address] [place] [address] [phone] Appointment Radiology Matthew Jerome 2 Y, Tyrell, Lilian [address] [place] [phone] [facility] Gastroenterology and Mousa, Matthew 2 Encounter Hepatology Tyrell Rodriguez M.D. [address] [place] [phone] Surgery Gastroenterology and Mousa, Matthew ESOPHAG OGASTRODUODENOSCOPY 2 Hepatology Tyrell Rodriguez M.D. [address] [place] [phone] Telemedicine Transplant 2 Lab Laboratory Medicine Karin, Olinda Gannon M.D., Ph.D. [address] [place] [address] [phone] Lab Laboratory Medicine Karin, 2 Adeline Gannon M.D., Ph.D. [address] [place] [address] [phone] Office Visit Transplant Karin, Olinda Gannon M.D., Ph.D. [address] [place] [phone] Appointment Radiology LuisNew abdular 2 Y, JoshuaBSumaBGraeme, Lilian [address] [place] [phone] Appointment Gastroenterology and Adiranne, 2 Hepatology Yue Burciaga M.D. [address] [place] [phone] Office Visit Gastroenterology and Matthew Jerome 2 Hepatology YTyrell, Lilian [address] [place] [phone] Appointment Radiology LuisMatthew abdul 2 YTyrell M.D. [address] [place] [phone] Scheduled Procedures Name Priority Associated Diagnoses Date/Time ESOPHAGOGASTRODUODENOSCOPY Cirrhosis Alc oholic (HCC) 02/10/2022 8:45 AM CDT Hypertension Portal (HCC) documented as of this encounter Visit Diagnoses Not on filedocumented in this encounter Additional Health Concerns Assessment Noted Time PHQ-9 Depression Total Score: 10 10/06/2021 5:00 PM CD T documented as of this encounter Care Teams Regional Education Manager Relationship Specialty Start Date End Date Ana Red P.A.-C. PCP - General Internal Medicine 12/01/[address] [place] [phone] [facility]- [place] lab 08/25/21 Ervin Schroeder MD Referring Provider Family Medicine 03/24/[address] [place] [phone] documented as of this encounter
--- OUTSIDE RECORDS SUMMARY | 2022-01-31 04:22 | XMS_ITS | Encounter Summary ---
:1990 Author Organization [facility] Address [address] [place] [address] Care Team Providers Name Role Phone Ana Red P.A.-C. Primary Care Provider Reason for Visit Reason Comments Form Review [facility] med rec onciliation Encounter Details Date Type Department Care Team Description 01/22/2022 Clinical Communication Department of [facility], Form Review [facility] Ana, ([facility] Home Medicine in P.A.-C. Care [facility], [address] reconciliation) [place], [place] [address] [phone] [place] [phone] (Work) [phone] Social History Tobacco Use Types Packs/Day Years [...] do you attend zoroastrianism or Never 2021 mormon services? 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 Telephone Encounter - Marlene Ceron - 01/22/2022 1:21 PM CDT Form was emailed to Ana Red PA-C for electronic review/signature. RETAIL ACCOUNT REPRESENTATIVE: [facility] Health PHONE NUMBER: [phone] INFO REQUESTED: medication reconciliation INSTRUCTIONS: Fax form to [phone] documented in this encounter Plan of Treatment Upcoming Encounters Date Type Specialty Care Team Description Office Visit Community Internal Neda, 2 Solitario Perez P.A.-C. [address] [place] [address] [phone] Appointment Radiology Matthew Jerome 2 YElizabeth.B.B.SSuma, MJules [address] [place] [address] [phone] Hospital Gastroenterology and Queenie Matthew 2 Encounter Hepatology YElizabeth.B.B.SSuma, MJules [address] [place] [phone] Surgery Gastroenterology and Queenie Matthew ESOPHAG OGASTRODUODENOSCOPY 2 Hepatology YElizabeth.B.B.SSuma, MJules [address] [place] [phone] Telemedicine Transplant 2 Lab Laboratory Medicine Olinda Frazier M.D., Ph.D. [address] [place] [phone] Lab Laboratory Medicine Olinda Frazier M.D., Ph.D. [address] [place] [phone] Office Visit Transplant Olinda Frazier M.D., Ph.D. [address] [place] [phone] Appointment Radiology Matthew Jerome 2 YTyrell, Lilian [address] [place] [phone] Appointment Gastroenterology and Adrianne, Olinda Hepatology Yue Burciaga M.D. [address] [place] [address] Office Visit Gastroenterology and Matthew Jeroem 2 Hepatology Joshua RodriguezBSumaBLilian Bedolla [address] [place] [phone] Appointment Radiology Matthew Jerome 2 YJoshuaBSumaBLilian Bedolla [address] [place] [phone] Scheduled Procedures Name Priority Associated Diagnoses Date/Time ESOPHAGOGASTRODUODENOSCOPY Cirrhosis Alc oholic (HCC) 02/10/2022 8:45 AM CDT Hypertension Portal (HCC) documented as of this encounter Visit Diagnoses Not on filedocumented in this encounter Additional Health Concerns Assessment Noted Time PHQ-9 Depression Total Score: 10/06/2021 5:00 PM CD T documented as of this encounter Care Teams Carpet Winder Relationship Specialty Start Date End Date Ana Red P.A.-C. PCP - General Internal Medicine 12/01/[address] [place], [place] [address] [phone] [facility] [place] lab 08/25/21 Ervin Schroeder MD Referring Provider Family Medicine 03/24/[address] [place] [address] [phone] documented as of this encounter
--- OUTSIDE RECORDS SUMMARY | 2022-01-31 04:23 | XMS_ITS | Encounter Summary ---
:1990 Author Organization [facility] Address [address] [place] [address] Care Team Providers Name Role Phone Ana Red P.A.-C. 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 Plan of Treatment Upcoming Encounters Date Type Specialty Care Team Description Office Visit [facility], 2 Medicine Vernell Perez [address] [place] [address] Appointment Radiology Matthew Jerome 2 Tyrell Rodriguez, Lilian [address] [place] [phone] Hospital Gastroenterology and Matthew Jerome 2 Encounter Hepatology Tyrell Rodriguez, Lilian [address] [place] [phone] Surgery Gastroenterology and Matthew Jerome ESOPHAG OGASTRODUODENOSCOPY 2 Hepatology Joshua RodriguezB.B.SLilian Moise [address] [place] [address] Telemedicine Transplant 2 Lab Laboratory Medicine Karin, 2 Adeline Gannon M.D., Ph.D. [address] [place] [address] [phone] Lab Laboratory Medicine Karin, 2 Adeline Gannon M.D., Ph.D. [address] [place] [address] [phone] Office Visit Transplant Karin, Olinda Gannon M.D., Ph.D. [address] [place] [address] [phone] Appointment Radiology Matthew Jerome 2 YElizabeth.B.B.SSuma, Lilian [address] [place] [phone] Appointment Gastroenterology demian Silvre 2 Hepatology Yue Burciaga M.D. [address] [place] [phone] Office Visit Gastroenterology and Matthew Jerome 2 Hepatology Joshua RodriguezB.B.SLilian Moise [address] [place] [phone] Appointment Radiology Matthew Jerome 2 Y M.B.B.SLilian Moise [address] [place] [phone] Scheduled Procedures Name Priority Associated Diagnoses Date/Time ESOPHAGOGASTRODUODENOSCOPY Cirrhosis Alc oholic (HCC) 02/10/2022 8:45 AM CDT Hypertension Portal (HCC) documented as of this encounter Visit Diagnoses Not on filedocumented in this encounter Additional Health Concerns Assessment Noted Time PHQ-9 Depression Total Score: 10/06/2021 5:00 PM CD T documented as of this encounter 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 PCP - General Internal Medicine 12/01/[address] [place] [phone] [facility] [place] lab 08/25/21 Ervin Schroeder MD Referring Provider Family Medicine 03/24/[address] [place] [phone] documented as of this encounter
--- OUTSIDE RECORDS SUMMARY | 2022-01-31 04:23 | XMS_ITS | Encounter Summary ---
:1990 Author Organization [facility] Address [address] [place] [address] Care Team Providers Name Role Phone Ana Red P.A.-C. Primary Care Provider Reason for Referral Physical Therapy (Routine) - Authorized Specialty Diagnoses / Procedures Referred By Contact Refer red To Contact Diagnoses Pain Low Back Unspecified Colleen Crowell M.D., M.P.H. [address] [place] [phone] Referral ID Status Reason Start Expiration Visits Visits Date Date Requested Authorized [id number] Authorized Patient 01/14/2022 01/14/2023 1 1 Preference Medication Prior Authorization - Closed Specialty Diagnoses / Procedures Referred By Contact Refer red To Contact Colleen Crowell M.D ., M.P.H. [address] [place] [phone] Referral ID Status Reason Start Date Expiration Date Visits Requ ested Visits Authorized [id number] Closed 1 1 Outpatient (Routine) - Authorized Specialty Diagnoses / Procedures Referred By Contact Refer red To Contact Diagnoses Pain Low Back Unspecified Colleen Crowell M.D., M.P.H. [address] [place] [address] [phone] Referral ID Status Reason Start Date Expiration Date Visits V isits Requested Authorized [id number] Authorized 01/14/2022 01/14/2023 1 1 Reason for Visit Reason Comments Abdominal Pain Auth/Cert Specialty Diagnoses / Procedures Referred By Contact Refer red To Contact Diagnoses Hepatic Encephalopathy Without Coma (HCC) Procedures ETU Referral ID Status Reason Start Date Expiration Date Visits Requ ested Visits Authorized [id number] 1 1 Encounter Details Date Type Department Care Team Description 01/09/2022 - [facility] Ludwin Garcia Jr., M.D. [address] [place] [phone] Hepatic Encephalopathy Without Coma (HCC ) (Primary Dx); [facility] [address] [place] [phone] Deficiency Vitamin A; [facility], Sree Bach M.D. [address] [place] [phone] Cirrhosis Alcoholic (HCC); [facility], Pain Low B ack Unspecified; Fifth Floor Decline Functional Status [R 53.81 (ICD-10-CM)] [address] [place] [address] [phone] Social History Tobacco Use Types Packs/Day Years [...] do you attend orthodoxy or Never 2021 jain services? 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 - 01/14/2022 11:29 AM CDT DISCHARGE SUMMARY BRIEF OVERVIEW Hospital: [facility] Discharge Provider: Sree Bach M.D. Primary Team: [facility] Gastroenterology B Primary Care Providers: Ana Red P.A.-C. (General) [address] [place] [phone] Primary Care Provider Primary Care Provider Other Providers: None Admission Date: 01/09/2022 Discharge Date: 01/14/2022 PRINCIPAL DIAGNOSIS Hepatic Encephalopathy Without Coma (HCC) SECONDARY DIAGNOSES Principal Problem: Hepatic Encephalopathy Without Coma (HCC) Resolved Problems: * No resolved hospital problems. * DISCHARGE DISPOSITION Home or Self Care [1] ACTIVE ISSUES REQUIRING FOLLOW UP General GI Recommendations: - Obtain outpatient EGD to screen for esophageal varices - Continue scheduled paracentesis as an outpatient for management of ascites - Recommend PCP follow up for low back pain and consideration of trigger point injections. A physical therapy external referral as ordered. - Ciprofloxacin was started for SBP prophylaxis since she had an episode of SBP while on Bactrim. QTc was 473ms on 01/14. Recommend EKG for QTc monitoring by PCP as an outpatient next week to ensure this is stable. Addiction Psychiatry Recommendations: Complete abstinence from alcohol, tobacco, cannabis, prescription opiates, Sedatives/ benzodiazepines, and all substances of abuse. 2. Outpatient level dual-diagnosis addiction treatment to develop relapse prevention skills. 3. Engagement in AA meetings (or other approved recovery meetings), at minimum once weekly. 4. Obtain and utilize a recovery sponsor. 5. Follow plan of care for chronic pain management per Radhames Neumann, Ph.D., L.P. in [facility] ([facility] Rehabilitation), 10/06/2021: - virtual [...] Addiction Psychiatrist based on the patient's progress. None Medications Changed this hospitalization: -Ciprofloxacin 500mg daily started for SBP prophylaxis. Bactrim discontinued. -Ondansetron changed to compazine to reduce risk of QTc prolongation OUTPATIENT FOLLOW UP Scheduled Appointments 01/20/2022 11:00 AM Ana Red P.A.-C. [facility] 01/20/2022 11:30 AM LAB 01 [facility] Laboratory Medicine 01/27/2022 8:00 AM TXP PRE LIVER ROCH 10 Transplant 01/28/2022 2:45 PM Matthew Jerome M.B.B.S., M.D. Gastroenterology and Hepatology For appointment details refer to your Patient Appointment Guide. TEST RESULTS PENDING AT DISCHARGE Pending Labs Order Current Status Bacterial Culture, Aerobic + Susc Preliminary result DETAILS OF HOSPITAL STAY REASON FOR ADMISSION Hepatic Encephalopathy Without Coma (HCC) HOSPITAL COURSE Ms. Catia Carias is a 31 y.o. female admitted for abdominal pain, confusion, and acute anemia. Medical comorbidities include decompensated alcoholic cirrhosis (diagnosed 01/2021), portal hypertension and splenomegaly, ascites, chronic pancreatitis, chronic pain syndrome, GERD, migraines, anxiety, and depression. Patient presented with an approximately one-week history of worsening abdominal distention, abdominal pain, nausea/vomiting, poor PO intake, and worsening of her chronic back pain. She also had a 1 dayhistory confusion and tremulousness. Of note, for the last few months she has required outpatient paracentesis every 2 weeks. At the time of admission it was about 3 weeks since her last paracentesis. She also has had a few episodes of epistaxis over the past week which is new for her. Per her significant other there was not any recent melena, hematochezia, or hematemesis but patient was unable to provide history herself due to AMS. In the ED, patient was found to have a hemoglobin of 6.2, leukocytosis to 13.6, INR 2.5 (at/below baseline), creatinine 1.5 (baseline around 1.0), bilirubin 20.8 (baseline around 13), ALT/AST/alkaline phosphatase are elevated but appear around baseline. She she had an elevated lactate and was fluid resuscitated. A paracentesis was ordered but patient refused the procedure in the ED. She was transferred to the GI-B Service for further workup and management. On the floor, patient was given 1 unit of pRBC. Paracentesis could not be completed initially due toagitation so patient was started on empiric ceftriaxone due to concern for infection and possible GIbleed in the setting of cirrhosis. Also given BID PPI. She did not respond appropriately to the unitof blood she was given so was started on octreotide due to increased concern for GI bleed. Rifaximinand lactulose were continued. Paracentesis was completed the following morning with fluid studies consistent with spontaneous bacterial peritonitis. Her ceftriaxone was continued for a 5 day course. She was given albumin per standard protocol. Her hemoglobin remained stable. There was no evidence of retroperitoneal hematoma on abdominal ultrasound. A liver ultrasound demonstrated a cirrhotic liver with widely patent hepatic veins. She received a repeat therapeutic paracentesis on 01/13/2022 with 2.7Lof fluid removed. A cell count and differential of ascitic fluid demonstrates resolution of her SBP.She was changed to ciprofloxacin for SBP prophylaxis because she developed SBP while on Bactrim. The patient had ongoing chronic back pain and was seen by physical therapy on 01/14 who recommended acane and walker prescription as well as an external PT referral. She was discharged home in stable condition on 01/14. CONSULTS ORDERED DURING THIS ADMISSION IP CONSULT TO GASTROENTEROLOGY IP CONSULT TO CARE MANAGEMENT CONDITION AT DISCHARGE stable Exam: General: 31 y.o. year old female, well developed, in no acute distress. Skin: Appears jaundiced. ENT: Mucous membranes moist Heart: Regular rate and rhythm, no peripheral extremity edema. Lungs: Respirations even and non-labored. On room air. No cough. Abdomen: Distended, non-tender. Musculoskeletal/Joints: Endorses pain over right side. No CVA tenderness. Mental: Alert and oriented to person place time and situation. Good historian. Neuro: Moves all extremities spontaneously. Discharge instructions were provided to the patient and caregiver(s). documented in this encounter Discharge Instructions Discharge InstructionsErik Morfin - 01/12/2022 7:24 AM CDT You were discharged from the [facility] Gastroenterology B Service. Please identify this service name if you call with questions after hospitalization. Discharge Instr - Yue Stephens M.S., O.T. - 01/14/2022 1:00 PM CDT Occupational Therapy Discharge Summary MOBILITY RESTRICTIONS/PRECAUTIONS: Other Precautions: spinal protection principles CURRENT FUNCTIONAL STATUS: Grooming Toileting Lower Body Dressing LE Dressing Level of Assistance: Modified independent LE Dressing Comments: Patient able to retrieve slippers from under hospital bed and don with modified independence using semiconductor technician. Discussed use of semiconductor technician for donning/doffing pants and socks. Offered to provide education on sock aid, though patient declined, citing no further concerns with lower body dressing. Toilet Transfers COGNITIVE ASSESSMENTS PERFORMED: The Cognitive Log (Cog-Log) is intended for individuals who have achieved consistent, accurate orientation via the Orientation Log (O-Log). The Cog-Log is designed to be a quick, quantitative measure of cognition to assess orientation, concentration, and memory. It can be used for serial assessment to document changes over time. A score of 25/30 or higher is considered within normal limits. Score Breakdown: Date: 07/03 Time: 07/03 Name of Hospital: 07/03 Repeat Address: 06/05 20-1: 07/03 Months Reversed: 07/03 30 seconds: 06/05 Ijuq-[id number]-Agfx: 0/3 Go/No-Go: 07/03 Address Recall: 07/03 Total Score: 25/30 (Administered 01/14/2022) RECOMMENDATIONS: Discharge Therapy Needs - OT: Ongoing skilled occupational therapy Level of Care Needed - OT: Assistance with toilet/shower transfers, Assistance with dressing, Assistance with showering/bathing, Assistance with meal preparation, Assistance with financial reporting consultant, Assistance with transportation, Assistance with housekeeping, Assistance with shopping Discharge information provided on 01/14/2022 Contact information: [facility], [address], AttachmentsThe following attachments cannot be sent through Care Everywhere. Acetaminophen (By mouth) (Sammarinese)Ciprofloxacin (By mouth) (Sammarinese)Lidocaine Patch (On the skin) (Sammarinese)Prochlorperazine (By mouth) (Sammarinese) Cholecalciferol (By mouth) (Sammarinese)documented in this encounter Medications at Time of Discharge Medication Sig Dispensed Refills Start Date End Date cholecalciferol 10 mcg Take 1 tablet (400 60 tablet 3 01/15 (400 Unit) tablet Units total) by mouth daily. lidocaine (LIDODERM) 5 % Place 1 patch [...] Cirrhosis Alcoholic doses. Wednesday, (HCC) Wednesday, Wednesday diclofenac sodium Apply 2 g topically 20 g 0 2 (VOLTAREN) 1 % gel 4 (four) times a day. Apply to painful area on skin. levonorgestreL (MIRENA) 1 each by 0 20 mcg/24 hours (7 yrs) intrauterine route 52 mg IUD continuously. Placed in 2014 magnesium oxide (MAG-OX) Take 1 tablet (400 [...] Function Test, Hepatic Encephalopathy Without Coma (HCC) thiamine (VITAMIN B1) Take 100 mg by mouth 0 100 mg tablet daily. zinc sulfate (ZINCATE) Take 220 mg by mouth 0 08/2021 220 (50 mg zinc) capsule daily with breakfast. acetaminophen (TYLENOL) Take 1 tablet (500 60 tablet 3 01/0101/27/2022 500 mg tablet mg total) by mouth every 6 (six) hours as needed for mild pain or score 1-3 of 10 or moderate pain or score 4-6 of 10. spironolactone Take 1 tablet (50 mg 60 tablet 2 01/15/2022 01/20/2022 (ALDACTONE) 50 mg tablet total) by mouth daily. ciprofloxacin (CIPRO) Take 1 tablet (500 60 tablet 2 202101/29/2022 500 mg tablet mg total) by mouth every morning before breakfast. cyclobenzaprine Take 1 tablet (5 mg 15 tablet 0 01/07/2022 01/20/2022 (FLEXERIL) 5 mg tablet total) by mouth [...] Take 15 mL (10 g 1350 mL 12/1001/27/2022 gram/15 mL total) by mouth 3 solutionIndications: (three) times a day. Cirrhosis Alcoholic Titrate to 3 soft (HCC), Hypertension bowel movements Portal (HCC), daily Thrombocytopenia (HCC), Abnormal Liver Function Test, Hepatic Encephalopathy Without Coma (HCC) lidocaine (LIDODERM) 5 % Place 1 patch on the 90 patch 3 0 01/19/2022 01/19/2022 skin daily. Apply to painful area 12 hours per day, remove for 12 hours. lidocaine (LIDODERM) 5 % Place 1 patch on the 10 patch 0 0 01/19/2022 01/27/2022 skin daily. Apply to painful area 12 hours per day, remove for 12 hours. prochlorperazine Take 1 tablet (10 mg 20 tablet 0 2 01/20/2022 (COMPAZINE) 10 mg tablet total) by mouth 3 (three) times a day as needed for nausea. documented as of this encounter Progress Notes Sree Bach M.D. - 01/13/2022 1:35 PM CDT Inpatient Progress Note 01/13/2022 I have personally seen the patient this morning with the entire GI B team. Subjective: She is doing well this morning. No complaints of pain, fever, nausea, or vomiting Objective: Temperature: [36.7 ??C-37.4 ??C] 37.4 ??C Resp Rate: [15-16] 16 Blood Pressure: (123-135)/(72-84) 123/73 SpO2: [94 %-97 %] 97 % Pulse Rate: [87-96] 96 Physical Exam: Alert lying bed in no acute distress. Respiratory effort is not labored. Abdomen is distended but not tense. No peripheral edema. She is fully oriented. Assessment / Plan: #1 Hepatic Encephalopathy Without Coma (HCC) #2 Ascites #3 Spontaneous bacterial peritonitis #4 Alcoholic cirrhosis She is on her 5th day of ceftriaxone. She is doing well. She will consider repeat paracentesis todaygiven the initial markedly high cell count. We will plan to use Cipro for prophylaxis given that this occurred while on prophylactic SMX/TMP. Cornelia Jurado M.D. - 01/12/2022 3:17 PM CDT [facility] G[facility]enter[facility] B PROGRESS NOTE SUBJECTIVE Ms. Carias was alert and awake this morning, answering questions appropriately. She continues to havesome lower right back pain which improves with lidocaine patch. No new concerns. I have reviewed the current medication list. OBJECTIVE VITAL SIGNS Temperature: [36.6 ??C-36.9 ??C] 36.7 ??C Resp Rate: [15-18] 15 Blood Pressure: (104-135)/(65-84) 135/84 SpO2: [92 %-97 %] 94 % Pulse Rate: [87-103] 87 PHYSICAL EXAM General: Alert, oriented, appropriate affect, no apparent distress. Eyes: Scleral icterus ENT: Moist oral mucosa without mucositis. Skin: small perianal pustule with scant drainage, mildly tender. Vessels: Normal radial and pedal pulses. No edema. Heart: Regular rate. No murmurs or rubs. Lungs: Clear to auscultation bilaterally. Abdomen: Distended but improved from previous, no tenderness/rebound/guarding MSK: mild tenderness to palpation of the soft tissue at the right lumbar paraspinal area. Neuro: Cranial nerves II-XII grossly intact. Moving all 4 extremities normally Psych: Appropriate mood and affect. Answer questions appropriately. DIAGNOSTICS I have personally reviewed the laboratory data and imaging since admission, and in/outs for past 72 hours. ASSESSMENT / PLAN Ms. Carias is hospitalized on [facility] G[facility]enter[facility] B for evaluation and management of Hepatic Encephalopathy Without Coma (HCC). # SBP # ascites - plan for repeat paracentesis tomorrow to confirm resolution of SBP - continue ceftriaxone - albumin 1.5mg/kg on day one of SBP treatment, will get 1mg/kg albumin today - patient was on Bactrim for SBP prophylaxis prior to admission and reports taking this as prescribed. Was previously on ciprofloxacin but switched to Bactrim due to concern that Cipro was contributingencephalopathy. We will discuss SBP ppx with her outpatient logistics analytics manager # acute blood loss anemia, improved - no evidence of GI bleeding during this hospitalization, I suspect that acute anemia on admission was 2/2 recent epistaxis. I am not sure why patient did not respond appropriately to the 1st unit of blood that she was given but hemoglobin has been stable since day 2 of her hospital stay. # alcoholic cirrhosis, MELD-Na score: 26 # portal hypertension # hepatic encephalopathy, improved - continue lactulose TID, rifaximin # MOSHE, resolved - encourage PO intake, avoid nephrotoxic meds. # back pain - soft tissue pain on exam - lidocaine patch - voltaren gel - Could consider trigger point injection in the outpatient setting Baseline Mobility: BMAT Level 4 (Able to stand and walk) Diet: regular diet Tubes/lines: PIVx2 VTE prophylaxis: hold for paracentesis tomorrow Code status: Full Code (discussed with Lobito GONZALES) Surrogate Decision Maker: Significant otherLobito Disposition: home, planning for discharge on 01/13 Sree Lopez M.D. - 01/12/2022 2:40 PM CDT Inpatient Progress Note 01/12/2022 I have personally seen the patient this morning with the entire GI B team. I agree with the findingsof Dr. Jurado as documented in today's progress note. Subjective: She is doing well this morning. She is visiting with a relative and is smiling, appearing to be in a good mood. Objective: Temperature: [36.6 ??C-37.6 ??C] 36.6 ??C Resp Rate: [15-18] 15 Blood Pressure: (104-127)/(65-76) 116/72 SpO2: [96 %-97 %] 96 % Pulse Rate: [93-112] 102 Physical Exam: Alert lying bed in no acute distress. Respiratory effort is not labored No peripheral edema Assessment / Plan: #1 Hepatic Encephalopathy Without Coma (HCC) #2 Spontaneous bacterial peritonitis #3 Alcoholic cirrhosis She is on her 4th day of ceftriaxone. She is doing well. She will receive albumin today. We will discuss options for prophylaxis given that this occurred while on prophylactic SMX/TMP. Reese Reyes M.D. - 01/11/2022 10:10 AM CDT Inpatient Progress Note 01/11/2022 I have reviewed the available records, interviewed and examined the patient. Plans for the day were discussed. Subjective: She is markedly better; encephalopathy has resolved More comfortable after paracentesis Objective: Temperature: [36.5 ??C-37.7 ??C] 36.9 ??C Resp Rate: [14-19] 17 Blood Pressure: (101-137)/(51-80) 116/70 FiO2 (%): [21 %] 21 % SpO2: [94 %-98 %] 97 % Pulse Rate: [88-107] 103 Physical Exam: Normal mental status; no encephalopathy Less distended, non tender abdomen Assessment / Plan: #1 Hepatic Encephalopathy Without Coma (HCC) #2. Spontaneous bacterial peritonitis The cell count confirms SBP; complete ceftriaxone and IV albumin. She was already on prophylaxis with septra; will review options with our colleagues in hepatology. Patient was seen along with GI B service Sera Antonio Pharm.D., R.Ph. - 01/11/2022 8:15 AM CDT Images from the original note were not included. Pharmacist Progress Note Reason for admission: hepatic encephalopathy, SBP PMH: alcoholic cirrhosis, cannabis use d/o, long QT syndrome, thrombocytopenia, portal HTN, chronic pain syndrome, anxiety OBJECTIVE Home medications: Held: furosemide, magnesium, spironolactone, bactrim, zinc Changed: vitamin D weekly-->400 units daily, pantoprazole daily --> bid Prophylaxis: None ASSESSMENT / PLAN 01/09 QTc 482, meds reviewed CysC 1.77, eGFR 38; meds reviewed New CTX started 01/09 for IAI; 01/09 and 01/10 bld/urine/peritoneal fluid cx pending. Changes to medications anticipated at discharge: SBP prophylaxis plan Sera Antonio Pharm.D., R.Ph. Admission Medication History Note Adherence issues: No concerns Medication list source: Patient Medication related information: None Prior to Admission Medications Med List Status: Pharmacy Complete Set By: Sera Antonio Pharm.D., R.Ph. at 01/11/2022 8:12 AM Status Comment 01/10/2022 3:16 PM Patient super sedated this afternoon, will reattempt 01/11 Taking? Last Dose Informant Start Date End Date LT cyclobenzaprine (FLEXERIL) 5 mg tablet -- 01/07/22 -- Take 1 tablet (5 mg total) by mouth daily as needed for muscle spasms. Notes: @@has not been able to fill yet@@ diclofenac sodium (VOLTAREN) 1 % gel -- 11/26/21 -- Apply 2 g topically 4 (four) times a day. Apply to painful area on skin. Patient taking differently: Apply 2 g topically 4 (four) times a day. Apply to painful area on skin. Back pain ergocalciferol (DRISDOL) 50,000 Unit capsule -- 04/01/21 -- Take 50,000 Units by mouth once a week. Mondays folic acid 1 mg tablet -- -- -- Take 1 mg by mouth daily. furosemide (LASIX) 20 mg tablet -- 12/10/21 12/10/22 Take 2 tablets (40 mg total) by mouth daily. lactulose (CHRONULAC) 10 gram/15 mL solution -- 12/10/21 12/10/22 Take 15 mL (10 g total) by mouth 3 (three) times a day. Titrate to 3 soft bowel movements daily levonorgestreL (MIRENA) 20 mcg/24 hours (7 yrs) 52 mg IUD -- -- -- 1 each by intrauterine route continuously. LORazepam (ATIVAN) 1 mg tablet () -- 12/18/21 01/07/22 Take 1 tablet (1 mg total) by mouth once for 1 dose. Take 30 minutes before your scheduled paracentesis magnesium oxide (MAG-OX) 400 mg (241.3 mg magnesium) tablet -- 12/02/21 -- Take 1 tablet (400 mg total) by mouth 2 (two) times a day before breakfast and dinner. ondansetron ODT (ZOFRAN-ODT) 8 mg disintegrating tablet -- 04/23/21 -- Dissolve 1 tablet in the mouth 3 (three) times a day as needed for nausea or vomiting. pantoprazole (PROTONIX) 40 mg EC tablet -- 03/24/21 -- Take 1 tablet (40 mg total) by mouth every morning before breakfast. rifAXIMin (XIFAXAN) 550 mg tablet -- 12/10/21 12/10/22 Take 1 tablet (550 mg total) by mouth 2 (two) times a day. spironolactone (ALDACTONE) 50 mg tablet -- 12/10/21 12/10/22 Take 2 tablets (100 mg total) by mouth daily. sulfamethoxazole-trimethoprim (BACTRIM DS) 800-160 mg per tablet -- 12/10/21 12/10/22 Take 1 tablet by mouth daily. Take 1 tablet daily for thiamine (VITAMIN B1) 100 mg tablet -- -- -- Take 100 mg by mouth daily. traZODone (DESYREL) 100 mg tablet -- 01/07/22 -- Take 1 tablet (100 mg total) by mouth at bedtime as needed for sleep. vitamin A 3,000 mcg (10,000 Unit) capsule -- 10/08/21 01/31/22 Take 1 capsule (3,000 mcg total) by mouth 3 (three) times a week for 50 doses. Patient taking differently: Take 3,000 mcg by mouth 3 (three) times a week. Wednesday, Wednesday, Wednesday zinc sulfate (ZINCATE) 220 (50 mg zinc) capsule -- 12/05/21 -- Take 220 mg by mouth daily with breakfast. documented in this encounter H&P Notes Reese Reyes M.D. - 01/10/2022 11:03 AM CDT Hospital Admission Note Date: 01/10/2022 Chief Complaint/Reason for Admission: Hepatic Encephalopathy Without Coma (HCC) This is a supervisory note for Dr. Jurado and Ms. Bellamy. I have reviewed the available records, interviewed and examined the patient. I agree with the history, physical examination, and plan as outlined in Dr. Jurado's and Benjiputsadmission note from 01/09/2022. History of Present Illness: Ms. Carias is a 31 y.o. female who is admitted with altered mental status (hepatic encephalopathy) and profound anemia in the setting of known advanced alcohol related cirrhosis. Overnight her confusion has cleared; she is on antibiotics and octreotide due to the possibility of a portal hypertensive related bleed She denies any overt bleeding history Review of Systems: All other systems reviewed and negative unless mentioned in the history of present illness or problem list. History Review: I reviewed the patient's allergies, current medications, family history, medical history, social history, surgical history and problem list. Objective: Vital Signs: Temperature: [36.3 ??C-36.8 ??C] 36.8 ??C Resp Rate: [16-20] 16 Blood Pressure: (79-144)/(46-73) 106/51 FiO2 (%): [21 %] 21 % SpO2: [92 %-100 %] 94 % Pulse Rate: [92-119] 105 Physical Exam: General: Resting comfortably in NAD; she is alert; very mild delay; oriented Eyes: icteric Mouth: Normal oropharynx without aphthous ulcers Neck: No cervical or supraclavicular lymphadenopathy. No thyroid masses or tenderness. Lungs: Clear Heart: Regular Abdomen: distended by relatively non tender; liver edge not felt Extremities: no edema cords or calf tenderness Skin: Anicteric without rash Psych: alert, oriented, appropriate Multiple stigmata of chronic liver disease Assessment/Plan: #1 Hepatic Encephalopathy Without Coma (HCC) The etiology of the decompensation is not clear. Her source for the loss of hemoglobin is also indeterminate. No a variceal bleed; SBP still possible; proceeding with paracentesis today Will watch hemoglobin; on the ultrasound/ doppler study we will interrogate the retroperitoneum to make sure there isn't hemorrhage there. Agree with plans Kit Bellamy - 01/09/2022 1:52 PM CDT T Gastroenterology B Admission Note SUBJECTIVE CHIEF COMPLAINT Abdominal pain and altered mental status HISTORY OF PRESENT ILLNESS Ms. Catia Carias is a 31 y.o. female who presents with altered mental status and abdominal painin the setting of known alcoholic cirrhosis, portal hypertension and splenomegaly (diagnosed 01/2021). PMH is otherwise significant for nicotine dependence, chronic pain syndrome, GERD, chronic pancreatitis, anemia, thrombocytopenia, anxiety, cannabis use, and mood disorder. She follows with Dr. Jerome in the outpatient setting undergoing transplant evaluation. She was previously admitted to the [facility] GI service during the month of October for about 2 weeks for management of hepatic encephalopathy. In addition, she had episodic altered mental state with being mutebut alert during the same hospitalization. She was managed with lactulose and rifaximin. She was also found to have large ascites and she underwent paracentesis and SBP was ruled out. She did not have any GI bleeding. Patient presented to the [facility] ED with worsening abdominal distension over the past week and new onsetconfusion starting last night. Per history from her partner Lobito, she has been getting a paracentesis every 2 weeks in the outpatient setting for ascites for the last few months, which prior to her rec ent hospitalizations had been more sporadic. Her last paracentesis was about three weeks ago. She began to develop abdominal pressure and distension once again last week, and over the past week, he reports that patient has been nauseous and vomiting, had decreased oral intake and increased back and abd ominal pain. He mentions that last night around 1 am, she started to seem confused, wanting to go [employer] grocery store, suddenly awakening every hour saying she needed to go the bathroom. During history taking today as well, patient does repeatedly mention that she needs to use the bathroom. He also me ntions that she has been shaky with her hands over the last day. Her partner maintains that she has been compliant with her medications to his knowledge, although does mention that she may have missed a few doses in between as she was concerned about her vomiting. He denies any recreational drug use for her, last alcoholic drink being in July 2020. Medical marijuana, gabapentin and oxycodone use stopped in late October. She quit smoking 4 months ago. Has a history of tylenol toxicity due to self-medicating for neuropathic pain after surgery. Does mention that she has had new epistaxis over the past week. Denies dark tarry stools, hematochezia, hematemesis or hemoptysis. No recent infections. On arrival to the ED, patient was noted to be in significantly mentally altered, oriented to the person but not place or date. Labs were significant for Hgb 6.2 (baseline 7.5-8.5), WBC 13.6, elevated POCT lactate 3.55, ammonia 119, INR 2.5, Cr 1.5. Bilirubin was elevated to 20.8 (baseline 10-11), Dbili 11.3 (baseline 5), AST 65, ALP 237. Urinalysis was positive for nitrates, granular casts and renal epithelial cells. Lipase was normal at 25. She received 1 L of fluids while in the ED. I have reviewed and updated the following: Past Medical History, Family History, Social History, andAllergies. Current Outpatient Medications on File Prior to Encounter: cyclobenzaprine (FLEXERIL) 5 mg tablet, Take 1 tablet (5 mg total) by mouth daily as needed for muscle spasms. diclofenac sodium (VOLTAREN) 1 % gel, Apply 2 g topically 4 (four) times a day. Apply to painful area on skin. ergocalciferol (DRISDOL) 50,000 Unit capsule, Take 50,000 Units by mouth once a week. ergocalciferol, vitamin D2, 10 mcg (400 unit) tablet, 50,000 Units. folic acid 1 mg tablet, Take 1 mg by mouth daily. furosemide (LASIX) 20 mg tablet, Take 2 tablets (40 mg total) by mouth daily. lactulose (CHRONULAC) 10 gram/15 mL solution, Take 15 mL (10 g total) by mouth 3 (three) times a day. Titrate to 3 soft bowel movements daily levonorgestreL (MIRENA) 20 mcg/24 hours (7 yrs) 52 mg IUD, 1 each by intrauterine route continuously. LORazepam (ATIVAN) 1 mg tablet, Take 1 tablet (1 mg total) by mouth once for 1 dose. Take 30 minutes before your scheduled paracentesis magnesium oxide (MAG-OX) 400 mg (241.3 mg magnesium) tablet, Take 1 tablet (400 mg total) by mouth 2 (two) times a day before breakfast and dinner. ondansetron ODT (ZOFRAN-ODT) 8 mg disintegrating tablet, Take 1 tablet by mouth 3 (three) times a day as needed. pantoprazole (PROTONIX) 40 mg EC tablet, Take 1 tablet (40 mg total) by mouth every morning before breakfast. rifAXIMin (XIFAXAN) 550 mg tablet, Take 1 tablet (550 mg total) by mouth 2 (two) times a day. spironolactone (ALDACTONE) 50 mg tablet, Take 2 tablets (100 mg total) by mouth daily. sulfamethoxazole-trimethoprim (BACTRIM DS) 800-160 mg per tablet, Take 1 tablet by mouth daily. Take 1 tablet daily for thiamine (VITAMIN B1) 100 mg tablet, Take 100 mg by mouth daily. traZODone (DESYREL) 100 mg tablet, Take 1 tablet (100 mg total) by mouth at bedtime as needed for sleep. vitamin A 3,000 mcg (10,000 Unit) capsule, Take 1 capsule (3,000 mcg total) by mouth 3 (three) times a week for 50 doses. REVIEW OF SYSTEMS Pertinent items are noted in HPI; all other review of systems was negative. OBJECTIVE VITAL SIGNS Temperature: [36.6 ??C-36.7 ??C] 36.6 ??C Resp Rate: [18-20] 20 Blood Pressure: (79-114)/(46-73) 104/73 SpO2: [92 %-99 %] 98 % Weight: [59 kg] 59 kg Pulse Rate: [107-118] 108 PHYSICAL EXAM General: Patient appears to be in acute distress, is confused. Oriented to person, but not place andtime. Skin: Skin is diffusely jaundiced over entire body area. Eyes: Icteric sclera present. Lungs: Breathing comfortably on room air. Heart: Regular rate and rhythm. No murmurs appreciated. No lower extremity edema. Abdomen: Diffusely distended and tender abdomen. No guarding or rebound tenderness. Spider angiomas across the abdomen. DIAGNOSTICS I have reviewed the labs and diagnostics from admission. ASSESSMENT / PLAN Ms. Catia Carias is a 31 y.o. female who is hospitalized on [facility] Gastroenterology B for evaluation and management of altered mental status and abdominal pain in the setting of known alcoholic cirrhosis, portal hypertension and splenomegaly (diagnosed 01/2021). PMH is otherwise significant for nicotine dependence, chronic pain syndrome, GERD, chronic pancreatitis, anemia, thrombocytopenia, anxiety,cannabis use, and mood disorder. She follows with Dr. Jerome in the outpatient setting undergoing transplant evaluation. Patient has evidence of jaundice with scleral icterus and refractory ascites. At this time, I suspect that the patient's confusion is likely hepatic encephalopathy given the elevation in ammonia levels, asterixis, known alcoholic cirrhosis and history of hepatic encephalopathy. My suspicion for toxic-m etabolic encephalopathy is low as patient has been off medications and drugs increasing risk for confusion after her recent hospitalization in October for hepatic encephalopathy. No concern for head trauma. Per history her last alcoholic drink was over a year ago so unlikely to be alcohol withdrawal, has been treated for vitamin deficiencies. Patient does have an elevated white count, urinalysis was positive for nitrates, has been hypotensive and tachycardic as well which does raise some concern for a septic picture. Chest x- ray, blood cultures and paracentesis for infectious workup for SBP (although p demond has been on SBP prophylaxis since previous hospitalization) and systemic infection are pending, which if positive could be contributory to her confusion. Given this concern for SBP, will start patient on ceftriaxone. Given that patient has not presented with acute symptoms concerning for GI bleed such as hematemesis, melena or hematochezia, my suspicion for ongoing bleed from esophageal varices is low. However, patient has never had an EGD to screen for esophageal varices and does have an acute drop in Hgb to 6.2 from baseline of 7.5-8.5. She has been hypotensive and tachycardic since admission, we will transfusewith 1 unit pRBCs and 25 g IV albumin. Will watch for post-transfusion Hgb, any signs of overt bleeding and vital signs overnight. Patient has had new epistaxis over the last week, other diagnoses to consider could be portal hypertensive gastropathy, gastric antral vascular ectasia or peptic ulcer dise ase. Patient does have an elevated creatinine at 1.5 from baseline <1. This could certainly be due to low effective arterial blood volume from the ascites, nausea/ vomiting over the last week or potential bleed. However could also be presentation for hepatorenal syndrome. Patient was also found to have urine retention of 900 ml on bladder scan. For now repleting volume with 25 g IV albumin, hold home diuretics, will watch for trend in creatinine, cystatin C and urine output. # Hepatic Encephalopathy Without Coma (HCC) # Ascites, refractory # Altered mental status # Alcoholic cirrhosis, decompensated # Portal hypertension # Anemia # Thrombocytopenia # Acquired coagulation deficiency # Acute kidney injury, query HRS # Nausea Plan: - Paracentesis with cell count with differential, albumin, protein and cultures to rule out SBP - 1 unit pRBC transfusion, watch vitals and Hgb for further need - Initiate ceftriaxone IV 1 g - Replete blood volume with albumin 25 g IV, watch vitals, BMP and clinical assessment for further needs - F/u chest X-ray, blood cultures for infectious workup - Observe I/Os, trend creatinine and cystatin C - Continue home rifaximin 550 mg BID and lactulose 10 g TID - Continue home Vitamin D3, folic acid, thiamine and Vitamin A - PRN Zofran for nausea - NPO until mental status resolved - hold home lasix and spironolactone given low EABV, hypotension, MOSHE - hold home Bactrim # Chronic pancreatitis # Mechanical low back pain # GERD - Pain control: Dilaudid PRN - Hold home ativan and trazodone given concern for altered mental status - Continue home pantoprazole 40 mg PO Baseline Mobility: BMAT Level 4 (Able to stand and walk) Diet: NPO diet Tubes/lines: PIV VTE prophylaxis: therapeutic anticoagulation Code status: Full Code Surrogate Decision Maker: Ariadna Lobito Disposition: Home Remigiooz Mia, MS4 [facility] Cornelia Jurado M.D. - 01/09/2022 12:08 PM CDT T Gastroenterology B Admission Note CHIEF COMPLAINT Abdominal pain This is a supervisory note for student doctor Kit Bellamy. I have reviewed the available records, interviewed and examined the patient. I agree with the history, physical examination, and plan as outlined in her admission note from 01/09/22. HISTORY OF PRESENT ILLNESS Ms. Catia Carias is a 31 y.o. female who presents with altered mental status. Medical comorbidities include decompensated alcoholic cirrhosis (diagnosed 01/2021), portal hypertension and splenomegaly, ascites, chronic pancreatitis, chronic pain syndrome, GERD, migraines, anxiety, and depression. Patient was unable to provide a history due to her altered mental status and agitation so history was obtained from patient's significant other, Lobito, and chart review. Patient has an approximately one-week history of worsening abdominal distention, abdominal pain, nausea/vomiting, poor PO intake, and worsening of her chronic back pain. Since yesterday evening she hasseemed confused, saying things that do not make sense, and her hands are tremulous. Of note, for thelast few months she has required outpatient paracentesis every 2 weeks. It has been 3 weeks since her last paracentesis. She has had a few episodes of epistaxis over the past week which is new for her.Her significant other is not aware of her having any melena, hematochezia, or hematemesis. She does not have any known history of SBP or varices (outpatient screening EGD ordered but not yet completed). Patient is on lactulose and rifaximin at home, as well as Bactrim for SBP primary prophylaxis. Her significant other thinks she has been taking her medications for the most part but may have missed some doses in the past week due to her nausea/vomiting. He reports that her last alcoholic drink was in [place] 2020. She quit marijuana, gabapentin, and oxycodone in late October and quit smoking 4 months ago,all in an effort to become transplant eligible. No other recreational drug use. In the ED, patient was afebrile, tachycardic to the 110s, BP 114/69, satting well on room air. Workup was notable for hemoglobin of 6.2, leukocytosis to 13.6, INR 2.5 (at/below baseline), creatinine 1.5 (baseline around 1.0), bilirubin 20.8 (baseline around 13), ALT/AST/alkaline phosphatase are elevated but appear around baseline. Lactate was 3.55 and patient was given a L of IV fluids. A paracentesis was ordered but patient refused. She was transferred to the GI be service for further workup and management. On arrival to the floor, patient was only oriented to self. She was agitated and repeatedly said sheneeded to go to the bathroom even after urinating. She also notes bothersome back pain. Further history and ROS unable to be obtained due to her mental status. She received 1 unit of pRBCs. I have reviewed and updated the following: Past Medical History, Family History, Social History, andAllergies. REVIEW OF SYSTEMS Review of systems not obtained due to patient factors: altered mental status. OBJECTIVE VITAL SIGNS Temperature: [36.3 ??C-36.7 ??C] 36.7 ??C Resp Rate: [18-20] 18 Blood Pressure: (79-144)/(46-73) 113/56 SpO2: [92 %-100 %] 99 % Weight: [59 kg] 59 kg Pulse Rate: [92-119] 99 PHYSICAL EXAM General: Alert, agitated, oriented to person only Eyes: Scleral icterus ENT: Dry oral mucosa Skin: No rashes or ulcers on visualized skin Vessels: Normal radial and pedal pulses. No edema. Heart: Fast rate. Lungs: Breathing comfortably on room air Abdomen: Distended, diffusely tender. No rebound or guarding Neuro: Cranial nerves II-XII grossly intact. Moving all 4 extremities normally. MSK: Exam limited by mental status but no obvious focal areas of tenderness along the spinous processes Psych: agitated. Does not answer questions appropriately such as saying bathroom when asked about an alternate decision maker DIAGNOSTICS I have reviewed the labs and diagnostics from admission. ASSESSMENT / PLAN Ms. Carias is hospitalized on [facility] Gastroenterology B for evaluation and management of abdominal pain,confusion, and acute anemia. Medical comorbidities include decompensated alcoholic cirrhosis (diagnosed 01/2021), portal hypertension and splenomegaly, ascites, chronic pancreatitis, chronic pain syndrome, GERD, migraines, anxiety, and depression. Patient is presenting with hepatic encephalopathy in the setting of known alcoholic cirrhosis. I am concerned for underlying infection precipitating her hepatic encephalopathy as she has a leukocytosis. Tachycardia, BP, and lactate have improved after IVF and 1u pRBC. Unfortunately we were unable to get a paracentesis prior to starting ceftriaxone due to agitation and patient declining the procedure.Infectious workup with CXR, blood cultures, and urine cultures is pending. Paracentesis with fluid studies is planned for tomorrow morning. Another potential etiology is a GI bleed given her acute anemia though she does not have any known melena/hematochezia/hematemesis. I have low suspicion for variceal bleeding given there have been no signs of GI bleed since presentation. Will therefore hold off on octreotide for now. More likely causes of her acute anemia are portal hypertensive gastropathy, ulcer, or her recent epistaxis. # hepatic encephalopathy # ascites # alcoholic cirrhosis, MELD-Na 33 # portal hypertension # acute blood loss anemia # MOSHE # leukocytosis # chronic low back pain - ceftriaxone due to concern for infection and GI bleed in setting of cirrhosis - blood and urine cultures, CXR - paracentesis in the morning - BID PPI for possible GI bleed - lactulose and rifaximin, titrate to 3-4 BMs per day. May need NG tube in the morning if not tolerating orally - continue home thiamine, vit A, folic acid, vit D - PRN dilaudid for pain control, minimize opioids as much as able to optimize mental status - PRN zofran - s/p 1 L IVF, 5% albumin, continued fluid resus as needed - hold octreotide for now due to low suspicion for variceal bleed, but low threshold to start if patient develops evidence of GI bleeding or becomes hemodynamically unstable - keep NPO due to AMS, concern for safe swallow. May need TIME BROKER eval - monitor renal function and UOP closely in setting of MOSHE, likely prerenal component but possible HRS as well Baseline Mobility: BMAT Level 4 (Able to stand and walk) Diet: NPO Tubes/lines: PIVx2 VTE prophylaxis: hold due to possible bleeding, procedure Code status: Full Code (discussed with Lobito GONZALES) Surrogate Decision Maker: Significant otherLobito Disposition: Uncertain documented in this encounter Consult Notes Yue Christianson M.S., O.T. - 01/14/2022 10:49 AM CDT Occupational Therapy Acute Hospital Inpatient Evaluation/Treatment SUBJECTIVE Patient's Name: Catia Carias Referring/Attending Provider: Sree Bach M.D. Medical Diagnosis: Hepatic Encephalopathy Without Coma (HCC) [K72.90] Reason for Referral: Occupational Therapy Evaluation and Treatment General Acute Onset Date: 01/09/22 Payor: [facility] [place] CARE / Plan: [facility] [place] CARE RESTRICTED PLAN / Product Type: Medicaid HMO / PERTINENT MEDICAL / SURGICAL HISTORY: Patient Active Problem List Diagnosis Cirrhosis Alcoholic (HCC) Acute Respiratory Failure (HCC) Anemia Abnormal Liver Function Test Other Specified Behavioral And Emotional Disorders With Onset Usually Occurring In Childhood And Adolescence Ascites Cannabis Mild Use Disorder (Abuse) Uncomplicated Gastroesophageal Reflux Disease Without Esophagitis Hepatic Failure Unspecified Without Coma (HCC) Long QT Syndrome Pancreatitis Chronic (HCC) Rhinitis Allergic Patent Foramen Ovale (HCC) Alcohol Use Unspecified With Unspecified Alcohol Induced Disorder (HCC) Thrombocytopenia (HCC) Deficiency Coagulation Acquired (HCC) Vomiting Hypertension Portal (HCC) Pretransplant Recipient Evaluation Exam Deficiency Vitamin A Mcfp Use Of Opiate Analgesic Nicotine Dependence Cigarettes Chronic Pain Syndrome COVID-19 Infection Anxiety Hepatic Encephalopathy Without Coma (HCC) Past Surgical History: Procedure Laterality Date ELBOW SURGERY Left 2018 per patient OTHER SURGICAL HISTORY Unsure Tendon repair surgery and surgery on left elbow. TENDON REPAIR Left left foot per patient History of Present Illness:31 year old female admitted with altered mental status. History includes liver cirrhosis and chronic low back pain. Occupational Profile: Prior Function/Occupational Profile Dominant Hand: Right Lives With: Significant other Receives Help From: Family ADL Assistance: Required assistance ADL Assistance Comments: [place] helps her to and from the bathroom when needed, independent with dressing, but has to do so sitting or lying, toileting and bathing independent but has assist gettting to toilet or into tub shower. This started about 5 weeks ago when she was in the shower and felt her back spasm. IADL/Homemaking Assistance: Required assistance IADL/Homemaking Assistance Comments: [employer] assists with meal preparation and housekeeping. Able to prepare simple meals if needed. Able to do light cleaning tasks such as dishes but unable to do heavier tasks such as sweeping, mopping, etc. due to back pain. [facility] assists with setting up weekly pillbox. 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 Home Living Type of Home: Apartment Home Layout: One level Home Layout Comments: two flights of stairs to get to her apartment Bathroom Shower/Tub: Tub/shower unit Tub/shower unit location: Main floor Bathroom Toilet: Standard Bathroom Accessibility: Yes How Accessible: Accessible via walker Home Equipment Other DME Equipment : (flat bed) Bathroom Equipment: None Family/Caregiver Present: No Patient/Caregiver Goals: Return home Patient Comments: Patient seated at edge of bed at OT arrival and agreeable to OT session. Low back pain rated at 6/10. Precautions Other Precautions: spinal protection principles OBJECTIVE Vitals not formally assessed during session. No concerns during chart review and the patient had no signs or symptoms consistent with vital changes during therapy session. Cognition Cognitive assessment method: Therapist observations, Cognitive screening results Arousal/Alertness: Appropriate responses to stimuli Attention: Addressed, no concerns noted Initiation: No difficulty with initiation Orientation: Oriented X4 Following Commands: Follows all commands/directions without difficulty Cognition Comments: Administered Orientation Log (O-Log) and Cognitive Log (Cog- Log) due to confusion present on admission. Patient [...] Independent Device: Head of bed elevated Comments: No cues or physical assistance required. Bed Mobility - Sit to Supine # of Assistants: 0 Level of Assistance: Modified Independent Device: Head of bed elevated Comments: No cues or physical assistance required. Bathing Bathing Delivery: Educated Bathing Comments: Educated on benefit of a shower chair with a back to assist with energy conservation, safety, and reduction of back pain. LE Dressing LE Dressing Location: Seated on edge of bed LE Dressing Delivery: Facilitated, Assessed LE Dressing Items Included: Shoes LE Dressing Level of Assistance: Modified independent LE Dressing Comments: Patient able to retrieve slippers from under hospital bed and don with modified independence using semiconductor technician. Discussed use of semiconductor technician for donning/doffing pants and socks. Offered to provide education on sock aid, though patient declined, citing no further concerns with lower body dressing. Sleep Hygiene Sleep Hygiene: Educated on potential benefit of wedge pillows for reduction of back pain if patient is unable to lie flat or tolerate sleeping in a chair. Patient currently uses pillows between her knees to assist with pain management. ADL Comments ADL Comments: Educated on the role of OT in the acute care setting. Educated on adaptive equipment and durable medical equipment for home use and provided instructions on how to obtain desired equipment. Facilitated discussion on non- pharmacological pain management strategies including heat/ice, positioning changes, and trigger point release. Patient reports she also finds relief with participation in general yoga exercises. Educated on activity modifications including deferring pet care and household tasks as needed. Patient plans to follow up with outpatient therapy for further education on strengthening and body mechanics. Team Communication: Patient's nurse was contacted and patient's status was discussed, Primary service was contacted and patient's status was discussed Inpatient AVS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 vitally stable throughout the night. Pain seemed to persist, but the dilaudid gave her some rest. She got rest on and off during the night. She did not want labs drawn overnight because of arm pain, but service was notified and was okay with it. Will continue to monitor. Problem: PAIN - ADULT Goal: PT VERBALIZES/DEMONSTRATES [...] free from fall/fall injury Outcome: Progressing Problem: POTENTIAL OR ACTUAL PRESSURE [...] integrity is maintained or improved Outcome: Progressing Yanira Martinez R.N. - 01/12/2022 6:06 PM CDT Problem: PAIN - ADULT Goal: [...] free from fall/fall injury Outcome: Progressing Problem: POTENTIAL OR ACTUAL PRESSURE [...] Goals for the Shift: Pt will remain safe, vitally stable, and AxO x3,. Identify possible barriers to meeting goals/advancing plan of care: None. End of Shift Summary: Pt reported moderate back pain that was attempted to be relieved with PRN Dilaudid, scheduled Tylenol, and a Lidocaine patch. She also reported nausea that was relieved with PO Zofran and IV Compazine. She had good UOP and a large BM 1x. VSS. Plan is for a paracentesis and discharge tomorrow. Almita Britt R.N. - 01/12/2022 5:12 AM CDT Shift Goals: Clinical Goals for the Shift: Patient will remain vitally stable and report adequate rest throughoutshift Identify possible barriers to meeting goals/advancing plan of care: None End of Shift Summary: Patient remained vitally stable throughout shift. Dilaudid required for back pain. Patient had a large bowel movement. Patient making adequate urine. Nursing promoted rest as muchas able. Nola Naranjo R.N. - 01/11/2022 3:50 PM CDT Shift Goals: Clinical Goals for the Shift: pt will remain safe Identify possible barriers to meeting goals/advancing plan of care: none End of Shift Summary: Pt remained safe, call light appropriate and free of falls during shift. Appears to have more energy to move around in the room, but has some hesitancy with moving due to chronic back pain. Pain managed with PO dilaudid. Received one dose of compazine for nausea this evening, no emesis. Adequate UO, no BM but passing gas. Close obs now appropriate for pt's demeanor and being A & O X3 and call light appropriate. Problem: PAIN - ADULT Goal: PT VERBALIZES/DEMONSTRATES [...] free from fall/fall injury Outcome: Progressing Problem: POTENTIAL OR ACTUAL PRESSURE [...] integrity is maintained or improved Outcome: Progressing Almita Britt R.N. - 01/11/2022 4:49 AM CDT Shift Goals: Clinical Goals for the Shift: Patient will remain vitally stable and safe throughout shift Identify possible barriers to meeting goals/advancing plan of care: None End of Shift Summary: Patient remained vitally stable throughout shift. Patient remains slightly tachycardic. Abdomen remains distended from ascites. Dilaudid given for back pain. Patient making adequate urine. Problem: PAIN - ADULT Goal: PT VERBALIZES/DEMONSTRATES [...] free from fall/fall injury Outcome: Progressing Problem: POTENTIAL OR ACTUAL PRESSURE [...] integrity is maintained or improved Outcome: Progressing Nola Naranjo R.N. - 01/10/2022 5:01 PM CDT Shift Goals: Clinical Goals for the Shift: Patient will remain vitally stable and safe throughout shift Identify possible barriers to meeting goals/advancing plan of care: none End of Shift Summary: Overall, pt remained vitally stable during shift, HR briefly 100s/tachy duringAM and into evening. Hgb check was 6.4 in afternoon - 1 unit of RBCs started. Pt received zofran andcompazine for nausea, tolerating small bites of food. Octreotide drip still running for now. Pt reports feeling better since coming back from paracentesis procedure, has been resting this evening/afternoon. A &O x3 this shift. Problem: PAIN - ADULT Goal: PT VERBALIZES/DEMONSTRATES [...] free from fall/fall injury Outcome: Progressing Problem: POTENTIAL OR ACTUAL PRESSURE [...] integrity is maintained or improved Outcome: Progressing Almita Britt R.N. - 01/10/2022 5:44 AM CDT Shift Goals: Clinical Goals for the Shift: Patient will remain vitally stable and safe throughout shift Identify possible barriers to meeting goals/advancing plan of care: None End of Shift Summary: Patient remained slightly tachycardic during shift. Service aware. All other vital signs stable. Patient stated she felt like she could not take a deep breath, service aware, vital signs monitored and stayed within designated limits. Patient had nausea throughout shift and had anepisode of emesis after taking her evening medications. Service aware. Zofran given and patient continued to endorse feeling nauseous. Compazine given, and patient reported relief and was able to get some sleep. Patient remains an IA due to confusion (alert and oriented only to person during shift) and impulsivity. Patient remains incontinent of urine. No stool this shift. Patient was given another unit of blood this shift. Patient was started on Octreotide drip per service's orders. Still waiting for paracentesis. In the morning patient was alert and oriented x3. Dilaudid was given for back pain. Problem: PAIN - ADULT Goal: PT VERBALIZES/DEMONSTRATES [...] free from fall/fall injury Outcome: Progressing Problem: POTENTIAL OR ACTUAL PRESSURE [...] integrity is maintained or improved Outcome: Progressing Marixa Romero R.N. - 01/09/2022 5:36 PM CDT Problem: PAIN - ADULT Goal: [...] free from fall/fall injury Outcome: Progressing Problem: POTENTIAL OR ACTUAL PRESSURE [...] Shift Goals: Clinical Goals for the Shift: VSS and remain safe Identify possible barriers to meeting goals/advancing plan of care: confusion End of Shift Summary: Lower BP baseline- otherwise VSS. Pt confused. Remained safe. Weight: 59 kg, Blood Pressure: (!) 105/54, Pulse Rate: 100, Resp Rate: 18, Temperature: 36.3 ??C, SpO2: 95 % documented in this encounter ED Notes Migue Garcia Jr., M.D. - 01/09/2022 11:06 AM CDT I saw the patient with the medical student. I was present for or re-performed the History of PresentIllness. I personally performed a Physical Exam and Medical Decision Making. I reviewed medical student documentation and agree or amended. IMPRESSION AND PLAN 1. Hepatic encephalopathy 2. Possible SBP 3. Anemia Catia Carias is a 31 y.o. female with a history of alcoholic cirrhosis who presents with abdominal pain. She is also confused and likely has hepatic encephalopathy. She has had this in the past and her presentation is similar to those admissions in the past. With her history, we did obtain a laboratory workup. Her hemoglobin came back at 6.2, which is below her usual baseline of approximately 7.5 to 8.0. We will be initiating transfusion of a unit of blood. We did order an ultrasound-guided paracentesis, however, she refused the paracentesis while and ultrasound. During my interview with her, she was lucid and answering questions appropriately. I think she does have the capacity to refuse this procedure at this time. SBP is certainly on our differential and we discussed the case with GI. They would prefer we hold off on antibiotics at this time until they are able talk to her more. Her urine does show blood, but no wbc's. This is reassuring. Therefore, we will indeed hold off on antibiotics until they are able to speak with her. Final Diagnoses: as of 01/09/22 1255 Hepatic Encephalopathy Without Coma (HCC) Migue Garcia Jr., M.D. 01/10/22 1015 Jo Ann Cartagena - 01/09/2022 9:48 AM CDT SUBJECTIVE CHIEF COMPLAINT/REASON FOR VISIT Abdominal Pain HISTORY OF PRESENT ILLNESS 31 y.o. female with a history of alcoholic cirrhosis presents with worsening abdominal distension over the past week and new onset confusion starting last night. The patient presents here with her partner, who provides most of the history as the patient is confused throughout the interview. He statesthat she gets a paracentesis about every two weeks or until her symptoms get bad enough. Her last paracentesis was three weeks ago. Over the past week, her oral intake has decreased because of abdominal pressure and she has experienced both nausea and vomiting. Last night, he started noticing that shekept repeating herself and seemed off. She has been talking about having to go to the bathroom all morning. It is unclear whether she has urinated. Partner denies she has any history of SBP. She has been adhering to her medications including her lactulose and rifaximin. Has had 2 BMs/day. REVIEW OF SYSTEMS Limited ROS performed Constitutional: Positive for chills. Negative for fever. Gastrointestinal: Positive for abdominal distention. Psychiatric/Behavioral: Positive for confusion. OBJECTIVE Initial Vitals Temperature Pulse Rate Heart Rate Resp Blood Pressure SpO2 01/09/22 0900 01/09/22 0900 -- -- 01/09/22 0900 01/09/22 0900 36.7 ??C (!) 115 114/69 97 % Pain Score 01/09/22 0904 10 - Worst possible pain PHYSICAL EXAMINATION Constitutional: Vitals reviewed. She appears distressed. HENT: Head: Normocephalic. Mouth/Throat: Mucous membranes are moist. Jaundiced mucous membranes. Eyes: Scleral icterus present. Abdominal: exhibits distension and ascites.There is no abdominal tenderness. Neurological: Oriented to self but not place or date. Appears confused and listless. Asterixis present. Skin: She is not diaphoretic. There is jaundice. Spider angiomas across abdomen. ASSESSMENT/PLAN 31 y.o. female with a history of alcoholic cirrhosis presents for worsening abdominal distension andnew-onset confusion. Symptoms are concerning for SBP, sepsis, lower UTI, pyelonephritis, hepatic encephalopathy or a combination of those. During her stay, the patient tried to use the restroom severaltimes but was unable to urinate. She was catheterized and UA showed nitrites, suggesting a possible UTI. We also obtained a paracentesis with associated cell studies, CBC, BMP, liver function tests, and blood cultures. Received 1L of NS. Critical lab result: Hgb: 6. An attempt was made for Ms. Carias to undergo a paracentesis under IR guidance. However, she declinedthe procedure because of abdominal discomfort. I visited the patient after and she was not cooperating with questions. I discussed with her the importance of obtaining the paracentesis prior to beginning antibiotics and discussed with her the medically indicated need for a blood transfusion, but she did not say anything and closed her eyes. Her partner notes that she has in the past been amenable to blood transfusions. The plan is to transfer her to the GI floor as soon as possible without administering antibiotics in hopes that she agrees to a paracentesis on the floor. ED Course as of 01/09/22 1314 WedJan 09, 2022 0921 Urinalysis with Microscopic: Urine, Straight Catheter(!): Source Urine, Urine, Straight Catheter Color, U [place](!) Clarity Clear 1029 Dipstick, Urine(!): Hemoglobin, QL, U Negative Leukocyte Esterase Negative Nitrite, U Positive(!) Ketones Negative Glucose, U Negative Positive for nitrites. Final Diagnoses: as of 01/09/22 1314 Hepatic Encephalopathy Without Coma (HCC) Jo Ann Cartagena 01/09/22 1315 documented in this encounter Miscellaneous Notes Hospital Course - Colleen Crowell M.D., M.P.H. - 01/10/2022 7:03 AM CDT Ms. Catia Carias is a 31 y.o. female admitted for abdominal pain, confusion, and acute anemia. Medical comorbidities include decompensated alcoholic cirrhosis (diagnosed 01/2021), portal hypertension and splenomegaly, ascites, chronic pancreatitis, chronic pain syndrome, GERD, migraines, anxiety, and depression. Patient presented with an approximately one-week history of worsening abdominal distention, abdominal pain, nausea/vomiting, poor PO intake, and worsening of her chronic back pain. She also had a 1 dayhistory confusion and tremulousness. Of note, for the last few months she has required outpatient paracentesis every 2 weeks. At the time of admission it was about 3 weeks since her last paracentesis. She also has had a few episodes of epistaxis over the past week which is new for her. Per her significant other there was not any recent melena, hematochezia, or hematemesis but patient was unable to provide history herself due to AMS. In the ED, patient was found to have a hemoglobin of 6.2, leukocytosis to 13.6, INR 2.5 (at/below baseline), creatinine 1.5 (baseline around 1.0), bilirubin 20.8 (baseline around 13), ALT/AST/alkaline phosphatase are elevated but appear around baseline. She she had an elevated lactate and was fluid resuscitated. A paracentesis was ordered but patient refused the procedure in the ED. She was transferred to the GI-B Service for further workup and management. On the floor, patient was given 1 unit of pRBC. Paracentesis could not be completed initially due toagitation so patient was started on empiric ceftriaxone due to concern for infection and possible GIbleed in the setting of cirrhosis. Also given BID PPI. She did not respond appropriately to the unitof blood she was given so was started on octreotide due to increased concern for GI bleed. Rifaximinand lactulose were continued. Paracentesis was completed the following morning with fluid studies consistent with spontaneous bacterial peritonitis. Her ceftriaxone was continued for a 5 day course. She was given albumin per standard protocol. Her hemoglobin remained stable. There was no evidence of retroperitoneal hematoma on abdominal ultrasound. A liver ultrasound demonstrated a cirrhotic liver with widely patent hepatic veins. She received a repeat therapeutic paracentesis on 01/13/2022 with 2.7Lof fluid removed. A cell count and differential of ascitic fluid demonstrates resolution of her SBP. The patient had ongoing chronic back pain and was seen by physical therapy on 01/14 who recommended . She was discharged home in stable condition on 01/14. documented in this encounter Plan of Treatment Upcoming Encounters Date Type Specialty Care Team Description Office Visit [facility], 2 Medicine Vernell Perez [address] [place] [phone] Appointment Radiology Matthew Jerome 2 Tyrell Rodriguez M.D. [address] [place] [phone] Hospital Gastroenterology and Matthew Jerome 2 Encounter Hepatology Tyrell Rodriguez M.D. [address] [place] [address] [phone] Surgery Gastroenterology and Matthew Jerome ESOPHAG OGASTRODUODENOSCOPY 2 Hepatology Tyrell Rodriguez, M.D. [address] [place] [phone] Telemedicine Transplant 2 Lab Laboratory Medicine Karin, Olinda Gannon M.D., Ph.D. [address] [place] [phone] Lab Laboratory Medicine Karin, 2 Adeline Gannon M.D., Ph.D. [address] [place] [phone] Office Visit Transplant Karin, Olinda Gannon M.D., Ph.D. [address] [place] [phone] Appointment Radiology Matthew Jerome 2 YVikB.SSuma, Lilian [address] [place] [address] [phone] Appointment Gastroenterology and Adrianne, 2 Hepatology Yeu Burciaga M.D. [address] [place] [phone] Office Visit Gastroenterology and Matthew Jerome 2 Hepatology Joshua RodriguezBSumaB.SSuma, Lilian [address] [place] [address] [phone] Appointment Radiology Matthew Jerome 2 Y MSumaBSumaB.SLilian Moise [address] [place] [address] [phone] Pending Results Name Type Priority Associated Diagnoses Date/Ti me Prepare Red Blood Blood Bank Routine 01/09/2022 9:56 AM CDT Cells, 1 Units Prepare Red Blood Blood Bank Routine 01/09/2022 9:56 AM CDT Cells, 1 Units Prepare Red Blood Blood Bank Routine 01/09/2022 9:56 AM CDT Cells, 1 Units Scheduled Procedures Name Priority Associated Diagnoses Date/Time ESOPHAGOGASTRODUODENOSCOPY Cirrhosis Alc oholic (HCC) 02/10/2022 8:45 AM CDT Hypertension Portal (HCC) Scheduled Referrals Name Type Priority Associated Diagnoses Order S chedule Non-[facility] Outpatient Referral Routine Pain Low Back Ordere d: Health referral Unspecified 01/14/2022 External referral Outpatient Referral Routine Pain Low Back Or dered: PT (non-[facility]) Unspecified 01/14/2022 documented as of this encounter Procedures Procedure Name Priority Date/Time Associated Comments Diagnosis ECG Routine 01/14/2022 11:11 Results for AM CDT this procedure are in the results section. CBC WITHOUT Routine 01/14/2022 8:11 Results for DIFFERENTIAL, B AM CDT this procedu re are in the results section. CBC WITHOUT Routine 01/13/2022 8:42 Results for DIFFERENTIAL, B PM CDT this procedu re are in the results section. COMPREHENSIVE Routine 01/13/2022 8:42 Results for METABOLIC PANEL, S/P PM CDT this pr ocedure are in the results section. US PARACENTESIS WITH RAD - Routine 01/13/2022 3:02 Res ults for IMAGING GUIDANCE (most inpatients PM CDT this pr ocedure and all are in the outpatients) results section. CELL COUNT AND Timed 01/13/2022 2:42 Results fo r DIFFERENTIAL, BF PM CDT this proced ure are in the results section. CBC WITHOUT Routine 01/13/2022 7:09 Results for DIFFERENTIAL, B AM CDT this procedu re are in the results section. COMPREHENSIVE Routine 01/13/2022 7:09 Results for METABOLIC PANEL, S/P AM CDT this pr ocedure are in the results section. HEMOGLOBIN, B Timed 01/12/2022 4:17 Results for AM CDT this procedure are in the results section. BASIC METABOLIC Timed 01/12/2022 4:17 Results f or PANEL, S/P AM CDT this procedure are in the results section. HEMOGLOBIN, B Timed 01/11/2022 4:35 Results for PM CDT this procedure are in the results section. COMPREHENSIVE Routine 01/11/2022 8:36 Results for METABOLIC PANEL, S/P AM CDT this pr ocedure are in the results section. HEMOGLOBIN, B Timed 01/11/2022 6:44 Results for AM CDT this procedure are in the results section. CBC WITHOUT Routine 01/10/2022 10:11 Results for DIFFERENTIAL, B PM CDT this procedu re are in the results section. HEMOGLOBIN, B Timed 01/10/2022 10:11 Results fo r PM CDT this procedure are in the results section. COMPREHENSIVE Routine 01/10/2022 10:11 Results fo r METABOLIC PANEL, S/P PM CDT this pr ocedure are in the results section. HEMOGLOBIN, B Timed 01/10/2022 8:27 Results for PM CDT this procedure are in the results section. TRANSFUSE RED BLOOD Routine 01/10/2022 4:00 CELLS PM CDT DRUG SCREEN URINE Routine 01/10/2022 1:46 Results for PM CDT this procedure are in the results section. HEMOGLOBIN, B Timed 01/10/2022 12:22 Results fo r PM CDT this procedure are in the results section. US LIVER WITH LIVER RAD - Routine 01/10/2022 11:10 Res ults for DOPPLER (most inpatients AM CDT this proced ure and all are in the outpatients) results section. US ABDOMEN LIMITED RAD - Routine 01/10/2022 11:07 Resu lts for (most inpatients AM CDT this proced ure and all are in the outpatients) results section. US PARACENTESIS WITH RAD - Routine 01/10/2022 11:06 Re sults for IMAGING GUIDANCE (most inpatients AM CDT this pr ocedure and all are in the outpatients) results section. PROTEIN, TOTAL, BF Timed 01/10/2022 9:51 Result s for AM CDT this procedure are in the results section. BACTERIAL CULTURE, Timed 01/10/2022 9:51 Result s for AEROBIC + SUSC AM CDT this procedur e are in the results section. CELL COUNT AND Timed 01/10/2022 9:51 Results fo r DIFFERENTIAL, BF AM CDT this proced ure are in the results section. LACTATE Timed 01/10/2022 9:51 Results for DEHYDROGENASE (LD), AM CDT this pro cedure BF are in the results section. GLUCOSE, BODY FLUID Timed 01/10/2022 9:51 Resul ts for AM CDT this procedure are in the results section. AMYLASE, BF Timed 01/10/2022 9:51 Results for AM CDT this procedure are in the results section. ALBUMIN, BODY FLUID Timed 01/10/2022 9:51 Resul ts for AM CDT this procedure are in the results section. HEPATIC FUNCTION Routine 01/10/2022 4:04 Results for PANEL, S AM CDT this procedure are in the results section. SPSMA RESULT Routine 01/10/2022 4:04 Results for AM CDT this procedure are in the results section. CYSTATIN C WITH EGFR Routine 01/10/2022 4:04 Resu lts for AM CDT this procedure are in the results section. CBC WITH Routine 01/10/2022 4:04 Results for DIFFERENTIAL, B AM CDT this procedu re are in the results section. HEMOGLOBIN, B STAT 01/10/2022 4:04 Results for AM CDT this procedure are in the results section. MAGNESIUM, S Routine 01/10/2022 4:04 Results for AM CDT this procedure are in the results section. LACTATE Routine 01/10/2022 4:04 Results for DEHYDROGENASE (LD), AM CDT this pro cedure S are in the results section. HAPTOGLOBIN, S Routine 01/10/2022 4:04 Results fo r AM CDT this procedure are in the results section. COMPREHENSIVE Routine 01/10/2022 4:04 Results for METABOLIC PANEL, S/P AM CDT this pr ocedure are in the results section. TRANSFUSE RED BLOOD Routine 01/10/2022 12:14 CELLS AM CDT HEMOGLOBIN, B Routine 01/09/2022 9:13 Results for PM CDT this procedure are in the results section. LACTATE, B/P Routine 01/09/2022 9:13 Results for PM CDT this procedure are in the results section. TRANSFUSE RED BLOOD Routine 01/09/2022 4:39 CELLS PM CDT DX CHEST PORTABLE 1 RAD - Routine 01/09/2022 4:34 Resu lts for VIEW (most inpatients PM CDT this proced ure and all are in the outpatients) results section. LACTATE, B/P Timed 01/09/2022 3:19 Results for PM CDT this procedure are in the results section. ECG Routine 01/09/2022 2:34 Results for PM CDT this procedure are in the results section. SARS CORONAVIRUS 2, Routine 01/09/2022 1:45 Resul ts for RNA, RAPID POC, V PM CDT this proce dure are in the results section. BACTERIA / RAUDEL STAT 01/09/2022 10:11 Resul ts for CULTURE, BLOOD AM CDT this procedur e are in the results section. HC OSMOLALITY ASSAY STAT 01/09/2022 10:04 Resu lts for URINE AM CDT this procedure are in the results section. DIPSTICK, U STAT 01/09/2022 10:04 Results for AM CDT this procedure are in the results section. PH, RANDOM, U STAT 01/09/2022 10:04 Results fo r AM CDT this procedure are in the results section. MICROSCOPIC MANUAL STAT 01/09/2022 10:04 Resul ts for AM CDT this procedure are in the results section. BACTERIAL CULTURE, STAT 01/09/2022 10:04 Resul ts for AEROBIC + SUSC, AM CDT this procedu re URINE are in the results section. LACTATE, POCT, B STAT 01/09/2022 10:04 Results for AM CDT this procedure are in the results section. GLUCOSE POCT, B STAT 01/09/2022 10:04 Results for AM CDT this procedure are in the results section. BACTERIA / RAUDEL STAT 01/09/2022 10:04 Resul ts for CULTURE, BLOOD AM CDT this procedur e are in the results section. URINALYSIS WITH STAT 01/09/2022 10:04 Results for MICROSCOPIC AM CDT this procedure are in the results section. HEPATIC FUNCTION STAT 01/09/2022 10:03 Results for PANEL, S AM CDT this procedure are in the results section. PROTHROMBIN TIME STAT 01/09/2022 10:03 Results for (PT), P AM CDT this procedure are in the results section. CBC WITH STAT 01/09/2022 10:03 Results for DIFFERENTIAL, B AM CDT this procedu re are in the results section. HUMAN CHORIONIC STAT 01/09/2022 10:02 Results for GONADOTROPIN (HCG), AM CDT this pro cedure EDDI, are in the results section. BASIC METABOLIC STAT 01/09/2022 10:02 Results for PANEL, S/P AM CDT this procedure are in the results section. GLUCOSE POCT, B Routine 01/09/2022 10:01 Results for AM CDT this procedure are in the results section. HC URINALYSIS AUTO Routine 01/09/2022 10:00 Resul ts for WO MICRO AM CDT this procedure are in the results section. AMMONIA STAT 01/09/2022 9:59 Results for AM CDT this procedure are in the results section. PREPARE RED BLOOD Routine 01/09/2022 9:56 CELLS AM CDT PREPARE RED BLOOD Routine 01/09/2022 9:56 CELLS AM CDT PREPARE RED BLOOD Routine 01/09/2022 9:56 CELLS AM CDT TYPE AND SCREEN STAT 01/09/2022 9:56 Results f or AM CDT this procedure are in the results section. LIPASE, S/P Routine 01/09/2022 9:56 Results for AM CDT this procedure are in the results section. LACTATE, POCT, B Routine 01/09/2022 9:53 Results for AM CDT this procedure are in the results section. documented in this encounter Results ECG 12 Lead (01/14/2022 11:11 AM CDT) P athologist Signature Ventricular Rate 81 BPM MUSE ECG/Min TN Interval 146 ms MUSE QRSD Interval 90 ms MUSE QT Interval 408 ms MUSE QTC Interval 473 ms MUSE P [place] 6 degrees MUSE R [place] 55 degrees MUSE T Wave [place] 26 degrees MUSE Specimen Anatomical Collection Method Collection Time Receive d Time (Source) Location / / Volume Laterality 01/14/2022 11:11 01/14/2022 AM CDT 11:21 AM CDT Impressions MUSE - 01/14/2022 11:21 AM CDT Normal sinus rhythm Nonspecific T wave abnormality When compared with ECG of 09-JAN-2022 14 :34, QRS axis shifted left Reviewed by STERLING Sarmiento Narrative This result has an attachment that is no t available. Procedure Note Elijah Roberts M.D. - 01/14/2022Formatt ing of this note might be different from the original. IMPRESSION: Normal sinus rhythm Nonspecific T wave abnormality When compared with ECG of 09-JAN-2022 14 :34, QRS axis shifted left Reviewed by STERLING Sarmiento Colleen Crowell M.D., M.P.H. ECG ORDERABLES Performing Organization Address City/State/ZIP Code Phon e Number MUSE MUSE NA (ABNORMAL) CBC without Differential (01/14/2022 8:11 AM CDT) Patholo gist Method Time Signature Hemoglobin 7.5 (L) 11.6 - 01/14/2022 DTL 15.0 g/dL 9:11 AM CDT Hematocrit 21.9 (L) 35.5 - 01/14/2022 DTL 44.9 % 9:11 AM CDT Erythrocytes 2.10 (L) 3.92 - 01/14/2022 DTL 5.13 9:11 AM CDT x10(12)/L MCV 104.3 (H) 78.2 - 01/14/2022 DTL 97.9 fL 9:11 AM CDT RBC Distrib Width 22.6 (H) 12.2 - 01/14/2022 DTL 16.1 % 9:11 AM CDT Platelet Count 38 (CL) 157 - 371 01/14/2022 DTL x10(9)/L 9:59 AM CDT Leukocytes 5.1 3.4 - 9.6 01/14/2022 DTL x10(9)/L 9:59 AM CDT Specimen Anatomical Collection Method Collection Time Receive d Time (Source) Location / / Volume Laterality Blood (Blood, 01/14/2022 8:11 AM 01/15/20 22 8:47 Venous) CDT AM CDT Colleen Crowell M.D., M.P.H. LAB BLOOD ADD-ON Performing Organization Address City/State/ZIP Code Phon e Number [facility] - [address] [place], [place] [address] [facility] [place] [address] [facility] [address] (ABNORMAL) Comprehensive Metabolic Panel (01/13/2022 8:42 PM CDT) Analysis Performed At Patho logist Time Signature Potassium, S 3.6 3.6 - 5.2 01/13/2022 DTL mmol/L 10:12 PM CDT Sodium, S 139 135 - 145 01/13/2022 DTL mmol/L 10:12 PM CDT Chloride, S 107 98 - 107 01/13/2022 DTL mmol/L 10:12 PM CDT Bicarbonate, S 20 (L) 22 - 29 01/13/2022 DTL mmol/L 10:12 PM CDT Anion Gap 12 7 - 15 01/13/2022 DTL 10:12 PM CDT BUN (Blood Urea 4 (L) 6 - 21 01/13/2022 DTL Nitrogen), S mg/dL 10:12 PM CDT Creatinine 0.46 (L) 0.59 - 01/13/2022 DTL 1.04 mg/dL 10:12 PM CDT Estimated GFR >90 >=60 01/13/2022 DTL (eGFR) mL/min/BSA 10:12 PM CDT Comment: Estimated GFR calculated using the 2020 CKD_EPI creatinine equation. Calcium, Total, S 8.8 8.6 - 10.0 mg/dL 01/13/2022 10:1 2 PM DTL CDT Glucose, S 147 (H) 70 - 140 mg/dL 01/13/2022 10:12 PM DTL CDT Protein, Total, S 4.7 (L) 6.3 - 7.9 g/dL 01/13/2022 10:12 PM DTL CDT Albumin, S 3.6 3.5 - 5.0 g/dL 01/13/2022 10:12 PM DTL CDT Aspartate Aminotransferase 59 (H) 8 - 43 U/L 01/13/2022 1 0:12 PM DTL (AST), S CDT Alkaline Phosphatase, S 253 (H) 35 - 104 U/L 01/13/2022 10 :12 PM DTL CDT Alanine Aminotransferase 24 7 - 45 U/L 01/13/2022 10: 12 PM DTL (ALT), S CDT Bilirubin, Total, S 10.6 (H) <=1.2 mg/dL 01/13/2022 10:12 P M DTL CDT Specimen Anatomical Collection Method Collection Time Receive d Time (Source) Location / / Volume Laterality Blood (Blood, 01/13/2022 8:42 PM 01/14/20 9:33 Venous) CDT PM CDT Anuel Saucedo M.D. LAB BLOOD ADD-ON Performing Organization Address City/State/ZIP Code Phon e Number [facility] - [address] [place] [address] [place] [address] (ABNORMAL) CBC without Differential (01/13/2022 8:42 PM CDT) [facility] gist Method Time Signature Hemoglobin 7.1 (L) 11.6 - 01/13/2022 DTL 15.0 g/dL 9:26 PM CDT Hematocrit 20.9 (L) 35.5 - 01/13/2022 DTL 44.9 % 9:26 PM CDT Erythrocytes 2.02 (L) 3.92 - 01/13/2022 DTL 5.13 9:26 PM CDT x10(12)/L MCV 103.5 (H) 78.2 - 01/13/2022 DTL 97.9 fL 9:26 PM CDT RBC Distrib Width 22.3 (H) 12.2 - 01/13/2022 DTL 16.1 % 9:26 PM CDT Platelet Count 41 (L) 157 - 371 01/13/2022 DTL x10(9)/L 11:15 PM CDT Leukocytes 5.2 3.4 - 9.6 01/13/2022 DTL x10(9)/L 11:15 PM CDT Specimen Anatomical Collection Method Collection Time Receive d Time (Source) Location / / Volume Laterality Blood (Blood, 01/13/2022 8:42 PM 01/14/20 22 9:17 Venous) CDT PM CDT Anuel Saucedo M.D. LAB BLOOD ADD-ON Performing Organization Address City/State/ZIP Code Phon e Number [facility] - [address] [place] [address] [address] [place] [address] [place] Paracentesis with Imaging Guidance (01/13/2022 3:02 PM CDT) Anatomical Region Laterality Modality Abdomen, Ultrasound RST LOS, Ultrasound ARZ LOS, Procedure F LA N/A Ultrasound LOS, Abdominal FLA LOS, Procedural Specimen (Source) Anatomical Collection Method Collection Time Re ceived Time Location / / Volume Laterality 01/13/2022 2:32 PM CDT Impressions 01/13/2022 3:09 PM CDT Ultrasound-guided paracentesis. NR Narrative 01/13/2022 3:09 PM CDT EXAM: US PARACENTESIS WITH IMAGING [...] size: 5 Fr centesis catheter. Volume aspirated: 2765 mL clear yellow f luid Complication: None. Blood loss: None. Purpose: Diagnostic and therapeutic. PATIENT INSTRUCTIONS: Patient may be dis missed from the radiology department when dismissal criteria met. POST-PROCEDURE DIAGNOSIS: Paracentesis c ompleted Procedure Note Sree Lund M.D. - 01/13/2022Formatti ng of this note might be different from the original. EXAM: US PARACENTESIS WITH IMAGING KYLER MANUEL PRE-PROCEDURE: Patient seen and evaluate d. Allergies, [...] size: 5 Fr centesis catheter. Volume aspirated: 2765 mL clear yellow f luid Complication: None. Blood loss: None. Purpose: Diagnostic and therapeutic. PATIENT INSTRUCTIONS: Patient may be dis missed from the radiology department when dismissal criteria met. POST-PROCEDURE DIAGNOSIS: Paracentesis c ompleted IMPRESSION: Ultrasound-guided paracentesis. NR Cornelia Jurado M.D. IMG US PROCEDURES Cell Count and Differential, Body Fluid (01/13/2022 2:42 PM CDT) [facility] Method Time Signature Fluid Type Peritoneal- 01/13/2022 DHPM Paracentesi 5:17 PM CDT s Gross Serous 01/13/2022 DHPM Appearance 5:17 PM CDT Total Nucleated 124 /mcL 01/13/2022 DHPM Cells 5:17 PM CDT Comment: ----REFERENCE VALUE---- Synovial: <150 /mcL Peritoneal: <500 /mcL Pleural: <500 /mcL Pericardial: <500 /mcL ----ADDITIONAL INFORMATION---- This test has been modified from the man ufacturer's instructions. Its performance characteri stics were determined by [facility] in a manner co nsistent with CLIA requirements. This test has not bee n cleared or approved by the U.S. Food and Drug Admin istration. Neutrophils 1 % 01/13/2022 9:37 PM CDT DHPM Comment: ----REFERENCE VALUE---- Synovial: <25% Peritoneal: <25% Pleural: <25% Pericardial: <25% Lymphocytes 85 Synovial <75% % 01/13/2022 9:37 PM CDT DHPM Monocytes/Macrophages 8 Synovial <70% % 01/13/2022 9 :37 PM CDT DHPM Other Cells 6 % 01/13/2022 9:37 PM CDT DHPM Comment: ----REFERENCE VALUE---- The reference range and other method performance specifications have not been established for this bodyfluid. The test result must be integrated into the clinical context for interpretation. Other Cells Are: Mesothelial cells 01/14/2022 7:46 AM CDT DHPM Comment No blasts or malignant cells seen. 01/14 7:46 AM CDT DHPM Reviewed by: Ruth 01/14/2022 7:46 AM CDT DHPM Specimen Anatomical Collection Method Collection Time Receive d Time (Source) Location / / Volume Laterality Fluid 01/13/2022 2:42 PM 3:33 (Peritoneal CDT PM CDT Fluid) Cornelia Jurado M.D. LAB BODY FLUIDS AND STOOLS O RDERABLES Performing Organization Address City/State/ZIP Code Phon e Number [facility] - [address] [place], [place] [address] [address] [place] [address] [facility] 200 [facility] (ABNORMAL) CBC without Differential (01/13/2022 7:09 AM CDT) Patholo gist Method Time Signature Hemoglobin 7.4 (L) 11.6 - 01/13/2022 DTL 15.0 g/dL 8:23 AM CDT Hematocrit 22.0 (L) 35.5 - 01/13/2022 DTL 44.9 % 8:23 AM CDT Erythrocytes 2.13 (L) 3.92 - 01/13/2022 DTL 5.13 8:23 AM CDT x10(12)/L MCV 103.3 (H) 78.2 - 01/13/2022 DTL 97.9 fL 8:23 AM CDT RBC Distrib Width 22.2 (H) 12.2 - 01/13/2022 DTL 16.1 % 8:23 AM CDT Platelet Count 39 (CL) 157 - 371 01/13/2022 DTL x10(9)/L 9:10 AM CDT Comment: Results confirmed by smear, no clumping or interference seen. Leukocytes 4.7 3.4 - 9.6 x10(9)/L 01/13/2022 9:10 AM C DT DTL Specimen Anatomical Collection Method Collection Time Receive d Time (Source) Location / / Volume Laterality Blood (Blood, 01/13/2022 7:09 AM 01/14/20 22 8:08 Venous) CDT AM CDT Cornelia Jurado M.D. LAB BLOOD ADD-ON Performing Organization Address City/State/ZIP Code Phon e Number [facility] - [address] [place], [place] [address] [place] [place] [address] [facility]-[address] (ABNORMAL) Comprehensive Metabolic Panel (01/13/2022 7:09 AM CDT) Analysis Performed At Patho logist Time Signature Potassium, S 3.8 3.6 - 5.2 01/13/2022 DTL mmol/L 8:58 AM CDT Sodium, S 137 135 - 145 01/13/2022 DTL mmol/L 8:58 AM CDT Chloride, S 106 98 - 107 01/13/2022 DTL mmol/L 8:58 AM CDT Bicarbonate, S 21 (L) 22 - 29 01/13/2022 DTL mmol/L 8:58 AM CDT Anion Gap 10 7 - 15 01/13/2022 DTL 8:58 AM CDT BUN (Blood Urea 4 (L) 6 - 21 01/13/2022 DTL Nitrogen), S mg/dL 8:58 AM CDT Creatinine 0.46 (L) 0.59 - 01/13/2022 DTL 1.04 mg/dL 8:58 AM CDT Estimated GFR >90 >=60 01/13/2022 DTL (eGFR) mL/min/BSA 8:58 AM CDT Comment: Estimated GFR calculated using the 2020 CKD_EPI creatinine equation. Calcium, Total, S 9.1 8.6 - 10.0 mg/dL 01/13/2022 8:58 AM CDT DTL Glucose, S 154 (H) 70 - 140 mg/dL 01/13/2022 8:58 AM CDT D TL Protein, Total, S 4.9 (L) 6.3 - 7.9 g/dL 01/13/2022 8:58 A M CDT DTL Albumin, S 3.9 3.5 - 5.0 g/dL 01/13/2022 8:58 AM CDT D TL Aspartate Aminotransferase 60 (H) 8 - 43 U/L 01/13/2022 8 :58 AM CDT DTL (AST), S Alkaline Phosphatase, S 218 (H) 35 - 104 U/L 01/13/2022 8: 58 AM CDT DTL Alanine Aminotransferase 26 7 - 45 U/L 01/13/2022 8:5 8 AM CDT DTL (ALT), S Bilirubin, Total, S 11.5 (H) <=1.2 mg/dL 01/13/2022 8:58 AM CDT DTL Specimen Anatomical Collection Method Collection Time Receive d Time (Source) Location / / Volume Laterality Blood (Blood, 01/13/2022 7:09 AM 01/14/20 22 8:17 Venous) CDT AM CDT Cornelia Jurado M.D. LAB BLOOD ADD-ON Performing Organization Address City/[facility]/ZIP Code Phon e Number [facility] - [address] (ABNORMAL) Hemoglobin (01/12/2022 4:17 AM CDT) P athologist Signature Hemoglobin 7.7 (L) 11.6 - 15.0 01/12/2022 DTL g/dL 4:50 AM CDT Specimen Anatomical Collection Method Collection Time Receive d Time (Source) Location / / Volume Laterality Blood (Blood, 01/12/2022 4:17 AM 01/13/20 22 4:42 Venous) CDT AM CDT Cornelia Jurado M.D. LAB BLOOD ADD-ON Performing Organization Address [facility]/ZIP Code Phon e Number [facility] - [address] (ABNORMAL) Basic Metabolic Panel (01/12/2022 4:17 AM CDT) Analysis Performed At Patho logist Time Signature Potassium, S 3.9 3.6 - 5.2 01/12/2022 DTL mmol/L 5:06 AM CDT Sodium, S 136 135 - 145 01/12/2022 DTL mmol/L 5:06 AM CDT Chloride, S 106 98 - 107 01/12/2022 DTL mmol/L 5:06 AM CDT Bicarbonate, S 19 (L) 22 - 29 01/12/2022 DTL mmol/L 5:06 AM CDT Anion Gap 11 7 - 15 01/12/2022 DTL 5:06 AM CDT BUN (Blood Urea 7 6 - 21 01/12/2022 DTL Nitrogen), S mg/dL 5:06 AM CDT Creatinine 0.50 (L) 0.59 - 01/12/2022 DTL 1.04 mg/dL 5:06 AM CDT Estimated GFR >90 >=60 01/12/2022 DTL (eGFR) mL/min/BSA 5:06 AM CDT Comment: Estimated GFR calculated using the 2020 CKD_EPI creatinine equation. Calcium, Total, S 8.5 (L) 8.6 - 10.0 mg/dL 01/12/2022 5:06 AM CDT DTL Glucose, S 148 (H) 70 - 140 mg/dL 01/12/2022 5:06 AM CDT D TL Specimen Anatomical Collection Method Collection Time Receive d Time (Source) Location / / Volume Laterality Blood (Blood, 01/12/2022 4:17 AM 01/13/20 4:50 Venous) CDT AM CDT Cornelia Jurado M.D. LAB BLOOD ADD-ON Performing Organization Address City/[facility] Phon e Number [facility] - [address] [place] [address] (ABNORMAL) Hemoglobin (01/11/2022 4:35 PM CDT) P athologist Signature Hemoglobin 7.9 (L) 11.6 - 15.0 01/11/2022 DTL g/dL 5:00 PM CDT Specimen Anatomical Collection Method Collection Time Receive d Time (Source) Location / / Volume Laterality Blood (Blood, 01/11/2022 4:35 PM 01/12/20 4:56 Venous) CDT PM CDT Cornelia Jurado M.D. LAB BLOOD ADD-ON Performing Organization Address City/[facility] Phon e Number [facility] - [address] [place] [address] (ABNORMAL) Comprehensive Metabolic Panel (01/11/2022 8:36 AM CDT) P athologist Signature Potassium, S 3.9 3.6 - 5.2 01/11/2022 DTL mmol/L 10:01 AM CDT Sodium, S 137 135 - 145 01/11/2022 DTL mmol/L 10:01 AM CDT Chloride, S 107 98 - 107 01/11/2022 DTL mmol/L 10:01 AM CDT Bicarbonate, S 16 (L) 22 - 29 01/11/2022 DTL mmol/L 10:01 AM CDT Anion Gap 14 7 - 15 01/11/2022 DTL 10:01 AM CDT BUN (Blood Urea 15 6 - 21 01/11/2022 DTL Nitrogen), S mg/dL 10:01 AM CDT Creatinine 0.71 0.59 - 01/11/2022 DTL 1.04 mg/dL 10:01 AM CDT Estimated GFR >90 >=60 01/11/2022 DTL (eGFR) mL/min/BSA 10:01 AM CDT Comment: Estimated GFR calculated using the 2020 CKD_EPI creatinine equation. Calcium, Total, S 8.8 8.6 - 10.0 mg/dL 01/11/2022 10:0 1 AM DTL CDT Glucose, S 147 (H) 70 - 140 mg/dL 01/11/2022 10:01 AM DTL CDT Protein, Total, S 5.0 (L) 6.3 - 7.9 g/dL 01/11/2022 10:01 AM DTL CDT Albumin, S 4.1 3.5 - 5.0 g/dL 01/11/2022 10:01 AM DTL CDT Aspartate Aminotransferase 47 (H) 8 - 43 U/L 01/11/2022 1 0:01 AM DTL (AST), S CDT Alkaline Phosphatase, S 183 (H) 35 - 104 U/L 01/11/2022 10 :01 AM DTL CDT Alanine Aminotransferase 23 7 - 45 U/L 01/11/2022 10: 01 AM DTL (ALT), S CDT Bilirubin, Total, S 12.5 (H) <=1.2 mg/dL 01/11/2022 10:01 A M DTL CDT Specimen Anatomical Collection Method Collection Time Receive d Time (Source) Location / / Volume Laterality Blood (Blood, 01/11/2022 8:36 AM 01/12/20 22 9:45 Venous) CDT AM CDT Cornelia Jurado M.D. LAB BLOOD ADD-ON Performing Organization Address City/State/ZIP Code Phon e Number [facility] - [address] [place], [place] [address] [facility] [place] [address] [facility] [address] (ABNORMAL) Hemoglobin (01/11/2022 6:44 AM CDT) athologist Signature Hemoglobin 7.4 (L) 11.6 - 15.0 01/11/2022 DTL g/dL 7:29 AM CDT Specimen Anatomical Collection Method Collection Time Receive d Time (Source) Location / / Volume Laterality Blood (Blood, 01/11/2022 6:44 AM 01/12/20 7:20 Venous) CDT AM CDT Colleen Crowell M.D., M.P.H. LAB BLOOD ADD-ON Performing Organization Address City/[facility] Phon e Number [facility] - [address] [place], [place] [address] [address] [place], [place] [address] [place] [address] (ABNORMAL) Hemoglobin (01/10/2022 10:11 PM CDT) athologist Signature Hemoglobin 7.9 (L) 11.6 - 15.0 01/10/2022 DTL g/dL 10:30 PM CDT Specimen Anatomical Collection Method Collection Time Receive d Time (Source) Location / / Volume Laterality Blood (Blood, 01/10/2022 10:11 01/10/2022 Venous) PM CDT 10:24 PM CDT Colleen Crowell M.D., M.P.H. LAB BLOOD ADD-ON Performing Organization Address City/[facility] Phon e Number [facility] - [address] [place], [place] [address] [place] [address] (ABNORMAL) Comprehensive Metabolic Panel (01/10/2022 10:11 PM CDT) athologist Signature Potassium, S 4.3 3.6 - 5.2 01/10/2022 DTL mmol/L 11:19 PM CDT Sodium, S 137 135 - 145 01/10/2022 DTL mmol/L 11:19 PM CDT Chloride, S 109 (H) 98 - 107 01/10/2022 DTL mmol/L 11:19 PM CDT Bicarbonate, S 16 (L) 22 - 29 01/10/2022 DTL mmol/L 11:19 PM CDT Anion Gap 12 7 - 15 01/10/2022 DTL 11:19 PM CDT BUN (Blood Urea 23 (H) 6 - 21 01/10/2022 DTL Nitrogen), S mg/dL 11:19 PM CDT Creatinine 0.81 0.59 - 01/10/2022 DTL 1.04 mg/dL 11:36 PM CDT Estimated GFR >90 >=60 01/10/2022 DTL (eGFR) mL/min/BSA 11:36 PM CDT Comment: Estimated GFR calculated using the 2020 CKD_EPI creatinine equation. Calcium, Total, S 8.6 8.6 - 10.0 mg/dL 01/10/2022 11:1 9 PM DTL CDT Glucose, S 203 (H) 70 - 140 mg/dL 01/10/2022 11:19 PM DTL CDT Protein, Total, S 4.2 (L) 6.3 - 7.9 g/dL 01/10/2022 11:19 PM DTL CDT Albumin, S 3.0 (L) 3.5 - 5.0 g/dL 01/10/2022 11:19 PM DTL CDT Aspartate Aminotransferase 50 (H) 8 - 43 U/L 01/10/2022 1 1:19 PM DTL (AST), S CDT Alkaline Phosphatase, S 196 (H) 35 - 104 U/L 01/10/2022 11 :19 PM DTL CDT Alanine Aminotransferase 27 7 - 45 U/L 01/10/2022 11: 19 PM DTL (ALT), S CDT Bilirubin, Total, S 15.7 (H) <=1.2 mg/dL 01/10/2022 11:19 P M DTL CDT Specimen Anatomical Collection Method Collection Time Receive d Time (Source) Location / / Volume Laterality Blood (Blood, 01/10/2022 10:11 01/10/2022 Venous) PM CDT 10:39 PM CDT Colleen Crowell M.D., M.P.H. LAB BLOOD ADD-ON Performing Organization Address City/State/ZIP Code Phon e Number [facility] - [address] [place], [place] [address] [facility] [place] [address] [facility] [address] (ABNORMAL) CBC without Differential (01/10/2022 10:11 PM CDT) Patholo gist Method Time Signature Hemoglobin 7.7 (L) 11.6 - 01/10/2022 DTL 15.0 g/dL 10:31 PM CDT Hematocrit 22.8 (L) 35.5 - 01/10/2022 DTL 44.9 % 10:31 PM CDT Erythrocytes 2.27 (L) 3.92 - 01/10/2022 DTL 5.13 10:31 PM CDT x10(12)/L MCV 100.4 (H) 78.2 - 01/10/2022 DTL 97.9 fL 10:31 PM CDT RBC Distrib Width 22.1 (H) 12.2 - 01/10/2022 DTL 16.1 % 10:31 PM CDT Platelet Count 42 (L) 157 - 371 01/10/2022 DTL x10(9)/L 10:31 PM CDT Leukocytes 6.7 3.4 - 9.6 01/10/2022 DTL x10(9)/L 10:31 PM CDT Specimen Anatomical Collection Method Collection Time Receive d Time (Source) Location / / Volume Laterality Blood (Blood, 01/10/2022 10:11 01/10/2022 Venous) PM CDT 10:24 PM CDT Colleen Crowell M.D., M.P.H. LAB BLOOD ADD-ON Performing Organization Address City/State/ZIP Code Phon e Number [facility] - [address] [place] [address] [facility] [place] [address] [facility] (ABNORMAL) Hemoglobin (01/10/2022 8:27 PM CDT) P athologist Signature Hemoglobin 7.7 (L) 11.6 - 15.0 01/10/2022 DTL g/dL 8:47 PM CDT Specimen Anatomical Collection Method Collection Time Receive d Time (Source) Location / / Volume Laterality Blood (Blood, 01/10/2022 8:27 PM 01/11/20 8:41 Venous) CDT PM CDT Colleen Crowell M.D., M.P.H. LAB BLOOD ADD-ON Performing Organization Address City/[facility] Phon e Number [facility] - [address] Transfuse Red Blood Cells : (01/10/2022 8:08 PM CDT) Colleen Crowell M.D., M.P.H. BLOOD TRANSFUSION ORDERABL ES Transfuse Red Blood Cells : , 1 Units (01/10/2022 8:08 PM CDT) Colleen Crowell M.D., M.P.H. BLOOD TRANSFUSION ORDERABL ES Drug Screen Urine (01/10/2022 1:46 PM CDT) athologist Signature Ethanol, Negative NEGATIVE 01/10/2022 DTL [...] Laterality Urine (Urine, 01/10/2022 1:46 PM 01/11/20 2:17 Midstream) CDT PM CDT Cornelia Jurado M.D. LAB URINE ORDERABLES Performing Organization Address City/State/ZIP Code Phon e Number [facility] - [address] [place], [place] [address] [place] [address] (ABNORMAL) Hemoglobin (01/10/2022 12:22 PM CDT) P athologist Signature Hemoglobin 6.4 (L) 11.6 - 15.0 01/10/2022 PM g/dL 1:29 PM CDT Specimen Anatomical Collection Method Collection Time Receive d Time (Source) Location / / Volume Laterality Blood (Blood, 01/10/2022 12:22 01/10/2022 Venous) PM CDT 12:46 PM CDT Cornelia Jurado M.D. LAB BLOOD ADD-ON Performing Organization Address City/State/ZIP Code Phon e Number [facility] - [address] [place], [place] [address] [place] [address] [facility] [address] US Liver with Liver Doppler (01/10/2022 [...] also patent, however there is slow flow. oCrnelia Jurado M.D. IMG US PROCEDURES US Abdomen [...] amount of ascites persists following paracentesis. Cornelia PERALES US PROCEDURES US Paracentesis with Imaging Guidance (01/10/2022 11:06 AM CDT) Anatomical Region Laterality Modality Abdomen, Ultrasound RST LOS, Ultrasound ARZ LOS, Procedure F LA N/A Ultrasound LOS, Abdominal FLA LOS, Procedural Specimen (Source) Anatomical Collection Method Collection Time Re ceived Time Location / / Volume Laterality 01/10/2022 10:23 AM CDT Impressions 01/10/2022 11:33 AM CDT Ultrasound-guided paracentesis. CP Narrative 01/10/2022 11:33 AM CDT EXAM: US PARACENTESIS WITH IMAGING [...] size: 5 Fr centesis catheter. Volume aspirated: 4065 mL of clear yello w fluid. Small amount of residual ascites despite catheter manipulation. Complication: None. Blood loss: None. Purpose: Diagnostic and therapeutic. Per itoneal fluid was sent for requested laboratory analysis. PATIENT INSTRUCTIONS: Patient may be dis missed from the radiology department when dismissal criteria met. POST-PROCEDURE DIAGNOSIS: Ascites. Procedure Note Gerard Hutton M.D. - 01/10/2022Format ting of this note might be different from the original. EXAM: US PARACENTESIS WITH IMAGING KYLER NCE PRE-PROCEDURE: Patient seen and evaluate d. Allergies, [...] size: 5 Fr centesis catheter. Volume aspirated: 4065 mL of clear yello w fluid. Small amount of residual ascites despite catheter manipulation. Complication: None. Blood loss: None. Purpose: Diagnostic and therapeutic. Per itoneal fluid was sent for requested laboratory analysis. PATIENT INSTRUCTIONS: Patient may be dis missed from the radiology department when dismissal criteria met. POST-PROCEDURE DIAGNOSIS: Ascites. IMPRESSION: Ultrasound-guided paracentesis. CP Cornelia Jurado M.D. IMG US PROCEDURES Amylase, Body Fluid (01/10/2022 9:51 AM CDT) [...] atio <1.0. All other fluids refer to [email or web address] for further inter pretive information. This test has been modified from the man ufacturer's instructions. Its performance characteri stics were determined by [facility] in a manner consistent wi CLIA requirements. [...] Address City/State/ZIP Code Phon e Number [facility] - [address] [place], [place] [address] [facility] [place] [address] [facility] [address] Albumin, Body Fluid (01/10/2022 9:51 AM CDT) athologist Signature Albumin BF 0.3 See Comment [...] process. ?? All other fluids refer to [email or web address] for further interpretive information. This t est has been modified from the deputy jailer's instruc tions. Its performance characteristics were determi [...] Address City/State/ZIP Code Phon e Number [facility] - [address] [place], [place] [address] [place] [place] [address] [facility] [address] Lactate Dehydrogenase (LD), Body Fluid (01/10/2022 9:51 AM CDT) [facility] Method Time Signature Lactate 41 See [...] clinical findings. All other fluids refer to [email or web address] for further interpretive information. This test has been modified from the man ufacturer's instructions. Its performance characteristics were det ermined by [facility] in a manner consistent with CLIA requirements [...] Jurado M.D. LAB BODY FLUIDS AND STOOLS Marylou GARCIA Performing Organization Address City/[facility] Code Phon e Number [facility] - [address] [place], [place] [address] [facility] [place] [address] [facility] [address] Protein, Total, Body Fluid (01/10/2022 9:51 AM CDT) P athologist Signature Protein, 0.4 See Comment 01/10/2022 DTL Total, BF g/dL 1:37 PM CDT Comment: ----ADDITIONAL INFORMATION---- A pleural [...] ical findings. All other fluids refer to [email or web address] for further inter pretive information. This test has been modified from the deputy jailer's instructions. Its perform ance characteristics were determined by [facility] in a manner consistent with CLIA require ments. This test has not been cleared or approv ed by the U.S. Food and Drug Administration. Fluid Type, Protein, Total Fluid, Peritoneal Fluid 01/10/2022 11:17 AM CDT DTL Specimen Anatomical Collection Method Collection Time Receive d Time (Source) Location / / Volume Laterality Fluid 01/10/2022 9:51 AM 2 (Peritoneal CDT 11:51 AM CDT Fluid) Cornelia Jurado M.D. LAB BODY FLUIDS AND STOOLS Marylou GARCIA Performing Organization Address City/[facility] Code Phon e Number [facility] - [address] [facility], [place] [address] [facility] [place] [address] [facility] 200 [facility] Glucose, Body Fluid (01/10/2022 9:51 AM CDT) P athologist Signature Glucose, BF 101 See Comment [...] of infection. All other fluids refer to [email or web address] for further inter pretive information. This test has been modified from the man ufacturer's instructions. Its performance characteri stics were determined by [facility] in a manner co nsistent with CLIA requirements. This test has not been norah ared or approved by the U.S. Food and Drug Administration. Fluid Type, Glucose Fluid, Peritoneal Fluid 2021 11:17 AM CDT DT Specimen Anatomical Collection Method Collection Time Receive d Time (Source) Location / / Volume Laterality Fluid 01/10/2022 9:51 AM 2 (Peritoneal CDT 11:51 AM CDT Fluid) Cornelia Jurado M.D. LAB BODY FLUIDS AND STOOLS O RDERABLES Performing Organization Address City/State/ZIP Code Phon e Number [facility] - [address] [place], [place] [address] [place] [place] [address] [address] Bacterial Culture, Aerobic + Susc (01/10/2022 9:51 AM CDT) Patholo gist Method Time Signature Bacterial No growth 01/15/2022 DTL Culture, after 5 8:05 AM CDT Aerobic + Susc days of incubation. Specimen Anatomical Collection Method Collection Time Receive d Time (Source) Location / / Volume Laterality Fluid 01/10/2022 9:51 AM 2 (Peritoneal CDT 11:24 AM CDT Fluid) Comment: Specimen Source Site: Fluid Narrative [facility] - [facility] - 01/15/2022 8:05 AM CDT Bacterial Culture: Received Bactec aerob ic and Bactec anaerobic bottles Cornelia Jurado M.D. LAB MICROBIOLOGY - GENERAL O RDERABLES Performing Organization Address City/State/ZIP Code Phon e Number [facility] - [address] [place] [address] [facility] [place] [address] [facility] 200 [facility] Cell Count and Differential, Body Fluid (01/10/2022 9:51 AM CDT) [facility] Method Time Signature Fluid Type Peritoneal- 01/10/2022 DHPM Paracentesi 11:46 AM CDT s Gross Serous 01/10/2022 DHPM Appearance 11:46 AM CDT Total Nucleated 1047 /mcL 01/10/2022 DHPM Cells 11:46 AM CDT Comment: ----REFERENCE VALUE---- Synovial: <150 /mcL Peritoneal: <500 /mcL Pleural: <500 /mcL Pericardial: <500 /mcL ----ADDITIONAL INFORMATION---- This test has been modified from the man ufacturer's instructions. Its performance characteri stics were determined by [facility] in a manner co nsistent with CLIA requirements. This test has not bee n cleared or approved by the U.S. Food and Drug Admin istration. Neutrophils 74 % 01/11/2022 12:16 AM CDT DHPM Comment: ----REFERENCE VALUE---- Synovial: <25% Peritoneal: <25% Pleural: <25% Pericardial: <25% Lymphocytes 5 Synovial <75% % 01/11/2022 12:16 AM CD T DHPM Monocytes/Macrophages 17 Synovial <70% % 01/11/2022 1 2:16 AM CDT DHPM Other Cells 4 % 01/11/2022 12:16 AM CDT DHPM Comment: ----REFERENCE VALUE---- The reference range and other method performance specifications have not been established for this bodyfluid. The test result must be integrated into the clinical context for interpretation. Other Cells Are: Mesothelial cells 01/11/2022 5:44 AM CDT [facility] Comment SeeComment 01/11/2022 5:44 AM CDT [facility] Comment: No blasts or malignant cells se en. Degenerative neutrophils present. Reviewed by: Ruth 01/11/2022 5:44 AM CDT [facility] Specimen Anatomical Collection Method Collection Time Receive d Time (Source) Location / / Volume Laterality Fluid 01/10/2022 9:51 AM 2 (Peritoneal CDT 11:28 AM CDT Fluid) Cornelia Jurado M.D. LAB BODY FLUIDS AND STOOLS O RDERABLES Performing Organization Address City/[facility] Phon e Number [facility] - [address] (ABNORMAL) Hemoglobin (01/10/2022 4:04 AM CDT) P athologist Signature Hemoglobin 7.9 (L) 11.6 - 15.0 01/10/2022 STMA g/dL 4:31 AM CDT Specimen Anatomical Collection Method Collection Time Receive d Time (Source) Location / / Volume Laterality Blood (Blood, 01/10/2022 4:04 AM 01/11/20 4:29 Venous) CDT AM CDT Cornelia Jurado M.D. LAB BLOOD ADD-ON Performing Organization Address City/[facility] Phon e Number [facility] - [address] [place] [phone] [facility] STMA [address] (ABNORMAL) Comprehensive Metabolic Panel (01/10/2022 4:04 AM CDT) Analysis Performed At Patho logist Time Signature Potassium, S 5.2 3.6 - 5.2 01/10/2022 DTL mmol/L 5:18 AM CDT Sodium, S 138 135 - 145 01/10/2022 DTL mmol/L 5:18 AM CDT Chloride, S 108 (H) 98 - 107 01/10/2022 DTL mmol/L 5:18 AM CDT Bicarbonate, S 17 (L) 22 - 29 01/10/2022 DTL mmol/L 5:18 AM CDT Anion Gap 13 7 - 15 01/10/2022 DTL 5:18 AM CDT BUN (Blood Urea 34 (H) 6 - 21 01/10/2022 DTL Nitrogen), S mg/dL 5:18 AM CDT Creatinine 1.16 (H) 0.59 - 01/10/2022 DTL 1.04 mg/dL 6:41 AM CDT Estimated GFR 65 >=60 01/10/2022 DTL (eGFR) mL/min/BSA 6:41 AM CDT Comment: Estimated GFR calculated using the 2020 CKD_EPI creatinine equation. Calcium, Total, S 9.6 8.6 - 10.0 mg/dL 01/10/2022 7:01 AM CDT DTL Glucose, S 108 70 - 140 mg/dL 01/10/2022 5:18 AM CDT D TL Protein, Total, S CANCELED g/dL 01/10/2022 6:33 AM CDT DTL Comment: Duplicate test request. Result canceled by the ancillary. Albumin, S 3.6 3.5 - 5.0 g/dL 01/10/2022 5:18 AM CDT D TL Aspartate Aminotransferase 62 (H) 8 - 43 U/L 01/10/2022 5 :18 AM CDT DTL (AST), S Alkaline Phosphatase, S 227 (H) 35 - 104 U/L 01/10/2022 5: 18 AM CDT DTL Alanine Aminotransferase 32 7 - 45 U/L 01/10/2022 5:1 8 AM CDT DTL (ALT), S Bilirubin, Total, S 22.6 (H) <=1.2 mg/dL 01/10/2022 5:18 AM CDT DTL Specimen Anatomical Collection Method Collection Time Receive d Time (Source) Location / / Volume Laterality Blood (Blood, 01/10/2022 4:04 AM 01/11/20 4:54 Venous) CDT AM CDT Cornelia Jurado M.D. LAB BLOOD ADD-ON Performing Organization Address City/State/ZIP Code Phon e Number [facility] - [address] [place], [place] [address] [facility] [place] [address] [facility] [address] (ABNORMAL) CBC with Differential, Blood (01/10/2022 4:04 AM CDT) [facility] Method Time Signature Hemoglobin 7.8 (L) 11.6 - 01/10/2022 DTL 15.0 g/dL 4:52 AM CDT Hematocrit 23.2 (L) 35.5 - 01/10/2022 DTL 44.9 % 4:52 AM CDT Erythrocytes 2.19 (L) 3.92 - 01/10/2022 DTL 5.13 4:52 AM CDT x10(12)/L MCV 105.9 (H) 78.2 - 01/10/2022 DTL 97.9 fL 4:52 AM CDT RBC Distrib Width 19.9 (H) 12.2 - 01/10/2022 DTL 16.1 % 4:52 AM CDT Platelet Count 54 (L) 157 - 371 01/10/2022 DTL x10(9)/L 4:52 AM CDT Leukocytes 8.7 3.4 - 9.6 01/10/2022 DTL x10(9)/L 4:52 AM CDT Neutrophils 6.61 (H) 1.56 - 01/10/2022 DTL 6.45 4:52 AM CDT x10(9)/L Lymphocytes 1.17 0.95 - 01/10/2022 DTL 3.07 4:52 AM CDT x10(9)/L Monocytes 0.81 0.26 - 01/10/2022 DTL 0.81 4:52 AM CDT x10(9)/L Eosinophils 0.04 0.03 - 01/10/2022 DTL 0.48 4:52 AM CDT x10(9)/L Basophils 0.03 0.01 - 01/10/2022 DTL 0.08 4:52 AM CDT x10(9)/L Specimen Anatomical Collection Method Collection Time Receive d Time (Source) Location / / Volume Laterality Blood (Blood, 01/10/2022 4:04 AM 01/11/20 22 4:37 Venous) CDT AM CDT Cornelia Jurado M.D. LAB BLOOD ADD-ON Performing Organization Address City/State/ZIP Code Phon e Number [facility] - [address] [place], [place] [address] [place] [place] [address] [address] (ABNORMAL) Cystatin C with Estimated GFR (01/10/2022 4:04 AM CDT) P athologist Signature eGFR by 38 (L) >60 01/10/2022 DTL Cystatin C mL/min/BSA 5:18 AM CDT Comment: Estimated GFR calculated using [...] lower with the new assay. Cystatin C 1.77 (H) 0.63 - 1.03 mg/L 01/10/2022 5:18 AM CDT DTL Specimen Anatomical Collection Method Collection Time Receive d Time (Source) Location / / Volume Laterality Blood (Blood, 01/10/2022 4:04 AM 01/11/20 4:54 Venous) CDT AM CDT Cornelia Jurado M.D. LAB BLOOD ADD-ON Performing Organization Address City/State/ZIP Code Phon e Number [facility] - [address] [place] [address] [place] [address] [address] (ABNORMAL) Hepatic Function Panel (01/10/2022 4:04 AM CDT) Patholo gist Method Time Signature Bilirubin, Total, S 22.5 (H) <=1.2 01/10/2022 DTL mg/dL 5:15 AM CDT Bilirubin, Direct, S 11.0 (H) 0.0 - 0.3 01/10/2022 DTL mg/dL 6:41 AM CDT Aspartate 63 (H) 8 - 43 01/10/2022 DTL Aminotransferase U/L 5:15 AM CDT (AST), S Alanine 32 7 - 45 01/10/2022 DTL Aminotransferase U/L 5:15 AM CDT (ALT), S Alkaline 229 (H) 35 - 104 01/10/2022 DTL Phosphatase, S U/L 5:15 AM CDT Albumin, S 3.7 3.5 - 5.0 01/10/2022 DTL g/dL 5:15 AM CDT Protein, Total, S 4.9 (L) 6.3 - 7.9 01/10/2022 DTL g/dL 6:41 AM CDT Specimen Anatomical Collection Method Collection Time Receive d Time (Source) Location / / Volume Laterality Blood (Blood, 01/10/2022 4:04 AM 01/11/20 22 4:55 Venous) CDT AM CDT Cornelia Jurado M.D. LAB BLOOD ADD-ON Performing Organization Address City/[facility] Phon e Number [facility] [address] [place], [place] [address] [place], [place] [id number] [place] [address] [address] [facility] (ABNORMAL) Haptoglobin (01/10/2022 4:04 AM CDT) [facility] Haptoglobin, S <14 (L) 30 - 200 01/13/2022 [facility] mg/dL 1:56 PM CDT Specimen Anatomical Collection Method Collection Time Receive d Time (Source) Location / / Volume Laterality Blood (Blood, 01/10/2022 4:04 AM 01/13/20 22 6:42 Venous) CDT AM CDT Cornelia Jurado M.D. LAB BLOOD ADD-ON Performing Organization Address City/State/ZIP Code Phon e Number [facility] [address] [place], [place] [address] [place] [address] [place] (ABNORMAL) LD (Lactate Dehydrogenase) (01/10/2022 4:04 AM CDT) [facility] Monica 236 (H) 122 - 222 01/10/2022 DTL LD U/L 5:08 AM CDT Specimen Anatomical Collection Method Collection Time Receive d Time (Source) Location / / Volume Laterality Blood (Blood, 01/10/2022 4:04 AM 01/11/20 22 4:46 Venous) CDT AM CDT Cornelia Jurado M.D. LAB BLOOD NON ADD-ON Performing Organization Address City/State/ZIP Code Phon e Number [facility] - [address] [place], [place] [address] [facility] [place] [address] [facility] [address] [address] [facility] (ABNORMAL) SPSMA Result (01/10/2022 4:04 AM CDT) [facility] Method Time Signature Neutrophilic Segs 76 (H) 50 - 75 % 01/10/2022 [facility] and Bands 8:26 AM CDT Lymphocytes 17 (L) 18 - 42 % 01/10/2022 [facility] 8:26 AM CDT Monocytes 5 2 - 11 % 01/10/2022 [facility] 8:26 AM CDT Metamyelocytes 1 (H) <1 % 01/10/2022 [facility] 8:26 AM CDT Myelocytes 1 (H) <0.5 % 01/10/2022 [facility] 8:26 AM CDT Nucleated RBC 2 /100 WBC 01/10/2022 [facility] 8:26 AM CDT Manual Absolute 6.61 (H) 1.56 - 01/10/2022 [facility] Neutrophil Count 6.45 8:26 AM CDT x10(9)/L Comment: ----ADDITIONAL INFORMATION---- The manual absolute neutrophil count is derived from a manual differential count and therefore is not exactly comparable to the automated absolute armida trophil count. Interpretation SeeComment 01/10/2022 8:26 AM CDT D HPM Comment: No morphologic features of hemo lysis are seen. Reviewed by: Tech 01/10/2022 8:26 AM CDT [facility] Specimen Anatomical Collection Method Collection Time Receive d Time (Source) Location / / Volume Laterality Blood (Blood, 01/10/2022 4:04 AM 01/11/20 4:37 Venous) CDT AM CDT Cornelia Jurado M.D. LAB BLOOD ADD-ON Performing Organization Address City/State/[facility] Code Phon e Number [facility] - [address] [place], [place] [address] [facility] [place] [place] [address] [facility] [address] Magnesium (01/10/2022 4:04 AM CDT) athologist Signature Magnesium, S 1.9 1.7 - 2.3 01/10/2022 DTL mg/dL 5:18 AM CDT Specimen Anatomical Collection Method Collection Time Receive d Time (Source) Location / / Volume Laterality Blood (Blood, 01/10/2022 4:04 AM 01/11/20 4:54 Venous) CDT AM CDT Cornelia Jurado M.D. LAB BLOOD ADD-ON Performing Organization Address City/State/[facility] Phon e Number [facility] - [address] [place], [place] [address] [place] [place] [address] [facility] 200 [facility] Transfuse Red Blood Cells : (01/10/2022 1:51 AM CDT) Cornelia Jurado M.D. BLOOD TRANSFUSION ORDERABLES Transfuse Red Blood Cells : , 1 Units (01/10/2022 1:51 AM CDT) Cornelia Jurado M.D. BLOOD TRANSFUSION ORDERABLES Lactate (01/09/2022 9:13 PM CDT) athologist Signature Lactate, P 1.5 0.5 - 2.2 01/09/2022 DTL mmol/L 10:28 PM CDT Specimen Anatomical Collection Method Collection Time Receive d Time (Source) Location / / Volume Laterality Blood (Blood, 01/09/2022 9:13 PM 01/10/20 22 Venous) CDT 10:06 PM CDT Cornelia Jurado M.D. LAB BLOOD NON ADD-ON Performing Organization Address City/State/[facility] Code Phon e Number [facility] - [address] [place], [place] [address] [facility] [place] [address] [facility] [address] [facility] (ABNORMAL) Hemoglobin (01/09/2022 9:13 PM CDT) athologist Signature Hemoglobin 6.6 (L) 11.6 - 15.0 01/09/2022 DTL g/dL 11:14 PM CDT Specimen Anatomical Collection Method Collection Time Receive d Time (Source) Location / / Volume Laterality Blood (Blood, 01/09/2022 9:13 PM 01/10/20 22 9:40 Venous) CDT PM CDT Cornelia Jurado M.D. LAB BLOOD ADD-ON Performing Organization Address City/State/ZIP Code Phon e Number [facility] - [address] [place], [place] [address] [facility] [place] [address] [facility] [address] Transfuse Red Blood Cells : (01/09/2022 7:21 PM CDT) Leslie Gupta M.D. BLOOD TRANSFUSION ORDERA BLES Transfuse Red Blood Cells : , 1 Units (01/09/2022 7:21 PM CDT) Leslie Gupta M.D. BLOOD TRANSFUSION ORDERA BLES DX Chest Portable 1 View (01/09/2022 4:34 [...] Jurado M.D. IMG DIAGNOSTIC IMAGING PROCE DURES (ABNORMAL) Lactate (01/09/2022 3:19 PM CDT) P athologist Signature Lactate, P 2.9 (H) 0.5 - 2.2 01/09/2022 STMA mmol/L 3:48 PM CDT Specimen Anatomical Collection Method Collection Time Receive d Time (Source) Location / / Volume Laterality Blood (Blood, 01/09/2022 3:19 PM 01/10/20 3:27 Venous) CDT PM CDT Wilfredo Vigil P.A.-C. LAB BLOOD NON ADD-ON Performing Organization Address City/[facility]/ZIP Code Phon e Number [facility] - [address] [place], [place] [address] [facility] [place] [address] [facility] 200 [facility] ECG 12 Lead (01/09/2022 2:34 PM CDT) P athologist Signature Ventricular Rate 108 BPM MUSE ECG/Min TN Interval 158 ms MUSE QRSD Interval 86 ms MUSE QT Interval 360 ms MUSE QTC Interval 482 ms MUSE P [place] 85 degrees MUSE R [place] 117 degrees MUSE T Wave [place] 84 degrees MUSE Specimen Anatomical Collection Method Collection Time Receive d Time (Source) Location / / Volume Laterality 01/09/2022 2:34 PM 2:49 CDT PM CDT Impressions MUSE - 01/09/2022 2:49 PM CDT Sinus tachycardia Right axis deviation Nonspecific ST and T wave abnormality When compared with ECG of 09-NOV-2021 22 :47, QRS axis shifted right Reviewed by STERLING García Narrative This result has an attachment that is no t available. Procedure Note Jony Fox Jr., M.D. - 01/09/2022For matting of this note might be different from the original. IMPRESSION: Sinus tachycardia Right axis deviation Nonspecific ST and T wave abnormality When compared with ECG of 09-NOV-2021 22 :47, QRS axis shifted right Reviewed by STERLING García Cornelia Jurado M.D. ECG ORDERABLES Performing Organization Address City/[facility]/ZIP Code Phon e Number MUSE MUSE NA SARS Coronavirus 2, RNA, Rapid POC, V Asymptomatic (01/09/2022 1:45 PM CDT) Patholo gist Method Time Signature SARS Undetected Undetected 01/09/2022 DTLR Coronavirus-2 2:05 PM CDT , RNA, Rapid POC, V Comment: Negative for SARS-CoV-2. The C[employer] COVID-19 test is a molecular jonathan t for SARS-CoV-2, the virus that causes COVID- 19. A Negative result means that the [employer] COV ID-19 test did not detect SARS-CoV-2 virus in your sample. [employer] COVID-19 test uses the [employer] Mo nitoring System. This test has received Emergency Use Authorization (EUA) by the U.S. Food and Drug Administration (FDA) and is used per man ufacturer instructions. Performance characteristic s were verified by [facility] in a manner consistent with CLIA requirements. Fact sheets for this Emerg ency Use Authorization (EUA) can be found at the following links: Providers: [email or web address]://[email or web address]/prov [email or web address] Patients: [email or web address] SARS Coronavirus 2, Source Nasopharynx DEFAULT 01/09/2022 2:05 PM CDT DTLR Specimen Anatomical Collection Method Collection Time Receive d Time (Source) Location / / Volume Laterality Varies 01/09/2022 1:45 PM 2 1:45 (Nasopharynx) CDT PM CDT Reese Reyes M.D. LAB MICROBIOLOGY - GENERAL O RDERABLES Performing Organization Address City/[facility]/ZIP Code Phon e Number PERFORMING LABS, REF [place] [address] INTERFACE Ref Interface [address] [facility] DT Performing Labs, [place] [address] Interface 200 [facility] Bacteria / Raudel Culture, Blood # 2 (01/09/2022 10:11 AM CDT) [facility] Method Time Signature Bacteria/Adriana No growth 01/14/2022 DTL da Culture, after 5 11:02 AM CDT Blood days of incubation. Specimen (Source) Anatomical Collection Method Collection Time Re ceived Time Location / / Volume Laterality Blood (Blood, 01/09/2022 10:11 01/09/2022 Peripheral Draw) AM CDT 10:32 AM CD T Comment: Specimen Source Site: Blood Narrative [facility] - [facility] - 01/14/2022 11:02 AM CDT Received Bactec Peds bottle Wilfredo Vigil P.A.-C. LAB MICROBIOLOGY - GENERAL O RDERABLES Performing Organization Address City/State/ZIP Code Phon e Number [facility] - [address] [place], [place] [address] [place] [id number] [place] [address] (ABNORMAL) Dipstick, Urine (01/09/2022 10:04 AM CDT) Patholo gist Method Time Signature Hemoglobin, Negative Negative 01/09/2022 DTL QL, U 10:27 AM CDT Leukocyte Negative Negative 01/09/2022 DTL Esterase, U 10:27 AM CDT Nitrite, U Positive (A) Negative 01/09/2022 DTL 10:27 AM CDT Ketone, U Negative Negative 01/09/2022 DTL mg/dL 10:27 AM CDT Glucose, U Negative Negative 01/09/2022 DTL mg/dL 10:27 AM CDT Specimen Anatomical Collection Method Collection Time Receive d Time (Source) Location / / Volume Laterality Urine 01/09/2022 10:04 01/09/2022 AM CDT 10:21 AM CDT Migue Garcia Jr., M.D. LAB URINE ORDERABLES Performing Organization Address City/State/ZIP Code Phon e Number [facility] - [address] pH, Random, Urine (01/09/2022 10:04 AM CDT) P athologist Signature pH, Random, U 5.9 4.5 - 8.0 01/09/2022 DT 10:48 AM CDT Specimen Anatomical Collection Method Collection Time Receive d Time (Source) Location / / Volume Laterality Urine 01/09/2022 10:04 01/09/2022 AM CDT 10:21 AM CDT Migue Garcia Jr., M.D. LAB URINE ORDERABLES Performing Organization Address City/[facility]/ZIP Code Phon e Number [facility] - [address] [place], [place] [address] [place] [id number] [place] [address] Osmolality, Urine (01/09/2022 10:04 AM CDT) P athologist Signature Osmolality, U 428 150 - 1150 01/09/2022 DTL mOsm/kg 10:48 AM CDT Specimen Anatomical Collection Method Collection Time Receive d Time (Source) Location / / Volume Laterality Urine 01/09/2022 10:04 01/09/2022 AM CDT 10:21 AM CDT Migue Garcia Jr., M.D. LAB URINE ORDERABLES Performing Organization Address City/[facility] Code Phon e Number [facility] - [address] (ABNORMAL) Microscopic Manual (01/09/2022 10:04 AM CDT) P athologist Signature Microscopy Abnormal 01/09/2022 DTL 12:06 PM CDT RBC <3 <3 /hpf 01/09/2022 DTL 12:06 PM CDT WBC 1-3 /hpf 01/09/2022 DTL 12:06 PM CDT Comment: ----REFERENCE VALUE---- 1-3 ??(Males) 1-10 (Females) Casts, Hyaline 21-30 /lpf 01/09/2022 12:06 PM CDT D TL Casts, Granular Occas (A) /lpf 01/09/2022 12:06 PM CDT DTL Renal Epithelial Cells 1-3 (A) /hpf 01/09/2022 12:06 PM CDT DTL Squamous Epithelial 1-3 /hpf 01/09/2022 12:06 PM CDT DTL Cells, U Crystals Uric Acid crystals 01/09/2022 12:06 PM C DT DTL present Specimen Anatomical Collection Method Collection Time Receive d Time (Source) Location / / Volume Laterality Urine 01/09/2022 10:04 01/09/2022 AM CDT 10:21 AM CDT Migue Garcia Jr., M.D. LAB URINE ORDERABLES Performing Organization Address City/[facility] Code Phon e Number [facility] - [address] [place], [place] [address] [facility] D[place], [place] [phone] [place] [address] Bacterial Culture, Aerobic + Susc, Urine (01/09/2022 10:04 AM CDT) [facility] [facility] Method Time Signature Urine Culture No growth 01/10/2022 DTL after 1 day 8:28 AM CDT of incubation. Specimen Anatomical Collection Method Collection Time Receive d Time (Source) Location / / Volume Laterality Urine (Urine, 01/09/2022 10:04 01/09/2022 Straight AM CDT 11:23 AM CDT Catheter) Comment: Specimen Source Site: Urine Migue Garcia Jr., M.D. LAB MICROBIOLOGY - GENERA L ORDERABLES Performing Organization Address City/[facility] Phon e Number [facility] - [address] [place], [place] [address] [place] [place] [address] Laboratories-[place] [address] (ABNORMAL) Urinalysis with Microscopic: Urine, Straight Catheter (01/09/2022 10:04 AM CDT) [employer] Method Time Signature Source Urine, 01/09/2022 DTL Urine, 10:21 AM CDT Straight Catheter Color, U [place] (A) 01/09/2022 DTL 10:21 AM CDT Clarity, U Clear 01/09/2022 DTL 10:21 AM CDT Protein, U 10 <26 mg/dL 01/09/2022 DTL 10:52 AM CDT Protein/Osmola 0.23 <0.42 01/09/2022 DTL lity ratio 10:52 AM CDT Predicted 24 179 mg/24 h 01/09/2022 DTL Hr Protein 10:52 AM CDT Predicted 44-723 mg/24 h 01/09/2022 DTL Range 10:52 AM CDT Specimen Anatomical Collection Method Collection Time Receive d Time (Source) Location / / Volume Laterality Urine (Urine, 01/09/2022 10:04 01/09/2022 Straight AM CDT 10:21 AM CDT Catheter) Migue Garcia Jr., M.D. LAB URINE ORDERABLES Performing Organization Address City/State/ZIP Code Phon e Number [facility] - [address] [place], [place] [address] [facility] [place] [address] Laboratories-[place] [address] Lactate, POCT (01/09/2022 10:04 AM CDT) Analysis Performed At Patho logist Time Signature Lactate, POCT Collected DEFAULT 01/09/2022 SMLX 10:04 AM CDT Specimen Anatomical Collection Method Collection Time Receive d Time (Source) Location / / Volume Laterality Blood (Blood, 01/09/2022 10:04 01/09/2022 Venous) AM CDT 10:04 AM CDT Wilfredo Vigil P.A.-C. LAB POCT ORDERABLES - DEVICE Performing Organization Address City/[facility] Phon e Number [facility] - [address] [place], [place] [address] [facility] [place] [address] Laboratories-[address] Bacteria / Raudel Culture, Blood #1 (01/09/2022 10:04 AM CDT) Patholo gist Method Time Signature Bacteria/Adriana No growth 01/14/2022 DTL da Culture, after 5 11:02 AM CDT Blood days of incubation. Specimen (Source) Anatomical Collection Method Collection Time Re ceived Time Location / / Volume Laterality Blood (Blood, 01/09/2022 10:04 01/09/2022 Peripheral Draw) AM CDT 10:31 AM CD T Comment: Specimen Source Site: Blood Wilfredo Vigil P.A.-C. LAB MICROBIOLOGY - GENERAL O RDERABLES Performing Organization Address City/[facility] Phon e Number [facility] - [address] [place], [place] [address] [facility] [place] [address] Laboratories-[address] Glucose, POCT (01/09/2022 10:04 AM CDT) Analysis Performed At Patho logist Time Signature Glucose, POCT, Collected DEFAULT 01/09/2022 SMLX B 10:04 AM CDT Specimen Anatomical Collection Method Collection Time Receive d Time (Source) Location / / Volume Laterality Blood (Blood, 01/09/2022 10:04 01/09/2022 Capillary) AM CDT 10:04 AM CDT Wilfredo Vigil P.A.-C. LAB POCT ORDERABLES-MANUAL Performing Organization Address City/[facility]/ZIP [facility] Phon e Number [facility] - [address] [place], [place] [address] [facility] [place] [address] Laboratories[address] (ABNORMAL) Hepatic Function Panel (01/09/2022 10:03 AM CDT) [facility] Method Time Signature Bilirubin, Total, S 20.8 (H) <=1.2 01/09/2022 DTL mg/dL 11:12 AM CDT Bilirubin, Direct, S 11.3 (H) 0.0 - 0.3 01/09/2022 DTL mg/dL 12:09 PM CDT Aspartate 65 (H) 8 - 43 01/09/2022 DTL Aminotransferase U/L 11:12 AM (AST), S CDT Alanine 36 7 - 45 01/09/2022 DTL Aminotransferase U/L 11:12 AM (ALT), S CDT Alkaline 237 (H) 35 - 104 01/09/2022 DTL Phosphatase, S U/L 11:12 AM CDT Albumin, S 3.3 (L) 3.5 - 5.0 01/09/2022 DTL g/dL 11:12 AM CDT Protein, Total, S 4.7 (L) 6.3 - 7.9 01/09/2022 DTL g/dL 12:09 PM CDT Specimen Anatomical Collection Method Collection Time Receive d Time (Source) Location / / Volume Laterality Blood (Blood, 01/09/2022 10:03 01/09/2022 Venous) AM CDT 10:46 AM CDT Wilfredo Vigil P.A.-C. LAB BLOOD ADD-ON Performing Organization Address City/State/ZIP Code Phon e Number [facility] - [address] [place] [address] [facility] [place] [address] Laboratories[address] (ABNORMAL) Prothrombin Time (PT) (01/09/2022 10:03 AM CDT) [facility] Method Time Signature Prothrombin 28.3 (H) 9.4 - 12.5 01/09/2022 STMA Time, P sec 10:45 AM CDT INR 2.5 0.9 - 1.1 01/09/2022 STMA 10:45 AM CDT Comment: ----ADDITIONAL INFORMATION---- Standard intensity warfarin therapeutic range: 2.0 to 3.0 ?? High intensity warfarin therapeutic rang e: 2.5 to 3.5 Specimen Anatomical Collection Method Collection Time Receive d Time (Source) Location / / Volume Laterality Blood (Blood, 01/09/2022 10:03 01/09/2022 Venous) AM CDT 10:17 AM CDT Wilfredo Vigil P.A.-C. LAB BLOOD ADD-ON Performing Organization Address City/State/ZIP Code Phon e Number [facility] - [address] [place], [place] [address] [facility] [place] [address] Laboratories[facility] [address] (ABNORMAL) CBC with Differential, Blood (01/09/2022 10:03 AM CDT) athologist Signature Hemoglobin 6.2 (L) 11.6 - 15.0 01/09/2022 DHPM g/dL 11:03 AM CDT Comment: Rule out IV contamination. Cons ider sample redraw if clinically indicated. Hematocrit 17.3 (L) 35.5 - 44.9 % 01/09/2022 11:03 AM CDT D HPM Erythrocytes 1.52 (L) 3.92 - 5.13 x10(12)/L 01/09/2022 11:0 3 AM CDT DHPM MCV 113.8 (H) 78.2 - 97.9 fL 01/09/2022 11:03 AM CDT D HPM RBC Distrib Width 16.1 12.2 - 16.1 % 01/09/2022 11:03 A M CDT DHPM Platelet Count 61 (L) 157 - 371 x10(9)/L 01/09/2022 11:40 AM CDT DHPM Comment: REVISED RESULTS Results confirmed by smear, no clumping or interference seen. Leukocytes 13.6 (H) 3.4 - 9.6 x10(9)/L 01/09/2022 11:03 AM CDT DHPM Neutrophils 10.87 (H) 1.56 - 6.45 x10(9)/L 01/09/2022 11:03 AM CDT DHPM Lymphocytes 1.40 0.95 - 3.07 x10(9)/L 01/09/2022 11:03 AM CDT DHPM Monocytes 1.27 (H) 0.26 - 0.81 x10(9)/L 01/09/2022 11:03 AM CDT DHPM Eosinophils 0.03 0.03 - 0.48 x10(9)/L 01/09/2022 11:03 AM CDT DHPM Basophils 0.04 0.01 - 0.08 x10(9)/L 01/09/2022 11:03 AM CDT DHPM Specimen Anatomical Collection Method Collection Time Receive d Time (Source) Location / / Volume Laterality Blood (Blood, 01/09/2022 10:03 01/09/2022 Venous) AM CDT 10:17 AM CDT Wilfredo Vigil P.A.-C. LAB BLOOD ADD-ON Performing Organization Address City/[facility] Phon e Number [facility] [address] [place], [place] [address] hCG (Human Chorionic Gonadotropin), Quantitative, (01/09/2022 10:02 AM CDT) P athologist Signature HCG, 0.5 <5 IU/L 01/09/2022 STMA Quantitative, 10:37 AM CDT , P Specimen Anatomical Collection Method Collection Time Receive d Time (Source) Location / / Volume Laterality Blood (Blood, 01/09/2022 10:02 01/09/2022 Venous) AM CDT 10:17 AM CDT Wilfredo Vigil P.A.-C. LAB BLOOD ADD-ON Performing Organization Address City/State/[facility] Phon e Number [facility] [address] [place], [place] [address] (ABNORMAL) Basic Metabolic Panel (01/09/2022 10:02 AM CDT) Analysis Performed At Patho logist Time Signature Potassium, P 5.2 3.6 - 5.2 01/09/2022 STMA mmol/L 10:33 AM CDT Sodium, P 136 135 - 145 01/09/2022 STMA mmol/L 10:33 AM CDT Chloride, P 103 98 - 107 01/09/2022 STMA mmol/L 10:33 AM CDT Bicarbonate, P 17 (L) 22 - 29 01/09/2022 STMA mmol/L 10:33 AM CDT Anion Gap, P 16 (H) 7 - 15 01/09/2022 STMA 10:33 AM CDT BUN (Blood Urea 48 (H) 6 - 21 01/09/2022 STMA Nitrogen), P mg/dL 10:33 AM CDT Creatinine 1.50 (H) 0.59 - 01/09/2022 DTL 1.04 mg/dL 11:40 AM CDT Estimated GFR 47 (L) >=60 01/09/2022 DTL (eGFR) mL/min/BSA 11:40 AM CDT Comment: Estimated GFR calculated using the 2020 CKD_EPI creatinine equation. Calcium, Total, P 9.4 8.6 - 10.0 mg/dL 01/09/2022 10:3 3 AM CDT STMA Glucose, P 137 70 - 140 mg/dL 01/09/2022 10:33 AM CDT STMA Specimen Anatomical Collection Method Collection Time Receive d Time (Source) Location / / Volume Laterality Blood (Blood, 01/09/2022 10:02 01/09/2022 Venous) AM CDT 10:17 AM CDT Wilfredo Vigil P.A.-C. LAB BLOOD ADD-ON Performing Organization Address City/State/ZIP Code Phon e Number [facility] - [address] [place], [place] [address] [facility] [place] [address] [facility] [address] [place], [place] [id number] [place] [address] Glucose, POCT (01/09/2022 10:01 AM CDT) P athologist Signature Glucose, POCT, 131 70 - 140 01/09/2022 PCLX B mg/dL 10:02 AM CDT Site Venstick 01/09/2022 PCLX 10:02 AM CDT Specimen Anatomical Collection Method Collection Time Receive d Time (Source) Location / / Volume Laterality Blood 01/09/2022 10:01 01/09/2022 AM CDT 10:02 AM CDT Unknown Provider LAB POCT ORDERABLES-MANUAL Performing Organization Address City/State/ZIP Code Phon e Number POC [facility] [address] [place] [address] [place] [address] [place] [facility] 200 [facility] (ABNORMAL) Dipstick, POCT, Urine (01/09/2022 10:00 AM CDT) Patholo gist Method Time Signature Glucose, Negative Negative 01/09/2022 PCED POCT, U mg/dL 10:02 AM CDT Ketone, POCT, Negative Negative 01/09/2022 PCED U mg/dL 10:02 AM CDT Specific 1.015 1.005 - 01/09/2022 PCED [place], 1.030 10:02 AM CDT POCT, U Blood, POCT, Negative Negative 01/09/2022 PCED U 10:02 AM CDT pH, POCT, 6.0 5.0 - 8.0 01/09/2022 PCED Urine 10:02 AM CDT Protein, Negative Negative 01/09/2022 PCED POCT, U mg/dL 10:02 AM CDT Nitrites, Positive (A) Negative 01/09/2022 PCED POCT, U 10:02 AM CDT Leukocytes, Negative Negative 01/09/2022 PCED POCT, U 10:02 AM CDT Specimen Anatomical Collection Method Collection Time Receive d Time (Source) Location / / Volume Laterality Urine 01/09/2022 10:00 01/09/2022 AM CDT 10:02 AM CDT Unknown Provider LAB POCT ORDERABLES - DEVICE Performing Organization Address City/State/ZIP Code Phon e Number POC [facility] [address] [place] [address] [place] [address] [place] [facility] 200 [facility] (ABNORMAL) Ammonia (01/09/2022 9:59 AM CDT) P athologist Signature Ammonia, P 119 (H) <=30 01/09/2022 DTL mcmol/L 11:05 AM CDT Specimen Anatomical Collection Method Collection Time Receive d Time (Source) Location / / Volume Laterality Blood (Blood, 01/09/2022 9:59 AM 01/10/20 22 Venous) CDT 10:24 AM CDT Wilfredo Vigil P.A.-C. LAB BLOOD NON ADD-ON Performing Organization Address City/[facility]/ZIP [facility] Phon e Number [facility] - [address] [place] [phone] [place], [place] [id number] [place] [address] Lipase (01/09/2022 9:56 AM CDT) athologist Signature Lipase, S 25 13 - 60 U/L 01/09/2022 3:00 DTL PM CDT Specimen Anatomical Collection Method Collection Time Receive d Time (Source) Location / / Volume Laterality Blood (Blood, 01/09/2022 9:56 AM 01/10/20 22 2:41 Venous) CDT PM CDT Cornelia Jurado M.D. LAB BLOOD ADD-ON Performing Organization Address City/[facility]/ZIP Code Phon e Number [facility] - [address] [place] [address] [place] [address] Type and Screen (with reflex Antibody ID) (01/09/2022 9:56 AM CDT) [facility] gist Method Time Signature ABORh B Pos Not 01/09/2022 STRM applicable 12:41 PM CDT Antibody Negative Negative 01/09/2022 STRM Screen 12:55 PM CDT Type & Screen 01/12/2022 01/09/2022 STRM Expiration 23:59 12:41 PM CDT Testing Jcarlos DEFAULT 01/09/2022 STRM Location 12:21 PM CDT Specimen Anatomical Collection Method Collection Time Receive d Time (Source) Location / / Volume Laterality Blood (Blood, 01/09/2022 9:56 AM 01/10/20 22 Venous) CDT 12:21 PM CDT Leslie Gupta M.D. LAB BLOOD BANK TEST YO ELISE Performing Organization Address City/[facility]/ZIP Code Phon e Number [facility] - [address] [place] [phone] [facility] [place], [place] [id number] [place] [address] (ABNORMAL) Lactate, POCT (01/09/2022 9:53 AM CDT) P athologist Signature Lactate, POCT 3.55 (H) 0.50 - 01/09/2022 PCLX 2.20 10:20 AM CDT mmol/L Sample Site, Venstick 01/09/2022 PCLX POCT 10:20 AM CDT Specimen Anatomical Collection Method Collection Time Receive d Time (Source) Location / / Volume Laterality Blood 01/09/2022 9:53 AM CDT 10:20 AM CDT Unknown Provider LAB POCT ORDERABLES - DEVICE Performing Organization Address City/State/ZIP Code Phon e Number POC [facility] [address] [place] [address] PCLX [facility] [place] [address] [place] [facility] [address] documented in this encounter Visit Diagnoses Diagnosis Cirrhosis Alcoholic (HCC) 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) Pain Low Back Unspecified Decline Functional Status [R53.81 (ICD-1 0-CM)] Cirrhosis Alcoholic (HCC) Hypertension Portal (HCC) documented in this encounter Admitting Diagnoses Diagnosis Hepatic Encephalopathy Without Coma (HCC ) documented in this encounter Administered Medications Inactive Administered Medications - up to 3 most recent administrations Medication Order MAR Action Action Date Dose Rate Site acetaminophen tablet 500 mg Given 01/14/2022 4:27 PM CDT 500 mg (TYLENOL) 500 mg, oral, Every 6 hours PRN, mild pain or score 1-3 of 10, moderate pain or score 4-6 of 10, Starting on Wed01/13/22 at 1322 Given 01/14/2022 9:39 AM CDT 500 mg Given 01/14/2022 1:55 AM CDT 500 mg albumin human 25 % injection 60 g New Bag 01/12/2022 8:26 AM CDT 60 g 100 mL/hr 60 g, intravenous, Once, On 01/12/22 at 0700, For 1 dose, If no infusion rate specified: Administer the 25% solution at 100 mL/hr albumin human 25 % injection 90 g New Bag 01/11/2022 4:01 AM CDT 90 g 90 g, intravenous, Once, On 01/11/22 at 0200, For 1 dose, If no infusion rate specified: Administer the 25% solution at 100 mL/hr albumin human 5 % injection 25 g New Bag 01/09/2022 2:47 PM CDT 25 g 250 mL/hr 25 g, intravenous, Once, On Wed01/09/22 at 1430, For 1 dose, If no infusion rate specified: Administer the 5% solution at 999 mL/hr or less if ICU/shock, otherwise infuse at 250 mL/hr. cefTRIAXone in dextrose (iso-osm) IVPB New Bag 01/13/2022 4:00 PM CDT 1 g 200 mL/hr 1 g (ROCEPHIN) 1 g, intravenous, at 200 mL/hr, Administer over 15 Minutes, Every 24 hours, First dose (after last modification) on Wed01/09/22 at 1500, Drug Monitoring Program: Pharmacist to adjust medication dosing based on indication and drug clearance factors., Indications: Intra-abdominal infection, community acquired New Bag 01/12/2022 3:06 PM CDT 1 g 200 mL/hr New Bag 01/11/2022 2:32 PM CDT 1 g 200 mL/hr cholecalciferol tablet 400 Units (VITAMIN Given 2021 9:39 AM CDT 400 Units D3) 400 Units, oral, Daily, First dose on Wed01/10/22 at 0900, cholecalciferol 400 units oral daily was interchanged for ergocalciferol 400 units oral daily Given 01/13/2022 8:13 AM CDT 400 Units Given 01/12/2022 8:22 AM CDT 400 Units ciprofloxacin tablet 500 mg (CIPRO) Given 01/14/2022 12:24 PM CDT 500 mg 500 mg, oral, Daily before breakfast, First dose on Wed01/14/22 at 1115, Take 2 hours before or 6 hours after antacids containing magnesium or aluminum, sucralfate, didanosine, polymeric phosphate binders, or products containing calcium, iron, or zinc., Drug Monitoring Program: Pharmacist to adjust medication dosing based on indication and drug clearance factors., Indications: Intra-abdominal infection, community acquired diclofenac sodium 1 % gel 2 g (VOLTAREN) Given 01/14/2022 1:55 AM CDT 2 g 2 g, topical, 4 times daily PRN, MSK pain, Starting on Wed01/09/22 at 1815, Do not exceed 32 g per day, over all affected joints. Use dosing card to measure product. 2 g = 2.25 inches, 4 gm = 4.5 inches. Rinse dosing card after use and save for each administration. Given 01/13/2022 8:17 PM CDT 2 g Given 01/13/2022 12:51 PM CDT 2 g folic acid tablet 1 mg Given 01/14/2022 9:39 AM CDT 1 mg 1 mg, oral, Daily, First dose on Wed01/10/22 at 0900 Given 01/13/2022 8:13 AM CDT 1 mg Given 01/12/2022 8:22 AM CDT 1 mg furosemide tablet 40 mg (LASIX) Given 01/14/2022 9:39 AM CDT 40 mg 40 mg, oral, Daily, First dose on Wed01/14/22 at 0900 HYDROmorphone (PF) injection 0.2 mg Given 01/09/2022 2:45 PM CDT 0.2 mg (DILAUDID) 0.2 mg, intravenous, Every 1 hour PRN, severe pain or score 7-10 of 10, Starting on Wed01/09/22 at 1420 HYDROmorphone tablet 1 mg (DILAUDID) Given 01/12/2022 8:21 AM CDT 1 mg 1 mg, oral, Every 4 hours PRN, moderate pain or score 4-6 of 10, Starting on Wed01/09/22 at 1615 Given 01/12/2022 3:11 AM CDT 1 mg Given 01/11/2022 7:35 PM CDT 1 mg HYDROmorphone tablet 1 mg (DILAUDID) Given 01/13/2022 8:12 AM CDT 1 mg 1 mg, oral, Every 12 hours PRN, moderate pain or score 4-6 of 10, Starting on Wed01/12/22 at 1115, For 21 hours Given 01/12/2022 8:00 PM CDT 1 mg lactulose solution 10 g (CHRONULAC) Given 01/14/2022 3:11 PM CDT 10 g 10 g, oral, 3 times daily, First dose on Wed01/09/22 at 2100 Given 01/14/2022 9:41 AM CDT 10 g Given 01/13/2022 8:16 PM CDT 10 g lidocaine 10 mg/mL (1 %) injection Given 01/13/2022 2:50 8 mL Abdominal (XYLOCAINE) PM CDT Tissue Code/trauma/sedation medication, Starting on Wed01/13/22 at 1450 lidocaine 5 % 1 patch Medication Applied 01/14/2022 9:39 AM 1 patch Right Lower (LIDODERM) CDT Abdomen 1 patch, transdermal, Administer over 12 Hours, Daily, First dose on Wed01/12/22 at 1115, Remove after 12 hours. For R lower back pain Medication Applied 01/13/2022 8:13 AM CDT 1 patch Right Lower Abdomen Medication Applied 01/12/2022 12:47 PM CDT 1 patch Lower Back LORazepam tablet 0.5 mg (ATIVAN) Given 01/13/2022 1:38 PM CDT 0.5 mg 0.5 mg, oral, Once as needed, anxiety, Starting on Wed01/13/22 at 1016, For 1 dose NaCl 0.9 % bolus 1,000 mL New Bag 01/09/2022 10:17 AM CDT 1,000 mL 1000 mL/hr 1,000 mL, intravenous, at 1,000 mL/hr, Administer over 1 Hours, Once, On Wed01/09/22 at 1011, For 1 dose naloxone injection 0.2 mg (NARCAN) 0.2 mg, intravenous, As needed, respirat ory depression, Starting on Wed01/09/22 at 1422, For RASS Score -4 or less, respiratory rate of l ess than 8 breaths/min. Notify provider/service and rapid response team (if av ailable at institution). octreotide 2 mcg/mL in NaCl 0.9% New Bag 01/11/2022 8:28 PM CD T 50 mcg/hr 25 mL/hr 250 mL infusion (SandoSTATIN) 50 mcg/hr (25 mL/hr), intravenous, Continuous, Starting on 01/10/22 at 0345, Protect from light. New Bag 01/11/2022 9:42 AM CDT 50 mcg/hr 25 mL/hr New Bag 01/10/2022 11:40 PM CDT 50 mcg/hr 25 mL/hr octreotide injection 50 mcg (SandoSTATIN ) Given 01/10/2022 5:04 AM CDT 50 mcg 50 mcg, intravenous, Once, On 01/10/22 at 0345, For 1 dose, Refrigerate. Protect from light. ondansetron (PF) injection 4 mg (ZOFRAN) Given 01/10/2022 8:33 AM CDT 4 mg 4 mg, intravenous, Every 6 hours PRN, nausea, vomiting, Starting on Wed01/09/22 at 1417 Given 01/09/2022 9:59 PM CDT 4 mg ondansetron ODT disintegrating tablet 4 mg Given 01/12/2022 5:36 PM CDT 4 mg (ZOFRAN-ODT) 4 mg, oral, Every 6 hours PRN, nausea, vomiting, Starting on Wed01/09/22 at 1417, When splitting ODT at bedside, handle with gloves and a pill splitter to prevent moisture contact. Given 01/12/2022 9:06 AM CDT [address] tablet 40 mg (PROTONIX) Given 01/12/2022 3:06 PM CDT 40 mg 40 mg, oral, 2 times daily before breakfast and dinner, First dose on Wed01/10/22 at 0700, Swallow whole. Do NOT crush, chew, or split tablet. Given 01/12/2022 6:34 AM CDT 40 mg Given 01/11/2022 3:20 PM CDT [address] tablet 40 mg (PROTONIX) Given 01/14/2022 6:06 AM CDT 40 mg 40 mg, oral, Daily before breakfast, First dose (after last modification) on Wed01/13/22 at 0700, Swallow whole. Do NOT crush, chew, or split tablet. Given 01/13/2022 6:23 AM CDT 40 mg pantoprazole injection 40 mg (PROTONIX) Given 01/11/2022 8:43 AM CDT 40 mg 40 mg, intravenous, Every 12 hours scheduled, First dose (after last modification) on Wed01/09/22 at 2115, Administer IV push over 2 minutes. Add 10 mL NS to 40 mg vial for a final concentration of 4 mg/mL. Given 01/10/2022 8:17 PM CDT 40 mg Given 01/10/2022 11:21 AM CDT 40 mg prochlorperazine injection 5 mg (COMPAZI NE) Given 01/12/2022 5:38 PM CDT 5 mg 5 mg, intravenous, Every 6 hours PRN, nausea, vomiting, Starting on Wed01/10/22 at 0023 Given 01/11/2022 4:40 PM CDT 5 mg Given 01/10/2022 1:48 PM CDT 5 mg rifAXIMin tablet 550 mg (XIFAXAN) Given 01/14/2022 9:39 AM CDT 550 mg 550 mg, oral, 2 times daily, First dose on Wed01/09/22 at 2100, Indications: Prophylaxis, medical Given 01/13/2022 8:16 PM CDT 550 mg Given 01/13/2022 8:13 AM CDT 550 mg sodium chloride 0.9 % injection 2-10 mL 2-10 mL, intravenous, As needed, line care, Starting o n Wed01/09/22 at 0934 spironolactone tablet 50 mg (ALDACTONE) Given 01/14/2022 9:39 AM CDT 50 mg 50 mg, oral, Daily, First dose on Wed01/14/22 at 0900 thiamine tablet 100 mg (VITAMIN B1) Given 01/14/2022 9:39 AM CDT 100 mg 100 mg, oral, Daily, First dose on Wed01/10/22 at 0900 Given 01/13/2022 8:13 AM CDT 100 mg Given 01/12/2022 8:22 AM CDT 100 mg traZODone tablet 50 mg (DESYREL) Given 01/13/2022 8:16 PM CDT 50 mg 50 mg, oral, Daily at bedtime, First dose on Wed01/10/22 at 0030 Given 01/12/2022 8:01 PM CDT 50 mg Given 01/11/2022 8:28 PM CDT 50 mg vitamin A capsule 3,000 mcg Given 01/14/2022 9:43 AM CDT 3,000 mcg 3,000 mcg, oral, 3 times weekly (Once per day on Wed), First dose on Wed01/12/22 at 0900, For 20 days, Vitamin A (retinol): Units x 0.3 = mcg; 10,000 Units = 3,000 mcg Vitamin A (Supplemental Beta-carotene): Units x 0.3 = mcg Vitamin A (Dietary Beta-carotene): Units x 0.05 = mcg Given 01/12/2022 8:25 AM CDT 3,000 mcg documented in this encounter Active and Recently Administered Medications Times are shown in CDT. Scheduled Medication Order 01/12/2022 01/13/2022 01/14/2022 albumin human 25 % injection 60 g (COMPLETED) 08 (Ne w Bag - Provider: Yanira Martinez RGabby) 60 g, intravenous, Once, On Wed01/12/22 at 0700, For 1 dose, If no infusion rate specified: Administer the 25% solution at 100 mL/hr cefTRIAXone in dextrose (iso-osm) IVPB 1 g (ROCEPHIN) (CANCELED) 1506 (New Bag - Provider: Yanira Martinez RSumaNSuma) 1600 (New Bag - Provider: Leandra morris RSumaNSuma) 1 g, intravenous, at 200 mL/hr, Administ er over 15 Minutes, Every 24 hours, First dose (after last modification) on Wed01/09/22 at 1500, Drug Monitoring Program: Pharmacist to adjust medication dosing ba sed on indication and drug clearance fac tors., Indications: Intra-abdominal infection, community acquired cholecalciferol tablet 400 Units (VITAMIN D3) 0822 (Gi ekaterina - Provider: Yanira Martinez R.N.) 0813 (Given - Provider: Leandra Estevez R.N.) 0939 (G iven - Provider: Leandra Estevez RGabby) 400 Units, oral, Daily, First dose on 01/10/22 at 0900, cholecalciferol 400 units oral daily was interchanged for ergocalciferol 400 units oral daily ciprofloxacin tablet 500 mg (CIPRO) 1224 (Given - Provider: Leandra Estevez RSumaNSuma) 500 mg, oral, Daily before breakfast, Fi rst dose on Wed01/14/22 at 1115, Take 2 hours before or 6 hours after antacids containing magnesium or aluminum, sucralfate, didanosine, polymeric phosphate binde rs, or products containing calcium, iron , or zinc., Drug Monitoring Program: Pharmacist to adjust medication dosing based on indication and drug clearance factors., Indications: Intra-abdominal infection, community acquired folic acid tablet 1 mg 0822 (Given - Provider: Yanira diaz R.N.) 0813 (Given - Provider: Leandra Estevez R.N.) 0939 (Given - Provider: Leandra Estevez R.N.) 1 mg, oral, Daily, First dose on Wed01/10/22 at 0900 furosemide tablet 40 mg (LASIX) 0939 (Given - Provider: Leandra Estevez R.N.) 40 mg, oral, Daily, First dose on Wed01/14/22 at 0900 lactulose solution 10 g (CHRONULAC) 0821 (Given - Prov ider: Yanira Martinez R.N.)1506 (Given - Provider: Yanira Martinez R.N.)2000 (Given - Provider: Kary Dickson R.N.) 0813 (Given - Provider: Leandra Estevez R.N.)1338 (Not Given - Provider: Leandra Estevez R.N. - Reason: Patient/family refused)2015 (Given - Provider: Andrew VilaNSuma) 0941 (Given - Provider: Leandra Estevez R.N.)1511 (Given - Provider: Leandra Estevez R.N.) 10 g, oral, 3 times daily, First dose on Wed01/09/22 at 2100 lidocaine 5 % 1 patch (LIDODERM) 1142 (Not Given - Pro vider: Yanira Martinez R.N. - Reason: Patient/family refused)1247 (Medication Applied - Provider: Yanira Martinez R.N.) 0047 (Medication Removed - Provider: Andrew BelloNSuma)0813 (Medication Applied - Provider: Leandra Estevez R.N.)202 (Medication Removed - Provider: Kindra Knight RGabby) 0939 (Medication Applied - Provider: Leandra Estevez R.N.)1748 (Due: Medication Removed - Provider: Discharge Provider, Automatic - Comment: Time automatically adjusted from order being discontinued) 1 patch, transdermal, Administer over 12 Hours, Daily, First dose on 01/12/22 at 1115, Remove after 12 hours. For R lower back pain pantoprazole DR tablet 40 mg (PROTONIX) (CANCELED) 063 4 (Given - Provider: Andrew WilsonNSuma)1506 (Given - Provider: Yanira Martinez R.N.) 40 mg, oral, 2 times daily before breakf ast and dinner, First dose on Wed01/10/22 at 0700, Swallow whole. Do NOT crush, chew, or split tablet. pantoprazole DR tablet 40 mg (PROTONIX) 0623 (Given - Provider: Kary Dickson R.N.) 0606 (Given - Provider: Kindra Knight R.N.) 40 mg, oral, Daily before breakfast, Fir st dose (after last modification) on Wed01/13/22 at 0700, Swallow whole. Do NOT crush, chew, or split tablet. rifAXIMin tablet 550 mg (XIFAXAN) 821 (Given - Provid er: Yanira Martinez R.N.)1999 (Given - Provider: Kary Dickson R.N.) 08 (Given - Provider: Leandra Estevez R.N.)2015 (Given - Provider: Kindra Knight R.N.) 0939 (Given - Provider: Leandra Estevez R.N.) 550 mg, oral, 2 times daily, First dose on Wed01/09/22 at 2100, Indications: Prophylaxis, medical spironolactone tablet 50 mg (ALDACTONE) 0939 (Given - Provider: Leandra Estevez R.N.) 50 mg, oral, Daily, First dose on Wed01/14/22 at 0900 thiamine tablet 100 mg (VITAMIN B1) 821 (Given - Prov ider: Yanira Martinez R.N.) 08 (Given - Provider: Leandra Estevez R.N.) 0939 (G iven - Provider: Leandra Estevez R.N.) 100 mg, oral, Daily, First dose on Wed01/10/22 at 0900 traZODone tablet 50 mg (DESYREL) 2000 (Given - Provide r: Kary Dickson R.N.) 2015 (Given - Provider: Kindra Knight R.N.) 50 mg, oral, Daily at bedtime, First dose on Wed01/10/22 at 0030 vitamin A capsule 3,000 mcg 08 (Given - Provider: Yanira lucas RSumaNSuma) 0943 (Given - Provider: Leandra Estevez R.N.) 3,000 mcg, oral, 3 times weekly (Once day on Wed), First dose on Wed01/12/22 at 0900, For 20 days, Vitamin A (retinol): Units x 0.3 = mcg; 10,000 Units = 3,000 mcg Vitamin A (Supplemental Be ta-carotene): Units x 0.3 = mcg Vitamin A (Dietary Beta-carotene): Units x 0.05 = mcg PRN Medication Order 01/12/2022 01/13/2022 01/14/2022 acetaminophen tablet 500 mg (TYLENOL) 13 38 (Given - Provider: Leandra Estevez R.N.)2016 (Given - Provider: Kindra Knight R.N.) 0155 (Given - Provider: Kindra Knight R.N.)0939 (Given - Provider: Leandra Estevez R.N.)1627 (Given - Provider: Kain Winston RSumaNSuma) 500 mg, oral, Every 6 hours PRN, mild pa in or score 1-3 of 10, moderate pain or score 4-6 of 10, Starting on Wed01/13/22 at 1322 diclofenac sodium 1 % gel 2 g (VOLTAREN) 1251 (Given - Provider: Leandra Estevez R.N.)2017 (Given - Provider: Kindra Knight R.N.) 0155 (Given - Provider: Kindra Knight R.N.) 2 g, topical, 4 times daily PRN, MSK taina n, Starting on Wed01/09/22 at 1815, Do not exceed 32 g per day, over all affected joints. Use dosing card to measure product. 2 g = 2.25 inches, 4 gm = 4.5 inches. Rinse dosing card after use and save for each administration. HYDROmorphone tablet 1 mg (DILAUDID) (CANCELED) 0311 ( Given - Provider: Andrew WilsonNSuma)0821 (Given - Provider: Yanira Martinez RGabby) 1 mg, oral, Every 4 hours PRN, moderate pain or score 4-6 of 10, Starting on Wed01/09/22 at 1615 HYDROmorphone tablet 1 mg (DILAUDID) () 1999 (G iven - Provider: Kary Dickson R.N.) 0812 (Given - Provider: Leandra Estevez R.N.) 1 mg, oral, Every 12 hours PRN, moderate pain or score 4-6 of 10, Starting on Wed01/12/22 at 1115, For 21 hours lidocaine 10 mg/mL (1 %) injection (XYLOCAINE) (COMPLETED) 1450 (Given - Provider: Sree Lund M.D.) Code/trauma/sedation medication, Starting on Wed01/13/22 at 1450 LORazepam tablet 0.5 mg (ATIVAN) (COMPLETED) 1338 (Given - Provider: Leandra Estevez R.N.) 0.5 mg, oral, Once as needed, anxiety, S tarting on Wed01/13/22 at 1016, For 1 dose naloxone injection 0.2 mg (NARCAN) 0.2 mg, intravenous, As needed, respirat ory depression, Starting on Wed01/09/22 at 1422, For RASS Score -4 or less, respiratory rate of less than 8 breaths/min. Notify provider/service and rapid response team (if available at institution). ondansetron ODT disintegrating tablet 4 mg (ZOFRAN-ODT ) 0906 (Given - Provider: Yanira Martinez R.N.)1736 (Given - Provider: Yanira Martinez R.N.) 4 mg, oral, Every 6 hours PRN, nausea, v omiting, Starting on Wed01/09/22 at 1417, When splitting ODT at bedside, handle with gloves and a pill splitter to prevent moisture contact. prochlorperazine injection 5 mg (COMPAZINE) 0904 (Not Given - Provider: Yanira Martinez REric. - Reason: Patient/family refused)1738 (Given - Provider: Yanira Martinez R.N.) 5 mg, intravenous, Every 6 hours PRN, na usea, vomiting, Starting on Wed01/10/22 at 0023 sennosides-docusate sodium 8.6-50 mg per tablet 1 tablet (SENOKO T-S) 1 tablet, oral, Bedtime PRN, constipatio n, Starting on Wed01/09/22 at 1534, Do not give if patient has diarrhea. sodium chloride 0.9 % injection 2-10 mL(Linked Group 1) 2-10 mL, intravenous, As needed, line care, Starting on Wed at 0934 Linked Groups Order Group 1: Place peripheral IV: No upper extremity site restrictions (CANCELED) Upper extremity site restriction: No upp er extremity site restrictions
Quantity of PIVs requested: One
STAT, Once, On Wed01/09/22 at 0935, For 1 occurrence And sodium chloride 0.9 % injection 2-10 mLJump to med 2-10 mL, intravenous, As needed, line ca re, Starting on Wed01/09/22 at 0934 documented in this encounter Additional Health Concerns Infection Onset Date Last Indicated Resolved Time COVID19 Pending 01/09/2022 01/09/2022 01/09/2022 2:05 PM CDT Assessment Noted Time PHQ-9 Depression Total Score: 10 10/06/2021 5:00 PM CD T documented as of this encounter Care Teams Seed Trucker Relationship Specialty Start Date End Date Ana Red P.A.-C. PCP - General Internal Medicine 12/01/[address] [place] [phone] [facility] [place] [facility] 08/25/21 Ervin Schroeder MD Referring Provider Family Medicine 03/24/[address] [place] [phone] documented as of this encounter
--- OUTSIDE RECORDS SUMMARY | 2022-01-31 04:23 | XMS_ITS | Encounter Summary ---
:1990 Author Organization [facility] Address [address] [place] [address] Care Team Providers Name Role Phone Ana Red P.A.-C. Primary Care Provider Encounter Details Date Type Department Care Team Description 01/08/2022 Clinical Communication Department of [facility] Farida Perez Medicine in [address] [phone] [facility] [phone] (Work) [phone] Social History Tobacco Use Types Packs/Day Years [...] do you attend tenriism or Never 2021 worship services? Do you belong to any clubs or No 07/17/2021 organizations such as tenriism groups, unions, [employer]. or athletic groups, or school groups? How [...] at Date Recorded Female 04/12/2021 7:39 PM [employer] documented as of this encounter Miscellaneous Notes Telephone Encounter - Dg Kapadia V., C.M.A. - 01/08/2022 3:40 PM CDT SUBJECTIVE CHIEF COMPLAINT / REASON FOR CALL No chief complaint on file. Information Discussed Faxed out updated list. Patient last seen on 01/07/2022. PLAN Disposition/Recommendation: recommended continue engagement in self-management activities Information/Education: patient/caller able to teach back Caller agreeable to plan of care: yes The following references were used: none Telephone Encounter - Catia Weiss Elizabeth - 01/08/2022 2:52 PM CDT Reason for Communication: Misbah the group home manager called and would like an updated med list of the pt's Current Phone Number: P;[phone] FAX:[phone] Attn: Misbah Can Nursing/Provider leave a detailed message?: na Did the patient refuse triage through Nurse line? (for symptom based concerns): na Action Needed: please fax most current med list to Misbah Name of Medication (if relevant): na Please send all scheduling replies to scheduling pool. documented in this encounter Plan of Treatment Upcoming Encounters Date Type Specialty Care Team Description Office Visit Community Internal [facility], 2 Medicine Vernell Perez [address] [place] [phone] Appointment Radiology [facility], Matthew 2 YJoshuaB.B.Kath, Lilian [address] [place] [phone] [facility] Gastroenterology and Mousa, Matthew 2 Encounter Hepatology Joshua RodriguezB.B.Lilian Stockton [address] [place] [phone] Surgery Gastroenterology and Wiusa, Matthew ESOPHAG OGASTRODUODENOSCOPY 2 Hepatology Joshua RodriguezB.B.Kath, Lilian [address] [place] [phone] Telemedicine Transplant 2 Lab Laboratory Medicine Karin, 2 Adeline Gannon M.D., Ph.D. [address] [place] [phone] Lab Laboratory Medicine Olinda Frazier M.D., Ph.D. [address] [place] [phone] Office Visit Transplant Olinda Frazier M.D., Ph.D. [address] [place] [phone] Appointment Radiology Matthew Jerome 2 YVikBGraeme, Lilian [address] [place] [phone] Appointment Gastroenterology demian Silver 2 Hepatology Yue Burciaga M.D. [address] [place] [phone] Office Visit Gastroenterology and Matthew Jerome 2 Hepatology Joshua RodriguezBSumaBLilian Bedolla [address] [place] [phone] Appointment Radiology Matthew Jerome 2 YJoshuaBSumaBLilian Bedolla [address] [place] [phone] Scheduled Procedures Name Priority Associated Diagnoses Date/Time ESOPHAGOGASTRODUODENOSCOPY Cirrhosis Alc oholic (HCC) 02/10/2022 8:45 AM CDT Hypertension Portal (HCC) documented as of this encounter Visit Diagnoses Not on filedocumented in this encounter Additional Health Concerns Assessment Noted Time PHQ-9 Depression Total Score: 10 10/06/2021 5:00 PM CD T documented as of this encounter Care Teams Animal Husbandry Technician Relationship Specialty Start Date End Date Ana Red P.A.-C. PCP - General Internal Medicine 12/01/[address] [place] [address] [facility] [phone] [facility] 08/25/21 Ervin Schroeder MD Referring Provider Family Medicine 03/24/[address] [place] [address] [place] [phone] documented as of this encounter
--- OUTSIDE RECORDS SUMMARY | 2022-01-31 04:23 | XMS_ITS | Encounter Summary ---
:1990 Author Organization [facility] Address [address] [place] [address] Care Team Providers Name Role Phone Ana Red P.A.-C. Primary Care Provider [phone] Reason for Visit Transplant (Routine) - Closed Specialty Diagnoses / Procedures Referred By Contact Refer red To Contact Transplant Surgery / Joel Tan [facility] L.I.C.S.W., M.S.W. [address] [place] [address] Referral ID Status Reason Start Date Expiration Date Visits Requ ested Visits Authorized [id number] Closed 10/29/2021 10/29/2022 1 1 Encounter Details Date Type Department Care Team Description 01/13/2022 Telemedicine Joel Sage rrhosis [facility] Center for L, L.I.C.S.W., (HCC) (Primar y Dx) Transplantation and M.S.W. Clinical Regeneration in [address] [place] [address] [place] [address] [place] [address] Social History Tobacco Use Types Packs/Day [...] do you attend confucianist or Never 2021 synagogue services? 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 - 01/13/2022 10:45 AM CDT Consult conducted remotely via real-time audio/video technology through HIPAA compliant Zoom by Shala Shields, M.S.W. to the patient at her hospital room: [place] [id number]. This Video Visit was performed during the COVID-19 emergency. Telehealth is an innovative solution for delivering high-quality effective and appropriate behavioral health care to sustain and strengthenpatient's mental and physical health. Type of service: Reassess progress towards transplant recommendations Start time: 10:53 a.m. End time: 11:13 a.m. SUBJECTIVE I recently met with the patient on 09/30/2021 at which time I completed a psychosocial assessment and education visit as part of the patient's comprehensive evaluation for liver transplantation. The patient was assigned a PACT score of 1 due to needing to solidify her caregiver plan for the post-transplant recovery period and need to follow Transplant Addictions Psychiatry, Transplant Mood Psychiatryand Transplant Pain Psychiatry's recommendations. Please refer to my CM Care Management Consult notedated 09/30/2021 for additional psychosocial history detail information. I met with the patient today via telehealth/video visit as a follow up. She is currently hospitalized at [facility]. She reports being admitted to the hospital on 01/09/2022 due to confusion, which she stated has improved. She stated she is hopeful to discharge from thehospital later this evening or tomorrow. She was alone for the interview. Since initially meeting with the patient she has solidified her caregiver plan for the post-transplant recovery period. She reports having strong support and stated she feels fortunate for this. 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 He stated he has spoken with [...] Yes, via telephone - 12/12/2021 The patient had met with Dr. Radhames Neumann with Transplant Pain Psychiatry on 10/06/2021 who had recommended the following: I recommend that she participate in the virtual Complex Persistent Pain Program (CPPP), a 4-hour group-based psychoeducation course that addressed central sensitivity, neuroplasticity, and evidence-based behavioral strategies to enhance functioning. The patient has stopped use of gabapentin, oxycodone and medical marijuana. She stated she [facility], Ana Red PA-C, at [facility], whom she states has prescribed herFlexeril due to a pulled muscle in the patient's back and also back spasms. The patient is wonderingabout working with physical therapy after her discharge from the hospital. I advised the patient to contact her nurse and/or doctor while she is currently hospitalized to inquire about this and have also informed inpatient director social service, Alexei Deshpande [facility], about the patient's inquiry. The patient stated she has not otherwise pursued the CPPP, acknowledging that she forgot about it. She stated she does not know if it is necessary for her to complete this, however stated she is willing to do anything to help. I informed the patient that I would contact the Transplant Team to inquire if it wasfelt this was still necessary since she is no longer using opioids or medical marijuana. The patient had met with Dr. Frazier with Transplant Addictions Psychiatry on 10/10/2021 who madethe following recommendations: COMPLETE THE FULL TRANSPLANT CENTER [...] management per Radhames Neumann, Ph.D., L.P. in [place] Transplant Psychiatry (Pain Rehabilitation), 10/06/2021: - virtual [...] Addiction Psychiatrist based on the patient's progress. The patient reports continued abstinence from alcohol, stating she last drank alcohol approximately 2 years ago. I do note that when I last met with the patient in person on 09/30/2021 she stated she last drank over one year ago, therefore I am unclear of her exact sober date. The patient stated she has not yet started outpatient addiction treatment due to having been hospitalized. She stated she wasto have paperwork sent to her in the mail in regards to [facility]'s outpatient addiction program and believes they are at her home. She stated her boyfriend plans to bring them to her at the hospitalso she can complete them. She reports motivation to complete outpatient addiction treatment. She stated she has been attending Alcoholics Anonymous (AA) virtually for the past 1.5 months. She stated she tries to attend daily, however will attend between 1 to 7 days per week. She is willing to attend in person, however stated she prefers to attend virtually due to her medical condition and concern forgetting sick. She does not yet have a sponsor through AA. The patient is scheduled to meet with one of our Transplant Center Licensed Alcohol and Drug Counselors (LADC) this morning who will further assess the patient's progress with these recommendations. The patient met with Dr. Keen with [facility] on 10/22/2021 who indicatedthe following: She has not discontinued opiate and THC use and I will [...] 1 due to untreated substance/alcohol use disorders. The patient informed me today that she had contacted the [facility] and was told It didn't seem like I would qualify. The patient stated she never had a true eating disorder. When I met with thepatient on 09/30/2021 she reported a history of anorexia and bulimia. 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 At the time of our visit on09/30/2021 the patient stated she last experienced bulimic behaviors at the end of January or early to mid January 2021. She reported last having restrictive eating related to her anorexia one year ago. The patient stated she had never received mental health care for eating disorders stating, I hidit well. I discussed this with the patient this morning. She stated she has not had concerns related to eating behaviors since her teens/early 20s. She stated at the time of our visit on 09/30/2021 Iwas speaking loosely. She stated she had found out about her liver disease in January 2021 and she did not realize at that time that her difficulties with eating were a result of her liver disease, not an eating disorder. The patient stated she does not believe she will need to have further treatment for an eating disorder. I informed the patient that I do not see that she is currently scheduled to see Dr. Glenny Sales in follow up and informed her that I would place an order for her to reassess and to determine if further eating disorder treatment is warranted. The patient is agreeable and prefers to complete this via telehealth/video visit. After meeting with the patient I do note that thepatient sent Dr. Glenny Sales a message via the patient portal on 12/20/2021 including screen shots after completing online questionnaires with the [facility] and one states Your quiz results indicate the presence of disordered eating. Please contact us to discuss treatment options. The patient additionally informed me that she quit smoking cigarettes and has not used any other recreational drugs. The patient was given an opportunity to ask questions. She did not express further questions at thistime. OBJECTIVE The patient presented as alert and oriented over telehealth/video visit. She was engaged in conversation. ASSESSMENT / PLAN ASSESSMENT The patient is a pleasant 31 year old female who presents for a follow up visit in order to determine her progress made with Transplant Center recommendations in regards to her candidacy for liver transplantation. She appears to have good caregiver support and has solidified her caregiver plan for thepost-transplant recovery period. She has not engaged in the recommended CPPP, however has discontinued use of gabapentin, oxycodone and medical marijuana. She has remained abstinent from alcohol, although her sober date is unclear. She has not engaged in outpatient addiction treatment. She has been attending AA 1-7 days per week for the past 1.5 months. She does not yet have a sponsor through AA. Shedenied concerns related to prior eating disorder that was previously reported. She has not attended the [facility] for eating disorders as was discussed with her by Dr. Keen. She reports motivation to follow any recommendations put forth by the Transplant Center in order to be considereda candidate for transplantation. PACT remains 1 out of 4 until the patient has completed recommendations as determined by Transplant Psychiatry (Addictions, Mood and Pain) teams. PLAN 1) Message has been sent to Dr. Jerome, Dr. Neumann, Dr. Frazier, Dr. Glenny Sales, the pre-liver transplant nurse coordinators and the transplant center LAD in regards to my visit with the patient this morning and to determine if they would continue to support their previous recommendations previously outlined to the patient. 2) Ordered has been placed for the patient to meet with Dr. Keen with Transplant Mood Psychiatry as a follow up to their visit in October 2021. 3) The patient was encouraged to contact me should she have additional questions or if I can be of further assistance. She reports intention to send me a message via the patient portal should she have further questions or concerns. 4) Transplant Social Work will continue to follow for support and assistance as needed. Shala Shields, M.S.W. 01/13/22 documented in this encounter Plan of Treatment Upcoming Encounters Date Type Specialty Care Team Description Office Visit [facility], 2 Medicine Vernell Perez [address] [place] [phone] Appointment Radiology Matthew Jerome 2 YTyrell M.D. [address] [place] [phone] Hospital Gastroenterology and Matthew Jerome 2 Encounter Hepatology Tyrell Rodriguez M.D. [address] [place] [phone] Surgery Gastroenterology and Matthew Jerome ESOPHAG OGASTRODUODENOSCOPY 2 Hepatology Tyrell Rodriguez M.D. [address] [place] [phone] Telemedicine Transplant 2 Lab Laboratory Medicine Olinda Frazier M.D., Ph.D. [address] [place] [phone] Lab Laboratory Medicine Olinda Frazier M.D., Ph.D. [address] [place] [phone] Office Visit Transplant Olinda Frazier M.D., Ph.D. [address] [place] [phone] Appointment Radiology Matthew Jerome 2 YJoshuaB.B.SSuma, Lilian [address] [place] [phone] Appointment Gastroenterology and [place], 2 Hepatology Yue Burciaga M.D. [address] [place] [phone] Office Visit Gastroenterology and Matthew Jerome 2 Hepatology Joshua RodriguezBSumaB.SLilian Moise [address] [place] [phone] Appointment Radiology Matthew Jerome 2 YJoshuaB.B.SLilian Moise [address] [place] [phone] Scheduled Procedures Name Priority Associated Diagnoses Date/Time ESOPHAGOGASTRODUODENOSCOPY Cirrhosis Alc oholic (HCC) 02/10/2022 8:45 AM CDT Hypertension Portal (HCC) documented as of this encounter Visit Diagnoses Diagnosis Cirrhosis Alcoholic (HCC) Hypertension Portal (HCC) Cirrhosis Alcoholic (HCC) - Primary Cirrhosis Alcoholic (HCC) Hypertension Portal (HCC) documented in this encounter Additional Health Concerns Assessment Noted Time PHQ-9 Depression Total Score: 10 10/06/2021 5:00 PM CD T documented as of this encounter Care Teams Hostage Negotiator Relationship Specialty Start Date End Date Ana Red P.A.-C. PCP - General Internal Medicine 12/01/[address] [place] [phone] [facility] [place] lab 08/25/21 Ervin Schroeder MD Referring Provider Family Medicine 03/24/[address] [place] [address] documented as of this encounter
--- OUTSIDE RECORDS SUMMARY | 2022-01-31 04:23 | XMS_ITS | Encounter Summary ---
:1990 Author Organization [facility] Address [address] [place] [address] Care Team Providers Name Role Phone Ana Red P.A.-C. Primary Care Provider [phone] Encounter Details Date Type Department Care Team Description 01/13/2022 Clinical Communication Division of [facility] G[facility] in Lilian Schaefer [place], [place] [address] [place] [address] [address] [place] [phone] Social History Tobacco Use Types Packs/Day Years [...] do you attend denominational or Never 2021 episcopalian services? Do you belong to any clubs or No 07/17/2021 organizations such as denominational groups, unions, fraSEA or athletic groups, or school groups? How [...] or the highest technical, or vocational p formerly [facility] degree you have received? 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 - 01/14/2022 12:42 PM CDT Thank you for the update. Ms. Carias is a patient of Dr. Bermudez, one of the transplant hepatologists. We are her inpatient GI team. Concerns about transplant evaluation can be addressed at her upcomingappointment with him. Thank you. documented in this encounter Plan of Treatment Upcoming Encounters Date Type Specialty Care Team Description Office Visit [facility] Internal [facility], 2 Solitario Perez P.A.-C. [address] [facility] [place] [phone] Appointment Radiology Matthew Jerome 2 Y, M.B.B.SSuma, MJules [address] [place] [phone] Hospital Gastroenterology and [facility] 2 Encounter Hepatology Y M.B.B.SSuma, Lilian [address] [place] [phone] Surgery Gastroenterology and [facility] ESOPHAG OGASTRODUODENOSCOPY 2 Hepatology Y, M.B.B.S., MJules [address] [place] [phone] Telemedicine Transplant 2 Lab Laboratory Medicine Karin, 2 Adeline Gannon M.D., Ph.D. [address] [place] [phone] Lab Laboratory Medicine Karin, 2 Adeline Gannon M.D., Ph.D. [address] [place] [phone] Office Visit Transplant Karin, 2 Adeline Gannon M.D., Ph.D. [address] [place] [phone] Appointment Radiology Matthew Jerome 2 Y, M.B.B.SSuma, MJules [address] [place] [phone] Appointment Gastroenterology and [place], 2 Hepatology Yue Burciaga M.D. [address] [place] [phone] Office Visit Gastroenterology and Matthew Jerome 2 Hepatology Tyrell Rodriguez, Lilian [address] [place] [phone] Appointment Radiology LuisMatthew abdul 2 Tyrell Rodriguez, Lilian [address] [place] [phone] Scheduled Procedures Name Priority Associated Diagnoses Date/Time ESOPHAGOGASTRODUODENOSCOPY Cirrhosis Alc oholic (HCC) 02/10/2022 8:45 AM CDT Hypertension Portal (HCC) documented as of this encounter Visit Diagnoses Not on filedocumented in this encounter Additional Health Concerns Assessment Noted Time PHQ-9 Depression Total Score: 10 10/06/2021 5:00 PM CD T documented as of this encounter Care Teams Spotter Driver Relationship Specialty Start Date End Date Ana Red P.A.-C. PCP - General Internal Medicine 12/01/[address] [place] [phone] [facility]- [place] lab 08/25/21 Ervin Schroeder MD Referring Provider Family Medicine 03/24/[address] [place] [phone] documented as of this encounter
--- OUTSIDE RECORDS SUMMARY | 2022-01-31 04:23 | XMS_ITS | Encounter Summary ---
:1990 Author Organization [facility] Address [address] [place] [address] Care Team Providers Name Role Phone Ana Red P.A.-C. Primary Care Provider [phone] Encounter Details Date Type Department Care Team Description 01/13/2022 Clinical Communication Division of [facility] in Lilian Schaefer [place], [place] [address] [place] [address] [address] [place] [phone] Social History Tobacco Use Types Packs/Day Years [...] or relatives? How often do you attend roman catholic or Never 2021 sabianist services? Do you belong to any clubs or No 07/17/2021 organizations such as roman catholic groups, unions, fraDeporvillage or athletic groups, or school groups? 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 [facility] [place] [phone] Telemedicine Transplant 2 Lab Laboratory Medicine Karin, 2 Adeline Gannon M.D., Ph.D. [address] [place] [phone] Lab Laboratory Medicine Karin, 2 Adeline Gannon M.D., Ph.D. [address] [place] [phone] Office Visit Transplant Karin, 2 Adeline Gannon M.D., Ph.D. [address] [place] [phone] Appointment Radiology Matthew Jerome 2 Tyrell Rodriguez M.D. [facility] [place] [phone] Appointment Gastroenterology and [place], 2 Hepatology Yue Burciaga M.D. [address] [place] [phone] Office Visit Gastroenterology and Matthew Jerome 2 Hepatology Tyrell Rodriguez M.D. [address] [place] [phone] Appointment Radiology Matthew Jerome 2 YTyrell M.D. [address] [place] [phone] Scheduled Procedures Name Priority Associated Diagnoses Date/Time ESOPHAGOGASTRODUODENOSCOPY Cirrhosis Alc oholic (HCC) 02/10/2022 8:45 AM CDT Hypertension Portal (HCC) documented as of this encounter Results (ABNORMAL) CBC with Differential, Blood (01/20/2022 12:07 PM CDT) [facility] Method Time Signature Hemoglobin 7.4 (L) [...] Organization Address City/State/ZIP Code Phon e Number [facility]- [address] [place] [address] [facility] [address] [place] [address] System in [place] [address] (ABNORMAL) Comprehensive Metabolic Panel [...] Organization Address City/State/ZIP Code Phon e Number [facility]- [address] [place] [address] [facility] [place] [address] System in [place] [address] [facility] documented in this encounter Visit Diagnoses Diagnosis Cirrhosis Alcoholic (HCC) Hypertension Portal (HCC) 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 PCP - General Internal Medicine 12/01/[address] [place] [address] [place] [phone] [facility]- [place] lab 08/25/21 Ervin Schroeder MD Referring Provider Family Medicine 03/24/211979 30[facility] [place] [address] documented as of this encounter
--- OUTSIDE RECORDS SUMMARY | 2022-01-31 04:23 | XMS_ITS | Encounter Summary ---
:1990 Author Organization [facility] Address [address] [place] [address] Care Team Providers Name Role Phone Ana Red P.A.-C. Primary Care Provider [phone] Reason for Referral Transplant (Routine) - Authorized Specialty Diagnoses / Procedures Referred By Contact Refer red To Contact Transplant Surgery / Joel Tan [facility] Transplant Shala, M.S.WSuma [address] [place] [phone] Referral ID Status Reason Start Date Expiration Date Visits V isits Requested Authorized [id number] Authorized 01/13/2022 01/12/2025 1 1 Scheduling Instructions Please schedule a follow up visit with Jt vasquez [facility]. Patient prefers video visit. Thank you. Encounter Details Date Type Department Care Team Description 01/13/2022 Orders Only Department of Social Work Rajiv Tan, in [facility] Shala, M.S.W. [address] [place] [address] [place] [address] [phone] (Wo rk) Social History Tobacco Use Types [...] do you attend denominational or Never 2021 protestant services? 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 [address] [place] [phone] Appointment Radiology [facility] 2 Y, M.B.B.S., MJules [address] [place] [phone] Hospital Gastroenterology and [facility] 2 Encounter Hepatology Jennifer M.B.B.SSuma, MJules [address] [place] [phone] Surgery Gastroenterology and [facility] ESOPHAG OGASTRODUODENOSCOPY 2 Hepatology Y M.B.B.S., M.DSuma [address] [place] [address] Telemedicine Transplant 2 Lab Laboratory Medicine Karin, 2 Adeline Gannon M.D., Ph.D. [address] [place] [phone] Lab Laboratory Medicine Karin 2 Adeline Gannon M.D., Ph.D. [address] [place] [phone] Office Visit Transplant Olinda Frazier M.D., Ph.D. [address] [place] [phone] Appointment Radiology Matthew Jerome 2 YJoshuaB.BLilian Bedolla 10[address] [place] [phone] Appointment Gastroenterology and Adrianne, 2 Hepatology Yue Burciaga M.D. [address] [place] [address] Office Visit Gastroenterology and Matthew Jerome 2 Hepatology YJoshuaBSumaBLilian Bedolla 10[address] [place] [address] Appointment Radiology Matthew Jerome 2 YJoshuaBSumaBLilian Bedolla [address] [place] [address] Scheduled Procedures Name Priority Associated Diagnoses Date/Time ESOPHAGOGASTRODUODENOSCOPY Cirrhosis Alc oholic (HCC) 02/10/2022 8:45 AM CDT Hypertension Portal (HCC) Scheduled Referrals Name Type Priority Associated Order Schedule Diagnoses Transplant Liver Outpatient Referral Routine Expe cted: office visit 01/13/2022 (clinic) (Approximate), Expires: 04/14/2023 documented as of this encounter Visit Diagnoses Not on filedocumented in this encounter Additional Health Concerns Assessment Noted Time PHQ-9 Depression Total Score: 10/06/2021 5:00 PM CD T documented as of this encounter Care Teams Battalion Chief Relationship Specialty Start Date End Date Ana Red P.A.-C. PCP - General Internal Medicine 12/01/[address] [place], [place] [address] [phone] [facility] [place] lab 08/25/21 Ervin Schroeder MD Referring Provider Family Medicine 03/24/[address] [place] [address] [phone] documented as of this encounter
--- OUTSIDE RECORDS SUMMARY | 2022-01-31 04:23 | XMS_ITS | Encounter Summary ---
:1990 Author Organization [facility] Address [address] [place] [address] Care Team Providers Name Role Phone Ana Red P.A.-C. Primary Care Provider Reason for Referral Transplant (Routine) - Authorized Specialty Diagnoses / Procedures Referred By Contact Refer red To Contact Transplant Surgery / Adeline Frazier [facility] Dixie Gannon M.D., Ph.D. [address] [place] [phone] Referral ID Status Reason Start Date Expiration Date Visits V isits Requested Authorized [id number] Authorized 01/13/2022 01/12/2025 1 1 Scheduling Instructions Lab work to be done on her next visit to [place] Reason for Visit Transplant (Routine) - Closed Specialty Diagnoses / Procedures Referred By Contact Refer red To Contact Transplant Surgery / Adeline Frazier [facility] Transplant Lilian Gannon, Ph.D. 200 [place] [address] Referral ID Status Reason Start Date Expiration Date Visits Requ ested Visits Authorized [id number] Closed 10/10/2021 10/10/2022 1 1 Encounter Details Date Type Department Care Team Description 01/13/2022 Telemedicine Adeline Antoine M.D., Ph.D. 200 [place] [phone] Moderate Or [facility] Transplantation and (Depende nce) Alcohol Clinical Regeneration in [facility] ([facility]) [place], [place] (Primary Dx) 200 [place] [phone] Social History Tobacco Use Types Packs/Day [...] do you attend buddhism or Never 2021 judaism services? 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 Gender: female Address: [address] [place] [phone] Appointment conducted via real-time audio/video technology by GARY Coleman in [facility] to the patient in [place] [address] [id number]. . CHIEF COMPLAINT / REASON FOR VISIT Transplant Addiction Psychiatry Individual follow up session Pre-transplant, Liver Supervising Wafer Polishing Lead Worker: Dr. Marva Frazier M.D. Ph.D Total Counseling Time: 15 Minutes HISTORY OF PRESENT ILLNESS I had the opportunity to review the patient's medical record as it relates to transplant addiction psychiatry. The patient is a 31 y.o. female from [place], [place]. Today, the patient is presenting alonefrom her hospital room. The patient has a history of substance use and is here to review the progress towards completing the transplant center's protocol for patients who have a history of a substance use disorder and/or other recommendations for organ transplant. The patient's progress on completing recommendations includes: TREATMENT: None completed. RECOVERY (i.e. AA/NA) MEETINGS: Has attended a few online AA meetings documented in record. . SPONSOR: None. OBJECTIVE LABS: Lab Results Component Value Date ALCOHOLURINE Negative 12/15/2021 AMPHTQTU Negative 12/15/2021 BARBSCRNUR Negative 01/10/2022 BENZOCONFU Negative 12/15/2021 COCUR Negative 01/10/2022 METHADMETUR Negative 09/30/2021 OPIATESCRNUR Negative 12/15/2021 PHYCYCLSCR Negative 12/15/2021 THCCRBXYLCQU Presumptive Positive (A) 12/15/2021 THCCRBXYLCQU 19 12/15/2021 Lab Results Component Value Date ETHYLGLUCSCU Negative 09/30/2021 Lab Results Component Value Date PHOSETHANOL NEGATIVE 12/15/2021 LAST USE per patient report: Alcohol: Unknown. Cannabis: Positive on 12/15/2021.. Nicotine: Unknown.. MEDICATION: The patient's medication list includes, Lorazepam, and the patient is aware of the potential for cross addiction. 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 She reports being hospitalized with encephalopathy confusion. She verbalized a great deal of commitment to enter treatment and to do whatever I have to to get a transplant. She reports having begun the intake process for [facility]'s virtual Addiction Treatment Program. She is aware she needs to fill in some paperwork sent to her but does not recall who sent it nor it's purpose. She wants to start right away. The patient struggled to remain focused or to answer questions in any way.. Recent use history if unknown other than her drug screen from three days ago was negative. No recent PETH or ETG noted. October 10, 2021 she was given the Transplant Addiction Protocol, please note Dr. Frazier's note from that date for details. Of what she was asked she did attend three or four AA online meetings and provided documentation of same. In the record there is no indication she has begun a treatment program. Follow up will be in one month to help support patient on the recommendations. This is at least partially due to the patient being confused at this time. RECOMMENDATIONS: 1. Complete abstinence from alcohol, tobacco, cannabis, prescription opiates, Sedatives/ benzodiazepines, and all substances of abuse. 2. Outpatient level dual-diagnosis addiction treatment to develop relapse prevention skills. 3. Engagement in AA meetings (or other approved recovery meetings), at minimum once weekly. 4. Obtain and utilize a recovery sponsor. 5. Follow plan of care for chronic pain management per Radhames Neumann, Ph.D., L.P. in [place] [facility] (Pain Rehabilitation), 10/06/2021: - virtual [...] Addiction Psychiatrist based on the patient's progress. NOTE: I have sent out a release of information to the patient via the portal and via [employer]. Upon it'sreturn we can check her insurance coverage for [facility] virtual Outpatient Addiction Treatment Program. If her insurance will not cover our program there are numerous other options for her. Two of which contact information have been sent to her. ORDERS PLACED: Follow up: One month Labs: Urine Drug Screen with Confirmation, Ethyl Glucuronide with Confirmation, and Phosphatidylethanol documented in this encounter Plan of Treatment Upcoming Encounters Date Type Specialty Care Team Description Office Visit Community Internal Neda, Olinda Medicine Vernell Perez [address] [place] [address] Appointment Radiology Matthew Jerome 2 YTyrell, M.Jeri [address] [place] [phone] Hospital Gastroenterology and Matthew Jerome 2 Encounter Hepatology Joshua RodriguezBSumaB.SSuma, Lilian [address] [place] [address] Surgery Gastroenterology and Queenie, Matthew ESOPHAG OGASTRODUODENOSCOPY 2 Hepatology Joshua RodriguezBSumaBGraeme, Lilian [address] [place] [phone] Telemedicine Transplant 2 Lab Laboratory Medicine Karin, 2 Adeline Gannon M.D., Ph.D. [address] [place] [phone] Lab Laboratory Medicine Karin, 2 Adeline Gannon M.D., Ph.D. [address] [place] [phone] Office Visit Transplant Karin, 2 Adeline Gannon M.D., Ph.D. [address] [place] [phone] Appointment Radiology Matthew Jerome 2 Joshua RodriguezB.B.SSuma, Lilian [address] [place] [phone] Appointment Gastroenterology and Adrianne, 2 Hepatology Yue Burciaga M.D. 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) Alcohol (Approx imate), Remission (HCC) Expires: Ethyl Glucuronide Screen with Lab Routine Moderate Or Severe Expected: Reflex, Urine Use Disorder 02/12/2022 (Dependence) Alcohol (Approx imate), Remission (HCC) Expires: Scheduled Procedures Name Priority Associated Diagnoses Date/Time ESOPHAGOGASTRODUODENOSCOPY Cirrhosis Alc oholic (HCC) 02/10/2022 8:45 AM CDT Hypertension Portal (HCC) Scheduled Referrals Name Type Priority Associated Order Schedule Diagnoses Transplant Liver Outpatient Referral Routine Expe cted: office visit 02/12/2022 (clinic) (Approximate), Expires: 01/13/2023 documented as of this encounter Visit Diagnoses Diagnosis Cirrhosis Alcoholic (HCC) Hypertension Portal (HCC) Moderate Or Severe Use Disorder (Depende nce) Alcohol Remission (HCC) - Primary Cirrhosis Alcoholic (HCC) Hypertension Portal (HCC) documented in this encounter Additional Health Concerns Assessment Noted Time PHQ-9 Depression Total Score: 10 10/06/2021 5:00 PM CD T documented as of this encounter Care Teams Lime Kiln Worker Helper Relationship Specialty Start Date End Date Ana Red P.A.-C. PCP - General Internal Medicine 12/01/21 [facility] State ADI Chua [phone] [facility] [place] [facility] 08/25/21 Ervin Schroeder MD Referring Provider Family Medicine 03/24/[address] [place] [address] documented as of this encounter
--- OUTSIDE RECORDS SUMMARY | 2022-01-31 04:24 | XMS_ITS | Encounter Summary ---
:1990 Author Organization [facility] Address [address] [place] [address] Care Team Providers Name Role Phone Ana Red P.A.-C. Primary Care Provider Reason for Visit Reason Comments Ascites Shortness of Breath Encounter Details Date Type Department Care Team Description 12/21/2021 Emergency [facility] Katrin Gonzalez M.D., Ph.D. [address] [place] [phone] Ascites (Primary Dx) Emergency Department Clifton Liu M.D. [address] [place] [phone] [place] [phone] Social History Tobacco Use Types [...] do you attend mormon or Never 2021 advent services? Do you belong to any clubs or No 07/17/2021 organizations such as mormon groups, unions, fraPowtoon or athletic groups, or school groups? 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 zinc sulfate (ZINCATE) Take 1 capsule (220 28 capsule 0 06/202112/30/2021 220 (50 mg zinc) capsule mg total) by mouth daily with breakfast for 28 days. ergocalciferol (DRISDOL) Take 50,000 Units by 0 1 06/01/2020 01/14/2022 50,000 Unit capsule mouth once a week. Mondays ergocalciferol, vitamin 50,000 Units. 0 2 01/10/2022 D2, 10 mcg (400 unit) tablet folic acid 1 mg tablet Take 1 [...] Function Test, Hepatic Encephalopathy Without Coma (HCC) LORazepam (ATIVAN) 1 mg Take 1 tablet (1 mg 1 tablet 0 01/14/2022 tabletIndications: Mood total) by mouth once Disorder (HCC), Anxiety for 1 dose. Take 30 Disorder Unspecified minutes before your scheduled paracentesis ondansetron ODT Dissolve 1 tablet in 0 04/23/2021 01/14/2022 (ZOFRAN-ODT) 8 mg the mouth 3 (three) disintegrating tablet times a day as needed for nausea or vomiting. spironolactone Take 2 tablets (100 180 tablet 3 12/10/2021 0 01/14/2022 (ALDACTONE) 50 mg mg total) by mouth tabletIndications: daily. Cirrhosis Alcoholic (HCC), Hypertension Portal (HCC), Thrombocytopenia (HCC), Abnormal Liver Function Test, Ascites Chronic sulfamethoxazole-trimeth Take 1 tablet by 90 tablet 3 12/1001/14/2022 oprim (BACTRIM DS) mouth daily. Take 1 800-160 mg per tablet daily for tabletIndications: Cirrhosis Alcoholic (HCC), Hypertension Portal (HCC), Thrombocytopenia (HCC), Abnormal Liver Function Test, Ascites Chronic traZODone (DESYREL) 50 Take 1 tablet (50 mg 10 tablet 0 08/202101/07/2022 mg tablet total) by mouth at bedtime as needed for sleep for up to 10 doses. vitamin A 3,000 mcg Take 1 capsule 50 capsule 0 10/08/2021 0 01/14/2022 (10,000 Unit) (3,000 mcg total) by capsuleIndications: mouth 3 (three) Cirrhosis Alcoholic times a week for 50 (HCC), Deficiency doses. Vitamin A zinc gluconate 50 mg Take 50 mg by mouth 0 202101/11/2022 tablet daily with breakfast. documented as of this encounter Procedure Notes Divina Ch D.O., M.P.H. - 12/21/2021 5:42 AM CDTAssociated Order(s): [...] Care for this patient was transferred to ct at shift change. Please see associated documentation [...] she needs to follow up with her payment poster to schedule the outpatient. DIFFERENTIAL DIAGNOSIS Liver [...] Type Specialty Care Team Description Office Visit [facility] Internal [facility], Medicine Vernell Perez [address] [place] [address] Appointment Radiology Matthew Jerome 2 YTyrell M.D. [address] [place] [phone] [facility] Gastroenterology and Mousa, Matthew 2 Encounter Hepatology Tyrell Rodriguez M.D. [address] [place] [phone] Surgery Gastroenterology and Mousa, Matthew ESOPHAG OGASTRODUODENOSCOPY 2 Hepatology Tyrell Rodriguez M.D. [address] [place] [phone] Telemedicine Transplant 2 Lab Laboratory Medicine Karin, 2 Adeline Gannon M.D., Ph.D. [address] [place] [phone] Lab Laboratory Medicine Karin, 2 Adeline Gannon M.D., Ph.D. [address] [place] [phone] Office Visit Transplant Karin, 2 Adeline Gannon M.D., Ph.D. [address] [place] [phone] Appointment Radiology [facility] Matthew 2 Tyrell Rodriguez M.D. [address] [place] [phone] Appointment Gastroenterology and Adrianne, 2 Hepatology Yue Burciaga M.D. [address] [place] [phone] Office Visit Gastroenterology and [facility], Matthew 2 Hepatology Tyrell Rodriguez M.D. [address] [place] [phone] Appointment Radiology Queenie Matthew Prakash YTyrell M.D. [address] [place] [phone] Scheduled Procedures Name Priority Associated Diagnoses [...] Diagnosis Cirrhosis Alcoholic (HCC) Hypertension Portal (HCC) Ascites - Primary Cirrhosis Alcoholic (HCC) Hypertension Portal [...] human 25 % injection 25 g (COMPLETED) 0720 (New Bag - Provider: Andrew GarciaN.)0830 (Stopped - Provider: Daniel Ross R.N., CPEN) [...] (COMPLETED) 0500 (Given - Provider: Fili Hunt R.N. - Comment: given at the time of [...] documented as of this encounter Care Teams First Aid Director Relationship Specialty Start Date End Date Ana Red P.A.-C. PCP - General Internal Medicine 12/01/[address] [place] [address] [place] [phone] [facility] [place] [facility] 08/25/21 Ervin Schroeder MD Referring Provider Family Medicine 03/24/[address] [place] [address] [place] [phone] documented as of this encounter
--- OUTSIDE RECORDS SUMMARY | 2022-01-31 04:24 | XMS_ITS | Encounter Summary ---
:1990 Author Organization [facility] Address [address] [place] [address] Care Team Providers Name Role Phone Ana Red P.A.-C. Primary Care Provider Reason for Visit Reason Comments Phone Contact Appointment LABS Encounter Details Date Type Department Care Team Description 12/11/2021 Clinical Ramirez Barajas, Phone Contact; Communication Center for [facility] (Jagdeep HERRON) Transplantation and Lilian, Ph.D. Clinical [facility] [address] in [facility] [address] [facility] [phone] Social History Tobacco Use Types Packs/Day Years [...] do you attend scientology or Never 2021 yazidism services? Do you belong to any clubs or No 07/17/2021 organizations such as scientology groups, unions, fraternal or athletic groups, or [...] or the highest technical, or vocational p [facility] degree you have received? 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 documented as of this encounter Miscellaneous Notes [...] Community Internal Neda, Olinda Medicine Vernell Perez [address] [place] [address] [place] [address] Appointment Radiology Matthew Jerome 2 Y M.B.BSumaSLilian Moise [address] [place] [phone] Hospital Gastroenterology and Matthew Jerome 2 Encounter Hepatology Joshua RodriguezB.BSumaSLilian Moise [address] [place] [phone] Surgery Gastroenterology and Matthew Jerome ESOPHAG OGASTRODUODENOSCOPY 2 Hepatology Y M.B.B.SSuma, Lilian [address] [place] [phone] Telemedicine Transplant 2 Lab Laboratory Medicine Karin, Olinda Gannon M.D., Ph.D. [address] [place] [phone] Lab Laboratory Medicine Olinda Frazier M.D., Ph.D. [address] [place] [phone] Office Visit Transplant Olinda Frazier M.D., Ph.D. [address] [place] [phone] Appointment Radiology Matthew Jerome 2 Y, MLilian Perez [address] [place] [phone] Appointment Gastroenterology and Adrianne 2 Hepatology Yue Burciaga M.D. [address] [place] [address] Office Visit Gastroenterology and Matthew Jerome 2 Hepatology Tyrell Rodriguez M.D. [address] [place] [phone] Appointment Radiology Matthew Jerome 2, M.B.B.S., M.D. [address] [place] [phone] Scheduled Procedures Name Priority Associated Diagnoses Date/Time ESOPHAGOGASTRODUODENOSCOPY Cirrhosis Alc oholic (HCC) 02/10/2022 8:45 AM CDT Hypertension Portal (HCC) documented as of this encounter Visit Diagnoses Not on filedocumented in this encounter Additional Health Concerns Assessment Noted Time PHQ-9 Depression Total Score: 10 10/06/2021 5:00 PM CD T documented as of this encounter Care Teams Cable Technician Relationship Specialty Start Date End Date Ana Red P.A.-C. PCP - General Internal Medicine 12/01/[address] [place] [phone] [facility] [place] lab 08/25/21 Ervin Schroeder MD Referring Provider Family Medicine 03/24/[address] [place] [address] documented as of this encounter
--- OUTSIDE RECORDS SUMMARY | 2022-01-31 04:24 | XMS_ITS | Encounter Summary ---
:1990 Author Organization [facility] Address [address] [place] [address] Care Team Providers Name Role Phone Ana Red P.A.-C. Primary Care Provider [phone] Encounter Details Date Type Department Care Team Description 12/04/2021 Clinical Communication Division of J[facility], Gastroenterology in Elizabeth Echevarria [place], [place] [address] [facility] [address] [place] [phone] Social History Tobacco Use Types Packs/Day Years [...] do you attend congregation or Never 2021 uatsdin services? 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 [facility]5 [place] [address] Telemedicine Transplant 2 Lab Laboratory Medicine Karin, 2 Adeline Gannon M.D., Ph.D. [address] [place] [phone] Lab Laboratory Medicine Karin, 2 Adeline Gannon M.D., Ph.D. [address] [place] [phone] Office Visit Transplant Karin, 2 Adeline Gannon M.D., Ph.D. [address] [place] [phone] Appointment Radiology Matthew Jerome 2, M.BSumaBLilian Bedolla [address] [place] [phone] Appointment Gastroenterology and Adrianne, 2 Hepatology Yue Burciaga M.D. [address] [place] [phone] Office Visit Gastroenterology and Matthew Jerome 2 Hepatology Joshua RodriguezBSumaBLilian Bedolla [address] [place] [phone] Appointment Radiology MoMatthew abdul 2, M.B.B.S., M.D. [facility]5 [place] [phone] Scheduled Procedures Name Priority Associated Diagnoses Date/Time ESOPHAGOGASTRODUODENOSCOPY Cirrhosis Alc oholic (HCC) 02/10/2022 8:45 AM CDT Hypertension Portal (HCC) documented as of this encounter Visit Diagnoses Diagnosis Ascites - Primary Cirrhosis Alcoholic (HCC) Hypertension Portal (HCC) documented in this encounter Additional Health Concerns Assessment Noted Time PHQ-9 Depression Total Score: 10/06/2021 5:00 PM CD T documented as of this encounter Care Teams Skein Spooler Relationship Specialty Start Date End Date Ana Red P.A.-C. PCP - General Internal Medicine 12/01/[address] [place] [phone] [facility] [place] lab 08/25/21 Ervin Schroeder MD Referring Provider Family Medicine 03/24/[address] [place] [phone] documented as of this encounter
--- OUTSIDE RECORDS SUMMARY | 2022-01-31 04:24 | XMS_ITS | Encounter Summary ---
:1990 Author Organization [facility] Address [address] [place] [address] Care Team Providers Name Role Phone Ana Red P.A.-C. Primary Care Provider [phone] Encounter Details Date Type Department Care Team Description 12/12/2021 Documentation Ramirez Landon [place], [place] meena Gannon for Transplantation and L.Kirit.Katrin.S. Hazel, M.S.W. Clinical Regeneration in [address] [place] [address] [address] [place] [address] [place], [place] [phone] [phone] Social History Tobacco Use Types Packs/Day Years [...] do you attend shinto or Never 2021 buddhist services? Do you belong to any clubs or No 07/17/2021 organizations such as shinto groups, unions, fraVeterans Business Services Organization or athletic groups, or school groups? How [...] or vocational p [facility] degree you have received? 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 He stated he has spoken with his [...] management per Radhames Neumann, Ph.D., L.P. in [place] [facility] (Pain Rehabilitation), 10/06/2021: - virtual [...] Community Internal Neda, Olinda Medicine Vernell Perez [address] [place] [phone] Appointment Radiology Matthew Jerome 2 YElizabeth.B.BLilian Bedolla [address] [place] [phone] Hospital Gastroenterology and Matthew Jerome 2 Encounter Hepatology Joshua RodriguezB.BSumaSLilian Moise [address] [place] [phone] Surgery Gastroenterology and Matthew Jerome ESOPHAG OGASTRODUODENOSCOPY 2 Hepatology YElizabeth.B.B.SSuma, Lilian [address] [place] [phone] Telemedicine Transplant 2 Lab Laboratory Medicine Olinda Frazier M.D., Ph.D. [address] [place] [phone] Lab Laboratory Medicine Olinda Frazier M.D., Ph.D. [address] [place] [phone] Office Visit Transplant Olinda Frazier M.D., Ph.D. [address] [place] [phone] Appointment Radiology Matthew Jerome 2 Y M.Lilian Hudson 1025 [place] [phone] Appointment Gastroenterology and Olinda Silver Hepatology Yue Burciaga M.D. [address] [place] [address] Office Visit Gastroenterology and Matthew Jerome 2 Hepatology Tyrell Rodriguez M.D. 1025 [place] [phone] Appointment Radiology Matthew Jerome 2, M.B.B.S., M.D. 1025 [place] [phone] Scheduled Procedures Name Priority Associated Diagnoses Date/Time ESOPHAGOGASTRODUODENOSCOPY Cirrhosis Alc oholic (HCC) 02/10/2022 8:45 AM CDT Hypertension Portal (HCC) documented as of this encounter Visit Diagnoses Not on filedocumented in this encounter Additional Health Concerns Assessment Noted Time PHQ-9 Depression Total Score: 10 10/06/2021 5:00 PM CD T documented as of this encounter Care Teams Torch Solderer Relationship Specialty Start Date End Date Ana Red P.A.-C. PCP - General Internal Medicine 12/01/[address] [place] [phone] [facility]- [place] lab 08/25/21 Ervin Schroeder MD Referring Provider Family Medicine 03/24/[address] [place] [phone] documented as of this encounter
--- OUTSIDE RECORDS SUMMARY | 2022-01-31 04:24 | XMS_ITS | Encounter Summary ---
:1990 Author Organization [facility] Address [address] [place] [address] Care Team Providers Name Role Phone Ana Red P.A.-C. Primary Care Provider [phone] Encounter Details Date Type Department Care Team Description 12/11/2021 Clinical Communication Department of Felicita Spicer Gastroenterology in E, L.P.N. [place], [place] [phone] [facility]5 [facility] ([facility] [place] [phone] Social History Tobacco Use Types Packs/Day [...] do you attend yarsani or Never 2021 pentecostalism services? Do you belong to any clubs or No 07/17/2021 organizations such as yarsani groups, unions, fraAlignment Healthcare or athletic groups, or school groups? 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 - 12/11/2021 10:51 AM CDT Precision Thread Grinder Operator called and spoke with Radiology nursing [...] seems they used it for her in [facility] last week and it worked very well for her. Otherwise she has significant anxiety from the procedure. Please let me know Thank you OM documented in this encounter Plan of Treatment Upcoming Encounters Date Type Specialty Care Team Description Office Visit Community Internal [facility], 2 Medicine Vernell Perez 300 [place] [address] Appointment Radiology Matthew Jeroem 2 Tyrell Rodriguez M.D. [address] [place] [phone] Hospital Gastroenterology and Matthew Jerome 2 Encounter Hepatology Tyrell Rodriguez M.D. [address] [place] [phone] Surgery Gastroenterology and Matthew Jerome ESOPHAG OGASTRODUODENOSCOPY 2 Hepatology Tyrell Rodriguez, Lilian [address] [place] [phone] Telemedicine Transplant 2 Lab Laboratory Medicine Karin, Olinda Gannon M.D., Ph.D. [address] [place] [phone] Lab Laboratory Medicine KarinOlinda Adeline Gannon M.D., Ph.D. [address] [place] [phone] Office Visit Transplant Karin, Olinda Adeline Gannon M.D., Ph.D. [address] [place] [phone] Appointment Radiology Matthew Jerome 2 YElizabeth.B.B.SSuma, Lilian [address] [place] [phone] Appointment Gastroenterology and Adrianne, 2 Hepatology Yue Burciaga M.D. [address] [place] [phone] Office Visit Gastroenterology and Matthew Jerome 2 Hepatology Elizabeth Rodriguez.B.B.SLilian Moise [address] [place] [phone] Appointment Radiology Matthew Jerome 2 Y M.B.B.SLilian Moise [address] [place] [phone] Scheduled Procedures Name Priority Associated Diagnoses Date/Time ESOPHAGOGASTRODUODENOSCOPY Cirrhosis Alc oholic (HCC) 02/10/2022 8:45 AM CDT Hypertension Portal (HCC) documented as of this encounter Visit Diagnoses Diagnosis Cirrhosis Alcoholic (HCC) Hypertension Portal (HCC) Ascites Chronic - Primary Cirrhosis Alcoholic (HCC) Hypertension Portal (HCC) documented in this encounter Additional Health Concerns Assessment Noted Time PHQ-9 Depression Total Score: 10 10/06/2021 5:00 PM CD T documented as of this encounter Care Teams Plant Machinist Relationship Specialty Start Date End Date Ana Red P.A.-C. PCP - General Internal Medicine 12/01/[address] [place] [phone] [facility]- [place] lab 08/25/21 Ervin Schroeder MD Referring Provider Family Medicine 03/24/[address] [place] [phone] documented as of this encounter
--- OUTSIDE RECORDS SUMMARY | 2022-01-31 04:24 | XMS_ITS | Encounter Summary ---
:1990 Author Organization [facility] Address [address] [place] [address] Care Team Providers Name Role Phone Ana Red P.A.-C. Primary Care Provider [phone] Encounter Details Date Type Department Care Team Description 12/04/2021 Clinical Communication Division of J[facility], Gastroenterology in Elizabeth Echevarria [place], [place] [address] [facility] [address] [place] [phone] Social History Tobacco Use Types Packs/Day Years [...] do you attend religious or Never 2021 roman catholic services? 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 [facility] [place] [phone] Telemedicine Transplant 2 Lab Laboratory Medicine Karin, 2 Adeline Gannon M.D., Ph.D. [address] [place] [phone] Lab Laboratory Medicine Karin, 2 Adeline Gannon M.D., Ph.D. [address] [place] [phone] Office Visit Transplant Karin, 2 Adeline Gannon M.D., Ph.D. [address] [place] [phone] Appointment Radiology Matthew Jerome 2, M.BSumaBLilian Bedolla [address] [place] [phone] Appointment Gastroenterology and Adrianne, 2 Hepatology Yue Burciaga M.D. [address] [place] [phone] Office Visit Gastroenterology and Matthew Jerome 2 Hepatology Joshua RodriguezBSumaBLilian Bedolla [address] [place] [phone] Appointment Radiology MoMatthew abdul 2, M.B.B.S., M.D. [facility] [place] [phone] Scheduled Procedures Name Priority Associated Diagnoses Date/Time ESOPHAGOGASTRODUODENOSCOPY Cirrhosis Alc oholic (HCC) 02/10/2022 8:45 AM CDT Hypertension Portal (HCC) documented as of this encounter Visit Diagnoses Diagnosis Ascites - Primary Cirrhosis Alcoholic (HCC) Hypertension Portal (HCC) documented in this encounter Additional Health Concerns Assessment Noted Time PHQ-9 Depression Total Score: 10/06/2021 5:00 PM CD T documented as of this encounter Care Teams Chemical Process Operator Relationship Specialty Start Date End Date Ana Red P.A.-C. PCP - General Internal Medicine 12/01/[address] [place] [phone] [facility]- [place] lab 08/25/21 Ervin Schroeder MD Referring Provider Family Medicine 03/24/[address] [place] [phone] documented as of this encounter
--- OUTSIDE RECORDS SUMMARY | 2022-01-31 04:24 | XMS_ITS | Encounter Summary ---
:1990 Author Organization [facility] Address [address] [place] [address] Care Team Providers Name Role Phone Ana Red PSumaASuma-CSuma Primary Care Provider Reason for Visit Reason Comments Disability Parking Certificate Encounter Details Date Type Department Care Team Description 12/11/2021 Clinical Communication Department of [facility] Internal Ana, Edmund feliz Medicine in P.A.-C. [place], [address] [facility] 300 [facility] [phone] [place] [phone] (Work) [phone] Social History Tobacco Use Types Packs/Day Years [...] do you attend presybeterian or Never 2021 hindu services? Do you belong to any clubs or No 07/17/2021 organizations such as presybeterian groups, unions, fraEight19 or athletic groups, or school groups? 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 - 12/11/2021 9:16 AM CDT Disability Parking Certificate form request received. Please mail to patient after provider has signed. documented in this encounter Plan of Treatment Upcoming Encounters Date Type Specialty Care Team Description Office Visit Community Internal [facility], 2 Medicine Vernell Perez 300 [place] [phone] Appointment Radiology Matthew Jerome 2 Y, M.B.B.SSuma, MJules [address] [place] [phone] Hospital Gastroenterology and Queenie Matthew 2 Encounter Hepatology Jennifer M.B.B.SSuma, Lilian [address] [place] [phone] Surgery Gastroenterology and Matthew Jerome ESOPHAG OGASTRODUODENOSCOPY 2 Hepatology Jennifer M.B.B.SSuma, Lilian [address] [place] [phone] Telemedicine Transplant 2 Lab Laboratory Medicine Karin, Olinda Gannon M.D., Ph.D. [address] [place] [phone] Lab Laboratory Medicine Olinda Frazier M.D., Ph.D. [address] [place] [phone] Office Visit Transplant Olinda Frazier M.D., Ph.D. [address] [place] [phone] Appointment Radiology Matthew Jerome 2 Y, M.B.B.SSuma, MJules [address] [place] [phone] Appointment Gastroenterology and Adrianne, 2 Hepatology Yue Burciaga M.D. [address] [place] [phone] Office Visit Gastroenterology and Matthew Jerome 2 Hepatology Tyrell Rodriguez M.D. 1025 [place] [phone] Appointment Radiology LuisMatthew abdul 2 YTyrell M.D. 1025 [place] [phone] Scheduled Procedures Name Priority Associated Diagnoses Date/Time ESOPHAGOGASTRODUODENOSCOPY Cirrhosis Alc oholic (HCC) 02/10/2022 8:45 AM CDT Hypertension Portal (HCC) documented as of this encounter Visit Diagnoses Not on filedocumented in this encounter Additional Health Concerns Assessment Noted Time PHQ-9 Depression Total Score: 10 10/06/2021 5:00 PM CD T documented as of this encounter Care Teams Yarn Bleaching Machine Operator Relationship Specialty Start Date End Date Ana Red P.A.-C. PCP - General Internal Medicine 12/01/[address] [place] [phone] [facility]- [place] lab 08/25/21 Ervin Schroeder MD Referring Provider Family Medicine 03/24/[address] [place] [phone] documented as of this encounter
--- OUTSIDE RECORDS SUMMARY | 2022-01-31 04:24 | XMS_ITS | Encounter Summary ---
:1990 Author Organization [facility] Address [address] [place] [address] Care Team Providers Name Role Phone Ana Red P.A.-C. Primary Care Provider [phone] Reason for Referral Outpatient (Routine) - Authorized Specialty Diagnoses / Procedures Referred By Contact Refer red To Contact [facility] Internal Ana Red [facility] P.ASuma-CSuma [address] [facility] [place] [place] [address] Referral ID Status Reason Start Date Expiration Date Visits V isits Requested Authorized [id number] Authorized 01/07/2022 01/06/2025 1 1 Reason for Visit Reason Comments Follow-up Cirrhosis and Hepatic Enceph alopathy. Back Pain Back Pain for 3 1/2 weeks. Outpatient (Routine) - Closed Specialty Diagnoses / Procedures Referred By Contact Refer brianda To Contact [facility] JESSE [place] [facility] Adair Correa [address] [place] [address] Referral ID Status Reason Start Date Expiration Date Visits Requ ested Visits Authorized [id number] Closed 12/02/2021 12/02/2022 1 1 Encounter Details Date Type Department Care Team Description 01/07/2022 Office Visit Department of Internal [place], Hyper tension Portal (HCC) (Primary Dx); [place] Cirrhosis Alcoholic (HCC); [place] [address] Ascites; [address] [place], [place] Pancreatitis Chronic (HCC); [place] [address] Pain Low Back Mechanical [phone] Social History Tobacco Use Types Packs/Day Years [...] do you attend moravian or Never 2021 baptist services? 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 - 01/07/2022 3:30 PM CDT SUBJECTIVE CHIEF COMPLAINT/REASON FOR VISIT Chief Complaint Patient presents with Follow-up Cirrhosis and Hepatic Encephalopathy. Back Pain Back Pain for 3 1/2 weeks. HISTORY OF PRESENT ILLNESS Catia Carias is a pleasant 31 y.o. female with a past medical history of cirrhosis, hepatic failure, chronic pancreatitis, and portal hypertension who presents to the clinic today to establish care. She previously received her medical care through [facility]. 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 She was a heavy drinking in her 20s. She follows with GI and hepatology in [place]. She gets frequent paracentesis for ascites. She denies abdominal pain, fever, and chills today. She would like to discuss back pain today. She feels that she has had back pain that came out of nowhere three weeks ago. The pain is located in her low back but she tells me in migrates from side to side. She has tried ice/heat, lidocaine patches, and sleeping in different positions. She denies bowel or bladder dysfunction, history of trauma, and leg weakness. She reports her back pain feels bestwhen she is sleeping. She denies radicular symptoms. She is having difficulty with sleep. She takes 50 mg of trazodone as needed but doesn't feel this ishelpful. She tells me she has already tried behavior strategies such as staying on a sleep schedule,limiting screen time prior to bed, and keeping her bedroom dark. She has a previous smoking history. She quit smoking 4 months ago. The following portions of the patient's history [...] Pretransplant Recipient Evaluation Exam Deficiency Vitamin A [employer] Use Of Opiate Analgesic Nicotine Dependence Cigarettes Chronic Pain Syndrome COVID-19 Infection Anxiety ALLERGIES/CONTRAINDICATIONS Allergies Allergen Reactions Ciprofloxacin Other (see comments) Encephalopathy Gabapentin Other (see comments) Encephalopathy Azithromycin GI intolerance and Nausea And Vomiting Other reaction(s): Nausea/Vomiting Other reaction(s): Other (see comments) Unknown Other reaction(s): Unknown Other reaction(s): GI intolerance CURRENT MEDICATIONS Current Outpatient Medications: diclofenac sodium (VOLTAREN) 1 % gel, Apply 2 g topically 4 (four) times a day. Apply to painful area on skin., Disp: 20 g, Rfl: 0 ergocalciferol (DRISDOL) 50,000 Unit capsule, Take 50,000 Units by mouth once a week., Disp: , Rfl: ergocalciferol, vitamin D2, 10 mcg (400 unit) tablet, 50,000 Units., Disp: , Rfl: folic acid 1 mg tablet, Take 1 [...] by intrauterine route continuously., Disp: , Rfl: LORazepam (ATIVAN) 1 mg tablet, Take 1 tablet (1 mg total) by mouth once for 1 dose. Take 30 minutes before your scheduled paracentesis, Disp: 1 tablet, Rfl: 0 magnesium oxide (MAG-OX) 400 mg (241.3 mg magnesium) tablet, Take 1 tablet (400 mg total) by mouth 2 (two) times a day before breakfast and dinner., Disp: 60 tablet, Rfl: 1 ondansetron ODT (ZOFRAN-ODT) 8 mg disintegrating tablet, Take 1 tablet by mouth 3 (three) times a day as needed., Disp: , Rfl: pantoprazole (PROTONIX) 40 mg EC tablet, Take 1 tablet (40 mg total) by mouth every morning before breakfast., Disp: 30 tablet, Rfl: 1 rifAXIMin (XIFAXAN) 550 mg tablet, Take 1 tablet (550 mg total) by mouth 2 (two) times a day., Disp: 180 tablet, Rfl: 3 spironolactone (ALDACTONE) 50 mg tablet, Take 2 tablets (100 mg total) by mouth daily., Disp: 180 tablet, Rfl: 3 sulfamethoxazole-trimethoprim (BACTRIM DS) 800-160 mg per tablet, Take 1 tablet by mouth daily. Take 1 tablet daily for, Disp: 90 tablet, Rfl: 3 thiamine (VITAMIN B1) 100 mg tablet, Take 100 mg by mouth daily., Disp: , Rfl: vitamin A 3,000 mcg (10,000 Unit) capsule, Take 1 capsule (3,000 mcg total) by mouth 3 (three) times a week for 50 doses., Disp: 50 capsule, Rfl: 0 traZODone (DESYREL) 100 mg tablet, Take 1 tablet (100 mg total) by mouth at bedtime as needed for sleep., Disp: 30 tablet, Rfl: 0 OBJECTIVE VITAL SIGNS Vitals: 01/07/22 1525 BP: 128/62 Pulse: 107 Resp: 24 Temp: 36.4 ??C SpO2: 95% PHYSICAL EXAMINATION General: 31 y.o. female laying on exam table with a heated blanket and cup of ice. Awake, alert, ageappropriate. Jaundice in appearance. HEENT: Head is normocephalic, atraumatic. Scleral icterus. Cardiovascular: S1 and S2 appreciated. Lungs: Clear to auscultation bilaterally with no adventitious sounds Abdomen: Bowel sounds present in all quadrants. Soft, non-tender. Positive fluid wave. Ascites present. Skin: Jaundice. Neurologic: Alert and oriented x3. ASSESSMENT / PLAN IMPRESSION/REPORT/PLAN: #1 Hypertension Portal (HCC) #2 Cirrhosis Alcoholic (HCC) #3 Ascites #4 Pancreatitis Chronic (HCC) Follows with GI and Hepatology in [place]. She has a paracentesis scheduled for two days from now.She has a visit with liver transplant scheduled for later this month. She also has labs scheduled for later this month. #5 Pain Low Back Mechanical Acute low back pain ongoing for three weeks. No red flag symptoms. I do not see a need for imaging at this time. I encouraged back stretching and exercises and provided a hand out of this. She will continue using Voltaren gel and lidocaine patches for pain control. I will also send a short course of flexeril to her pharmacy. Side effects discussed. #6 Insomnia We discussed sleep hygiene and recommendations such as waking up and going to sleep at the same timeeach night, keeping a dark environment for sleep, and limiting screen time prior to bed. Patient feels she has tried these interventions. We will increase trazodone to 100 mg at bedtime prn. #7 Cervical Cancer Screening She is due for this. We will plan to complete this at an upcoming visit. She reports no history of abnormal pap smears. We cannot see records from [place]. Other orders - [facility] office visit (clinic) - traZODone (DESYREL) 100 mg tablet; Take 1 tablet (100 mg total) by mouth at bedtime as needed for sleep., Starting 01/07/2022, Normal - [facility] office visit (clinic); Future; Expected date: 04/08/2022 If symptoms worsen or do not improve, patient is instructed to seek further medical attention. All questions have been answered. Patient demonstrated understanding and verbalized agreement with the plan. FOLLOW UP: 3 months or sooner if needed. Ana Red P.A.-C. documented in this encounter Miscellaneous Notes Addendum Note - Ana Red P.A.-C. - 01/07/2022 3:30 PM CDT Addended by: ANA RED on: 01/19/2022 02:17 PM Modules accepted: Orders Addendum Note - Ana Red P.A.-C. - 01/07/2022 3:30 PM CDT Addended by: ANA RED on: 01/19/2022 02:20 PM Modules accepted: Orders documented in this encounter Plan of Treatment Upcoming Encounters Date Type Specialty Care Team Description Office Visit Community Internal Olinda Red Medicine Vernell Perez [address] [facility] [place] [address] Appointment Radiology Matthew Jerome 2 YTyrell, MJules [facility] [place] [address] [facility] Gastroenterology and Mousa, Matthew 2 Encounter Hepatology Tyrell Rodriguez M.D. [address] [place] [phone] Surgery Gastroenterology and Mousa, Matthew ESOPHAG OGASTRODUODENOSCOPY 2 Hepatology Tyrell Rodriguez M.D. [address] [place] [phone] Telemedicine Transplant 2 Lab Laboratory Medicine Karin, 2 Adeline Gannon M.D., Ph.D. [address] [place] [phone] Lab Laboratory Medicine Karin, 2 Adeline Gannon M.D., Ph.D. [address] [place] [phone] Office Visit Transplant Karin, 2 Adeline Gannon M.D., Ph.D. [address] [place] [phone] Appointment Radiology Queenie Matthew 2 Vik RodriguezBLilian Bedolla [address] [place] [phone] Appointment Gastroenterology and Adrianne, 2 Hepatology Yue Burciaga M.D. [address] [place] [phone] Office Visit Gastroenterology and Neusa, Matthew 2 Hepatology Tyrell Rodriguez M.D. [address] [place] [phone] Appointment Radiology Matthew Jerome 2 Y, Tyrell, Lilian [address] [place] [address] Scheduled Procedures Name Priority Associated Diagnoses Date/Time ESOPHAGOGASTRODUODENOSCOPY Cirrhosis Alc oholic (HCC) 02/10/2022 8:45 AM CDT Hypertension Portal (HCC) Scheduled Referrals Name Type Priority Associated Diagnoses Order S [facility] Internal Outpatient Referral Routine Ex pected: Medicine office 04/08/2022 visit (clinic) (Approximate) , Expires: 04/08/2023 documented as of this encounter Visit Diagnoses Diagnosis Cirrhosis Alcoholic (HCC) Hypertension Portal (HCC) Hypertension Portal (HCC) - Primary Cirrhosis Alcoholic (HCC) Ascites Pancreatitis Chronic (HCC) Pain Low Back Mechanical Cirrhosis Alcoholic (HCC) Hypertension Portal (HCC) documented in this encounter Additional Health Concerns Infection Onset Date Last Indicated Resolved Time COVID19 Pending 01/09/2022 01/09/2022 01/09/2022 2:05 PM CDT Assessment Noted Time PHQ-9 Depression Total Score: 10 10/06/2021 5:00 PM CD T documented as of this encounter Care Teams Professional Wrestler Relationship Specialty Start Date End Date Ana Red P.A.-C. PCP - General Internal Medicine 12/01/[address] [place] [phone] [facility] [place] [facility] 08/25/21 Ervin Schroeder MD Referring Provider Family Medicine 03/24/[address] [place] [phone] documented as of this encounter
--- OUTSIDE RECORDS SUMMARY | 2022-01-31 04:24 | XMS_ITS | Encounter Summary ---
:1990 Author Organization [facility] Address [address] [place] [address] Care Team Providers Name Role Phone Ana Red P.A.-C. Primary Care Provider [phone] Reason for Visit Reason Comments Back Pain Encounter Details Date Type Department Care Team Description 12/19/2021 - Emergency [facility] Katrin Gonzalez M.D., Ph.D. [address] [place] [phone] Pain Back (Primary 12/20/2021 Emergency Department Migue Garcia Jr., M.D. [address] [place] [phone] Dx) [address] [place] [phone] Social History Tobacco Use Types Packs/Day [...] do you attend amish or Never 2021 jewish services? 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 documented as of this encounter ED Notes [...] plan. I anticipate discharge thereafter with follow-up deandre instructions for any worsening or worrisome signs or symptoms. Final Diagnoses: as of 12/20/21 0740 Pain Back Ted Gonzalez M.D., Ph.D. 12/20/21 0979 Harinder Nguyễn M.D. - 12/20/2021 2:40 AM [...] Diagnoses: as of 12/20/21 0731 Pain Back Harinder Nguyễn M.D. Resident 12/20/21 0732 Benja Rosado R.N. [...] SOB, worsening abd swelling etc. Benja Rosado RSumaN. 12/20/21 0004 documented in this encounter Plan of Treatment Upcoming Encounters Date Type Specialty Care Team Description Office Visit [facility] Internal Neda, Medicine Vernell Perez 300 [facility] [place] [address] Appointment Radiology Matthew Jerome 2 Y, Lilian Santillan [address] [place] [address], [place] [address] Hospital Gastroenterology and Mochantell, Matthew 2 Encounter Hepatology Joshua RodriguezB.B.SSuma, Lilian [address] [place] [phone] Surgery Gastroenterology and Mousa, Matthew ESOPHAG OGASTRODUODENOSCOPY 2 Hepatology Jennifer M.B.B.SSuma, Lilian [address] [place] [phone] Telemedicine Transplant 2 Lab Laboratory Medicine Karin, 2 Adeline Gannon M.D., Ph.D. [address] [place] [phone] Lab Laboratory Medicine Karin, 2 Adeline Gannon M.D., Ph.D. [address] [place] [phone] Office Visit Transplant Karin, 2 Adeline Gannon M.D., Ph.D. [address] [place] [phone] Appointment Radiology Queenie Matthew 2 Jennifer M.B.B.SSuma, Lilian [address] [place] [phone] Appointment Gastroenterology and Adrianne, 2 Hepatology Yue Burciaga M.D. [address] [place] [phone] Office Visit Gastroenterology and [place], Matthew 2 Hepatology Tyrell Rodriguez M.D. [address] [place] [address] Appointment Radiology Matthew Jerome 2 Tyrell Rodriguez M.D. [address] [place] [address] Scheduled Procedures Name Priority Associated [...] Dipstick, POCT, Urine (12/20/2021 4:20 AM CDT) [facility] Method Time Signature Glucose, POCT, Negative Negative 12/20/2021 PCED U mg/dL 4:22 AM CDT Ketone, POCT, Negative Negative 12/20/2021 PCED U mg/dL 4:22 AM CDT Specific 1.020 1.005 - 12/20/2021 PCED [place], POCT, 1.030 4:22 AM CDT U Blood, [...] City/State/ZIP Code Phon e Number POC RST [facility] [address] [place] [address] OUTPATIENT LABS PCED [facility] [place] [address] [place] POC [address] Dipstick, Urine (12/20/2021 4:17 AM CDT) [facility] Method Time Signature Hemoglobin, Negative Negative 12/20/2021 [...] Organization Address City/State/ZIP Code Phon e Number [facility] - [address] [place], [place] [address] [place] [address] [place] [address] [address] [facility] pH, Random, Urine (12/20/2021 4:17 AM CDT) P athologist Signature pH, Random, U 5.5 4.5 - 8.0 12/20/2021 DTL 5:17 AM CDT Specimen Anatomical Collection Method Collection Time Receive d Time (Source) Location / / Volume Laterality Urine 12/20/2021 4:17 AM 2 5:00 CDT AM CDT Harinder Nguyễn M.D. LAB URINE ORDERABLES Performing Organization Address City/State/ZIP Code Phon e Number [facility] - 200 [place], [place] [address] [place] [address] [place] [address] [address] [facility] Osmolality, Urine (12/20/2021 4:17 AM CDT) P athologist Signature Osmolality, U 451 150 - 1150 12/20/2021 DTL mOsm/kg 5:17 AM CDT Specimen Anatomical Collection Method Collection Time Receive d Time (Source) Location / / Volume Laterality Urine 12/20/2021 4:17 AM 2 5:00 CDT AM CDT Harinder Nguyễn M.D. LAB URINE ORDERABLES Performing Organization Address City/State/ZIP Code Phon e Number [facility] - [address] [place], [place] [address] [address] [place] [address] [address] Microscopic Manual (12/20/2021 4:17 AM CDT) P athologist Signature Microscopy Normal 12/20/2021 DTL 5:29 AM CDT Casts, Hyaline 1-3 /lpf 12/20/2021 DTL 5:29 AM CDT Specimen Anatomical Collection Method Collection Time Receive d Time (Source) Location / / Volume Laterality Urine 12/20/2021 4:17 AM 5:00 CDT AM CDT Harinder Nguyễn M.D. LAB URINE ORDERABLES Performing Organization Address [facility] Phon e Number [facility] - [address] [place] [address] Bacterial Culture, Aerobic + Susc, Urine (12/20/2021 4:17 AM CDT) [facility] Method Time Signature Urine Culture No growth 12/21/2021 DT after 1 day 8:03 AM CDT of incubation. Specimen Anatomical Collection Method Collection Time Receive d Time (Source) Location / / Volume Laterality Urine (Urine, 12/20/2021 4:17 AM 12/21/19 7:48 Midstream) CDT AM CDT Comment: Specimen Source Site: Urine Harinder Nguyễn M.D. LAB MICROBIOLOGY - GENERAL O RDERABLES Performing Organization Address City/[facility] Phon e Number [facility] - [address] [place] [address] [address] [facility] [place] [address] Urinalysis with Microscopic: Urine, Midstream (12/20/2021 4:17 AM CDT) [facility] Method Time Signature Source Urine, Urine, 12/20/2021 [...] M.D. LAB URINE ORDERABLES Performing Organization Address City/[facility]/ZIP Code Phon e Number [facility] - 200 [place], [place] [address] [facility] DTL [address] Lactate (12/20/2021 3:36 AM CDT) P athologist Signature Lactate, P 1.8 0.5 - 2.2 12/20/2021 STMA mmol/L 3:54 AM CDT Specimen Anatomical Collection Method Collection Time Receive d Time (Source) Location / / Volume Laterality Blood (Blood, 12/20/2021 3:36 AM 12/21/19 3:41 Venous) CDT AM CDT Harinder Nguyễn M.D. LAB BLOOD NON ADD-ON Performing Organization Address City/[facility]/ZIP Code Phon e Number [facility] - [address] [place], [place] [address] [facility] [place] [address] Lipase (12/20/2021 3:36 AM CDT) P athologist Signature Lipase, S 36 13 - 60 U/L 12/20/2021 4:45 DTL AM CDT Specimen Anatomical Collection Method Collection Time Receive d Time (Source) Location / / Volume Laterality Blood (Blood, 12/20/2021 3:36 AM 12/21/19 22 4:00 Venous) CDT AM CDT Harinder Nguyễn M.D. LAB BLOOD ADD-ON Performing Organization Address City/State/ZIP Code Phon e Number [facility] - [address] [place], [place] [address] [facility] [place] [place] [address] Laboratories-[facility] [address] [facility] (ABNORMAL) Hepatic Function Panel (12/20/2021 3:36 AM CDT) Patholo gist Method Time Signature [...] M.D. LAB BLOOD ADD-ON Performing Organization Address City/[facility] Code Phon e Number [facility] - [address] [place], [place] [address] [facility] [place] [address] Laboratories-[facility] 200 [facility] hCG (Human Chorionic Gonadotropin), Quantitative, (12/20/2021 3:36 [...] Organization Address City/State/ZIP Code Phon e Number [facility] - [address] [place], [place] [address] [facility] [place] [address] Laboratories-[facility] [address] (ABNORMAL) Basic Metabolic Panel [...] CDT eGFR-Black/Afri 81 >=60 12/20/2021 [facility] can [place] mL/min/BSA 4:08 AM CDT Comment: ----ADDITIONAL INFORMATION---- [...] Organization Address City/State/ZIP Code Phon e Number [facility] - 200 [place], [place] [address] [facility] [place] [address] Laboratories-[facility] [address] [facility] (ABNORMAL) CBC with Differential, Blood (12/20/2021 3:36 AM CDT) [facility] Method Time Signature Hemoglobin 8.0 (L) [...] Organization Address City/State/ZIP Code Phon e Number [facility] - [address] [place], [place] [address] [place] [address] Laboratories-[facility] [address] documented in this encounter Visit Diagnoses Diagnosis Cirrhosis Alcoholic (HCC) Hypertension Portal (HCC) Pain Back - Primary Cirrhosis Alcoholic (HCC) Hypertension Portal [...] 12/20/2021 cyclobenzaprine tablet 10 mg (FLEXERIL) (COMPLETED) 002 (Given - Provider: Benja Rosado R.N.) 10 [...] documented as of this encounter Care Teams Inspection Manager Relationship Specialty Start Date End Date Ana Red P.A.-C. PCP - General Internal Medicine 12/01/[address] [place] [phone] [facility] [place] lab 08/25/21 Ervin Schroeder MD Referring Provider Family Medicine 03/24/[address] [place] [address] [phone] documented as of this encounter
--- OUTSIDE RECORDS SUMMARY | 2022-01-31 04:24 | XMS_ITS | Encounter Summary ---
:1990 Author Organization [facility] Address [address] [place] [address] Care Team Providers Name Role Phone Ana Red P.A.-C. Primary Care Provider [phone] Reason for Visit Reason Comments Back Pain Encounter Details Date Type Department Care Team Description 12/19/2021 Nurse Triage Department of [facility] Ben Sun , Back Pain Internal Medicine in [place], [place] [address] [facility] [address] [place], [place] [phone] Social History Tobacco Use Types Packs/Day Years [...] do you attend quaker or Never 2021 lutheran services? 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 Call your doctor (or CANOE INSPECTOR/PA) now or as soon as the office [...] need to be seen. Your doctor (or CANOE INSPECTOR/PA) will want to talk with you to [...] acetaminophen, ibuprofen, or naproxen. * They are lkhv-hjj-qadwprz (OTC) pain drugs. You can buy them [...] Care Team Description Office Visit [facility] Internal [facility], 2 Medicine Vernell Perez [address] [place] [phone] Appointment Radiology Matthew Jerome 2 Tyrell Rodriguez M.D. [address] [place] [phone] Hospital Gastroenterology and Matthew Jerome 2 Encounter Hepatology Tyrell Rodriguez M.D. [address] [place] [phone] Surgery Gastroenterology and Matthew Jerome ESOPHAG OGASTRODUODENOSCOPY 2 Hepatology Tyrell Rodriguez M.D. [address] [place] [address] [phone] Telemedicine Transplant 2 Lab Laboratory Medicine Olinda Frazier M.D., Ph.D. [address] [place] [phone] Lab Laboratory Medicine Olinda Frazier M.D., Ph.D. [address] [place] [phone] Office Visit Transplant Olinda Frazier M.D., Ph.D. [address] [place] [phone] Appointment Radiology Matthew Jerome 2 YJoshuaBSumaB.SSuma, Lilian [address] [place] [phone] Appointment Gastroenterology and Adrianne, 2 Hepatology Yue Bucriaga M.D. [address] [place] [phone] Office Visit Gastroenterology and Matthew Jerome 2 Hepatology Joshua RodriguezBSumaB.SLilian Moise [address] [place] [phone] Appointment Radiology Matthew Jerome 2, M.BSumaB.SLilian Moise [address] [place] [phone] Scheduled Procedures Name Priority Associated Diagnoses Date/Time ESOPHAGOGASTRODUODENOSCOPY Cirrhosis Alc oholic (HCC) 02/10/2022 8:45 AM CDT Hypertension Portal (HCC) documented as of this encounter Visit Diagnoses Not on filedocumented in this encounter Additional Health Concerns Assessment Noted Time PHQ-9 Depression Total Score: 10 10/06/2021 5:00 PM CD T documented as of this encounter Care Teams Clin Asst Relationship Specialty Start Date End Date Ana Red P.A.-C. PCP - General Internal Medicine 12/01/[address] [place], [place] [address] [phone] [facility]- [place] lab 08/25/21 Ervin Schroeder MD Referring Provider Family Medicine 03/24/[address] [place], [place] [address]th [facility] [place] [address] documented as of this encounter
--- OUTSIDE RECORDS SUMMARY | 2022-01-31 04:24 | XMS_ITS | Encounter Summary ---
:1990 Author Organization [facility] Address [address] [place] [address] Care Team Providers Name Role Phone Ana Red P.A.-C. Primary Care Provider [phone] Reason for Referral Outpatient (Routine) - Authorized Specialty Diagnoses / Procedures Referred By Contact Refer red To Contact Diagnoses Ascites Chronic Matthew Jerome M.B.B.S., [facility] Procedures US Paracentesis with Imaging Guidance Lilian [address] [place] [phone] Referral ID Status Reason Start Date Expiration Date Visits V isits Requested Authorized [id number] Authorized 11/19/2021 11/19/2022 1 1 Outpatient (Routine) - Pending Review Specialty Diagnoses / Procedures Referred By Contact Refer red To Contact Diagnoses Ascites Chronic Matthew Jerome M.B.BSumaSSuma, [facility] Procedures US Paracentesis with Imaging Guidance Lilian [address] [place] [phone] Referral ID Status Reason Start Date Expiration Date Visits V isits Requested Authorized [id number] Pending 01/06/2022 01/06/2023 1 1 Review Outpatient (Routine) - Authorized Specialty Diagnoses / Procedures Referred By Contact Refer red To Contact Diagnoses Ascites Chronic Matthew Jerome M.B.B.S., [facility] Procedures US Paracentesis with Imaging Guidance M.DSuma [address] [place] [phone] Referral ID Status Reason Start Date Expiration Date Visits V isits Requested Authorized [id number] Authorized 11/19/2021 11/19/2022 1 1 Outpatient (Routine) - Authorized Specialty Diagnoses / Procedures Referred By Contact Refer red To Contact Diagnoses Ascites Chronic Matthew Jerome M.B.B.S., [facility] Procedures US Paracentesis with Imaging Guidance M.DSuma [address] [place] [phone] Referral ID Status Reason Start Date Expiration Date Visits V isits Requested Authorized [id number] Authorized 11/19/2021 11/19/2022 1 1 Encounter Details Date Type Department Care Team Description 01/06/2022 Clinical Communication Department of Felicita Spicer G[place]ology [place] [phone] [place] [phone] Social History Tobacco Use Types Packs/Day Years Used Date Smoking Tobacco: Former Cigarettes 0.3 11 10/ 06/2011 - 10/20/2021 Passive Smoke Exposure: Never Smokeless [...] do you attend presybeterian or Never 2021 lutheran services? 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 - 01/07/2022 7:48 AM CDT Patient notified via the portal that new orders for paracentesis in [place] have now been signed and sheis able to call and schedule paracentesis appointments in [place]. Telephone Encounter - Felicita Spicer L.P.N. - 01/06/2022 8:36 AM CDT Per portal message dated 01/05/22 patient requested standing orders for paracentesis in [place] only. Paracentesis orders x 4 have been pended, please review prior to signing. Thank you! documented in this encounter Plan of Treatment Upcoming Encounters Date Type Specialty Care Team Description Office Visit [facility], 2 Medicine Vernell Perez [address] [place] [address] [phone] Appointment Radiology [facility], Matthew 2 Y M.B.B.S., MJules [address] [place] [phone] [facility] Gastroenterology and Mousa, Matthew 2 Encounter Hepatology Elizabeth Rodriguez.B.B.SSuma, MJules [address] [place] [phone] Surgery Gastroenterology and [place], Matthew ESOPHAG OGASTRODUODENOSCOPY 2 Hepatology Y M.B.B.S., MJules [address] [place] [phone] Telemedicine Transplant 2 Lab Laboratory Medicine Karin, 2 Adeline Gannon M.D., Ph.D. [address] [place] [phone] Lab Laboratory Medicine Charlesalexa, Olinda Adeline Gannon M.D., Ph.D. [address] [place] [phone] Office Visit Transplant Charlesalexa, Olinda Adeline Gannon M.D., Ph.D. [address] [place] [phone] Appointment Radiology Matthew Jerome 2 YJoshuaB.B.SSuma, Lilian [address] [place] [phone] Appointment Gastroenterology and Adrianne 2 Hepatology Yue Burciaga M.D. [address] [place] [phone] Office Visit Gastroenterology and Matthew Jerome 2 Hepatology Jennifer M.B.B.SSuma, Lilian [address] [place] [phone] Appointment Radiology Matthew Jerome 2 Y M.B.B.SSuma, Lliian [address] [place] [phone] Scheduled Orders Name Type Priority Associated Order Schedule Diagnoses US Paracentesis with Imaging RAD - Routine (most Ascites Chron ic Expected: Imaging Guidance inpatients and all 01/06 outpatients) (Approximate), Expires: 04/07/2023 US Paracentesis with Imaging RAD - Routine (most Ascites Chron ic Expected: Imaging Guidance inpatients and all 01/20, outpatients) Expires: 04/07/2023 US Paracentesis with Imaging RAD - Routine (most Ascites Chron ic Expected: Imaging Guidance inpatients and all 02/03, outpatients) Expires: 04/07/2023 US Paracentesis with Imaging RAD - Routine (most Ascites Chron ic Expected: Imaging Guidance inpatients and all 02/17, outpatients) Expires: 04/07/2023 Scheduled Procedures Name Priority Associated Diagnoses Date/Time [...] documented as of this encounter Care Teams Insert Molding Operator Relationship Specialty Start Date End Date Ana Red P.A.-C. PCP - General Internal Medicine 12/01/[address] [place] [phone] [facility]- [place] lab 08/25/21 Ervin Schroeder MD Referring Provider Family Medicine 03/24/[address] [place] [address] documented as of this encounter
--- OUTSIDE RECORDS SUMMARY | 2022-01-31 04:24 | XMS_ITS | Encounter Summary ---
:1990 Author Organization [facility] Address [address] [place] [address] Care Team Providers Name Role Phone Ana Red P.A.-C. Primary Care Provider [phone] Encounter Details Date Type Department Care Team Description 12/27/2021 Patient Self-Triage CONNECTED CARE Symptom Clinical Social Work Therapist, Provider Social History Tobacco Use Types Packs/Day [...] do you attend pentecostal or Never 2021 mosque services? 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 Plan of Treatment Upcoming Encounters Date Type Specialty Care Team Description [facility], 2 Medicine Vernell Perez [address] [place] [address] Appointment Radiology Matthew Jerome 2 Tyrell Rodriguez, Lilian [address] [place] [phone] Hospital Gastroenterology and Matthew Jerome 2 Encounter Hepatology Tyrell Rodriguez, Lilian [address] [place] [phone] Surgery Gastroenterology and Matthew Jerome ESOPHAG OGASTRODUODENOSCOPY 2 Hepatology Joshua RodriguezB.B.SLilian Moise [address] [place] [phone] Telemedicine Transplant 2 Lab Laboratory Medicine Karin, 2 Adeline Gannon M.D., Ph.D. [address] [place] [phone] Lab Laboratory Medicine Karin, 2 Adeline Gannon M.D., Ph.D. [address] [place] [address] [phone] Office Visit Transplant Karin, Olinda Gannon M.D., Ph.D. [address] [place] [address] [phone] Appointment Radiology Matthew Jerome 2 YElizabeth.B.B.SSuma, Lilian [address] [place] [phone] Appointment Gastroenterology demian Silver 2 Hepatology Yue Burciaga M.D. [address] [place] [phone] Office Visit Gastroenterology and Matthew Jerome 2 Hepatology Joshua RodriguezB.B.SLilian Moise [address] [place] [phone] Appointment Radiology Matthew Jerome 2 Y M.B.B.SLilian Moise [address] [place] [phone] Scheduled Procedures Name Priority Associated Diagnoses Date/Time ESOPHAGOGASTRODUODENOSCOPY Cirrhosis Alc oholic (HCC) 02/10/2022 8:45 AM CDT Hypertension Portal (HCC) documented as of this encounter Visit Diagnoses Not on filedocumented in this encounter Additional Health Concerns Assessment Noted Time PHQ-9 Depression Total Score: 10/06/2021 5:00 PM CD T documented as of this encounter Care Teams Bell Person Relationship Specialty Start Date End Date Ana Red P.A.-C. PCP - General Internal Medicine 12/01/[address] [place] [phone] [facility]- [place] lab 08/25/21 Ervin Schroeder MD Referring Provider Family Medicine 03/24/[address] [place] [address] documented as of this encounter
--- OUTSIDE RECORDS SUMMARY | 2022-01-31 04:24 | XMS_ITS | Encounter Summary ---
:1990 Author Organization [facility] Address [address] [place] [address] Care Team Providers Name Role Phone Ana Red P.A.-C. Primary Care Provider [phone] Encounter Details Date Type Department Care Team Description 12/25/2021 Clinical Communication Department of [facility] Farida Perez Medicine in [address] [phone] [facility] [phone] (Work) [phone] Social History Tobacco Use Types Packs/Day Years [...] do you attend restoration or Never 2021 confucianist services? Do you belong to any clubs or No 07/17/2021 organizations such as restoration groups, unions, fraAmeristream or athletic groups, or school groups? 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 - 12/29/2021 8:07 AM CDT Detailed message left for patient stating that disability parking paperwork can not be filled out until she sees Ana and that she has an appointment on 01/07/2022 that we will fill that out with her. Telephone Encounter - Yadi Mas - 12/26/2021 [...] scheduling pool. Telephone Encounter - Christina Mccall LSumaP.NSuma - 12/25/2021 2:13 PM CDT Left message [...] Community Internal Olinda Red Medicine Vernell Perez [address] [place] [address] [place] [phone] Appointment Radiology Matthew Jerome 2 Y, M.B.BSumaSSuma, MJules [address] [place] [phone] Hospital Gastroenterology and [facility] 2 Encounter Hepatology Y M.B.B.SSuma, Lilian [address] [place] [phone] Surgery Gastroenterology and [facility] ESOPHAG OGASTRODUODENOSCOPY 2 Hepatology Y, M.B.B.SSuma, Lilian [address] [place] [phone] Telemedicine Transplant 2 Lab Laboratory Medicine Karin, 2 Adeline Gannon M.D., Ph.D. [address] [place] [phone] Lab Laboratory Medicine Karin, 2 Adeline Gannon M.D., Ph.D. [address] [place] [phone] Office Visit Transplant Karin, 2 Adeline Gannon M.D., Ph.D. [address] [place] [phone] Appointment Radiology Matthew Jerome 2 Y, M.B.B.SSuma, Lilian [address] [place] [phone] Appointment Gastroenterology and [place], 2 Hepatology Yue Burciaga M.D. [address] [place] [address] Office Visit Gastroenterology and Matthew Jerome 2 Hepatology Tyrell Rodriguez, Lilian [address] [place] [phone] Appointment Radiology MoMatthew abdul 2 YTyrell, Lilian [address] [place] [phone] Scheduled Procedures Name Priority Associated Diagnoses Date/Time ESOPHAGOGASTRODUODENOSCOPY Cirrhosis Alc oholic (HCC) 02/10/2022 8:45 AM CDT Hypertension Portal (HCC) documented as of this encounter Visit Diagnoses Not on filedocumented in this encounter Additional Health Concerns Assessment Noted Time PHQ-9 Depression Total Score: 10 10/06/2021 5:00 PM CD T documented as of this encounter Care Teams Degreasing Wheel Operator Relationship Specialty Start Date End Date Ana Red P.A.-C. PCP - General Internal Medicine 12/01/[address] [place] [phone] [facility]- [place] lab 08/25/21 Ervin Schroeder MD Referring Provider Family Medicine 03/24/[address] [place] [address] documented as of this encounter
--- OUTSIDE RECORDS SUMMARY | 2022-01-31 04:24 | XMS_ITS | Encounter Summary ---
:1990 Author Organization [facility] Address [address] [place] [address] Care Team Providers Name Role Phone Ana Red P.A.-C. Primary Care Provider [phone] Encounter Details Date Type Department Care Team Description 12/15/2021 Lab Department of Adeline Frazier Moderate Or Severe Use Disorder (Dependence) Uncomplicated (HCC); Laboratory Medicine and Lilian Gannon, Ph.D. Cannabis Use Unspecified Uncomplicated Pathology, [place] [address] [place] [address], in [facility] [phone] [place] [address] [place] [phone] Social History Tobacco Use Types [...] do you attend hinduism or Never 2021 mormonism services? 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 [place] [phone] Appointment Radiology Matthew Jerome 2 Y, Tyrell, MJules [address] [place] [phone] [facility] 2 Encounter Hepatology Tyrell Rodriguez M.D. [address] [place] [phone] Surgery Gastroenterology and [facility], Matthew ESOPHAG OGASTRODUODENOSCOPY 2 Hepatology Tyrell Rodriguez M.D. [address] [place] [phone] Telemedicine Transplant 2 Lab Laboratory Medicine Karin, 2 Adeline Gannon M.D., Ph.D. [address] [place] [phone] Lab Laboratory Medicine Karin, 2 Adeline Gannon M.D., Ph.D. [address] [place] [phone] Office Visit Transplant Karin, 2 Adeline Gannon M.D., Ph.D. [address] [place] [phone] Appointment Radiology Queenie Matthew 2 Vik RodriguezBLilian Bedolla [address] [place] [phone] Appointment Gastroenterology and Adrianne, 2 Hepatology Yue Burciaga M.D. [address] [place] [phone] Office Visit Gastroenterology and [facility], Matthew 2 Hepatology Vik RodriguezBLilian Bedolla [address] [place] [phone] Appointment Radiology Queenie Matthew 2 YTyrell M.D. [address] [place] [phone] Scheduled Procedures Name Priority Associated Diagnoses Date/Time [...] (THC) Confirmation, Urine (12/15/2021 5:58 PM CDT) [facility] Method Time Signature Carboxy-THC- by 19 Cutoff: 12/18/2021 [facility] GC/MS 3.0 ng/mL 6:38 AM CDT Carboxy-THC Positive. 12/18/2021 [facility] Interpretation 6:38 AM CDT Comment: ----ADDITIONAL INFORMATION---- This report is intended for use in clini ada monitoring and management of patients. ??It is not intended for use i n employment-related testing. This test was developed and its performa nce characteristics determined by [facility] in a manner consistent with CLIA requirements. This test has not been cleared or approved by the U.[place]. Meg[place] d and Drug Administration. Specimen Anatomical Collection Method Collection Time Receive d Time (Source) Location / / Volume Laterality Urine 12/15/2021 5:58 PM 7:09 CDT AM CDT Adeline L Loukianova M.D., Ph.D. LAB URINE ORDERABLES Performing Organization Address [facility] Phon e Number [facility] [address] [place], [place] [address] [place], [place] [address]t. [place] [address] Laboratory Medicine and Pathology [address] [place] (ABNORMAL) Drug Abuse Survey with Confirmation, Urine (12/15/2021 5:58 PM CDT) [facility] Method Time Signature Alcohol Negative Cutoff: [...] Ph.D. LAB URINE ORDERABLES Performing Organization Address City/[facility] Phon e Number [facility] [address] [place], [place] [address] [facility] [place] [address] Laboratory Medicine and Pathology [address] [place] [address] Dr. [place] Ethyl Glucuronide Confirmation, Random, Urine (12/15/2021 5:51 PM CDT) [facility] Method Time Signature Ethyl Glucuronide Negative Cutoff: 12/17/2021 [facility] Confirmation, U 250 ng/mL 10:34 AM CDT Ethyl Sulfate Negative Cutoff: 12/17/2021 [facility] 100 ng/mL 10:34 AM CDT Ethyl Gluc/Sulfate Negative. 12/17/2021 [facility] Interpretation 10:34 AM CDT Comment: ----ADDITIONAL INFORMATION---- This report is intended for use in clini ada monitoring and management of patients. ??It is not intended for use i n employment-related testing. This test was developed and its performa nce characteristics determined by [facility] in a manner consistent with CLIA requirements. This test has not been cleared or approved by the U.S. Meggan d and Drug Administration. Specimen Anatomical Collection Method Collection Time Receive d Time (Source) Location / / Volume Laterality Urine (Urine, 12/15/2021 5:51 PM 12/16/19 9:55 Midstream) CDT PM CDT Adeline Frazier M.D., Ph.D. LAB URINE ORDERABLES Performing Organization Address City/[facility] Phon e Number [facility] [address] [place] [address] [facility] [place] [address] Laboratory Medicine and Pathology [address] [place] [address] Dr. CHAPPELL documented in this encounter Visit Diagnoses Diagnosis Cirrhosis Alcoholic (HCC) Hypertension Portal (HCC) Alcohol Moderate Or Severe Use Disorder (Dependence) Uncomplicated (HCC) Cannabis Use Unspecified Uncomplicated Cirrhosis Alcoholic (HCC) Hypertension Portal (HCC) documented in this encounter Additional Health Concerns Assessment Noted Time PHQ-9 Depression Total Score: 10 10/06/2021 5:00 PM CD T documented as of this encounter Care Teams Supervisor Car Installations Relationship Specialty Start Date End Date Ana Red P.A.-C. PCP - General Internal Medicine 12/01/[address] [place] [address] Santi ADI PANIAGUA [phone] [facility]- [place] lab 08/25/21 Ervin Schroeder MD Referring Provider Family Medicine 03/24/[address] [place] [address] documented as of this encounter
--- OUTSIDE RECORDS SUMMARY | 2022-01-31 04:24 | XMS_ITS | Encounter Summary ---
:1990 Author Organization [facility] Address [address] [place] [address] Care Team Providers Name Role Phone Ana Red P.A.-C. Primary Care Provider [phone] Encounter Details Date Type Department Care Team Description 12/18/2021 Orders Only Department of Mousa, Matthew Y, Mood Disorde r (HCC) (Primary Dx); Gastroenterology in [place].Joshua Hudson. Anxiety Disorder Unspecified [address] [phone] Social History Tobacco Use Types Packs/Day Years [...] do you attend methodist or Never 2021 evangelical services? Do you [...] or the highest technical, or vocational p [facility] degree you have received? 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 [address] [place] [phone] [facility] Gastroenterology and Mousa, Matthew 2 Encounter Hepatology Vik RodriguezBLilian Bedolla [address] [place] [phone] Surgery Gastroenterology and Mousa, Matthew ESOPHAG OGASTRODUODENOSCOPY 2 Hepatology Tyrell Rodriguez M.D. [address] [place] [phone] Telemedicine Transplant 2 Lab Laboratory Medicine Karin, 2 Adeline Gannon M.D., Ph.D. [address] [place] [phone] Lab Laboratory Medicine Karin, 2 Adeline Gannon M.D., Ph.D. [address] [place] [phone] Office Visit Transplant Karin, 2 Adeline Gannon M.D., Ph.D. [address] [place] [phone] Appointment Radiology Mochantell Matthew 2 Vik RodriguezBLilian Bedolla [address] [place] [phone] Appointment Gastroenterology and Adrianne, 2 Hepatology Yue Burciaga M.D. [address] [place] [phone] Office Visit Gastroenterology and [facility], Matthew 2 Hepatology Joshua RodriguezBSumaBLilian Bedolla [address] [place] [phone] Appointment Radiology Matthew Jerome 2 YTyrell M.D. [facility]5 [place] [phone] Scheduled Procedures Name Priority Associated Diagnoses Date/Time ESOPHAGOGASTRODUODENOSCOPY Cirrhosis Alc oholic (HCC) 02/10/2022 8:45 AM CDT Hypertension Portal (HCC) documented as of this encounter Visit Diagnoses Diagnosis Cirrhosis Alcoholic (HCC) Hypertension Portal (HCC) Mood Disorder (HCC) - Primary Anxiety Disorder Unspecified Cirrhosis Alcoholic (HCC) Hypertension Portal (HCC) documented in this encounter Additional Health Concerns Assessment Noted Time PHQ-9 Depression Total Score: 10/06/2021 5:00 PM CD T documented as of this encounter Care Teams Government Contracts Manager Relationship Specialty Start Date End Date Ana Red P.A.-C. PCP - General Internal Medicine 12/01/[address] [place] [phone] [facility] [place] lab 08/25/21 Ervin Schroeder MD Referring Provider Family Medicine 03/24/[address] [place] [phone] documented as of this encounter
--- OUTSIDE RECORDS SUMMARY | 2022-01-31 04:24 | XMS_ITS | Encounter Summary ---
:1990 Author Organization [facility] Address [address] [place] [address] Care Team Providers Name Role Phone Ana Red P.A.-C. Primary Care Provider [phone] Reason for Visit Reason Comments Follow-up Transplant evaluation Outpatient (Routine) - Closed Specialty Diagnoses / Referred By Contact Referred To Procedures Contact Gastroenterology and Diagnoses Cirrhosis Alcoholic (HCC) Hypertension Portal (HCC) Thrombocytopenia (HCC) Abnormal Liver Function Test Deficiency Vitamin A Matthew Jerome, [facility] Hepatology M.B.B.S., MJules [address] [place] [address] Referral ID Status Reason Start Date Expiration Date Visits Requ ested Visits Authorized [id number] Closed 10/08/2021 10/08/2022 1 1 Encounter Details Date Type Department Care Team Description 12/10/2021 Office Visit Department of Matthew Jerome Cirrhosis Alco holic (HCC) (Primary Dx); Gastroenterology in Y, M.B.B.S., Hyperten neptali Portal (HCC); [place], [place] Lilian Thrombocytopenia (HCC); [address] [facility] [address] 1025 [facility] Abnormal Liver Function Test; [place] [phone] [place], [place] Deficiency Vitamin A; [phone] Ascites Chronic; [phone] Hepatic Encepha lopathy Without Coma (HCC) (Work) [...] do you attend faith or Never 2021 judaism services? Do you [...] or the highest technical, or vocational p [facility] degree you have received? 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 Please call Parris Tan in [place]. Please follow with the psych counselor at [...] 31 y.o. female who presents for a [facility] this follow-up for hepatic encephalopathy. 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 She was admitted in [place] during the month of October for about [...] she missed the voice messages from the rn social services Parris Tan, and agreed to call her [...] out to the transplant psych team in [place] and Zenobia Hollingsworth sent the information and [...] for missing the voice messages from the rn social services Parris Tan and promised me that she [...] October 2021 #15 Newly diagnosed PFO with [id number] atrial shunt: Echo done March 2020 # [...] OLAYINKA Trotter Gastroenterology, Hepatology and Transplant hepatology [facility] documented in this encounter Plan of Treatment Upcoming Encounters Date Type Specialty Care Team Description Office Visit Community Internal Neda, 2 Medicine Vernell Perez 300 [place] [address] Appointment Radiology Matthew Jerome 2, M.B.B.S., M.D. [address] [place] [phone] [facility] Gastroenterology and Mousa, Matthew 2 Encounter Hepatology Tyrell Rodriguez M.D. [address] [place] [phone] Surgery Gastroenterology and Mousa, Matthew ESOPHAG OGASTRODUODENOSCOPY 2 Hepatology Tyrell Rodriguez M.D. [address] [place] [phone] Telemedicine Transplant 2 Lab Laboratory Medicine Karin, 2 Adeline Gannon M.D., Ph.D. [address] [place] [phone] Lab Laboratory Medicine Karin, 2 Adeline Gannon M.D., Ph.D. [address] [place] [phone] Office Visit Transplant Karin, 2 Adeline Gannon M.D., Ph.D. [address] [place] [phone]ment [address] [facility] Matthew 2 Tyrell Rodriguez M.D. [address] [place] [phone] Appointment Gastroenterology and Adrianne, 2 Hepatology Yue Burciaga M.D. [address] [place] [phone] Office Visit Gastroenterology and [facility], Matthew 2 Hepatology Tyrell Rodriguez M.D. [address] [place] [phone] Appointment Radiology Matthew Jerome 2 YTyrell, Lilian [address] [place] [phone] Scheduled Procedures Name Priority Associated Diagnoses Date/Time ESOPHAGOGASTRODUODENOSCOPY Cirrhosis Alc oholic (HCC) 02/10/2022 8:45 AM CDT Hypertension Portal (HCC) documented as of this encounter Visit Diagnoses Diagnosis Cirrhosis Alcoholic (HCC) - Primary Hypertension Portal (HCC) Thrombocytopenia (HCC) Abnormal Liver Function Test Deficiency Vitamin A Ascites Chronic Hepatic Encephalopathy Without Coma (HCC ) Cirrhosis Alcoholic (HCC) Hypertension Portal (HCC) Cirrhosis Alcoholic (HCC) Hypertension Portal (HCC) documented in this encounter Additional Health Concerns Assessment Noted Time PHQ-9 Depression Total Score: 10 10/06/2021 5:00 PM CD T documented as of this encounter Care Teams Machine Operations Supervisor Relationship Specialty Start Date End Date Ana Red P.A.-C. PCP - General Internal Medicine 12/01/[address] [place] [phone] [facility]- [place] lab 08/25/21 Ervin Schroeder MD Referring Provider Family Medicine 03/24/[address] [place] [address] documented as of this encounter
[2022-01-31 04:25] LABS: Basophils Percent Auto 0.2 % (0.0-3.0); Eosinophils Percent Auto 1.8 % (0.0-7.0); Hematocrit 21.6 % (33.0-51.0); Lymphocytes Percent Auto 19.5 % (20-44); Mean Corpuscular HGB Conc 34 gm/dL (32-36); Mean Corpuscular Hemoglobin 34 pg (26-34); Mean Corpuscular Volume 101 fL (80-100); Monocytes Percent Auto 12.2 % (0.0-11.0); Neutrophils Percent Auto 66.3 % (42.0-72.0); Platelet Count* 51 K/uL (140-440); Red Blood Count 2.15 m/uL (4.00-5.20); White Blood Count* 4.36 K/uL (4.50-11.00)
--- OUTSIDE RECORDS SUMMARY | 2022-01-31 04:25 | XMS_ITS | Encounter Summary ---
:1990 Author Organization [facility] Address [address] [place] [address] Care Team Providers Name Role Phone Ana Red P.A.-C. Primary Care Provider [phone] Encounter Details Date Type Department Care Team Description 12/02/2021 Hospital Encounter Department of [facility] Cirrhosi s Alcoholic (HCC); Laboratory Medicine Y, Elizabeth.B.B.S., Hyperten neptali Portal (HCC); in Lilian [place] Thrombocytopenia (HCC); [address] Abnormal Liver Function Test; [address] [place], [place] Change Mental Status ADI PANIAGUA [phone] Social History Tobacco Use Types Packs/Day [...] do you attend denominational or Never 2021 evangelical services? 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 Placed in 2014 magnesium oxide Take 1 tablet (400 mg [...] by mouth 0 100 mg tablet daily. lidocaine (LIDODERM) 5 Place 1 patch on the 14 patch 0 12/10/2021 % skin at bedtime for 14 days. Apply to leg. zinc sulfate (ZINCATE) Take 1 capsule (220 28 capsule 0 08/06/202112/30/2021 220 (50 mg zinc) mg total) by mouth capsule daily with breakfast for 28 days. ergocalciferol Take 50,000 Units by 0 04/01/2021 01/14/2022 (DRISDOL) 50,000 Unit mouth once a week. capsule Mondays folic acid 1 mg tablet Take 1 mg by mouth 0 01/30/2022 daily. furosemide (LASIX) 20 Take 2 tablets (40 mg 30 tablet 1 07/202112/10/2021 mg tablet total) by mouth daily. lactulose (CHRONULAC) Take 15 mL (10 g 0 11/12/19 22 12/10/2021 10 gram/15 mL solution total) by mouth 3 (three) times a day. Titrate to 3 soft bowel movements daily ondansetron ODT Dissolve 1 tablet in 0 04/23/2021 01/14/2022 (ZOFRAN-ODT) 8 mg the mouth 3 (three) disintegrating tablet times a day as needed for nausea or vomiting. rifAXIMin (XIFAXAN) 550 Take 550 mg by mouth 0 12/10/2021 mg tablet 2 (two) times a day. spironolactone Take 2 tablets (100 30 tablet 1 08/03/2021 0 12/10/2021 (ALDACTONE) 50 mg mg total) by mouth tablet daily. sulfamethoxazole-trimet Take 1 tablet by 30 tablet 0 202112/10/2021 hoprim (BACTRIM DS) mouth daily. Take 1 800-160 mg per tablet tablet daily for vitamin A 3,000 mcg Take 1 capsule (3,000 50 capsule 0 10/0801/14/2022 (10,000 Unit) mcg total) by mouth 3 capsuleIndications: (three) times a week Cirrhosis Alcoholic for 50 doses. (HCC), Deficiency Vitamin A documented as of this encounter Plan of Treatment Upcoming Encounters Date Type Specialty Care Team Description Office Visit Community Internal Neda, Olinda Medicine Vernell Perez 300 [place] [address] Appointment Radiology [facility] 2 Y M.B.B.SSuma, MJules [address] [place] [phone] Hospital Gastroenterology and [facility] 2 Encounter Hepatology Elizabeth Rodriguez.B.B.SSuma, Lilian [address] [place] [phone] Surgery Gastroenterology and [facility] ESOPHAG OGASTRODUODENOSCOPY 2 Hepatology Y M.B.B.SSuma, MJules [address] [place] [phone] Telemedicine Transplant 2 Lab Laboratory Medicine Karin, 2 Adeline Gannon M.D., Ph.D. [address] [place] [phone] Lab Laboratory Medicine Karin, 2 Adeline Gannon M.D., Ph.D. [address] [place] [phone] Office Visit Transplant Olinda Frazier M.D., Ph.D. [address] [place] [phone] Appointment Radiology LuisNew abdular 2 YTyrell M.D. [address] [place] [phone] Appointment Gastroenterology and Adrianne, 2 Hepatology Yue Burciaga M.D. [address] [place] [address] Office Visit Gastroenterology and [place] 2 Hepatology Tyrell Rodriguez M.D. [address] [place] [phone] Appointment Radiology Queenie Matthew 2 YTyrell M.D. [address] [place] [phone] Scheduled Procedures Name Priority Associated Diagnoses [...] Basic Metabolic Panel (12/02/2021 4:14 PM CDT) athologist Signature Potassium, P 5.0 3.6 - [...] CDT eGFR-Black/Afri >90 >=60 12/02/2021 [place] can Panamanian mL/min/BSA 6:46 PM CDT Comment: ----ADDITIONAL INFORMATION---- [...] Organization Address City/State/ZIP Code Phon e Number [facility]- [address] [place] [address] [facility] [address] System in [place] [address] (ABNORMAL) Bilirubin, Total (12/02/2021 4:14 PM CDT) P athologist Signature Bilirubin, 11.8 (H) <=1.2 12/02/2021 [place] Total, P mg/dL 6:46 PM CDT Specimen Anatomical Collection Method Collection Time Receive d Time (Source) Location / / Volume Laterality Blood (Blood, 12/02/2021 4:14 PM 12/03/19 22 6:28 Venous) CDT PM CDT Matthew Santillan M.D. LAB BLOOD ADD-ON Performing Organization Address City/State/ZIP Code Phon e Number [facility]- [address] [place] [address] [facility] [place] [address] System in [place] [address] [facility] (ABNORMAL) Prothrombin Time (PT) (12/02/2021 4:14 PM [...] Blood (Blood, 12/02/2021 4:14 PM 12/03/19 22 6:27 Venous) CDT PM CDT Matthew Santillan M.D. LAB BLOOD ADD-ON Performing Organization Address City/State/ZIP Code Phon e Number [facility]- [address] [place] [address] [place] [address] System in [place] [address] [facility] documented in this encounter Visit Diagnoses Diagnosis Cirrhosis Alcoholic (HCC) Hypertension Portal (HCC) Thrombocytopenia (HCC) Abnormal Liver Function Test Change Mental Status Cirrhosis Alcoholic (HCC) Hypertension Portal (HCC) documented in this encounter Additional Health Concerns Assessment Noted Time PHQ-9 Depression Total Score: 10 10/06/2021 5:00 PM CD T documented as of this encounter Care Teams State Farm Agent Team Member Relationship Specialty Start Date End Date Ana Red P.A.-C. PCP - General Internal Medicine 12/01/[address] [place] [phone] [facility]- [facility] 08/25/21 Ervin Schroeder MD Referring Provider Family Medicine 03/24/[address] [place] [address] documented as of this encounter
--- OUTSIDE RECORDS SUMMARY | 2022-01-31 04:25 | XMS_ITS | Encounter Summary ---
:1990 Author Organization [facility] Address [address] [place] [address] Care Team Providers Name Role Phone Ana Red P.A.-C. Primary Care Provider Reason for Referral Specialty Diagnoses / Procedures Referred By Contact Refer red To Contact Ana Red P .A.-C. [facility] Region [address] [place] [phone] Referral ID Status Reason Start Date Expiration Date Visits Requ ested Visits Authorized Encounter Details Date Type Department Care Team Description 12/03/2021 Orders Only [facility] P[facility] Ana Red P.A.-C. 300 [place], [place] [phone] (Wo rk) Social History [...] or relatives? How often do you attend synagogue or Never 2021 christian services? 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 [address] [place] [phone] [facility] G[facility] [place] ESOPHAG OGASTRODUODENOSCOPY 2 Hepatology Vik RodriguezBLilian Bedolla [address] [place] [phone] Telemedicine Transplant 2 Lab Laboratory Medicine Karin, Olinda Gannon M.D., Ph.D. [address] [place] [phone] Lab Laboratory Medicine Karin, Olinda Gannon M.D., Ph.D. [address] [place] [phone] Office Visit Transplant Olinda Frazier M.D., Ph.D. [address] [place] [phone] Appointment Radiology Matthew Jerome 2 YJoshuaBSumaBLilian Bedolla [address] [place] [phone] Appointment Gastroenterology and Adrianne, 2 Hepatology Yue Burciaga M.D. [address] [place] [phone] Office Visit Gastroenterology and Matthew Jerome 2 Hepatology Tyrell Rodriguez M.D. [address] [place] [phone] Appointment Radiology LuisMatthew abdul 2 Tyrell Rodriguez M.D. [address] [place] [phone] Scheduled Procedures Name Priority Associated Diagnoses Date/Time [...] documented as of this encounter Care Teams Forepart Reducer Relationship Specialty Start Date End Date Ana Red P.A.-C. PCP - General Internal Medicine 12/01/[address] [place] [phone] [facility]- [place] lab 08/25/21 Evrin Schroeder MD Referring Provider Family Medicine 03/24/[address] [place] [phone] documented as of this encounter
--- OUTSIDE RECORDS SUMMARY | 2022-01-31 04:25 | XMS_ITS | Encounter Summary ---
:1990 Author Organization [facility] Address [address] [place] [address] Care Team Providers Name Role Phone Ana Red P.A.-C. Primary Care Provider [phone] Encounter Details Date Type Department Care Team Description 12/04/2021 Documentation Division of Gastroenterology Concepción Morelos, in [facility] pdero Quintana [address] [facility] [address] [place] [phone] [place], [place] [phone] (Wo rk) Social History Tobacco Use Types [...] do you attend samaritan or Never 2021 jew services? 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 - 12/04/2021 12:44 AM CDT GI fellow energy conservation technician Ctaia Carias is a 31 y.o. female with [...] is most comfortable having this done at [place]. She denies n/v, confusion, melena, hematochezia, or [...] would like to receive her care at [place]. She is planning to come to the [...] today and willing to come back to [place] (lives about 40 min away). I am working with K[facility] to get her in for an outpatient para and have forwarded my note to Dr. Jerome as well. Nabila Morelos M.D. Gastroenterology Fellow documented in this encounter Plan of Treatment Upcoming Encounters Date Type Specialty Care Team Description Office Visit Community Internal [facility], 2 Medicine Vernell Perez [address] [place] [phone] Appointment Radiology Matthew Jerome 2 Tyrell Rodriguez M.D. [address] [place] [phone] Hospital Gastroenterology and Matthew Jerome 2 Encounter Hepatology Tyrell Rodriguez M.D. [address] [place] [phone] Surgery Gastroenterology and Matthew Jerome ESOPHAG OGASTRODUODENOSCOPY 2 Hepatology Tyrell Rodriguez M.D. [address] [place] [phone] Telemedicine Transplant 2 Lab Laboratory Medicine Karin, Olinda Gannon M.D., Ph.D. [address] [place] [phone] Lab Laboratory Medicine Olinda Frazier M.D., Ph.D. [address] [place] [phone] Office Visit Transplant Olinda Frazier M.D., Ph.D. [address] [place] [phone] Appointment Radiology Matthew Jerome 2 YJoshuaBSumaBLilian Bedolla [address] [place] [phone] Appointment Gastroenterology and Adrianne, 2 Hepatology Yue Burciaga M.D. [address] [place] [phone] Office Visit Gastroenterology and Matthew Jerome 2 Hepatology Joshua RodriguezBSumaBSumaSLilian Moise [address] [place] [phone] Appointment Radiology Matthew Jerome 2 Y M.B.B.SLilian Moise [address] [place] [phone] Scheduled Procedures Name Priority Associated Diagnoses Date/Time ESOPHAGOGASTRODUODENOSCOPY Cirrhosis Alc oholic (HCC) 02/10/2022 8:45 AM CDT Hypertension Portal (HCC) documented as of this encounter Visit Diagnoses Not on filedocumented in this encounter Additional Health Concerns Assessment Noted Time PHQ-9 Depression Total Score: 10/06/2021 5:00 PM CD T documented as of this encounter Care Teams Cheesemaker Helper Relationship Specialty Start Date End Date Ana Red P.A.-C. PCP - General Internal Medicine 12/01/[address] [place] [phone] [facility]- [place] lab 08/25/21 Ervin Schroeder MD Referring Provider Family Medicine 03/24/[address] [place] [phone] documented as of this encounter
--- OUTSIDE RECORDS SUMMARY | 2022-01-31 04:25 | XMS_ITS | Encounter Summary ---
:1990 Author Organization [facility] Address [address] [place] [address] Care Team Providers Name Role Phone Ana Red P.A.-C. Primary Care Provider [phone] Reason for Visit Reason Comments Post Hospital Follow-up Encounter Details Date Type Department Care Team Description 12/02/2021 Clinical Communication Department of [facility] Internal Ciara Johnson, RSumaNSuma Follow-up Medicine in [address] [place] [phone] 300 [facility] [phone] [place], [place] (Work) [phone] Social History Tobacco Use [...] do you attend rastafarian or Never 2021 mormon services? Do you belong to any clubs or No 07/17/2021 organizations such as rastafarian groups, unions, fraPlumTV or athletic groups, or school groups? 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 documented as of this encounter Miscellaneous Notes [...] Care Team Description Office Visit Community Internal [facility], 2 Medicine Vernell Perez [address] [place] [phone] Appointment Radiology [facility] 2 YKishore.B.Kath, Lilian [address] [place] [phone] Hospital Gastroenterology and [facility] 2 Encounter Hepatology Vik RodriguezBLilian Bedolla [address] [place] [phone] Surgery Gastroenterology and [facility] ESOPHAG OGASTRODUODENOSCOPY 2 Hepatology Kishore Rodriguez.B.SSuma, Lilian [address] [place] [phone] Telemedicine Transplant 2 Lab Laboratory Medicine Olinda Frazier M.D., Ph.D. [address] [place] [phone] Lab Laboratory Medicine Olinda Frazier M.D., Ph.D. [address] [place] [phone] Office Visit Transplant Olinda Frazier M.D., Ph.D. [address] [place] [phone] Appointment Radiology Matthew Jerome 2 YJoshuaBSumaBLilian Bedolla [address] [place] [phone] Appointment Gastroenterology and [place], 2 Hepatology Yue Burciaga M.D. [address] [place] [address] Office Visit Gastroenterology and Matthew Jerome 2 Hepatology Joshua RodriguezBSumaBLilian Bedolla [address] [place] [phone] Appointment Radiology Matthew Jerome 2 YElizabeth.B.B.Lilian Stockton [address] [place] [phone] Scheduled Procedures Name Priority Associated Diagnoses Date/Time ESOPHAGOGASTRODUODENOSCOPY Cirrhosis Alc oholic (HCC) 02/10/2022 8:45 AM CDT Hypertension Portal (HCC) documented as of this encounter Visit Diagnoses Not on filedocumented in this encounter Additional Health Concerns Assessment Noted Time PHQ-9 Depression Total Score: 10/06/2021 5:00 PM CD T documented as of this encounter Care Teams Office Professional Relationship Specialty Start Date End Date Ana Red P.A.-C. PCP - General Internal Medicine 12/01/[address] [place] [phone] [facility] [place] lab 08/25/21 Ervin Schroeder MD Referring Provider Family Medicine 03/24/[address] [place] [address] documented as of this encounter
--- OUTSIDE RECORDS SUMMARY | 2022-01-31 04:25 | XMS_ITS | Encounter Summary ---
:1990 Author Organization [facility] Address [address] [place] [address] Care Team Providers Name Role Phone Ana Red P.A.-C. Primary Care Provider [phone] Reason for Visit Reason Comments BIANKA / Appeal Letter Encounter Details Date Type Department Care Team Description 12/03/2021 Clinical Communication Department of [facility], BIANKA / Appeal Letter [facility] Internal Lilian Gee, Medicine in [facility], [address] [place] [address] [address] [facility] [address] [phone] [place] [phone] (Work) [phone] Social History Tobacco Use Types Packs/Day Years [...] do you attend sabianism or Never 2021 buddhist services? Do you belong to any clubs or No 07/17/2021 organizations such as sabianism groups, unions, fraTYFFON or athletic groups, or school groups? How [...] or the highest technical, or vocational p [facility] degree you have received? 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 Gerard Andino's 12/03 appeal letter was faxed to [phone], confirmation was received documented in this encounter Plan of Treatment Upcoming Encounters Date Type Specialty Care Team Description Office Visit Community Internal [facility], 2 Medicine Vernell Perez [address] [place], [place] [address], [place] [address] Appointment Radiology Matthew Jerome 2 YJoshuaBSumaBGraeme, Lilian [address] [place] [phone] Hospital Gastroenterology and Queenie Matthew 2 Encounter Hepatology Vik RodriguezBLilian Bedolla [address] [place] [phone] Surgery Gastroenterology and Queenie Matthew ESOPHAG OGASTRODUODENOSCOPY 2 Hepatology Vik RodriguezBGraeme, Lilian [address] [place] [phone] Telemedicine Transplant 2 Lab Laboratory Medicine Karin, Olinda Gannon M.D., Ph.D. [address] [place] [phone] Lab Laboratory Medicine Karin, 2 Adeline Gannon M.D., Ph.D. [address] [place] [phone] Office Visit Transplant Karin, Olinda Gannon M.D., Ph.D. [address] [place] [phone] Appointment Radiology Matthew Jerome 2 YJoshuaBSumaBGraeme, Lilian [address] [place] [phone] Appointment Gastroenterology and [place], 2 Hepatology Yue Burciaga M.D. [address] [place] [address] Office Visit Gastroenterology and Matthew Jerome 2 Hepatology Tyrell Rodriguez M.D. [address] [place] [phone] Appointment Radiology Queenie Matthew 2 Tyrell Rodriguez M.D. [address] [place] [phone] Scheduled Procedures Name Priority Associated Diagnoses Date/Time ESOPHAGOGASTRODUODENOSCOPY Cirrhosis Alc oholic (HCC) 02/10/2022 8:45 AM CDT Hypertension Portal (HCC) documented as of this encounter Visit Diagnoses Not on filedocumented in this encounter Additional Health Concerns Assessment Noted Time PHQ-9 Depression Total Score: 10/06/2021 5:00 PM CD T documented as of this encounter Care Teams Ditching Machine Engineer Relationship Specialty Start Date End Date Ana Red P.A.-C. PCP - General Internal Medicine 12/01/[address] [place] [phone] [facility]- [place] lab 08/25/21 Ervin Schroeder MD Referring Provider Family Medicine 03/24/[address] [place] [phone] documented as of this encounter
--- OUTSIDE RECORDS SUMMARY | 2022-01-31 04:25 | XMS_ITS | Encounter Summary ---
:1990 Author Organization [facility] Address [address] [place] [address] Care Team Providers Name Role Phone Elsewhere, Pcp Primary Care Provider Unavailable Encounter Details Date Type Department Care Team Description 11/27/2021 Orders Only Division Gerard Prince M.D ., Internal Medicine, [facility], in [place], [address] [place] [address] [place] [phone] [place] [phone] [phone] Social History Tobacco Use Types Packs/Day Years [...] do you attend hoahaoism or Never 2021 synagogue services? Do you belong to any clubs or No 07/17/2021 organizations such as hoahaoism groups, unions, fraDragon Innovation or athletic groups, or school groups? 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 documented as of this encounter Plan of Treatment Upcoming Encounters Date Type Specialty Care Team Description Office Visit Community Internal [facility], 2 Medicine Vernell Perez [address] [place] [phone] Appointment Radiology Matthew Jerome 2 Tyrell Rodriguez, MJules [address] [place] [address] Hospital Gastroenterology and Matthew Jerome 2 Encounter Hepatology Tyrell Rodriguez, MJules [address] [place] [phone] Surgery Gastroenterology and Matthew Jerome ESOPHAG OGASTRODUODENOSCOPY 2 Hepatology Vik RodriguezBLilian Bedolla [address] [place] [phone] Telemedicine Transplant 2 Lab Laboratory Medicine Karin, 2 Adeline Gannon M.D., Ph.D. [address] [place] [phone] Lab Laboratory Medicine Karin, 2 Adeline Gannon M.D., Ph.D. [address] [place] [phone] Office Visit Transplant Karin, 2 Adeline Gannon M.D., Ph.D. [address] [place] [phone] Appointment Radiology Matthew Jerome 2 YElizabeth.B.B.SSuma, Lilian [address] [place] [phone] Appointment Gastroenterology and [place], 2 Hepatology Yue Burciaga M.D. [address] [place] [phone] Office Visit Gastroenterology and Matthew Jerome 2 Hepatology Joshua RodriguezB.B.SLilian Moise [address] [place] [phone] Appointment Radiology Matthew Jerome 2 Y M.B.B.SLilian Moise [address] [place] [phone] Scheduled Procedures Name Priority Associated Diagnoses Date/Time ESOPHAGOGASTRODUODENOSCOPY Cirrhosis Alc oholic (HCC) 02/10/2022 8:45 AM CDT Hypertension Portal (HCC) documented as of this encounter Visit Diagnoses Not on filedocumented in this encounter Additional Health Concerns Assessment Noted Time PHQ-9 Depression Total Score: 10 10/06/2021 5:00 PM CD T documented as of this encounter Care Teams Vehicle Body Maker Relationship Specialty Start Date End Date Elsewhere, Pcp PCP - General Family Medicine 03/10/20 11/30/21 [facility] [place] lab 08/25/21 Ervin Schroeder MD Referring Provider Family Medicine 03/24/[address] [place] [address] documented as of this encounter
--- OUTSIDE RECORDS SUMMARY | 2022-01-31 04:25 | XMS_ITS | Encounter Summary ---
:1990 Author Organization [facility] Address [address] [place] [address] Care Team Providers Name Role Phone Ana Red P.A.-C. Primary Care Provider [phone] Encounter Details Date Type Department Care Team Description 12/04/2021 Clinical Communication Division of [facility], Gastroenterology in Elizabeth Echevarria [place], [place] [address] [facility] [address] [place] [phone] Social History Tobacco Use Types Packs/Day Years [...] do you attend mormonism or Never 2021 latter day services? 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 [facility] [place] [address] Telemedicine Transplant 2 Lab Laboratory Medicine Karin, 2 Adeline Gannon M.D., Ph.D. [address] [place] [phone] Lab Laboratory Medicine Karin, 2 Adeline Gannon M.D., Ph.D. [address] [place] [phone] Office Visit Transplant Karin, 2 Adeline Gannon M.D., Ph.D. [address] [place] [phone] Appointment Radiology Matthew Jerome 2, M.BSumaBLilian Bedolla [address] [place] [phone] Appointment Gastroenterology and Adrianne, 2 Hepatology Yue Burciaga M.D. [address] [place] [phone] Office Visit Gastroenterology and Matthew Jerome 2 Hepatology Joshua RodriguezBSumaBLilian Bedolla [address] [place] [address] [phone] Appointment Radiology MoMatthew abdul 2, M.B.B.S., M.D. [facility] [place] [phone] Scheduled Procedures Name Priority Associated Diagnoses Date/Time ESOPHAGOGASTRODUODENOSCOPY Cirrhosis Alc oholic (HCC) 02/10/2022 8:45 AM CDT Hypertension Portal (HCC) documented as of this encounter Visit Diagnoses Diagnosis Ascites - Primary Cirrhosis Alcoholic (HCC) Hypertension Portal (HCC) documented in this encounter Additional Health Concerns Assessment Noted Time PHQ-9 Depression Total Score: 10/06/2021 5:00 PM CD T documented as of this encounter Care Teams Head Of Sales Relationship Specialty Start Date End Date Ana Red P.A.-C. PCP - General Internal Medicine 12/01/[address] [place] [phone] [facility]- [place] lab 08/25/21 Ervin Schroeder MD Referring Provider Family Medicine 03/24/[address] [place] [address] documented as of this encounter
--- OUTSIDE RECORDS SUMMARY | 2022-01-31 04:25 | XMS_ITS | Encounter Summary ---
:1990 Author Organization [facility] Address [address] [place] [address] Care Team Providers Name Role Phone Ana Red P.A.-C. Primary Care Provider [phone] Reason for Referral Outpatient (Routine) - Pending Review Specialty Diagnoses / Procedures Referred By Contact Refer red To Contact Sleep Medicine Diagnoses Insomnia Sunny Arnold Jcarlos Kruger.OSuma [address] [place] [phone] Referral ID Status Reason Start Expiration Visits Visits Date Date Requested Authorized [id number] Pending Specialty 12/02/2021 12/02/2022 1 1 Review Services Required Scheduling Instructions Schedule stat since her study was cancel led twice Outpatient (Routine) - Closed Specialty Diagnoses / Procedures Referred By Contact Refer red To Contact Community Internal JESSE Arnold ADI R egion Medicine Adair Correa [address] [place] [address] Referral ID Status Reason Start Date Expiration Date Visits Requ ested Visits Authorized [id number] Closed 12/02/2021 12/02/2022 1 1 Scheduling Instructions Schedule with ana her PCP . To follo w up on liver cirrhosis , and hepatic encephalopathy Outpatient (Routine) - Authorized Specialty Diagnoses / Procedures Referred By Contact Refer red To Contact Diagnoses Alcoholic Cirrhosis Of Liver Without Ascites (HCC) Ascites Chronic Sunny Arnold [facility] Region Procedures US Abdomen Complete D.O. [address] [place] [phone] Referral ID Status Reason Start Date Expiration Date Visits V isits Requested Authorized [id number] Authorized 12/02/2021 12/02/2022 1 1 Reason for Visit Reason Comments Post Hospital Follow-up TCM post [facility] stay with discharge on 11/26/2021 Appointment Request (Routine) - Closed Specialty Diagnoses / Procedures Referred By Contact Refer red To Contact Community Internal Medicine Referral ID Status Reason Start Date Expiration Date Visits Requ ested Visits Authorized [id number] Closed 12/01/2021 12/01/2022 1 1 Encounter Details Date Type Department Care Team Description 12/02/2021 Office Visit Department of Internal Silvano Arnold cutluzma And Subacute Hepatic Failure Without Coma (HCC) (Primary Dx); Medicine in [place] D.O . Pancreatitis Chronic (HCC); [place] [address]199 Prison Use Of Opiate Analgesic; [address] [place], [place] Alcohol Use Unspecified With Unspecified Alcohol Induced Disorder (HCC); [place] [address] Alcoholic Cirrhosis Of Liver Without Asc ites (HCC); [address] Ascites Chronic; Insomnia; [phone] High Risk Medic ation (Fax) Social History [...] do you attend protestant or Never 2021 restorationism services? 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 On arrival to [facility], she was unable to follow commands. 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 On arrival to [facility], she was unable to follow commands. [...] Office Visit [facility] Internal [facility], 2 Medicine Vernell Perez [address] [place] [address] Appointment Radiology Matthew Jerome 2 Tyrell Rodriguez M.D. [address] [place] [phone] Hospital Gastroenterology and Matthew Jerome 2 Encounter Hepatology Tyrell Rodriguez M.D. [address] [place] [phone] Surgery Gastroenterology and Matthew Jerome ESOPHAG OGASTRODUODENOSCOPY 2 Hepatology Kishore Rodriguez.B.SLilian Moise [facility] [place] [address] Telemedicine Transplant 2 Lab Laboratory Medicine Karin, 2 Adeline Gannon M.D., Ph.D. [address] [place] [phone] Lab Laboratory Medicine Karin, 2 Adeline Gannon M.D., Ph.D. [address] [place] [phone] Office Visit Transplant Karin, Olinda Gannon M.D., Ph.D. [address] [place] [phone] Appointment Radiology Matthew Jerome 2 Y M.B.B.SSuma, Lilian [address] [place] [phone] Appointment Gastroenterology demian Silver, 2 Hepatology Yue Burciaga M.D. [address] [place] [address] [phone] Office Visit Gastroenterology and Matthew Jerome 2 Hepatology Jennifer M.B.B.SLilian Moise [address] [place] [phone] Appointment Radiology Matthew Jerome 2 Y M.B.B.SLilian Moise [address] [place] [phone] Scheduled Orders Name Type Priority Associated Diagnoses Order S chedule US Abdomen Complete Imaging RAD - Routine [...] Name Type Priority Associated Diagnoses Order S [facility] Internal Outpatient Referral Routine Ex pected: Medicine office 12/16/2021 visit (clinic) (Approximate) , Expires: 03/04/2023 Sleep Medicine - Outpatient Referral Routine Insomnia Expe cted: General consult 12/02/2021 (clinic) (Approximate), Expires: 03/04/2023 documented as of this encounter Visit Diagnoses Diagnosis Acute And Subacute Hepatic Failure Witho ut Coma (HCC) - Primary Pancreatitis Chronic (HCC) [employer] Use Of Opiate Analgesic Alcohol Use Unspecified With Unspecified Alcohol Induced Disorder (HCC) Alcoholic Cirrhosis Of Liver Without Asc ites (HCC) Ascites Chronic Insomnia High Risk Medication Cirrhosis Alcoholic (HCC) Hypertension Portal (HCC) documented in this encounter Additional Health Concerns Assessment Noted Time PHQ-9 Depression Total Score: 10 10/06/2021 5:00 PM CD T documented as of this encounter Care Teams Freelance Data Entry Relationship Specialty Start Date End Date Ana Red P.A.-C. PCP - General Internal Medicine 12/01/[address] [place], [place] [address] [phone] [facility] [place] lab 08/25/21 Ervin Schroeder MD Referring Provider Family Medicine 03/24/[address] [place], [place] [address], [place] [phone] documented as of this encounter
--- OUTSIDE RECORDS SUMMARY | 2022-01-31 04:25 | XMS_ITS | Encounter Summary ---
:1990 Author Organization [facility] Address [address] [place] [address] Care Team Providers Name Role Phone Ana Red P.A.-C. Primary Care Provider [phone] Encounter Details Date Type Department Care Team Description 12/02/2021 Clinical Communication Division of [facility] Slick Andino, Internal Medicine, MCee., [facility] [address] [place] [address] [place] [phone] [place], [place] [phone] (Work) [phone] Social History Tobacco Use Types Packs/Day Years [...] do you attend moravian or Never 2021 restoration services? 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 [address] [place] [address] Surgery Gastroenterology and Matthew Jerome ESOPHAG OGASTRODUODENOSCOPY 2 Hepatology Tyrell Rodriguez M.D. [address] [place] [address] Telemedicine Transplant 2 Lab Laboratory Medicine Karin, 2 Adeline Gannon M.D., Ph.D. [address] [place] [phone] Lab Laboratory Medicine Karin, 2 Adeline Gannon M.D., Ph.D. [address] [place] [phone] Office Visit Transplant Karin, 2 Adeline Gannon M.D., Ph.D. [address] [place] [address] [phone] Appointment Radiology Matthew Jerome 2 Tyrell Rodriguez M.D. [address] [place] [address] Appointment Gastroenterology and Adrianne, 2 Hepatology Yue Burciaga M.D. [address] [place] [phone] Office Visit Gastroenterology and Matthew Jerome 2 Hepatology Tyrell Rodriguez M.D. [address] [place] [phone] Appointment Radiology Matthew Jerome 2 YTyrell M.D. [address] [place] [address] Scheduled Procedures Name Priority Associated Diagnoses Date/Time ESOPHAGOGASTRODUODENOSCOPY Cirrhosis Alc oholic (HCC) 02/10/2022 8:45 AM CDT Hypertension Portal (HCC) documented as of this encounter Visit Diagnoses Not on filedocumented in this encounter Additional Health Concerns Assessment Noted Time PHQ-9 Depression Total Score: 10/06/2021 5:00 PM CD T documented as of this encounter Care Teams Renal Dialysis Rn Relationship Specialty Start Date End Date Ana Red P.A.-C. PCP - General Internal Medicine 12/01/[address] [place] [phone] [facility]- [place] lab 08/25/21 Ervin Schroeder MD Referring Provider Family Medicine 03/24/[address] [place] [address] documented as of this encounter
--- OUTSIDE RECORDS SUMMARY | 2022-01-31 04:25 | XMS_ITS | Encounter Summary ---
:1990 Author Organization [facility] Address [address] [place] [address] Care Team Providers Name Role Phone Ana Red P.A.-C. Primary Care Provider [phone] Encounter Details Date Type Department Care Team Description 11/26/2021 Clinical Communication Division of Luly Bentley, Internal Medicine, M.DP[place], in [address] [place] [address] [place] [phone] [place], [place] [phone] (Work) [phone] Social History Tobacco Use Types Packs/Day Years [...] do you attend druze or Never 2021 taoist services? Do you belong to any clubs or No 07/17/2021 organizations such as druze groups, unions, fraOnDeck or athletic groups, or school groups? 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 Plan of Treatment Upcoming Encounters Date Type Specialty Care Team Description Office Visit Community Internal Neda, 2 Medicine Vernell Perez [address] [place] [phone] Appointment Radiology Matthew Jerome 2 YTyrell, Lilian [address] [place] [phone] Hospital Gastroenterology and Matthew Jerome 2 Encounter Hepatology Tyrell Rodriguez, Lilian [address] [place] [phone] Surgery Gastroenterology and Matthew Jerome ESOPHAG OGASTRODUODENOSCOPY 2 Hepatology Joshua RodriguezBSumaBLilian Bedolla [address] [place] [phone] Telemedicine Transplant 2 Lab Laboratory Medicine Karin, 2 Adeline Gannon M.D., Ph.D. [address] [place] [phone] Lab Laboratory Medicine Karin, 2 Adeline Gannon M.D., Ph.D. [address] [place] [phone] Office Visit Transplant Karin, 2 Adeline Gannon M.D., Ph.D. [address] [place] [phone] Appointment Radiology Matthew Jerome 2 Elizabeth Rodriguez.B.B.SSuma, Lilian [address] [place] [phone] Appointment Gastroenterology and Adrianne, 2 Hepatology Yue Burciaga M.D. [address] [place] [phone] Office Visit Gastroenterology and Matthew Jerome 2 Hepatology Joshua RodriguezB.B.SLilian Moise [address] [place] [phone] Appointment Radiology Matthew Jerome 2 Y M.B.B.SLilian Moise [address] [place] [phone] Scheduled Procedures Name Priority Associated Diagnoses [...] CDT eGFR-Black/Afri >90 >=60 12/02/2021 OWAT can Kenyan mL/min/BSA 6:46 PM CDT Comment: ----ADDITIONAL INFORMATION---- [...] Volume Laterality Blood (Blood, 12/02/2021 4:14 PM 08/02/20 22 6:28 Venous) CDT PM CDT Shannan Rand M.D. LAB BLOOD ADD-ON Performing Organization Address City/State/ZIP Code Phon e Number [facility]- [address] [place] [address] [place] [address] System in [place] [address] documented in this encounter Visit Diagnoses Diagnosis Change Mental Status - Primary Cirrhosis Alcoholic (HCC) Hypertension Portal (HCC) documented in this encounter Additional Health Concerns Assessment Noted Time PHQ-9 Depression Total Score: 10 10/06/2021 5:00 PM CD T documented as of this encounter Care Teams Casino Accountant Relationship Specialty Start Date End Date Ana Red P.A.-C. PCP - General Internal Medicine 12/01/[address] [place] [phone] [facility]- [place] lab 08/25/21 Ervin Schroeder MD Referring Provider Family Medicine 03/24/211979 [address] [place] [address] documented as of this encounter
--- OUTSIDE RECORDS SUMMARY | 2022-01-31 04:25 | XMS_ITS | Encounter Summary ---
:1990 Author Organization [facility] Address [address] [place] [address] Care Team Providers Name Role Phone Ana Red P.A.-C. Primary Care Provider [phone] Encounter Details Date Type Department Care Team Description 12/02/2021 Clinical Communication Department of Internal [facility] Medicine in [facility], D.[facility] [address] [place] [phone] Social History Tobacco Use Types Packs/Day Years [...] do you attend quaker or Never 2021 cheondoism services? Do you belong to any clubs or No 07/17/2021 organizations such as quaker groups, unions, fraXquva or athletic groups, or school groups? 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 Telephone Encounter - Sunny Arnold D.O. - 12/03/2021 10:06 AM CDT Please schedule at the 1st available facility, the patient does have transportation. Please call andoffer the 1st available appointment in the region. Electronically signed by: Sunny Arnold D.O. 12/03/21 10:06 AM CDT Telephone Encounter - Jami Lundsara Gannon - 12/02/2021 2:34 PM CDT We are out to the for our Ultrasounds and this particular one is a 90 min doppler. Please advise as we may need to seek another facility. Thank you documented in this encounter Plan of Treatment Upcoming Encounters Date Type Specialty Care Team Description Office Visit Community Internal [facility], 2 Medicine Vernell Perez [address] [place] [phone] Appointment Radiology [facility] 2 Y, M.B.B.S., MJules [address] [place] [phone] [facility] Gastroenterology and [facility] 2 Encounter Hepatology Y M.B.B.S., Lilian [address] [place] [phone] Surgery Gastroenterology and [facility] ESOPHAG OGASTRODUODENOSCOPY 2 Hepatology Y M.B.B.S., MJules [address] [place] [phone] Telemedicine Transplant 2 Lab Laboratory Medicine Karin, 2 Adeline Gannon M.D., Ph.D. [address] [place] [phone] Lab Laboratory Medicine SaraOlinda rondon Adeline Gannon M.D., Ph.D. [address] [place] [phone] Office Visit Transplant KarinOlinda Adeline Gannon M.D., Ph.D. [address] [place] [phone] Appointment Radiology Matthew Jerome 2 Y, M.B.B.SSuma, MJules [address] [place] [phone] Appointment Gastroenterology and Adrianne, 2 Hepatology Yue Burciaga M.D. [address] [place] [phone] Office Visit Gastroenterology and Matthew Jerome 2 Hepatology Jennifer M.B.B.SSuma, MJules [address] [place] [phone] Appointment Radiology Matthew Jerome 2 Y M.B.B.SSuma, Lilian [address] [place] [phone] Scheduled Procedures Name Priority Associated Diagnoses Date/Time ESOPHAGOGASTRODUODENOSCOPY Cirrhosis Alc oholic (HCC) 02/10/2022 8:45 AM CDT Hypertension Portal (HCC) documented as of this encounter Visit Diagnoses Not on filedocumented in this encounter Additional Health Concerns Assessment Noted Time PHQ-9 Depression Total Score: 10 10/06/2021 5:00 PM CD T documented as of this encounter Care Teams Director Payment Relationship Specialty Start Date End Date Ana Red P.A.-C. PCP - General Internal Medicine 12/01/[address] [place] [address] ADI Chua [phone] [facility]- [facility] 08/25/21 Ervin Schroeder MD Referring Provider Family Medicine 03/24/[address] [place] [address] ADI Mejía [address] documented as of this encounter
--- OUTSIDE RECORDS SUMMARY | 2022-01-31 04:25 | XMS_ITS | Encounter Summary ---
:1990 Author Organization [facility] Address [address] [place] [address] Care Team Providers Name Role Phone Ana Red P.A.-C. Primary Care Provider [phone] Encounter Details Date Type Department Care Team Description 12/02/2021 Clinical Communication Pharmacy Prior Auth Jasmyne Keller [phone] Social History Tobacco Use Types Packs/Day Years [...] do you attend sabianist or Never 2021 evangelical services? Do you belong to any clubs or No 07/17/2021 organizations such as sabianist groups, unions, fraHigh Brew Coffee or athletic groups, or school groups? 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 Miscellaneous Notes [...] Community Internal Neda, 2 Medicine Vernell Perez [address] [place] [phone] Appointment Radiology Mtathew Jerome 2 YElizabeth.B.B.Kath, MJules [address] [place] [phone] Hospital Gastroenterology and Queenie Matthew 2 Encounter Hepatology Joshua RodriguezBSumaBGraeme, MJules [address] [place] [phone] Surgery Gastroenterology and [facility] Matthew ESOPHAG OGASTRODUODENOSCOPY 2 Hepatology Joshua RodriguezB.BGraeme, MJules [address] [place] [phone] Telemedicine Transplant 2 Lab Laboratory Medicine Olinda Frazier M.D., Ph.D. [address] [place] [phone] Lab Laboratory Medicine Olinda Frazier M.D., Ph.D. [address] [place] [phone] Office Visit Transplant Olinda Frazier M.D., Ph.D. [address] [place] [address] Appointment Radiology Matthew Jerome 2 YTyrell, Lilian [address] [place] [phone] Appointment Gastroenterology and Adrianne 2 Hepatology Yue Burciaga M.D. [address] [place] [address] Office Visit Gastroenterology and Matthew Jerome 2 Hepatology Tyrell Rodriguez, Lilian [address] [place] [address] Appointment Radiology Matthew Jerome 2 YTyrell, Lilian [address] [place] [address] Scheduled Procedures Name Priority Associated Diagnoses Date/Time ESOPHAGOGASTRODUODENOSCOPY Cirrhosis Alc oholic (HCC) 02/10/2022 8:45 AM CDT Hypertension Portal (HCC) documented as of this encounter Visit Diagnoses Not on filedocumented in this encounter Additional Health Concerns Assessment Noted Time PHQ-9 Depression Total Score: 10 10/06/2021 5:00 PM CD T documented as of this encounter Care Teams Dynamo Tender Relationship Specialty Start Date End Date Ana Red P.A.-C. PCP - General Internal Medicine 12/01/[address] [place] [address] [place] [phone] [facility]- [place] lab 08/25/21 Ervin Schroeder MD Referring Provider Family Medicine 03/24/[address] [place] [address] [place] [address] documented as of this encounter
--- OUTSIDE RECORDS SUMMARY | 2022-01-31 04:25 | XMS_ITS | Encounter Summary ---
:1990 Author Organization [facility] Address [address] [place] [address] Care Team Providers Name Role Phone Ana Red P.A.-C. Primary Care Provider [phone] Encounter Details Date Type Department Care Team Description 11/26/2021 Clinical Communication Department of Matthew Jerome Gastroenterology in [place] [address] [place] [phone] Social History Tobacco Use Types Packs/Day Years [...] do you attend sabianist or Never 2021 taoist services? Do you belong to any clubs or No 07/17/2021 organizations such as sabianist groups, unions, fraezTaxi or athletic groups, or school groups? 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 documented as of this encounter Plan of Treatment Upcoming Encounters Date Type Specialty Care Team Description Office Visit [facility], 2 Medicine Vernell Perez [address] [place] [phone] Appointment Radiology Matthew Jerome 2 YTyrell, MJules [address] [place] [phone] Hospital Gastroenterology and Matthew Jerome 2 Encounter Hepatology Tyrell Rodriguez, Lilian [address] [place] [phone] Surgery Gastroenterology and Matthew Jerome ESOPHAG OGASTRODUODENOSCOPY 2 Hepatology Joshua RodriguezBSumaB.SSuma, Lilian [address] [place] [phone] Telemedicine Transplant 2 Lab Laboratory Medicine Karin, 2 Adeline Gannon M.D., Ph.D. [address] [place] [phone] Lab Laboratory Medicine Karin, 2 Adeline Gannon M.D., Ph.D. [address] [place] [phone] Office Visit Transplant Karin, 2 Adeline Gannon M.D., Ph.D. [address] [place] [phone] Appointment Radiology Matthew Jerome 2 Jennifer M.B.B.SSuma, Lilian [address] [place] [address] Appointment Gastroenterology and Adrianne, 2 Hepatology Yue Burciaga M.D. [address] [place] [phone] Office Visit Gastroenterology and Matthew Jerome 2 Hepatology Elizabeth Rodriguez.B.B.SSuma, Lilian [address] [place] [phone] Appointment Radiology Matthew Jerome 2 Y M.B.BLilian Bedolla [address] [place] [address] Scheduled Procedures Name Priority Associated Diagnoses Date/Time ESOPHAGOGASTRODUODENOSCOPY Cirrhosis Alc oholic (HCC) 02/10/2022 8:45 AM CDT Hypertension Portal (HCC) documented as of this encounter Visit Diagnoses Not on filedocumented in this encounter Additional Health Concerns Assessment Noted Time PHQ-9 Depression Total Score: 10/06/2021 5:00 PM CD T documented as of this encounter Care Teams Band Splicer Relationship Specialty Start Date End Date Ana Red P.A.-C. PCP - General Internal Medicine 12/01/[address] [place] [phone] [facility]- [place] lab 08/25/21 Ervin Schroeder MD Referring Provider Family Medicine 03/24/[address] [place] [address] documented as of this encounter
--- OUTSIDE RECORDS SUMMARY | 2022-01-31 04:25 | XMS_ITS | Encounter Summary ---
:1990 Author Organization [facility] Address [address] [place] [address] Care Team Providers Name Role Phone Ana Red P.A.-C. Primary Care Provider [phone] Reason for Referral Outpatient (Routine) - Authorized Specialty Diagnoses / Procedures Referred By Contact Refer red To Contact Community Internal Ana Red [facility] PAshish [address] [facility] [place] [address] Referral ID Status Reason Start Date Expiration Date Visits V isits Requested Authorized [id number] Authorized 12/02/2021 12/02/2022 1 1 Encounter Details Date Type Department Care Team Description 12/02/2021 Orders Only [facility] MNT Ana Red P.A.-C. [address] [facility] [place] [phone] (Wo rk) Social History [...] do you attend christian or Never 2021 caodaism services? 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 encounter Plan of Treatment Upcoming Encounters Date Type Specialty Care Team Description Office Visit Community Internal Neda, 2 Medicine Vernell Perez 300 [place] [phone] Appointment Radiology Matthew Jerome 2 Y M.B.B.SSuma, MJules [address] [place] [phone] Hospital Gastroenterology and Queenie Matthew 2 Encounter Hepatology Jennifer MSumaBSumaBGraeme, Lilian [address] [place] [phone] Surgery Gastroenterology and Matthew Jerome ESOPHAG OGASTRODUODENOSCOPY 2 Hepatology Joshua RodriguezB.B.SSuma, Lilian [address] [place] [phone] Telemedicine Transplant 2 Lab Laboratory Medicine Karin, Olinda Gannon M.D., Ph.D. [address] [place] [phone] Lab Laboratory Medicine Olinda Frazier M.D., Ph.D. [address] [place] [phone] Office Visit Transplant Olinda Frazier M.D., Ph.D. [address] [place] [phone] Appointment Radiology Matthew Jerome 2 Y, M.B.B.SSuma, MJules [address] [place] [phone] Appointment Gastroenterology and Adrianne, 2 Hepatology Yue Burciaga M.D. [address] [place] [address] Office Visit Gastroenterology and Matthew Jerome 2 Hepatology Tyrell Rodriguez M.D. 10[address] [place] [phone] Appointment Radiology LuisMatthew abdul 2 YTyrell M.D. [address] [place] [address] Scheduled Procedures Name Priority Associated Diagnoses Date/Time ESOPHAGOGASTRODUODENOSCOPY Cirrhosis Alc oholic (HCC) 02/10/2022 8:45 AM CDT Hypertension Portal (HCC) Scheduled Referrals Name Type Priority Associated Diagnoses Order S [facility] Internal Outpatient Referral Routine Ex pected: Medicine office 12/16/2021, visit (clinic) Expires: 05/31/2022 documented as of this encounter Visit Diagnoses Not on filedocumented in this encounter Additional Health Concerns Assessment Noted Time PHQ-9 Depression Total Score: 10 10/06/2021 5:00 PM CD T documented as of this encounter Care Teams Electronic Equipment Maint Tech Relationship Specialty Start Date End Date Ana Red P.A.-C. PCP - General Internal Medicine 12/01/[address] [place] [phone] [facility]- [place] lab 08/25/21 Ervin Schroeder MD Referring Provider Family Medicine 03/24/[address] [place] [address] documented as of this encounter
--- OUTSIDE RECORDS SUMMARY | 2022-01-31 04:25 | XMS_ITS | Encounter Summary ---
:1990 Author Organization [facility] Address [address] [place] [address] Care Team Providers Name Role Phone Ana Red P.A.-C. Primary Care Provider [phone] Encounter Details Date Type Department Care Team Description 12/04/2021 Clinical Communication Division of Jethro, Gastroenterology in Elizabeth Echevarria [place], [place] [address] [facility] [address] [place] [phone] Social History Tobacco Use Types Packs/Day Years [...] do you attend pentecostal or Never 2021 judaism services? 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 [facility] [place] [address] Telemedicine Transplant 2 Lab Laboratory Medicine Karin, 2 Adeline Gannon M.D., Ph.D. [address] [place] [phone] Lab Laboratory Medicine Karin, 2 Adeline Gannon M.D., Ph.D. [address] [place] [phone] Office Visit Transplant Karin, 2 Adeline Gannon M.D., Ph.D. [address] [place] [phone] Appointment Radiology Matthew Jerome 2, M.BSumaBLilian Bedolla [address] [place] [phone] Appointment Gastroenterology and Adrianne, 2 Hepatology Yue Burciaga M.D. [address] [place] [phone] Office Visit Gastroenterology and Matthew Jerome 2 Hepatology Joshua RodriguezBSumaBLilian Bedolla [address] [place] [phone] Appointment Radiology MoMatthew abdul 2, M.B.B.S., M.D. [address] [place] [phone] Scheduled Procedures Name Priority Associated Diagnoses Date/Time ESOPHAGOGASTRODUODENOSCOPY Cirrhosis Alc oholic (HCC) 02/10/2022 8:45 AM CDT Hypertension Portal (HCC) documented as of this encounter Visit Diagnoses Not on filedocumented in this encounter Additional Health Concerns Assessment Noted Time PHQ-9 Depression Total Score: 10/06/2021 5:00 PM CD T documented as of this encounter Care Teams Senior Nurse Manager Relationship Specialty Start Date End Date Ana Red P.A.-C. PCP - General Internal Medicine 12/01/[address] [place] [phone] [facility]- [place] lab 08/25/21 Ervin Schroeder MD Referring Provider Family Medicine 03/24/[address] [place] [address] documented as of this encounter
--- OUTSIDE RECORDS SUMMARY | 2022-01-31 04:25 | XMS_ITS | Encounter Summary ---
:1990 Author Organization [facility] Address [address] [place] [address] Care Team Providers Name Role Phone Ana Red P.A.-C. Primary Care Provider [phone] Encounter Details Date Type Department Care Team Description 11/26/2021 [facility] Dena Schroeder tohepatitis Non Alcoholic (Primary Dx); AND CLINICS Ervin Schaefer M.D. Unspecified [facility]rhosis [facility] [address] [facility] [address] [place] [address] [phone] Social History Tobacco Use Types Packs/Day Years [...] do you attend rastafari or Never 2021 anabaptism services? Do you belong to any clubs or No 07/17/2021 organizations such as rastafari groups, unions, fraCrestHire or athletic groups, or school groups? 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 documented as of this encounter Plan of Treatment Upcoming Encounters Date Type Specialty Care Team Description Office Visit Community Internal Neda, 2 Medicine Vernell Perez [address] [place] [phone] Appointment Radiology Matthew Jerome 2 YTyrell, Lilian [address] [place] [phone] Hospital Gastroenterology and Matthew Jerome 2 Encounter Hepatology Tyrell RodriguezLilian [address] [place] [address] Surgery Gastroenterology and Matthew Jerome ESOPHAG OGASTRODUODENOSCOPY 2 Hepatology Joshua RodriguezBSumaBLilian Bedolla [facility]5 [place] [address] Telemedicine Transplant 2 Lab Laboratory Medicine Karin, 2 Adeline Gannon M.D., Ph.D. [address] [place] [phone] Lab Laboratory Medicine Karin, 2 Adeline Gannon M.D., Ph.D. [address] [place] [phone] Office Visit Transplant Karin, 2 Adeline Gannon M.D., Ph.D. [address] [place] [phone] Appointment Radiology Matthew Jerome 2 MSumaB.BGraeme, Lilian [address] [place] [phone] Appointment Gastroenterology and Adrianne, 2 Hepatology Yue Burciaga M.D. [address] [place] [phone] Office Visit Gastroenterology and Matthew Jerome 2 Hepatology Jennifer M.B.B.Lilian [place] [address] [place] [phone] Appointment Radiology Mousa, Tyrell May 2, M.D. [address] [place] [address] Scheduled Procedures Name Priority Associated Diagnoses Date/Time ESOPHAGOGASTRODUODENOSCOPY Cirrhosis Alc oholic (HCC) 02/10/2022 8:45 AM CDT Hypertension Portal (HCC) documented as of this encounter Visit Diagnoses Diagnosis Steatohepatitis Non Alcoholic - Primary Unspecified Cirrhosis Of Liver (HCC) Cirrhosis Alcoholic (HCC) Hypertension Portal (HCC) documented in this encounter Additional Health Concerns Assessment Noted Time PHQ-9 Depression Total Score: 10/06/2021 5:00 PM CD T documented as of this encounter Care Teams Elevator Erector Relationship Specialty Start Date End Date Ana Red P.A.-C. PCP - General Internal Medicine 12/01/[address] [place] [phone] [facility]- [place] lab 08/25/21 Ervin Schroeder MD Referring Provider Family Medicine 03/24/[address] [place] [address] documented as of this encounter
--- OUTSIDE RECORDS SUMMARY | 2022-01-31 04:25 | XMS_ITS | Encounter Summary ---
:1990 Author Organization [facility] Address [address] [place] [address] Care Team Providers Name Role Phone Ana Red P.A.-C. Primary Care Provider [phone] Reason for Visit Reason Comments Abdominal Distention Encounter Details Date Type Department Care Team Description 12/04/2021 Emergency [facility] [place], Ascites (Primary Dx); Emergency Department Abdullahi Mendez M.D. Insomnia [address] [place] [address] [address] [place] [phone] (Wo rk) Social History Tobacco Use Types [...] do you attend voodoo or Never 2021 mandaeism services? Do you [...] or the highest technical, or vocational p rlof degree you have received? Sex Assigned at Date Recorded Female 04/12/2021 7:39 PM [employer] documented as of this encounter Last [...] calling the Office of Patient Experience at [phone]. If we can do better, please let us know that too. AttachmentsThe following attachments cannot be sent through Care Everywhere. Paracentesis Care After (Saudi Arabian)Ascites (Saudi Arabian)Trazodone Tablets (S[place] Arabian) documented in this encounter Medications at Time [...] capsule 0 06/202112/30/2021 220 (50 mg zinc) mg total) by [...] (CHRONULAC) Take 15 mL (10 g 0 11/12/1912/10/2021 10 gram/15 mL solution total) by mouth [...] 800-160 mg per tablet tablet daily for traZODone (DESYREL) 50 Take 1 tablet (50 [...] Vitamin A documented as of this encounter Progress Notes Vahe Jorge R.R.T., L.R.T. - 12/04/2021 9:43 AM CDT RT [...] agree or amended. ED Course as of 12/09/217 Luz Marina Dec 04, 2021 0843 LFTs are consistent [...] Zuniga M.D. 12/04/21 0851 Abdullahi Zuniga M.D. 12/09/21 2137 Wolfgang Hollingsworth - 12/04/2021 8:32 AM CDT [...] in the past. 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 [address] [place] [phone] Hospital Gastroenterology and Matthew Jerome 2 Encounter Hepatology Tyrell Rodriguez M.D. [address] [place] [phone] Surgery Gastroenterology and Matthew Jerome ESOPHAG OGASTRODUODENOSCOPY 2 Hepatology Tyrell Rodriguez M.D. [facility] [place] [phone] Telemedicine Transplant 2 Lab Laboratory Medicine Olinda Frazier M.D., Ph.D. [address] [place] [phone] Lab Laboratory Medicine Olinda Frazier M.D., Ph.D. [address] [place] [phone] Office Visit Transplant Karin, Olinda Gannon M.D., Ph.D. [address] [place] [phone] Appointment Radiology Matthew Jerome 2 YTyrell M.D. [address] [place] [phone] Appointment Gastroenterology and Adrianne, 2 Hepatology Yue Burciaga M.D. [address] [place] [phone] Office Visit Gastroenterology and Matthew Jerome 2 Hepatology Vik RodriguezBLilian Bedolla [address] [place] [phone] Appointment Radiology Matthew Jerome 2, M.B.BLilian Bedolla [address] [place] [phone] Scheduled Procedures Name Priority Associated Diagnoses Date/Time [...] CDT) athologist Signature FIO2 0.21 0.21=AIR 12/04/2021 [facility] 7:34 AM CDT Spont. 18 12/04/2021 [facility] breaths/min 7:34 AM CDT Specimen Anatomical Collection Method Collection Time Receive d Time (Source) Location / / Volume Laterality Blood 12/04/2021 7:30 AM 7:34 CDT AM CDT Sree Goodman M.D., M.A. LAB BLOOD NON ADD-ON Performing Organization Address City/State/ZIP Code Phon e Number [facility] - [address] [place], [place] [address] [place] [address] Laboratories-[facility] [address] hCG (Human Chorionic Gonadotropin), Quantitative, (12/04/2021 7:30 AM CDT) athologist Signature HCG, <0.5 <5 IU/L 12/04/[address] [facility] Quantitative, 7:51 AM CDT , P Specimen Anatomical Collection Method Collection Time Receive d Time (Source) Location / / Volume Laterality Blood (Blood, 12/04/2021 7:30 AM 12/05/19 7:34 Venous) CDT AM CDT Sree Goodman M.D., M.A. LAB BLOOD ADD-ON Performing Organization Address City/[facility] Phon e Number [facility] - [address] [place], [place] [address] [place] [address] [facility] 200 [facility] (ABNORMAL) Prothrombin Time (PT) (12/04/2021 7:30 AM CDT) [facility] gist Method Time Signature Prothrombin 31.1 (H) 9.4 - 12.5 12/04/[address] [facility] Time, P sec 7:44 AM CDT INR 2.8 0.9 - 1.1 12/04/[address] [facility] 7:44 AM CDT Comment: ----ADDITIONAL INFORMATION---- Standard intensity warfarin therapeutic range: 2.0 to 3.0 ?? High intensity warfarin therapeutic rang e: 2.5 to 3.5 Specimen Anatomical Collection Method Collection Time Receive d Time (Source) Location / / Volume Laterality Blood (Blood, 12/04/2021 7:30 AM 12/05/19 22 7:34 Venous) CDT AM CDT Sree Goodman M.D., M.A. LAB BLOOD ADD-ON Performing Organization Address City/State/[facility] Code Phon e Number [facility] - [address] [place], [place] [address] [place] [address] [facility] [address] [facility] Lipase (12/04/2021 7:30 AM CDT) athologist Signature Lipase, S 44 13 - 60 U/L 12/04/2021 8:30 DTL AM CDT Specimen Anatomical Collection Method Collection Time Receive d Time (Source) Location / / Volume Laterality Blood (Blood, 12/04/2021 7:30 AM 12/05/19 22 8:04 Venous) CDT AM CDT Sree Goodman M.D., M.A. LAB BLOOD ADD-ON Performing Organization Address City/State/[facility] Phon e Number [facility] - [address] [place], [place] [phone] [place] [address] (ABNORMAL) Hepatic Function Panel (12/04/2021 7:30 AM CDT) [facility] [employer] Method Time Signature Bilirubin, Total, S 13.1 [...] M.A. LAB BLOOD ADD-ON Performing Organization Address City/State/[facility] Code Phon e Number [facility] - [address] [place], [place] [phone] [place] [address] (ABNORMAL) CBC with Differential, Blood (12/04/2021 7:30 AM CDT) [facility] [employer] Method Time Signature Hemoglobin 8.0 (L) 11.6 [...] Organization Address City/State/ZIP Code Phon e Number [facility] - [address] [place], [place] [address] [facility] [place] [address] [facility] [address] (ABNORMAL) Basic [...] CDT eGFR-Black/Afri >90 >=60 12/04/2021 DTL can [place] mL/min/BSA 8:53 AM CDT Comment: ----ADDITIONAL INFORMATION---- [...] Organization Address City/State/ZIP Code Phon e Number [facility] - [address] [place], [place] [address] [facility] [place] [address] [facility] [address] [place] [address] [facility] [address] (ABNORMAL) Blood Gas with Coox, Venous (12/04/2021 7:30 AM CDT) [facility] gist Method Time Signature Venous pO2 [...] 7:38 AM CDT Venous Sample Venipunct 12/04/[address] [facility] Site 7:38 AM CDT Specimen Anatomical Collection Method Collection Time Receive d Time (Source) Location / / Volume Laterality Blood (Blood, 12/04/2021 7:30 AM 12/05/19 7:34 Venous) CDT AM CDT Sree Goodman M.D., M.A. LAB BLOOD NON ADD-ON Performing Organization Address City/State/ZIP Code Phon e Number [facility] - [address] [place], [place] [address] [place] [address] [facility] [address] [facility] documented in this encounter Visit Diagnoses Diagnosis Ascites - Primary Insomnia Cirrhosis Alcoholic (HCC) Hypertension Portal (HCC) documented [...] documented as of this encounter Care Teams A P Mechanic Relationship Specialty Start Date End Date Ana Red P.A.-C. PCP - General Internal Medicine 12/01/[address] [place] [phone] [facility] [place] [facility] 08/25/21 Ervin Schroeder MD Referring Provider Family Medicine 03/24/[address] [place] [address], [place] [phone] documented as of this encounter
--- OUTSIDE RECORDS SUMMARY | 2022-01-31 04:26 | XMS_ITS | Encounter Summary ---
:1990 Author Organization [facility] Address [address] [place] [address] Care Team Providers Name Role Phone Elsewhere, Pcp Primary Care Provider Unavailable Reason for Referral Outpatient (Routine) - Authorized Specialty Diagnoses / Procedures Referred By Contact Refer red To Contact Nicotine Dependence Diagnoses Abuse Tobacco Smoking Ervin Schroeder [facility] [address] [place] [address] Referral ID Status Reason Start Date Expiration Date Visits V isits Requested Authorized [id number] Authorized 11/26/2021 11/26/2022 1 1 Encounter Details Date Type Department Care Team Description 11/14/2021 [facility] Ervin Schroeder Tobacco Smoking (Primary Dx); AND CLINICS TOBY Schaefer M.D. Unspecified Cirrhosis Of Liver (HCC) CLINIC [address] [facility] [address] [place], [place] [address] [phone] Social History Tobacco Use Types Packs/Day Years [...] do you attend evangelical or Never 2021 synagogue services? 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 documented as of this encounter Plan of Treatment Upcoming Encounters Date Type Specialty Care Team Description Office Visit Community Internal Neda, 2 Medicine Vernell Perez [address] [place] [address] [place] [phone] Appointment Radiology Queenie Matthew 2 YJoshuaB.B.Kath, Lilian [address] [place] [phone] Hospital Gastroenterology and [place], Matthew 2 Encounter Hepatology Joshua RodriguezBSumaBLilian Bedolla [address] [place] [phone] Surgery Gastroenterology and [facility], Matthew ESOPHAG OGASTRODUODENOSCOPY 2 Hepatology Joshua RodriguezBSumaBGraeme, Lilian [address] [place] [phone] Telemedicine Transplant 2 Lab Laboratory Medicine Karin, Olinda Gannon M.D., Ph.D. [address] [place] [phone] Lab Laboratory Medicine Olinda Frazier M.D., Ph.D. [address] [place] [phone] Office Visit Transplant Karin, Olinda Gannon M.D., Ph.D. [address] [place] [phone] Appointment Radiology Matthew Jerome 2 YJoshuaB.B.SSuma, Lilian [address] [place] [phone] Appointment Gastroenterology and Adrianne, 2 Hepatology Yue Burciaga M.D. [address] [place] [phone] Office Visit Gastroenterology and Matthew Jerome 2 Hepatology Tyrell Rodriguez, Lilian [address] [place] [phone] Appointment Radiology Queenie Matthew 2 Tyrell Rodriguez M.D. [address] [place] [phone] Scheduled Procedures Name Priority Associated Diagnoses Date/Time [...] documented as of this encounter Care Teams Coating Inspector Relationship Specialty Start Date End Date Elsewhere, Pcp PCP - General Family Medicine 03/10/20 11/30/21 [facility] [place] [facility] 08/25/21 Ervin Schroeder MD Referring Provider Family Medicine 03/24/[address] [place] [address] documented as of this encounter
--- OUTSIDE RECORDS SUMMARY | 2022-01-31 04:26 | XMS_ITS | Encounter Summary ---
:1990 Author Organization [facility] Address [address] [place] [address] Care Team Providers Name Role Phone Elsewhere, Pcp Primary Care Provider Unavailable Encounter Details Date Type Department Care Team Description 11/18/2021 Clinical Communication [facility] PRE/POS T Alina Carranza R, [address] [place] [address] [phone] Social History Tobacco Use Types Packs/Day Years [...] do you attend sabianism or Never 2021 judaism services? 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 - 11/18/2021 8:[address] JeromeCatia is scheduled for an EGD with you on 11/24/21. She tested positive for covid on 11/09/21. Also, she is currently an inpatient in [place]. If you have concerns, please notify patient andscheduling. Thank you. documented in this encounter Plan of Treatment Upcoming Encounters Date Type Specialty Care Team Description Office Visit Community Internal Neda, 2 Medicine Vernell Perez [address] [place] [address] [facility] [place] [phone] Appointment Radiology Matthew Jerome 2 YTyrell, Lilian [address] [place] [phone] [facility] Gastroenterology and [facility], Matthew 2 Encounter Hepatology Tyrell Rodriguez M.D. [address] [place] [phone] Surgery Gastroenterology and [facility] [place] ESOPHAG OGASTRODUODENOSCOPY 2 Hepatology Tyrell Rodriguez M.D. [address] [place] [phone] Telemedicine Transplant 2 Lab Laboratory Medicine Karin, 2 Adeline Gannon M.D., Ph.D. [address] [place] [phone] Lab Laboratory Medicine Karin, 2 Adeline Gannon M.D., Ph.D. [address] [place] [phone] Office Visit Transplant Karin, 2 Adeline Gannon M.D., Ph.D. [address] [place] [phone] Appointment Radiology [facility] 2 Vik RodriguezBGraeme, Lilian [address] [place] [phone] Appointment Gastroenterology and Adrianne, 2 Hepatology Yue Burciaga M.D. [address] [place] [phone] Office Visit Gastroenterology and Matthew Jerome 2 Hepatology YTyrell M.D. [address] [place] [phone] Appointment Radiology LuisMatthew abdul 2 Tyrell Rodriguez M.D. [address] [place] [phone] Scheduled Procedures Name Priority Associated Diagnoses Date/Time ESOPHAGOGASTRODUODENOSCOPY Cirrhosis Alc oholic (HCC) 02/10/2022 8:45 AM CDT Hypertension Portal (HCC) documented as of this encounter Visit Diagnoses Not on filedocumented in this encounter Additional Health Concerns Assessment Noted Time PHQ-9 Depression Total Score: 10 10/06/2021 5:00 PM CD T documented as of this encounter Care Teams Medical Front Desk Specialist Relationship Specialty Start Date End Date Elsewhere, Pcp PCP - General Family Medicine 03/10/20 11/30/21 [facility] [place] [facility] [place] lab 08/25/21 Ervin Schroeder MD Referring Provider Family Medicine 03/24/[address] [place] [phone] documented as of this encounter
--- OUTSIDE RECORDS SUMMARY | 2022-01-31 04:26 | XMS_ITS | Encounter Summary ---
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 MEDICAL ASSEMBLY NOTE 31 year old female with h/o alcoholic cirrhosis and menthal health issues, discharged Wednesday morningfor hyperammonemia. On last admission was having [...] a supervisoryrole. Rosaura Sevilla M.D., M.P.H. 11/17/21 3251 Rosaura Sevilla M.D., M.P.H. 11/17/21 1754 Titi Oswald M.D. - 11/12/2021 1:54 AM [...] the radiology report(s). Titi Oswald M.D. Resident 11/12/21634 Titi Oswald M.D. Resident 11/16/212325 Kindra Dickson RSumaN. - 11/12/2021 1:48 AM CDT Patient presents to the [facility] via EMS for altered mental status. Patient was discharged yesterday from [facility] for hospitalization of hepatic encephalopathy. Patient's [...] mouth, etc. Patient's eyes are jaundiced. Kindra Dickson R.N. 11/12/21 0152 documented in this encounter [...] coordinate the care. For questions, contact the [place] Covid Care Team (MWCCT): Pager: [phone] In basket: P RST/MCHS COVID-19 POSITIVE Covid Care e-consult NOTE: At the time of testing, patients are instructed to obtain the result by calling the [employer] result line or by checking their online services account. T Hospital Course - Gerard Andino M.D., M.S. [...] She was transferred via EMS to the [facility] Emergency Department. On arrival she was [...] Care Team Description Office Visit [facility] Internal [facility], Medicine Vernell Perez [address] [place] [address] [place] [phone] Appointment Radiology Matthew Jerome 2 YTyrell M.D. [address] [place] [phone] [facility] Gastroenterology and [facility], Matthew 2 Encounter Hepatology Tyrell Rodriguez M.D. [address] [place] [phone] Surgery Gastroenterology and [facility], [place] ESOPHAG OGASTRODUODENOSCOPY 2 Hepatology Tyrell Rodriguez M.D. [address] [place] [phone] Telemedicine Transplant 2 Lab Laboratory Medicine Karin, 2 Adeline Gannon M.D., Ph.D. [address] [place] [phone] Lab Laboratory Medicine Karin, 2 Adeline Gannon M.D., Ph.D. [address] [place] [phone] Office Visit Transplant Karin, 2 Adeline Gannon M.D., Ph.D. [address] [place] [phone] Appointment Radiology [facility] 2 YVikBLilian Bedolla [address] [place] [phone] Appointment Gastroenterology demian Silver, 2 Hepatology Yue Burciaga M.D. [address] [place] [phone] Office Visit Gastroenterology and Matthew Jerome 2 Hepatology YTyrell M.D. [address] [place] [phone] Appointment Radiology LuisMatthew abdul 2 Tyrell Rodriguez M.D. [address] [place] [phone] Scheduled Procedures Name Priority Associated Diagnoses Date/Time ESOPHAGOGASTRODUODENOSCOPY Cirrhosis Alc oholic (HCC) 02/10/2022 8:45 AM CDT Hypertension Portal (HCC) Scheduled Referrals Name Type Priority Associated Diagnoses Order S [facility] Outpatient Referral Routine Cirrhosis Alcoholic Ordered: [...] (ABNORMAL) Dipstick, Urine (11/26/2021 6:59 AM CDT) Patholo gist Method Time Signature Hemoglobin, Trace (A) Negative [...] ORDERABLES Performing Organization Address City/[facility] Phon e Number [facility] [address] pH, Urine (11/26/2021 6:59 AM CDT) P athologist Signature pH, U 6.3 4.5 - 8.0 11/26/2021 8:06 DTL AM CDT Specimen Anatomical Collection Method Collection Time Receive d Time (Source) Location / / Volume Laterality Urine 11/26/2021 6:59 AM 2 7:15 CDT AM CDT Gerard Andino M.D., M.S. LAB URINE ORDERABLES Performing Organization Address City/[facility] Phon e Number [facility] [place] [address] [facility] 200 [facility] Osmolality, Urine (11/26/2021 6:59 AM CDT) P athologist Signature Osmolality, U 325 150 - 1150 11/26/2021 DT mOsm/kg 8:06 AM CDT Specimen Anatomical Collection Method Collection Time Receive d Time (Source) Location / / Volume Laterality Urine 11/26/2021 6:59 AM 2 7:15 CDT AM CDT Gerard Andino M.D., M.S. LAB URINE ORDERABLES Performing Organization Address City/[facility]/ZIP Code Phon e Number [facility] - 200 [place], [place] [address] [place] [address] (ABNORMAL) Microscopic Automated (11/26/2021 6:59 AM CDT) [...] U 1-3 /hpf 11/26/2021 7:48 AM CDT DT Specimen Anatomical Collection Method Collection Time Receive d Time (Source) Location / / Volume Laterality Urine 11/26/2021 6:59 AM 2 7:15 CDT AM CDT Gerard Andino M.D., M.S. LAB URINE ORDERABLES Performing Organization Address City/[facility]/ZIP [facility] Phon e Number [facility] - 200 [place], [place] [address] [place], [place] [phone] [place] [address] Bacterial Culture, Aerobic + Susc, Urine (11/26/2021 6:59 AM CDT) Patholo gist Method Time Signature Urine Culture No growth 11/27/2021 DTL after 1 day 8:35 AM CDT of incubation. Specimen Anatomical Collection Method Collection Time Receive d Time (Source) Location / / Volume Laterality Urine (Urine, 11/26/2021 6:59 AM 11/27/19 7:31 Midstream) CDT AM CDT Comment: Specimen Source Site: Urine Gerard Andino M.D., M.S. LAB MICROBIOLOGY - GENERAL O RDERABLES Performing Organization Address City/[facility] Phon e Number [facility] - [address] [place] [address] (ABNORMAL) Urinalysis with Microscopic: Urine, Midstream (11/26/2021 6:59 AM CDT) [facility] gist Method Time Signature Source Urine, Urine, 11/26/2021 [...] ORDERABLES Performing Organization Address City/[facility] Phon e Number [facility] - [address] [place] [address] [place] [address] CT Abdomen Pelvis with IV Contrast (11/25/2021 [...] meagan venous hypertension. 3. Normal caliber bowel. Jovnana Bergeron M.D. IMG CT PROCEDURES Phosphorus Inorganic (11/25/2021 6:55 AM CDT) athologist Signature Phosphorus 3.2 2.5 - 4.5 11/25/2021 DTL (Inorganic), S mg/dL 7:54 AM CDT Specimen Anatomical Collection Method Collection Time Receive d Time (Source) Location / / Volume Laterality Blood (Blood, 11/25/2021 6:55 AM 11/26/19 22 7:33 Venous) CDT AM CDT Dina Campa M.D. LAB BLOOD ADD-ON Performing Organization Address City/[facility]/ZIP Code Phon e Number [facility] - 200 [place] [address] [facility] Magnesium (11/25/2021 6:55 AM CDT) athologist Signature Magnesium, S 1.7 1.7 - 2.3 11/25/2021 DTL mg/dL 7:54 AM CDT Specimen Anatomical Collection Method Collection Time Receive d Time (Source) Location / / Volume Laterality Blood (Blood, 11/25/2021 6:55 AM 11/26/19 22 7:33 Venous) CDT AM CDT Dina Campa M.D. LAB BLOOD ADD-ON Performing Organization Address City/[facility]/ZIP Code Phon e Number [facility] - 200 [address] [place], [place] [address] [place], [place] [id number] [place] [address] [facility] (ABNORMAL) Basic Metabolic Panel (11/25/2021 6:55 AM [...] 11/25/2021 DTL Black/ mL/min/BSA 7:54 AM CDT Jamaican Comment: ----ADDITIONAL INFORMATION---- Estimated GFR calculated using [...] Address City/State/ZIP Code Phon e Number [facility] - [address] [place], [place] [address] [facility] [place] [address] [facility] [address] (ABNORMAL) CBC with Differential, Blood (11/25/2021 6:55 AM CDT) [facility] gist Method Time Signature Hemoglobin 7.5 (L) [...] Address City/State/ZIP Code Phon e Number [facility] - 200 [address] [place], [place] [address] [facility] [place] [address] [facility] 200 [facility] DX Abdomen Portable Anterior Posterior 1 View [...] on supine radiographs. IUD. Harish Schulz M.D. IMTristan DIAGNOSTIC IMAGING PROCE DURES US Paracentesis with [...] with Differential, Blood (11/24/2021 10:39 AM CDT) [facility] Method Time Signature Hemoglobin 8.4 [...] 11/24/2021 Venous) AM CDT 11:35 AM CDT Dina Campa M.D. LAB BLOOD ADD-ON Performing Organization Address City/State/ZIP Code Phon e Number [facility] - [address] [place] [address] [facility] [place] [address] [facility] 200 [address] [facility] (ABNORMAL) Basic Metabolic Panel (11/23/2021 6:01 AM [...] 11/23/2021 DTL Black/ mL/min/BSA 8:52 AM CDT Jamaican Comment: ----ADDITIONAL INFORMATION---- Estimated GFR calculated using [...] Volume Laterality Blood (Blood, 11/23/2021 6:01 AM 07/24/20 22 7:43 Venous) CDT AM CDT Gerard Andino M.D., M.S. LAB BLOOD ADD-ON Performing Organization Address City/[facility] Phon e Number [facility] - 200 [place], [place] [address] [facility] [place] [address] [address] (ABNORMAL) CBC without Differential (11/23/2021 6:01 AM CDT) [facility] [employer] Method Time Signature Hemoglobin 7.3 (L) 11.6 [...] ADD-ON Performing Organization Address City/[facility] Phon e Number [facility] - 200 [place] [address] [facility] [place] [address] (ABNORMAL) Dipstick, Urine (11/21/2021 6:42 PM CDT) [facility] Method Time Signature Hemoglobin, Large (A) Negative [...] ORDERABLES Performing Organization Address City/[facility] Phon e Number [facility] - 200 [place], [place] [address] [facility] [place] [phone] [place] [address] Osmolality, Urine (11/21/2021 6:42 PM CDT) P athologist Signature Osmolality, U 433 150 - 1150 11/21/2021 DTL mOsm/kg 7:58 PM CDT Specimen Anatomical Collection Method Collection Time Receive d Time (Source) Location / / Volume Laterality Urine 11/21/2021 6:42 PM 2 7:03 CDT PM CDT Jovanna Bergeron M.D. LAB URINE ORDERABLES Performing Organization Address City/[facility]/ZIP Code Phon e Number [facility] - 200 [place], [place] [address] [place] [address] pH, Random, Urine (11/21/2021 6:42 PM CDT) P athologist Signature pH, Random, U 6.5 4.5 - 8.0 11/21/2021 DTL 7:58 PM CDT Specimen Anatomical Collection Method Collection Time Receive d Time (Source) Location / / Volume Laterality Urine 11/21/2021 6:42 PM 2 7:03 CDT PM CDT Jovanna Bergeron M.D. LAB URINE ORDERABLES Performing Organization Address City/State/[facility] Phon e Number [facility] - [address] (ABNORMAL) Microscopic Manual (11/21/2021 6:42 PM [...] M.D. LAB URINE ORDERABLES Performing Organization Address [facility] Phon e Number [facility] - 200 [place] [address] [place] [address] (ABNORMAL) Urinalysis with Microscopic: Urine, Catheter (11/21/2021 6:42 PM CDT) Patholo gist Method Time Signature Source Urine, 11/21/2021 DTL [...] M.D. LAB URINE ORDERABLES Performing Organization Address [facility] Phon e Number [facility] - 200 [place], [place] [address] [place] [address] Laboratories-[address] Bacterial Culture, Aerobic + Susc, Urine (11/21/2021 6:41 PM CDT) Patholo gist Method Time Signature Urine Culture No growth 11/23/2021 DTL after 1 day 6:50 AM CDT of incubation. Specimen (Source) Anatomical Collection Method Collection Time Re ceived Time Location / / Volume Laterality Urine (Urine, 11/21/2021 6:41 11/21/2021 9:34 Indwelling PM CDT PM CDT Catheter) Comment: Specimen Source Site: Urine Jovanna Bergeron M.D. LAB MICROBIOLOGY - GENERAL O RDERABLES Performing Organization Address [facility] Phon e Number [facility] - [address] [place] [address] (ABNORMAL) SPSMA Result (11/21/2021 11:25 AM [...] Reviewed by: Tech 11/21/2021 1:07 PM CDT [facility] Specimen Anatomical Collection Method Collection Time Receive d Time (Source) Location / / Volume Laterality Blood (Blood, 11/21/2021 11:25 11/21/2021 Venous) AM CDT 12:03 PM CDT Shannan Rand M.D. LAB BLOOD ADD-ON Performing Organization Address City/[facility]/ZIP Code Phon e Number [facility] - [address] [place], [place] [address] [place] [address] [facility] [address] Pernicious Anemia Boundary (11/21/2021 11:25 AM CDT) [facility] Vitamin B12 621 180 - 914 11/21/2021 [facility] Assay, S ng/L 6:21 PM CDT Specimen Anatomical Collection Method Collection Time Receive d Time (Source) Location / / Volume Laterality Blood (Blood, 11/21/2021 11:25 11/21/2021 4:05 Venous) AM CDT PM CDT Dina Campa M.D. LAB BLOOD NON ADD-ON Performing Organization Address City/[facility]/ZIP [facility] Phon e Number [facility] [address] [place], [place] [address] [facility] [place] [address] Laboratory Medicine and Pathology [address] [place] (ABNORMAL) Cystatin C with Estimated GFR, S (11/21/2021 11:25 AM CDT) athologist [facility] eGFR by 60 (L) >60 11/21/2021 DTL [...] Address City/State/ZIP Code Phon e Number [facility] - [address] [place], [place] [address] [facility] [place] [address] [facility] [address] (ABNORMAL) Comprehensive Metabolic Panel (11/21/2021 11:25 AM [...] 11/21/2021 DTL Black/ mL/min/BSA 2:53 PM CDT Jamaican Comment: ----ADDITIONAL INFORMATION---- Estimated GFR calculated using [...] Address City/State/ZIP Code Phon e Number [facility] - [address] [place], [place] [address] [facility] [place] [address] [facility] [address] (ABNORMAL) CBC with Differential, Blood (11/21/2021 11:25 AM CDT) [facility] Method Time Signature Hemoglobin 8.4 [...] Address City/State/ZIP Code Phon e Number [facility] - [address] [place], [place] [address] [facility] [place] [address] [facility] [address] Copper, 24 Hour, Urine (11/21/2021 11:00 AM CDT) P athologist Signature Copper, 24 Hr, U 19 9 - 71 11/24/2021 SDSC mcg/24 h 10:42 AM CDT Collection 24 h 11/24/2021 SDSC Duration 10:42 AM CDT Volume 815 mL 11/24/2021 SDSC 10:42 AM CDT Comment: ----ADDITIONAL INFORMATION---- This test was developed and its performa nce characteristics determined by [facility] in a manner consistent with CLIA requirements. This test has not been cleared or approved by the [place] d and Drug Administration. Specimen Anatomical Collection Method Collection Time Receive d Time (Source) Location / / Volume Laterality Urine (Urine, 24 11/21/2021 11:00 022 3:36 Hours) AM CDT PM CDT Shannan Rand M.D. LAB URINE ORDERABLES Performing Organization Address City/[facility] Phon e Number [facility] [address] [place], [place] [address] [facility] [place] [address] Laboratory Medicine and Pathology [address] [...] at or the on-line test catalog at [employer] for m ore information. Specimen Anatomical Collection Method Collection Time Receive d Time (Source) Location / / Volume Laterality Blood (Blood, 11/20/2021 6:38 AM 11/21/19 8:33 Venous) CDT AM CDT Gerard Andino M.D., M.S. LAB BLOOD ADD-ON Performing Organization Address City/State/ZIP Code Phon e Number [facility] - [address] [place], [place] [address] [place] [address] [facility] [address] DX Abdomen Portable [...] reflex Antibody ID) (11/19/2021 2:55 PM CDT) Patholo gist Method Time Signature ABORh B Pos Not 11/19/2021 STRM applicable 3:49 PM CDT Antibody Negative Negative 11/19/2021 STRM Screen 4:03 PM CDT Type & Screen 11/22/2021 11/19/2021 STRM Expiration 23:59 3:49 PM CDT Testing [place] DEFAULT 11/19/2021 STRM Location 3:05 PM CDT Specimen Anatomical Collection Method Collection Time Receive d Time (Source) Location / / Volume Laterality Blood (Blood, 11/19/2021 2:55 PM 11/20/19 22 3:05 Venous) CDT PM CDT Gerard Andino M.D., M.S. LAB BLOOD BANK TEST ORDERABL ES Performing Organization Address City/State/ZIP Code Phon e Number [facility] - [address] [place], [place] [address] [facility] [place] [address] [facility] [address] Sedimentation Rate (11/19/2021 [...] M.S. LAB BLOOD ADD-ON Performing Organization Address City/State/[facility] Phon e Number [facility] - 200 [place], [place] [address] [place] [address] CRP (C-Reactive Protein) (11/19/2021 2:55 PM CDT) P athologist Signature C-Reactive 6.6 <=8.0 mg/L 11/19/2021 DTL Protein (CRP), 3:54 PM CDT S Specimen Anatomical Collection Method Collection Time Receive d Time (Source) Location / / Volume Laterality Blood (Blood, 11/19/2021 2:55 PM 11/20/19 3:29 Venous) CDT PM CDT Gerard Andino M.D., M.S. LAB BLOOD ADD-ON Performing Organization Address [facility] Phon e Number [address] [place] [address] Laboratories-[address] (ABNORMAL) CBC without Differential (11/19/2021 2:55 [...] Performing Organization Address City/[facility]/ZIP [facility] Phon e Number [facility] - [address] [place], [place] [address] [facility] [place] [address] [facility] [address] [facility] Bacteria / Raudel Culture, Blood #2 (11/19/2021 12:59 PM CDT) Patholo gist Method Time Signature [...] RDERABLES Performing Organization Address City/[facility] Phon e Number [facility] - [address] [place] [address] [facility] [address] [facility] Lactate, 3 hour draw (11/19/2021 12:45 PM CDT) P athologist Signature Lactate, P 1.3 0.5 - 2.2 11/19/2021 DTL mmol/L 2:16 PM CDT Specimen Anatomical Collection Method Collection Time Receive d Time (Source) Location / / Volume Laterality Blood (Blood, 11/19/2021 12:45 11/19/2021 1:46 Venous) PM CDT PM CDT Jovanna Bergeron M.D. LAB BLOOD NON ADD-ON Performing Organization Address City/[facility]/ZIP [facility] Phon e Number [facility] - [address] [place], [place] [address] [facility] [place] [address] [facility] [address] [facility] Bacteria / Raudel Culture, Blood #1 (11/19/2021 12:45 PM CDT) Patholo gist Method Time Signature [...] RDERABLES Performing Organization Address City/[facility] Phon e Number [facility] - [address] [place] [address] Phosphorus Inorganic (11/19/2021 7:13 AM CDT) athologist Signature Phosphorus 2.9 2.5 - 4.5 11/19/2021 DTL (Inorganic), S mg/dL 8:33 AM CDT Specimen Anatomical Collection Method Collection Time Receive d Time (Source) Location / / Volume Laterality Blood (Blood, 11/19/2021 7:13 AM 11/20/19 8:09 Venous) CDT AM CDT Gerard Andino M.D., M.S. LAB BLOOD ADD-ON Performing Organization Address City/[facility]/ZIP Code Phon e Number [facility] - 200 [place], [place] [address] [place] [address] Magnesium (11/19/2021 7:13 AM CDT) P athologist Signature Magnesium, S 1.8 1.7 - 2.3 11/19/2021 DTL mg/dL 8:33 AM CDT Specimen Anatomical Collection Method Collection Time Receive d Time (Source) Location / / Volume Laterality Blood (Blood, 11/19/2021 7:13 AM 11/20/19 22 8:09 Venous) CDT AM CDT Gerard Andino M.D., M.S. LAB BLOOD ADD-ON Performing Organization Address City/State/ZIP Code Phon e Number [facility] - 200 [place], [place] [address] [facility] [place] [address] [facility] 200 [facility] (ABNORMAL) Hepatic Function Panel (11/19/2021 7:13 AM [...] Address City/State/ZIP Code Phon e Number [facility] - [address] [place] [address] [facility] [place] [address] Laboratories[address] (ABNORMAL) Basic Metabolic Panel (11/19/2021 7:13 AM [...] 11/19/2021 DTL Black/ mL/min/BSA 9:20 AM CDT Jamaican Comment: ----ADDITIONAL INFORMATION---- Estimated GFR calculated using [...] Address City/State/ZIP Code Phon e Number [facility] - [address] [place], [place] [address] [facility] [place] [address] [facility] [address] (ABNORMAL) CBC with Differential, Blood (11/19/2021 7:13 AM CDT) [facility] gist Method Time Signature Hemoglobin 7.6 [...] Address City/State/ZIP Code Phon e Number [facility] - 200 [place], [place] [address] [facility] [place] [address] [facility] 200 [facility] US Paracentesis with Imaging Guidance (11/18/2021 4:10 [...] PROCEDURES Gram Stain (11/18/2021 3:29 PM CDT) [facility] Method Time Signature Gram Stain No organisms seen. 11/18/2021 DTL White blood cells present. 10:50 PM CDT Specimen (Source) Anatomical Collection Method Collection Time Re ceived Time Location / / Volume Laterality Peritoneal Fluid 11/18/2021 3:29 11/19/19 22 5:38 PM CDT PM CDT Narrative [facility] - 11/18/2021 10:50 PM CDT Bacterial Culture: Received Bactec aerob ic and Bactec anaerobic bottles Gerard Andino M.D., M.S. LAB MICROBIOLOGY - GENERAL O RDKuapayBLES Performing Organization Address City/[facility] Phon e Number [facility] - [address] [place] [address] 05 [facility] [place] [address] [facility] [address] [facility] Bacterial Culture, Aerobic + Susc (11/18/2021 3:29 PM CDT) [facility] Method Time Signature Bacterial No growth 11/23/2021 DTL Culture, after 5 7:47 AM CDT Aerobic + Susc days of incubation. Specimen (Source) Anatomical Collection Method Collection Time Re ceived Time Location / / Volume Laterality Peritoneal Fluid 11/18/2021 3:29 11/19/19 22 5:38 PM CDT PM CDT Narrative [facility] - 11/23/2021 7:47 AM CDT Bacterial Culture: Received Bactec aerob ic and Bactec anaerobic bottles Gerard Andino M.D., M.S. LAB MICROBIOLOGY - GENERAL O RDERABLES Performing Organization Address City/[facility]/ZIP Code Phon e Number [facility] - [address] [place], [place] [address] [facility] [place] [address] [facility] [address] [facility] Cell Count and Differential, Body Fluid (11/18/2021 3:29 PM CDT) [facility] Method Time Signature Fluid Type [...] Its performance characteri stics were determined by [facility] in a manner co nsistent with [...] DHPM malignant cells CDT seen. Reviewed by: Tech 11/19/2021 8:23 AM DHPM CDT Specimen Anatomical Collection Method Collection Time Receive d Time (Source) Location / / Volume Laterality Fluid 11/18/2021 3:29 PM 4:30 (Peritoneal CDT PM CDT Fluid) Gerard Andino M.D., M.S. LAB BODY FLUIDS AND STOOLS O RDERABLES Performing Organization Address City/State/ZIP Code Phon e Number [facility] - [address] [place], [place] [address] [facility] [place] [address] Laboratories-[address] Phosphorus Inorganic (11/18/2021 8:56 AM CDT) P athologist Signature Phosphorus 2.7 2.5 - 4.5 11/18/2021 DTL (Inorganic), S mg/dL 10:11 AM CDT Specimen Anatomical Collection Method Collection Time Receive d Time (Source) Location / / Volume Laterality Blood (Blood, 11/18/2021 8:56 AM 11/19/19 22 9:52 Venous) CDT AM CDT Shannan Rand M.D. LAB BLOOD ADD-ON Performing Organization Address City/[facility] Phon e Number [facility] - [address] [place], [place] [phone] [place] [address] Magnesium (11/18/2021 8:56 AM CDT) P athologist Signature Magnesium, S 2.1 1.7 - 2.3 11/18/2021 DTL mg/dL 10:11 AM CDT Specimen Anatomical Collection Method Collection Time Receive d Time (Source) Location / / Volume Laterality Blood (Blood, 11/18/2021 8:56 AM 11/19/19 22 9:52 Venous) CDT AM CDT Shannan Rand M.D. LAB BLOOD ADD-ON Performing Organization Address City/[facility] Phon e Number [facility] - 200 [place], [place] [address] [place], [place] [id number] [place] [address] (ABNORMAL) Comprehensive Metabolic Panel (11/18/2021 8:56 AM [...] 11/18/2021 DTL Black/ mL/min/BSA 12:18 PM CDT Jamaican Comment: ----ADDITIONAL INFORMATION---- Estimated GFR calculated using [...] Address City/State/ZIP Code Phon e Number [facility] - [address] [place], [place] [address] [facility] [place] [address] [facility] [address] [facility] (ABNORMAL) CBC with Differential, Blood (11/18/2021 8:56 AM CDT) [facility] Method Time Signature Hemoglobin 9.7 [...] Laterality Blood (Blood, 11/18/2021 8:56 AM 11/19/19 9:38 Venous) CDT AM CDT Shannan Rand M.D. LAB BLOOD ADD-ON Performing Organization Address City/State/ZIP Code Phon e Number [facility] - [address] [place], [place] [address] [facility] [place] [address] [facility] [address] EEG prolonged [...] Rodriguez M.D. NEUROLOGY ORDERABLES Performing Organization Address City/[facility]/ZIP Code Phon e Number MMODAL MMODAL NA [...] in the stomach. IUD. Harish Schulz M.D. IMG DIAGNOSTIC IMAGING PROCE [place] (ABNORMAL) Comprehensive Metabolic [...] 11/16/2021 DTL Black/ mL/min/BSA 10:20 AM CDT Jamaican Comment: ----ADDITIONAL INFORMATION---- Estimated GFR calculated using [...] Blood (Blood, 11/16/2021 7:11 AM 11/17/19 22 7:55 Venous) CDT AM CDT Dina Campa M.D. LAB BLOOD ADD-ON Performing Organization Address City/State/ZIP Code Phon e Number [facility] - [address] [place], [place] [address] [facility] [place] [address] [facility] [address] [facility] (ABNORMAL) CBC with Differential, Blood (11/16/2021 7:11 AM CDT) [facility] Method Time Signature Hemoglobin 7.7 [...] Laterality Blood (Blood, 11/16/2021 7:11 AM 11/17/19 7:33 Venous) CDT AM CDT Dina Campa M.D. LAB BLOOD ADD-ON Performing Organization Address City/State/ZIP Code Phon e Number [facility] - [address] [place], [place] [address] [facility] [place] [address] [facility] [address] MR Brain without IV Contrast (11/15/2021 1:07 [...] Drug Screen Urine (11/15/2021 11:15 AM CDT) Patholo gist Method Time Signature Ethanol, Negative NEGATIVE 11/15/2021 [...] ORDERABLES Performing Organization Address City/[facility] Phon e Number [facility] - [address] [place] [address] [place] [address] (ABNORMAL) Ammonia (11/15/2021 6:14 AM CDT) P athologist Signature Ammonia, P 31 (H) <=30 11/15/2021 DTL mcmol/L 7:00 AM CDT Specimen Anatomical Collection Method Collection Time Receive d Time (Source) Location / / Volume Laterality Blood (Blood, 11/15/2021 6:14 AM 11/16/19 6:36 Venous) CDT AM CDT Gerard Andino M.D., M.S. LAB BLOOD NON ADD-ON Performing Organization Address City/State/ZIP [facility] Phon e Number [facility] - [address] [place], [place] [address] 05 [place] [address] [place] [address] Phosphorus Inorganic (11/15/2021 6:14 AM CDT) P athologist Signature Phosphorus 2.5 2.5 - 4.5 11/15/2021 DTL (Inorganic), S mg/dL 7:16 AM CDT Specimen Anatomical Collection Method Collection Time Receive d Time (Source) Location / / Volume Laterality Blood (Blood, 11/15/2021 6:14 AM 11/16/19 7:02 Venous) CDT AM CDT Gerard Andino M.D., M.S. LAB BLOOD ADD-ON Performing Organization Address City/[facility] Phon e Number [facility] - 200 [place], [place] [address] [place] [address] [address] Magnesium (11/15/2021 6:14 AM CDT) athologist Signature Magnesium, S 2.1 1.7 - 2.3 11/15/2021 DTL mg/dL 7:16 AM CDT Specimen Anatomical Collection Method Collection Time Receive d Time (Source) Location / / Volume Laterality Blood (Blood, 11/15/2021 6:14 AM 11/16/19 22 7:02 Venous) CDT AM CDT Gerard Andino M.D., M.S. LAB BLOOD ADD-ON Performing Organization Address City/[facility] Phon e Number [facility] - [address] [place], [place] [address] 05 [place], [place] [phone] [place] [address] (ABNORMAL) Hepatic Function Panel (11/15/2021 6:14 AM [...] Address City/State/ZIP Code Phon e Number [facility] - [address] [place], [place] [address] [facility] [place] [address] [facility] [address] [facility] (ABNORMAL) Basic Metabolic Panel (11/15/2021 6:14 AM [...] 11/15/2021 DTL Black/ mL/min/BSA 10:03 AM CDT Jamaican Comment: ----ADDITIONAL INFORMATION---- Estimated GFR calculated using [...] M.S. LAB BLOOD ADD-ON Performing Organization Address City/State/[facility] Code Phon e Number [facility] - [address] [place] [address] 05 [facility] [place] [address] [facility] [address] [facility] (ABNORMAL) CBC without Differential (11/15/2021 6:14 AM CDT) [facility] gist Method Time Signature Hemoglobin 7.8 (L) [...] ADD-ON Performing Organization Address City/[facility] Phon e Number [facility] - [address] [place], [place] [address] [place] [address] [facility] Phosphorus Inorganic (11/14/2021 9:00 PM CDT) athologist Signature Phosphorus 2.6 2.5 - 4.5 11/14/2021 DTL (Inorganic), S mg/dL 10:55 PM CDT Specimen Anatomical Collection Method Collection Time Receive d Time (Source) Location / / Volume Laterality Blood (Blood, 11/14/2021 9:00 PM 11/15/19 9:46 Venous) CDT PM CDT Gerard Andino M.D., M.S. LAB BLOOD ADD-ON Performing Organization Address City/[facility]/ZIP Code Phon e Number [facility] - [address] [place] [phone] [place] [address] [address] [facility] Magnesium (11/14/2021 9:00 PM CDT) athologist Signature Magnesium, S 1.8 1.7 - 2.3 11/14/2021 DTL mg/dL 10:55 PM CDT Specimen Anatomical Collection Method Collection Time Receive d Time (Source) Location / / Volume Laterality Blood (Blood, 11/14/2021 9:00 PM 11/15/19 9:46 Venous) CDT PM CDT Gerard Andino M.D., M.S. LAB BLOOD ADD-ON Performing Organization Address City/State/ZIP [facility] Phon e Number [facility] - [address] [place] [address] [address] [facility] Potassium (11/14/2021 9:00 PM CDT) athologist Signature Potassium, S 4.1 3.6 - 5.2 11/14/2021 DTL mmol/L 10:55 PM CDT Specimen Anatomical Collection Method Collection Time Receive d Time (Source) Location / / Volume Laterality Blood (Blood, 11/14/2021 9:00 PM 11/15/19 9:46 Venous) CDT PM CDT Gerard Andino M.D., M.S. LAB BLOOD ADD-ON Performing Organization Address City/[facility] Phon e Number [facility] - [address] [place] [phone] [place] [address] (ABNORMAL) Hepatic Function Panel (11/14/2021 6:56 AM CDT) [facility] Method Time Signature Bilirubin, Total, S 19.2 [...] M.S. LAB BLOOD ADD-ON Performing Organization Address City/State/[facility] Phon e Number [facility] - [address] [place], [place] [address] 05 [facility] [place], [place] [phone] [place] [address] (ABNORMAL) Basic Metabolic Panel (11/14/2021 6:56 AM [...] 11/14/2021 DTL Black/ mL/min/BSA 9:14 AM CDT Jamaican Comment: ----ADDITIONAL INFORMATION---- Estimated GFR calculated using [...] Address City/State/ZIP Code Phon e Number [facility] - [address] [place], [place] [address] [facility] [place] [address] [facility] [address] [facility] (ABNORMAL) CBC without Differential (11/14/2021 6:56 AM CDT) [facility] Method Time Signature Hemoglobin 9.1 (L) 11.6 [...] Laterality Blood (Blood, 11/14/2021 6:56 AM 11/15/19 7:19 Venous) CDT AM CDT Gerard Andino M.D., M.S. LAB BLOOD ADD-ON Performing Organization Address City/State/ZIP Code Phon e Number [facility] - [address] [place] [address] 05 [facility] [place] [address] [address] SARS Coronavirus 2, Antigen, Rapid, V Asymptomatic (11/13/2021 9:45 AM CDT) [facility] [employer] Method Time Signature SARS CoV-2, Undetected Undetected [...] us ing the SARS-CoV-2 Ag Test from [employer], which has received Emergency U se Authorization (EUA) by the U.S. Food and Drug Administration. Fact sheets for this Emergency Use Autho rization (EUA) assay can be found at the following links: For Healthcare Providers: https://www.[employer]/assets/images/n ew/pdf/uyt-wse-imym-xijui-fvlquzxc-w rev-yzt-7-ag-test.pdf?v=4 For Patients: https://www.[employer]/assets/images/n ew/pdf/mwx-wgdcwkn-uqng-sheet-lumira tw-qjpk-moj-7-wvcihjx-cofs.pdf?v=5 SARS CoV-2, Antigen, Rapid, Swab, Nasopharynx 10/31 9:54 AM CDT [facility] [[email or web address] Source Specimen Anatomical Collection Method Collection Time Receive d Time (Source) Location / / Volume Laterality Varies 11/13/2021 9:45 AM 9:54 (Nasopharynx) CDT AM CDT Gerard Andino M.D., M.S. LAB MICROBIOLOGY - GENERAL O RDERABLES Performing Organization Address City/State/[facility] Code Phon e Number [facility] - [address] [place] [address] 05 [place] [address] [facility] [address] [facility] (ABNORMAL) Hepatic Function Panel (11/13/2021 6:19 AM CDT) [facility] Method Time Signature Bilirubin, Total, S 16.8 [...] M.S. LAB BLOOD ADD-ON Performing Organization Address City/State/[facility] Code Phon e Number [facility] - 200 [place], [place] [address] [facility] [place] [address] [facility] [address] [facility] (ABNORMAL) Basic Metabolic Panel (11/13/2021 6:19 AM [...] 11/13/2021 DTL Black/ mL/min/BSA 9:23 AM CDT Jamaican Comment: ----ADDITIONAL INFORMATION---- Estimated GFR calculated using [...] M.S. LAB BLOOD ADD-ON Performing Organization Address City/State/[facility] Code Phon e Number [facility] - [address] [place] [address] 05 [facility] [place] [address] [facility] [address] [facility] (ABNORMAL) CBC without Differential (11/13/2021 6:19 AM CDT) [facility] gist Method Time Signature Hemoglobin 7.9 [...] Address City/State/ZIP Code Phon e Number [facility] - [address] [place], [place] [address] [facility] [place] [address] [facility] [address] DX Abdomen Portable [...] HEAD WITHOUT IV CONTRAST COMPARISON: Compared to [facility] head CT fro m 03/21/2021. FINDINGS: Beam [...] HEAD WITHOUT IV CONTRAST COMPARISON: Compared to [facility] head CT fro m 03/21/2021. FINDINGS: Beam [...] Rapid, V Symptomatic (11/12/2021 3:44 AM CDT) [facility] Method Time Signature SARS CoV-2, Detected (A) Undetected 11/12/2021 [facility] PCR, Rapid, V 4:20 AM CDT Comment: ----ADDITIONAL INFORMATION---- This RT-PCR test was performed using the Daniel SARS-CoV-2 and Influenza A/B Reagent assay from [employer], which has received Emergency Use Authori zation(EUA) by the U.S. Food and Drug Administration . Fact sheets for this Emergency Use Autho rization (EUA) assay can be found at the following link s: For Healthcare Providers: https://www.fda.gov/media/549191/downloa d For Patients: https://www.fda.gov/media/268012/downloa d SARS Coronavirus 2, Source, Rapid Swab, Nasopharynx 11/12/2021 3:48 AM CDT [facility] [[email or web address] Specimen Anatomical Collection Method Collection Time Receive d Time (Source) Location / / Volume Laterality Varies 11/12/2021 3:44 AM 3:48 (Nasopharynx) CDT AM CDT Rosaura Sevilla M.D., M.P.H. LAB MICROBIOLOGY - GENERA L ORDERABLES Performing Organization Address City/[facility] Code Phon e Number [facility] - [address] Drug Screen Urine (11/12/2021 3:19 AM CDT) [facility] Method Time Signature Ethanol, Negative [...] Laterality Urine (Urine, 11/12/2021 3:19 AM 11/13/19 22 4:14 Midstream) CDT AM CDT Titi Oswald M.D. LAB URINE ORDERABLES Performing Organization Address City/[facility]/ZIP Code Phon e Number [facility] - 200 [place] [address] 05 [facility] [place] [address] Peripheral Venous Access (11/12/2021 1:58 AM [...] Rosaura Sevilla M.D., M.P.H. IV THERAPY ORDERABLES (ABNORMAL) Prothrombin Time (PT) (11/12/2021 1:54 AM CDT) [facility] Method Time Signature Prothrombin 37.4 (H) 9.4 [...] [facility]/ZIP Code Phon e Number [facility] - [address] [place], [place] [address] [facility] [place] [address] (ABNORMAL) APTT (Activated Partial Thromboplastin Time) (11/12/2021 1:54 AM CDT) P athologist Signature Activated 42 (H) 25 - 37 11/12/2021 [facility] [[email or web address] Partial sec 2:16 AM CDT Thrombopl Time, P Specimen Anatomical Collection Method Collection Time Receive d Time (Source) Location / / Volume Laterality Blood (Blood, 11/12/2021 1:54 AM 11/13/19 1:59 Venous) CDT AM CDT Titi Oswald M.D. LAB BLOOD ADD-ON Performing Organization Address City/[facility]/ZIP Code Phon e Number [facility] - [address] [place], [place] [address] [facility] [place] [address] Ethanol Level, Serum (11/12/2021 1:54 AM CDT) P athologist Signature Ethanol, S <10 <10 mg/dL 11/12/2021 3:15 DTL AM CDT Specimen Anatomical Collection Method Collection Time Receive d Time (Source) Location / / Volume Laterality Blood (Blood, 11/12/2021 1:54 AM 11/13/19 2:40 Venous) CDT AM CDT Authorizing Provider Result Woodrow Oswald M.D. LAB BLOOD NON ADD-ON Performing Organization Address City/State/ZIP Code Phon e Number [facility] - [address] [place], [place] [address] [facility] [place] [address] [place] [address] [address] [facility] S-TSH (Thyroid-Stimulating Hormone - Sensitive) (11/12/2021 1:54 AM CDT) athologist Signature TSH, Sensitive 3.3 0.3 - 4.2 11/12/2021 DTL mIU/L 3:15 AM CDT Specimen Anatomical Collection Method Collection Time Receive d Time (Source) Location / / Volume Laterality Blood (Blood, 11/12/2021 1:54 AM 11/13/19 2:40 Venous) CDT AM CDT Authorizing Provider Result Woodrow Oswald M.D. LAB BLOOD ADD-ON Performing Organization Address City/State/ZIP Code Phon e Number [facility] - [address] [place], [place] [address] [facility] [place] [address] [facility] [address] (ABNORMAL) Basic Metabolic Panel (11/12/2021 1:54 [...] CDT eGFR-Black/Afri >90 >=60 11/12/2021 DTL can Jamaican mL/min/BSA 3:01 AM CDT Comment: ----ADDITIONAL INFORMATION---- [...] Address City/State/ZIP Code Phon e Number [facility] - [address] [place], [place] [address] [facility] [address] [facility] [address] [place] [address] [facility] [address] (ABNORMAL) Hepatic Function Panel (11/12/2021 1:54 AM CDT) [facility] Method Time Signature Bilirubin, Total, S 18.0 [...] ADD-ON Performing Organization Address City/[facility] Phon e Number [facility] - [address] [place], [place] [address] [facility] [place] [address] hCG (Human Chorionic Gonadotropin), Quantitative, (11/12/2021 1:54 AM CDT) P athologist Signature HCG, 0.5 <5 IU/L 11/12/2021 ST[facility] Quantitative, 2:17 AM CDT , P Specimen Anatomical Collection Method Collection Time Receive d Time (Source) Location / / Volume Laterality Blood (Blood, 11/12/2021 1:54 AM 11/13/19 1:59 Venous) CDT AM CDT Authorizing Provider Result Woodrow Oswald M.D. LAB BLOOD ADD-ON Performing Organization Address [facility] Phon e Number [facility] - [address] [place] [address] 05 [facility] [place] [address] (ABNORMAL) CBC with Differential, Blood (11/12/2021 1:54 AM CDT) [facility] Method Time Signature Hemoglobin 8.7 (L) [...] M.D. LAB BLOOD ADD-ON Performing Organization Address City/State/[facility] Phon e Number [facility] - [address] [place], [place] [address] 05 [facility] [place] [address] [facility] [address] [place] [address] [facility] [address] (ABNORMAL) Ammonia (11/12/2021 1:54 AM CDT) P athologist Signature Ammonia, P 38 (H) <=30 11/12/2021 DTL mcmol/L 2:52 AM CDT Specimen Anatomical Collection Method Collection Time Receive d Time (Source) Location / / Volume Laterality Blood (Blood, 11/12/2021 1:54 AM 11/13/19 2:09 Venous) CDT AM CDT Authorizing Provider Result Woodrow Oswald M.D. LAB BLOOD NON ADD-ON Performing Organization Address City/State/[facility] Code Phon e Number [facility] - [address] [place], [place] [address] [facility] [place] [address] [facility] [address] Lactate, POCT (11/12/2021 1:54 AM CDT) [...] Address City/State/ZIP Code Phon e Number [facility] - [address] [place], [place] [address] [facility] [place] [address] [facility] [address] [facility] Venous Blood Gas and Electrolytes, POCT (11/12/2021 [...] POCT ORDERABLES - DEVICE Performing Organization Address City/[facility]/ZIP Code Phon e Number [facility] - [address] [place], [place] [address] [facility] [place] [address] [facility] [address] [facility] Lactate, POCT (11/12/2021 1:52 AM CDT) P athologist Signature Lactate, POCT 2.19 0.50 - 11/12/2021 PCLX 2.20 2:04 AM CDT mmol/L Sample Site, Venstick 11/12/2021 PCLX POCT 2:04 AM CDT Specimen Anatomical Collection Method Collection Time Receive d Time (Source) Location / / Volume Laterality Blood 11/12/2021 1:52 AM 2:04 CDT AM CDT Unknown Provider LAB POCT ORDERABLES - DEVICE Performing Organization Address City/State/ZIP Code Phon e Number POC [facility] [address] [place] [address] PCLX [facility] [place] [address] [place] POC [address] [facility] (ABNORMAL) Venous Blood Gas and Electrolytes CG8+, POCT (11/12/2021 1:51 AM CDT) P athologist Signature Sample Site, Venstick 11/12/2021 PCSM [...] POCT ORDERABLES - DEVICE Performing Organization Address City/[facility] Code Phon e Number POC [facility] [address] [place], [place] [address] LABS PCSM [facility] [place] [address] [place] [facility] [address] (ABNORMAL) CRP (C-Reactive Protein) (11/11/2021 4:28 AM CDT) P athologist Signature C-Reactive 9.4 (H) <=8.0 mg/L 11/12/2021 DTL Protein (CRP), 7:43 AM CDT S Specimen Anatomical Collection Method Collection Time Receive d Time (Source) Location / / Volume Laterality Blood (Blood, 11/11/2021 4:28 AM 11/13/19 22 7:26 Venous) CDT AM CDT Gerard Andino M.D., M.S. 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 ) Ascites Anemia Thrombocytopenia (HCC) Delirium Cirrhosis Alcoholic (HCC) Hypertension Portal (HCC) documented [...] 12.5 g 12.5 g, intravenous, Once, On Wed11/22/21 at 0830, For 1 dose, If no [...] last modification) on Wed11/13/21 at 0900 Given 11/22/2021 8:44 AM CDT [...] last modification) on Wed11/13/21 at 0900 Given 11/22/2021 8:44 AM CDT [...] Every 8 hours scheduled, First dose on 11/15/21 at 1400 Given 11/17/2021 1:01 PM CDT [...] mL/hr, Administer over 1 Hours, Once, On 11/22/21 at 0830, For 1 dose lactated Ringer's bolus 250 Bolus from Bag 11/22/2021 3:55 PM CDT 2 50 mL 250 mL/hr mL 250 mL, intravenous, at 250 mL/hr, Administer over 1 Hours, Once, On Sat 23/22 at 1445, For 1 dose lactated Ringer's [...] tube, Daily before breakfast, First dose on Luz Marina 11/13/21 at 0700 Given 11/22/2021 6:05 AM CDT [...] at 0900, 1. Don PPE according to MAR and Epic label. 2. If MCT oil [...] sodium 1 % gel 2 g (VOLTAREN) 0033 (Given - Provider: Jo Ann Stevens RSumaNSuma) 0959 (Given - Provider: Deja Langford RSumaNSuma)1324 (Not Given - Provider: Deja Langford RGabby - Reason: Other) 2 g, topical, 4 [...] mg 1014 (Given - Provider: [place] vela RSumaN.) 0811 (Given - Provider: Deja Langford R.N.) 0924 (Given - Provider: Deja Langford R.N.) 1 mg, oral, Daily, First dose (after last modification) on 11/24/21 at 1015 furosemide tablet 40 mg (LASIX) 1015 (Given - Provider: Aye Toribio RSumaN.) 0811 (Given - Provider: Deja Langford R.N.) 0924 (Given - Provider: Deja Langford R.N.) 40 mg, oral, Daily, First dose (after last modificatio n) on Wed11/24/21 at 1015 heparin (porcine) injection 5,000 Units 0531 (Not Give n - Provider: Heather Andrea RSumaN. - Reason: Patient/family refused)1503 (Given - Provider: [place] Toribio R.N.)2245 (Not Given - Provider: Jo Ann tSevens R.N. - Reason: Patient/family refused) 0549 (Given - Provider: Jo Ann hanley, R.N.)1302 (Given - Provider: Deja Langford R.N.)2123 (Given - Provider: Amy Zaragoza R.N.) 0609 (Given - Provider: Jo Ann hanley, R.N.) 5,000 Units, subcutaneous, Every 8 hours scheduled, First dose on Wed11/18/21 at 2200 HYDROmorphone (PF) injection 0.2 mg (DILAUDID) (COMPLETED) 0549 (Given - Provider: Jo Ann Stevens R.N.) 0.2 mg, intravenous, Once, On Wed11/25/21 at 0545, For 1 dose HYDROmorphone tablet 1 mg (DILAUDID) (COMPLETED) 0811 (Given - Provider: Deja Langford, R.N.) 1 mg, oral, Once, On Wed11/25/21 at 0800, For 1 dose lactulose solution 10 g (CHRONULAC) (CANCELED) 1013 (G iven - Provider: [place] Toribio R.N.) 10 g, gastric tube, 3 times daily, First dose (after last modification) on Wed11/18/21 at 2100 lactulose solution 10 g (CHRONULAC) 1506 (Not Given - Provider: [place] Toribio REric. - Reason: Other - Comment: 6 bm's)2037 (Not Given - Provider: Jo Ann Stevens R.N. - Reason: Contraindicated) 0812 (Not Given - Provider: Deja Langford, R.N. - Reason: Contraindicated - Comment: bm goal met)1302 (Given - Provider: Deja Langford R.N.)2123 (Given - Provider: Amy Zaragoza RSumaNSuma) 0924 (Given - Provider: Deja Langford, R.N.) 10 g, oral, 3 times daily, First dose (a fter last modification) on Wed11/24/21 at 1400 lidocaine 5 % 1 patch (LIDODERM) 2358 (M edication Applied - Provider: Jo Ann Stevens R.N.) 1157 (Medication Removed - Provider: Anat Langford, R.NSuma) 1 patch, transdermal, Administer over 12 Hours, Daily at bedtime, First dose on Wed11/25/21 at 2330, Remove after 12 hours. multivitamin/mineral- tablet 1 tablet 1016 (Gi ekaterina - Provider: [place] Toribio R.N.) 0811 (Given - Provider: Deja Langford R.N.) 0924 (G iven - Provider: Deja Langford R.NSuma) 1 tablet, oral, Daily, First dose (after last modification) on Wed11/24/[address] tablet 40 mg (PROTONIX) 0550 (Not Given - Provider: Jo Ann Stevens R.N. - Reason: Other) 0609 (Given - Provider: Jo Ann hanley, R.N.) 40 mg, oral, Daily before breakfast, Fir st dose on Wed11/25/21 at 0700, Swallow whole. Do NOT crush, chew, or split tablet. rifAXIMin tablet 550 mg (XIFAXAN) 1020 (Given - Provid er: [place] Toribio RSumaN.)2037 (Given - Provider: Jo Ann Stevens R.N.) 0811 (Given - Provider: Deja Langford, R.N.)2122 (Given - Provider: Amy Zaragoza R.N.) 0924 (Given - Provider: Deja Langford, R.N.) 550 mg, oral, 2 times daily, First dose on Wed11/24/21 at 1015, Indications: encephalopathy sodium chloride (PF) 0.9 % injection 1-100 mL (COMPLETED) 1021 (Given - Provider: Perri Mcintyre R.NSuma) 1-100 mL, intravenous, Once, On 11/25 at 1030, For 1 dose, Imaging Protocol Orders spironolactone tablet 100 mg (ALDACTONE) 1201 (Given - Provider: [place] Toribio REric.) 0811 (Not Given - Provider: Deja son, R.N. - Reason: See Provider Order - Comment: held per provider due to hypotension) 0924 (Given - Provider: Deja Langford, R.N.) 100 mg, oral, Daily, First dose (after l ast modification) on Wed11/24/21 at 1115 thiamine tablet 100 mg (VITAMIN B1) 1016 (Given - Prov ider: [place] Toribio, R.N.) 0811 (Given - Provider: Deja Langford, R.N.) 0924 (G iven - Provider: Deja Langford, R.N.) 100 mg, oral, Daily, First dose (after l ast modification) on Wed11/24/21 at 1015 vitamin A capsule 3,000 mcg 1201 (Given - Provider: [place] trujillo, R.N.) 0950 (Given - Provider: Deja Langford, R.N.) 3,000 mcg, oral, 3 times weekly (Once pe r day on Wed), First dose on Wed11/24/21 at 1115, For 28 doses, Vitamin A (retinol): Units x 0.3 = mcg; 10,000 Units = 3,000 mcg Vitamin A (Supplemental B eta-carotene): Units x 0.3 = mcg Vitamin A (Dietary Beta-carotene): Units x 0.05 = mcg zinc sulfate capsule 220 mg (ZINCATE) 1014 (Given - Pr ovider: [place] Toribio RSumaNSuma) 0811 (Given - Provider: Deja Langford RSumaNSuma) 0924 (Tristan parkeren - Provider: Deja Langford RSumaNSuma) 220 mg, oral, Daily with breakfast, Firs t dose (after last modification) on Wed11/24/21 at 1015, For 15 doses, Doses listed in zinc sulfate. Each 220 mg of zinc sulfate contains 50 mg of elemental zinc. PRN Medication Order 11/24/2021 11/25/2021 11/26/2021 iohexoL 350 mg iodine/mL solution 1-200 mL (OMNIPAQUE) (COMP LETED) 1022 (Given - Provider: Perri Mcintyre RSumaNSuma) 1-200 mL, intravenous, Once in imaging, contrast, [...] 0020 (Given - Provider: St nataliia Stevens RSumaNSuma) 5 mg, oral, Bedtime PRN, sleep, Starting on Wed11/25/21 at 0012 ondansetron (PF) injection 4 mg (ZOFRAN) 4 mg, intravenous, Every 6 hours PRN, na usea, vomiting, Starting on 11/16/21 at 0928 ondansetron ODT disintegrating tablet 4 mg (ZOFRAN-ODT) 4 mg, oral, Every 8 hours PRN, nausea, v omiting, Starting on Wed11/26/21 at 0448, When splitting ODT at bedside, handle with gloves and a pill splitter to prevent moisture contact. simethicone chewable tablet 80 mg (MYLICON) 9916 (Given - Provider: Jo Ann Stevens R.N.) 80 mg, oral, 4 times daily PRN, flatulence, Starting on 11/25 at 2316 documented in this encounter Additional Health Concerns Infection Onset Date Last Indicated Resolved Time COVID19 Pending 11/12/2021 11/12/2021 11/12/2021 4:20 AM CDT [id number]: Patients who are NOT sev erely immunocompromised: Asymptomatic - At least 10 days have passed since the date of the first positive PCR test 11/12/2021 11/12/2021 11/13/2021 3:19 PM CDT and Patient has remained asymptomatic throughout their infection Assessment Noted Time PHQ-9 Depression Total Score: 10 10/06/2021 5:00 PM CD T documented as of this encounter Care Teams Golf Ball Trimmer Relationship Specialty Start Date End Date Elsewhere, Pcp PCP - General Family Medicine 03/10/20 11/30/21 [facility] [place] [facility] 08/25/21 Ervin Schroeder MD Referring Provider Family Medicine 03/24/[address] [place] [phone] documented as of this encounter
--- OUTSIDE RECORDS SUMMARY | 2022-01-31 04:27 | XMS_ITS | Encounter Summary ---
:1990 Author Organization [facility] Address [address] [place] [address] Care Team Providers Name Role Phone Elsewhere, Pcp Primary Care Provider Unavailable Reason for Visit Reason Comments Vitamin K Encounter Details Date Type Department Care Team Description 10/31/2021 Clinical Communication [facility] PRE/POS T Alina Carranza, Vitamin K [address] [place] [address] [phone] Social History Tobacco Use Types Packs/Day Years [...] do you attend orthodoxy or Never 2021 church services? 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 - 10/31/2021 4:22 PM CDT This marketing writer contacted [facility] in [facility], spoke to Perri. Prescription for Vitamin K was received and has not been entered. Perri stated prescription will be ready and patient will be notified by pharmacy via notification system. This marketing writer sent patient a message via portal. [...] Community Internal Neda, Olinda Medicine Vernell Perez [address] [place] [address] [phone] Appointment Radiology [facility] 2 YElizabeth.B.B.SSuma, MJules [address] [place] [phone] Hospital Gastroenterology and [facility] 2 Encounter Hepatology Vik RodriguezBGraeme, Lilian [address] [place] [phone] Surgery Gastroenterology and [facility] ESOPHAG OGASTRODUODENOSCOPY 2 Hepatology YJoshuaB.B.Kath, MJules [address] [place] [phone] Telemedicine Transplant 2 Lab Laboratory Medicine Karin, Olinda Gannon M.D., Ph.D. [address] [place] [phone] Lab Laboratory Medicine Olinda Frazier M.D., Ph.D. [address] [place] [phone] Office Visit Transplant Olinda Frazier M.D., Ph.D. [address] [place] [phone] Appointment Radiology LuisNew abdular 2 Y MSumaB.B.SSuma, Lilian [address] [place] [phone] Appointment Gastroenterology and Adrianne, 2 Hepatology Yue Burciaga M.D. [address] [place] [phone] Office Visit Gastroenterology and QueenieNewar 2 Hepatology Joshua RodriguezB.B.SLilian Moise [address] [place] [phone] Appointment Radiology LuisNew abdular 2 YElizabeth.B.B.SLilian Moise [address] [place] [phone] Scheduled Procedures Name Priority Associated Diagnoses Date/Time ESOPHAGOGASTRODUODENOSCOPY Cirrhosis Alc oholic (HCC) 02/10/2022 8:45 AM CDT Hypertension Portal (HCC) documented as of this encounter Visit Diagnoses Not on filedocumented in this encounter Additional Health Concerns Assessment Noted Time PHQ-9 Depression Total Score: 10 10/06/2021 5:00 PM CD T documented as of this encounter Care Teams Cardiac Cath Technician Relationship Specialty Start Date End Date Elsewhere, Pcp PCP - General Family Medicine 03/10/20 11/30/21 [facility] [place] lab 08/25/21 Ervin Schroeder MD Referring Provider Family Medicine 03/24/[address] [place] [phone] documented as of this encounter
--- OUTSIDE RECORDS SUMMARY | 2022-01-31 04:27 | XMS_ITS | Encounter Summary ---
:1990 Author Organization [facility] Address [address] [place] [address] Care Team Providers Name Role Phone Elsewhere, Pcp Primary Care Provider Unavailable Encounter Details Date Type Department Care Team Description 11/04/2021 Clinical Communication Department of Symone Beebe Gastroenterology in , R.[address] [place] [phone] Social History Tobacco Use Types Packs/Day Years [...] do you attend yarsani or Never 2021 evangelical services? 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 Miscellaneous [...] Care Team Description Office Visit [facility], 2 Medicine Vernell Perez [address] [place] [phone] Appointment Radiology Matthew Jerome 2 Y M.B.B.SSuma, Lilian [address] [place] [phone] Hospital Gastroenterology and Matthew Jerome 2 Encounter Hepatology Jennifer MSumaB.B.SSuma, Lilian [address] [place] [phone] Surgery Gastroenterology and Matthew Jerome ESOPHAG OGASTRODUODENOSCOPY 2 Hepatology Elizabeth Rodriguez.B.B.SSuma, Lilian [address] [place] [phone] Telemedicine Transplant 2 Lab Laboratory Medicine Karin, Olinda Gannon M.D., Ph.D. [address] [place] [phone] Lab Laboratory Medicine Karin, Olinda Gannon M.D., Ph.D. [address] [place] [phone] Office Visit Transplant Karin, Olinda Gannon M.D., Ph.D. [address] [place] [phone] Appointment Radiology Matthew Jerome 2 Y, M.B.B.SSuma, Lilian [address] [place] [phone] Appointment Gastroenterology and Adrianne 2 Hepatology Yue Burciaga M.D. [address] [place] [phone] Office Visit Gastroenterology and Matthew Jerome 2 Hepatology Tyrell Rodriguez, Lilian [address] [place] [phone] Appointment Radiology Luischantell Matthew 2 Tyrell Rodriguez, Lilian [address] [place] [phone] Scheduled Procedures Name Priority Associated Diagnoses Date/Time ESOPHAGOGASTRODUODENOSCOPY Cirrhosis Alc oholic (HCC) 02/10/2022 8:45 AM CDT Hypertension Portal (HCC) documented as of this encounter Visit Diagnoses Not on filedocumented in this encounter Additional Health Concerns Assessment Noted Time PHQ-9 Depression Total Score: 10 10/06/2021 5:00 PM CD T documented as of this encounter Care Teams Telemetry Nurse Relationship Specialty Start Date End Date Elsewhere, Pcp PCP - General Family Medicine 03/10/20 11/30/21 [facility] [place] lab 08/25/21 Ervin Schroeder MD Referring Provider Family Medicine 03/24/[address] [place] [phone] documented as of this encounter
--- OUTSIDE RECORDS SUMMARY | 2022-01-31 04:27 | XMS_ITS | Encounter Summary ---
:1990 Author Organization [facility] Address [address] [place] [address] Care Team Providers Name Role Phone Elsewhere, Pcp Primary Care Provider Unavailable Encounter Details Date Type Department Care Team Description 11/10/2021 Episode Changes [facility] Jack French for Transplantation and Chano RGabby, Clinical Regeneration in [facility] [place], [place] [phone] [address] [facility] ([place]) [place] [phone] Social History Tobacco Use Types Packs/Day [...] do you attend buddhism or Never 2021 sabianist services? Do you belong to any clubs or No 07/17/2021 organizations such as buddhism groups, unions, fraiCreate or athletic groups, or school groups? 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 encounter Plan of Treatment Upcoming Encounters Date Type Specialty Care Team Description Office Visit Community Internal Neda, 2 Medicine Vernell Perez [address] [place] [phone] Appointment Radiology Matthew Jerome 2 Joshua RodriguezBSumaBGraeme, MJules [address] [place] [phone] Hospital Gastroenterology and Matthew Jerome 2 Encounter Hepatology Vik RodriguezBGraeme, MJules [address] [place] [phone] Surgery Gastroenterology and Queenie Matthew ESOPHAG OGASTRODUODENOSCOPY 2 Hepatology Vik RodriguezBLilian Bedolla [address] [place] [phone] Telemedicine Transplant 2 Lab Laboratory Medicine Karin, 2 Adeline Gannon M.D., Ph.D. [address] [place] [phone] Lab Laboratory Medicine Karin, 2 Adeline Gannon M.D., Ph.D. [address] [place] [phone] Office Visit Transplant Karin, 2 Adeline Gannon M.D., Ph.D. [address] [place] [phone] Appointment Radiology Matthew Jerome 2 YElizabeth.B.B.SSuma, Lilian [address] [place] [phone] Appointment Gastroenterology and Adrianne, 2 Hepatology Yue Burciaga M.D. [address] [place] [phone] Office Visit Gastroenterology and [place] 2 Hepatology Elizabeth Rodriguez.B.B.Lilian Stockton [address] [place] [phone] Appointment Radiology Matthew Jerome 2 Y M.B.B.SLilian Moise [address] [place] [phone] Scheduled Procedures Name Priority Associated Diagnoses Date/Time ESOPHAGOGASTRODUODENOSCOPY Cirrhosis Alc oholic (HCC) 02/10/2022 8:45 AM CDT Hypertension Portal (HCC) documented as of this encounter Visit Diagnoses Not on filedocumented in this encounter Additional Health Concerns Assessment Noted Time PHQ-9 Depression Total Score: 10 10/06/2021 5:00 PM CD T documented as of this encounter Care Teams Sales Development Manager Relationship Specialty Start Date End Date Elsewhere, Pcp PCP - General Family Medicine 03/10/20 11/30/21 [facility] [place] lab 08/25/21 Ervin Schroeder MD Referring Provider Family Medicine 03/24/[address] [place] [phone] documented as of this encounter
--- OUTSIDE RECORDS SUMMARY | 2022-01-31 04:27 | XMS_ITS | Encounter Summary ---
:1990 Author Organization [facility] Address [address] [place] [address] Care Team Providers Name Role Phone Elsewhere, Pcp Primary Care Provider Unavailable Reason for Visit Reason Comments Fatigue Encounter Details Date Type Department Care Team Description 10/17/2021 Nurse Triage Department of Laura Flor, Fatigue Medicine, [facility], R.N. in [facility] [address] [facility] [address] [place] [phone] Social History Tobacco Use Types Packs/Day Years [...] do you attend jewish or Never 2021 zoroastrianism services? Do you belong to any clubs or No 07/17/2021 organizations such as jewish groups, unions, [employer] or athletic groups, or school groups? 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 Call your doctor (or CAKE PULLER/PA) when the office opens and make an [...] 3 days Protocols used: WEAKNESS (GENERALIZED) AND [id number] documented in this encounter Plan of Treatment Upcoming Encounters Date Type Specialty Care Team Description Office Visit [facility], [facility] Internal [facility], Medicine Vernell Perez [address] [place] [phone] Appointment Radiology Matthew Jerome 2 YTyrell, MJules [address] [place] [phone] Hospital Gastroenterology and Mochantell, Matthew 2 Encounter Hepatology Vik RodriguezBLilian Bedolla [address] [place] [phone] Surgery Gastroenterology and Mousa, Matthew ESOPHAG OGASTRODUODENOSCOPY 2 Hepatology Joshua RodriguezBSumaBLilian Bedolla [address] [place] [phone] Telemedicine Transplant 2 Lab Laboratory Medicine Karin, 2 Adeline Gannon M.D., Ph.D. [address] [place] [phone] Lab Laboratory Medicine Karin, 2 Adeline Gannon M.D., Ph.D. [address] [place] [phone] Office Visit Transplant Karin, 2 Adeline Gannon M.D., Ph.D. [address] [place] [phone] Appointment Radiology Matthew Jerome 2 Joshua RodriguezB.B.Lilian Stockton [address] [place] [phone] Appointment Gastroenterology and Adrianne, 2 Hepatology Yue Burciaga M.D. [address] [place] [phone] Office Visit Gastroenterology and Queenie Matthew 2 Hepatology Joshua RodriguezB.B.Lilian Stockton [address] [place] [address] [place] [phone] Appointment Radiology Matthew Jerome 2 YTyrell, Lilian [address] [place] [phone] Scheduled Procedures Name Priority Associated Diagnoses Date/Time ESOPHAGOGASTRODUODENOSCOPY Cirrhosis Alc oholic (HCC) 02/10/2022 8:45 AM CDT Hypertension Portal (HCC) documented as of this encounter Visit Diagnoses Not on filedocumented in this encounter Additional Health Concerns Assessment Noted Time PHQ-9 Depression Total Score: 10 10/06/2021 5:00 PM CD T documented as of this encounter Care Teams Research Investigator Relationship Specialty Start Date End Date Elsewhere, Pcp PCP - General Family Medicine 03/10/20 11/30/21 [facility] [place] [facility] 08/25/21 Ervin Schroeder MD Referring Provider Family Medicine 03/24/[address] [place] [phone] documented as of this encounter
--- OUTSIDE RECORDS SUMMARY | 2022-01-31 04:27 | XMS_ITS | Encounter Summary ---
:1990 Author Organization [facility] Address [address] [place] [address] Care Team Providers Name Role Phone Elsewhere, Pcp Primary Care Provider Unavailable Reason for Visit Reason Comments Covid Positive Encounter Details Date Type Department Care Team Description 11/12/2021 Clinical Department of Matthew Jeromeid Positive Communication Gastroenterology in , [facility] [id number] [place] [address] [place], [place] [phone] Social History Tobacco Use Types Packs/Day [...] do you attend religious or Never 2021 rastafari services? Do you belong to any clubs or No 07/17/2021 organizations such as religious groups, unions, fraSenGenix or athletic groups, or school groups? 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 [facility] [place] guidelines recommend that this appointment be changed to a video visit or postponed until after 11/22/2021 unless medically necessary. Please review and forward to your embedded scheduling team to contact the patient to discuss their options. Thank you documented in this encounter Plan of Treatment Upcoming Encounters Date Type Specialty Care Team Description Office Visit [facility] Internal [facility], 2 Medicine Vernell Perez [address] [place] [phone] Appointment Radiology Matthew Jerome 2 YTyrell, Lilian [address] [place] [phone] Hospital Gastroenterology and Matthew Jerome 2 Encounter Hepatology Tyrell Rodriguez, Lilian [address] [place] [phone] Surgery Gastroenterology and Matthew Jerome ESOPHAG OGASTRODUODENOSCOPY 2 Hepatology Vik RodriguezBGraeme, Lilian [address] [place] [phone] Telemedicine Transplant 2 Lab Laboratory Medicine Olinda Frazier M.D., Ph.D. [address] [place] [phone] Lab Laboratory Medicine Olinda Frazier M.D., Ph.D. [address] [place] [phone] Office Visit Transplant Olinda Frazier M.D., Ph.D. [address] [place] [phone] Appointment Radiology Matthew Jerome 2 YTyrell M.D. [address] [place] [phone] Appointment Gastroenterology and Adrianne 2 Hepatology Yue Burciaga M.D. [address] [place] [phone] Office Visit Gastroenterology and Matthew Jerome 2 Hepatology Tyrell Rodriguez M.D. [address] [place] [phone] Appointment Radiology Matthew Jerome 2 Tyrell Rodriguez M.D. [address] [place] [phone] Scheduled Procedures Name Priority Associated Diagnoses Date/Time ESOPHAGOGASTRODUODENOSCOPY Cirrhosis Alc oholic (HCC) 02/10/2022 8:45 AM CDT Hypertension Portal (HCC) documented as of this encounter Visit Diagnoses Not on filedocumented in this encounter Additional Health Concerns Infection Onset Date Last Indicated Resolved Time COVID19 Pending 11/12/2021 11/12/2021 11/12/2021 4:20 AM CDT [id number]: Patients who are NOT sev erely immunocompromised: Asymptomatic - At least 10 days have passed since the date of the first positive PCR test 11/12/2021 11/12/2021 11/13/2021 3:19 PM CDT and Patient has remained asymptomatic throughout their infection Assessment Noted Time PHQ-9 Depression Total Score: 10 10/06/2021 5:00 PM CD T documented as of this encounter Care Teams Commercial Horticulture Instructor Relationship Specialty Start Date End Date Elsewhere, Pcp PCP - General Family Medicine 03/10/20 11/30/21 [facility] 08/25/21 Ervin Schroeder MD Referring Provider Family Medicine 03/24/[address] [place] [phone] documented as of this encounter
--- OUTSIDE RECORDS SUMMARY | 2022-01-31 04:27 | XMS_ITS | Encounter Summary ---
:[address] [facility] Address [address] [place] [address] Care Team Providers Name Role Phone Elsewhere, Pcp Primary Care Provider Unavailable Reason for Visit Reason Comments External Lab Entry 10/25/2021 Encounter Details Date Type Department Care Team Description 10/28/2021 Clinical Ramirez Nguyen Transplant, Employee Adviser al Lab Entry Communication Center for Coordinator, (10/25/2021/) Transplantation and R.N. Clinical Regeneration in [facility] instant potato processor [address] [place] [phone] Social History Tobacco Use Types Packs/Day Years [...] do you attend jewish or Never 2021 advent services? Do you belong to any clubs or No 07/17/2021 organizations such as jewish groups, unions, fraMercent Corporation or athletic groups, or school groups? How [...] or the highest technical, or vocational p [facility] degree you have received? 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 Thanks, Chano Abraham, Myrtle, C.C.TSumaC. *All labs are now found in makr - Lab - Flowsheets. For further review of labs, please review there or under Synopsis* documented in this encounter Plan of Treatment Upcoming Encounters Date Type Specialty Care Team Description Office Visit [facility], 2 Medicine Vernell Perez [address] [place] [phone] Appointment Radiology [facility] 2 YTyrell, Lilian [address] [place] [phone] Hospital Gastroenterology and [facility] 2 Encounter Hepatology Tyrell Rodriguez M.D. [address] [place] [phone] Surgery Gastroenterology and [facility] ESOPHAG OGASTRODUODENOSCOPY 2 Hepatology Tyrell Rodriguez, Lilian [address] [place] [phone] Telemedicine Transplant 2 Lab Laboratory Medicine Karin, Olinda Gannon M.D., Ph.D. [address] [place] [phone] Lab Laboratory Medicine Olinda Frazier M.D., Ph.D. [address] [place] [phone] Office Visit Transplant Olinda Frazier M.D., Ph.D. [address] [place] [phone] Appointment Radiology Matthew Jerome 2 YJoshuaBuSmaBSumaSSuma, Lilian [address] [place] [phone] Appointment Gastroenterology and Adrianne, 2 Hepatology Yue Burciaga M.D. [address] [place] [phone] Office Visit Gastroenterology and Matthew Jerome 2 Hepatology Joshua RodriguezB.B.SLilian Moise [address] [place] [phone] Appointment Radiology Matthew Jerome 2 Y M.B.B.SSuma, Lilian [address] [place] [phone] Scheduled Procedures Name Priority Associated Diagnoses Date/Time [...] documented as of this encounter Care Teams Lard Renderer Relationship Specialty Start Date End Date Elsewhere, Pcp PCP - General Family Medicine 03/10/20 11/30/21 [facility] 08/25/21 Ervin Schroeder MD Referring Provider Family Medicine 03/24/[address] [place] [phone] documented as of this encounter
--- OUTSIDE RECORDS SUMMARY | 2022-01-31 04:27 | XMS_ITS | Encounter Summary ---
:1990 Author Organization [facility] Address [address] [place] [address] Care Team Providers Name Role Phone Elsewhere, Pcp Primary Care Provider Unavailable Encounter Details Date Type Department Care Team Description 10/31/2021 Orders Only Department of Mousa, Matthew Y, Cirrhosis Al coholic ([facility]) (Primary Dx); Gastroenterology in M.Tristan, Joshua Kruger. Defect Coagulation ([facility]) [place], [place] 10[address] [facility] 10[address] [place] [phone] Social History Tobacco Use Types Packs/Day Years [...] or relatives? How often do you attend baptism or Never 2021 mormon services? Do you belong to any clubs or No 07/17/2021 organizations such as baptism groups, unions, fragAuto or athletic groups, or school groups? 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 documented as of this encounter Plan of Treatment Upcoming Encounters Date Type Specialty Care Team Description Office Visit [facility], 2 Medicine Vernell Perez [address] [place] [phone] Appointment Radiology Matthew Jerome 2 YTyrell, MJules [address] [place] [phone] Hospital Gastroenterology and Matthew Jerome 2 Encounter Hepatology Tyrell Rodriguez, Lilian [address] [place] [phone] Surgery Gastroenterology and Matthew Jerome ESOPHAG OGASTRODUODENOSCOPY 2 Hepatology Joshua RodriguezBSumaBGraeme, Lilian [address] [place] [phone] Telemedicine Transplant 2 Lab Laboratory Medicine Karin, 2 Adeline Gannon M.D., Ph.D. [address] [place] [phone] Lab Laboratory Medicine Karin, 2 Adeline Gannon M.D., Ph.D. [address] [place] [phone] Office Visit Transplant Karin, Olinda Gannon M.D., Ph.D. [address] [place] [phone] Appointment Radiology Matthew Jerome 2 Jennifer M.B.B.SSuma, Lilian [address] [place] [phone] Appointment Gastroenterology and Adrianne, 2 Hepatology Yue Burciaga M.D. [address] [place] [phone] Office Visit Gastroenterology and Matthew Jerome 2 Hepatology Elizabeth Rodriguez.B.B.SSuma, Lilian [address] [place] [phone] Appointment Radiology Matthew Jerome 2 Y M.B.B.SLilian Moise [address] [place] [phone] Scheduled Procedures Name Priority Associated Diagnoses Date/Time ESOPHAGOGASTRODUODENOSCOPY Cirrhosis Alc oholic (HCC) 02/10/2022 8:45 AM CDT Hypertension Portal (HCC) documented as of this encounter Visit Diagnoses Diagnosis Cirrhosis Alcoholic (HCC) - Primary Defect Coagulation (HCC) Cirrhosis Alcoholic (HCC) Hypertension Portal (HCC) documented in this encounter Additional Health Concerns Assessment Noted Time PHQ-9 Depression Total Score: 10 10/06/2021 5:00 PM CD T documented as of this encounter Care Teams Silo Worker Relationship Specialty Start Date End Date Elsewhere, Pcp PCP - General Family Medicine 03/10/20 11/30/21 [facility] 08/25/21 Ervin Schroeder MD Referring Provider Family Medicine 03/24/[address] [place] [phone] documented as of this encounter
--- OUTSIDE RECORDS SUMMARY | 2022-01-31 04:27 | XMS_ITS | Encounter Summary ---
:1990 Author Organization [facility] Address [address] [place] [id number] Care Team Providers Name Role Phone Elsewhere, Pcp Primary Care Provider Unavailable Reason for Visit Auth/Cert Specialty Diagnoses / Procedures Referred By Contact Refer red To Contact Diagnoses Hepatic Encephalopathy Without Coma (HCC) hepatic encephalopathy Procedures DIR Referral ID Status Reason Start Date Expiration Date Visits Requ ested Visits Authorized [id number] 1 1 Encounter Details Date Type Department Care Team Description 11/09/2021 - Hospital [facility] Ekta Rubi M.D., M.S. [address] [place] [phone] Hepatic 11/11/2021 Encounter Hospital, Jody Maria M.B., B.Chir. [address] [place] [phone] Encephalopathy [facility], Without Coma ( HCC) [facility] (Primary Dx) Building, Sixth Floor [address] [place] [phone] Social History Tobacco Use Types Packs/Day [...] do you attend bahai or Never 2021 adventist services? 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 Primary Care Provider at Discharge: Primary Care Providers: Elsewhere, Pcp (General) No address on file Primary Care Provider Phone Number: None Primary Care Provider Fax Number: None Primary Team: [facility] Gastroenterology A Admission Date: 11/09/2021 Discharge Date: [...] and Hepatology 11/19/2021 4:00 PM LAB 01 [facility] Laboratory Medicine 11/26/2021 4:00 PM SHADI COUNSELOR 01 MERLYN 18 Nicotine Dependence For appointment details refer to your Patient Appointment Guide. TEST RESULTS PENDING AT DISCHARGE Pending Labs Order Current Status SPSMN Result Collected (11/11/21 0952) Bacterial Culture, Aerobic [...] CDT You were discharged from the [facility] Gastroenterology A Service. Please identify this service name if you call with questions after hospitalization. AttachmentsThe following attachments cannot be sent through Care Everywhere.Zinc Sulfate (By mouth) (Bahamian)documented in this encounter Medications at Time of Discharge Medication Sig Dispensed Refills Start Date End Date levonorgestreL (MIRENA) 1 each by 0 20 mcg/24 hours (7 yrs) intrauterine route 52 mg IUD continuously. Placed in 2014 pantoprazole (PROTONIX) Take 1 tablet (40 mg 30 tablet 1 40 mg EC tablet total) by mouth every morning before breakfast. thiamine (VITAMIN B1) Take 100 mg by mouth 0 100 mg tablet daily. ciprofloxacin (CIPRO) Take 1 tablet (500 mg 28 tablet 0 04/202211/26/2021 500 mg tablet total) by mouth every morning before breakfast. ergocalciferol Take 50,000 Units by 0 04/01/2021 [...] day as needed for nausea or vomiting. oxyCODONE (ROXICODONE) Take 1 tablet (5 mg [...] her liver transplant workup with Dr. Jerome. T Evon Rodriguez Pharm.D., R.Ph. - 11/10/2021 8:10 [...] COVID therapies indicated. Evon Rodriguez Pharm.D., R.Ph. [phone] documented in this encounter H&P Notes Jody [...] RST Gastroenterology A Admission Note REFERRING FACILITY [facility] SUBJECTIVE CHIEF COMPLAINT Altered mental status, jaundice [...] / PLAN Ms. Carias is hospitalized on T Gastroenterology A for evaluation and management of [...] seen and discussed with RST Gastroenterology A Legal Billing Specialist, Jo Ann Abbasi M.D.. Please see the supervisory note for further details. Please contact the primary service pager - [phone] with any questions. documented in this encounter [...] Care Team Description Office Visit Community [facility], 2 Medicine Vernell Perez [address] [place] [address] [phone] Appointment Radiology Matthew Jermoe 2 YTyrell, Lilian [address] [place] [phone] Hospital Gastroenterology and Queenie Matthew 2 Encounter Hepatology Tyrell Rodriguez M.D. [address] [place] [phone] Surgery Gastroenterology and Queenie Matthew ESOPHAG OGASTRODUODENOSCOPY 2 Hepatology Tyrell Rodriguez, Lilian [address] [place] [phone] Telemedicine Transplant 2 Lab Laboratory Medicine lOinda Frazier M.D., Ph.D. [address] [place] [phone] Lab Laboratory Medicine Olinda Frazier M.D., Ph.D. [address] [place] [phone] Office Visit Transplant Olinda Frazier M.D., Ph.D. [address] [place] [phone] Appointment Radiology Matthew Jerome 2 YTyrell M.D. [address] [place] [phone] Appointment Gastroenterology and Adrianne, 2 Hepatology Yue Burciaga M.D. [address] [place] [phone] Office Visit Gastroenterology and Matthew Jerome 2 Hepatology Tyrell Rodriguez M.D. [address] [place] [phone] Appointment Radiology Matthew Jerome 2 YTyrell M.D. [address] [place] [phone] Pending Results Name Type Priority Associated Diagnoses [...] Results SPSMA Result (11/11/2021 9:52 AM CDT) [facility] Method Time Signature Neutrophilic Segs 71 50 - 75 % 11/11/2021 DH and Bands 12:21 PM CDT Lymphocytes 25 18 - 42 % 11/11/2021 [facility] 12:21 PM CDT Monocytes 4 2 - 11 % 11/11/2021 [facility] 12:21 PM CDT Interpretation SeeComment 11/11/2021 [facility] 12:21 PM CDT Comment: No morphologic features of hemolysis are seen. Toxic changes and-or Dohle bodies are present; consider an infectio us process. Moderate acanthocytes present. Reviewed by: Tech 11/11/2021 12:21 PM CDT [facility] Specimen Anatomical Collection Method Collection Time Receive d Time (Source) Location / / Volume Laterality Blood (Blood, 11/11/2021 9:52 AM 11/12/19 Venous) CDT 10:47 AM CDT Tanmay Parker M.D. LAB BLOOD ADD-ON Performing Organization Address City/State/ZIP Code Phon e Number [facility] [address] [place], [place] [address] [place] [address] [facility] 200 [facility] (ABNORMAL) Prothrombin Time (PT) (11/11/2021 4:31 AM CDT) [facility] Method Time Signature Prothrombin 35.2 (H) 9.4 [...] Laterality Blood (Blood, 11/11/2021 4:31 AM 11/12/19 4:58 Venous) CDT AM CDT Gerard Andino M.D., M.S. LAB BLOOD ADD-ON Performing Organization Address City/State/ZIP Code Phon e Number [facility] - 200 [place], [place] [address] [facility] [place] [address] [facility] 200 [facility] (ABNORMAL) Comprehensive Metabolic Panel (11/11/2021 4:31 AM [...] 11/11/2021 DTL Black/ mL/min/BSA 6:27 AM CDT Senegalese Comment: ----ADDITIONAL INFORMATION---- Estimated GFR calculated using [...] Organization Address City/State/ZIP Code Phon e Number [facility] - [address] [place] [address] [facility] [place] [address] [facility] 200 [facility] (ABNORMAL) CBC without Differential (11/11/2021 4:31 AM CDT) [facility] gist Method Time Signature Hemoglobin 7.4 [...] Laterality Blood (Blood, 11/11/2021 4:31 AM 11/12/19 4:58 Venous) CDT AM CDT Gerard Andino M.D., M.S. LAB BLOOD ADD-ON Performing Organization Address City/State/ZIP Code Phon e Number [facility] - [address] [place], [place] [address] [facility] [place] [address] [facility] [address] Transfuse Red Blood Cells : (11/10/2021 9:05 PM CDT) Gerard Andino M.D., M.S. BLOOD TRANSFUSION ORDERABLES Transfuse Red Blood Cells : , 1 Units (11/10/2021 9:05 PM CDT) Gerard Andino M.D., M.S. BLOOD TRANSFUSION ORDERABLES US Paracentesis with Imaging [...] process. ?? All other fluids refer to [email or web address] for further interpretive information. This t est has been modified from the golf caddie's instruc tions. Its performance characteristics were determi foreign by [facility] in a manner consistent with CLIA [...] Organization Address City/State/ZIP Code Phon e Number [facility] - [address] [place], [place] [address] [facility] [place] [address] [facility] [address] Gram Stain (11/10/2021 2:32 PM CDT) Patholo gist Method Time Signature Gram Stain No organisms seen. 11/10/2021 DTL White blood cells present. 8:25 PM CDT Specimen Anatomical Collection Method Collection Time Receive d Time (Source) Location / / Volume Laterality Fluid 11/10/2021 2:32 PM 2 5:21 (Peritoneal CDT PM CDT Fluid) Comment: Specimen Source Site: Fluid Narrative [facility] - 11/10/2021 8:25 PM CDT Bacterial Culture: Received Bactec aerob ic and Bactec anaerobic bottles Gerard Andino M.D., M.S. LAB MICROBIOLOGY - GENERAL O RDERABLES Performing Organization Address City/State/ZIP Code Phon e Number [facility] - [facility] [place] [address] [place], [place] [address] [facility] [place] [address] [facility] [address] [facility] Protein, Total, Body Fluid (11/10/2021 2:32 PM [...] ical findings. All other fluids refer to [email or web address] for further inter pretive information. This test has been modified from the golf caddie's instructions. Its perform ance characteristics were determined by [facility] in a manner consistent with CLIA [...] Organization Address City/State/ZIP Code Phon e Number [facility] - [address] [place] [address] [facility] [place] [address] [facility] [address] [facility] Cell Count and Differential, Body Fluid (11/10/2021 2:32 PM CDT) [facility] Method Time Signature Fluid Type Peritoneal- 11/10/2021 DHPM Paracentesi 8:50 PM CDT s Gross Serous 11/10/2021 DHPM Appearance 8:50 PM CDT Total Nucleated 54 /mcL 11/10/2021 DHPM Cells 8:50 PM CDT Comment: ----REFERENCE VALUE---- Synovial: <150 /mcL Peritoneal: <500 /mcL Pleural: <500 /mcL Pericardial: <500 /mcL ----ADDITIONAL INFORMATION---- This test has been modified from the man ufacturer's instructions. Its performance characteri stics were determined by [facility] in a manner co nsistent with [...] CDT PM CDT Fluid) Gerard Andino M.D., M.SSuma LAB BODY FLUIDS AND STOOLS O JOSE Performing Organization Address [facility] Phon e Number [facility] - 200 [place] [address] [place] [address] [address] Bacterial Culture, Aerobic + Susc (11/10/2021 2:32 PM CDT) [facility] OwlTing ??? Method Time Signature Bacterial No growth 11/15/2021 DT Culture, after 5 9:17 AM CDT Aerobic + Susc days of incubation. Specimen Anatomical Collection Method Collection Time Receive d Time (Source) Location / / Volume Laterality Fluid 11/10/2021 2:32 PM 2 5:21 (Peritoneal CDT PM CDT Fluid) Comment: Specimen Source Site: Fluid Narrative [facility] - 11/15/2021 9:17 AM CDT Bacterial Culture: Received Bactec aerob ic and Bactec anaerobic bottles Gerard Andino M.D., M.S. LAB MICROBIOLOGY - GENERAL O JOSE Performing Organization Address City/[facility] Phon e Number [facility] - [phone] [place] [address] Transfuse Red Blood Cells : (11/10/2021 12:21 PM CDT) Dina Campa M.D. BLOOD TRANSFUSION ORDERABLES Transfuse Red Blood Cells : , 1 Units (11/10/2021 12:21 PM CDT) Dina Campa M.D. BLOOD TRANSFUSION ORDERABLES Direct Antiglobulin Test (Poly) (11/10/2021 12:02 PM CDT) [facility]wl[facility] ??? Method Time Signature Direct Negative Negative 11/10/2021 STRM Antiglobulin 12:44 PM CDT Test, Polyspecific Specimen Anatomical Collection Method Collection Time Receive d Time (Source) Location / / Volume Laterality Blood (Blood, 11/10/2021 12:02 11/10/2021 Venous) PM CDT 12:16 PM CDT Dina Campa M.D. LAB BLOOD BANK TEST ORDERABL ES Performing Organization Address City/State/ZIP Code Phon e Number [facility] - [address] [place] [address] [facility] [place] [address] [place] [address] [facility] (ABNORMAL) SPSMA Result (11/10/2021 12:02 PM CDT) Analysis Performed At Patho logist Time Signature Neutrophilic Segs 80 (H) 50 - 75 % 11/10/2021 DHPM and Bands 2:35 PM CDT Lymphocytes 16 (L) 18 - 42 % 11/10/2021 [facility] 2:35 PM CDT Monocytes 1 (L) 2 - 11 % 11/10/2021 [facility] 2:35 PM CDT Eosinophils 1 1 - 3 % 11/10/2021 [facility] 2:35 PM CDT Basophils 2 0 - 2 % 11/10/2021 [facility] 2:35 PM CDT Manual Absolute 5.20 1.56 - 11/10/2021 [facility] Neutrophil Count 6.45 2:35 PM CDT x10(9)/L Comment: ----ADDITIONAL INFORMATION---- The manual absolute neutrophil count is derived from a manual differential count and therefore is not exactly comparable to the automated absolute armida trophil count. Interpretation SeeComment 11/10/2021 2:35 PM CDT D HPM Comment: No morphologic features of hemolysis are seen. No schistocytes are seen. No platelet clumping. Reviewed by: Tech 11/10/2021 2:35 PM CDT [facility] Specimen Anatomical Collection Method Collection Time Receive d Time (Source) Location / / Volume Laterality Blood (Blood, 11/10/2021 12:02 11/10/2021 Venous) PM CDT 12:29 PM CDT Dina Campa M.D. LAB BLOOD ADD-ON Performing Organization Address City/[facility]/ZIP Code Phon e Number [facility] - [address] [place] [address] [place] [address] [facility] [address] (ABNORMAL) Haptoglobin (11/10/2021 12:02 PM CDT) P athologist Signature Haptoglobin, S <14 (L) 30 - 200 11/10/2021 [facility] mg/dL 5:27 PM CDT Specimen Anatomical Collection Method Collection Time Receive d Time (Source) Location / / Volume Laterality Blood (Blood, 11/10/2021 12:02 11/10/2021 3:46 Venous) PM CDT PM CDT Dina Campa M.D. LAB BLOOD ADD-ON Performing Organization Address City/State/ZIP Code Phon e Number [facility] [address] [place], [place] [address] [facility] [place] [address] Laboratory Medicine and Pathology [address] TA CESAR (Lactate Dehydrogenase) (11/10/2021 12:02 PM CDT) [facility] LD 208 122 - 222 11/10/2021 DTL U/L 1:10 PM CDT Specimen Anatomical Collection Method Collection Time Receive d Time (Source) Location / / Volume Laterality Blood (Blood, 11/10/2021 12:02 11/10/2021 Venous) PM CDT 12:48 PM CDT Dina Campa M.D. LAB BLOOD NON ADD-ON Performing Organization Address City/[facility]/ZIP Code Phon e Number [facility] - [address] [place], [place] [address] [facility] [address] [facility] [address] [facility] (ABNORMAL) Reticulocytes (11/10/2021 12:02 PM CDT) [facility] Method Time [facility] Reticulocytes, B 7.17 (H) 0.60 - 11/10/2021 [...] Organization Address City/State/ZIP Code Phon e Number [facility] - 200 [place], [place] [address] [place] [address] (ABNORMAL) Hemoglobin (11/10/2021 12:02 PM CDT) athologist Signature Hemoglobin 6.9 (L) 11.6 - 15.0 11/10/2021 DTL g/dL 2:23 PM CDT Specimen Anatomical Collection Method Collection Time Receive d Time (Source) Location / / Volume Laterality Blood (Blood, 11/10/2021 12:02 11/10/2021 Venous) PM CDT 12:29 PM CDT Dina Campa M.D. LAB BLOOD ADD-ON Performing Organization Address City/State/[facility] Code Phon e Number [facility] - [phone] [place] [address] (ABNORMAL) Prothrombin Time (PT) (11/10/2021 4:38 AM CDT) [facility] gist Method Time Signature Prothrombin 39.1 (H) [...] Organization Address City/State/ZIP Code Phon e Number [facility] - [phone] [place] [address] Phosphorus Inorganic (11/10/2021 4:38 AM CDT) athologist Signature Phosphorus 4.0 2.5 - 4.5 11/10/2021 DTL (Inorganic), S mg/dL 6:10 AM CDT Specimen Anatomical Collection Method Collection Time Receive d Time (Source) Location / / Volume Laterality Blood (Blood, 11/10/2021 4:38 AM 11/11/19 22 5:51 Venous) CDT AM CDT Dina Campa M.D. LAB BLOOD ADD-ON Performing Organization Address City/[facility] Phon e Number [facility] - [address] Magnesium (11/10/2021 4:38 AM CDT) P athologist Signature Magnesium, S 1.7 1.7 - 2.3 11/10/2021 DTL mg/dL 6:10 AM CDT Specimen Anatomical Collection Method Collection Time Receive d Time (Source) Location / / Volume Laterality Blood (Blood, 11/10/2021 4:38 AM 11/11/19 22 5:51 Venous) CDT AM CDT Dina Campa M.D. LAB BLOOD ADD-ON Performing Organization Address City/[facility] Phon e Number [facility] - [address] [place] [address] (ABNORMAL) Basic Metabolic Panel (11/10/2021 4:38 AM [...] 11/10/2021 DTL Black/ mL/min/BSA 7:08 AM CDT Senegalese Comment: ----ADDITIONAL INFORMATION---- Estimated GFR calculated using [...] Organization Address City/State/ZIP Code Phon e Number [facility] - [address] [place] [address] [facility] [place] [address] [facility] 200 [facility] (ABNORMAL) CBC with Differential, Blood (11/10/2021 4:38 [...] Organization Address City/State/ZIP Code Phon e Number [facility] - [address] [place] [address] [facility] [address] [facility] 200 [facility] Type and Screen (with reflex Antibody ID) (11/10/2021 4:37 AM CDT) [facility] gist Method Time Signature ABORh B [...] Laterality Blood (Blood, 11/10/2021 4:37 AM 11/11/19 7:29 Venous) CDT AM CDT Dnia Campa M.D. LAB BLOOD BANK TEST ORDERABL ES Performing Organization Address City/[facility]/ZIP Code Phon e Number [facility] - [address] [place], [place] [address] [facility] [place] [address] [facility] [address] ECG 12 Lead (11/09/2021 10:47 PM CDT) P athologist Signature Ventricular Rate 88 BPM MUSE ECG/Min [place] Interval 158 ms MUSE QRSD Interval 84 ms MUSE QT Interval 344 ms MUSE QTC Interval 417 ms MUSE P [place] 64 degrees MUSE R [place] 46 degrees MUSE T Wave [place] 37 degrees MUSE Specimen Anatomical Collection Method [...] LI-RADS is supported and endorsed by the [employer] [employer]. More information can be found on the followin g link: https://www.acr.org/Clinical-Resources/Morqkhckn-gwp-Cnfn-Systems/LI-RADS/Ultras hisl-NL-ZODP-v2017 Procedure Note Rex Jenkins M.D. - 11/10/2021 [...] LI-RADS is supported and endorsed by the [place] [employer]. More information can be found on the followin g link: https://www.acr.org/Clinical-Resources/Wbplhaxbr-zus-Xowk-Systems/LI-RADS/Ultras slyf-DF-QXKW-v2017 IMPRESSION: 1. Cirrhotic morphology of the liver wit hout suspicious focal hepatic lesions. LI-RADS 1B. 2. Hepatic arterial and venous vasculatu re is patent with antegrade flow. Elevated main hepatic artery velocities. 3. Moderate volume ascites. Dina Campa M.D. IMG US PROCEDURES Bacteria / Ines Culture, Blood #2 (11/09/2021 8:25 PM CDT) [facility] Method Time Signature Bacteria/Adriana No growth 11/14/2021 DTL da Culture, after 5 10:02 PM CDT Blood days of incubation. Specimen (Source) Anatomical Collection Method Collection Time Re ceived Time Location / / Volume Laterality Blood (Blood, 11/09/2021 8:25 11/09/2021 9:40 Peripheral Draw) PM CDT PM CDT Comment: Specimen Source Site: Blood Narrative [facility] [place] - 11/14/2021 10:02 PM CDT Received Bactec Peds bottle Dina Campa M.D. LAB MICROBIOLOGY - GENERAL O RDERABLES Performing Organization Address City/State/ZIP Code Phon e Number [facility] - [address] [place] [address] [place] [address] [facility] 200 [facility] Bacteria / Ines Culture, Blood #1 (11/09/2021 7:10 PM CDT) [facility] Method Time Signature Bacteria/Adriana No growth 11/14/2021 DTL da Culture, after 5 8:02 PM CDT Blood days of incubation. Specimen (Source) Anatomical Collection Method Collection Time Re ceived Time Location / / Volume Laterality Blood (Blood, 11/09/2021 7:10 11/09/2021 7:43 Peripheral Draw) PM CDT PM CDT Comment: Specimen Source Site: Blood Narrative [facility] [place] - 11/14/2021 8:02 PM CDT Received Bactec Peds bottle Dina Campa M.D. LAB MICROBIOLOGY - GENERAL O RDERABLES Performing Organization Address City/[facility]/ZIP Code Phon e Number [facility] - [phone] [place] [address] Phosphorus Inorganic (11/09/2021 7:09 PM CDT) [facility] Phosphorus 4.3 2.5 - 4.5 11/09/2021 DT (Inorganic), S mg/dL 8:15 PM CDT Specimen Anatomical Collection Method Collection Time Receive d Time (Source) Location / / Volume Laterality Blood (Blood, 11/09/2021 7:09 PM 11/10/19 7:44 Venous) CDT PM CDT Dina Campa M.D. LAB BLOOD ADD-ON Performing Organization Address [facility] Phon e Number [facility] - [phone] [place] [address] AFP (Alpha-Fetoprotein), Tumor Marker (11/09/2021 7:09 PM CDT) athologist [facility] Alpha-Fetoprote 6.4 ng/mL 11/10/2021 SDSC in, Tumor [...] method is an immunoenzymatic assay manufactured by [employer]. and is tested on the [employer] DxI 800. Values obtained with different [...] Organization Address City/State/ZIP Code Phon e Number [facility] [address] [place], [place] [address] [facility] [place] [address] Laboratory Medicine and Pathology [address] [...] M.D. LAB BLOOD ADD-ON Performing Organization Address City/[facility]/ZIP Code Phon e Number [facility] - [address] [place], [place] [address] [facility] [place] [address] [facility] [address] (ABNORMAL) Lactate, baseline (11/09/2021 7:09 PM CDT) athologist Signature Lactate, P 2.7 (H) 0.5 - 2.2 11/09/2021 [facility] mmol/L 7:35 PM CDT Specimen Anatomical Collection Method Collection Time Receive d Time (Source) Location / / Volume Laterality Blood (Blood, 11/09/2021 7:09 PM 11/10/19 22 7:20 Venous) CDT PM CDT Dina Campa M.D. LAB BLOOD NON ADD-ON Performing Organization Address City/[facility] Phon e Number [facility] - [address] [facility] [address] 200 [facility] (ABNORMAL) Hepatic Function Panel (11/09/2021 7:09 PM CDT) [facility] Method Time Signature Bilirubin, Total, S 16.9 [...] M.D. LAB BLOOD ADD-ON Performing Organization Address City/[facility] Phon e Number [facility] - [address] DTL [place], [place] [phone] [place] [address] Main [place] [address] (ABNORMAL) Basic Metabolic Panel (11/09/2021 7:09 PM [...] 11/09/2021 DTL Black/ mL/min/BSA 9:49 PM CDT Senegalese Comment: ----ADDITIONAL INFORMATION---- Estimated GFR calculated using [...] Organization Address City/State/ZIP Code Phon e Number [facility] - [address] [place], [place] [phone] [facility] [place] [address] Laboratories-[address] (ABNORMAL) CRP (C-Reactive Protein) (11/09/2021 7:09 [...] Organization Address City/State/ZIP Code Phon e Number [facility] - [address] [place] [address] [place] [address] Laboratories-[address] (ABNORMAL) CBC with Differential, Blood (11/09/2021 [...] Laterality Blood (Blood, 11/09/2021 7:09 PM 11/10/19 7:28 Venous) CDT PM CDT Dina Campa M.D. LAB BLOOD ADD-ON Performing Organization Address City/State/ZIP Code Phon e Number [facility] - [facility] [place] [address] [place], [place] [address] [facility] [place] [address] Laboratories-[facility] [address] documented in this encounter Visit Diagnoses Diagnosis Hepatic Encephalopathy Without Coma (HCC ) - Primary Cirrhosis Alcoholic (HCC) Ascites Failure Renal Acute (Acute Kidney Injury ) (HCC) Anemia COVID-19 Infection Cirrhosis Alcoholic (HCC) Hypertension Portal (HCC) documented [...] Administer the 25% solution at 100 mL/hr clbrfdegczchm-gfpshnsgle-wfldgmyk in Lipoderm Given 11/11/2021 9 :38 AM CDT 1 g 2%-5%-5% cream 1 g 1 g, topical, 2 times daily, First dose on 11/10/21 at 1330 Given 11/10/2021 9:38 PM CDT [...] mL/hr, Administer over 60 Minutes, Once, On Wed11/09/21 at 1915, For 1 dose, Protect from light. polyethylene glycol powder packet 17 g ( MIRALAX) 17 g, oral, Daily PRN, constipation, Starting on Wed at 1749, Ordered sequence of administration: polyethylene [...] human 25 % injection 100 g (COMPLETED) 1188 (N ew Bag - Provider: Kevon Rich RSumaNSuma) 100 g, intravenous, Once, On Wed11/09/21 at 2330, For 1 dose, If no infusion rate specified: Administer the 25% solution at 100 mL/hr dolajarsbjrcs-tufpcqhxqo-gwuqerux in Lipoderm 2%-5%-5% cream 1 g 1337 (Given - Provider: Neptali Calvillo R.N.)2138 (Given - Provider: Karen Palacio R.N.) 0938 (Given - Provider: Bernardo Nguyen R.N.) 1 g, topical, 2 times daily, First dose on Wed11/10/21 at 1330 ciprofloxacin tablet 500 mg (CIPRO) 1049 (Given - Provider: Neptali Calvillo R.N.) 0635 (Given - Provider: Karen day R.N.) 500 mg, oral, Daily before breakfast, [...] sulfate in water IVPB 2 g (COMPLETED) 0918 (New Bag - Provider: Neptali Calvillo R.N.) [...] (COMPLETED) 2100 (New Bag - Provider: Kevon Rich R.N.) 10 mg, intravenous, at 51 mL/hr, [...] breaths/minute. midazolam (PF) injection 0.5 mg (VERSED) 1458 (Given - Provider: Hardy Rosa R.N.) 0.5 mg, intravenous, Every 2 min PRN, se dation, RASS -1, Starting on Wed11/10/21 at 1430, Intraprocedure (RAD), May repeat every 2 minutes for a maximum of 5 mg. Do not give if respiratory rate is less than 8 breaths/minute. midazolam (PF) injection 1 mg (VERSED) 1 455 (Given - Provider: Hardy Rosa R.N.) 1 mg, intravenous, Every 2 min [...] (ROXICODONE) 1602 (Given - Provider: Neptali Calvillo RSumaNSuma) 0203 (Given - Provider: Karen day R.N.)0938 (Given - Provider: Bernardo Nguyen R.NSuma) 2.5 mg, oral, Every 8 hours PRN, [...] (COMPAZINE) 0444 (Given - Provider: Karen Palacio RGabby) 5 mg, intravenous, Every 6 hours PRN, na usea, vomiting, Starting on Wed11/09/21 at 2349 sodium [...] documented as of this encounter Care Teams Product Analyst Relationship Specialty Start Date End Date Elsewhere, Pcp PCP - General Family Medicine 03/10/20 11/30/21 [facility] 08/25/21 Ervin Schroeder MD Referring Provider Family Medicine 03/24/[address] [place] [address] documented as of this encounter
--- OUTSIDE RECORDS SUMMARY | 2022-01-31 04:27 | XMS_ITS | Encounter Summary ---
:[address] [facility] Address [address] [place] [address] Care Team Providers Name Role Phone Elsewhere, Pcp Primary Care Provider Unavailable Reason for Visit Reason Comments Nicotine Dependence Outpatient (Routine) - Closed Specialty Diagnoses / Procedures Referred By Contact Refer red To Contact Nicotine Dependence Jessy Crain M.A., C.T.T.S. [address] [place] [address] Referral ID Status Reason Start Date Expiration Date Visits Requ ested Visits Authorized [id number] Closed 10/01/2021 10/01/2022 1 1 Encounter Details Date Type Department Care Team Description 10/27/2021 Telemedicine Department of Yehuda Crain Dep endence Nicotine Dependence, Jessy Gannon M.A., Cig arettes (Primary [facility], in C.T.T.S. Dx) [place], [place] [address] [facility] [[email or web address]] [address] [place] [phone] Social History Tobacco Use Types Packs/Day Years [...] do you attend muslim or Never 2021 buddhist services? Do you belong to any clubs or No 07/17/2021 organizations such as muslim groups, unions, fraStoritz or athletic groups, or school groups? 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 - 10/27/2021 9:00 AM CDT Follow-up visit conducted via real-time audio/video technology by Jessy Crain M.A., C.T.T.S. in [place], [place] at [facility] to the patient at home. OBJECTIVE Catia [...] [employer], 2 Medicine Vernell Perez [address] [place] [address] Appointment Radiology Matthew Jerome 2 Fredy RodriguezSSuma, M.D. [address] [place] [phone] [facility] Gastroenterology and Matthew Jerome 2 Encounter Hepatology Tyrell Rodriguez M.D. 10[address] [place] [phone] Surgery Gastroenterology and Matthew Jerome ESOPHAG OGASTRODUODENOSCOPY 2 Hepatology Tyrell Rodriguez M.D. [address] [place] [phone] Telemedicine Transplant 2 Lab Laboratory Medicine Karin, 2 Adeline Gannon M.D., Ph.D. [address] [place] [phone] Lab Laboratory Medicine Karin, 2 Adeline Gannon M.D., Ph.D. [address] [place] [phone] Office Visit Transplant Karin, 2 Adeline Gannon M.D., Ph.D. [address] [place] [phone] Appointment Radiology Matthew Jerome 2 Tyrell Rodriguez M.D. [address] [place] [phone] Appointment Gastroenterology and Adrianne, 2 Hepatology Yue Burciaga M.D. [address] [place] [phone] Office Visit Gastroenterology and Matthew Jerome 2 Hepatology Tyrell Rodriguez M.D. [address] [place] [phone] Appointment Radiology Matthew Jerome 2 YTyrell, Lilian [address] [place] [phone] Scheduled Procedures Name Priority Associated Diagnoses Date/Time ESOPHAGOGASTRODUODENOSCOPY Cirrhosis Alc oholic (HCC) 02/10/2022 8:45 AM CDT Hypertension Portal (HCC) documented as of this encounter Visit Diagnoses Diagnosis Nicotine Dependence Cigarettes - Primary Cirrhosis Alcoholic (HCC) Hypertension Portal (HCC) documented in this encounter Additional Health Concerns Assessment Noted Time PHQ-9 Depression Total Score: 10 10/06/2021 5:00 PM CD T documented as of this encounter Care Teams School Library Media Specialist Relationship Specialty Start Date End Date Elsewhere, Pcp PCP - General Family Medicine 03/10/20 11/30/21 [facility] [place] [facility] 08/25/21 Ervin Schroeder MD Referring Provider Family Medicine 03/24/[address] [place] [phone] documented as of this encounter
--- OUTSIDE RECORDS SUMMARY | 2022-01-31 04:27 | XMS_ITS | Encounter Summary ---
:1990 Author Organization [facility] Address [address] [place] [address] Care Team Providers Name Role Phone Elsewhere, Pcp Primary Care Provider Unavailable Reason for Visit Reason Comments Follow up on caregiver plan Encounter Details Date Type Department Care Team Description 10/20/2021 Clinical Ramirez Santana, Follow up on Communication Center for Joel Gannon caregiver plan Transplantation and L.I.C.S.W., Clinical Regeneration M.S.W. in [address] [place] [address] [place], [place] [phone] (Work) [phone] Social History Tobacco Use Types Packs/Day Years [...] do you attend pentecostalism or Never 2021 nondenominational services? Do you belong to any clubs or No 07/17/2021 organizations such as pentecostalism groups, unions, fraWhite Sky or athletic groups, or school groups? 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 Radhames Neumann [facility] (Pain Rehabilitation) - virtual Complex [...] called the patient on 10/17/2021 (cell phone: [phone]) to attempt to follow up on her [...] Care Team Description Office Visit [facility], 2 Medicine Vernell Perez [address] [place] [phone] Appointment Radiology [facility] 2 YJoshuaB.BGraeme, MJules [address] [place] [phone] Hospital Gastroenterology and [facility] 2 Encounter Hepatology Vik RodriguezBGraeme, MJules [address] [place] [phone] Surgery Gastroenterology and [facility] ESOPHAG OGASTRODUODENOSCOPY 2 Hepatology Joshua RodriguezB.B.SSuma, MCee. [address] [place] [phone] Telemedicine Transplant 2 Lab Laboratory Medicine Olinda Frazier M.D., Ph.D. [address] [place] [phone] Lab Laboratory Medicine Olinda Frazier M.D., Ph.D. [address] [place] [phone] Office Visit Transplant Karin 2 Adeline Gannon M.D., Ph.D. [address] [place] [phone] Appointment Radiology Matthew Jerome 2 YJoshuaB.B.SSuma, MJules [address] [place] [phone] Appointment Gastroenterology and Olinda Silver Hepatology Yue Burciaga M.D. [address] [place] [phone] Office Visit Gastroenterology and Matthew Jerome 2 Hepatology Elizabeth Rodriguez.B.B.SSuma, MJules 1025 [place] [phone] Appointment Radiology Matthew Jerome 2 Y M.B.B.SSuma, MJules [address] [place] [phone] Scheduled Procedures Name Priority Associated Diagnoses Date/Time ESOPHAGOGASTRODUODENOSCOPY Cirrhosis Alc oholic (HCC) 02/10/2022 8:45 AM CDT Hypertension Portal (HCC) documented as of this encounter Visit Diagnoses Not on filedocumented in this encounter Additional Health Concerns Assessment Noted Time PHQ-9 Depression Total Score: 10 10/06/2021 5:00 PM CD T documented as of this encounter Care Teams Podiatry Assistant Relationship Specialty Start Date End Date Elsewhere, Pcp PCP - General Family Medicine 03/10/20 11/30/21 [facility] [place] lab 08/25/21 Ervin Schroeder MD Referring Provider Family Medicine 03/24/[address] [place] [address] documented as of this encounter
--- OUTSIDE RECORDS SUMMARY | 2022-01-31 04:27 | XMS_ITS | Encounter Summary ---
:1990 Author Organization [facility] Address [address] [place] [address] Care Team Providers Name Role Phone Elsewhere, Pcp Primary Care Provider Unavailable Reason for Visit Transplant (Routine) - Closed Specialty Diagnoses / Procedures Referred By Contact Refer red To Contact Transplant Surgery / Diagnoses Cirrhosis Alcoholic (HCC) Abnormal Liver Function Test Ascites Pretransplant Recipient Evaluation Exam [facility]operative [facility] Lilian, M.P.H. [address] [place] [address] Referral ID Status Reason Start Date Expiration Date Visits Requ ested Visits Authorized [id number] Closed 08/25/2021 08/25/2022 1 1 Encounter Details Date Type Department Care Team Description 10/22/2021 Telemedicine Warren Carter M.D., M.P.H. [address] [place] [phone] Moderate Or Severe Use Disorder (Depende nce) Alcohol Remission (HCC) (Primary Dx); Brigid Graham M.D. 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 Do you belong to any clubs or No 07/17/2021 organizations such as roman catholic groups, unions, fraternal or athletic groups, [...] or the highest technical, or vocational p [facility] degree you have received? 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 - 10/22/2021 3:00 PM CDT DEMOGRAPHICS Catia aCrias [address] [place] [address] 3 [facility] [phone] 31 y.o. REFERRAL SOURCE: Warren Hernández M.D., M.P.H. Consult conducted via real-time audio/video technology by Brigid Sales M.D. in [facility] to the patient in Patient's Home [...] time of this evaluation and reviewed the [facility] record. She has been seen by my [...] and Family: Twice a week ??? Attends Latter Day Services: Never ??? Active Member of Clubs [...] service: No Occupational history: She worked at [employer] Marital/partner status: She has been with her boyfriend for 12 years. Children: No Latter Day/spiritual: None reported. Support network: She is not [...] Type Specialty Care Team Description Office Visit [facility], 2 Medicine Vernell Perez [address] [place] [phone] Appointment Radiology [facility], Aragon 2 Y, M.B.B.S., M.Jeri [address] [place] [phone] [facility] Gastroenterology and [facility], Matthew 2 Encounter Hepatology YElizabeth.B.B.S., MJules [address] [place] [phone] Surgery Gastroenterology and [place], Matthew ESOPHAG OGASTRODUODENOSCOPY 2 Hepatology Y M.B.B.S., MSumaD. [address] [place] [address] [phone] Telemedicine Transplant 2 Lab Laboratory Medicine Karin, 2 Adeline Gannon M.D., Ph.D. [address] [place] [phone] Lab Laboratory Medicine Karin, Olinda Adeline Gannon M.D., Ph.D. [address] [place] [phone] Office Visit Transplant Karin, Olinda Adeline Gannon M.D., Ph.D. [address] [place] [phone] Appointment Radiology Matthew Jerome 2 YElizabeth.B.B.SSuma, Lilian [address] [place] [address] [phone] Appointment Gastroenterology demian Silver 2 Hepatology Yue Burciaga M.D. [address] [place] [phone] Office Visit Gastroenterology and Matthew Jerome 2 Hepatology Jennifer M.B.B.SLilian Moise [address] [place] [phone] Appointment Radiology Matthew Jerome 2 Y M.B.B.SLilian Moise [address] [place] [phone] Scheduled Procedures Name Priority Associated Diagnoses Date/Time [...] Test Pretransplant Recipient Evaluation Exam Preoperative Exam Cirrhosis Alcoholic (HCC) Hypertension Portal (HCC) documented in this encounter Additional Health Concerns Assessment Noted Time PHQ-9 Depression Total Score: 10 10/06/2021 5:00 PM CD T documented as of this encounter Care Teams Air Hole Driller Relationship Specialty Start Date End Date Elsewhere, Pcp PCP - General Family Medicine 03/10/20 11/30/21 [facility] 08/25/21 Ervin Schroeder MD Referring Provider Family Medicine 03/24/[address] [place] [address] documented as of this encounter
--- OUTSIDE RECORDS SUMMARY | 2022-01-31 04:27 | XMS_ITS | Encounter Summary ---
:1990 Author Organization [facility] Address [address] [place] [address] Care Team Providers Name Role Phone Elsewhere, Pcp Primary Care Provider Unavailable Reason for Referral Transplant (Routine) - Closed Specialty Diagnoses / Procedures Referred By Contact Refer red To Contact Transplant Surgery / Joel Tan [place] [facility] Transplant Shala, M.S.W. [address] [place] [address] Referral ID Status Reason Start Date Expiration Date Visits Requ ested Visits Authorized [id number] Closed 10/29/2021 10/29/2022 1 1 Scheduling Instructions Please schedule a 60 min visit for me to meet with the patient when she returns in the future for pre-transplant follow up. Thank you. Encounter Details Date Type Department Care Team Description 10/29/2021 Orders Only Department of Social Work Rajiv Tan, in [place], M.S.W. 200 [facility] 200 [place] [phone] [place] [address] [phone] (Wo rk) Social History Tobacco Use Types [...] do you attend taoism or Never 2021 jehovah's witness services? 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 encounter Plan of Treatment Upcoming Encounters Date Type Specialty Care Team Description Office Visit [facility], 2 Medicine Vernell Perez [address] [place] [address] [phone] Appointment Radiology Matthew Jerome 2 Y, M.B.BGraeme, Lilian [address] [place] [phone] Hospital Gastroenterology and [facility] 2 Encounter Hepatology Y MSumaBSumaBGraeme, Lilian [address] [place] [phone] Surgery Gastroenterology and [facility], Matthew ESOPHAG OGASTRODUODENOSCOPY 2 Hepatology Y M.B.BGraeme, Lilian [address] [place] [phone] Telemedicine Transplant 2 Lab Laboratory Medicine Karin, 2 Adeline Gannon M.D., Ph.D. [address] [place] [phone] Lab Laboratory Medicine Karin, 2 Adeline Gannon M.D., Ph.D. [address] [place] [phone] Office Visit Transplant Karin, Olinda Gannon M.D., Ph.D. [address] [place] [phone] Appointment Radiology Matthew Jerome 2 Y, M.B.B.SSuma, Lilian [address] [place] [phone] Appointment Gastroenterology and Adrianne, 2 Hepatology Yue Burciaga M.D. [address] [place] [phone] Office Visit Gastroenterology and Matthew Jerome 2 Hepatology Tyrell Rodriguez M.D. 1025 [place] [phone] Appointment Radiology LuisMatthew abdul 2 Tyrell Rodriguez M.D. [address] [place] [address] [phone] Scheduled Procedures Name Priority Associated Diagnoses Date/Time ESOPHAGOGASTRODUODENOSCOPY Cirrhosis Alc oholic (HCC) 02/10/2022 8:45 AM CDT Hypertension Portal (HCC) Scheduled Referrals Name Type Priority Associated Order Schedule Diagnoses Transplant Liver Outpatient Referral Routine Expe cted: office visit 01/26/2022 (clinic) (Approximate), Expires: 01/29/2023 documented as of this encounter Visit Diagnoses Not on filedocumented in this encounter Additional Health Concerns Infection Onset Date Last Indicated Resolved Time COVID19 Pending 11/12/2021 11/12/2021 11/12/2021 4:20 AM CDT [id number]: Patients who are NOT sev erely immunocompromised: Asymptomatic - At least 10 days have passed since the date of the first positive PCR test 11/12/2021 11/12/2021 11/13/2021 3:19 PM CDT and Patient has remained asymptomatic throughout their infection Assessment Noted Time PHQ-9 Depression Total Score: 10 10/06/2021 5:00 PM CD T documented as of this encounter Care Teams Contracts Paralegal Relationship Specialty Start Date End Date Elsewhere, Pcp PCP - General Family Medicine 03/10/20 11/30/21 [facility] [place] lab 08/25/21 Ervin Schroeder MD Referring Provider Family Medicine 03/24/[address] [place] [phone] documented as of this encounter
--- OUTSIDE RECORDS SUMMARY | 2022-01-31 04:27 | XMS_ITS | Encounter Summary ---
:1990 Author Organization [facility] Address [address] [place] [address] Care Team Providers Name Role Phone Elsewhere, Pcp Primary Care Provider Unavailable Reason for Visit Reason Comments Follow up on caregiver plan Encounter Details Date Type Department Care Team Description 10/17/2021 Clinical Ramirez Santana, Follow up on Communication Center for Joel Gannon caregiver plan Transplantation and L.I.C.S.W., Clinical Regeneration M.S.W. in [address] [place] [address] [place], [place] [phone] (Work) [phone] Social History Tobacco Use Types Packs/Day Years [...] do you attend adventism or Never 2021 taoist services? Do you belong to any clubs or No 07/17/2021 organizations such as adventism groups, unions, fraStriped Sail or athletic groups, or school groups? 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 ??in [place] Transplant Psychiatry (Pain Rehabilitation), 10/06/2021: - virtual [...] called the patient this afternoon (cell phone: [phone]) to attempt again follow up on her [...] Care Team Description Office Visit [facility], 2 Medicine Vernell Perez [address] [place] [phone] Appointment Radiology [facility] 2 YJoshuaB.B.Lilian [place] [address] [place] [phone] Hospital Gastroenterology and [facility] 2 Encounter Hepatology YJoshuaB.B.Kath, Lilian [address] [place] [phone] Surgery Gastroenterology and [facility] ESOPHAG OGASTRODUODENOSCOPY 2 Hepatology YJoshuaB.B.S., Lilian [address] [place] [address] [phone] Telemedicine Transplant 2 Lab Laboratory Medicine Karin, Olinda Gannon M.D., Ph.D. [address] [place] [phone] Lab Laboratory Medicine Olinda Frazier M.D., Ph.D. [address] [place] [phone] Office Visit Transplant Karin, 2 Adeline Gannon M.D., Ph.D. [address] [place] [phone] Appointment Radiology Matthew Jerome 2 YElizabeth.B.B.SSuma, MJules [address] [place] [phone] Appointment Gastroenterology and Adrianne 2 Hepatology Yue Burciaga M.D. [address] [place] [phone] Office Visit Gastroenterology and Matthew Jerome 2 Hepatology Elizabeth Rodriguez.B.B.SSuma, MJules [address] [place] [address] [phone] Appointment Radiology Matthew Jerome 2 Y M.B.B.SSuma, MJules [address] [place] [phone] Scheduled Procedures Name Priority Associated Diagnoses Date/Time ESOPHAGOGASTRODUODENOSCOPY Cirrhosis Alc oholic (HCC) 02/10/2022 8:45 AM CDT Hypertension Portal (HCC) documented as of this encounter Visit Diagnoses Not on filedocumented in this encounter Additional Health Concerns Assessment Noted Time PHQ-9 Depression Total Score: 10 10/06/2021 5:00 PM CD T documented as of this encounter Care Teams Icicle Machine Operator Relationship Specialty Start Date End Date Elsewhere, Pcp PCP - General Family Medicine 03/10/20 11/30/21 [facility] [place] lab 08/25/21 Ervin Schroeder MD Referring Provider Family Medicine 03/24/[address] [place] [address] documented as of this encounter
--- NOTE | 2022-01-31 04:28 | ED.NURSE ---
Critical lab called: hgb 7.4 notified
--- OUTSIDE RECORDS SUMMARY | 2022-01-31 04:28 | XMS_ITS | Encounter Summary ---
:1990 Author Organization [facility] Address [address] [place] [address] Care Team Providers Name Role Phone Elsewhere, Pcp Primary Care Provider Unavailable Reason for Visit Transplant (Routine) - Closed Specialty Diagnoses / Procedures Referred By Contact Refer red To Contact Transplant Surgery / Warren Hernández Roc[facility] Transplant Lilian, M.P.H. [address] [place] [address] Referral ID Status Reason Start Date Expiration Date Visits Requ ested Visits Authorized [id number] Closed 08/26/2021 08/26/2022 1 1 Encounter Details Date Type Department Care Team Description 10/03/2021 Office Visit Silvano Funez M.D. [address] [place] [address] [phone] Patent Foramen Ovale (HCC) (Primary Dx); [facility] Abelino Chow M.D. [address] [place] [phone] Hypertension Portal (HCC); Transplantation and Cirrhosi s Alcoholic (HCC); Clinical Regeneration in Pre transplant Recipient Evaluation Exam [employer], [place] [address] [place] [phone] Social History Tobacco Use Types Packs/Day [...] do you attend jewish or Never 2021 mandaeism services? 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, 2 Medicine Vernell Perez 300 [place] [phone] Appointment Radiology [facility] 2 YJoshuaBSumaBGraeme, Lilian [address] [place] [address] [phone] Hospital Gastroenterology and [facility] 2 Encounter Hepatology Vik RodriguezBGraeme, Lilian [address] [place] [phone] Surgery Gastroenterology and [facility] ESOPHAG OGASTRODUODENOSCOPY 2 Hepatology Joshua RodriguezBSumaBGraeme, Lilian [address] [place] [address] [phone] Telemedicine Transplant 2 Lab Laboratory Medicine Karin, 2 Adeline Gannon M.D., Ph.D. [address] [place] [address] [phone] Lab Laboratory Medicine Karin, 2 Adeline Gannon M.D., Ph.D. [address] [place] [phone] Office Visit Transplant Karin, 2 Adeline Gannon M.D., Ph.D. [address] [place] [phone] Appointment Radiology Matthew Jerome 2 Y, M.B.B.SSuma, MJlues [address] [place] [address] [phone] Appointment Gastroenterology and [place], 2 Hepatology Yue Burciaga M.D. [address] [place] [address] Office Visit Gastroenterology and Matthew Jerome 2 Hepatology Elizabeth Rodriguez.B.B.SSuma, Lilian [facility]5 [place] [phone] Appointment Radiology Matthew Jerome 2 Y M.B.B.SSuma, MJules [address] [place] [phone] Scheduled Procedures Name Priority Associated Diagnoses Date/Time ESOPHAGOGASTRODUODENOSCOPY Cirrhosis Alc oholic (HCC) 02/10/2022 8:45 AM CDT Hypertension Portal (HCC) documented as of this encounter Visit Diagnoses Diagnosis Patent Foramen Ovale (HCC) - Primary Hypertension Portal (HCC) Cirrhosis Alcoholic (HCC) Pretransplant Recipient Evaluation Exam Cirrhosis Alcoholic (HCC) Hypertension Portal (HCC) documented in this encounter Care Teams Cna Hha Relationship Specialty Start Date End Date Elsewhere, Pcp PCP - General Family Medicine 03/10/20 11/30/21 [facility] [place] [facility] 08/25/21 Ervin Schroeder MD Referring Provider Family Medicine 03/24/[address] [place] [phone] documented as of this encounter
--- OUTSIDE RECORDS SUMMARY | 2022-01-31 04:28 | XMS_ITS | Encounter Summary ---
:1990 Author Organization [facility] Address [address] [place] [address] Care Team Providers Name Role Phone Elsewhere, Pcp Primary Care Provider Unavailable Reason for Visit Reason Comments Medication Question Encounter Details Date Type Department Care Team Description 10/13/2021 Nurse Triage Department of [facility] Jolynn Villarreal M edication Question Medicine, [facility], in [place], [place] (Work) [address] [place] [phone] Social History Tobacco Use Types Packs/Day Years [...] do you attend yazidi or Never 2021 zoroastrianism services? 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 as of this encounter Miscellaneous Notes [...] Care Team Description Office Visit Community Internal [facility], 2 Medicine Vernell Perez 300 [facility] [place] [address] Appointment Radiology Matthew Jerome 2 Y, M.B.B.SSuma, Lilian [address] [place] [phone] Hospital Gastroenterology and [facility] 2 Encounter Hepatology Y M.B.BGraeme, Lilian [address] [place] [phone] Surgery Gastroenterology and [facility] ESOPHAG OGASTRODUODENOSCOPY 2 Hepatology Y M.B.B.SSuma, Lilian [address] [place] [phone] Telemedicine Transplant 2 Lab Laboratory Medicine Karin, 2 Adeline Gannon M.D., Ph.D. [address] [place] [address] [phone] Lab Laboratory Medicine Karin, 2 Adeline Gannon M.D., Ph.D. [address] [place] [phone] Office Visit Transplant Karin, 2 Adeline Gannon M.D., Ph.D. [address] [place] [address] [phone] Appointment Radiology Matthew Jerome 2 Y, M.B.B.SSuma, Lilian [address] [place] [phone] Appointment Gastroenterology and [place], 2 Hepatology Yue Burciaga M.D. [address] [place] [address] Office Visit Gastroenterology and Matthew Jerome 2 Hepatology Joshua RodriguezBSumaBLilian Bedolla [address] [place] [phone] Appointment Radiology LuisMatthew abdul 2 YJoshuaB.BGraeme, Lilian [address] [place] [phone] Scheduled Procedures Name Priority Associated Diagnoses Date/Time ESOPHAGOGASTRODUODENOSCOPY Cirrhosis Alc oholic (HCC) 02/10/2022 8:45 AM CDT Hypertension Portal (HCC) documented as of this encounter Visit Diagnoses Not on filedocumented in this encounter Additional Health Concerns Assessment Noted Time PHQ-9 Depression Total Score: 10 10/06/2021 5:00 PM CD T documented as of this encounter Care Teams Patient Coordinator Front Desk Relationship Specialty Start Date End Date Elsewhere, Pcp PCP - General Family Medicine 03/10/20 11/30/21 [facility] [place] [facility] 08/25/21 Ervin Schroeder MD Referring Provider Family Medicine 03/24/[address] [place] [address] documented as of this encounter
--- OUTSIDE RECORDS SUMMARY | 2022-01-31 04:28 | XMS_ITS | Encounter Summary ---
:1990 Author Organization [facility] Address [address] [place] [address] Care Team Providers Name Role Phone Elsewhere, Pcp Primary Care Provider Unavailable Reason for Referral Transplant (Routine) - Closed Specialty Diagnoses / Procedures Referred By Contact Refer red To Contact Transplant Surgery / Adeline Frazier [facility] Dixie Gannon M.D., Ph.D. [address] [place] [phone] Referral ID Status Reason Start Date Expiration Date Visits Requ ested Visits Authorized [id number] Closed 10/10/2021 10/10/2022 1 1 Reason for Visit Transplant (Routine) - Closed Specialty Diagnoses / Procedures Referred By Contact Refer red To Contact Transplant Surgery / Diagnoses Cirrhosis Alcoholic (HCC) Abnormal Liver Function Test Ascites Pretransplant Recipient Evaluation Exam Preoperative Exam Warren Hernández [facility] Transplant Lilian, M.P.H. [address] [place] [address] Referral ID Status Reason Start Date Expiration Date Visits Requ ested Visits Authorized [id number] Closed 08/25/2021 08/25/2022 1 1 Encounter Details Date Type Department Care Team Description 10/10/2021 Telemedicine Warren Carter M.D., M.P.H. [address] [place] [address] [phone] Alcohol Moderate Or Severe Use Disorder (Dependence) Uncomplicated (HCC) (Primary Dx); [facility] Cannabis Use Unspecified Uncomplicated; Transplantation and Long Ter m Use Of Opiate Analgesic; Clinical Regeneration in [place] ot[place] Dependence Cigarettes; [place], [place] Mood Disorder (HCC); [address] [place] [address] Anxiety Disorder Unspecified ; [place] [phone] Eating Disorder; [phone] Hepatic Encepha lopathy Without Coma (HCC); Chronic [...] do you attend judaism or Never 2021 orthodoxy services? 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 - 10/10/2021 8:00 AM CDT Service Date: 10/10/21 DEMOGRAPHICS Patient: Catia Carias Date of : 1990 Age: 31 y.o. Gender: female Address: [address] [place] [phone] Referral source: Liver Transplant Team. Consult conducted via real-time audio/video technology by Dr. Marva Frazier and Zenobia Hollingsworth MA, [facility] in [facility] to the patient in patient's home. CIRCUMSTANCES OF SERVICE INITIATION / REASON FOR REFERRAL Pre-Liver transplant addiction psychiatry evaluation. HISTORY OF PRESENT ILLNESS Ms. Catia Bourgeois is??a very pleasant 31 y.o. partnered female under consideration for liver transplantation. The patient has a history of anxiety, depression, eating disorder and chronic pain. She was previously seen by Radhames Neumann, Ph.D., L.P. in [facility] (Pain [facility]ati abilitation) on 10/06/2021 [...] in the past 30 days? No. OTHER Milp-jfu-Cjsxpls: No. Other: No. Compulsive behaviors: No history [...] visit. SOCIAL HISTORY provided by Joel Tan [facility] Pager: [phone] note dated 09/29/2021. Today, the information below was reviewed, verified and updated with the patient. Family of Origin: Family of origin: The patient was raised in [place], [place]. Her parents when she was 20 years old. Her mother remarried. The patient calls her step- father, Siva, her bonus father. The patient's mother and step-father live in [place], [place]. The patient's father did not remarry. He lives in [place], [place], which is 10-12 minutes from the [...] Degree. The patient has her associates of [employer] degree in photography. Employment: Disabled: The patient was previously worked at [employer] in [place] until January 2021 when she became ill. History: No background. Spirituality / Shinto / Culture: Describe spiritual beliefs: Patient does not identify with any orthodoxy or spiritual beliefs. Cultural background: White [1] [...] by history; currently medicinal cannabis use #3 Care Home Use Of Opiate Analgesic #4 Nicotine Dependence [...] management per Radhames Neumann, Ph.D., L.P. in [facility] (Pain Rehabilitation), 10/06/2021: - virtual [...] in the patient's local community and at [facility]. - A handout about accessing online recovery meetings such as AA, NA, Pump!, etc. - A set of forms to [...] of liver decompensation - inpatient hospitalization at [facility] 03/2021; MELD-Na score: 32 at 09/30/2021 4. [...] records, discussing case with Zenobia Hollingsworth MA, [facility], documenting results of evaluation and treatment recommendations as well as counseling and coordination of care. Collateral information: Collateral information not needed at this time. Electronically signed by: Zenobia Hollingsworth M.A., Nathalie 10/10/21 documented in this encounter Plan of Treatment Upcoming Encounters Date Type Specialty Care Team Description Office Visit Community Internal [facility], 2 Medicine Vernell Perez [address] [place] [address] [phone] [facility] 2 YTyrell M.D. [address] [place] [address] [phone] G[address]ology and [facility] 2 Encounter Hepatology Tyrell Rodriguez, Lilian [address] [place] [phone] [facility] ESOPHAG OGASTRODUODENOSCOPY 2 Hepatology YVikBGraeme, Lilian [address] [place] [phone] Telemedicine Transplant 2 Lab Laboratory Medicine Karin, Olinda Gannon M.D., Ph.D. [address] [place] [address] [phone] Lab Laboratory Medicine Olinda Frazier M.D., Ph.D. [address] [place] [phone] Office Visit Transplant Karin, 2 Adeline Gannon M.D., Ph.D. [address] [place] [phone] Appointment Radiology Matthew Jerome 2 YJoshuaB.B.SSuma, MJules [address] [place] [address] [phone] Appointment Gastroenterology and [place], 2 Hepatology Yue Burciaga M.D. [address] [place] [phone] Office Visit Gastroenterology and Matthew Jerome 2 Hepatology Joshua RodriguezB.B.SSuma, MJules [address] [place] [address] [phone] Appointment Radiology Matthew Jerome 2 Y M.B.B.SSuma, MJules [address] [place] [address] [phone] Scheduled Orders Name Type Priority Associated Diagnoses [...] cted: office visit 01/26/2022 (clinic) (Approximate), Expires: 01/10/2023 documented as of this encounter Results (ABNORMAL) Drug Abuse Survey with Confirmation, Urine (12/15/2021 5:58 PM CDT) [facility] Method Time Signature Alcohol Negative Cutoff: [...] Organization Address City/State/ZIP Code Phon e Number [facility] [address] [place] [address] [facility] [place] [address] Laboratory Medicine and Pathology [address] [place] Ethyl Glucuronide Confirmation, Random, Urine (12/15/2021 5:51 PM CDT) [facility] Method Time Signature Ethyl Glucuronide Negative Cutoff: 12/17/2021 [facility] Confirmation, U 250 ng/mL 10:34 AM CDT Ethyl Sulfate Negative Cutoff: 12[facility]17[facility] ng/mL 10:34 AM CDT Ethyl Gluc/Sulfate Negative. 12/17/2021 [facility] Interpretation 10:34 AM CDT Comment: ----ADDITIONAL INFORMATION---- This report is intended for use in clini ada monitoring and management of patients. ??It is not intended for use i n employment-related testing. This test was developed and its performa nce characteristics determined by [facility] in a manner consistent with [...] Organization Address City/State/ZIP Code Phon e Number [facility] [address] [place], [place] [address] [facility] [place] [address] Laboratory Medicine and Pathology [address] [place] Phosphatidylethanol (Peth), whole blood- Sent Out Lab (12/15/2021 5:39 PM CDT) Component Value Ref Range Test Analysis Performed Pathologis t Method Time At Signature Phosphatidylethanol NEGATIVE NEGATIVE 12/26/2021 [facility] (PEth) ng/mL 1:01 PM CDT Comment: Analyzed compound: PEth 16:0/18:1. ? 0-yqncroidg-2-ciluda-ro-whetyfo-3 -phosphoethanol. ? Analysis performed by Liquid Chromatogra akila with ? Tandem Mass Spectrometry (LC/MS/MS). ? [...] and its performa nce characteristics determined by [employer] It has not been c leared or approved by the Food and Drug Administration. Specimen Anatomical Collection Method Collection Time Receive d Time (Source) Location / / Volume Laterality Blood (Blood, 12/15/2021 5:39 PM 12/17/19 8:26 Venous) CDT AM CDT Adeline Frazier M.D., Ph.D. LAB BLOOD NON ADD-ON Performing Organization Address City/State/ZIP Code Phon e Number [employer]. [address] [place] [address] 55 2 [facility] [place] [address] [place] [address] documented in this encounter Visit Diagnoses Diagnosis Alcohol Moderate Or Severe Use Disorder (Dependence) Uncomplicated (HCC) - Primary Cannabis Use Unspecified Uncomplicated Care Home Use Of Opiate Analgesic Nicotine Dependence Cigarettes [...] documented as of this encounter Care Teams Farm Products Shipper Relationship Specialty Start Date End Date Elsewhere, Pcp PCP - General Family Medicine 03/10/20 11/30/21 [facility] [place] [facility] 08/25/21 Ervin Schroeder MD Referring Provider Family Medicine 03/24/[address] [place] [phone] documented as of this encounter
--- OUTSIDE RECORDS SUMMARY | 2022-01-31 04:28 | XMS_ITS | Encounter Summary ---
:1990 Author Organization [facility] Address [address] [place] [address] Care Team Providers Name Role Phone Elsewhere, Pcp Primary Care Provider Unavailable Reason for Visit Transplant (Routine) - Closed Specialty Diagnoses / Procedures Referred By Contact Refer red To Contact Transplant Surgery / Diagnoses Cirrhosis Alcoholic (HCC) Abnormal Liver Function Test Ascites Pretransplant Recipient Evaluation Exam Preoperative Exam [facility] M.P.H[facility] [address] [place] [address] Referral ID Status Reason Start Date Expiration Date Visits Requ ested Visits Authorized [id number] Closed 08/25/2021 08/25/2022 1 1 Encounter Details Date Type Department Care Team Description 10/02/2021 Comprehensive Visit Ramirez Barajas, Cirrhosis Alcoholic (HCC); [facility] Abnormal Liver Function Test; Transplantation and M.Jeri, Ph.D. Ascites; Clinical Regeneration [address] [place] nsplant Recipient Evaluation Exam; in [facility] Preoperative Exam [address] [facility] [phone] Social History Tobacco Use Types Packs/Day Years [...] do you attend druze or Never 2021 roman catholic services? 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 - 10/02/2021 1:00 PM CDT SUBJECTIVE HISTORY OF PRESENT ILLNESS Ms. Carias is a 31-year-old woman from [place], [place], with alcohol- associated cirrhosis. Her disease was diagnosed in fall when she fell ill and was subsequently hospitalized. It appears that several months prior to that, she started to feel more fatigued and perhaps developed encephalopathy. She quit working. She also noticed that she was getting jaundiced in March of 2021. She was hospitalized in [place] and diagnosed with cirrhosis. This is secondary [...] Dinh M.D., Ph.D. CT CT Job ID: [id number]/ documented in this encounter Plan of Treatment Upcoming Encounters Date Type Specialty Care Team Description Office Visit [facility], 2 Medicine Vernell Perez 300 [facility] [address] Appointment Radiology Matthew Jerome 2 Y, M.B.B.Kath, Lilian [address] [place] [phone] Hospital Gastroenterology and [facility] 2 Encounter Hepatology Y MSumaBSumaBGraeme, Lilian [address] [place] [phone] Surgery Gastroenterology and [facility] ESOPHAG OGASTRODUODENOSCOPY 2 Hepatology Y M.B.BGraeme, Lilian [address] [place] [phone] Telemedicine Transplant 2 Lab Laboratory Medicine Karin, 2 Adeline Gannon M.D., Ph.D. [address] [place] [phone] Lab Laboratory Medicine Karin, 2 Adeline Gannon M.D., Ph.D. [address] [place] [address] [phone] Office Visit Transplant Karin, Olinda Gannon M.D., Ph.D. [address] [place] [phone] Appointment Radiology Matthew Jerome 2 Y, M.B.B.SSuma, Lilian [address] [place] [phone] Appointment Gastroenterology and [place], 2 Hepatology Yue Burciaga M.D. [address] [place] [phone] Office Visit Gastroenterology and LuisMatthew abdul 2 Hepatology Tyrell Rodriguez M.D. [address] [place] [address] [phone] Appointment Radiology LuisMatthew abdul 2 YTyrell M.D. [address] [place] [phone] Scheduled Procedures Name Priority Associated Diagnoses Date/Time ESOPHAGOGASTRODUODENOSCOPY Cirrhosis Alc oholic (HCC) 02/10/2022 8:45 AM CDT Hypertension Portal (HCC) documented as of this encounter Visit Diagnoses Diagnosis Cirrhosis Alcoholic (HCC) Abnormal Liver Function Test Ascites Pretransplant Recipient Evaluation Exam Preoperative Exam Cirrhosis Alcoholic (HCC) Hypertension Portal (HCC) documented in this encounter Care Teams Lead Blender Relationship Specialty Start Date End Date Elsewhere, Pcp PCP - General Family Medicine 03/10/20 11/30/21 [facility] [place] [facility] 08/25/21 Ervin Schroeder MD Referring Provider Family Medicine 03/24/[address] [place] [phone] documented as of this encounter
--- OUTSIDE RECORDS SUMMARY | 2022-01-31 04:28 | XMS_ITS | Encounter Summary ---
:1990 Author Organization [facility] Address [address] [place] [address] Care Team Providers Name Role Phone Elsewhere, Pcp Primary Care Provider Unavailable Encounter Details Date Type Department Care Team Description 10/07/2021 Hospital Encounter Department of Rut Hernández s Alcoholic (HCC); Pulmonary Medicine Warren Schaefer M.D., Abnorm al Liver Function Test; in [facility] Ascites; [place] [address] [place] [address] Pretransplant Recipient Evaluation Exam; 1025 [place], [place] [phone] Social History Tobacco Use Types Packs/Day [...] do you attend scientology or Never 2021 catholic services? Do you belong to any clubs or No 07/17/2021 organizations such as scientology groups, unions, [employer] or athletic groups, or school groups? 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 ergocalciferol Take 50,000 Units by 0 04/01/2021 [...] 1 tablet (400 mg 60 tablet 1 12/02/2021 (MAG-OX) 400 mg (241.3 total) by mouth 2 mg magnesium) tablet (two) times a day before breakfast and dinner. ondansetron ODT Dissolve 1 tablet in 0 04/23/2021 01/14/2022 (ZOFRAN-ODT) 8 mg the mouth 3 (three) disintegrating tablet times a day as needed for nausea or vomiting. oxyCODONE (ROXICODONE) Take 5 mg by mouth 3 0 11/11/2021 5 mg immediate release (three) times a day tablet as needed for pain. promethazine Take 25 mg by mouth 0 05/27/2021 04/2022 (PHENERGAN) 25 mg every 6 (six) hours [...] Care Team Description Office Visit Community Internal [facility], 2 Medicine Vernell Perez 300 [place] [phone] Appointment Radiology Matthew Jerome 2 YTyrell M.D. [address] [place] [phone] [facility] Gastroenterology and Matthew Jerome 2 Encounter Hepatology Tyrell Rodriguez M.D. [address] [place] [phone] Surgery Gastroenterology and Matthew Jerome ESOPHAG OGASTRODUODENOSCOPY 2 Hepatology Joshua RodriguezBSumaBLilian Bedolla [address] [place] [phone] Telemedicine Transplant 2 Lab Laboratory Medicine Olinda Frazier M.D., Ph.D. [address] [place] [phone] Lab Laboratory Medicine Olinda Frazier M.D., Ph.D. [address] [place] [phone] Office Visit Transplant Karin, Olinda Gannon M.D., Ph.D. [address] [place] [phone] Appointment Radiology Matthew Jerome 2 YVikBSumaSSuma, Lilian [address] [place] [phone] Appointment Gastroenterology and Adrianne, 2 Hepatology Yue Burciaga M.D. [address] [place] [phone] Office Visit Gastroenterology and Matthew Jerome 2 Hepatology Joshua RodriguezBSumaBSumaSLilian Moise [address] [place] [phone] Appointment Radiology Matthew Jerome 2 YJoshuaB.B.SLilian Moise [address] [place] [phone] Scheduled Procedures Name Priority Associated Diagnoses Date/Time [...] CDT) P athologist Signature FVC 4.04 L [facility] SUITE FVC% 111 % [facility] SUITE FVCLLN 2.88 L [facility] SUITE FEV1 3.62 L [facility] SUITE FEV1% 118 % [facility] SUITE EMU1CSF 2.45 L [facility] SUITE FEV1/FVC 90 % [facility] SUITE FEV1/FVCLLN 73 % [facility] SUITE FEF 25-75 5.30 L/sec [facility] SUITE JNV15-92% 154 % [facility] SUITE KBA95-97SPN 2.20 L/sec [facility] SVC 4.19 L [facility] SUITE RV 1.17 L [place] SUITE RVULN 2.33 L [facility] SUITE TLC 5.36 L [facility] SUITE TLC% 111 % [facility] SUITE TLCLLN 3.47 L [facility] SUITE RV/TLC 22 % [place] SUITE RV/TLC% 72 % [place] SUITE RV/TLCuln 44 % [facility] SUITE DLCO 16.63 ml/min/mmHg [place] SUITE DLCO% 77 % [facility] SUITE DLCOlln 15.76 ml/min/mmHg [place] SUITE DLCOc 20.09 ml/min/mmHg [place] SUITE DLCOc% 94 % [place] SUITE VA 5.32 L [facility] SUITE VA% 115 % [facility] SUITE VAlln 3.76 L [facility] SUITE Height 159.00 [facility] Weight in Kg 59.[address] [facility] BMI 23.6 [facility] Specimen (Source) Anatomical Collection Method Collection Time Re ceived Time Location / / Volume Laterality 10/07/2021 2:32 PM CDT Impressions [facility] - 10/10/2021 8:25 AM C DT TECHNICAL [...] Organization Address City/State/ZIP Code Phon e Number [place] [address] [place] [address] documented in this encounter Visit Diagnoses Diagnosis Cirrhosis Alcoholic (HCC) Abnormal Liver Function Test Ascites Pretransplant Recipient Evaluation Exam Preoperative Exam Cirrhosis Alcoholic (HCC) Hypertension Portal (HCC) documented in this encounter Additional Health Concerns Assessment Noted Time PHQ-9 Depression Total Score: 10 10/06/2021 5:00 PM CD T documented as of this encounter Care Teams Sanforizing Machine Operator Relationship Specialty Start Date End Date Elsewhere, Pcp PCP - General Family Medicine 03/10/20 11/30/21 [facility] [place] lab 08/25/21 Ervin Schroeder MD Referring Provider Family Medicine 03/24/[address] [place] [phone] documented as of this encounter
--- OUTSIDE RECORDS SUMMARY | 2022-01-31 04:28 | XMS_ITS | Encounter Summary ---
:1990 Author Organization [facility] Address [address] [place] [address] Care Team Providers Name Role Phone Elsewhere, Pcp Primary Care Provider Unavailable Reason for Referral Behavioral Health (Routine) - Canceled Specialty Diagnoses / Procedures Referred By Contact Refer red To Contact Diagnoses Pain Leg Bilateral Radhames Neumann, [facility] Procedures Complex persistent pain program Ph.D., L.P. [address] [place] [phone] Referral ID Status Reason Start Date Expiration Date Visits V isits Requested Authorized [id number] Canceled 10/06/2021 10/06/2022 1 1 Reason for Visit Transplant (Routine) - Authorized Specialty Diagnoses / Procedures Referred By Contact Refer red To Contact Transplant Surgery / Diagnoses Cirrhosis Alcoholic (HCC) Abnormal Liver Function Test Ascites Pretransplant Recipient Evaluation Exam Preoperative Exam Warren Hernández, [facility] Transplant M.Jeri, M.P.H. [address] [place] [address] Referral ID Status Reason Start Date Expiration Date Visits V isisocrates Requested Authorized [id number] Authorized 08/25/2021 08/25/2022 1 1 Encounter Details Date Type Department Care Team Description 10/06/2021 Comprehensive Visit Warren Middleton M.D., M.P.H. [address] [place] [address] Pain Leg Bilateral (Primary Dx); [facility] Radhames Neumann, Ph.D., L.P. [address] [place] [phone] Cirrhosis Alcoholic (HCC); Transplantation and Abnormal Liver Function Test; Clinical Regeneration Ascite s; in [place], Pretransplant Recipient Evaluation Exam; [place] Preoperative Exam [address] [place] [phone] Social History Tobacco Use Types [...] do you attend mormonism or Never 2021 sabianist services? 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 [...] at age 19 Overuse of prescribed or tyxc-mqt-vpveafs medication: none. She notes she never runs [...] of hurting yourself in some way.: 0 PAPLE-7 Total Score (max 21): 11 is consistent [...] Type Specialty Care Team Description Office Visit [facility], 2 Medicine Vernell Perez [address] [place] [address] [phone] Appointment Radiology Matthew Jerome 2 Tyrell Rodriguez, Lilian 1025 [place] [phone] Hospital Gastroenterology and Matthew Jerome 2 Encounter Hepatology Tyrell Rodriguez, Lilian 10[address] [place] [phone] Surgery Gastroenterology and Matthew Jerome ESOPHAG OGASTRODUODENOSCOPY 2 Hepatology Vik RodriguezBLilian Bedolla [address] [place] [phone] Telemedicine Transplant 2 Lab Laboratory Medicine Karin, 2 Adeline Gannon M.D., Ph.D. [address] [place] [phone] Lab Laboratory Medicine Karin, 2 Adeline Gannon M.D., Ph.D. [address] [place] [address] [phone] Office Visit Transplant Karin, 2 Adeline Gannon M.D., Ph.D. [address] [place] [phone] Appointment Radiology Matthew Jermoe 2 YElizabeth.B.B.SSuma, Lilian [address] [place] [phone] Appointment Gastroenterology and Adrianne, 2 Hepatology Yue Burciaga M.D. [address] [place] [phone] Office Visit Gastroenterology and Matthew Jerome 2 Hepatology Joshua RodriguezB.B.SLilian Moise [address] [place] [address] [phone] Appointment Radiology Matthew Jerome 2 Y M.B.B.SLilian Moise [address] [place] [phone] Scheduled Procedures Name Priority Associated Diagnoses [...] documented as of this encounter Care Teams Pharmacy Operations Specialist Relationship Specialty Start Date End Date Elsewhere, Pcp PCP - General Family Medicine 03/10/20 11/30/21 [facility] [place] lab 08/25/21 Ervin Schroeder MD Referring Provider Family Medicine 03/24/[address] [place] [phone] documented as of this encounter
--- OUTSIDE RECORDS SUMMARY | 2022-01-31 04:28 | XMS_ITS | Encounter Summary ---
:1990 Author Organization [facility] Address [address] [place] [address] Care Team Providers Name Role Phone Elsewhere, Pcp Primary Care Provider Unavailable Encounter Details Date Type Department Care Team Description 10/08/2021 Clinical Communication Department of [facility], Gastroenterology in [place], [place] L.P.N. 1025 [facility] 1025 [place] [address] [place], [place] [phone] Social History Tobacco Use Types Packs/Day [...] do you attend lutheran or Never 2021 synagogue services? 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 [address] [place] [phone] Telemedicine Transplant 2 Lab Laboratory Medicine Olinda Frazier M.D., Ph.D. [address] [place] [phone] Lab Laboratory Medicine Olinda Frazier M.D., Ph.D. [address] [place] [phone] Office Visit Transplant Olinda Frazier M.D., Ph.D. [address] [place] [phone] Appointment Radiology Matthew Jerome 2 YJoshuaBSumaBSumaSLilian Moise [address] [place] [phone] Appointment Gastroenterology and Adrianne, 2 Hepatology Yue Burciaga M.D. [address] [place] [phone] Office Visit Gastroenterology and LuisMatthew abdul 2 Hepatology YTyrell M.D. 10[address] [place] [phone] Appointment Radiology Queenie Matthew 2 Tyrell Rodriguez M.D. [address] [place] [phone] Scheduled Procedures Name Priority Associated Diagnoses Date/Time ESOPHAGOGASTRODUODENOSCOPY Cirrhosis Alc oholic (HCC) 02/10/2022 8:45 AM CDT Hypertension Portal (HCC) documented as of this encounter Visit Diagnoses Not on filedocumented in this encounter Additional Health Concerns Assessment Noted Time PHQ-9 Depression Total Score: 10 10/06/2021 5:00 PM CD T documented as of this encounter Care Teams Broadcast Field Supervisor Relationship Specialty Start Date End Date Elsewhere, Pcp PCP - General Family Medicine 03/10/20 11/30/21 [facility] [place] lab 08/25/21 Ervin Schroeder MD Referring Provider Family Medicine 03/24/[address] [place] [phone] documented as of this encounter
--- OUTSIDE RECORDS SUMMARY | 2022-01-31 04:28 | XMS_ITS | Encounter Summary ---
:1990 Author Organization [facility] Address [address] [place] [address] Care Team Providers Name Role Phone Elsewhere, Pcp Primary Care Provider Unavailable Reason for Visit Reason Comments Appointment [facility] FA Encounter Details Date Type Department Care Team Description 10/10/2021 Clinical Ramirez Barajas, Camron coreas ([facility] Communication Center for PRANEETH Rowland) Transplantation and Lil[place], Ph.D. Clinical [facility] [address] [facility] [address] [facility] [phone] Social History Tobacco Use Types Packs/Day Years [...] do you attend caodaism or Never 2021 rastafari services? Do you belong to any clubs or No 07/17/2021 organizations such as caodaism groups, unions, fra[employer] or athletic groups, or school groups? 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 [...] Internal [place], 2 Medicine Vernell Perez 300 [place] [phone] Appointment Radiology Matthew Jerome 2 Y, MSumaBSumaBGraeme, Lilian [address] [place] [phone] Hospital Gastroenterology and [facility] 2 Encounter Hepatology YJoshuaBJhoan, Lilian [address] [place] [phone] Surgery Gastroenterology and [facility] ESOPHAG OGASTRODUODENOSCOPY 2 Hepatology YJoshuaB.BGraeme, Lilian [address] [place] [phone] Telemedicine Transplant 2 Lab Laboratory Medicine Karin, 2 Adeline Gannon M.D., Ph.D. [address] [place] [phone] Lab Laboratory Medicine Karin, 2 Adeline Gannon M.D., Ph.D. [address] [place] [phone] Office Visit Transplant Karin, 2 Adeline Gannon M.D., Ph.D. [address] [place] [phone] Appointment Radiology Matthew Jerome 2 Y, M.B.B.Kath, Lilian [address] [place] [phone] Appointment Gastroenterology and Adrianne, 2 Hepatology Yue Burciaga M.D. [address] [place] [phone] Office Visit Gastroenterology and Matthew Jerome 2 Hepatology Joshua RodriguezBSumaBLilian Bedolla 10[address] [place] [phone] Appointment Radiology LuisMatthew abdul 2 YJoshuaB.BLilian Bedolla [address] [place] [phone] Scheduled Procedures Name Priority Associated Diagnoses Date/Time ESOPHAGOGASTRODUODENOSCOPY Cirrhosis Alc oholic (HCC) 02/10/2022 8:45 AM CDT Hypertension Portal (HCC) documented as of this encounter Visit Diagnoses Not on filedocumented in this encounter Additional Health Concerns Assessment Noted Time PHQ-9 Depression Total Score: 10 10/06/2021 5:00 PM CD T documented as of this encounter Care Teams Cable Television Installer Relationship Specialty Start Date End Date Elsewhere, Pcp PCP - General Family Medicine 03/10/20 11/30/21 [facility] [place] lab 08/25/21 Ervin Schroeder MD Referring Provider Family Medicine 03/24/[address] [place] [phone] documented as of this encounter
--- OUTSIDE RECORDS SUMMARY | 2022-01-31 04:28 | XMS_ITS | Encounter Summary ---
:1990 Author Organization [facility] Address [address] [place] [address] Care Team Providers Name Role Phone Elsewhere, Pcp Primary Care Provider Unavailable Reason for Visit Transplant (Routine) - Closed Specialty Diagnoses / Procedures Referred By Contact Refer red To Contact Transplant Surgery / Diagnoses Cirrhosis Alcoholic (HCC) Abnormal Liver Function Test Ascites Pretransplant Recipient Evaluation Exam Preoperative Exam Warren Hernández, [facility] Transplant M.D., M.P.H. [address] [place] [address] Referral ID Status Reason Start Date Expiration Date Visits Requ ested Visits Authorized [id number] Closed 08/25/2021 08/25/2022 1 1 Encounter Details Date Type Department Care Team Description 10/02/2021 Comprehensive Visit Ramirez Adler, Cirrhosis Alcoholic (HCC); [facility] for [place], Abnormal Liver Function Test; Transplantation and M.D. Ascites; Clinical Regeneration [address] [place] [address] Pretransplant Recipient Evaluation Exam; in [place], [place] Preoperative Exam [place] [id number] [place] [address] [place], [place] (Work) [address] [phone] Social History Tobacco Use Types Packs/Day Years [...] do you attend synagogue or Never 2021 mandaeism services? 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, Medicine Vernell Perez [address] [place] [phone] Appointment Radiology Matthew Jerome 2 Tyrell Rodriguez M.D. 10[address] [place] [phone] [facility] Gastroenterology and Mousa, Matthew 2 Encounter Hepatology Tyrell Rodriguez M.D. 10[address] [place] [phone] Surgery Gastroenterology and Matthew Jerome ESOPHAG OGASTRODUODENOSCOPY 2 Hepatology Tyrell Rodriguez M.D. 10[address] [place] [phone] Telemedicine Transplant 2 Lab Laboratory Medicine aKrin, 2 Adeline Gannon M.D., Ph.D. [address] [place] [phone] Lab Laboratory Medicine Karin, 2 Adeline Gannon M.D., Ph.D. [address] [place] [phone] Office Visit Transplant Karin, 2 Adeline Gannon M.D., Ph.D. [address] [place] [phone] Appointment Radiology Matthew Jerome 2 Tyrell Rodriguez M.D. [facility] [place] [phone] Appointment Gastroenterology and Adrianne, 2 Hepatology Yue Burciaga M.D. [address] [place] [phone] Office Visit Gastroenterology and LuischantellMatthew 2 Hepatology Vik RodriguezBLilian Bedolla [address] [place] [phone] Appointment Radiology Matthew Jerome 2 YTyrell M.D. [address] [place] [phone] Scheduled Procedures Name Priority Associated Diagnoses Date/Time ESOPHAGOGASTRODUODENOSCOPY Cirrhosis Alc oholic (HCC) 02/10/2022 8:45 AM CDT Hypertension Portal (HCC) documented as of this encounter Visit Diagnoses Diagnosis Cirrhosis Alcoholic (HCC) Abnormal Liver Function Test Ascites Pretransplant Recipient Evaluation Exam Preoperative Exam Cirrhosis Alcoholic (HCC) Hypertension Portal (HCC) documented in this encounter Care Teams School Librarian Relationship Specialty Start Date End Date Elsewhere, Pcp PCP - General Family Medicine 03/10/20 11/30/21 [facility] [place] lab 08/25/21 Ervin Schroeder MD Referring Provider Family Medicine 03/24/[address] [place] [address] documented as of this encounter
--- OUTSIDE RECORDS SUMMARY | 2022-01-31 04:28 | XMS_ITS | Encounter Summary ---
:1990 Author Organization [facility] Address [address] [place] [address] Care Team Providers Name Role Phone Elsewhere, Pcp Primary Care Provider Unavailable Reason for Referral Outpatient (Routine) - Closed Specialty Diagnoses / Procedures Referred By Contact Refer red To Contact Diagnoses Cirrhosis Alcoholic (HCC) Abnormal Liver Function Test Ascites Pretransplant Recipient Evaluation Exam Preoperative Exam Warren Hernández M.D., [facility] [place] Procedures BMD Bone Density Spine Hips M.P.H. [address] [place] [address] Referral ID Status Reason Start Date Expiration Date Visits Requ ested Visits Authorized [id number] Closed 08/25/2021 08/25/2022 1 1 Reason for Visit Outpatient (Routine) - Closed Specialty Diagnoses / Procedures Referred By Contact Refer red To Contact Diagnoses Cirrhosis Alcoholic (HCC) Abnormal Liver Function Test Ascites Pretransplant Recipient Evaluation Exam Preoperative Exam Warren Hernández M.D., [facility] Region Procedures BMD Bone Density Spine Hips M.P.H. [address] [place] [address] Referral ID Status Reason Start Date Expiration Date Visits Requ ested Visits Authorized [id number] Closed 08/25/2021 08/25/2022 1 1 Encounter Details Date Type Department Care Team Description 10/09/2021 Hospital Encounter Department of Trav Hernándezosi s Alcoholic (HCC); Radiology, Warren Schaefer M.D., Abnormal Angelica er Function Test; [facility], M.P.H. Ascites; in [place], [facility] [address] [facility] Pretransplant Recipient Evaluation Exam; [place], [place] Preoperative Exam [address] [address] [place] [phone] [place], [place] (Work) [address] Social History Tobacco Use [...] do you attend jain or Never 2021 advent services? 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 Medications at [...] Community Internal Carlos, 2 Medicine Vernell Perez [address] [place] [phone] [facility]ment [facility] 2 YJoshuaB.B.Kath, Lilian [address] [place] [phone] Hospital Gastroenterology and [facility] 2 Encounter Hepatology Joshua RodriguezBSumaBLilian Bedolla [address] [place] [phone] Surgery Gastroenterology and [facility] ESOPHAG OGASTRODUODENOSCOPY 2 Hepatology YJoshuaB.B.SSuma, Lilian [address] [place] [phone] Telemedicine Transplant 2 Lab Laboratory Medicine Olinda Frazier M.D., Ph.D. [address] [place] [phone] Lab Laboratory Medicine Olinda Frazier M.D., Ph.D. [address] [place] [phone] Office Visit Transplant Olinda Frazier M.D., Ph.D. [address] [place] [phone] Appointment Radiology Matthew Jerome 2 YTyrell M.D. [address] [place] [phone] Appointment Gastroenterology and Adrianne, 2 Hepatology Yue Burciaga M.D. [address] [place] [address] Office Visit Gastroenterology and Matthew Jerome 2 Hepatology Tyrell Rodriguez M.D. [address] [place] [phone] Appointment Radiology Matthew Jerome 2 YTyrell M.D. [address] [place] [phone] Scheduled Procedures Name Priority Associated Diagnoses Date/Time [...] Mineral Density (BMD) analysis perf ormed on [employer] with serial number [id number]. ? FINDINGS: Left Hip: Femur Neck: BMD [...] including images and graphs, is available in [employer]. In the absence of other causes of [...] Mineral Density (BMD) analysis perf ormed on [employer] with serial number [id number]. FINDINGS: Left Hip: Femur Neck: BMD = [...] documented as of this encounter Care Teams Nougat Cutter Machine Relationship Specialty Start Date End Date Elsewhere, Pcp PCP - General Family Medicine 03/10/20 11/30/21 [facility] [place] [facility] 08/25/21 Ervin Schroeder MD Referring Provider Family Medicine 03/24/[address] [place] [address] documented as of this encounter
--- OUTSIDE RECORDS SUMMARY | 2022-01-31 04:28 | XMS_ITS | Encounter Summary ---
:1990 Author Organization [facility] Address [address] [place] [address] Care Team Providers Name Role Phone Elsewhere, Pcp Primary Care Provider Unavailable Reason for Referral Outpatient (Routine) - Pending Review Specialty Diagnoses / Procedures Referred By Contact Refer red To Contact Migue Justice M .D. [facility] [address] [place] [phone] Referral ID Status Reason Start Date Expiration Date Visits V isits Requested Authorized [id number] Pending 10/01/2021 10/01/2022 1 1 Review Scheduling Instructions Calendar: TXP RESEARCH ROCH 10 [TXP ROCH] Floor: [place] 10a Encounter Details Date Type Department Care Team Description 10/01/2021 Orders Only Ramirez diaz [facility]ardo Walls for Transplantation and [address] [place] [address] Clinical Regeneration in [place], [place] [phone] [place] [phone] Social History Tobacco Use Types Packs/Day [...] do you attend zoroastrian or Never 2021 latter day services? 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 Plan of Treatment Upcoming Encounters Date Type Specialty Care Team Description Office Visit Community Internal Neda, 2 Medicine Vernell Perez [address] [place] [address] [place] [phone] Appointment Radiology Matthew Jerome 2 Y, M.B.B.SSuma, Lilian [address] [place] [phone] Hospital Gastroenterology and [facility] 2 Encounter Hepatology Joshua RodriguezBSumaBLilian Bedolla [address] [place] [phone] Surgery Gastroenterology and Mousa, Matthew ESOPHAG OGASTRODUODENOSCOPY 2 Hepatology Joshua RodriguezB.BSumaSSuma, Lilian [address] [place] [phone] Telemedicine Transplant 2 Lab Laboratory Medicine Karin, 2 Adeline Gannon M.D., Ph.D. [address] [place] [phone] Lab Laboratory Medicine Karin, 2 dAeline Gannon M.D., Ph.D. [address] [place] [phone] Office Visit Transplant Karin, 2 Adeline Gannon M.D., Ph.D. [address] [place] [phone] Appointment Radiology LuisMatthew abdul 2 Y M.B.B.SSuma, Lilian [address] [place] [phone] Appointment Gastroenterology and Adrianne, 2 Hepatology Yue Burciaga M.D. [address] [place] [phone] Office Visit Gastroenterology and Matthew Jerome 2 Hepatology Tyrell Rodriguez M.D. [address] [place] [phone] Appointment Radiology LuisMatthew abdul 2 Tyrell Rodriguez M.D. [address] [place] [phone] Scheduled Procedures Name Priority Associated Diagnoses Date/Time ESOPHAGOGASTRODUODENOSCOPY Cirrhosis Alc oholic (HCC) 02/10/2022 8:45 AM CDT Hypertension Portal (HCC) Scheduled Referrals Name Type Priority Associated Order Schedule Diagnoses Research Study Outpatient Referral Routine Expect ed: Coordinator office 2 visit (clinic) (Approximate) , Expires: 01/01/2023 documented as of this encounter Visit Diagnoses Not on filedocumented in this encounter Care Teams Imaging Science Professor Relationship Specialty Start Date End Date Elsewhere, Pcp PCP - General Family Medicine 03/10/20 11/30/21 [facility] [place] [facility] 08/25/21 Ervin Schroeder MD Referring Provider Family Medicine 03/24/[address] [place] [address] documented as of this encounter
--- OUTSIDE RECORDS SUMMARY | 2022-01-31 04:28 | XMS_ITS | Encounter Summary ---
:1990 Author Organization [facility] Address [address] [place] [address] Care Team Providers Name Role Phone Elsewhere, Pcp Primary Care Provider Unavailable Reason for Referral Outpatient (Routine) - Closed Specialty Diagnoses / Procedures Referred By Contact Refer red To Contact Diagnoses Cirrhosis Alcoholic (HCC) Abnormal Liver Function Test Ascites Pretransplant Recipient Evaluation Exam Preoperative Exam Warren Hernández M.D., [facility] Procedures Short renal clearance: Iothalamate (Renal Studies Unit) M.P.H. [address] [place] [address] Referral ID Status Reason Start Date Expiration Date Visits Requ ested Visits Authorized [id number] Closed 08/25/2021 08/25/2022 1 1 Reason for Visit Outpatient (Routine) - Closed Specialty Diagnoses / Procedures Referred By Contact Refer red To Contact Diagnoses Cirrhosis Alcoholic (HCC) Abnormal Liver Function Test Ascites Pretransplant Recipient Evaluation Exam Preoperative Exam Warren Hernández M.D., [facility] Procedures Short renal clearance: Iothalamate (Renal Studies Unit) M.P.H. [address] [place] [address] Referral ID Status Reason Start Date Expiration Date Visits Requ ested Visits Authorized [id number] Closed 08/25/2021 08/25/2022 1 1 Encounter Details Date Type Department Care Team Description 10/03/2021 Hospital Encounter Department of Trav Hernándezosi s Alcoholic (HCC); Laboratory Medicine Warren Schaefer M.D., Abnor mal Liver Function Test; and Pathology, M.P.H. Ascites; [place] [address] [place] [address] Pretransplant Recipient Evaluation Exam; Building, in [place], [place] Preoperative E xam [address] [phone] [address] [facility] (Work) [place], [place] [phone] (Fax) [phone] Social History Tobacco Use Types Packs/Day Years [...] do you attend mu-ism or Never 2021 christianity services? Do you [...] highest level of school Associate degree: ruth lucero, 07/16/2021 you have completed or the highest technical, or vocational p rolf degree you have received? 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 Last [...] Visit [facility], 2 Medicine Vernell Perez [address] [place] [address] [phone] Appointment Radiology [facility] 2 Y, M.B.B.S., MJules [address] [place] [phone] Hospital Gastroenterology and [facility] 2 Encounter Hepatology Elizabeth Rodriguez.B.B.SSuma, MJules [address] [place] [phone] Surgery Gastroenterology and [facility] ESOPHAG OGASTRODUODENOSCOPY 2 Hepatology Y M.B.B.S., MJules [address] [place] [phone] Telemedicine Transplant 2 Lab Laboratory Medicine Karin, 2 Adeline Gannon M.D., Ph.D. [address] [place] [phone] Lab Laboratory Medicine Karin, Olinda Adeline Gannon M.D., Ph.D. [address] [place] [phone] Office Visit Transplant Karin, Olinda Adeline Gannon M.D., Ph.D. [address] [place] [phone] Appointment Radiology Matthew Jerome 2 YElizabeth.B.B.SSuma, Lilian [address] [place] [phone] Appointment Gastroenterology demian Silver 2 Hepatology Yue Burciaga M.D. [address] [place] [phone] Office Visit Gastroenterology and Matthew Jerome 2 Hepatology Jennifer M.B.B.SLilian Moise [address] [place] [phone] Appointment Radiology Matthew Jerome 2 Y M.B.B.SLilian Moise [address] [place] [phone] Scheduled Orders Name Type Priority Associated [...] and its performa nce characteristics determined by [facility] in a manner consistent with CLIA requirements. This test has not been cleared or approved by the [place] d and Drug Administration. Specimen Anatomical Collection Method Collection Time Receive d Time (Source) Location / / Volume Laterality Varies (Blood, 10/03/2021 11:18 2 Venous) AM CDT 12:59 PM CDT Narrative [facility] - 10/06/2021 2:59 PM CDT Specimen Information: Specimen ID: [id number] Specimen Type: Varies Specimen Collection Start Date: 11:18 AM Specimen Received Date: 10/03/2021 12:59 PM Specimen ID: [id number] Specimen Type: Varies Specimen Collection Start Date: 12:07 PM Specimen Received Date: 10/03/2021 12:59 PM Specimen ID: [id number] Specimen Type: Varies Specimen Collection Start Date: 12:41 PM Specimen Received Date: 10/03/2021 12:59 PM Specimen ID: [id number] Specimen Type: Varies Specimen Collection Start Date: 12:10 PM Specimen Received Date: 10/03/2021 12:59 PM Specimen ID: [id number] Specimen Type: Varies Specimen Collection Start Date: 12:43 PM Specimen Received Date: 10/03/2021 12:59 PM Warren Hernández M.D., M.P.H. LAB BLOOD NON ADD-ON Performing Organization Address City/State/ZIP Code Phon e Number [facility] - [address] [place], [place] [address] [place] [address] [facility] [address] documented in this [...] dose documented in this encounter Care Teams Liaison Officer Relationship Specialty Start Date End Date Elsewhere, Pcp PCP - General Family Medicine 03/10/20 11/30/21 [facility] [place] [facility] 08/25/21 Ervin Schroeder MD Referring Provider Family Medicine 03/24/[address] [place] [address] documented as of this encounter
--- OUTSIDE RECORDS SUMMARY | 2022-01-31 04:28 | XMS_ITS | Encounter Summary ---
:1990 Author Organization [facility] Address [address] [place] [address] Care Team Providers Name Role Phone Elsewhere, Pcp Primary Care Provider Unavailable Encounter Details Date Type Department Care Team Description 10/02/2021 Orders Only Jairo Gamino am [facility] 200 [address] [facility] Exam (Primary Dx) and Clinical Regeneration [place], [place] in [employer] [phone] [address] [place] [phone] Social History Tobacco Use Types Packs/Day [...] do you attend mormonism or Never 2021 taoism services? 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 Plan of Treatment Upcoming Encounters Date Type Specialty Care Team Description Office Visit Community Internal Carlos, 2 Medicine Vernell Perez [address] [place] [address] Appointment Radiology Matthew Jerome 2 Tyrell Rodriguez, Lilian [address] [place] [phone] Hospital Gastroenterology and Matthew Jerome 2 Encounter Hepatology Tyrell Rodriguez, Lilian [address] [place] [phone] Surgery Gastroenterology and Matthew Jerome ESOPHAG OGASTRODUODENOSCOPY 2 Hepatology Joshua RodriguezBSumaB.SLilian Moise [address] [place] [phone] Telemedicine Transplant 2 Lab Laboratory Medicine Karin, 2 Adeline Gannon M.D., Ph.D. [address] [place] [phone] Lab Laboratory Medicine Karin, 2 Adeline Gannon M.D., Ph.D. [address] [place] [phone] Office Visit Transplant Karin, Olinda Gannon M.D., Ph.D. [address] [place] [address] [phone] Appointment Radiology Matthew Jerome 2 YJoshuaB.B.SSuma, Lilian [address] [place] [phone] Appointment GastroenterMorenita, 2 Hepatology Yue Burciaga M.D. [address] [place] [address] [phone] Office Visit Gastroenterology and Matthew Jerome 2 Hepatology Joshua RodriguezBSumaB.SSuma, Lilian [address] [place] [phone] Appointment Radiology Matthew Jerome 2 YJoshuaB.B.SLilian Moise [address] [place] [phone] Scheduled Procedures Name Priority Associated Diagnoses Date/Time ESOPHAGOGASTRODUODENOSCOPY Cirrhosis Alc oholic (HCC) 02/10/2022 8:45 AM CDT Hypertension Portal (HCC) documented as of this encounter Visit Diagnoses Diagnosis Clinical Research Exam - Primary Cirrhosis Alcoholic (HCC) Hypertension Portal (HCC) documented in this encounter Care Teams Leno Sewer Relationship Specialty Start Date End Date Elsewhere, Pcp PCP - General Family Medicine 03/10/20 11/30/21 [facility] 08/25/21 Ervin Schroeder MD Referring Provider Family Medicine 03/24/[address] [place] [phone] documented as of this encounter
--- OUTSIDE RECORDS SUMMARY | 2022-01-31 04:28 | XMS_ITS | Encounter Summary ---
:1990 Author Organization [facility] Address [address] [place] [address] Care Team Providers Name Role Phone Elsewhere, Pcp Primary Care Provider Unavailable Encounter Details Date Type Department Care Team Description 10/09/2021 Clinical Communication Ramirez [facility] , Brigid Hudson, Transplantation and MJules Clinical Regeneration in [address] [place] [address] [place] [phone] [place] [phone] Social History Tobacco Use Types Packs/Day Years [...] do you attend zoroastrian or Never 2021 pentecostal services? Do you belong to any clubs or No 07/17/2021 organizations such as zoroastrian groups, unions, fraQbaka or athletic groups, or school groups? 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 Plan of Treatment Upcoming Encounters Date Type Specialty Care Team Description Office Visit Community Internal [facility], 2 Medicine Vernell Perez [address] [place] [phone] Appointment Radiology Matthew Jerome 2 Tyrell Rodriguez, MJules [address] [place] [phone] Hospital Gastroenterology and Matthew Jerome 2 Encounter Hepatology Tyrell Rodriguez, MJules [address] [place] [address] Surgery Gastroenterology and LuischantellMatthew ESOPHAG OGASTRODUODENOSCOPY 2 Hepatology Joshua RodriguezBSumaBLilian Bedolla [address] [place] [phone] Telemedicine Transplant 2 Lab Laboratory Medicine Karin, 2 Adeline Gannon M.D., Ph.D. [address] [place] [phone] Lab Laboratory Medicine Karin, 2 Adeline Gannon M.D., Ph.D. [address] [place] [phone] Office Visit Transplant Karin, 2 Adeline Gannon M.D., Ph.D. [address] [place] [phone] Appointment Radiology Matthew Jerome 2 YElizabeth.B.B.SSuma, Lilian [address] [place] [phone] Appointment Gastroenterology and Adrianne, 2 Hepatology Yue Burciaga M.D. [address] [place] [phone] Office Visit Gastroenterology and Queenie Matthew 2 Hepatology Elizabeth Rodriguez.B.B.SLilian Moise [address] [place] [phone] Appointment Radiology Matthew Jerome 2 Y M.B.B.SLilian Moise [address] [place] [phone] Scheduled Procedures Name Priority Associated Diagnoses Date/Time ESOPHAGOGASTRODUODENOSCOPY Cirrhosis Alc oholic (HCC) 02/10/2022 8:45 AM CDT Hypertension Portal (HCC) documented as of this encounter Visit Diagnoses Not on filedocumented in this encounter Additional Health Concerns Assessment Noted Time PHQ-9 Depression Total Score: 10 10/06/2021 5:00 PM CD T documented as of this encounter Care Teams Manager News Relationship Specialty Start Date End Date Elsewhere, Pcp PCP - General Family Medicine 03/10/20 11/30/21 [facility] [place] [facility] 08/25/21 Ervin Schroeder MD Referring Provider Family Medicine 03/24/[address] [place] [address] documented as of this encounter
--- OUTSIDE RECORDS SUMMARY | 2022-01-31 04:28 | XMS_ITS | Encounter Summary ---
:1990 Author Organization [facility] Address [address] [place] [address] Care Team Providers Name Role Phone Elsewhere, Pcp Primary Care Provider Unavailable Reason for Visit Reason Comments Edema Encounter Details Date Type Department Care Team Description 10/13/2021 Nurse Triage [facility] Department of [place], Vanessa Kumar [facility] Family Medicine and Residency in [place], [place] [address] [place] [phone] Social History Tobacco Use Types Packs/Day [...] do you attend latter-day or Never 2021 episcopal services? 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 encounter Miscellaneous Notes [...] or worsening Protocols used: LEG SWELLING AND [id number]-DD Care Advice Patient/Caregiver understands and will follow [...] [facility], 2 Medicine Vernell Perez [address] [place] [phone] Appointment Radiology Matthew Jerome 2 YTyrell, MJules [address] [place] [phone] Hospital Gastroenterology and Queenie Matthew 2 Encounter Hepatology Tyrell Rodriguez, Lilian [address] [place] [phone] Surgery Gastroenterology and Queenie Matthew ESOPHAG OGASTRODUODENOSCOPY 2 Hepatology Vik RodriguezBGraeme, MJules [address] [place] [phone] Telemedicine Transplant 2 Lab Laboratory Medicine Olinda Frazier M.D., Ph.D. [address] [place] [phone] Lab Laboratory Medicine Olinda Frazier M.D., Ph.D. [address] [place] [phone] Office Visit Transplant Olinda Frazier M.D., Ph.D. [address] [place] [phone] Appointment Radiology Matthew Jerome 2 YJoshuaBSumaBGraeme, Lilian [facility] [place] [phone] Appointment Gastroenterology demian Silver 2 Hepatology Yue Burciaga M.D. [address] [place] [phone] Office Visit Gastroenterology and Matthew Jerome 2 Hepatology Joshua RodriguezBSumaBGraeme, Lilian [address] [place] [phone] Appointment Radiology Matthew Jerome 2 Jennifer M.B.B.SLilian Moise [address] [place] [phone] Scheduled Procedures Name Priority Associated Diagnoses Date/Time ESOPHAGOGASTRODUODENOSCOPY Cirrhosis Alc oholic (HCC) 02/10/2022 8:45 AM CDT Hypertension Portal (HCC) documented as of this encounter Visit Diagnoses Not on filedocumented in this encounter Additional Health Concerns Assessment Noted Time PHQ-9 Depression Total Score: 10 10/06/2021 5:00 PM CD T documented as of this encounter Care Teams Home Demonstration Agent Relationship Specialty Start Date End Date Elsewhere, Pcp PCP - General Family Medicine 03/10/20 11/30/21 [facility] [place] [facility] 08/25/21 Ervin Schroeder MD Referring Provider Family Medicine 03/24/[address] [place] [phone] documented as of this encounter
--- OUTSIDE RECORDS SUMMARY | 2022-01-31 04:28 | XMS_ITS | Encounter Summary ---
:1990 Author Organization [facility] Address [address] [place] [address] Care Team Providers Name Role Phone Elsewhere, Pcp Primary Care Provider Unavailable Encounter Details Date Type Department Care Team Description 10/15/2021 Documentation Department of Gastroenterology [place], in [place], Kaelyn Santillan, M.D. 1025 [facility] 1025 [place] [address] [place], [place] [phone] Social History Tobacco Use Types Packs/Day [...] do you attend congregational or Never 2021 amish services? Do you belong to any clubs or No 07/17/2021 organizations such as congregational groups, unions, fraMeusonic or athletic groups, or school groups? 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 PSC ? HCC ? HPS ? Budd Chiari ? FHF ? Biliary Atresia ? HCV ? PBC ? CCA ? PoPH ? Hemo-chromatosis ? PNF ? PFIC ? HBV ? AIH ? Neuro Endocrine Tumor ? FAP ? U3OU-[id number] ? HAT ? Cystic Fibrosis ? MEJIA [...] on her own after a trip to [place] last July 2020, but could not remember why she decided to. Prior to that she had 4 episodes of recurrent pancreatitis. She states that the 1st illness she had was after a trip to [place] when she had abdominal pain and she [...] saline contrast injection. Patent foramen ovale with gdhpd-fp-mgpv shunt , 20 or greater bubbles seen [...] Community Internal Neda, 2 Medicine Vernell Perez [address] [place] [phone] Appointment Radiology Matthew Jerome 2 Y, M.B.B.SSuma, Lilian [address] [place] [phone] Hospital Gastroenterology and Matthew Jerome 2 Encounter Hepatology Joshua RodriguezB.B.SSuma, Lilian [address] [place] [phone] Surgery Gastroenterology and Matthew Jerome ESOPHAG OGASTRODUODENOSCOPY 2 Hepatology Y M.B.B.SSuma, MJules [address] [place] [phone] Telemedicine Transplant 2 Lab Laboratory Medicine Karin, Olinda Gannon M.D., Ph.D. [address] [place] [phone] Lab Laboratory Medicine Olinda Frazier M.D., Ph.D. [address] [place] [phone] Office Visit Transplant Olinda Frazier M.D., Ph.D. [address] [place] [phone] Appointment Radiology Matthew Jerome 2 Y, M.B.B.SSuma, Lilian 1025 [place] [address] Appointment Gastroenterology and Olinda Silver Hepatology Yue Burciaga M.D. [address] [place] [address] Office Visit Gastroenterology and Matthew Jerome 2 Hepatology Tyrell Rodriguez M.D. 1025 [place] [phone] Appointment Radiology Matthew Jerome 2, M.B.B.S., M.D. 1025 [place] [phone] Scheduled Procedures Name Priority Associated Diagnoses Date/Time ESOPHAGOGASTRODUODENOSCOPY Cirrhosis Alc oholic (HCC) 02/10/2022 8:45 AM CDT Hypertension Portal (HCC) documented as of this encounter Visit Diagnoses Not on filedocumented in this encounter Additional Health Concerns Assessment Noted Time PHQ-9 Depression Total Score: 10 10/06/2021 5:00 PM CD T documented as of this encounter Care Teams Biochemist Relationship Specialty Start Date End Date Elsewhere, Pcp PCP - General Family Medicine 03/10/20 11/30/21 [facility] [place] lab 08/25/21 Ervin Schroeder MD Referring Provider Family Medicine 03/24/[address] [place] [phone] documented as of this encounter
--- OUTSIDE RECORDS SUMMARY | 2022-01-31 04:28 | XMS_ITS | Encounter Summary ---
:1990 Author Organization [facility] Address [address] [place] [address] Care Team Providers Name Role Phone Elsewhere, Pcp Primary Care Provider Unavailable Reason for Referral Outpatient (Routine) - Closed Specialty Diagnoses / Referred By Contact Referred To Procedures Contact Gastroenterology and Diagnoses Cirrhosis Alcoholic (HCC) Hypertension Portal (HCC) Thrombocytopenia (HCC) Abnormal Liver Function Test Deficiency Vitamin A Matthew Jerome [facility] [place] Hepatology Lilian Santillan [address] [place] [address] Referral ID Status Reason Start Date Expiration Date Visits Requ ested Visits Authorized [id number] Closed 10/08/2021 10/08/2022 1 1 Scheduling Instructions 1 month follow up post transplant eval Reason for Visit Reason Comments Follow-up Outpatient (Routine) - Closed Specialty Diagnoses / Referred By Contact Referred To Procedures Contact Gastroenterology and Matthew Jerome [facility] Hepatology Lilian Santillan [address] [place] [address] Referral ID Status Reason Start Date Expiration Date Visits Requ ested Visits Authorized [id number] Closed 08/05/2021 08/05/2022 1 1 Encounter Details Date Type Department Care Team Description 10/08/2021 Office Visit Department of Queenie, Matthew Cirrhosis Alco holic (HCC) (Primary Dx); Gastroenterology in , Tyrell, Hyperten neptali Portal (HCC); [place], [place] Lilian Thrombocytopenia (HCC); 1025 [facility] 1025 [facility] Abnormal Liver Function Test; [place] [address] [place], [place] Deficiency Vitamin A [phone] Social History Tobacco Use Types Packs/Day [...] do you attend yazidism or Never 2021 mu-ism services? 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 She states that she is transparent with the team and is willing to do anything requested that will help her get on the liver transplant list. We reviewed the recent consultation with surgery team, Cardiology, the social sciences research scientist as well as the pain clinic. The [...] liver transplant evaluation with the team in [place], pending transplant psychiatry consultation. Unfortunately this was rescheduled until October 22, 2021. I will await her consultation before I present her case to the liver Transplant selection committee in [place], to evaluate her candidacy as a team. [...] PCP ?? #15 Newly diagnosed PFO with vlghl-et-tits atrial shunt: Echo done March 2020 # [...] OLAYINKA Trotter Gastroenterology, Hepatology and Transplant hepatology [facility] documented in this encounter Plan of Treatment Upcoming Encounters Date Type Specialty Care Team Description Office Visit Community Internal [facility], 2 Medicine Vernell Perez [address] [place] [phone] Appointment Radiology Matthew Jerome 2 YJoshuaBSumaBGraeme, MJules [address] [place] [phone] [facility] Gastroenterology and Matthew Jerome 2 Encounter Hepatology Tyrell Rodriguez, Lilian [address] [place] [phone] Surgery Gastroenterology and Matthew Jerome ESOPHAG OGASTRODUODENOSCOPY 2 Hepatology Joshua RodriguezB.B.Kath, Lilian [address] [place] [phone] Telemedicine Transplant 2 Lab Laboratory Medicine Karin, 2 Adeline Gannon M.D., Ph.D. [address] [place] [phone] Lab Laboratory Medicine Karin, Olinda Adeline Gannon M.D., Ph.D. [address] [place] [phone] Office Visit Transplant Karin, Olinda Adeline Gannon M.D., Ph.D. [address] [place] [phone] Appointment Radiology Matthew Jerome 2 YVikBSumaSSuma, Lilian [address] [place] [phone] Appointment Gastroenterology and Adrianne 2 Hepatology Yue Burciaga M.D. [address] [place] [phone] Office Visit Gastroenterology and Matthew Jerome 2 Hepatology Jennifer M.B.B.SSuma, Lilian [address] [place] [phone] Appointment Radiology Matthew Jerome 2 YElizabeth.B.B.SLilian Moise [address] [place] [phone] Scheduled Procedures Name Priority Associated Diagnoses Date/Time [...] Organization Address City/State/ZIP Code Phon e Number [facility]- [address] [place] [address] [place] [address] System in [place] 2[address] [facility] (ABNORMAL) Prothrombin Time (PT) (12/02/2021 4:14 PM [...] Organization Address City/State/ZIP Code Phon e Number [facility]- [address] [place] [address] [place] [address] System in [place] 2[address] [facility] documented in this encounter Visit Diagnoses Diagnosis Cirrhosis Alcoholic (HCC) - Primary Hypertension Portal (HCC) Thrombocytopenia (HCC) Abnormal Liver Function Test Deficiency Vitamin A Cirrhosis Alcoholic (HCC) Hypertension Portal (HCC) documented in this encounter Additional Health Concerns Assessment Noted Time PHQ-9 Depression Total Score: 10 10/06/2021 5:00 PM CD T documented as of this encounter Care Teams Technical Asst Relationship Specialty Start Date End Date Elsewhere, Pcp PCP - General Family Medicine 03/10/20 11/30/21 [facility] [place] lab 08/25/21 Ervin Schroeder MD Referring Provider Family Medicine 03/24/[address] [place] [phone] documented as of this encounter
[2022-01-31 04:29] LABS: Hemoglobin* 7.4 gm/dL (12.0-16.0)
--- OUTSIDE RECORDS SUMMARY | 2022-01-31 04:29 | XMS_ITS | Encounter Summary ---
:1990 Author Organization [facility] Address [address] [place] [address] Care Team Providers Name Role Phone Elsewhere, Pcp Primary Care Provider Unavailable Reason for Referral Transplant (Routine) - Authorized Specialty Diagnoses / Procedures Referred By Contact Refer red To Contact Transplant Surgery / Matthew Jerome [place] [facility] Transplant M.B.B.S., M.D. [address] [place] [phone] Referral ID Status Reason Start Date Expiration Date Visits V isits Requested Authorized [id number] Authorized 10/27/2021 10/27/2022 1 1 Scheduling Instructions May be phone or video- patient preferenc e. Scheduled in [place]. Thanks Transplant (Routine) - Authorized Specialty Diagnoses / Procedures Referred By Contact Refer red To Contact Transplant Surgery / Matthew Jerome [place] [facility] Transplant Lilian Santillan [address] [place] [phone] Referral ID Status Reason Start Date Expiration Date Visits V asher Requested Authorized [id number] Authorized 10/27/2021 10/27/2022 1 1 Scheduling Instructions [place] Scheduled in [place]. Thanks Reason for Visit Reason Comments Patient Education 1:1 education Encounter Details Date Type Department Care Team Description 10/01/2021 Education [place] Carter M.D., M.P.H. [address] [place] [address] Cirrhosis Alcoholic (HCC[facility] Chano Engle, R.N., C.C.T.C. Abnormal Liver Function Test; Transplantation and Ascites; Clinical Regeneration in Pre transplant Recipient Evaluation Exam; [place], [place] Preoperative Exam [address] [place] [phone] Social History Tobacco Use Types Packs/Day [...] do you attend zoroastrianism or Never 2021 anglican services? Do you [...] the highest level of school Associate degree: ruht barker, 07/16/2021 you have completed or the highest technical, or vocational p rolf degree you have received? 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 All questions were answered. Catia Carias has [...] accepted: Orders, SmartSet Addendum Note - Matthew Jerome M.B.BSumaSSuma, M.D. - 10/01/2021 8:00 AM CDT Addended by: MATTHEW JEROME on: 10/27/2021 05:38 PM Modules accepted: Orders documented in this encounter Plan of Treatment Upcoming Encounters Date Type Specialty Care Team Description Office Visit Community Internal [facility], 2 Medicine Vernell Perez [address] [place] [phone] Appointment Radiology Matthew Jerome 2 YTyrell, Lilian [address] [place] [phone] Hospital Gastroenterology and Matthew Jerome 2 Encounter Hepatology Tyrell Rodriguez M.D. [address] [place] [phone] Surgery Gastroenterology and Matthew Jerome ESOPHAG OGASTRODUODENOSCOPY 2 Hepatology Tyrell Rodriguez, Lilian [address] [place] [phone] Telemedicine Transplant 2 Lab Laboratory Medicine Olinda Frazier M.D., Ph.D. [address] [place] [phone] Lab Laboratory Medicine Olinda Frazier M.D., Ph.D. [address] [place] [phone] Office Visit Transplant Olinda Frazier M.D., Ph.D. [address] [place] [phone] Appointment Radiology Matthew Jerome 2 YTyrell M.D. [facility] [place] [phone] Appointment Gastroenterology demian Silver, 2 Hepatology Yue Burciaga M.D. [address] [place] [address] Office Visit Gastroenterology and Matthew Jerome 2 Hepatology Tyrell Rodriguez M.D. [address] [place] [phone] Appointment Radiology Matthew Jerome 2 Tyrell Rodriguez M.D. [address] [place] [phone] Scheduled Orders Name Type Priority Associated Diagnoses [...] cted: office visit 01/26/2022 (clinic) (Approximate), Expires: 01/27/2023 documented as of this encounter Visit Diagnoses Diagnosis Cirrhosis Alcoholic (HCC) Abnormal Liver Function Test Ascites Pretransplant Recipient Evaluation Exam Preoperative Exam Cirrhosis Alcoholic (HCC) Hypertension Portal (HCC) documented in this encounter Care Teams Agency Cashier Relationship Specialty Start Date End Date Elsewhere, Pcp PCP - General Family Medicine 03/10/20 11/30/21 [facility]- [place] lab 08/25/21 Ervin Schroeder MD Referring Provider Family Medicine 03/24/[address] [place], [place] [phone] documented as of this encounter
--- OUTSIDE RECORDS SUMMARY | 2022-01-31 04:29 | XMS_ITS | Encounter Summary ---
:[address] [facility] Address [address] [place] [address] Care Team Providers Name Role Phone Elsewhere, Pcp Primary Care Provider Unavailable Reason for Visit Reason Comments Leg Pain Encounter Details Date Type Department Care Team Description 09/28/2021 Nurse Triage Department of [facility] Naila Walters R.N. Leg Pain Medicine, [facility], in [address] [place] [address] [place] [phone] [place] [address] [phone] Social History Tobacco Use Types Packs/Day Years [...] do you attend catholic or Never 2021 restoration services? Do you [...] or the highest technical, or vocational p i.Meterram degree you have received? 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 documented in this encounter Plan of Treatment Upcoming Encounters Date Type Specialty Care Team Description Office Visit Community Internal Neda, Olinda Medicine Vernell Perez [address] [place] [phone] Appointment Radiology Matthew Jerome 2 Y, M.B.B.SSuma, MJules [address] [place] [phone] Hospital Gastroenterology and Alchantell Matthew 2 Encounter Hepatology Y M.B.B.SSuma, iLlian [address] [place] [phone] Surgery Gastroenterology and Alchantell Matthew ESOPHAG OGASTRODUODENOSCOPY 2 Hepatology Y M.B.B.S., MJules [address] [place] [phone] Telemedicine Transplant 2 Lab Laboratory Medicine Karin, 2 Adeline Gannon M.D., Ph.D. [address] [place] [phone] Lab Laboratory Medicine Olinda Frazier M.D., Ph.D. [address] [place] [phone] Office Visit Transplant Olinda Frazier M.D., Ph.D. [address] [place] [phone] Appointment Radiology Matthew Jerome 2 Y, M.B.B.SSuma, Lilian [address] [place] [phone] Appointment Gastroenterology and Adrianne 2 Hepatology uYe Burciaga M.D. [address] [place] [address] Office Visit Gastroenterology and LuisMatthew abdul 2 Hepatology Joshua RodriguezB.B.SSuma, Lilian [address] [place] [address] Appointment Radiology Matthew Jerome 2 YJoshuaB.B.SSuma, Lilian [address] [place] [address] Scheduled Procedures Name Priority Associated Diagnoses Date/Time ESOPHAGOGASTRODUODENOSCOPY Cirrhosis Alc oholic (HCC) 02/10/2022 8:45 AM CDT Hypertension Portal (HCC) documented as of this encounter Visit Diagnoses Not on filedocumented in this encounter Care Teams Claim Rep Relationship Specialty Start Date End Date Elsewhere, Pcp PCP - General Family Medicine 03/10/20 11/30/21 [facility]- [place] lab 08/25/21 Ervin Schroeder MD Referring Provider Family Medicine 03/24/[address] [place] [address] documented as of this encounter
--- OUTSIDE RECORDS SUMMARY | 2022-01-31 04:29 | XMS_ITS | Encounter Summary ---
:[address] [facility] Address [address] [place] [address] Care Team Providers Name Role Phone Elsewhere, Pcp Primary Care Provider Unavailable Reason for Referral Outpatient (Routine) - Closed Specialty Diagnoses / Procedures Referred By Contact Refer red To Contact Nicotine Dependence Jessy Crain M.A., C.T.T.S. [address] [place] [address] Referral ID Status Reason Start Date Expiration Date Visits Requ ested Visits Authorized [id number] Closed 10/01/2021 10/01/2022 1 1 Scheduling Instructions [...] Recipient Evaluation Exam Preoperative Exam [place] Hernández, [facility] Nicotine Dependence Lilian, M.P.H. [address] [place] [address] Referral ID Status Reason Start Date Expiration Date Visits Requ ested Visits Authorized [id number] Closed 08/25/2021 08/25/2022 1 1 Encounter Details Date Type Department Care Team Description 10/01/2021 Clinical Support Department of Elier Hernández M.D., M.P.H. [address] [place] [address] Nicotine Dependence Cigarettes (Primary Dx); Nicotine Jessy Crain M.A., C.T.T.S. [address] [place] [phone] Cirrhosis Alcoholic (HCC); Dependence, Gonda Abnormal L iver Function Test; Building, in Ascites; [place], Pretransplant R ecipient Evaluation Exam; [place] Preoperative Exam [address] [place] [phone] Social History Tobacco Use Types Packs/Day Years [...] do you attend jainism or Never 2021 scientologist services? 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 - 10/01/2021 10:00 AM CDT SUBJECTIVE CHIEF COMPLAINT / REASON FOR VISIT Tobacco use disorder HISTORY OF PRESENT ILLNESS Catia Carias is a 31 y.o. female who was seen at [place] [address] and is being evaluated for Tobacco Use [...] use disorder. 2. Tobacco dependence counseling: Ms. Carias has already reduced tobacco use and has [...] provided the patient with educational materials and [facility] contact information. We have scheduled a follow-up [...] Internal [facility], 2 Medicine Vernell Perez [address] [place] [phone] Appointment Radiology Queenie Matthew 2 YTyrell, Lilian [address] [place] [phone] Hospital Gastroenterology and Utchantell Matthew 2 Encounter Hepatology YTyrell, Lilian [address] [place] [phone] Surgery Gastroenterology and [facility] Matthew ESOPHAG OGASTRODUODENOSCOPY 2 Hepatology YTyrell, Lilian [address] [place] [phone] Telemedicine Transplant 2 Lab Laboratory Medicine Olinda Frazier M.D., Ph.D. [address] [place] [phone] Lab Laboratory Medicine Olinda Frazier M.D., Ph.D. [address] [place] [phone] Office Visit Transplant Olinda Frazier M.D., Ph.D. [address] [place] [phone] Appointment Radiology Matthew Jerome 2 Tyrell Rodriguez M.D. [facility] [place] [address] Appointment Gastroenterology demian Silver 2 Hepatology Yue Burciaga M.D. [address] [place] [address] Office Visit Gastroenterology and Matthew Jerome 2 Hepatology Tyrell Rodriguez M.D. [address] [place] [phone] Appointment Radiology Matthew Jerome 2 Tyrell Rodriguez M.D. [address] [place] [phone] Scheduled Procedures Name Priority Associated Diagnoses Date/Time [...] (HCC) documented in this encounter Care Teams Telecine Operator Relationship Specialty Start Date End Date Elsewhere, Pcp PCP - General Family Medicine 03/10/20 11/30/21 [facility] [place] lab 08/25/21 Ervin Schroeder MD Referring Provider Family Medicine 03/24/[address] [place] [address] documented as of this encounter
--- OUTSIDE RECORDS SUMMARY | 2022-01-31 04:29 | XMS_ITS | Encounter Summary ---
:1990 Author Organization [facility] Address [address] [place] [address] Care Team Providers Name Role Phone Elsewhere, Pcp Primary Care Provider Unavailable Reason for Visit Reason Onset Date Comments [facility] Financial 09/26/2021 Encounter Details Date Type Department Care Team Description 09/26/2021 Clinical Communication Ramirez Amador, [facility], Transplantation and C.M.A. Clinical Regeneration in [phone] [place], [place] (Work) [address] [place] [phone] Social History Tobacco Use Types Packs/Day [...] do you attend orthodox or Never 2021 hoahaoism services? 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 __X__ Patient understands that this is [...] current coverage and to contact the appropriate alliance party with anticipated changes. Estimate of Services: _X___ Confirmed understanding of potential financial responsibilities and transplant anticipated expenses. _X___ Transplant care and post-transplant medications are life-long (general information; patient can obtain list of immunosuppressants (Medications) from the nurse coordinator. __X__ Discussed out of pocket expenses for follow-up care, including testing, routine care, and/or complications from surgery. _X___ Handed patient Financial Assistance Policy. ([id number]) PATIENT EDUCATION Education Material: __X__ Provided patient with an educational guide (Planning for Your Transplant: A Financial Guide [id number]) to assist in outlining financial responsibilities related [...] _X___ Advised recipient to notify [facility] with any insurance updates or changes; failure to do so may impede transplant eligibility. __X__ Discussed financial concerns related to ability to pay for services and post-transplant care. Including, Financial Assistance policy if financial hardship was identified. __X__ Provided Transplant Financial business card with our contact phone number of [phone] if patient were to have additional questions. __X__ Annual benefit review will be done to verify active coverage with patient's insurance going forward. PATIENT TEACH BACK X [facility] X May have travel and lodging funds available through [facility] X Cost of transplant X Reviewed to call Transplant Financial Coordinators with questions documented in this encounter Plan of Treatment Upcoming Encounters Date Type Specialty Care Team Description Office Visit [facility] Internal [facility], 2 Medicine Vernell Perez [address] [place] [phone] Appointment Radiology Matthew Jerome 2 Y, M.B.BGraeme, Lilian [address] [place] [phone] Hospital Gastroenterology and [facility], Matthew 2 Encounter Hepatology Y MSumaBJhoan, Lilian [address] [place] [phone] Surgery Gastroenterology and [facility], Matthew ESOPHAG OGASTRODUODENOSCOPY 2 Hepatology Y M.B.BGraeme, Lilian [address] [place] [phone] Telemedicine Transplant 2 Lab Laboratory Medicine Karin, 2 Adeline Gannon M.D., Ph.D. [address] [place] [phone] Lab Laboratory Medicine Karin, 2 Adeline Gannon M.D., Ph.D. [address] [place] [phone] Office Visit Transplant Karin, Olinda Gannon M.D., Ph.D. [address] [place] [phone] Appointment Radiology Matthew Jerome 2 Y, M.B.B.SSuma, Lilian [address] [place] [phone] Appointment Gastroenterology and [place], 2 Hepatology Yue Burciaga M.D. [address] [place] [phone] Office Visit Gastroenterology and Matthew Jerome 2 Hepatology Joshua RodriguezBSumaBGraeme, Lilian [address] [place] [phone] Appointment Radiology LuisMatthew abdul 2 Joshua RodriguezBSumaBGraeme, Lilian [address] [place] [phone] Scheduled Procedures Name Priority Associated Diagnoses Date/Time ESOPHAGOGASTRODUODENOSCOPY Cirrhosis Alc oholic (HCC) 02/10/2022 8:45 AM CDT Hypertension Portal (HCC) documented as of this encounter Visit Diagnoses Not on filedocumented in this encounter Care Teams Script Developer Relationship Specialty Start Date End Date Elsewhere, Pcp PCP - General Family Medicine 03/10/20 11/30/21 [facility] 08/25/21 Ervin Schroeder MD Referring Provider Family Medicine 03/24/[address] [place] [phone] documented as of this encounter
--- OUTSIDE RECORDS SUMMARY | 2022-01-31 04:29 | XMS_ITS | Encounter Summary ---
:1990 Author Organization [facility] Address [address] [place] [phone] Care Team Providers Name Role Phone Elsewhere, Pcp Primary Care Provider Unavailable Reason for Visit Reason Comments Med Management Outpatient (Routine) - Closed Specialty Diagnoses / Procedures Referred By Contact Refer red To Contact Pharmacy Diagnoses Cirrhosis Alcoholic (HCC) Abnormal Liver Function Test Ascites Pretransplant Recipient Evaluation Exam Preoperative Exam Warren Hernández M.D., [facility] M.P.[facility] [address] [place] [address] Referral ID Status Reason Start Date Expiration Date Visits Requ ested Visits Authorized [id number] Closed 08/25/2021 08/25/2022 1 1 Encounter Details Date Type Department Care Team Description 09/30/2021 Office Visit Warren Carter M.D., M.P.H. [address] [place] [address] [phone] Cirrhosis Alcoholic (HCC); Evon Collins Pharm.D., R.Ph. 200 [place] [address] Abnormal Liver Function Test; Transplantation and Ascites; Clinical Regeneration in Pre transplant Recipient Evaluation Exam; [place], [place] Preoperative Exam 200 [place] [phone] Social History Tobacco Use Types Packs/Day [...] do you attend adventism or Never 2021 scientologist services? 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 female who is seen today by [facility] Pharmacist. The patient presents today for a [facility] Pharmacist transplant evaluation; consideration for transplant [...] future, as smoking hurts her lungs.Medical Cannabis [place] registration #[id number]. Insomnia medications: She also has hydroxyzine 25 [...] 1 mgdaily, thiamine 100 mg daily, ergocalciferol 21238 IU weekly on Wednesday and vitamin A 55615 units three days per week. Contraception medications: [...] 1 time per month. The patient uses Vinylmint locally. Does the patient know what medications [...] Care Team Description Office Visit [facility], 2 Medicine Vernell Perez [address] [place] [phone] Appointment Radiology Matthew Jerome 2 Tyrell Rodriguez, Lilian [address] [place] [phone] Hospital Gastroenterology and Matthew Jerome 2 Encounter Hepatology Tyrell Rodriguez M.D. 10[address] [place] [phone] Surgery Gastroenterology and Matthew Jerome ESOPHAG OGASTRODUODENOSCOPY 2 Hepatology Joshua RodriguezBSumaBLilian Bedolla [address] [place] [phone] Telemedicine Transplant 2 Lab Laboratory Medicine Karin, 2 Adeline Gannon M.D., Ph.D. [address] [place] [phone] Lab Laboratory Medicine Karin, 2 Adeline Gannon M.D., Ph.D. [address] [place] [phone] Office Visit Transplant Karin, 2 Adeline Gannon M.D., Ph.D. [address] [place] [phone] Appointment Radiology Matthew Jerome 2 MSumaB.BGraeme, Lilian [address] [place] [phone] Appointment Gastroenterology and [place], 2 Hepatology Yue Burciaga M.D. [address] [place] [phone] Office Visit Gastroenterology and Matthew Jerome 2 Hepatology Elizabeth Rodriguez.B.B.Lilian [place] [address] [place] [phone] Appointment Radiology Mousa, MatthewTyrell Lo 2, M.D. [address] [place] [phone] Scheduled Procedures Name Priority Associated Diagnoses Date/Time ESOPHAGOGASTRODUODENOSCOPY Cirrhosis Alc oholic (HCC) 02/10/2022 8:45 AM CDT Hypertension Portal (HCC) documented as of this encounter Visit Diagnoses Diagnosis Cirrhosis Alcoholic (HCC) Abnormal Liver Function Test Ascites Pretransplant Recipient Evaluation Exam Preoperative Exam Cirrhosis Alcoholic (HCC) Hypertension Portal (HCC) documented in this encounter Care Teams [employer] Registrar Relationship Specialty Start Date End Date Elsewhere, Pcp PCP - General Family Medicine 03/10/20 11/30/21 [facility] [place] [facility] 08/25/21 Ervin Schroeder MD Referring Provider Family Medicine 03/24/[address] [place] [address] documented as of this encounter
--- OUTSIDE RECORDS SUMMARY | 2022-01-31 04:29 | XMS_ITS | Encounter Summary ---
:1990 Author Organization [facility] Address [address] [place] [address] Care Team Providers Name Role Phone Elsewhere, Pcp Primary Care Provider Unavailable Reason for Visit Outpatient (Routine) - Closed Specialty Diagnoses / Procedures Referred By Contact Refer red To Contact Preventive Medicine Diagnoses Cirrhosis Alcoholic (HCC) Abnormal Liver Function Test Ascites Pretransplant Recipient Evaluation Exam Preoperative Exam Warren Hernández [facility] Lilian, M.P.H. 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 Abnorm al Liver Function Test; in [place], [facility]; [place] Pretransplant Recipient Eval uation Exam; [address] [facility] [place] [phone] Social History Tobacco Use Types Packs/Day Years [...] do you attend restoration or Never 2021 sikhism services? 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 Consult Notes [...] Care Team Description Office Visit [facility], 2 Medicine Vernell Perez [address] [place] [address] [phone] Appointment Radiology [facility] 2 Y M.B.B.S., MJules [address] [place] [phone] Hospital Gastroenterology and [facility] 2 Encounter Hepatology Joshua RodriguezB.B.SSuma, MJules [address] [place] [phone] Surgery Gastroenterology and [facility] ESOPHAG OGASTRODUODENOSCOPY 2 Hepatology YElizabeth.B.B.S., MJules [address] [place] [phone] Telemedicine Transplant 2 Lab Laboratory Medicine Karin, 2 Adeline Gannon M.D., Ph.D. [address] [place] [phone] Lab Laboratory Medicine Olinda Frazier M.D., Ph.D. [address] [place] [phone] Office Visit Transplant Karin, 2 Adeline Gannon M.D., Ph.D. [address] [place] [phone] Appointment Radiology Matthew Jerome 2 Y, Elizabeth.B.B.SSuma, Lilian [address] [place] [phone] Appointment Gastroenterology and [place] 2 Hepatology Yue Burciaga M.D. [address] [place] [phone] Office Visit Gastroenterology and Matthew Jerome 2 Hepatology Joshua RodriguezB.B.SLilian Moise [address] [place] [phone] Appointment Radiology Matthew Jerome 2 Y M.B.B.SSuma, Lilian [address] [place] [phone] Scheduled Procedures Name Priority Associated Diagnoses Date/Time ESOPHAGOGASTRODUODENOSCOPY Cirrhosis Alc oholic (HCC) 02/10/2022 8:45 AM CDT Hypertension Portal (HCC) documented as of this encounter Visit Diagnoses Diagnosis Counseling Preventive - Primary Cirrhosis Alcoholic (HCC) Abnormal Liver Function Test Ascites Pretransplant Recipient Evaluation Exam Preoperative Exam Cirrhosis Alcoholic (HCC) Hypertension Portal (HCC) documented in this encounter Care Teams Dispute Resolution Analyst Relationship Specialty Start Date End Date Elsewhere, Pcp PCP - General Family Medicine 03/10/20 11/30/21 [facility] [place] [facility] 08/25/21 Ervin Schroeder MD Referring Provider Family Medicine 03/24/[address] [place] [phone] documented as of this encounter
--- OUTSIDE RECORDS SUMMARY | 2022-01-31 04:29 | XMS_ITS | Encounter Summary ---
:1990 Author Organization [facility] Address [address] [place] [phone] Care Team Providers Name Role Phone Elsewhere, Pcp Primary Care Provider Unavailable Reason for Visit Transplant (Routine) - Closed Specialty Diagnoses / Procedures Referred By Contact Refer red To Contact Transplant Surgery / Diagnoses Cirrhosis Alcoholic (HCC) Abnormal Liver Function Test Ascites Pretransplant Recipient Evaluation Exam [facility] [address] [place] [phone] Referral ID Status Reason Start Date Expiration Date Visits Requ ested Visits Authorized [id number] Closed 08/25/2021 08/25/2022 1 1 Encounter Details Date Type Department Care Team Description 09/30/2021 Clinical Support Warren Carter M.D., M.P.H. [address] [place] [address] [phone] Cirrhosis Alcoholic (HCC); Luis E for Joel Tan L.I.C.S.W., M.S.W. 200 [place] [address] Abnormal Liver Function Test; Transplantation and Ascites; Clinical Regeneration Pretra nsplant Recipient Evaluation Exam; in [facility] Preoperative Exam [address] [place] [phone] Social History Tobacco Use Types Packs/Day Years [...] do you attend adventism or Never 2021 zoroastrianism services? 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 - 09/30/2021 10:30 AM CDT Transplant Psychosocial Assessment DEMOGRAPHIC INFORMATION SUBJECTIVE Referral Source: Dr. Warren Hernández, Liver Transplant team Patient seen for: pre-transplant of liver Persons present: Patient, who prefers to be called, Christelle, and her mother, Parris Knight. Previous Psychosocial Assessment : No Patient's primary care provider/clinic: Dr. Migue Schroeder at [facility] in [place], [place]. Primary language: Albanian For this interview, the patient utilized language services: No Citizenship [place] citizen: Yes [place] resident: Yes Race/Ethnicity: Race: White Ethnicity: Kyrgyz, Descent Disclaimer: ?? The patient and her [...] understanding. ?? The role of the Transplant Assembler And Tester Electronics was explained. ?? Selection Committee: The patient [...] of origin: The patient was raised in [place], [place]. Her parents when she was 20 years old. Her mother remarried. The patient calls her step- father, Siva, her bonus father. The patient's mother and step-father live in [place], [place]. The patient's father did not remarry. He lives in [place], [place], which is 10-12 minutes from the [...] past. She most recently worked in the [employer] department at the [employer] in [place], [place]. She stopped working in January 2021 as she was advised to no longer work due to her medical condition. Patient's plan for extended time off for recovery: The patient does not currently have a source of income. Boyfriend's work: The patient's boyfriend works greenhouse technician as a paint hat liner for a powder coating company called [employer]. Spiritual Practices/Rastafarian/Culture Spirituality / Rastafarian / Culture: The patient stated she does not have a zoroastrianism preference. The patient was informed of the availability of Mid Level Project Manager Services at [facility]. History The patient stated she has never [...] a nurse come into her home from [facility] every (phone: [phone]). The nurse sets up the patient's medications [...] The patient lives approximately one hour from [place]. She would arrive via private vehicle. Relocation Plan: The patient was provided with information on the [facility]. Shewas also provided with information on the Plant Engineering Supervisor Services at [facility] who can assist with answering questions about local lodging accommodations. We did not have an opportunity to discuss these in detail today due to the time constraints of our interview, however I have encouraged the patient tocall me should she have additional questions. FINANCES/INSURANCE Primary insurance: [facility] BLUE PLUS HMO ([place] Medicaid) Secondary/Supplemental insurance: None Does patient have a benefit for travel, lodging and/or meals through insurance? The patient does notknow. I advised her to contact [facility] to inquire about her eligibility for benefits. Household Information Number of persons in household: Two (patient and her boyfriend) Type of housing: Rent Source of household income: The patient does not currently have a source of income. She stated she is not receiving any assistance (such as food support) through her [facility] Utility Sales Representative office. She has not yet applied for assistance. The patient's boyfriend has income through his greenhouse technician employment wages. Current Financial Concerns: The patient [...] Pharmacy Pharmacy coverage: [employer] BLUE PLUS HMO (OR Medicaid) Current medication(s) received through prescription assistance [...] advance directive. I provided the patient with [facility]'s blank advance directive booklet and provided her with education on advance directives. I encouraged the patient to provide a copy of an advance directive to [facility], should she completed one in the future, [...] Service and had to meet with a foreign policy officer. The patient was asked how she [...] with pain. The patient showed me her [place] Medical Cannabis Patient Registration Verification Card on her cell phone. She stated she started using medical cannabis in May 2021 and that it was prescribed for chronic leg pain which she states it is either neuropathy brought on by cirrhosis, manager long term care effects brought on by drugs used to [...] have a couple of puffs. The patient's [place] Medical Cannabis registration number is: [id number]. Family History: Father - alcohol (past, not currently of concern) Labs: Ethyl Glucuronide screen: 09/30/2021 - negative Urine Drug screen: 09/30/2021 - presumptive positive for benzodiazepines and THC. PEth: 09/30/2021 - in process ASSESSMENT / PLAN DISCUSSION Met with the patient and her mother at the [facility] [address] [facility] this morning. The patient is [...] 16 or 17 and has had a [employer] Cannabis card since May 2021. Capability of [...] The patient was advised to contact her [facility] social media job titles office to determine if she has a [...] - [facility] brochure ([id number]) - Patient's Guide to [facility] ([id number]) - Information for Caregivers: Taking Care of Yourself ([id number]) - Preparing for Transplant: Body, Mind, and Spirit ([id number]) - [facility] Advance directive booklet - [employer] [facility] financial assistance resource guide - What to Expect as a Transplant Caregiver brochure ([id number]) - National Living Donor Assistance Center brochure - HelpHopeLive fundraising brochure - National Foundation for Transplants fundraising brochure - [facility]: 5 Ways to Connect ([id number]) PLAN -The patient will continue through the [...] Care Team Description Office Visit Community Internal [facility], Medicine Vernell Perez [address] [place] [phone] Appointment Radiology Matthew Jerome 2 YTyrell M.D. [address] [place] [phone] [facility] Gastroenterology and Mousa, Matthew 2 Encounter Hepatology Tyrell Rodriguez M.D. [address] [place] [phone] Surgery Gastroenterology and Mousa, Matthew ESOPHAG OGASTRODUODENOSCOPY 2 Hepatology Tyrell Rodriguez M.D. [address] [place] [phone] Telemedicine Transplant 2 Lab Laboratory Medicine Karin, 2 Adeline Gannon M.D., Ph.D. [address] [place] [phone] Lab Laboratory Medicine Karin, 2 Adeline Gannon M.D., Ph.D. [address] [place] [address] [phone] Office Visit Transplant Karin, 2 Adeline Gannon M.D., Ph.D. [address] [place] [phone] Appointment Radiology Matthew Jerome 2 Tyrell Rodriguez M.D. [address] [place] [phone] Appointment Gastroenterology and Adrianne, 2 Hepatology Yue Burciaga M.D. [address] [place] [phone] Office Visit Gastroenterology and Mousa, Matthew 2 Hepatology Vik RodriguezBLilian Bedolla [address] [place] [phone] Appointment Radiology Matthew Jerome 2 YTyrell, Lilian [address] [place] [phone] Scheduled Procedures Name Priority Associated Diagnoses Date/Time ESOPHAGOGASTRODUODENOSCOPY Cirrhosis Alc oholic (HCC) 02/10/2022 8:45 AM CDT Hypertension Portal (HCC) documented as of this encounter Visit Diagnoses Diagnosis Cirrhosis Alcoholic (HCC) Abnormal Liver Function Test Ascites Pretransplant Recipient Evaluation Exam Preoperative Exam Cirrhosis Alcoholic (HCC) Hypertension Portal (HCC) documented in this encounter Care Teams Waiter/Waitress Tourist Class Relationship Specialty Start Date End Date Elsewhere, Pcp PCP - General Family Medicine 03/10/20 11/30/21 [facility] [place] [facility] 08/25/21 Ervin Schroeder MD Referring Provider Family Medicine 03/24/[address] [place] [phone] documented as of this encounter
--- OUTSIDE RECORDS SUMMARY | 2022-01-31 04:29 | XMS_ITS | Encounter Summary ---
:1990 Author Organization [facility] Address [address] [place] [address] Care Team Providers Name Role Phone Elsewhere, Pcp Primary Care Provider Unavailable Reason for Referral Outpatient (Routine) - Closed Specialty Diagnoses / Procedures Referred By Contact Refer red To Contact Diagnoses Cirrhosis Alcoholic (HCC) Abnormal Liver Function Test Ascites Pretransplant Recipient Evaluation Exam Preoperative Exam Warren Hernández [facility] Procedures Echo Transthoracic (TTE) Lilian, M.P.H. [address] [place] [address] Referral ID Status Reason Start Date Expiration Date Visits Requ ested Visits Authorized [id number] Closed 08/31/2021 08/31/2022 1 1 Reason for Visit Outpatient (Routine) - Closed Specialty Diagnoses / Procedures Referred By Contact Refer red To Contact Diagnoses Cirrhosis Alcoholic (HCC) Abnormal Liver Function Test Ascites Pretransplant Recipient Evaluation Exam Preoperative Exam Warren Hernández, [facility] [place] [facility] Procedures Echo Transthoracic (TTE) Lilian, M.P.H. [address] [place] [address] Referral ID Status Reason Start Date Expiration Date Visits Requ ested Visits Authorized [id number] Closed 08/31/2021 08/31/2022 1 1 Encounter Details Date Type Department Care Team Description 09/23/2021 Hospital Department of [place], Cirrhosis Alco holic (HCC); Encounter Cardiovascular Warren Schaefer, Abnormal Live r Function Test; Diseases in [place], Lilian, M.P.H . Ascites; [place] [address] [facility] Pretransplant Recipient Evaluation Exam; [address] [place], [place] [address] [phone] Social History Tobacco Use Types Packs/Day Years [...] do you attend yazidism or Never 2021 confucianism services? 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 ergocalciferol (DRISDOL) Take 50,000 Units 0 03/0501/14/2022 50,000 Unit capsule by mouth once a week. Mondays folic acid 1 mg tablet Take 5 [...] and dinner. ondansetron ODT Dissolve 1 tablet 0 04/23/2021 (ZOFRAN-ODT) 8 mg in the mouth 3 disintegrating tablet (three) times a day as needed for nausea or vomiting. oxyCODONE (ROXICODONE) 5 Take 5 mg by [...] Community Internal Neda, 2 Medicine Vernell Perez [address] [place] [phone] Appointment Radiology Matthew Jerome 2 Y, Elizabeth.BSumaBGraeme, Lilian [address] [place] [phone] Hospital Gastroenterology and Matthew Jerome 2 Encounter Hepatology Joshua RodriguezBSumaBGraeme, Lilian [address] [place] [phone] Surgery Gastroenterology and Matthew Jerome ESOPHAG OGASTRODUODENOSCOPY 2 Hepatology Y M.B.B.SSuma, Lilian [address] [place] [phone] Telemedicine Transplant 2 Lab Laboratory Medicine Karin, Olinda Gannon M.D., Ph.D. [address] [place] [phone] Lab Laboratory Medicine Olinda Frazier M.D., Ph.D. [address] [place] [phone] Office Visit Transplant Olinda Frazier M.D., Ph.D. [address] [place] [phone] Appointment Radiology Matthew Jerome 2 Y, M.B.B.SSuma, Lilian [address] [place] [phone] Appointment Gastroenterology and Adrianne, Olinda Hepatology Yue Burciaga M.D. [address] [place] [phone] Office Visit Gastroenterology and Matthew Jerome 2 Hepatology Tyrell Rodriguez M.D. [address] [place] [phone] Appointment Radiology Matthew Jerome 2, M.B.B.S., M.D. [address] [place] [phone] Scheduled Procedures Name Priority Associated Diagnoses Date/Time [...] AND CONTRAST (09/23/2021 4:39 PM CDT) [facility] Method Time Signature Ejection Fraction 66 [...] complete report, see the Order-L evel Documents. Narrative 09/23/2021 10:27 PM CDT For [...] complete report, see the Order-L evel Documents. Final Impressions 1. Normal left ventricular [...] protocol documented in this encounter Care Teams Cook Ice Cream Relationship Specialty Start Date End Date Elsewhere, Pcp PCP - General Family Medicine 03/10/20 11/30/21 [facility] [place] lab 08/25/21 Ervin Schroeder MD Referring Provider Family Medicine 03/24/[address] [place] [address] documented as of this encounter
--- OUTSIDE RECORDS SUMMARY | 2022-01-31 04:29 | XMS_ITS | Encounter Summary ---
:1990 Author Organization [facility] Address [address] [place] [address] Care Team Providers Name Role Phone Elsewhere, Pcp Primary Care Provider Unavailable Reason for Referral Outpatient (Routine) - Closed Specialty Diagnoses / Procedures Referred By Contact Refer red To Contact Diagnoses Fatty Liver Failure Liver (HCC) Cirrhosis Alcoholic (HCC) Preoperative Exam Ascites Abnormal Liver Function Test Warren Hernández M.D., [facility] Region Procedures DX Chest AP or PA and Lateral 2 Views M.P.H. [address] [place] [address] Referral ID Status Reason Start Date Expiration Date Visits Requ ested Visits Authorized [id number] Closed 09/08/2021 09/08/2022 1 1 Reason for Visit Outpatient (Routine) - Closed Specialty Diagnoses / Procedures Referred By Contact Refer red To Contact Diagnoses Fatty Liver Failure Liver (HCC) Cirrhosis Alcoholic (HCC) Preoperative Exam Ascites Abnormal Liver Function Test Warrne Hernández M.D., [facility] Region Procedures DX Chest AP or PA and Lateral 2 Views M.P.H. [address] [place] [address] Referral ID Status Reason Start Date Expiration Date Visits Requ ested Visits Authorized [id number] Closed 09/08/2021 09/08/2022 1 1 Encounter Details Date Type Department Care Team Description 09/22/2021 Hospital Encounter Department of Deena Hernández fred; Radiology, [place] Warren Schaefer M.D., Greg segal Liver (HCC); Hospital, in M.P.H. Cirrhosis Alcoholic (HCC); [place], [place] [address] [email or web address] Preoperative Exam; [address] [place], [place] Ascites; [place] [address] Abnormal Liver Function Test [id number] [phone] Social History Tobacco Use Types Packs/Day Years [...] do you attend buddhist or Never 2021 quaker services? 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 Medications at [...] Internal Neda, 2 Medicine Vernell Perez [address] [place] [address] [place] [phone] Appointment Radiology Matthew Jerome 2 Y M.BSumaBSumaSLilian Moise [address] [place] [phone] Hospital Gastroenterology and Matthew Jerome 2 Encounter Hepatology Joshua RodriguezB.BSumaSLilian Moise [address] [place] [phone] Surgery Gastroenterology and Matthew Jerome ESOPHAG OGASTRODUODENOSCOPY 2 Hepatology Jennifer M.B.B.SSuma, Lilian [address] [place] [phone] Telemedicine Transplant 2 Lab Laboratory Medicine Karin, Olinda Gannon M.D., Ph.D. [address] [place] [phone] Lab Laboratory Medicine Olinda Frazier M.D., Ph.D. [address] [place] [phone] Office Visit Transplant Olinda Frazier M.D., Ph.D. [address] [place] [phone] Appointment Radiology Matthew Jerome 2 Y, MLilian Perez [address] [place] [phone] Appointment Gastroenterology and Adrianne, 2 Hepatology Yue Segal M.D. [address] [place] [phone] Office Visit Gastroenterology and Matthew Jerome 2 Hepatology Tyrell Rodriguez M.D. [address] [place] [phone] Appointment Radiology Matthew Jerome 2 Tyrell Rodriguez M.D. [address] [place] [phone] Scheduled Procedures Name Priority Associated [...] Preoperative Exam Ascites Abnormal Liver Function Test Cirrhosis Alcoholic (HCC) Hypertension Portal (HCC) documented in this encounter Care Teams Director Of Education And Training Relationship Specialty Start Date End Date Elsewhere, Pcp PCP - General Family Medicine 03/10/20 11/30/21 [facility] [place] lab 08/25/21 Ervin Schroeder MD Referring Provider Family Medicine 03/24/[address] [place] [address] documented as of this encounter
--- OUTSIDE RECORDS SUMMARY | 2022-01-31 04:29 | XMS_ITS | Encounter Summary ---
:1990 Author Organization [facility] Address [address] [place] [address] Care Team Providers Name Role Phone Elsewhere, Pcp Primary Care Provider Unavailable Reason for Visit Reason Comments [place] MED REQUEST Encounter Details Date Type Department Care Team Description 10/01/2021 Clinical Communication Department of KACY Crain MED REQUEST Nicotine Jessy Gannon M.A., [place], C.T.T.S. [facility], [address] [place] [address] in [facility] [phone] [place] [address] [place], [place] (Work) [phone] Social History Tobacco Use Types Packs/Day Years [...] do you attend orthodoxy or Never 2021 restorationist services? Do you belong to any clubs or No 07/17/2021 organizations such as orthodoxy groups, unions, [email or web address] or athletic groups, or school groups? How [...] or the highest technical, or vocational p Spreadsaveram degree you have received? 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 - 10/01/2021 12:13 PM CDT 2 mg MINI lozenges with refills, flavored [facility] in [place] documented in this encounter Plan of Treatment Upcoming Encounters Date Type Specialty Care Team Description Office Visit Community Internal Neda, Olinda Medicine Vernell Perez [address] [place] [phone] Appointment Radiology Matthew Jerome 2 Y, JoshuaB.BGraeme, Lilian [address] [place] [phone] Hospital Gastroenterology and Mousa, Matthew 2 Encounter Hepatology Tyrell Rodriguez M.D. [address] [place] [phone] Surgery Gastroenterology and Mousa, Matthew ESOPHAG OGASTRODUODENOSCOPY 2 Hepatology Tyrell Rodriguez, Lilian [address] [place] [phone] Telemedicine Transplant 2 Lab Laboratory Medicine Karin, 2 Adeline Gannon M.D., Ph.D. [address] [place] [phone] Lab Laboratory Medicine Karin, 2 Adeline Gannon M.D., Ph.D. [address] [place] [phone] Office Visit Transplant Karin, 2 Adeline Gannon M.D., Ph.D. [address] [place] [phone] Appointment Radiology LuisNew abdular 2 Y M.B.B.Kath, Lilian [address] [place] [phone] Appointment Gastroenterology and Adrianne, 2 Hepatology Yue Burciaga M.D. [address] [place] [phone] Office Visit Gastroenterology and Matthew Jerome 2 Hepatology Tyrell Rodriguez, Lilian [address] [place] [address] [phone] Appointment Radiology LuisMatthew abdul 2 Tyrell Rodriguez, Lilian [address] [place] [phone] Scheduled Procedures Name Priority Associated Diagnoses Date/Time ESOPHAGOGASTRODUODENOSCOPY Cirrhosis Alc oholic (HCC) 02/10/2022 8:45 AM CDT Hypertension Portal (HCC) documented as of this encounter Visit Diagnoses Not on filedocumented in this encounter Care Teams Principal Clerk Typist Relationship Specialty Start Date End Date Elsewhere, Pcp PCP - General Family Medicine 03/10/20 11/30/21 [facility] 08/25/21 Ervin Schroeder MD Referring Provider Family Medicine 03/24/[address] [place] [address] documented as of this encounter
--- OUTSIDE RECORDS SUMMARY | 2022-01-31 04:29 | XMS_ITS | Encounter Summary ---
:1990 Author Organization [facility] Address [address] [place] [address] Care Team Providers Name Role Phone Elsewhere, Pcp Primary Care Provider Unavailable Reason for Referral Outpatient (Routine) - Closed Specialty Diagnoses / Procedures Referred By Contact Refer red To Contact Diagnoses Fatty Liver Failure Liver (HCC) Cirrhosis Alcoholic (HCC) Preoperative Exam Ascites Abnormal Liver Function Test Warren Hernández M.D., [facility] Procedures Six Minute Walk M.P.H. [address] [place] [address] Referral ID Status Reason Start Date Expiration Date Visits Requ ested Visits Authorized [id number] Closed 09/08/2021 09/08/2022 1 1 Reason for Visit Outpatient (Routine) - Closed Specialty Diagnoses / Procedures Referred By Contact Refer red To Contact Diagnoses Fatty Liver Failure Liver (HCC) Cirrhosis Alcoholic (HCC) Preoperative Exam Ascites Abnormal Liver Function Test Warren Hernández M.D., [facility] [place] [facility] Procedures Six Minute Walk M.P.H. [address] [place] [address] Referral ID Status Reason Start Date Expiration Date Visits Requ ested Visits Authorized [id number] Closed 09/08/2021 09/08/2022 1 1 Encounter Details Date Type Department Care Team Description 09/24/2021 Hospital Encounter Department of [place], Fatty Li fred; Pulmonary Warren A, Failure Liver ( HCC); Rehabilitation Lilian, M.P.H. Cirrhosis Alcoholic (HCC); [facility] [address] [facility] Preoperative Exam; [address] [place], [place] Ascites; [place] [address] Abnormal Liver Function Test [phone] Social History Tobacco Use Types Packs/Day Years [...] do you attend yazidi or Never 2021 quaker services? 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 Last Filed [...] Community Internal Neda, 2 Medicine Vernell Perez [address] [place] [phone] Appointment Radiology [facility] 2 Y M.B.B.SSuma, MJules [address] [place] [phone] Hospital Gastroenterology and [facility] 2 Encounter Hepatology Jennifer M.B.B.S., MJules [address] [place] [phone] Surgery Gastroenterology and [facility] ESOPHAG OGASTRODUODENOSCOPY 2 Hepatology Jennifer M.B.B.S., MJules [address] [place] [phone] Telemedicine Transplant 2 Lab Laboratory Medicine Karin, 2 Adeline Gannon M.D., Ph.D. [address] [place] [phone] Lab Laboratory Medicine Karin, 2 Adeline Gannon M.D., Ph.D. [address] [place] [phone] Office Visit Transplant Karin, 2 Adeline Gannon M.D., Ph.D. [address] [place] [phone] Appointment Radiology Matthew Jerome 2 YElizabeth.B.BSumaSSuma, Lilian [address] [place] [phone] Appointment Gastroenterology and Adrianne, 2 Hepatology Yue Burciaga M.D. [address] [place] [phone] Office Visit Gastroenterology and Matthew Jerome 2 Hepatology Joshua RodriguezB.BLilian Bedolla [address] [place] [phone] Appointment Radiology Matthew Jerome 2 Y M.B.B.SSuma, Lilian [address] [place] [phone] Scheduled Procedures Name Priority Associated Diagnoses [...] (HCC) documented in this encounter Care Teams Apprentice Instrument Technician Relationship Specialty Start Date End Date Elsewhere, Pcp PCP - General Family Medicine 03/10/20 11/30/21 [facility] 08/25/21 Ervin Schroeder MD Referring Provider Family Medicine 03/24/[address] [place] [address] documented as of this encounter
--- OUTSIDE RECORDS SUMMARY | 2022-01-31 04:29 | XMS_ITS | Encounter Summary ---
:1990 Author Organization [facility] Address [address] [place] [address] Care Team Providers Name Role Phone Elsewhere, Pcp Primary Care Provider Unavailable Reason for Referral MRI/CAT/PET Scan (Routine) - Closed Specialty Diagnoses / Procedures Referred By Contact Refer red To Contact Radiology Diagnoses Fatty Liver Failure Liver (HCC) Cirrhosis Alcoholic (HCC) Preoperative Exam Ascites Abnormal Liver Function Test Warren Hernández M.D., [facility] Region Procedures CT Abdomen without and with IV Contrast M.P.H. [address] [place] [address] Referral ID Status Reason Start Date Expiration Date Visits Requ ested Visits Authorized [id number] Closed 09/08/2021 09/08/2022 1 1 Reason for Visit MRI/CAT/PET Scan (Routine) - Closed Specialty Diagnoses / Procedures Referred By Contact Refer red To Contact Radiology Diagnoses Fatty Liver Failure Liver (HCC) Cirrhosis Alcoholic (HCC) Preoperative Exam Ascites Abnormal Liver Function Test Warren Hernández M.D., [facility] Region Procedures CT Abdomen without and with IV Contrast M.P.H. [address] [place] [address] Referral ID Status Reason Start Date Expiration Date Visits Requ ested Visits Authorized [id number] Closed 09/08/2021 09/08/2022 1 1 Encounter Details Date Type Department Care Team Description 09/22/2021 Hospital Encounter Department of Deena Hernández fred; Radiology, [place] Warren Schaefer M.D., Greg e Liver (HCC); [facility], in M.P.H. Cirrhosis Alcoholic (HCC); [employer], [place] [address] [facility] Preoperative Exam; [address] [place], [place] Ascites; [place] [address] Abnormal Liver Function Test [id number] Social History Tobacco Use Types Packs/Day Years [...] do you attend jew or Never 2021 spiritism services? 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 Medications at [...] Community Internal Neda, Olinda Medicine Vernell Perez [address] [place] [phone] Appointment Radiology Matthew Jerome 2 Y M.B.B.SSuma, MJules [address] [place] [phone] Hospital Gastroenterology and Matthew Jerome 2 Encounter Hepatology Jennifer MSumaB.BSumaSSuma, Lilian [address] [place] [phone] Surgery Gastroenterology and Matthew Jerome ESOPHAG OGASTRODUODENOSCOPY 2 Hepatology Y M.B.B.SSuma, MJules [address] [place] [phone] Telemedicine Transplant 2 Lab Laboratory Medicine Karin, 2 Adeline Gannon M.D., Ph.D. [address] [place] [phone] Lab Laboratory Medicine Olinda Frazier M.D., Ph.D. [address] [place] [phone] Office Visit Transplant Olinda Frazier M.D., Ph.D. [address] [place] [phone] Appointment Radiology Matthew Jerome 2 Y, MSumaB.BLilian Bedolla [address] [place] [phone] Appointment Gastroenterology and Adrianne, 2 Hepatology Yue Burciaga M.D. [address] [place] [phone] Office Visit Gastroenterology and LuisMatthew abdul 2 Hepatology Tyrell Rodriguez M.D. [address] [place] [phone] Appointment Radiology LuisNew abdular 2 YTyrell M.D. [address] [place] [phone] Scheduled Procedures Name Priority Associated [...] dose documented in this encounter Care Teams Qualitative Executive Researcher Relationship Specialty Start Date End Date Elsewhere, Pcp PCP - General Family Medicine 03/10/20 11/30/21 [facility] [place] [facility] 08/25/21 Ervin Schroeder MD Referring Provider Family Medicine 03/24/[address] [place] [address] [phone] documented as of this encounter
--- OUTSIDE RECORDS SUMMARY | 2022-01-31 04:29 | XMS_ITS | Encounter Summary ---
:1990 Author Organization [facility] Address [address] [place] [address] Care Team Providers Name Role Phone Elsewhere, Pcp Primary Care Provider Unavailable Reason for Referral Physical Therapy (Routine) - Pending Review Specialty Diagnoses / Procedures Referred By Contact Refer red To Contact Diagnoses Edema Leg Matthew Jerome M.BSumaBSumaSSuam, [facility] Procedures PT Ongoing treatment .DSuma [address] [place] [phone] Referral ID Status Reason Start Date Expiration Date Visits V isits Requested Authorized [id number] Pending 09/24/2021 09/24/2022 99 99 Review Reason for Visit Physical Therapy (Routine) - Closed Specialty Diagnoses / Procedures Referred By Contact Refer red To Contact Diagnoses Edema Leg Matthew Jerome M.BSumaB.SSuma, [facility] Procedures PT Evaluate and treat M.D. [address] [place] [phone] Referral ID Status Reason Start Date Expiration Date Visits Requ ested Visits Authorized [id number] Closed 09/16/2021 09/16/2022 1 1 Encounter Details Date Type Department Care Team Description 09/24/2021 Comprehensive Visit Department of Physical Matthew Jerome M.B.B.S., Lilian [address] [place] [phone] Edema Leg Medicine and Jessy Haywood M.S., P.T., [facility] [address] [place] [phone] Rehabilitation in [place], [place] [address] [place] [phone] Social History Tobacco Use Types Packs/Day [...] do you attend scientology or Never 2021 taoist services? 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 Edema Leg Reason for Referral: Insurance: Payor: [employer] OR CARE / Plan: [facility] BLUE PLUS HMO / Product Type: MedicaidHMO [...] patient education handout A Guide to Lymphedema (FX3635), as well as signs and symptoms of cellulitis utilizing patient education handout Cellulitis (HL2660). - Instructed exercises to reduce lymphedema. - [...] Program: Exercises to Reduce Lower Extremity Swelling-MC 4426 Treatment Response: The patient reported that she [...] min Electronically signed by: Jessy Haywood M.S., P.Eric, MARRY 09/24/21 2:38 PM CDT documented in this encounter Plan of Treatment Upcoming Encounters Date Type Specialty Care Team Description Office Visit Community Internal [facility], 2 Medicine Vernell Perez [address] [place] [address] [phone] Appointment Radiology [facility] 2 YKishore.BGraeme, Lilian [address] [place] [phone] Hospital Gastroenterology and [facility] 2 Encounter Hepatology Vik RodriguezBGraeme, Lilian [address] [place] [phone] Surgery Gastroenterology and [facility] ESOPHAG OGASTRODUODENOSCOPY 2 Hepatology Joshua RodriguezB.BGraeme, Lilian [address] [place] [phone] Telemedicine Transplant 2 Lab Laboratory Medicine Olinda Frazier M.D., Ph.D. [address] [place] [phone] Lab Laboratory Medicine Olinda Frazier M.D., Ph.D. [address] [place] [phone] Office Visit Transplant Karin 2 Adeline Gannon M.D., Ph.D. [address] [place] [phone] Appointment Radiology Matthew Jerome 2 YJoshuaBSumaB.SSuma, MJules [address] [place] [phone] Appointment Gastroenterology and Olinda Silver Hepatology Yue Burciaga M.D. [address] [place] [phone] Office Visit Gastroenterology and Matthew Jerome 2 Hepatology Joshua RodriguezB.B.SSuma, MJules [address] [place] [phone] Appointment Radiology Matthew Jerome 2 Y M.B.B.SSuma, MJules [address] [place] [phone] Scheduled Procedures Name Priority Associated Diagnoses Date/Time ESOPHAGOGASTRODUODENOSCOPY Cirrhosis Alc oholic (HCC) 02/10/2022 8:45 AM CDT Hypertension Portal (HCC) documented as of this encounter Visit Diagnoses Diagnosis Edema Leg Cirrhosis Alcoholic (HCC) Hypertension Portal (HCC) documented in this encounter Care Teams Tree Puller Relationship Specialty Start Date End Date Elsewhere, Pcp PCP - General Family Medicine 03/10/20 11/30/21 [facility] [place] [facility] 08/25/21 Ervin Schroeder MD Referring Provider Family Medicine 03/24/[address] [place] [address] [phone] documented as of this encounter
--- OUTSIDE RECORDS SUMMARY | 2022-01-31 04:29 | XMS_ITS | Encounter Summary ---
:1990 Author Organization [facility] Address [address] [place] [address] Care Team Providers Name Role Phone Elsewhere, Pcp Primary Care Provider Unavailable Reason for Visit Transplant (Routine) - Closed Specialty Diagnoses / Procedures Referred By Contact Refer red To Contact Transplant Surgery / Diagnoses Cirrhosis Alcoholic (HCC) Abnormal Liver Function Test Ascites Pretransplant Recipient Evaluation Exam [facility]operative [facility] Lilian, M.P.H. 200 [place] [address] Referral ID Status Reason Start Date Expiration Date Visits Requ ested Visits Authorized [id number] Closed 08/25/2021 08/25/2022 1 1 Encounter Details Date Type Department Care Team Description 09/30/2021 Comprehensive Visit Warren Middleton M.D., M.P.H. [address] [place] [address] [phone] Cirrhosis Alcoholic (HCC); Luis [facility] Milagros Navarro M.S., RDN, LD [address] [place] [address] Abnormal Liver Function Test; Transplantation and Ascites; Clinical Regeneration Pretra nsplant Recipient Evaluation Exam; in [place], [facility] E xam [place] [address] [place] [address] Social History Tobacco Use Types Packs/Day Years [...] do you attend holiness or Never 2021 church services? 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 HS snack: lemon/jackson, apple, a few crackers or protein bar Physical Activity: She goes up/down her apartment stairs a few times per day to check her mail, run errands, etc. She has a pool pass for a local [employer]. Weight History Patient Weight: 09/24/21 : 58.9 [...] Care Team Description Office Visit Community Internal [facility], 2 Medicine Carlotta PerezCSuma 300 [place] [phone] Appointment Radiology Matthew Jerome 2 YTyrell M.D. [address] [place] [phone] [facility] Gastroenterology and Matthew Jerome 2 Encounter Hepatology Tyrell Rodriguez M.D. [address] [place] [phone] Surgery Gastroenterology and Matthew Jerome ESOPHAG OGASTRODUODENOSCOPY 2 Hepatology Tyrell Rodriguez M.D. [address] [place] [phone] Telemedicine Transplant 2 Lab Laboratory Medicine Olinda Frazier M.D., Ph.D. [address] [place] [phone] Lab Laboratory Medicine Olinda Frazier M.D., Ph.D. [address] [place] [phone] Office Visit Transplant Olinda Frazier M.D., Ph.D. [address] [place] [phone] Appointment Radiology Matthew Jerome 2 YVikB.SSuma, Lilian [address] [place] [phone] Appointment Gastroenterology and Adrianne, 2 Hepatology Yue Burciaga M.D. [address] [place] [phone] Office Visit Gastroenterology and Matthew Jerome 2 Hepatology Joshua RodriguezBSumaB.SLilian Moise [address] [place] [phone] Appointment Radiology Matthew Jerome 2 YJoshuaB.B.SLilian Moise [address] [place] [phone] Scheduled Procedures Name Priority Associated Diagnoses Date/Time ESOPHAGOGASTRODUODENOSCOPY Cirrhosis Alc oholic (HCC) 02/10/2022 8:45 AM CDT Hypertension Portal (HCC) documented as of this encounter Visit Diagnoses Diagnosis Cirrhosis Alcoholic (HCC) Abnormal Liver Function Test Ascites Pretransplant Recipient Evaluation Exam Preoperative Exam Cirrhosis Alcoholic (HCC) Hypertension Portal (HCC) documented in this encounter Care Teams Private Wealth Advisor Relationship Specialty Start Date End Date Elsewhere, Pcp PCP - General Family Medicine 03/10/20 11/30/[address] [facility] 08/25/21 Ervin Schroeder MD Referring Provider Family Medicine 03/24/[address] [place] [address] documented as of this encounter
--- OUTSIDE RECORDS SUMMARY | 2022-01-31 04:29 | XMS_ITS | Encounter Summary ---
:1990 Author Organization [facility] Address [address] [place] [address] Care Team Providers Name Role Phone Elsewhere, Pcp Primary Care Provider Unavailable Encounter Details Date Type Department Care Team Description 09/30/2021 Lab Department of Laboratory Alec Hernández Cirrhosis Alcoholic (HCC); Medicine and PathologySilvano M.D., M.P.H. Abnormal Liver Function Test; [place], [place] [address] [place] [address] Ascites; [place] [address] Pretransplant Recipient Evaluation Exam; [address] [place] [address] [place] [phone] Social History Tobacco Use Types Packs/Day Years [...] do you attend advent or Never 2021 evangelical services? Do you belong to any clubs or No 07/17/2021 organizations such as advent groups, unions, fraJNS Towers or athletic groups, or school groups? How [...] or the highest technical, or vocational p [facility] degree you have received? 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 - 10/03/2021 3:32 PM CDT I reviewed the attached results. Urinalysis is negative. Staph epidermidis is likely skin contamination. documented in this encounter Plan of Treatment Upcoming Encounters Date Type Specialty Care Team Description Office Visit Community Internal [facility], 2 Medicine Vernell Perez 300 [facility] [place] [id number] Appointment Radiology Matthew Jerome 2, M.BSumaBGraeme, Lilian [facility] [place] [address] Hospital Gastroenterology and Mochantell, Matthew 2 Encounter Hepatology Tyrell Rodriguez M.D. [address] [place] [phone] Surgery Gastroenterology and [place], Matthew ESOPHAG OGASTRODUODENOSCOPY 2 Hepatology Joshua RodriguezBLilian Staples [address] [place] [phone] Telemedicine Transplant 2 Lab Laboratory Medicine Karin, 2 Adeline Gannon M.D., Ph.D. [address] [place] [phone] Lab Laboratory Medicine Karin, 2 Adeline Gannon M.D., Ph.D. [address] [place] [phone] Office Visit Transplant Karin, 2 Adeline Gannon M.D., Ph.D. [address] [place] [address] [phone] Appointment Radiology LuischantellMatthew 2 YElizabeth.B.B.Kath, Lilian [address] [place] [phone] Appointment Gastroenterology and Adrianne, 2 Hepatology Yue Burciaga M.D. [address] [place] [phone] Office Visit Gastroenterology and Matthew Jerome 2 Hepatology YTyrell M.D. 1025 [place] [phone] Appointment Radiology LuisMatthew abdul 2 Tyrell Rodriguez M.D. 1025 [place] [phone] Scheduled Procedures Name Priority Associated Diagnoses Date/Time ESOPHAGOGASTRODUODENOSCOPY Cirrhosis Alc oholic (HCC) 02/10/2022 8:45 AM CDT Hypertension Portal (HCC) documented as of this encounter Procedures Procedure Name Priority Date/Time Associated Comments Diagnosis [place] OSMOLALITY ASSAY Routine 09/30/2021 8:23 AM Re [...] (ABNORMAL) Dipstick, Urine (09/30/2021 8:23 AM CDT) [facility] gist Method Time Signature Hemoglobin, Trace (A) [...] City/State/ZIP Code Phon e Number [facility] - [address] [place], [place] [address] [place] [address] [place] [address] Osmolality, Urine (09/30/2021 8:23 AM CDT) athologist [facility] Osmolality, U 628 150 - 1150 09/30/2021 DTL mOsm/kg 9:41 AM CDT Specimen Anatomical Collection Method Collection Time Receive d Time (Source) Location / / Volume Laterality Urine 09/30/2021 8:23 AM 2 8:24 CDT AM CDT Warren Hernández M.D., M.P.H. LAB URINE ORDERABLES Performing Organization Address City/[facility]/ZIP [facility] Phon e Number [facility] - [address] [place], [place] [address] [place] [address] [facility] pH, Random, Urine (09/30/2021 8:23 AM CDT) athologist Signature pH, Random, U 5.7 4.5 - 8.0 09/30/2021 DTL 9:41 AM CDT Specimen Anatomical Collection Method Collection Time Receive d Time (Source) Location / / Volume Laterality Urine 09/30/2021 8:23 AM 2 8:24 CDT AM CDT Warren Hernández M.D., M.P.H. LAB URINE ORDERABLES Performing Organization Address [facility] Phon e Number [facility] - 200 [place], [place] [address] [place] [address] Microscopic Manual (09/30/2021 8:23 AM CDT) P athologist Signature Microscopy Normal 09/30/2021 DTL 9:10 [...] M.P.H. LAB URINE ORDERABLES Performing Organization Address [facility] Phon e Number [facility] - 200 [place], [place] [address] [place] [address] Ethyl Glucuronide Screen with Reflex, Urine (09/30/2021 8:23 AM CDT) Patholo gist Method Time Signature Ethyl Negative Cutoff: 09/30/2021 SDSC Glucuronide Scrn 500 ng/mL 11:12 AM CDT w/Reflex, U Comment: ----ADDITIONAL INFORMATION---- This test was developed and its performa nce characteristics determined by [facility] in a manner consistent with [...] City/State/ZIP Code Phon e Number [facility] [address] [place], [place] [address] [facility] [place] [address] Laboratory Medicine and Pathology [address] [place] (ABNORMAL) Bacterial Culture, Aerobic + Susc, Urine (09/30/2021 8:23 AM CDT) Component Value Ref Test Analysis Performed At Patholo gist Range Method Time Signature Urine Culture STAPHYLOCOCCUS [...] City/State/ZIP Code Phon e Number [facility] - [address] [place], [place] [address] [facility] [place] [address] Laboratories-[facility] [address] (ABNORMAL) Drug Abuse Survey with Confirmation, Panel 9, Urine (09/30/2021 8:23 AM CDT) Component Value Ref Test Analysis Performed At [facility] Range Method Time Signature Alcohol Negative [...] from the man flakitar's instructions. Its performance characteristics were determi foreign by [facility] in a manner consistent with CLIA requirements. This test has not been cleared or approved by the U.S. Food and Drug Administration . Specimen Anatomical Collection Method Collection Time Receive d Time (Source) Location / / Volume Laterality Urine (Urine, 09/30/2021 8:23 AM 10/01/19 22 Midstream) CDT 10:00 AM CDT Warren Hernández M.D., M.P.H. LAB URINE ORDERABLES Performing Organization Address City/[facility]/ZIP [facility] Phon e Number [facility] [address] [place], [place] [address] [facility] [place] [address] Laboratory Medicine and Pathology [address] [place] Urinalysis with Microscopic: Urine, Midstream (09/30/2021 8:23 AM CDT) [facility] gist Method Time Signature Source Urine, Urine, 09/30/2021 [...] Urine (Urine, 09/30/2021 8:23 AM 10/01/19 22 8:23 Midstream) CDT AM CDT Warren Hernández M.D., M.P.H. LAB URINE ORDERABLES Performing Organization Address City/[facility]/ZIP Code Phon e Number [facility] - [address] [place], [place] [address] [facility] [place] [address] Laboratories-[facility] [employer] [address] documented in this encounter Visit Diagnoses Diagnosis Cirrhosis Alcoholic (HCC) Abnormal Liver Function Test Ascites Pretransplant Recipient Evaluation Exam Preoperative Exam Cirrhosis Alcoholic (HCC) Hypertension Portal (HCC) documented in this encounter Care Teams Asbestos Coverer Relationship Specialty Start Date End Date Elsewhere, Pcp PCP - General Family Medicine 03/10/20 11/30/21 [facility] 08/25/21 Ervin Schroeder MD Referring Provider Family Medicine 03/24/[address] [place] [address] documented as of this encounter
--- OUTSIDE RECORDS SUMMARY | 2022-01-31 04:30 | XMS_ITS | Encounter Summary ---
:1990 Author Organization [facility] Address [address] [place] [address] Care Team Providers Name Role Phone Elsewhere, Pcp Primary Care Provider Unavailable Encounter Details Date Type Department Care Team Description 08/29/2021 Orders Only Department of Mousa, Matthew Y, Deficiency C oagulation Acquired (HCC) (Primary Dx); Gastroenterology in Joshua Santillan Cirrhosis Alcoholic (HCC) [place], [place] 1025 [facility] 1025 [place] [address] [phone] Social History Tobacco Use Types Packs/Day Years [...] do you attend muslim or Never 2021 zoroastrianism services? Do you belong to any clubs or No 07/17/2021 organizations such as muslim groups, unions, fraDavis Medical Holdings or athletic groups, or school groups? 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 documented as of this encounter Plan of Treatment Upcoming Encounters Date Type Specialty Care Team Description Office Visit Community Internal [facility], 2 Medicine Vernell Perez 300 [place] [phone] Appointment Radiology Matthew Jerome 2 Tyrell Rodriguez, MJules 10[address] [place] [address] Hospital Gastroenterology and Matthew Jerome 2 Encounter Hepatology Tyrell Rodriguez, MJules 1025 [place] [phone] Surgery Gastroenterology and Matthew Jerome ESOPHAG OGASTRODUODENOSCOPY 2 Hepatology Vik RodriguezBLilian Bedolla [address] [place] [phone] Telemedicine Transplant 2 Lab Laboratory Medicine Karin, 2 Adeline Gannon M.D., Ph.D. [address] [place] [phone] Lab Laboratory Medicine Karin, 2 Adeline Gannon M.D., Ph.D. [address] [place] [phone] Office Visit Transplant Karin, 2 Adeline Gannon M.D., Ph.D. [address] [place] [phone] Appointment Radiology Matthew Jerome 2 YElizabeth.B.B.SSuma, Lilian [address] [place] [phone] Appointment Gastroenterology and Adrianne, 2 Hepatology Yue Burciaga M.D. [address] [place] [phone] Office Visit Gastroenterology and Matthew Jerome 2 Hepatology Joshua RodriguezB.B.SLilian Moise [address] [place] [phone] Appointment Radiology Matthew Jerome 2 Y M.B.B.SLilian Moise [address] [place] [phone] Scheduled Procedures Name Priority Associated Diagnoses Date/Time ESOPHAGOGASTRODUODENOSCOPY Cirrhosis Alc oholic (HCC) 02/10/2022 8:45 AM CDT Hypertension Portal (HCC) documented as of this encounter Visit Diagnoses Diagnosis Deficiency Coagulation Acquired (HCC) - Primary Cirrhosis Alcoholic (HCC) Cirrhosis Alcoholic (HCC) Hypertension Portal (HCC) documented in this encounter Care Teams Diet Consultant Relationship Specialty Start Date End Date Elsewhere, Pcp PCP - General Family Medicine 03/10/20 11/30/21 [facility] 08/25/21 Ervin Schroeder MD Referring Provider Family Medicine 03/24/[address] [place] [address] documented as of this encounter
--- OUTSIDE RECORDS SUMMARY | 2022-01-31 04:30 | XMS_ITS | Encounter Summary ---
:1990 Author Organization [facility] Address [address] [place] [address] Care Team Providers Name Role Phone Elsewhere, Pcp Primary Care Provider Unavailable Encounter Details Date Type Department Care Team Description 09/12/2021 Clinical Communication Department of Matthew Jerome Gastroenterology in Joshua Santillan[address] [place] [phone] Social History Tobacco Use Types Packs/Day Years [...] do you attend moravian or Never 2021 buddhism services? 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 - 09/15/2021 9:47 PM CDT Thanks so much Olga Telephone Encounter - Priscilla Castorena - 09/12/2021 12:02 PM CDT Patient was supposed to have an appointment for PMR CONS PT at [facility]. The appt has been cancelleddue to [...] Community Internal Neda, Olinda Medicine Vernell Perez [address] [place] [phone] Appointment Radiology Matthew Jerome 2 Y, M.B.B.SSuma, MJules [address] [place] [phone] Hospital Gastroenterology and Prchantell Matthew 2 Encounter Hepatology Jennifer M.B.B.SSuma, MJules [address] [place] [phone] Surgery Gastroenterology and Queenie Matthew ESOPHAG OGASTRODUODENOSCOPY 2 Hepatology Y M.B.B.S., M.Jeri [address] [place] [phone] Telemedicine Transplant 2 Lab Laboratory Medicine Karin, 2 Adeline Gannon M.D., Ph.D. [address] [place] [phone] Lab Laboratory Medicine Olinda Frazier M.D., Ph.D. [address] [place] [phone] Office Visit Transplant Olinda Frazier M.D., Ph.D. [address] [place] [phone] Appointment Radiology Matthew Jerome 2 Y M.B.B.SSuma, Lilian 10[address] [place] [phone] Appointment Gastroenterology and Adrianne, 2 Hepatology Yue Burciaga M.D. [address] [place] [phone] Office Visit Gastroenterology and Matthew Jerome 2 Hepatology Joshua RodriguezB.B.SSuma, Lilian 1025 [place] [phone] Appointment Radiology Matthew Jerome 2 YElizabeth.B.B.SSuma, Lilian 1025 [place] [phone] Scheduled Procedures Name Priority Associated Diagnoses Date/Time ESOPHAGOGASTRODUODENOSCOPY Cirrhosis Alc oholic (HCC) 02/10/2022 8:45 AM CDT Hypertension Portal (HCC) documented as of this encounter Visit Diagnoses Diagnosis Edema Leg - Primary Cirrhosis Alcoholic (HCC) Hypertension Portal (HCC) documented in this encounter Additional Health Concerns Infection Onset Date Last Indicated Resolved Time COVID19 08/29/2021 08/29/2021 09/18/2021 8:31 AM CDT documented as of this encounter Care Teams Bottom Cementer Relationship Specialty Start Date End Date Elsewhere, Pcp PCP - General Family Medicine 03/10/20 11/30/21 [facility] [place] [facility] 08/25/21 Ervin Schroeder MD Referring Provider Family Medicine 03/24/[address] [place] [address] documented as of this encounter
--- OUTSIDE RECORDS SUMMARY | 2022-01-31 04:30 | XMS_ITS | Encounter Summary ---
:1990 Author Organization [facility] Address [address] [place] [address] Care Team Providers Name Role Phone Elsewhere, Pcp Primary Care Provider Unavailable Encounter Details Date Type Department Care Team Description 09/03/2021 Clinical Communication Division of Marco Zimmerman, Internal Medicine, [facility] in [address] [place] [address] [place] [phone] [place], [place] [phone] (Work) [phone] Social History Tobacco Use Types Packs/Day Years [...] do you attend yazidism or Never 2021 catholic services? 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 - 09/03/2021 5:26 PM CDT [facility] TELEPHONE COMMUNICATION NOTE Gas Pump Attendant: None The patient was called regarding a [...] your primary care provider or present to [facility] emergency department for evaluation. Treatment Options [...] used: Nursing or Provider judgement, [facility] workflow, [facility] Protocols Marco Alberto M.D. [place] COVID Care Team [facility] documented in this encounter Plan of Treatment Upcoming Encounters Date Type Specialty Care Team Description Office Visit Community Internal [facility], Medicine Vernell Perez [address] [place] [phone] Appointment Radiology Matthew Jerome 2 YVikBGraeme, Lilian [address] [place] [phone] Hospital Gastroenterology and Queenie Matthew 2 Encounter Hepatology Vik RodriguezBLilian Bedolla [address] [place] [phone] Surgery Gastroenterology and Queenie Matthew ESOPHAG OGASTRODUODENOSCOPY 2 Hepatology Vik RodriguezBLilian Bedolla [address] [place] [phone] Telemedicine Transplant 2 Lab Laboratory Medicine Karin, Olinda Gannon M.D., Ph.D. [address] [place] [phone] Lab Laboratory Medicine Karni, 2 Adeline Gannon M.D., Ph.D. [address] [place] [phone] Office Visit Transplant Karni, Olinda Gannon M.D., Ph.D. [address] [place] [phone] Appointment Radiology Matthew Jerome 2 YJoshuaBSumaBGraeme, Lilian [address] [place] [phone] Appointment Gastroenterology and Adrianne, 2 Hepatology Yue Burciaga M.D. [address] [place] [phone] Office Visit Gastroenterology and Matthew Jerome 2 Hepatology Tyrell Rodriguez M.D. 1025 [place] [phone] Appointment Radiology Matthew Jerome 2 Tyrell Rodriguez M.D. 1025 [place] [phone] Scheduled Procedures Name Priority Associated Diagnoses Date/Time ESOPHAGOGASTRODUODENOSCOPY Cirrhosis Alc oholic (HCC) 02/10/2022 8:45 AM CDT Hypertension Portal (HCC) documented as of this encounter Visit Diagnoses Not on filedocumented in this encounter Additional Health Concerns Infection Onset Date Last Indicated Resolved Time COVID19 08/29/2021 08/29/2021 09/18/2021 8:31 AM CDT documented as of this encounter Care Teams Technical Publications Manager Relationship Specialty Start Date End Date Elsewhere, Pcp PCP - General Family Medicine 03/10/20 11/30/21 [facility] [place] [facility] 08/25/21 Ervin Schroeder MD Referring Provider Family Medicine 03/24/[address] [place] [address] documented as of this encounter
--- OUTSIDE RECORDS SUMMARY | 2022-01-31 04:30 | XMS_ITS | Encounter Summary ---
:1990 Author Organization [facility] Address [address] [place] [address] Care Team Providers Name Role Phone Elsewhere, Pcp Primary Care Provider Unavailable Encounter Details Date Type Department Care Team Description 09/05/2021 Clinical Communication Department of Kerry Naranjo Gastroenterology in [place], [place] M.S.N., R.N. 1025 [facility] 1025 [place] [address] [place], [place] [phone] Social History Tobacco Use Types Packs/Day [...] do you attend sabianism or Never 2021 zoroastrian services? 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 Nayana, Kerry documented in this encounter Plan of Treatment Upcoming Encounters Date Type Specialty Care Team Description Office Visit Community Internal [facility], 2 Medicine Vernell Perez [address] [place] [phone] Appointment Radiology [facility] Matthew 2 YKishore.B.Kath, Lilian [address] [place] [phone] Hospital Gastroenterology and [facility] [place] 2 Encounter Hepatology Vik RodriguezBGraeme, Lilian [address] [place] [phone] Surgery Gastroenterology and [facility] [place] ESOPHAG OGASTRODUODENOSCOPY 2 Hepatology Vik RodriguezBGraeme, MJules [address] [place] [phone] Telemedicine Transplant 2 Lab Laboratory Medicine Karin, Olinda Gannon M.D., Ph.D. [address] [place] [phone] Lab Laboratory Medicine Olinda Frazier M.D., Ph.D. [address] [place] [phone] Office Visit Transplant Olinda Frazier M.D., Ph.D. [address] [place] [address] Appointment Radiology Matthew Jerome 2 YTyrell, Lilian 1025 [place] [address] Appointment Gastroenterology and [place], 2 Hepatology Yue Burciaga M.D. [address] [place] [address] Office Visit Gastroenterology and Matthew Jerome 2 Hepatology Tyrell Rodriguez M.D. 1025 [place] [phone] Appointment Radiology Matthew Jerome 2 YTyrell M.D. 1025 [place] [phone] Scheduled Orders Name Type Priority Associated Diagnoses [...] Coagulation Acquired (HCC) Pretransplant Recipient Evaluation Exam Cirrhosis Alcoholic (HCC) Hypertension Portal (HCC) documented in this encounter Additional Health Concerns Infection Onset Date Last Indicated Resolved Time COVID19 08/29/2021 08/29/2021 09/18/2021 8:31 AM CDT documented as of this encounter Care Teams Solvent Station Attendant Relationship Specialty Start Date End Date Elsewhere, Pcp PCP - General Family Medicine 03/10/20 11/30/21 [facility] the [facility] 08/25/21 Ervin Schroeder MD Referring Provider Family Medicine 03/24/[address] [place] [address] documented as of this encounter
--- OUTSIDE RECORDS SUMMARY | 2022-01-31 04:30 | XMS_ITS | Encounter Summary ---
:1990 Author Organization [facility] Address [address] [place] [address] Care Team Providers Name Role Phone Elsewhere, Pcp Primary Care Provider Unavailable Encounter Details Date Type Department Care Team Description 09/01/2021 Clinical Communication Department of Kerry Naranjo Gastroenterology in [place], [place] M.S.N., R.N. 1025 [facility] 1025 [place] [address] [place], [place] [phone] Social History Tobacco Use Types Packs/Day [...] do you attend religion or Never 2021 quaker services? 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 [facility]5 [place] [address] Hospital Gastroenterology and Matthew Jerome 2 Encounter Hepatology Joshua RodriguezBSumaBSumaSSuma, Lilian 1025 [place] [phone] Surgery Gastroenterology and Queenie Matthew ESOPHAG OGASTRODUODENOSCOPY 2 Hepatology Joshua RodriguezBSumaBLilian Bedolla [address] [place] [phone] Telemedicine Transplant 2 Lab Laboratory Medicine Karin, 2 Adeline Gannon M.D., Ph.D. [address] [place] [phone] Lab Laboratory Medicine Karin, 2 Adeline Gannon M.D., Ph.D. [address] [place] [phone] Office Visit Transplant Karin, 2 Adeline Gannon M.D., Ph.D. [address] [place] [phone] Appointment Radiology Matthew Jerome 2 Jennifer M.B.B.SLilian Moise [address] [place] [phone] Appointment Gastroenterology and [place], 2 Hepatology Yue Burciaga M.D. [address] [place] [phone] Office Visit Gastroenterology and Queenie Matthew 2 Hepatology Jennifer M.Lilian Hudson 1025 [place] [address] Appointment Radiology Matthew Jerome 2 Y, Lilian Santillan 1025 [place] [address] Scheduled Procedures Name Priority Associated Diagnoses Date/Time ESOPHAGOGASTRODUODENOSCOPY Cirrhosis Alc oholic (HCC) 02/10/2022 8:45 AM CDT Hypertension Portal (HCC) documented as of this encounter Visit Diagnoses Not on filedocumented in this encounter Additional Health Concerns Infection Onset Date Last Indicated Resolved Time COVID19 08/29/2021 08/29/2021 09/18/2021 8:31 AM CDT documented as of this encounter Care Teams Communications Specialist Relationship Specialty Start Date End Date Elsewhere, Pcp PCP - General Family Medicine 03/10/20 11/30/21 [facility] [place] lab 08/25/21 Ervin Schroeder MD Referring Provider Family Medicine 03/24/21 [facility] [address], [place] [address] documented as of this encounter
--- OUTSIDE RECORDS SUMMARY | 2022-01-31 04:30 | XMS_ITS | Encounter Summary ---
:1990 Author Organization [facility] Address [address] [place] [address] Care Team Providers Name Role Phone Elsewhere, Pcp Primary Care Provider Unavailable Reason for Visit Reason Comments Patient Education Encounter Details Date Type Department Care Team Description 09/03/2021 Clinical Communication Department of Loreta Vazquez ent Education Infusion Therapy in [place], [place]. [place], [place] [address] [place] [address] Social History Tobacco Use Types [...] do you attend zoroastrian or Never 2021 uatsdin services? 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 [address] [place] [phone] Hospital Gastroenterology and Matthew Jerome 2 Encounter Hepatology Tyrell Rodirguez M.D. [address] [place] [phone] Surgery Gastroenterology and [place] ESOPHAG OGASTRODUODENOSCOPY 2 Hepatology Vik RodriguezBGraeme, Lilian [address] [place] [phone] Telemedicine Transplant 2 Lab Laboratory Medicine Olinda Frazier M.D., Ph.D. [address] [place] [phone] Lab Laboratory Medicine Olinda Frazier M.D., Ph.D. [address] [place] [phone] Office Visit Transplant Karin, Olinda Gannon M.D., Ph.D. [address] [place] [phone] Appointment Radiology Matthew Jerome 2 YJoshuaB.B.SSuma, Lilian [address] [place] [phone] Appointment Gastroenterology and [place], 2 Hepatology Yue Burciaga M.D. [address] [place] [phone] Office Visit Gastroenterology and Matthew Jerome 2 Hepatology Joshua RodriguezB.B.SLilian Moise [address] [place] [phone] Appointment Radiology Matthew Jerome 2 YElizabeth.B.B.SLilian Moise [address] [place] [phone] Scheduled Procedures Name Priority Associated Diagnoses Date/Time ESOPHAGOGASTRODUODENOSCOPY Cirrhosis Alc oholic (HCC) 02/10/2022 8:45 AM CDT Hypertension Portal (HCC) documented as of this encounter Visit Diagnoses Not on filedocumented in this encounter Additional Health Concerns Infection Onset Date Last Indicated Resolved Time COVID19 08/29/2021 08/29/2021 09/18/2021 8:31 AM CDT documented as of this encounter Care Teams Supervisor Quality Control Relationship Specialty Start Date End Date Elsewhere, Pcp PCP - General Family Medicine 03/10/20 11/30/21 [facility] [place] lab 08/25/21 Ervin Schroeder MD Referring Provider Family Medicine 03/24/[address] [place] [address] documented as of this encounter
--- OUTSIDE RECORDS SUMMARY | 2022-01-31 04:30 | XMS_ITS | Encounter Summary ---
:1990 Author Organization [facility] Address [address] [place] [address] Care Team Providers Name Role Phone Elsewhere, Pcp Primary Care Provider Unavailable Encounter Details Date Type Department Care Team Description 09/19/2021 Hospital Encounter Department of Matthew Jerome Abnorm al Liver Laboratory Medicine M.B.B.SSuma, M. Slick. Function Test in [place], [facility]5 [place], [place] 300 [facility] [address] [facility] [place] [phone] (Work) [phone] Social History Tobacco Use Types Packs/Day Years [...] do you attend denominational or Never 2021 synagogue services? 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 [address] [place] [phone] Surgery Gastroenterology and [facility], [place] ESOPHAG OGASTRODUODENOSCOPY 2 Hepatology Tyrell Rodriguez, Lilian [address] [place] [phone] Telemedicine Transplant 2 Lab Laboratory Medicine Karin, 2 Adeline Gannon M.D., Ph.D. [address] [place] [phone] Lab Laboratory Medicine Olinda Frazier M.D., Ph.D. [address] [place] [phone] Office Visit Transplant Olinda Frazier M.D., Ph.D. [address] [place] [phone] Appointment Radiology Matthew Jerome 2 YTyrell, Lilian [address] [place] [phone] Appointment Gastroenterology and Olinda Silver Hepatology Yue Burciaga M.D. [address] [place] [phone] Office Visit Gastroenterology and Matthew Jerome 2 Hepatology Vik RodriguezBGraeme, Lilian [address] [place] [phone] Appointment Radiology Matthew Jerome 2 YVikBGraeme, Lilian [address] [place] [address] [phone] Scheduled Procedures Name Priority Associated Diagnoses Date/Time [...] CDT eGFR-Black/Afric >90 >=60 09/19/2021 OWAT an Greenlandic mL/min/BSA 4:09 PM CDT Comment: ----ADDITIONAL INFORMATION---- [...] Address City/State/ZIP Code Phon e Number [facility]- [address] [place] [address] [place] [address] System in [place] [address] documented in this encounter Visit Diagnoses Diagnosis Abnormal Liver Function Test Cirrhosis Alcoholic (HCC) Hypertension Portal (HCC) documented in this encounter Care Teams Potato Chip Packaging Machine Operator Relationship Specialty Start Date End Date Elsewhere, Pcp PCP - General Family Medicine 03/10/20 11/30/21 [facility] [place] lab 08/25/21 Ervin Schroeder MD Referring Provider Family Medicine 03/24/[address] [place] [address] documented as of this encounter
--- OUTSIDE RECORDS SUMMARY | 2022-01-31 04:30 | XMS_ITS | Encounter Summary ---
:1990 Author Organization [facility] Address [address] [place] [address] Care Team Providers Name Role Phone Elsewhere, Pcp Primary Care Provider Unavailable Encounter Details Date Type Department Care Team Description 08/31/2021 Nurse Triage Department of [facility] Naila Walters R.N. Medicine, [facility], in [address] [place] [address] [place] [phone] [place] [address] [phone] Social History Tobacco Use Types Packs/Day Years [...] do you attend anabaptist or Never 2021 episcopalian services? 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 - 08/31/2021 10:46 AM CDT Patient reports receiving a text message from [place] [facility] regarding her recent positive Covid test. The text provided a link which asked for a code. Patient is seeking more information regarding code. Unable to answer question at this time. Patient denies any worsening symptoms for triage at this time. Patient will check her email for more information from the [facility]. documented in this encounter Plan of Treatment Upcoming Encounters Date Type Specialty Care Team Description Office Visit Community Internal [place], 2 Medicine Vernell Perez [address] [place] [phone] Appointment Radiology Matthew Jerome 2 Y, MLilian Perez 1025 [place] [phone] [facility] Gastroenterology and [facility] 2 Encounter Hepatology Tyrell Rodriguez M.D. [address] [place] [phone] Surgery Gastroenterology and [facility] [place] ESOPHAG OGASTRODUODENOSCOPY 2 Hepatology Tyrell Rodriguez M.D. [address] [place] [phone] Telemedicine Transplant 2 Lab Laboratory Medicine Karin, 2 Adeline Gannon M.D., Ph.D. [address] [place] [phone] Lab Laboratory Medicine Karin, 2 Adeline Gannon M.D., Ph.D. [address] [place] [phone] Office Visit Transplant Karin, 2 Adeline Gannon M.D., Ph.D. [address] [place] [phone] Appointment Radiology [facility] 2 Joshua RodriguezBSumaBGraeme, Lilian [address] [place] [phone] Appointment Gastroenterology and [place], 2 Hepatology Yue Burciaga M.D. [address] [place] [phone] Office Visit Gastroenterology and Matthew Jerome 2 Hepatology YTyrell, Lilian 1025 [place] [phone] Appointment Radiology LuisMatthew abdul 2 Tyrell Rodriguez M.D. 1025 [place] [phone] Scheduled Procedures Name Priority Associated Diagnoses Date/Time ESOPHAGOGASTRODUODENOSCOPY Cirrhosis Alc oholic (HCC) 02/10/2022 8:45 AM CDT Hypertension Portal (HCC) documented as of this encounter Visit Diagnoses Not on filedocumented in this encounter Additional Health Concerns Infection Onset Date Last Indicated Resolved Time COVID19 08/29/2021 08/29/2021 09/18/2021 8:31 AM CDT documented as of this encounter Care Teams Director Of Managed Care Relationship Specialty Start Date End Date Elsewhere, Pcp PCP - General Family Medicine 03/10/20 11/30/21 [facility]- [place] lab 08/25/21 Ervin Schroeder MD Referring Provider Family Medicine 03/24/[address] [place] [address] documented as of this encounter
--- OUTSIDE RECORDS SUMMARY | 2022-01-31 04:30 | XMS_ITS | Encounter Summary ---
:1990 Author Organization [facility] Address [address] [place] [address] Care Team Providers Name Role Phone Elsewhere, Pcp Primary Care Provider Unavailable Reason for Visit Reason Comments Medication Question Encounter Details Date Type Department Care Team Description 08/31/2021 Nurse Triage Department of [facility] Misty dicjenaro Question Medicine, [facility], in [place], [address] [facility], [place] [address] [place] [phone] [place] [address] [phone] Social History Tobacco Use Types Packs/Day Years [...] or relatives? How often do you attend baptist or Never 2021 mormonism services? 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 ALTERNATE DISPOSITION - CALL DOCTOR WITHIN 24 HOURS: * The patient's healthcare provider (doctor, PROFESSOR OF APOLOGETICS, or PA) may be able to handle [...] Community Internal [place], 2 Medicine Vernell Perez [address] [place] [address] [phone] Appointment Radiology [facility] 2 YElizabeth.B.B.S., MSumaDSuma [address] [place] [phone] Hospital Gastroenterology and [facility] 2 Encounter Hepatology Elizabeth Rodriguez.B.B.SSuma, MJules [address] [place] [phone] Surgery Gastroenterology and [facility] ESOPHAG OGASTRODUODENOSCOPY 2 Hepatology Elizabeth Rodriguez.B.B.S., MJules [address] [place] [address] [phone] Telemedicine Transplant 2 Lab Laboratory Medicine Karin, 2 Adeline Gannon M.D., Ph.D. [address] [place] [address] [phone] Lab Laboratory Medicine Karin, Olinda Gannon M.D., Ph.D. [address] [place] [address] [phone] Office Visit Transplant Karin, 2 Adeline Gannon M.D., Ph.D. [address] [place] [address] [phone] Appointment Radiology Matthew Jerome 2 Y, Elizabeth.B.B.SSuma, MJules [address] [place] [phone] Appointment Gastroenterology and [place], 2 Hepatology Yue Burciaga M.D. [address] [place] [address] [phone] Office Visit Gastroenterology and Matthew Jerome 2 Hepatology Joshua RodriguezB.B.SSuma, Lilian [address] [place] [phone] Appointment Radiology Matthew Jerome 2 Y M.B.B.SSuma, MJules [address] [place] [address] [phone] Scheduled Procedures Name Priority Associated Diagnoses Date/Time ESOPHAGOGASTRODUODENOSCOPY Cirrhosis Alc oholic (HCC) 02/10/2022 8:45 AM CDT Hypertension Portal (HCC) documented as of this encounter Visit Diagnoses Not on filedocumented in this encounter Additional Health Concerns Infection Onset Date Last Indicated Resolved Time COVID19 08/29/2021 08/29/2021 09/18/2021 8:31 AM CDT documented as of this encounter Care Teams Insulation Helper Relationship Specialty Start Date End Date Elsewhere, Pcp PCP - General Family Medicine 03/10/20 11/30/21 [facility] [place] lab 08/25/21 Ervin Schroeder MD Referring Provider Family Medicine 03/24/[address] [place] [address] [phone] (work) documented as of this encounter
--- OUTSIDE RECORDS SUMMARY | 2022-01-31 04:30 | XMS_ITS | Encounter Summary ---
:1990 Author Organization [facility] Address [address] [place] [address] Care Team Providers Name Role Phone Elsewhere, Pcp Primary Care Provider Unavailable Encounter Details Date Type Department Care Team Description 09/09/2021 Orders Only Department of Mousa, Matthew Y, Abnormal Angelica er Gastroenterology in M.B.B.S. M. Slick. Function Test [address] (Primary Dx) 1025 [place] [address] [phone] Social History Tobacco Use Types Packs/Day Years [...] do you attend rastafari or Never 2021 jehovah's witness services? Do you belong to any clubs or No 07/17/2021 organizations such as rastafari groups, unions, fraOmbitron or athletic groups, or school groups? 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 encounter Plan of Treatment Upcoming Encounters Date Type Specialty Care Team Description Office Visit Community Internal [facility], 2 Medicine Vernell Perez 300 [place] [phone] Appointment Radiology Matthew Jerome 2 Vik RodriguezBGraeme, MJules 1025 [place] [phone] Hospital Gastroenterology and Matthew Jerome 2 Encounter Hepatology Tyrell Rodriguez, Lilian 1025 [place] [phone] Surgery Gastroenterology and Matthew Jerome ESOPHAG OGASTRODUODENOSCOPY 2 Hepatology Joshua RodriguezBSumaBLilian Bedolla [address] [place] [phone] Telemedicine Transplant 2 Lab Laboratory Medicine Karin, 2 Adeline Gannon M.D., Ph.D. [address] [place] [phone] Lab Laboratory Medicine Karin, 2 Adeline Gannon M.D., Ph.D. [address] [place] [phone] Office Visit Transplant Karin, 2 Adeline Gannon M.D., Ph.D. [address] [place] [phone] Appointment Radiology Matthew Jerome 2 YElizabeth.B.B.SLilian Moise [address] [place] [phone] Appointment Gastroenterology and [place], 2 Hepatology Yue Burciaga M.D. [address] [place] [phone] Office Visit Gastroenterology and Matthew Jerome 2 Hepatology Joshua RodriguezB.B.Lilian [place] [address] [place] [phone] Appointment Radiology Matthew Jerome 2 Y M.B.B.SLilian Moise [address] [place] [phone] Scheduled Procedures Name Priority Associated Diagnoses Date/Time ESOPHAGOGASTRODUODENOSCOPY Cirrhosis Alc oholic (HCC) 02/10/2022 8:45 AM CDT Hypertension Portal (HCC) documented as of this encounter Results Creatinine with Estimated GFR (09/19/2021 1:32 PM CDT) P athologist Signature Creatinine 0.68 0.59 - 09/19/2021 OWAT 1.04 mg/dL 4:09 PM CDT eGFR-Black/Afric >90 >=60 09/19/2021 OWAT an Uruguayan mL/min/BSA 4:09 PM CDT Comment: ----ADDITIONAL INFORMATION---- [...] Organization Address City/State/ZIP Code Phon e Number [facility] [address] [place] [address] [place] [address] System in [place] [address] documented in this encounter Visit Diagnoses Diagnosis Abnormal Liver Function Test - Primary Cirrhosis Alcoholic (HCC) Hypertension Portal (HCC) documented in this encounter Additional Health Concerns Infection Onset Date Last Indicated Resolved Time COVID19 08/29/2021 08/29/2021 09/18/2021 8:31 AM CDT documented as of this encounter Care Teams J2Ee Developer Relationship Specialty Start Date End Date Elsewhere, Pcp PCP - General Family Medicine 03/10/20 11/30/21 [facility] [place] [facility] 08/25/21 Ervin Schroeder MD Referring Provider Family Medicine 03/24/211979 [address] [place] [address] documented as of this encounter
--- OUTSIDE RECORDS SUMMARY | 2022-01-31 04:30 | XMS_ITS | Encounter Summary ---
:1990 Author Organization [facility] Address [address] [place] [address] Care Team Providers Name Role Phone Elsewhere, Pcp Primary Care Provider Unavailable Encounter Details Date Type Department Care Team Description 09/01/2021 Clinical Communication Department of Matthew Jerome Gastroenterology in [place] Perez. [address] [place] [phone] [phone] Social History Tobacco Use Types Packs/Day Years [...] do you attend methodist or Never 2021 sikh services? 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 [place] is wondering if there is a day in which you would see this patient after they have all the testing. documented in this encounter Plan of Treatment Upcoming Encounters Date Type Specialty Care Team Description Office Visit Community Internal Neda, 2 Medicine Vernell Perez [address] [place] [address] Appointment Radiology Matthew Jerome 2 Y, M.Lilian Hudson [address] [place] [address] [facility] and [facility] 2 Encounter Hepatology Tyrell Rodriguez M.D. [address] [place] [phone] [address] [facility] [place] ESOPHAG OGASTRODUODENOSCOPY 2 Hepatology Tyrell Rodriguez M.D. [address] [place] [phone] Telemedicine Transplant 2 Lab Laboratory Medicine Karin, 2 Adeline Gannon M.D., Ph.D. [address] [place] [phone] Lab Laboratory Medicine Karni, 2 Adeline Gannon M.D., Ph.D. [address] [place] [phone] Office Visit Transplant Karin, 2 Adeline Gannon M.D., Ph.D. [address] [place] [phone] Appointment Radiology [facility] 2 Joshua RodriguezBSumaBGraeme, Lilian [address] [place] [phone] Appointment Gastroenterology and [place], 2 Hepatology Yue Burciaga M.D. [address] [place] [address] Office Visit Gastroenterology and Matthew Jerome 2 Hepatology YTyrell, Lilian [address] [place] [phone] Appointment Radiology LuisMatthew abdul 2 Tyrell Rodriguez M.D. [address] [place] [phone] Scheduled Procedures Name Priority Associated Diagnoses Date/Time ESOPHAGOGASTRODUODENOSCOPY Cirrhosis Alc oholic (HCC) 02/10/2022 8:45 AM CDT Hypertension Portal (HCC) documented as of this encounter Visit Diagnoses Not on filedocumented in this encounter Additional Health Concerns Infection Onset Date Last Indicated Resolved Time COVID19 08/29/2021 08/29/2021 09/18/2021 8:31 AM CDT documented as of this encounter Care Teams Car Racer Relationship Specialty Start Date End Date Elsewhere, Pcp PCP - General Family Medicine 03/10/20 11/30/21 [facility] [place] lab 08/25/21 Ervin Schroeder MD Referring Provider Family Medicine 03/24/21 [facility] [address] [place] [address] documented as of this encounter
--- OUTSIDE RECORDS SUMMARY | 2022-01-31 04:30 | XMS_ITS | Encounter Summary ---
:1990 Author Organization [facility] Address [address] [place] [address] Care Team Providers Name Role Phone Elsewhere, Pcp Primary Care Provider Unavailable Reason for Visit Reason Comments Appointment PMR 09/23 Phone Contact PMR PT Encounter Details Date Type Department Care Team Description 09/14/2021 Clinical Ramirez Barajas, Camron coreas (PMR Communication [facility], 09/23); Phone Transplantation and Lilian, Ph.D. Contact (PMR PT) Clinical [facility] [address] in [facility] [address] [facility] [phone] Social History Tobacco Use Types Packs/Day Years [...] do you attend voodoo or Never 2021 pentecostalism services? Do you belong to any clubs or No 07/17/2021 organizations such as voodoo groups, unions, frathreadsy or athletic groups, or school groups? 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 None of the [...] Community Internal Neda, 2 Medicine Vernell Perez [address] [place] [phone] Appointment Radiology Matthew Jerome 2 Y, JoshuaBSumaBGraeme, Lilian [address] [place] [phone] Hospital Gastroenterology and Matthew Jerome 2 Encounter Hepatology Joshua RodriguezBSumaBGraeme, Lilian [address] [place] [phone] Surgery Gastroenterology and Matthew Jerome ESOPHAG OGASTRODUODENOSCOPY 2 Hepatology Y M.B.B.SSuma, Lilian [address] [place] [phone] Telemedicine Transplant 2 Lab Laboratory Medicine Olinda Frazier M.D., Ph.D. [address] [place] [phone] Lab Laboratory Medicine Olinda Frazier M.D., Ph.D. [address] [place] [phone] Office Visit Transplant Olinda Frazier M.D., Ph.D. [address] [place] [phone] Appointment Radiology Matthew Jerome 2 Y, M.B.B.SSumaLilian [address] [place] [address] Appointment Gastroenterology and Olinda Silver Hepatology Yue Burciaga M.D. [address] [place] [address] Office Visit Gastroenterology and Matthew Jerome 2 Hepatology Tyrell Rodriguez M.D. [address] [place] [phone] Appointment Radiology Matthew Jerome 2, M.B.B.S., M.D. [facility]5 [place] [phone] Scheduled Procedures Name Priority Associated Diagnoses Date/Time ESOPHAGOGASTRODUODENOSCOPY Cirrhosis Alc oholic (HCC) 02/10/2022 8:45 AM CDT Hypertension Portal (HCC) documented as of this encounter Visit Diagnoses Not on filedocumented in this encounter Additional Health Concerns Infection Onset Date Last Indicated Resolved Time COVID19 08/29/2021 08/29/2021 09/18/2021 8:31 AM CDT documented as of this encounter Care Teams Electrical Research Engineer Relationship Specialty Start Date End Date Elsewhere, Pcp PCP - General Family Medicine 03/10/20 11/30/21 [facility] [place] lab 08/25/21 Ervin Schroeder MD Referring Provider Family Medicine 03/24/[address] [place] [address] documented as of this encounter
--- OUTSIDE RECORDS SUMMARY | 2022-01-31 04:30 | XMS_ITS | Encounter Summary ---
:1990 Author Organization [facility] Address [address] [place] [address] Care Team Providers Name Role Phone Elsewhere, Pcp Primary Care Provider Unavailable Encounter Details Date Type Department Care Team Description 09/05/2021 Clinical Communication Division of [facility] in Warren Schaefer M.D.[place], [place] M.P.H. 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 Hernández ordered a variety of tests for patient ot complete closer to home. [facility] reachedout to patient to offer tests closer to home and patient stated she would rather drive to [place] for all testing. Due to patient preference, the following orders will need region changes from [facility] to [facility] before we are able to schedule for patient in [place]. 1. BMD bone Density Spine and Hips [...] Care Team Description Office Visit [facility] 2 Medicine Vernell Perez 300 [facility] [place] [address] Appointment Radiology Matthew Jerome 2 Y, M.B.BSumaSSuma, Lilian [address] [place] [phone] Hospital Gastroenterology and [facility] 2 Encounter Hepatology Y M.B.B.SSuma, Lilian [address] [place] [phone] Surgery Gastroenterology and [facility] ESOPHAG OGASTRODUODENOSCOPY 2 Hepatology Y, M.B.B.SSuam, Lilian [address] [place] [phone] Telemedicine Transplant 2 Lab Laboratory Medicine Karin, 2 Adeline Gannon M.D., Ph.D. [address] [place] [phone] Lab Laboratory Medicine Karin, 2 Adeline Gannon M.D., Ph.D. [address] [place] [phone] Office Visit Transplant Karin, 2 Adeline Gannon M.D., Ph.D. [address] [place] [phone] Appointment Radiology Matthew Jerome 2 Y, M.B.B.SSuma, Lilian [address] [place] [phone] Appointment Gastroenterology and [place]ne, 2 Hepatology Yue Burciaga M.D. [address] [place] [address] Office Visit Gastroenterology and Matthew Jerome 2 Hepatology Joshua RodriguezB.BGraeme, Lilian [address] [place] [phone] Appointment Radiology LuisMatthew abdul 2 YJoshuaB.B.Kath, Lilian [address] [place] [address] Scheduled Procedures Name Priority Associated Diagnoses Date/Time ESOPHAGOGASTRODUODENOSCOPY Cirrhosis Alc oholic (HCC) 02/10/2022 8:45 AM CDT Hypertension Portal (HCC) documented as of this encounter Visit Diagnoses Not on filedocumented in this encounter Additional Health Concerns Infection Onset Date Last Indicated Resolved Time COVID19 08/29/2021 08/29/2021 09/18/2021 8:31 AM CDT documented as of this encounter Care Teams Airport Ramp Agent Relationship Specialty Start Date End Date Elsewhere, Pcp PCP - General Family Medicine 03/10/20 11/30/21 [facility] [place] lab 08/25/21 Ervin Schroeder MD Referring Provider Family Medicine 03/24/[address] [place] [phone] documented as of this encounter
--- OUTSIDE RECORDS SUMMARY | 2022-01-31 04:30 | XMS_ITS | Encounter Summary ---
:1990 Author Organization [facility] Address [address] [place] [address] Care Team Providers Name Role Phone Elsewhere, Pcp Primary Care Provider Unavailable Reason for Visit Reason Comments Hepatobiliary Encounter Details Date Type Department Care Team Description 09/19/2021 Clinical Communication Division of Edgar, Hepat obiliary Gastroenterology in [place], [place] Lilian, M.P.H. [address] [facility] [address] [place] [address] [place], [place] [phone] Social History Tobacco Use Types Packs/Day Years [...] or relatives? How often do you attend cheondoism or Never 2021 gnosticist services? 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 - 09/22/2021 9:55 AM CDT SUBJECTIVE CHIEF COMPLAINT / REASON FOR CALL Hepatobiliary, CT abd, anxiety ASSESSMENT HB nurse phoned patient to discuss preference for CT abd at [place]. She was prescribed Ativan 1 mg to [...] away today; HB [facility] PLAN Anxiety related to claustrophobia related to CT abd scheduled for 14:45 today at [place]. Disposition/Recommendation: notified provider and awaiting recommendations. Information/Education: patient/caller able to teach back. Caller agreeable to plan of care: yes. The following references were used: nursing clinical judgement. 10:30 Addendum: Patient informed that [place] [facility] (per Dr. Ramirez Driscoll) says she has not been seen here in [place] yet so does not feel comfortable prescribing a controlled substance for a procedure that usually is not performed with much sedation. She should contact [facility] or her local PCPif she seeks [...] she had called and discussed this with [facility] GI Department. Helicopter Mechanic also explained that changed of sedation type may result in a change of date/time of CT scan and she likely would not be able to still have CT done today in [place] with a change of sedation type from oral Ativan. Patient expressed she would maybe be willing to try the CT scan as ordered. She will call and follow up with [facility] GI. documented in this encounter Plan of Treatment Upcoming Encounters Date Type Specialty Care Team Description Office Visit [facility] Internal [facility], 2 Medicine Vernell Perez [address] [place] [phone] Appointment Radiology Matthew Jerome 2 Tyrell Rodriguez, MJules [address] [place] [address] Hospital Gastroenterology and Matthew Jerome 2 Encounter Hepatology Max Rodriguez., M.D. [address] [place] [address] Surgery Gastroenterology and Matthew Jerome ESOPHAG OGASTRODUODENOSCOPY 2 Hepatology Tyrell Rodriguez M.D. [facility]5 [place] [address] Telemedicine Transplant 2 Lab Laboratory Medicine Karin, 2 Adeline Gannon M.D., Ph.D. [address] [place] [phone] Lab Laboratory Medicine Karin, 2 Adeline Gannon M.D., Ph.D. [address] [place] [phone] Office Visit Transplant Karin, 2 Adeline Gannon M.D., Ph.D. [address] [place] [phone] Appointment Radiology Matthew Jerome 2 Vik RodriguezBLilian Bedolla [address] [place] [address] Appointment Gastroenterology and Adrianne, 2 Hepatology Yue Burciaga M.D. [address] [place] [phone] Office Visit Gastroenterology and Matthew Jermoe 2 Hepatology Vik RodriguezBLilian Bedolla [facility]5 [place] [address] Appointment Radiology Matthew Jerome 2, M.B.B.S., Lilian [address] [place] [address] Scheduled Procedures Name Priority Associated Diagnoses Date/Time ESOPHAGOGASTRODUODENOSCOPY Cirrhosis Alc oholic (HCC) 02/10/2022 8:45 AM CDT Hypertension Portal (HCC) documented as of this encounter Visit Diagnoses Diagnosis Anxiety - Primary Personal History Of Failed Moderate Jo tion Cirrhosis Alcoholic (HCC) Hypertension Portal (HCC) documented in this encounter Care Teams Semiconductor Wafers Etch Operator Relationship Specialty Start Date End Date Elsewhere, Pcp PCP - General Family Medicine 03/10/20 11/30/21 [facility] [place] lab 08/25/21 Ervin Schroeder MD Referring Provider Family Medicine 03/24/[address] [place] [address] documented as of this encounter
--- OUTSIDE RECORDS SUMMARY | 2022-01-31 04:30 | XMS_ITS | Encounter Summary ---
:1990 Author Organization [facility] Address [address] [place] [address] Care Team Providers Name Role Phone Elsewhere, Pcp Primary Care Provider Unavailable Reason for Visit Reason Comments Medication Question Encounter Details Date Type Department Care Team Description 09/18/2021 Clinical Department of Dannielle, Medication Communication Gastroenterology in [place], [place] L.P.N. 1025 [facility] [phone] [place] [phone] 2 (Work) [phone] Social History Tobacco Use Types Packs/Day Years [...] do you attend religious or Never 2021 mormon services? 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 documented as of this encounter Miscellaneous Notes [...] Community Internal Neda, Olinda Medicine Vernell Perez [address] [place] [address] [place] [address] Appointment Radiology Matthew Jerome 2 Y, M.B.B.S., M.DSuma [address] [place] [phone] Hospital Gastroenterology and [facility], Matthew 2 Encounter Hepatology YElizabeth.B.B.SSuma, MJules [address] [place] [phone] Surgery Gastroenterology and [facility], [place] ESOPHAG OGASTRODUODENOSCOPY 2 Hepatology Y M.B.B.S., M.DSuma [address] [place] [phone] Telemedicine Transplant 2 Lab Laboratory Medicine Karin, 2 Adeline Gannon M.D., Ph.D. [address] [place] [phone] Lab Laboratory Medicine Olinda Frazier M.D., Ph.D. [address] [place] [phone] Office Visit Transplant Olinda Frazier M.D., Ph.D. [address] [place] [phone] Appointment Radiology Matthew Jerome 2 YJoshuaB.B.SSuma, Lilian [address] [place] [phone] Appointment Gastroenterology and [place]ne 2 Hepatology Yue Burciaga M.D. [address] [place] [address] Office Visit Gastroenterology and Matthew Jerome 2 Hepatology Joshua RodriguezB.B.SLilian Moise [address] [place] [phone] Appointment Radiology Matthew Jerome 2 YJoshuaB.B.Lilian [place] [address] [place] [address] Scheduled Procedures Name Priority Associated Diagnoses Date/Time ESOPHAGOGASTRODUODENOSCOPY Cirrhosis Alc oholic (HCC) 02/10/2022 8:45 AM CDT Hypertension Portal (HCC) documented as of this encounter Visit Diagnoses Diagnosis Anxiety - Primary Cirrhosis Alcoholic (HCC) Hypertension Portal (HCC) documented in this encounter Additional Health Concerns Infection Onset Date Last Indicated Resolved Time COVID19 08/29/2021 08/29/2021 09/18/2021 8:31 AM CDT documented as of this encounter Care Teams Elementary Summer School Teacher Relationship Specialty Start Date End Date Elsewhere, Pcp PCP - General Family Medicine 03/10/20 11/30/21 [facility] [place] lab 08/25/21 Ervin Schroeder MD Referring Provider Family Medicine 03/24/[address] [place] [address] documented as of this encounter
--- OUTSIDE RECORDS SUMMARY | 2022-01-31 04:30 | XMS_ITS | Encounter Summary ---
:1990 Author Organization [facility] Address [address] [place] [address] Care Team Providers Name Role Phone Elsewhere, Pcp Primary Care Provider Unavailable Encounter Details Date Type Department Care Team Description 08/29/2021 Lab Department of [facility] [place], YARITZA M.S.N ., R.N. Preprocedural Laboratory [address] Examination (COVID-19) [address] [place] [address] [place] [phone] (Wo rk) Social History Tobacco Use Types [...] 07/17/2021 organizations such as jainism groups, unions, fraSiminars or athletic groups, or school groups? 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 For questions, contact the [place] Covid Care Team (CCT): Pager: [phone] In basket: P [facility] COVID-19 POSITIVE Covid Care e-consult NOTE: At the time of testing, patients are instructed to obtain the result by calling the [facility] result line or by checking their online services account. documented in this encounter Plan of Treatment Upcoming Encounters Date Type Specialty Care Team Description Office Visit Community Internal Neda, 2 Medicine Vernell Perez [address] [place] [phone] Appointment [facility] 2 YElizabeth.B.B.Kath, Lilian [address] [place] [phone] Hospital Gastroenterology and [facility] 2 Encounter Hepatology Joshua RodriguezB.BLilian Bedolla [address] [place] [phone] Surgery Gastroenterology and [facility] ESOPHAG OGASTRODUODENOSCOPY 2 Hepatology YJoshuaB.B.SSuma, Lilian [address] [place] [phone] Telemedicine Transplant 2 Lab Laboratory Medicine Olinda Frazier M.D., Ph.D. [address] [place] [phone] Lab Laboratory Medicine Olinda Frazier M.D., Ph.D. [address] [place] [phone] Office Visit Transplant Olinda Frazier M.D., Ph.D. [address] [place] [phone] Appointment Radiology Matthew Jerome 2 Vik RodriguezBLilian Bedolla [address] [place] [phone] Appointment Gastroenterology and [place], 2 Hepatology Yue Burciaga M.D. [address] [place] [address] Office Visit Gastroenterology and Matthew Jerome 2 Hepatology Vik RodriguezBLilian Bedolla [address] [place] [phone] Appointment Radiology Matthew Jerome 2 Joshua RodriguezBSumaBLilian Bedolla [address] [place] [phone] Scheduled Procedures Name Priority Associated Diagnoses Date/Time [...] RNA, V Asymptomatic (08/29/2021 4:14 PM CDT) [facility] Method Time Signature SARS-CoV-2 Swab, 08/29/2021 MKTO Specimen Nasopharynx 11:28 PM Source CDT SARS CoV-2 Detected (A) Undetected 08/29/2021 MKTO RNA, TMA 11:28 PM CDT Comment: SARS-CoV-2 RNA present. ----ADDITIONAL INFORMATION---- This molecular amplification test was pe rformed using the Aptima SARS-CoV-2 assay ([employer] on the [employer] Sys tem under emergency use authorization (EUA) by the U.S. Food and Drug Administ sam. Fact sheets for this EUA assay can be fo und at the following links: For Healthcare Providers: https://www.fd a.gov/media/772768/download For Patients: https://www.fda.gov/media/ 221573/download Specimen Anatomical Collection Method Collection Time Receive d Time (Source) Location / / Volume Laterality Varies 08/29/2021 4:14 PM 5:17 (Nasopharynx) CDT PM CDT Joshua Newsome APRNSSumaN., R.N. LAB MICROBIOLOGY - G ENERAL ORDERABLES Performing Organization Address City/State/ZIP Code Phon e Number [facility]- [address] [place] [id number] [place] [address] [place] [address] System in [place] [address] [place] [address] documented in this encounter Visit Diagnoses Diagnosis Encounter For Preprocedural Laboratory E xamination (COVID-19) Cirrhosis Alcoholic (HCC) Hypertension Portal (HCC) documented in this encounter Additional Health Concerns Infection Onset Date Last Indicated Resolved Time COVID19 Pending 08/29/2021 08/29/2021 08/29/2021 11:29 PM CDT documented as of this encounter Care Teams Car Icer Relationship Specialty Start Date End Date Elsewhere, Pcp PCP - General Family Medicine 03/10/20 11/30/21 [facility] [place] lab 08/25/21 Ervin Schroeder MD Referring Provider Family Medicine 03/24/21[address] [facility] [place] [address] documented as of this encounter
--- OUTSIDE RECORDS SUMMARY | 2022-01-31 04:30 | XMS_ITS | Encounter Summary ---
:1990 Author Organization [facility] Address [address] [place] [address] Care Team Providers Name Role Phone Elsewhere, Pcp Primary Care Provider Unavailable Encounter Details Date Type Department Care Team Description 09/03/2021 Virtual Visit Division of Marco Zimmerman [facility] Liver Internal Medicine, M.Slick. Function Test [facility] in [address] [place] [address] [place] [phone] [place], [place] [phone] (Work) [phone] Social History Tobacco Use Types Packs/Day Years [...] do you attend mosque or Never 2021 uatsdin services? 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 - 09/03/2021 5:24 PM CDT Note in error. documented in this encounter Plan of Treatment Upcoming Encounters Date Type Specialty Care Team Description Office Visit Community Internal Carlos, 2 Medicine Vernell Perez 300 [place] [address] Appointment Radiology Matthew Jerome 2 YTyrell M.D. 1025 [place] [address] [facility] Gastroenterology and Mousa, Matthew 2 Encounter Hepatology Tyrell Rodriguez M.D. [address] [place] [phone] Surgery Gastroenterology and Mousa, Matthew ESOPHAG OGASTRODUODENOSCOPY 2 Hepatology Tyrell Rodriguez M.D. [address] [place] [phone] Telemedicine Transplant 2 Lab Laboratory Medicine Karin, 2 Adeline Gannon M.D., Ph.D. [address] [place] [phone] Lab Laboratory Medicine Karin, 2 Adeline Gannon M.D., Ph.D. [address] [place] [phone] Office Visit Transplant Karin, 2 Adeline Gannon M.D., Ph.D. [address] [place] [phone] Appointment [facility] Matthew 2 Tyrell Rodriguez M.D. [address] [place] [phone] Appointment Gastroenterology and Adrianne, 2 Hepatology Yue Burciaga M.D. [address] [place] [phone] Office Visit Gastroenterology and [facility], Matthew 2 Hepatology Tyrell Rodriguez M.D. [address] [place] [phone] Appointment Radiology Matthew Jerome 2 YTyrell, Lilian [address] [place] [phone] Scheduled Procedures Name Priority Associated Diagnoses [...] documented as of this encounter Care Teams Heel Seat Filler Relationship Specialty Start Date End Date Elsewhere, Pcp PCP - General Family Medicine 03/10/20 11/30/21 [facility] [place] [facility] 08/25/21 Ervin Schroeder MD Referring Provider Family Medicine 03/24/[address] [place] [address] documented as of this encounter
--- OUTSIDE RECORDS SUMMARY | 2022-01-31 04:30 | XMS_ITS | Encounter Summary ---
:1990 Author Organization [facility] Address [address] [place] [address] Care Team Providers Name Role Phone Elsewhere, Pcp Primary Care Provider Unavailable Reason for Visit Reason Comments Appointment PMR PT Encounter Details Date Type Department Care Team Description 09/15/2021 Clinical Department of [facility] Matthew Appointment (P MR Communication Gastroenterology in Y, M.B.B.S., PT) [place], [place] M.D 1025 [facility] 1025 [place] [address] [place] [address] Social History Tobacco Use Types Packs/Day Years [...] do you attend catholic or Never 2021 congregation services? Do you belong to any clubs or No 07/17/2021 organizations such as catholic groups, unions, [place] or athletic groups, or school groups? 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 Thank you in advance Telephone Encounter - Andreas Lopez - 09/15/2021 11:[address] Queenie Henson could you please place an order for [place] for PMR PT appt. Pt would like to see in there is anything available while she is here for LTE. Thank you in advance documented in this encounter Plan of Treatment Upcoming Encounters Date Type Specialty Care Team Description Office Visit Community Internal Neda, 2 Medicine Vernell Perez 300 [facility] [place] [phone] Appointment Radiology Matthew Jerome 2 Y, MSumaBSumaBGraeme, Lilian [address] [place] [phone] Hospital Gastroenterology and [facility] 2 Encounter Hepatology Y MSumaBSumaBGraeme, Lilian [address] [place] [phone] Surgery Gastroenterology and [facility] ESOPHAG OGASTRODUODENOSCOPY 2 Hepatology Y M.B.BSumaSSuma, Lilian [address] [place] [phone] Telemedicine Transplant 2 Lab Laboratory Medicine Karin, 2 Adeline Gannon M.D., Ph.D. [address] [place] [phone] Lab Laboratory Medicine Karin, 2 Adeline Gannon M.D., Ph.D. [address] [place] [phone] Office Visit Transplant Karin, 2 Adeline Gannon M.D., Ph.D. [address] [place] [phone] Appointment Radiology Matthew Jerome 2 Y, M.B.B.SSuma, MJules [address] [place] [phone] Appointment Gastroenterology and Adrianne, 2 Hepatology Yue Burciaga M.D. [address] [place] [address] Office Visit Gastroenterology and Matthew Jerome 2 Hepatology Joshua RodriguezBSumaBLilian Bedolla 1025 [place] [phone] Appointment Radiology LuisMatthew abdul 2 YJoshuaB.BLilian Bedolla 1025 [place] [address] Scheduled Procedures Name Priority Associated Diagnoses Date/Time ESOPHAGOGASTRODUODENOSCOPY Cirrhosis Alc oholic (HCC) 02/10/2022 8:45 AM CDT Hypertension Portal (HCC) documented as of this encounter Visit Diagnoses Not on filedocumented in this encounter Additional Health Concerns Infection Onset Date Last Indicated Resolved Time COVID19 08/29/2021 08/29/2021 09/18/2021 8:31 AM CDT documented as of this encounter Care Teams Supervisor Instrument Repair Relationship Specialty Start Date End Date Elsewhere, Pcp PCP - General Family Medicine 03/10/20 11/30/21 [facility] [place] [facility] 08/25/21 Ervin Schroeder MD Referring Provider Family Medicine 03/24/[address] [place] [phone] documented as of this encounter
--- OUTSIDE RECORDS SUMMARY | 2022-01-31 04:30 | XMS_ITS | Encounter Summary ---
:1990 Author Organization [facility] Address [address] [place] [address] Care Team Providers Name Role Phone Elsewhere, Pcp Primary Care Provider Unavailable Reason for Visit Reason Comments Medical Information Encounter Details Date Type Department Care Team Description 08/30/2021 Nurse Triage Department of Joshua Resendiz, Medical Information Medicine, [facility], in [place], [place] [address] [phone] Social History Tobacco Use Types Packs/Day Years [...] do you attend mormon or Never 2021 bahai services? 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 https://www.cdc.gov/coronavirus/2019-ncov/vaccines/about-vaccines/index.html?s_c ui=18272:covid%20vaccine:sonja.ga:p:RG:GM:gen:PTN: Calling to request: information The recommended disposition is Manage symptoms at home. documented in this encounter Plan of Treatment Upcoming Encounters Date Type Specialty Care Team Description Office Visit Community Internal [facility], 2 Medicine Vernell Perez 300 [facility] [place] [address] Appointment Radiology Matthew Jerome 2 Y, M.B.B.SSuma, Lilian [address] [place] [phone] Hospital Gastroenterology and [facility] 2 Encounter Hepatology Y M.B.BGraeme, Lilian [address] [place] [phone] Surgery Gastroenterology and [facility] ESOPHAG OGASTRODUODENOSCOPY 2 Hepatology Y M.B.B.SSuma, Lilian [address] [place] [phone] Telemedicine Transplant 2 Lab Laboratory Medicine Karin, 2 Adeline Gannon M.D., Ph.D. [address] [place] [address] [phone] Lab Laboratory Medicine Karin, 2 Adeline Gannon M.D., Ph.D. [address] [place] [phone] Office Visit Transplant Karin, 2 Adeline Gannon M.D., Ph.D. [address] [place] [phone] Appointment Radiology Matthew Jerome 2 Y, M.B.B.SSuma, Lilian [address] [place] [phone] Appointment Gastroenterology and Adrianne, 2 Hepatology Yue Burciaga M.D. [address] [place] [phone] Office Visit Gastroenterology and Matthew Jerome 2 Hepatology Joshua RodriguezBSumaBLilian Bedolla 1025 [place] [address] Appointment Radiology LuisMatthew abdul 2 YJoshuaB.BLilian Bedolla 1025 [place] [address] Scheduled Procedures Name Priority Associated Diagnoses Date/Time ESOPHAGOGASTRODUODENOSCOPY Cirrhosis Alc oholic (HCC) 02/10/2022 8:45 AM CDT Hypertension Portal (HCC) documented as of this encounter Visit Diagnoses Not on filedocumented in this encounter Additional Health Concerns Infection Onset Date Last Indicated Resolved Time COVID19 08/29/2021 08/29/2021 09/18/2021 8:31 AM CDT documented as of this encounter Care Teams Distribution Center Supervisor Relationship Specialty Start Date End Date Elsewhere, Pcp PCP - General Family Medicine 03/10/20 11/30/21 [facility] [place] [facility] 08/25/21 Ervin Schroeder MD Referring Provider Family Medicine 03/24/[address] [place] [address] documented as of this encounter
--- OUTSIDE RECORDS SUMMARY | 2022-01-31 04:30 | XMS_ITS | Encounter Summary ---
:1990 Author Organization [facility] Address [address] [place] [address] Care Team Providers Name Role Phone Elsewhere, Pcp Primary Care Provider Unavailable Reason for Visit Reason Comments Phone Contact Records 08/03 Encounter Details Date Type Department Care Team Description 08/29/2021 Clinical Department of Matthew Jerome Phone Contact Communication Gastroenterology in Y, MSumaB.B.S., (Record s 08/03) [place], [place] M.Jeri 1025 [facility] 1025 [place] [address] [place] [phone] Social History Tobacco Use Types Packs/Day Years [...] do you attend hindu or Never 2021 alevism services? Do you belong to any clubs or No 07/17/2021 organizations such as hindu groups, unions, [email or web address] or athletic groups, or school groups? How [...] or the highest technical, or vocational p [facility] degree you have received? 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 Miscellaneous Notes [...] Internal [facility], 2 Medicine Vernell Perez 300 [place] [phone] Appointment Radiology Matthew Jerome 2 Y, M.B.BGraeme, Lilian [address] [place] [phone] Hospital Gastroenterology and [facility], Matthew 2 Encounter Hepatology Y MSumaBJhoan, Lilian [address] [place] [phone] Surgery Gastroenterology and [facility], Matthew ESOPHAG OGASTRODUODENOSCOPY 2 Hepatology Y M.B.BGraeme, Lilian [address] [place] [phone] Telemedicine Transplant 2 Lab Laboratory Medicine Karin, 2 Adeline Gannon M.D., Ph.D. [address] [place] [phone] Lab Laboratory Medicine Karin, 2 Adeline Gannon M.D., Ph.D. [address] [place] [phone] Office Visit Transplant Karin, Olinda Gannon M.D., Ph.D. [address] [place] [phone] Appointment Radiology Matthew Jerome 2 Y, M.B.B.SSuma, Lilian [address] [place] [phone] Appointment Gastroenterology and Adrianne, 2 Hepatology Yue Burciaga M.D. [address] [place] [address] Office Visit Gastroenterology and Matthew Jerome 2 Hepatology Joshua RodriguezBSumaBLilian Bedolla 1025 [place] [phone] Appointment Radiology LuisMatthew abdul 2 Joshua RodriguezBSumaBLilian Bedolla [address] [place] [phone] Scheduled Procedures Name Priority Associated Diagnoses Date/Time ESOPHAGOGASTRODUODENOSCOPY Cirrhosis Alc oholic (HCC) 02/10/2022 8:45 AM CDT Hypertension Portal (HCC) documented as of this encounter Visit Diagnoses Not on filedocumented in this encounter Additional Health Concerns Infection Onset Date Last Indicated Resolved Time COVID19 Pending 08/29/2021 08/29/2021 08/29/2021 11:29 PM CDT documented as of this encounter Care Teams Rn First Assist Relationship Specialty Start Date End Date Elsewhere, Pcp PCP - General Family Medicine 03/10/20 11/30/21 [facility] [place] [facility] 08/25/21 Ervin Schroeder MD Referring Provider Family Medicine 03/24/[address] [place] [phone] documented as of this encounter
[2022-01-31 04:31] LABS: Slide Review Reflex No
--- OUTSIDE RECORDS SUMMARY | 2022-01-31 04:31 | XMS_ITS | Encounter Summary ---
:1990 Author Organization [facility] Address [address] [place] [address] Care Team Providers Name Role Phone Elsewhere, Pcp Primary Care Provider Unavailable Reason for Referral Outpatient (Routine) - Closed Specialty Diagnoses / Referred By Contact Referred To Procedures Contact Gastroenterology and Matthew Jerome, [facility] Region Hepatology Lilian Santillan [address] [place] [phone] Referral ID Status Reason Start Date Expiration Date Visits Requ ested Visits Authorized [id number] Closed 08/05/2021 08/05/2022 1 1 Occupational Therapy (Routine) - Closed Specialty Diagnoses / Procedures Referred By Contact Refer red To Contact Diagnoses Edema Leg Matthew Jerome M.B.B.S., [facility] Procedures OT Evaluate and treat Lilian [address] [place] [phone] Referral ID Status Reason Start Date Expiration Date Visits Requ ested Visits Authorized [id number] Closed 08/05/2021 08/05/2022 1 1 Reason for Visit Outpatient (Routine) - Closed Specialty Diagnoses / Referred By Contact Referred To Procedures Contact Gastroenterology and Kerry Naranjo [facility] Hepatology REFRACTORY MIXERRachele., R.N. 1025 [place] [address] Referral ID Status Reason Start Date Expiration Date Visits Requ ested Visits Authorized [id number] Closed 07/21/2021 07/21/2022 1 1 Encounter Details Date Type Department Care Team Description 08/05/2021 Office Visit Department of Matthew Jerome, Douglas Leg (P rimary Dx); Gastroenterology in Joshua Santillan Cirrhosis Alcoholic (HCC) [place], [place] [address] [phone] Social History Tobacco Use Types [...] do you attend buddhist or Never 2021 alevism services? 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 Worked at [employer]. For 13 years she was a vegetarian, [...] on her own after a trip to [place] last July 2020, but could not remember why she decided to. Prior to that she had 4 episodes of recurrent pancreatitis. She states that the 1st illness she had was after a trip to [place] when she had abdominal pain and she [...] the liver Transplant selection committee meeting in [facility]. She agreed to proceed. I explained [...] contact the liver transplant coordinators to submit [id number], pending approval. Once approved, the transplant coordinators [...] her PCP #15 Newly diagnosed PFO with [id number] atrial shunt: Echo done March 2020 # [...] OLAYINKA Trotter Gastroenterology, Hepatology and Transplant hepatology [facility] documented in this encounter Plan of Treatment Upcoming Encounters Date Type Specialty Care Team Description Office Visit Community Internal [facility], 2 Medicine Vernell Perez 300 [place] [address] Appointment Radiology Matthew Jerome 2, M.B.B.S., M.D. [address] [place] [phone] Hospital Gastroenterology and Matthew Jerome 2 Encounter Hepatology Tyrell Rodriguez M.D. 1025 [place] [phone] Surgery Gastroenterology and Matthew Jerome ESOPHAG OGASTRODUODENOSCOPY 2 Hepatology Joshua RodriguezB.B.SLilian Moise 1025 [place] [address] Telemedicine Transplant 2 Lab Laboratory Medicine Karin, 2 Adeline Gannon M.D., Ph.D. [address] [place] [phone] Lab Laboratory Medicine Karin, 2 Adeline Gannon M.D., Ph.D. [address] [place] [address] [phone] Office Visit Transplant aKrin, Olinda Gannon M.D., Ph.D. [address] [place] [address] [phone] Appointment Radiology Matthew Jerome 2 YElizabeth.B.B.SSuma, Lilian [address] [place] [phone] Appointment Gastroenterology demian Silver 2 Hepatology Yue Burciaga M.D. [address] [place] [phone] Office Visit Gastroenterology and Matthew Jerome 2 Hepatology Joshua RodriguezB.B.SLilian Moise [address] [place] [phone] Appointment Radiology Matthew Jerome 2 Y M.B.B.SLilian Moise [address] [place] [phone] Scheduled Procedures Name Priority Associated Diagnoses [...] CDT eGFR-Black/Afri >90 >=60 08/11/2021 OWAT can Kuwaiti mL/min/BSA 1:53 PM CDT Comment: ----ADDITIONAL INFORMATION---- [...] Organization Address City/State/ZIP Code Phon e Number [facility]- [address] [place] [address] [place] [address] System in [place] [address] documented in this encounter Visit Diagnoses Diagnosis Edema Leg - Primary Cirrhosis Alcoholic (HCC) Cirrhosis Alcoholic (HCC) Hypertension Portal (HCC) documented in this encounter Care Teams Can Washer Relationship Specialty Start Date End Date Elsewhere, Pcp PCP - General Family Medicine 03/10/20 11/30/21 Ervin Schroeder MD Referring Provider Family Medicine 03/24/211979 [address] [place] [address] documented as of this encounter
--- OUTSIDE RECORDS SUMMARY | 2022-01-31 04:31 | XMS_ITS | Encounter Summary ---
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 [place] [address] Telemedicine Transplant 2 Lab Laboratory Medicine Karin, 2 Adeline Gannon M.D., Ph.D. [address] [place] [phone] Lab Laboratory Medicine Karin, 2 Adeline Gannon M.D., Ph.D. [address] [place] [phone] Office Visit Transplant Karin, 2 Adeline Gannon M.D., Ph.D. [address] [place] [phone] Appointment Radiology Matthew Jerome 2 YElizabeth.B.B.SLilian Moise [address] [place] [phone] Appointment Gastroenterology and Adrianne, 2 Hepatology Yue Burciaga M.D. [address] [place] [phone] Office Visit Gastroenterology and Matthew Jerome 2 Hepatology Elizabeth Rodriguez.B.B.SLilian Moise [address] [place] [phone] Appointment Radiology Matthew Jerome 2 Y M.B.B.SLilian Moise [address] [place] [phone] Scheduled Procedures Name Priority Associated Diagnoses Date/Time ESOPHAGOGASTRODUODENOSCOPY Cirrhosis Alc oholic (HCC) 02/10/2022 8:45 AM CDT Hypertension Portal (HCC) documented as of this encounter Visit Diagnoses Diagnosis Ascites Chronic - Primary Cirrhosis Alcoholic (HCC) Hypertension Portal (HCC) documented in this encounter Care Teams Welt Edge Rounder Relationship Specialty Start Date End Date Elsewhere, Pcp PCP - General Family Medicine 03/10/20 11/30/21 Ervin Schroeder MD Referring Provider Family Medicine 03/24/[address] [place] [address] documented as of this encounter
--- OUTSIDE RECORDS SUMMARY | 2022-01-31 04:31 | XMS_ITS | Encounter Summary ---
:1990 Author Organization [facility] Address [address] [place] [address] Care Team Providers Name Role Phone Elsewhere, Pcp Primary Care Provider Unavailable Reason for Visit Reason Comments Referral - Liver Txp Encounter Details Date Type Department Care Team Description 08/14/2021 Clinical Department of Matthew Jerome Referral - Angelica er Communication Gastroenterology in Y, M[facility]B.B.S., [facility] 10[address] [facility] 1025 [place] [address] [place] [phone] Social History Tobacco Use Types Packs/Day Years [...] do you attend congregation or Never 2021 gnosticist services? Do you belong to any clubs or No 07/17/2021 organizations such as congregation groups, unions, fraHotalot or athletic groups, or school groups? How [...] highest technical, or vocational p [facility] degree you have received? 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 Jerome wrapping 09/17. After speaking with patient, our hopes are that the remaining testing can be done in [place] the week prior (09/08). Mihaela, I have left the orders in our WQ and they say LTE [place] on them. Feel free to reroute the orders as neccessary! Let [place] [facility] know if you are unable to schedule testing 09/08 week and we can try scheduling the test in [place] instead. Our TTE echoes are going out [...] 6:55 PM CDT ----- Regarding: Liver transplant [id number] Dear team Kindly please submit [id number] for this patient. I had an initial visit with her, and I hope we can complete a liver transplant evaluation on her behalf. I will see her back for a wrap-up visit here in [place]. She will need full workup and consultations, especially Cardiology (abnormal echo 2020) and transplant psychiatry given her psych history. Thanks OM documented in this encounter Plan of Treatment Upcoming Encounters Date Type Specialty Care Team Description Office Visit [facility], 2 Medicine Vernell Perez [address] [place] [phone] Appointment Radiology Matthew Jerome 2 YJoshuaB.B.Lilian Stockton [address] [place] [phone] Hospital Gastroenterology and Mousa, Matthew 2 Encounter Hepatology Vik RodriguezBLilian Bedolla [address] [place] [phone] Surgery Gastroenterology and [facility] [place] ESOPHAG OGASTRODUODENOSCOPY 2 Hepatology Vik RodriguezBLilian Bedolla [address] [place] [phone] Telemedicine Transplant 2 Lab Laboratory Medicine Olinda Frazier M.D., Ph.D. [address] [place] [phone] Lab Laboratory Medicine Olinda Frazier M.D., Ph.D. [address] [place] [phone] Office Visit Transplant Olinda Frazier M.D., Ph.D. [address] [place] [phone] Appointment Radiology Matthew Jerome 2 YJoshuaBSumaBLilian Bedolla [address] [place] [phone] Appointment Gastroenterology and Adrianne, 2 Hepatology Yue Burciaga M.D. [address] [place] [phone] Office Visit Gastroenterology and Matthew Jerome 2 Hepatology Tyrell Rodriguez M.D. [address] [place] [phone] Appointment Radiology QueenieMatthew 2 Tyrell Rodriguez M.D. [address] [place] [phone] Scheduled Procedures Name Priority Associated Diagnoses Date/Time [...] documented as of this encounter Care Teams Gta Relationship Specialty Start Date End Date Elsewhere, Pcp PCP - General Family Medicine 03/10/20 11/30/21 [facility] [place] [facility] 08/25/21 Ervin Schroeder MD Referring Provider Family Medicine 03/24/[address] [place] [phone] documented as of this encounter
--- OUTSIDE RECORDS SUMMARY | 2022-01-31 04:31 | XMS_ITS | Encounter Summary ---
:1990 Author Organization [facility] Address [address] [place] [address] Care Team Providers Name Role Phone Elsewhere, Pcp Primary Care Provider Unavailable Encounter Details Date Type Department Care Team Description 08/11/2021 Hospital Encounter Department of Mousa, Matthew Y, Edema Leg; Laboratory Medicine Joshua Santillan. Cirrhosis Alcoholic (HCC) in [place], [address] [place] [phone] [place], [place] [phone] (Work) [phone] Social History Tobacco Use Types Packs/Day Years [...] do you attend evangelical or Never 2021 christianity services? 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 - 08/13/2021 10:53 PM [facility] Please can you notify the patient [...] Care Team Description Office Visit [facility], 2 Medicine Vernell Perez 300 [place] [address] Appointment Radiology Matthew Jerome 2, M.B.B.S., M.D. 1025 [place] [phone] Hospital Gastroenterology and Mousa, Matthew 2 Encounter Hepatology Tyrell Rodriguez M.D. [address] [place] [phone] Surgery Gastroenterology and Mousa, Matthew ESOPHAG OGASTRODUODENOSCOPY 2 Hepatology Tyrell Rodriguez M.D. [address] [place] [phone] Telemedicine Transplant 2 Lab Laboratory Medicine Karin, 2 Adeline Gannon M.D., Ph.D. [address] [place] [phone] Lab Laboratory Medicine Karin, 2 Adeline Gannon M.D., Ph.D. [address] [place] [phone] Office Visit Transplant Karin, 2 Adeline Gannon M.D., Ph.D. [address] [place] [phone] Appointment Radiology Matthew Jerome 2 Vik RodriguezBLilian Bedolla [address] [place] [phone] Appointment Gastroenterology and Adrianne, 2 Hepatology Yue Burciaga M.D. [address] [place] [phone] Office Visit Gastroenterology and Mousa, Matthew 2 Hepatology Vik RodriguezBLilian Bedolla [address] [place] [phone] Appointment Radiology Matthew Jerome 2 YTyrell M.D. [address] [place] [phone] Scheduled Procedures Name Priority Associated Diagnoses [...] CDT eGFR-Black/Afri >90 >=60 08/11/2021 OWAT can [place] mL/min/BSA 1:53 PM CDT Comment: ----ADDITIONAL INFORMATION---- [...] City/State/ZIP Code Phon e Number [facility] [address] [place] [address] [facility] [address] System in [place] [address] documented in this encounter Visit Diagnoses Diagnosis Edema Leg Cirrhosis Alcoholic (HCC) Cirrhosis Alcoholic (HCC) Hypertension Portal (HCC) documented in this encounter Care Teams Beef Ribber Relationship Specialty Start Date End Date Elsewhere, Pcp PCP - General Family Medicine 03/10/20 11/30/21 Ervin Schroeder MD Referring Provider Family Medicine 03/24/211979 [address] [place] [address] documented as of this encounter
--- OUTSIDE RECORDS SUMMARY | 2022-01-31 04:31 | XMS_ITS | Encounter Summary ---
:1990 Author Organization [facility] Address [address] [place] [address] Care Team Providers Name Role Phone Elsewhere, Pcp Primary Care Provider Unavailable Encounter Details Date Type Department Care Team Description 08/27/2021 Orders Only Department of Mousa, Matthew Y, Cirrhosis [facility] Gastroenterology in M.Joshua Hudson ([facility]) (Primary Dx) [address] 1025 [place] [phone] Social History Tobacco Use Types Packs/Day Years [...] do you attend religious or Never 2021 jew services? Do you belong to any clubs or No 07/17/2021 organizations such as religious groups, unions, fraLilaKutu or athletic groups, or school groups? 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 documented as of this encounter Plan of Treatment Upcoming Encounters Date Type Specialty Care Team Description Office Visit Community Internal [place], 2 Medicine Vernell Perez [address] [place] [phone] Appointment Radiology Matthew Jerome 2 Joshua RodriguezBSumaBGraeme, MJules 1025 [place] [phone] Hospital Gastroenterology and Matthew Jerome 2 Encounter Hepatology Vik RodriguezBGraeme, MJules 1025 [place] [phone] Surgery Gastroenterology and Queenie Matthew ESOPHAG OGASTRODUODENOSCOPY 2 Hepatology Vik RodriguezBLilian Bedolla [address] [place] [phone] Telemedicine Transplant 2 Lab Laboratory Medicine Karin, 2 Adeline Gannon M.D., Ph.D. [address] [place] [phone] Lab Laboratory Medicine Karin, 2 Adeline Gannon M.D., Ph.D. [address] [place] [phone] Office Visit Transplant Karin, 2 Adeline Gannon M.D., Ph.D. [address] [place] [phone] Appointment Radiology Matthew Jerome 2 YElizabeth.B.B.SSuma, Lilian [address] [place] [phone] Appointment Gastroenterology and Adrianne, 2 Hepatology Yue Burciaga M.D. [address] [place] [phone] Office Visit Gastroenterology and [place] Jeromear 2 Hepatology Elizabeth Rodriguez.B.B.Lilian Stockton [address] [place] [phone] Appointment Radiology Matthew Jerome 2 Y M.B.B.SLilian Moise [address] [place] [phone] Scheduled Procedures Name Priority Associated Diagnoses Date/Time ESOPHAGOGASTRODUODENOSCOPY Cirrhosis Alc oholic (HCC) 02/10/2022 8:45 AM CDT Hypertension Portal (HCC) documented as of this encounter Visit Diagnoses Diagnosis Cirrhosis Alcoholic (HCC) - Primary Cirrhosis Alcoholic (HCC) Hypertension Portal (HCC) documented in this encounter Care Teams Principal Technical Specialist Relationship Specialty Start Date End Date Elsewhere, Pcp PCP - General Family Medicine 03/10/20 11/30/21 [facility] 08/25/21 Ervin Schroeder MD Referring Provider Family Medicine 03/24/[address] [place] [phone] documented as of this encounter
--- OUTSIDE RECORDS SUMMARY | 2022-01-31 04:31 | XMS_ITS | Encounter Summary ---
:1990 Author Organization [facility] Address [address] [place] [address] Care Team Providers Name Role Phone Elsewhere, Pcp Primary Care Provider Unavailable Reason for Referral Outpatient (Routine) - Authorized Specialty Diagnoses / Procedures Referred By Contact Refer red To Contact Emergency Medicine Diagnoses Edema Peripheral Elevated Bilirubin Margy Paul M.D. [address] [phone] Referral ID Status Reason Start Date Expiration Date Visits V isits Requested Authorized [id number] Authorized 08/03/2021 08/03/2022 1 1 Outpatient (Routine) - Authorized Specialty Diagnoses / Procedures Referred By Contact Refer red To Contact Emergency Medicine Diagnoses Edema Peripheral Margy Paul M.D. [address] [phone] Referral ID Status Reason Start Date Expiration Date Visits V isits Requested Authorized [id number] Authorized 08/03/2021 08/03/2022 1 1 Reason for Visit Reason Comments Leg Swelling Pt states she has had bilate ral lower leg swelling for the past week. Encounter Details Date Type Department Care Team Description 08/02/2021 - Emergency [facility] Juliana Stevens D.O. [address] [place] [phone] Edema Peripheral (Primary Dx); 08/03/2021 [facility] Margy Paul M.D. 10[address] [place] [address] Hypokalemia; Emergency Department Elevated Bilirubin; 1025 [place] [address] Social History Tobacco Use Types [...] do you attend episcopalian or Never 2021 anabaptism services? Do you [...] or the highest technical, or vocational p OpenDNSram degree you have received? 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 Pt stated to service writer that her mother was on her way from [facility] pick her up at that time. Pt was still in lobby at 0900. Mother was not enroute-pt had never actually talked to her about a ride (had left a text message). Pt approached by service writer and asked what her plan was as hospital rules prohibit her from sitting in lobby until 1pm as that is when pt wants to go visit her friend on the unit. Pt then stated she didn't think she should have been discharged. Pt then informed by service writer that shehas the ability to check back in and be evaluated by another physician. Pt declined and stated she did not want more blood work or another IV. I just want to visit my friend. Pt again talked to someone on the phone and said Will you come and get me?. She then said her mother was on her way. Escorted to [facility] by security. Shyla Ojeda R.N. 08/03/21 [...] of her legs. No beds here in [place]. Have had a conversation regarding admission vs [...] and Family: Twice a week ??? Attends Mormonism Services: Never ??? Active Member of Clubs [...] medical card, plus non medical, last 3/6/am OBJECTIVE: INITIAL VITAL SIGNS: Initial Vitals Temperature Pulse Rate Heart Rate Resp Rate Blood Pressure SpO2 08/02/21211708/02/21211708/02/21 2300 08/02/21211708/02/21211708/02/212117 36.3 ??C 98 94 16 [...] this time. Unfortunately no beds here in [place] and patient prefers to wait until bed availability could potentially open up tomorrow rather than attempt transfer to [facility]. Transfer of patient's care pending admission to [facility] ED attending Dr. Paul. Final Diagnoses: as of 08/06/21 1123 Edema Peripheral Hypokalemia Elevated Bilirubin Anemia INTERVENTIONS: Medications fentaNYL injection 25 mcg (SUBLIMAZE) (25 mcg intravenous Given 08/02/21 0050) fentaNYL injection 50 mcg (SUBLIMAZE) (50 mcg [...] Ketone Negative Bilirubin Negative pH 7.0 Specific [place] 1.005 Urobilinogen 0.2 White Blood Cells None [...] Type Specialty Care Team Description Office Visit Pending Sale To [facility], Medicine Vernell Perez 300 [place] [phone] Appointment Radiology Matthew Jerome 2 Tyrell Rodriguez, Lilian [address] [place] [address] Hospital Gastroenterology and Mousa, Matthew 2 Encounter Hepatology Tyrell Rodriguez M.D. 10[address] [place] [address] Surgery Gastroenterology and Matthew Jerome ESOPHAG OGASTRODUODENOSCOPY 2 Hepatology Tyrell Rodriguez M.D. [address] [place] [address] Telemedicine Transplant 2 Lab Laboratory Medicine Karin, 2 Adeline Gannon M.D., Ph.D. [address] [place] [phone] Lab Laboratory Medicine Karin, 2 Adeline Gannon M.D., Ph.D. [address] [place] [phone] Office Visit Transplant Karin, 2 Adeline Gannon M.D., Ph.D. [address] [place] [phone] Appointment Radiology Matthew Jerome 2 Tyrell Rodriguez M.D. [address] [place] [address] Appointment Gastroenterology and Adrianne, 2 Hepatology Yue Burciaga M.D. [address] [place] [phone] Office Visit Gastroenterology and Luischantell Matthew 2 Hepatology Vik RodriguezBLilian Bedolla [address] [place] [phone] Appointment Radiology Queenie Matthew 2 YTyrell M.D. [address] [place] [phone] Scheduled Procedures Name Priority Associated Diagnoses [...] Hepatic Function Panel (08/03/2021 4:27 AM CDT) [facility] Method Time Signature Bilirubin, Total, P 9.0 [...] City/State/ZIP Code Phon e Number [facility]- [address] [place] [phone] [place] [address] System [address] (ABNORMAL) CBC without Differential (08/03/2021 4:27 AM CDT) [facility] Method Time Signature Hemoglobin 7.5 (L) 11.6 [...] City/State/ZIP Code Phon e Number [facility]- [address] [place] [phone] [place] [address] [place] [address] System [place] [address] Urinalysis with Microscopic: Urine, Midstream (08/03/2021 12:07 [...] 8.0 08/03/2021 12:13 AM CDT MKTO Specific [place] 1.005 1.001 - 1.035 08/03/2021 12:13 AM [...] D.O. LAB URINE ORDERABLES Performing Organization Address City/State/ZIP Code Phon e Number [facility]- [address] [place] [phone] [place] [address] System [address] (ABNORMAL) NT-Pro B-Type Natriuretic Peptide (BNP) (08/02/2021 10:44 PM CDT) P athologist Signature NT-Pro BNP 411 (H) <=140 pg/mL 08/02/2021 MKTO 11:20 PM CDT Comment: NT-proBNP values less [...] supplements. ??If the result does not [facility] clinical observations, repeat testing after patient refrains fr om the use of supplements for at least 12 hours. Specimen Anatomical Collection Method Collection Time Receive d Time (Source) Location / / Volume Laterality Blood (Blood, 08/02/2021 10:44 08/02/2021 Venous) PM CDT 10:50 PM CDT Juliana Stevens D.O. LAB BLOOD ADD-ON Performing Organization Address [facility] Phon e Number [facility]- [address] [place] [phone] [place] [address] (ABNORMAL) Prothrombin Time (PT) (08/02/2021 10:44 [...] D.O. LAB BLOOD ADD-ON Performing Organization Address City/[facility] Phon e Number [facility]- [address] [place] [phone] [place] [address] System in [address] Lipase (08/02/2021 10:44 PM CDT) P athologist Signature Lipase, P 14 13 - 60 U/L 08/02/2021 MKTO 11:31 PM CDT Specimen Anatomical Collection Method Collection Time Receive d Time (Source) Location / / Volume Laterality Blood (Blood, 08/02/2021 10:44 08/02/2021 Venous) PM CDT 10:50 PM CDT Juliana Stevens D.O. LAB BLOOD ADD-ON Performing Organization Address City/[facility] Phon e Number [facility]- [address] [place] [phone] [place] [address] System in [address] (ABNORMAL) Hepatic Function Panel (08/02/2021 10:44 PM CDT) [facility] Method Time Signature Bilirubin, Total, P 10.6 [...] LAB BLOOD ADD-ON Performing Organization Address City/State/ZIP [facility] Phon e Number [facility]- [address] [place] [phone] [place] [address] System in [address] (ABNORMAL) Ammonia (08/02/2021 10:44 PM CDT) [...] City/State/ZIP Code Phon e Number [facility]- [address] [place] [phone] [place] [address] [place] [address] System in [address] (ABNORMAL) Basic Metabolic Panel (08/02/2021 10:44 [...] CDT eGFR-Black/Afri >90 >=60 08/02/2021 MKTO can [place] mL/min/BSA 11:31 PM CDT Comment: ----ADDITIONAL INFORMATION---- Estimated GFR calculated using the 2009 CKD_EPI creatinine equation. eGFR Non-Black/ >90 >=60 mL/min/BSA 08/02/2021 11:31 PM CDT [facility] Comment: ----ADDITIONAL INFORMATION---- Estimated GFR calculated using the 2009 CKD_EPI creatinine equation. Calcium, Total, P 8.7 8.6 - 10.0 mg/dL 08/02/2021 11:3 1 PM CDT [facility] Glucose, P 135 70 - 140 mg/dL 08/02/2021 11:31 PM CDT [facility] Specimen Anatomical Collection Method Collection Time Receive d Time (Source) Location / / Volume Laterality Blood (Blood, 08/02/2021 10:44 08/02/2021 Venous) PM CDT 10:50 PM CDT Juliana Stevens D.O. LAB BLOOD ADD-ON Performing Organization Address City/[facility] Phon e Number [facility]- [address] [place] [phone] [place] [address] [place] [address] System in [address] hCG (Human Chorionic Gonadotropin), Quantitative, (08/02/2021 10:44 PM CDT) athologist Signature HCG, <0.5 <5 IU/L 08/02/2021 [facility] Quantitative, 11:58 PM CDT , P Comment: Biotin has been identified by the chantelle lockett as a potential interfering substance. ??Higher concentr ations of biotin may be found in multivitamins, hair/nail supple ments, and workout supplements. ??If the result does not [facility] clinical observations, repeat testing after patient refrains fr om the use of supplements for at least 12 hours. Specimen Anatomical Collection Method Collection Time Receive d Time (Source) Location / / Volume Laterality Blood (Blood, 08/02/2021 10:44 08/02/2021 Venous) PM CDT 10:50 PM CDT Juliana Stevens D.O. LAB BLOOD ADD-ON Performing Organization Address City/[facility] Phon e Number [facility]- [address] [place] [phone] [place] [address] System in [address] (ABNORMAL) CBC with Differential, Blood (08/02/2021 10:44 PM CDT) [facility] gist Method Time Signature Hemoglobin 7.8 (L) [...] City/State/ZIP Code Phon e Number [facility]- [address] [place] [phone] [place] [address] System in [place] 1025 [facility] ECG 12 Lead (08/02/2021 10:31 PM CDT) P athologist Signature Ventricular Rate 86 BPM MUSE ECG/Min WA Interval 166 ms MUSE QRSD Interval 92 ms MUSE QT Interval 404 ms MUSE QTC Interval 484 ms MUSE P [place] 61 degrees MUSE R [place] 56 degrees MUSE T Wave [place] 32 degrees MUSE Specimen Anatomical Collection Method [...] Peripheral - Primary Hypokalemia Elevated Bilirubin Anemia Cirrhosis Alcoholic (HCC) Hypertension Portal (HCC) documented [...] 0545 (New Bag - Provider: Shyla Ojeda RSumaN.)0620 (Stopped - Provider: Shyla Ojeda RSumaN.) 12.5 g, intravenous, Once, On 08/03/21 at 0538, For 1 dose, If no infusion rate specified: Administer the 25% solution at 100 mL/hr fentaNYL injection 25 mcg (SUBLIMAZE) (COMPLETED) 2320 (Given - Provider: Rachel Vivar RGabby) 25 mcg, intravenous, Once, On 08/02/21 at 2222, For 1 dose fentaNYL injection 50 mcg (SUBLIMAZE) (COMPLETED) 0126 (Given - Provider: Rachel Vivar RSumaN.) 50 mcg, intravenous, Once, On 08/03/21 at [...] injection documented in this encounter Care Teams Event Technician Relationship Specialty Start Date End Date Elsewhere, Pcp PCP - General Family Medicine 03/10/20 11/30/21 Ervin Schroeder MD Referring Provider Family Medicine 03/24/[address] [place] [address] documented as of this encounter
--- OUTSIDE RECORDS SUMMARY | 2022-01-31 04:31 | XMS_ITS | Encounter Summary ---
:1990 Author Organization [facility] Address [address] [place] [id number] Care Team Providers Name Role Phone Elsewhere, Pcp Primary Care Provider Unavailable Encounter Details Date Type Department Care Team Description 08/01/2021 Clinical Communication [facility] Lester Garber La uren M, [place] M.D. [address] [place] [address] [address] [place] [phone] Social History Tobacco Use Types Packs/Day Years [...] or relatives? How often do you attend confucianism or Never 2021 anabaptism services? 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 She has been wrapping [...] Care Team Description Office Visit Community Internal [facility], 2 Medicine Vernell Perez [address] [place] [phone] Appointment Radiology [facility] 2 YTyrell, Lilian [address] [place] [address] [phone] Hospital Gastroenterology and [facility] 2 Encounter Hepatology Tyrell Rodriguez, Lilian [address] [place] [address] [phone] Surgery Gastroenterology and [facility] ESOPHAG OGASTRODUODENOSCOPY 2 Hepatology Tyrell Rodriguez, Lilian [address] [place] [address] [phone] Telemedicine Transplant 2 Lab Laboratory Medicine Olinda Frazier M.D., Ph.D. [address] [place] [phone] Lab Laboratory Medicine Olinda Frazier M.D., Ph.D. [address] [place] [phone] Office Visit Transplant Karin, 2 Adeline Gannon M.D., Ph.D. [address] [place] [phone] Appointment Radiology Matthew Jerome 2 Y M.B.B.SSuma, Lilian [address] [place] [phone] Appointment Gastroenterology and Olinda Silver Hepatology Yue Burciaga M.D. [address] [place] [phone] Office Visit Gastroenterology and Matthew Jerome 2 Hepatology Jennifer M.B.B.SSuma, MJules [address] [place] [phone] Appointment Radiology Matthew Jerome 2 Y M.B.B.SSuma, MJules [address] [place] [phone] Scheduled Procedures Name Priority Associated Diagnoses Date/Time ESOPHAGOGASTRODUODENOSCOPY Cirrhosis Alc oholic (HCC) 02/10/2022 8:45 AM CDT Hypertension Portal (HCC) documented as of this encounter Visit Diagnoses Not on filedocumented in this encounter Care Teams Ordnance Artificer Relationship Specialty Start Date End Date Elsewhere, Pcp PCP - General Family Medicine 03/10/20 11/30/21 Ervin Schroeder MD Referring Provider Family Medicine 03/24/[address] [place] [phone] documented as of this encounter
--- OUTSIDE RECORDS SUMMARY | 2022-01-31 04:31 | XMS_ITS | Encounter Summary ---
:1990 Author Organization [facility] Address [address] [place] [address] Care Team Providers Name Role Phone Elsewhere, Pcp Primary Care Provider Unavailable Reason for Referral Transplant (Routine) - Closed Specialty Diagnoses / Procedures Referred By Contact Refer red To Contact Transplant Surgery / Warren Connor [facility] Transplant Lilian, M.P.H. [address] [place] [address] Referral ID Status Reason Start Date Expiration Date Visits Requ ested Visits Authorized [id number] Closed 08/26/2021 08/26/2022 1 1 ransplant (Routine) - Authorized Specialty Diagnoses / Procedures Referred By Contact Refer red To Contact Transplant Surgery / Diagnoses Cirrhosis Alcoholic (HCC) Abnormal Liver Function Test Ascites Pretransplant Recipient Evaluation Exam Preoperative Exam Warren Connor [facility] Transplant Lilian, M.P.H. [address] [place] [address] Referral ID Status Reason Start Date Expiration Date Visits V isits Requested Authorized [id number] Authorized 08/25/2021 08/25/2022 1 1 utpatient (Routine) - Closed Specialty Diagnoses / Procedures Referred By Contact Refer red To Contact Diagnoses Cirrhosis Alcoholic (HCC) Abnormal Liver Function Test Ascites Pretransplant Recipient Evaluation Exam Preoperative Exam Warren Connor M.D., [facility] Procedures BMD Bone Density Spine Hips M.P.H. [address] [place] [address] Referral ID Status Reason Start Date Expiration Date Visits Requ ested Visits Authorized [id number] Closed 08/25/2021 08/25/2022 1 1 ransplant (Routine) - Closed Specialty Diagnoses / Procedures Referred By Contact Refer red To Contact Transplant Surgery / Diagnoses Cirrhosis Alcoholic (HCC) Abnormal Liver Function Test Ascites Pretransplant Recipient Evaluation Exam Preoperative Exam Warren Connor [facility] Transplant M.Jeri, M.P.H. [address] [place] [address] Referral ID Status Reason Start Date Expiration Date Visits Requ ested Visits Authorized [id number] Closed 08/25/2021 08/25/2022 1 1 ransplant (Routine) - Closed Specialty Diagnoses / Procedures Referred By Contact Refer red To Contact Transplant Surgery / Diagnoses Cirrhosis Alcoholic (HCC) Abnormal Liver Function Test Ascites Pretransplant Recipient Evaluation Exam Preoperative Exam Warren Connor [facility] Transplant M.Jeri, M.P.H. [address] [place] [address]14 Referral ID Status Reason Start Date Expiration Date Visits Requ ested Visits Authorized [id number] Closed 08/25/2021 08/25/2022 1 1 utpatient (Routine) - Closed Specialty Diagnoses / Procedures Referred By Contact Refer red To Contact Preventive Medicine Diagnoses Cirrhosis Alcoholic (HCC) Abnormal Liver Function Test Ascites Pretransplant Recipient Evaluation Exam Preoperative Exam Warren Connor [facility] Lilian, M.P.H. [address] [place] [address]75 Referral ID Status Reason Start Date Expiration Date Visits Requ ested Visits Authorized [id number] Closed 08/25/2021 08/25/2022 1 1 utpatient (Routine) - Closed Specialty Diagnoses / Procedures Referred By Contact Refer red To Contact Pulmonary Medicine / Diagnoses Cirrhosis Alcoholic (HCC) Abnormal Liver Function Test Ascites Pretransplant Recipient Evaluation Exam [facility] Lilian, M.P.H. [address] [place] [address]74 Referral ID Status Reason Start Date Expiration Date Visits Requ ested Visits Authorized [id number] Closed 08/25/2021 08/25/2022 1 1 utpatient (Routine) - Closed Specialty Diagnoses / Procedures Referred By Contact Refer red To Contact Diagnoses Cirrhosis Alcoholic (HCC) Abnormal Liver Function Test Ascites Pretransplant Recipient Evaluation Exam Preoperative Exam Warren Connor M.D., [facility] Procedures ECG 12 Lead M.P.H. [address] [place] [address]94 Referral ID Status Reason Start Date Expiration Date Visits Requ ested Visits Authorized [id number] Closed 08/25/2021 08/25/2022 1 1 utpatient (Routine) - Closed Specialty Diagnoses / Procedures Referred By Contact Refer red To Contact Diagnoses Cirrhosis Alcoholic (HCC) Abnormal Liver Function Test Ascites Pretransplant Recipient Evaluation Exam Preoperative Exam Warren Connor M.D., [facility] Procedures Short renal clearance: Iothalamate (Renal Studies Unit) M.P.H. [address] [place] [address]11 Referral ID Status Reason Start Date Expiration Date Visits Requ ested Visits Authorized [id number] Closed 08/25/2021 08/25/2022 1 1 Specialty Diagnoses / Procedures Referred By Contact Refer red To Contact T [facility] [address] [place] [address] Referral ID Status Reason Start Date Expiration Date Visits Requ ested Visits Authorized utpatient (Routine) - Closed Specialty Diagnoses / Procedures Referred By Contact Refer red To Contact Pharmacy Diagnoses Cirrhosis Alcoholic (HCC) Abnormal Liver Function Test Ascites Pretransplant Recipient Evaluation Exam Preoperative Exam Warren Connor M.D., [facility] M.P.H. [address] [place] [address] Referral ID Status Reason Start Date Expiration Date Visits Requ ested Visits Authorized [id number] Closed 08/25/2021 08/25/2022 1 1 ransplant (Routine) - Closed Specialty Diagnoses / Procedures Referred By Contact Refer red To Contact Transplant Surgery / Diagnoses Cirrhosis Alcoholic (HCC) Abnormal Liver Function Test Ascites Pretransplant Recipient Evaluation Exam Preoperative Exam Warren Connor [facility] Transplant Lilian, M.P.H. [address] [place] [address]1103 Referral ID Status Reason Start Date Expiration Date Visits Requ ested Visits Authorized [id number] Closed 08/25/2021 08/25/2022 1 1 ransplant (Routine) - Closed Specialty Diagnoses / Procedures Referred By Contact Refer red To Contact Transplant Surgery / Diagnoses Cirrhosis Alcoholic (HCC) Abnormal Liver Function Test Ascites Pretransplant Recipient Evaluation Exam Preoperative Exam Warren Connor [facility] Transplant Lilian, M.P.H. [address] [place] [address]603 Referral ID Status Reason Start Date Expiration Date Visits Requ ested Visits Authorized [id number] Closed 08/25/2021 08/25/2022 1 1 ransplant (Routine) - Closed Specialty Diagnoses / Procedures Referred By Contact Refer red To Contact Transplant Surgery / Diagnoses Cirrhosis Alcoholic (HCC) Abnormal Liver Function Test Ascites Pretransplant Recipient Evaluation Exam Preoperative Exam Warren Connor [facility] Transplant Lilian, M.P.H. [address] [place] [address]20 Referral ID Status Reason Start Date Expiration Date Visits Requ ested Visits Authorized [id number] Closed 08/25/2021 08/25/2022 1 1 ransplant (Routine) - Closed Specialty Diagnoses / Procedures Referred By Contact Refer red To Contact Transplant Surgery / Diagnoses Cirrhosis Alcoholic (HCC) Abnormal Liver Function Test Ascites Pretransplant Recipient Evaluation Exam Preoperative Exam Warren Connor [facility] Transplant Elizabeth.Jeri, M.P.H. [address] [place] [address]36 Referral ID Status Reason Start Date Expiration Date Visits Requ ested Visits Authorized [id number] Closed 08/25/2021 08/25/2022 1 1 ransplant (Routine) - Closed Specialty Diagnoses / Procedures Referred By Contact Refer red To Contact Transplant Surgery / Diagnoses Cirrhosis Alcoholic (HCC) Abnormal Liver Function Test Ascites Pretransplant Recipient Evaluation Exam Preoperative Exam Warren Connor [facility] Transplant Elizabeth.Jeri, M.P.H. [address] [place] [address] Referral ID Status Reason Start Date Expiration Date Visits Requ ested Visits Authorized [id number] Closed 08/25/2021 08/25/2022 1 1 Reason for Visit Reason Comments Referral - Liver Txp Phone screen Appointment Request (Routine) - Pending Review Specialty Diagnoses / Procedures Referred By Contact Refer red To Contact Transplant Diagnoses [facility] Procedures Referral ID Status Reason Start Date Expiration Date Visits V isits Requested Authorized [id number] Pending 08/21/2021 08/21/2022 1 1 Review Encounter Details Date Type Department Care Team Description 08/25/2021 Nurse Only Laney Canela Re ferral - Liver Txp [facility] M.A.N., R.N., (Phone screen) and Clinical Regeneration [facility].C.T. C. in [facility] [phone] [address] [facility] [[email or web address]] (Work) [place] [address] Social History Tobacco Use Types Packs/Day [...] do you attend anglican or Never 2021 faith services? Do you [...] the highest technical, or vocational p [facility] degree you have received? Sex Assigned at Date Recorded Female 04/12/2021 7:39 PM [employer] SUR[employer] documented as of this encounter Progress Notes [...] [] Yes [x] No Drive time: 1.5hr [place] Caregiver: Lobito, significant other PCP: Dr. Roge Schroeder Facility: [facility] Location: [facility] Mental Health Technician: Kerry Naranjo NP /Dr. Jerome Facility: [facility] Location: [facility] Fax: Preferred lab: [facility] Lab Location: [place] Fax: Patient online messaging interest/discussed? [x] Yes [] No Comment: Additional orders needed at time of evaluation: hx eating disorder Clinical Nurse Utilized: [] Yes [x] No Prior to starting the phone screen process, the following information was verbalized to educate the patient on the Evaluation Process. Received authorization for liver transplant referral. Information for Liver Transplant Candidates [id number] was reviewed with the patient via telephone call. Confirmed her interest in pursuing a liver transplant evaluation at [facility]. The patient verbalized understanding of the information [...] Type Specialty Care Team Description Office Visit [facility] Internal [facility], 2 Medicine Vernell Perez [address] [place] [phone] Appointment Radiology Matthew Jerome 2 Tyrell Rodriguez, Lilian [address] [place] [phone] Hospital Gastroenterology and Queenie Matthew 2 Encounter Hepatology Tyrell Rodriguez M.D. [address] [place] [phone] Surgery Gastroenterology and Luischantell, Matthew ESOPHAG OGASTRODUODENOSCOPY 2 Hepatology Joshua RodriguezBSumaBLilian Bedolla [address] [place] [phone] Telemedicine Transplant 2 Lab Laboratory Medicine Karin, 2 Adeline Gannon M.D., Ph.D. [address] [place] [phone] Lab Laboratory Medicine Karin, 2 Adeline Gannon M.D., Ph.D. [address] [place] [phone] Office Visit Transplant Karin, 2 Adeline Gannon M.D., Ph.D. [address] [place] [phone] Appointment Radiology Matthew Jerome 2 YElizabeth.B.B.SSuma, Lilian [address] [place] [phone] Appointment Gastroenterology and Adrianne, 2 Hepatology Yue Burciaga M.D. [address] [place] [phone] Office Visit Gastroenterology and Matthew Jerome 2 Hepatology Joshua RodriguezB.B.SLilian Moise [address] [place] [phone] Appointment Radiology Matthew Jerome 2 Y M.B.B.SLilian Moise [address] [place] [phone] Scheduled Orders Name Type Priority Associated [...] Associated Diagnoses Date/Time ESOPHAGOGASTRODUODENOSCOPY Cirrhosis Alc oholic ([facility]) 02/10/2022 8:45 AM CDT Hypertension Portal (HCC) Scheduled Referrals Name Type Priority Associated Order Schedule Diagnoses Transplant - Outpatient Referral Routine Cirrhosis Alcoholic E xpected: Financial assessment ([facility]) 09/22/2021 consult (clinic) Abnormal Liver (Approxim ate), Function Test Expires: Ascites 12/01/2022 Pretransplant Recipient Evaluation Exam Preoperative Exam Transplant - Lung Outpatient Referral Routine Cirrhosis Alcoho lic Expected: transplant consult ([facility]) 09/22/2021 (clinic) Abnormal Liver (Approximate) , Function Test Expires: Ascites 12/01/2022 Pretransplant Recipient Evaluation Exam Preoperative Exam Transplant - Medical Outpatient Referral Routine Cirrhosis Alc oholic Expected: nutrition therapy ([facility]) 09/22/2021 consult (clinic) Abnormal Liver (Approxim ate), Function Test Expires: Ascites 12/01/2022 Pretransplant Recipient Evaluation Exam Preoperative Exam Transplant - Social Outpatient Referral Routine Cirrhosis Alco holic Expected: work consult ([facility]) 09/22/2021 (clinic) Abnormal Liver (Approximate) , Function Test Expires: Ascites 12/01/2022 Pretransplant Recipient Evaluation Exam Preoperative Exam Transplant - Surgery Outpatient Referral Routine Cirrhosis Alc oholic Expected: consult (clinic) ([facility]) 09/22/2021 Abnormal Liver (Approximate) , Function Test Expires: Ascites 12/01/2022 Pretransplant Recipient Evaluation Exam Preoperative Exam Pharmacy - Outpatient Referral Routine Cirrhosis Alcoholic E xpected: Medication therapy ([facility]) 09/22/2021 management - Abnormal Liver (Approximate) , transplant consult Function Test Expires: (clinic) Ascites 12/01/2022 Pretransplant Recipient Evaluation Exam Preoperative Exam Transplant - Liver Outpatient Referral Routine Cirrhosis Alcoh olic Expected: pre education visit ([facility]) 09/22/2021 (clinic) Abnormal Liver (Approximate) , Function Test Expires: Ascites 12/01/2022 Pretransplant Recipient Evaluation Exam Preoperative Exam Nicotine Dependence Outpatient Referral Routine Cirrhosis Alco holic Expected: - Counseling consult ([facility]) 10/01/2021 (clinic) Abnormal Liver (Approximate) , Function Test Expires: Ascites 12/01/2022 Pretransplant Recipient Evaluation Exam Preoperative Exam Preventive Medicine Outpatient Referral Routine Cirrhosis Alco holic Expected: - Preventive ([facility]) 10/01/2021 services consult Abnormal Liver (Approxim ate), (clinic) Function Test Expires: Ascites 12/01/2022 Pretransplant Recipient Evaluation Exam Preoperative Exam Transplant - Outpatient Referral Routine Cirrhosis Alcoholic E xpected: Psychiatry and ([facility]) 09/22/2021 Psychology consult Abnormal Liver (Approx imate), (clinic) Function Test Expires: Ascites 12/01/2022 Pretransplant Recipient Evaluation Exam Preoperative Exam Transplant - Outpatient Referral Routine Cirrhosis Alcoholic E xpected: Psychiatry and ([facility]) 09/22/2021 Psychology consult Abnormal Liver (Approx imate), (clinic) Function Test Expires: Ascites 12/01/2022 Pretransplant Recipient Evaluation Exam Preoperative Exam Transplant - Outpatient Referral Routine Cirrhosis Alcoholic E xpected: Psychiatry and ([facility]) 09/22/2021, Psychology consult Abnormal Liver Expires : (clinic) Function Test 12/01/2022 Ascites Pretransplant Recipient Evaluation Exam Preoperative Exam Transplant Heart Outpatient Referral Routine Expe cted: office visit 09/22/2021, (clinic) Expires: 12/01/2022 documented as of this encounter Results BMD Bone Density Spine Hips (10/09/2021 4:37 PM CDT) Anatomical Region Laterality Modality Hip, Lumbar Spine, Nuclear Medicine RST LOS, N/A Radiographic Imaging Musculoskeletal ARZ LOS, Jaimekaniceto FLA LOS Specimen (Source) Anatomical Collection Method Collection Time Re ceived Time Location / / Volume Laterality 10/09/2021 4:50 PM CDT Impressions 10/09/2021 4:51 PM CDT Bone mineral density below the expected range for age. Narrative 10/09/2021 4:51 PM CDT EXAM: ??BMD BONE DENSITY SPINE HIPS Bone Mineral Density (BMD) analysis perf ormed on [employer] with serial number [id number]. ? FINDINGS: Left Hip: Femur Neck: BMD [...] including images and graphs, is available in [employer]. In the absence of other causes of [...] Mineral Density (BMD) analysis perf ormed on [employer] with serial number [id number]. FINDINGS: Left Hip: Femur Neck: BMD = [...] range for age. Warren Connor M.D., M.P.H. [facility] DXA PROCEDURES Pulmonary Function Tests (10/07/2021 3:07 PM CDT) P athologist Signature FVC 4.04 L [place] SUITE FVC% 111 % [place] [place] SUITE FVCLLN 2.88 L [place] SUITE FEV1 3.62 L [place] SUITE FEV1% 118 % [place] [place] SUITE [id number] 2.45 L [place] SUITE FEV1/FVC 90 % [place] [place] SUITE FEV1/FVCLLN 73 % [facility] [place] SUITE FEF 25-75 5.30 L/sec [facility] [place] SUITE PGR31-44% 154 % [place] [place] SUITE [id number] 2.20 L/sec [place] [place] SUITE SVC 4.19 L [place] [place] SUITE RV 1.17 L [place] SUITE RVULN 2.33 L [place] [place] SUITE TLC 5.36 L [place] SUITE TLC% 111 % [place] SUITE TLCLLN 3.47 L [place] SUITE RV/TLC 22 % [place] [place] SUITE RV/TLC% 72 % [place] SUITE RV/TLCuln 44 % [place] SUITE DLCO 16.63 ml/min/mmHg [facility] DLCO% 77 % [facility] DLCOlln 15.76 ml/min/mmHg [facility] DLCOc 20.09 ml/min/mmHg [facility] DLCOc% 94 % [facility] VA 5.32 L [facility] VA% 115 % [facility] VAlln 3.76 L [facility] Height 159.00 [facility] Weight in Kg 59.70 [facility] BMI 23.6 [facility] Specimen (Source) Anatomical Collection Method Collection Time Re ceived Time Location / / Volume Laterality 10/07/2021 2:32 PM CDT Impressions [facility] - 10/10/2021 8:25 AM C DT TECHNICAL [...] Organization Address City/State/ZIP Code Phon e Number [facility] Ethyl Glucuronide Screen with Reflex, Urine (09/30/2021 8:23 AM CDT) [facility] Method Time Signature Ethyl Negative Cutoff: 09/30/2021 SDSC Glucuronide Scrn 500 ng/mL 11:12 AM CDT w/Reflex, U Comment: ----ADDITIONAL INFORMATION---- This test was developed and its performa nce characteristics determined by [facility] in a manner consistent with CLIA [...] City/State/ZIP Code Phon e Number [facility] [address] [place], [place] [address] [facility] [place] [address] Laboratory Medicine and Pathology [address] [place] (ABNORMAL) Bacterial Culture, Aerobic + Susc, Urine (09/30/2021 8:23 AM CDT) Component Value Ref Test Analysis Performed At [facility] gist Range Method Time Signature Urine Culture [...] City/State/ZIP Code Phon e Number [facility] - [address] [place], [place] [address] [facility] [place] [address] [facility] [place] [address] (ABNORMAL) Drug Abuse Survey with Confirmation, Panel 9, Urine (09/30/2021 8:23 AM CDT) Component Value Ref Test Analysis Performed At [facility] Range Method Time Signature Alcohol Negative [...] characteristics were determi foreign by [facility] in a manner consistent with CLIA requirements. This test has not been cleared or approved by the U.S. Food and Drug Administration . Specimen Anatomical Collection Method Collection Time Receive d Time (Source) Location / / Volume Laterality Urine (Urine, 09/30/2021 8:23 AM 10/01/19 22 Midstream) CDT 10:00 AM CDT Warren Connor M.D., M.P.H. LAB URINE ORDERABLES Performing Organization Address City/[facility]/ZIP Code Phon e Number [facility] [address] [place] [address] [facility] [place] [address] Laboratory Medicine and Pathology [address] [place] Urinalysis with Microscopic: Urine, Midstream (09/30/2021 8:23 AM CDT) Patholo gist Method [...] 22 8:23 Midstream) CDT AM CDT Warren Connor M.D., M.P.H. LAB URINE ORDERABLES Performing Organization Address City/[facility]/ZIP Code Phon e Number [facility] - [address] [place], [place] [address] [facility] [place] [place] [address] [facility] [address] Transplant ABO Confirmation (09/30/2021 7:43 AM CDT) P athologist Signature Transplant ABO B Pos 09/30/2021 ETRM Confirmation 11:13 AM CDT Specimen Anatomical Collection Method Collection Time Receive d Time (Source) Location / / Volume Laterality Blood (Blood, 09/30/2021 7:43 AM 10/01/19 22 Venous) CDT 10:06 AM CDT Warren Connor M.D., M.P.H. LAB BLOOD BANK TEST OR DERABLES Performing Organization Address [facility] Phon e Number [facility] - [address] [place], [place] [address] [facility] [place] [address] [facility] [address] [facility] (ABNORMAL) Hemoglobin A1c (09/30/2021 7:39 AM CDT) [...] M.P.H. LAB BLOOD ADD-ON Performing Organization Address [facility] Phon e Number [facility] - [address] [place], [place] [address] [facility] [place] [address] [facility] 200 [facility] (ABNORMAL) CBC no call back, reflex T/S [...] City/State/ZIP Code Phon e Number [facility] - [address] [place], [place] [address] [facility] [place] [address] [facility] [address] (ABNORMAL) Lwkju-4-Gybaczkwzwt Proteotype S/Z by LC-MS/MS (09/30/2021 7:38 AM CDT) athologist Signature Ktnjp-4-Blrxwu 211 (H) 100 - 190 10/01/2021 [facility] ypsin, S mg/dL 9:47 AM CDT Comment: ----ADDITIONAL INFORMATION---- Method: Nephelometry Interpretation S Mutation: Negative 10/02/2021 3:[address] [facility] Z Mutation: Negative Results most consistent with MM phenotype. Comment: ----ADDITIONAL INFORMATION---- This test was developed and its performa nce characteristics determined by [facility] in a manner consistent with CLIA [...] City/State/ZIP Code Phon e Number [facility] [address] [place], [place] [address] [facility] [place] [address] Laboratory Medicine and Pathology [address] [place] Phosphatidylethanol (Peth), whole blood- Sent Out Lab (09/30/2021 7:38 AM CDT) Component Value Ref Range Test Analysis Performed Pathologis t Method Time At Signature Phosphatidylethanol NEGATIVE NEGATIVE 10/03/2021 MTI (PEth) ng/mL 10:27 PM CDT Comment: Analyzed compound: PEth 16:0/18:1. ? 2-jrpnuvcnt-5-nvnmxe-eu-vjazpxc-3 -phosphoethanol. ? Analysis performed by Liquid Chromatogra [...] LAB BLOOD NON ADD-ON Performing Organization Address [facility] Phon e Number [employer] [address] [place] [address] [facility] [employer], [facility]. [place], [place] [id number] [place] [address] hCG (Human Chorionic Gonadotropin), Quantitative, (09/30/2021 7:38 AM CDT) athologist Signature HCG, <0.5 <5 IU/L 09/30/2021 DT Quantitative, 10:47 AM CDT , S Specimen Anatomical Collection Method Collection Time Receive d Time (Source) Location / / Volume Laterality Blood (Blood, 09/30/2021 7:38 AM 10/01/19 22 8:07 Venous) CDT AM CDT Warren Connor M.D., M.P.H. LAB BLOOD ADD-ON Performing Organization Address City/[facility] Phon e Number [facility] LABORATORIES - [address] [place], [place] [address] [place] [address] [facility] [address] (ABNORMAL) AFP (Alpha-Fetoprotein), Tumor Marker (09/30/2021 7:38 AM CDT) athologist Signature Alpha-Fetoprote 14 (H) ng/mL 09/30/2021 SDSC in, Tumor 4:01 PM CDT Marker, S Comment: ----REFERENCE VALUE---- <8.4 Reference values are for non- subjects only; production of AFP elevates values in women. ----ADDITIONAL INFORMATION---- In this [place] assay AFP concen trations are <8.4 ng/mL [...] method is an immunoenzymatic assay manufactured by [employer]. and is tested on the [employer] DxI 800. Values obtained with different [...] City/State/ZIP Code Phon e Number [facility] [address] [place] [address] SUPPORT [facility] [place] [address] Laboratory Medicine and Pathology [address] [place]AP[place] Vitamin E Level (09/30/2021 7:38 AM CDT) athologist Signature A-Tocopherol, 6.3 5.5 - 17.0 10/01/2021 [facility] Vitamin E mg/L 1:44 PM CDT Comment: ----ADDITIONAL INFORMATION---- This test was developed and its performa nce characteristics determined by [facility] in a manner consistent with CLIA requirements. This test has not been cleared or approved by the U.S. Meggan d and Drug Administration. Specimen Anatomical Collection Method Collection Time Receive d Time (Source) Location / / Volume Laterality Blood (Blood, 09/30/2021 7:38 AM 10/01/19 22 Venous) CDT 11:15 AM CDT Warren Connor M.D., M.P.H. LAB BLOOD NON ADD-ON Performing Organization Address City/[facility] Phon e Number [facility] [address] [place], [place] [address] [facility] [place] [address] Laboratory Medicine and Pathology [address] [place] [address] Dr. CHAPPELL 25-Hydroxyvitamin D2 and D3 (09/30/2021 [...] performa nce characteristics determined by [facility] in a manner consistent with CLIA requirements. This test has not been cleared or approved by the U.[place]. Meg[place] d and Drug Administration. Specimen Anatomical Collection Method Collection Time Receive d Time (Source) Location / / Volume Laterality Blood (Blood, 09/30/2021 7:38 AM 10/01/19 22 Venous) CDT 10:21 AM CDT Warren Connor M.D., M.P.H. LAB BLOOD ADD-ON Performing Organization Address City/[facility] Phon e Number [facility] [address] [place], [place] [address] SUPPORT CENTER [facility] [place] [address] Laboratory Medicine and Pathology [address] [place] [address] Dr. CHAPPELL (ABNORMAL) Vitamin A Level (09/30/2021 7:38 AM CDT) P athologist Signature Vitamin A 9.5 (L) 32.5 - 78.0 10/01/2021 [facility] mcg/dL 11:30 AM CDT Comment: In this sample, the retinol (vitamin A) level indicates a severe deficiency. ----ADDITIONAL INFORMATION---- This test was developed and its performa nce characteristics determined by [facility] in a manner consistent with CLIA [...] City/State/ZIP Code Phon e Number [facility] [address] [place], [place] [address] SU[address] C[facility] [place] [address] Laboratory Medicine and Pathology [address] [place]AP[place] HLA Class II Typing by Low Resolution, Recipient (09/30/2021 7:38 AM CDT) Patholo gist Method Time Signature DRB1 - 1 DR4 Not 10/10/2021 DBB8 Equivalent Applicable 10:12 AM CDT DRB1 - 2 DR16 Not 10/10/2021 DBB8 Equivalent Applicable 10:12 AM CDT DRB1 - 1 DRB1*04:01 Not 10/10/2021 DBB8 Molecular Applicable 10:12 AM CDT DRB1 - 2 DRB1*16:02 Not 10/10/2021 DBB8 Molecular Applicable 10:12 AM CDT DDI762 - 1 DR53 Not 10/10/2021 DBB8 Equivalent Applicable 10:12 AM CDT MFD510 - 2 DR51 Not 10/10/2021 DBB8 Equivalent Applicable 10:12 AM CDT ZTC425 - 1 DRB4*01:03 Not 10/10/2021 DBB8 Molecular Applicable 10:12 AM CDT KZD590 - 2 DRB5*02:02 Not 10/10/2021 DBB8 Molecular [...] performa nce characteristics determined by [facility] in a manner co nsistent with CLIA requirements. This test has not been norah ared or approved by the U.S. Food and Drug Administration. CLIA: [id number] ??CLIA Hay Stacker: THAIS CAR MD,PhD Specimen Anatomical Collection Method Collection Time Receive d Time (Source) Location / / Volume Laterality Blood (Blood, 09/30/2021 7:38 AM 10/01/19 8:12 Venous) CDT AM CDT Warren Connor M.D., M.P.H. LAB HLA ORDERABLES Performing Organization Address City/State/ZIP Code Phon e Number [facility] LABORATORIES - [address] [place], [place] [address] [facility] [place] [place] [place] [address] [facility] [address] [facility] HLA Class I Typing by Low Resolution, Recipient (09/30/2021 7:38 AM CDT) [facility] gist Method Time Signature A - 1 A3 [...] performa nce characteristics determined by [facility] in a manner co nsistent with CLIA requirements. This test has not been norah ared or approved by the U.S. Food and Drug Administration. CLIA: [id number] ??CLIA Hay Stacker: THAIS CAR MD,PhD Specimen Anatomical Collection Method Collection Time Receive d Time (Source) Location / / Volume Laterality Blood (Blood, 09/30/2021 7:38 AM 10/01/19 22 8:12 Venous) CDT AM CDT Warren Connor M.D., M.P.H. LAB HLA ORDERABLES Performing Organization Address [facility] Phon e Number [facility] LABORATORIES - [address] [place], [place] [address] [facility] [place] [place] [place] [address] Folate (09/30/2021 7:38 AM CDT) P athologist Signature Folate, S >20.0 >=4.0 mcg/L 09/30/2021 9:31 DTL AM CDT Specimen Anatomical Collection Method Collection Time Receive d Time (Source) Location / / Volume Laterality Blood (Blood, 09/30/2021 7:38 AM 10/01/19 22 8:07 Venous) CDT AM CDT Warren Connor M.D., M.P.H. LAB BLOOD ADD-ON Performing Organization Address [facility] Phon e Number [facility] LABORATORIES - [address] [place], [place] [address] [facility] [place] [address] (ABNORMAL) Parathyroid Hormone (PTH) (09/30/2021 7:38 [...] M.P.H. LAB BLOOD ADD-ON Performing Organization Address City/[facility]/[place] [facility] [place] Number [facility] LABORATORIES - [address] T4 (Thyroxine), Free (09/30/2021 7:38 AM CDT) athologist Signature T4 (Thyroxine), 1.3 0.9 - 1.7 09/30/2021 DT Free, S ng/dL 10:47 AM CDT Specimen Anatomical Collection Method Collection Time Receive d Time (Source) Location / / Volume Laterality Blood (Blood, 09/30/2021 7:38 AM 10/01/19 22 8:07 Venous) CDT AM CDT Warren Connor M.D., M.P.H. LAB BLOOD ADD-ON Performing Organization Address [facility]/ZIP [facility] [place] Phon e Number [facility] LABORATORIES - [address] [place] [id number] [address] (ABNORMAL) S-TSH (Thyroid-Stimulating Hormone - Sensitive) (09/30/2021 7:38 AM CDT) athologist [facility] TSH, Sensitive 5.9 (H) 0.3 - 4.2 09/30/2021 DT mIU/L 9:15 AM CDT Specimen Anatomical Collection Method Collection Time Receive d Time (Source) Location / / Volume Laterality Blood (Blood, 09/30/2021 7:38 AM 10/01/19 22 8:07 Venous) CDT AM CDT Warren Connor M.D., M.P.H. LAB BLOOD ADD-ON Performing Organization Address City/[facility]/ZIP Code Phon e Number [facility] - [address] [place] [address] Type and Screen (with reflex Antibody ID) (09/30/2021 7:38 AM CDT) Patholo gist Method Time Signature ABORh B Pos Not 09/30/2021 ETRM applicable 11:13 AM CDT Antibody Negative Negative 09/30/2021 ETRM Screen 11:21 AM CDT Type & Screen 10/03/2021 09/30/2021 ETRM Expiration 23:59 11:13 AM CDT Testing [place] DEFAULT 09/30/2021 ETRM Location 10:17 AM CDT Specimen Anatomical Collection Method Collection Time Receive d Time (Source) Location / / Volume Laterality Blood (Blood, 09/30/2021 7:38 AM 10/01/19 22 Venous) CDT 10:17 AM CDT Warren Connor M.D., M.P.H. LAB BLOOD BANK TEST OR DERABLES Performing Organization Address City/State/ZIP Code Phon e Number [facility] LABORATORIES - [address] [place], [place] [address] [facility] [place] [address] [facility] [address] QuantiFERON-Tb Gold Plus, Blood (09/30/2021 7:38 [...] of Tuberculosis in Adults and Children [Sherman DM et. al. Clin. Infect. Dis. 2017;64(2):111-115]. [...] Result 0.00 IU/mL 10/01/2021 10:[address] [facility] Specimen Anatomical Collection Method Collection Time Receive d Time (Source) Location / / Volume Laterality Blood (Blood, 09/30/2021 7:38 AM 10/01/19 9:36 Venous) CDT AM CDT Narrative [facility] - 10/01/2021 10:03 AM CDT Specimen Information: Specimen ID: [id number] Specimen Type: Blood Specimen Collection Start Date: 10/01/19 ??7:38 AM Specimen Received Date: 09/30/2021 ??9:3 6 AM Specimen ID: [id number] Specimen Type: Blood Specimen Collection Start Date: 10/01/19 ??7:38 AM Specimen Received Date: 09/30/2021 ??9:3 6 AM Specimen ID: [id number] Specimen Type: Blood Specimen Collection Start Date: 10/01/19 ??7:38 AM Specimen Received Date: 09/30/2021 ??9:3 6 AM Specimen ID: [id number] Specimen Type: Blood Specimen Collection Start Date: 10/01/19 ??7:38 AM Specimen Received Date: 09/30/2021 ??9:3 6 AM Warren Connor M.D., M.P.H. LAB MICROBIOLOGY - BLO OD ORDERABLES Performing Organization Address City/State/ZIP Code Phon e Number [facility] [address] [place], [place] [address] SUPPORT [facility] [place] [address] Laboratory Medicine and Pathology [address] [place] [address] Dr. CHAPPELL HCV RNA Detect / Quant, Serum (09/30/2021 7:38 AM CDT) [facility] Method Time Signature HCV RNA Undetected Undetected 10/01/2021 [facility] Detect/Quant, IU/mL 12:31 PM S CDT Comment: Result in log IU/mL is Undetected. ----ADDITIONAL INFORMATION---- The quantification range of this assay i s 15 to 100,000,000 IU/mL (1.18 log to 8.00 log IU/mL). Testing was performe d using the john HCV test ([employer] with the john [employer] System. Specimen Anatomical Collection Method Collection Time Receive d Time (Source) Location / / Volume Laterality Blood (Blood, 09/30/2021 7:38 AM 10/01/19 22 Venous) CDT 10:15 AM CDT Warren Connor M.D., M.P.H. LAB MICROBIOLOGY - BLO OD ORDERABLES Performing Organization Address City/[facility]/ZIP [facility] [place] Phon e Number [address] [place] [address] [facility] [place] [address] Laboratory Medicine and Pathology [address] [place] [address] Dr. CHAPPELL HCV Ab Scrn w/Reflex to HCV PCR, Serum (09/30/2021 7:38 AM CDT) athologist Signature HCV Ab Screen, Negative Negative 09/30/2021 [facility] S 2:11 PM CDT Comment: Dlrfyp-ml-ptyxsj ratio is <1.00 . Specimen Anatomical Collection Method Collection Time Receive d Time (Source) Location / / Volume Laterality Blood (Blood, 09/30/2021 7:38 AM 10/01/19 22 Venous) CDT 10:15 AM CDT Warren Connor M.D., M.P.H. LAB MICROBIOLOGY - BLO OD ORDERABLES Performing Organization Address [facility] Code Phon e Number [address] [place] [address] Laboratory Medicine and Pathology [address] [place] [address] Dr. CHAPPELL HBc Total Ab Scrn, S (09/30/2021 7:38 AM CDT) athologist Signature HBc Total Ab Negative Negative 09/30/2021 [facility] Scrn, S 2:11 PM CDT Specimen Anatomical Collection Method Collection Time Receive d Time (Source) Location / / Volume Laterality Blood (Blood, 09/30/2021 7:38 AM 10/01/19 22 Venous) CDT 10:15 AM CDT Warren Connor M.D., M.P.H. LAB MICROBIOLOGY - BLO OD ORDERABLES Performing Organization Address City/[facility]/ZIP Code Phon e Number [address] [place], [address] [place] [address] Laboratory Medicine and Pathology [address] [place] [address] Dr. CHAPPELL HBs Antibody Scrn, S (09/30/2021 7:38 AM CDT) athologist Signature HBs Antibody Positive 09/30/2021 [facility] Scrn, S 2:20 PM CDT Comment: Patient is considered to be immune to in fection with HBV. ----REFERENCE VALUE---- Unvaccinated: Negative Vaccinated: Positive HBs Antibody, Quantitative, S 15.2 mIU/mL 09/30/2021 2:[address] [facility] Comment: ----REFERENCE VALUE---- Unvaccinated: <5.0 Vaccinated: >=12.0 Specimen Anatomical Collection Method Collection Time Receive d Time (Source) Location / / Volume Laterality Blood (Blood, 09/30/2021 7:38 AM 10/01/19 Venous) CDT 10:15 AM CDT Warren Connor M.D., M.P.H. LAB MICROBIOLOGY - BLO OD ORDERABLES Performing Organization Address City/[facility]/ZIP Code Phon e Number [address] [place] [place] [address] Laboratory Medicine and Pathology [address] [place] [address] Dr. CHAPPELL Hepatitis A IgM Ab, Serum (09/30/2021 7:38 AM CDT) athologist Signature Hepatitis A Negative Negative 09/30/2021 [facility] IgM Ab, S 1:17 PM CDT Comment: [...] - BLO OD ORDERABLES Performing Organization Address [facility]/ZIP [facility] [place] Phon e Number [address] [place] [address] [place] [address] Laboratory Medicine and Pathology [address] [place] Hepatitis A IgG Ab, Serum (09/30/2021 7:38 AM CDT) athologist Signature Hepatitis A Negative 09/30/2021 [facility] IgG Ab, S 1:17 PM CDT Comment: [...] - BLO OD ORDERABLES Performing Organization Address [facility] Phon e Number [address] [place] [place] [address] Laboratory Medicine and Pathology [address] [place] [address] Dr. CHAPPELL HIV-1/-2 Ag and Ab Screen, Plasma (09/30/2021 7:38 AM CDT) athologist Signature HIV-1/-2 Ag Negative Negative 09/30/2021 [facility] and Ab Screen, 1:16 PM CDT P [...] - BLO OD ORDERABLES Performing Organization Address [facility] Phon e Number [address] [place], [place] [address] [place], [place] [address] [address] Laboratory Medicine and Pathology [address] [place] [address] Dr. CHAPPELL Phosphorus Inorganic (09/30/2021 7:38 AM [...] City/State/ZIP Code Phon e Number [facility]IES - [address] [place], [place] [address] [facility] [place] [address] [facility] [address] [facility] Lipid Panel (09/30/2021 7:38 AM CDT) athologist [...] M.P.H. LAB BLOOD ADD-ON Performing Organization Address City/[facility] Phon e Number [facility] - [address] [place], [place] [address] [place] [address] (ABNORMAL) GGT (Gamma-Glutamyltransferase) (09/30/2021 7:38 AM CDT) [facility] Method Time Signature Gamma 52 (H) 5 - 36 09/30/2021 DTL Glutamyltransferase U/L 10:47 AM (GGT), S CDT Specimen Anatomical Collection Method Collection Time Receive d Time (Source) Location / / Volume Laterality Blood (Blood, 09/30/2021 7:38 AM 10/01/19 22 8:07 Venous) CDT AM CDT Warren Connor M.D., M.P.H. LAB BLOOD ADD-ON Performing Organization Address [facility] Phon e Number [facility] - [address] (ABNORMAL) Hepatic Function Panel (09/30/2021 7:38 AM CDT) [facility] Method Time Signature Bilirubin, Total, S 12.1 [...] City/State/ZIP Code Phon e Number [facility] - [address] [place], [place] [address] [facility] [place] [address] [facility] [address] [facility] (ABNORMAL) Basic Metabolic Panel (09/30/2021 7:38 AM [...] 09/30/2021 DTL Black/ mL/min/BSA 10:29 AM CDT [place] Comment: ----ADDITIONAL INFORMATION---- Estimated GFR calculated using [...] Blood (Blood, 09/30/2021 7:38 AM 10/01/19 22 8:08 Venous) CDT AM CDT Warren Connor M.D., M.P.H. LAB BLOOD ADD-ON Performing Organization Address City/[facility] Phon e Number [facility] - [address] [place], [place] [address] [facility] [place] [address] [facility] [address] [facility] Rubella Antibodies, IgG (09/30/2021 7:37 AM CDT) athologist Signature Rubella Ab, Positive 09/30/2021 SDS IgG, S 11:25 AM CDT Comment: Results suggest response to immunization or prior exposure to the virus. ----REFERENCE VALUE---- Vaccinated: Positive (>=1.0 AI) Unvaccinated: Negative (<=0.7 AI) Rubella IgG Antibody Index 5.9 09/30/2021 11 :[address] [facility] Specimen Anatomical Collection Method Collection Time Receive d Time (Source) Location / / Volume Laterality Blood (Blood, 09/30/2021 7:37 AM 10/01/19 22 Venous) CDT 10:37 AM CDT Warren Connor M.D., M.P.H. LAB MICROBIOLOGY - BLO OD ORDERABLES Performing Organization Address City/[facility] Phon e Number [facility] [address] [place] [address] SUPPORT [facility] [place] [address] Laboratory Medicine and Pathology [address] [place] Measles (Rubeola) Ab, IgG (09/30/2021 7:37 AM CDT) athologist Signature Measles Positive 09/30/2021 SDSC (Rubeola) Ab, 11:25 AM CDT IgG, S Comment: Results suggest response to immunization or prior exposure to the virus. ----REFERENCE VALUE---- Vaccinated: Positive (>=1.1 AI) Unvaccinated: Negative (<=0.8 AI) Measles IgG Antibody Index >8.0 09/30/2021 11 :[address] [facility] Specimen Anatomical Collection Method Collection Time Receive d Time (Source) Location / / Volume Laterality Blood (Blood, 09/30/2021 7:37 AM 10/01/19 Venous) CDT 10:37 AM CDT Warren Connor M.D., M.P.H. LAB MICROBIOLOGY - BLO OD ORDERABLES Performing Organization Address City/[facility] Phon e Number [facility] [address] [place], [place] [address] [facility] [place] [address] Laboratory Medicine and Pathology [address] [place] [address] Dr. CHAPPELL (ABNORMAL) Zinc (09/30/2021 7:37 AM CDT) athologist Signature Zinc, S 0.39 (L) 0.66 - 1.10 09/30/2021 [facility] mcg/mL 12:56 PM CDT Comment: ----ADDITIONAL INFORMATION---- This test was developed and its performa nce characteristics determined by [facility] in a manner consistent with CLIA requirements. This test has not been cleared or approved by the U.[place]. Meggan d and Drug Administration. Specimen Anatomical Collection Method Collection Time Receive d Time (Source) Location / / Volume Laterality Blood (Blood, 09/30/2021 7:37 AM 10/01/19 Venous) CDT 10:12 AM CDT Warren Connor M.D., M.P.H. LAB BLOOD NON ADD-ON Performing Organization Address City/[facility] Code Phon e Number [facility] [address] [place], [place] [address] [facility] [place] [address] Laboratory Medicine and Pathology [address] [place] [address] Dr. CHAPPELL Toxoplasma gondii Antibody, IgG (09/30/2021 7:37 AM CDT) Analysis Performed At Patho logist Time Signature Toxoplasma Ab, Negative Negative 09/30/2021 SDSC IgG, S 11:25 AM CDT Toxoplasma IgG <3 IU/mL 09/30/2021 [facility] Value 11:25 AM CDT Comment: ----REFERENCE VALUE---- <=9 IU/mL (Negative) 10-11 IU/mL (Equivocal) >=12 IU/mL (Positive) Specimen Anatomical Collection Method Collection Time Receive d Time (Source) Location / / Volume Laterality Blood (Blood, 09/30/2021 7:37 AM 10/01/19 Venous) CDT 10:37 AM CDT Warren Connor M.D., M.P.H. LAB MICROBIOLOGY - BLO OD ORDERABLES Performing Organization Address [facility] Phon e Number [facility] [address] [place], [place] [address] [facility] [place] [address] Laboratory Medicine and Pathology [address] [place] [address] Dr. CHAPPELL Mumps Ab, IgG (09/30/2021 7:37 AM CDT) athologist Signature Mumps Ab, IgG, Positive 09/30/2021 [facility] S 11:25 AM CDT Comment: Results suggest response to immunization or prior exposure to the virus. ----REFERENCE VALUE---- Vaccinated: Positive (>=1.1 AI) Unvaccinated: Negative (<=0.8 AI) Mumps IgG Antibody Index 6.1 09/30/2021 11:[address] [facility] Specimen Anatomical Collection Method Collection Time Receive d Time (Source) Location / / Volume Laterality Blood (Blood, 09/30/2021 7:37 AM 10/01/19 22 Venous) CDT 10:37 AM CDT Warren Connor M.D., M.P.H. LAB MICROBIOLOGY - BLO OD ORDERABLES Performing Organization Address City/[facility] Phon e Number [facility] [address] [place], [place] [address] [facility] [place] [address] Laboratory Medicine and Pathology [address] [place] [address] Dr. CHAPPELL Syphilis IgG w/ Reflex, EIA, S (09/30/2021 7:37 AM CDT) Patholo gist Method Time Signature Syphilis IgG Nonreactive Nonreactive 10/01/2021 [facility] w/ Reflex, 3:00 PM CDT EIA, S Comment: No serologic evidence of infection with T. pallidum (syphilis). ??Repeat testing may be cons idered in patients with suspected acute or primary syphilis in 2-4 weeks. For additional information on interpreta tion of the syphilis reverse algorithm and resul ts, see: [email or web address] Specimen Anatomical Collection Method Collection Time Receive d Time (Source) Location / / Volume Laterality Blood (Blood, 09/30/2021 7:37 AM 10/01/19 22 Venous) CDT 10:12 AM CDT Warren Connor M.D., M.P.H. LAB MICROBIOLOGY - BLO OD ORDERABLES Performing Organization Address City/State/ZIP Code Phon e Number [facility] [address] [place], [place] [address] [place] [address] [place] [address] Laboratory Medicine and Pathology [address] CHAP[place] EBV Ab Profile (09/30/2021 7:37 AM CDT) [facility] Method Time Signature EBV VCA IgM Ab, S Negative Negative 09/30/2021 [facility] 11:25 AM CDT EBV VCA IgG Ab, S Positive Negative 09/30/2021 [facility] 11:25 AM CDT EBNA Ab, S Positive Negative 09/30/2021 [facility] 11:25 AM CDT Interpretation SEE COMMENT 09/30/2021 [facility] 11:25 AM CDT Comment: Results suggest past [...] - BLO OD ORDERABLES Performing Organization Address City/[facility] Phon e Number [address] [place] [address] 05 [place] [address] Laboratory Medicine and Pathology [address] [place] [address] Dr. CHAPPELL Varicella-Zoster Ab, IgM and IgG (09/30/2021 7:37 AM CDT) athologist Signature Varicella-Zost Positive 09/30/2021 [facility] er Ab, IgG, S 11:25 AM CDT Comment: Results suggest response to immunization or prior exposure to the virus. ----REFERENCE VALUE---- Vaccinated: Positive (>=1.1 AI) Unvaccinated: Negative (<=0.8 AI) Varicella IgG Antibody Index 3.9 09/30/2021 11:[address] [facility] Varicella-Zoster Ab, IgM, S Negative Negative 10/01/2021 2 :[address] [facility] Specimen Anatomical Collection Method Collection Time Receive d Time (Source) Location / / Volume Laterality Blood (Blood, 09/30/2021 7:37 AM 10/01/19 22 Venous) CDT 10:37 AM CDT Warren Connro M.D., M.P.H. LAB MICROBIOLOGY - BLO OD ORDERABLES Performing Organization Address [facility] Phon e Number [address] [place] [address] 05 [facility] [place] [address] Laboratory Medicine and Pathology [address] [place] [address] Dr. CHAPPELL HSV Types 1 and 2 [...] - BLO OD ORDERABLES Performing Organization Address City/[facility] Phon e Number [facility] [address] [place] [address] 05 [facility] [place] [address] Laboratory Medicine and Pathology [address] [place] [address] Dr. CHAPPELL Cytomegalovirus Ab, IgM and IgG (09/30/2021 7:37 AM CDT) [facility] Method Time Signature Cytomegalovirus Ab, Negative Negative 09/30/2021 [facility] IgM, S 11:25 AM CDT Cytomegalovirus Ab, Negative Negative 09/30/2021 [facility] IgG, S 11:25 AM CDT Specimen Anatomical Collection Method Collection Time Receive d Time (Source) Location / / Volume Laterality Blood (Blood, 09/30/2021 7:37 AM 10/01/19 Venous) CDT 10:37 AM CDT Warren Connor M.D., M.P.H. LAB MICROBIOLOGY - BLO OD ORDERABLES Performing Organization Address [facility] Phon e Number [address] [place] [address] 05 [facility] [place] [address] Laboratory Medicine and Pathology [address] [place] [address] Dr. CHAPPELL (ABNORMAL) Prothrombin Time (PT) (09/30/2021 7:37 AM CDT) [facility] Method Time Signature Prothrombin 28.8 (H) 9.4 [...] Blood (Blood, 09/30/2021 7:37 AM 10/01/19 22 7:54 Venous) CDT AM CDT Warren Connor M.D., M.P.H. LAB BLOOD ADD-ON Performing Organization Address City/State/ZIP Code Phon e Number [facility] - [address] [place], [place] [address] [facility] [place] [place] [address] Laboratories-[facility] [address] documented in this [...] (HCC) documented in this encounter Care Teams Associate Professor Of Radiology Relationship Specialty Start Date End Date Elsewhere, Pcp PCP - General Family Medicine 03/10/20 11/30/21 [facility] [place] [facility] 08/25/21 Ervin Schroeder MD Referring Provider Family Medicine 03/24/[address] [place] [address] documented as of this encounter
--- OUTSIDE RECORDS SUMMARY | 2022-01-31 04:31 | XMS_ITS | Encounter Summary ---
:1990 Author Organization [facility] Address [address] [place] [address] Care Team Providers Name Role Phone Elsewhere, Pcp Primary Care Provider Unavailable Encounter Details Date Type Department Care Team Description 08/26/2021 Clinical Communication Department of Felicita Spicer Gastroenterology in [place] [place], [place] [phone] [place] [address] ([facility]) [place] [address] Social History Tobacco Use Types Packs/Day [...] do you attend buddhism or Never 2021 gnosticism services? 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 - 08/27/2021 1:24 PM CDT Wool Shearer called patient and left a detailed message [...] out to schedule the INR at a [facility] lab or she can stopin tomorrow at any [facility] lab to have this drawn. Provided direct [...] CDT Patient in process of discharge from [facility] (see note below). She did receive vitamin [...] and request this be sent to the [facility] in [place]. Upon chart review of past documentation the following was noted by Kerry Naranjo. I have ordered Vitamin K 5 mg X 7 days, to take orally. Then follow up by repeat PT/INR??on the 8th day. Please call pt and ask to get the lab at [facility] in [place]; this allows access to results. Past attempts [...] the patient is currently in patient at [facility] and likely would not be able to start the Rx tonight anyway. Please advise how patient should take vitamin K as she is scheduled for EGD on 09/01/21. A new Rx would need to be sent to the [facility] in [place] as the song writer checked with the pharmacy and the they do not have the vitamin K Rx on file. documented in this encounter Plan of Treatment Upcoming Encounters Date Type Specialty Care Team Description Office Visit Community Internal [facility], 2 Medicine Vernell Perez [address] [facility] [place] [address] Appointment Radiology Matthew Jerome 2 Y, Tyrell, MJules [address] [place] [phone] Hospital Gastroenterology and Matthew Jerome 2 Encounter Hepatology Vik RodriguezBLilian Bedolla [address] [place] [phone] Surgery Gastroenterology and Queenie, Matthew ESOPHAG OGASTRODUODENOSCOPY 2 Hepatology Joshua RodriguezBSumaBLilian Bedolla [address] [place] [phone] Telemedicine Transplant 2 Lab Laboratory Medicine Karin, 2 Adeline Gannon M.D., Ph.D. [address] [place] [phone] Lab Laboratory Medicine Karin, 2 Adeline Gannon M.D., Ph.D. [address] [place] [phone] Office Visit Transplant Karin, 2 Adeline Gannon M.D., Ph.D. [address] [place] [phone] Appointment Radiology Matthew Jerome 2 Joshua RodriguezB.B.SLilian Moise [address] [place] [phone] Appointment Gastroenterology and Adrianne, 2 Hepatology Yue Burciaga M.D. [address] [place] [phone] Office Visit Gastroenterology and Queenie Matthew 2 Hepatology Joshua RodriguezB.B.SLilian Moise [address] [place] [address], [place] [phone] Appointment Radiology Matthew Jerome 2 YTyrell, Lilian [address] [place] [address] Scheduled Procedures Name Priority Associated Diagnoses Date/Time [...] documented as of this encounter Care Teams Compress Engineer Relationship Specialty Start Date End Date Elsewhere, Pcp PCP - General Family Medicine 03/10/20 11/30/21 [facility] [place] [facility] 08/25/21 Ervin Schroeder MD Referring Provider Family Medicine 03/24/[address] [place] [address] documented as of this encounter
--- OUTSIDE RECORDS SUMMARY | 2022-01-31 04:31 | XMS_ITS | Encounter Summary ---
:1990 Author Organization [facility] Address [address] [place] [address] Care Team Providers Name Role Phone Elsewhere, Pcp Primary Care Provider Unavailable Reason for Visit Reason Comments Leg Swelling Encounter Details Date Type Department Care Team Description 08/01/2021 Nurse Triage Department of [facility] Faviola Leg Swelling Medicine, Purvis S, [facility], [place] [address] [place] [address] [place] [phone] [place] [address] [phone] Social History Tobacco Use Types Packs/Day Years [...] do you attend confucianism or Never 2021 sikhism services? 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 Photos were sent to her expeller operator. History of Alcoholic Cirrhosis, Live failure, chronic [...] or worsening Protocols used: LEG SWELLING AND BTDIL-MKTOF-II documented in this encounter Plan of Treatment Upcoming Encounters Date Type Specialty Care Team Description Office Visit Community Internal [facility], 2 Medicine Vernell Perez [address] [place] [phone] Appointment Radiology [facility], Matthew 2 YTyrell, Lilian [address] [place] [phone] [facility] Gastroenterology and Mousa, Matthew 2 Encounter Hepatology Tyrell Rodriguez M.D. [address] [place] [phone] Surgery Gastroenterology and Mousa, Matthew ESOPHAG OGASTRODUODENOSCOPY 2 Hepatology Tyrell Rodriguez M.D. [address] [place] [phone] Telemedicine Transplant 2 Lab Laboratory Medicine Karin, 2 Adeline Gannon M.D., Ph.D. [address] [place] [phone] Lab Laboratory Medicine Olinda Frazier M.D., Ph.D. [address] [place] [phone] Office Visit Transplant Olinda Frazier M.D., Ph.D. [address] [place] [phone] Appointment Radiology Matthew Jerome 2 YJoshuaBSumaBGraeme, Lilian [address] [place] [phone] Appointment Gastroenterology and Adrianne 2 Hepatology Yue Burciaga M.D. [address] [place] [phone] Office Visit Gastroenterology and Matthew Jerome 2 Hepatology Joshua RodriguezBSumaBSumaSSuma, Lilian [address] [place] [phone] Appointment Radiology Matthew Jerome 2 YJoshuaB.BGraeme, Lilian [address] [place] [phone] Scheduled Procedures Name Priority Associated Diagnoses Date/Time ESOPHAGOGASTRODUODENOSCOPY Cirrhosis Alc oholic (HCC) 02/10/2022 8:45 AM CDT Hypertension Portal (HCC) documented as of this encounter Visit Diagnoses Not on filedocumented in this encounter Care Teams Plant General Manager Relationship Specialty Start Date End Date Elsewhere, Pcp PCP - General Family Medicine 03/10/20 11/30/21 Ervin Schroeder MD Referring Provider Family Medicine 11/22/[address] [place] [address] documented as of this encounter
--- OUTSIDE RECORDS SUMMARY | 2022-01-31 04:31 | XMS_ITS | Encounter Summary ---
:1990 Author Organization [facility] Address [address] [place] [address] Care Team Providers Name Role Phone Elsewhere, Pcp Primary Care Provider Unavailable Reason for Referral Appointment Request (Routine) - Closed Specialty Diagnoses / Procedures Referred By Contact Refer red To Contact Diagnoses Cirrhosis Alcoholic (HCC) Ascites Anemia Macrocytic Thrombocytopenia (HCC) Deficiency Coagulation Acquired (HCC) Kerry Naranjo APRN, Procedures Prothrombin Time (PT) M.S.N., R.N. [address] [place] [phone] Referral ID Status Reason Start Date Expiration Date Visits Requ ested Visits Authorized [id number] Closed 07/07/2021 07/07/2022 1 Reason for Visit Appointment Request (Routine) - Closed Specialty Diagnoses / Procedures Referred By Contact Refer red To Contact Diagnoses Cirrhosis Alcoholic (HCC) Ascites Anemia Macrocytic Thrombocytopenia (HCC) Deficiency Coagulation Acquired (HCC) Jose A, Kerry S, MEDICARE INSURANCE SPECIALIST, Procedures Prothrombin Time (PT) JoshuaSGabby, R.N. [address] [place] [phone] Referral ID Status Reason Start Date Expiration Date Visits Requ ested Visits Authorized [id number] Closed 07/07/2021 07/07/2022 1 Encounter Details Date Type Department Care Team Description 08/28/2021 Hospital Encounter Department of Kerry Naranjoos is Alcoholic ([facility]); Laboratory Medicine S, MEDICARE INSURANCE SPECIALIST, Ascites; in Destiny Mejía, R.N. Anemia Macrocytic; [place] 1025 [facility] Thrombocytopenia (HCC); [address] [place], [place] Deficiency Coagulation Acqui red ([facility]) [place] [phone] Social History Tobacco Use Types Packs/Day Years [...] or relatives? How often do you attend latter day or Never 2021 denominational services? 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 Medications at [...] Care Team Description Office Visit [facility], 2 Medicine Vernell Perez [address] [place] [phone] Appointment Radiology Matthew Jerome 2 Y, M.B.B.S., MJules [address] [place] [phone] Hospital Gastroenterology and Matthew Jerome 2 Encounter Hepatology Y M.B.B.SSuma, MJules [address] [place] [phone] Surgery Gastroenterology and Matthew Jerome ESOPHAG OGASTRODUODENOSCOPY 2 Hepatology Y M.B.B.S., Lilian [address] [place] [phone] Telemedicine Transplant 2 Lab Laboratory Medicine Karin, Olinda Gannon M.D., Ph.D. [address] [place] [phone] Lab Laboratory Medicine Karin, 2 Adeline Gannon M.D., Ph.D. [address] [place] [address] [phone] Office Visit Transplant Karin, Olinda Gannon M.D., Ph.D. [address] [place] [phone] Appointment Radiology Matthew Jerome 2 Y, M.B.B.S., MJules [address] [place] [phone] Appointment Gastroenterology and Doll, 2 Hepatology Yue Burciaga M.D. [address] [place] [phone] Office Visit Gastroenterology and Matthew Jerome 2 Hepatology Tyrell Rodriguez M.D. [address] [place] [phone] Appointment Radiology LuisMatthew abdul 2 YTyrell M.D. [address] [place] [phone] Scheduled Procedures Name Priority Associated [...] Prothrombin Time (PT) (08/28/2021 5:01 PM CDT) [facility] Method Time Signature Prothrombin 25.9 (H) [...] Organization Address City/State/ZIP Code Phon e Number [facility]- [address] [place] [address] [place] [address] System in [place] [address] documented in this encounter Visit Diagnoses Diagnosis Cirrhosis Alcoholic (HCC) Ascites Anemia Macrocytic Thrombocytopenia (HCC) Deficiency Coagulation Acquired (HCC) Cirrhosis Alcoholic (HCC) Hypertension Portal (HCC) documented in this encounter Care Teams Motor Patrol Operator Relationship Specialty Start Date End Date Elsewhere, Pcp PCP - General Family Medicine 03/10/20 11/30/21 [facility] [place] [facility] 08/25/21 Ervin Schroeder MD Referring Provider Family Medicine 03/24/211979 [address] [place] [address] [phone] documented as of this encounter
--- OUTSIDE RECORDS SUMMARY | 2022-01-31 04:32 | XMS_ITS | Encounter Summary ---
:1990 Author Organization [facility] Address [address] [place] [address] Care Team Providers Name Role Phone Elsewhere, Pcp Primary Care Provider Unavailable Encounter Details Date Type Department Care Team Description 07/08/2021 Clinical Communication Department of Kerry Naranjo Gastroenterology in [place], [place] M.S.N., R.N. 1025 [facility] 1025 [place] [address] [place], [place] [phone] Social History Tobacco Use Types Packs/Day [...] do you attend mormon or Never 2021 mandaen services? 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 [address] [place] [phone] Surgery Gastroenterology and Matthew Jerome ESOPHAG OGASTRODUODENOSCOPY 2 Hepatology Tyrell Rodriguez, Lilian [address] [place] [phone] Telemedicine Transplant 2 Lab Laboratory Medicine Olinda Frazier M.D., Ph.D. [address] [place] [phone] Lab Laboratory Medicine Olinda Frazier M.D., Ph.D. [address] [place] [phone] Office Visit Transplant Karin, Olinda Gannon M.D., Ph.D. [address] [place] [phone] Appointment Radiology Matthew Jerome 2 YJoshuaBSumaB.SSuma, Lilian [address] [place] [phone] Appointment Gastroenterology and Adrianne, 2 Hepatology Yue Burciaga M.D. [address] [place] [phone] Office Visit Gastroenterology and Matthew Jerome 2 Hepatology Joshua RodriguezB.BSumaSLilian Moise [address] [place] [phone] Appointment Radiology Matthew Jerome 2 Y M.B.B.SLilian Moise [address] [place] [phone] Scheduled Procedures Name Priority Associated Diagnoses Date/Time ESOPHAGOGASTRODUODENOSCOPY Cirrhosis Alc oholic (HCC) 02/10/2022 8:45 AM CDT Hypertension Portal (HCC) documented as of this encounter Visit Diagnoses Not on filedocumented in this encounter Care Teams Spaghetti Machine Operator Relationship Specialty Start Date End Date Elsewhere, Pcp PCP - General Family Medicine 03/10/20 11/30/21 Ervin Schroeder MD Referring Provider Family Medicine 03/24/[address] [place] [address] documented as of this encounter
--- OUTSIDE RECORDS SUMMARY | 2022-01-31 04:32 | XMS_ITS | Encounter Summary ---
:1990 Author Organization [facility] Address [address] [place] [address] Care Team Providers Name Role Phone Elsewhere, Pcp Primary Care Provider Unavailable Encounter Details Date Type Department Care Team Description 07/15/2021 Clinical Communication Department of Felicita Spicer Gastroenterology in [place] [place], [place] [phone] [place] [address] ([facility]) [place] [phone] Social History Tobacco Use Types Packs/Day [...] do you attend baptism or Never 2021 latter-day services? 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 Assurance Officer informed her that we were aware of the labs from outside facilities and that account underwriter had asked Kerry to review these outside labs last week and had not heard back regarding any recommendations. Informed her I would follow up with Kerry and get back to her. Assurance Officer discussed patient with Kerry Naranjo NP. Since patient is reported feeling more tired and weak lately the provider would like to repeat some labs. Provider requests patient has these completed at [facility] so that we are able to [...] best that they are done at a [facility] so that Kerry can be alerted [...] shedid not received a blood transfusion at [facility]. Informed her that once the lab results were back Kerry would be able to best make a plan of care for her. Informed her she should keep her appointment with Kerry on Friday 07/21. documented in this encounter Plan of Treatment Upcoming Encounters Date Type Specialty Care Team Description Office Visit Community Internal [place], 2 Medicine Vernell Perez [address] [place] [phone] Appointment Radiology [facility], Matthew 2 Tyrell Rodriguez, Lilian [address] [place] [phone] [facility] Gastroenterology and [place], Matthew 2 Encounter Hepatology Tyrell Rodriguez M.D. [address] [place] [phone] Surgery Gastroenterology and [place], Matthew ESOPHAG OGASTRODUODENOSCOPY 2 Hepatology Vik RodriguezBGraeme, Lilian [address] [place] [phone] Telemedicine Transplant 2 Lab Laboratory Medicine Karin, 2 Adeline Gannon M.D., Ph.D. [address] [place] [phone] Lab Laboratory Medicine Olinda Frazier M.D., Ph.D. [address] [place] [phone] Office Visit Transplant Karin, Olinda Gannon M.D., Ph.D. [address] [place] [phone] Appointment Radiology Matthew Jerome 2 YTyrell, Lilian [address] [place] [phone] Appointment Gastroenterology and Adrianne 2 Hepatology Yue Burciaga M.D. [address] [place] [phone] Office Visit Gastroenterology and Matthew Jerome 2 Hepatology Joshua RodriguezBSumaBSumaSSuma, Lilian [address] [place] [phone] Appointment Radiology Matthew Jerome 2 YJoshuaBSumaBGraeme, Lilian [address] [place] [phone] Scheduled Procedures Name Priority Associated Diagnoses Date/Time ESOPHAGOGASTRODUODENOSCOPY Cirrhosis Alc oholic (HCC) 02/10/2022 8:45 AM CDT Hypertension Portal (HCC) documented as of this encounter Results (ABNORMAL) Hepatic Function Panel (07/15/2021 10:49 AM CDT) [facility] Method Time Signature Bilirubin, Total, P 7.2 [...] Organization Address City/State/ZIP Code Phon e Number [facility]- [address] [place] [address] [place] [address] System in [place] [facility] Basic Metabolic Panel (07/15/2021 10:49 AM CDT) [...] CDT eGFR-Black/Afric >90 >=60 07/15/2021 [place] an [place] mL/min/BSA 1:52 PM CDT Comment: ----ADDITIONAL INFORMATION---- [...] 07/15/2021 Venous) AM CDT 12:57 PM CDT Elizabeth Newsome APRN.S.N., R.N. LAB BLOOD ADD-ON Performing Organization Address City/State/ZIP Code Phon e Number [facility]- [address] [place] [address] [place] [address] System in [place] [address] [place] [address] (ABNORMAL) CBC with Differential, Blood (07/15/2021 10:49 AM CDT) [facility] Method Time Signature Hemoglobin 8.2 [...] 07/15/2021 Venous) AM CDT 10:49 AM CDT Joshua Newsome APRNSSumaN., R.N. LAB BLOOD ADD-ON Performing Organization Address City/State/ZIP Code Phon e Number [place] [address] [place], [place] [id number] [place] [address] LAB [address] [place] [address] [address] documented in this encounter Visit Diagnoses Diagnosis Cirrhosis Alcoholic (HCC) - Primary Cirrhosis Alcoholic (HCC) Hypertension Portal (HCC) documented in this encounter Additional Health Concerns Infection Onset Date Last Indicated Resolved Time COVID19 Pending 07/25/2021 07/25/2021 07/25/2021 10:07 PM CDT documented as of this encounter Care Teams Printed Circuit Boards Plasma Etcher Relationship Specialty Start Date End Date Elsewhere, Pcp PCP - General Family Medicine 03/10/20 11/30/21 Ervin Schroeder MD Referring Provider Family Medicine 03/24/21 [address] [place] [address] documented as of this encounter
--- OUTSIDE RECORDS SUMMARY | 2022-01-31 04:32 | XMS_ITS | Encounter Summary ---
:1990 Author Organization [facility] Address [address] [place] [address] Care Team Providers Name Role Phone Elsewhere, Pcp Primary Care Provider Unavailable Encounter Details Date Type Department Care Team Description 07/25/2021 Clinical Communication Department of Ines Warren, Gastroenterology in [address] [place] [phone] Social History Tobacco Use Types Packs/Day Years [...] do you attend taoism or Never 2021 tenriism services? 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 - 07/25/2021 2:57 PM CDT Patient called back again. Patient states that she is going to call 911 for an ambulance. Patient states that her abdominal pain is bad and she is becoming increasing confused. Patient [facility] to go to[facility] for evaluation. Told patient to request [place] Location. Patient is home alone as her mother and fiance are working late [facility]. Telephone Encounter - Kerry Naranjo APRN C.N.PSuma, M.S.N. - 07/25/2021 2:41 PM CDT FYI In case you get a call on this [facility] clinic cirrhotic. Payne Telephone Encounter - Kerry [...] [facility], 2 Medicine Vernell Perez [address] [place] [phone] Appointment Radiology [facility] 2 YTyrell M.D. [address] [place] [phone] [facility] Gastroenterology and [facility] 2 Encounter Hepatology Tyrell Rodriguez M.D. [address] [place] [address] [phone] Surgery Gastroenterology and [facility] ESOPHAG OGASTRODUODENOSCOPY 2 Hepatology Tyrell Rodriguez, Lilian [address] [place] [phone] Telemedicine Transplant 2 Lab Laboratory Medicine Karin, Olinda Gannon M.D., Ph.D. [address] [place] [phone] Lab Laboratory Medicine Olinda Frazier M.D., Ph.D. [address] [place] [phone] Office Visit Transplant Karin, 2 Adeline Gannon M.D., Ph.D. [address] [place] [phone] Appointment Radiology Matthew Jerome 2 Y, M.B.B.SSuma, MJules [address] [place] [phone] Appointment Gastroenterology and Adrianne 2 Hepatology Yue Burciaga M.D. [address] [place] [phone] Office Visit Gastroenterology and Matthew Jerome 2 Hepatology Jennifer M.B.B.SSuma, Lilian [address] [place] [address] [phone] Appointment Radiology Matthew Jerome 2 Y M.B.B.SSuma, MJules [address] [place] [address] [phone] Scheduled Procedures Name Priority Associated Diagnoses Date/Time ESOPHAGOGASTRODUODENOSCOPY Cirrhosis Alc oholic (HCC) 02/10/2022 8:45 AM CDT Hypertension Portal (HCC) documented as of this encounter Visit Diagnoses Not on filedocumented in this encounter Care Teams Communications Administrator Relationship Specialty Start Date End Date Elsewhere, Pcp PCP - General Family Medicine 03/10/20 11/30/21 Ervin Schroeder MD Referring Provider Family Medicine 03/24/[address] [place] [phone] documented as of this encounter
--- OUTSIDE RECORDS SUMMARY | 2022-01-31 04:32 | XMS_ITS | Encounter Summary ---
:1990 Author Organization [facility] Address [address] [place] [address] Care Team Providers Name Role Phone Elsewhere, Pcp Primary Care Provider Unavailable Encounter Details Date Type Department Care Team Description 07/15/2021 Hospital Encounter Department of Kerry Naranjo is Alcoholic Laboratory Medicine S, BOMB SQUAD COMMANDER, (HCC) [place], R.N[address] [place] [phone] Social History Tobacco Use Types Packs/Day [...] do you attend jew or Never 2021 bahai services? 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 ergocalciferol (DRISDOL) Take 50,000 Units 0 03/0501/14/2022 [...] Care Team Description Office Visit [facility], 2 Medicine Vernell Perez [address] [facility] [place] [phone] Appointment Radiology Matthew Jerome 2 Y, M.B.B.Kath, Lilian [address] [place] [phone] Hospital Gastroenterology and [facility] 2 Encounter Hepatology Y MSumaBSumaBGraeme, Lilian [address] [place] [phone] Surgery Gastroenterology and [facility] ESOPHAG OGASTRODUODENOSCOPY 2 Hepatology Y M.B.BGraeme, Lilian [address] [place] [phone] Telemedicine Transplant 2 Lab Laboratory Medicine Karin, 2 Adeline Gannon M.D., Ph.D. [address] [place] [phone] Lab Laboratory Medicine Karin, 2 Adeline Gannon M.D., Ph.D. [address] [place] [phone] Office Visit Transplant Karin, Olinda Gannon M.D., Ph.D. [address] [place] [phone] Appointment Radiology Matthew Jerome 2 Y, M.B.B.SSuma, Lilian [address] [place] [phone] Appointment Gastroenterology and Adrianne, 2 Hepatology Yue Burciaga M.D. [address] [place] [phone] Office Visit Gastroenterology and Matthew Jerome 2 Hepatology Tyrell Rodriguez M.D. [address] [place] [phone] Appointment Radiology LuisMatthew abdul 2 Tyrell Rodriguez M.D. [address] [place] [phone] Scheduled Procedures Name Priority Associated Diagnoses [...] Results (ABNORMAL) Ammonia (07/15/2021 10:49 AM CDT) P athologist Signature Ammonia, P 103 (H) <=30 07/16/2021 DTL mcmol/L 10:28 AM CDT Specimen Anatomical Collection Method Collection Time Receive d Time (Source) Location / / Volume Laterality Blood 07/15/2021 10:49 07/16/2021 8:42 AM CDT AM CDT Joshua Newsome APRNSEric., R.N. LAB BLOOD NON ADD-ON Performing Organization Address City/State/ZIP Code Phon e Number [facility] - [address] [place], [place] [address] [facility] [place] [address] [facility] 200 [facility] (ABNORMAL) Hepatic Function Panel (07/15/2021 10:49 AM [...] 07/15/2021 Venous) AM CDT 12:57 PM CDT Joshua Newsome APRNSSumaN., R.N. LAB BLOOD ADD-ON Performing Organization Address City/State/ZIP Code Phon e Number [facility]- [address] [place] [address] [place] [address] System in [place] [address] Basic Metabolic Panel (07/15/2021 10:49 AM CDT) [...] CDT eGFR-Black/Afric >90 >=60 07/15/2021 OWAT an Uzbek mL/min/BSA 1:52 PM CDT Comment: ----ADDITIONAL INFORMATION---- [...] Organization Address City/State/ZIP Code Phon e Number [facility]- [address] [place] [address] [place] [address] System in [place] [address] (ABNORMAL) CBC with Differential, Blood (07/15/2021 10:49 AM CDT) [facility] gist Method Time Signature Hemoglobin 8.2 (L) 11.6 [...] 07/15/2021 Venous) AM CDT 10:49 AM CDT Kerry Naranjo APRN M.S.N., R.N. LAB BLOOD ADD-ON Performing Organization Address City/State/ZIP Code Phon e Number [facility]- [address] [place] [address] [facility] [address] [place] [address] [address] documented in this encounter Visit Diagnoses Diagnosis Cirrhosis Alcoholic (HCC) Cirrhosis Alcoholic (HCC) Hypertension Portal (HCC) documented in this encounter Care Teams Liner Replacer Relationship Specialty Start Date End Date Elsewhere, Pcp PCP - General Family Medicine 03/10/20 11/30/21 Ervin Schroeder MD Referring Provider Family Medicine 03/24/21 [address] [place] [address] documented as of this encounter
--- OUTSIDE RECORDS SUMMARY | 2022-01-31 04:32 | XMS_ITS | Encounter Summary ---
:1990 Author Organization [facility] Address [address] [place] [address] Care Team Providers Name Role Phone Elsewhere, Pcp Primary Care Provider Unavailable Reason for Visit Reason Comments Epistaxis (Nose Bleed) Encounter Details Date Type Department Care Team Description 07/25/2021 Nurse Triage Department of oJshua Resendiz istaxis (Nose Medicine, [facility], RSumaNSuma Bleed) [facility], in [facility] [place] [address] [place] [phone] Social History Tobacco Use Types Packs/Day Years [...] do you attend gnosticist or Never 2021 latter-day services? 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 Call your doctor (or DRAFTING TEACHER/PA) when the office opens and make an [...] [2] direct pressure applied correctly Protocols used: [id number] documented in this encounter Plan of Treatment Upcoming Encounters Date Type Specialty Care Team Description Office Visit [facility], 2 Medicine Vernell Perez [address] [place] [phone] Appointment Radiology Matthew Jerome 2 YTyrell, Lilian [address] [place] [phone] Hospital Gastroenterology and Matthew Jerome 2 Encounter Hepatology Tryell Rodriguez M.D. [address] [place] [phone] Surgery Gastroenterology and Matthew Jerome ESOPHAG OGASTRODUODENOSCOPY 2 Hepatology Tyrell Rodriguez, Lilian [address] [place] [phone] Telemedicine Transplant 2 Lab Laboratory Medicine Karin Olinda Gannon M.D., Ph.D. [address] [place] [phone] Lab Laboratory Medicine SaraemmaalexaOlinda Adeline Gannon M.D., Ph.D. [address] [place] [phone] Office Visit Transplant Karin Olinda Gannon M.D., Ph.D. [address] [place] [phone] Appointment Radiology Matthew Jerome 2 Y M.B.B.SSuma, Lilian [address] [place] [address] [phone] Appointment Gastroenterology and Adrianne, 2 Hepatology Yue Burciaga M.D. [address] [place] [phone] Office Visit Gastroenterology and Matthew Jerome 2 Hepatology YElizabeth.B.B.SSuma, Lilian [address] [place] [phone] Appointment Radiology Matthew Jerome 2 Y M.B.B.SSuma, Lilian [address] [place] [phone] Scheduled Procedures Name Priority Associated Diagnoses Date/Time ESOPHAGOGASTRODUODENOSCOPY Cirrhosis Alc oholic (HCC) 02/10/2022 8:45 AM CDT Hypertension Portal (HCC) documented as of this encounter Visit Diagnoses Not on filedocumented in this encounter Care Teams Oil Lease Broker Relationship Specialty Start Date End Date Elsewhere, Pcp PCP - General Family Medicine 03/10/20 11/30/21 Ervin Schroeder MD Referring Provider Family Medicine 03/24/[address] [place] [phone] documented as of this encounter
--- OUTSIDE RECORDS SUMMARY | 2022-01-31 04:32 | XMS_ITS | Encounter Summary ---
:1990 Author Organization [facility] Address [address] [place] [address] Care Team Providers Name Role Phone Elsewhere, Pcp Primary Care Provider Unavailable Reason for Visit Reason Comments Vomiting Pt reports hx of liver cirrh osis, states discussed symptoms of vomiting, inability to tolerate home m edications with specialty team and referred to ED for further evaluation. Encounter Details Date Type Department Care Team Description 07/25/2021 [facility] [address] [place] [phone] Abdominal Pain (Primary Dx); 07/26/2021 [facility] Les Jj D.O. [address] [place] [phone] Nausea And Vomiting Emergency Department [address] [place] [address] Social History Tobacco Use Types [...] do you attend latter-day or Never 2021 hoahaoism services? 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 Godwin. Disposition pending transfer to [place] for abdominal pain, generalized weakness, nausea/vomiting,underlying liver [...] and Family: Twice a week ??? Attends Judaism Services: Never ??? Active Member of [employer]s [...] PLAN: ED COURSE: ED Course as of 03155Jul 25, 2021 2101 Patient history of alcoholic liver cirrhosis, has [...] Care Team Description Office Visit [facility], 2 Medicine Vernell Perez [address] [place] [address] Appointment Radiology Matthew Jerome 2 Tyrell Rodriguez, Lilian [address] [place] [phone] Hospital Gastroenterology and Matthew Jerome 2 Encounter Hepatology Tyrell Rodriguez M.D. [address] [place] [phone] Surgery Gastroenterology and Matthew Jerome ESOPHAG OGASTRODUODENOSCOPY 2 Hepatology Joshua RodriguezBSumaBGraeme, Lilian [address] [place] [phone] Telemedicine Transplant 2 Lab Laboratory Medicine Karin, 2 Adeline Gannon M.D., Ph.D. [address] [place] [phone] Lab Laboratory Medicine Karin, 2 Adeline Gannon M.D., Ph.D. [address] [place] [phone] Office Visit Transplant Karin, 2 Adeline Gannon M.D., Ph.D. [address] [place] [phone] Appointment Radiology Matthew Jerome 2, M.BSumaBGraeme, Lilian [address] [place] [phone] Appointment Gastroenterology and [place]ne, 2 Hepatology Yue Burciaga M.D. [address] [place] [phone] Office Visit Gastroenterology and Matthew Jerome 2 Hepatology Joshua RodriguezB.B.Lilian [facility] [place] [phone] Appointment Radiology Matthew Jerome 2 Jennifer Lilian Santillan [address] [place] [phone] Scheduled Procedures Name Priority Associated Diagnoses Date/Time [...] PCR Rapid, V (07/25/2021 9:50 PM CDT) [facility] Method Time Signature SARS CoV-2, Undetected Undetected 07/25/2021 MKTO PCR, Rapid, V 10:32 PM CDT Comment: ----ADDITIONAL INFORMATION---- This RT-PCR test was performed using the Daniel SARS-CoV-2 and Influenza A/B Reagent assay from [employer], which has received Emergency Use Authori zation(EUA) by the U.S. Food and Drug Administration . Fact sheets for this Emergency Use Autho rization (EUA) assay can be found at the following link s: For Healthcare Providers: https://www.fda.gov/media/566196/downloa d For Patients: https://www.fda.gov/media/155245/downloa d SARS Coronavirus 2, Source, Swab, Nasopharynx 07/02 10:06 PM CDT MKTO Rapid Specimen Anatomical Collection Method Collection Time Receive d Time (Source) Location / / Volume Laterality Varies 07/25/2021 9:50 PM 2 CDT 10:06 PM CDT Anthony Godwin M.D. LAB MICROBIOLOGY - GENERAL O RDERABLES Performing Organization Address City/State/ZIP Code Phon e Number [address] [address] [place] [address] System in [place] [address] [place] [address] SARS Coronavirus 2, PCR, V Asymptomatic (07/25/2021 9:50 PM CDT) athologist Signature SARS-Coronavir CANCELED 07/25/2021 MKALIE us-2, PCR 10:06 PM CDT Comment: ----ADDITIONAL INFORMATION---- This RT-PCR test using the Xpert Xpress SARS-CoV-2/Flu/RSV assay ([employer] performed on the [employer] DX systems has received Emergency Use Authorization (EU A) by the U.S. Food and Drug Administration. Performanc e characteristics were verified by [facility] inic in a manner consistent with CLIA requirements . Fact sheets for this Emergency Use Autho rization (EUA) assay can be found at the following link s: For Healthcare Providers: https://www.fda.gov/media/320721/downloa d For Patients: https://www.fda.gov/media/226321/downloa d Result canceled by the ancillary. Specimen Source CANCELED 07/25/2021 10:06 PM CDT MKALIE Comment: REVISED RESULTS Specimen Anatomical Collection Method Collection Time Receive d Time (Source) Location / / Volume Laterality Varies 07/25/2021 9:50 PM 2 (Nasopharynx) CDT 10:06 PM CDT Narrative [facility] - 07/25/2021 10:06 PM CDT SARS Coronavirus 2, PCR, V was cancelled on 07/25/2021 at 22:06; Duplicate test request. Anthony Godwin M.D. LAB MICROBIOLOGY - GENERAL O RDERABLES Performing Organization Address City/[facility] Phon e Number [facility]- [address] [place] [address] [place] [address] (ABNORMAL) Ammonia (07/25/2021 7:05 PM CDT) P athologist Signature Ammonia, P 81 (H) <=51 07/25/2021 MKTO mcmol/L 7:29 PM CDT Specimen Anatomical Collection Method Collection Time Receive d Time (Source) Location / / Volume Laterality Blood (Blood, 07/25/2021 7:05 PM 07/26/19 7:08 Venous) CDT PM CDT Anthony Godwin M.D. LAB BLOOD NON ADD-ON Performing Organization Address City/[facility] Phon e Number [address] [address] [place] [address] Lipase (07/25/2021 7:05 PM CDT) P athologist Signature Lipase, P 13 13 - 60 U/L 07/25/2021 7:30 MKTO PM CDT Specimen Anatomical Collection Method Collection Time Receive d Time (Source) Location / / Volume Laterality Blood (Blood, 07/25/2021 7:05 PM 07/26/19 22 7:08 Venous) CDT PM CDT Anthony Godwin M.D. LAB BLOOD ADD-ON Performing Organization Address City/[facility] Phon e Number [address] [address] [place] [address] (ABNORMAL) Comprehensive Metabolic Panel (07/25/2021 7:05 PM [...] CDT eGFR-Black/Afri >90 >=60 07/25/2021 MKTO can Samoan mL/min/BSA 7:30 PM CDT Comment: ----ADDITIONAL INFORMATION---- [...] Address City/State/ZIP Code Phon e Number [facility]- [address] [place] [address] [place] [address] System in [place] [address] [place] [address] (ABNORMAL) CBC with Differential, Blood (07/25/2021 7:05 PM CDT) [facility] Method Time Signature Hemoglobin 7.4 (L) [...] Address City/State/ZIP Code Phon e Number [facility]- [address] [place] [address] [place] [address] [address] documented in this encounter Visit Diagnoses Diagnosis Abdominal Pain - Primary Nausea And Vomiting Cirrhosis Alcoholic (HCC) Hypertension Portal (HCC) documented [...] 400 Units, oral, Daily, First dose on t 07/26/21 at 0900, cholecalciferol 400 units oral daily was interchanged for ergocalciferol 400 units oral daily ciprofloxacin tablet 500 mg (CIPRO) 500 mg, oral, Daily before breakfast, Fi rst dose on 07/26/21 at 0700, Take 2 hours before or 6 hours after antacids containing magnesium or aluminum, sucralfate, didanosine, polymeric phosphate binde rs, or products containing calcium, iron , or zinc., Drug Monitoring Program: Pharmacist to adjust medication dosing based on indication and drug clearance factors., Indications: Prophylaxis, medical folic acid tablet 1 mg 1 mg, oral, Daily, First dose on 07/26/21 at 0900 furosemide tablet 20 mg (LASIX) 20 mg, oral, Daily, First dose on Wed07/26/21 at 0900 lactulose solution 30 g (CHRONULAC) 30 g, oral, 3 times daily, First dose on 07/26/21 at 0900 lidocaine 10 mg/mL (1 %) injection 10 mL (XYLOCAINE) (COMPLE EUGENE) 2029 (Given - Provider: Keith Bahena R.N.) 10 mL, infiltration, Once, On Wed07/25/21 at 2005, For 1 dose magnesium oxide tablet 400 mg (MAG-OX) 400 mg, oral, 2 times daily before break fast and dinner, First dose on 07/26/21 at 0700 metoclopramide injection 10 mg (REGLAN) (COMPLETED) 193 (Given - Provider: Keith Bahena R.N.) 10 mg, intravenous, Once, On Wed07/25/21 at 1919, For 1 dose morphine injection 2 mg (COMPLETED) 354 (Given - Provider: Ying Delgadillo R.N.) 2 mg, intravenous, Once, On 07/26/21 at 0314, For 1 dose morphine injection 4 mg (COMPLETED) 2009 (Given - Provider: Keith Bahena R.N.) 4 mg, intravenous, Once, On Wed07/25/21 at 1948, For 1 dose NaCl 0.9 % bolus 250 mL (COMPLETED) 1913 (New Bag - Provider: Keith Bahena R.N.)1941 (Stopped - Provider: Keith Bahena R.N.) 250 mL, intravenous, at 250 mL/hr, Admin ister over 1 Hours, Once, On Wed07/25/21 at 1855, For [address] tablet 40 mg (PROTONIX) 40 mg, oral, Daily before breakfast, Fir st dose on 07/26/21 at 0700, Swallow whole. Do NOT crush, [...] as of this encounter Care Teams Display Decorator Relationship Specialty Start Date End Date Elsewhere, Pcp PCP - General Family Medicine 03/10/20 11/30/21 Ervin Schroeder MD Referring Provider Family Medicine 03/24/[address] [place] [phone] documented as of this encounter
--- OUTSIDE RECORDS SUMMARY | 2022-01-31 04:32 | XMS_ITS | Encounter Summary ---
:1990 Author Organization [facility] Address [address] [place] [address] Care Team Providers Name Role Phone Elsewhere, Pcp Primary Care Provider Unavailable Reason for Visit Reason Comments Sleepiness Encounter Details Date Type Department Care Team Description 07/19/2021 Documentation Division of Gastroenterology Wali Baldwin in [facility] pedro Mendez M.D. [address] [facility] [address] [place] [phone] [place], [place] [phone] (Wo rk) Social History Tobacco Use Types [...] do you attend anabaptist or Never 2021 sikh services? 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 - 07/19/2021 2:04 AM CDT On-call Fellow Note: Patient is not a patient of [facility] but was connected to the on- call [...] Care Team Description Office Visit [facility], 2 Medicine Vernell Perez [address] [place] [address] [phone] Appointment Radiology [facility], Matthew 2 Y M.B.B.SSuma, Lliian [address] [place] [phone] Hospital Gastroenterology and [facility], Matthew 2 Encounter Hepatology YJoshuaB.B.Kath, Lilian [address] [place] [phone] Surgery Gastroenterology and [facility] [place], [place] ESOPHAG OGASTRODUODENOSCOPY 2 Hepatology Y M.B.B.SSuma, Lilian [address] [place] [phone] Telemedicine Transplant 2 Lab Laboratory Medicine Karin, Olinda Gannon M.D., Ph.D. [address] [place] [phone] Lab Laboratory Medicine Olinda Frazier M.D., Ph.D. [address] [place] [phone] Office Visit Transplant Olinda Frazier M.D., Ph.D. [address] [place] [phone] Appointment Radiology QueenieNewar 2 YJoshuaB.B.SLilian Moise [address] [place] [phone] Appointment Gastroenterology and Adrianne, 2 Hepatology Yue Burciaga M.D. [address] [place] [phone] Office Visit Gastroenterology and Matthew Jerome 2 Hepatology Joshua RodriguezBSumaBLilian Bedolla [address] [place] [address] [phone] Appointment Radiology Matthew Jerome 2 YJoshuaB.B.Lilian [place] [address] [place] [phone] Scheduled Procedures Name Priority Associated Diagnoses Date/Time ESOPHAGOGASTRODUODENOSCOPY Cirrhosis Alc oholic (HCC) 02/10/2022 8:45 AM CDT Hypertension Portal (HCC) documented as of this encounter Visit Diagnoses Not on filedocumented in this encounter Care Teams Loss Control Engineer Relationship Specialty Start Date End Date Elsewhere, Pcp PCP - General Family Medicine 03/10/20 11/30/21 Ervin Schroeder MD Referring Provider Family Medicine 03/24/[address] [place] [phone] documented as of this encounter
--- OUTSIDE RECORDS SUMMARY | 2022-01-31 04:32 | XMS_ITS | Encounter Summary ---
:1990 Author Organization [facility] Address [address] [place] [address] Care Team Providers Name Role Phone Elsewhere, Pcp Primary Care Provider Unavailable Reason for Referral Outpatient (Routine) - Closed Specialty Diagnoses / Referred By Contact Referred To Procedures Contact Gastroenterology and Kerry Naranjo, [facility] Region Hepatology Elizabeth VIGIL.S.N., R.N. [address] [place] [address] Referral ID Status Reason Start Date Expiration Date Visits Requ ested Visits Authorized [id number] Closed 07/21/2021 07/21/2022 1 1 edication Prior Authorization - Closed Specialty Diagnoses / Procedures Referred By Contact Refer red To Contact Kerry Naranjo APRN M.S.N., R.N. [address] [place] [address] Referral ID Status Reason Start Date Expiration Date Visits Requ ested Visits Authorized [id number] Closed 1 1 Reason for Visit Outpatient (Routine) - Closed Specialty Diagnoses / Referred By Contact Referred To Procedures Contact Gastroenterology and Kerry Naranjo, [facility] Hepatology YARITZA, M.S.N., R.N. 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 Deficiency Vitamin D; [facility] [place] [id number] [facility] Malnutrition Protein-Calorie Unspecified (HCC); [place] [address] [place], [place] Deficiency Coagulation Acqui red (HCC); [phone] Thrombocytopenia (HCC); [phone] Jaundice (Work) Social History Tobacco Use Types [...] do you attend congregation or Never 2021 congregational services? 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 For emergency situation she should present to any emergency department that is closest to her. documented in this encounter Progress Notes Kerry Naranjo APRN, C.N.P., M.S.N. - 07/21/2021 2:45 PM CDT Kerry Naranjo APRN, C.N.P., M.S.N. [address] [place] [address] Patient Name: Catia Carias Date of : 1990 Date of encounter: 07/21/21 ELSEWHERE, PCP VIDEO VISIT Consult conducted via real-time audio/video technology by Kerry Naranjo APRN, C.N.P., M.S.N. at the [facility] to the patient in their home. At the time the patient was scheduled, the chief crew scheduler read the following script to the [...] primary care provider Dr. Ervin Schroeder, from [facility] in [facility]; phone [phone], . She stateshe prescribed vitamin-D for GERD [...] and Family: Twice a week ??? Attends Anabaptism Services: Never ??? 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 -ordered [...] a internal medicine provider at [facility] or [place]; if she feels she needs to be seen more urgently; I would recommend the [facility] which is closest to her. For [...] Naranjo APRN, Katrin.N.Shanita., M.S.N. Gastroenterology and Hepatology [facility] documented in this encounter Plan of Treatment Upcoming Encounters Date Type Specialty Care Team Description Office Visit Community Internal Neda, 2 Medicine Luis Perez. [address] [place] [phone] Appointment Radiology Matthew Jerome 2 Y, M.B.B.SSuma, MJules [address] [place] [phone] Hospital Gastroenterology and Queenie Matthew 2 Encounter Hepatology Jennifer M.B.B.SSuma, Lilian [address] [place] [phone] Surgery Gastroenterology and Matthew Jerome ESOPHAG OGASTRODUODENOSCOPY 2 Hepatology Jennifer M.B.B.SSuma, Lilian [address] [place] [phone] Telemedicine Transplant 2 Lab Laboratory Medicine Karin, Olinda Gannon M.D., Ph.D. [address] [place] [phone] Lab Laboratory Medicine Olinda Frazier M.D., Ph.D. [address] [place] [phone] Office Visit Transplant Olinda Frazier M.D., Ph.D. [address] [place] [phone] Appointment Radiology Matthew Jerome 2 Y, M.B.B.SSuma, MJules [address] [place] [phone] Appointment Gastroenterology and Adrianne, 2 Hepatology Yue Burciaga M.D. [address] [place] [address] Office Visit Gastroenterology and Matthew Jerome 2 Hepatology Tyrell Rodriguez M.D. [address] [place] [phone] Appointment Radiology LuisMatthew abdul 2 Tyrell Rodriguez M.D. [address] [place] [phone] Scheduled Procedures Name Priority Associated Diagnoses Date/Time [...] Deficiency Coagulation Acquired (HCC) Thrombocytopenia (HCC) Jaundice Cirrhosis Alcoholic (HCC) Hypertension Portal (HCC) documented in this encounter Care Teams Terrapin Fisher Relationship Specialty Start Date End Date Elsewhere, Pcp PCP - General Family Medicine 03/10/20 11/30/21 Ervin Schroeder MD Referring Provider Family Medicine 03/24/[address] [place] [phone] documented as of this encounter
--- OUTSIDE RECORDS SUMMARY | 2022-01-31 04:32 | XMS_ITS | Encounter Summary ---
:1990 Author Organization [facility] Address [address] [place] [address] Care Team Providers Name Role Phone Elsewhere, Pcp Primary Care Provider Unavailable Encounter Details Date Type Department Care Team Description 07/16/2021 Clinical Communication Department of Kerry Naranjo Gastroenterology in [place], [place] M.S.N., R.N. 1025 [facility] [address] [place] [address] [place], [place] [phone] [address] Social History Tobacco Use Types Packs/Day [...] do you attend moravian or Never 2021 sabianism services? 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 [...] Care Team Description Office Visit Community Internal [facility], 2 Medicine Vernell Perez 300 [facility] [place] [address] Appointment Radiology Matthew Jerome 2 Y, M.B.B.Kath, Lilian [address] [place] [phone] Hospital Gastroenterology and [facility] 2 Encounter Hepatology Y MSumaBSumaBGraeme, Lilian [address] [place] [phone] Surgery Gastroenterology and [facility] ESOPHAG OGASTRODUODENOSCOPY 2 Hepatology Y M.B.BGraeme, Lilian [address] [place] [phone] Telemedicine Transplant 2 Lab Laboratory Medicine Karin, 2 Adeline Gannon M.D., Ph.D. [address] [place] [phone] Lab Laboratory Medicine Karin, 2 Adeline Gannon M.D., Ph.D. [address] [place] [phone] Office Visit Transplant Karin, Olinda Gannon M.D., Ph.D. [address] [place] [phone] Appointment Radiology Matthew Jerome 2 Y, M.B.B.SSuma, Lilian [address] [place] [phone] Appointment Gastroenterology and Adrianne, 2 Hepatology Yue Burciaga M.D. [address] [place] [address] Office Visit Gastroenterology and Matthew Jerome 2 Hepatology Tyrell Rodriguez M.D. [address] [place] [phone] Appointment Radiology LuisMatthew abdul 2 Joshua RodriguezBLilian Staples [address] [place] [phone] Scheduled Procedures Name Priority Associated Diagnoses Date/Time ESOPHAGOGASTRODUODENOSCOPY Cirrhosis Alc oholic (HCC) 02/10/2022 8:45 AM CDT Hypertension Portal (HCC) documented as of this encounter Visit Diagnoses Not on filedocumented in this encounter Care Teams Paper Rewinder Relationship Specialty Start Date End Date Elsewhere, Pcp PCP - General Family Medicine 03/10/20 11/30/21 Ervin Schroeder MD Referring Provider Family Medicine 03/24/[address] [place] [address] documented as of this encounter
--- OUTSIDE RECORDS SUMMARY | 2022-01-31 04:32 | XMS_ITS | Encounter Summary ---
:1990 Author Organization [facility] Address [address] [place] [address] Care Team Providers Name Role Phone Elsewhere, Pcp Primary Care Provider Unavailable Encounter Details Date Type Department Care Team Description 07/18/2021 Nurse Triage Department of Samia Boyd ch, R.NSuma Medicine, [facility], in [address] [place] [address] [place] [phone] [place] [address] [phone] Social History Tobacco Use Types Packs/Day Years [...] do you attend anglican or Never 2021 denominational services? 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 - 07/18/2021 10:48 PM CDT Chief Complaint / Reason for Call Patient is a 31 y.o. female calling regarding No chief complaint on file.. Assessment Concern: Patient seen in [place] ED via ambulance this evening, boyfriend found [...] does have appointment Friday 07/21 with her Recycling Operator Kerry Naranjo CNP for followup. Patient generally frustrated she wasn't given much information or answers in ED visit. Present for: today Home cares tried: takes medications as prescribed Calling to request: advice The recommended disposition is Information or Advice Only Call. Patient agrees to call back if worsens, has followup appointment with oracle business analyst Kerry Naranjo who has been following her, also with her PCP outside [place] on Wednesday, 07/23. Patient and significant other agree to call back if worsens or have additional questions. documented in this encounter Plan of Treatment Upcoming Encounters Date Type Specialty Care Team Description [facility] 2 Medicine Vernell Perez [address] [place] [phone] Appointment Radiology Matthew Jerome 2 YTyrell, Lilian [address] [place] [phone] Hospital Gastroenterology and Queenie Matthew 2 Encounter Hepatology Tyrell Rodriguez, Lilian [address] [place] [phone] Surgery Gastroenterology and Nechantell Matthew ESOPHAG OGASTRODUODENOSCOPY 2 Hepatology Vik RodriguezBGraeme, Lilian [address] [place] [phone] Telemedicine Transplant 2 Lab Laboratory Medicine Olinda Frazier M.D., Ph.D. [address] [place] [phone] Lab Laboratory Medicine Olinda Frazier M.D., Ph.D. [address] [place] [phone] Office Visit Transplant Olinda Frazier M.D., Ph.D. [address] [place] [address] [place] [phone] Appointment Radiology Matthew Jerome 2 YJoshuaBSumaBGraeme, Lilian [address] [place] [phone] Appointment Gastroenterology demian Silver 2 Hepatology Yue Burciaga M.D. [address] [place] [address] Office Visit Gastroenterology and Matthew Jerome 2 Hepatology Joshua RodriguezBSumaBLilian Bedolla [address] [place] [phone] Appointment Radiology Matthew Jerome 2 Y M.B.B.Lilian [place] [address] [place] [phone] Scheduled Procedures Name Priority Associated Diagnoses Date/Time ESOPHAGOGASTRODUODENOSCOPY Cirrhosis Alc oholic (HCC) 02/10/2022 8:45 AM CDT Hypertension Portal (HCC) documented as of this encounter Visit Diagnoses Not on filedocumented in this encounter Care Teams Freezer Machine Operator Relationship Specialty Start Date End Date Elsewhere, Pcp PCP - General Family Medicine 03/10/20 11/30/21 Ervin Schroeder MD Referring Provider Family Medicine 03/24/211979 [address] [place] [address] documented as of this encounter
--- OUTSIDE RECORDS SUMMARY | 2022-01-31 04:32 | XMS_ITS | Encounter Summary ---
:1990 Author Organization [facility] Address [address] [place] [address] Care Team Providers Name Role Phone Elsewhere, Pcp Primary Care Provider Unavailable Reason for Visit Reason Comments Altered Mental Status Urinary Tract Infection Encounter Details Date Type Department Care Team Description 07/19/2021 Nurse Triage Department of [facility], [place] R, R.N. Status; Urinary Tract Clinic, in [place], [address] Infection [place], [place] [address] [place] [phone] [place] [address] [phone] Social History Tobacco Use Types Packs/Day Years [...] do you attend yazidi or Never 2021 taoism services? 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 encounter Miscellaneous [...] got home from the Emergency Room in [place], patient is wondering if she can talk [...] Community Internal Neda, 2 Medicine Vernell Perez [address] [place] [phone] Appointment Radiology Matthew Jerome 2 Y, M.B.B.SSuma, Lilian [address] [place] [phone] Hospital Gastroenterology and Matthew Jerome 2 Encounter Hepatology Joshua RodriguezB.B.SSuma, Lilian [address] [place] [phone] Surgery Gastroenterology and Matthew Jerome ESOPHAG OGASTRODUODENOSCOPY 2 Hepatology Y M.B.B.SSuma, MJules [address] [place] [phone] Telemedicine Transplant 2 Lab Laboratory Medicine Karin, Olinda Gannon M.D., Ph.D. [address] [place] [phone] Lab Laboratory Medicine Olinda Frazier M.D., Ph.D. [address] [place] [phone] Office Visit Transplant Olinda Frazier M.D., Ph.D. [address] [place] [phone] Appointment Radiology Matthew Jerome 2 Y, M.B.B.SSuma, MJules [address] [place] [address] Appointment Gastroenterology and Olinda Silver Hepatology Yue Burciaga M.D. [address] [place] [phone] Office Visit Gastroenterology and Matthew Jerome 2 Hepatology Tyrell Rodriguez M.D. [address] [place] [phone] Appointment Radiology Matthew Jerome 2, M.B.B.S., M.D. [address] [place] [phone] Scheduled Procedures Name Priority Associated Diagnoses Date/Time ESOPHAGOGASTRODUODENOSCOPY Cirrhosis Alc oholic (HCC) 02/10/2022 8:45 AM CDT Hypertension Portal (HCC) documented as of this encounter Visit Diagnoses Not on filedocumented in this encounter Care Teams Postdoctoral Scientist Relationship Specialty Start Date End Date Elsewhere, Pcp PCP - General Family Medicine 03/10/20 11/30/21 Ervin Schroeder MD Referring Provider Family Medicine 03/24/[address] [place] [address] documented as of this encounter
--- OUTSIDE RECORDS SUMMARY | 2022-01-31 04:32 | XMS_ITS | Encounter Summary ---
:1990 Author Organization [facility] Address [address] [place] [id number] Care Team Providers Name Role Phone Elsewhere, Pcp Primary Care Provider Unavailable Reason for Visit Auth/Cert Specialty Diagnoses / Procedures Referred By Contact Refer red To Contact Diagnoses Vomiting Abdominal pain Procedures n/a Referral ID Status Reason Start Date Expiration Date Visits Requ ested Visits Authorized [id number] 1 1 Encounter Details Date Type Department Care Team Description 07/26/2021 - Hospital Encounter [facility] Radha Bennett M. D. [address] [place] [phone] Vomiting (Primary 07/27/2021 [facility] Serene Montgomery M.D. [address] [place] [address] [phone] Dx) [facility], Fifth Floor [address] [place] [address] [phone] Social History Tobacco Use Types Packs/Day Years [...] do you attend gnosticism or Never 2021 congregational services? 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 Primary Team: [facility] Medicine 1 ([facility]) Primary Care Providers: Elsewhere, Pcp (General) No [...] 08/29/2021 4:00 PM FAM COVID PRE SCREEN [facility] Family Medicine For appointment details [...] more sleepy than usual. She presented to [facility] emergency department on 07/25 with nausea, vomiting, [...] local hospital beds, she was transferred to [facility] for further investigation and management. On presentation at [facility], she was in stable condition with vital [...] not effective for her N/V. Nicole Dalal Pharm.D., R.Ph. documented in this encounter H&P Notes Virginie Batista M.D. - 07/26/2021 11:07 AM CDT T Medicine 1 ([facility]) Admission Note SUBJECTIVE CHIEF COMPLAINT Nausea and vomiting HISTORY OF PRESENT ILLNESS Ms. Catia Craias is a 31 y.o. female who presents [...] admitted locally and she was transferred to [place]. Of note, on 07/06/21, she presented to [...] border. 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 Cardiology was consulted and recommended follow up with a wheel aligner in the outpatient setting. Ms. Carias tells [...] with her boyfriend in an apartment in [place], [place]. She is not currently working but usedto work at the [employer] in [place]. Her last drink of alcohol was in [...] intact. No evidence of disorganizedthinking. 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 She has insight into her history of [...] female who presented to the ED in [place] yesterday with nausea and vomiting for about [...] that she followed up with them at [place]. - Plan: ?? Recommend Cardiology outpatient follow up. Baseline Mobility: BMAT Level 4 (Able to stand and walk) Diet: low sodium diet Tubes/lines: PIV VTE prophylaxis: heparin Code status: Full Code Surrogate Decision Maker: Parents and boyfriend, nabil Robin Disposition: Home documented in this encounter Nursing Notes Celena Richardson R.N. - 07/27/2021 2:54 PM CDT Problem: PAIN [...] me if you have questions. Thank you, ZACH Trevizo Clinical Documentation Stock Clipper Query created by: ZACH Trevizo 07/28/2021 11:55 [...] more sleepy than usual. She presented to [facility] emergency department on 07/25 with nausea, vomiting, [...] local hospital beds, she was transferred to [facility] for further investigation and management. On presentation at [facility], she was in stable condition with vital [...] Type Specialty Care Team Description Office Visit [facility] Internal [facility], Medicine Vernell Perez [address] [place] [phone] Appointment Radiology Matthew Jerome 2 Y, Tyrell, M.DSuma [address] [place] [phone] Hospital Gastroenterology and Queenie Matthew 2 Encounter Hepatology Joshua RodriguezBSumaBSumaSSuam, Lilian [address] [place] [phone] Surgery Gastroenterology and Queenie Matthew ESOPHAG OGASTRODUODENOSCOPY 2 Hepatology Joshua RodriguezBSumaBLilian Bedolla [address] [place] [phone] Telemedicine Transplant 2 Lab Laboratory Medicine Karin, 2 Adeline Gannon M.D., Ph.D. [address] [place] [phone] Lab Laboratory Medicine Karin, 2 Adeline Gannon M.D., Ph.D. [address] [place] [phone] Office Visit Transplant Karin, 2 Adeline Gannon M.D., Ph.D. [address] [place] [phone] Appointment Radiology Matthew Jerome 2 Elizabeth Rodriguez.B.B.SLilian Moise [address] [place] [phone] Appointment Gastroenterology and Adrianne, 2 Hepatology Yue Burciaga M.D. [address] [place] [phone] Office Visit Gastroenterology and Queenie Matthew 2 Hepatology Elizabeth Rodriguez.BLilian Staples [address] [place] [phone] Appointment Radiology Queenie Matthew 2 Y, Lilian Santillan [address] [place] [phone] Pending Results Name Type Priority Associated Diagnoses Date/Ti mt Prepare Red Blood Blood Bank Routine 07/26/2021 [...] LD (Lactate Dehydrogenase) (07/27/2021 10:15 AM CDT) [facility] LD 218 122 - 222 07/27/2021 DTL U/L 11:27 AM CDT Specimen Anatomical Collection Method Collection Time Receive d Time (Source) Location / / Volume Laterality Blood (Blood, 07/27/2021 10:15 07/27/2021 Venous) AM CDT 11:03 AM CDT Conor Santana., M.S. LAB BLOOD NON ADD-ON Performing Organization Address City/[facility] Code Phon e Number [facility] - 200 [place], [place] [address] [facility] [place] [address] Laboratories-[address] Direct Antiglobulin Test (Poly) (07/27/2021 10:15 AM CDT) Patholo gist Method Time Signature Direct Negative Negative 07/27/2021 STRM Antiglobulin 10:50 AM CDT Test, Polyspecific Specimen Anatomical Collection Method Collection Time Receive d Time (Source) Location / / Volume Laterality Blood (Blood, 07/27/2021 10:15 07/27/2021 Venous) AM CDT 10:27 AM CDT Conor Santana., M.S. LAB BLOOD BANK TEST O RDERABLES Performing Organization Address City/[facility] Code Phon e Number [facility] - [address] [place], [place] [address] [facility] [place] [address] Laboratories-[address] Peripheral Smear Interpretation (07/27/2021 9:39 AM CDT) Component Value Ref Test Analysis Performed Pathologis t Range Method Time At [facility] 07/28/2021 [facility] 10:50 AM CDT Report Marcela Rogers M.D. 07/28/2021 [facility] electronically 10:50 AM signed by CDT I verify that I have examined all relevant slides/materials for the specimen(s) and rendered or confirmed the diagnosis. Interpretation Marked acanthocytosis present, compatible with clini ada 07/28/2021 [facility] history of alcohol-associated cirrhosis. 10:50 AM CDT Specimen Anatomical Collection Method Collection Time Receive d Time (Source) Location / / Volume Laterality Blood 07/27/2021 9:39 AM 9:39 CDT AM CDT Conor Santillan, M.S. LAB PATHOLOGY/CYTOLOG Y ORDERABLES Performing Organization Address City/[facility]/ZIP Code Phon e Number [facility] - [address] [place], [place] [address] [place] [address] (ABNORMAL) Reticulocytes (07/27/2021 9:39 AM CDT) Patholo gist Method Time Signature Reticulocytes, B 7.52 (H) 0.60 - 07/27/2021 PM 2.71 % 11:12 AM CDT Absolute 155.7 (H) 30.4 - 07/27/2021 [facility] Reticulocyte 110.9 11:12 AM CDT x10(9)/L Specimen Anatomical Collection Method Collection Time Receive d Time (Source) Location / / Volume Laterality Blood (Blood, 07/27/2021 9:39 AM 07/28/19 9:39 Venous) CDT AM CDT Conor Santillan, M.S. LAB BLOOD ADD-ON Performing Organization Address City/[facility]/ZIP Code Phon e Number [facility] - [address] (ABNORMAL) Morphology Evaluation (Special Smear) (07/27/2021 9:39 AM CDT) Analysis Performed At Patho logist Time Signature Neutrophilic Segs 78 (H) 50 - 75 % 07/28/2021 DTL and Bands 11:07 AM CDT Lymphocytes 16 (L) 18 - 42 % 07/28/2021 PM 11:07 AM CDT Monocytes 6 2 - 11 % 07/28/2021 [facility] 11:07 AM CDT Specimen Anatomical Collection Method Collection Time Receive d Time (Source) Location / / Volume Laterality Blood (Blood, 07/27/2021 9:39 AM 07/28/19 9:39 Venous) CDT AM CDT Conor Santillan, M.S. LAB BLOOD ADD-ON Performing Organization Address City/[facility]/ZIP Code Phon e Number [facility] - [address] [place], [place] [address] [facility] [place] [address] [facility] 200 [facility] [place] [address] [facility] 200 [facility] (ABNORMAL) CBC with Differential, Blood (07/27/2021 5:10 AM CDT) [facility] Method Time Signature Hemoglobin 7.5 (L) [...] M.D. LAB BLOOD ADD-ON Performing Organization Address City/[facility] Phon e Number [facility] - [address] [place], [place] [address] [place] [address] [facility] 200 [facility] (ABNORMAL) Prothrombin Time (PT) (07/27/2021 5:09 AM CDT) [facility] Method Time Signature Prothrombin 31.4 (H) 9.4 [...] M.D. LAB BLOOD ADD-ON Performing Organization Address City/[facility] Code Phon e Number [facility] - [address] [place], [place] [address] [place] [address] [facility] 200 [facility] (ABNORMAL) Hepatic Function Panel (07/27/2021 5:09 AM CDT) [facility] Method Time Signature Bilirubin, Total, S 11.3 [...] City/State/ZIP Code Phon e Number [facility] - [address] [place], [place] [address] [facility] [place] [address] [facility] [address] [facility] (ABNORMAL) Basic Metabolic Panel (07/27/2021 5:09 AM [...] 07/27/2021 DTL Black/ mL/min/BSA 5:52 AM CDT Swiss Comment: ----ADDITIONAL INFORMATION---- Estimated GFR calculated using [...] LAB BLOOD ADD-ON Performing Organization Address City/State/ZIP [facility] Phon e Number [facility] - [address] [place], [place] [address] [place] [address] [facility] [address] (ABNORMAL) Haptoglobin (07/27/2021 5:04 AM CDT) athologist Signature Haptoglobin, S <14 (L) 30 - 200 07/29/2021 [facility] mg/dL 10:32 AM CDT Specimen Anatomical Collection Method Collection Time Receive d Time (Source) Location / / Volume Laterality Blood (Blood, 07/27/2021 5:04 AM 07/30/19 9:06 Venous) CDT AM CDT Kwabena Zelaya M.D. LAB BLOOD ADD-ON Performing Organization Address City/State/ZIP Code Phon e Number [facility] [address] [place], [place] [address] [facility] [place] [address] Laboratory Medicine and Pathology [address] [place] (ABNORMAL) Hemoglobin (07/26/2021 9:57 PM [...] City/State/ZIP Code Phon e Number [facility] - [address] [place], [place] [address] [facility] [place] [address] [facility] [address] Transfuse Red Blood Cells : (07/26/2021 7:19 [...] cirrhosis. 2. Cholelithiasis. 3. Mild splenomegaly. Virginie Batista M.D. IMG US PROCEDURES Dipstick, Urine (07/26/2021 12:11 PM CDT) Patholo gist Method Time Signature Hemoglobin, Negative Negative 07/26/2021 [...] City/State/ZIP Code Phon e Number [facility] - [address] [place], [place] [address] [facility] [place] [address] [facility] [address] [facility] Osmolality, Urine (07/26/2021 12:11 PM CDT) P athologist Signature Osmolality, U 613 150 - 1150 07/26/2021 DTL mOsm/kg 2:34 PM CDT Specimen Anatomical Collection Method Collection Time Receive d Time (Source) Location / / Volume Laterality Urine 07/26/2021 12:11 07/26/2021 PM CDT 12:58 PM CDT Virginie Batista M.D. LAB URINE ORDERABLES Performing Organization Address City/[facility]/ZIP Code Phon e Number [facility] - [address] [place], [place] [address] [facility] [place] [address] Laboratories-[address] pH, Random, Urine (07/26/2021 12:11 PM CDT) athologist Signature pH, Random, U 6.7 4.5 - 8.0 07/26/2021 DTL 2:34 PM CDT Specimen Anatomical Collection Method Collection Time Receive d Time (Source) Location / / Volume Laterality Urine 07/26/2021 12:11 07/26/2021 PM CDT 12:58 PM CDT Virginie Batista M.D. LAB URINE ORDERABLES Performing Organization Address City/[facility]/ZIP Code Phon e Number [facility] - [address] [address] Laboratories-[address] (ABNORMAL) Microscopic Manual (07/26/2021 12:11 PM CDT) athologist Signature Microscopy Abnormal 07/26/2021 DTL 2:50 [...] M.D. LAB URINE ORDERABLES Performing Organization Address City/[facility]/ZIP Code Phon e Number [facility] - [address] [address] Laboratories-[address] Urinalysis with Microscopic: Urine, Midstream (07/26/2021 12:11 PM CDT) [facility] Method Time Signature Source Urine, Urine, 07/26/2021 [...] City/State/ZIP Code Phon e Number [facility] - [address] [place] [address] [place] [address] [facility]-[address] (ABNORMAL) Prothrombin Time (PT) (07/26/2021 10:58 AM CDT) [facility] Method Time Signature Prothrombin 33.7 (H) 9.4 [...] M.D. LAB BLOOD ADD-ON Performing Organization Address City/[facility] Phon e Number [facility] - [address] [place] [address] [place] [address] CRP (C-Reactive Protein) (07/26/2021 10:58 AM CDT) P athologist Signature C-Reactive 4.6 <=8.0 mg/L 07/26/2021 DTL Protein (CRP), 11:55 AM CDT S Specimen Anatomical Collection Method Collection Time Receive d Time (Source) Location / / Volume Laterality Blood (Blood, 07/26/2021 10:58 07/26/2021 Venous) AM CDT 11:38 AM CDT Virginie Batista M.D. LAB BLOOD ADD-ON Performing Organization Address [facility] Code Phon e Number [facility] - [address] [place] [address] [place] [address] (ABNORMAL) Basic Metabolic Panel (07/26/2021 10:58 [...] 07/26/2021 DTL Black/ mL/min/BSA 11:55 AM CDT Swiss Comment: ----ADDITIONAL INFORMATION---- Estimated GFR calculated using [...] City/State/ZIP Code Phon e Number [facility] - [address] [place] [address] [facility] [place] [address] Laboratories-[address] (ABNORMAL) CBC with Differential, Blood (07/26/2021 10:58 AM CDT) [facility] Method Time Signature Hemoglobin 6.8 (L) [...] City/State/ZIP Code Phon e Number [facility] - [address] [place] [address] [facility]-[address] Type and Screen (with reflex Antibody ID) (07/26/2021 10:57 AM CDT) [facility] Method Time Signature ABORh B Pos [...] BANK TEST ORDERABL ES Performing Organization Address City/[facility]/ZIP Code Phon e Number [facility] - [address] [place] [address] [place] [address] [facility] [address] [facility] (ABNORMAL) Hepatic Function Panel (07/26/2021 10:57 AM CDT) Patholo gist Method Time Signature Bilirubin, Total, S 7.5 [...] City/State/ZIP Code Phon e Number [facility] - [address] [place], [place] [address] [facility] [place] [address] [facility] [address] [facility] Magnesium (07/26/2021 10:57 AM CDT) P athologist Signature Magnesium, S 1.8 1.7 - 2.3 07/26/2021 DTL mg/dL 3:17 PM CDT Specimen Anatomical Collection Method Collection Time Receive d Time (Source) Location / / Volume Laterality Blood (Blood, 07/26/2021 10:57 07/26/2021 2:55 Venous) AM CDT PM CDT Virginie Batista M.D. LAB BLOOD ADD-ON Performing Organization Address City/State/ZIP Code Phon e Number [facility] - [address] [place], [place] [address] [facility] [place] [address] [facility] 200 [facility] ECG 12 Lead (07/26/2021 9:10 AM CDT) P athologist Signature Ventricular Rate 77 BPM MUSE ECG/Min NV Interval 160 ms MUSE QRSD Interval 92 ms MUSE QT Interval 418 ms MUSE QTC Interval 473 ms MUSE P [place] -12 degrees MUSE R [place] 53 degrees MUSE T Wave [place] -6 degrees MUSE Specimen Anatomical Collection Method [...] Batista M.D. ECG ORDERABLES Performing Organization Address City/[facility]/ZIP Code Phon e Number MUSE MUSE NA documented in this encounter Visit Diagnoses Diagnosis Vomiting - Primary Cirrhosis Alcoholic (HCC) Hypertension Portal [...] 10, headaches, Starting on 07/26/21 at 1038 idocdnivsuffd-hguxwhfshg-pxhuwacd in Lipoderm Given 07/28/19 10:15 AM CDT [...] sleep, Starting on Sat 2 at 1354 ivdxbhtxelgy-bkva-[place]-Ca-minerals 400 mcg Given 07/27/2021 8:00 A M [...] D3) 0800 (Given - Provider: Celena Richardson RSumaNSuma) 400 Units, oral, Daily, First dose on Donohue n 07/27/21 at 0900, cholecalciferol 400 units oral daily was interchanged for ergocalciferol 400 units oral daily ciprofloxacin tablet 500 mg (CIPRO) 0800 (Given - Provider: Celena Richardson R.NSuma) 500 mg, oral, Daily before breakfast, Fi [...] mg (CANCELED) 0800 (Given - Provider: Celena Richarsdon RSumaNSuma) 1 mg, oral, Daily, First dose on 07/27/21 at 0900 folic acid tablet 5 mg 5 mg, oral, Daily, First dose (after last modification) on M on 07/28/21 at 0900 furosemide tablet 20 mg (LASIX) 1116 (Given - Pr ovider: Andrew MorganNSuma) 0800 (Given - Provider: Andrew MartinezNSuma) 20 mg, oral, Daily, First dose on 07/26/21 at 1045 gabapentin capsule 300 mg (NEURONTIN) 14 09 (Given - Provider: Humera Murray R.N.)2006 (Given - Provider: Ana Paula Noriega R.N.) 0800 (Given - Provider: Celena Richardson RSumaNSuma)1406 (Given - Provider: Celena Richardson RSumaNSuma) 300 mg, oral, 3 times daily, First dose on 07/26/21 at 1400 heparin (porcine) injection 5,000 Units 1409 (Given - Provider: Humera Murray RSumaNSuma)2006 (Given - Provider: Ana Paula Noriega R.N.) 0647 (Not Given - Provider: Ana Paula Noriega R.N. - Reason: Patient/family refused)1403 (Not Given - Provider: Celena Richardson RSumaNSuma - Reason: Patient/family refused - Comment: pt [...] (CHRONULAC) 1410 (Given - Provider: Humera Murray R.N.)2006 (Given - Provider: Ana Paula Noirega R.N.) 0800 (Given - Provider: Andrew MartinezN.)1406 (Given - Provider: Andrew MartinezNSuma) 30 g, oral, 3 times daily, First dose on 07/26/21 at 1400 magnesium oxide tablet 400 mg (MAG-OX) 1 614 (Given - Provider: Andrew MorganNSuma) 0800 (Given - Provider: Andrew BeltranNSuma) 400 mg, oral, 2 times daily before break fast and dinner, First dose on 07/26/21 at 1600 exsnsgnxuhkx-ohfp-YL-Ca-minerals 400 mcg (folic acid) tablet 1 tablet (THERAPEUTIC-M) 0800 (Given - Provid er: Celena Richardson RSumaNSuma) 1 tablet, oral, Daily, First dose on 07/27/[address] tablet 40 mg (PROTONIX) 0800 (Given - Provider: Celena Richardson RSumaNSuma) 40 mg, oral, Daily before breakfast, Fir st dose on 07/27/21 at 0700, Swallow whole. Do NOT crush, chew, or split tablet. potassium chloride ER tablet 40 mEq (KLORCON/K-TAB) (COMPLET ED) 1409 (Given - Provider: Humera Murray RGabby) 40 mEq, oral, Once, On 07/26/21 at [...] r day on Wed), First dose on 07/28/21 at 0900, For 109 days, Vitamin A (retinol): Units x 0.3 = mcg; 10,000 Units = 3,000 mcg Vitamin A (Supplemental B eta-carotene): Units x 0.3 = mcg Vitamin A (Dietary Beta-carotene): Units x 0.05 = mcg PRN Medication Order 07/25/2021 07/26/2021 07/27/2021 acetaminophen tablet 325 mg (TYLENOL) 16 14 (Given - Provider: Humera Murray RSumaNSuma) 325 mg, oral, Every 6 hours PRN, mild pa in or score 1-3 of 10, moderate pain or score 4-6 of 10, severe pain or score 7-10 of 10, headaches, Starting on 07/26/21 at 1038 zbfzgbhoxgirn-xiclybvzyc-jwzaxmao in Lipoderm 2%-5%-5% cream 1 g 1220 (Given - Provider: Humera Murray RSumaNSuma) 0108 (Given - Provider: Andrew Capellan)1015 (Given [...] mg (ZOFRAN-ODT) 1722 (Given - Provider: Humera Murray, R.N.) 4 mg, oral, Every 6 hours PRN, nausea, v omiting, Starting on 07/26/21 at 1615, When splitting ODT at bedside, handle with gloves and a pill splitter to prevent moisture contact. oxyCODONE IR tablet 5 mg (ROXICODONE) 11 16 (Given - Provider: Humera Murray R.N.)2237 (Given - Provider: Ana Paula Noriega RSumaN.) 0813 (Given - Provider: Celena Richardson R.N.)1444 (Given - Provider: Celena Richardson R.N.) 5 mg, oral, Every 6 hours PRN, moderate pain or score 4-6 of 10, severe pain or score 7-10 of 10, Starting on 07/26/21 at 1036 documented in this encounter Care Teams Enterostomal Nurse Relationship Specialty Start Date End Date Elsewhere, Pcp PCP - General Family Medicine 03/10/20 11/30/21 Ervin Schroeder MD Referring Provider Family Medicine 03/24/[address] [place] [id number] documented as of this encounter
--- OUTSIDE RECORDS SUMMARY | 2022-01-31 04:32 | XMS_ITS | Encounter Summary ---
:1990 Author Organization [facility] Address [address] [place] [address] Care Team Providers Name Role Phone Elsewhere, Pcp Primary Care Provider Unavailable Encounter Details Date Type Department Care Team Description 07/23/2021 Orders Only Pharmacy Prior Auth Maye Clements [phone] Social History Tobacco Use Types Packs/Day Years [...] do you attend denominational or Never 2021 caodaism services? 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 Plan of Treatment Upcoming Encounters Date Type Specialty Care Team Description Office Visit Community Internal [facility], 2 Medicine Vernell Perez [address] [place] [phone] Appointment Radiology Matthew Jerome 2 Y M.B.B.SSuma, Lilian [address] [place] [address] [phone] Hospital Gastroenterology and Matthew Jerome 2 Encounter Hepatology Elizabeth Rodriguez.B.B.SSuma, Lilian [address] [place] [phone] Surgery Gastroenterology and Matthew Jerome ESOPHAG OGASTRODUODENOSCOPY 2 Hepatology Joshua RodriguezB.B.SSuma, Lilian [address] [place] [address] [phone] Telemedicine Transplant 2 Lab Laboratory Medicine Karin, Olinda Gannon M.D., Ph.D. [address] [place] [phone] Lab Laboratory Medicine Karin, 2 Adeline Gannon M.D., Ph.D. [address] [place] [phone] Office Visit Transplant Karin, Olinda Gannon M.D., Ph.D. [address] [place] [phone] Appointment Radiology Matthew Jerome 2 YJoshuaB.B.Lilian Stockton [address] [place] [phone] Appointment Gastroenterology and Adrianne, 2 Hepatology Yue Burciaga M.D. [address] [place] [phone] Office Visit Gastroenterology and Matthew Jerome 2 Hepatology Joshua RodriguezBSumaBLilian Bedolla [address] [place] [phone] Appointment Radiology Matthew Jerome 2 Y M.B.B.SLilian Moise [address] [place] [phone] Scheduled Procedures Name Priority Associated Diagnoses Date/Time ESOPHAGOGASTRODUODENOSCOPY Cirrhosis Alc oholic (HCC) 02/10/2022 8:45 AM CDT Hypertension Portal (HCC) documented as of this encounter Visit Diagnoses Not on filedocumented in this encounter Care Teams Roll Form Operator Relationship Specialty Start Date End Date Elsewhere, Pcp PCP - General Family Medicine 03/10/20 11/30/21 Ervin Schroeder MD Referring Provider Family Medicine 03/24/[address] [place] [phone] documented as of this encounter
--- OUTSIDE RECORDS SUMMARY | 2022-01-31 04:33 | XMS_ITS | Encounter Summary ---
:1990 Author Organization [facility] Address [address] [place] [address] Care Team Providers Name Role Phone Elsewhere, Pcp Primary Care Provider Unavailable Encounter Details Date Type Department Care Team Description 06/30/2021 Lab Department of Kerry Gee Enc ounter For Screening Medicine in [place], YARITZA, M.S.N ., R.N. For Other Viral Diseases [address] (COVID-19) [facility] [place] [phone] (Wo rk) Social History Tobacco [...] do you attend congregation or Never 2021 episcopalian services? Do you belong to any clubs or No 07/17/2021 organizations such as congregation groups, unions, fraJemstep or athletic groups, or school groups? How [...] slept in a senior living (including now)? 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 [address] [place] [phone] Surgery Gastroenterology and Matthew Jerome ESOPHAG OGASTRODUODENOSCOPY 2 Hepatology Tyrell Rodriguez, Lilian [address] [place] [address] [phone] Telemedicine Transplant 2 Lab Laboratory Medicine Olinda Frazier M.D., Ph.D. [address] [place] [phone] Lab Laboratory Medicine Olinda Frazier M.D., Ph.D. [address] [place] [phone] Office Visit Transplant Olinda Frazier M.D., Ph.D. [address] [place] [phone] Appointment Radiology Matthew Jerome 2 YJoshuaBSumaB.SSuma, Lilian [address] [place] [phone] Appointment Gastroenterology and Adrianne, 2 Hepatology Yue Burciaga M.D. [address] [place] [phone] Office Visit Gastroenterology and Matthew Jerome 2 Hepatology Joshua RodriguezB.B.SLilian Moise [address] [place] [phone] Appointment Radiology Matthew Jerome 2 YJoshuaB.B.SLilian Moise [address] [place] [address] [phone] Scheduled Procedures Name Priority Associated Diagnoses Date/Time ESOPHAGOGASTRODUODENOSCOPY Cirrhosis Alc oholic (HCC) 02/10/2022 8:45 AM CDT Hypertension Portal (HCC) documented as of this encounter Procedures Procedure Name Priority Date/Time Associated Diagnosis Comme nts SARS CORONAVIRUS-2 Routine 06/30/2021 2:34 PM Encounter For Re sults for this RNA, V CYLINDER VALVE REPAIRER Screening For Other procedur e are in Viral Diseases the results (COVID-19) section. documented in this encounter Results SARS Coronavirus-2 RNA, V Asymptomatic (06/30/2021 2:34 PM CYLINDER VALVE REPAIRER) [facility] Method Time Signature SARS-CoV-2 Swab, 06/30/2021 MKTO Specimen Nasopharynx 10:42 PM Source CYLINDER VALVE REPAIRER SARS CoV-2 Undetected Undetected 06/30/2021 MKTO RNA, TMA 10:42 PM CYLINDER VALVE REPAIRER Comment: SARS-CoV-2 RNA absent. This result does not rule out COVID-19 in the patient, as the sensitivity of the test depends o n the timing of the specimen collection and the quality of the specim en. Result should be correlated with patient's history and clinical presentat ion. ----ADDITIONAL INFORMATION---- This molecular amplification test was pe rformed using the Aptima SARS-CoV-2 assay ([facility] on the 121nexuss tem under emergency use authorization (EUA) by the U.S. Food and Drug Administ ration. Fact sheets for this EUA assay can be fo und at the following links: For Healthcare Providers: https://www.fd a.gov/media/761751/download For Patients: https://www.fda.gov/media/ 555884/download Specimen Anatomical Collection Method Collection Time Receive d Time (Source) Location / / Volume Laterality Varies 06/30/2021 2:34 PM 5:12 (Nasopharynx) CYLINDER VALVE REPAIRER PM CYLINDER VALVE REPAIRER Kerry Naranjo APRN M.S.N., R.N. 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
--- OUTSIDE RECORDS SUMMARY | 2022-01-31 04:33 | XMS_ITS | Encounter Summary ---
:1990 Author Organization [facility] Address [address] [place] [address] Care Team Providers Name Role Phone Elsewhere, Pcp Primary Care Provider Unavailable Reason for Visit Reason Comments Fever Encounter Details Date Type Department Care Team Description 07/06/2021 Nurse Triage Department of [facility] Arabella Rosa R.N. Fever Medicine in [place], [address] [place] [address] AKIKO CAMARENA [phone] [place] [phone] Social History Tobacco Use Types [...] do you attend advent or Never 2021 hoahaoism services? 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 - 07/06/2021 2:57 AM CST Chief Complaint / Reason for Call Patient is a 30 y.o. female calling regarding Fever. Assessment Concern: 100.4 fever with stage 4 liver cirrhosis diagnosis. No other new symptoms. Present for: Call somewhat feverish over past 24 hours, but more noticeable in past 2 hours. Home cares tried: None Calling to request: Advice The recommended disposition is Information or Advice Only Call. .Transferred for [facility] specialty. Patient unable to take OTCs and is unsure of urgency of fever with medical condition. E SPECIALIST documented in this encounter Plan of Treatment Upcoming Encounters Date Type Specialty Care Team Description Office Visit Community Internal [facility], 2 Medicine Vernell Perez [address] [place] [phone] Appointment Radiology Matthew Jerome 2 Y, M.Lilian Hudson [address] [place] [phone] [facility] Gastroenterology and [facility] 2 Encounter Hepatology Tyrell Rodriguez M.D. [address] [place] [phone] Surgery Gastroenterology and [facility] Alice, Seth ESOPHAG OGASTRODUODENOSCOPY 2 Hepatology Tyrell Rodriguez M.D. [address] [place] [phone] Telemedicine Transplant 2 Lab Laboratory Medicine Karin, 2 Adeline Gannon M.D., Ph.D. [address] [place] [phone] Lab Laboratory Medicine Karin, 2 Adeline Gannon M.D., Ph.D. [address] [place] [phone] Office Visit Transplant Karin, 2 Adeline Gannon M.D., Ph.D. [address] [place] [phone] Appointment Radiology [facility] 2 Joshua RodriguezBSumaBGraeme, Lilian [address] [place] [phone] Appointment Gastroenterology and Adrianne, 2 Hepatology Yue Burciaga M.D. [address] [place] [phone] Office Visit Gastroenterology and Matthew Jerome 2 Hepatology Tyrell Rodriguez M.D. [address] [place] [phone] Appointment Radiology LuisMatthew abdul 2 Tyrell Rodriguez M.D. [address] [place] [phone] Scheduled Procedures Name Priority Associated Diagnoses Date/Time ESOPHAGOGASTRODUODENOSCOPY Cirrhosis Alc oholic (HCC) 02/10/2022 8:45 AM CDT Hypertension Portal (HCC) documented as of this encounter Visit Diagnoses Not on filedocumented in this encounter Care Teams Principal Strategist Relationship Specialty Start Date End Date Elsewhere, Pcp PCP - General Family Medicine 03/10/20 11/30/21 Ervin Schroeder MD Referring Provider Family Medicine 03/24/[address] [place] [phone] documented as of this encounter
--- OUTSIDE RECORDS SUMMARY | 2022-01-31 04:33 | XMS_ITS | Encounter Summary ---
:1990 Author Organization [facility] Address [address] [place] [address] Care Team Providers Name Role Phone Elsewhere, Pcp Primary Care Provider Unavailable Reason for Visit Auth/Cert Specialty Diagnoses / Procedures Referred By Contact Refer red To Contact Diagnoses Cirrhosis Alcoholic (HCC) Cirrhosis Alcoholic (HCC) [K70.30] Procedures [place] EGD TRANSORAL DX ESOPHAGOGASTRODUODENOSCOPY Referral ID Status Reason Start Date Expiration Date Visits Requ ested Visits Authorized [id number] 1 1 Encounter Details Date Type Department Care Team Description 07/02/2021 Hospital Encounter Department of David Fish, Gastroenterology in .B.[address] [place] [phone] Social History Tobacco Use Types [...] do you attend rastafarian or Never 2021 mosque services? 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 Medications at [...] Internal Neda, 2 Medicine Vernell Perez [address] [place] [phone] Appointment Radiology Matthew Jerome 2 Y, JoshuaBSumaBGraeme, Lilian [address] [place] [phone] Hospital Gastroenterology and Matthew Jerome 2 Encounter Hepatology Joshua RodriguezBSumaBGraeme, Lilian [address] [place] [phone] Surgery Gastroenterology and Matthew Jerome ESOPHAG OGASTRODUODENOSCOPY 2 Hepatology YJoshuaB.B.SSuma, Lilian [address] [place] [phone] Telemedicine Transplant 2 Lab Laboratory Medicine Karin, Olinda Gannon M.D., Ph.D. [address] [place] [phone] Lab Laboratory Medicine Olinda Frazier M.D., Ph.D. [address] [place] [phone] Office Visit Transplant Olinda Frazier M.D., Ph.D. [address] [place] [address] [phone] Appointment Radiology Matthew Jerome 2 Y, M.B.B.Kath, M.D. [address] [place] [phone] Appointment Gastroenterology and Olinda Silver Hepatology Yue Burciaga M.D. [address] [place] [phone] Office Visit Gastroenterology and Matthew Jerome 2 Hepatology Joshua RodriguezBSumaBLilian Bedolla [address] [place] [phone] Appointment Radiology Matthew Jerome 2, M.B.B.S., M.D. [address] [place] [phone] Scheduled Procedures Name Priority Associated Diagnoses Date/Time ESOPHAGOGASTRODUODENOSCOPY Cirrhosis Alc oholic (HCC) 02/10/2022 8:45 AM CDT Hypertension Portal (HCC) documented as of this encounter Visit Diagnoses Diagnosis Cirrhosis Alcoholic (HCC) - Primary Cirrhosis Alcoholic (HCC) Hypertension Portal (HCC) documented in this encounter Admitting Diagnoses Diagnosis Cirrhosis Alcoholic (HCC) documented in this encounter Care Teams Resistance Welding Machine Operator Relationship Specialty Start Date End Date Elsewhere, Pcp PCP - General Family Medicine 03/10/20 11/30/21 Ervin Schroeder MD Referring Provider Family Medicine 03/24/[address] [place] [phone] documented as of this encounter
--- OUTSIDE RECORDS SUMMARY | 2022-01-31 04:33 | XMS_ITS | Encounter Summary ---
:1990 Author Organization [facility] Address [address] [place] [address] Care Team Providers Name Role Phone Elsewhere, Pcp Primary Care Provider Unavailable Encounter Details Date Type Department Care Team Description 06/26/2021 Orders Only Department of [place], Cirrhosis Alco holic Gastroenterology in [facility], ([facility]) (P rimary Dx) [place], [place] P.AKandis, M.S. 10[address] [facility] 10[address] [place] [address] [place], [place] [phone] Social History Tobacco Use Types Packs/Day [...] do you attend yazidi or Never 2021 christianity services? Do you belong to any clubs or No 07/17/2021 organizations such as yazidi groups, unions, [employer] or athletic groups, or school groups? How [...] at Date Recorded Female 04/12/2021 7:39 PM [employer] documented as of this encounter Plan of Treatment Upcoming Encounters Date Type Specialty Care Team Description Office Visit Community Internal [facility], 2 Medicine Vernell Perez [address] [place] [address] [phone] Appointment Radiology Matthew Jerome 2 YTyrell, Lilian [address] [place] [phone] Hospital Gastroenterology and Matthew Jerome 2 Encounter Hepatology Tyrell Rodriguez M.D. [address] [place] [address] [phone] Surgery Gastroenterology and Matthew Jerome ESOPHAG OGASTRODUODENOSCOPY 2 Hepatology Tyrell Rodriguez M.D. [address] [place] [phone] Telemedicine Transplant 2 Lab Laboratory Medicine Olinda Frazier M.D., Ph.D. [address] [place] [phone] Lab Laboratory Medicine Olinda Frazier M.D., Ph.D. [address] [place] [phone] Office Visit Transplant Olinda Frazier M.D., Ph.D. [address] [place] [phone] Appointment Radiology Matthew Jerome 2 YJoshuaBSumaB.SSuma, Lilian [address] [place] [phone] Appointment Gastroenterology and Adrianne, 2 Hepatology Yue Burciaga M.D. [address] [place] [phone] Office Visit Gastroenterology and Matthew Jerome 2 Hepatology Joshua RodriguezB.B.SLilian Moise [address] [place] [phone] Appointment Radiology Matthew Jerome 2 YJoshuaB.B.SLilian Moise [address] [place] [address] [phone] Scheduled Procedures Name Priority Associated Diagnoses Date/Time ESOPHAGOGASTRODUODENOSCOPY Cirrhosis Alc oholic (HCC) 02/10/2022 8:45 AM CDT Hypertension Portal (HCC) documented as of this encounter Results (ABNORMAL) Prothrombin Time (PT) (06/30/2021 2:27 PM [employer]) [facility] Method Time Signature Prothrombin 26.7 (H) 9.4 - 12.5 06/30/2021 MKTO Time, P sec 3:02 PM [employer] INR 2.3 0.9 - 1.1 06/30/2021 MKTO 3:02 PM [employer] Comment: ----ADDITIONAL INFORMATION---- Standard intensity warfarin therapeutic range: 2.0 to 3.0 ?? High intensity warfarin therapeutic rang e: 2.5 to 3.5 Specimen Anatomical Collection Method Collection Time Receive d Time (Source) Location / / Volume Laterality Blood (Blood, 06/30/2021 2:27 PM 06/30/19 2:46 Venous) [employer] PM [employer] Magaly Molina P.A.-C. M.S. LAB BLOOD ADD-ON Performing Organization Address City/State/ZIP Code Phon e Number [facility]- [address] [place] [address] [place] [address] documented in this encounter Visit Diagnoses Diagnosis Cirrhosis Alcoholic (HCC) - Primary Cirrhosis Alcoholic (HCC) Hypertension Portal (HCC) documented in this encounter Care Teams Switchboard Wirer Relationship Specialty Start Date End Date Elsewhere, Pcp PCP - General Family Medicine 03/10/20 11/30/21 Ervin Schroeder MD Referring Provider Family Medicine 03/24/[address] [place] [address] documented as of this encounter
--- OUTSIDE RECORDS SUMMARY | 2022-01-31 04:33 | XMS_ITS | Encounter Summary ---
:1990 Author Organization [facility] Address [address] [place] [address] Care Team Providers Name Role Phone Elsewhere, Pcp Primary Care Provider Unavailable Reason for Referral Appointment Request (Routine) - Closed Specialty Diagnoses / Procedures Referred By Contact Refer red To Contact Diagnoses Cirrhosis Alcoholic (HCC) Ascites Anemia Macrocytic Thrombocytopenia (HCC) Deficiency Coagulation Acquired (HCC) Kerry Naranjo APRN, Procedures Prothrombin Time (PT) M.S.N., R.N. [address] [place] [phone] Referral ID Status Reason Start Date Expiration Date Visits Requ ested Visits Authorized [id number] Closed 07/07/2021 07/07/2022 1 OR DATABASE ADMINISTRATOR Encounter Details Date Type Department Care Team Description 07/04/2021 Clinical Communication Department of Felicita Spicer Gastroenterology in [place], [place], [place] [phone] 10[address] [facility] [place] [phone] Social History Tobacco Use Types Packs/Day [...] do you attend anglican or Never 2021 temple services? Do you belong to any clubs [...] or slept in a halfway (including now)? 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 - 2021 11:19 AM SENIOR DATABASE ADMINISTRATOR As stated below by Kerry Naranjo, the following is the plan for this patient and upcoming EGD. I have ordered Vitamin K 5 mg X 7 days, to take orally. Then follow up by repeat PT/INR on the 8th day. Please call pt and ask to get the lab at [facility] in [place]; this allows access to results. Past attempts [...] it was okay to leave detailed message. Photocopying Equipment Mechanic called to again discuss plan with patient and left a detailed message as outlined above. Informed her to expect a call from scheduling to set up the lab appointment. OR DATABASE ADMINISTRATOR Telephone Encounter - Felicita Spicer L.P.N. - [...] had no further questions at this time. OR DATABASE ADMINISTRATOR Telephone Encounter - Kerry Naranjo APRN, C.NDayne, M.S.N. - 07/08/2021 12:53 PM CST Her upper GI endoscopy is screening for the presence of varices. This is non urgent at this time as to the best of my knowledge she is not currently having any GI bleeding related to the presence of varices. August 12 would be okay Kerry Naranjo APRN, Katrin.N.P., M.S.N. OR DATABASE ADMINISTRATOR Telephone Encounter - Mihaela Dudley - 07/08/2021 [...] answer all her questions before the procedure. OR DATABASE ADMINISTRATOR Telephone Encounter - Felicita Spicer L.P.N. - 07/08/2021 10:16 AM SENIOR DATABASE ADMINISTRATOR Patient returned call and it was discussed [...] also report that she is currently at [facility] and inquired if [facility] had beds available. Informed her that I am unaware of hospital bed availability. She had no further questions at this time. OR DATABASE ADMINISTRATOR Telephone Encounter - Felicita Spicer L.P.N. - [...] patient can pickup closer to procedure date. OR DATABASE ADMINISTRATOR Telephone Encounter - Kerry Naranjo APRN C.N.P., M.S.N. - 07/07/2021 1:43 PM CST I have ordered Vitamin K 5 mg X 7 days, to take orally. Then follow up by repeat PT/INR on the 8th day. Please call pt and ask to get the lab at [facility] in [place]; this allows access to results. Past attempts to get lab work from outside PCP has failed. She should start to take the Vitamin K 10 days prior to the r/s EGD. I have also ordered the EGD/MAC, however the last EGD should of been put back in the que and not cancelled. Thank you, Kerry OR DATABASE ADMINISTRATOR Telephone Encounter - Felicita Spicer L.P.N. - 07/04/2021 9:00 AM CST Photocopying Equipment Mechanic received a call this morning from endoscopy [...] the patient she does have several questions, magazine writer informed her it may not be a bad idea to keep theappointment even if she has not had the EGD as this will allow her to ask her questions and get some answers. Photocopying Equipment Mechanic informed the patient that I would follow up regarding the plan moving forward as I see recommendations documented in the chart, however I do not see any specific orders. Informed her that Kerry is out of office today and should be back on Wednesday. OR DATABASE ADMINISTRATOR documented in this encounter Plan of Treatment Upcoming Encounters Date Type Specialty Care Team Description Office Visit [facility], 2 Medicine Vernell Perez [address] [place] [phone] Appointment Radiology Matthew Jerome 2 Y, M.B.BGraeme, Lilian [address] [place] [phone] Hospital Gastroenterology and [facility], Matthew 2 Encounter Hepatology Y MSumaBJhoan, Lilian [address] [place] [phone] Surgery Gastroenterology and [facility], Matthew ESOPHAG OGASTRODUODENOSCOPY 2 Hepatology Y M.B.BGraeme, Lilian [address] [place] [phone] Telemedicine Transplant 2 Lab Laboratory Medicine Karin, 2 Adeilne Gannon M.D., Ph.D. [address] [place] [phone] Lab Laboratory Medicine Karin, 2 Adeline Gannon M.D., Ph.D. [address] [place] [phone] Office Visit Transplant Karin, Olinda Gannon M.D., Ph.D. [address] [place] [phone] Appointment Radiology Matthew Jerome 2 Y, M.B.B.SSuma, Lilian [address] [place] [phone] Appointment Gastroenterology and [place], 2 Hepatology Yue Burciaga M.D. [address] [place] [phone] Office Visit Gastroenterology and Matthew Jerome 2 Hepatology Tyrell Rodriguez M.D. [address] [place] [phone] Appointment Radiology LuisMatthew abdul 2 Tyrell Rodriguez M.D. [address] [place] [phone] Scheduled Procedures Name Priority Associated Diagnoses Date/Time ESOPHAGOGASTRODUODENOSCOPY Cirrhosis Alc oholic (HCC) 02/10/2022 8:45 AM CDT Hypertension Portal (HCC) documented as of this encounter Results (ABNORMAL) Prothrombin Time (PT) (08/28/2021 5:01 PM CDT) [facility] gist Method Time Signature Prothrombin 25.9 (H) 9.4 [...] PM 08/29/19 6:01 Venous) CDT PM CDT Elizabeth Newsome APRN.S.N., R.N. LAB BLOOD ADD-ON Performing Organization Address City/State/ZIP Code Phon e Number [facility]- [address] [place] [address] [place] [address] System in [place] [address] [facility] documented in this encounter Visit Diagnoses Diagnosis Cirrhosis Alcoholic (HCC) - Primary Ascites Anemia Macrocytic Thrombocytopenia (HCC) Deficiency Coagulation Acquired (HCC) Cirrhosis Alcoholic (HCC) Hypertension Portal (HCC) documented in this encounter Additional Health Concerns Infection Onset Date Last Indicated Resolved Time COVID19 Pending 07/06/2021 07/06/2021 07/06/2021 11:34 AM SENIOR DATABASE ADMINISTRATOR COVID19 Pending 07/25/2021 07/25/2021 07/25/2021 10:07 PM CDT documented as of this encounter Care Teams College Sports Coach Relationship Specialty Start Date End Date Elsewhere, Pcp PCP - General Family Medicine 03/10/20 11/30/21 Ervin Schroeder MD Referring Provider Family Medicine 03/24/211979 [address] [place] [address] documented as of this encounter
--- OUTSIDE RECORDS SUMMARY | 2022-01-31 04:33 | XMS_ITS | Encounter Summary ---
:1990 Author Organization [facility] Address [address] [place] [address] Care Team Providers Name Role Phone Elsewhere, Pcp Primary Care Provider Unavailable Encounter Details Date Type Department Care Team Description 06/30/2021 Clinical Communication Department of Kerry Naranjo Gastroenterology in [place], [place] M.S.N., R.N. 1025 [facility] 10[address] [place] [address] [place], [place] [phone] Social History Tobacco Use Types Packs/Day [...] do you attend jewish or Never 2021 jehovah's witness services? 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 - 07/01/2021 4:12 PM CST Noted. UNIT TEACHER Telephone Encounter - Ellen Stevens R.N. - 07/01/2021 4:11 PM CST Please see message related to when pt is scheduled for FFP pre-EGD. Thanks, Ellen Stevens, RN, OCN UNIT TEACHER Telephone Encounter - Ruth Jeter - 07/01/2021 3:48 PM CST Pt has been scheduled 07/02 @ 1000. Pt is aware. UNIT TEACHER Telephone Encounter - Ellen Stevens RGabby - [...] their department. Thanks, Ellen Stevens RN, OCN UNIT TEACHER Telephone Encounter - Kerry Naranjo APRN, C.N.Frances, M.S.N. - 07/01/2021 11:47 AM CST Signed pended orders for transfusion of 2 units FFP with protocol and post transfusion INR UNIT TEACHER Telephone Encounter - Felicita Spicer L.P.N. - [...] had no further questions at this time. UNIT TEACHER Telephone Encounter - Kerry Naranjo APRN, C.N.Frances, [...] the above above arrangements. Thank you, Kerry UNIT TEACHER documented in this encounter Plan of Treatment Upcoming Encounters Date Type Specialty Care Team Description Office Visit [facility] Internal [facility], 2 Medicine Vernell Perez [address] [place] [phone] Appointment Radiology [facility], [place] 2 YTyrell, Lilian [address] [place] [phone] [facility] Gastroenterology and [place], Matthew 2 Encounter Hepatology Tyrell Rodriguez M.D. [address] [place] [phone] Surgery Gastroenterology and [place], Matthew ESOPHAG OGASTRODUODENOSCOPY 2 Hepatology Tyrell Rodriguez M.D. [address] [place] [phone] Telemedicine Transplant 2 Lab Laboratory Medicine Karin, 2 Adeline Gannon M.D., Ph.D. [address] [place] [phone] Lab Laboratory Medicine Olinda Frazier M.D., Ph.D. [address] [place] [phone] Office Visit Transplant Karin, Olinda Gannon M.D., Ph.D. [address] [place] [phone] Appointment Radiology Matthew Jerome 2 YVikBGraeme, Lilian [address] [place] [phone] Appointment Gastroenterology and [place] Hepatology Yue Burciaga M.D. [address] [place] [phone] Office Visit Gastroenterology and Matthew Jerome 2 Hepatology Joshua RodriguezBSumaBSumaSSuma, Lilian [address] [place] [phone] Appointment Radiology Matthew Jerome 2 YJoshuaBSumaBLilian Bedolla [address] [place] [phone] Scheduled Procedures Name Priority Associated Diagnoses Date/Time ESOPHAGOGASTRODUODENOSCOPY Cirrhosis Alc oholic (HCC) 02/10/2022 8:45 AM CDT Hypertension Portal (HCC) documented as of this encounter Results (ABNORMAL) Prothrombin Time (PT) (07/02/2021 1:22 PM MMD UNIT TEACHER) [facility] Method Time Signature Prothrombin 24.6 (H) 9.4 - 12.5 07/02/2021 MKTO Time, P sec 1:39 PM MMD UNIT TEACHER INR 2.2 0.9 - 1.1 07/02/2021 MKTO 1:39 PM MMD UNIT TEACHER Comment: ----ADDITIONAL INFORMATION---- Standard intensity warfarin therapeutic range: 2.0 to 3.0 ?? High intensity warfarin therapeutic rang e: 2.5 to 3.5 Specimen Anatomical Collection Method Collection Time Receive d Time (Source) Location / / Volume Laterality Blood (Blood, 07/02/2021 1:22 PM 07/03/19 1:31 Venous) MMD UNIT TEACHER PM MMD UNIT TEACHER Elizabeth Newsome APRN.SSumaN., R.N. LAB BLOOD ADD-ON Performing Organization Address City/State/ZIP Code Phon e Number [facility]- [address] [place] [address] [place] [address] System [address] documented in this encounter Visit Diagnoses Diagnosis Cirrhosis Alcoholic (HCC) - Primary Thrombocytopenia (HCC) Splenomegaly Acquired Hypertension Portal (HCC) Cirrhosis Alcoholic (HCC) Hypertension Portal (HCC) documented in this encounter Additional Health Concerns Infection Onset Date Last Indicated Resolved Time COVID19 Pending 06/30/2021 06/30/2021 06/30/2021 10:43 PM MMD UNIT TEACHER documented as of this encounter Care Teams Drug Regulatory Affairs Specialist Relationship Specialty Start Date End Date Elsewhere, Pcp PCP - General Family Medicine 03/10/20 11/30/21 Ervin Schroeder MD Referring Provider Family Medicine 03/24/211979 [address], [place] [address] documented as of this encounter
--- OUTSIDE RECORDS SUMMARY | 2022-01-31 04:33 | XMS_ITS | Encounter Summary ---
:1990 Author Organization [facility] Address [address] [place] [address] Care Team Providers Name Role Phone Elsewhere, Pcp Primary Care Provider Unavailable Encounter Details Date Type Department Care Team Description 06/24/2021 Lab Department of [facility] Sera Morgan, En counter For Medicine in [place], P.A.-C. Preprocedural Laboratory [address] Examination (COVID-19) [address] [place] [address] [place] [address] [phone] Social History Tobacco Use Types Packs/Day Years [...] do you attend cheondoism or Never 2021 sikh services? 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 [address] [place] [phone] Hospital Gastroenterology and Matthew Jerome 2 Encounter Hepatology Tyrell Rodriguez M.D. [address] [place] [phone] Surgery Gastroenterology and Matthew Jerome ESOPHAG OGASTRODUODENOSCOPY 2 Hepatology Tyrell Rodriguez M.D. [address] [place] [phone] Telemedicine Transplant 2 Lab Laboratory Medicine Olinda Frazier M.D., Ph.D. [address] [place] [phone] Lab Laboratory Medicine Olinda Frazier M.D., Ph.D. [address] [place] [phone] Office Visit Transplant Karin, Olinda Gannon M.D., Ph.D. [address] [place] [phone] Appointment Radiology Matthew Jerome 2 YVikBSumaSSuma, Lilian [address] [place] [phone] Appointment Gastroenterology and [place], 2 Hepatology Yue Burciaga M.D. [address] [place] [phone] Office Visit Gastroenterology and Matthew Jerome 2 Hepatology Joshua RodriguezBSumaBSumaSLilian Moise [address] [place] [phone] Appointment Radiology Matthew Jerome 2 YJoshuaB.B.SLilian Moise [address] [place] [phone] Scheduled Procedures Name Priority Associated Diagnoses Date/Time ESOPHAGOGASTRODUODENOSCOPY Cirrhosis Alc oholic (HCC) 02/10/2022 8:45 AM CDT Hypertension Portal (HCC) documented as of this encounter Procedures Procedure Name Priority Date/Time Associated Diagnosis Comme nts SARS CORONAVIRUS-2 Routine 06/24/2021 3:50 PM Encounter For Re sults for this RNA, V DRILLING AND PRODUCTION SUPERINTENDENT Preprocedural procedure are in Laboratory Examination the r esults (COVID-19) section. documented in this encounter Results SARS Coronavirus-2 RNA, V Asymptomatic (06/24/2021 3:50 PM DRILLING AND PRODUCTION SUPERINTENDENT) [facility] Method Time Signature SARS-CoV-2 Swab, 06/24/2021 MKTO Specimen Nasopharynx 10:05 PM Source DRILLING AND PRODUCTION SUPERINTENDENT SARS CoV-2 Undetected Undetected 06/24/2021 MKTO RNA, TMA 10:05 PM DRILLING AND PRODUCTION SUPERINTENDENT Comment: SARS-CoV-2 RNA absent. This result does not rule out COVID-19 in the patient, as the sensitivity of the test depends o n the timing of the specimen collection and the quality of the specim en. Result should be correlated with patient's history and clinical presentat ion. ----ADDITIONAL INFORMATION---- This molecular amplification test was pe rformed using the Aptima SARS-CoV-2 assay ([employer] on the Triages tem under emergency use authorization (EUA) by the U.S. Food and Drug Administ ration. Fact sheets for this EUA assay can be fo und at the following links: For Healthcare Providers: https://www.fd a.gov/media/200503/download For Patients: https://www.fda.gov/media/ 048480/download Specimen Anatomical Collection Method Collection Time Receive d Time (Source) Location / / Volume Laterality Varies 06/24/2021 3:50 PM 5:05 (Nasopharynx) DRILLING AND PRODUCTION SUPERINTENDENT PM DRILLING AND PRODUCTION SUPERINTENDENT Sera Morgan P.A.-C. LAB MICROBIOLOGY - GENERAL O RDERABLES Performing Organization Address City/State/ZIP Code Phon e Number [facility]- [address] [place] [address] [place] [address] System [address] documented in this encounter Visit Diagnoses Diagnosis Encounter For Preprocedural Laboratory E xamination (COVID-19) Cirrhosis Alcoholic (HCC) Hypertension Portal (HCC) documented in this encounter Care Teams Computer Operator Relationship Specialty Start Date End Date Elsewhere, Pcp PCP - General Family Medicine 03/10/20 11/30/21 Ervin Schroeder MD Referring Provider Family Medicine 03/24/[address] [place] [phone] documented as of this encounter
--- OUTSIDE RECORDS SUMMARY | 2022-01-31 04:33 | XMS_ITS | Encounter Summary ---
:1990 Author Organization [facility] Address [address] [place] [address] Care Team Providers Name Role Phone Elsewhere, Pcp Primary Care Provider Unavailable Encounter Details Date Type Department Care Team Description 07/06/2021 Documentation Department of Gastroenterology Myke Fish, in [place], [facility] 1025 [facility] 10[address] [place] [address] [place], [place] [phone] Social History Tobacco Use Types Packs/Day [...] do you attend buddhist or Never 2021 christianity services? Do you [...] slept in a group home (including now)? 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 SPOOLER documented in this encounter Plan of Treatment Upcoming Encounters Date Type Specialty Care Team Description Office Visit [facility] Internal [place], 2 Medicine Vernell Perez [address] [place] [address] Appointment Radiology Matthew Jerome 2 Y, JoshuaBSumaBGraeme, Lilian [address] [place] [phone] Hospital Gastroenterology and T[place]ell Matthew 2 Encounter Hepatology YJoshuaBSumaBLilian Bedolla [address] [place] [phone] Surgery Gastroenterology and [facility], Matthew ESOPHAG OGASTRODUODENOSCOPY 2 Hepatology YElizabeth.B.B.SSuma, Lilian [address] [place] [phone] Telemedicine Transplant 2 Lab Laboratory Medicine Karin, Olinda Gannon M.D., Ph.D. [address] [place] [phone] Lab Laboratory Medicine Olinda Frazier M.D., Ph.D. [address] [place] [phone] Office Visit Transplant Olinda Frazier M.D., Ph.D. [address] [place] [phone] Appointment Radiology Matthew Jerome 2 Y, M.B.B.SSuma, Lilian [address] [place] [phone] Appointment Gastroenterology and [place], 2 Hepatology Yue Burciaga M.D. [address] [place] [phone] Office Visit Gastroenterology and Matthew Jerome 2 Hepatology Tyrell Rodriguez M.D. [address] [place] [phone] Appointment Radiology Matthew Jerome 2 Tyrell Rodriguez M.D. [address] [place] [phone] Scheduled Procedures Name Priority Associated Diagnoses Date/Time ESOPHAGOGASTRODUODENOSCOPY Cirrhosis Alc oholic (HCC) 02/10/2022 8:45 AM CDT Hypertension Portal (HCC) documented as of this encounter Visit Diagnoses Not on filedocumented in this encounter Care Teams Casket Trimmer Relationship Specialty Start Date End Date Elsewhere, Pcp PCP - General Family Medicine 03/10/20 11/30/21 rEvin Schroeder MD Referring Provider Family Medicine 03/24/[address] [place] [address] documented as of this encounter
--- OUTSIDE RECORDS SUMMARY | 2022-01-31 04:33 | XMS_ITS | Encounter Summary ---
:[address] [facility] Address [address] [place] [address] Care Team Providers Name Role Phone Elsewhere, Pcp Primary Care Provider Unavailable Reason for Visit Reason Comments Outpatient Infusion Fresh frozen plasma Encounter Details Date Type Department Care Team Description 07/02/2021 Infusion Department of Infusion Kerry Naranjo S, Jt hrombocytopenia (HCC) (Primary Dx); Therapy in [place], CAN OPERATOR, M.S.N., Cirrhos is Alcoholic (HCC); [place] R.N. Splenomegaly Acquired; 10[address] [facility] 1025 [facility] Hypertension Portal (HCC) [place] [address] [place], [place] [phone] Social History Tobacco Use Types Packs/Day [...] do you attend islam or Never 2021 confucianist services? Do you belong to any clubs or No 07/17/2021 organizations such as islam groups, unions, fraExpertBeacon or athletic groups, or school groups? 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 documented as of this encounter Last Filed Vital Signs Vital Sign Reading Time Taken Comments Blood Pressure 95/53 07/02/2021 12:56 PM ROTARY DRILLER HELPER Pulse 91 07/02/2021 12:56 PM ROTARY DRILLER HELPER Temperature 38.2 ??C (100.8 ??F) 07/02/2021 12:56 PM ROTARY DRILLER HELPER Respiratory Rate 18 07/02/2021 12:56 PM ROTARY DRILLER HELPER Oxygen Saturation 95% 07/02/2021 12:56 PM ROTARY DRILLER HELPER Inhaled Oxygen Concentration - - Weight - - Height - - Body Mass Index - - documented in this encounter Plan of Treatment Upcoming Encounters Date Type Specialty Care Team Description Office Visit Community Internal Neda, 2 Medicine Vernell Perez [address] [facility] [place] [address] Appointment Radiology Matthew Jerome 2 Y, VikBGraeme, M.Jeri [address] [place] [phone] Hospital Gastroenterology and Matthew Jerome 2 Encounter Hepatology Joshua RodriguezBSumaBSumaSSuma, Lilian [address] [place] [phone] Surgery Gastroenterology and Queenie Matthew ESOPHAG OGASTRODUODENOSCOPY 2 Hepatology Joshua RodriguezBSumaBLilian Bedolla [address] [place] [phone] Telemedicine Transplant 2 Lab Laboratory Medicine Karin, 2 Adeline Gannon M.D., Ph.D. [address] [place] [phone] Lab Laboratory Medicine Karin, 2 Adeline Gannon M.D., Ph.D. [address] [place] [phone] Office Visit Transplant Karin, 2 Adeline Gannon M.D., Ph.D. [address] [place] [phone] Appointment Radiology Matthew eJrome 2 Jennifer M.B.B.SLilian Moise [address] [place] [phone] Appointment Gastroenterology and Adrianne, 2 Hepatology Yue Burciaga M.D. [address] [place] [phone] Office Visit Gastroenterology and Queenie Matthew 2 Hepatology Jennifer M.Lilian Hudson [address] [place] [phone] Appointment Radiology Matthew Jerome 2 Y, Lilian Santillan [address] [place] [phone] Pending Results Name Type Priority Associated Diagnoses Date/Ti il Prepare Fresh Blood Bank Routine Thrombocytopenia (HCC) 07/02/2021 10:14 AM Frozen Plasma : 2 Cirrhosis Alcoholic (HC C) ROTARY DRILLER HELPER Units Scheduled Procedures Name Priority Associated Diagnoses Date/Time ESOPHAGOGASTRODUODENOSCOPY Cirrhosis Alc oholic (HCC) 02/10/2022 8:45 AM CDT Hypertension Portal (HCC) documented as of this encounter Procedures Procedure Name Priority Date/Time Associated Diagnosis Comme nts PROTHROMBIN TIME Routine 07/02/2021 1:22 Cirrhosis Alcoholic R esults for this (PT), P PM ROTARY DRILLER HELPER (HCC) procedure are in Thrombocytopenia (HCC) the results Splenomegaly Acq uired section. Hypertension Portal (HCC) TRANSFUSE FRESH Routine 07/02/2021 11:59 Thrombocytopeni a (HCC) FROZEN PLASMA AM ROTARY DRILLER HELPER Cirrhosis Alcoholic (HCC) TRANSFUSE FRESH Routine 07/02/2021 10:57 Thrombocytopeni a (HCC) FROZEN PLASMA AM ROTARY DRILLER HELPER Cirrhosis Alcoholic (HCC) PREPARE FRESH Routine 07/02/2021 10:14 Thrombocytopeni a (HCC) FROZEN PLASMA AM ROTARY DRILLER HELPER Cirrhosis Alcoholic (HCC) documented in this encounter Results (ABNORMAL) Prothrombin Time (PT) (07/02/2021 1:22 PM ROTARY DRILLER HELPER) [facility] Method Time Signature Prothrombin 24.6 (H) 9.4 - 12.5 07/02/2021 MKTO Time, P sec 1:39 PM ROTARY DRILLER HELPER INR 2.2 0.9 - 1.1 07/02/2021 MKTO 1:39 PM ROTARY DRILLER HELPER Comment: ----ADDITIONAL INFORMATION---- Standard intensity warfarin therapeutic range: 2.0 to 3.0 ?? High intensity warfarin therapeutic rang e: 2.5 to 3.5 Specimen Anatomical Collection Method Collection Time Receive d Time (Source) Location / / Volume Laterality Blood (Blood, 07/02/2021 1:22 PM 07/03/19 1:31 Venous) ROTARY DRILLER HELPER PM ROTARY DRILLER HELPER Rachele Newsome APRN., R.N. LAB BLOOD ADD-ON Performing Organization Address City/State/ZIP Code Phon e Number [facility] [address] [place] [address] [facility] [place] [address] System in [place] [address] [place] [address] Transfuse Fresh Frozen Plasma :INR >2: Invasive proc scheduled; 180 mL/hr (07/02/2021 12:57 PM ROTARY DRILLER HELPER) Destiny Newsome APRN, R.N. BLOOD TRANSFUSION OR DERABLES Transfuse Fresh Frozen Plasma :INR >2: Invasive proc scheduled; 180 mL/hr, 2 Units (07/02/2021 12:57 PM ROTARY DRILLER HELPER) Destiny Newsome APRN, R.N. BLOOD TRANSFUSION OR DERABLES Transfuse Fresh Frozen Plasma :INR >2: Invasive proc scheduled; 180 mL/hr (07/02/2021 11:50 AM ROTARY DRILLER HELPER) Rachele Newsome APRN., R.N. BLOOD TRANSFUSION OR DERABLES documented in this encounter Visit Diagnoses Diagnosis Thrombocytopenia (HCC) - Primary Cirrhosis Alcoholic (HCC) Splenomegaly Acquired Hypertension Portal (HCC) Cirrhosis Alcoholic (HCC) Hypertension Portal (HCC) documented in this encounter Administered Medications Inactive Administered Medications - up to 3 most recent administrations Medication Order MAR Action Action Date Dose Rate Site acetaminophen tablet 650 mg Given 07/02/2021 1:04 PM ROTARY DRILLER HELPER 650 mg (TYLENOL) 650 mg, oral, Once as needed, other, blood products administration, Starting on Wed07/02/21 at 1013, For 1 dose documented in this encounter Care Teams Teletypewriter Operator Relationship Specialty Start Date End Date Elsewhere, Pcp PCP - General Family Medicine 03/10/20 11/30/21 Ervin Schroeder MD Referring Provider Family Medicine 03/24/[address] [place] [address] documented as of this encounter
--- OUTSIDE RECORDS SUMMARY | 2022-01-31 04:33 | XMS_ITS | Encounter Summary ---
:1990 Author Organization [facility] Address [address] [place] [address] Care Team Providers Name Role Phone Elsewhere, Pcp Primary Care Provider Unavailable Encounter Details Date Type Department Care Team Description 04/29/2021 Clinical Communication Department of Kerry Naranjo Gastroenterology in [place], [place] M.S.N., R.N. 1025 [facility] 1025 [place] [address] [place], [place] [phone] Social History Tobacco Use Types Packs/Day [...] do you attend yazidi or Never 2021 jewish services? 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 - 04/29/2021 4:07 PM CST Notified patient of recommendations. Patient was very appreciative of the information. RVISOR LAUNDRY Telephone Encounter - Kerry Naranjo APRN C.N.PSuma, M.S.N. - 04/29/2021 4:03 PM CST Reviewed gabapentin in relation to hepatic/liver disease there are no adjustments needed (per [employer]). It is ok for her to take. Kerry Naranjo APRN, C.N.P., M.S.N. RVISOR LAUNDRY Telephone Encounter - Ines Warren R.N. - [...] to taking gabapentin from a GI standpoint? RVISOR LAUNDRY Telephone Encounter - JeanTrish millerbrandy Zamora - 04/29/2021 2:41 PM CST Patient is requesting a call back in regards to her Gabapentin from Kerry Naranjo. Ok to leave a message. RVISOR LAUNDRY documented in this encounter Plan of Treatment Upcoming Encounters Date Type Specialty Care Team Description Office Visit [facility] 2 Medicine Vernell Perez [address] [place] [phone] Appointment Radiology [facility] 2 Y, M.B.B.S., MJules [address] [place] [phone] [facility] Gastroenterology and [facility], Matthew 2 Encounter Hepatology Joshua RodriguezB.B.SSuma, MJules [address] [place] [phone] Surgery Gastroenterology and [facility], [place] ESOPHAG OGASTRODUODENOSCOPY 2 Hepatology Y M.B.B.S., MSumaD. [address] [place] [phone] Telemedicine Transplant 2 Lab Laboratory Medicine Karin, 2 Adeline Gannon M.D., Ph.D. [address] [place] [phone] Lab Laboratory Medicine Karin Olinda Adeline Gannon M.D., Ph.D. [address] [place] [phone] Office Visit Transplant Karin Olinda Adeline Gannon M.D., Ph.D. [address] [place] [phone] Appointment Radiology Matthew Jerome 2 Y M.B.B.SSuma, Lilian [address] [place] [phone] Appointment Gastroenterology and Adrianne 2 Hepatology Yue Burciaga M.D. [address] [place] [phone] Office Visit Gastroenterology and Matthew Jerome 2 Hepatology Jennifer M.B.B.SSuma, Lilian [address] [place] [phone] Appointment Radiology Matthew Jerome 2 Y M.B.B.SSuma, Lilian [address] [place] [place] [phone] Scheduled Procedures Name Priority Associated Diagnoses Date/Time ESOPHAGOGASTRODUODENOSCOPY Cirrhosis Alc oholic (HCC) 02/10/2022 8:45 AM CDT Hypertension Portal (HCC) documented as of this encounter Visit Diagnoses Not on filedocumented in this encounter Care Teams Registered Nurse Obstetrics Relationship Specialty Start Date End Date Elsewhere, Pcp PCP - General Family Medicine 03/10/20 11/30/21 Ervin Schroeder MD Referring Provider Family Medicine 03/24/[address] [place] [address] [phone] (work) documented as of this encounter
--- OUTSIDE RECORDS SUMMARY | 2022-01-31 04:33 | XMS_ITS | Encounter Summary ---
:1990 Author Organization [facility] Address [address] [place] [address] Care Team Providers Name Role Phone Elsewhere, Pcp Primary Care Provider Unavailable Encounter Details Date Type Department Care Team Description 07/02/2021 Documentation Department of Gastroenterology Myke Fish, in [place], [facility] Lewis[facility] 1025 [facility] 1025 [place] [address] [place], [place] [phone] Social History Tobacco Use Types Packs/Day [...] do you attend synagogue or Never 2021 denominational services? Do you [...] or slept in a retirement (including now)? 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 RAISING DIRECTOR documented in this encounter Plan of Treatment Upcoming Encounters Date Type Specialty Care Team Description Office Visit Community Internal [facility] [place], 2 Medicine Vernell Perez [address] [place] [phone] Appointment Radiology Matthew Jerome 2 Y, M.B.B.SSuma, MJules [address] [place] [phone] Hospital Gastroenterology and Queenie Matthew 2 Encounter Hepatology Y, M.B.B.S., MJules [address] [place] [phone] Surgery Gastroenterology and Matthew Jerome ESOPHAG OGASTRODUODENOSCOPY 2 Hepatology Y, M.B.B.S., MJules [address] [place] [phone] Telemedicine Transplant 2 Lab Laboratory Medicine Karin, 2 Adeline Gannon M.D., Ph.D. [address] [place] [phone] Lab Laboratory Medicine Karin, 2 Adeline Gannon M.D., Ph.D. [address] [place] [phone] Office Visit Transplant Karin, 2 Adeline Gannon M.D., Ph.D. [address] [place] [phone] Appointment Radiology Matthew Jerome 2 Y, M.B.B.SSuma, MJules [address] [place] [phone] Appointment Gastroenterology and Doll, 2 Hepatology Yue Burciaga M.D. [address] [place] [phone] Office Visit Gastroenterology and Matthew Jerome 2 Hepatology Tyrell Rodriguez M.D. [address] [place] [phone] Appointment Radiology LuisMatthew abdul 2 Tyrell Rodriguez M.D. [address] [place] [phone] Scheduled Procedures Name Priority Associated Diagnoses Date/Time ESOPHAGOGASTRODUODENOSCOPY Cirrhosis Alc oholic (HCC) 02/10/2022 8:45 AM CDT Hypertension Portal (HCC) documented as of this encounter Visit Diagnoses Not on filedocumented in this encounter Care Teams Motorcycle Tester Relationship Specialty Start Date End Date Elsewhere, Pcp PCP - General Family Medicine 03/10/20 11/30/21 Ervin Schroeder MD Referring Provider Family Medicine 03/24/[address] [place] [phone] documented as of this encounter
--- OUTSIDE RECORDS SUMMARY | 2022-01-31 04:33 | XMS_ITS | Encounter Summary ---
:1990 Author Organization [facility] Address [address] [place] [address] Care Team Providers Name Role Phone Elsewhere, Pcp Primary Care Provider Unavailable Reason for Visit Reason Comments Fever Fever during noc 100.4, Dr. Fish recommending eval for labs due to cirrhosis. Encounter Details Date Type Department Care Team Description 07/06/2021 Emergency [facility] Juan Dang, Fever Of Unknown Origin Martin Holloawy M.D. (Primary Dx) Emergency Department [address] [place] [phone] Social History Tobacco Use Types Packs/Day Years [...] do you attend advent or Never 2021 restorationist services? Do you belong to any clubs or No 07/17/2021 organizations such as advent groups, unions, [employer] or athletic groups, or school groups? How [...] or slept in a snf (including now)? Sex Assigned at Date Recorded Female 04/12/2021 7:39 PM WOOD SETTER documented as of this encounter Last Filed Vital Signs Vital Sign Reading Time Taken Comments Blood Pressure 95/50 07/06/2021 1:30 PM WOOD SETTER Pulse 87 07/06/2021 1:45 PM WOOD SETTER Temperature 37.1 ??C (98.8 ??F) 07/06/2021 1:45 PM WOOD SETTER Respiratory Rate 15 07/06/2021 1:45 PM WOOD SETTER Oxygen Saturation 98% 07/06/2021 1:45 PM WOOD SETTER Inhaled Oxygen Concentration - - Weight 55.1 kg (121 lb 7.6 oz) 07/06/2021 10:41 AM WOOD SETTER Height 157.5 cm (5' 2) 07/06/2021 10:41 AM WOOD SETTER Body Mass Index 22.22 07/06/2021 10:41 AM WOOD SETTER documented in this encounter Discharge Instructions Discharge InstructionsJuan Dang M.D. - 07/06/2021 1:21 PM CST As per Dr. Fish you may take Tylenol as needed for pain, please limit to less than 2,000 mg a day Return to ER if symptoms persist, worsen, or any concerns Please follow all verbal instructions given to you Please follow-up with your primary care doctor or crankshaft grinder Please read all attached documents at discharge It was a pleasure taking care of you today. We hope you feel better soon SETTER documented in this encounter Medications at Time [...] alcoholic liver cirrhosis referred to ED by crankshaft grinder for subjective fever. Patient states she felt [...] medical card, plus non medical, last am OBJECTIVE: INITIAL VITAL SIGNS: Initial Vitals Temperature [...] Negative Bilirubin Moderate (*) pH 7.0 Specific [place] 1.020 Urobilinogen 1.0 White Blood Cells None [...] PCR Undetected Respiratory Syncytial Virus, PCR Undetected [id number]-9, PCR Undetected Specimen Source Swab, Nasopharynx BACTERIA / INES CULTURE, BLOOD Narrative: Specimen Information: Specimen ID: [id number] Specimen Source: Blood, Peripheral Draw Specimen Comment: Specimen Source Site: Blood Specimen Collection Start Date: 07/06/2021 11:15 AM Specimen Received Date: 07/06/2021 11:30 AM Specimen ID: [id number] Specimen Source: Blood, Peripheral Draw Specimen Comment: Specimen Source Site: Blood Specimen Collection Start Date: 07/06/2021 11:15 AM Specimen Received Date: 07/06/2021 11:30 AM Specimen ID: [id number] Specimen Source: Blood, Peripheral Draw Specimen Comment: Specimen Source Site: Blood Specimen Collection Start Date: 07/06/2021 11:15 AM Specimen Received Date: 07/06/2021 11:30 AM BACTERIA / INES CULTURE, BLOOD Narrative: Specimen Information: Specimen ID: [id number] Specimen Source: Blood, Peripheral Draw Specimen Comment: Specimen Source Site: Blood Specimen Collection Start Date: 07/06/2021 11:27 AM Specimen Received Date: 07/06/2021 11:30 AM Specimen ID: [id number] Specimen Source: Blood, Peripheral Draw Specimen Comment: Specimen Source Site: Blood Specimen Collection Start Date: 07/06/2021 11:30 AM Specimen Received Date: 07/06/2021 11:30 AM Specimen ID: [id number] Specimen Source: Blood, Peripheral Draw Specimen Comment: [...] alcoholic liver cirrhosis referred to ED by crankshaft grinder for subjective fever. Denies cough, shortness of [...] is/are normal. Juan Dang M.D. 07/08/21 0041 SETTER documented in this encounter Plan of Treatment Upcoming Encounters Date Type Specialty Care Team Description 10/06/202 Office Visit Community Internal [place], 2 Medicine Vernell Perez [address] [facility] [place] [phone] Appointment Radiology Matthew Jerome 2 Y, MSumaBSumaBLilian Bedolla [address] [place] [phone] Hospital Gastroenterology and [facility] Matthew 2 Encounter Hepatology Joshua RodriguezBSumaBLilian Bedolla [address] [place] [phone] Surgery Gastroenterology and [facility], Matthew ESOPHAG OGASTRODUODENOSCOPY 2 Hepatology YElizabeth.B.B.SSuma, Lilian [address] [place] [phone] Telemedicine Transplant 2 Lab Laboratory Medicine Karin, Olinda Gannon M.D., Ph.D. [address] [place] [phone] Lab Laboratory Medicine Olinda Frazier M.D., Ph.D. [address] [place] [phone] Office Visit Transplant Karin, Olinda Gannon M.D., Ph.D. [address] [place] [phone] Appointment Radiology Matthew Jerome 2 Y, M.B.B.SSuma, Lilian [address] [place] [phone] Appointment Gastroenterology and Adrianne, 2 Hepatology Yue Burciaga M.D. [address] [place] [address] Office Visit Gastroenterology and Matthew Jerome 2 Hepatology Tyrell Rodriguez M.D. [address] [place] [phone] Appointment Radiology LuisMathtew abdul 2 Tyrell Rodriguez M.D. [address] [place] [phone] Scheduled Procedures Name Priority Associated Diagnoses Date/Time ESOPHAGOGASTRODUODENOSCOPY Cirrhosis Alc oholic (HCC) 02/10/2022 8:45 AM CDT Hypertension Portal (HCC) documented as of this encounter Procedures Procedure Name Priority Date/Time Associated Comments Diagnosis BACTERIAL CULTURE, STAT 07/06/2021 11:59 Resul ts for AEROBIC + SUSC, AM WOOD SETTER this procedu re URINE are in the results section. URINALYSIS WITH STAT 07/06/2021 11:54 Results for MICROSCOPIC AM WOOD SETTER this procedure are in the results section. BACTERIA / INES STAT 07/06/2021 11:27 Resul ts for CULTURE, BLOOD AM WOOD SETTER this procedur e are in the results section. LACTATE, B STAT 07/06/2021 11:21 Results for AM WOOD SETTER this procedure are in the results section. MORPHOLOGY STAT 07/06/2021 11:21 Results for EVALUATION AM WOOD SETTER this procedure are in the results section. CBC WITH STAT 07/06/2021 11:21 Results for DIFFERENTIAL, B AM WOOD SETTER this procedu re are in the results section. COMPREHENSIVE STAT 07/06/2021 11:21 Results fo r METABOLIC PANEL, S/P AM WOOD SETTER this pr ocedure are in the results section. BACTERIA / INES STAT 07/06/2021 11:15 Resul ts for CULTURE, BLOOD AM WOOD SETTER this procedur e are in the results section. DX CHEST PORTABLE 1 RAD - Semiurgent 07/06/2021 10:58 Results for VIEW (Fast; most ED AM WOOD SETTER this procedur e patients; some are in the inpatients) results section. SARS COV-2,INFLUENZA STAT 07/06/2021 10:51 Res ults for A/B,RSV,PCR, V AM WOOD SETTER this procedur e are in the results section. documented in this encounter Results Bacterial Culture, Aerobic + Susc, Urine (07/06/2021 11:59 AM WOOD SETTER) [facility] gist Method Time Signature Urine Culture No growth 07/07/2021 MKTO after 1 day 11:49 AM WOOD SETTER of incubation. Specimen Anatomical Collection Method Collection Time Receive d Time (Source) Location / / Volume Laterality Urine (Urine, 07/06/2021 11:59 07/06/2021 Midstream) AM WOOD SETTER 11:59 AM WOOD SETTER Comment: Specimen Source Site: Urine Juan Dang M.D. LAB MICROBIOLOGY - GENERAL O RDERABLES Performing Organization Address City/State/ZIP Code Phon e Number [facility]- [address] [place] [address] [place] [address] [address] (ABNORMAL) Urinalysis with Microscopic: Urine, Midstream (07/06/2021 11:54 AM WOOD SETTER) Analysis Performed At [facility] logist Time Signature Source Urine, Urine, 07/06/2021 MKTO Midstream 12:04 PM WOOD SETTER Clarity Clear Clear 07/06/2021 MKTO 12:04 PM WOOD SETTER Color Priscilla 07/06/2021 MKTO 12:04 PM WOOD SETTER Comment: ----REFERENCE VALUE---- Colorless Yellow Priscilla Blood Negative Negative 07/06/2021 12:04 PM WOOD SETTER MKTO Nitrite Negative Negative 07/06/2021 12:04 PM WOOD SETTER MKTO Leukocyte Esterase Trace (A) Negative 07/06/2021 12:[address] MKTO Protein Negative mg/dL 07/06/2021 12:04 PM WOOD SETTER MKTO Comment: ----REFERENCE VALUE---- Negative Trace Glucose Negative Negative mg/dL 07/06/2021 12:04 PM WOOD SETTER M KTO Ketone Negative Negative mg/dL 07/06/2021 12:04 PM WOOD SETTER M KTO Bilirubin Moderate (A) Negative 07/06/2021 12:04 PM WOOD SETTER MKT O pH 7.0 5.0 - 8.0 07/06/2021 12:04 PM WOOD SETTER MKTO Specific [place] 1.020 1.001 - 1.035 07/06/2021 12:04 PM WOOD SETTER MKTO Urobilinogen 1.0 0.2 - 1.0 mg/dL 07/06/2021 12:[address] MKTO White Blood Cells None Seen /hpf 07/06/2021 12:08 PM CS T MKTO Comment: ----REFERENCE VALUE---- Males: 0-3 Females: 0-10 Unknown: 0-10 Red Blood Cells None Seen 0 - 2 /hpf 07/06/2021 12:08 PM WOOD SETTER MKTO Hyaline Casts 1-3 /lpf 07/06/2021 12:08 PM WOOD SETTER MK TO Specimen Anatomical Collection Method Collection Time Receive d Time (Source) Location / / Volume Laterality Urine (Urine, 07/06/2021 11:54 07/06/2021 Midstream) AM WOOD SETTER 11:59 AM WOOD SETTER Juan Dang M.D. LAB URINE ORDERABLES Performing Organization Address [facility] Phon e Number [facility]- [address] [place] [phone] [place] [address] System in [place] [address] [place] [address] Bacteria / Ines Culture, Blood #2 (07/06/2021 11:27 AM WOOD SETTER) [facility] gist Method Time Signature Bacteria/Adriana No growth 07/11/2021 MKTO da Culture, after 5 12:05 PM WOOD SETTER Blood day/s of incubation. Specimen (Source) Anatomical Collection Method Collection Time Re ceived Time Location / / Volume Laterality Blood (Blood, 07/06/2021 11:27 07/06/2021 Peripheral Draw) AM WOOD SETTER 11:30 AM CS T Comment: Specimen Source Site: Blood Juan Dang M.D. LAB MICROBIOLOGY - GENERAL O RDERABLES Performing Organization Address [facility] Phon e Number [facility]- [address] [place] [address] [place] [address] (ABNORMAL) Morphology Evaluation (07/06/2021 11:21 AM WOOD SETTER) Patholo gist Method Time Signature RBC Morphology See Specific 07/06/2021 MKTO Findings 12:08 PM WOOD SETTER PLT Estimate Decreased (A) Adequate 07/06/2021 MKTO 12:08 PM WOOD SETTER Acanthocytes Marked (A) 07/06/2021 MKTO 12:08 PM WOOD SETTER Polychromasia Slight (A) Not Seen 07/06/2021 MKTO 12:08 PM WOOD SETTER Specimen Anatomical Collection Method Collection Time Receive d Time (Source) Location / / Volume Laterality Blood 07/06/2021 11:21 07/06/2021 AM WOOD SETTER 11:30 AM WOOD SETTER Juan Dang M.D. LAB BLOOD ADD-ON Performing Organization Address City/[facility]/ZIP [facility] Phon e Number [address] [address] [place] [address] [address] (ABNORMAL) Lactate, B (07/06/2021 11:21 AM WOOD SETTER) P athologist Signature Lactate, B 2.4 (H) 0.5 - 2.2 07/06/2021 MKTO mmol/L 11:33 AM WOOD SETTER Specimen Anatomical Collection Method Collection Time Receive d Time (Source) Location / / Volume Laterality Blood 07/06/2021 11:21 07/06/2021 AM WOOD SETTER 11:30 AM WOOD SETTER Juan Dang M.D. LAB BLOOD NON ADD-ON Performing Organization Address City/[facility] Phon e Number [address] [address] [place] [address] (ABNORMAL) Comprehensive Metabolic Panel (07/06/2021 11:21 AM WOOD SETTER) Analysis Performed At Patho logist Time Signature Potassium, P 4.1 3.6 - 5.2 07/06/2021 MKTO mmol/L 11:55 AM WOOD SETTER Sodium, P 133 (L) 135 - 145 07/06/2021 MKTO mmol/L 11:55 AM WOOD SETTER Chloride, P 100 98 - 107 07/06/2021 MKTO mmol/L 11:55 AM WOOD SETTER Bicarbonate, P 21 (L) 22 - 29 07/06/2021 MKTO mmol/L 11:55 AM WOOD SETTER Anion Gap, P 12 7 - 15 07/06/2021 MKTO 11:55 AM WOOD SETTER BUN (Blood Urea 5 (L) 6 - 21 07/06/2021 MKTO Nitrogen), P mg/dL 11:55 AM WOOD SETTER Creatinine 0.55 (L) 0.59 - 07/06/2021 MKTO 1.04 mg/dL 11:55 AM WOOD SETTER eGFR-Black/Afri >90 >=60 07/06/2021 MKTO can Citizen Of [place] mL/min/BSA 11:55 AM WOOD SETTER Comment: ----ADDITIONAL INFORMATION---- Estimated GFR calculated using the 2009 CKD_EPI creatinine equation. eGFR Non-Black/ >90 >=60 mL/min/BSA 07/06/2021 11:55 AM WOOD SETTER MKTO Comment: ----ADDITIONAL INFORMATION---- Estimated GFR calculated using the 2009 CKD_EPI creatinine equation. Calcium, Total, P 9.2 8.6 - 10.0 mg/dL 07/06/2021 11:5 5 AM MKTO WOOD SETTER Glucose, P 97 70 - 140 mg/dL 07/06/2021 11:55 AM MKTO WOOD SETTER Protein, Total, P 5.8 (L) 6.3 - 7.9 g/dL 07/06/2021 11:55 AM MKTO WOOD SETTER Albumin, P 3.5 3.5 - 5.0 g/dL 07/06/2021 11:55 AM MKTO WOOD SETTER Aspartate Aminotransferase 71 (H) 8 - 43 U/L 07/06/2021 1 1:55 AM MKTO (AST), P WOOD SETTER Alkaline Phosphatase, P 173 (H) 35 - 104 U/L 07/06/2021 11 :55 AM MKTO WOOD SETTER Alanine Aminotransferase 26 7 - 45 U/L 07/06/2021 11: 55 AM MKTO (ALT), P WOOD SETTER Bilirubin, Total, P 7.0 (H) <=1.2 mg/dL 07/06/2021 11:55 A M MKTO WOOD SETTER Specimen Anatomical Collection Method Collection Time Receive d Time (Source) Location / / Volume Laterality Blood (Blood, 07/06/2021 11:21 07/06/2021 Venous) AM WOOD SETTER 11:30 AM WOOD SETTER Juan Dang M.D. LAB BLOOD ADD-ON Performing Organization Address City/State/ZIP Code Phon e Number [facility]- [address] [place] [address] [place] [address] System in [place] [address] [place] [address] (ABNORMAL) CBC with Differential, Blood (07/06/2021 11:21 AM WOOD SETTER) [facility] Method Time Signature Hemoglobin 7.3 (L) 11.6 - 07/06/2021 MKTO 15.0 g/dL 12:08 PM WOOD SETTER Hematocrit 22.1 (L) 35.5 - 07/06/2021 MKTO 44.9 % 12:08 PM WOOD SETTER Erythrocytes 2.02 (L) 3.92 - 07/06/2021 MKTO 5.13 12:08 PM WOOD SETTER x10(12)/L MCV 109.4 (H) 78.2 - 07/06/2021 MKTO 97.9 fL 12:08 PM WOOD SETTER RBC Distrib Width 13.6 12.2 - 07/06/2021 MKTO 16.1 % 12:08 PM WOOD SETTER Platelet Count 66 (L) 157 - 371 07/06/2021 MKTO x10(9)/L 12:08 PM WOOD SETTER Leukocytes 7.7 3.4 - 9.6 07/06/2021 MKTO x10(9)/L 12:08 PM WOOD SETTER Neutrophils 5.72 1.56 - 07/06/2021 MKTO 6.45 12:08 PM WOOD SETTER x10(9)/L Lymphocytes 1.14 0.95 - 07/06/2021 MKTO 3.07 12:08 PM WOOD SETTER x10(9)/L Monocytes 0.73 0.26 - 07/06/2021 MKTO 0.81 12:08 PM WOOD SETTER x10(9)/L Eosinophils 0.08 0.03 - 07/06/2021 MKTO 0.48 12:08 PM WOOD SETTER x10(9)/L Basophils 0.05 0.01 - 07/06/2021 MKTO 0.08 12:08 PM WOOD SETTER x10(9)/L Specimen Anatomical Collection Method Collection Time Receive d Time (Source) Location / / Volume Laterality Blood (Blood, 07/06/2021 11:21 07/06/2021 Venous) AM WOOD SETTER 11:30 AM WOOD SETTER Juan Dang M.D. LAB BLOOD ADD-ON Performing Organization Address [facility] Phon e Number [facility]- [address] [place] [address] [place] [address] Bacteria / Ines Culture, Blood #1 (07/06/2021 11:15 AM WOOD SETTER) [facility] Method Time Signature Bacteria/Adriana No growth 07/11/2021 [facility] da Culture, after 5 12:05 PM WOOD SETTER Blood day/s of incubation. Specimen (Source) Anatomical Collection Method Collection Time Re ceived Time Location / / Volume Laterality Blood (Blood, 07/06/2021 11:15 07/06/2021 Peripheral Draw) AM WOOD SETTER 11:30 AM CS T Comment: Specimen Source Site: Blood Juan Dang M.D. LAB MICROBIOLOGY - GENERAL O RDERABLES Performing Organization Address City/[facility] Phon e Number [facility]- [address] [place] [phone] [place] [address] DX Chest Portable 1 View (07/06/2021 10:58 AM WOOD SETTER) Anatomical Region Laterality Modality Chest, Thoracic RST LOS, Thoracic ARZ LOS, Thoracic N/A Digital Radiography FLA LOS Specimen (Source) Anatomical Collection Method Collection Time Re ceived Time Location / / Volume Laterality 07/06/2021 11:00 AM WOOD SETTER Impressions 07/06/2021 11:07 AM WOOD SETTER No acute radiographic abnormalities are demonstrated. Narrative 07/06/2021 11:07 AM WOOD SETTER EXAM: DX CHEST PORTABLE 1 VIEW COMPARISON: [...] radiographic abnormalities are demonstrated. Juan Dang M.D. IMG DIAGNOSTIC IMAGING PROCE DURES SARS CoV-2, Influenza A/B, RSV, PCR Symptomatic (07/06/2021 10:51 AM WOOD SETTER) [facility] Method Time Signature Influenza A, Undetected Undetected 07/06/2021 MKTO PCR 11:34 AM WOOD SETTER Comment: Influenza A viral RNA absent. Influenza B, PCR Undetected Undetected 07/06/2021 11:[address] MKTO Comment: Influenza B viral RNA absent. Respiratory Syncytial Virus, Undetected Undetected 022 11:34 AM WOOD SETTER MKTO PCR Comment: RSV RNA absent. ASWH-Xhukwofjuee-8, PCR Undetected Undetected 07/06/2021 11: 34 AM WOOD SETTER MKTO Comment: SARS-CoV-2 RNA absent. ?? ----ADDITIONAL INFORMATION---- This RT-PCR test using the Xpert Xpress SARS-CoV-2/Flu/RSV assay ([employer] performed on the [employer] DX systems has received Emergency Use Authorization (EU A) by the U.S. Food and Drug Administration. Performanc e characteristics were verified by [facility] inic in a manner consistent with CLIA requirements . Fact sheets for this Emergency Use Autho rization (EUA) assay can be found at the following link s: For Healthcare Providers: https://www.fda.gov/media/465041/downloa d For Patients: https://www.fda.gov/media/493154/downloa d Specimen Source Swab, Nasopharynx 07/06/2021 10:55 AM WOOD SETTER MKTO Specimen Anatomical Collection Method Collection Time Receive d Time (Source) Location / / Volume Laterality Varies 07/06/2021 10:51 07/06/2021 (Nasopharynx) AM WOOD SETTER 10:55 AM WOOD SETTER Juan Dang M.D. LAB MICROBIOLOGY - GENERAL O RDERABLES Performing Organization Address City/State/ZIP Code Phon e Number [facility]- [address] [place] [address] [place] [address] System in [place] [address] [place] [address] documented in this encounter Visit Diagnoses Diagnosis Fever Of Unknown Origin - Primary Cirrhosis Alcoholic (HCC) Hypertension Portal (HCC) documented in this encounter Administered Medications Inactive Administered Medications - up to 3 most recent administrations Medication Order MAR Action Action Date Dose Rate Site fentaNYL injection 50 mcg Given 07/06/2021 11:32 AM WOOD SETTER 50 mcg (SUBLIMAZE) 50 mcg, intravenous, Once, On 07/06/21 at 1110, For 1 dose sodium chloride 0.9 % injection 10 mL 10 mL, intravenous, As needed, line care, Starting on 07/06/21 at 1044, Peripheral Intravenous Catheter and Rapid Infusion Cat heter, prior to blood sampling, post blood transfusion or post blood samplin g sodium chloride 0.9 % injection 3 mL 3 mL, intravenous, As needed, line care, Starting on 07/06/21 at 1044, Prior to and following infusion and between multi ple consecutive infusions: sodium chloride 0.9 % injection sodium chloride 0.9 % injection 3 mL 3 mL, intravenous, Every 12 hours scheduled, First dos e on 07/06/21 at 2100, Peripheral Intravenous Catheter and Rapi d Infusion Catheter, when no infusion to maintain patency documented in this encounter Active and Recently Administered Medications Times are shown in WOOD SETTER. Scheduled Medication Order 07/04/2021 07/05/2021 07/06/2021 fentaNYL injection 50 mcg (SUBLIMAZE) (COMPLETED) 1132 (Given - Provider: Roseline Solorzano R.N.) 50 mcg, intravenous, Once, On Wed07/06/21 at 1110, For 1 dose sodium chloride 0.9 % injection 3 mL 3 mL, intravenous, Every 12 hours schedu led, First dose on Wed07/06/21 at 2100, Peripheral Intravenous Catheter and Rapid Infusion Catheter, when no infusion to maintain patency PRN Medication Order 07/04/2021 07/05/2021 07/06/2021 sodium chloride 0.9 % injection 10 mL 10 mL, intravenous, As needed, line care , Starting on 07/06/21 at 1044, Peripheral Intravenous Catheter and Rapid Infusion Catheter, prior to blood sampling, post blood transfusion or post blood sampling sodium chloride 0.9 % injection 3 mL 3 mL, intravenous, As needed, line care, Starting on 07/06/21 at 1044, Prior to and following infusion and between multiple consecutive infusions: sodium chloride 0.9 % injection documented in this encounter Additional Health Concerns Infection Onset Date Last Indicated Resolved Time COVID19 Pending 07/06/2021 07/06/2021 07/06/2021 11:34 AM WOOD SETTER documented as of this encounter Care Teams Paste Maker Relationship Specialty Start Date End Date Elsewhere, Pcp PCP - General Family Medicine 03/10/20 11/30/21 Ervin Schroeder MD Referring Provider Family Medicine 03/24/[address] [place] [phone] documented as of this encounter
--- OUTSIDE RECORDS SUMMARY | 2022-01-31 04:33 | XMS_ITS | Encounter Summary ---
:1990 Author Organization [facility] Address [address] [place] [address] Care Team Providers Name Role Phone Elsewhere, Pcp Primary Care Provider Unavailable Encounter Details Date Type Department Care Team Description 05/23/2021 Clinical Communication Department of Felicita Spicer Gastroenterology in [place], [place] [phone] [facility]5 [facility] ([facility]) [place] [address] Social History Tobacco Use Types Packs/Day [...] do you attend jainism or Never 2021 islam services? 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 - 05/23/2021 2:26 PM CST Received a message from the patient who states she is a patient of eKrry Naranjo for Cirrhosis and she has only seen her once so far. But she did have some questions as she has a cold and she was under the impression that she should avoid all ibuprofen and tylenol. Driver Starting Gate did inform her that often withliver disease the recommendations are to avoid all NSAIDs but that tylenol can be used in moderationas needed. She states she was just wondering as lots of the cold medications do contain tylenol and she just wanted to be sure it was okay for her to take before using any of the OTC cold medications. She also asked newswriter to pass along to Kerry as there [...] She wonders if this could have contributed. Driver Starting Gate informed patient I would get all her questions to the provider and update her with her response regarding the cold medication. She had no further questions at this time. OMER ACCOUNT TECHNICIAN documented in this encounter Plan of Treatment Upcoming Encounters Date Type Specialty Care Team Description Office Visit Community Internal Neda, 2 Medicine Vernell Perez [address] [place] [phone] Appointment Radiology Matthew Jerome 2 Y, M.B.B.SSuma, Lilian [address] [place] [phone] Hospital Gastroenterology and Matthew Jerome 2 Encounter Hepatology Joshua RodriguezB.BSumaSSuma, Lilian [address] [place] [phone] Surgery Gastroenterology and Matthew Jerome ESOPHAG OGASTRODUODENOSCOPY 2 Hepatology Y M.B.B.SSuma, Lilian [address] [place] [phone] Telemedicine Transplant 2 Lab Laboratory Medicine Karin, Olinda Gannon M.D., Ph.D. [address] [place] [phone] Lab Laboratory Medicine Olinda Frazier M.D., Ph.D. [address] [place] [phone] Office Visit Transplant Olinda Frazier M.D., Ph.D. [address] [place] [phone] Appointment Radiology Matthew Jerome 2 Y, M.B.B.SSuma, MJules [address] [place] [phone] Appointment Gastroenterology and Olinda Silver Hepatology Yue Burciaga M.D. [address] [place] [address] Office Visit Gastroenterology and Matthew Jerome 2 Hepatology Tyrell Rodriguez M.D. [address] [place] [phone] Appointment Radiology Matthew Jerome 2, M.B.B.S., M.D. [address] [place] [phone] Scheduled Procedures Name Priority Associated Diagnoses Date/Time ESOPHAGOGASTRODUODENOSCOPY Cirrhosis Alc oholic (HCC) 02/10/2022 8:45 AM CDT Hypertension Portal (HCC) documented as of this encounter Visit Diagnoses Not on filedocumented in this encounter Care Teams Stemhole Borer And Topper Relationship Specialty Start Date End Date Elsewhere, Pcp PCP - General Family Medicine 03/10/20 11/30/21 Ervin Schroeder MD Referring Provider Family Medicine 03/24/[address] [place] [address] documented as of this encounter
--- OUTSIDE RECORDS SUMMARY | 2022-01-31 04:33 | XMS_ITS | Encounter Summary ---
:1990 Author Organization [facility] Address [address] [place] [address] Care Team Providers Name Role Phone Elsewhere, Pcp Primary Care Provider Unavailable Encounter Details Date Type Department Care Team Description 06/30/2021 Hospital Encounter Department of Rut Molina Alcoholic Laboratory [facility] ([facility]) Medicine, Specialty P.A.-C., M.S . [facility], in [address] [address] [place], [place] [phone] (Work) [phone] Social History Tobacco Use Types Packs/Day Years [...] or relatives? How often do you attend scientologist or Never 2021 sabianist services? Do you belong to any clubs or No 07/17/2021 organizations such as scientologist groups, unions, fraPVPower or athletic groups, or school groups? How [...] at Date Recorded Female 04/12/2021 7:39 PM ASSET PROTECTION DETECTIVE documented as of this encounter Medications at [...] Miscellaneous Notes Result Encounter Note - Kerry Naranjo, YARITZA, C.N.P., M.S.N. - 07/01/2021 12:02 PM CST Prolonged INR of 2.3 has been addressed-patient will have 2 units of FFP transfusion followed by repeat INR on 07/02/2021 prior to her scheduled upper GI endoscopy. The endoscopist who will be performingher upper GI endoscopy has been notified. T PROTECTION DETECTIVE documented in this encounter Plan of Treatment Upcoming Encounters Date Type Specialty Care Team Description Office Visit Community Internal [facility], 2 Medicine Vernell Perez [address] [place] [phone] Appointment Radiology [facility] 2 Y, M.B.B.S., MSumaDSuma [address] [place] [phone] Hospital Gastroenterology and [facility] 2 Encounter Hepatology YElizabeth.B.B.S., MJules [address] [place] [phone] Surgery Gastroenterology and [facility] ESOPHAG OGASTRODUODENOSCOPY 2 Hepatology YElizabeth.B.B.S., MJules [address] [place] [phone] Telemedicine Transplant 2 Lab Laboratory Medicine Karin, 2 Adeline Gannon M.D., Ph.D. [address] [place] [phone] Lab Laboratory Medicine Karin, 2 Adeline Gannon M.D., Ph.D. [address] [place] [phone] Office Visit Transplant Karin, 2 Adeline Gannon M.D., Ph.D. [address] [place] [phone] Appointment Radiology Matthew Jerome 2 YVikBGraeme, Lilian [address] [place] [phone] Appointment Gastroenterology and Adrianne, 2 Hepatology Yue Burciaga M.D. [address] [place] [phone] Office Visit Gastroenterology and Matthew Jerome 2 Hepatology Joshua RodriguezB.BLilian Bedolla [address] [place] [phone] Appointment Radiology Matthew Jerome 2 YJoshuaB.B.Kath, Lilian [address] [place] [phone] Scheduled Procedures Name Priority Associated Diagnoses Date/Time ESOPHAGOGASTRODUODENOSCOPY Cirrhosis Alc oholic (HCC) 02/10/2022 8:45 AM CDT Hypertension Portal (HCC) documented as of this encounter Procedures Procedure Name Priority Date/Time Associated Comments Diagnosis PROTHROMBIN TIME Routine 06/30/2021 2:27 PM Cirrhosis Alcoholi c Results for this (PT), P ASSET PROTECTION DETECTIVE (HCC) procedure are i n the results section. documented in this encounter Results (ABNORMAL) Prothrombin Time (PT) (06/30/2021 2:27 PM ASSET PROTECTION DETECTIVE) [facility] Method Time Signature Prothrombin 26.7 (H) 9.4 - 12.5 06/30/2021 MKTO Time, P sec 3:02 PM ASSET PROTECTION DETECTIVE INR 2.3 0.9 - 1.1 06/30/2021 MKTO 3:02 PM ASSET PROTECTION DETECTIVE Comment: ----ADDITIONAL INFORMATION---- Standard intensity warfarin therapeutic range: 2.0 to 3.0 ?? High intensity warfarin therapeutic rang e: 2.5 to 3.5 Specimen Anatomical Collection Method Collection Time Receive d Time (Source) Location / / Volume Laterality Blood (Blood, 06/30/2021 2:27 PM 06/30/19 2:46 Venous) ASSET PROTECTION DETECTIVE PM ASSET PROTECTION DETECTIVE Authorizing Provider Result Woodrow Molina P.A.-C. M.S. LAB BLOOD ADD-ON Performing Organization Address City/State/ZIP Code Phon e Number [facility]- [address] [place] [address] [place] [address] System in [address] documented in this encounter Visit Diagnoses Diagnosis Cirrhosis Alcoholic (HCC) Cirrhosis Alcoholic (HCC) Hypertension Portal (HCC) documented in this encounter Additional Health Concerns Infection Onset Date Last Indicated Resolved Time COVID19 Pending 06/30/2021 06/30/2021 06/30/2021 10:43 PM ASSET PROTECTION DETECTIVE documented as of this encounter Care Teams Sole Rounding Machine Operator Relationship Specialty Start Date End Date Elsewhere, Pcp PCP - General Family Medicine 03/10/20 11/30/21 Ervin Schroeder MD Referring Provider Family Medicine 03/24/211979 [address] [place] [address] documented as of this encounter
--- OUTSIDE RECORDS SUMMARY | 2022-01-31 04:33 | XMS_ITS | Encounter Summary ---
:1990 Author Organization [facility] Address [address] [place] [address] Care Team Providers Name Role Phone Elsewhere, Pcp Primary Care Provider Unavailable Encounter Details Date Type Department Care Team Description 07/06/2021 Orders Only Department of Gastroenterology Jennifer Fish, in [place], [facility] M.B.B.S. [address] [facility] 1025 [place] [address] [place], [place] [phone] ( rk) Social History Tobacco Use [...] do you attend presybeterian or Never 2021 advent services? Do you [...] or slept in a chcf (including now)? 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 [address] [place] [phone] Surgery Gastroenterology and Matthew Jerome ESOPHAG OGASTRODUODENOSCOPY 2 Hepatology Tyrell Rodriguez, Lilian [address] [place] [phone] Telemedicine Transplant 2 Lab Laboratory Medicine Olinda Frazier M.D., Ph.D. [address] [place] [phone] Lab Laboratory Medicine Olinda Frazier M.D., Ph.D. [address] [place] [phone] Office Visit Transplant Karin, Olinda Gannon M.D., Ph.D. [address] [place] [phone] Appointment Radiology Matthew Jerome 2 YVikBSumaSSuma, Lilian [address] [place] [phone] Appointment Gastroenterology and Adrianne, 2 Hepatology Yue Burciaga M.D. [address] [place] [phone] Office Visit Gastroenterology and Matthew Jeroem 2 Hepatology YJoshuaBSumaB.SLilian Moise [address] [place] [phone] Appointment Radiology Matthew Jerome 2 YElizabeth.B.B.SLilian Moise [address] [place] [phone] Scheduled Procedures Name Priority Associated Diagnoses Date/Time ESOPHAGOGASTRODUODENOSCOPY Cirrhosis Alc oholic (HCC) 02/10/2022 8:45 AM CDT Hypertension Portal (HCC) documented as of this encounter Visit Diagnoses Not on filedocumented in this encounter Additional Health Concerns Infection Onset Date Last Indicated Resolved Time COVID19 Pending 07/06/2021 07/06/2021 07/06/2021 11:34 AM TRANSITIONS MANAGER documented as of this encounter Care Teams Rn Lpn Cna Relationship Specialty Start Date End Date Elsewhere, Pcp PCP - General Family Medicine 03/10/20 11/30/21 Ervin Schroeder MD Referring Provider Family Medicine 03/24/[address] [place] [address] documented as of this encounter
--- OUTSIDE RECORDS SUMMARY | 2022-01-31 04:33 | XMS_ITS | Encounter Summary ---
:1990 Author Organization [facility] Address [address] [place] [address] Care Team Providers Name Role Phone Elsewhere, Pcp Primary Care Provider Unavailable Encounter Details Date Type Department Care Team Description 05/06/2021 Clinical Communication Department of Kerry Naranjo Gastroenterology in [place], [place] M.S.N., R.N. 1025 [facility] 1025 [place] [address] [place], [place] [phone] Social History Tobacco Use Types Packs/Day [...] do you attend faith or Never 2021 church services? 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 documented as of this encounter Plan of Treatment Upcoming Encounters Date Type Specialty Care Team Description [facility] 2 Medicine Vernell Perez [address] [place] [phone] Appointment Radiology Matthew Jerome 2 YVikBGraeme, Lilian [address] [place] [phone] Hospital Gastroenterology and Matthew Jerome 2 Encounter Hepatology Tyrell Rodriguez, Lilian [address] [place] [phone] Surgery Gastroenterology and Matthew Jerome ESOPHAG OGASTRODUODENOSCOPY 2 Hepatology Vik RodriguezBGraeme, Lilian [address] [place] [phone] Telemedicine Transplant 2 Lab Laboratory Medicine Karin Olinda Gannon M.D., Ph.D. [address] [place] [phone] Lab Laboratory Medicine SaraOlinda rondon Adeline Gannon M.D., Ph.D. [address] [place] [phone] Office Visit Transplant Karin Olinda Gannon M.D., Ph.D. [address] [place] [phone] Appointment Radiology Matthew Jerome 2 YJoshuaB.B.SSuma, Lilian [address] [place] [phone] Appointment Gastroenterology and Adrianne, 2 Hepatology Yue Burciaga M.D. [address] [place] [phone] Office Visit Gastroenterology and Matthew Jerome 2 Hepatology Elizabeth Rodriguez.B.B.SSuma, Lilian [address] [place] [phone] Appointment Radiology Matthew Jerome 2 Y M.B.B.SSuma, MJules [address] [place] [phone] Scheduled Procedures Name Priority Associated Diagnoses Date/Time ESOPHAGOGASTRODUODENOSCOPY Cirrhosis Alc oholic (HCC) 02/10/2022 8:45 AM CDT Hypertension Portal (HCC) documented as of this encounter Visit Diagnoses Not on filedocumented in this encounter Care Teams Sales Development Representative Relationship Specialty Start Date End Date Elsewhere, Pcp PCP - General Family Medicine 03/10/20 11/30/21 Ervin Schroeder MD Referring Provider Family Medicine 03/24/[address] [place] [phone] documented as of this encounter
--- OUTSIDE RECORDS SUMMARY | 2022-01-31 04:33 | XMS_ITS | Encounter Summary ---
:1990 Author Organization [facility] Address [address] [place] [address] Care Team Providers Name Role Phone Elsewhere, Pcp Primary Care Provider Unavailable Encounter Details Date Type Department Care Team Description 06/26/2021 Clinical Communication Department of Jesse Gastroenterology in [place], [place] P.Jim, M.S. [address] [facility] 1025 [place] [address] [place], [place] [phone] Social History Tobacco Use Types Packs/Day [...] do you attend hoahaoism or Never 2021 methodist services? 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 - 06/26/2021 3:16 PM MONORAIL OPERATOR Could you put in an INR check for this patient? She will be having her EGD rescheduled per Dr. Paul.Last INR was 2.7 and has not been rechecked recently. If she has the procedure done in our soonest opening, she will need to have the INR drawn tomorrow (06-27-21) or Wednesday (06-30-21). Thank you for your help. Paty RAIL OPERATOR documented in this encounter Plan of Treatment Upcoming Encounters Date Type Specialty Care Team Description Office Visit Community Internal Carlos, Medicine Vernell Perez [address] [place] [phone] Appointment Radiology Matthew Jerome 2 Y, VikB.SLilian Moise [address] [place] [phone] Hospital Gastroenterology and [facility], Matthew 2 Encounter Hepatology Joshua RodriguezBSumaBGraeme, Lilian [address] [place] [phone] Surgery Gastroenterology and Mousa, Matthew ESOPHAG OGASTRODUODENOSCOPY 2 Hepatology Joshua RodriguezB.B.SSuma, Lilian [address] [place] [phone] Telemedicine Transplant 2 Lab Laboratory Medicine Karin, 2 Adeline Gannon M.D., Ph.D. [address] [place] [phone] Lab Laboratory Medicine Karin, 2 Adeline Gannon M.D., Ph.D. [address] [place] [phone] Office Visit Transplant Karin, 2 Adeline Gannon M.D., Ph.D. [address] [place] [phone] Appointment Radiology [facility], Matthew 2 Elizabeth Rodriguez.B.B.SSuma, Lilian [address] [place] [phone] Appointment Gastroenterology and Adrianne, 2 Hepatology Yue Burciaga M.D. [address] [place] [phone] Office Visit Gastroenterology and Matthew Jerome 2 Hepatology Y, M.B.B.S., Lilian 1025 [place] [phone] Appointment Radiology Matthew Jerome 2 Tyrell Rodriguez, Lilian [address] [place] [phone] Scheduled Procedures Name Priority Associated Diagnoses Date/Time ESOPHAGOGASTRODUODENOSCOPY Cirrhosis Alc oholic (HCC) 02/10/2022 8:45 AM CDT Hypertension Portal (HCC) documented as of this encounter Visit Diagnoses Not on filedocumented in this encounter Care Teams Hands And Dial Inspector Relationship Specialty Start Date End Date Elsewhere, Pcp PCP - General Family Medicine 03/10/20 11/30/21 Ervin Schroeder MD Referring Provider Family Medicine 03/24/[address] [place] [address] documented as of this encounter
--- OUTSIDE RECORDS SUMMARY | 2022-01-31 04:34 | XMS_ITS | Encounter Summary ---
:1990 Author Organization [facility] Address [address] [place] [address] Care Team Providers Name Role Phone Elsewhere, Pcp Primary Care Provider Unavailable Reason for Referral Outpatient (Routine) - Closed Specialty Diagnoses / Referred By Contact Referred To Procedures Contact Gastroenterology Kerry Elder [facility] Hepatology Elizabeth VIGIL.S.N., R.N. [address] [place] [phone] Referral ID Status Reason Start Date Expiration Date Visits Requ ested Visits Authorized [id number] Closed 04/17/2021 04/17/2022 1 1 IPLE GAMES DEALER Reason for Visit Outpatient (Routine) - Closed Specialty Diagnoses / Referred By Contact Referred To Procedures Contact Kerry Mosquera [facility] Hepatology Elizabeth VIGIL.S.N., R.N. [address] [place] [address] Referral ID Status Reason Start Date Expiration Date Visits Requ ested Visits Authorized [id number] Closed 03/15/2021 03/15/2022 1 1 Encounter Details Date Type Department Care Team Description 04/17/2021 Office Visit Department of Kerry Naranjo Cirrhosis Alc oholic (HCC) (Primary Dx); Gastroenterology in S, RETAIL PROPERTY MANAGER, Thromboc ytopenia (HCC); [place], [place] M.S.N., R.N. Splenomegaly Acquired; [address] [facility] [address] 1025 [facility] Deficiency Vitamin D; [place] [address] [place], [place] Deficiency Vitamin A; [phone] Hypertension Portal (HCC); [phone] Ascites; (Work) Jaundice; [phone] Malnutrition Pr otein-Calorie Unspecified (HCC) (Fax) Social [...] do you attend sikh or Never 2021 baptist services? 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 Female 04/12/2021 7:39 PM MULTIPLE GAMES DEALER documented as of this encounter Last Filed Vital Signs Vital Sign Reading Time Taken Comments Blood Pressure 100/60 04/17/2021 3:20 PM MULTIPLE GAMES DEALER Pulse 80 04/17/2021 3:20 PM MULTIPLE GAMES DEALER Temperature - - Respiratory Rate - - Oxygen Saturation - - Inhaled Oxygen Concentration - - Weight 50.3 kg (110 lb 14.3 oz) 04/17/2021 3:20 PM MULTIPLE GAMES DEALER Height 157.5 cm (5' 2.01) 04/17/2021 3:20 PM MULTIPLE GAMES DEALER Body Mass Index 20.28 04/17/2021 3:20 PM MULTIPLE GAMES DEALER documented in this encounter Patient Instructions Patient [...] red or purple colored beverages, Jell-O, popsicles *driver/merchandiser needed day of procedure due to sedation IPLE GAMES DEALER documented in this encounter Progress Notes Kerry Naranjo APRN, C.NLala., M.S.N. - 04/17/2021 3:30 PM CST Kerry Naranjo APRN, C.N.P., M.S.N. [address] [place] [phone] Patient Name: Catia Carias Date of : [...] primary care provider Dr. Ervin Schroeder, from [facility] in [facility]; phone [phone], . She stateshe prescribed vitamin-D for GERD [...] She also was instructed to contact her [facility] to sign BIANKA as unable [...] APRN, C.N.Shanita., M.S.N. Gastroenterology and Hepatology [facility] IPLE GAMES DEALER documented in this encounter Plan of Treatment Upcoming Encounters Date Type Specialty Care Team Description Office Visit [facility] Internal [facility], 2 Medicine Vernell Perez [address] [place] [address] ADI Chua [phone] Appointment Radiology Matthew Jerome 2 Y M.B.B.SSuma, Lilian [address] [place] [phone] Hospital Gastroenterology and Mousa, Matthew 2 Encounter Hepatology Joshua RodriguezBSumaBLilian Bedolla [address] [place] [phone] Surgery Gastroenterology and [facility] [place] ESOPHAG OGASTRODUODENOSCOPY 2 Hepatology Joshua RodriguezB.BLilian Bedolla [address] [place] [phone] Telemedicine Transplant 2 Lab Laboratory Medicine Olinda Frazier M.D., Ph.D. [address] [place] [phone] Lab Laboratory Medicine Olinda Frazier M.D., Ph.D. [address] [place] [phone] Office Visit Transplant Olinda Frazier M.D., Ph.D. [address] [place] [phone] Appointment Radiology Matthew Jerome 2 YElizabeth.B.B.SLilian Moise [address] [place] [phone] Appointment Gastroenterology and Adrianne, 2 Hepatology Yue Burciaga M.D. [address] [place] [phone] Office Visit Gastroenterology and LuisMatthew abdul 2 Hepatology Tyrell Rodriguez M.D. [address] [place] [phone] Appointment Radiology LuisMatthew abdul 2 Tyrell Rodriguez M.D. [address] [place] [phone] Scheduled Procedures Name Priority Associated Diagnoses Date/Time [...] (HCC) Ascites Jaundice Malnutrition Protein-Calorie Unspecified (HCC) Cirrhosis Alcoholic (HCC) Hypertension Portal (HCC) documented in this encounter Care Teams Web Art Director Relationship Specialty Start Date End Date Elsewhere, Pcp PCP - General Family Medicine 03/10/20 11/30/21 Ervin Schroeder MD Referring Provider Family Medicine 03/24/[address] [place] [address] documented as of this encounter
--- OUTSIDE RECORDS SUMMARY | 2022-01-31 04:34 | XMS_ITS | Encounter Summary ---
:1990 Author Organization [facility] Address [address] [place] [address] Care Team Providers Name Role Phone Elsewhere, Pcp Primary Care Provider Unavailable Encounter Details Date Type Department Care Team Description 04/18/2021 Clinical Communication Department of [facility] in [place], [place] M.S.N., R.N. [address] [facility] [address] [place] [address] [place], [place] [phone] Social History Tobacco Use Types Packs/Day [...] do you attend taoism or Never 2021 pentecostalism services? 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 to sign BIANKA as unable to see her laboratory records in Care everywhere. -EGD/MAC. MAC sedation as screening for varices with possible banding -GI follow-up one week after EGD RT SALES ASSISTANT documented in this encounter Plan of Treatment Upcoming Encounters Date Type Specialty Care Team Description Office Visit Community Internal [facility], 2 Medicine Vernell Perez [address] [place] [phone] Appointment Radiology Matthew Jerome 2 Tyrell Rodriguez M.D. [address] [place] [phone] [facility] Gastroenterology and Matthew Jerome 2 Encounter Hepatology Tyrell Rodriguez M.D. [address] [place] [phone] Surgery Gastroenterology and Matthew Jerome ESOPHAG OGASTRODUODENOSCOPY 2 Hepatology Vik RodriguezBLilian Bedolla [address] [place] [phone] Telemedicine Transplant 2 Lab Laboratory Medicine Karin, 2 Adeline Gannon M.D., Ph.D. [address] [place] [phone] Lab Laboratory Medicine Karin, 2 Adeline Gannon M.D., Ph.D. [address] [place] [phone] Office Visit Transplant Karin, 2 Adeline Gannon M.D., Ph.D. [address] [place] [phone] Appointment Radiology Matthew Jerome 2 YJoshuaB.B.Kath, Lilian [address] [place] [phone] Appointment Gastroenterology and [place], 2 Hepatology Yue Burciaga M.D. [address] [place] [phone] Office Visit Gastroenterology and Matthew Jerome 2 Hepatology Joshua RodriguezB.B.SLilian Moise [address] [place] [phone] Appointment Radiology Matthew Jerome 2 Y M.B.B.SLilian Moise [address] [place] [phone] Scheduled Procedures Name Priority Associated Diagnoses Date/Time ESOPHAGOGASTRODUODENOSCOPY Cirrhosis Alc oholic (HCC) 02/10/2022 8:45 AM CDT Hypertension Portal (HCC) documented as of this encounter Visit Diagnoses Not on filedocumented in this encounter Care Teams Label Printing Machinist Relationship Specialty Start Date End Date Elsewhere, Pcp PCP - General Family Medicine 03/10/20 11/30/21 Ervin Schroeder MD Referring Provider Family Medicine 03/24/[address] [place] [phone] documented as of this encounter
--- OUTSIDE RECORDS SUMMARY | 2022-01-31 04:35 | XMS_ITS | Encounter Summary ---
:1990 Author Organization [facility] Address [address] [place] [address] Care Team Providers Name Role Phone Elsewhere, Pcp Primary Care Provider Unavailable Reason for Referral Outpatient (Routine) - Closed Specialty Diagnoses / Referred By Contact Referred To Procedures Contact Gastroenterology and Kerry Naranjo, [facility] Hepatology YARITZA, M.S.N., R.N. [address] [place] [address] Referral ID Status Reason Start Date Expiration Date Visits Requ ested Visits Authorized [id number] Closed 03/15/2021 03/15/2022 1 1 BUILDER APPRENTICE Reason for Visit Auth/Cert Specialty Diagnoses / Procedures Referred By Contact Refer red To Contact Diagnoses Change Mental Status Liver failure Procedures Referral ID Status Reason Start Date Expiration Date Visits Requ ested Visits Authorized [id number] 1 1 Encounter Details Date Type Department Care Team Description 03/12/2021 - Hospital Encounter [facility] Antwan Lazo D.O. [address] [place] [phone] Change Mental Status (Primary Dx); 03/24/2021 [facility] Ulises Valle M.B.BSumaSSuma [address] [place] [address] Cirrhosis Alcoholic [facility]HCC) [facility] [address] [place] [phone] Floor [address] [place] [address] Social History Tobacco Use Types [...] do you attend anglican or Never 2021 scientology services? 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 documented as of this encounter Last Filed Vital Signs Vital Sign Reading Time Taken Comments Blood Pressure 114/84 03/24/2021 6:18 AM BODY BUILDER APPRENTICE Pulse 101 03/24/2021 6:18 AM BODY BUILDER APPRENTICE Temperature 37.5 ??C (99.5 ??F) 03/24/2021 6:18 AM BODY BUILDER APPRENTICE Respiratory Rate 16 03/23/2021 10:36 PM BODY BUILDER APPRENTICE Oxygen Saturation 97% 03/24/2021 6:18 AM BODY BUILDER APPRENTICE Inhaled Oxygen Concentration - - Weight 56.6 kg (124 lb 12.5 oz) 03/23/2021 6:35 AM BODY BUILDER APPRENTICE Height 157.5 cm (5' 2) 03/12/2021 6:15 AM BODY BUILDER APPRENTICE Body Mass Index 22.82 03/12/2021 6:15 AM BODY BUILDER APPRENTICE documented in this encounter Discharge Summaries Darian Thomas M.D., J.D. - 03/24/2021 8:11 AM CST DISCHARGE SUMMARY BRIEF OVERVIEW Discharge Hospital: Hospital: [facility] Discharge Provider: No att. providers found Primary Care Providers: Elsewhere, Pcp (General) No address on file Discharge Provider Team: [facility]) [facility] Primary Care Provider Phone Number: None Primary [...] on CT scan. Newly diagnosed PFO with krqrv-cf-unbo atrial shunt. Severe left atrial enlargement. Consider [...] consider having patient follow up with a senior power scheduler in the outpatient setting. MEDICATIONS CHANGED DURING [...] staffed with Dr. Guzman. Darian Thomas MD, [facility] Family Medicine Residency BUILDER APPRENTICE Associated attestation - Keerthi Guzman M.D. - 03/25/2021 7:48 AM BODY BUILDER APPRENTICE I saw the patient on the day [...] encounter Discharge Instructions Discharge Instr - Non [facility] Follow-UpsHope Keating - 03/24/2021 10:30 AM BODY BUILDER APPRENTICE Post Hospital follow-up Dr. Schroeder on: Monday, March 26 at 9:[address] [address] Gastroenterology and Hepatology consult with Dr. Kerry Naranjo on: April 17, 2021 at 3:15pm [address] [address] BUILDER APPRENTICE documented in this encounter Medications at Time [...] Cirrhosis Alcoholic (HCC) ASSESSMENT / PLAN ASSESSMENT welfare manager participated in bedside team rounds with bedside nurse Hope LEROY and Dr. Guzman. Patient was cleared to discharge Julissa Hart [facility] states there are no needs and no f/u needed for mental health as an outpatient. Dr. Guzman reports patient will be ready for discharge on 03-24-21. Patient will discharge to home on 03-24-21. S.O. will provide transportation at approximately 1200. PLAN 1. Care team reporting patient is expected to discharge home when medically stable. 2. There are no identified case work aide needs at this time. 3. employment agency manager will assist as needed and requested. Nola Marcos R.N. 03/24/21 BUILDER APPRENTICE Zenobia Dickson, Pharm.D., R.Ph. - 03/23/2021 4:13 [...] oral SBP prophylaxis Zenobia Dickson Pharm.D., R.Ph. BUILDER APPRENTICE Darian Thomas M.D., J.D. - 03/23/2021 7:25 [...] staffed with Dr. Guzman. Darian Thomas MD [facility] Residency BUILDER APPRENTICE Associated attestation - Keerthi Guzman M.D. - 03/23/2021 2:26 PM BODY BUILDER APPRENTICE I saw and evaluated the patient, participating [...] with Dr. Ram, and patient's significant other Lobito. Patient says she is doing a lot [...] insist that she saw a nurse and cell tender helper friend of hers, Stephanie. She says this [...] spent in counseling and coordination of care. BUILDER APPRENTICE Associated attestation - Desire Ram M.B.B.S., M.D. - 03/25/2021 11:28 PM BODY BUILDER APPRENTICE I saw and evaluated the patient, participating [...] staffed with Dr. Guzman. Darian Thomas MD [facility] Residency BUILDER APPRENTICE Associated attestation - Keerthi Guzman M.D. - 03/22/2021 3:19 PM BODY BUILDER APPRENTICE I saw and evaluated the patient, participating [...] Monitoring/Evaluation Monitoring: Meals/Supplement Intake,Weight Status,Mental Status/Confusion,Nausea/Vomiting/Diarrhea,Pertinent Labs BUILDER APPRENTICE Darian Thomas M.D., J.D. - 03/21/2021 12:16 [...] considered holdable if she decides to leave [place] --cont. Zyprexa 5 mg q.h.s. p.r.n. per [...] staffed with Dr. Guzman. Darian Thomas MD [facility] Residency BUILDER APPRENTICE Associated attestation - Keerthi Guzman M.D. - 03/21/2021 2:26 PM BODY BUILDER APPRENTICE I saw and evaluated the patient, participating [...] and happy to accept patient to the [facility] once medically stable --per psych, patient is [...] staffed with Dr. Guzman. Darian Thomas MD [facility] Residency BUILDER APPRENTICE Associated attestation - Keerthi Guzman M.D. - 03/20/2021 12:10 PM BODY BUILDER APPRENTICE I saw and evaluated the patient, participating [...] discharge: oral SBP prophylaxis Paco Shah, PharmD, [facility]. BUILDER APPRENTICE Bernarda Manning APRN, C.N.P., D.N.P. - 03/19/2021 [...] last night. He says these woman working [employer] and would not have been in the [...] Daily Given, 5 mg at 03/19 135 vvztqddnz-aawgqs-avixlqfeg 280-160-250 mg per packet 2 packet (PHOS-NAK) [...] considered holdable if she decides to leave [place] without a safe discharge plan in place. - Will continue to follow and reassess the need for inpatient psychiatry once she is more medically stable, and the encephalopathy has resolved. ?? ADMINISTRATIVE BILLING Total time is 35 minutes with greater than 25 minutes spent in counseling and coordination of care. BUILDER APPRENTICE Darian Thomas M.D., J.D. - 03/19/2021 1:41 [...] staffed with Dr. Guzman. Darian Thomas MD [facility] Residency BUILDER APPRENTICE Associated attestation - Keerthi Guzman M.D. - 03/19/2021 7:11 PM BODY BUILDER APPRENTICE I saw and evaluated the patient, participating [...] oral SBP prophylaxis Virginie Valerio, Pharm.D., R.Ph. BUILDER APPRENTICE Sofi Tomlin RDN, TALI - 03/18/2021 2:36 [...] not eaten yet this morning and encouraged communications writer to allow pt to rest as pt [...] 57 kg BMI (Calculated): 23 kg/m?? % [place] Body Weight: 108 % IBW Adjusted Body [...] EVALUATION: Nutrition Monitoring/Evaluation Monitoring: Meals/Supplement Intake,Nausea/Vomiting/Diarrhea,Pertinent Labs BUILDER APPRENTICE Paco Shah, Pharm.D., R.Ph. - 03/18/2021 11:03 [...] oral SBP prophylaxis Virginie Valerio, Pharm.D., R.Ph. BUILDER APPRENTICE Darian Thomas M.D., J.D. - 03/18/2021 10:08 [...] staffed with Dr. Valle. Darian Thomas MD [facility] Res[facility] BUILDER APPRENTICE Associated attestation - Ulises Valle M.B.B.S. - 03/20/2021 12:12 PM BODY BUILDER APPRENTICE I saw and evaluated the patient, participating [...] -- Take 50 mg by mouth daily. BUILDER APPRENTICE Junaid Cast M.D. - 03/17/2021 3:02 PM [...] M.B.B.S. Junaid Cast M.D. PGY1 [facility] - [facility] BUILDER APPRENTICE Associated attestation - Ulises Valle M.B.B.S. - 03/18/2021 6:06 PM BODY BUILDER APPRENTICE I saw and evaluated the patient, participating [...] Procedure Component Value - Date/Time Gram Stain [[id number]] Collected: 03/12/21 1546 Lab Status: Final result Specimen: Peritoneal Fluid Updated: 03/12/21 1822 Gram Stain No organisms seen. White blood cells present. Stain performed on concentrated cytospin preparation. Bacterial Culture, Anaerobic + Susc [[id number]] Collected: 03/12/21 1546 Lab Status: In process Specimen: Peritoneal Fluid Updated: 03/12/21 1548 Bacterial Culture, Aerobic + Susc [[id number]] Collected: 03/12/21 1546 Lab Status: Preliminary result Specimen: Peritoneal Fluid Updated: 03/13/21 1129 Bacterial Culture, Aerobic + Susc No growth to date Bacterial Culture, Aerobic + Susc [[id number]] Collected: 03/12/21 1234 Lab Status: Preliminary result Specimen: Pleural Fluid, Right Updated: 03/13/21 1133 Bacterial Culture, Aerobic + Susc No growth to date Bacterial Culture, Anaerobic + Susc [[id number]] Collected: 03/12/21 1234 Lab Status: In process Specimen: Pleural Fluid, Right Updated: 03/12/21 1308 Gram Stain [[id number]] Collected: 03/12/21 1234 Lab Status: Final result Specimen: Pleural Fluid, Right Updated: 03/12/21 1646 Gram Stain No organisms seen. White blood cells present. Stain performed on concentrated cytospin preparation. Gram Stain [[id number]] Collected: 03/12/21 1234 Lab Status: No result Specimen: Pleural Fluid, Right SARS Coronavirus-2 RNA, V Symptomatic [[id number]] Collected: 03/12/21 1100 Lab Status: Final result [...] was performed using the Aptima SARS-CoV-2 assay ([employer] on the ACS Biomarker System under emergency use authorization (EUA) by the U.S. Food and Drug Administration. Fact sheets for this EUA assay can be found at the following links: For Healthcare Providers: https://www.fda.gov/media/417069/download For Patients: https://www.fda.gov/media/763538/download Influenza A/B and RSV, PCR, Varies [[id number]] Collected: 03/12/21 1100 Lab Status: Final result Specimen: Varies from Nasopharynx Updated: 03/13/21 1155 Influenza A/B and RSV, Source Swab, Nasopharynx Influenza A, PCR Undetected Comment: Influenza A RNA absent. Influenza B, PCR Undetected Comment: Influenza B RNA absent. Respiratory Syncytial Virus, PCR Undetected Comment: RSV RNA absent. ----ADDITIONAL INFORMATION---- This test has been modified from the landscaper's instructions. Its performance characteristics were determined by [facility] in a manner consistent with CLIA requirements. This test has not been cleared or approved by the U.S. Food and Drug Administration. Bacteria / Raudel Culture, Blood #2 [[id number]] Collected: 03/12/21 0710 Lab Status: Preliminary result Specimen: Blood, Peripheral Draw Updated: 03/13/21 0805 Bacteria/Raudel Culture, Blood No growth to date. MRSA PCR, Nasal [[id number]] Collected: 03/12/21622 Lab Status: Final result Specimen: Swab from Nares Updated: 03/12/21 1050 MRSA Screen, Nasal by PCR Negative Hepatitis B Surface Antigen [[id number]] Collected: 03/12/21557 Lab Status: Final result Specimen: Blood, Peripheral Draw Updated: 03/12/21 07 HBs Antigen, S Nonreactive Comment: Biotin has been identified by the landscaper as a potential interfering substance. Higher concentrations of biotin may be found in multivitamins, hair/nail supplements, and workout supplements. If the result does not match clinical observations, repeat testing after patient refrains from the use of supplements for at least 12 hours. Hepatitis B Core IgM Ab [[id number]] Collected: 03/12/21557 Lab Status: Final result Specimen: Blood, Peripheral Draw Updated: 03/13/21911 HBc IgM Ab, S Negative Hepatitis A IgM Ab, Serum [[id number]] Collected: 03/12/21557 Lab Status: Final result Specimen: Blood, Peripheral Draw Updated: 03/13/2151 Hepatitis A IgM Ab, S Negative Comment: Result does not exclude the possibility of exposure to hepatitis A virus. Antibody level during early infection stage may be below the limit of detection of the assay. HCV Ab w/Reflex to HCV PCR, Serum [[id number]] Collected: 03/12/21557 Lab Status: Final result Specimen: Blood, Peripheral Draw Updated: 03/13/21 09 HCV Ab, S Negative Comment: Gozvns-ns-mxkorr ratio is <1.00. Bacteria / Raudel Culture, Blood #1 [[id number]] Collected: 03/12/21556 Lab Status: Preliminary result Specimen: [...] out given to hospitalist. Lizet Navarro M.D. BUILDER APPRENTICE Ulises Valle M.B.B.S. - 03/16/2021 5:30 PM [...] more details on the specifics ofthe plan. BUILDER APPRENTICE Kerry Naranjo APRN, C.N.P., M.S.N. - 03/16/2021 [...] ICU attending. Kerry Naranjo APRN, Katrin.Sera.Frances, M.S.N. BUILDER APPRENTICE Daron Cochran, D., R.Ph. - 03/16/2021 9:20 [...] Procedure Component Value - Date/Time Gram Stain [[id number]] Collected: 03/12/21 1541 Lab Status: Final result Specimen: Peritoneal Fluid Updated: 03/12/211821 Gram Stain No organisms seen. White blood cells present. Stain performed on concentrated cytospin preparation. Bacterial Culture, Anaerobic + Susc [[id number]] Collected: 03/12/21 1546 Lab Status: Preliminary result Specimen: Peritoneal Fluid Updated: 03/14/21 0523 Bacterial Culture, Anaerobic No growth to date. Bacterial Culture, Aerobic + Susc [[id number]] Collected: 03/12/21 1546 Lab Status: Preliminary result Specimen: Peritoneal Fluid Updated: 03/13/21 1129 Bacterial Culture, Aerobic + Susc No growth to date Bacterial Culture, Aerobic + Susc [[id number]] Collected: 03/12/21 1234 Lab Status: Preliminary result Specimen: Pleural Fluid, Right Updated: 03/13/21 1133 Bacterial Culture, Aerobic + Susc No growth to date Bacterial Culture, Anaerobic + Susc [[id number]] Collected: 03/12/21 1234 Lab Status: Preliminary result Specimen: Pleural Fluid, Right Updated: 03/14/21 0523 Bacterial Culture, Anaerobic No growth to date. Gram Stain [[id number]] Collected: 03/12/21 1234 Lab Status: Final result Specimen: Pleural Fluid, Right Updated: 03/12/21 1646 Gram Stain No organisms seen. White blood cells present. Stain performed on concentrated cytospin preparation. Gram Stain [[id number]] Collected: 03/12/21 1234 Lab Status: No result Specimen: Pleural Fluid, Right SARS Coronavirus-2 RNA, V Symptomatic [[id number]] Collected: 03/12/21 1100 Lab Status: Final result [...] was performed using the Aptima SARS-CoV-2 assay ([employer] on the [employer] Biomarker System under emergency use authorization (EUA) by the U.S. Food and Drug Administration. Fact sheets for this EUA assay can be found at the following links: For Healthcare Providers: https://www.fda.gov/media/973147/download For Patients: https://www.fda.gov/media/151644/download Influenza A/B and RSV, PCR, Varies [[id number]] Collected: 03/12/21 1100 Lab Status: Final result Specimen: Varies from Nasopharynx Updated: 03/13/21 1155 Influenza A/B and RSV, Source Swab, Nasopharynx Influenza A, PCR Undetected Comment: Influenza A RNA absent. Influenza B, PCR Undetected Comment: Influenza B RNA absent. Respiratory Syncytial Virus, PCR Undetected Comment: RSV RNA absent. ----ADDITIONAL INFORMATION---- This test has been modified from the landscaper's instructions. Its performance characteristics were determined by [facility] in a manner consistent with CLIA requirements. This test has not been cleared or approved by the U.S. Food and Drug Administration. Bacteria / Raudel Culture, Blood #2 [[id number]] Collected: 03/12/21 0710 Lab Status: Preliminary result Specimen: Blood, Peripheral Draw Updated: 03/16/21 0805 Bacteria/Raudel Culture, Blood No growth to date. MRSA PCR, Nasal [[id number]] Collected: 03/12/21 0623 Lab Status: Final result Specimen: Swab from Nares Updated: 03/12/21 1050 MRSA Screen, Nasal by PCR Negative Hepatitis B Surface Antigen [[id number]] Collected: 03/12/21557 Lab Status: Final result Specimen: Blood, Peripheral Draw Updated: 03/12/21 0744 HBs Antigen, S Nonreactive Comment: Biotin has been identified by the landscaper as a potential interfering substance. Higher concentrations of biotin may be found in multivitamins, hair/nail supplements, and workout supplements. If the result does not match clinical observations, repeat testing after patient refrains from the use of supplements for at least 12 hours. Hepatitis B Core IgM Ab [[id number]] Collected: 03/12/21557 Lab Status: Final result Specimen: Blood, Peripheral Draw Updated: 03/13/21911 HBc IgM Ab, S Negative Hepatitis A IgM Ab, Serum [[id number]] Collected: 03/12/21557 Lab Status: Final result Specimen: Blood, Peripheral Draw Updated: 11/11/21 0951 Hepatitis A IgM Ab, S Negative Comment: Result does not exclude the possibility of exposure to hepatitis A virus. Antibody level during early infection stage may be below the limit of detection of the assay. HCV Ab w/Reflex to HCV PCR, Serum [[id number]] Collected: 03/12/21 0558 Lab Status: Final result Specimen: Blood, Peripheral Draw Updated: 03/13/21 0925 HCV Ab, S Negative Comment: Kpzlox-ut-gnnngm ratio is <1.00. Bacteria / Raudel Culture, Blood #1 [[id number]] Collected: 03/12/21 0557 Lab Status: Preliminary result [...] oral SBP prophylaxis Virginie Valerio, Pharm.D., R.Ph. BUILDER APPRENTICE Lizet Navarro M.D. - 03/15/2021 1:19 PM [...] Procedure Component Value - Date/Time Gram Stain [[id number]] Collected: 03/12/21 1546 Lab Status: Final result Specimen: Peritoneal Fluid Updated: 03/12/21 1822 Gram Stain No organisms seen. White blood cells present. Stain performed on concentrated cytospin preparation. Bacterial Culture, Anaerobic + Susc [[id number]] Collected: 03/12/21 1546 Lab Status: In process Specimen: Peritoneal Fluid Updated: 03/12/21 1548 Bacterial Culture, Aerobic + Susc [[id number]] Collected: 03/12/21 1546 Lab Status: Preliminary result Specimen: Peritoneal Fluid Updated: 03/13/21 1129 Bacterial Culture, Aerobic + Susc No growth to date Bacterial Culture, Aerobic + Susc [[id number]] Collected: 03/12/21 1234 Lab Status: Preliminary result Specimen: Pleural Fluid, Right Updated: 03/13/21 1133 Bacterial Culture, Aerobic + Susc No growth to date Bacterial Culture, Anaerobic + Susc [[id number]] Collected: 03/12/21 1234 Lab Status: In process Specimen: Pleural Fluid, Right Updated: 03/12/21 1308 Gram Stain [[id number]] Collected: 03/12/21 1234 Lab Status: Final result Specimen: Pleural Fluid, Right Updated: 03/12/21 1646 Gram Stain No organisms seen. White blood cells present. Stain performed on concentrated cytospin preparation. Gram Stain [[id number]] Collected: 03/12/21 1234 Lab Status: No result Specimen: Pleural Fluid, Right SARS Coronavirus-2 RNA, V Symptomatic [[id number]] Collected: 03/12/21 1100 Lab Status: Final result [...] was performed using the Aptima SARS-CoV-2 assay ([employer] on the [employer] Biomarker System under emergency use authorization (EUA) by the U.S. Food and Drug Administration. Fact sheets for this EUA assay can be found at the following links: For Healthcare Providers: https://www.fda.gov/media/299432/download For Patients: https://www.fda.gov/media/551287/download Influenza A/B and RSV, PCR, Varies [[id number]] Collected: 03/12/21 1100 Lab Status: Final result Specimen: Varies from Nasopharynx Updated: 03/13/21 1155 Influenza A/B and RSV, Source Swab, Nasopharynx Influenza A, PCR Undetected Comment: Influenza A RNA absent. Influenza B, PCR Undetected Comment: Influenza B RNA absent. Respiratory Syncytial Virus, PCR Undetected Comment: RSV RNA absent. ----ADDITIONAL INFORMATION---- This test has been modified from the landscaper's instructions. Its performance characteristics were determined by [facility] in a manner consistent with CLIA requirements. This test has not been cleared or approved by the U.S. Food and Drug Administration. Bacteria / Raudel Culture, Blood #2 [[id number]] Collected: 03/12/21 0710 Lab Status: Preliminary result Specimen: Blood, Peripheral Draw Updated: 03/13/21 0805 Bacteria/Raudel Culture, Blood No growth to date. MRSA PCR, Nasal [[id number]] Collected: 03/12/21 0623 Lab Status: Final result Specimen: Swab from Nares Updated: 03/12/21 1050 MRSA Screen, Nasal by PCR Negative Hepatitis B Surface Antigen [[id number]] Collected: 03/12/21557 Lab Status: Final result Specimen: Blood, Peripheral Draw Updated: 03/12/21 0744 HBs Antigen, S Nonreactive Comment: Biotin has been identified by the landscaper as a potential interfering substance. Higher concentrations of biotin may be found in multivitamins, hair/nail supplements, and workout supplements. If the result does not match clinical observations, repeat testing after patient refrains from the use of supplements for at least 12 hours. Hepatitis B Core IgM Ab [[id number]] Collected: 03/12/21557 Lab Status: Final result Specimen: Blood, Peripheral Draw Updated: 03/13/21911 HBc IgM Ab, S Negative Hepatitis A IgM Ab, Serum [[id number]] Collected: 03/12/21557 Lab Status: Final result Specimen: Blood, Peripheral Draw Updated: 03/13/21950 Hepatitis A IgM Ab, S Negative Comment: Result does not exclude the possibility of exposure to hepatitis A virus. Antibody level during early infection stage may be below the limit of detection of the assay. HCV Ab w/Reflex to HCV PCR, Serum [[id number]] Collected: 03/12/21557 Lab Status: Final result Specimen: Blood, Peripheral Draw Updated: 03/13/21924 HCV Ab, S Negative Comment: Egnjhw-nt-pmcwvm ratio is <1.00. Bacteria / Raudel Culture, Blood #1 [[id number]] Collected: 03/12/21556 Lab Status: Preliminary result Specimen: [...] care time 35 min Lizet Navarro M.D. BUILDER APPRENTICE Kerry Naranjo APRN, C.N.P., M.S.N. - 03/15/2021 12:41 PM CST SUBJECTIVE Catia Carias reports having no nausea, vomiting and abdominal pain. Her symptoms are improving.She no longer is intubated, with extubated yesterday afternoon. Discussed with her need for follow-up in the GI clinic with trailhead maintenance worker; she is interested in that appointment I [...] Naranjo APRN, C.N.P., M.S.N. Gastroenterology and Hepatology [facility] BUILDER APPRENTICE Daron Cochran, DSuma, R.Ph. - 03/15/2021 9:05 [...] Procedure Component Value - Date/Time Gram Stain [[id number]] Collected: 03/12/211545 Lab Status: Final result Specimen: Peritoneal Fluid Updated: 03/12/21 182 Gram Stain No organisms seen. White blood cells present. Stain performed on concentrated cytospin preparation. Bacterial Culture, Anaerobic + Susc [[id number]] Collected: 03/12/21 154 Lab Status: Preliminary result Specimen: Peritoneal Fluid Updated: 03/14/21 0523 Bacterial Culture, Anaerobic No growth to date. Bacterial Culture, Aerobic + Susc [[id number]] Collected: 03/12/21 1546 Lab Status: Preliminary result Specimen: Peritoneal Fluid Updated: 03/13/21 1129 Bacterial Culture, Aerobic + Susc No growth to date Bacterial Culture, Aerobic + Susc [[id number]] Collected: 03/12/21 1234 Lab Status: Preliminary result Specimen: Pleural Fluid, Right Updated: 03/13/21 1133 Bacterial Culture, Aerobic + Susc No growth to date Bacterial Culture, Anaerobic + Susc [[id number]] Collected: 03/12/21 1234 Lab Status: Preliminary result Specimen: Pleural Fluid, Right Updated: 03/14/21 0523 Bacterial Culture, Anaerobic No growth to date. Gram Stain [[id number]] Collected: 03/12/21 1234 Lab Status: Final result Specimen: Pleural Fluid, Right Updated: 03/12/21 1646 Gram Stain No organisms seen. White blood cells present. Stain performed on concentrated cytospin preparation. Gram Stain [[id number]] Collected: 03/12/21 123 Lab Status: No result Specimen: Pleural Fluid, Right SARS Coronavirus-2 RNA, V Symptomatic [[id number]] Collected: 03/12/21 1100 Lab Status: Final result [...] was performed using the Aptima SARS-CoV-2 assay ([employer] on the [employer] Biomarker System under emergency use authorization (EUA) by the U.S. Food and Drug Administration. Fact sheets for this EUA assay can be found at the following links: For Healthcare Providers: https://www.fda.gov/media/626609/download For Patients: https://www.fda.gov/media/162787/download Influenza A/B and RSV, PCR, Varies [[id number]] Collected: 03/12/21 1100 Lab Status: Final result Specimen: Varies from Nasopharynx Updated: 03/13/21 1155 Influenza A/B and RSV, Source Swab, Nasopharynx Influenza A, PCR Undetected Comment: Influenza A RNA absent. Influenza B, PCR Undetected Comment: Influenza B RNA absent. Respiratory Syncytial Virus, PCR Undetected Comment: RSV RNA absent. ----ADDITIONAL INFORMATION---- This test has been modified from the landscaper's instructions. Its performance characteristics were determined by [facility] in a manner consistent with CLIA requirements. This test has not been cleared or approved by the U.S. Food and Drug Administration. Bacteria / Raudel Culture, Blood #2 [[id number]] Collected: 03/12/21709 Lab Status: Preliminary result Specimen: Blood, Peripheral Draw Updated: 03/15/21804 Bacteria/Raudel Culture, Blood No growth to date. MRSA PCR, Nasal [[id number]] Collected: 03/12/21622 Lab Status: Final result Specimen: Swab from Nares Updated: 03/12/21 105 MRSA Screen, Nasal by PCR Negative Hepatitis B Surface Antigen [[id number]] Collected: 03/12/21557 Lab Status: Final result Specimen: Blood, Peripheral Draw Updated: 03/12/21743 HBs Antigen, S Nonreactive Comment: Biotin has been identified by the landscaper as a potential interfering substance. Higher concentrations of biotin may be found in multivitamins, hair/nail supplements, and workout supplements. If the result does not match clinical observations, repeat testing after patient refrains from the use of supplements for at least 12 hours. Hepatitis B Core IgM Ab [[id number]] Collected: 03/12/21557 Lab Status: Final result Specimen: Blood, Peripheral Draw Updated: 03/13/21911 HBc IgM Ab, S Negative Hepatitis A IgM Ab, Serum [[id number]] Collected: 03/12/21557 Lab Status: Final result Specimen: Blood, Peripheral Draw Updated: 03/13/21950 Hepatitis A IgM Ab, S Negative Comment: Result does not exclude the possibility of exposure to hepatitis A virus. Antibody level during early infection stage may be below the limit of detection of the assay. HCV Ab w/Reflex to HCV PCR, Serum [[id number]] Collected: 03/12/21557 Lab Status: Final result Specimen: Blood, Peripheral Draw Updated: 03/13/21924 HCV Ab, S Negative Comment: Mlrqwj-ab-vwlghe ratio is <1.00. Bacteria / Raudel Culture, Blood #1 [[id number]] Collected: 03/12/21556 Lab Status: Preliminary result Specimen: [...] at discharge: TBD Virginie Valerio, Pharm.D., R.Ph. BUILDER APPRENTICE Lizet Navarro M.D. - 03/14/2021 12:10 PM [...] Procedure Component Value - Date/Time Gram Stain [[id number]] Collected: 03/12/211545 Lab Status: Final result Specimen: Peritoneal Fluid Updated: 03/12/21 182 Gram Stain No organisms seen. White blood cells present. Stain performed on concentrated cytospin preparation. Bacterial Culture, Anaerobic + Susc [[id number]] Collected: 03/12/21 154 Lab Status: In process Specimen: Peritoneal Fluid Updated: 03/12/21 154 Bacterial Culture, Aerobic + Susc [[id number]] Collected: 03/12/21 1546 Lab Status: Preliminary result Specimen: Peritoneal Fluid Updated: 03/13/21 1129 Bacterial Culture, Aerobic + Susc No growth to date Bacterial Culture, Aerobic + Susc [[id number]] Collected: 03/12/21 1234 Lab Status: Preliminary result Specimen: Pleural Fluid, Right Updated: 03/13/21 1133 Bacterial Culture, Aerobic + Susc No growth to date Bacterial Culture, Anaerobic + Susc [[id number]] Collected: 03/12/21 1234 Lab Status: In process Specimen: Pleural Fluid, Right Updated: 03/12/21 1308 Gram Stain [[id number]] Collected: 03/12/21 123 Lab Status: Final result Specimen: Pleural Fluid, Right Updated: 03/12/21 1646 Gram Stain No organisms seen. White blood cells present. Stain performed on concentrated cytospin preparation. Gram Stain [[id number]] Collected: 03/12/21 123 Lab Status: No result Specimen: Pleural Fluid, Right SARS Coronavirus-2 RNA, V Symptomatic [[id number]] Collected: 03/12/21 1100 Lab Status: Final result [...] was performed using the Aptima SARS-CoV-2 assay ([employer] on the [employer] Biomarker System under emergency use authorization (EUA) by the U.S. Food and Drug Administration. Fact sheets for this EUA assay can be found at the following links: For Healthcare Providers: https://www.fda.gov/media/865763/download For Patients: https://www.fda.gov/media/530321/download Influenza A/B and RSV, PCR, Varies [[id number]] Collected: 03/12/21 1100 Lab Status: Final result Specimen: Varies from Nasopharynx Updated: 03/13/21 1155 Influenza A/B and RSV, Source Swab, Nasopharynx Influenza A, PCR Undetected Comment: Influenza A RNA absent. Influenza B, PCR Undetected Comment: Influenza B RNA absent. Respiratory Syncytial Virus, PCR Undetected Comment: RSV RNA absent. ----ADDITIONAL INFORMATION---- This test has been modified from the landscaper's instructions. Its performance characteristics were determined by [facility] in a manner consistent with CLIA requirements. This test has not been cleared or approved by the U.S. Food and Drug Administration. Bacteria / Raudel Culture, Blood #2 [[id number]] Collected: 03/12/21709 Lab Status: Preliminary result Specimen: Blood, Peripheral Draw Updated: 03/13/21804 Bacteria/Raudel Culture, Blood No growth to date. MRSA PCR, Nasal [[id number]] Collected: 03/12/21622 Lab Status: Final result Specimen: Swab from Nares Updated: 03/12/21 1050 MRSA Screen, Nasal by PCR Negative Hepatitis B Surface Antigen [[id number]] Collected: 03/12/21557 Lab Status: Final result Specimen: Blood, Peripheral Draw Updated: 03/12/21743 HBs Antigen, S Nonreactive Comment: Biotin has been identified by the landscaper as a potential interfering substance. Higher concentrations of biotin may be found in multivitamins, hair/nail supplements, and workout supplements. If the result does not match clinical observations, repeat testing after patient refrains from the use of supplements for at least 12 hours. Hepatitis B Core IgM Ab [[id number]] Collected: 03/12/21557 Lab Status: Final result Specimen: Blood, Peripheral Draw Updated: 03/13/21911 HBc IgM Ab, S Negative Hepatitis A IgM Ab, Serum [[id number]] Collected: 03/12/21557 Lab Status: Final result Specimen: Blood, Peripheral Draw Updated: 03/13/21950 Hepatitis A IgM Ab, S Negative Comment: Result does not exclude the possibility of exposure to hepatitis A virus. Antibody level during early infection stage may be below the limit of detection of the assay. HCV Ab w/Reflex to HCV PCR, Serum [[id number]] Collected: 03/12/21557 Lab Status: Final result Specimen: Blood, Peripheral Draw Updated: 03/13/21924 HCV Ab, S Negative Comment: Zjhejg-ag-dbiopr ratio is <1.00. Bacteria / Raudel Culture, Blood #1 [[id number]] Collected: 03/12/21 0557 Lab Status: Preliminary result [...] care time 35 min Lizet Navarro M.D. BUILDER APPRENTICE Kerry Naranjo APRN, C.N.P., M.S.N. - 03/14/2021 [...] Naranjo APRN, C.N.P., M.S.N. Gastroenterology and Hepatology [facility] BUILDER APPRENTICE Associated attestation - Leslie Hawk M.D. - 03/14/2021 1:07 PM BODY BUILDER APPRENTICE This is a supervisory note for gastroenterology [...] ceruloplasmin, I have discussed her case with trailhead maintenance worker, since patient is anuric currently, we will [...] Procedure Component Value - Date/Time Gram Stain [[id number]] Collected: 03/12/21 1546 Lab Status: Final result Specimen: Peritoneal Fluid Updated: 03/12/21 1822 Gram Stain No organisms seen. White blood cells present. Stain performed on concentrated cytospin preparation. Bacterial Culture, Anaerobic + Susc [[id number]] Collected: 03/12/21 1546 Lab Status: Preliminary result Specimen: Peritoneal Fluid Updated: 03/14/21 0523 Bacterial Culture, Anaerobic No growth to date. Bacterial Culture, Aerobic + Susc [[id number]] Collected: 03/12/21 1546 Lab Status: Preliminary result Specimen: Peritoneal Fluid Updated: 03/13/21 1129 Bacterial Culture, Aerobic + Susc No growth to date Bacterial Culture, Aerobic + Susc [[id number]] Collected: 03/12/21 1234 Lab Status: Preliminary result Specimen: Pleural Fluid, Right Updated: 03/13/21 1133 Bacterial Culture, Aerobic + Susc No growth to date Bacterial Culture, Anaerobic + Susc [[id number]] Collected: 03/12/21 1234 Lab Status: Preliminary result Specimen: Pleural Fluid, Right Updated: 03/14/21 0523 Bacterial Culture, Anaerobic No growth to date. Gram Stain [[id number]] Collected: 03/12/21 1234 Lab Status: Final result Specimen: Pleural Fluid, Right Updated: 03/12/21 1646 Gram Stain No organisms seen. White blood cells present. Stain performed on concentrated cytospin preparation. Gram Stain [[id number]] Collected: 03/12/21 1234 Lab Status: No result Specimen: Pleural Fluid, Right SARS Coronavirus-2 RNA, V Symptomatic [[id number]] Collected: 03/12/21 1100 Lab Status: Final result [...] was performed using the Aptima SARS-CoV-2 assay ([employer] on the [employer] System under emergency use authorization (EUA) by the U.S. Food and Drug Administration. Fact sheets for this EUA assay can be found at the following links: For Healthcare Providers: https://www.fda.gov/media/189158/download For Patients: https://www.fda.gov/media/425820/download Influenza A/B and RSV, PCR, Varies [[id number]] Collected: 03/12/21 1100 Lab Status: Final result Specimen: Varies from Nasopharynx Updated: 03/13/21 1155 Influenza A/B and RSV, Source Swab, Nasopharynx Influenza A, PCR Undetected Comment: Influenza A RNA absent. Influenza B, PCR Undetected Comment: Influenza B RNA absent. Respiratory Syncytial Virus, PCR Undetected Comment: RSV RNA absent. ----ADDITIONAL INFORMATION---- This test has been modified from the landscaper's instructions. Its performance characteristics were determined by [facility] in a manner consistent with CLIA requirements. This test has not been cleared or approved by the U.S. Food and Drug Administration. Bacteria / Raudel Culture, Blood #2 [[id number]] Collected: 03/12/21 0710 Lab Status: Preliminary result Specimen: Blood, Peripheral Draw Updated: 03/14/21 0805 Bacteria/Raudel Culture, Blood No growth to date. MRSA PCR, Nasal [[id number]] Collected: 03/12/21 0623 Lab Status: Final result Specimen: Swab from Nares Updated: 03/12/21 1050 MRSA Screen, Nasal by PCR Negative Hepatitis B Surface Antigen [[id number]] Collected: 03/12/2158 Lab Status: Final result Specimen: Blood, Peripheral Draw Updated: 03/12/21 0744 HBs Antigen, S Nonreactive Comment: Biotin has been identified by the landscaper as a potential interfering substance. Higher concentrations of biotin may be found in multivitamins, hair/nail supplements, and workout supplements. If the result does not match clinical observations, repeat testing after patient refrains from the use of supplements for at least 12 hours. Hepatitis B Core IgM Ab [[id number]] Collected: 03/12/2158 Lab Status: Final result Specimen: Blood, Peripheral Draw Updated: 03/13/21 0912 HBc IgM Ab, S Negative Hepatitis A IgM Ab, Serum [[id number]] Collected: 03/12/21557 Lab Status: Final result Specimen: Blood, Peripheral Draw Updated: 03/13/21 0951 Hepatitis A IgM Ab, S Negative Comment: Result does not exclude the possibility of exposure to hepatitis A virus. Antibody level during early infection stage may be below the limit of detection of the assay. HCV Ab w/Reflex to HCV PCR, Serum [[id number]] Collected: 03/12/21557 Lab Status: Final result Specimen: Blood, Peripheral Draw Updated: 03/13/21924 HCV Ab, S Negative Comment: Jxuask-pk-afikpq ratio is <1.00. Bacteria / Raudel Culture, Blood #1 [[id number]] Collected: 03/12/2157 Lab Status: Preliminary result Specimen: [...] anticipated at discharge: REFUGIO Valerio, Pharm.D., R.Ph. BUILDER APPRENTICE Silvestre Stevens, R.R.T. - 03/14/2021 9:31 AM [...] extubated to 4 lpm per nasal canula BUILDER APPRENTICE Adry Reyes - 03/14/2021 4:20 AM CST 03/14/21 0315 [facility] Information Ventilator System Check Settings and alarms [...] signed by: Adry Reyes 03/14/21 4:21 AM BODY BUILDER APPRENTICE BUILDER APPRENTICE Tariq Marcano M.B.B.S. - 03/13/2021 7:04 PM [...] Procedure Component Value - Date/Time Gram Stain [[id number]] Collected: 03/12/21 1546 Lab Status: Final result Specimen: Peritoneal Fluid Updated: 03/12/21 1822 Gram Stain No organisms seen. White blood cells present. Stain performed on concentrated cytospin preparation. Bacterial Culture, Anaerobic + Susc [[id number]] Collected: 03/12/21 1546 Lab Status: In process Specimen: Peritoneal Fluid Updated: 03/12/21 1548 Bacterial Culture, Aerobic + Susc [[id number]] Collected: 03/12/21 1546 Lab Status: Preliminary result Specimen: Peritoneal Fluid Updated: 03/13/21 1129 Bacterial Culture, Aerobic + Susc No growth to date Bacterial Culture, Aerobic + Susc [[id number]] Collected: 03/12/21 1234 Lab Status: Preliminary result Specimen: Pleural Fluid, Right Updated: 03/13/21 1133 Bacterial Culture, Aerobic + Susc No growth to date Bacterial Culture, Anaerobic + Susc [[id number]] Collected: 03/12/21 1234 Lab Status: In process Specimen: Pleural Fluid, Right Updated: 03/12/21 1308 Gram Stain [[id number]] Collected: 03/12/21 1234 Lab Status: Final result Specimen: Pleural Fluid, Right Updated: 03/12/21 1646 Gram Stain No organisms seen. White blood cells present. Stain performed on concentrated cytospin preparation. Gram Stain [[id number]] Collected: 03/12/21 1234 Lab Status: No result Specimen: Pleural Fluid, Right SARS Coronavirus-2 RNA, V Symptomatic [[id number]] Collected: 03/12/21 1100 Lab Status: Final result [...] was performed using the Aptima SARS-CoV-2 assay ([employer] on the [employer] Biomarker System under emergency use authorization (EUA) by the U.S. Food and Drug Administration. Fact sheets for this EUA assay can be found at the following links: For Healthcare Providers: https://www.fda.gov/media/595010/download For Patients: https://www.fda.gov/media/264634/download Influenza A/B and RSV, PCR, Varies [[id number]] Collected: 03/12/21 1100 Lab Status: Final result Specimen: Varies from Nasopharynx Updated: 03/13/21 1155 Influenza A/B and RSV, Source Swab, Nasopharynx Influenza A, PCR Undetected Comment: Influenza A RNA absent. Influenza B, PCR Undetected Comment: Influenza B RNA absent. Respiratory Syncytial Virus, PCR Undetected Comment: RSV RNA absent. ----ADDITIONAL INFORMATION---- This test has been modified from the landscaper's instructions. Its performance characteristics were determined by [facility] in a manner consistent with CLIA requirements. This test has not been cleared or approved by the U.S. Food and Drug Administration. Bacteria / Raudel Culture, Blood #2 [[id number]] Collected: 03/12/21 0710 Lab Status: Preliminary result Specimen: Blood, Peripheral Draw Updated: 03/13/21 0805 Bacteria/Raudel Culture, Blood No growth to date. MRSA PCR, Nasal [[id number]] Collected: 03/12/21 0623 Lab Status: Final result Specimen: Swab from Nares Updated: 03/12/21 1050 MRSA Screen, Nasal by PCR Negative Hepatitis B Surface Antigen [[id number]] Collected: 03/12/21 0558 Lab Status: Final result Specimen: Blood, Peripheral Draw Updated: 03/12/21743 HBs Antigen, S Nonreactive Comment: Biotin has been identified by the landscaper as a potential interfering substance. Higher concentrations of biotin may be found in multivitamins, hair/nail supplements, and workout supplements. If the result does not match clinical observations, repeat testing after patient refrains from the use of supplements for at least 12 hours. Hepatitis B Core IgM Ab [[id number]] Collected: 03/12/21557 Lab Status: Final result Specimen: Blood, Peripheral Draw Updated: 03/13/21911 HBc IgM Ab, S Negative Hepatitis A IgM Ab, Serum [[id number]] Collected: 03/12/21557 Lab Status: Final result Specimen: Blood, Peripheral Draw Updated: 03/13/21950 Hepatitis A IgM Ab, S Negative Comment: Result does not exclude the possibility of exposure to hepatitis A virus. Antibody level during early infection stage may be below the limit of detection of the assay. HCV Ab w/Reflex to HCV PCR, Serum [[id number]] Collected: 03/12/21557 Lab Status: Final result Specimen: Blood, Peripheral Draw Updated: 03/13/21924 HCV Ab, S Negative Comment: Lwsftu-jo-qyyfsv ratio is <1.00. Bacteria / Raudel Culture, Blood #1 [[id number]] Collected: 03/12/21556 Lab Status: Preliminary result Specimen: [...] 32 minutes. I personally discussed with the automotive exhaust emissions technician on-call Tyrell Wright BUILDER APPRENTICE Criselda Maurer R.R.T., L.R.T. - 03/13/2021 6:09 [...] ART 30 L PH ART 7.46 H BUILDER APPRENTICE Kerry Naranjo APRN, C.N.P., M.S.N. - 03/13/2021 [...] Naranjo APRN, C.N.P., M.S.N. Gastroenterology and Hepatology [facility] BUILDER APPRENTICE Associated attestation - Leslie Hawk M.D. - 03/13/2021 2:43 PM BODY BUILDER APPRENTICE This is a supervisory note for gastroenterology [...] 1 gm x1 given 03/12 ?? Per washing machine installer, plan for 5 days of broad spectrums [...] at discharge: TBD Virginie Valerio, Pharm.D., R.Ph. BUILDER APPRENTICE Sridhar Trevino R.R.T. - 03/13/2021 6:29 AM CST 2000-Pt seen this evening with 7.5 ETT, secured 22cm @ teeth. Pt on kincaid ventilator SCMV 18/320/+12/40% SpO2: 99% Breath Sounds/Secretions: clear/dim, suctioning out small white/yellow secretions. Pt tolerating ventilator well RT to follow BUILDER APPRENTICE Virginie Valerio, R.Ph. - 03/12/2021 10:18 AM [...] at discharge: TBD Virginie Valerio, Pharm.D., R.Ph. BUILDER APPRENTICE Shahida Brito R.R.T., L.R.T. - 03/12/2021 10:14 AM CST Pt was intubated with 7.5 ETT placed at 22@ teeth. Tube placement confirmed with bilateral breath sounds and positive ETCO2. She was placed on the ventilator at volume control 20/300/+8/40%. BUILDER APPRENTICE documented in this encounter H&P Notes Ivan [...] again had likely had a consultation with [facility] and will request records from their [...] from lines of procedures was 60 minutes BUILDER APPRENTICE documented in this encounter Procedure Notes Barrera [...] slight turn: yes Complications - arterial: none BUILDER APPRENTICE Barrera To M.D. - 03/12/2021 6:02 PM [...] ETT location: oral VL device: glide scope Tiller scope blade size: 3 Adult tube size: [...] right mid-axillary Intercostal space: 3rd Puncture method: pryq-rft-mrnsrf catheter Number of attempts: 1 Drainage characteristics: [...] completed successfully: yes Complications: no apparent complications BUILDER APPRENTICE documented in this encounter Consult Notes Ciara Stewart L.G.S.W. - 03/21/2021 2:09 PM CST Diagnostic Assessment SUBJECTIVE DEMOGRAPHIC INFORMATION Referral Source: CM/ROSAS Referral Referral Reason: Psychosocial assessment,Coping, adjustment and support,Discharge Planning Discharge Planning: (to be determined) Person(s) present during interview: Boyfrrosettad, Lobito Primary care clinic and provider: ELSEWHERE, PCP, Patient reported Dr. Roge Hernandez, [facility] to be her primary Doctor Primary Language: Bangladeshi Tank Charger Services Used: No Legal Information: Voluntary Citizenship: [...] Support System: Significant other,Parent,Family members Spirituality / Mandaeism / Culture: , patient was raised [place] but does not currently attend anglican. 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 ASSISTIVE DEVICES Patient has the following equipment: Eyeglasses,Contacts Patient anticipates potentially needing the following additional equipment: None Transportation needs: Support from family REGULATORY SUBMISSIONS SPECIALIST Caregiver Name: Lobito Brunson Caregiver Relationship: Significant other Caregiver FINANCES/INSURANCE Primary insurance: [employer] Secondary insurance: N/A Income Information Does the Patient have any Financial Concerns?: Yes Income Source: Parent/primary caregiver employmen Income/Expense Information: Income meets expenses ADVANCE DIRECTIVES The patient does not currently have an advance directive on file. LEGAL HISTORY Review of the [place] Trial Court Public Access Website ([email or web address]) shows no past or current criminal charges. [...] side effects. Patient works with Dr. Hernandez, [facility], for medication management and support. Thepatient reported [...] Intact Suicide Risk and Safety Risk Assessment: [place] Suicide Risk Severity Scale (C-SSRS)Lifetime/Recent 03/21/21 1400 [...] active suicidal and homicidal ideation. Lifetime/Recent: The [place] Suicide Severity Rating Scale (C-SSRS) Lifetime/Recent screening [...] patient saw a therapist years ago. MARIBEL Blakley 03/13/21 Pharmacotherapies details: Patient's mother believes that [...] sustained remission INTERVENTIONS 1. Inpatient clinical social sciences professor completed a diagnostic assessment in response to a chemical dependency order placed by Keerthi Guzman (ordering hospitalist). 2. survey worker engaged the patient in Solution Focused Brief Therapy and Motivational Interviewingutilizing scaling questions and process questions and rapport building, empathetic communication, open ended questioning, summarizing and reflection to complete the assessment process. survey worker recommended patient continue to follow direction of inpatient medical and mental health team to determine best plan of care for patient. Rule 25 assessment discussed with patient, however based on this communications writer's assessment and patient's disclosure, patient reports no [...] chemical health assessment or Rule 25. 5. survey worker engaged in safety planning conversation. a. Patient [...] medical and mental health treatment team. 2. survey worker will continue to assist as needed and [...] 50 minutes total time. Danny Newton 03/21/2021 BUILDER APPRENTICE Jean Paul M.D., M.P.H. - 03/21/2021 12:07 [...] while sitting in bed, eyes rolled back. STRUCTURAL ANALYSIS ENGINEER called for help and upon RN entering room, noted pts arms tensing and shaking. GOVERNMENT RELATIONS DIRECTOR paged right away. VSS. Pt appearing sleepy upon communications writer entering room and then after a couple [...] Plantar Response: R flexor L flexor Coordination: Nzyarg-Jfyz-Scblxz: Intact b/l ASSESSMENT / PLAN Patient Active [...] the date of the encounter. Time included jjgi-se-jqkg interview and evaluation, counseling the patient, reviewing records, reviewing relevant diagnostic tests, ordering tests, documenting clinical information in the electronic records and communicating with other p roviders. PATIENT EDUCATION Ready to learn, no apparent learning barriers were identified; learning preferences include listening. Explained diagnosis and treatment plan; patient expressed understanding of the content. BUILDER APPRENTICE Sivakumar Reyes M.D. 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 We placed a fepflm-ae-pyjtf suture around the paracentesis site. [facility] of the ICU team. Procedure: 5 mL of 1% lidocaine were injected around the paracentesis site. A 2 0 Vicryl suture was used to place the a [id number] stitch around the paracentesis site This was [...] clinic and provider: ELSEWHERE, PCP Primary Language: Bangladeshi Tank Charger Services Used: No Legal Information: Legal Decision [...] so this writercontacted the patient's mother Parris ([phone]) to complete a psychosocial assessment and to [...] Support System: Significant other,Parent,Family members Spirituality / Mandaeism / Culture: , patient was raised [place] but does not currently attend anglican. 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 ASSISTIVE DEVICES Patient has the following equipment: Eyeglasses,Contacts Patient anticipates potentially needing the following additional equipment: None Transportation needs: Support from family SERVICES REQUESTED None REGULATORY SUBMISSIONS SPECIALIST Formal and Informal Resources: Caregiver Name: Lobito Brunson Caregiver Relationship: Significant other Caregiver FINANCES/INSURANCE Primary insurance: [employer] Secondary insurance: N/A Income Information Does the [...] Suicide Risk and Safety Risk Assessment: The [place] Suicide Risk Severity Scale (C-SSRS) was unable [...] extended family/friends ASSESSMENT / PLAN IMPRESSION This communications writer completed a psychosocial assessment of the patient [...] work at this time but thanked this communications writer for the call. INTERVENTIONS 1. Psychosocial assessment completed. 2. Provided supportive services. 3. Provided education regarding the role of social work. 4. Provided education regarding referral resources and options. PLAN 1. Social Work will continue to follow and assist as needed or requested. Anticipated barriers to the transition of care/plan: None Светлана Guillen 03/13/2021 BUILDER APPRENTICE Sera Morgan P.A.-C. - 03/12/2021 12:50 PM [...] of cirrhosis with ascites who presents from [facility] being found unresponsive and incontinent at home. [...] (A) Bilirubin Moderate (A) pH 6.0 Specific Lind[place] 1.016 Urobilinogen 1.0 MRSA PCR, Nasal Collection [...] plan at this time. Sera Morgan P.A.-C. BUILDER APPRENTICE Associated attestation - Leslie Hawk M.D. - 03/12/2021 2:37 PM BODY BUILDER APPRENTICE This is a supervisory note for gastroenterology [...] answered. All belongings sent home with patient. BUILDER APPRENTICE Bernardo Rosario R.N. - 03/24/2021 4:20 AM [...] Plan of care to be continued by [facility]. BUILDER APPRENTICE Hope Guerrier R.N. - 03/23/2021 4:32 PM [...] of blood today. Will continue withcurrent POC. BUILDER APPRENTICE Lisa Stinson R.N. - 03/23/2021 5:50 AM [...] Patient denies pain. Will continue to monitor. BUILDER APPRENTICE Carol Rodriguez R.N. - 03/22/2021 11:06 PM CST Shift Goals: Clinical Goals for the Shift: Patient will remain free from falls and get adequate rest Identify possible barriers to meeting goals/advancing plan of care: None End of Shift Summary: Patient slept intermittently throughout the shift and took a couple walks in the halls with the STRUCTURAL ANALYSIS ENGINEER today. Pt reported having no abdominal pain and VS remained stable. Pt did not need her night dose ofLactulose as she reported having 3 stools earlier today. No other concerns present at this time, will continue with plan of care. BUILDER APPRENTICE Jarek Horta R.N. - 03/22/2021 2:55 PM CST MARILUZ Follow up: This is a follow up to the Behavioral Emergency Response Team call for Anxiety,Agitation, at [facility]. I have reviewed the medical records, spoke with the patient's nurse, and met with the patient in person. Follow-Up Assessment: Media Relations Manager met with patient assigned nurse. Patient nurse [...] free to contact the MARILUZ RN at [phone], or in an emergent situation by activating the MARILUZ team through the hospital cooler operator by dialing 201. Nola Ayers - [...] plan for eeg today Interventions: remove from sewing machine attachment tester list Recommendations for primary RN: call for [...] primary nurse: Encouraged primary RN to call GOVERNMENT RELATIONS DIRECTOR with questions, concerns, or if patient condition [...] RN: Continue to monitor mental status, call GOVERNMENT RELATIONS DIRECTOR with any concerns Rapid RN will continue to monitor for: Will monitor for seizure like activity Patient Disposition: has improved Rapid RN following prior to transfer to higher level of care, if applicable: Offered debrief to primary nurse: Encouraged primary RN to call GOVERNMENT RELATIONS DIRECTOR with questions, concerns, or if patient condition [...] labs. Will continue with plan of care. BUILDER APPRENTICE Priscilla Morelos R.N. - 03/20/2021 11:03 PM [...] while sitting in bed, eyes rolled back. STRUCTURAL ANALYSIS ENGINEER called for help and upon RN entering room,noted pts arms tensing and shaking. GOVERNMENT RELATIONS DIRECTOR paged right away. VSS. Pt appearing sleepy upon communications writer entering room and then after a couple [...] HS, had 4bms today. Continue to monitor. BUILDER APPRENTICE Tia Abbasi R.N. - 03/20/2021 10:38 PM CST MARILUZ Follow up: This is a follow up to the Behavioral Emergency Response Team call for Anxiety,Agitation, at [facility]. I have reviewed the medical records, spoke [...] free to contact the MARILUZ RN at [phone], or in an emergent situation by activating the MARILUZ team through the hospital cooler operator by dialing 201. BUILDER APPRENTICE Grazyna Barroso R.N. - 03/20/2021 2:34 PM [...] Vitals remain stable, continue plan of care. BUILDER APPRENTICE Cathie Rae, R.N. - 03/20/2021 1:34 PM CST MARILUZ Follow up: This is a follow up to the Behavioral Emergency Response Team call for Anxiety,Agitation, at [facility]. I have reviewed the medical records, spoke [...] free to contact the MARILUZ RN at [phone], or in an emergent situation by activating the MARILUZ team through the hospital cooler operator by dialing 201. BUILDER APPRENTICE Tia Abbasi R.N. - 03/20/2021 6:49 AM CST MARILUZ Follow up: This is a follow up to the Behavioral Emergency Response Team call for Anxiety,Agitation, at [facility]. I have reviewed the medical records, spoke with the patient's nurse, and met with the patient in person. Follow-Up Assessment: No MARILUZ calls this shift. Will continue to follow. Follow-Up: ?? The MARILUZ RN will follow up during their next rounds on the day shift. If there are any questions or concerns, please feel free to contact the MARILUZ RN at [phone], or in an emergent situation by activating the MARILUZ team through the hospital cooler operator by dialing 201. BUILDER APPRENTICE Juan Palacios R.N. - 03/20/2021 4:14 AM [...] Emergency Response Team call for Anxiety,Agitation, at [facility]. I have reviewed the medical records, spoke with the patient's nurse, and met with the patient in person. Follow-Up Assessment: No requests for mariluz interventions today. Follow-Up: ?? The MARILUZ RN will follow up during their rounds on the evening shift. If there are any questions or concerns, please feel free to contact the MARILUZ RN at [phone], or in an emergent situation by activating the MARILUZ team through the hospital cooler operator by dialing 201. BUILDER APPRENTICE Grazyna Barroso R.N. - 03/19/2021 1:00 PM [...] by: Virginie Stahl R.N. 03/19/21 7:38 AM BODY BUILDER APPRENTICE Criselda Heart R.N. - 03/18/2021 6:56 PM [...] a 30 y.o. female admitted to the [facility] for Change Mental Status Media Relations Manager called to pt room due to increased anxious behavior. Pt had refused her lactulose several times recently. Media Relations Manager observed while pt received the a dose this afternoon. Her speech was rapid and tangental. Pt became visibly anxious during and after taking the lactulose. Pt began to slur her words and stutter. Pt's pupils were equal, round, and reacted briskly. Motor function/sensation assessment was normal. After other staff left the room communications writer talked with pt for a while and [...] was the sister or cousin of a STRUCTURAL ANALYSIS ENGINEER. Media Relations Manager spent time validating pt's feelings and when she was much calmer communications writer cleared from the situation. Individual Assignment prior [...] free to contact the MARILUZ RN at [phone], or in an emergent situation by activating the MARILUZ team through the hospital cooler operator by dialing 201. Virginie Browning R.N. [...] by: Virginie Stahl R.N. 03/18/21 6:07 AM BODY BUILDER APPRENTICE BUILDER APPRENTICE Criselda He R.N. - 03/17/2021 5:44 PM [...] at 1445. Will continue plan of care. BUILDER APPRENTICE Nola Frederick - 03/17/2021 5:37 AM CST [...] not call for assistance at any point. BUILDER APPRENTICE Hilda Bower R.N. - 03/16/2021 8:04 PM [...] art line, cont to have 2 PIVs. BUILDER APPRENTICE Ricardo Rosado REric. - 03/16/2021 4:28 AM [...] grateful. Replaced magnesium, calcium, potassium and phos. BUILDER APPRENTICE Hilda Bower R.N. - 03/15/2021 6:00 PM [...] Has a right IJ and 2 PIVs. BUILDER APPRENTICE Ricardo Rosado R.N. - 03/15/2021 6:34 AM [...] Potassium, Magnesium and phos replaced this shift. BUILDER APPRENTICE Hilda Bower RGabby - 03/14/2021 6:45 PM [...] currently on 25 mcg/kg/min, 0.5 mcg/kg/hr precedex. BUILDER APPRENTICE Diya Weiss R.N. - 03/13/2021 5:05 PM [...] titrated down with MAP goal (>65 per Sales Developer) achieved. Patient appear to have improving mental [...] by: Baldemar Evangelista R.N. 03/13/21 6:36 AM BODY BUILDER APPRENTICE BUILDER APPRENTICE Diya Weiss R.N. - 03/12/2021 3:00 PM [...] pelvis today. No family visiting this shift. Sales Developer updated patient's mother via phone call. BUILDER APPRENTICE Criselda Valentin R.N. - 03/12/2021 6:45 AM CST Pt direct admit from [facility] to room 3411. Pt agitated, moaning, not [...] him to bring her to the ED. BUILDER APPRENTICE documented in this encounter Miscellaneous Notes Hospital [...] of FFP yesterday. She was transferred to [facility] 03/16. -- continue Lactulose titrate down [...] the course abx for community acquired pneumonia BUILDER APPRENTICE documented in this encounter Plan of Treatment Upcoming Encounters Date Type Specialty Care Team Description Office Visit [facility], 2 Medicine Luis Perez. [address] [place] [address] Appointment Radiology Matthew Jerome 2 Y, M.B.B.S., MJules [address] [place] [phone] Hospital Gastroenterology and Mousa Matthew 2 Encounter Hepatology Y M.B.B.S., MJules [address] [place] [phone] Surgery Gastroenterology and Queenie Matthew ESOPHAG OGASTRODUODENOSCOPY 2 Hepatology Y, M.B.B.S., MJules [address] [place] [phone] Telemedicine Transplant 2 Lab Laboratory Medicine Karin, 2 Adeline Gannon M.D., Ph.D. [address] [place] [phone] Lab Laboratory Medicine Karin, 2 Adeline Gannon M.D., Ph.D. [address] [place] [phone] Office Visit Transplant Karin, 2 Adeline Gannon M.D., Ph.D. [address] [place] [phone] Appointment Radiology Matthew Jerome 2 Y, M.B.B.S., MJules [address] [place] [phone] Appointment Gastroenterology and Doll, 2 Hepatology Yue Burciaga M.D. [address] [place] [address] Office Visit Gastroenterology and Matthew Jerome 2 Hepatology Tyrell Rodriguez, Lilian [address] [place] [phone] Appointment Radiology LuisMatthew abdul 2 Tyrell Rodriguez M.D. [address] [place] [phone] Pending Results Name Type Priority Associated Diagnoses Date/Ti me Prepare Red Blood Cells, 1 Blood Bank Routine 1 05/12/2020 12:59 PM Units BODY BUILDER APPRENTICE Prepare Red Blood Cells, 1 Blood Bank Routine 1 05/12/2020 12:59 PM Units BODY BUILDER APPRENTICE Prepare Red Blood Cells, 1 Blood Bank Routine 1 05/12/2020 12:59 PM Units BODY BUILDER APPRENTICE Prepare Fresh Frozen Blood Bank Routine 12:06 PM Plasma : 2 Units BODY BUILDER APPRENTICE Transfuse Fresh Frozen Blood Bank Routine 03/15 3:52 PM Plasma :Bleeding with BODY BUILDER APPRENTICE altered coagulation; 180 mL/hr, 2 Units Prepare Red Blood Cells, 1 Blood Bank Routine 1 05/12/2020 12:59 PM Units BODY BUILDER APPRENTICE Prepare Fresh Frozen Blood Bank Routine 021 2:05 AM Plasma : 1 Units BODY BUILDER APPRENTICE Prepare Pooled Blood Bank Routine 03/16/2021 2: 05 AM Cryoprecipitate BODY BUILDER APPRENTICE Prepare Red Blood Cells, 1 Blood Bank STAT 1 05/16/2020 5:44 AM Units BODY BUILDER APPRENTICE Prepare Fresh Frozen Blood Bank STAT 021 5:44 AM Plasma : 2 Units BODY BUILDER APPRENTICE Prepare Red Blood Cells, 2 Blood Bank STAT 1 05/16/2020 5:44 AM Units BODY BUILDER APPRENTICE Prepare Red Blood Cells, 1 Blood Bank STAT 1 05/16/2020 5:44 AM Units BODY BUILDER APPRENTICE Prepare Fresh Frozen Blood Bank STAT 021 5:44 AM Plasma : 1 Units BODY BUILDER APPRENTICE Patient Status Lab Routine 03/20/2021 7: 40 AM BODY BUILDER APPRENTICE Prepare Red Blood Cells, 1 Blood Bank Routine 1 05/23/2020 1:12 PM Units BODY BUILDER APPRENTICE Scheduled Procedures Name Priority Associated Diagnoses Date/Time [...] 6:15 Res ults for E, S AM BODY BUILDER APPRENTICE this procedure are in the results section. ZINC, S Routine 03/24/2021 6:15 Results for AM BODY BUILDER APPRENTICE this procedure are in the results section. PROTHROMBIN TIME (PT), Routine 03/24/2021 6:15 Re sults for P AM BODY BUILDER APPRENTICE this procedure are in the results section. CBC WITHOUT Routine 03/24/2021 6:15 Results for DIFFERENTIAL, B AM BODY BUILDER APPRENTICE this procedu re are in the results section. COMPREHENSIVE Routine 03/24/2021 6:15 Results for METABOLIC PANEL, S/P AM BODY BUILDER APPRENTICE this pr ocedure are in the results section. TRANSFUSE RED BLOOD Routine 03/23/2021 3:21 CELLS PM BODY BUILDER APPRENTICE TESTING LOCATION Routine 03/23/2021 1:12 Results for PM BODY BUILDER APPRENTICE this procedure are in the results section. PREPARE RED BLOOD Routine 03/23/2021 1:12 CELLS PM BODY BUILDER APPRENTICE TYPE AND SCREEN Routine 03/23/2021 1:12 Results f or PM BODY BUILDER APPRENTICE this procedure are in the results section. ADULT OXYGEN THERAPY Routine 03/23/2021 8:00 AM BODY BUILDER APPRENTICE PULSE OXIMETRY, Routine 03/23/2021 8:00 CONTINUOUS AM BODY BUILDER APPRENTICE PROTHROMBIN TIME (PT), Routine 03/23/2021 6:43 Re sults for P AM BODY BUILDER APPRENTICE this procedure are in the results section. CBC WITHOUT Routine 03/23/2021 6:43 Results for DIFFERENTIAL, B AM BODY BUILDER APPRENTICE this procedu re are in the results section. PHOSPHORUS Routine 03/23/2021 6:43 Results for (INORGANIC), S AM BODY BUILDER APPRENTICE this procedur e are in the results section. MAGNESIUM, S Routine 03/23/2021 6:43 Results for AM BODY BUILDER APPRENTICE this procedure are in the results section. COMPREHENSIVE Routine 03/23/2021 6:43 Results for METABOLIC PANEL, S/P AM BODY BUILDER APPRENTICE this pr ocedure are in the results section. ADULT OXYGEN THERAPY Routine 03/22/2021 8:00 PM BODY BUILDER APPRENTICE PULSE OXIMETRY, Routine 03/22/2021 8:00 CONTINUOUS PM BODY BUILDER APPRENTICE LACTATE, B Routine 03/22/2021 8:38 Results for AM BODY BUILDER APPRENTICE this procedure are in the results section. PROTHROMBIN TIME (PT), Routine 03/22/2021 8:38 Re sults for P AM BODY BUILDER APPRENTICE this procedure are in the results section. CBC WITHOUT Routine 03/22/2021 8:38 Results for DIFFERENTIAL, B AM BODY BUILDER APPRENTICE this procedu re are in the results section. AMMONIA Routine 03/22/2021 8:38 Results for AM BODY BUILDER APPRENTICE this procedure are in the results section. COMPREHENSIVE Routine 03/22/2021 8:38 Results for METABOLIC PANEL, S/P AM BODY BUILDER APPRENTICE this pr ocedure are in the results section. PHOSPHORUS Routine 03/22/2021 8:33 Results for (INORGANIC), S AM BODY BUILDER APPRENTICE this procedur e are in the results section. MAGNESIUM, S Routine 03/22/2021 8:33 Results for AM BODY BUILDER APPRENTICE this procedure are in the results section. ADULT OXYGEN THERAPY Routine 03/22/2021 8:00 AM BODY BUILDER APPRENTICE PULSE OXIMETRY, Routine 03/22/2021 8:00 CONTINUOUS AM BODY BUILDER APPRENTICE ADULT OXYGEN THERAPY Routine 03/21/2021 8:01 PM BODY BUILDER APPRENTICE PULSE OXIMETRY, Routine 03/21/2021 8:01 CONTINUOUS PM BODY BUILDER APPRENTICE EEG ROUTINE - AWAKE Routine 03/21/2021 4:43 Resul ts for AND SLEEP PM BODY BUILDER APPRENTICE this procedure are in the results section. CT ABDOMEN PELVIS RAD - Routine 03/21/2021 Results f or WITHOUT IV CONTRAST (most inpatients 12:42 PM BODY BUILDER APPRENTICE this procedure and all are in the outpatients) results section. CT HEAD WITHOUT IV RAD - Routine 03/21/2021 Results for CONTRAST (most inpatients 12:42 PM BODY BUILDER APPRENTICE this proced ure and all are in the outpatients) results section. ECG Routine 03/21/2021 Results for 10:06 AM BODY BUILDER APPRENTICE this procedure are in the results section. ADULT OXYGEN THERAPY Routine 03/21/2021 8:01 AM BODY BUILDER APPRENTICE PULSE OXIMETRY, Routine 03/21/2021 8:01 CONTINUOUS AM BODY BUILDER APPRENTICE COMPREHENSIVE Routine 03/21/2021 5:44 Results for METABOLIC PANEL, S/P AM BODY BUILDER APPRENTICE this pr ocedure are in the results section. LACTATE, B Routine 03/21/2021 5:43 Results for AM BODY BUILDER APPRENTICE this procedure are in the results section. PROTHROMBIN TIME (PT), Routine 03/21/2021 5:43 Re sults for P AM BODY BUILDER APPRENTICE this procedure are in the results section. CBC WITHOUT Routine 03/21/2021 5:43 Results for DIFFERENTIAL, B AM BODY BUILDER APPRENTICE this procedu re are in the results section. LACTATE, B Timed 03/20/2021 Results for 10:32 PM BODY BUILDER APPRENTICE this procedure are in the results section. CBC WITH DIFFERENTIAL, Timed 03/20/2021 Resul ts for B 10:32 PM BODY BUILDER APPRENTICE this procedure are in the results section. CREATINE KINASE (CK), Timed 03/20/2021 Result s for S 10:32 PM BODY BUILDER APPRENTICE this procedure are in the results section. AMMONIA Timed 03/20/2021 Results for 10:32 PM BODY BUILDER APPRENTICE this procedure are in the results section. COMPREHENSIVE Timed 03/20/2021 Results for METABOLIC PANEL, S/P 10:32 PM BODY BUILDER APPRENTICE this pr ocedure are in the results section. GLUCOSE POCT, B Routine 03/20/2021 9:03 Results f or PM BODY BUILDER APPRENTICE this procedure are in the results section. ADULT OXYGEN THERAPY Routine 03/20/2021 8:01 PM BODY BUILDER APPRENTICE PULSE OXIMETRY, Routine 03/20/2021 8:01 CONTINUOUS PM BODY BUILDER APPRENTICE ADULT OXYGEN THERAPY Routine 03/20/2021 8:01 AM BODY BUILDER APPRENTICE PULSE OXIMETRY, Routine 03/20/2021 8:01 CONTINUOUS AM BODY BUILDER APPRENTICE LACTATE, B Routine 03/20/2021 7:40 Results for AM BODY BUILDER APPRENTICE this procedure are in the results section. PH BLOOD GAS Routine 03/20/2021 7:40 Results for AM BODY BUILDER APPRENTICE this procedure are in the results section. PROTHROMBIN TIME (PT), Routine 03/20/2021 7:40 Re sults for P AM BODY BUILDER APPRENTICE this procedure are in the results section. CBC WITHOUT Routine 03/20/2021 7:40 Results for DIFFERENTIAL, B AM BODY BUILDER APPRENTICE this procedu re are in the results section. PHOSPHORUS Routine 03/20/2021 7:40 Results for (INORGANIC), S AM BODY BUILDER APPRENTICE this procedur e are in the results section. MAGNESIUM, S Routine 03/20/2021 7:40 Results for AM BODY BUILDER APPRENTICE this procedure are in the results section. VENOUS BLOOD GAS Routine 03/20/2021 7:40 Results for W/COOX, B AM BODY BUILDER APPRENTICE this procedure are in the results section. CALCIUM, IONIZED, S/B Routine 03/20/2021 7:40 Res ults for AM BODY BUILDER APPRENTICE this procedure are in the results section. COMPREHENSIVE Routine 03/20/2021 7:40 Results for METABOLIC PANEL, S/P AM BODY BUILDER APPRENTICE this pr ocedure are in the results section. ADULT OXYGEN THERAPY Routine 03/19/2021 8:01 PM BODY BUILDER APPRENTICE PULSE OXIMETRY, Routine 03/19/2021 8:01 CONTINUOUS PM BODY BUILDER APPRENTICE TRANSFUSE FRESH FROZEN Routine 03/19/2021 5:08 PLASMA PM BODY BUILDER APPRENTICE PH BLOOD GAS Routine 03/19/2021 3:04 Results for PM BODY BUILDER APPRENTICE this procedure are in the results section. 25-HYDROXYVITAMIN D2 Routine 03/19/2021 3:04 Resu lts for AND D3, S PM BODY BUILDER APPRENTICE this procedure are in the results section. POTASSIUM, S/P Timed 03/19/2021 3:04 Results fo r PM BODY BUILDER APPRENTICE this procedure are in the results section. PARATHYROID HORMONE Routine 03/19/2021 3:04 Resul ts for (PTH), S PM BODY BUILDER APPRENTICE this procedure are in the results section. CALCIUM, IONIZED, S/B Routine 03/19/2021 3:04 Res ults for PM BODY BUILDER APPRENTICE this procedure are in the results section. TRANSFUSE RED BLOOD Routine 03/19/2021 CELLS 12:49 PM BODY BUILDER APPRENTICE (TTE) 2D ECHO DOPPLER Routine 03/19/2021 Result s for COLOR AND CONTRAST 12:39 PM BODY BUILDER APPRENTICE this proc edure are in the results section. ADULT OXYGEN THERAPY Routine 03/19/2021 8:01 AM BODY BUILDER APPRENTICE PULSE OXIMETRY, Routine 03/19/2021 8:01 CONTINUOUS AM BODY BUILDER APPRENTICE PROTHROMBIN TIME (PT), Routine 03/19/2021 7:39 Re sults for P AM BODY BUILDER APPRENTICE this procedure are in the results section. CBC WITH DIFFERENTIAL, Routine 03/19/2021 7:39 Re sults for B AM BODY BUILDER APPRENTICE this procedure are in the results section. PHOSPHORUS Routine 03/19/2021 7:39 Results for (INORGANIC), S AM BODY BUILDER APPRENTICE this procedur e are in the results section. MAGNESIUM, S Routine 03/19/2021 7:39 Results for AM BODY BUILDER APPRENTICE this procedure are in the results section. AMMONIA Routine 03/19/2021 7:39 Results for AM BODY BUILDER APPRENTICE this procedure are in the results section. COMPREHENSIVE Routine 03/19/2021 7:39 Results for METABOLIC PANEL, S/P AM BODY BUILDER APPRENTICE this pr ocedure are in the results section. BILIRUBIN DIRECT, S/P Routine 03/19/2021 7:38 Res ults for AM BODY BUILDER APPRENTICE this procedure are in the results section. ECG Routine 03/19/2021 6:44 Results for AM BODY BUILDER APPRENTICE this procedure are in the results section. ADULT OXYGEN THERAPY Routine 03/18/2021 8:01 PM BODY BUILDER APPRENTICE PULSE OXIMETRY, Routine 03/18/2021 8:01 CONTINUOUS PM BODY BUILDER APPRENTICE HEMOGLOBIN, B Routine 03/18/2021 7:00 Results for PM BODY BUILDER APPRENTICE this procedure are in the results section. AMMONIA Routine 03/18/2021 6:59 Results for PM BODY BUILDER APPRENTICE this procedure are in the results section. PROTHROMBIN TIME (PT), Routine 03/18/2021 8:35 Re sults for P AM BODY BUILDER APPRENTICE this procedure are in the results section. CBC WITH DIFFERENTIAL, Routine 03/18/2021 8:35 Re sults for B AM BODY BUILDER APPRENTICE this procedure are in the results section. COMPREHENSIVE Routine 03/18/2021 8:35 Results for METABOLIC PANEL, S/P AM BODY BUILDER APPRENTICE this pr ocedure are in the results section. ADULT OXYGEN THERAPY Routine 03/18/2021 8:02 AM BODY BUILDER APPRENTICE PULSE OXIMETRY, Routine 03/18/2021 8:02 CONTINUOUS AM BODY BUILDER APPRENTICE ADULT OXYGEN THERAPY Routine 03/17/2021 8:01 PM BODY BUILDER APPRENTICE PULSE OXIMETRY, Routine 03/17/2021 8:01 CONTINUOUS PM BODY BUILDER APPRENTICE ADULT OXYGEN THERAPY Routine 03/17/2021 8:01 AM BODY BUILDER APPRENTICE PULSE OXIMETRY, Routine 03/17/2021 8:01 CONTINUOUS AM BODY BUILDER APPRENTICE CBC WITH DIFFERENTIAL, Routine 03/17/2021 6:35 Re sults for B AM BODY BUILDER APPRENTICE this procedure are in the results section. MAGNESIUM, S Routine 03/17/2021 6:35 Results for AM BODY BUILDER APPRENTICE this procedure are in the results section. BASIC METABOLIC PANEL, Routine 03/17/2021 6:35 Re sults for S/P AM BODY BUILDER APPRENTICE this procedure are in the results section. ADULT OXYGEN THERAPY Routine 03/16/2021 8:00 PM BODY BUILDER APPRENTICE PULSE OXIMETRY, Routine 03/16/2021 8:00 CONTINUOUS PM BODY BUILDER APPRENTICE HEMOGLOBIN, B Timed 03/16/2021 4:14 Results for PM BODY BUILDER APPRENTICE this procedure are in the results section. HEMATOCRIT, B Timed 03/16/2021 4:14 Results for PM BODY BUILDER APPRENTICE this procedure are in the results section. HEMOGLOBIN, B STAT 03/16/2021 Results for 12:58 PM BODY BUILDER APPRENTICE this procedure are in the results section. HEMATOCRIT, B STAT 03/16/2021 Results for 12:58 PM BODY BUILDER APPRENTICE this procedure are in the results section. TRANSFUSE RED BLOOD Routine 03/16/2021 CELLS 11:13 AM BODY BUILDER APPRENTICE TRANSFUSE RED BLOOD Routine 03/16/2021 CELLS 10:32 AM BODY BUILDER APPRENTICE TRANSFUSE FRESH FROZEN Routine 03/16/2021 9:58 PLASMA AM BODY BUILDER APPRENTICE TRANSFUSE FRESH FROZEN Routine 03/16/2021 9:20 PLASMA AM BODY BUILDER APPRENTICE ADULT OXYGEN THERAPY Routine 03/16/2021 8:00 AM BODY BUILDER APPRENTICE PULSE OXIMETRY, Routine 03/16/2021 8:00 CONTINUOUS AM BODY BUILDER APPRENTICE TRANSFUSE RED BLOOD Routine 03/16/2021 7:35 CELLS AM BODY BUILDER APPRENTICE ACTIVATED PARTIAL STAT 03/16/2021 7:32 Results for THROMBOPLASTIN TIME AM BODY BUILDER APPRENTICE this pro cedure (APTT), P are in the results section. PROTHROMBIN TIME (PT), STAT 03/16/2021 7:32 Re sults for P AM BODY BUILDER APPRENTICE this procedure are in the results section. FIBRINOGEN, P STAT 03/16/2021 7:32 Results for AM BODY BUILDER APPRENTICE this procedure are in the results section. HEMOGLOBIN, B STAT 03/16/2021 7:31 Results for AM BODY BUILDER APPRENTICE this procedure are in the results section. TESTING LOCATION STAT 03/16/2021 5:44 Results for AM BODY BUILDER APPRENTICE this procedure are in the results section. PREPARE FRESH FROZEN STAT 03/16/2021 5:44 PLASMA AM BODY BUILDER APPRENTICE PREPARE FRESH FROZEN STAT 03/16/2021 5:44 PLASMA AM BODY BUILDER APPRENTICE PREPARE RED BLOOD STAT 03/16/2021 5:44 CELLS AM BODY BUILDER APPRENTICE PREPARE RED BLOOD STAT 03/16/2021 5:44 CELLS AM BODY BUILDER APPRENTICE PREPARE RED BLOOD STAT 03/16/2021 5:44 CELLS AM BODY BUILDER APPRENTICE TYPE AND SCREEN STAT 03/16/2021 5:44 Results f or AM BODY BUILDER APPRENTICE this procedure are in the results section. GLUCOSE POCT, B Routine 03/16/2021 5:43 Results f or AM BODY BUILDER APPRENTICE this procedure are in the results section. PH BLOOD GAS Routine 03/16/2021 4:57 Results for AM BODY BUILDER APPRENTICE this procedure are in the results section. CALCIUM, IONIZED, S/B Routine 03/16/2021 4:57 Res ults for AM BODY BUILDER APPRENTICE this procedure are in the results section. CBC WITHOUT Timed 03/16/2021 4:21 Results for DIFFERENTIAL, B AM BODY BUILDER APPRENTICE this procedu re are in the results section. PHOSPHORUS Timed 03/16/2021 4:21 Results for (INORGANIC), S AM BODY BUILDER APPRENTICE this procedur e are in the results section. MAGNESIUM, S Timed 03/16/2021 4:21 Results for AM BODY BUILDER APPRENTICE this procedure are in the results section. COMPREHENSIVE Timed 03/16/2021 4:21 Results for METABOLIC PANEL, S/P AM BODY BUILDER APPRENTICE this pr ocedure are in the results section. TRANSFUSE FRESH FROZEN Routine 03/16/2021 3:30 PLASMA AM BODY BUILDER APPRENTICE TRANSFUSE Routine 03/16/2021 3:18 CRYOPRECIPITATE AM BODY BUILDER APPRENTICE TRANSFUSE Routine 03/16/2021 2:42 CRYOPRECIPITATE AM BODY BUILDER APPRENTICE CT ABDOMEN PELVIS WITH RAD - Routine 03/16/2021 2:36 R esults for IV CONTRAST (most inpatients AM BODY BUILDER APPRENTICE this proced ure and all are in the outpatients) results section. TEST, POCT, Routine 03/16/2021 2:11 Res ults for U (LAB) AM BODY BUILDER APPRENTICE this procedure are in the results section. PREPARE FRESH FROZEN Routine 03/16/2021 2:05 PLASMA AM BODY BUILDER APPRENTICE PREPARE Routine 03/16/2021 2:05 CRYOPRECIPITATE AM BODY BUILDER APPRENTICE ACTIVATED PARTIAL STAT 03/16/2021 1:11 Results for THROMBOPLASTIN TIME AM BODY BUILDER APPRENTICE this pro cedure (APTT), P are in the results section. PROTHROMBIN TIME (PT), STAT 03/16/2021 1:11 Re sults for P AM BODY BUILDER APPRENTICE this procedure are in the results section. FIBRINOGEN, P STAT 03/16/2021 1:11 Results for AM BODY BUILDER APPRENTICE this procedure are in the results section. HEMOGLOBIN, B Timed 03/16/2021 Results for 12:08 AM BODY BUILDER APPRENTICE this procedure are in the results section. POTASSIUM, S/P Routine 03/16/2021 Results for 12:08 AM BODY BUILDER APPRENTICE this procedure are in the results section. GLUCOSE POCT, B Routine 03/15/2021 Results for 11:33 PM BODY BUILDER APPRENTICE this procedure are in the results section. TRANSFUSE RED BLOOD Routine 03/15/2021 9:33 CELLS PM BODY BUILDER APPRENTICE HEMOGLOBIN, B Timed 03/15/2021 8:11 Results for PM BODY BUILDER APPRENTICE this procedure are in the results section. ADULT OXYGEN THERAPY Routine 03/15/2021 8:01 PM BODY BUILDER APPRENTICE PULSE OXIMETRY, Routine 03/15/2021 8:01 CONTINUOUS PM BODY BUILDER APPRENTICE HEMOGLOBIN, B Timed 03/15/2021 4:52 Results for PM BODY BUILDER APPRENTICE this procedure are in the results section. HEMATOCRIT, B Timed 03/15/2021 4:52 Results for PM BODY BUILDER APPRENTICE this procedure are in the results section. TRANSFUSE FRESH FROZEN Routine 03/15/2021 3:52 PLASMA PM BODY BUILDER APPRENTICE HEMOGLOBIN, B Timed 03/15/2021 2:29 Results for PM BODY BUILDER APPRENTICE this procedure are in the results section. HEMATOCRIT, B Timed 03/15/2021 2:29 Results for PM BODY BUILDER APPRENTICE this procedure are in the results section. PHOSPHORUS Routine 03/15/2021 2:29 Results for (INORGANIC), S PM BODY BUILDER APPRENTICE this procedur e are in the results section. MAGNESIUM, S Routine 03/15/2021 2:29 Results for PM BODY BUILDER APPRENTICE this procedure are in the results section. BASIC METABOLIC PANEL, Timed 03/15/2021 2:29 Re sults for S/P PM BODY BUILDER APPRENTICE this procedure are in the results section. RESPIRATORY ASSESS AND Routine 03/15/2021 2:00 TREAT PM BODY BUILDER APPRENTICE TRANSFUSE FRESH FROZEN Routine 03/15/2021 1:47 PLASMA PM BODY BUILDER APPRENTICE PREPARE FRESH FROZEN Routine 03/15/2021 PLASMA 12:06 PM BODY BUILDER APPRENTICE GLUCOSE POCT, B Routine 03/15/2021 Results for 11:57 AM BODY BUILDER APPRENTICE this procedure are in the results section. TRANSFUSE RED BLOOD Routine 03/15/2021 CELLS 11:00 AM BODY BUILDER APPRENTICE ADULT OXYGEN THERAPY Routine 03/15/2021 8:01 AM BODY BUILDER APPRENTICE PULSE OXIMETRY, Routine 03/15/2021 8:01 CONTINUOUS AM BODY BUILDER APPRENTICE GLUCOSE POCT, B Routine 03/15/2021 6:14 Results f or AM BODY BUILDER APPRENTICE this procedure are in the results section. PROTHROMBIN TIME (PT), Routine 03/15/2021 4:18 Re sults for P AM BODY BUILDER APPRENTICE this procedure are in the results section. CBC WITHOUT Routine 03/15/2021 4:18 Results for DIFFERENTIAL, B AM BODY BUILDER APPRENTICE this procedu re are in the results section. PHOSPHORUS Routine 03/15/2021 4:18 Results for (INORGANIC), S AM BODY BUILDER APPRENTICE this procedur e are in the results section. MAGNESIUM, S Routine 03/15/2021 4:18 Results for AM BODY BUILDER APPRENTICE this procedure are in the results section. COMPREHENSIVE Routine 03/15/2021 4:18 Results for METABOLIC PANEL, S/P AM BODY BUILDER APPRENTICE this pr ocedure are in the results section. GLUCOSE POCT, B Routine 03/14/2021 Results for 11:43 PM BODY BUILDER APPRENTICE this procedure are in the results section. ADULT OXYGEN THERAPY Routine 03/14/2021 8:01 PM BODY BUILDER APPRENTICE PULSE OXIMETRY, Routine 03/14/2021 8:01 CONTINUOUS PM BODY BUILDER APPRENTICE GLUCOSE POCT, B Routine 03/14/2021 6:25 Results f or PM BODY BUILDER APPRENTICE this procedure are in the results section. RESPIRATORY ASSESS AND Routine 03/14/2021 2:00 TREAT PM BODY BUILDER APPRENTICE GLUCOSE POCT, B Routine 03/14/2021 Results for 11:32 AM BODY BUILDER APPRENTICE this procedure are in the results section. PATIENT STATUS STAT 03/14/2021 Results for 11:00 AM BODY BUILDER APPRENTICE this procedure are in the results section. ABG W/COOX STAT 03/14/2021 Results for 11:00 AM BODY BUILDER APPRENTICE this procedure are in the results section. PROTHROMBIN TIME (PT), Routine 03/14/2021 9:22 Re sults for P AM BODY BUILDER APPRENTICE this procedure are in the results section. ADULT OXYGEN THERAPY Routine 03/14/2021 8:01 AM BODY BUILDER APPRENTICE PULSE OXIMETRY, Routine 03/14/2021 8:01 CONTINUOUS AM BODY BUILDER APPRENTICE GLUCOSE POCT, B Routine 03/14/2021 6:28 Results f or AM BODY BUILDER APPRENTICE this procedure are in the results section. PATIENT STATUS Routine 03/14/2021 5:41 Results fo r AM BODY BUILDER APPRENTICE this procedure are in the results section. PH BLOOD GAS Routine 03/14/2021 5:41 Results for AM BODY BUILDER APPRENTICE this procedure are in the results section. ABG W/COOX Routine 03/14/2021 5:41 Results for AM BODY BUILDER APPRENTICE this procedure are in the results section. CBC WITHOUT Routine 03/14/2021 5:41 Results for DIFFERENTIAL, B AM BODY BUILDER APPRENTICE this procedu re are in the results section. PHOSPHORUS Routine 03/14/2021 5:41 Results for (INORGANIC), S AM BODY BUILDER APPRENTICE this procedur e are in the results section. MAGNESIUM, S Routine 03/14/2021 5:41 Results for AM BODY BUILDER APPRENTICE this procedure are in the results section. CALCIUM, IONIZED, S/B Routine 03/14/2021 5:41 Res ults for AM BODY BUILDER APPRENTICE this procedure are in the results section. BASIC METABOLIC PANEL, Routine 03/14/2021 5:41 Re sults for S/P AM BODY BUILDER APPRENTICE this procedure are in the results section. HEPATIC FUNCTION Routine 03/14/2021 5:40 Results for PANEL, S AM BODY BUILDER APPRENTICE this procedure are in the results section. DX CHEST PORTABLE 1 RAD - Routine 03/14/2021 4:33 Resu lts for VIEW (most inpatients AM BODY BUILDER APPRENTICE this proced ure and all are in the outpatients) results section. GLUCOSE POCT, B Routine 03/14/2021 Results for 12:06 AM BODY BUILDER APPRENTICE this procedure are in the results section. ADULT OXYGEN THERAPY Routine 03/13/2021 8:01 PM BODY BUILDER APPRENTICE PULSE OXIMETRY, Routine 03/13/2021 8:01 CONTINUOUS PM BODY BUILDER APPRENTICE HEMOGLOBIN, B Routine 03/13/2021 6:29 Results for PM BODY BUILDER APPRENTICE this procedure are in the results section. GLUCOSE POCT, B Routine 03/13/2021 6:16 Results f or PM BODY BUILDER APPRENTICE this procedure are in the results section. HEMOGLOBIN, B Routine 03/13/2021 4:28 Results for PM BODY BUILDER APPRENTICE this procedure are in the results section. MECHANICAL VENTILATOR Routine 03/13/2021 4:00 PM BODY BUILDER APPRENTICE RESPIRATORY ASSESS AND Routine 03/13/2021 2:00 TREAT PM BODY BUILDER APPRENTICE MECHANICAL VENTILATOR Routine 03/13/2021 12:00 PM BODY BUILDER APPRENTICE GLUCOSE POCT, B Routine 03/13/2021 Results for 11:46 AM BODY BUILDER APPRENTICE this procedure are in the results section. TRANSFUSE RED BLOOD Routine 03/13/2021 CELLS 10:11 AM BODY BUILDER APPRENTICE IRON AND TOT Routine 03/13/2021 8:28 Results for IRON-BINDING CAPACITY, AM BODY BUILDER APPRENTICE this procedure S/P are in the results section. FOLATE, S Routine 03/13/2021 8:28 Results for AM BODY BUILDER APPRENTICE this procedure are in the results section. FERRITIN, S Routine 03/13/2021 8:28 Results for AM BODY BUILDER APPRENTICE this procedure are in the results section. VITAMIN B12 ASSAY, S Routine 03/13/2021 8:28 Resu lts for AM BODY BUILDER APPRENTICE this procedure are in the results section. ADULT OXYGEN THERAPY Routine 03/13/2021 8:01 AM BODY BUILDER APPRENTICE PULSE OXIMETRY, Routine 03/13/2021 8:01 CONTINUOUS AM BODY BUILDER APPRENTICE MECHANICAL VENTILATOR Routine 03/13/2021 8:01 AM BODY BUILDER APPRENTICE PATIENT STATUS Routine 03/13/2021 5:37 Results fo r AM BODY BUILDER APPRENTICE this procedure are in the results section. ABG W/COOX Routine 03/13/2021 5:37 Results for AM BODY BUILDER APPRENTICE this procedure are in the results section. CBC WITH DIFFERENTIAL, Routine 03/13/2021 5:37 Re sults for B AM BODY BUILDER APPRENTICE this procedure are in the results section. TRIGLYCERIDES, S Routine 03/13/2021 5:37 Results for AM BODY BUILDER APPRENTICE this procedure are in the results section. PHOSPHORUS Routine 03/13/2021 5:37 Results for (INORGANIC), S AM BODY BUILDER APPRENTICE this procedur e are in the results section. MAGNESIUM, S Routine 03/13/2021 5:37 Results for AM BODY BUILDER APPRENTICE this procedure are in the results section. AMMONIA Routine 03/13/2021 5:37 Results for AM BODY BUILDER APPRENTICE this procedure are in the results section. COMPREHENSIVE Routine 03/13/2021 5:37 Results for METABOLIC PANEL, S/P AM BODY BUILDER APPRENTICE this pr ocedure are in the results section. DX CHEST PORTABLE 1 RAD - Routine 03/13/2021 4:32 Resu lts for VIEW (most inpatients AM BODY BUILDER APPRENTICE this proced ure and all are in the outpatients) results section. MECHANICAL VENTILATOR Routine 03/13/2021 4:00 AM BODY BUILDER APPRENTICE BASIC METABOLIC PANEL, Timed 03/13/2021 1:20 Re sults for S/P AM BODY BUILDER APPRENTICE this procedure are in the results section. HEMOGLOBIN, B Timed 03/13/2021 Results for 12:11 AM BODY BUILDER APPRENTICE this procedure are in the results section. MECHANICAL VENTILATOR Routine 03/13/2021 12:04 AM BODY BUILDER APPRENTICE GLUCOSE POCT, B Routine 03/12/2021 Results for 11:44 PM BODY BUILDER APPRENTICE this procedure are in the results section. ETHYL GLUCURONIDE SCRN Routine 03/12/2021 Resul ts for W/REFLEX, U 11:12 PM BODY BUILDER APPRENTICE this procedure are in the results section. LDA ANE ENDOTRACHEAL Routine 03/12/2021 Change Mental Result s for AIRWAY 10:30 PM BODY BUILDER APPRENTICE Status this procedure Cirrhosis are in the Alcoholic (HCC) results section. [place] INTUB W ETT Routine 03/12/2021 Change Mental Results for 10:30 PM BODY BUILDER APPRENTICE Status this procedure Cirrhosis are in the Alcoholic (HCC) results section. ADULT OXYGEN THERAPY Routine 03/12/2021 8:01 PM BODY BUILDER APPRENTICE PULSE OXIMETRY, Routine 03/12/2021 8:01 CONTINUOUS PM BODY BUILDER APPRENTICE MECHANICAL VENTILATOR Routine 03/12/2021 8:01 PM BODY BUILDER APPRENTICE GLUCOSE POCT, B Routine 03/12/2021 6:11 Results f or PM BODY BUILDER APPRENTICE this procedure are in the results section. [place] PARACENTESIS ABD WO Routine 03/12/2021 6:02 Change Mental R esults for IMG PM BODY BUILDER APPRENTICE Status this procedure Cirrhosis are in the Alcoholic (HCC) results section. THORACENTESIS Routine 03/12/2021 6:02 Change Mental Results fo r PM BODY BUILDER APPRENTICE Status this procedure Cirrhosis are in the Alcoholic (HCC) results section. MC ANE CENTRAL LINE Routine 03/12/2021 6:02 Change Mental Resu lts for GENERIC PERFORMABLE PM BODY BUILDER APPRENTICE Status this procedure Cirrhosis are in the Alcoholic (HCC) results section. LDA ANE CENTRAL LINE Routine 03/12/2021 6:02 Change Mental Res ults for TRIPLE LUMEN PM BODY BUILDER APPRENTICE Status this procedure Cirrhosis are in the Alcoholic (HCC) results section. [place] US GUIDE VASC Routine 03/12/2021 6:02 Change Mental Results for ACCESS PM BODY BUILDER APPRENTICE Status this procedure Cirrhosis are in the Alcoholic (HCC) results section. [place] INS NON-ALEN CVC Routine 03/12/2021 6:02 Change Mental Resul ts for >5YR PM BODY BUILDER APPRENTICE Status this procedure Cirrhosis are in the Alcoholic (HCC) results section. PH BLOOD GAS STAT 03/12/2021 5:35 Results for PM BODY BUILDER APPRENTICE this procedure are in the results section. HEMOGLOBIN, B STAT 03/12/2021 5:35 Results for PM BODY BUILDER APPRENTICE this procedure are in the results section. PHOSPHORUS STAT 03/12/2021 5:35 Results for (INORGANIC), S PM BODY BUILDER APPRENTICE this procedur e are in the results section. MAGNESIUM, S STAT 03/12/2021 5:35 Results for PM BODY BUILDER APPRENTICE this procedure are in the results section. CALCIUM, IONIZED, S/B STAT 03/12/2021 5:35 Res ults for PM BODY BUILDER APPRENTICE this procedure are in the results section. AMMONIA STAT 03/12/2021 5:35 Results for PM BODY BUILDER APPRENTICE this procedure are in the results section. COMPREHENSIVE STAT 03/12/2021 5:35 Results for METABOLIC PANEL, S/P PM BODY BUILDER APPRENTICE this pr ocedure are in the results section. TRANSFUSE RED BLOOD Routine 03/12/2021 4:08 CELLS PM BODY BUILDER APPRENTICE MECHANICAL VENTILATOR Routine 03/12/2021 4:00 PM BODY BUILDER APPRENTICE PROTEIN, TOTAL, BF Routine 03/12/2021 3:46 Result s for PM BODY BUILDER APPRENTICE this procedure are in the results section. BACTERIAL CULTURE, Routine 03/12/2021 3:46 Result s for AEROBIC + SUSC PM BODY BUILDER APPRENTICE this procedur e are in the results section. CELL COUNT AND Routine 03/12/2021 3:46 Results fo r DIFFERENTIAL, BF PM BODY BUILDER APPRENTICE this proced ure are in the results section. GRAM STAIN Routine 03/12/2021 3:46 Results for PM BODY BUILDER APPRENTICE this procedure are in the results section. BACTERIAL CULTURE, Routine 03/12/2021 3:46 Result s for ANAEROBIC + SUSC PM BODY BUILDER APPRENTICE this proced ure are in the results section. ALBUMIN, BODY FLUID Routine 03/12/2021 3:46 Resul ts for PM BODY BUILDER APPRENTICE this procedure are in the results section. AUTOIMMUNE LIVER Routine 03/12/2021 2:57 Results for DISEASE PANEL, S PM BODY BUILDER APPRENTICE this proced ure are in the results section. [id number], S Routine 03/12/2021 2:57 Re sults for PM BODY BUILDER APPRENTICE this procedure are in the results section. CERULOPLASMIN, S Routine 03/12/2021 2:57 Results for PM BODY BUILDER APPRENTICE this procedure are in the results section. GLUCOSE POCT, B Routine 03/12/2021 2:06 Results f or PM BODY BUILDER APPRENTICE this procedure are in the results section. RESPIRATORY ASSESS AND Routine 03/12/2021 2:00 TREAT PM BODY BUILDER APPRENTICE CT ABDOMEN PELVIS WITH RAD - Emergent 03/12/2021 1:50 Results for IV CONTRAST (Fastest; for the PM BODY BUILDER APPRENTICE this proce dure most critically are in the ill patients) results section. CT CHEST WITH IV RAD - Emergent 03/12/2021 1:50 Result s for CONTRAST (Fastest; for the PM BODY BUILDER APPRENTICE this proce dure most critically are in the ill patients) results section. CT HEAD WITHOUT IV RAD - Emergent 03/12/2021 1:49 Resu lts for CONTRAST (Fastest; for the PM BODY BUILDER APPRENTICE this proce dure most critically are in the ill patients) results section. CYTOLOGY NON-LEADER WRITER Routine 03/12/2021 1:11 Results for PM BODY BUILDER APPRENTICE this procedure are in the results section. ECG Routine 03/12/2021 1:01 Results for PM BODY BUILDER APPRENTICE this procedure are in the results section. DX CHEST PORTABLE 1 RAD - Semiurgent 03/12/2021 1:00 R esults for VIEW (Fast; most ED PM BODY BUILDER APPRENTICE this procedur e patients; some are in the inpatients) results section. TESTING LOCATION Routine 03/12/2021 Results for 12:59 PM BODY BUILDER APPRENTICE this procedure are in the results section. LACTATE, B STAT 03/12/2021 Results for 12:59 PM BODY BUILDER APPRENTICE this procedure are in the results section. PATIENT STATUS STAT 03/12/2021 Results for 12:59 PM BODY BUILDER APPRENTICE this procedure are in the results section. ABG W/COOX STAT 03/12/2021 Results for 12:59 PM BODY BUILDER APPRENTICE this procedure are in the results section. PREPARE RED BLOOD Routine 03/12/2021 CELLS 12:59 PM BODY BUILDER APPRENTICE PREPARE RED BLOOD Routine 03/12/2021 CELLS 12:59 PM BODY BUILDER APPRENTICE PREPARE RED BLOOD Routine 03/12/2021 CELLS 12:59 PM BODY BUILDER APPRENTICE PREPARE RED BLOOD Routine 03/12/2021 CELLS 12:59 PM BODY BUILDER APPRENTICE TYPE AND SCREEN Routine 03/12/2021 Results for 12:59 PM BODY BUILDER APPRENTICE this procedure are in the results section. LACTATE DEHYDROGENASE Routine 03/12/2021 Result s for (LD), S 12:59 PM BODY BUILDER APPRENTICE this procedure are in the results section. BILIRUBIN DIRECT, S/P Routine 03/12/2021 Result s for 12:59 PM BODY BUILDER APPRENTICE this procedure are in the results section. CYTOLOGY NON-LEADER WRITER Routine 03/12/2021 Results for 12:39 PM BODY BUILDER APPRENTICE this procedure are in the results section. PROTEIN, TOTAL, BF Routine 03/12/2021 Results f or 12:35 PM BODY BUILDER APPRENTICE this procedure are in the results section. LACTATE DEHYDROGENASE Routine 03/12/2021 Result s for (LD), BF 12:35 PM BODY BUILDER APPRENTICE this procedure are in the results section. BACTERIAL CULTURE, STAT 03/12/2021 Results f or AEROBIC + SUSC 12:34 PM BODY BUILDER APPRENTICE this procedur e are in the results section. CELL COUNT AND STAT 03/12/2021 Results for DIFFERENTIAL, BF 12:34 PM BODY BUILDER APPRENTICE this proced ure are in the results section. GRAM STAIN STAT 03/12/2021 Results for 12:34 PM BODY BUILDER APPRENTICE this procedure are in the results section. BACTERIAL CULTURE, STAT 03/12/2021 Results f or ANAEROBIC + SUSC 12:34 PM BODY BUILDER APPRENTICE this proced ure are in the results section. GLUCOSE, BODY FLUID STAT 03/12/2021 Results for 12:34 PM BODY BUILDER APPRENTICE this procedure are in the results section. MECHANICAL VENTILATOR Routine 03/12/2021 12:00 PM BODY BUILDER APPRENTICE ADULT OXYGEN THERAPY Routine 03/12/2021 11:32 AM BODY BUILDER APPRENTICE ADULT OXYGEN THERAPY Routine 03/12/2021 11:32 AM BODY BUILDER APPRENTICE ADULT OXYGEN THERAPY Routine 03/12/2021 11:32 AM BODY BUILDER APPRENTICE MECHANICAL VENTILATOR Routine 03/12/2021 11:32 AM BODY BUILDER APPRENTICE MECHANICAL VENTILATOR Routine 03/12/2021 11:32 AM BODY BUILDER APPRENTICE MECHANICAL VENTILATOR Routine 03/12/2021 11:32 AM BODY BUILDER APPRENTICE MECHANICAL VENTILATOR Routine 03/12/2021 11:32 AM BODY BUILDER APPRENTICE MECHANICAL VENTILATOR Routine 03/12/2021 11:32 AM BODY BUILDER APPRENTICE INFLUENZA A/B AND RSV, Routine 03/12/2021 Resul ts for PCR, VARIES 11:00 AM BODY BUILDER APPRENTICE this procedure are in the results section. SARS CORONAVIRUS-2 Routine 03/12/2021 Results f or RNA, V 11:00 AM BODY BUILDER APPRENTICE this procedure are in the results section. LDA ANE ARTERIAL LINE Routine 03/12/2021 Change Mental Resul ts for INSERTION 10:45 AM BODY BUILDER APPRENTICE Status this procedure Cirrhosis are in the Alcoholic (HCC) results section. [place] ARTL CATH/CNULA Routine 03/12/2021 Change Mental Results for MONITOR PERC 10:45 AM BODY BUILDER APPRENTICE Status this procedure Cirrhosis are in the Alcoholic (HCC) results section. PULSE OXIMETRY, Routine 03/12/2021 8:02 CONTINUOUS AM BODY BUILDER APPRENTICE LACTATE, B Timed 03/12/2021 7:10 Results for AM BODY BUILDER APPRENTICE this procedure are in the results section. PATIENT STATUS STAT 03/12/2021 7:10 Results fo r AM BODY BUILDER APPRENTICE this procedure are in the results section. ABG W/COOX STAT 03/12/2021 7:10 Results for AM BODY BUILDER APPRENTICE this procedure are in the results section. BACTERIA / RAUDEL Routine 03/12/2021 7:10 Result s for CULTURE, BLOOD AM BODY BUILDER APPRENTICE this procedur e are in the results section. DX CHEST PORTABLE 1 RAD - Semiurgent 03/12/2021 6:24 R esults for VIEW (Fast; most ED AM BODY BUILDER APPRENTICE this procedur e patients; some are in the inpatients) results section. URINALYSIS WITH Routine 03/12/2021 6:23 Results f or MICROSCOPIC IF AM BODY BUILDER APPRENTICE this procedur e INDICATED, U are in the results section. HC URINALYSIS AUTO WO Routine 03/12/2021 6:23 Res ults for MICRO AM BODY BUILDER APPRENTICE this procedure are in the results section. DRUG SCREEN URINE Routine 03/12/2021 6:23 Results for AM BODY BUILDER APPRENTICE this procedure are in the results section. NASAL SCREEN FOR MRSA Routine 03/12/2021 6:23 Res ults for BY RAPID PCR AM BODY BUILDER APPRENTICE this procedure are in the results section. HCV AB W/REFLEX TO HCV Timed 03/12/2021 5:58 Re sults for PCR, S AM BODY BUILDER APPRENTICE this procedure are in the results section. HEPATITIS A IGM AB Timed 03/12/2021 5:58 Result s for AM BODY BUILDER APPRENTICE this procedure are in the results section. HEP B CORE AB, IGM Timed 03/12/2021 5:58 Result s for AM BODY BUILDER APPRENTICE this procedure are in the results section. HEPATITIS B SURFACE Timed 03/12/2021 5:58 Resul ts for ANTIGEN AM BODY BUILDER APPRENTICE this procedure are in the results section. AMMONIA Timed 03/12/2021 5:58 Results for AM BODY BUILDER APPRENTICE this procedure are in the results section. LACTATE, B STAT 03/12/2021 5:57 Results for AM BODY BUILDER APPRENTICE this procedure are in the results section. ETHANOL, S STAT 03/12/2021 5:57 Results for AM BODY BUILDER APPRENTICE this procedure are in the results section. PH BLOOD GAS STAT 03/12/2021 5:57 Results for AM BODY BUILDER APPRENTICE this procedure are in the results section. NT-PRO B-TYPE STAT 03/12/2021 5:57 Results for NATRIURETIC PEPTIDE AM BODY BUILDER APPRENTICE this pro cedure (BNP), S are in the results section. BACTERIA / RAUDEL Routine 03/12/2021 5:57 Result s for CULTURE, BLOOD AM BODY BUILDER APPRENTICE this procedur e are in the results section. PROTHROMBIN TIME (PT), STAT 03/12/2021 5:57 Re sults for P AM BODY BUILDER APPRENTICE this procedure are in the results section. CBC WITHOUT STAT 03/12/2021 5:57 Results for DIFFERENTIAL, B AM BODY BUILDER APPRENTICE this procedu re are in the results section. HUMAN CHORIONIC STAT 03/12/2021 5:57 Results f or GONADOTROPIN (HCG), AM BODY BUILDER APPRENTICE this pro cedure EDDI, are in the results section. THYROID-STIMULATING STAT 03/12/2021 5:57 Resul ts for HORMONE-SENSITIVE AM BODY BUILDER APPRENTICE this proce dure (S-TSH) are in the results section. PHOSPHORUS STAT 03/12/2021 5:57 Results for (INORGANIC), S AM BODY BUILDER APPRENTICE this procedur e are in the results section. MAGNESIUM, S STAT 03/12/2021 5:57 Results for AM BODY BUILDER APPRENTICE this procedure are in the results section. LIPASE, S/P STAT 03/12/2021 5:57 Results for AM BODY BUILDER APPRENTICE this procedure are in the results section. CALCIUM, IONIZED, S/B STAT 03/12/2021 5:57 Res ults for AM BODY BUILDER APPRENTICE this procedure are in the results section. ACETAMINOPHEN LEVEL, S STAT 03/12/2021 5:57 Re sults for AM BODY BUILDER APPRENTICE this procedure are in the results section. SALICYLATE LEVEL, S STAT 03/12/2021 5:57 Resul ts for AM BODY BUILDER APPRENTICE this procedure are in the results section. COMPREHENSIVE STAT 03/12/2021 5:57 Results for METABOLIC PANEL, S/P AM BODY BUILDER APPRENTICE this pr ocedure are in the results section. GLUCOSE POCT, B Routine 03/12/2021 5:48 Results f or AM BODY BUILDER APPRENTICE this procedure are in the results section. RESPIRATORY ASSESS AND Routine 03/12/2021 5:37 TREAT AM BODY BUILDER APPRENTICE PULSE OXIMETRY, Routine 03/12/2021 5:37 CONTINUOUS AM BODY BUILDER APPRENTICE PULSE OXIMETRY, Routine 03/12/2021 5:37 CONTINUOUS AM BODY BUILDER APPRENTICE PULSE OXIMETRY, Routine 03/12/2021 5:37 CONTINUOUS AM BODY BUILDER APPRENTICE documented in this encounter Results (ABNORMAL) Prothrombin Time (PT) (03/24/2021 6:15 AM BODY BUILDER APPRENTICE) [facility] Method Time Signature Prothrombin 30.1 (H) 9.4 - 12.5 03/24/2021 MK[facility] Time, P sec 6:52 AM BODY BUILDER APPRENTICE INR 2.7 0.9 - 1.1 03/24/2021 MKTO 6:52 AM BODY BUILDER APPRENTICE Comment: ----ADDITIONAL INFORMATION---- Standard intensity warfarin therapeutic range: 2.0 to 3.0 ?? High intensity warfarin therapeutic rang e: 2.5 to 3.5 Specimen Anatomical Collection Method Collection Time Receive d Time (Source) Location / / Volume Laterality Blood (Blood, 03/24/2021 6:15 AM 03/24/20 6:21 Venous) BODY BUILDER APPRENTICE AM BODY BUILDER APPRENTICE Darian Thomas M.D., J.D. LAB BLOOD ADD-ON Performing Organization Address City/State/ZIP Code Phon e Number [facility]- [address] [place] [phone] [place] [address] System in [place] [address] [facility] (ABNORMAL) Comprehensive Metabolic Panel (03/24/2021 6:15 AM BODY BUILDER APPRENTICE) Analysis Performed At Patho logist Time Signature Potassium, P 4.1 3.6 - 5.2 03/24/2021 [facility] mmol/L 6:54 AM BODY BUILDER APPRENTICE Sodium, P 139 135 - 145 03/24/2021 [facility] mmol/L 6:54 AM BODY BUILDER APPRENTICE Chloride, P 108 (H) 98 - 107 03/24/2021 [facility] mmol/L 6:54 AM BODY BUILDER APPRENTICE Bicarbonate, P 18 (L) 22 - 29 03/24/2021 [facility] mmol/L 6:54 AM BODY BUILDER APPRENTICE Anion Gap, P 13 7 - 15 03/24/2021 [facility] 6:54 AM BODY BUILDER APPRENTICE BUN (Blood Urea 6 6 - 21 03/24/2021 MK[facility] Nitrogen), P mg/dL 6:54 AM BODY BUILDER APPRENTICE Creatinine 0.35 (L) 0.59 - 03/24/2021 [facility] 1.04 mg/dL 6:54 AM BODY BUILDER APPRENTICE eGFR-Black/Afri >90 >=60 03/24/2021 MKTO can Cambodian mL/min/BSA 6:54 AM BODY BUILDER APPRENTICE Comment: ----ADDITIONAL INFORMATION---- Estimated GFR calculated using the 2009 CKD_EPI creatinine equation. eGFR Non-Black/ >90 >=60 mL/min/BSA 03/24/2021 6:54 AM BODY BUILDER APPRENTICE MKTO Comment: ----ADDITIONAL INFORMATION---- Estimated GFR calculated using the 2009 CKD_EPI creatinine equation. Calcium, Total, P 10.3 (H) 8.6 - 10.0 mg/dL 03/24/2021 6:54 AM BODY BUILDER APPRENTICE MKTO Glucose, P 120 70 - 140 mg/dL 03/24/2021 6:54 AM BODY BUILDER APPRENTICE M KTO Protein, Total, P 6.5 6.3 - 7.9 g/dL 03/24/2021 6:54 A M BODY BUILDER APPRENTICE [place] Albumin, P 5.3 (H) 3.5 - 5.0 g/dL 03/24/2021 6:54 AM BODY BUILDER APPRENTICE M KTO Aspartate Aminotransferase 46 (H) 8 - 43 U/L 03/24/2021 6 :54 AM BODY BUILDER APPRENTICE [place] (AST), P Alkaline Phosphatase, P 77 35 - 104 U/L 03/24/2021 6: 54 AM BODY BUILDER APPRENTICE MK[facility] Alanine Aminotransferase 20 7 - 45 U/L 03/24/2021 6:5 4 AM BODY BUILDER APPRENTICE [facility] (ALT), P Bilirubin, Total, P 7.8 (H) <=1.2 mg/dL 03/24/2021 6:54 AM BODY BUILDER APPRENTICE MKTO Specimen Anatomical Collection Method Collection Time Receive d Time (Source) Location / / Volume Laterality Blood (Blood, 03/24/2021 6:15 AM 03/24/20 6:21 Venous) BODY BUILDER APPRENTICE AM BODY BUILDER APPRENTICE Darian Thomas M.D., J.D. LAB BLOOD ADD-ON Performing Organization Address City/State/ZIP Code Phon e Number [facility]- [address] [place] [phone] [place] [address] [place] [address] [address] (ABNORMAL) CBC without Differential (03/24/2021 6:15 AM BODY BUILDER APPRENTICE) [facility] gist Method Time Signature Hemoglobin 8.7 (L) 11.6 - 03/24/2021 [facility] 15.0 g/dL 6:33 AM BODY BUILDER APPRENTICE Hematocrit 26.3 (L) 35.5 - 03/24/2021 [facility] 44.9 % 6:33 AM BODY BUILDER APPRENTICE Erythrocytes 2.80 (L) 3.92 - 03/24/2021 [facility] 5.13 6:33 AM BODY BUILDER APPRENTICE x10(12)/L MCV 93.9 78.2 - 03/24/2021 [facility] 97.9 fL 6:33 AM BODY BUILDER APPRENTICE RBC Distrib Width 21.7 (H) 12.2 - 03/24/2021 MKTO 16.1 % 6:33 AM BODY BUILDER APPRENTICE Platelet Count 100 (L) 157 - 371 03/24/2021 [facility] x10(9)/L 6:33 AM BODY BUILDER APPRENTICE Leukocytes 10.0 (H) 3.4 - 9.6 03/24/2021 [facility] x10(9)/L 6:33 AM BODY BUILDER APPRENTICE Specimen Anatomical Collection Method Collection Time Receive d Time (Source) Location / / Volume Laterality Blood (Blood, 03/24/2021 6:15 AM 11/22/20 21 6:21 Venous) BODY BUILDER APPRENTICE AM BODY BUILDER APPRENTICE Darian Thomas M.D., J.D. LAB BLOOD ADD-ON Performing Organization Address City/State/ZIP Code Phon e Number [facility]- [address] [place] [phone] [place] [address] System in [place] [address] [facility] Zinc (03/24/2021 6:15 AM BODY BUILDER APPRENTICE) athologist Signature Zinc, S 0.66 0.66 - 1.10 03/25/2021 SDSC mcg/mL 10:45 AM BODY BUILDER APPRENTICE Comment: ----ADDITIONAL INFORMATION---- This test was developed and its performa nce characteristics determined by [facility] in a manner consistent with CLIA requirements. This test has not been cleared or approved by the [place] and Drug Administration. Specimen Anatomical Collection Method Collection Time Receive d Time (Source) Location / / Volume Laterality Blood (Blood, 03/24/2021 6:15 AM 03/25/20 8:18 Venous) BODY BUILDER APPRENTICE AM BODY BUILDER APPRENTICE Darian Thomas M.D., J.D. LAB BLOOD NON ADD-ON Performing Organization Address City/State/ZIP Code Phon e Number [facility] [address] [place] [address] [place] [address] Laboratory Medicine and Pathology [address] [place] [address] Dr. CHAP[place] (ABNORMAL) Vitamin A and Vitamin E (03/24/2021 6:15 AM BODY BUILDER APPRENTICE) athologist Signature Vitamin A <5.0 (L) 32.5 - 78.0 03/26/2021 SDSC mcg/dL 10:49 AM BODY BUILDER APPRENTICE Comment: In this sample, the retinol (vitamin A) level indicates a severe deficiency. ----ADDITIONAL INFORMATION---- This test was developed and its performa nce characteristics determined by [facility] in a manner consistent with CLIA requirements. This test has not been cleared or approved by the [place] and Drug Administration. A-Tocopherol, Vitamin E 5.4 (L) 5.5 - 17.0 mg/L 03/27/2021 4:54 AM BODY BUILDER APPRENTICE [facility] Specimen Anatomical Collection Method Collection Time Receive d Time (Source) Location / / Volume Laterality Blood (Blood, 03/24/2021 6:15 AM 03/25/20 3:48 Venous) BODY BUILDER APPRENTICE PM BODY BUILDER APPRENTICE Darian Thomas M.D., J.D. LAB BLOOD NON ADD-ON Performing Organization Address City/[facility]/ZIP Code Phon e Number [facility] [address] [place], [place] [address] [place] [address] [place] [address] Laboratory Medicine and Pathology [address] [place] Transfuse Red Blood Cells : (03/23/2021 5:52 PM BODY BUILDER APPRENTICE) Darian Thomas M.D., J.D. BLOOD TRANSFUSION ORDERAB LES Transfuse Red Blood Cells : , 1 Units (03/23/2021 5:52 PM BODY BUILDER APPRENTICE) Darian Thomas M.D., J.D. BLOOD TRANSFUSION ORDERAB LES Testing Location (03/23/2021 1:12 PM BODY BUILDER APPRENTICE) P athologist Signature Testing [facility] DEFAULT 03/23/2021 MK[facility] Location 1:22 PM BODY BUILDER APPRENTICE Specimen Anatomical Collection Method Collection Time Receive d Time (Source) Location / / Volume Laterality Blood 03/23/2021 1:12 PM 1:21 BODY BUILDER APPRENTICE PM BODY BUILDER APPRENTICE Darian Thomas M.D., J.D. LAB BLOOD BANK TEST ORDER HARVEY Performing Organization Address [facility] Phon e Number [facility]- [address] [place] [phone] [place] [address] Type and Screen (with reflex Antibody ID) (03/23/2021 1:12 PM BODY BUILDER APPRENTICE) Patholo gist Method Time Signature ABO Group B 03/23/2021 MKTO 2:01 PM BODY BUILDER APPRENTICE Rh Type POS 03/23/2021 MKTO 2:01 PM BODY BUILDER APPRENTICE Antibody Screen NEG 03/23/2021 MKTO 2:01 PM BODY BUILDER APPRENTICE Type & Screen 03/26/2021 03/23/2021 [facility] Expiration 23:59 2:01 PM BODY BUILDER APPRENTICE ELXM Eligible Y 03/23/2021 MKTO 2:01 PM BODY BUILDER APPRENTICE Specimen Anatomical Collection Method Collection Time Receive d Time (Source) Location / / Volume Laterality Blood (Blood, 03/23/2021 1:12 PM 03/23/20 1:21 Venous) BODY BUILDER APPRENTICE PM BODY BUILDER APPRENTICE Darian Thomas M.D., J.D. LAB BLOOD BANK TEST ORDER HARVEY Performing Organization Address City/[facility] Phon e Number [facility]- [address] [place] [phone] [place] [address] (ABNORMAL) Phosphorus Inorganic (03/23/2021 6:43 AM BODY BUILDER APPRENTICE) P athologist Signature Phosphorus 2.4 (L) 2.5 - 4.5 03/23/2021 MKTO (Inorganic), P mg/dL 7:40 AM BODY BUILDER APPRENTICE Specimen Anatomical Collection Method Collection Time Receive d Time (Source) Location / / Volume Laterality Blood (Blood, 03/23/2021 6:43 AM 03/23/20 6:58 Venous) BODY BUILDER APPRENTICE AM BODY BUILDER APPRENTICE Darian Thomas M.D., J.D. LAB BLOOD ADD-ON Performing Organization Address City/[facility] Phon e Number [facility]- [address] [place] [phone] [place] [address] Magnesium (03/23/2021 6:43 AM BODY BUILDER APPRENTICE) P athologist Signature Magnesium, P 1.9 1.7 - 2.3 03/23/2021 MK[facility] mg/dL 7:40 AM BODY BUILDER APPRENTICE Specimen Anatomical Collection Method Collection Time Receive d Time (Source) Location / / Volume Laterality Blood (Blood, 03/23/2021 6:43 AM 03/23/20 6:58 Venous) BODY BUILDER APPRENTICE AM BODY BUILDER APPRENTICE Darian Thomas M.D., J.D. LAB BLOOD ADD-ON Performing Organization Address City/[facility]/ZIP Code Phon e Number [facility]- [address] [place] [phone] [place] [address] (ABNORMAL) Prothrombin Time (PT) (03/23/2021 6:43 AM BODY BUILDER APPRENTICE) [facility] Method Time Signature Prothrombin 31.8 (H) 9.4 - 12.5 03/23/2021 MKTO Time, P sec 7:55 AM BODY BUILDER APPRENTICE INR 2.8 0.9 - 1.1 03/23/2021 MKTO 7:55 AM BODY BUILDER APPRENTICE Comment: ----ADDITIONAL INFORMATION---- Standard intensity warfarin therapeutic range: 2.0 to 3.0 ?? High intensity warfarin therapeutic rang e: 2.5 to 3.5 Specimen Anatomical Collection Method Collection Time Receive d Time (Source) Location / / Volume Laterality Blood (Blood, 03/23/2021 6:43 AM 03/23/20 6:58 Venous) BODY BUILDER APPRENTICE AM BODY BUILDER APPRENTICE Darian Thomas M.D., J.D. LAB BLOOD ADD-ON Performing Organization Address City/State/ZIP Code Phon e Number [facility]- [address] [place] [phone] [place] [address] [place] [address] [address] (ABNORMAL) Comprehensive Metabolic Panel (03/23/2021 6:43 AM BODY BUILDER APPRENTICE) Analysis Performed At [facility] logist Time Signature Potassium, P 3.4 (L) 3.6 - 5.2 03/23/2021 MKTO mmol/L 7:40 AM BODY BUILDER APPRENTICE Sodium, P 139 135 - 145 03/23/2021 MKTO mmol/L 7:40 AM BODY BUILDER APPRENTICE Chloride, P 106 98 - 107 03/23/2021 [facility] mmol/L 7:40 AM BODY BUILDER APPRENTICE Bicarbonate, P 19 (L) 22 - 29 03/23/2021 [facility] mmol/L 7:40 AM BODY BUILDER APPRENTICE Anion Gap, P 14 7 - 15 03/23/2021 MKTO 7:40 AM BODY BUILDER APPRENTICE BUN (Blood Urea 6 6 - 21 03/23/2021 MKTO Nitrogen), P mg/dL 7:40 AM BODY BUILDER APPRENTICE Creatinine 0.37 (L) 0.59 - 03/23/2021 MKTO 1.04 mg/dL 7:40 AM BODY BUILDER APPRENTICE eGFR-Black/Afri >90 >=60 03/23/2021 MKTO can Cambodian mL/min/BSA 7:40 AM BODY BUILDER APPRENTICE Comment: ----ADDITIONAL INFORMATION---- Estimated GFR calculated using the 2009 CKD_EPI creatinine equation. eGFR Non-Black/ >90 >=60 mL/min/BSA 03/23/2021 7:40 AM BODY BUILDER APPRENTICE MKTO Comment: ----ADDITIONAL INFORMATION---- Estimated GFR calculated using the 2009 CKD_EPI creatinine equation. Calcium, Total, P 10.3 (H) 8.6 - 10.0 mg/dL 03/23/2021 7:40 AM BODY BUILDER APPRENTICE MKTO Glucose, P 152 (H) 70 - 140 mg/dL 03/23/2021 7:40 AM BODY BUILDER APPRENTICE M KTO Protein, Total, P 6.3 6.3 - 7.9 g/dL 03/23/2021 7:40 A M BODY BUILDER APPRENTICE MKTO Albumin, P 5.3 (H) 3.5 - 5.0 g/dL 03/23/2021 7:40 AM BODY BUILDER APPRENTICE M KTO Aspartate Aminotransferase 51 (H) 8 - 43 U/L 03/23/2021 7 :40 AM BODY BUILDER APPRENTICE MKTO (AST), P Alkaline Phosphatase, P 73 35 - 104 U/L 03/23/2021 7: 40 AM BODY BUILDER APPRENTICE MKTO Alanine Aminotransferase 21 7 - 45 U/L 03/23/2021 7:4 0 AM BODY BUILDER APPRENTICE MK[facility] (ALT), P Bilirubin, Total, P 6.1 (H) <=1.2 mg/dL 03/23/2021 7:40 AM BODY BUILDER APPRENTICE MKTO Specimen Anatomical Collection Method Collection Time Receive d Time (Source) Location / / Volume Laterality Blood (Blood, 03/23/2021 6:43 AM 03/23/20 6:58 Venous) BODY BUILDER APPRENTICE AM BODY BUILDER APPRENTICE Darian Thomas M.D., J.D. LAB BLOOD ADD-ON Performing Organization Address City/State/ZIP Code Phon e Number [facility]- [address] [place] [phone] [place] [address] [address] (ABNORMAL) CBC without Differential (03/23/2021 6:43 AM BODY BUILDER APPRENTICE) [facility] gist Method Time Signature Hemoglobin 6.8 (L) 11.6 - 03/23/2021 MKTO 15.0 g/dL 7:45 AM BODY BUILDER APPRENTICE Hematocrit 21.0 (L) 35.5 - 03/23/2021 MKTO 44.9 % 7:45 AM BODY BUILDER APPRENTICE Erythrocytes 2.28 (L) 3.92 - 03/23/2021 MKTO 5.13 7:45 AM BODY BUILDER APPRENTICE x10(12)/L MCV 92.1 78.2 - 03/23/2021 MKTO 97.9 fL 7:45 AM BODY BUILDER APPRENTICE RBC Distrib Width 22.2 (H) 12.2 - 03/23/2021 MKTO 16.1 % 7:45 AM BODY BUILDER APPRENTICE Platelet Count 98 (L) 157 - 371 03/23/2021 MKTO x10(9)/L 7:45 AM BODY BUILDER APPRENTICE Leukocytes 9.2 3.4 - 9.6 03/23/2021 MKTO x10(9)/L 7:45 AM BODY BUILDER APPRENTICE Specimen Anatomical Collection Method Collection Time Receive d Time (Source) Location / / Volume Laterality Blood (Blood, 03/23/2021 6:43 AM 03/23/20 6:58 Venous) BODY BUILDER APPRENTICE AM BODY BUILDER APPRENTICE Darian Thomas M.D., J.D. LAB BLOOD ADD-ON Performing Organization Address [facility] Phon e Number [address] [phone] [place] [address] (ABNORMAL) Lactate, B (03/22/2021 8:38 AM BODY BUILDER APPRENTICE) P athologist Signature Lactate, B 2.3 (H) 0.5 - 2.2 03/22/2021 MKTO mmol/L 8:58 AM BODY BUILDER APPRENTICE Specimen Anatomical Collection Method Collection Time Receive d Time (Source) Location / / Volume Laterality Blood 03/22/2021 8:38 AM 8:50 BODY BUILDER APPRENTICE AM BODY BUILDER APPRENTICE Darian Thomas M.D., J.D. LAB BLOOD NON ADD-ON Performing Organization Address [facility] Phon e Number [address] [phone] [place] [address] [address] (ABNORMAL) Ammonia (03/22/2021 8:38 AM BODY BUILDER APPRENTICE) P athologist Signature Ammonia, P 60 (H) <=51 03/22/2021 MKTO mcmol/L 9:11 AM BODY BUILDER APPRENTICE Specimen Anatomical Collection Method Collection Time Receive d Time (Source) Location / / Volume Laterality Blood (Blood, 03/22/2021 8:38 AM 03/22/20 8:50 Venous) BODY BUILDER APPRENTICE AM BODY BUILDER APPRENTICE Darian Thomas M.D., J.D. LAB BLOOD NON ADD-ON Performing Organization Address City/[facility] Phon e Number [facility]- [address] [place] [phone] [place] [address] (ABNORMAL) Prothrombin Time (PT) (03/22/2021 8:38 AM BODY BUILDER APPRENTICE) Patholo gist Method Time Signature Prothrombin 30.5 (H) 9.4 - 12.5 03/22/2021 MKTO Time, P sec 9:24 AM BODY BUILDER APPRENTICE INR 2.7 0.9 - 1.1 03/22/2021 MKTO 9:24 AM BODY BUILDER APPRENTICE Comment: ----ADDITIONAL INFORMATION---- Standard intensity warfarin therapeutic range: 2.0 to 3.0 ?? High intensity warfarin therapeutic rang e: 2.5 to 3.5 Specimen Anatomical Collection Method Collection Time Receive d Time (Source) Location / / Volume Laterality Blood (Blood, 03/22/2021 8:38 AM 03/22/20 8:50 Venous) BODY BUILDER APPRENTICE AM BODY BUILDER APPRENTICE Darian Thomas M.D., J.D. LAB BLOOD ADD-ON Performing Organization Address City/[facility] Code Phon e Number [facility]- [address] [place] [phone] [place] [address] [address] in [address] (ABNORMAL) Comprehensive Metabolic Panel (03/22/2021 8:38 AM BODY BUILDER APPRENTICE) Analysis Performed At Patho logist Time Signature Potassium, P 3.4 (L) 3.6 - 5.2 03/22/2021 MKTO mmol/L 9:20 AM BODY BUILDER APPRENTICE Sodium, P 139 135 - 145 03/22/2021 MKTO mmol/L 9:20 AM BODY BUILDER APPRENTICE Chloride, P 105 98 - 107 03/22/2021 MKTO mmol/L 9:20 AM BODY BUILDER APPRENTICE Bicarbonate, P 19 (L) 22 - 29 03/22/2021 MKTO mmol/L 9:20 AM BODY BUILDER APPRENTICE Anion Gap, P 15 7 - 15 03/22/2021 MKTO 9:20 AM BODY BUILDER APPRENTICE BUN (Blood Urea 6 6 - 21 03/22/2021 MKTO Nitrogen), P mg/dL 9:20 AM BODY BUILDER APPRENTICE Creatinine 0.40 (L) 0.59 - 03/22/2021 MKTO 1.04 mg/dL 9:20 AM BODY BUILDER APPRENTICE eGFR-Black/Afri >90 >=60 03/22/2021 MKTO can Cambodian mL/min/BSA 9:20 AM BODY BUILDER APPRENTICE Comment: ----ADDITIONAL INFORMATION---- Estimated GFR calculated using the 2009 CKD_EPI creatinine equation. eGFR Non-Black/ >90 >=60 mL/min/BSA 03/22/2021 9:20 AM BODY BUILDER APPRENTICE MKTO Comment: ----ADDITIONAL INFORMATION---- Estimated GFR calculated using the 2009 CKD_EPI creatinine equation. Calcium, Total, P 10.1 (H) 8.6 - 10.0 mg/dL 03/22/2021 9:20 AM BODY BUILDER APPRENTICE MKTO Glucose, P 115 70 - 140 mg/dL 03/22/2021 9:20 AM BODY BUILDER APPRENTICE M KTO Protein, Total, P 6.2 (L) 6.3 - 7.9 g/dL 03/22/2021 9:20 A M BODY BUILDER APPRENTICE MKTO Albumin, P 5.2 (H) 3.5 - 5.0 g/dL 03/22/2021 9:20 AM BODY BUILDER APPRENTICE M KTO Aspartate Aminotransferase 52 (H) 8 - 43 U/L 03/22/2021 9 :20 AM BODY BUILDER APPRENTICE MKTO (AST), P Alkaline Phosphatase, P 59 35 - 104 U/L 03/22/2021 9: 20 AM BODY BUILDER APPRENTICE MKTO Alanine Aminotransferase 20 7 - 45 U/L 03/22/2021 9:2 0 AM BODY BUILDER APPRENTICE MK[facility] (ALT), P Bilirubin, Total, P 5.9 (H) <=1.2 mg/dL 03/22/2021 9:20 AM BODY BUILDER APPRENTICE MKTO Specimen Anatomical Collection Method Collection Time Receive d Time (Source) Location / / Volume Laterality Blood (Blood, 03/22/2021 8:38 AM 03/22/20 8:50 Venous) BODY BUILDER APPRENTICE AM BODY BUILDER APPRENTICE Darian Thoams M.D., J.D. LAB BLOOD ADD-ON Performing Organization Address City/[facility] Phon e Number [facility]- [address] [place] [phone] [place] [address] (ABNORMAL) CBC without Differential (03/22/2021 8:38 AM BODY BUILDER APPRENTICE) Patholo gist Method Time Signature Hemoglobin 7.2 (L) 11.6 - 03/22/2021 MKTO 15.0 g/dL 9:11 AM BODY BUILDER APPRENTICE Hematocrit 22.6 (L) 35.5 - 03/22/2021 MKTO 44.9 % 9:11 AM BODY BUILDER APPRENTICE Erythrocytes 2.39 (L) 3.92 - 03/22/2021 MKTO 5.13 9:11 AM BODY BUILDER APPRENTICE x10(12)/L MCV 94.6 78.2 - 03/22/2021 MKTO 97.9 fL 9:11 AM BODY BUILDER APPRENTICE RBC Distrib Width 21.6 (H) 12.2 - 03/22/2021 MKTO 16.1 % 9:11 AM BODY BUILDER APPRENTICE Platelet Count 98 (L) 157 - 371 03/22/2021 MKTO x10(9)/L 9:11 AM BODY BUILDER APPRENTICE Leukocytes 9.0 3.4 - 9.6 03/22/2021 MKTO x10(9)/L 9:11 AM BODY BUILDER APPRENTICE Specimen Anatomical Collection Method Collection Time Receive d Time (Source) Location / / Volume Laterality Blood (Blood, 03/22/2021 8:38 AM 03/22/20 8:50 Venous) BODY BUILDER APPRENTICE AM BODY BUILDER APPRENTICE Darian Thomas M.D., J.D. LAB BLOOD ADD-ON Performing Organization Address City/[facility]/ZIP Code Phon e Number [facility]- [address] [place] [phone] [place] [address] Phosphorus Inorganic (03/22/2021 8:33 AM BODY BUILDER APPRENTICE) P athologist Signature Phosphorus 2.7 2.5 - 4.5 03/22/2021 MKTO (Inorganic), P mg/dL 2:17 PM BODY BUILDER APPRENTICE Specimen Anatomical Collection Method Collection Time Receive d Time (Source) Location / / Volume Laterality Blood (Blood, 03/22/2021 8:33 AM 03/22/20 2:07 Venous) BODY BUILDER APPRENTICE PM BODY BUILDER APPRENTICE Darian Thomas M.D., J.D. LAB BLOOD ADD-ON Performing Organization Address City/[facility] Phon e Number [facility]- [address] [place] [phone] [place] [address] (ABNORMAL) Magnesium (03/22/2021 8:33 AM BODY BUILDER APPRENTICE) P athologist Signature Magnesium, P 1.6 (L) 1.7 - 2.3 03/22/2021 MKTO mg/dL 2:17 PM BODY BUILDER APPRENTICE Specimen Anatomical Collection Method Collection Time Receive d Time (Source) Location / / Volume Laterality Blood (Blood, 03/22/2021 8:33 AM 03/22/20 2:07 Venous) BODY BUILDER APPRENTICE PM BODY BUILDER APPRENTICE Darian Thomas M.D., J.D. LAB BLOOD ADD-ON Performing Organization Address City/[facility] Phon e Number [facility]- [address] [place] [phone] [place] [address] [facility] in [address] EEG ROUTINE (03/21/2021 4:43 PM BODY BUILDER APPRENTICE) Specimen (Source) Anatomical Location Collection Method / Collectio n Time Received Time / Laterality Volume Narrative MMODAL - 03/21/2021 5:13 PM BODY BUILDER APPRENTICE Clinical Interpretation: The short-term video EEG shows some mild diffuse nonspecific slowing of the background. ? ?No potentially epileptogenic activity was present during the awake or sleep recordings. Classification: SPECIAL STUDY - Short-te rm video EEG. Dysrhythmia grade 1 generalized. Sleep - no activation. EKG channel. Report: The short-term video EEG recordi during wakefulness contains 7 Hz alpha activity over the posterior hea d regions.. No abnormal activity occurred during photic stimulation. During the recording, the patient fell a sleep spontaneously. ??No abnormal activity occurred during sleep or at the time of arousal. The EKG channel was unremarkable. Jean Paul M.D. NEUROLOGY ORDERABLES Performing Organization Address City/State/ZIP Code Phon e Number MMODAL MMODAL NA CT Abdomen Pelvis without IV Contrast (03/21/2021 12:42 PM BODY BUILDER APPRENTICE) Anatomical Region Laterality Modality Abdomen, Pelvis, Abdominal RST LOS, Abdominal ARZ LOS, N/A Computed Tomography Abdominal FLA LOS Specimen (Source) Anatomical Collection Method Collection Time Re ceived Time Location / / Volume Laterality 03/21/2021 1:09 PM BODY BUILDER APPRENTICE Impressions 03/21/2021 1:19 PM BODY BUILDER APPRENTICE 1. Slight interval DECREASE in abdominal ascites, however attenuation values have slightly increased, and are indeter minate, raising the possibility that there is blood within this free peritone al fluid. Consider paracentesis 2. No CT evidence for retroperitoneal he morrhage. Narrative 03/21/2021 1:19 PM BODY BUILDER APPRENTICE EXAM: CT ABDOMEN PELVIS WITHOUT IV CONTRAST [...] retroperitoneal he morrhage. Darian Thomas M.D., J.D. IMTristan CT PROCEDURES CT Head without IV Contrast (03/21/2021 12:42 PM BODY BUILDER APPRENTICE) Anatomical Region Laterality Modality Head, Neuroradiology RST LOS, Neuroradiology [facility], N/A Computed Tomography Neuroradiology [facility] Specimen (Source) Anatomical Collection Method Collection Time Re ceived Time Location / / Volume Laterality 03/21/2021 1:08 PM BODY BUILDER APPRENTICE Impressions 03/21/2021 1:09 PM BODY BUILDER APPRENTICE No acute intracranial pathology Narrative 03/21/2021 1:09 PM BODY BUILDER APPRENTICE EXAM: CT HEAD WITHOUT IV CONTRAST COMPARISON: [...] PROCEDURES ECG 12 Lead (03/21/2021 10:06 AM BODY BUILDER APPRENTICE) P athologist Signature Ventricular Rate 92 BPM MUSE ECG/Min [place] Interval 148 ms MUSE QRSD Interval 82 ms MUSE QT Interval 342 ms MUSE QTC Interval 422 ms MUSE P Bement 0 degrees MUSE R Bement 58 degrees MUSE T Wave Bement 12 degrees MUSE Specimen Anatomical Collection Method Collection Time Receive d Time (Source) Location / / Volume Laterality 03/21/2021 10:06 03/21/2021 AM BODY BUILDER APPRENTICE 10:09 AM BODY BUILDER APPRENTICE Impressions MUSE - 03/21/2021 10:10 AM BODY BUILDER APPRENTICE Normal sinus rhythm Nonspecific T wave abnormality [...] (ABNORMAL) Comprehensive Metabolic Panel (03/21/2021 5:44 AM BODY BUILDER APPRENTICE) Analysis Performed At Patho logist Time Signature Potassium, P 3.8 3.6 - 5.2 03/21/2021 [facility] mmol/L 6:33 AM BODY BUILDER APPRENTICE Sodium, P 141 135 - 145 03/21/2021 [facility] mmol/L 6:33 AM BODY BUILDER APPRENTICE Chloride, P 108 (H) 98 - 107 03/21/2021 [facility] mmol/L 6:33 AM BODY BUILDER APPRENTICE Bicarbonate, P 19 (L) 22 - 29 03/21/2021 [facility] mmol/L 6:33 AM BODY BUILDER APPRENTICE Anion Gap, P 14 7 - 15 03/21/2021 [facility] 6:33 AM BODY BUILDER APPRENTICE BUN (Blood Urea 4 (L) 6 - 21 03/21/2021 [facility] Nitrogen), P mg/dL 6:33 AM BODY BUILDER APPRENTICE Creatinine 0.38 (L) 0.59 - 03/21/2021 [facility] 1.04 mg/dL 6:33 AM BODY BUILDER APPRENTICE eGFR-Black/Afri >90 >=60 03/21/2021 [facility] can Cambodian mL/min/BSA 6:33 AM BODY BUILDER APPRENTICE Comment: ----ADDITIONAL INFORMATION---- Estimated GFR calculated using the 2009 CKD_EPI creatinine equation. eGFR Non-Black/ >90 >=60 mL/min/BSA 03/21/2021 6:33 AM BODY BUILDER APPRENTICE [facility] Comment: ----ADDITIONAL INFORMATION---- Estimated GFR calculated using the 2009 CKD_EPI creatinine equation. Calcium, Total, P 10.3 (H) 8.6 - 10.0 mg/dL 03/21/2021 6:33 AM [facility] BODY BUILDER APPRENTICE Glucose, P 104 70 - 140 mg/dL 03/21/2021 6:33 AM [facility] BODY BUILDER APPRENTICE Protein, Total, P 6.2 (L) 6.3 - 7.9 g/dL 03/21/2021 6:33 A M [facility] BODY BUILDER APPRENTICE Albumin, P 5.2 (H) 3.5 - 5.0 g/dL 03/21/2021 6:33 AM [facility] BODY BUILDER APPRENTICE Aspartate Aminotransferase SEE COMMENT 8 - 43 U/L 03/21/2021 6:43 AM [facility] (AST), P BODY BUILDER APPRENTICE Comment: Specimen was hemolyzed. Alkaline Phosphatase, P 52 35 - 104 U/L 03/21/2021 6: 33 AM BODY BUILDER APPRENTICE [facility] Alanine Aminotransferase (ALT), 19 7 - 45 U/L 021 6:33 AM BODY BUILDER APPRENTICE [facility] P Bilirubin, Total, P 5.8 (H) <=1.2 mg/dL 03/21/2021 6:33 AM BODY BUILDER APPRENTICE [facility] Specimen Anatomical Collection Method Collection Time Receive d Time (Source) Location / / Volume Laterality Blood (Blood, 03/21/2021 5:44 AM 03/21/20 5:50 Venous) BODY BUILDER APPRENTICE AM BODY BUILDER APPRENTICE Darian Thomas M.D., J.D. LAB BLOOD ADD-ON Performing Organization Address City/State/ZIP Code Phon e Number [facility]- [address] [place] [phone] [place] [address] Lactate, B (03/21/2021 5:43 AM BODY BUILDER APPRENTICE) P athologist Signature Lactate, B 1.7 0.5 - 2.2 03/21/2021 [facility] mmol/L 5:56 AM BODY BUILDER APPRENTICE Specimen Anatomical Collection Method Collection Time Receive d Time (Source) Location / / Volume Laterality Blood 03/21/2021 5:43 AM 5:50 BODY BUILDER APPRENTICE AM BODY BUILDER APPRENTICE Alka Cordero P.A.-C., M.SSuma LAB BLOOD NON ADD-ON Performing Organization Address City/[facility] Code Phon e Number [facility]- [address] [place] [phone] [place] [address] (ABNORMAL) CBC without Differential (03/21/2021 5:43 AM BODY BUILDER APPRENTICE) Patholo gist Method Time Signature Hemoglobin 7.0 (L) 11.6 - 03/21/2021 [facility] 15.0 g/dL 6:09 AM BODY BUILDER APPRENTICE Hematocrit 21.2 (L) 35.5 - 03/21/2021 [facility] 44.9 % 6:09 AM BODY BUILDER APPRENTICE Erythrocytes 2.35 (L) 3.92 - 03/21/2021 [facility] 5.13 6:09 AM BODY BUILDER APPRENTICE x10(12)/L MCV 90.2 78.2 - 03/21/2021 [facility] 97.9 fL 6:09 AM BODY BUILDER APPRENTICE RBC Distrib Width 21.1 (H) 12.2 - 03/21/2021 [facility] 16.1 % 6:09 AM BODY BUILDER APPRENTICE Platelet Count 91 (L) 157 - 371 03/21/2021 [facility] x10(9)/L 6:09 AM BODY BUILDER APPRENTICE Leukocytes 7.8 3.4 - 9.6 03/21/2021 [facility] x10(9)/L 6:09 AM BODY BUILDER APPRENTICE Specimen Anatomical Collection Method Collection Time Receive d Time (Source) Location / / Volume Laterality Blood (Blood, 03/21/2021 5:43 AM 03/21/20 5:50 Venous) BODY BUILDER APPRENTICE AM BODY BUILDER APPRENTICE Darian Thomas M.D., J.D. LAB BLOOD ADD-ON Performing Organization Address City/[facility]/ZIP [facility] Phon e Number [facility]- [address] [place] [phone] [place] [address] (ABNORMAL) Prothrombin Time (PT) (03/21/2021 5:43 AM BODY BUILDER APPRENTICE) Patholo gist Method Time Signature Prothrombin 29.0 (H) 9.4 - 12.5 03/21/2021 [facility] Time, P sec 6:02 AM BODY BUILDER APPRENTICE INR 2.6 0.9 - 1.1 03/21/2021 [facility] 6:02 AM BODY BUILDER APPRENTICE Comment: ----ADDITIONAL INFORMATION---- Standard intensity warfarin therapeutic range: 2.0 to 3.0 ?? High intensity warfarin therapeutic rang e: 2.5 to 3.5 Specimen Anatomical Collection Method Collection Time Receive d Time (Source) Location / / Volume Laterality Blood (Blood, 03/21/2021 5:43 AM 03/21/20 5:50 Venous) BODY BUILDER APPRENTICE AM BODY BUILDER APPRENTICE Keerthi Guzman M.D. LAB BLOOD ADD-ON Performing Organization Address City/[facility] Phon e Number [facility]- [address] [place] [phone] [place] [address] System in [address] (ABNORMAL) Lactate, B (03/20/2021 10:32 PM BODY BUILDER APPRENTICE) P athologist Signature Lactate, B 4.1 (H) 0.5 - 2.2 03/20/2021 [facility] mmol/L 10:44 PM BODY BUILDER APPRENTICE Specimen Anatomical Collection Method Collection Time Receive d Time (Source) Location / / Volume Laterality Blood 03/20/2021 10:32 03/20/2021 PM BODY BUILDER APPRENTICE 10:39 PM BODY BUILDER APPRENTICE Alka Cordero P.A.-C., M.S. LAB BLOOD NON ADD-ON Performing Organization Address City/State/ZIP Code Phon e Number [facility]- [address] [place] [address] [place] [address] System in [place] [address] [facility] (ABNORMAL) Comprehensive Metabolic Panel (03/20/2021 10:32 PM BODY BUILDER APPRENTICE) Analysis Performed At Patho logist Time Signature Potassium, P 3.6 3.6 - 5.2 03/20/2021 [facility] mmol/L 11:16 PM BODY BUILDER APPRENTICE Sodium, P 141 135 - 145 03/20/2021 [facility] mmol/L 11:16 PM BODY BUILDER APPRENTICE Chloride, P 107 98 - 107 03/20/2021 [facility] mmol/L 11:16 PM BODY BUILDER APPRENTICE Bicarbonate, P 17 (L) 22 - 29 03/20/2021 [facility] mmol/L 11:16 PM BODY BUILDER APPRENTICE Anion Gap, P 17 (H) 7 - 15 03/20/2021 [facility] 11:16 PM BODY BUILDER APPRENTICE BUN (Blood Urea 4 (L) 6 - 21 03/20/2021 [facility] Nitrogen), P mg/dL 11:16 PM BODY BUILDER APPRENTICE Creatinine 0.43 (L) 0.59 - 03/20/2021 [facility] 1.04 mg/dL 11:16 PM BODY BUILDER APPRENTICE eGFR-Black/Afri >90 >=60 03/20/2021 [facility] can Cambodian mL/min/BSA 11:16 PM BODY BUILDER APPRENTICE Comment: ----ADDITIONAL INFORMATION---- Estimated GFR calculated using the 2009 CKD_EPI creatinine equation. eGFR Non-Black/ >90 >=60 mL/min/BSA 03/20/2021 11:16 PM BODY BUILDER APPRENTICE [facility] Comment: ----ADDITIONAL INFORMATION---- Estimated GFR calculated using the 2009 CKD_EPI creatinine equation. Calcium, Total, P 10.6 (H) 8.6 - 10.0 mg/dL 03/20/2021 11:1 6 PM [facility] BODY BUILDER APPRENTICE Glucose, P 117 70 - 140 mg/dL 03/20/2021 11:16 PM [facility] BODY BUILDER APPRENTICE Protein, Total, P 6.8 6.3 - 7.9 g/dL 03/20/2021 11:16 PM [facility] BODY BUILDER APPRENTICE Albumin, P 5.6 (H) 3.5 - 5.0 g/dL 03/20/2021 11:16 PM [facility] BODY BUILDER APPRENTICE Aspartate Aminotransferase 56 (H) 8 - 43 U/L 03/20/2021 1 1:16 PM [facility] (AST), P BODY BUILDER APPRENTICE Alkaline Phosphatase, P 59 35 - 104 U/L 03/20/2021 11 :16 PM [facility] BODY BUILDER APPRENTICE Alanine Aminotransferase 21 7 - 45 U/L 03/20/2021 11: 16 PM [facility] (ALT), P BODY BUILDER APPRENTICE Bilirubin, Total, P 6.0 (H) <=1.2 mg/dL 03/20/2021 11:16 P M [facility] BODY BUILDER APPRENTICE Specimen Anatomical Collection Method Collection Time Receive d Time (Source) Location / / Volume Laterality Blood (Blood, 03/20/2021 10:32 03/20/2021 Venous) PM BODY BUILDER APPRENTICE 10:39 PM BODY BUILDER APPRENTICE Alka Cordero P.A.-C., M.S. LAB BLOOD ADD-ON Performing Organization Address [facility] Phon e Number [address] [address] [place] [address] System [address] (ABNORMAL) Ammonia (03/20/2021 10:32 PM BODY BUILDER APPRENTICE) P athologist Signature Ammonia, P 63 (H) <=51 03/20/2021 [facility] mcmol/L 11:02 PM BODY BUILDER APPRENTICE Specimen Anatomical Collection Method Collection Time Receive d Time (Source) Location / / Volume Laterality Blood (Blood, 03/20/2021 10:32 03/20/2021 Venous) PM BODY BUILDER APPRENTICE 10:38 PM BODY BUILDER APPRENTICE Alka Cordero P.A.-C., M.S. LAB BLOOD NON ADD-ON Performing Organization Address City/[facility] Phon e Number [address] [address] [place] [address] CK (Creatine Kinase) (03/20/2021 10:32 PM BODY BUILDER APPRENTICE) P athologist Signature Creatine 40 26 - 192 03/20/2021 [facility] Kinase, P U/L 11:16 PM BODY BUILDER APPRENTICE Specimen Anatomical Collection Method Collection Time Receive d Time (Source) Location / / Volume Laterality Blood (Blood, 03/20/2021 10:32 03/20/2021 Venous) PM BODY BUILDER APPRENTICE 10:39 PM BODY BUILDER APPRENTICE Alka Cordero P.A.-C., M.S. LAB BLOOD ADD-ON Performing Organization Address City/State/ZIP Code Phon e Number [facility]- [address] [place] [address] [place] [address] System in [place] [address] [place] [address] (ABNORMAL) CBC with Differential, Blood (03/20/2021 10:32 PM BODY BUILDER APPRENTICE) [facility] Method Time Signature Hemoglobin 7.5 (L) 11.6 - 03/20/2021 [facility] 15.0 g/dL 10:43 PM BODY BUILDER APPRENTICE Hematocrit 22.5 (L) 35.5 - 03/20/2021 [facility] 44.9 % 10:43 PM BODY BUILDER APPRENTICE Erythrocytes 2.44 (L) 3.92 - 03/20/2021 [facility] 5.13 10:43 PM BODY BUILDER APPRENTICE x10(12)/L MCV 92.2 78.2 - 03/20/2021 [facility] 97.9 fL 10:43 PM BODY BUILDER APPRENTICE RBC Distrib Width 20.9 (H) 12.2 - 03/20/2021 [facility] 16.1 % 10:43 PM BODY BUILDER APPRENTICE Platelet Count 84 (L) 157 - 371 03/20/2021 [facility] x10(9)/L 10:43 PM BODY BUILDER APPRENTICE Leukocytes 8.4 3.4 - 9.6 03/20/2021 [facility] x10(9)/L 10:43 PM BODY BUILDER APPRENTICE Neutrophils 6.38 1.56 - 03/20/2021 [facility] 6.45 10:43 PM BODY BUILDER APPRENTICE x10(9)/L Lymphocytes 1.10 0.95 - 03/20/2021 [facility] 3.07 10:43 PM BODY BUILDER APPRENTICE x10(9)/L Monocytes 0.75 0.26 - 03/20/2021 [facility] 0.81 10:43 PM BODY BUILDER APPRENTICE x10(9)/L Eosinophils 0.10 0.03 - 03/20/2021 [facility] 0.48 10:43 PM BODY BUILDER APPRENTICE x10(9)/L Basophils <0.03 0.01 - 03/20/2021 [facility] 0.08 10:43 PM BODY BUILDER APPRENTICE x10(9)/L Specimen Anatomical Collection Method Collection Time Receive d Time (Source) Location / / Volume Laterality Blood (Blood, 03/20/2021 10:32 03/20/2021 Venous) PM BODY BUILDER APPRENTICE 10:39 PM BODY BUILDER APPRENTICE Alka Cordero P.A.-C., M.S. LAB BLOOD ADD-ON Performing Organization Address City/[facility]/ZIP Code Phon e Number [facility]- [address] [place] [phone] [place] [address] [address] in [address] Glucose, POCT (03/20/2021 9:03 PM BODY BUILDER APPRENTICE) athologist Signature Glucose, POCT, 131 70 - 140 03/20/2021 [facility] B mg/dL 9:03 PM BODY BUILDER APPRENTICE Specimen Anatomical Collection Method Collection Time Receive d Time (Source) Location / / Volume Laterality Blood 03/20/2021 9:03 PM 1 9:11 BODY BUILDER APPRENTICE PM BODY BUILDER APPRENTICE Generic Rals LAB POCT ORDERABLES-MANUAL Performing Organization Address City/[facility]/ZIP [facility] Phon e Number [facility]- [address] [place] [phone] [place] [address] [address] Phosphorus Inorganic (03/20/2021 7:40 AM BODY BUILDER APPRENTICE) athologist Signature Phosphorus 3.1 2.5 - 4.5 03/20/2021 [facility] (Inorganic), P mg/dL 8:31 AM BODY BUILDER APPRENTICE Specimen Anatomical Collection Method Collection Time Receive d Time (Source) Location / / Volume Laterality Blood 03/20/2021 7:40 AM 1 7:46 BODY BUILDER APPRENTICE AM BODY BUILDER APPRENTICE Keerthi Guzman M.D. LAB BLOOD ADD-ON Performing Organization Address City/[facility]/ZIP Code Phon e Number [address] [address] [place] [address] [address] in [address] (ABNORMAL) Blood Gas with Coox, Venous (03/20/2021 7:40 AM BODY BUILDER APPRENTICE) Patholo gist Method Time Signature Venous pO2 56 Not applicable 03/20/2021 [facility] mm Hg 7:59 AM BODY BUILDER APPRENTICE Venous pCO2 30 (L) 41 - 51 mm Hg 03/20/2021 [facility] 7:59 AM BODY BUILDER APPRENTICE Venous pH 7.48 (H) 7.32 - 7.43 pH 03/20/2021 [facility] 7:59 AM BODY BUILDER APPRENTICE Venous Base -1 Not applicable 03/20/2021 [facility] Excess mmol/L 7:59 AM BODY BUILDER APPRENTICE HCO3 22 Not applicable 03/20/2021 [facility] mmol/L 7:59 AM BODY BUILDER APPRENTICE Hemoglobin, B 7.8 (L) 11.6 - 15.0 03/20/2021 [facility] g/dL 7:59 AM BODY BUILDER APPRENTICE O2Hb 88.2 Not applicable 03/20/2021 [facility] % 7:59 AM BODY BUILDER APPRENTICE COHb 1.8 <3.0 % 03/20/2021 [facility] 7:59 AM BODY BUILDER APPRENTICE MetHb 0.6 <1.5 % 03/20/2021 [facility] 7:59 AM BODY BUILDER APPRENTICE CtO2 9.7 Not Applicable 03/20/2021 [facility] vol % 7:59 AM BODY BUILDER APPRENTICE Specimen Anatomical Collection Method Collection Time Receive d Time (Source) Location / / Volume Laterality Blood (Blood, 03/20/2021 7:40 AM 03/20/20 7:46 Venous) BODY BUILDER APPRENTICE AM BODY BUILDER APPRENTICE Darian Thomas M.D., J.D. LAB BLOOD NON ADD-ON Performing Organization Address City/[facility]/ZIP Code Phon e Number [facility]- [address] [place] [phone] [place] [address] [place] [address] [address] Magnesium (03/20/2021 7:40 AM BODY BUILDER APPRENTICE) P athologist Signature Magnesium, P 2.3 1.7 - 2.3 03/20/2021 [facility] mg/dL 8:31 AM BODY BUILDER APPRENTICE Specimen Anatomical Collection Method Collection Time Receive d Time (Source) Location / / Volume Laterality Blood 03/20/2021 7:40 AM 7:46 BODY BUILDER APPRENTICE AM BODY BUILDER APPRENTICE Keerthi Guzman M.D. LAB BLOOD ADD-ON Performing Organization Address City/State/ZIP Code Phon e Number [facility]- [address] [place] [address] [place] [address] [address] Calcium, Ionized (03/20/2021 7:40 AM BODY BUILDER APPRENTICE) P athologist Signature Calcium, 5.07 4.65 - 5.30 03/20/2021 [facility] Ionized, B mg/dL 7:59 AM BODY BUILDER APPRENTICE Specimen Anatomical Collection Method Collection Time Receive d Time (Source) Location / / Volume Laterality Blood 03/20/2021 7:40 AM 7:46 BODY BUILDER APPRENTICE AM BODY BUILDER APPRENTICE Keerthi Guzman M.D. LAB BLOOD NON ADD-ON Performing Organization Address City/[facility]/ZIP Code Phon e Number [facility]- [address] [place] [address] [facility] [place] [address] [address] in [address] (ABNORMAL) pH (03/20/2021 7:40 AM BODY BUILDER APPRENTICE) athologist Signature pH 7.48 (H) 7.35 - 7.45 03/20/2021 [facility] pH 7:59 AM BODY BUILDER APPRENTICE Specimen Anatomical Collection Method Collection Time Receive d Time (Source) Location / / Volume Laterality Blood 03/20/2021 7:40 AM 1 7:46 BODY BUILDER APPRENTICE AM BODY BUILDER APPRENTICE Keerthi Guzman M.D. LAB HISTORICAL ORDERS Performing Organization Address City/State/ZIP Code Phon e Number [facility]- [address] [place] [address] [facility] [place] [address] Lactate, B (03/20/2021 7:40 AM BODY BUILDER APPRENTICE) P athologist Signature Lactate, B 1.0 0.5 - 2.2 03/20/2021 [facility] mmol/L 7:59 AM BODY BUILDER APPRENTICE Specimen Anatomical Collection Method Collection Time Receive d Time (Source) Location / / Volume Laterality Blood 03/20/2021 7:40 AM 1 7:46 BODY BUILDER APPRENTICE AM BODY BUILDER APPRENTICE Keerthi Guzman M.D. LAB BLOOD NON ADD-ON Performing Organization Address [facility] Phon e Number [facility]- [address] [place] [address] [place] [address] [address] in [address] (ABNORMAL) CBC without Differential (03/20/2021 7:40 AM BODY BUILDER APPRENTICE) Patholo gist Method Time Signature Hemoglobin 7.6 (L) 11.6 - 03/20/2021 [facility] 15.0 g/dL 8:13 AM BODY BUILDER APPRENTICE Hematocrit 23.4 (L) 35.5 - 03/20/2021 [facility] 44.9 % 8:13 AM BODY BUILDER APPRENTICE Erythrocytes 2.54 (L) 3.92 - 03/20/2021 [facility] 5.13 8:13 AM BODY BUILDER APPRENTICE x10(12)/L MCV 92.1 78.2 - 03/20/2021 [facility] 97.9 fL 8:13 AM BODY BUILDER APPRENTICE RBC Distrib Width 20.5 (H) 12.2 - 03/20/2021 [facility] 16.1 % 8:13 AM BODY BUILDER APPRENTICE Platelet Count 94 (L) 157 - 371 03/20/2021 [facility] x10(9)/L 8:13 AM BODY BUILDER APPRENTICE Leukocytes 5.9 3.4 - 9.6 03/20/2021 [facility] x10(9)/L 8:13 AM BODY BUILDER APPRENTICE Specimen Anatomical Collection Method Collection Time Receive d Time (Source) Location / / Volume Laterality Blood (Blood, 03/20/2021 7:40 AM 03/20/20 21 7:46 Venous) BODY BUILDER APPRENTICE AM BODY BUILDER APPRENTICE Keerthi Guzman M.D. LAB BLOOD ADD-ON Performing Organization Address [facility] Code Phon e Number [facility]- [address] [place] [phone] [place] [address] (ABNORMAL) Comprehensive Metabolic Panel (03/20/2021 7:40 AM BODY BUILDER APPRENTICE) Analysis Performed At Patho logist Time Signature Potassium, P 3.3 (L) 3.6 - 5.2 03/20/2021 [facility] mmol/L 8:31 AM BODY BUILDER APPRENTICE Sodium, P 142 135 - 145 03/20/2021 [facility] mmol/L 8:31 AM BODY BUILDER APPRENTICE Chloride, P 108 (H) 98 - 107 03/20/2021 [facility] mmol/L 8:31 AM BODY BUILDER APPRENTICE Bicarbonate, P 20 (L) 22 - 29 03/20/2021 [facility] mmol/L 8:31 AM BODY BUILDER APPRENTICE Anion Gap, P 14 7 - 15 03/20/2021 [facility] 8:31 AM BODY BUILDER APPRENTICE BUN (Blood Urea 4 (L) 6 - 21 03/20/2021 [facility] Nitrogen), P mg/dL 8:31 AM BODY BUILDER APPRENTICE Creatinine 0.35 (L) 0.59 - 03/20/2021 [facility] 1.04 mg/dL 8:31 AM BODY BUILDER APPRENTICE eGFR-Black/Afri >90 >=60 03/20/2021 [facility] can Cambodian mL/min/BSA 8:32 AM BODY BUILDER APPRENTICE Comment: ----ADDITIONAL INFORMATION---- Estimated GFR calculated using the 2009 CKD_EPI creatinine equation. eGFR Non-Black/ >90 >=60 mL/min/BSA 03/20/2021 8:32 AM BODY BUILDER APPRENTICE [facility] Comment: ----ADDITIONAL INFORMATION---- Estimated GFR calculated using the 2009 CKD_EPI creatinine equation. Calcium, Total, P 10.2 (H) 8.6 - 10.0 mg/dL 03/20/2021 8:31 AM BODY BUILDER APPRENTICE [facility] Glucose, P 107 70 - 140 mg/dL 03/20/2021 8:31 AM BODY BUILDER APPRENTICE M [facility] Protein, Total, P 6.3 6.3 - 7.9 g/dL 03/20/2021 8:31 A M BODY BUILDER APPRENTICE [facility] Albumin, P 5.3 (H) 3.5 - 5.0 g/dL 03/20/2021 8:31 AM BODY BUILDER APPRENTICE M [facility] Aspartate Aminotransferase 38 8 - 43 U/L 03/20/2021 8 :31 AM BODY BUILDER APPRENTICE [facility] (AST), P Alkaline Phosphatase, P 50 35 - 104 U/L 03/20/2021 8: 31 AM BODY BUILDER APPRENTICE [facility] Alanine Aminotransferase 11 7 - 45 U/L 03/20/2021 8:3 1 AM BODY BUILDER APPRENTICE [facility] (ALT), P Bilirubin, Total, P 6.0 (H) <=1.2 mg/dL 03/20/2021 8:31 AM BODY BUILDER APPRENTICE [facility] Specimen Anatomical Collection Method Collection Time Receive d Time (Source) Location / / Volume Laterality Blood (Blood, 03/20/2021 7:40 AM 03/20/20 7:46 Venous) BODY BUILDER APPRENTICE AM BODY BUILDER APPRENTICE Keerthi Guzman M.D. LAB BLOOD ADD-ON Performing Organization Address City/[facility]/ZIP Code Phon e Number [facility]- [address] [place] [phone] [place] [address] System in [place] [address] [place] [address] (ABNORMAL) Prothrombin Time (PT) (03/20/2021 7:40 AM BODY BUILDER APPRENTICE) [facility] Method Time Signature Prothrombin 27.0 (H) 9.4 - 12.5 03/20/2021 MKTO Time, P sec 8:13 AM BODY BUILDER APPRENTICE INR 2.4 0.9 - 1.1 03/20/2021 MKTO 8:13 AM BODY BUILDER APPRENTICE Comment: ----ADDITIONAL INFORMATION---- Standard intensity warfarin therapeutic range: 2.0 to 3.0 ?? High intensity warfarin therapeutic rang e: 2.5 to 3.5 Specimen Anatomical Collection Method Collection Time Receive d Time (Source) Location / / Volume Laterality Blood (Blood, 03/20/2021 7:40 AM 03/20/20 7:46 Venous) BODY BUILDER APPRENTICE AM BODY BUILDER APPRENTICE Keerthi Guzman M.D. LAB BLOOD ADD-ON Performing Organization Address City/State/[facility] Code Phon e Number [facility]- [address] [place] [phone] [place] [address] System in [place] [address] [place] [address] Transfuse Fresh Frozen Plasma :INR >2: Invasive proc scheduled; 180 mL/hr (03/19/2021 6:37 PM BODY BUILDER APPRENTICE) Keerthi Guzman M.D. BLOOD TRANSFUSION ORDERABLES Transfuse Fresh Frozen Plasma :INR >2: Invasive proc scheduled; 180 mL/hr, 1 Units (03/19/2021 6:37 PM BODY BUILDER APPRENTICE) Keerthi Guzman M.D. BLOOD TRANSFUSION ORDERABLES Transfuse Red Blood Cells : (03/19/2021 3:21 PM BODY BUILDER APPRENTICE) Darian Thomas M.D., J.D. BLOOD TRANSFUSION ORDERAB LES Transfuse Red Blood Cells : , 1 Units (03/19/2021 3:21 PM BODY BUILDER APPRENTICE) Darian Thomas M.D., J.D. BLOOD TRANSFUSION ORDERAB LES (ABNORMAL) 25-Hydroxyvitamin D2 and D3 (03/19/2021 3:04 PM BODY BUILDER APPRENTICE) athologist Signature 25-Hydroxy D2 <4.0 ng/mL 03/24/2021 SDSC 4:43 PM BODY BUILDER APPRENTICE 25-Hydroxy D3 3.2 ng/mL 03/24/2021 SDSC 4:43 PM BODY BUILDER APPRENTICE 25-Hydroxy D <6.0 (L) ng/mL 03/24/2021 SDSC Total 4:43 PM BODY BUILDER APPRENTICE Comment: Interpretation: <10 ng/mL (severe defici ency) ----REFERENCE VALUE---- 25-HYDROXY D TOTAL (D2+D3) Optimum level s in the healthy population are 20-50, patients with bone disease may benefit from higher levels within this r vinh. ----ADDITIONAL INFORMATION---- This test was developed and its performa nce characteristics determined by [facility] in a manner consistent with CLIA requirements. This test has not been cleared or approved by the [place] and Drug Administration. Specimen Anatomical Collection Method Collection Time Receive d Time (Source) Location / / Volume Laterality Blood (Blood, 03/19/2021 3:04 PM 03/20/20 7:18 Venous) BODY BUILDER APPRENTICE AM BODY BUILDER APPRENTICE Keerthi Guzman M.D. LAB BLOOD ADD-ON Performing Organization Address City/State/ZIP Code Phon e Number [facility] [place] [address] [place], [place] [address] [facility] [place] [address] Laboratory Medicine and Pathology [address] [place] Parathyroid Hormone (PTH) (03/19/2021 3:04 PM BODY BUILDER APPRENTICE) athologist Signature Parathyroid 44 15 - 65 03/19/2021 [facility] Hormone (PTH), S pg/mL 4:17 PM BODY BUILDER APPRENTICE Comment: Biotin has been identified by the [facility] as a potential interfering substance. ??Higher concentr ations of biotin may be found in multivitamins, hair/nail supple ments, and workout supplements. ??If the result does not ma [facility] clinical observations, repeat testing after patient refrains fr om the use of supplements for at least 12 hours. Specimen Anatomical Collection Method Collection Time Receive d Time (Source) Location / / Volume Laterality Blood (Blood, 03/19/2021 3:04 PM 03/19/20 3:09 Venous) BODY BUILDER APPRENTICE PM BODY BUILDER APPRENTICE Keerthi Guzman M.D. LAB BLOOD ADD-ON Performing Organization Address City/[facility]/ZIP Code Phon e Number [address] [address] [place] [address] (ABNORMAL) pH (03/19/2021 3:04 PM BODY BUILDER APPRENTICE) P athologist Signature pH 7.51 (H) 7.35 - 7.45 03/19/2021 [facility] pH 3:13 PM BODY BUILDER APPRENTICE Specimen Anatomical Collection Method Collection Time Receive d Time (Source) Location / / Volume Laterality Blood 03/19/2021 3:04 PM 1 3:09 BODY BUILDER APPRENTICE PM BODY BUILDER APPRENTICE Darian Thomas M.D., J.D. LAB HISTORICAL ORDERS Performing Organization Address City/[facility]/ZIP Code Phon e Number [facility]- [address] [place] [phone] [place] [address] Calcium, Ionized (03/19/2021 3:04 PM BODY BUILDER APPRENTICE) P athologist Signature Calcium, 4.88 4.65 - 5.30 03/19/2021 [facility] Ionized, B mg/dL 3:13 PM BODY BUILDER APPRENTICE Specimen Anatomical Collection Method Collection Time Receive d Time (Source) Location / / Volume Laterality Blood 03/19/2021 3:04 PM 1 3:09 BODY BUILDER APPRENTICE PM BODY BUILDER APPRENTICE Darian Thomas M.D., J.D. LAB BLOOD NON ADD-ON Performing Organization Address City/[facility]/ZIP Code Phon e Number [facility]- [address] [place] [phone] [place] [address] (ABNORMAL) Potassium (03/19/2021 3:04 PM BODY BUILDER APPRENTICE) P athologist Signature Potassium, P 3.5 (L) 3.6 - 5.2 03/19/2021 [facility] mmol/L 3:36 PM BODY BUILDER APPRENTICE Specimen Anatomical Collection Method Collection Time Receive d Time (Source) Location / / Volume Laterality Blood (Blood, 03/19/2021 3:04 PM 03/19/20 3:09 Venous) BODY BUILDER APPRENTICE PM BODY BUILDER APPRENTICE Keerthi Guzman M.D. LAB BLOOD ADD-ON Performing Organization Address City/State/ZIP Code Phon e Number [facility]- [address] [place] [phone] [place] [address] (TTE) 2D ECHO DOPPLER COLOR AND CONTRAST (03/19/2021 12:39 PM BODY BUILDER APPRENTICE) Patholo gist Method Time Signature Ejection Fraction [...] / / Volume Laterality 03/19/2021 10:58 AM BODY BUILDER APPRENTICE Impressions 03/19/2021 12:59 PM BODY BUILDER APPRENTICE Echo performed at the patient's bedside. ??Hemoglobin [...] For the complete report, see the Order-L evZiptr Documents. Narrative 03/19/2021 12:59 PM BODY BUILDER APPRENTICE For the complete report, see the Order-L evel Documents. Final Impressions 1. Positive for atrial [...] 2020 For the complete report, see the Order-L evel Documents. Final Impressions 1. Positive for atrial [...] ECHO PROCEDURES (ABNORMAL) Ammonia (03/19/2021 7:39 AM BODY BUILDER APPRENTICE) athologist Signature Ammonia, P 65 (H) <=51 03/19/2021 [facility] mcmol/L 8:26 AM BODY BUILDER APPRENTICE Specimen Anatomical Collection Method Collection Time Receive d Time (Source) Location / / Volume Laterality Blood (Blood, 03/19/2021 7:39 AM 03/19/20 8:06 Venous) BODY BUILDER APPRENTICE AM BODY BUILDER APPRENTICE Darian Thomas M.D., J.D. LAB BLOOD NON ADD-ON Performing Organization Address City/[facility]/ZIP Code Phon e Number [address] [address] [place] [address] (ABNORMAL) Phosphorus Inorganic (03/19/2021 7:39 AM BODY BUILDER APPRENTICE) athologist Signature Phosphorus 1.8 (L) 2.5 - 4.5 03/19/2021 [facility] (Inorganic), P mg/dL 8:32 AM BODY BUILDER APPRENTICE Specimen Anatomical Collection Method Collection Time Receive d Time (Source) Location / / Volume Laterality Blood (Blood, 03/19/2021 7:39 AM 03/19/20 7:57 Venous) BODY BUILDER APPRENTICE AM BODY BUILDER APPRENTICE Darian Thomas M.D., J.D. LAB BLOOD ADD-ON Performing Organization Address City/State/ZIP Code Phon e Number [address] [place] [address] [place] [address] (ABNORMAL) Magnesium (03/19/2021 7:39 AM BODY BUILDER APPRENTICE) P athologist Signature Magnesium, P 1.5 (L) 1.7 - 2.3 03/19/2021 [facility] mg/dL 8:32 AM BODY BUILDER APPRENTICE Specimen Anatomical Collection Method Collection Time Receive d Time (Source) Location / / Volume Laterality Blood (Blood, 03/19/2021 7:39 AM 03/19/20 7:57 Venous) BODY BUILDER APPRENTICE AM BODY BUILDER APPRENTICE Darian Thomas M.D., J.D. LAB BLOOD ADD-ON Performing Organization Address City/State/ZIP Code Phon e Number [facility]- [address] [place] [phone] [place] [address] (ABNORMAL) Comprehensive Metabolic Panel (03/19/2021 7:39 AM BODY BUILDER APPRENTICE) Analysis Performed At Patho logist Time Signature Potassium, P 3.1 (L) 3.6 - 5.2 03/19/2021 [facility] mmol/L 8:32 AM BODY BUILDER APPRENTICE Sodium, P 140 135 - 145 03/19/2021 [facility] mmol/L 8:32 AM BODY BUILDER APPRENTICE Chloride, P 102 98 - 107 03/19/2021 [facility] mmol/L 8:32 AM BODY BUILDER APPRENTICE Bicarbonate, P 19 (L) 22 - 29 03/19/2021 [facility] mmol/L 8:32 AM BODY BUILDER APPRENTICE Anion Gap, P 19 (H) 7 - 15 03/19/2021 [facility] 8:32 AM BODY BUILDER APPRENTICE BUN (Blood Urea 6 6 - 21 03/19/2021 [facility] Nitrogen), P mg/dL 8:32 AM BODY BUILDER APPRENTICE Creatinine 0.33 (L) 0.59 - 03/19/2021 [facility] 1.04 mg/dL 8:32 AM BODY BUILDER APPRENTICE eGFR-Black/Afri >90 >=60 03/19/2021 [facility] can Cambodian mL/min/BSA 8:32 AM BODY BUILDER APPRENTICE Comment: ----ADDITIONAL INFORMATION---- Estimated GFR calculated using the 2009 CKD_EPI creatinine equation. eGFR Non-Black/ >90 >=60 mL/min/BSA 03/19/2021 8:32 AM BODY BUILDER APPRENTICE MK[facility] Comment: ----ADDITIONAL INFORMATION---- Estimated GFR calculated using the 2009 CKD_EPI creatinine equation. Calcium, Total, P 10.6 (H) 8.6 - 10.0 mg/dL 03/19/2021 8:32 AM BODY BUILDER APPRENTICE [facility] Glucose, P 116 70 - 140 mg/dL 03/19/2021 8:32 AM BODY BUILDER APPRENTICE M KTO Protein, Total, P 6.9 6.3 - 7.9 g/dL 03/19/2021 8:32 A M BODY BUILDER APPRENTICE [facility] Albumin, P 6.7 (H) 3.5 - 5.0 g/dL 03/19/2021 9:07 AM BODY BUILDER APPRENTICE M KTO Aspartate Aminotransferase 33 8 - 43 U/L 03/19/2021 8 :32 AM BODY BUILDER APPRENTICE [facility] (AST), P Alkaline Phosphatase, P 43 35 - 104 U/L 03/19/2021 8: 32 AM BODY BUILDER APPRENTICE [facility] Alanine Aminotransferase 10 7 - 45 U/L 03/19/2021 8:3 2 AM BODY BUILDER APPRENTICE [facility] (ALT), P Bilirubin, Total, P 6.6 (H) <=1.2 mg/dL 03/19/2021 8:32 AM BODY BUILDER APPRENTICE MKTO Specimen Anatomical Collection Method Collection Time Receive d Time (Source) Location / / Volume Laterality Blood (Blood, 03/19/2021 7:39 AM 03/19/20 7:57 Venous) BODY BUILDER APPRENTICE AM BODY BUILDER APPRENTICE Darian Thomas M.D., J.D. LAB BLOOD ADD-ON Performing Organization Address City/State/ZIP Code Phon e Number [facility]- [address] [place] [phone] [place] [address] [address] (ABNORMAL) Prothrombin Time (PT) (03/19/2021 7:39 AM BODY BUILDER APPRENTICE) [facility] Method Time Signature Prothrombin 28.4 (H) 9.4 - 12.5 03/19/2021 MK[facility] Time, P sec 8:10 AM BODY BUILDER APPRENTICE INR 2.5 0.9 - 1.1 03/19/2021 [facility] 8:10 AM BODY BUILDER APPRENTICE Comment: ----ADDITIONAL INFORMATION---- Standard intensity warfarin therapeutic range: 2.0 to 3.0 ?? High intensity warfarin therapeutic rang e: 2.5 to 3.5 Specimen Anatomical Collection Method Collection Time Receive d Time (Source) Location / / Volume Laterality Blood (Blood, 03/19/2021 7:39 AM 03/19/20 7:57 Venous) BODY BUILDER APPRENTICE AM BODY BUILDER APPRENTICE Darian Thomas M.D., J.D. LAB BLOOD ADD-ON Performing Organization Address City/State/ZIP Code Phon e Number [facility]- [address] [place] [phone] [place] [address] (ABNORMAL) CBC with Differential, Blood (03/19/2021 7:39 AM BODY BUILDER APPRENTICE) [facility] Method Time Signature Hemoglobin 6.8 (L) 11.6 - 03/19/2021 [facility] 15.0 g/dL 8:05 AM BODY BUILDER APPRENTICE Hematocrit 20.4 (L) 35.5 - 03/19/2021 [facility] 44.9 % 8:05 AM BODY BUILDER APPRENTICE Erythrocytes 2.25 (L) 3.92 - 03/19/2021 [facility] 5.13 8:05 AM BODY BUILDER APPRENTICE x10(12)/L MCV 90.7 78.2 - 03/19/2021 [facility] 97.9 fL 8:05 AM BODY BUILDER APPRENTICE RBC Distrib Width 20.7 (H) 12.2 - 03/19/2021 [facility] 16.1 % 8:05 AM BODY BUILDER APPRENTICE Platelet Count 92 (L) 157 - 371 03/19/2021 [facility] x10(9)/L 8:05 AM BODY BUILDER APPRENTICE Leukocytes 5.6 3.4 - 9.6 03/19/2021 [facility] x10(9)/L 8:05 AM BODY BUILDER APPRENTICE Neutrophils 3.54 1.56 - 03/19/2021 [facility] 6.45 8:05 AM BODY BUILDER APPRENTICE x10(9)/L Lymphocytes 1.31 0.95 - 03/19/2021 [facility] 3.07 8:05 AM BODY BUILDER APPRENTICE x10(9)/L Monocytes 0.64 0.26 - 03/19/2021 [facility] 0.81 8:05 AM BODY BUILDER APPRENTICE x10(9)/L Eosinophils 0.07 0.03 - 03/19/2021 [facility] 0.48 8:05 AM BODY BUILDER APPRENTICE x10(9)/L Basophils <0.03 0.01 - 03/19/2021 [facility] 0.08 8:05 AM BODY BUILDER APPRENTICE x10(9)/L Specimen Anatomical Collection Method Collection Time Receive d Time (Source) Location / / Volume Laterality Blood (Blood, 03/19/2021 7:39 AM 03/19/20 7:57 Venous) BODY BUILDER APPRENTICE AM BODY BUILDER APPRENTICE Darian Thomas M.D., J.D. LAB BLOOD ADD-ON Performing Organization Address City/[facility]/ZIP [facility] Phon e Number [facility]- [address] [place] [phone] [place] [address] (ABNORMAL) Bilirubin, Direct (03/19/2021 7:38 AM BODY BUILDER APPRENTICE) P athologist Signature Bilirubin, 1.6 (H) 0.0 - 0.3 03/19/2021 [facility] Direct, P mg/dL 1:13 PM BODY BUILDER APPRENTICE Specimen Anatomical Collection Method Collection Time Receive d Time (Source) Location / / Volume Laterality Blood (Blood, 03/19/2021 7:38 AM 03/19/20 Venous) BODY BUILDER APPRENTICE 12:25 PM BODY BUILDER APPRENTICE Keerthi Guzman M.D. LAB BLOOD ADD-ON Performing Organization Address City/[facility] Phon e Number [facility]- [address] [place] [phone] [place] [address] ECG 12 Lead (03/19/2021 6:44 AM BODY BUILDER APPRENTICE) P athologist Signature Ventricular Rate 108 BPM MUSE ECG/Min [place] Interval 156 ms MUSE QRSD Interval 82 ms MUSE QT Interval 298 ms MUSE QTC Interval 399 ms MUSE P Bement 43 degrees MUSE R Bement 41 degrees MUSE T Wave Bement -17 degrees MUSE Specimen Anatomical Collection Method Collection Time Receive d Time (Source) Location / / Volume Laterality 03/19/2021 6:44 AM 6:49 BODY BUILDER APPRENTICE AM BODY BUILDER APPRENTICE Impressions MUSE - 03/19/2021 6:49 AM BODY BUILDER APPRENTICE Sinus tachycardia Nonspecific T wave abnormality When [...] MUSE NA (ABNORMAL) Hemoglobin (03/18/2021 7:00 PM BODY BUILDER APPRENTICE) athologist Signature Hemoglobin 7.6 (L) 11.6 - 15.0 03/18/2021 [facility] g/dL 7:07 PM BODY BUILDER APPRENTICE Specimen Anatomical Collection Method Collection Time Receive d Time (Source) Location / / Volume Laterality Blood (Blood, 03/18/2021 7:00 PM 03/18/20 7:03 Venous) BODY BUILDER APPRENTICE PM BODY BUILDER APPRENTICE Darian Thomas M.D., J.D. LAB BLOOD ADD-ON Performing Organization Address [facility] Phon e Number [facility]- [address] [place] [phone] [place] [address] (ABNORMAL) Ammonia (03/18/2021 6:59 PM BODY BUILDER APPRENTICE) athologist Signature Ammonia, P 55 (H) <=51 03/18/2021 [facility] mcmol/L 7:23 PM BODY BUILDER APPRENTICE Specimen Anatomical Collection Method Collection Time Receive d Time (Source) Location / / Volume Laterality Blood (Blood, 03/18/2021 6:59 PM 03/18/20 7:03 Venous) BODY BUILDER APPRENTICE PM BODY BUILDER APPRENTICE Darian Thomas M.D., J.D. LAB BLOOD NON ADD-ON Performing Organization Address City/[facility]/ZIP Code Phon e Number [facility]- [address] [place] [phone] [place] [address] (ABNORMAL) Prothrombin Time (PT) (03/18/2021 8:35 AM BODY BUILDER APPRENTICE) [facility] gist Method Time Signature Prothrombin 28.8 (H) 9.4 - 12.5 03/18/2021 [facility] Time, P sec 9:20 AM BODY BUILDER APPRENTICE INR 2.6 0.9 - 1.1 03/18/2021 [facility] 9:20 AM BODY BUILDER APPRENTICE Comment: ----ADDITIONAL INFORMATION---- Standard intensity warfarin therapeutic range: 2.0 to 3.0 ?? High intensity warfarin therapeutic rang e: 2.5 to 3.5 Specimen Anatomical Collection Method Collection Time Receive d Time (Source) Location / / Volume Laterality Blood (Blood, 03/18/2021 8:35 AM 03/18/20 8:41 Venous) BODY BUILDER APPRENTICE AM BODY BUILDER APPRENTICE Darian Thomas M.D., J.D. LAB BLOOD ADD-ON Performing Organization Address City/State/ZIP Code Phon e Number [facility]- [address] [place] [address] [place] [address] (ABNORMAL) Comprehensive Metabolic Panel (03/18/2021 8:35 AM BODY BUILDER APPRENTICE) Analysis Performed At [facility] logist Time Signature Potassium, P 3.1 (L) 3.6 - 5.2 03/18/2021 [facility] mmol/L 9:07 AM BODY BUILDER APPRENTICE Sodium, P 141 135 - 145 03/18/2021 [facility] mmol/L 9:07 AM BODY BUILDER APPRENTICE Chloride, P 106 98 - 107 03/18/2021 [facility] mmol/L 9:07 AM BODY BUILDER APPRENTICE Bicarbonate, P 20 (L) 22 - 29 03/18/2021 [facility] mmol/L 9:07 AM BODY BUILDER APPRENTICE Anion Gap, P 15 7 - 15 03/18/2021 [facility] 9:07 AM BODY BUILDER APPRENTICE BUN (Blood Urea 7 6 - 21 03/18/2021 [facility] Nitrogen), P mg/dL 9:07 AM BODY BUILDER APPRENTICE Creatinine 0.32 (L) 0.59 - 03/18/2021 [facility] 1.04 mg/dL 9:07 AM BODY BUILDER APPRENTICE eGFR-Black/Afri >90 >=60 03/18/2021 [facility] can Cambodian mL/min/BSA 9:07 AM BODY BUILDER APPRENTICE Comment: ----ADDITIONAL INFORMATION---- Estimated GFR calculated using the 2009 CKD_EPI creatinine equation. eGFR Non-Black/ >90 >=60 mL/min/BSA 03/18/2021 9:07 AM BODY BUILDER APPRENTICE MKTO Comment: ----ADDITIONAL INFORMATION---- Estimated GFR calculated using the 2009 CKD_EPI creatinine equation. Calcium, Total, P 10.2 (H) 8.6 - 10.0 mg/dL 03/18/2021 9:07 AM BODY BUILDER APPRENTICE [facility] Glucose, P 109 70 - 140 mg/dL 03/18/2021 9:07 AM BODY BUILDER APPRENTICE M KTO Protein, Total, P 6.3 6.3 - 7.9 g/dL 03/18/2021 9:07 A M BODY BUILDER APPRENTICE MK[facility] Albumin, P 5.4 (H) 3.5 - 5.0 g/dL 03/18/2021 9:07 AM BODY BUILDER APPRENTICE M KTO Aspartate Aminotransferase 32 8 - 43 U/L 03/18/2021 9 :07 AM BODY BUILDER APPRENTICE MK[facility] (AST), P Alkaline Phosphatase, P 42 35 - 104 U/L 03/18/2021 9: 07 AM BODY BUILDER APPRENTICE MK[facility] Alanine Aminotransferase 8 7 - 45 U/L 03/18/2021 9:0 7 AM BODY BUILDER APPRENTICE [facility] (ALT), P Bilirubin, Total, P 7.7 (H) <=1.2 mg/dL 03/18/2021 9:07 AM BODY BUILDER APPRENTICE MK[facility] Specimen Anatomical Collection Method Collection Time Receive d Time (Source) Location / / Volume Laterality Blood (Blood, 03/18/2021 8:35 AM 03/18/20 21 8:41 Venous) BODY BUILDER APPRENTICE AM BODY BUILDER APPRENTICE Darian Thomas M.D., J.D. LAB BLOOD ADD-ON Performing Organization Address City/State/ZIP Code Phon e Number [facility]- [address] [place] [phone] [place] [address] System in [place] [address] [place] [address] (ABNORMAL) CBC with Differential, Blood (03/18/2021 8:35 AM BODY BUILDER APPRENTICE) [facility] gist Method Time Signature Hemoglobin 7.1 (L) 11.6 - 03/18/2021 [facility] 15.0 g/dL 8:46 AM BODY BUILDER APPRENTICE Hematocrit 21.3 (L) 35.5 - 03/18/2021 [facility] 44.9 % 8:46 AM BODY BUILDER APPRENTICE Erythrocytes 2.44 (L) 3.92 - 03/18/2021 [facility] 5.13 8:46 AM BODY BUILDER APPRENTICE x10(12)/L MCV 87.3 78.2 - 03/18/2021 [facility] 97.9 fL 8:46 AM BODY BUILDER APPRENTICE RBC Distrib Width 19.8 (H) 12.2 - 03/18/2021 MK[facility] 16.1 % 8:46 AM BODY BUILDER APPRENTICE Platelet Count 77 (L) 157 - 371 03/18/2021 [facility] x10(9)/L 8:46 AM BODY BUILDER APPRENTICE Leukocytes 6.2 3.4 - 9.6 03/18/2021 [facility] x10(9)/L 8:46 AM BODY BUILDER APPRENTICE Neutrophils 3.96 1.56 - 03/18/2021 [facility] 6.45 8:46 AM BODY BUILDER APPRENTICE x10(9)/L Lymphocytes 1.35 0.95 - 03/18/2021 [facility] 3.07 8:46 AM BODY BUILDER APPRENTICE x10(9)/L Monocytes 0.74 0.26 - 03/18/2021 [facility] 0.81 8:46 AM BODY BUILDER APPRENTICE x10(9)/L Eosinophils 0.08 0.03 - 03/18/2021 [facility] 0.48 8:46 AM BODY BUILDER APPRENTICE x10(9)/L Basophils <0.03 0.01 - 03/18/2021 [facility] 0.08 8:46 AM BODY BUILDER APPRENTICE x10(9)/L Specimen Anatomical Collection Method Collection Time Receive d Time (Source) Location / / Volume Laterality Blood (Blood, 03/18/2021 8:35 AM 03/18/20 8:41 Venous) BODY BUILDER APPRENTICE AM BODY BUILDER APPRENTICE Darian Thomas M.D., J.D. LAB BLOOD ADD-ON Performing Organization Address City/State/ZIP Code Phon e Number [facility]- [address] [place] [phone] [place] [address] System in [place] [address] [place] [address] Magnesium (03/17/2021 6:35 AM BODY BUILDER APPRENTICE) athologist Signature Magnesium, P 1.7 1.7 - 2.3 03/17/2021 [facility] mg/dL 7:24 AM BODY BUILDER APPRENTICE Specimen Anatomical Collection Method Collection Time Receive d Time (Source) Location / / Volume Laterality Blood (Blood, 03/17/2021 6:35 AM 03/17/20 6:43 Venous) BODY BUILDER APPRENTICE AM BODY BUILDER APPRENTICE Ulises Santillan LAB BLOOD ADD-ON Performing Organization Address City/State/ZIP Code Phon e Number [facility]- [address] [place] [phone] [place] [address] [place] [address] (ABNORMAL) Basic Metabolic Panel (03/17/2021 6:35 AM BODY BUILDER APPRENTICE) Analysis Performed At Patho logist Time Signature Potassium, P 3.7 3.6 - 5.2 03/17/2021 [facility] mmol/L 7:24 AM BODY BUILDER APPRENTICE Sodium, P 141 135 - 145 03/17/2021 [facility] mmol/L 7:24 AM BODY BUILDER APPRENTICE Chloride, P 106 98 - 107 03/17/2021 [facility] mmol/L 7:24 AM BODY BUILDER APPRENTICE Bicarbonate, P 21 (L) 22 - 29 03/17/2021 [facility] mmol/L 7:24 AM BODY BUILDER APPRENTICE Anion Gap, P 14 7 - 15 03/17/2021 [facility] 7:24 AM BODY BUILDER APPRENTICE BUN (Blood Urea 5 (L) 6 - 21 03/17/2021 [facility] Nitrogen), P mg/dL 7:24 AM BODY BUILDER APPRENTICE Creatinine 0.35 (L) 0.59 - 03/17/2021 [facility] 1.04 mg/dL 7:24 AM BODY BUILDER APPRENTICE eGFR-Black/Afri >90 >=60 03/17/2021 [facility] can Cambodian mL/min/BSA 7:24 AM BODY BUILDER APPRENTICE Comment: ----ADDITIONAL INFORMATION---- Estimated GFR calculated using the 2009 CKD_EPI creatinine equation. eGFR Non-Black/ >90 >=60 mL/min/BSA 03/17/2021 7:24 AM BODY BUILDER APPRENTICE MKTO Comment: ----ADDITIONAL INFORMATION---- Estimated GFR calculated using the 2009 CKD_EPI creatinine equation. Calcium, Total, P 9.7 8.6 - 10.0 mg/dL 03/17/2021 7:24 AM BODY BUILDER APPRENTICE MKTO Glucose, P 116 70 - 140 mg/dL 03/17/2021 7:24 AM BODY BUILDER APPRENTICE M KTO Specimen Anatomical Collection Method Collection Time Receive d Time (Source) Location / / Volume Laterality Blood (Blood, 03/17/2021 6:35 AM 03/17/20 6:43 Venous) BODY BUILDER APPRENTICE AM BODY BUILDER APPRENTICE Harish Ansari P.A.-C., M.S. LAB BLOOD ADD-ON Performing Organization Address City/State/ZIP Code Phon e Number [facility]- [address] [place] [phone] [place] [address] [place] [address] (ABNORMAL) CBC with Differential, Blood (03/17/2021 6:35 AM BODY BUILDER APPRENTICE) [facility] gist Method Time Signature Hemoglobin 7.7 (L) 11.6 - 03/17/2021 [facility] 15.0 g/dL 6:58 AM BODY BUILDER APPRENTICE Hematocrit 22.3 (L) 35.5 - 03/17/2021 [facility] 44.9 % 6:58 AM BODY BUILDER APPRENTICE Erythrocytes 2.56 (L) 3.92 - 03/17/2021 [facility] 5.13 6:58 AM BODY BUILDER APPRENTICE x10(12)/L MCV 87.1 78.2 - 03/17/2021 [facility] 97.9 fL 6:58 AM [employer] BUILDER APPRENTICE RBC Distrib Width 19.3 (H) 12.2 - 03/17/2021 [facility] 16.1 % 6:58 AM BODY BUILDER APPRENTICE Platelet Count 68 (L) 157 - 371 03/17/2021 [facility] x10(9)/L 6:58 AM [employer]ODY BUILDER APPRENTICE Leukocytes 6.1 3.4 - 9.6 03/17/2021 [facility] x10(9)/L 6:58 AM BODY BUILDER APPRENTICE Neutrophils 3.82 1.56 - 03/17/2021 [facility] 6.45 6:58 AM BODY BUILDER APPRENTICE x10(9)/L Lymphocytes 1.39 0.95 - 03/17/2021 [facility] 3.07 6:58 AM BODY BUILDER APPRENTICE x10(9)/L Monocytes 0.77 0.26 - 03/17/2021 [facility] 0.81 6:58 AM BODY BUILDER APPRENTICE x10(9)/L Eosinophils 0.05 0.03 - 03/17/2021 [facility] 0.48 6:58 AM BODY BUILDER APPRENTICE x10(9)/L Basophils <0.03 0.01 - 03/17/2021 MKTO 0.08 6:58 AM BODY BUILDER APPRENTICE x10(9)/L Specimen Anatomical Collection Method Collection Time Receive d Time (Source) Location / / Volume Laterality Blood (Blood, 03/17/2021 6:35 AM 03/17/20 6:42 Venous) BODY BUILDER APPRENTICE AM BODY BUILDER APPRENTICE Harish Ansari P.A.-C., M.S. LAB BLOOD ADD-ON Performing Organization Address City/[facility]/ZIP Code Phon e Number [address] [address] [facility] [place] [phone] System [address] (ABNORMAL) Hematocrit (03/16/2021 4:14 PM BODY BUILDER APPRENTICE) P athologist Signature Hematocrit 23.7 (L) 35.5 - 44.9 03/16/2021 MKTO % 4:25 PM BODY BUILDER APPRENTICE Specimen Anatomical Collection Method Collection Time Receive d Time (Source) Location / / Volume Laterality Blood (Blood, 03/16/2021 4:14 PM 03/16/20 4:23 Venous) BODY BUILDER APPRENTICE PM BODY BUILDER APPRENTICE Lizet Navarro M.D. LAB BLOOD ADD-ON Performing Organization Address City/[facility]/ZIP Code Phon e Number [address] [address] [facility] [place] [address] (ABNORMAL) Hemoglobin (03/16/2021 4:14 PM BODY BUILDER APPRENTICE) P athologist Signature Hemoglobin 8.2 (L) 11.6 - 15.0 03/16/2021 MKTO g/dL 4:25 PM BODY BUILDER APPRENTICE Specimen Anatomical Collection Method Collection Time Receive d Time (Source) Location / / Volume Laterality Blood (Blood, 03/16/2021 4:14 PM 03/16/20 4:23 Venous) BODY BUILDER APPRENTICE PM BODY BUILDER APPRENTICE Lizet Navarro M.D. LAB BLOOD ADD-ON Performing Organization Address City/State/ZIP Code Phon e Number [facility]- [address] [place] [address] [place] [address] (ABNORMAL) Hematocrit (03/16/2021 12:58 PM BODY BUILDER APPRENTICE) P athologist Signature Hematocrit 24.8 (L) 35.5 - 44.9 03/16/2021 MKTO % 1:27 PM BODY BUILDER APPRENTICE Specimen Anatomical Collection Method Collection Time Receive d Time (Source) Location / / Volume Laterality Blood (Blood, 03/16/2021 12:58 03/16/2021 1:04 Venous) PM BODY BUILDER APPRENTICE PM BODY BUILDER APPRENTICE Lizet Navarro M.D. LAB BLOOD ADD-ON Performing Organization Address City/State/[facility] Phon e Number [facility]- [address] [place] [phone] [place] [address] [address] (ABNORMAL) Hemoglobin (03/16/2021 12:58 PM BODY BUILDER APPRENTICE) P athologist Signature Hemoglobin 8.3 (L) 11.6 - 15.0 03/16/2021 MKTO g/dL 1:27 PM BODY BUILDER APPRENTICE Specimen Anatomical Collection Method Collection Time Receive d Time (Source) Location / / Volume Laterality Blood (Blood, 03/16/2021 12:58 03/16/2021 1:04 Venous) PM BODY BUILDER APPRENTICE PM BODY BUILDER APPRENTICE Lizet Navarro M.D. LAB BLOOD ADD-ON Performing Organization Address City/State/ZIP Code Phon e Number [facility]- [address] [place] [address] [place] [address] Transfuse Red Blood Cells : (03/16/2021 11:58 AM BODY BUILDER APPRENTICE) Lizet Navarro M.D. BLOOD TRANSFUSION ORDERABLES Transfuse Red Blood Cells : , 2 Units (03/16/2021 11:58 AM BODY BUILDER APPRENTICE) Lizet Navarro M.D. BLOOD TRANSFUSION ORDERABLES Transfuse Red Blood Cells : (03/16/2021 11:08 AM BODY BUILDER APPRENTICE) Lizet Navarro M.D. BLOOD TRANSFUSION ORDERABLES Transfuse Fresh Frozen Plasma :Bleeding with altered coagulation; 180 mL/hr (03/16/2021 10:21 AM BODY BUILDER APPRENTICE) Lizet Navarro M.D. BLOOD TRANSFUSION ORDERABLES Transfuse Fresh Frozen Plasma :Bleeding with altered coagulation; 180 mL/hr, 2 Units (03/16/2021 10:21 AM BODY BUILDER APPRENTICE) Lizet Navarro M.D. BLOOD TRANSFUSION ORDERABLES Transfuse Fresh Frozen Plasma :Bleeding with altered coagulation; 180 mL/hr (03/16/2021 10:20 AM BODY BUILDER APPRENTICE) Lizet Navarro M.D. BLOOD TRANSFUSION ORDERABLES Transfuse Red Blood Cells : (03/16/2021 9:06 AM BODY BUILDER APPRENTICE) Nola Huitron APRN, C.N.P., M.S.N. BLOOD TRANSFUSI ON ORDERABLES Transfuse Red Blood Cells : , 1 Units (03/16/2021 9:06 AM BODY BUILDER APPRENTICE) Nola Huitron APRN, C.N.P., M.S.N. BLOOD TRANSFUSI ON ORDERABLES (ABNORMAL) Fibrinogen (03/16/2021 7:32 AM BODY BUILDER APPRENTICE) P athologist Signature Fibrinogen, P 135 (L) 200 - 393 03/16/2021 MKTO mg/dL 7:56 AM BODY BUILDER APPRENTICE Specimen Anatomical Collection Method Collection Time Receive d Time (Source) Location / / Volume Laterality Blood (Blood, 03/16/2021 7:32 AM 03/16/20 7:40 Venous) BODY BUILDER APPRENTICE AM BODY BUILDER APPRENTICE Tariq Santillan LAB BLOOD ADD-ON Performing Organization Address City/State/ZIP Code Phon e Number [facility]- [address] [place] [phone] [place] [address] System [address] (ABNORMAL) APTT (Activated Partial Thromboplastin Time) (03/16/2021 7:32 AM BODY BUILDER APPRENTICE) P athologist Signature Activated 54 (H) 25 - 37 03/16/2021 MKTO Partial sec 7:53 AM BODY BUILDER APPRENTICE Thrombopl Time, P Specimen Anatomical Collection Method Collection Time Receive d Time (Source) Location / / Volume Laterality Blood (Blood, 03/16/2021 7:32 AM 03/16/20 7:40 Venous) BODY BUILDER APPRENTICE AM BODY BUILDER APPRENTICE Tariq DanielSSuma LAB BLOOD ADD-ON Performing Organization Address [facility]/ZIP [facility] Phon e Number [facility]- [address] [place] [address] [place] [address] (ABNORMAL) Prothrombin Time (PT) (03/16/2021 7:32 AM BODY BUILDER APPRENTICE) Patholo gist Method Time Signature Prothrombin 23.4 (H) 9.4 - 12.5 03/16/2021 MKTO Time, P sec 7:51 AM BODY BUILDER APPRENTICE INR 2.1 0.9 - 1.1 03/16/2021 MKTO 7:51 AM BODY BUILDER APPRENTICE Comment: ----ADDITIONAL INFORMATION---- Standard intensity warfarin therapeutic range: 2.0 to 3.0 ?? High intensity warfarin therapeutic rang e: 2.5 to 3.5 Specimen Anatomical Collection Method Collection Time Receive d Time (Source) Location / / Volume Laterality Blood (Blood, 03/16/2021 7:32 AM 03/16/20 7:40 Venous) BODY BUILDER APPRENTICE AM BODY BUILDER APPRENTICE Tariq Santoyo.S. LAB BLOOD ADD-ON Performing Organization Address City/[facility] Phon e Number [facility]- [address] [place] [phone] [place] [address] (ABNORMAL) Hemoglobin (03/16/2021 7:31 AM BODY BUILDER APPRENTICE) P athologist Signature Hemoglobin 5.3 (CL) 11.6 - 15.0 03/16/2021 MKTO g/dL 7:57 AM BODY BUILDER APPRENTICE Specimen Anatomical Collection Method Collection Time Receive d Time (Source) Location / / Volume Laterality Blood (Blood, 03/16/2021 7:31 AM 03/16/20 7:40 Venous) BODY BUILDER APPRENTICE AM BODY BUILDER APPRENTICE Tariq DanielS. LAB BLOOD ADD-ON Performing Organization Address City/State/ZIP [facility] Phon e Number [facility]- [address] [place] [phone] [place] [address] [address] Testing Location (03/16/2021 5:44 AM BODY BUILDER APPRENTICE) athologist Signature Testing [facility] DEFAULT 03/16/2021 MKTO Location 5:50 AM BODY BUILDER APPRENTICE Specimen Anatomical Collection Method Collection Time Receive d Time (Source) Location / / Volume Laterality Blood 03/16/2021 5:44 AM 5:49 BODY BUILDER APPRENTICE AM BODY BUILDER APPRENTICE Tariq DanielSSuma LAB BLOOD BANK TEST ORDERABL ES Performing Organization Address City/[facility] Phon e Number [facility]- [address] [place] [address] [place] [address] Type and Screen (with reflex Antibody ID) (03/16/2021 5:44 AM BODY BUILDER APPRENTICE) [facility] gist Method Time Signature ABO Group B 03/16/2021 MKTO 6:49 AM BODY BUILDER APPRENTICE Rh Type POS 03/16/2021 MKTO 6:49 AM BODY BUILDER APPRENTICE Antibody Screen NEG 03/16/2021 MKTO 6:49 AM BODY BUILDER APPRENTICE Type & Screen 03/19/2021 03/16/2021 MKTO Expiration 23:59 6:49 AM BODY BUILDER APPRENTICE ELXM Eligible Y 03/16/2021 MKTO 6:49 AM BODY BUILDER APPRENTICE Specimen Anatomical Collection Method Collection Time Receive d Time (Source) Location / / Volume Laterality Blood (Blood, 03/16/2021 5:44 AM 03/16/20 5:49 Venous) BODY BUILDER APPRENTICE AM BODY BUILDER APPRENTICE Tariq DanielSSuma LAB BLOOD BANK TEST ORDERABL ES Performing Organization Address City/[facility] Phon e Number [facility]- [address] [place] [phone] [place] [address] [address] Glucose, POCT (03/16/2021 5:43 AM BODY BUILDER APPRENTICE) athologist Signature Glucose, POCT, 121 70 - 140 03/16/2021 MKTO B mg/dL 5:43 AM BODY BUILDER APPRENTICE Specimen Anatomical Collection Method Collection Time Receive d Time (Source) Location / / Volume Laterality Blood 03/16/2021 5:43 AM 1 5:57 BODY BUILDER APPRENTICE AM BODY BUILDER APPRENTICE Nick Rals LAB POCT ORDERABLES-MANUAL Performing Organization Address City/[facility] Phon e Number [facility]- [address] [place] [phone] [place] [address] Transfuse Fresh Frozen Plasma :Bleeding with altered coagulation; 180 mL/hr (03/16/2021 5:00 AM BODY BUILDER APPRENTICE) Lizet Navarro M.D. BLOOD TRANSFUSION ORDERABLES Transfuse Fresh Frozen Plasma :Bleeding with altered coagulation; 180 mL/hr, 2 Units (03/16/2021 5:00 AM BODY BUILDER APPRENTICE) Lizet Navarro M.D. BLOOD TRANSFUSION ORDERABLES (ABNORMAL) Calcium, Ionized (03/16/2021 4:57 AM BODY BUILDER APPRENTICE) athologist Signature Calcium, 4.49 (L) 4.65 - 03/16/2021 MKTO Ionized, B 5.30 mg/dL 5:19 AM BODY BUILDER APPRENTICE Specimen Anatomical Collection Method Collection Time Receive d Time (Source) Location / / Volume Laterality Blood 03/16/2021 4:57 AM 1 5:05 BODY BUILDER APPRENTICE AM BODY BUILDER APPRENTICE Katrin Thomas APRN.N.Shanita., M.S.N. LAB BLOOD NON A DD-ON Performing Organization Address City/State/ZIP Code Phon e Number [facility]- [address] [place] [phone] [place] [address] (ABNORMAL) pH (03/16/2021 4:57 AM BODY BUILDER APPRENTICE) athologist Signature pH 7.49 (H) 7.35 - 7.45 03/16/2021 MKTO pH 5:19 AM BODY BUILDER APPRENTICE Specimen Anatomical Collection Method Collection Time Receive d Time (Source) Location / / Volume Laterality Blood 03/16/2021 4:57 AM 5:05 BODY BUILDER APPRENTICE AM BODY BUILDER APPRENTICE Nola Huitron APRN, C.N.P., M.S.N. LAB HISTORICAL ORDERS Performing Organization Address [facility] Phon e Number [address] [address] [place] [address] (ABNORMAL) CBC without Differential (03/16/2021 4:21 AM BODY BUILDER APPRENTICE) [facility] gist Method Time Signature Hemoglobin 6.2 (L) 11.6 - 03/16/2021 MKTO 15.0 g/dL 4:54 AM BODY BUILDER APPRENTICE Hematocrit 18.3 (L) 35.5 - 03/16/2021 MKTO 44.9 % 4:54 AM BODY BUILDER APPRENTICE Erythrocytes 1.95 (L) 3.92 - 03/16/2021 MKTO 5.13 4:54 AM BODY BUILDER APPRENTICE x10(12)/L MCV 93.8 78.2 - 03/16/2021 MKTO 97.9 fL 4:54 AM BODY BUILDER APPRENTICE RBC Distrib Width 20.1 (H) 12.2 - 03/16/2021 MKTO 16.1 % 4:54 AM BODY BUILDER APPRENTICE Platelet Count 80 (L) 157 - 371 03/16/2021 MKTO x10(9)/L 4:54 AM BODY BUILDER APPRENTICE Leukocytes 6.3 3.4 - 9.6 03/16/2021 MKTO x10(9)/L 4:54 AM BODY BUILDER APPRENTICE Specimen Anatomical Collection Method Collection Time Receive d Time (Source) Location / / Volume Laterality Blood (Blood, 03/16/2021 4:21 AM 03/16/20 4:30 Venous) BODY BUILDER APPRENTICE AM BODY BUILDER APPRENTICE Nola Huitron APRN, C.N.P., M.S.N. LAB BLOOD ADD-O N Performing Organization Address [facility] Phon e Number [facility]- [address] [place] [address] [place] [address] (ABNORMAL) Comprehensive Metabolic Panel (03/16/2021 4:21 AM BODY BUILDER APPRENTICE) Analysis Performed At [facility] Time Signature Potassium, P 3.6 3.6 - 5.2 03/16/2021 MKTO mmol/L 4:53 AM BODY BUILDER APPRENTICE Sodium, P 140 135 - 145 03/16/2021 MKTO mmol/L 4:53 AM BODY BUILDER APPRENTICE Chloride, P 109 (H) 98 - 107 03/16/2021 MKTO mmol/L 4:53 AM BODY BUILDER APPRENTICE Bicarbonate, P 20 (L) 22 - 29 03/16/2021 MKTO mmol/L 4:53 AM BODY BUILDER APPRENTICE Anion Gap, P 11 7 - 15 03/16/2021 MKTO 4:53 AM BODY BUILDER APPRENTICE BUN (Blood Urea 5 (L) 6 - 21 03/16/2021 MKTO Nitrogen), P mg/dL 4:53 AM BODY BUILDER APPRENTICE Creatinine 0.40 (L) 0.59 - 03/16/2021 MKTO 1.04 mg/dL 4:53 AM BODY BUILDER APPRENTICE eGFR-Black/Afri >90 >=60 03/16/2021 MKTO can Cambodian mL/min/BSA 5:29 AM BODY BUILDER APPRENTICE Comment: ----ADDITIONAL INFORMATION---- Estimated GFR calculated using the 2009 CKD_EPI creatinine equation. eGFR Non-Black/ >90 >=60 mL/min/BSA 03/16/2021 5:29 AM BODY BUILDER APPRENTICE MKTO Comment: ----ADDITIONAL INFORMATION---- Estimated GFR calculated using the 2009 CKD_EPI creatinine equation. Calcium, Total, P 8.9 8.6 - 10.0 mg/dL 03/16/2021 4:53 AM BODY BUILDER APPRENTICE MKTO Glucose, P 135 70 - 140 mg/dL 03/16/2021 4:53 AM BODY BUILDER APPRENTICE M KTO Protein, Total, P 5.2 (L) 6.3 - 7.9 g/dL 03/16/2021 4:53 A M BODY BUILDER APPRENTICE MKTO Albumin, P 4.0 3.5 - 5.0 g/dL 03/16/2021 4:53 AM BODY BUILDER APPRENTICE M KTO Aspartate Aminotransferase 33 8 - 43 U/L 03/16/2021 4 :53 AM BODY BUILDER APPRENTICE MKTO (AST), P Alkaline Phosphatase, P 43 35 - 104 U/L 03/16/2021 4: 53 AM BODY BUILDER APPRENTICE MKTO Alanine Aminotransferase 8 7 - 45 U/L 03/16/2021 4:5 3 AM BODY BUILDER APPRENTICE MKTO (ALT), P Bilirubin, Total, P 5.1 (H) <=1.2 mg/dL 03/16/2021 4:53 AM BODY BUILDER APPRENTICE MKTO Specimen Anatomical Collection Method Collection Time Receive d Time (Source) Location / / Volume Laterality Blood (Blood, 03/16/2021 4:21 AM 03/16/20 4:53 Venous) BODY BUILDER APPRENTICE AM BODY BUILDER APPRENTICE Nola Huitron APRN, C.N.P., M.S.N. LAB BLOOD ADD-O N Performing Organization Address [facility] Phon e Number [address] [address] [place] [address] (ABNORMAL) Phosphorus Inorganic (03/16/2021 4:21 AM BODY BUILDER APPRENTICE) P athologist Signature Phosphorus 2.0 (L) 2.5 - 4.5 03/16/2021 MKTO (Inorganic), P mg/dL 4:53 AM BODY BUILDER APPRENTICE Specimen Anatomical Collection Method Collection Time Receive d Time (Source) Location / / Volume Laterality Blood (Blood, 03/16/2021 4:21 AM 03/16/20 4:53 Venous) BODY BUILDER APPRENTICE AM BODY BUILDER APPRENTICE Nola Huitron APRN, C.N.P., M.S.N. LAB BLOOD ADD-O N Performing Organization Address [facility] Phon e Number [address] [address] [place] [address] System in [address] Magnesium (03/16/2021 4:21 AM BODY BUILDER APPRENTICE) P athologist Signature Magnesium, P 1.7 1.7 - 2.3 03/16/2021 MKTO mg/dL 4:53 AM BODY BUILDER APPRENTICE Specimen Anatomical Collection Method Collection Time Receive d Time (Source) Location / / Volume Laterality Blood (Blood, 03/16/2021 4:21 AM 03/16/20 4:53 Venous) BODY BUILDER APPRENTICE AM BODY BUILDER APPRENTICE Lowell Thomas APRNN.Shanita., M.S.N. 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 BLOOD TRANSFUSI ON ORDERABLES Transfuse Pooled Cryoprecipitate:Bleeding with Fibrinogen deficiency; 180 mL/hr (03/16/2021 3:17 AM BODY BUILDER APPRENTICE) Nola Huitron APRN, C.N.P., M.S.N. BLOOD TRANSFUSI ON ORDERABLES CT Abdomen Pelvis with IV Contrast (03/16/2021 2:36 AM BODY BUILDER APPRENTICE) Anatomical Region Laterality Modality Abdomen, Pelvis, Abdominal RST LOS, Abdominal ARZ LOS, N/A Computed Tomography Abdominal FLA LOS Specimen (Source) Anatomical Collection Method Collection Time Re ceived Time Location / / Volume Laterality 03/16/2021 7:41 AM BODY BUILDER APPRENTICE Impressions 03/16/2021 7:49 AM BODY BUILDER APPRENTICE 1. Newly identified CHF, with associated compressive atelectasis at each lung base. 2. Stable abdominal ascites with no iden tified area of hemorrhage. 3. Newly identified anasarca. 4. Heterogeneous appearance of the liver with splenomegaly, the combination of findings suggestive of hepatic inflammat ion. Clinical correlation is recommended. Narrative 03/16/2021 7:49 AM BODY BUILDER APPRENTICE EXAM: CT ABDOMEN PELVIS WITH IV CONTRAST [...] hailey picious lesion. vRad: ??Findings concordant with prelimi ewelina Cullenad report. Procedure Note Migue Andrews M.D. - [...] picious lesion. vRad: Findings concordant with prelimina rere vRad report. IMPRESSION: 1. Newly identified CHF, with associated compressive atelectasis at each lung base. 2. Stable abdominal ascites with no iden tified area of hemorrhage. 3. Newly identified anasarca. 4. Heterogeneous appearance of the liver with splenomegaly, the combination of findings suggestive of hepatic inflammat ion. Clinical correlation is recommended. Tariq DanielS. IMG CT PROCEDURES Test, POCT, Urine (lab) (03/16/2021 2:11 AM BODY BUILDER APPRENTICE) athologist Signature Negative 03/16/2021 MKTO Test, POCT, U 2:19 AM BODY BUILDER APPRENTICE Specimen Anatomical Collection Method Collection Time Receive d Time (Source) Location / / Volume Laterality Urine (Urine, 03/16/2021 2:11 AM 03/16/20 2:11 Clean Catch) BODY BUILDER APPRENTICE AM BODY BUILDER APPRENTICE Tariq CheryB.S. LAB POCT ORDERABLES - DEVICE Performing Organization Address City/[facility] Phon e Number [address] [address] [place] [address] (ABNORMAL) Fibrinogen (03/16/2021 1:11 AM BODY BUILDER APPRENTICE) athologist [facility] Fibrinogen, P 57 (CL) 200 - 393 03/16/2021 MKTO mg/dL 1:46 AM BODY BUILDER APPRENTICE Specimen Anatomical Collection Method Collection Time Receive d Time (Source) Location / / Volume Laterality Blood (Blood, 03/16/2021 1:11 AM 03/16/20 1:15 Venous) BODY BUILDER APPRENTICE AM BODY BUILDER APPRENTICE Tariq CheryB.S. LAB BLOOD ADD-ON Performing Organization Address City/[facility] Phon e Number [address] [address] [place] [address] [address] (ABNORMAL) APTT (Activated Partial Thromboplastin Time) (03/16/2021 1:11 AM BODY BUILDER APPRENTICE) athologist [facility] Activated 61 (H) 25 - 37 03/16/2021 MKTO Partial sec 1:29 AM BODY BUILDER APPRENTICE Thrombopl Time, P Specimen Anatomical Collection Method Collection Time Receive d Time (Source) Location / / Volume Laterality Blood (Blood, 03/16/2021 1:11 AM 03/16/20 1:15 Venous) BODY BUILDER APPRENTICE AM BODY BUILDER APPRENTICE Tariq DanielS. LAB BLOOD ADD-ON Performing Organization Address City/[facility]/ZIP [facility] Phon e Number [facility]- [facility] [place] [address] [place] [address] System in [place] [address] [facility] (ABNORMAL) Prothrombin Time (PT) (03/16/2021 1:11 AM BODY BUILDER APPRENTICE) Patholo gist Method Time Signature Prothrombin 26.9 (H) 9.4 - 12.5 03/16/2021 MKTO Time, P sec 1:45 AM BODY BUILDER APPRENTICE INR 2.4 0.9 - 1.1 03/16/2021 MKTO 1:45 AM BODY BUILDER APPRENTICE Comment: ----ADDITIONAL INFORMATION---- Standard intensity warfarin therapeutic range: 2.0 to 3.0 ?? High intensity warfarin therapeutic rang e: 2.5 to 3.5 Specimen Anatomical Collection Method Collection Time Receive d Time (Source) Location / / Volume Laterality Blood (Blood, 03/16/2021 1:11 AM 03/16/20 1:15 Venous) BODY BUILDER APPRENTICE AM BODY BUILDER APPRENTICE Tariq CheryB.S. LAB BLOOD ADD-ON Performing Organization Address City/State/ZIP Code Phon e Number [facility]- [facility] [place] [address] [place] [address] System in [place] [address] [facility] Potassium (03/16/2021 12:08 AM BODY BUILDER APPRENTICE) P athologist Signature Potassium, P 3.9 3.6 - 5.2 03/16/2021 MKTO mmol/L 12:33 AM BODY BUILDER APPRENTICE Specimen Anatomical Collection Method Collection Time Receive d Time (Source) Location / / Volume Laterality Blood (Blood, 03/16/2021 12:08 03/16/2021 Venous) AM BODY BUILDER APPRENTICE 12:33 AM BODY BUILDER APPRENTICE Tariq Santillan LAB BLOOD ADD-ON Performing Organization Address City/[facility]/ZIP Code Phon e Number [facility]- [address] [place] [address] [place] [address] (ABNORMAL) Hemoglobin (03/16/2021 12:08 AM BODY BUILDER APPRENTICE) athologist Signature Hemoglobin 7.3 (L) 11.6 - 15.0 03/16/2021 MKTO g/dL 12:26 AM BODY BUILDER APPRENTICE Specimen Anatomical Collection Method Collection Time Receive d Time (Source) Location / / Volume Laterality Blood (Blood, 03/16/2021 12:08 03/16/2021 Venous) AM BODY BUILDER APPRENTICE 12:26 AM BODY BUILDER APPRENTICE Nola Huitron APRN, C.N.P., M.S.N. LAB BLOOD ADD-O N Performing Organization Address City/[facility]/ZIP Code Phon e Number [facility]- [address] [place] [phone] [place] [address] (ABNORMAL) Glucose, POCT (03/15/2021 11:33 PM BODY BUILDER APPRENTICE) athologist Signature Glucose, POCT, 160 (H) 70 - 140 03/15/2021 MKTO B mg/dL 11:33 PM BODY BUILDER APPRENTICE Specimen Anatomical Collection Method Collection Time Receive d Time (Source) Location / / Volume Laterality Blood 03/15/2021 11:33 03/16/2021 PM BODY BUILDER APPRENTICE 12:15 AM BODY BUILDER APPRENTICE Generic Rals LAB POCT ORDERABLES-MANUAL Performing Organization Address City/[facility]/ZIP Code Phon e Number [facility]- [address] [place] [address] [place] [address] Transfuse Red Blood Cells : (03/15/2021 11:07 PM BODY BUILDER APPRENTICE) Lowell Thomas APRNNDayne, M.S.N. BLOOD TRANSFUSI ON ORDERABLES Transfuse Red Blood Cells : , 1 Units (03/15/2021 11:07 PM BODY BUILDER APPRENTICE) Nola Huitron APRN, C.N.P., M.S.N. BLOOD TRANSFUSI ON ORDERABLES (ABNORMAL) Hemoglobin (03/15/2021 8:11 PM BODY BUILDER APPRENTICE) athologist Signature Hemoglobin 6.6 (L) 11.6 - 15.0 03/15/2021 MKTO g/dL 8:27 PM BODY BUILDER APPRENTICE Specimen Anatomical Collection Method Collection Time Receive d Time (Source) Location / / Volume Laterality Blood (Blood, 03/15/2021 8:11 PM 03/15/20 8:23 Venous) BODY BUILDER APPRENTICE PM BODY BUILDER APPRENTICE Nola Huitron APRN, C.N.P., M.S.N. LAB BLOOD ADD-O N Performing Organization Address [facility] Phon e Number [address] [place] [address] Transfuse Fresh Frozen Plasma :Bleeding with altered coagulation; 180 mL/hr (03/15/2021 6:20 PM BODY BUILDER APPRENTICE) Jailene Barnhart RDN, TALI BLOOD TRANSFUSION ORDERABLES (ABNORMAL) Hemoglobin (03/15/2021 4:52 PM BODY BUILDER APPRENTICE) athologist Signature Hemoglobin 7.6 (L) 11.6 - 15.0 03/15/2021 MKTO g/dL 4:57 PM BODY BUILDER APPRENTICE Specimen Anatomical Collection Method Collection Time Receive d Time (Source) Location / / Volume Laterality Blood (Blood, 03/15/2021 4:52 PM 03/15/20 4:55 Venous) BODY BUILDER APPRENTICE PM BODY BUILDER APPRENTICE Lizet Navarro M.D. LAB BLOOD ADD-ON Performing Organization Address [facility] Phon e Number [address] [address] [place] [address] (ABNORMAL) Hematocrit (03/15/2021 4:52 PM BODY BUILDER APPRENTICE) athologist Signature Hematocrit 22.4 (L) 35.5 - 44.9 03/15/2021 MKTO % 4:57 PM BODY BUILDER APPRENTICE Specimen Anatomical Collection Method Collection Time Receive d Time (Source) Location / / Volume Laterality Blood (Blood, 03/15/2021 4:52 PM 03/15/20 4:55 Venous) BODY BUILDER APPRENTICE PM BODY BUILDER APPRENTICE Lizet Navarro M.D. LAB BLOOD ADD-ON Performing Organization Address City/[facility]/ZIP [facility] Phon e Number [address] [address] [place] [address] Transfuse Fresh Frozen Plasma :Bleeding with altered coagulation; 180 mL/hr (03/15/2021 3:34 PM BODY BUILDER APPRENTICE) Lizet Navarro M.D. BLOOD TRANSFUSION ORDERABLES (ABNORMAL) Phosphorus Inorganic (03/15/2021 2:29 PM BODY BUILDER APPRENTICE) P athologist Signature Phosphorus 2.3 (L) 2.5 - 4.5 03/15/2021 MKTO (Inorganic), P mg/dL 5:27 PM BODY BUILDER APPRENTICE Specimen Anatomical Collection Method Collection Time Receive d Time (Source) Location / / Volume Laterality Blood (Blood, 03/15/2021 2:29 PM 03/15/20 5:12 Venous) BODY BUILDER APPRENTICE PM BODY BUILDER APPRENTICE Lizet Navarro M.D. LAB BLOOD ADD-ON Performing Organization Address City/[facility] Code Phon e Number [address] [address] [place] [phone] System in [address] Magnesium (03/15/2021 2:29 PM BODY BUILDER APPRENTICE) P athologist Signature Magnesium, P 1.8 1.7 - 2.3 03/15/2021 MK[facility] mg/dL 5:27 PM BODY BUILDER APPRENTICE Specimen Anatomical Collection Method Collection Time Receive d Time (Source) Location / / Volume Laterality Blood (Blood, 03/15/2021 2:29 PM 03/15/20 21 5:12 Venous) BODY BUILDER APPRENTICE PM BODY BUILDER APPRENTICE Lizet Navarro M.D. LAB BLOOD ADD-ON Performing Organization Address City/[facility]/ZIP Code Phon e Number [facility]- [address] [place] [phone] [place] [address] (ABNORMAL) Hemoglobin (03/15/2021 2:29 PM BODY BUILDER APPRENTICE) P athologist Signature Hemoglobin 7.9 (L) 11.6 - 15.0 03/15/2021 MK[facility] g/dL 2:50 PM BODY BUILDER APPRENTICE Specimen Anatomical Collection Method Collection Time Receive d Time (Source) Location / / Volume Laterality Blood (Blood, 03/15/2021 2:29 PM 03/15/20 2:43 Venous) BODY BUILDER APPRENTICE PM BODY BUILDER APPRENTICE Lizet Navarro M.D. LAB BLOOD ADD-ON Performing Organization Address City/[facility]/ZIP Code Phon e Number [facility]- [address] [place] [address] [place] [address] System [place] [address] (ABNORMAL) Hematocrit (03/15/2021 2:29 PM BODY BUILDER APPRENTICE) P athologist Signature Hematocrit 23.3 (L) 35.5 - 44.9 03/15/2021 MKTO % 2:50 PM BODY BUILDER APPRENTICE Specimen Anatomical Collection Method Collection Time Receive d Time (Source) Location / / Volume Laterality Blood (Blood, 03/15/2021 2:29 PM 03/15/20 2:43 Venous) BODY BUILDER APPRENTICE PM BODY BUILDER APPRENTICE Lizet Navarro M.D. LAB BLOOD ADD-ON Performing Organization Address City/[facility]/ZIP Code Phon e Number [facility]- [address] [place] [address] [place] [address] (ABNORMAL) Basic Metabolic Panel (03/15/2021 2:29 PM BODY BUILDER APPRENTICE) Analysis Performed At Patho logist Time Signature Potassium, P 3.2 (L) 3.6 - 5.2 03/15/2021 MKTO mmol/L 3:18 PM BODY BUILDER APPRENTICE Sodium, P 138 135 - 145 03/15/2021 [facility] mmol/L 3:18 PM BODY BUILDER APPRENTICE Chloride, P 105 98 - 107 03/15/2021 [facility] mmol/L 3:18 PM BODY BUILDER APPRENTICE Bicarbonate, P 19 (L) 22 - 29 03/15/2021 [facility] mmol/L 3:18 PM BODY BUILDER APPRENTICE Anion Gap, P 14 7 - 15 03/15/2021 MKTO 3:18 PM BODY BUILDER APPRENTICE BUN (Blood Urea 8 6 - 21 03/15/2021 MKTO Nitrogen), P mg/dL 3:18 PM BODY BUILDER APPRENTICE Creatinine 0.49 (L) 0.59 - 03/15/2021 [facility] 1.04 mg/dL 3:18 PM BODY BUILDER APPRENTICE eGFR-Black/Afri >90 >=60 03/15/2021 MKTO can Cambodian mL/min/BSA 3:18 PM BODY BUILDER APPRENTICE Comment: ----ADDITIONAL INFORMATION---- Estimated GFR calculated using the 2009 CKD_EPI creatinine equation. eGFR Non-Black/ >90 >=60 mL/min/BSA 03/15/2021 3:18 PM BODY BUILDER APPRENTICE MKTO Comment: ----ADDITIONAL INFORMATION---- Estimated GFR calculated using the 2009 CKD_EPI creatinine equation. Calcium, Total, P 9.0 8.6 - 10.0 mg/dL 03/15/2021 3:18 PM BODY BUILDER APPRENTICE MKTO Glucose, P 125 70 - 140 mg/dL 03/15/2021 3:18 PM BODY BUILDER APPRENTICE M KTO Specimen Anatomical Collection Method Collection Time Receive d Time (Source) Location / / Volume Laterality Blood (Blood, 03/15/2021 2:29 PM 03/15/20 2:43 Venous) BODY BUILDER APPRENTICE PM BODY BUILDER APPRENTICE Lizet Navarro M.D. LAB BLOOD ADD-ON Performing Organization Address City/State/ZIP Code Phon e Number [facility]- [address] [place] [address] [place] [address] [address] Transfuse Red Blood Cells : (03/15/2021 1:16 PM BODY BUILDER APPRENTICE) Josep Jennings M.D. BLOOD TRANSFUSION ORDERABLES Transfuse Red Blood Cells : , 1 Units (03/15/2021 1:16 PM BODY BUILDER APPRENTICE) Josep Jennings M.D. BLOOD TRANSFUSION ORDERABLES Glucose, POCT (03/15/2021 11:57 AM BODY BUILDER APPRENTICE) P athologist Signature Glucose, POCT, 119 70 - 140 03/15/2021 MKTO B mg/dL 11:57 AM BODY BUILDER APPRENTICE Specimen Anatomical Collection Method Collection Time Receive d Time (Source) Location / / Volume Laterality Blood 03/15/2021 11:57 03/15/2021 AM BODY BUILDER APPRENTICE 12:08 PM BODY BUILDER APPRENTICE Generic Rals LAB POCT ORDERABLES-MANUAL Performing Organization Address City/[facility]/ZIP [facility] Phon e Number [address] [address] [place] [address] System in [address] Glucose, POCT (03/15/2021 6:14 AM BODY BUILDER APPRENTICE) athologist Signature Glucose, POCT, 116 70 - 140 03/15/2021 MKTO B mg/dL 6:14 AM BODY BUILDER APPRENTICE Specimen Anatomical Collection Method Collection Time Receive d Time (Source) Location / / Volume Laterality Blood 03/15/2021 6:14 AM BODY BUILDER APPRENTICE 10:34 AM BODY BUILDER APPRENTICE Generic Rals LAB POCT ORDERABLES-MANUAL Performing Organization Address City/[facility]/ZIP [facility] Phon e Number [address] [address] [place] [address] System in [address] Magnesium (03/15/2021 4:18 AM BODY BUILDER APPRENTICE) athologist Signature Magnesium, P 1.7 1.7 - 2.3 03/15/2021 MKTO mg/dL 5:00 AM BODY BUILDER APPRENTICE Specimen Anatomical Collection Method Collection Time Receive d Time (Source) Location / / Volume Laterality Blood (Blood, 03/15/2021 4:18 AM 03/15/20 4:35 Venous) BODY BUILDER APPRENTICE AM BODY BUILDER APPRENTICE Nola Huitron APRN C.N.P., M.S.N. LAB BLOOD ADD-O N Performing Organization Address City/State/ZIP Code Phon e Number [address] [address] [place] [address] (ABNORMAL) Phosphorus Inorganic (03/15/2021 4:18 AM BODY BUILDER APPRENTICE) P athologist Signature Phosphorus 2.1 (L) 2.5 - 4.5 03/15/2021 MK[facility] (Inorganic), P mg/dL 5:00 AM BODY BUILDER APPRENTICE Specimen Anatomical Collection Method Collection Time Receive d Time (Source) Location / / Volume Laterality Blood (Blood, 03/15/2021 4:18 AM 03/15/20 4:35 Venous) BODY BUILDER APPRENTICE AM BODY BUILDER APPRENTICE Nola Huitron APRN, C.N.P., M.S.N. LAB BLOOD ADD-O N Performing Organization Address [facility] Phon e Number [place] [phone] [place] [phone] [address] (ABNORMAL) Prothrombin Time (PT) (03/15/2021 4:18 AM BODY BUILDER APPRENTICE) Patholo gist Method Time Signature Prothrombin 26.3 (H) 9.4 - 12.5 03/15/2021 MKTO Time, P sec 4:58 AM BODY BUILDER APPRENTICE INR 2.3 0.9 - 1.1 03/15/2021 MKTO 4:58 AM BODY BUILDER APPRENTICE Comment: ----ADDITIONAL INFORMATION---- Standard intensity warfarin therapeutic range: 2.0 to 3.0 ?? High intensity warfarin therapeutic rang e: 2.5 to 3.5 Specimen Anatomical Collection Method Collection Time Receive d Time (Source) Location / / Volume Laterality Blood (Blood, 03/15/2021 4:18 AM 03/15/20 4:35 Venous) BODY BUILDER APPRENTICE AM BODY BUILDER APPRENTICE Florence Thomas APRN.Shanita., M.S.N. LAB BLOOD ADD-O N Performing Organization Address City/[facility] Phon e Number [facility]- [address] [place] [address] [place] [address] (ABNORMAL) Comprehensive Metabolic Panel (03/15/2021 4:18 AM BODY BUILDER APPRENTICE) Analysis Performed At Patho logist Time Signature Potassium, P 2.7 (L) 3.6 - 5.2 03/15/2021 MK[facility] mmol/L 5:00 AM BODY BUILDER APPRENTICE Sodium, P 140 135 - 145 03/15/2021 MK[facility] mmol/L 5:00 AM BODY BUILDER APPRENTICE Chloride, P 107 98 - 107 03/15/2021 [facility] mmol/L 5:00 AM BODY BUILDER APPRENTICE Bicarbonate, P 20 (L) 22 - 29 03/15/2021 MK[facility] mmol/L 5:00 AM BODY BUILDER APPRENTICE Anion Gap, P 13 7 - 15 03/15/2021 MKTO 5:00 AM BODY BUILDER APPRENTICE BUN (Blood Urea 11 6 - 21 03/15/2021 MKTO Nitrogen), P mg/dL 5:00 AM BODY BUILDER APPRENTICE Creatinine 0.55 (L) 0.59 - 03/15/2021 MK[facility] 1.04 mg/dL 5:00 AM BODY BUILDER APPRENTICE eGFR-Black/Afri >90 >=60 03/15/2021 MKTO can Cambodian mL/min/BSA 5:00 AM BODY BUILDER APPRENTICE Comment: ----ADDITIONAL INFORMATION---- Estimated GFR calculated using the 2009 CKD_EPI creatinine equation. eGFR Non-Black/ >90 >=60 mL/min/BSA 03/15/2021 5:00 AM BODY BUILDER APPRENTICE MKTO Comment: ----ADDITIONAL INFORMATION---- Estimated GFR calculated using the 2009 CKD_EPI creatinine equation. Calcium, Total, P 9.1 8.6 - 10.0 mg/dL 03/15/2021 5:00 AM BODY BUILDER APPRENTICE MKTO Glucose, P 127 70 - 140 mg/dL 03/15/2021 5:00 AM BODY BUILDER APPRENTICE M KTO Protein, Total, P 5.7 (L) 6.3 - 7.9 g/dL 03/15/2021 5:00 A M BODY BUILDER APPRENTICE MKTO Albumin, P 4.3 3.5 - 5.0 g/dL 03/15/2021 5:00 AM BODY BUILDER APPRENTICE M KTO Aspartate Aminotransferase 38 8 - 43 U/L 03/15/2021 5 :00 AM BODY BUILDER APPRENTICE MKTO (AST), P Alkaline Phosphatase, P 50 35 - 104 U/L 03/15/2021 5: 00 AM BODY BUILDER APPRENTICE MKTO Alanine Aminotransferase 9 7 - 45 U/L 03/15/2021 5:0 0 AM BODY BUILDER APPRENTICE MKTO (ALT), P Bilirubin, Total, P 5.6 (H) <=1.2 mg/dL 03/15/2021 5:00 AM BODY BUILDER APPRENTICE MKTO Specimen Anatomical Collection Method Collection Time Receive d Time (Source) Location / / Volume Laterality Blood (Blood, 03/15/2021 4:18 AM 03/15/20 4:35 Venous) BODY BUILDER APPRENTICE AM BODY BUILDER APPRENTICE Nola Huitron APRN, C.N.P., M.S.N. LAB BLOOD ADD-O N Performing Organization Address [facility] Phon e Number [facility]- [address] [place] [phone] [place] [address] (ABNORMAL) CBC without Differential (03/15/2021 4:18 AM BODY BUILDER APPRENTICE) [facility] Method Time Signature Hemoglobin 6.9 (L) 11.6 - 03/15/2021 MKTO 15.0 g/dL 5:00 AM BODY BUILDER APPRENTICE Hematocrit 20.5 (L) 35.5 - 03/15/2021 MKTO 44.9 % 5:00 AM BODY BUILDER APPRENTICE Erythrocytes 2.11 (L) 3.92 - 03/15/2021 MKTO 5.13 5:00 AM BODY BUILDER APPRENTICE x10(12)/L MCV 97.2 78.2 - 03/15/2021 MKTO 97.9 fL 5:00 AM BODY BUILDER APPRENTICE RBC Distrib Width 22.5 (H) 12.2 - 03/15/2021 MKTO 16.1 % 5:00 AM BODY BUILDER APPRENTICE Platelet Count 86 (L) 157 - 371 03/15/2021 MKTO x10(9)/L 5:00 AM BODY BUILDER APPRENTICE Leukocytes 6.3 3.4 - 9.6 03/15/2021 MKTO x10(9)/L 5:00 AM BODY BUILDER APPRENTICE Specimen Anatomical Collection Method Collection Time Receive d Time (Source) Location / / Volume Laterality Blood (Blood, 03/15/2021 4:18 AM 03/15/20 4:35 Venous) BODY BUILDER APPRENTICE AM BODY BUILDER APPRENTICE Nola Huitron APRN, C.N.P., M.S.N. LAB BLOOD ADD-O N Performing Organization Address [facility] Phon e Number [facility]- [address] [place] [address] [place] [address] System in [address] Glucose, POCT (03/14/2021 11:43 PM BODY BUILDER APPRENTICE) P athologist Signature Glucose, POCT, 122 70 - 140 03/14/2021 MKTO B mg/dL 11:43 PM BODY BUILDER APPRENTICE Specimen Anatomical Collection Method Collection Time Receive d Time (Source) Location / / Volume Laterality Blood 03/14/2021 11:43 03/15/2021 PM BODY BUILDER APPRENTICE 12:29 AM BODY BUILDER APPRENTICE Generic Rals LAB POCT ORDERABLES-MANUAL Performing Organization Address City/State/ZIP [facility] Phon e Number [facility]- [address] [place] [address] [place] [address] System in [address] Glucose, POCT (03/14/2021 6:25 PM BODY BUILDER APPRENTICE) P athologist Signature Glucose, POCT, 140 70 - 140 03/14/2021 MKTO B mg/dL 6:25 PM BODY BUILDER APPRENTICE Specimen Anatomical Collection Method Collection Time Receive d Time (Source) Location / / Volume Laterality Blood 03/14/2021 6:25 PM 7:32 BODY BUILDER APPRENTICE PM BODY BUILDER APPRENTICE Generic Rals LAB POCT ORDERABLES-MANUAL Performing Organization Address City/[facility]/ZIP [facility] Phon e Number [facility]- [address] [place] [address] [facility] [place] [address] System in [address] Glucose, POCT (03/14/2021 11:32 AM BODY BUILDER APPRENTICE) P athologist Signature Glucose, POCT, 120 70 - 140 03/14/2021 MKTO B mg/dL 11:32 AM BODY BUILDER APPRENTICE Specimen Anatomical Collection Method Collection Time Receive d Time (Source) Location / / Volume Laterality Blood 03/14/2021 11:32 03/14/2021 2:20 AM BODY BUILDER APPRENTICE PM BODY BUILDER APPRENTICE Generic Rals LAB POCT ORDERABLES-MANUAL Performing Organization Address City/State/ZIP [facility] Phon e Number [facility]- [address] [place] [address] [facility] [place] [address] System in [address] Patient Status (03/14/2021 11:00 AM BODY BUILDER APPRENTICE) P athologist Signature FIO2 0.30 0.21=AIR 03/14/2021 11:19 MKTO AM BODY BUILDER APPRENTICE Specimen Anatomical Collection Method Collection Time Receive d Time (Source) Location / / Volume Laterality Blood 03/14/2021 11:00 03/14/2021 AM BODY BUILDER APPRENTICE 11:14 AM BODY BUILDER APPRENTICE Lizet Navarro M.D. LAB BLOOD NON ADD-ON Performing Organization Address City/State/ZIP Code Phon e Number [facility]- [address] [place] [phone] [place] [address] [place] [address] [address] (ABNORMAL) Blood Gas with Coox, Arterial (03/14/2021 11:00 AM BODY BUILDER APPRENTICE) Patholo gist Method Time Signature P O2 120 (H) 83 - 108 03/14/2021 MKTO mm Hg 11:19 AM BODY BUILDER APPRENTICE P CO2 33 32 - 45 03/14/2021 MKTO mm Hg 11:19 AM BODY BUILDER APPRENTICE pH 7.42 7.35 - 03/14/2021 MKTO 7.45 pH 11:19 AM BODY BUILDER APPRENTICE Base Excess -3 (L) -2 - 3 03/14/2021 MKTO mmol/L 11:19 AM BODY BUILDER APPRENTICE HCO3 21 (L) 22 - 26 03/14/2021 MKTO mmol/L 11:19 AM BODY BUILDER APPRENTICE Hemoglobin, B 7.8 (L) 11.6 - 03/14/2021 MKTO 15.0 g/dL 11:19 AM BODY BUILDER APPRENTICE O2Hb 96.7 94.0 - 03/14/2021 MKTO 98.0 % 11:19 AM BODY BUILDER APPRENTICE COHb 1.4 <3.0 % 03/14/2021 MKTO 11:19 AM BODY BUILDER APPRENTICE MetHb 0.7 <1.5 % 03/14/2021 MKTO 11:19 AM BODY BUILDER APPRENTICE CtO2 10.8 (L) 18.0 - 03/14/2021 MKTO 21.0 vol 11:19 AM BODY BUILDER APPRENTICE % Arterial Arterial 03/14/2021 MKTO Sample Site Line 11:19 AM BODY BUILDER APPRENTICE Specimen Anatomical Collection Method Collection Time Receive d Time (Source) Location / / Volume Laterality Blood (Blood, 03/14/2021 11:00 03/14/2021 Arterial) AM BODY BUILDER APPRENTICE 11:14 AM BODY BUILDER APPRENTICE Lizet Navarro M.D. LAB BLOOD NON ADD-ON Performing Organization Address City/[facility]/ZIP Code Phon e Number [facility]- [address] [place] [phone] [place] [address] System in [place] [address] [place] [address] (ABNORMAL) Prothrombin Time (PT) (03/14/2021 9:22 AM BODY BUILDER APPRENTICE) Patholo gist Method Time Signature Prothrombin 28.5 (H) 9.4 - 12.5 03/14/2021 MKTO Time, P sec 10:13 AM BODY BUILDER APPRENTICE INR 2.5 0.9 - 1.1 03/14/2021 MKTO 10:13 AM BODY BUILDER APPRENTICE Comment: ----ADDITIONAL INFORMATION---- Standard intensity warfarin therapeutic range: 2.0 to 3.0 ?? High intensity warfarin therapeutic rang e: 2.5 to 3.5 Specimen Anatomical Collection Method Collection Time Receive d Time (Source) Location / / Volume Laterality Blood (Blood, 03/14/2021 9:22 AM 03/14/20 9:26 Venous) BODY BUILDER APPRENTICE AM BODY BUILDER APPRENTICE Kerry Naranjo APRN, M.S.N., R.N. LAB BLOOD ADD-ON Performing Organization Address City/[facility] Phon e Number [facility]- [address] [place] [phone] [place] [address] System in [address] Glucose, POCT (03/14/2021 6:28 AM BODY BUILDER APPRENTICE) P athologist Signature Glucose, POCT, 109 70 - 140 03/14/2021 MKTO B mg/dL 6:28 AM BODY BUILDER APPRENTICE Specimen Anatomical Collection Method Collection Time Receive d Time (Source) Location / / Volume Laterality Blood 03/14/2021 6:28 AM 6:51 BODY BUILDER APPRENTICE AM BODY BUILDER APPRENTICE Generic Rals LAB POCT ORDERABLES-MANUAL Performing Organization Address City/[facility]/ZIP [facility] Phon e Number [facility]- [address] [place] [address] [place] [address] (ABNORMAL) pH (03/14/2021 5:41 AM BODY BUILDER APPRENTICE) P athologist Signature pH 7.48 (H) 7.35 - 7.45 03/14/2021 MKTO pH 5:51 AM BODY BUILDER APPRENTICE Specimen Anatomical Collection Method Collection Time Receive d Time (Source) Location / / Volume Laterality Blood 03/14/2021 5:41 AM 1 5:48 BODY BUILDER APPRENTICE AM BODY BUILDER APPRENTICE Nola Huitron APRN, C.N.P., M.S.N. LAB HISTORICAL ORDERS Performing Organization Address City/[facility] Phon e Number [address] [address] [place] [address] (ABNORMAL) Calcium, Ionized (03/14/2021 5:41 AM BODY BUILDER APPRENTICE) athologist Signature Calcium, 4.61 (L) 4.65 - 03/14/2021 MKTO Ionized, B 5.30 mg/dL 5:51 AM BODY BUILDER APPRENTICE Specimen Anatomical Collection Method Collection Time Receive d Time (Source) Location / / Volume Laterality Blood 03/14/2021 5:41 AM 1 5:48 BODY BUILDER APPRENTICE AM BODY BUILDER APPRENTICE Lowell Thomas APRNN.Shanita., M.S.N. LAB BLOOD NON A DD-ON Performing Organization Address City/[facility] Phon e Number [address] [address] [place] [address] Patient Status (03/14/2021 5:41 AM BODY BUILDER APPRENTICE) P athologist Signature FIO2 0.30 0.21=AIR 03/14/2021 5:51 MKTO AM BODY BUILDER APPRENTICE Specimen Anatomical Collection Method Collection Time Receive d Time (Source) Location / / Volume Laterality Blood 03/14/2021 5:41 AM 1 5:48 BODY BUILDER APPRENTICE AM BODY BUILDER APPRENTICE Florence Thomas APRN.P., M.S.N. LAB BLOOD NON A DD-ON Performing Organization Address City/[facility]/ZIP Code Phon e Number [facility]- [address] [place] [address] [place] [address] Phosphorus Inorganic (03/14/2021 5:41 AM BODY BUILDER APPRENTICE) P athologist Signature Phosphorus 2.8 2.5 - 4.5 03/14/2021 MKTO (Inorganic), P mg/dL 6:11 AM BODY BUILDER APPRENTICE Specimen Anatomical Collection Method Collection Time Receive d Time (Source) Location / / Volume Laterality Blood (Blood, 03/14/2021 5:41 AM 03/14/20 5:48 Venous) BODY BUILDER APPRENTICE AM BODY BUILDER APPRENTICE Nola Huitron APRN, C.N.P., M.S.N. LAB BLOOD ADD-O N Performing Organization Address City/[facility]/ZIP Code Phon e Number [facility]- [address] [place] [phone] [place] [address] Magnesium (03/14/2021 5:41 AM BODY BUILDER APPRENTICE) P athologist Signature Magnesium, P 2.3 1.7 - 2.3 03/14/2021 MKTO mg/dL 6:11 AM BODY BUILDER APPRENTICE Specimen Anatomical Collection Method Collection Time Receive d Time (Source) Location / / Volume Laterality Blood (Blood, 03/14/2021 5:41 AM 03/14/20 5:48 Venous) BODY BUILDER APPRENTICE AM BODY BUILDER APPRENTICE Nola Huitron APRN, C.N.P., M.S.N. LAB BLOOD ADD-O N Performing Organization Address City/[facility]/ZIP Code Phon e Number [facility]- [address] [place] [phone] [place] [address] (ABNORMAL) Blood Gas with Coox, Arterial (03/14/2021 5:41 AM BODY BUILDER APPRENTICE) P athologist Signature P O2 146 (H) 83 - 108 03/14/2021 MKTO mm Hg 5:51 AM BODY BUILDER APPRENTICE P CO2 32 32 - 45 mm 03/14/2021 MKTO Hg 5:51 AM BODY BUILDER APPRENTICE pH 7.43 7.35 - 03/14/2021 MKTO 7.45 pH 5:51 AM BODY BUILDER APPRENTICE Base Excess -2 -2 - 3 03/14/2021 MKTO mmol/L 5:51 AM BODY BUILDER APPRENTICE HCO3 21 (L) 22 - 26 03/14/2021 MKTO mmol/L 5:51 AM BODY BUILDER APPRENTICE Hemoglobin, B 8.0 (L) 11.6 - 03/14/2021 MKTO 15.0 g/dL 5:51 AM BODY BUILDER APPRENTICE O2Hb 97.5 94.0 - 03/14/2021 MKTO 98.0 % 5:51 AM BODY BUILDER APPRENTICE COHb 1.7 <3.0 % 03/14/2021 MKTO 5:51 AM BODY BUILDER APPRENTICE MetHb 0.1 <1.5 % 03/14/2021 MKTO 5:51 AM BODY BUILDER APPRENTICE CtO2 11.3 (L) 18.0 - 03/14/2021 MKTO 21.0 vol % 5:51 AM BODY BUILDER APPRENTICE Arterial Art Line 03/14/2021 MKTO Sample Site 5:51 AM BODY BUILDER APPRENTICE Specimen Anatomical Collection Method Collection Time Receive d Time (Source) Location / / Volume Laterality Blood (Blood, 03/14/2021 5:41 AM 03/14/20 5:48 Arterial) BODY BUILDER APPRENTICE AM BODY BUILDER APPRENTICE Nola Huitron APRN C.N.P., M.S.N. LAB BLOOD NON A DD-ON Performing Organization Address City/State/ZIP Code Phon e Number [facility]- [address] [place] [address] [place] [address] (ABNORMAL) Basic Metabolic Panel (03/14/2021 5:41 AM BODY BUILDER APPRENTICE) P athologist Signature Potassium, P 3.2 (L) 3.6 - 5.2 03/14/2021 [facility] mmol/L 6:11 AM BODY BUILDER APPRENTICE Sodium, P 135 135 - 145 03/14/2021 [facility] mmol/L 6:11 AM BODY BUILDER APPRENTICE Chloride, P 103 98 - 107 03/14/2021 [facility] mmol/L 6:11 AM BODY BUILDER APPRENTICE Bicarbonate, P 19 (L) 22 - 29 03/14/2021 [facility] mmol/L 6:11 AM BODY BUILDER APPRENTICE Anion Gap, P 13 7 - 15 03/14/2021 [facility] 6:11 AM BODY BUILDER APPRENTICE BUN (Blood Urea 11 6 - 21 03/14/2021 [facility] Nitrogen), P mg/dL 6:11 AM BODY BUILDER APPRENTICE Creatinine 0.60 0.59 - 03/14/2021 [facility] 1.04 mg/dL 6:11 AM BODY BUILDER APPRENTICE eGFR-Black/Afri >90 >=60 03/14/2021 [facility] can Cambodian mL/min/BSA 6:11 AM BODY BUILDER APPRENTICE Comment: ----ADDITIONAL INFORMATION---- Estimated GFR calculated using the 2009 CKD_EPI creatinine equation. eGFR Non-Black/ >90 >=60 mL/min/BSA 03/14/2021 6:11 AM BODY BUILDER APPRENTICE MKTO Comment: ----ADDITIONAL INFORMATION---- Estimated GFR calculated using the 2009 CKD_EPI creatinine equation. Calcium, Total, P 8.9 8.6 - 10.0 mg/dL 03/14/2021 6:11 AM BODY BUILDER APPRENTICE MK[facility] Glucose, P 124 70 - 140 mg/dL 03/14/2021 6:11 AM BODY BUILDER APPRENTICE M KTO Specimen Anatomical Collection Method Collection Time Receive d Time (Source) Location / / Volume Laterality Blood (Blood, 03/14/2021 5:41 AM 03/14/20 5:48 Venous) BODY BUILDER APPRENTICE AM BODY BUILDER APPRENTICE Nola Huitron APRN C.N.P., M.S.N. LAB BLOOD ADD-O N Performing Organization Address City/State/ZIP Code Phon e Number [facility]- [address] [place] [id number] [place] [address] [place] [address] (ABNORMAL) CBC without Differential (03/14/2021 5:41 AM BODY BUILDER APPRENTICE) [facility] gist Method Time Signature Hemoglobin 7.9 (L) 11.6 - 03/14/2021 [facility] 15.0 g/dL 6:11 AM BODY BUILDER APPRENTICE Hematocrit 23.2 (L) 35.5 - 03/14/2021 [facility] 44.9 % 6:11 AM BODY BUILDER APPRENTICE Erythrocytes 2.40 (L) 3.92 - 03/14/2021 [facility] 5.13 6:11 AM BODY BUILDER APPRENTICE x10(12)/L MCV 96.7 78.2 - 03/14/2021 [facility] 97.9 fL 6:11 AM BODY BUILDER APPRENTICE RBC Distrib Width 22.8 (H) 12.2 - 03/14/2021 [facility] 16.1 % 6:11 AM BODY BUILDER APPRENTICE Platelet Count 90 (L) 157 - 371 03/14/2021 [facility] x10(9)/L 6:11 AM BODY BUILDER APPRENTICE Leukocytes 6.6 3.4 - 9.6 03/14/2021 [facility] x10(9)/L 6:11 AM BODY BUILDER APPRENTICE Specimen Anatomical Collection Method Collection Time Receive d Time (Source) Location / / Volume Laterality Blood (Blood, 03/14/2021 5:41 AM 03/14/20 5:48 Venous) BODY BUILDER APPRENTICE AM BODY BUILDER APPRENTICE Nola Huitron APRN C.N.P., M.S.N. LAB BLOOD ADD-O N Performing Organization Address City/State/ZIP Code Phon e Number [facility]- [address] [place] [address] [place] [address] (ABNORMAL) Hepatic Function Panel (03/14/2021 5:40 AM BODY BUILDER APPRENTICE) [facility] Method Time Signature Bilirubin, Total, P 6.0 (H) <=1.2 03/14/2021 [facility] mg/dL 10:49 AM BODY BUILDER APPRENTICE Bilirubin, Direct, P 2.5 (H) 0.0 - 0.3 03/14/2021 [facility] mg/dL 10:49 AM BODY BUILDER APPRENTICE Aspartate 48 (H) 8 - 43 03/14/2021 [facility] Aminotransferase U/L 10:49 AM BODY BUILDER APPRENTICE (AST), P Alanine 10 7 - 45 03/14/2021 [facility] Aminotransferase U/L 10:49 AM BODY BUILDER APPRENTICE (ALT), P Alkaline 64 35 - 104 03/14/2021 [facility] Phosphatase, P U/L 10:49 AM BODY BUILDER APPRENTICE Albumin, P 4.3 3.5 - 5.0 03/14/2021 [facility] g/dL 10:49 AM BODY BUILDER APPRENTICE Protein, Total, P 5.7 (L) 6.3 - 7.9 03/14/2021 [facility] g/dL 10:49 AM BODY BUILDER APPRENTICE Specimen Anatomical Collection Method Collection Time Receive d Time (Source) Location / / Volume Laterality Blood (Blood, 03/14/2021 5:40 AM 03/14/20 21 Venous) BODY BUILDER APPRENTICE 10:24 AM BODY BUILDER APPRENTICE Leslie Kwong M.D. LAB BLOOD ADD-ON Performing Organization Address City/State/ZIP Code Phon e Number [facility]- [address] [place] [address] [place] [address] System in [place] [address] [facility] DX Chest Portable 1 View (03/14/2021 4:33 AM BODY BUILDER APPRENTICE) Anatomical Region Laterality Modality Chest, Thoracic RST LOS, Thoracic ARZ LOS, Thoracic N/A Digital Radiography FLA LOS Specimen (Source) Anatomical Collection Method Collection Time Re ceived Time Location / / Volume Laterality 03/14/2021 7:56 AM BODY BUILDER APPRENTICE Impressions 03/14/2021 7:58 AM BODY BUILDER APPRENTICE Persistent areas of bibasilar atelectasis or infiltrate more prominent on the right. Narrative 03/14/2021 7:58 AM BODY BUILDER APPRENTICE EXAM: DX CHEST PORTABLE 1 VIEW COMPARISON: [...] the right. Ivan PERALES DIAGNOSTIC IMAGING PROCE PERCY Glucose, POCT (03/14/2021 12:06 AM BODY BUILDER APPRENTICE) athologist Signature Glucose, POCT, 116 70 - 140 03/14/2021 [facility] B mg/dL 12:06 AM BODY BUILDER APPRENTICE Specimen Anatomical Collection Method Collection Time Receive d Time (Source) Location / / Volume Laterality Blood 03/14/2021 12:06 03/14/2021 AM BODY BUILDER APPRENTICE 12:23 AM BODY BUILDER APPRENTICE Generic Rals LAB POCT ORDERABLES-MANUAL Performing Organization Address City/State/ZIP [facility] Phon e Number [facility]- [address] [place] [address] [place] [address] [address] (ABNORMAL) Hemoglobin (03/13/2021 6:29 PM BODY BUILDER APPRENTICE) athologist Signature Hemoglobin 8.0 (L) 11.6 - 15.0 03/13/2021 [facility] g/dL 6:45 PM BODY BUILDER APPRENTICE Specimen Anatomical Collection Method Collection Time Receive d Time (Source) Location / / Volume Laterality Blood (Blood, 03/13/2021 6:29 PM 03/13/20 6:40 Venous) BODY BUILDER APPRENTICE PM BODY BUILDER APPRENTICE Tariq Santillan LAB BLOOD ADD-ON Performing Organization Address City/[facility]/ZIP Code Phon e Number [facility]- [address] [place] [address] [place] [address] Glucose, POCT (03/13/2021 6:16 PM BODY BUILDER APPRENTICE) athologist Signature Glucose, POCT, 112 70 - 140 03/13/2021 [facility] B mg/dL 6:16 PM BODY BUILDER APPRENTICE Specimen Anatomical Collection Method Collection Time Receive d Time (Source) Location / / Volume Laterality Blood 03/13/2021 6:16 PM BODY BUILDER APPRENTICE 11:28 PM BODY BUILDER APPRENTICE Generic Rals LAB POCT ORDERABLES-MANUAL Performing Organization Address City/State/ZIP Code Phon e Number [facility]- [address] [place] [address] [place] [address] [address] (ABNORMAL) Hemoglobin (03/13/2021 4:28 PM BODY BUILDER APPRENTICE) athologist Signature Hemoglobin 8.0 (L) 11.6 - 15.0 03/13/2021 [facility] g/dL 4:39 PM BODY BUILDER APPRENTICE Specimen Anatomical Collection Method Collection Time Receive d Time (Source) Location / / Volume Laterality Blood (Blood, 03/13/2021 4:28 PM 03/13/20 4:35 Arterial) BODY BUILDER APPRENTICE PM BODY BUILDER APPRENTICE Tariq Johnson.Maritza.B.S. LAB BLOOD ADD-ON Performing Organization Address City/[facility] Phon e Number [address] [address] [place] [address] Transfuse Red Blood Cells : (03/13/2021 12:13 PM BODY BUILDER APPRENTICE) Tariq Marcano M.B.B.S. BLOOD TRANSFUSION ORDERABLES Transfuse Red Blood Cells : , 1 Units (03/13/2021 12:13 PM BODY BUILDER APPRENTICE) Tariq Marcano M.B.B.S. BLOOD TRANSFUSION ORDERABLES Glucose, POCT (03/13/2021 11:46 AM BODY BUILDER APPRENTICE) athologist [facility] Glucose, POCT, 130 70 - 140 03/13/2021 [facility] B mg/dL 11:46 AM BODY BUILDER APPRENTICE Specimen Anatomical Collection Method Collection Time Receive d Time (Source) Location / / Volume Laterality Blood 03/13/2021 11:46 03/13/2021 AM BODY BUILDER APPRENTICE 11:54 AM BODY BUILDER APPRENTICE Generic Rals LAB POCT ORDERABLES-MANUAL Performing Organization Address City/[facility] Phon e Number [address] [address] [place] [address] (ABNORMAL) Ferritin (03/13/2021 8:28 AM BODY BUILDER APPRENTICE) athologist Signature Ferritin, S 801 (H) 6 - 175 03/13/2021 [facility] mcg/L 10:15 AM BODY BUILDER APPRENTICE Comment: Biotin has been identified by the manufa cturer as a potential interfering substance. ??Higher concentr [...] (Blood, 03/13/2021 8:28 AM 03/13/20 8:32 Venous) BODY BUILDER APPRENTICE AM BODY BUILDER APPRENTICE Tariq CheryB.S. LAB BLOOD ADD-ON Performing Organization Address [facility] Phon e Number [facility]- [address] [place] [address] [place] [address] (ABNORMAL) Folate (03/13/2021 8:28 AM BODY BUILDER APPRENTICE) P athologist Signature Folate, S 2.8 (L) >=4.0 mcg/L 03/13/2021 [facility] 2:38 PM BODY BUILDER APPRENTICE Comment: Biotin has been identified by the [...] (Blood, 03/13/2021 8:28 AM 03/13/20 8:32 Venous) BODY BUILDER APPRENTICE AM BODY BUILDER APPRENTICE Tariq CheryB.S. LAB BLOOD ADD-ON Performing Organization Address City/[facility] Phon e Number [facility]- [address] [place] [address] [place] [address] System in [address] Vitamin B12 Assay (03/13/2021 8:28 AM BODY BUILDER APPRENTICE) P athologist Signature Vitamin B12 690 216 - 1247 03/13/2021 [facility] Assay, S ng/L 4:13 PM BODY BUILDER APPRENTICE Comment: Biotin has been identified by the chantelle lockett as a potential interfering substance. ??Higher concentr ations of biotin may be found in multivitamins, hair/nail supple ments, and workout supplements. ??If the result does not ma [facility] clinical observations, repeat testing after patient refrains fr om the use of supplements for at least 12 hours. Specimen Anatomical Collection Method Collection Time Receive d Time (Source) Location / / Volume Laterality Blood (Blood, 03/13/2021 8:28 AM 03/13/20 8:32 Venous) BODY BUILDER APPRENTICE AM BODY BUILDER APPRENTICE Tariq Santoyo.S. LAB BLOOD ADD-ON Performing Organization Address City/[facility] Phon e Number [address] [address] [place] [address] System in [address] (ABNORMAL) Iron and Total Iron-Binding Capacity (03/13/2021 8:28 AM BODY BUILDER APPRENTICE) athologist Signature Iron 77 35 - 145 03/13/2021 [facility] mcg/dL 10:15 AM BODY BUILDER APPRENTICE Total Iron 68 (L) 250 - 400 03/13/2021 [facility] Binding mcg/dL 10:15 AM BODY BUILDER APPRENTICE Capacity Percent >90 (H) 14 - 50 % 03/13/2021 [facility] Saturation 10:15 AM BODY BUILDER APPRENTICE Specimen Anatomical Collection Method Collection Time Receive d Time (Source) Location / / Volume Laterality Blood (Blood, 03/13/2021 8:28 AM 03/13/20 8:32 Venous) BODY BUILDER APPRENTICE AM BODY BUILDER APPRENTICE Tariq CheryB.S. LAB BLOOD ADD-ON Performing Organization Address City/State/ZIP Code Phon e Number [address] [address] [place] [address] Patient Status (03/13/2021 5:37 AM BODY BUILDER APPRENTICE) P athologist Signature FIO2 0.30 0.21=AIR 03/13/2021 5:56 MK[facility] AM BODY BUILDER APPRENTICE Specimen Anatomical Collection Method Collection Time Receive d Time (Source) Location / / Volume Laterality Blood 03/13/2021 5:37 AM 5:50 BODY BUILDER APPRENTICE AM BODY BUILDER APPRENTICE Ivan Lazo D.O. LAB BLOOD NON ADD-ON Performing Organization Address City/[facility]/ZIP Code Phon e Number [facility]- [address] [place] [address] [place] [address] (ABNORMAL) Blood Gas with Coox, Arterial (03/13/2021 5:37 AM BODY BUILDER APPRENTICE) P athologist Signature P O2 141 (H) 83 - 108 03/13/2021 [facility] mm Hg 5:56 AM BODY BUILDER APPRENTICE P CO2 30 (L) 32 - 45 mm 03/13/2021 [facility] Hg 5:56 AM BODY BUILDER APPRENTICE pH 7.46 (H) 7.35 - 03/13/2021 [facility] 7.45 pH 5:56 AM BODY BUILDER APPRENTICE Base Excess -2 -2 - 3 03/13/2021 [facility] mmol/L 5:56 AM BODY BUILDER APPRENTICE HCO3 21 (L) 22 - 26 03/13/2021 [facility] mmol/L 5:56 AM BODY BUILDER APPRENTICE Hemoglobin, B 7.2 (L) 11.6 - 03/13/2021 [facility] 15.0 g/dL 5:56 AM BODY BUILDER APPRENTICE O2Hb 97.9 94.0 - 03/13/2021 [facility] 98.0 % 5:56 AM BODY BUILDER APPRENTICE COHb 1.5 <3.0 % 03/13/2021 MK[facility] 5:56 AM BODY BUILDER APPRENTICE MetHb 0.0 <1.5 % 03/13/2021 [facility] 5:56 AM BODY BUILDER APPRENTICE CtO2 10.3 (L) 18.0 - 03/13/2021 [facility] 21.0 vol % 5:56 AM BODY BUILDER APPRENTICE Arterial Art Line 03/13/2021 [facility] Sample Site 5:56 AM BODY BUILDER APPRENTICE Specimen Anatomical Collection Method Collection Time Receive d Time (Source) Location / / Volume Laterality Blood (Blood, 03/13/2021 5:37 AM 03/13/20 5:50 Arterial) BODY BUILDER APPRENTICE AM BODY BUILDER APPRENTICE Ivan Lazo D.O. LAB BLOOD NON ADD-ON Performing Organization Address City/State/ZIP Code Phon e Number [facility]- [address] [place] [address] [place] [address] [address] Phosphorus Inorganic (03/13/2021 5:37 AM BODY BUILDER APPRENTICE) P athologist Signature Phosphorus 3.1 2.5 - 4.5 03/13/2021 [facility] (Inorganic), P mg/dL 6:17 AM BODY BUILDER APPRENTICE Specimen Anatomical Collection Method Collection Time Receive d Time (Source) Location / / Volume Laterality Blood (Blood, 03/13/2021 5:37 AM 03/13/20 5:50 Venous) BODY BUILDER APPRENTICE AM BODY BUILDER APPRENTICE Barrera Vargas M.D. LAB BLOOD ADD-ON Performing Organization Address City/State/[facility] Phon e Number [address] [address] [place] [address] (ABNORMAL) Magnesium (03/13/2021 5:37 AM BODY BUILDER APPRENTICE) athologist Signature Magnesium, P 2.6 (H) 1.7 - 2.3 03/13/2021 [facility] mg/dL 6:17 AM BODY BUILDER APPRENTICE Specimen Anatomical Collection Method Collection Time Receive d Time (Source) Location / / Volume Laterality Blood (Blood, 03/13/2021 5:37 AM 03/13/20 5:50 Venous) BODY BUILDER APPRENTICE AM BODY BUILDER APPRENTICE Barrera Vargas M.D. LAB BLOOD ADD-ON Performing Organization Address City/State/[facility] Code Phon e Number [facility]- [address] [place] [address] [facility] [place] [address] [address] Triglycerides (03/13/2021 5:37 AM BODY BUILDER APPRENTICE) P athologist Signature Triglycerides 127 mg/dL 03/13/2021 [facility] 6:17 AM BODY BUILDER APPRENTICE Comment: ----REFERENCE VALUE---- Normal: <150 Borderline high: 150-199 High: 200-499 Very high: > or =500 Specimen Anatomical Collection Method Collection Time Receive d Time (Source) Location / / Volume Laterality Blood (Blood, 03/13/2021 5:37 AM 03/13/20 5:50 Venous) BODY BUILDER APPRENTICE AM BODY BUILDER APPRENTICE Barrera Vargas M.D. LAB BLOOD ADD-ON Performing Organization Address City/State/ZIP Code Phon e Number [facility]- [address] [place] [address] [place] [address] System in [place] [address] [facility] (ABNORMAL) Comprehensive Metabolic Panel (03/13/2021 5:37 AM BODY BUILDER APPRENTICE) Analysis Performed At Patho logist Time Signature Potassium, P 3.9 3.6 - 5.2 03/13/2021 [facility] mmol/L 6:17 AM BODY BUILDER APPRENTICE Sodium, P 135 135 - 145 03/13/2021 [facility] mmol/L 6:17 AM BODY BUILDER APPRENTICE Chloride, P 103 98 - 107 03/13/2021 [facility] mmol/L 6:17 AM BODY BUILDER APPRENTICE Bicarbonate, P 20 (L) 22 - 29 03/13/2021 [facility] mmol/L 6:17 AM BODY BUILDER APPRENTICE Anion Gap, P 12 7 - 15 03/13/2021 [facility] 6:17 AM BODY BUILDER APPRENTICE BUN (Blood Urea 8 6 - 21 03/13/2021 [facility] Nitrogen), P mg/dL 6:17 AM BODY BUILDER APPRENTICE Creatinine 0.56 (L) 0.59 - 03/13/2021 [facility] 1.04 mg/dL 6:17 AM BODY BUILDER APPRENTICE eGFR-Black/Afri >90 >=60 03/13/2021 [facility] can Cambodian mL/min/BSA 6:17 AM BODY BUILDER APPRENTICE Comment: ----ADDITIONAL INFORMATION---- Estimated GFR calculated using the 2009 CKD_EPI creatinine equation. eGFR Non-Black/ >90 >=60 mL/min/BSA 03/13/2021 6:17 AM BODY BUILDER APPRENTICE MKTO Comment: ----ADDITIONAL INFORMATION---- Estimated GFR calculated using the 2009 CKD_EPI creatinine equation. Calcium, Total, P 9.0 8.6 - 10.0 mg/dL 03/13/2021 6:17 AM BODY BUILDER APPRENTICE MK[facility] Glucose, P 115 70 - 140 mg/dL 03/13/2021 6:17 AM BODY BUILDER APPRENTICE M KTO Protein, Total, P 5.7 (L) 6.3 - 7.9 g/dL 03/13/2021 6:17 A M BODY BUILDER APPRENTICE MKTO Albumin, P 3.9 3.5 - 5.0 g/dL 03/13/2021 6:17 AM BODY BUILDER APPRENTICE M KTO Aspartate Aminotransferase 64 (H) 8 - 43 U/L 03/13/2021 6 :17 AM BODY BUILDER APPRENTICE [facility] (AST), P Alkaline Phosphatase, P 90 35 - 104 U/L 03/13/2021 6: 17 AM BODY BUILDER APPRENTICE MKTO Alanine Aminotransferase 14 7 - 45 U/L 03/13/2021 6:1 7 AM BODY BUILDER APPRENTICE [facility] (ALT), P Bilirubin, Total, P 6.1 (H) <=1.2 mg/dL 03/13/2021 6:17 AM BODY BUILDER APPRENTICE MKTO Specimen Anatomical Collection Method Collection Time Receive d Time (Source) Location / / Volume Laterality Blood (Blood, 03/13/2021 5:37 AM 03/13/20 5:50 Venous) BODY BUILDER APPRENTICE AM BODY BUILDER APPRENTICE Barrera Vargas M.D. LAB BLOOD ADD-ON Performing Organization Address City/State/ZIP Code Phon e Number [facility]- [address] [place] [address] [place] [address] (ABNORMAL) CBC with Differential, Blood (03/13/2021 5:37 AM BODY BUILDER APPRENTICE) [facility] gist Method Time Signature Hemoglobin 7.1 (L) 11.6 - 03/13/2021 [facility] 15.0 g/dL 7:27 AM BODY BUILDER APPRENTICE Hematocrit 21.0 (L) 35.5 - 03/13/2021 [facility] 44.9 % 7:27 AM BODY BUILDER APPRENTICE Erythrocytes 2.11 (L) 3.92 - 03/13/2021 MK[facility] 5.13 7:27 AM BODY BUILDER APPRENTICE x10(12)/L MCV 99.5 (H) 78.2 - 03/13/2021 MK[facility] 97.9 fL 7:27 AM BODY BUILDER APPRENTICE RBC Distrib Width 20.1 (H) 12.2 - 03/13/2021 MK[facility] 16.1 % 7:27 AM BODY BUILDER APPRENTICE Platelet Count 101 (L) 157 - 371 03/13/2021 [facility] x10(9)/L 7:27 AM BODY BUILDER APPRENTICE Leukocytes 8.4 3.4 - 9.6 03/13/2021 MK[facility] x10(9)/L 7:27 AM BODY BUILDER APPRENTICE Neutrophils 6.72 (H) 1.56 - 03/13/2021 MK[facility] 6.45 7:27 AM BODY BUILDER APPRENTICE x10(9)/L Lymphocytes 0.85 (L) 0.95 - 03/13/2021 MK[facility] 3.07 7:27 AM BODY BUILDER APPRENTICE x10(9)/L Monocytes 0.86 (H) 0.26 - 03/13/2021 MK[facility] 0.81 7:27 AM BODY BUILDER APPRENTICE x10(9)/L Eosinophils <0.03 0.03 - 03/13/2021 MKTO 0.48 7:27 AM BODY BUILDER APPRENTICE x10(9)/L Basophils <0.03 0.01 - 03/13/2021 MK[facility] 0.08 7:27 AM BODY BUILDER APPRENTICE x10(9)/L Specimen Anatomical Collection Method Collection Time Receive d Time (Source) Location / / Volume Laterality Blood (Blood, 03/13/2021 5:37 AM 03/13/20 5:50 Venous) BODY BUILDER APPRENTICE AM BODY BUILDER APPRENTICE Barrera Vargas M.D. LAB BLOOD ADD-ON Performing Organization Address City/[facility] Phon e Number [address] [address] [place] [address] [address] (ABNORMAL) Ammonia (03/13/2021 5:37 AM BODY BUILDER APPRENTICE) P athologist Signature Ammonia, P 110 (H) <=51 03/13/2021 MKTO mcmol/L 6:16 AM BODY BUILDER APPRENTICE Specimen Anatomical Collection Method Collection Time Receive d Time (Source) Location / / Volume Laterality Blood (Blood, 03/13/2021 5:37 AM 03/13/20 5:49 Venous) BODY BUILDER APPRENTICE AM BODY BUILDER APPRENTICE Barrera Vargas M.D. LAB BLOOD NON ADD-ON Performing Organization Address City/[facility] Phon e Number [address] [address] [place] [address] DX Chest Portable 1 View (03/13/2021 4:32 AM BODY BUILDER APPRENTICE) Anatomical Region Laterality Modality Chest, Thoracic RST LOS, Thoracic ARZ LOS, Thoracic N/A Digital Radiography FLA LOS Specimen (Source) Anatomical Collection Method Collection Time Re ceived Time Location / / Volume Laterality 03/13/2021 8:07 AM BODY BUILDER APPRENTICE Impressions 03/13/2021 8:08 AM BODY BUILDER APPRENTICE Persistent right basilar infiltrate or a telectasis. Narrative 03/13/2021 8:08 AM BODY BUILDER APPRENTICE EXAM: DX CHEST PORTABLE 1 VIEW COMPARISON: [...] right basilar infiltrate or a telectasis. Ivan PERALES DIAGNOSTIC IMAGING PROCE DURKALPESH (ABNORMAL) Basic Metabolic Panel (03/13/2021 1:20 AM BODY BUILDER APPRENTICE) Analysis Performed At Patho logist Time Signature Potassium, P 2.9 (L) 3.6 - 5.2 03/13/2021 [facility] mmol/L 1:58 AM BODY BUILDER APPRENTICE Sodium, P 134 (L) 135 - 145 03/13/2021 [facility] mmol/L 1:58 AM BODY BUILDER APPRENTICE Chloride, P 99 98 - 107 03/13/2021 [facility] mmol/L 1:58 AM BODY BUILDER APPRENTICE Bicarbonate, P 20 (L) 22 - 29 03/13/2021 [facility] mmol/L 1:58 AM BODY BUILDER APPRENTICE Anion Gap, P 15 7 - 15 03/13/2021 MK[facility] 1:58 AM BODY BUILDER APPRENTICE BUN (Blood Urea 8 6 - 21 03/13/2021 MKTO Nitrogen), P mg/dL 1:58 AM BODY BUILDER APPRENTICE Creatinine 0.56 (L) 0.59 - 03/13/2021 [facility] 1.04 mg/dL 1:58 AM BODY BUILDER APPRENTICE eGFR-Black/Afri >90 >=60 03/13/2021 MKTO can Cambodian mL/min/BSA 1:58 AM BODY BUILDER APPRENTICE Comment: ----ADDITIONAL INFORMATION---- Estimated GFR calculated using the 2009 CKD_EPI creatinine equation. eGFR Non-Black/ >90 >=60 mL/min/BSA 03/13/2021 1:58 AM BODY BUILDER APPRENTICE MKTO Comment: ----ADDITIONAL INFORMATION---- Estimated GFR calculated using the 2009 CKD_EPI creatinine equation. Calcium, Total, P 8.9 8.6 - 10.0 mg/dL 03/13/2021 1:58 AM BODY BUILDER APPRENTICE MK[facility] Glucose, P 120 70 - 140 mg/dL 03/13/2021 1:58 AM BODY BUILDER APPRENTICE M KTO Specimen Anatomical Collection Method Collection Time Receive d Time (Source) Location / / Volume Laterality Blood (Blood, 03/13/2021 1:20 AM 03/13/20 1:23 Venous) BODY BUILDER APPRENTICE AM BODY BUILDER APPRENTICE Ivan Lazo D.O. LAB BLOOD ADD-ON Performing Organization Address City/[facility] Phon e Number [address] [address] [place] [address] (ABNORMAL) Hemoglobin (03/13/2021 12:11 AM BODY BUILDER APPRENTICE) P athologist Signature Hemoglobin 7.4 (L) 11.6 - 15.0 03/13/2021 [facility] g/dL 12:18 AM BODY BUILDER APPRENTICE Specimen Anatomical Collection Method Collection Time Receive d Time (Source) Location / / Volume Laterality Blood (Blood, 03/13/2021 12:11 03/13/2021 Venous) AM BODY BUILDER APPRENTICE 12:15 AM BODY BUILDER APPRENTICE Barrera Vargas M.D. LAB BLOOD ADD-ON Performing Organization Address City/[facility] Phon e Number [address] [address] [facility] [place] [address] [address] Glucose, POCT (03/12/2021 11:44 PM BODY BUILDER APPRENTICE) P athologist Signature Glucose, POCT, 120 70 - 140 03/12/2021 MK[facility] B mg/dL 11:44 PM BODY BUILDER APPRENTICE Specimen Anatomical Collection Method Collection Time Receive d Time (Source) Location / / Volume Laterality Blood 03/12/2021 11:44 03/12/2021 PM BODY BUILDER APPRENTICE 11:51 PM BODY BUILDER APPRENTICE Generic Rals LAB POCT ORDERABLES-MANUAL Performing Organization Address City/[facility]/ZIP Code Phon e Number [facility] [place] [address] [place] [address] System in [place] [address] [place] [address] Ethyl Glucuronide Screen with Reflex, Urine (03/12/2021 11:12 PM BODY BUILDER APPRENTICE) [facility] gist Method Time Signature Ethyl Negative Cutoff: 03/14/[address] [facility] Glucuronide Scrn 500 ng/mL 9:46 AM BODY BUILDER APPRENTICE w/Reflex, U Comment: ----ADDITIONAL INFORMATION---- This test was developed and its performa nce characteristics determined by [facility] in a manner consistent with CLIA requirements. This test has not been cleared or approved by the U.[place]. [place] d and Drug Administration. Specimen Anatomical Collection Method Collection Time Receive d Time (Source) Location / / Volume Laterality Urine (Urine, 03/12/2021 11:12 03/14/2021 8:00 Clean Catch) PM BODY BUILDER APPRENTICE AM BODY BUILDER APPRENTICE Sera Morgan P.A.-C. LAB URINE ORDERABLES Performing Organization Address City/State/ZIP Code Phon e Number [facility] [address] [place], [place] [address] SUPPORT CENTER [facility] [place] [address] Laboratory Medicine and Pathology [address] [place] INTUB W ETT, LDA ANE ENDOTRACHEAL AIRWAY (03/12/2021 10:30 PM BODY BUILDER APPRENTICE) Narrative Barrera To M.D. - 2020 10:30 PM BODY BUILDER APPRENTICE Barrera oT M.D. ? 03/12/2021 ??6:07 PM Intubation Date/Time: 03/12/2021 10:30 PM Performed by: Barrera To M.D. Authorized by: Barrera To M.D. Patient location during procedure: ICU / PCU PROCEDURE DETAILS: Mask difficulty assessment: easy mask Final airway type: video laryngoscope Laryngeal Manipulation: no ?? Final best view of glottic structures - Cormack/Lehane Score: grade 2A ETT location: oral VL device: glide scope Tiller scope blade size: 3 Adult tube size: [...] ORDERABLES (ABNORMAL) Glucose, POCT (03/12/2021 6:11 PM BODY BUILDER APPRENTICE) P athologist Signature Glucose, POCT, 170 (H) 70 - 140 03/12/2021 MKTO B mg/dL 6:11 PM BODY BUILDER APPRENTICE Specimen Anatomical Collection Method Collection Time Receive d Time (Source) Location / / Volume Laterality Blood 03/12/2021 6:11 PM 6:23 BODY BUILDER APPRENTICE PM BODY BUILDER APPRENTICE Generic Rals LAB POCT ORDERABLES-MANUAL Performing Organization Address City/State/ZIP Code Phon e Number [facility] [place] [address] [place] [address] System in [place] [address] [facility] PARACENTESIS ABD WO IMG (03/12/2021 6:02 PM BODY BUILDER APPRENTICE) Narrative Barrera To M.D. - 2020 6:02 PM BODY BUILDER APPRENTICE Barrera To M.D. ? 03/12/2021 ??6:07 PM [...] PROCEDURE/MINOR SURGICAL ORDERABLES THORACENTESIS (03/12/2021 6:02 PM BODY BUILDER APPRENTICE) Narrative Barrera To M.D. - 2020 6:02 PM BODY BUILDER APPRENTICE Barrera To M.D. ? 03/12/2021 ??6:07 PM Thoracentesis Date/Time: 03/12/2021 6:02 PM Performed by: Barrera To M.D. Authorized by: Barrera To M.D. PROCEDURE DETAILS Location: right mid-axillary Intercostal space: 3rd Puncture method: [id number] cathete r Number of attempts: 1 Drainage [...] lidocaine Barrera Vargas M.D. PROCEDURE/MINOR SURGICAL ORDERABLES [place] INS NON-ALEN CVC >5YR, [place] US GUIDE VASC ACCESS, LDA ANE CENTRAL LINE TRIPLE LUMEN, MC ANE CENTRAL LINE GENERIC PERFORMABLE (03/12/2021 6:02 PM BODY BUILDER APPRENTICE) Narrative Barrera To M.D. - 2020 6:02 PM BODY BUILDER APPRENTICE Barrera To M.D. ? 03/12/2021 ??6:07 PM [...] Red Blood Cells : (03/12/2021 5:39 PM BODY BUILDER APPRENTICE) Barrera Vargas M.D. BLOOD TRANSFUSION ORDERA BLES Transfuse Red Blood Cells : , 1 Units (03/12/2021 5:39 PM BODY BUILDER APPRENTICE) Barrera Vargas M.D. BLOOD TRANSFUSION ORDERA BLES (ABNORMAL) Hemoglobin (03/12/2021 5:35 PM BODY BUILDER APPRENTICE) athologist Signature Hemoglobin 7.6 (L) 11.6 - 15.0 03/12/2021 MKTO g/dL 5:50 PM BODY BUILDER APPRENTICE Specimen Anatomical Collection Method Collection Time Receive d Time (Source) Location / / Volume Laterality Blood (Blood, 03/12/2021 5:35 PM 03/12/20 5:46 Venous) BODY BUILDER APPRENTICE PM BODY BUILDER APPRENTICE Authorizing Provider Result Woodrow Vargas M.D. LAB BLOOD ADD-ON Performing Organization Address City/State/ZIP Code Phon e Number [facility]- [address] [place] [phone] [place] [address] [place] [address] Calcium, Ionized (03/12/2021 5:35 PM BODY BUILDER APPRENTICE) P athologist Signature Calcium, 4.70 4.65 - 5.30 03/12/2021 MKTO Ionized, B mg/dL 5:49 PM BODY BUILDER APPRENTICE Specimen Anatomical Collection Method Collection Time Receive d Time (Source) Location / / Volume Laterality Blood 03/12/2021 5:35 PM 5:46 BODY BUILDER APPRENTICE PM BODY BUILDER APPRENTICE Authorizing Provider Result Woodrow Vargas M.D. LAB BLOOD NON ADD-ON Performing Organization Address City/State/ZIP Code Phon e Number [address] [address] [place] [address] (ABNORMAL) pH (03/12/2021 5:35 PM BODY BUILDER APPRENTICE) P athologist Signature pH 7.46 (H) 7.35 - 7.45 03/12/2021 MKTO pH 5:49 PM BODY BUILDER APPRENTICE Specimen Anatomical Collection Method Collection Time Receive d Time (Source) Location / / Volume Laterality Blood 03/12/2021 5:35 PM 5:46 BODY BUILDER APPRENTICE PM BODY BUILDER APPRENTICE Barrera Vargas M.D. LAB HISTORICAL ORDERS Performing Organization Address City/[facility]/ZIP Code Phon e Number [address] [address] [place] [address] [address] (ABNORMAL) Ammonia (03/12/2021 5:35 PM BODY BUILDER APPRENTICE) P athologist Signature Ammonia, P 80 (H) <=51 03/12/2021 MKTO mcmol/L 6:06 PM BODY BUILDER APPRENTICE Specimen Anatomical Collection Method Collection Time Receive d Time (Source) Location / / Volume Laterality Blood (Blood, 03/12/2021 5:35 PM 03/12/20 5:46 Venous) BODY BUILDER APPRENTICE PM BODY BUILDER APPRENTICE Barrera Vargas M.D. LAB BLOOD NON ADD-ON Performing Organization Address City/State/ZIP Code Phon e Number [address] [address] [place] [address] (ABNORMAL) Phosphorus Inorganic (03/12/2021 5:35 PM BODY BUILDER APPRENTICE) P athologist Signature Phosphorus 4.6 (H) 2.5 - 4.5 03/12/2021 MKTO (Inorganic), P mg/dL 6:07 PM BODY BUILDER APPRENTICE Specimen Anatomical Collection Method Collection Time Receive d Time (Source) Location / / Volume Laterality Blood (Blood, 03/12/2021 5:35 PM 03/12/20 5:46 Venous) BODY BUILDER APPRENTICE PM BODY BUILDER APPRENTICE Barrera Vargas M.D. LAB BLOOD ADD-ON Performing Organization Address City/State/ZIP Code Phon e Number [address] [address] [place] [address] (ABNORMAL) Magnesium (03/12/2021 5:35 PM BODY BUILDER APPRENTICE) P athologist Signature Magnesium, P 3.7 (H) 1.7 - 2.3 03/12/2021 MKTO mg/dL 6:07 PM BODY BUILDER APPRENTICE Specimen Anatomical Collection Method Collection Time Receive d Time (Source) Location / / Volume Laterality Blood (Blood, 03/12/2021 5:35 PM 03/12/20 5:46 Venous) BODY BUILDER APPRENTICE PM BODY BUILDER APPRENTICE Barrera Vargas M.D. LAB BLOOD ADD-ON Performing Organization Address City/[facility] Code Phon e Number [address] [address] [place] [address] (ABNORMAL) Comprehensive Metabolic Panel (03/12/2021 5:35 PM BODY BUILDER APPRENTICE) Analysis Performed At Patho logist Time Signature Potassium, P 2.5 (CL) 3.6 - 5.2 03/12/2021 MKTO mmol/L 6:08 PM BODY BUILDER APPRENTICE Sodium, P 133 (L) 135 - 145 03/12/2021 MKTO mmol/L 6:07 PM BODY BUILDER APPRENTICE Chloride, P 98 98 - 107 03/12/2021 MKTO mmol/L 6:07 PM BODY BUILDER APPRENTICE Bicarbonate, P 20 (L) 22 - 29 03/12/2021 MKTO mmol/L 6:07 PM BODY BUILDER APPRENTICE Anion Gap, P 15 7 - 15 03/12/2021 MKTO 6:07 PM BODY BUILDER APPRENTICE BUN (Blood Urea 9 6 - 21 03/12/2021 MKTO Nitrogen), P mg/dL 6:07 PM BODY BUILDER APPRENTICE Creatinine 0.57 (L) 0.59 - 03/12/2021 MKTO 1.04 mg/dL 6:07 PM BODY BUILDER APPRENTICE eGFR-Black/Afri >90 >=60 03/12/2021 MKTO can Cambodian mL/min/BSA 6:07 PM BODY BUILDER APPRENTICE Comment: ----ADDITIONAL INFORMATION---- Estimated GFR calculated using the 2009 CKD_EPI creatinine equation. eGFR Non-Black/ >90 >=60 mL/min/BSA 03/12/2021 6:07 PM BODY BUILDER APPRENTICE MKTO Comment: ----ADDITIONAL INFORMATION---- Estimated GFR calculated using the 2009 CKD_EPI creatinine equation. Calcium, Total, P 8.7 8.6 - 10.0 mg/dL 03/12/2021 6:07 PM BODY BUILDER APPRENTICE MKTO Glucose, P 190 (H) 70 - 140 mg/dL 03/12/2021 6:07 PM BODY BUILDER APPRENTICE M KTO Protein, Total, P 5.5 (L) 6.3 - 7.9 g/dL 03/12/2021 6:07 P M BODY BUILDER APPRENTICE MKTO Albumin, P 3.4 (L) 3.5 - 5.0 g/dL 03/12/2021 6:07 PM BODY BUILDER APPRENTICE M KTO Aspartate Aminotransferase 66 (H) 8 - 43 U/L 03/12/2021 6 :07 PM BODY BUILDER APPRENTICE MKTO (AST), P Alkaline Phosphatase, P 97 35 - 104 U/L 03/12/2021 6: 07 PM BODY BUILDER APPRENTICE MKTO Alanine Aminotransferase 16 7 - 45 U/L 03/12/2021 6:0 7 PM BODY BUILDER APPRENTICE MKTO (ALT), P Bilirubin, Total, P 6.0 (H) <=1.2 mg/dL 03/12/2021 6:07 PM BODY BUILDER APPRENTICE MKTO Specimen Anatomical Collection Method Collection Time Receive d Time (Source) Location / / Volume Laterality Blood (Blood, 03/12/2021 5:35 PM 03/12/20 5:46 Venous) BODY BUILDER APPRENTICE PM BODY BUILDER APPRENTICE Barrera Vargas M.D. LAB BLOOD ADD-ON Performing Organization Address City/State/ZIP Code Phon e Number [facility]- [address] [place] [phone] [place] [address] [address] Bacterial Culture, Aerobic + Susc (03/12/2021 3:46 PM BODY BUILDER APPRENTICE) [facility] Method Time Signature Bacterial No growth 03/17/2021 MKTO Culture, after 5 7:38 AM BODY BUILDER APPRENTICE Aerobic + Susc days of incubation. Specimen Anatomical Collection Method Collection Time Receive d Time (Source) Location / / Volume Laterality Fluid 03/12/2021 3:46 PM 1 3:46 (Peritoneal BODY BUILDER APPRENTICE PM BODY BUILDER APPRENTICE Fluid) Comment: Specimen Source Site: Fluid Sera Morgan P.A.-C. LAB MICROBIOLOGY - GENERAL O RDERABLES Performing Organization Address City/[facility]/ZIP Code Phon e Number [facility]- [address] [place] [phone] [place] [address] System in [place] [address] [place] [address] Bacterial Culture, Anaerobic + Susc (03/12/2021 3:46 PM BODY BUILDER APPRENTICE) [facility] Method Time Signature Bacterial No growth 03/19/2021 MKTO Culture, after 7 8:26 AM BODY BUILDER APPRENTICE Anaerobic days of incubation. Specimen Anatomical Collection Method Collection Time Receive d Time (Source) Location / / Volume Laterality Fluid 03/12/2021 3:46 PM 1 3:46 (Peritoneal BODY BUILDER APPRENTICE PM BODY BUILDER APPRENTICE Fluid) Comment: Specimen Source Site: Fluid Sera Morgan P.A.-C. LAB MICROBIOLOGY - GENERAL O JOSE Performing Organization Address City/[facility]/ZIP Code Phon e Number [facility]- [address] [place] [phone] [place] [address] System in [place] [address] [facility] Gram Stain (03/12/2021 3:46 PM BODY BUILDER APPRENTICE) [facility] Method Time Signature Gram Stain No organisms seen. 03/12/2021 MKTO White blood cells present. 6:22 PM BODY BUILDER APPRENTICE Stain performed on concentrated cytospin preparation. Specimen Anatomical Collection Method Collection Time Receive d Time (Source) Location / / Volume Laterality Fluid 03/12/2021 3:46 PM 1 3:46 (Peritoneal BODY BUILDER APPRENTICE PM BODY BUILDER APPRENTICE Fluid) Comment: Specimen Source Site: Fluid Sera Morgan P.A.-C. LAB MICROBIOLOGY - GENERAL O RDERAPREMA Performing Organization Address City/[facility]/ZIP Code Phon e Number [facility]- [address] [place] [address] [place] [address] System in [place] [address] [facility] Protein, Total, Body Fluid (03/12/2021 3:46 PM BODY BUILDER APPRENTICE) athologist Signature Protein, 1.0 See Comment 03/14/2021 DTL Total, BF g/dL 10:40 AM BODY BUILDER APPRENTICE Comment: ----ADDITIONAL INFORMATION---- A pleural fluid total [...] ical findings. All other fluids refer to www.[employer].com for further inter pretive information. This test has been modified from the landscaper's instructions. Its perform ance characteristics were determined by [facility] in a manner consistent with CLIA require ments. This test has not been cleared or approv ed by the U.S. Food and Drug Administration. Fluid Type, Protein, Total PERITONEAL 03/14/2021 1 0:06 AM BODY BUILDER APPRENTICE DTL Specimen Anatomical Collection Method Collection Time Receive d Time (Source) Location / / Volume Laterality Fluid 03/12/2021 3:46 PM 1 9:49 (Peritoneal BODY BUILDER APPRENTICE AM BODY BUILDER APPRENTICE Fluid) Sera Morgan P.A.-C. LAB BODY FLUIDS AND STOOLS O RDERABLES Performing Organization Address City/State/ZIP Code Phon e Number [facility] - [address] [place], [place] [address] [facility] [place] [address] Laboratories-[facility] [address] Cell Count and Differential, Body Fluid (03/12/2021 3:46 PM BODY BUILDER APPRENTICE) Patholo gist Method Time Signature Fluid Type Peritoneal/ 03/12/2021 MKTO Paracentesi 4:30 PM BODY BUILDER APPRENTICE s Gross Serous 03/12/2021 MKTO Appearance 4:33 PM BODY BUILDER APPRENTICE Total Nucleated 53 /mcL 03/12/2021 MKTO Cells 4:33 PM BODY BUILDER APPRENTICE Comment: ----REFERENCE VALUE---- Synovial: <150 Peritoneal: <500 Pleural: <500 Pericardial: <500 ----ADDITIONAL INFORMATION---- This test has been modified from the man ufacturer's instructions. Its performance characteri stics were determined by [facility] in a manner co nsistent with CLIA requirements. This test has not bee n cleared or approved by the U.S. Food and Drug Admin istration. Lymphocytes 31 Synovial: <75% % 03/12/2021 5:20 PM CS T MKTO Monocytes/Macrophages 63 Synovial: <70% % 03/12/2021 5:20 PM BODY BUILDER APPRENTICE MKTO Other Cells 6 % 03/12/2021 5:20 PM BODY BUILDER APPRENTICE MKTO Comment: ----REFERENCE VALUE---- The reference range and other method per formance specifications have not been established for this body fluid. The test result must be integrate d into the clinical context for interpretation. Other Cells Are: Mesothelial cells 03/12/2021 5:20 PM BODY BUILDER APPRENTICE MKTO Comment SeeComment 03/12/2021 4:33 PM BODY BUILDER APPRENTICE MKTO Comment: will be reviewed py path. Reviewed by: Dr. Fox 03/13/2021 8:07 AM BODY BUILDER APPRENTICE MKTO Comment: REVISED RESULTS ----PREVIOUSLY REPORTED ---- DNR, Flagged as: Normal (Reported 03/12/2021 17:20) Specimen Anatomical Collection Method Collection Time Receive d Time (Source) Location / / Volume Laterality Fluid 03/12/2021 3:46 PM 3:46 (Peritoneal BODY BUILDER APPRENTICE PM BODY BUILDER APPRENTICE Fluid) Sera Morgan P.A.-C. LAB BODY FLUIDS AND STOOLS O RDERABLES Performing Organization Address City/State/ZIP Code Phon e Number [facility]- [address] [place] [phone] [place] [address] Albumin, Body Fluid (03/12/2021 3:46 PM BODY BUILDER APPRENTICE) P athologist Signature Albumin BF 0.7 See Comment 03/14/2021 DTL g/dL 10:40 AM BODY BUILDER APPRENTICE Comment: ----ADDITIONAL INFORMATION---- Peritoneal fluid albumin is used to calc ulate the serum-ascites albumin gradient (SAAG). V alues greater than or equal to 1.1 g/dL suggest portal hypertension. Pleural fluid albumin may be used to ada culate a serum-effusion albumin gradient. Values greater than 1.2 g/dL are most consistent with a noriega sudative process. ?? All other fluids refer to www.[facility]com for further interpretive information. This t est has been modified from the landscaper's instruc tions. Its performance characteristics were determi foreign by [facility] in a manner consistent with CLIA require ments. This test has not been cleared or approved by the U.S. Food and Drug Administration. Fluid Type, Albumin PERITONEAL 03/14/2021 10:06 AM BODY BUILDER APPRENTICE DT Specimen Anatomical Collection Method Collection Time Receive d Time (Source) Location / / Volume Laterality Fluid 03/12/2021 3:46 PM 9:49 (Peritoneal BODY BUILDER APPRENTICE AM BODY BUILDER APPRENTICE Fluid) Sera Morgan P.A.-C. LAB BODY FLUIDS AND STOOLS O RDERABLES Performing Organization Address City/[facility]/ZIP Code Phon e Number [facility] - [address] [place], [place] [address] [facility] [address] Laboratories-[facility] [address] [id number] (03/12/2021 2:57 PM BODY BUILDER APPRENTICE) athologist [facility] [id number] 170 100 - 190 03/14/[address] [facility] psin, S mg/dL 10:09 AM BODY BUILDER APPRENTICE Specimen Anatomical Collection Method Collection Time Receive d Time (Source) Location / / Volume Laterality Blood (Blood, 03/12/2021 2:57 PM 03/14/20 21 7:05 Venous) BODY BUILDER APPRENTICE AM BODY BUILDER APPRENTICE Sera Morgan P.A.-C. LAB BLOOD ADD-ON Performing Organization Address City/State/ZIP Code Phon e Number [facility] [address] [place], [place] [address] SUPPORT CENTER [facility] [place] [address] Laboratory Medicine and Pathology [address] [place] (ABNORMAL) Ceruloplasmin (03/12/2021 2:57 PM BODY BUILDER APPRENTICE) athologist Signature Ceruloplasmin, 16.5 (L) 20.0 - 03/13/2021 DTL S 51.0 mg/dL 10:48 AM BODY BUILDER APPRENTICE Comment: A low concentration of ceruloplasmin in [...] at or the on-line test catalog at [employer] for m ore information. Specimen Anatomical Collection Method Collection Time Receive d Time (Source) Location / / Volume Laterality Blood 03/12/2021 2:57 PM 8:43 BODY BUILDER APPRENTICE AM BODY BUILDER APPRENTICE Barrera Vargas M.D. LAB BLOOD ADD-ON Performing Organization Address City/State/ZIP Code Phon e Number [facility] - [address] [place] [address] [facility] [place] [address] Laboratories-[facility] [address] [facility] Autoimmune Liver Disease Panel (03/12/2021 2:57 PM BODY BUILDER APPRENTICE) Analysis Performed At Patho logist Time Signature Mitochondrial Ab, <0.1 <0.1 03/13/2021 SDSC M2, S (Negative) 2:19 PM BODY BUILDER APPRENTICE U Antinuclear Ab, S 0.2 <=1.0 03/13/2021 [facility] (Negative) 12:55 PM BODY BUILDER APPRENTICE U Comment: ----ADDITIONAL INFORMATION---- Method: Enzyme-linked immunoassay using HEp-2 nuclear extract supplemented with purified antig ens. Smooth Muscle Ab Screen, S Negative Negative 03/13/2021 12 :11 PM BODY BUILDER APPRENTICE SDSC Comment: Negative: No further testing will be per formed ----ADDITIONAL INFORMATION---- This test was developed and its performa nce characteristics determined by [facility] in a manner consistent with CLIA requirements. This test has not been cleared or approved by the U.[place]. [place] d and Drug Administration. Specimen Anatomical Collection Method Collection Time Receive d Time (Source) Location / / Volume Laterality Blood 03/12/2021 2:57 PM 7:28 BODY BUILDER APPRENTICE AM BODY BUILDER APPRENTICE Barrera Vargas M.D. LAB BLOOD ADD-ON Performing Organization Address City/State/ZIP Code Phon e Number [facility] [place], [place] [address] [place] [address] [place] [address] Laboratory Medicine and Pathology [address] [place] (ABNORMAL) Glucose, POCT (03/12/2021 2:06 PM BODY BUILDER APPRENTICE) athologist Signature Glucose, POCT, 155 (H) 70 - 140 03/12/2021 MK B mg/dL 2:06 PM BODY BUILDER APPRENTICE Specimen Anatomical Collection Method Collection Time Receive d Time (Source) Location / / Volume Laterality Blood 03/12/2021 2:06 PM 1 2:39 BODY BUILDER APPRENTICE PM BODY BUILDER APPRENTICE Generic Rals LAB POCT ORDERABLES-MANUAL Performing Organization Address City/State/ZIP Code Phon e Number [facility]- [address] [place] [address] [place] [address] Abdomen Pelvis with IV Contrast (03/12/2021 1:50 PM BODY BUILDER APPRENTICE) Anatomical Region Laterality Modality Abdomen, Pelvis, Abdominal RST LOS, Abdominal ARZ LOS, N/A Computed Tomography Abdominal FLA LOS Specimen (Source) Anatomical Collection Method Collection Time Re ceived Time Location / / Volume Laterality 03/12/2021 2:04 PM BODY BUILDER APPRENTICE Impressions 03/12/2021 2:37 PM BODY BUILDER APPRENTICE 1. ??Partial atelectasis of the bilatera l [...] anterior fifth rib. Narrative 03/12/2021 2:37 PM BODY BUILDER APPRENTICE EXAM: CT CHEST WITH IV CONTRAST, CT [...] Chest with IV Contrast (03/12/2021 1:50 PM BODY BUILDER APPRENTICE) Anatomical Region Laterality Modality Chest, Thoracic RST LOS, Thoracic ARZ LOS, Thoracic N/A Computed Tomography ARZ LOS, Thoracic FLA LOS Specimen (Source) Anatomical Collection Method Collection Time Re ceived Time Location / / Volume Laterality 03/12/2021 2:04 PM BODY BUILDER APPRENTICE Impressions 03/12/2021 2:37 PM BODY BUILDER APPRENTICE 1. ??Partial atelectasis of the bilatera l [...] anterior fifth rib. Narrative 03/12/2021 2:37 PM BODY BUILDER APPRENTICE EXAM: CT CHEST WITH IV CONTRAST, CT [...] fifth rib. Barrera PERALES CT PROCEDURES CT Head without IV Contrast (03/12/2021 1:49 PM BODY BUILDER APPRENTICE) Anatomical Region Laterality Modality Head, Neuroradiology RST LOS, Neuroradiology ARZ LOS, N/A Computed Tomography Neuroradiology FLA LOS Specimen (Source) Anatomical Collection Method Collection Time Re ceived Time Location / / Volume Laterality 03/12/2021 1:50 PM BODY BUILDER APPRENTICE Impressions 03/12/2021 1:52 PM BODY BUILDER APPRENTICE No acute CT abnormalities are demonstrated. Narrative 03/12/2021 1:52 PM BODY BUILDER APPRENTICE EXAM: CT HEAD WITHOUT IV CONTRAST COMPARISON: [...] Barrera Vargas M.D. IMG CT PROCEDURES Cytology Non-LEADER WRITER (03/12/2021 1:11 PM BODY BUILDER APPRENTICE) Component Value Ref Test Analysis Performed At [facility] Range Method Time Signature /14/2021 [facility] 12:37 PM BODY BUILDER APPRENTICE Report Lloyd Alfaro MD 03/14/2021 [facility] electronically 12:37 PM signed by BODY BUILDER APPRENTICE I verify that I have examined all relevant slides/materials for the specimen(s) and rendered or confirmed the diagnosis. Gross Description 800 ml cloudy brownish red fluid received. ??60 m l fixed 03/14/2021 [facility] with 70% ETOH 03-12-21 @ 15:30 12:37 PM 2 slides and cell block prepared. BODY BUILDER APPRENTICE Source A. Pleural, 03/14/2021 [facility] Right, fluid 12:37 PM BODY BUILDER APPRENTICE Interpretation A. Pleural, Right, fluid (smears/cell block): Negati ve for 03/14/2021 [facility] malignancy. 12:37 PM BODY BUILDER APPRENTICE Specimen Anatomical Collection Method Collection Time Receive d Time (Source) Location / / Volume Laterality Varies 03/12/2021 1:11 PM 6:20 BODY BUILDER APPRENTICE AM BODY BUILDER APPRENTICE Narrative This result has an attachment that is no t available. Barrera Vargas M.D. LAB SURG PATH ORDERABLES Performing Organization Address City/State/ZIP Code Phon e Number [facility]- [address] [place] [address] [facility] [place] [place] [address] System [place] [facility] [address] [facility] ECG 12 Lead (03/12/2021 1:01 PM BODY BUILDER APPRENTICE) P athologist Signature Ventricular Rate 84 BPM MUSE ECG/Min [place] Interval 166 ms MUSE QRSD Interval 92 ms MUSE QT Interval 436 ms MUSE QTC Interval 516 ms MUSE P Bement 62 degrees MUSE R Bement 43 degrees MUSE T Wave Bement -20 degrees MUSE Specimen Anatomical Collection Method Collection Time Receive d Time (Source) Location / / Volume Laterality 03/12/2021 1:01 PM 1:24 BODY BUILDER APPRENTICE PM BODY BUILDER APPRENTICE Impressions MUSE - 03/12/2021 1:21 PM BODY BUILDER APPRENTICE Normal sinus rhythm ST and T wave [...] Chest Portable 1 View (03/12/2021 1:00 PM BODY BUILDER APPRENTICE) Anatomical Region Laterality Modality Chest, Thoracic RST LOS, Thoracic ARZ LOS, Thoracic N/A Digital Radiography FLA LOS Specimen (Source) Anatomical Collection Method Collection Time Re ceived Time Location / / Volume Laterality 03/12/2021 1:12 PM BODY BUILDER APPRENTICE Impressions 03/12/2021 1:14 PM BODY BUILDER APPRENTICE 1. New endotracheal tube with tip positioned [...] acute airspace disease. Narrative 03/12/2021 1:14 PM BODY BUILDER APPRENTICE EXAM: DX CHEST PORTABLE 1 VIEW COMPARISON: [...] P ROCEDURES Testing Location (03/12/2021 12:59 PM BODY BUILDER APPRENTICE) P athologist Signature Testing [facility] DEFAULT 03/12/2021 MK[facility] Location 1:05 PM BODY BUILDER APPRENTICE Specimen Anatomical Collection Method Collection Time Receive d Time (Source) Location / / Volume Laterality Blood 03/12/2021 12:59 03/12/2021 1:05 PM BODY BUILDER APPRENTICE PM BODY BUILDER APPRENTICE Barrera Vargas M.D. LAB BLOOD BANK TEST ORDE GOSIA Performing Organization Address City/State/ZIP Code Phon e Number [facility]- [address] [place] [address] [place] [address] (ABNORMAL) Bilirubin, Direct (03/12/2021 12:59 PM BODY BUILDER APPRENTICE) P athologist Signature Bilirubin, 2.7 (H) 0.0 - 0.3 03/12/2021 MKTO Direct, P mg/dL 1:40 PM BODY BUILDER APPRENTICE Specimen Anatomical Collection Method Collection Time Receive d Time (Source) Location / / Volume Laterality Blood (Blood, 03/12/2021 12:59 03/12/2021 1:08 Venous) PM BODY BUILDER APPRENTICE PM BODY BUILDER APPRENTICE Sera Morgan P.A.-C. LAB BLOOD ADD-ON Performing Organization Address City/[facility]/ZIP Code Phon e Number [address] [address] [place] [address] [address] Patient Status (03/12/2021 12:59 PM BODY BUILDER APPRENTICE) P athologist Signature FIO2 0.50 0.21=AIR 03/12/2021 1:09 MKTO PM BODY BUILDER APPRENTICE Specimen Anatomical Collection Method Collection Time Receive d Time (Source) Location / / Volume Laterality Blood 03/12/2021 12:59 03/12/2021 1:04 PM BODY BUILDER APPRENTICE PM BODY BUILDER APPRENTICE Barrera Vargas M.D. LAB BLOOD NON ADD-ON Performing Organization Address City/State/ZIP Code Phon e Number [facility]- [address] [place] [address] [place] [address] Lactate, B (03/12/2021 12:59 PM BODY BUILDER APPRENTICE) P athologist Signature Lactate, B 2.2 0.5 - 2.2 03/12/2021 MK[facility] mmol/L 1:09 PM BODY BUILDER APPRENTICE Specimen Anatomical Collection Method Collection Time Receive d Time (Source) Location / / Volume Laterality Blood 03/12/2021 12:59 03/12/2021 1:05 PM BODY BUILDER APPRENTICE PM BODY BUILDER APPRENTICE Barrera Vargas M.D. LAB BLOOD NON ADD-ON Performing Organization Address City/State/ZIP Code Phon e Number [address] [address] [place] [address] System [place] [address] (ABNORMAL) Blood Gas with Coox, Arterial (03/12/2021 12:59 PM BODY BUILDER APPRENTICE) P athologist Signature P O2 102 83 - 108 03/12/2021 [facility] mm Hg 1:09 PM BODY BUILDER APPRENTICE P CO2 31 (L) 32 - 45 mm 03/12/2021 [facility] Hg 1:09 PM BODY BUILDER APPRENTICE pH 7.47 (H) 7.35 - 03/12/2021 MK[facility] 7.45 pH 1:09 PM BODY BUILDER APPRENTICE Base Excess -1 -2 - 3 03/12/2021 [facility] mmol/L 1:09 PM BODY BUILDER APPRENTICE HCO3 23 22 - 26 03/12/2021 [facility] mmol/L 1:09 PM BODY BUILDER APPRENTICE Hemoglobin, B 6.5 (L) 11.6 - 03/12/2021 [facility] 15.0 g/dL 1:09 PM BODY BUILDER APPRENTICE O2Hb 96.9 94.0 - 03/12/2021 [facility] 98.0 % 1:09 PM BODY BUILDER APPRENTICE COHb 1.8 <3.0 % 03/12/2021 [facility] 1:09 PM BODY BUILDER APPRENTICE MetHb 0.0 <1.5 % 03/12/2021 [facility] 1:09 PM BODY BUILDER APPRENTICE CtO2 9.1 (L) 18.0 - 03/12/2021 MK[facility] 21.0 vol % 1:09 PM BODY BUILDER APPRENTICE Arterial Art Line 03/12/2021 MK[facility] Sample Site 1:09 PM BODY BUILDER APPRENTICE Comment: Michael's test not done. Specimen Anatomical Collection Method Collection Time Receive d Time (Source) Location / / Volume Laterality Blood (Blood, 03/12/2021 12:59 03/12/2021 1:04 Arterial) PM BODY BUILDER APPRENTICE PM BODY BUILDER APPRENTICE Barrera Vargas M.D. LAB BLOOD NON ADD-ON Performing Organization Address City/State/ZIP Code Phon e Number [address] [place] [address] [place] [address] Type and Screen (with reflex Antibody ID) (03/12/2021 12:59 PM BODY BUILDER APPRENTICE) [facility] gist Method Time Signature ABO Group B 03/12/2021 MKTO 1:45 PM BODY BUILDER APPRENTICE Rh Type POS 03/12/2021 [facility] 1:45 PM BODY BUILDER APPRENTICE Antibody Screen NEG 03/12/2021 MK[facility] 1:45 PM BODY BUILDER APPRENTICE Type & Screen 03/15/2021 03/12/2021 MKTO Expiration 23:59 1:45 PM BODY BUILDER APPRENTICE ELXM Eligible Y 03/12/2021 MKTO 1:45 PM BODY BUILDER APPRENTICE Specimen Anatomical Collection Method Collection Time Receive d Time (Source) Location / / Volume Laterality Blood (Blood, 03/12/2021 12:59 03/12/2021 1:05 Venous) PM BODY BUILDER APPRENTICE PM BODY BUILDER APPRENTICE Barrera Vargas M.D. LAB BLOOD BANK TEST ORDE RABEAGLE Performing Organization Address City/State/ZIP Code Phon e Number [facility]- [address] [place] [address] [place] [address] LD (Lactate Dehydrogenase) (03/12/2021 12:59 PM BODY BUILDER APPRENTICE) Analysis Performed At [facility] logist Time Signature Lactate 218 122 - 222 03/12/2021 [facility] Dehydrogenase U/L 1:39 PM BODY BUILDER APPRENTICE (LD), P Specimen Anatomical Collection Method Collection Time Receive d Time (Source) Location / / Volume Laterality Blood (Blood, 03/12/2021 12:59 03/12/2021 1:26 Venous) PM BODY BUILDER APPRENTICE PM BODY BUILDER APPRENTICE Barrera Vargas M.D. LAB BLOOD NON ADD-ON Performing Organization Address City/[facility] Phon e Number [facility]- [address] [place] [address] [place] [address] Cytology Non-LEADER WRITER (03/12/2021 12:39 PM BODY BUILDER APPRENTICE) Component Value Ref Test Analysis Performed At Patholo gist Range Method Time Signature 03/14/2021 [facility] 12:36 PM BODY BUILDER APPRENTICE Report Lloyd Alfaro MD 03/14/2021 [facility] electronically 12:36 PM signed by BODY BUILDER APPRENTICE I verify that I have examined all relevant slides/materials for the specimen(s) and rendered or confirmed the diagnosis. Gross Description 925 ml of cloudy hinson yellow fluid received. ?? Specimen 03/14/2021 [facility] fixed @ 2:00 pm on 03-12-2021. 12:36 PM 2 slides and cell block prepared. BODY BUILDER APPRENTICE Collection Paracentesis 03/14/2021 [facility] Procedure 12:36 PM BODY BUILDER APPRENTICE Source A. Peritoneal, 03/14/2021 [facility] fluid 12:36 PM BODY BUILDER APPRENTICE Interpretation A. Peritoneal, fluid (smears/cell block): Negative f or 03/14/2021 [facility] malignancy. 12:36 PM BODY BUILDER APPRENTICE Specimen Anatomical Collection Method Collection Time Receive d Time (Source) Location / / Volume Laterality Varies 03/12/2021 12:39 03/12/2021 2:00 PM BODY BUILDER APPRENTICE PM BODY BUILDER APPRENTICE Narrative This result has an attachment that is no t available. Barrera Vargas M.D. LAB SURG PATH ORDERABLES Performing Organization Address City/State/ZIP Code Phon e Number [facility]- [address] [place] [address] Cyt[address] [place] [address] Lactate Dehydrogenase (LD), Body Fluid (03/12/2021 12:35 PM BODY BUILDER APPRENTICE) [facility] Method Time Signature Lactate 84 See Comment 03/13/2021 DTL Dehydrogenase U/L 11:50 AM BODY BUILDER APPRENTICE (LD), BF Comment: ----ADDITIONAL INFORMATION---- Pleural fluid [...] clinical findings. All other fluids refer to www.[email or web address].com for further interpretive information. This test has been modified from the man ufacturer's instructions. Its performance characteristics were det ermined by [facility] in a manner consistent with CLIA requirements . This test has not been cleared or approved by the U.S. Food and Drug Administration. Fluid Type, Lactate Pleural Fluid, Right 1 10:15 AM BODY BUILDER APPRENTICE DTL Dehydrogenase Specimen Anatomical Collection Method Collection Time Receive d Time (Source) Location / / Volume Laterality Fluid (Pleural 03/12/2021 12:35 1 8:56 Fluid, Right) PM BODY BUILDER APPRENTICE AM BODY BUILDER APPRENTICE Barrera Vargas M.D. LAB BODY FLUIDS AND STOO LS ORDERABLES Performing Organization Address City/State/ZIP Code Phon e Number [facility] - [address] [place], [place] [address] [facility] [place] [address] Laboratories-[facility] [address] Protein, Total, Body Fluid (03/12/2021 12:35 PM BODY BUILDER APPRENTICE) athologist Signature Protein, 1.5 See Comment 03/13/2021 DTL Total, BF g/dL 11:50 AM BODY BUILDER APPRENTICE Comment: ----ADDITIONAL INFORMATION---- A pleural fluid total [...] ical findings. All other fluids refer to www.[email or web address] [email or web address] for further inter pretive information. This test has been modified from the landscaper's instructions. Its perform ance characteristics were determined by [facility] in a manner consistent with CLIA require ments. This test has not been cleared or approv ed by the U.S. Food and Drug Administration. Fluid Type, Protein, Total Pleural Fluid, Right 10:15 AM BODY BUILDER APPRENTICE DTL Specimen Anatomical Collection Method Collection Time Receive d Time (Source) Location / / Volume Laterality Fluid (Pleural 03/12/2021 12:35 1 8:56 Fluid, Right) PM BODY BUILDER APPRENTICE AM BODY BUILDER APPRENTICE Barrera Vargas M.D. LAB BODY FLUIDS AND STOO LS ORDERABLES Performing Organization Address City/[facility]/ZIP Code Phon e Number [facility] - [address] [place], [place] [address] [place] [address] [facility] [address] Glucose, Body Fluid (03/12/2021 12:34 PM BODY BUILDER APPRENTICE) athologist Signature Glucose, BF 124 See Comment 03/13/2021 DTL mg/dL 11:44 AM BODY BUILDER APPRENTICE Comment: ----ADDITIONAL INFORMATION---- Body fluid glucose concentrations [...] of infection. All other fluids refer to [email or web address] for further inter pretive information. This test has been modified from the man ufacturer's instructions. Its performance characteri stics were determined by [facility] in a manner co nsistent with CLIA requirements. This test has not been norah ared or approved by the U.S. Food and Drug Administration. Fluid Type, Glucose Pleural Fluid, Right 1 10:14 AM BODY BUILDER APPRENTICE DT Specimen Anatomical Collection Method Collection Time Receive d Time (Source) Location / / Volume Laterality Fluid (Pleural 03/12/2021 12:34 1 8:55 Fluid, Right) PM BODY BUILDER APPRENTICE AM BODY BUILDER APPRENTICE Barrera Vargas M.D. LAB BODY FLUIDS AND STOO LS ORDERABLES Performing Organization Address City/[facility]/ZIP [facility] Phon e Number [facility] - [address] [place], [place] [address] [facility] [place] [address] [facility] [address] Gram Stain (03/12/2021 12:34 PM BODY BUILDER APPRENTICE) Patholo gist Method Time Signature Gram Stain No organisms seen. 03/12/2021 MK[facility] White blood cells present. 4:46 PM BODY BUILDER APPRENTICE Stain performed on concentrated cytospin preparation. Specimen Anatomical Collection Method Collection Time Receive d Time (Source) Location / / Volume Laterality Fluid (Pleural 03/12/2021 12:34 1:08 Fluid, Right) PM BODY BUILDER APPRENTICE PM BODY BUILDER APPRENTICE Comment: Specimen Source Site: Fluid Barrera Vargas M.D. LAB MICROBIOLOGY - GENER AL ORDERABLES Performing Organization Address City/State/ZIP Code Phon e Number [facility]- [facility] [place] [address] [place] [address] System [address] Cell Count and Differential, Body Fluid (03/12/2021 12:34 PM BODY BUILDER APPRENTICE) [facility] Method Time Signature Fluid Type Pleural/Thor 03/12/2021 MKTO acentesis 2:12 PM BODY BUILDER APPRENTICE Gross Slightly 03/12/2021 MK[facility] Appearance Cloudy 2:13 PM BODY BUILDER APPRENTICE Total 350 /mcL 03/12/2021 MK[facility] Nucleated 2:13 PM BODY BUILDER APPRENTICE Cells Comment: ----REFERENCE VALUE---- Synovial: <150 Peritoneal: <500 Pleural: <500 Pericardial: <500 ----ADDITIONAL INFORMATION---- This test has been modified from the florence ufacturer's instructions. Its performance characteri stics were determined by [facility] in a manner co nsistent with CLIA requirements. This test has not bee n cleared or approved by the U.S. Food and Drug Admin istration. Neutrophils 4 % 03/12/2021 2:47 PM BODY BUILDER APPRENTICE MKTO Comment: ----REFERENCE VALUE---- Synovial: <25% Peritoneal: <25% Pleural: <25% Pericardial: <25% Lymphocytes 13 Synovial: <75% % 03/12/2021 2:47 PM CS T MKTO Monocytes/Macrophages 76 Synovial: <70% % 03/12/2021 2:47 PM BODY BUILDER APPRENTICE MKTO Other Cells 7 % 03/12/2021 2:47 PM BODY BUILDER APPRENTICE MKTO Comment: ----REFERENCE VALUE---- The reference range and other method per formance specifications have not been established for this body fluid. The test result must be integrate d into the clinical context for interpretation. Other Cells Are: Mesothelial cells 03/12/2021 2:47 PM BODY BUILDER APPRENTICE MKTO Reviewed by: Dr. Joshua Castrjeon 03/12/2021 2:47 PM CS T MKTO Specimen Anatomical Collection Method Collection Time Receive d Time (Source) Location / / Volume Laterality Fluid (Pleural 03/12/2021 12:34 1 1:08 Fluid, Right) PM BODY BUILDER APPRENTICE PM BODY BUILDER APPRENTICE Barrera Vargas M.D. LAB BODY FLUIDS AND STOO LS ORDERABLES Performing Organization Address City/[facility]/ZIP Code Phon e Number [facility]- [address] [place] [address] [place] [address] Bacterial Culture, Anaerobic + Susc (03/12/2021 12:34 PM BODY BUILDER APPRENTICE) [facility] gist Method Time Signature Bacterial No growth 03/19/2021 MKTO Culture, after 7 8:26 AM BODY BUILDER APPRENTICE Anaerobic days of incubation. Specimen Anatomical Collection Method Collection Time Receive d Time (Source) Location / / Volume Laterality Fluid (Pleural 03/12/2021 12:34 1 1:08 Fluid, Right) PM BODY BUILDER APPRENTICE PM BODY BUILDER APPRENTICE Comment: Specimen Source Site: Fluid Barrera Vargas M.D. LAB MICROBIOLOGY - GENER AL ORDERABLES Performing Organization Address City/[facility]/ZIP Code Phon e Number [facility]- [facility] [place] [address] [place] [address] Bacterial Culture, Aerobic + Susc (03/12/2021 12:34 PM BODY BUILDER APPRENTICE) Patholo gist Method Time Signature Bacterial No growth 03/17/2021 MK[facility] Culture, after 5 7:38 AM BODY BUILDER APPRENTICE Aerobic + Susc days of incubation. Specimen Anatomical Collection Method Collection Time Receive d Time (Source) Location / / Volume Laterality Fluid (Pleural 03/12/2021 12:34 1 1:08 Fluid, Right) PM BODY BUILDER APPRENTICE PM BODY BUILDER APPRENTICE Comment: Specimen Source Site: Fluid Barrera Vargas M.D. LAB MICROBIOLOGY - GENER AL ORDERABLES Performing Organization Address City/State/ZIP Code Phon e Number [facility]- [address] [place] [address] [place] [address] System in [place] [address] [facility] Influenza A/B and RSV, PCR, Varies (03/12/2021 11:00 AM BODY BUILDER APPRENTICE) [facility] Method Time Signature Influenza A/B Swab, 03/13/2021 DTL and RSV, Nasopharynx 11:55 AM Source BODY BUILDER APPRENTICE Influenza A, Undetected Undetected 03/13/2021 DTL PCR 11:55 AM BODY BUILDER APPRENTICE Comment: Influenza A RNA absent. Influenza B, PCR Undetected Undetected 03/13/2021 11:[address] DTL Comment: Influenza B RNA absent. Respiratory Syncytial Virus, Undetected Undetected 11:55 AM BODY BUILDER APPRENTICE DTL PCR Comment: RSV RNA absent. ----ADDITIONAL INFORMATION---- This test has been modified from the [facility] instructions. Its performance characteristics were determi foreign by [facility] in a manner consistent with CLIA requirements. This test has not been cleared or approved by the U.S. Food and Drug Administration . Specimen Anatomical Collection Method Collection Time Receive d Time (Source) Location / / Volume Laterality Varies 03/12/2021 11:00 03/13/2021 7:12 (Nasopharynx) AM BODY BUILDER APPRENTICE AM BODY BUILDER APPRENTICE Nunu Sanches P.A.-C., M.S. LAB MICROBIOLOGY - GENE RAL ORDERABLES Performing Organization Address City/State/ZIP Code Phon e Number [facility] - [address] [place], [place] [address] [facility] [place] [address] [facility] [address] SARS Coronavirus-2 RNA, V Symptomatic (03/12/2021 11:00 AM BODY BUILDER APPRENTICE) [facility] Method Time Signature SARS-CoV-2 Swab, 03/12/2021 MK[facility] Specimen Nasopharynx 7:30 PM BODY BUILDER APPRENTICE Source SARS CoV-2 Undetected Undetected 03/12/2021 MKTO RNA, TMA 7:30 PM BODY BUILDER APPRENTICE Comment: SARS-CoV-2 RNA absent. This result does not rule out COVID-19 in the patient, as the sensitivity of the test depends o n the timing of the specimen collection and the quality of the specim en. Result should be correlated with patient's history and clinical presentat ion. ----ADDITIONAL INFORMATION---- This molecular amplification test was pe rformed using the Aptima SARS-CoV-2 assay ([employer] on the [employer] Sys tem under emergency use authorization (EUA) by the U.S. Food and Drug Administ ration. Fact sheets for this EUA assay can be fo und at the following links: For Healthcare Providers: https://www.fintonic a.gov/media/995742/download For Patients: https://www.fda.gov/media/ 043841/download Specimen Anatomical Collection Method Collection Time Receive d Time (Source) Location / / Volume Laterality Varies 03/12/2021 11:00 03/12/2021 (Nasopharynx) AM BODY BUILDER APPRENTICE 11:05 AM BODY BUILDER APPRENTICE Nunu Sanches P.A.-C. MSumaSSuma LAB MICROBIOLOGY - [facility] ORDERABLES Performing Organization Address City/State/ZIP Code Phon e Number [facility]- [address] [place] [address] [place] [address] [place] ARTL CATH/CNULA MONITOR PERC, LDA ANE ARTERIAL LINE INSERTION (03/12/2021 10:45 AM BODY BUILDER APPRENTICE) Narrative Barrera To M.D. - 2020 10:45 AM BODY BUILDER APPRENTICE Barrera To M.D. ? 03/12/2021 ??6:09 PM [...] SURGICAL ORDERABLES Patient Status (03/12/2021 7:10 AM BODY BUILDER APPRENTICE) athologist Signature FIO2 0.50 0.21=AIR 03/12/2021 7:37 MKTO AM BODY BUILDER APPRENTICE Specimen Anatomical Collection Method Collection Time Receive d Time (Source) Location / / Volume Laterality Blood 03/12/2021 7:10 AM 7:30 BODY BUILDER APPRENTICE AM BODY BUILDER APPRENTICE Nunu Sanches P.A.-C., M.S. LAB BLOOD NON ADD-ON Performing Organization Address City/State/ZIP Code Phon e Number [facility]- [address] [place] [id number] [place] [address] [place] [address] System [address] (ABNORMAL) Blood Gas with Coox, Arterial (03/12/2021 7:10 AM BODY BUILDER APPRENTICE) athologist Signature P O2 77 (L) 83 - 108 03/12/2021 MKTO mm Hg 7:37 AM BODY BUILDER APPRENTICE P CO2 20 (CL) 32 - 45 mm 03/12/2021 MKTO Hg 7:37 AM BODY BUILDER APPRENTICE pH 7.53 (H) 7.35 - 03/12/2021 MKTO 7.45 pH 7:37 AM BODY BUILDER APPRENTICE Base Excess -5 (L) -2 - 3 03/12/2021 MK[facility] mmol/L 7:37 AM BODY BUILDER APPRENTICE HCO3 17 (L) 22 - 26 03/12/2021 MKTO mmol/L 7:37 AM BODY BUILDER APPRENTICE Hemoglobin, B 7.6 (L) 11.6 - 03/12/2021 MKTO 15.0 g/dL 7:37 AM BODY BUILDER APPRENTICE O2Hb 95.2 94.0 - 03/12/2021 MKTO 98.0 % 7:37 AM BODY BUILDER APPRENTICE COHb 1.6 <3.0 % 03/12/2021 MKTO 7:37 AM BODY BUILDER APPRENTICE MetHb 0.0 <1.5 % 03/12/2021 MKTO 7:37 AM BODY BUILDER APPRENTICE CtO2 10.3 (L) 18.0 - 03/12/2021 MKTO 21.0 vol % 7:37 AM BODY BUILDER APPRENTICE Arterial R-Radial 03/12/2021 MKTO Sample Site 7:37 AM BODY BUILDER APPRENTICE Specimen Anatomical Collection Method Collection Time Receive d Time (Source) Location / / Volume Laterality Blood (Blood, 03/12/2021 7:10 AM 03/12/20 7:30 Arterial) BODY BUILDER APPRENTICE AM BODY BUILDER APPRENTICE Nunu Sanches P.A.-C., M.S. LAB BLOOD NON ADD-ON Performing Organization Address City/State/ZIP Code Phon e Number [facility]- [address] [place] [address] [place] [address] (ABNORMAL) Lactate, B (03/12/2021 7:10 AM BODY BUILDER APPRENTICE) athologist Signature Lactate, B 9.3 (H) 0.5 - 2.2 03/12/2021 MKTO mmol/L 7:38 AM BODY BUILDER APPRENTICE Specimen Anatomical Collection Method Collection Time Receive d Time (Source) Location / / Volume Laterality Blood 03/12/2021 7:10 AM 7:30 BODY BUILDER APPRENTICE AM BODY BUILDER APPRENTICE Nunu Sanches P.A.-C., MSumaSSuma LAB BLOOD NON ADD-ON Performing Organization Address City/[facility] Phon e Number [facility]- [address] [place] [address] [place] [address] [address] Bacteria / Raudel Culture, Blood #2 (03/12/2021 7:10 AM BODY BUILDER APPRENTICE) [facility] Method Time Signature Bacteria/Adriana No growth 03/17/2021 [facility] da Culture, after 5 8:05 AM BODY BUILDER APPRENTICE Blood day/s of incubation. Specimen (Source) Anatomical Collection Method Collection Time Re ceived Time Location / / Volume Laterality Blood (Blood, 03/12/2021 7:10 03/12/2021 7:31 Peripheral Draw) AM BODY BUILDER APPRENTICE AM BODY BUILDER APPRENTICE Comment: Specimen Source Site: Blood Nunu Sanches P.A.-C. M.S. LAB MICROBIOLOGY - GENE RAL ORDERABLES Performing Organization Address [facility] Phon e Number [facility]- [address] [place] [address] [place] [address] DX Chest Portable 1 View (03/12/2021 6:24 AM BODY BUILDER APPRENTICE) Anatomical Region Laterality Modality Chest, Thoracic RST LOS, Thoracic ARZ LOS, Thoracic N/A Digital Radiography FLA LOS Specimen (Source) Anatomical Collection Method Collection Time Re ceived Time Location / / Volume Laterality 03/12/2021 7:25 AM BODY BUILDER APPRENTICE Impressions 03/12/2021 7:27 AM BODY BUILDER APPRENTICE Large right pleural effusion and right-sided consolidation. Centrally obstructing process within bro nchus is not excluded. Narrative 03/12/2021 7:27 AM BODY BUILDER APPRENTICE EXAM: DX CHEST PORTABLE 1 VIEW COMPARISON: [...] right-s ided consolidation. Centrally obstructing process within bro nchus is not excluded. Nunu Sanches P.A.-C., M.S. IMG DIAGNOSTIC IMAGING PROCEDURES (ABNORMAL) Microscopic Automated (03/12/2021 6:23 AM BODY BUILDER APPRENTICE) athologist Signature White Blood Occ-3 /hpf 03/12/2021 MKTO Cells 7:18 AM BODY BUILDER APPRENTICE Comment: ----REFERENCE VALUE---- Males: 0-3 Females: 0-10 Unknown: 0-10 Red Blood Cells 3-10 (A) 0 - 2 /hpf 03/12/2021 7:18 AM BODY BUILDER APPRENTICE MKTO Dysmorphic Red Blood Cells <=25 <=25 % 03/12/2021 7: 18 AM BODY BUILDER APPRENTICE MKTO Hyaline Casts 4-10 /lpf 03/12/2021 7:18 AM BODY BUILDER APPRENTICE MKT O Squamous Cells Occ-3 /hpf 03/12/2021 7:18 AM BODY BUILDER APPRENTICE MK TO Specimen Anatomical Collection Method Collection Time Receive d Time (Source) Location / / Volume Laterality Urine 03/12/2021 6:23 AM 6:47 BODY BUILDER APPRENTICE AM BODY BUILDER APPRENTICE Nunu Sanches P.A.-C., M.S. LAB URINE ORDERABLES Performing Organization Address City/State/ZIP Code Phon e Number [facility]- [address] [place] [phone] [place] [address] MRSA PCR, Nasal (03/12/2021 6:23 AM BODY BUILDER APPRENTICE) athologist Signature MRSA Screen, Negative Negative 03/12/2021 [facility] Nasal by PCR 10:50 AM BODY BUILDER APPRENTICE Specimen Anatomical Collection Method Collection Time Receive d Time (Source) Location / / Volume Laterality Swab (Nares) 03/12/2021 6:23 AM 6:47 BODY BUILDER APPRENTICE AM BODY BUILDER APPRENTICE Nunu Sanches P.A.-C., M.S. LAB MICROBIOLOGY - GENE RAL ORDERABLES Performing Organization Address City/State/ZIP Code Phon e Number [facility]- [address] [place] [phone] [place] [address] (ABNORMAL) Urinalysis with Microscopic if Indicated (03/12/2021 6:23 AM BODY BUILDER APPRENTICE) P athologist Signature Source Urine, 03/12/2021 [facility] Urine, 6:56 AM BODY BUILDER APPRENTICE Clean Catch Clarity Clear Clear 03/12/2021 [place] 6:56 AM BODY BUILDER APPRENTICE Color Priscilla 03/12/2021 [facility] 6:56 AM BODY BUILDER APPRENTICE Comment: ----REFERENCE VALUE---- Colorless Yellow Priscilla Blood Negative Negative 03/12/2021 6:56 AM BODY BUILDER APPRENTICE MK[facility] Nitrite Negative Negative 03/12/2021 6:56 AM BODY BUILDER APPRENTICE MK[facility] Leukocyte Esterase Small (A) Negative 03/12/2021 6:56 AM CS T MKTO Protein Trace mg/dL 03/12/2021 6:56 AM BODY BUILDER APPRENTICE MK[facility] Comment: ----REFERENCE VALUE---- Negative Trace Glucose Negative Negative mg/dL 03/12/2021 6:56 AM BODY BUILDER APPRENTICE MK [facility] Ketone Trace (A) Negative mg/dL 03/12/2021 6:56 AM BODY BUILDER APPRENTICE MK [facility] Bilirubin Moderate (A) Negative 03/12/2021 6:56 AM BODY BUILDER APPRENTICE MK[facility] pH 6.0 5.0 - 8.0 03/12/2021 6:56 AM BODY BUILDER APPRENTICE MK[facility] Specific [place] 1.016 1.001 - 1.035 03/12/2021 6:56 AM BODY BUILDER APPRENTICE MK[facility] Urobilinogen 1.0 0.2 - 1.0 mg/dL 03/12/2021 6:56 AM CS T MK[facility] Specimen Anatomical Collection Method Collection Time Receive d Time (Source) Location / / Volume Laterality Urine (Urine, 03/12/2021 6:23 AM 03/12/20 6:47 Clean Catch) BODY BUILDER APPRENTICE AM BODY BUILDER APPRENTICE Nunu Sanches P.A.-C., M.S. LAB URINE ORDERABLES Performing Organization Address City/State/ZIP Code Phon e Number [facility]- [facility] [place] [address] [place] [address] System in [place] [address] [facility] (ABNORMAL) Drug Screen Urine (03/12/2021 6:23 AM BODY BUILDER APPRENTICE) athologist Signature Amphetamines, Negative Negative 03/12/2021 MK[facility] U 7:18 AM BODY BUILDER APPRENTICE Comment: ----ADDITIONAL INFORMATION---- Casing Crew Pusher's Cutoff: 500 ng/mL Barbiturates, U Negative Negative 03/12/2021 7:18 AM BODY BUILDER APPRENTICE M KTO Comment: ----ADDITIONAL INFORMATION---- Casing [employer] Pusher's Cutoff: 200 ng/mL Benzodiazepines, U Negative Negative 03/12/2021 7:18 AM CS T MKTO Comment: ----ADDITIONAL INFORMATION---- Casing Crew Pusher's Cutoff: 150 ng/mL Buprenorphine, U Negative Negative 03/12/2021 7:18 AM BODY BUILDER APPRENTICE MKTO Comment: ----ADDITIONAL INFORMATION---- Casing Crew Pusher's Cutoff: 10 ng/mL Cocaine, U Negative Negative 03/12/2021 7:18 AM BODY BUILDER APPRENTICE MKTO Comment: ----ADDITIONAL INFORMATION---- Casing Crew Pusher's Cutoff: 150 ng/mL Methadone, U Negative Negative 03/12/2021 7:18 AM BODY BUILDER APPRENTICE MKTO Comment: ----ADDITIONAL INFORMATION---- Casing Crew Pusher's Cutoff: 200 ng/mL Methamphetamines, U Negative Negative 03/12/2021 7:[address] [facility] Comment: ----ADDITIONAL INFORMATION---- Casing Crew Pusher's Cutoff: 500 ng/mL Opiates, U Negative Negative 03/12/2021 7:18 AM BODY BUILDER APPRENTICE MK[facility] Comment: ----ADDITIONAL INFORMATION---- Casing Crew Pusher's Cutoff: 100 ng/mL Oxycodone, U Unconfirmed Positive (A) Negative 03/12/2021 7 :18 AM BODY BUILDER APPRENTICE MKTO Comment: ----ADDITIONAL INFORMATION---- Casing Crew Pusher's Cutoff: 100 ng/mL Phencyclidine, U Negative Negative 03/12/2021 7:18 AM BODY BUILDER APPRENTICE MKTO Comment: ----ADDITIONAL INFORMATION---- Casing Crew Pusher's Cutoff: 25 ng/mL Propoxyphene, U Negative Negative 03/12/2021 7:18 AM BODY BUILDER APPRENTICE M KTO Comment: ----ADDITIONAL INFORMATION---- Casing Crew Pusher's Cutoff: 300 ng/mL Tetrahydrocannabinol, U Unconfirmed Positive Negative 03/12 7:18 AM MK[facility] (A) BODY BUILDER APPRENTICE Comment: ----ADDITIONAL INFORMATION---- Casing Crew Pusher's Cutoff: 50 ng/mL Tricyclic Antidepressants, U Negative Negative 03/12/2021 7:18 AM BODY BUILDER APPRENTICE MKTO Comment: ----ADDITIONAL INFORMATION---- Casing Crew Pusher's Cutoff: 300 ng/mL THE ABOVE DRUG SCREEN PANEL IS FOR MED ICAL PURPOSES ONLY Specimen Anatomical Collection Method Collection Time Receive d Time (Source) Location / / Volume Laterality Urine (Urine, 03/12/2021 6:23 AM 03/12/20 6:47 Clean Catch) BODY BUILDER APPRENTICE AM BODY BUILDER APPRENTICE Nunu Sanches P.A.-C., M.S. LAB URINE ORDERABLES Performing Organization Address City/[facility] Phon e Number [facility]- [address] [place] [address] [place] [address] System in [address] HCV Ab w/Reflex to HCV PCR, Serum (03/12/2021 5:58 AM BODY BUILDER APPRENTICE) [facility], S Negative Negative 03/13/[address] [facility] 9:25 AM BODY BUILDER APPRENTICE Comment: Dphqqp-bs-[id number] ratio is <1.00 . Specimen (Source) Anatomical Collection Method Collection Time Re ceived Time Location / / Volume Laterality Blood (Blood, 03/12/2021 5:58 03/13/2021 7:17 Peripheral Draw) AM BODY BUILDER APPRENTICE AM BODY BUILDER APPRENTICE Ivan Lazo D.O. LAB MICROBIOLOGY - BLOOD ORD ERABLES Performing Organization Address City/State/ZIP Code Phon e Number [facility] [place] [address] [place] [address] SUPPORT CENTER [facility] [place] [address] Laboratory Medicine and Pathology [address] [place] Hepatitis A IgM Ab, Serum (03/12/2021 5:58 AM BODY BUILDER APPRENTICE) athologist Signature Hepatitis A Negative Negative 03/13/[address] [facility] IgM Ab, S 9:50 AM BODY BUILDER APPRENTICE Comment: Result does not exclude the possibility of exposure to hepatitis A virus. ??Antibody level duri ng early infection stage may be below the limit of detectio n of the assay. Specimen (Source) Anatomical Collection Method Collection Time Re ceived Time Location / / Volume Laterality Blood (Blood, 03/12/2021 5:58 03/13/2021 7:18 Peripheral Draw) AM BODY BUILDER APPRENTICE AM BODY BUILDER APPRENTICE Ivan Lazo D.O. LAB MICROBIOLOGY - BLOOD ORD ERABLES Performing Organization Address City/[facility]/ZIP Code Phon e Number [facility] [address] [place] [address] SUPPORT CENTER [facility] [place] [address] Laboratory Medicine and Pathology [address] [place] [address] Dr. CHAPPELL Hepatitis B Core IgM Ab (03/12/2021 5:58 AM BODY BUILDER APPRENTICE) athologist Signature HBc IgM Ab, S Negative Negative 03/13/[address] [facility] 9:12 AM BODY BUILDER APPRENTICE Specimen (Source) Anatomical Collection Method Collection Time Re ceived Time Location / / Volume Laterality Blood (Blood, 03/12/2021 5:58 03/13/2021 7:17 Peripheral Draw) AM BODY BUILDER APPRENTICE AM BODY BUILDER APPRENTICE Ivan Lazo D.O. LAB MICROBIOLOGY - BLOOD ORD ERABLES Performing Organization Address City/State/ZIP Code Phon e Number [facility] [address] [place] [address] SUPPORT [facility] [place] [address] Laboratory Medicine and Pathology [address] [place] [address] Dr. CHAPPELL Hepatitis B Surface Antigen (03/12/2021 5:58 AM BODY BUILDER APPRENTICE) [facility] gist Method Time Signature HBs Antigen, Nonreactive Nonreactive 03/12/2021 MKTO S 7:43 AM BODY BUILDER APPRENTICE Comment: Biotin has been identified by the [facility] as a potential interfering substance. ??Higher concentr ations of biotin may be found in multivitamins, hair/nail supple ments, and workout supplements. ??If the result does not ma [facility] clinical observations, repeat testing after patient refrains fr om the use of supplements for at least 12 hours. Specimen (Source) Anatomical Collection Method Collection Time Re ceived Time Location / / Volume Laterality Blood (Blood, 03/12/2021 5:58 03/12/2021 6:10 Peripheral Draw) AM BODY BUILDER APPRENTICE AM BODY BUILDER APPRENTICE Ivan Lazo D.O. LAB MICROBIOLOGY - BLOOD ORD ERABLES Performing Organization Address City/[facility]/ZIP Code Phon e Number [facility]- [address] [place] [phone] [place] [address] (ABNORMAL) Ammonia (03/12/2021 5:58 AM BODY BUILDER APPRENTICE) P athologist Signature Ammonia, P 127 (H) <=51 03/12/2021 MKTO mcmol/L 6:33 AM BODY BUILDER APPRENTICE Specimen Anatomical Collection Method Collection Time Receive d Time (Source) Location / / Volume Laterality Blood (Blood, 03/12/2021 5:58 AM 03/12/20 6:09 Venous) BODY BUILDER APPRENTICE AM BODY BUILDER APPRENTICE Ivan Lazo D.O. LAB BLOOD NON ADD-ON Performing Organization Address City/[facility] Code Phon e Number [facility]- [address] [place] [phone] [place] [address] (ABNORMAL) Calcium, Ionized (03/12/2021 5:57 AM BODY BUILDER APPRENTICE) P athologist Signature Calcium, 3.74 (L) 4.65 - 03/12/2021 [facility] Ionized, B 5.30 mg/dL 6:21 AM BODY BUILDER APPRENTICE Specimen Anatomical Collection Method Collection Time Receive d Time (Source) Location / / Volume Laterality Blood 03/12/2021 5:57 AM 6:10 BODY BUILDER APPRENTICE AM BODY BUILDER APPRENTICE Nunu Sanches P.A.-C., M.S. LAB BLOOD NON ADD-ON Performing Organization Address City/[facility]/ZIP [facility] Phon e Number [address] [address] [place] [address] (ABNORMAL) pH (03/12/2021 5:57 AM BODY BUILDER APPRENTICE) P athologist Signature pH 7.63 (H) 7.35 - 7.45 03/12/2021 MK[facility] pH 6:21 AM BODY BUILDER APPRENTICE Specimen Anatomical Collection Method Collection Time Receive d Time (Source) Location / / Volume Laterality Blood 03/12/2021 5:57 AM 6:10 BODY BUILDER APPRENTICE AM BODY BUILDER APPRENTICE Nunu Sanches P.A.-C., M.S. LAB HISTORICAL ORDERS Performing Organization Address City/[facility]/ZIP Code Phon e Number [address] [address] [place] [facility] [place] [phone] System in [address] (ABNORMAL) Lactate, B (03/12/2021 5:57 AM BODY BUILDER APPRENTICE) athologist Signature Lactate, B 5.6 (H) 0.5 - 2.2 03/12/2021 MK[facility] mmol/L 6:21 AM BODY BUILDER APPRENTICE Specimen Anatomical Collection Method Collection Time Receive d Time (Source) Location / / Volume Laterality Blood 03/12/2021 5:57 AM 6:10 BODY BUILDER APPRENTICE AM BODY BUILDER APPRENTICE Nunu Sanches P.A.-C., M.S. LAB BLOOD NON ADD-ON Performing Organization Address City/[facility] Code Phon e Number [address] [address] [place] [address] S-TSH (Thyroid-Stimulating Hormone - Sensitive) (03/12/2021 5:57 AM BODY BUILDER APPRENTICE) athologist Signature TSH, Sensitive 1.1 0.3 - 4.2 03/12/2021 MK[facility] mIU/L 7:44 AM BODY BUILDER APPRENTICE Specimen Anatomical Collection Method Collection Time Receive d Time (Source) Location / / Volume Laterality Blood (Blood, 03/12/2021 5:57 AM 03/12/20 6:10 Venous) BODY BUILDER APPRENTICE AM BODY BUILDER APPRENTICE Nunu Sanches P.A.-C., M.S. LAB BLOOD ADD-ON Performing Organization Address City/[facility]/ZIP Code Phon e Number [address] [address] [place] [address] Salicylate Level (03/12/2021 5:57 AM BODY BUILDER APPRENTICE) P athologist Signature Salicylate, P <0.3 <30.0 mg/dL 03/12/2021 MK[facility] 6:50 AM BODY BUILDER APPRENTICE Specimen Anatomical Collection Method Collection Time Receive d Time (Source) Location / / Volume Laterality Blood (Blood, 03/12/2021 5:57 AM 03/12/20 21 6:10 Venous) BODY BUILDER APPRENTICE AM BODY BUILDER APPRENTICE Nunu Sanches P.A.-C., M.S. LAB BLOOD ADD-ON Performing Organization Address City/[facility] Phon e Number [facility]- [address] [place] [phone] [place] [address] Acetaminophen Level (03/12/2021 5:57 AM BODY BUILDER APPRENTICE) Patholo gist Method Time Signature Acetaminophen, <7 Therapeutic 03/12/2021 [facility] P Range: 10-30 6:50 AM BODY BUILDER APPRENTICE mcg/mL Specimen Anatomical Collection Method Collection Time Receive d Time (Source) Location / / Volume Laterality Blood (Blood, 03/12/2021 5:57 AM 03/12/20 21 6:10 Venous) BODY BUILDER APPRENTICE AM BODY BUILDER APPRENTICE Nunu Sanches P.A.-C., M.S. LAB BLOOD ADD-ON Performing Organization Address City/[facility] Phon e Number [facility]- [address] [place] [address] [place] [address] hCG (Human Chorionic Gonadotropin), Quantitative, (03/12/2021 5:57 AM BODY BUILDER APPRENTICE) athologist Signature HCG, <0.5 <5 IU/L 03/12/2021 MK[facility] Quantitative, 6:55 AM BODY BUILDER APPRENTICE , P Comment: Biotin has been identified by the [facility] as a potential interfering substance. ??Higher concentr ations of biotin may be found in multivitamins, hair/nail supple ments, and workout supplements. ??If the result does not ma [facility] clinical observations, repeat testing after patient refrains fr om the use of supplements for at least 12 hours. Specimen Anatomical Collection Method Collection Time Receive d Time (Source) Location / / Volume Laterality Blood (Blood, 03/12/2021 5:57 AM 03/12/20 21 6:10 Venous) BODY BUILDER APPRENTICE AM BODY BUILDER APPRENTICE Nunu Sanches P.A.-C., M.S. LAB BLOOD ADD-ON Performing Organization Address [facility] Phon e Number [address] [address] [place] [address] [address] Ethanol Level, Serum (03/12/2021 5:57 AM BODY BUILDER APPRENTICE) P athologist Signature Ethanol, P <10 <10 mg/dL 03/12/2021 6:50 MKTO AM BODY BUILDER APPRENTICE Specimen Anatomical Collection Method Collection Time Receive d Time (Source) Location / / Volume Laterality Blood (Blood, 03/12/2021 5:57 AM 03/12/20 21 6:10 Venous) BODY BUILDER APPRENTICE AM BODY BUILDER APPRENTICE Nunu Sanches P.A.-C., M.S. LAB BLOOD NON ADD-ON Performing Organization Address [facility] Phon e Number [address] [address] [place] [address] (ABNORMAL) NT-Pro B-Type Natriuretic Peptide (BNP) (03/12/2021 5:57 AM BODY BUILDER APPRENTICE) P athologist Signature NT-Pro BNP 1032 (H) <=140 pg/mL 03/12/2021 MKTO 7:44 AM BODY BUILDER APPRENTICE Comment: NT-proBNP values less than 300 pg/mL [...] supplements. ??If the result does not ma h clinical observations, repeat testing after patient refrains fr om the use of supplements for at least 12 hours. Specimen Anatomical Collection Method Collection Time Receive d Time (Source) Location / / Volume Laterality Blood (Blood, 03/12/2021 5:57 AM 03/12/20 6:10 Venous) BODY BUILDER APPRENTICE AM BODY BUILDER APPRENTICE Nunu Sanches P.A.-C., M.S. LAB BLOOD ADD-ON Performing Organization Address City/[facility] Phon e Number [facility]- [address] [place] [address] [place] [address] Lipase (03/12/2021 5:57 AM BODY BUILDER APPRENTICE) P athologist Signature Lipase, P 18 13 - 60 U/L 03/12/2021 6:50 MKTO AM BODY BUILDER APPRENTICE Specimen Anatomical Collection Method Collection Time Receive d Time (Source) Location / / Volume Laterality Blood (Blood, 03/12/2021 5:57 AM 03/12/20 6:10 Venous) BODY BUILDER APPRENTICE AM BODY BUILDER APPRENTICE Nunu Sanches P.A.-C., M.S. LAB BLOOD ADD-ON Performing Organization Address City/[facility] Phon e Number [facility]- [address] [place] [address] [place] [address] (ABNORMAL) Prothrombin Time (PT) (03/12/2021 5:57 AM BODY BUILDER APPRENTICE) Patholo gist Method Time Signature Prothrombin 25.3 (H) 9.4 - 12.5 03/12/2021 MKTO Time, P sec 6:26 AM BODY BUILDER APPRENTICE INR 2.2 0.9 - 1.1 03/12/2021 MK[facility] 6:26 AM BODY BUILDER APPRENTICE Comment: ----ADDITIONAL INFORMATION---- Standard intensity warfarin therapeutic range: 2.0 to 3.0 ?? High intensity warfarin therapeutic rang e: 2.5 to 3.5 Specimen Anatomical Collection Method Collection Time Receive d Time (Source) Location / / Volume Laterality Blood (Blood, 03/12/2021 5:57 AM 03/12/20 6:10 Venous) BODY BUILDER APPRENTICE AM BODY BUILDER APPRENTICE Nunu Sanches P.A.-C., M.S. LAB BLOOD ADD-ON Performing Organization Address City/[facility] Phon e Number [address] [address] [place] [address] (ABNORMAL) Phosphorus Inorganic (03/12/2021 5:57 AM BODY BUILDER APPRENTICE) P athologist Signature Phosphorus 1.9 (L) 2.5 - 4.5 03/12/2021 [facility] (Inorganic), P mg/dL 6:58 AM BODY BUILDER APPRENTICE Specimen Anatomical Collection Method Collection Time Receive d Time (Source) Location / / Volume Laterality Blood (Blood, 03/12/2021 5:57 AM 03/12/20 6:10 Venous) BODY BUILDER APPRENTICE AM BODY BUILDER APPRENTICE Nunu Sanches P.A.-C., M.S. LAB BLOOD ADD-ON Performing Organization Address City/[facility] Code Phon e Number [address] [address] [facility] [place] [phone] System in [address] (ABNORMAL) Magnesium (03/12/2021 5:57 AM BODY BUILDER APPRENTICE) P athologist Signature Magnesium, P 1.1 (L) 1.7 - 2.3 03/12/2021 [facility] mg/dL 6:58 AM BODY BUILDER APPRENTICE Specimen Anatomical Collection Method Collection Time Receive d Time (Source) Location / / Volume Laterality Blood (Blood, 03/12/2021 5:57 AM 03/12/20 6:10 Venous) BODY BUILDER APPRENTICE AM BODY BUILDER APPRENTICE Nunu Sanches P.A.-C., M.S. LAB BLOOD ADD-ON Performing Organization Address City/[facility]/ZIP Code Phon e Number [address] [place] [address] [place] [address] System in [place] [address] [facility] (ABNORMAL) Comprehensive Metabolic Panel (03/12/2021 5:57 AM BODY BUILDER APPRENTICE) P athologist Signature Potassium, P 3.0 (L) 3.6 - 5.2 03/12/2021 [facility] mmol/L 6:50 AM BODY BUILDER APPRENTICE Sodium, P 132 (L) 135 - 145 03/12/2021 [facility] mmol/L 6:50 AM BODY BUILDER APPRENTICE Chloride, P 94 (L) 98 - 107 03/12/2021 [facility] mmol/L 6:50 AM BODY BUILDER APPRENTICE Bicarbonate, P 17 (L) 22 - 29 03/12/2021 [facility] mmol/L 6:50 AM BODY BUILDER APPRENTICE Anion Gap, P 21 (H) 7 - 15 03/12/2021 MK[facility] 6:50 AM BODY BUILDER APPRENTICE BUN (Blood Urea 8 6 - 21 03/12/2021 MK[facility] Nitrogen), P mg/dL 6:50 AM BODY BUILDER APPRENTICE Creatinine 0.64 0.59 - 03/12/2021 [facility] 1.04 mg/dL 6:50 AM BODY BUILDER APPRENTICE eGFR-Black/Afri >90 >=60 03/12/2021 MK[facility] can Cambodian mL/min/BSA 6:50 AM BODY BUILDER APPRENTICE Comment: ----ADDITIONAL INFORMATION---- Estimated GFR calculated using the 2009 CKD_EPI creatinine equation. eGFR Non-Black/ >90 >=60 mL/min/BSA 03/12/2021 6:50 AM BODY BUILDER APPRENTICE MKTO Comment: ----ADDITIONAL INFORMATION---- Estimated GFR calculated using the 2009 CKD_EPI creatinine equation. Calcium, Total, P 8.0 (L) 8.6 - 10.0 mg/dL 03/12/2021 6:50 AM BODY BUILDER APPRENTICE MKTO Glucose, P 118 70 - 140 mg/dL 03/12/2021 6:50 AM BODY BUILDER APPRENTICE M KTO Protein, Total, P 5.6 (L) 6.3 - 7.9 g/dL 03/12/2021 6:50 A M BODY BUILDER APPRENTICE MKTO Albumin, P 2.9 (L) 3.5 - 5.0 g/dL 03/12/2021 6:50 AM BODY BUILDER APPRENTICE M KTO Aspartate Aminotransferase 45 (H) 8 - 43 U/L 03/12/2021 6 :50 AM BODY BUILDER APPRENTICE MKTO (AST), P Alkaline Phosphatase, P 126 (H) 35 - 104 U/L 03/12/2021 6: 50 AM BODY BUILDER APPRENTICE MKTO Alanine Aminotransferase 13 7 - 45 U/L 03/12/2021 6:5 0 AM BODY BUILDER APPRENTICE MK[facility] (ALT), P Bilirubin, Total, P 6.6 (H) <=1.2 mg/dL 03/12/2021 6:50 AM BODY BUILDER APPRENTICE MKTO Specimen Anatomical Collection Method Collection Time Receive d Time (Source) Location / / Volume Laterality Blood (Blood, 03/12/2021 5:57 AM 03/12/20 6:10 Venous) BODY BUILDER APPRENTICE AM BODY BUILDER APPRENTICE Nunu Sanches P.A.-C., M.S. LAB BLOOD ADD-ON Performing Organization Address City/State/ZIP Code Phon e Number [facility]- [address] [place] [phone] [place] [address] [place] [address] [address] (ABNORMAL) CBC without Differential (03/12/2021 5:57 AM BODY BUILDER APPRENTICE) [facility] gist Method Time Signature Hemoglobin 7.7 (L) 11.6 - 03/12/2021 [facility] 15.0 g/dL 6:26 AM BODY BUILDER APPRENTICE Hematocrit 22.6 (L) 35.5 - 03/12/2021 MK[facility] 44.9 % 6:26 AM BODY BUILDER APPRENTICE Erythrocytes 2.12 (L) 3.92 - 03/12/2021 MK[facility] 5.13 6:26 AM BODY BUILDER APPRENTICE x10(12)/L MCV 106.6 (H) 78.2 - 03/12/2021 [facility] 97.9 fL 6:26 AM BODY BUILDER APPRENTICE RBC Distrib Width 15.7 12.2 - 03/12/2021 [facility] 16.1 % 6:26 AM BODY BUILDER APPRENTICE Platelet Count 144 (L) 157 - 371 03/12/2021 [facility] x10(9)/L 6:26 AM BODY BUILDER APPRENTICE Leukocytes 12.7 (H) 3.4 - 9.6 03/12/2021 [facility] x10(9)/L 6:26 AM BODY BUILDER APPRENTICE Specimen Anatomical Collection Method Collection Time Receive d Time (Source) Location / / Volume Laterality Blood (Blood, 03/12/2021 5:57 AM 03/12/20 21 6:10 Venous) BODY BUILDER APPRENTICE AM BODY BUILDER APPRENTICE Nunu Sanches P.A.-C., M.S. LAB BLOOD ADD-ON Performing Organization Address City/[facility]/ZIP Code Phon e Number [facility]- [address] [place] [phone] [place] [address] Bacteria / Raudel Culture, Blood #1 (03/12/2021 5:57 AM BODY BUILDER APPRENTICE) Patholo gist Method Time Signature Bacteria/Adriana No growth 03/17/2021 MK[facility] da Culture, after 5 7:05 AM BODY BUILDER APPRENTICE Blood day/s of incubation. Specimen (Source) Anatomical Collection Method Collection Time Re ceived Time Location / / Volume Laterality Blood (Blood, 03/12/2021 5:57 03/12/2021 6:10 Peripheral Draw) AM BODY BUILDER APPRENTICE AM BODY BUILDER APPRENTICE Comment: Specimen Source Site: Blood Nunu Sanches P.A.-C., M.S. LAB MICROBIOLOGY - GENE RAL ORDERABLES Performing Organization Address [facility]/ZIP [facility] Phon e Number [facility]- [address] [place] [phone] [place] [address] Glucose, POCT (03/12/2021 5:48 AM BODY BUILDER APPRENTICE) P athologist Signature Glucose, POCT, 120 70 - 140 03/12/2021 MK[facility] B mg/dL 5:48 AM BODY BUILDER APPRENTICE Specimen Anatomical Collection Method Collection Time Receive d Time (Source) Location / / Volume Laterality Blood 03/12/2021 5:48 AM 7:25 BODY BUILDER APPRENTICE AM BODY BUILDER APPRENTICE Generic [facility] POCT ORDERABLES-MANUAL Performing Organization Address [facility] Phon e Number [facility]- [address] [place] [id number] [place] [address] System in [address] documented in this encounter Visit Diagnoses [...] tablet 650 mg Given 03/19/2021 5:57 PM BODY BUILDER APPRENTICE 650 mg (TYLENOL) 650 mg, oral, Once, On Wed03/19/21 at 1800, For 1 dose albumin human 25 % injection 25 g New Bag 03/19/2021 6:39 AM BODY BUILDER APPRENTICE 25 g 25 g, intravenous, Every 6 hours scheduled, First dose on Wed03/12/21 at 1400, If no infusion rate specified: Administer the 25% solution at 100 mL/hr New Bag 03/19/2021 12:15 AM BODY BUILDER APPRENTICE 25 g New Bag 03/18/2021 6:32 PM BODY BUILDER APPRENTICE 25 g albumin human 5 % injection 12.5 g New 03/12/2021 8:49 AM BODY BUILDER APPRENTICE 12.5 g 12.5 g, intravenous, Every 1 hour, First dose on Wed03/12/21 at 0815, For 2 doses, If no infusion rate specified: Administer the 5% solution at 999 mL/hr or less if ICU/shock, otherwise infuse at 250 mL/hr. New 03/12/2021 8:48 AM BODY BUILDER APPRENTICE 12.5 g albumin human 5 % injection 25 g New Bag 03/13/2021 7:30 PM BODY BUILDER APPRENTICE 25 g 250 mL/hr 25 g, intravenous, Once, On [place] 03/13/21 at 1900, For 1 dose, If no infusion rate specified: Administer the 5% solution at 999 mL/hr or less if ICU/shock, otherwise infuse at 250 mL/hr. calcium chloride in NaCl 0.9% IVPB 1 g New 03/12/2021 2:06 PM BODY BUILDER APPRENTICE 1 g 240 mL/hr 1 g, intravenous, at 240 mL/hr, Administer over 15 Minutes, Once, On Wed03/12/21 at 1245, For 1 dose, Infuse each gram over at least 15 minutes. calcium gluc in NaCl, iso-osm IVPB 2 g New 03/16/2021 5:53 AM BODY BUILDER APPRENTICE 2 g 400 mL/hr 2 g, intravenous, at 400 mL/hr, Administer over 15 Minutes, Once, On Wed03/16/21 at 0530, For 1 dose calcium gluconate in NaCl (iso-osm) New Bag 03/12/2021 8:03 AM BODY BUILDER APPRENTICE 1 g 200 mL/hr IVPB 1 g 1 g, intravenous, at 200 mL/hr, Administer over 15 Minutes, Once, On Wed03/12/21 at 0730, For 1 dose cefTRIAXone injection 1 g (ROCEPHIN) Given 03/19/2021 9:08 AM BODY BUILDER APPRENTICE 1 g 1 g, intravenous, Daily, First dose (after last modification) on Wed03/19/21 at 0900, If needed, reconstitute vial per package insert instructions. See IVAG for administration guidelines. , Drug Monitoring Program: Pharmacist to adjust medication dosing based on indication and drug clearance factors., Indications: sbp prophylaxis cefTRIAXone injection 2 g (ROCEPHIN) Given 03/18/2021 8:48 AM BODY BUILDER APPRENTICE 2 g 2 g, intravenous, Daily, First dose (after last modification) on Wed03/18/21 at 0900, If needed, reconstitute vial per package insert instructions. See IVAG for administration guidelines. , Drug Monitoring Program: Pharmacist to adjust medication dosing based on indication and drug clearance factors., Indications: sbp prophylaxis ciprofloxacin tablet 500 mg (CIPRO) Given 03/24/2021 6:18 AM BODY BUILDER APPRENTICE 500 mg 500 mg, oral, Daily before breakfast, First dose on Wed03/20/21 at 0700, Take 2 hours before or 6 hours after antacids containing magnesium or aluminum, sucralfate, didanosine, polymeric phosphate binders, or products containing calcium, iron, or zinc., Drug Monitoring Program: Pharmacist to adjust medication dosing based on indication and drug clearance factors., Indications: Prophylaxis, medical Given 03/23/2021 6:34 AM BODY BUILDER APPRENTICE 500 mg Given 03/22/2021 7:02 AM BODY BUILDER APPRENTICE 500 mg dexmedeTOMIDine 4 mcg/mL Rate/Dose Change 03/14/2021 9:18 0.2 mcg/k g/hr 2.71 mL/hr in NaCl 0.9% 100 mL AM BODY BUILDER APPRENTICE infusion (PRECEDEX) 0.2-1.5 mcg/kg/hr ? 54.2 kg [...] care unit Rate/Dose Verify 03/14/2021 9:00 AM BODY BUILDER APPRENTICE 0.4 mcg/kg/hr 5.42 mL/hr Rate/Dose Change 03/14/2021 8:53 AM BODY BUILDER APPRENTICE 0.4 mcg/kg/hr 5.42 mL/hr doxycycline 100 mg in NaCl 0.9% New Bag 03/12/2021 9:13 PM BODY BUILDER APPRENTICE 100 mg 100 mL/hr IVPB (VIBRAMYCIN) 100 mg, intravenous, at 100 mL/hr, Administer over 60 Minutes, Every 12 hours scheduled, First dose on Wed03/12/21 at 0900, Mini-Bag Plus bag, Indications: Intra-abdominal infection, community acquired, Respiratory tract infection, healthcare associated New Bag 03/12/2021 8:59 AM BODY BUILDER APPRENTICE 100 mg 100 mL/hr doxycycline 100 mg in NaCl 0.9% New Bag 03/17/2021 8:44 PM BODY BUILDER APPRENTICE 100 mg 100 mL/hr IVPB (VIBRAMYCIN) 100 mg, intravenous, at 100 mL/hr, Administer over 60 Minutes, Every 12 hours scheduled, First dose (after last modification) on [place] 03/13/21 at 0900, For 5 days, Mini-Bag Plus bag, Indications: Intra-abdominal infection, community acquired, Respiratory tract infection, healthcare associated New Bag 03/17/2021 11:08 AM BODY BUILDER APPRENTICE 100 mg 100 mL/hr New Bag 03/16/2021 8:38 PM BODY BUILDER APPRENTICE 100 mg 100 mL/hr folic acid tablet 1 mg Given 03/24/2021 8:52 AM BODY BUILDER APPRENTICE 1 mg 1 mg, oral, Daily, First dose on [place] 03/13/21 at 1230 Given 03/23/2021 8:10 AM BODY BUILDER APPRENTICE 1 mg Given 03/22/2021 10:22 AM BODY BUILDER APPRENTICE 1 mg furosemide injection 20 mg (LASIX) Given 03/19/2021 9:08 AM BODY BUILDER APPRENTICE 20 mg 20 mg, intravenous, Every 24 hours scheduled, First dose on Wed03/14/21 at 1230, Adults: Doses less than 120 mg: IV push over 20 mg/minute. Doses 120 mg or greater: IVPB at 4 mg/minute. Peds/Neonates: Doses less than 120 mg over 0.5 mg/kg/minute. Doses 120 mg or greater: IVPB at 4 mg/minute. Given 03/18/2021 8:49 AM BODY BUILDER APPRENTICE 20 mg Given 03/17/2021 10:48 AM BODY BUILDER APPRENTICE 20 mg furosemide tablet 20 mg (LASIX) Given 03/24/2021 8:52 AM BODY BUILDER APPRENTICE 20 mg 20 mg, oral, Daily, First dose on [place] 03/20/21 at 0900 Given 03/23/2021 8:10 AM BODY BUILDER APPRENTICE 20 mg Given 03/22/2021 10:22 AM BODY BUILDER APPRENTICE 20 mg heparin (porcine) Given 03/15/2021 5:35 AM BODY BUILDER APPRENTICE 5,000 Units Left Upper Arm injection 5,000 Units (Back) 5,000 Units, subcutaneous, Every 8 hours scheduled, First dose on Wed03/12/21 at 0645 Given 03/14/2021 8:40 PM BODY BUILDER APPRENTICE 5,000 Units Left Upper Arm (Back) Given 03/14/2021 2:51 PM BODY BUILDER APPRENTICE 5,000 Units Right Lower Abdomen iohexoL 300 mg iodine/mL solution 1-200 mL Given 03/12/2021 1:50 PM BODY BUILDER APPRENTICE 100 mL (OMNIPAQUE) 1-200 mL, intravenous, Once in imaging, contrast, Starting on Wed03/12/21 at 1346, For 1 dose, Dose per Radiant Medication Guidelines iohexoL 300 mg iodine/mL solution 1-200 mL Given 03/16/2021 2:37 AM BODY BUILDER APPRENTICE 100 mL (OMNIPAQUE) 1-200 mL, intravenous, Once in imaging, contrast, for Ct exam, Starting on Wed03/16/21 at 0230, For 1 dose, Dose per Radiant Medication Guidelines ketamine injection (KETALAR) Given 03/12/2021 9:42 AM BODY BUILDER APPRENTICE 30 mg Code/trauma/sedation medication, Starting on Wed03/12/21 at 0942 ketamine injection 60 mg (KETALAR) Given 03/12/2021 9:12 AM BODY BUILDER APPRENTICE 20 mg 60 mg, intravenous, Once, On Wed03/12/21 at 0845, For 1 dose Given 03/12/2021 8:50 AM BODY BUILDER APPRENTICE 20 mg lactulose (CHRONULAC) 200 g in sterile Given 03/12/2021 8:18 AM BODY BUILDER APPRENTICE 1,000 mL water 1,000 mL enema 1,000 mL, rectal, Once, On Wed03/12/21 at 0615, For 1 dose, Total dose= 1000 mL; Instill ~ 300 mL at a time, and retain for 15-20 minutes each Rectal Use Only. Refrigerate. PROTECT FROM LIGHT. lactulose solution 30 g (CHRONULAC) Given 03/24/2021 8:52 AM BODY BUILDER APPRENTICE 30 g 30 g, gastric tube, 3 times daily, First dose on Wed03/12/21 at 1400, Aim for 500 cc stool in 24 hours or 3-4 loose bowel movements per day Given 03/23/2021 9:49 PM BODY BUILDER APPRENTICE 30 g Given 03/23/2021 2:04 PM BODY BUILDER APPRENTICE 30 g LORazepam injection 1 mg (ATIVAN) 1 mg, intravenous, Every 4 hours PRN, [facility], Starting on [place] 03/20/21 at 2120, For intravenous use, dilute with equal volume of 0.9% NS magnesium oxide tablet 400 mg (MAG-OX) Given 03/24/2021 6:18 AM BODY BUILDER APPRENTICE 400 mg 400 mg, oral, 2 times daily before breakfast and dinner, First dose on 03/23/21 at 0700 Given 03/23/2021 3:41 PM BODY BUILDER APPRENTICE 400 mg Given 03/23/2021 6:34 AM BODY BUILDER APPRENTICE 400 mg magnesium sulfate in D5W IVPB 1 g New Bag 03/15/2021 6:10 PM BODY BUILDER APPRENTICE 1 g 100 mL/hr 1 g, intravenous, at 100 mL/hr, Administer over 60 Minutes, Once, On 03/15/21 at 1800, For 1 dose, Over 1 hours. , Monitor the following for replacement: Magnesium magnesium sulfate in water IVPB 2 g New Bag 03/12/2021 8:03 AM BODY BUILDER APPRENTICE 2 g 25 mL/hr 2 g, intravenous, at 25 mL/hr, Administer over 120 Minutes, Once, On Wed03/12/21 at 0715, For 1 dose magnesium sulfate in water IVPB 2 g New Bag 03/15/2021 5:26 AM BODY BUILDER APPRENTICE 2 g 25 mL/hr 2 g, intravenous, at 25 mL/hr, Administer over 120 Minutes, Once, On Wed03/15/21 at 0600, For 1 dose magnesium sulfate in water IVPB 2 g New Bag 03/16/2021 5:08 AM BODY BUILDER APPRENTICE 2 g 25 mL/hr 2 g, intravenous, at 25 mL/hr, Administer over 120 Minutes, Once, On Wed03/16/21 at 0500, For 1 dose magnesium sulfate in New Bag 03/22/2021 4:18 PM BODY BUILDER APPRENTICE 2 g 25 mL/hr Right Antecubital water IVPB 2 g 2 g, intravenous, at 25 mL/hr, Administer over 120 Minutes, Once, On Wed03/22/21 at 1530, For 1 dose magnesium sulfate in water IVPB Rate/Dose Change 03/12/2021 4:02 PM BODY BUILDER APPRENTICE 50 mL/hr 4 g 4 g, intravenous, at 25 mL/hr, Administer over 240 Minutes, Once, On Wed03/12/21 at 1345, For 1 dose New 03/12/2021 2:27 PM BODY BUILDER APPRENTICE 4 g 25 mL/hr magnesium sulfate in water IVPB 4 g New 03/19/2021 3:40 PM BODY BUILDER APPRENTICE 4 g 25 mL/hr 4 g, intravenous, at 25 mL/hr, Administer over 240 Minutes, Once, On Wed03/19/21 at 1000, For 1 dose, Over 4 hours. melatonin tablet 3 mg Given 03/17/2021 2:30 AM BODY BUILDER APPRENTICE 3 mg 3 mg, oral, Once, On Wed03/17/21 at 0230, For 1 dose melatonin tablet 6 mg Given 03/23/2021 9:49 PM BODY BUILDER APPRENTICE 6 mg 6 mg, oral, Daily at bedtime, First dose (after last modification) on Wed03/17/21 at 2100 Given 03/23/2021 12:19 AM BODY BUILDER APPRENTICE 6 mg Given 03/22/2021 12:48 AM BODY BUILDER APPRENTICE 6 mg multivitamin (Adult MVI) 10 mL in NaCl New Bag 03/15/2021 8:06 AM BODY BUILDER APPRENTICE 255 mL/hr 0.9% 500 mL IVPB intravenous, at 255 mL/hr, Administer over 2 Hours, Daily, First dose on Wed03/13/21 at 0900, For 3 days, Protect from light. New Bag 03/14/2021 8:15 AM BODY BUILDER APPRENTICE 255 mL/hr New Bag 03/13/2021 9:40 AM BODY BUILDER APPRENTICE 255 mL/hr NaCl 0.9% infusion Rate/Dose Verify 03/16/2021 12:00 AM 20 mL/hr 20 mL/hr 20-500 mL/hr, intravenous, BODY BUILDER APPRENTICE Once as needed, Between Units of Blood Products, Starting on Wed03/15/21 at 1218, For 1 dose, Infuse at the same rate as the blood infusion until tubing cleared. Nurse may reduce rate to 20 mL/hour or as otherwise directed until next blood infusion arrives then discontinue when infusion complete. Rate/Dose Verify 03/15/2021 9:00 PM BODY BUILDER APPRENTICE 20 mL/hr 20 mL/hr Rate/Dose Verify 03/15/2021 8:00 PM BODY BUILDER APPRENTICE 20 mL/hr 20 mL/hr naloxone injection 0.2 [...] mL/hr mcg/mL in D5W 250 mL AM BODY BUILDER APPRENTICE infusion 0-0.3 mcg/kg/min ? 54.2 kg Dosing weight (0-60.975 mL/hr, rounded to 0-60.98 mL/hr), intravenous, Continuous, Starting on Wed03/12/21 at 1100, Protect from light and avoid extravasation, Patient Type: Sepsis, Initiate at: 0.05 mcg/kg/min, Titrate at: 0.05 mcg/kg/min. every 5 min., Wean at: 0.01 mcg/kg/min. every 5 min., Goal: Other, Goal: MAP 60-65 New Bag 03/14/2021 10:03 PM BODY BUILDER APPRENTICE 0.01 mcg/kg/min 2.03 mL/hr Rate/Dose Change 03/13/2021 12:23 PM BODY BUILDER APPRENTICE 0.02 mcg/kg/min 4.07 mL/hr norepinephrine 16 mcg/mL in NaCl Rate/Dose 03/12/2021 0.07 14. 2 0.9% 250 mL infusion Change 10:01 AM BODY BUILDER APPRENTICE mcg/kg/min mL/hr Code/trauma/sedation continuous med, Starting on Wed03/12/21 at 0942 Rate/Dose Change 03/12/2021 9:53 AM BODY BUILDER APPRENTICE 0.08 mcg/kg/min 16.3 mL/hr Rate/Dose Change 03/12/2021 9:45 AM BODY BUILDER APPRENTICE 0.1 mcg/kg/min 20.3 mL/hr octreotide 2 mcg/mL in Rate/Dose Verify 03/13/2021 8:00 AM 25 mcg/hr 12.5 mL/hr NaCl 0.9% 250 mL infusion BODY BUILDER APPRENTICE (SandoSTATIN) 25 mcg/hr (12.5 mL/hr), intravenous, Continuous, Starting on Wed03/12/21 at 1000, Protect from light. Rate/Dose Verify 03/13/2021 7:00 AM BODY BUILDER APPRENTICE 25 mcg/hr 12.5 mL/hr Rate/Dose Verify 03/13/2021 6:00 AM BODY BUILDER APPRENTICE 25 mcg/hr 12.5 mL/hr octreotide 2 mcg/mL in Rate/Dose Verify 03/16/2021 9:00 AM 25 mcg/hr 12.5 mL/hr NaCl 0.9% 250 mL infusion BODY BUILDER APPRENTICE (SandoSTATIN) 25 mcg/hr (12.5 mL/hr), intravenous, Continuous, Starting on Wed03/13/21 at 0845, For 72 hours, Protect from light. Rate/Dose Verify 03/16/2021 8:00 AM BODY BUILDER APPRENTICE 25 mcg/hr 12.5 mL/hr Rate/Dose Verify 03/16/2021 7:00 AM BODY BUILDER APPRENTICE 25 mcg/hr 12.5 mL/hr OLANZapine tablet 5 mg (ZyPREXA) Given 03/18/2021 9:29 PM BODY BUILDER APPRENTICE 5 mg 5 mg, oral, Daily at bedtime, First dose on Wed03/18/21 at 1730 OLANZapine tablet 5 mg (ZyPREXA) Given 03/22/2021 12:48 AM BODY BUILDER APPRENTICE 5 mg 5 mg, oral, Bedtime PRN, sleep, anxiety, Starting on Wed03/19/21 at 1830 Given 03/21/2021 1:11 AM BODY BUILDER APPRENTICE 5 mg oxyCODONE IR tablet 5 mg (ROXICODONE) Given 03/21/2021 3:28 AM BODY BUILDER APPRENTICE 5 mg 5 mg, oral, Every 4 hours PRN, moderate pain or score 4-6 of 10, severe pain or score 7-10 of 10, Starting on Wed03/14/21 at 1957 Given 03/20/2021 1:56 AM BODY BUILDER APPRENTICE 5 mg Given 03/16/2021 4:23 AM BODY BUILDER APPRENTICE 5 mg oxyCODONE IR tablet 5 mg (ROXICODONE) Given 03/22/2021 7:02 AM BODY BUILDER APPRENTICE 5 mg 5 mg, oral, Once as needed, moderate pain or score 4-6 of 10, severe pain or score 7-10 of 10, Starting on Wed03/22/21 at 0354, For [address] tablet 40 mg (PROTONIX) Given 03/24/2021 8:52 AM BODY BUILDER APPRENTICE 40 mg 40 mg, oral, 2 times daily, First dose on Wed03/19/21 at 2100, Swallow whole. Do NOT crush, chew, or split tablet. Given 03/23/2021 9:49 PM BODY BUILDER APPRENTICE 40 mg Given 03/23/2021 8:09 AM BODY BUILDER APPRENTICE 40 mg pantoprazole injection 40 mg (PROTONIX) Given 03/12/2021 8:49 AM BODY BUILDER APPRENTICE 40 mg 40 mg, intravenous, Every 24 hours scheduled, First dose on Wed03/12/21 at 0900, Administer IV push over 2 minutes. Add 10 mL NS to 40 mg vial for a final concentration of 4 mg/mL. pantoprazole injection 40 mg (PROTONIX) Given 03/19/2021 9:08 AM BODY BUILDER APPRENTICE 40 mg 40 mg, intravenous, Every 12 hours scheduled, First dose (after last modification) on Wed03/12/21 at 2100, Administer IV push over 2 minutes. Add 10 mL NS to 40 mg vial for a final concentration of 4 mg/mL. Given 03/18/2021 8:49 AM BODY BUILDER APPRENTICE 40 mg Given 03/17/2021 8:34 PM BODY BUILDER APPRENTICE 40 mg phenylephrine injection Given 03/12/2021 9:46 AM BODY BUILDER APPRENTICE 100 mcg Code/trauma/sedation medication, Starting on Wed03/12/21 at 0946 phytonadione (vitamin K1) 10 mg in New Bag 03/16/2021 8:30 AM BODY BUILDER APPRENTICE 10 mg 51 mL/hr NaCl 0.9% IVPB (AQUA-MEPHYTON) 10 mg, intravenous, at 51 mL/hr, Administer over 60 Minutes, Daily, First dose on Wed03/14/21 at 1045, For 3 doses, Protect from light. New Bag 03/15/2021 9:18 AM BODY BUILDER APPRENTICE 10 mg 51 mL/hr New Bag 03/14/2021 11:34 AM BODY BUILDER APPRENTICE 10 mg 51 mL/hr phytonadione (vitamin K1) 10 mg in New Bag 03/16/2021 8:15 AM BODY BUILDER APPRENTICE 10 mg 51 mL/hr NaCl 0.9% IVPB (AQUA-MEPHYTON) 10 mg, intravenous, at 51 mL/hr, Administer over 60 Minutes, Once, On 03/16/21 at 0800, For 1 dose, Protect from light. phytonadione (vitamin K1) tablet 10 mg Given 03/23/2021 11:11 AM BODY BUILDER APPRENTICE 10 mg (MEPHYTON) 10 mg, oral, Once, On 03/23/21 at 1045, For 1 dose phytonadione (vitamin K1) tablet 5 mg Given 03/21/2021 8:[address] 5 mg (MEPHYTON) 5 mg, oral, Daily, First dose on Wed03/19/21 at 1300, For 3 doses Given 03/20/2021 10:15 AM BODY BUILDER APPRENTICE 5 mg Given 03/19/2021 1:56 PM BODY BUILDER APPRENTICE 5 mg phytonadione (vitamin K1) tablet 5 mg Given 03/22/2021 10:22 AM BODY BUILDER APPRENTICE 5 mg (MEPHYTON) 5 mg, oral, Daily, First dose (after last reorder) on 03/22/21 at 0900, For 3 doses piperacillin-tazobactam in dextrose New Bag 03/13/2021 5:34 AM BODY BUILDER APPRENTICE 3.375 g 100 mL/hr (iso-osm) IVPB 3.375 g (ZOSYN) 3.375 g, intravenous, at 100 mL/hr, Administer over 0.5 Hours, Every 6 hours scheduled, First dose on Wed03/12/21 at 0815, Drug Monitoring Program: Pharmacist to adjust medication dosing based on indication and drug clearance factors., Indications: Intra-abdominal infection, community acquired New Bag 03/12/2021 11:36 PM BODY BUILDER APPRENTICE 3.375 g 100 mL/hr New Bag 03/12/2021 6:14 PM BODY BUILDER APPRENTICE 3.375 g 100 mL/hr piperacillin-tazobactam in dextrose New Bag 03/17/2021 11:49 P M 3.375 g 100 mL/hr (iso-osm) IVPB 3.375 g (ZOSYN) BODY BUILDER APPRENTICE 3.375 g, intravenous, at 100 mL/hr, Administer over 0.5 Hours, Every 6 hours scheduled, First dose (after last modification) on [place] 03/13/21 at 1200, For 19 doses, Drug Monitoring Program: Pharmacist to adjust medication dosing based on indication and drug clearance factors., Indications: Intra-abdominal infection, community acquired New Bag 03/17/2021 6:25 PM BODY BUILDER APPRENTICE 3.375 g 100 mL/hr New Bag 03/17/2021 1:09 PM BODY BUILDER APPRENTICE 3.375 g 100 mL/hr potassium chloride ER [...] tablet 40 mEq Given 03/22/2021 4:19 PM BODY BUILDER APPRENTICE 40 mEq (KLORCON/K-TAB) 40 mEq, oral, Once, On 03/22/21 at 1415, For 1 dose, Swallow whole. Do NOT crush, chew, or split tablet. potassium chloride ER tablet 40 mEq Given 03/23/2021 8:09 AM BODY BUILDER APPRENTICE 40 mEq (KLORCON/K-TAB) 40 mEq, oral, Once, On 03/23/21 at 0800, For 1 dose, For K 3-3.4 mEq/L - give total of 40 mEq Swallow whole. Do NOT crush, chew, or split tablet., Monitor the following for replacement: Potassium, Replace Potassium per: Standard Schedule potassium chloride ER tablet 60 mEq Given 03/19/2021 10:48 AM CS T 60 mEq (KLORCON/K-TAB) 60 mEq, oral, Once, On 03/19/21 at 1000, For 1 dose, For K<3.0-3.2 mEq/L - give total of 60 mEq Swallow whole. Do NOT crush, chew, or split tablet., Monitor the following for replacement: Potassium, Replace Potassium per: Standard Schedule potassium chloride IVPB 10 mEq New Bag 03/12/2021 9:15 AM BODY BUILDER APPRENTICE 10 mEq 100 mL/hr 10 mEq, intravenous, at 100 mL/hr, Administer over 60 Minutes, Every 1 hour, First dose on Wed03/12/21 at 0715, For 2 doses, Peripheral Line: 10 mEq per bag over 1 hour each. New Bag 03/12/2021 8:03 AM BODY BUILDER APPRENTICE 10 mEq 100 mL/hr potassium chloride IVPB 10 mEq New Bag 03/14/2021 9:16 AM BODY BUILDER APPRENTICE 10 mEq 100 mL/hr 10 mEq, intravenous, at 100 mL/hr, Administer over 60 Minutes, Every 1 hour, First dose on Wed03/14/21 at 0730, For 3 doses, Peripheral Line: 10 mEq per bag over 1 hour each. New Bag 03/14/2021 9:13 AM BODY BUILDER APPRENTICE 10 mEq 100 mL/hr New Bag 03/14/2021 8:10 AM BODY BUILDER APPRENTICE 10 mEq 100 mL/hr potassium chloride IVPB 10 mEq New Bag 03/18/2021 4:59 PM BODY BUILDER APPRENTICE 10 mEq 100 mL/hr 10 mEq, intravenous, at 100 mL/hr, Administer over 60 Minutes, Every 1 hour, First dose on Wed03/18/21 at 1200, For 4 doses, Peripheral Line: 10 mEq per bag over 1 hour each. New Bag 03/18/2021 3:41 PM BODY BUILDER APPRENTICE 10 mEq 100 mL/hr New 03/18/2021 2:28 PM BODY BUILDER APPRENTICE 10 mEq 100 mL/hr potassium chloride IVPB 20 mEq in New Bag 03/12/2021 9:[address] 20 mEq 100 mL/hr 100 mL (premix) 20 mEq, intravenous, at 100 mL/hr, Administer over 60 Minutes, Every 1 hour, First dose on Wed03/12/21 at 1900, For 3 doses, Central Line with Telemetry: 20 mEq per bag over 1 hour each. New Bag 03/12/2021 8:08 PM BODY BUILDER APPRENTICE 20 mEq 100 mL/hr New Bag 03/12/2021 6:57 PM BODY BUILDER APPRENTICE 20 mEq 100 mL/hr potassium chloride IVPB 20 mEq in New Bag 03/13/2021 3:[address] 20 mEq 100 mL/hr 100 mL (premix) 20 mEq, intravenous, at 100 mL/hr, Administer over 60 Minutes, Every 1 hour, First dose on Wed03/13/21 at 0300, For 2 doses, Central Line with Telemetry: 20 mEq per bag over 1 hour each. New Bag 03/13/2021 2:13 AM BODY BUILDER APPRENTICE 20 mEq 100 mL/hr potassium chloride IVPB 20 mEq in New Bag 03/15/2021 8:[address] 20 mEq 100 mL/hr 100 mL (premix) 20 mEq, intravenous, at 100 mL/hr, Administer over 60 Minutes, Every 1 hour, First dose on [facility] 03/15/21 at 0600, For 4 doses, Central Line with Telemetry: 20 mEq per bag over 1 hour each. New Bag 03/15/2021 7:26 AM BODY BUILDER APPRENTICE 20 mEq 100 mL/hr New Bag 03/15/2021 6:28 AM BODY BUILDER APPRENTICE 20 mEq 100 mL/hr potassium chloride IVPB 20 mEq in New Bag 03/15/2021 7:[address] 20 mEq 100 mL/hr 100 mL (premix) 20 mEq, intravenous, at 100 mL/hr, Administer over 60 Minutes, Every 1 hour, First dose on [facility] 03/15/21 at 1700, For 3 doses, For K 3.0-3.2 mEq/L - give total of 60 mEq, Monitor the following for replacement: Potassium, Replace Potassium per: Standard Schedule Bag 03/15/2021 6:08 PM BODY BUILDER APPRENTICE 20 mEq 100 mL/hr New Bag 03/15/2021 5:03 PM BODY BUILDER APPRENTICE 20 mEq 100 mL/hr potassium chloride IVPB 20 mEq in New Bag 03/16/2021 5:[address] 20 mEq 100 mL/hr 100 mL (premix) 20 mEq, intravenous, at 100 mL/hr, Administer over 60 Minutes, Every 1 hour, First dose on [place] 03/16/21 at 0500, For 1 dose, Central Line with Telemetry: 20 mEq per bag over 1 hour each. potassium chloride packet 40 mEq (KLOR-C ON) Given 03/13/2021 2:13 AM BODY BUILDER APPRENTICE 40 mEq 40 mEq, oral, Once, On [place] 03/13/21 at 0215, For 1 dose, Dissolve one packet in 4-5 ounces of water or other beverage prior to administration. potassium phosphate in NaCl Rate/Dose Verify 03/15/2021 7:00 AM BODY BUILDER APPRENTICE 83.3 mL/hr 0.9% IVPB 15 mmol 15 mmol, intravenous, at 83.3 mL/hr, Administer over 3 Hours, Once, On Wed03/15/21 at 0600, For 1 dose New Bag 03/15/2021 6:11 AM BODY BUILDER APPRENTICE 15 mmol 83.3 mL/hr potassium phosphate in NaCl Rate/Dose Verify 03/15/2021 8:00 PM BODY BUILDER APPRENTICE 83.3 mL/hr 0.9% IVPB 15 mmol 15 mmol (rounded from 13.55 mmol = 0.25 mmol/kg ? 54.2 kg Dosing weight), intravenous, at 83.3 mL/hr, Administer over 3 Hours, Once, On Wed03/15/21 at 1800, For 1 dose, Monitor the following for replacement: Phosphorus New Bag 03/15/2021 6:17 PM BODY BUILDER APPRENTICE 15 mmol 83.3 mL/hr potassium phosphate in NaCl Rate/Dose Verify 03/16/2021 9:00 AM BODY BUILDER APPRENTICE 83.3 mL/hr 0.9% IVPB 15 mmol 15 mmol, intravenous, at 83.3 mL/hr, Administer over 3 Hours, Every 3 hours, First dose (after last modification) on Wed03/16/21 at 0500, For 2 doses New Bag 03/16/2021 8:13 AM BODY BUILDER APPRENTICE 15 mmol 83.3 mL/hr Rate/Dose Verify 03/16/2021 8:00 AM BODY BUILDER APPRENTICE 83.3 mL/hr potassium phosphates 30 mmol in New Bag 03/12/2021 10:50 AM CS T 30 mmol 85 mL/hr NaCl 0.9% IVPB 30 mmol, intravenous, at 85 mL/hr, Administer over 6 Hours, Once, On Wed03/12/21 at 0715, For 1 dose, Peripheral or central line. [id number] 280-160-250 mg Given 2020 9:40 PM BODY BUILDER APPRENTICE 2 packets per packet 2 packet (PHOS-NAK) 2 packet, oral, Every 4 hours while awake, First dose on Wed03/19/21 at 1000, For 4 doses, Monitor the following for replacement: Phosphorus Given 03/19/2021 5:57 PM BODY BUILDER APPRENTICE 2 packets Given 03/19/2021 3:09 PM BODY BUILDER APPRENTICE 2 packets propofoL (DIPRIVAN) 10 mg/mL injection - ADS Override Pull Starting on Wed03/12/21 at 0923, For 1 dose, Created by cabinet override propofol 10 mg/mL Rate/Dose Verify 03/14/2021 6:00 25 mcg/kg/min 8.13 mL/hr infusion (DIPRIVAN) AM BODY BUILDER APPRENTICE 5-80 mcg/kg/min ? 54.2 kg Dosing weight (1.626-26.016 mL/hr, rounded to 1.63-26.02 mL/hr), intravenous, Continuous, Starting on Wed03/12/21 at 1100, Type: Titrate, Initiate at: 5 mcg/kg/min., Titrate at: 5 mcg/kg/min. every 5 min., Goal: Other, Goal: RASS -2 Rate/Dose Change 03/14/2021 4:50 AM BODY BUILDER APPRENTICE 25 mcg/kg/min 8.13 mL/hr Rate/Dose Verify 03/14/2021 4:00 AM BODY BUILDER APPRENTICE 30.012 mcg/kg/min 9.76 mL/h r propofoL injection (DIPRIVAN) Given 03/12/2021 9:45 AM BODY BUILDER APPRENTICE 30 mg intravenous, Code/trauma/sedation medication, Starting on Wed03/12/21 at 0945 propofoL injection (DIPRIVAN) Given 03/12/2021 9:46 AM BODY BUILDER APPRENTICE 30 mg intravenous, Code/trauma/sedation medication, Starting on Wed03/12/21 at 0946 rifAXIMin tablet 550 mg (XIFAXAN) Given 03/24/2021 8:52 AM BODY BUILDER APPRENTICE 550 mg 550 mg, oral, 2 times daily, First dose on Luz Marina 03/13/21 at 0900, Indications: Prophylaxis, medical Given 03/23/2021 9:49 PM BODY BUILDER APPRENTICE 550 mg Given 03/23/2021 8:10 AM BODY BUILDER APPRENTICE 550 mg rocuronium injection (ZEMURON) Given 03/12/2021 9:45 AM BODY BUILDER APPRENTICE 70 mg Code/trauma/sedation medication, Starting on Wed03/12/21 at 0945 sodium bicarbonate tablet 650 mg Given 03/23/2021 8:10 AM BODY BUILDER APPRENTICE 650 mg 650 mg, oral, 3 times daily, First dose on Wed03/19/21 at 1400 Given 03/22/2021 10:49 PM BODY BUILDER APPRENTICE 650 mg Given 03/22/2021 3:05 PM B[employer] BUILDER APPRENTICE 650 mg sodium bicarbonate tablet 650 mg Given 03/24/2021 8:53 AM BODY BUILDER APPRENTICE 650 mg 650 mg, oral, 4 times daily, First dose (after last modification) on 03/23/21 at 1700 Given 03/23/2021 9:49 PM BODY BUILDER APPRENTICE 650 mg Given 03/23/2021 5:38 PM BODY BUILDER APPRENTICE 650 mg sodium chloride 0.9 % flush 100 mL Given 03/12/2021 1:47 PM BODY BUILDER APPRENTICE 100 mL 100 mL, intravenous, Once in imaging, line care, needed for CT, Starting on Wed03/12/21 at 1346, For 1 dose sodium chloride 0.9 % flush 100 mL Given 03/16/2021 2:37 AM B[employer] BUILDER APPRENTICE 100 mL 100 mL, intravenous, Once in imaging, line care, for CT exam, Starting on 03/16/21 at 0230, For 1 dose sodium chloride 0.9 % injection 10 mL Given 03/12/2021 1:46 PM BODY BUILDER APPRENTICE 10 mL 10 mL, intravenous, Once in imaging, line care, Starting on Wed03/12/21 at 1346, For 1 dose sodium chloride 0.9 % injection 10 mL Given 03/17/2021 6:48 AM B[employer] BUILDER APPRENTICE 10 mL 10 mL, intravenous, As needed, line care, Central Venous Catheter (CVC) Non-Tunneled Non-Valved, Starting on Wed03/12/21 at 1706, Prior to blood sampling, post blood transfusion or post blood sampling. Given 03/17/2021 12:12 AM B[employer] BUILDER APPRENTICE 10 mL sodium chloride 0.9 % injection 10 mL Given 03/16/2021 2:36 AM BODY BUILDER APPRENTICE 10 mL 10 mL, intravenous, Once in imaging, line care, for CT exam, Starting on 03/16/21 at 0230, For 1 dose sodium chloride 0.9 % injection 5 mL 5 mL, intravenous, As needed, line care, Central Venous Catheter (CVC) Non-Tunneled Non-Valved, Starting on Wed03/12/21 at 1706, Prior to and following infusion and between multiple consecutive infusions. sodium chloride 0.9 % injection 5-15 mL Given 03/23/2021 9:51 PM BODY BUILDER APPRENTICE 10 mL 5-15 mL, intravenous, Every 12 hours scheduled, First dose on Wed03/12/21 at 2100, Central Venous Catheter (CVC) Non-Tunneled Non-Valved: When no infusion to maintain patency. Flush 5 mL per lumen. Given 03/23/2021 8:10 AM B[employer] BUILDER APPRENTICE 10 mL Given 03/22/2021 10:51 PM BODY BUILDER APPRENTICE 10 mL spironolactone tablet 50 mg (ALDACTONE) Given 03/24/2021 8:52 AM B[employer] BUILDER APPRENTICE 50 mg 50 mg, oral, Daily, First dose on Wed03/20/21 at 0900 Given 03/23/2021 8:10 AM B[employer] BUILDER APPRENTICE 50 mg Given 03/22/2021 10:22 AM B[employer] BUILDER APPRENTICE 50 mg thiamine tablet 100 mg (VITAMIN B1) Given 03/24/2021 8:52 AM B[employer] BUILDER APPRENTICE 100 mg 100 mg, oral, Daily, First dose on Wed03/13/21 at 1230 Given 03/23/2021 8:10 AM BODY BUILDER APPRENTICE 100 mg Given 03/22/2021 10:22 AM B[employer] BUILDER APPRENTICE 100 mg vancomycin 1,000 mg in NaCl [...] mL/hr in NaCl 0.9% 100 mL AM B[employer] BUILDER APPRENTICE infusion (PITRESSIN) 0.04 Units/min (12 mL/hr), intravenous, Continuous, Starting on Wed03/12/21 at 1245 New Bag 03/15/2021 10:06 AM BODY BUILDER APPRENTICE 0.04 Units/min 12 mL/hr Rate/Dose Verify 03/15/2021 10:00 AM BODY BUILDER APPRENTICE 0.04 Units/min 12 mL/hr documented in this encounter Active and Recently Administered Medications Times are shown in B[employer] BUILDER APPRENTICE. Scheduled Medication Order 03/22/2021 03/23/2021 03/24/2021 ciprofloxacin tablet 500 mg (CIPRO) 07 (Given - Prov ider: Nola Frederick) 0634 (Given - Provider: Lisa Stinson RSumaN.) 0618 (G iven - Provider: Bernardo Rosario [...] mg 1022 (Given - Provider: Julissa torres R.N.) 0810 (Given - Provider: Hope Guerrier R.N.) 0852 (Given - Provider: Hope Guerrier R.N.) 1 mg, oral, Daily, First dose on Wed03/13/21 at 1230 furosemide tablet 20 mg (LASIX) 1022 (Given - Provider : Julissa Villafuerte R.N.) 0810 (Given - Provider: Hope Guerrier R.N.) 0852 (G iven - Provider: Hope Guerrier R.N.) 20 mg, oral, Daily, First dose on Wed03/20/21 at 0900 lactulose solution 30 g (CHRONULAC) 1020 (Given - Prov ider: Julissa Villafuerte R.N.)1457 (Not Given - Provider: Julissa Villafuerte R.N. - Reason: Other)2248 (Not Given - Provider: Carol Rodriguez R.N. - Reason: Order parameters not met) 0810 (Given - Provider: Hope Guerrier R.N.)1404 (Given - Provider: Hope Guerrier R.N.)2149 (Given - Provider: Bernardo Rosario RSumaNSuma) 0852 (Given - Provider: Hope Guerrier R.N.) 30 g, gastric tube, 3 times daily, First dose on Wed03/12/21 at 1400, Aim for 500 cc stool in 24 hours or 3-4 loose bowel movements per day magnesium oxide tablet 400 mg (MAG-OX) 0 634 (Given - Provider: Lisa Stinson RSumaNSuma)1541 (Given - Provider: Hope Guerrier R.N.) 0618 (Given - Provider: Bernardo Rosario RSumaNSuma) 400 mg, oral, 2 times daily before [...] Comment: patient requested to wait until later) 001 (Given - Provider: Lisa Stinson R.N. - Comment: per patient request)2148 (Given - Provider: Bernardo Rosario R.N.) 6 mg, oral, Daily at bedtime, First dose (after last modification) on 03/17/[address] tablet 40 mg (PROTONIX) 1022 (Given - Provider: Julissa Villafuerte R.N.)2250 (Given - Provider: Carol Rodriguez R.N.) 0809 (Given - Provider: Hope Guerrier R.N.)2148 (Given [...] ER tablet 40 mEq (KLORCON/K-TAB) (C OMPLETED) 161 (Given - Provider: Carol Rodriguez R.N. - [...] R.N.) 0810 (Given - Provider: Hope Guerrier R.N.)2149 (Given - Provider: Bernardo Rosario R.N.) 0852 (Given - Provider: Hope Guerrier R.N.) 550 mg, oral, 2 times daily, First dose on Luz Marina 03/13/21 at 0900, Indications: Prophylaxis, medical sodium bicarbonate tablet 650 mg (CANCELED) 1022 (Give n - Provider: Julissa Villafuerte R.N.)1505 (Given - Provider: Julissa Villafuerte R.N.)2249 (Given - Provider: Carol Rodriguez R.N.) 0810 (Given - Provider: Hope Guerrier R.N.) 650 mg, oral, 3 times daily, First dose on Wed03/19/21 at 1400 sodium bicarbonate tablet 650 mg 1738 (G iven - Provider: Hope Guerrier R.N.)2149 (Given - Provider: Bernardo Rosario R.N.) 0853 (Given - Provider: Hope Guerrier R.N.)1200 (Due) 650 mg, oral, 4 times daily, First dose (after last modification) on 03/23/21 at 1700 sodium chloride 0.9 % injection 5-15 mL 1030 (Given - Provider: Julissa Villafuerte R.N.)2251 (Given - Provider: Carol Rodriguez R.N.) 0810 (Given - Provider: Hope Guerrier R.N.)2151 (Given - Provider: Bernardo Rosario R.N.) 0853 (Not Given - Provider: Hope Guerrier [...] 50 mg, oral, Daily, First dose on Wed03/20/21 at 0900 thiamine tablet 100 mg (VITAMIN B1) 1022 (Given - Prov ider: Julissa Villafuerte R.N.) 0810 (Given - Provider: Hope Guerrier R.N.) 0852 (Tristan ivemily - Provider: Hope Guerrier R.N.) 100 mg, oral, Daily, First dose on Wed03/13/21 at 1230 PRN Medication Order 03/22/2021 03/23/2021 03/24/2021 LORazepam injection 1 mg (ATIVAN) 1 mg, intravenous, Every 4 hours PRN, se izmiguel, Starting on Wed03/20/21 at 2120, For intravenous use, dilute with [...] COVID19 Pending 03/12/2021 03/12/2021 03/12/2021 7:32 PM BODY BUILDER APPRENTICE documented as of this encounter Care Teams Hatchery Man Relationship Specialty Start Date End Date Elsewhere, Pcp PCP - General Family Medicine 03/10/20 11/30/21 Ervin Schroeder MD Referring Provider Family Medicine 03/24/[address] [place] [id number] documented as of this encounter
--- OUTSIDE RECORDS SUMMARY | 2022-01-31 04:36 | XMS_ITS | Encounter Summary ---
:1990 Author Organization [address] [id number] Phone Care Team Providers Name Role Phone Unavailable Primary Care Provider Unavailable Encounter Details Date Type Department Care Team Description 07/15/2021 Nurse Triage [facility] Cary Segura, RN [facility] [address] [place] [address] [place] [id number] Social History Tobacco Use Types Packs/Day Years Used Date Smoking Tobacco: Never Assessed Sex Assigned at Date Recorded Not on file COVID-19 Exposure Response Date Recorded In the last 10 days, have you been in contact with No / Unsu re 07/08/2021 9:38 AM [employer] C[employer] someone who was confirmed or suspected to have Coronavirus/COVID-19? documented as of this encounter Miscellaneous Notes Telephone Encounter - Cary Segura RN - 07/15/2021 9:06 AM CDT D: Telephone call received from patient questioning why she was not give blood when she was transferred to [facility]. A: Spoke with caller and advised her [...]
--- OUTSIDE RECORDS SUMMARY | 2022-01-31 04:36 | XMS_ITS | Clinical Summary ---
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 Added automatically from request for dolly daley [phone] Thrombocytopenia 07/01/2021 Alcoholic cirrhosis 03/12/2021 Acute respiratory [...] signed 01/12/2017 Overview: Signed: 07/05/12-Kiana Pino APRN, ACADEMIC SUPPORT ASSISTANT - p sychiatry Anxiety disorder; NOS; APPLE [...] Encounters Date Type Specialty Care Team Description 01/16/2022 Emergency Maye Gilliland, Gabe sode of unresponsiveness (Primary Dx); Chronic bilater al low back pain without sciatica 11/09/2021 Emergency Dominick Hickey, Hepatic encephalopathy (HC) (Primary Dx) ; Mattie Burdick Prolonged Q-T interval on ECG; MD Yue Decompensated hepatic cirrhosis (HC); Chronic pain sy ndrome; COVID-19 11/09/2021 Travel from Last 3 Months Immunizations Name [...] SAB Ectopic Multiple Living Live Births 1 05 03 1 Date Outcome GA Total Labor/2nd/3rd Weight Sex Delivery Anes PTL Angelica A 1 A5 Name Clin Labor 04/04 Term 41w 18h 00m/ 3.4 kg M Vag Epid /2013 0d (7 lb 8 ral oz) Comments: [place]. patient did meet couple. Last Filed Vital Signs Vital Sign Reading Time Taken Comments Blood Pressure 124/74 01/16/2022 12:25 AM CDT Pulse 94 01/16/2022 12:45 AM CDT Temperature 36.8 ??C (98.2 ??F) 01/16/2022 12:25 AM CDT Respiratory Rate 20 01/16/2022 12:25 AM CDT Oxygen Saturation 97% 01/16/2022 12:45 AM CDT Inhaled Oxygen Concentration - - Weight 60.9 kg (134 lb 4.2 oz) 01/16/2022 12:25 AM CDT Height 157.5 cm (5' 2) 01/16/2022 12:25 AM CDT Body Mass Index 24.56 01/16/2022 12:25 AM CDT Plan of Treatment Health Maintenance Due Date Last Done Comments Pap test for age 21-65 02/28/2017 02/28/2014 Depression screening for age 12+ 05/09/2020 05/09/2019, 10/2019, 02/07/2019, Additional history exists BMI (ht and wt on same day) for 11/08/2020 11/09/2019, 07/01, age 18+ 06/23/2019, Additional history exists COVID-19 vaccine series (3 - 06/10/2021 04/15/2021, 021 Booster for Pfizer series) Influenza for age 9-49 01/01/2022 03/07/2014, 02/26/2009, 02/26/2009, Additional history exists Tetanus booster 03/07/2024 03/07/2014, 09/08/2002 Tdap Completed 03/07/2014 Hepatitis C screening for age Completed 09/30/2018, 2013 18-79 Medical Devices Implanted Type Area Roll Repairer Device Shelf Model / Identifier Expiration Serial / Date Lot Partially Threaded Screws Left: [employer] [id number] / Implanted: Qty: 1 on 08/29/2018 by Omar Montesinos MD at [facility] [employer] / Description: From [facility] zay tray Explanted Type Area Roll Repairer Device Shelf Model / Identifier Expiration Serial / Date Lot 2.7mm Locking Screw Left: [employer] [id number] / Explanted: Qty: 1 on 08/29/2018 by Omar Montesinos MD at [facility] [employer] / Description: From [facility] zay tray Distal Medial Humerus Plates Left: [employer] [id number] / Implanted: Qty: 1 on 08/29/2018 by Omar Montesinos MD at [facility] / Explanted: Qty: 1 on 06/27/2019 by Omar Montesinos MD at [facility] Description: Amos from [employer] elbow ad d [...] report s are released immediately into your [facility] medical record. ??You may view this report [...] provider. If you have questions, please contact [facility] health care provider. INDICATION: Nasogastric [...] 12:48:16 PM (Electronically Signed) Mattie Burdick MD GENERAL IMAGING (ABNORMAL) COVID 19 (11/09/2021 11:42 AM CDT) [facility] Method Time Signature COVID 19 Detected (A) Not detected 11/09/2021 [facility] 12:25 PM MEDICAL MOLECULAR CDT CENTER LABORATORY Specimen Anatomical Location / Collection Method Collection Hiro e Received Time (Source) Laterality / Volume Other SPECIMEN FROM Non-Blood / 11/09/2021 11:42 11/09/2021 NASOPHARYNGEAL Unknown AM CDT 11:55 AM CDT STRUCTURE / Unknown Narrative [facility] - 12:25 PM CDT This test [...] Organization Address City/State/ZIP Code Phon e Number [facility] [address] [place] [address] COVID 19 COLLECTION (11/09/2021 11:42 AM CDT) Patholo gist Method Time Signature TESTING [facility] 11/09/2021 [facility] [facility] Laboratory 11:55 AM MEDICAL CDT CENTER LABORATORY Comment: Specimen submitted to [facility] for testing. Specimen Anatomical Location / Collection Method Collection Hiro e Received Time (Source) Laterality / Volume Other SPECIMEN FROM Non-Blood / 11/09/2021 11:42 11/09/2021 NASOPHARYNGEAL Unknown AM CDT 11:55 AM CDT STRUCTURE / Unknown Mattie Burdick MD SEND OUTS Performing Organization Address City/[facility]/ZIP Code Phon e Number [facility] [address] [place] [address] (ABNORMAL) LACTATE VENOUS (11/09/2021 10:09 AM CDT)Only the most recent of2 resultswithin the time period is included. athologist Signature LACTATE,VENOUS 3.3 (H) 0.5 - 2.0 11/09/2021 [place] mmol/L 11:01 AM T [facility] Specimen Anatomical Collection Method Collection Time Receive d Time (Source) Location / / Volume Laterality Blood BLOOD SPECIMEN / Butterfly / 11/09/2021 10:09 022 Unknown Unknown AM CDT 10:11 AM CDT Dominick Hickey DO CHEMISTRY Performing Organization Address City/[facility]/ZIP Code Phon e Number [facility] [address] [place] [address] CT ABDOMEN PELVIS WO (11/09/2021 10:06 AM [...] note that all CT scans at this fa cility use dose modulation, iterative reconstruction, and/or weight-based dosing when appropriate to reduce radiation dose to as low as reasonably achievable. Dictated by Silvestre Villegas MD @ 11/09/2021 11:42:49 AM (Electronically Signed) Narrative 11/09/2021 11:42 AM CDT For Patients: ??As a result of the Cures Act, medical imaging exams and procedure report s are released immediately into your [facility] medical record. ??You may view this report [...] note that all CT scans at this [facility] use dose modulation, iterative [...] report s are released immediately into your [facility] medical record. ??You may view this report before your referring provider. ??If you have questions, please contact your health care provider. INDICATION: Mental status change. TECHNIQUE: Noncontrast CT images acquired through [employer]. COMPARISON: CT brain 12/11/2016. FINDINGS: The ventricles [...] note that all CT scans at this [facility] use dose modulation, iterative reconstruction, and/or weight-based dosing when appropriate to reduce radiation dose to as low as reasonably achievable. Dictated by Conor Leon MD @ 2 10:18:10 AM (Electronically Signed) Procedure Note Conor Leon MD - 11/09/2021F ormatting of this note might be different from the original. For Patients: As a result of the ntury Cures Act, medical imaging exams and procedure reports are released immediately into your electronic medical record. You may view this report before your referring provider. If you have questions, please contact [facility] care provider. INDICATION: Mental status change. TECHNIQUE: Noncontrast CT images acquired through [facility] brain. COMPARISON: CT brain 12/11/2016. FINDINGS: [...] note that all CT scans at this [facility] use dose modulation, iterative reconstruction, and/or weight-based dosing when appropriate to reduce radiation dose to as low as reasonably achievable. Dictated by Conor Leon MD @ 2 10:18:10 AM (Electronically Signed) Dominick Hickey DO CT BLOOD CULTURE (11/09/2021 7:52 AM CDT)Only the most recent of2 resultswithin the time period is included. athologist Signature CULTURE No Growth. 11/14/2021 [place] 3:10 PM [facility] Specimen Anatomical Collection Method Collection Time Receive d Time (Source) Location / / Volume Laterality Blood BLOOD SPECIMEN / Butterfly / 11/09/2021 7:52 AM 11/09 7:55 Unknown Unknown CDT AM CDT Narrative [facility] - 3:10 PM CDT Low volume blood culture received; possi ble false negative culture. Dominick Hickey DO MICROBIOLOGY Performing Organization Address City/State/ZIP Code Phon e Number [facility] [address] [place] [address] (ABNORMAL) Drug Abuse Screen Rapid Urine Inhouse (11/09/2021 7:45 AM CDT) [facility] Method Time Signature THC Presumptive Not 11/09/2021 [place] METABOLITES,QU Positive-Uncon Detected 8:08 AM T MEDICAL [place] firmed Result CENTER (A) LABORATORY PCP,QUAL Not Detected Not 11/09/2021 [place] Detected 8:08 AM [facility] COCAINE,QUAL Not Detected Not 11/09/2021 [place] Detected 8:08 AM [facility] METHAMPHETAMIN Not Detected Not 11/09/2021 [place] E, QUALITATIVE Detected 8:08 AM [facility] OPIATES,QUAL Not Detected Not 11/09/2021 [place] Detected 8:08 AM [facility] AMPHETAMINE, Not Detected Not 11/09/2021 [place] QUALITATIVE Detected 8:08 AM [facility] BENZODIAZEPINE Presumptive Not 11/09/2021 [place] S,QUAL Positive-Uncon Detected 8:08 AM [facility] MEDICAL firmed Result CENTER (A) LABORATORY TRICYCLICS,HONG Not Detected Not 11/09/2021 [place] L Detected 8:08 AM [facility] METHADONE, Not Detected Not 11/09/2021 [place] QUALITATIVE Detected 8:08 AM [facility] BARBITURATES,Q Not Detected Not 11/09/2021 [place] UAL Detected 8:08 AM [facility] OXYCODONE, Presumptive Not 11/09/2021 [place] QUALITATIVE Positive-Uncon Detected 8:08 AM [facility] MEDICAL firmed Result CENTER (A) LABORATORY BUPRENORPHINE, Not Detected Not 11/09/2021 [place] QUALITATIVE Detected 8:08 AM [facility] PROPOXYPHENE,Q Not Detected Not 11/09/2021 [place] UAL Detected 8:08 AM [facility] CENTER LABORATORY Specimen Anatomical Collection Method Collection Time Receive d Time (Source) Location / / Volume Laterality Urine URINE SPECIMEN / Non-Blood / 11/09/2021 7:45 AM 11/09 7:49 Unknown Unknown CDT AM CDT Narrative [facility] - 8:08 AM CDT Please Note: [...] Organization Address City/State/ZIP Code Phon e Number [facility] [address] [place] [address] (ABNORMAL) URINALYSIS MICROSCOPIC (11/09/2021 7:45 AM CDT) [facility] gist Method Time Signature RBC None Seen 0-2, None 11/09/2021 [place] Seen /HPF 8:07 AM [facility] WBC 6-10 (A) 0-2, 3-5, 11/09/2021 [place] None Seen 8:07 AM [facility] CENTER /HPF LABORATORY BACTERIA Many (A) None 11/09/2021 [place] Seen, 8:07 AM [facility] Rare, Few LABORATORY Bacteria/ HPF EPITHELIAL None Seen None 11/09/2021 [facility] CELLS Seen, Few 8:07 AM [facility] Epi/HPF LABORATORY RENAL Few Few 11/09/2021 [place] EPITHELIAL 8:07 AM [facility] CELLS LABORATORY Mucus Present 11/09/2021 [place] 8:07 AM [facility] LAB[facility] HYALINE CASTS 6-10 (A) 0-2, 3-5 11/09/2021 [place] /LPF 8:07 AM [facility] LAB[facility] WBC CASTS 0-2 (A) (none) 11/09/2021 [place] /LPF 8:07 AM [facility] Specimen Anatomical Collection Method Collection Time Receive d Time (Source) Location / / Volume Laterality Urine URINE SPECIMEN / Non-Blood / 11/09/2021 7:45 AM 11/09 7:49 Unknown Unknown CDT AM CDT Dominick Uriarteshanel [facility] URINE Performing Organization Address City/[facility]/ZIP Code Phon e Number [facility] [address] [place] [address] Urine Culture (11/09/2021 7:45 AM CDT) athologist Signature CULTURE No growth 11/10/2021 [facility] [employer] (<1,000 6:53 AM T LABORATORY-CENT CFU/mL) [facility] Specimen Anatomical Collection Method Collection Time Receive d Time (Source) Location / / Volume Laterality Urine URINE SPECIMEN / Non-Blood / 11/09/2021 7:45 AM 11/09 7:49 Unknown Unknown CDT AM CDT Dominicklencho Uriarteshanel Hickey DO MICROBIOLOGY Performing Organization Address City/State/ZIP Code Phon e Number [id number] [place] [address] LABORATORY-CENTRAL 1999 LABORATORY (ABNORMAL) Urinalysis W Reflex Microscopic if Positive (11/09/2021 7:45 AM CDT) [facility] Method Time Signature COLOR Yellow Yellow Color 11/09/2021 [facility] CLARITY Slightly Clear 11/09/2021 [place] Cloudy (A) Clarity 8:00 AM [facility] LAB[facility] SPECIFIC 1.010 1.010, 11/09/2021 [place] GRAVITY,URINE 1.015, 8:00 AM T MEDICAL 1.020, 1.025 [place] [facility] PH,URINE 5.5 6.0, 7.0, 11/09/2021 [place] 8.0, 5.5, 8:00 AM [facility] 6.5, 7.5, CENTER 8.5 LABORATORY UROBILINOGEN, Increased (A) Normal EU/dl 11/09/2021 [facility] QUALITATIVE 8:00 AM [facility] LAB[facility] PROTEIN, Trace (A) Negative 11/09/2021 [place] URINE mg/dL 8:00 AM [facility] LABOR[facility] GLUCOSE, Negative Negative 11/09/2021 [place] URINE mg/dL 8:00 AM [facility] LABORATORY KETONES,URINE Trace (A) Negative 11/09/2021 [place] mg/dL 8:00 AM [facility] LABOR[facility]ORY BILIRUBIN,URI Abnormal (A) Negative 11/09/2021 [place] NE 8:00 AM [facility] Comment: A variety of metabolites and/or medications may result in a positive bilirubin result. Clinical correlation i s recommended. OCCULT BLOOD,URINE Negative Negative 11/09/2021 8:00 AM [facility] LABORATORY NITRITE Positive (A) Negative 11/09/2021 8:00 AM [facility] LABORATORY LEUKOCYTE ESTERASE Negative Negative 11/09/2021 8:00 AM [facility] LABORATORY Specimen Anatomical Collection Method Collection Time Receive d Time (Source) Location / / Volume Laterality Urine URINE SPECIMEN / Non-Blood / 11/09/2021 7:45 AM 11/09 7:49 Unknown Unknown [facility] Domin[facility] Hic[facility] DO URINE Performing Organization Address City/State/ZIP Code Phon e Number [facility] [address] [place] [address] (ABNORMAL) CBC WITH AUTO DIFFERENTIAL (11/09/2021 7:34 AM T) [facility] Method Time Signature WHITE BLOOD 12.8 (H) 4.5 - 11/09/2021 [facility] COUNT 11.0 8:16 AM [facility] thou/cu LABORATORY mm RED BLOOD COUNT 2.23 (L) 4.00 - 11/09/2021 [facility] 5.20 8:16 AM [facility] mil/cu mm LABORATORY HEMOGLOBIN 8.2 (L) 12.0 - 11/09/2021 [place] 16.0 g/dL 8:16 AM [facility] LABORATORY HEMATOCRIT 24.4 (L) 33.0 - 11/09/2021 [place] 51.0 % 8:16 AM [facility] LABORATORY MCV 109 (H) 80 - 100 11/09/2021 [place] fL 8:16 AM [facility] LABORATORY MCH 36.8 (H) 26.0 - 11/09/2021 [place] 34.0 pg 8:16 AM [facility] LABORATORY MCHC 33.6 32.0 - 11/09/2021 [place] 36.0 g/dL 8:16 AM [facility] LABORATORY RDW 14.9 11.5 - 11/09/2021 [place] 15.5 % 8:16 AM [facility] LABORATORY PLATELET COUNT 73 (L) 140 - 440 11/09/2021 [place] thou/cu 8:16 AM [facility] mm LABORATORY MPV 9.2 6.5 - 11/09/2021 [place] 11.0 fL 8:16 AM [facility] LABORATORY % NEUT 82.7 % 11/09/2021 [place] 8:16 AM [facility] LABORATORY % LYMPH 7.4 % 11/09/2021 [place] 8:16 AM [facility] LABORATORY % MONO 9.3 % 11/09/2021 [place] 8:16 AM [facility] LABORATORY % EOS 0.4 % 11/09/2021 [place] 8:16 AM [facility] LABORATORY % BASO 0.2 % 11/09/2021 [place] 8:16 AM [facility] LABORATORY ABSOLUTE 10.5 (H) 1.7 - 7.0 11/09/2021 [place] NEUTROPHILS thou/cu 8:16 AM [facility] mm LABORATORY ABSOLUTE 1.0 0.9 - 2.9 11/09/2021 [place] LYMPHOCYTES thou/cu 8:16 AM [facility] LABORATORY ABSOLUTE 1.2 (H) <0.9 11/09/2021 [place] MONOCYTES thou/cu 8:16 AM [facility] mm LABORATORY ABSOLUTE 0.1 <0.5 11/09/2021 [place] EOSINOPHILS thou/cu 8:16 AM [facility]T [facility] mm LABORATORY ABSOLUTE 0.0 <0.3 11/09/2021 [place] BASOPHILS thou/cu 8:16 AM CDT MEDICAL CENTER mm LABORATORY Specimen Anatomical Collection Method Collection Time Receive d Time (Source) Location / / Volume Laterality Blood BLOOD SPECIMEN / Butterfly / 11/09/2021 7:34 AM 11/09 7:39 Unknown Unknown CDT AM CDT [facility] HEMATOLOGY Performing Organization Address City/[facility]/ZIP [facility] Phon e Number [facility] [address] [place] [address] TYPE AND SCREEN ONLY (11/09/2021 7:34 AM CDT) Patholo gist Method Time Signature ABORH B Rh 11/09/2021 [place] Positive 8:27 AM CDT [facility]ATORY BLOOD BANK ANTIBODY Negative Negative 11/09/2021 [facility] 8:27 AM [facility] BLOOD BANK SPECIMEN 11/12/21 11/09/2021 [place] EXPIRATION 23:59 8:27 AM CDT MEDICAL DATE/TIME CENTER LABORATORY BLOOD BANK Specimen Anatomical Collection Method Collection Time Receive d Time (Source) Location / / Volume Laterality Blood BLOOD SPECIMEN / Butterfly / 11/09/2021 7:34 AM 11/09 7:40 Unknown Unknown CDT AM CDT Dominick Rupinder [facility] BLOOD BANK Performing Organization Address City/[facility]/ZIP Code Phon e Number [facility] [address] [place] [address] BLOOD BANK HCG Beta Quant, (11/09/2021 7:34 AM CDT) P athologist Signature HCG BETA <1 mIU/mL 11/09/2021 [place] QUANT,PREGNANC 8:20 AM [facility] LAB[facility] Specimen Anatomical Collection Method Collection Time Receive d Time (Source) Location / / Volume Laterality Blood BLOOD SPECIMEN / Butterfly / 11/09/2021 7:34 AM 11/09 7:39 Unknown Unknown CDT AM CDT Narrative [facility] - 8:20 AM CDT Expected Value for Healthy Non- premenopausal women <5mIU/mL ? FOR GESTATIONAL ASSESSMENT-See Range Table Below ? Weeks Post LMP ?Approximate HCG Range: ? (Last Menstrual Period) ?3-4 ?? Weeks ? (9-130) ?4-5 ?? Weeks ? (10-6210) ?5-6 ?? Weeks ? (850-20322) ?6-7 ?? Weeks ? ([phone]) ?7-12 ??Weeks ? ([phone]) ?12-16 Weeks ? ([id number]) ?16-29 Weeks ? ([phone]) ?29-41 Weeks ? ([phone]) Dominick Hickey DO CHEMISTRY Performing Organization Address City/State/ZIP Code Phon e Number [facility] [address] [place] [address] (ABNORMAL) BLOOD GAS,VENOUS (11/09/2021 7:34 AM CDT) [facility] Method Time Signature PH, VENOUS 7.42 7.32 - 7.43 11/09/2021 [place] 7:45 AM [facility] PCO2, VENOUS 29 (L) 41 - 51 11/09/2021 [facility] mmHg 7:45 AM [facility] PO2, VENOUS 101 (H) 35 - 40 11/09/2021 [facility] mmHg 7:45 AM [facility] HCO3,VENOUS 19 (L) 22 - 29 11/09/2021 [facility] mmol/L 7:45 AM [facility] LAB[facility] BASE EXCESS, -4.4 (L) -2.0 - 3.0 11/09/2021 [facility] VENOUS, POCT 7:45 AM [facility] LAB[facility] O2 SATURATION, >100 (H) 70 - 75 % 11/09/2021 [facility] VENOUS 7:45 AM [facility] PATIENT 37.0 Degrees C 11/09/2021 [place] TEMPERATURE 7:45 AM [facility] Specimen Anatomical Collection Method Collection Time Receive d Time (Source) Location / / Volume Laterality Blood VENOUS BLOOD Butterfly / 11/09/2021 7:34 AM 7:40 SPECIMEN / Unknown Unknown CDT AM CDT Dominick Hickey DO CHEMISTRY Performing Organization Address City/[facility]/ZIP Code Phon e Number [facility] [address] [place] [address] Ethanol Serum or Plasma (11/09/2021 7:34 AM CDT) P athologist Signature ETHANOL <0.010 <0.010 g/dL 11/09/2021 [facility] 8:10 AM [facility] Specimen Anatomical Collection Method Collection Time Receive d Time (Source) Location / / Volume Laterality Blood BLOOD SPECIMEN / Butterfly / 11/09/2021 7:34 AM 11/09 7:39 Unknown Unknown CDT AM CDT Dominick Hickey DO CHEMISTRY Performing Organization Address City/State/ZIP Code Phon e Number [facility] [address] [place] [address] (ABNORMAL) C-REACTIVE PROTEIN (11/09/2021 7:34 AM CDT) Analysis Performed At Patho logist Time Signature C-REACTIVE 0.84 (H) <0.50 11/09/2021 [facility] PROTEIN mg/dL 8:08 AM CDT [facility] Specimen Anatomical Collection Method Collection Time Receive d Time (Source) Location / / Volume Laterality Blood BLOOD SPECIMEN / Butterfly / 11/09/2021 7:34 AM 11/09 7:39 Unknown Unknown CDT AM CDT Dominicklencho Uriarteshanel Hickey DO CHEMISTRY Performing Organization Address [facility] Code Phon e Number [facility] [address] [place] [address] (ABNORMAL) APTT (11/09/2021 7:34 AM CDT) P athologist Signature APTT 59 (H) 25 - 36 sec 11/09/2021 [facility] 7:50 AM CDT [facility] Specimen Anatomical Collection Method Collection Time Receive d Time (Source) Location / / Volume Laterality Blood BLOOD SPECIMEN / Butterfly / 11/09/2021 7:34 AM 11/09 7:40 Unknown Unknown CDT AM CDT [facility] LABORATORY - 7:50 AM CDT Therapeutic Range: 76-99 seconds Dominick Hickey DO HEMATOLOGY Performing Organization Address City/[facility]/ZIP Code Phon e Number [facility] [address] [place] [address] (ABNORMAL) Protime - INR (11/09/2021 7:34 AM CDT) P athologist Signature INR 3.4 (H) <1.3 11/09/2021 [facility] 7:49 AM T [facility] PROTIME 33.3 (H) 11.8 - 13.9 11/09/2021 [place] sec 7:49 AM T [facility] CENTER LABORATORY Specimen Anatomical Collection Method Collection Time Receive d Time (Source) Location / / Volume Laterality Blood BLOOD SPECIMEN / Butterfly / 11/09/2021 7:34 AM 11/09 7:40 Unknown Unknown CDT AM CDT [facility] LABORATORY - 7:49 AM CDT ?Therapeutic Range [...] Dominick Hickey DO HEMATOLOGY Performing Organization Address [facility] e [facility] LABORATORY [address] [place] [address] Magnesium (11/09/2021 7:34 AM CDT) athologist Signature MAGNESIUM 1.7 1.6 - 2.6 11/09/2021 [place] mg/dL 8:12 AM [facility] LABORATORY Specimen Anatomical Collection Method Collection Time Receive d Time (Source) Location / / Volume Laterality Blood BLOOD SPECIMEN / Butterfly / 11/09/2021 7:34 AM 11/09 7:39 Unknown Unknown CDT AM CDT Dominick Chapitoshanel [facility]ell[facility] CHEMISTRY Performing Organization Address [facility] LABORATORY [address] [place] [address] (ABNORMAL) Lipase (11/09/2021 7:34 AM CDT) athologist Signature LIPASE <5.0 (L) 8.0 - 78.0 11/09/2021 [place] IU/L 9:00 AM [facility] LABORATORY Specimen Anatomical Collection Method Collection Time Receive d Time (Source) Location / / Volume Laterality Blood BLOOD SPECIMEN / Butterfly / 11/09/2021 7:34 AM 11/09 7:39 Unknown Unknown CDT AM CDT Dominick Uriarteshanel [facility] CHEMISTRY Performing Organization Address [facility] e [facility] LABORATORY [address] [place] [address] (ABNORMAL) AMMONIA (11/09/2021 7:34 AM CDT) athologist Signature AMMONIA 174 (HH) 11 - 35 11/09/2021 [place] umol/L 8:11 AM [facility] Comment: 1. ??Sulfasalazine and its [...] 7:39 Unknown Unknown CDT AM CDT [facility]Y Performing Organization Address [facility]/ZIP [facility] Phon e Number [facility] [address] [place] [address] Salicylate (11/09/2021 7:34 AM CDT) athologist Signature SALICYLATE <10.0 15.0 - 30.0 11/09/2021 [place] mg/dL 8:14 AM [facility] Specimen Anatomical Collection Method Collection Time Receive d Time (Source) Location / / Volume Laterality Blood BLOOD SPECIMEN / Butterfly / 11/09/2021 7:34 AM 11/09 7:39 Unknown Unknown CDT AM CDT [facility]icklencho [facility] Performing Organization Address City/[facility]/ZIP [facility] Phon e Number [facility] [address] [place], [place] [phone] (ABNORMAL) Complete Metabolic Panel (11/09/2021 7:34 AM CDT) [facility] gist Method Time Signature SODIUM 129 (L) 135 - 145 11/09/2021 [place] mmol/L 8:14 AM [facility] POTASSIUM 4.9 3.5 - 5.0 11/09/2021 [place] mmol/L 8:14 AM [facility] CHLORIDE 100 98 - 110 11/09/2021 [place] mmol/L 8:14 AM [facility] CO2,TOTAL 17 (L) 21 - 31 11/09/2021 [place] mmol/L 8:14 AM [facility] LAB[facility]ORY ANION GAP 12 5 - 18 11/09/2021 [place] 8:14 AM [facility] GLUCOSE 107 (H) 65 - 100 11/09/2021 [place] mg/dL 8:14 AM [facility] CALCIUM 8.4 (L) 8.5 - 11/09/2021 [place] 10.5 8:14 AM [facility] mg/dL LABORATORY BUN 25 8 - 25 11/09/2021 [place] mg/dL 8:14 AM [facility] CREATININE 2.03 (H) 0.57 - 11/09/2021 [place] 1.11 8:14 AM [facility] mg/dL LABORATORY BUN/CREAT RATIO 12 10 - 20 11/09/2021 [place] 8:14 AM [facility] ALBUMIN 2.4 (L) 3.5 - 5.2 11/09/2021 [place] g/dL 8:14 AM [facility] PROTEIN,TOTAL 5.1 (L) 6.0 - 8.0 11/09/2021 [place] g/dL 8:14 AM [facility] GLOBULIN 2.7 2.0 - 3.7 11/09/2021 [place] g/dL 8:14 AM [facility] A/G RATIO 0.9 (L) 1.0 - 2.0 11/09/2021 [place] 8:14 AM [facility] BILIRUBIN,TOTAL 16.8 (H) 0.2 - 1.2 11/09/2021 [place] mg/dL 8:14 AM [facility] ALK PHOSPHATASE 200 (H) 50 - 136 11/09/2021 [place] IU/L 8:14 AM [facility] ALT (SGPT) 21 8 - 45 11/09/2021 [place] IU/L 8:14 AM [facility] AST (SGOT) 43 (H) 2 - 40 11/09/2021 [place] IU/L 8:14 AM [facility] eGFR 33 (L) >90 11/09/2021 [place] mL/min/1. 8:14 AM [facility] 73m2 LABORATORY Comment: As of 2021, [...] Dominick Hickey DO CHEMISTRY Performing Organization Address City/[facility]/ZIP Code Phon e Number [facility] [address] [place] [address] EKG 12 Lead (11/09/2021 7:21 AM CDT) [facility] Method Time Signature Interpretation Normal sinus rhythm BEYON D NOW Normal ECG No previous ECGs available Ventricular Rate 89 BPM BEYOND NOW Atrial Rate 89 BPM BEYOND NOW P-R Interval 120 ms BEYOND NOW QRS Duration 90 ms BEYOND NOW QT 418 ms BEYOND NOW QTc 508 ms BEYOND NOW P Liscomb 58 degrees BEYOND NOW R Liscomb 82 degrees BEYOND NOW T Liscomb 62 degrees BEYOND NOW Specimen Anatomical Collection Method Collection Time Receive d Time (Source) Location / / Volume Laterality 11/09/2021 7:21 AM 7:45 CDT AM CDT Dominick Hickey DO EKG ORD Performing Organization Address [facility] Phon e Number BEYOND NOW [place], [place] from Last 3 Months Insurance Payer Benefit Plan / Subscriber ID Effective Dates Phone Addre ss Type Group BLUE CROSS [place] BLUE ADVANTAGE [id number] 2018-Present [address] [address] [place] [address] [place] [id number] 2015-Presen [address] [address] [place] [address] Catia Carias Personal/Famil Self 1990 AP T 3 y (Home) [address] [place] [address] Catia Carias Motor Vehicle Self 1990 [address] (Home) [place] [id number] Advance Directives Latest Code Status on File [...] 1:52 PM 04/17/2019 2:42 PM Care Teams Sales Professional Bilingual Relationship Specialty Start Date End Date Ervin Schroeder MD PCP - General Family Practice 11/09/211999 [place] [address]
--- OUTSIDE RECORDS SUMMARY | 2022-01-31 04:36 | XMS_ITS | Encounter Summary ---
:1990 Author Organization [facility] Address [address] [place] [address] Care Team Providers Name Role Phone Elsewhere, Pcp Primary Care Provider Unavailable Reason for Visit Reason Onset Date Comments Outpatient COVID-19 Testing 07/21/2020 Encounter Details Date Type Department Care Team Description 07/21/2020 External Outreach Department of Pedro Evans And Internal Medicine in J, D.O. (Suspected) Exposure [place], [place] [address] To COVID-19 (Primary [address] [place], [place] Dx) [place] [phone] Social History Tobacco Use Types Packs/Day Years [...] do you attend presybeterian or Never 2021 buddhism services? 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 [address] [place] [phone] Surgery Gastroenterology and [facility], [place] ESOPHAG OGASTRODUODENOSCOPY 2 Hepatology Tyrell Rodriguez M.D. [address] [place] [phone] Telemedicine Transplant 2 Lab Laboratory Medicine Karin, 2 Adeline Gannon M.D., Ph.D. [address] [place] [phone] Lab Laboratory Medicine Karin, 2 Adeline Gannon M.D., Ph.D. [address] [place] [phone] Office Visit Transplant Karin, 2 Adeline Gannon M.D., Ph.D. [address] [place] [phone] Appointment Radiology [facility] 2 Tyrell Rodriguez, Lilian [address] [place] [phone] Appointment Gastroenterology and Adrianne, 2 Hepatology Yue Burciaga M.D. [address] [place] [phone] Office Visit Gastroenterology and Matthew Jerome 2 Hepatology YTyrell M.D. [address] [place] [phone] Appointment Radiology LuisMatthew abdul 2 Tyrell Rodriguez M.D. [address] [place] [phone] Scheduled Procedures Name Priority Associated Diagnoses Date/Time ESOPHAGOGASTRODUODENOSCOPY Cirrhosis Alc oholic (HCC) 02/10/2022 8:45 AM CDT Hypertension Portal (HCC) documented as of this encounter Visit Diagnoses Diagnosis Contact With And (Suspected) Exposure To COVID-19 - Primary Cirrhosis Alcoholic (HCC) Hypertension Portal (HCC) documented in this encounter Additional Health Concerns Infection Onset Date Last Indicated Resolved Time COVID19 Pending 07/21/2020 07/21/2020 07/22/2020 12:06 PM CDT documented as of this encounter Care Teams Manager Basketball Relationship Specialty Start Date End Date Elsewhere, Pcp PCP - General Family Medicine 03/10/20 11/30/21 documented as of this encounter
--- OUTSIDE RECORDS SUMMARY | 2022-01-31 04:36 | XMS_ITS | Encounter Summary ---
:1990 Author Organization [facility] Address [address] [place] [address] Care Team Providers Name Role Phone Elsewhere, Pcp Primary Care Provider Unavailable Encounter Details Date Type Department Care Team Description 08/27/2020 Orders Only [facility] PCP TH Sa yoav Trujillo M.D. [address] [place] [address] [phone] (Wo rk) Social History Tobacco [...] do you attend yazidi or Never 2021 anglican services? 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 documented as of this encounter Plan of Treatment Upcoming Encounters Date Type Specialty Care Team Description Office Visit Community Internal Neda, 2 Medicine Vernell Perez [address] [place] [phone] Appointment Radiology Nhusa, Matthew 2 YElizabeth.B.B.Kath, MJules [address] [place] [phone] [facility] Gastroenterology and Mousa, Matthew 2 Encounter Hepatology Joshua RodriguezBSumaBGraeme, Lilian [address] [place] [phone] Surgery Gastroenterology and Mousa, Matthew ESOPHAG OGASTRODUODENOSCOPY 2 Hepatology YElizabeth.B.B.S., Lilian [address] [place] [phone] Telemedicine Transplant 2 Lab Laboratory Medicine Karin, 2 Adeline Gannon M.D., Ph.D. [address] [place] [phone] Lab Laboratory Medicine Olinda Frazier M.D., Ph.D. [address] [place] [phone] Office Visit Transplant Karin Olinda Adeline Gannon M.D., Ph.D. [address] [place] [phone] Appointment Radiology Matthew Jerome 2 YJoshuaB.B.SSuma, MJules [address] [place] [phone] Appointment Gastroenterology demian Silver 2 Hepatology Yue Burciaga M.D. [address] [place] [phone] Office Visit Gastroenterology and Matthew Jerome 2 Hepatology Jennifer M.B.B.SSuma, Lilian [address] [place] [phone] Appointment Radiology Matthew Jerome 2 Y M.B.B.SSuma, Lilian [address] [place] [phone] Scheduled Procedures Name Priority Associated Diagnoses Date/Time ESOPHAGOGASTRODUODENOSCOPY Cirrhosis Alc oholic (HCC) 02/10/2022 8:45 AM CDT Hypertension Portal (HCC) documented as of this encounter Visit Diagnoses Not on filedocumented in this encounter Care Teams Credit Rating Inspector Relationship Specialty Start Date End Date Elsewhere, Pcp PCP - General Family Medicine 03/10/20 11/30/21 documented as of this encounter
--- OUTSIDE RECORDS SUMMARY | 2022-01-31 04:36 | XMS_ITS | Encounter Summary ---
:1990 Author Organization [facility] Address [address] [place] [address] Care Team Providers Name Role Phone Elsewhere, Pcp Primary Care Provider Unavailable Reason for Visit Reason Onset Date Comments Outpatient COVID-19 Testing 03/10/2020 Encounter Details Date Type Department Care Team Description 03/10/2020 External Outreach Department of Pedro Evans Infect ion Upper Internal Medicine in J, D.O. Respiratory (Primary [place], [place] [address] Dx) [address] [place], [place] [phone] Social History Tobacco Use Types Packs/Day Years [...] do you attend pentecostalism or Never 2021 pentecostalism services? 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 - 03/10/2020 3:17 PM CST Encounter created for the drive-through COVID-19 testing. RMATION SYSTEMS AUDITOR documented in this encounter Plan of Treatment Upcoming Encounters Date Type Specialty Care Team Description Office Visit Community Internal [employer], 2 Medicine Vernell Perez [address] [place] [phone] Appointment Radiology Matthew Jerome 2 Tyrell Rodriguez, Lilian [address] [place] [phone] [facility] Gastroenterology and Matthew Jerome 2 Encounter Hepatology Tyrell Rodriguez, Lilian [address] [place] [phone] Surgery Gastroenterology and Matthew Jerome ESOPHAG OGASTRODUODENOSCOPY 2 Hepatology Vik RodriguezBLilian Bedolla [address] [place] [phone] Telemedicine Transplant 2 Lab Laboratory Medicine Karin, 2 Adeline Gannon M.D., Ph.D. [address] [place] [phone] Lab Laboratory Medicine Karin, 2 Adeline Gannon M.D., Ph.D. [address] [place] [phone] Office Visit Transplant Karin, Olinda Gannon M.D., Ph.D. [address] [place] [phone] Appointment Radiology Matthew Jerome 2 YJoshuaB.B.SSuma, Lilian [address] [place] [phone] Appointment Gastroenterology and Adrianne, 2 Hepatology Yue Burciaga M.D. [address] [place] [phone] Office Visit Gastroenterology and Matthew Jerome 2 Hepatology Joshua RodriguezB.B.SLilian Moise [address] [place] [address] [phone] Appointment Radiology Matthew Jerome 2 Y M.B.B.SLilian Moise [address] [place] [phone] Scheduled Procedures Name Priority Associated Diagnoses Date/Time ESOPHAGOGASTRODUODENOSCOPY Cirrhosis Alc oholic (HCC) 02/10/2022 8:45 AM CDT Hypertension Portal (HCC) documented as of this encounter Procedures Procedure Name Priority Date/Time Associated Diagnosis Comme nts SARS CORONAVIRUS-2 Routine 03/10/2020 4:10 PM Infection Upper Results for this RNA, V INFORMATION SYSTEMS AUDITOR Respiratory procedure are i n the results section. documented in this encounter Results SARS Coronavirus-2 RNA, V Symptomatic (03/10/2020 4:10 PM INFORMATION SYSTEMS AUDITOR) [facility] Method Time Signature SARS-CoV-2 Swab, 03/11/2020 [facility] Specimen Nasopharynx 12:38 PM Source INFORMATION SYSTEMS AUDITOR SARS CoV-2 Undetected Undetected 03/11/2020 [facility]TO RNA, TMA 12:38 PM INFORMATION SYSTEMS AUDITOR Comment: SARS-CoV-2 RNA absent. This result does not rule out COVID-19 in the patient, as the sensitivity of the test depends o n the timing of the specimen collection and the quality of the specim en. Result should be correlated with patient's history and clinical presentat ion. ----ADDITIONAL INFORMATION---- This test is performed using the Aptima SARS-CoV-2 assay ([employer] which has received Emergency Use Authori zation (EUA) by the U.S. Food and Drug Administration. Fact sheets for this Emergency Use Autho rization (EUA) assay can be found at the following links: For Healthcare Providers: https://www.fd a.gov/media/561887/download For Patients: https://www.fda.gov/media/ 275851/download Specimen Anatomical Collection Method Collection Time Receive d Time (Source) Location / / Volume Laterality Varies 03/10/2020 4:10 PM 0 (Nasopharynx) INFORMATION SYSTEMS AUDITOR 11:20 PM INFORMATION SYSTEMS AUDITOR Pedro Evans D.O. LAB MICROBIOLOGY - GENERAL O RDERABLES Performing Organization Address City/State/ZIP Code Phon e Number [facility]- [address] [place] [address] [place] [address] [address] documented in this encounter Visit Diagnoses Diagnosis Infection Upper Respiratory - Primary Cirrhosis Alcoholic (HCC) Hypertension Portal (HCC) documented in this encounter Additional Health Concerns Infection Onset Date Last Indicated Resolved Time COVID19 Pending 03/10/2020 03/10/2020 03/11/2020 12:40 PM INFORMATION SYSTEMS AUDITOR documented as of this encounter Care Teams Rental Clerk Tool And Equipment Relationship Specialty Start Date End Date Elsewhere, Pcp PCP - General Family Medicine 03/10/20 11/30/21 documented as of this encounter
--- OUTSIDE RECORDS SUMMARY | 2022-01-31 04:36 | XMS_ITS | Clinical Summary ---
:1990 Author Organization [employer] Address [address] [place] [phone] Phone Care Team Providers Name Role Phone Unavailable Primary Care Provider Unavailable Source Comments Restore Water is fully rolled out on Ent[employer]. Last update 10/05/08.[employer] Allergies Active Allergy Reactions Severity Noted Date [...] Comments Blood Pressure 114/67 07/08/2021 4:03 PM CLERK ANALYST Pulse 82 07/08/2021 4:03 PM CLERK ANALYST Temperature 36.9 ??C (98.5 ??F) 07/08/2021 6:31 AM CLERK ANALYST Respiratory Rate 16 07/08/2021 4:03 PM CLERK ANALYST Oxygen Saturation 98% 07/08/2021 4:03 PM CLERK ANALYST Inhaled Oxygen Concentration - - Weight - - Height - - Body Mass Index - - Plan of Treatment Health Maintenance Due Date Last Done Comments Dental Oral Exam 1990 Dental Prophylaxis 1990 Dental X-Ray: Bitewings 1990 Periodontal Maintenance 2004 HIV Screening 2005 PREVENTATIVE VISIT 2008 HEALTH MAINTENANCE PROTOCOL 2009 Cervical Cancer Screening Age 0307/09/2020 30-65 COVID-19 Vaccine (3 - Booster for 06/10/2021 04/15/2021, Pfizer series) INFLUENZA VACCINE 01/01/2022 03/07/2014, 02/26/2009, 03/26/2008, Additional history exists TD/TDAP ADULTS 03/07/2024 03/07/2014, 09/08/2002, 05/26/1995, Additional history exists HIB Completed 02/08/1992, 06/01/1991, 03/08/1991 Insurance Payer Benefit Plan Subscriber ID Effective Dates Phone Address Type / Group BLUE CROSS BCBS BLUE [id number] 2018-Sung [address] [address] [place] [address] (Home) [address] [place] [id number]
--- OUTSIDE RECORDS SUMMARY | 2022-01-31 04:36 | XMS_ITS | Encounter Summary ---
:1990 Author Organization [facility] Address [address] [place] [address] Care Team Providers Name Role Phone Elsewhere, Pcp Primary Care Provider Unavailable Reason for Visit Reason Comments Communication Encounter Details Date Type Department Care Team Description 07/12/2020 Clinical Communication Department of [facility], Pcp Communication Medicine, [facility], in [place], [place] [address] [place] [phone] Social History Tobacco Use Types Packs/Day Years [...] do you attend taoist or Never 2021 amish services? 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 The entrance is on the north side of the building. You must call [phone] during the hours of 7am to 6 [...] sending patient for testing in [facility] or [facility], route encounter to the correct testing pool. ICATING MACHINE MECHANIC documented in this encounter Plan of Treatment Upcoming Encounters Date Type Specialty Care Team Description Office Visit Community Internal Neda, 2 Medicine Vernell Perez [address] [place] [phone] Appointment Radiology Matthew Jerome 2 YJoshuaB.B.SSuma, MJules [address] [place] [address] [phone] Hospital Gastroenterology and Queenie Matthew 2 Encounter Hepatology Joshua RodriguezBSumaBGraeme, MJules [address] [place] [phone] Surgery Gastroenterology and [facility] Matthew ESOPHAG OGASTRODUODENOSCOPY 2 Hepatology Joshua RodriguezB.B.SSuma, MSumaD. [address] [place] [phone] Telemedicine Transplant 2 Lab Laboratory Medicine Olinda Frazier M.D., Ph.D. [address] [place] [phone] Lab Laboratory Medicine Olinda Frazier M.D., Ph.D. [address] [place] [phone] Office Visit Transplant Olinda Frazier, M.D., Ph.D. [address] [place] [phone] Appointment Radiology Matthew Jerome 2 YElizabeth.B.B.SSuma, MJules [address] [place] [phone] Appointment Gastroenterology and Adrianne 2 Hepatology Yue Burciaga M.D. [address] [place] [phone] Office Visit Gastroenterology and Matthew Jeroem 2 Hepatology Elizabeth Rodriguez.B.B.SSuma, Lilian [address] [place] [phone] Appointment Radiology Matthew Jeroem 2 Y M.B.B.SSuma, MJules [address] [place] [phone] Scheduled Procedures Name Priority Associated Diagnoses Date/Time ESOPHAGOGASTRODUODENOSCOPY Cirrhosis Alc oholic (HCC) 02/10/2022 8:45 AM CDT Hypertension Portal (HCC) documented as of this encounter Visit Diagnoses Not on filedocumented in this encounter Care Teams Commercial Singer Relationship Specialty Start Date End Date Elsewhere, Pcp PCP - General Family Medicine 03/10/20 11/30/21 documented as of this encounter
--- OUTSIDE RECORDS SUMMARY | 2022-01-31 04:36 | XMS_ITS | Encounter Summary ---
:1990 Author Organization [facility] Address [address] [place] [address] Care Team Providers Name Role Phone Elsewhere, Pcp Primary Care Provider Unavailable Encounter Details Date Type Department Care Team Description 03/10/2020 Admin Visit Department of Family Medicine, [address] [phone] [facility] [phone] Social History Tobacco Use Types Packs/Day Years [...] do you attend christian or Never 2021 evangelical services? 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 documented as of this encounter Plan of Treatment Upcoming Encounters Date Type Specialty Care Team Description Office Visit Community Internal Neda, 2 Medicine Vernell Perez [address] [place] [phone] Appointment Radiology [facility] 2 Y, M.B.B.S., MJules [address] [place] [phone] [facility] Gastroenterology and [facility] 2 Encounter Hepatology Joshua RodriguezB.B.S., MJules [address] [place] [phone] Surgery Gastroenterology and [facility] ESOPHAG OGASTRODUODENOSCOPY 2 Hepatology Y M.B.B.S., MSumaDSuma [address] [place] [phone] Telemedicine Transplant 2 Lab Laboratory Medicine Olinda Frazier M.D., Ph.D. [address] [place] [phone] Lab Laboratory Medicine SaraOlinda orndon Adeline Gannon M.D., Ph.D. [address] [place] [phone] Office Visit Transplant KarinOlinda Adeline Gannon M.D., Ph.D. [address] [place] [phone] Appointment Radiology Matthew Jerome 2 Y, M.B.B.S., MJules [address] [place] [phone] Appointment Gastroenterology demian Silver 2 Hepatology Yue Burciaga M.D. [address] [place] [phone] Office Visit Gastroenterology and Matthew Jerome 2 Hepatology Jennifer M.B.B.S., MJules [address] [place] [phone] Appointment Radiology Matthew Jerome 2 Y, M.B.B.S., MJules [address] [place] [phone] Scheduled Procedures Name Priority Associated Diagnoses Date/Time ESOPHAGOGASTRODUODENOSCOPY Cirrhosis Alc oholic (HCC) 02/10/2022 8:45 AM CDT Hypertension Portal (HCC) documented as of this encounter Visit Diagnoses Not on filedocumented in this encounter Additional Health Concerns Infection Onset Date Last Indicated Resolved Time COVID19 Pending 03/10/2020 03/10/2020 03/11/2020 12:40 PM 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
--- OUTSIDE RECORDS SUMMARY | 2022-01-31 04:36 | XMS_ITS ---
:1990 Author Organization [facility] Address [address] [place] [address] Care Team Providers Name Role Phone Ana Red P.A.-C. Primary Care Provider Transplant Episode [facility], [place] - MNMCEvaluation began on 09/26/2021Marked as Deferred on 10/16/2021 Liver CoordinatorTXP PRE LIVER NURSE TEAM 2 ROCHPhone: N/AFax: N/AEmail: N/A Scores Score Value Updated Expires Exceptions/Reas ons CPRA Not available UNOS MELD Not available MELD (Calc) 27 01/26/2022 [place] Organ Diagnosis Organ Primary Contributory Liver Alcoholic Cirrhosis Care Team Name Role Phone Fax Email TXP PRE LIVER Liver Coordinator N/A N/A N/A NURSE TEAM 2 DAYRON Vann, Transplant Surgeon [phone] Jeff [email or web address] Matthew Jerome, Referring Provider [phone] [email or web address]ian Santillan Transplant Steel Pourer du Events Pre-Transplant Referred: 08/14/2021 Evaluation began: 09/26/2021 Committee: 10/15/2021
--- OUTSIDE RECORDS SUMMARY | 2022-01-31 04:36 | XMS_ITS | Encounter Summary ---
:1990 Author Organization [facility] Address [address] [place] [phone] Phone Care Team Providers Name Role Phone [...] No / Unsu re 07/08/2021 9:38 AM LAPEL BASTER someone who was confirmed or suspected to have Coronavirus/COVID-19? documented as of this encounter Plan of Treatment Not on filedocumented as of this encounter Visit Diagnoses Not on filedocumented in this encounter
--- OUTSIDE RECORDS SUMMARY | 2022-01-31 04:36 | XMS_ITS | Encounter Summary ---
:1990 Author Organization [facility] Address [address] [place] [address] Care Team Providers Name Role Phone Elsewhere, [...] do you attend zoroastrian or Never 2021 taoism services? 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 documented as of this encounter Plan of Treatment Upcoming Encounters Date Type Specialty Care Team Description Office Visit Community Internal Deamariangel, 2 Medicine Vernell Perez [address] [place] [phone] Appointment Radiology [facility] 2 YElizabeth.B.B.SSuma, Lilian [address] [place] [phone] Hospital Gastroenterology and [facility] 2 Encounter Hepatology Joshua RodriguezB.B.SSuma, Lilian [address] [place] [phone] Surgery Gastroenterology and [facility] ESOPHAG OGASTRODUODENOSCOPY 2 Hepatology YElizabeth.B.B.S., Lilian [address] [place] [phone] Telemedicine Transplant 2 Lab Laboratory Medicine Karin, Olinda Gannon M.D., Ph.D. [address] [place] [phone] Lab Laboratory Medicine Olinda Frazier M.D., Ph.D. [address] [place] [phone] Office Visit Transplant Karin, 2 Adeline Gannon M.D., Ph.D. [address] [place] [phone] Appointment Radiology Matthew Jerome 2 YJoshuaBSuamBGraeme, MJules [address] [place] [phone] Appointment Gastroenterology and Adrianne, 2 Hepatology Yue Burciaga M.D. [address] [place] [phone] Office Visit Gastroenterology and Matthew Jerome 2 Hepatology Joshua RodriguezB.BGraeme, MJules [address] [place] [phone] Appointment Radiology Matthew Jerome 2 YJoshuaB.B.SSuma, MJules [address] [place] [phone] Scheduled Procedures Name Priority Associated Diagnoses Date/Time ESOPHAGOGASTRODUODENOSCOPY Cirrhosis Alc oholic (HCC) 02/10/2022 8:45 AM CDT Hypertension Portal (HCC) documented as of this encounter Procedures Procedure Name Priority Date/Time Associated Diagnosis Comme nts GENERAL SURGERY Routine 03/12/2021 11:00 AM Resul ts for this IMAGE EXAM PHYSICIAN/INTERNIST procedure are i n the results section. documented in this encounter Results Non-Radiology Image-General Surgery Image Exam (03/12/2021 11:00 AM PHYSICIAN/INTERNIST) Specimen (Source) Anatomical Location Collection Method / Collectio n Time Received Time / Laterality Volume Narrative IIMS - 03/13/2021 6:34 PM PHYSICIAN/INTERNIST This order has been created and auto-finalized [...] COVID19 Pending 03/12/2021 03/12/2021 03/12/2021 7:32 PM PHYSICIAN/INTERNIST documented as of this encounter Care Teams Barrel Bridge Assembler Relationship Specialty Start Date End Date Elsewhere, Pcp PCP - General Family Medicine 03/10/20 11/30/21 documented as of this encounter
--- OUTSIDE RECORDS SUMMARY | 2022-01-31 04:37 | XMS_ITS | Encounter Summary ---
:1990 Author Organization [facility] [place] 2] Address [address] [place] [address] Phone Care Team Providers Name Role Phone Unavailable Primary Care Provider Unavailable Reason for Visit Reason Comments Abdominal Pain Encounter Details Date Type Department Care Team Description 07/08/2021 Emergency [facility] Emergency Daniel Doe, Ascites due to Department alcoholic hepatitis [address] [facility] [address] R1.[address] [place], [place] [phone] Social History Tobacco Use Types Packs/Day Years Used Date Smoking Tobacco: Never Assessed Sex Assigned at Date Recorded Not on file COVID-19 Exposure Response Date Recorded In the last 10 days, have you been in contact with No / Unsu re 07/08/2021 9:38 AM BUILDING CONSTRUCTION TEACHER someone who was confirmed or suspected to have Coronavirus/COVID-19? documented as of this encounter Last Filed Vital Signs Vital Sign Reading Time Taken Comments Blood Pressure 114/67 07/08/2021 4:03 PM BUILDING CONSTRUCTION TEACHER Pulse 82 07/08/2021 4:03 PM BUILDING CONSTRUCTION TEACHER Temperature 36.9 ??C (98.5 ??F) 07/08/2021 6:31 AM BUILDING CONSTRUCTION TEACHER Respiratory Rate 16 07/08/2021 4:03 PM BUILDING CONSTRUCTION TEACHER Oxygen Saturation 98% 07/08/2021 4:03 PM BUILDING CONSTRUCTION TEACHER Inhaled Oxygen Concentration - - Weight - - Height - - Body Mass Index - - documented in this encounter Discharge Instructions Discharge Jarek Pang MD - 07/08/2021 4:58 PM CST You [...] was a pleasure caring for you today! DING CONSTRUCTION TEACHER AttachmentsThe following attachments cannot be sent through Care Everywhere. Fluid in the Belly (Ascites) Discharge Instructions (Irish)documented in this encounter Medications at Time of [...] 50 mg Take 50 mg by 0 oral TABS mouth every 6 hours as [...] of alcoholic cirrhosis who was transferred to [facility] ED on 07/08/21 from [place] [facility] with pain and altered mental status. [...] who has known her for many years. TEST PILOT shows that she most recently filled this on 06/19/21. Patient would also strongly prefer that we prescribe her something for insomnia (something other than melatonin). Do not plan on prescribing pharmacotherapyfor insomnia at this time consider recent altered mental status and complexity of her medical history. Recommended she discuss this further with her PCP and/or air intercept controller supervisor. ?? Ervin Childs MD, 07/08/2021 4:19 PM [...] do. She usually lives in [facility] with her boyfriend. Patient stated her mom [...] who has known her for many years. TEST PILOT shows that she most recently filled this [...] Psychosocial History: Lives with her boyfriend in [place], [place]. Denies alcohol use. Denies illicit drug [...] ?? Ervin Childs MD 07/08/2021 15:54 ?? 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 Patient reports [...] 07/08/2021 2:57 PM Emergency Medicine Resident PGY-1 DING CONSTRUCTION TEACHER Grazyna Delgadillo RN - 07/08/2021 1:19 PM CST Initial Utilization review screening completed. Patient appears to be appropriate for INPATIENT based on ammonia 110 I spoke with provider regarding inpt vs obs, advising obs appropriate, order to remain obs Final order/decision will be based upon provider's assessment of patient. Garzyna Delgadillo ED RN Clinical Coordinator Pager: [phone] [employer] DING CONSTRUCTION TEACHER Evon Claros RN - 07/08/2021 1:07 PM CST ED to IP Nursing Handoff Note S (Situation) Reason for Admission: 1. Ascites due to alcoholic hepatitis [facility] Precautions/Isolation: Standard Suspected Infection/Sepsis: No Restraints: None [...] NA RN: Evon Claros RN Extension #: [id number] Daniel Larsen - 07/08/2021 12:04 PM CST Parris Knight, patient's mother, would like an update of her daughters condition. Daniel Guerrero MD - 07/08/2021 7:33 AM CST ED Faculty Attestation and Note Catia Carias 30 y.o. female [id number] FACULTY ATTESTATION I Hiro Doe MD, performed [...] the hospitalist. Their care was signed out [id number] with the oncoming provider Dr. Lindsay. Final Clinical Impression Abdominal pain, unclear etiology Disposition and Plan Final disposition to be determined by oncoming provider Currently planning for admission to [facility] Jessica Moyer MD, 07/08/2021 7:13 AM Emergency Medicine Resident PGY-1 DING CONSTRUCTION TEACHER Analilia Espitia RN - 07/08/2021 7:09 AM CST Pt transferred here from [facility] due to liver failure. Pt has been to multiple EDs in the last few days after running out of pain medication. 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 ULT GALLBLADDER Routine 07/08/2021 12:13 Results for this PM BUILDING CONSTRUCTION TEACHER procedure are i n the results section. ED US STAT 07/08/2021 10:30 Results for this ABDOMINAL/GALLBLADDER AM BUILDING CONSTRUCTION TEACHER proced ure are in the results section. EXTRA TUBE - LAVENDER Routine 07/08/2021 7:28 AM Results for this BUILDING CONSTRUCTION TEACHER procedure are i n the results section. PC FREE STANDING Routine 07/08/2021 7:28 AM Resul ts for this BLOOD DRAW BY BUILDING CONSTRUCTION TEACHER procedure are in VENIPUNCTURE the results section. PC FREE STANDING Routine 07/08/2021 7:28 AM Resul ts for this BLOOD DRAW BY BUILDING CONSTRUCTION TEACHER procedure are in VENIPUNCTURE the results section. PC ELECTROLYTES PANEL STAT 07/08/2021 7:27 AM Results for this BUILDING CONSTRUCTION TEACHER procedure are i n the results section. TC LAB ER STAT STAT 07/08/2021 7:27 AM Results for this URINALYSIS BUILDING CONSTRUCTION TEACHER procedure are i n the results section. PROTHROMBIN (PT) & STAT 07/08/2021 7:27 AM Res ults for this INR BUILDING CONSTRUCTION TEACHER procedure are i n the results section. PC LAB TEST Routine 07/08/2021 7:27 AM Results for this BUILDING CONSTRUCTION TEACHER procedure are i n the results section. PC AMMONIA STAT 07/08/2021 7:27 AM Results f or this BUILDING CONSTRUCTION TEACHER procedure are i n the results section. LIPASE STAT 07/08/2021 7:27 AM Results f or this BUILDING CONSTRUCTION TEACHER procedure are i n the results section. PANEL HEPATIC STAT 07/08/2021 7:27 AM Results for this FUNCTION BUILDING CONSTRUCTION TEACHER procedure are i n the results section. documented in this encounter Results COVID-19 SURVEILLANCE (07/08/2021 1:32 PM BUILDING CONSTRUCTION TEACHER) [facility] Method Time Signature COVID-19 Not Detected Not Detected [facility] Comment: This test was developed and its performa nce characteristics determined by [employer]. This testing, RT-PCR, has been authorized by [...] Laterality Nasopharyngeal Swab 07/08/2021 1:32 07/08 PM BUILDING CONSTRUCTION TEACHER 1:40 PM BUILDING CONSTRUCTION TEACHER Narrative [facility] - 07/08/2021 2:11 PM BUILDING CONSTRUCTION TEACHER Is the patient a healthcare employee: No Is the patient a [facility]) Employee : No Daniel Doe MD LABORATORY Performing Organization Address City/State/ZIP Code Phon e Number [facility] [place] [address] GALLBLADDER (07/08/2021 12:13 PM BUILDING CONSTRUCTION TEACHER) Anatomical Region Laterality Modality Abdomen Ultrasound Specimen (Source) Anatomical Collection Method Collection Time Re ceived Time Location / / Volume Laterality 07/08/2021 12:53 PM BUILDING CONSTRUCTION TEACHER Impressions 07/08/2021 1:17 PM BUILDING CONSTRUCTION TEACHER Impression: Biliary sludge without shadowing gallstones. No sonographic findings to suggest acute cholecystitis. I have personally reviewed the image(s) and initial interpretation, and I agree with the findings as documented by the resident/fellow. Reading Radiologist: Daron Mccurdy Reading Resident: Gerard Webb Narrative 07/08/2021 1:17 PM BUILDING CONSTRUCTION TEACHER Indication: sludge on ED u/s, chronic abd [...] ULT ED US ABDOMINAL/GALLBLADDER (07/08/2021 10:30 AM BUILDING CONSTRUCTION TEACHER) Anatomical Region Laterality Modality Ultrasound Specimen (Source) Anatomical Location Collection Method / Collectio n Time Received Time / Laterality Volume Narrative 07/08/2021 1:12 PM BUILDING CONSTRUCTION TEACHER ED Abdomen/Gallbladder Ultrasound Indications: Abdominal pain Window: [...] CBC WITH PLTS/AUTO DIFF (07/08/2021 7:28 AM BUILDING CONSTRUCTION TEACHER) [facility] Method Time Signature WBC 5.29 4.00 - [facility] 10.00 k/cmm RBC 1.93 (L) 3.90 - [facility] 5.20 m/cmm Hgb 7.0 (AA) 11.5 - [facility] 15.7 g/dL Hematocrit 21.2 (L) 34.0 - [facility] 45.0 % MCV 109.8 (H) 80.0 - [facility] 100.0 fL MCH 36.3 (H) 25.0 - [facility] 32.0 pg MCHC 33.0 31.0 - [facility] 36.0 g/dL RDW 13.7 11.5 - [facility] 14.5 % Plt 74 (L) 150 - 400 [facility] k/cmm MPV 9.7 6.5 - 12.5 [facility] fL Automated Abs 3.54 1.70 - [facility] Neutrophil 6.50 k/cmm Comment: Preliminary ANC, Final Result t o Follow Abs Immature Granulocyte 0.01 0.00 - 0.09 k/cmm [facility] Comment: The Immature Granulocyte Absolu te count contains metamyelocytes and myelocytes. Abs Neutrophil 3.54 1.70 - 6.50 k/cmm [facility] LA B Abs Lymphocyte 1.21 0.80 - 4.00 k/cmm [facility] B Abs Monocyte 0.40 0.20 - 1.00 k/cmm [facility] Abs Eosinophil 0.10 0.00 - 0.60 k/cmm [facility] LA B Abs Basophil 0.03 0.00 - 0.20 k/cmm [facility] Orin Cell Slight [facility] Specimen Anatomical Collection Method Collection Time Receive d Time (Source) Location / / Volume Laterality Blood 07/08/2021 7:28 AM 9:32 BUILDING CONSTRUCTION TEACHER AM BUILDING CONSTRUCTION TEACHER Narrative [facility] - 07/08/2021 10:29 AM BUILDING CONSTRUCTION TEACHER Critical value for Hgb called to and julisa d back by Charly Bowman RN in ER A at 07/08/2021 10:29:44 BUILDING CONSTRUCTION TEACHER by Ines Bal Lance . Daniel Doe MD LABORATORY Performing Organization Address City/State/ZIP Code Phon e Number [facility] [place] [address] EXTRA TUBE - LAVENDER (07/08/2021 7:28 AM BUILDING CONSTRUCTION TEACHER) athologist Signature LAVENDER TUBE Stored [facility] Comment: Lavendar (EDTA) tubes collected at [facility] are stored for 3 days from the collection date. Specimen Anatomical Collection Method Collection Time Receive d Time (Source) Location / / Volume Laterality Blood 07/08/2021 7:28 AM 2 7:35 BUILDING CONSTRUCTION TEACHER AM BUILDING CONSTRUCTION TEACHER Narrative [facility] - 07/08/2021 7:35 AM BUILDING CONSTRUCTION TEACHER Ordered by ~[id number] Provider Unknown LABORATORY Performing Organization Address City/[facility]/ZIP Code Phon e Number [facility] [place] [address] EXTRA TUBE - SST (07/08/2021 7:28 AM BUILDING CONSTRUCTION TEACHER) athologist Signature SST TUBE Stored [facility] Comment: SST tubes (Serum Separator) are stored in the lab for 3 days from the collection date. Specimen Anatomical Collection Method Collection Time Receive d Time (Source) Location / / Volume Laterality Blood 07/08/2021 7:28 AM 2 7:35 BUILDING CONSTRUCTION TEACHER AM BUILDING CONSTRUCTION TEACHER Narrative [facility] - 07/08/2021 7:35 AM BUILDING CONSTRUCTION TEACHER Ordered by ~[id number] Provider Unknown LABORATORY Performing Organization Address City/[facility] Phon e Number [facility] [place] [address] TEST URINE (07/08/2021 7:27 AM BUILDING CONSTRUCTION TEACHER) athologist Signature Ur Negative Negative [facility] UPT performed [facility] at Comment: Test performed by: [facility] ED Clinical Laboratory R1.[address] [place] [id number] Specimen Anatomical Collection Method Collection Time Receive d Time (Source) Location / / Volume Laterality Urine 07/08/2021 7:27 AM 2 BUILDING CONSTRUCTION TEACHER 10:53 AM BUILDING CONSTRUCTION TEACHER Daniel Doe MD LABORATORY Performing Organization Address City/[facility]/ZIP [facility] Phon e Number [facility] [place] [address] (ABNORMAL) URINALYSIS,TOTAL (07/08/2021 7:27 AM BUILDING CONSTRUCTION TEACHER) [facility] gist Method Time Signature Color YELLOW YELLOW [facility] Appearance CLEAR CLEAR [facility] Urine Glucose NEGATIVE NEGATIVE [facility] mg/dL Bili UA TRACE (A) NEGATIVE [facility] Ketones NEGATIVE NEGATIVE [facility] mg/dL Specific [place] 1.024 1.003 - [facility] 1.030 Blood Ur NEGATIVE Neg-Trace [facility] PH Urine 6.5 5.0 - 7.0 [facility] Protein Ur TRACE Neg-Trace [facility] mg/dL Urobilinogen NORMAL NORMAL EU/dL [facility] Nitrite Ur NEGATIVE NEGATIVE [facility] Leuk Est NEGATIVE Neg-Trace [facility] WBC Ur 0-5 0 - 5 perHPF [facility] RBC Ur 0-3 0 - 3 perHPF [facility] SQ EPITH 0-5 0 - 5 perHPF [facility] Mucus 1+ perLPF [facility] Urinalysis [facility] Performed at: Specimen Anatomical Collection Method Collection Time Receive d Time (Source) Location / / Volume Laterality Urine 07/08/2021 7:27 AM 2 8:09 BUILDING CONSTRUCTION TEACHER AM BUILDING CONSTRUCTION TEACHER Karina Israel MD LABORATORY Performing Organization Address City/[facility] Phon e Number [facility] [place] [address] (ABNORMAL) PROTHROMBIN (PT) & INR (07/08/2021 7:27 AM BUILDING CONSTRUCTION TEACHER) athologist Signature PT 39.2 (H) 9.0 - 12.5 [facility] sec INR 3.3 (H) 0.8 - 1.1 [facility] Specimen Anatomical Collection Method Collection Time Receive d Time (Source) Location / / Volume Laterality Blood 07/08/2021 7:27 AM 2 7:47 BUILDING CONSTRUCTION TEACHER AM BUILDING CONSTRUCTION TEACHER Karina Israel MD LABORATORY Performing Organization Address City/[facility]/ZIP Code Phon e Number [facility] [place] [address] (ABNORMAL) AMMONIA (07/08/2021 7:27 AM BUILDING CONSTRUCTION TEACHER) P athologist Signature Ammonia 110 (H) 11 - 51 [facility] mcmol/L Specimen Anatomical Collection Method Collection Time Receive d Time (Source) Location / / Volume Laterality Blood 07/08/2021 7:27 AM 2 7:53 BUILDING CONSTRUCTION TEACHER AM BUILDING CONSTRUCTION TEACHER Narrative [facility] - 07/08/2021 8:18 AM BUILDING CONSTRUCTION TEACHER Send specimen on ice! Karina Israel MD LABORATORY Performing Organization Address City/State/ZIP Code Phon [place] [address] LIPASE (07/08/2021 7:27 AM BUILDING CONSTRUCTION TEACHER) P athologist Signature Lipase 14 13 - 60 IU/L [facility] Specimen Anatomical Collection Method Collection Time Receive d Time (Source) Location / / Volume Laterality Blood 07/08/2021 7:27 AM 7:47 BUILDING CONSTRUCTION TEACHER AM BUILDING CONSTRUCTION TEACHER Karina Israel MD LABORATORY Performing Organization Address City/State/ZIP Code Phon [place] [address] (ABNORMAL) PANEL HEPATIC FUNCTION (07/08/2021 7:27 AM BUILDING CONSTRUCTION TEACHER) P athologist Signature Total Protein 5.3 (L) 6.4 - 8.3 [facility] g/dL Albumin 3.0 (L) 3.8 - 5.1 [facility] g/dL Bili Total 7.1 (H) 0.1 - 1.2 [facility] mg/dL Bili Direct 2.8 (H) 0.0 - 0.3 [facility] mg/dL Alk Phos 150 (H) 35 - 104 [facility] IU/L ALT (SGPT) 18 <=33 IU/L [facility] AST(SGOT) 47 (H) 5 - 40 [facility] IU/L Specimen Anatomical Collection Method Collection Time Receive d Time (Source) Location / / Volume Laterality Blood 07/08/2021 7:27 AM 7:47 BUILDING CONSTRUCTION TEACHER AM BUILDING CONSTRUCTION TEACHER Karina Israel MD LABORATORY Performing Organization Address City/State/ZIP Code Phon [place] [address] (ABNORMAL) ED CHEMISTRY LABS(NA,K,CL,CO2,GLU,CREAT,CA-IONIZED,ANION GAP) (07/08/2021 7:27 AM BUILDING CONSTRUCTION TEACHER) Analysis Performed At Patho logist Time Signature Sodium 140 135 - 148 [facility] mEq/L Chloride 111 (H) 92 - 108 [facility] mEq/L AnGap 7 (L) 8 - 16 [facility] mEq/L Glucose 83 70 - 100 [facility] mg/dL ICA, Actual 4.34 (L) 4.40 - [facility] 5.20 mg/dL ICA, pH 4.51 4.40 - [facility] Corrected 5.20 mg/dL Creatinine 0.67 0.50 - [facility] 1.00 mg/dL BICARB 22 22 - 26 [facility] mEq/L eGFR, High >120 >=60 [facility] ml/min/1.7 3m2 Comment: Calculated using CKD-EPI equati on eGFR, Low 118 >=60 ml/min/1.73m2 [facility] Comment: Calculated using CKD-EPI equati on Potassium 4.0 3.5 - 5.3 mEq/L [facility] Specimen Anatomical Collection Method Collection Time Receive d Time (Source) Location / / Volume Laterality Blood 07/08/2021 7:27 AM 7:36 BUILDING CONSTRUCTION TEACHER AM BUILDING CONSTRUCTION TEACHER Karina Israel MD LABORATORY Performing Organization Address City/State/ZIP Code Phon e Number [facility] [place] [address] documented in this encounter Visit Diagnoses Diagnosis Ascites due to alcoholic hepatitis - [facility] documented in this encounter Administered Medications Inactive Administered Medications - up to 3 most recent administrations Medication Order MAR Action Action Date Dose Rate Site cefTRIAXone (ROCEPHIN) 1 g in New Bag 07/08/2021 1:32 PM BUILDING CONSTRUCTION TEACHER 1 g 200 mL/hr NaCl 0.9% 100 mL IVPB 1 g, Indication (Select One): Infection - Suspected, SITE (Select all that apply): GI/Intra-abdominal, Cultures Ordered? No, Intravenous, ONE TIME, 1 dose, On Wed07/08/21 at 1305 HYDROmorphone PF (DILAUDID) 1 mg/mL injection Given 4:43 PM BUILDING CONSTRUCTION TEACHER 0.5 mg 0.5 mg 0.5 mg, IV Push, ONE TIME, 1 dose, On Wed07/08/21 at 1640 lactulose (KRISTALOSE) package 20 g Given 07/08/2021 3:33 PM BUILDING CONSTRUCTION TEACHER 20 g 20 g, Oral, TID, First dose on Wed07/08/21 at 1450, Until Discontinued oxyCODONE (ROXICODONE) tablet 5 mg Given 07/08/2021 10:39 AM BUILDING CONSTRUCTION TEACHER 5 mg 5 mg, Oral, ONE TIME, 1 dose, On Wed07/08/21 at 1030 documented in this encounter Active and Recently Administered Medications Times are shown in BUILDING CONSTRUCTION TEACHER. Scheduled Medication Order 07/06/2021 07/07/2021 07/08/2021 cefTRIAXone (ROCEPHIN) 1 g in NaCl 0.9% 100 mL IVPB (COMPLETED) 1332 (New Bag - Provider: Evon Claros RN)1533 (Infusion completed - Provider: Evon Claros RN) 1 g, Indication (Select One): Infection - [...]
--- OUTSIDE RECORDS SUMMARY | 2022-01-31 04:37 | XMS_ITS ---
:1990 Author Care Team Providers Name Role Phone STEPHANIE RODRIGUEZ AMILCAR Nurse Practitioner [phone] Parris Knight (mother) Patient Designee [phone] HEYDI BHAGAT MD Transplant Records Clerk [phone] [facility] Palliative Care [phone] TAYLOR PAUL RN Palliative Care [phone] LUIS GRANADOS [facility] Palliative Care [phone] DOMINICK TODD MD Primary Care Provider [phone] [facility] Vice President Of Marketing [phone] Allergies Code Code System Name Reaction Severity [...] None recorded. Past Encounters 12/01/2021 Stephanie Rodriguez CNP: [address] [place] [address], Ph. 11/27/2021 Taylor Paul RN: [address] [place] [address], Ph. 11/05/2021 Stephanie Rodriguez CNP: [address] [facility] [place] [address], Ph. 10/14/2021 Evi Biggs LPN: [address] [place] [address], Ph. [phone] Social History None recorded. Vaccine List None recorded. Plan of Care Patient Instructions Patient instructed to call with [employer] ns or concerns. Patient instructed to call with [employer] ns or concerns. Reminders Provider Appointments None recorded. ? ? Lab None recorded. ? ? Referral None recorded. ? ? Procedures None recorded. ? ? Surgeries None recorded. ? ? Imaging None recorded. ? ? Vitals Height Weight BMI Blood Pressure 5 ft 2 in 133 lbs 24.3 kg/m2 98/58 mm[Hg]
--- OUTSIDE RECORDS SUMMARY | 2022-01-31 04:37 | XMS_ITS | Encounter Summary ---
:1990 Author Care Team Providers Name Role Phone Ervin Schroeder MD Primary Care Provider [phone] Parris Knight (Mother) Patient Designee [phone] Jairo Rodriguez PATIENT SERVICES COORDINATOR Nurse Practitioner [phone] Matthew Rollins MD Transplant Watch Electrician [phone] [facility] Care Team Palliative Care [phone] Taylor Paul RN Palliative Care [phone] Gela Goff [facility] Palliative Care [phone] Zenobia Kirby [facility] Senior Quality Assurance Specialist [phone] Reason for Visit JAN Continuation of Care [...] None reported 38. Assistance with Stairs: N 28. Assistance with Walking: N 18. Has Reliable Social/Emotional Support: Y 50. Uses Assistive Device(s): N 32. Assistance [...] Status Unknown. Past Encounters 12/01/2021 Jairo Rodriguez CNP: [address] [place] [address], Ph. 11/27/2021 Taylor Paul RN: [address] [place] [address], Ph. 11/05/2021 Jairo Rodriguez, OPTICAL INSTRUMENT INSPECTOR: [address], [place] [address], Ph. History of Present Illness Note: <div>provider called 3 times, no answer. </div><div>Asking [facility] to try and reschedule appt. </div><div>No services performed.
</div> Review of Systems None recorded. Physical Exam None recorded.
--- OUTSIDE RECORDS SUMMARY | 2022-01-31 04:37 | XMS_ITS | Encounter Summary ---
:1990 Author Care Team Providers Name Role Phone Ervin Schroeder MD Primary Care Provider [phone] Parris Knight (Mother) Patient Designee [phone] Jairo Rodriguez HEATSET WINDER OPERATOR Nurse Practitioner [phone] Matthew Rollins MD Transplant Childcare Attendant [phone] [facility] Care Team Palliative Care [phone] Taylor Paul RN Palliative Care [phone] Gela Goff [facility] Palliative Care [phone] Zenobia Kirby [facility] Plant Operator/Shift Supervisor [phone] Reason for Visit JAN Initial Assessment and Plan Assessment Note #[id number] Patient is seen for an initial visit and assessment by [facility]: This is a joint visit with Ankita [facility] Patient states that she is currently on [...] Inhale 1 each as needed. Med Name: [employer] ada Cannabis Flower, smoking once weekly as [...] Functional Status Unknown. Past Encounters 11/05/2021 Jairo Rodriguez, MEDICAL IMAGING TECH: [address] [place], [place] [address], Ph. 10/14/2021 Evi Biggs LPN: [address] [place] [address], Ph. [phone] History of Present Illness None recorded. Review of Systems None recorded. Physical Exam ? General Adult Exam Reported By: Patient
--- OUTSIDE RECORDS SUMMARY | 2022-01-31 04:37 | XMS_ITS | Encounter Summary ---
:1990 Author Organization [facility] Address [address] [place] [address] Care Team Providers Name Role Phone [facility] Primary Care Provider [phone] [facility] Unavailable [phone] Encounter Details Date Type Department Care Team [...] filedocumented in this encounter Care Teams Label Coder Relationship Specialty Start Date End Date [facility] PCP - General 09/30/18 [place] [address] [facility] [address] [facility] PCP - Primary Care Clinic [address] [place] [address] [place] [address] documented as of this encounter
--- OUTSIDE RECORDS SUMMARY | 2022-01-31 04:37 | XMS_ITS | Encounter Summary ---
:1990 Author Organization [facility] Address [address] [place] [address] Care Team Providers Name Role Phone [facility], [facility] Primary Care Provider [phone] [facility] Unavailable [phone] Reason for Referral (Routine) - Closed Specialty Diagnoses / Procedures Referred By Contact Refer red To Contact Procedures Gonzalo Tavera MD Return to previous diet [address] [place], [place] [address] Referral ID Status Reason Start Date Expiration Date Visits Requ ested Visits Authorized [id number] Closed 10/02/2018 10/02/2019 1 1 (Routine) - Closed Specialty Diagnoses / Procedures Referred By Contact Refer red To Contact Procedures Gonzalo Tavera MD Normal activity as tolerated [address] [place], [place] [address] Referral ID Status Reason Start Date Expiration Date Visits Requ ested Visits Authorized [id number] Closed 10/02/2018 10/02/2019 1 1 (Routine) - Closed Specialty Diagnoses / Procedures Referred By Contact Refer red To Contact Gonzalo Tavera MD [facility], [facility] [address] [place], [place] [address] [address] [place] [address] Fax: Referral ID Status Reason Start Date Expiration Date Visits Requ ested Visits Authorized [id number] Closed 10/02/2018 10/02/2019 1 1 Question Answer Specify time frame for follow up? 1 Week (Routine) - Closed Specialty Diagnoses / Procedures Referred By Contact Refer red To Contact Procedures Gonzalo Tavera MD [facility] [place] [address] Referral ID Status Reason Start Date Expiration Date Visits Requ ested Visits Authorized [id number] Closed 10/02/2018 10/02/2019 1 1 Reason for Visit Inpatient Admission Specialty Diagnoses / Procedures Referred By Contact Refer red To Contact Diagnoses Acute hepatitis Hepatitis, Acute Referral ID Status Reason Start Date Expiration Date Visits Requ ested Visits Authorized [id number] 1 1 Encounter Details Date Type Department Care Team Description 09/30/2018 - Hospital Encounter W2 Hm-Hospitalist [facility] [place] [address] Acute hepatitis 10/02/[address] [place] [address] Gonzalo Tavera MD [address] [place], [place] [address]kristy [place] [address] [place] [address] Social History Tobacco Use Types Packs/Day Years [...] Tavera MD - 10/02/2018 12:02 PM CDT [facility] ([facility] HOSPITAL DISCHARGE SUMMARY Patient Name: Catia Carias Date of : 1990 Admission Date: 09/30/2018 Discharge Date: 10/02/2018 She will be discharged to home. Primary care: [facility] Consultants: 1. Gastroenterology 2. Orthopedics DISCHARGE [...] to Excess Tylenol Use:??Presented as direct admissionfrom [address] in [place]??with??abdominal pain and vomiting??x 2??days. ??She had been [...] open reduction internal fixation on 08/29/[address]??Dr[address] Omar Rodriguez. ??Has been having [...] Referral Priority: Routine Referred to Provider: [facility] Number of Visits Requested: 1 CODE [...] Tavera MD, Hospitalist Internal Medicine and Pediatrics [facility] Time: over 30 minutes documented [...] live longer. For further assistanceplease call the [employer] Helpline at [phone] or go to their website [email or web address] [employer] acquired by [employer]. documented in this encounter Medications at Time [...] 10/02/2018 12:02 PM CDT Catia Carias 1990 [id number] P: Discharge A: Discharged ambulatory to home at 1145 escorted by self I: Discharge information and arrangements included: review of written discharge instructions, belongings list completed. R:Patient expressed understanding of information.. Andreas Paul RN - 10/02/2018 3:52 AM CDT Med-Surg Care Progression Note Type: Shift to shift summary [id number] Length of stay: 2 days Code Status: [...] with questions or concerns. Criselda Coker MD [facility] Digestive Health [phone] Evi Londono RN - 10/01/2018 12:22 PM [...] Tavera MD - 10/01/2018 10:32 AM CDT [facility] PROGRESS NOTE CHIEF COMPLAINT: Arm pain SUBJECTIVE: [...] Tylenol Use: Presented as direct admission from [address] in [place] with abdominal pain and vomiting x 2 [...] open reduction internal fixation on 08/29/[address] Omar Rodriguez. Has been [...] pain remains uncontrolled may need to consider POULTRY HUSBANDRY TEACHER. Consulted Orthopedics for assistance with management. Defer further imaging to Orthopedics. I'm worried about progressive or new ulnar nerve impingement or damage. Will start gabapentin 300 mg TID. 3. Recent Pancreatitis: Was admitted at [address] in [place] 09/08/2018 - 09/11/2018 for pancreatitis. Etiology was [...] Tavera MD, Hospitalist Internal Medicine and Pediatrics [facility] Pager: [phone] SKIN: Surgical Incision Left;Posterior Elbow (Active) No [...] DVT/Anticoagulation Progression: [facility] because [...] Progression: Not applicable Spoke with Dung from [employer] this AM. He wants us to check LFTs and INR at 2300 tonight, these have been scheduled. Someone from [employer] will call back around 0000 tonight [...] for this time. Notified MD as well. Ciara Booker RN Ciara Booker RN - [...] to call for help, name of assigned customer care consultant, initialphysician orders, hourly rounding procedures, belongings checklist, [...] stability. The patient is direct admission from [facility] with acute hepatitis likely due to excess [...] 11:00 AM on . Per labs from [facility] LFTs are elevated reveals ALt of 624, AST of 3,955, and ALKP of 186. Total bilirubin is 1.2. Creatinine is 0.56, sodium is 136, HCO3 of 16, and potassium 4.5. INR is 1.5. Acetaminophem level is < 3. Lipase is 78.5. Serum test is negative. Lactic acid level is 2.9. Suspect livery dysfunction is contributing lactic acidosis at outside facility. [facility] Physician discussed case w/ GI Physician Dr. Davis who recommended pt be transferred [facility] as direct admission and be started [...] far since being started on it at [facility] in conjuction with staff mine warfare officer and Pharmacist. Has received initial bag of [...] 09/30/2018 3:39 AM CDT Received report from [facility] in [place]. 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 LFT's: AST 3955 ALT 624 Alk Phos 186 Lactate 2.9 Pt received 1 liter LR in the ED and the N-acetyl cysteine was started. First dosing was 10253 mg in200 ml, completed in the ED, and 3380mg in 500 ml was initiated before transport. documented in this encounter H&P Notes Gonzalo Tavera MD - 09/30/2018 9:58 AM CDT [facility] ADMISSION HISTORY AND PHYSICAL Patient Name: Catia Carias Address: [address] [place] [id number] Age: 28 y.o. Sex: Female Admission Date/Time: 09/30/2018 4:11 AM Primary Care Provider: [facility] Admitting provider: [facility]-Hospitalist, Dr. Gonzalo Tavera Informant: patient as well [...] open reduction internal fixation on 08/29/[address] Catia states that she was discharged [...] Oxycodone. Catia ended up being admitted at [address] 09/08/18 - 09/11/18 for acute pancreatitis which initially required Morphine POULTRY HUSBANDRY TEACHER for pain c ontrol. Catia followed up [...] vomited 6 times therefore she went to [place] [address] emergency department to be evaluated. Mario Alberto kang states that she only has abdominal pain when she is vomiting. She vomited multiple times in the emergency department. She was transferred to [facility] for further evaluation by Gastroenterology and states [...] file Gets together: Not on file Attends jain service: Not on file Active member of [...] Tylenol Use: Presented as direct admission from [address] in [place] with abdominal pain and vomiting x 2 [...] open reduction internal fixation on 08/29/[address] Omar Rodriguez. Has been having uncontrolled neuropathic pain which has not responded to Gabapentin. Pain has minimally improved prior to admission with Percocet or Oxycodone. Treating pain with PRN IV Morphine. If pain remains uncontrolled may need to consider POULTRY HUSBANDRY TEACHER. Consulted Orthopedics for assistance with management. Defer further imaging to Orthopedics. I'm worried about progressive or new ulnar nerve impingement or damage. Will start gabapentin 300 mg TID. 3. Recent Pancreatitis: Was admitted at [address] in [place] 09/08/2018 - 09/11/2018 for pancreatitis. Etiology was [...] our joint decision making. Kimberly Rosas PA-C [facility] Service Pager: [phone] ADDENDUM: Chart reviewed. Patient seen and examined [...] Tavera MD, Hospitalist Internal Medicine and Pediatrics [facility] Pager: [phone] documented in this encounter Consult Notes Xuan Block APRN, LEAD SHOP OPERATOR - 09/30/2018 2:24 PM CDTAssociated Order(s): CONSULT ORTHOPEDIC SURGERY ORTHOPEDIC CONSULT CHIEF COMPLAINT: left arm nerve pain HISTORY of PRESENT ILLNESS: Catia Carias is a 28 y.o. year old female who had an orif of her left distal humerus in [place] on 08/29/18. She has had 2 f/u [...] Discussed with Hospital medicine. Xuan Block APRN, LEAD SHOP OPERATOR Felicita Dia PA-C - 09/30/2018 10:19 AM CDTAssociated Order(s): CONSULT GASTROENTEROLOGY Images from the original note were not included. GI CONSULT SERVICE CONSULT NOTE Patient Name: Catia Carias Admission Date/Time: 09/30/2018 4:11 AM [facility] Requesting Physician: Dr. Conrad [facility] Attending Physician: [facility]-Hospitalist I was asked to see this patient at the request of Dr. Conrad for evaluation of acute hepatitis. REASON FOR CONSULTATION: Acute hepatitis CC: abdominal pain, nausea and vomiting HISTORY OF PRESENT ILLNESS: 28 y.o. female with a history of ORIF of left upper extremity and acute pancreatitis of unclear etiology 10 days postop who directly admitted from [facility] ED with acute hepatitis on 09/30/2018. [...] several times a week. She presented to [facility] ED 09/29 with 2 3 days [...] on NAC protocol. She was transferred to [facility]. PAST MEDICAL HISTORY: Past Medical History: [...] will continue to follow. Felicita Dia PA-C [facility] Digestive Health Pager: Dctio Weekends and after 5 p.m., call [phone] documented in this encounter Nursing Notes Jyoti [...] d/c. Should d/c needs arise, please page/call Trust Operations Assistant to update. Care management is available should further needs arise. Barriers to discharge: Medical stability Care management will continue to follow. Ivet Bob RN Case Manager 2W Observation Unit Pager: [phone] documented in this encounter Miscellaneous Notes Result Encounter Note - Sammy Mack PA-C - 10/02/2018 12:02 PM CDT SAMMY Screen positive. Forwarded to Dr. Tavera. Sammy Mack PA-C [facility] Service Pager: [phone] Med Reconciliation - Emperatriz Corral - 09/30/2018 1:52 PM CDT PHARMACY MEDICATION RECONCILIATION NOTE MEDICATION RECONCILIATION on admission by pharmacy has been completed. Prior to admission medications were reviewed with patient and [facility] presciption refill information. The ASSISTANT SCIENTIST medication list has been updated and reflected in the chart below. Please use the ASSISTANT SCIENTIST medication section for ordering home doses during admission. Medication related issues including pertinent changes made to the ASSISTANT SCIENTIST list by pharmacy: (discrepancies, interactions, additions, removal, [...] daily before a meal. Authorized by: Catia rBaxton MD Quanity: 30 tablets Refill: 2 refills [...] this patient. Loreta Pino, Pharm D Phone #:[phone] Time spent reconciling meds:20 min documented in [...] Signature PROTIME 12.9 10.0 - 13.0 10/02/[address] [facility] sec. 8:58 AM CDT HEALTH LABORATORY INR 1.2 1.0 - 1.2 10/02/[address] [facility] 8:58 AM CDT HEALTH LABORATORY Specimen Anatomical Collection Method Collection Time Receive d Time (Source) Location / / Volume Laterality Blood 10/02/2018 8:23 AM 9 8:40 CDT AM CDT Kimberly Rosas PA-C COAGULATION ORDERABLE Performing Organization Address [facility] Phon e Number [facility] [address] [place] [address] LABORATORY Smooth Muscle Antibody (10/02/2018 8:22 AM CDT) [facility] gist Method Time Signature Smooth Muscle Negative Negative 10/04/2018 [facility] Screen 10:17 AM CDT LABORATORIES Comment: ADDITIONAL INFORMATIO N This test was developed and its performa nce characteristics determined by [facility] in a manner co nsistent with CLIA requirements. This test has not been norah ared or approved by the U.S. Food and Drug Administration. Test Performed by: [facility] [address] [place], [place] [address] Specimen Anatomical Collection Method Collection Time Receive d Time (Source) Location / / Volume Laterality Blood 10/02/2018 8:22 AM 9 8:39 CDT AM CDT Criselda Coker MD SEND OUT ORDERABLE Performing Organization Address City/[facility]/ZIP [facility] Phon e Number [facility] [employer] [address] [place] [address] (ABNORMAL) CBC- Daily AM (10/02/2018 8:22 AM CDT)Only the most recent of2 resultswithin the time period is included. Patholo gist Method Time Signature WBC 7.5 4.3 - 10.8 10/02/[address] [facility] K/uL 8:45 AM [facility] RBC 3.77 (L) 4.20 - 10/02/[address] [facility] 5.40 M/uL 8:45 AM [facility] LABORATORY HEMOGLOBIN 13.0 12.0 - 10/02/[address] [facility] 16.0 gm/dL 8:45 AM [facility] LABORATORY HEMATOCRIT 39.2 36.0 - 10/02/[address] [facility] 48.0 % 8:45 AM [facility] LABORATORY MCV 104 (H) 80 - 100 10/02/[address] [facility] fl 8:45 AM [facility] LABORATORY MCH 35 (H) 27 - 33 pg 10/02/[address] [facility] 8:45 AM [facility] LABORATORY MCHC 33 33 - 36 10/02/[address] [facility] gm/dL 8:45 AM [facility] LABORATORY RDW 13.3 11.5 - 10/02/[address] [facility] 14.5 % 8:45 AM [facility] LABORATORY PLATELET COUNT 218 150 - 400 10/02/[address] [facility] K/UL 8:45 AM [facility] LABORATORY MPV 10.3 6.5 - 12 10/02/[address] [facility] 8:45 AM [facility] LABORATORY Specimen Anatomical Collection Method Collection Time Receive d Time (Source) Location / / Volume Laterality Blood 10/02/2018 8:22 AM 9 8:41 CDT AM CDT Marli Girard RN HEMATOLOGY ORDERABLE Performing Organization Address City/State/ZIP Code Phon e Number [facility] [address] [place] [address] LABORATORY Lipase (10/02/2018 8:22 AM CDT)Only the most recent of3 resultswithin the time period is included. P athologist Signature LIPASE 221 73 - 350 10/02/[address] [facility] IU/L 9:06 AM [facility] Specimen Anatomical Collection Method Collection Time Receive d Time (Source) Location / / Volume Laterality Blood 10/02/2018 8:22 AM 9 8:40 CDT AM CDT Kimberly Rosas PA-C CHEMISTRY ORDERABLE Performing Organization Address City/State/ZIP Code Phon e Number [facility] [address] [place] [address] LABORATORY (ABNORMAL) Basic Metabolic Profile Daily AM (10/02/2018 8:22 AM CDT)Only the most recent of4 resultswithin the time period is included. [facility] Method Time Signature SODIUM 140 136 - 145 10/02/[address] [facility] mmol/L 9:18 AM [facility] LABORATORY POTASSIUM 4.1 3.5 - 5.1 10/02/[address] [facility] mmol/L 9:18 AM [facility] LABORATORY CHLORIDE 107 98 - 112 10/02/[address] [facility] mmol/L 9:18 AM [facility] LABORATORY CARBON DIOXIDE 28 21 - 32 10/02/[address] [facility] mmol/L 9:18 AM [facility] LABORATORY BUN (UREA 1 (L) 7 - 24 10/02/[address] [facility] NITRO) mg/dL 9:18 AM [facility] LABORATORY CREATININE 0.35 (L) 0.55 - 10/02/[address] [facility] 1.02 mg/dL 9:18 AM [facility] LABORATORY EST GFR >60 >60 mL/min 10/02/[address] [facility] (CKD-EPI) 9:18 AM [facility] LABORATORY EST GFR IF >60 >60 mL/min 10/02/[address] [facility] AM 9:18 AM [facility] LABORATORY GLUCOSE 100 74 - 106 10/02/[address] [facility] mg/dL 9:18 AM [facility] LABORATORY CALCIUM, SERUM 8.6 8.5 - 10.1 10/02/[facility] mg/dL 9:18 AM [facility] LABORATORY ANION GAP 5.0 0.0 - 15.0 10/02/[address] [facility] mmol/L 9:18 AM [facility] LABORATORY Specimen Anatomical Collection Method Collection Time Receive d Time (Source) Location / / Volume Laterality Blood 10/02/2018 8:22 AM 9 8:40 CDT AM CDT Kimberly Rosas PA-C CHEMISTRY ORDERABLE Performing Organization Address City/State/ZIP Code Phon e Number [facility] [address] [place] [address] [phone] LABORATORY (ABNORMAL) Liver Profile (10/02/2018 8:22 AM CDT)Only the most recent of5 resultswithin the time period is included. Analysis Performed At Patho logist Time Signature ALT 271 (H) 12 - 68 10/02/[address] [facility] IU/L 9:18 AM T HEALTH LABORATORY ALKALINE 165 (H) 45 - 117 10/02/[address] [facility] P'TASE IU/L 9:18 AM T [facility] LABORATORY AST (SGOT) 274 (H) 12 - 37 10/02/[address] [facility] IU/L 9:18 AM T [facility] LABORATORY PROTEIN TOTAL 6.0 (L) 6.4 - 8.2 10/02/[address] [facility] g/dL 9:18 AM [facility] LABORATORY ALBUMIN 3.0 (L) 3.4 - 5.0 10/02/[address] [facility] g/dL 9:18 AM T [facility] LABORATORY BILIRUBIN-DIRE 0.56 (H) 0.05 - 10/02/[address] [facility] CT 0.24 mg/dL 9:18 AM [facility] LABORATORY BILIRUBIN-TOTA 1.2 (H) 0.2 - 1.0 10/02/[address] [facility] L mg/dL 9:18 AM [facility] LABORATORY Specimen Anatomical Collection Method Collection Time Receive d Time (Source) Location / / Volume Laterality Blood 10/02/2018 8:22 AM 9 8:40 CDT AM CDT Kimberly Rosas PA-C CHEMISTRY ORDERABLE Performing Organization Address City/State/ZIP Code Phon e Number [facility] [address] [place] [address] LABORATORY Magnesium (10/02/2018 8:22 AM CDT)Only the most recent of4 resultswithin the time period is included. athologist Signature Magnesium 2.0 1.8 - 2.4 10/02/[address] [facility] mg/dL 9:07 AM CDT HEALTH LABORATORY Specimen Anatomical Collection Method Collection Time Receive d Time (Source) Location / / Volume Laterality Blood 10/02/2018 8:22 AM 9 8:40 CDT AM CDT Robby Conrad MD CHEMISTRY ORDERABLE Performing Organization Address City/[facility]/ZIP [facility] Phon e Number [facility] [address] [place] [address] [place] [address] [phone] LABORATORY Potassium, Serum (10/01/2018 8:16 PM CDT)Only the most recent of3 resultswithin the time period is included. P athologist Signature POTASSIUM 4.2 3.5 - 5.1 10/01/[address] [facility] mmol/L 8:50 PM CDT HEALTH LABORATORY Specimen Anatomical Collection Method Collection Time Receive d Time (Source) Location / / Volume Laterality Blood 10/01/2018 8:16 PM 9 8:32 CDT PM CDT Marli Girard RN CHEMISTRY ORDERABLE Performing Organization Address [facility] Phon e Number [address] [place] [address] LABORATORY (ABNORMAL) Acetaminophen (10/01/2018 4:43 PM CDT)Only the most recent of3 resultswithin the time period is included. Patholo gist Method Time Signature ACETAMINOPHEN 2 (L) 10 - 30 10/01/[address] [facility] (TYLENOL) ug/mL 5:34 PM CDT HEALTH LABORATORY Specimen Anatomical Collection Method Collection Time Receive d Time (Source) Location / / Volume Laterality Blood 10/01/2018 4:43 PM 9 5:07 CDT PM CDT Erika Silver DO CHEMISTRY ORDERABLE Performing Organization Address City/[facility]/ZIP Code Phon e Number [address] [place] [address] LABORATORY (ABNORMAL) IgG (10/01/2018 7:08 AM CDT) P athologist Signature IGG 530 (L) 700-1,600 10/01/[address] [facility] mg/dL 2:03 PM CDT HEALTH LABORATORY Specimen Anatomical Collection Method Collection Time Receive d Time (Source) Location / / Volume Laterality Blood 10/01/2018 7:08 AM 9 7:22 CDT AM CDT Criselda Coker MD CHEMISTRY ORDERABLE Performing Organization Address City/State/ZIP Code Phon e Number [facility] [place] [address] LABORATORY (ABNORMAL) SAMMY Screen (10/01/2018 7:08 AM CDT) Analysis Performed At Patho logist Time Signature SAMMY SCRN Positive (A) Negative 10/03/[address] [facility] 1:37 PM CDT HEALTH LABORATORY Specimen Anatomical Collection Method Collection Time Receive d Time (Source) Location / / Volume Laterality Blood 10/01/2018 7:08 AM 9 7:22 CDT AM CDT Criselda Coker MD CHEMISTRY ORDERABLE Performing Organization Address City/[facility]/ZIP Code Phon e Number [facility] [address] [address] LABORATORY XR ELBOW LT (09/30/2018 1:16 PM [...] SIGNED BY DR. Lloyd Arcos Xuan Block PUBLIC POLICY MEDIATOR, LEAD SHOP OPERATOR XRAY ORDERABLE Hepatitis A/B/C Panel (09/30/2018 6:42 AM CDT) [facility] Method Time Signature HEP BC IGM DELBERT Non-Reacti Non-Reacti 09/30/2018 [facility] [place] ve ve 8:24 AM CDT HEALTH LABORATORY HEP A IGM DELBERT Non-Reacti Non-Reacti 09/30/2018 [facility] L ve ve 8:24 AM CDT HEALTH LABORATORY HEP BS ANTIGEN Non-Reacti Non-Reacti 09/30/2018 [facility] [place] ve ve 8:24 AM CDT HEALTH LABORATORY Hepatitis C Non-Reacti Non-Reacti 09/30/[address] [facility] Antibody ve ve 8:24 AM CDT HEALTH LABORATORY Specimen Anatomical Collection Method Collection Time Receive d Time (Source) Location / / Volume Laterality Blood 09/30/2018 6:42 AM 9 6:59 CDT AM CDT Robby Conrad MD IMMUNOLOGY ORDERABLE Performing Organization Address City/[facility] [facility]/ZIP Code Phon e Number [facility] [address] [place] [address] LABORATORY Lactic Acid (09/30/2018 6:42 AM CDT) athologist Signature LACTIC ACID 1.9 0.7 - 2.1 09/30/[address] [facility] mmol/L 7:03 AM CDT [facility] LABORATORY Specimen Anatomical Collection Method Collection Time Receive d Time (Source) Location / / Volume Laterality Blood 09/30/2018 6:42 AM 9 7:00 CDT AM CDT Robby Conrad MD CHEMISTRY ORDERABLE Performing Organization Address City/[facility]/ZIP Code Phon e Number [facility] [address] [facility] [place] [address] LABORATORY (ABNORMAL) CBC / Diff (09/30/2018 6:42 AM CDT) [facility] Method Time Signature WBC 14.6 (H) 4.3 - 09/30/[address] [facility] 10.8 K/uL 6:59 AM CDT HEALTH LABORATORY RBC 3.90 (L) 4.20 - 09/30/[address] [facility] 5.40 M/uL 6:59 AM CDT HEALTH LABORATORY HEMOGLOBIN 13.6 12.0 - 09/30/[address] [facility] 16.0 6:59 AM CDT HEALTH gm/dL LABORATORY HEMATOCRIT 39.9 36.0 - 09/30/[address] [facility] 48.0 % 6:59 AM CDT HEALTH LABORATORY MCV 102 (H) 80 - 100 09/30/[address] [facility] fl 6:59 AM CDT HEALTH LABORATORY MCH 35 (H) 27 - 33 09/30/[address] [facility] pg 6:59 AM CDT HEALTH LABORATORY MCHC 34 33 - 36 09/30/[address] [facility] gm/dL 6:59 AM CDT HEALTH LABORATORY RDW 13.2 11.5 - 09/30/[address] [facility] 14.5 % 6:59 AM CDT HEALTH LABORATORY PLATELET COUNT 257 150 - 400 09/30/[address] [facility] K/UL 6:59 AM CDT HEALTH LABORATORY MPV 9.7 6.5 - 12 09/30/[address] [facility] 6:59 AM CDT HEALTH LABORATORY PMN % 90.9 % 09/30/[address] [facility] 6:59 AM CDT HEALTH LABORATORY IG% 0.3 <=1.0 % 09/30/[address] [facility] 6:59 AM CDT HEALTH LABORATORY LYMPH % 5.1 % 09/30/[address] [facility] 6:59 AM CDT HEALTH LABORATORY MONO % 3.2 % 09/30/[address] [facility] 6:59 AM CDT HEALTH LABORATORY EOS % 0.3 % 09/30/[address] [facility] 6:59 AM CDT HEALTH LABORATORY BASO % 0.2 % 09/30/[address] [facility] 6:59 AM CDT HEALTH LABORATORY PMN ABSOLUTE 13.28 (H) 1.80 - 09/30/[address] [facility] 7.80 K/uL 6:59 AM CDT HEALTH LABORATORY IG ABSOLUTE 0.05 K/uL 09/30/[address] [facility] 6:59 AM CDT HEALTH LABORATORY LYMPH ABSOLUTE 0.74 (L) 1.00 - 09/30/[address] [facility] 4.00 K/uL 6:59 AM CDT HEALTH LABORATORY MONO ABSOLUTE 0.47 0.00 - 09/30/[address] [facility] 1.00 K/uL 6:59 AM CDT HEALTH LABORATORY EOS ABSOLUTE 0.04 0.00 - 09/30/[address] [facility] 0.45 K/uL 6:59 AM CDT HEALTH LABORATORY BASO ABSOLUTE 0.03 0.00 - 09/30/[address] [facility] 0.20 K/uL 6:59 AM CDT HEALTH LABORATORY NUCL RBC % 0.0 0.0 - 0.0 09/30/[address] [facility] /100 WBC 6:59 AM CDT HEALTH LABORATORY NUCL RBC 0.00 K/uL 09/30/[address] [facility] ABSOLUTE 6:59 AM CDT HEALTH LABORATORY Specimen Anatomical Collection Method Collection Time Receive d Time (Source) Location / / Volume Laterality Blood 09/30/2018 6:42 AM 9 6:56 CDT AM CDT Robby A Matter HEMATOLOGY ORDERABLE Performing Organization Address City/State/ZIP Code Phon e Number [facility] [address] [address] [phone] LABORATORY documented in this encounter Visit Diagnoses [...] syringe 10 mL 0524 (Given - Provider: Gee Talamantes, RN)0807 (Given - Provider: Aaliyah Mistry, [...] Provider: Aaliyah Mistry RN)0912 (Given - Provider: Aaliyah Mistry RN)1017 (Given - Provider: Ciara Booker [...] 15mg. documented in this encounter Care Teams Manufacturing Baker Relationship Specialty Start Date End Date [facility], [facility] PCP - General 09/30/18 [place] [address] [place] [phone] [facility] PCP - Primary Care Clinic 9 [place] [address] [place] [phone] documented as of this encounter
--- OUTSIDE RECORDS SUMMARY | 2022-01-31 04:37 | XMS_ITS | Encounter Summary ---
:1990 Author Care Team Providers Name Role Phone Ervin Schroeder MD Primary Care Provider [phone] Parris Knight (Mother) Patient Designee [phone] Jairo Rodriguez COMMUNITY PRODUCT SPECIALIST Nurse Practitioner [phone] Matthew Rollins MD Transplant Charcoal Unloader [phone] [facility] Team Palliative Care [phone] Taylor Paul RN Palliative Care [phone] Gela Goff [facility] Palliative Care [phone] Zenobia Kirby [facility] Non Categorical Preschool Teacher [phone] Reason for Visit Transition of Care Assessment [...] care for herself during the day. Scheduled COMMUNITY PRODUCT SPECIALIST follow up for next week. Nurse advised [...] Alexandre's 23/11 availab ility of a licensed professional counselor to provide immediate guidance over the phone [...] Education provided. Next Steps: Patient outreach in [facility] 3-4 weeks. [Research resources]. Taylor Paul RN [...] Unknown. Past Encounters 11/27/2021 Taylor Paul RN: [address] [place] [phone], Ph. 11/05/2021 Jairo Rodriguez UPHOLSTERY INSTRUCTOR: [address] [place] [phone], Ph. [phone] History of Present Illness Note: <div>Contact: Nurse performed follow-up visit via {{phone* face to face video}}. Patients' name and date of verified. </div><div>Patient story is presented {{entirely primarily*}} by the {{patient* patient's brother patient's wuyfnqg-ga-tcj patient's caregiver patient's daughter patient's lchhfpwy-jd-rjy patient's friend patient's grandchild patient's patient's sister patient's psmbig-rd-oqr patient's son patient's son-in-law patient's }} . 31 year-old, {{female* male}} with a reported history of alcoholic cirrhosis and acute respiratory failure who ap pears {{alert, oriented and answering questions appropriately* confused and not answering questions appropriately}}. </div><div>
</div><div>Start time: {{ 3:00pm#}} Stop time: {{ 3:20pm#}}</div><div>Clinician Located: {{Clinician Home Address* [place] Office Address Patient?s Home Address}} </div><div>Patient physically located at: {{Patient's Home Address* [place] Location, Name of Facility, City/State SNF Location, Name of Facility, City/State LTC Location, Name of Facility, City/State Other Location, City, State}}</div><div>
</div> Review of Systems None recorded. Physical Exam None recorded.
--- OUTSIDE RECORDS SUMMARY | 2022-01-31 04:37 | XMS_ITS | Clinical Summary ---
:[address] [facility] Address [address] [place] [address] Care Team Providers Name Role Phone Clinic, [facility] Primary Care Provider [facility], [facility] Unavailable [phone] Allergies Active Allergy Reactions Severity Noted Date [...] on patient's age to complete this to [facility] Insurance Payer Benefit Plan / Subscriber ID Effective Dates Phone Addre ss Type Group BLUE CROSS BCBS [facility] [id number] 2018-Present [phone] [address] [address] [place] [address] CariasCatia Patrica Personal/Family Self 1990 A PT 3 (Home) [address] [place] [address] Advance Directives For more information, please contact: [phone] Latest Code Status on File Code Status Date Activated Date Inactivated Comments Full Code 09/30/2018 4:42 AM 10/02/2018 6:07 PM How was code status determined? Patient Care Teams Supervisor Fireworks Assembly Relationship Specialty Start Date End Date [facility] PCP - General 09/30/18 [place] [address] [place] [phone] [facility] PCP - Primary Care Clinic 9 [place] [address] [place] [phone]
[2022-01-31 04:38] LABS: Albumin* 3.4 g/dL (3.3-5.0); Chloride* 108 mmol/L (96-114); Potassium* 3.5 mmol/L (3.6-5.1); Sodium* 138 mmol/L (135-149)
[2022-01-31 04:40] LABS: Creatinine* 0.6 mg/dL (0.5-1.5); Est. Creatinine Clearance* 107.45; Estimated Glomerular Filt Rate 123 ml/min; INR 3.17 (0.91-1.10); Prothrombin Time 32.8 Seconds
[2022-01-31 04:41] LABS: Alanine Aminotransferase* 17 U/L (4-35); Alkaline Phosphatase* 231 U/L (40-150); Aspartate Amino Transferase* 45 U/L (12-35); Bilirubin Total* 10.3 mg/dL (0.1-1.5); Blood Urea Nitrogen* 9 mg/dL (5-24); Calcium* 8.7 mg/dL (8.4-10.6); Carbon Dioxide* 21 mmol/L (20-32); Glucose* 137 mg/dL (60-115); Total Protein* 5.4 g/dL (6.0-8.3)
[2022-01-31 04:43] LABS: Ethanol* < 0.01 % (0.01-0.03)
[2022-01-31 05:02] LABS: PCR FLU A Negative PCR FLU A (Negative); PCR FLU B Negative PCR FLU B (Negative); SARS PCR* Negative SARS-CoV-2 (Negative)
[2022-01-31 05:43] LABS: Appearance Urine Clear (Clear); Bilirubin Urine 3+ (Negative); Blood Urine 1+ (Negative); Color Urine Amber (Yellow); Glucose Urine Negative (Negative); Ketones Urine Trace (Negative); Leukocyte Esterase Urine Negative (Negative); Nitrite Urine Negative (Negative); Protein Urine 1+ (Negative); Urobilinogen Urine 0.2 (0.2-1.0)
[2022-01-31 05:59] LABS: RBC Urine 0-2 (0-2); Squamous Epithelial Cell Urine Moderate (None-Few); WBC Urine 0-2 (0-5)
[2022-01-31 06:00] LABS: Hyaline Casts Urine Few (None-Few)
--- NOTE | 2022-01-31 06:09 | CRLHL7_ITS ---
For Patients: As a result of the Century Cures Act, medical imaging exams and procedure reports are released immediately into your electronic medical record. You may view this report before your referring provider. If you have questions, please contact your health care provider. INDICATION: Abdominal pain. History of Crohn disease. COMPARISON: None. TECHNIQUE: 66 mL Isovue-370 IV contrast. FINDINGS: Chest: Large right simple appearing dependent pleural effusion. Atelectasis of the entire right lower lobe and dependent minor atelectasis in the right middle and upper lobes. Air bronchograms in the atelectatic right lung without filling defect in the airways appreciated. Minor atelectasis at the left base. No pathologic adenopathy. Azygos is enlarged suggesting prominent intravascular volume. Heart size is normal. No pulmonary edema. Borderline pulmonary vascular congestion. - Abdomen and pelvis: A moderately large volume of ascites present throughout the abdomen. Prominent splenomegaly up to 17 cm. Heterogeneous edematous appearing liver. This does not appear enlarged. Normal caliber of the portal vein which is patent. There are however small paraesophageal, perigastric and splenic varices. Prominent left gonadal vein. Kidneys enhance normally. Scattered calcifications in the edematous indistinct pancreas, particularly in the head and uncinate process. No ductal dilatation is appreciated. No discrete mass. Diffuse soft tissue edema through the retroperitoneum, mesentery and soft subcutaneous soft tissues. Large IVC. No dilated small bowel. No acute inflammation of large or small bowel. IUD in the uterus. This looks malpositioned in the lower uterine segment with strands extending into the myometrium and proximal margin potentially extending through cervix (image 136 series 6 and image 142 series 1). An incomplete distention urinary bladder. Age indeterminate appearing anterior compression deformity at L1. Schmorl`s node cavities versus endplate fractures L4 and L5. Bones are diffusely demineralized for age. IMPRESSION: 1. Appearance of prominent portal hypertension with splenomegaly and varices and ascites as well as diffuse soft tissue edema. Overall prominent third-spacing and inter vascular volume. 2. Large right effusion and complete pass atelectasis right lower lobe. 3. No active inflammatory bowel disease. No significant finding in large or small bowel. 4. Appearance of least chronic pancreatitis changes in the body head and uncinate process. Laboratory correlation for acute pancreatitis which is difficult to exclude in the setting of prominent soft tissue edema ascites. 5. Malpositioned IUD in the lower uterine segment and potentially cervix. 6. Age-indeterminate L1 compression deformity. Schmorl`s nodes versus central endplate compression deformities superior L4 and L5. Please note that all CT scans at this facility use dose modulation, iterative reconstruction, and/or weight-based dosing when appropriate to reduce radiation dose to as low as reasonably achievable. Dictated by Natanael Levine MD @ 01/31/2022 7:53:18 AM (Electronically Signed)
[2022-01-31] MEDS: HYDROmorphone 0.5 mg/0.5 ml inj IVP (06:51)
[2022-01-31 08:26] LABS: Amylase* 64 U/L (18-89); Lipase* 28 U/L (23-300)
== END 2022-01-31 10:00 | disposition home or self-care (01) ==
PROVIDERS: Emergency Provider Family Medicine
DX: R18.8 Other ascites (principal); K74.69 Other cirrhosis of liver
CPT/HCPCS: 36415; 71045; 71260; 74177; 80053; 81001; 82077; 82150; 83605; 83690; 85025; 85610; 87631; 96374; 96375; 99285; J1170; J2405; Q9967

== ENCOUNTER 2022-02-04 22:13 | Emergency (ER) | payer BC, SELFPAY ==
[2022-02-04 22:30] VITALS: BP 127/71; PULSE 97; RESP 18; TEMP 36.8; O2SAT 98; BMI 23.8
--- OUTSIDE RECORDS SUMMARY | 2022-02-04 23:06 | XMS_ITS | Encounter Summary ---
:1990 Author Organization [facility] Address [address] [place] [address] Care Team Providers Name Role Phone Ana Red P.A.-C. Primary Care Provider [phone] Reason for Visit Reason Comments Phone Contact RN and MD follow up Encounter Details Date Type Department Care Team Description 02/04/2022 Clinical Department of [facility] Phone Contact (RN Communication Gastroenterology in Y, M.B.B.S., and MD follow up) [facility] [address] [facility] [address] [place] [phone] [place] [phone] Social History Tobacco Use Types Packs/Day Years [...] do you attend hindu or Never 2021 lutheran services? Do you belong to any clubs or No 07/17/2021 organizations such as hindu groups, unions, fraRen[employer] or athletic groups, or school groups? 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 Jerome moved up to [place]. When I spoke with patient she stated Dr. Jerome is great but she'd rather see a [place] provider. She says [facility] keeps cancelling appts without telling her. Wasn't sure if we were able to schedule with clinic MD and schedule phone screen virtually? Please advise and I will call pt back to confirm appts. Thank you! documented in this encounter Plan of Treatment Upcoming Encounters Date Type Specialty Care Team Description Hospital Radiology [facility], Matthew 2 Encounter Tyrell Rodriguez M.D. [address] [place] [phone] Hospital Gastroenterology and [facility], Matthew 2 Encounter Hepatology Tyrell Rodriguez M.D. [address] [place] [phone] Surgery Gastroenterology and [facility], [place] ESOPHAG OGASTRODUODENOSCOPY 2 Hepatology Tyrell Rodriguez M.D. [address] [place] [phone] Telemedicine Transplant 2 Lab Laboratory Medicine Olinda Frazier M.D., Ph.D. [address] [place] [phone] Lab Laboratory Medicine Olinda Frazier M.D., Ph.D. [address] [place] [phone] Office Visit Transplant Olinda [place] M.D., Ph.D. [address] [place] [phone] Office Visit Pending Sale To [facility], 2 Solitario Perez P.A.-C. [address] [place] [phone] Appointment Radiology Matthew Jerome 2 YJoshuaB.BLilian Bedolla [address] [place] [phone] Appointment Gastroenterology and [place], 2 Hepatology Yue Burciaga M.D. [address] [place] [phone] Office Visit Gastroenterology and Matthew Jerome 2 Hepatology Joshua RodriguezB.BLilian Bedolla [address] [place] [phone] Appointment Radiology Matthew Jerome 2 YJoshuaB.B.Lilian [place] [address] [place] [phone] Scheduled Procedures Name Priority Associated Diagnoses Date/Time ESOPHAGOGASTRODUODENOSCOPY Cirrhosis Alc oholic (HCC) 02/10/2022 8:45 AM CDT Hypertension Portal (HCC) documented as of this encounter Visit Diagnoses Not on filedocumented in this encounter Additional Health Concerns Assessment Noted Time PHQ-9 Depression Total Score: 10/06/2021 5:00 PM CD T documented as of this encounter Care Teams Drill Press Operator Numerical Control Relationship Specialty Start Date End Date Ana Red P.A.-C. PCP - General Internal Medicine 12/01/[address] [place] [phone] [facility] [place] [facility] 08/25/21 Ervin Schroeder MD Referring Provider Family Medicine 03/24/[address] [place] [phone] documented as of this encounter
--- OUTSIDE RECORDS SUMMARY | 2022-02-04 23:06 | XMS_ITS | Encounter Summary ---
:1990 Author Organization [facility] Address [address] [place] [id number] Care Team Providers Name Role Phone Ana Red P.A.-C. Primary Care Provider [phone] Reason for Visit Reason Comments Altered Mental Status Auth/Cert Specialty Diagnoses / Procedures Referred By Contact Refer red To Contact Diagnoses Pain Flank Procedures OBS Referral ID Status Reason Start Date Expiration Date Visits Requ ested Visits Authorized [id number] 1 1 Encounter Details Date Type Department Care Team Description 02/01/2022 - Emergency [facility] Paty Goldberg P.A.-C. [address] [place] [phone] Pain Flank (Primary Dx); 02/03/2022 [facility] David M, M.D. [address] [place] [phone] Ascites Chronic; [facility], Vj Rodrigez M.B., Ch.B. [address] [place] [phone] Thrombocytopenia (HCC); [facility], Cirrhosi s Alcoholic (HCC); Third Floor Hypertension Portal (HCC); [address] [facility] [place] [phone] Social History Tobacco Use Types Packs/Day Years [...] do you attend jew or Never 2021 pentecostal services? 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 - 02/03/2022 5:55 AM CDT DISCHARGE SUMMARY BRIEF OVERVIEW Hospital: [facility] Discharge Provider: Vj Rodrigez M.B. Primary Team: [facility] Medicine 3 ([facility]) Primary Care Providers: Ana Red P.A.-C. (General) [address] [place] [phone] Primary Care Provider Primary Care Provider Other Providers: Matthew Jerome MD Admission Date: 02/01/2022 Discharge Date: 02/03/2022 PRINCIPAL DIAGNOSIS Hepatic Failure Unspecified Without Coma (HCC) SECONDARY DIAGNOSES Principal Problem: Hepatic Failure Unspecified Without Coma (HCC) Active Problems: Anemia Macrocytic Anxiety Disorder Unspecified Alcoholic Cirrhosis Of Liver With Ascites (HCC) Cannabis Mild Use Disorder (Abuse) Uncomplicated Pancreatitis Chronic (HCC) Moderate Or Severe Use Disorder (Dependence) Alcohol Remission (HCC) Thrombocytopenia (HCC) Deficiency Coagulation Acquired (HCC) Hypertension Portal (HCC) Deficiency Vitamin A Chronic Pain Syndrome Esophageal Varices Without Bleeding (HCC) Pain Low Back Vertebrogenic Attention Deficit Hyperactive Disorder Chronic Kidney Disease (CKD), Stage 3b Glomerular Filtration Rate (GFR) 30 To 44 (HCC) Deficiency Vitamin D Effusion Pleural Atelectasis Splenomegaly Congestive Chronic Resolved Problems: Hepatic Encephalopathy Without Coma (HCC) Failure Renal Acute (Acute Kidney Injury) (HCC) DISCHARGE DISPOSITION Home or Self Care [1] ACTIVE ISSUES REQUIRING FOLLOW UP Decompensated alcoholic cirrhosis: appointments listed below OUTPATIENT FOLLOW UP Scheduled Appointments 02/05/2022 8:00 AM Ana Red P.A.-C. [facility] 02/05/2022 3:15 PM [facility] [place] [place] 02 01 Radiology 02/10/2022 3:00 PM TXP PSYCHIATRY 01 [facility] Transplant 02/12/2022 9:20 AM LAB BLOOD [facility] Laboratory Medicine 02/12/2022 9:30 AM LAB URINE CONTAINER [facility] Laboratory Medicine 02/12/2022 11:00 AM TXP COUNSELOR 01 [facility] Transplant 02/18/2022 3:15 PM [facility] [place] [place] 02 Radiology 03/02/2022 10:00 AM [facility] Gastroenterology and Hepatology 03/04/2022 9:30 AM Matthew Jerome M.B.B.S., M.D. Gastroenterology and Hepatology 03/05/2022 3:15 PM [place] [id number] Radiology For appointment details refer to your Patient Appointment Guide. TEST RESULTS PENDING AT DISCHARGE Pending Labs Order Current Status Bacteria / Raudel Culture, Blood # 2 Preliminary result Bacteria / Raudel Culture, Blood #1 Preliminary result DETAILS OF HOSPITAL STAY REASON FOR ADMISSION Pain Flank HOSPITAL COURSE Ms. Carias is a 31 year old woman with past medical history pertinent for alcoholic cirrhosis decompensated by refractory ascites needing paracentesis regularly, hepatic encephalopathy, and esophageal varices status post banding x6 01/28/2022, chronic pancreatitis, GERD, chronic pain, recent hospitalization 01/20-01/29 for MOSHE who is presenting with chronic bilateral flank/back pain. She was hospitalized with the Medicine 3 service 01/20-01/29/2022 when she presented with right flank/back pain and MOSHE. At that time, SBP was ruled out, diuretics held, albumin given and paracentesis was done after which her MOSHE improved (thought to be prerenal in the setting of high dose of diuresis with probable contribution of compression from her large ascites). 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 Her MOSHE improved and diuretics were started at half dose at discharge. During that stay, she needed 3 units of red blood cell transfusion. Her anemia was thought to be multifactorial related to splenic sequestration, some nutritional deficiency[copper] and anemia of inflammation [corrected reticulocyte index was inappropriately normal]. The patient re-presented to the ED on 02/01 due to persistent flank pain. She was discharged with lidocaine, Voltaren gel, and Flexeril 5 mg b.i.d.. However, the patient was unable to get her Flexeril after discharge. Her insurance company covers Flexeril as prescribed her PCP, and she was unable to reach her PCP to fill this prescription. She presented to the ED due to her persistent pain unrelieved by her discharge medications. In the ED, she was afebrile and hemodynamically stable. Lab workup was unremarkable aside from her baseline hemoglobin of 7.9 baseline thrombocytopenia of 54. CT C/A/P angiogram demonstrated cirrhotic liver portal HTN, splenomegaly, moderate R pleural effusion, large volume ascites, diffuse anasarca, multilevel vertebral compressions. Due to the absence of imaging findings and tenderness on palpation, the patient's flank pain and back pain are thought to be secondary to a musculoskeletal cause. She was re-initiated on Flexeril 5 mg b.i.d. as well as lidocaine patch, Voltaren gel, and heat as needed. She was also reinitiated on her home dose of Lasix and spironolactone to help facilitate diuresis. She received a paracentesis on 02/02, with removal of 4.6 L of fluid, which improved her shortness of breath. 25 g IV albumin was givento prevent reaccumulation. The patient was discharged to home in a stable condition on 02/03 with outpatient follow-up with herliver transplant team on 02/12 and her PCP on 02/05 CONSULTS ORDERED DURING THIS ADMISSION IP CONSULT TO CARE MANAGEMENT Procedures Performed : paracentesis Pertinent Diagnostic Results: Microbiology: Paracentesis: Serous fluid with 88 total nucleated cells CONDITION AT DISCHARGE stable Discharge instructions were provided to the patient and caregiver(s). documented in this encounter Discharge Instructions Discharge Hilda Gayle - 02/02/2022 7:24 AM CDT You were discharged from the [facility] Medicine 3 ([facility]) Service. Please identify this service name if you call with questions after hospitalization. documented in this encounter Medications at Time of Discharge Medication Sig Dispensed Refills Start Date End Date furosemide (LASIX) 20 mg Take 2 tablets (40 180 tablet 3 07/202102/02/2023 tabletIndications: mg total) by mouth Ascites Chronic, daily. Return to Thrombocytopenia (HCC), full 40mg dose on Cirrhosis Alcoholic Friday 02/02. (HCC), Hypertension Portal (HCC), Abnormal Liver Function Test spironolactone Take 2 tablets (100 60 tablet 2 02/02/2022 (ALDACTONE) 50 mg tablet mg total) by mouth daily. Return to full 100mg dose on Friday 02/02. cholecalciferol 10 mcg Take 1 tablet (400 60 tablet 3 01/15 (400 Unit) tablet Units total) by mouth daily. ciprofloxacin (CIPRO) Take 1 tablet (500 60 tablet 2 2021 500 mg tablet mg total) by mouth every morning before breakfast. Take this medication 2 hours before or after you take your vitamins, in particular the magnesium and the zinc. cyclobenzaprine Take 1 tablet (5 mg 5 tablet 0 01/30/2022 (FLEXERIL) 5 mg tablet total) by mouth daily as needed for muscle spasms. cyclobenzaprine Take 1 tablet (5 mg 30 tablet 0 02/02/2022 (FLEXERIL) 5 mg tablet total) by mouth at bedtime as needed for muscle spasms. diclofenac sodium Apply 2 g topically 20 g 0 2 (VOLTAREN) 1 % gel 4 (four) times a day. Apply to painful area on skin. folic acid 1 mg tablet TAKE 1 TABLET BY 90 tablet 3 022 MOUTH DAILY lactulose (CHRONULAC) 20 Take 15 mL (10 [...] (50 mg zinc) capsule daily with breakfast. documented as of this encounter Progress Notes Evon Rodriguez Pharm.D., R.Ph. - 02/02/2022 7:22 AM CDT Pharmacist Progress Note Reason for admission: severe bilateral flank pain and increasing ascites PMH: alcoholic cirrhosis (undergoing transplant evaluation), GERD, chronic pancreatitis, rhinitis, HTN, anxiety, back pain HPI: recent hospitalization 01/20-01/29 for MOSHE, acute on chronic anemia of unclear cause and severe pain, esophageal varices banded 01/26 OBJECTIVE Home medications: per RN, recent discharge 01/29 VTE Prophylaxis: SQH (plts 54) Renal function: Estimated Creatinine Clearance: 145.2 mL/min (A) (by C-G formula based on SCr of 0.57 mg/dL (L)). ASSESSMENT / PLAN Chronic back/flank pain: Imaging w/o acute cause. Tylenol 500 mg q6h PRN, triple cream BID, diclofenac gel QID, lidocaine patch, cyclobenzaprine 5 mg daily PRN. Decompensated cirrhosis: Ascites: planning paracentesis today. Diuretics increased back to full dose of furosemide 40 mg daily and spironolactone 100 mg daily. HE: Continue lactulose and rifaximin. SBP ppx: Continue ciprofloxacin 500 mg daily. Varices: s/p banding 01/26. Not on a beta tommy due to hypotension. FEN: Continue zinc, vitamin A, vitamin D. Vitamin E level WNL on 09/30. Consider re-checking vitamin A level - may be able to discontinue supplement. I will add a multivitamin per CPA. Evon Rodriguez Pharm.D., R.Ph. [phone] Sara Gracia M.D. - 02/02/2022 6:04 AM CDT T Medicine 3 ([facility]) PROGRESS NOTE SUBJECTIVE Ms. Carias is a 31 year old woman with past medical history pertinent for alcoholic cirrhosis decompensated by refractory ascites needing paracentesis regularly, hepatic encephalopathy, and esophageal varices status post banding x6 01/28/2022, chronic pancreatitis, GERD, chronic pain, recent hospitalization 01/20-01/29 for MOSHE who is presenting with chronic bilateral flank/back pain. Overnight, she had worsening flank pain and was given oxycodone 5 mg PRN once. Discussion was had with the patient that since her pain is chronic, she cannot continue to get opiates during this hospitalization as she will not get them outpatient. The patient expressed understanding of this, but wanteda 1 time dose for severe pain overnight. She was also given 1 dose of p.r.n. Zofran for nausea. She says that her pain is better this morning after a 1 time dose of oxycodone overnight. She says that she would like to try Flexeril b.i.d. if possible. She says that her shortness of breath is better this morning, and is improved if she elevates the head of the bed. She is feeling slightly nauseous thismorning, but better than last night. She denies abdominal pain. She is understandably anxious following her paracentesis in anticipation of increased pain as well as fluid shift, and would like monitoring in the hospital for the next several hours. I have reviewed the current medication list. OBJECTIVE VITAL SIGNS Temperature: [36.7 ??C-36.9 ??C] 36.8 ??C Heart Rate: [92-103] 95 Resp Rate: [15-26] 16 Blood Pressure: (96-130)/(56-74) 119/63 SpO2: [89 %-97 %] 96 % Flow Rate (L/min): [0 L/min-2 L/min] 0 L/min Height: [157.5 cm] 157.5 cm Weight: [64.3 kg] 64.3 kg BSA (Calculated - sq m): [1.68 sq meters] 1.68 sq meters BMI (Calculated): [25.9 kg/m??] 25.9 kg/m?? Pulse Rate: [89-103] 91 PHYSICAL EXAM General: Chronically ill-appearing young woman, resting in bed comfortably Skin: Jaundice, no apparent rashes Eyes: Scleral icterus, pupils equal and reactive to light, extraocular movements intact ENT: Fair dentition, moist mucous membranes Lungs: Normal work of breathing, inspiratory crackles in the lower lung zarco bilaterally, no wheezes or rhonchi Heart: Regular rate and rhythm, systolic ejection murmur heard at left sternal border Abdomen: Distended, protruding umbilicus, large volume ascites. Shifting dullness to percussion. Nontender to palpation aside from bilateral flanks Mental: Appropriate mentation, alert and oriented x4, appropriate affect Musculoskeletal: Disproportionate tenderness to palpation in bilateral flanks and midback, even to light touch. No areas of erythema or bruising. No spinal tenderness DIAGNOSTICS I have personally reviewed the laboratory data and imaging since admission, and in/outs for past 72 hours. ASSESSMENT / PLAN Ms. Carias is hospitalized on [facility] 3 ([facility]) for evaluation and management of Hepatic Failure Unspecified Without Coma (HCC). #1 Pain Flank #Chronic back pain Ms. Carias back pain is likely an ongoing exacerbation of her chronic back pain, musculoskeletal in etiology. She does not display any alarm features of back pain, and there are no concerning findings on CT. She has old compression fractures of her lumbar spine, however this is not where her pain is located. Additional imaging such as MRI would be unlikely to add value. Her increased ascites may be contributing to worsened muscular pain. Almost certainly, psychological distress is contributing to theseverity of her pain. We will continue multimodal management try to avoid opioids as much as possible. - Tylenol 500mg q6h - Triple cream BID, Diclofenac gel QID, Lidocaine patch - Flexeril 5 mg increased to b.i.d. p.r.n., which is her home dose - Ice to reduce inflammation, heat to relax muscles - TENS education and training - Consider massage therapy consult - Consider pain management consult - Avoiding opioids if at possible, patient will not be able to continue to get opioids an outpatientbasis due to liver transplant evaluation -plan to discharge today if patient is feeling well following paracentesis #Decompensated alcoholic cirrhosis #Portal hypertension #Non-bleeding esophageal varices #Ascites #Thrombocytopenia #Elevated INR #History of hepatic encephalopathy #History of alcohol use disorder Patient received a paracentesis today with removal of 4.6 L fluid. She reports feeling better following this. She is scheduled to see liver transplant on outpatient basis on 02/12, and is scheduled foroutpatient paracentesis on 02/05 and 02/10. Placing something such as a peritoneal drain during this h ospitalization likely does not have any utility since the patient will be being evaluated for a liver transplant and is not to the point of palliative drainage. She expressed understanding of this, andwill discuss this with the liver transplant team on 02/12. - replace with albumin 25 g 25% following paracentesis - f/u peritoneal fluid studies - continue home diuretics: Lasix 40 mg, spironolactone 100 mg - Ciprofloxacin 500mg daily for SBP prophylaxis - Lactulose 20g QID, Rifaximin 550mg BID - Protonix 40mg daily - Magnesium oxide 400mg, folic acid 1mg, thiamine 100mg daily, vit D 400IU, Vit A 3000mcg 3x weekly,zinc 50mg - Low sodium diet #Chronic mixed anemia Workup at previous hospitalization demonstrated evidence hemolysis, iron overload from multiple transfusions, and likely anemia of chronic disease, possible slow GI losses, and splenic sequestration contributing to overall anemia. Hematology was curb sided. - Daily CBC - Transfuse if Hgb <6 or patient is symptomatic - Patient has been consented within past year for blood products #Anxiety #Insomnia - Home trazodone 50mg at bedtime Current Activity/Mobility: BMAT Level 4 (Able to stand and walk; needs staff assist if fall risk factors identified) Fall Injury Prevention: I have discussed My Plan for Safe Activity with the patient. Diet: low sodium diet Tubes/lines: Lines, Drains, and Airways Peripheral IV Duration Peripheral IV 02/01/22 20 G Right Antecubital 23h Wound Duration Puncture 01/27/22 Abdomen Left;Lateral Paracentesis 6d 0h Puncture 01/13/22 Abdomen Right;Lower;Quadrant paracentesis site 19d 19h Puncture 01/21/22 Abdomen Right;Upper;Quadrant 12d 0h Puncture 02/02/22 Abdomen Right;Lower;Quadrant;Lateral Paracentesis Site 0d 0h VTE prophylaxis: heparin Disposition: Home with expected discharge date Stable to discharge criteria (not met): Pain control Plan discussed with [facility] Medicine 3 ([facility]) Sap Hana Architect, JEAN CARLOS [facility] who was present during judd portions of the evaluation today. Please page the [facility] Medicine 3 ([facility]) service pager at [phone] with any questions. documented in this encounter H&P Notes Vj Rodrigez M.B., Ch.B. - 02/02/2022 5:17 PM CDT I have personally seen and examined Catia Carias with our medicine team, and I agree with the history, exam, and plan as documented in yesterday's and today's notes. Principal Problem: Hepatic Failure Unspecified Without Coma (HCC) Active Problems: Anemia Macrocytic Anxiety Disorder Unspecified Alcoholic Cirrhosis Of Liver With Ascites (HCC) Cannabis Mild Use Disorder (Abuse) Uncomplicated Pancreatitis Chronic (HCC) Moderate Or Severe Use Disorder (Dependence) Alcohol Remission (HCC) Thrombocytopenia (HCC) Deficiency Coagulation Acquired (HCC) Hypertension Portal (HCC) Deficiency Vitamin A Chronic Pain Syndrome Esophageal Varices Without Bleeding (HCC) Pain Low Back Vertebrogenic Attention Deficit Hyperactive Disorder Chronic Kidney Disease (CKD), Stage 3b Glomerular Filtration Rate (GFR) 30 To 44 (HCC) Deficiency Vitamin D Effusion Pleural Atelectasis Splenomegaly Congestive Chronic Resolved Problems: Hepatic Encephalopathy Without Coma (HCC) Failure Renal Acute (Acute Kidney Injury) (HCC) Kishore Sotelo., Ch.B., [facility], F[facility], FACP Sap Hana Architect Hospitalist Yue Silver M.D. - 02/01/2022 5:13 PM CDT [facility] Medicine 3 ([facility]) Admission Note SUBJECTIVE CHIEF COMPLAINT Ms. Carias is a 31-year-old female with a medical history of chronic MSK back pain, alcoholic cirrhosis complicated by refractory ascites, thrombocytopenia, coagulopathy, chronic anemia, and hepatic encephalopathy, who was readmitted with severe bilateral flank pain and increasing ascites. HISTORY OF PRESENT ILLNESS Ms. Catia Carias is a 31 y.o. female who presents with severe back pain, increased ascites. Shewas discharged on 01/29/2022 following a 9 day hospitalization for acute renal failure secondary to prerenal MOSHE. Her stay was complicated by hypotension, acute on chronic anemia requiring 3 units PRBCs, without clear cause of Hgb drop, and severe pain. She had EGD x2 because the first was obscured byfood remnants in the stomach, and the second EGD on 01/26 revealed large non-bleeding esophageal varices which were banded. She also had paracentesis x2, negative for SBP. On the last 2 days of her hospitalization, she developed left flank swelling and tenderness following the second paracentesis. CT abd/pelvis did not show evidence of hemorrhage and Hgb was stable. The swelling was thought to be extravasation of ascites, and it decreased after reinitiation of spironolactone and lasix at half doses (50mg and 20mg, respectively). Her flank pain was managed with lidocaine, diclofenac gel, heat, and flexeril 5mg BID, which she wasdischarged on. She can not take long-term opioid therapy as a part of her liver transplant requirements; previous pain management therapies became unavailable to her as well, including medical marijuana and gabapentin. Unfortunately, the patient was unable to obtain her Flexeril after discharge. Her insurance company covers Flexeril when it is prescribed by her PCP, and she attempted to fill the prescription too late to reach her PCP. Thus, over the weekend, she presented to the emergency departmenton Wednesday, and then again today, for uncontrolled b/l flank pain. Workup at outside ED was negative, including CT angio. After discharge she was able to continue taking her spironolactone 50 mg, Lasix 20 mg, rifaximin, lactulose 20 g q.i.d.. She had 6 bowel movements yesterday and 2 today. Her boyfriend Anthony did relay that this morning when she woke up she was quite confused. She asked him what he was doing there and told him he was scary. She also said she was going to [facility] to meet her doctor. She is not confused at present and they both state that she is back at her baseline mentation. In the ED, she was afebrile, P92-103, BP 1102-120s/60s, RR 18, SpO2 90-95%. Weight 64.3kg, from 64.0kg on discharge 4 days ago. Labs notable for baseline macrocytic anemia hemoglobin 7.9, thrombocytopenia plts 54, ammonia 68, total bilirubin 10.7, direct bilirubin 4.0, AST 62, ALT 24, alk phos 297, low total protein 5.0, normal albumin 4.1. Lactate 1.6, Cr 0.57 (baseline). CXR notable for large abdominal ascites places mass effect upon the diaphragms. Increased moderate right pleural effusion and moderate lower right lung atelectasis versus consolidation. Mild left lung atelectasis. This is largely new since 01/09/2022. CT C/A/P angiogram demonstrated cirrhotic liver portal HTN, splenomegaly, mode rate R pleural effusion, large volume ascites, diffuse anasarca, multilevel vertebral compressions. Blood and urine cultures were obtained. Midstream urine was positive on Gram stain for Gram-positive cocci. At present, she describes her back pain as starting in the mid back extending to the bilateral flanks, being extremely tender. She feels a deep ache that goes down to her tailbone, and occasionally feels cramping down into the leg. The pain is at its lowest when she is lying flat, and increases when she sits up or stands. Boyfriend says that she has been able to ambulate with a walker, though she interjects that it is very painful to be up and moving. This pain has worsened over the past 7 weeks, since the 1st incident where she an extremely painful back spasm while in the shower. Until recently, Flexeril was mostly adequate to control the pain. She denies abdominal pain, fevers, chills, dysuria, hematuria, nausea, vomiting, bloody stools or black stools. She denies alcohol or recreational drug use. I have reviewed and updated the following: Past Medical History, Family History, Social History, andAllergies. Active Home Medications Medication Sig Taking cholecalciferol 10 mcg (400 Unit) tablet Take 1 tablet (400 Units total) by mouth daily. Patient not taking: Reported on 01/30/2022 ciprofloxacin (CIPRO) 500 mg tablet Take 1 tablet (500 mg total) by mouth every morning before breakfast. Take this medication 2 hours before or after you take your vitamins, in particular the magnesium and the zinc. cyclobenzaprine (FLEXERIL) 5 mg tablet Take 1 tablet (5 mg total) by mouth daily as needed for muscle spasms. diclofenac sodium (VOLTAREN) 1 % gel Apply 2 g topically 4 (four) times a day. Apply to painful areaon skin. folic acid 1 mg tablet TAKE 1 TABLET BY MOUTH DAILY furosemide (LASIX) 20 mg tablet Take 1 tablet (20 mg total) by mouth daily. Return to full 40mg doseon Friday 02/02. lactulose (CHRONULAC) 20 gram/30 mL solution Take 15 mL (10 g total) by mouth 4 (four) times a day. levonorgestreL (MIRENA) 20 mcg/24 hours (7 yrs) 52 mg IUD 1 each by intrauterine route continuously.Placed in 2014 lidocaine (LIDODERM) 5 % Place 1 patch on the skin daily. Apply to painful area on back. magnesium oxide (MAG-OX) 400 mg (241.3 mg magnesium) tablet Take 1 tablet (400 mg total) by mouth 2 (two) times a day before breakfast and dinner. pantoprazole (PROTONIX) 40 mg EC tablet Take 1 tablet (40 mg total) by mouth every morning before breakfast. rifAXIMin (XIFAXAN) 550 mg tablet Take 1 tablet (550 mg total) by mouth 2 (two) times a day. spironolactone (ALDACTONE) 50 mg tablet Take 1 tablet (50 mg total) by mouth daily. Return to full 100mg dose on Friday 02/02. thiamine (VITAMIN B1) 100 mg tablet Take 100 mg by mouth daily. traZODone (DESYREL) 50 mg tablet Take 1 tablet (50 mg total) by mouth at bedtime. vitamin A 3,000 mcg (10,000 Unit) capsule Take 1 capsule (3,000 mcg total) by mouth 3 (three) times a week for 50 doses. Wednesday, Wednesday, Wednesday zinc sulfate (ZINCATE) 220 (50 mg zinc) capsule Take 220 mg by mouth daily with breakfast. REVIEW OF SYSTEMS Pertinent items are noted in HPI; all other review of systems was negative. OBJECTIVE VITAL SIGNS Temperature: [36.9 ??C-37.1 ??C] 36.9 ??C Heart Rate: [92-103] 95 Resp Rate: [15-26] 18 Blood Pressure: (96-130)/(56-74) 123/66 SpO2: [89 %-95 %] 92 % Flow Rate (L/min): [2 L/min] 2 L/min Height: [157.5 cm] 157.5 cm Weight: [64.3 kg] 64.3 kg BSA (Calculated - sq m): [1.68 sq meters] 1.68 sq meters BMI (Calculated): [25.9 kg/m??] 25.9 kg/m?? Pulse Rate: [92-103] 92 PHYSICAL EXAM General: Ill-appearing young woman, resting in and flushing. HEENT: scleral icterus. Fair dentition, moist mucus membranes Lymph: no cervical lymphadenopathy. Card: holosystolic murmur loudest at L sternal border, but audible throughout precordium. Unchanged from last hospitalization. Regular rate and rhythm. Pulm: normal work of breathing on room air, no dyspnea duing conversation. Inspiratory crackles in lower and middle lung zarco bilaterally. No wheezes or rhonchi. Abd: distended, protruding umbilicus, ++ascites. Shifting dulllness to percussion. Soft and nontender, except at lower flanks. Active bowel sounds. Left-sided flank swelling significantly improved. MSK: disproportionate tenderness to light touch on mid and low back. No palpable muscle spasm. No spinal tenderness to palpation. No areas of fluctuance or erythema. Ext: 2+ radial and DP pulses. Extremities warm, well perfused. Mild pitting edema at the ankles. DIAGNOSTICS I have reviewed the labs and diagnostics from admission ASSESSMENT / PLAN Ms. Carias is a 31yo F with chronic back pain and alcoholic cirrhosis complicated by refractory ascites, who is hospitalized on [place] [id number] ([facility]) for evaluation and management of Pain Flank. #1 Pain Flank #Chronic back pain Ms. Carias back pain is likely an ongoing exacerbation of her chronic back pain, musculoskeletal in etiology. She does not display any alarm features of back pain, and there are no concerning findings on CT. She has old compression fractures of her lumbar spine, however this is not where her pain is located. Additional imaging such as MRI would be unlikely to add value. Her increased ascites may be contributing to worsened muscular pain. Almost certainly, psychological distress is contributing to theseverity of her pain. We will continue multimodal management try to avoid opioids as much as possible. - Tylenol 500mg q6h - Adding triple cream - Diclofenac gel QID, Lidocaine patch - Flexeril 5mg daily PRN. Can increase to BID if needed - Ice to reduce inflammation, heat to relax muscles - TENS education and training tomorrow - Consider massage therapy consult - Consider pain management consult - Patient was previously on gabapentin, but discontinued as part of liver transplant substance requirements. Reintroduce? - Avoiding opioids if at all possible. Consider 2.5-5mg dose PRN #Decompensated alcoholic cirrhosis #Portal hypertension #Non-bleeding esophageal varices #Ascites #Thrombocytopenia #Elevated INR #History of hepatic encephalopathy #History of alcohol use disorder Paracentesis with peritoneal fluid analysis tomorrow. Titrate lactulose to 2-3 bowel movements minimal per day. Monitor for signs of hepatic encephalopathy. - BMP, CBC, PT/INR - given 10 mg IV dose of Lasix. Will additional doses based on clinical status (dyspnea, effusions) - restart full dose of diuretics: Lasix 40 mg, spironolactone 100 mg - Ciprofloxacin 500mg daily for SBP prophylaxis - Lactulose 20g QID, Rifaximin 550mg BID - Protonix 40mg daily - Magnesium oxide 400mg, folic acid 1mg, thiamine 100mg daily, vit D 400IU, Vit A 3000mcg 3x weekly,zinc 50mg - Low sodium diet #Chronic mixed anemia Workup at previous hospitalization demonstrated evidence hemolysis, iron overload from multiple transfusions, and likely anemia of chronic disease, possible slow GI losses, and splenic sequestration contributing to overall anemia. Hematology was curb sided. - Daily CBC - Transfuse if Hgb <6 or patient is symptomatic - Patient has been consented within past year for blood products #Anxiety #Insomnia - Home trazodone 50mg at bedtime Baseline Mobility: BMAT Level 4 (Able to stand and walk), requires walker Diet: low sodium diet Tubes/lines: PIV VTE prophylaxis: heparin Code status: Prior Disposition: Uncertain Rhea Silver MD Internal Medicine PGY-1 Darrick Hernandez M.B.B.S. - 02/01/2022 5:13 PM CDT Medicine 3 Admission note I saw the patient with Dr. Sivler and I agree with history, physical exam, and assessment and plan in her excellent note dated 02/01/2022 HISTORY OF PRESENT ILLNESS Catia Carias is a 31 year old woman with past medical history pertinent for alcoholic cirrhosisdecompensated by refractory ascites needing paracentesis regularly, hepatic encephalopathy, and esophageal varices status post banding x6 01/28/2022, chronic pancreatitis, GERD, chronic pain, recent hospitalization 01/20-01/29 for MOSHE who is presenting with chronic bilateral flank/back pain She was hospitalized with the Medicine 3 service 01/20-01/29/2022 when she presented with right flank/back pain and MOSHE. At that time, SBP was ruled out, diuretics held, albumin given and paracentesis was done after which her MOSHE improved (thought to be prerenal in the setting of high dose of diuresis with probable contribution of compression from her large ascites). 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 Her MOSHE improved and diuretics were started at half dose at discharge. During that stay, she needed 3 units of red blood cell transfusion. Her anemia was thought to be multifactorial related to splenic sequestration, some nutritional deficiency[copper] and anemia of inflammation [corrected reticulocyte index was inappropriately normal]. On my conversation with her, she is presenting with this bilateral pain at the sides of her back that started 7 weeks ago. It sounded like this responded initially well to Flexeril. Unfortunately, she was not able to get her Flexeril after discharge from our service as her insurance will not cover it unless prescribed by her PCP [she only checked on Wednesday and her PCP had already left]. The pain is increased with breathing and movement. It sounds like she has been having some shortness of breath today. Her abdomen has become pretty distended as well. Denies abdominal pain. She was not pretty sure if she had confusion. She tells me she has not been able to sleep much at night. She was still taking Lasix 20 mg daily and spironolactone 50 mg daily, which I have her home doses she was discharged on [although we were contacted by her local ED yesterday where she presented and advised increasing her diuretics back to Lasix 40 and spironolactone 100 given some increase in pleural effusion on imaging].She was hoping to get MRI for evaluation she was hoping to stay in the hospital until her liver transplant In the ED, her vital signs were stable although heart rate in the 90s to low 100s and respiratory rate 18-21 for the most part. VBG without hypercarbia, creatinine at baseline, no hypoglycemia, other electrolytes acceptable, hemoglobin stable at 7.9 from previously, platelet count 54 with no leukocytos is, liver enzymes also stable. Lactate was normal. Blood culture was obtained. Urine Gram stain was positive for Gram-positive cocci although urinalysis is still pending. ECG showed normal sinus rhythmwith rate of 91 and QTC of 489 and no significant changes worrisome for ischemia. CTA of the chest was negative for PE and shows unchanged moderate size right pleural effusion and atelectasis. CT of the abdomen and pelvis shows unchanged sequela of cirrhosis and portal hypertension with large volume ascites and anasarca. There was multiple vertebral compressions and calcification of chronic pancreatitis. It sounds like her transplant evaluation was pending chemical dependency treatment. She has been weaned off oxycodone, gabapentin and medical marijuana for this as well. PHYSICAL EXAM General: Alert, active, in no acute distress Head: Atraumatic Eyes: Icteric ENT: Moist oral mucosa, no oral ulcers Heart: Regular rate and rhythm, flow systolic murmur appreciated Lungs: Clear to auscultation bilaterally anteriorly [exam limited by severe tenderness to her bilateral flanks and inability to roll or sit] Abdomen: Distended but not tender Back: Severe tenderness to palpation of the flank muscles Extremities: +1 edema bilaterally Neuro: No gross deficits, no appreciated asterixis Psych: Tearful as she has been waiting for transplant and having significant amount of pain. ASSESSMENT AND PLAN Catia Carias is a 31 year old woman with past medical history pertinent for alcoholic cirrhosisdecompensated by refractory ascites needing paracentesis regularly, hepatic encephalopathy, and esophageal varices status post banding x6 01/28/2022, chronic pancreatitis, GERD, chronic pain, recent hospitalization 01/20-01/29 for MOSHE who is presenting with chronic bilateral flank/back pain It sounds like this is her chronic back pain flaring up. This looks like muscular in nature that is pretty tender to the touch and increases with movement and breathing at both sides of her back. Thereis no abdominal tenderness, fever, or confusion suspicious for SBP at this point. Given her large ascites, will plan for ultrasound guided paracentesis tomorrow. Will give her Flexeril and treat her pain. We will hopefully be able to discharge tomorrow after the paracentesis is done. Will get her backinto her full dose of diuresis and have her follow-up with her PCP during next week. Explained to her that MRI and other workup is something to be considered in the outpatient setting and may not be needed at all. I talked with to set expectations that will help her pain get managed and do paracentesis and have her follow with liver transplant outpatient. # Chronic pain, likely muscular # Alcoholic cirrhosis decompensated by refractory ascites needing paracentesis regularly, hepatic encephalopathy, and esophageal varices status post banding x6 01/28/2022 # Chronic pancreatitis # GERD # Chronic multifactorial anemia # Moderate right pleural effusion - give Flexeril p.r.n. for pain, Tylenol, lidocaine, Voltaren gel, heating pads. Opioids to be avoided and to be considered as a last resort - increase back her Lasix to 40 mg and spironolactone to 100 mg - US guided paracentesis tomorrow. Suspect this will help with her SOB; may need albumin afterwards - get INR tomorrow morning - will get CK - Continue home meds otherwise - rest of plan as per Dr. Silver documented in this encounter Consult Notes Evi Dickson M.S.N., M.H.A., R.N. 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 #5 Hepatic Failure Unspecified Without Coma (HCC) #6 Pancreatitis Chronic (HCC) #7 Moderate Or Severe Use Disorder (Dependence) Alcohol Remission (HCC) #8 Thrombocytopenia (HCC) #9 Deficiency Coagulation Acquired (HCC) #10 Hypertension Portal (HCC) #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 RESTRICTED PLAN Secondary insurance: N/A Does the patient have any financial concerns? no benefits: No Advance Directives Legal Decision Maker: Self Advance Directives Status: Not completed OBJECTIVE Baseline Functional Status Baseline Activities of Daily Living Mobility: Requires aide of device Dressing: Independent Feeding: Independent Bathing: Needs assistance Grooming: Needs assistance Toileting: Independent Behavior: Appropriate, Pleasant, Calm, Cooperative, Oriented Communication: Can write, Talks, Understands speaking, Understands Kiswahili, Reads Shopping: Needs assistance Transportation: Support from family Medication Management: Dependent Housekeeping: Dependent Meal Prep: Dependent Managing Finances: Independent Assistive Devices: Cane, Cellphone, Commode, Medication box, Handrails for stairs, Walker - front wheeled Services/Resources: Home health Agency Name: [facility] Services Provided: Medication Baseline Services/Resources Primary care clinic and provider: [facility] P.A.-C. Services/Resources: Home health Additional Resources: Anticipated Needs Functional Status: None Assistive Devices: Emergency call system, Walker - four wheeled, Tub/shower chair/bench Agency Name: [facility] Services Provided: Medication Anticipated Modifications to the Patient's Home: None Transportation Needs: Support from family Does the patient need discharge transport arranged?: No Phone Number for Ride/Caregiver: [phone] Gonzalo Anticipated Discharge Destination: Home or Self Care ASSESSMENT / PLAN Assessment: The advertising operations manager met with Catia Carias to discuss her current hospitalization and home goingneeds. The patient was unaccompanied. The patient was a reliable historian. The role of advertising operations manager was reviewed. The patient reviewed her prior level of care and support system. The patient receives support from her Boyfriend Lobito . Miss. Carias lives with her boyfriend Lobito in a one level apartment. She uses a walker or a cane at all times. She is dependent on Lobito for assistance with her daily ADL's as needed. She no longer drives and will have transportation if needed via Lobito. The patient described her living environment as a apartment without elevator access with 20 stairs to enter with rails. Housekeeping, grocery shopping, meal prep, and other household responsibilities have previously been completed by patient's boyfriend Lobito with some assistance from the patient. advertising operations manager discussed the patient's potential needs at dismissal based on their home setting, previous needs and responsibilities, homebound status, and relevant assessments with the patient. The patient will be safe and supported to return home with erasmo Robin . when medically ready. Support will be provided by Reinaldonaveen Lobito . The patient demonstrated understanding when discussing her home going plans and anticipated needs. Home Health Reconnect was completed with [facility] Nurse Misbah Crook. At this time, the care team has not identified any skilled post-hospital discharge care needs that require the assistance of the Care Management Team. After reviewing the patient's chart and meeting with the patient, the advertising operations manager deemed the LACE+/readmission questions were not necessary. The patient reports understanding that she will dismiss from the hospital when medically stable. Pending hospital course and medical readiness, no barriers to dismissal have been identified at this time. Plan: The patient agrees with the following plan. Patient's anticipated discharge disposition is: Home to Self Care with home health medication management. Transportation upon dismissal will be provided by family--Boyfriend Lobito . advertising operations manager recommended a shower seat. advertising operations manager provided information regarding the dismissal process. advertising operations manager placed or requested the following hospital-based consult orders and/or referrals: None. advertising operations manager will continue to assess for homegoing needs with the interdisciplinary team. advertising operations manager encouraged the patient to reach out with any questions/concerns. Care Management will continue to follow. Signed by: Destiny Aden, JoshuaHVentura RGabby 02/02/2022 documented in this encounter Nursing Notes Nabila Traore R.N. - 02/03/2022 6:00 PM CDT Shift Goals: Clinical Goals for the Shift: pt will have minimal pain and discharge Identify possible barriers to meeting goals/advancing plan of care: disease process End of Shift Summary: patient continues to have pain to abdomen and back which she reports is relieved in part by flexeril. She slept well throughout most of the shift. Oral intake encouraged. VSS, IV removed. AVS reviewed with patient and her significant other Lobito. They brought up concerns about insurance covering her flexeril, as this led to her readmission, as well as an interest in establishingcare regarding her potential future transplant through [facility]. These concerns were brought up to her medical team. Discharged home accompanied by her S/O. Criselda Marley R.N. - 02/03/2022 4:57 AM CDT Shift Goals: Clinical Goals for the Shift: Patient will have adequate pain control Identify possible barriers to meeting goals/advancing plan of care: comorbidities End of Shift Summary: Christelle seemed to be having a good night until shortly after midnight. She had a sudden onset of extreme pain that started at her paracentesis site and radiated toward the right hip. She was quite upset and in tears. Nothing we tried was working. Service was notified and came bedsideas Christelle was also experiencing confusion and she was lethargic. Christelle and her vitals were monitored more frequently throughout the night. She did wake again shortly after 03:00 and was confused about how long she'd been here at the hospital and was again experiencingpain and overall abdominal discomfort. Christelle had a dose of Acetaminophen and was repositioned in bed. She has been asleep since. Christelle is planning to discharge today, unless something changes. However, her ride cannot be here until17:00. Problem: SAFETY ADULT - RISK FOR FALL AND OR FALL INJURY Goal: Patient remains free from fall/fall injury Outcome: Progressing Note: Christelle remained free from any falls or injuries. Problem: PAIN - ADULT Goal: PT VERBALIZES/DEMONSTRATES ADEQUATE COMFORT LEVEL OR BASELINE Outcome: Progressing Note: Christelle had intermittent uncontrolled pain. Problem: DISCHARGE PLANNING Goal: Patient discharge needs identified Outcome: Progressing Note: Christelle is expecting to discharge today at 17:00. Electronically signed by: Criselda Marley R.N. 02/03/22 5:10 AM CDT Harish Bruce RGabby - 02/02/2022 5:50 AM CDT Problem: PAIN - ADULT Goal: PT VERBALIZES/DEMONSTRATES ADEQUATE COMFORT LEVEL OR BASELINE Outcome: Progressing Note: Pain poorly controlled overnight. Sx notified and ordered one time Oxy. Pain decreased for about 3-4 hours while patient slept. End of Shift Summary: Patient slept on and off throughout the night. C/o of nausea which was controlled with essential oils. Patient has 1 BM overnight. Plan for possible paracentesis today. Electronically signed by: Harish Massey R.N. 02/02/22 5:52 AM CDT documented in this encounter ED Notes Paty Goldberg P.A.-C. - 02/03/2022 6:08 PM CDT SUBJECTIVE CHIEF COMPLAINT/REASON FOR VISIT Altered Mental Status HISTORY OF PRESENT ILLNESS 31 year old female presenting with increasing fatigue and confusion, bilateral side pain in the setting of known liver disease and recent paracentesis. Denies fevers or chills. No vomiting or abdominalpain. Does have some amount of chronic back pain. Presents for evaluation. REVIEW OF SYSTEMS Constitutional: Positive for chills. Negative for fever. HENT: Negative for sore throat. Eyes: Negative for visual disturbance. Respiratory: Negative for shortness of breath. Cardiovascular: Negative for chest pain. Gastrointestinal: Negative for nausea and vomiting. Genitourinary: Negative for dysuria. Musculoskeletal: Positive for back pain. Negative for neck pain. Skin: Negative for rash. Neurological: Negative for headaches. OBJECTIVE Initial Vitals Temperature Pulse Rate Heart Rate Resp Rate Blood Pressure SpO2 02/01/22 1000 02/01/22 1000 02/01/22 1000 02/01/22 1000 02/01/22 1000 02/01/22 1000 37.1 ??C 99 93 24 117/73 92 % Pain Score 02/01/22 1006 8 PHYSICAL EXAMINATION Constitutional: Nursing note and vitals reviewed. No distress. HENT: Head: Normocephalic and atraumatic. Nose: Nose normal. No nasal discharge. Mouth/Throat: Oropharynx is clear and moist. Mucous membranes are moist. Eyes: Conjunctivae are normal. Pupils are equal, round, and reactive to light. Neck: Trachea normal. Neck supple. Cardiovascular: Normal rate, regular rhythm, normal heart sounds and normal pulses. Pulses are palpable. Capillary refill: takes less than 3 seconds Pulmonary/Chest: Effort normal and breath sounds normal. There is normal air entry. No tachypnea. Norespiratory distress. She has no wheezes. She exhibits no retraction. Abdominal: Soft. exhibits distension.There is no abdominal tenderness. Musculoskeletal: General: No deformity or edema. Cervical back: Normal range of motion and neck supple. Neurological: Alert and oriented to person, place, and time. Fatigued, but oriented and appropriately interacting Skin: Skin is warm, dry, intact and normal color. She is not diaphoretic. Psychiatric: She has a normal mood and affect. Behavior is normal. ASSESSMENT/PLAN IMPRESSION AND PLAN Confusion, side pain, weakness. Consider encephalopathy, infection, anemia among others. We have obtained lab work, cultures. Consider imaging given the side pain (not flank). Disposition pending clinical course, imaging studies. ED Course as of 02/04/22 1624 Sun Feb 01, 2022 1051 Lactate 1.45 1051 Hct 21 on VBG, consistent with priors 1119 Hemoglobin(!): 7.9 1119 White Blood Cell Count: 4.1 1120 Creatinine(!): 0.57 1141 Ammonia, P(!): 68 1529 IMPRESSION: 1. No acute pulmonary embolus. 2. Unchanged sequelae of cirrhosis and portal hypertension with large volume ascites, moderate size right pleural effusion, and anasarca. 3. Malpositioned IUD.. Final Diagnoses: as of 02/04/22 1624 Pain Flank Care Handoff Row Name 02/01/22 1658 Care Handoff Type of Handoff Admission handoff Paty Goldberg P.A.-C. 02/04/22 1627 Ciara Morgan R.N. - 02/01/2022 1:05 PM CDT Pt comes in w/ reported AMS. Pt could not explain why she is here and told nursing to ask the boyfriend. The boyfriend reported this AM she was confused and saying odd sentences. Upon arrival here she is, lethargic and c/o significant pain in her back, and flanks. Hx of liver cirrhosis. Has a tap sched uled for the coming for this coming Wednesday. Was seen in another ED Wednesday night to Wednesday morning, reported by BF. BF reported no findings. Pt c/o SOB, no chest pain. Increased fatigue over the past week. Decreased PO intake. Ciara Morgan R.N. 02/01/22 1309 documented in this encounter Miscellaneous Notes Hospital Course - Vj Rodrigez M.B., Ch.B. - 02/02/2022 10:23 AM CDT Ms. Carias is a 31 year old woman with past medical history pertinent for alcoholic cirrhosis decompensated by refractory ascites needing paracentesis regularly, hepatic encephalopathy, and esophageal varices status post banding x6 01/28/2022, chronic pancreatitis, GERD, chronic pain, recent hospitalization 01/20-01/29 for MOSHE who is presenting with chronic bilateral flank/back pain. She was hospitalized with the Medicine 3 service 01/20-01/29/2022 when she presented with right flank/back pain and MOSHE. At that time, SBP was ruled out, diuretics held, albumin given and paracentesis was done after which her MOSHE improved (thought to be prerenal in the setting of high dose of diuresis with probable contribution of compression from her large ascites). 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 Her MOSHE improved and diuretics were started at half dose at discharge. During that stay, she needed 3 units of red blood cell transfusion. Her anemia was thought to be multifactorial related to splenic sequestration, some nutritional deficiency[copper] and anemia of inflammation [corrected reticulocyte index was inappropriately normal]. The patient re-presented to the ED on 02/01 due to persistent flank pain. She was discharged with lidocaine, Voltaren gel, and Flexeril 5 mg b.i.d.. However, the patient was unable to get her Flexeril after discharge. Her insurance company covers Flexeril as prescribed her PCP, and she was unable to reach her PCP to fill this prescription. She presented to the ED due to her persistent pain unrelieved by her discharge medications. In the ED, she was afebrile and hemodynamically stable. Lab workup was unremarkable aside from her baseline hemoglobin of 7.9 baseline thrombocytopenia of 54. CT C/A/P angiogram demonstrated cirrhotic liver portal HTN, splenomegaly, moderate R pleural effusion, large volume ascites, diffuse anasarca, multilevel vertebral compressions. Due to the absence of imaging findings and tenderness on palpation, the patient's flank pain and back pain are thought to be secondary to a musculoskeletal cause. She was re-initiated on Flexeril 5 mg b.i.d. as well as lidocaine patch, Voltaren gel, and heat as needed. She was also reinitiated on her home dose of Lasix and spironolactone to help facilitate diuresis. She received a paracentesis on 02/02, with removal of 4.6 L of fluid, which improved her shortness of breath. 25 g IV albumin was givento prevent reaccumulation. The patient was discharged to home in a stable condition on 02/03 with outpatient follow-up with herliver transplant team on 02/12 and her PCP on 02/05 documented in this encounter Plan of Treatment Upcoming Encounters Date Type Specialty Care Team Description [facility] Radiology [facility] 2 Encounter Tyrell Rodriguez M.D. [address] [place] [phone] [facility] Gastroenterology and [facility] 2 Encounter Hepatology Tyrell Rodriguez, Lilian [address] [place] [address] [phone] Surgery Gastroenterology and [facility] ESOPHAG OGASTRODUODENOSCOPY 2 Hepatology Tyrell Rodriguez, Lilian [address] [place] [phone] Telemedicine Transplant 2 Lab Laboratory Medicine Karin, Olinda Gannon M.D., Ph.D. [address] [place] [phone] Lab Laboratory Medicine Olinda Frazier M.D., Ph.D. [address] [place] [phone] Office Visit Transplant Karin, 2 Adeline Gannon M.D., Ph.D. [address] [place] [phone] Office Visit [facility], 2 Medicine Vernell Perez [address] [place] [phone] Appointment Radiology Matthew Jerome 2 YJoshuaBSumaBSumaSSuma, Lilian [address] [place] [phone] Appointment Gastroenterology and [place], 2 Hepatology Yue Burciaga M.D. [address] [place] [phone] Office Visit Gastroenterology and Matthew Jerome 2 Hepatology Joshua RodriguezB.BSumaSSuma, Lilian [address] [place] [phone] Appointment Radiology Matthew Jerome 2 Y M.B.B.SSuma, Lilian [address] [place] [phone] Pending Results Name Type Priority Associated Diagnoses Date/Ti me Bacteria / Raudel Microbiology STAT 2 10:34 AM Culture, Blood #1 CDT Bacteria / Raudel Microbiology STAT 2 10:47 AM Culture, Blood # 2 CDT Scheduled Orders Name Type Priority Associated Diagnoses Order S chedule Bacterial Culture, Microbiology STAT STAT for 1 Occurrences Aerobic + Susc, starting 06/2021 Urine until 2 Gram Stain Microbiology STAT STAT for 1 Occu rrences starting 2021 until 2 Scheduled Procedures Name Priority Associated Diagnoses Date/Time ESOPHAGOGASTRODUODENOSCOPY Cirrhosis Alc oholic (HCC) 02/10/2022 8:45 AM CDT Hypertension Portal (HCC) documented as of this encounter Procedures Procedure Name Priority Date/Time Associated Comments Diagnosis US PARACENTESIS RAD - Routine 02/02/2022 9:26 Results for this WITH IMAGING (most inpatients AM CDT procedure a re in GUIDANCE and all the results outpatients) section. CELL COUNT AND Timed 02/02/2022 8:54 Ascites Chronic Results for this DIFFERENTIAL, BF AM CDT procedure a re in the results section. GRAM STAIN Timed 02/02/2022 8:54 Ascites Chronic Results f or this AM CDT procedure are i n the results section. PROTHROMBIN TIME Routine 02/02/2022 6:14 Results for this (PT), P AM CDT procedure are i n the results section. CBC WITH Routine 02/02/2022 6:14 Results for this DIFFERENTIAL, B AM CDT procedure ar e in the results section. CREATINE KINASE Timed 02/02/2022 6:14 Results f or this (CK), S AM CDT procedure are i n the results section. BASIC METABOLIC Routine 02/02/2022 6:14 Results f or this PANEL, S/P AM CDT procedure are i n the results section. CT CHEST ANGIOGRAM RAD - Emergent 02/01/2022 2:42 Resu lts for this AND PULMONARY (Fastest; for the PM CDT procedure are in ARTERIES WITH IV most critically the resu lts CONTRAST ill patients) section. CT ABDOMEN PELVIS RAD - Semiurgent 02/01/2022 2:42 Res ults for this WITH IV CONTRAST (Fast; most ED PM CDT procedure are in patients; some the results inpatients) section. HC URINALYSIS AUTO Routine 02/01/2022 1:42 Result s for this WO MICRO PM CDT procedure are i n the results section. HC OSMOLALITY ASSAY STAT 02/01/2022 1:37 Resul ts for this URINE PM CDT procedure are i n the results section. DIPSTICK, U STAT 02/01/2022 1:37 Results for this PM CDT procedure are i n the results section. PH, RANDOM, U STAT 02/01/2022 1:37 Results for this PM CDT procedure are i n the results section. MICROSCOPIC MANUAL STAT 02/01/2022 1:37 Result s for this PM CDT procedure are i n the results section. GRAM'S ST, U STAT 02/01/2022 1:37 Results for this PM CDT procedure are i n the results section. URINALYSIS WITH STAT 02/01/2022 1:37 Results f or this MICROSCOPIC PM CDT procedure are i n the results section. LACTATE, B/P Timed 02/01/2022 1:32 Results for this PM CDT procedure are i n the results section. DX CHEST AP OR PA RAD - Semiurgent 02/01/2022 11:14 Re sults for this AND LATERAL 2 VIEWS (Fast; most ED AM CDT proced ure are in patients; some the results inpatients) section. BACTERIA / RAUDEL STAT 02/01/2022 10:47 CULTURE, BLOOD AM CDT VBG & LYTES CG8+, STAT 02/01/2022 10:36 Result s for this POCT, B AM CDT procedure are i n the results section. LACTATE, POCT, B STAT 02/01/2022 10:36 Results for this AM CDT procedure are i n the results section. HEPATIC FUNCTION STAT 02/01/2022 10:34 Results for this PANEL, S AM CDT procedure are i n the results section. BACTERIA / RAUDEL STAT 02/01/2022 10:34 CULTURE, BLOOD AM CDT CBC WITH STAT 02/01/2022 10:34 Results for this DIFFERENTIAL, B AM CDT procedure ar e in the results section. AMMONIA STAT 02/01/2022 10:34 Results for this AM CDT procedure are i n the results section. BASIC METABOLIC STAT 02/01/2022 10:34 Results for this PANEL, S/P AM CDT procedure are i n the results section. VBG & LYTES CG8+, Routine 02/01/2022 10:31 Result s for this POCT, B AM CDT procedure are i n the results section. LACTATE, POCT, B Routine 02/01/2022 10:31 Results for this AM CDT procedure are i n the results section. ECG STAT 02/01/2022 10:22 Results for this AM CDT procedure are i n the results section. documented in this encounter Results US Paracentesis with Imaging Guidance (02/02/2022 9:26 AM CDT) Anatomical Region Laterality Modality Abdomen, Ultrasound RST LOS, Ultrasound ARZ LOS, Procedure F LA N/A Ultrasound LOS, Abdominal FLA LOS, Procedural Specimen (Source) Anatomical Collection Method Collection Time Re ceived Time Location / / Volume Laterality 02/02/2022 9:37 AM CDT Impressions 02/02/2022 9:53 AM CDT Ultrasound-guided paracentesis. TRAFFIC INVESTIGATOR Narrative 02/02/2022 9:53 AM CDT EXAM: US PARACENTESIS WITH IMAGING [...] size: 5 Fr centesis catheter. Volume aspirated: 4650 ml. Complication: None. Blood loss: None. Purpose: Diagnostic and therapeutic. PATIENT INSTRUCTIONS: Patient may be dis missed from the radiology department when dismissal criteria met. POST-PROCEDURE DIAGNOSIS: Ascites. Procedure Note Gerard Hutton M.D. - 02/02/2022Format ting of this note might be different [...] size: 5 Fr centesis catheter. Volume aspirated: 4650 ml. Complication: None. Blood loss: None. Purpose: Diagnostic and therapeutic. PATIENT INSTRUCTIONS: Patient may be dis missed from the radiology department when dismissal criteria met. POST-PROCEDURE DIAGNOSIS: Ascites. IMPRESSION: Ultrasound-guided paracentesis. TRAFFIC INVESTIGATOR Yue Silver M.D. IMG US PROCEDURES Gram Stain (02/02/2022 8:54 AM CDT) [facility] Method Time Signature Gram Stain No organisms 02/02/2022 DTL seen. 12:55 PM CDT Specimen Anatomical Collection Method Collection Time Receive d Time (Source) Location / / Volume Laterality Fluid 02/02/2022 8:54 AM (Peritoneal CDT 10:20 AM CDT Fluid) Comment: Specimen Source Site: Fluid Matthew Santillan M.D. LAB MICROBIOLOGY - GENERAL ORDERABLES Performing Organization Address City/State/ZIP Code Phon e Number [facility] - [address] [place], [place] [address] [facility] [place] [address] Laboratories-[facility] [address] Cell Count and Differential, Body Fluid (02/02/2022 8:54 AM CDT) [facility] Method Time Signature Fluid Type Peritoneal- 02/02/2022 DHPM Paracentesi 10:31 AM CDT s Gross Serous 02/02/2022 DHPM Appearance 10:31 AM CDT Total Nucleated 88 /mcL 02/02/2022 DHPM Cells 10:31 AM CDT Comment: ----REFERENCE VALUE---- Synovial: <150 /mcL Peritoneal: <500 /mcL Pleural: <500 /mcL Pericardial: <500 /mcL ----ADDITIONAL INFORMATION---- This test has been modified from the man flakitar's instructions. Its performance characteri stics were determined by [facility] in a manner co nsistent with CLIA requirements. This test has not bee n cleared or approved by the U.S. Food and Drug Admin istration. Lymphocytes 85 Synovial <75% % 02/02/2022 11:59 AM CD T DHPM Monocytes/Macrophages 13 Synovial <70% % 02/02/2022 1 1:59 AM CDT DHPM Other Cells 2 % 02/02/2022 11:59 AM CDT DHPM Comment: ----REFERENCE VALUE---- The reference range and other method performance specifications have not been established for this bodyfluid. The test result must be integrated into the clinical context for interpretation. Other Cells Are: Mesothelial cells 02/02/2022 11:5 9 AM CDT DHPM Comment SeeComment 02/02/2022 11:59 AM CDT DHPM Comment: No blasts or malignant cells se en. Erythrophagocytosis present. Reviewed by: Ruth 02/02/2022 11:59 AM CDT DHP M Specimen Anatomical Collection Method Collection Time Receive d Time (Source) Location / / Volume Laterality Fluid 02/02/2022 8:54 AM 2 (Peritoneal CDT 10:05 AM CDT Fluid) Matthew Santillan M.D. LAB BODY FLUIDS AND STOOLS ORDERABLES Performing Organization Address City/[facility] Code Phon e Number [facility] - [address] CK (Creatine Kinase) (02/02/2022 6:14 AM CDT) P athologist Signature Creatine Kinase 29 26 - 192 02/02/2022 DTL (CK), S U/L 7:44 AM CDT Specimen Anatomical Collection Method Collection Time Receive d Time (Source) Location / / Volume Laterality Blood (Blood, 02/02/2022 6:14 AM 02/03/20 22 7:21 Venous) CDT AM CDT Darrick DanielSSuma LAB BLOOD ADD-ON Performing Organization Address City/[facility]/ZIP Code Phon e Number [facility] - [address] [place] [phone] [facility] [place] [address] (ABNORMAL) Prothrombin Time (PT) (02/02/2022 6:14 AM CDT) [facility] Method Time Signature Prothrombin 35.3 (H) 9.4 - 12.5 02/02/2022 DTL Time, P sec 7:23 AM CDT INR 3.1 0.9 - 1.1 02/02/2022 DTL 7:23 AM CDT Comment: ----ADDITIONAL INFORMATION---- Standard intensity warfarin therapeutic range: 2.0 to 3.0 ?? High intensity warfarin therapeutic rang e: 2.5 to 3.5 Specimen Anatomical Collection Method Collection Time Receive d Time (Source) Location / / Volume Laterality Blood (Blood, 02/02/2022 6:14 AM 02/03/20 7:00 Venous) CDT AM CDT Darrick Santillan LAB BLOOD ADD-ON Performing Organization Address City/State/ZIP Code Phon e Number [facility] - [address] [place] [address] [place] [address] [place] [address] Laboratories-[address] (ABNORMAL) CBC with Differential, Blood (02/02/2022 6:14 AM CDT) [facility] Method Time Signature Hemoglobin 7.3 (L) 11.6 - 02/02/2022 DTL 15.0 g/dL 7:46 AM CDT Hematocrit 22.6 (L) 35.5 - 02/02/2022 DTL 44.9 % 7:46 AM CDT Erythrocytes 2.19 (L) 3.92 - 02/02/2022 DTL 5.13 7:46 AM CDT x10(12)/L MCV 103.2 (H) 78.2 - 02/02/2022 DTL 97.9 fL 7:46 AM CDT RBC Distrib Width 22.9 (H) 12.2 - 02/02/2022 DTL 16.1 % 7:46 AM CDT Platelet Count 52 (L) 157 - 371 02/02/2022 DTL x10(9)/L 8:31 AM CDT Leukocytes 3.9 3.4 - 9.6 02/02/2022 DTL x10(9)/L 8:31 AM CDT Neutrophils 2.36 1.56 - 02/02/2022 DTL 6.45 7:46 AM CDT x10(9)/L Lymphocytes 0.89 (L) 0.95 - 02/02/2022 DTL 3.07 7:46 AM CDT x10(9)/L Monocytes 0.51 0.26 - 02/02/2022 DTL 0.81 7:46 AM CDT x10(9)/L Eosinophils 0.09 0.03 - 02/02/2022 DTL 0.48 7:46 AM CDT x10(9)/L Basophils <0.03 0.01 - 02/02/2022 DTL 0.08 7:46 AM CDT x10(9)/L Specimen Anatomical Collection Method Collection Time Receive d Time (Source) Location / / Volume Laterality Blood (Blood, 02/02/2022 6:14 AM 02/03/20 7:00 Venous) CDT AM CDT Yue Silver M.D. LAB BLOOD ADD-ON Performing Organization Address City/State/[facility] Code Phon e Number [facility] - [address] [place] [address] [facility] [place] [address] Laboratories-[facility] 200 [facility] (ABNORMAL) Basic Metabolic Panel (02/02/2022 6:14 AM CDT) P athologist Signature Potassium, S 3.8 3.6 - 5.2 02/02/2022 DTL mmol/L 7:37 AM CDT Sodium, S 139 135 - 145 02/02/2022 DTL mmol/L 7:37 AM CDT Chloride, S 108 (H) 98 - 107 02/02/2022 DTL mmol/L 7:37 AM CDT Bicarbonate, S 21 (L) 22 - 29 02/02/2022 DTL mmol/L 7:37 AM CDT Anion Gap 10 7 - 15 02/02/2022 DTL 7:37 AM CDT BUN (Blood Urea 10 6 - 21 02/02/2022 DTL Nitrogen), S mg/dL 7:37 AM CDT Creatinine 0.75 0.59 - 02/02/2022 DTL 1.04 mg/dL 7:50 AM CDT Estimated GFR >90 >=60 02/02/2022 DTL (eGFR) mL/min/BSA 7:50 AM CDT Comment: Estimated GFR calculated using the 2020 CKD_EPI creatinine equation. Calcium, Total, S 8.7 8.6 - 10.0 mg/dL 02/02/2022 7:37 AM CDT DTL Glucose, S 94 70 - 140 mg/dL 02/02/2022 7:37 AM CDT D TL Specimen Anatomical Collection Method Collection Time Receive d Time (Source) Location / / Volume Laterality Blood (Blood, 02/02/2022 6:14 AM 02/03/20 7:21 Venous) CDT AM CDT Yue Silver M.D. LAB BLOOD ADD-ON Performing Organization Address City/State/ZIP Code Phon e Number [facility] - [address] [place], [place] [address] [facility] [place] [address] Laboratories[facility] [address] Abdomen Pelvis with IV Contrast (02/01/2022 2:42 PM CDT) Anatomical Region Laterality Modality Abdomen, Pelvis, Abdominal RST LOS, N/A Comp uted Tomography, Computed Abdominal ARZ LOS, Abdominal FLA LOS José Miguel ography Specimen (Source) Anatomical Collection Method Collection Time Re ceived Time Location / / Volume Laterality 02/01/2022 2:37 PM CDT Impressions 02/01/2022 2:54 PM CDT 1. ??No acute pulmonary embolus. 2. ??Unchanged sequelae of cirrhosis and portal hypertension with large volume ascites, moderate size right pleural effusion, and anasarca. 3. ??Malpositioned IUD.. Narrative 02/01/2022 2:54 PM CDT EXAM: ??CT CHEST ANGIOGRAM AND PULMONARY ARTERIES WITH IV CONTRAST, CT ABDOMEN PELVIS WITH IV CONTRAST Including 3D image post-processing. COMPARISON: ??Multiple prior CTs, most r ecent 01/31/2022. FINDINGS: CHEST: Negative for acute pulmonary embo jorge. Unchanged moderate size right pleural effusion and scattered atelectasis. ABDOMEN/PELVIS: No change. Cirrhotic juanis er with portal hypertension. Splenomegaly. Large volume ascites. Paraesophageal varices. Scatter ed submucosal bowel wall edema likely related to portal hypertensive enteropathy. Calcifications of chronic pancreatitis. IUD abnormally positioned in the uterus. Diffuse anasarca. Multilevel fred tebral compressions. Procedure Note Silvestre Montgomery M.D. - 02/01/2022Forma tting of this note might be different from the original. EXAM: CT CHEST ANGIOGRAM AND PULMONARY A RTERIES WITH IV CONTRAST, CT ABDOMEN PELVIS WITH IV CONTRAST Including 3D image post-processing. COMPARISON: Multiple prior CTs, most rec ent 01/31/2022. FINDINGS: CHEST: Negative for acute pulmonary embo jorge. Unchanged moderate size right pleural effusion and scattered atelectasis. ABDOMEN/PELVIS: No change. Cirrhotic juanis er with portal hypertension. Splenomegaly. Large volume ascites. Paraesophageal varices. Scatter ed submucosal bowel wall edema likely related to portal hypertensive enteropathy. Calcifications of chronic pancreatitis. IUD abnormally positioned in the uterus. Diffuse anasarca. Multilevel fred tebral compressions. IMPRESSION: 1. No acute pulmonary embolus. 2. Unchanged sequelae of cirrhosis and p ortal hypertension with large volume ascites, moderate size right pleural effusion, and anasarca. 3. Malpositioned IUD.. Paty PERALES CT PROCEDURES CT Chest Angiogram and Pulmonary Arteries with IV Contrast (02/01/2022 2:42 PM CDT) Anatomical Region Laterality Modality Chest, Cardiovascular RST LOS, Thoracic N/A Computed Tomography, Computed ARZ LOS, Thoracic FLA LOS Tomography Specimen (Source) Anatomical Collection Method Collection Time Re ceived Time Location / / Volume Laterality 02/01/2022 2:35 PM CDT Impressions 02/01/2022 2:54 PM CDT 1. ??No acute pulmonary embolus. 2. ??Unchanged sequelae of cirrhosis and portal hypertension with large volume ascites, moderate size right pleural effusion, and anasarca. 3. ??Malpositioned IUD.. Narrative 02/01/2022 2:54 PM CDT EXAM: ??CT CHEST ANGIOGRAM AND PULMONARY ARTERIES WITH IV CONTRAST, CT ABDOMEN PELVIS WITH IV CONTRAST Including 3D image post-processing. COMPARISON: ??Multiple prior CTs, most r ecent 01/31/2022. FINDINGS: CHEST: Negative for acute pulmonary embo jorge. Unchanged moderate size right pleural effusion and scattered atelectasis. ABDOMEN/PELVIS: No change. Cirrhotic junais er with portal hypertension. Splenomegaly. Large volume ascites. Paraesophageal varices. Scatter ed submucosal bowel wall edema likely related to portal hypertensive enteropathy. Calcifications of chronic pancreatitis. IUD abnormally positioned in the uterus. Diffuse anasarca. Multilevel fred tebral compressions. Procedure Note Silvestre Montgomery M.D. - 02/01/2022Forma tting of this note might be different from the original. EXAM: CT CHEST ANGIOGRAM AND PULMONARY A RTERIES WITH IV CONTRAST, CT ABDOMEN PELVIS WITH IV CONTRAST Including 3D image post-processing. COMPARISON: Multiple prior CTs, most rec ent 01/31/2022. FINDINGS: CHEST: Negative for acute pulmonary embo jorge. Unchanged moderate size right pleural effusion and scattered atelectasis. ABDOMEN/PELVIS: No change. Cirrhotic juanis er with portal hypertension. Splenomegaly. Large volume ascites. Paraesophageal varices. Scatter ed submucosal bowel wall edema likely related to portal hypertensive enteropathy. Calcifications of chronic pancreatitis. IUD abnormally positioned in the uterus. Diffuse anasarca. Multilevel fred tebral compressions. IMPRESSION: 1. No acute pulmonary embolus. 2. Unchanged sequelae of cirrhosis and p ortal hypertension with large volume ascites, moderate size right pleural effusion, and anasarca. 3. Malpositioned IUD.. Paty Goldberg P.A.-C. [facility] PROCEDURES (ABNORMAL) Dipstick, POCT, Urine (02/01/2022 1:42 PM CDT) [facility] Method Time Signature Glucose, 100 (A) Negative 02/01/2022 PCED POCT, U mg/dL 1:44 PM CDT Ketone, POCT, Trace (A) Negative 02/01/2022 PCED U mg/dL 1:44 PM CDT Specific 1.020 1.005 - 02/01/2022 PCED [place], 1.030 1:44 PM CDT POCT, U Blood, POCT, Trace (A) Negative 02/01/2022 PCED U 1:44 PM CDT pH, POCT, 6.0 5.0 - 8.0 02/01/2022 PCED Urine 1:44 PM CDT Protein, 30 (A) Negative 02/01/2022 PCED POCT, U mg/dL 1:44 PM CDT Nitrites, Negative Negative 02/01/2022 PCED POCT, U 1:44 PM CDT Leukocytes, Negative Negative 02/01/2022 PCED POCT, U 1:44 PM CDT Specimen Anatomical Collection Method Collection Time Receive d Time (Source) Location / / Volume Laterality Urine 02/01/2022 1:42 PM 2 1:45 CDT PM CDT Unknown Provider LAB POCT ORDERABLES - DEVICE Performing Organization Address City/[facility]/ZIP [facility] Phon e Number POC [facility] [address] [place] [address] OUTPATIENT LABS PCED [facility] [place] [address] [facility] 200 [facility] (ABNORMAL) Dipstick, Urine (02/01/2022 1:37 PM CDT) Patholo gist Method Time Signature Hemoglobin, Negative Negative 02/01/2022 DTL QL, U 8:21 PM CDT Leukocyte Negative Negative 02/01/2022 DTL Esterase, U 8:21 PM CDT Nitrite, U Negative Negative 02/01/2022 DTL 8:21 PM CDT Ketone, U 5 (A) Negative 02/01/2022 DTL mg/dL 8:21 PM CDT Glucose, U Negative Negative 02/01/2022 DTL mg/dL 8:21 PM CDT Specimen Anatomical Collection Method Collection Time Receive d Time (Source) Location / / Volume Laterality Urine 02/01/2022 1:37 PM 2 2:09 CDT PM CDT Paty Goldberg P.A.-C. LAB URINE ORDERABLES Performing Organization Address City/State/ZIP Code Phon e Number [facility] - [address] [place], [place] [address] [facility] [place] [place] [address] [facility] 200 [facility] Osmolality, Urine (02/01/2022 1:37 PM CDT) P athologist Signature Osmolality, U 548 150 - 1150 02/01/2022 DTL mOsm/kg 8:41 PM CDT Specimen Anatomical Collection Method Collection Time Receive d Time (Source) Location / / Volume Laterality Urine 02/01/2022 1:37 PM 2 2:09 CDT PM CDT Paty Goldberg P.A.-C. LAB URINE ORDERABLES Performing Organization Address City/[facility]/ZIP [facility] Phon e Number [facility] - [address] pH, Random, Urine (02/01/2022 1:37 PM CDT) athologist Signature pH, Random, U 5.9 4.5 - 8.0 02/01/2022 DTL 8:41 PM CDT Specimen Anatomical Collection Method Collection Time Receive d Time (Source) Location / / Volume Laterality Urine 02/01/2022 1:37 PM 2 2:09 CDT PM CDT Paty Goldberg P.A.-C. LAB URINE ORDERABLES Performing Organization Address [facility] Phon e Number [facility] [address] (ABNORMAL) Microscopic Manual (02/01/2022 1:37 PM CDT) athologist Signature Microscopy Abnormal 02/01/2022 DTL 8:35 PM CDT RBC <3 <3 /hpf 02/01/2022 DTL 8:35 PM CDT WBC 1-3 /hpf 02/01/2022 DTL 8:35 PM CDT Comment: ----REFERENCE VALUE---- 1-3 ??(Males) 1-10 (Females) Transitional Epithelial Cells 1-3 (A) /hpf 02/01/2022 8:35 PM CDT DT Specimen Anatomical Collection Method Collection Time Receive d Time (Source) Location / / Volume Laterality Urine 02/01/2022 1:37 PM 2 2:09 CDT PM CDT Paty Goldberg P.A.-C. LAB URINE ORDERABLES Performing Organization Address City/[facility] Phon e Number [facility] [address] (ABNORMAL) Gram Stain, Urine (02/01/2022 1:37 PM CDT) [facility] Signature Source Urine, Urine, 02/01/2022 DTL Midstream 2:09 PM CDT Gram Stain, U Positive (A) Negative 02/01/2022 DTL 2:36 PM CDT Comment: Many Gram-positive cocci Specimen Anatomical Collection Method Collection Time Receive d Time (Source) Location / / Volume Laterality Urine 02/01/2022 1:37 PM 2:08 CDT PM CDT Paty Goldberg P.A.-C. LAB URINE ORDERABLES Performing Organization Address City/[facility] Phon e Number [facility] [id number] [place] [address] (ABNORMAL) Urinalysis with Microscopic: Urine, Midstream (02/01/2022 1:37 PM CDT) [facility] [employer] Method Time Signature Source Urine, Urine, 02/01/2022 DTL Midstream 2:09 PM CDT Color, U Red (A) 02/01/2022 DTL 2:09 PM CDT Clarity, U Clear 02/01/2022 DTL 2:09 PM CDT Protein, U 49 (H) <26 mg/dL 02/01/2022 DTL 2:53 PM CDT Protein/Osmol 0.89 (H) <0.42 02/01/2022 DTL ality ratio 8:41 PM CDT Predicted 24 604 mg/24 h 02/01/2022 DTL Hr Protein 8:41 PM CDT Predicted 149-2447 mg/24 h 02/01/2022 DTL Range 8:41 PM CDT Specimen Anatomical Collection Method Collection Time Receive d Time (Source) Location / / Volume Laterality Urine (Urine, 02/01/2022 1:37 PM 02/02/20 22 2:08 Midstream) CDT PM CDT Paty Goldberg P.A.-C. LAB URINE ORDERABLES Performing Organization Address City/State/ZIP [facility] Phon e Number [facility] - [address] [place] [address] [facility] 200 [facility] Lactate (02/01/2022 1:32 PM CDT) P athologist Signature Lactate, P 1.6 0.5 - 2.2 02/01/2022 [facility] mmol/L 1:50 PM CDT Specimen Anatomical Collection Method Collection Time Receive d Time (Source) Location / / Volume Laterality Blood (Blood, 02/01/2022 1:32 PM 02/02/20 1:37 Venous) CDT PM CDT Paty Goldberg P.A.-C. LAB BLOOD NON ADD-ON Performing Organization Address City/State/ZIP Code Phon e Number [facility] - [address] [place] [address] [place] [address] [place] [address] [facility] [address] [facility] DX Chest AP or PA and Lateral 2 Views (02/01/2022 11:14 AM CDT) Anatomical Region Laterality Modality Chest, Thoracic RST LOS, Thoracic ARZ LOS, Thoracic N/A Digital Radiography FLA LOS Specimen (Source) Anatomical Collection Method Collection Time Re ceived Time Location / / Volume Laterality 02/01/2022 11:15 AM CDT Impressions 02/01/2022 11:16 AM CDT Comparison to 01/09/2022. Heart size upper limits of normal, unchanged. Large abdominal ascites places mass effect upon the diap hragms. Increased small to moderate right pleural effusion and moderate lower right lung atelectasi s versus consolidation. Mild left lung atelectasis. This is largely new since 01/09/2022. Narrative 02/01/2022 11:16 AM CDT EXAM: ??DX CHEST AP OR PA AND LATERAL 2 VIEWS Procedure Note Wali Gross M.D. - 02/01/2022For matting of this note might be different from the original. EXAM: DX CHEST AP OR PA AND LATERAL 2 EWS IMPRESSION: Comparison to 01/09/2022. Heart size upp er limits of normal, unchanged. Large abdominal ascites places mass effect upon the diap hragms. Increased small to moderate right pleural effusion and moderate lower right lung atelectasi s versus consolidation. Mild left lung atelectasis. This is largely new since 01/09/2022. Paty Goldberg P.A.-C. IMG DIAGNOSTIC IMAGING PROCE DURES Lactate, POCT (02/01/2022 10:36 AM CDT) Analysis Performed At Patho logist Time Signature Lactate, POCT Collected DEFAULT 02/01/2022 SMLX 10:36 AM CDT Specimen Anatomical Collection Method Collection Time Receive d Time (Source) Location / / Volume Laterality Blood (Blood, 02/01/2022 10:36 02/01/2022 Venous) AM CDT 10:36 AM CDT Paty Goldberg P.A.-C. LAB POCT ORDERABLES - DEVICE Performing Organization Address [facility] Phon e Number [address] Venous Blood Gas and Electrolytes CG8+, POCT (02/01/2022 10:36 AM CDT) Analysis Performed At Patho logist Time Signature VBG & Lytes Collected DEFAULT 02/01/2022 SMLX CG8+, POCT, B 10:36 AM CDT Specimen Anatomical Collection Method Collection Time Receive d Time (Source) Location / / Volume Laterality Blood (Blood, 02/01/2022 10:36 02/01/2022 Venous) AM CDT 10:36 AM CDT Paty Goldberg P.A.-C. LAB POCT ORDERABLES - DEVICE Performing Organization Address [facility] Phon e Number [address] [place] [address] (ABNORMAL) Hepatic Function Panel (02/01/2022 10:34 AM CDT) Patholo gist Method Time Signature Bilirubin, Total, S 10.7 (H) <=1.2 02/01/2022 DTL mg/dL 11:35 AM CDT Bilirubin, Direct, S 4.0 (H) 0.0 - 0.3 02/01/2022 DTL mg/dL 11:35 AM CDT Aspartate 62 (H) 8 - 43 02/01/2022 DTL Aminotransferase U/L 11:35 AM (AST), S CDT Alanine 24 7 - 45 02/01/2022 DTL Aminotransferase U/L 11:35 AM (ALT), S CDT Alkaline 297 (H) 35 - 104 02/01/2022 DTL Phosphatase, S U/L 11:35 AM CDT Albumin, S 4.1 3.5 - 5.0 02/01/2022 DTL g/dL 11:35 AM CDT Protein, Total, S 5.0 (L) 6.3 - 7.9 02/01/2022 DTL g/dL 11:35 AM CDT Specimen Anatomical Collection Method Collection Time Receive d Time (Source) Location / / Volume Laterality Blood (Blood, 02/01/2022 10:34 02/01/2022 Venous) AM CDT 11:15 AM CDT Paty Goldberg P.A.-C. LAB BLOOD ADD-ON Performing Organization Address City/State/[facility] Code Phon e Number [facility] - 200 [place], [place] [address] [facility] [place] [address] [facility] 200 [facility] (ABNORMAL) CBC with Differential, Blood (02/01/2022 10:34 AM CDT) [facility] Method Time Signature Hemoglobin 7.9 (L) 11.6 - 02/01/2022 [facility] 15.0 g/dL 10:57 AM CDT Hematocrit 23.0 (L) 35.5 - 02/01/2022 [facility] 44.9 % 10:57 AM CDT Erythrocytes 2.26 (L) 3.92 - 02/01/2022 [facility] 5.13 10:57 AM CDT x10(12)/L MCV 101.8 (H) 78.2 - 02/01/2022 ST[facility] 97.9 fL 10:57 AM CDT RBC Distrib An accurate 12.2 - 02/01/2022 [facility] Width RDW can not 16.1 % 11:16 AM CDT be determined. Platelet Count 54 (L) 157 - 371 02/01/2022 [facility] x10(9)/L 10:57 AM CDT Leukocytes 4.1 3.4 - 9.6 02/01/2022 [facility] x10(9)/L 10:57 AM CDT Neutrophils 2.98 1.56 - 02/01/2022 [facility] 6.45 11:16 AM CDT x10(9)/L Lymphocytes 0.69 (L) 0.95 - 02/01/2022 [facility] 3.07 11:16 AM CDT x10(9)/L Monocytes 0.36 0.26 - 02/01/2022 [facility] 0.81 11:16 AM CDT x10(9)/L Eosinophils 0.08 0.03 - 02/01/2022 [facility] 0.48 11:16 AM CDT x10(9)/L Basophils <0.03 0.01 - 02/01/2022 [facility] 0.08 11:16 AM CDT x10(9)/L Specimen Anatomical Collection Method Collection Time Receive d Time (Source) Location / / Volume Laterality Blood (Blood, 02/01/2022 10:34 02/01/2022 Venous) AM CDT 10:53 AM CDT Paty Goldberg P.A.-C. LAB BLOOD ADD-ON Performing Organization Address City/State/ZIP Code Phon e Number [facility] - 200 [place], [place] [address] [place] [address] [facility] [address] [facility] (ABNORMAL) Basic Metabolic Panel (02/01/2022 10:34 AM CDT) Analysis Performed At Patho logist Time Signature Potassium, P 4.1 3.6 - 5.2 02/01/2022 STMA mmol/L 11:11 AM CDT Sodium, P 140 135 - 145 02/01/2022 [facility] mmol/L 11:11 AM CDT Chloride, P 103 98 - 107 02/01/2022 [facility] mmol/L 11:11 AM CDT Bicarbonate, P 21 (L) 22 - 29 02/01/2022 [facility] mmol/L 11:11 AM CDT Anion Gap, P 16 (H) 7 - 15 02/01/2022 [facility] 11:11 AM CDT BUN (Blood Urea 7 6 - 21 02/01/2022 STMA Nitrogen), P mg/dL 11:11 AM CDT Creatinine 0.57 (L) 0.59 - 02/01/2022 [facility] 1.04 mg/dL 11:11 AM CDT Estimated GFR >90 >=60 02/01/2022 [facility] (eGFR) mL/min/BSA 11:11 AM CDT Comment: Estimated GFR calculated using the 2020 CKD_EPI creatinine equation. Calcium, Total, P 9.2 8.6 - 10.0 mg/dL 02/01/2022 11:1 1 AM CDT STMA Glucose, P 142 (H) 70 - 140 mg/dL 02/01/2022 11:11 AM CDT STMA Specimen Anatomical Collection Method Collection Time Receive d Time (Source) Location / / Volume Laterality Blood (Blood, 02/01/2022 10:34 02/01/2022 Venous) AM CDT 10:53 AM CDT Paty Goldberg P.A.-C. LAB BLOOD ADD-ON Performing Organization Address City/[facility] Phon e Number [facility] - 200 [place] [id number] [address] (ABNORMAL) Ammonia (02/01/2022 10:34 AM CDT) athologist Signature Ammonia, P 68 (H) <=30 02/01/2022 DT mcmol/L 11:32 AM CDT Specimen Anatomical Collection Method Collection Time Receive d Time (Source) Location / / Volume Laterality Blood (Blood, 02/01/2022 10:34 02/01/2022 Venous) AM CDT 10:59 AM CDT Paty Goldebrg P.A.-C. LAB BLOOD NON ADD-ON Performing Organization Address City/[facility]/ZIP [facility] Phon e Number [facility] [address] [place] [phone] [address] Lactate, POCT (02/01/2022 10:31 AM CDT) athologist Signature Lactate, POCT 1.45 0.50 - 02/01/2022 PCLX 2.20 10:55 AM CDT mmol/L Sample Site, Venstick 02/01/2022 PCLX POCT 10:55 AM CDT Specimen Anatomical Collection Method Collection Time Receive d Time (Source) Location / / Volume Laterality Blood 02/01/2022 10:31 02/01/2022 AM CDT 10:55 AM CDT Unknown Provider LAB POCT ORDERABLES - DEVICE Performing Organization Address City/State/ZIP Code Phon e Number POC [facility] [address] [place] [address] PCLX [facility] [place] [address] [place] [facility] [address] [facility] (ABNORMAL) Venous Blood Gas and Electrolytes CG8+, POCT (02/01/2022 10:31 AM CDT) P athologist Signature Sample Site, Venstick 02/01/2022 PCSM POCT 10:55 AM CDT Comment: ----ADDITIONAL INFORMATION---- Performed at the Point of Care pH, Venous, POCT, B 7.47 (H) 7.32 - 7.43 02/01/2022 10:55 A M CDT PCSM Comment: ----ADDITIONAL INFORMATION---- Performed at the Point of Care pCO2, Venous, POCT, B 31 (L) 41 - 51 mm Hg 02/01/2022 10: 55 AM CDT PCSM Comment: ----ADDITIONAL INFORMATION---- Performed at the Point of Care pO2, Venous, POCT, B 44 Not Applicable mm Hg 02/02/20 10:55 AM CDT PCSM Comment: ----ADDITIONAL INFORMATION---- Performed at the Point of Care Base Excess, Venous, POCT, -1 Not Applicable mmol/L 02/01/2022 10:55 AM CDT PCSM B Comment: ----ADDITIONAL INFORMATION---- Performed at the Point of Care HCO3, Venous, POCT, B 23 Not Applicable mmol/L 2021 10:55 AM CDT PCSM Comment: ----ADDITIONAL INFORMATION---- Performed at the Point of Care Sodium, POCT, B 141 135 - 145 mmol/L 02/01/2022 10:55 AM CDT PCSM Comment: ----ADDITIONAL INFORMATION---- Performed at the Point of Care Potassium, POCT, B 3.8 3.6 - 5.2 mmol/L 02/01/2022 10: 55 AM CDT PCSM Comment: ----ADDITIONAL INFORMATION---- Performed at the Point of Care Calcium, Ionized, POCT, B 5.00 4.65 - 5.30 mg/dL 2021 10:55 AM CDT PCSM Comment: ----ADDITIONAL INFORMATION---- Performed at the Point of Care Glucose, POCT, B 133 70 - 140 mg/dL 02/01/2022 10:55 A M CDT PCSM Comment: ----ADDITIONAL INFORMATION---- Performed at the Point of Care Hematocrit, POCT, B 21.0 (L) 35.5 - 44.9 % 02/01/2022 10:55 AM CDT PCSM Comment: ----ADDITIONAL INFORMATION---- Performed at the Point of Care Specimen Anatomical Collection Method Collection Time Receive d Time (Source) Location / / Volume Laterality Blood 02/01/2022 10:31 02/01/2022 AM CDT 10:55 AM CDT Unknown Provider LAB POCT ORDERABLES - DEVICE Performing Organization Address City/State/ZIP Code Phon e Number POC [facility] [address] [place], [place] [address] [place] [address] [facility] [address] [place] [address] ECG 12 Lead (02/01/2022 10:22 AM CDT) P athologist Signature Ventricular Rate 91 BPM MUSE ECG/Min OR Interval 152 ms MUSE QRSD Interval 86 ms MUSE QT Interval 398 ms MUSE QTC Interval 489 ms MUSE P [place] -3 degrees MUSE R [place] 16 degrees MUSE T Wave [place] 5 degrees MUSE Specimen Anatomical Collection Method Collection Time Receive d Time (Source) Location / / Volume Laterality 02/01/2022 10:22 02/01/2022 AM CDT 10:34 AM CDT Impressions MUSE - 02/01/2022 10:34 AM CDT Normal sinus rhythm Prolonged QT When compared with ECG of 26-JAN-2022 05 :05, T waves have changed QT has lengthened Reviewed by STERLING García Narrative This result has an attachment that is no t available. Procedure Note Davy Lizama M.D. - 02/01/2022Fo rmatting of this note might be different from the original. IMPRESSION: Normal sinus rhythm Prolonged QT When compared with ECG of 26-JAN-2022 05 :05, T waves have changed QT has lengthened Reviewed by STERLING García Paty Goldberg P.A.-C. 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 Hepatic Encephalopathy Without Coma (HCC ) Chronic Kidney Disease (CKD), Stage 3b G lomerular Filtration Rate (GFR) 30 To 44 (HCC) Deficiency Coagulation Acquired (HCC) Deficiency Vitamin A Deficiency Vitamin D Esophageal Varices Without Bleeding (HCC ) Effusion Pleural Failure Renal Acute (Acute Kidney Injury ) (HCC) Atelectasis Splenomegaly Congestive Chronic Anxiety Disorder Unspecified Cirrhosis Alcoholic (HCC) Hypertension Portal (HCC) documented in this encounter Admitting Diagnoses Diagnosis Pain Flank documented in this encounter Administered Medications Inactive Administered Medications - up to 3 most recent administrations Medication Order MAR Action Action Date Dose Rate Site acetaminophen tablet 500 mg Given 02/03/2022 3:33 AM CDT 500 mg (TYLENOL) 500 mg, oral, Every 6 hours PRN, mild pain or score 1-3 of 10, moderate pain or score 4-6 of 10, severe pain or score 7-10 of 10, Starting on 02/01/22 at 1805 Given 02/02/2022 8:56 PM CDT 500 mg Given 02/02/2022 10:26 AM CDT 500 mg albumin human 25 % injection 25 g New Bag 02/02/2022 11:47 AM CDT 25 g 25 g, intravenous, Once, On 02/02/22 at 1100, For 1 dose, If no infusion rate specified: Administer the 25% solution at 100 mL/hr qqbmceculirll-nmhzeupimd-wfkcgcpg in Lipoderm Given 02/03/2022 8 :54 AM CDT 1 g 2%-5%-5% cream 1 g 1 g, topical, 2 times daily, First dose on 02/01/22 at 2100 Given 02/02/2022 8:57 PM CDT 1 g Given 02/01/2022 8:40 PM CDT 1 g cholecalciferol (vitamin D3) tablet 25 m cg Given 02/03/2022 8:55 AM CDT 25 mcg 25 mcg, oral, Daily, First dose on Wed02/02/22 at 0900, cholecalciferol (vitamin D3) orderable was interchanged for cholecalciferol (vitamin D3) tablet/capsule Given 02/02/2022 10:26 AM CDT 25 mcg ciprofloxacin tablet 500 mg (CIPRO) Given 02/03/2022 8:55 AM CDT 500 mg 500 mg, oral, Daily before breakfast, First dose on Wed02/02/22 at 0700, Take 2 hours before or 6 hours after antacids containing magnesium or aluminum, sucralfate, didanosine, polymeric phosphate binders, or products containing calcium, iron, or zinc., Drug Monitoring Program: Pharmacist to adjust medication dosing based on indication and drug clearance factors., Indications: Prophylaxis, medical Given 02/02/2022 6:24 AM CDT 500 mg cyclobenzaprine tablet 5 mg (FLEXERIL) Given 02/02/2022 7:48 AM CDT 5 mg 5 mg, oral, Daily PRN, muscle spasms, Starting on 02/01/22 at 1724 Given 02/01/2022 7:03 PM CDT 5 mg cyclobenzaprine tablet 5 mg (FLEXERIL) Given 02/03/2022 4:12 PM CDT 5 mg 5 mg, oral, 2 times daily PRN, muscle spasms, Starting on 02/02/22 at 1000 Given 02/03/2022 5:24 AM CDT 5 mg Given 02/02/2022 11:59 PM CDT 5 mg diclofenac sodium 1 % gel 2 g (VOLTAREN) Given 02/03/2022 8:58 AM CDT 2 g 2 g, topical, 4 times daily, First dose on 02/01/22 at 2100, Do not exceed 32 g per day, over all affected joints. Use dosing card to measure product. 2 g = 2.25 inches, 4 gm = 4.5 inches. Rinse dosing card after use and save for each administration. Given 02/02/2022 8:57 PM CDT 2 g Given 02/02/2022 7:49 AM CDT 2 g fentaNYL injection 50 mcg (SUBLIMAZE) Given 02/01/2022 1:35 PM CDT 50 mcg 50 mcg, intravenous, Every 15 min PRN, severe pain or score 7-10 of 10, Starting on Wed02/01/22 at 1114, For 3 doses Given 02/01/2022 12:51 PM CDT 50 mcg Given 02/01/2022 11:25 AM CDT 50 mcg fentaNYL injection 50 mcg (SUBLIMAZE) Given 02/01/2022 3:53 PM CDT 50 mcg 50 mcg, intravenous, Every 15 min PRN, severe pain or score 7-10 of 10, Starting on Wed02/01/22 at 1448, For 3 doses folic acid tablet 1,000 mcg Given 02/03/2022 8:55 AM CDT 1,000 mcg 1,000 mcg, oral, Daily, First dose on Wed02/02/22 at 0900 Given 02/02/2022 10:26 AM CDT 1,000 mcg furosemide injection 10 mg (LASIX) Given 02/01/2022 7:03 PM CDT 10 mg 10 mg, intravenous, Once, On Wed02/01/22 at 1830, For 1 dose, Adults: Doses less than 120 mg: IV push over 20 mg/minute. Doses 120 mg or greater: IVPB at 4 mg/minute. Peds/Neonates: Doses less than 120 mg over 0.5 mg/kg/minute. Doses 120 mg or greater: IVPB at 4 mg/minute. furosemide tablet 40 mg (LASIX) Given 02/03/2022 8:56 AM CDT 40 mg 40 mg, oral, Daily, First dose (after last modification) on Wed02/02/22 at 0900 Given 02/02/2022 10:25 AM CDT 40 mg heparin (porcine) Given 02/02/2022 8:58 PM CDT 5,000 Units Left Upper Arm injection 5,000 Units (Back) 5,000 Units, subcutaneous, Every 8 hours scheduled, First dose on Wed02/01/22 at 2200 Given 02/02/2022 6:25 AM CDT 5,000 Units Left Lower Abdomen iohexoL 350 mg iodine/mL solution 1-200 mL Given 02/01/2022 2:29 PM CDT 100 mL (OMNIPAQUE) 1-200 mL, intravenous, Once in imaging, contrast, Starting on Wed02/01/22 at 1425, For 1 dose, Imaging Protocol Orders, Dose per Radiant Medication Guidelines lactulose solution 10 g (CHRONULAC) Given 02/03/2022 12:53 PM CDT 10 g 10 g, oral, 4 times daily, First dose (after last modification) on Wed02/01/22 at 2100 Given 02/03/2022 8:54 AM CDT 10 g Given 02/02/2022 11:48 AM CDT 10 g lidocaine 10 mg/mL (1 %) injection Given 02/02/2022 9:06 7 mL Abdominal (XYLOCAINE) AM CDT Tissue Code/trauma/sedation medication, Starting on Wed02/02/22 at 0906 lidocaine 5 % 1 patch Medication Applied 02/03/2022 9:15 AM CDT 1 pat ch Other (LIDODERM) 1 patch, transdermal, Administer over 12 Hours, Daily, First dose on Wed02/02/22 at 0900, Remove after 12 hours. magnesium oxide tablet 400 mg (MAG-OX) Given 02/03/2022 4:18 PM CDT 400 mg 400 mg, oral, 2 times daily before breakfast and dinner, First dose on Wed02/02/22 at 0700 Given 02/03/2022 9:01 AM CDT 400 mg Given 02/02/2022 6:25 AM CDT 400 mg cegmssxqgjhx-nzte-CE-Ca-minerals 400 mcg Given 02/03/2022 8:55 A M CDT 1 tablet (folic acid) tablet 1 tablet (THERAPEUTI C-M) 1 tablet, oral, Daily, First dose on Wed02/02/22 at 0900 Given 02/02/2022 10:25 AM CDT 1 tablet ondansetron (PF) injection 4 mg (ZOFRAN) Given 02/01/2022 10:14 PM CDT 4 mg 4 mg, intravenous, Once, On Wed02/01/22 at 2215, For 1 dose oxyCODONE IR tablet 5 mg (ROXICODONE) Given 02/01/2022 11:55 PM CDT 5 mg 5 mg, oral, Once, On 02/01/22 at 2345, For [address] tablet 40 mg (PROTONIX) Given 02/03/2022 8:55 AM CDT 40 mg 40 mg, oral, Daily before breakfast, First dose on Wed02/02/22 at 0700, Swallow whole. Do NOT crush, chew, or split tablet. Given 02/02/2022 6:24 AM CDT 40 mg prochlorperazine tablet 5 mg (COMPAZINE) Given 02/03/2022 9:07 AM CDT 5 mg 5 mg, oral, Every 6 hours PRN, nausea, vomiting, Starting on Wed02/02/22 at 1255 Given 02/02/2022 1:57 PM CDT 5 mg rifAXIMin tablet 550 mg (XIFAXAN) Given 02/03/2022 8:55 AM CDT 550 mg 550 mg, oral, 2 times daily, First dose on Wed02/01/22 at 2100, Indications: hepatic encephalopathy Given 02/02/2022 8:55 PM CDT 550 mg Given 02/02/2022 10:25 AM CDT 550 mg sodium chloride (PF) 0.9 % injection 1-1 00 mL Given 02/01/2022 2:29 PM CDT 30 mL 1-100 mL, intravenous, Once, On Wed02/01/22 at 1426, For 1 dose, Imaging Protocol Orders spironolactone tablet 100 mg (ALDACTONE) Given 02/03/2022 8:54 AM CDT 100 mg 100 mg, oral, Daily, First dose (after last modification) on Wed02/02/22 at 0900 Given 02/02/2022 10:26 AM CDT 100 mg spironolactone tablet 50 mg (ALDACTONE) Given 02/01/2022 7:03 PM CDT 50 mg 50 mg, oral, Once, On 02/01/22 at 1830, For 1 dose thiamine tablet 100 mg (VITAMIN B1) Given 02/03/2022 8:56 AM CDT 100 mg 100 mg, oral, Daily, First dose on Wed02/02/22 at 0900 Given 02/02/2022 10:25 AM CDT 100 mg traZODone tablet 50 mg (DESYREL) Given 02/02/2022 8:55 PM CDT 50 mg 50 mg, oral, Daily at bedtime, First dose on 02/01/22 at 2100 Given 02/01/2022 10:16 PM CDT 50 mg vitamin A capsule 3,000 mcg Given 02/02/2022 9:00 AM CDT 3,000 mcg 3,000 mcg, oral, 3 times weekly (Once per day on Wed), First dose on Wed02/02/22 at 0900, Vitamin A (retinol): Units x 0.3 = mcg; 10,000 Units = 3,000 mcg Vitamin A (Supplemental Beta-carotene): Units x 0.3 = mcg Vitamin A (Dietary Beta-carotene): Units x 0.05 = mcg zinc sulfate capsule 220 mg (ZINCATE) Given 02/03/2022 8:55 AM CDT 220 mg 220 mg, oral, Daily with breakfast, First dose on Wed02/02/22 at 0800, Doses listed in zinc sulfate. Each 220 mg of zinc sulfate contains 50 mg of elemental zinc. Given 02/02/2022 10:26 AM CDT 220 mg documented in this encounter Active and Recently Administered Medications Times are shown in CDT. Scheduled Medication Order 02/01/2022 02/02/2022 02/03/2022 albumin human 25 % injection 25 g (COMPLETED) 1147 (New Bag - Provider: Nabila Traore R.N.) 25 g, intravenous, Once, On Wed02/02/22 at 1100, For 1 dose, If no infusion rate specified: Administer the 25% solution at 100 mL/hr miwxayzhvaxpj-dyivvbzxul-lhrlwvzy in Lipoderm 2%-5%-5% cream 1 g 2039 (Given - Provider: Elena Worthington R.N.) 1051 (Not Given - Provider: Nabila perry R.N. - Reason: Patient/family refused)2056 (Given - Provider: Criselda Marley R.N.) 0854 (Given - Provider: Suleman Rivas R.N.) 1 g, topical, 2 times daily, First dose on 02/01/22 at 2100 cholecalciferol (vitamin D3) tablet 25 mcg 1026 (Given - Provider: Andrew FariasN.) 0855 (Given - Provider: Suleman Rivas R.N.) 25 mcg, oral, Daily, First dose on Wed at 0900, cholecalciferol (vitamin D3) orderable was interchanged for cholecalciferol (vitamin D3) tablet/capsule ciprofloxacin tablet 500 mg (CIPRO) 0624 (Given - Provider: Harish Massey R.N.) 0855 (Given - Provider: Suleman Rivas R.N.) 500 mg, oral, Daily before breakfast, Fi rst dose on Wed02/02/22 at 0700, Take 2 hours before or 6 hours after antacids containing magnesium or aluminum, sucralfate, didanosine, polymeric phosphate binde rs, or products containing calcium, iron , or zinc., Drug Monitoring Program: Pharmacist to adjust medication dosing based on indication and drug clearance factors., Indications: Prophylaxis, medical diclofenac sodium 1 % gel 2 g (VOLTAREN) 2038 (Given - Provider: Elena Worthington R.N.) 0749 (Given - Provider: Nabila arauz RSumaNSuma)1148 (Not Given - Provider: Nabila Traore R.N. - Reason: Patient/family refused)1712 (Not Given - Provider: Nabila Traore R.N. - Reason: Patient/family refused) 0858 (Given - Provider: Suleman Rivas R.N.)1255 (Not Given - Provider: Nabila Traore R.N. - Reason: Patient/family refused)1615 (Not Given - Provider: Nabila Traore R.N. - Reason: Patient/family refused) 2 g, topical, 4 times daily, First dose on Wed02/01/22 at 2100, Do not exceed 32 g per day, over all affected joints. Use dosing card to measure product. 2 g = 2.25 inches, 4 gm = 4.5 inches. Rinse dosi 2056 (Given - Provider: Criselda Marley R.N.) ng card after use and save for each administration. folic acid tablet 1,000 mcg 1026 (Given - Provid er: Nabila Traore R.N.) 0855 (Given - Provider: Suleman Rivas R.N.) 1,000 mcg, oral, Daily, First dose on Wed02/02/22 at 0900 furosemide injection 10 mg (LASIX) (COMPLETED) 1903 (G iven - Provider: Elena Worthington R.N.) 10 mg, intravenous, Once, On Wed02/01/22 at 1830, For 1 dose, Adults: Doses less than 120 mg: IV push over 20 mg/minute. Doses 120 mg or greater: IVPB at 4 mg/minute. Peds/Neonates: Doses less than 120 mg over 0.5 mg/kg/minute. Doses 120 mg or greater: IVPB at 4 mg/ minute. furosemide tablet 40 mg (LASIX) 1025 (Gi ekaterina - Provider: Nabila Traore R.N.) 0856 (Given - Provider: Suleman Rivas R.N.) 40 mg, oral, Daily, First dose (after last modificatio n) on Wed02/02/22 at 0900 heparin (porcine) injection 5,000 Units 2111 (Not Give n - Provider: Elena Worthington R.N. - Reason: Patient/family refused) 0625 (Given - Provider: Harish Massey RSumaNSuma)1345 (Not Given - Provider: Nabila Traore R.N. - Reason: Other - Comment: paracentesis this am)2057 (Given - Provider: Criselda Marley R.N.) 0525 (Not Given - Provider: Criselda mejia R.NSuma - Reason: Patient/family refused)1324 (Not Given - Provider: Nabila Traore R.N. - Reason: Patient/family refused) 5,000 Units, subcutaneous, Every 8 hours scheduled, First dose on Wed02/01/22 at 2200 lactulose solution 10 g (CHRONULAC) 2038 (Given - Prov ider: Elena Worthington R.N.) 1031 (Given - Provider: Nabila arauz RSumaNSuma)1148 (Given - Provider: Nabila Traore R.N.)1712 (Not Given - Provider: Nabila Traore R.N. - Reason: Order parameters not met) 0854 (Given - Provider: Suleman Rivas R.N.)1253 (Given - Provider: Nabila Traore R.N.)1614 (Not Given - Provider: Nabila Traore R.N. - Reason: Order parameters not met - Comment: bm goal achieved) 10 g, oral, 4 times daily, First dose (a fter last modification) on Wed02/01/22 at 2100 2056 (Not Given - Provider: Criselda Marley R.N. - Reason: Patient/family refused) lidocaine 5 % 1 patch (LIDODERM) 1026 (N ot Given - Provider: Nabila Traore R.N. - Reason: Patient/family refused) 0915 (Medication Applied - Provider: Suleman Rivas R.N. - Comment: half on each flank)1808 (Due: Medication Removed - Provider: Discharge Provider, Automatic - Comment: Time automatically adjusted from order being discontinued) 1 patch, transdermal, Administer over 12 Hours, Daily, First dose on Wed02/02/22 at 0900, Remove after 12 hours. magnesium oxide tablet 400 mg (MAG-OX) 0 625 (Given - Provider: Harish Massey R.N.)1753 (Not Given - Provider: Nabila Traore R.N. - Reason: Patient/family refused) 0901 (Given - Provider: Suleman Rivas R.N.)1618 (Given - Provider: Nabila Traore R.N.) 400 mg, oral, 2 times daily before break fast and dinner, First dose on Wed02/02/22 at 0700 huqxfqesxklf-chxb-PI-Ca-minerals 400 mcg (folic acid) tablet 1 tablet (THERAPEUTIC-M) 1025 (Given - Provider: Nabila arauz R.N.) 0855 (Given - Provider: Suleman Rivas R.N.) 1 tablet, oral, Daily, First dose on Wed02/02/22 at 0900 ondansetron (PF) injection 4 mg (ZOFRAN) (COMPLETED) 2 214 (Given - Provider: Elena Worthington R.N.) 4 mg, intravenous, Once, On Wed02/01/22 at 2215, For 1 dose oxyCODONE IR tablet 5 mg (ROXICODONE) (COMPLETED) 2355 (Given - Provider: Harish Massey RGabby) 5 mg, oral, Once, On Wed02/01/22 at 2345, For [address] tablet 40 mg (PROTONIX) 0624 (Given - Provider: Harish Massey R.N.) 0855 (Given - Provider: Suleman Rivas R.N.) 40 mg, oral, Daily before breakfast, Fir st dose on Wed02/02/22 at 0700, Swallow whole. Do NOT crush, chew, or split tablet. rifAXIMin tablet 550 mg (XIFAXAN) 2108 (Given - Provider: Francoise Worthington R.N.) 102 (Given - Provider: Nabila Traore R.N.)2054 (Given - Provider: Criselda Marley R.N.) 0855 (Given - Provider: Suleman Rivas R.N.) 550 mg, oral, 2 times daily, First dose on Wed02/01/22 at 2100, Indications: hepatic encephalopathy sodium chloride (PF) 0.9 % injection 1-100 mL (COMPLET ED) 1429 (Given - Provider: David Johnston RGabby) 1-100 mL, intravenous, Once, On 02/01 at 1426, For 1 dose, Imaging Protocol Orders spironolactone tablet 100 mg (ALDACTONE) 1026 (Given - Provider: Nabila Traore R.N.) 0854 (Given - Provider: Suleman Rivas R.N.) 100 mg, oral, Daily, First dose (after l ast modification) on Wed02/02/22 at 0900 spironolactone tablet 50 mg (ALDACTONE) (COMPLETED) 19 07 (Given - Provider: Elena Worthington R.N.) 50 mg, oral, Once, On 02/01/22 at 1830, For 1 dose thiamine tablet 100 mg (VITAMIN B1) 1025 (Given - Provider: Nabila Traore R.N.) 0856 (Given - Provider: Suleman Rivas R.N.) 100 mg, oral, Daily, First dose on Wed02/02/22 at 0900 traZODone tablet 50 mg (DESYREL) 2215 (Given - Provider: Tomi Worthington R.N.) 2054 (Given - Provider: Criselda Marley R.N.) 50 mg, oral, Daily at bedtime, First dose on 02/01/22 at 2100 vitamin A capsule 3,000 mcg 0900 (Given - Provid er: Nabila Traore R.N.) 3,000 mcg, oral, 3 times weekly (Once pe day on Wed), First dose on Wed02/02/22 at 0900, Vitamin A (retinol): Units x 0.3 = mcg; 10,000 Units = 3,000 mcg Vitamin A (Supplemental Beta-carotene): Units x 0.3 = mcg Vitamin A (Dietary Beta-carotene): Units x 0. 05 = mcg zinc sulfate capsule 220 mg (ZINCATE) 10 26 (Given - Provider: Nabila Traore R.N.) 0855 (Given - Provider: Suleman Rivas R.N.) 220 mg, oral, Daily with breakfast, Firs t dose on Wed02/02/22 at 0800, Doses listed in zinc sulfate. Each 220 mg of zinc sulfate contains 50 mg of elemental zinc. PRN Medication Order 02/01/2022 02/02/2022 02/03/2022 acetaminophen tablet 500 mg (TYLENOL) 183 (Given - Pr ovider: Mel Teresa RGabby) 005 (Given - Provider: Harish Massey R.N.)102 (Given - Provider: Nabila Traore R.N.)2055 (Given - Provider: Criselda Marley R.N.) 033 (Given - Provider: Criselda Marley R.N.) 500 mg, oral, Every 6 hours PRN, mild pa in or score 1-3 of 10, moderate pain or score 4-6 of 10, severe pain or score 7-10 of 10, Starting on Wed02/01/22 at 1805 cyclobenzaprine tablet 5 mg (FLEXERIL) (CANCELED) 1903 (Given - Provider: Elena Worthington R.N.) 0748 (Given - Provider: Nabila Traore R.N.) 5 mg, oral, Daily PRN, muscle spasms, Starting on Wed02/01/22 at 1724 cyclobenzaprine tablet 5 mg (FLEXERIL) 1 326 (Given - Provider: Nabila Traore R.N.)2359 (Given - Provider: Criselda Marley R.N.) 0524 (Given - Provider: Criselda Marley R.N.)1612 (Given - Provider: Nabila Traore R.N.) 5 mg, oral, 2 times daily PRN, muscle spasms, Starting on Wed at 1000 fentaNYL injection 50 mcg (SUBLIMAZE) (COMPLETED) 1125 (Given - Provider: Ciara Morgan R.N.)1251 (Given - Provider: Andrew RoachN.)1335 (Given - Provider: Andrew RoachN.) 50 mcg, intravenous, Every 15 min PRN, s evere pain or score 7-10 of 10, Starting on Wed02/01/22 at 1114, For 3 doses fentaNYL injection 50 mcg (SUBLIMAZE) (CANCELED) 1553 (Given - Provider: Ciara Morgan, R.NSuma) 50 mcg, intravenous, Every 15 min PRN, s evere pain or score 7-10 of 10, Starting on Wed02/01/22 at 1448, For 3 doses iohexoL 350 mg iodine/mL solution 1-200 mL (OMNIPAQUE) (COMPLETED) 1429 (Given - Provider: David Johnston RSumaNSuma) 1-200 mL, intravenous, Once in imaging, contrast, Starting on Wed02/01/22 at 1425, For 1 dose, Imaging Protocol Orders, Dose per Radiant Medication Guidelines lidocaine 10 mg/mL (1 %) injection (XYLOCAINE) (COMPLETED) 09 (Given - Provider: Marialuisa Boogie M.D. - Comment: abdominal right) Code/trauma/sedation medication, Starting on Wed02/02/22 at 0906 prochlorperazine tablet 5 mg (COMPAZINE) 1357 (Given - Provider: Nabila Traore RGabby) 0907 (Given - Provider: Suleman Rivas R.N.) 5 mg, oral, Every 6 hours PRN, nausea, v omiting, Starting on Wed02/02/22 at 1255 documented in this encounter Additional Health Concerns Assessment Noted Time PHQ-9 Depression Total Score: 10 10/06/2021 5:00 PM CD T documented as of this encounter Care Teams Steel Inspector Relationship Specialty Start Date End Date Ana Red P.A.-C. PCP - General Internal Medicine 12/01/[address] [place] [phone] [facility]- [place] lab 08/25/21 Ervin Schroeder MD Referring Provider Family Medicine 03/24/[address] [place] [address] [phone] documented as of this encounter
--- OUTSIDE RECORDS SUMMARY | 2022-02-04 23:06 | XMS_ITS | Encounter Summary ---
:1990 Author Organization [facility] Address [address] [place] [address] Care Team Providers Name Role Phone Ana Red P.A.-C. Primary Care Provider [phone] Reason for Visit Reason Comments Post Hospital Follow-up [facility] Encounter Details Date Type Department Care Team Description 02/04/2022 Clinical Communication Department of [facility] Internal Myrtle Govea Follow-up ([facility] in [address]) [address] [address] [facility] [place] [phone] (Work) [phone] Social History Tobacco Use Types Packs/Day Years [...] do you attend gnosticism or Never 2021 roman catholic services? Do you belong to any clubs or No 07/17/2021 organizations such as gnosticism groups, unions, fraTunePatrol or athletic groups, or school groups? 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 - 02/04/2022 3:36 PM CDT SUBJECTIVE REASON FOR CALL Post-Hospital follow-up phone call with patient. Admission Date: 02/01/22 Discharge Date: 02/03/22 Discharge Diagnosis: Hepatic Failure unspecified without Coma 2nd Attempt - Voicemail left 02/04/22 @1531 Left message for patient to return call to clinic. Does the patient need to speak to nursing? yes Action needed: Transfer to Care Team RN for post hospital Telephone Encounter - Nighat Dickson R.N. - 02/04/2022 10:18 AM CDT SUBJECTIVE REASON FOR CALL Post-Hospital follow-up phone call with patient. Admission Date: 02/01/22 Discharge Date: 02/03/22 Discharge Diagnosis: Hepatic Failure unspecified without coma 1st Attempt - Voicemail left 02/04/22 @1019 Left message for patient to return call to clinic. Does the patient need to speak to nursing? yes Action needed: Transfer to Care Team RN for post hospital follow up Telephone Encounter - Xuan Malcolm R.N. - 02/04/2022 8:03 AM CDT Catia Carias is not eligible for the Adult Medical Care Coordination Program and needs the [facility] call to be completed. Patient was dismissed from the [facility] on 02/03/22 at 1808. [facility] Exclusion Criteria: Liver Transplant recipient (actively following with transplant team pre-transplant) documented in this encounter Plan of Treatment Upcoming Encounters Date Type Specialty Care Team Description [facility] Radiology Dcusa, Matthew 2 Encounter Tyrell Rodriguez M.D. [address] [place] [phone] Hospital Gastroenterology and Mousa, Matthew 2 Encounter Hepatology Tyrell Rodriguez M.D. [address] [place] [phone] Surgery Gastroenterology and Mousa, Matthew ESOPHAG OGASTRODUODENOSCOPY 2 Hepatology Tyrell Rodriguez M.D. [address] [place] [phone] Telemedicine Transplant 2 Lab Laboratory Medicine Olinda Frazier M.D., Ph.D. [address] [place] [phone] Lab Laboratory Medicine Karin, 2 Adeline Gannon M.D., Ph.D. [address] [place] [phone] Office Visit Transplant Karin, 2 Adeline Gannon M.D., Ph.D. [address] [place] [phone] Office Visit [facility] [place], 2 Medicine Vernell Perez [address] [place] [phone] Appointment Radiology Matthew Jerome 2 Y M.B.B.SLilian Moise [address] [place] [phone] Appointment Gastroenterology and Adrianne, 2 Hepatology Yue Burciaga M.D. [address] [place] [phone] Office Visit Gastroenterology and Matthew Jerome 2 Hepatology Jennifer M.B.B.SLilian Moise [address] [place] [phone] Appointment Radiology Matthew Jerome 2 Y M.B.B.SLilian Moise [address] [place] [phone] Scheduled Procedures Name Priority Associated Diagnoses Date/Time ESOPHAGOGASTRODUODENOSCOPY Cirrhosis Alc oholic (HCC) 02/10/2022 8:45 AM CDT Hypertension Portal (HCC) documented as of this encounter Visit Diagnoses Not on filedocumented in this encounter Additional Health Concerns Assessment Noted Time PHQ-9 Depression Total Score: 10/06/2021 5:00 PM CD T documented as of this encounter Care Teams Physical Security Manager Relationship Specialty Start Date End Date Ana Red P.A.-C. PCP - General Internal Medicine 12/01/[address] [place] [address] [place] [phone] [facility]- [place] lab 08/25/21 Ervin Schroeder MD Referring Provider Family Medicine 03/24/[address] [place] [address] ADI Mejía [phone] documented as of this encounter
--- OUTSIDE RECORDS SUMMARY | 2022-02-04 23:06 | XMS_ITS | Encounter Summary ---
:1990 Author Organization [facility] Address [address] [place] [address] Care Team Providers Name Role Phone Ana Red SumaASumaC. Primary Care Provider [phone] Encounter Details Date Type Department Care Team Description 02/02/2022 Orders Only Department of [facility] Ana Red , [place] Medicine [place] 300 [facility] 300 [facility] [place] [phone] (Wo rk) Social History Tobacco [...] do you attend anabaptist or Never 2021 jew services? 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 [address] [place] [phone] Hospital Gastroenterology and Matthew Jerome 2 Encounter Hepatology Tyrell Rodriguez M.D. [address] [place] [phone] Surgery Gastroenterology and Queenie Matthew ESOPHAG OGASTRODUODENOSCOPY 2 Hepatology Vik RodriguezBLilian Bedolla [address] [place] [phone] Telemedicine Transplant 2 Lab Laboratory Medicine Karin, 2 Adeline Gannon M.D., Ph.D. [address] [place] [phone] Lab Laboratory Medicine Karin, 2 Adeline Gannon M.D., Ph.D. [address] [place] [phone] Office Visit Transplant Karin, 2 Adeline Gannon M.D., Ph.D. [address] [place] [phone] Office Visit Community Internal [place], 2 Medicine Farida Perez-C. [address] [place] [phone] Appointment Radiology Matthew Jerome 2 Joshua RodriguezBSumaBLilian Bedolla [address] [place] [phone] Appointment Gastroenterology and Adrianne, 2 Hepatology Yue Burciaga M.D. [address] [place] [phone] Office Visit Gastroenterology and Matthew Jerome 2 Hepatology Joshua RodriguezBSumaBLilian Bedolla [address] [place] [phone] Appointment Radiology Matthew Jerome 2 YTyrell M.D. [address] [place] [phone] Scheduled Procedures Name Priority Associated Diagnoses Date/Time ESOPHAGOGASTRODUODENOSCOPY Cirrhosis Alc oholic (HCC) 02/10/2022 8:45 AM CDT Hypertension Portal (HCC) documented as of this encounter Visit Diagnoses Not on filedocumented in this encounter Additional Health Concerns Assessment Noted Time PHQ-9 Depression Total Score: 10/06/2021 5:00 PM CD T documented as of this encounter Care Teams Senior Physician Relationship Specialty Start Date End Date Ana Red P.A.-C. PCP - General Internal Medicine 12/01/[address] [place] [phone] [facility]- [place] lab 08/25/21 Ervin Schroeder MD Referring Provider Family Medicine 03/24/[address] [place] [phone] documented as of this encounter
--- OUTSIDE RECORDS SUMMARY | 2022-02-04 23:06 | XMS_ITS | Encounter Summary ---
:1990 Author Organization [facility] Address [address] [place] [address] Care Team Providers Name Role Phone Ana Red P.A.-C. Primary Care Provider [phone] Encounter Details Date Type Department Care Team Description 02/02/2022 Clinical Communication Department of [facility] [place] Perez Medicine in [address] [address] [place], [place] [phone] (Work) [phone] Social History Tobacco Use Types Packs/Day Years [...] do you attend mormon or Never 2021 congregation services? 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 - 02/02/2022 4:54 PM CDT Noted. Telephone Encounter - Kimberly López - 02/02/2022 2:28 PM CDT Patient called back again regarding this message. She cannot leave the hospital until this is refilled because she has no medication at home and is in great pain. She would like to have this done FRANCESCA.And she would like a call back from nursing letting her know when Ana has ordered it. [phone] Telephone Encounter - Paty Stevens - 02/02/2022 10:39 AM CDT Reason for Communication: Patients calling in and stated that she is in [facility] and is needing the provider to fill her script for Flexeril. Patient was told that she can take it up to 3 times a day. Patient is asking for a nurse to call her back. Please advise. Current Can Nursing/Provider leave a detailed message?: yes Did the patient refuse triage through Nurse line? (for symptom based concerns): na Action Needed: Please advise. Name of Medication (if relevant): Flexeril Please send all scheduling replies to scheduling pool. documented in this encounter Plan of Treatment Upcoming Encounters Date Type Specialty Care Team Description [facility] Radiology Msusa, Matthew 2 Encounter Tyrell Rodriguez M.D. [address] [place] [phone] [facility] Gastroenterology and Mousa, Matthew 2 Encounter Hepatology Tyrell Rodriguez M.D. [address] [place] [phone] Surgery Gastroenterology and Msusa, Matthew ESOPHAG OGASTRODUODENOSCOPY 2 Hepatology Tyrell Rodriguez M.D. [address] [place] [phone] Telemedicine Transplant 2 Lab Laboratory Medicine Karin, 2 Adeline Gannon M.D., Ph.D. [address] [place] [phone] Lab Laboratory Medicine Olinda Frazier M.D., Ph.D. [address] [place] [phone] Office Visit Transplant Olinda Frazier M.D., Ph.D. [address] [place] [phone] Office Visit Community Internal [facility], 2 Medicine Vernell Perez [address] [place] [phone] Appointment Radiology Matthew Jerome 2 YVikBLilian Bedolla [address] [place] [phone] Appointment Gastroenterology and Adrianne, 2 Hepatology Yue Burciaga M.D. [address] [place] [phone] Office Visit Gastroenterology and Matthew Jerome 2 Hepatology Vik RodriguezBLilian Bedolla [address] [place] [phone] Appointment Radiology Matthew Jerome 2 YVikB.SLilian Moise [address] [place] [phone] Scheduled Procedures Name Priority Associated Diagnoses Date/Time ESOPHAGOGASTRODUODENOSCOPY Cirrhosis Alc oholic (HCC) 02/10/2022 8:45 AM CDT Hypertension Portal (HCC) documented as of this encounter Visit Diagnoses Not on filedocumented in this encounter Additional Health Concerns Assessment Noted Time PHQ-9 Depression Total Score: 10 10/06/2021 5:00 PM CD T documented as of this encounter Care Teams Mill Operator Head Relationship Specialty Start Date End Date Ana Red P.A.-C. PCP - General Internal Medicine 12/01/[address] [place] [phone] [facility]- [place] lab 08/25/21 Ervin Schroeder MD Referring Provider Family Medicine 03/24/[address] [place] [phone] documented as of this encounter
--- OUTSIDE RECORDS SUMMARY | 2022-02-04 23:06 | XMS_ITS | Encounter Summary ---
:1990 Author Organization [facility] Address [address] [place] [phone] Care Team Providers Name Role Phone Ana Red P.A.-C. Primary Care Provider [phone] Encounter Details Date Type Department Care Team Description 02/04/2022 Orders Only RST HIM Sara Gracia R, [address] [place] [phone] [place] [phone] (Wo rk) Social History Tobacco Use Types [...] do you attend confucianism or Never 2021 taoism services? Do you belong to any clubs or No 07/17/2021 organizations such as confucianism groups, unions, [employer] or athletic groups, or school groups? 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 [address] [place] [address] [phone] Hospital Gastroenterology and Queenie Matthew 2 Encounter Hepatology Tyrell Rodriguez M.D. [address] [place] [address] [phone] Surgery Gastroenterology and Queenie Matthew ESOPHAG OGASTRODUODENOSCOPY 2 Hepatology Tyrell Rodriguez M.D. [address] [place] [address] [phone] Telemedicine Transplant 2 Lab Laboratory Medicine Olinda Frazier M.D., Ph.D. [address] [place] [phone] Lab Laboratory Medicine Olinda Frazier M.D., Ph.D. [address] [place] [phone] Office Visit Transplant Karin, Olinda Gannon M.D., Ph.D. [address] [place] [phone] Office Visit Community Internal Deanovic, 2 Medicine Carlotta PerezCSuma [address] [place] [phone] Appointment Radiology Matthew Jerome 2 Y, M.B.B.SSuma, Lilian [address] [place] [phone] Appointment Gastroenterology and Adrianne, 2 Hepatology Yue Burciaga M.D. [address] [place] [phone] Office Visit Gastroenterology and Matthew Jerome 2 Hepatology Jennifer M.B.B.SLilian Moise [address] [place] [phone] Appointment Radiology Matthew Jerome 2 Y M.B.B.SLilian Moise [address] [place] [address], [place] [phone] Scheduled Procedures Name Priority Associated Diagnoses Date/Time ESOPHAGOGASTRODUODENOSCOPY Cirrhosis Alc oholic (HCC) 02/10/2022 8:45 AM CDT Hypertension Portal (HCC) documented as of this encounter Visit Diagnoses Not on filedocumented in this encounter Additional Health Concerns Assessment Noted Time PHQ-9 Depression Total Score: 10/06/2021 5:00 PM CD T documented as of this encounter Care Teams Thread Clipper Relationship Specialty Start Date End Date Ana Red P.A.-C. PCP - General Internal Medicine 12/01/[address] [place] [phone] [facility] [place] lab 08/25/21 Ervin Schroeder MD Referring Provider Family Medicine 03/24/[address] [place] [phone] documented as of this encounter
--- OUTSIDE RECORDS SUMMARY | 2022-02-04 23:06 | XMS_ITS | Encounter Summary ---
:1990 Author Organization [facility] Address [address] [place] [address] Care Team Providers Name Role Phone Ana Red P.A.-C. Primary Care Provider [phone] Encounter Details Date Type Department Care Team Description 02/03/2022 Clinical Communication [facility] Matthew Y, Gastroenterology in M.BJhoan, Joshua Kruger. 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 The order notes state Per Queenie wantwhiteny to see in March pt seeing [place] in January. Oncology Specialist stated this to patient and she stated that nobody had called her to tell her the appointment had moved, however, Oncology Specialist stated that our scheduling team in [place] does not change appointments without contacting the patient affected. Patient insisted she was never contacted and became very agitated. Oncology Specialist stated that a message would be sent to inquire about more thought behind why the appointment was pushed out. Patient thought that the process for a liver transplant was also being pushed out because she wasn't seeing a specialist. Please advise on more insight as to the reason for seeing the patient in March rather than 01/28 or mid January. Patient stated that if she doesn't answer the phone, it is okay to leave a detailed voice message. Thank you. documented in this encounter Plan of Treatment Upcoming Encounters Date Type Specialty Care Team Description Hospital Radiology [facility] 2 Encounter Tyrell Rodriguez M.D. [address] [place] [address] [phone] [facility] Gastroenterology and [facility] 2 Encounter Hepatology Tyrell Rodriguez M.D. [address] [place] [address] [phone] Surgery Gastroenterology and [facility] ESOPHAG OGASTRODUODENOSCOPY 2 Hepatology Tyrell Rodriguez, Lilian [address] [place] [address] [phone] Telemedicine Transplant 2 Lab Laboratory Medicine Karin, Olinda Gannon M.D., Ph.D. [address] [place] [phone] Lab Laboratory Medicine Olinda Frazier M.D., Ph.D. [address] [place] [phone] Office Visit Transplant Olinda Frazier M.D., Ph.D. [address] [place] [phone] Office Visit Community Internal Neda, 2 Medicine Vernell Perez [address] [place] [phone] Appointment Radiology Matthew Jerome 2 YJoshuaB.BLilian Bedolla [address] [place] [phone] Appointment Gastroenterology and Adrianne, 2 Hepatology Yue Burciaga M.D. [address] [place] [phone] Office Visit Gastroenterology and Matthew Jerome 2 Hepatology Joshua RodriguezB.BLilian Bedolla [address] [place] [phone] Appointment Radiology Matthew Jerome 2 YJoshuaB.B.SLilian Moise [address] [place] [phone] Scheduled Procedures Name Priority Associated Diagnoses Date/Time ESOPHAGOGASTRODUODENOSCOPY Cirrhosis Alc oholic (HCC) 02/10/2022 8:45 AM CDT Hypertension Portal (HCC) documented as of this encounter Visit Diagnoses Not on filedocumented in this encounter Additional Health Concerns Assessment Noted Time PHQ-9 Depression Total Score: 10 10/06/2021 5:00 PM CD T documented as of this encounter Care Teams Home Attendant Relationship Specialty Start Date End Date Ana Red P.A.-C. PCP - General Internal Medicine 12/01/21 [address] [facility] [phone] [facility] [place] lab 08/25/21 Ervin Schroeder MD Referring Provider Family Medicine 03/24/[address] [place] [phone] documented as of this encounter
--- OUTSIDE RECORDS SUMMARY | 2022-02-04 23:06 | XMS_ITS | Clinical Summary ---
:1990 Author Organization [facility] Address [address] [place] [address] Care Team Providers Name Role Phone Ana Red P.A.-C. Primary Care Provider [phone] Source Comments Patient records contain information from all sites at [facility]. For routine questions regarding patient records, call [phone] during business hours, M-F 8:00 AM - 5:00 PM Central Time. Record requests for emergency care only can be directed to [phone] at any time.[facility] Allergies Active Allergy Reactions Severity Noted Date [...] by mouth solution (four) times a day. folic acid 1 mg TAKE 1 TABLET BY 90 tablet 3 01/30/2022 Active tablet MOUTH DAILY cyclobenzaprine Take 1 tablet (5 5 tablet 0 01/30/2022 Active (FLEXERIL) 5 mg mg total) by tablet mouth daily as needed for muscle spasms. cyclobenzaprine Take 1 tablet (5 30 tablet 0 02/02/2022 Active (FLEXERIL) 5 mg mg total) by tablet mouth at bedtime as needed for muscle spasms. furosemide (LASIX) 20 Take 2 tablets 180 tablet 3 02/02/2022 1 0 Active mg tabletIndications: (40 mg total) by 2022 Ascites Chronic, mouth daily. Thrombocytopenia Return to full (HCC), Cirrhosis 40mg dose on Alcoholic (HCC), Friday 02/02. Hypertension Portal (HCC), Abnormal Liver Function Test spironolactone Take 2 tablets 60 tablet 2 02/02/2022 Active (ALDACTONE) 50 mg (100 mg total) by tablet mouth daily. Return to full 100mg dose on Friday 02/02. ondansetron ODT Dissolve 1 tablet 0 04/23/202101/14 Discontinued (ZOFRAN-ODT) 8 mg in the mouth (Stop Taking at disintegrating tablet (three) times a Discharge) day as needed for nausea or vomiting. ergocalciferol Take 50,000 Units 0 04/01/202101/14 Discontinued (DRISDOL) 50,000 Unit by mouth once a 022 (Stop Taking at capsule week. Mondays [...] Discontinued (ALDACTONE) 50 mg (100 mg total) (Stop Taking at tabletIndications: mouth daily. Discharge) Cirrhosis Alcoholic (HCC), Hypertension Portal (HCC), Thrombocytopenia (HCC), Abnormal Liver Function Test, Ascites Chronic furosemide (LASIX) 20 Take 2 tablets 180 tablet 3 12/10/2021 0 01/28 Discontinued mg tabletIndications: (40 mg total) 2021 (Reorder) Cirrhosis Alcoholic mouth daily. (HCC), [...] Take 1 tablet (5 15 tablet 0 01/07/2022 09/20 Discontinued (FLEXERIL) 5 mg mg total) by [...] lactulose (CHRONULAC) Take 30 mL (20 g 92417 mL 3 01/27/202201/29 Discontinued 20 gram/30 mL [...] mouth (Reorder) solution (three) times a day. furosemide (LASIX) 20 Take 1 tablet (20 90 tablet 3 01/29/202202/02 Discontinued mg tabletIndications: mg total) by (Reorder) Thrombocytopenia mouth daily. (HCC), Ascites Return to full Chronic, Cirrhosis 40mg dose on Alcoholic (HCC), Friday 02/02. Hypertension Portal (HCC), Abnormal Liver Function Test spironolactone Take 1 tablet (50 60 tablet 2 01/29/202202/02 Discontinued (ALDACTONE) 50 mg mg total) by (Reorder) tablet mouth daily. Return to full 100mg dose on Friday 02/02. cyclobenzaprine Take 1 tablet (5 15 tablet 0 01/30/202201/30 Discontinued (FLEXERIL) 5 mg mg total) by ( Reorder) tablet mouth daily as needed for muscle spasms. Active Problems Problem Noted Date Pain Low Back Vertebrogenic 02/01/2022 Attention Deficit Hyperactive Disorder 02/01/2022 Chronic Kidney Disease (CKD), Stage 3b Glomerular Filt ration Rate (GFR) 30 02/01/2022 To 44 Insomnia 02/01/2022 Restless Leg Syndrome 02/01/2022 Deficiency Vitamin D 02/01/2022 Esophageal Varices Without Bleeding 01/28/2022 Smoking Tobacco Use Personal History 10/10/2021 Overview: Quit smoking spring 2021. Chronic Pain Syndrome 10/10/2021 Deficiency Vitamin A 10/08/2021 Hypertension Portal 09/05/2021 Overview: Added automatically from request for dolly daley [id number] Deficiency Coagulation Acquired 07/07/2021 Overview: Added automatically from request for dolly daley [phone] Thrombocytopenia 07/01/2021 Patent Foramen Ovale 03/19/2021 Anemia Macrocytic 03/12/2021 Long QT Syndrome 01/30/2021 Hepatic Failure Unspecified Without Coma 01/24/2021 Alcoholic Cirrhosis Of Liver With Ascites 01/23/2021 Pancreatitis Chronic 01/23/2021 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/30 Gastroesophageal Reflux Disease Without Esophagitis Anxiety Disorder Unspecified 01/19/2012 Rhinitis Allergic 04/06/2006 Moderate Or Severe Use Disorder (Dependence) Alcohol R emission Overview: Patient reports being sober for approxim ately two years as of Fall 2021. Effusion Pleural Atelectasis Splenomegaly Congestive Chronic Resolved Problems Problem Noted Date Resolved Date Pyelonephritis 02/01/2022 02/02/2022 Failure Renal Acute (Acute Kidney Injury) 01/20/2022 02/02/2022 Hepatic Encephalopathy Without Coma 01/09/2022 10/0 07/2021 COVID-19 Infection 11/11/2021 01/20/2022 Snf Use Of Opiate Analgesic 10/10/20212021 Overview: No longer using chronic opioids. Opioids were discontinued during hospitalization of October 2021. Mood Disorder 10/10/2021 01/07/2022 Eating Disorder 10/10/2021 01/07/2022 Acute Respiratory Failure 03/12/2021 02/02/2022 Acute Vaginitis 01/30/2021 02/02/2022 Displacement Of Intrauterine Contraceptive Device Initial 02/02/2022 Fracture Humerus Distal Displaced Subsequent With Routine 02/02/2022 Healing Left Hypomagnesemia 09/30/2018 02/02/2022 Poisoning By 4 Aminophenol Derivatives Accidental Unintentio nal 09/30/2018 02/02/2022 Initial Hypokalemia 09/08/2018 02/02/2022 Acute Pancreatitis Without Necrosis Or Infection Unspecified 09/08/2018 02/02/2022 Anemia Iron Deficiency 03/06/2007 02/02/2022 Encounters Date Type Specialty Care Team Description 02/04/2022 Orders Only Acute Care Sara Gracia M.D. 02/04/2022 Clinical Gastroenterology and Matthew Jerome, Phone Contact (RN and Communication Hepatology Lilian Santillan MD follow up ) 02/04/2022 Clinical [facility] Communication Medicine Myrtle Govea Follow-up (CO CE - 78) 02/03/2022 Clinical Gastroenterology and Matthew Jerome, Communication Hepatology Lilian Santillan 02/02/2022 Orders Only [facility] Internal [facility], Medicine Ana, P.A.-C. 02/02/2022 Clinical [facility], [facility] Medicine Ana, P.A.-C. 02/01/2022 Emergency AshlynPaty burciaga Pain Flank (Pr imary Dx); - L, P.A.-C. Ascites Chronic; 02/03/2022 Ervin Mazariegos Thrombocytopen ia (HCC); Lilain Johnson Cirrhosis Alcoholic (HCC); Vj Rodrigez, Hypertension P ortal (HCC); M.B., Ch.B. Abnormal Liver Function Test 01/30/2022 Clinical Acute Care Ashley Gracia M.D. 01/30/2022 Orders Only Acute Care Sara Gracia M.D. 01/30/2022 Clinical Family Medicine Nighat Dickson Post Hospi meagan Ashley J, R.N. Follow-up 01/30/2022 Orders Only [facility] Internal Anny Harinder Solitario Hudson M.D. 01/30/2022 Clinical [facility] Internal [place], Post Hosp ital Communication Medicine Parris Schaefer, Follow-up R.N. 01/30/2022 Clinical [facility], Communication Frances KellerA.-C. 01/29/2022 Refill [facility], Med Refil l Solitario Perez P.A.-C. 01/29/2022 Orders Only Pharmacy Genaro Handley 01/29/2022 Clinical Transplant Adry Peterson Phone Contact Communication 01/28/2022 Virtual Visit Transplant Matthew Jerome Y, Canceled (Danie albright: VikBGraeme, Callie. Hospitalized / ill) 01/28/2022 Clinical Acute Care Doll, Pre-visit Testi ng Communication Yue Burciaga, Orders M.Jeri 01/27/2022 Orders Only Pharmacy Evi Lanier 01/26/2022 Anesthesia Event Gastroenterology and Gildardo Hickey Hepatology E, INSULATION HOSEMAN, PLANNING MANAGEMENT IT SPECIALIST, DNAP Catia Green, INSULATION HOSEMAN, PLANNING MANAGEMENT IT SPECIALIST, DNAP 01/26/2022 Ancillary Procedure 01/26/2022 Clinical Pharmacy Christopher, Nicole Rx Prior Communication A Authorization (PA DENIED - LIDOCA INE 5% PATCH) 01/26/2022 Orders Only Pharmacy Christopher, Nicole A 01/23/2022 Ancillary Procedure 01/23/2022 Anesthesia Event Gastroenterology and Roseanne Hepatology Allegra Wilkes, INSULATION HOSEMAN, PLANNING MANAGEMENT IT SPECIALIST 01/22/2022 [facility], Form Revi ew Communication Solitario Perez, ([facility] P.A.-C. med reconciliat ion) 01/20/2022 Hospital Encounter Cody Knight Failure Renal Acute (Acute Kidney Injury) (HCC) (Primary Dx); Ester Burciaga M.D. Cirrhosis Alcoholic (HCC); 01/29/2022 [place], Alcohol Use Uns pecified With Unspecified Alcohol Induced Disorder (HCC); Dallin Burgos M.D. Ascites; Joshua Johnson Hepatic Failure Unspecified Without Coma (HCC); Lilian Santiago Hepatic Encephalopathy Without Coma (HCC ); Ervin Mazairegos Debility [R53. 81 (ICD-10-CM)]; Lilian Johnson Decline Functio nal Status [R53.81 (ICD-10-CM)]; Thrombocytopeni a (HCC); Ascites Chronic ; Cirrhosis Alcoh olic (HCC); Hypertension Po rtal (HCC); Abnormal Liver Function Test; Esophageal Vari sally Without Bleeding (HCC) 01/20/2022 Hospital Encounter Laboratory Medicine Digna Campbell Hepatic Failure Lilian Schaefer Unspecified Wit hout Coma (HCC) 01/20/2022 Office Visit [facility], Pain Low Back Unspecified (Primary Dx); Medicine Ana, Cirrhosis Alcoh olic (HCC); P.A.-C. Ascites; Long QT Syndrom e; Rhinitis Allerg ic; Alcohol Use Uns pecified With Unspecified Alcohol Induced Disorder (HCC) 01/20/2022 Clinical Gastroenterology and Felicita Spicer Communication Hepatology Patrica, L.P.N. 01/20/2022 Refill [facility], Med Refil l Solitario Perez P.A.-C. 01/20/2022 Orders Only Pharmacy Mestad, Lina C 01/19/2022 Orders Only [facility] Ana P.A.-C. 01/19/2022 Orders Only Transplant Ailts, Garry Engle., R.N., C.C.T.C. 01/19/2022 Clinical [facility], Communication Shanita Keller.A.-C. 01/17/2022 Clinical Gastroenterology and Ervin Mckeon Communication Hepatology MJules, Ph.D. 01/16/2022 Clinical Transplant Fabrizio, Phone Contact; Communication Lilian Rowland, Appointment (LABs) Ph.D. 01/16/2022 Clinical Gastroenterology and Digna Campbell Communication Hepatology Lilian Schaefer 01/15/2022 Clinical Transplant Primitivo, Phone Contact Communication Parris 01/15/2022 Clinical [facility] Internal [place], Post Hosp ital Communication Medicine Ciara Johnson RSumaNSuma Follow-up 01/14/2022 Clinical Transplant Karin, Appointment (Oc tober Communication Adeline Gannon, follow up) Lilian, Ph.D. 01/13/2022 Telemedicine Transplant Karin, Moderate Or Sev ere Adeline Gannon, Use Disorder Lilian, Ph.D. (Dependence) Alcohol Cathleen, Remission (HCC) Elena Burgos (Primary Dx) 01/13/2022 Telemedicine Transplant Lambert, Cirrhosis Alcoh olic Joel Jagdeep, (HCC) (Primary Dx) MonicaS.W., M.S.W. 01/13/2022 Clinical Gastroenterology and Digna Campbell Communication Hepatology Lilian Schaefer 01/13/2022 Orders Only Social Work Joel Tan Jagdeep, L.Kirit.Katrin.S.W., M.S.W. 01/13/2022 Clinical Gastroenterology and Digna Campbell Communication Hepatology Lilian Schaefer 01/09/2022 Hospital Encounter Jose, Hepatic E ncephalopathy Without Coma (HCC) (Primary Dx); - Migue Llanes Jr., Deficiency Vi reglain A; 01/14/2022 Lilian Cirrhosis Alcoholic (HCC); Reyes, Pain Low Back U nspecified; Reese Burgos, Decline Functio nal Status [R53.81 (ICD-10-CM)] Sree Up M.D. 01/08/2022 Clinical [facility] Internal [facility], Communication Medicine Ana, P.A.-C. 01/07/2022 Office Visit [facility], Hypertens ion Portal (HCC) (Primary Dx); Medicine Ana, Cirrhosis Alcoh olic (HCC); P.A.-C. Ascites; Pancreatitis Ch ronic (HCC); Pain Low Back M echanical 01/07/2022 Patient Self-Triage Symptom Electronics Assembler And Tester, Provider 01/06/2022 Clinical Gastroenterology and Felicita Spicer Communication Hepatology E, L.P.N. 12/27/2021 Patient Self-Triage Symptom Electronics Assembler And Tester, Provider 12/25/2021 Clinical [facility], Communication Medicine Ana, P.A.-C. 12/21/2021 Emergency Emergency Medicine Gonzalez, Ascites ( Primary Dx) Ted Johnson M.D., Ph.D. Clifton Liu M.D. 12/19/2021 Emergency Emergency Medicine Gonzalez, Pain Back (Primary - Ted Johnson M.D., Dx) 12/20/2021 Ph.D. Migue Garcia Jr., M.D. 12/19/2021 Nurse Triage [facility] Internal [facility], Back Pain Medicine Ben Johnson R.N. 12/18/2021 Orders Only Gastroenterology and [place]ousa, Matthew Y, Mood Disorder (HCC) (Primary Dx); Hepatology Lilian Santillan Anxiety Disor ijeoma Unspecified 12/15/2021 Lab Laboratory Medicine Loukinela, Alcohol Moderate Or Severe Use Disorder (Dependence) Uncomplicated (HCC); Adeline L, Cannabis Use Un specified Uncomplicated M.Jeri, Ph.D. 12/12/2021 Documentation Transplant Joel Tan, L.I.C.S.W., M.S.W. 12/11/2021 Clinical Transplant Fabrizio, Phone Contact; Communication Lilian Rowland, Appointment (LABS) Ph.D. 12/11/2021 Clinical Gastroenterology and Felicita Spicer Communication Hepatology Patrica, L.P.N. 12/11/2021 Clinical [facility], Disabilit y Sprankle Millsg Communication Medicine Ana, Certificate P.A.-C. 12/10/2021 Office Visit Gastroenterology and Luisusa, Matthew Y, Cirrh osis Alcoholic (HCC) (Primary Dx); Hepatology Lilian Santillan Hypertension Portal (HCC); Thrombocytopeni a (HCC); Abnormal Liver Function Test; Deficiency Katy min A; Ascites Chronic ; Hepatic Encepha lopathy Without Coma (HCC) 12/04/2021 Emergency Emergency Medicine Katherineamjacintanda, Ascites ( Primary Dx); Neeru Palma M.D. 12/04/2021 Clinical Gastroenterology and Jethro Communication Hepatology Nabila Schaefer M.D. 12/04/2021 Clinical Gastroenterology and Jethro Communication Hepatology Nabila Schaefer M.D. 12/04/2021 Clinical Gastroenterology and Ashley Morelos Hepatology Nabila Schaefer M.D. 12/04/2021 Documentation Gastroenterology and Jethro Hepatdina Schaefer M.D. 12/04/2021 Clinical Gastroenterology and Ashley Morelos Hepatdina Schaefer M.D. 12/03/2021 Clinical [facility] Internal [place], BIANKA / Disha eal Letter Communication Medicine Lilian Gee, M.S. 12/03/2021 Orders Only Ana Red, P.A.-C. 12/02/2021 Hospital Encounter Laboratory Medicine Matthew Jerome, Cirrhosis Alcoholic (HCC); Lilian Santillan Hypertension Portal (HCC); Thrombocytopeni a (HCC); Abnormal Liver Function Test; Change Mental S tatus 12/02/2021 Office Visit [facility] Internal [facility] Acute A nd Subacute Hepatic Failure Without Coma (HCC) (Primary Dx); Medicine Sunny hanley D.O. Pancreatitis Chronic (HCC); Dock Pumper Use O f Opiate Analgesic; Alcohol Use Uns pecified With Unspecified Alcohol Induced Disorder (HCC); Alcoholic Cirrh osis Of Liver Without Ascites (HCC); Ascites Chronic ; Insomnia; High Risk Medic ation 12/02/2021 Clinical [facility] Internal [facility], Communication Medicine Lilian Gee, M.S. 12/02/2021 Clinical Pharmacy Ashley Be 12/02/2021 Clinical [facility] Communication Medicine Sunny hanley, JeriOSuma 12/02/2021 Orders Only Ana Red, P.A.-C. 12/02/2021 Clinical [facility] [place], Post Hosp ital Communication Medicine Ciara Johnson, R.N. Follow-up 11/27/2021 Orders Only [facility] Internal [facility], Solitario Gee M.D., M.S. 11/26/2021 Clinical [facility] Internal Shannan Rand Communication Medicine Lilian 11/26/2021 Clinical Gastroenterology and Matthew Jerome, Communication Hepatology Tyrell MJules 11/26/2021 Community Orders Schroeder, Steatohepat itis Non Alcoholic (Primary Dx); Ervin Schaefer M.D. Unspecified Ci rrhosis Of Liver (HCC) 11/18/2021 Clinical Alina Carranza R, R.N. 11/14/2021 Community Orders Schroeder, Abuse Tobac co Smoking (Primary Dx); Ervin Schaefer M.D. Unspecified Ci rrhosis Of Liver (HCC) 11/12/2021 Hospital Encounter Rosarua Sevilla (Primary Dx); - Lilian oJhnson, Change Mental S tatus; 11/26/2021 M.P.H. Malaise (Concern For Covid-19); Greyson, Cirrhosis Alcoh olic (HCC) Jo Ann Gannon M.D., M.S. Jody Aguilar M.B., B.Chir. 11/12/2021 Clinical Gastroenterology and [place]ousa, Matthew Y, Covid Positive Communication Hepatology Lilian Santillan 11/10/2021 Episode Changes Transplant Ailts, Laney Johnson M.A.N., R.N., C.C.T.C. 11/09/2021 Hospital Encounter Greyson, Hepatic - Jo Ann Gannon, Encephalopathy 11/11/2021 Lilian, M.S. Without Coma (HCC) Jody Aguilar (Primary Dx) Vik Lucas, B.Chir. 11/04/2021 Clinical Gastroenterology and Symone Beebe Communication Hepatology L, R.N. from Last 3 Months Immunizations Name [...] History Relation Name Comments ADD Brother 1 Ucrt Depression Brother 1 Curt Seizures Brother 1 Curt Suicide Attempts Brother 1 Curt ADD Brother 2 Ricardo Hyperlipidemia Father Roscoe Carias Arthritis Maternal Grandfather Bradley Cespedes Asthma Maternal Grandfather Bradley Cespedes Hypertension Maternal Grandfather Bradley Cespedes Arthritis Maternal Grandmother Desire Cespedes Asthma Maternal Grandmother Desire Cespedes Migraines Maternal Grandmother Desire Cespedes Anxiety disorder Mother Parris Diabetes Paternal Grandfather Laureano Carias Prostate cancer Paternal Grandfather Laureano Carias ADD Sister Christina Relation Name Status Comments Brother 1 Curt Brother 2 Ricardo Father Roscoe Carias Maternal Grandfather Bradley Cespedes Maternal Grandmother Desire Cespedes Mother Parris Paternal Grandfather Laureano Vasquez Social History Tobacco Use Types Packs/Day Years [...] 07/17/2021 organizations such as pentecostalism groups, unions, fraGuideWall or athletic groups, or school groups? 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 [address] [place] [phone] Hospital Gastroenterology and [facility] 2 Encounter Hepatology Tyrell Rodriguez M.D. [address] [place] [phone] Surgery Gastroenterology and [facility] ESOPHAG OGASTRODUODENOSCOPY 2 Hepatology YTyrell M.D. [address] [place] [phone] Telemedicine Transplant 2 Lab Laboratory Medicine Karin, 2 Adeline Gannon M.D., Ph.D. [address] [place] [phone] Lab Laboratory Medicine Karin, 2 Adeline Gannon M.D., Ph.D. [address] [place] [phone] Office Visit Transplant Karin, 2 Adeline Gannon M.D., Ph.D. [address] [place] [phone] Office Visit [facility], 2 Medicine Vernell Perez [address] [place] [phone] [facility]ment [facility] YTyrell, Lilian [address] [place] [phone] Appointment Gastroenterology and Doll, 2 Hepatology Yue Burciaga M.D. [address] [place] [phone] Office Visit Gastroenterology and Matthew Jerome 2 Hepatology Tyrell Rodriguez, Lilian [address] [place] [phone] Appointment Radiology LuisMatthew abdul 2 Tyrell Rodriguez M.D. [address] [place] [phone] Scheduled Procedures Name Priority Associated [...] 02/26/2009, 02/26/2009, Additional history exists Abdominal Ultrasound 08/02/2022 02/01/2022, 11/25/2021, 11/09/2021, Additional history exists Creatinine Level 02/02/2023 02/02/2022, 02/01/2022, 01/29/2022, Additional history exists Potassium Level 02/02/2023 02/02/2022, 02/01/2022, 02/01/2022, Additional history exists Sodium Level 02/02/2023 02/02/2022, 02/01/2022, 02/01/2022, Additional history exists DTaP,Tdap,and Td Vaccines (7 - Td 03/07/2024 03/07/2014, , or Tdap) 05/26/1995, Additional history exists Hepatitis B Vaccines Completed 12/28/2000, 12/17/1997, 04/30/1997 Depression Screening (Annual Completed 12/02/2021 PHQ-2) HIV Screening Completed 01/25/2022, 09/30/2021 Medical Devices Implanted Type Area Line Rider Device Shelf Model / Identifier Expiration Serial / Date Lot Intrauterine Intrauterine N/A: Device Device Cervix Procedures Procedure Name Priority Date/Time Associated Comments Diagnosis US PARACENTESIS WITH RAD - Routine 02/02/2022 Result s for IMAGING GUIDANCE (most 9:26 AM CDT this proced ure inpatients and are in the all results outpatients) section. CELL COUNT AND Timed 02/02/2022 Ascites Chronic Results fo r DIFFERENTIAL, BF 8:54 AM CDT this proced ure are in the results section. GRAM STAIN Timed 02/02/2022 Ascites Chronic Results for 8:54 AM CDT this procedure are in the results section. CREATINE KINASE (CK), S Timed 02/02/2022 Resu lts for 6:14 AM CDT this procedure are in the results section. PROTHROMBIN TIME (PT), P Routine 02/02/2022 Res ults for 6:14 AM CDT this procedure are in the results section. CBC WITH DIFFERENTIAL, B Routine 02/02/2022 Res ults for 6:14 AM CDT this procedure are in the results section. BASIC METABOLIC PANEL, Routine 02/02/2022 Resul ts for S/P 6:14 AM CDT this procedure are in the results section. CT ABDOMEN PELVIS WITH RAD - 02/01/2022 Resul ts for IV CONTRAST Semiurgent 2:42 PM CDT this procedure (Fast; most ED are in the patients; some results inpatients) section. CT CHEST ANGIOGRAM AND RAD - Emergent 02/01/2022 Res ults for PULMONARY ARTERIES WITH (Fastest; for 2:42 PM CDT thi s procedure IV CONTRAST the most are in the critically ill results patients) section. HC URINALYSIS AUTO WO Routine 02/01/2022 Result s for MICRO 1:42 PM CDT this procedure are in the results section. DIPSTICK, U STAT 02/01/2022 Results for 1:37 PM CDT this procedure are in the results section. HC OSMOLALITY ASSAY STAT 02/01/2022 Results for URINE 1:37 PM CDT this procedure are in the results section. PH, RANDOM, U STAT 02/01/2022 Results for 1:37 PM CDT this procedure are in the results section. MICROSCOPIC MANUAL STAT 02/01/2022 Results f or 1:37 PM CDT this procedure are in the results section. GRAM'S ST, U STAT 02/01/2022 Results for 1:37 PM CDT this procedure are in the results section. URINALYSIS WITH STAT 02/01/2022 Results for MICROSCOPIC 1:37 PM CDT this procedure are in the results section. LACTATE, B/P Timed 02/01/2022 Results for 1:32 PM CDT this procedure are in the results section. DX CHEST AP OR PA AND RAD - 02/01/2022 Result s for LATERAL 2 VIEWS Semiurgent 11:14 AM CDT this procedu re (Fast; most ED are in the patients; some results inpatients) section. BACTERIA / RAUDEL STAT 02/01/2022 CULTURE, BLOOD 10:47 AM CDT LACTATE, POCT, B STAT 02/01/2022 Results for 10:36 AM CDT this procedure are in the results section. VBG & LYTES CG8+, POCT, STAT 02/01/2022 Resu lts for B 10:36 AM CDT this procedure are in the results section. HEPATIC FUNCTION PANEL, STAT 02/01/2022 Resu lts for S 10:34 AM CDT this procedure are in the results section. CBC WITH DIFFERENTIAL, B STAT 02/01/2022 Res ults for 10:34 AM CDT this procedure are in the results section. BASIC METABOLIC PANEL, STAT 02/01/2022 Resul ts for S/P 10:34 AM CDT this procedure are in the results section. AMMONIA STAT 02/01/2022 Results for 10:34 AM CDT this procedure are in the results section. BACTERIA / RAUDEL STAT 02/01/2022 CULTURE, BLOOD 10:34 AM CDT LACTATE, POCT, B Routine 02/01/2022 Results for 10:31 AM CDT this procedure are in the results section. VBG & LYTES CG8+, POCT, Routine 02/01/2022 Resu lts for B 10:31 AM CDT this procedure are in the results section. ECG STAT 02/01/2022 Results for 10:22 AM CDT this procedure are in the results section. OUTSIDE CT BODY Routine 01/31/2022 Results for 7:05 AM CDT this procedure are in the results section. CBC WITH DIFFERENTIAL, B Routine 01/29/2022 Res [...] results section. from Last 3 Months Results US Paracentesis with Imaging Guidance (02/02/2022 9:26 AM CDT)Only the most recent of8 resultswithin the time period is included. Anatomical Region Laterality Modality Abdomen, Ultrasound RST LOS, Ultrasound ARZ LOS, Procedure F LA N/A Ultrasound LOS, Abdominal FLA LOS, Procedural Specimen (Source) Anatomical Collection Method Collection Time Re ceived Time Location / / Volume Laterality 02/02/2022 9:37 AM CDT Impressions 02/02/2022 9:53 AM CDT Ultrasound-guided paracentesis. FISH SALTER Narrative 02/02/2022 9:53 AM CDT EXAM: US [...] met. POST-PROCEDURE DIAGNOSIS: Ascites. IMPRESSION: Ultrasound-guided paracentesis. FISH SALTER Yue PERALES US PROCEDURES Cell Count and Differential, Body Fluid (02/02/2022 8:54 AM CDT)Only the most recent of6 resultswithin the time period is included. [facility] Method Time Signature Fluid Type Peritoneal- 02/02/2022 [...] Its performance characteri stics were determined by [facility] in a manner co nsistent with CLIA requirements. This test has not bee n cleared or approved by the U.S. Food and Drug Admin istration. Lymphocytes 85 Synovial <75% % 02/02/2022 11:59 AM CD T DHPM Monocytes/Macrophages 13 Synovial <70% % 02/02/2022 1 1:59 AM CDT DHPM Other Cells 2 % 02/02/2022 11:59 AM CDT [facility] Comment: ----REFERENCE VALUE---- The reference range and other method performance specifications have not been established for this bodyfluid. The test result must be integrated into the clinical context for interpretation. Other Cells Are: Mesothelial cells 02/02/2022 11:5 9 AM CDT [facility] Comment SeeComment 02/02/2022 11:59 AM CDT [facility] Comment: No blasts or malignant cells se en. Erythrophagocytosis present. Reviewed by: Tech 02/02/2022 11:59 AM CDT DH M Specimen Anatomical Collection Method Collection Time Receive d Time (Source) Location / / Volume Laterality Fluid 02/02/2022 8:54 AM 2 (Peritoneal CDT 10:05 AM CDT Fluid) Matthew Santillan M.D. LAB BODY FLUIDS AND STOOLS ORDERABLES Performing Organization Address City/[facility] Code Phon e Number [facility] - [address] [place], [place] [address] [place] [address] Laboratories-[address] Gram Stain (02/02/2022 8:54 AM CDT)Only the most recent of3 resultswithin the time period is included. [facility] Method Time Signature Gram Stain No organisms 02/02/2022 DTL seen. 12:55 PM CDT Specimen Anatomical Collection Method Collection Time Receive d Time (Source) Location / / Volume Laterality Fluid 02/02/2022 8:54 AM 2 (Peritoneal CDT 10:20 AM CDT Fluid) Comment: Specimen Source Site: Fluid Matthew Santillan M.D. LAB MICROBIOLOGY - GENERAL ORDERABLES Performing Organization Address City/[facility] Phon e Number [facility] - [address] [place], [place] [address] [facility] [place] [address] [address] (ABNORMAL) Prothrombin Time (PT) (02/02/2022 6:14 AM CDT)Only the most recent of 12 resultswithin the time period is included. [employer] Method Time Signature Prothrombin 35.3 (H) 9.4 [...] Santillan LAB BLOOD ADD-ON Performing Organization Address City/State/[facility] Code Phon e Number [facility] - [address] [place] [address] [facility] [place] [address] Laboratories-[facility] 200 [facility] (ABNORMAL) CBC with Differential, Blood (02/02/2022 6:14 AM CDT)Only the most recent of24 resultswithin the time period is included. [facility] MSI Method Time Signature Hemoglobin 7.3 (L) 11.6 [...] Blood (Blood, 02/02/2022 6:14 AM 02/03/20 22 7:00 Venous) CDT AM CDT Yue Silver M.D. LAB BLOOD ADD-ON Performing Organization Address City/[facility] Phon e Number [facility] - [address] CK (Creatine Kinase) (02/02/2022 6:14 AM CDT) athologist Signature Creatine Kinase 29 26 - 192 02/02/2022 DTL (CK), S U/L 7:44 AM CDT Specimen Anatomical Collection Method Collection Time Receive d Time (Source) Location / / Volume Laterality Blood (Blood, 02/02/2022 6:14 AM 02/03/20 22 7:21 Venous) CDT AM CDT Darrick Santillan LAB BLOOD ADD-ON Performing Organization Address City/[facility] Phon e Number [facility] - [address] (ABNORMAL) Basic Metabolic Panel (02/02/2022 6:14 AM CDT)Only the most recent of 25 resultswithin the time period is included. athologist Signature Potassium, S 3.8 3.6 - [...] [facility] [address] [place], [place] [address] [facility] [place] [place] [address] Laboratories-[facility] [address] Chest Angiogram and Pulmonary Arteries with [...] Malpositioned IUD.. Paty PERALES CT PROCEDURES CT Abdomen Pelvis with IV Contrast (02/01/2022 2:42 PM CDT)Only the most recent of2 resultswithin [...] anasarca. Multilevel fred tebral compressions. Procedure Note Silvesrte Montgomery M.D. - 02/01/2022Forma tting of this [...] anasarca. 3. Malpositioned IUD.. Paty Goldberg P.A.-C. IMG CT PROCEDURES (ABNORMAL) Dipstick, POCT, Urine (02/01/2022 1:42 PM CDT)Only the most recent of 4 resultswithin the time period is included. Patholo gist Method Time Signature Glucose, 100 (A) Negative 02/01/2022 PCED POCT, U mg/dL 1:44 PM CDT Ketone, POCT, Trace (A) Negative 02/01/2022 PCED U mg/dL 1:44 PM CDT Specific 1.020 1.005 - 02/01/2022 PCED Christmas, 1.030 1:44 PM CDT POCT, U Blood, [...] City/State/ZIP Code Phon e Number POC [facility] [address] [place] [address] OUTPATIENT LABS PCED [facility] Laboratories - [place], [place] [id number] [place] [address] Osmolality, Urine (02/01/2022 1:37 PM CDT)Only the most recent of5 resultswithin the time period is included. P athologist Signature Osmolality, U 548 150 - 1150 02/01/2022 DTL mOsm/kg 8:41 PM CDT Specimen Anatomical Collection Method Collection Time Receive d Time (Source) Location / / Volume Laterality Urine 02/01/2022 1:37 PM 2 2:09 CDT PM CDT Paty Goldberg P.A.-C. LAB URINE ORDERABLES Performing Organization Address City/State/ZIP Code Phon e Number [facility] [address] (ABNORMAL) Dipstick, Urine (02/01/2022 1:37 PM CDT)Only the most recent of7 resultswithin the time period is included. Patholo [...] P.A.-C. LAB URINE ORDERABLES Performing Organization Address City/[facility]/ZIP [facility] Phon e Number [facility] [address] pH, Random, Urine (02/01/2022 1:37 PM CDT)Only the most recent of5 resultswithin the time period is included. P athologist Signature pH, Random, U 5.9 4.5 - 8.0 02/01/2022 DT 8:41 PM CDT Specimen Anatomical Collection Method Collection Time Receive d Time (Source) Location / / Volume Laterality Urine 02/01/2022 1:37 PM 2 2:09 CDT PM CDT Paty Goldberg P.A.-C. LAB URINE ORDERABLES Performing Organization Address City/[facility]/ZIP [facility] Phon e Number [facility] - [id number] [place] [address] (ABNORMAL) Microscopic Manual (02/01/2022 1:37 PM CDT)Only the most recent of5 resultswithin the time period is included. P athologist Signature Microscopy Abnormal 02/01/2022 DTL 8:35 PM CDT RBC <3 <3 /hpf 02/01/2022 DTL 8:35 PM CDT WBC 1-3 /hpf 02/01/2022 DTL 8:35 PM CDT Comment: ----REFERENCE VALUE---- 1-3 ??(Males) 1-10 (Females) Transitional Epithelial Cells 1-3 (A) /hpf 02/01/2022 8:35 PM CDT DTL Specimen Anatomical Collection Method Collection Time Receive d Time (Source) Location / / Volume Laterality Urine 02/01/2022 1:37 PM 2 2:09 CDT PM CDT Paty Goldberg P.A.-C. LAB URINE ORDERABLES Performing Organization Address City/[facility]/ZIP Code Phon e Number [phone] [place] [address] (ABNORMAL) Gram Stain, Urine (02/01/2022 1:37 PM CDT)Only the most recent of2 resultswithin the time period is included. Patholo gist Method Time Signature Source Urine, Urine, 02/01/2022 DTL Midstream 2:09 PM CDT Gram Stain, U Positive (A) Negative 02/01/2022 DTL 2:36 PM CDT Comment: Many Gram-positive cocci Specimen Anatomical Collection Method Collection Time Receive d Time (Source) Location / / Volume Laterality Urine 02/01/2022 1:37 PM 2 2:08 CDT PM CDT Paty Goldberg P.A.-C. LAB URINE ORDERABLES Performing Organization Address City/[facility] Phon e Number [phone] [place] [address] (ABNORMAL) Urinalysis with Microscopic: Urine, Midstream (02/01/2022 1:37 PM CDT)Only the most recent of7 resultswithin the time period is included. Patholo gist Method Time Signature Source Urine, Urine, 02/01/2022 [...] Laterality Urine (Urine, 02/01/2022 1:37 PM 02/02/20 2:08 Midstream) CDT PM CDT Paty Goldberg P.A.-C. LAB URINE ORDERABLES Performing Organization Address [facility] Phon e Number [facility] - [address] DTL [address]-[facility] 200 [facility] Lactate (02/01/2022 1:32 PM CDT)Only the most recent of6 resultswithin the time period is included. P athologist Signature Lactate, P 1.6 0.5 - 2.2 02/01/2022 STMA mmol/L 1:50 PM CDT Specimen Anatomical Collection Method Collection Time Receive d Time (Source) Location / / Volume Laterality Blood (Blood, 02/01/2022 1:32 PM 02/02/20 1:37 Venous) CDT PM CDT Paty LaguerreCSuma LAB BLOOD NON ADD-ON Performing Organization Address City/[facility] Phon e Number [facility] - [address] [place] [address] [facility] [place] [address] Laboratories-[facility] [address] SW DX Chest AP or PA and Lateral [...] Paty Goldberg P.A.-C. IMG DIAGNOSTIC IMAGING PROCE DUR Venous Blood Gas and Electrolytes CG8+, POCT (02/01/2022 10:36 AM CDT)Only the most recent of5 resultswithin [...] POCT ORDERABLES - DEVICE Performing Organization Address [facility] Phon e Number [place] [phone] Lactate, POCT (02/01/2022 10:36 AM CDT)Only the most recent of8 resultswithin the time period is included. Analysis Performed At Patho logist Time Signature Lactate, POCT Collected DEFAULT 02/01/2022 SMLX 10:36 AM CDT Specimen Anatomical Collection Method Collection Time Receive d Time (Source) Location / / Volume Laterality Blood (Blood, 02/01/2022 10:36 02/01/2022 Venous) AM CDT 10:36 AM CDT Paty Goldberg P.A.-C. LAB POCT ORDERABLES - DEVICE Performing Organization Address [facility] Phon e Number [address] (ABNORMAL) Hepatic Function Panel (02/01/2022 10:34 AM CDT)Only the most recent of12 resultswithin the time period is included. Patholo [...] P.A.-C. LAB BLOOD ADD-ON Performing Organization Address City/[facility] Phon e Number [facility] - [address] [place], [place] [address] [place] [address] (ABNORMAL) Ammonia (02/01/2022 10:34 AM CDT)Only the most recent of5 results within the time period is included. P athologist Signature Ammonia, P 68 (H) <=30 02/01/2022 DTL mcmol/L 11:32 AM CDT Specimen Anatomical Collection Method Collection Time Receive d Time (Source) Location / / Volume Laterality Blood (Blood, 02/01/2022 10:34 02/01/2022 Venous) AM CDT 10:59 AM CDT Paty Goldberg P.A.-C. LAB BLOOD NON ADD-ON Performing Organization Address City/[facility]/ZIP Code Phon e Number [facility] - [address] [place], [place] [address] [place], [place] [phone] [place] [address] ECG 12 Lead (02/01/2022 10:22 AM CDT)Only the most recent of5 resultswithin the time period is included. P athologist Signature Ventricular Rate 91 BPM MUSE ECG/Min TN Interval 152 ms MUSE QRSD Interval 86 ms MUSE QT Interval 398 ms MUSE QTC Interval 489 ms MUSE P [place] -3 degrees MUSE R [place] 16 degrees MUSE T Wave [place] 5 degrees MUSE Specimen Anatomical Collection Method [...] Goldberg P.A.-C. ECG ORDERABLES Performing Organization Address City/[facility]/ZIP Code Phon e Number MUSE MUSE NA CT chest abdomen pelv w con-Outside CT Body (01/31/2022 7:05 AM CDT) Specimen (Source) Anatomical Collection Method Collection Time Re ceived Time Location / / Volume Laterality 01/31/2022 7:02 AM CDT Narrative [facility] - 01/31/2022 8:37 AM CDT This order has been created and auto-finalized to support the import of outside images. If available, original i nterpretation can be found on the Media Tab in Chart Review, in Document V iewer, or as an image in QREADS. If a re-interpretation or overread is re quired please follow defined workflow. ?? Provider Not In System IMG CT PROCEDURES Performing Organization Address City/[facility]/ZIP Code Phon e Number IIMS IIMS NA (ABNORMAL) Hematocrit (01/28/2022 1:36 PM CDT)Only the most recent of2 results within the time period is included. athologist Signature Hematocrit 22.0 (L) 35.5 - 44.9 01/28/2022 [facility] % 2:10 PM CDT Specimen Anatomical Collection Method Collection Time Receive d Time (Source) Location / / Volume Laterality Blood (Blood, 01/28/2022 1:36 PM 01/29/20 22 2:08 Venous) CDT PM CDT Yue Silver M.D. LAB BLOOD ADD-ON Performing Organization Address City/[facility]/ZIP Code Phon e Number [facility] - [address] [place], [place] [address] [place] [address] [facility] [address] [place] Lower Extremity Veins Bilateral (01/28/2022 [...] man agement can be found on the [employer] [place] site. Link [email or web address] Procedure Note Migue Talavera M.D. - 01/28/2022Form [...] man agement can be found on the [employer] [place] site. Link [email or web address] IMPRESSION: 1. Negative for acute DVT within [...] [facility] [address] [place], [place] [address] [facility] [place] [place] [address] Laboratories-[facility] [address] (ABNORMAL) CBC without Differential (01/28/2022 5:28 AM CDT)Only the most recent of12 resultswithin the time period is included. Patholo gist Method Time Signature Hemoglobin 7.4 [...] M.S. LAB BLOOD ADD-ON Performing Organization Address City/[facility] Phon e Number [facility] - [address] [place], [place] [address] [facility] [place] [place] [address] [address] (ABNORMAL) PT-Fibrinogen (01/26/2022 6:58 PM CDT) P athologist Signature PT-Fibrinogen, 241 (L) 261 - 595 01/27/2022 DTL P mg/dL 9:36 AM CDT Specimen Anatomical Collection Method Collection Time Receive d Time (Source) Location / / Volume Laterality Blood 01/26/2022 6:58 PM 7:12 CDT AM CDT Darrick Santillan LAB BLOOD NON ADD-ON Performing Organization Address City/[facility] Phon e Number [facility] - [address] [place], [place] [address] [facility] [place] [address] Laboratories[address] (ABNORMAL) DIC/ICF Profile (01/26/2022 6:58 PM [...] Its performance characteri stics were determined by [facility] in a manner co nsistent [...] 01/28/20 7:12 Venous) CDT AM CDT Narrative [facility] - 01/27/2022 5:26 PM CDT Specimen Information: Specimen ID: [id number] Specimen Type: Blood Specimen Collection Start Date: 01/27/20 ??6:58 PM Specimen Received Date: 01/27/2022 ??7:1 2 AM Specimen ID: [id number] Specimen Type: Blood Specimen Collection Start Date: 01/27/20 ??6:58 PM Specimen Received Date: 01/27/2022 ??7:1 2 AM Specimen ID: [id number] Specimen Type: Blood Specimen Collection Start Date: 01/27/20 ??6:58 PM Specimen Received Date: 01/27/2022 ??7:1 2 AM Specimen ID: [id number] Specimen Type: Blood Specimen Collection Start Date: 01/27/20 ??6:58 PM Specimen Received Date: 01/27/2022 ??7:1 2 AM Specimen ID: [id number] Specimen Type: Blood Specimen Collection Start Date: 01/27/20 22 ??6:58 PM Specimen Received Date: 01/27/2022 ??7:1 2 AM Darrick Santillan LAB BLOOD NON ADD-ON Performing Organization Address [facility] Phon e Number [facility] - [address] [place], [place] [address] [place] [address] Ltac, Located Within [facility] 200 [facility] (ABNORMAL) Coag Factor X Assay, P (01/26/2022 6:58 PM CDT) P athologist Signature Coag Factor X 29 (L) 70 - 150 % 01/27/2022 DT Assay, P 12:19 PM CDT Comment: ----ADDITIONAL INFORMATION---- This test has been modified from the [place] cecilacturer's instructions. Its performance characteri stics were determined by [facility] in a manner co nsistent with CLIA requirements. This test has not bee n cleared or approved by the U.S. Food and Drug Admin istration. Specimen Anatomical Collection Method Collection Time Receive d Time (Source) Location / / Volume Laterality Blood 01/26/2022 6:58 PM 2 CDT 11:30 AM CDT Darrick Santillan LAB BLOOD ADD-ON Performing Organization Address City/[facility] Phon e Number [facility] - [address] [address] Ltac, Located [facility]-[address] Reptilase Time, Plasma (01/26/2022 6:58 PM CDT) athologist Signature Reptilase Time, 21.0 14.0 - 23.9 01/27/2022 DT P sec 11:03 AM CDT Comment: ----ADDITIONAL INFORMATION---- This test has been modified from the [place] cecilacturer's instructions. Its performance characteri stics were determined by [facility] in a manner co nsistent with CLIA requirements. This test has not bee n cleared or approved by the U.S. Food and Drug Admin istration. Specimen Anatomical Collection Method Collection Time Receive d Time (Source) Location / / Volume Laterality Blood 01/26/2022 6:58 PM 2 7:12 CDT AM CDT Darrick Santillan LAB BLOOD ADD-ON Performing Organization Address [facility] Phon e Number [facility] - [address] [place] [phone] [address] [place], [place] [phone] [place] [address] 200 [facility] (ABNORMAL) Soluble Fibrin Monomer (01/26/2022 6:58 PM CDT) P athologist Signature Soluble Fibrin 165 (H) <=8 mcg/mL 01/27/2022 DTL Monomer 10:57 AM CDT Comment: ----ADDITIONAL INFORMATION---- This test was developed and its performa nce characteristics determined by [facility] in a manner co nsistent with CLIA requirements. This test has not bee n cleared or approved by the U.S. Food and Drug Admin istration. Specimen Anatomical Collection Method Collection Time Receive d Time (Source) Location / / Volume Laterality Blood 01/26/2022 6:58 PM 2 7:12 CDT AM CDT Darrick Santillan LAB BLOOD NON ADD-ON Performing Organization Address City/[facility] Phon e Number [facility] - [address] [place], [place] [address] [place], [place] [phone] [place] [address] APTT Mix 1:1 (01/26/2022 6:58 PM CDT) P athologist Signature APTT Mix 1:1 28 25 - 37 sec 01/27/2022 DTL 11:04 AM CDT Comment: ----ADDITIONAL INFORMATION---- This test has been modified from the man flakitar's instructions. Its performance characteri stics were determined by [facility] in a manner co nsistent with CLIA requirements. This test has not bee n cleared or approved by the U.S. Food and Drug Admin istration. Specimen Anatomical Collection Method Collection Time Receive d Time (Source) Location / / Volume Laterality Blood 01/26/2022 6:58 PM 09/27/202 2 7:12 CDT AM CDT Darrick Santillan LAB BLOOD ADD-ON Performing Organization Address City/State/ZIP Code Phon e Number [facility] - [address] [address] Laboratories-[address] PT Mix 1:1 (01/26/2022 6:58 PM CDT) athologist Signature PT Mix 1:1 11.8 9.4 - 12.5 01/27/2022 DT sec 11:04 AM CDT Comment: ----ADDITIONAL INFORMATION---- This test has been modified from the doug last's instructions. Its performance characteri stics were determined by [facility] in a manner co nsistent with CLIA requirements. This test has not bee n cleared or approved by the U.S. Food and Drug Admin istration. Specimen Anatomical Collection Method Collection Time Receive d Time (Source) Location / / Volume Laterality Blood 01/26/2022 6:58 PM 2 7:12 CDT AM CDT Darrick Santillan LAB BLOOD ADD-ON Performing Organization Address City/[facility]/ZIP Code Phon e Number [facility] - [address] [address] Laboratories-[facility] 200 [facility] Dilute Russells Viper Venom Time (DRVVT) (01/26/2022 6:58 PM CDT) athologist Signature DRVVT Screen 0.85 <1.20 ratio 01/27/2022 DT Ratio 11:04 AM CDT Specimen Anatomical Collection Method Collection Time Receive d Time (Source) Location / / Volume Laterality Blood 01/26/2022 6:58 PM 2 7:12 CDT AM CDT Darrick Santillan LAB BLOOD ADD-ON Performing Organization Address City/[facility]/ZIP Code Phon e Number [facility] - [address] [place] [address] (ABNORMAL) Coagulation Factor XII Activity Assay (01/26/2022 6:58 PM CDT) athologist Signature Coag Factor XII 32 (L) 55 - 180 % 01/27/2022 DTL Assay, P 12:47 PM CDT Comment: ----ADDITIONAL INFORMATION---- This test has been modified from the [facility] instructions. Its performance characteri stics were determined by [facility] in a manner co nsistent with CLIA requirements. This test has not bee n cleared or approved by the U.S. Food and Drug Admin istration. Specimen Anatomical Collection Method Collection Time Receive d Time (Source) Location / / Volume Laterality Blood 01/26/2022 6:58 PM 2 CDT 11:30 AM CDT Darrick Santillan LAB BLOOD ADD-ON Performing Organization Address City/[facility] Phon e Number [facility] - [address] [address] Laboratories-[facility] 200 [facility] (ABNORMAL) Coagulation Factor XI Activity Assay (01/26/2022 6:58 PM CDT) athologist Signature Coag Factor XI 18 (L) 55 - 150 % 01/27/2022 DT Assay, P 12:47 PM CDT Comment: ----ADDITIONAL INFORMATION---- This test has been modified from the [facility] hospital[facility]'s instructions. Its performance characteri stics were determined by [facility] in a manner co nsistent with CLIA requirements. This test has not bee n cleared or approved by the U.S. Food and Drug Admin istration. Specimen Anatomical Collection Method Collection Time Receive d Time (Source) Location / / Volume Laterality Blood 01/26/2022 6:58 PM 2 CDT 11:30 AM CDT Darrick Santillan LAB BLOOD ADD-ON Performing Organization Address City/[facility]/ZIP [facility] [place] Phon e Number [facility] - [address] [address] Laboratories-[facility] 200 [facility] (ABNORMAL) Coagulation Factor IX Activity Assay (01/26/2022 6:58 PM CDT) athologist Signature Coag Factor IX 29 (L) 65 - 140 % 01/27/2022 DTL Assay, P 12:47 PM CDT Comment: ----ADDITIONAL INFORMATION---- This test has been modified from the [facility] instructions. Its performance characteri stics were determined by [facility] in a manner co nsistent with CLIA requirements. This test has not bee n cleared or approved by the U.S. Food and Drug Admin istration. Specimen Anatomical Collection Method Collection Time Receive d Time (Source) Location / / Volume Laterality Blood 01/26/2022 6:58 PM 2 CDT 11:30 AM CDT Darrick Santillan LAB BLOOD ADD-ON Performing Organization Address City/[facility]/ZIP Code Phon e Number [facility] - [address] [address] Ltac, Located Within [facility] 200 [facility] Coagulation Factor VIII Activity Assay (01/26/2022 6:58 PM CDT) athologist Signature Coag Factor 93 55 - 200 % 01/27/2022 [facility] VIII Activity 12:19 PM CDT Assay, P Comment: ----ADDITIONAL INFORMATION---- This test has been modified from the [facility]'s instructions. Its performance characteri stics were determined by [facility] in a manner co nsistent with CLIA requirements. This test has not bee n cleared or approved by the U.S. Food and Drug Admin istration. Specimen Anatomical Collection Method Collection Time Receive d Time (Source) Location / / Volume Laterality Blood 01/26/2022 6:58 PM 2 CDT 11:30 AM CDT Darrick DanielSSuma LAB BLOOD ADD-ON Performing Organization Address City/[facility]/ZIP Code Phon e Number [facility] - [address] [place] [address] [address] [facility] [place] [address] Laboratories-[facility] 200 [facility] (ABNORMAL) Coagulation Factor VII Activity Assay (01/26/2022 6:58 PM CDT) athologist Signature Coag Factor VII 13 (L) 65 - 180 % 01/27/2022 DT Assay, P 12:19 PM CDT Comment: ----ADDITIONAL INFORMATION---- This test has been modified from the [facility] instructions. Its performance characteri stics were determined by [facility] in a manner co nsistent with CLIA requirements. This test has not bee n cleared or approved by the U.S. Food and Drug Admin istration. Specimen Anatomical Collection Method Collection Time Receive d Time (Source) Location / / Volume Laterality Blood 01/26/2022 6:58 PM 2 CDT 11:30 AM CDT Darrick Santillan LAB BLOOD ADD-ON Performing Organization Address City/[facility] Code Phon e Number [facility] - [address] [address] Laboratories-[facility] 200 [facility] (ABNORMAL) Coagulation Factor V Activity Assay (01/26/2022 6:58 PM CDT) athologist Signature Coag Factor V 18 (L) 70 - 165 % 01/27/2022 DT Assay, P 12:19 PM CDT Comment: ----ADDITIONAL INFORMATION---- This test has been modified from the [facility]'s instructions. Its performance characteri stics were determined by [facility] in a manner co nsistent [...] [facility] [address] [place] [address] [place] [address] [facility] [address] [facility] (ABNORMAL) Coagulation Factor II Activity Assay (01/26/2022 6:58 PM CDT) athologist Signature Coag Factor II 28 (L) 75 - 145 % 01/27/2022 DTL Assay, P 12:19 PM CDT Comment: ----ADDITIONAL INFORMATION---- This test has been modified from the man ufacturer's instructions. Its performance characteri stics were determined by [facility] in a manner co nsistent with CLIA requirements. This test has not bee n cleared or approved by the U.S. Food and Drug Admin istration. Specimen Anatomical Collection Method Collection Time Receive d Time (Source) Location / / Volume Laterality Blood 01/26/2022 6:58 PM CDT 11:30 AM CDT Darrick Santillan LAB BLOOD ADD-ON Performing Organization Address City/[facility] Code Phon e Number [address] [address] [facility] [address] [facility] (ABNORMAL) Copper (01/26/2022 6:57 PM CDT) athologist Signature Copper, S 58 (L) 77 - 206 01/27/2022 SDS mcg/dL 11:02 AM CDT Comment: ----ADDITIONAL INFORMATION---- This test was developed and its performa nce characteristics determined by [facility] in a manner consistent with CLIA requirements. This test has not been cleared or approved by the U.S. Meggan d and Drug Administration. Specimen Anatomical Collection Method Collection Time Receive d Time (Source) Location / / Volume Laterality Blood (Blood, 01/26/2022 6:57 PM 01/28/20 7:45 Venous) CDT AM CDT Darrick DanielSSuma LAB BLOOD NON ADD-ON Performing Organization Address City/[facility]/ZIP Code Phon e Number [facility] [address] [place], [place] [address] [place] [address] TA Mueller (01/26/2022 6:57 PM CDT) P athologist Signature Lance Mueller 66 60 - 106 01/27/2022 [facility] mcg/dL 11:02 AM CDT Comment: ----ADDITIONAL INFORMATION---- This test was developed and its performa nce characteristics determined by [facility] in a manner consistent with CLIA requirements. This test has not been cleared or approved by the U.[place]. Meggan d and Drug Administration. Specimen Anatomical Collection Method Collection Time Receive d Time (Source) Location / / Volume Laterality Blood (Blood, 01/26/2022 6:57 PM 01/28/20 7:45 Venous) CDT AM CDT Darrick Santillan LAB BLOOD NON ADD-ON Performing Organization Address City/State/ZIP Code Phon e Number [address] [place], [place] [address] [place] [address] [place] LDA ANE ENDOTRACHEAL AIRWAY (01/26/2022 3:51 PM CDT) Narrative Gildardo Hickey APRN PLANNING MANAGEMENT IT SPECIALIST, DNAP - 3:51 PM CDT Gildardo Hickey [...] ?? Airway event: no complications Gildardo Hickey INSULATION HOSEMAN, PLANNING MANAGEMENT IT SPECIALIST, DNAP ANESTHESIA ORDERABLES Upper GI endoscopy-Gastroenterology Image [...] Organization Address City/State/ZIP Code Phon e Number IIME IIMS NA Upper GI Endoscopy (01/26/2022 3:18 PM CDT) Specimen (Source) Anatomical Collection Method Collection Time Re ceived Time Location / / Volume Laterality 01/26/2022 3:18 PM CDT Impressions [facility] - 01/26/2022 10:50 PM CDT Post-op Diagnoses: ? - Large (> 5 mm) esophageal varic es with no bleeding and no stigmata of ? recent bleeding. Banded x 6. ? - Portal hypertensive gastropathy (non-bleeding). ? - No specimens collected. Narrative [facility] - 01/26/2022 10:50 PM CDT Otto 6 GI GI Patient Name: Catia Carias Date of : 1990 Age: 31 Gender: Female Procedure Date: 01/26/2022 Procedure: ? Upper GI endoscopy Providers: ? Andreas Price MD, Eulogio Donald MD ? (Elicia llow) Referring Provider: ?Huang Diamond Pre-op Diagnoses: [...] No immedia te complications. 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 pro cedure, including non-judd portions. Andreas Price MD 01/26/2022 10:50:15 PM This report has been signed electronical ly. Number of Addenda: 0 Huang Diamond M.D. GI PROCEDURE ORDERABLES Performing Organization Address City/[facility]/ZIP Code Phon e Number [facility] NA Transfuse Fresh Frozen Plasma :INR >2: Invasive proc scheduled; 180 mL/hr (01/26/2022 11:20 AM CDT)Only the most recent of2 resultswithin the time period is included. Darrick Santoyo.SSuma BLOOD TRANSFUSION ORDERABLES (ABNORMAL) Hemoglobin (01/26/2022 11:16 [...] M.S. LAB BLOOD ADD-ON Performing Organization Address City/[facility]/ZIP Code Phon e Number [facility] - [address] [place], [place] [address] [facility] [place] [address] Laboratories-[facility] [address] Transfuse Emergency Released Red Blood Cells (Uncrossmatched) (01/26/2022 9:59 AM CDT) Darrick CheryB.SSuma BLOOD TRANSFUSION ORDERABLES Type and Screen (with reflex Antibody ID) (01/26/2022 4:48 AM CDT)Only the most recent of5 resultswithin the time period is included. Patholo gist Method Time Signature ABORh B Pos Not 01/26/2022 STRM applicable 9:18 AM CDT Antibody Negative Negative 01/26/2022 STRM Screen 9:34 AM CDT Type & Screen 01/29/2022 01/26/2022 STRM Expiration 23:59 9:18 AM CDT Testing [place] DEFAULT 01/26/2022 STRM Location 8:55 AM CDT Specimen Anatomical Collection Method Collection Time Receive d Time (Source) Location / / Volume Laterality Blood (Blood, 01/26/2022 4:48 AM 01/27/20 8:55 Venous) CDT AM CDT Darrick Santillan LAB BLOOD BANK TEST ORDERABL ES Performing Organization Address [facility] Phon e Number [place] [address] [address] [place], [place] [address] [address] [place] [address] Ltac, Located Within [facility] [address] [facility] HIV-1/-2 Ag and Ab Screen, Plasma (01/25/2022 3:36 PM CDT) athologist Signature HIV-1/-2 Ag Negative Negative 01/26/2022 [facility] and Ab Screen, 11:53 AM CDT P [...] - BLOOD ORD ERABLES Performing Organization Address City/[facility]/ZIP [facility] [place] Phon e Number [facility] [address] [place], [place] [address] [place] [address] [facility] [address] [place] Transfuse Red Blood Cells : [...] [facility] - [address] [place], [place] [address] [facility] [place] [address] Laboratories-[facility] [address] (ABNORMAL) SPSMA Result (01/25/2022 5:35 AM CDT)Only [...] CDT Manual Absolute 2.96 1.56 - 01/25/2022 DHPM Neutrophil Count 6.45 7:03 AM CDT x10(9)/L Comment: ----ADDITIONAL INFORMATION---- The manual absolute neutrophil count is derived from a manual differential count and therefore is not exactly comparable to the automated absolute armida trophil count. Interpretation SeeComment 01/25/2022 7:03 AM CDT D HPM Comment: No morphologic features of hemolysis are seen. No schistocytes are seen. No platelet clumping. Reviewed by: Ruth 01/25/2022 7:03 AM CDT DHPM Specimen Anatomical Collection Method Collection Time Receive d Time (Source) Location / / Volume Laterality Blood (Blood, 01/25/2022 5:35 AM 01/26/20 5:57 Venous) CDT AM CDT Darrick DanielS. LAB BLOOD ADD-ON Performing Organization Address City/State/ZIP Code Phon e Number [facility] - 200 [place], [place] [address] LD (Lactate Dehydrogenase) (01/25/2022 5:35 AM CDT)Only the most recent of3 resultswithin the time period is included. [facility] LD 197 122 - 222 01/25/2022 DTL U/L 6:35 AM CDT Specimen Anatomical Collection Method Collection Time Receive d Time (Source) Location / / Volume Laterality Blood (Blood, 01/25/2022 5:35 AM 01/26/20 22 6:18 Venous) CDT AM CDT Darrick DanielSSuma LAB BLOOD NON ADD-ON Performing Organization Address City/[facility]/ZIP Code Phon e Number [facility] - [address] [place] [address] 05 [facility] DTL [address] (ABNORMAL) Haptoglobin (01/25/2022 5:35 AM CDT)Only the most recent of3 results within the time period is included. [facility] Haptoglobin, S <14 (L) 30 - 200 01/26/2022 [facility] mg/dL 10:51 AM CDT Specimen Anatomical Collection Method Collection Time Receive d Time (Source) Location / / Volume Laterality Blood 01/25/2022 5:35 AM 2 6:58 CDT AM CDT Darrick DanielSSuma LAB BLOOD ADD-ON Performing Organization Address City/[facility]/ZIP Code Phon e Number [facility] [address] [place], [place] [address] [place] [address] [facility] [address] [place] (ABNORMAL) Reticulocytes (01/25/2022 5:30 AM CDT)Only the most recent of2 resultswithin the time period is included. Patholo gist Method Time Signature Reticulocytes, B 6.67 (H) 0.60 - 01/25/2022 DTL 2.71 % 9:18 AM CDT Absolute 114.1 (H) 30.4 - 01/25/2022 DTL Reticulocyte 110.9 9:18 AM CDT x10(9)/L Specimen Anatomical Collection Method Collection Time Receive d Time (Source) Location / / Volume Laterality Blood (Blood, 01/25/2022 5:30 AM 01/26/20 22 9:03 Venous) CDT AM CDT Darrick DanielSSuma LAB BLOOD ADD-ON Performing Organization Address [facility] Phon e Number [facility] - [address] DTL [address] Direct Antiglobulin Test (Poly) (01/25/2022 5:30 AM CDT)Only the most recent of2 resultswithin the time period is included. [facility] Method Time Signature Direct Negative Negative 01/25/2022 STR Antiglobulin 1:15 PM CDT Test, Polyspecific Specimen Anatomical Collection Method Collection Time Receive d Time (Source) Location / / Volume Laterality Blood (Blood, 01/25/2022 5:30 AM 01/26/20 Venous) CDT 11:46 AM CDT Darrick CheryB.SSuma LAB BLOOD BANK TEST ORDERABL ES Performing Organization Address City/[facility] Phon e Number [facility] - [address] [place] [address] [facility] STRM [address] Magnesium (01/25/2022 5:30 AM CDT)Only the most recent of9 resultswithin the time period is included. P athologist Signature Magnesium, S 1.9 1.7 - 2.3 01/25/2022 DTL mg/dL 5:21 PM CDT Specimen Anatomical Collection Method Collection Time Receive d Time (Source) Location / / Volume Laterality Blood (Blood, 01/25/2022 5:30 AM 01/26/20 22 5:06 Venous) CDT PM CDT Darrick Santillan LAB BLOOD ADD-ON Performing Organization Address City/[facility]/ZIP Code Phon e Number [facility] - [address] Sodium, Random, Urine (01/24/2022 3:32 PM CDT) [facility] Sodium, Random, <10 mmol/L 01/24/2022 DT U 4:50 PM CDT Comment: ----REFERENCE VALUE---- [...] M.D. LAB URINE ORDERABLES Performing Organization Address City/[facility]/ZIP Code Phon e Number [facility] - [address] Creatinine, Random, Urine (01/24/2022 3:32 PM CDT) [facility] Creatinine, 60 16 - 326 01/24/2022 DT Random, U mg/dL 4:50 PM CDT Specimen Anatomical Collection Method Collection Time Receive d Time (Source) Location / / Volume Laterality Urine (Urine, 01/24/2022 3:32 PM 01/25/20 22 3:59 Midstream) CDT PM CDT Yue Silver M.D. LAB URINE ORDERABLES Performing Organization Address City/[facility]/ZIP [facility] [place] Phon e Number [facility] - [address] (ABNORMAL) Bilirubin, Total (01/24/2022 1:35 PM CDT)Only the most recent of2 resultswithin the time period is included. athologist Signature Bilirubin, 11.9 (H) <=1.2 01/24/2022 DTL Total, P mg/dL 2:33 PM CDT Specimen Anatomical Collection Method Collection Time Receive d Time (Source) Location / / Volume Laterality Blood 01/24/2022 1:35 PM 2 1:35 CDT PM CDT Darrick DanielSSuma LAB BLOOD ADD-ON Performing Organization Address City/[facility] Phon e Number [facility] - [address] (ABNORMAL) Bilirubin, Direct (01/24/2022 5:17 AM CDT) athologist Signature Bilirubin, 5.1 (H) 0.0 - 0.3 01/24/2022 DTL Direct, S mg/dL 2:40 PM CDT Specimen Anatomical Collection Method Collection Time Receive d Time (Source) Location / / Volume Laterality Blood (Blood, 01/24/2022 5:17 AM 01/25/20 22 1:52 Venous) CDT PM CDT Darrick DanielSSuma LAB BLOOD ADD-ON Performing Organization Address City/[facility] Phon e Number [facility] - [address] Upper GI Endoscopy (01/23/2022 3:35 PM CDT) Specimen (Source) Anatomical Collection Method Collection Time Re ceived Time Location / / Volume Laterality 01/23/2022 3:35 PM CDT Impressions [facility] - 01/23/2022 4:08 PM CDT Post-op [...] examination. ? - No specimens collected. Narrative [facility] - 01/23/2022 4:08 PM CDT Otto [...] Organization Address City/State/ZIP Code Phon e Number [facility] NA Protein, Total, Body Fluid (01/21/2022 10:00 AM CDT)Only the most recent of3 resultswithin the time period is included. P athologist Signature Protein, 0.5 See Comment [...] ical findings. All other fluids refer to [email or web address] for further inter pretive information. This test has been modified from the cafeteria attendant's instructions. Its perform ance characteristics were determined by [facility] in a manner consistent with CLIA require [...] AND STOOLS O JOSE Performing Organization Address City/[facility] Phon e Number [facility] - [address] [place] [address] 05 [place], [place] [phone] [place] [address] Bacterial Culture, Aerobic + Susc (01/21/2022 10:00 AM CDT)Only the most recent of4 resultswithin the time period is included. Patholo gist Method Time Signature Bacterial No growth 01/26/2022 DTL Culture, after 5 7:48 AM CDT Aerobic + Susc days of incubation. Specimen Anatomical Collection Method Collection Time Receive d Time (Source) Location / / Volume Laterality Fluid 01/21/2022 10:00 01/21/2022 (Peritoneal AM CDT 11:52 AM CDT Fluid) Comment: Specimen Source Site: Fluid Narrative [facility] - [facility] - 01/26/2022 7:48 AM CDT Bacterial Culture: Received Bactec aerob ic and Bactec anaerobic bottles Matthew Becerril M.D. LAB MICROBIOLOGY - GENERAL O JOSE Performing Organization Address City/[facility] Code Phon e Number [facility] - 200 [place], [place] [address] [place], [place] [id number] [place] [address] (ABNORMAL) Comprehensive Metabolic Panel (01/21/2022 7:25 [...] M.D. LAB BLOOD ADD-ON Performing Organization Address City/[facility]/ZIP Code Phon e Number [facility] - [address] [place], [place] [address] [place], [place] [phone] [place] [address] (ABNORMAL) Iron and Total Iron-Binding Capacity (01/21/2022 [...] [facility] [address] [place], [place] [address] [place] [address] Laboratories-[address] (ABNORMAL) Ferritin (01/21/2022 7:21 AM CDT) athologist Signature Ferritin, S 564 (H) 11 - 307 01/22/2022 DTL mcg/L 5:18 PM CDT Specimen Anatomical Collection Method Collection Time Receive d Time (Source) Location / / Volume Laterality Blood (Blood, 01/21/2022 7:21 AM 01/23/20 4:23 Venous) CDT PM CDT Sree Little M.D. LAB BLOOD ADD-ON Performing Organization Address City/[facility]/ZIP Code Phon e Number [facility] - [address] [place], [place] [address] [address] [place] [address] Lipase (01/21/2022 2:40 AM CDT)Only the most recent of4 resultswithin the time period is included. athologist Signature Lipase, S 26 13 - 60 U/L 01/21/2022 3:23 DTL AM CDT Specimen Anatomical Collection Method Collection Time Receive d Time (Source) Location / / Volume Laterality Blood (Blood, 01/21/2022 2:40 AM 01/22/20 3:05 Venous) CDT AM CDT Cody Knight M.D. LAB BLOOD ADD-ON Performing Organization Address [facility] Phon e Number [facility] - [address] [place] [address] 05 [facility] [place] [place] [address] Microscopic Automated (01/20/2022 8:57 PM CDT)Only the most recent of2 results within the time period is included. athologist Signature Microscopy Normal 01/20/2022 DTL 10:03 [...] M.D. LAB URINE ORDERABLES Performing Organization Address [facility] Phon e Number [facility] - [address] [place] [address] 05 [facility] [place] [address] Bacterial Culture, Aerobic + Susc, Urine (01/20/2022 8:57 PM CDT)Only the most recent of5 resultswithin the time period is included. [facility] gist Method Time Signature Urine Culture No growth 01/22/2022 DT after 1 day 6:31 AM CDT of incubation. Specimen Anatomical Collection Method Collection Time Receive d Time (Source) Location / / Volume Laterality Urine (Urine, 01/20/2022 8:57 PM 01/21/20 Straight CDT 10:31 PM CDT Catheter) Comment: Specimen Source Site: Urine Cody Knight M.D. LAB MICROBIOLOGY - GENERAL O RDERABLES Performing Organization Address City/[facility]/ZIP [facility] Phon e Number [facility] - 200 [place], [place] [address] [place] [address] Laboratories-[address] pH, Urine (01/20/2022 8:57 PM CDT)Only the most recent of2 resultswithin the time period is included. [facility] pH, U 5.5 4.5 - 8.0 01/20/2022 9:48 DTL PM CDT Specimen Anatomical Collection Method Collection Time Receive d Time (Source) Location / / Volume Laterality Urine 01/20/2022 8:57 PM 2 9:23 CDT PM CDT Cody Knight M.D. LAB URINE ORDERABLES Performing Organization Address City/[facility] Phon e Number [facility] - 200 [place], [place] [address] [place] [id number] [place] [address] Osmolality, Urine (01/20/2022 8:57 PM CDT)Only the most recent of2 resultswithin the time period is included. [facility] Osmolality, U 401 150 - 1150 01/20/2022 DT mOsm/kg 9:48 PM CDT Specimen Anatomical Collection Method Collection Time Receive d Time (Source) Location / / Volume Laterality Urine 01/20/2022 8:57 PM 2 9:23 CDT PM CDT Cody Knight M.D. LAB URINE ORDERABLES Performing Organization Address City/[facility] Phon e Number [facility] [facility] - 200 [place], [place] [address] hCG (Human Chorionic Gonadotropin), Quantitative, (01/20/2022 8:49 PM CDT)Only the most recent of5 resultswithin the time period is included. [facility] HCG, 0.5 <5 IU/L 01/20/2022 [facility] Quantitative, 9:19 PM CDT , P Specimen Anatomical Collection Method Collection Time Receive d Time (Source) Location / / Volume Laterality Blood (Blood, 01/20/2022 8:49 PM 01/21/20 22 9:01 Venous) CDT PM CDT Cody Knight M.D. LAB BLOOD ADD-ON Performing Organization Address City/State/[facility] Code Phon e Number [facility] - [address] [facility], [place] [id number] [place] [address] Drug Screen Urine (01/10/2022 1:46 PM CDT)Only [...] M.D. LAB URINE ORDERABLES Performing Organization Address City/State/[facility] Code Phon e Number [facility] - [address] [place] [address] 05 [facility] [place] [address] [place] Liver with Liver Doppler (01/10/2022 [...] (LD), Body Fluid (01/10/2022 9:51 AM CDT) [facility] Method Time Signature Lactate 41 See Comment [...] clinical findings. All other fluids refer to www.[employer] labs.com for further interpretive information. This test has been modified from the man ufacturer's instructions. Its performance characteristics were det ermined by [facility] in a manner consistent with CLIA requirements [...] AND STOOLS O RDERABLES Performing Organization Address City/[facility]/ZIP Code Phon e Number [facility] - [address] [place], [place] [address] [place] [address] 200 [facility] Glucose, Body Fluid (01/10/2022 9:51 AM CDT) [...] Its performance characteri stics were determined by [facility] in a manner co nsistent [...] AND STOOLS O JOSE Performing Organization Address City/[facility]/ZIP Code Phon e Number [facility] - [address] [place] [address] 05 [facility] [place], [place] [address] [place] [address] [facility] Amylase, Body Fluid (01/10/2022 9:51 AM CDT) [...] atio <1.0. All other fluids refer to www.[employer] for further inter pretive information. This test has been modified from the man ufacturer's instructions. Its performance characteri stics were determined by [facility] in a manner consistent wi CLIA requirements. [...] [facility] [address] [place], [place] [address] [facility] [place] [address] [facility] [address] Albumin, Body Fluid [...] process. ?? All other fluids refer to www.[employer] for further interpretive information. This t est has been modified from the cafeteria attendant's instruc tions. Its performance characteristics were determi foreign by [facility] in a manner consistent with CLIA require [...] [facility] - [address] [place], [place] [address] [facility] [place] [place] [address] [facility] [address] SW DX Chest Portable 1 View (01/09/2022 4:34 [...] POC, V Asymptomatic (01/09/2022 1:45 PM CDT) [facility] Method Time Signature SARS Undetected Undetected 01/09/2022 [facility] Coronavirus-2 2:05 PM CDT , RNA, Rapid POC, V Comment: Negative for SARS-CoV-2. The [employer] COVID-19 test is a molecular jonathan t for SARS-CoV-2, the virus that causes COVID- 19. A Negative result means that the [employer] COV ID-19 test did not detect SARS-CoV-2 virus in your sample. [employer] COVID-19 test uses the An[employer] nitoring System. This test has received Emergency Use Authorization (EUA) by the U.S. Food and Drug Administration (FDA) and is used per man ufacturer instructions. Performance characteristic s were verified by [facility] in a manner consistent with CLIA requirements. Fact sheets for this Emerg ency Use Authorization (EUA) can be found at the following links: Providers: https://[employer]/documentation/prov iders.pdf Patients: https://[employer]/documentation/deshawn ents.pdf SARS Coronavirus 2, Source Nasopharynx DEFAULT 01/09/2022 2:05 PM CDT [facility] Specimen Anatomical Collection Method Collection Time Receive d Time (Source) Location / / Volume Laterality Varies 01/09/2022 1:45 PM 2 1:45 (Nasopharynx) CDT PM CDT Reese Reyes M.D. LAB MICROBIOLOGY - GENERAL O RDERABLES Performing Organization Address City/State/ZIP Code Phon e Number PERFORMING LABS, REF [place] [address] INTERFACE Ref Interface [address] [facility] DTLR Performing Labs, [place] [address] Interface 200 [facility] Bacteria / Raudel Culture, Blood # 2 (01/09/2022 10:11 AM CDT)Only the most recent of6 resultswithin the time period is included. [facility] MSI Method Time Signature Bacteria/Adriana No growth 01/14/2022 DTL da Culture, after 5 11:02 AM CDT Blood days of incubation. Specimen (Source) Anatomical Collection Method Collection Time Re ceived Time Location / / Volume Laterality Blood (Blood, 01/09/2022 10:11 01/09/2022 Peripheral Draw) AM CDT 10:32 AM CD T Comment: Specimen Source Site: Blood Narrative [facility] - 01/14/2022 11:02 AM CDT Received Bactec Peds bottle Wilfredo Vigil P.A.-C. LAB MICROBIOLOGY - GENERAL O RDERABLES Performing Organization Address City/[facility]/ZIP [facility] Phon e Number [facility] - [address] [place], [place] [address] [facility] [place] [address] Ltac, Located Within [facility] Glucose, POCT (01/09/2022 10:04 AM CDT)Only [...] P.A.-C. LAB POCT ORDERABLES-MANUAL Performing Organization Address City/[facility] Code Phon e Number [facility] - [address] [place], [place] [address] [facility] [place] [address] Ltac, Located Within [facility] Paracentesis (12/21/2021 2:48 PM CDT) Narrative [...] (THC) Confirmation, Urine (12/15/2021 5:58 PM CDT) [facility] Method Time Signature Carboxy-THC- by 19 Cutoff: 12/18/2021 [facility] GC/MS 3.0 ng/mL 6:38 AM CDT Carboxy-THC Positive. 12/18/2021 [facility] Interpretation 6:38 AM CDT Comment: ----ADDITIONAL INFORMATION---- This report is intended for use in clini ada monitoring and management of patients. ??It is not intended for use i n employment-related testing. This test was developed and its performa nce characteristics determined by [facility] in a manner consistent with [...] e Number [facility] [address] [place] [address]carlos[address] [place] [address] Laboratory Medicine and Pathology [address] [place] (ABNORMAL) Drug Abuse Survey with Confirmation, Urine (12/15/2021 5:58 PM CDT) [facility] Method Time Signature Alcohol Negative Cutoff: 10 [...] e Number [facility] [address] [place] [address] 05 [facility] [place] [address] Laboratory Medicine and Pathology [address] CHAPPELL Ethyl Glucuronide Confirmation, Random, Urine (12/15/2021 5:51 PM CDT) [facility] Method Time Signature Ethyl Glucuronide Negative Cutoff: 12/17/2021 [facility] Confirmation, U 250 ng/mL 10:34 AM CDT Ethyl Sulfate Negative Cutoff: 12/17/2021 [facility] ng/mL 10:34 AM CDT Ethyl Gluc/Sulfate Negative. 12/17/2021 [facility] Interpretation 10:34 AM CDT Comment: ----ADDITIONAL INFORMATION---- This report is intended for use in clini ada monitoring and management of patients. ??It is not intended for use i n employment-related testing. This test was developed and its performa nce characteristics determined by [facility] in a manner consistent with [...] e Number [facility] [address] [place], [place] [address] [facility] [place] [address] Laboratory Medicine and Pathology [address] [place] [address] Dr. CHAPPELL Phosphatidylethanol (Peth), whole blood- Sent Out Lab (12/15/2021 5:39 PM CDT) Component Value Ref Range Test Analysis Performed Pathologis t Method Time At Signature Phosphatidylethanol NEGATIVE NEGATIVE 12/26/2021 [facility] (PEth) ng/mL 1:01 PM CDT Comment: Analyzed compound: PEth 16:0/18:1. ? 3-efrbgpnia-6-owundc-og-jokbtqw-3 -phosphoethanol. ? Analysis performed by Liquid Chromatogra [...] Organization Address City/State/ZIP Code Phon e Number [employer]. [address] [place] [address] 2 [facility] [employer], [place]. [place], [place] [id number] [place] [address] Paracentesis (12/04/2021 9:57 AM CDT) Narrative Blanquita [...] [facility] - [address] [place], [place] [address] [place] [address] [facility] [address] (ABNORMAL) Blood Gas with Coox, Venous (12/04/2021 7:30 AM CDT) [facility] gist Method Time Signature Venous pO2 [...] LAB BLOOD NON ADD-ON Performing Organization Address City/[facility]/ZIP Code Phon e Number [facility] - [address] [place], [place] [address] [place] [address] Phosphorus Inorganic (11/25/2021 6:55 AM CDT)Only the most recent of7 results within the time period is included. P athologist Signature Phosphorus 3.2 2.5 - 4.5 11/25/2021 DTL (Inorganic), S mg/dL 7:54 AM CDT Specimen Anatomical Collection Method Collection Time Receive d Time (Source) Location / / Volume Laterality Blood (Blood, 11/25/2021 6:55 AM 11/26/19 22 7:33 Venous) CDT AM CDT Dina Campa M.D. LAB BLOOD ADD-ON Performing Organization Address City/State/ZIP Code Phon e Number [facility] - 200 [place], [place] [address] [facility] [place] [address] [facility] 200 [facility] DX Abdomen Portable Anterior Posterior 1 [...] IMG DIAGNOSTIC IMAGING PROCE DURES Pernicious Anemia [place] (11/21/2021 11:25 AM CDT) P athologist Signature Vitamin B12 621 180 - 914 11/21/2021 [facility] Assay, S ng/L 6:21 PM CDT Specimen Anatomical Collection Method Collection Time Receive d Time (Source) Location / / Volume Laterality Blood (Blood, 11/21/2021 11:25 11/21/2021 4:05 Venous) AM CDT PM CDT Dina Campa M.D. LAB BLOOD NON ADD-ON Performing Organization Address City/[facility]/ZIP Code Phon e Number [facility] [address] [place] [address] Laboratory Medicine and Pathology [address] [place] [address] Dr. CHAPPELL Copper, 24 Hour, Urine (11/21/2021 11:00 AM CDT) athologist Signature Copper, 24 Hr, U 19 9 - 71 11/24/2021 [facility] mcg/24 h 10:42 AM CDT Collection 24 h 11/24/2021 [facility] Duration 10:42 AM CDT Volume 815 mL 11/24/2021 [facility] 10:42 AM CDT Comment: ----ADDITIONAL INFORMATION---- This test was developed and its performa nce characteristics determined by [facility] in a manner consistent with CLIA requirements. This test has not been cleared or approved by the U.S. Meggan d and Drug Administration. Specimen Anatomical Collection Method Collection Time Receive d Time (Source) Location / / Volume Laterality Urine (Urine, 24 11/21/2021 11:00 022 3:36 Hours) AM CDT PM CDT Shannan Rand M.D. LAB URINE ORDERABLES Performing Organization Address City/[facility]/ZIP Code Phon e Number [address] [place] [address] [place] [address] Laboratory Medicine and Pathology [address] [place] [address] Dr. CHAPPELL (ABNORMAL) Ceruloplasmin (11/20/2021 6:38 AM [...] at or the on-line test catalog at [employer] for m ore information. Specimen Anatomical Collection Method Collection Time Receive d Time (Source) Location / / Volume Laterality Blood (Blood, 11/20/2021 6:38 AM 11/21/19 22 8:33 Venous) CDT AM CDT Gerard Andino M.D., M.S. LAB BLOOD ADD-ON Performing Organization Address [facility] Phon e Number [facility] - [address] Sedimentation Rate (11/19/2021 2:55 PM CDT) [...] M.S. LAB BLOOD ADD-ON Performing Organization Address [facility] Phon e Number [facility] - [address] CRP (C-Reactive Protein) (11/19/2021 2:55 PM [...] M.S. LAB BLOOD ADD-ON Performing Organization Address City/[facility]/ZIP Code Phon e Number [facility] - [address] [place], [place] [address] [facility] [place] [address] [facility] [address] EEG prolonged [...] Rodriguez M.D. NEUROLOGY ORDERABLES Performing Organization Address City/[facility]/ZIP Code Phon e Number MMODAL MMODAL NA [...] [facility] - [address] [place] [address] 05 [facility] [place] [place] [address] [facility] 200 [facility] SARS Coronavirus 2, Antigen, Rapid, V Asymptomatic [...] us ing the SARS-CoV-2 Ag Test from [employer], which has received Emergency U se Authorization (EUA) by the U.S. Food and Drug Administration. Fact sheets for this Emergency Use Autho rization (EUA) assay can be found at the following links: For Healthcare Providers: https://www.[employer]/assets/images/n ew/pdf/mma-lmu-ufft-zxiwn-wqwvpbye-m mpj-jur-0-ag-test.pdf?v=4 For Patients: https://www.[employer]/assets/images/n ew/pdf/kal-frohnee-mtga-sheet-lumira ok-idyz-qqt-6-eabzyoo-tsjh.pdf?v=5 SARS CoV-2, Antigen, Rapid, Swab, Nasopharynx 10/31 9:54 AM CDT [facility] Source Specimen Anatomical Collection Method Collection Time Receive d Time (Source) Location / / Volume Laterality Varies 11/13/2021 9:45 AM 9:54 (Nasopharynx) CDT AM CDT Gerard Andino M.D., M.S. LAB MICROBIOLOGY - GENERAL O RDERABLES Performing Organization Address City/State/ZIP Code Phon e Number [facility] - [address] [place], [place] [address] [facility] [place] [address] [facility] [address] Head without IV [...] HEAD WITHOUT IV CONTRAST COMPARISON: Compared to [facility] head CT fro 03/21/2021. FINDINGS: Beam [...] HEAD WITHOUT IV CONTRAST COMPARISON: Compared to [facility] head CT fro 03/21/2021. FINDINGS: Beam [...] Rapid, V Symptomatic (11/12/2021 3:44 AM CDT) [facility] Method Time Signature SARS CoV-2, Detected (A) Undetected 11/12/2021 [facility] PCR, Rapid, V 4:20 AM CDT Comment: ----ADDITIONAL INFORMATION---- This RT-PCR test was performed using the Daniel SARS-CoV-2 and Influenza A/B Reagent assay from [employer], which has received Emergency Use Authori zation(EUA) by the U.S. Food and Drug Administration . Fact sheets for this Emergency Use Autho rization (EUA) assay can be found at the following link s: For Healthcare Providers: https://www.fda.gov/media/168977/downloa d For Patients: https://www.fda.gov/media/347421/downloa d SARS Coronavirus 2, Source, Rapid Swab, Nasopharynx 11/12/2021 3:48 AM CDT [facility] Specimen Anatomical Collection Method Collection Time Receive d Time (Source) Location / / Volume Laterality Varies 11/12/2021 3:44 AM 3:48 (Nasopharynx) CDT AM CDT Rosaura [place] M.D., M.P.H. LAB MICROBIOLOGY - GENERA L ORDERABLES Performing Organization Address City/State/ZIP Code Phon e Number [facility] - [address] [place], [place] [address] [place] [address] [facility] [address] Peripheral Venous Access [...] LAB BLOOD NON ADD-ON Performing Organization Address [facility] Phon e Number [facility] - [address] [place] [address] Venous Blood Gas and Electrolytes, POCT [...] POCT ORDERABLES - DEVICE Performing Organization Address [facility] Phon e Number [facility] - 200 [place], [place] [address] [facility] [place] [address] (ABNORMAL) APTT (Activated Partial Thromboplastin Time) [...] M.D. LAB BLOOD ADD-ON Performing Organization Address [facility] Phon e Number [facility] - [address] [place] [address] STMA [place] [id number] S-TSH (Thyroid-Stimulating Hormone - Sensitive) (11/12/2021 [...] [facility] [address] [place], [place] [address] [facility] [place] [address] [facility] [address] [place] Liver Doppler [...] LI-RADS is supported and endorsed by the [employer]. More information can be found on the followin g link: https://www.acr.org/Clinical-Resources/Pgbrigqil-ryi-Nyct-Systems/LI-RADS/Ultras acyx-TQ-JLNV-v2017 Procedure Note Rex Jenkins M.D. - 11/10/2021 [...] LI-RADS is supported and endorsed by the [employer]. More information can be found on the followin g link: https://www.acr.org/Clinical-Resources/Dpwumsldq-juo-Arhm-Systems/LI-RADS/Ultras nsem-EM-OKJG-v2017 IMPRESSION: 1. Cirrhotic morphology of the liver wit hout suspicious focal hepatic lesions. LI-RADS 1B. 2. Hepatic arterial and venous vasculatu re is patent with antegrade flow. Elevated main hepatic artery velocities. 3. Moderate volume ascites. Dina COOLG US PROCEDURES AFP (Alpha-Fetoprotein), Tumor Marker (11/09/2021 7:09 PM CDT) athologist Signature Alpha-Fetoprote 6.4 ng/mL 11/10/2021 [facility] in, Tumor 3:04 PM CDT Marker, S Comment: ----REFERENCE VALUE---- <8.4 Reference values are for non- subjects only; production of AFP elevates values in women. ----ADDITIONAL INFORMATION---- In this Richie Arcola assay AFP concen trations are <8.4 ng/mL [...] method is an immunoenzymatic assay manufactured by [employer] and is tested on the [employer] DxI 800. Values obtained with different [...] e Number [facility] [address] [place], [place] [address] SUPPORT CENTER [facility] [place] [address] Laboratory Medicine and Pathology [address] CHAPPELL from Last 3 Months Insurance Payer Benefit Plan / Subscriber ID Effective Phone Address T ype Group Dates [facility] [facility] C[facility] [id number] 2018-Prese [address] [address] Medicaid O BLUE SHIELD RESTRICTED PLAN nt [facility] [id number] [address] [facility] [address] [place] [phone] Advance Directives For more information, please contact: [phone] Latest Code Status on File Code Status Date Activated Date Inactivated Comments Full Code 02/02/2022 5:56 AM 02/03/2022 8:18 PM Full Code: Discussed Full Code 01/21/2022 6:06 AM 01/29/2022 2:06 [...] Not Discussed Due to: Not medically appropriate Care Teams Insecticide Maker Relationship Specialty Start Date End Date Ana Red P.A.-C. PCP - General Internal Medicine 12/01/[address] [place] [address] [place] [address] [facility] [place] [facility] 08/25/21 Ervin Schroeder MD Referring Provider Family Medicine 03/24/[address] [place] [address] [place] [address]
--- OUTSIDE RECORDS SUMMARY | 2022-02-04 23:07 | XMS_ITS | Encounter Summary ---
:1990 Author Organization [facility] Address [address] [place] [address] Care Team Providers Name Role Phone Ana Red P.A.-C. Primary Care Provider [phone] Encounter Details Date Type Department Care Team Description 01/30/2022 Orders Only RST HIM GraciaJeanSara R, [address] [place] [phone] [place] [phone] (Wo rk) Social History Tobacco Use Types [...] do you attend caodaism or Never 2021 pentecostal services? Do you belong to any clubs or No 07/17/2021 organizations such as caodaism groups, unions, fraThirsty or athletic groups, or school groups? 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 Matthew 2 Encounter Tyrell Rodriguez M.D. [address] [place] [phone] Hospital Gastroenterology and Queenie Matthew 2 Encounter Hepatology Tyrell Rodriguez M.D. [address] [place] [address] [phone] Surgery Gastroenterology and Queenie Matthew ESOPHAG OGASTRODUODENOSCOPY 2 Hepatology Tyrell Rodriguez M.D. [address] [place] [phone] Telemedicine Transplant 2 Lab Laboratory Medicine Olinda Frazier M.D., Ph.D. [address] [place] [phone] Lab Laboratory Medicine Olinda Frazier M.D., Ph.D. [address] [place] [phone] Office Visit Transplant Karin, Olinda Gannon M.D., Ph.D. [address] [place] [phone] Office Visit Community Internal Deanovic, 2 Medicine Carlotta PerezCSuma [address] [place] [phone] Appointment Radiology Matthew Jerome 2 Y, M.B.B.SSuma, Lilian [address] [place] [phone] Appointment Gastroenterology and Adrianne, 2 Hepatology Yue Burciaga M.D. [address] [place] [phone] Office Visit Gastroenterology and Matthew Jerome 2 Hepatology Jennifer M.B.B.SLilian Moise [address] [place] [phone] Appointment Radiology Matthew Jerome 2 Y M.B.B.SLilian Moise [address] [place] [address], [place] [phone] Scheduled Procedures Name Priority Associated Diagnoses Date/Time ESOPHAGOGASTRODUODENOSCOPY Cirrhosis Alc oholic (HCC) 02/10/2022 8:45 AM CDT Hypertension Portal (HCC) documented as of this encounter Visit Diagnoses Not on filedocumented in this encounter Additional Health Concerns Assessment Noted Time PHQ-9 Depression Total Score: 10/06/2021 5:00 PM CD T documented as of this encounter Care Teams Velvet Steamer Relationship Specialty Start Date End Date Ana Red P.A.-C. PCP - General Internal Medicine 12/01/[address] [place] [phone] [facility] [place] lab 08/25/21 Ervin Schroeder MD Referring Provider Family Medicine 03/24/[address] [place] [address] documented as of this encounter
--- OUTSIDE RECORDS SUMMARY | 2022-02-04 23:07 | XMS_ITS | Encounter Summary ---
:1990 Author Organization [facility] Address [address] [place] [address] Care Team Providers Name Role Phone Ana Red P.A.-C. Primary Care Provider Encounter Details Date Type Department Care Team Description 01/30/2022 Clinical Communication RST Sara Gomez [address] [facility] Lilian Mendez [place], [place] [address] [place] [phone] [place] [phone] Social History Tobacco Use Types Packs/Day Years [...] do you attend holiness or Never 2021 denominational services? Do you belong to any clubs or No 07/17/2021 organizations such as holiness groups, unions, fraArtify It or athletic groups, or school groups? 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 - 01/30/2022 9:10 PM CDT Patient called [facility] Medicine 3 team overnight for severe back pain and abdominal pain. She was discharged on 01/29. This pain is usually controlled by Flexeril, which is normally prescribed by her PCP, but the patient was not able to picker feeder this medication at her local pharmacy of [...] Description Hospital Radiology Matthew Jerome 2 Encounter Tyrell Rodriguez M.D. [address] [place] [phone] Hospital Gastroenterology and Queenie Matthew 2 Encounter Hepatology Tyrell Rodriguez M.D. [address] [place] [phone] Surgery Gastroenterology and Lachantell Matthew ESOPHAG OGASTRODUODENOSCOPY 2 Hepatology Tyrell Rodriguez M.D. [address] [place] [phone] Telemedicine Transplant 2 Lab Laboratory Medicine Karin, 2 Adeline Gannon M.D., Ph.D. [address] [place] [phone] Lab Laboratory Medicine Karin, 2 Adeline Gannon M.D., Ph.D. [address] [place] [phone] Office Visit Transplant Karin, 2 Adeline Gannon M.D., Ph.D. [address] [place] [phone] Office Visit [facility], 2 Solitario Perez P.A.-C. [address] [place] [phone] Appointment Radiology Matthew Jerome 2 Vik RodriguezBLilian Bedolla [address] [place] [phone] Appointment Gastroenterology and Adrianne, 2 Hepatology Yue Burciaga M.D. [address] [place] [phone] Office Visit Gastroenterology and Matthew Jerome 2 Hepatology Tyrell Rodriguez M.D. [address] [place] [phone] Appointment Radiology Matthew Jerome 2, M.B.B.S., M.D. [address] [place] [phone] Scheduled Procedures Name Priority Associated Diagnoses Date/Time ESOPHAGOGASTRODUODENOSCOPY Cirrhosis Alc oholic (HCC) 02/10/2022 8:45 AM CDT Hypertension Portal (HCC) documented as of this encounter Visit Diagnoses Not on filedocumented in this encounter Additional Health Concerns Assessment Noted Time PHQ-9 Depression Total Score: 10 10/06/2021 5:00 PM CD T documented as of this encounter Care Teams Manager Of Development Relationship Specialty Start Date End Date Ana Red P.A.-C. PCP - General Internal Medicine 12/01/[address] [place] [phone] [facility]- [place] lab 08/25/21 Ervin Schroeder MD Referring Provider Family Medicine 03/24/[address] [place] [address] documented as of this encounter
--- OUTSIDE RECORDS SUMMARY | 2022-02-04 23:07 | XMS_ITS | Encounter Summary ---
:1990 Author Organization [facility] Address [address] [place] [address] Care Team Providers Name Role Phone Ana Red P.A.-C. Primary Care Provider [phone] Encounter Details Date Type Department Care Team Description 01/30/2022 Clinical Communication [facility] Farida Perez Medicine in [address] [phone] [place], [place] [phone] (Work) [phone] Social History Tobacco Use Types Packs/Day Years [...] do you attend druze or Never 2021 cheondoism services? 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 Thank you, Patybrandy Rand documented in this encounter Plan of Treatment Upcoming Encounters Date Type Specialty Care Team Description [facility] Radiology [facility] 2 Encounter Tyrell Rodriguez M.D. [address] [place] [phone] [facility] Gastroenterology and [facility] 2 Encounter Hepatology Tyrell Rodriguez, Lilian [address] [place] [phone] Surgery Gastroenterology and [facility] ESOPHAG OGASTRODUODENOSCOPY 2 Hepatology Tyrell Rodriguez, Lilian [address] [place] [phone] Telemedicine Transplant 2 Lab Laboratory Medicine Olinda Frazier M.D., Ph.D. [address] [place] [phone] Lab Laboratory Medicine Olinda Frazier M.D., Ph.D. [address] [place] [phone] Office Visit Transplant Olinda Frazier M.D., Ph.D. [address] [place] [phone] Office Visit Community Internal Olinda Red P.A.-C. [address] [place] [address] [phone] Appointment Radiology Matthew Jerome 2 YTyrell, Lilian [address] [place] [phone] Appointment Gastroenterology and Adrianne 2 Hepatology Yue Burciaga M.D. [address] [place] [phone] Office Visit Gastroenterology and Matthew Jerome 2 Hepatology Vik RodriguezBGraeme, Lilian [address] [place] [phone] Appointment Radiology Matthew Jerome 2 YJoshuaBSumaBGraeme, Lilian [address] [place] [address] [phone] Scheduled Procedures Name Priority Associated Diagnoses Date/Time ESOPHAGOGASTRODUODENOSCOPY Cirrhosis Alc oholic (HCC) 02/10/2022 8:45 AM CDT Hypertension Portal (HCC) documented as of this encounter Visit Diagnoses Not on filedocumented in this encounter Additional Health Concerns Assessment Noted Time PHQ-9 Depression Total Score: 10 10/06/2021 5:00 PM CD T documented as of this encounter Care Teams Freelance Graphic Designer Relationship Specialty Start Date End Date Ana Red P.A.-C. PCP - General Internal Medicine 12/01/[address] [place] [address] BAYADI ALMARAZ [phone] [facility]- [facility], [facility] 08/25/21 Ervin Schroeder MD Referring Provider Family Medicine 03/24/[address] [place] [address] DewittADI almaraz [address] documented as of this encounter
--- OUTSIDE RECORDS SUMMARY | 2022-02-04 23:07 | XMS_ITS | Encounter Summary ---
:1990 Author Organization [facility] Address [address] [place] [address] Care Team Providers Name Role Phone Ana Red P.A.-C. Primary Care Provider [phone] Reason for Visit Reason Comments Post Hospital Follow-up Encounter Details Date Type Department Care Team Description 01/30/2022 Clinical Communication Department of [facility] Family Medicine, J, R.N. Follow-up [facility], in [facility] ([address] [phone] Social History Tobacco Use Types [...] do you attend jewish or Never 2021 presybeterian services? 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 - 01/30/2022 2:25 PM CDT SUBJECTIVE REASON [...] Encounters Date Type Specialty Care Team Description [facility] Radiology [facility] 2 Encounter Tyrell Rodriguez M.D. [address] [place] [phone] [facility] Gastroenterology and Mousa, Matthew 2 Encounter Hepatology Vik RodriguezBLilian Bedolla [address] [place] [phone] Surgery Gastroenterology and Matthew Jerome ESOPHAG OGASTRODUODENOSCOPY 2 Hepatology Tyrell Rodriguez M.D. [address] [place] [phone] Telemedicine Transplant 2 Lab Laboratory Medicine Karin, 2 Adeline Gannon M.D., Ph.D. [address] [place] [phone] Lab Laboratory Medicine Karin, 2 Adeline Gannon M.D., Ph.D. [address] [place] [phone] Office Visit Transplant Karin, 2 Adeline Gannon M.D., Ph.D. [address] [place] [phone] Office Visit Community Internal [facility], 2 Medicine Vernell Perez [address] [place] [phone] Appointment Radiology Matthew Jerome 2 Vik RodriguezBLilian Bedolla [address] [place] [phone] Appointment Gastroenterology and Adrianne, 2 Hepatology Yue Burciaga M.D. [address] [place] [phone] Office Visit Gastroenterology and Matthew Jerome 2 Hepatology YTyrell M.D. 10[address] [place] [phone] Appointment Radiology LuisMatthew abdul 2 Tyrell Rodriguez M.D. [address] [place] [phone] Scheduled Procedures Name Priority Associated Diagnoses Date/Time ESOPHAGOGASTRODUODENOSCOPY Cirrhosis Alc oholic (HCC) 02/10/2022 8:45 AM CDT Hypertension Portal (HCC) documented as of this encounter Visit Diagnoses Not on filedocumented in this encounter Additional Health Concerns Assessment Noted Time PHQ-9 Depression Total Score: 10 10/06/2021 5:00 PM CD T documented as of this encounter Care Teams Coke Drawer Relationship Specialty Start Date End Date Ana Red P.A.-C. PCP - General Internal Medicine 12/01/[address] [place] [phone] [facility] [place] lab 08/25/21 Ervin Schroeder MD Referring Provider Family Medicine 03/24/[address] [place] [address] documented as of this encounter
--- OUTSIDE RECORDS SUMMARY | 2022-02-04 23:07 | XMS_ITS | Encounter Summary ---
:1990 Author Organization [facility] Address [address] [place] [address] Care Team Providers Name Role Phone Ana Red P.A.-C. Primary Care Provider [phone] Encounter Details Date Type Department Care Team Description 01/30/2022 Orders Only Division [facility] Harinder Mccormick M.D. Internal Medicine, [address] in [facility] [phone] [place] [address] [place], [place] [phone] Social History Tobacco Use Types Packs/Day Years [...] do you attend faith or Never 2021 sabianist services? 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 [address] [place] [phone] Lab Laboratory Medicine Karin, 2 Adeline Gannon M.D., Ph.D. [address] [place] [phone] Office Visit Transplant Karin, 2 Adeline Gannon M.D., Ph.D. [address] [place] [address] [phone] Office Visit Community Internal [facility], 2 Medicine Vernell Perez [address] [place] [phone] Appointment Radiology Matthew Jerome 2 YJoshuaBSumaBiLlian Bedolla [address] [place] [address] Appointment Gastroenterology and Adrianne, 2 Hepatology Yue Burciaga M.D. [address] [place] [phone] Office Visit Gastroenterology and Matthew Jerome 2 Hepatology Joshua RodriguezBSumaBLilian Bedolla [address] [place] [phone] 11/03/202 Appointment Radiology Matthew Jerome 2 YTyrell, Lilian [address] [place] [address] Scheduled Procedures Name Priority Associated Diagnoses Date/Time ESOPHAGOGASTRODUODENOSCOPY Cirrhosis Alc oholic (HCC) 02/10/2022 8:45 AM CDT Hypertension Portal (HCC) documented as of this encounter Visit Diagnoses Not on filedocumented in this encounter Additional Health Concerns Assessment Noted Time PHQ-9 Depression Total Score: 10/06/2021 5:00 PM CD T documented as of this encounter Care Teams Ostrich Farmer Relationship Specialty Start Date End Date Ana Red P.A.-C. PCP - General Internal Medicine 12/01/[address] [place] [phone] [facility]- [place] lab 08/25/21 Ervin Schroeder MD Referring Provider Family Medicine 03/24/[address] [place] [address] documented as of this encounter
--- OUTSIDE RECORDS SUMMARY | 2022-02-04 23:07 | XMS_ITS | Encounter Summary ---
:1990 Author Organization [facility] Address [address] [place] [address] Care Team Providers Name Role Phone Ana Red P.A.-C. Primary Care Provider Reason for Visit Reason Comments Med Refill Encounter Details Date Type Department Care Team Description 01/29/2022 Refill [facility] Ana Red , Med Refill Internal Medicine [place] 300 [facility] 300 [facility] [place] [address] [place] [address] [phone] Social History Tobacco Use Types Packs/Day Years [...] do you attend bahai or Never 2021 voodoo services? Do you belong to any clubs or No 07/17/2021 organizations such as bahai groups, unions, fraUniversity of Maine or athletic groups, or school groups? 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 10[address] [place] [phone] Surgery Gastroenterology and Queenie Matthew ESOPHAG OGASTRODUODENOSCOPY 2 Hepatology Tyrell Rodriguez M.D. [address] [place] [address] Telemedicine Transplant 2 Lab Laboratory Medicine Karin, 2 Adeline Gannon M.D., Ph.D. [address] [place] [phone] Lab Laboratory Medicine Karin, 2 Adeline Gannon M.D., Ph.D. [address] [place] [phone] Office Visit Transplant Karin, 2 Adeline Gannon M.D., Ph.D. [address] [place] [address] [phone] Office Visit Community Internal [facility], 2 Medicine Farida Perez-CSuma [address] [place] [phone] Appointment Radiology Matthew Jerome 2 Tyrell Rodriguez M.D. [address] [place] [phone] Appointment Gastroenterology and Adrianne, 2 Hepatology Yue Burciaga M.D. [address] [place] [phone] Office Visit Gastroenterology and Luischantell Matthew 2 Hepatology Vik RodriguezBLilian Bedolla [address] [place] [phone] Appointment Radiology Matthew Jerome 2 YTyrell M.D. [address] [place] [phone] Scheduled Procedures Name Priority Associated Diagnoses Date/Time ESOPHAGOGASTRODUODENOSCOPY Cirrhosis Alc oholic (HCC) 02/10/2022 8:45 AM CDT Hypertension Portal (HCC) documented as of this encounter Visit Diagnoses Not on filedocumented in this encounter Additional Health Concerns Assessment Noted Time PHQ-9 Depression Total Score: 10/06/2021 5:00 PM CD T documented as of this encounter Care Teams Fraud Prevention Analyst Relationship Specialty Start Date End Date Ana Red P.A.-C. PCP - General Internal Medicine 12/01/[address] [place] [phone] [facility]- [place] lab 08/25/21 Ervin Schroeder MD Referring Provider Family Medicine 03/24/[address] [place] [address] documented as of this encounter
--- OUTSIDE RECORDS SUMMARY | 2022-02-04 23:07 | XMS_ITS | Encounter Summary ---
:1990 Author Organization [facility] Address [address] [place] [address] Care Team Providers Name Role Phone Ana Red P.A.-C. Primary Care Provider [phone] Reason for Visit Reason Comments Post Hospital Follow-up Encounter Details Date Type Department Care Team Description 01/30/2022 Clinical Department of Parris Adrian [facility] meagan Communication [facility] Internal A, R.N. Follow-up Medicine in [address] [place] [phone] [place] [address] [place], [place] (Work) [phone] Social History Tobacco Use [...] do you attend christianity or Never 2021 druze services? 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 - 01/30/2022 7:50 AM CDT Catia Carias is not eligible for the Adult Medical Care Coordination Program. Patient was dismissed from the hospital on 01/29/22 at 1201. documented in this encounter Plan of Treatment Upcoming Encounters Date Type Specialty Care Team Description [facility] Radiology Mousa, Matthew 2 Encounter Tyrell Rodriguez, M.Jeri [address] [place] [address] Hospital Gastroenterology and Luischantell Matthew 2 Encounter Hepatology Tyrell Rodriguez, Lilian [address] [place] [address] Surgery Gastroenterology and [facility] Matthew ESOPHAG OGASTRODUODENOSCOPY 2 Hepatology Tyrell Rodriguez, Lilian [address] [place] [phone] Telemedicine Transplant 2 Lab Laboratory Medicine Karin, 2 Adeline Gannon M.D., Ph.D. [address] [place] [phone] Lab Laboratory Medicine Karin, 2 Adeline Gannon M.D., Ph.D. [address] [place] [phone] Office Visit Transplant Karin, 2 Adeline Gannon M.D., Ph.D. [address] [place] [phone] Office Visit [facility], 2 Medicine Carlotta PerezC. 300 [place] [phone] Appointment Radiology Luischantell Matthew 2 Tyrell Rodriguez, Lilian [address] [place] [phone] Appointment Gastroenterology and Adrianne, 2 Hepatology Yue Burciaga M.D. [address] [place] [address] Office Visit Gastroenterology and Matthew Jerome 2 Hepatology Tyrell Rodriguez M.D. [address] [place] [phone] Appointment Radiology LuisMatthew abdul 2 Tyrell Rodriguez M.D. [address] [place] [phone] Scheduled Procedures Name Priority Associated Diagnoses Date/Time ESOPHAGOGASTRODUODENOSCOPY Cirrhosis Alc oholic (HCC) 02/10/2022 8:45 AM CDT Hypertension Portal (HCC) documented as of this encounter Procedures Procedure Name Priority Date/Time Associated Diagnosis Comme nts EXT THINPREP SCREEN Routine 02/28/2014 Results for this procedure are i n the results section . documented in this encounter Results EXT ThinPrep Screen (02/28/2014) [facility] gist Method Time Signature EXT ThinPrep Normal - Normal - See Screen See Scanned Scanned Report for Report for Details Details, HIMS - Report Received and Scanned Comment: See Care Everywhere for Results Specimen (Source) Anatomical Location Collection Method / Collectio n Time Received Time / Laterality Volume Thin Prep Vial 02/28/2014 (Cervix/Endocervi x) Impressions Jinny Christensen - 03/05/2014 9:07 AM LATHE TURNER Resulting Agency [facility] Specimen Collected: 02/28/14 14:36 Last Resulted: 03/05/14 09:07 [facility] Result Received: 11/29/18 11:58 Historical Provider LAB PAP PATHDX ORDERABLES documented in this encounter Visit Diagnoses Not on filedocumented in this encounter Additional Health Concerns Assessment Noted Time PHQ-9 Depression Total Score: 10 10/06/2021 5:00 PM CD T documented as of this encounter Care Teams Top Dyeing Machine Loader Relationship Specialty Start Date End Date Deanovic, Ana, P.A.-C. PCP - General Internal Medicine 8/1/[address] [place] [address] [place] [phone] [facility] 08/25/21 Ervin Schroeder MD Referring Provider Family Medicine 03/24/[address] [place] [address] [place] [address] documented as of this encounter
--- OUTSIDE RECORDS SUMMARY | 2022-02-04 23:07 | XMS_ITS | Encounter Summary ---
:1990 Author Organization [facility] Address [address] [place] [address] Care Team Providers Name Role Phone Ana Red P.A.-C. Primary Care Provider [phone] Encounter Details Date Type Department Care Team Description 01/29/2022 Orders Only Pharmacy Prior Auth Genaro Biggs [phone] Social History Tobacco Use Types Packs/Day Years [...] do you attend congregation or Never 2021 shinto services? 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 [address] [place] [phone] Lab Laboratory Medicine Charlesalexa, 2 Adeline Gannon M.D., Ph.D. [address] [place] [phone] Office Visit Transplant Karin, 2 Adeline Gannon M.D., Ph.D. [address] [place] [address] [phone] Office Visit [facility] 2 Medicine Vernell Perez [address] [place] [phone] Appointment Radiology Matthew Jerome 2 Y, M.B.B.SSuma, Lilian [address] [place] [phone] Appointment Gastroenterology and Adrianne, 2 Hepatology Yue Burciaga M.D. [address] [place] [phone] Office Visit Gastroenterology and Matthew Jerome 2 Hepatology Jennifer M.B.B.SLilian Moise [address] [place] [phone] Appointment Radiology Matthew Jerome 2 Y M.B.B.SLilian Moise [address] [place] [phone] Scheduled Procedures Name Priority Associated Diagnoses Date/Time ESOPHAGOGASTRODUODENOSCOPY Cirrhosis Alc oholic (HCC) 02/10/2022 8:45 AM CDT Hypertension Portal (HCC) documented as of this encounter Visit Diagnoses Not on filedocumented in this encounter Additional Health Concerns Assessment Noted Time PHQ-9 Depression Total Score: 10/06/2021 5:00 PM CD T documented as of this encounter Care Teams Carton Making Machinist Relationship Specialty Start Date End Date Ana Red P.A.-C. PCP - General Internal Medicine 12/01/[address] [place] [phone] [facility]- [place] lab 08/25/21 Ervin Schroeder MD Referring Provider Family Medicine 03/24/[address] [place] [address] documented as of this encounter
--- OUTSIDE RECORDS SUMMARY | 2022-02-04 23:07 | XMS_ITS | Encounter Summary ---
:1990 Author Organization [facility] Address [address] [place] [address] Care Team Providers Name Role Phone Ana Red P.A.-C. Primary Care Provider [phone] Reason for Visit Reason Comments Phone Contact Encounter Details Date Type Department Care Team Description 01/29/2022 Clinical Communication Adry Orourke Phone Contact Center for [address] [place] [address] Transplantation [place] [phone] [place], [place] [phone] [place] [address] (Work) [place] [phone] Social History Tobacco Use Types Packs/Day [...] 07/17/2021 organizations such as nondenominational groups, unions, fraPlanet Sushi or athletic groups, or school groups? 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 Call log added. Telephone Encounter - Jo Ann Blakely - 01/29/2022 11:57 AM CDT Alisha from [facility] reaching out to the transplant team to assist pt in scheduling appts. Pt is also wanting to transfer her care from [place] to [place]. Please reach out to the pt at [phone]. Thanks, documented in this encounter Plan of Treatment Upcoming Encounters Date Type Specialty Care Team Description Hospital Radiology Matthew Jerome 2 Encounter Tyrell Rodriguez, Lilian [address] [place] [phone] Hospital Gastroenterology and Queenie Matthew 2 Encounter Hepatology Tyrell Rodriguez, Lilian [address] [place] [phone] Surgery Gastroenterology and Okchantell Matthew ESOPHAG OGASTRODUODENOSCOPY 2 Hepatology Tyrell Rodriguez, Lilian [address] [place] [phone] Telemedicine Transplant 2 Lab Laboratory Medicine Karin, 2 Adeline Gannon M.D., Ph.D. [address] [place] [phone] Lab Laboratory Medicine Karin 2 Adeline Gannon M.D., Ph.D. [address] [place] [phone] Office Visit Transplant Olinda Frazier M.D., Ph.D. [address] [place] [phone] Office Visit Community Internal [facility], 2 Solitario Perez P.A.-C. [address] [place] [address] [phone] Appointment Radiology Matthew Jerome 2 Y, M.B.B.SSuma, Lilian [address] [place] [phone] Appointment Gastroenterology and Adrianne, 2 Hepatology Yue Burciaga M.D. [address] [place] [phone] Office Visit Gastroenterology and Matthew Jerome 2 Hepatology Joshua RodriguezB.B.SSuma, Lilian [address] [place] [address] Appointment Radiology Matthew Jerome 2 YJoshuaB.B.SSuma, Lilian [address] [place] [address] Scheduled Procedures Name Priority Associated Diagnoses Date/Time ESOPHAGOGASTRODUODENOSCOPY Cirrhosis Alc oholic (HCC) 02/10/2022 8:45 AM CDT Hypertension Portal (HCC) documented as of this encounter Visit Diagnoses Not on filedocumented in this encounter Additional Health Concerns Assessment Noted Time PHQ-9 Depression Total Score: 10 10/06/2021 5:00 PM CD T documented as of this encounter Care Teams Manufacturing Machine Operator Relationship Specialty Start Date End Date Ana Red P.A.-C. PCP - General Internal Medicine 12/01/[address] [place] [phone] [facility]- [place] lab 08/25/21 Ervin Schroeder MD Referring Provider Family Medicine 03/24/[address] [place] [address] documented as of this encounter
--- OUTSIDE RECORDS SUMMARY | 2022-02-04 23:08 | XMS_ITS | Encounter Summary ---
:1990 Author Organization [facility] Address [address] [place] [address] Care Team Providers Name Role Phone Ana Red P.A.-C. Primary Care Provider [phone] Reason for Visit Reason Comments Rx Prior Authorization ASHLEY DENIED - LIDOCAINE 5% PAT CH Encounter Details Date Type Department Care Team Description 01/26/2022 Clinical Communication Pharmacy Prior Auth Christopher, Rx Prior RO Nicole A Authorization (ASHLEY [phone] DENIED - LIDOCA INE 5% PATCH) Social [...] do you attend druze or Never 2021 amish services? Do you belong to any clubs or No 07/17/2021 organizations such as druze groups, unions, fraKihon or athletic groups, or school groups? 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 [address] [place] [phone] [facility] Gastroenterology and [facility] 2 Encounter Hepatology Tyrell Rodriguez M.D. [address] [place] [phone] Surgery Gastroenterology and [facility] ESOPHAG OGASTRODUODENOSCOPY 2 Hepatology Tyrell Rodriguez, Lilian [address] [place] [phone] Telemedicine Transplant 2 Lab Laboratory Medicine Karin, Olinda Gannon M.D., Ph.D. [address] [place] [phone] Lab Laboratory Medicine Olinda Frazier M.D., Ph.D. [address] [place] [phone] Office Visit Transplant Olinda Frazier M.D., Ph.D. [address] [place] [phone] Office Visit Community Internal [place], 2 Medicine Vernell Perez [address] [place] [phone] Appointment Radiology Matthew Jerome 2 Y, M.B.B.SSuma, Lilian [address] [place] [phone] Appointment Gastroenterology and Adrianne, 2 Hepatology Yue Burciaga M.D. [address] [place] [phone] Office Visit Gastroenterology and Matthew Jerome 2 Hepatology Joshua RodriguezB.B.SSuma, Lilian [address] [place] [phone] Appointment Radiology Matthew Jerome 2 YElizabeth.B.B.SSuma, Lilian [address] [place] [address] [phone] Scheduled Procedures Name Priority Associated Diagnoses Date/Time ESOPHAGOGASTRODUODENOSCOPY Cirrhosis Alc oholic (HCC) 02/10/2022 8:45 AM CDT Hypertension Portal (HCC) documented as of this encounter Visit Diagnoses Not on filedocumented in this encounter Additional Health Concerns Assessment Noted Time PHQ-9 Depression Total Score: 10 10/06/2021 5:00 PM CD T documented as of this encounter Care Teams Cottonseed Meat Presser Relationship Specialty Start Date End Date Ana Red P.A.-C. PCP - General Internal Medicine 12/01/21 [address] [place] [phone] [facility]- [place] lab 08/25/21 Ervin Schroeder MD Referring Provider Family Medicine 11/22/[address] [place] [phone] documented as of this encounter
--- OUTSIDE RECORDS SUMMARY | 2022-02-04 23:08 | XMS_ITS | Encounter Summary ---
:1990 Author Organization [facility] Address [address] [place] [address] Care Team Providers Name Role Phone Ana Red P.A.-C. 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) Procedures ED ADMIT Referral ID Status Reason Start Date Expiration Date Visits Requ ested Visits Authorized [id number] 1 1 Encounter Details Date Type Department Care Team Description 01/26/2022 Anesthesia Event Division of Gildardo Hickey APRN, DOCTOR OF DENTAL SURGERY, DNAP [address] [place] [phone] Gastroenterology in [place]ia Green APRN, DOCTOR OF DENTAL SURGERY, DNAP [address] [place] [phone] [place], [place] [address] [place] [phone] Anesthesia Record Procedure Summary Procedure Name Responsible Anesthesia Start Anesthesia Stop Time Anesthesiologist Time EGD Gildardo Hickey APRN, 01/26/22 1538 01/26/22 1645 (ESOPHAGEALGASTRODU DOCTOR OF DENTAL SURGERY, DNAP ODENOSCOPY) Events Date Time Event Comment [...] h andoff to the receiving staff during [facility] we 1. Identified the patient 2. Ident [...] Puncture 01/13/22; 1507; No; 01/13/22 1507 by 02/03/22 17 59 by Abdomen; Right, Lower, Perri Mcintyre R, R.N. Nabila Crook E, Quadrant; paracentesis R.N. site; 4x4 gauze and tegaderm; 02/03/22; 1759 Peripheral IV Placement Date: 01/20/22; 01/20/222141 by [...] 0900 by Placement Time: 0801; Perri Alan, RMarla Smalls, Catheter Size: 22 G; R.N. Orientation: Anterior, Left, Lower; Location: Forearm; Site Prep: Chlorhexidine (Preferred); Technique: Anatomical landmarks; Inserted by: KJS; Insertion Attempts: 1; Removal Date: 01/27/22; Removal Time: 0900 Puncture 01/21/22; 1006; Abdomen; 01/21/22 1006 by 1759 by Right, Upper, Quadrant; Evy Dixon R.N. Sz ymanski, Kathryn E, 02/03/22; 1759; resolved R.N. ETT Placement Date: 01/26/22; 01/26/22 1551 by 01/26 1635 by Placement Time: 1551 Gildardo Hickey Brown, St ephen E, (created via procedure SLASHER, DOCTOR OF DENTAL SURGERY, DNAP SLASHER, CR NA, DNAP documentation); Mask Ventilation: Not [...] el, Anna C Catheter Size: 18 G; SLASHER, DOCTOR OF DENTAL SURGERY, DNAP Orientation: Right; Location: Wrist; Inserted by: [...] do you attend mormonism or Never 2021 church services? Do you [...] or the highest technical, or vocational p [facility] degree you have received? 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 documented as of this encounter OR Notes Anesthesia Postprocedure Evaluation - Gildardo Hickey APRN, CRNA, DNAP - 01/26/2022 4:45 PM CDT Patient: Catia Carias Procedure Summary Date: 01/26/22 Room / Location: Division of Gastroenterology in [place], [place] Anesthesia Start: 1538 Anesthesia Stop: 164 Procedure: EGD (ESOPHAGEALGASTRODUODENOSCOPY) Diagnosis: Scheduled Providers: Gildardo Hickey APRN, CRNA, DNAShanita Responsible Provider: Gildardo Hickey APRN, CRNA, DNAP [...] H&P Assessment Procedure Summary Anesthesia Start Date/Time: 01/26/22 1538 Scheduled providers: Gildardo Hickey APRN, CRNA, DNAP Procedure: EGD (ESOPHAGEALGASTRODUODENOSCOPY) Location: Division of Gastroenterology in [place], [place] Pertinent components of the patient's history [...] with patient /legal guardian or through an supervisor solder making. Risks/Benefits/Alternatives of Blood transfusion discussed with patient [...] Type Specialty Care Team Description Hospital Radiology [facility] 2 Encounter Tyrell Rodriguez M.D. [address] [place] [phone] Hospital Gastroenterology and [facility] 2 Encounter Hepatology Tyrell Rodriguez M.D. [address] [place] [phone] Surgery Gastroenterology and [facility] ESOPHAG OGASTRODUODENOSCOPY 2 Hepatology Tyrell Rodriguez M.D. [address] [place] [phone] Telemedicine Transplant 2 Lab Laboratory Medicine Karin, Olinda Gannon M.D., Ph.D. [address] [place] [phone] Lab Laboratory Medicine Olinda Frazier M.D., Ph.D. [address] [place] [address] [phone] Office Visit Transplant Olinda Frazier M.D., Ph.D. [address] [place] [phone] Office Visit Community Internal [facility], 2 Solitario Perez P.A.-C. [address] [place] [phone] Appointment Radiology LuisMatthew abdul 2 YTyrell M.D. [address] [place] [address] [phone] Appointment Gastroenterology and Adrianne, 2 Hepatology Yue Burciaga M.D. [address] [place] [phone] Office Visit Gastroenterology and LuisNew abdular 2 Hepatology Tyrell Rodriguez M.D. [address] [place] [address] [phone] Appointment Radiology QueenieNewar 2 YTyrell M.D. [address] [place] [address] [phone] Scheduled Procedures Name Priority Associated Diagnoses Date/Time [...] 3:51 PM CDT) Narrative Gildardo Hickey APRN, DOCTOR OF DENTAL SURGERY, DNAP - 3:51 PM CDT Gildardo Hickey [...] ?? Airway event: no complications Gildardo Hickey SLASHER, DOCTOR OF DENTAL SURGERY, DNAP ANESTHESIA ORDERABLES documented in this encounter [...] documented as of this encounter Care Teams Egg Producer Relationship Specialty Start Date End Date Ana Red P.A.-C. PCP - General Internal Medicine 12/01/[address] [place] [phone] [facility]- [place] lab 08/25/21 Ervin Schroeder MD Referring Provider Family Medicine 03/24/[address] [place] [phone] documented as of this encounter
--- OUTSIDE RECORDS SUMMARY | 2022-02-04 23:08 | XMS_ITS | Encounter Summary ---
:1990 Author Organization [facility] Address [address] [place] [address] Care Team Providers Name Role Phone Ana Red P.A.-C. Primary Care Provider [phone] Encounter Details Date Type Department Care [...] do you attend lutheran or Never 2021 mu-ism services? 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 [address] [place] [address] [phone] Hospital Gastroenterology and Queenie Matthew 2 Encounter Hepatology Tyrell Rodriguez M.D. [address] [place] [address] [phone] Surgery Gastroenterology and [place], Matthew ESOPHAG OGASTRODUODENOSCOPY 2 Hepatology Tyrell Rodriguez M.D. [address] [place] [address] [phone] Telemedicine Transplant 2 Lab Laboratory Medicine Karin, 2 Adeline Gannon M.D., Ph.D. [address] [place] [phone] Lab Laboratory Medicine Olinda Frazier M.D., Ph.D. [address] [place] [phone] Office Visit Transplant Karin, Olinda Gannon M.D., Ph.D. [address] [place] [phone] Office Visit [facility] Internal [facility], 2 Medicine Vernell Perez [address] [place] [phone] Appointment Radiology Matthew Jerome 2 YJoshuaBSumaBLilian Bedolla [address] [place] [phone] Appointment Gastroenterology and Adrianne 2 Hepatology Yue Burciaga M.D. [address] [place] [phone] Office Visit Gastroenterology and Matthew Jerome 2 Hepatology Joshua RodriguezBSumaBSumaSLilian Moise [address] [place] [phone] Appointment Radiology Matthew eJrome 2 Joshua RodriguezBSumaBSumaSLilian Moise [address] [place] [address] [phone] Scheduled Procedures Name Priority Associated Diagnoses Date/Time [...] documented as of this encounter Care Teams Classroom Instructional Aide Relationship Specialty Start Date End Date Ana Red P.A.-C. PCP - General Internal Medicine 12/01/[address] [place] [phone] [facility]- [place] lab 08/25/21 Ervin Schroeder MD Referring Provider Family Medicine 03/24/[address] [place] [address] documented as of this encounter
--- OUTSIDE RECORDS SUMMARY | 2022-02-04 23:08 | XMS_ITS | Encounter Summary ---
:1990 Author Organization [facility] Address [address] [place] [address] Care Team Providers Name Role Phone Ana Red P.A.-C. Primary Care Provider [phone] Encounter Details Date Type Department Care Team Description 01/26/2022 Orders Only Pharmacy Prior Auth Nicole Briscoe [phone] Social History Tobacco Use Types Packs/Day Years [...] do you attend zoroastrianism or Never 2021 presybeterian services? Do you [...] or the highest technical, or vocational p orlf degree you have received? 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D., Ph.D. [address] [place] [address] [phone] Lab Laboratory Medicine Karin, 2 Adeline Gannon M.D., Ph.D. [address] [place] [phone] Office Visit Transplant Karin, 2 Adeline Gannon M.D., Ph.D. [address] [place] [address] [phone] Office Visit [facility] Internal [facility], 2 Medicine Vernell Perez [address] [place] [phone] Appointment Radiology Matthew Jerome 2 Y M.B.B.SSuma, Lilian [address] [place] [phone] Appointment Gastroenterology and Adrianne, 2 Hepatology Yue Burciaga M.D. [address] [place] [phone] Office Visit Gastroenterology and Matthew Jerome 2 Hepatology Jennifer M.B.B.SLilian Moise [address] [place] [phone] Appointment Radiology Matthew Jerome 2 Y M.B.B.SLilian Moise [address] [place] [phone] Scheduled Procedures Name Priority Associated Diagnoses Date/Time ESOPHAGOGASTRODUODENOSCOPY Cirrhosis Alc oholic (HCC) 02/10/2022 8:45 AM CDT Hypertension Portal (HCC) documented as of this encounter Visit Diagnoses Not on filedocumented in this encounter Additional Health Concerns Assessment Noted Time PHQ-9 Depression Total Score: 10/06/2021 5:00 PM CD T documented as of this encounter Care Teams Spa Receptionist Relationship Specialty Start Date End Date Ana Red P.A.-C. PCP - General Internal Medicine 12/01/[address] [place] [phone] [facility]- [place] lab 08/25/21 Ervin Schroeder MD Referring Provider Family Medicine 03/24/[address] [place] [phone] documented as of this encounter
--- OUTSIDE RECORDS SUMMARY | 2022-02-04 23:08 | XMS_ITS | Encounter Summary ---
:1990 Author Organization [facility] Address [address] [place] [address] Care Team Providers Name Role Phone Ana Red P.A.-C. Primary Care Provider [phone] Encounter Details Date Type Department Care [...] do you attend congregation or Never 2021 samaritan services? 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 [address] [place] [address] [phone] Hospital Gastroenterology and Queenie Matthew 2 Encounter Hepatology Tyrell Rodriguez M.D. [address] [place] [address] [phone] Surgery Gastroenterology and [place], Matthew ESOPHAG OGASTRODUODENOSCOPY 2 Hepatology Tyrell Rodriguez M.D. [address] [place] [address] [phone] Telemedicine Transplant 2 Lab Laboratory Medicine Karin, 2 Adeline Gannon M.D., Ph.D. [address] [place] [phone] Lab Laboratory Medicine Olinda Frazier M.D., Ph.D. [address] [place] [phone] Office Visit Transplant Karin, Olinda Gannon M.D., Ph.D. [address] [place] [phone] Office Visit [facility] Internal [facility], 2 Medicine Vernell Perez [address] [place] [phone] Appointment Radiology Matthew Jerome 2 YJoshuaBSumaBLilian Bedolla [address] [place] [phone] Appointment Gastroenterology and Adrianne 2 Hepatology Yue Burciaga M.D. [address] [place] [phone] Office Visit Gastroenterology and Matthew Jerome 2 Hepatology Joshua RodriguezBSumaBSumaSLilian Moise [address] [place] [phone] Appointment Radiology Matthew Jerome 2 Joshua RodriguezBSumaBSumaSLilian Moise [address] [place] [address] [phone] Scheduled Procedures Name Priority Associated Diagnoses Date/Time [...] documented as of this encounter Care Teams Lathe Spotter Relationship Specialty Start Date End Date Ana Red P.A.-C. PCP - General Internal Medicine 12/01/[address] [place] [phone] [facility]- [place] lab 08/25/21 Ervin Schroeder MD Referring Provider Family Medicine 03/24/[address] [place] [phone] documented as of this encounter
--- OUTSIDE RECORDS SUMMARY | 2022-02-04 23:08 | XMS_ITS | Encounter Summary ---
:1990 Author Organization [facility] Address [address] [place] [address] Care Team Providers Name Role Phone Ana Red P.A.-C. Primary Care Provider [phone] Encounter Details Date Type Department Care Team Description 01/27/2022 Orders Only Pharmacy Prior Auth RO Yolande Evi Loretta [phone] Social History Tobacco Use Types Packs/Day Years [...] do you attend alevism or Never 2021 baptist services? 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 [address] [place] [phone] Lab Laboratory Medicine Karin, 2 Adeline Gannon M.D., Ph.D. [address] [place] [address] [phone] Office Visit Transplant Karin, 2 Adeline Gannno M.D., Ph.D. [address] [place] [address] [phone] Office Visit [facility], 2 Medicine Vernell Perez [address] [place] [phone] Appointment Radiology Matthew Jerome 2 Y M.B.B.SSuma, Lilian [address] [place] [phone] Appointment Gastroenterology and Adrianne, 2 Hepatology Yue Burciaga M.D. [address] [place] [phone] Office Visit Gastroenterology and Matthew Jerome 2 Hepatology Jennifer M.B.B.SLilian Moise [address] [place] [phone] Appointment Radiology Matthew Jerome 2 Y M.B.B.SLilian Moise [address] [place] [phone] Scheduled Procedures Name Priority Associated Diagnoses Date/Time ESOPHAGOGASTRODUODENOSCOPY Cirrhosis Alc oholic (HCC) 02/10/2022 8:45 AM CDT Hypertension Portal (HCC) documented as of this encounter Visit Diagnoses Not on filedocumented in this encounter Additional Health Concerns Assessment Noted Time PHQ-9 Depression Total Score: 10/06/2021 5:00 PM CD T documented as of this encounter Care Teams Dietary Clerk Relationship Specialty Start Date End Date Ana Red P.A.-C. PCP - General Internal Medicine 12/01/[address] [place] [phone] [facility] [place] lab 08/25/21 Ervin Schroeder MD Referring Provider Family Medicine 03/24/[address] [place] [phone] documented as of this encounter
--- OUTSIDE RECORDS SUMMARY | 2022-02-04 23:08 | XMS_ITS | Encounter Summary ---
:1990 Author Organization [facility] Address [address] [place] [address] Care Team Providers Name Role Phone Ana Red P.A.-C. Primary Care Provider [phone] Encounter Details Date Type Department Care Team Description 01/20/2022 Clinical Communication Department of Felicita Spicer Gastroenterology in [place] [place], [place] [phone] [place] [address] ([facility]) [place] [phone] Social History Tobacco Use Types Packs/Day [...] do you attend holiness or Never 2021 spiritism services? Do you belong to any clubs or No 07/17/2021 organizations such as holiness groups, unions, fraJiahe or athletic groups, or school groups? 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 - 01/20/2022 4:09 PM CDT Policy Writer called patient and discussed the recommendation to report to the ED for management of acute kidney injury. Patient was also advised to hold her diuretics per direction from Dr. Jerome in separatemessage (see below). Patient verbalized understanding of the information provided and states she will report to [facility] ED as this is slightly closer for her. [4:01 PM] Matthew Jerome M.B.B.S., M.D. can you please call Christelle Carias and have her come to the ER for Acute kidney injury [4:01 PM] Mousa, Matthew Y., M.B.B.S., M.D. she needs albumin, and needs to [...] Type Specialty Care Team Description Hospital Radiology [facility] 2 Encounter Tyrell Rodriguez M.D. [address] [place] [phone] [facility] Gastroenterology and [facility] 2 Encounter Hepatology Tyrell Rodriguez M.D. [address] [place] [phone] Surgery Gastroenterology and [facility] ESOPHAG OGASTRODUODENOSCOPY 2 Hepatology Tyrell Rodriguez, Lilian [address] [place] [phone] Telemedicine Transplant 2 Lab Laboratory Medicine Karin, Olinda Gannon M.D., Ph.D. [address] [place] [phone] Lab Laboratory Medicine Karin, 2 Adeline Gannon M.D., Ph.D. [address] [place] [phone] Office Visit Transplant Karin, 2 Adeline Gannon M.D., Ph.D. [address] [place] [phone] Office Visit Community Internal [facility], 2 Solitario Perez P.A.-C. [address] [place] [phone] Appointment Radiology Matthew Jerome 2 YVikBSumaSSuma, Lilian [address] [place] [phone] Appointment Gastroenterology and Adrianne, 2 Hepatology Yue Bucriaga M.D. [address] [place] [phone] Office Visit Gastroenterology and Matthew Jerome 2 Hepatology Joshua RodriguezBSumaBSumaSSuma, Lilian [address] [place] [phone] Appointment Radiology Matthew Jerome 2 Y M.B.B.SSuma, Lilian [address] [place] [phone] Scheduled Procedures Name Priority Associated Diagnoses Date/Time ESOPHAGOGASTRODUODENOSCOPY Cirrhosis Alc oholic (HCC) 02/10/2022 8:45 AM CDT Hypertension Portal (HCC) documented as of this encounter Visit Diagnoses Not on filedocumented in this encounter Additional Health Concerns Assessment Noted Time PHQ-9 Depression Total Score: 10 10/06/2021 5:00 PM CD T documented as of this encounter Care Teams Tunneller Relationship Specialty Start Date End Date Ana Red P.A.-C. PCP - General Internal Medicine 12/01/[address] [place] [phone] [facility] 08/25/21 Ervin Schroeder MD Referring Provider Family Medicine 03/24/[address] [place] [phone] documented as of this encounter
--- OUTSIDE RECORDS SUMMARY | 2022-02-04 23:08 | XMS_ITS | Encounter Summary ---
:1990 Author Organization [facility] Address [address] [place] [address] Care Team Providers Name Role Phone Ana [...] Expiration Date Visits Requ ested Visits Authorized [id number] 1 1 Encounter Details Date Type Department Care Team Description 01/23/2022 Anesthesia Event Division of Gastroenterology Allegra Cronin in [facility] pedro Wilkes APRN, JUNIOR SOFTWARE DEVELOPER [address] [facility] [address] [place] [phone] [place], [place] [phone] Anesthesia Record Procedure Summary Procedure Name Responsible Anesthesia Start Anesthesia Stop Time Anesthesiologist Time EGD Allegra Cronin APRN, 01/23/22 1529 2 1552 (ESOPHAGEALGASTRODU JUNIOR SOFTWARE DEVELOPER ODENOSCOPY) Events Date Time Event Comment 01/23/2022 1529 An Start Machine/Equipmen t Checked Infection Precautions Foll owed Procedure/Site Verified NPO Sta tus Verified Supine Standard ASA Mon itors Applied 1534 Turnover to Proceduralist 1539 Proc Start 1543 Proc Fin 1546 Turnover to ANE Staff 1547 an stop data 1552 An End I completed my h andoff to the receiving staff during [facility] we 1. Identified the patient 2. Ident [...] 17 59 by Abdomen; Right, Lower, Perri Mcintyre, R.NNabila Cabral, Quadrant; paracentesis R.N. site; 4x4 gauze and tegaderm; 02/03/22; 1759 Peripheral IV Placement Date: 01/20/22; 01/20/222141 by 01/29 by Placement Time: 2141; Yobany Tucker Anna C Catheter Size: 20 G; M, R.N. Orientation: Left; Location: Wrist; Site Prep: Chlorhexidine (Preferred); Technique: Anatomical landmarks; Inserted by: MARIAA Camarena ; Insertion Attempts: 1; Removal Date: 01/29/22; Removal Time: 1025; Removal Reason: Per protocol Peripheral IV Placement Date: 01/21/22; 01/21/22 0801 by 01/27 0900 by Placement Time: 08; Perri Alan, R.N. Marla Munguia, Catheter Size: 22 G; R.N. Orientation: Anterior, Left, Lower; Location: Forearm; Site Prep: Chlorhexidine (Preferred); Technique: Anatomical landmarks; Inserted by: KIRA; Insertion Attempts: 1; Removal Date: 01/27/22; Removal Time: 0900 Puncture 01/21/22; 1006; Abdomen; 01/21/22 1006 by 1759 by Right, Upper, Quadrant; Evy Dixon R.N. Sz ymanski, Kathryn E, 02/03/22; 1759; resolved R.N. documented in this encounter Social History Tobacco [...] do you attend rastafari or Never 2021 jainism services? Do you [...] the highest technical, or vocational p [facility] degree you have received? 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 Risks/Benefits/Alternatives of Blood transfusion discussed with patient / legal guardian, including an opportunity to ask questions and/or decline some or all transfusion therapies. The patient / legalguardian consented to the use of all blood products, as deemed medically necessary Approval to Proceed: approved for anesthesia documented in this encounter Plan of Treatment Upcoming Encounters Date Type Specialty Care Team Description [facility] Radiology [facility] 2 Encounter Tyrell Rodriguez M.D. [address] [place] [phone] [facility] Gastroenterology and [facility] 2 Encounter Hepatology Y, M.B.BLilian Bedolla [address] [place] [phone] Surgery Gastroenterology and uLischantell Matthew ESOPHAG OGASTRODUODENOSCOPY 2 Hepatology Tyrell Rodriguez M.D. [address] [place] [phone] Telemedicine Transplant 2 Lab Laboratory Medicine Karin, 2 Adeline Gannon M.D., Ph.D. [address] [place] [phone] Lab Laboratory Medicine Karin, 2 Adeline Gannon M.D., Ph.D. [address] [place] [phone] Office Visit Transplant Karin, 2 Adeline Gannon M.D., Ph.D. [address] [place] [phone] Office Visit Community Internal [facility], 2 Medicine Vernell Perez [address] [place] [phone] Appointment Radiology Matthew Jerome 2 YVikBGraeme, Lilian [address] [place] [phone] Appointment Gastroenterology demian Silver, 2 Hepatology Yue Burciaga M.D. [address] [place] [phone] Office Visit Gastroenterology and Matthew Jerome 2 Hepatology Tyrell Rodriguez M.D. [address] [place] [phone] Appointment Radiology LuisMatthew abdul 2 Tyrell Rodriguez M.D. [address] [place] [phone] Scheduled Procedures Name Priority Associated [...] documented as of this encounter Care Teams Craft Recruiter Relationship Specialty Start Date End Date Ana Red P.A.-C. PCP - General Internal Medicine 12/01/[address] [place] [phone] [facility] 08/25/21 Ervin Schroeder MD Referring Provider Family Medicine 03/24/[address] [place] [phone] documented as of this encounter
--- OUTSIDE RECORDS SUMMARY | 2022-02-04 23:08 | XMS_ITS | Encounter Summary ---
:1990 Author Organization [facility] Address [address] [place] [address] Care Team Providers Name Role Phone Ana Red P.A.-C. Primary Care Provider [phone] Reason for Visit Reason Comments Pre-visit Testing Orders Encounter Details Date Type Department Care Team Description 01/28/2022 Clinical RST Yue Hung Pre-visit Testing Communication [address] [facility] Lilian Burciaga Orders [place], [place] [address] [place] [phone] [place] [phone] Social History Tobacco Use Types Packs/Day Years [...] do you attend islam or Never 2021 yazidi services? Do you belong to any clubs or No 07/17/2021 organizations such as islam groups, unions, fraHab Housing or athletic groups, or school groups? 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 [address] [place] [phone] Hospital Gastroenterology and Matthew Jerome 2 Encounter Hepatology Tyrell Rodriguez M.D. [address] [place] [phone] Surgery Gastroenterology and Matthew Jerome ESOPHAG OGASTRODUODENOSCOPY 2 Hepatology Natanael RodriguezLilian Bedolla [address] [place] [phone] Telemedicine Transplant 2 Lab Laboratory Medicine Karin, 2 Adeline Gannon M.D., Ph.D. [address] [place] [phone] Lab Laboratory Medicine Karin, 2 Adeline Gannon M.D., Ph.D. [address] [place] [phone] Office Visit Transplant Karin, 2 Adeline Gannon M.D., Ph.D. [address] [place] [address] [phone] Office Visit Community Internal [facility], 2 Medicine [place] PerezCSuma [address] [place] [phone] Appointment Radiology Matthew Jerome 2, M.BSumaBLilian Bedolla [address] [place] [address] [phone] Appointment Gastroenterology and Adrianne, 2 Hepatology Yue Burciaga M.D. [address] [place] [phone] Office Visit Gastroenterology and Matthew Jerome 2 Hepatology Joshua RodriguezBSumaBLilian Bedolla [address] [place] [phone] Appointment Radiology Mousa, Tyrell May 2, M.D. [address] [place] [phone] Scheduled Procedures Name Priority Associated Diagnoses Date/Time ESOPHAGOGASTRODUODENOSCOPY Cirrhosis Alc oholic (HCC) 02/10/2022 8:45 AM CDT Hypertension Portal (HCC) documented as of this encounter Visit Diagnoses Not on filedocumented in this encounter Additional Health Concerns Assessment Noted Time PHQ-9 Depression Total Score: 10/06/2021 5:00 PM CD T documented as of this encounter Care Teams Tire Buster Relationship Specialty Start Date End Date Ana Red P.A.-C. PCP - General Internal Medicine 12/01/[address] [place] [phone] [facility] [place] lab 08/25/21 Ervin Schroeder MD Referring Provider Family Medicine 03/24/[address] [place] [phone] documented as of this encounter
--- OUTSIDE RECORDS SUMMARY | 2022-02-04 23:08 | XMS_ITS | Encounter Summary ---
:1990 Author Organization [facility] Address [address] [place] [address] Care Team Providers Name Role Phone Ana Red P.A.-C. Primary Care Provider [phone] Reason for Visit Transplant (Routine) - Authorized Specialty Diagnoses / Procedures Referred By Contact Refer red To Contact Transplant Surgery / Matthew Jerome [facility] Elizabeth.BSumaBLilian Bedolla [address] [place] [phone] Referral ID Status Reason Start Date Expiration Date Visits V isits Requested Authorized [id number] Authorized 10/27/2021 10/27/2022 1 1 Encounter Details Date Type Department Care Team Description 01/28/2022 Virtual Visit Matthew Valenzuela Can celed (Patient: Center for M.BSumaBLilian Bedolla Hospitalized / ill) Transplantation and [address] [place] [address] in [place], [place] [phone] [address] [facility] [phone] [place] [phone] (Work) [phone] Social History Tobacco Use Types Packs/Day Years [...] do you attend buddhism or Never 2021 yarsanism services? 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 [address] [place] [phone] Hospital Gastroenterology and [facility] 2 Encounter Hepatology Tyrell Rodriguez M.D. [address] [place] [phone] Surgery Gastroenterology and [facility] ESOPHAG OGASTRODUODENOSCOPY 2 Hepatology YTyrell M.D. [address] [place] [phone] Telemedicine Transplant 2 Lab Laboratory Medicine Karin, 2 Adeline Gannon M.D., Ph.D. [address] [place] [phone] Lab Laboratory Medicine Karin, 2 Adeline Gannon M.D., Ph.D. [address] [place] [phone] Office Visit Transplant Karin, 2 Adeline Gannon M.D., Ph.D. [address] [place] [phone] Office Visit Community Internal [facility], 2 Medicine Vernell Perez [address] [place] [phone] Appointment Radiology [facility] 2 YTyrell, Lilian [address] [place] [phone] Appointment Gastroenterology and Adrianne, 2 Hepatology Yue Burciaga M.D. [address] [place] [phone] Office Visit Gastroenterology and Matthew Jerome 2 Hepatology Joshua RodriguezBSumaBLilian Bedolla [address] [place] [phone] Appointment Radiology LuisMatthew abdul 2 Joshua RodriguezBSumaBLilian Bedolla [address] [place] [phone] Scheduled Procedures Name Priority Associated Diagnoses Date/Time ESOPHAGOGASTRODUODENOSCOPY Cirrhosis Alc oholic (HCC) 02/10/2022 8:45 AM CDT Hypertension Portal (HCC) documented as of this encounter Visit Diagnoses Not on filedocumented in this encounter Additional Health Concerns Assessment Noted Time PHQ-9 Depression Total Score: 10 10/06/2021 5:00 PM CD T documented as of this encounter Care Teams Airplane Woodworker Relationship Specialty Start Date End Date Ana Red P.A.-C. PCP - General Internal Medicine 12/01/[address] [place] [phone] [facility] [address] lab 08/25/21 Ervin Schroeder MD Referring Provider Family Medicine 03/24/[address] [place] [phone] documented as of this encounter
--- OUTSIDE RECORDS SUMMARY | 2022-02-04 23:08 | XMS_ITS | Encounter Summary ---
:1990 Author Organization [facility] Address [address] [place] [address] Care Team Providers Name Role Phone Ana Red P.A.-C. Primary Care Provider [phone] Reason for Referral Outpatient (Routine) - Pending Review Specialty Diagnoses / Procedures Referred By Contact Refer red To Contact Diagnoses Cirrhosis Alcoholic (HCC) Hypertension Portal (HCC) Esophageal Varices Without Bleeding (HCC) Yue Silver M.D. [facility] Procedures EGD [address] [place] [address] [phone] Referral ID Status Reason Start Date Expiration Date Visits V isits Requested Authorized [id number] Pending 01/28/2022 01/28/2023 1 1 Review Outpatient (Routine) - Authorized Specialty Diagnoses / Procedures Referred By Contact Refer red To Contact Diagnoses Cirrhosis Alcoholic (HCC) Ascites Hepatic Failure Unspecified Without Coma (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 (HCC) Gerda Hull M.D., M.S. [address] [place] [address] [phone] Referral ID Status Reason Start Date Expiration Date Visits V isits Requested Authorized [id number] Authorized 01/27/2022 01/27/2023 1 1 Reason for [...] Expiration Date Visits Requ ested Visits Authorized [id number] 1 1 Encounter Details Date Type Department Care Team Description 01/20/20[address] - [facility] Cody Knight M.D. [address] [place] [address] [phone] Failure Renal Acute (Acute Kidney Injury ) (HCC) (Primary Dx); [facility] [address] [place] [address] [phone] Cirrhosis Alcoholic (HCC); [facility] [address] [place] [address] [phone] Alcohol Use Unspecified With Unspecified Alcohol Induced Disorder (HCC); Ervin Hamm M.D. [address] [place] [address] [phone] Ascites; Building, Fifth Hepatic Fail ure Unspecified Without Coma (HCC); Floor Hepatic Encephalopathy Witho ut Coma (HCC); [address] [place] [address] Debility [R53.81 (ICD-10-CM) ]; [place], [place] Decline Functi onal Status [R53.81 (ICD-10-CM)]; [id number] Thrombocytopenia (HCC); [phone] Ascites Chronic ; Cirrhosis Alcoh olic (HCC); [...] do you attend bahai or Never 2021 rastafarian services? 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 I personally reviewed the discharge [...] DISCHARGE SUMMARY BRIEF OVERVIEW Hospital: [facility] Discharge Provider: Ervin Mazariegos M.D. Primary Team: [facility] Medicine 3 ([facility]) Primary Care Providers: Ana Red P.A.-C. (General) 300 [facility] [place] [phone] Primary Care Provider Primary Care Provider Other [...] hospital problems. * DISCHARGE DISPOSITION Home-Health Care [facility] [6] ACTIVE ISSUES REQUIRING FOLLOW UP Recommendations: [...] Transplant 01/28/2022 2:00 PM LAB 01 [facility] Laboratory Medicine 01/28/2022 2:20 PM LAB 01 [facility] Laboratory Medicine 01/28/2022 2:45 PM Matthew Jerome M.B.B.S., M.D. Gastroenterology and Hepatology 02/05/2022 3:15 PM ROCH 02 RM 01 Radiology 02/10/2022 3:00 PM TXP PSYCHIATRY 01 [facility] Transplant 02/12/2022 9:20 AM LAB BLOOD [facility] LO Laboratory Medicine 02/12/2022 9:30 AM LAB URINE CONTAINER [facility] Laboratory Medicine 02/12/2022 11:00 AM TXP COUNSELOR [...] Jerome - Ask transplant clinic for a social professionals or social work case manager - Continue weekly AA meetings. Find a [...] the [facility] Medicine 3 ([facility]) Service. Please identify this service name if you call with questions after hospitalization. [facility] experts agree: You should get a COVID-19 vaccine as soon as it's available to you. The vaccines that we???re recommending have been approved for safe use. [facility] will continue to coordinate with state and local governments on future vaccine distribution phases. o If your primary care provider is at [facility] and you plan to receive your vaccination at [facility], please ensure that you have activated your Patient Portal at [facility] to allow [facility] to communicate to you about the scheduling [...] the vaccine. Discharge Instr - Sweetie Hurley PSumaT., D.P.T. - 01/27/2022 1:59 PM CDT Physical [...] Discharge information provided on 01/27/2022 Contact information: [facility], 5 Jose Raul, documented in this encounter [...] day. Apply to painful area on skin. lactulose (CHRONULAC) 20 Take 15 mL (10 [...] 01/30/2022 daily. furosemide (LASIX) 20 mg Take 1 tablet (20 mg 90 tablet 3 0 01/29/2022 02/02/2022 tabletIndications: total) by mouth Thrombocytopenia (HCC), daily. Return to Ascites Chronic, full 40mg dose on Cirrhosis Alcoholic Friday 02/02. (HCC), Hypertension Portal (HCC), Abnormal Liver Function Test spironolactone Take 1 tablet (50 mg 60 tablet 2 01/29/2022 02/02/2022 (ALDACTONE) 50 mg tablet total) by mouth daily. Return to full 100mg dose on Friday 02/02. documented as of this encounter Progress Notes Nora Kelly Pharm.D., R.Ph. - 01/29/2022 5:49 AM CDT [...] Silver M.D. - 01/28/2022 3:15 PM CDT T Medicine 3 ([facility]) PROGRESS NOTE SUBJECTIVE Christelle says she is [...] / PLAN Ms. Carias is hospitalized on [facility] Medicine 3 ([facility]) for evaluation and management of Failure Renal [...] marked acanthocytes and few schistocytes. Blood smear 01/25/22: No morphologic features of hemolysisare seen. No [...] 40mg # Dispo - Please provide a non-[facility] home health order for resumption of previous services by home health care for senior living once a week medication management on the [...] with [facility] Medicine 3 ([facility]) Supervisor [employer], Ervin Osorio M.D., who was present during judd portions of the evaluation today. Please page the [facility] Medicine 3 ([facility]) service pager at [phone] with any questions. T Carlotta Rader, DEL[place], LD - 01/28/2022 3:09 PM CDT Clinical [...] +1 generalized, +1-2 BLE edema noted per lip of shank cutter. Estimated Needs: Total Calorie Needs: 0743-2368 calories/day Method to Estimate Energy Needs: [place] (Basal to Basal + 20%) Weight Used [...] about patient's nutritional care please contact pager [phone] on weekdays or [phone] on weekends/holidays. Ervin Mazariegos M.D. - 01/28/2022 1:19 PM CDT [facility] Medicine 3 ([facility]) Supervisory Note I have seen and assessed the patient with the medical team and helped to formulate the plan of care.I have personally reviewed the relevant data in the patient's medical chart. I agree with the findings, assessment and plan as written in the note by Yeu Silver M.D. dated 01/28/2022. # Decompensated Alcoholic Cirrhosis with ascites, MELD-Na 28, Child Class C # Hepatic Encephalopathy # MOSHE, resolved. # Acute on Chronic Anemia # Macrocytosis # Low back pain # GERD Catai Carias is a 31-year-old female with a [...] our team's planof care. Counseling was provided [id number] at bedside regarding the plan of care [...] Treat general acute Onset Date: 01/20/22 Payor: [facility] [place] [facility] / Plan: [facility] [place] / Product [...] Modified independent Assessment/Delivery: Assessed Toilet Transfers Comments: Ltb-oi-[id number] transfers as above; patient initially requesting therapist [...] needs met and questions answered. Outcome Measures [facility] Inpatient Short Form: -[facility] Basic Mobility (V.2) How much help [...] 3-5 steps with a railing?: A Little -[facility] Basic Mobility (V.2) Raw Score: 23 -[facility] Basic Mobility (V.2) Standardized Score: 50.88 Interpretation: Clinicians answer the -[facility] Inpatient Short Form based on observed [...] min Total Treatment Time (min): 20 min (4264-2666) Allie Greer P.T., D.P.T. Harlan Monterroso, RSumaN. - 01/28/2022 7:22 AM CDT SUBJECTIVE Referral Data Discharge Planning: Reconnection of [facility] patient declined additional resources. Anticipated Needs Home [...] Selected Services Address Phone Fax Patient Preferred [facility] [address] [facility] [phone] -- Contact: Intake NURSING: - Complete documentation in the Discharge Navigator including Nursing Report Info and Facility/NextLevel of Care Info - Call report and arrange for the patient???s first visit. - Send required packet of dismissal information with patient, including After Visit Summary and advance directive. PRIMARY SERVICE: - Please provide a non-[facility] home health order for resumption of previous services by home health care for senior living once a week medication management on the [...] CDT [facility] Medicine 3 ([facility]) Supervisory Note I have seen and assessed [...] team's plan of care. Counseling was provided [id number] at bedside regarding the plan of care as stated above. I personally spent over half of a total 25 minutes in counseling and coordination of care as documented above. Gerda Shirley M.D., M.S. - 01/27/2022 11:56 AM CDT [facility] 3 ([facility]) PROGRESS NOTE SUBJECTIVE Patient had EGD with [...] / PLAN Ms. Carias is hospitalized on [facility] 3 ([facility]) for evaluation and management of Failure Renal [...] 40mg # Dispo - Please provide a [facility] home health order for resumption of previous services by home health care for senior living once a week medication management on the [...] with [facility] Medicine 3 ([facility]) Supervisor [employer], Ervin Osorio M.D., who was present during judd portions of the evaluation today. Please page the [facility] Medicine 3 ([facility]) service pager at [phone] with any questions. Nora Kelly Pharm.D., R.Ph. [...] Elevated reticulocyte count (6.67%). Haptoglobin (<14). Nora Kelly, Michelle., R.Ph. Ervin Mazariegos M.D. - 01/26/2022 2:01 PM CDT T Medicine 3 ([facility]) Supervisory Note I have seen and assessed [...] our team's planof care. Counseling was provided [id number] at bedside regarding the plan of care [...] note pulled forward below from 01/21/2022 by Pricing Associate Virginia Handley M.S., R.N. SUBJECTIVE Referral Data Discharge Planning: Reconnection of [facility] patient declined additional resources. Anticipated Needs Home [...] Selected Services Address Phone Fax Patient Preferred [facility] [address], [facility] [phone] -- Contact: Intake NURSING: - Complete documentation in the Discharge Navigator including Nursing Report Info and Facility/NextLevel of Care Info - Call report and arrange for the patient???s first visit. - Send required packet of dismissal information with patient, including After Visit Summary and advance directive. PRIMARY SERVICE: - Please provide a non-[facility] home health order for resumption of previous services by home health care for senior living once a week medication management on the [...] 01/26/2022 6:12 AM CDT [facility] 3 ([facility]) PROGRESS NOTE SUBJECTIVE Ms. Carias reports feeling [...] / PLAN Ms. Carias is hospitalized on [facility] 3 ([facility]) for evaluation and management of Failure Renal [...] 40mg # Dispo - Please provide a [facility] home health order for resumption of previous services by home health care for senior living once a week medication management on the [...] with [facility] Medicine 3 ([facility]) Supervisor [employer], Joshua Ayala M.D., who was present during judd portions of the evaluation today. Please page the [facility] Medicine 3 ([facility]) service pager at [phone] with any questions. Rhea Silver MD Nora Kelly, D., R.Ph. - 01/26/2022 5:37 AM CDT Pharmacist [...] 01/25/2022 6:06 AM CDT [facility] 3 ([facility]) PROGRESS NOTE SUBJECTIVE Ms. Carias reports significant [...] / PLAN Ms. Carias is hospitalized on [place] [address] ([facility]) for evaluation and management of Failure Renal [...] with [facility] Medicine 3 ([facility]) Supervisor [employer], Joshua Ayala M.D., who was present during judd portions of the evaluation today. Please page the [facility] Medicine 3 ([facility]) service pager at [phone] with any questions. Rhea Silver MD Associated attestation - Joshua Johnson M.D. - 01/25/2022 3:45 PM CDT I saw and evaluated the patient, participating in the judd portions of the service. I reviewed the resident/fellow???s note. I agree with the resident/fellow???s findings and plan. Yue Silver M.D. - 01/24/2022 7:11 AM CDT [facility] Medicine 3 ([facility]) PROGRESS NOTE SUBJECTIVE Ms. Carias reports feeling [...] / PLAN Ms. Carias is hospitalized on [place] [address] ([facility]) for evaluation and management of Failure Renal [...] with [facility] Medicine 3 ([facility]) Supervisor [employer], Joshua Ayala M.D., who was present during judd portions of the evaluation today. Please page the [facility] Medicine 3 ([facility]) service pager at [phone] with any questions. Rhea Silver MD Associated [...] PAGE MED 3 with any Questions Huang Diamodn MD Internal Medicine, PGY-1 Medicine 3 Service Pager [phone] Migue Spencer - 01/23/2022 11:24 AM CDT [facility] 3 ([facility]) PROGRESS NOTE SUBJECTIVE Ms. Carias did well [...] / PLAN Ms. Carias is hospitalized on [place] [address] ([facility]) for evaluation and management of Failure Renal [...] with [facility] Medicine 3 ([facility]) Supervisor [employer], Joshua Ayala M.D., who was present during judd portions of the evaluation today. Please page the [facility] Medicine 3 ([facility]) service pager at [phone] with any questions. Migue Spencer Third-Year Medical Student [employer] [facility] Joshua Francois M.D. - 01/23/2022 10:29 [...] had any bowel movements despite lactulose treatment. [place] making test was completed 37 seconds indicating [...] agree with the resident/fellow???s findings and plan. Nora Kelly, Pharm.D., R.Ph. - 01/22/2022 6:05 AM CDT [...] low platelets (58). Holding DVT ppx. Nora Kelly, PharmJules, R.Ph. T Sree Little M.D. - 01/21/2022 [...] Care Management Consult completed by SOPHIA Ramsey, SEXER on 01/12/22. SUBJECTIVE Referral Data Discharge Planning: Reconnection of [facility] patient declined additional resources. Anticipated Needs Home [...] Selected Services Address Phone Fax Patient Preferred [facility] [address] [facility] [phone] -- Contact: Intake NURSING: - Complete documentation in the Discharge Navigator including Nursing Report Info and Facility/NextLevel of Care Info - Call report and arrange for the patient???s first visit. - Send required packet of dismissal information with patient, including After Visit Summary and advance directive. PRIMARY SERVICE: - Please provide a non-[facility] home health order for resumption of previous services by home health care for senior living once a week medication management on the [...] arise. Virginia Handley M.S., R.N. Nora Kelly, D., R.Ph. - 01/21/2022 6:47 AM CDT Pharmacist [...] 01/20/2022 11:45 PM CDT T Medicine 3 ([facility]) Senior Admission Note SUBJECTIVE CHIEF COMPLAINT: MOSHE [...] will be formally staffed with the supervising securities consultant in the morning. Please page the [facility] 3 ([facility]) service pager with any questions. Kathy Ibrahim [...] Treat general acute Onset Date: 01/20/22 Payor: [facility] [place] [facility] / Plan: [facility] [place] [place] / Product [...] Pretransplant Recipient Evaluation Exam Deficiency Vitamin A Long-Term Use Of Opiate Analgesic Nicotine Dependence Cigarettes [...] >1 year Prior Mobility/Functional Transfers Level of [place]aston: Modified independent Gait Devices/Wheelchair Used: Front wheeled [...] needs met and questions answered. Outcome Measures [facility] Inpatient Short Form: -[facility] Basic Mobility (V.2) How much help [...] 3-5 steps with a railing?: A Lot AM-[facility] Basic Mobility (V.2) Raw Score: 19 AM-[facility] Basic Mobility (V.2) Standardized Score: 42.48 Interpretation: Clinicians answer the -[facility] Inpatient Short Form based on observed [...] Inpatient Appointment: 01/28/22 PT Plan Comments: Progress bmg-xt-dnedd transfers; progress ambulation; stair negotiation Treatment interventions may include: Treatment/Interventions: Therapeutic functional activity, Gait training, Self- care/home management Billing: Time Spent with Patient Evaluations PT Eval - Mod Complexity: 10 min Therapeutic Interventions Therapeutic Activity (min): 16 min Time Tracking Total Timed Units (min): 16 min Total Treatment Time (min): 26 min (2473-8533; Co-evaluation and treatment session with OT in [...] OT General Acute Onset Date: 01/20/22 Pay[place]: [facility] [place] / Plan: [facility] [place] / Product [...] Pretransplant Recipient Evaluation Exam Deficiency Vitamin A Long-Term Use Of Opiate Analgesic Nicotine Dependence Cigarettes [...] paint, color Prior Mobility/Functional Transfers Level of Gaston: Modified independent Gait Devices/Wheelchair Used: Front wheeled [...] Completion Date - OT: 01/27/22 Outcome Measures [facility] Inpatient Short Form: Putting on and [...] Standardized Score: 42.03 Interpretation: Clinicians answer the [facility] Inpatient Short Form based on observed [...] in shower, Grab bar(s) by toilet (Long-handled table worker packager; Long-handled sponge) Barriers to Discharge Home: Current [...] or questions was shared. OBJECTIVE Patient on MB 6 D 744 ASSESSMENT / PLAN ASSESSMENT [...] safe environment Outcome: Progressing Liberty Carty M.S., R.NSuma - 01/21/2022 6:40 PM CDT Shift Goals: [...] the day. Transferring using GB/pivot w/ 1-2. [facility] setup by CM. Patient states all needs [...] Care for this patient was transferred to ok at shift change. Please see associated documentation [...] an outpatient by her providers in the [place] area. She was advised to come to [...] 24 117/71 97 % Pain Score 01/20/222008 12 PHYSICAL EXAMINATION Constitutional: Nursing note and vitals [...] of fluid retention. She drinks 3 [place] cups a day. She is always thirsty [...] U Negative Ketone, POCT, U Trace(!) Specific [place], POCT, U 1.015 Blood, POCT, U Negative [...] 01/20/2022 8:06 PM CDT Pt presents to [place] [address] with back pain, rib cage pn, and [...] Encounters Date Type Specialty Care Team Description [facility] Radiology [facility] 2 Encounter Tyrell Rodriguez, Lilian [address] [place] [address] [phone] [facility] Gastroenterology and [facility] 2 Encounter Hepatology Tyrell Rodriguez, Lilian [address] [place] [phone] Surgery Gastroenterology and [facility] ESOPHAG OGASTRODUODENOSCOPY 2 Hepatology Tyrell Rodriguez, Lilian [address] [place] [phone] Telemedicine Transplant 2 Lab Laboratory Medicine Karin, Olinda Gannon M.D., Ph.D. [address] [place] [phone] Lab Laboratory Medicine Olinda Frazier M.D., Ph.D. [address] [place] [address] [phone] Office Visit Transplant Karin, 2 Adeline Gannon M.D., Ph.D. [address] [place] [phone] Office Visit [facility] 2 Medicine Vernell Perez [address] [place] [phone] Appointment Radiology Matthew Jerome 2 Y, M.B.B.S., MJules [address] [place] [address] [phone] Appointment Gastroenterology and Adrianne, 2 Hepatology Yue Burciaga M.D. [address] [place] [phone] Office Visit Gastroenterology and Matthew Jerome 2 Hepatology Jennifer M.B.B.S., MJules [address] [place] [phone] Appointment Radiology Matthew Jerome 2 Y M.B.B.SSuma, MJules [address] [place] [address] [phone] Pending Results Name Type Priority Associated Diagnoses Date/Ti ok Prepare Red Blood Blood Bank Routine 01/22/2022 [...] Type Priority Associated Diagnoses Order S chedule [facility] Outpatient Referral Routine Cirrhosis Alcoholic Ordered: [...] with Differential, Blood (01/29/2022 4:39 AM CDT) [facility] gist Method Time Signature Hemoglobin 8.0 [...] City/State/ZIP Code Phon e Number [facility] - [address] [place] [phone] [facility] [place] [address] Laboratories-[facility] 200 [facility] (ABNORMAL) Basic Metabolic Panel (01/29/2022 [...] M.D. LAB BLOOD ADD-ON Performing Organization Address City/[facility]/ZIP [facility] Phon e Number [facility] - [address] [place] [address] (ABNORMAL) Hematocrit (01/28/2022 1:36 PM CDT) P athologist Signature Hematocrit 22.0 (L) 35.5 - 44.9 01/28/2022 STMA % 2:10 PM CDT Specimen Anatomical Collection Method Collection Time Receive d Time (Source) Location / / Volume Laterality Blood (Blood, 01/28/2022 1:36 PM 01/29/20 2:08 Venous) CDT PM CDT Yue Silver M.D. LAB BLOOD ADD-ON Performing Organization Address City/[facility] Phon e Number [facility] - [address] STMA [place] [id number] [address] [place] Lower Extremity Veins Bilateral (01/28/2022 [...] man agement can be found on the [employer] site. Link [email or web address] Procedure Note Migue Talavera M.D. - 01/28/2022Form [...] man agement can be found on the [employer] site. Link [email or web address] IMPRESSION: 1. Negative for acute DVT within [...] City/State/ZIP Code Phon e Number [facility] - 200 [place], [place] [address] [facility] [place] [address] Laboratories-[facility] 200 [facility] (ABNORMAL) Basic Metabolic Panel (01/28/2022 5:28 AM [...] 22 6:19 Venous) CDT AM CDT Gerda K Xeros M.D., M.S. LAB BLOOD ADD-ON Performing Organization Address [facility] Phon e Number [facility] [facility] - [address] (ABNORMAL) CBC without Differential (01/28/2022 5:28 AM CDT) [facility] gist Method Time Signature Hemoglobin 7.4 [...] M.S. LAB BLOOD ADD-ON Performing Organization Address City/[facility] Phon e Number [facility] - [address] [place] Paracentesis with Imaging Guidance (01/27/2022 [...] with Differential, Blood (01/27/2022 4:47 AM CDT) [facility] Method Time Signature Hemoglobin 7.4 (L) [...] City/State/ZIP Code Phon e Number [facility] - 200 [place], [place] [address] [facility] [place] [address] Laboratories-[facility] 200 [facility] Basic Metabolic Panel (01/27/2022 4:47 AM CDT) [...] Laterality Blood (Blood, 01/27/2022 4:47 AM 01/28/20 5:59 Venous) CDT AM CDT Yue Silver M.D. LAB BLOOD ADD-ON Performing Organization Address City/[facility]/ZIP Code Phon e Number [facility] - [id number] [place] [address] (ABNORMAL) Cystatin C with Estimated GFR (01/27/2022 [...] Santillan LAB BLOOD ADD-ON Performing Organization Address City/[facility]/ZIP Code Phon e Number [facility] - 200 [place] [address] [facility] [place] [address] Laboratories-[address] (ABNORMAL) Coagulation Factor XI Activity Assay (01/26/2022 6:58 PM CDT) athologist Signature Coag Factor XI 18 (L) 55 - 150 % 01/27/2022 DT Assay, P 12:47 PM CDT Comment: ----ADDITIONAL INFORMATION---- This test has been modified from the man ufacturer's instructions. Its performance characteri stics were determined by [facility] in a manner co nsistent with CLIA requirements. This test has not bee n cleared or approved by the U.S. Food and Drug Admin istration. Specimen Anatomical Collection Method Collection Time Receive d Time (Source) Location / / Volume Laterality Blood 01/26/2022 6:58 PM 2 CDT 11:30 AM CDT Darrick DanielSSuma LAB BLOOD ADD-ON Performing Organization Address [facility] Phon e Number [facility] - 200 [place] [address] [facility] [place] [address] (ABNORMAL) Coagulation Factor XII Activity Assay (01/26/2022 6:58 PM CDT) athologist Signature Coag Factor XII 32 (L) 55 - 180 % 01/27/2022 DTL Assay, P 12:47 PM CDT Comment: ----ADDITIONAL INFORMATION---- This test has been modified from the man cecilacturer's instructions. Its performance characteri stics were determined by [facility] in a manner co nsistent with CLIA requirements. This test has not bee n cleared or approved by the U.S. Food and Drug Admin istration. Specimen Anatomical Collection Method Collection Time Receive d Time (Source) Location / / Volume Laterality Blood 01/26/2022 6:58 PM 2 CDT 11:30 AM CDT Darrick DanielSSuma LAB BLOOD ADD-ON Performing Organization Address City/[facility] Phon e Number [facility] - 200 [place], [place] [address] [facility] [place] [address] Laboratories-[address] (ABNORMAL) Coagulation Factor IX Activity Assay (01/26/2022 6:58 PM CDT) athologist Signature Coag Factor IX 29 (L) 65 - 140 % 01/27/2022 DTL Assay, P 12:47 PM CDT Comment: ----ADDITIONAL INFORMATION---- This test has been modified from the [place] ufactemeliar's instructions. Its performance characteri stics were determined by [facility] in a manner co nsistent with CLIA requirements. This test has not bee n cleared or approved by the U.S. Food and Drug Admin istration. Specimen Anatomical Collection Method Collection Time Receive d Time (Source) Location / / Volume Laterality Blood 01/26/2022 6:58 PM 2 CDT 11:30 AM CDT Darrick DanielSSuma LAB BLOOD ADD-ON Performing Organization Address City/[facility] Phon e Number [facility] - [address] [place], [place] [address] [facility] [place] [address] Laboratories-[facility] 200 [facility] Coagulation Factor VIII Activity Assay (01/26/2022 6:58 PM CDT) athologist Signature Coag Factor 93 55 - 200 % 01/27/2022 DT VIII Activity 12:19 PM CDT Assay, P Comment: ----ADDITIONAL INFORMATION---- This test has been modified from the [place] Jia.comacturer's instructions. Its performance characteri stics were determined by [facility] in a manner co nsistent with CLIA requirements. This test has not bee n cleared or approved by the U.S. Food and Drug Admin istration. Specimen Anatomical Collection Method Collection Time Receive d Time (Source) Location / / Volume Laterality Blood 01/26/2022 6:58 PM 2 CDT 11:30 AM CDT Darrick DanielSSuma LAB BLOOD ADD-ON Performing Organization Address City/[facility]/RUST Code Phon e Number [facility] - [address] [place], [place] [address] [facility] [place] [place] [address] [facility] 200 [facility] (ABNORMAL) Coag Factor X Assay, P (01/26/2022 6:58 PM CDT) athologist Signature Coag Factor X 29 (L) 70 - 150 % 01/27/2022 DTL Assay, P 12:19 PM CDT Comment: ----ADDITIONAL INFORMATION---- This test has been modified from the [place] Jia.comacturer's instructions. Its performance characteri stics were determined by [facility] in a manner co nsistent with CLIA requirements. This test has not bee n cleared or approved by the U.S. Food and Drug Admin istration. Specimen Anatomical Collection Method Collection Time Receive d Time (Source) Location / / Volume Laterality Blood 01/26/2022 6:58 PM 2 CDT 11:30 AM CDT Darrick Santillan LAB BLOOD ADD-ON Performing Organization Address City/[facility] Phon e Number [facility] - [address] [place], [place] [address] [facility] [place] [address] [facility] 200 [facility] (ABNORMAL) Coagulation Factor VII Activity Assay (01/26/2022 6:58 PM CDT) athologist Signature Coag Factor VII 13 (L) 65 - 180 % 01/27/2022 DTL Assay, P 12:19 PM CDT Comment: ----ADDITIONAL INFORMATION---- This test has been modified from the man cecilacturer's instructions. Its performance characteri stics were determined by [facility] in a manner co nsistent with CLIA requirements. This test has not bee n cleared or approved by the U.S. Food and Drug Admin istration. Specimen Anatomical Collection Method Collection Time Receive d Time (Source) Location / / Volume Laterality Blood 01/26/2022 6:58 PM 2 CDT 11:30 AM CDT Darrick Santillan LAB BLOOD ADD-ON Performing Organization Address City/[facility]/RUST Code Phon e Number [facility] - 200 [place], [place] [address] [facility] [place] [address] [facility] 200 [facility] (ABNORMAL) Coagulation Factor V Activity Assay (01/26/2022 6:58 PM CDT) athologist Signature Coag Factor V 18 (L) 70 - 165 % 01/27/2022 DTL Assay, P 12:19 PM CDT Comment: ----ADDITIONAL INFORMATION---- This test has been modified from the [employer] ufacturer's instructions. Its performance characteri stics were determined by [facility] in a manner co nsistent with CLIA requirements. This test has not bee n cleared or approved by the U.S. Food and Drug Admin istration. Specimen Anatomical Collection Method Collection Time Receive d Time (Source) Location / / Volume Laterality Blood 01/26/2022 6:58 PM 2 CDT 11:30 AM CDT Darrick DanielSSuma LAB BLOOD ADD-ON Performing Organization Address City/[facility] Phon e Number [facility] - [address] [place], [place] [address] [facility] [place] [address] Laboratories-[facility] 200 [facility] (ABNORMAL) Coagulation Factor II Activity Assay (01/26/2022 6:58 PM CDT) P athologist Signature Coag Factor II 28 (L) 75 - 145 % 01/27/2022 DTL Assay, P 12:19 PM CDT Comment: ----ADDITIONAL INFORMATION---- This test has been modified from the doug jacobacturer's instructions. Its performance characteri stics were determined by [facility] in a manner co nsistent with CLIA requirements. This test has not bee n cleared or approved by the U.S. Food and Drug Admin istration. Specimen Anatomical Collection Method Collection Time Receive d Time (Source) Location / / Volume Laterality Blood 01/26/2022 6:58 PM 2 CDT 11:30 AM CDT Darrick DanielSSuma LAB BLOOD ADD-ON Performing Organization Address City/[facility]/ZIP Code Phon e Number [facility] - 200 [place], [place] [address] [facility] [place] [address] [facility] 200 [facility] Reptilase Time, Plasma (01/26/2022 6:58 PM CDT) P athologist Signature Reptilase Time, 21.0 14.0 - 23.9 01/27/2022 DT P sec 11:03 AM CDT Comment: ----ADDITIONAL INFORMATION---- This test has been modified from the [place] Jia.comsusir's instructions. Its performance characteri stics were determined by [facility] in a manner co nsistent with CLIA requirements. This test has not bee n cleared or approved by the U.S. Food and Drug Admin istration. Specimen Anatomical Collection Method Collection Time Receive d Time (Source) Location / / Volume Laterality Blood 01/26/2022 6:58 PM 2 7:12 CDT AM CDT Darrick DanielSSuma LAB BLOOD ADD-ON Performing Organization Address City/[facility] Phon e Number [facility] - 200 [place], [place] [address] [facility] [place] [address] Laboratories-[facility] 200 [facility] PT Mix 1:1 (01/26/2022 6:58 PM CDT) athologist Signature PT Mix 1:1 11.8 9.4 - 12.5 01/27/2022 DTL sec 11:04 AM CDT Comment: ----ADDITIONAL INFORMATION---- This test has been modified from the [employer] cecilacturer's instructions. Its performance characteri stics were determined by [facility] in a manner co nsistent with CLIA requirements. This test has not bee n cleared or approved by the U.S. Food and Drug Admin istration. Specimen Anatomical Collection Method Collection Time Receive d Time (Source) Location / / Volume Laterality Blood 01/26/2022 6:58 PM 2 7:12 CDT AM CDT Darrick DanielSSuma LAB BLOOD ADD-ON Performing Organization Address City/[facility]/RUST Code Phon e Number [facility] - 200 [place], [place] [address] [facility] [place] [address] [facility] 200 [facility] APTT Mix 1:1 (01/26/2022 6:58 PM CDT) athologist Signature APTT Mix 1:1 28 25 - 37 sec 01/27/2022 DTL 11:04 AM CDT Comment: ----ADDITIONAL INFORMATION---- This test has been modified from the Labtripsusir's instructions. Its performance characteri stics were determined by [facility] in a manner co nsistent with CLIA requirements. This test has not bee n cleared or approved by the U.S. Food and Drug Admin istration. Specimen Anatomical Collection Method Collection Time Receive d Time (Source) Location / / Volume Laterality Blood 01/26/2022 6:58 PM 2 7:12 CDT AM CDT Darrick DanielS. LAB BLOOD ADD-ON Performing Organization Address City/State/ZIP Code Phon e Number [facility] - [address] [place], [place] [address] [facility] [place] [address] [facility] [address] [facility] Dilute Russells Viper Venom Time (DRVVT) (01/26/2022 6:58 PM CDT) athologist Signature DRVVT Screen 0.85 <1.20 ratio 01/27/2022 DTL Ratio 11:04 AM CDT Specimen Anatomical Collection Method Collection Time Receive d Time (Source) Location / / Volume Laterality Blood 01/26/2022 6:58 PM 2 7:12 CDT AM CDT Darrick DanielS. LAB BLOOD ADD-ON Performing Organization Address City/State/ZIP Code Phon e Number [facility] - [address] [place], [place] [address] [facility] [place] [address] [facility] [address] (ABNORMAL) PT-Fibrinogen (01/26/2022 6:58 PM CDT) athologist Signature PT-Fibrinogen, 241 (L) 261 - 595 01/27/2022 DTL P mg/dL 9:36 AM CDT Specimen Anatomical Collection Method Collection Time Receive d Time (Source) Location / / Volume Laterality Blood 01/26/2022 6:58 PM 2 7:12 CDT AM CDT Darrick DanielSSuma LAB BLOOD NON ADD-ON Performing Organization Address City/State/ZIP Code Phon e Number [facility] - [address] [place], [place] [address] [facility] [place] [address] (ABNORMAL) Soluble Fibrin Monomer (01/26/2022 6:58 PM CDT) P athologist Signature Soluble Fibrin 165 (H) <=8 mcg/mL 01/27/2022 DTL Monomer 10:57 AM CDT Comment: ----ADDITIONAL INFORMATION---- This test was developed and its performa nce characteristics determined by [facility] in a manner co nsistent [...] City/State/ZIP Code Phon e Number [facility] - [address] [place] [address] [facility] [place] [address] [address] (ABNORMAL) DIC/ICF Profile (01/26/2022 6:58 PM [...] test has been modified from the man ufnoah's instructions. Its performance characteri stics were determined by [facility] in a manner co nsistent [...] 01/28/20 7:12 Venous) CDT AM CDT Narrative [facility] - 01/27/2022 5:26 PM CDT Specimen Information: Specimen ID: [id number] Specimen Type: Blood Specimen Collection Start Date: 01/27/20 ??6:58 PM Specimen Received Date: 01/27/2022 ??7:1 2 AM Specimen ID: [id number] Specimen Type: Blood Specimen Collection Start Date: 01/27/20 ??6:58 PM Specimen Received Date: 01/27/2022 ??7:1 2 AM Specimen ID: [id number] Specimen Type: Blood Specimen Collection Start Date: 01/27/20 ??6:58 PM Specimen Received Date: 01/27/2022 ??7:1 2 AM Specimen ID: [id number] Specimen Type: Blood Specimen Collection Start Date: 01/27/20 ??6:58 PM Specimen Received Date: 01/27/2022 ??7:1 2 AM Specimen ID: [id number] Specimen Type: Blood Specimen Collection Start Date: 01/27/20 ??6:58 PM Specimen Received Date: 01/27/2022 ??7:1 2 AM Darrick Santillan LAB BLOOD NON ADD-ON Performing Organization Address City/State/ZIP Code Phon e Number [facility] [address] [place] [address] [facility] [place] [address] [facility] [address] (ABNORMAL) Copper (01/26/2022 6:57 PM CDT) P athologist Signature Copper, S 58 (L) 77 - 206 01/27/2022 SDSC mcg/dL 11:02 AM CDT Comment: ----ADDITIONAL INFORMATION---- This test was developed and its performa nce characteristics determined by [facility] in a manner consistent with CLIA requirements. This test has not been cleared or approved by the [place] Meg[place] d and Drug Administration. Specimen Anatomical Collection Method Collection Time Receive d Time (Source) Location / / Volume Laterality Blood (Blood, 01/26/2022 6:57 PM 01/28/20 22 7:45 Venous) CDT AM CDT Darrick Santillan LAB BLOOD NON ADD-ON Performing Organization Address City/[facility] Phon e Number [address] [place] [address] [address] CHAPPELL Zinc (01/26/2022 6:57 PM CDT) athologist Signature Zinc, S 66 60 - 106 01/27/2022 SDSC mcg/dL 11:02 AM CDT Comment: ----ADDITIONAL INFORMATION---- This test was developed and its performa nce characteristics determined by [facility] in a manner consistent with CLIA requirements. This test has not been cleared or approved by the U.[place]. Meg[place] d and Drug Administration. Specimen Anatomical Collection Method Collection Time Receive d Time (Source) Location / / Volume Laterality Blood (Blood, 01/26/2022 6:57 PM 01/28/20 22 7:45 Venous) CDT AM CDT Darrick Santillan LAB BLOOD NON ADD-ON Performing Organization Address City/[facility] Phon e Number [address] [place] [address] [address] CHAPPELL Upper GI Endoscopy (01/26/2022 3:18 PM CDT) Specimen (Source) Anatomical Collection Method Collection Time Re ceived Time Location / / Volume Laterality 01/26/2022 3:18 PM CDT Impressions [facility] - 01/26/2022 10:50 PM CDT Post-op Diagnoses: ? - Large (> 5 mm) esophageal varic es with no bleeding and no stigmata of ? recent bleeding. Banded x 6. ? - Portal hypertensive gastropathy (non-bleeding). ? - No specimens collected. Narrative [facility] - 01/26/2022 10:50 PM CDT Otto 6 [...] No immedia te complications. 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 pro cedure, including non-judd portions. Andreas Price MD 01/26/2022 10:50:15 PM This report has been signed electronical ly. Number of Addenda: 0 Huang Diamond M.D. GI PROCEDURE ORDERABLES Performing Organization Address City/State/ZIP Code Phon e Number [facility] [employer] [facility] [employer] [place] [employer] Fresh Frozen Plasma :INR >2: Invasive proc scheduled; 180 mL/hr (01/26/2022 11:20 AM CDT) Darrick Johnson.B.B.S. BLOOD TRANSFUSION ORDERABLES [employer] Fresh Frozen Plasma :INR >2: Invasive proc scheduled; 180 mL/hr, 2 Units (01/26/2022 11:20 AM CDT) Darrick Johnson.B.B.S. BLOOD TRANSFUSION ORDERABLES (ABNORMAL) Hematocrit (01/26/2022 11:16 AM CDT) P athologist Signature Hematocrit 21.3 (L) 35.5 - 44.9 01/26/2022 STMA % 11:25 AM CDT Specimen Anatomical Collection Method Collection Time Receive d Time (Source) Location / / Volume Laterality Blood (Blood, 01/26/2022 11:16 01/26/2022 Venous) AM CDT 11:22 AM CDT Gerda Hull M.D., M.S. LAB BLOOD ADD-ON Performing Organization Address City/[facility] Phon e Number [facility] - [address] [place] [address] (ABNORMAL) Hemoglobin (01/26/2022 11:16 AM CDT) athologist Signature Hemoglobin 7.4 (L) 11.6 - 15.0 01/26/2022 STMA g/dL 11:25 AM CDT Specimen Anatomical Collection Method Collection Time Receive d Time (Source) Location / / Volume Laterality Blood (Blood, 01/26/2022 11:16 01/26/2022 Venous) AM CDT 11:22 AM CDT Gerda Hull M.D., M.S. LAB BLOOD ADD-ON Performing Organization Address City/State/[facility] Phon e Number [facility] - [id number] [place] [address] [employer] Emergency Released Red Blood Cells (Uncrossmatched) [...] Signature Ventricular Rate 96 BPM MUSE ECG/Min MT Interval 166 ms MUSE QRSD Interval 88 ms MUSE QT Interval 364 ms MUSE QTC Interval 460 ms MUSE P [place] 56 degrees MUSE R [place] 50 degrees MUSE T Wave [place] 32 degrees MUSE Specimen Anatomical Collection Method [...] Prothrombin Time (PT) (01/26/2022 4:53 AM CDT) Patholo gist Method Time Signature Prothrombin 28.3 [...] City/State/ZIP Code Phon e Number [facility] - 200 [place], [place] [address] [place] [address] [place] [address] [address] (ABNORMAL) Basic Metabolic Panel (01/26/2022 4:53 [...] City/State/ZIP Code Phon e Number [facility] - [address] [place] [address] [place] [address] [place] [address] Laboratories-[address] (ABNORMAL) CBC with Differential, Blood (01/26/2022 4:53 [...] AM 01/27/20 6:05 Venous) CDT AM CDT Darrick Santillan LAB BLOOD ADD-ON Performing Organization Address City/State/ZIP Code Phon e Number [facility] - [address] [place], [place] [address] [facility] [place] [address] [facility] [address] Type and Screen (with [...] BANK TEST ORDERABL ES Performing Organization Address [facility] Phon e Number [place] [phone] 200 [facility] HIV-1/-2 Ag and Ab Screen, Plasma (01/25/2022 3:36 PM CDT) P athologist Signature HIV-1/-2 Ag Negative Negative 01/26/2022 [facility] and Ab Screen, 11:53 AM CDT P [...] - BLOOD ORD ERABLES Performing Organization Address City/[facility] Phon e Number [facility] [address] [place], [place] [address] [place] [address] [facility] [address] [place] Transfuse Red Blood Cells : (01/25/2022 1:08 PM CDT) Darrick Santillan BLOOD TRANSFUSION ORDERABLES Transfuse Red Blood Cells : , 1 Units (01/25/2022 1:08 PM CDT) Darrick Santillan BLOOD TRANSFUSION ORDERABLES (ABNORMAL) AST (Aspartate Aminotransferase) (01/25/2022 9:56 AM CDT) [facility] Method Time Signature Aspartate 62 (H) 8 - 43 01/25/2022 DTL Aminotransferase U/L 10:32 AM CDT (AST), P Specimen Anatomical Collection Method Collection Time Receive d Time (Source) Location / / Volume Laterality Blood 01/25/2022 9:56 AM 9:56 CDT AM CDT Darrick Santillan LAB BLOOD ADD-ON Performing Organization Address City/State/RUST Code Phon e Number [facility] - [address] [place] [address] [facility] [place] [address] Laboratories-[address] (ABNORMAL) CBC with Differential, Blood (01/25/2022 5:35 AM CDT) [facility] Method Time Signature Hemoglobin 6.2 (L) 11.6 [...] AM CDT Neutrophils SeeComment 1.56 - 01/25/2022 [facility] 6.45 7:03 AM CDT x10(9)/L Comment: Auto-diff results not valid. Se e manual differential. Specimen Anatomical Collection Method Collection Time Receive d Time (Source) Location / / Volume Laterality Blood (Blood, 01/25/2022 5:35 AM 01/26/20 5:57 Venous) CDT AM CDT Darrick Santillan LAB BLOOD ADD-ON Performing Organization Address City/State/ZIP Code Phon e Number [facility] - [address] [place], [place] [address] [place] [address] [facility] 200 [facility] (ABNORMAL) Basic Metabolic Panel (01/25/2022 5:35 AM CDT) P athologist Signature Potassium, S [...] Santillan LAB BLOOD ADD-ON Performing Organization Address City/[place] [facility]UST Code Phon e Number [facility] - [address] [place] [address] [place] [address] First [facility] (ABNORMAL) Haptoglobin (01/25/2022 5:35 AM CDT) [facility] Haptoglobin, S <14 (L) 30 - 200 01/26/2022 [facility] mg/dL 10:51 AM CDT Specimen Anatomical Collection Method Collection Time Receive d Time (Source) Location / / Volume Laterality Blood 01/25/2022 5:35 AM 2 6:58 CDT AM CDT Darrick Santillan LAB BLOOD ADD-ON Performing Organization Address City/[facility]/ZIP [facility] [place] Phon e Number [facility] [address] [place] [address] 05 [place], [place] [id number] [place] [address] [place] LD (Lactate Dehydrogenase) (01/25/2022 5:35 AM CDT) [facility] Monica LD 197 122 - 222 01/25/2022 DTL U/L 6:35 AM CDT Specimen Anatomical Collection Method Collection Time Receive d Time (Source) Location / / Volume Laterality Blood (Blood, 01/25/2022 5:35 AM 01/26/20 22 6:18 Venous) CDT AM CDT Darrick Santillan LAB BLOOD NON ADD-ON Performing Organization Address City/State/ZIP Code Phon e Number [facility] - [address] [place] [address] (ABNORMAL) SPSMA Result (01/25/2022 5:35 AM CDT) Analysis Performed At Patho logist [facility] Neutrophilic Segs 74 50 - 75 % 01/25/2022 [facility] 7:03 AM CDT Lymphocytes 17 (L) 18 - 42 % 01/25/2022 [facility] 7:03 AM CDT Monocytes 3 2 - 11 % 01/25/2022 [facility] 7:03 AM CDT Eosinophils 5 (H) 1 - 3 % 01/25/2022 [facility] 7:03 AM CDT Basophils 1 0 - 2 % 01/25/2022 [facility] 7:03 AM CDT Manual Absolute 2.96 1.56 - 01/25/2022 [facility] Neutrophil Count 6.45 7:03 AM CDT [...] Reviewed by: Ruth 01/25/2022 7:03 AM CDT [facility] Specimen Anatomical Collection Method Collection Time Receive d Time (Source) Location / / Volume Laterality Blood (Blood, 01/25/2022 5:35 AM 01/26/20 5:57 Venous) CDT AM CDT Darrick Santillan LAB BLOOD ADD-ON Performing Organization Address City/State/ZIP Code Phon e Number [facility] - [address] [place] [address] 559 05 [place] [address] [facility] 200 [facility] (ABNORMAL) Prothrombin Time (PT) (01/25/2022 5:35 AM CDT) [facility] Method Time Signature Prothrombin 31.9 (H) 9.4 [...] Santillan LAB BLOOD ADD-ON Performing Organization Address City/[facility] Phon e Number [facility] - [address] [place] [address] 05 [facility] [address] Magnesium (01/25/2022 5:30 AM CDT) P athologist Signature Magnesium, S 1.9 1.7 - 2.3 01/25/2022 DTL mg/dL 5:21 PM CDT Specimen Anatomical Collection Method Collection Time Receive d Time (Source) Location / / Volume Laterality Blood (Blood, 01/25/2022 5:30 AM 01/26/20 5:06 Venous) CDT PM CDT Darrick Santillan LAB BLOOD ADD-ON Performing Organization Address City/[facility]/RUST Code Phon e Number [facility] - [address] Direct Antiglobulin Test (Poly) (01/25/2022 5:30 AM CDT) [facility] Method Time Signature Direct Negative Negative 01/25/2022 STR Antiglobulin 1:15 PM CDT Test, Polyspecific Specimen Anatomical Collection Method Collection Time Receive d Time (Source) Location / / Volume Laterality Blood (Blood, 01/25/2022 5:30 AM 01/26/20 22 Venous) CDT 11:46 AM CDT Darrick Santillan LAB BLOOD BANK TEST ORDERABL ES Performing Organization Address City/[facility]/ZIP [facility] [place] Phon e Number [facility] - [address] [place] [address] 05 [facility] STR[address] [place] [address] [address] [facility] (ABNORMAL) Reticulocytes (01/25/2022 5:30 AM CDT) [facility] Method Time Signature Reticulocytes, B 6.67 (H) 0.60 - 01/25/2022 DTL 2.71 % 9:18 AM CDT Absolute 114.1 (H) 30.4 - 01/25/2022 DTL Reticulocyte 110.9 9:18 AM CDT x10(9)/L Specimen Anatomical Collection Method Collection Time Receive d Time (Source) Location / / Volume Laterality Blood (Blood, 01/25/2022 5:30 AM 01/26/20 9:03 Venous) CDT AM CDT Darrick Santillan LAB BLOOD ADD-ON Performing Organization Address City/[facility] Phon e Number [facility] - [address] [place], [place] [address] [facility] [place] [address] [facility] 200 [facility] (ABNORMAL) Dipstick, Urine (01/24/2022 3:32 PM CDT) [...] M.D. LAB URINE ORDERABLES Performing Organization Address [facility] Phon e Number [facility] - [address] [place], [place] [address] 05 [facility] [place] [address] [facility] 200 [facility] Osmolality, Urine (01/24/2022 3:32 PM CDT) P athologist Signature Osmolality, U 434 150 - 1150 01/24/2022 DTL mOsm/kg 4:29 PM CDT Specimen Anatomical Collection Method Collection Time Receive d Time (Source) Location / / Volume Laterality Urine 01/24/2022 3:32 PM 2 3:59 CDT PM CDT Yue Silver M.D. LAB URINE ORDERABLES Performing Organization Address City/[facility] Phon e Number [facility] - [address] [place], [place] [address] [place] [address] [place] [address] pH, Random, Urine (01/24/2022 3:32 PM CDT) athologist Signature pH, Random, U 6.0 4.5 - 8.0 01/24/2022 DTL 4:29 PM CDT Specimen Anatomical Collection Method Collection Time Receive d Time (Source) Location / / Volume Laterality Urine 01/24/2022 3:32 PM 2 3:59 CDT PM CDT Yue Silver M.D. LAB URINE ORDERABLES Performing Organization Address City/[facility] Phon e Number [facility] - [address] (ABNORMAL) Microscopic Manual (01/24/2022 3:32 PM [...] M.D. LAB URINE ORDERABLES Performing Organization Address [facility]/ZIP [facility] [place] Phon e Number [facility] - [address] Creatinine, Random, Urine (01/24/2022 3:32 PM CDT) athologist Signature Creatinine, 60 16 - 326 01/24/2022 DT Random, U mg/dL 4:50 PM CDT Specimen Anatomical Collection Method Collection Time Receive d Time (Source) Location / / Volume Laterality Urine (Urine, 01/24/2022 3:32 PM 01/25/20 3:59 Midstream) CDT PM CDT Yue Silver M.D. LAB URINE ORDERABLES Performing Organization Address [facility] Phon e Number [facility] - [address] Sodium, Random, Urine (01/24/2022 3:32 PM CDT) athologist [facility] Sodium, Random, <10 mmol/L 01/24/2022 DT U [...] M.D. LAB URINE ORDERABLES Performing Organization Address [facility] Phon e Number [facility] - [address] (ABNORMAL) Urinalysis with Microscopic: Urine, Midstream (01/24/2022 3:32 PM CDT) [facility] Method Time Signature Source Urine, Urine, 01/24/2022 [...] M.D. LAB URINE ORDERABLES Performing Organization Address City/[facility] Phon e Number [facility] - [address] (ABNORMAL) Bilirubin, Total (01/24/2022 1:35 PM CDT) P athologist Signature Bilirubin, 11.9 (H) <=1.2 01/24/2022 DTL Total, P mg/dL 2:33 PM CDT Specimen Anatomical Collection Method Collection Time Receive d Time (Source) Location / / Volume Laterality Blood 01/24/2022 1:35 PM 2 1:35 CDT PM CDT Darrick Santillan LAB BLOOD ADD-ON Performing Organization Address City/[facility] Phon e Number [facility] [address] (ABNORMAL) CBC without Differential (01/24/2022 5:22 AM CDT) [facility] Method Time Signature Hemoglobin 7.6 (L) 11.6 [...] City/State/ZIP Code Phon e Number [facility] - [address] [place] [address] 05 [facility] [place] [address] [facility] 200 [facility] (ABNORMAL) Basic Metabolic Panel (01/24/2022 5:22 AM [...] M.D. LAB BLOOD ADD-ON Performing Organization Address City/[facility]/RUST Code Phon e Number [facility] [address] (ABNORMAL) Bilirubin, Direct (01/24/2022 5:17 AM CDT) athologist Signature Bilirubin, 5.1 (H) 0.0 - 0.3 01/24/2022 DT Direct, S mg/dL 2:40 PM CDT Specimen Anatomical Collection Method Collection Time Receive d Time (Source) Location / / Volume Laterality Blood (Blood, 01/24/2022 5:17 AM 01/25/20 1:52 Venous) CDT PM CDT Darrick Santillan LAB BLOOD ADD-ON Performing Organization Address City/State/ZIP Code Phon e Number [address] (ABNORMAL) Cystatin C with Estimated GFR (01/24/2022 5:17 AM CDT) athologist Signature eGFR by 33 (L) >60 [...] City/State/ZIP Code Phon e Number [facility] - [address] [place], [place] [address] [place] [address] [place] [address] [facility] [address] Upper GI Endoscopy (01/23/2022 3:35 PM CDT) Specimen (Source) Anatomical Collection Method Collection Time Re ceived Time Location / / Volume Laterality 01/23/2022 3:35 PM CDT Impressions [employer] - 01/23/2022 4:08 PM CDT Post-op [...] examination. ? - No specimens collected. Narrative [employer] - 01/23/2022 4:08 PM CDT Otto [...] Organization Address City/State/ZIP Code Phon e Number [employer] [facility] [employer] (ABNORMAL) Prothrombin Time (PT) (01/23/2022 10:58 AM CDT) [facility]umes Method Time Signature Prothrombin 29.9 (H) 9.4 [...] City/State/ZIP Code Phon e Number [facility] - [address] [place], [place] [address] 05 [facility] [place] [address] [facility] [address] (ABNORMAL) Prothrombin Time (PT) (01/23/2022 10:58 AM CDT) [facility]umes Method Time Signature Prothrombin 31.5 (H) 9.4 - 12.5 01/23/2022 [facility] Time, P sec 11:12 AM CDT INR 2.8 0.9 - 1.1 01/23/2022 [facility] 11:12 AM CDT Comment: ----ADDITIONAL INFORMATION---- Standard intensity warfarin therapeutic range: 2.0 to 3.0 ?? High intensity warfarin therapeutic rang e: 2.5 to 3.5 Specimen Anatomical Collection Method Collection Time Receive d Time (Source) Location / / Volume Laterality Blood (Blood, 01/23/2022 10:58 01/23/2022 Venous) AM CDT 11:05 AM CDT Ikram-Ul Matias Santillan LAB BLOOD ADD-ON Performing Organization Address City/State/RUST Code Phon e Number [facility] - [address] [place], [place] [address] 05 [place] [address] [facility] [address] (ABNORMAL) Basic Metabolic Panel (01/23/2022 5:27 AM [...] City/State/ZIP Code Phon e Number [facility] - [address] [place], [place] [address] 05 [facility] [place] [address] [facility] [address] [facility] (ABNORMAL) CBC with Differential, Blood (01/23/2022 5:27 AM CDT) [facility] Method Time Signature Hemoglobin 7.1 (L) [...] Organization Address City/State/ZIP Code Phon e Number [facility] - [address] (ABNORMAL) Ammonia (01/23/2022 5:27 AM CDT) P athologist Signature Ammonia, P 109 (H) <=30 01/23/2022 DTL mcmol/L 6:11 AM CDT Specimen Anatomical Collection Method Collection Time Receive d Time (Source) Location / / Volume Laterality Blood (Blood, 01/23/2022 5:27 AM 01/24/20 5:41 Venous) CDT AM CDT Sree Little M.D. LAB BLOOD NON ADD-ON Performing Organization Address City/[facility]/ZIP Code Phon e Number [facility] - [address] (ABNORMAL) Hemoglobin (01/22/2022 10:18 PM CDT) [...] City/State/ZIP Code Phon e Number [facility] - [address] [place] [address] 05 [facility] [place] [address] [facility] [address] Transfuse Red Blood Cells : (01/22/2022 8:01 [...] City/State/ZIP Code Phon e Number [facility] - [address] [place], [place] [address] 05 [facility] [place] [address] [facility] 200 [facility] (ABNORMAL) CBC with Differential, Blood (01/22/2022 9:40 AM CDT) [facility] Method Time Signature Hemoglobin 6.0 (CL) 11.6 [...] 9:40 AM 9:58 CDT AM CDT Sree J Haemmerle M.D. LAB BLOOD ADD-ON Performing Organization Address City/[facility] Phon e Number [facility] - [address] [place], [place] [address] [facility] [place] [address] [facility] 200 [facility] Type and Screen (with reflex Antibody ID) (01/22/2022 9:39 AM CDT) [facility] Method Time Signature ABORh B Pos [...] BANK TEST ORDERABL ES Performing Organization Address [facility] Phon e Number [facility] - [address] [place], [place] [address] 05 [facility] [place] [address] [facility]-[address] (ABNORMAL) CBC with Differential, Blood (01/22/2022 9:39 AM CDT) [facility] Method Time Signature Hemoglobin 6.2 (L) 11.6 [...] City/State/ZIP Code Phon e Number [facility] - [address] [place], [place] [address] 05 [place] [address] [facility] 200 [facility] (ABNORMAL) Prothrombin Time (PT) (01/22/2022 5:22 AM CDT) [facility] gist Method Time Signature Prothrombin 31.0 [...] Laterality Blood (Blood, 01/22/2022 5:22 AM 01/23/20 22 5:37 Venous) CDT AM CDT Sree Little M.D. LAB BLOOD ADD-ON Performing Organization Address City/State/ZIP Code Phon e Number [facility] - [address] [place], [place] [address] [facility] [place] [address] [facility] [address] US Paracentesis with Imaging Guidance (01/21/2022 10:49 AM CDT) Anatomical Region Laterality Modality Abdomen, Ultrasound RST LOS, Ultrasound ARZ LOS, Procedure F LA N/A Ultrasound LOS, Abdominal FLA LOS, Procedural Specimen (Source) Anatomical Collection Method Collection Time Re ceived Time Location / / Volume Laterality 01/21/2022 10:27 AM CDT Impressions 01/21/2022 11:13 AM CDT Ultrasound-guided paracentesis. FACE MAN Narrative 01/21/2022 11:13 AM CDT EXAM: US [...] met. POST-PROCEDURE DIAGNOSIS: Ascites. IMPRESSION: Ultrasound-guided paracentesis. FACE MAN Matthew Becerril M.D. IMG US PROCEDURES Protein, [...] ical findings. All other fluids refer to [email or web address] for further inter pretive information. This test has been modified from the hunter guide's instructions. Its perform ance characteristics were determined by [facility] in a manner consistent with [...] City/State/ZIP Code Phon e Number [facility] - [address] [place], [place] [address] 05 [facility] [place] [address] [facility] [address] Cell Count and Differential, Body Fluid (01/21/2022 10:00 AM CDT) [facility] gist Method Time Signature Fluid Type [...] characteri stics were determined by [facility] in a manner co nsistent [...] AND STOOLS O JOSE Performing Organization Address [facility] Phon e Number [facility] - [address] [place], [place] [address] 05 [place] [address] Bacterial Culture, Aerobic + Susc (01/21/2022 [...] Fluid) Comment: Specimen Source Site: Fluid Narrative [facility] - 01/26/2022 7:48 AM CDT Bacterial Culture: Received Bactec aerob ic and Bactec anaerobic bottles Matthew Becerril M.D. LAB MICROBIOLOGY - GENERAL O JOSE Performing Organization Address City/[facility] Phon e Number [facility] - [address] [place], [place] [address] 05 [place], [place] [id number] [place] [address] (ABNORMAL) Comprehensive Metabolic Panel (01/21/2022 7:25 [...] City/State/ZIP Code Phon e Number [facility] - [address] [place], [place] [address] [facility] [place] [address] [facility] [address] (ABNORMAL) Cystatin C [...] M.D. LAB BLOOD ADD-ON Performing Organization Address City/State/RUST Code Phon e Number [facility] - [address] [place] [address] 05 [facility] [place] [address] [facility] 200 [facility] (ABNORMAL) CBC with Differential, Blood (01/21/2022 7:25 AM CDT) [facility] gist Method Time Signature Hemoglobin 6.7 [...] M.D. LAB BLOOD ADD-ON Performing Organization Address City/[facility] Phon e Number [facility] - [address] [place], [place] [address] [place] [address] (ABNORMAL) Iron and Total Iron-Binding Capacity (01/21/2022 [...] M.D. LAB BLOOD ADD-ON Performing Organization Address City/State/[facility] Phon e Number [facility] - [address] [place] [address] 05 [facility] [place] [address] [place] [address] [address] [facility] (ABNORMAL) Ferritin (01/21/2022 7:21 AM CDT) P athologist Signature Ferritin, S 564 (H) 11 - 307 01/22/2022 DTL mcg/L 5:18 PM CDT Specimen Anatomical Collection Method Collection Time Receive d Time (Source) Location / / Volume Laterality Blood (Blood, 01/21/2022 7:21 AM 01/23/20 22 4:23 Venous) CDT PM CDT Sree Little M.D. LAB BLOOD ADD-ON Performing Organization Address City/[facility] Phon e Number [facility] - [address] [place], [place] [address] [facility] [place] [address] (ABNORMAL) Hepatic Function Panel (01/21/2022 2:40 [...] Laterality Blood (Blood, 01/21/2022 2:40 AM 01/22/20 22 3:04 Venous) CDT AM CDT Haile Keith M.D. LAB BLOOD ADD-ON Performing Organization Address City/[facility]/RUST Code Phon e Number [facility] - [address] [place], [place] [address] 05 [place] [address] [facility] 200 [facility] Lipase (01/21/2022 2:40 AM CDT) P athologist Signature Lipase, S 26 13 - 60 U/L 01/21/2022 3:23 DTL AM CDT Specimen Anatomical Collection Method Collection Time Receive d Time (Source) Location / / Volume Laterality Blood (Blood, 01/21/2022 2:40 AM 01/22/20 3:05 Venous) CDT AM CDT Cody Knight M.D. LAB BLOOD ADD-ON Performing Organization Address City/State/ZIP Code Phon e Number [facility] - 200 [place], [place] [address] [place] [address] Abdomen Pelvis without IV Contrast [...] are new since 11/25/2021. Cody Knight M.D. [facility] CT PROCEDURES (ABNORMAL) Dipstick, POCT, Urine (01/20/2022 9:05 PM CDT) [facility] Method Time Signature Glucose, Negative Negative 01/20/2022 PCED POCT, U mg/dL 9:06 PM CDT Ketone, POCT, Trace (A) Negative 01/20/2022 PCED U mg/dL 9:06 PM CDT Specific 1.015 1.005 - 01/20/2022 [facility] [place], 1.030 9:06 PM CDT POCT, U Blood, [...] Code Phon e Number POC RST [facility] [address] [place] [address] OUTPATIENT LABS PCED [facility] [place] [address] [facility] 200 [facility] (ABNORMAL) Dipstick, Urine (01/20/2022 8:57 PM CDT) [...] City/State/ZIP Code Phon e Number [facility] - [address] [place] [address] 05 [facility] [place] [address] [facility] [address] [facility] pH, Urine (01/20/2022 8:57 PM CDT) P athologist Signature pH, U 5.5 4.5 - 8.0 01/20/2022 9:48 DTL PM CDT Specimen Anatomical Collection Method Collection Time Receive d Time (Source) Location / / Volume Laterality Urine 01/20/2022 8:57 PM 2 9:23 CDT PM CDT Cody Knight M.D. LAB URINE ORDERABLES Performing Organization Address City/[facility]/ZIP [facility] [place] Phon e Number [facility] - [address] [place], [place] [address] [place] [address] Osmolality, Urine (01/20/2022 8:57 PM CDT) P athologist Signature Osmolality, U 401 150 - 1150 01/20/2022 DTL mOsm/kg 9:48 PM CDT Specimen Anatomical Collection Method Collection Time Receive d Time (Source) Location / / Volume Laterality Urine 01/20/2022 8:57 PM 2 9:23 CDT PM CDT Cody Knight M.D. LAB URINE ORDERABLES Performing Organization Address [facility] Phon e Number [facility] - 200 [place], [place] [address] [place] [address] Microscopic Automated (01/20/2022 8:57 PM CDT) P [...] M.D. LAB URINE ORDERABLES Performing Organization Address City/[facility] Phon e Number [facility] - [address] [place], [place] [address] [place] [address] Gram Stain, Urine (01/20/2022 8:57 PM CDT) [...] M.D. LAB URINE ORDERABLES Performing Organization Address [facility] Phon e Number [facility] - [address] [place], [place] [address] [facility] [place] [address] Laboratories-[address] Bacterial Culture, Aerobic + Susc, Urine (01/20/2022 8:57 PM CDT) [facility] Flumes Method Time Signature Urine Culture No growth 01/22/2022 DT after 1 day 6:31 AM CDT of incubation. Specimen Anatomical Collection Method Collection Time Receive d Time (Source) Location / / Volume Laterality Urine (Urine, 01/20/2022 8:57 PM 01/21/20 Straight CDT 10:31 PM CDT Catheter) Comment: Specimen Source Site: Urine Cody Knight M.D. LAB MICROBIOLOGY - GENERAL O RDERABLES Performing Organization Address City/[facility] Phon e Number [facility] - [address] [place], [place] [address] [facility] [place] [address] Laboratories-[address] Urinalysis with Microscopic: Urine, Straight Catheter (01/20/2022 8:57 PM CDT) [facility] Flumes Method Time Signature Source Urine, 01/20/2022 DTL [...] City/State/ZIP Code Phon e Number [facility] - [address] [place], [place] [address] [facility] [place] [address] Laboratories-[facility] 200 [facility] (ABNORMAL) Venous Blood Gas and Electrolytes CG8+, [...] POCT ORDERABLES - DEVICE Performing Organization Address [facility] Phon e Number [facility] [address] [place], [place] [address] [place] [address] [facility] [address] [place] [address] Lactate, POCT (01/20/2022 8:51 PM CDT) athologist Signature Lactate, POCT 1.50 0.50 - 01/20/2022 PCLX 2.20 11:45 PM CDT mmol/L Sample Site, Venstick 01/20/2022 PCLX POCT 11:45 PM CDT Specimen Anatomical Collection Method Collection Time Receive d Time (Source) Location / / Volume Laterality Blood 01/20/2022 8:51 PM 2 CDT 11:46 PM CDT Unknown Provider LAB POCT ORDERABLES - DEVICE Performing Organization Address City/[facility] Phon e Number POC [facility] [address] [place] [address] [place] [address] [facility] [address] hCG (Human Chorionic Gonadotropin), Quantitative, (01/20/2022 8:49 PM CDT) P athologist Signature HCG, 0.5 <5 IU/L 01/20/2022 STMA Quantitative, 9:19 PM CDT , P Specimen Anatomical Collection Method Collection Time Receive d Time (Source) Location / / Volume Laterality Blood (Blood, 01/20/2022 8:49 PM 01/21/20 22 9:01 Venous) CDT PM CDT Cody Knight M.D. LAB BLOOD ADD-ON Performing Organization Address City/[facility]/ZIP [facility] Phon e Number [facility] - [address] [place], [place] [address] [facility] ST[place], [place] [address] [place] [address] Lactate, POCT (01/20/2022 8:49 PM CDT) Analysis Performed At Patho logist Time Signature Lactate, POCT Collected DEFAULT 01/20/2022 SMLX 8:49 PM CDT Specimen Anatomical Collection Method Collection Time Receive d Time (Source) Location / / Volume Laterality Blood (Blood, 01/20/2022 8:49 PM 01/21/20 22 8:49 Venous) CDT PM CDT Cody Knight M.D. LAB POCT ORDERABLES - DEVICE Performing Organization Address [facility]/ZIP Code Phon e Number [facility] - [address] [place], [place] [address] [facility] [place] [address] [place] [address] [address] [facility] Venous Blood Gas and Electrolytes CG8+, POCT [...] POCT ORDERABLES - DEVICE Performing Organization Address City/[facility]/ZIP Code Phon e Number [facility] - [address] [place], [place] [address] [facility] [place] [address] [address] (ABNORMAL) Basic Metabolic Panel (01/20/2022 8:49 [...] Organization Address City/State/ZIP Code Phon e Number [facility] - [address] [place] [address] [facility] [place] [address] Laboratories[address] documented in this encounter Visit Diagnoses [...] 75 g 75 g, intravenous, Once, On Wed01/24/22 at 1730, For 1 dose, If no [...] RSumaN.) 0831 (Given - Provider: Bere Garcia RSumaNSuma) 0900 (Giv en - Provider: Stacie Sullivan RGabby) 25 mcg, oral, Daily, First dose on [...] Provider: Juliana Larson R.N. - Reason: Patient/family refused)165 (Given - Provider: Katina Contreras R.N.)210 (Given - Provider: Elizabeth Ying.A.NSuma, R.N.) 0831 (Given - Provider: Bere Garcia R.N.)1157 (Given - Provider: Bere Garcia R.N.)1650 (Given - Provider: Bere Garcia R.N.)211 (Given - Provider: Gi Fitzpatrick R.N.) 0859 (Given - Provider: Stacie Sullivan R.N.)1200 (Due) 20 g, oral, 4 times daily, First dose (a fter last modification) on Wed01/26/22 at 1700 lidocaine 5 % 1 patch (LIDODERM) 0813 (Medication Appl ied - Provider: Marla Kelly R.N.)210 (Medication Removed - Provider: Vahe Jones M.A.NSuma, [...] 40 mg (PROTONIX) 0624 (Given - Provider: Andrew FreemanNSuma) 0641 (Given - Provider: Humera Sifuentes R.N.) 0620 (Given - Provider: Gi Fitzpatrick R.N.) 40 mg, oral, Daily before breakfast, Fir st dose on Wed01/21/22 at 0700, Swallow whole. Do NOT crush, chew, or split tablet. rifAXIMin tablet 550 mg (XIFAXAN) 14 (Given - Provid er: Marla Kelly R.N.)2100 (Given - Provider: Chano Ying, R.NSuma) 08 (Given - Provider: Bere Garcia R.N.)2110 (Given - Provider: Gi Fitzpatrick R.N.) 899 (Given - Provider: Stacie Sullivan R.N.) 550 mg, oral, 2 times daily, First dose on Wed01/21/22 at 0900, For 324 days, Indications: Prophylaxis, medical sodium chloride 0.9 % injection 3 mL 28 (Not Given - Provider: Marla Kelly R.N. [...] 0900 thiamine tablet 100 mg (VITAMIN B1) 08 (Given - Prov ider: Marla Kelly R.N.) 08 (Given - Provider: Bere Garcia R.N.) 09 (Giv en - Provider: Stacie Sullivan R.N.) 100 mg, oral, Daily, First dose on Wed01/21/22 at 0900 traZODone tablet 50 mg (DESYREL) 2100 (Given - Provide r: Chano Ying, R.NSuma) 2111 (Given - Provider: Gi Fitzpatrick R.N.) 50 mg, oral, Daily at bedtime, First dose on Wed01/21/22 at 2100 vitamin A capsule 3,000 mcg 08 (Given - Provid er: Bere Garcia R.N.) 3,000 mcg, oral, 3 times weekly (Once pe r day on Wed), First dose on Wed01/21/22 at 0900, For 109 days, Vitamin A (retinol): Units x 0.3 = mcg; 10,000 Units = 3,000 mcg Vitamin A (Supplemental B eta-carotene): Units x 0.3 = mcg Vitamin A (Dietary Beta-carotene): Units x 0.05 = mcg zinc sulfate capsule 220 mg (ZINCATE) 814 (Given - Pr ovider: Marla Kelly R.N.) 830 (Given - Provider: Bere Garcia R.N.) 09 (Giv en - Provider: Stacie Sullivan R.N.) 220 mg, oral, Daily with breakfast, Firs t dose on Wed01/21/22 at 0800, Doses listed in zinc sulfate. Each 220 mg of zinc sulfate contains 50 mg of elemental zinc. PRN Medication Order 01/27/2022 01/28/2022 01/29/2022 cyclobenzaprine tablet 5 mg (FLEXERIL) 114 (Given - P rovider: Paz Velasquez R.N.)2100 (Given - Provider: Chano Ying, R.N.) 0150 (Given - Provider: Humera Sifuentes RSumaNSuma) 5 mg, oral, Daily PRN, muscle spasms, Starting on Wed01/21/22 at 0605 fentaNYL injection 25 mcg (SUBLIMAZE) (CANCELED) 0453 (Given - Provider: Payam Sandoval R.N.) 25 mcg, intravenous, Every 2 min [...] 1622 ( Given - Provider: Katina Contreras R.N.) 1200 (Given - Provider: Bere Garcia R.N.) 1 mg, oral, Every 24 hours PRN, moderate pain or score 4-6 of 10, severe pain or score 7-10 of 10, Starting on Wed01/27/22 at 1330, For severe pain, only after trying lidocaine, heat, conservative management HYDROmorphone tablet 1 mg (DILAUDID) (CANCELED) 1650 (Given - Provider: Bere Garcia R.N.)2111 (Given - Provider: Gi Fitzpatrick RGabby) 0537 (Given - Provider: Gi Fitzpatrick R.N.)0856 (Given - Provider: Andrew ArroyoNSuma) 1 mg, oral, Every 4 hours PRN, [...] documented as of this encounter Care Teams Japanese Tutor Relationship Specialty Start Date End Date Ana Red P.A.-C. PCP - General Internal Medicine 12/01/[address] [place] [address] Santi [place] [phone] [facility] [place] lab 08/25/21 Ervin Schroeder MD Referring Provider Family Medicine 03/24/[address] [place], [place] [address]th [facility] [place] [phone] (work) documented as of this encounter
--- OUTSIDE RECORDS SUMMARY | 2022-02-04 23:08 | XMS_ITS | Encounter Summary ---
:1990 Author Organization [facility] Address [address] [place] [address] Care Team Providers Name Role Phone Ana Red P.A.-C. Primary Care Provider [phone] Reason for Visit Reason Comments Form Review [facility] med rec onciliation Encounter Details Date Type Department Care Team Description 01/22/2022 Clinical Communication Department of [facility], Form Review [facility] Internal Ana, ([facility] in P.A.-C. [facility] [address] reconciliation) [place] [address] [facility] [address] [facility] [place] [phone] [address] (Work) [phone] Social History Tobacco Use Types Packs/Day Years [...] do you attend buddhism or Never 2021 samaritan services? 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 Telephone Encounter - Marlene Ceron - 01/22/2022 1:21 PM CDT Form was emailed to Ana Red PA-C for electronic review/signature. SUPERVISOR TUBING: [facility] PHONE NUMBER: [phone] INFO REQUESTED: medication reconciliation INSTRUCTIONS: Fax form to [phone] documented in this encounter Plan of Treatment Upcoming Encounters Date Type Specialty Care Team Description Hospital Radiology Mousa, Matthew 2 Encounter Tyrell Rodriguez M.D. [address] [place] [phone] Hospital Gastroenterology and Mousa, Matthew 2 Encounter Hepatology Tyrell Rodriguez M.D. [address] [place] [phone] Surgery Gastroenterology and [facility], Matthew ESOPHAG OGASTRODUODENOSCOPY 2 Hepatology Tyrell Rodriguez M.D. [address] [place] [phone] Telemedicine Transplant 2 Lab Laboratory Medicine Olinda Frazier M.D., Ph.D. [address] [place] [phone] Lab Laboratory Medicine Olinda Frazier M.D., Ph.D. [address] [place] [phone] Office Visit Transplant Olinda Frazier M.D., Ph.D. [address] [place] [phone] Office Visit Community Internal [place], 2 Solitario Perez P.A.-C. [address] [place] [phone] Appointment Radiology Matthew Jerome 2 YJoshuaBSumaBGraeme, Lilian [address] [place] [phone] Appointment Gastroenterology and Adrianne, 2 Hepatology Yue Burciaga M.D. [address] [place] [phone] Office Visit Gastroenterology and Matthew Jerome 2 Hepatology Joshua RodriguezBSumaBLilian Bedolla [address] [place] [phone] Appointment Radiology Matthew Jerome 2 YJoshuaB.BLilian Bedolla [address] [place] [phone] Scheduled Procedures Name Priority Associated Diagnoses Date/Time ESOPHAGOGASTRODUODENOSCOPY Cirrhosis Alc oholic (HCC) 02/10/2022 8:45 AM CDT Hypertension Portal (HCC) documented as of this encounter Visit Diagnoses Not on filedocumented in this encounter Additional Health Concerns Assessment Noted Time PHQ-9 Depression Total Score: 10 10/06/2021 5:00 PM CD T documented as of this encounter Care Teams Felt Carbonizer Relationship Specialty Start Date End Date Ana Red P.A.-C. PCP - General Internal Medicine 12/01/21 300 [facility] [place] [phone] [facility]- [place] lab 08/25/21 Ervin Schroeder MD Referring Provider Family Medicine 03/24/[address] [place] [phone] documented as of this encounter
--- OUTSIDE RECORDS SUMMARY | 2022-02-04 23:09 | XMS_ITS | Encounter Summary ---
:1990 Author Organization [facility] Address [address] [place] [address] Care Team Providers Name Role Phone Ana Red P.A.-C. Primary Care Provider [phone] Encounter Details Date Type Department Care Team Description 01/17/2022 Clinical Communication Division of Mike, Gastroenterology in [place], [place] Ph.D. [address] [facility] [address] [place] [address] [place], [place] [phone] Social History Tobacco Use Types Packs/Day Years [...] do you attend restoration or Never 2021 synagogue services? 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 - 01/17/2022 6:56 PM CDT Paged by dupligraph operator regarding nose bleed for the last [...] Type Specialty Care Team Description Hospital Radiology [facility] 2 Encounter Tyrell Rodriguez M.D. [address] [place] [phone] Hospital Gastroenterology and [facility] 2 Encounter Hepatology Tyrell Rodriguez M.D. [address] [place] [phone] Surgery Gastroenterology and [facility] ESOPHAG OGASTRODUODENOSCOPY 2 Hepatology Tyrell Rodriguez M.D. [address] [place] [phone] Telemedicine Transplant 2 Lab Laboratory Medicine Karin, Olinda Gannon M.D., Ph.D. [address] [place] [phone] Lab Laboratory Medicine Olinda Frazier M.D., Ph.D. [address] [place] [phone] Office Visit Transplant Olinda Frazier M.D., Ph.D. [address] [place] [phone] Office Visit Community Internal [facility], 2 Solitario Perez P.A.-C. [address] [place] [phone] Appointment Radiology Matthew Jerome 2 Y M.B.B.SLilian Moise [address] [place] [phone] Appointment Gastroenterology and Adrianne, 2 Hepatology Yue Burciaga M.D. [address] [place] [phone] Office Visit Gastroenterology and Matthew Jerome 2 Hepatology Y MSumaB.B.SLilian Moise [address] [place] [phone] Appointment Radiology Matthew Jerome 2 Y M.B.B.SLilian Moise [address] [place] [phone] Scheduled Procedures Name Priority Associated Diagnoses Date/Time ESOPHAGOGASTRODUODENOSCOPY Cirrhosis Alc oholic (HCC) 02/10/2022 8:45 AM CDT Hypertension Portal (HCC) documented as of this encounter Visit Diagnoses Not on filedocumented in this encounter Additional Health Concerns Assessment Noted Time PHQ-9 Depression Total Score: 10 10/06/2021 5:00 PM CD T documented as of this encounter Care Teams Community Coordinator Relationship Specialty Start Date End Date Ana Red P.A.-C. PCP - General Internal Medicine 12/01/[address] [place] [phone] [facility]- [place] lab 08/25/21 Ervin Schroeder MD Referring Provider Family Medicine 03/24/[address] [place] [phone] documented as of this encounter
--- OUTSIDE RECORDS SUMMARY | 2022-02-04 23:09 | XMS_ITS | Encounter Summary ---
:1990 Author Organization [facility] Address [address] [place] [address] Care Team Providers Name Role Phone Ana Red P.A.-C. 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 lactulose (CHRONULAC) 20 Take 30 mL (20 g 8100 mL 01/2901/29/2022 gram/30 mL solution total) by mouth 3 [...] 50 mg tablet total) by mouth daily. spironolactone Take 1 tablet (50 mg 60 tablet 2 01/29/2022 02/02/2022 (ALDACTONE) 50 mg tablet total) by mouth daily. Return to full 100mg dose on Friday 02/02. documented as of this encounter Plan of Treatment Upcoming Encounters Date Type Specialty Care Team Description Hospital Radiology [facility] 2 Encounter Tyrell Rodriguez, Lilian [address] [place] [phone] [facility] Gastroenterology and [facility] 2 Encounter Hepatology Tyrell Rodriguez, Lilian [address] [place] [phone] Surgery Gastroenterology and [facility] ESOPHAG OGASTRODUODENOSCOPY 2 Hepatology Tyrell Rodriguez, Lilian [address] [place] [phone] Telemedicine Transplant 2 Lab Laboratory Medicine Karin, Olinda Gannon M.D., Ph.D. [address] [place] [phone] Lab Laboratory Medicine Olinda Frazier M.D., Ph.D. [address] [place] [phone] Office Visit Transplant Karin, 2 Adeline Gannon M.D., Ph.D. [address] [place] [phone] Office Visit Community Internal [facility], 2 Medicine Vernell Perez [address] [place] [phone] Appointment Radiology Matthew Jerome 2 YTyrell, Lilian [address] [place] [phone] Appointment Gastroenterology and Adrianne 2 Hepatology Yue Burciaga M.D. [address] [place] [phone] Office Visit Gastroenterology and Matthew Jerome 2 Hepatology Vik RodriguezBGraeme, Lilian [address] [place] [phone] Appointment Radiology Matthew Jerome 2 YVikBGraeme, Lilian [address] [place] [phone] Scheduled Procedures Name Priority Associated Diagnoses Date/Time [...] with Differential, Blood (01/20/2022 12:07 PM CDT) [facility] Method Time Signature Hemoglobin 7.4 [...] Organization Address City/State/ZIP Code Phon e Number [facility]- [address] [place] [address] [facility] [address] [place] [address] System in [place] [address] (ABNORMAL) Comprehensive Metabolic Panel [...] Organization Address City/State/ZIP Code Phon e Number [facility]- [address] [place] [address] [facility] [place] [address] System in [place] [address] documented in this encounter Visit Diagnoses Diagnosis Cirrhosis Alcoholic (HCC) Hypertension Portal (HCC) Hepatic Failure Unspecified Without Coma (HCC) Cirrhosis Alcoholic (HCC) Hypertension Portal (HCC) documented in this encounter Additional Health Concerns Assessment Noted Time PHQ-9 Depression Total Score: 10 10/06/2021 5:00 PM CD T documented as of this encounter Care Teams Executive Candidate Developer Relationship Specialty Start Date End Date Ana Red P.A.-C. PCP - General Internal Medicine 12/01/[address] [place] [phone] [facility] [place] lab 08/25/21 Ervin Schroeder MD Referring Provider Family Medicine 03/24/211979 [address], [place] [address] documented as of this encounter
--- OUTSIDE RECORDS SUMMARY | 2022-02-04 23:09 | XMS_ITS | Encounter Summary ---
:[address] [facility] Address [address] [place] [address] Care Team Providers Name Role Phone Ana Red SumaASuma. Primary Care Provider [phone] Encounter Details Date Type Department Care Team Description 01/19/2022 Orders Only Department of [facility] Ana Red , Internal Medicine in [place] 300 [facility] 300 [facility] [place] [phone] (Wo rk) Social History Tobacco [...] or relatives? How often do you attend yazdanism or Never 2021 adventism services? 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 [address] [place] [phone] Hospital Gastroenterology and Matthew Jerome 2 Encounter Hepatology Tyrell Rodriguez M.D. [address] [place] [phone] Surgery Gastroenterology and Queenie Matthew ESOPHAG OGASTRODUODENOSCOPY 2 Hepatology Vik RodriguezBLilian Bedolla [address] [place] [phone] Telemedicine Transplant 2 Lab Laboratory Medicine Karin, 2 Adeline Gannon M.D., Ph.D. [address] [place] [phone] Lab Laboratory Medicine Karin, 2 Adeline Gannon M.D., Ph.D. [address] [place] [phone] Office Visit Transplant Karin, 2 Adeline Gannon M.D., Ph.D. [address] [place] [address] [phone] Office Visit Community Internal [place], 2 Medicine Farida Perez-C. [address] [place] [phone] Appointment Radiology Matthew Jerome 2 Joshua RodriguezBSumaBLilian Bedolla [address] [place] [phone] Appointment Gastroenterology and Adrianne, 2 Hepatology Yue Burciaga M.D. [address] [place] [phone] Office Visit Gastroenterology and Matthew Jerome 2 Hepatology Joshua RodriguezBSumaBLilian Bedolla [address] [place] [phone] Appointment Radiology Matthew Jerome 2 YTyrell M.D. [address] [place] [phone] Scheduled Procedures Name Priority Associated Diagnoses Date/Time ESOPHAGOGASTRODUODENOSCOPY Cirrhosis Alc oholic (HCC) 02/10/2022 8:45 AM CDT Hypertension Portal (HCC) documented as of this encounter Visit Diagnoses Not on filedocumented in this encounter Additional Health Concerns Assessment Noted Time PHQ-9 Depression Total Score: 10/06/2021 5:00 PM CD T documented as of this encounter Care Teams Business Team Leader Relationship Specialty Start Date End Date Ana Red P.A.-C. PCP - General Internal Medicine 12/01/[address] [place] [phone] [facility]- [place] lab 08/25/21 Ervin Schroeder MD Referring Provider Family Medicine 03/24/[address] [place] [phone] documented as of this encounter
--- OUTSIDE RECORDS SUMMARY | 2022-02-04 23:09 | XMS_ITS | Encounter Summary ---
:1990 Author Organization [facility] Address [address] [place] [address] Care Team Providers Name Role Phone Ana Red P.A.-C. Primary Care Provider [phone] Reason for Visit Reason Comments Phone Contact Appointment LABs Encounter Details Date Type Department Care Team Description 01/16/2022 Clinical Ramirez Barajas, Phone Contact; Communication Center for Mitchell Rowland (Jagdeep Izaguirre) Transplantation and Lilian, Ph.D. Clinical [facility] [address] [place] [address] [facility] [phone] Social History Tobacco Use Types Packs/Day Years [...] do you attend buddhist or Never 2021 sikhism services? Do you [...] or the highest technical, or vocational p [facility] degree you have received? 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 OM sent to confirm appts. Telephone Encounter [...] labs. She will be completing some in [place] on 01/20. Could we get orders for [place] for the labs that she needs to complete? PASS: Please link new orders to 01/20 labs and add urine as close as possible. Thank you in advance documented in this encounter Plan of Treatment Upcoming Encounters Date Type Specialty Care Team Description [facility] Radiology Matthew Jerome 2 Encounter Tyrell Rodriguez M.D. [address] [place] [phone] [facility] Gastroenterology and Queenie Matthew 2 Encounter Hepatology Tyrell Rodriguez M.D. [address] [place] [phone] Surgery Gastroenterology and Matthew Jerome ESOPHAG OGASTRODUODENOSCOPY 2 Hepatology Kishore Rodriguez.B.SLilian Moise [address] [place] [phone] Telemedicine Transplant 2 Lab Laboratory Medicine Karin, 2 Adeline Gannon M.D., Ph.D. [address] [place] [phone] Lab Laboratory Medicine Karin, 2 Adeline Gannon M.D., Ph.D. [address] [place] [phone] Office Visit Transplant Karin, Olinda Gannon M.D., Ph.D. [address] [place] [phone] Office Visit Community Internal [facility], 2 Medicine Farida Perez-C. [address] [place] [address] [phone] Appointment Radiology Matthew Jerome 2 YElizabeth.B.B.SLilian Moise [address] [place] [phone] Appointment Gastroenterology and Adrianne, 2 Hepatology Yue Burciaga M.D. [address] [place] [phone] Office Visit Gastroenterology and Matthew Jerome 2 Hepatology Joshua RodriguezB.B.SLilian Moise [address] [place] [phone] Appointment Radiology Matthew Jerome 2 YTyrell, MCee. [address] [place] [phone] Scheduled Procedures Name Priority Associated Diagnoses Date/Time ESOPHAGOGASTRODUODENOSCOPY Cirrhosis Alc oholic (HCC) 02/10/2022 8:45 AM CDT Hypertension Portal (HCC) documented as of this encounter Visit Diagnoses Not on filedocumented in this encounter Additional Health Concerns Assessment Noted Time PHQ-9 Depression Total Score: 10/06/2021 5:00 PM CD T documented as of this encounter Care Teams Dental Front Office Assistant Relationship Specialty Start Date End Date Ana Red P.A.-C. PCP - General Internal Medicine 12/01/[address] [place] [phone] [facility] [place] lab 08/25/21 Ervin Schroeder MD Referring Provider Family Medicine 03/24/[address] [place] [address] documented as of this encounter
--- OUTSIDE RECORDS SUMMARY | 2022-02-04 23:09 | XMS_ITS | Encounter Summary ---
:1990 Author Organization [facility] Address [address] [place] [address] Care Team Providers Name Role Phone Ana Red P.A.-C. Primary Care Provider [phone] Encounter Details Date Type Department Care Team Description 01/16/2022 Clinical Communication Division of [facility] Gastroenterology in Lilian Schaefer [place], [place] [address] [facility] [address] [place] [phone] [phone] Social History Tobacco Use Types Packs/Day Years [...] do you attend voodoo or Never 2021 spiritism services? 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 [address] [place] [phone] Hospital Gastroenterology and Matthew Jerome 2 Encounter Hepatology Tyrell Rodriguez M.D. [address] [place] [address] [phone] Surgery Gastroenterology and Matthew Jerome ESOPHAG OGASTRODUODENOSCOPY 2 Hepatology Tyrell Rodriguez, M.D. [address] [place] [phone] Telemedicine Transplant 2 Lab Laboratory Medicine Karin, 2 Adeline Gannon M.D., Ph.D. [address] [place] [phone] Lab Laboratory Medicine Karin, 2 Adeline Gannon M.D., Ph.D. [address] [place] [phone] Office Visit Transplant Karin, 2 Adeline Gannon M.D., Ph.D. [address] [place] [phone] Office Visit Community Internal [facility], 2 Medicine Vernell Perez [address] [place] [phone] Appointment Radiology Matthew Jerome 2, M.BSumaBLilian Bedolla [address] [place] [phone] Appointment Gastroenterology and Adrianne, 2 Hepatology Yue Burciaga M.D. [address] [place] [phone] Office Visit Gastroenterology and Matthew Jerome 2 Hepatology Joshua RodriguezBSumaBSumaSLilian Moise [address] [place] [phone] Appointment Radiology Matthew Jerome 2 Tyrell Rodriguez M.D. [address] [place] [phone] Scheduled Procedures Name Priority Associated Diagnoses Date/Time ESOPHAGOGASTRODUODENOSCOPY Cirrhosis Alc oholic (HCC) 02/10/2022 8:45 AM CDT Hypertension Portal (HCC) documented as of this encounter Visit Diagnoses Not on filedocumented in this encounter Additional Health Concerns Assessment Noted Time PHQ-9 Depression Total Score: 10/06/2021 5:00 PM CD T documented as of this encounter Care Teams Pit Operator Relationship Specialty Start Date End Date Ana Red P.A.-C. PCP - General Internal Medicine 12/01/[address] [place] [phone] [facility] [place] lab 08/25/21 Ervin Schroeder MD Referring Provider Family Medicine 03/24/[address] [place] [address] documented as of this encounter
--- OUTSIDE RECORDS SUMMARY | 2022-02-04 23:09 | XMS_ITS | Encounter Summary ---
:[address] [facility] Address [address] [place] [address] Care Team Providers Name Role Phone Ana Red P.A.-C. Primary Care Provider [phone] Reason for Referral Physical Therapy (Routine) - Authorized Specialty Diagnoses / Procedures Referred By Contact Refer red To Contact Diagnoses Pain Low Back Unspecified Ana Red P.A.-C. [address] [facility] [place] [phone] Referral ID Status Reason Start Expiration Visits Visits Date Date Requested Authorized [id number] Authorized Service not 01/20/2022 01/20/2023 [address] [facility] Reason for Visit Reason Comments Hepatic [...] Expiration Date Visits Requ ested Visits Authorized [id number] Closed 01/13/2022 01/13/2023 1 1 Encounter Details Date Type Department Care Team Description 01/20/2022 Office Visit Department of [facility], Pain Low Back Unspecified (Primary Dx); Community Internal Frances PerezASuma Ortega. Cirrhosis Alcoholic (HCC); Medicine in [place] [address] [facility]; [place], [place] Long QT Syndrome; [address] [phone] Rhinitis Allergic; [place], [place] [phone] Alcohol Use Un specified With Unspecified Alcohol Induced Disorder (HCC) [phone] (Work) [phone] Social History Tobacco Use Types Packs/Day Years [...] do you attend scientologist or Never 2021 cheondoism services? 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 Unresponsiveness in ER. Patient is [...] post hospital follow-up. She was admitted to [facility] on 01/09/2022 and was discharged on 01/14/2022 [...] Pretransplant Recipient Evaluation Exam Deficiency Vitamin A Fdc Use Of Opiate Analgesic Nicotine Dependence Cigarettes [...] Long QT Syndrome Patient recently discharged from [facility] due to hepatic encephalopathy. She feels welltoday [...] week. She has a EGD scheduled in [place] for early January to assess for esophageal varices. #4 Pain Low Back Unspecified We put through a physical therapy order to [facility] today for back pain. I did refill flexeril for patient to use once daily. She is also using lidocaine patches lzio-lzs-ofuinjg and I did send these in for her via prescription but they are going through a prior authorization process. - External referral PT (non-[place]) #5 Rhinitis Allergic She is wondering if she can use an ymjt-gsi-cjgsdkx nasal spray for allergies. I recommended flonase. [...] Her home nurse is Misbah Crook with [facility]. Ana Red P.A.-C. Update: Notified of MOSHE on labs today by hospital provider. Patient has been contacted to report to the ED for albumin infusion and to hold her diuretics. documented in this encounter Plan of Treatment Upcoming Encounters Date Type Specialty Care Team Description [facility] Radiology Matthew Jerome 2 Encounter Tyrell Rodriguez M.D. [address] [place] [phone] [facility] Gastroenterology and Matthew Jerome 2 Encounter Hepatology Tyrell Rodriguez M.D. [address] [place] [phone] Surgery Gastroenterology and Matthew Jerome ESOPHAG OGASTRODUODENOSCOPY 2 Hepatology Joshua RodriguezBSumaB.SSuma, Lilian [address] [place] [phone] Telemedicine Transplant 2 Lab Laboratory Medicine Karin, Olinda Gannon M.D., Ph.D. [address] [place] [phone] Lab Laboratory Medicine Karin, 2 Adeline Gannon M.D., Ph.D. [address] [place] [phone] Office Visit Transplant Karin, Olinda Gannon M.D., Ph.D. [address] [place] [phone] Office Visit Community Internal [facility], 2 Medicine Vernell Perez [address] [place] [phone] Appointment Radiology Matthew Jerome 2 Jennifer M.B.B.SSuma, Lilian [address] [place] [phone] Appointment Gastroenterology and Adrianne, 2 Hepatology Yue Burciaga M.D. [address] [place] [phone] Office Visit Gastroenterology and Matthew Jerome 2 Hepatology Joshua RodriguezB.B.SSuma, Lilian [address] [place] [address], [place] [phone] Appointment Radiology Matthew Jerome 2 YTyrell M.D. [address] [place] [phone] Scheduled Procedures Name Priority Associated Diagnoses Date/Time [...] documented as of this encounter Care Teams Room Service Waiter Relationship Specialty Start Date End Date Ana Red P.A.-C. PCP - General Internal Medicine 12/01/[address] [place] [address] [phone] [facility]- [place] lab 08/25/21 Ervin Schroeder MD Referring Provider Family Medicine 03/24/[address] [place] [address] documented as of this encounter
--- OUTSIDE RECORDS SUMMARY | 2022-02-04 23:09 | XMS_ITS | Encounter Summary ---
:1990 Author Organization [facility] Address [address] [place] [address] Care Team Providers Name Role Phone Ana Red P.A.-C. Primary Care Provider [phone] Reason for Visit Reason Comments Post Hospital Follow-up Encounter Details Date Type Department Care Team Description 01/15/2022 Clinical Communication Department of [facility] Internal Ciara Johnson RSumaNSuma Follow-up Medicine in [address] [place] [phone] 300 [facility] [phone] [place], [place] (Work) [phone] Social History Tobacco Use [...] do you attend baptism or Never 2021 baptism services? Do you belong to any clubs or No 07/17/2021 organizations such as baptism groups, unions, fraVormetric or athletic groups, or school groups? 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 - 01/15/2022 1:13 PM CDT SUBJECTIVE CHIEF [...] Medical Care Coordination Program and needs the [facility] call to be completed. Patient was dismissed from the hospital on 01/14/22 at 1748. documented in this encounter Plan of Treatment Upcoming Encounters Date Type Specialty Care Team Description [facility] Radiology [facility] 2 Encounter Tyrell Rodriguez M.D. [address] [place] [phone] [facility] Gastroenterology and [facility] 2 Encounter Hepatology Tyrell Rodriguez, Lilian [address] [place] [address] [phone] Surgery Gastroenterology and [facility] ESOPHAG OGASTRODUODENOSCOPY 2 Hepatology Vik RodriguezB.Kath, Lilian [address] [place] [phone] Telemedicine Transplant 2 Lab Laboratory Medicine Karin, Olinda Gannon M.D., Ph.D. [address] [place] [address] [phone] Lab Laboratory Medicine Olinda Frazier M.D., Ph.D. [address] [place] [phone] Office Visit Transplant Karin, 2 Adeline Gannon M.D., Ph.D. [address] [place] [phone] Office Visit Community Internal Neda, Olinda Perez P.A.-C. [address] [place] [address] [phone] Appointment Radiology Matthew Jerome 2 YTyrell, Lilian [address] [place] [phone] Appointment Gastroenterology and Adrianne, 2 Hepatology Yue Burciaga M.D. [address] [place] [phone] Office Visit Gastroenterology and Matthew Jerome 2 Hepatology Joshua RodriguezBSumaBLilian Bedolla [address] [place] [address] [phone] Appointment Radiology Matthew Jerome 2 YJoshuaBSumaBLilian Bedolla [address] [place] [phone] Scheduled Procedures Name Priority Associated Diagnoses Date/Time ESOPHAGOGASTRODUODENOSCOPY Cirrhosis Alc oholic (HCC) 02/10/2022 8:45 AM CDT Hypertension Portal (HCC) documented as of this encounter Visit Diagnoses Not on filedocumented in this encounter Additional Health Concerns Assessment Noted Time PHQ-9 Depression Total Score: 10 10/06/2021 5:00 PM CD T documented as of this encounter Care Teams Planisher Relationship Specialty Start Date End Date Ana Red P.A.-C. PCP - General Internal Medicine 12/01/[address] [place] [address] [place] [phone] [facility] 08/25/21 Ervin Schroeder MD Referring Provider Family Medicine 03/24/[address] [place] [address] CharlemontADI almaraz [phone] documented as of this encounter
--- OUTSIDE RECORDS SUMMARY | 2022-02-04 23:09 | XMS_ITS | Encounter Summary ---
:1990 Author Organization [facility] Address [address] [place] [address] Care Team Providers Name Role Phone Ana Red P.A.-C. Primary Care Provider [phone] Encounter Details Date Type Department Care Team Description 01/19/2022 Clinical Communication [facility] Farida Perez Medicine in [address] [phone] [place], [place] [phone] (Work) [phone] Social History Tobacco Use Types Packs/Day Years [...] do you attend mu-ism or Never 2021 roman catholic services? 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 [phone] Is it okay to leave a detailed message? yes What is the patient's request? Can she go back up to 100 mg of Lasix? Medication name/dose: furosemide (LASIX) 20 mg tablet Recent changes/new symptoms/side effects: new water retention in legs What pharmacy are you using today? [facility] Additional comments (if any): Last week patient was in [place] and they cut her furosemide (LASIX)20 mg [...] symptoms or side effects, please route to LINE CONTROLLER pool of prescribing provider - if new symptoms or having side effects, please transfer to off-site triage ([phone]) documented in this encounter Plan of Treatment Upcoming Encounters Date Type Specialty Care Team Description [facility] Radiology Matthew Jerome 2 Encounter Tyrell Rodriguez M.D. [address] [place] [phone] [facility] Gastroenterology and Mousa, Matthew 2 Encounter Hepatology Tyrell Rodriguez M.D. [address] [place] [phone] Surgery Gastroenterology and Mousa, Matthew ESOPHAG OGASTRODUODENOSCOPY 2 Hepatology Tyrell Rodriguez M.D. [address] [place] [phone] Telemedicine Transplant 2 Lab Laboratory Medicine Karin, 2 Adeline Gannon M.D., Ph.D. [address] [place] [phone] Lab Laboratory Medicine Karin, 2 Adeline Gannon M.D., Ph.D. [address] [place] [phone] Office Visit Transplant Karin, 2 Adeline Gannon M.D., Ph.D. [address] [place] [phone] Office Visit Community Internal [facility] [place] [facility], 2 Medicine Carlotta PerezCSuma [address] [place] [phone] Appointment Radiology Queenie, Matthew 2 Tyrell Rodriguez M.D. [address] [place] [phone] Appointment Gastroenterology and Adrianne, 2 Hepatology Yue Burciaga M.D. [address] [place] [phone] Office Visit Gastroenterology and Matthew Jerome 2 Hepatology YTyrell M.D. [address] [place] [phone] Appointment Radiology LuisMatthew abdul 2 YTyrell M.D. [address] [place] [address] [phone] Scheduled Procedures Name Priority Associated Diagnoses Date/Time ESOPHAGOGASTRODUODENOSCOPY Cirrhosis Alc oholic (HCC) 02/10/2022 8:45 AM CDT Hypertension Portal (HCC) documented as of this encounter Visit Diagnoses Not on filedocumented in this encounter Additional Health Concerns Assessment Noted Time PHQ-9 Depression Total Score: 10 10/06/2021 5:00 PM CD T documented as of this encounter Care Teams Commercial Trailer Truck Driver Relationship Specialty Start Date End Date Ana Red P.A.-C. PCP - General Internal Medicine 12/01/[address] [place] [phone] [facility]- [place] lab 08/25/21 Ervin Schroeder MD Referring Provider Family Medicine 03/24/[address] [place] [address] documented as of this encounter
--- OUTSIDE RECORDS SUMMARY | 2022-02-04 23:09 | XMS_ITS | Encounter Summary ---
:1990 Author Organization [facility] Address [address] [place] [address] Care Team Providers Name Role Phone Ana Red P.A.-C. Primary Care Provider [phone] Reason for Visit Reason Comments Phone Contact Encounter Details Date Type Department Care Team Description 01/15/2022 Clinical Ramirez Womack, Phone Contact Communication Center for [facility] Transplantation and Clinical Regeneration in [facility] pedro [address] [place] [address] Social History Tobacco Use Types Packs/Day Years [...] do you attend alevism or Never 2021 muslim services? Do you belong to any clubs or No 07/17/2021 organizations such as alevism groups, unions, fraUniversity of California, San [place] or athletic groups, or school groups? 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 Pt oked confirming by OM. Telephone Encounter - Parris Del Rio - 01/15/2022 1:46 PM CDT Pre- Patient returning a call to schedule her appts. She can be reached at [phone]. documented in this encounter Plan of Treatment Upcoming Encounters Date Type Specialty Care Team Description Hospital Radiology Matthew Jerome 2 Encounter YTyrell, Lilian [address] [place] [phone] Hospital Gastroenterology and [facility], Matthew 2 Encounter Hepatology YTyrell M.D. [address] [place] [phone] Surgery Gastroenterology and [facility] ESOPHAG OGASTRODUODENOSCOPY 2 Hepatology YTyrell M.D. [address] [place] [phone] Telemedicine Transplant 2 Lab Laboratory Medicine Karin, 2 Adeline Gannon M.D., Ph.D. [address] [place] [address] [phone] Lab Laboratory Medicine Karin, 2 Adeline Gannon M.D., Ph.D. [address] [place] [address] [phone] Office Visit Transplant Karin, 2 Adeline Gannon M.D., Ph.D. [address] [place] [phone] Office Visit Community Internal [facility], 2 Medicine Vernell Perez [address] [place] [phone] Appointment Radiology [facility] 2 Y, Tyrell, Lilian [address] [place] [phone] Appointment Gastroenterology and Adrianne, 2 Hepatology Yue Burciaga M.D. [address] [place] [phone] Office Visit Gastroenterology and Matthew Jerome 2 Hepatology Joshua RodriguezBSumaBLilian Bedolla [address] [place] [phone] Appointment Radiology LuisMatthew abdul 2 YJoshuaB.BLilian Bedolla [address] [place] [phone] Scheduled Procedures Name Priority Associated Diagnoses Date/Time ESOPHAGOGASTRODUODENOSCOPY Cirrhosis Alc oholic (HCC) 02/10/2022 8:45 AM CDT Hypertension Portal (HCC) documented as of this encounter Visit Diagnoses Not on filedocumented in this encounter Additional Health Concerns Assessment Noted Time PHQ-9 Depression Total Score: 10 10/06/2021 5:00 PM CD T documented as of this encounter Care Teams Supervisor Burling And Joining Relationship Specialty Start Date End Date Ana Red P.A.-C. PCP - General Internal Medicine 12/01/[address] [place] [phone] [facility]- [place] lab 08/25/21 Ervin Schroeder MD Referring Provider Family Medicine 03/24/[address] [place] [phone] documented as of this encounter
--- OUTSIDE RECORDS SUMMARY | 2022-02-04 23:09 | XMS_ITS | Encounter Summary ---
:1990 Author Organization [facility] Address [address] [place] [address] Care Team Providers Name Role Phone Ana Red P.A.-C. Primary Care Provider Reason for Visit Reason Comments Med Refill Encounter Details Date Type Department Care Team Description 01/20/2022 Refill Department of [facility] Ana Red , Med Refill Internal Medicine in [place], [place] 300 [facility] 300 [place] [address] [place] [address] 6319 [phone] Social History Tobacco Use Types Packs/Day Years [...] or relatives? How often do you attend restorationism or Never 2021 uatsdin services? Do you belong to any clubs or No 07/17/2021 organizations such as restorationism groups, unions, fraAppetite+ or athletic groups, or school groups? 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 [address] [place] [phone] Surgery Gastroenterology and Queenie Matthew ESOPHAG OGASTRODUODENOSCOPY 2 Hepatology Tyrell Rodriguez M.D. [address] [place] [phone] Telemedicine Transplant 2 Lab Laboratory Medicine Karin, 2 Adeline Gannon M.D., Ph.D. [address] [place] [phone] Lab Laboratory Medicine Karin, 2 Adeline Gannon M.D., Ph.D. [address] [place] [phone] Office Visit Transplant Karin, 2 Adeline Gannon M.D., Ph.D. [address] [place] [phone] Office Visit Community Internal [facility], 2 Medicine Farida Perez-CSuma [address] [place] [phone] Appointment Radiology Mtathew Jerome 2 Tyrell Rodriguez M.D. [address] [place] [phone] Appointment Gastroenterology and Adrianne, 2 Hepatology Yue Burciaga M.D. [address] [place] [phone] Office Visit Gastroenterology and Luischantell Matthew 2 Hepatology Vik RodriguezBLilian Bedolla [address] [place] [phone] Appointment Radiology Matthew Jreome 2 YTyrell M.D. [address] [place] [phone] Scheduled Procedures Name Priority Associated Diagnoses Date/Time ESOPHAGOGASTRODUODENOSCOPY Cirrhosis Alc oholic (HCC) 02/10/2022 8:45 AM CDT Hypertension Portal (HCC) documented as of this encounter Visit Diagnoses Not on filedocumented in this encounter Additional Health Concerns Assessment Noted Time PHQ-9 Depression Total Score: 10/06/2021 5:00 PM CD T documented as of this encounter Care Teams Rod Straightener Relationship Specialty Start Date End Date Ana Rde P.A.-C. PCP - General Internal Medicine 12/01/[address] [place] [phone] [facility] [place] lab 08/25/21 Ervin Schroeder MD Referring Provider Family Medicine 03/24/[address] [place] [address] documented as of this encounter
--- OUTSIDE RECORDS SUMMARY | 2022-02-04 23:09 | XMS_ITS | Encounter Summary ---
:1990 Author Organization [facility] Address [address] [place] [address] Care Team Providers Name Role Phone Ana Red P.A.-C. Primary Care Provider [phone] Encounter Details Date Type Department Care Team Description 01/20/2022 Orders Only Pharmacy Prior Auth Lina Raphael [phone] Social History Tobacco Use Types Packs/Day Years [...] do you attend yarsanism or Never 2021 methodist services? 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 [address] [place] [phone] Lab Laboratory Medicine Charlesalexa, 2 Adeline Gannon M.D., Ph.D. [address] [place] [phone] Office Visit Transplant Karin, 2 Adeline Gannon M.D., Ph.D. [address] [place] [phone] Office Visit Community Internal [facility], 2 Medicine Vernell Perez [address] [place] [phone] Appointment Radiology Matthew Jerome 2 Y, M.B.B.SSuma, Lilian [address] [place] [phone] Appointment Gastroenterology and Adrianne, 2 Hepatology Yue Burciaga M.D. [address] [place] [phone] Office Visit Gastroenterology and Matthew Jerome 2 Hepatology Jennifer M.B.B.SLilian Moise [address] [place] [phone] Appointment Radiology Matthew Jerome 2 Y M.B.B.SLilian Moise [address] [place] [phone] Scheduled Procedures Name Priority Associated Diagnoses Date/Time ESOPHAGOGASTRODUODENOSCOPY Cirrhosis Alc oholic (HCC) 02/10/2022 8:45 AM CDT Hypertension Portal (HCC) documented as of this encounter Visit Diagnoses Not on filedocumented in this encounter Additional Health Concerns Assessment Noted Time PHQ-9 Depression Total Score: 10/06/2021 5:00 PM CD T documented as of this encounter Care Teams Wind Energy Project Manager Relationship Specialty Start Date End Date Ana Red P.A.-C. PCP - General Internal Medicine 12/01/[address] [place] [phone] [facility]- [place] lab 08/25/21 Ervin Schroeder MD Referring Provider Family Medicine 03/24/[address] [place] [phone] documented as of this encounter
--- OUTSIDE RECORDS SUMMARY | 2022-02-04 23:09 | XMS_ITS | Encounter Summary ---
:1990 Author Organization [facility] Address [address] [place] [address] Care Team Providers Name Role Phone Ana Red P.A.-C. Primary Care Provider [phone] Reason for Visit Reason Comments Appointment January follow up Encounter Details Date Type Department Care Team Description 01/14/2022 Clinical Ramirez Huerta, [facility] Communication Center for Adeline Jagdeep (January laci Wilson, Ph.D. up) Clinical Regeneration [address] [place] [address] in [facility] [phone] [place] [address] [place], [place] (Work) [phone] Social History Tobacco Use Types Packs/Day Years [...] do you attend mandaeism or Never 2021 jew services? Do you belong to any clubs or No 07/17/2021 organizations such as mandaeism groups, unions, fraDAXKO or athletic groups, or school groups? How [...] or the highest technical, or vocational [facility] degree you have received? 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 documented in this encounter Plan of Treatment Upcoming Encounters Date Type Specialty Care Team Description [facility] Radiology LuisMatthew abdul 2 Encounter Tyrell Rodriguez M.D. [address] [place] [phone] Hospital Gastroenterology and Mousa, Matthew 2 Encounter Hepatology Tyrell Rodriguez, Lilian [address] [place] [phone] Surgery Gastroenterology and Mousa, Matthew ESOPHAG OGASTRODUODENOSCOPY 2 Hepatology Tyrell Rodriguez M.D. [address] [place] [phone] Telemedicine Transplant 2 Lab Laboratory Medicine Karin, 2 Adeline Gannon M.D., Ph.D. [address] [place] [phone] Lab Laboratory Medicine Karin, 2 Adeline Gannon M.D., Ph.D. [address] [place] [phone] Office Visit Transplant Karin, 2 Adeline Gannon M.D., Ph.D. [address] [place] [phone] Office Visit [facility], 2 Medicine Vernell Perez [address] [place] [phone] Appointment Radiology Luischantell, Matthew 2 Tyrell Rodriguez, Lilian [address] [place] [phone] Appointment Gastroenterology and Adrianne, 2 Hepatology Yue Burciaga M.D. [address] [place] [phone] Office Visit Gastroenterology and Matthew Jerome 2 Hepatology YTyrell M.D. [address] [place] [phone] Appointment Radiology LuisMatthew abdul 2 Tyrell Rodriguez M.D. [address] [place] [phone] Scheduled Procedures Name Priority Associated Diagnoses Date/Time ESOPHAGOGASTRODUODENOSCOPY Cirrhosis Alc oholic (HCC) 02/10/2022 8:45 AM CDT Hypertension Portal (HCC) documented as of this encounter Visit Diagnoses Not on filedocumented in this encounter Additional Health Concerns Assessment Noted Time PHQ-9 Depression Total Score: 10 10/06/2021 5:00 PM CD T documented as of this encounter Care Teams Outpatient Receptionist Relationship Specialty Start Date End Date Ana Red P.A.-C. PCP - General Internal Medicine 12/01/[address] [place] [address] [phone] [facility]- [place] lab 08/25/21 Ervin Schroeder MD Referring Provider Family Medicine 03/24/[address] [place] [address] documented as of this encounter
--- OUTSIDE RECORDS SUMMARY | 2022-02-04 23:09 | XMS_ITS | Encounter Summary ---
:1990 Author Organization [facility] Address [address] [place] [address] Care Team Providers Name Role Phone Ana Red P.A.-C. Primary Care Provider [phone] Encounter Details Date Type Department Care Team Description 01/19/2022 Orders Only [facility] Vernon French, for Transplantation and Chano RSumaNSuma, Clinical Regeneration in [place], [place] [address] [place] [phone] Social History Tobacco Use Types Packs/Day [...] do you attend judaism or Never 2021 episcopalian services? 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 [address] [place] [phone] Hospital Gastroenterology and Matthew Jerome 2 Encounter Hepatology Tyrell Rodriguez M.D. [address] [place] [phone] Surgery Gastroenterology and Matthew Jerome ESOPHAG OGASTRODUODENOSCOPY 2 Hepatology Fredy RodriguezS., M.D. [address] [place] [phone] Telemedicine Transplant 2 Lab Laboratory Medicine Karin, 2 Adeline Gannon M.D., Ph.D. [address] [place] [phone] Lab Laboratory Medicine Karin, 2 Adeline Gannon M.D., Ph.D. [address] [place] [address] [phone] Office Visit Transplant Karin, 2 Adeline Gannon M.D., Ph.D. [address] [place] [phone] Office Visit [facility], 2 Medicine Vernell Perez [address] [place] [phone] Appointment Radiology Matthew Jerome 2, M.BSumaBLilian Bedolla [address] [place] [phone] Appointment Gastroenterology and Adrianne, 2 Hepatology Yue Burciaga M.D. [address] [place] [phone] Office Visit Gastroenterology and Matthew Jerome 2 Hepatology Joshua RodriguezBSumaBLilian Bedolla [address] [place] [phone] Appointment Radiology Matthew Jerome 2 YTyrell M.D. [address] [place] [phone] Scheduled Procedures Name Priority Associated Diagnoses Date/Time ESOPHAGOGASTRODUODENOSCOPY Cirrhosis Alc oholic (HCC) 02/10/2022 8:45 AM CDT Hypertension Portal (HCC) documented as of this encounter Visit Diagnoses Not on filedocumented in this encounter Additional Health Concerns Assessment Noted Time PHQ-9 Depression Total Score: 10/06/2021 5:00 PM CD T documented as of this encounter Care Teams Rouge Presser Relationship Specialty Start Date End Date Ana Red P.A.-C. PCP - General Internal Medicine 12/01/[address] [place] [phone] [facility]- [place] lab 08/25/21 Ervin Schroeder MD Referring Provider Family Medicine 03/24/[address] [place] [address] documented as of this encounter
--- OUTSIDE RECORDS SUMMARY | 2022-02-04 23:10 | XMS_ITS | Encounter Summary ---
:1990 Author Organization [facility] Address [address] [place] [address] Care Team Providers Name Role Phone Ana Red P.A.-C. Primary Care Provider [phone] Reason for Referral Outpatient (Routine) - Authorized Specialty Diagnoses / Procedures Referred By Contact Refer red To Contact Diagnoses Ascites Chronic Matthew Jerome M.B.B.SSuma, [facility] Procedures US Paracentesis with Imaging Guidance MJules [address] [place] [phone] Referral ID Status Reason Start Date Expiration Date Visits V isits Requested Authorized [id number] Authorized 11/19/2021 11/19/2022 1 1 Outpatient (Routine) - Pending Review Specialty Diagnoses / Procedures Referred By Contact Refer red To Contact Diagnoses Ascites Chronic Matthew Jerome M.B.BSumaSSuma, [facility] Procedures US Paracentesis with Imaging Guidance M.DSuma [address] [place] [phone] Referral ID Status Reason Start Date Expiration Date Visits V isits Requested Authorized [id number] Pending 01/06/2022 01/06/2023 1 1 Review Outpatient (Routine) - Authorized Specialty Diagnoses / Procedures Referred By Contact Refer red To Contact Diagnoses Ascites Chronic Matthew Jerome M.B.B.S., [facility] Procedures US Paracentesis with Imaging Guidance M.D. [address] [place] [phone] Referral ID Status Reason Start Date Expiration Date Visits V isits Requested Authorized [id number] Authorized 11/19/2021 11/19/2022 1 1 Outpatient (Routine) - Authorized Specialty Diagnoses / Procedures Referred By Contact Refer red To Contact Diagnoses Ascites Chronic Matthew Jerome M.B.B.S., [facility] Procedures US Paracentesis with Imaging Guidance M.DSuma [address] [place] [address] [phone] Referral ID Status Reason Start Date Expiration Date Visits V isits Requested Authorized [id number] Authorized 11/19/2021 11/19/2022 1 1 Encounter Details Date Type Department Care Team Description 01/06/2022 Clinical Communication Department of Felicita Spicer Gastroenterology [place], [place] [phone] [address] [place] [phone] Social History Tobacco Use Types Packs/Day [...] do you attend faith or Never 2021 yarsani services? 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 encounter Miscellaneous [...] Encounters Date Type Specialty Care Team Description [facility] Radiology [facility] 2 Encounter Tyrell Rodriguez, Lilian [address] [place] [phone] [facility] Gastroenterology and [facility] 2 Encounter Hepatology Tyrell Rodriguez, Lilian [address] [place] [address] [phone] Surgery Gastroenterology and [facility] ESOPHAG OGASTRODUODENOSCOPY 2 Hepatology Tyrell Rodriguez, MJules [address] [place] [phone] Telemedicine Transplant 2 Lab Laboratory Medicine Karin, Olinda Gannon M.D., Ph.D. [address] [place] [address] [phone] Lab Laboratory Medicine Karin, 2 Adeline Gannon M.D., Ph.D. [address] [place] [phone] Office Visit Transplant Karin, 2 Adeline Gannon M.D., Ph.D. [address] [place] [phone] Office Visit [facility] Internal [facility], 2 Medicine Vernell Perez [address] [place] [phone] Appointment Radiology Matthew Jerome 2 Y, M.B.B.S., MJules [address] [place] [address] [phone] Appointment Gastroenterology and Adrianne, 2 Hepatology Yue Burciaga M.D. [address] [place] [address] [phone] Office Visit Gastroenterology and Matthew Jerome 2 Hepatology Jennifer M.B.B.S., MJules [address] [place] [phone] Appointment Radiology Matthew Jerome 2 Y, M.B.B.S., MJules [address] [place] [phone] Scheduled Orders Name Type Priority Associated Order [...] documented as of this encounter Care Teams Optical Glass Wet Inspector Relationship Specialty Start Date End Date Ana Red P.A.-C. PCP - General Internal Medicine 12/01/[address] [place] [phone] [facility]- [place] lab 08/25/21 Ervin Schroeder MD Referring Provider Family Medicine 03/24/[address] [place] [address] documented as of this encounter
--- OUTSIDE RECORDS SUMMARY | 2022-02-04 23:10 | XMS_ITS | Encounter Summary ---
:1990 Author Organization [facility] Address [address] [place] [address] Care Team Providers Name Role Phone Ana Red P.A.-C. Primary Care Provider Encounter Details Date Type Department Care Team Description 01/07/2022 Patient Self-Triage [facility] Symptom Pipe Cleaning Machine Operator, Provider Social History Tobacco Use Types Packs/Day [...] do you attend episcopalian or Never 2021 sikhism services? 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 [address] [place] [phone] Surgery Gastroenterology and [facility] Matthew ESOPHAG OGASTRODUODENOSCOPY 2 Hepatology Tyrell Rodriguez M.D. [address] [place] [phone] Telemedicine Transplant 2 Lab Laboratory Medicine Olinda Frazier Adeline Gannon M.D., Ph.D. [address] [place] [phone] Lab Laboratory Medicine Karin, 2 Adeline Gannon M.D., Ph.D. [address] [place] [phone] Office Visit Transplant Karin, 2 Adeline Gannon M.D., Ph.D. [address] [place] [address] [phone] Office Visit [facility] Internal [facility], 2 Medicine Vernell Perez [address] [place] [address] [phone] Appointment Radiology Matthew Jerome 2 YJoshuaB.B.SSuma, Lilian [address] [place] [phone] Appointment Gastroenterology demian Silver 2 Hepatology Yue Burciaga M.D. [address] [place] [phone] Office Visit Gastroenterology and Matthew Jerome 2 Hepatology Joshua RodriguezBSumaB.SSuma, Lilian [address] [place] [address] [phone] Appointment Radiology Matthew Jerome 2 Y M.B.B.SSuma, Lilian [address] [place] [address] [phone] Scheduled Procedures Name Priority Associated Diagnoses Date/Time ESOPHAGOGASTRODUODENOSCOPY Cirrhosis Alc oholic (HCC) 02/10/2022 8:45 AM CDT Hypertension Portal (HCC) documented as of this encounter Visit Diagnoses Not on filedocumented in this encounter Additional Health Concerns Assessment Noted Time PHQ-9 Depression Total Score: 10/06/2021 5:00 PM CD T documented as of this encounter Care Teams Spa Coordinator Relationship Specialty Start Date End Date Ana Red P.A.-C. PCP - General Internal Medicine 12/01/[address] [place] [phone] [facility] [place] lab 08/25/21 Ervin Schroeder MD Referring Provider Family Medicine 03/24/[address] [place] [address] documented as of this encounter
--- OUTSIDE RECORDS SUMMARY | 2022-02-04 23:10 | XMS_ITS | Encounter Summary ---
:1990 Author Organization [facility] Address [address] [place] [address] Care Team Providers Name Role Phone Ana Red P.A.-C. Primary Care Provider [phone] Reason for Referral Transplant (Routine) - Authorized Specialty Diagnoses / Procedures Referred By Contact Refer red To Contact Transplant Surgery / Adeline Frazier Royer Transplant Lilian Gannon, Ph.D. [address] [place] [phone] Referral ID Status Reason Start Date Expiration Date Visits V isits Requested Authorized [id number] Authorized 01/13/2022 01/12/2025 1 1 Scheduling Instructions Lab work to be done on her next visit to [place] Reason for Visit Transplant (Routine) - Closed Specialty Diagnoses / Procedures Referred By Contact Refer red To Contact Transplant Surgery / Adeline Frazier Royer Transplant Lilian Gannon, Ph.D. [address] [place] [phone] Referral ID Status Reason Start Date Expiration Date Visits Requ ested Visits Authorized [id number] Closed 10/10/2021 10/10/2022 1 1 Encounter Details Date Type Department Care Team Description 01/13/2022 Telemedicine Adeline Antoine M.D., Ph.D. [address] [place] [address] Moderate Or Severe [facility] Cathleen Elena Loretta Use Disorder Transplantation and (Depende nce) Alcohol Clinical Regeneration in [facility] ission ([facility]) [place], [place] (Primary Dx) [address] [place] [phone] Social History Tobacco Use Types Packs/Day [...] do you attend moravian or Never 2021 episcopalian services? 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 Gender: female Address: [address] [place] [phone] Appointment conducted via real-time audio/video technology by GARY Coleman in [facility] to the patient in [place] [id number]. . CHIEF COMPLAINT / REASON FOR VISIT Transplant Addiction Psychiatry Individual follow up session Pre-transplant, Liver Supervising Senior Online Marketing Manager: Dr. Marva Frazier M.D. Ph.D Total Counseling Time: 15 Minutes HISTORY OF PRESENT ILLNESS I had the opportunity to review the patient's medical record as it relates to transplant addiction psychiatry. The patient is a 31 y.o. female from [place], [place]. Today, the patient is presenting alonefrom [...] by history; currently medicinal cannabis use #3 Inseamer Use Of Opiate Analgesic #4 Nicotine Dependence Cigarettes #5 Mood Disorder Unspecified #6 Anxiety Disorder Unspecified #7 Eating disorder (purging and restricting), by history #8 Chronic Pain Syndrome #9 Hepatic Encephalopathy moderate COUNSELOR IMPRESSION: The patient is a pleasant 31 year old single woman calling in from a hospital room in [facility]. She reports being hospitalized with encephalopathy confusion. She verbalized a great deal of commitment to enter treatment and to do whatever I have to to get a transplant. She reports having begun the intake process for [facility]'s virtual Addiction Treatment Program. She is aware [...] management per Radhames Neumann, Ph.D., L.P. in [facility] (Pain Rehabilitation), 10/06/2021: - virtual [...] the patient via the portal and via [employer]. Upon it'sreturn we can check her insurance coverage for [facility]. If her insurance will not cover our program there are numerous other options for her. Two of which contact information have been sent to her. ORDERS PLACED: Follow up: One month Labs: Urine Drug Screen with Confirmation, Ethyl Glucuronide with Confirmation, and Phosphatidylethanol documented in this encounter Plan of Treatment Upcoming Encounters Date Type Specialty Care Team Description [facility] Radiology [facility] Matthew 2 Encounter Tyrell Rodriguez M.D. [address] [place] [phone] [facility] Gastroenterology and [place] Matthew 2 Encounter Hepatology Tyrell Rodriguez M.D. [address] [place] [phone] Surgery Gastroenterology and Matthew Jerome ESOPHAG OGASTRODUODENOSCOPY 2 Hepatology Vik RodriguezB.SLilian Moise [address] [place] [phone] Telemedicine Transplant 2 Lab Laboratory Medicine Karin, 2 Adeline Gannon M.D., Ph.D. [address] [place] [phone] Lab Laboratory Medicine Karin, 2 Adeline Gannon M.D., Ph.D. [address] [place] [phone] Office Visit Transplant Karin, Olinda Gannon M.D., Ph.D. [address] [place] [phone] Office Visit Community Internal [facility], 2 Medicine Farida Perez-C. [address] [place] [phone] Appointment Radiology Matthew Jerome 2 Elizabeth Rodriguez.B.B.SLilian Moise [address] [place] [phone] Appointment Gastroenterology and Adrianne, 2 Hepatology Yue Burciaga M.D. [address] [place] [phone] Office Visit Gastroenterology and Matthew Jerome 2 Hepatology Joshua RodriguezB.B.SLilian Moise [address] [place] [phone] Appointment Radiology Matthew Jerome 2 Y, Tyrell, Lilian [address] [place] [phone] Scheduled Orders Name Type Priority Associated Diagnoses [...] documented as of this encounter Care Teams Morning Caregiver Relationship Specialty Start Date End Date Ana Red P.A.-C. PCP - General Internal Medicine 12/01/[address] [place] [address] [place] [address] [facility] 08/25/21 Ervin Schroeder MD Referring Provider Family Medicine 03/24/[address] [place] [address] documented as of this encounter
--- OUTSIDE RECORDS SUMMARY | 2022-02-04 23:10 | XMS_ITS | Encounter Summary ---
:1990 Author Organization [facility] Address [address] [place] [address] Care Team Providers Name Role Phone Ana Red P.A.-C. Primary Care Provider [phone] Encounter Details Date Type Department Care Team Description 01/13/2022 Clinical Communication Division of [facility] in Lilian Schaefer [place], [place] [address] [facility] [address] [place] [phone] Social History Tobacco Use Types Packs/Day Years [...] do you attend confucianist or Never 2021 anabaptist services? 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 [address] [place] [phone] Hospital Gastroenterology and Matthew Jerome 2 Encounter Hepatology Tyrell Rodriguez M.D. [address] [place] [phone] Surgery Gastroenterology and Matthew Jerome ESOPHAG OGASTRODUODENOSCOPY 2 Hepatology Tyrell Rodriguez, M.D. [address] [place] [phone] Telemedicine Transplant 2 Lab Laboratory Medicine Karin, 2 Adeline Gannon M.D., Ph.D. [address] [place] [phone] Lab Laboratory Medicine Karin, 2 Adeline Gannon M.D., Ph.D. [address] [place] [phone] Office Visit Transplant Karin, 2 Adeline Gannon M.D., Ph.D. [address] [place] [phone] Office Visit Community Internal [facility], 2 Medicine Vernell Perez [address] [place] [phone] Appointment Radiology Matthew Jerome 2, M.BSumaBLilian Bedolla [address] [place] [phone] Appointment Gastroenterology and Adrianne, 2 Hepatology Yue Burciaga M.D. [address] [place] [phone] Office Visit Gastroenterology and Matthew Jerome 2 Hepatology Joshua RodriguezBSumaBSumaSLilian Moise [address] [place] [phone] Appointment Radiology Matthew Jerome 2 Tyrell Rodriguez M.D. [address] [place] [phone] Scheduled Procedures Name Priority Associated Diagnoses Date/Time ESOPHAGOGASTRODUODENOSCOPY Cirrhosis Alc oholic (HCC) 02/10/2022 8:45 AM CDT Hypertension Portal (HCC) documented as of this encounter Results (ABNORMAL) CBC with Differential, Blood (01/20/2022 12:07 PM CDT) [facility] gist Method Time Signature Hemoglobin 7.4 [...] Organization Address City/State/ZIP Code Phon e Number [facility]- [address] [place] [address] [facility] [address] [place] [address] System in [place] [address] (ABNORMAL) Comprehensive Metabolic Panel [...] Organization Address City/State/ZIP Code Phon e Number [facility]- [address] [place] [address] [place] [address] System in [place] [address] [facility] documented in this encounter Visit Diagnoses Diagnosis Cirrhosis Alcoholic (HCC) Hypertension Portal (HCC) Hepatic Failure Unspecified Without Coma (HCC) - Primary Cirrhosis Alcoholic (HCC) Hypertension Portal (HCC) documented in this encounter Additional Health Concerns Assessment Noted Time PHQ-9 Depression Total Score: 10 10/06/2021 5:00 PM CD T documented as of this encounter Care Teams Costume Specialist Relationship Specialty Start Date End Date Ana Red P.A.-C. PCP - General Internal Medicine 12/01/[address] [place] [phone] [facility] [place] [facility] 08/25/21 Ervin Schroeder MD Referring Provider Family Medicine 03/24/[address] [place] [phone] documented as of this encounter
--- OUTSIDE RECORDS SUMMARY | 2022-02-04 23:10 | XMS_ITS | Encounter Summary ---
:1990 Author Organization [facility] Address [address] [place] [address] Care Team Providers Name Role Phone Ana Red P.A.-C. Primary Care Provider [phone] Encounter Details Date Type Department Care Team Description 01/13/2022 Clinical Communication Division of [facility] in Lilian Schaefer [place], [place] [address] [facility] [address] [place] [phone] Social History Tobacco Use Types Packs/Day Years [...] do you attend tenriism or Never 2021 zoroastrianism services? 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 [address] [place] [phone] Hospital Gastroenterology and [facility] 2 Encounter Hepatology Tyrell Rodriguez, Lilian [address] [place] [phone] Surgery Gastroenterology and [facility] ESOPHAG OGASTRODUODENOSCOPY 2 Hepatology Tyrell Rodriguez, Lilian [address] [place] [phone] Telemedicine Transplant 2 Lab Laboratory Medicine Karin, 2 Adeline Gannon M.D., Ph.D. [address] [place] [phone] Lab Laboratory Medicine Karin, 2 Adeline Gannon M.D., Ph.D. [address] [place] [phone] Office Visit Transplant Karin, 2 Adeline Gannon M.D., Ph.D. [address] [place] [phone] Office Visit [facility], 2 Medicine Vernell Perez [address] [place] [phone] Appointment [facility] YJoshuaBJhoan, Lilian [address] [place] [phone] Appointment Gastroenterology and [place], 2 Hepatology Yue Burciaga M.D. [address] [place] [phone] Office Visit Gastroenterology and Matthew Jerome 2 Hepatology Tyrell Rodriguez, Lilian [address] [place] [phone] Appointment Radiology LuisMatthew abdul 2 Tyrell Rodriguez M.D. [address] [place] [phone] Scheduled Procedures Name Priority Associated Diagnoses Date/Time ESOPHAGOGASTRODUODENOSCOPY Cirrhosis Alc oholic (HCC) 02/10/2022 8:45 AM CDT Hypertension Portal (HCC) documented as of this encounter Visit Diagnoses Not on filedocumented in this encounter Additional Health Concerns Assessment Noted Time PHQ-9 Depression Total Score: 10 10/06/2021 5:00 PM CD T documented as of this encounter Care Teams Broommaker Relationship Specialty Start Date End Date Ana Red P.A.-C. PCP - General Internal Medicine 12/01/[address] [place] [phone] [facility] [place] [facility] 08/25/21 Ervin Schroeder MD Referring Provider Family Medicine 03/24/[address] [place] [phone] documented as of this encounter
--- OUTSIDE RECORDS SUMMARY | 2022-02-04 23:10 | XMS_ITS | Encounter Summary ---
:1990 Author Organization [facility] Address [address] [place] [address] Care Team Providers Name Role Phone Ana RedASuma-CSuma Primary Care Provider [phone] Reason for Referral Outpatient (Routine) - Authorized Specialty Diagnoses / Procedures Referred By Contact Refer red To Contact [facility] Internal Ana Red [facility] P.A.-CSuma [address] [facility] [place] [address] Referral ID Status Reason Start Date Expiration Date Visits V isits Requested Authorized [id number] Authorized 01/07/2022 01/06/2025 1 1 Reason for Visit Reason Comments Follow-up Cirrhosis and Hepatic Enceph alopathy. Back Pain Back Pain for 3 1/2 weeks. Outpatient (Routine) - Closed Specialty Diagnoses / Procedures Referred By Contact Refer red To Contact [facility] Internal [facility] Adair Correa [address] [place] [address] Referral ID Status Reason Start Date Expiration Date Visits Requ ested Visits Authorized [id number] Closed 12/02/2021 12/02/2022 1 1 Encounter Details Date Type Department Care Team Description 01/07/2022 Office Visit Department of Internal [place], Hyper tension Portal (HCC) (Primary Dx); Medicine in [place] .A.-C. Cirrhosis Alcoholic (HCC); [place] [address] [facility]; [address] [place], [place] Pancreatitis Chronic (HCC); [place] [address] Pain Low Back Mechanical [phone] Social History [...] do you attend jain or Never 2021 episcopalian services? 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 She was a heavy drinking in her 20s. She follows with GI and hepatology in [place]. She gets frequent paracentesis for ascites. She [...] Pretransplant Recipient Evaluation Exam Deficiency Vitamin A Ion Exchange Operator Use Of Opiate Analgesic Nicotine Dependence [...] (HCC) Follows with GI and Hepatology in [place]. She has a paracentesis scheduled for two [...] pap smears. We cannot see records from [place]. Other orders - [facility] Internal Medicine office visit (clinic) - traZODone (DESYREL) 100 mg tablet; Take 1 tablet (100 mg total) by mouth at bedtime as needed for sleep., Starting 01/07/2022, Normal - [facility] Internal Medicine office visit (clinic); Future; Expected [...] Care Team Description [facility] Radiology [facility] 2 Encounter Tyrell Rodriguez M.D. [address] [place] [phone] [facility] Gastroenterology and [facility] 2 Encounter Hepatology Tyrell Rodriguez M.D. [address] [place] [phone] [facility] ES[facility]HAG O[facility]ODENOSCOPY 2 Hepatology Tyrell Rodriguez M.D. [address] [place] [phone] Telemedicine Transplant 2 Lab Laboratory Medicine Karin, 2 Adeline Gannon M.D., Ph.D. [address] [place] [phone] Lab Laboratory Medicine Karin, 2 Adeline Gannon M.D., Ph.D. [address] [place] [phone] Office Visit Transplant Karin, 2 Adeline Gannon M.D., Ph.D. [address] [place] [phone] Office Visit Community Internal [facility], 2 Medicine Farida Perez-CSuma [address] [place] [phone] Appointment Radiology Matthew Jerome 2 Tyrell Rodriguez M.D. [address] [place] [phone] Appointment Gastroenterology and [place], 2 Hepatology Yue Burciaga M.D. [address] [place] [phone] Office Visit Gastroenterology and Luischantell Matthew 2 Hepatology Vik RodriguezBLilian Bedolla [address] [place] [phone] Appointment Radiology Matthew Jerome 2 YTyrell M.D. [address] [place] [phone] Scheduled Procedures Name Priority Associated Diagnoses Date/Time ESOPHAGOGASTRODUODENOSCOPY Cirrhosis Alc oholic (HCC) 02/10/2022 8:45 AM CDT Hypertension Portal (HCC) Scheduled Referrals Name Type Priority Associated Diagnoses Order S [facility] Internal Outpatient Referral Routine Ex pected: Medicine [...] documented as of this encounter Care Teams Pleater Hand Relationship Specialty Start Date End Date Ana Red P.A.-C. PCP - General Internal Medicine 12/01/[address] [place] [phone] [facility] [place] [facility] 08/25/21 Ervin Schroeder MD Referring Provider Family Medicine 03/24/[address] [place] [address] documented as of this encounter
--- OUTSIDE RECORDS SUMMARY | 2022-02-04 23:10 | XMS_ITS | Encounter Summary ---
:1990 Author Organization [facility] Address [address] [place] [address] Care Team Providers Name Role Phone Ana Red P.A.-C. Primary Care Provider [phone] Encounter Details Date Type Department Care Team Description 01/08/2022 Clinical Communication [facility] Far[facility] Perez Medicine in [address] [phone] [place], [place] [phone] (Work) [phone] Social History Tobacco Use Types Packs/Day Years [...] do you attend religious or Never 2021 druze services? 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 C.M.A. - 01/08/2022 3:40 PM CDT SUBJECTIVE CHIEF COMPLAINT / REASON FOR CALL No chief complaint on file. Information Discussed Faxed out updated list. Patient last seen on 01/07/2022. PLAN Disposition/Recommendation: recommended continue engagement in self-management activities Information/Education: patient/caller able to teach back Caller agreeable to plan of care: yes The following references were used: none Telephone Encounter - Catia Weiss - 01/08/2022 2:52 PM CDT Reason for Communication: Misbah the funeral home location manager called and would like an updated med list of the pt's Current Phone Number: P;[phone] FAX:[phone] Attn: Misbah Can Nursing/Provider leave a detailed message?: na Did the patient refuse triage through Nurse line? (for symptom based concerns): na Action Needed: please fax most current med list to Misbah Name of Medication (if relevant): na Please send all scheduling replies to scheduling pool. documented in this encounter Plan of Treatment Upcoming Encounters Date Type Specialty Care Team Description [facility] Radiology [facility] 2 Encounter Tyrell Rodriguez, Lilian [address] [place] [phone] [facility] Gastroenterology and [facility] 2 Encounter Hepatology Tyrell Rodriguez, Lilian [address] [place] [phone] Surgery Gastroenterology and [facility] ESOPHAG OGASTRODUODENOSCOPY 2 Hepatology Tyrell Rodriguez, Lilian [address] [place] [phone] Telemedicine Transplant 2 Lab Laboratory Medicine Karin, Olinda Gannon M.D., Ph.D. [address] [place] [phone] Lab Laboratory Medicine Olinda Frazier M.D., Ph.D. [address] [place] [phone] Office Visit Transplant Karin, 2 Adeline Gannon M.D., Ph.D. [address] [place] [phone] Office Visit Community Internal Neda, 2 Medicine Vernell Perez [address] [place] [phone] Appointment Radiology Matthew Jerome 2 YElizabeth.B.B.SSuma, MJules [address] [place] [phone] Appointment Gastroenterology and Adrianne 2 Hepatology Yue Burciaga M.D. [address] [place] [phone] Office Visit Gastroenterology and Matthew Jerome 2 Hepatology Jennifer M.B.B.SSuma, MJules [address] [place] [phone] Appointment Radiology Matthew Jerome 2 Y M.B.B.SSuma, MJules [address] [place] [phone] Scheduled Procedures Name Priority Associated Diagnoses Date/Time ESOPHAGOGASTRODUODENOSCOPY Cirrhosis Alc oholic (HCC) 02/10/2022 8:45 AM CDT Hypertension Portal (HCC) documented as of this encounter Visit Diagnoses Not on filedocumented in this encounter Additional Health Concerns Assessment Noted Time PHQ-9 Depression Total Score: 10 10/06/2021 5:00 PM CD T documented as of this encounter Care Teams Business Improvement Manager Relationship Specialty Start Date End Date Ana Red P.A.-C. PCP - General Internal Medicine 12/01/[address] [place] [address] [place] [phone] [facility] 08/25/21 Ervin Schroeder MD Referring Provider Family Medicine 03/24/[address] [place] [address] [place] [address] documented as of this encounter
--- OUTSIDE RECORDS SUMMARY | 2022-02-04 23:10 | XMS_ITS | Encounter Summary ---
:1990 Author Organization [place] [facility] Address [address] [place] [address] Care Team Providers Name Role Phone Ana Red P.A.-C. Primary Care Provider [phone] Encounter Details Date Type Department Care Team Description 12/27/2021 Patient Self-Triage [facility] Symptom Meat Hanger, Provider Social History Tobacco Use Types Packs/Day [...] do you attend scientology or Never 2021 religion services? 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 [address] [place] [phone] Surgery Gastroenterology and [facility] Matthew ESOPHAG OGASTRODUODENOSCOPY 2 Hepatology Tyrell Rodriguez M.D. [address] [place] [address] [phone] Telemedicine Transplant 2 Lab Laboratory Medicine Olinda Frazier Adeline Gannon M.D., Ph.D. [address] [place] [phone] Lab Laboratory Medicine Karin, 2 Adeline Gannon M.D., Ph.D. [address] [place] [phone] Office Visit Transplant Karin, 2 Adeline Gannon M.D., Ph.D. [address] [place] [address] [phone] Office Visit [facility], 2 Medicine Vernell Perez [address] [place] [address] [phone] Appointment Radiology Matthew Jerome 2 YJoshuaB.B.SSuma, Lilian [address] [place] [phone] Appointment Gastroenterology demian Silver 2 Hepatology Yue Burciaga M.D. [address] [place] [phone] Office Visit Gastroenterology and Matthew Jerome 2 Hepatology Joshua RodriguezBSumaB.SSuma, Lilian [address] [place] [address] [phone] Appointment Radiology Matthew Jerome 2 Y M.B.B.SSuma, Lilian [address] [place] [address] [phone] Scheduled Procedures Name Priority Associated Diagnoses Date/Time ESOPHAGOGASTRODUODENOSCOPY Cirrhosis Alc oholic (HCC) 02/10/2022 8:45 AM CDT Hypertension Portal (HCC) documented as of this encounter Visit Diagnoses Not on filedocumented in this encounter Additional Health Concerns Assessment Noted Time PHQ-9 Depression Total Score: 10/06/2021 5:00 PM CD T documented as of this encounter Care Teams Brand Marketing Intern Relationship Specialty Start Date End Date Ana Red P.A.-C. PCP - General Internal Medicine 12/01/[address] [place] [address] [phone] [facility] [place] [facility] 08/25/21 Ervin Schroeder MD Referring Provider Family Medicine 03/24/[address] [place] [phone] documented as of this encounter
--- OUTSIDE RECORDS SUMMARY | 2022-02-04 23:10 | XMS_ITS | Encounter Summary ---
:1990 Author Organization [facility] Address [address] [place] [address] Care Team Providers Name Role Phone Ana Red P.A.-C. Primary Care Provider [phone] Reason for Referral Transplant (Routine) - Authorized Specialty Diagnoses / Procedures Referred By Contact Refer red To Contact Transplant Surgery / [facility] MonicaSZara, M.S.W. [address] [place] [address] Referral ID Status Reason Start Date Expiration Date Visits V isits Requested Authorized [id number] Authorized 01/13/2022 01/12/2025 1 1 Scheduling Instructions Please schedule a follow up visit with Jt vasquez [facility]. Patient prefers video visit. Thank you. Encounter Details Date Type Department Care Team Description 01/13/2022 Orders Only Department of Social Work Rajiv Tan, in [facility] Vinay.S.W., M.S.W. 200 [facility] 200 [place] [phone] [place] [address] [phone] (Wo rk) Social History Tobacco Use Types [...] do you attend scientology or Never 2021 tenriism services? 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 documented as of this encounter Plan of Treatment Upcoming Encounters Date Type Specialty Care Team Description Hospital Radiology Matthew Jerome 2 Encounter Tyrell Rodriguez, Lilian [address] [place] [phone] Hospital Gastroenterology and Queenie Matthew 2 Encounter Hepatology Tyrell Rodriguez, Lilian [address] [place] [phone] Surgery Gastroenterology and Matthew Jerome ESOPHAG OGASTRODUODENOSCOPY 2 Hepatology Tyrell Rodriguez, Lilian [address] [place] [phone] Telemedicine Transplant 2 Lab Laboratory Medicine Karin, 2 Adeline Gannon M.D., Ph.D. [address] [place] [phone] Lab Laboratory Medicine Karin, 2 Adeline Gannon M.D., Ph.D. [address] [place] [phone] Office Visit Transplant Karin 2 Adeline Gannon M.D., Ph.D. [address] [place] [phone] Office Visit [facility], 2 Solitario Perez P.A.-C. [address] [place] [address] [phone] Appointment Radiology Matthew Jerome 2 Y, JoshuaB.B.SLilian Moise [address] [place] [phone] Appointment Gastroenterology and [place], 2 Hepatology Yue Burciaga M.D. [address] [place] [phone] Office Visit Gastroenterology and Matthew Jerome 2 Hepatology Vik RodriguezBLilian Bedolla [address] [place] [phone] Appointment Radiology Matthew Jerome 2 YVikBLilian Bedolla [address] [place] [phone] Scheduled Procedures Name Priority Associated [...] documented as of this encounter Care Teams Printer'S Devil Relationship Specialty Start Date End Date Ana Red P.A.-C. PCP - General Internal Medicine 12/01/[address] [place] [address] [place] [phone] [facility] [place] lab 08/25/21 Ervin Schroeder MD Referring Provider Family Medicine 03/24/[address] [place] [address] [place] [address] documented as of this encounter
--- OUTSIDE RECORDS SUMMARY | 2022-02-04 23:10 | XMS_ITS | Encounter Summary ---
:1990 Author Organization [facility] Address [address] [place] [address] Care Team Providers Name Role Phone Ana Red P.A.-C. Primary Care Provider [phone] Encounter Details Date Type Department Care Team Description 12/25/2021 Clinical Communication [facility] Farida Perez Medicine in [address] [phone] [place], [place] [phone] (Work) [phone] Social History Tobacco Use Types Packs/Day Years [...] do you attend religion or Never 2021 adventist services? 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 Telephone Encounter - Christina Mccall L.P.NSuma - 12/25/2021 2:13 PM CDT Left message [...] Jerome 2 Encounter Tyrell Rodriguez M.D. [address] [place] [phone] Hospital Gastroenterology and [facility] 2 Encounter Hepatology Tyrell Rodriguez, Lliian [address] [place] [phone] Surgery Gastroenterology and [facility], Matthew ESOPHAG OGASTRODUODENOSCOPY 2 Hepatology Tyrell Rodriguez, Lilian [address] [place] [phone] Telemedicine Transplant 2 Lab Laboratory Medicine Karin, 2 Adeline Gannon M.D., Ph.D. [address] [place] [phone] Lab Laboratory Medicine Karin, 2 Adeline Gannon M.D., Ph.D. [address] [place] [phone] Office Visit Transplant Karin, 2 Adeline Gannon M.D., Ph.D. [address] [place] [phone] Office Visit [facility], 2 Medicine Vernell Perez [address] [place] [phone] [facility] YTyrell, Lilian [address] [place] [phone] Appointment Gastroenterology and Adrianne, 2 Hepatology Yue Burciaga M.D. [address] [place] [phone] Office Visit Gastroenterology and Matthew Jerome 2 Hepatology Tyrell Rodriguez M.D. [address] [place] [phone] Appointment Radiology LuisMatthew abdul 2 YTyrell M.D. [address] [place] [phone] Scheduled Procedures Name Priority Associated Diagnoses Date/Time ESOPHAGOGASTRODUODENOSCOPY Cirrhosis Alc oholic (HCC) 02/10/2022 8:45 AM CDT Hypertension Portal (HCC) documented as of this encounter Visit Diagnoses Not on filedocumented in this encounter Additional Health Concerns Assessment Noted Time PHQ-9 Depression Total Score: 10 10/06/2021 5:00 PM CD T documented as of this encounter Care Teams Branch Manager Trainee Relationship Specialty Start Date End Date Ana Red P.A.-C. PCP - General Internal Medicine 12/01/[address] [place] [phone] [facility] [place] [facility] 08/25/21 Ervin Schroeder MD Referring Provider Family Medicine 03/24/[address] [place] [phone] documented as of this encounter
--- OUTSIDE RECORDS SUMMARY | 2022-02-04 23:10 | XMS_ITS | Encounter Summary ---
:1990 Author Organization [facility] Address [address] [place] [address] Care Team Providers Name Role Phone Ana Red P.A.-C. Primary Care Provider Reason for Referral Physical Therapy (Routine) - Authorized Specialty Diagnoses / Procedures Referred By Contact Refer red To Contact Diagnoses Pain Low Back Unspecified Colleen Crowell M.D., M.P.H. [address] [place] [address] [phone] Referral ID Status Reason Start Expiration Visits Visits Date Date Requested Authorized [id number] Authorized Patient 01/14/2022 01/14/2023 1 1 Preference Medication Prior Authorization - Closed Specialty Diagnoses / Procedures Referred By Contact Refer red To Contact Colleen Crowell M.D ., M.P.H. [address] [place] [address] [phone] Referral ID Status Reason Start Date Expiration Date Visits Requ ested Visits Authorized [id number] Closed 1 1 Outpatient (Routine) - Authorized Specialty Diagnoses / Procedures Referred By Contact Refer red To Contact Diagnoses Pain Low Back Unspecified Colleen Crowell M.D., M.P.H. [address] [place] [phone] Referral ID Status Reason Start Date Expiration Date Visits V isits Requested Authorized [id number] Authorized 01/14/2022 01/14/2023 1 1 Reason for Visit Reason Comments Abdominal Pain Auth/Cert Specialty Diagnoses / Procedures Referred By Contact Refer red To Contact Diagnoses Hepatic Encephalopathy Without Coma (HCC) Procedures ETU Referral ID Status Reason Start Date Expiration Date Visits Requ ested Visits Authorized [id number] 1 1 Encounter Details Date Type Department Care Team Description 01/09/2022 - [facility] Ludwin Garcia Jr., M.D. [address] [place] [address] [phone] Hepatic Encephalopathy Without Coma (HCC ) (Primary Dx); [facility] [address] [place] [address] [phone] Deficiency Vitamin A; [facility], Sree Bach M.D. [address] [place] [phone] Cirrhosis Alcoholic (HCC); [facility], Pain Low B ack Unspecified; Fifth Floor Decline Functional Status [R 53.81 (ICD-10-CM)] [address] [place] [address] [phone] Social History Tobacco Use Types Packs/Day Years [...] do you attend [employer] or Never 2021 pentecostal services? 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 Primary Team: [facility] Primary Care Providers: Ana Red P.A.-C. (General) [address] [place] [phone] Primary Care Provider Primary Care Provider Other [...] management per Radhames Neumann, Ph.D., L.P. in [place] [facility] (Pain Rehabilitation), 10/06/2021: - virtual [...] Medicine 01/27/2022 8:00 AM TXP PRE LIVER 01 ROCH 10 Transplant 01/28/2022 2:45 PM Matthew Jerome M.B.B.S., Callie. Gastroenterology and Hepatology For appointment details refer [...] AM CDT You were discharged from the [facility]. Please identify this service [...] bed and don with modified independence using devulcanizer tender. Discussed use of devulcanizer tender for donning/doffing pants and socks. Offered to [...] 07/03 Months Reversed: 07/03 30 seconds: 06/05 Ijac-Tiki-Igrl: 0 Go/No-Go: 07/03 Address Recall: 3/3 Total Score: 25/30 (Administered 01/14/2022) RECOMMENDATIONS: Discharge Therapy Needs - OT: Ongoing skilled occupational therapy Level of Care Needed - OT: Assistance with toilet/shower transfers, Assistance with dressing, Assistance with showering/bathing, Assistance with meal preparation, Assistance with financial aid counselor, Assistance with transportation, Assistance with housekeeping, Assistance with shopping Discharge information provided on 01/14/2022 Contact information: [facility], [address], AttachmentsThe following attachments cannot be sent through Care Everywhere. Acetaminophen (By mouth) ([place])Ciprofloxacin (By mouth) ([place])Lidocaine Patch (On the skin) ([place])Prochlorperazine (By mouth) ([place]) Cholecalciferol (By mouth) ([place])documented in this encounter Medications at Time of [...] Jurado M.D. - 01/12/2022 3:17 PM CDT [facility] PROGRESS NOTE SUBJECTIVE Ms. Carias [...] / PLAN Ms. Carias is hospitalized on [facility] for evaluation and management of [...] will discuss SBP ppx with her outpatient program administrator # acute blood loss anemia, improved - [...] Disposition: home, planning for discharge on 01/13 T Sree Bach M.D. - 01/12/2022 2:40 PM CDT Inpatient [...] evaluation. She was previously admitted to the [facility] GI service during the month of October [...] any GI bleeding. Patient presented to the [facility] ED with worsening abdominal distension over the [...] started to seem confused, wanting to go [place] grocery store, suddenly awakening every hour saying [...] 31 y.o. female who is hospitalized on [facility] for evaluation and management of [...] paracentesis for infectious workup for SBP (although jenn lagos has been on SBP prophylaxis since previous [...] Code status: Full Code Surrogate Decision Maker: AriadnaLobito Disposition: Home Kit Bellamy, MS4 [facility] Cornelia Jurado M.D. - 01/09/2022 12:08 PM CDT [facility] Admission Note CHIEF COMPLAINT Abdominal [...] / PLAN Ms. Carias is hospitalized on [facility] for evaluation and management of [...] AMS, concern for safe swallow. May need NEWS CLIPPING CUTTER eval - monitor renal function and UOP [...] Treatment General Acute Onset Date: 01/09/22 Payor: [facility] [place] / Plan: [facility] [place] REST[place]AN / Product [...] Pretransplant Recipient Evaluation Exam Deficiency Vitamin A Shelter Use Of Opiate Analgesic Nicotine Dependence Cigarettes [...] Boyfriend helps her to and from the bathroom when needed, independent with dressing, but has to do so sitting or lying, toileting and bathing independent but has assist gettting to toilet or into tub shower. This started about 5 weeks ago when she was in the shower and felt her back spasm. IADL/Homemaking Assistance: Required assistance IADL/Homemaking Assistance Comments: Boyfriend assists with meal preparation and housekeeping. Able to prepare simple meals if needed. Able to do light cleaning tasks such as dishes but unable to do heavier tasks such as sweeping, mopping, etc. due to back pain. [facility] assists with setting up weekly pillbox. 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 Discussed use of devulcanizer tender for donning/doffing pants and socks. Offered to [...] 07/03 Months Reversed: 07/03 30 seconds: 06/05 Waav-Ndcq-Lwpf: 0 Go/No-Go: 07/03 Address Recall: 07/03 Total Score: 25/30 [facility] Inpatient Short Form: Putting on and taking [...] Standardized Score: 44.27 Interpretation: Clinicians answer the [facility] Inpatient Short Form based on observed patient [...] Assistance with meal preparation, Assistance with financial aid counselor, Assistance with transportation, Assistance with housekeeping, Assistance [...] min Yue Christianson M.S., O.T. Cooper Menendez PMerlin., D.P.T. - 01/14/2022 9:06 AM CDT Physical Therapy Inpatient Evaluation/Treatment SUBJECTIVE Patient's Name: Catia Carias Referring/Attending Provider: Sree Bach M.D. Medical Diagnosis: Hepatic Encephalopathy Without Coma (HCC) [K72.90] Reason for Referral: PT Evaluate and Treat PT evaluate and treat Onset Date: 01/09/22 Payor: [facility] [place] / Plan[place] [facility] [place] / Product [...] Pretransplant Recipient Evaluation Exam Deficiency Vitamin A Shelter Use Of Opiate Analgesic Nicotine Dependence Cigarettes [...] pain started Prior Mobility/Functional Transfers Level of Iron: Needs assistance Previous Transfer/Mobility Assistance Comments: Relied [...] needs met and questions answered. Outcome Measures [facility] Inpatient Short Form: -[facility] Basic Mobility (V.2) How much [...] 3-5 steps with a railing?: A Little -[facility] Basic Mobility (V.2) Raw Score: 22 -[facility] Basic Mobility (V.2) Standardized Score: 47.4 Interpretation: Clinicians answer the [facility] Inpatient Short Form based on observed patient [...] 50 min Andreas Menendez P.T., Slick.P.T. Dee DeeAlicia murrietaah Danny Burciaga, M.S.W. - 01/12/2022 11:01 AM CDTAssociated Order(s): IP CONSULT TO CARE MANAGEMENT SUBJECTIVE Social Work met with patient in their hospital room to offer support, update psychosocial information and assist with discharge planning. Social work introduced self and reviewed role of inpatient social work. Patient expressed understanding and was agreeable to social work visit. Reviewed Psychosocial Assessment completed on 09/30/2021 by PRISCA Shields. Patient indicates that this information remains accurate [...] work to reach out to their transplant social worker palliative care, Joel Tan, for care coordination, as needed. Patient shares that she has a large and strong support systemthat is able to provide informal support as needed. Patient shares that she has a nurse through [facility] who comes out one time a week to set up her medication in a weekly pill box. Patient provided verbal consent for social work to reconnect [facility] services with [facility]. Patient shares no concerns [...] expectations and reviewing role of an inpatient social worker palliative care, engaging in rapport building, empathetic listening, active [...] Patient plans to return home with prior [facility] and family supports. Family to provide transportation at dismissal. Social work will continue to follow and provide psychosocial support and assistance with dismissal planning, as needed. Patient to discharge with home health care. Home Medical Care - Admitted Since 01/09/2022 Service Provider Selected Services Address Phone Fax Patient Preferred [facility] [address], [place] [phone] -- Contact: intake/admissions NURSING: - Complete documentation in the Discharge Navigator including Nursing Report Info and Facility/NextLevel of Care Info - Call report and arrange for the patient???s first visit. - Send required packet of dismissal information with patient, including After Visit Summary and advance directive. PRIMARY SERVICE: - Please provide a non-[place] home health order for resumption of previous [...] was given AVS and will be leaving [facility] with significant other. She had no further [...] improved Outcome: Adequate for Discharge Kindra Knight R.N. - 01/14/2022 5:47 AM CDT Problem: PAIN [...] Source Urine, Urine, Straight Catheter Color, U Weakley(!) Clarity Clear 1029 Dipstick, Urine(!): Hemoglobin, QL, [...] Type Specialty Care Team Description Hospital Radiology [facility] 2 Encounter Tyrell Rodriguez M.D. [address] [place] [phone] [facility] Gastroenterology and [facility] 2 Encounter Hepatology Tyrell Rodriguez M.D. [address] [place] [phone] Surgery Gastroenterology and [facility] ESOPHAG OGASTRODUODENOSCOPY 2 Hepatology Tyrell Rodriguez M.D. [address] [place] [phone] Telemedicine Transplant 2 Lab Laboratory Medicine [place], 2 Adeline Gannon M.D., Ph.D. [address] [place] [phone] Lab Laboratory Medicine Olinda Frazier M.D., Ph.D. [address] [place] [phone] Office Visit Transplant [facility], Olinda Gannon M.D., Ph.D. [address] [place] [phone] Office Visit [facility] Internal [facility], 2 Medicine Vernell Perez [address] [place] [phone] Appointment Radiology Matthew Jerome 2 Y M.B.B.SLilian Moise [address] [place] [phone] Appointment Gastroenterology and [place], 2 Hepatology Yue Burciaga M.D. [address] [place] [phone] Office Visit Gastroenterology and Matthew Jerome 2 Hepatology Jennifer M.B.B.SLilian Moise [address] [place] [phone] Appointment Radiology Matthew Jerome 2 Y M.B.B.SLilian Moise [address] [place] [phone] Pending Results Name Type Priority Associated Diagnoses Date/Ti [facility] Red Blood Blood Bank Routine 01/09/2022 9:56 [...] Type Priority Associated Diagnoses Order S chedule Non-[facility] Outpatient Referral Routine Pain Low Back [...] Signature Ventricular Rate 81 BPM MUSE ECG/Min PA Interval 146 ms MUSE QRSD Interval 90 ms MUSE QT Interval 408 ms MUSE QTC Interval 473 ms MUSE P [place] 6 degrees MUSE R [place] 55 degrees MUSE T Wave [place] 26 degrees MUSE Specimen Anatomical Collection Method [...] M.D., M.P.H. ECG ORDERABLES Performing Organization Address City/[facility]/ZIP Code Phon e Number MUSE MUSE [...] Laterality Blood (Blood, 01/14/2022 8:11 AM 01/15/20 8:47 Venous) CDT AM CDT Colleen Crowell M.D., M.P.H. LAB BLOOD ADD-ON Performing Organization Address City/[facility]/ZIP Code Phon e Number [facility] - [address] [place], [place] [address] [facility] [place] [address] [facility] [address] (ABNORMAL) Comprehensive Metabolic Panel (01/13/2022 8:42 PM CDT) Analysis Performed At Path logist Time Signature Potassium, S 3.6 3.6 [...] Organization Address City/State/ZIP Code Phon e Number [facility] - [address] (ABNORMAL) CBC without Differential (01/13/2022 8:42 PM CDT) [facility] gist Method Time Signature Hemoglobin 7.1 (L) [...] Laterality Blood (Blood, 01/13/2022 8:42 PM 01/14/20 9:17 Venous) CDT PM CDT Anuel Saucedo M.D. LAB BLOOD ADD-ON Performing Organization Address City/State/ZIP Code Phon e Number [facility] - [address] [place] [address] [place] Paracentesis with Imaging Guidance (01/13/2022 [...] Differential, Body Fluid (01/13/2022 2:42 PM CDT) [facility] Method Time Signature Fluid Type Peritoneal- 01/13/2022 DHPM Paracentesi 5:17 PM CDT s Gross Serous 01/13/2022 DH[facility] Appearance 5:17 PM CDT Total Nucleated 124 /mcL 01/13/2022 DHPM Cells 5:17 PM CDT Comment: ----REFERENCE VALUE---- Synovial: <150 /mcL Peritoneal: <500 /mcL Pleural: <500 /mcL Pericardial: <500 /mcL ----ADDITIONAL INFORMATION---- This test has been modified from the man berhane's instructions. Its performance characteri stics were determined by [facility] in a manner co nsistent [...] Organization Address City/State/ZIP Code Phon e Number [facility] - 200 [place], [place] [address] [place] [address] [facility] 200 [facility] (ABNORMAL) CBC without Differential (01/13/2022 7:09 AM [...] Organization Address City/State/ZIP Code Phon e Number [facility] - 200 [place], [place] [address] [facility] [place] [address] [facility] 200 [facility] (ABNORMAL) Comprehensive Metabolic Panel (01/13/2022 7:09 AM [...] Laterality Blood (Blood, 01/13/2022 7:09 AM 01/14/20 8:17 Venous) CDT AM CDT Cornelia Jurado M.D. LAB BLOOD ADD-ON Performing Organization Address City/[facility]/ZIP Code Phon e Number [facility] - [address] [place] [address] (ABNORMAL) Hemoglobin (01/12/2022 4:17 AM CDT) P athologist Signature Hemoglobin 7.7 (L) 11.6 - 15.0 01/12/2022 DTL g/dL 4:50 AM CDT Specimen Anatomical Collection Method Collection Time Receive d Time (Source) Location / / Volume Laterality Blood (Blood, 01/12/2022 4:17 AM 01/13/20 4:42 Venous) CDT AM CDT Cornelia Jurado M.D. LAB BLOOD ADD-ON Performing Organization Address [facility] Phon e Number [facility] - [address] [place] [address] (ABNORMAL) Basic Metabolic Panel (01/12/2022 4:17 AM [...] Organization Address City/[facility] Phon e Number [place] [id number] (ABNORMAL) Hemoglobin (01/11/2022 4:35 PM CDT) P athologist Signature Hemoglobin 7.9 (L) 11.6 - 15.0 01/11/2022 DTL g/dL 5:00 PM CDT Specimen Anatomical Collection Method Collection Time Receive d Time (Source) Location / / Volume Laterality Blood (Blood, 01/11/2022 4:35 PM 01/12/20 4:56 Venous) CDT PM CDT Cornelia Jurado M.D. LAB BLOOD ADD-ON Performing Organization Address City/[facility] Phon e Number [address] [place] [address] (ABNORMAL) Comprehensive Metabolic Panel (01/11/2022 8:36 AM [...] Laterality Blood (Blood, 01/11/2022 8:36 AM 01/12/20 9:45 Venous) CDT AM CDT Cornelia Jurado M.D. LAB BLOOD ADD-ON Performing Organization Address City/State/ZIP Code Phon e Number [facility] - [address] [place], [place] [address] [facility] [place] [address] [facility] [address] (ABNORMAL) Hemoglobin (01/11/2022 6:44 AM CDT) athologist Signature Hemoglobin 7.4 (L) 11.6 - 15.0 01/11/2022 DTL g/dL 7:29 AM CDT Specimen Anatomical Collection Method Collection Time Receive d Time (Source) Location / / Volume Laterality Blood (Blood, 01/11/2022 6:44 AM 01/12/20 22 7:20 Venous) CDT AM CDT Colleen Crowell M.D., M.P.H. LAB BLOOD ADD-ON Performing Organization Address City/State/[facility] Phon e Number [facility] - [address] [place], [place] [address] [facility] [place] [address] [facility] 200 [facility] (ABNORMAL) Hemoglobin (01/10/2022 10:11 PM CDT) athologist Signature Hemoglobin 7.9 (L) 11.6 - 15.0 01/10/2022 DTL g/dL 10:30 PM CDT Specimen Anatomical Collection Method Collection Time Receive d Time (Source) Location / / Volume Laterality Blood (Blood, 01/10/2022 10:11 01/10/2022 Venous) PM CDT 10:24 PM CDT Colleen Crowell M.D., M.P.H. LAB BLOOD ADD-ON Performing Organization Address City/[facility] Phon e Number [facility] - [address] [place], [place] [address] [facility] [place] [address] [facility] 200 [facility] (ABNORMAL) Comprehensive Metabolic Panel (01/10/2022 10:11 PM [...] Organization Address City/State/ZIP Code Phon e Number [facility] - [address] [place], [place] [address] [facility] [place] [address] [facility] [address] (ABNORMAL) CBC without Differential (01/10/2022 10:11 PM [...] Organization Address City/State/ZIP Code Phon e Number [facility] - [address] [place] [address] [facility] [place] [address] [facility] 200 [facility] (ABNORMAL) Hemoglobin (01/10/2022 8:27 PM CDT) P athologist Signature Hemoglobin 7.7 (L) 11.6 - 15.0 01/10/2022 DTL g/dL 8:47 PM CDT Specimen Anatomical Collection Method Collection Time Receive d Time (Source) Location / / Volume Laterality Blood (Blood, 01/10/2022 8:27 PM 01/11/20 8:41 Venous) CDT PM CDT Colleen Crowell M.D., M.P.H. LAB BLOOD ADD-ON Performing Organization Address City/State/[facility] Phon e Number [facility] - [id number] [place] [address] Transfuse Red Blood Cells : (01/10/2022 8:08 [...] M.D. LAB URINE ORDERABLES Performing Organization Address City/State/[facility] Phon e Number [facility] - [address] [place], [place] [address] [place], [place] [id number] [place] [address] First [facility] (ABNORMAL) Hemoglobin (01/10/2022 12:22 PM CDT) P athologist Signature Hemoglobin 6.4 (L) 11.6 - 15.0 01/10/2022 [facility] g/dL 1:29 PM CDT Specimen Anatomical Collection Method Collection Time Receive d Time (Source) Location / / Volume Laterality Blood (Blood, 01/10/2022 12:22 01/10/2022 Venous) PM CDT 12:46 PM CDT Cornelia Jurado M.D. LAB BLOOD ADD-ON Performing Organization Address City/State/ZIP Code Phon e Number [facility] - [address] [place], [place] [address] [place] [address] [facility] [address] [place] Liver with [...] paracentesis. Cornelia Jurado M.D. IMG US PROCEDURES US Paracentesis with Imaging Guidance [...] original. EXAM: US PARACENTESIS WITH IMAGING KYLER MARINAE PRE-PROCEDURE: Patient seen and evaluate d. Allergies, [...] atio <1.0. All other fluids refer to www.UGOBEs.Glider for further inter pretive information. This test has been modified from the man ufacturer's instructions. Its performance characteri stics were determined by [facility] in a manner consistent wi [...] Organization Address City/State/ZIP Code Phon e Number [facility] - [address] [place], [place] [address] [facility] [place] [address] [facility] [address] Albumin, Body Fluid [...] process. ?? All other fluids refer to www.Nazar.Glider for further interpretive information. This t est has been modified from the certified ophthalmic assistant's instruc tions. Its performance characteristics were determi foreign by [facility] in a manner consistent with [...] Organization Address City/State/ZIP Code Phon e Number [facility] - 200 [place], [place] [address] [facility] [place] [address] [facility] [address] [facility] Lactate Dehydrogenase (LD), Body Fluid (01/10/2022 9:51 AM CDT) [facility] gist Method Time Signature Lactate 41 See Comment [...] clinical findings. All other fluids refer to www.Nazar.Glider for further interpretive information. This test has been modified from the man ufacturer's instructions. Its performance characteristics were det ermined by [facility] in a manner consistent with [...] Organization Address City/[facility] Phon e Number [facility] - [address] [place], [place] [address] [facility] [place] [address] [facility] [address] Protein, Total, Body [...] ical findings. All other fluids refer to [email or web address] for further inter pretive information. This test has been modified from the certified ophthalmic assistant's instructions. Its perform ance characteristics were determined by [facility] in a manner consistent with [...] Organization Address City/[facility] Code Phon e Number [facility] - [address] [place], [place] [address] [facility] [place] [address] [facility] [address] [facility] Glucose, Body Fluid (01/10/2022 9:51 AM CDT) [...] of infection. All other fluids refer to [email or web address].com for further inter pretive information. This test has been modified from the man flakitar's instructions. Its performance characteri stics were determined by [facility] in a manner co nsistent [...] Organization Address City/State/ZIP Code Phon e Number [facility] - [address] [place], [place] [address] [facility] [place] [address] [facility] [address] [facility] Bacterial Culture, Aerobic + Susc (01/10/2022 9:51 AM CDT) Patholo gist Method Time Signature Bacterial No growth 01/15/2022 DTL Culture, after 5 8:05 AM CDT Aerobic + Susc days of incubation. Specimen Anatomical Collection Method Collection Time Receive d Time (Source) Location / / Volume Laterality Fluid 01/10/2022 9:51 AM (Peritoneal CDT 11:24 AM CDT Fluid) Comment: Specimen Source Site: Fluid Narrative [facility] - [facility] - 01/15/2022 8:05 AM CDT Bacterial Culture: Received Bactec aerob ic and Bactec anaerobic bottles Cornelia Jurado M.D. LAB MICROBIOLOGY - GENERAL O RDERABLES Performing Organization Address City/State/ZIP Code Phon e Number [facility] - [address] [place] [address] [facility] [place] [address] [facility] 200 [facility] Cell Count and Differential, Body Fluid (01/10/2022 9:51 AM CDT) [facility] Method Time Signature Fluid Type Peritoneal- [...] Its performance characteri stics were determined by [facility] in a manner co nsistent [...] Are: Mesothelial cells 01/11/2022 5:44 AM CDT [facility] Comment SeeComment 01/11/2022 5:44 AM CDT [facility] Comment: No blasts or malignant cells se en. Degenerative neutrophils present. Reviewed by: Ruth 01/11/2022 5:44 AM CDT [facility] Specimen Anatomical Collection Method Collection Time Receive d Time (Source) Location / / Volume Laterality Fluid 01/10/2022 9:51 AM 2 (Peritoneal CDT 11:28 AM CDT Fluid) Cornelia Jurado M.D. LAB BODY FLUIDS AND STOOLS O RDERABLES Performing Organization Address City/[facility] Code Phon e Number [facility] - [address] [place] [address] (ABNORMAL) Hemoglobin (01/10/2022 4:04 AM CDT) P athologist Signature Hemoglobin 7.9 (L) 11.6 - 15.0 01/10/2022 STMA g/dL 4:31 AM CDT Specimen Anatomical Collection Method Collection Time Receive d Time (Source) Location / / Volume Laterality Blood (Blood, 01/10/2022 4:04 AM 01/11/20 4:29 Venous) CDT AM CDT Cornelia Jurado M.D. LAB BLOOD ADD-ON Performing Organization Address City/[facility] Code Phon e Number [facility] - [address] [place] [address] [facility] STMA [place] [address] (ABNORMAL) Comprehensive Metabolic Panel (01/10/2022 4:04 [...] Organization Address City/State/ZIP Code Phon e Number [facility] - [address] [place], [place] [address] [facility] [place] [address] [facility] [address] (ABNORMAL) CBC with Differential, Blood (01/10/2022 4:04 AM CDT) [facility] gist Method Time Signature Hemoglobin 7.8 (L) [...] Organization Address City/State/ZIP Code Phon e Number [facility] - [address] [place] [address] Laboratories-[address] (ABNORMAL) Cystatin C with Estimated GFR [...] - 1.03 mg/L 01/10/2022 5:18 AM CDT DT Specimen Anatomical Collection Method Collection Time Receive d Time (Source) Location / / Volume Laterality Blood (Blood, 01/10/2022 4:04 AM 01/11/20 4:54 Venous) CDT AM CDT Cornelia Jurado M.D. LAB BLOOD ADD-ON Performing Organization Address City/State/ZIP Code Phon e Number [address] [address] Formerly [facility]-[address] (ABNORMAL) Hepatic Function Panel (01/10/2022 4:04 [...] Laterality Blood (Blood, 01/10/2022 4:04 AM 01/11/20 4:55 Venous) CDT AM CDT Cornelia Jurado M.D. LAB BLOOD ADD-ON Performing Organization Address City/State/ZIP Code Phon e Number [facility] - [address] [place], [place] [address] [place], [place] [id number] [place] [address] (ABNORMAL) Haptoglobin (01/10/2022 4:04 AM CDT) [facility] Haptoglobin, S <14 (L) 30 - 200 01/13/2022 [facility] mg/dL 1:56 PM CDT Specimen Anatomical Collection Method Collection Time Receive d Time (Source) Location / / Volume Laterality Blood (Blood, 01/10/2022 4:04 AM 01/13/20 6:42 Venous) CDT AM CDT Cornelia Jurado M.D. LAB BLOOD ADD-ON Performing Organization Address City/State/ZIP Code Phon e Number [facility] [address] [place], [place] [address] [facility] [place] [address] [place] [id number] [place] (ABNORMAL) LD (Lactate Dehydrogenase) (01/10/2022 4:04 AM CDT) [facility] Monica 236 (H) 122 - 222 01/10/2022 DTL LD U/L 5:08 AM CDT Specimen Anatomical Collection Method Collection Time Receive d Time (Source) Location / / Volume Laterality Blood (Blood, 01/10/2022 4:04 AM 01/11/20 22 4:46 Venous) CDT AM CDT Cornelia Jurado M.D. LAB BLOOD NON ADD-ON Performing Organization Address City/[facility]/ZIP Code Phon e Number [facility] - [address] [place], [place] [address] [facility] [place] [address] Laboratories-[address] (ABNORMAL) SPSMA Result (01/10/2022 4:04 AM CDT) [facility] gist Method Time Signature Neutrophilic Segs 76 (H) 50 - 75 % 01/10/2022 [facility] and Bands 8:26 AM CDT Lymphocytes 17 (L) 18 - 42 % 01/10/2022 [facility] 8:26 AM CDT Monocytes 5 2 - 11 % 01/10/2022 [facility] 8:26 AM CDT Metamyelocytes 1 (H) <1 % 01/10/2022 [facility] 8:26 AM CDT Myelocytes 1 (H) <0.5 % 01/10/2022 [facility] 8:26 AM CDT Nucleated RBC 2 /100 WBC 01/10/2022 [facility] 8:26 AM CDT Manual Absolute 6.61 (H) 1.56 - 01/10/2022 [facility] Neutrophil Count 6.45 8:26 AM CDT x10(9)/L Comment: ----ADDITIONAL INFORMATION---- The manual absolute neutrophil count is derived from a manual differential count and therefore is not exactly comparable to the automated absolute armida trophil count. Interpretation SeeComment 01/10/2022 8:26 AM CDT D [facility]PM Comment: No morphologic features of hemo lysis are seen. Reviewed by: Ruth 01/10/2022 8:26 AM CDT [facility] Specimen Anatomical Collection Method Collection Time Receive d Time (Source) Location / / Volume Laterality Blood (Blood, 01/10/2022 4:04 AM 01/11/20 4:37 Venous) CDT AM CDT Cornelia Jurado M.D. LAB BLOOD ADD-ON Performing Organization Address City/State/ZIP Code Phon e Number [facility] - [address] [place], [place] [address] [facility] [place] [address] [facility] [address] Magnesium (01/10/2022 4:04 AM CDT) athologist Signature Magnesium, S 1.9 1.7 - 2.3 01/10/2022 DTL mg/dL 5:18 AM CDT Specimen Anatomical Collection Method Collection Time Receive d Time (Source) Location / / Volume Laterality Blood (Blood, 01/10/2022 4:04 AM 01/11/20 4:54 Venous) CDT AM CDT Cornelia Jurado M.D. LAB BLOOD ADD-ON Performing Organization Address City/[facility] Phon e Number [facility] - [address] [place], [place] [address] [place] [address] [facility] 200 [facility] Transfuse Red Blood Cells : (01/10/2022 1:51 [...] BLOOD NON ADD-ON Performing Organization Address City/State/[facility] Code Phon e Number [facility] - [address] [place], [place] [address] [facility] [place] [address] [facility] 200 [facility] (ABNORMAL) Hemoglobin (01/09/2022 9:13 PM CDT) athologist Signature Hemoglobin 6.6 (L) 11.6 - 15.0 01/09/2022 DTL g/dL 11:14 PM CDT Specimen Anatomical Collection Method Collection Time Receive d Time (Source) Location / / Volume Laterality Blood (Blood, 01/09/2022 9:13 PM 01/10/20 9:40 Venous) CDT PM CDT Cornelia Jurado M.D. LAB BLOOD ADD-ON Performing Organization Address City/State/ZIP Code Phon e Number [facility] - [address] [place], [place] [address] [facility] [place] [address] [facility] [address] Transfuse Red Blood [...] Organization Address City/State/ZIP Code Phon e Number [facility] - [address] [place], [place] [address] [facility] [place] [address] [facility] 200 [facility] ECG 12 Lead (01/09/2022 2:34 PM CDT) P athologist Signature Ventricular Rate 108 BPM MUSE ECG/Min PA Interval 158 ms MUSE QRSD Interval 86 ms MUSE QT Interval 360 ms MUSE QTC Interval 482 ms MUSE P [place] 85 degrees MUSE R [place] 117 degrees MUSE T Wave [place] 84 degrees MUSE Specimen Anatomical Collection Method [...] Jurado M.D. ECG ORDERABLES Performing Organization Address City/State/ZIP [...] 19. A Negative result means that the PhishMe COV ID-19 test did not detect SARS-CoV-2 virus in your sample. PhishMe COVID-19 test uses the ikeGPS Mo nitoring System. This test has received Emergency Use Authorization (EUA) by the U.S. Food and Drug Administration (FDA) and is used per man ufacturer instructions. Performance characteristic s were verified by [facility] in a manner consistent with CLIA requirements. Fact sheets for this Emerg ency Use Authorization (EUA) can be found at the following links: Providers: https://Speek.Glider/documentation/prov iders.pdf Patients: https://Speek.Glider/documentation/deshawn ents.pdf SARS Coronavirus 2, Source Nasopharynx DEFAULT 01/09/2022 2:05 PM CDT DTLR Specimen Anatomical Collection Method Collection Time Receive d Time (Source) Location / / Volume Laterality Varies 01/09/2022 1:45 PM 2 1:45 (Nasopharynx) CDT PM CDT Reese Reyes M.D. LAB MICROBIOLOGY - GENERAL O RDERABLES Performing Organization Address City/[facility]/ZIP Code Phon e Number PERFORMING LABS, REF [place] [address] INTERFACE Ref Interface 200 [facility] DTLR Performing Labs, [place] [address] Interface 200 [facility] Bacteria / Raudel Culture, Blood # 2 (01/09/2022 10:11 AM CDT) [facility] Method Time Signature Bacteria/Adriana No growth 01/14/2022 DTL da Culture, after 5 11:02 AM CDT Blood days of incubation. Specimen (Source) Anatomical Collection Method Collection Time Re ceived Time Location / / Volume Laterality Blood (Blood, 01/09/2022 10:11 01/09/2022 Peripheral Draw) AM CDT 10:32 AM CD T Comment: Specimen Source Site: Blood Narrative [facility] - [facility] - 01/14/2022 11:02 AM CDT Received Bactec Peds bottle Wilfredo Vigil P.A.-C. LAB MICROBIOLOGY - GENERAL O RDERABLES Performing Organization Address [facility] Phon e Number [facility] - [address] 200 [facility] (ABNORMAL) Dipstick, Urine (01/09/2022 10:04 AM CDT) [facility] gist Method Time Signature Hemoglobin, Negative Negative [...] City/State/ZIP Code Phon e Number [facility] [address] 200 [facility] pH, Random, Urine (01/09/2022 10:04 AM CDT) athologist [facility] pH, Random, U 5.9 4.5 - 8.0 01/09/2022 DTL 10:48 AM CDT Specimen Anatomical Collection Method Collection Time Receive d Time (Source) Location / / Volume Laterality Urine 01/09/2022 10:04 01/09/2022 AM CDT 10:21 AM CDT Migue Garcia Jr., M.D. LAB URINE ORDERABLES Performing Organization Address City/State/ZIP Code Phon e Number [facility] [address] Osmolality, Urine (01/09/2022 10:04 AM CDT) P athologist Signature Osmolality, U 428 150 - 1150 01/09/2022 DTL mOsm/kg 10:48 AM CDT Specimen Anatomical Collection Method Collection Time Receive d Time (Source) Location / / Volume Laterality Urine 01/09/2022 10:04 01/09/2022 AM CDT 10:21 AM CDT Migue Garcia Jr., M.D. LAB URINE ORDERABLES Performing Organization Address City/[facility] Code Phon e Number [facility] - [address] [place], [place] [address] [facility] DTL [place], [place] [address] [place] [address] (ABNORMAL) Microscopic Manual (01/09/2022 10:04 AM CDT) [...] Organization Address City/[facility] Code Phon e Number [facility] - [address] [place], [place] [address] [facility] [place] [address] Bacterial Culture, Aerobic + Susc, Urine (01/09/2022 10:04 AM CDT) Patholo gist [...] - GENERA L ORDERABLES Performing Organization Address City/[facility] Phon e Number [facility] - [address] [place], [place] [address] [facility] [place] [address] Laboratories-[place] [address] [address] [facility] (ABNORMAL) Urinalysis with Microscopic: Urine, Straight Catheter (01/09/2022 10:04 AM CDT) [facility] gist Method Time Signature Source Urine, 01/09/2022 DTL Urine, 10:21 AM CDT Straight Catheter Color, U [place] (A) 01/09/2022 DTL 10:21 AM CDT Clarity, [...] Organization Address City/[facility] Code Phon e Number [facility] - [address] [place], [place] [address] [facility] [place] [address] Laboratories-[place] [address] [facility] Lactate, POCT (01/09/2022 10:04 AM CDT) Analysis Performed At Path logist Time Signature Lactate, POCT Collected DEFAULT 01/09/2022 SMLX 10:04 AM CDT Specimen Anatomical Collection Method Collection Time Receive d Time (Source) Location / / Volume Laterality Blood (Blood, 01/09/2022 10:04 01/09/2022 Venous) AM CDT 10:04 AM CDT Wilfredo Vigil P.A.-C. LAB POCT ORDERABLES - DEVICE Performing Organization Address City/[facility] Phon e Number [facility] - [address] [place], [place] [address] Bacteria / Raudel Culture, Blood #1 [...] - GENERAL O RDERABLES Performing Organization Address City/[facility] Phon e Number [facility] - [address] [place], [place] [address] [place] [address] [facility] 200 [facility] Glucose, POCT (01/09/2022 10:04 AM CDT) Analysis Performed At Patho logist Time Signature Glucose, POCT, Collected DEFAULT 01/09/2022 SMLX B 10:04 AM CDT Specimen Anatomical Collection Method Collection Time Receive d Time (Source) Location / / Volume Laterality Blood (Blood, 01/09/2022 10:04 01/09/2022 Capillary) AM CDT 10:04 AM CDT Wilfredo Vigil P.A.-C. LAB POCT ORDERABLES-MANUAL Performing Organization Address City/[facility] Phon e Number [facility] - [address] [place], [place] [address] [facility] SMLX [place], [place] [id number] [place] [address] (ABNORMAL) Hepatic Function Panel (01/09/2022 10:03 AM CDT) [facility] Method Time Signature Bilirubin, Total, S [...] Organization Address City/State/ZIP Code Phon e Number [facility] - [address] [place] [address] [facility] [place] [address] [facility]ly [facility]-[address] (ABNORMAL) Prothrombin Time (PT) (01/09/2022 10:03 AM CDT) [facility] Method Time Signature Prothrombin 28.3 (H) [...] Organization Address City/State/ZIP Code Phon e Number [facility] - [address] [place], [place] [address] [facility] [place] [address] [facility] [address] (ABNORMAL) CBC with Differential, Blood (01/09/2022 10:03 AM CDT) P athologist Signature Hemoglobin 6.2 (L) 11.6 - [...] - 0.08 x10(9)/L 01/09/2022 11:03 AM CDT DH Specimen Anatomical Collection Method Collection Time Receive d Time (Source) Location / / Volume Laterality Blood (Blood, 01/09/2022 10:03 01/09/2022 Venous) AM CDT 10:17 AM CDT Wilfredo Vigil P.A.-C. LAB BLOOD ADD-ON Performing Organization Address City/[facility] Phon e Number [facility] - [address] [place], [place] [address] [place] [address] hCG (Human Chorionic Gonadotropin), Quantitative, (01/09/2022 10:02 AM CDT) P athologist Signature HCG, 0.5 <5 IU/L 01/09/2022 STMA Quantitative, 10:37 AM CDT , P Specimen Anatomical Collection Method Collection Time Receive d Time (Source) Location / / Volume Laterality Blood (Blood, 01/09/2022 10:02 01/09/2022 Venous) AM CDT 10:17 AM CDT Wilfredo Vigil P.A.-C. LAB BLOOD ADD-ON Performing Organization Address City/[facility] Phon e Number [facility] - [address] [place], [place] [address] [facility] [place] [address] (ABNORMAL) Basic Metabolic Panel (01/09/2022 10:02 [...] Organization Address City/State/ZIP Code Phon e Number [facility] - [address] [place], [place] [address] [facility] [place] [address] [facility] [address] [place] [address] [facility] [address] Glucose, POCT (01/09/2022 10:01 AM CDT) athologist Signature Glucose, POCT, 131 70 - 140 01/09/2022 PCLX B mg/dL 10:02 AM CDT Site Venstick 01/09/2022 PCLX 10:02 AM CDT Specimen Anatomical Collection Method Collection Time Receive d Time (Source) Location / / Volume Laterality Blood 01/09/2022 10:01 01/09/2022 AM CDT 10:02 AM CDT Unknown Provider LAB POCT ORDERABLES-MANUAL Performing Organization Address City/State/ZIP Code Phon e Number POC [facility] [address] [place] [address] [place] [address] [place] [facility] 200 [facility] (ABNORMAL) Dipstick, POCT, Urine (01/09/2022 10:00 AM CDT) Patholo gist Method Time Signature Glucose, Negative Negative 01/09/2022 PCED POCT, U mg/dL 10:02 AM CDT Ketone, POCT, Negative Negative 01/09/2022 PCED U mg/dL 10:02 AM CDT Specific 1.015 1.005 - 01/09/2022 PCED [place], 1.030 10:02 AM CDT POCT, U Blood, [...] Code Phon e Number POC RST [facility] 200 [place] [address] [place] [address] [place] [facility] 200 [facility] (ABNORMAL) Ammonia (01/09/2022 9:59 AM CDT) P athologist Signature Ammonia, P 119 (H) <=30 01/09/2022 DTL mcmol/L 11:05 AM CDT Specimen Anatomical Collection Method Collection Time Receive d Time (Source) Location / / Volume Laterality Blood (Blood, 01/09/2022 9:59 AM 01/10/20 22 Venous) CDT 10:24 AM CDT Wilfredo DanielsA.-C. LAB BLOOD NON ADD-ON Performing Organization Address City/State/ZIP Code Phon e Number [facility] - [address] [place] [address] [facility] 200 [facility] Lipase (01/09/2022 9:56 AM CDT) P athologist Signature Lipase, S 25 13 - 60 U/L 01/09/2022 3:00 DTL PM CDT Specimen Anatomical Collection Method Collection Time Receive d Time (Source) Location / / Volume Laterality Blood (Blood, 01/09/2022 9:56 AM 01/10/20 22 2:41 Venous) CDT PM CDT Cornelia Jurado M.D. LAB BLOOD ADD-ON Performing Organization Address City/[facility]/ZIP Code Phon e Number [facility] - [address] [place] [address] [facility] [place] [address] Type and Screen (with reflex Antibody ID) (01/09/2022 9:56 AM CDT) [facility] Method Time Signature ABORh B Pos [...] Leslie Gupta M.D. LAB BLOOD BANK TEST ORDPatrica ELISE Performing Organization Address City/[facility]/ZIP Code Phon e Number [facility] - [address] [place] [address] [facility] STRM [place] [address] (ABNORMAL) Lactate, POCT (01/09/2022 9:53 AM CDT) [...] Address City/State/ZIP Code Phon e Number POC [facility] [address] [place] [address] PCLX [facility] [place] [address] [place] [facility] [address] documented in [...] or score 4-6 of 10, Starting on Tu01/13/22 at 1322 Given 01/14/2022 9:39 AM CDT [...] D3) 0822 (Gi ekaterina - Provider: Yanira Martinze R.N.) 0813 (Given - Provider: Leandra Estevez R.N.) 0939 (G iven - Provider: Leandra Estevez R.N.) 400 Units, oral, Daily, First dose on 01/10/22 at 0900, cholecalciferol 400 units oral daily was interchanged for ergocalciferol 400 units oral daily ciprofloxacin tablet 500 mg (CIPRO) 1224 (Given - Provider: Leandra Estevez R.N.) 500 mg, oral, Daily before breakfast, [...] - Reason: Patient/family refused)2015 (Given - Provider: Kindra Knight RSumaNSuma) 0941 (Given - Provider: Leandra Estevez R.N.)1511 (Given - Provider: Leandra Estevez R.N.) 10 g, oral, 3 times daily, First dose on Wed01/09/22 at 2100 lidocaine 5 % 1 patch (LIDODERM) 1142 (Not Given - Pro vider: Yanira Martinez R.N. - Reason: Patient/family refused)1247 (Medication Applied - Provider: Yanira Martinez R.N.) 0047 (Medication Removed - Provider: Preston Dickson RSumaNSuma)0813 (Medication Applied - Provider: Leandra Estevez R.N.)202 (Medication Removed - Provider: Kindra Knight RSumaNSuma) 0939 (Medication Applied - Provider: Leandra Estevez R.N.)1748 (Due: Medication Removed - Provider: Discharge Provider, Automatic - Comment: Time automatically adjusted from order being discontinued) 1 patch, transdermal, Administer over 12 Hours, Daily, First dose on Wed01/12/22 at 1115, Remove after 12 hours. For R lower back pain pantoprazole DR tablet 40 mg (PROTONIX) (CANCELED) 063 4 (Given - Provider: Almita Britt R.N.)1506 (Given - Provider: Yanira Martinez R.N.) 40 [...] split tablet. rifAXIMin tablet 550 mg (XIFAXAN) 08 (Given - Provid er: Yanira Martinez R.N.)1999 [...] (VITAMIN B1) 08 (Given - Prov ider: Yanira Martinez R.N.) 0813 (Given - Provider: [...] at 0030 vitamin A capsule 3,000 mcg 0825 (Given - Provider: Andrew GuNSuma) 0943 (Given - Provider: Leandra Estevez R.N.) 3,000 mcg, oral, 3 times weekly (Once pe day on Wed), First dose on Wed01/12/22 [...] (DILAUDID) (CANCELED) 0311 ( Given - Provider: Almita Britt RSumaNSuma)0821 (Given - Provider: Andrew StevensonNSuma) 1 mg, oral, Every 4 hours PRN, [...] ) 0906 (Given - Provider: Yanira Martinez RGabby)1736 (Given - Provider: Yanira Martinez R.N.) 4 mg, oral, Every 6 hours PRN, nausea, v omiting, Starting on Wed01/09/22 at 1417, When splitting ODT at bedside, handle with gloves and a pill splitter to prevent moisture contact. prochlorperazine injection 5 mg (COMPAZINE) 0904 (Not Given - Provider: Yanira Martinez R.N. - Reason: Patient/family refused)1738 (Given - Provider: [...] as of this encounter Care Teams Hand Ii Blocker Relationship Specialty Start Date End Date Ana Red P.A.-C. PCP - General Internal Medicine 12/01/[address] [place] [phone] [facility] [place] [facility] 08/25/21 Ervin Schroeder MD Referring Provider Family Medicine 03/24/[address] [place] [address] documented as of this encounter
--- OUTSIDE RECORDS SUMMARY | 2022-02-04 23:10 | XMS_ITS | Encounter Summary ---
:1990 Author Organization [facility] Address [address] [place] [address] Care Team Providers Name Role Phone Ana Red P.A.-C. Primary Care Provider [phone] Reason for Visit Transplant (Routine) - Closed Specialty Diagnoses / Procedures Referred By Contact Refer red To Contact Transplant Surgery / Joel Tan [facility] L.I.C.S.W., M.S.W. [address] [place] [phone] Referral ID Status Reason Start Date Expiration Date Visits Requ ested Visits Authorized [id number] Closed 10/29/2021 10/29/2022 1 1 Encounter Details Date Type Department Care Team Description 01/13/2022 Telemedicine Joel Sage hosis Alcoholic Center for L, L.I.C.S.W., (HCC) (Primar y Dx) Transplantation and M.S.W. Clinical Regeneration in [address] [place], [place] [address] [facility] [address] [place] [address] [phone] Social History Tobacco Use Types Packs/Day Years [...] you attend oriental orthodox or Never 2021 caodaism services? 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 - 01/13/2022 10:45 AM CDT Consult conducted remotely via real-time audio/video technology through HIPAA compliant Zoom by Shala Shields M.S.Hazel to the patient at her hospital room: [place] [address]. This Video Visit was performed during the [...] follow up. She is currently hospitalized at [facility]. 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 He stated he has spoken with [...] medical marijuana. She stated she [facility], Ana Red PA-C, at [facility], whom she states has prescribed herFlexeril due to a pulled muscle in the patient's back and also back spasms. The patient is wonderingabout working with physical therapy after her discharge from the hospital. I advised the patient to contact her nurse and/or doctor while she is currently hospitalized to inquire about this and have also informed inpatient social media senior associate, Alexei Deshpande, [facility], about the patient's inquiry. The patient [...] management per Radhames Neumann, Ph.D., L.P. in [place] [facility] Psychiatry (Pain Rehabilitation), 10/06/2021: - virtual [...] her in the mail in regards to [facility]'s outpatient addiction program and believes they are [...] patient met with Dr. Keen with [facility] on 10/22/2021 who indicatedthe following: She [...] 1) Message has been sent to Dr. Jerome Dr. Neumann, Dr. Frazier, Dr. Glenny Sales, [...] Specialty Care Team Description [facility] Radiology [facility] 2 Encounter Tyrell Rodriguez M.D. [address] [place] [phone] [facility] Gastroenterology and [facility] 2 Encounter Hepatology Tyrell Rodriguez M.D. [address] [place] [phone] [facility] ESOPHAG OGASTRODUODENOSCOPY 2 Hepatology Tyrell Rodriguez M.D. [address] [place] [phone] Telemedicine Transplant 2 Lab Laboratory Medicine Karin, 2 Adeline Gannon M.D., Ph.D. [address] [place] [phone] Lab Laboratory Medicine Olinda Frazier M.D., Ph.D. [address] [place] [phone] Office Visit Transplant Olinda Frazier M.D., Ph.D. [address] [place] [phone] Office Visit [facility], 2 Medicine Vernell Perez [address] [place] [phone] Appointment Radiology Matthew Jerome 2 YVikBLilian Bedolla [address] [place] [phone] Appointment Gastroenterology and [place], 2 Hepatology Yue Burciaga M.D. [address] [place] [phone] Office Visit Gastroenterology and Matthew Jerome 2 Hepatology Vik RodriguezBLilian Bedolla [address] [place] [phone] Appointment Radiology Matthew Jerome 2 YVikB.SLilian Moise [address] [place] [phone] Scheduled Procedures Name Priority Associated Diagnoses Date/Time [...] as of this encounter Care Teams Manager Instrumentation Relationship Specialty Start Date End Date Ana Red P.A.-C. PCP - General Internal Medicine 12/01/[address] [place] [phone] [facility]- [place] lab 08/25/21 Ervin Schroeder MD Referring Provider Family Medicine 03/24/[address] [place] [phone] documented as of this encounter
--- OUTSIDE RECORDS SUMMARY | 2022-02-04 23:11 | XMS_ITS | Encounter Summary ---
:1990 Author Organization [facility] Address [address] [place] [address] Care Team Providers Name Role Phone Ana Red P.A.-C. Primary Care Provider [phone] Encounter Details Date Type Department Care Team Description 12/11/2021 Clinical Communication Department of Felicita Spicer Gastroenterology in [place] [place], [place] [phone] [place] [address] ([facility]) [place] [phone] Social History Tobacco Use Types Packs/Day [...] or relatives? How often do you attend worship or Never 2021 restorationism services? Do you belong to any clubs or No 07/17/2021 organizations such as worship groups, unions, [employer] or athletic groups, or school groups? How [...] the highest technical, or vocational p [employer] degree you have received? 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 - 12/11/2021 10:51 AM CDT Network Operations Project Manager called and spoke with Radiology nursing department [...] Thank you! Telephone Encounter - Felicita Spicer L.PSumaN. - 12/11/2021 10:49 AM CDT ----- Message [...] seems they used it for her in [facility] last week and it worked very well for her. Otherwise she has significant anxiety from the procedure. Please let me know Thank you OM documented in this encounter Plan of Treatment Upcoming Encounters Date Type Specialty Care Team Description Hospital Radiology Matthew Jerome 2 Encounter Tyrell Rodriguez M.D. [address] [place] [phone] [facility] Gastroenterology and [facility] [place] 2 Encounter Hepatology Tyrell Rodriguez, Lilian [address] [place] [address] [phone] Surgery Gastroenterology and [facility] ESOPHAG OGASTRODUODENOSCOPY 2 Hepatology Tyrell Rodriguez, Lilian [address] [place] [phone] Telemedicine Transplant 2 Lab Laboratory Medicine Karin, Olinda Gannon M.D., Ph.D. [address] [place] [phone] Lab Laboratory Medicine Karin 2 Adeline Gannon M.D., Ph.D. [address] [place] [phone] Office Visit Transplant Karin, 2 Adeline Gannon M.D., Ph.D. [address] [place] [phone] Office Visit [facility], 2 Medicine Vernell Perez [address] [place] [phone] Appointment Radiology Matthew Jerome 2 YJoshuaBSumaBSumaSLilian Moise [address] [place] [phone] Appointment Gastroenterology demian Silver, 2 Hepatology Yue Burciaga M.D. [address] [place] [phone] Office Visit Gastroenterology and Matthew Jerome 2 Hepatology Joshua RodriguezB.B.SSuma, Lilian [address] [place] [phone] Appointment Radiology Matthew Jerome 2 Y M.B.B.SSuma, Lilian [address] [place] [phone] Scheduled Procedures Name Priority Associated Diagnoses [...] as of this encounter Care Teams Manager Hydraulic Relationship Specialty Start Date End Date Ana Red P.A.-C. PCP - General Internal Medicine 12/01/[address] [place] [phone] [facility] 08/25/21 Ervin Schroeder MD Referring Provider Family Medicine 03/24/[address] [place] [phone] documented as of this encounter
--- OUTSIDE RECORDS SUMMARY | 2022-02-04 23:11 | XMS_ITS | Encounter Summary ---
:1990 Author Organization [facility] Address [address] [place] [address] Care Team Providers Name Role Phone Ana Red P.A.-C. Primary Care Provider Reason for Visit Reason Comments Follow-up Transplant evaluation Outpatient (Routine) - Closed Specialty Diagnoses / Referred By Contact Referred To Procedures Contact Gastroenterology and Diagnoses Cirrhosis Alcoholic (HCC) Hypertension Portal (HCC) Thrombocytopenia (HCC) Abnormal Liver Function Test Deficiency Vitamin [facility] M[facility] Lilian [address] [place] [address] Referral ID Status Reason Start Date Expiration Date Visits Requ ested Visits Authorized [id number] Closed 10/08/2021 10/08/2022 1 1 Encounter Details Date Type Department Care Team Description 12/10/2021 Office Visit Department of Matthew Jerome Cirrhosis Alco holic (HCC) (Primary Dx); Gastroenterology in , M.B.B.SSuma, Hyperten neptali Portal (HCC); [place], [place] Lilian Thrombocytopenia (HCC); [address] 1025 [facility] Abnormal Liver Function Test; [place] [phone] [place], [place] Deficiency Vitamin A; [phone] Ascites Chronic; [phone] Hepatic Encepha lopathy Without Coma (HCC) (Work) [...] do you attend religion or Never 2021 sikhism services? Do you [...] technical, or vocational p [facility] degree you have received? 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 Please call Parris Tan in [place]. Please follow with the psych counselor at [...] 31 y.o. female who presents for a hospital this follow-up for hepatic encephalopathy. 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 She was admitted in [place] during the month of October for about [...] she missed the voice messages from the social service liaison Parris Tan, and agreed to call her [...] out to the transplant psych team in [place] and Zenobia Hollingsworth sent the information and [...] for missing the voice messages from the social service liaison Parris Tan and promised me that she [...] October 2021 #15 Newly diagnosed PFO with [id number] atrial shunt: Echo done March 2020 # [...] ADHD 2007 # History of Tobacco use Continue to follow with Transplant Psychiatry Follow-up in GI/Hepatology clinic in 1 to 2 months. ordered It was a pleasure seeing Ms. Carias today. We answered her questions, and we would be happy to answerany further questions she has. OLAYINKA Trotter Gastroenterology, Hepatology and Transplant hepatology [facility] documented in this encounter Plan of Treatment Upcoming Encounters Date Type Specialty Care Team Description Hospital Radiology Matthew Jerome 2 Encounter Tyrell Rodriguez M.D. [address] [place] [phone] Hospital Gastroenterology and Matthew Jerome 2 Encounter Hepatology Tyrell Rodriguez M.D. [address] [place] [phone] Surgery Gastroenterology and Matthew Jerome ESOPHAG OGASTRODUODENOSCOPY 2 Hepatology Tyrell Rodriguez M.D. [address] [place] [phone] Telemedicine Transplant 2 Lab Laboratory Medicine Karin, 2 Adeline Gannon M.D., Ph.D. [address] [place] [phone] Lab Laboratory Medicine Karin, 2 Adeline Gannon M.D., Ph.D. [address] [place] [phone] Office Visit Transplant Karin, 2 Adeline Gannon M.D., Ph.D. [address] [place] [phone] Office Visit Community Internal [facility], 2 Medicine Carlotta PerezCSuma [address] [place] [phone] Appointment Radiology Matthew Jerome 2 Tyrell Rodriguez M.D. [address] [place] [phone] Appointment Gastroenterology and [place], 2 Hepatology Yue Burciaga M.D. [address] [place] [phone] Office Visit Gastroenterology and Queenie Matthew 2 Hepatology Vik RodriguezBLilian Bedolla [address] [place] [phone] Appointment Radiology Matthew Jerome 2 YTyrell M.D. [address] [place] [phone] Scheduled Procedures Name Priority Associated [...] as of this encounter Care Teams Manager Appointment Relationship Specialty Start Date End Date Ana Red P.A.-C. PCP - General Internal Medicine 12/01/[address] [place] [phone] [facility] [place] lab 08/25/21 Ervin Schroeder MD Referring Provider Family Medicine 03/24/[address] [place] [phone] documented as of this encounter
--- OUTSIDE RECORDS SUMMARY | 2022-02-04 23:11 | XMS_ITS | Encounter Summary ---
:1990 Author Organization [facility] Address [address] [place] [address] Care Team Providers Name Role Phone Ana Red P.A.-C. Primary Care Provider [phone] Encounter Details Date Type Department Care Team Description 12/04/2021 Clinical Communication Division of Jethro, Gastroenterology in [place] E[place]var[place], [place] [address] [facility] [address] [place] [phone] Social History Tobacco Use Types Packs/Day Years [...] do you attend spiritism or Never 2021 hinduism services? Do you belong to any clubs or No 07/17/2021 organizations such as spiritism groups, unions, fraTargeted [employer] or athletic groups, or school groups? 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 [address] [place] [phone] Hospital Gastroenterology and Matthew Jerome 2 Encounter Hepatology Tyrell Rodriguez M.D. [address] [place] [phone] Surgery Gastroenterology and Matthew Jerome ESOPHAG OGASTRODUODENOSCOPY 2 Hepatology Tyrell Rodriguez M.D. [address] [place] [phone] Telemedicine Transplant 2 Lab Laboratory Medicine Karin, 2 Adeline Gannon M.D., Ph.D. [address] [place] [phone] Lab Laboratory Medicine Karin, 2 Adeline Gannon M.D., Ph.D. [address] [place] [phone] Office Visit Transplant Karin, 2 Adeline Gannon M.D., Ph.D. [address] [place] [phone] Office Visit [facility] Internal [facility], 2 Medicine Carlotta PerezCSuma [address] [place] [phone] Appointment Radiology Matthew Jerome 2 Y MSumaBSumaBLilian Bedolla [address] [place] [phone] Appointment Gastroenterology and [place], 2 Hepatology Yue Burciaga M.D. [address] [place] [phone] Office Visit Gastroenterology and Matthew Jerome 2 Hepatology Joshua RodriguezBSumaBLilian Bedolla [address] [place] [phone] Appointment Radiology Matthew Jerome 2 Y M.B.Lilian Salas [address] [place] [phone] Scheduled Procedures Name Priority Associated Diagnoses Date/Time ESOPHAGOGASTRODUODENOSCOPY Cirrhosis Alc oholic (HCC) 02/10/2022 8:45 AM CDT Hypertension Portal (HCC) documented as of this encounter Visit Diagnoses Diagnosis Ascites - Primary Cirrhosis Alcoholic (HCC) Hypertension Portal (HCC) documented in this encounter Additional Health Concerns Assessment Noted Time PHQ-9 Depression Total Score: 10/06/2021 5:00 PM CD T documented as of this encounter Care Teams Senior Marketing Data Analyst Relationship Specialty Start Date End Date Ana Red P.A.-C. PCP - General Internal Medicine 12/01/[address] [place] [phone] [facility]- [place] lab 08/25/21 Ervin Schroeder MD Referring Provider Family Medicine 03/24/[address] [place] [phone] documented as of this encounter
--- OUTSIDE RECORDS SUMMARY | 2022-02-04 23:11 | XMS_ITS | Encounter Summary ---
:1990 Author Organization [facility] Address [address] [place] [address] Care Team Providers Name Role Phone Ana Red P.A.-C. Primary Care Provider Reason for Visit Reason Comments Back Pain Encounter Details Date Type Department Care Team Description 12/19/2021 - Emergency [facility] Katrin Gonzalez M.D., Ph.D. [address] [place] [phone] Pain Back (Primary 12/20/2021 Emergency Department Migue Garcia Jr., M.D. [address] [place] [phone] Dx) [address] [place] [phone] Social History Tobacco Use Types Packs/Day [...] do you attend restoration or Never 2021 nondenominational services? 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 ergocalciferol (DRISDOL) Take 50,000 Units by 0 1 06/01/2020 01/14/2022 50,000 Unit capsule mouth once a week. Mondays ergocalciferol, vitamin 50,000 Units. 0 01/10/2022 D2, 10 mcg (400 unit) tablet [...] Pain Back Ted Gonzalez M.D., Ph.D. 12/20/21 2236 Harinder Nguyễn M.D. - 12/20/2021 2:40 AM [...] Team Description [facility] Radiology [facility] 2 Encounter Tyrell Rodriguez M.D. [address] [place] [phone] [facility] Gastroenterology and [facility] [place] 2 Encounter Hepatology Tyrell Rodriguez M.D. [address] [place] [phone] Surgery Gastroenterology and Matthew Jerome ESOPHAG OGASTRODUODENOSCOPY 2 Hepatology Joshua RodriguezBSumaBGraeme, Lilian [address] [place] [address] Telemedicine Transplant 2 Lab Laboratory Medicine Karin, 2 Adeline Gannon M.D., Ph.D. [address] [place] [phone] Lab Laboratory Medicine Karin, 2 Adeline Gannon M.D., Ph.D. [address] [place] [phone] Office Visit Transplant Karin, 2 Adeline aGnnon M.D., Ph.D. [address] [place] [phone] Office Visit [facility] Internal [facility], 2 Medicine Vernell Perez [address] [place] [phone] Appointment Radiology Matthew Jerome 2 Jennifer M.B.B.SSuma, Lilian [address] [place] [address] Appointment Gastroenterology and Adrianne, 2 Hepatology Yue Burciaga M.D. [address] [place] [phone] Office Visit Gastroenterology and Matthew Jerome 2 Hepatology Joshua RodriguezBLilian Staples [address] [place] [phone] Appointment Radiology Queenie Matthew 2 Y, Lilian Santillan [address] [place] [phone] Scheduled Procedures Name Priority Associated Diagnoses Date/Time [...] Dipstick, POCT, Urine (12/20/2021 4:20 AM CDT) [facility] Method Time Signature Glucose, POCT, Negative Negative 12/20/2021 PCED U mg/dL 4:22 AM CDT Ketone, POCT, Negative Negative 12/20/2021 PCED U mg/dL 4:22 AM CDT Specific 1.020 1.005 - 12/20/2021 PCED [place], POCT, 1.030 4:22 AM CDT U Blood, [...] City/State/ZIP Code Phon e Number POC RST [facility] [address] [place] [address] OUTPATIENT LABS PCED [facility] [place] [address] [place] POC [address] Dipstick, Urine (12/20/2021 4:17 AM CDT) [facility] Method Time Signature Hemoglobin, Negative Negative [...] Address City/State/ZIP Code Phon e Number [facility] - [address] [place], [place] [address] [place] [address] [facility] [address] [facility] pH, Random, Urine (12/20/2021 4:17 AM CDT) P athologist Signature pH, Random, U 5.5 4.5 - 8.0 12/20/2021 DTL 5:17 AM CDT Specimen Anatomical Collection Method Collection Time Receive d Time (Source) Location / / Volume Laterality Urine 12/20/2021 4:17 AM 2 5:00 CDT AM CDT Harinder Nguyễn M.D. LAB URINE ORDERABLES Performing Organization Address City/State/ZIP Code Phon e Number [facility] - [address] [place], [place] [address] [place], [place] [id number] [place] [address] [address] [facility] Osmolality, Urine (12/20/2021 4:17 AM CDT) P athologist Signature Osmolality, U 451 150 - 1150 12/20/2021 DTL mOsm/kg 5:17 AM CDT Specimen Anatomical Collection Method Collection Time Receive d Time (Source) Location / / Volume Laterality Urine 12/20/2021 4:17 AM 2 5:00 CDT AM CDT Harinder Nguyễn M.D. LAB URINE ORDERABLES Performing Organization Address City/State/ZIP Code Phon e Number [facility] - [address] [place], [place] [address] [place] [address] [facility] [address] Microscopic Manual (12/20/2021 4:17 AM CDT) P athologist Signature Microscopy Normal 12/20/2021 DTL 5:29 AM CDT Casts, Hyaline 1-3 /lpf 12/20/2021 DTL 5:29 AM CDT Specimen Anatomical Collection Method Collection Time Receive d Time (Source) Location / / Volume Laterality Urine 12/20/2021 4:17 AM 5:00 CDT AM CDT Harinder Nguyễn M.D. LAB URINE ORDERABLES Performing Organization Address [facility] Phon e Number [facility] - 200 [place], [place] [address] [place] [address] [place] [address] [address] Bacterial Culture, Aerobic + Susc, Urine (12/20/2021 4:17 AM CDT) [facility] Method Time Signature Urine Culture No growth 12/21/2021 DT after 1 day 8:03 AM CDT of incubation. Specimen Anatomical Collection Method Collection Time Receive d Time (Source) Location / / Volume Laterality Urine (Urine, 12/20/2021 4:17 AM 12/21/19 7:48 Midstream) CDT AM CDT Comment: Specimen Source Site: Urine Harinder Nguyễn M.D. LAB MICROBIOLOGY - GENERAL O RDERABLES Performing Organization Address [facility] Phon e Number [facility] - 200 [place], [place] [address] [facility] [place] [address] [address] Urinalysis with Microscopic: Urine, Midstream (12/20/2021 4:17 AM CDT) [facility] Method Time Signature Source Urine, Urine, 12/20/2021 [...] M.D. LAB URINE ORDERABLES Performing Organization Address City/[facility]/ZIP Code Phon e Number [facility] - 200 [place], [place] [address] [facility] [place] [address] Lactate (12/20/2021 3:36 AM CDT) P athologist Signature Lactate, P 1.8 0.5 - 2.2 12/20/2021 [facility] mmol/L 3:54 AM CDT Specimen Anatomical Collection Method Collection Time Receive d Time (Source) Location / / Volume Laterality Blood (Blood, 12/20/2021 3:36 AM 12/21/19 3:41 Venous) CDT AM CDT Harinder Nguyễn M.D. LAB BLOOD NON ADD-ON Performing Organization Address City/[facility]/ZIP Code Phon e Number [facility] - 200 [place], [place] [address] [facility] [place] [address] Lipase (12/20/2021 3:36 AM CDT) P athologist Signature Lipase, S 36 13 - 60 U/L 12/20/2021 4:45 DTL AM CDT Specimen Anatomical Collection Method Collection Time Receive d Time (Source) Location / / Volume Laterality Blood (Blood, 12/20/2021 3:36 AM 12/21/19 4:00 Venous) CDT AM CDT Harinder Nguyễn M.D. LAB BLOOD ADD-ON Performing Organization Address City/[facility]/ZIP Code Phon e Number [facility] - 200 [place], [place] [address] [facility] [place] [address] Laboratories-[facility] 200 [facility] (ABNORMAL) Hepatic Function Panel (12/20/2021 3:36 AM [...] Address City/State/ZIP Code Phon e Number [facility] - 200 [place], [place] [address] [facility] [place] [address] [address] hCG (Human Chorionic Gonadotropin), Quantitative, (12/20/2021 3:36 AM CDT) athologist Signature HCG, 0.5 <5 IU/L 12/20/2021 [facility] Quantitative, 4:31 AM CDT , P Specimen Anatomical Collection Method Collection Time Receive d Time (Source) Location / / Volume Laterality Blood (Blood, 12/20/2021 3:36 AM 12/21/19 3:41 Venous) CDT AM CDT Harinder Nguyễn M.D. LAB BLOOD ADD-ON Performing Organization Address City/State/ZIP Code Phon e Number [facility] - [address] [place], [place] [address] [facility] [place] [address] Laboratories-[facility] [address] (ABNORMAL) Basic [...] CDT eGFR-Black/Afri 81 >=60 12/20/2021 [facility] can Canadian mL/min/BSA 4:08 AM CDT Comment: ----ADDITIONAL INFORMATION---- [...] Address City/State/ZIP Code Phon e Number [facility] - 200 [place], [place] [address] [facility] [place] [address] Laboratories-[facility] [address] [facility] (ABNORMAL) CBC with Differential, Blood (12/20/2021 3:36 AM CDT) [facility] Method Time Signature Hemoglobin 8.0 (L) [...] Address City/State/ZIP Code Phon e Number [facility] - 200 [place], [place] [address] [facility] [place] [place] [address] Laboratories-[facility] [address] documented in [...] (COMPLETED) 0026 (Given - Provider: Benja Rosado RSumaNSuma) 10 mg, oral, Once, On 12/20/21 at 0016, For 1 dose ketorolac injection 15 mg (TORADOL) (COMPLETED) 0402 (Given - Provider: Ramirez Castrejon III R.N.) 15 mg, intravenous, Once, On 12/20/21 [...] of this encounter Care Teams Manager Of School Relationship Specialty Start Date End Date Ana Red P.A.-C. PCP - General Internal Medicine 12/01/[address] [place] [address] ADI PANIAGUA [phone] [facility] [place] lab 08/25/21 Ervin Schroeder MD Referring Provider Family Medicine 03/24/[address] [place] [address] [place] [address] documented as of this encounter
--- OUTSIDE RECORDS SUMMARY | 2022-02-04 23:11 | XMS_ITS | Encounter Summary ---
:1990 Author Organization [facility] Address [address] [place] [address] Care Team Providers Name Role Phone Ana Red P.A.-C. Primary Care Provider [phone] Encounter Details Date Type Department Care Team Description 12/15/2021 Lab Department of Adeline Frazier Alcohol Moderate Or Severe Use Disorder (Dependence) Uncomplicated (HCC); Laboratory Medicine and Lilian Gannon, Ph.D. Cannabis Use Unspecified Uncomplicated Pathology, [place] [address] [place] [address], in [facility] [phone] [place] [address] [place] [phone] Social History Tobacco Use Types [...] do you attend evangelical or Never 2021 pentecostal services? Do you belong to any clubs or No 07/17/2021 organizations such as evangelical groups, unions, [employer] or athletic groups, or school groups? 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 [address] [place] [phone] Surgery Gastroenterology and Matthew Jerome ESOPHAG OGASTRODUODENOSCOPY 2 Hepatology Tyrell Rodriguez M.D. [address] [place] [phone] Telemedicine Transplant 2 Lab Laboratory Medicine Karin, 2 Adeline Gannon M.D., Ph.D. [address] [place] [phone] Lab Laboratory Medicine Karin, 2 Adeline Gannon M.D., Ph.D. [address] [place] [phone] Office Visit Transplant Karin, 2 Adeline Gannon M.D., Ph.D. [address] [place] [phone] Office Visit [facility], 2 Medicine Farida Perez-C. [address] [place] [phone] Appointment Radiology Matthew Jerome 2 Vik RodriguezBLilian Bedolla [address] [place] [phone] Appointment Gastroenterology and Adrianne, 2 Hepatology Yue Burciaga M.D. [address] [place] [phone] Office Visit Gastroenterology and Matthew Jerome 2 Hepatology Vik RodriguezBLilian Bedolla [address] [place] [phone] Appointment Radiology Queenie Matthew 2 YTyrell M.D. [address] [place] [phone] Scheduled Procedures Name Priority Associated Diagnoses [...] (THC) Confirmation, Urine (12/15/2021 5:58 PM CDT) [facility] Method Time Signature Carboxy-THC- by 19 Cutoff: 12/18/2021 [facility] GC/MS 3.0 ng/mL 6:38 AM CDT Carboxy-THC Positive. 12/18/2021 [facility] Interpretation 6:38 AM CDT Comment: ----ADDITIONAL INFORMATION---- This report is intended for use in clini ada monitoring and management of patients. ??It is not intended for use i n employment-related testing. This test was developed and its performa nce characteristics determined by [facility] in a manner consistent with CLIA requirements. [...] Code Phon e Number [facility] [address] [place], [place] [address] [place] [address] [facility] [place] [address] Laboratory Medicine and Pathology [address] [place] [address] Dr. CHAPPELL (ABNORMAL) Drug Abuse Survey with Confirmation, Urine (12/15/2021 5:58 PM CDT) [facility] Method Time Signature Alcohol Negative Cutoff: [...] URINE ORDERABLES Performing Organization Address [facility] Phon e Number [facility] [place] [address] [place], [place] [address] [facility] [place] [address] Laboratory Medicine and Pathology [address] [place] [address] Dr. CH[place]LL Ethyl Glucuronide Confirmation, Random, Urine (12/15/2021 5:51 PM CDT) [facility] Method Time Signature Ethyl Glucuronide Negative Cutoff: 12/17/2021 [facility] Confirmation, U 250 ng/mL 10:34 AM CDT Ethyl Sulfate Negative Cutoff: 12/17/2021 [facility] 100 ng/mL 10:34 AM CDT Ethyl Gluc/Sulfate Negative. 12/17/2021 [facility] Interpretation 10:34 AM CDT Comment: ----ADDITIONAL INFORMATION---- This report is intended for use in clini ada monitoring and management of patients. ??It is not intended for use i n employment-related testing. This test was developed and its performa nce characteristics determined by [facility] in a manner consistent with CLIA requirements. This test has not been cleared or approved by the U.S. Emggan d and Drug Administration. Specimen Anatomical Collection Method Collection Time Receive d Time (Source) Location / / Volume Laterality Urine (Urine, 12/15/2021 5:51 PM 12/16/19 9:55 Midstream) CDT PM CDT Adeline Frazier M.D., Ph.D. LAB URINE ORDERABLES Performing Organization Address City/State/ZIP Code Phon e Number [facility] [place] [address] [place] [address] [facility] [place] [address] Laboratory Medicine and Pathology [address] [place] [address] Dr. CHAPPELL documented in this encounter Visit Diagnoses Diagnosis Cirrhosis Alcoholic (HCC) Hypertension Portal (HCC) Alcohol Moderate Or Severe Use Disorder (Dependence) Uncomplicated (HCC) Cannabis Use Unspecified Uncomplicated Cirrhosis Alcoholic (HCC) Hypertension Portal (HCC) documented in this encounter Additional Health Concerns Assessment Noted Time PHQ-9 Depression Total Score: 10 10/06/2021 5:00 PM CD T documented as of this encounter Care Teams Operations Clerk Relationship Specialty Start Date End Date Ana Red P.A.-C. PCP - General Internal Medicine 12/01/[address] [place] [address] ADI PANIAGUA [phone] [facility]- [place] lab 08/25/21 Ervin Schroeder MD Referring Provider Family Medicine 03/24/[address] [place] [address] documented as of this encounter
--- OUTSIDE RECORDS SUMMARY | 2022-02-04 23:11 | XMS_ITS | Encounter Summary ---
:1990 Author Organization [facility] Address [address] [place] [address] Care Team Providers Name Role Phone Ana Red P.A.-C. Primary Care Provider [phone] Encounter Details Date Type Department Care Team Description 12/12/2021 Documentation [facility] [place], [place] meena Gannon for Transplantation and Mariluz Oliva, M.S.W. Clinical Regeneration in [address] [place] [address] [address] [place] [address] [place] [phone] Social History Tobacco Use Types Packs/Day Years [...] do you attend mormonism or Never 2021 mormonism services? 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 He stated he has spoken with his [...] management per Radhames Neumann, Ph.D., L.P. in [facility] (Pain Rehabilitation), 10/06/2021: - virtual [...] Type Specialty Care Team Description Hospital Radiology [place] 2 Encounter YTyrell M.D. [address] [place] [phone] Hospital Gastroenterology and [place], Matthew 2 Encounter Hepatology Tyrell Rodriguez M.D. [address] [place] [phone] Surgery Gastroenterology and [place], Matthew ESOPHAG OGASTRODUODENOSCOPY 2 Hepatology YTyrell M.D. [address] [place] [phone] Telemedicine Transplant 2 Lab Laboratory Medicine Karin, Olinda Gannon M.D., Ph.D. [address] [place] [phone] Lab Laboratory Medicine Olinda Frazier M.D., Ph.D. [address] [place] [phone] Office Visit Transplant Olinda Frazier M.D., Ph.D. [address] [place] [phone] Office Visit Community Internal [facility], 2 Medicine Vernell Perez [address] [place] [phone] Appointment Radiology Matthew Jerome 2 Y, Lilian Santillan [address] [place] [phone] Appointment Gastroenterology and Adrianne 2 Hepatology Yue Burciaga M.D. [address] [place] [phone] Office Visit Gastroenterology and Matthew Jerome 2 Hepatology Tyrell Rodriguez M.D. [address] [place] [phone] Appointment Radiology Matthew Jerome 2 Tyrell Rodriguez M.D. [facility] [place] [phone] Scheduled Procedures Name Priority Associated Diagnoses Date/Time ESOPHAGOGASTRODUODENOSCOPY Cirrhosis Alc oholic (HCC) 02/10/2022 8:45 AM CDT Hypertension Portal (HCC) documented as of this encounter Visit Diagnoses Not on filedocumented in this encounter Additional Health Concerns Assessment Noted Time PHQ-9 Depression Total Score: 10 10/06/2021 5:00 PM CD T documented as of this encounter Care Teams Nitrate Operator Relationship Specialty Start Date End Date Ana Red P.A.-C. PCP - General Internal Medicine 12/01/[address] [place] [address] [place] [phone] [facility]- [place] lab 08/25/21 Ervin Schroeder MD Referring Provider Family Medicine 03/24/[address] [place] [address] [place] [address] documented as of this encounter
--- OUTSIDE RECORDS SUMMARY | 2022-02-04 23:11 | XMS_ITS | Encounter Summary ---
:1990 Author Organization [facility] Address [address] [place] [address] Care Team Providers Name Role Phone Ana Red P.A.-C. Primary Care Provider [phone] Reason for Visit Reason Comments Abdominal Distention Encounter Details Date Type Department Care Team Description 12/04/2021 Emergency [facility] [place], Ascites (Primary Dx); Emergency Department Abdullahi Mendez M.D. Insomnia [address] [place] [address] [address] [place] [phone] (Wo rk) Social History Tobacco Use Types [...] do you attend sabianist or Never 2021 confucianism services? Do you belong to any clubs or No 07/17/2021 organizations such as sabianist groups, unions, fraPolicyGenius or athletic groups, or school groups? 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 If we can do better, please let us know that too. AttachmentsThe following attachments cannot be sent through Care Everywhere. Paracentesis Care After (Swiss)Ascites (Swiss)Trazodone Tablets (Swiss) documented in this encounter Medications at Time [...] for sleep for up to 10 doses. lidocaine (LIDODERM) 5 Place 1 patch on [...] Paracentesis Date/Time: 12/04/2021 9:57 AM Performed by: Blaqnuita Dawn M.D. Authorized by: Abdullahi Zuniga M.D. [...] or amended. ED Course as of 12/09/212136 Luz Marina Dec 04, 2021 0843 LFTs [...] in the past. History provided by: Patient pipe buffer needed/used: no REVIEW OF SYSTEMS Constitutional: Negative [...] 0443 -- 12/04/21 0443 12/04/21 0443 12/04/21 0443 36.6 ??C 85 [...] Type Specialty Care Team Description Hospital Radiology [facility] 2 Encounter Tyrell Rodriguez M.D. [address] [place] [phone] [facility] Gastroenterology and [facility] 2 Encounter Hepatology Tyrell Rodriguez M.D. [address] [place] [phone] Surgery Gastroenterology and [facility] ESOPHAG OGASTRODUODENOSCOPY 2 Hepatology Tyrell Rodriguez M.D. [address] [place] [phone] Telemedicine Transplant 2 Lab Laboratory Medicine Karin, 2 Adeline Gannon M.D., Ph.D. [address] [place] [phone] Lab Laboratory Medicine Olinda Frazier M.D., Ph.D. [address] [place] [phone] Office Visit Transplant Olinda Frazier M.D., Ph.D. [address] [place] [phone] Office Visit [facility] Internal [facility], 2 Medicine Vernell Perez [address] [place] [phone] Appointment Radiology Matthew Jerome 2 YVikBSumaSLilian Moise [address] [place] [phone] Appointment Gastroenterology and Adrianne 2 Hepatology Yue Burciaga M.D. [address] [place] [phone] Office Visit Gastroenterology and Matthew Jerome 2 Hepatology Joshua RodriguezBSumaB.SLilian Moise [address] [place] [phone] Appointment Radiology Matthew Jerome 2 YVikB.SLilian Moise [address] [place] [phone] Scheduled Procedures Name Priority Associated Diagnoses Date/Time [...] Address City/State/ZIP Code Phon e Number [facility] - [address] [place], [place] [address] [place] [address] [facility] [address] hCG (Human Chorionic Gonadotropin), Quantitative, (12/04/2021 7:30 AM CDT) athologist Signature HCG, <0.5 <5 IU/L 12/04/2021 [facility], 7:51 AM CDT , P Specimen Anatomical Collection Method Collection Time Receive d Time (Source) Location / / Volume Laterality Blood (Blood, 12/04/2021 7:30 AM 12/05/19 7:34 Venous) CDT AM CDT Sree Goodman M.D., M.A. LAB BLOOD ADD-ON Performing Organization Address City/[facility] Phon e Number [facility] - 200 [place], [place] [address] [place] [address] [address] (ABNORMAL) Prothrombin Time (PT) (12/04/2021 7:30 AM CDT) Patholo gist Method Time Signature Prothrombin 31.1 (H) 9.4 - 12.5 12/04/2021 [facility] Time, P sec 7:44 AM CDT INR 2.8 0.9 - 1.1 12/04/2021 [facility] 7:44 AM CDT Comment: ----ADDITIONAL INFORMATION---- Standard intensity warfarin therapeutic range: 2.0 to 3.0 ?? High intensity warfarin therapeutic rang e: 2.5 to 3.5 Specimen Anatomical Collection Method Collection Time Receive d Time (Source) Location / / Volume Laterality Blood (Blood, 12/04/2021 7:30 AM 12/05/19 22 7:34 Venous) CDT AM CDT Sree Goodman M.D., M.A. LAB BLOOD ADD-ON Performing Organization Address City/[facility] Code Phon e Number [facility] - [address] [place] [address] [address] [place] [address] [address] Lipase (12/04/2021 7:30 AM CDT) P athologist Signature Lipase, S 44 13 - 60 U/L 12/04/2021 8:30 DTL AM CDT Specimen Anatomical Collection Method Collection Time Receive d Time (Source) Location / / Volume Laterality Blood (Blood, 12/04/2021 7:30 AM 12/05/19 22 8:04 Venous) CDT AM CDT Sree Goodman M.D., M.A. LAB BLOOD ADD-ON Performing Organization Address [facility] Phon e Number [facility] - [address] [place], [place] [address] [place] [address] [address] (ABNORMAL) Hepatic Function Panel (12/04/2021 7:30 AM CDT) [facility] Campanja Method Time Signature Bilirubin, Total, S 13.1 [...] M.A. LAB BLOOD ADD-ON Performing Organization Address City/[facility] Phon e Number [facility] - [address] [place], [place] [address] [place] [address] (ABNORMAL) CBC with Differential, Blood (12/04/2021 7:30 AM CDT) [facility] Camp[facility]ja Method Time Signature Hemoglobin 8.0 (L) 11.6 [...] Address City/State/ZIP Code Phon e Number [facility] - [address] [place], [place] [address] [place] [address] [facility] [address] (ABNORMAL) Basic Metabolic [...] CDT eGFR-Black/Afri >90 >=60 12/04/2021 DTL can [place] mL/min/BSA 8:53 AM CDT Comment: ----ADDITIONAL INFORMATION---- [...] Address City/State/ZIP Code Phon e Number [facility] - [address] [place], [place] [address] [place] [address] [facility] [address] [place] [address] [facility] [address] (ABNORMAL) Blood Gas with Coox, Venous (12/04/2021 7:30 AM CDT) [facility] gist Method Time Signature Venous pO2 36 [...] 7:38 AM CDT Venous Sample Venipunct 12/04/2021 [facility] 7:38 AM CDT Specimen Anatomical Collection Method Collection Time Receive d Time (Source) Location / / Volume Laterality Blood (Blood, 12/04/2021 7:30 AM 12/05/19 7:34 Venous) CDT AM CDT Sree Goodman M.D., M.A. LAB BLOOD NON ADD-ON Performing Organization Address City/State/ZIP Code Phon e Number [facility] - [address] [place], [place] [address] [place] [address] [facility] [address] documented in this [...] (COMPLETED) 0946 (Given - Provider: Juan Moise RSumaNSuma - Comment: pulled at provider request prior to parasynthesis) Starting on Luz Marina 12/04/21 at 0910, For 1 dose, Created by marii elizondo documented in this encounter Additional Health Concerns Assessment Noted Time PHQ-9 Depression Total Score: 10 10/06/2021 5:00 PM CD T documented as of this encounter Care Teams Nursery Technician Relationship Specialty Start Date End Date Ana Red P.A.-C. PCP - General Internal Medicine 12/01/[address] [place], [place] [address] [phone]- [facility] 08/25/21 Ervin Schroeder MD Referring Provider Family Medicine 03/24/[address] [facility] [place] [address] documented as of this encounter
--- OUTSIDE RECORDS SUMMARY | 2022-02-04 23:11 | XMS_ITS | Encounter Summary ---
:1990 Author Organization [facility] Address [address] [place] [address] Care Team Providers Name Role Phone Ana Red P.A.-C. Primary Care Provider [phone] Encounter Details Date Type Department Care Team Description 12/04/2021 Clinical Communication Division of Jethro, Gastroenterology in [place] Echevarria [place], [place] [address] [facility] [address] [place] [phone] Social History Tobacco Use Types Packs/Day Years [...] do you attend mandaeism or Never 2021 evangelical services? Do you belong to any clubs or No 07/17/2021 organizations such as mandaeism groups, unions, fraConfetti Games or athletic groups, or school groups? 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 [address] [place] [phone] Hospital Gastroenterology and Matthew Jerome 2 Encounter Hepatology Tyrell Rodriguez M.D. [address] [place] [phone] Surgery Gastroenterology and Matthew Jerome ESOPHAG OGASTRODUODENOSCOPY 2 Hepatology Tyrell Rodriguez M.D. [address] [place] [phone] Telemedicine Transplant 2 Lab Laboratory Medicine Karin, 2 Adeline Gannon M.D., Ph.D. [address] [place] [phone] Lab Laboratory Medicine Karin, 2 Adleine Gannon M.D., Ph.D. [address] [place] [phone] Office Visit Transplant Karin, 2 Adeline Gannon M.D., Ph.D. [address] [place] [phone] Office Visit Community Internal [place], 2 Medicine Carlotta PerezCSuma [address] [place] [phone] Appointment Radiology Matthew Jerome 2 Y MSumaBSumaBLilina Bedolla [address] [place] [phone] Appointment Gastroenterology and Adrianne, 2 Hepatology Yue Burciaga M.D. [address] [place] [phone] Office Visit Gastroenterology and Matthew Jerome 2 Hepatology Joshua RodriguezBSumaBLilian Bedolla [address] [place] [phone] Appointment Radiology Matthew Jerome 2 Y M.B.Lilian Salas [address] [place] [phone] Scheduled Procedures Name Priority Associated Diagnoses Date/Time ESOPHAGOGASTRODUODENOSCOPY Cirrhosis Alc oholic (HCC) 02/10/2022 8:45 AM CDT Hypertension Portal (HCC) documented as of this encounter Visit Diagnoses Diagnosis Ascites - Primary Cirrhosis Alcoholic (HCC) Hypertension Portal (HCC) documented in this encounter Additional Health Concerns Assessment Noted Time PHQ-9 Depression Total Score: 10/06/2021 5:00 PM CD T documented as of this encounter Care Teams Nurse Unit Manager Relationship Specialty Start Date End Date Ana Red P.A.-C. PCP - General Internal Medicine 12/01/[address] [place] [phone] [facility] 08/25/21 Ervin Schroeder MD Referring Provider Family Medicine 03/24/[address] [place] [address] documented as of this encounter
--- OUTSIDE RECORDS SUMMARY | 2022-02-04 23:11 | XMS_ITS | Encounter Summary ---
:1990 Author Organization [facility] Address [address] [place] [address] Care Team Providers Name Role Phone Ana Red P.A.-C. Primary Care Provider [phone] Encounter Details Date Type Department Care Team Description 12/18/2021 Orders Only Department of Mousa, Matthew Y, Mood Disorde r (HCC) (Primary Dx); Gastroenterology in [place].Joshua Hudson Anxiety Disorder Unspecified [place], [place] [address] [facility] [address] [place] [phone] [phone] Social History Tobacco Use Types Packs/Day Years [...] you attend latter day or Never 2021 methodist services? Do you belong to any clubs or No 07/17/2021 organizations such as latter day groups, unions, fraQuantuModeling or athletic groups, or school groups? 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 [address] [place] [phone] Telemedicine Transplant 2 Lab Laboratory Medicine Karin, 2 Adeline Gannon M.D., Ph.D. [address] [place] [phone] Lab Laboratory Medicine Karin, 2 Adeline Gannon M.D., Ph.D. [address] [place] [phone] Office Visit Transplant Karin, 2 Adeline Gannon M.D., Ph.D. [address] [place] [phone] Office Visit Community Internal [place], 2 Medicine Vernell Perez [address] [place] [phone] Appointment Radiology Matthew Jerome 2 Joshua RodriguezBSumaBLilian Bedolla [address] [place] [phone] Appointment Gastroenterology and Adrianne, 2 Hepatology Yue Burciaga M.D. [address] [place] [phone] Office Visit Gastroenterology and Queenie, Matthew 2 Hepatology Joshua RodriguezBSumaBLilian Bedolla [address] [place] [phone] Appointment Radiology Matthew Jerome 2 YTyrell M.D. [address] [place] [phone] Scheduled Procedures Name Priority Associated Diagnoses [...] documented as of this encounter Care Teams Insole Channeler Relationship Specialty Start Date End Date Ana Red P.A.-C. PCP - General Internal Medicine 12/01/[address] [place] [phone] [facility]- [place] lab 08/25/21 Ervin Schroeder MD Referring Provider Family Medicine 03/24/[address] [place] [address] [phone] documented as of this encounter
--- OUTSIDE RECORDS SUMMARY | 2022-02-04 23:11 | XMS_ITS | Encounter Summary ---
:1990 Author Organization [facility] Address [address] [place] [address] Care Team Providers Name Role Phone Ana Red PSumaA.-C. Primary Care Provider Reason for Visit Reason Comments Disability Parking Certificate Encounter Details Date Type Department Care Team Description 12/11/2021 Clinical Communication Department of Sherry Red [facility] Internal Ana, Certifica Medicine in P.A.-C. [place], [address] [facility] [address] [facility] [address] [place] [phone] (Work) [phone] Social History Tobacco Use Types Packs/Day Years [...] do you attend alevism or Never 2021 mosque services? Do you belong to any clubs or No 07/17/2021 organizations such as alevism groups, unions, fraTopiVert or athletic groups, or school groups? 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 - 12/11/2021 9:16 AM CDT Disability Parking Certificate form request received. Please mail to patient after provider has signed. documented in this encounter Plan of Treatment Upcoming Encounters Date Type Specialty Care Team Description [facility] Radiology Luis[place], Matthew 2 Encounter Tyrell Rodriguez, M.Jeri [address] [place] [phone] Hospital Gastroenterology and Luischantell Matthew 2 Encounter Hepatology Tyrell Rodriguez, Lilian [address] [place] [phone] Surgery Gastroenterology and [facility] Matthew ESOPHAG OGASTRODUODENOSCOPY 2 Hepatology Tyrell Rodriguez, Lilian [address] [place] [phone] Telemedicine Transplant 2 Lab Laboratory Medicine Karin, 2 Adeline Gannon M.D., Ph.D. [address] [place] [phone] Lab Laboratory Medicine Karin, 2 Adeline Gannon M.D., Ph.D. [address] [place] [phone] Office Visit Transplant Karin, 2 Adeline Gannon M.D., Ph.D. [address] [place] [phone] Office Visit Community Internal [facility], 2 Medicine Carlotta PerezC. [address] [place] [phone] Appointment Radiology Luischantell Matthew 2 Tyrell Rodriguez, Lilian [address] [place] [phone] Appointment Gastroenterology and Adrianne, 2 Hepatology Yue Burciaga M.D. [address] [place] [phone] Office Visit Gastroenterology and Matthew Jerome 2 Hepatology Tyrell Rodriguez M.D. 10[address] [place] [phone] Appointment Radiology QueenieMatthew 2 Tyrell Rodriguez M.D. [address] [place] [phone] Scheduled Procedures Name Priority Associated Diagnoses Date/Time ESOPHAGOGASTRODUODENOSCOPY Cirrhosis Alc oholic (HCC) 02/10/2022 8:45 AM CDT Hypertension Portal (HCC) documented as of this encounter Visit Diagnoses Not on filedocumented in this encounter Additional Health Concerns Assessment Noted Time PHQ-9 Depression Total Score: 10/06/2021 5:00 PM CD T documented as of this encounter Care Teams Surplus Property Disposal Agent Relationship Specialty Start Date End Date Ana Red P.A.-C. PCP - General Internal Medicine 12/01/[address] [place] [phone] [facility]- [place] lab 08/25/21 Ervin Schroeder MD Referring Provider Family Medicine 03/24/[address] [place] [phone] documented as of this encounter
--- OUTSIDE RECORDS SUMMARY | 2022-02-04 23:11 | XMS_ITS | Encounter Summary ---
:1990 Author Organization [facility] Address [address] [place] [address] Care Team Providers Name Role Phone Ana Red P.A.-C. Primary Care Provider [phone] Reason for Visit Reason Comments Back Pain Encounter Details Date Type Department Care Team Description 12/19/2021 Nurse Triage Department of Replaced By [facility] Ben Sun , Back Pain Internal Medicine in [place], [place] [address] [facility] [address] [place], [place] [phone] [phone] Social History Tobacco Use Types Packs/Day Years [...] do you attend religious or Never 2021 rastafarian services? 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 - 12/19/2021 9:54 PM CDT Chief Complaint [...] hours after pain medicine Protocols used: Back Zusp-ZATHO-CT Care Advice Patient/Caregiver understands and will follow care advice?: Yes, able to teach back SEE HCP (OR PCP TRIAGE) WITHIN 4 HOURS: * IF OFFICE WILL BE OPEN: You need to be seen within the next 3 or 4 hours. Call your doctor (or KNITTED GARMENT FINISHER/PA) now or as soon as the office [...] need to be seen. Your doctor (or KNITTED GARMENT FINISHER/PA) will want to talk with you to [...] and injuries). The triager must know the C capabilities before sending a patient there. If unsure, call ahead. * OFFICE: If patient sounds stable and not seriously ill, consult PCP (or follow your office policy)to see if patient can be seen NOW in office. PAIN MEDICINES: * For pain relief, you can take either acetaminophen, ibuprofen, or naproxen. * They are hxwd-jwb-pmkaluv (OTC) pain drugs. You can buy them [...] Type Specialty Care Team Description Hospital Radiology [facility] 2 Encounter Tyrell Rodriguez M.D. [address] [place] [phone] [facility] Gastroenterology and [facility] 2 Encounter Hepatology Tyrell Rodriguez M.D. [address] [place] [phone] Surgery Gastroenterology and [facility] ESOPHAG OGASTRODUODENOSCOPY 2 Hepatology Tyrell Rodriguez M.D. [address] [place] [phone] Telemedicine Transplant 2 Lab Laboratory Medicine Karin, 2 Adeline Gannon M.D., Ph.D. [address] [place] [phone] Lab Laboratory Medicine Olinda Frazier M.D., Ph.D. [address] [place] [phone] Office Visit Transplant Karin, Olinda Gannon M.D., Ph.D. [address] [place] [phone] Office Visit Community Internal [facility], 2 Medicine Vernell Perez [address] [place] [phone] Appointment Radiology Matthew Jerome 2 YTyrell M.D. [address] [place] [phone] Appointment Gastroenterology and Adrianne, 2 Hepatology Yue Burciaga M.D. [address] [place] [phone] Office Visit Gastroenterology and Matthew Jerome 2 Hepatology Vik RodriguezBLilian Bedolla [address] [place] [phone] Appointment Radiology Matthew Jerome 2 YVikB.SLilian Moise [address] [place] [phone] Scheduled Procedures Name Priority Associated Diagnoses Date/Time ESOPHAGOGASTRODUODENOSCOPY Cirrhosis Alc oholic (HCC) 02/10/2022 8:45 AM CDT Hypertension Portal (HCC) documented as of this encounter Visit Diagnoses Not on filedocumented in this encounter Additional Health Concerns Assessment Noted Time PHQ-9 Depression Total Score: 10 10/06/2021 5:00 PM CD T documented as of this encounter Care Teams Medical Territory Manager Relationship Specialty Start Date End Date Ana Red P.A.-C. PCP - General Internal Medicine 12/01/[address] [place] [phone] [facility]- [place] lab 08/25/21 Ervin Schroeder MD Referring Provider Family Medicine 03/24/[address] [place] [phone] documented as of this encounter
--- OUTSIDE RECORDS SUMMARY | 2022-02-04 23:11 | XMS_ITS | Encounter Summary ---
:1990 Author Organization [facility] Address [address] [place] [address] Care Team Providers Name Role Phone Ana Red P.A.-C. Primary Care Provider [phone] Encounter Details Date Type Department Care Team Description 12/04/2021 Clinical Communication Division of Jethro, Gastroenterology in Elizabeth Echevarria [place], [place] [address] [facility] [address] [place] [phone] [phone] Social History Tobacco Use Types Packs/Day Years [...] do you attend islam or Never 2021 taoism services? Do you belong to any clubs or No 07/17/2021 organizations such as islam groups, unions, [id number] or athletic groups, or school groups? 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 [address] [place] [phone] Hospital Gastroenterology and Matthew Jerome 2 Encounter Hepatology Tyrell Rodriguez M.D. [address] [place] [phone] Surgery Gastroenterology and Matthew Jerome ESOPHAG OGASTRODUODENOSCOPY 2 Hepatology Tyrell Rodriguez M.D. [address] [place] [phone] Telemedicine Transplant 2 Lab Laboratory Medicine Karin, 2 Adeline Gannon M.D., Ph.D. [address] [place] [phone] Lab Laboratory Medicine Karin, 2 Adeline Gannon M.D., Ph.D. [address] [place] [phone] Office Visit Transplant Karin, 2 Adeline Gannon M.D., Ph.D. [address] [place] [phone] Office Visit Community Internal Deanovic, 2 Medicine Carlotta PerezCSuma [address] [place] [phone] Appointment Radiology Matthew Jerome 2 Y MSumaBSumaBLilian Bedolla [address] [place] [phone] Appointment Gastroenterology and Adrianne, 2 Hepatology Yue Burciaga M.D. [address] [place] [phone] Office Visit Gastroenterology and Matthew Jerome 2 Hepatology Joshua RodriguezBSumaBLilian Bedolla [address] [place] [phone] Appointment Radiology Matthew Jerome 2 Y M.B.Lilian Salas [address] [place] [address] Scheduled Procedures Name Priority Associated Diagnoses Date/Time ESOPHAGOGASTRODUODENOSCOPY Cirrhosis Alc oholic (HCC) 02/10/2022 8:45 AM CDT Hypertension Portal (HCC) documented as of this encounter Visit Diagnoses Diagnosis Ascites - Primary Cirrhosis Alcoholic (HCC) Hypertension Portal (HCC) documented in this encounter Additional Health Concerns Assessment Noted Time PHQ-9 Depression Total Score: 10/06/2021 5:00 PM CD T documented as of this encounter Care Teams Director Physical Therapy Relationship Specialty Start Date End Date Ana Red P.A.-C. PCP - General Internal Medicine 12/01/[address] [place] [phone] [facility] [place] lab 08/25/21 Ervin Schroeder MD Referring Provider Family Medicine 03/24/[address] [place] [address] documented as of this encounter
--- OUTSIDE RECORDS SUMMARY | 2022-02-04 23:11 | XMS_ITS | Encounter Summary ---
:1990 Author Organization [facility] Address [address] [place] [address] Care Team Providers Name Role Phone Ana Red P.A.-C. Primary Care Provider Reason for Visit Reason Comments Ascites Shortness of Breath Encounter Details Date Type Department Care Team Description 12/21/2021 Emergency [facility] Katrin Gonzalez M.D., Ph.D. [address] [place] [phone] Ascites (Primary Dx) Emergency Department Clifton Liu M.D. [address] [place] [phone] [address] [place] [phone] Social History Tobacco Use Types [...] do you attend sikhism or Never 2021 jain services? 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 - 12/21/2021 7:17 AM CDT Please [...] Care for this patient was transferred to al at shift change. Please see associated documentation [...] she needs to follow up with her sock knitter to schedule the outpatient. DIFFERENTIAL DIAGNOSIS Liver [...] Specialty Care Team Description [facility] Radiology [facility] Matthew 2 Encounter Tyrell Rodriguez M.D. [address] [place] [phone] [facility] Gastroenterology and Kychantell Matthew 2 Encounter Hepatology Tyrell Rodriguez M.D. [address] [place] [address] Surgery Gastroenterology and Queenie Matthew ESOPHAG OGASTRODUODENOSCOPY 2 Hepatology Tyrell Rodriguez M.D. [address] [place] [address] Telemedicine Transplant 2 Lab Laboratory Medicine Karin, 2 Adeline Gannon M.D., Ph.D. [address] [place] [phone] Lab Laboratory Medicine Karin, 2 Adeline Gannon M.D., Ph.D. [address] [place] [phone] Office Visit Transplant Karin, 2 Adeline Gannon M.D., Ph.D. [address] [place] [phone] Office Visit Community Internal Deanovic, 2 Medicine Carlotta PerezCSuma [address] [place] [phone] Appointment Radiology Matthew Jerome 2 Joshua RodriguezBSumaBLilian Bedolla [address] [place] [address] Appointment Gastroenterology and Adrianne, 2 Hepatology Yue Burciaga M.D. [address] [place] [phone] Office Visit Gastroenterology and Queenie Matthew 2 Hepatology Joshua RodriguezBSumaBLilian Bedolla [address] [place] [phone] Appointment Radiology QueenieMatthew 2 YTyrell M.D. [address] [place] [phone] Scheduled Procedures Name Priority Associated Diagnoses [...] human 25 % injection 25 g (COMPLETED) 5038 (New Bag - Provider: Fadumo C Christianson, R.N.)0830 (Stopped - Provider: Daniel Ross R.N., CPEN) [...] (COMPLETED) 0554 (Given - Provider: Nataliia Granados R.N.) 0.5 mg, oral, Once, On 12/21/21 at 0549, For 1 dose documented in this encounter Additional Health Concerns Assessment Noted Time PHQ-9 Depression Total Score: 10 10/06/2021 5:00 PM CD T documented as of this encounter Care Teams Licensed Physical Therapist Relationship Specialty Start Date End Date Ana Red P.A.-C. PCP - General Internal Medicine 12/01/[address] [place] [address] ADI PANIAGUA [phone] [facility]- [place] lab 08/25/21 Ervin Schroeder MD Referring Provider Family Medicine 03/24/[address] [place] [address] [place] [address] documented as of this encounter
--- OUTSIDE RECORDS SUMMARY | 2022-02-04 23:11 | XMS_ITS | Encounter Summary ---
:1990 Author Organization [facility] Address [address] [place] [address] Care Team Providers Name Role Phone Ana Red P.A.-C. Primary Care Provider [phone] Reason for Visit Reason Comments Phone Contact Appointment LABS Encounter Details Date Type Department Care Team Description 12/11/2021 Clinical Ramirez Barajas, Phone Contact; Communication Center for [facility] (Jagdeep HERRON) Transplantation and Lilian, Ph.D. Clinical [facility] [address] [place] [address] [address] [facility] [place] [phone] Social History Tobacco Use Types Packs/Day Years [...] do you attend episcopalian or Never 2021 shinto services? Do you belong to any clubs or No 07/17/2021 organizations such as episcopalian groups, unions, [employer] or athletic groups, or school groups? 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 [address] [place] [phone] Hospital Gastroenterology and Queenie, Matthew 2 Encounter Hepatology YTyrell M.D. [address] [place] [phone] Surgery Gastroenterology and [facility], Matthew ESOPHAG OGASTRODUODENOSCOPY 2 Hepatology YTyrell M.D. [address] [place] [phone] Telemedicine Transplant 2 Lab Laboratory Medicine Karin, Olinda Gannon M.D., Ph.D. [address] [place] [phone] Lab Laboratory Medicine Olinda Frazier M.D., Ph.D. [address] [place] [phone] Office Visit Transplant Olinda Frazier M.D., Ph.D. [address] [place] [phone] Office Visit Community Internal [facility], 2 Medicine Vernell Perez [address] [place] [phone] Appointment Radiology Matthew Jerome 2 Y, Lilian Santillan [address] [place] [phone] Appointment Gastroenterology and Adrianne 2 Hepatology Yue Burciaga M.D. [address] [place] [address] Office Visit Gastroenterology and Matthew Jerome 2 Hepatology Joshua RodriguezBSumaBLilian Bedolla [address] [place] [phone] Appointment Radiology Matthew Jerome 2 Tyrell Rodriguez, Lilian [address] [place] [phone] Scheduled Procedures Name Priority Associated Diagnoses Date/Time ESOPHAGOGASTRODUODENOSCOPY Cirrhosis Alc oholic (HCC) 02/10/2022 8:45 AM CDT Hypertension Portal (HCC) documented as of this encounter Visit Diagnoses Not on filedocumented in this encounter Additional Health Concerns Assessment Noted Time PHQ-9 Depression Total Score: 10 10/06/2021 5:00 PM CD T documented as of this encounter Care Teams Tumbler Plater Relationship Specialty Start Date End Date Ana Red P.A.-C. PCP - General Internal Medicine 12/01/[address] [place] [phone] [facility]- [place] lab 08/25/21 Ervin Schroeder MD Referring Provider Family Medicine 03/24/[address] [place] [address] documented as of this encounter
--- OUTSIDE RECORDS SUMMARY | 2022-02-04 23:12 | XMS_ITS | Encounter Summary ---
:1990 Author Organization [facility] Address [address] [place] [address] Care Team Providers Name Role Phone Ana Red P.A.-C. Primary Care Provider [phone] Encounter Details Date Type Department Care Team Description 12/04/2021 Clinical Communication Division of Jethro, Gastroenterology in Elizabeth Echevarria [place], [place] [address] [facility] [address] [place] [phone] Social History Tobacco Use Types Packs/Day Years [...] do you attend samaritan or Never 2021 moravian services? Do you belong to any clubs or No 07/17/2021 organizations such as samaritan groups, unions, fra[employer] or athletic groups, or school groups? 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 [address] [place] [phone] Hospital Gastroenterology and Matthew Jerome 2 Encounter Hepatology Tyrell Rodriguez M.D. [address] [place] [phone] Surgery Gastroenterology and Matthew Jerome ESOPHAG OGASTRODUODENOSCOPY 2 Hepatology Tyrell Rodriguez M.D. [address] [place] [phone] Telemedicine Transplant 2 Lab Laboratory Medicine Karin, 2 Adeline Gannon M.D., Ph.D. [address] [place] [phone] Lab Laboratory Medicine Karin, 2 Adeline Gannon M.D., Ph.D. [address] [place] [phone] Office Visit Transplant Karin, 2 Adeline Gannon M.D., Ph.D. [address] [place] [phone] Office Visit Community Internal [facility]ovic, 2 Medicine Carlotta PerezCSuma [address] [place] [phone] Appointment Radiology Matthew Jerome 2 Y MSumaBSumaBLilian Bedolla [address] [place] [phone] Appointment Gastroenterology and Adrianne, 2 Hepatology Yue Burciaga M.D. [address] [place] [phone] Office Visit Gastroenterology and Matthew Jerome 2 Hepatology Joshua RodriguezBSumaBLilian Bedolla [address] [place] [phone] Appointment Radiology Matthew Jerome 2 Y M.B.Lilian Salas [address] [place] [address] Scheduled Procedures Name Priority Associated Diagnoses Date/Time ESOPHAGOGASTRODUODENOSCOPY Cirrhosis Alc oholic (HCC) 02/10/2022 8:45 AM CDT Hypertension Portal (HCC) documented as of this encounter Visit Diagnoses Not on filedocumented in this encounter Additional Health Concerns Assessment Noted Time PHQ-9 Depression Total Score: 10/06/2021 5:00 PM CD T documented as of this encounter Care Teams Divider Operator Relationship Specialty Start Date End Date Ana Red P.A.-C. PCP - General Internal Medicine 12/01/[address] [place] [phone] [facility]- [place] lab 08/25/21 Ervin Schroeder MD Referring Provider Family Medicine 03/24/[address] [place] [address] documented as of this encounter
--- OUTSIDE RECORDS SUMMARY | 2022-02-04 23:12 | XMS_ITS | Encounter Summary ---
:1990 Author Organization [facility] Address [address] [place] [address] Care Team Providers Name Role Phone Ana Red P.A.-C. Primary Care Provider [phone] Encounter Details Date Type Department Care Team Description 11/26/2021 Clinical [facility], Gastroenterology in M.BJhoan, Joshua Kru[address] [place] [phone] Social History Tobacco Use Types Packs/Day Years [...] or relatives? How often do you attend jehovah's witness or Never 2021 mandaen services? Do you belong to any clubs or No 07/17/2021 organizations such as jehovah's witness groups, unions, [employer] or athletic groups, or school groups? 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 [address] [place] [phone] Hospital Gastroenterology and Mousa, Matthew 2 Encounter Hepatology Tyrell Rodriguez M.D. [address] [place] [phone] Surgery Gastroenterology and Mousa, Matthew ESOPHAG OGASTRODUODENOSCOPY 2 Hepatology Tyrell Rodriguez, Lilian [address] [place] [phone] Telemedicine Transplant 2 Lab Laboratory Medicine Olinda Frazier M.D., Ph.D. [address] [place] [phone] Lab Laboratory Medicine Karin 2 Adeline Gannon M.D., Ph.D. [address] [place] [phone] Office Visit Transplant Karin, Olinda Gannon M.D., Ph.D. [address] [place] [phone] Office Visit Community Internal [facility], 2 Medicine Vernell Perez [address] [place] [phone] Appointment Radiology Matthew Jerome 2 Y M.B.B.SSuma, Lilian [address] [place] [phone] Appointment Gastroenterology and Adrianne, 2 Hepatology Yue Burciaga M.D. [address] [place] [phone] Office Visit Gastroenterology and Matthew Jerome 2 Hepatology Elizabeth Rodriguez.B.B.SLilian Moise [address] [place] [phone] Appointment Radiology Matthew Jerome 2 Y M.B.B.SLilian Moise [address] [place] [phone] Scheduled Procedures Name Priority Associated Diagnoses Date/Time ESOPHAGOGASTRODUODENOSCOPY Cirrhosis Alc oholic (HCC) 02/10/2022 8:45 AM CDT Hypertension Portal (HCC) documented as of this encounter Visit Diagnoses Not on filedocumented in this encounter Additional Health Concerns Assessment Noted Time PHQ-9 Depression Total Score: 10/06/2021 5:00 PM CD T documented as of this encounter Care Teams Boarder Machine Relationship Specialty Start Date End Date Ana Red P.A.-C. PCP - General Internal Medicine 12/01/[address] [place] [phone] [facility]- [place] lab 08/25/21 Ervin Schroeder MD Referring Provider Family Medicine 03/24/[address] [place] [address] documented as of this encounter
--- OUTSIDE RECORDS SUMMARY | 2022-02-04 23:12 | XMS_ITS | Encounter Summary ---
:1990 Author Organization [facility] Address [address] [place] [address] Care Team Providers Name Role Phone Ana Red P.A.-C. Primary Care Provider Encounter Details Date Type Department Care Team Description 12/02/2021 Clinical Communication Department of Internal [facility] in [facility] [address] [place] [phone] Social History Tobacco Use Types Packs/Day Years [...] do you attend alevism or Never 2021 yazdanism services? Do you belong to any clubs or No 07/17/2021 organizations such as alevism groups, unions, fraRemotemedical or athletic groups, or school groups? 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 Telephone Encounter - Sunny Arnold D.O. - 12/03/2021 10:06 AM CDT Please schedule at the 1st available facility, the patient does have transportation. Please call andoffer the 1st available appointment in the region. Electronically signed by: Sunny Arnold D.O. 12/03/21 10:06 AM CDT Telephone Encounter - Lia Lund - 12/02/2021 2:34 PM CDT We are out to the for our Ultrasounds and this particular one is a 90 min doppler. Please advise as we may need to seek another facility. Thank you documented in this encounter Plan of Treatment Upcoming Encounters Date Type Specialty Care Team Description Hospital Radiology [facility] 2 Encounter Tyrell Rodriguez, Lilian [address] [place] [phone] Hospital Gastroenterology and [facility] 2 Encounter Hepatology Tyrell Rodriguez, Lilian [address] [place] [phone] Surgery Gastroenterology and [facility] ESOPHAG OGASTRODUODENOSCOPY 2 Hepatology Tyrell Rodriguez, Lilian [address] [place] [address] [phone] Telemedicine Transplant 2 Lab Laboratory Medicine Olinda Frazier M.D., Ph.D. [address] [place] [phone] Lab Laboratory Medicine Olinda Frazier M.D., Ph.D. [address] [place] [phone] Office Visit Transplant Olinda Frazier, M.D., Ph.D. [address] [place] [phone] Office Visit Community Internal Olinda Red Medicine Vernell Perez 300 [facility] [address] Appointment Radiology Matthew Jerome 2 Y, M.B.B.SSuma, M.DSuma [address] [place] [phone] Appointment Gastroenterology and Adrianne 2 Hepatology Yue Burciaga M.D. [address] [place] [phone] Office Visit Gastroenterology and Matthew Jerome 2 Hepatology Jennifer M.B.B.S., M.DSuma [address] [place] [phone] Appointment Radiology Matthew Jerome 2 Y M.B.B.SSuma, MJules [address] [place] [phone] Scheduled Procedures Name Priority Associated Diagnoses Date/Time ESOPHAGOGASTRODUODENOSCOPY Cirrhosis Alc oholic (HCC) 02/10/2022 8:45 AM CDT Hypertension Portal (HCC) documented as of this encounter Visit Diagnoses Not on filedocumented in this encounter Additional Health Concerns Assessment Noted Time PHQ-9 Depression Total Score: 10/06/2021 5:00 PM CD T documented as of this encounter Care Teams Print Support Specialist Relationship Specialty Start Date End Date Ana Red P.A.-C. PCP - General Internal Medicine 12/01/21 [address] [facility] [place] [phone] [facility]- [place] lab 08/25/21 Ervin Schroeder MD Referring Provider Family Medicine 03/24/[address] [place] [address] documented as of this encounter
--- OUTSIDE RECORDS SUMMARY | 2022-02-04 23:12 | XMS_ITS | Encounter Summary ---
:1990 Author Organization [facility] Address [address] [place] [address] Care Team Providers Name Role Phone Ana Red P.A.-C. Primary Care Provider [phone] Encounter Details Date Type Department Care Team Description 12/02/2021 Hospital Encounter Department of [facility] Cirrhosi s Alcoholic (HCC); Laboratory Medicine Y, M.B.B.S., Hyperten neptali Portal (HCC); in Lilian [place] Thrombocytopenia (HCC); [place] [id number] [facility] Abnormal Liver Function Test; [address] [place], [place] Change Mental Status ADI PANIAGUA [phone] Social History Tobacco Use Types Packs/Day Years [...] do you attend rastafarian or Never 2021 yazidism services? 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 [address] [place] [phone] Lab Laboratory Medicine Karin, 2 Adeline Gannon M.D., Ph.D. [address] [place] [phone] Office Visit Transplant Karin, 2 Adeline Gannon M.D., Ph.D. [address] [place] [phone] Office Visit [facility], 2 Solitario Perez P.A.-C. [address] [place] [phone] Appointment Radiology Queenie Matthew 2 YVikBGraeme, Lilian [address] [place] [phone] Appointment Gastroenterology and Adrianne, 2 Hepatology Yue Burciaga M.D. [address] [place] [phone] Office Visit Gastroenterology and Matthew Jerome 2 Hepatology Tyrell Rodriguez M.D. [address] [place] [phone] Appointment Radiology Queenie Matthew 2 YTyrell M.D. [address] [place] [phone] Scheduled Procedures Name Priority Associated [...] CDT eGFR-Black/Afri >90 >=60 12/02/2021 [place] can Belarusian mL/min/BSA 6:46 PM CDT Comment: ----ADDITIONAL INFORMATION---- [...] Organization Address City/State/ZIP Code Phon e Number [facility]- [address] [place] [address] [place] [address] System in [place] [address] (ABNORMAL) Bilirubin, Total (12/02/2021 4:14 PM CDT) P athologist Signature Bilirubin, 11.8 (H) <=1.2 12/02/2021 [place] Total, P mg/dL 6:46 PM CDT Specimen Anatomical Collection Method Collection Time Receive d Time (Source) Location / / Volume Laterality Blood (Blood, 12/02/2021 4:14 PM 12/03/19 22 6:28 Venous) CDT PM CDT Matthew Santillan M.D. LAB BLOOD ADD-ON Performing Organization Address City/[facility] Code Phon e Number [facility]- [address] [place] [address] [place] [address] System in [place] [address] [facility] (ABNORMAL) Prothrombin Time (PT) (12/02/2021 4:14 PM CDT) [facility] Method Time Signature Prothrombin 33.5 (H) 9.4 [...] Code Phon e Number [facility]- [address] [place] [address] [facility] [place] [address] System in [place] [address] [facility] documented in this encounter Visit Diagnoses Diagnosis Cirrhosis Alcoholic (HCC) Hypertension Portal (HCC) Thrombocytopenia (HCC) Abnormal Liver Function Test Change Mental Status Cirrhosis Alcoholic (HCC) Hypertension Portal (HCC) documented in this encounter Additional Health Concerns Assessment Noted Time PHQ-9 Depression Total Score: 10 10/06/2021 5:00 PM CD T documented as of this encounter Care Teams Labor Standards Director Relationship Specialty Start Date End Date Ana Red P.A.-C. PCP - General Internal Medicine 12/01/[address] [place] [phone] [facility]- [place] lab 08/25/21 Ervin Schroeder MD Referring Provider Family Medicine 03/24/[address] [place] [address] documented as of this encounter
--- OUTSIDE RECORDS SUMMARY | 2022-02-04 23:12 | XMS_ITS | Encounter Summary ---
:1990 Author Organization [facility] Address [address] [place] [address] Care Team Providers Name Role Phone Elsewhere, Pcp Primary Care Provider Unavailable Encounter Details Date Type Department Care Team Description 11/27/2021 Orders Only Division [facility] Gerard Andino M.D ., Internal Medicine, [facility], in [place], [facility] [address] [place], [place] [address] [facility] [phone] [place] [address] [phone] Social History Tobacco Use Types Packs/Day Years [...] do you attend mandaeism or Never 2021 sikhism services? 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 [address] [place] [phone] Lab Laboratory Medicine [place], 2 Adeline Gannon M.D., Ph.D. [address] [place] [phone] Office Visit Transplant Karin, 2 Adeline Gannon M.D., Ph.D. [address] [place] [phone] Office Visit [facility] [place], 2 Medicine Vernell Perez [address] [place] [phone] Appointment Radiology Matthew Jerome 2 Y, M.B.B.SSuma, Lilian [address] [place] [phone] Appointment Gastroenterology and Adrianne, 2 Hepatology Yue Burciaga M.D. [address] [place] [phone] Office Visit Gastroenterology and Matthew Jerome 2 Hepatology Jennifer M.B.B.SLilian Moise [address] [place] [phone] Appointment Radiology Matthew Jerome 2 Y M.B.B.SLilian Moise [address] [place] [phone] Scheduled Procedures Name Priority Associated Diagnoses Date/Time ESOPHAGOGASTRODUODENOSCOPY Cirrhosis Alc oholic (HCC) 02/10/2022 8:45 AM CDT Hypertension Portal (HCC) documented as of this encounter Visit Diagnoses Not on filedocumented in this encounter Additional Health Concerns Assessment Noted Time PHQ-9 Depression Total Score: 10/06/2021 5:00 PM CD T documented as of this encounter Care Teams Education Officer Relationship Specialty Start Date End Date Elsewhere, Pcp PCP - General Family Medicine 03/10/20 11/30/21 [facility] [place] lab 08/25/21 rEvin Schroeder MD Referring Provider Family Medicine 03/24/[address] [place] [address] documented as of this encounter
--- OUTSIDE RECORDS SUMMARY | 2022-02-04 23:12 | XMS_ITS | Encounter Summary ---
:1990 Author Organization [facility] Address [address] [place] [address] Care Team Providers Name Role Phone Ana Red P.A.-C. Primary Care Provider [phone] Reason for Visit Reason Comments Post Hospital Follow-up Encounter Details Date Type Department Care Team Description 12/02/2021 Clinical Communication Department of [facility] Internal Ciara Johnson R.N. 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 - 12/02/2021 12:44 PM CDT Patient seen [...] Type Specialty Care Team Description Hospital Radiology [facility] 2 Encounter Tyrell Rodriguez M.D. [address] [place] [phone] Hospital Gastroenterology and [facility] 2 Encounter Hepatology Tyrell Rodriguez M.D. [address] [place] [phone] Surgery Gastroenterology and [facility] ESOPHAG OGASTRODUODENOSCOPY 2 Hepatology Tyrell Rodriguez M.D. [address] [place] [phone] Telemedicine Transplant 2 Lab Laboratory Medicine Karin, Olinda Gannon M.D., Ph.D. [address] [place] [phone] Lab Laboratory Medicine Olinda Frazier M.D., Ph.D. [address] [place] [phone] Office Visit Transplant Olinda Frazier M.D., Ph.D. [address] [place] [phone] Office Visit [facility] Internal [facility], 2 Medicine Vernell Perez [address] [place] [phone] Appointment Radiology Matthew Jerome 2 Y M.B.B.SSuma, Lilian [address] [place] [address] [phone] Appointment Gastroenterology and Adrianne, 2 Hepatology Yue Burciaga M.D. [address] [place] [phone] Office Visit Gastroenterology and LuisMatthew abdul 2 Hepatology YJoshuaB.B.SSuma, Lilian [address] [place] [phone] Appointment Radiology LuisMatthew abdul 2 YElizabeth.B.B.Kath, Lilian [address] [place] [phone] Scheduled Procedures Name Priority Associated Diagnoses Date/Time ESOPHAGOGASTRODUODENOSCOPY Cirrhosis Alc oholic (HCC) 02/10/2022 8:45 AM CDT Hypertension Portal (HCC) documented as of this encounter Visit Diagnoses Not on filedocumented in this encounter Additional Health Concerns Assessment Noted Time PHQ-9 Depression Total Score: 10 10/06/2021 5:00 PM CD T documented as of this encounter Care Teams Watch Inspector Relationship Specialty Start Date End Date Ana Red P.A.-C. PCP - General Internal Medicine 12/01/[address] [place] [phone] [facility]- [place] lab 08/25/21 Ervin Schroeder MD Referring Provider Family Medicine 03/24/[address] [place] [address] documented as of this encounter
--- OUTSIDE RECORDS SUMMARY | 2022-02-04 23:12 | XMS_ITS | Encounter Summary ---
:1990 Author Organization [facility] Address [address] [place] [address] Care Team Providers Name Role Phone Ana Red P.A.-C. Primary Care Provider Encounter Details Date Type Department Care Team Description 11/26/2021 Clinical Communication Division [facility] Luly Bentley, [facility] [address] [place] [address] [place] [phone] [place], [place] [phone] (Work) [phone] Social History Tobacco Use Types Packs/Day Years [...] do you attend anglican or Never 2021 gnosticist services? Do you belong to any clubs or No 07/17/2021 organizations such as anglican groups, unions, fraThe Bakery or athletic groups, or school groups? 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 [address] [place] [phone] Hospital Gastroenterology and Mousa, Matthew 2 Encounter Hepatology Tyrell Rodriguez M.D. [address] [place] [address] [phone] Surgery Gastroenterology and Mousa, Matthew ESOPHAG OGASTRODUODENOSCOPY 2 Hepatology Tyrell Rodriguez M.D. [address] [place] [phone] Telemedicine Transplant 2 Lab Laboratory Medicine Olinda Frazier M.D., Ph.D. [address] [place] [phone] Lab Laboratory Medicine Karin, 2 Adeline Gannon M.D., Ph.D. [address] [place] [phone] Office Visit Transplant Karin, 2 Adeline Gannon M.D., Ph.D. [address] [place] [phone] Office Visit [facility] [place], 2 Medicine Vernell Perez [address] [place] [phone] Appointment Radiology Matthew Jerome 2 Y M.B.B.SLilian Moise [address] [place] [phone] Appointment Gastroenterology and Adrianne, 2 Hepatology Yue Burciaga M.D. [address] [place] [address] [phone] Office Visit Gastroenterology and Matthew Jerome 2 Hepatology Jennifer M.B.B.SLilian Moise [address] [place] [phone] Appointment Radiology Matthew Jerome 2 Y M.B.B.SLilian Moise [address] [place] [phone] Scheduled Procedures Name Priority Associated Diagnoses Date/Time [...] CDT eGFR-Black/Afri >90 >=60 12/02/2021 [place] can Malagasy mL/min/BSA 6:46 PM CDT Comment: ----ADDITIONAL INFORMATION---- [...] Address City/State/ZIP Code Phon e Number [facility]- [address] [place] [address] [place] [address] System in [place] [address] documented in this encounter Visit Diagnoses Diagnosis Change Mental Status - Primary Cirrhosis Alcoholic (HCC) Hypertension Portal (HCC) documented in this encounter Additional Health Concerns Assessment Noted Time PHQ-9 Depression Total Score: 10 10/06/2021 5:00 PM CD T documented as of this encounter Care Teams Director Hydrogen Storage Engineering Relationship Specialty Start Date End Date Ana Red P.A.-C. PCP - General Internal Medicine 12/01/[address] [place] [phone] [facility]- [place] lab 08/25/21 Ervin Schroeder MD Referring Provider Family Medicine 03/24/[address] [place] [address] documented as of this encounter
--- OUTSIDE RECORDS SUMMARY | 2022-02-04 23:12 | XMS_ITS | Encounter Summary ---
:1990 Author Organization [facility] Address [address] [place] [address] Care Team Providers Name Role Phone Ana RedCSuma Primary Care Provider Reason for Referral Outpatient (Routine) - Authorized Specialty Diagnoses / Procedures Referred By Contact Refer red To Contact [facility] Internal Ana Red [facility] P.Ana[facility] 300 [facility] [place] [address] Referral ID Status Reason Start Date Expiration Date Visits V isits Requested Authorized [id number] Authorized 12/02/2021 12/02/2022 1 1 Encounter Details Date Type Department Care Team Description 12/02/2021 Orders Only [facility] PCP TH MNT Ana Red P.A.-C. 300 [facility] [place] [phone] (Wo rk) Social History [...] do you attend anabaptism or Never 2021 confucianism services? 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 Plan of Treatment Upcoming Encounters Date Type Specialty Care Team Description [facility] Radiology Matthew Jerome 2 Encounter YVikBGraeme, M.Jeri [facility] [place] [phone] Hospital Gastroenterology and Luischantell Matthew 2 Encounter Hepatology Vik RodriguezBGraeme, MJules [address] [place] [phone] Surgery Gastroenterology and [facility] Matthew ESOPHAG OGASTRODUODENOSCOPY 2 Hepatology Tyrell Rodriguez, MJules [address] [place] [phone] Telemedicine Transplant 2 Lab Laboratory Medicine Karin, 2 Adeline Gannon M.D., Ph.D. [address] [place] [phone] Lab Laboratory Medicine Karin, 2 Adeline Gannon M.D., Ph.D. [address] [place] [phone] Office Visit Transplant Karin, 2 Adeline Gannon M.D., Ph.D. [address] [place] [phone] Office Visit [facility], 2 Medicine Luis Perez. 300 [place] [phone] Appointment Radiology Luischantell Matthew 2 Vik RodriguezBGraeme, MSumaDSuma [facility] [place] [phone] Appointment Gastroenterology and Adrianne, 2 Hepatology Yue Burciaga M.D. [address] [place] [phone] Office Visit Gastroenterology and Matthew Jerome 2 Hepatology Tyrell Rodriguez M.D. [address] [place] [phone] Appointment Radiology QueenieMatthew 2 Tyrell Rodriguez M.D. [address] [place] [phone] Scheduled Procedures Name Priority Associated Diagnoses Date/Time ESOPHAGOGASTRODUODENOSCOPY Cirrhosis Alc oholic (HCC) 02/10/2022 8:45 AM CDT Hypertension Portal (HCC) Scheduled Referrals Name Type Priority Associated Diagnoses [facility] Internal Outpatient Referral Routine Ex pected: Medicine office 12/16/2021, visit (clinic) Expires: 05/31/2022 documented as of this encounter Visit Diagnoses Not on filedocumented in this encounter Additional Health Concerns Assessment Noted Time PHQ-9 Depression Total Score: 10 10/06/2021 5:00 PM CD T documented as of this encounter Care Teams Visitor Services Coordinator Relationship Specialty Start Date End Date Ana Red P.A.-C. PCP - General Internal Medicine 12/01/[address] [place] [address] [phone] [facility]- [place] lab 08/25/21 Ervin Schroeder MD Referring Provider Family Medicine 03/24/[address] [place] [address] documented as of this encounter
--- OUTSIDE RECORDS SUMMARY | 2022-02-04 23:12 | XMS_ITS | Encounter Summary ---
:1990 Author Organization [facility] Address [address] [place] [address] Care Team Providers Name Role Phone Ana Red P.A.-C. Primary Care Provider [phone] Encounter Details Date Type Department Care Team Description 11/26/2021 [facility] Dena Schroeder tohepatitis Non Alcoholic (Primary Dx); AND CLINICS Ervin Schaefer M.D. Unspecified Cirrhosis Of Liver (HCC) [address], [place] [address] [phone] Social History Tobacco Use Types Packs/Day Years [...] do you attend yarsani or Never 2021 gnosticism services? Do you belong to any clubs or No 07/17/2021 organizations such as yarsani groups, unions, fraAdhesion Wealth Advisor Solutions or athletic groups, or school groups? 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 [address] [place] [address] [phone] Hospital Gastroenterology and Matthew Jerome 2 Encounter Hepatology Tyrell Rodriguez M.D. [address] [place] [phone] Surgery Gastroenterology and Matthew Jerome ESOPHAG OGASTRODUODENOSCOPY 2 Hepatology Tyrell Rodriguez M.D. [address] [place] [phone] Telemedicine Transplant 2 Lab Laboratory Medicine Olinda Frazier M.D., Ph.D. [address] [place] [phone] Lab Laboratory Medicine Karin, 2 Adeline Gannon M.D., Ph.D. [address] [place] [phone] Office Visit Transplant Karin, Olinda Gannon M.D., Ph.D. [address] [place] [phone] Office Visit [facility], 2 Medicine Vernell Perez [address] [place] [phone] Appointment Radiology Matthew Jerome 2 Y M.BSumaBSumaSLilian Moise [address] [place] [phone] Appointment Gastroenterology and Adrianne, 2 Hepatology Yue Burciaga M.D. [address] [place] [phone] Office Visit Gastroenterology and Matthew Jerome 2 Hepatology Joshua RodriguezBSumaB.Lilian [place] [address] [place] [phone] Appointment Radiology Matthew Jerome 2 Y M.B.B.Lilian [place] [address] [place] [phone] Scheduled Procedures Name Priority Associated Diagnoses Date/Time [...] documented as of this encounter Care Teams Guide Domestic Tour Relationship Specialty Start Date End Date Ana Red P.A.-C. PCP - General Internal Medicine 12/01/[address] [place] [address] [phone] [facility]- [place] lab 08/25/21 Ervin Schroeder MD Referring Provider Family Medicine 03/24/[address] [place] [address] documented as of this encounter
--- OUTSIDE RECORDS SUMMARY | 2022-02-04 23:12 | XMS_ITS | Encounter Summary ---
:1990 Author Organization [facility] Address [address] [place] [address] Care Team Providers Name Role Phone Ana Red P.A.-C. Primary Care Provider [phone] Reason for Visit Reason Comments [employer]ANK[employer] / Appeal Letter Encounter Details Date Type Department Care Team Description 12/03/2021 Clinical Communication Department [facility], BIANKA / Appeal Letter [facility] Internal Lilian Gee, Medicine in [facility], [address] [place], [place] 300 [facility] [phone] ADI PANIAGUA [phone] (Work) [phone] Social History Tobacco Use Types Packs/Day Years [...] do you attend anabaptist or Never 2021 jainism services? 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 Gerard Andino's 12/03 appeal letter was faxed to [phone], confirmation was received documented in this encounter Plan of Treatment Upcoming Encounters Date Type Specialty Care Team Description Hospital Radiology [place], Matthew 2 Encounter YTyrell, M.Jeri [address] [place] [phone] Hospital Gastroenterology and Mochantell, Matthew 2 Encounter Hepatology Tyrell Rodriguez, Lilian [address] [place] [phone] Surgery Gastroenterology and Mousa, Matthew ESOPHAG OGASTRODUODENOSCOPY 2 Hepatology Tyrell Rodriguez M.D. [address] [place] [phone] Telemedicine Transplant 2 Lab Laboratory Medicine Karin, Olinda Gannon M.D., Ph.D. [address] [place] [phone] Lab Laboratory Medicine Karin, Olinda Gannon M.D., Ph.D. [address] [place] [phone] Office Visit Transplant Karin, Olinda Gannon M.D., Ph.D. [address] [place] [phone] Office Visit [facility], 2 Medicine Luis Perez. [address] [place] [phone] Appointment Radiology Liuschantell, Matthew 2 Vik RodriguezBGraeme, Lilian [address] [place] [phone] Appointment Gastroenterology and Adrianne, 2 Hepatology Yue Burciaga M.D. [address] [place] [phone] Office Visit Gastroenterology and Matthew Jerome 2 Hepatology YTyrell, Lilian [address] [place] [address] [phone] Appointment Radiology QueenieMatthew 2 Tyrell Rodriguez M.D. [address] [place] [address] [phone] Scheduled Procedures Name Priority Associated Diagnoses Date/Time ESOPHAGOGASTRODUODENOSCOPY Cirrhosis Alc oholic (HCC) 02/10/2022 8:45 AM CDT Hypertension Portal (HCC) documented as of this encounter Visit Diagnoses Not on filedocumented in this encounter Additional Health Concerns Assessment Noted Time PHQ-9 Depression Total Score: 10 10/06/2021 5:00 PM CD T documented as of this encounter Care Teams Channel Sales Manager Relationship Specialty Start Date End Date Ana Red P.A.-C. PCP - General Internal Medicine 12/01/[address] [place] [address] [place] [phone] [facility]- [place] lab 08/25/21 Ervin Schroeder MD Referring Provider Family Medicine 03/24/[address] [place] [address] documented as of this encounter
--- OUTSIDE RECORDS SUMMARY | 2022-02-04 23:12 | XMS_ITS | Encounter Summary ---
:1990 Author Organization [facility] Address [address] [place] [address] Care Team Providers Name Role Phone Ana Red P.A.-C. Primary Care Provider [phone] Encounter Details Date Type Department Care Team Description 12/02/2021 Clinical Communication Pharmacy Prior Auth Ronald smith Jasmynebrant JUAREZ [phone] Social History Tobacco Use Types Packs/Day Years [...] do you attend cheondoism or Never 2021 orthodox services? 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 [address] [place] [phone] Hospital Gastroenterology and [facility], Matthew 2 Encounter Hepatology Tyrell Rodriguez M.D. [address] [place] [phone] Surgery Gastroenterology and [facility] [place] ESOPHAG OGASTRODUODENOSCOPY 2 Hepatology Tyrell Rodriguez M.D. [address] [place] [phone] Telemedicine Transplant 2 Lab Laboratory Medicine Olinda Frazier M.D., Ph.D. [address] [place] [phone] Lab Laboratory Medicine Olinda Frazier M.D., Ph.D. [address] [place] [address] [phone] Office Visit Transplant Olinda Frazier M.D., Ph.D. [address] [place] [phone] Office Visit Community Internal [facility], 2 Solitario Perez P.A.-C. [address] [place] [phone] Appointment Radiology Matthew Jerome 2 Y MSumaB.B.SSuma, Lilian [address] [place] [phone] Appointment Gastroenterology and Adrianne, 2 Hepatology Yue Burciaga M.D. [address] [place] [phone] Office Visit Gastroenterology and Matthew Jerome 2 Hepatology Joshua RodriguezBSumaBLilian Bedolla [address] [place] [phone] Appointment Radiology Matthew Jerome 2 Y M.B.B.SLilian Moise [address] [place] [address] [phone] Scheduled Procedures Name Priority Associated Diagnoses Date/Time ESOPHAGOGASTRODUODENOSCOPY Cirrhosis Alc oholic (HCC) 02/10/2022 8:45 AM CDT Hypertension Portal (HCC) documented as of this encounter Visit Diagnoses Not on filedocumented in this encounter Additional Health Concerns Assessment Noted Time PHQ-9 Depression Total Score: 10 10/06/2021 5:00 PM CD T documented as of this encounter Care Teams Loan Interviewer Mortgage Relationship Specialty Start Date End Date Ana Red P.A.-C. PCP - General Internal Medicine 12/01/[address] [facility] [address] ADI PANIAGUA [phone] [facility] [place] lab 08/25/21 Ervin Schroeder MD Referring Provider Family Medicine 03/24/[address] [place] [address] ADI Paniagua [phone] documented as of this encounter
--- OUTSIDE RECORDS SUMMARY | 2022-02-04 23:12 | XMS_ITS | Encounter Summary ---
:1990 Author Organization [facility] Address [address] [place] [address] Care Team Providers Name Role Phone Ana Red P.A.-C. Primary Care Provider [phone] Encounter Details Date Type Department Care Team Description 12/02/2021 Clinical Communication Division of [facility] S[facility] Andino, Internal Medicine, Call[facility]., [facility] [address] [place] [address] [place] [phone] [place], [place] [phone] (Work) [phone] Social History Tobacco Use Types Packs/Day Years [...] do you attend temple or Never 2021 jain services? 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 [address] [place] [phone] Hospital Gastroenterology and Matthew Jerome 2 Encounter Hepatology Tyrell Rodriguez M.D. [address] [place] [phone] Surgery Gastroenterology and Matthew Jerome ESOPHAG OGASTRODUODENOSCOPY 2 Hepatology Vik RodriguezBLilian Bedolla [address] [place] [phone] Telemedicine Transplant 2 Lab Laboratory Medicine Karin, 2 Adeline Gannon M.D., Ph.D. [address] [place] [address] [phone] Lab Laboratory Medicine Karin, 2 Adeline Gannon M.D., Ph.D. [address] [place] [address] [phone] Office Visit Transplant Karin, 2 Adeline Gannon M.D., Ph.D. [address] [place] [address] [phone] Office Visit Community Internal Dean[place], 2 Medicine Vernell Perez [address] [place] [phone] Appointment Radiology Matthew Jerome 2, M.B.BLilian Bedolla [address] [place] [phone] Appointment Gastroenterology and [place], 2 Hepatology Yue Burciaga M.D. [address] [place] [phone] Office Visit Gastroenterology and Matthew Jerome 2 Hepatology Vik RodriguezBLilian Bedolla [address] [place] [address] [phone] Appointment Radiology Matthew Jerome 2, M.B.B.S., MJules [address] [place] [phone] Scheduled Procedures Name Priority Associated Diagnoses Date/Time ESOPHAGOGASTRODUODENOSCOPY Cirrhosis Alc oholic (HCC) 02/10/2022 8:45 AM CDT Hypertension Portal (HCC) documented as of this encounter Visit Diagnoses Not on filedocumented in this encounter Additional Health Concerns Assessment Noted Time PHQ-9 Depression Total Score: 10/06/2021 5:00 PM CD T documented as of this encounter Care Teams Cloth Shearer Relationship Specialty Start Date End Date Ana Red P.A.-C. PCP - General Internal Medicine 12/01/[address] [place] [phone] [facility]- [place] lab 08/25/21 Ervin Schroeder MD Referring Provider Family Medicine 03/24/[address] [place] [phone] documented as of this encounter
--- OUTSIDE RECORDS SUMMARY | 2022-02-04 23:12 | XMS_ITS | Encounter Summary ---
:1990 Author Organization [facility] Address [address] [place] [address] Care Team Providers Name Role Phone Ana Red P.A.-C. Primary Care Provider [phone] Reason for Referral Outpatient (Routine) - Pending Review Specialty Diagnoses / Procedures Referred By Contact Refer red To Contact Sleep Medicine Diagnoses [facility] [address] [place] [phone] Referral ID Status Reason Start Expiration Visits Visits Date Date Requested Authorized [id number] Pending Specialty 12/02/2021 12/02/2022 1 1 Review Services Required Scheduling Instructions Schedule stat since her study was cancel led twice Outpatient (Routine) - Closed Specialty Diagnoses / Procedures Referred By Contact Tabatha lamar To Contact Community Internal JESSE Arnold ADI R egion Medicine Jeri CorreaOSuma [address], [place] [phone] Referral ID Status Reason Start Date Expiration Date Visits Requ ested Visits Authorized [id number] Closed 12/02/2021 12/02/2022 1 1 Scheduling Instructions Schedule with ana her PCP . Zurdo jules up on liver cirrhosis , and hepatic encephalopathy Outpatient (Routine) - Authorized Specialty Diagnoses / Procedures Referred By Contact Refer brianda To Contact Diagnoses Alcoholic Cirrhosis Of Liver Without Ascites (HCC) Ascites Chronic Sunny Arnold [facility] Region Procedures US Abdomen Complete D.O. 2199 [place] [phone] Referral ID Status Reason Start Date Expiration Date Visits V isits Requested Authorized [id number] Authorized 12/02/2021 12/02/2022 1 1 Reason for Visit Reason Comments Post Hospital Follow-up TCM post [facility] stay with discharge on 11/26/2021 Appointment Request (Routine) - Closed Specialty Diagnoses / Procedures Referred By Contact Refer brianda To Contact Community Internal Medicine Referral ID Status Reason Start Date Expiration Date Visits Requ ested Visits Authorized [id number] Closed 12/01/2021 12/01/2022 1 1 Encounter Details Date Type Department Care Team Description 12/02/2021 Office Visit Department of Internal Silvano Arnold cutluzma And Subacute Hepatic Failure Without Coma (HCC) (Primary Dx); Medicine in [place] D.O . Pancreatitis Chronic (HCC); [place] [address]199 Retirement Use Of Opiate Analgesic; [address] [place], [place] Alcohol Use Unspecified With Unspecified Alcohol Induced Disorder (HCC); [place] [address] Alcoholic Cirrhosis Of Liver Without Asc ites (HCC); [phone] Ascites Chronic; Insomnia; [phone] High Risk Medic ation (Fax) Social History [...] do you attend adventist or Never 2021 jainism services? 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 On arrival to [facility], she was unable to follow commands. [...] Coma (HCC) #2 Pancreatitis Chronic (HCC) #3 Scale Installer Use Of Opiate Analgesic #4 Alcohol Use [...] SBP was ruled out. On arrival to [facility], she was unable to follow commands. [...] Type Specialty Care Team Description Hospital Radiology [facility] 2 Encounter Tyrell Rodriguez M.D. [address] [place] [phone] Hospital Gastroenterology and [facility] 2 Encounter Hepatology Tyrell Rodriguez M.D. [address] [place] [phone] Surgery Gastroenterology and [facility] ESOPHAG OGASTRODUODENOSCOPY 2 Hepatology Tyrell Rodriguez M.D. [address] [place] [address] [phone] Telemedicine Transplant 2 Lab Laboratory Medicine Karin, 2 Adeline Gannon M.D., Ph.D. [address] [place] [phone] Lab Laboratory Medicine Olinda Frazier M.D., Ph.D. [address] [place] [phone] Office Visit Transplant Karin, Olinda Gannon M.D., Ph.D. [address] [place] [phone] Office Visit [facility] Internal [facility], 2 Medicine Vernell Perez [address] [place] [phone] Appointment Radiology Matthew Jerome 2 Y M.B.B.SLilian Moise [address] [place] [phone] Appointment Gastroenterology and Adrianne 2 Hepatology Yue Burciaga M.D. [address] [place] [phone] Office Visit Gastroenterology and Matthew Jerome 2 Hepatology Jennifer M.B.B.SLilian Moise [address] [place] [phone] Appointment Radiology Matthew Jerome 2 Y M.B.B.SLilian Moise [address] [place] [address] [phone] Scheduled Orders Name Type Priority Associated Diagnoses [...] Name Type Priority Associated Diagnoses Order [facility] [employer] Internal Outpatient Referral Routine Ex pected: Medicine office 12/16/2021 visit (clinic) (Approximate) , Expires: 03/04/2023 Sleep Medicine - Outpatient Referral Routine Insomnia Expe cted: General consult 12/02/2021 (clinic) (Approximate), Expires: 03/04/2023 documented as of this encounter Visit Diagnoses Diagnosis Acute And Subacute Hepatic Failure Witho ut Coma (HCC) - Primary Pancreatitis Chronic (HCC) Scale Installer Use Of Opiate Analgesic Alcohol Use Unspecified With Unspecified Alcohol Induced Disorder (HCC) Alcoholic Cirrhosis Of Liver Without Asc ites (HCC) Ascites Chronic Insomnia High Risk Medication Cirrhosis Alcoholic (HCC) Hypertension Portal (HCC) documented in this encounter Additional Health Concerns Assessment Noted Time PHQ-9 Depression Total Score: 10 10/06/2021 5:00 PM CD T documented as of this encounter Care Teams Obstetrics Tech Relationship Specialty Start Date End Date Ana Red P.A.-C. PCP - General Internal Medicine 12/01/[address] [place], [place] [address] [phone] [facility] [place] lab 08/25/21 Ervin Schroeder MD Referring Provider Family Medicine 03/24/[address] [place], [place] [address] [address] documented as of this encounter
--- OUTSIDE RECORDS SUMMARY | 2022-02-04 23:12 | XMS_ITS | Encounter Summary ---
:1990 Author Organization [facility] Address [address] [place] [address] Care Team Providers Name Role Phone Ana Red P.A.-C. Primary Care Provider Reason for Referral Specialty Diagnoses / Procedures Referred By Contact Refer red To Contact Ana Red P .A.-C. [facility] Region [address] [place] [address] Referral ID Status Reason Start Date Expiration Date Visits Requ ested Visits Authorized Encounter Details Date Type Department Care Team Description 12/03/2021 Orders Only [facility] Ana Red P.A.-C. [address] [place], [place] [phone] (Wo rk) Social History [...] do you attend religious or Never 2021 advent services? 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 [address] [place] [phone] Surgery Gastroenterology and Mousa, Matthew ESOPHAG OGASTRODUODENOSCOPY 2 Hepatology Tyrell Rodriguez M.D. [address] [place] [phone] Telemedicine Transplant 2 Lab Laboratory Medicine Karin, 2 Adeline Gannon M.D., Ph.D. [address] [place] [phone] Lab Laboratory Medicine Karin, 2 Adeline Gannon M.D., Ph.D. [address] [place] [address] [phone] Office Visit Transplant Karin, 2 Adeline Gannon M.D., Ph.D. [address] [place] [address] [phone] Office Visit Community [facility], 2 Medicine Vernell Perez [address] [place] [phone] Appointment Radiology Mousa, Matthew 2 Tyrell Rodriguez, Lilian [address] [place] [phone] Appointment Gastroenterology and Adrianne, 2 Hepatology Yue Burciaga M.D. [address] [place] [phone] Office Visit Gastroenterology and Matthew Jerome 2 Hepatology YTyrell, Lilian [address] [place] [phone] Appointment Radiology LuisMatthew abdul 2 YTyrell M.D. [address] [place] [phone] Scheduled Procedures Name Priority Associated Diagnoses [...] documented as of this encounter Care Teams Mend Worker Relationship Specialty Start Date End Date Ana Red P.A.-C. PCP - General Internal Medicine 12/01/[address] [place] [phone] [facility] [place] lab 08/25/21 Ervin Schroeder MD Referring Provider Family Medicine 03/24/[address] [place] [address] documented as of this encounter
--- OUTSIDE RECORDS SUMMARY | 2022-02-04 23:12 | XMS_ITS | Encounter Summary ---
:1990 Author Organization [facility] Address [address] [place] [address] Care Team Providers Name Role Phone Ana Red P.A.-C. Primary Care Provider [phone] Encounter Details Date Type Department Care Team Description 12/04/2021 Documentation Division of Gastroenterology Concepción Morelos, in [facility] pedro Quintana [address] [facility] [address] [place] [address] [place], [place] [phone] (Wo rk) Social History Tobacco Use Types [...] do you attend denominational or Never 2021 cheondoism services? Do you belong to any clubs or No 07/17/2021 organizations such as denominational groups, unions, fraInsuritas or athletic groups, or school groups? 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 female [...] is most comfortable having this done at [place]. She denies n/v, confusion, melena, hematochezia, or [...] would like to receive her care at [place]. She is planning to come to the [...] today and willing to come back to [place] (lives about 40 min away). I am working with [facility] to get her in for an outpatient para and have forwarded my note to Dr. Jerome as well. Nabila Morelos M.D. Gastroenterology Fellow documented in this encounter Plan of Treatment Upcoming Encounters Date Type Specialty Care Team Description Hospital Radiology [facility] 2 Encounter Tyrell Rodriguez M.D. [address] [place] [phone] [facility] Gastroenterology and [facility] 2 Encounter Hepatology Tyrell Rodriguez M.D. [address] [place] [phone] G[address] [facility] ESOPHAG OGASTRODUODENOSCOPY 2 Hepatology Tyrell Rodriguez M.D. [address] [place] [phone] Telemedicine Transplant 2 Lab Laboratory Medicine Karin, Olinda Gannon M.D., Ph.D. [address] [place] [phone] Lab Laboratory Medicine Olinda Frazier M.D., Ph.D. [address] [place] [phone] Office Visit Transplant Karin 2 Adeline Gannon M.D., Ph.D. [address] [place] [phone] Office Visit Community Internal Neda, Olinda Medicine Vernell Perez [address] [place] [address] [phone] Appointment Radiology Matthew Jerome 2 YTyrell, Lilian [address] [place] [phone] Appointment Gastroenterology and Adrianne 2 Hepatology Yue Burciaga M.D. [address] [place] [phone] Office Visit Gastroenterology and Matthew Jerome 2 Hepatology Tyrell Rodriguez, Lilian [address] [place] [phone] Appointment Radiology Matthew Jerome 2 YJoshuaBSumaBGraeme, Lilian [address] [place] [phone] Scheduled Procedures Name Priority Associated Diagnoses Date/Time ESOPHAGOGASTRODUODENOSCOPY Cirrhosis Alc oholic (HCC) 02/10/2022 8:45 AM CDT Hypertension Portal (HCC) documented as of this encounter Visit Diagnoses Not on filedocumented in this encounter Additional Health Concerns Assessment Noted Time PHQ-9 Depression Total Score: 10/06/2021 5:00 PM CD T documented as of this encounter Care Teams Fur Stylist Relationship Specialty Start Date End Date Ana Red P.A.-C. PCP - General Internal Medicine 12/01/[address] [place] [address] [place] [phone] [facility] 08/25/21 Ervin Schroeder MD Referring Provider Family Medicine 03/24/[address] [place] [address] ADI Mejía [phone] documented as of this encounter
--- OUTSIDE RECORDS SUMMARY | 2022-02-04 23:13 | XMS_ITS | Encounter Summary ---
:1990 Author Organization [facility] Address [address] [place] [address] Care Team Providers Name Role Phone Elsewhere, Pcp Primary Care Provider Unavailable Reason for Visit Reason Comments Covid Positive Encounter Details Date Type Department Care Team Description 11/12/2021 Clinical Department of Matthew Jerome Positive Communication Gastroenterology in , M.B.[facility] [address] [facility] 1025 [place] [address] [place], [place] [phone] Social History Tobacco Use Types Packs/Day [...] do you attend voodoo or Never 2021 oriental orthodox services? Do you belong to any clubs or No 07/17/2021 organizations such as voodoo groups, unions, fraMindShare Networks or athletic groups, or school groups? 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 [employer] guidelines recommend that this appointment be changed to a video visit or postponed until after 11/22/2021 unless medically necessary. Please review and forward to your embedded scheduling team to contact the patient to discuss their options. Thank you documented in this encounter Plan of Treatment Upcoming Encounters Date Type Specialty Care Team Description Hospital Radiology [facility] 2 Encounter Tyrell Rodriguez M.D. [address] [place] [address] [phone] Hospital Gastroenterology and [facility] 2 Encounter Hepatology Tyrell Rodriguez M.D. [address] [place] [phone] Surgery Gastroenterology and [facility] ESOPHAG OGASTRODUODENOSCOPY 2 Hepatology Tyrell Rodriguez M.D. [address] [place] [phone] Telemedicine Transplant 2 Lab Laboratory Medicine Olinda Frazier M.D., Ph.D. [address] [place] [phone] Lab Laboratory Medicine Olinda Frazier M.D., Ph.D. [address] [place] [address] [phone] Office Visit Transplant Olinda Frazier M.D., Ph.D. [address] [place] [phone] Office Visit Community Internal [facility], 2 Solitario Perez P.A.-C. [address] [place] [phone] Appointment Radiology Matthew Jerome 2 YTyrell M.D. [address] [place] [phone] Appointment Gastroenterology and Adrianne, 2 Hepatology Yue Burciaga M.D. [address] [place] [phone] Office Visit Gastroenterology and Matthew Jerome 2 Hepatology Tyrell Rodriguez M.D. [address] [place] [phone] Appointment Radiology Matthew Jerome 2 YTyrell M.D. [address] [place] [address] [phone] Scheduled Procedures Name Priority Associated Diagnoses Date/Time ESOPHAGOGASTRODUODENOSCOPY Cirrhosis Alc oholic (HCC) 02/10/2022 8:45 AM CDT Hypertension Portal (HCC) documented as of this encounter Visit Diagnoses Not on filedocumented in this encounter Additional Health Concerns Infection Onset Date Last Indicated Resolved Time COVID19 Pending 11/12/2021 11/12/2021 11/12/2021 4:20 AM CDT [id number]: Patients who are NOT sev erely immunocompromised: Asymptomatic - At least 10 days have passed since the date of the first positive PCR test 11/12/2021 11/12/2021 11/13/2021 3:19 PM CDT and Patient has remained asymptomatic throughout their infection Assessment Noted Time PHQ-9 Depression Total Score: 10 10/06/2021 5:00 PM CD T documented as of this encounter Care Teams Bioinformatics Specialist Relationship Specialty Start Date End Date Elsewhere, Pcp PCP - General Family Medicine 03/10/20 11/30/21 [facility] [place] lab 08/25/21 Ervin Schroeder MD Referring Provider Family Medicine 03/24/[address] [place] [phone] documented as of this encounter
--- OUTSIDE RECORDS SUMMARY | 2022-02-04 23:13 | XMS_ITS | Encounter Summary ---
:1990 Author Organization [facility] Address [address] [place] [address] Care Team Providers Name Role Phone Elsewhere, Pcp Primary Care Provider Unavailable Reason for Referral Outpatient (Routine) - Authorized Specialty Diagnoses / Procedures Referred By Contact Refer red To Contact Diagnoses Cirrhosis Alcoholic (HCC) Gerard Andino M.D., M.S. [address] [place] [address] Referral ID Status Reason Start Date Expiration Date Visits V isits Requested Authorized [id number] Authorized 11/26/2021 11/26/2022 1 1 Medication Prior Authorization - Denied Specialty Diagnoses / Procedures Referred By Contact Refer red To Contact Gerard Andino M.D. , M.S. [address] [place] [phone] Referral ID Status Reason Start Date Expiration Date Visits Requ ested Visits Authorized [id number] Denied 1 1 Reason for Visit Reason Comments Altered Mental Status Auth/Cert Specialty Diagnoses / Procedures Referred By Contact Refer red To Contact Diagnoses Change Mental Status Malaise (Concern For Covid-19) Encephalopathy Procedures ETU Referral ID Status Reason Start Date Expiration Date Visits Requ ested Visits Authorized [id number] 1 1 Encounter Details Date Type Department Care Team Description 11/12/2021 - [facility] Rosaura Sevilla M.D., M.P.H. [address] [place] [address] Encephalopathy (Primary Dx); [facility] [address] [place] [address] Change Mental Status; [facility] Jody Aguilar M.B., B.Chir. [address] [place] [phone] Malaise (Concern For Covid-19); Lambert Tate [facility] ([facility]) [facility], Third Floor [address] [place] [phone] Social History Tobacco Use Types Packs/Day Years [...] or relatives? How often do you attend restorationist or Never 2021 amish services? Do you belong to any clubs or No 07/17/2021 organizations such as restorationist groups, unions, fraternal or athletic groups, or [...] or the highest technical, or vocational p [employer] degree you have received? Sex Assigned at Date Recorded Female 04/12/2021 7:39 PM REPORTING ANALYST documented as of this encounter Last Filed [...] AM CDT DISCHARGE SUMMARY BRIEF OVERVIEW Hospital: [facility] Discharge Provider: Jody Aguilar M.B. Primary Care [...] DISCHARGE RECOMMENDATIONS - recommend establishing care with [place] PCP to centralize care FOR PCP - [...] 18 Nicotine Dependence 11/28/2021 1:30 PM LAB 01 FB Laboratory Medicine 01/21/2022 12:15 PM Matthew Jerome M.B.B.S., MCee. Gastroenterology and Hepatology For appointment details [...] She was transferred via EMS to the [facility] Emergency Department. On arrival she was [...] AM CDT You were discharged from the [facility] Gastroenterology A Service. Please identify this service name if you call with questions after hospitalization. AttachmentsThe following attachments cannot be sent through Care Everywhere. Diclofenac (On the skin) (Bahraini)Lidocaine Patch (On the skin) (Bahraini) Sulfamethoxazole/Trimethoprim (By mouth) (Bahraini)documented in this encounter Medications at Time of [...] Medical Care - Home Health Care Name: [facility] Office Contact: Nurse How do we reach your agency on a weekend/holiday? [phone] ( FYI unavailable to re-start services on [...] directive. PRIMARY SERVICE: - Please provide a non-[place] home health order for: halfway care, medication management in the After Visit [...] and minimize these if possible in the half-way. We have discontinued gabapentin and also her [...] Magic Cup supplements available. Danie albright requested technical report writer order her some apple slices and [...] -13 kg Estimated Needs: Total Calorie Needs: 2139-9050 calories/day Method to Estimate Energy Needs: Mueller-Dow (Basal to Basal + 20% (HB +20- [...] about patient's nutritional care please contact pager [phone] on weekdays or [phone] on weekends/holidays. Jody Aguilar M.B., B.Chir. - [...] and minimize these if possible in the longwall headgate operator. We have discontinued gabapentin and also [...] Bergeron M.D. - 11/25/2021 6:14 AM CDT [facility] Gastroenterology A PROGRESS NOTE SUBJECTIVE Ms. Carias [...] / PLAN Ms. Carias is hospitalized on [facility] Gastroenterology A for evaluation and management of [...] Acute care monitoring needs Plan discussed with [facility] Gastroenterology A Bilingual Speech Therapist, Jody Hernandez M.B., who was present during judd portions of the evaluation today. Please page the [facility] [place] [phone] with any questions. Jody Aguilar M.B., B.Chir. [...] and minimize these if possible in the half-way. We have discontinued gabapentin and also her [...] / PLAN Ms. Carias is hospitalized on [facility] Gastroenterology A for evaluation and management of [...] Acute care monitoring needs Plan discussed with [facility] Gastroenterology A Bilingual Speech Therapist, Jody Hernandez MSumaBSuma, who was present during judd portions of the evaluation today. Please page the [facility] [place] [phone] with any questions. Dina Campa M.D. Internal [...] A, zincsupplementation. Paty Maynard, PharmD, [facility] [phone] Jody Aguilar M.B., B.Chir. - 11/23/2021 9:26 [...] and minimize these if possible in the half-way. We have discontinued gabapentin and also her [...] 22 2021. She went out to [facility] yesterday. She was talking in coherent [...] and minimize these if possible in the longwall headgate operator. We have discontinued gabapentin and also [...] and minimize these if possible in the half-way. We have discontinued gabapentin and also her [...] not eating. We are giving tube feeds OliverTiffanie - 11/20/2021 3:12 PM CDT Humanities in [...] Medicine and can be reached via pager [phone]. Session Information Music Therapy Time Spent (Min): 30 Music Therapy Patient Type: Adult Sweetie Carson M.S., RDN, LD - 11/20/2021 2:56 PM [...] antibiotics, spironolactone, thiamine 100 mg, vitamin A 05771 units Mon Wed, zinc sulfate 220 mg Pertinent Labs: [...] 0 kg Estimated Needs: Total Calorie Needs: 8761-3614 calories/day Method to Estimate Energy Needs: Mueller-Dow (Basal to Basal + 10%) Weight Used [...] about patient's nutritional care please contact pager [phone] on weekdays or [phone] on weekends/holidays. Jody Aguilar M.B., Umu. - [...] and minimize these if possible in the longwall headgate operator. We have discontinued gabapentin and also [...] Medical Care - Home Health Care Name: [facility] Office Contact: Nurse How do we reach your agency on a weekend/holiday? [phone] ( FYI unavailable to re-start services on [...] directive. PRIMARY SERVICE: - Please provide a non-[place] home health order for: halfway care, medication management in the After Visit [...] if needs arise. Shala Meyer, M.S.W. 11/20/21 Dina Campa M.D. - 11/20/2021 6:48 AM [...] / PLAN Ms. Carias is hospitalized on [facility] Gastroenterology A for evaluation and management of [...] Vitamin and mineral supplements Plan discussed with [facility] Gastroenterology A Bilingual Speech Therapist, Jody Hernandez M.B., who was present during judd portions of the evaluation today. Please page the [facility] [place] [phone] with any questions. Dina Campa M.D. Internal Medicine, PGY-2 Hima Messer M.D. - 11/19/2021 12:30 PM CDT SUBJECTIVE Interim developments since the initial psychiatric consult and subsequent follow-up were reviewed prior to meeting with Ms. Carias who tells me she is at [facility] in [place], [place] and it is 2021 (as she [...] contact the psychiatry consult service pager at [phone]. Hima Messer M.D. 11/19/2021 Nabila Maynard, Pharm.D., [...] Nutrition: On tube feeds. All meds via Everlater. Paty Maynard, PharmD, [facility] [phone] Jody Aguilar M.B., B.Chir. - 11/19/2021 9:44 [...] and minimize these if possible in the half-way. We have discontinued gabapentin and also her [...] Guerrier M.D. - 11/18/2021 5:19 PM CDT [facility] Palliative Care Consultation Service Progress Note [...] for having the Palliative Medicine team A ([phone]) participate in the care of this patient. [...] team, and can be reached via pager [phone]. Session Information Music Therapy Time Spent (Min): [...] prevacid, spironolactone, thiamine 100 mg, vitamin A 57778 units Wed, zinc sulfate 220 mg Pertinent [...] 0 kg Estimated Needs: Total Calorie Needs: 5422-0826 calories/day Method to Estimate Energy Needs: Mueller-Dow (Basal to Basal + 10%) Weight Used [...] about patient's nutritional care please contact pager [phone] on weekdays or [phone] on weekends/holidays. Jody Aguilar M.B., B.Chir. - [...] and minimize these if possible in the longwall headgate operator. We have discontinued gabapentin and also [...] / PLAN Ms. Carias is hospitalized on [facility] Gastroenterology A for evaluation and management of [...] Please contact the primary service pager - [phone] with any questions. Electronically signed by: Gerard Andino M.D. Internal Medicine PGY-2 11/18/21 10:21 AM CDT Ben Geurrier M.D. - 11/17/2021 4:41 PM CDT SUBJECTIVE [...] of this patient. Ben Guerrier M.D. Ciara Salcedo RDN, LD - 11/17/2021 2:23 PM CDT Clinical [...] 0 kg Estimated Needs: Total Calorie Needs: 4265-4153 calories/day Method to Estimate Energy Needs: Mueller-Dow (Basal to Basal + 10%) Weight Used [...] about patient's nutritional care please contact pager [phone] on weekdays or [phone] on weekends/holidays. Tiffanie Boyd - 11/17/2021 1:00 [...] musical preferences. He shared their love for [place], and classic [place] songs were played to promote relaxation and coping support. Christelle gave a smile in response to Toy Storysong, and mouthed the words to You'll Be in My Heart. Lobito expressed appreciation for music therapy support. Music therapy will continue to be available to support Christelle as a part of the Palliative Medicine team, and can be reached via pager [phone]. Session Information Music Therapy Time Spent (Min): [...] and minimize these if possible in the longwall headgate operator. We have discontinued gabapentin and also [...] 8:00 AM CDT Neurology Consult Note Supervising Bilingual Speech Therapist: Dr. Renee Gale Service pager: [phone] SUBJECTIVE Referral [facility] Consult question: Alternative neurological explanation for [...] progressively more confused. She was transferred to [facility] on 11/12. Initially on presentation the [...] Friends and Family: Twice a week Attends Denominational Services: Never Active Member of Clubs or [...] to page the Neurology Consult pager at [phone] with any questions or concerns and we [...] and minimize these if possible in the longwall headgate operator. We have discontinued gabapentin and also [...] of the Neurology consult Service. Examined in [place] [address] room 251. Neuro: While her eyes were [...] follow. Please page the Neurology Consult Service ([phone]) with any questions. Total time 25 min. DIAGNOSES #1 Hepatic encephalopathy #2 Decompensated alcoholic liver disease #3 Rule out nonconvulsive seizures Gisel Edwards M.D. - 11/15/2021 2:47 PM CDT Neurology Consult Note Supervising Bilingual Speech Therapist: Dr. Renee Gale Service pager: [phone] SUBJECTIVE Referral [facility] Consult question: Alternative neurological explanation for [...] progressively more confused. She was transferred to [facility] on 11/12. Initially on presentation the [...] Friends and Family: Twice a week Attends Denominational Services: Never Active Member of Clubs or [...] injection 5,000 Units, 5,000 Units, subcutaneous, Q8H [facility], Dina Campa M.D., 5,000 Units at 11/15/21 1333 lactulose solution 20 g (CHRONULAC), 20 g, gastric tube, TID, Gerard Andino M.D., M.S., 20 g at 11/15/21 1333 lansoprazole suspension 30 mg (PREVACID), 30 mg, gastric tube, Daily before breakfast, Harish Schulz M.D., 30 mg at 11/15/21 0620 rifAXIMin sugar-free suspension 550 mg (XIFAXAN), 550 mg, gastric tube, BID, Ranadl Covarrubias, Pharm.D., R.Ph., 550 mg at 11/15/21 0854 [...] to page the Neurology Consult pager at [phone] with any questions or concerns and we [...] and minimize these if possible in the longwall headgate operator. We have discontinued gabapentin and also [...] 71.9 kg (11/12/2021) Current Weight: 71.9 kg [place] Body Weight (Calculated) : 51.4 kg BMI [...] 61.6 kg Estimated Needs: Total Calorie Needs: 0977-7274 calories/day Method to Estimate Energy Needs: Mueller-Dow (Basal to Basal + 10%) Weight Used [...] formula, 1500 calories, and 68 gm protein, [id number]% of Dietary Reference Intake for vitamins/minerals weston [...] about patient's nutritional care please contact pager [phone] on weekdays or [phone] on weekends/holidays. Gerard Andino M.D., M.S. - [...] / PLAN Ms. Carias is hospitalized on [facility] Gastroenterology A for evaluation and management of hepatic encephalopathy in the setting of lactulose noncompliance. Her encephalopathy has resolved with appropriate administration of lactulose and bowel movement resumption. She is nonverbal at the moment but alert. Derrek not think this is hospital sales representative of hepatic encephalopathy and is rather [...] Please contact the primary service pager - [phone] with any questions. Electronically signed by: Gerard [...] tryand minimize these if possible in the longwall headgate operator. We have discontinued gabapentin and also [...] she does not know anyhing about her methodist. Family: Family members were not present Maria De Jesus/Tradition: The patient's methodist is unknown Plan: Will remain available for spiritual care as needed or requested. Chaplains can be contacted bypaging [phone] ([facility]) or [phone] ([place]). Jody Aguilar M.B., B.Chir. - 11/13/2021 10:05 [...] tryand minimize these if possible in the half-way. We will discontinue gabapentin and also decrease [...] / PLAN Ms. Carias is hospitalized on [facility] Gastroenterology A for evaluation and management of [...] Please contact the primary service pager - [phone] with any questions. Electronically signed by: Gerard [...] COVID therapies indicated. Evon Rodriguez Pharm.D., R.Ph. [phone] documented in this encounter H&P Notes Jody [...] tryand minimize these if possible in the longwall headgate operator. #2 Ascites This is still present. #3 History of acute kidney injury Repeat creatinine is still in a normal range at 0.7. #4 Marijuana use Gerard Andino M.D., M.S. - 11/12/2021 3:38 AM CDT [facility] Gastroenterology A Admission Note REFERRAL SOURCE: [facility] Emergency Department PRIMARY CARE PROVIDER: Primary [...] She was transferred via EMS to the [facility] Emergency Department. On arrival, patient reportedly [...] including alcoholic cirrhosis who is hospitalized on [facility] Gastroenterology A for evaluation and management of [...] will be formally staffed with GI A java consultant Dr. Aguilar in the morning. Please see the supervisory note for further details. Please contact the primary service pager - [phone] with any questions. Electronically signed by: Gerard [...] follow. Please page the Neurology Consult Service ([phone]) with any questions. DIAGNOSES #1 Hepatic encephalopathy [...] sign off. Rest per Dr. Winston's note. Joshua VerdugoD. CT CT Job ID: [id number] Milagros Patel L.G.S.W., M.S.W. - 11/15/2021 11:03 [...] home nursing to help with medications with [facility] Care. Social work will reconnect to services. Lobito appreciates regular medical updates. OBJECTIVE Patient is hospitalized on [id number]. ASSESSMENT / PLAN ASSESSMENT Patient not appropriate to assess. Patient significant other Lobito is a reliable historian. PLAN -social work submitted the reconnect to [facility] Health service. Danny Babin, M.S.W. 11/15/21 T Rachel Winston M.D. - 11/15/2021 9:11 AM CDT Psychiatry Consult Note Consult Question - encephalopathy and hallucination not explained by hepatic etiology, concern for catatonia RECOMMENDATIONS *Please refer to the java consultant's note for final recommendations* Patient's presentation [...] criteria at this time. SUBJECTIVE Referring team: T Gastroenterology A HISTORY OF PRESENT ILLNESS Ms. Catia Carias is a 31 y.o. female from [place], [place] who was admitted 11/12/2021 1:11 AM [...] Friends and Family: Twice a week Attends Denominational Services: Never Active Member of Clubs or [...] contact the C/L Psychiatry on-call service pager [phone] with any questions. Rachel Winston M.D. Reo Asset Manager Nessa Mcfarland M.D. - 11/14/2021 4:21 PM CDT [facility] Palliative Medicine MANAGER PHILOSOPHY/PA Collaborative Visit Note I have discussed the patient with Zenobia Nguyễn APRN/DAPHNEY. I have reviewed the pertinent history. I discussed the impression and plan with the MANAGER PHILOSOPHY/PA. I agree with the history, examination, impression, and recommendations as documented in today's note from the MANAGER PHILOSOPHY/PA except as documented below. Ms. Carias is [...] details per Ms. Nguyễn. Nessa Hannah M.D. enobia Melo APRN, C.N.P., M.S.N. - 11/14/2021 3:56 PM CDTAssociated Order(s): IP CONSULT TO PALLIATIVE CARE [facility] Palliative Medicine New Consult Note Patient: Catia Carias; 31 y.o.female Location: 251/251-P Date of Service: 11/14/2021 Time of Visit: 3:56 PM CDT Hospital Admission Date: 11/12/2021 1:11 AM Hospital Day: 2 Primary Cardiac Exercise Specialist: Jody Aguilar M.B., * Primary Care Provider: [...] have reviewed the patient???s record in the [place] Prescription Monitoring Program (ELECTROMECHANICAL TECHNICIAN) with no unexpected findings. The following portions [...] hesitate to contact us at service pager [phone]. It is our pleasure to have the opportunity to participate in Christelle's continued care. Thank you. Zenobia Nguyễn APRN, [facility] Center for Palliative Medicine documented in [...] lacking in appropriate nutritional intake. Wheelchair ride [facility] [employer] was offered as well as a shower and pt refused at this time. Problem: SAFETY ADULT Goal: Maintain a safe environment Outcome: Progressing Note: Pt transitioned to Video monitor from DC, as she has been appropriate in the [...] for catheter care to be done by WIND TURBINE DESIGN ENGINEER/IA. RN encouraged taking medications PO and reiterated [...] 11/22/21 Time initiated: 1819 Initiated by: Other (WIND TURBINE DESIGN ENGINEER in hallway with patient) ASSESSMENT: Patient is a 31 y.o. female admitted to [facility] for Change Mental Status. When this technical report writer was walking to a consultation Ms. Carias was ambulating in the hallway with her assigned WIND TURBINE DESIGN ENGINEER. Patient impulsively got up from wheelchair with no concern for the lines she was connected to. She was attempting to use the phone at the nurses station. Ms. Carias stated to an individual on the phone (possibly [place] braille duplicating machine operator), you need to come pick me up, when individual responded questioning her current location, she hung up the phone. When talking with the patient she was initially calm. Ms. Carias suddenly changed her facial expression and hit this technical report writer on the arm and stated, I'm scared. [facility] Security wascalled to assist. Patient's assigned [...] free to contact the ROSMERY RN at [phone], or in an emergent situation by activating the ROSMERY team through the hospital braille duplicating machine operator by dialing 911. eather Gerber R.N. - 11/21/2021 8:00 PM CDT This technical report writer making entry as this happened when I came on shift. Patient was assisted to the to betaken outside per service request. Pt was taken out to the courtyard by the WIND TURBINE DESIGN ENGINEER and boyfriend Bob.Immediately after going to the courtyard, the patient would not follow directions according to the WIND TURBINE DESIGN ENGINEER. WIND TURBINE DESIGN ENGINEER tried to get her to stay in her w/c and she would not comply. Pt got out of the w/c and laid in the grass. WIND TURBINE DESIGN ENGINEER hit her duress button on her badge [...] he is going to spend the night. Karolyn Rodriguez - 11/20/2021 5:32 PM CDT Problem: SAFETY [...] M.P.H. - 11/12/2021 3:22 AM CDT ED RESEARCH AND DEVELOPMENT DIRECTOR NOTE 31 year old female with h/o [...] a supervisoryrole. Rosaura Sevilla M.D., M.P.H. 11/17/21 6448 Rosaura Sevilla M.D., M.P.H. 11/17/21 0700 Titi Oswald M.D. - 11/12/2021 1:54 AM [...] Titi Oswald M.D. Resident 11/16/212325 Kindra Dickson REric. - 11/12/2021 1:48 AM CDT Patient presents to the [facility] via EMS for altered mental status. Patient was discharged yesterday from [facility] for hospitalization of hepatic encephalopathy. Patient's boyfriendcalled [...] coordinate the care. For questions, contact the [place] Covid Care Team (CCT): Pager: [phone] In basket: P [facility] COVID-19 POSITIVE Covid Care e-consult NOTE: At the time of testing, patients are instructed to obtain the result by calling the dough result line or by checking their online services account. [facility] Course - Gerard Andino M.D., M.S. - [...] She was transferred via EMS to the [facility] Emergency Department. On arrival she was [...] Encounters Date Type Specialty Care Team Description [facility] Radiology Matthew Jerome 2 Encounter Tyrell Rodriguez M.D. [address] [place] [phone] [facility] Gastroenterology and Njchantell Matthew 2 Encounter Hepatology Tyrell Rodriguez M.D. [address] [place] [address] Surgery Gastroenterology and Matthew Jerome ESOPHAG OGASTRODUODENOSCOPY 2 Hepatology YVikBLilian Bedolla [address] [place] [address] Telemedicine Transplant 2 Lab Laboratory Medicine Karin, 2 Adeline Gannon M.D., Ph.D. [address] [place] [phone] Lab Laboratory Medicine Karin, 2 Adelnie Gannon M.D., Ph.D. [address] [place] [phone] Office Visit Transplant Karin, 2 Adeline Gannon M.D., Ph.D. [address] [place] [phone] Office Visit [facility] Internal [facility], 2 Medicine Vernell Perez [address] [place] [phone] Appointment Radiology Matthew Jerome 2 YJoshuaBSumaBGraeme, MJules [address] [place] [address] Appointment Gastroenterology and Adrianne, 2 Hepatology Yue Burciaga M.D. [address] [place] [phone] Office Visit Gastroenterology and Mousa, Matthew 2 Hepatology JenniferTyrell M.D. [address] [place] [address] Appointment Radiology Matthew Jerome 2 Tyrell Rodriguez M.D. [address] [place] [address] Scheduled Procedures Name Priority Associated Diagnoses Date/Time ESOPHAGOGASTRODUODENOSCOPY Cirrhosis Alc oholic (HCC) 02/10/2022 8:45 AM CDT Hypertension Portal (HCC) Scheduled Referrals Name Type Priority Associated Diagnoses Order [facility] Outpatient Referral Routine Cirrhosis Alcoholic Ordered: [...] M.S. LAB URINE ORDERABLES Performing Organization Address City/[facility] Phon e Number [facility] [address] pH, Urine (11/26/2021 6:59 AM CDT) P athologist Signature pH, U 6.3 4.5 - 8.0 11/26/2021 8:06 DTL AM CDT Specimen Anatomical Collection Method Collection Time Receive d Time (Source) Location / / Volume Laterality Urine 11/26/2021 6:59 AM 2 7:15 CDT AM CDT Gerard Andino M.D., M.S. LAB URINE ORDERABLES Performing Organization Address City/[facility] Phon e Number [facility] - [address] Osmolality, Urine (11/26/2021 6:59 AM CDT) P athologist Signature Osmolality, U 325 150 - 1150 11/26/2021 DTL mOsm/kg 8:06 AM CDT Specimen Anatomical Collection Method Collection Time Receive d Time (Source) Location / / Volume Laterality Urine 11/26/2021 6:59 AM 2 7:15 CDT AM CDT Gerard Andino M.D., M.S. LAB URINE ORDERABLES Performing Organization Address City/[facility] Phon e Number [facility] - [address] (ABNORMAL) Microscopic Automated (11/26/2021 6:59 AM CDT) [...] M.S. LAB URINE ORDERABLES Performing Organization Address City/[facility] Phon e Number [facility] - 200 [place], [place] [address] [facility] [address] Bacterial Culture, Aerobic + Susc, Urine [...] - GENERAL O RDERABLES Performing Organization Address City/[facility] Phon e Number [facility] - [address] [place], [place] [id number] [place] [address] (ABNORMAL) Urinalysis with Microscopic: Urine, Midstream (11/26/2021 6:59 AM CDT) [facility] Method Time Signature Source Urine, Urine, 11/26/2021 [...] Urine (Urine, 11/26/2021 6:59 AM 11/27/19 22 7:15 Midstream) CDT AM CDT Gerard Andino M.D., M.S. LAB URINE ORDERABLES Performing Organization Address City/[facility] Code Phon e Number [facility] - 200 [place], [place] [address] [address] [place] [address] Abdomen Pelvis with IV Contrast [...] M.D. LAB BLOOD ADD-ON Performing Organization Address City/[facility] Phon e Number [facility] - [address] Magnesium (11/25/2021 6:55 AM CDT) athologist Signature Magnesium, S 1.7 1.7 - 2.3 11/25/2021 DTL mg/dL 7:54 AM CDT Specimen Anatomical Collection Method Collection Time Receive d Time (Source) Location / / Volume Laterality Blood (Blood, 11/25/2021 6:55 AM 11/26/19 22 7:33 Venous) CDT AM CDT Dina Campa M.D. LAB BLOOD ADD-ON Performing Organization Address City/[facility] Phon e Number [facility] - [address] (ABNORMAL) Basic Metabolic Panel (11/25/2021 6:55 [...] Address City/State/ZIP Code Phon e Number [facility] - [address] [place], [place] [address] [facility] [place] [address] Laboratories-[facility] [address] (ABNORMAL) CBC with Differential, Blood (11/25/2021 6:55 AM CDT) [facility] gist Method Time Signature Hemoglobin 7.5 [...] Blood (Blood, 11/25/2021 6:55 AM 11/26/19 22 7:18 Venous) CDT AM CDT Dina Campa M.D. LAB BLOOD ADD-ON Performing Organization Address City/State/ZIP Code Phon e Number [facility] - [address] [place], [place] [address] [facility] [place] [address] [facility] [address] DX Abdomen Portable [...] with Differential, Blood (11/24/2021 10:39 AM CDT) [facility] Method Time Signature Hemoglobin 8.4 (L) 11.6 [...] Address City/State/ZIP Code Phon e Number [facility] - 200 [place], [place] [address] [facility] [place] [address] [facility] [address] [facility] (ABNORMAL) Basic Metabolic Panel (11/23/2021 6:01 AM [...] Laterality Blood (Blood, 11/23/2021 6:01 AM 11/24/19 7:43 Venous) CDT AM CDT Gerard Andino M.D., M.S. LAB BLOOD ADD-ON Performing Organization Address City/[facility] Phon e Number [facility] - 200 [place], [place] [address] [place], [place] [id number] [place] [address] (ABNORMAL) CBC without Differential (11/23/2021 6:01 AM CDT) [facility] Method Time Signature Hemoglobin 7.3 (L) 11.6 [...] M.S. LAB BLOOD ADD-ON Performing Organization Address City/[facility] Code Phon e Number [facility] - 200 [place] [address] [facility] [place] [address] (ABNORMAL) Dipstick, Urine (11/21/2021 6:42 PM CDT) [facility] Method Time Signature Hemoglobin, Large (A) Negative [...] PM 2 7:03 CDT PM CDT Jovanna eBrgeron M.D. LAB URINE ORDERABLES Performing Organization Address City/[facility]/ZIP [facility] Phon e Number [facility] - 200 [place], [place] [address] [facility] [address] Osmolality, Urine (11/21/2021 6:42 PM CDT) athologist Signature Osmolality, U 433 150 - 1150 11/21/2021 DTL mOsm/kg 7:58 PM CDT Specimen Anatomical Collection Method Collection Time Receive d Time (Source) Location / / Volume Laterality Urine 11/21/2021 6:42 PM 2 7:03 CDT PM CDT Jovanna Bergeron M.D. LAB URINE ORDERABLES Performing Organization Address City/[facility]/ZIP Code Phon e Number [facility] - 200 [place], [place] [address] [facility] [place] [address] pH, Random, Urine (11/21/2021 6:42 PM CDT) P athologist Signature pH, Random, U 6.5 4.5 - 8.0 11/21/2021 DTL 7:58 PM CDT Specimen Anatomical Collection Method Collection Time Receive d Time (Source) Location / / Volume Laterality Urine 11/21/2021 6:42 PM 2 7:03 CDT PM CDT Jovanna Bergeron M.D. LAB URINE ORDERABLES Performing Organization Address City/[facility]/ZIP Code Phon e Number [facility] 200 [place] [address] [facility] [place] [place] [address] Laboratories-[address] (ABNORMAL) Microscopic Manual (11/21/2021 6:42 PM [...] Organization Address City/State/ZIP Code Phon e Number [place] [address] 05 [place] [address] [facility]-[address] (ABNORMAL) Urinalysis with Microscopic: Urine, Catheter [...] M.D. LAB URINE ORDERABLES Performing Organization Address [facility] Phon e Number [facility] - [address] Bacterial Culture, Aerobic + Susc, Urine (11/21/2021 6:41 PM CDT) [facility] gist Method Time Signature Urine Culture No growth 11/23/2021 DTL after 1 day 6:50 AM CDT of incubation. Specimen (Source) Anatomical Collection Method Collection Time Re ceived Time Location / / Volume Laterality Urine (Urine, 11/21/2021 6:41 11/21/2021 9:34 Indwelling PM CDT PM CDT Catheter) Comment: Specimen Source Site: Urine Jovanna Bergeron M.D. LAB MICROBIOLOGY - GENERAL O RDERABLES Performing Organization Address City/[facility] Phon e Number [address] (ABNORMAL) SPSMA Result (11/21/2021 11:25 AM CDT) Analysis Performed At [facility] logist Time Signature Neutrophilic Segs 84 (H) [...] Reviewed by: Ruth 11/21/2021 1:07 PM CDT [facility] Specimen Anatomical Collection Method Collection Time Receive d Time (Source) Location / / Volume Laterality Blood (Blood, 11/21/2021 11:25 11/21/2021 Venous) AM CDT 12:03 PM CDT Shannan Rand M.D. LAB BLOOD ADD-ON Performing Organization Address City/[facility]/ZIP Code Phon e Number [facility] - [address] [place], [place] [address] [place] [address] Laboratories-[place] [address] [address] [facility] Pernicious Anemia [place] (11/21/2021 11:25 AM CDT) [facility] Vitamin B12 621 180 - 914 11/21/2021 [facility] Assay, S ng/L 6:21 PM CDT Specimen Anatomical Collection Method Collection Time Receive d Time (Source) Location / / Volume Laterality Blood (Blood, 11/21/2021 11:25 11/21/2021 4:05 Venous) AM CDT PM CDT Dina Campa M.D. LAB BLOOD NON ADD-ON Performing Organization Address City/[facility] Phon e Number [facility] [address] [place], [place] [address] [facility] [place] [address] Laboratory Medicine and Pathology [address] [place] (ABNORMAL) Cystatin C with Estimated GFR, S (11/21/2021 11:25 AM CDT) [facility] e[facility] by 60 (L) >60 11/21/2021 DTL [...] Address City/State/ZIP Code Phon e Number [facility] - [address] [place], [place] [address] [facility] [place] [address] Laboratories-[facility] [address] (ABNORMAL) Comprehensive Metabolic [...] Address City/State/ZIP Code Phon e Number [facility] - [address] [place], [place] [address] [facility] [place] [place] [address] Laboratories-[facility] [address] (ABNORMAL) CBC with Differential, Blood (11/21/2021 11:25 AM CDT) [facility] Method Time Signature Hemoglobin 8.4 (L) 11.6 [...] Address City/State/ZIP Code Phon e Number [facility] - [address] [place], [place] [address] [facility] [place] [place] [address] Laboratories-[facility] 200 [facility] Copper, 24 Hour, Urine (11/21/2021 11:00 AM [...] M.D. LAB URINE ORDERABLES Performing Organization Address [facility] Phon e Number [facility] [address] [place], [place] [address] [facility] [place] [address] Laboratory Medicine and Pathology [address] [...] at or the on-line test catalog at [employer] for m ore information. Specimen Anatomical Collection Method Collection Time Receive d Time (Source) Location / / Volume Laterality Blood (Blood, 11/20/2021 6:38 AM 11/21/19 8:33 Venous) CDT AM CDT Gerard Andino M.D., M.S. LAB BLOOD ADD-ON Performing Organization Address City/State/ZIP Code Phon e Number [facility] - [address] [place], [place] [address] [facility] [place] [address] Laboratories-[facility] [address] DX Abdomen Portable [...] BANK TEST ORDERABL ES Performing Organization Address City/[facility] Phon e Number [facility] - 200 [place], [place] [address] [facility] [place] [address] [facility] [address] Sedimentation Rate (11/19/2021 2:55 PM CDT) [...] Address City/State/ZIP Code Phon e Number [facility] - 200 [place], [place] [address] [facility] [place] [place] [address] Laboratories-[address] CRP (C-Reactive Protein) (11/19/2021 2:55 PM CDT) P athologist Signature C-Reactive 6.6 <=8.0 mg/L 11/19/2021 DTL Protein (CRP), 3:54 PM CDT S Specimen Anatomical Collection Method Collection Time Receive d Time (Source) Location / / Volume Laterality Blood (Blood, 11/19/2021 2:55 PM 11/20/19 3:29 Venous) CDT PM CDT Gerard Andino M.D., M.S. LAB BLOOD ADD-ON Performing Organization Address City/[facility] Phon e Number [facility] - 200 [place], [place] [address] [place] [address] Laboratories-[address] (ABNORMAL) CBC without Differential (11/19/2021 2:55 [...] M.S. LAB BLOOD ADD-ON Performing Organization Address City/[facility]/ZIP [facility] Phon e Number [facility] - [address] [place], [place] [address] [facility] [place] [address] [facility] 200 [facility] Bacteria / Raudel Culture, Blood #2 (11/19/2021 12:59 PM CDT) [facility] gist Method Time Signature Bacteria/Adriana No [...] - GENERAL O RDERABLES Performing Organization Address City/[facility] Phon e Number [facility] - 200 [place], [place] [address] [place] [address] [place], [place] [id number] [place] [address] Lactate, 3 hour draw (11/19/2021 12:45 PM CDT) P athologist Signature Lactate, P 1.3 0.5 - 2.2 11/19/2021 DTL mmol/L 2:16 PM CDT Specimen Anatomical Collection Method Collection Time Receive d Time (Source) Location / / Volume Laterality Blood (Blood, 11/19/2021 12:45 11/19/2021 1:46 Venous) PM CDT PM CDT Jovanna Bergeron M.D. LAB BLOOD NON ADD-ON Performing Organization Address City/[facility] Phon e Number [facility] - [address] [place], [place] [address] [facility] [place], [place] [phone] [place] [address] Bacteria / Raudel Culture, Blood #1 (11/19/2021 12:45 PM CDT) [facility]ist Method Time Signature Bacteria/Adriana No growth [...] - GENERAL O RDERABLES Performing Organization Address City/[facility]/ZIP Code Phon e Number [facility] [address] Phosphorus Inorganic (11/19/2021 7:13 AM CDT) athologist Signature Phosphorus 2.9 2.5 - 4.5 11/19/2021 DTL (Inorganic), S mg/dL 8:33 AM CDT Specimen Anatomical Collection Method Collection Time Receive d Time (Source) Location / / Volume Laterality Blood (Blood, 11/19/2021 7:13 AM 11/20/19 22 8:09 Venous) CDT AM CDT Gerard Andino M.D., M.S. LAB BLOOD ADD-ON Performing Organization Address City/[facility]/ZIP Code Phon e Number [facility] 200 [place] [address] 05 [place] [address] Magnesium (11/19/2021 7:13 AM CDT) athologist Signature Magnesium, S 1.8 1.7 - 2.3 11/19/2021 DTL mg/dL 8:33 AM CDT Specimen Anatomical Collection Method Collection Time Receive d Time (Source) Location / / Volume Laterality Blood (Blood, 11/19/2021 7:13 AM 11/20/19 22 8:09 Venous) CDT AM CDT Gerard Andino M.D., M.S. LAB BLOOD ADD-ON Performing Organization Address City/[facility]/ZIP Code Phon e Number [facility] - 200 [place], [place] [address] [facility] [place] [place] [address] [facility] [address] [facility] (ABNORMAL) Hepatic Function Panel (11/19/2021 7:13 [...] Address City/State/ZIP Code Phon e Number [facility] - [address] [place] [address] [facility] [place] [place] [address] [facility] [address] [facility] (ABNORMAL) Basic Metabolic Panel (11/19/2021 7:13 AM [...] Address City/State/ZIP Code Phon e Number [facility] - [address] [place], [place] [address] [facility] [place] [address] [facility] [address] (ABNORMAL) CBC with Differential, Blood (11/19/2021 7:13 AM CDT) [facility] Method Time Signature Hemoglobin 7.6 (L) 11.6 [...] Address City/State/ZIP Code Phon e Number [facility] - 200 [place], [place] [address] [facility] [place] [address] [facility] 200 [facility] [place] Paracentesis with Imaging Guidance (11/18/2021 [...] PROCEDURES Gram Stain (11/18/2021 3:29 PM CDT) [facility] Method Time Signature Gram Stain No organisms seen. 11/18/2021 DTL White blood cells present. 10:50 PM CDT Specimen (Source) Anatomical Collection Method Collection Time Re ceived Time Location / / Volume Laterality Peritoneal Fluid 11/18/2021 3:29 11/19/19 22 5:38 PM CDT PM CDT Narrative [facility] - 11/18/2021 10:50 PM CDT Bacterial Culture: Received Bactec aerob ic and Bactec anaerobic bottles Gerard Andino M.D., M.S. LAB MICROBIOLOGY - GENERAL O RDERABLES Performing Organization Address City/[facility] Phon e Number [facility] - 200 [place], [place] [address] [place] [address] [facility] [address] [facility] Bacterial Culture, Aerobic + Susc (11/18/2021 3:29 PM CDT) [facility] Method Time Signature Bacterial No growth 11/23/2021 DTL Culture, after 5 7:47 AM CDT Aerobic + Susc days of incubation. Specimen (Source) Anatomical Collection Method Collection Time Re ceived Time Location / / Volume Laterality Peritoneal Fluid 11/18/2021 3:29 11/19/19 22 5:38 PM CDT PM CDT Narrative [facility] - 11/23/2021 7:47 AM CDT Bacterial Culture: Received Bactec aerob ic and Bactec anaerobic bottles Gerard Andino M.D., M.S. LAB MICROBIOLOGY - GENERAL O RDERABLES Performing Organization Address City/[facility] Phon e Number [facility] - 200 [place], [place] [address] [facility] [place] [address] [facility] [address] [facility] Cell Count and Differential, Body Fluid (11/18/2021 3:29 PM CDT) [facility] Method Time Signature Fluid Type Peritoneal- 11/18/2021 [...] M.S. LAB BODY FLUIDS AND STOOLS O RDGRACE Performing Organization Address City/State/ZIP Code Phon e Number [facility] - 200 [place], [place] [address] [facility] [place] [address] [facility] [address] [facility] Phosphorus Inorganic (11/18/2021 8:56 AM CDT) P athologist Signature Phosphorus 2.7 2.5 - 4.5 11/18/2021 DTL (Inorganic), S mg/dL 10:11 AM CDT Specimen Anatomical Collection Method Collection Time Receive d Time (Source) Location / / Volume Laterality Blood (Blood, 11/18/2021 8:56 AM 11/19/19 22 9:52 Venous) CDT AM CDT Shannan Rand M.D. LAB BLOOD ADD-ON Performing Organization Address City/[facility] Phon e Number [facility] - 200 [place], [place] [address] [place] [address] [place] [address] Laboratories-[address] Magnesium (11/18/2021 8:56 AM CDT) athologist Signature Magnesium, S 2.1 1.7 - 2.3 11/18/2021 DTL mg/dL 10:11 AM CDT Specimen Anatomical Collection Method Collection Time Receive d Time (Source) Location / / Volume Laterality Blood (Blood, 11/18/2021 8:56 AM 11/19/19 22 9:52 Venous) CDT AM CDT Shannan Rand M.D. LAB BLOOD ADD-ON Performing Organization Address City/[facility] Phon e Number [facility] - 200 [place], [place] [address] [place] [id number] [place] [address] (ABNORMAL) Comprehensive Metabolic Panel (11/18/2021 8:56 AM [...] Address City/State/ZIP Code Phon e Number [facility] - [address] [place], [place] [address] [facility] [place] [address] [facility] [address] [facility] (ABNORMAL) CBC with Differential, Blood (11/18/2021 8:56 AM CDT) [facility] Method Time Signature Hemoglobin 9.7 (L) 11.6 [...] Address City/State/ZIP Code Phon e Number [facility] - [address] [place], [place] [address] [facility] [place] [address] [facility] [...] Rodriguez M.D. NEUROLOGY ORDERABLES Performing Organization Address City/[facility]/ZIP Code Phon e Number MMODAL MMODAL [...] Address City/State/ZIP Code Phon e Number [facility] - 200 [place], [place] [address] [facility] [place] [address] Laboratories[facility] [address] [facility] (ABNORMAL) CBC with Differential, Blood (11/16/2021 7:11 AM CDT) [facility] Method Time Signature Hemoglobin 7.7 (L) 11.6 [...] Address City/State/ZIP Code Phon e Number [facility] - [address] [place], [place] [address] [facility] [place] [address] Laboratories[facility] [address] MR Brain without [...] M.S. LAB URINE ORDERABLES Performing Organization Address City/[facility] Phon e Number [facility] - [address] (ABNORMAL) Ammonia (11/15/2021 6:14 AM CDT) P athologist Signature Ammonia, P 31 (H) <=30 11/15/2021 DT mcmol/L 7:00 AM CDT Specimen Anatomical Collection Method Collection Time Receive d Time (Source) Location / / Volume Laterality Blood (Blood, 11/15/2021 6:14 AM 11/16/19 6:36 Venous) CDT AM CDT Gerard Andino M.D., M.S. LAB BLOOD NON ADD-ON Performing Organization Address City/State/[facility] Phon e Number [facility] - [address] [place], [place] [address] [place] [address] Phosphorus Inorganic (11/15/2021 6:14 AM CDT) athologist Signature Phosphorus 2.5 2.5 - 4.5 11/15/2021 DTL (Inorganic), S mg/dL 7:16 AM CDT Specimen Anatomical Collection Method Collection Time Receive d Time (Source) Location / / Volume Laterality Blood (Blood, 11/15/2021 6:14 AM 11/16/19 22 7:02 Venous) CDT AM CDT Gerard Andino M.D., M.S. LAB BLOOD ADD-ON Performing Organization Address City/[facility] Phon e Number [facility] - 200 [place], [place] [address] [place] [address] Laboratories-[address] Magnesium (11/15/2021 6:14 AM CDT) athologist Signature Magnesium, S 2.1 1.7 - 2.3 11/15/2021 DTL mg/dL 7:16 AM CDT Specimen Anatomical Collection Method Collection Time Receive d Time (Source) Location / / Volume Laterality Blood (Blood, 11/15/2021 6:14 AM 11/16/19 7:02 Venous) CDT AM CDT Gerard Andino M.D., M.S. LAB BLOOD ADD-ON Performing Organization Address City/[facility] Code Phon e Number [facility] - [address] [place], [place] [address] [place] [id number] [place] [address] (ABNORMAL) Hepatic Function Panel (11/15/2021 6:14 AM [...] Address City/State/ZIP Code Phon e Number [facility] - [address] [place], [place] [address] [facility] [place] [address] Laboratories-[facility] [address] (ABNORMAL) Basic Metabolic Panel (11/15/2021 6:14 AM [...] Blood (Blood, 11/15/2021 6:14 AM 11/16/19 22 6:52 Venous) CDT AM CDT Gerard Andino M.D., M.S. LAB BLOOD ADD-ON Performing Organization Address City/State/[facility] Code Phon e Number [facility] - [address] [place], [place] [address] [facility] [place] [place] [address] [facility] 200 [facility] (ABNORMAL) CBC without Differential (11/15/2021 6:14 AM CDT) [facility] gist Method Time Signature Hemoglobin 7.8 [...] M.S. LAB BLOOD ADD-ON Performing Organization Address City/[facility]/ZIP Code Phon e Number [facility] - [address] [place], [place] [address] [place] [id number] [facility] 200 [facility] Phosphorus Inorganic (11/14/2021 9:00 PM CDT) athologist Signature Phosphorus 2.6 2.5 - 4.5 11/14/2021 DTL (Inorganic), S mg/dL 10:55 PM CDT Specimen Anatomical Collection Method Collection Time Receive d Time (Source) Location / / Volume Laterality Blood (Blood, 11/14/2021 9:00 PM 11/15/19 9:46 Venous) CDT PM CDT Gerard Andino M.D., M.S. LAB BLOOD ADD-ON Performing Organization Address City/[facility]/ZIP Code Phon e Number [facility] - [address] [address] [facility] [address] [facility] Magnesium (11/14/2021 9:00 PM CDT) athologist Signature Magnesium, S 1.8 1.7 - 2.3 11/14/2021 DTL mg/dL 10:55 PM CDT Specimen Anatomical Collection Method Collection Time Receive d Time (Source) Location / / Volume Laterality Blood (Blood, 11/14/2021 9:00 PM 11/15/19 9:46 Venous) CDT PM CDT Gerard Andino M.D., M.S. LAB BLOOD ADD-ON Performing Organization Address City/State/ZIP Code Phon e Number [facility] - [address] Potassium (11/14/2021 9:00 PM CDT) P athologist Signature Potassium, S 4.1 3.6 - 5.2 11/14/2021 DTL mmol/L 10:55 PM CDT Specimen Anatomical Collection Method Collection Time Receive d Time (Source) Location / / Volume Laterality Blood (Blood, 11/14/2021 9:00 PM 11/15/19 9:46 Venous) CDT PM CDT Gerard Andino M.D., M.S. LAB BLOOD ADD-ON Performing Organization Address City/[facility] Phon e Number [facility] - [address] [place], [place] [address] [address] [place], [place] [id number] [place] [address] (ABNORMAL) Hepatic Function Panel (11/14/2021 6:56 AM [...] M.S. LAB BLOOD ADD-ON Performing Organization Address City/[facility] Phon e Number [facility] - [address] [place], [place] [address] [place] [address] (ABNORMAL) Basic Metabolic Panel (11/14/2021 6:56 AM [...] Address City/State/ZIP Code Phon e Number [facility] - [address] [place], [place] [address] [facility] [place] [address] [facility] [address] (ABNORMAL) CBC without Differential (11/14/2021 6:56 AM CDT) [employer] Method Time Signature Hemoglobin 9.1 (L) 11.6 [...] Address City/State/ZIP Code Phon e Number [facility] - [address] [place] [address] [facility] [place] [place] [address] [facility] 200 [facility] SARS Coronavirus 2, Antigen, Rapid, V Asymptomatic (11/13/2021 9:45 AM CDT) [facility] Method Time Signature SARS CoV-2, Undetected Undetected [...] us ing the SARS-CoV-2 Ag Test from [employer], which has received Emergency U se Authorization (EUA) by the U.S. Food and Drug Administration. Fact sheets for this Emergency Use Autho rization (EUA) assay can be found at the following links: For Healthcare Providers: https://www.[employer]/assets/images/n ew/pdf/ntd-qvv-kfvu-mprkk-xtgyeltw-c jdy-idq-8-ag-test.pdf?v=4 For Patients: https://www.[employer]/assets/images/n ew/pdf/wkc-yjwypaz-tiqc-sheet-lumira yp-nbzj-dfd-2-eopzjkq-ngno.pdf?v=5 SARS CoV-2, Antigen, Rapid, Swab, Nasopharynx 10/31 9:54 AM CDT [facility] Source Specimen Anatomical Collection Method Collection Time Receive d Time (Source) Location / / Volume Laterality Varies 11/13/2021 9:45 AM 9:54 (Nasopharynx) CDT AM CDT Gerard Andino M.D., M.S. LAB [facility]OLOGY - [facility] Performing Organization Address City/State/ZIP Code Phon e Number [facility] - [address] [place] [address] [place] [address] [facility] [address] [facility] (ABNORMAL) Hepatic Function Panel (11/13/2021 6:19 AM CDT) [facility] Method Time Signature Bilirubin, Total, S 16.8 [...] Address City/State/ZIP Code Phon e Number [facility] - [address] [place], [place] [address] [facility] [place] [place] [address] [facility] [address] [facility] (ABNORMAL) Basic Metabolic Panel (11/13/2021 6:19 [...] Address City/State/ZIP Code Phon e Number [facility] - [address] [place], [place] [address] [facility] [place] [place] [address] [facility] [address] [facility] (ABNORMAL) CBC without Differential (11/13/2021 6:19 AM CDT) [facility] gist Method Time Signature Hemoglobin 7.9 [...] Address City/State/ZIP Code Phon e Number [facility] - [address] [place], [place] [address] [facility] [place] [address] [facility] [address] DX Abdomen Portable [...] HEAD WITHOUT IV CONTRAST COMPARISON: Compared to [facility] head CT fro m 03/21/2021. FINDINGS: [...] HEAD WITHOUT IV CONTRAST COMPARISON: Compared to [facility] head CT fro m 03/21/2021. FINDINGS: [...] Rapid, V Symptomatic (11/12/2021 3:44 AM CDT) [facility] Method Time Signature SARS CoV-2, Detected (A) Undetected 11/12/2021 [facility] PCR, Rapid, V 4:20 AM CDT Comment: ----ADDITIONAL INFORMATION---- This RT-PCR test was performed using the Daniel SARS-CoV-2 and Influenza A/B Reagent assay from [employer], which has received Emergency Use Authori zation(EUA) by the U.S. Food and Drug Administration . Fact sheets for this Emergency Use Autho rization (EUA) assay can be found at the following link s: For Healthcare Providers: https://www.fda.gov/media/595825/downloa d For Patients: https://www.fda.gov/media/448040/downloa d SARS Coronavirus 2, Source, Rapid Swab, Nasopharynx 11/12/2021 3:48 AM CDT [facility] Specimen Anatomical Collection Method Collection Time Receive d Time (Source) Location / / Volume Laterality Varies 11/12/2021 3:44 AM 3:48 (Nasopharynx) CDT AM CDT Rosaura Sevilla M.D., M.P.H. LAB MICROBIOLOGY - GENERA L ORDERABLES Performing Organization Address City/[facility]/ZIP Code Phon e Number [facility] - [address] [place] [address] Drug Screen Urine (11/12/2021 3:19 AM CDT) [facility] Method Time Signature Ethanol, Negative NEGATIVE 11/12/2021 [...] Address City/State/ZIP Code Phon e Number [facility] - [address] [place] [address] [facility] [place] [address] Peripheral Venous Access (11/12/2021 1:58 AM CDT) Titi Valdez M.D. - 10/31 1:58 AM CDT Titi [...] Prothrombin Time (PT) (11/12/2021 1:54 AM CDT) [facility] Method Time Signature Prothrombin 37.4 (H) 9.4 [...] LAB BLOOD ADD-ON Performing Organization Address City/State/ZIP [facility] Phon e Number [facility] - [address] [place], [place] [address] [facility] [place] [address] [facility] [address] [facility] (ABNORMAL) APTT (Activated Partial Thromboplastin Time) (11/12/2021 [...] M.D. LAB BLOOD ADD-ON Performing Organization Address City/[facility]/ZIP [facility] Phon e Number [facility] - [address] [place], [place] [address] [facility] [place] [address] [place] [address] [address] [facility] Ethanol Level, Serum (11/12/2021 1:54 AM CDT) [...] Address City/State/ZIP Code Phon e Number [facility] - [address] [place], [place] [address] [facility] [place] [address] [facility] [address] [facility] S-TSH (Thyroid-Stimulating Hormone - Sensitive) (11/12/2021 1:54 [...] Address City/State/ZIP Code Phon e Number [facility] - [address] [place], [place] [address] [facility] [place] [address] [facility] [address] (ABNORMAL) Basic Metabolic Panel (11/12/2021 1:54 AM [...] City/State/[facility] Code Phon e Number [facility] - [address] [place], [place] [address] [facility] [place] [address] [facility] [address] [place] [address] [facility] [address] (ABNORMAL) Hepatic Function Panel (11/12/2021 1:54 AM CDT) [facility] gist Method Time Signature Bilirubin, Total, [...] 11/13/19 2:40 Venous) CDT AM CDT Titi G Rolando-Grace M.D. LAB BLOOD ADD-ON Performing Organization Address City/[facility] Phon e Number [facility] - [address] [place], [place] [address] [facility] [place] [address] Laboratories-[address] hCG (Human Chorionic Gonadotropin), Quantitative, (11/12/2021 1:54 AM CDT) P athologist Signature HCG, 0.5 <5 IU/L 11/12/2021 [facility] Quantitative, 2:17 AM CDT , P Specimen Anatomical Collection Method Collection Time Receive d Time (Source) Location / / Volume Laterality Blood (Blood, 11/12/2021 1:54 AM 11/13/19 1:59 Venous) CDT AM CDT Authorizing Provider Result Woodrow Oswald M.D. LAB BLOOD ADD-ON Performing Organization Address [facility] Phon e Number [facility] - [address] [place] [address] [facility]-[address] (ABNORMAL) CBC with Differential, Blood (11/12/2021 1:54 AM CDT) [facility] Method Time Signature Hemoglobin 8.7 (L) [...] City/State/[facility] Code Phon e Number [facility] - [address] [place], [place] [address] [facility] [place] [address] [facility] [address] [place] [address] [facility] [address] (ABNORMAL) Ammonia (11/12/2021 [...] City/State/[facility] Code Phon e Number [facility] - [address] [place], [place] [address] [facility] [place] [address] [facility] [address] Lactate, POCT (11/12/2021 1:54 AM CDT) Analysis Performed At Patho logist Time Signature Lactate, POCT Collected DEFAULT 11/12/2021 SMLX 1:54 AM CDT Specimen Anatomical Collection Method Collection Time Receive d Time (Source) Location / / Volume Laterality Blood (Blood, 11/12/2021 1:54 AM 11/13/19 1:54 Venous) CDT AM CDT Titi Oswald M.D. LAB POCT ORDERABLES - DEVICE Performing Organization Address City/[facility]/ZIP Code Phon e Number [facility] - [address] [place], [place] [address] [facility] [place] [address] [facility] [address] Venous Blood Gas and [...] POCT ORDERABLES - DEVICE Performing Organization Address City/[facility] Code Phon e Number [facility] - [address] [place], [place] [address] [facility] [place] [address] [facility] [address] [facility] Lactate, POCT (11/12/2021 1:52 AM CDT) P athologist Signature Lactate, POCT 2.19 0.50 - 11/12/2021 PCLX 2.20 2:04 AM CDT mmol/L Sample Site, Venstick 11/12/2021 PCLX POCT 2:04 AM CDT Specimen Anatomical Collection Method Collection Time Receive d Time (Source) Location / / Volume Laterality Blood 11/12/2021 1:52 AM 2:04 CDT AM CDT Unknown Provider LAB POCT ORDERABLES - DEVICE Performing Organization Address City/[facility]/ZIP Code Phon e Number [facility] [address] [place] [address] PCLX [facility] [place] [address] [place] [facility] [address] [facility] (ABNORMAL) Venous Blood Gas and Electrolytes [...] POCT ORDERABLES - DEVICE Performing Organization Address [facility] Phon e Number POC [facility] [address] [place], [place] [address] LABS [place], [place] [id number] [place] [address] [place] [address] (ABNORMAL) CRP (C-Reactive Protein) (11/11/2021 4:28 AM CDT) P athologist Signature C-Reactive 9.4 (H) <=8.0 mg/L 11/12/2021 DTL Protein (CRP), 7:43 AM CDT S Specimen Anatomical Collection Method Collection Time Receive d Time (Source) Location / / Volume Laterality Blood (Blood, 11/11/2021 4:28 AM 11/13/19 22 7:26 Venous) CDT AM CDT Gerard Andino M.D., M.S. LAB BLOOD ADD-ON Performing Organization Address City/[facility] Phon e Number [facility] - [address] [place], [place] [address] [facility] [place] [address] [facility] [address] [facility] documented in this encounter Visit Diagnoses [...] Every 8 hours scheduled, First dose on 11/18/21 at 2200 Given 11/25/2021 9:23 PM CDT 5,000 Units Right Upper Abdomen Given 11/25/2021 1:02 PM CDT 5,000 Units Left Upper Arm (Back) HYDROmorphone (PF) injection 0.2 mg Given 11/25/2021 5:49 AM CDT 0.2 mg (DILAUDID) 0.2 mg, intravenous, Once, On e 11/25/21 at 0545, For 1 dose HYDROmorphone tablet 1 mg (DILAUDID) Given 11/25/2021 8:11 AM CDT 1 mg 1 mg, oral, Once, On 11/25/21 at 0800, For 1 dose iohexoL 350 mg iodine/mL solution 1-200 mL Given 11/25/2021 10:2 2 AM CDT 50 mL (OMNIPAQUE) 1-200 mL, intravenous, Once in imaging, contrast, Starting on e 11/25/21 at 1015, For 1 dose, Imaging Protocol [...] over 1 Hours, Once, On 11/22/21 at 1445, For 1 dose lactated Ringer's [...] breakfast, First dose (after last modification) on Luz Marina 11/13/21 at 0800, For 27 doses, Doses listed [...] (Ne w Bag - Provider: [place] Toribio R.N.) 50 g, intravenous, Once, On Wed11/24/21 at 1400, For 1 dose, If no infusion rate specified: Administer the 25% solution at 100 mL/hr diclofenac sodium 1 % gel 2 g (VOLTAREN) 7597 (Given - Provider: Jo Ann Stevens RGabby) 0930 (Given - Provider: Deja Langford RSumaNSuma)1329 (Not Given - Provider: Deja Langford RSumaN. - Reason: Other) 2 g, topical, 4 [...] (LASIX) 1015 (Given - Provider: Aye Toribio R.N.) 0811 (Given - Provider: Deja Langford R.N.) 0924 (Given - Provider: Deja Langford R.N.) 40 mg, oral, Daily, First dose (after last modificatio n) on Wed11/24/21 at 1015 heparin (porcine) injection 5,000 Units 0531 (Not Give n - Provider: Heather Andrea R.N. - Reason: Patient/family refused)1503 (Given - Provider: [place] Toribio RSumaN.)2245 (Not Given - Provider: Jo Ann Stevens R.N. - Reason: Patient/family refused) 0549 (Given - Provider: Jo Ann hanley R.N.)1302 (Given - Provider: Deja Langford R.N.)2123 (Given - Provider: Amy Zaragoza R.N.) 0609 (Given - Provider: Jo Ann hanley R.N.) 5,000 Units, subcutaneous, Every 8 hours scheduled, First dose on Wed11/18/21 at 2200 HYDROmorphone (PF) injection 0.2 mg (DILAUDID) (COMPLETED) 0549 (Given - Provider: Jo Ann Stevens R.NSuma) 0.2 mg, intravenous, Once, On Wed11/25/21 at 0545, For 1 dose HYDROmorphone tablet 1 mg (DILAUDID) (COMPLETED) 0811 (Given - Provider: Deja E Probert, R.N.) 1 mg, oral, Once, On Wed11/25/21 at 0800, For 1 dose lactulose solution 10 g (CHRONULAC) (CANCELED) 1013 (G iven - Provider: [place] Toribio R.N.) 10 g, gastric tube, 3 times daily, First dose (after last modification) on Wed11/18/21 at 2100 lactulose solution 10 g (CHRONULAC) 1506 (Not Given - Provider: Andrew AcostaN. - Reason: Other - Comment: 6 bm's)203 (Not Given - Provider: Jo Ann Stevens R.N. - Reason: Contraindicated) 0812 (Not Given - Provider: Deja Langford, R.N. - Reason: Contraindicated - Comment: bm goal met)1302 (Given - Provider: Deja Langford R.N.)2123 (Given - Provider: Amy Zaragoza RGabby) 0924 (Given - Provider: eDja Langford, R.N.) 10 g, oral, 3 times daily, First dose (a fter last modification) on Wed11/24/21 at 1400 lidocaine 5 % 1 patch (LIDODERM) 2358 (M edication Applied - Provider: Jo Ann Stevens R.N.) 1157 (Medication Removed - Provider: Anat Langford, R.N.) 1 patch, transdermal, Administer over 12 Hours, Daily at bedtime, First dose on Wed11/25/21 at 2330, Remove after 12 hours. multivitamin/mineral- tablet 1 tablet 1016 (Gi ekaterina - Provider: [place] Toribio R.N.) 0811 (Given - Provider: Deja Langford, R.N.) 0924 (G iven - Provider: Deja Langford R.NSuma) 1 tablet, oral, Daily, First dose (after last modification) on Wed11/24/[address] tablet 40 mg (PROTONIX) 0550 (Not Given - Provider: Jo Ann Stevens R.N. - Reason: Other) 0609 (Given - Provider: Jo Ann D Olso n, R.N.) 40 mg, oral, Daily before breakfast, Fir st dose on Wed11/25/21 at 0700, Swallow whole. Do NOT crush, chew, or split tablet. rifAXIMin tablet 550 mg (XIFAXAN) 1020 (Given - Provid er: [place] Toribio RGabby)2037 (Given - Provider: Jo Ann Stevens RSumaN.) 0811 (Given - Provider: Deja Langford, R.N.)2122 [...] (ALDACTONE) 1201 (Given - Provider: [place] Toribio R.N.) 0811 (Not Given - Provider: Deja son R.N. - Reason: See Provider Order - Comment: held per provider due to hypotension) 0924 (Given - Provider: Deja Langford, R.N.) 100 mg, oral, Daily, First dose (after l ast modification) on Wed11/24/21 at 1115 thiamine tablet 100 mg (VITAMIN B1) 1016 (Given - Prov ider: [place] Toribio R.Sera.) 0811 (Given - Provider: Deja Langford, R.N.) 0924 (G iven - Provider: Deja Lnagford, R.N.) 100 mg, oral, Daily, First dose [...] 0924 (Tristan parkeren - Provider: Deja Langford RGabby) 220 mg, oral, Daily with breakfast, Firs t dose (after last modification) on Wed11/24/21 at 1015, For 15 doses, Doses listed in zinc sulfate. Each 220 mg of zinc sulfate contains 50 mg of elemental zinc. PRN Medication Order 11/24/2021 11/25/2021 11/26/2021 iohexoL 350 mg iodine/mL solution 1-200 mL (OMNIPAQUE) (COMP LETED) 1022 (Given - Provider: Perri Mcintyre RGabby) 1-200 mL, intravenous, Once in imaging, contrast, [...] 0020 (Given - Provider: [place] nat[place] Stevens R.NSuma) 5 mg, oral, Bedtime PRN, sleep, Starting [...] contact. simethicone chewable tablet 80 mg (MYLICON) 3986 (Given - Provider: Jo Ann Stevens R.N.) 80 mg, oral, 4 times daily PRN, flatulence, Starting on 11/25 at 2316 documented in this encounter Additional Health Concerns Infection Onset Date Last Indicated Resolved Time COVID19 Pending 11/12/2021 11/12/2021 11/12/2021 4:20 AM CDT [id number]: Patients who are NOT sev erely immunocompromised: Asymptomatic - At least 10 days have passed since the date of the first positive PCR test 11/12/2021 11/12/2021 11/13/2021 3:19 PM CDT and Patient has remained asymptomatic throughout their infection Assessment Noted Time PHQ-9 Depression Total Score: 10 10/06/2021 5:00 PM CD T documented as of this encounter Care Teams Director Commercial Sales Relationship Specialty Start Date End Date Elsewhere, Pcp PCP - General Family Medicine 03/10/20 11/30/21 [facility] 08/25/21 Ervin Schroeder MD Referring Provider Family Medicine 03/24/[address] [place] [id number] documented as of this encounter
--- OUTSIDE RECORDS SUMMARY | 2022-02-04 23:13 | XMS_ITS | Encounter Summary ---
:1990 Author Organization [facility] Address [address] [place] [address] Care Team Providers Name Role Phone Elsewhere, Pcp Primary Care Provider Unavailable Reason for Referral Outpatient (Routine) - Authorized Specialty Diagnoses / Procedures Referred By Contact Refer red To Contact Nicotine Dependence Diagnoses Abuse Tobacco Smoking Ervin Schroeder [place] M.D. [address] [place] [address] Referral ID Status Reason Start Date Expiration Date Visits V isits Requested Authorized [id number] Authorized 11/26/2021 11/26/2022 1 1 Encounter Details Date Type Department Care Team Description 11/14/2021 [facility] Ervin Schroeder Tobacco Smoking (Primary Dx); AND CLINICS TOBY Schaefer M.D. Unspecified Cirrhosis Of Liver (HCC) CLINIC 1999 [facility] [address] [place], [place] [address] [phone] Social History Tobacco Use Types Packs/Day Years [...] do you attend zoroastrianism or Never 2021 sikh services? 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 [address] [place] [phone] Telemedicine Transplant 2 Lab Laboratory Medicine Karin, 2 Adeline Gannon M.D., Ph.D. [address] [place] [phone] Lab Laboratory Medicine Karin, 2 Adeline Gannon M.D., Ph.D. [address] [place] [phone] Office Visit Transplant Karin, 2 Adeline Gannon M.D., Ph.D. [address] [place] [phone] Office Visit [facility], 2 Medicine Vernell Perez [address] [place] [phone] Appointment Radiology [place]chantell, Matthew 2 Tyrell Rodriguez, Lilian [address] [place] [phone] Appointment Gastroenterology and Adrianne, 2 Hepatology Yue Burciaga M.D. [address] [place] [phone] Office Visit Gastroenterology and Matthew Jerome 2 Hepatology YTyrell M.D. [address] [place] [phone] Appointment Radiology LuisMatthew abdul 2 YTyrell M.D. [address] [place] [phone] Scheduled Procedures Name Priority Associated Diagnoses Date/Time [...] as of this encounter Care Teams General Assembler Relationship Specialty Start Date End Date Elsewhere, Pcp PCP - General Family Medicine 03/10/20 11/30/21 [facility] [place] [facility] 08/25/21 Ervin Schroeder MD Referring Provider Family Medicine 03/24/[address] [place] [address] documented as of this encounter
--- OUTSIDE RECORDS SUMMARY | 2022-02-04 23:13 | XMS_ITS | Encounter Summary ---
:1990 Author Organization [facility] Address [address] [place] [address] Care Team Providers Name Role Phone Elsewhere, Pcp Primary Care Provider Unavailable Encounter Details Date Type Department Care Team Description 11/18/2021 Clinical Communication [facility] PRE/POS T Alina Carranza R, [address] [place] [address] [phone] Social History Tobacco Use Types Packs/Day Years [...] do you attend temple or Never 2021 nondenominational services? 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 - 11/18/2021 8:53 AM CDT Hi Chaparrita Reddingfer is scheduled for an EGD with you on 11/24/21. She tested positive for covid on 11/09/21. Also, she is currently an inpatient in [place]. If you have concerns, please notify patient andscheduling. Thank you. documented in this encounter Plan of Treatment Upcoming Encounters Date Type Specialty Care Team Description Hospital Radiology Matthew Jerome 2 Encounter Tyrell Rodriguez M.D. [address] [place] [phone] [facility] Gastroenterology and Matthew Jerome 2 Encounter Hepatology Tyrell Rodriguez M.D. [address] [place] [address] Surgery Gastroenterology and Matthew Jerome ESOPHAG OGASTRODUODENOSCOPY 2 Hepatology Vik RodriguezBLilian Bedolla [address] [place] [address] Telemedicine Transplant 2 Lab Laboratory Medicine Karin, 2 Adeline Gannon M.D., Ph.D. [address] [place] [phone] Lab Laboratory Medicine Karin, 2 Adeline Gannon M.D., Ph.D. [address] [place] [phone] Office Visit Transplant Karin, 2 Adeline Gannon M.D., Ph.D. [address] [place] [phone] Office Visit [facility], 2 Medicine Vernell Perez [address] [place] [phone] Appointment Radiology Matthew Jerome 2 Jennifer MSumaB.B.SLilian Moise [address] [place] [address] Appointment Gastroenterology and Adrianne, 2 Hepatology Yue Burciaga M.D. [address] [place] [phone] Office Visit Gastroenterology and Matthew Jerome 2 Hepatology Tyrell Rodriguez, Lilian [address] [place] [phone] Appointment Radiology Matthew Jerome 2 Tyrell Rodriguez, Lilian [address] [place] [phone] Scheduled Procedures Name Priority Associated Diagnoses Date/Time ESOPHAGOGASTRODUODENOSCOPY Cirrhosis Alc oholic (HCC) 02/10/2022 8:45 AM CDT Hypertension Portal (HCC) documented as of this encounter Visit Diagnoses Not on filedocumented in this encounter Additional Health Concerns Assessment Noted Time PHQ-9 Depression Total Score: 10 10/06/2021 5:00 PM CD T documented as of this encounter Care Teams Compensation Intern Relationship Specialty Start Date End Date Elsewhere, Pcp PCP - General Family Medicine 03/10/20 11/30/21 [facility] [place] [facility] 08/25/21 Ervin Schroeder MD Referring Provider Family Medicine 03/24/[address] [place] [phone] documented as of this encounter
--- OUTSIDE RECORDS SUMMARY | 2022-02-04 23:14 | XMS_ITS | Encounter Summary ---
:1990 Author Organization [facility] Address [address] [place] [address] Care Team Providers Name Role Phone Elsewhere, Pcp Primary Care Provider Unavailable Reason for Visit Reason Comments Edema Encounter Details Date Type Department Care Team Description 10/13/2021 Nurse Triage [facility] Department of Nola Polanco R .N. [facility] Family Medicine and Residency in [place], [place] [address] [place] [phone] Social History Tobacco Use Types Packs/Day [...] do you attend jain or Never 2021 oriental orthodox services? 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 - 10/13/2021 11:17 PM CDT Chief [...] or worsening Protocols used: LEG SWELLING AND [id number]-DS Care Advice Patient/Caregiver understands and will follow [...] Type Specialty Care Team Description Hospital Radiology [facility] 2 Encounter Tyrell Rodriguez M.D. [address] [place] [phone] Hospital Gastroenterology and [facility] 2 Encounter Hepatology Tyrell Rodriguez M.D. [address] [place] [phone] Surgery Gastroenterology and [facility] ESOPHAG OGASTRODUODENOSCOPY 2 Hepatology Tyrell Rodriguez M.D. [address] [place] [phone] Telemedicine Transplant 2 Lab Laboratory Medicine Olinda Frazier M.D., Ph.D. [address] [place] [phone] Lab Laboratory Medicine Olinda Frazier M.D., Ph.D. [address] [place] [phone] Office Visit Transplant Olinda Frazier M.D., Ph.D. [address] [place] [phone] Office Visit [facility] Internal [facility], 2 Solitario Perez P.A.-C. [address] [place] [phone] Appointment Radiology Matthew Jerome 2 YJoshuaBSmuaB.SLilian Moise [address] [place] [phone] Appointment Gastroenterology and Adrianne 2 Hepatology Yue Burciaga M.D. [address] [place] [phone] Office Visit Gastroenterology and Matthew Jerome 2 Hepatology Joshua RodriguezBSumaBLilian Bedolla [address] [place] [phone] Appointment Radiology Matthew Jerome 2 YJoshuaB.B.Lilian [place] [address] [place] [phone] Scheduled Procedures Name Priority Associated Diagnoses Date/Time ESOPHAGOGASTRODUODENOSCOPY Cirrhosis Alc oholic (HCC) 02/10/2022 8:45 AM CDT Hypertension Portal (HCC) documented as of this encounter Visit Diagnoses Not on filedocumented in this encounter Additional Health Concerns Assessment Noted Time PHQ-9 Depression Total Score: 10 10/06/2021 5:00 PM CD T documented as of this encounter Care Teams Greeter Guest Services Relationship Specialty Start Date End Date Elsewhere, Pcp PCP - General Family Medicine 03/10/20 11/30/21 [facility] [place] [facility] 08/25/21 Ervin Schroeder MD Referring Provider Family Medicine 03/24/[address] [place] [address] documented as of this encounter
--- OUTSIDE RECORDS SUMMARY | 2022-02-04 23:14 | XMS_ITS | Encounter Summary ---
:1990 Author Organization [facility] Address [address] [place] [address] Care Team Providers Name Role Phone Elsewhere, Pcp Primary Care Provider Unavailable Reason for Visit Reason Comments Fatigue Encounter Details Date Type Department Care Team Description 10/17/2021 Nurse Triage Department of Laura Flor, Fatigue Medicine, [facility], R.N. in [facility] pedro [address] [facility] [address] [place], [place] [phone] Social History Tobacco Use Types Packs/Day Years [...] do you attend pentecostal or Never 2021 sikh services? 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 - 10/17/2021 9:43 PM CDT Chief Complaint / Reason for Call Patient is a 31 y.o. female calling regarding Fatigue. Assessment Concern: has not been feeling well the past 3 days. States thought was having a bad day due to cirrhosis, states has turned into a bad week. States does not feel well. in home nurse did not feel she needed to come in. States legs are swollen which is not new. overall does not feelwell, has been sleeping non-stop. is not having any symptoms out of [...] fever. Advised patient to go to PCP UC/SDC tomorrow, or could even call [place] [facility] tomorrow to make appointment, patient states, I'm [...] next 24 hours. Call your doctor (or TYPING CHECKER/PA) when the office opens and make an [...] 3 days Protocols used: WEAKNESS (GENERALIZED) AND [id number] documented in this encounter Plan of Treatment Upcoming Encounters Date Type Specialty Care Team Description [facility] Radiology [facility] 2 Encounter Tyrell Rodriguez M.D. [address] [place] [phone] [facility] Gastroenterology and [facility] 2 Encounter Hepatology Tyrell Rodriguez M.D. [address] [place] [phone] Surgery Gastroenterology and Matthew Jerome ESOPHAG OGASTRODUODENOSCOPY 2 Hepatology Vik RodriguezBLilian Bedolla [address] [place] [phone] Telemedicine Transplant 2 Lab Laboratory Medicine Karin, 2 Adeline Gannon M.D., Ph.D. [address] [place] [phone] Lab Laboratory Medicine Karin, 2 Adeline Gannon M.D., Ph.D. [address] [place] [phone] Office Visit Transplant Karin, Olinda Gannon M.D., Ph.D. [address] [place] [phone] Office Visit [facility], 2 Medicine Vernell Perez [address] [place] [phone] Appointment Radiology Matthew Jerome 2 Kishore Rodriguez.B.SLilian Moise [address] [place] [phone] Appointment Gastroenterology and Adrianne, 2 Hepatology Yue Burciaga M.D. [address] [place] [phone] Office Visit Gastroenterology and Matthew Jerome 2 Hepatology Vik RodriguezB.SLilian Moise [address] [place] [phone] Appointment Radiology Matthew Jerome 2 YTyrell M.D. [address] [place] [phone] Scheduled Procedures Name Priority Associated Diagnoses Date/Time ESOPHAGOGASTRODUODENOSCOPY Cirrhosis Alc oholic (HCC) 02/10/2022 8:45 AM CDT Hypertension Portal (HCC) documented as of this encounter Visit Diagnoses Not on filedocumented in this encounter Additional Health Concerns Assessment Noted Time PHQ-9 Depression Total Score: 10 10/06/2021 5:00 PM CD T documented as of this encounter Care Teams Graphics Intern Relationship Specialty Start Date End Date Elsewhere, Pcp PCP - General Family Medicine 03/10/20 11/30/21 [facility] [place] [facility] 08/25/21 Ervin Schroeder MD Referring Provider Family Medicine 03/24/[address] [place] [address] documented as of this encounter
--- OUTSIDE RECORDS SUMMARY | 2022-02-04 23:14 | XMS_ITS | Encounter Summary ---
:1990 Author Organization [facility] Address [address] [place] [address] Care Team Providers Name Role Phone Elsewhere, Pcp Primary Care Provider Unavailable Reason for Referral Transplant (Routine) - Closed Specialty Diagnoses / Procedures Referred By Contact Refer red To Contact Transplant Surgery / Joel Tan [facility] Transplant Shala, M.S.W. [address] [place] [address] Referral ID Status Reason Start Date Expiration Date Visits Requ ested Visits Authorized [id number] Closed 10/29/2021 10/29/2022 1 1 Scheduling Instructions Please schedule a 60 min visit for me to meet with the patient when she returns in the future for pre-transplant follow up. Thank you. Encounter Details Date Type Department Care Team Description 10/29/2021 Orders Only Department of Social Work Rajiv Tan, in [facility] Shala, M.S.W. 200 [facility] 200 [place] [phone] [place] [address] [phone] (Wo rk) Social History Tobacco Use Types [...] do you attend muslim or Never 2021 congregational services? 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 [address] [place] [phone] Surgery Gastroenterology and [facility], Matthew ESOPHAG OGASTRODUODENOSCOPY 2 Hepatology YTyrell, Lilian [address] [place] [phone] Telemedicine Transplant 2 Lab Laboratory Medicine Karin, 2 Adeline Gannon M.D., Ph.D. [address] [place] [phone] Lab Laboratory Medicine Karin, 2 Adeline Gannon M.D., Ph.D. [address] [place] [phone] Office Visit Transplant Karin, 2 Adeline Gannon M.D., Ph.D. [address] [place] [phone] Office Visit [facility], 2 Medicine Carlotta PerezCSuma [address] [place] [phone] Appointment Radiology [facility] 2 Y, Tyrell, Lilian [address] [place] [phone] Appointment Gastroenterology and Adrianne, 2 Hepatology Yue Burciaga M.D. [address] [place] [address] Office Visit Gastroenterology and Matthew Jerome 2 Hepatology Tyrell Rodriguez M.D. [address] [place] [phone] Appointment Radiology LuisMatthew abdul 2 Tyrell Rodriguez M.D. [address] [place] [address] Scheduled Procedures Name Priority Associated [...] Pending 11/12/2021 11/12/2021 11/12/2021 4:20 AM CDT [id number]: Patients who are NOT sev erely immunocompromised: Asymptomatic - At least 10 days have passed since the date of the first positive PCR test 11/12/2021 11/12/2021 11/13/2021 3:19 PM CDT and Patient has remained asymptomatic throughout their infection Assessment Noted Time PHQ-9 Depression Total Score: 10 10/06/2021 5:00 PM CD T documented as of this encounter Care Teams Billboard Erector Helper Relationship Specialty Start Date End Date Elsewhere, Pcp PCP - General Family Medicine 03/10/20 11/30/21 [facility] [place] [facility] 08/25/21 Ervin Schroeder MD Referring Provider Family Medicine 03/24/[address] [place] [address] documented as of this encounter
--- OUTSIDE RECORDS SUMMARY | 2022-02-04 23:14 | XMS_ITS | Encounter Summary ---
:1990 Author Organization [facility] Address [address] [place] [address] Care Team Providers Name Role Phone Elsewhere, Pcp Primary Care Provider Unavailable Reason for Visit Reason Comments Medication Question Encounter Details Date Type Department Care Team Description 10/13/2021 Nurse Triage Department of [facility] Jolynn Villarreal M edication Question Medicine, [facility], in [place], [place] (Work) [address] [place] [phone] Social History Tobacco Use Types Packs/Day Years [...] do you attend yazidi or Never 2021 sabianism services? 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 [address] [place] [address] Hospital Gastroenterology and [facility] 2 Encounter Hepatology YTyrell M.D. [address] [place] [address] Surgery Gastroenterology and [facility] ESOPHAG OGASTRODUODENOSCOPY 2 Hepatology YTyrell M.D. [address] [place] [address] Telemedicine Transplant 2 Lab Laboratory Medicine Karin, 2 Adeline Gannon M.D., Ph.D. [address] [place] [phone] Lab Laboratory Medicine Karin, 2 Adeline Gannon M.D., Ph.D. [address] [place] [phone] Office Visit Transplant Karin, 2 Adeline Gannon M.D., Ph.D. [address] [place] [phone] Office Visit [facility] Internal [facility], 2 Medicine Carlotta PerezC. [address] [place] [phone] Appointment Radiology [facility] 2 YTyrell, Lilian [address] [place] [address] Appointment Gastroenterology and Adrianne, 2 Hepatology Yue Burciaga M.D. [address] [place] [phone] Office Visit Gastroenterology and Matthew Jerome 2 Hepatology Tyrell Rodriguez, Lilian [address] [place] [phone] Appointment Radiology LuisMatthew abdul 2 Tyrell Rodriguez, Lilian [address] [place] [address] Scheduled Procedures Name Priority Associated Diagnoses Date/Time ESOPHAGOGASTRODUODENOSCOPY Cirrhosis Alc oholic (HCC) 02/10/2022 8:45 AM CDT Hypertension Portal (HCC) documented as of this encounter Visit Diagnoses Not on filedocumented in this encounter Additional Health Concerns Assessment Noted Time PHQ-9 Depression Total Score: 10 10/06/2021 5:00 PM CD T documented as of this encounter Care Teams Salvationist Relationship Specialty Start Date End Date Elsewhere, Pcp PCP - General Family Medicine 03/10/20 11/30/21 [facility] [place] [facility] 08/25/21 Ervin Schroeder MD Referring Provider Family Medicine 03/24/[address] [place] [phone] documented as of this encounter
--- OUTSIDE RECORDS SUMMARY | 2022-02-04 23:14 | XMS_ITS | Encounter Summary ---
:1990 Author Organization [facility] Address [address] [place] [address] Care Team Providers Name Role Phone Elsewhere, Pcp Primary Care Provider Unavailable Encounter Details Date Type Department Care Team Description 11/10/2021 Episode Changes [facility] Jack French, for Transplantation and [place] RSumaNSuma, Clinical Regeneration in [facility] [place], [place] [phone] [address] [facility] (Work) [place] [phone] Social History Tobacco Use Types Packs/Day [...] do you attend tenriism or Never 2021 alevism services? 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 [address] [place] [phone] Lab Laboratory Medicine Karin 2 Adeline Gannon M.D., Ph.D. [address] [place] [phone] Office Visit Transplant Karin, 2 Adeline Gannon M.D., Ph.D. [address] [place] [phone] Office Visit [facility], 2 Medicine Vernell Perez [address] [place] [phone] Appointment Radiology Matthew Jerome 2 Y M.B.B.SSuma, Lilian [address] [place] [phone] Appointment Gastroenterology and Adrianne 2 Hepatology Yue Burciaga M.D. [address] [place] [phone] Office Visit Gastroenterology and Matthew Jerome 2 Hepatology Jennifer M.B.B.SSuma, Lilian [address] [place] [phone] Appointment Radiology Matthew Jerome 2 Y M.B.B.SLilian Moise [address] [place] [phone] Scheduled Procedures Name Priority Associated Diagnoses Date/Time ESOPHAGOGASTRODUODENOSCOPY Cirrhosis Alc oholic (HCC) 02/10/2022 8:45 AM CDT Hypertension Portal (HCC) documented as of this encounter Visit Diagnoses Not on filedocumented in this encounter Additional Health Concerns Assessment Noted Time PHQ-9 Depression Total Score: 10/06/2021 5:00 PM CD T documented as of this encounter Care Teams Press Secretary Relationship Specialty Start Date End Date Elsewhere, Pcp PCP - General Family Medicine 03/10/20 11/30/21 [facility] [place] lab 08/25/21 Ervin Schroeder MD Referring Provider Family Medicine 03/24/[address] [place] [address] documented as of this encounter
--- OUTSIDE RECORDS SUMMARY | 2022-02-04 23:14 | XMS_ITS | Encounter Summary ---
:1990 Author Organization [facility] Address [address] [place] [address] Care Team Providers Name Role Phone Elsewhere, Pcp Primary Care Provider Unavailable Reason for Visit Reason Comments External Lab Entry 10/25/2021 Encounter Details Date Type Department Care Team Description 10/28/2021 Clinical Ramirez Nguyen Transplant, Rig Operator al Lab Entry Communication Center for Coordinator, (10/25/2021/) Transplantation and R.N. Clinical Regeneration in [facility] rotary drier [address] [place] [address] Social History Tobacco Use Types Packs/Day Years [...] do you attend baptism or Never 2021 druze services? 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 - 10/29/2021 1:45 PM CDT Noted Telephone Encounter - Matthew Jerome M.B.B.S., M.D. - 10/28/2021 11:36 PM CDT Thanks Laney I reviewed them, no further action is needed at this time. Matthew Telephone Encounter - Laney French M.A.N., VanessaSumaN., C.C.T.C. - 10/28/2021 8:01 AM CDT Please [...] C.C.TSumaC. *All labs are now found in [employer] - Lab - Flowsheets. For further review of labs, please review there or under Synopsis* documented in this encounter Plan of Treatment Upcoming Encounters Date Type Specialty Care Team Description Hospital Radiology [facility] 2 Encounter Tyrell Rodriguez M.D. [address] [place] [address] [phone] [facility] Gastroenterology and [facility] 2 Encounter Hepatology Tyrell Rodriguez, Lilian [address] [place] [address] [phone] Surgery Gastroenterology and [facility] ESOPHAG OGASTRODUODENOSCOPY 2 Hepatology Tyrell Rodriguez, Lilian [address] [place] [phone] Telemedicine Transplant 2 Lab Laboratory Medicine Olinda Frazier M.D., Ph.D. 200 [place] [phone] Lab Laboratory Medicine Olinda Frazier M.D., Ph.D. [address] [place] [phone] Office Visit Transplant Karin 2 Adeline Gannon M.D., Ph.D. [address] [place] [phone] Office Visit Community Internal [facility], 2 Medicine Vernell Perez [address] [place] [phone] Appointment Radiology Matthwe Jerome 2 YTyrell, Lilian [address] [place] [phone] Appointment Gastroenterology and [place], 2 Hepatology Yue Burciaga M.D. [address] [place] [phone] Office Visit Gastroenterology and Matthew Jerome 2 Hepatology Tyrell Rodriguez, Lilian [address] [place] [phone] Appointment Radiology Matthew Jerome 2 YVikBLilian Bedolla [address] [place] [phone] Scheduled Procedures Name Priority Associated Diagnoses Date/Time [...] documented as of this encounter Care Teams Airdrop Systems Technician Relationship Specialty Start Date End Date Elsewhere, Pcp PCP - General Family Medicine 03/10/20 11/30/21 [facility] [place] [facility] 08/25/21 Ervin Schroeder MD Referring Provider Family Medicine 03/24/[address] [place] [phone] documented as of this encounter
--- OUTSIDE RECORDS SUMMARY | 2022-02-04 23:14 | XMS_ITS | Encounter Summary ---
:1990 Author Organization [facility] Address [address] [place] [address] Care Team Providers Name Role Phone Elsewhere, Pcp Primary Care Provider Unavailable Encounter Details Date Type Department Care Team Description 10/15/2021 Documentation Department of Gastroenterology [place] in [place], Kaelyn Santillan M.D. 1025 [facility] [address] [place] [phone] [place], [place] [phone] Social History Tobacco Use Types Packs/Day [...] do you attend advent or Never 2021 cheondoism services? Do you belong to any clubs or No 07/17/2021 organizations such as advent groups, unions, [employer]Henry or athletic groups, or school groups? 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 PSC ? HCC ? HPS ? Budd Chiari ? FHF ? Biliary Atresia ? HCV ? PBC ? CCA ? PoPH ? Hemo-chromatosis ? PNF ? PFIC ? HBV ? AIH ? Neuro Endocrine Tumor ? FAP ? B0OH-Nmkhtrbdxd ? HAT ? Cystic Fibrosis ? MEJIA [...] on her own after a trip to [place] last July 2020, but could not remember why she decided to. Prior to that she had 4 episodes of recurrent pancreatitis. She states that the 1st illness she had was after a trip to [place] when she had abdominal pain and she [...] saline contrast injection. Patent foramen ovale with bbwpg-az-heer shunt , 20 or greater bubbles seen [...] Hospital Radiology [place] 2 Encounter Tyrell Rodriguez M.D. [address] [place] [phone] Hospital Gastroenterology and [place], Matthew 2 Encounter Hepatology Tyrell Rodriguez M.D. [address] [place] [phone] Surgery Gastroenterology and [facility], Matthew ESOPHAG OGASTRODUODENOSCOPY 2 Hepatology Tyrell Rodriguez M.D. [address] [place] [phone] Telemedicine Transplant 2 Lab Laboratory Medicine Olinda Frazier M.D., Ph.D. [address] [place] [phone] Lab Laboratory Medicine Olinda Frazier M.D., Ph.D. [address] [place] [phone] Office Visit Transplant Olinda Frazier M.D., Ph.D. [address] [place] [phone] Office Visit [facility], 2 Medicine Vernell Perez [address] [place] [phone] Appointment Radiology Luischantell Matthew 2 Y, Tyrell, Lilian [address] [place] [phone] Appointment Gastroenterology and [place], 2 Hepatology Yue Burciaga M.D. [address] [place] [phone] Office Visit Gastroenterology and Matthew Jerome 2 Hepatology Vik RodriguezBLilian Bedolla [address] [place] [phone] Appointment Radiology Matthew Jerome 2 Joshua RodriguezBSumaBLilian Bedolla [address] [place] [phone] Scheduled Procedures Name Priority Associated Diagnoses Date/Time ESOPHAGOGASTRODUODENOSCOPY Cirrhosis Alc oholic (HCC) 02/10/2022 8:45 AM CDT Hypertension Portal (HCC) documented as of this encounter Visit Diagnoses Not on filedocumented in this encounter Additional Health Concerns Assessment Noted Time PHQ-9 Depression Total Score: 10/06/2021 5:00 PM CD T documented as of this encounter Care Teams Network Applications Specialist Relationship Specialty Start Date End Date Elsewhere, Pcp PCP - General Family Medicine 03/10/20 11/30/21 [facility] [employer] lab 08/25/21 Ervin Schroeder MD Referring Provider Family Medicine 03/24/[address] [place] [phone] documented as of this encounter
--- OUTSIDE RECORDS SUMMARY | 2022-02-04 23:14 | XMS_ITS | Encounter Summary ---
:1990 Author Organization [facility] Address [address] [place] [address] Care Team Providers Name Role Phone Elsewhere, Pcp Primary Care Provider Unavailable Encounter Details Date Type Department Care Team Description 10/31/2021 Orders Only Department of Mousa, Matthew Y, Cirrhosis Al coholic ([facility]) (Primary Dx); Gastroenterology in Joshua Santillan. Defect Coagulation (HCC) [place], [place] 1025 [facility] 1025 [place] [phone] Social History Tobacco Use Types Packs/Day Years [...] do you attend mandaen or Never 2021 islam services? Do you belong to any clubs or No 07/17/2021 organizations such as mandaen groups, [employer], [employer] or athletic groups, or school groups? 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 [address] [place] [phone] Hospital Gastroenterology and [place], Matthew 2 Encounter Hepatology Tyrell Rodriguez M.D. [address] [place] [address] [phone] Surgery Gastroenterology and Mous[place], Matthew ESOPHAG OGASTRODUODENOSCOPY 2 Hepatology Tyrell Rodriguez M.D. [address] [place] [phone] Telemedicine Transplant 2 Lab Laboratory Medicine Olinda Frazier M.D., Ph.D. [address] [place] [phone] Lab Laboratory Medicine Karin 2 Adeline Gannon M.D., Ph.D. [address] [place] [phone] Office Visit Transplant Karin, 2 Adeline Gannon M.D., Ph.D. [address] [place] [phone] Office Visit Community Internal [facility], 2 Medicine Vernell Perez [address] [place] [phone] Appointment Radiology Matthew Jerome 2 Y M.B.B.SLilian Moise [address] [place] [phone] Appointment Gastroenterology and [place], 2 Hepatology Yue Burciaga M.D. [address] [place] [phone] Office Visit Gastroenterology and Matthew Jerome 2 Hepatology Jennifer M.B.B.SLilian Moise [address] [place] [phone] Appointment Radiology Matthew Jerome 2 Y M.B.B.SLilian Moise [address] [place] [phone] Scheduled Procedures Name Priority Associated Diagnoses Date/Time [...] documented as of this encounter Care Teams Mds Nurse Relationship Specialty Start Date End Date Elsewhere, Pcp PCP - General Family Medicine 03/10/20 11/30/21 [facility] [place] lab 08/25/21 Ervin Schroeder MD Referring Provider Family Medicine 03/24/[address] [place] [address] ADI Mejía [phone] documented as of this encounter
--- OUTSIDE RECORDS SUMMARY | 2022-02-04 23:14 | XMS_ITS | Encounter Summary ---
:1990 Author Organization [facility] Address [address] [place] [address] Care Team Providers Name Role Phone Elsewhere, Pcp Primary Care Provider Unavailable Reason for Visit Reason Comments Follow up on caregiver plan Encounter Details Date Type Department Care Team Description 10/17/2021 Clinical Ramirez Santana, Follow up on Communication Center for Joel Gannon, caregiver plan Transplantation and L.I.C.S.W., Clinical Regeneration M.S.W. in [place], [facility] [address] [place], [place] [address] [facility] [address] [place], [place] [phone] (Work) [phone] Social History Tobacco Use Types Packs/Day Years [...] No 07/17/2021 organizations such as hindu groups, [employer], [employer] or athletic groups, or school groups? How [...] or the highest technical, or vocational p [facility] degree you have received? 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 - 10/17/2021 2:03 PM CDT I [...] management per Radhames Neumann, Ph.D., L.P. ??in [place] Transplant Psychiatry (Pain Rehabilitation), 10/06/2021: - virtual [...] called the patient this afternoon (cell phone: [phone]) to attempt again follow up on her [...] Specialty Care Team Description Hospital Radiology [facility] 2 Encounter Tyrell Rodriguez M.D. [address] [place] [address] [phone] Hospital Gastroenterology and [facility] 2 Encounter Hepatology Tyrell Rodriguez M.D. [address] [place] [phone] Surgery Gastroenterology and [facility] ESOPHAG OGASTRODUODENOSCOPY 2 Hepatology Tyrell Rodriguez M.D. [address] [place] [address] [phone] Telemedicine Transplant 2 Lab Laboratory Medicine Karin, Olinda Gannon M.D., Ph.D. [address] [place] [address] [phone] Lab Laboratory Medicine Olinda Frazier M.D., Ph.D. [address] [place] [phone] Office Visit Transplant Olinda Frazier M.D., Ph.D. [address] [place] [phone] Office Visit [facility], 2 Medicine Vernell Perez [address] [place] [phone] Appointment Radiology Matthew Jerome 2 YElizabeth.B.B.SSuma, Lilian [address] [place] [address] [phone] Appointment Gastroenterology and [place], 2 Hepatology Yue Burciaga M.D. [address] [place] [phone] Office Visit Gastroenterology and Matthew Jerome 2 Hepatology Joshua RodriguezB.BSumaSLilian Moise [address] [place] [address] [phone] Appointment Radiology Matthew Jerome 2 Y M.B.B.SLilian Moise [address] [place] [address] [phone] Scheduled Procedures Name Priority Associated Diagnoses Date/Time ESOPHAGOGASTRODUODENOSCOPY Cirrhosis Alc oholic (HCC) 02/10/2022 8:45 AM CDT Hypertension Portal (HCC) documented as of this encounter Visit Diagnoses Not on filedocumented in this encounter Additional Health Concerns Assessment Noted Time PHQ-9 Depression Total Score: 10 10/06/2021 5:00 PM CD T documented as of this encounter Care Teams Forming Acid Dumper Relationship Specialty Start Date End Date Elsewhere, Pcp PCP - General Family Medicine 03/10/20 11/30/21 [facility] [place] lab 08/25/21 Ervin Schroeder MD Referring Provider Family Medicine 03/24/[address] [place] [phone] documented as of this encounter
--- OUTSIDE RECORDS SUMMARY | 2022-02-04 23:14 | XMS_ITS | Encounter Summary ---
:1990 Author Organization [facility] Address [address] [place] [address] Care Team Providers Name Role Phone Elsewhere, Pcp Primary Care Provider Unavailable Reason for Visit Reason Comments Nicotine Dependence Outpatient (Routine) - Closed Specialty Diagnoses / Procedures Referred By Contact Refer red To Contact Nicotine Dependence Jessy Crain M.A., C.T.T.S. [address] [place] [address] Referral ID Status Reason Start Date Expiration Date Visits Requ ested Visits Authorized [id number] Closed 10/01/2021 10/01/2022 1 1 Encounter Details Date Type Department Care Team Description 10/27/2021 Telemedicine Department of Yehuda Crain Dep endence Nicotine Dependence, Jessy Gannon M.A., Dylan arelars (Primary [facility], in C.T.T.S. Dx) [place], [place] [address] [facility] [address] [place] [phone] Social History Tobacco Use Types Packs/Day Years Used Date Smoking Tobacco: Former Cigarettes 1 12 05/2009 - 10/20/2021 Smokeless Tobacco: Never Comments: [...] do you attend sabianism or Never 2021 anabaptist services? 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 - 10/27/2021 9:00 AM CDT Follow-up visit conducted via real-time audio/video technology by Jessy Crain M.A., C.T.T.S. in [place], [place] at [facility] to the patient at home. OBJECTIVE Catai Carias attended a video follow-up appointment regarding [...] Health Services 2 Encounter Tyrell Rodriguez M.D. [address] [place] [address] [phone] [facility] Gastroenterology and [facility] [place] 2 Encounter Hepatology Tyrell Rodriguez M.D. [address] [place] [address] [phone] Surgery Gastroenterology and [facility] ESOPHAG OGASTRODUODENOSCOPY 2 Hepatology Vik RodriguezBLilian Bedolla [address] [place] [phone] Telemedicine Transplant 2 Lab Laboratory Medicine Karin, 2 Adeline Gannon M.D., Ph.D. [address] [place] [address] [phone] Lab Laboratory Medicine Karin, 2 Adeline Gannon M.D., Ph.D. [address] [place] [address] [phone] Office Visit Transplant Karin, 2 Adeline Gannon M.D., Ph.D. [address] [place] [address] [phone] Office Visit Community Internal [facility], 2 Medicine Vernell Perez [address] [place] [phone] Appointment Radiology Matthew Jerome 2, M.B.BLilian Bedolla [address] [place] [phone] Appointment Gastroenterology and [place], 2 Hepatology Yue Burciaga M.D. [address] [place] [phone] Office Visit Gastroenterology and Matthew Jerome 2 Hepatology Vik RodriguezBLilian Bedolla 1025 [place] [phone] Appointment Radiology MoMatthew abdul 2, M.B.B.S., Lilian [facility]5 [place] [phone] Scheduled Procedures Name Priority Associated [...] documented as of this encounter Care Teams Communication Professor Relationship Specialty Start Date End Date Elsewhere, Pcp PCP - General Family Medicine 03/10/20 11/30/21 [facility] [place] [facility] 08/25/21 Ervin Schroeder MD Referring Provider Family Medicine 03/24/[address] [place] [phone] documented as of this encounter
--- OUTSIDE RECORDS SUMMARY | 2022-02-04 23:14 | XMS_ITS | Encounter Summary ---
:1990 Author Organization [facility] Address [address] [place] [address] Care Team Providers Name Role Phone Elsewhere, Pcp Primary Care Provider Unavailable Reason for Visit Auth/Cert Specialty Diagnoses / Procedures Referred By Contact Refer red To Contact Diagnoses Hepatic Encephalopathy Without Coma (HCC) hepatic encephalopathy Procedures DIR Referral ID Status Reason Start Date Expiration Date Visits Requ ested Visits Authorized [id number] 1 1 Encounter Details Date Type Department Care Team Description 11/09/2021 - [facility] Ekta Rubi M.D., M.S. [address] [place] [phone] Hepatic [facility] Jody Aguilar M.B., B.Chir. [address] [place] [phone] Encephalopathy [facility], Without Coma ( HCC) [place] (Primary Dx) Building, Sixth Floor [address] [place] [phone] Social History Tobacco Use Types Packs/Day [...] do you attend sikhism or Never 2021 congregational services? Do you belong to any clubs or No 07/17/2021 organizations such as sikhism groups, unions, fraSkipo or athletic groups, or school groups? 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 Primary Care Provider at Discharge: Primary Care Providers: Elsewhere, Pcp (General) No address on file Primary Care Provider Phone Number: None Primary Care Provider Fax Number: None Primary Team: [facility] Gastroenterology A Admission Date: 11/09/2021 Discharge Date: [...] Appointments 11/19/2021 3:15 PM Matthew Jerome M.B.B.S., MCee. Gastroenterology and Hepatology 11/19/2021 4:00 PM LAB 01 [facility] Laboratory Medicine 11/26/2021 4:00 PM SHADI COUNSELOR 01 MERLYN 18 Nicotine Dependence For appointment details refer to your Patient Appointment Guide. TEST RESULTS PENDING AT DISCHARGE Pending Labs Order Current Status [facility] Result Collected (11/11/21 0952) Bacterial Culture, Aerobic [...] AM CDT You were discharged from the [facility] Gastroenterology A Service. Please identify this service name if you call with questions after hospitalization. AttachmentsThe following attachments cannot be sent through Care Everywhere.Zinc Sulfate (By mouth) (Comoran)documented in this encounter Medications at Time of [...] by mouth 0 100 mg tablet daily. lactulose (CHRONULAC) Take 15 mL (10 g 0 11/12/19 22 12/10/2021 10 gram/15 mL solution total) by mouth 3 (three) times a day. Titrate to 3 soft bowel movements daily oxyCODONE (ROXICODONE) Take 1 tablet (5 mg 9 tablet 0 10/3111/26/2021 5 mg immediate release total) by mouth 3 tabletIndications: (three) times a day Chronic Pain/Nonacute as needed for pain Pain for up to 3 days Indication: Chronic Pain/Nonacute Pain. ciprofloxacin (CIPRO) Take 1 tablet (500 mg [...] tablet mouth at bedtime as needed (sleep). magnesium oxide Take 1 tablet (400 mg 60 tablet 1 1 12/02/2021 (MAG-OX) 400 mg (241.3 total) by mouth 2 mg magnesium) tablet (two) times a day before breakfast and dinner. ondansetron ODT Dissolve 1 tablet in 0 04/23/2021 01/14/2022 (ZOFRAN-ODT) 8 mg the mouth 3 (three) disintegrating tablet times a day as needed for nausea or vomiting. rOPINIRole XL (REQUIP Take 2 mg by [...] COVID therapies indicated. Evon Rodriguez Pharm.D., R.Ph. [phone] documented in this encounter H&P Notes Jody [...] of medications for that. She hasCOVID last Marcela, but she denies any shortness of breath [...] [facility] Gastroenterology A Admission Note REFERRING FACILITY [facility] SUBJECTIVE CHIEF COMPLAINT Altered mental status, jaundice [...] / PLAN Ms. Carias is hospitalized on [facility] Gastroenterology A for evaluation and [...] seen and discussed with [facility] Gastroenterology A Natural Resources Engineer, Jo Ann Abbasi M.D.. Please see the supervisory note for further details. Please contact the primary service pager - [phone] with any questions. documented in this encounter [...] Type Specialty Care Team Description Hospital Radiology [facility] 2 Encounter Tyrell Rodriguez M.D. [address] [place] [address] [phone] Hospital Gastroenterology and [facility] 2 Encounter Hepatology Tyrell Rodriguez M.D. [address] [place] [phone] Surgery Gastroenterology and [facility] ESOPHAG OGASTRODUODENOSCOPY 2 Hepatology Tyrell Rodriguez M.D. [address] [place] [address] [phone] Telemedicine Transplant 2 Lab Laboratory Medicine Olinda Frazier M.D., Ph.D. [address] [place] [phone] Lab Laboratory Medicine Olinda Frazier M.D., Ph.D. [address] [place] [phone] Office Visit Transplant Olinda Frazier M.D., Ph.D. [address] [place] [phone] Office Visit [facility], 2 Solitario Perez P.A.-C. [address] [place] [phone] Appointment Radiology LuisMatthew abdul 2 YTyrell M.D. [address] [place] [phone] Appointment Gastroenterology and Adrianne, 2 Hepatology Yue Burciaga M.D. [address] [place] [phone] Office Visit Gastroenterology and QueenieMatthew 2 Hepatology Tyrell Rodriguez M.D. [address] [place] [phone] Appointment Radiology QueenieMatthew 2 YTyrell M.D. [address] [place] [address] [phone] Pending Results Name Type Priority Associated Diagnoses [...] Results SPSMA Result (11/11/2021 9:52 AM CDT) [facility] Method Time Signature Neutrophilic Segs 71 50 - 75 % 11/11/2021 [facility] 12:21 PM CDT Lymphocytes 25 18 - 42 % 11/11/2021 [facility] 12:21 PM CDT Monocytes 4 2 - 11 % 11/11/2021 [facility] 12:21 PM CDT Interpretation SeeComment 11/11/2021 [facility] 12:21 PM CDT Comment: No morphologic features of hemolysis are seen. Toxic changes and-or Dohle bodies are present; consider an infectio us process. Moderate acanthocytes present. Reviewed by: Tech 11/11/2021 12:21 PM CDT [facility] Specimen Anatomical Collection Method Collection Time Receive d Time (Source) Location / / Volume Laterality Blood (Blood, 11/11/2021 9:52 AM 11/12/19 Venous) CDT 10:47 AM CDT Tanmay Parker M.D. LAB BLOOD ADD-ON Performing Organization Address City/[facility] Phon e Number [facility] - [address] [place], [place] [address] [place] [address] [address] [facility] (ABNORMAL) Prothrombin Time (PT) (11/11/2021 4:31 AM CDT) [facility] Method Time Signature Prothrombin 35.2 (H) [...] M.S. LAB BLOOD ADD-ON Performing Organization Address City/[facility]/ZIP Code Phon e Number [facility] - 200 [place], [place] [address] [facility] [place] [address] [facility] 200 [facility] (ABNORMAL) Comprehensive Metabolic Panel (11/11/2021 4:31 AM [...] 11/11/2021 DTL Black/ mL/min/BSA 6:27 AM CDT [place] Comment: ----ADDITIONAL INFORMATION---- Estimated GFR calculated using [...] M.S. LAB BLOOD ADD-ON Performing Organization Address City/State/[facility] Code Phon e Number [facility] - [address] [place] [address] [facility] [address] [facility] 200 [facility] (ABNORMAL) CBC without Differential (11/11/2021 4:31 AM CDT) [facility] gist Method Time Signature Hemoglobin 7.4 (L) [...] City/State/ZIP Code Phon e Number [facility] - [address] [place], [place] [address] [facility] [place] [address] [facility] [address] Transfuse Red Blood [...] process. ?? All other fluids refer to [email or web address] for further interpretive information. This t est has been modified from the aquatics manager's instruc tions. Its performance characteristics were determi [...] City/State/ZIP Code Phon e Number [facility] - [address] [place], [place] [address] [place] [address] [facility] [address] Gram Stain (11/10/2021 2:32 PM CDT) Patholo gist Method Time Signature Gram Stain No organisms seen. 11/10/2021 DTL White blood cells present. 8:25 PM CDT Specimen Anatomical Collection Method Collection Time Receive d Time (Source) Location / / Volume Laterality Fluid 11/10/2021 2:32 PM 2 5:21 (Peritoneal CDT PM CDT Fluid) Comment: Specimen Source Site: Fluid Narrative [facility] - [facility] - 11/10/2021 8:25 PM CDT Bacterial Culture: Received Bactec aerob ic and Bactec anaerobic bottles Gerard Andino M.D., M.S. LAB MICROBIOLOGY - GENERAL O JOSE Performing Organization Address City/State/ZIP Code Phon e Number [facility] - [address] [place], [place] [address] [facility] [place] [address] [facility] [address] [facility] Protein, Total, Body Fluid (11/10/2021 2:32 PM [...] ical findings. All other fluids refer to [email or web address] for further inter pretive information. This test has been modified from the aquatics manager's instructions. Its perform ance characteristics were determined [...] City/State/ZIP Code Phon e Number [facility] - [address] [place], [place] [address] [facility] [place] [address] [facility] [address] Cell Count and Differential, Body Fluid (11/10/2021 2:32 PM CDT) [facility] Method Time Signature Fluid Type Peritoneal- 11/10/2021 [...] / Volume Laterality Fluid 11/10/2021 2:32 PM 07/11/202 2 3:47 (Peritoneal CDT PM CDT Fluid) Gerard Andino M.D., M.S. LAB BODY FLUIDS AND STOOLS O JOSE Performing Organization Address City/[facility] Phon e Number [facility] - 200 [place], [place] [address] [place] [address] [address] Bacterial Culture, Aerobic + Susc (11/10/2021 2:32 PM CDT) [facility] Method Time Signature Bacterial No growth 11/15/2021 DT Culture, after 5 9:17 AM CDT Aerobic + Susc days of incubation. Specimen Anatomical Collection Method Collection Time Receive d Time (Source) Location / / Volume Laterality Fluid 11/10/2021 2:32 PM 5:21 (Peritoneal CDT PM CDT Fluid) Comment: Specimen Source Site: Fluid Narrative [facility] - [facility] - 11/15/2021 9:17 AM CDT Bacterial Culture: Received Bactec aerob ic and Bactec anaerobic bottles Gerard Andino M.D., M.S. LAB MICROBIOLOGY - GENERAL O JOSE Performing Organization Address [facility] Phon e Number [facility] - [address] Transfuse Red Blood Cells : (11/10/2021 12:21 PM CDT) Dina Campa M.D. BLOOD TRANSFUSION ORDERABLES Transfuse Red Blood Cells : , 1 Units (11/10/2021 12:21 PM CDT) Dina Campa M.D. BLOOD TRANSFUSION ORDERABLES Direct Antiglobulin Test (Poly) (11/10/2021 12:02 PM CDT) [facility] Method Time Signature Direct Negative Negative 11/10/2021 STR[facility] Antiglobulin 12:44 PM CDT Test, Polyspecific Specimen Anatomical Collection Method Collection Time Receive d Time (Source) Location / / Volume Laterality Blood (Blood, 11/10/2021 12:02 11/10/2021 Venous) PM CDT 12:16 PM CDT Dina Campa M.D. LAB BLOOD BANK TEST ORDERABL ES Performing Organization Address City/[facility]/ZIP Code Phon e Number [facility] - [address] [address] [facility] [address] [facility] (ABNORMAL) SPSMA Result (11/10/2021 12:02 PM CDT) Analysis Performed At Patho logist Time Signature Neutrophilic Segs 80 (H) 50 - 75 % 11/10/2021 [facility] 2:35 PM CDT Lymphocytes 16 (L) 18 - 42 % 11/10/2021 [facility] 2:35 PM CDT Monocytes 1 (L) 2 - 11 % 11/10/2021 [facility] 2:35 PM CDT Eosinophils 1 1 - 3 % 11/10/2021 [facility] 2:35 PM CDT Basophils 2 0 - 2 % 11/10/2021 PM 2:35 PM CDT Manual Absolute 5.20 1.56 - 11/10/2021 [facility] Neutrophil Count 6.45 2:35 PM CDT x10(9)/L [...] Reviewed by: Tech 11/10/2021 2:35 PM CDT [facility] Specimen Anatomical Collection Method Collection Time Receive d Time (Source) Location / / Volume Laterality Blood (Blood, 11/10/2021 12:02 11/10/2021 Venous) PM CDT 12:29 PM CDT Dina Campa M.D. LAB BLOOD ADD-ON Performing Organization Address City/[facility] Code Phon e Number [facility] - [address] [place], [place] [address] [place] [address] [facility] [address] (ABNORMAL) Haptoglobin (11/10/2021 12:02 PM CDT) P athologist Signature Haptoglobin, S <14 (L) 30 - 200 11/10/2021 [facility] mg/dL 5:27 PM CDT Specimen Anatomical Collection Method Collection Time Receive d Time (Source) Location / / Volume Laterality Blood (Blood, 11/10/2021 12:02 11/10/2021 3:46 Venous) PM CDT PM CDT Dina Campa M.D. LAB BLOOD ADD-ON Performing Organization Address City/[facility]/ZIP Code Phon e Number [facility] [address] [place], [place] [address] [facility] [place] [address] Laboratory Medicine and Pathology [address] TA CESAR (Lactate Dehydrogenase) (11/10/2021 12:02 PM CDT) [facility] [phone] 11/10/2021 DTL U/L 1:10 PM CDT Specimen Anatomical Collection Method Collection Time Receive d Time (Source) Location / / Volume Laterality Blood (Blood, 11/10/2021 12:02 11/10/2021 Venous) PM CDT 12:48 PM CDT Dina Campa M.D. LAB BLOOD NON ADD-ON Performing Organization Address City/[facility]/ZIP Code Phon e Number [facility] - 200 [place], [place] [address] [place] [address] [address] 200 [facility] (ABNORMAL) Reticulocytes (11/10/2021 12:02 PM CDT) [facility] Method Time [facility] Reticulocytes, B 7.17 (H) 0.60 - 11/10/2021 DTL 2.71 % 2:23 PM CDT Absolute 137.7 (H) 30.4 - 11/10/2021 DTL Reticulocyte 110.9 2:23 PM CDT x10(9)/L Specimen Anatomical Collection Method Collection Time Receive d Time (Source) Location / / Volume Laterality Blood (Blood, 11/10/2021 12:02 11/10/2021 Venous) PM CDT 12:29 PM CDT Dina Campa M.D. LAB BLOOD ADD-ON Performing Organization Address City/[facility]/ZIP Code Phon e Number [facility] - [address] [place] [address] (ABNORMAL) Hemoglobin (11/10/2021 12:02 PM CDT) [...] Phon e Number [facility] - [id number] [place] [address] (ABNORMAL) Prothrombin Time (PT) (11/10/2021 4:38 AM CDT) Patholo gist Method Time Signature Prothrombin 39.1 (H) [...] Blood (Blood, 11/10/2021 4:38 AM 11/11/19 22 5:36 Venous) CDT AM CDT Dina Campa M.D. LAB BLOOD ADD-ON Performing Organization Address City/State/ZIP Code Phon e Number [facility] - [address] Phosphorus Inorganic (11/10/2021 4:38 AM CDT) P athologist Signature Phosphorus 4.0 2.5 - 4.5 11/10/2021 DTL (Inorganic), S mg/dL 6:10 AM CDT Specimen Anatomical Collection Method Collection Time Receive d Time (Source) Location / / Volume Laterality Blood (Blood, 11/10/2021 4:38 AM 11/11/19 22 5:51 Venous) CDT AM CDT Dina Campa M.D. LAB BLOOD ADD-ON Performing Organization Address [facility] Phon e Number [facility] - 200 [place] [address] [place] [address] Magnesium (11/10/2021 4:38 AM CDT) P athologist Signature Magnesium, S 1.7 1.7 - 2.3 11/10/2021 DTL mg/dL 6:10 AM CDT Specimen Anatomical Collection Method Collection Time Receive d Time (Source) Location / / Volume Laterality Blood (Blood, 11/10/2021 4:38 AM 11/11/19 22 5:51 Venous) CDT AM CDT Dina Campa M.D. LAB BLOOD ADD-ON Performing Organization Address City/[facility] Phon e Number [facility] - [address] (ABNORMAL) Basic Metabolic Panel (11/10/2021 4:38 AM [...] 11/10/2021 DTL Black/ mL/min/BSA 7:08 AM CDT [place] Comment: ----ADDITIONAL INFORMATION---- Estimated GFR calculated using [...] City/State/ZIP Code Phon e Number [facility] - [address] [place] [address] [place] [address] [facility] 200 [facility] (ABNORMAL) CBC with Differential, Blood (11/10/2021 4:38 [...] City/State/ZIP Code Phon e Number [facility] - [address] [place] [address] [place] [address] [facility] 200 [facility] Type and Screen (with reflex Antibody ID) (11/10/2021 4:37 AM CDT) [facility] gist Method Time Signature ABORh B Pos Not 11/10/2021 STRM applicable 7:54 AM CDT Antibody Negative Negative 11/10/2021 STRM Screen 8:07 AM CDT Type & Screen 11/13/2021 11/10/2021 STRM Expiration 23:59 7:54 AM CDT Testing [place] DEFAULT 11/10/2021 STRM Location 7:29 AM CDT Specimen Anatomical Collection Method Collection Time Receive d Time (Source) Location / / Volume Laterality Blood (Blood, 11/10/2021 4:37 AM 11/11/19 22 7:29 Venous) CDT AM CDT Dina Campa M.D. LAB BLOOD BANK TEST ORDERABL ES Performing Organization Address City/[facility]/ZIP Code Phon e Number [facility] - [address] [place], [place] [address] [place] [address] [facility] [address] ECG 12 Lead (11/09/2021 10:47 PM CDT) P athologist Signature Ventricular Rate 88 BPM MUSE ECG/Min MD Interval 158 ms MUSE QRSD Interval 84 ms MUSE QT Interval 344 ms MUSE QTC Interval 417 ms MUSE P [place] 64 degrees MUSE R [place] 46 degrees MUSE T Wave [place] 37 degrees MUSE Specimen Anatomical Collection Method [...] Campa M.D. ECG ORDERABLES Performing Organization Address City/[facility]/ZIP Code Phon e Number MUSE MUSE [...] LI-RADS is supported and endorsed by the [place] [employer]. More information can be found on the followin g link: https://www.acr.org/Clinical-Resources/Gqbrmskdi-vla-Hbru-Systems/LI-RADS/Ultras [email or web address] Procedure Note Rex Jenkins M.D. - 11/10/2021 [...] LI-RADS is supported and endorsed by the [place] [employer]. More information can be found on the followin g link: https://www.acr.org/Clinical-Resources/Rgvqcnygh-ysh-Pxbx-Systems/LI-RADS/Ultras [email or web address] IMPRESSION: 1. Cirrhotic morphology of the liver wit hout suspicious focal hepatic lesions. LI-RADS 1B. 2. Hepatic arterial and venous vasculatu re is patent with antegrade flow. Elevated main hepatic artery velocities. 3. Moderate volume ascites. Dina Campa M.D. IMG US PROCEDURES Bacteria / Ines Culture, Blood #2 (11/09/2021 8:25 PM CDT) [facility] Method Time Signature Bacteria/Adriana No growth 11/14/2021 DTL da Culture, after 5 10:02 PM CDT Blood days of incubation. Specimen (Source) Anatomical Collection Method Collection Time Re ceived Time Location / / Volume Laterality Blood (Blood, 11/09/2021 8:25 11/09/2021 9:40 Peripheral Draw) PM CDT PM CDT Comment: Specimen Source Site: Blood Narrative [facility] [place] - 11/14/2021 10:02 PM CDT Received Bactec Peds bottle Dina Campa M.D. LAB MICROBIOLOGY - GENERAL O RDERABLES Performing Organization Address City/State/ZIP Code Phon e Number [facility] - [address] [place], [place] [address] [place] [address] [facility] [address] Bacteria / Ines Culture, Blood #1 (11/09/2021 7:10 PM CDT) [facility] Method Time Signature Bacteria/Adriana No growth 11/14/2021 DTL da Culture, after 5 8:02 PM CDT Blood days of incubation. Specimen (Source) Anatomical Collection Method Collection Time Re ceived Time Location / / Volume Laterality Blood (Blood, 11/09/2021 7:10 11/09/2021 7:43 Peripheral Draw) PM CDT PM CDT Comment: Specimen Source Site: Blood Narrative [facility] [place] - 11/14/2021 8:02 PM CDT Received Bactec Peds bottle Dina Campa M.D. LAB MICROBIOLOGY - GENERAL O RDERABLES Performing Organization Address City/[facility]/ZIP Code Phon e Number [facility] - [id number] [place] [address] Phosphorus Inorganic (11/09/2021 7:09 PM CDT) athologist Signature Phosphorus 4.3 2.5 - 4.5 11/09/2021 [facility] (Inorganic), S mg/dL 8:15 PM CDT Specimen Anatomical Collection Method Collection Time Receive d Time (Source) Location / / Volume Laterality Blood (Blood, 11/09/2021 7:09 PM 11/10/19 7:44 Venous) CDT PM CDT Dina Campa M.D. LAB BLOOD ADD-ON Performing Organization Address [facility] Phon e Number [facility] - [address] AFP (Alpha-Fetoprotein), Tumor Marker (11/09/2021 7:09 PM CDT) athologist Signature Alpha-Fetoprote 6.4 ng/mL 11/10/2021 [facility] in, Tumor 3:04 PM CDT Marker, S Comment: ----REFERENCE VALUE---- <8.4 Reference values are for non- subjects only; production of AFP elevates values in women. ----ADDITIONAL INFORMATION---- In this Richie Big [place] assay AFP concen trations are <8.4 ng/mL [...] method is an immunoenzymatic assay manufactured by [employer]. and is tested on the [employer] DxI 800. Values obtained with different [...] M.D. LAB BLOOD ADD-ON Performing Organization Address City/[facility]/ZIP Code Phon e Number [facility] [address] [place], [place] [address] [facility] [place] [address] Laboratory Medicine and Pathology [address] [...] M.D. LAB BLOOD ADD-ON Performing Organization Address City/[facility]/ZIP Code Phon e Number [facility] - [address] [place], [place] [address] [facility] [place] [address] [address] [address] (ABNORMAL) Lactate, baseline (11/09/2021 7:09 PM CDT) athologist Signature Lactate, P 2.7 (H) 0.5 - 2.2 11/09/2021 [facility] mmol/L 7:35 PM CDT Specimen Anatomical Collection Method Collection Time Receive d Time (Source) Location / / Volume Laterality Blood (Blood, 11/09/2021 7:09 PM 11/10/19 22 7:20 Venous) CDT PM CDT Dina Campa M.D. LAB BLOOD NON ADD-ON Performing Organization Address City/[facility] Phon e Number [facility] - [address] [place] [place] [address] (ABNORMAL) Hepatic Function Panel (11/09/2021 7:09 PM CDT) [facility] Method Time Signature Bilirubin, Total, S [...] M.D. LAB BLOOD ADD-ON Performing Organization Address City/[facility] [place] Phon e Number [facility] - [address] [place], [place] [address] [facility] [place] [address] (ABNORMAL) Basic Metabolic Panel (11/09/2021 7:09 PM [...] 11/09/2021 DTL Black/ mL/min/BSA 9:49 PM CDT [place] Comment: ----ADDITIONAL INFORMATION---- Estimated GFR calculated using [...] City/State/ZIP Code Phon e Number [facility] - [address] [place] [address] [place] [address] [facility]-[place] [address] [facility] (ABNORMAL) CRP (C-Reactive Protein) (11/09/2021 7:09 PM [...] City/State/ZIP Code Phon e Number [facility] - [address] [place] [address] 05 [place] [address] [facility] (ABNORMAL) CBC with Differential, Blood (11/09/2021 [...] [facility] Code Phon e Number [facility] - 200 [place], [place] [address] [place] [address] [facility] [address] [facility] documented in this encounter Visit Diagnoses Diagnosis [...] Administer the 25% solution at 100 mL/hr emroimkhtjnlu-dlpxjeoqwq-qverkfts in Lipoderm Given 11/11/2021 9 :38 AM [...] human 25 % injection 100 g (COMPLETED) 4707 (N ew Bag - Provider: Kevon Rihc RSumaNSuma) 100 g, intravenous, Once, On Wed11/09/21 at 2330, For 1 dose, If no infusion rate specified: Administer the 25% solution at 100 mL/hr qlajrxyhxbdfk-mxecieilkw-ikwgahku in Lipoderm 2%-5%-5% cream 1 g 1337 (Given - Provider: Neptali Calvillo RSumaN.)2138 (Given - Provider: Karen Palacio R.N.) 0938 [...] sulfate in water IVPB 2 g (COMPLETED) 917 (New Bag - Provider: Neptali Calvillo R.N.) [...] 0 917 (Given - Provider: Neptali Calvillo RGabby) 0938 (Given - Provider: Bernardo Nguyen R.N.) [...] (ROXICODONE) 1602 (Given - Provider: Neptali Calvillo RSumaN.) 0203 (Given - Provider: Karen day R.N.)0938 [...] documented as of this encounter Care Teams Dobie Worker Relationship Specialty Start Date End Date Elsewhere, Pcp PCP - General Family Medicine 03/10/20 11/30/21 [facility] 08/25/21 Ervin Schroeder MD Referring Provider Family Medicine 03/24/[address] [place] [address] documented as of this encounter
--- OUTSIDE RECORDS SUMMARY | 2022-02-04 23:14 | XMS_ITS | Encounter Summary ---
:1990 Author Organization [facility] Address [address] [place] [address] Care Team Providers Name Role Phone Elsewhere, Pcp Primary Care Provider Unavailable Reason for Visit Transplant (Routine) - Closed Specialty Diagnoses / Procedures Referred By Contact Refer red To Contact Transplant Surgery / Diagnoses Cirrhosis Alcoholic (HCC) Abnormal Liver Function Test Ascites Pretransplant Recipient Evaluation Exam [facility] Lilian, M.P.H. [address] [place] [address] Referral ID Status Reason Start Date Expiration Date Visits Requ ested Visits Authorized [id number] Closed 08/25/2021 08/25/2022 1 1 Encounter Details Date Type Department Care Team Description 10/22/2021 Telemedicine Warren Carter M.D., M.P.H. [address] [place] [address] Moderate Or Severe Use Disorder (Depende nce) Alcohol Remission (HCC) (Primary Dx); Brigid Graham M.D. 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 Ascites; [place] [address] Abnormal Liver Function Test ; [phone] Pretransplant R ecipient Evaluation Exam; Preoperative Ex [...] do you attend sabianism or Never 2021 yazidi services? 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 - 10/22/2021 3:00 PM CDT DEMOGRAPHICS Catia Carias [address] [place] [phone] 31 y.o. REFERRAL SOURCE: Warren Hernández M.D., M.P.H. Consult conducted via real-time audio/video technology by Brigid Sales M.D. in [facility] to the patient in Patient's Home CHIEF [...] time of this evaluation and reviewed the [facility] record. She has been seen [...] - medical card, plus non medical, last ??? Sexual activity: Not on file Other [...] and Family: Twice a week ??? Attends Presybeterian Services: Never ??? Active Member of Clubs [...] service: No Occupational history: She worked at [employer] Marital/partner status: She has been with her boyfriend for 12 years. Children: No Presybeterian/spiritual: None reported. Support network: She is not [...] Type Specialty Care Team Description Hospital Radiology [facility] 2 Encounter Tyrell Rodriguez, Lilian [address] [place] [phone] Hospital Gastroenterology and [facility] 2 Encounter Hepatology Tyrell Rodriguez, Lilian [address] [place] [phone] Surgery Gastroenterology and [facility] ESOPHAG OGASTRODUODENOSCOPY 2 Hepatology Tyrell Rodriguez, Lilian [address] [place] [phone] Telemedicine Transplant 2 Lab Laboratory Medicine Karin, Olinda Gannon M.D., Ph.D. [address] [place] [phone] Lab Laboratory Medicine Karin, Olinda Gannon M.D., Ph.D. [address] [place] [address] [phone] Office Visit Transplant Karin, 2 Adeline Gannon M.D., Ph.D. [address] [place] [phone] Office Visit [facility] Carlos, 2 Medicine Vernell Perez 300 [place] [phone] Appointment Radiology Matthew Jerome 2 Y M.B.B.SSuma, MJules [address] [place] [address] [phone] Appointment Gastroenterology demian Silver, 2 Hepatology Yue Burciaga M.D. [address] [place] [phone] Office Visit Gastroenterology and Matthew Jerome 2 Hepatology Jennifer M.B.B.SSuma, MJules 1025 [place] [address] Appointment Radiology Matthew Jerome 2 Y M.B.B.SSuma, MJules [address] [place] [phone] Scheduled Procedures Name Priority Associated Diagnoses [...] documented as of this encounter Care Teams Sunday [employer] Missionary Relationship Specialty Start Date End Date Elsewhere, Pcp PCP - General Family Medicine 03/10/20 11/30/21 [facility] 08/25/21 Ervin Schroeder MD Referring Provider Family Medicine 03/24/[address] [place] [address] documented as of this encounter
--- OUTSIDE RECORDS SUMMARY | 2022-02-04 23:14 | XMS_ITS | Encounter Summary ---
:1990 Author Organization [facility] Address [address] [place] [address] Care Team Providers Name Role Phone Elsewhere, Pcp Primary Care Provider Unavailable Reason for Visit Reason Comments Vitamin K Encounter Details Date Type Department Care Team Description 10/31/2021 Clinical Communication [facility] PRE/POS T Alina Carranza, Vitamin K 10[address] [place] [address] [phone] Social History Tobacco Use Types Packs/Day Years [...] do you attend sikhism or Never 2021 anabaptist services? 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 - 10/31/2021 4:22 PM CDT This display card writer contacted [facility] in [facility], spoke to Perri. Prescription for Vitamin K was received and has not been entered. Perri stated prescription will be ready and patient will be notified by pharmacy via notification system. This display card writer sent patient a message via portal. Telephone Encounter - Alina Carranza R.N. - 10/31/2021 4:09 PM CDT Patient states [...] Specialty Care Team Description Hospital Radiology [facility] 2 Encounter Tyrell Rodriguez M.D. [address] [place] [phone] [address] [facility] 2 Encounter Hepatology Tyrell Rodriguez M.D. [address] [place] [phone] [facility] ESOPHAG OGASTRODUODENOSCOPY 2 Hepatology Tyrell Rodriguez M.D. [address] [place] [phone] Telemedicine Transplant 2 Lab Laboratory Medicine Karin, 2 Adeline Gannon M.D., Ph.D. [address] [place] [phone] Lab Laboratory Medicine Karin, 2 Adeline Gannon M.D., Ph.D. [address] [place] [address] [phone] Office Visit Transplant Karin, 2 Adeline Gannon M.D., Ph.D. [address] [place] [phone] Office Visit [facility], 2 Solitario Perez P.A.-C. [address] [place] [address] [phone] Appointment Radiology Matthew Jerome 2 Y M.B.B.SLilian Moise 10[address] [place] [phone] Appointment Gastroenterology and Adrianne 2 Hepatology Yue Burciaga M.D. [address] [place] [phone] Office Visit Gastroenterology and Matthew Jerome 2 Hepatology Jennifer M.B.B.SLilian Moise 10[address] [place] [phone] Appointment Radiology LuisMatthew abdul 2 YElizabeth.B.B.Lilian [place] [address] [place] [phone] Scheduled Procedures Name Priority Associated Diagnoses Date/Time ESOPHAGOGASTRODUODENOSCOPY Cirrhosis Alc oholic (HCC) 02/10/2022 8:45 AM CDT Hypertension Portal (HCC) documented as of this encounter Visit Diagnoses Not on filedocumented in this encounter Additional Health Concerns Assessment Noted Time PHQ-9 Depression Total Score: 10 10/06/2021 5:00 PM CD T documented as of this encounter Care Teams Territory Supervisor Relationship Specialty Start Date End Date Elsewhere, Pcp PCP - General Family Medicine 03/10/20 11/30/21 [facility] [employer] lab 08/25/21 Ervin Schroeder MD Referring Provider Family Medicine 03/24/[address] [place] [address] [phone] documented as of this encounter
--- OUTSIDE RECORDS SUMMARY | 2022-02-04 23:14 | XMS_ITS | Encounter Summary ---
:1990 Author Organization [facility] Address [address] [place] [address] Care Team Providers Name Role Phone Elsewhere, Pcp Primary Care Provider Unavailable Encounter Details Date Type Department Care Team Description 11/04/2021 Clinical Communication Department of Symone Beebe Gastroenterology in [address] [place] [phone] Social History Tobacco Use Types Packs/Day Years [...] do you attend adventism or Never 2021 confucianism services? 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 [address] [place] [phone] Lab Laboratory Medicine Karin, Olinda Gannon M.D., Ph.D. [address] [place] [phone] Office Visit Transplant Karin, 2 Adeline Gannon M.D., Ph.D. [address] [place] [phone] Office Visit [facility], 2 Medicine Luis Perez. 300 [place] [phone] Appointment Radiology Luischantell Matthew 2 Vik RodriguezBGraeme, Lilian [address] [place] [address] [phone] Appointment Gastroenterology and Ardianne, 2 Hepatology Yue Burciaga M.D. [address] [place] [phone] Office Visit Gastroenterology and Matthew Jerome 2 Hepatology Tyrell Rodriguez M.D. 1025 [place] [phone] Appointment Radiology Queenie Tyrell May 2, M.D. 10[address] [place] [phone] Scheduled Procedures Name Priority Associated Diagnoses Date/Time ESOPHAGOGASTRODUODENOSCOPY Cirrhosis Alc oholic (HCC) 02/10/2022 8:45 AM CDT Hypertension Portal (HCC) documented as of this encounter Visit Diagnoses Not on filedocumented in this encounter Additional Health Concerns Assessment Noted Time PHQ-9 Depression Total Score: 10/06/2021 5:00 PM CD T documented as of this encounter Care Teams Computer Systems Architect Relationship Specialty Start Date End Date Elsewhere, Pcp PCP - General Family Medicine 03/10/20 11/30/21 [facility] [place] lab 08/25/21 Ervin Schroeder MD Referring Provider Family Medicine 03/24/[address] [place] [phone] documented as of this encounter
--- OUTSIDE RECORDS SUMMARY | 2022-02-04 23:14 | XMS_ITS | Encounter Summary ---
:1990 Author Organization [facility] Address [address] [place] [address] Care Team Providers Name Role Phone Elsewhere, Pcp Primary Care Provider Unavailable Reason for Visit Reason Comments Follow up on caregiver plan Encounter Details Date Type Department Care Team Description 10/20/2021 Clinical Ramirez Santana, Follow up on Communication Center for Joel Gannon, caregiver plan Transplantation and L.I.C.S.W., Clinical Regeneration M.S.W. in [place], [facility] [address] [place], [place] [address] [facility] [address] [place], [place] [phone] (Work) [phone] Social History Tobacco Use Types Packs/Day Years [...] do you attend nondenominational or Never 2021 roman catholic services? Do you belong to any clubs or No 07/17/2021 organizations such as nondenominational groups, [employer], [employer] or athletic groups, or school groups? How [...] or the highest technical, or vocational p [facility] degree you have received? 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 - 10/20/2021 12:03 PM CDT I [...] pain management per Dr. Radhames Neumann in [facility] Psychiatry (Pain Rehabilitation) - virtual Complex [...] called the patient on 10/17/2021 (cell phone: [phone]) to attempt to follow up on her [...] Type Specialty Care Team Description Hospital Radiology [facility] 2 Encounter Tyrell Rodriguez M.D. [address] [place] [phone] Hospital Gastroenterology and [facility] 2 Encounter Hepatology Tyrell Rodriguez M.D. [address] [place] [phone] Surgery Gastroenterology and [facility] ESOPHAG OGASTRODUODENOSCOPY 2 Hepatology Tyrell Rodriguez M.D. [address] [place] [phone] Telemedicine Transplant 2 Lab Laboratory Medicine Olinda Frazier M.D., Ph.D. [address] [place] [address] [phone] Lab Laboratory Medicine Olinda Frazier M.D., Ph.D. [address] [place] [address] [phone] Office Visit Transplant Olinda Frazier M.D., Ph.D. [address] [place] [phone] Office Visit [facility], 2 Medicine Vernell Perez 300 [place] [phone] Appointment Radiology Matthew Jerome 2 Y M.B.BSumaSLilian Moise [address] [place] [phone] Appointment Gastroenterology and Adrianne, 2 Hepatology Yue Burciaga M.D. [address] [place] [phone] Office Visit Gastroenterology and Matthew Jerome 2 Hepatology Joshua RodriguezB.B.SLilian Moise [address] [place] [address] [phone] Appointment Radiology Matthew Jerome 2 Y M.B.B.SLilian Moise [address] [place] [address] [phone] Scheduled Procedures Name Priority Associated Diagnoses Date/Time ESOPHAGOGASTRODUODENOSCOPY Cirrhosis Alc oholic (HCC) 02/10/2022 8:45 AM CDT Hypertension Portal (HCC) documented as of this encounter Visit Diagnoses Not on filedocumented in this encounter Additional Health Concerns Assessment Noted Time PHQ-9 Depression Total Score: 10/06/2021 5:00 PM CD T documented as of this encounter Care Teams Supervisor Extruding Department Relationship Specialty Start Date End Date Elsewhere, Pcp PCP - General Family Medicine 03/10/20 11/30/21 [facility] [place] lab 08/25/21 Ervin Schroeder MD Referring Provider Family Medicine 03/24/[address] [place] [address] documented as of this encounter
--- OUTSIDE RECORDS SUMMARY | 2022-02-04 23:15 | XMS_ITS | Encounter Summary ---
:1990 Author Organization [facility] Address [address] [place] [address] Care Team Providers Name Role Phone Elsewhere, Pcp Primary Care Provider Unavailable Encounter Details Date Type Department Care Team Description 10/02/2021 Orders Only Jairo Gamino am Clinical [facility] Trans[facility] 200 1 [facility] Exam (Primary Dx) and Clinical Regeneration [place], [place] in [facility] [phone] [place] [phone] Social History Tobacco Use Types Packs/Day [...] do you attend muslim or Never 2021 hindu services? 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 [address] [place] [address] [phone] Hospital Gastroenterology and [facility] Matthew 2 Encounter Hepatology Tyrell Rodriguez M.D. [address] [place] [phone] G[address] [facility] Matthew ESOPHAG OGASTRODUODENOSCOPY 2 Hepatology Tyrell Rodriguez M.D. [address] [place] [phone] Telemedicine Transplant 2 Lab Laboratory Medicine Karin, 2 Adeline Gannon M.D., Ph.D. [address] [place] [phone] Lab Laboratory Medicine Karin, 2 Adeline Gannon M.D., Ph.D. [address] [place] [phone] Office Visit Transplant Karin, 2 Adeline Gannon M.D., Ph.D. [address] [place] [phone] [facility], 2 Medicine Vernell Perez [address] [place] [phone] Appointment Radiology Matthew Jerome 2 YJoshuaBSumaB.SSuma, MJules [address] [place] [phone] Appointment Gastroenterology and Adrianne 2 Hepatology Yue Burciaga M.D. [address] [place] [phone] Office Visit Gastroenterology and Matthew Jerome 2 Hepatology Jennifer MSumaBSumaB.SSuma, Lilian [address] [place] [address] [phone] Appointment Radiology Matthew Jerome 2 Y M.B.B.SSuma, Lilian [address] [place] [address] [phone] Scheduled Procedures Name Priority Associated Diagnoses Date/Time ESOPHAGOGASTRODUODENOSCOPY Cirrhosis Alc oholic (HCC) 02/10/2022 8:45 AM CDT Hypertension Portal (HCC) documented as of this encounter Visit Diagnoses Diagnosis Clinical Research Exam - Primary Cirrhosis Alcoholic (HCC) Hypertension Portal (HCC) documented in this encounter Care Teams Tire Adjuster Relationship Specialty Start Date End Date Elsewhere, Pcp PCP - General Family Medicine 03/10/20 11/30/21 [facility] 08/25/21 Ervin Schroeder MD Referring Provider Family Medicine 03/24/[address] [place] [address] documented as of this encounter
--- OUTSIDE RECORDS SUMMARY | 2022-02-04 23:15 | XMS_ITS | Encounter Summary ---
:1990 Author Organization [facility] Address [address] [place] [address] Care Team Providers Name Role Phone Elsewhere, Pcp Primary Care Provider Unavailable Reason for Visit Reason Comments [facility] MED REQUEST Encounter Details Date Type Department Care Team Description 10/01/2021 Clinical Communication Department of KACY Crain MED REQUEST Nicotine Jessy Gannon M.A., [place], C.T.T.S. [facility], [address] [place] [address] in [facility] [phone] [place] [address] [place], [place] (Work) [phone] Social History Tobacco Use Types Packs/Day Years [...] do you attend tenriism or Never 2021 samaritan services? Do you belong to any clubs or No 07/17/2021 organizations such as tenriism groups, unions, [employer] or athletic groups, or school groups? 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 - 10/01/2021 12:13 PM CDT 2 mg MINI lozenges with refills, flavored [facility] in [place] documented in this encounter Plan of Treatment Upcoming Encounters Date Type Specialty Care Team Description [facility] Radiology Matthew Jerome 2 Encounter Tyrell Rodriguez M.D. 10[address] [place] [phone] [facility] Gastroenterology and Matthew Jerome 2 Encounter Hepatology Y, M.B.BLilian Bedolla 1025 [place] [phone] Surgery Gastroenterology and Luischantell Matthew ESOPHAG OGASTRODUODENOSCOPY 2 Hepatology Tyrell Rodriguez M.D. [address] [place] [phone] Telemedicine Transplant 2 Lab Laboratory Medicine Karin, 2 Adeline Gannon M.D., Ph.D. [address] [place] [phone] Lab Laboratory Medicine Karin, 2 Adeline Gannon M.D., Ph.D. [address] [place] [address] [phone] Office Visit Transplant Karin, 2 Adeline Gannon M.D., Ph.D. [address] [place] [address] [phone] Office Visit [facility], 2 Medicine Vernell Perez [address] [place] [phone] Appointment Radiology Matthew Jerome 2 YVikBGraeme, Lilian [address] [place] [phone] Appointment Gastroenterology demian Silver, 2 Hepatology Yue Burciaga M.D. [address] [place] [phone] Office Visit Gastroenterology and Matthew Jerome 2 Hepatology Tyrell Rodriguez, Lilian 10[address] [place] [phone] Appointment Radiology LuisMatthew abdul 2 Tyrell Rodriguez M.D. 10[address] [place] [phone] Scheduled Procedures Name Priority Associated Diagnoses Date/Time ESOPHAGOGASTRODUODENOSCOPY Cirrhosis Alc oholic (HCC) 02/10/2022 8:45 AM CDT Hypertension Portal (HCC) documented as of this encounter Visit Diagnoses Not on filedocumented in this encounter Care Teams Mixer Operator Helper Hot Metal Relationship Specialty Start Date End Date Elsewhere, Pcp PCP - General Family Medicine 03/10/20 11/30/21 [facility] [place] lab 08/25/21 Ervin Schroeder MD Referring Provider Family Medicine 03/24/[address] [place] [phone] documented as of this encounter
--- OUTSIDE RECORDS SUMMARY | 2022-02-04 23:15 | XMS_ITS | Encounter Summary ---
:1990 Author Organization [facility] Address [address] [place] [address] Care Team Providers Name Role Phone Elsewhere, Pcp Primary Care Provider Unavailable Reason for Visit Transplant (Routine) - Closed Specialty Diagnoses / Procedures Referred By Contact Refer red To Contact Transplant Surgery / Warren Hernández [facility] Transplant Lilian, M.P.H. [address] [place] [address] Referral ID Status Reason Start Date Expiration Date Visits Requ ested Visits Authorized [id number] Closed 08/26/2021 08/26/2022 1 1 Encounter Details Date Type Department Care Team Description 10/03/2021 Office Visit Silvano Funez M.D. [address] [place] [phone] Patent Foramen Ovale (HCC) (Primary Dx); [facility] Abelino Chow M.D. [address] [place] [phone] Hypertension Portal (HCC); Transplantation and Cirrhosi s Alcoholic (HCC); Clinical Regeneration in Pre transplant Recipient Evaluation Exam [place], [place] [address] [place] [phone] Social History Tobacco Use Types Packs/Day [...] do you attend denominational or Never 2021 hoahaoism services? Do you [...] highest level of school Associate degree: ruth barekr, 07/16/2021 you have completed or the highest technical, or vocational p rogram degree you have received? 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 [address] [place] [phone] [facility] Gastroenterology and [facility] 2 Encounter Hepatology Tyrell Rodriguez M.D. [address] [place] [phone] Surgery Gastroenterology and [facility] ESOPHAG OGASTRODUODENOSCOPY 2 Hepatology Tyrell Rodriguez M.D. [address] [place] [phone] Telemedicine Transplant 2 Lab Laboratory Medicine Karin, Olinda Gannon M.D., Ph.D. [address] [place] [phone] Lab Laboratory Medicine Olinda Frazier M.D., Ph.D. [address] [place] [phone] Office Visit Transplant Olinda Frazier M.D., Ph.D. [address] [place] [phone] Office Visit Community Internal [facility], 2 Medicine Vernell Perez 300 [place] [phone] Appointment Radiology Matthew Jerome 2 Y, M.B.B.SSuma, MJules [address] [place] [phone] Appointment Gastroenterology and Adrianne, 2 Hepatology Yue Burciaga M.D. [address] [place] [address] Office Visit Gastroenterology and Matthew Jerome 2 Hepatology Jennifer M.B.B.SSuma, Lilian [address] [place] [phone] Appointment Radiology Matthew Jerome 2 Y, M.B.B.SSuma, MJules [address] [place] [phone] Scheduled Procedures Name Priority Associated Diagnoses Date/Time ESOPHAGOGASTRODUODENOSCOPY Cirrhosis Alc oholic (HCC) 02/10/2022 8:45 AM CDT Hypertension Portal (HCC) documented as of this encounter Visit Diagnoses Diagnosis Patent Foramen Ovale (HCC) - Primary Hypertension Portal (HCC) Cirrhosis Alcoholic (HCC) Pretransplant Recipient Evaluation Exam Cirrhosis Alcoholic (HCC) Hypertension Portal (HCC) documented in this encounter Care Teams Spot Cleaner Relationship Specialty Start Date End Date Elsewhere, Pcp PCP - General Family Medicine 03/10/20 11/30/21 [facility] [place] [facility] 08/25/21 Ervin Schroeder MD Referring Provider Family Medicine 03/24/[address] [place] [address] documented as of this encounter
--- OUTSIDE RECORDS SUMMARY | 2022-02-04 23:15 | XMS_ITS | Encounter Summary ---
:1990 Author Organization [facility] Address [address] [place] [address] Care Team Providers Name Role Phone Elsewhere, Pcp Primary Care Provider Unavailable Reason for Visit Reason Comments Appointment [facility] FA Encounter Details Date Type Department Care Team Description 10/10/2021 Clinical Ramirez Barajas, Camron coreas ([facility] Communication Center for PRANEETH [place]) Transplantation and Lilian, Ph.D. Clinical [facility] [address] in [facility] [address] [facility] [phone] Social History Tobacco Use Types Packs/Day Years [...] do you attend yazdanism or Never 2021 caodaism services? Do you belong to any clubs or No 07/17/2021 organizations such as yazdanism groups, unions, fraCoolest Cooler or athletic groups, or school groups? 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 [address] [place] [phone] Surgery Gastroenterology and [facility] ESOPHAG OGASTRODUODENOSCOPY 2 Hepatology YTyrell, Lilian [address] [place] [address] Telemedicine Transplant 2 Lab Laboratory Medicine Karin, 2 Adeline Gannon M.D., Ph.D. [address] [place] [phone] Lab Laboratory Medicine Karin, 2 Adeline Gannon M.D., Ph.D. [address] [place] [phone] Office Visit Transplant Karin, 2 Adeline Gannon M.D., Ph.D. [address] [place] [phone] Office Visit Community Internal [facility], 2 Medicine Luis Perez. [address] [place] [phone] Appointment Radiology [facility] 2 YTyrell, Lilian [address] [place] [phone] Appointment Gastroenterology and Adrianne, 2 Hepatology Yue Burciaga M.D. [address] [place] [address] Office Visit Gastroenterology and Matthew Jerome 2 Hepatology Tyrell Rodriguez, Lilian [address] [place] [phone] Appointment Radiology LuisMatthew abdul 2 Tyrell Rodriguez, Lilian [address] [place] [address] Scheduled Procedures Name Priority Associated Diagnoses Date/Time ESOPHAGOGASTRODUODENOSCOPY Cirrhosis Alc oholic (HCC) 02/10/2022 8:45 AM CDT Hypertension Portal (HCC) documented as of this encounter Visit Diagnoses Not on filedocumented in this encounter Additional Health Concerns Assessment Noted Time PHQ-9 Depression Total Score: 10 10/06/2021 5:00 PM CD T documented as of this encounter Care Teams Expert Witness Relationship Specialty Start Date End Date Elsewhere, Pcp PCP - General Family Medicine 03/10/20 11/30/21 [facility] [place] [facility] 08/25/21 Ervin Schroeder MD Referring Provider Family Medicine 03/24/[address] [place] [address] documented as of this encounter
--- OUTSIDE RECORDS SUMMARY | 2022-02-04 23:15 | XMS_ITS | Encounter Summary ---
:1990 Author Organization [facility] Address [address] [place] [address] Care Team Providers Name Role Phone Elsewhere, Pcp Primary Care Provider Unavailable Reason for Referral Outpatient (Routine) - Closed Specialty Diagnoses / Procedures Referred By Contact Refer red To Contact Diagnoses Cirrhosis Alcoholic (HCC) Abnormal Liver Function Test Ascites Pretransplant Recipient Evaluation Exam Preoperative Exam Warren Hernández M.D., [facility] Procedures Short renal clearance: Iothalamate (Renal Studies Unit) M.P.H. [address] [place] [address] Referral ID Status Reason Start Date Expiration Date Visits Requ ested Visits Authorized [id number] Closed 08/25/2021 08/25/2022 1 1 Reason for Visit Outpatient (Routine) - Closed Specialty Diagnoses / Procedures Referred By Contact Refer red To Contact Diagnoses Cirrhosis Alcoholic (HCC) Abnormal Liver Function Test Ascites Pretransplant Recipient Evaluation Exam Preoperative Exam Warren Hernández M.D., [facility] Procedures Short renal clearance: Iothalamate (Renal Studies Unit) M.P.H. 200 [place] [address] Referral ID Status Reason Start Date Expiration Date Visits Requ ested Visits Authorized [id number] Closed 08/25/2021 08/25/2022 1 1 Encounter Details Date Type Department Care Team Description 10/03/2021 Hospital Encounter Department of Edgar, Travosi s Alcoholic (HCC); Laboratory Medicine Warren Schaefer M.D., [facility] Liver Function Test; and Pathology, M.P.H. 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 Last Filed [...] Encounters Date Type Specialty Care [facility] 2 Encounter Tyrell Rodriguez, Lilian [address] [place] [phone] [facility] 2 Encounter Hepatology Tyrell Rodriguez, Lilian [address] [place] [phone] Surgery Gastroenterology and [facility] ESOPHAG OGASTRODUODENOSCOPY 2 Hepatology Tyrell Rodriguez, MJules [address] [place] [phone] Telemedicine Transplant 2 Lab Laboratory Medicine Karin, 2 Adeline Gannon M.D., Ph.D. [address] [place] [phone] Lab Laboratory Medicine Karin, 2 Adeline Gannon M.D., Ph.D. [address] [place] [phone] Office Visit Transplant Karin, 2 Adeline Gannon M.D., Ph.D. [address] [place] [phone] Office Visit [facility], 2 Medicine Vernell Perez [address] [place] [phone] Appointment Radiology Matthew Jerome 2 Y, M.B.B.SSuma, MJules [address] [place] [phone] Appointment Gastroenterology demian Silver, 2 Hepatology Yue Burciaga M.D. [address] [place] [phone] Office Visit Gastroenterology and Matthew Jerome 2 Hepatology Jennifer M.B.B.SSuma, MJules [address] [place] [address] Appointment Radiology Matthew Jerome 2 Y, M.B.B.SSuma, Lilian [address] [place] [phone] Scheduled Orders Name Type Priority Associated [...] and its performa nce characteristics determined by [facility] in a manner consistent with CLIA requirements. This test has not been cleared or approved by the [place] d and Drug Administration. Specimen Anatomical Collection Method Collection Time Receive d Time (Source) Location / / Volume Laterality Varies (Blood, 10/03/2021 11:18 2 Venous) AM CDT 12:59 PM CDT Narrative [facility] - 10/06/2021 2:59 PM CDT Specimen Information: Specimen ID: [id number] Specimen Type: Varies Specimen Collection Start Date: 11:18 AM Specimen Received Date: 10/03/2021 12:59 PM Specimen ID: [id number] Specimen Type: Varies Specimen Collection Start Date: 12:07 PM Specimen Received Date: 10/03/2021 12:59 PM Specimen ID: [id number] Specimen Type: Varies Specimen Collection Start Date: 12:41 PM Specimen Received Date: 10/03/2021 12:59 PM Specimen ID: [id number] Specimen Type: Varies Specimen Collection Start Date: 12:10 PM Specimen Received Date: 10/03/2021 12:59 PM Specimen ID: [id number] Specimen Type: Varies Specimen Collection Start Date: 12:43 PM Specimen Received Date: 10/03/2021 12:59 PM Warren Hernández M.D., M.P.H. LAB BLOOD NON ADD-ON Performing Organization Address City/State/ZIP Code Phon e Number [facility] - [address] [place], [place] [address] [facility] [place] [address] [facility] [address] documented in this encounter [...] dose documented in this encounter Care Teams Cooking Chef Relationship Specialty Start Date End Date Elsewhere, Pcp PCP - General Family Medicine 03/10/20 11/30/21 [facility] [place] [facility] 08/25/21 Ervin Schroeder MD Referring Provider Family Medicine 03/24/[address] [place] [address] documented as of this encounter
--- OUTSIDE RECORDS SUMMARY | 2022-02-04 23:15 | XMS_ITS | Encounter Summary ---
:1990 Author Organization [facility] Address [address] [place] [address] Care Team Providers Name Role Phone Elsewhere, Pcp Primary Care Provider Unavailable Encounter Details Date Type Department Care Team Description 10/09/2021 Clinical Communication [facility] [place] [facility] , Brigid Hudson, Transplantation and Lilian Clinical Regeneration in [address] [place] [address] [place] [phone] [place] [phone] Social History Tobacco Use Types Packs/Day Years [...] do you attend zoroastrian or Never 2021 sikh services? 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 [address] [place] [phone] Lab Laboratory Medicine Charlesalexa, 2 Adeline Gannon M.D., Ph.D. [address] [place] [phone] Office Visit Transplant Karin, 2 Adeline Gannon M.D., Ph.D. [address] [place] [phone] Office Visit Community Internal [facility], 2 Medicine Vernell Perez [address] [place] [phone] Appointment Radiology Matthew Jerome 2 Y M.B.B.SLilian Moise [address] [place] [phone] Appointment Gastroenterology and Adrianne, 2 Hepatology Yue Burciaga M.D. [address] [place] [phone] Office Visit Gastroenterology and Matthew Jerome 2 Hepatology Jennifer M.B.B.SLilian Moise [address] [place] [phone] Appointment Radiology Matthew Jerome 2 Y M.B.B.SLilian Moise [address] [place] [phone] Scheduled Procedures Name Priority Associated Diagnoses Date/Time ESOPHAGOGASTRODUODENOSCOPY Cirrhosis Alc oholic (HCC) 02/10/2022 8:45 AM CDT Hypertension Portal (HCC) documented as of this encounter Visit Diagnoses Not on filedocumented in this encounter Additional Health Concerns Assessment Noted Time PHQ-9 Depression Total Score: 10 10/06/2021 5:00 PM CD T documented as of this encounter Care Teams Head Of Loss Prevention Relationship Specialty Start Date End Date Elsewhere, Pcp PCP - General Family Medicine 03/10/20 11/30/21 [facility] [place] lab 08/25/21 Ervin Schroeder MD Referring Provider Family Medicine 03/24/[address] [place] [address] documented as of this encounter
--- OUTSIDE RECORDS SUMMARY | 2022-02-04 23:15 | XMS_ITS | Encounter Summary ---
:1990 Author Organization [facility] Address [address] [place] [address] Care Team Providers Name Role Phone Elsewhere, Pcp Primary Care Provider Unavailable Reason for Referral Outpatient (Routine) - Pending Review Specialty Diagnoses / Procedures Referred By Contact Refer red To Contact Migue Justice M .D. [facility] [address] [place] [phone] Referral ID Status Reason Start Date Expiration Date Visits V isits Requested Authorized [id number] Pending 10/01/2021 10/01/2022 1 1 Review Scheduling Instructions Calendar: TXP RESEARCH ROCH 10 [TXP ROCH] Floor: [place] 10a Encounter Details Date Type Department Care Team Description 10/01/2021 Orders Only Ramirez Nguyen [facility] Bernardo cooley for Transplantation and [address] [place] [address] Clinical Regeneration in [place], [place] [phone] [place] [phone] Social History Tobacco Use Types Packs/Day [...] do you attend mandaeism or Never 2021 jehovah's witness services? 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 Gastroenterology and Matthew Jerome 2 Encounter Hepatology Fredy RodriguezSSuma, Lilian 1025 [place] [address] Surgery Gastroenterology and Matthew Jerome ESOPHAG OGASTRODUODENOSCOPY 2 Hepatology Vik RodriguezBGraeme, Lilian 10[address] [place] [address] Telemedicine Transplant 2 Lab Laboratory Medicine Karin, 2 Adeline Gannon M.D., Ph.D. [address] [place] [phone] Lab Laboratory Medicine Karin, 2 Adeline Gannon M.D., Ph.D. [address] [place] [phone] Office Visit Transplant Karin, 2 Adeline Gannon M.D., Ph.D. [address] [place] [phone] Office Visit [facility] Internal [facility], 2 Medicine Vernell Perez [address] [place] [phone] Appointment Radiology Matthew Jerome 2 Joshua RodriguezB.B.SuSma, Lilian [address] [place] [address] Appointment Gastroenterology demian Silver, 2 Hepatology Yue Burciaga M.D. [address] [place] [address] Office Visit Gastroenterology and Matthew Jerome 2 Hepatology Tyrell Rodriguez, Lilian [address] [place] [phone] Appointment Radiology LuisMatthew abdul 2 Tyrell Rodriguez M.D. 1025 [place] [phone] Scheduled Procedures Name Priority Associated Diagnoses Date/Time ESOPHAGOGASTRODUODENOSCOPY Cirrhosis Alc oholic (HCC) 02/10/2022 8:45 AM CDT Hypertension Portal (HCC) Scheduled Referrals Name Type Priority Associated Order Schedule Diagnoses Research Study Outpatient Referral Routine Expect ed: Coordinator office 2 visit (clinic) (Approximate) , Expires: 01/01/2023 documented as of this encounter Visit Diagnoses Not on filedocumented in this encounter Care Teams Timber Appraiser Relationship Specialty Start Date End Date Elsewhere, Pcp PCP - General Family Medicine 03/10/20 11/30/21 [facility] [place] [facility] 08/25/21 Ervin Schroeder MD Referring Provider Family Medicine 03/24/21 [facility] [address] [place] [address] documented as of this encounter
--- OUTSIDE RECORDS SUMMARY | 2022-02-04 23:15 | XMS_ITS | Encounter Summary ---
:[address] Author Organization [facility] Address [address] [place] [address] Care Team Providers Name Role Phone Elsewhere, Pcp Primary Care Provider Unavailable Reason for Visit Transplant (Routine) - Closed Specialty Diagnoses / Procedures Referred By Contact Refer red To Contact Transplant Surgery / Diagnoses Cirrhosis Alcoholic (HCC) Abnormal Liver Function Test Ascites Pretransplant Recipient Evaluation Exam Preoperative Exam Warren Hernández, [facility] Transplant M.DSuma, M.P.H. [address] [place] [address] Referral ID Status Reason Start Date Expiration Date Visits Requ ested Visits Authorized [id number] Closed 08/25/2021 08/25/2022 1 1 Encounter Details Date Type Department Care Team Description 10/02/2021 Comprehensive Visit Ramirez Baraajs, Cirrhosis Alcoholic (HCC); Center for [facility], Abnormal Liver Function Test; Transplantation and MJules, Ph.D. Ascites; Clinical Regeneration [address] [place] nsplant Recipient Evaluation Exam; in [facility] Preoperative Exam [address] [facility] [address] [phone] Social History Tobacco Use Types Packs/Day Years [...] do you attend spiritism or Never 2021 anabaptism services? 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 - 10/02/2021 1:00 PM CDT SUBJECTIVE HISTORY OF PRESENT ILLNESS Ms. Carias is a 31-year-old woman from [place], [place], with alcohol- associated cirrhosis. Her disease was diagnosed in fall when she fell ill and was subsequently hospitalized. It appears that several months prior to that, she started to feel more fatigued and perhaps developed encephalopathy. She quit working. She also noticed that she was getting jaundiced in March of 2021. She was hospitalized in [place] and diagnosed with cirrhosis. This is secondary [...] Dinh M.D., Ph.D. CT CT Job ID: [id number]/mc documented in this encounter Plan of Treatment Upcoming Encounters Date Type Specialty Care Team Description [facility] Radiology Matthew Jerome 2 Encounter YTyrell M.D. [address] [place] [address] Hospital Gastroenterology and [facility] 2 Encounter Hepatology Tyrell Rodriguez M.D. 10[address] [place] [address] Surgery Gastroenterology and [facility] ESOPHAG OGASTRODUODENOSCOPY 2 Hepatology YTyrell M.D. [address] [place] [phone] Telemedicine Transplant 2 Lab Laboratory Medicine Karin, 2 Adeline Gannon M.D., Ph.D. [address] [place] [phone] Lab Laboratory Medicine Karin, 2 Adeline Gannon M.D., Ph.D. [address] [place] [phone] Office Visit Transplant Karin, 2 Adeline Gannon M.D., Ph.D. [address] [place] [phone] Office Visit Community Internal [facility], 2 Medicine Vernell Perez [address] [place] [phone] Appointment Radiology [facility] 2 YTyrell, Lilian [address] [place] [phone] Appointment Gastroenterology and Adrianne, 2 Hepatology Yue Burciaga M.D. [address] [place] [address] Office Visit Gastroenterology and Matthew Jerome 2 Hepatology Tyrell Rodriguez M.D. [address] [place] [phone] Appointment Radiology LuisMatthew abdul 2 Joshua RodriguezBLilian Staples [address] [place] [phone] Scheduled Procedures Name Priority Associated Diagnoses Date/Time ESOPHAGOGASTRODUODENOSCOPY Cirrhosis Alc oholic (HCC) 02/10/2022 8:45 AM CDT Hypertension Portal (HCC) documented as of this encounter Visit Diagnoses Diagnosis Cirrhosis Alcoholic (HCC) Abnormal Liver Function Test Ascites Pretransplant Recipient Evaluation Exam Preoperative Exam Cirrhosis Alcoholic (HCC) Hypertension Portal (HCC) documented in this encounter Care Teams Restaurant Shift Leader Relationship Specialty Start Date End Date Elsewhere, Pcp PCP - General Family Medicine 03/10/20 11/30/21 [facility] [place] lab 08/25/21 Ervin Schroeder MD Referring Provider Family Medicine 03/24/[address] [place] [phone] documented as of this encounter
--- OUTSIDE RECORDS SUMMARY | 2022-02-04 23:15 | XMS_ITS | Encounter Summary ---
:1990 Author Organization [facility] Address [address] [place] [address] Care Team Providers Name Role Phone Elsewhere, Pcp Primary Care Provider Unavailable Reason for Referral Outpatient (Routine) - Closed Specialty Diagnoses / Referred By Contact Referred To Procedures Contact Gastroenterology and Diagnoses Cirrhosis Alcoholic (HCC) Hypertension Portal (HCC) Thrombocytopenia (HCC) Abnormal Liver Function Test Deficiency Vitamin A Matthew Jerome [facility] Hepatology Lilian Santillan [address] [place] [address] Referral ID Status Reason Start Date Expiration Date Visits Requ ested Visits Authorized [id number] Closed 10/08/2021 10/08/2022 1 1 Scheduling Instructions 1 month follow up post transplant eval Reason for Visit Reason Comments Follow-up Outpatient (Routine) - Closed Specialty Diagnoses / Referred By Contact Referred To Procedures Contact Gastroenterology and Matthew Jerome [facility] Hepatology Lilian Santillan [address] [place] [phone] Referral ID Status Reason Start Date Expiration Date Visits Requ ested Visits Authorized [id number] Closed 08/05/2021 08/05/2022 1 1 Encounter Details Date Type Department Care Team Description 10/08/2021 Office Visit Department of Queenie, Matthew Cirrhosis Alco holic (HCC) (Primary Dx); Gastroenterology in [place], Hyperten neptali Portal (HCC); [place], [place] Lilian Thrombocytopenia (HCC); [address] [facility] 10[address] [facility] Abnormal Liver Function Test; [place] [address] [place], [place] Deficiency Vitamin A [phone] Social History Tobacco Use Types Packs/Day Years [...] do you attend anabaptist or Never 2021 adventism services? 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 - 10/08/2021 12:45 PM CDT [...] to complete the liver transplant evaluation in [place] later this week, per protocol. She states that she is transparent with the team and is willing to do anything requested that will help her get on the liver transplant list. We reviewed the recent consultation with surgery team, Cardiology, the social media developer as well as the pain clinic. The [...] liver transplant evaluation with the team in [place], pending transplant psychiatry consultation. Unfortunately this was rescheduled until October 22, 2021. I will await her consultation before I present her case to the liver Transplant selection committee in [place], to evaluate her candidacy as a team. [...] PCP ?? #15 Newly diagnosed PFO with [id number] atrial shunt: Echo done March 2020 # [...] [facility], Hepatology and Transplant hepatology [facility] documented in this encounter Plan of Treatment Upcoming Encounters Date Type Specialty Care Team Description Hospital Radiology Matthew Jerome 2 Encounter Tyrell Rodriguez M.D. [address] [place] [phone] Hospital Gastroenterology and Matthew Jerome 2 Encounter Hepatology Tyrell Rodriguez M.D. [address] [place] [phone] Surgery Gastroenterology and Matthew Jerome ESOPHAG OGASTRODUODENOSCOPY 2 Hepatology Tyrell Rodriguez M.D. [address] [place] [phone] Telemedicine Transplant 2 Lab Laboratory Medicine Karin, Olinda Gannon M.D., Ph.D. [address] [place] [address] [phone] Lab Laboratory Medicine Karin, 2 Adeline Gannon M.D., Ph.D. [address] [place] [phone] Office Visit Transplant Karin, 2 Adeline Gannon M.D., Ph.D. [address] [place] [phone] Office Visit [facility], 2 Solitario Perez P.A.-C. [address] [place] [address] Appointment Radiology Matthew Jerome 2 Y, M.B.B.SSuma, MJules [address] [place] [address] [phone] Appointment Gastroenterology and Adrianne, 2 Hepatology Yue Burciaga M.D. [address] [place] [address] [phone] Office Visit Gastroenterology and Matthew Jerome 2 Hepatology Jennifer M.B.B.SSuma, MJules [address] [place] [address] Appointment Radiology Matthew Jerome 2 Y M.B.B.SSuma, MJules [address] [place] [phone] Scheduled Procedures Name Priority Associated Diagnoses [...] M.D. LAB BLOOD ADD-ON Performing Organization Address City/State/[facility] Phon e Number [facility]- [address] [place] [address] [facility] [place] [address] System in [place] 2[address] [facility] (ABNORMAL) Prothrombin Time (PT) (12/02/2021 [...] M.D. LAB BLOOD ADD-ON Performing Organization Address City/State/[facility] Code Phon e Number [facility]- [address] [place] [address] [place] [address] System in [place] 2199 [facility] documented in this encounter Visit Diagnoses Diagnosis Cirrhosis Alcoholic (HCC) - Primary Hypertension Portal (HCC) Thrombocytopenia (HCC) Abnormal Liver Function Test Deficiency Vitamin A Cirrhosis Alcoholic (HCC) Hypertension Portal (HCC) documented in this encounter Additional Health Concerns Assessment Noted Time PHQ-9 Depression Total Score: 10 10/06/2021 5:00 PM CD T documented as of this encounter Care Teams Flow Floor Attendant Relationship Specialty Start Date End Date Elsewhere, Pcp PCP - General Family Medicine 03/10/20 11/30/21 [facility] 08/25/21 Ervin Schroeder MD Referring Provider Family Medicine 03/24/[address] [place] [address] documented as of this encounter
--- OUTSIDE RECORDS SUMMARY | 2022-02-04 23:15 | XMS_ITS | Encounter Summary ---
:1990 Author Organization [facility] Address [address] [place] [address] Care Team Providers Name Role Phone Elsewhere, Pcp Primary Care Provider Unavailable Reason for Referral Transplant (Routine) - Closed Specialty Diagnoses / Procedures Referred By Contact Refer red To Contact Transplant Surgery / Adeline Frazier [facility] Transplant Lilian Gannon, Ph.D. [address] [place] [phone] Referral ID Status Reason Start Date Expiration Date Visits Requ ested Visits Authorized [id number] Closed 10/10/2021 10/10/2022 1 1 Reason for Visit Transplant (Routine) - Closed Specialty Diagnoses / Procedures Referred By Contact Refer red To Contact Transplant Surgery / Diagnoses Cirrhosis Alcoholic (HCC) Abnormal Liver Function Test Ascites Pretransplant Recipient Evaluation Exam Preoperative Exam Warren Hernández [facility] Transplant Lilian, M.P.H. [address] [place] [address] Referral ID Status Reason Start Date Expiration Date Visits Requ ested Visits Authorized [id number] Closed 08/25/2021 08/25/2022 1 1 Encounter Details Date Type Department Care Team Description 10/10/2021 Telemedicine Warren Carter M.D., M.P.H. [address] [place], [place] [phone] Alcohol Moderate Or Severe Use Disorder (Dependence) Uncomplicated (HCC) (Primary Dx); [facility] Cannabis Use Unspecified Uncomplicated; Transplantation and Long Ter m Use Of Opiate Analgesic; Clinical Regeneration in [place] otine Dependence Cigarettes; [place], [place] Mood Disorder (HCC); [address] [facility] Anxiety Disorder Unspecified ; [place] [address] Eating Disorder; [phone] Hepatic Encepha lopathy Without Coma (HCC); Chronic [...] do you attend mormonism or Never 2021 congregation services? 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 - 10/10/2021 8:00 AM CDT Service Date: 10/10/21 DEMOGRAPHICS Patient: Catia Carias Date of : 1990 Age: 31 y.o. Gender: female Address: [address] [place] [phone] Referral source: Liver Transplant Team. Consult conducted via real-time audio/video technology by Dr. Marva Frazier and Zenobia Hollingsworth MA, [facility] in [facility] to the patient in patient's home. CIRCUMSTANCES OF SERVICE INITIATION / REASON FOR REFERRAL Pre-Liver transplant addiction psychiatry evaluation. HISTORY OF PRESENT ILLNESS Ms. Catia Bourgeois is??a very pleasant 31 y.o. partnered female under consideration for liver transplantation. The patient has a history of anxiety, depression, eating disorder and chronic pain. She was previously seen by Radhames Neumann, Ph.D., L.P. in [facility] (Pain [facility] abilitation) on 10/06/2021 [...] driving while sleeping. Date of Last Use: Has the patient used in the past [...] in the past 30 days? No. OTHER Thmj-sma-Beegfkm: No. Other: No. Compulsive behaviors: No history [...] severe use disorder) Alcohol Total: 6 / 11 Failed attempts to reduce/stop, Amount of time obtaining/using/recovering, Cravings, Use in hazardous situations, Persistent use despite emotional and physical effects and Tolerance Cannabis Total: 7 / 11 Often taken in larger amounts or over [...] visit. SOCIAL HISTORY provided by Joel Tan [facility], VIDEO PRODUCTION SPECIALIST Pager: [phone] note dated 09/29/2021. Today, the information below was reviewed, verified and updated with the patient. Family of Origin: Family of origin: The patient was raised in [place], [place]. Her parents when she was 20 years old. Her mother remarried. The patient calls her step- father, Siva, her bonus father. The patient's mother and step-father live in [place], [place]. The patient's father did not remarry. He lives in [place], [place], which is 10-12 minutes from the [...] Degree. The patient has her associates of [email or web address] degree in photography. Employment: Disabled: The patient was previously worked at [employer] in [place] until January 2021 when she became ill. History: No background. Spirituality / Anglican / Culture: Describe spiritual beliefs: Patient does not identify with any congregation or spiritual beliefs. Cultural background: White [1] [...] by history; currently medicinal cannabis use #3 Shelter Use Of Opiate Analgesic #4 Nicotine Dependence [...] management per Radhames Neumann, Ph.D., L.P. in [facility] (Pain Rehabilitation), 10/06/2021: - virtual [...] in the patient's local community and at [facility]. - A handout about accessing online recovery meetings such as AA, NA, OnSwipe, etc. - A set of forms to [...] of liver decompensation - inpatient hospitalization at [facility] 03/2021; MELD-Na score: 32 at 09/30/2021 4. [...] - Follow up with Transplant Addiction Counselor (GARY) in 3 months. - Labs: Urine Drug Screen with Confirmation, Ethyl Glucuronide with Confirmation and Phosphatidylethanol at the earliest available time and in 3 months. Time: spent a total of 90 minutes with the patient's care, reviewing available medical records, discussing case with Zenobia Hollingsworth MA, [facility], documenting results of evaluation and treatment recommendations as well as counseling and coordination of care. Collateral information: Collateral information not needed at this time. Electronically signed by: Zenobia Hollingsworth M.A., Nathalie 10/10/21 documented in this encounter Plan of Treatment Upcoming Encounters Date Type Specialty Care Team Description Hospital Radiology [facility] 2 Encounter Tyrell Rodriguez M.D. [address] [place] [phone] [facility] Gastroenterology and [facility] 2 Encounter Hepatology Tyrell Rodriguez M.D. [address] [place] [phone] Surgery Gastroenterology and [facility] ESOPHAG OGASTRODUODENOSCOPY 2 Hepatology Tyrell Rodriguez M.D. [address] [place] [phone] Telemedicine Transplant 2 Lab Laboratory Medicine Karin, Olinda Gannon M.D., Ph.D. [address] [place] [phone] Lab Laboratory Medicine Olinda Frazier M.D., Ph.D. [address] [place] [phone] Office Visit Transplant Olinda Frazier M.D., Ph.D. [address] [place] [phone] Office Visit Community [facility], 2 Medicine Vernell Perez [address] [place] [phone] Appointment Radiology Matthew Jerome 2 YJoshuaBSumaBLilian Bedolla [address] [place] [address] [phone] Appointment Gastroenterology and Adrianne, 2 Hepatology Yue Burciaga M.D. [address] [place] [phone] Office Visit Gastroenterology and Matthew Jerome 2 Hepatology Joshua RodriguezBSumaBLilian Bedolla [address] [place] [phone] Appointment Radiology Matthew Jerome 2 YJoshuaB.B.Lilian [place] [address] [place] [phone] Scheduled Orders Name Type Priority Associated [...] 7:09 Clean Catch) CDT AM CDT Adeline rFazier M.D., Ph.D. LAB URINE ORDERABLES Performing Organization Address City/State/ZIP Code Phon e Number [facility] [address] [place], [place] [address] [place] [address] CENTER [facility] [place] [address] Laboratory Medicine and Pathology [address] [place] Ethyl Glucuronide Confirmation, Random, Urine (12/15/2021 5:51 PM CDT) [facility] gist Method Time Signature Ethyl Glucuronide Negative Cutoff: 12/17/2021 [facility] Confirmation, U 250 ng/mL 10:34 AM CDT Ethyl Sulfate Negative Cutoff: 12/17/2021 [facility] 100 ng/mL 10:34 AM CDT Ethyl Gluc/Sulfate Negative. 12/17/2021 [facility] Interpretation 10:34 AM CDT Comment: ----ADDITIONAL INFORMATION---- This report is intended for use in clini ada monitoring and management of patients. ??It is not intended for use i n employment-related testing. This test was developed and its performa nce characteristics determined by [facility] in a manner consistent with CLIA requirements. [...] Organization Address City/State/ZIP Code Phon e Number [facility] [address] [place], [place] [address] SUPPORT [facility] [address] Laboratory Medicine and Pathology [address] [place] Phosphatidylethanol (Peth), whole blood- Sent Out Lab (12/15/2021 5:39 PM CDT) Component Value Ref Range Test Analysis Performed [facility] t Method Time At Signature Phosphatidylethanol NEGATIVE NEGATIVE 12/26/2021 MTI (PEth) ng/mL 1:01 PM CDT Comment: Analyzed compound: PEth 16:0/18:1. ? 9-uxlckladr-5-woojtq-zn-aeuxocf-3 -phosphoethanol. ? Analysis performed by Liquid Chromatogra [...] Organization Address City/State/ZIP Code Phon e Number [facility]. [address] [place] [address] 2 [place] [address] [place] [address] documented in this encounter Visit Diagnoses Diagnosis Alcohol Moderate Or Severe Use Disorder (Dependence) Uncomplicated (HCC) - Primary Cannabis Use Unspecified Uncomplicated Shelter Use Of Opiate Analgesic Nicotine Dependence [...] documented as of this encounter Care Teams Automotive Parts Interpreter Relationship Specialty Start Date End Date Elsewhere, Pcp PCP - General Family Medicine 03/10/20 11/30/21 [facility] [place] [facility] 08/25/21 Ervin Schroeder MD Referring Provider Family Medicine 03/24/[address] [place] [phone] documented as of this encounter
--- OUTSIDE RECORDS SUMMARY | 2022-02-04 23:15 | XMS_ITS | Encounter Summary ---
:1990 Author Organization [facility] Address [address] [place] [address] Care Team Providers Name Role Phone Elsewhere, Pcp Primary Care Provider Unavailable Reason for Visit Transplant (Routine) - Closed Specialty Diagnoses / Procedures Referred By Contact Refer red To Contact Transplant Surgery / Diagnoses Cirrhosis Alcoholic (HCC) Abnormal Liver Function Test Ascites Pretransplant Recipient Evaluation Exam Preoperative Exam Warren Hernández, [facility] Transplant M.D., M.P.H. [address] [place] [address] Referral ID Status Reason Start Date Expiration Date Visits Requ ested Visits Authorized [id number] Closed 08/25/2021 08/25/2022 1 1 Encounter Details Date Type Department Care Team Description 10/02/2021 Comprehensive Visit Ramirez Adler, Cirrhosis Alcoholic (HCC); [facility] [place], Abnormal Liver Function Test; Transplantation and M.D. Ascites; Clinical Regeneration [address] [place] [address] Pretransplant Recipient Evaluation Exam; in [place], [place] Preoperative Exam [place] [phone] [place] [address] [place], [place] (Work) [phone] Social History Tobacco Use Types Packs/Day Years [...] do you attend cheondoism or Never 2021 adventism services? 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 - 10/02/2021 3:00 PM CDT REASON [...] Care Team Description [facility] Radiology [facility] 2 Encounter Tyrell Rodriguez M.D. [address] [place] [phone] [facility] Gastroenterology and [facility] 2 Encounter Hepatology Tyrell Rodriguez M.D. [address] [place] [phone] Surgery Gastroenterology and [facility] ESOPHAG OGASTRODUODENOSCOPY 2 Hepatology Y M.B.BLilian Bedolla [address] [place] [address] Telemedicine Transplant 2 Lab Laboratory Medicine Karin, 2 Adeline Gannon M.D., Ph.D. [address] [place] [phone] Lab Laboratory Medicine Karin, 2 Adeline Gannon M.D., Ph.D. [address] [place] [phone] Office Visit Transplant Karin, 2 Adeline Gannon M.D., Ph.D. [address] [place] [address] [phone] Office Visit [facility], 2 Medicine Vernell Perez [address] [place] [phone] Appointment Radiology Matthew Jerome 2 YVikBLilian Bedolla [address] [place] [phone] Appointment Gastroenterology and [place], 2 Hepatology Yue Burciaga M.D. [address] [place] [phone] Office Visit Gastroenterology and Matthew Jerome 2 Hepatology Vik RodriguezBLilian Bedolla [address] [place] [phone] Appointment Radiology Matthew Jerome 2 YTyrell, Lilian [address] [place] [address] Scheduled Procedures Name Priority Associated Diagnoses Date/Time ESOPHAGOGASTRODUODENOSCOPY Cirrhosis Alc oholic (HCC) 02/10/2022 8:45 AM CDT Hypertension Portal (HCC) documented as of this encounter Visit Diagnoses Diagnosis Cirrhosis Alcoholic (HCC) Abnormal Liver Function Test Ascites Pretransplant Recipient Evaluation Exam Preoperative Exam Cirrhosis Alcoholic (HCC) Hypertension Portal (HCC) documented in this encounter Care Teams Pet Handler Relationship Specialty Start Date End Date Elsewhere, Pcp PCP - General Family Medicine 03/10/20 11/30/21 [facility] [place] lab 08/25/21 Ervin Schroeder MD Referring Provider Family Medicine 03/24/[address] [place] [phone] documented as of this encounter
--- OUTSIDE RECORDS SUMMARY | 2022-02-04 23:15 | XMS_ITS | Encounter Summary ---
:1990 Author Organization [facility] Address [address] [place] [address] Care Team Providers Name Role Phone Elsewhere, Pcp Primary Care Provider Unavailable Encounter Details Date Type Department Care Team Description 10/07/2021 Hospital Encounter Department of Rut Hernández s Alcoholic (HCC); Pulmonary Medicine Warren Schaefer M.D., Abnorm al Liver Function Test; in [facility] Ascites; [place] [address] [place] [address] Pretransplant Recipient Evaluation Exam; [address] [place], [place] Preoperative Exam [place], [place] [phone] Social History Tobacco Use Types Packs/Day [...] do you attend taoism or Never 2021 catholic services? Do you belong to any clubs or No 07/17/2021 organizations such as taoism groups, [employer])s, [employer] or athletic groups, or school groups? 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 [address] [place] [address] [phone] [facility] and [facility] 2 Encounter Hepatology Tyrell Rodriguez M.D. [address] [place] [phone] Surgery Gastroenterology and [facility] ESOPHAG OGASTRODUODENOSCOPY 2 Hepatology Tyrell Rodriguez M.D. [address] [place] [address] [phone] Telemedicine Transplant 2 Lab Laboratory Medicine Karin, 2 Adeline Gannon M.D., Ph.D. [address] [place] [phone] Lab Laboratory Medicine Karin, Olinda Gannon M.D., Ph.D. [address] [place] [phone] Office Visit Transplant Karin, Olinda Gannon M.D., Ph.D. [address] [place] [phone] Office Visit Community Internal [facility], 2 Medicine Vernell Perez [address] [place] [phone] Appointment Radiology Mattehw Jerome 2 YJoshuaBSumaBLilian Bedolla [address] [place] [phone] Appointment Gastroenterology and Adrianne 2 Hepatology Yue Burciaga M.D. [address] [place] [phone] Office Visit Gastroenterology and Matthew Jerome 2 Hepatology Joshua RodriguezBSumaBLilian Bedolla [address] [place] [phone] Appointment Radiology Matthew Jerome 2 Y M.B.B.SLilian Moise [address] [place] [phone] Scheduled Procedures Name Priority Associated Diagnoses [...] CDT) P athologist Signature FVC 4.04 L [facility] FVC% 111 % [facility] SU[facility] FVCLLN 2.88 L [facility] SUITE FEV1 3.62 L [facility] SU[facility] FEV1% 118 % [facility] SUITE [id number] 2.45 L [facility] SUITE FEV1/FVC 90 % [facility] SU[facility] FEV1/FVCLLN 73 % [facility] FEF 25-75 5.30 L/sec [facility] VXN32-93% 154 % [facility] SUITE [id number] 2.20 L/sec [facility] SVC 4.19 L [facility] SU[facility] RV 1.17 L [facility] SUITE RVULN 2.33 L [facility] SUITE TLC 5.36 L [facility] SUITE TLC% 111 % [facility] SUITE TLCLLN 3.47 L [facility] SUITE RV/TLC 22 % [facility] SUITE RV/TLC% 72 % [facility] SUITE RV/TLCuln 44 % [facility] SUITE DLCO 16.63 ml/min/mmHg [facility] SUITE DLCO% 77 % [facility] SUITE DLCOlln 15.76 ml/min/mmHg [facility] SUITE DLCOc 20.09 ml/min/mmHg [facility] SUITE DLCOc% 94 % [facility] SUITE VA 5.32 L [facility] SUITE VA% 115 % [facility] SUITE VAlln 3.76 L [facility] Height 159.00 [facility] Weight in Kg 59.70 [facility] BMI 23.6 [facility] Specimen (Source) Anatomical Collection Method Collection Time Re ceived Time Location / / Volume Laterality 10/07/2021 2:32 PM CDT Impressions [facility] - 10/10/2021 8:25 AM C DT TECHNICAL [...] Organization Address City/State/ZIP Code Phon e Number [facility] SUITE [facility] SU[address] NA documented in this encounter Visit Diagnoses Diagnosis Cirrhosis Alcoholic (HCC) Abnormal Liver Function Test [facility] Pretransplant Recipient Evaluation Exam Preoperative Exam Cirrhosis Alcoholic (HCC) Hypertension Portal (HCC) documented in this encounter Additional Health Concerns Assessment Noted Time PHQ-9 Depression Total Score: 10 10/06/2021 5:00 PM CD T documented as of this encounter Care Teams Featheredger And Reducer Machine Relationship Specialty Start Date End Date Elsewhere, Pcp PCP - General Family Medicine 03/10/20 11/30/21 [facility] [place] lab 08/25/21 Ervin Schroeder MD Referring Provider Family Medicine 03/24/[address] [place] [address] documented as of this encounter
--- OUTSIDE RECORDS SUMMARY | 2022-02-04 23:15 | XMS_ITS | Encounter Summary ---
:1990 Author Organization [facility] Address [address] [place] [address] Care Team Providers Name Role Phone Elsewhere, Pcp Primary Care Provider Unavailable Reason for Referral Outpatient (Routine) - Closed Specialty Diagnoses / Procedures Referred By Contact Refer red To Contact Diagnoses Cirrhosis Alcoholic (HCC) Abnormal Liver Function Test [facility] Pretransplant Recipient Evaluation Exam Preoperative Exam Warren Hernández M.D., [facility] [place] Procedures BMD Bone Density Spine Hips M.P.H. [address] [place] [address] Referral ID Status Reason Start Date Expiration Date Visits Requ ested Visits Authorized [id number] Closed 08/25/2021 08/25/2022 1 1 Reason for Visit Outpatient (Routine) - Closed Specialty Diagnoses / Procedures Referred By Contact Refer red To Contact Diagnoses Cirrhosis Alcoholic (HCC) Abnormal Liver Function Test [facility] Pretransplant Recipient Evaluation Exam Preoperative Exam Warren Hernández M.D., [facility] [place] Region Procedures BMD Bone Density Spine Hips M.P.H. [address] [place] [address] Referral ID Status Reason Start Date Expiration Date Visits Requ ested Visits Authorized [id number] Closed 08/25/2021 08/25/2022 1 1 Encounter Details Date Type Department Care Team Description 10/09/2021 Hospital Encounter Department of Edgar, Cirrhosi s Alcoholic (HCC); Radiology, Warren Schaefer M.D., Abnormal Angelica er Function Test; [facility], M.P.H. Ascites; in [place], [address] [place] [address] Pretransplant Recipient Evaluation Exam; [place], [place] Preoperative Exam [address] [address] [place] [phone] [place], [place] (Work) [phone] Social History Tobacco Use [...] do you attend amish or Never 2021 scientology services? 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 2 Encounter Tyrell Rodriguez M.D. [address] [place] [address] [phone] [facility] Gastroenterology and [facility] 2 Encounter Hepatology Tyrell Rodriguez M.D. [address] [place] [phone] Surgery Gastroenterology and [facility] ESOPHAG OGASTRODUODENOSCOPY 2 Hepatology Tyrell Rodriguez M.D. [address] [place] [phone] Telemedicine Transplant 2 Lab Laboratory Medicine Karin, Olinda Gannon M.D., Ph.D. [address] [place] [phone] Lab Laboratory Medicine Karin, Olinda Gannon M.D., Ph.D. [address] [place] [address] [phone] Office Visit Transplant Olinda Frazier M.D., Ph.D. [address] [place] [address] [phone] Office Visit Community Internal [facility], 2 Solitario Perez P.A.-C. [address] [place] [phone] Appointment Radiology Matthew Jerome 2 YTyrell M.D. [address] [place] [phone] Appointment Gastroenterology and Adrianne, 2 Hepatology Yue Burciaga M.D. [address] [place] [phone] Office Visit Gastroenterology and Matthew Jerome 2 Hepatology Tyrell Rodriguez M.D. [address] [place] [phone] Appointment Radiology Matthew Jerome 2 YTyrell M.D. [address] [place] [phone] Scheduled Procedures Name Priority Associated Diagnoses Date/Time [...] Mineral Density (BMD) analysis perf ormed on Aisle50 with serial number [id number]. ? FINDINGS: Left Hip: Femur Neck: BMD [...] including images and graphs, is available in [email or web address]. In the absence of other causes of [...] Mineral Density (BMD) analysis perf ormed on Aisle50 with serial number [id number]. FINDINGS: Left Hip: Femur Neck: BMD = [...] as of this encounter Care Teams Patient Care Specialist Relationship Specialty Start Date End Date Elsewhere, Pcp PCP - General Family Medicine 03/10/20 11/30/21 [facility] [place] lab 08/25/21 Ervin Schroeder MD Referring Provider Family Medicine 03/24/[address] [place] [address] documented as of this encounter
--- OUTSIDE RECORDS SUMMARY | 2022-02-04 23:15 | XMS_ITS | Encounter Summary ---
:1990 Author Organization [facility] Address [address] [place] [address] Care Team Providers Name Role Phone Elsewhere, Pcp Primary Care Provider Unavailable Reason for Referral Outpatient (Routine) - Closed Specialty Diagnoses / Procedures Referred By Contact Refer brianda To Contact Nicotine Dependence Jessy Crain M.A., C.T.T.S. [address] [place] [address] Referral ID Status Reason Start Date Expiration Date Visits Requ ested Visits Authorized [id number] Closed 10/01/2021 10/01/2022 1 1 Scheduling Instructions [...] Referred By Contact Refer brianda To Contact Pulmonary Medicine / Diagnoses Cirrhosis Alcoholic (HCC) Abnormal Liver Function Test [facility] Pretransplant Recipient Evaluation Exam Preoperative Exam Warren Hernández, [facility] Nicotine Dependence Lilian, M.P.H. [address] [place] [address] Referral ID Status Reason Start Date Expiration Date Visits Requ ested Visits Authorized [id number] Closed 08/25/2021 08/25/2022 1 1 Encounter Details Date Type Department Care Team Description 10/01/2021 Clinical Support Department of Elier Hernández M.D., M.P.H. [address] [place] [address] Nicotine Dependence Cigarettes (Primary Dx); Nicotine Jessy Crain M.A., C.T.T.S. 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 - 10/01/2021 10:00 AM CDT SUBJECTIVE CHIEF COMPLAINT / REASON FOR VISIT Tobacco use disorder HISTORY OF PRESENT ILLNESS Catia Carias is a 31 y.o. female who was seen at [place] [address] and is being evaluated for Tobacco Use [...] provided the patient with educational materials and [facility] contact information. We have scheduled a [...] Type Specialty Care Team Description Hospital Radiology [facility] 2 Encounter Tyrell Rodriguez M.D. [address] [place] [address] [phone] Hospital Gastroenterology and [facility] 2 Encounter Hepatology Tyrell Rodriguez M.D. [address] [place] [phone] Surgery Gastroenterology and [facility] ESOPHAG OGASTRODUODENOSCOPY 2 Hepatology Tyrell Rodriguez M.D. [address] [place] [phone] Telemedicine Transplant 2 Lab Laboratory Medicine Olinda Frazier M.D., Ph.D. [address] [place] [phone] Lab Laboratory Medicine Olinda Frazier M.D., Ph.D. [address] [place] [address] [phone] Office Visit Transplant Olinda Frazier M.D., Ph.D. [address] [place] [phone] Office Visit [facility] Internal [facility], 2 Solitario Perez P.A.-C. [address] [place] [phone] Appointment Radiology Matthew Jerome 2 YVikBLilian Bedolla [address] [place] [phone] Appointment Gastroenterology and Adrianne 2 Hepatology Yue Burciaga M.D. [address] [place] [phone] Office Visit Gastroenterology and Matthew Jerome 2 Hepatology Vik RodriguezBLilian Bedolla [address] [place] [address] [phone] Appointment Radiology Matthew Jerome 2 YJoshuaB.B.Lilian [place] [address] [place] [address] [phone] Scheduled Procedures Name Priority Associated Diagnoses Date/Time [...] (HCC) documented in this encounter Care Teams Tray Line Worker Relationship Specialty Start Date End Date Elsewhere, Pcp PCP - General Family Medicine 03/10/20 11/30/21 [facility] [place] lab 08/25/21 Ervin Schroeder MD Referring Provider Family Medicine 03/24/[address] [place] [phone] documented as of this encounter
--- OUTSIDE RECORDS SUMMARY | 2022-02-04 23:15 | XMS_ITS | Encounter Summary ---
:1990 Author Organization [facility] Address [address] [place] [address] Care Team Providers Name Role Phone Elsewhere, Pcp Primary Care Provider Unavailable Reason for Referral Behavioral Health (Routine) - Canceled Specialty Diagnoses / Procedures Referred By Contact Refer red To Contact Diagnoses Pain Leg Bilateral Radhames Neumann, [facility] Procedures Complex persistent pain program Ph.D., L.P. [address] [place] [phone] Referral ID Status Reason Start Date Expiration Date Visits V isits Requested Authorized [id number] Canceled 10/06/2021 10/06/2022 1 1 Reason for Visit Transplant (Routine) - Authorized Specialty Diagnoses / Procedures Referred By Contact Refer red To Contact Transplant Surgery / Diagnoses Cirrhosis Alcoholic (HCC) Abnormal Liver Function Test [facility] Pretransplant Recipient Evaluation Exam Preoperative Exam Warren Hernández, [facility] Transplant M.Jeri, M.P.H. [address] [place] [address] Referral ID Status Reason Start Date Expiration Date Visits V asher Requested Authorized [id number] Authorized 08/25/2021 08/25/2022 1 1 Encounter Details Date Type Department Care Team Description 10/06/2021 Comprehensive Visit Warren Middleton M.D., M.P.H. [address] [place] [address] Pain Leg Bilateral (Primary Dx); [facility] Radhames Neumann, Ph.D., L.P. [address] [place] [phone] Cirrhosis Alcoholic (HCC); Transplantation and Abnormal Liver Function Test; Clinical Regeneration Ascite s; in [place], Pretransplant Recipient Evaluation Exam; [place] Preoperative Exam [address] [place] [address] [phone] Social History Tobacco Use Types Packs/Day Years [...] do you attend mormon or Never 2021 druze services? 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 [...] at age 19 Overuse of prescribed or scxa-kpv-tijreig medication: none. She notes she never runs [...] Type Specialty Care Team Description Hospital Radiology [facility], Matthew 2 Encounter Tyrell Rodriguez M.D. [address] [place] [phone] Hospital Gastroenterology and Mousa, Matthew 2 Encounter Hepatology Tyrell Rodriguez M.D. [address] [place] [phone] Surgery Gastroenterology and Mousa, Matthew ESOPHAG OGASTRODUODENOSCOPY 2 Hepatology Tyrell Rodriguez M.D. [address] [place] [phone] Telemedicine Transplant 2 Lab Laboratory Medicine Karin, 2 Adeline Gannno M.D., Ph.D. [address] [place] [phone] Lab Laboratory Medicine [place], 2 Adeline Gannon M.D., Ph.D. [address] [place] [phone] Office Visit Transplant Karin, 2 Adeline Gannon M.D., Ph.D. [address] [place] [phone] Office Visit [facility], 2 Medicine Vernell Perez [address] [place] [phone] Appointment Radiology Matthew Jerome 2 Y, M.B.B.SSuma, Lilian [address] [place] [phone] Appointment Gastroenterology and Adrianne, 2 Hepatology Yue Burciaga M.D. [address] [place] [phone] Office Visit Gastroenterology and Matthew Jerome 2 Hepatology Jennifer M.B.B.SLilian Moise [address] [place] [phone] Appointment Radiology Matthew Jerome 2 Y M.B.B.SLilian Moise [address] [place] [phone] Scheduled Procedures Name Priority Associated Diagnoses [...] documented as of this encounter Care Teams Authorizer Relationship Specialty Start Date End Date Elsewhere, Pcp PCP - General Family Medicine 03/10/20 11/30/21 [facility] [place] lab 08/25/21 Ervin Schroeder MD Referring Provider Family Medicine 03/24/[address] [place] [phone] documented as of this encounter
--- OUTSIDE RECORDS SUMMARY | 2022-02-04 23:15 | XMS_ITS | Encounter Summary ---
:1990 Author Organization [facility] Address [address] [place] [address] Care Team Providers Name Role Phone Elsewhere, Pcp Primary Care Provider Unavailable Encounter Details Date Type Department Care Team Description 10/08/2021 Clinical Communication Department of [facility] Gastroenterology in [place], [place] L.P.N. 1025 [facility] [address] [place] [address] [place], [place] [phone] Social History Tobacco Use Types Packs/Day [...] do you attend bahai or Never 2021 confucianism services? 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 [address] [place] [phone] Hospital Gastroenterology and Mousa, Matthew 2 Encounter Hepatology Tyrlel Rodriguez, Lilian [address] [place] [phone] Surgery Gastroenterology and Mousa, Matthew ESOPHAG OGASTRODUODENOSCOPY 2 Hepatology Tyrell Rodriguez M.D. [address] [place] [phone] Telemedicine Transplant 2 Lab Laboratory Medicine Karin, 2 Adeline Gannon M.D., Ph.D. [address] [place] [phone] Lab Laboratory Medicine Karin, 2 Adeline Gannon M.D., Ph.D. [address] [place] [address] [phone] Office Visit Transplant Karin, 2 Adeline Gannon M.D., Ph.D. [address] [place] [address] [phone] Office Visit [facility], 2 Medicine Vernell Perez [address] [place] [phone] Appointment Radiology [facility] [place], Matthew 2 Tyrell Rodriguez, Lilian [address] [place] [phone] Appointment Gastroenterology demian Silver, 2 Hepatology Yue Burciaga M.D. [address] [place] [phone] Office Visit Gastroenterology and Matthew Jerome 2 Hepatology Tyrell Rodriguez, Lilian [address] [place] [address] [phone] Appointment Radiology LuisMatthew abdul 2 Tyrell Rodriguez M.D. [address] [place] [address] [phone] Scheduled Procedures Name Priority Associated Diagnoses Date/Time ESOPHAGOGASTRODUODENOSCOPY Cirrhosis Alc oholic (HCC) 02/10/2022 8:45 AM CDT Hypertension Portal (HCC) documented as of this encounter Visit Diagnoses Not on filedocumented in this encounter Additional Health Concerns Assessment Noted Time PHQ-9 Depression Total Score: 10 10/06/2021 5:00 PM CD T documented as of this encounter Care Teams Logistics Lead Relationship Specialty Start Date End Date Elsewhere, Pcp PCP - General Family Medicine 03/10/20 11/30/21 [facility] [place] [facility] 08/25/21 Ervin Schroeder MD Referring Provider Family Medicine 03/24/[address] [place] [phone] documented as of this encounter
--- OUTSIDE RECORDS SUMMARY | 2022-02-04 23:16 | XMS_ITS | Encounter Summary ---
:1990 Author Organization [facility] Address [address] [place] [address] Care Team Providers Name Role Phone Elsewhere, Pcp Primary Care Provider Unavailable Reason for Referral MRI/CAT/PET Scan (Routine) - Closed Specialty Diagnoses / Procedures Referred By Contact Refer red To Contact Radiology Diagnoses Fatty Liver Failure Liver (HCC) Cirrhosis Alcoholic (HCC) Preoperative Exam Ascites Abnormal Liver Function Test Warren Hernández M.D., [facility] Region Procedures CT Abdomen without and with IV Contrast M.P.H. [address] [place] [address] Referral ID Status Reason Start Date Expiration Date Visits Requ ested Visits Authorized [id number] Closed 09/08/2021 09/08/2022 1 1 Reason for Visit MRI/CAT/PET Scan (Routine) - Closed Specialty Diagnoses / Procedures Referred By Contact Refer red To Contact Radiology Diagnoses Fatty Liver Failure Liver (HCC) Cirrhosis Alcoholic (HCC) Preoperative Exam Ascites Abnormal Liver Function Test Warren Hernández M.D., [facility] Region Procedures CT Abdomen without and with IV Contrast M.P.H. [address] [place] [address] Referral ID Status Reason Start Date Expiration Date Visits Requ ested Visits Authorized [id number] Closed 09/08/2021 09/08/2022 1 1 Encounter Details Date Type Department Care Team Description 09/22/2021 Hospital Encounter Department of Deena Hernández Li fred; Radiology, [place] Warren Schaefer M.D., Greg segal Liver (HCC); [facility], in M.P.H. Cirrhosis Alcoholic (HCC); [place], [place] [address] [facility] Preoperative Exam; [address] [place], [place] Ascites; [place] [address] Abnormal Liver Function Test [phone] Social History Tobacco Use Types Packs/Day [...] do you attend zoroastrian or Never 2021 quaker services? 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 [address] [place] [address] Hospital Gastroenterology and Matthew Jerome 2 Encounter Hepatology Tyrell Rodriguez M.D. [address] [place] [address] Surgery Gastroenterology and Mdchantell Matthew ESOPHAG OGASTRODUODENOSCOPY 2 Hepatology Tyrell Rodriguez M.D. [address] [place] [address] Telemedicine Transplant 2 Lab Laboratory Medicine Karin, 2 Adeline Gannon M.D., Ph.D. [address] [place] [phone] Lab Laboratory Medicine Karin, 2 Adeline Gannon M.D., Ph.D. [address] [place] [phone] Office Visit Transplant Karin, 2 Adeline Gannon M.D., Ph.D. [address] [place] [phone] Office Visit [facility], 2 Medicine Vernell Perez [address] [place] [address] [phone] Appointment Radiology Matthew Jerome 2 Y, M.B.Lilian Salas [address] [place] [phone] Appointment Gastroenterology and Adrianne 2 Hepatology Yue Segal M.D. [address] [place] [phone] Office Visit Gastroenterology and Matthew Jerome 2 Hepatology Tyrell Rodriguez M.D. [address] [place] [phone] Appointment Radiology Matthew Jerome 2, M.B.B.S., M.D. [address] [place] [phone] Scheduled Procedures Name Priority Associated Diagnoses Date/Time [...] intravenous, Once in imaging, contrast, Starting on Wed09/22/21 at 1530, For 1 dose, Imaging Protocol [...] dose documented in this encounter Care Teams Bark Press Operator Relationship Specialty Start Date End Date Elsewhere, Pcp PCP - General Family Medicine 03/10/20 11/30/21 [facility] [place] [facility] 08/25/21 Ervin Schroeder MD Referring Provider Family Medicine 03/24/[address] [place] [phone] documented as of this encounter
--- OUTSIDE RECORDS SUMMARY | 2022-02-04 23:16 | XMS_ITS | Encounter Summary ---
:1990 Author Organization [facility] Address [address] [place] [address] Care Team Providers Name Role Phone Elsewhere, Pcp Primary Care Provider Unavailable Reason for Visit Reason Onset Date Comments [facility]/26/2021 Encounter Details Date Type Department Care Team Description 09/26/2021 Clinical Communication Ramirez Amador, [facility] for [place], Transplantation and C.M.A. Clinical Regeneration in [phone] [place], [place] (Work) [address] [place] [phone] Social History Tobacco Use Types Packs/Day [...] do you attend jainism or Never 2021 worship services? 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 - 09/26/2021 10:47 AM CDT Recipient Pre-Transplant Review Document: Organ: Kidney ____ Liver _X___ Heart ____ Lung ____ Pancreas ____ BMT ____ Insurance Carrier: [employer] 2B Demographic Information: __X__ Confirmed information is [...] coordination of benefits: deductible, co-insurance, co-pay, or [id number] maximum. __X__ Patient understands that this is [...] surgery. _X___ Handed patient Financial Assistance Policy. (DS4947-08) PATIENT EDUCATION Education Material: __X__ Provided patient with an educational guide (Planning for Your Transplant: A Financial Guide TW13774) to assist in outlining financial responsibilities related [...] _X___ Advised recipient to notify [facility] with any insurance updates or changes; failure to do so may impede transplant eligibility. __X__ Discussed financial concerns related to ability to pay for services and post-transplant care. Including, Financial Assistance policy if financial hardship was identified. __X__ Provided Transplant Financial business card with our contact phone number of [phone] if patient were to have additional questions. __X__ Annual benefit review will be done to verify active coverage with patient's insurance going forward. PATIENT TEACH BACK X [facility] X May have travel and lodging funds available through [facility] X Cost of transplant X Reviewed to call Transplant Financial Coordinators with questions documented in this encounter Plan of Treatment Upcoming Encounters Date Type Specialty Care Team Description [facility] Radiology Mousa, Matthew 2 Encounter YTyrell, Lilian [address] [place] [phone] Hospital Gastro[facility]ology and [facility], Matthew 2 Encounter Hepatology YTyrell, Lilian [address] [place] [phone] Surgery Gastroenterology and [facility], Matthew ESOPHAG OGASTRODUODENOSCOPY 2 Hepatology YTyrell, Lilian [address] [place] [phone] Telemedicine Transplant 2 Lab Laboratory Medicine Karin, 2 Adeline Gannon M.D., Ph.D. [address] [place] [phone] Lab Laboratory Medicine Karin, 2 Adeline Gannon M.D., Ph.D. [address] [place] [phone] Office Visit Transplant Karin 2 Adeline Gannon M.D., Ph.D. [address] [place] [phone] Office Visit [facility] Internal [facility], 2 Medicine Vernell Perez [address] [place] [phone] Appointment Radiology Okchantell Matthew 2 Y, Tyrell, Lilian [address] [place] [phone] Appointment Gastroenterology and Adrianne, 2 Hepatology Yue Burciaga M.D. [address] [place] [phone] Office Visit Gastroenterology and Matthew Jerome 2 Hepatology Tyrell Rodriguez M.D. [address] [place] [phone] Appointment Radiology LuisMatthew abdul 2 Tyrell Rodriguez M.D. [address] [place] [address] [phone] Scheduled Procedures Name Priority Associated Diagnoses Date/Time ESOPHAGOGASTRODUODENOSCOPY Cirrhosis Alc oholic (HCC) 02/10/2022 8:45 AM CDT Hypertension Portal (HCC) documented as of this encounter Visit Diagnoses Not on filedocumented in this encounter Care Teams Yarn Comber Relationship Specialty Start Date End Date Elsewhere, Pcp PCP - General Family Medicine 03/10/20 11/30/21 [facility] [place] [facility] 08/25/21 Ervin Schroeder MD Referring Provider Family Medicine 03/24/[address] [place] [phone] documented as of this encounter
--- OUTSIDE RECORDS SUMMARY | 2022-02-04 23:16 | XMS_ITS | Encounter Summary ---
:1990 Author Organization [facility] Address [address] [place] [address] Care Team Providers Name Role Phone Elsewhere, Pcp Primary Care Provider Unavailable Reason for Referral Outpatient (Routine) - Closed Specialty Diagnoses / Procedures Referred By Contact Refer red To Contact Diagnoses Fatty Liver Failure Liver (HCC) Cirrhosis Alcoholic (HCC) Preoperative Exam Ascites Abnormal Liver Function Test Warren Hernández M.D., [facility] Procedures Six Minute Walk M.P.H. [address] [place] [address] Referral ID Status Reason Start Date Expiration Date Visits Requ ested Visits Authorized [id number] Closed 09/08/2021 09/08/2022 1 1 Reason for Visit Outpatient (Routine) - Closed Specialty Diagnoses / Procedures Referred By Contact Refer red To Contact Diagnoses Fatty Liver Failure Liver (HCC) Cirrhosis Alcoholic (HCC) Preoperative Exam Ascites Abnormal Liver Function Test Warren Hernández M.D., [facility] Procedures Six Minute Walk M.P.H. [address] [place] [address] Referral ID Status Reason Start Date Expiration Date Visits Requ ested Visits Authorized [id number] Closed 09/08/2021 09/08/2022 1 1 Encounter Details Date Type Department Care Team Description 09/24/2021 Hospital Encounter Department of Talnatalia, Fatty Li fred; Pulmonary Warren A, Failure Liver ( HCC); Rehabilitation Lilian, M.P.H. Cirrhosis Alcoholic (HCC); Edgard Holloway [address] [facility] Preoperative Exam; [address] [place], [place] Ascites; [place] [phone] Abnormal Liver Function Test [phone] Social History Tobacco Use Types Packs/Day Years [...] do you attend mormon or Never 2021 oriental orthodox services? 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 [address] [place] [phone] Surgery Gastroenterology and [facility] ESOPHAG OGASTRODUODENOSCOPY 2 Hepatology Tyrell Rodriguez, Lilian [address] [place] [phone] Telemedicine Transplant 2 Lab Laboratory Medicine Karin, Olinda Gannon M.D., Ph.D. [address] [place] [phone] Lab Laboratory Medicine Karin, Olinda Gannon M.D., Ph.D. [address] [place] [address] [phone] Office Visit Transplant Karin, Olinda Gannon M.D., Ph.D. [address] [place] [phone] Office Visit [facility], 2 Medicine Vernell Perez [address] [place] [phone] Appointment Radiology Matthew Jerome 2 YJoshuaB.B.SSuma, Lilian [address] [place] [phone] Appointment Gastroenterology and Adrianne, 2 Hepatology Yue Burciaga M.D. [address] [place] [phone] Office Visit Gastroenterology and Matthew Jerome 2 Hepatology Joshua RodriguezBSumaBSumaSSuma, Lilian [address] [place] [phone] Appointment Radiology Matthew Jerome 2 YJoshuaB.B.SSuma, Lilian [address] [place] [address] [phone] Scheduled Procedures Name Priority Associated Diagnoses Date/Time [...] (HCC) documented in this encounter Care Teams Installment Loan Collector Relationship Specialty Start Date End Date Elsewhere, Pcp PCP - General Family Medicine 03/10/20 11/30/21 [facility] 08/25/21 Ervin Schroeder MD Referring Provider Family Medicine 03/24/21[address] [place] [phone] documented as of this encounter
--- OUTSIDE RECORDS SUMMARY | 2022-02-04 23:16 | XMS_ITS | Encounter Summary ---
:1990 Author Organization [facility] Address [address] [place] [address] Care Team Providers Name Role Phone Elsewhere, Pcp Primary Care Provider Unavailable Reason for Visit Reason Comments Med Management Outpatient (Routine) - Closed Specialty Diagnoses / Procedures Referred By Contact Refer red To Contact Pharmacy Diagnoses Cirrhosis Alcoholic (HCC) Abnormal Liver Function Test Ascites Pretransplant Recipient Evaluation Exam Preoperative Exam Warren Hernández M.D., [facility] M.P.H. [address] [place] [address] Referral ID Status Reason Start Date Expiration Date Visits Requ ested Visits Authorized [id number] Closed 08/25/2021 08/25/2022 1 1 Encounter Details Date Type Department Care Team Description 09/30/2021 Office Visit Warren Carter M.D., M.P.H. [address] [place] [phone] Cirrhosis Alcoholic (HCC); [facility] Evon Joseph, Pharm.D., R.Ph. [address] [place] [phone] Abnormal Liver Function Test; Transplantation and Ascites; Clinical Regeneration in Pre transplant Recipient Evaluation Exam; [place], [place] Preoperative Exam [address] [place] [phone] Social History Tobacco Use Types Packs/Day [...] do you attend denominational or Never 2021 confucianism services? 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 - 09/30/2021 8:00 AM CDT Pre-Transplant Assessment SUBJECTIVE Referring Provider Warren Hernández M.D., M.P.H. Chief Complaint Targeted Transplant Medication Therapy Management: Review of therapies for liver disease, medicationadherence, and any medications that impact transplant candidacy. History of Present Illness (HPI) Catia Carias is a 31 y.o. female who is seen today by [facility] Pharmacist. The patient presents today for a [facility] Pharmacist transplant evaluation; consideration for transplant [...] future, as smoking hurts her lungs.[employer] [place] registration #[id number]. Insomnia medications: She also has hydroxyzine 25 [...] 1 mgdaily, thiamine 100 mg daily, ergocalciferol 82104 IU weekly on Wednesday and vitamin A 24482 units three days per week. Contraception medications: [...] 1 time per month. The patient uses [place] locally. Does the patient know what medications [...] Team Description [facility] Radiology [facility] 2 Encounter Tyrell Rodriguez M.D. [address] [place] [phone] [facility] Gastroenterology and [facility], Matthew 2 Encounter Hepatology Tyrell Rodriguez M.D. [address] [place] [phone] Surgery Gastroenterology and [facility] [place] ESOPHAG OGASTRODUODENOSCOPY 2 Hepatology Tyrell Rodriguez M.D. [address] [place] [phone] Telemedicine Transplant 2 Lab Laboratory Medicine Olinda Frazier M.D., Ph.D. [address] [place] [phone] Lab Laboratory Medicine Olinda Frazier M.D., Ph.D. [address] [place] [phone] Office Visit Transplant Karin, Olinda Gannon M.D., Ph.D. [address] [place] [phone] Office Visit [facility] Internal [place], 2 Medicine Vernell Perez [address] [place] [phone] Appointment Radiology Matthew Jerome 2 Y M.B.B.SSuma, Lilian [address] [place] [phone] Appointment Gastroenterology and Adrianne, 2 Hepatology Yue Burciaga M.D. [address] [place] [phone] Office Visit Gastroenterology and Matthew Jerome 2 Hepatology Elizabeth Rodriguez.B.B.SLilian Moise [address] [place] [phone] Appointment Radiology Matthew Jerome 2 Y M.B.B.SLilian Moise [address] [place] [phone] Scheduled Procedures Name Priority Associated Diagnoses Date/Time ESOPHAGOGASTRODUODENOSCOPY Cirrhosis Alc oholic (HCC) 02/10/2022 8:45 AM CDT Hypertension Portal (HCC) documented as of this encounter Visit Diagnoses Diagnosis Cirrhosis Alcoholic (HCC) Abnormal Liver Function Test Ascites Pretransplant Recipient Evaluation Exam Preoperative Exam Cirrhosis Alcoholic (HCC) Hypertension Portal (HCC) documented in this encounter Care Teams Call Center Specialist Relationship Specialty Start Date End Date Elsewhere, Pcp PCP - General Family Medicine 03/10/20 11/30/21 [facility] [place] [facility] 08/25/21 Ervin Schroeder MD Referring Provider Family Medicine 03/24/[address] [place] [phone] documented as of this encounter
--- OUTSIDE RECORDS SUMMARY | 2022-02-04 23:16 | XMS_ITS | Encounter Summary ---
:1990 Author Organization [facility] Address [address] [place] [address] Care Team Providers Name Role Phone Elsewhere, Pcp Primary Care Provider Unavailable Reason for Referral Physical Therapy (Routine) - Pending Review Specialty Diagnoses / Procedures Referred By Contact Refer red To Contact Diagnoses Edema Leg Matthew Jerome M.B.BSumaSSuma, [facility] Region Procedures PT Ongoing treatment .D. [address] [place] [phone] Referral ID Status Reason Start Date Expiration Date Visits V isits Requested Authorized [id number] Pending 09/24/2021 09/24/2022 99 99 Review Reason for Visit Physical Therapy (Routine) - Closed Specialty Diagnoses / Procedures Referred By Contact Refer red To Contact Diagnoses Edema Leg Matthew Jerome M.B.BGraeme, [facility] Region Procedures PT Evaluate and treat M.D. [address] [place] [phone] Referral ID Status Reason Start Date Expiration Date Visits Requ ested Visits Authorized [id number] Closed 09/16/2021 09/16/2022 1 1 Encounter Details Date Type Department Care Team Description 09/24/2021 Comprehensive Visit Department of Physical Matthew Jerome M.B.B.S., Lilian [address] [place] [phone] Edema Leg Medicine and Jessy Haywood M.S., P.T., CLT-JAKI [address] [place] [phone] Rehabilitation in [place], [place] [address] [place] [phone] Social History Tobacco Use Types Packs/Day [...] do you attend anabaptism or Never 2021 religion services? 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 MJules [address] [place] [phone] Rehab Diagnosis: 1. Edema Leg Reason for Referral: Insurance: Payor: [employer] [place] CARE / Plan: [employer] HMO / Product Type: MedicaidHMO / Total [...] patient education handout A Guide to Lymphedema (AV0362), as well as signs and symptoms of cellulitis utilizing patient education handout Cellulitis (RC8365). - Instructed exercises to reduce lymphedema. - [...] Program: Exercises to Reduce Lower Extremity Swelling-MC 4469 Treatment Response: The patient reported that she [...] Type Specialty Care Team Description Hospital Radiology [facility] 2 Encounter Tyrell Rodriguez M.D. [address] [place] [address] [phone] Hospital Gastroenterology and [facility] 2 Encounter Hepatology Tyrell Rodriguez M.D. [address] [place] [phone] Surgery Gastroenterology and [facility] ESOPHAG OGASTRODUODENOSCOPY 2 Hepatology Tyrell Rodriguez M.D. [address] [place] [phone] Telemedicine Transplant 2 Lab Laboratory Medicine Olinda Frazier M.D., Ph.D. [address] [place] [phone] Lab Laboratory Medicine Olinda Frazier M.D., Ph.D. [address] [place] [phone] Office Visit Transplant Olinda Frazier M.D., Ph.D. [address] [place] [phone] [facility], 2 Medicine Vernell Perez 300 [facility] ADI PANIAGUA [phone] Appointment Radiology Matthew Jerome 2 Y, M.B.B.SLilian Moise [address] [place] [phone] Appointment Gastroenterology and Adrianne 2 Hepatology Yue Burciaga M.D. [address] [place] [phone] Office Visit Gastroenterology and Matthew Jerome 2 Hepatology Jennifer M.B.B.SLilian Moise [address] [place] [phone] Appointment Radiology Matthew Jerome 2 Y M.B.B.SSuma, Lilian [address] [place] [phone] Scheduled Procedures Name Priority Associated Diagnoses Date/Time ESOPHAGOGASTRODUODENOSCOPY Cirrhosis Alc oholic (HCC) 02/10/2022 8:45 AM CDT Hypertension Portal (HCC) documented as of this encounter Visit Diagnoses Diagnosis Edema Leg Cirrhosis Alcoholic (HCC) Hypertension Portal (HCC) documented in this encounter Care Teams Nutritional Chemist Relationship Specialty Start Date End Date Elsewhere, Pcp PCP - General Family Medicine 03/10/20 11/30/21 [facility] [place] [facility] 08/25/21 Ervin Schroeder MD Referring Provider Family Medicine 03/24/[address] [place] [phone] documented as of this encounter
--- OUTSIDE RECORDS SUMMARY | 2022-02-04 23:16 | XMS_ITS | Encounter Summary ---
:1990 Author Organization [facility] Address [address] [place] [address] Care Team Providers Name Role Phone Elsewhere, Pcp Primary Care Provider Unavailable Reason for Visit Outpatient (Routine) - Closed Specialty Diagnoses / Procedures Referred By Contact Refer red To Contact Preventive Medicine Diagnoses Cirrhosis Alcoholic (HCC) Abnormal Liver Function Test Ascites Pretransplant Recipient Evaluation Exam Preoperative Exam Warren Hernández [facility] Lilian, M.P.H. [address] [place] [address] Referral ID Status Reason Start Date Expiration Date Visits Requ ested Visits Authorized [id number] Closed 08/25/2021 08/25/2022 1 1 Encounter Details Date Type Department Care Team Description 10/01/2021 Comprehensive Visit Section of Preventive, Alicia Diggs Counseling Preventive (Primary Dx); Transportation and K, MUCKER COFFERDAM, Cirrhosis Alcoholic (HCC); Occupational Medicine C.N.P. Abnorm al Liver Function Test; in [facility]; [place] Pretransplant Recipient Eval uation Exam; [address] [facility] [place] [phone] Social History Tobacco Use Types Packs/Day Years [...] do you attend buddhist or Never 2021 buddhism services? 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 [address] [place] [phone] Surgery Gastroenterology and [facility] ESOPHAG OGASTRODUODENOSCOPY 2 Hepatology Tyrell Rodriguez, Lilian [address] [place] [phone] Telemedicine Transplant 2 Lab Laboratory Medicine Karin, Olinda Gannon M.D., Ph.D. [address] [place] [phone] Lab Laboratory Medicine Karin, Olinda Gannon M.D., Ph.D. [address] [place] [address] [phone] Office Visit Transplant Karin, Olinda Gannon M.D., Ph.D. [address] [place] [phone] Office Visit Community Internal [facility], 2 Medicine Vernell Perez [address] [place] [phone] Appointment Radiology Matthew Jerome 2 Y, M.B.B.SSuma, Lilian [address] [place] [phone] Appointment Gastroenterology and Adrianne, 2 Hepatology Yue Burciaga M.D. [address] [place] [phone] Office Visit Gastroenterology and Matthew Jerome 2 Hepatology Elizabeth Rodriguez.B.B.SLilian Moise [address] [place] [phone] Appointment Radiology Matthew Jerome 2 Y M.B.B.SSuma, Lilian [address] [place] [phone] Scheduled Procedures Name Priority Associated Diagnoses Date/Time ESOPHAGOGASTRODUODENOSCOPY Cirrhosis Alc oholic (HCC) 02/10/2022 8:45 AM CDT Hypertension Portal (HCC) documented as of this encounter Visit Diagnoses Diagnosis Counseling Preventive - Primary Cirrhosis Alcoholic (HCC) Abnormal Liver Function Test Ascites Pretransplant Recipient Evaluation Exam Preoperative Exam Cirrhosis Alcoholic (HCC) Hypertension Portal (HCC) documented in this encounter Care Teams Diesel Powerplant Mechanic Relationship Specialty Start Date End Date Elsewhere, Pcp PCP - General Family Medicine 03/10/20 11/30/21 [facility] [place] lab 08/25/21 Ervin Schroeder MD Referring Provider Family Medicine 03/24/[address] [place] [phone] documented as of this encounter
--- OUTSIDE RECORDS SUMMARY | 2022-02-04 23:16 | XMS_ITS | Encounter Summary ---
:1990 Author Organization [facility] Address [address] [place] [address] Care Team Providers Name Role Phone Elsewhere, Pcp Primary Care Provider Unavailable Reason for Referral Transplant (Routine) - Authorized Specialty Diagnoses / Procedures Referred By Contact Refer red To Contact Transplant Surgery / Matthew Jerome [place] [facility] M.B.B.S., M.D. [address] [place] [phone] Referral ID Status Reason Start Date Expiration Date Visits V isits Requested Authorized [id number] Authorized 10/27/2021 10/27/2022 1 1 Scheduling Instructions May be phone or video- patient preferenc e. Scheduled in [place]. Thanks Transplant (Routine) - Authorized Specialty Diagnoses / Procedures Referred By Contact Refer red To Contact Transplant Surgery / Matthew Jerome [place] [facility] Trans[facility] M.B.B.S., M.D. [address] [place] [phone] Referral ID Status Reason Start Date Expiration Date Visits V isits Requested Authorized [id number] Authorized 10/27/2021 10/27/2022 1 1 Scheduling Instructions [place] Scheduled in [place]. Thanks Reason for Visit Reason Comments Patient Education 1:1 education Encounter Details Date Type Department Care Team Description 10/01/2021 Education Warren Carter M.D., M.P.H. [address] [place], [place] [address] Cirrhosis Alcoholic (HCC); [facility], Chano Engle, R.N., C.C.T.C. Abnormal Liver Function Test; Transplantation and Ascites; Clinical Regeneration in Pre transplant Recipient Evaluation Exam; [place], [place] Preoperative Exam [address] [place] [phone] Social History Tobacco Use Types Packs/Day [...] do you attend samaritan or Never 2021 rastafari services? 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 All questions were answered. Catia Carias has [...] Orders, SmartSet Addendum Note - Matthew Jerome M.B.B.S., M.Jeri - 10/01/2021 8:00 AM CDT Addended by: MATTHEW JEROME on: 10/27/2021 05:38 PM Modules accepted: Orders documented in this encounter Plan of Treatment Upcoming Encounters Date Type Specialty Care Team Description Hospital Radiology LuisNew abdular 2 Encounter Tyrell Rodriguez M.D. [address] [place] [address] [phone] Hospital Gastroenterology and Luischantell Matthew 2 Encounter Hepatology Tyrell Rodriguez M.D. [address] [place] [phone] Surgery Gastroenterology and Matthew Jerome ESOPHAG OGASTRODUODENOSCOPY 2 Hepatology Tyrell Rodriguez M.D. [address] [place] [phone] Telemedicine Transplant 2 Lab Laboratory Medicine Olinda Frazier M.D., Ph.D. [address] [place] [phone] Lab Laboratory Medicine Olinda Frazier M.D., Ph.D. [address] [place] [address] [phone] Office Visit Transplant Olinda Frazier M.D., Ph.D. [address] [place] [address] [phone] Office Visit Community Internal [facility], 2 Solitario Perez P.A.-C. [address] [place] [phone] Appointment Radiology Matthew Jerome 2 YTyrell M.D. [address] [place] [address] [phone] Appointment Gastroenterology and Adrianne, 2 Hepatology Yue Burciaga M.D. [address] [place] [phone] Office Visit Gastroenterology and Matthew Jerome 2 Hepatology Tyrell Rodriguez M.D. [address] [place] [address] [phone] Appointment Radiology Matthew Jerome 2 YTyrell M.D. [address] [place] [address] [phone] Scheduled Orders Name Type Priority Associated Diagnoses [...] (HCC) documented in this encounter Care Teams Animal Science Professor Relationship Specialty Start Date End Date Elsewhere, Pcp PCP - General Family Medicine 03/10/20 11/30/21 [facility] [place] lab 08/25/21 Ervin Schroeder MD Referring Provider Family Medicine 03/24/[address] [place] [address] documented as of this encounter
--- OUTSIDE RECORDS SUMMARY | 2022-02-04 23:16 | XMS_ITS | Encounter Summary ---
:1990 Author Organization [facility] Address [address] [place] [address] Care Team Providers Name Role Phone Elsewhere, Pcp Primary Care Provider Unavailable Reason for Visit Reason Comments Hepatobiliary Encounter Details Date Type Department Care Team Description 09/19/2021 Clinical Communication Division of [place], Hepat obiliary Gastroenterology in [place], [place] Lilian, M.P.H. [address] [facility] [address] [place] [phone] [place], [place] [phone] Social History Tobacco Use Types Packs/Day Years [...] do you attend methodist or Never 2021 samaritan services? 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 - 09/22/2021 9:55 AM CDT SUBJECTIVE CHIEF COMPLAINT / REASON FOR CALL Hepatobiliary, CT abd, anxiety ASSESSMENT nurse phoned patient to discuss preference for CT abd at [place]. She was prescribed Ativan 1 mg to [...] the CT. Dr. Hernández is away today; [facility] PLAN Anxiety related to claustrophobia related to CT abd scheduled for 14:45 today at [place]. Disposition/Recommendation: notified provider and awaiting recommendations. Information/Education: patient/caller able to teach back. Caller agreeable to plan of care: yes. The following references were used: nursing clinical judgement. 10:30 Addendum: Patient informed that [facility] (per Dr. Ramirez Driscoll) says she has not been seen here in [place] yet so does not feel comfortable prescribing a controlled substance for a procedure that usually is not performed with much sedation. She should contact [facility] or her local PCPif she [...] she had called and discussed this with [facility] GI Department. Power Press Operator also explained that changed of sedation type may result in a change of date/time of CT scan and she likely would not be able to still have CT done today in [place] with a change of sedation type from oral Ativan. Patient expressed she would maybe be willing to try the CT scan as ordered. She will call and follow up with [facility] GI. documented in this encounter Plan of Treatment Upcoming Encounters Date Type Specialty Care Team Description Hospital Radiology [facility] 2 Encounter Tyrell Rodriguez M.D. [address] [place] [address] [phone] Hospital Gastroenterology and [facility] 2 Encounter Hepatology Tyrell Rodriguez M.D. [address] [place] [phone] Surgery Gastroenterology and [facility] [place] ESOPHAG OGASTRODUODENOSCOPY 2 Hepatology Natanael RodriguezLilian Bedolla [address] [place] [phone] Telemedicine Transplant 2 Lab Laboratory Medicine Karin, 2 Adeline Gannon M.D., Ph.D. [address] [place] [phone] Lab Laboratory Medicine Karin, 2 Adeline Gannon M.D., Ph.D. [address] [place] [address] [phone] Office Visit Transplant Karin, 2 Adeline Gannon M.D., Ph.D. [address] [place] [address] [phone] Office Visit Community Internal [facility], 2 Medicine Carlotta PerezCSuma [address] [place] [phone] Appointment Radiology Matthew Jerome 2, M.BSumaBLilian Bedolla [address] [place] [address] [phone] Appointment Gastroenterology and Adrianne, 2 Hepatology Yue Burciaga M.D. [address] [place] [phone] Office Visit Gastroenterology and Matthew Jerome 2 Hepatology Joshua RodriguezBSumaBLilian Bedolla [address] [place] [phone] Appointment Radiology Mousa, Tyrell May 2, M.D. [address] [place] [phone] Scheduled Procedures Name Priority Associated Diagnoses Date/Time ESOPHAGOGASTRODUODENOSCOPY Cirrhosis Alc oholic (HCC) 02/10/2022 8:45 AM CDT Hypertension Portal (HCC) documented as of this encounter Visit Diagnoses Diagnosis Anxiety - Primary Personal History Of Failed Moderate Jo tion Cirrhosis Alcoholic (HCC) Hypertension Portal (HCC) documented in this encounter Care Teams Solar Water Heater Installer Relationship Specialty Start Date End Date Elsewhere, Pcp PCP - General Family Medicine 03/10/20 11/30/21 [facility] [place] lab 08/25/21 Ervin Schroeder MD Referring Provider Family Medicine 03/24/[address] [place] [phone] documented as of this encounter
--- OUTSIDE RECORDS SUMMARY | 2022-02-04 23:16 | XMS_ITS | Encounter Summary ---
:1990 Author Organization [facility] Address [address] [place] [address] Care Team Providers Name Role Phone Elsewhere, Pcp Primary Care Provider Unavailable Reason for Referral Outpatient (Routine) - Closed Specialty Diagnoses / Procedures Referred By Contact Refer red To Contact Diagnoses Fatty Liver Failure Liver (HCC) Cirrhosis Alcoholic (HCC) Preoperative Exam Ascites Abnormal Liver Function Test Warren Hernández M.D., [facility] Region Procedures DX Chest AP or PA and Lateral 2 Views M.P.H. [address] [place] [address] Referral ID Status Reason Start Date Expiration Date Visits Requ ested Visits Authorized [id number] Closed 09/08/2021 09/08/2022 1 1 Reason for Visit Outpatient (Routine) - Closed Specialty Diagnoses / Procedures Referred By Contact Refer red To Contact Diagnoses Fatty Liver Failure Liver (HCC) Cirrhosis Alcoholic (HCC) Preoperative Exam Ascites Abnormal Liver Function Test Warren Hernández M.D., [facility] Region Procedures DX Chest AP or PA and Lateral 2 Views M.P.H. [address] [place] [address] Referral ID Status Reason Start Date Expiration Date Visits Requ ested Visits Authorized [id number] Closed 09/08/2021 09/08/2022 1 1 Encounter Details Date Type Department Care Team Description 09/22/2021 Hospital Encounter Department of Deena Hernández fred; Radiology, [place] Warren Schaefer M.D., Greg segal Liver (HCC); [facility], in M.P.H. Cirrhosis Alcoholic (HCC); [place], [place] [address] [facility] Preoperative Exam; [address] [place], [place] Ascites; [place] [address] Abnormal Liver Function Test [phone] Social History [...] do you attend zoroastrianism or Never 2021 lutheran services? 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 [address] [place] [phone] Hospital Gastroenterology and [place], Matthew 2 Encounter Hepatology YTyrell M.D. [address] [place] [phone] Surgery Gastroenterology and [facility], Matthew ESOPHAG OGASTRODUODENOSCOPY 2 Hepatology Tyrell Rodriguez M.D. [address] [place] [phone] Telemedicine Transplant 2 Lab Laboratory Medicine Karin, Olinda Gannon M.D., Ph.D. [address] [place] [address] [phone] Lab Laboratory Medicine Olinda Frazier M.D., Ph.D. [address] [place] [phone] Office Visit Transplant Olinda Frazier M.D., Ph.D. [address] [place] [phone] Office Visit Community Internal [facility], 2 Medicine Vernell Perez [address] [place] [address] [phone] Appointment Radiology Matthew Jerome 2 Y, Lilian Santillan [address] [place] [phone] Appointment Gastroenterology and Adrianne, 2 Hepatology Yue Segal M.D. [address] [place] [phone] Office Visit Gastroenterology and Matthew Jerome 2 Hepatology Tyrell Rodriguez M.D. [address] [place] [phone] Appointment Radiology Matthew Jerome 2, M.B.B.S., M.D. [address] [place] [phone] Scheduled Procedures Name Priority Associated [...] documented in this encounter Care Teams Electronic Page Makeup System Operator Relationship Specialty Start Date End Date Elsewhere, Pcp PCP - General Family Medicine 03/10/20 11/30/21 [facility] [place] lab 08/25/21 Ervin Schroeder MD Referring Provider Family Medicine 03/24/[address] [place] [phone] documented as of this encounter
--- OUTSIDE RECORDS SUMMARY | 2022-02-04 23:16 | XMS_ITS | Encounter Summary ---
:1990 Author Organization [facility] Address [address] [place] [address] Care Team Providers Name Role Phone Elsewhere, Pcp Primary Care Provider Unavailable Reason for Referral Outpatient (Routine) - Closed Specialty Diagnoses / Procedures Referred By Contact Refer red To Contact Diagnoses Cirrhosis Alcoholic (HCC) Abnormal Liver Function Test Ascites Pretransplant Recipient Evaluation Exam Preoperative Exam Warren Hernández [facility] Procedures Echo Transthoracic (TTE) Lilian, M.P.H. [address] [place] [address] Referral ID Status Reason Start Date Expiration Date Visits Requ ested Visits Authorized [id number] Closed 08/31/2021 08/31/2022 1 1 Reason for Visit Outpatient (Routine) - Closed Specialty Diagnoses / Procedures Referred By Contact Refer red To Contact Diagnoses Cirrhosis Alcoholic (HCC) Abnormal Liver Function Test Ascites Pretransplant Recipient Evaluation Exam Preoperative Exam Warren Hernández, [facility] Procedures Echo Transthoracic (TTE) Lilian, M.P.H. [address] [place] [address] Referral ID Status Reason Start Date Expiration Date Visits Requ ested Visits Authorized [id number] Closed 08/31/2021 08/31/2022 1 1 Encounter Details Date Type Department Care Team Description 09/23/2021 Hospital Department of [place], Cirrhosis Alco holic (HCC); Encounter Cardiovascular Warren A, Abnormal Live r Function Test; Diseases in Lilian Holloway, M.P.H . Ascites; [place] [address] [place] [address] Pretransplant Recipient Evaluation Exam; [address] [place], [place] Preoperative [place] [phone] [phone] Social History Tobacco Use Types Packs/Day Years [...] do you attend religious or Never 2021 islam services? 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 [address] [place] [phone] Hospital Gastroenterology and Txchantell, Matthew 2 Encounter Hepatology Tyrell Rodriguez M.D. [address] [place] [phone] Surgery Gastroenterology and [facility] [place] ESOPHAG OGASTRODUODENOSCOPY 2 Hepatology Tyrell Rodriguez M.D. [address] [place] [phone] Telemedicine Transplant 2 Lab Laboratory Medicine Olinda Frazier M.D., Ph.D. [address] [place] [address] [phone] Lab Laboratory Medicine Olinda Frazier M.D., Ph.D. [address] [place] [address] [phone] Office Visit Transplant Olinda Frazier M.D., Ph.D. [address] [place] [phone] Office Visit [facility], 2 Medicine Vernell Perez [address] [place] [phone] Appointment Radiology LuisNew abdular 2 Y, Lilian Santillan [address] [place] [phone] Appointment Gastroenterology and Adrianne, 2 Hepatology Yue Burciaga M.D. [address] [place] [phone] Office Visit Gastroenterology and Matthew Jerome 2 Hepatology Tyrell Rodriguez M.D. [address] [place] [phone] Appointment Radiology Matthew Jerome 2 Tyrell Rodriguez M.D. [address] [place] [phone] Scheduled Procedures Name Priority Associated Diagnoses Date/Time [...] COLOR AND CONTRAST (09/23/2021 4:39 PM CDT) [facility] Method Time Signature Ejection Fraction 66 [...] protocol documented in this encounter Care Teams Shoe Caser Relationship Specialty Start Date End Date Elsewhere, Pcp PCP - General Family Medicine 03/10/20 11/30/21 [facility] [place] lab 08/25/21 Ervin Schroeder MD Referring Provider Family Medicine 03/24/[address] [place] [phone] documented as of this encounter
--- OUTSIDE RECORDS SUMMARY | 2022-02-04 23:16 | XMS_ITS | Encounter Summary ---
:1990 Author Organization [facility] Address [address] [place] [address] Care Team Providers Name Role Phone Elsewhere, Pcp Primary Care Provider Unavailable Reason for Visit Transplant (Routine) - Closed Specialty Diagnoses / Procedures Referred By Contact Refer red To Contact Transplant Surgery / Diagnoses Cirrhosis Alcoholic (HCC) Abnormal Liver Function Test Ascites Pretransplant Recipient Evaluation Exam Preoperative Exam Warren Hernández, [facility] Transplant Lilian, M.P.H. [address] [place] [address] Referral ID Status Reason Start Date Expiration Date Visits Requ ested Visits Authorized [id number] Closed 08/25/2021 08/25/2022 1 1 Encounter Details Date Type Department Care Team Description 09/30/2021 Clinical Support Warren Carter M.D., M.P.H. [address] [place] [address] Cirrhosis Alcoholic (HCC); Center for Joel Tan L.I.C.S.W., M.S.W. [address] [place] [address] [place] [address] Abnormal Liver Function Test; Transplantation and Ascites; Clinical Regeneration Pretra nsplant Recipient Evaluation Exam; in [facility] Preoperative Exam 200 [place] [address] Social History Tobacco Use Types Packs/Day Years [...] do you attend mosque or Never 2021 anabaptism services? 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 - 09/30/2021 10:30 AM CDT Transplant Psychosocial Assessment DEMOGRAPHIC INFORMATION SUBJECTIVE Referral Source: Dr. Warren Hernández, Liver Transplant team Patient seen for: pre-transplant of liver Persons present: Patient, who prefers to be called, Christelle, and her mother, Parris Kngiht. Previous Psychosocial Assessment : No Patient's primary care provider/clinic: Dr. Migue Schroeder at [facility] in [place], [place]. Primary language: Paraguayan For this interview, the patient utilized language services: No Citizenship US citizen: Yes US resident: Yes Race/Ethnicity: Race: White Ethnicity: French, Descent Disclaimer: ?? The patient and her [...] understanding. ?? The role of the Transplant Highway Traffic Control Technician was explained. ?? Selection Committee: The patient [...] of origin: The patient was raised in [place], [place]. Her parents when she was 20 years old. Her mother remarried. The patient calls her step- father, Siva, her bonus father. The patient's mother and step-father live in [place], [place]. The patient's father did not remarry. He lives in [place], [place], which is 10-12 minutes from the [...] past. 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 She stopped working in January 2021 as she was advised to no longer work due to her medical condition. Patient's plan for extended time off for recovery: The patient does not currently have a source of income. Boyfriend's work: The patient's boyfriend works motion and time study teacher as a paint commercial lines assistant for a powder coating company called [employer]. Spiritual Practices/Buddhist/Culture Spirituality / Buddhist / Culture: The patient stated she does not have a anabaptism preference. The patient was informed of the availability of Race Relations Adviser Services at [facility]. History The patient stated she has never [...] a nurse come into her home from [facility] every (phone: [phone]). The nurse sets up the patient's medications [...] Patient's mother, Parris Knight, patient's boyfriend, Lobito Brunson, patient's brother, Ricardo Carias, and patient's boyfriend's moth er, Jo Annbrandy Brunson. The patient reports intention to speak [...] The patient lives approximately one hour from [place]. She would arrive via private vehicle. Relocation Plan: The patient was provided with information on the [facility]. Shewas also provided with information on the Environmental Permitting Specialist Services at [facility] who can assist with answering questions about local lodging accommodations. We did not have an opportunity to discuss these in detail today due to the time constraints of our interview, however I have encouraged the patient tocall me should she have additional questions. FINANCES/INSURANCE Primary insurance: [facility] BLUE PLUS HMO ([place] Medicaid) Secondary/Supplemental insurance: None Does patient have a benefit for travel, lodging and/or meals through insurance? The patient does notknow. I advised her to contact [employer] [facility] House Attendant to inquire about her eligibility for benefits. Household Information Number of persons in household: Two (patient and her boyfriend) Type of housing: Rent Source of household income: The patient does not currently have a source of income. She stated she is not receiving any assistance (such as food support) through her [facility] Fun House Attendant office. She has not yet applied for assistance. The patient's boyfriend has income through his motion and time study teacher employment wages. Current Financial Concerns: The patient [...] including the application process. Pharmacy Pharmacy coverage: [facility] BLUE PLUS HMO ([place] Medicaid) Current medication(s) received through prescription assistance [...] advance directive. I provided the patient with [facility]'s blank advance directive booklet and provided her with education on advance directives. I encouraged the patient to provide a copy of an advance directive to [facility], should she completed one in the future, [...] Service and had to meet with a parcel post officer. The patient was asked how she [...] with pain. The patient showed me her [place] Medical Cannabis Patient Registration Verification Card on her cell phone. She stated she started using medical cannabis in May 2021 and that it was prescribed for chronic leg pain which she states it is either neuropathy brought on by cirrhosis, intermission coordinator effects brought on by drugs used to [...] have a couple of puffs. The patient's [place] Medical Cannabis registration number is: [id number]. Family History: Father - alcohol (past, not currently of concern) Labs: Ethyl Glucuronide screen: 09/30/2021 - negative Urine Drug screen: 09/30/2021 - presumptive positive for benzodiazepines and THC. PEth: 09/30/2021 - in process ASSESSMENT / PLAN DISCUSSION Met with the patient and her mother at the [place] [address] [facility] [place] this morning. The patient is registered for [...] 16 or 17 and has had a [employer] Cann[employer] card since May 2021. Capability of [...] The patient was advised to contact her [facility] social science research assistant office to determine if she has a [...] - [facility] brochure ([id number]) - Patient's Guide to [facility] ([id number]) - Information for Caregivers: Taking Care of Yourself ([id number]) - Preparing for Transplant: Body, Mind, and Spirit ([id number]) - [facility] Advance directive booklet - [employer] financial assistance resource guide - What to Expect as a Transplant Caregiver brochure ([id number]) - National Living Donor Assistance Center brochure - [employer] fundraising brochure - National Foundation for Transplants fundraising brochure - [facility]: 5 Ways to Connect ([id number]) PLAN -The patient will continue through the [...] Encounters Date Type Specialty Care Team Description [facility] Radiology [facility] [place] 2 Encounter Tyrell Rodriguez M.D. 10[address] [place] [address] [facility] Gastroenterology and [facility] Matthew 2 Encounter Hepatology Tyrell Rodriguez M.D. 10[address] [place] [address] Surgery Gastroenterology and MoMatthew abdul ESOPHAG OGASTRODUODENOSCOPY 2 Hepatology Tyrell Rodriguez M.D. [address] [place] [address] Telemedicine Transplant 2 Lab Laboratory Medicine Karin, 2 Adeline Gannon M.D., Ph.D. [address] [place] [address] [phone] Lab Laboratory Medicine Karin, 2 Adeline Gannon M.D., Ph.D. [address] [place] [address] [phone] Office Visit Transplant Karin, 2 Adeline Gannon M.D., Ph.D. [address] [place] [address] [phone] Office Visit [facility], 2 Medicine Farida Perez-C. [address] [place] [phone] Appointment Radiology Matthew Jerome 2 Vik RodriguezBLilian Bedolla [address] [place] [address] Appointment Gastroenterology and Adrianne, 2 Hepatology Yue Burciaga M.D. [address] [place] [phone] Office Visit Gastroenterology and Matthew Jerome 2 Hepatology Vik RodriguezBLilian Bedolla [facility] [place] [phone] Appointment Radiology Matthew Jerome 2, M.B.B.S., Lilian [facility] [place] [address] Scheduled Procedures Name Priority Associated Diagnoses Date/Time ESOPHAGOGASTRODUODENOSCOPY Cirrhosis Alc oholic (HCC) 02/10/2022 8:45 AM CDT Hypertension Portal (HCC) documented as of this encounter Visit Diagnoses Diagnosis Cirrhosis Alcoholic (HCC) Abnormal Liver Function Test Ascites Pretransplant Recipient Evaluation Exam Preoperative Exam Cirrhosis Alcoholic (HCC) Hypertension Portal (HCC) documented in this encounter Care Teams Oil Derrick Operator Relationship Specialty Start Date End Date Elsewhere, Pcp PCP - General Family Medicine 03/10/20 11/30/21 [facility] [place] [facility] 08/25/21 Ervin Schroeder MD Referring Provider Family Medicine 03/24/[address] [place] [address] documented as of this encounter
--- OUTSIDE RECORDS SUMMARY | 2022-02-04 23:16 | XMS_ITS | Encounter Summary ---
:1990 Author Organization [facility] Address [address] [place] [address] Care Team Providers Name Role Phone Elsewhere, Pcp Primary Care Provider Unavailable Encounter Details Date Type Department Care Team Description 09/30/2021 Lab Department of Laboratory Alec Hernández Cirrhosis Alcoholic (HCC); Medicine and PathologySilvano M.D., M.P.H. Abnormal Liver Function Test; [place] [address] [place] [address] Ascites; [place] [address] Pretransplant Recipient Evaluation Exam; [address] [place] [address] [place] [address] [phone] Social History Tobacco Use Types Packs/Day Years [...] do you attend caodaism or Never 2021 church services? Do you belong to any clubs or No 07/17/2021 organizations such as caodaism groups, unions, [employer] or athletic groups, or school groups? 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 - 10/03/2021 3:32 PM CDT I reviewed the attached results. Urinalysis is negative. Staph epidermidis is likely skin contamination. documented in this encounter Plan of Treatment Upcoming Encounters Date Type Specialty Care Team Description Hospital Radiology Matthew Jerome 2 Encounter Tyrell Rodriguez M.D. [address] [place] [address] [facility] Gastroenterology and Matthew Jerome 2 Encounter Hepatology Max Rodriguez., Lilian [address] [place] [address] Surgery Gastroenterology and Matthew Jerome ESOPHAG OGASTRODUODENOSCOPY 2 Hepatology Tyrell Rodriguez, Lilian [address] [place] [address] Telemedicine Transplant 2 Lab Laboratory Medicine Karin, 2 Adeline Gannon M.D., Ph.D. [address] [place] [phone] Lab Laboratory Medicine Karin, 2 Adeline Gannon M.D., Ph.D. [address] [place] [address] Office Visit Transplant Karin, 2 Adeline Gannon M.D., Ph.D. [address] [place] [phone] Office Visit [facility] Internal [employer], 2 Medicine Vernell Perez [address] [place] [phone] Appointment Radiology Matthew Jerome 2 Vik RodriguezB.SSuma, Lilian [address] [place] [address] Appointment Gastroenterology demian Silver, 2 Hepatology Yue Burciaga M.D. [address] [place] [address] Office Visit Gastroenterology and Matthew Jerome 2 Hepatology Tyrell Rodriguez M.D. 10[address] [place] [address] Appointment Radiology LuisMatthew abdul 2 Tyrell Rodriguez M.D. [address] [place] [address] Scheduled Procedures Name Priority Associated Diagnoses Date/Time ESOPHAGOGASTRODUODENOSCOPY Cirrhosis Alc oholic (HCC) 02/10/2022 8:45 AM CDT Hypertension Portal (HCC) documented as of this encounter Procedures Procedure Name Priority Date/Time Associated Comments Diagnosis AK OSMOLALITY ASSAY Routine 09/30/2021 8:23 AM Re [...] (ABNORMAL) Dipstick, Urine (09/30/2021 8:23 AM CDT) Patholo gist [...] M.P.H. LAB URINE ORDERABLES Performing Organization Address City/[facility]/ZIP Code Phon e Number [facility] - [address] [place] [address] [place] [address] [address] [facility] Osmolality, Urine (09/30/2021 8:23 AM CDT) athologist Signature Osmolality, U 628 150 - 1150 09/30/2021 DTL mOsm/kg 9:41 AM CDT Specimen Anatomical Collection Method Collection Time Receive d Time (Source) Location / / Volume Laterality Urine 09/30/2021 8:23 AM 2 8:24 CDT AM CDT Warren Hernández M.D., M.P.H. LAB URINE ORDERABLES Performing Organization Address City/[facility]/ZIP Code Phon e Number [facility] - [address] pH, Random, Urine (09/30/2021 8:23 AM CDT) P athologist Signature pH, Random, U 5.7 4.5 - 8.0 09/30/2021 DTL 9:41 AM CDT Specimen Anatomical Collection Method Collection Time Receive d Time (Source) Location / / Volume Laterality Urine 09/30/2021 8:23 AM 2 8:24 CDT AM CDT Warren Hernández M.D., M.P.H. LAB URINE ORDERABLES Performing Organization Address [facility] Phon e Number [facility] - 200 [place], [place] [address] [place] [address] Microscopic Manual (09/30/2021 8:23 AM CDT) [...] M.P.H. LAB URINE ORDERABLES Performing Organization Address [facility] Phon e Number [facility] - 200 [place], [place] [address] [place] [address] Ethyl Glucuronide Screen with Reflex, Urine (09/30/2021 8:23 AM CDT) Patholo gist Method Time Signature Ethyl Negative Cutoff: 09/30/2021 SDSC Glucuronide Scrn 500 ng/mL 11:12 AM CDT w/Reflex, U Comment: ----ADDITIONAL INFORMATION---- This test was developed and its performa nce characteristics determined by [facility] in a manner consistent with CLIA requirements. This test has not been cleared or approved by the U.[place]. [place] d and Drug Administration. Specimen Anatomical Collection Method Collection Time Receive d Time (Source) Location / / Volume Laterality Urine (Urine, 09/30/2021 8:23 AM 10/01/19 22 9:59 Midstream) CDT AM CDT Warren Hernández M.D., M.P.H. LAB URINE ORDERABLES Performing Organization Address City/[facility]/ZIP [facility] Phon e Number [facility] [address] [place], [place] [address] SU[facility] [place] [address] Laboratory Medicine and Pathology [address] [place] (ABNORMAL) Bacterial Culture, Aerobic + Susc, Urine (09/30/2021 8:23 AM CDT) Component Value Ref Test Analysis Performed At [facility] gist Range Method Time Signature Urine [...] City/State/ZIP Code Phon e Number [facility] - [address] [place], [place] [address] [facility] [place], [place] [id number] [place] [address]-[facility] [place] [address] (ABNORMAL) Drug Abuse Survey with Confirmation, Panel 9, Urine (09/30/2021 8:23 AM CDT) Component Value Ref Test Analysis Performed At [facility] Range Method Time Signature Alcohol Negative Cutoff: [...] characteristics were determi foreign by [facility] in a manner consistent with CLIA requirements. This test has not been cleared or approved by the U.S. Food and Drug Administration . Specimen Anatomical Collection Method Collection Time Receive d Time (Source) Location / / Volume Laterality Urine (Urine, 09/30/2021 8:23 AM 10/01/19 22 Midstream) CDT 10:00 AM CDT Warren Hernández M.D., M.P.H. LAB URINE ORDERABLES Performing Organization Address City/[facility] Phon e Number [facility] [address] [place], [place] [address] SU[facility]ENTER [facility] [place] [address] Laboratory Medicine and Pathology [address] [place] Urinalysis with Microscopic: Urine, Midstream (09/30/2021 8:23 AM CDT) [facility] gist Method Time Signature Source Urine, [...] M.P.H. LAB URINE ORDERABLES Performing Organization Address City/[facility] Code Phon e Number [facility] - [address] [place], [place] [address] [facility] [place] [address] Laboratories-[facility] [address] documented in this encounter Visit Diagnoses Diagnosis Cirrhosis Alcoholic (HCC) Abnormal Liver Function Test Ascites Pretransplant Recipient Evaluation Exam Preoperative Exam Cirrhosis Alcoholic (HCC) Hypertension Portal (HCC) documented in this encounter Care Teams Personal Support Worker Relationship Specialty Start Date End Date Elsewhere, Pcp PCP - General Family Medicine 03/10/20 11/30/21 [facility] 08/25/21 Ervin Schroeder MD Referring Provider Family Medicine 03/24/[address] [place] [address] documented as of this encounter
--- OUTSIDE RECORDS SUMMARY | 2022-02-04 23:16 | XMS_ITS | Encounter Summary ---
:1990 Author Organization [facility] Address [address] [place] [address] Care Team Providers Name Role Phone Elsewhere, Pcp Primary Care Provider Unavailable Reason for Visit Reason Comments Leg Pain Encounter Details Date Type Department Care Team Description 09/28/2021 Nurse Triage Department of [facility] Naila Walters, Myrtle Leg Pain Medicine, [facility], in [address] [place], [place] [address] [place] [address] [place] [address] [phone] Social History Tobacco Use Types Packs/Day Years [...] do you attend restorationism or Never 2021 church services? 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 - 09/28/2021 4:13 PM CDT Chief Complaint [...] weeping fluid) Protocols used: LEG SWELLING AND ULMLO-CRZAW-BX Care Advice Patient/Caregiver understands and will follow care advice?: Yes, able to teach back CALL BACK IF: * You become worse. documented in this encounter Plan of Treatment Upcoming Encounters Date Type Specialty Care Team Description Hospital Radiology Mattehw Jerome 2 Encounter Tyrell Rodriguez M.D. [address] [place] [address] Hospital Gastroenterology and Queenie Matthew 2 Encounter Hepatology Tyrell Rodriguez M.D. [address] [place] [address] Surgery Gastroenterology and Scchantell Matthew ESOPHAG OGASTRODUODENOSCOPY 2 Hepatology Tyrell Rodriguez M.D. [address] [place] [address] Telemedicine Transplant 2 Lab Laboratory Medicine Karin, 2 Adeline Gannon M.D., Ph.D. [address] [place] [phone] Lab Laboratory Medicine Karin, 2 Adeline Gannon M.D., Ph.D. [address] [place] [phone] Office Visit Transplant Karin, 2 Adeline Gannon M.D., Ph.D. [address] [place] [phone] Office Visit [facility], 2 Medicine Vernell Perez [address] [place] [phone] Appointment Radiology Matthew Jerome 2 YTyrell M.D. [address] [place] [address] Appointment Gastroenterology and Olinda Silver Hepatology Yue Burciaga M.D. [address] [place] [address] Office Visit Gastroenterology and Matthew Jerome 2 Hepatology Tyrell Rodriguez M.D. 10[address] [place] [phone] Appointment Radiology Matthew Jerome 2, M.B.B.S., M.D. [address] [place] [phone] Scheduled Procedures Name Priority Associated Diagnoses Date/Time ESOPHAGOGASTRODUODENOSCOPY Cirrhosis Alc oholic (HCC) 02/10/2022 8:45 AM CDT Hypertension Portal (HCC) documented as of this encounter Visit Diagnoses Not on filedocumented in this encounter Care Teams Rn Family Relationship Specialty Start Date End Date Elsewhere, Pcp PCP - General Family Medicine 03/10/20 11/30/21 [facility] [place] [facility] 08/25/21 Ervin Schroeder MD Referring Provider Family Medicine 03/24/[address] [place] [address] documented as of this encounter
--- OUTSIDE RECORDS SUMMARY | 2022-02-04 23:16 | XMS_ITS | Encounter Summary ---
:1990 Author Organization [facility] Address [address] [place] [address] Care Team Providers Name Role Phone Elsewhere, Pcp Primary Care Provider Unavailable Reason for Visit Transplant (Routine) - Closed Specialty Diagnoses / Procedures Referred By Contact Refer red To Contact Transplant Surgery / Diagnoses Cirrhosis Alcoholic (HCC) Abnormal Liver Function Test Ascites Pretransplant Recipient Evaluation Exam Preoperative Exam Warren Hernández, [facility] Transplant Lilian, M.P.H. [address] [place] [address] Referral ID Status Reason Start Date Expiration Date Visits Requ ested Visits Authorized [id number] Closed 08/25/2021 08/25/2022 1 1 Encounter Details Date Type Department Care Team Description 09/30/2021 Comprehensive Visit Warren Middleton M.D., M.P.H. [address] [place] [address] Cirrhosis Alcoholic (HCC); Luis [facility] Milagros Navarro M.S., RDN, LD [address] [place] [phone] Abnormal Liver Function Test; Transplantation and Ascites; Clinical Regeneration Pretra nsplant Recipient Evaluation Exam; in [place], [facility] E xam [place] [address] [place] [address] Social History Tobacco Use Types Packs/Day Years [...] do you attend scientology or Never 2021 anglican services? 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 HS snack: lemon/chippewa-cree, apple, a few crackers or protein bar Physical Activity: She goes up/down her apartment stairs a few times per day to check her mail, run errands, etc. She has a pool pass for a local pool. Weight History Patient Weight: 09/24/21 : 58.9 [...] Type Specialty Care Team Description Hospital Radiology [facility] 2 Encounter Tyrell Rodriguez M.D. [address] [place] [phone] [facility] Gastroenterology and [facility] 2 Encounter Hepatology Tyrell Rodriguez M.D. [address] [place] [phone] Surgery Gastroenterology and [facility] ESOPHAG OGASTRODUODENOSCOPY 2 Hepatology Tyrell Rodriguez M.D. [address] [place] [phone] Telemedicine Transplant 2 Lab Laboratory Medicine Karin, 2 Adeline Gannon M.D., Ph.D. [address] [place] [phone] Lab Laboratory Medicine Olinda Frazier M.D., Ph.D. [address] [place] [phone] Office Visit Transplant Karin, Olinda Gannon M.D., Ph.D. [address] [place] [phone] Office Visit Community Internal [facility], 2 Medicine Vernell Perez [address] [place] [phone] Appointment Radiology Matthew Jerome 2 YJoshuaBSumaBLilian Bedolla [address] [place] [phone] Appointment Gastroenterology and Adrianne, 2 Hepatology Yue Burciaga M.D. [address] [place] [phone] Office Visit Gastroenterology and Matthew Jerome 2 Hepatology Joshua RodriguezBSumaBLilian Bedolla [address] [place] [phone] Appointment Radiology Matthew Jerome 2 Y M.B.B.SLilian Moise [address] [place] [phone] Scheduled Procedures Name Priority Associated Diagnoses Date/Time ESOPHAGOGASTRODUODENOSCOPY Cirrhosis Alc oholic (HCC) 02/10/2022 8:45 AM CDT Hypertension Portal (HCC) documented as of this encounter Visit Diagnoses Diagnosis Cirrhosis Alcoholic (HCC) Abnormal Liver Function Test Ascites Pretransplant Recipient Evaluation Exam Preoperative Exam Cirrhosis Alcoholic (HCC) Hypertension Portal (HCC) documented in this encounter Care Teams Loan Review Analyst Relationship Specialty Start Date End Date Elsewhere, Pcp PCP - General Family Medicine 03/10/20 11/30/21 [facility] 08/25/21 Ervin Schroeder MD Referring Provider Family Medicine 03/24/[address] [place] [address] documented as of this encounter
--- OUTSIDE RECORDS SUMMARY | 2022-02-04 23:17 | XMS_ITS | Encounter Summary ---
:1990 Author Organization [facility] Address [address] [place] [address] Care Team Providers Name Role Phone Elsewhere, Pcp Primary Care Provider Unavailable Reason for Visit Reason Comments Appointment PMR 09/23 Phone Contact PMR PT Encounter Details Date Type Department Care Team Description 09/14/2021 Clinical Ramirez Barajas, Camron coreas (PMR Communication Center for [facility], 09/23); Phone Transplantation and MCee., Ph.D. Contact (PMR PT) Clinical [facility] [address] in [facility] [address] [facility] [phone] Social History Tobacco Use Types Packs/Day Years [...] do you attend gnosticist or Never 2021 advent services? Do you belong to any clubs or No 07/17/2021 organizations such as gnosticist groups, unions, fraWickr or athletic groups, or school groups? How [...] or the highest technical, or vocational p [facility] degree you have received? 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 None of the [...] [place] 2 Encounter Tyrell Rodriguez M.D. [address] [place] [phone] Hospital Gastroenterology and [place], Matthew 2 Encounter Hepatology Tyrell Rodriguez M.D. [address] [place] [phone] Surgery Gastroenterology and [facility], Matthew ESOPHAG OGASTRODUODENOSCOPY 2 Hepatology Tyrell Rodriguez M.D. [address] [place] [phone] Telemedicine Transplant 2 Lab Laboratory Medicine Olinda Frazier M.D., Ph.D. [address] [place] [phone] Lab Laboratory Medicine Olinda Frazier M.D., Ph.D. [address] [place] [phone] Office Visit Transplant Olinda Frazier M.D., Ph.D. [address] [place] [phone] Office Visit Community Internal [facility], 2 Medicine Vernell Perez [address] [place] [phone] Appointment Radiology LuisNew abdular 2 Y, Lilian Santillan [address] [place] [phone] Appointment Gastroenterology and [place], 2 Hepatology Yue Burciaga M.D. [address] [place] [phone] Office Visit Gastroenterology and Matthew Jerome 2 Hepatology Vik RodriguezBLilian Bedolla [address] [place] [phone] Appointment Radiology Matthew Jerome 2 YVikBLilian Bedolla [address] [place] [phone] Scheduled Procedures Name Priority Associated Diagnoses Date/Time ESOPHAGOGASTRODUODENOSCOPY Cirrhosis Alc oholic (HCC) 02/10/2022 8:45 AM CDT Hypertension Portal (HCC) documented as of this encounter Visit Diagnoses Not on filedocumented in this encounter Additional Health Concerns Infection Onset Date Last Indicated Resolved Time COVID19 08/29/2021 08/29/2021 09/18/2021 8:31 AM CDT documented as of this encounter Care Teams Consolidator Relationship Specialty Start Date End Date Elsewhere, Pcp PCP - General Family Medicine 03/10/20 11/30/21 [facility] [place] [facility] 08/25/21 Ervin Schroeder MD Referring Provider Family Medicine 03/24/[address] [place] [phone] documented as of this encounter
--- OUTSIDE RECORDS SUMMARY | 2022-02-04 23:17 | XMS_ITS | Encounter Summary ---
:1990 Author Organization [facility] Address [address] [place] [address] Care Team Providers Name Role Phone Elsewhere, Pcp Primary Care Provider Unavailable Encounter Details Date Type Department Care Team Description 09/12/2021 Clinical Communication Department of Matthew Jerome Gastroenterology in M.BJhoan, Joshua Kru[address] [phone] Social History Tobacco Use Types Packs/Day Years [...] do you attend quaker or Never 2021 yazdanism services? 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 - 09/15/2021 9:47 PM CDT Thanks so much Olga Telephone Encounter - Priscilla Castorena - 09/12/2021 12:02 PM CDT Patient was supposed to have an appointment for PMR CONS PT at [facility]. The appt has been cancelleddue to [...] Matthew Jerome 2 Encounter Tyrell Rodriguez M.D. [address] [place] [phone] Hospital Gastroenterology and Queenie Matthew 2 Encounter Hepatology Tyrell Rodriguez M.D. [address] [place] [phone] Surgery Gastroenterology and Inchantell Matthew ESOPHAG OGASTRODUODENOSCOPY 2 Hepatology Tyrell Rodriguez M.D. [address] [place] [phone] Telemedicine Transplant 2 Lab Laboratory Medicine Karin, 2 Adeline Gannon M.D., Ph.D. [address] [place] [phone] Lab Laboratory Medicine Karin, 2 Adeline Gannon M.D., Ph.D. [address] [place] [phone] Office Visit Transplant Karin, 2 Adeline Gannon M.D., Ph.D. [address] [place] [phone] Office Visit [facility], [facility] Internal [facility], 2 Medicine Vernell Perez [address] [place] [phone] Appointment Radiology Matthew Jerome 2 Y, Lilian Santillan [address] [place] [phone] Appointment Gastroenterology and Olinda Silver Hepatology Yue Burciaga M.D. [address] [place] [phone] Office Visit Gastroenterology and Matthew Jerome 2 Hepatology Tyrell Rodriguez M.D. [address] [place] [phone] Appointment Radiology Matthew Jerome 2, M.B.B.S., M.D. [address] [place] [phone] Scheduled Procedures Name Priority Associated Diagnoses Date/Time [...] documented as of this encounter Care Teams Work Distributor Relationship Specialty Start Date End Date Elsewhere, Pcp PCP - General Family Medicine 03/10/20 11/30/21 [facility] [place] [facility] 08/25/21 Ervin Schroeder MD Referring Provider Family Medicine 03/24/[address] [place] [address] [phone] documented as of this encounter
--- OUTSIDE RECORDS SUMMARY | 2022-02-04 23:17 | XMS_ITS | Encounter Summary ---
:1990 Author Organization [facility] Address [address] [place] [address] Care Team Providers Name Role Phone Elsewhere, Pcp Primary Care Provider Unavailable Reason for Visit Reason Comments Phone Contact Records 08/03 Encounter Details Date Type Department Care Team Description 08/29/2021 Clinical Department of Matthew Jerome Phone Contact Communication Gastroenterology in Vik RodriguezB.S., (Record s 08/03) [place], [place] M.DSuma 1025 [facility] 1025 [place] [phone] [place] [phone] Social History Tobacco Use Types Packs/Day Years [...] do you attend evangelical or Never 2021 alevism services? Do you [...] or the highest technical, or vocational p [facility] degree you have received? 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 [address] [place] [phone] Lab Laboratory Medicine Karin, 2 Adeline Gannon M.D., Ph.D. [address] [place] [phone] Office Visit Transplant Karin 2 Adeline Gannon M.D., Ph.D. [address] [place] [phone] Office Visit Community Internal [facility], 2 Medicine Vernell Perez [address] [place] [phone] Appointment Radiology Richantell Matthew 2 Y, Tyrell, Lilian [address] [place] [phone] Appointment Gastroenterology and [place]ne, 2 Hepatology Yue Burciaga M.D. [address] [place] [phone] Office Visit Gastroenterology and Matthew Jerome 2 Hepatology Vik RodriguezBLilian Bedolla [address] [place] [phone] Appointment Radiology LuisMatthew abdul 2 YTyrell M.D. [address] [place] [phone] Scheduled Procedures Name Priority Associated Diagnoses Date/Time ESOPHAGOGASTRODUODENOSCOPY Cirrhosis Alc oholic (HCC) 02/10/2022 8:45 AM CDT Hypertension Portal (HCC) documented as of this encounter Visit Diagnoses Not on filedocumented in this encounter Additional Health Concerns Infection Onset Date Last Indicated Resolved Time COVID19 Pending 08/29/2021 08/29/2021 08/29/2021 11:29 PM CDT documented as of this encounter Care Teams Rocket Scientist Relationship Specialty Start Date End Date Elsewhere, Pcp PCP - General Family Medicine 03/10/20 11/30/21 [facility] [place] [facility] 08/25/21 Ervin Schroeder MD Referring Provider Family Medicine 03/24/[address] [place] [phone] documented as of this encounter
--- OUTSIDE RECORDS SUMMARY | 2022-02-04 23:17 | XMS_ITS | Encounter Summary ---
:1990 Author Organization [facility] Address [address] [place] [address] Care Team Providers Name Role Phone Elsewhere, Pcp Primary Care Provider Unavailable Reason for Visit Reason Comments Patient Education Encounter Details Date Type Department Care Team Description 09/03/2021 Clinical Communication Department of Loreta Vazquez ent Education Infusion Therapy in M, R.N. [place], [place] [address] [place] [address] Social History Tobacco Use Types [...] do you attend sikhism or Never 2021 congregation services? 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 [address] [place] [phone] Surgery Gastroenterology and [facility] ESOPHAG OGASTRODUODENOSCOPY 2 Hepatology Tyrell Rodriguez, Lilian [address] [place] [phone] Telemedicine Transplant 2 Lab Laboratory Medicine Karin, 2 Adeline Gannon M.D., Ph.D. [address] [place] [phone] Lab Laboratory Medicine Olinda Frazier M.D., Ph.D. [address] [place] [phone] Office Visit Transplant Olinda Frazier M.D., Ph.D. [address] [place] [phone] Office Visit Community Internal [facility], 2 Medicine Vernell Perez [address] [place] [phone] Appointment Radiology Matthew Jerome 2 YVikBLilian Bedolla [address] [place] [phone] Appointment Gastroenterology and Adrian[place], 2 Hepatology Yue Burciaga M.D. [address] [place] [phone] Office Visit Gastroenterology and Matthew Jerome 2 Hepatology Joshua RodriguezBSumaBSumaSLilian Moise [address] [place] [phone] Appointment Radiology Matthew Jerome 2 Y M.B.B.SLilian Moise [address] [place] [phone] Scheduled Procedures Name Priority Associated Diagnoses Date/Time ESOPHAGOGASTRODUODENOSCOPY Cirrhosis Alc oholic (HCC) 02/10/2022 8:45 AM CDT Hypertension Portal (HCC) documented as of this encounter Visit Diagnoses Not on filedocumented in this encounter Additional Health Concerns Infection Onset Date Last Indicated Resolved Time COVID19 08/29/2021 08/29/2021 09/18/2021 8:31 AM CDT documented as of this encounter Care Teams Blast Setter Relationship Specialty Start Date End Date Elsewhere, Pcp PCP - General Family Medicine 03/10/20 11/30/21 [facility] [place] [facility] 08/25/21 Ervin Schroeder MD Referring Provider Family Medicine 03/24/[address] [place] [phone] documented as of this encounter
--- OUTSIDE RECORDS SUMMARY | 2022-02-04 23:17 | XMS_ITS | Encounter Summary ---
:1990 Author Organization [facility] Address [address] [place] [address] Care Team Providers Name Role Phone Elsewhere, Pcp Primary Care Provider Unavailable Encounter Details Date Type Department Care Team Description 09/19/2021 Hospital Encounter Department of Matthew Jerome Abnorm al Liver Laboratory Medicine M.BSumaBSumaSSuma, M. D. Function Test in [address] [address] [place] [phone] (Work) [phone] Social History Tobacco Use Types Packs/Day Years [...] do you attend taoist or Never 2021 adventist services? 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 sodium bicarbonate 650 [...] Type Specialty Care Team Description Hospital Radiology [facility] 2 Encounter Tyrell Rodriguez M.D. [address] [place] [phone] [facility] Gastroenterology and [facility] 2 Encounter Hepatology Tyrell Rodriguez M.D. [address] [place] [phone] Surgery Gastroenterology and [facility] ESOPHAG OGASTRODUODENOSCOPY 2 Hepatology Tyrell Rodriguez M.D. [address] [place] [phone] Telemedicine Transplant 2 Lab Laboratory Medicine Karin, Olinda Gannon M.D., Ph.D. [address] [place] [phone] Lab Laboratory Medicine Olinda Frazier M.D., Ph.D. [address] [place] [phone] Office Visit Transplant Karin, 2 Adeline Gannon M.D., Ph.D. [address] [place] [phone] Office Visit Community Internal [facility], 2 Medicine Vernell Perez [address] [place] [phone] Appointment Radiology Matthew Jerome 2 YTyrell, Lilian [address] [place] [phone] Appointment Gastroenterology and Adrianne, 2 Hepatology Yue Burciaga M.D. [address] [place] [phone] Office Visit Gastroenterology and Matthew Jerome 2 Hepatology YVikBGraeme, Lilian [address] [place] [phone] Appointment Radiology Matthew Jerome 2 YJoshuaBSumaBGraeme, Lilian [address] [place] [phone] Scheduled Procedures Name Priority Associated Diagnoses Date/Time [...] CDT eGFR-Black/Afric >90 >=60 09/19/2021 OWAT an Colombian mL/min/BSA 4:09 PM CDT Comment: ----ADDITIONAL INFORMATION---- [...] Phon e Number [facility]- [address] [place] [address] [place] [address] System in [place] [address] [facility] documented in this encounter Visit Diagnoses Diagnosis Abnormal Liver Function Test Cirrhosis Alcoholic (HCC) Hypertension Portal (HCC) documented in this encounter Care Teams Probation Supervisor Relationship Specialty Start Date End Date Elsewhere, Pcp PCP - General Family Medicine 03/10/20 11/30/21 [facility] [place] [facility] 08/25/21 Ervin Schroeder MD Referring Provider Family Medicine 03/24/211979 [address] [place] [address] documented as of this encounter
--- OUTSIDE RECORDS SUMMARY | 2022-02-04 23:17 | XMS_ITS | Encounter Summary ---
:[address] [facility] Address [address] [place] [address] Care Team Providers Name Role Phone Elsewhere, Pcp Primary Care Provider Unavailable Encounter Details Date Type Department Care Team Description 09/05/2021 Clinical Communication Division of [place], Gastroenterology in Warren Schaefer M.D.[place], [place] M.P.H. [address] [facility] [address] [place] [phone] [place], [place] [phone] Social History Tobacco Use Types Packs/Day Years [...] do you attend amish or Never 2021 jehovah's witness services? 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 Hernández ordered a variety of tests for patient ot complete closer to home. [facility] reachedout to patient to offer tests closer to home and patient stated she would rather drive to [place] for all testing. Due to patient preference, the following orders will need [facility] before we are able to schedule for patient in [place]. 1. BMD bone Density Spine and Hips [...] Hospital Radiology Matthew Jerome 2 Encounter Tyrell RodriguezLilian [address] [place] [phone] Hospital Gastroenterology and [facility] 2 Encounter Hepatology Tyrell Rodriguez, Lilian [address] [place] [phone] Surgery Gastroenterology and [facility] ESOPHAG OGASTRODUODENOSCOPY 2 Hepatology Tyrell Rodriguez M.D. [address] [place] [phone] Telemedicine Transplant 2 Lab Laboratory Medicine Karin, 2 Adeline Gannon M.D., Ph.D. [address] [place] [phone] Lab Laboratory Medicine Karin, 2 Adeline Gannon M.D., Ph.D. [address] [place] [phone] Office Visit Transplant Karin, 2 Adeline Gannon M.D., Ph.D. [address] [place] [phone] Office Visit Community Internal [facility], 2 Medicine Vernell Perez [address] [place] [phone] Appointment Radiology [facility] 2 YTyrell, Lilian [address] [place] [phone] Appointment Gastroenterology and [place], 2 Hepatology Yue Burciaga M.D. [address] [place] [address] Office Visit Gastroenterology and Matthew Jerome 2 Hepatology Tyrell Rodriguez M.D. 10[address] [place] [phone] Appointment Radiology LuisMatthew abdul 2 YTyrell M.D. [address] [place] [phone] Scheduled Procedures Name Priority Associated Diagnoses Date/Time ESOPHAGOGASTRODUODENOSCOPY Cirrhosis Alc oholic (HCC) 02/10/2022 8:45 AM CDT Hypertension Portal (HCC) documented as of this encounter Visit Diagnoses Not on filedocumented in this encounter Additional Health Concerns Infection Onset Date Last Indicated Resolved Time COVID19 08/29/2021 08/29/2021 09/18/2021 8:31 AM CDT documented as of this encounter Care Teams Positive Printer Operator Relationship Specialty Start Date End Date Elsewhere, Pcp PCP - General Family Medicine 03/10/20 11/30/21 [facility] [place] [facility] 08/25/21 Ervin Schroeder MD Referring Provider Family Medicine 03/24/[address] [place] [phone] documented as of this encounter
--- OUTSIDE RECORDS SUMMARY | 2022-02-04 23:17 | XMS_ITS | Encounter Summary ---
:1990 Author Organization [facility] Address [address] [place] [address] Care Team Providers Name Role Phone Elsewhere, Pcp Primary Care Provider Unavailable Encounter Details Date Type Department Care Team Description 09/09/2021 Orders Only Department of Mousa, Matthew Y, Abnormal Angelica er Gastroenterology in M.B.Yelena. M. Slick. Function Test [address] (Primary Dx) 1025 [place] [address] [phone] Social History Tobacco Use Types Packs/Day Years [...] do you attend jain or Never 2021 amish services? 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 encounter Plan of Treatment Upcoming Encounters Date Type Specialty Care Team Description Hospital Radiology Mechantell Matthew 2 Encounter Tyrell Rodriguez, Lilian [address] [place] [phone] Hospital Gastroenterology and Queenie Matthew 2 Encounter Hepatology Tyrell Rodriguez, Lilian [address] [place] [address] [phone] Surgery Gastroenterology and Queenie Matthew ESOPHAG OGASTRODUODENOSCOPY 2 Hepatology Tyrell Rodriguez, Lilian 1025 [place] [phone] Telemedicine Transplant 2 Lab Laboratory Medicine Karin, Olinda Gannon M.D., Ph.D. [address] [place] [phone] Lab Laboratory Medicine Olinda Frazier M.D., Ph.D. [address] [place] [phone] Office Visit Transplant Karin, Olinda Gannon M.D., Ph.D. [address] [place] [address] [phone] Office Visit [facility], 2 Medicine Vernell Perez [address] [place] [phone] Appointment Radiology Matthew Jerome 2 Y, M.B.B.SSuma, Lilian [address] [place] [phone] Appointment Gastroenterology and Adrianne, 2 Hepatology Yue Burciaga M.D. [address] [place] [phone] Office Visit Gastroenterology and Matthew Jerome 2 Hepatology Jennifer M.B.B.SSuma, Lilian [address] [place] [phone] Appointment Radiology Matthew Jerome 2 Y M.B.B.SLilian Moise [address] [place] [phone] Scheduled Procedures Name Priority Associated Diagnoses Date/Time ESOPHAGOGASTRODUODENOSCOPY Cirrhosis Alc oholic (HCC) 02/10/2022 8:45 AM CDT Hypertension Portal (HCC) documented as of this encounter Results Creatinine with Estimated GFR (09/19/2021 1:32 PM CDT) P athologist Signature Creatinine 0.68 0.59 - 09/19/2021 OWAT 1.04 mg/dL 4:09 PM CDT eGFR-Black/Afric >90 >=60 09/19/2021 OWAT an Peruvian mL/min/BSA 4:09 PM CDT Comment: ----ADDITIONAL INFORMATION---- [...] Code Phon e Number [facility]- [address] [place] [address] [facility] [place] [place] [address] System in [place] [address] documented in this encounter Visit Diagnoses Diagnosis Abnormal Liver Function Test - Primary Cirrhosis Alcoholic (HCC) Hypertension Portal (HCC) documented in this encounter Additional Health Concerns Infection Onset Date Last Indicated Resolved Time COVID19 08/29/2021 08/29/2021 09/18/2021 8:31 AM CDT documented as of this encounter Care Teams Licensed Therapist Relationship Specialty Start Date End Date Elsewhere, Pcp PCP - General Family Medicine 03/10/20 11/30/21 [facility] [place] [facility] 08/25/21 Ervin Schroeder MD Referring Provider Family Medicine 03/24/211979 [place], [place] [address] documented as of this encounter
--- OUTSIDE RECORDS SUMMARY | 2022-02-04 23:17 | XMS_ITS | Encounter Summary ---
:1990 Author Organization [facility] Address [address] [place] [address] Care Team Providers Name Role Phone Elsewhere, Pcp Primary Care Provider Unavailable Encounter Details Date Type Department Care Team Description 09/01/2021 Clinical Communication Department of Matthew Jerome Gastroenterology in M.BJhoan, Joshua Kru[address] [phone] Social History Tobacco Use Types Packs/Day Years [...] do you attend moravian or Never 2021 evangelical services? 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 [place] is wondering if there is a day in which you would see this patient after they have all the testing. documented in this encounter Plan of Treatment Upcoming Encounters Date Type Specialty Care Team Description [facility] Radiology Matthew Jerome 2 Encounter Tyrell Rodriguez M.D. [address] [place] [phone] [facility] Gastroenterology and Matthew Jerome 2 Encounter Hepatology Tyrell Rodriguez M.D. 10[address] [place] [address] Surgery Gastroenterology and Matthew Jerome ESOPHAG OGASTRODUODENOSCOPY 2 Hepatology Joshua RodriguezBSumaBSumaSLilian Moise [address] [place] [address] Telemedicine Transplant 2 Lab Laboratory Medicine Karin, 2 Adeline Gannon M.D., Ph.D. [address] [place] [phone] Lab Laboratory Medicine Karin, 2 Adeline Gannon M.D., Ph.D. [address] [place] [phone] Office Visit Transplant Karin, 2 Adeline Gannon M.D., Ph.D. [address] [place] [phone] Office Visit [facility] Internal [facility], 2 Medicine Vernell Perez [address] [place] [phone] Appointment Radiology Matthew Jerome 2 Jennifer M.B.B.SLilian Moise [address] [place] [phone] Appointment Gastroenterology and Adrianne, 2 Hepatology Yue Burciaga M.D. [address] [place] [phone] Office Visit Gastroenterology and Matthew Jerome 2 Hepatology Tyrell Rodriguez, Lilian [address] [place] [phone] Appointment Radiology Matthew Jermoe 2 Tyrell Rodriguez M.D. [address] [place] [phone] Scheduled Procedures Name Priority Associated Diagnoses Date/Time ESOPHAGOGASTRODUODENOSCOPY Cirrhosis Alc oholic (HCC) 02/10/2022 8:45 AM CDT Hypertension Portal (HCC) documented as of this encounter Visit Diagnoses Not on filedocumented in this encounter Additional Health Concerns Infection Onset Date Last Indicated Resolved Time COVID19 08/29/2021 08/29/2021 09/18/2021 8:31 AM CDT documented as of this encounter Care Teams Ping Pong Table Assembler Relationship Specialty Start Date End Date Elsewhere, Pcp PCP - General Family Medicine 03/10/20 11/30/21 [facility] [place] [facility] 08/25/21 Ervin Schroeder MD Referring Provider Family Medicine 03/24/[address] [place], [place] [phone] documented as of this encounter
--- OUTSIDE RECORDS SUMMARY | 2022-02-04 23:17 | XMS_ITS | Encounter Summary ---
:1990 Author Organization [facility] Address [address] [place] [address] Care Team Providers Name Role Phone Elsewhere, Pcp Primary Care Provider Unavailable Reason for Visit Reason Comments Appointment PMR PT Encounter Details Date Type Department Care Team Description 09/15/2021 Clinical Department of Matthew Jerome Appointment (P MR Communication Gastroenterology in Y, M.B.B.S., PT) [facility] 1025 [facility] 1025 [place] [address] [place] [phone] Social History Tobacco Use Types Packs/Day Years [...] do you attend caodaism or Never 2021 adventism services? 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 Thank you in advance Telephone Encounter - Andreas Lopez - 09/15/2021 11:[address] Queenie Henson could you please place an order for [place] for PMR PT appt. Pt would like to see in there is anything available while she is here for LTE. Thank you in advance documented in this encounter Plan of Treatment Upcoming Encounters Date Type Specialty Care Team Description Hospital Radiology Matthew Jerome 2 Encounter Joshua RodriguezB.B.S., M.D. [address] [place] [address] Hospital Gastroenterology and [facility] 2 Encounter Hepatology Tyrell Rodriguez M.D. 10[address] [place] [address] Surgery Gastroenterology and [facility] ESOPHAG OGASTRODUODENOSCOPY 2 Hepatology Tyrell Rodriguez M.D. 10[address] [place] [address] Telemedicine Transplant 2 Lab Laboratory Medicine Karin, 2 Adeline Gannon M.D., Ph.D. [address] [place] [phone] Lab Laboratory Medicine Karin, 2 Adeline Gannon M.D., Ph.D. [address] [place] [address] Office Visit Transplant Karin, 2 Adeline Gannon M.D., Ph.D. [address] [place] [phone] Office Visit [facility] Internal [facility], 2 Medicine Vernell Perez [address] [place] [phone] [facility] 2 YTyrell, Lilian [address] [place] [phone] Appointment Gastroenterology and [place], 2 Hepatology Yue Burciaga M.D. [address] [place] [address] Office Visit Gastroenterology and Matthew Jerome 2 Hepatology Vik RodriguezBGraeme, Lilian 10[address] [place] [phone] Appointment Radiology LuisMatthew abdul 2 YJoshuaBSumaBGraeme, Lilian [address] [place] [address] Scheduled Procedures Name Priority Associated Diagnoses Date/Time ESOPHAGOGASTRODUODENOSCOPY Cirrhosis Alc oholic (HCC) 02/10/2022 8:45 AM CDT Hypertension Portal (HCC) documented as of this encounter Visit Diagnoses Not on filedocumented in this encounter Additional Health Concerns Infection Onset Date Last Indicated Resolved Time COVID19 08/29/2021 08/29/2021 09/18/2021 8:31 AM CDT documented as of this encounter Care Teams Fireworks Maker Relationship Specialty Start Date End Date Elsewhere, Pcp PCP - General Family Medicine 03/10/20 11/30/21 [facility] [place] [facility] 08/25/21 Ervin Schroeder MD Referring Provider Family Medicine 03/24/[address] [place] [phone] documented as of this encounter
--- OUTSIDE RECORDS SUMMARY | 2022-02-04 23:17 | XMS_ITS | Encounter Summary ---
:1990 Author Organization [facility] Address [address] [place] [address] Care Team Providers Name Role Phone Elsewhere, Pcp Primary Care Provider Unavailable Encounter Details Date Type Department Care Team Description 08/29/2021 Orders Only Department of Mousa, Matthew Y, Deficiency C oagulation Acquired (HCC) (Primary Dx); Gastroenterology in Joshua Santillan Cirrhosis Alcoholic (HCC) [place], [place] 1025 [facility] 1025 [place] [address] [phone] Social History Tobacco Use Types Packs/Day Years [...] do you attend zoroastrian or Never 2021 sabianist services? 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 [address] [place] [phone] Lab Laboratory Medicine Saranela, 2 Adeline Gannon M.D., Ph.D. [address] [place] [phone] Office Visit Transplant Karin, 2 Adeline Gannon M.D., Ph.D. [address] [place] [phone] Office Visit [facility], 2 Medicine Vernell Perez [address] [place] [phone] Appointment Radiology Matthew Jerome 2 Y, M.B.B.SSuma, Lilian [address] [place] [phone] Appointment Gastroenterology and Adrianne, 2 Hepatology Yue Burciaga M.D. [address] [place] [phone] Office Visit Gastroenterology and Matthew Jerome 2 Hepatology Jennifer M.B.B.SLilian Moise [address] [place] [phone] Appointment Radiology Matthew Jerome 2 Y M.B.B.SLilian Moise [address] [place] [phone] Scheduled Procedures Name Priority Associated Diagnoses Date/Time ESOPHAGOGASTRODUODENOSCOPY Cirrhosis Alc oholic (HCC) 02/10/2022 8:45 AM CDT Hypertension Portal (HCC) documented as of this encounter Visit Diagnoses Diagnosis Deficiency Coagulation Acquired (HCC) - Primary Cirrhosis Alcoholic (HCC) Cirrhosis Alcoholic (HCC) Hypertension Portal (HCC) documented in this encounter Care Teams Shank Archer Relationship Specialty Start Date End Date Elsewhere, Pcp PCP - General Family Medicine 03/10/20 11/30/21 [facility] 08/25/21 Ervin Schroeder MD Referring Provider Family Medicine 03/24/[address] [place] [address] documented as of this encounter
--- OUTSIDE RECORDS SUMMARY | 2022-02-04 23:17 | XMS_ITS | Encounter Summary ---
:1990 Author Organization [facility] Address [address] [place] [address] Care Team Providers Name Role Phone Elsewhere, Pcp Primary Care Provider Unavailable Encounter Details Date Type Department Care Team Description 09/03/2021 Virtual Visit Division of [facility] Marco Alberto A bnormal Liver Internal Medicine, M.D. Function Test [facility] in [address] [place] [address] [place] [phone] [place], [place] [phone] (Work) [phone] Social History Tobacco Use Types Packs/Day Years [...] do you attend denominational or Never 2021 yazdanism services? 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 - 09/03/2021 5:24 PM CDT Note in error. documented in this encounter Plan of Treatment Upcoming Encounters Date Type Specialty Care Team Description Hospital Radiology Matthew Jerome 2 Encounter Tyrell Rodriguez M.D. 1025 [place] [phone] [facility] Gastroenterology and Matthew Jerome 2 Encounter Hepatology Tyrell Rodriguez M.D. 1025 [place] [phone] Surgery Gastroenterology and Matthew Jerome ESOPHAG OGASTRODUODENOSCOPY 2 Hepatology Tyrell Rodriguez M.D. 10[address] [place] [address] Telemedicine Transplant 2 Lab Laboratory Medicine Karin, 2 Adeline Gannon M.D., Ph.D. [address] [place] [phone] Lab Laboratory Medicine Kairn, 2 Adeline Gannon M.D., Ph.D. [address] [place] [phone] Office Visit Transplant Karin, 2 Adeline Gannon M.D., Ph.D. [address] [place] [phone] Office Visit [facility], 2 Medicine Carlotta PerezCSuma [address] [place] [phone] Appointment Radiology Matthew Jerome 2 Joshua RodriguezBSumaBLilian Bedolla 10[address] [place] [address] Appointment Gastroenterology and Adrianne, 2 Hepatology Yue Burciaga M.D. [address] [place] [phone] Office Visit Gastroenterology and Queenie Matthew 2 Hepatology Joshua RodriguezBSumaBLilian Bedolla 1025 [place] [phone] Appointment Radiology Matthew Jerome 2 YTyrell M.D. [address] [place] [phone] Scheduled Procedures Name Priority Associated Diagnoses [...] documented as of this encounter Care Teams Wildlife Refuge Manager Relationship Specialty Start Date End Date Elsewhere, Pcp PCP - General Family Medicine 03/10/20 11/30/21 [facility] [place] [facility] 08/25/21 Ervin Schroeder MD Referring Provider Family Medicine 03/24/[address] [place] [address] documented as of this encounter
--- OUTSIDE RECORDS SUMMARY | 2022-02-04 23:17 | XMS_ITS | Encounter Summary ---
:1990 Author Organization [facility] Address [address] [place] [address] Care Team Providers Name Role Phone Elsewhere, Pcp Primary Care Provider Unavailable Encounter Details Date Type Department Care Team Description 08/29/2021 Lab Department of Kerry [facility] [place], YARITZA, M.S.N ., R.N. Preprocedural Laboratory [address] Examination (COVID-19) [facility]5 [place] [address] [phone] (Wo rk) Social History Tobacco Use Types [...] do you attend methodist or Never 2021 spiritism services? 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 - 08/30/2021 9:03 AM CDT Your [...] coordinate the care. For questions, contact the [facility] Covid Care Team ([facility]): Pager: [phone] In basket: P [facility] COVID-19 POSITIVE Covid Care e-consult NOTE: At the time of testing, patients are instructed to obtain the result by calling the [employer] result line or by checking their online services account. documented in this encounter Plan of Treatment Upcoming Encounters Date Type Specialty Care Team Description Hospital Radiology [facility] 2 Encounter Tyrell Rodriguez M.D. [address] [place] [phone] Hospital Gastroenterology and [facility] 2 Encounter Hepatology Tyrell Rodriguez M.D. [address] [place] [phone] Surgery Gastroenterology and [facility] ESOPHAG OGASTRODUODENOSCOPY 2 Hepatology Tyrell Rodriguez M.D. [address] [place] [phone] Telemedicine Transplant 2 Lab Laboratory Medicine Karin, Olinda Gannon M.D., Ph.D. [address] [place] [phone] Lab Laboratory Medicine Karin, Olinda Gannon M.D., Ph.D. [address] [place] [phone] Office Visit Transplant Karin, Olinda Gannon M.D., Ph.D. [address] [place] [phone] Office Visit [facility], 2 Solitario Perez P.A.-C. [address] [place] [phone] Appointment Radiology Matthew Jerome 2 YJoshuaBSumaBLilian Bedolla [address] [place] [phone] Appointment Gastroenterology and Adrianne, 2 Hepatology Yue Burciaga M.D. [address] [place] [phone] Office Visit Gastroenterology and Matthew Jerome 2 Hepatology Vik RodriguezBLilian Bedolla [address] [place] [phone] Appointment Radiology Matthew Jerome 2 YJoshuaBSumaBLilian Bedolla [address] [place] [phone] Scheduled Procedures Name Priority Associated Diagnoses Date/Time [...] RNA, V Asymptomatic (08/29/2021 4:14 PM CDT) [facility] Method Time Signature SARS-CoV-2 Swab, 08/29/2021 MKTO Specimen Nasopharynx 11:28 PM Source CDT SARS CoV-2 Detected (A) Undetected 08/29/2021 MKTO RNA, TMA 11:28 PM CDT Comment: SARS-CoV-2 RNA present. ----ADDITIONAL INFORMATION---- This molecular amplification test was pe rformed using the Aptima SARS-CoV-2 assay ([employer] on the [employer] tem under emergency use authorization (EUA) by the U.S. Food and Drug Administ ration. Fact sheets for this EUA assay can be fo und at the following links: For Healthcare Providers: https://www.fd a.gov/media/310037/download For Patients: https://www.fda.gov/media/ 629183/download Specimen Anatomical Collection Method Collection Time Receive d Time (Source) Location / / Volume Laterality Varies 08/29/2021 4:14 PM 5:17 (Nasopharynx) CDT PM CDT Kerry Naranjo APRN M.S.N., R.N. LAB MICROBIOLOGY - G ENERAL ORDERABLES Performing Organization Address City/State/[facility] Phon e Number [facility]- [address] [place] [address] [place] [address] [address] documented in this encounter Visit Diagnoses Diagnosis Encounter For Preprocedural Laboratory E xamination (COVID-19) Cirrhosis Alcoholic (HCC) Hypertension Portal (HCC) documented in this encounter Additional Health Concerns Infection Onset Date Last Indicated Resolved Time COVID19 Pending 08/29/2021 08/29/2021 08/29/2021 11:29 PM CDT documented as of this encounter Care Teams Chief Procurement Officer Relationship Specialty Start Date End Date Elsewhere, Pcp PCP - General Family Medicine 03/10/20 11/30/21 [facility] [place] [facility] 08/25/21 Ervin Schroeder MD Referring Provider Family Medicine 03/24/211979 [address] [place] [address] documented as of this encounter
--- OUTSIDE RECORDS SUMMARY | 2022-02-04 23:17 | XMS_ITS | Encounter Summary ---
:1990 Author Organization [facility] Address [address] [place] [address] Care Team Providers Name Role Phone Elsewhere, Pcp Primary Care Provider Unavailable Encounter Details Date Type Department Care Team Description 09/05/2021 Clinical Communication Department of Kerry Naranjo Gastroenterology in [place], [place] M.S.N., R.N. 1025 [facility] 1025 [place] [address] [place], [place] [phone] Social History Tobacco Use Types Packs/Day [...] do you attend hindu or Never 2021 quaker services? 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 Kerry Kraus documented in this encounter Plan of Treatment Upcoming Encounters Date Type Specialty Care Team Description Hospital Radiology [facility] 2 Encounter Tyrell Rodriguez M.D. [address] [place] [phone] Hospital Gastroenterology and [facility] 2 Encounter Hepatology Tyrell Rodriguez M.D. [address] [place] [phone] Surgery Gastroenterology and [facility] ESOPHAG OGASTRODUODENOSCOPY 2 Hepatology Tyrell Rodriguez M.D. [address] [place] [phone] Telemedicine Transplant 2 Lab Laboratory Medicine Olinda Frazier M.D., Ph.D. [address] [place] [phone] Lab Laboratory Medicine Olinda Frazier M.D., Ph.D. [address] [place] [phone] Office Visit Transplant Olinda Frazier M.D., Ph.D. [address] [place] [phone] Office Visit [facility], 2 Solitario Perez P.A.-C. [address] [place] [phone] Appointment Radiology Matthew Jerome 2 YTyrell M.D. [address] [place] [phone] Appointment Gastroenterology and Adrianne, 2 Hepatology Yue Burciaga M.D. [address] [place] [phone] Office Visit Gastroenterology and Matthew Jerome 2 Hepatology Tyrell Rodriguez M.D. [address] [place] [phone] Appointment Radiology Matthew Jerome 2 YTyrell M.D. [address] [place] [phone] Scheduled Orders Name Type Priority Associated Diagnoses [...] documented as of this encounter Care Teams Movie Producer Relationship Specialty Start Date End Date Elsewhere, Pcp PCP - General Family Medicine 03/10/20 11/30/21 [facility] [place] lab 08/25/21 Ervin Schroeder MD Referring Provider Family Medicine 03/24/[address] [place] [address] documented as of this encounter
--- OUTSIDE RECORDS SUMMARY | 2022-02-04 23:17 | XMS_ITS | Encounter Summary ---
:1990 Author Organization [facility] Address [address] [place] [address] Care Team Providers Name Role Phone Elsewhere, Pcp Primary Care Provider Unavailable Reason for Visit Reason Comments Medication Question Encounter Details Date Type Department Care Team Description 08/31/2021 Nurse Triage Department of [facility]a [facility] Question Medicine, [facility], in [address] [place] [phone] [place] [address] [phone] Social History Tobacco Use Types Packs/Day Years [...] do you attend presybeterian or Never 2021 jew services? 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 ALTERNATE DISPOSITION - CALL DOCTOR WITHIN 24 HOURS: * The patient's healthcare provider (doctor, LABORER GOLD LEAF, or PA) may be able to handle [...] Encounters Date Type Specialty Care Team Description [facility] Radiology [facility] 2 Encounter Tyrell Rodriguez, MJules [address] [place] [phone] [facility] Gastroenterology and [facility] 2 Encounter Hepatology Tyrell Rodriguez M.D. [address] [place] [phone] Surgery Gastroenterology and [facility] ESOPHAG OGASTRODUODENOSCOPY 2 Hepatology Tyrell Rodriguez, MJules [address] [place] [phone] Telemedicine Transplant 2 Lab Laboratory Medicine Karin, Olinda Gannon M.D., Ph.D. [address] [place] [phone] Lab Laboratory Medicine Olinda Frazier M.D., Ph.D. [address] [place] [phone] Office Visit Transplant Olinda Frazier M.D., Ph.D. [address] [place] [phone] Office Visit [facility], 2 Medicine Vernell Perez [address] [place] [phone] Appointment Radiology Matthew Jerome 2 Y, M.B.B.SSuma, Lilian [address] [place] [phone] Appointment Gastroenterology and [place], 2 Hepatology Yue Burciaga M.D. [address] [place] [address] Office Visit Gastroenterology and Matthew Jerome 2 Hepatology Elizabeth Rodriguez.B.B.SSuma, Lilian 1025 [place] [phone] Appointment Radiology Matthew Jerome 2 Y M.B.B.SSuma, MJules [address] [place] [phone] Scheduled Procedures Name Priority Associated Diagnoses Date/Time ESOPHAGOGASTRODUODENOSCOPY Cirrhosis Alc oholic (HCC) 02/10/2022 8:45 AM CDT Hypertension Portal (HCC) documented as of this encounter Visit Diagnoses Not on filedocumented in this encounter Additional Health Concerns Infection Onset Date Last Indicated Resolved Time COVID19 08/29/2021 08/29/2021 09/18/2021 8:31 AM CDT documented as of this encounter Care Teams Nick Setter Relationship Specialty Start Date End Date Elsewhere, Pcp PCP - General Family Medicine 03/10/20 11/30/21 [facility] [place] [facility] 08/25/21 Ervin Schroeder MD Referring Provider Family Medicine 03/24/[address] [place] [address] [phone] documented as of this encounter
--- OUTSIDE RECORDS SUMMARY | 2022-02-04 23:17 | XMS_ITS | Encounter Summary ---
:1990 Author Organization [facility] Address [address] [place] [address] Care Team Providers Name Role Phone Elsewhere, Pcp Primary Care Provider Unavailable Encounter Details Date Type Department Care Team Description 09/01/2021 Clinical Communication Department of Kerry Naranjo Gastroenterology in [place], [place] M.S.N., R.N. 1025 [facility] 1025 [place] [address] [place], [place] [phone] Social History Tobacco Use Types Packs/Day [...] do you attend mosque or Never 2021 christian services? 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 Please enter another request. Thank you. documented in this encounter Plan of Treatment Upcoming Encounters Date Type Specialty Care Team Description [facility] Radiology Matthew Jerome 2 Encounter Tyrell Rodriguez M.D. [address] [place] [phone] [facility] Gastroenterology and Matthew Jerome 2 Encounter Hepatology Tyrell Rodriguez M.D. [address] [place] [phone] Surgery Gastroenterology and Matthew Jerome ESOPHAG OGASTRODUODENOSCOPY 2 Hepatology Joshua RodriguezB.B.SLilian Moise [address] [place] [phone] Telemedicine Transplant 2 Lab Laboratory Medicine Karin, 2 Adeline Gannon M.D., Ph.D. [address] [place] [phone] Lab Laboratory Medicine Karin, 2 Adeline Gannon M.D., Ph.D. [address] [place] [phone] Office Visit Transplant Karin, Olinda Gannon M.D., Ph.D. [address] [place] [phone] Office Visit [facility], 2 Medicine Carlotta PerezC. [address] [place] [phone] Appointment Radiology Matthew Jerome 2 YElizabeth.B.B.SLilian Moise [address] [place] [phone] Appointment Gastroenterology and [place], 2 Hepatology Yue Burciaga M.D. [address] [place] [phone] Office Visit Gastroenterology and Matthew Jerome 2 Hepatology Joshua RodriguezB.B.SLilian Moise [address] [place] [phone] Appointment Radiology Matthew Jerome 2 YTyrell, Lilian 1025 [place] [phone] Scheduled Procedures Name Priority Associated Diagnoses Date/Time ESOPHAGOGASTRODUODENOSCOPY Cirrhosis Alc oholic (HCC) 02/10/2022 8:45 AM CDT Hypertension Portal (HCC) documented as of this encounter Visit Diagnoses Not on filedocumented in this encounter Additional Health Concerns Infection Onset Date Last Indicated Resolved Time COVID19 08/29/2021 08/29/2021 09/18/2021 8:31 AM CDT documented as of this encounter Care Teams Leather Goods Sales Representative Relationship Specialty Start Date End Date Elsewhere, Pcp PCP - General Family Medicine 03/10/20 11/30/21 [facility] [place] lab 08/25/21 Ervin Schroeder MD Referring Provider Family Medicine 03/24/[address] [place] [phone] documented as of this encounter
--- OUTSIDE RECORDS SUMMARY | 2022-02-04 23:17 | XMS_ITS | Encounter Summary ---
:1990 Author Organization [facility] Address [address] [place] [address] Care Team Providers Name Role Phone Elsewhere, Pcp Primary Care Provider Unavailable Reason for Visit Reason Comments Medical Information Encounter Details Date Type Department Care Team Description 08/30/2021 Nurse Triage Department of Joshua Resendiz, Medical Information Medicine, [facility], [facility], [place] [address] [place] [phone] Social History Tobacco Use Types Packs/Day Years [...] do you attend jew or Never 2021 sabianism services? 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 https://www.cdc.gov/coronavirus/2019-ncov/vaccines/about-vaccines/index.html?s_c ts=94348:covid%20vaccine:sonja.ga:p:RG:GM:gen:PTN: Calling to request: information The recommended disposition is Manage symptoms at home. documented in this encounter Plan of Treatment Upcoming Encounters Date Type Specialty Care Team Description [facility] Radiology Matthew Jerome 2 Encounter Y, MLilian Perez [address] [place] [phone] Hospital Gastroenterology and [facility] 2 Encounter Hepatology YTyrell M.D. [address] [place] [address] Surgery Gastroenterology and [facility] ESOPHAG OGASTRODUODENOSCOPY 2 Hepatology YTyrell M.D. [address] [place] [phone] Telemedicine Transplant 2 Lab Laboratory Medicine Karin, 2 Adeline Gannon M.D., Ph.D. [address] [place] [phone] Lab Laboratory Medicine Karin, 2 Adeline Gannon M.D., Ph.D. [address] [place] [phone] Office Visit Transplant Karin, 2 Adeline Gannon M.D., Ph.D. [address] [place] [phone] Office Visit [facility] Internal [facility], 2 Medicine Carlotta PerezC. [address] [place] [phone] Appointment Radiology [facility] 2 YTyrell, Lilian [address] [place] [address] Appointment Gastroenterology and [place], 2 Hepatology Yue Burciaga M.D. [address] [place] [phone] Office Visit Gastroenterology and Matthew Jerome 2 Hepatology Tyrell Rodriguez, Lilian [address] [place] [phone] Appointment Radiology LuisMatthew abdul 2 Joshua RodriguezBJhoan, Lilian [address] [place] [address] Scheduled Procedures Name Priority Associated Diagnoses Date/Time ESOPHAGOGASTRODUODENOSCOPY Cirrhosis Alc oholic (HCC) 02/10/2022 8:45 AM CDT Hypertension Portal (HCC) documented as of this encounter Visit Diagnoses Not on filedocumented in this encounter Additional Health Concerns Infection Onset Date Last Indicated Resolved Time COVID19 08/29/2021 08/29/2021 09/18/2021 8:31 AM CDT documented as of this encounter Care Teams Watch Leader Relationship Specialty Start Date End Date Elsewhere, Pcp PCP - General Family Medicine 03/10/20 11/30/21 [facility] [place] [facility] 08/25/21 Ervin Schroeder MD Referring Provider Family Medicine 03/24/[address] [place] [phone] documented as of this encounter
--- OUTSIDE RECORDS SUMMARY | 2022-02-04 23:17 | XMS_ITS | Encounter Summary ---
:1990 Author Organization [facility] Address [address] [place] [address] Care Team Providers Name Role Phone Elsewhere, Pcp Primary Care Provider Unavailable Reason for Visit Reason Comments Medication Question Encounter Details Date Type Department Care Team Description 09/18/2021 Clinical Department of Aamir Spicer Gastroenterology in [place], [place] L.P.N. 1025 [facility] [phone] [place] [phone] 2 (Work) [phone] Social History Tobacco Use Types Packs/Day Years [...] do you attend christian or Never 2021 voodoo services? 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 - 09/18/2021 10:30 AM CDT Portal message sent to the patient clarifying with pharmacy she would like the Rx faxed to. Telephone Encounter - Felicita Spicer L.PSumaN. - 09/18/2021 8:08 AM CDT Patient called [...] Matthew Jerome 2 Encounter Tyrell Rodriguez, Lilian [address] [place] [phone] Hospital Gastroenterology and [place]ell Matthew 2 Encounter Hepatology Tyrell Rodriguez, Lilian [address] [place] [phone] Surgery Gastroenterology and [facility] Matthew ESOPHAG OGASTRODUODENOSCOPY 2 Hepatology Tyrell Rodriguez, Lilian [address] [place] [phone] Telemedicine Transplant 2 Lab Laboratory Medicine Karin, 2 Adeline Gannon M.D., Ph.D. [address] [place] [phone] Lab Laboratory Medicine Karin, 2 Adeline Gannon M.D., Ph.D. [address] [place] [phone] Office Visit Transplant Karin, 2 Adeline Gannon M.D., Ph.D. [address] [place] [phone] Office Visit Community Internal [facility], 2 Solitario Perez P.A.-C. [address] [place] [phone] Appointment Radiology Matthew Jerome 2 Y, M.B.B.SSuma, Lilian 10[address] [place] [phone] Appointment Gastroenterology and Adrianne 2 Hepatology Yue Burciaga M.D. [address] [place] [phone] Office Visit Gastroenterology and Queenie Matthew 2 Hepatology Joshua RodriguezB.B.SLilian Moise [address] [place] [phone] Appointment Radiology Matthew Jerome 2 YJoshuaB.B.Kath, Lilian [address] [place] [phone] Scheduled Procedures Name Priority Associated Diagnoses Date/Time [...] as of this encounter Care Teams School Commissioner Relationship Specialty Start Date End Date Elsewhere, Pcp PCP - General Family Medicine 03/10/20 11/30/21 [facility] [place] [facility] 08/25/21 Ervin Schroeder MD Referring Provider Family Medicine 03/24/[address] [place] [phone] documented as of this encounter
--- OUTSIDE RECORDS SUMMARY | 2022-02-04 23:17 | XMS_ITS | Encounter Summary ---
:1990 Author Organization [facility] Address [address] [place] [address] Care Team Providers Name Role Phone Elsewhere, Pcp Primary Care Provider Unavailable Encounter Details Date Type Department Care Team Description 08/31/2021 Nurse Triage Department of Family Naila Walters R.N. Medicine, [facility], in [address] [place], [place] [address] [place] [phone] [place] [address] [phone] Social History Tobacco Use Types Packs/Day Years [...] do you attend scientology or Never 2021 yazidi services? Do you [...] or the highest technical, or vocational p [employer] degree you have received? 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 - 08/31/2021 10:46 AM CDT Patient reports receiving a text message from [facility] regarding her recent positive Covid test. The text provided a link which asked for a code. Patient is seeking more information regarding code. Unable to answer question at this time. Patient denies any worsening symptoms for triage at this time. Patient will check her email for more information from the [facility]. documented in this encounter Plan of Treatment Upcoming Encounters Date Type Specialty Care Team Description [facility] Radiology Matthew Jerome 2 Encounter Tyrell Rodriguez M.D. [address] [place] [phone] [facility] Gastroenterology and Matthew Jerome 2 Encounter Hepatology Tyrell Rodriguez M.D. 10[address] [place] [address] Surgery Gastroenterology and Matthew Jerome ESOPHAG OGASTRODUODENOSCOPY 2 Hepatology Joshua RodriguezBSumaBLilian Bedolla [address] [place] [address] Telemedicine Transplant 2 Lab Laboratory Medicine Karin, 2 Adeline Gannon M.D., Ph.D. [address] [place] [phone] Lab Laboratory Medicine Karin, 2 Adeline Gannon M.D., Ph.D. [address] [place] [phone] Office Visit Transplant Karin, 2 Adeline Gannon M.D., Ph.D. [address] [place] [phone] Office Visit [facility] Internal [facility], 2 Medicine Vernell Perez [address] [place] [phone] Appointment Radiology Matthew Jerome 2 Jennifer M.B.B.SLilian Moise [address] [place] [address] Appointment Gastroenterology and [place], 2 Hepatology Yue Burciaga M.D. [address] [place] [phone] Office Visit Gastroenterology and Matthew Jerome 2 Hepatology Tyrell Rodriguez, Lilian [address] [place] [phone] Appointment Radiology Matthew Jerome 2, M.B.B.S., M.D. [address] [place] [phone] Scheduled Procedures Name Priority Associated Diagnoses Date/Time ESOPHAGOGASTRODUODENOSCOPY Cirrhosis Alc oholic (HCC) 02/10/2022 8:45 AM CDT Hypertension Portal (HCC) documented as of this encounter Visit Diagnoses Not on filedocumented in this encounter Additional Health Concerns Infection Onset Date Last Indicated Resolved Time COVID19 08/29/2021 08/29/2021 09/18/2021 8:31 AM CDT documented as of this encounter Care Teams Draw Frame Runner Relationship Specialty Start Date End Date Elsewhere, Pcp PCP - General Family Medicine 03/10/20 11/30/21 [facility] [place] [facility] 08/25/21 Ervin Schroeder MD Referring Provider Family Medicine 03/24/[address] [place] [address] documented as of this encounter
--- OUTSIDE RECORDS SUMMARY | 2022-02-04 23:17 | XMS_ITS | Encounter Summary ---
:1990 Author Organization [facility] Address [address] [place] [address] Care Team Providers Name Role Phone Elsewhere, Pcp Primary Care Provider Unavailable Encounter Details Date Type Department Care Team Description 09/03/2021 Clinical Communication Division of Marco Zimmerman, [facility], [facility] [address] [place] [address] [place] [phone] [place], [place] [phone] (Work) [phone] Social History Tobacco Use Types Packs/Day Years [...] do you attend hoahaoism or Never 2021 spiritism services? 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 - 09/03/2021 5:26 PM CDT [facility] TELEPHONE COMMUNICATION NOTE Cia Agent: None The patient was called regarding a [...] your primary care provider or present to [facility] emergency department for evaluation. Treatment Options [...] references were used: Nursing or Provider judgement, [facility] workflow, [facility] Protocols Marco Alberto M.D. [place] COVID Care Team [facility] documented in this encounter Plan of Treatment Upcoming Encounters Date Type Specialty Care Team Description Hospital Radiology LuisMatthew abdul 2 Encounter YTyrell M.D. [address] [place] [phone] Hospital Gastroenterology and [place], Matthew 2 Encounter Hepatology Tyrell Rodriguez, Lilian [address] [place] [address] Surgery Gastroenterology and [facility], Matthew ESOPHAG OGASTRODUODENOSCOPY 2 Hepatology Tyrell Rodriguez M.D. [address] [place] [phone] Telemedicine Transplant 2 Lab Laboratory Medicine Karin, 2 Adeline Gannon M.D., Ph.D. [address] [place] [phone] Lab Laboratory Medicine Karin, 2 Adeline Gannon M.D., Ph.D. [address] [place] [phone] Office Visit Transplant Karin, 2 Adeline Gannon M.D., Ph.D. [address] [place] [phone] Office Visit [facility] [place], 2 Medicine Carlotta PerezC. [address] [place] [phone] Appointment Radiology Luischantell, Matthew 2 Tyrell Rodriguez, Lilian [address] [place] [phone] Appointment Gastroenterology and Adrianne, 2 Hepatology Yue Burciaga M.D. [address] [place] [phone] Office Visit Gastroenterology and LuisNew abdular 2 Hepatology Tyrell Rodriguez, Lilian [facility] [place] [phone] Appointment Radiology Matthew Jerome 2 Tyrell Rodriguez M.D. [address] [place] [phone] Scheduled Procedures Name Priority Associated Diagnoses Date/Time ESOPHAGOGASTRODUODENOSCOPY Cirrhosis Alc oholic (HCC) 02/10/2022 8:45 AM CDT Hypertension Portal (HCC) documented as of this encounter Visit Diagnoses Not on filedocumented in this encounter Additional Health Concerns Infection Onset Date Last Indicated Resolved Time COVID19 08/29/2021 08/29/2021 09/18/2021 8:31 AM CDT documented as of this encounter Care Teams Office Clerk Relationship Specialty Start Date End Date Elsewhere, Pcp PCP - General Family Medicine 03/10/20 11/30/21 [facility] [place] [facility] 08/25/21 Ervin Schroeder MD Referring Provider Family Medicine 03/24/[address] [place] [address] documented as of this encounter
--- OUTSIDE RECORDS SUMMARY | 2022-02-04 23:18 | XMS_ITS | Encounter Summary ---
:1990 Author Organization [facility] Address [address] [place] [address] Care Team Providers Name Role Phone Elsewhere, Pcp Primary Care Provider Unavailable Reason for Referral Transplant (Routine) - Closed Specialty Diagnoses / Procedures Referred By Contact Refer brianda To Contact Transplant [facility] / [facility]ian[facility] M.P.H. [address] [place] [address] Referral ID Status Reason Start Date Expiration Date Visits Requ ested Visits Authorized [id number] Closed 08/26/2021 08/26/2022 1 1 ransplant (Routine) - Authorized Specialty Diagnoses / Procedures Referred By Contact Refer brianda To Contact Transplant Surgery / Diagnoses Cirrhosis Alcoholic (HCC) Abnormal Liver Function Test Ascites Pretransplant Recipient Evaluation Exam Preoperative Exam Warren Connor [facility] Transplant Lilian, M.P.H. [address] [place] [address] Referral ID Status Reason Start Date Expiration Date Visits V isits Requested Authorized [id number] Authorized 08/25/2021 08/25/2022 1 1 utpatient (Routine) - Closed Specialty Diagnoses / Procedures Referred By Contact Refer red To Contact Diagnoses Cirrhosis Alcoholic (HCC) Abnormal Liver Function Test Ascites Pretransplant Recipient Evaluation Exam Preoperative Exam Warren Connor M.D., [facility] Procedures BMD Bone Density Spine Hips M.P.H. [address] [place] [address] Referral ID Status Reason Start Date Expiration Date Visits Requ ested Visits Authorized [id number] Closed 08/25/2021 08/25/2022 1 1 ransplant (Routine) - Closed Specialty Diagnoses / Procedures Referred By Contact Refer red To Contact Transplant Surgery / Diagnoses Cirrhosis Alcoholic (HCC) Abnormal Liver Function Test Ascites Pretransplant Recipient Evaluation Exam Preoperative Exam Warren Connor [facility] Transplant M.Jeri, M.P.H. [address] [place] [address] Referral ID Status Reason Start Date Expiration Date Visits Requ ested Visits Authorized [id number] Closed 08/25/2021 08/25/2022 1 1 ransplant (Routine) - Closed Specialty Diagnoses / Procedures Referred By Contact Refer red To Contact Transplant Surgery / Diagnoses Cirrhosis Alcoholic (HCC) Abnormal Liver Function Test Ascites Pretransplant Recipient Evaluation Exam Preoperative Exam Warren Connor [facility] Transplant M.Jeri, M.P.H. [address] [place] [address] Referral ID Status Reason Start Date Expiration Date Visits Requ ested Visits Authorized [id number] Closed 08/25/2021 08/25/2022 1 1 utpatient (Routine) - Closed Specialty Diagnoses / Procedures Referred By Contact Refer red To Contact Preventive Medicine Diagnoses Cirrhosis Alcoholic (HCC) Abnormal Liver Function Test Ascites Pretransplant Recipient Evaluation Exam Preoperative Exam Warren Connor [facility] Lilian, M.P.H. [address] [place] [address] Referral ID Status Reason Start Date Expiration Date Visits Requ ested Visits Authorized [id number] Closed 08/25/2021 08/25/2022 1 1 utpatient (Routine) - Closed Specialty Diagnoses / Procedures Referred By Contact Refer red To Contact Pulmonary Medicine / Diagnoses Cirrhosis Alcoholic (HCC) Abnormal Liver Function Test Ascites Pretransplant Recipient Evaluation Exam Preoperative Exam Warren Connor [facility] Nicotine Dependence Lilian, M.P.H. [address] [place] [address] Referral ID Status Reason Start Date Expiration Date Visits Requ ested Visits Authorized [id number] Closed 08/25/2021 08/25/2022 1 1 utpatient (Routine) - Closed Specialty Diagnoses / Procedures Referred By Contact Refer red To Contact Diagnoses Cirrhosis Alcoholic (HCC) Abnormal Liver Function Test Ascites Pretransplant Recipient Evaluation Exam Preoperative Exam Warren Connor M.D., [facility] Procedures ECG 12 Lead M.P.H. [address] [place] [address] Referral ID Status Reason Start Date Expiration Date Visits Requ ested Visits Authorized [id number] Closed 08/25/2021 08/25/2022 1 1 utpatient (Routine) - Closed Specialty Diagnoses / Procedures Referred By Contact Refer red To Contact Diagnoses Cirrhosis Alcoholic (HCC) Abnormal Liver Function Test Ascites Pretransplant Recipient Evaluation Exam Preoperative Exam Warren Connor M.D., [facility] Procedures Short renal clearance: Iothalamate (Renal Studies Unit) M.P.H. [address] [place] [address] Referral ID Status Reason Start Date Expiration Date Visits Requ ested Visits Authorized [id number] Closed 08/25/2021 08/25/2022 1 1 Specialty Diagnoses / Procedures Referred By Contact Refer red To Contact [facility] [address] [place] [address] Referral ID Status Reason Start Date Expiration Date Visits Requ ested Visits Authorized utpatient (Routine) - Closed Specialty Diagnoses / Procedures Referred By Contact Refer red To Contact Pharmacy Diagnoses Cirrhosis Alcoholic (HCC) Abnormal Liver Function Test Ascites Pretransplant Recipient Evaluation Exam Preoperative Exam Warren Connor M.D., [facility] M.P.H. [address] [place] [address] Referral ID Status Reason Start Date Expiration Date Visits Requ ested Visits Authorized [id number] Closed 08/25/2021 08/25/2022 1 1 ransplant (Routine) - Closed Specialty Diagnoses / Procedures Referred By Contact Refer red To Contact Transplant Surgery / Diagnoses Cirrhosis Alcoholic (HCC) Abnormal Liver Function Test Ascites Pretransplant Recipient Evaluation Exam Preoperative Exam Warren Connor [facility] Transplant Lilian, M.P.H. [address] [place] [address] Referral ID Status Reason Start Date Expiration Date Visits Requ ested Visits Authorized [id number] Closed 08/25/2021 08/25/2022 1 1 ransplant (Routine) - Closed Specialty Diagnoses / Procedures Referred By Contact Refer red To Contact Transplant Surgery / Diagnoses Cirrhosis Alcoholic (HCC) Abnormal Liver Function Test Ascites Pretransplant Recipient Evaluation Exam Preoperative Exam Warren Connor [facility] Transplant Lilian, M.P.H. [address] [place] [address] Referral ID Status Reason Start Date Expiration Date Visits Requ ested Visits Authorized [id number] Closed 08/25/2021 08/25/2022 1 1 ransplant (Routine) - Closed Specialty Diagnoses / Procedures Referred By Contact Refer red To Contact Transplant Surgery / Diagnoses Cirrhosis Alcoholic (HCC) Abnormal Liver Function Test Ascites Pretransplant Recipient Evaluation Exam Preoperative Exam Warren Connor [facility] Transplant Lilian, M.P.H. [address] [place] [address] Referral ID Status Reason Start Date Expiration Date Visits Requ ested Visits Authorized [id number] Closed 08/25/2021 08/25/2022 1 1 ransplant (Routine) - Closed Specialty Diagnoses / Procedures Referred By Contact Refer red To Contact Transplant Surgery / Diagnoses Cirrhosis Alcoholic (HCC) Abnormal Liver Function Test Ascites Pretransplant Recipient Evaluation Exam Preoperative Exam Warren Connor [facility] Transplant Lilian, M.P.H. [address] [place] [address] Referral ID Status Reason Start Date Expiration Date Visits Requ ested Visits Authorized [id number] Closed 08/25/2021 08/25/2022 1 1 ransplant (Routine) - Closed Specialty Diagnoses / Procedures Referred By Contact Refer red To Contact Transplant Surgery / Diagnoses Cirrhosis Alcoholic (HCC) Abnormal Liver Function Test Ascites Pretransplant Recipient Evaluation Exam Preoperative Exam Warren Connor [facility] Transplant Lilian, M.P.H. [address] [place] [address] Referral ID Status Reason Start Date Expiration Date Visits Requ ested Visits Authorized [id number] Closed 08/25/2021 08/25/2022 1 1 Reason for Visit Reason Comments Referral - Liver Txp Phone screen Appointment Request (Routine) - Pending Review Specialty Diagnoses / Procedures Referred By Contact Refer red To Contact Transplant Diagnoses [facility] Procedures Referral ID Status Reason Start Date Expiration Date Visits V isits Requested Authorized [id number] Pending 08/21/2021 08/21/2022 1 1 Review Encounter Details Date Type Department Care Team Description 08/25/2021 Nurse Only Laney Canela Re ferral - Liver Txp [facility] M.A.N., R.N., (Phone screen) and Clinical Regeneration [facility] in [facility] [phone] [address] [facility] (Work) [place] [address] Social History Tobacco Use Types Packs/Day [...] do you attend anabaptist or Never 2021 methodist services? Do you belong to any clubs or No 07/17/2021 organizations such as anabaptist groups, unions, fraInneractive or athletic groups, or school groups? How [...] or the highest technical, or vocational p [facility] degree you have received? 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 Roge Schroeder Facility: [facility] Location: [facility] Utility Systems Repairer Operator: Kerry Naranjo NP /Dr. Jerome Facility: [facility] Location: [facility] Fax: Preferred lab: [facility] Lab Location: [place] Fax: Patient online messaging interest/discussed? 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 Received authorization for liver transplant referral. Information for Liver Transplant Candidates [id number] was reviewed with the patient via telephone call. Confirmed her interest in pursuing a liver transplant evaluation at [facility]. The patient verbalized understanding of the [...] Encounters Date Type Specialty Care Team Description [facility] Radiology [facility] 2 Encounter Tyrell Rodriguez, Lilian [facility] [place] [phone] [facility] Gastroenterology and [facility] 2 Encounter Hepatology Tyrell Rodriguez M.D. [address] [place] [phone] Surgery Gastroenterology and [facility] ESOPHAG OGASTRODUODENOSCOPY 2 Hepatology Tyrell Rodriguez, Lilian [address] [place] [phone] Telemedicine Transplant 2 Lab Laboratory Medicine Karin, 2 Adeline Gannon M.D., Ph.D. [address] [place] [phone] Lab Laboratory Medicine Charlesalexa, 2 Adeline Gannon M.D., Ph.D. [address] [place] [phone] Office Visit Transplant Karin, 2 Adeline Gannon M.D., Ph.D. [address] [place] [address] [phone] Office Visit Community Internal [facility], 2 Medicine Vernell Perez [address] [place] [phone] Appointment Radiology Matthew Jerome 2 Y, M.B.B.SSuma, Lilian [address] [place] [phone] Appointment Gastroenterology and Adrianne, 2 Hepatology Yue Burciaga M.D. [address] [place] [phone] Office Visit Gastroenterology and Matthew Jerome 2 Hepatology Jennifer M.B.B.SLilian Moise [address] [place] [phone] Appointment Radiology Matthew Jerome 2 Y M.B.B.SLilian Moise [address] [place] [phone] Scheduled Orders Name Type Priority Associated Diagnoses Order S chedule Short renal clearance: Procedures Routine Cirrhosis Alcoholi c Expected: 09/22/2021 Iothalamate (Renal (HCC) (Approximate), Studies Unit) Abnormal Liver Expires: 05/2022 Function Test Ascites Pretransplant Recipient Evaluation Exam Preoperative Exam ECG 12 Lead ECG Routine Cirrhosis Alcoholic Expected : 09/22/2021 (HCC) (Approximate), Abnormal Liver Expires: 0805/2022 Function Test Ascites Pretransplant Recipient Evaluation Exam Preoperative Exam Scheduled Procedures Name Priority Associated Diagnoses Date/Time ESOPHAGOGASTRODUODENOSCOPY Cirrhosis Alc oholic ([facility]) 02/10/2022 8:45 AM CDT Hypertension Portal (HCC) Scheduled Referrals Name Type Priority Associated Order Schedule Diagnoses Transplant - Outpatient Referral Routine Cirrhosis Alcoholic E xpected: Financial assessment ([facility]) 09/22/2021 consult (clinic) Abnormal Liver (Approxim ate), Function Test Expires: Ascites 12/01/2022 Pretransplant Recipient Evaluation Exam Preoperative Exam Transplant - Lung Outpatient Referral Routine Cirrhosis Alcoho lic Expected: transplant consult ([facility]) 09/22/2021 (clinic) Abnormal Liver (Approximate) , Function Test Expires: Ascites 12/01/2022 Pretransplant Recipient Evaluation Exam Preoperative Exam Transplant - Medical Outpatient Referral Routine Cirrhosis Alc oholic Expected: nutrition therapy ([facility]) 09/22/2021 consult (clinic) Abnormal Liver (Approxim ate), Function Test Expires: Ascites 12/01/2022 Pretransplant Recipient Evaluation Exam Preoperative Exam Transplant - Social Outpatient Referral Routine Cirrhosis Alco holic Expected: work consult ([facility]) 09/22/2021 (clinic) Abnormal Liver (Approximate) , Function Test Expires: Ascites 12/01/2022 Pretransplant Recipient Evaluation Exam Preoperative Exam Transplant - Surgery Outpatient Referral Routine Cirrhosis Alc oholic Expected: consult (clinic) ([facility]) 09/22/2021 Abnormal Liver (Approximate) , Function Test Expires: Ascites 12/01/2022 Pretransplant Recipient Evaluation Exam Preoperative Exam Pharmacy - Outpatient Referral Routine Cirrhosis Alcoholic E xpected: Medication therapy ([facility]) 09/22/2021 management - Abnormal Liver (Approximate) , transplant consult Function Test Expires: (clinic) Ascites 12/01/2022 Pretransplant Recipient Evaluation Exam Preoperative Exam Transplant - Liver Outpatient Referral Routine Cirrhosis Alcoh olic Expected: pre education visit ([facility]) 09/22/2021 (clinic) Abnormal Liver (Approximate) , Function Test Expires: Ascites 12/01/2022 Pretransplant Recipient Evaluation Exam Preoperative Exam Nicotine Dependence Outpatient Referral Routine Cirrhosis Alco holic Expected: - Counseling consult ([facility]) 10/01/2021 (clinic) Abnormal Liver (Approximate) , Function Test Expires: Ascites 12/01/2022 Pretransplant Recipient Evaluation Exam Preoperative Exam Preventive Medicine Outpatient Referral Routine Cirrhosis Alco holic Expected: - Preventive ([facility]) 10/01/2021 services consult Abnormal Liver (Approxim ate), (clinic) Function Test Expires: Ascites 12/01/2022 Pretransplant Recipient Evaluation Exam Preoperative Exam Transplant - Outpatient Referral Routine Cirrhosis Alcoholic E xpected: Psychiatry and ([facility]) 09/22/2021 Psychology consult Abnormal Liver (Approx imate), (clinic) Function Test Expires: Ascites 12/01/2022 Pretransplant Recipient Evaluation Exam Preoperative Exam Transplant - Outpatient Referral Routine Cirrhosis Alcoholic E xpected: Psychiatry and ([facility]) 09/22/2021 Psychology consult Abnormal Liver (Approx imate), (clinic) Function Test Expires: Ascites 12/01/2022 Pretransplant Recipient Evaluation Exam Preoperative Exam Transplant - Outpatient Referral Routine Cirrhosis Alcoholic E xpected: Psychiatry and ([facility]) 09/22/2021, Psychology consult Abnormal Liver Expires : [...] Mineral Density (BMD) analysis perf ormed on [email or web address] with serial number [id number]. ? FINDINGS: Left Hip: Femur Neck: BMD [...] including images and graphs, is available in [employer]. In the absence of other causes of [...] Mineral Density (BMD) analysis perf ormed on [email or web address] with serial number [id number]. FINDINGS: Left Hip: Femur Neck: BMD = [...] range for age. Warren Connor M.D., M.P.H. G DXA PROCEDURES Pulmonary Function Tests (10/07/2021 3:07 PM CDT) P athologist Signature FVC 4.04 L [facility] FVC% 111 % [place] [facility] FVCLLN 2.88 L [place] [facility] FEV1 3.62 L [facility] FEV1% 118 % [facility] [id number] 2.45 L [place] [facility] FEV1/FVC 90 % [place] FEV1/FVCLLN 73 % [place] [facility] FEF 25-75 5.30 L/sec [facility] FQO03-16% 154 % [facility] [id number] 2.20 L/sec [facility] SVC 4.19 L [facility] [place] [facility] RV 1.17 L [place] [facility] RVULN 2.33 L [place] [facility] [facility] TLC 5.36 L [facility] [facility] TLC% 111 % [facility] TLCLLN 3.47 L [place] [facility] RV/TLC 22 % [facility] RV/TLC% 72 % [facility] [facility] RV/TLCuln 44 % [facility] DLCO 16.63 ml/min/mmHg [facility] DLCO% 77 % [facility] DLCOlln 15.76 ml/min/mmHg [facility] DLCOc 20.09 ml/min/mmHg [facility] DLCOc% 94 % [facility] VA 5.32 L [facility] VA% 115 % [facility] VAlln 3.76 L [facility] Height 159.00 [facility] Weight in Kg 59.70 [facility] BMI 23.6 [facility] Specimen (Source) Anatomical Collection Method Collection Time Re ceived Time Location / / Volume Laterality 10/07/2021 2:32 PM CDT Impressions [facility] - 10/10/2021 8:25 AM C DT [...] Organization Address City/State/ZIP Code Phon e Number [facility] NA Ethyl Glucuronide Screen with Reflex, Urine (09/30/2021 8:23 AM CDT) [facility] Method Time Signature Ethyl Negative Cutoff: 09/30/2021 SDSC Glucuronide Scrn 500 ng/mL 11:12 AM CDT w/Reflex, U Comment: ----ADDITIONAL INFORMATION---- This test was developed and its performa nce characteristics determined by [facility] in a manner consistent with CLIA requirements. This test has not been cleared or approved by the [place] d and Drug Administration. Specimen Anatomical Collection Method Collection Time Receive d Time (Source) Location / / Volume Laterality Urine (Urine, 09/30/2021 8:23 AM 10/01/19 9:59 Midstream) CDT AM CDT Warren Connor M.D., M.P.H. LAB URINE ORDERABLES Performing Organization Address City/State/ZIP Code Phon e Number [facility] [address] [place], [place] [address] [facility] [place] [address] Laboratory Medicine and Pathology [address] [place] (ABNORMAL) Bacterial Culture, Aerobic + Susc, Urine (09/30/2021 8:23 AM CDT) Component Value Ref Test Analysis Performed At [facility] gist Range Method Time Signature Urine Culture STAPHYLOCOCCUS EPIDERMIDIS DTL 10,000-100,000 cfu/mL 2:00 PM CDT (A) Specimen Anatomical Collection Method Collection Time Receive d Time (Source) Location / / Volume Laterality Urine (Urine, 09/30/2021 8:23 AM 10/01/19 8:57 Midstream) CDT AM CDT Comment: Specimen [...] City/State/ZIP Code Phon e Number [facility] - [address] [place], [place] [address] [facility] [place] [address] [facility] [facility] [place] [address] (ABNORMAL) Drug Abuse Survey with Confirmation, Panel 9, Urine (09/30/2021 8:23 AM CDT) Component Value Ref Test Analysis Performed At [facility] gist Range Method Time Signature Alcohol Negative Cutoff: [...] Its performance characteristics were determi foreign by [facility] in a manner consistent with CLIA requirements. This test has not been cleared or approved by the U.S. Food and Drug Administration . Specimen Anatomical Collection Method Collection Time Receive d Time (Source) Location / / Volume Laterality Urine (Urine, 09/30/2021 8:23 AM 10/01/19 22 Midstream) CDT 10:00 AM CDT Warren Connor M.D., M.P.H. LAB URINE ORDERABLES Performing Organization Address City/[facility]/ZIP Code Phon e Number [facility] [address] [place], [place] [address] [facility] [place] [address] Laboratory Medicine and Pathology [address] [...] City/State/ZIP Code Phon e Number [facility] - [address] [place], [place] [address] [facility] [place] [address] [facility] [address] Transplant ABO Confirmation [...] BANK TEST OR DERABLES Performing Organization Address City/[facility]/ZIP [facility] Phon e Number [facility] - 200 [place], [place] [address] [facility] [place] [address] [facility] 200 [facility] (ABNORMAL) Hemoglobin A1c (09/30/2021 7:39 AM CDT) [...] M.P.H. LAB BLOOD ADD-ON Performing Organization Address City/[facility]/ZIP Code Phon e Number [facility] - [address] [place], [place] [address] [facility] [place] [address] [facility] 200 [facility] (ABNORMAL) CBC no call back, reflex T/S [...] City/State/ZIP Code Phon e Number [facility] - [address] [place], [place] [address] [facility] [place] [address] [facility] [address] [facility] (ABNORMAL) Pepvi-4-Jeobxhwmydu Proteotype S/Z by LC-MS/MS (09/30/2021 7:38 AM CDT) athologist Signature Arzgw-8-Ydaxgq 211 (H) 100 - 190 10/01/2021 SDSC ypsin, S mg/dL 9:47 AM CDT Comment: ----ADDITIONAL INFORMATION---- Method: Nephelometry Interpretation S Mutation: Negative 10/02/2021 3:3 2 PM CDT [facility] Z Mutation: Negative Results most consistent with MM phenotype. Comment: ----ADDITIONAL INFORMATION---- This test was developed and its performa nce characteristics determined by [facility] in a manner consistent with CLIA requirements. [...] City/State/ZIP Code Phon e Number [facility] [address] [place], [place] [address] [facility] [place] [address] Laboratory Medicine and Pathology [address] [place] Phosphatidylethanol (Peth), whole blood- Sent Out Lab (09/30/2021 7:38 AM CDT) Component Value Ref Range Test Analysis Performed Pathologis t Method Time At Signature Phosphatidylethanol NEGATIVE NEGATIVE 10/03/2021 MTI (PEth) ng/mL 10:27 PM CDT Comment: Analyzed compound: PEth 16:0/18:1. ? 6-lopufzfph-1-anvsrz-wz-svnwztf-3 -phosphoethanol. ? Analysis performed by Liquid Chromatogra [...] LAB BLOOD NON ADD-ON Performing Organization Address City/[facility] Phon e Number [employer] [address] [place] [address] 2 [facility] [employer] [place]. [place], [place] [address] [place] [address] hCG (Human Chorionic Gonadotropin), Quantitative, (09/30/2021 7:38 AM CDT) athologist Signature HCG, <0.5 <5 IU/L 09/30/2021 DT Quantitative, 10:47 AM CDT , S Specimen Anatomical Collection Method Collection Time Receive d Time (Source) Location / / Volume Laterality Blood (Blood, 09/30/2021 7:38 AM 10/01/19 22 8:07 Venous) CDT AM CDT Warren Connor M.D., M.P.H. LAB BLOOD ADD-ON Performing Organization Address City/[facility] Phon e Number [facility] - [address] [place], [place] [address] [place] [address] [facility] 200 [facility] (ABNORMAL) AFP (Alpha-Fetoprotein), Tumor Marker (09/30/2021 7:38 AM CDT) athologist Signature Alpha-Fetoprote 14 (H) ng/mL 09/30/2021 [facility] [facility] in, Tumor 4:01 PM CDT Marker, S Comment: ----REFERENCE VALUE---- <8.4 Reference values are for non- subjects only; production of AFP elevates values in women. ----ADDITIONAL INFORMATION---- In this Richie Raleigh assay AFP concen trations are <8.4 ng/mL [...] method is an immunoenzymatic assay manufactured by [facility]. and is tested on the Sportholdel DxI 800. Values obtained with different assay [...] City/State/ZIP Code Phon e Number [facility] [address] [place], [place] [address] [place] [address] [place] [address] Laboratory Medicine and Pathology [address] CHAPPELL Vitamin E Level (09/30/2021 7:38 AM CDT) athologist Signature A-Tocopherol, 6.3 5.5 - 17.0 10/01/2021 [facility] Vitamin E mg/L 1:44 PM CDT Comment: ----ADDITIONAL INFORMATION---- This test was developed and its performa nce characteristics determined by [facility] in a manner consistent with CLIA requirements. This test has not been cleared or approved by the U.[place] Meg[place] d and Drug Administration. Specimen Anatomical Collection Method Collection Time Receive d Time (Source) Location / / Volume Laterality Blood (Blood, 09/30/2021 7:38 AM 10/01/19 22 Venous) CDT 11:15 AM CDT Warren Connor M.D., M.P.H. LAB BLOOD NON ADD-ON Performing Organization Address City/[facility] Phon e Number [facility] [address] [place] [address] [address] [place] [address] Laboratory Medicine and Pathology [address] [place] [address] Dr. CHAPPELL 25-Hydroxyvitamin D2 and D3 (09/30/2021 7:38 AM CDT) athologist Signature 25-Hydroxy D2 20 ng/mL 09/30/2021 [facility] 11:30 PM CDT 25-Hydroxy D3 <2.0 ng/mL 09/30/2021 [facility] 11:30 PM CDT 25-Hydroxy D 20 ng/mL 09/30/2021 [facility] Total 11:30 PM CDT Comment: ----REFERENCE VALUE---- 25-HYDROXY D TOTAL (D2+D3) Optimum level s in the healthy population are 20-50, patients with bone disease may benefit from higher levels within this r vinh. ----ADDITIONAL INFORMATION---- This test was developed and its performa nce characteristics determined by [facility] in a manner consistent with CLIA requirements. This test has not been cleared or approved by the U.[place]. [place] d and Drug Administration. Specimen Anatomical Collection Method Collection Time Receive d Time (Source) Location / / Volume Laterality Blood (Blood, 09/30/2021 7:38 AM 10/01/19 22 Venous) CDT 10:21 AM CDT Warren Connor M.D., M.P.H. LAB BLOOD ADD-ON Performing Organization Address City/[facility] Phon e Number [facility] [address] [place], [place] [address] SUPPORT [facility] [place] [address] Laboratory Medicine and Pathology [address] [place] [address] Dr. CHAPPELL (ABNORMAL) Vitamin A Level (09/30/2021 7:38 AM CDT) P athologist Signature Vitamin A 9.5 (L) 32.5 - 78.0 10/01/2021 [facility] mcg/dL 11:30 AM CDT Comment: In this sample, the retinol (vitamin A) level indicates a severe deficiency. ----ADDITIONAL INFORMATION---- This test was developed and its performa nce characteristics determined by [facility] in a manner consistent with CLIA requirements. [...] City/State/ZIP Code Phon e Number [facility] [address] [place], [place] [address] SUPPORT CENTER [facility] [place] [address] Laboratory Medicine and Pathology [address] [...] 10/10/2021 [facility] Molecular Applicable 10:12 AM CDT EVR334 - 1 DR53 Not 10/10/2021 [facility] Equivalent Applicable 10:12 AM CDT VGV684 - 2 DR51 Not 10/10/2021 [facility] Equivalent Applicable 10:12 AM CDT VBF187 - 1 DRB4*01:03 Not 10/10/2021 [facility] Molecular Applicable 10:12 AM CDT RRF683 - 2 DRB5*02:02 Not 10/10/2021 [facility] Molecular [...] its performa nce characteristics determined by [facility] in a manner co nsistent with CLIA requirements. This test has not been norah ared or approved by the U.S. Food and Drug Administration. CLIA: [id number] ??CLIA [employer] Caser: THAIS CAR MD,PhD Specimen Anatomical Collection Method Collection Time Receive d Time (Source) Location / / Volume Laterality Blood (Blood, 09/30/2021 7:38 AM 10/01/19 22 8:12 Venous) CDT AM CDT Warren Connor M.D., M.P.H. LAB HLA ORDERABLES Performing Organization Address City/State/ZIP Code Phon e Number [facility] - [address] [place], [place] [address] [facility] [place] [place] [address] Laboratories-[facility] 200 [facility] HLA Class I Typing by Low Resolution, Recipient (09/30/2021 7:38 AM CDT) [facility] gist Method Time Signature A - [...] its performa nce characteristics determined by [facility] in a manner co nsistent with CLIA requirements. This test has not been norah ared or approved by the U.S. Food and Drug Administration. CLIA: [id number] ??CLIA [employer] Caser: THAIS CAR MD,PhD Specimen Anatomical Collection Method Collection Time Receive d Time (Source) Location / / Volume Laterality Blood (Blood, 09/30/2021 7:38 AM 10/01/19 22 8:12 Venous) CDT AM CDT Warren Connor M.D., M.P.H. LAB HLA ORDERABLES Performing Organization Address City/[facility]/ZIP Code Phon e Number [facility] - 200 [place], [place] [address] [facility] [place] [place] [place] [address] Laboratories-[address] Folate (09/30/2021 7:38 AM CDT) P athologist Signature Folate, S >20.0 >=4.0 mcg/L 09/30/2021 9:31 DTL AM CDT Specimen Anatomical Collection Method Collection Time Receive d Time (Source) Location / / Volume Laterality Blood (Blood, 09/30/2021 7:38 AM 10/01/19 22 8:07 Venous) CDT AM CDT Warren Connor M.D., M.P.H. LAB BLOOD ADD-ON Performing Organization Address City/[facility]/ZIP Code Phon e Number [facility] - 200 [place], [place] [address] [facility] [place] [address] (ABNORMAL) Parathyroid Hormone (PTH) (09/30/2021 7:38 [...] M.P.H. LAB BLOOD ADD-ON Performing Organization Address City/[facility]/ZIP Code Phon e Number [facility] - 200 [place], [place] [address] [place] [address] T4 (Thyroxine), Free (09/30/2021 7:38 AM CDT) P athologist Signature T4 (Thyroxine), 1.3 0.9 - 1.7 09/30/2021 D[facility] Free, S ng/dL 10:47 AM CDT Specimen Anatomical Collection Method Collection Time Receive d Time (Source) Location / / Volume Laterality Blood (Blood, 09/30/2021 7:38 AM 10/01/19 22 8:07 Venous) CDT AM CDT Warren Connor M.D., M.P.H. LAB BLOOD ADD-ON Performing Organization Address City/[facility] Phon e Number [facility] - [address] (ABNORMAL) S-TSH (Thyroid-Stimulating Hormone - Sensitive) (09/30/2021 7:38 AM CDT) athologist Signature TSH, Sensitive 5.9 (H) 0.3 - 4.2 09/30/2021 DT mIU/L 9:15 AM CDT Specimen Anatomical Collection Method Collection Time Receive d Time (Source) Location / / Volume Laterality Blood (Blood, 09/30/2021 7:38 AM 10/01/19 22 8:07 Venous) CDT AM CDT Warren Connor M.D., M.P.H. LAB BLOOD ADD-ON Performing Organization Address City/[facility]/ZIP [facility] Phon e Number [facility] - [address] Type and Screen (with reflex Antibody ID) (09/30/2021 7:38 AM CDT) [facility] Method Time Signature ABORh B [...] City/State/ZIP Code Phon e Number [facility] - [address] [place], [place] [address] [facility] [place] [address] Laboratories-[facility] [address] QuantiFERON-Tb Gold Plus, [...] Diagnosis of Tuberculosis in Adults and Children [Chidiinsbettye DM et. al. Clin. Infect. Dis. 2017;64(2):111-115]. [...] 9:36 Venous) CDT AM CDT Narrative [facility] - 10/01/2021 10:03 AM CDT Specimen Information: Specimen ID: [id number] Specimen Type: Blood Specimen Collection Start Date: 10/01/19 ??7:38 AM Specimen Received Date: 09/30/2021 ??9:3 6 AM Specimen ID: [id number] Specimen Type: Blood Specimen Collection Start Date: 10/01/19 ??7:38 AM Specimen Received Date: 09/30/2021 ??9:3 6 AM Specimen ID: [id number] Specimen Type: Blood Specimen Collection Start Date: 10/01/19 ??7:38 AM Specimen Received Date: 09/30/2021 ??9:3 6 AM Specimen ID: [id number] Specimen Type: Blood Specimen Collection Start Date: 10/01/19 ??7:38 AM Specimen Received Date: 09/30/2021 ??9:3 6 AM Warren Connor M.D., M.P.H. LAB MICROBIOLOGY - BLO OD ORDERABLES Performing Organization Address City/State/ZIP Code Phon e Number [facility] [address] [place], [place] [address] [place] [address] Laboratory Medicine and Pathology [address] [place] [address] Dr. CHAPPELL HCV RNA Detect / Quant, Serum (09/30/2021 7:38 AM CDT) [facility] Method Time Signature HCV RNA Undetected Undetected 10/01/2021 [facility] Detect/Quant, IU/mL 12:31 PM S CDT Comment: Result in log IU/mL is Undetected. ----ADDITIONAL INFORMATION---- The quantification range of this assay i s 15 to 100,000,000 IU/mL (1.18 log to 8.00 log IU/mL). Testing was performe d using the john HCV test ([employer] with the john Plexisoft0 System. Specimen Anatomical Collection Method Collection Time Receive d Time (Source) Location / / Volume Laterality Blood (Blood, 09/30/2021 7:38 AM 10/01/19 22 Venous) CDT 10:15 AM CDT Warren Connor M.D., M.P.H. LAB MICROBIOLOGY - BLO OD ORDERABLES Performing Organization Address City/[facility]/ZIP Code Phon e Number [facility] [address] [place], [place] [address] SUPPORT [facility] [place] [address] Laboratory Medicine and Pathology [address] [place] [address] Dr. CHAPPELL HCV Ab Scrn w/Reflex to HCV PCR, Serum (09/30/2021 7:38 AM CDT) athologist Signature HCV Ab Screen, Negative Negative 09/30/2021 [facility] S 2:11 PM CDT Comment: Zqsfrb-pg-btfvmo ratio is <1.00 . Specimen Anatomical Collection Method Collection Time Receive d Time (Source) Location / / Volume Laterality Blood (Blood, 09/30/2021 7:38 AM 10/01/19 22 Venous) CDT 10:15 AM CDT Warren Connor M.D., M.P.H. LAB MICROBIOLOGY - BLO OD ORDERABLES Performing Organization Address City/[facility]/ZIP Code Phon e Number [address] [place] [address] [facility] [place] [address] Laboratory Medicine and Pathology [address] [place] [address] Dr. CHAPPELL HBc Total Ab Scrn, S (09/30/2021 7:38 AM CDT) athologist Signature HBc Total Ab Negative Negative 09/30/2021 [facility] Scrn, S 2:11 PM CDT Specimen Anatomical Collection Method Collection Time Receive d Time (Source) Location / / Volume Laterality Blood (Blood, 09/30/2021 7:38 AM 10/01/19 22 Venous) CDT 10:15 AM CDT Warren Connor M.D., M.P.H. LAB MICROBIOLOGY - BLO OD ORDERABLES Performing Organization Address City/[facility]/ZIP Code Phon e Number [place] [id number] [place], [place] [address] SU[facility] [place] [address] Laboratory Medicine and Pathology [address] [place] [address] Dr. CHAPPELL HBs Antibody Scrn, S (09/30/2021 7:38 AM CDT) athologist Signature HBs Antibody Positive 09/30/2021 [facility] Scrn, S 2:20 PM CDT Comment: Patient is considered to be immune to in fection with HBV. ----REFERENCE VALUE---- Unvaccinated: Negative Vaccinated: Positive HBs Antibody, Quantitative, S 15.2 mIU/mL 09/30/2021 2:20 PM CDT [facility] Comment: ----REFERENCE VALUE---- Unvaccinated: <5.0 Vaccinated: >=12.0 Specimen Anatomical Collection Method Collection Time Receive d Time (Source) Location / / Volume Laterality Blood (Blood, 09/30/2021 7:38 AM 10/01/19 22 Venous) CDT 10:15 AM CDT Warren Connor M.D., M.P.H. LAB MICROBIOLOGY - BLO OD ORDERABLES Performing Organization Address City/[facility] Phon e Number [address] [place] [address] [place] [address] Laboratory Medicine and Pathology [address] [place] [address] Dr. CHAPPELL Hepatitis A IgM Ab, Serum (09/30/2021 7:38 AM CDT) athologist Signature Hepatitis A Negative Negative 09/30/2021 [facility] IgM Ab, S 1:17 PM CDT [...] - BLO OD ORDERABLES Performing Organization Address [facility] Phon e Number [address] [place] [address] 05 [facility] [place] [address] Laboratory Medicine and Pathology [address] [place] [address] Dr. CHAPPELL Hepatitis A IgG Ab, Serum (09/30/2021 7:38 AM CDT) athologist [facility] Hepatitis A Negative 09/30/2021 [facility] IgG Ab, S 1:17 PM CDT [...] - BLO OD ORDERABLES Performing Organization Address [facility] Phon e Number [address] [place] [address] [place] [address] Laboratory Medicine and Pathology [address] [place] [address] Dr. CHAPPELL HIV-1/-2 Ag and Ab Screen, Plasma (09/30/2021 7:38 AM CDT) [facility] HIV-1/-2 Ag Negative Negative 09/30/2021 [facility] and Ab Screen, 1:16 PM CDT [...] - BLO OD ORDERABLES Performing Organization Address [facility] Phon e Number [address] [place]AP[place] [address] [place] [address] Laboratory Medicine and Pathology [address] [place] [address] Dr. CHAPPELL Phosphorus Inorganic (09/30/2021 7:38 AM [...] City/State/ZIP Code Phon e Number [facility] - 200 [place], [place] [address] [facility] [place] [address] [facility] 200 [facility] Lipid Panel (09/30/2021 7:38 AM CDT) athologist [...] M.P.H. LAB BLOOD ADD-ON Performing Organization Address City/[facility] Phon e Number [facility] - [address] [place], [place] [address] (ABNORMAL) GGT (Gamma-Glutamyltransferase) (09/30/2021 7:38 AM CDT) [facility] Method Time Signature Gamma 52 (H) 5 - 36 09/30/2021 [facility]TL Glutamyltransferase U/L 10:47 AM (GGT), S CDT Specimen Anatomical Collection Method Collection Time Receive d Time (Source) Location / / Volume Laterality Blood (Blood, 09/30/2021 7:38 AM 10/01/19 8:07 Venous) CDT AM CDT Warren Connor M.D., M.P.H. LAB BLOOD ADD-ON Performing Organization Address City/[facility] Phon e Number [facility] - 200 [place], [place] [address] (ABNORMAL) Hepatic Function Panel (09/30/2021 7:38 AM CDT) [facility] Method Time Signature Bilirubin, Total, S 12.1 [...] City/State/ZIP Code Phon e Number [facility] - [address] [place], [place] [address] [facility] [place] [address] [facility] [address] (ABNORMAL) Basic Metabolic Panel (09/30/2021 7:38 AM [...] 09/30/2021 [facility] Black/ mL/min/BSA 10:29 AM CDT [place] Comment: ----ADDITIONAL INFORMATION---- Estimated GFR calculated using [...] M.P.H. LAB BLOOD ADD-ON Performing Organization Address City/[facility] Phon e Number [facility] - [address] [place], [place] [address] [facility] [place] [address] [facility] 200 [facility] Rubella Antibodies, IgG (09/30/2021 7:37 AM CDT) athologist Signature Rubella Ab, Positive 09/30/2021 [facility] IgG, S 11:25 AM CDT Comment: Results suggest response to immunization or prior exposure to the virus. ----REFERENCE VALUE---- Vaccinated: Positive (>=1.0 AI) Unvaccinated: Negative (<=0.7 AI) Rubella IgG Antibody Index 5.9 09/30/2021 11 :25 AM CDT [facility] Specimen Anatomical Collection Method Collection Time Receive d Time (Source) Location / / Volume Laterality Blood (Blood, 09/30/2021 7:37 AM 10/01/19 22 Venous) CDT 10:37 AM CDT Warren Connor M.D., M.P.H. LAB MICROBIOLOGY - BLO OD ORDERABLES Performing Organization Address City/[facility] Phon e Number [facility] [address] [place] [address] [facility] [place] [address] Laboratory Medicine and Pathology [address] CHAP[place]LL Measles (Rubeola) Ab, IgG (09/30/2021 7:37 AM CDT) athologist Signature Measles Positive 09/30/2021 [facility] (Rubeola) Ab, 11:25 AM CDT IgG, S Comment: Results suggest response to immunization or prior exposure to the virus. ----REFERENCE VALUE---- Vaccinated: Positive (>=1.1 AI) Unvaccinated: Negative (<=0.8 AI) Measles IgG Antibody Index >8.0 09/30/2021 11 :25 AM CDT [facility] Specimen Anatomical Collection Method Collection Time Receive d Time (Source) Location / / Volume Laterality Blood (Blood, 09/30/2021 7:37 AM 10/01/19 22 Venous) CDT 10:37 AM CDT Warren Connor M.D., M.P.H. LAB MICROBIOLOGY - BLO OD ORDERABLES Performing Organization Address City/[facility] Phon e Number [facility] [address] [place], [place] [address] SUPPORT [facility] [place] [address] Laboratory Medicine and Pathology [address] [place] [address] Dr. CHAPPELL (ABNORMAL) Zinc (09/30/2021 7:37 AM CDT) P athologist Signature Zinc, S 0.39 (L) 0.66 - 1.10 09/30/2021 [facility] mcg/mL 12:56 PM CDT Comment: ----ADDITIONAL INFORMATION---- This test was developed and its performa nce characteristics determined by [facility] in a manner consistent with CLIA requirements. This test has not been cleared or approved by the U.[place]. Meg[place] d and Drug Administration. Specimen Anatomical Collection Method Collection Time Receive d Time (Source) Location / / Volume Laterality Blood (Blood, 09/30/2021 7:37 AM 10/01/19 22 Venous) CDT 10:12 AM CDT Warren Connor M.D., M.P.H. LAB BLOOD NON ADD-ON Performing Organization Address City/[facility] Phon e Number [facility] [address] [place], [place] [address] SUPPORT CENTER [facility] [address] Laboratory Medicine and Pathology [address] [place] [address] Dr. CHAPPELL Toxoplasma gondii Antibody, IgG (09/30/2021 [...] - BLO OD ORDERABLES Performing Organization Address [facility] Phon e Number [facility] [address] [place], [place] [address] [facility] [place] [address] Laboratory Medicine and Pathology [address] [place] [address] Dr. CHAPPELL Mumps Ab, IgG (09/30/2021 7:37 AM CDT) athologist Signature Mumps Ab, IgG, Positive 09/30/2021 [facility] S 11:25 AM CDT Comment: Results suggest response to immunization or prior exposure to the virus. ----REFERENCE VALUE---- Vaccinated: Positive (>=1.1 AI) Unvaccinated: Negative (<=0.8 AI) Mumps IgG Antibody Index 6.1 09/30/2021 11:2 5 AM CDT [facility] Specimen Anatomical Collection Method Collection Time Receive d Time (Source) Location / / Volume Laterality Blood (Blood, 09/30/2021 7:37 AM 10/01/19 22 Venous) CDT 10:37 AM CDT Warren Connor M.D., M.P.H. LAB MICROBIOLOGY - BLO OD ORDERABLES Performing Organization Address City/[facility] Phon e Number [facility] [address] [place], [place] [address] [facility] [place] [address] Laboratory Medicine and Pathology [address] [place] [address] Dr. CHAPPELL Syphilis IgG w/ Reflex, EIA, S (09/30/2021 7:37 AM CDT) Patholo gist Method Time Signature Syphilis IgG Nonreactive Nonreactive 10/01/2021 [facility] w/ Reflex, 3:00 PM CDT EIA, S Comment: No serologic evidence of infection with T. pallidum (syphilis). ??Repeat testing may be cons idered in patients with suspected acute or primary syphilis in 2-4 weeks. For additional information on interpreta tion of the syphilis reverse algorithm and resul ts, see: [email or web address] Specimen Anatomical Collection Method Collection Time Receive d Time (Source) Location / / Volume Laterality Blood (Blood, 09/30/2021 7:37 AM 10/01/19 22 Venous) CDT 10:12 AM CDT Warren Connor M.D., M.P.H. LAB MICROBIOLOGY - BLO OD ORDERABLES Performing Organization Address [facility] Code Phon e Number [facility] [address] [place], [place] [address] [place], [place] [address]t. [place] [address] Laboratory Medicine and Pathology [address] [place] [address] Dr. CHAPPELL EBV Ab Profile (09/30/2021 7:37 AM CDT) [facility] Method Time Signature EBV VCA IgM Ab, S Negative Negative 09/30/2021 [facility] 11:25 AM CDT EBV VCA IgG Ab, S Positive Negative 09/30/2021 [facility] 11:25 AM CDT EBNA Ab, S Positive Negative 09/30/2021 [facility] 11:25 AM CDT Interpretation SEE COMMENT 09/30/2021 [facility] 11:25 AM CDT Comment: Results suggest [...] - BLO OD ORDERABLES Performing Organization Address City/[facility]/ZIP Code Phon e Number [address] [place] [place] [address] Laboratory Medicine and Pathology [address] [place] [address] Dr. CHAPPELL Varicella-Zoster Ab, IgM and IgG (09/30/2021 7:37 AM CDT) athologist Signature Varicella-Zost Positive 09/30/2021 [facility] er Ab, IgG, S 11:25 AM CDT Comment: Results suggest response to immunization or prior exposure to the virus. ----REFERENCE VALUE---- Vaccinated: Positive (>=1.1 AI) Unvaccinated: Negative (<=0.8 AI) Varicella IgG Antibody Index 3.9 09/30/2021 11:25 AM CDT [facility] Varicella-Zoster Ab, IgM, S Negative Negative 10/01/2021 2 :23 PM CDT [facility] Specimen Anatomical Collection Method Collection Time Receive d Time (Source) Location / / Volume Laterality Blood (Blood, 09/30/2021 7:37 AM 10/01/19 22 Venous) CDT 10:37 AM CDT Warren Connor M.D., M.P.H. LAB MICROBIOLOGY - BLO OD ORDERABLES Performing Organization Address City/[facility]/ZIP Code Phon e Number [address] [place] [address] Laboratory Medicine and Pathology [address] [place] [address] Dr. CHAPPELL HSV Types 1 and 2 Ab, IgG (09/30/2021 7:37 AM CDT) athologist Signature HSV Type 1 Ab, Negative Negative 09/30/2021 [facility] IgG, S 11:25 AM CDT HSV Type 2 Ab, Negative Negative 09/30/2021 [facility] IgG, S 11:25 AM CDT Specimen Anatomical Collection Method Collection Time Receive d Time (Source) Location / / Volume Laterality Blood (Blood, 09/30/2021 7:37 AM 10/01/19 22 Venous) CDT 10:37 AM CDT Warren Connor M.D., M.P.H. LAB MICROBIOLOGY - BLO OD ORDERABLES Performing Organization Address City/[facility]/ZIP Code Phon e Number [address] [place], [place] [address] [facility] [place] [address] Laboratory Medicine and Pathology [address] [place] [address] Dr. CHAPPELL Cytomegalovirus Ab, IgM and IgG (09/30/2021 7:37 AM CDT) [facility] Method Time Signature Cytomegalovirus Ab, Negative Negative 09/30/2021 [facility] IgM, S 11:25 AM CDT Cytomegalovirus Ab, Negative Negative 09/30/2021 [facility] IgG, S 11:25 AM CDT Specimen Anatomical Collection Method Collection Time Receive d Time (Source) Location / / Volume Laterality Blood (Blood, 09/30/2021 7:37 AM 10/01/19 Venous) CDT 10:37 AM CDT Warren Connor M.D., M.P.H. LAB MICROBIOLOGY - BLO OD ORDERABLES Performing Organization Address [facility] Phon e Number [address] CHAPPELL [place] [address] 05 SUPPORT [facility] [place] [address] Laboratory Medicine and Pathology [address] [place] [address] Dr. CHAPPELL (ABNORMAL) Prothrombin Time (PT) (09/30/2021 7:37 AM CDT) [facility] Method Time Signature Prothrombin 28.8 (H) 9.4 [...] M.P.H. LAB BLOOD ADD-ON Performing Organization Address City/[facility] Phon e Number [facility] - [address] [place], [place] [address] [facility] [place] [address] Laboratories-[facility] [place] [address] documented in this encounter [...] (HCC) documented in this encounter Care Teams Bank Representative Relationship Specialty Start Date End Date Elsewhere, Pcp PCP - General Family Medicine 03/10/20 11/30/21 [facility] [place] lab 08/25/21 Ervin Schroeder MD Referring Provider Family Medicine 03/24/[address] [place] [address] documented as of this encounter
--- OUTSIDE RECORDS SUMMARY | 2022-02-04 23:18 | XMS_ITS | Encounter Summary ---
:1990 Author Organization [facility] Address [address] [place] [address] Care Team Providers Name Role Phone Elsewhere, Pcp Primary Care Provider Unavailable Encounter Details Date Type Department Care Team Description 08/27/2021 Orders Only Department of Mousa, Matthew Y, Cirrhosis [facility] Gastroenterology in Joshua Santillan ([facility]) (Primary Dx) [place], [place] [address] [facility] 10[address] [place] [phone] Social History Tobacco Use Types Packs/Day Years [...] do you attend sabianism or Never 2021 worship services? 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 encounter Plan of Treatment Upcoming Encounters Date Type Specialty Care Team Description Hospital Radiology Matthew Jerome 2 Encounter Tyrell Rodriguez, Lilian [address] [place] [phone] Hospital Gastroenterology and Matthew Jerome 2 Encounter Hepatology Tyrell Rodriguez, Lilian [address] [place] [phone] Surgery Gastroenterology and Matthew Jerome ESOPHAG OGASTRODUODENOSCOPY 2 Hepatology Tyrell Rodriguez, Lilian 1025 [place] [phone] Telemedicine Transplant 2 Lab Laboratory Medicine Karin, 2 Adeline Gannon M.D., Ph.D. [address] [place] [phone] Lab Laboratory Medicine Karin 2 Adeline Gannon M.D., Ph.D. [address] [place] [phone] Office Visit Transplant Karin, 2 Adeline Gannon M.D., Ph.D. [address] [place] [phone] Office Visit [facility], 2 Medicine Vernell Perez [address] [place] [phone] Appointment Radiology Matthew Jerome 2 Y M.B.B.SSuma, Lilian [address] [place] [phone] Appointment Gastroenterology and Adrianne 2 Hepatology Yue Burciaga M.D. [address] [place] [phone] Office Visit Gastroenterology and Matthew Jerome 2 Hepatology Jennifer M.B.B.SSuma, Lilian [address] [place] [phone] Appointment Radiology Matthew Jerome 2 Y M.B.B.SLilian Moise [address] [place] [phone] Scheduled Procedures Name Priority Associated Diagnoses Date/Time ESOPHAGOGASTRODUODENOSCOPY Cirrhosis Alc oholic (HCC) 02/10/2022 8:45 AM CDT Hypertension Portal (HCC) documented as of this encounter Visit Diagnoses Diagnosis Cirrhosis Alcoholic (HCC) - Primary Cirrhosis Alcoholic (HCC) Hypertension Portal (HCC) documented in this encounter Care Teams Hand Inspector Relationship Specialty Start Date End Date Elsewhere, Pcp PCP - General Family Medicine 03/10/20 11/30/21 [facility] 08/25/21 Ervin Schroeder MD Referring Provider Family Medicine 03/24/[address] [place] [phone] documented as of this encounter
--- OUTSIDE RECORDS SUMMARY | 2022-02-04 23:18 | XMS_ITS | Encounter Summary ---
:1990 Author Organization [facility] Address [address] [place] [address] Care Team Providers Name Role Phone Elsewhere, Pcp Primary Care Provider Unavailable Reason for Referral Appointment Request (Routine) - Closed Specialty Diagnoses / Procedures Referred By Contact Refer red To Contact Diagnoses Cirrhosis Alcoholic (HCC) Ascites Anemia Macrocytic Thrombocytopenia (HCC) Deficiency Coagulation Acquired (HCC) Kerry Naranjo APRN, Procedures Prothrombin Time (PT) M.S.N., R.N. [address] [place] [phone] Referral ID Status Reason Start Date Expiration Date Visits Requ ested Visits Authorized [id number] Closed 07/07/2021 07/07/2022 1 Reason for Visit Appointment Request (Routine) - Closed Specialty Diagnoses / Procedures Referred By Contact Refer red To Contact Diagnoses Cirrhosis Alcoholic (HCC) Ascites Anemia Macrocytic Thrombocytopenia (HCC) Deficiency Coagulation Acquired (HCC) Kerry Naranjo APRN, Procedures Prothrombin Time (PT) M.S.N., R.N. [address] [place] [phone] Referral ID Status Reason Start Date Expiration Date Visits Requ ested Visits Authorized [id number] Closed 07/07/2021 07/07/2022 1 Encounter Details Date Type Department Care Team Description 08/28/2021 Hospital Encounter Department of Kerry Naranjo Cirrhos is Alcoholic (HCC); Laboratory Medicine S, ELECTRONICS RECYCLER, Ascites; in Destiny Mejía, R.N. Anemia Macrocytic; [place] 1025 [facility] Thrombocytopenia (HCC); [address] [place], [place] Deficiency Coagulation Acqui red ([facility]) [place] [phone] Social History Tobacco Use Types Packs/Day Years [...] do you attend religion or Never 2021 mu-ism services? 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 [address] [place] [phone] Hospital Gastroenterology and [facility] 2 Encounter Hepatology Vik RodriguezBGraeme, MJules [address] [place] [phone] Surgery Gastroenterology and [facility] ESOPHAG OGASTRODUODENOSCOPY 2 Hepatology Tyrell Rodriguez, Lilian [address] [place] [phone] Telemedicine Transplant 2 Lab Laboratory Medicine Karin, 2 Adeline Gannon M.D., Ph.D. [address] [place] [phone] Lab Laboratory Medicine Karin, 2 Adeline Gannon M.D., Ph.D. [address] [place] [phone] Office Visit Transplant Karin, 2 Adeline Gannon M.D., Ph.D. [address] [place] [phone] Office Visit Community Internal [facility], 2 Medicine Vernell Perez [address] [place] [phone] Appointment Radiology [facility] 2 Vik RodriguezBGraeme, MSumaDSuma [address] [place] [phone] Appointment Gastroenterology and Adrianne, 2 Hepatology Yue Burciaga M.D. [address] [place] [phone] Office Visit Gastroenterology and Matthew Jerome 2 Hepatology Tyrell Rodriguez M.D. [address] [place] [phone] Appointment Radiology LuisMatthew abdul 2 Tyrell Rodriguez M.D. [address] [place] [phone] Scheduled Procedures Name Priority Associated [...] Prothrombin Time (PT) (08/28/2021 5:01 PM CDT) [facility] gist Method Time Signature Prothrombin 25.9 [...] 08/29/19 22 6:01 Venous) CDT PM CDT Kerry Naranjo APRN, M.S.N., R.N. LAB BLOOD ADD-ON Performing Organization Address City/State/ZIP Code Phon e Number [facility]- [address] [place] [address] [facility] [place] [address] System in [place] [address]199 documented in this encounter Visit Diagnoses Diagnosis Cirrhosis Alcoholic (HCC) Ascites Anemia Macrocytic Thrombocytopenia (HCC) Deficiency Coagulation Acquired (HCC) Cirrhosis Alcoholic (HCC) Hypertension Portal (HCC) documented in this encounter Care Teams Gear Room Keeper Relationship Specialty Start Date End Date Elsewhere, Pcp PCP - General Family Medicine 03/10/20 11/30/21 [facility] [place] [facility] 08/25/21 Ervin Schroeder MD Referring Provider Family Medicine 03/24/211979 [place], [place] [address] documented as of this encounter
--- OUTSIDE RECORDS SUMMARY | 2022-02-04 23:18 | XMS_ITS | Encounter Summary ---
:1990 Author Organization [facility] Address [address] [place] [address] Care Team Providers Name Role Phone Elsewhere, Pcp Primary Care Provider Unavailable Encounter Details Date Type Department Care Team Description 08/11/2021 Hospital Encounter Department of Mousa, Matthew Y, Edema Leg; Laboratory Medicine Joshua Santillan. Cirrhosis Alcoholic (HCC) in [address] [phone] [facility] [phone] [address] (Work) [phone] Social History Tobacco Use Types Packs/Day Years [...] you attend latter day or Never 2021 presybeterian services? 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 - 08/13/2021 10:53 PM CDT [facility] Please can you notify [...] Encounters Date Type Specialty Care Team Description [facility] Radiology Matthew Jerome 2 Encounter Tyrell Rodriguez M.D. [address] [place] [phone] Hospital Gastroenterology and Matthew Jerome 2 Encounter Hepatology Tyrell Rodriguez M.D. [address] [place] [address] Surgery Gastroenterology and Matthew Jerome ESOPHAG OGASTRODUODENOSCOPY 2 Hepatology Vik RodriguezBLilian Bedolla [address] [place] [address] Telemedicine Transplant 2 Lab Laboratory Medicine Karin, 2 Adeline Gannon M.D., Ph.D. [address] [place] [phone] Lab Laboratory Medicine Karin, 2 Adeline Gannon M.D., Ph.D. [address] [place] [address] [phone] Office Visit Transplant Karin, 2 Adeline Gannon M.D., Ph.D. [address] [place] [address] [phone] Office Visit [facility] Internal [facility], 2 Medicine Frances PerezASuma-C. [address] [place] [phone] Appointment Radiology Matthew Jerome 2 Joshua RodriguezBSumaBLilian Bedolla [address] [place] [address] Appointment Gastroenterology and Adrianne, 2 Hepatology Yue Burciaga M.D. [address] [place] [phone] Office Visit Gastroenterology and Matthew Jerome 2 Hepatology Vik RodriguezBLilian Bedolla [address] [place] [phone] Appointment Radiology Queenie Matthew 2 YTyrell M.D. [address] [place] [address] Scheduled Procedures Name Priority Associated [...] CDT eGFR-Black/Afri >90 >=60 08/11/2021 OWAT can [place] mL/min/BSA 1:53 PM CDT Comment: ----ADDITIONAL INFORMATION---- [...] Organization Address City/State/ZIP Code Phon e Number [facility]- [address] [place] [address] [place] [address] System in [place] [address] documented in this encounter Visit Diagnoses Diagnosis Edema Leg Cirrhosis Alcoholic (HCC) Cirrhosis Alcoholic (HCC) Hypertension Portal (HCC) documented in this encounter Care Teams Validation Engineer Relationship Specialty Start Date End Date Elsewhere, Pcp PCP - General Family Medicine 03/10/20 11/30/21 Ervin Schroeder MD Referring Provider Family Medicine 03/24/211979 [address], [place] [address] documented as of this encounter
--- OUTSIDE RECORDS SUMMARY | 2022-02-04 23:18 | XMS_ITS | Encounter Summary ---
:1990 Author Organization [facility] Address [address] [place] [address] Care Team Providers Name Role Phone Elsewhere, Pcp Primary Care Provider Unavailable Encounter Details Date Type Department Care Team Description 08/26/2021 Clinical Communication Department of Felicita Spicer Gastroenterology in E, L.P.N. [place], [place] [phone] [place] [address] ([facility]) [place] [address] Social History Tobacco Use Types Packs/Day [...] do you attend lutheran or Never 2021 taoism services? Do you belong to any clubs or No 07/17/2021 organizations such as lutheran groups, unions, fraCequint or athletic groups, or school groups? How [...] or the highest technical, or vocational p [facility] degree you have received? 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 - 08/29/2021 11:49 AM CDT Called and [...] on Wednesday. Telephone Encounter - Felicita Spicer L.P.N. - 08/29/2021 8:14 AM CDT Patient completed PT yesterday and is now resulted. Please review results and advise as to plan of care as patient is scheduled for EGD on Wednesday. Thank you! Telephone Encounter - Felicita Spicer L.PSumaN. - 08/27/2021 1:24 PM CDT Occupational Therapy Department Chair called patient and left a detailed message [...] to schedule the INR at a [facility] lab or she can stopin tomorrow at any [facility] lab to have this drawn. Provided direct [...] CDT Patient in process of discharge from [facility] (see note below). She did receive [...] and request this be sent to the [facility] in [place]. Upon chart review of past documentation the following was noted by Kerry Naranjo. I have ordered Vitamin K 5 mg X 7 days, to take orally. Then follow up by repeat PT/INR??on the 8th day. Please call pt and ask to get the lab at [facility] in [place]; this allows access to results. Past attempts [...] the patient is currently in patient at [facility] and likely would not be able to start the Rx tonight anyway. Please advise how patient should take vitamin K as she is scheduled for EGD on 09/01/21. A new Rx would need to be sent to the [facility] in [place] as the sheet writer checked with the pharmacy and the they do not have the vitamin K Rx on file. documented in this encounter Plan of Treatment Upcoming Encounters Date Type Specialty Care Team Description [facility] Radiology [facility] 2 Encounter Tyrell Rodriguez M.D. [address] [place] [phone] [facility] Gastroenterology and [facility] 2 Encounter Hepatology Tyrell Rodriguez M.D. [address] [place] [phone] Surgery Gastroenterology and Matthew Jerome ESOPHAG OGASTRODUODENOSCOPY 2 Hepatology Vik RodriguezBLilian Bedolla [address] [place] [phone] Telemedicine Transplant 2 Lab Laboratory Medicine Karin, 2 Adeline Gannon M.D., Ph.D. [address] [place] [phone] Lab Laboratory Medicine Karin, 2 Adeline Gannon M.D., Ph.D. [address] [place] [phone] Office Visit Transplant Karin, Olinda Gannon M.D., Ph.D. [address] [place] [phone] Office Visit [facility], 2 Medicine Vernell Perez [address] [place] [phone] Appointment Radiology Matthew Jerome 2 Joshua RodriguezB.B.Lilian Stock[place] [address] [place] [phone] Appointment Gastroenterology and Adrianne, 2 Hepatology Yue Burciaga M.D. [address] [place] [phone] Office Visit Gastroenterology and Matthew Jerome 2 Hepatology Joshua RodriguezB.B.SLilian Moise [address] [place] [phone] Appointment Radiology Matthew Jerome 2 Y, Lilian Santillan [address] [place] [phone] Scheduled Procedures Name Priority Associated Diagnoses Date/Time [...] documented as of this encounter Care Teams Welder Setter Resistance Machine Relationship Specialty Start Date End Date Elsewhere, Pcp PCP - General Family Medicine 03/10/20 11/30/21 [facility] [place] [facility] 08/25/21 Ervin Schroeder MD Referring Provider Family Medicine 03/24/[address] [place] [phone] documented as of this encounter
--- OUTSIDE RECORDS SUMMARY | 2022-02-04 23:18 | XMS_ITS | Encounter Summary ---
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 [address] [place] [phone] Surgery Gastroenterology and [place] Matthew ESOPHAG OGASTRODUODENOSCOPY 2 Hepatology Tyrell Rodriguez, Lilian [address] [place] [phone] Telemedicine Transplant 2 Lab Laboratory Medicine Karin, Olinda Gannon M.D., Ph.D. [address] [place] [phone] Lab Laboratory Medicine Karin 2 Adeline Gannon M.D., Ph.D. [address] [place] [phone] Office Visit Transplant Karin, Olinda Gannon M.D., Ph.D. [address] [place] [address] [phone] Office Visit [facility], 2 Medicine Vernell Perez [address] [place] [phone] Appointment Radiology Matthew Jerome 2 Y, M.B.B.SSuma, Lilian [address] [place] [phone] Appointment Gastroenterology and Adrianne, 2 Hepatology Yue Burciaga M.D. [address] [place] [phone] Office Visit Gastroenterology and Matthew Jerome 2 Hepatology Jennifer M.B.B.SSuma, Lilian [address] [place] [phone] Appointment Radiology Matthew Jerome 2 Y M.B.B.SLilian Moise [address] [place] [phone] Scheduled Procedures Name Priority Associated Diagnoses Date/Time ESOPHAGOGASTRODUODENOSCOPY Cirrhosis Alc oholic (HCC) 02/10/2022 8:45 AM CDT Hypertension Portal (HCC) documented as of this encounter Visit Diagnoses Diagnosis Ascites Chronic - Primary Cirrhosis Alcoholic (HCC) Hypertension Portal (HCC) documented in this encounter Care Teams Merchandise Processor Relationship Specialty Start Date End Date Elsewhere, Pcp PCP - General Family Medicine 03/10/20 11/30/21 Ervin Schroeder MD Referring Provider Family Medicine 03/24/[address] [place] [address] documented as of this encounter
--- OUTSIDE RECORDS SUMMARY | 2022-02-04 23:18 | XMS_ITS | Encounter Summary ---
:1990 Author Organization [facility] Address [address] [place] [address] Care Team Providers Name Role Phone Elsewhere, Pcp Primary Care Provider Unavailable Reason for Referral Outpatient (Routine) - Closed Specialty Diagnoses / Referred By Contact Referred To Procedures Contact Gastroenterology and Matthew Jerome, [facility] Region Hepatology Lilian Santillan [address] [place] [phone] Referral ID Status Reason Start Date Expiration Date Visits Requ ested Visits Authorized [id number] Closed 08/05/2021 08/05/2022 1 1 Occupational Therapy (Routine) - Closed Specialty Diagnoses / Procedures Referred By Contact Refer red To Contact Diagnoses Edema Leg Matthew Jerome M.B.B.S., [facility] Procedures OT Evaluate and treat M.Jeri [address] [place] [phone] Referral ID Status Reason Start Date Expiration Date Visits Requ ested Visits Authorized [id number] Closed 08/05/2021 08/05/2022 1 1 Reason for Visit Outpatient (Routine) - Closed Specialty Diagnoses / Referred By Contact Referred To Procedures Contact Gastroenterology and Kerry Naranjo, [facility] Hepatology SIGN MAKERJoshua ZamoraSSumaN., R.N. [address] [place] [address] Referral ID Status Reason Start Date Expiration Date Visits Requ ested Visits Authorized [id number] Closed 07/21/2021 07/21/2022 1 1 Encounter Details Date Type Department Care Team Description 08/05/2021 Office Visit Department of Matthew Jerome, Douglas Leg (P rimary Dx); Gastroenterology in Joshua Santillan Cirrhosis Alcoholic (HCC) [address] [phone] Social History Tobacco Use Types [...] do you attend evangelical or Never 2021 sabianist services? Do you [...] or the highest technical, or vocational p Curverider degree you have received? 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 SUBJECTIVE CHIEF COMPLAINT/REASON FOR VISIT Alcohol [...] fall on ice inthe past. Worked at [employer]. For 13 years she was a vegetarian, [...] on her own after a trip to [place] last July 2020, but could not remember why she decided to. Prior to that she had 4 episodes of recurrent pancreatitis. She states that the 1st illness she had was after a trip to [place] when she had abdominal pain and she [...] liver Transplant selection committee meeting in [facility]. She agreed to proceed. I explained [...] contact the liver transplant coordinators to submit [id number], pending approval. Once approved, the transplant coordinators [...] her PCP #[id number] Newly diagnosed PFO with qluth-[id number] atrial shunt: Echo done March 2020 # [...] OLAYINKA Trotter Gastroenterology, Hepatology and Transplant hepatology [facility] documented in this encounter Plan of Treatment Upcoming Encounters Date Type Specialty Care Team Description Hospital Radiology Matthew Jerome 2 Encounter Tyrell Rodriguez M.D. [address] [place] [phone] Hospital Gastroenterology and Matthew Jerome 2 Encounter Hepatology Tyrell Rodriguez M.D. [address] [place] [address] [phone] Surgery Gastroenterology and Matthew Jerome ESOPHAG OGASTRODUODENOSCOPY 2 Hepatology Tyrell Rodriguez M.D. [address] [place] [address] [phone] Telemedicine Transplant 2 Lab Laboratory Medicine Olinda Frazier Adeline Gannon M.D., Ph.D. [address] [place] [phone] Lab Laboratory Medicine Karin, 2 Adeline Gannon M.D., Ph.D. [address] [place] [phone] Office Visit Transplant Karin, 2 Adeline Gannon M.D., Ph.D. [address] [place] [address] [phone] Office Visit [facility] Internal [facility], 2 Medicine Vernell Perez [address] [place] [address] [phone] Appointment Radiology Matthew Jerome 2 YJoshuaB.B.SSuma, Lilian [address] [place] [phone] Appointment Gastroenterology demian Silver 2 Hepatology Yue Burciaga M.D. [address] [place] [phone] Office Visit Gastroenterology and Matthew Jerome 2 Hepatology Joshua RodriguezBSumaB.SSuma, Lilian [address] [place] [address] [phone] Appointment Radiology Matthew Jerome 2 Y M.B.B.SSuma, Lilian [address] [place] [address] [phone] Scheduled Procedures Name Priority Associated Diagnoses Date/Time [...] CDT eGFR-Black/Afri >90 >=60 08/11/2021 [place] can Haitian mL/min/BSA 1:53 PM CDT Comment: ----ADDITIONAL INFORMATION---- [...] Organization Address City/State/ZIP Code Phon e Number [facility]- [address] [place] [address] [facility] [place] [address] System in [place] [address] documented in this encounter Visit Diagnoses Diagnosis Edema Leg - Primary Cirrhosis Alcoholic (HCC) Cirrhosis Alcoholic (HCC) Hypertension Portal (HCC) documented in this encounter Care Teams Hvac Engineer Relationship Specialty Start Date End Date Elsewhere, Pcp PCP - General Family Medicine 03/10/20 11/30/21 Ervin Schroeder MD Referring Provider Family Medicine 03/24/211979 [address] [place] [address] documented as of this encounter
--- OUTSIDE RECORDS SUMMARY | 2022-02-04 23:18 | XMS_ITS | Encounter Summary ---
:1990 Author Organization [facility] Address [address] [place] [address] Care Team Providers Name Role Phone Elsewhere, Pcp Primary Care Provider Unavailable Reason for Visit Reason Comments Referral - Liver Txp Encounter Details Date Type Department Care Team Description 08/14/2021 Clinical Department of Matthew Jerome Referral - Angelica er Communication Gastroenterology in , M.B.B.S., [place], [place] M.D 10[address] [facility] [address] [place] [address] [facility] [phone] [place] [phone] Social History Tobacco Use Types Packs/Day Years [...] do you attend mandaeism or Never 2021 temple services? 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 Jerome wrapping 09/17. After speaking with patient, our hopes are that the remaining testing can be done in [place] the week prior (09/08). Mihaela, I have left the orders in our WQ and they say LTE [place] on them. Feel free to reroute the orders as neccessary! Let [place] [facility] know if you are unable to schedule testing 09/08 week and we can try scheduling the test in [place] instead. Our TTE echoes are going out [...] 6:55 PM CDT ----- Regarding: Liver transplant [id number] Dear team Kindly please submit [id number] for this patient. I had an initial visit with her, and I hope we can complete a liver transplant evaluation on her behalf. I will see her back for a wrap-up visit here in [place]. She will need full workup and consultations, especially Cardiology (abnormal echo 2020) and transplant psychiatry given her psych history. Thanks OM documented in this encounter Plan of Treatment Upcoming Encounters Date Type Specialty Care Team Description [facility] Radiology Matthew Jerome 2 Encounter Tyrell Rodriguez M.D. [facility] [place] [address] Hospital Gastroenterology and Mousa, Matthew 2 Encounter Hepatology Tyrell Rodriguez, Lilian [address] [place] [phone] Surgery Gastroenterology and Mousa, Matthew ESOPHAG OGASTRODUODENOSCOPY 2 Hepatology Tyrell Rodriguez M.D. [address] [place] [phone] Telemedicine Transplant 2 Lab Laboratory Medicine Karin, 2 Adeline Gannon M.D., Ph.D. [address] [place] [phone] Lab Laboratory Medicine Karin, 2 Adeline Gannon M.D., Ph.D. [address] [place] [address] [phone] Office Visit Transplant Karin, 2 Adeline Gannon M.D., Ph.D. [address] [place] [address] [phone] Office Visit [facility], 2 Medicine Vernell Perez [address] [place] [phone] Appointment Radiology Mousa, Matthew 2 Tyrell Rodriguez, Lilian [address] [place] [phone] Appointment Gastroenterology demian Silver, 2 Hepatology Yue Burciaga M.D. [address] [place] [phone] Office Visit Gastroenterology and Matthew Jerome 2 Hepatology YTyrell, Lilian [address] [place] [phone] Appointment Radiology LuisMatthew abdul 2 YTyrell M.D. [address] [place] [phone] Scheduled Procedures Name Priority Associated Diagnoses [...] documented as of this encounter Care Teams Ditch Cleaner Relationship Specialty Start Date End Date Elsewhere, Pcp PCP - General Family Medicine 03/10/20 11/30/21 [facility] [place] 08/25/21 Ervin Schroeder MD Referring Provider Family Medicine 03/24/[address] [place] [phone] documented as of this encounter
--- OUTSIDE RECORDS SUMMARY | 2022-02-04 23:19 | XMS_ITS | Encounter Summary ---
:1990 Author Organization [facility] Address [address] [place] [address] Care Team Providers Name Role Phone Elsewhere, Pcp Primary Care Provider Unavailable Reason for Visit Reason Comments Leg Swelling Encounter Details Date Type Department Care Team Description 08/01/2021 Nurse Triage [facility] Leg Swelling Medicine, [facility], [facility], in [address] [phone] [facility] [address] [phone] Social History Tobacco Use Types Packs/Day Years [...] do you attend buddhist or Never 2021 church services? 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 Photos were sent to her electronic tester. History of Alcoholic Cirrhosis, Live failure, chronic [...] or worsening Protocols used: LEG SWELLING AND [id number] documented in this encounter Plan of Treatment Upcoming Encounters Date Type Specialty Care Team Description Hospital Radiology [facility] 2 Encounter Tyrell Rodriguez M.D. [address] [place] [phone] [facility] Gastroenterology and [facility] 2 Encounter Hepatology Tyrell Rodriguez M.D. [address] [place] [address] [phone] Surgery Gastroenterology and [facility] ESOPHAG OGASTRODUODENOSCOPY 2 Hepatology Tyrell Rodriguez M.D. [address] [place] [phone] Telemedicine Transplant 2 Lab Laboratory Medicine Karin, Olinda Gannon M.D., Ph.D. [address] [place] [address] [phone] Lab Laboratory Medicine Olinda Frazier M.D., Ph.D. [address] [place] [address] [phone] Office Visit Transplant Karin, 2 Adeline Gannon M.D., Ph.D. [address] [place] [phone] Office Visit Community Internal [facility], 2 Medicine Vernell Perez [address] [place] [phone] Appointment Radiology Matthew Jerome 2 YJoshuaB.B.SSuma, Lilian [address] [place] [address] [phone] Appointment Gastroenterology and Adrianne 2 Hepatology Yue Burciaga M.D. [address] [place] [address] [phone] Office Visit Gastroenterology and Matthew Jerome 2 Hepatology Jennifer M.B.B.SSuma, Lilian [address] [place] [phone] Appointment Radiology Matthew Jerome 2 Y M.B.B.SSuma, Lilian [address] [place] [address] [phone] Scheduled Procedures Name Priority Associated Diagnoses Date/Time ESOPHAGOGASTRODUODENOSCOPY Cirrhosis Alc oholic (HCC) 02/10/2022 8:45 AM CDT Hypertension Portal (HCC) documented as of this encounter Visit Diagnoses Not on filedocumented in this encounter Care Teams Industrial Machine System Technician Relationship Specialty Start Date End Date Elsewhere, Pcp PCP - General Family Medicine 03/10/20 11/30/21 Ervin Schroeder MD Referring Provider Family Medicine 03/24/[address] [place] [phone] documented as of this encounter
--- OUTSIDE RECORDS SUMMARY | 2022-02-04 23:19 | XMS_ITS | Encounter Summary ---
:1990 Author Organization [facility] Address [address] [place] [address] Care Team Providers Name Role Phone Elsewhere, Pcp Primary Care Provider Unavailable Reason for Referral Outpatient (Routine) - Closed Specialty Diagnoses / Referred By Contact Referred To Procedures [facility] YARITZA, M.S.N., R.N. [address] [place] [address] Referral ID Status Reason Start Date Expiration Date Visits Requ ested Visits Authorized [id number] Closed 07/21/2021 07/21/2022 1 1 edication Prior Authorization - Closed Specialty Diagnoses / Procedures Referred By Contact Refer red To Contact Kerry Naranjo APRN, M.S.N., R.N. [address] [place] [phone] Referral ID Status Reason Start Date Expiration Date Visits Requ ested Visits Authorized [id number] Closed 1 1 Reason for Visit Outpatient (Routine) - Closed Specialty Diagnoses / Referred By Contact Referred To Procedures Contact Gastroenterology and Kerry Naranjo, [facility] Hepatology YARITZA, M.S.N., R.N. [address] [place] [address] Referral ID Status Reason Start Date Expiration Date Visits Requ ested Visits Authorized [id number] Closed 04/17/2021 04/17/2022 1 1 Encounter Details Date Type Department Care Team Description 07/21/2021 Telemedicine Department of Kerry Naranjo Cirrhosis Alc oholic (HCC) (Primary Dx); Gastroenterology in S, BLOW UP OPERATOR, Ascites; [place], [place] M.S.N., R.N. Deficiency Vitamin D; 1025 [facility] 1025 [facility] Malnutrition Protein-Calorie Unspecified (HCC); [place] [address] [place], [place] Deficiency Coagulation Acqui red (HCC); [phone] Thrombocytopenia (HCC); [phone] Jaundice (Work) Social History Tobacco Use Types [...] do you attend christian or Never 2021 lutheran services? 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 - 07/21/2021 2:45 [...] to find a internal medicine provider at [facility] or [place]; if she feels she needs to be seen more urgently; I would recommend the [facility] which is closest to her. For emergency situation she should present to any emergency department that is closest to her. documented in this encounter Progress Notes Kerry Naranjo APRN, C.N.P., M.S.N. - 07/21/2021 2:45 PM CDT Kerry Naranjo APRN, C.N.P., M.S.N. [address] [place] [address] Patient Name: Catia Carias Date of : 1990 Date of encounter: 07/21/21 ELSEWHERE, PCP VIDEO VISIT Consult conducted via real-time audio/video technology by Kerry Naranjo APRN, C.N.P., M.S.N. at the [facility] to the patient in their home. At the time the patient was scheduled, the crew scheduler read the following script to [...] primary care provider Dr. Ervin Schroeder, from [facility] in [facility]; phone [phone], . She stateshe prescribed vitamin-D for GERD [...] medical card, plus non medical, last 3/6/am Social Determinants of Health Financial Resource Strain: [...] and Family: Twice a week ??? Attends Worship Services: Never ??? 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 -ordered [...] to find a internal medicine provider at [facility] or [place]; if she feels she needs to be seen more urgently; I would recommend the [facility] which is closest to her. For emergency [...] Naranjo APRN, Katrin.N.Shanita., M.S.N. Gastroenterology and Hepatology [facility] documented in this encounter Plan of Treatment Upcoming Encounters Date Type Specialty Care Team Description [facility] Radiology Matthew Jerome 2 Encounter YTyrell M.D. [address] [place] [phone] Hospital Gastroenterology and Luischantell Matthew 2 Encounter Hepatology Tyrell Rodriguez, Lilian [address] [place] [phone] Surgery Gastroenterology and [facility] Matthew ESOPHAG OGASTRODUODENOSCOPY 2 Hepatology Tyrell Rodriguez, Lilian [address] [place] [phone] Telemedicine Transplant 2 Lab Laboratory Medicine Karin, 2 Adeline Gannon M.D., Ph.D. [address] [place] [phone] Lab Laboratory Medicine Karin, 2 Adeline Gannon M.D., Ph.D. [address] [place] [phone] Office Visit Transplant Karin, 2 Adeline Gannon M.D., Ph.D. [address] [place] [phone] Office [facility], 2 Medicine Carlotta PerezC. [address] [place] [phone] Appointment Radiology Luischantell Matthew 2 Tyrell Rodriguez, Lilian [address] [place] [address] [phone] Appointment Gastroenterology and Adrianne, 2 Hepatology Yue Burciaga M.D. [address] [place] [phone] Office Visit Gastroenterology and Matthew Jerome 2 Hepatology Tyrell Rodriguez M.D. [address] [place] [phone] Appointment Radiology Queenie Tyrell May 2, M.D. [address] [place] [phone] Scheduled Procedures Name Priority Associated Diagnoses Date/Time [...] (HCC) documented in this encounter Care Teams Boring Machine Operator Relationship Specialty Start Date End Date Elsewhere, Pcp PCP - General Family Medicine 03/10/20 11/30/21 Ervin Schroeder MD Referring Provider Family Medicine 03/24/[address] [place] [phone] documented as of this encounter
--- OUTSIDE RECORDS SUMMARY | 2022-02-04 23:19 | XMS_ITS | Encounter Summary ---
:1990 Author Organization [facility] Address [address] [place] [address] Care Team Providers Name Role Phone Elsewhere, Pcp Primary Care Provider Unavailable Encounter Details Date Type Department Care Team Description 07/18/2021 Nurse Triage Department of Samia Boyd ch, R.NSuma Medicine, [facility], in [address] [place], [place] [address] [place] [phone] [place] [address] [phone] Social History Tobacco Use Types Packs/Day Years [...] do you attend gnosticism or Never 2021 yarsanism services? 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 - 07/18/2021 10:48 PM CDT Chief Complaint / Reason for Call Patient is a 31 y.o. female calling regarding No chief complaint on file.. Assessment Concern: Patient seen in [place] ED via ambulance this evening, boyfriend found [...] does have appointment Friday 07/21 with her Avionics Systems Engineer Kerry Naranjo CNP for followup. Patient generally frustrated she wasn't given much information or answers in ED visit. Present for: today Home cares tried: takes medications as prescribed Calling to request: advice The recommended disposition is Information or Advice Only Call. Patient agrees to call back if worsens, has followup appointment with aoc airspace control officer Kerry Naranjo who has been following her, also with her PCP outside [place] on Wednesday, 07/23. Patient and significant other agree to call back if worsens or have additional questions. documented in this encounter Plan of Treatment Upcoming Encounters Date Type Specialty Care Team Description Hospital Radiology [facility] 2 Encounter Tyrell Rodriguez M.D. [address] [place] [phone] Hospital Gastroenterology and [facility] 2 Encounter Hepatology Tyrell Rodriguez M.D. [address] [place] [phone] Surgery Gastroenterology and [facility] ESOPHAG OGASTRODUODENOSCOPY 2 Hepatology Tyrell Rodriguez M.D. [address] [place] [phone] Telemedicine Transplant 2 Lab Laboratory Medicine Olinda Frazier M.D., Ph.D. [address] [place] [phone] Lab Laboratory Medicine Olinda Frazier M.D., Ph.D. [address] [place] [phone] Office Visit Transplant Olinda Frazier M.D., Ph.D. [address] [place] [address] [phone] Office Visit [facility], 2 Solitario Perez P.A.-C. [address] [place] [phone] Appointment Radiology Matthew Jerome 2 YVikBLilian Bedolla [address] [place] [phone] Appointment Gastroenterology and Adrianne, 2 Hepatology Yue Burciaga M.D. [address] [place] [phone] Office Visit Gastroenterology and Matthew Jerome 2 Hepatology Vik RodriguezBLilian Bedolla [address] [place] [phone] Appointment Radiology Matthew Jerome 2 YJoshuaB.B.Lilian [place] [address] [place] [address] [phone] Scheduled Procedures Name Priority Associated Diagnoses Date/Time ESOPHAGOGASTRODUODENOSCOPY Cirrhosis Alc oholic (HCC) 02/10/2022 8:45 AM CDT Hypertension Portal (HCC) documented as of this encounter Visit Diagnoses Not on filedocumented in this encounter Care Teams Logistician Relationship Specialty Start Date End Date Elsewhere, Pcp PCP - General Family Medicine 03/10/20 11/30/21 Ervin Schroeder MD Referring Provider Family Medicine 03/24/[address] [place] [phone] documented as of this encounter
--- OUTSIDE RECORDS SUMMARY | 2022-02-04 23:19 | XMS_ITS | Encounter Summary ---
:1990 Author Organization [facility] Address [address] [place] [address] Care Team Providers Name Role Phone Elsewhere, Pcp Primary Care Provider Unavailable Encounter Details Date Type Department Care Team Description 08/01/2021 Clinical Communication [facility] Lester Garber La uren M, [place] M.D. 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 She has been wrapping [...] Type Specialty Care Team Description Hospital Radiology [facility] 2 Encounter Tyrell Rodriguez M.D. [address] [place] [phone] Hospital Gastroenterology and [facility] 2 Encounter Hepatology Tyrell Rodriguez M.D. [address] [place] [phone] Surgery Gastroenterology and [facility] ESOPHAG OGASTRODUODENOSCOPY 2 Hepatology Tyrell Rodriguez M.D. [address] [place] [phone] Telemedicine Transplant 2 Lab Laboratory Medicine Olinda Frazier M.D., Ph.D. [address] [place] [phone] Lab Laboratory Medicine Olinda Frazier M.D., Ph.D. [address] [place] [address] [phone] Office Visit Transplant Olinda Frazier M.D., Ph.D. [address] [place] [phone] Office Visit [facility] Internal [facility], 2 Medicine Vernell Perez 300 [place] [phone] Appointment Radiology Matthew Jerome 2 YJoshuaB.BSumaSLilian Moise [address] [place] [phone] Appointment Gastroenterology and Adrianne 2 Hepatology Yue Burciaga M.D. [address] [place] [phone] Office Visit Gastroenterology and Matthew Jerome 2 Hepatology Joshua RodriguezB.B.SLilian Moise [address] [place] [address] [phone] Appointment Radiology Matthew Jerome 2 Y M.B.B.SLilian Moise [address] [place] [address] [phone] Scheduled Procedures Name Priority Associated Diagnoses Date/Time ESOPHAGOGASTRODUODENOSCOPY Cirrhosis Alc oholic (HCC) 02/10/2022 8:45 AM CDT Hypertension Portal (HCC) documented as of this encounter Visit Diagnoses Not on filedocumented in this encounter Care Teams Land Reclamation Specialist Relationship Specialty Start Date End Date Elsewhere, Pcp PCP - General Family Medicine 03/10/20 11/30/21 Ervin Schroeder MD Referring Provider Family Medicine 03/24/[address] [place] [phone] documented as of this encounter
--- OUTSIDE RECORDS SUMMARY | 2022-02-04 23:19 | XMS_ITS | Encounter Summary ---
:1990 Author Organization [facility] Address [address] [place] [address] Care Team Providers Name Role Phone Elsewhere, Pcp Primary Care Provider Unavailable Reason for Visit Reason Comments Vomiting Pt reports hx of liver cirrh osis, states discussed symptoms of vomiting, inability to tolerate home m edications with specialty team and referred to ED for further evaluation. Encounter Details Date Type Department Care Team Description 07/[facility]2021 [facility] [address] [place] [phone] Abdominal Pain (Primary Dx); 07/26/2021 [facility] Les Jj D.O. [address] [place] [phone] Nausea And Vomiting Emergency Department [facility] [place] [address] Social History Tobacco Use Types [...] do you attend christian or Never 2021 synagogue services? Do you belong to any clubs or No 07/17/2021 organizations such as christian groups, unions, frafarmbuy or athletic groups, or school groups? 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 Godwin. Disposition pending transfer to [place] for abdominal pain, generalized weakness, nausea/vomiting,underlying liver [...] and Family: Twice a week ??? Attends Mandaeism Services: Never ??? Active Member of Clubs [...] Rate Blood Pressure SpO2 07/25/21 1822 07/25/21 182 -- 07/25/21 1822 07/25/21 1822 07/25/21 182 [...] Encounters Date Type Specialty Care Team Description [facility] Radiology [facility] 2 Encounter Tyrell Rodriguez M.D. [address] [place] [phone] [facility] Gastroenterology and [facility] 2 Encounter Hepatology Tyrell Rodriguez M.D. [address] [place] [phone] Surgery Gastroenterology and [facility] ESOPHAG OGASTRODUODENOSCOPY 2 Hepatology Tyrell Rodriguez M.D. [address] [place] [phone] Telemedicine Transplant 2 Lab Laboratory Medicine Olinda Frazier M.D., Ph.D. [address] [place] [phone] Lab Laboratory Medicine Olinda Frazier M.D., Ph.D. [address] [place] [phone] Office Visit Transplant Karin, Olinda Gannon M.D., Ph.D. [address] [place] [phone] Office Visit [facility] Internal [place], 2 Medicine Carlotta PerezCSuma [address] [place] [phone] Appointment Radiology Matthew Jerome 2 Y, M.B.B.SSuma, Lilian [address] [place] [phone] Appointment Gastroenterology and Adrianne, 2 Hepatology Yue Burciaga M.D. [address] [place] [phone] Office Visit Gastroenterology and Matthew Jerome 2 Hepatology Jennifer M.B.B.SLilian Moise [address] [place] [phone] Appointment Radiology Matthew Jerome 2 Y M.B.B.SLilian Moise [address] [place] [address] [place] [phone] Scheduled Procedures Name Priority Associated Diagnoses Date/Time [...] PCR Rapid, V (07/25/2021 9:50 PM CDT) [facility] Method Time Signature SARS CoV-2, Undetected Undetected 07/25/2021 MKTO PCR, Rapid, V 10:32 PM CDT Comment: ----ADDITIONAL INFORMATION---- This RT-PCR test was performed using the Daniel SARS-CoV-2 and Influenza A/B Reagent assay from [employer], which has received Emergency Use Authori zation(EUA) by the U.S. Food and Drug Administration . Fact sheets for this Emergency Use Autho rization (EUA) assay can be found at the following link s: For Healthcare Providers: https://www.fda.gov/media/235298/downloa d For Patients: https://www.fda.gov/media/183532/downloa d SARS Coronavirus 2, Source, Swab, Nasopharynx 07/02 10:06 PM CDT MKTO Rapid Specimen Anatomical Collection Method Collection Time Receive d Time (Source) Location / / Volume Laterality Varies 07/25/2021 9:50 PM 2 CDT 10:06 PM CDT Anthony Godwin M.D. LAB MICROBIOLOGY - GENERAL O RDERABLES Performing Organization Address City/[facility]/ZIP Code Phon e Number [address] [address] [place] [address] SARS Coronavirus 2, PCR, V Asymptomatic (07/25/2021 9:50 PM CDT) P athologist Signature SARS-Coronavir CANCELED 07/25/2021 MKTO us-2, PCR 10:06 PM CDT Comment: ----ADDITIONAL INFORMATION---- This RT-PCR test using the Xpert Xpress SARS-CoV-2/Flu/RSV assay ([employer] performed on the [employer] DX systems has received Emergency Use Authorization (EU A) by the U.S. Food and Drug Administration. Performanc e characteristics were verified by [facility] inic in a manner consistent with CLIA requirements . Fact sheets for this Emergency Use Autho rization (EUA) assay can be found at the following link s: For Healthcare Providers: https://www.fda.gov/media/884514/downloa d For Patients: https://www.fda.gov/media/843814/downloa d Result canceled by the ancillary. Specimen Source CANCELED 07/25/2021 10:06 PM CDT MKALIE Comment: REVISED RESULTS Specimen Anatomical Collection Method Collection Time Receive d Time (Source) Location / / Volume Laterality Varies 07/25/2021 9:50 PM 2 (Nasopharynx) CDT 10:[address] [facility] - 07/25/2021 10:06 PM CDT SARS Coronavirus 2, PCR, V was cancelled on 07/25/2021 at 22:06; Duplicate test request. Anthony Godwin M.D. LAB MICROBIOLOGY - GENERAL O JOSE Performing Organization Address City/[facility]/ZIP [facility] Phon e Number [facility]- [address] [place] [address] [place] [address] (ABNORMAL) Ammonia (07/25/2021 7:05 PM CDT) P athologist Signature Ammonia, P 81 (H) <=51 07/25/2021 MKTO mcmol/L 7:29 PM CDT Specimen Anatomical Collection Method Collection Time Receive d Time (Source) Location / / Volume Laterality Blood (Blood, 07/25/2021 7:05 PM 07/26/19 7:08 Venous) CDT PM CDT Anthony Godwin M.D. LAB BLOOD NON ADD-ON Performing Organization Address City/[facility]/ZIP Code Phon e Number [facility]- [address] [place] [address] [place] [address] Lipase (07/25/2021 7:05 PM CDT) P athologist Signature Lipase, P 13 13 - 60 U/L 07/25/2021 7:30 MKTO PM CDT Specimen Anatomical Collection Method Collection Time Receive d Time (Source) Location / / Volume Laterality Blood (Blood, 07/25/2021 7:05 PM 07/26/19 22 7:08 Venous) CDT PM CDT Anthony Godwin M.D. LAB BLOOD ADD-ON Performing Organization Address City/[facility]/ZIP Code Phon e Number [facility]- [address] [place] [address] [place] [address] (ABNORMAL) Comprehensive Metabolic Panel (07/25/2021 7:05 [...] CDT eGFR-Black/Afri >90 >=60 07/25/2021 MKTO can Mosotho mL/min/BSA 7:30 PM CDT Comment: ----ADDITIONAL INFORMATION---- [...] Organization Address City/State/ZIP Code Phon e Number [facility]- [address] [place] [address] [place] [address] System in [place] [address] [place] [address] (ABNORMAL) CBC with Differential, Blood (07/25/2021 7:05 PM CDT) [facility] Method Time Signature Hemoglobin 7.4 (L) [...] Organization Address City/State/ZIP Code Phon e Number [facility]- [address] [place] [address] [place] [address] System in [place] 1025 [facility] documented in this encounter Visit Diagnoses [...] g (ROCEPHIN) (COMPLETED) 2151 (Given - Provider: Keiht Bahena R.N.) 2 g, intravenous, Once, On [...] as of this encounter Care Teams Study Manager Relationship Specialty Start Date End Date Elsewhere, Pcp PCP - General Family Medicine 03/10/20 11/30/21 Ervin Schroeder MD Referring Provider Family Medicine 03/24/[address] [place] [phone] documented as of this encounter
--- OUTSIDE RECORDS SUMMARY | 2022-02-04 23:19 | XMS_ITS | Encounter Summary ---
:1990 Author Organization [facility] Address [address] [place] [address] Care Team Providers Name Role Phone Elsewhere, Pcp Primary Care Provider Unavailable Encounter Details Date Type Department Care Team Description 07/16/2021 Clinical Communication Department of Kerry Naranjo Gastroenterology in [place], [place] M.S.N., R.N. 1025 [facility] 1025 [place] [address] [place], [place] [phone] Social History Tobacco Use Types Packs/Day [...] do you attend hoahaoism or Never 2021 taoist services? 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 - 07/17/2021 8:00 AM CDT See portal message. Telephone Encounter - Kerry Naranjo APRN, C.N.P., M.S.N. - 07/16/2021 3:41 PM CDT Please call pt and ensure she is taking Lactulose and not drinking any ETOH. Her ammonia is high andher liver labs are reflecting possible recent use of ETOH. Kerry Kraus documented in this encounter Plan of Treatment Upcoming Encounters Date Type Specialty Care Team Description [facility] Radiology Matthew Jerome 2 Encounter YTyrell M.D. 1025 [place] [phone] Hospital Gastroenterology and [facility] 2 Encounter Hepatology Tyrell Rodriguez M.D. [address] [place] [phone] Surgery Gastroenterology and [facility] ESOPHAG OGASTRODUODENOSCOPY 2 Hepatology YTyrell M.D. [address] [place] [phone] Telemedicine Transplant 2 Lab Laboratory Medicine Karin, 2 Adeline Gannon M.D., Ph.D. [address] [place] [phone] Lab Laboratory Medicine Karin, 2 Adeline Gannon M.D., Ph.D. [address] [place] [phone] Office Visit Transplant Karin, 2 Adeline Gannon M.D., Ph.D. [address] [place] [phone] Office Visit Community Internal [facility], 2 Medicine Vernell Perez [address] [place] [phone] Appointment Radiology [facility] 2 YTyrell, Lilian [address] [place] [phone] Appointment Gastroenterology and Adrianne, 2 Hepatology Yue Burciaga M.D. [address] [place] [phone] Office Visit Gastroenterology and Mathtew Jerome 2 Hepatology Joshua RodriguezBSumaBLilian Bedolla 1025 [place] [phone] Appointment Radiology LuisMatthew abdul 2 Joshua RodriguezBSumaBLilian Bedolla 1025 [place] [phone] Scheduled Procedures Name Priority Associated Diagnoses Date/Time ESOPHAGOGASTRODUODENOSCOPY Cirrhosis Alc oholic (HCC) 02/10/2022 8:45 AM CDT Hypertension Portal (HCC) documented as of this encounter Visit Diagnoses Not on filedocumented in this encounter Care Teams Licensed Clinical Social Worker Relationship Specialty Start Date End Date Elsewhere, Pcp PCP - General Family Medicine 03/10/20 11/30/21 Ervin Schroeder MD Referring Provider Family Medicine 03/24/[address] [place] [address] documented as of this encounter
--- OUTSIDE RECORDS SUMMARY | 2022-02-04 23:19 | XMS_ITS | Encounter Summary ---
:1990 Author Organization [facility] Address [address] [place] [address] Care Team Providers Name Role Phone Elsewhere, Pcp Primary Care Provider Unavailable Encounter Details Date Type Department Care Team Description 07/25/2021 Clinical Communication Department of Ines Warren, Gastroenterology in [address] [place] [phone] Social History Tobacco Use Types Packs/Day Years [...] do you attend catholic or Never 2021 alevism services? 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 - 07/25/2021 2:57 PM CDT Patient called back again. Patient states that she is going to call 911 for an ambulance. Patient states that her abdominal pain is bad and she is becoming increasing confused. Patient [facility] to go toa [facility] for evaluation. Told patient to request [facility]. Patient is home alone as her mother and fiance are working [facility]. Telephone Encounter - Kerry Naranjo APRN, C.N.P., M.S.N. - 07/25/2021 2:41 PM CDT AL In case you get a call on this [facility] clinic cirrhoticSuma Payne Telephone Encounter - Kerry Naranjo APRN, [...] Type Specialty Care Team Description Hospital Radiology [facility] 2 Encounter Tyrell Rodriguez, Lilian [address] [place] [phone] [facility] Gastroenterology and [facility] 2 Encounter Hepatology Tyrell Rodriguez M.D. [address] [place] [phone] Surgery Gastroenterology and [facility] ESOPHAG OGASTRODUODENOSCOPY 2 Hepatology Tyrell Rodriguez, Lilian [address] [place] [phone] Telemedicine Transplant 2 Lab Laboratory Medicine Karin, Olinda Gannon M.D., Ph.D. [address] [place] [phone] Lab Laboratory Medicine Olinda Frazier M.D., Ph.D. [address] [place] [phone] Office Visit Transplant Karin, Olinda Gannon M.D., Ph.D. [address] [place] [phone] Office Visit [facility], 2 Medicine Vernell Perez 300 [place] [phone] Appointment Radiology Matthew Jerome 2 YElizabeth.B.B.SSuma, Lilian [address] [place] [phone] Appointment Gastroenterology and Adrianne, 2 Hepatology Yue Burciaga M.D. [address] [place] [phone] Office Visit Gastroenterology and Mattehw Jerome 2 Hepatology Joshua RodriguezB.B.SLilian Moise [address] [place] [phone] Appointment Radiology Matthew Jerome 2 Y M.B.B.SSuma, Lilian [address] [place] [phone] Scheduled Procedures Name Priority Associated Diagnoses Date/Time ESOPHAGOGASTRODUODENOSCOPY Cirrhosis Alc oholic (HCC) 02/10/2022 8:45 AM CDT Hypertension Portal (HCC) documented as of this encounter Visit Diagnoses Not on filedocumented in this encounter Care Teams Lacquer Dipping Machine Operator Relationship Specialty Start Date End Date Elsewhere, Pcp PCP - General Family Medicine 03/10/20 11/30/21 Ervin Schroeder MD Referring Provider Family Medicine 03/24/211979 [address] [place] [address] [phone] documented as of this encounter
--- OUTSIDE RECORDS SUMMARY | 2022-02-04 23:19 | XMS_ITS | Encounter Summary ---
:[address] [facility] Address [address] [place] [address] Care Team Providers Name Role Phone Elsewhere, Pcp Primary Care Provider Unavailable Reason for Visit Reason Comments Sleepiness Encounter Details Date Type Department Care Team Description 07/19/2021 Documentation Division of Gastroenterology Wali Baldwin in [facility] pedro Mendez M.D. [address] [facility] [address] [place] [address] [place], [place] [phone] (Wo rk) Social History Tobacco Use Types [...] do you attend yarsani or Never 2021 confucianist services? 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 - 07/19/2021 2:04 AM CDT On-call Fellow Note: Patient is not a patient of [facility] but was connected to the [...] Type Specialty Care Team Description Hospital Radiology [facility] 2 Encounter Tyrell Rodriguez M.D. [address] [place] [phone] Hospital Gastroenterology and [facility] 2 Encounter Hepatology Tyrell Rodriguez M.D. [address] [place] [phone] Surgery Gastroenterology and [facility] ESOPHAG OGASTRODUODENOSCOPY 2 Hepatology Tyrell Rodriguez M.D. [address] [place] [phone] Telemedicine Transplant 2 Lab Laboratory Medicine Karin, 2 Adeline Gannon M.D., Ph.D. [address] [place] [phone] Lab Laboratory Medicine Karin, 2 Adeline Gannon M.D., Ph.D. [address] [place] [address] [phone] Office Visit Transplant Karin, 2 Adeline Gannon M.D., Ph.D. [address] [place] [phone] Office Visit Community Internal [facility], 2 Solitario Perez P.A.-C. [address] [place] [address] [phone] Appointment Radiology LuisMatthew abdul 2 Y M.B.B.Lilian [place] 1025 [place] [phone] Appointment Gastroenterology and Adrianne 2 Hepatology Yue Burciaga M.D. [address] [place] [phone] Office Visit Gastroenterology and LuisNew abdular 2 Hepatology Joshua RodriguezB.B.Lilian [place] [address] [place] [phone] Appointment Radiology QueenieNewar 2 YJoshuaB.B.Lilian [place] [address] [place] [phone] Scheduled Procedures Name Priority Associated Diagnoses Date/Time ESOPHAGOGASTRODUODENOSCOPY Cirrhosis Alc oholic (HCC) 02/10/2022 8:45 AM CDT Hypertension Portal (HCC) documented as of this encounter Visit Diagnoses Not on filedocumented in this encounter Care Teams Diversity Manager Relationship Specialty Start Date End Date Elsewhere, Pcp PCP - General Family Medicine 03/10/20 11/30/21 Ervin Schroeder MD Referring Provider Family Medicine 03/24/[address] [place] [phone] documented as of this encounter
--- OUTSIDE RECORDS SUMMARY | 2022-02-04 23:19 | XMS_ITS | Encounter Summary ---
:1990 Author Organization [facility] Address [address] [place] [address] Care Team Providers Name Role Phone Elsewhere, Pcp Primary Care Provider Unavailable Reason for Visit Auth/Cert Specialty Diagnoses / Procedures Referred By Contact Refer red To Contact Diagnoses Vomiting Abdominal pain Procedures n/a Referral ID Status Reason Start Date Expiration Date Visits Requ ested Visits Authorized [id number] 1 1 Encounter Details Date Type Department Care Team Description 07/26/2021 - Hospital Encounter [facility] Radha Bennett M. D. [address] [place] [phone] Vomiting (Primary 07/27/2021 [facility] Serene Montgomery M.D. [address] [place] [address] [phone] Dx) [facility], Fifth Floor [address] [place] [address] [phone] Social History Tobacco Use Types Packs/Day Years [...] do you attend yazidism or Never 2021 episcopalian services? Do you belong to any clubs or No 07/17/2021 organizations such as yazidism groups, unions, [employer]a [employer] or athletic groups, or school groups? 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 Primary Team: T Medicine 1 ([facility]) Primary Care Providers: Elsewhere, Pcp (General) No [...] 01 [facility] Laboratory Medicine 08/29/2021 4:00 PM [facility] COVID PRE SCREEN [facility] Family Medicine For appointment details [...] more sleepy than usual. She presented to [facility] emergency department on 07/25 with nausea, [...] local hospital beds, she was transferred to [facility] for further investigation and management. On presentation at [facility], she was in stable condition with [...] by mouth 2 (two) times a day. celecoxib (CeleBREX) 200 Take 200 mg by [...] 6 (six) hours as needed for nausea. sodium bicarbonate 650 mg Take 650 mg by 0 09/30/2021 tablet mouth 2 (two) times a day. spironolactone Take 1 tablet (50 30 tablet 1 03/24/202107/2021 (ALDACTONE) 50 mg tablet mg total) by mouth daily. Vitamin B-1, mononitrate, Take 100 mg by 0 202109/30/2021 100 mg tablet mouth every morning. amitriptyline 2%-ketamine Apply topically 3 30 g 3 09/30/2021 5%-lidocaine 5% in (three) times a lipoderm day. Apply to affected areas three times daily. rOPINIRole (REQUIP) 1 mg Take 1 mg by mouth 0 09/30/2021 tablet at bedtime. vitamin A 3,000 mcg Take 1 capsule 50 capsule 0 07/21/2021 0 10/08/2021 (10,000 Unit) capsule (3,000 mcg total) by mouth 3 (three) times a week for 50 doses. documented as of this encounter Progress Notes [...] they are not effective for her N/V. Pharm. LoryDSuma, R.Ph. documented in this encounter H&P Notes Virginie Batista M.D. - 07/26/2021 11:07 AM CDT [facility] Medicine 1 ([facility]) Admission Note SUBJECTIVE CHIEF COMPLAINT Nausea and [...] admitted locally and she was transferred to [place]. Of note, on 07/06/21, she presented to [...] border. 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 Cardiology was consulted and recommended follow up with a cavalry officer in the outpatient setting. Ms. Carias tells [...] with her boyfriend in an apartment in [place], [place]. She is not currently working but usedto work at the [employer] in [place]. Her last drink of alcohol was in [...] intact. No evidence of disorganizedthinking. Reliable history occasional caregiver. She has insight into her history of [...] female who presented to the ED in [place] yesterday with nausea and vomiting for about [...] that she followed up with them at [place]. - Plan: ?? Recommend Cardiology outpatient follow [...] you have questions. Thank you, Diana Hickey [facility] Clinical Documentation Wind Energy Mechanic Query created by: ZACH Trevizo 07/28/2021 11:55 [...] more sleepy than usual. She presented to [facility] emergency department on 07/25 with nausea, [...] local hospital beds, she was transferred to [facility] for further investigation and management. On presentation at [facility], she was in stable condition with [...] Encounters Date Type Specialty Care Team Description [facility] Radiology [facility] Matthew 2 Encounter Tyrell Rodriguez M.D. [address] [place] [phone] [facility] Gastroenterology and [facility] [place] 2 Encounter Hepatology Tyrell Rodriguez M.D. [address] [place] [phone] Surgery Gastroenterology and Matthew Jerome ESOPHAG OGASTRODUODENOSCOPY 2 Hepatology Kishore Rodriguez.B.SLilian Moise [address] [place] [phone] Telemedicine Transplant 2 Lab Laboratory Medicine Karin, 2 Adeline Gannon M.D., Ph.D. [address] [place] [phone] Lab Laboratory Medicine Karin, 2 Adeline Gannon M.D., Ph.D. [address] [place] [phone] Office Visit Transplant Karin, Olinda Gannon M.D., Ph.D. [address] [place] [phone] Office Visit Community [facility], 2 Medicine Farida Perez-C. [address] [place] [address] [phone] Appointment Radiology Matthew Jerome 2 YElizabeth.B.B.SLilian Moise [address] [place] [phone] Appointment Gastroenterology and Adrianne, 2 Hepatology Yue Burciaga M.D. [address] [place] [phone] Office Visit Gastroenterology and Matthew Jerome 2 Hepatology Joshua RodriguezB.B.SLilian Moise [address] [place] [phone] Appointment Radiology Matthew Jerome 2 Y, Lilian Santillan [address] [place] [phone] Pending Results Name Type Priority Associated Diagnoses Date/Ti me Prepare Red Blood Blood Bank Routine 07/26/2021 [...] LD (Lactate Dehydrogenase) (07/27/2021 10:15 AM CDT) [facility] Monica LD 218 122 - 222 07/27/2021 DTL U/L 11:27 AM CDT Specimen Anatomical Collection Method Collection Time Receive d Time (Source) Location / / Volume Laterality Blood (Blood, 07/27/2021 10:15 07/27/2021 Venous) AM CDT 11:03 AM CDT Conor Santillan, M.S. LAB BLOOD NON ADD-ON Performing Organization Address [facility] Phon e Number [facility] - 200 [place], [place] [address] [facility] [place] [address] Laboratories[address] Direct Antiglobulin Test (Poly) (07/27/2021 10:15 AM CDT) Patholo gist Method Time Signature Direct Negative Negative 07/27/2021 STRM Antiglobulin 10:50 AM CDT Test, Polyspecific Specimen Anatomical Collection Method Collection Time Receive d Time (Source) Location / / Volume Laterality Blood (Blood, 07/27/2021 10:15 07/27/2021 Venous) AM CDT 10:27 AM CDT Conor Santillan, M.S. LAB BLOOD BANK TEST O RDERABLES Performing Organization Address City/[facility] Code Phon e Number [facility] - 200 [place], [place] [address] [facility] [place] [address] Laboratories-[address] Peripheral Smear Interpretation (07/27/2021 9:39 AM CDT) Component Value Ref Test Analysis Performed Pathologis t Range Method Time At [facility] 07/28/2021 [facility] 10:50 AM CDT Report Marcela Rogers M.D. 07/28/2021 [facility] electronically 10:50 AM signed by CDT I verify that I have examined all relevant slides/materials for the specimen(s) and rendered or confirmed the diagnosis. Interpretation Marked acanthocytosis present, compatible with clini ada 07/28/2021 [facility] history of alcohol-associated cirrhosis. 10:50 AM CDT Specimen Anatomical Collection Method Collection Time Receive d Time (Source) Location / / Volume Laterality Blood 07/27/2021 9:39 AM 9:39 CDT AM CDT Conor Santillan, M.S. LAB PATHOLOGY/CYTOLOG Y ORDERABLES Performing Organization Address City/[facility]/ZIP Code Phon e Number [facility] - [address] (ABNORMAL) Reticulocytes (07/27/2021 9:39 AM CDT) Patholo gist Method Time Signature Reticulocytes, B 7.52 (H) 0.60 - 07/27/2021 PM 2.71 % 11:12 AM CDT Absolute 155.7 (H) 30.4 - 07/27/2021 [facility] Reticulocyte 110.9 11:12 AM CDT x10(9)/L Specimen Anatomical Collection Method Collection Time Receive d Time (Source) Location / / Volume Laterality Blood (Blood, 07/27/2021 9:39 AM 07/28/19 9:39 Venous) CDT AM CDT Conor Santillan, M.S. LAB BLOOD ADD-ON Performing Organization Address City/[facility]/ZIP Code Phon e Number [facility] - [address] (ABNORMAL) Morphology Evaluation (Special Smear) (07/27/2021 9:39 AM CDT) Analysis Performed At Patho logist Time Signature Neutrophilic Segs 78 (H) 50 - 75 % 07/28/2021 DTL and Bands 11:07 AM CDT Lymphocytes 16 (L) 18 - 42 % 07/28/2021 [facility] 11:07 AM CDT Monocytes 6 2 - 11 % 07/28/2021 [facility] 11:07 AM CDT Specimen Anatomical Collection Method Collection Time Receive d Time (Source) Location / / Volume Laterality Blood (Blood, 07/27/2021 9:39 AM 07/28/19 9:39 Venous) CDT AM CDT Conor Santillan, M.S. LAB BLOOD ADD-ON Performing Organization Address City/[facility]/ZIP Code Phon e Number [facility] - 200 [place] [address] [facility] [place] [address] Laboratories-[facility] 200 [facility] [place] [address] [facility] 200 [facility] (ABNORMAL) CBC with Differential, Blood (07/27/2021 5:10 AM CDT) [facility] Method Time Signature Hemoglobin 7.5 (L) [...] M.D. LAB BLOOD ADD-ON Performing Organization Address City/[facility] Phon e Number [facility] - [address] [place] [address] Laboratories-[address] (ABNORMAL) Prothrombin Time (PT) (07/27/2021 5:09 AM CDT) [facility] Time Signature Prothrombin 31.4 (H) 9.4 - [...] M.D. LAB BLOOD ADD-ON Performing Organization Address City/[facility] Phon e Number [facility] - [address] [place] [address] [place] [address] [address] (ABNORMAL) Hepatic Function Panel (07/27/2021 5:09 AM CDT) [facility] Method Time Signature Bilirubin, Total, S [...] City/State/ZIP Code Phon e Number [facility] - 200 [place], [place] [address] [facility] [place] [address] Laboratories-[facility] [address] (ABNORMAL) Basic Metabolic Panel (07/27/2021 5:09 AM [...] 07/27/2021 DTL Black/ mL/min/BSA 5:52 AM CDT Lao Comment: ----ADDITIONAL INFORMATION---- Estimated GFR calculated using [...] City/State/ZIP Code Phon e Number [facility] - [address] [place], [place] [address] [facility] [place] [address] Laboratories-[facility] [address] (ABNORMAL) Haptoglobin (07/27/2021 5:04 [...] City/State/ZIP Code Phon e Number [facility] [address] [place], [place] [address] [facility] [address] Laboratory Medicine and Pathology [address] [place] (ABNORMAL) Hemoglobin (07/26/2021 9:57 PM CDT) athologist Signature Hemoglobin 8.2 (L) 11.6 - 15.0 07/26/2021 DTL g/dL 10:19 PM CDT Specimen Anatomical Collection Method Collection Time Receive d Time (Source) Location / / Volume Laterality Blood (Blood, 07/26/2021 9:57 PM 07/27/19 22 Venous) CDT 10:14 PM CDT Ana Montanez M.D. LAB BLOOD ADD-ON Performing Organization Address City/State/ZIP Code Phon e Number [facility] - [address] [place], [place] [address] [facility] [place] [address] [facility] [address] Transfuse Red Blood Cells : (07/26/2021 7:19 PM CDT) Conor Santillan M.S. BLOOD TRANSFUSION ORD ERABLES Transfuse Red [...] City/State/ZIP Code Phon e Number [facility] - [address] [place], [place] [address] [facility] [place] [address] [facility] [address] Osmolality, Urine (07/26/2021 12:11 PM CDT) P athologist Signature Osmolality, U 613 150 - 1150 07/26/2021 DTL mOsm/kg 2:34 PM CDT Specimen Anatomical Collection Method Collection Time Receive d Time (Source) Location / / Volume Laterality Urine 07/26/2021 12:11 07/26/2021 PM CDT 12:58 PM CDT Virginie Batista M.D. LAB URINE ORDERABLES Performing Organization Address City/[facility]/ZIP Code Phon e Number [facility] - [address] pH, Random, Urine (07/26/2021 12:11 PM CDT) athologist Signature pH, Random, U 6.7 4.5 - 8.0 07/26/2021 DTL 2:34 PM CDT Specimen Anatomical Collection Method Collection Time Receive d Time (Source) Location / / Volume Laterality Urine 07/26/2021 12:11 07/26/2021 PM CDT 12:58 PM CDT Virginie Batista M.D. LAB URINE ORDERABLES Performing Organization Address City/[facility] Code Phon e Number [facility] - [address] (ABNORMAL) Microscopic Manual (07/26/2021 12:11 PM [...] M.D. LAB URINE ORDERABLES Performing Organization Address City/[facility]/ZIP [facility] Phon e Number [facility] - [address] Urinalysis with Microscopic: Urine, Midstream (07/26/2021 12:11 PM CDT) [facility] Method Time Signature Source Urine, Urine, [...] City/State/ZIP Code Phon e Number [facility] - [address] [place] [address] [facility] [place] [address] [facility]-[address] (ABNORMAL) Prothrombin Time (PT) (07/26/2021 10:58 AM CDT) [facility] Method Time Signature Prothrombin 33.7 (H) [...] M.D. LAB BLOOD ADD-ON Performing Organization Address [facility] Phon e Number [facility] - [address] [place] [address] [place] [address] [place] [address] CRP (C-Reactive Protein) (07/26/2021 10:58 AM CDT) P athologist Signature C-Reactive 4.6 <=8.0 mg/L 07/26/2021 DTL Protein (CRP), 11:55 AM CDT S Specimen Anatomical Collection Method Collection Time Receive d Time (Source) Location / / Volume Laterality Blood (Blood, 07/26/2021 10:58 07/26/2021 Venous) AM CDT 11:38 AM CDT Virginie Batista M.D. LAB BLOOD ADD-ON Performing Organization Address [facility] Phon e Number [facility] - [address] [place] [address] Laboratories-[address] (ABNORMAL) Basic Metabolic Panel (07/26/2021 10:58 [...] 07/26/2021 DTL Black/ mL/min/BSA 11:55 AM CDT Lao Comment: ----ADDITIONAL INFORMATION---- Estimated GFR calculated using [...] City/State/ZIP Code Phon e Number [facility] - [address] [place] [address] [facility] [place] [place] [address] [facility] [address] [facility] (ABNORMAL) CBC with Differential, Blood (07/26/2021 10:58 AM CDT) [facility] Method Time Signature Hemoglobin 6.8 (L) [...] M.D. LAB BLOOD ADD-ON Performing Organization Address City/[facility] Phon e Number [facility] - [address] [place], [place] [address] [place] [address] Type and Screen (with reflex Antibody ID) (07/26/2021 10:57 AM CDT) [facility] Method Time Signature ABORh B Pos [...] BANK TEST ORDERABL ES Performing Organization Address City/[facility] Phon e Number [address] STRM [place] [address] [facility] [place] 200 [facility] (ABNORMAL) Hepatic Function Panel (07/26/2021 10:57 [...] City/State/ZIP Code Phon e Number [facility] - [address] [place] [address] [facility] [place] [address] [facility] [address] [facility] Magnesium (07/26/2021 10:57 AM CDT) P athologist Signature Magnesium, S 1.8 1.7 - 2.3 07/26/2021 DTL mg/dL 3:17 PM CDT Specimen Anatomical Collection Method Collection Time Receive d Time (Source) Location / / Volume Laterality Blood (Blood, 07/26/2021 10:57 07/26/2021 2:55 Venous) AM CDT PM CDT Virginie Batista M.D. LAB BLOOD ADD-ON Performing Organization Address City/State/ZIP Code Phon e Number [facility] - 200 [place], [place] [address] [facility] [place] [address] [facility] [address] ECG 12 Lead (07/26/2021 9:10 AM CDT) P athologist Signature Ventricular Rate 77 BPM MUSE ECG/Min MI Interval 160 ms MUSE QRSD Interval 92 ms MUSE QT Interval 418 ms MUSE QTC Interval 473 ms MUSE P [place] -12 degrees MUSE R [place] 53 degrees MUSE T Wave [place] -6 degrees MUSE Specimen Anatomical Collection Method [...] Batista M.D. ECG ORDERABLES Performing Organization Address [facility]/ZIP Code Phon e Number MUSE MUSE NA [...] 10, headaches, Starting on 07/26/21 at 1038 foqjrmnaaqgvy-hhuhtekbad-glixzjid in Lipoderm Given 07/28/19 10:15 AM CDT [...] sleep, Starting on Sat 2 at 1354 vkcioitplagr-gndl-KI-Ca-minerals 400 mcg Given 07/27/2021 8:00 A M [...] D3) 0800 (Given - Provider: Celena Richardson RGabby) 400 Units, oral, Daily, First dose on Don[place] n 07/27/21 at 0900, cholecalciferol 400 units oral daily was interchanged for ergocalciferol 400 units oral daily ciprofloxacin tablet 500 mg (CIPRO) 0800 (Given - Provider: Celena Richardson RGabby) 500 mg, oral, Daily before breakfast, Fi [...] 1116 (Given - Pr ovider: Humera Murray R.N.) 0800 (Given - Provider: Celena Richardson R.N.) 20 mg, oral, Daily, First dose on 07/26/21 at 1045 gabapentin capsule 300 mg (NEURONTIN) 14 09 (Given - Provider: Humera Murray R.N.)2006 (Given - Provider: Ana Paula Noriega R.N.) 0800 (Given - Provider: Celena Richardson R.N.)1406 (Given - Provider: Celena Richardson R.N.) 300 mg, oral, 3 times daily, [...] Richardson R.N.)1406 (Given - Provider: Celena Richardson RSumaNSuma) 30 g, oral, 3 times daily, First dose on 07/26/21 at 1400 magnesium oxide tablet 400 mg (MAG-OX) 1 614 (Given - Provider: Humera Murray R.N.) 0800 (Given - Provider: Celena damon R.NSuma) 400 mg, oral, 2 times daily before break fast and dinner, First dose on 07/26/21 at 1600 axywtqkdgrlp-jcue-KR-Ca-minerals 400 mcg (folic acid) tablet 1 tablet (THERAPEUTIC-M) 0800 (Given - Provid er: Celena Richardson RSumaNSuma) 1 tablet, oral, Daily, First dose on 07/27/[address] tablet 40 mg (PROTONIX) 08 (Given - Provider: Celena Richardson R.N.) 40 mg, oral, Daily before breakfast, [...] RSumaNSuma) 0800 (Given - Provider: Celena damon RSumaNSuma) 50 mg, oral, Daily, First dose on [...] 10, headaches, Starting on 07/26/21 at 1038 gjckwvezuhpfo-lohgtvakru-pfplqgyc in Lipoderm 2%-5%-5% cream 1 g 1220 (Given - Provider: Humera Murray RSumaNSuma) 0108 (Given - Provider: Ana Paula Noriega RSuma NSuma)1015 (Given - Provider: Celena Richardson RSumaNSuma) 1 [...] (ZOFRAN-ODT) 1722 (Given - Provider: Humera Murray RSumaNSuma) 4 mg, oral, Every 6 hours PRN, nausea, v omiting, Starting on 07/26/21 at 1615, When splitting ODT at bedside, handle with gloves and a pill splitter to prevent moisture contact. oxyCODONE IR tablet 5 mg (ROXICODONE) 11 16 (Given - Provider: Humera Murray RSumaNSuma)2237 (Given - Provider: Ana Paula Noriega R.N.) 0813 (Given - Provider: Celena Richardson RSumaNSuma)1444 (Given - Provider: Celena Richardson RGabby) 5 mg, oral, Every 6 hours PRN, moderate pain or score 4-6 of 10, severe pain or score 7-10 of 10, Starting on 07/26/21 at 1036 documented in this encounter Care Teams Recycling Manager Relationship Specialty Start Date End Date Elsewhere, Pcp PCP - General Family Medicine 03/10/20 11/30/21 Ervin Schroeder MD Referring Provider Family Medicine 03/24/[address] [place] [phone] documented as of this encounter
--- OUTSIDE RECORDS SUMMARY | 2022-02-04 23:19 | XMS_ITS | Encounter Summary ---
:1990 Author Organization [facility] Address [address] [place] [address] Care Team Providers Name Role Phone Elsewhere, Pcp Primary Care Provider Unavailable Reason for Referral Outpatient (Routine) - Authorized Specialty Diagnoses / Procedures Referred By Contact Refer red To Contact Emergency Medicine Diagnoses Edema Peripheral Elevated Bilirubin Margy Paul M.D. [address] [phone] Referral ID Status Reason Start Date Expiration Date Visits V isits Requested Authorized [id number] Authorized 08/03/2021 08/03/2022 1 1 Outpatient (Routine) - Authorized Specialty Diagnoses / Procedures Referred By Contact Refer red To Contact Emergency Medicine Diagnoses Edema Peripheral Margy Paul M.D. [address] [phone] Referral ID Status Reason Start Date Expiration Date Visits V isits Requested Authorized [id number] Authorized 08/03/2021 08/03/2022 1 1 Reason for Visit Reason Comments Leg Swelling Pt states she has had bilate ral lower leg swelling for the past week. Encounter Details Date Type Department Care Team Description 08/02/2021 - Emergency [facility] Juliana Stevens D.O. [address] [place] [phone] Edema Peripheral (Primary Dx); 08/03/2021 [facility] Margy Paul M.D. [address] [place] [address] Hypokalemia; Emergency Department Elevated Bilirubin; [address] [place] [phone] Social History Tobacco Use Types Packs/Day Years [...] do you attend baptist or Never 2021 sabianist services? Do you [...] or the highest technical, or vocational p universal health services degree you have received? 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 Emergency Department today for your symptoms [...] every morning before breakfast. furosemide (LASIX) 20 mg Take 2 tablets (40 30 tablet 1 07/202112/10/2021 tablet mg total) by mouth daily. spironolactone Take 2 tablets (100 30 tablet 1 08/03/2021 0 12/10/2021 (ALDACTONE) 50 mg tablet mg total) by mouth daily. Xifaxan 550 mg tablet Take 1 tablet [...] 1 202109/30/2021 mg total) by mouth daily. gabapentin (NEURONTIN) [...] tablet mouth 2 (two) times a day. vitamin A 3,000 mcg Take 1 capsule [...] from ED at 0700. Pt stated to mortgage or loan underwriter that her mother was on her way from [facility] pick her up at that time. Pt was still in lobby at 0900. Mother was not enroute-pt had never actually talked to her about a ride (had left a text message). Pt approached by mortgage or loan underwriter and asked what her plan was as hospital rules prohibit her from sitting in lobby until 1pm as that is when pt wants to go visit her friend on the unit. Pt then stated she didn't think she should have been discharged. Pt then informed by mortgage or loan underwriter that shehas the ability to check back in and be evaluated by another physician. Pt declined and stated she did not want more blood work or another IV. I just want to visit my friend. Pt again talked to someone on the phone and said Will you come and get me?. She then said her mother was on her way. [facility] Shyla Ojeda R.N. 08/03/21 [...] of her legs. No beds here in [place]. Have had a conversation regarding admission vs [...] and Family: Twice a week ??? Attends Religion Services: Never ??? Active Member of [employer] [...] this time. Unfortunately no beds here in [place] and patient prefers to wait until bed availability could potentially open up tomorrow rather than attempt transfer to [facility]. Transfer of patient's care pending admission to [facility] ED attending Dr. Paul. Final Diagnoses: as [...] Ketone Negative Bilirubin Negative pH 7.0 Specific Arden 1.005 Urobilinogen 0.2 White Blood Cells None [...] care [facility] Dr[facility] Paul. DIAGNOSIS: Final diagnoses: [R60.9] Edema Peripheral [E87.6] Hypokalemia [E80.7] Elevated Bilirubin [D64.9] Anemia Juliana Stevens D.O. 08/06/21 1123 documented in this encounter Plan of Treatment Upcoming Encounters Date Type Specialty Care Team Description [facility] Radiology [facility] 2 Encounter Tyrell Rodriguez M.D. [address] [place] [phone] [facility] Gastroenterology and [facility] 2 Encounter Hepatology Tyrell Rodriguez M.D. [address] [place] [phone] Surgery Gastroenterology and [facility] ESOPHAG OGASTRODUODENOSCOPY 2 Hepatology Vik RodriguezBLilian Bedolla [address] [place] [address] Telemedicine Transplant 2 Lab Laboratory Medicine Karin, 2 Adeline Gannon M.D., Ph.D. [address] [place] [address] [phone] Lab Laboratory Medicine Karin, 2 Adeline Gannon M.D., Ph.D. [address] [place] [address] [phone] Office Visit Transplant Karin, 2 Adeline Gannon M.D., Ph.D. [address] [place] [address] [phone] Office Visit [facility], 2 Medicine Vernell Perez [address] [place] [phone] Appointment Radiology Matthew Jerome 2, M.B.B.S., M.D. [facility] [place] [address] Appointment Gastroenterology and [place], 2 Hepatology Yue Burciaga M.D. [address] [place] [phone] Office Visit Gastroenterology and Matthew Jerome 2 Hepatology Tyrell Rodriguez M.D. [address] [place] [phone] Appointment Radiology Matthew Jerome 2, M.B.B.S., M.D. [address] [place] [address] Scheduled Procedures Name Priority Associated [...] Hepatic Function Panel (08/03/2021 4:27 AM CDT) [facility] Method Time Signature Bilirubin, Total, P 9.0 [...] Organization Address City/State/ZIP Code Phon e Number [facility]- [address] [place] [address] [place] [address] System [address] (ABNORMAL) CBC without Differential (08/03/2021 4:27 AM CDT) [facility] Method Time Signature Hemoglobin 7.5 (L) 11.6 [...] Organization Address City/State/ZIP Code Phon e Number [facility]- [address] [place] [address] [place] [address] [address] Urinalysis with Microscopic: Urine, Midstream (08/03/2021 12:07 AM CDT) [facility] Time Signature Source Urine, Urine, 08/03/2021 [facility] [...] 8.0 08/03/2021 12:13 AM CDT [facility] Specific Arden 1.005 1.001 - 1.035 08/03/2021 12:13 AM [...] Organization Address City/State/ZIP Code Phon e Number [facility]- [address] [place] [address] [place] [address] [address] (ABNORMAL) NT-Pro B-Type Natriuretic Peptide (BNP) [...] supplements. ??If the result does not [facility] clinical observations, repeat testing after patient refrains fr om the use of supplements for at least 12 hours. Specimen Anatomical Collection Method Collection Time Receive d Time (Source) Location / / Volume Laterality Blood (Blood, 08/02/2021 10:44 08/02/2021 Venous) PM CDT 10:50 PM CDT Juliana Stevens D.O. LAB BLOOD ADD-ON Performing Organization Address [facility] Phon e Number [address] [address] [place] [address] [address] (ABNORMAL) Prothrombin Time (PT) (08/02/2021 10:44 [...] D.O. LAB BLOOD ADD-ON Performing Organization Address City/[facility] Phon e Number [facility]- [address] [place] [address] [place] [address] Lipase (08/02/2021 10:44 PM CDT) P athologist Signature Lipase, P 14 13 - 60 U/L 08/02/2021 [facility] 11:31 PM CDT Specimen Anatomical Collection Method Collection Time Receive d Time (Source) Location / / Volume Laterality Blood (Blood, 08/02/2021 10:44 08/02/2021 Venous) PM CDT 10:50 PM CDT Juliana Stevens D.O. LAB BLOOD ADD-ON Performing Organization Address [facility] Phon e Number [facility]- [address] [place] [address] [place] [address] [address] (ABNORMAL) Hepatic Function Panel (08/02/2021 10:44 PM CDT) [facility] gist Method Time Signature Bilirubin, Total, [...] D.O. LAB BLOOD ADD-ON Performing Organization Address City/State/[facility] Phon e Number [facility]- [address] [place] [address] [place] [address] System [address] (ABNORMAL) Ammonia (08/02/2021 10:44 PM CDT) P athologist Signature Ammonia, P 84 (H) <=51 08/02/2021 [facility] mcmol/L 11:18 PM CDT Specimen Anatomical Collection Method Collection Time Receive d Time (Source) Location / / Volume Laterality Blood (Blood, 08/02/2021 10:44 08/02/2021 Venous) PM CDT 10:50 PM CDT Juliana Stevens D.O. LAB BLOOD NON ADD-ON Performing Organization Address City/State/ZIP Code Phon e Number [facility]- [address] [place] [address] [place] [address] (ABNORMAL) Basic Metabolic Panel (08/02/2021 10:44 [...] CDT eGFR-Black/Afri >90 >=60 08/02/2021 [facility] can Somali mL/min/BSA 11:31 PM CDT Comment: ----ADDITIONAL INFORMATION---- Estimated GFR calculated using the 2009 CKD_EPI creatinine equation. eGFR Non-Black/ >90 >=60 mL/min/BSA 08/02/2021 11:31 PM CDT [facility] Comment: ----ADDITIONAL INFORMATION---- Estimated GFR calculated using the 2009 CKD_EPI creatinine equation. Calcium, Total, P 8.7 8.6 - 10.0 mg/dL 08/02/2021 11:3 [address] PM CD[address] [facility] Glucose, P 135 70 - 140 mg/dL 08/02/2021 11:[address] [facility] Specimen Anatomical Collection Method Collection Time Receive d Time (Source) Location / / Volume Laterality Blood (Blood, 08/02/2021 10:44 08/02/2021 Venous) PM CDT 10:50 PM CDT Julaina Stevens D.O. LAB BLOOD ADD-ON Performing Organization Address City/[facility] Phon e Number [facility]- [address] [place] [address] [place] [address] [address] hCG (Human Chorionic Gonadotropin), Quantitative, (08/02/2021 10:44 PM CDT) athologist Signature HCG, <0.5 <5 IU/L 08/02/[address] [facility] Quantitative, 11:58 PM CDT , P Comment: [...] D.O. LAB BLOOD ADD-ON Performing Organization Address City/[facility]/ZIP Code Phon e Number [facility]- [address] [place] [address] [place] [address] (ABNORMAL) CBC with Differential, Blood (08/02/2021 10:44 PM CDT) [facility] gist Method Time Signature Hemoglobin 7.8 [...] Organization Address City/State/ZIP Code Phon e Number [facility]- [address] [place] [address] [place] [address] System in [place] [address] [place] [address] ECG 12 Lead (08/02/2021 10:31 PM CDT) P athologist Signature Ventricular Rate 86 BPM MUSE ECG/Min W[place] Interval 166 ms MUSE QRSD Interval 92 ms MUSE QT Interval 404 ms MUSE QTC Interval 484 ms MUSE P [place] 61 degrees MUSE R [place] 56 degrees MUSE T Wave [place] 32 degrees MUSE Specimen Anatomical Collection Method [...] 0545 (New Bag - Provider: Shyla Ojeda RSumaNSuma)0620 (Stopped - Provider: Shyla Ojeda R.N.) 12.5 [...] injection documented in this encounter Care Teams Core Cutter And Reamer Relationship Specialty Start Date End Date Elsewhere, Pcp PCP - General Family Medicine 03/10/20 11/30/21 Ervin Schroeder MD Referring Provider Family Medicine 03/24/[address] [place] [address] documented as of this encounter
--- OUTSIDE RECORDS SUMMARY | 2022-02-04 23:19 | XMS_ITS | Encounter Summary ---
:1990 Author Organization [facility] Address [address] [place] [address] Care Team Providers Name Role Phone Elsewhere, Pcp Primary Care Provider Unavailable Reason for Visit Reason Comments Epistaxis (Nose Bleed) Encounter Details Date Type Department Care Team Description 07/25/2021 Nurse Triage Department of Joshua Resendiz (Nose Medicine, [facility], RSumaNSuma Bleed) [facility], in [place], [place] [address] [phone] Social History Tobacco Use Types Packs/Day Years [...] do you attend bahai or Never 2021 mormonism services? 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 - 07/25/2021 3:08 AM CDT Chief Complaint [...] next 24 hours. Call your doctor (or [employer] ADMINISTRATOR/PA) when the office opens and make an [...] [2] direct pressure applied correctly Protocols used: [id number] documented in this encounter Plan of Treatment Upcoming Encounters Date Type Specialty Care Team Description Hospital Radiology [facility] 2 Encounter Tyrell Rodriguez, M.D. [address] [place] [phone] [facility] Gastroenterology and [facility] 2 Encounter Hepatology Tyrell Rodriguez, MCee. [address] [place] [phone] Surgery Gastroenterology and [facility] ESOPHAG OGASTRODUODENOSCOPY 2 Hepatology Tyrell Rodriguez, M.D. [address] [place] [phone] Telemedicine Transplant 2 Lab Laboratory Medicine Karin, Olinda Gannon M.D., Ph.D. [address] [place] [phone] Lab Laboratory Medicine [place], Olinda Gannon M.D., Ph.D. [address] [place] [phone] Office Visit Transplant Karin 2 Adeline Gannon M.D., Ph.D. [address] [place] [phone] Office Visit [facility], 2 Medicine Vernell Perez [address] [place] [phone] Appointment Radiology Matthew Jerome 2 YJoshuaB.B.SSuma, Lilian [address] [place] [phone] Appointment Gastroenterology and [place], 2 Hepatology Yue Burciaga M.D. [address] [place] [phone] Office Visit Gastroenterology and Matthew Jerome 2 Hepatology Elizabeth Rodriguez.B.B.SSuma, Lilian [address] [place] [phone] Appointment Radiology Matthew Jerome 2 Y M.B.B.SSuma, Lilian [address] [place] [phone] Scheduled Procedures Name Priority Associated Diagnoses Date/Time ESOPHAGOGASTRODUODENOSCOPY Cirrhosis Alc oholic (HCC) 02/10/2022 8:45 AM CDT Hypertension Portal (HCC) documented as of this encounter Visit Diagnoses Not on filedocumented in this encounter Care Teams Gravel Weigher Relationship Specialty Start Date End Date Elsewhere, Pcp PCP - General Family Medicine 03/10/20 11/30/21 Ervin Schroeder MD Referring Provider Family Medicine 03/24/[address] [place] [address] documented as of this encounter
--- OUTSIDE RECORDS SUMMARY | 2022-02-04 23:19 | XMS_ITS | Encounter Summary ---
:1990 Author Organization [facility] Address [address] [place] [address] Care Team Providers Name Role Phone Elsewhere, Pcp Primary Care Provider Unavailable Reason for Visit Reason Comments Altered Mental Status Urinary Tract Infection Encounter Details Date Type Department Care Team Description 07/19/2021 Nurse Triage Department of Catia Fagan [facility] Medicine, [place] R, R.N. Status; [facility], in [place], [address] Infection [place], [place] [address] [place] [phone] [place] [address] [phone] Social History Tobacco Use Types Packs/Day Years [...] you attend roman catholic or Never 2021 amish services? 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 - 07/19/2021 12:56 AM CDT Chief Complaint [...] got home from the Emergency Room in [place], patient is wondering if she can talk to GI. Spoke with Brian DAVIS SB he is going to give patient a callback with ERICA munoz. Present for: today Home cares tried: lactulose Calling to request: To speak to GI The recommended disposition is No disposition on file.. documented in this encounter Plan of Treatment Upcoming Encounters Date Type Specialty Care Team Description Hospital Radiology [facility] 2 Encounter Tyrell Rodriguez M.D. [address] [place] [phone] Hospital Gastroenterology and [place], Matthew 2 Encounter Hepatology Tyrell Rodriguez M.D. [address] [place] [phone] Surgery Gastroenterology and [facility], Matthew ESOPHAG OGASTRODUODENOSCOPY 2 Hepatology Tyrell Rodriguez M.D. [address] [place] [phone] Telemedicine Transplant 2 Lab Laboratory Medicine Olinda Frazier M.D., Ph.D. [address] [place] [phone] Lab Laboratory Medicine Olinda Frazier M.D., Ph.D. [address] [place] [phone] Office Visit Transplant Olinda Frazier M.D., Ph.D. [address] [place] [phone] Office Visit [facility], 2 Medicine Vernell Perez [address] [place] [phone] Appointment Radiology Lu[place]ell Matthew 2 Y, Tyrell, Lilian [address] [place] [phone] Appointment Gastroenterology and [place], 2 Hepatology Yue Burciaga M.D. [address] [place] [phone] Office Visit Gastroenterology and Matthew Jerome 2 Hepatology Vik RodriguezBLilian Bedolla [address] [place] [phone] Appointment Radiology Matthew Jerome 2 Tyrell Rodriguez M.D. [address] [place] [phone] Scheduled Procedures Name Priority Associated Diagnoses Date/Time ESOPHAGOGASTRODUODENOSCOPY Cirrhosis Alc oholic (HCC) 02/10/2022 8:45 AM CDT Hypertension Portal (HCC) documented as of this encounter Visit Diagnoses Not on filedocumented in this encounter Care Teams Ip Litigation Associate Relationship Specialty Start Date End Date Elsewhere, Pcp PCP - General Family Medicine 03/10/20 11/30/21 Ervin Schroeder MD Referring Provider Family Medicine 03/24/[address] [place] [phone] documented as of this encounter
--- OUTSIDE RECORDS SUMMARY | 2022-02-04 23:19 | XMS_ITS | Encounter Summary ---
:1990 Author Organization [facility] Address [address] [place] [address] Care Team Providers Name Role Phone Elsewhere, Pcp Primary Care Provider Unavailable Encounter Details Date Type Department Care Team Description 07/23/2021 Orders Only Pharmacy Prior Auth Maye Clements [phone] Social History Tobacco Use Types Packs/Day Years [...] do you attend temple or Never 2021 temple services? 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 Plan of Treatment Upcoming Encounters Date Type Specialty Care Team Description Hospital Radiology [facility] 2 Encounter Tyrell Rodriguez, MJules [address] [place] [phone] [facility] Gastroenterology and [facility] 2 Encounter Hepatology Tyrell Rodriguez, Lliian [address] [place] [phone] Surgery Gastroenterology and [facility] ESOPHAG OGASTRODUODENOSCOPY 2 Hepatology Tyrell Rodriguez, MJules [address] [place] [phone] Telemedicine Transplant 2 Lab Laboratory Medicine Karin, 2 Adeline Gannon M.D., Ph.D. [address] [place] [phone] Lab Laboratory Medicine [place] Olinda Gannon M.D., Ph.D. [address] [place] [phone] Office Visit Transplant KarinOlinda Adeline Gannon M.D., Ph.D. [address] [place] [phone] Office Visit [facility] [employer], 2 Medicine Vernell Perez [address] [place] [phone] Appointment Radiology Matthew Jerome 2 YJoshuaB.B.SSuma, Lilian [address] [place] [phone] Appointment Gastroenterology and [place] 2 Hepatology Yue Burciaga M.D. [address] [place] [phone] Office Visit Gastroenterology and Matthew Jerome 2 Hepatology Elizabeth Rodriguez.B.B.SSuma, MJules [address] [place] [phone] Appointment Radiology Matthew Jerome 2 Y M.B.B.SSuma, MJules [address] [place] [phone] Scheduled Procedures Name Priority Associated Diagnoses Date/Time ESOPHAGOGASTRODUODENOSCOPY Cirrhosis Alc oholic (HCC) 02/10/2022 8:45 AM CDT Hypertension Portal (HCC) documented as of this encounter Visit Diagnoses Not on filedocumented in this encounter Care Teams Cigarette Inspector Relationship Specialty Start Date End Date Elsewhere, Pcp PCP - General Family Medicine 03/10/20 11/30/21 Ervin Schroeder MD Referring Provider Family Medicine 03/24/[address] [place] [phone] documented as of this encounter
--- OUTSIDE RECORDS SUMMARY | 2022-02-04 23:20 | XMS_ITS | Encounter Summary ---
:1990 Author Organization [facility] Address [address] [place] [address] Care Team Providers Name Role Phone Elsewhere, Pcp Primary Care Provider Unavailable Encounter Details Date Type Department Care Team Description 07/08/2021 Clinical Communication Department of Kerry Naranjo Gastroenterology in [place], [place] M.S.N., R.N. 1025 [facility] 1025 [place] [address] [place], [place] [phone] Social History Tobacco Use Types Packs/Day [...] do you attend judaism or Never 2021 yarsani services? Do you [...] slept in a care home (including now)? 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 [address] [place] [phone] Lab Laboratory Medicine Karin, 2 Adeline Gannon M.D., Ph.D. [address] [place] [phone] Office Visit Transplant Karin, 2 Adeline Gannon M.D., Ph.D. [address] [place] [phone] Office Visit Community Internal [facility], 2 Medicine Vernell Perez [address] [place] [phone] Appointment Radiology Matthew Jerome 2 YJoshuaB.BLilian Bedolla [address] [place] [phone] Appointment Gastroenterology and Adrianne 2 Hepatology Yue Burciaga M.D. [address] [place] [phone] Office Visit Gastroenterology and Matthew Jerome 2 Hepatology Joshua RodriguezBSumaBSumaSLilian Moise [address] [place] [phone] Appointment Radiology Matthew Jerome 2 Y M.B.B.SLilian Moise [address] [place] [phone] Scheduled Procedures Name Priority Associated Diagnoses Date/Time ESOPHAGOGASTRODUODENOSCOPY Cirrhosis Alc oholic (HCC) 02/10/2022 8:45 AM CDT Hypertension Portal (HCC) documented as of this encounter Visit Diagnoses Not on filedocumented in this encounter Care Teams Bevel Gear Generator Operator Relationship Specialty Start Date End Date Elsewhere, Pcp PCP - General Family Medicine 03/10/20 11/30/21 Ervin Schroeder MD Referring Provider Family Medicine 03/24/[address] [place] [phone] documented as of this encounter
--- OUTSIDE RECORDS SUMMARY | 2022-02-04 23:20 | XMS_ITS | Encounter Summary ---
:1990 Author Organization [facility] Address [address] [place] [address] Care Team Providers Name Role Phone Elsewhere, Pcp Primary Care Provider Unavailable Reason for Referral Appointment Request (Routine) - Closed Specialty Diagnoses / Procedures Referred By Contact Refer red To Contact Diagnoses Cirrhosis Alcoholic (HCC) Ascites Anemia Macrocytic Thrombocytopenia (HCC) Deficiency Coagulation Acquired (HCC) Kerry Naranjo APRN, Procedures Prothrombin Time (PT) M.S.N., R.N. 10[address] [place] [phone] Referral ID Status Reason Start Date Expiration Date Visits Requ ested Visits Authorized [id number] Closed 07/07/2021 07/07/2022 1 K MACHINE OPERATOR Encounter Details Date Type Department Care Team Description 07/04/2021 Clinical Communication Department of Felicita Spicer Gastroenterology in [place], [place] [phone] 1025 [place] [address] Social History Tobacco Use Types Packs/Day Years [...] do you attend hinduism or Never 2021 confucianist services? 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 - 2021 11:19 AM BRICK MACHINE OPERATOR As stated below by Kerry Naranjo, the following is the plan for this patient and upcoming EGD. I have ordered Vitamin K 5 mg X 7 days, to take orally. Then follow up by repeat PT/INR on the 8th day. Please call pt and ask to get the lab at [facility] in [place]; this allows access to results. Past attempts [...] it was okay to leave detailed message. [employer] called to again discuss plan with patient and left a detailed message as outlined above. Informed her to expect a call from scheduling to set up the lab appointment. K MACHINE OPERATOR Telephone Encounter - Felicita Spicer L.P.N. - [...] had no further questions at this time. K MACHINE OPERATOR Telephone Encounter - Kerry Naranjo APRN, C.N.PSuma, M.S.N. - 07/08/2021 12:53 PM CST Her upper GI endoscopy is screening for the presence of varices. This is non urgent at this time as to the best of my knowledge she is not currently having any GI bleeding related to the presence of varices. August 12 would be okay Kerry Naranjo APRN, C.N.PSuma, M.S.N. K MACHINE OPERATOR Telephone Encounter - Mihaela Dudley - 07/08/2021 12:45 PM CST Pt called to schedule that EGD. First Available that we have is August 12 with Mac sedation. Pt claims this is not soon enough. [...] answer all her questions before the procedure. K MACHINE OPERATOR Telephone Encounter - Felicita Spicer L.P.N. - 07/08/2021 10:16 AM BRICK MACHINE OPERATOR Patient returned call and it was discussed [...] also report that she is currently at [facility] and inquired if [facility] had beds available. Informed her that I am unaware of hospital bed availability. She had no further questions at this time. K MACHINE OPERATOR Telephone Encounter - Felicita Spicer L.P.N. - [...] patient can pickup closer to procedure date. K MACHINE OPERATOR Telephone Encounter - Kerry Naranjo APRN C.N.P., M.S.N. - 07/07/2021 1:43 PM CST I have ordered Vitamin K 5 mg X 7 days, to take orally. Then follow up by repeat PT/INR on the 8th day. Please call pt and ask to get the lab at [facility] in [place]; this allows access to results. Past attempts to get lab work from outside PCP has failed. She should start to take the Vitamin K 10 days prior to the r/s EGD. I have also ordered the EGD/MAC, however the last EGD should of been put back in the que and not cancelled. Thank you, Kerry K MACHINE OPERATOR Telephone Encounter - Felicita Spicer L.P.N. - 07/04/2021 9:00 AM CST [employer] received a call this morning from endoscopy [...] the patient she does have several questions, loan underwriter informed her it may not be a bad idea to keep theappointment even if she has not had the EGD as this will allow her to ask her questions and get some answers. [employer] informed the patient that I would follow up regarding the plan moving forward as I see recommendations documented in the chart, however I do not see any specific orders. Informed her that Kerry is out of office today and should be back on Wednesday. K MACHINE OPERATOR documented in this encounter Plan of Treatment Upcoming Encounters Date Type Specialty Care Team Description Hospital Radiology Mousa, Matthew 2 Encounter YTyrell, Lilian [address] [place] [phone] Hospital Gastroenterology and [facility], Matthew 2 Encounter Hepatology YTyrell, Lilian [address] [place] [phone] Surgery Gastroenterology and [facility], Matthew ESOPHAG OGASTRODUODENOSCOPY 2 Hepatology YTyrell, Lilian [address] [place] [phone] Telemedicine Transplant 2 Lab Laboratory Medicine Karin, 2 Adeline Gannon M.D., Ph.D. [address] [place] [phone] Lab Laboratory Medicine Karin, 2 Adeline Gannon M.D., Ph.D. [address] [place] [phone] Office Visit Transplant Karin 2 Adeline Gannon M.D., Ph.D. [address] [place] [phone] Office Visit Community Internal [facility], 2 Medicine Vernell Perez [address] [place] [phone] Appointment Radiology Gachantell Matthew 2 Y, Tyrell, Lilian [address] [place] [phone] Appointment Gastroenterology and Adrianne, 2 Hepatology Yue Burciaga M.D. [address] [place] [address] Office Visit Gastroenterology and Matthew Jerome 2 Hepatology Tyrell Rodriguez M.D. 1025 [place] [address] Appointment Radiology LuisMatthew abdul 2 Tyrell Rodriguez M.D. 10[address] [place] [address] Scheduled Procedures Name Priority Associated Diagnoses Date/Time ESOPHAGOGASTRODUODENOSCOPY Cirrhosis Alc oholic (HCC) 02/10/2022 8:45 AM CDT Hypertension Portal (HCC) documented as of this encounter Results (ABNORMAL) Prothrombin Time (PT) (08/28/2021 5:01 PM CDT) [facility] gist Method Time Signature Prothrombin 25.9 [...] 6:01 Venous) CDT PM CDT Kerry Naranjo APRN M.S.N., R.N. LAB BLOOD ADD-ON Performing Organization Address City/State/ZIP Code Phon e Number [facility]- [address] [place] [address] [place] [address] System in [place] [address] documented in this encounter Visit Diagnoses Diagnosis Cirrhosis Alcoholic (HCC) - Primary Ascites Anemia Macrocytic Thrombocytopenia (HCC) Deficiency Coagulation Acquired (HCC) Cirrhosis Alcoholic (HCC) Hypertension Portal (HCC) documented in this encounter Additional Health Concerns Infection Onset Date Last Indicated Resolved Time COVID19 Pending 07/06/2021 07/06/2021 07/06/2021 11:34 AM BRICK MACHINE OPERATOR COVID19 Pending 07/25/2021 07/25/2021 07/25/2021 10:07 PM CDT documented as of this encounter Care Teams Manager Quality Systems Relationship Specialty Start Date End Date Elsewhere, Pcp PCP - General Family Medicine 03/10/20 11/30/21 Ervin Schroeder MD Referring Provider Family Medicine 03/24/211979 [address] [place] [address] documented as of this encounter
--- OUTSIDE RECORDS SUMMARY | 2022-02-04 23:20 | XMS_ITS | Encounter Summary ---
:1990 Author Organization [facility] Address [address] [place] [address] Care Team Providers Name Role Phone Elsewhere, Pcp Primary Care Provider Unavailable Encounter Details Date Type Department Care Team Description 07/06/2021 Orders Only Department of Gastroenterology Jennifer Fish, in [place], [facility] M.B.B.S. 1025 [facility] 1025 [place] [address] [place], [place] [phone] (Wo rk) Social History Tobacco Use [...] do you attend temple or Never 2021 episcopal services? 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 documented as of this encounter Plan of Treatment Upcoming Encounters Date Type Specialty Care Team Description Hospital Radiology [facility] 2 Encounter Vik RodriguezBGraeme, MJules [address] [place] [phone] Hospital Gastroenterology and [facility] 2 Encounter Hepatology Tyrell Rodriguez, Lilian [address] [place] [address] Surgery Gastroenterology and [facility] ESOPHAG OGASTRODUODENOSCOPY 2 Hepatology Vik RodriguezBGraeme, MJules [address] [place] [phone] Telemedicine Transplant 2 Lab Laboratory Medicine Karin, 2 Adeline Gannon M.D., Ph.D. [address] [place] [phone] Lab Laboratory Medicine Karin, Olinda Gannon M.D., Ph.D. [address] [place] [phone] Office Visit Transplant Karin, Olinda Gannon M.D., Ph.D. [address] [place] [phone] Office Visit [facility] Internal [facility], 2 Medicine Vernell Perez [address] [place] [phone] Appointment Radiology Matthew Jerome 2 YJoshuaB.BLilian Bedolla [address] [place] [phone] Appointment Gastroenterology and Adrianne 2 Hepatology Yeu Burciaga M.D. [address] [place] [phone] Office Visit Gastroenterology and Matthew Jerome 2 Hepatology Joshua RodriguezB.BLilian Bedolla [address] [place] [phone] Appointment Radiology Matthew Jerome 2 Y M.B.B.SLilian Moise [address] [place] [phone] Scheduled Procedures Name Priority Associated Diagnoses Date/Time ESOPHAGOGASTRODUODENOSCOPY Cirrhosis Alc oholic (HCC) 02/10/2022 8:45 AM CDT Hypertension Portal (HCC) documented as of this encounter Visit Diagnoses Not on filedocumented in this encounter Additional Health Concerns Infection Onset Date Last Indicated Resolved Time COVID19 Pending 07/06/2021 07/06/2021 07/06/2021 11:34 AM DIRECTOR OF SUPPLY CHAIN documented as of this encounter Care Teams Risk Assessment Analyst Relationship Specialty Start Date End Date Elsewhere, Pcp PCP - General Family Medicine 03/10/20 11/30/21 Ervin Schroeder MD Referring Provider Family Medicine 03/24/[address] [place] [phone] documented as of this encounter
--- OUTSIDE RECORDS SUMMARY | 2022-02-04 23:20 | XMS_ITS | Encounter Summary ---
:1990 Author Organization [facility] Address [address] [place] [address] Care Team Providers Name Role Phone Elsewhere, Pcp Primary Care Provider Unavailable Encounter Details Date Type Department Care Team Description 07/15/2021 Hospital Encounter Department of Kerry Naranjo is Alcoholic Laboratory Medicine S, SCAN COORDINATOR, (HCC) in Joshua PaniaguaSGabby, R.N. [address] [place] [phone] Social History Tobacco Use Types Packs/Day [...] do you attend druze or Never 2021 buddhism services? 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 1025 [place] [address] Hospital Gastroenterology and [facility] 2 Encounter Hepatology Tyrell Rodriguez M.D. 1025 [place] [address] Surgery Gastroenterology and [facility] ESOPHAG OGASTRODUODENOSCOPY 2 Hepatology YTyrell M.D. [address] [place] [phone] Telemedicine Transplant 2 Lab Laboratory Medicine Karin, 2 Adeline Gannon M.D., Ph.D. [address] [place] [phone] Lab Laboratory Medicine Karin, 2 Adeline Gannon M.D., Ph.D. [address] [place] [phone] Office Visit Transplant Karin, 2 Adeline Gannon M.D., Ph.D. [address] [place] [phone] Office [address] [facility], 2 Medicine Vernell Perez [address] [place] [phone] Appointment Radiology [facility] 2 YTyrell, Lilian [address] [place] [phone] Appointment Gastroenterology and Adrianne, 2 Hepatology Yue Burciaga M.D. [address] [place] [address] Office Visit Gastroenterology and Matthew Jerome 2 Hepatology Tyrell Rodriguez M.D. 1025 [place] [address] Appointment Radiology LuisMatthew abdul 2 Tyrell Rodriguez M.D. 1025 [place] [address] Scheduled Procedures Name Priority Associated [...] 10:49 07/16/2021 8:42 AM CDT AM CDT Kerry Naranjo APRN, M.S.N., R.N. LAB BLOOD NON ADD-ON Performing Organization Address City/[facility]/ZIP Code Phon e Number [facility] - 200 [place], [place] [address] [facility] [place] [address] Laboratories-[facility] 200 [facility] (ABNORMAL) Hepatic Function Panel (07/15/2021 10:49 AM [...] Address City/State/ZIP Code Phon e Number [facility]- [address] [place] [address] [place] [address] System in [place] [address] Basic Metabolic Panel (07/15/2021 10:49 [...] CDT eGFR-Black/Afric >90 >=60 07/15/2021 [place] an [place] mL/min/BSA 1:52 PM CDT Comment: ----ADDITIONAL INFORMATION---- [...] Organization Address City/State/ZIP Code Phon e Number [facility]- [address] [place] [address] [place] [address] System in [place] [address] (ABNORMAL) CBC with Differential, Blood (07/15/2021 10:49 AM CDT) Patholo gist Method Time Signature Hemoglobin 8.2 (L) [...] AM CDT 10:49 AM CDT Kerry Naranjo APRN, M.S.N., R.N. LAB BLOOD ADD-ON Performing Organization Address City/State/ZIP Code Phon e Number [facility]- [address] [place] [address] [facility] [place] [address] [address] documented in this encounter Visit Diagnoses Diagnosis Cirrhosis Alcoholic (HCC) Cirrhosis Alcoholic (HCC) Hypertension Portal (HCC) documented in this encounter Care Teams Pmp Relationship Specialty Start Date End Date Elsewhere, Pcp PCP - General Family Medicine 03/10/20 11/30/21 Ervin Schroeder MD Referring Provider Family Medicine 03/24/21[address] [place] [address] documented as of this encounter
--- OUTSIDE RECORDS SUMMARY | 2022-02-04 23:20 | XMS_ITS | Encounter Summary ---
:1990 Author Organization [facility] Address [address] [place] [address] Care Team Providers Name Role Phone Elsewhere, Pcp Primary Care Provider Unavailable Encounter Details Date Type Department Care Team Description 07/02/2021 Documentation Department of Gastroenterology Myke Fish, in [place], [facility] joe LewisB.B.S. 1025 [facility] [address] [place] [address] [place], [place] [phone] Social History Tobacco Use Types Packs/Day [...] do you attend zoroastrianism or Never 2021 nondenominational services? Do you [...] slept in a skilled nursing (including now)? Sex Assigned at Date Recorded Female 04/12/2021 7:39 PM ETIOLOGIST documented as of this encounter Progress Notes [...] prefer to be optimized prior to EGD. LOGIST documented in this encounter Plan of Treatment Upcoming Encounters Date Type Specialty Care Team Description [facility] Radiology Matthew Jerome 2 Encounter Tyrell Rodriguez, M.Jeri [address] [place] [address] Hospital Gastroenterology and [facility] 2 Encounter Hepatology Vik RodriguezBGraeme, MJules [address] [place] [address] Surgery Gastroenterology and [facility] ESOPHAG OGASTRODUODENOSCOPY 2 Hepatology Tyrell Rodriguez, Lilian [address] [place] [address] Telemedicine Transplant 2 Lab Laboratory Medicine Karin, 2 Adeline Gannon M.D., Ph.D. [address] [place] [phone] Lab Laboratory Medicine Karin, 2 Adeline Gannon M.D., Ph.D. [address] [place] [phone] Office Visit Transplant Karin, 2 Adeline Gannon M.D., Ph.D. [address] [place] [phone] Office Visit [facility] Internal [facility], 2 Medicine Vernell Perez [address] [place] [address] Appointment Radiology [facility] 2 YVikBGraeme, MJules [address] [place] [address] Appointment Gastroenterology and [place], 2 Hepatology Yue Burciaga M.D. [address] [place] [address] Office Visit Gastroenterology and Matthew Jerome 2 Hepatology Tyrell Rodriguez M.D. [address] [place] [address] Appointment Radiology Matthew Jerome 2 Tyrell Rodriguez M.D. [address] [place] [phone] Scheduled Procedures Name Priority Associated Diagnoses Date/Time ESOPHAGOGASTRODUODENOSCOPY Cirrhosis Alc oholic (HCC) 02/10/2022 8:45 AM CDT Hypertension Portal (HCC) documented as of this encounter Visit Diagnoses Not on filedocumented in this encounter Care Teams Homicide Squad Commanding Officer Relationship Specialty Start Date End Date Elsewhere, Pcp PCP - General Family Medicine 03/10/20 11/30/21 Ervin Schroeder MD Referring Provider Family Medicine 03/24/[address] [place] [address] documented as of this encounter
--- OUTSIDE RECORDS SUMMARY | 2022-02-04 23:20 | XMS_ITS | Encounter Summary ---
:1990 Author Organization [facility] Address [address] [place] [address] Care Team Providers Name Role Phone Elsewhere, Pcp Primary Care Provider Unavailable Encounter Details Date Type Department Care Team Description 07/06/2021 Documentation Department of Gastroenterology Myke Fish, in [place], [facility] joe LewisB.B.S 1025 [facility] [address] [place] [address] [place], [place] [phone] Social History Tobacco Use Types Packs/Day [...] do you attend worship or Never 2021 church services? 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 - 07/06/2021 8:04 AM CST This is [...] she should get evaluated for this first. COPTER DISPATCHER documented in this encounter Plan of Treatment Upcoming Encounters Date Type Specialty Care Team Description Hospital Radiology Matthew Jerome 2 Encounter YTyrell, Lilian [address] [place] [address] Hospital Gastroenterology and [facility], Matthew 2 Encounter Hepatology YTyrell M.D. [address] [place] [address] Surgery Gastroenterology and [facility] [place] ESOPHAG OGASTRODUODENOSCOPY 2 Hepatology YTyrell, Lilian [address] [place] [address] Telemedicine Transplant 2 Lab Laboratory Medicine Karin, 2 Adeline Gannon M.D., Ph.D. [address] [place] [phone] Lab Laboratory Medicine Karin, 2 Adeline Gannon M.D., Ph.D. [address] [place] [phone] Office Visit Transplant Karin, 2 Adeline Gannon M.D., Ph.D. [address] [place] [phone] Office Visit Community Internal [facility], 2 Medicine Vernell Perez [address] [place] [phone] Appointment Radiology [facility] 2 Y, Tyrell, Lilian [address] [place] [address] Appointment Gastroenterology and Adrianne, 2 Hepatology Yue Burciaga M.D. [address] [place] [address] Office Visit Gastroenterology and Matthew Jerome 2 Hepatology Tyrell Rodriguez M.D. [address] [place] [phone] Appointment Radiology LuisMatthew abdul 2 Joshua RodriguezBLilian Staples [address] [place] [phone] Scheduled Procedures Name Priority Associated Diagnoses Date/Time ESOPHAGOGASTRODUODENOSCOPY Cirrhosis Alc oholic (HCC) 02/10/2022 8:45 AM CDT Hypertension Portal (HCC) documented as of this encounter Visit Diagnoses Not on filedocumented in this encounter Care Teams Cnc Lathe Machinist Relationship Specialty Start Date End Date Elsewhere, Pcp PCP - General Family Medicine 03/10/20 11/30/21 Ervin Schroeder MD Referring Provider Family Medicine 03/24/[address] [place] [phone] documented as of this encounter
--- OUTSIDE RECORDS SUMMARY | 2022-02-04 23:20 | XMS_ITS | Encounter Summary ---
:1990 Author Organization [facility] Address [address] [place] [address] Care Team Providers Name Role Phone Elsewhere, Pcp Primary Care Provider Unavailable Encounter Details Date Type Department Care Team Description 06/30/2021 Hospital Encounter Department of [facility] Magaly Lucas ([facility]) Medicine, Specialty P.A.-C., M.S . [facility], in [place], [address] [place] [phone] [place], [place] [phone] (Work) [phone] Social History Tobacco Use Types Packs/Day Years [...] do you attend holiness or Never 2021 latter day services? 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 ER SHEET CLERK documented in this encounter Plan of Treatment Upcoming Encounters Date Type Specialty Care Team Description Hospital Radiology [facility] 2 Encounter Tyrell Rodriguez M.D. [address] [place] [phone] [facility] Gastroenterology and [facility] 2 Encounter Hepatology Tyrell Rodriguez M.D. [address] [place] [phone] Surgery Gastroenterology and [facility] ESOPHAG OGASTRODUODENOSCOPY 2 Hepatology Tyrell Rodriguez M.D. [address] [place] [phone] Telemedicine Transplant 2 Lab Laboratory Medicine [place], 2 Adeline Gannon M.D., Ph.D. [address] [place] [phone] Lab Laboratory Medicine Olinda Frazier M.D., Ph.D. [address] [place] [phone] Office Visit Transplant Olinda Frazier M.D., Ph.D. [address] [place] [phone] Office Visit [facility], 2 Medicine Vernell Perez [address] [facility] [place] [phone] Appointment Radiology Matthew Jerome 2 Y, M.B.B.SSuma, Lilian [address] [place] [phone] Appointment Gastroenterology and [place], 2 Hepatology Yue Burciaga M.D. [address] [place] [phone] Office Visit Gastroenterology and Matthew Jerome 2 Hepatology Joshua RodriguezB.BSumaSSuma, Lilian [address] [place] [phone] Appointment Radiology Matthew Jerome 2 Y M.B.B.SSuma, Lilian [address] [place] [phone] Scheduled Procedures Name Priority Associated Diagnoses Date/Time ESOPHAGOGASTRODUODENOSCOPY Cirrhosis Alc oholic (HCC) 02/10/2022 8:45 AM CDT Hypertension Portal (HCC) documented as of this encounter Procedures Procedure Name Priority Date/Time Associated Comments Diagnosis PROTHROMBIN TIME Routine 06/30/2021 2:27 PM Cirrhosis Alcoholi c Results for this (PT), P MASTER SHEET CLERK (HCC) procedure are i n the results section. documented in this encounter Results (ABNORMAL) Prothrombin Time (PT) (06/30/2021 2:27 PM MASTER SHEET CLERK) [facility] Method Time Signature Prothrombin 26.7 (H) 9.4 - 12.5 06/30/2021 MKTO Time, P sec 3:02 PM MASTER SHEET CLERK INR 2.3 0.9 - 1.1 06/30/2021 MKTO 3:02 PM MASTER SHEET CLERK Comment: ----ADDITIONAL INFORMATION---- Standard intensity warfarin therapeutic range: 2.0 to 3.0 ?? High intensity warfarin therapeutic rang e: 2.5 to 3.5 Specimen Anatomical Collection Method Collection Time Receive d Time (Source) Location / / Volume Laterality Blood (Blood, 06/30/2021 2:27 PM 06/30/19 2:46 Venous) MASTER SHEET CLERK PM MASTER SHEET CLERK Authorizing Provider Result Woodrow Molina P.A.-C. M.SSuma LAB BLOOD ADD-ON Performing Organization Address City/State/ZIP Code Phon e Number [facility]- [address] [place] [id number] [facility] [place] [address] [address] documented in this encounter Visit Diagnoses Diagnosis Cirrhosis Alcoholic (HCC) Cirrhosis Alcoholic (HCC) Hypertension Portal (HCC) documented in this encounter Additional Health Concerns Infection Onset Date Last Indicated Resolved Time COVID19 Pending 06/30/2021 06/30/2021 06/30/2021 10:43 PM MASTER SHEET CLERK documented as of this encounter Care Teams Renewals Specialist Relationship Specialty Start Date End Date Elsewhere, Pcp PCP - General Family Medicine 03/10/20 11/30/21 Ervin Schroeder MD Referring Provider Family Medicine 03/24/[address] [place] [address] documented as of this encounter
--- OUTSIDE RECORDS SUMMARY | 2022-02-04 23:20 | XMS_ITS | Encounter Summary ---
:1990 Author Organization [facility] Address [address] [place] [address] Care Team Providers Name Role Phone Elsewhere, Pcp Primary Care Provider Unavailable Reason for Visit Reason Comments Fever Fever during noc 100.4, Dr. Fish recommending eval for labs due to cirrhosis. Encounter Details Date Type Department Care Team Description 07/06/2021 Emergency [facility] Juan Dang Fever Of Unknown Origin Martin Holloway M.D. (Primary Dx) Emergency Department [address] [place] [phone] Social History Tobacco Use Types Packs/Day Years [...] do you attend mandaen or Never 2021 muslim services? Do you belong to any clubs or No 07/17/2021 organizations such as mandaen groups, unions, fraKeelr or athletic groups, or school groups? How [...] at Date Recorded Female 04/12/2021 7:39 PM SCREEN STRETCHER documented as of this encounter Last Filed Vital Signs Vital Sign Reading Time Taken Comments Blood Pressure 95/50 07/06/2021 1:30 PM SCREEN STRETCHER Pulse 87 07/06/2021 1:45 PM SCREEN STRETCHER Temperature 37.1 ??C (98.8 ??F) 07/06/2021 1:45 PM SCREEN STRETCHER Respiratory Rate 15 07/06/2021 1:45 PM SCREEN STRETCHER Oxygen Saturation 98% 07/06/2021 1:45 PM SCREEN STRETCHER Inhaled Oxygen Concentration - - Weight 55.1 kg (121 lb 7.6 oz) 07/06/2021 10:41 AM SCREEN STRETCHER Height 157.5 cm (5' 2) 07/06/2021 10:41 AM SCREEN STRETCHER Body Mass Index 22.22 07/06/2021 10:41 AM SCREEN STRETCHER documented in this encounter Discharge Instructions Discharge Juan Forrester M.D. - 07/06/2021 1:21 PM CST As per Dr. Fish you may take Tylenol as needed for pain, please limit to less than 2,000 mg a day Return to ER if symptoms persist, worsen, or any concerns Please follow all verbal instructions given to you Please follow-up with your primary care doctor or bad cloth checker Please read all attached documents at discharge It was a pleasure taking care of you today. We hope you feel better soon EN STRETCHER documented in this encounter Medications at Time [...] 6 (six) hours as needed for pain. Vitamin B-1, mononitrate, Take 100 mg by 0 202109/30/2021 100 mg tablet mouth every morning. Xifaxan 550 mg tablet Take 550 mg by 0 05/27/2021 07/21/2021 mouth 2 (two) times a day. phytonadione, vitamin K1, Take 1 tablet (5 mg 7 tablet 0 0 07/07/2021 07/14/2021 (MEPHYTON) 5 mg tablet total) by mouth daily for 7 doses. ergocalciferol (DRISDOL) Take 50,000 Units 0 03/0501/14/2022 50,000 Unit capsule by mouth once a week. Mondays vitamin A 3,000 mcg Take 1 capsule 50 capsule 0 04/18/2021 0 07/21/2021 (10,000 Unit) capsule (3,000 mcg total) by mouth 3 (three) times a week for 50 doses. documented as of this encounter ED Notes Juan Dang M.D. - 07/06/2021 12:15 PM CST SUBJECTIVE: CHIEF COMPLAINT/REASON FOR VISIT: Fever (Fever during noc 100.4, Dr. Fish recommending eval for labs due to cirrhosis.) HISTORY OF PRESENT ILLNESS: 30-year-old female patient with history of alcoholic liver cirrhosis referred to ED by bad cloth checker for subjective fever. Patient states she felt [...] medical card, plus non medical, last Social History Substance and Sexual Activity Alcohol [...] Negative Bilirubin Moderate (*) pH 7.0 Specific [place] 1.020 Urobilinogen 1.0 White Blood Cells None [...] PCR Undetected Respiratory Syncytial Virus, PCR Undetected [id number], PCR Undetected Specimen Source Swab, Nasopharynx BACTERIA / INES CULTURE, BLOOD Narrative: Specimen Information: Specimen ID: [id number] Specimen Source: Blood, Peripheral Draw Specimen Comment: Specimen Source Site: Blood Specimen Collection Start Date: 07/06/2021 11:15 AM Specimen Received Date: 07/06/2021 11:30 AM Specimen ID: [id number] Specimen Source: Blood, Peripheral Draw Specimen Comment: Specimen Source Site: Blood Specimen Collection Start Date: 07/06/2021 11:15 AM Specimen Received Date: 07/06/2021 11:30 AM Specimen ID: [id number] Specimen Source: Blood, Peripheral Draw Specimen Comment: Specimen Source Site: Blood Specimen Collection Start Date: 07/06/2021 11:15 AM Specimen Received Date: 07/06/2021 11:30 AM BACTERIA / INES CULTURE, BLOOD Narrative: Specimen Information: Specimen ID: [id number] Specimen Source: Blood, Peripheral Draw Specimen Comment: Specimen Source Site: Blood Specimen Collection Start Date: 07/06/2021 11:27 AM Specimen Received Date: 07/06/2021 11:30 AM Specimen ID: [id number] Specimen Source: Blood, Peripheral Draw Specimen Comment: Specimen Source Site: Blood Specimen Collection Start Date: 07/06/2021 11:30 AM Specimen Received Date: 07/06/2021 11:30 AM Specimen ID: [id number] Specimen Source: Blood, Peripheral Draw Specimen Comment: [...] alcoholic liver cirrhosis referred to ED by bad cloth checker for subjective fever. Denies cough, shortness of [...] is/are normal. Juan Dang M.D. 07/08/21 0041 EN STRETCHER documented in this encounter Plan of Treatment Upcoming Encounters Date Type Specialty Care Team Description Hospital Radiology Matthew Jerome 2 Encounter YTyrell, Lilian [address] [place] [phone] Hospital Gastroenterology and [facility], Matthew 2 Encounter Hepatology YTyrell M.D. [address] [place] [phone] Surgery Gastroenterology and [facility], Eleanor ESOPHAG OGASTRODUODENOSCOPY 2 Hepatology YTyrell M.D. [address] [place] [phone] Telemedicine Transplant 2 Lab Laboratory Medicine Karin, 2 Adeline Gannon M.D., Ph.D. [address] [place] [phone] Lab Laboratory Medicine Karin, 2 Adeline Gannon M.D., Ph.D. [address] [place] [phone] Office Visit Transplant Karin, 2 Adeline Gannon M.D., Ph.D. [address] [place] [phone] Office Visit [facility], 2 Medicine Vernell Perez [address] [place] [phone] Appointment Radiology [facility] 2 Y, Tyrell, Lilian [address] [place] [phone] Appointment Gastroenterology and Adrianne, 2 Hepatology Yue Burciaga M.D. [address] [place] [phone] Office Visit Gastroenterology and Matthew Jerome 2 Hepatology Tyrell Rodriguez M.D. [address] [place] [phone] Appointment Radiology LuisMatthew abdul 2 Tyrell Rodriguez M.D. [address] [place] [phone] Scheduled Procedures Name Priority Associated Diagnoses Date/Time ESOPHAGOGASTRODUODENOSCOPY Cirrhosis Alc oholic (HCC) 02/10/2022 8:45 AM CDT Hypertension Portal (HCC) documented as of this encounter Procedures Procedure Name Priority Date/Time Associated Comments Diagnosis BACTERIAL CULTURE, STAT 07/06/2021 11:59 Resul ts for AEROBIC + SUSC, AM SCREEN STRETCHER this procedu re URINE are in the results section. URINALYSIS WITH STAT 07/06/2021 11:54 Results for MICROSCOPIC AM SCREEN STRETCHER this procedure are in the results section. BACTERIA / INES STAT 07/06/2021 11:27 Resul ts for CULTURE, BLOOD AM SCREEN STRETCHER this procedur e are in the results section. LACTATE, B STAT 07/06/2021 11:21 Results for AM SCREEN STRETCHER this procedure are in the results section. MORPHOLOGY STAT 07/06/2021 11:21 Results for EVALUATION AM SCREEN STRETCHER this procedure are in the results section. CBC WITH STAT 07/06/2021 11:21 Results for DIFFERENTIAL, B AM SCREEN STRETCHER this procedu re are in the results section. COMPREHENSIVE STAT 07/06/2021 11:21 Results fo r METABOLIC PANEL, S/P AM SCREEN STRETCHER this pr ocedure are in the results section. BACTERIA / INES STAT 07/06/2021 11:15 Resul ts for CULTURE, BLOOD AM SCREEN STRETCHER this procedur e are in the results section. DX CHEST PORTABLE 1 RAD - Semiurgent 07/06/2021 10:58 Results for VIEW (Fast; most ED AM SCREEN STRETCHER this procedur e patients; some are in the inpatients) results section. SARS COV-2,INFLUENZA STAT 07/06/2021 10:51 Res ults for A/B,RSV,PCR, V AM SCREEN STRETCHER this procedur e are in the results section. documented in this encounter Results Bacterial Culture, Aerobic + Susc, Urine (07/06/2021 11:59 AM SCREEN STRETCHER) [facility] gist Method Time Signature Urine Culture No growth 07/07/2021 MKTO after 1 day 11:49 AM SCREEN STRETCHER of incubation. Specimen Anatomical Collection Method Collection Time Receive d Time (Source) Location / / Volume Laterality Urine (Urine, 07/06/2021 11:59 07/06/2021 Midstream) AM SCREEN STRETCHER 11:59 AM SCREEN STRETCHER Comment: Specimen Source Site: Urine Juan Dang M.D. LAB MICROBIOLOGY - GENERAL O RDERABLES Performing Organization Address City/State/ZIP Code Phon e Number [facility]- [address] [place] [address] [place] [address] System [address] (ABNORMAL) Urinalysis with Microscopic: Urine, Midstream (07/06/2021 11:54 AM SCREEN STRETCHER) [facility] Signature Source Urine, Urine, 07/06/2021 MKTO Midstream 12:04 PM SCREEN STRETCHER Clarity Clear Clear 07/06/2021 MKTO 12:04 PM SCREEN STRETCHER Color Priscilla 07/06/2021 MKTO 12:04 PM SCREEN STRETCHER Comment: ----REFERENCE VALUE---- Colorless Yellow Priscilla Blood Negative Negative 07/06/2021 12:04 PM SCREEN STRETCHER MKTO Nitrite Negative Negative 07/06/2021 12:04 PM SCREEN STRETCHER MKTO Leukocyte Esterase Trace (A) Negative 07/06/2021 12:[address] [facility] Protein Negative mg/dL 07/06/2021 12:04 PM SCREEN STRETCHER MKTO Comment: ----REFERENCE VALUE---- Negative Trace Glucose Negative Negative mg/dL 07/06/2021 12:04 PM SCREEN STRETCHER M KTO Ketone Negative Negative mg/dL 07/06/2021 12:04 PM SCREEN STRETCHER M KTO Bilirubin Moderate (A) Negative 07/06/2021 12:04 PM SCREEN STRETCHER MKT O pH 7.0 5.0 - 8.0 07/06/2021 12:04 PM SCREEN STRETCHER MKTO Specific [place] 1.020 1.001 - 1.035 07/06/2021 12:04 PM SCREEN STRETCHER MKTO Urobilinogen 1.0 0.2 - 1.0 mg/dL 07/06/2021 12:[address] [facility] White Blood Cells None Seen /hpf 07/06/2021 12:08 PM CS T MKTO Comment: ----REFERENCE VALUE---- Males: 0-3 Females: 0-10 Unknown: 0-10 Red Blood Cells None Seen 0 - 2 /hpf 07/06/2021 12:08 PM SCREEN STRETCHER MKTO Hyaline Casts 1-3 /lpf 07/06/2021 12:08 PM SCREEN STRETCHER MK TO Specimen Anatomical Collection Method Collection Time Receive d Time (Source) Location / / Volume Laterality Urine (Urine, 07/06/2021 11:54 07/06/2021 Midstream) AM SCREEN STRETCHER 11:59 AM SCREEN STRETCHER Juan Dang M.D. LAB URINE ORDERABLES Performing Organization Address [facility] Phon e Number [address] [address] [place] [address] Bacteria / Ines Culture, Blood #2 (07/06/2021 11:27 AM SCREEN STRETCHER) [facility] gist Method Time Signature Bacteria/Adriana No growth 07/11/2021 MKTO da Culture, after 5 12:05 PM SCREEN STRETCHER Blood day/s of incubation. Specimen (Source) Anatomical Collection Method Collection Time Re ceived Time Location / / Volume Laterality Blood (Blood, 07/06/2021 11:27 07/06/2021 Peripheral Draw) AM SCREEN STRETCHER 11:30 AM CS T Comment: Specimen Source Site: Blood Juan Dang M.D. LAB MICROBIOLOGY - GENERAL O RDERABLES Performing Organization Address [facility] Phon e Number [address] [address] [place] [address] [address] (ABNORMAL) Morphology Evaluation (07/06/2021 11:21 AM SCREEN STRETCHER) Patholo gist Method Time Signature RBC Morphology See Specific 07/06/2021 MKTO Findings 12:08 PM SCREEN STRETCHER PLT Estimate Decreased (A) Adequate 07/06/2021 MKTO 12:08 PM SCREEN STRETCHER Acanthocytes Marked (A) 07/06/2021 MKTO 12:08 PM SCREEN STRETCHER Polychromasia Slight (A) Not Seen 07/06/2021 MKTO 12:08 PM SCREEN STRETCHER Specimen Anatomical Collection Method Collection Time Receive d Time (Source) Location / / Volume Laterality Blood 07/06/2021 11:21 07/06/2021 AM SCREEN STRETCHER 11:30 AM SCREEN STRETCHER Juan Dang M.D. LAB BLOOD ADD-ON Performing Organization Address City/[facility] Phon e Number [address] [address] [place] [address] System [address] (ABNORMAL) Lactate, B (07/06/2021 11:21 AM SCREEN STRETCHER) P athologist Signature Lactate, B 2.4 (H) 0.5 - 2.2 07/06/2021 MKTO mmol/L 11:33 AM SCREEN STRETCHER Specimen Anatomical Collection Method Collection Time Receive d Time (Source) Location / / Volume Laterality Blood 07/06/2021 11:21 07/06/2021 AM SCREEN STRETCHER 11:30 AM SCREEN STRETCHER Juan Dang M.D. LAB BLOOD NON ADD-ON Performing Organization Address City/[facility] Phon e Number [address] [address] [place] [address] System in [address] (ABNORMAL) Comprehensive Metabolic Panel (07/06/2021 11:21 AM SCREEN STRETCHER) Analysis Performed At Patho logist Time Signature Potassium, P 4.1 3.6 - 5.2 07/06/2021 MKTO mmol/L 11:55 AM SCREEN STRETCHER Sodium, P 133 (L) 135 - 145 07/06/2021 MKTO mmol/L 11:55 AM SCREEN STRETCHER Chloride, P 100 98 - 107 07/06/2021 MKTO mmol/L 11:55 AM SCREEN STRETCHER Bicarbonate, P 21 (L) 22 - 29 07/06/2021 MKTO mmol/L 11:55 AM SCREEN STRETCHER Anion Gap, P 12 7 - 15 07/06/2021 MKTO 11:55 AM SCREEN STRETCHER BUN (Blood Urea 5 (L) 6 - 21 07/06/2021 MKTO Nitrogen), P mg/dL 11:55 AM SCREEN STRETCHER Creatinine 0.55 (L) 0.59 - 07/06/2021 MKTO 1.04 mg/dL 11:55 AM SCREEN STRETCHER eGFR-Black/Afri >90 >=60 07/06/2021 MKTO can [place] mL/min/BSA 11:55 AM SCREEN STRETCHER Comment: ----ADDITIONAL INFORMATION---- Estimated GFR calculated using the 2009 CKD_EPI creatinine equation. eGFR Non-Black/ >90 >=60 mL/min/BSA 07/06/2021 11:55 AM SCREEN STRETCHER MKTO Comment: ----ADDITIONAL INFORMATION---- Estimated GFR calculated using the 2009 CKD_EPI creatinine equation. Calcium, Total, P 9.2 8.6 - 10.0 mg/dL 07/06/2021 11:5 5 AM MKTO SCREEN STRETCHER Glucose, P 97 70 - 140 mg/dL 07/06/2021 11:55 AM MKTO SCREEN STRETCHER Protein, Total, P 5.8 (L) 6.3 - 7.9 g/dL 07/06/2021 11:55 AM MKTO SCREEN STRETCHER Albumin, P 3.5 3.5 - 5.0 g/dL 07/06/2021 11:55 AM MKTO SCREEN STRETCHER Aspartate Aminotransferase 71 (H) 8 - 43 U/L 07/06/2021 1 1:55 AM MKTO (AST), P SCREEN STRETCHER Alkaline Phosphatase, P 173 (H) 35 - 104 U/L 07/06/2021 11 :55 AM MKTO SCREEN STRETCHER Alanine Aminotransferase 26 7 - 45 U/L 07/06/2021 11: 55 AM MKTO (ALT), P SCREEN STRETCHER Bilirubin, Total, P 7.0 (H) <=1.2 mg/dL 07/06/2021 11:55 A M MKTO SCREEN STRETCHER Specimen Anatomical Collection Method Collection Time Receive d Time (Source) Location / / Volume Laterality Blood (Blood, 07/06/2021 11:21 07/06/2021 Venous) AM SCREEN STRETCHER 11:30 AM SCREEN STRETCHER Juan Dang M.D. LAB BLOOD ADD-ON Performing Organization Address City/State/ZIP Code Phon e Number [facility]- [address] [place] [phone] [place] [address] System [address] (ABNORMAL) CBC with Differential, Blood (07/06/2021 11:21 AM SCREEN STRETCHER) [facility] Method Time Signature Hemoglobin 7.3 (L) 11.6 - 07/06/2021 MKTO 15.0 g/dL 12:08 PM SCREEN STRETCHER Hematocrit 22.1 (L) 35.5 - 07/06/2021 MKTO 44.9 % 12:08 PM SCREEN STRETCHER Erythrocytes 2.02 (L) 3.92 - 07/06/2021 MKTO 5.13 12:08 PM SCREEN STRETCHER x10(12)/L MCV 109.4 (H) 78.2 - 07/06/2021 MKTO 97.9 fL 12:08 PM SCREEN STRETCHER RBC Distrib Width 13.6 12.2 - 07/06/2021 MKTO 16.1 % 12:08 PM SCREEN STRETCHER Platelet Count 66 (L) 157 - 371 07/06/2021 MKTO x10(9)/L 12:08 PM SCREEN STRETCHER Leukocytes 7.7 3.4 - 9.6 07/06/2021 MKTO x10(9)/L 12:08 PM SCREEN STRETCHER Neutrophils 5.72 1.56 - 07/06/2021 MKTO 6.45 12:08 PM SCREEN STRETCHER x10(9)/L Lymphocytes 1.14 0.95 - 07/06/2021 MKTO 3.07 12:08 PM SCREEN STRETCHER x10(9)/L Monocytes 0.73 0.26 - 07/06/2021 MKTO 0.81 12:08 PM SCREEN STRETCHER x10(9)/L Eosinophils 0.08 0.03 - 07/06/2021 MKTO 0.48 12:08 PM SCREEN STRETCHER x10(9)/L Basophils 0.05 0.01 - 07/06/2021 MKTO 0.08 12:08 PM SCREEN STRETCHER x10(9)/L Specimen Anatomical Collection Method Collection Time Receive d Time (Source) Location / / Volume Laterality Blood (Blood, 07/06/2021 11:21 07/06/2021 Venous) AM SCREEN STRETCHER 11:30 AM SCREEN STRETCHER Juan Dang M.D. LAB BLOOD ADD-ON Performing Organization Address [facility] Phon e Number [facility]- [address] [place] [address] [place] [address] System in [address] Bacteria / Ines Culture, Blood #1 (07/06/2021 11:15 AM SCREEN STRETCHER) [facility] gist Method Time Signature Bacteria/Adriana No growth 07/11/2021 [facility] da Culture, after 5 12:05 PM SCREEN STRETCHER Blood day/s of incubation. Specimen (Source) Anatomical Collection Method Collection Time Re ceived Time Location / / Volume Laterality Blood (Blood, 07/06/2021 11:15 07/06/2021 Peripheral Draw) AM SCREEN STRETCHER 11:30 AM CS T Comment: Specimen Source Site: Blood Juan Dang M.D. LAB MICROBIOLOGY - GENERAL O RDERABLES Performing Organization Address City/[facility] Phon e Number [facility]- [address] [place] [address] [place] [address] System in [address] DX Chest Portable 1 View (07/06/2021 10:58 AM SCREEN STRETCHER) Anatomical Region Laterality Modality Chest, Thoracic RST LOS, Thoracic ARZ LOS, Thoracic N/A Digital Radiography FLA LOS Specimen (Source) Anatomical Collection Method Collection Time Re ceived Time Location / / Volume Laterality 07/06/2021 11:00 AM SCREEN STRETCHER Impressions 07/06/2021 11:07 AM SCREEN STRETCHER No acute radiographic abnormalities are demonstrated. Narrative 07/06/2021 11:07 AM SCREEN STRETCHER EXAM: DX CHEST PORTABLE 1 VIEW COMPARISON: [...] A/B, RSV, PCR Symptomatic (07/06/2021 10:51 AM SCREEN STRETCHER) [facility] Method Time Signature Influenza A, Undetected Undetected 07/06/2021 MKTO PCR 11:34 AM SCREEN STRETCHER Comment: Influenza A viral RNA absent. Influenza B, PCR Undetected Undetected 07/06/2021 11:[address] MKTO Comment: Influenza B viral RNA absent. Respiratory Syncytial Virus, Undetected Undetected 022 11:34 AM SCREEN STRETCHER MKTO PCR Comment: RSV RNA absent. [id number], PCR Undetected Undetected 07/06/2021 11: 34 AM SCREEN STRETCHER MKTO Comment: SARS-CoV-2 RNA absent. ?? ----ADDITIONAL INFORMATION---- This RT-PCR test using the Xpert Xpress SARS-CoV-2/Flu/RSV assay ([employer] performed on the [employer] rt DX systems has received Emergency Use Authorization (EU A) by the U.S. Food and Drug Administration. Performanc e characteristics were verified by [facility] inic in a manner consistent with CLIA requirements . Fact sheets for this Emergency Use Autho rization (EUA) assay can be found at the following link s: For Healthcare Providers: https://www.fda.gov/media/455364/downloa d For Patients: https://www.fda.gov/media/845439/downloa d Specimen Source Swab, Nasopharynx 07/06/2021 10:55 AM SCREEN STRETCHER MKTO Specimen Anatomical Collection Method Collection Time Receive d Time (Source) Location / / Volume Laterality Varies 07/06/2021 10:51 07/06/2021 (Nasopharynx) AM SCREEN STRETCHER 10:55 AM SCREEN STRETCHER Juan Dang M.D. LAB MICROBIOLOGY - GENERAL O RDERABLES Performing Organization Address City/State/ZIP Code Phon e Number [facility]- [facility] [place] [address] [place] [address] System in [place] [address] [facility] documented in this encounter Visit Diagnoses Diagnosis Fever Of Unknown Origin - Primary Cirrhosis Alcoholic (HCC) Hypertension Portal (HCC) documented in this encounter Administered Medications Inactive Administered Medications - up to 3 most recent administrations Medication Order MAR Action Action Date Dose Rate Site fentaNYL injection 50 mcg Given 07/06/2021 11:32 AM SCREEN STRETCHER 50 mcg (SUBLIMAZE) 50 mcg, intravenous, Once, On 07/06/21 at 1110, For 1 dose sodium chloride 0.9 % injection 10 mL 10 mL, intravenous, As needed, line care, Starting on Wed07/06/21 at 1044, Peripheral Intravenous Catheter and Rapid [...] 12 hours scheduled, First dos e on Wed07/06/21 at 2100, Peripheral Intravenous Catheter and Rapi d Infusion Catheter, when no infusion to maintain patency documented in this encounter Active and Recently Administered Medications Times are shown in SCREEN STRETCHER. Scheduled Medication Order 07/04/2021 07/05/2021 07/06/2021 fentaNYL [...] As needed, line care , Starting on Wed07/06/21 at 1044, Peripheral Intravenous Catheter and Rapid Infusion Catheter, prior to blood sampling, post blood transfusion or post blood sampling sodium chloride 0.9 % injection 3 mL 3 mL, intravenous, As needed, line care, Starting on Wed07/06/21 at 1044, Prior to and following infusion and between multiple consecutive infusions: sodium chloride 0.9 % injection documented in this encounter Additional Health Concerns Infection Onset Date Last Indicated Resolved Time COVID19 Pending 07/06/2021 07/06/2021 07/06/2021 11:34 AM SCREEN STRETCHER documented as of this encounter Care Teams Industrial Maintenance Technician Relationship Specialty Start Date End Date Elsewhere, Pcp PCP - General Family Medicine 03/10/20 11/30/21 Ervin Schroeder MD Referring Provider Family Medicine 03/24/[address] [place] [id number] documented as of this encounter
--- OUTSIDE RECORDS SUMMARY | 2022-02-04 23:20 | XMS_ITS | Encounter Summary ---
:1990 Author Organization [facility] Address [address] [place] [address] Care Team Providers Name Role Phone Elsewhere, Pcp Primary Care Provider Unavailable Reason for Visit Auth/Cert Specialty Diagnoses / Procedures Referred By Contact Refer red To Contact Diagnoses Cirrhosis Alcoholic (HCC) Cirrhosis Alcoholic (HCC) [K70.30] Procedures ND EGD TRANSORAL DX ESOPHAGOGASTRODUODENOSCOPY Referral ID Status Reason Start Date Expiration Date Visits Requ ested Visits Authorized [id number] 1 1 Encounter Details Date Type Department Care Team Description 07/02/2021 Hospital Encounter Department of David Fish, Gastroenterology in [place] [place] [phone] Social History Tobacco Use Types Packs/Day Years [...] do you attend samaritan or Never 2021 samaritan services? 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 ciprofloxacin (CIPRO) 500 Take 1 tablet (500 30 tablet 11/11/2021 mg tabletIndications: mg total) by mouth [...] 07/21/2021 mouth 2 (two) times a day. ergocalciferol (DRISDOL) Take 50,000 Units 0 03/0501/14/2022 [...] [facility], Matthew 2 Encounter Tyrell Rodriguez M.D. [address] [place] [phone] Hospital Gastroenterology and [facility], Matthew 2 Encounter Hepatology Tyrell Rodriguez M.D. [address] [place] [phone] Surgery Gastroenterology and [facility], Matthew ESOPHAG OGASTRODUODENOSCOPY 2 Hepatology Tyrell Rodriguez M.D. [address] [place] [phone] Telemedicine Transplant 2 Lab Laboratory Medicine Karin, Olinda Gannon M.D., Ph.D. [address] [place] [phone] Lab Laboratory Medicine Olinda Frazier M.D., Ph.D. [address] [place] [phone] Office Visit Transplant Olinda Frazier M.D., Ph.D. [address] [place] [phone] Office Visit Community Internal [facility], 2 Medicine Vernell Perez [address] [place] [phone] Appointment Radiology [facility] Matthew 2 Y, Tyrell, Lilian [address] [place] [phone] Appointment Gastroenterology and [place], 2 Hepatology Yue Burciaga M.D. [address] [place] [phone] Office Visit Gastroenterology and Queenie Matthew 2 Hepatology Tyrell Rodriguez M.D. [address] [place] [phone] Appointment Radiology Matthew Jerome 2 Tyrell Rodriguez M.D. [address] [place] [phone] Scheduled Procedures Name Priority Associated Diagnoses Date/Time ESOPHAGOGASTRODUODENOSCOPY Cirrhosis Alc oholic (HCC) 02/10/2022 8:45 AM CDT Hypertension Portal (HCC) documented as of this encounter Visit Diagnoses Diagnosis Cirrhosis Alcoholic (HCC) - Primary Cirrhosis Alcoholic (HCC) Hypertension Portal (HCC) documented in this encounter Admitting Diagnoses Diagnosis Cirrhosis Alcoholic (HCC) documented in this encounter Care Teams Metal Sheet Roller Operator Relationship Specialty Start Date End Date Elsewhere, Pcp PCP - General Family Medicine 03/10/20 11/30/21 Ervin Schroeder MD Referring Provider Family Medicine 03/24/[address] [place] [phone] documented as of this encounter
--- OUTSIDE RECORDS SUMMARY | 2022-02-04 23:20 | XMS_ITS | Encounter Summary ---
:1990 Author Organization [facility] Address [address] [place] [address] Care Team Providers Name Role Phone Elsewhere, Pcp Primary Care Provider Unavailable Reason for Visit Reason Comments Outpatient Infusion Fresh frozen plasma Encounter Details Date Type Department Care Team Description 07/02/2021 Infusion Department of Infusion Kerry Naranjo, Jt hrombocytopenia (HCC) (Primary Dx); Therapy in [place], YARITZA, M.S.N., Cirrhos is Alcoholic (HCC); [place] R.N. Splenomegaly Acquired; [address] [facility] [address] 10[address] [facility] Hypertension Portal (HCC) [place] [address] [place], [place] [phone] Social History Tobacco Use Types Packs/Day [...] do you attend muslim or Never 2021 protestant services? Do you belong to any clubs or No 07/17/2021 organizations such as muslim groups, unions, fraMessage Missile or athletic groups, or school groups? How [...] Recorded Female 04/12/2021 7:39 PM DIRECTOR OF SALES documented as of this encounter Last Filed Vital Signs Vital Sign Reading Time Taken Comments Blood Pressure 95/53 07/02/2021 12:56 PM DIRECTOR OF SALES Pulse 91 07/02/2021 12:56 PM DIRECTOR OF SALES Temperature 38.2 ??C (100.8 ??F) 07/02/2021 12:56 PM DIRECTOR OF SALES Respiratory Rate 18 07/02/2021 12:56 PM DIRECTOR OF SALES Oxygen Saturation 95% 07/02/2021 12:56 PM DIRECTOR OF SALES Inhaled Oxygen Concentration - - Weight - - Height - - Body Mass Index - - documented in this encounter Plan of Treatment Upcoming Encounters Date Type Specialty Care Team Description [facility] Radiology Matthew Jerome 2 Encounter Tyrell Rodriguez, Lilian [address] [place] [phone] [facility] Gastroenterology and Matthew Jerome 2 Encounter Hepatology Tyrell Rodriguez M.D. [address] [place] [phone] Surgery Gastroenterology and Matthew Jerome ESOPHAG OGASTRODUODENOSCOPY 2 Hepatology Joshua RodriguezB.B.SLilian Moise [address] [place] [phone] Telemedicine Transplant 2 Lab Laboratory Medicine Karin, 2 Adeline Gannon M.D., Ph.D. [address] [place] [phone] Lab Laboratory Medicine Karin, 2 Adeline Gannon M.D., Ph.D. [address] [place] [phone] Office Visit Transplant Karin, Olinda Gannon M.D., Ph.D. [address] [place] [phone] Office Visit [facility], 2 Medicine Carlotta PerezC. [address] [place] [phone] Appointment Radiology Matthew Jerome 2 YElizabeth.B.B.SLilian Moise [address] [place] [phone] Appointment Gastroenterology and [place], 2 Hepatology Yue Burciaga M.D. [address] [place] [phone] Office Visit Gastroenterology and Matthew Jerome 2 Hepatology Joshua RodriguezB.B.SLilian Moise [address] [place] [phone] Appointment Radiology Matthew Jerome 2 YTyrell M.D. [address] [place] [phone] Pending Results Name Type Priority Associated Diagnoses Date/Ti me Prepare Fresh Blood Bank Routine Thrombocytopenia (HCC) 07/02/2021 10:14 AM Frozen Plasma : 2 Cirrhosis Alcoholic (HC C) DIRECTOR OF SALES Units Scheduled Procedures Name Priority Associated Diagnoses Date/Time ESOPHAGOGASTRODUODENOSCOPY Cirrhosis Alc oholic (HCC) 02/10/2022 8:45 AM CDT Hypertension Portal (HCC) documented as of this encounter Procedures Procedure Name Priority Date/Time Associated Diagnosis Comme nts PROTHROMBIN TIME Routine 07/02/2021 1:22 Cirrhosis Alcoholic R esults for this (PT), P PM DIRECTOR OF SALES (HCC) procedure are in Thrombocytopenia (HCC) the results Splenomegaly Acq uired section. Hypertension Portal (HCC) TRANSFUSE FRESH Routine 07/02/2021 11:59 Thrombocytopeni a (HCC) FROZEN PLASMA AM DIRECTOR OF SALES Cirrhosis Alcoholic (HCC) TRANSFUSE FRESH Routine 07/02/2021 10:57 Thrombocytopeni a (HCC) FROZEN PLASMA AM DIRECTOR OF SALES Cirrhosis Alcoholic (HCC) PREPARE FRESH Routine 07/02/2021 10:14 Thrombocytopeni a (HCC) FROZEN PLASMA AM DIRECTOR OF SALES Cirrhosis Alcoholic (HCC) documented in this encounter Results (ABNORMAL) Prothrombin Time (PT) (07/02/2021 1:22 PM DIRECTOR OF SALES) [facility] Method Time Signature Prothrombin 24.6 (H) 9.4 - 12.5 07/02/2021 MKTO Time, P sec 1:39 PM DIRECTOR OF SALES INR 2.2 0.9 - 1.1 07/02/2021 MKTO 1:39 PM DIRECTOR OF SALES Comment: ----ADDITIONAL INFORMATION---- Standard intensity warfarin therapeutic range: 2.0 to 3.0 ?? High intensity warfarin therapeutic rang e: 2.5 to 3.5 Specimen Anatomical Collection Method Collection Time Receive d Time (Source) Location / / Volume Laterality Blood (Blood, 07/02/2021 1:22 PM 07/03/19 1:31 Venous) DIRECTOR OF SALES PM DIRECTOR OF SALES Destiny Newsome APRN, R.N. LAB BLOOD ADD-ON Performing Organization Address City/State/ZIP Code Phon e Number [facility] [address] [place] [address] [facility] [address] System in [place] 1025 [facility] Transfuse Fresh Frozen Plasma :INR >2: Invasive proc scheduled; 180 mL/hr (07/02/2021 12:57 PM DIRECTOR OF SALES) Rachele Newsome APRN., R.N. BLOOD TRANSFUSION OR DERABLES Transfuse Fresh Frozen Plasma :INR >2: Invasive proc scheduled; 180 mL/hr, 2 Units (07/02/2021 12:57 PM DIRECTOR OF SALES) Rachele Newsome APRN., R.N. BLOOD TRANSFUSION OR DERABLES Transfuse Fresh Frozen Plasma :INR >2: Invasive proc scheduled; 180 mL/hr (07/02/2021 11:50 AM DIRECTOR OF SALES) Destiny Newsome APRN, R.N. BLOOD TRANSFUSION OR DERABLES documented in this encounter Visit Diagnoses Diagnosis Thrombocytopenia (HCC) - Primary Cirrhosis Alcoholic (HCC) Splenomegaly Acquired Hypertension Portal (HCC) Cirrhosis Alcoholic (HCC) Hypertension Portal (HCC) documented in this encounter Administered Medications Inactive Administered Medications - up to 3 most recent administrations Medication Order MAR Action Action Date Dose Rate Site acetaminophen tablet 650 mg Given 07/02/2021 1:04 PM DIRECTOR OF SALES 650 mg (TYLENOL) 650 mg, oral, Once as needed, other, blood products administration, Starting on Wed07/02/21 at 1013, For 1 dose documented in this encounter Care Teams Press Bucker Relationship Specialty Start Date End Date Elsewhere, Pcp PCP - General Family Medicine 03/10/20 11/30/21 Ervin Schroeder MD Referring Provider Family Medicine 03/24/[address] [place] [address] documented as of this encounter
--- OUTSIDE RECORDS SUMMARY | 2022-02-04 23:20 | XMS_ITS | Encounter Summary ---
:1990 Author Organization [facility] Address [address] [place] [address] Care Team Providers Name Role Phone Elsewhere, Pcp Primary Care Provider Unavailable Encounter Details Date Type Department Care Team Description 06/26/2021 Clinical Communication Department of Jesse Gastroenterology in [place], [place] PAshish, M.S. [address] [facility] 10[address] [place] [address] [place], [place] [phone] Social History Tobacco Use Types Packs/Day [...] do you attend mandaeism or Never 2021 cheondoism services? 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 - 06/26/2021 3:16 PM SMALL MACHINE BINDERY OPERATOR Could you put in an INR check for this patient? She will be having her EGD rescheduled per Dr. Paul.Last INR was 2.7 and has not been rechecked recently. If she has the procedure done in our soonest opening, she will need to have the INR drawn tomorrow (06-27-21) or Wednesday (06-30-21). Thank you for your help. Paty L MACHINE BINDERY OPERATOR documented in this encounter Plan of Treatment Upcoming Encounters Date Type Specialty Care Team Description [facility] Radiology Matthew Jerome 2 Encounter Tyrell Rodriguez M.D. [address] [place] [phone] [facility] Gastroenterology and Matthew Jerome 2 Encounter Hepatology Tyrell Rodriguez M.D. [address] [place] [phone] Surgery Gastroenterology and Matthew Jerome ESOPHAG OGASTRODUODENOSCOPY 2 Hepatology Joshua RodriguezBSumaBSumaSSuma, Lilian [address] [place] [address] Telemedicine Transplant 2 Lab Laboratory Medicine Karin, 2 Adeline Gannon M.D., Ph.D. [address] [place] [phone] Lab Laboratory Medicine Karin, 2 Adeline Gannon M.D., Ph.D. [address] [place] [phone] Office Visit Transplant Karin, 2 Adeline Gannon M.D., Ph.D. [address] [place] [phone] Office Visit [facility] Internal [facility], 2 Medicine Vernell Perez [address] [place] [phone] Appointment Radiology Matthew Jerome 2 Jennifer M.B.B.SSuma, Lilian [address] [place] [address] Appointment Gastroenterology and [place], 2 Hepatology Yue Burciaga M.D. [address] [place] [phone] Office Visit Gastroenterology and Matthew Jerome 2 Hepatology Y, Lilian Santillan [address] [place] [phone] Appointment Radiology Matthew Jerome 2 Y, Lilian Santillan [address] [place] [phone] Scheduled Procedures Name Priority Associated Diagnoses Date/Time ESOPHAGOGASTRODUODENOSCOPY Cirrhosis Alc oholic (HCC) 02/10/2022 8:45 AM CDT Hypertension Portal (HCC) documented as of this encounter Visit Diagnoses Not on filedocumented in this encounter Care Teams Typewriter Assembly And Parts Inspector Relationship Specialty Start Date End Date Elsewhere, Pcp PCP - General Family Medicine 03/10/20 11/30/21 Ervin Schroeder MD Referring Provider Family Medicine 03/24/[address] [place] [address] documented as of this encounter
--- OUTSIDE RECORDS SUMMARY | 2022-02-04 23:20 | XMS_ITS | Encounter Summary ---
:1990 Author Organization [facility] Address [address] [place] [address] Care Team Providers Name Role Phone Elsewhere, Pcp Primary Care Provider Unavailable Reason for Visit Reason Comments Fever Encounter Details Date Type Department Care Team Description 07/06/2021 Nurse Triage Department of [facility] Arabella Rosa, RSumaNuSma Fever Medicine in [place], [address] [place] [address] [address] [phone] [place] [address] Social History Tobacco Use Types [...] do you attend yarsanism or Never 2021 protestant services? 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 - 07/06/2021 2:57 AM CST Chief Complaint / Reason for Call Patient is a 30 y.o. female calling regarding Fever. Assessment Concern: 100.4 fever with stage 4 liver cirrhosis diagnosis. No other new symptoms. Present for: [place] somewhat feverish over past 24 hours, but more noticeable in past 2 hours. Home cares tried: None Calling to request: Advice The recommended disposition is Information or Advice Only Call. .Transferred for [facility] specialty. Patient unable to take OTCs and is unsure of urgency of fever with medical condition. L WORKER documented in this encounter Plan of Treatment Upcoming Encounters Date Type Specialty Care Team Description [facility] Radiology Matthew Jerome 2 Encounter Tyrell Rodriguez M.D. [address] [place] [phone] [facility] Gastroenterology and Matthew Jerome 2 Encounter Hepatology Tyrell Rodriguez M.D. [address] [place] [address] Surgery Gastroenterology and Matthew Jerome ESOPHAG OGASTRODUODENOSCOPY 2 Hepatology Joshua RodriguezBSumaBSumaSLilian Moise [address] [place] [address] Telemedicine Transplant 2 Lab Laboratory Medicine Karin, 2 Adeline Gannon M.D., Ph.D. [address] [place] [phone] Lab Laboratory Medicine Karin, 2 Adeline Gannon M.D., Ph.D. [address] [place] [phone] Office Visit Transplant Karin, 2 Adeline Gannon M.D., Ph.D. [address] [place] [phone] Office Visit [facility] Internal [facility], 2 Medicine Vernell Perez [address] [place] [phone] Appointment Radiology Matthew Jerome 2 Jennifer M.B.B.SLilian Moise [address] [place] [phone] Appointment Gastroenterology and [place], 2 Hepatology Yue Burciaga M.D. [address] [place] [phone] Office Visit Gastroenterology and Matthew Jerome 2 Hepatology Tyrell Rodriguez, Lilian [address] [place] [phone] Appointment Radiology Matthew Jerome 2 Tyrell Rodriguez M.D. [address] [place] [phone] Scheduled Procedures Name Priority Associated Diagnoses Date/Time ESOPHAGOGASTRODUODENOSCOPY Cirrhosis Alc oholic (HCC) 02/10/2022 8:45 AM CDT Hypertension Portal (HCC) documented as of this encounter Visit Diagnoses Not on filedocumented in this encounter Care Teams Tool And Die Engineer Relationship Specialty Start Date End Date Elsewhere, Pcp PCP - General Family Medicine 03/10/20 11/30/21 Ervin Schroeder MD Referring Provider Family Medicine 03/24/[address] [place] [phone] documented as of this encounter
--- OUTSIDE RECORDS SUMMARY | 2022-02-04 23:20 | XMS_ITS | Encounter Summary ---
:1990 Author Organization [facility] Address [address] [place] [address] Care Team Providers Name Role Phone Elsewhere, Pcp Primary Care Provider Unavailable Encounter Details Date Type Department Care Team Description 07/15/2021 Clinical Communication Department of Felicita Spicer Gastroenterology in [place], [place] [phone] [place] [address] ([facility]) [place] [address] Social History Tobacco Use Types Packs/Day [...] do you attend jainism or Never 2021 roman catholic services? Do you belong to any clubs or No 07/17/2021 organizations such as jainism groups, unions, fraBionanoplus or athletic groups, or school groups? 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 Consumer Experience Consultant informed her that we were aware of the labs from outside facilities and that verse writer had asked Kerry to review these outside labs last week and had not heard back regarding any recommendations. Informed her I would follow up with Kerry and get back to her. Consumer Experience Consultant discussed patient with Kerry Naranjo NP. Since patient is reported feeling more tired and weak lately the provider would like to repeat some labs. Provider requests patient has these completed at [facility] so that we are able to seen [...] best that they are done at a [place] [facility] so that Kerry can be alerted [...] shedid not received a blood transfusion at [facility]. Informed her that once the lab results were back Kerry would be able to best make a plan of care for her. Informed her she should keep her appointment with Kerry on Friday 07/21. documented in this encounter Plan of Treatment Upcoming Encounters Date Type Specialty Care Team Description [facility] Radiology [facility] 2 Encounter Tyrell Rodriguez M.D. [address] [place] [phone] [facility] Gastroenterology and [facility] 2 Encounter Hepatology Tyrell Rodriguez M.D. [address] [place] [phone] Surgery Gastroenterology and [facility] ESOPHAG OGASTRODUODENOSCOPY 2 Hepatology Tyrell Rodriguez M.D. [address] [place] [phone] Telemedicine Transplant 2 Lab Laboratory Medicine Karin, 2 Adeline Gannon M.D., Ph.D. [address] [place] [phone] Lab Laboratory Medicine Karin, 2 Adeline Gannon M.D., Ph.D. [address] [place] [phone] Office Visit Transplant Karin, 2 Adeline Gannon M.D., Ph.D. [address] [place] [phone] Office Visit [facility] Internal [facility], 2 Medicine Vernell Perez [address] [place] [phone] Appointment Radiology Matthew Jerome 2 Y, M.B.B.SSuma, Lilian [address] [place] [phone] Appointment Gastroenterology and [place], 2 Hepatology Yue Burciaga M.D. [address] [place] [phone] Office Visit Gastroenterology and Matthew Jerome 2 Hepatology Jennifer M.B.B.SSuma, Lilian [address] [place] [phone] Appointment Radiology Matthew Jerome 2 Y M.B.B.SSuma, Lilian [address] [place] [phone] Scheduled Procedures Name Priority Associated Diagnoses Date/Time ESOPHAGOGASTRODUODENOSCOPY Cirrhosis Alc oholic (HCC) 02/10/2022 8:45 AM CDT Hypertension Portal (HCC) documented as of this encounter Results (ABNORMAL) Hepatic Function Panel (07/15/2021 10:49 AM CDT) [facility] Method Time Signature Bilirubin, Total, P [...] AM CDT 12:57 PM CDT Joshua Newsome APRNSEric., R.N. LAB BLOOD ADD-ON Performing Organization Address City/State/ZIP Code Phon e Number [facility] [address] [place] [address] [place] [address] System in [place] [address] [place] [address] Basic Metabolic Panel (07/15/2021 10:49 AM CDT) [...] CDT eGFR-Black/Afric >90 >=60 07/15/2021 [place] an Samoan mL/min/BSA 1:52 PM CDT Comment: ----ADDITIONAL INFORMATION---- [...] e Number [facility]- [address] [place] [address] [place] [address] System in [place] [address] [facility] (ABNORMAL) CBC with Differential, Blood (07/15/2021 10:49 AM CDT) [facility] Method Time Signature Hemoglobin 8.2 (L) [...] Organization Address City/State/ZIP Code Phon e Number [address] [place] [address] [facility] [place] [address] [address] documented in this encounter Visit Diagnoses Diagnosis Cirrhosis Alcoholic (HCC) - Primary Cirrhosis Alcoholic (HCC) Hypertension Portal (HCC) documented in this encounter Additional Health Concerns Infection Onset Date Last Indicated Resolved Time COVID19 Pending 07/25/2021 07/25/2021 07/25/2021 10:07 PM CDT documented as of this encounter Care Teams Data Governance Consultant Relationship Specialty Start Date End Date Elsewhere, Pcp PCP - General Family Medicine 03/10/20 11/30/21 Ervin Schroeder MD Referring Provider Family Medicine 03/24/[address] [place] [phone] documented as of this encounter
--- OUTSIDE RECORDS SUMMARY | 2022-02-04 23:20 | XMS_ITS | Encounter Summary ---
:1990 Author Organization [facility] Address [address] [place] [address] Care Team Providers Name Role Phone Elsewhere, Pcp Primary Care Provider Unavailable Encounter Details Date Type Department Care Team Description 06/30/2021 Clinical Communication Department of Kerry Naranjo Gastroenterology in [place], [place] M.S.N., R.N. 1025 [facility] 1025 [place] [address] [place], [place] [phone] Social History Tobacco Use Types Packs/Day [...] do you attend christianity or Never 2021 congregation services? Do you [...] slept in a nursing home (including now)? 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 - 07/01/2021 4:12 PM CST Noted. D MEMBER Telephone Encounter - Ellen Stevens R.N. - 07/01/2021 4:11 PM CST Please see message related to when pt is scheduled for FFP pre-EGD. Thanks, Ellen Stevens, RN, OCN D MEMBER Telephone Encounter - Ruth Jeter - 07/01/2021 3:48 PM CST Pt has been scheduled 07/02 @ 1000. Pt is aware. D MEMBER Telephone Encounter - Ellen Stevens RGabby - [...] their department. Thanks, Ellen Stevens RN, OCN D MEMBER Telephone Encounter - Kerry Naranjo APRN, C.N.P., M.S.N. - 07/01/2021 11:47 AM CST Signed pended orders for transfusion of 2 units FFP with protocol and post transfusion INR D MEMBER Telephone Encounter - Felicita Spicer L.P.N. - [...] had no further questions at this time. D MEMBER Telephone Encounter - Kerry Naranjo APRN, C.N.P., M.S.N. - 06/30/2021 9:00 PM CST Patient [...] the above above arrangements. Thank you, Kerry D MEMBER documented in this encounter Plan of Treatment Upcoming Encounters Date Type Specialty Care Team Description [facility] Radiology [facility] 2 Encounter Tyrell Rodriguez M.D. [address] [place] [phone] [facility] Gastroenterology and [facility] 2 Encounter Hepatology Tyrell Rodriguez M.D. [address] [place] [address] [phone] Surgery Gastroenterology and [facility] ESOPHAG OGASTRODUODENOSCOPY 2 Hepatology Tyrell Rodriguez M.D. [address] [place] [phone] Telemedicine Transplant 2 Lab Laboratory Medicine Karin, 2 Adeline Gannon M.D., Ph.D. [address] [place] [address] [phone] Lab Laboratory Medicine Karin, 2 Adeline Gannon M.D., Ph.D. [address] [place] [address] [phone] Office Visit Transplant Karin, 2 Adeline Gannon M.D., Ph.D. [address] [place] [phone] Office Visit [facility] Internal [facility], 2 Medicine Vernell Perez [address] [place] [phone] Appointment Radiology Matthew Jerome 2 Y, M.B.B.SSuma, Lilian [address] [place] [phone] Appointment Gastroenterology and [place], 2 Hepatology Yue Burciaga M.D. [address] [place] [phone] Office Visit Gastroenterology and Matthew Jerome 2 Hepatology Jennifer M.B.B.SSuma, Lilian [address] [place] [phone] Appointment Radiology Matthew Jerome 2 Y M.B.B.SLilian Moise [address] [place] [phone] Scheduled Procedures Name Priority Associated Diagnoses Date/Time ESOPHAGOGASTRODUODENOSCOPY Cirrhosis Alc oholic (HCC) 02/10/2022 8:45 AM CDT Hypertension Portal (HCC) documented as of this encounter Results (ABNORMAL) Prothrombin Time (PT) (07/02/2021 1:22 PM BOARD MEMBER) [facility] Method Time Signature Prothrombin 24.6 (H) 9.4 - 12.5 07/02/2021 MKTO Time, P sec 1:39 PM BOARD MEMBER INR 2.2 0.9 - 1.1 07/02/2021 [facility] 1:39 PM BOARD MEMBER Comment: ----ADDITIONAL INFORMATION---- Standard intensity warfarin therapeutic range: 2.0 to 3.0 ?? High intensity warfarin therapeutic rang e: 2.5 to 3.5 Specimen Anatomical Collection Method Collection Time Receive d Time (Source) Location / / Volume Laterality Blood (Blood, 07/02/2021 1:22 PM 07/03/19 1:31 Venous) BOARD MEMBER PM BOARD MEMBER Rachele Newsome APRN., R.N. LAB BLOOD ADD-ON Performing Organization Address City/State/ZIP Code Phon e Number [facility]- [address] [place] [address] [place] [address] System [address] documented in this encounter Visit Diagnoses Diagnosis Cirrhosis Alcoholic (HCC) - Primary Thrombocytopenia (HCC) Splenomegaly Acquired Hypertension Portal (HCC) Cirrhosis Alcoholic (HCC) Hypertension Portal (HCC) documented in this encounter Additional Health Concerns Infection Onset Date Last Indicated Resolved Time COVID19 Pending 06/30/2021 06/30/2021 06/30/2021 10:43 PM BOARD MEMBER documented as of this encounter Care Teams Switch Operators Supervisor Relationship Specialty Start Date End Date Elsewhere, Pcp PCP - General Family Medicine 03/10/20 11/30/21 Ervin Schroeder MD Referring Provider Family Medicine 03/24/211979 [address] [place] [address] documented as of this encounter
--- OUTSIDE RECORDS SUMMARY | 2022-02-04 23:20 | XMS_ITS | Encounter Summary ---
:1990 Author Organization [facility] Address [address] [place] [address] Care Team Providers Name Role Phone Elsewhere, Pcp Primary Care Provider Unavailable Encounter Details Date Type Department Care Team Description 06/26/2021 Orders Only Department of [place], Cirrhosis Alco holic Gastroenterology in [facility], ([facility]) (P rimary Dx) [place], [place] P.Jim, M.S. 1025 [facility] 1025 [place] [address] [place], [place] [phone] Social History Tobacco Use Types Packs/Day [...] do you attend spiritism or Never 2021 alevism services? 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 [address] [place] [phone] [facility] Gastroenterology and [place], Matthew 2 Encounter Hepatology Tyrell Rodriguez M.D. [address] [place] [phone] Surgery Gastroenterology and [place], [place] ESOPHAG OGASTRODUODENOSCOPY 2 Hepatology Tyrell Rodriguez M.D. [address] [place] [phone] Telemedicine Transplant 2 Lab Laboratory Medicine Karin, 2 Adeline Gannon M.D., Ph.D. [address] [place] [phone] Lab Laboratory Medicine Olinda Frazier M.D., Ph.D. [address] [place] [phone] Office Visit Transplant Olinda Frazier M.D., Ph.D. [address] [place] [phone] Office Visit [facility] Internal [facility], 2 Medicine Vernell Perez [address] [place] [phone] Appointment Radiology Matthew Jerome 2 YVikBLilian Bedolla [address] [place] [phone] Appointment Gastroenterology and [place], 2 Hepatology Yue Burciaga M.D. [address] [place] [phone] Office Visit Gastroenterology and Matthew Jerome 2 Hepatology Joshua RodriguezBSumaBLilian Bedolla [address] [place] [phone] Appointment Radiology Matthew Jerome 2 YJoshuaBSumaB.SLilian Moise [address] [place] [phone] Scheduled Procedures Name Priority Associated Diagnoses Date/Time ESOPHAGOGASTRODUODENOSCOPY Cirrhosis Alc oholic (HCC) 02/10/2022 8:45 AM CDT Hypertension Portal (HCC) documented as of this encounter Results (ABNORMAL) Prothrombin Time (PT) (06/30/2021 2:27 PM MANAGER POOL) [facility] Method Time Signature Prothrombin 26.7 (H) 9.4 - 12.5 06/30/2021 MKTO Time, P sec 3:02 PM MANAGER POOL INR 2.3 0.9 - 1.1 06/30/2021 MKTO 3:02 PM MANAGER POOL Comment: ----ADDITIONAL INFORMATION---- Standard intensity warfarin therapeutic range: 2.0 to 3.0 ?? High intensity warfarin therapeutic rang e: 2.5 to 3.5 Specimen Anatomical Collection Method Collection Time Receive d Time (Source) Location / / Volume Laterality Blood (Blood, 06/30/2021 2:27 PM 06/30/19 2:46 Venous) MANAGER POOL PM MANAGER POOL Authorizing Provider Result Woodrow Molina P.A.-C. M.S. LAB BLOOD ADD-ON Performing Organization Address City/State/ZIP Code Phon e Number [facility]- [address] [place] [phone] [place] [address] [place] [address] System [address] documented in this encounter Visit Diagnoses Diagnosis Cirrhosis Alcoholic (HCC) - Primary Cirrhosis Alcoholic (HCC) Hypertension Portal (HCC) documented in this encounter Care Teams Mammalogist Relationship Specialty Start Date End Date Elsewhere, Pcp PCP - General Family Medicine 03/10/20 11/30/21 Ervin Schroeder MD Referring Provider Family Medicine 03/24/211979 [address] [place] [address] documented as of this encounter
--- OUTSIDE RECORDS SUMMARY | 2022-02-04 23:20 | XMS_ITS | Encounter Summary ---
:1990 Author Organization [facility] Address [address] [place] [address] Care Team Providers Name Role Phone Elsewhere, Pcp Primary Care Provider Unavailable Encounter Details Date Type Department Care Team Description 06/30/2021 Lab Department of Kerry Gee Enc ounter For Screening Medicine in [place], YARITZA, M.S.N ., R.N. For Other Viral Diseases [address] (COVID-19) [address] [place] [phone] (Wo rk) Social History Tobacco Use Types [...] you attend oriental orthodox or Never 2021 alevism services? 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 [address] [place] [phone] [facility] Gastroenterology and [facility], Matthew 2 Encounter Hepatology Tyrell Rodriguez M.D. [address] [place] [phone] Surgery Gastroenterology and [facility] [place] ESOPHAG OGASTRODUODENOSCOPY 2 Hepatology Tyrell Rodriguez M.D. [address] [place] [phone] Telemedicine Transplant 2 Lab Laboratory Medicine Karin, 2 Adeline Gannon M.D., Ph.D. [address] [place] [phone] Lab Laboratory Medicine Olinda Frazier M.D., Ph.D. [address] [place] [phone] Office Visit Transplant Olinda Frazier M.D., Ph.D. [address] [place] [phone] Office Visit [facility] Internal [facility] [place], 2 Medicine Vernell Perez [address] [place] [address] [phone] Appointment Radiology Matthew Jerome 2 YVikBLilian Bedolla [address] [place] [address] [phone] Appointment Gastroenterology and [place], 2 Hepatology Yue Burciaga M.D. [address] [place] [phone] Office Visit Gastroenterology and Matthew Jerome 2 Hepatology Vik RodriguezBLilian Bedolla [address] [place] [address] [phone] Appointment Radiology Matthew Jerome 2 YVikB.SLilian Moise [address] [place] [address] [phone] Scheduled Procedures Name Priority Associated Diagnoses Date/Time ESOPHAGOGASTRODUODENOSCOPY Cirrhosis Alc oholic (HCC) 02/10/2022 8:45 AM CDT Hypertension Portal (HCC) documented as of this encounter Procedures Procedure Name Priority Date/Time Associated Diagnosis Comme nts SARS CORONAVIRUS-2 Routine 06/30/2021 2:34 PM Encounter For Re sults for this RNA, V HAIR MIXER Screening For Other procedur e are in Viral Diseases the results (COVID-19) section. documented in this encounter Results SARS Coronavirus-2 RNA, V Asymptomatic (06/30/2021 2:34 PM HAIR MIXER) [facility] Method Time Signature SARS-CoV-2 Swab, 06/30/2021 MKTO Specimen Nasopharynx 10:42 PM Source HAIR MIXER SARS CoV-2 Undetected Undetected 06/30/2021 MKTO RNA, TMA 10:42 PM HAIR MIXER Comment: SARS-CoV-2 RNA absent. This result does not rule out COVID-19 in the patient, as the sensitivity of the test depends o n the timing of the specimen collection and the quality of the specim en. Result should be correlated with patient's history and clinical presentat ion. ----ADDITIONAL INFORMATION---- This molecular amplification test was pe rformed using the Aptima SARS-CoV-2 assay ([employer] on the [employer] tem under emergency use authorization (EUA) by the U.S. Food and Drug Administ ration. Fact sheets for this EUA assay can be fo und at the following links: For Healthcare Providers: https://www.fd a.gov/media/855519/download For Patients: https://www.fda.gov/media/ 032397/download Specimen Anatomical Collection Method Collection Time Receive d Time (Source) Location / / Volume Laterality Varies 06/30/2021 2:34 PM 5:12 (Nasopharynx) HAIR MIXER PM HAIR MIXER Elizabeth Newsome APRN.S.N., R.N. LAB MICROBIOLOGY - G ENERAL ORDERABLES Performing Organization Address City/State/ZIP Code Phon e Number [facility]- [address] [place] [phone] [place] [address] [place] [address] System in [address] documented in this encounter Visit Diagnoses Diagnosis Encounter For Screening For Other Viral Diseases (COVID-19) Cirrhosis Alcoholic (HCC) Hypertension Portal (HCC) documented in this encounter Additional Health Concerns Infection Onset Date Last Indicated Resolved Time COVID19 Pending 06/30/2021 06/30/2021 06/30/2021 10:43 PM HAIR MIXER documented as of this encounter Care Teams Appeals Analyst Relationship Specialty Start Date End Date Elsewhere, Pcp PCP - General Family Medicine 03/10/20 11/30/21 Ervin Schroeder MD Referring Provider Family Medicine 03/24/[address] [place] [phone] documented as of this encounter
--- OUTSIDE RECORDS SUMMARY | 2022-02-04 23:21 | XMS_ITS | Encounter Summary ---
:1990 Author Organization [facility] Address [address] [place] [address] Care Team Providers Name Role Phone Elsewhere, Pcp Primary Care Provider Unavailable Encounter Details Date Type Department Care Team Description 05/06/2021 Clinical Communication Department of Kerry Naranjo Gastroenterology in [place], [place] M.S.N., R.N. 1025 [facility] 1025 [place] [address] [place], [place] [phone] Social History Tobacco Use Types Packs/Day [...] do you attend cheondoism or Never 2021 religion services? 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 2 Encounter Tyrell Rodriguez, Lilian [address] [place] [phone] Hospital Gastroenterology and [facility] 2 Encounter Hepatology Tyrell Rodriguez, Lilian [address] [place] [phone] Surgery Gastroenterology and [facility] ESOPHAG OGASTRODUODENOSCOPY 2 Hepatology Tyrell Rodriguez, Lilian [address] [place] [phone] Telemedicine Transplant 2 Lab Laboratory Medicine Olinda Frazier M.D., Ph.D. [address] [place] [phone] Lab Laboratory Medicine Olinda Frazier M.D., Ph.D. [address] [place] [phone] Office Visit Transplant Karin 2 Adeline Gannon M.D., Ph.D. [address] [place] [phone] Office Visit [facility], 2 Medicine Vernell Perez 300 [place] [phone] Appointment Radiology Matthew Jerome 2 YJoshuaBSumaBLilian Bedolla 1025 [place] [phone] Appointment Gastroenterology and [place], 2 Hepatology Yue Burciaga M.D. [address] [place] [phone] Office Visit Gastroenterology and Matthew Jerome 2 Hepatology Joshua RodriguezBSumaBLilian Bedolla 1025 [place] [phone] Appointment Radiology Matthew Jerome 2 Y M.B.B.SLilian Moise [address] [place] [phone] Scheduled Procedures Name Priority Associated Diagnoses Date/Time ESOPHAGOGASTRODUODENOSCOPY Cirrhosis Alc oholic (HCC) 02/10/2022 8:45 AM CDT Hypertension Portal (HCC) documented as of this encounter Visit Diagnoses Not on filedocumented in this encounter Care Teams Financial Institution Manager Relationship Specialty Start Date End Date Elsewhere, Pcp PCP - General Family Medicine 03/10/20 11/30/21 Ervin Schroeder MD Referring Provider Family Medicine 03/24/[address] [place] [phone] documented as of this encounter
--- OUTSIDE RECORDS SUMMARY | 2022-02-04 23:21 | XMS_ITS | Encounter Summary ---
:1990 Author Organization [facility] Address [address] [place] [address] Care Team Providers Name Role Phone Elsewhere, Pcp Primary Care Provider Unavailable Encounter Details Date Type Department Care Team Description 05/23/2021 Clinical Communication Department of Felicita Spicer Gastroenterology in [place], [place] [phone] [place] [address] ([facility]) [place] [phone] Social History Tobacco Use Types Packs/Day [...] do you attend rastafarian or Never 2021 confucianism services? 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 - 05/23/2021 2:26 PM CST Received a message from the patient who states she is a patient of Kerry Naranjo for Cirrhosis and she has only seen her once so far. But she did have some questions as she has a cold and she was under the impression that she should avoid all ibuprofen and tylenol. Department Specialist did inform her that often withliver disease the recommendations are to avoid all NSAIDs but that tylenol can be used in moderationas needed. She states she was just wondering as lots of the cold medications do contain tylenol and she just wanted to be sure it was okay for her to take before using any of the OTC cold medications. She also asked data analyst report writer to pass along to Kerry as there [...] She wonders if this could have contributed. Department Specialist informed patient I would get all her questions to the provider and update her with her response regarding the cold medication. She had no further questions at this time. ING AND POLISHING WHEEL REPAIRER documented in this encounter Plan of Treatment Upcoming Encounters Date Type Specialty Care Team Description Hospital Radiology [facility] 2 Encounter Tyrell Rodriguez M.D. [address] [place] [phone] Hospital Gastroenterology and [place], Matthew 2 Encounter Hepatology Tyrell Rodriguez M.D. [address] [place] [phone] Surgery Gastroenterology and [place], [place] ESOPHAG OGASTRODUODENOSCOPY 2 Hepatology Tyrell Rodriguez M.D. [address] [place] [phone] Telemedicine Transplant 2 Lab Laboratory Medicine Karin, Olinda Gannon M.D., Ph.D. [address] [place] [phone] Lab Laboratory Medicine Olinda Frazier M.D., Ph.D. [address] [place] [phone] Office Visit Transplant Olinda Frazier M.D., Ph.D. [address] [place] [phone] Office Visit [facility], 2 Medicine Vernell Perez [address] [place] [phone] Appointment Radiology Matthew Jerome 2 Y, Lilian Santillan [address] [place] [phone] Appointment Gastroenterology and [place], 2 Hepatology Yue Burciaga M.D. [address] [place] [phone] Office Visit Gastroenterology and Matthew Jerome 2 Hepatology Joshua RodriguezBSumaBLilian Bedolla [address] [place] [phone] Appointment Radiology Matthew Jerome 2 Tyrell Rodriguez, Lilian [address] [place] [address] [phone] Scheduled Procedures Name Priority Associated Diagnoses Date/Time ESOPHAGOGASTRODUODENOSCOPY Cirrhosis Alc oholic (HCC) 02/10/2022 8:45 AM CDT Hypertension Portal (HCC) documented as of this encounter Visit Diagnoses Not on filedocumented in this encounter Care Teams Independent Sales Representative Relationship Specialty Start Date End Date Elsewhere, Pcp PCP - General Family Medicine 03/10/20 11/30/21 Ervin Schroeder MD Referring Provider Family Medicine 03/24/[address] [place] [phone] documented as of this encounter
--- OUTSIDE RECORDS SUMMARY | 2022-02-04 23:21 | XMS_ITS | Encounter Summary ---
:1990 Author Organization [facility] Address [address] [place] [address] Care Team Providers Name Role Phone Elsewhere, Pcp Primary Care Provider Unavailable Encounter Details Date Type Department Care Team Description 04/18/2021 Clinical Communication Department of Kerry Naranjo Gastroenterology in [place], [place] M.S.N., R.N. 1025 [facility] 1025 [place] [address] [place], [place] [phone] Social History Tobacco Use Types Packs/Day [...] do you attend restorationism or Never 2021 adventist services? 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 -EGD/MAC. MAC sedation as screening for varices with possible banding -GI follow-up one week after EGD AINABILITY COMMUNICATOR documented in this encounter Plan of Treatment Upcoming Encounters Date Type Specialty Care Team Description [facility] Radiology [facility] 2 Encounter Tyrell Rodriguez M.D. [address] [place] [phone] [facility] Gastroenterology and [facility] 2 Encounter Hepatology Tyrell Rodriguez M.D. [address] [place] [phone] Surgery Gastroenterology and [facility] ESOPHAG OGASTRODUODENOSCOPY 2 Hepatology Tyrell Rodriguez M.D. [address] [place] [phone] Telemedicine Transplant 2 Lab Laboratory Medicine Karin, 2 Adeline Gannon M.D., Ph.D. [address] [place] [phone] Lab Laboratory Medicine Karin, 2 Adeline Gannon M.D., Ph.D. [address] [place] [phone] Office Visit Transplant Karin, 2 Adeline Gannon M.D., Ph.D. [address] [place] [phone] Office Visit Community Internal [facility], 2 Medicine Vernell Perez [address] [place] [phone] Appointment Radiology Matthew Jerome 2 Y, M.B.B.SSuma, Lilian [address] [place] [phone] Appointment Gastroenterology and [place], 2 Hepatology Yue Burciaga M.D. [address] [place] [phone] Office Visit Gastroenterology and Matthew Jerome 2 Hepatology Jennifre M.B.B.SLilian Moise [address] [place] [phone] Appointment Radiology Matthew Jerome 2 Y M.B.B.SLilian Moise [address] [place] [phone] Scheduled Procedures Name Priority Associated Diagnoses Date/Time ESOPHAGOGASTRODUODENOSCOPY Cirrhosis Alc oholic (HCC) 02/10/2022 8:45 AM CDT Hypertension Portal (HCC) documented as of this encounter Visit Diagnoses Not on filedocumented in this encounter Care Teams Rental Clerk Tool And Equipment Relationship Specialty Start Date End Date Elsewhere, Pcp PCP - General Family Medicine 03/10/20 11/30/21 Ervin Schroeder MD Referring Provider Family Medicine 03/24/[address] [place] [phone] documented as of this encounter
--- OUTSIDE RECORDS SUMMARY | 2022-02-04 23:21 | XMS_ITS | Encounter Summary ---
:1990 Author Organization [facility] Address [address] [place] [address] Care Team Providers Name Role Phone Elsewhere, Pcp Primary Care Provider Unavailable Encounter Details Date Type Department Care Team Description 04/29/2021 Clinical Communication Department of Kerry Naranjo Gastroenterology in [place], [place] M.S.N., R.N. 1025 [facility] 1025 [place] [address] [place], [place] [phone] Social History Tobacco Use Types Packs/Day [...] do you attend nondenominational or Never 2021 presybeterian services? 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 - 04/29/2021 4:07 PM CST Notified patient of recommendations. Patient was very appreciative of the information. L FITTER Telephone Encounter - Kerry Naranjo APRN, C.NDayne, M.S.N. - 04/29/2021 4:03 PM CST Reviewed gabapentin in relation to hepatic/liver disease there are no adjustments needed (per Epocrates). It is ok for her to take. Kerry Naranjo APRN, C.N.PSuma, M.S.N. L FITTER Telephone Encounter - Ines Warren R.N. - [...] to taking gabapentin from a GI standpoint? L FITTER Telephone Encounter - Elizabet Corrales - 04/29/2021 2:41 PM CST Patient is requesting a call back in regards to her Gabapentin from Kerry Naranjo. Ok to leave a message. L FITTER documented in this encounter Plan of Treatment Upcoming Encounters Date Type Specialty Care Team Description Hospital Radiology [facility] 2 Encounter Tyrell Rodriguez, MJules [address] [place] [phone] Hospital Gastroenterology and [facility] 2 Encounter Hepatology Tyrell Rodriguez, Lilian [address] [place] [address] [phone] Surgery Gastroenterology and [facility] ESOPHAG OGASTRODUODENOSCOPY 2 Hepatology Tyrell Rodriguez, MJules [address] [place] [phone] Telemedicine Transplant 2 Lab Laboratory Medicine Karin, Olinda Gannon M.D., Ph.D. [address] [place] [address] [phone] Lab Laboratory Medicine Olinda Frazier M.D., Ph.D. [address] [place] [phone] Office Visit Transplant Karin, 2 Adeline Gannon M.D., Ph.D. [address] [place] [phone] Office Visit Community Internal Carlos, 2 Medicine Vernell Perez [address] [place] [phone] Appointment Radiology Matthew Jerome 2 Y, M.B.B.S., M.DSuma [address] [place] [phone] Appointment Gastroenterology and Adrianne 2 Hepatology Yue Burciaga M.D. [address] [place] [phone] Office Visit Gastroenterology and Matthew Jerome 2 Hepatology Jennifer M.B.B.S., M.DSuma 1025 [place] [phone] Appointment Radiology Matthew Jerome 2 Y M.B.B.S., MJules [address] [place] [phone] Scheduled Procedures Name Priority Associated Diagnoses Date/Time ESOPHAGOGASTRODUODENOSCOPY Cirrhosis Alc oholic (HCC) 02/10/2022 8:45 AM CDT Hypertension Portal (HCC) documented as of this encounter Visit Diagnoses Not on filedocumented in this encounter Care Teams Women'S Studies Lecturer Relationship Specialty Start Date End Date Elsewhere, Pcp PCP - General Family Medicine 03/10/20 11/30/21 Ervin Schroeder MD Referring Provider Family Medicine 03/24/[address] [place] [address] [phone] documented as of this encounter
--- OUTSIDE RECORDS SUMMARY | 2022-02-04 23:21 | XMS_ITS | Encounter Summary ---
:1990 Author Organization [facility] Address [address] [place] [address] Care Team Providers Name Role Phone Elsewhere, Pcp Primary Care Provider Unavailable Reason for Referral Outpatient (Routine) - Closed Specialty Diagnoses / Referred By Contact Referred To Procedures [facility] YARITZA, M.S.N., R.N. [address] [place] [address] Referral ID Status Reason Start Date Expiration Date Visits Requ ested Visits Authorized [id number] Closed 04/17/2021 04/17/2022 1 1 ER SEAM OPERATOR Reason for Visit Outpatient (Routine) - Closed Specialty Diagnoses / Referred By Contact Referred To Procedures Contact [facility] Hep[facility] YARITZA, M.S.N., R.N. 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 Splenomegaly Acquired; [facility] [facility] 1025 [facility] Deficiency Vitamin D; [place] [address] [place], [place] Deficiency Vitamin A; [phone] Hypertension Portal (HCC); [phone] Ascites; (Work) Jaundice; [phone] Malnutrition Pr otein-Calorie Unspecified (HCC) (Fax) Social [...] do you attend yarsani or Never 2021 methodist services? 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 documented as of this encounter Last Filed Vital Signs Vital Sign Reading Time Taken Comments Blood Pressure 100/60 04/17/2021 3:20 PM FELLER SEAM OPERATOR Pulse 80 04/17/2021 3:20 PM FELLER SEAM OPERATOR Temperature - - Respiratory Rate - - Oxygen Saturation - - Inhaled Oxygen Concentration - - Weight 50.3 kg (110 lb 14.3 oz) 04/17/2021 3:20 PM FELLER SEAM OPERATOR Height 157.5 cm (5' 2.01) 04/17/2021 3:20 PM FELLER SEAM OPERATOR Body Mass Index 20.28 04/17/2021 3:20 PM FELLER SEAM OPERATOR documented in this encounter Patient Instructions Patient InstructionsKerry Naranjo APRN C.N.P., M.S.N. - 04/17/2021 3:30 PM CST -EGD/MAC. 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 - 04/17/2021 3:30 PM CST Kerry Naranjo APRN, C.N.P., M.S.N. [address] [place] [phone] Patient Name: Catia Carias Date of : [...] primary care provider Dr. Ervin Schroeder, from [facility]; phone [phone], . She stateshe prescribed vitamin-D for GERD [...] for Zinc deficiency end of July or August 2021 #6 At risk for hepatocellular [...] 2021 Vitamin A deficient will need end july or August 2021 Vitamin-A deficiency: If Vitamin [...] She also was instructed to contact her [facility] to sign BIANKA as unable to [...] Naranjo APRN, Katrin.N.Shanita., M.S.N. Gastroenterology and Hepatology [facility] ER SEAM OPERATOR documented in this encounter Plan of Treatment Upcoming Encounters Date Type Specialty Care Team Description Hospital Radiology LuisMatthew abdul 2 Encounter YTyrell M.D. [address] [place] [phone] Hospital Gastroenterology and M[place], Matthew 2 Encounter Hepatology Tyrell Rodriguez, Lilian [address] [place] [phone] Surgery Gastroenterology and Mousa, Matthew ESOPHAG OGASTRODUODENOSCOPY 2 Hepatology Tyrell Rodriguez, Lilian [address] [place] [phone] Telemedicine Transplant 2 Lab Laboratory Medicine Karin, 2 Adeline Gannon M.D., Ph.D. [address] [place] [phone] Lab Laboratory Medicine Karin, 2 Adeline Gannon M.D., Ph.D. [address] [place] [address] [phone] Office Visit Transplant Karin, 2 Adeline Gannon M.D., Ph.D. [address] [place] [address] [phone] Office Visit Community Internal Deanov, 2 Medicine Vernell Perez [address] [place] [phone] Appointment Radiology [place], Matthew 2 Tyrell Rodriguez, Lilian [address] [place] [phone] Appointment Gastroenterology demian Silver, 2 Hepatology Yue Burciaga M.D. [address] [place] [phone] Office Visit Gastroenterology and Matthew Jerome 2 Hepatology Tyrell Rodriguez M.D. [address] [place] [phone] Appointment Radiology LuisMatthew abdul 2 Tyrell Rodriguez M.D. [address] [place] [address] [phone] Scheduled Procedures Name Priority Associated Diagnoses Date/Time [...] (HCC) documented in this encounter Care Teams Gmat Tutor Relationship Specialty Start Date End Date Elsewhere, Pcp PCP - General Family Medicine 03/10/20 11/30/21 Ervin Schroeder MD Referring Provider Family Medicine 03/24/[address] [place] [phone] documented as of this encounter
--- OUTSIDE RECORDS SUMMARY | 2022-02-04 23:21 | XMS_ITS | Encounter Summary ---
:1990 Author Organization [facility] Address [address] [place] [address] Care Team Providers Name Role Phone Elsewhere, Pcp Primary Care Provider Unavailable Encounter Details Date Type Department Care Team Description 06/24/2021 Lab Department of [facility] Sera Morgan, En counter For Medicine in [place], P.A.-C. Preprocedural Laboratory [address] Examination (COVID-19) 1025 [place] [address] [place] [address] [phone] Social History Tobacco Use Types Packs/Day Years [...] do you attend orthodoxy or Never 2021 gnosticism services? 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 [address] [place] [phone] [facility] Gastroenterology and [facility] [place] 2 Encounter Hepatology Tyrell Rodriguez M.D. [address] [place] [address] [phone] Surgery Gastroenterology and [facility] ESOPHAG OGASTRODUODENOSCOPY 2 Hepatology Tyrell Rodriguez, Lilian [address] [place] [phone] Telemedicine Transplant 2 Lab Laboratory Medicine Karin, 2 Adeline Gannon M.D., Ph.D. [address] [place] [phone] Lab Laboratory Medicine Karin, Olinda Gannon M.D., Ph.D. [address] [place] [phone] Office Visit Transplant Karin, Olinda Gannon M.D., Ph.D. [address] [place] [phone] Office Visit Community Internal [facility], 2 Medicine Vernell Perez [address] [place] [phone] Appointment Radiology Matthew Jerome 2 YJoshuaBSumaBLilian Bedolla [address] [place] [phone] Appointment Gastroenterology and Adrianne 2 Hepatology Yue Burciaga M.D. [address] [place] [phone] Office Visit Gastroenterology and Matthew Jerome 2 Hepatology Joshua RodriguezBSumaBSumaSLilian Moise [address] [place] [phone] Appointment Radiology Matthew Jerome 2 Y M.B.B.SLilian Moise [address] [place] [phone] Scheduled Procedures Name Priority Associated Diagnoses Date/Time ESOPHAGOGASTRODUODENOSCOPY Cirrhosis Alc oholic (HCC) 02/10/2022 8:45 AM CDT Hypertension Portal (HCC) documented as of this encounter Procedures Procedure Name Priority Date/Time Associated Diagnosis Comme nts SARS CORONAVIRUS-2 Routine 06/24/2021 3:50 PM Encounter For Re sults for this RNA, V EMBEDDED SOFTWARE ENGINEER Preprocedural procedure are in Laboratory Examination the r esults (COVID-19) section. documented in this encounter Results SARS Coronavirus-2 RNA, V Asymptomatic (06/24/2021 3:50 PM EMBEDDED SOFTWARE ENGINEER) [facility] Method Time Signature SARS-CoV-2 Swab, 06/24/2021 MKTO Specimen Nasopharynx 10:05 PM Source EMBEDDED SOFTWARE ENGINEER SARS CoV-2 Undetected Undetected 06/24/2021 MKTO RNA, TMA 10:05 PM EMBEDDED SOFTWARE ENGINEER Comment: SARS-CoV-2 RNA absent. This result does not rule out COVID-19 in the patient, as the sensitivity of the test depends o n the timing of the specimen collection and the quality of the specim en. Result should be correlated with patient's history and clinical presentat ion. ----ADDITIONAL INFORMATION---- This molecular amplification test was pe rformed using the Aptima SARS-CoV-2 assay ([employer] on the WorkWell Systemss tem under emergency use authorization (EUA) by the U.S. Food and Drug Administ ration. Fact sheets for this EUA assay can be fo und at the following links: For Healthcare Providers: https://www.UR Mobile a.gov/media/243176/download For Patients: https://www.fda.gov/media/ 547033/download Specimen Anatomical Collection Method Collection Time Receive d Time (Source) Location / / Volume Laterality Varies 06/24/2021 3:50 PM 5:05 (Nasopharynx) EMBEDDED SOFTWARE ENGINEER PM EMBEDDED SOFTWARE ENGINEER Sera Morgan P.A.-C. LAB MICROBIOLOGY - GENERAL O JANERAPREMA Performing Organization Address City/State/ZIP Code Phon e Number [facility]- [address] [place] [address] [place] [address] System [address] documented in this encounter Visit Diagnoses Diagnosis Encounter For Preprocedural Laboratory E xamination (COVID-19) Cirrhosis Alcoholic (HCC) Hypertension Portal (HCC) documented in this encounter Care Teams Financial Reserve Clerk Relationship Specialty Start Date End Date Elsewhere, Pcp PCP - General Family Medicine 03/10/20 11/30/21 Ervin Schroeder MD Referring Provider Family Medicine 03/24/[address] [place] [phone] documented as of this encounter
[2022-02-04] MEDS: HYDROmorphone 0.5 mg/0.5 ml inj IVP (23:22)
[2022-02-04] MEDS: ONDANSETRON 2 MG/ML inj 4 MG IVP (23:23)
--- OUTSIDE RECORDS SUMMARY | 2022-02-04 23:23 | XMS_ITS | Encounter Summary ---
:1990 Author Organization [facility] Address [address] [place] [address] Care Team Providers Name Role Phone Elsewhere, Pcp Primary Care Provider Unavailable Reason for Visit Reason Onset Date Comments Outpatient COVID-19 Testing 03/10/2020 Encounter Details Date Type Department Care Team Description 03/10/2020 External Outreach Department of Pedro Evans Infect ion Upper Internal Medicine in J, D.O. Respiratory (Primary [place], [place] [address] Dx) [address] [place], [place] [phone] Social History Tobacco Use Types Packs/Day Years [...] do you attend confucianism or Never 2021 hinduism services? 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 - 03/10/2020 3:17 PM CST Encounter created for the drive-through COVID-19 testing. CHISE DEVELOPMENT MANAGER documented in this encounter Plan of Treatment Upcoming Encounters Date Type Specialty Care Team Description [facility] Radiology [facility] [place] 2 Encounter Tyrell Rodriguez M.D. [address] [place] [phone] Hospital Gastroenterology and [place], Matthew 2 Encounter Hepatology Tyrell Rodriguez M.D. [address] [place] [address] [phone] Surgery Gastroenterology and [place], Matthew ESOPHAG OGASTRODUODENOSCOPY 2 Hepatology Tyrell Rodriguez M.D. [address] [place] [address] [phone] Telemedicine Transplant 2 Lab Laboratory Medicine Karin 2 Adeline Gannon M.D., Ph.D. [address] [place] [phone] Lab Laboratory Medicine Karin, 2 Adeline Gannon M.D., Ph.D. [address] [place] [address] [phone] Office Visit Transplant Karin, 2 Adeline Gannon M.D., Ph.D. [address] [place] [phone] Office Visit Community Internal [facility], 2 Medicine Vernell Perez [address] [place] [phone] Appointment Radiology Matthew Jerome 2 Y, M.B.B.SSuma, Lilian [address] [place] [phone] Appointment Gastroenterology and Adrianne, 2 Hepatology Yue Burciaga M.D. [address] [place] [address] [phone] Office Visit Gastroenterology and Matthew Jerome 2 Hepatology Jennifer M.B.B.SiLlian Moise [address] [place] [phone] Appointment Radiology Matthew Jerome 2 Y M.B.B.SLilian Moise [address] [place] [phone] Scheduled Procedures Name Priority Associated Diagnoses Date/Time ESOPHAGOGASTRODUODENOSCOPY Cirrhosis Alc oholic (HCC) 02/10/2022 8:45 AM CDT Hypertension Portal (HCC) documented as of this encounter Procedures Procedure Name Priority Date/Time Associated Diagnosis Comme nts SARS CORONAVIRUS-2 Routine 03/10/2020 4:10 PM Infection Upper Results for this RNA, V FRANCHISE DEVELOPMENT MANAGER Respiratory procedure are i n the results section. documented in this encounter Results SARS Coronavirus-2 RNA, V Symptomatic (03/10/2020 4:10 PM FRANCHISE DEVELOPMENT MANAGER) [facility] Method Time Signature SARS-CoV-2 Swab, 03/11/2020 MKTO Specimen Nasopharynx 12:38 PM Source FRANCHISE DEVELOPMENT MANAGER SARS CoV-2 Undetected Undetected 03/11/2020 MKTO RNA, TMA 12:38 PM FRANCHISE DEVELOPMENT MANAGER Comment: SARS-CoV-2 RNA absent. This result does not rule out COVID-19 in the patient, as the sensitivity of the test depends o n the timing of the specimen collection and the quality of the specim en. Result should be correlated with patient's history and clinical presentat ion. ----ADDITIONAL INFORMATION---- This test is performed using the Aptima SARS-CoV-2 assay ([employer] which has received Emergency Use Authori zation (EUA) by the U.S. Food and Drug Administration. Fact sheets for this Emergency Use Autho rization (EUA) assay can be found at the following links: For Healthcare Providers: https://www.fd a.gov/media/738650/download For Patients: https://www.fda.gov/media/ 146720/download Specimen Anatomical Collection Method Collection Time Receive d Time (Source) Location / / Volume Laterality Varies 03/10/2020 4:10 PM 0 (Nasopharynx) FRANCHISE DEVELOPMENT MANAGER 11:20 PM FRANCHISE DEVELOPMENT MANAGER Pedro Evans D.O. LAB MICROBIOLOGY - GENERAL O RDERABLES Performing Organization Address City/State/ZIP Code Phon e Number [facility] [address] [place] [address] [place] [address] System in [address] documented in this encounter Visit Diagnoses Diagnosis Infection Upper Respiratory - Primary Cirrhosis Alcoholic (HCC) Hypertension Portal (HCC) documented in this encounter Additional Health Concerns Infection Onset Date Last Indicated Resolved Time COVID19 Pending 03/10/2020 03/10/2020 03/11/2020 12:40 PM FRANCHISE DEVELOPMENT MANAGER documented as of this encounter Care Teams Acetylene Torch Operator Relationship Specialty Start Date End Date Elsewhere, Pcp PCP - General Family Medicine 03/10/20 11/30/21 documented as of this encounter
--- OUTSIDE RECORDS SUMMARY | 2022-02-04 23:23 | XMS_ITS | Encounter Summary ---
:1990 Author Organization [facility] Address [address] [place] [address] Care Team Providers Name Role Phone Elsewhere, Pcp Primary Care Provider Unavailable Encounter Details Date Type Department Care Team Description 03/10/2020 Admin Visit Department of Family Medicine, [address] [address] [facility] [phone] Social History Tobacco Use Types Packs/Day Years [...] do you attend baptism or Never 2021 taoist services? 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 documented as of this encounter Plan of Treatment Upcoming Encounters Date Type Specialty Care Team Description Hospital Radiology [facility] Matthew 2 Encounter Tyrell Rodriguez, Lilian [address] [place] [phone] Hospital Gastroenterology and [facility] Matthew 2 Encounter Hepatology Tyrell Rodriguez, Lilian [address] [place] [address] [phone] Surgery Gastroenterology and [facility] Matthew ESOPHAG OGASTRODUODENOSCOPY 2 Hepatology Tyrell Rodriguez, Lilian [address] [place] [address] [phone] Telemedicine Transplant 2 Lab Laboratory Medicine Olinda Frazier M.D., Ph.D. [address] [place] [address] [phone] Lab Laboratory Medicine Olinda Frazier M.D., Ph.D. [address] [place] [phone] Office Visit Transplant Olinda Frazier M.D., Ph.D. [address] [place] [phone] Office Visit Community Internal Carlos, 2 Solitario Perez P.A.-C. [address] [place] [phone] Appointment Radiology Matthew Jerome 2 Y, M.B.B.SSuma, MSumaDSuma [address] [place] [address] [phone] Appointment Gastroenterology and Adrianne 2 Hepatology Yue Burciaga M.D. [address] [place] [phone] Office Visit Gastroenterology and Matthew Jerome 2 Hepatology Jennifer M.B.B.S., M.Jeri [address] [place] [phone] Appointment Radiology Matthew Jerome 2 Y M.B.B.SSuma, MJules [address] [place] [phone] Scheduled Procedures Name Priority Associated Diagnoses Date/Time ESOPHAGOGASTRODUODENOSCOPY Cirrhosis Alc oholic (HCC) 02/10/2022 8:45 AM CDT Hypertension Portal (HCC) documented as of this encounter Visit Diagnoses Not on filedocumented in this encounter Additional Health Concerns Infection Onset Date Last Indicated Resolved Time COVID19 Pending 03/10/2020 03/10/2020 03/11/2020 12:40 PM BOARD LAYER documented as of this encounter Care Teams Sales Representative Graphic Art Relationship Specialty Start Date End Date Elsewhere, Pcp PCP - General Family Medicine 03/10/20 11/30/21 documented as of this encounter
--- OUTSIDE RECORDS SUMMARY | 2022-02-04 23:23 | XMS_ITS | Encounter Summary ---
:1990 Author Organization [facility] Address [address] [place] [address] Care Team Providers Name Role Phone Elsewhere, Pcp Primary Care Provider Unavailable Reason for Visit Reason Onset Date Comments Outpatient COVID-19 Testing 07/21/2020 Encounter Details Date Type Department Care Team Description 07/21/2020 External Outreach Department of Pedro Evans And Internal Medicine in J, D.O. (Suspected) Exposure [place], [place] [facility] To COVID-19 (Primary [address] [place], [place] Dx) [place] [id number] Social History Tobacco Use Types Packs/Day Years [...] do you attend advent or Never 2021 baptism services? Do you [...] Date Recorded Female 04/12/2021 7:39 PM [employer] documented as of this encounter Progress Notes [...] Team Description [facility] Radiology Matthew Jerome 2 Encounter Tyrell Rodriguez M.D. [address] [place] [address] [facility] Gastroenterology and Matthew Jerome 2 Encounter Hepatology Tyrell Rodriguez M.D. [address] [place] [address] Surgery Gastroenterology and Matthew Jerome ESOPHAG OGASTRODUODENOSCOPY 2 Hepatology Vik RodriguezBLilian Bedolla [address] [place] [address] Telemedicine Transplant 2 Lab Laboratory Medicine [place], 2 Adeline Gannon M.D., Ph.D. [address] [place] [phone] Lab Laboratory Medicine Kar[facility], 2 Adeline Gannon M.D., Ph.D. [address] [place] [phone] Office Visit Transplant [facility], 2 Adeline Gannno M.D., Ph.D. [address] [place] [phone] Office Visit Community Internal [facility], 2 Medicine Vernell Perez [address] [place] [phone] Appointment Radiology Matthew Jerome 2 Jennifer M.B.B.SLilian Moise [address] [place] [phone] Appointment Gastroenterology and [place], 2 Hepatology Yue Burciaga M.D. [address] [place] [phone] Office Visit Gastroenterology and Matthew Jerome 2 Hepatology Tyrell Rodriguez M.D. [address] [place] [phone] Appointment Radiology Matthew Jerome 2 Tyrell Rodriguez M.D. [address] [place] [phone] Scheduled Procedures Name Priority Associated Diagnoses Date/Time [...] documented as of this encounter Care Teams Child Adolescent Care Relationship Specialty Start Date End Date Elsewhere, Pcp PCP - General Family Medicine 03/10/20 11/30/21 documented as of this encounter
--- OUTSIDE RECORDS SUMMARY | 2022-02-04 23:23 | XMS_ITS | Encounter Summary ---
:1990 Author Organization [facility] Address [address] [place] [address] Care Team Providers Name Role Phone Elsewhere, Pcp Primary Care Provider Unavailable Reason for Referral Outpatient (Routine) - Closed Specialty Diagnoses / Referred By Contact Referred To Procedures [facility] YARITZA, M.S.N., R.N. [address] [place] [address] Referral ID Status Reason Start Date Expiration Date Visits Requ ested Visits Authorized [id number] Closed 03/15/2021 03/15/2022 1 1 ANICAL CAR CHECKER Reason for Visit Auth/Cert Specialty Diagnoses / Procedures Referred By Contact Refer red To Contact Diagnoses Change Mental Status Liver failure Procedures Referral ID Status Reason Start Date Expiration Date Visits Requ ested Visits Authorized [id number] 1 1 Encounter Details Date Type Department Care Team Description 03/12/2021 - Hospital Encounter [facility] Antwan Lazo, JeriOSuma [address] [place] [phone] Change Mental Status (Primary Dx); [facility] [address] [place] [phone] Cirrhosis Alcoholic ([facility]) [facility] Keerthi Cruz M.D. [address] [place] [phone] [address] [place] [address] Social History Tobacco Use Types [...] do you attend catholic or Never 2021 restorationist services? Do you [...] Date Recorded Female 04/12/2021 7:39 PM MECHANICAL CAR CHECKER documented as of this encounter Last Filed Vital Signs Vital Sign Reading Time Taken Comments Blood Pressure 114/84 03/24/2021 6:18 AM MECHANICAL CAR CHECKER Pulse 101 03/24/2021 6:18 AM MECHANICAL CAR CHECKER Temperature 37.5 ??C (99.5 ??F) 03/24/2021 6:18 AM MECHANICAL CAR CHECKER Respiratory Rate 16 03/23/2021 10:36 PM MECHANICAL CAR CHECKER Oxygen Saturation 97% 03/24/2021 6:18 AM MECHANICAL CAR CHECKER Inhaled Oxygen Concentration - - Weight 56.6 kg (124 lb 12.5 oz) 03/23/2021 6:35 AM MECHANICAL CAR CHECKER Height 157.5 cm (5' 2) 03/12/2021 6:15 AM MECHANICAL CAR CHECKER Body Mass Index 22.82 03/12/2021 6:15 AM MECHANICAL CAR CHECKER documented in this encounter Discharge Summaries Darian Thomas M.D., J.D. - 03/24/2021 8:11 AM CST DISCHARGE SUMMARY BRIEF OVERVIEW Discharge Hospital: Hospital: [facility] Discharge Provider: No att. providers found Primary Care Providers: Elsewhere, Pcp (General) No address on file Discharge Provider Team: [facility] ([facility] Primary Care Provider Phone Number: None Primary [...] on CT scan. Newly diagnosed PFO with bkvsu-pf-nact atrial shunt. Severe left atrial enlargement. Consider [...] consider having patient follow up with a deliverer merchandise in the outpatient setting. MEDICATIONS CHANGED DURING [...] staffed with Dr. Guzman. Darian Thomas MD, [facility] Family Medicine Residency ANICAL CAR CHECKER Associated attestation - Keerthi Guzman M.D. - 03/25/2021 7:48 AM MECHANICAL CAR CHECKER I saw the patient on the day [...] encounter Discharge Instructions Discharge Instr - Non [place] Follow-Hope Torres - 03/24/2021 10:30 AM MECHANICAL CAR CHECKER Post Hospital follow-up Dr. Schroeder on: Monday, March 26 at 9:[address] [address] Gastroenterology and Hepatology consult with Dr. Kerry Naranjo on: April 17, 2021 at 3:15pm [address] [address] ANICAL CAR CHECKER documented in this encounter Medications at Time [...] (HCC) ASSESSMENT / PLAN ASSESSMENT manager of disaster recovery participated in bedside team rounds with bedside nurse Hope LEROY and Dr. Guzman. Patient was cleared to discharge Julissa Russo. [facility] states there are no needs and no f/u needed for mental health as an outpatient. Dr. Guzman reports patient will be ready for discharge on 03-24-21. Patient will discharge to home on 03-24-21. S.O. will provide transportation at approximately 1200. PLAN 1. Care team reporting patient is expected to discharge home when medically stable. 2. There are no identified rn case management needs at this time. 3. commercial loan manager will assist as needed and requested. Nola Marcos R.N. 03/24/21 ANICAL CAR CHECKER Zenobia Dickson, Pharm.D., R.Ph. - 03/23/2021 4:13 [...] oral SBP prophylaxis Zenobia Dickson Pharm.D., R.Ph. ANICAL CAR CHECKER Darian Thomas M.D., J.D. - 03/23/2021 7:25 [...] staffed with Dr. Guzman. Darian Thomas MD [facility] Residency ANICAL CAR CHECKER Associated attestation - Keerthi Guzman M.D. - 03/23/2021 2:26 PM MECHANICAL CAR CHECKER I saw and evaluated the patient, participating [...] members who looks like her friend maritza ut now knows that it was not her. She did insist that she saw a nurse and college of education dean friend of hers, Stephanie. She says this [...] oral, Daily Given, 20 mg at 03/22 102 lactulose solution 30 g (CHRONULAC) 30 g, gastric tube, TID Given, 30 g at 03/22 102 melatonin tablet 6 mg 6 mg, oral, [...] oral, TID Given, 650 mg at 03/22 102 sodium chloride 0.9 % injection 5-15 mL 5-15 mL, IV, Q12H LAWRENCE Given, 10 mL at 03/22 103 spironolactone tablet 50 mg (ALDACTONE) 50 mg, [...] spent in counseling and coordination of care. ANICAL CAR CHECKER Associated attestation - Desire Ram M.B.B.S., M.D. - 03/25/2021 11:28 PM MECHANICAL CAR CHECKER I saw and evaluated the patient, participating in the judd portions of the service. I reviewed the JAN's note. I agree with the APPs findings and plan. Darian Thomas M.D., JJules - 03/22/2021 10:18 AM CST SUBJECTIVE INTERVAL [...] staffed with Dr. Guzman. Darian Thomas MD [facility] Residency ANICAL CAR CHECKER Associated attestation - Keerthi Guzman M.D. - 03/22/2021 3:19 PM MECHANICAL CAR CHECKER I saw and evaluated the patient, participating [...] 0.35* 0.33* Last 3 results Lab Units 03/21/21 0544 03/20/21223103/20/2140 03/19/21 1504 03/19/21 0739 SODIUM P [...] not displayed. Last 2 results Lab Units 03/21/2144 03/20/21223103/20/2140 03/19/21 0739 AST P U/L SEE COMMENT 56* < > 33 ALT P U/L 19 21 < > 10 SODIUM P mmol/L 141 [...] Monitoring/Evaluation Monitoring: Meals/Supplement Intake,Weight Status,Mental Status/Confusion,Nausea/Vomiting/Diarrhea,Pertinent Labs ANICAL CAR CHECKER Darian Thomas M.D., J.Jeri - 03/21/2021 12:16 PM CST SUBJECTIVE INTERVAL [...] considered holdable if she decides to leave [place] --cont. Zyprexa 5 mg q.h.s. p.r.n. per [...] staffed with Dr. Guzman. Darian Thomas MD [facility] Residency ANICAL CAR CHECKER Associated attestation - Keerthi Guzman M.D. - 03/21/2021 2:26 PM MECHANICAL CAR CHECKER I saw and evaluated the patient, participating [...] to accept patient to the [facility] once medically stable --per psych, patient is [...] staffed with Dr. Guzman. Darian Thomas MD [facility] Residency ANICAL CAR CHECKER Associated attestation - Keerthi Guzman M.D. - 03/20/2021 12:10 PM MECHANICAL CAR CHECKER I saw and evaluated the patient, participating [...] discharge: oral SBP prophylaxis Paco Shah, PharmD, [facility]. ANICAL CAR CHECKER Bernarda Manning APRN, C.N.P., D.N.P. - 03/19/2021 [...] what is wrong with her. She is veryhappy to be alive. She continues to take lactulose but shares that she had stopped taking it at homebefore admission. She is able to tell me her name, place, date, and 3 most recent presidents. She isable to explain why she is in the [...] last night. He says these woman working [employer] and would not have been in the [...] Daily Given, 5 mg at 03/19 135 xgukehhvp-thxaii-dotzdbryw 280-160-250 mg per packet 2 packet (PHOS-NAK) 2 packet, oral, Q4H While awake Given, 2 packet at 03/19 175 rifAXIMin tablet 550 mg (XIFAXAN) 550 mg, [...] oral, Daily Given, 100 mg at 03/19 09 PRN Medication Ordered Dose/Rate, Route, Frequency Last [...] considered holdable if she decides to leave [place] without a safe discharge plan in place. - Will continue to follow and reassess the need for inpatient psychiatry once she is more medically stable, and the encephalopathy has resolved. ?? ADMINISTRATIVE BILLING Total time is 35 minutes with greater than 25 minutes spent in counseling and coordination of care. ANICAL CAR CHECKER Darian Thomas M.D., J.D. - 03/19/2021 1:41 [...] considered holdable if she decides to leave [place] --cont. Lactulose --cont. Rifaximin #Alcoholic Cirrhosis #Abdominal [...] staffed with Dr. Guzman. Darian Thomas MD [facility] Residency ANICAL CAR CHECKER Associated attestation - Keerthi Guzman M.D. - 03/19/2021 7:11 PM MECHANICAL CAR CHECKER I saw and evaluated the patient, participating [...] at discharge: oral SBP prophylaxis Virginie Valerio, PharmSumaD., R.Ph. ANICAL CAR CHECKER Sofi Tomlin RDN, TALI - 03/18/2021 2:36 [...] not eaten yet this morning and encouraged sba underwriter to allow pt to rest as [...] 57 kg BMI (Calculated): 23 kg/m?? % [place] Body Weight: 108 % IBW Adjusted Body [...] EVALUATION: Nutrition Monitoring/Evaluation Monitoring: Meals/Supplement Intake,Nausea/Vomiting/Diarrhea,Pertinent Labs ANICAL CAR CHECKER Paco Shah, Pharm.D., R.Ph. - 03/18/2021 11:03 [...] oral SBP prophylaxis Virginie Valerio, Pharm.D., R.Ph. ANICAL CAR CHECKER Darian Thomas M.D., J.D. - 03/18/2021 10:08 [...] staffed with Dr. Valle. Darian Thomas MD [facility] ANICAL CAR CHECKER Associated attestation - Ulises Valle M.B.B.S. - 03/20/2021 12:12 PM MECHANICAL CAR CHECKER I saw and evaluated the patient, participating [...] -- Take 50 mg by mouth daily. ANICAL CAR CHECKER Junaid Cast M.D. - 03/17/2021 3:02 PM [...] M.B.B.S. Junaid Cast M.D. PGY1 [facility] [place] ANICAL CAR CHECKER Associated attestation - Ulises Valle M.B.B.S. - 03/18/2021 6:06 PM MECHANICAL CAR CHECKER I saw and evaluated the patient, participating [...] Procedure Component Value - Date/Time Gram Stain [[id number]] Collected: 03/12/21 1546 Lab Status: Final result Specimen: Peritoneal Fluid Updated: 03/12/21 1822 Gram Stain No organisms seen. White blood cells present. Stain performed on concentrated cytospin preparation. Bacterial Culture, Anaerobic + Susc [[id number]] Collected: 03/12/21 1546 Lab Status: In process Specimen: Peritoneal Fluid Updated: 03/12/21 1548 Bacterial Culture, Aerobic + Susc [[id number]] Collected: 03/12/21 1546 Lab Status: Preliminary result Specimen: Peritoneal Fluid Updated: 03/13/21 1129 Bacterial Culture, Aerobic + Susc No growth to date Bacterial Culture, Aerobic + Susc [[id number]] Collected: 03/12/21 1234 Lab Status: Preliminary result Specimen: Pleural Fluid, Right Updated: 03/13/21 1133 Bacterial Culture, Aerobic + Susc No growth to date Bacterial Culture, Anaerobic + Susc [[id number]] Collected: 03/12/21 1234 Lab Status: In process Specimen: Pleural Fluid, Right Updated: 03/12/21 1308 Gram Stain [[id number]] Collected: 03/12/21 1234 Lab Status: Final result Specimen: Pleural Fluid, Right Updated: 03/12/21 1646 Gram Stain No organisms seen. White blood cells present. Stain performed on concentrated cytospin preparation. Gram Stain [[id number]] Collected: 03/12/21 1234 Lab Status: No result Specimen: Pleural Fluid, Right SARS Coronavirus-2 RNA, V Symptomatic [[id number]] Collected: 03/12/21 1100 Lab Status: Final result [...] was performed using the Aptima SARS-CoV-2 assay ([employer] on the Suda System under emergency use authorization (EUA) by the U.S. Food and Drug Administration. Fact sheets for this EUA assay can be found at the following links: For Healthcare Providers: https://www.fda.gov/media/438047/download For Patients: https://www.fda.gov/media/796272/download Influenza A/B and RSV, PCR, Varies [[id number]] Collected: 03/12/21 1100 Lab Status: Final result Specimen: Varies from Nasopharynx Updated: 03/13/21 1155 Influenza A/B and RSV, Source Swab, Nasopharynx Influenza A, PCR Undetected Comment: Influenza A RNA absent. Influenza B, PCR Undetected Comment: Influenza B RNA absent. Respiratory Syncytial Virus, PCR Undetected Comment: RSV RNA absent. ----ADDITIONAL INFORMATION---- This test has been modified from the combustion engineer's instructions. Its performance characteristics were determined by [facility] in a manner consistent with CLIA requirements. This test has not been cleared or approved by the U.S. Food and Drug Administration. Bacteria / Raudel Culture, Blood #2 [[id number]] Collected: 03/12/21 0710 Lab Status: Preliminary result Specimen: Blood, Peripheral Draw Updated: 03/13/21 0805 Bacteria/Raudel Culture, Blood No growth to date. MRSA PCR, Nasal [[id number]] Collected: 03/12/21622 Lab Status: Final result Specimen: Swab from Nares Updated: 03/12/21 1050 MRSA Screen, Nasal by PCR Negative Hepatitis B Surface Antigen [[id number]] Collected: 03/12/21557 Lab Status: Final result Specimen: Blood, Peripheral Draw Updated: 03/12/21 0744 HBs Antigen, S Nonreactive Comment: Biotin has been identified by the combustion engineer as a potential interfering substance. Higher concentrations of biotin may be found in multivitamins, hair/nail supplements, and workout supplements. If the result does not match clinical observations, repeat testing after patient refrains from the use of supplements for at least 12 hours. Hepatitis B Core IgM Ab [[id number]] Collected: 03/12/21557 Lab Status: Final result Specimen: Blood, Peripheral Draw Updated: 03/13/21 09 HBc IgM Ab, S Negative Hepatitis A IgM Ab, Serum [[id number]] Collected: 03/12/21557 Lab Status: Final result Specimen: Blood, Peripheral Draw Updated: 03/13/21 0951 Hepatitis A IgM Ab, S Negative Comment: Result does not exclude the possibility of exposure to hepatitis A virus. Antibody level during early infection stage may be below the limit of detection of the assay. HCV Ab w/Reflex to HCV PCR, Serum [[id number]] Collected: 03/12/21557 Lab Status: Final result Specimen: Blood, Peripheral Draw Updated: 03/13/21 0925 HCV Ab, S Negative Comment: Hftzth-yw-vvmtfa ratio is <1.00. Bacteria / Raudel Culture, Blood #1 [[id number]] Collected: 03/12/21556 Lab Status: Preliminary result Specimen: [...] out given to hospitalist. Lizet Navarro M.D. ANICAL CAR CHECKER Ulises Valle M.B.B.S. - 03/16/2021 5:30 PM [...] more details on the specifics ofthe plan. ANICAL CAR CHECKER Kerry Naranjo APRN, C.N.P., M.S.N. - 03/16/2021 [...] Dr. Navarro ICU attending. Kerry Naranjo APRN, Katrin.N.Frances, M.S.N. ANICAL CAR CHECKER Daron Cochran, Pharm.D., R.Ph. - 03/16/2021 9:20 AM CST Pharmacist [...] Procedure Component Value - Date/Time Gram Stain [[id number]] Collected: 03/12/21 154 Lab Status: Final result Specimen: Peritoneal Fluid Updated: 03/12/211821 Gram Stain No organisms seen. White blood cells present. Stain performed on concentrated cytospin preparation. Bacterial Culture, Anaerobic + Susc [[id number]] Collected: 03/12/21 1546 Lab Status: Preliminary result Specimen: Peritoneal Fluid Updated: 03/14/21 0523 Bacterial Culture, Anaerobic No growth to date. Bacterial Culture, Aerobic + Susc [[id number]] Collected: 03/12/21 1546 Lab Status: Preliminary result Specimen: Peritoneal Fluid Updated: 03/13/21 1129 Bacterial Culture, Aerobic + Susc No growth to date Bacterial Culture, Aerobic + Susc [[id number]] Collected: 03/12/21 1234 Lab Status: Preliminary result Specimen: Pleural Fluid, Right Updated: 03/13/21 1133 Bacterial Culture, Aerobic + Susc No growth to date Bacterial Culture, Anaerobic + Susc [[id number]] Collected: 03/12/21 1234 Lab Status: Preliminary result Specimen: Pleural Fluid, Right Updated: 03/14/21 0523 Bacterial Culture, Anaerobic No growth to date. Gram Stain [[id number]] Collected: 03/12/21 123 Lab Status: Final result Specimen: Pleural Fluid, Right Updated: 03/12/21 1646 Gram Stain No organisms seen. White blood cells present. Stain performed on concentrated cytospin preparation. Gram Stain [[id number]] Collected: 03/12/21 123 Lab Status: No result Specimen: Pleural Fluid, Right SARS Coronavirus-2 RNA, V Symptomatic [[id number]] Collected: 03/12/21 1100 Lab Status: Final result [...] was performed using the Aptima SARS-CoV-2 assay ([employer] on the Suda System under emergency use authorization (EUA) by the U.S. Food and Drug Administration. Fact sheets for this EUA assay can be found at the following links: For Healthcare Providers: https://www.fda.gov/media/797381/download For Patients: https://www.fda.gov/media/459546/download Influenza A/B and RSV, PCR, Varies [[id number]] Collected: 03/12/21 1100 Lab Status: Final result Specimen: Varies from Nasopharynx Updated: 03/13/21 1155 Influenza A/B and RSV, Source Swab, Nasopharynx Influenza A, PCR Undetected Comment: Influenza A RNA absent. Influenza B, PCR Undetected Comment: Influenza B RNA absent. Respiratory Syncytial Virus, PCR Undetected Comment: RSV RNA absent. ----ADDITIONAL INFORMATION---- This test has been modified from the combustion engineer's instructions. Its performance characteristics were determined by [facility] in a manner consistent with CLIA requirements. This test has not been cleared or approved by the U.S. Food and Drug Administration. Bacteria / Raudel Culture, Blood #2 [[id number]] Collected: 03/12/21 0710 Lab Status: Preliminary result Specimen: Blood, Peripheral Draw Updated: 03/16/21 0805 Bacteria/Raudel Culture, Blood No growth to date. MRSA PCR, Nasal [[id number]] Collected: 03/12/21 0623 Lab Status: Final result Specimen: Swab from Nares Updated: 03/12/21 1050 MRSA Screen, Nasal by PCR Negative Hepatitis B Surface Antigen [[id number]] Collected: 03/12/21557 Lab Status: Final result Specimen: Blood, Peripheral Draw Updated: 03/12/21 0744 HBs Antigen, S Nonreactive Comment: Biotin has been identified by the combustion engineer as a potential interfering substance. Higher concentrations of biotin may be found in multivitamins, hair/nail supplements, and workout supplements. If the result does not match clinical observations, repeat testing after patient refrains from the use of supplements for at least 12 hours. Hepatitis B Core IgM Ab [[id number]] Collected: 03/12/21557 Lab Status: Final result Specimen: Blood, Peripheral Draw Updated: 03/13/21911 HBc IgM Ab, S Negative Hepatitis A IgM Ab, Serum [[id number]] Collected: 03/12/21557 Lab Status: Final result Specimen: Blood, Peripheral Draw Updated: 03/13/21950 Hepatitis A IgM Ab, S Negative Comment: Result does not exclude the possibility of exposure to hepatitis A virus. Antibody level during early infection stage may be below the limit of detection of the assay. HCV Ab w/Reflex to HCV PCR, Serum [[id number]] Collected: 03/12/21 0558 Lab Status: Final result Specimen: Blood, Peripheral Draw Updated: 03/13/21 0925 HCV Ab, S Negative Comment: Tdmpoi-en-byksik ratio is <1.00. Bacteria / Raudel Culture, Blood #1 [[id number]] Collected: 03/12/21 0557 Lab Status: Preliminary result [...] oral SBP prophylaxis Virginie Valerio, Pharm.D., R.Ph. ANICAL CAR CHECKER Lizet Navarro M.D. - 03/15/2021 1:19 PM [...] Procedure Component Value - Date/Time Gram Stain [[id number]] Collected: 03/12/21 1546 Lab Status: Final result Specimen: Peritoneal Fluid Updated: 03/12/21 1822 Gram Stain No organisms seen. White blood cells present. Stain performed on concentrated cytospin preparation. Bacterial Culture, Anaerobic + Susc [[id number]] Collected: 03/12/21 1546 Lab Status: In process Specimen: Peritoneal Fluid Updated: 03/12/21 1548 Bacterial Culture, Aerobic + Susc [[id number]] Collected: 03/12/21 1546 Lab Status: Preliminary result Specimen: Peritoneal Fluid Updated: 03/13/21 1129 Bacterial Culture, Aerobic + Susc No growth to date Bacterial Culture, Aerobic + Susc [[id number]] Collected: 03/12/21 1234 Lab Status: Preliminary result Specimen: Pleural Fluid, Right Updated: 03/13/21 1133 Bacterial Culture, Aerobic + Susc No growth to date Bacterial Culture, Anaerobic + Susc [[id number]] Collected: 03/12/21 1234 Lab Status: In process Specimen: Pleural Fluid, Right Updated: 03/12/21 1308 Gram Stain [[id number]] Collected: 03/12/21 1234 Lab Status: Final result Specimen: Pleural Fluid, Right Updated: 03/12/21 1646 Gram Stain No organisms seen. White blood cells present. Stain performed on concentrated cytospin preparation. Gram Stain [[id number]] Collected: 03/12/21 1234 Lab Status: No result Specimen: Pleural Fluid, Right SARS Coronavirus-2 RNA, V Symptomatic [[id number]] Collected: 03/12/21 1100 Lab Status: Final result [...] was performed using the Aptima SARS-CoV-2 assay ([employer] on the Suda System under emergency use authorization (EUA) by the U.S. Food and Drug Administration. Fact sheets for this EUA assay can be found at the following links: For Healthcare Providers: https://www.fda.gov/media/551189/download For Patients: https://www.fda.gov/media/403787/download Influenza A/B and RSV, PCR, Varies [[id number]] Collected: 03/12/21 1100 Lab Status: Final result Specimen: Varies from Nasopharynx Updated: 03/13/21 1155 Influenza A/B and RSV, Source Swab, Nasopharynx Influenza A, PCR Undetected Comment: Influenza A RNA absent. Influenza B, PCR Undetected Comment: Influenza B RNA absent. Respiratory Syncytial Virus, PCR Undetected Comment: RSV RNA absent. ----ADDITIONAL INFORMATION---- This test has been modified from the combustion engineer's instructions. Its performance characteristics were determined by [facility] in a manner consistent with CLIA requirements. This test has not been cleared or approved by the U.S. Food and Drug Administration. Bacteria / Raudel Culture, Blood #2 [[id number]] Collected: 03/12/21 0710 Lab Status: Preliminary result Specimen: Blood, Peripheral Draw Updated: 03/13/21 0805 Bacteria/Raudel Culture, Blood No growth to date. MRSA PCR, Nasal [[id number]] Collected: 03/12/21 0623 Lab Status: Final result Specimen: Swab from Nares Updated: 03/12/21 1050 MRSA Screen, Nasal by PCR Negative Hepatitis B Surface Antigen [[id number]] Collected: 03/12/21557 Lab Status: Final result Specimen: Blood, Peripheral Draw Updated: 03/12/21 0744 HBs Antigen, S Nonreactive Comment: Biotin has been identified by the combustion engineer as a potential interfering substance. Higher concentrations of biotin may be found in multivitamins, hair/nail supplements, and workout supplements. If the result does not match clinical observations, repeat testing after patient refrains from the use of supplements for at least 12 hours. Hepatitis B Core IgM Ab [[id number]] Collected: 03/12/21557 Lab Status: Final result Specimen: Blood, Peripheral Draw Updated: 03/13/21911 HBc IgM Ab, S Negative Hepatitis A IgM Ab, Serum [[id number]] Collected: 03/12/21557 Lab Status: Final result Specimen: Blood, Peripheral Draw Updated: 03/13/21950 Hepatitis A IgM Ab, S Negative Comment: Result does not exclude the possibility of exposure to hepatitis A virus. Antibody level during early infection stage may be below the limit of detection of the assay. HCV Ab w/Reflex to HCV PCR, Serum [[id number]] Collected: 03/12/21557 Lab Status: Final result Specimen: Blood, Peripheral Draw Updated: 03/13/21924 HCV Ab, S Negative Comment: Wynaem-mc-uzbbak ratio is <1.00. Bacteria / Raudel Culture, Blood #1 [[id number]] Collected: 03/12/21556 Lab Status: Preliminary result Specimen: [...] care time 35 min Lizet Navarro M.D. ANICAL CAR CHECKER Kerry Naranjo, YARITZA, C.N.P., M.S.N. - 03/15/2021 12:41 PM CST SUBJECTIVE Catia Carias reports having no nausea, vomiting and abdominal pain. Her symptoms are improving.She no longer is intubated, with extubated yesterday afternoon. Discussed with her need for follow-up in the GI clinic with shank faker; she is interested in that appointment I [...] Naranjo APRN, C.N.P., M.S.N. Gastroenterology and Hepatology [facility] ANICAL CAR CHECKER Daron Cochran, DSuma, R.Ph. - 03/15/2021 9:05 [...] Procedure Component Value - Date/Time Gram Stain [[id number]] Collected: 03/12/211545 Lab Status: Final result Specimen: Peritoneal Fluid Updated: 03/12/21 182 Gram Stain No organisms seen. White blood cells present. Stain performed on concentrated cytospin preparation. Bacterial Culture, Anaerobic + Susc [[id number]] Collected: 03/12/21 154 Lab Status: Preliminary result Specimen: Peritoneal Fluid Updated: 03/14/21 0523 Bacterial Culture, Anaerobic No growth to date. Bacterial Culture, Aerobic + Susc [[id number]] Collected: 03/12/21 1546 Lab Status: Preliminary result Specimen: Peritoneal Fluid Updated: 03/13/21 1129 Bacterial Culture, Aerobic + Susc No growth to date Bacterial Culture, Aerobic + Susc [[id number]] Collected: 03/12/21 1234 Lab Status: Preliminary result Specimen: Pleural Fluid, Right Updated: 03/13/21 1133 Bacterial Culture, Aerobic + Susc No growth to date Bacterial Culture, Anaerobic + Susc [[id number]] Collected: 03/12/214 Lab Status: Preliminary result Specimen: Pleural Fluid, Right Updated: 03/14/21 0523 Bacterial Culture, Anaerobic No growth to date. Gram Stain [[id number]] Collected: 03/12/211233 Lab Status: Final result Specimen: Pleural Fluid, Right Updated: 03/12/21 1646 Gram Stain No organisms seen. White blood cells present. Stain performed on concentrated cytospin preparation. Gram Stain [[id number]] Collected: 03/12/211233 Lab Status: No result Specimen: Pleural Fluid, Right SARS Coronavirus-2 RNA, V Symptomatic [[id number]] Collected: 03/12/21 1100 Lab Status: Final result [...] was performed using the Aptima SARS-CoV-2 assay ([employer] on the Suda System under emergency use authorization (EUA) by the U.S. Food and Drug Administration. Fact sheets for this EUA assay can be found at the following links: For Healthcare Providers: https://www.fda.gov/media/318458/download For Patients: https://www.fda.gov/media/275229/download Influenza A/B and RSV, PCR, Varies [[id number]] Collected: 03/12/21 1100 Lab Status: Final result Specimen: Varies from Nasopharynx Updated: 03/13/21 1155 Influenza A/B and RSV, Source Swab, Nasopharynx Influenza A, PCR Undetected Comment: Influenza A RNA absent. Influenza B, PCR Undetected Comment: Influenza B RNA absent. Respiratory Syncytial Virus, PCR Undetected Comment: RSV RNA absent. ----ADDITIONAL INFORMATION---- This test has been modified from the combustion engineer's instructions. Its performance characteristics were determined by [facility] in a manner consistent with CLIA requirements. This test has not been cleared or approved by the U.S. Food and Drug Administration. Bacteria / Raudel Culture, Blood #2 [[id number]] Collected: 03/12/21709 Lab Status: Preliminary result Specimen: Blood, Peripheral Draw Updated: 03/15/21804 Bacteria/Raudel Culture, Blood No growth to date. MRSA PCR, Nasal [[id number]] Collected: 03/12/21622 Lab Status: Final result Specimen: Swab from Nares Updated: 03/12/21 105 MRSA Screen, Nasal by PCR Negative Hepatitis B Surface Antigen [[id number]] Collected: 03/12/21557 Lab Status: Final result Specimen: Blood, Peripheral Draw Updated: 03/12/21743 HBs Antigen, S Nonreactive Comment: Biotin has been identified by the combustion engineer as a potential interfering substance. Higher concentrations of biotin may be found in multivitamins, hair/nail supplements, and workout supplements. If the result does not match clinical observations, repeat testing after patient refrains from the use of supplements for at least 12 hours. Hepatitis B Core IgM Ab [[id number]] Collected: 03/12/21557 Lab Status: Final result Specimen: Blood, Peripheral Draw Updated: 03/13/21911 HBc IgM Ab, S Negative Hepatitis A IgM Ab, Serum [[id number]] Collected: 03/12/21557 Lab Status: Final result Specimen: Blood, Peripheral Draw Updated: 03/13/21950 Hepatitis A IgM Ab, S Negative Comment: Result does not exclude the possibility of exposure to hepatitis A virus. Antibody level during early infection stage may be below the limit of detection of the assay. HCV Ab w/Reflex to HCV PCR, Serum [[id number]] Collected: 03/12/21557 Lab Status: Final result Specimen: Blood, Peripheral Draw Updated: 03/13/21924 HCV Ab, S Negative Comment: Qclvtu-fd-nirilg ratio is <1.00. Bacteria / Raudel Culture, Blood #1 [[id number]] Collected: 03/12/21556 Lab Status: Preliminary result Specimen: [...] at discharge: TBD Virginie Valerio, Pharm.D., R.Ph. ANICAL CAR CHECKER Lizet Navarro M.D. - 03/14/2021 12:10 PM [...] 0.2-1.5 mcg/kg/hr (Dosing Weight), Last Rate: Stopped (03/14/2135) norepinephrine 16 mcg/mL in D5W 250 mL [...] Procedure Component Value - Date/Time Gram Stain [[id number]] Collected: 03/12/21 154 Lab Status: Final result Specimen: Peritoneal Fluid Updated: 03/12/21 182 Gram Stain No organisms seen. White blood cells present. Stain performed on concentrated cytospin preparation. Bacterial Culture, Anaerobic + Susc [[id number]] Collected: 03/12/21 1546 Lab Status: In process Specimen: Peritoneal Fluid Updated: 03/12/21 1548 Bacterial Culture, Aerobic + Susc [[id number]] Collected: 03/12/21 1546 Lab Status: Preliminary result Specimen: Peritoneal Fluid Updated: 03/13/21 1129 Bacterial Culture, Aerobic + Susc No growth to date Bacterial Culture, Aerobic + Susc [[id number]] Collected: 03/12/21 1234 Lab Status: Preliminary result Specimen: Pleural Fluid, Right Updated: 03/13/21 1133 Bacterial Culture, Aerobic + Susc No growth to date Bacterial Culture, Anaerobic + Susc [[id number]] Collected: 03/12/21 1234 Lab Status: In process Specimen: Pleural Fluid, Right Updated: 03/12/21 1308 Gram Stain [[id number]] Collected: 03/12/21 123 Lab Status: Final result Specimen: Pleural Fluid, Right Updated: 03/12/21 1646 Gram Stain No organisms seen. White blood cells present. Stain performed on concentrated cytospin preparation. Gram Stain [[id number]] Collected: 03/12/21 123 Lab Status: No result Specimen: Pleural Fluid, Right SARS Coronavirus-2 RNA, V Symptomatic [[id number]] Collected: 03/12/21 1100 Lab Status: Final result [...] was performed using the Aptima SARS-CoV-2 assay ([employer] on the Suda System under emergency use authorization (EUA) by the U.S. Food and Drug Administration. Fact sheets for this EUA assay can be found at the following links: For Healthcare Providers: https://www.fda.gov/media/648965/download For Patients: https://www.fda.gov/media/093305/download Influenza A/B and RSV, PCR, Varies [[id number]] Collected: 03/12/21 1100 Lab Status: Final result Specimen: Varies from Nasopharynx Updated: 03/13/21 1155 Influenza A/B and RSV, Source Swab, Nasopharynx Influenza A, PCR Undetected Comment: Influenza A RNA absent. Influenza B, PCR Undetected Comment: Influenza B RNA absent. Respiratory Syncytial Virus, PCR Undetected Comment: RSV RNA absent. ----ADDITIONAL INFORMATION---- This test has been modified from the combustion engineer's instructions. Its performance characteristics were determined by [facility] in a manner consistent with CLIA requirements. This test has not been cleared or approved by the U.S. Food and Drug Administration. Bacteria / Raudel Culture, Blood #2 [[id number]] Collected: 03/12/21709 Lab Status: Preliminary result Specimen: Blood, Peripheral Draw Updated: 03/13/21804 Bacteria/Raudel Culture, Blood No growth to date. MRSA PCR, Nasal [[id number]] Collected: 03/12/21622 Lab Status: Final result Specimen: Swab from Nares Updated: 03/12/21 105 MRSA Screen, Nasal by PCR Negative Hepatitis B Surface Antigen [[id number]] Collected: 03/12/21557 Lab Status: Final result Specimen: Blood, Peripheral Draw Updated: 03/12/21743 HBs Antigen, S Nonreactive Comment: Biotin has been identified by the combustion engineer as a potential interfering substance. Higher concentrations of biotin may be found in multivitamins, hair/nail supplements, and workout supplements. If the result does not match clinical observations, repeat testing after patient refrains from the use of supplements for at least 12 hours. Hepatitis B Core IgM Ab [[id number]] Collected: 03/12/21557 Lab Status: Final result Specimen: Blood, Peripheral Draw Updated: 03/13/21911 HBc IgM Ab, S Negative Hepatitis A IgM Ab, Serum [[id number]] Collected: 03/12/21557 Lab Status: Final result Specimen: Blood, Peripheral Draw Updated: 03/13/21950 Hepatitis A IgM Ab, S Negative Comment: Result does not exclude the possibility of exposure to hepatitis A virus. Antibody level during early infection stage may be below the limit of detection of the assay. HCV Ab w/Reflex to HCV PCR, Serum [[id number]] Collected: 03/12/21557 Lab Status: Final result Specimen: Blood, Peripheral Draw Updated: 03/13/21924 HCV Ab, S Negative Comment: Cmwtso-yb-ybqmwq ratio is <1.00. Bacteria / Raudel Culture, Blood #1 [[id number]] Collected: 03/12/21556 Lab Status: Preliminary result Specimen: [...] care time 35 min Lizet Navarro M.D. ANICAL CAR CHECKER Kerry Naranjo APRN, C.N.P., M.S.N. - 03/14/2021 [...] Naranjo APRN, C.N.P., M.S.N. Gastroenterology and Hepatology [facility] ANICAL CAR CHECKER Associated attestation - Leslie Hawk M.D. - 03/14/2021 1:07 PM MECHANICAL CAR CHECKER This is a supervisory note for gastroenterology [...] ceruloplasmin, I have discussed her case with shank faker, since patient is anuric currently, we will [...] team if any further questions Daron Cochran, D., R.Ph. - 03/14/2021 9:39 AM CST Pharmacist [...] Procedure Component Value - Date/Time Gram Stain [[id number]] Collected: 03/12/21 1546 Lab Status: Final result Specimen: Peritoneal Fluid Updated: 03/12/21 1822 Gram Stain No organisms seen. White blood cells present. Stain performed on concentrated cytospin preparation. Bacterial Culture, Anaerobic + Susc [[id number]] Collected: 03/12/21 1546 Lab Status: Preliminary result Specimen: Peritoneal Fluid Updated: 03/14/21 0523 Bacterial Culture, Anaerobic No growth to date. Bacterial Culture, Aerobic + Susc [[id number]] Collected: 03/12/21 1546 Lab Status: Preliminary result Specimen: Peritoneal Fluid Updated: 03/13/21 1129 Bacterial Culture, Aerobic + Susc No growth to date Bacterial Culture, Aerobic + Susc [[id number]] Collected: 03/12/21 1234 Lab Status: Preliminary result Specimen: Pleural Fluid, Right Updated: 03/13/21 1133 Bacterial Culture, Aerobic + Susc No growth to date Bacterial Culture, Anaerobic + Susc [[id number]] Collected: 03/12/21 1234 Lab Status: Preliminary result Specimen: Pleural Fluid, Right Updated: 03/14/21 0523 Bacterial Culture, Anaerobic No growth to date. Gram Stain [[id number]] Collected: 03/12/21 1234 Lab Status: Final result Specimen: Pleural Fluid, Right Updated: 03/12/21 1646 Gram Stain No organisms seen. White blood cells present. Stain performed on concentrated cytospin preparation. Gram Stain [[id number]] Collected: 03/12/21 1234 Lab Status: No result Specimen: Pleural Fluid, Right SARS Coronavirus-2 RNA, V Symptomatic [[id number]] Collected: 03/12/21 1100 Lab Status: Final result [...] was performed using the Aptima SARS-CoV-2 assay ([employer] on the Suda System under emergency use authorization (EUA) by the U.S. Food and Drug Administration. Fact sheets for this EUA assay can be found at the following links: For Healthcare Providers: https://www.fda.gov/media/650360/download For Patients: https://www.fda.gov/media/335408/download Influenza A/B and RSV, PCR, Varies [[id number]] Collected: 03/12/21 1100 Lab Status: Final result Specimen: Varies from Nasopharynx Updated: 03/13/21 1155 Influenza A/B and RSV, Source Swab, Nasopharynx Influenza A, PCR Undetected Comment: Influenza A RNA absent. Influenza B, PCR Undetected Comment: Influenza B RNA absent. Respiratory Syncytial Virus, PCR Undetected Comment: RSV RNA absent. ----ADDITIONAL INFORMATION---- This test has been modified from the combustion engineer's instructions. Its performance characteristics were determined by [facility] in a manner consistent with CLIA requirements. This test has not been cleared or approved by the U.S. Food and Drug Administration. Bacteria / Raudel Culture, Blood #2 [[id number]] Collected: 03/12/21 0710 Lab Status: Preliminary result Specimen: Blood, Peripheral Draw Updated: 03/14/21 0805 Bacteria/Raudel Culture, Blood No growth to date. MRSA PCR, Nasal [[id number]] Collected: 03/12/21 0623 Lab Status: Final result Specimen: Swab from Nares Updated: 03/12/21 1050 MRSA Screen, Nasal by PCR Negative Hepatitis B Surface Antigen [[id number]] Collected: 03/12/21557 Lab Status: Final result Specimen: Blood, Peripheral Draw Updated: 03/12/21 0744 HBs Antigen, S Nonreactive Comment: Biotin has been identified by the combustion engineer as a potential interfering substance. Higher concentrations of biotin may be found in multivitamins, hair/nail supplements, and workout supplements. If the result does not match clinical observations, repeat testing after patient refrains from the use of supplements for at least 12 hours. Hepatitis B Core IgM Ab [[id number]] Collected: 03/12/21557 Lab Status: Final result Specimen: Blood, Peripheral Draw Updated: 03/13/21 0912 HBc IgM Ab, S Negative Hepatitis A IgM Ab, Serum [[id number]] Collected: 03/12/21557 Lab Status: Final result Specimen: Blood, Peripheral Draw Updated: 03/13/21 09 Hepatitis A IgM Ab, S Negative Comment: Result does not exclude the possibility of exposure to hepatitis A virus. Antibody level during early infection stage may be below the limit of detection of the assay. HCV Ab w/Reflex to HCV PCR, Serum [[id number]] Collected: 03/12/21557 Lab Status: Final result Specimen: Blood, Peripheral Draw Updated: 03/13/21924 HCV Ab, S Negative Comment: Tvniam-xp-lekvil ratio is <1.00. Bacteria / Raudel Culture, Blood #1 [[id number]] Collected: 03/12/21556 Lab Status: Preliminary result Specimen: [...] <10 Changes to medications anticipated at discharge: TBSlick Valerio, Pharm.D., R.Ph. ANICAL CAR CHECKER Silvestre Stevens, R.R.T. - 03/14/2021 9:31 AM [...] extubated to 4 lpm per nasal canula ANICAL CAR CHECKER Adry Reyes - 03/14/2021 4:20 AM CST 03/14/21 0315 Vent Information Ventilator System Check Settings and alarms [...] signed by: Adry Reyes 03/14/21 4:21 AM MECHANICAL CAR CHECKER ANICAL CAR CHECKER Tariq Marcano M.B.B.S. - 03/13/2021 7:04 PM [...] Procedure Component Value - Date/Time Gram Stain [[id number]] Collected: 03/12/21 1546 Lab Status: Final result Specimen: Peritoneal Fluid Updated: 03/12/21 1822 Gram Stain No organisms seen. White blood cells present. Stain performed on concentrated cytospin preparation. Bacterial Culture, Anaerobic + Susc [[id number]] Collected: 03/12/21 1546 Lab Status: In process Specimen: Peritoneal Fluid Updated: 03/12/21 1548 Bacterial Culture, Aerobic + Susc [[id number]] Collected: 03/12/21 1546 Lab Status: Preliminary result Specimen: Peritoneal Fluid Updated: 03/13/21 1129 Bacterial Culture, Aerobic + Susc No growth to date Bacterial Culture, Aerobic + Susc [[id number]] Collected: 03/12/21 1234 Lab Status: Preliminary result Specimen: Pleural Fluid, Right Updated: 03/13/21 1133 Bacterial Culture, Aerobic + Susc No growth to date Bacterial Culture, Anaerobic + Susc [[id number]] Collected: 03/12/21 1234 Lab Status: In process Specimen: Pleural Fluid, Right Updated: 03/12/21 1308 Gram Stain [[id number]] Collected: 03/12/21 1234 Lab Status: Final result Specimen: Pleural Fluid, Right Updated: 03/12/21 1646 Gram Stain No organisms seen. White blood cells present. Stain performed on concentrated cytospin preparation. Gram Stain [[id number]] Collected: 03/12/21 1234 Lab Status: No result Specimen: Pleural Fluid, Right SARS Coronavirus-2 RNA, V Symptomatic [[id number]] Collected: 03/12/21 1100 Lab Status: Final result [...] was performed using the Aptima SARS-CoV-2 assay ([employer] on the Suda System under emergency use authorization (EUA) by the U.S. Food and Drug Administration. Fact sheets for this EUA assay can be found at the following links: For Healthcare Providers: https://www.fda.gov/media/705799/download For Patients: https://www.fda.gov/media/814334/download Influenza A/B and RSV, PCR, Varies [[id number]] Collected: 03/12/21 1100 Lab Status: Final result Specimen: Varies from Nasopharynx Updated: 03/13/21 1155 Influenza A/B and RSV, Source Swab, Nasopharynx Influenza A, PCR Undetected Comment: Influenza A RNA absent. Influenza B, PCR Undetected Comment: Influenza B RNA absent. Respiratory Syncytial Virus, PCR Undetected Comment: RSV RNA absent. ----ADDITIONAL INFORMATION---- This test has been modified from the combustion engineer's instructions. Its performance characteristics were determined by [facility] in a manner consistent with CLIA requirements. This test has not been cleared or approved by the U.S. Food and Drug Administration. Bacteria / Raudel Culture, Blood #2 [[id number]] Collected: 03/12/21 0710 Lab Status: Preliminary result Specimen: Blood, Peripheral Draw Updated: 03/13/21 0805 Bacteria/Raudel Culture, Blood No growth to date. MRSA PCR, Nasal [[id number]] Collected: 03/12/21 0623 Lab Status: Final result Specimen: Swab from Nares Updated: 03/12/21 1050 MRSA Screen, Nasal by PCR Negative Hepatitis B Surface Antigen [[id number]] Collected: 03/12/21 0558 Lab Status: Final result Specimen: Blood, Peripheral Draw Updated: 03/12/21 0744 HBs Antigen, S Nonreactive Comment: Biotin has been identified by the combustion engineer as a potential interfering substance. Higher concentrations of biotin may be found in multivitamins, hair/nail supplements, and workout supplements. If the result does not match clinical observations, repeat testing after patient refrains from the use of supplements for at least 12 hours. Hepatitis B Core IgM Ab [[id number]] Collected: 03/12/21557 Lab Status: Final result Specimen: Blood, Peripheral Draw Updated: 03/13/21911 HBc IgM Ab, S Negative Hepatitis A IgM Ab, Serum [[id number]] Collected: 03/12/21557 Lab Status: Final result Specimen: Blood, Peripheral Draw Updated: 03/13/21950 Hepatitis A IgM Ab, S Negative Comment: Result does not exclude the possibility of exposure to hepatitis A virus. Antibody level during early infection stage may be below the limit of detection of the assay. HCV Ab w/Reflex to HCV PCR, Serum [[id number]] Collected: 03/12/21557 Lab Status: Final result Specimen: Blood, Peripheral Draw Updated: 03/13/21924 HCV Ab, S Negative Comment: Yzhvab-jz-liwmlg ratio is <1.00. Bacteria / Raudel Culture, Blood #1 [[id number]] Collected: 03/12/21556 Lab Status: Preliminary result Specimen: [...] 32 minutes. I personally discussed with the activities aide on-call Tyrell Wright ANICAL CAR CHECKER Criselda Maurer R.R.T., L.R.T. - 03/13/2021 6:09 [...] ART 30 L PH ART 7.46 H ANICAL CAR CHECKER Kerry Naranjo, Moira VIGIL, M.S.N. - 03/13/2021 10:05 AM CST SUBJECTIVE [...] Naranjo APRN, C.N.P., M.S.N. Gastroenterology and Hepatology [facility] ANICAL CAR CHECKER Associated attestation - Leslie Hawk M.D. - 03/13/2021 2:43 PM MECHANICAL CAR CHECKER This is a supervisory note for gastroenterology [...] 1 gm x1 given 03/12 ?? Per splicing supervisor, plan for 5 days of broad spectrums [...] at discharge: TBD Virginie Valerio, Pharm.D., R.Ph. ANICAL CAR CHECKER Sridhar Trevino, R.R.T. - 03/13/2021 6:29 AM CST 2000-Pt seen this evening with 7.5 ETT, secured 22cm @ teeth. Pt on kincaid ventilator SCMV 18/320/+12/40% SpO2: 99% Breath Sounds/Secretions: clear/dim, suctioning out small white/yellow secretions. Pt tolerating ventilator well RT to follow ANICAL CAR CHECKER Virginie Valerio, R.Ph. - 03/12/2021 10:18 AM [...] at discharge: TBD Virginie Valerio, Pharm.D., R.Ph. ANICAL CAR CHECKER Shahida Brito R.RMerlin., L.R.T. - 03/12/2021 10:14 AM CST Pt was intubated with 7.5 ETT placed at 22@ teeth. Tube placement confirmed with bilateral breath sounds and positive ETCO2. She was placed on the ventilator at volume control 20/300/+8/40%. ANICAL CAR CHECKER documented in this encounter H&P Notes Ivan [...] again had likely had a consultation with [facility] and will request records from their [...] from lines of procedures was 60 minutes ANICAL CAR CHECKER documented in this encounter Procedure Notes Barrera [...] slight turn: yes Complications - arterial: none ANICAL CAR CHECKER Barrera To M.D. - 03/12/2021 6:02 PM [...] ETT location: oral VL device: glide scope [place] scope blade size: 3 Adult tube size: [...] right mid-axillary Intercostal space: 3rd Puncture method: wolh-meb-ilradq catheter Number of attempts: 1 Drainage characteristics: [...] completed successfully: yes Complications: no apparent complications ANICAL CAR CHECKER documented in this encounter Consult Notes Ciara Stewart L.G.S.W. - 03/21/2021 2:09 PM CST Diagnostic Assessment SUBJECTIVE DEMOGRAPHIC INFORMATION Referral Source: CM/ROSAS Referral Referral Reason: Psychosocial assessment,Coping, adjustment and support,Discharge Planning Discharge Planning: (to be determined) Person(s) present during interview: Lobito Rosenthal Primary care clinic and provider: ELSEWHERE, PCP, Patient reported Dr. Roge Hernandez, [facility] and [facility] to be her primary Doctor Primary Language: Pakistani Ultrasound Technician Services Used: No Legal Information: Voluntary Citizenship: [...] origin consists of the patient's father, Roscoe Craias, the patient's mother Parris and step- father [...] Support System: Significant other,Parent,Family members Spirituality / Spiritism / Culture: , patient was raised Anabaptist but does not currently attend catholic. 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 ASSISTIVE DEVICES Patient has the following equipment: Eyeglasses,Contacts Patient anticipates potentially needing the following additional equipment: None Transportation needs: Support from family ANIMAL WARDEN Caregiver Name: Lobito Brunson Caregiver Relationship: Significant other Caregiver FINANCES/INSURANCE Primary insurance: Mr BananaO Secondary insurance: N/A Income Information Does the Patient have any Financial Concerns?: Yes Income Source: Parent/primary caregiver employmen Income/Expense Information: Income meets expenses ADVANCE DIRECTIVES The patient does not currently have an advance directive on file. LEGAL HISTORY Review of the [place] Trial Court Public Access Website ([email or web address].) shows no past or current criminal charges. [...] side effects. Patient works with Dr. Hernandez, [facility] and [facility], for medication management and support. Thepatient reported [...] Intact Suicide Risk and Safety Risk Assessment: [place] Suicide Risk Severity Scale (C-SSRS)Lifetime/Recent 03/21/21 1400 [...] active suicidal and homicidal ideation. Lifetime/Recent: The [place] Suicide Severity Rating Scale (C-SSRS) Lifetime/Recent screening [...] in sustained remission INTERVENTIONS 1. Inpatient clinical health social work professor completed a diagnostic assessment in response to a chemical dependency order placed by Keerthi Guzman (ordering hospitalist). 2. rice farmworker engaged the patient in Solution Focused Brief Therapy and Motivational Interviewingutilizing scaling questions and process questions and rapport building, empathetic communication, open ended questioning, summarizing and reflection to complete the assessment process. rice farmworker recommended patient continue to follow direction of inpatient medical and mental health team to determine best plan of care for patient. Rule 25 assessment discussed with patient, however based on this sba underwriter's assessment and patient's disclosure, patient reports [...] chemical health assessment or Rule 25. 5. rice farmworker engaged in safety planning conversation. a. Patient [...] medical and mental health treatment team. 2. rice farmworker will continue to assist as needed and [...] 50 minutes total time. Danny Newton 03/21/2021 ANICAL CAR CHECKER Jean Paul M.D., M.P.H. - 03/21/2021 12:07 [...] while sitting in bed, eyes rolled back. RESEARCH GROUP DIRECTOR called for help and upon RN entering room, noted pts arms tensing and shaking. VICE PRESIDENT NETWORK paged right away. VSS. Pt appearing sleepy upon sba underwriter entering room and then after a [...] Plantar Response: R flexor L flexor Coordination: Cdzwgh-Qczm-[id number]: Intact b/l ASSESSMENT / PLAN Patient Active [...] the date of the encounter. Time included [id number] interview and evaluation, counseling the patient, reviewing records, reviewing relevant diagnostic tests, ordering tests, documenting clinical information in the electronic records and communicating with other p roviders. PATIENT EDUCATION Ready to learn, no apparent learning barriers were identified; learning preferences include listening. Explained diagnosis and treatment plan; patient expressed understanding of the content. ANICAL CAR CHECKER Sivakumar Reyes M.D. 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 Ouomu Salinas M.B., Lilian Khan - 03/16/2021 10:54 [...] in the right direction. We placed a ntqipj-tw-dueuf suture around the paracentesis site. [facility] of the ICU team. Procedure: 5 mL of 1% lidocaine were injected around the paracentesis site. A 2 0 Vicryl suture was used to place the a decpqm-zu-pkpid stitch around the paracentesis site This was [...] remain available if needed. Vik Harper, Erin, MJules Shahida Adams L.S.W. - 03/13/2021 4:03 PM CST Psychosocial Assessment SUBJECTIVE DEMOGRAPHIC INFORMATION Referral Source: CM/SW Referral Referral Reason: Psychosocial assessment,Coping, adjustment and support,Discharge Planning Discharge Planning: (to be determined) Person(s) present during interview: Family Primary care clinic and provider: ELSEWHERE, PCP Primary Language: Pakistani Ultrasound Technician Services Used: No Legal Information: Legal Decision [...] so this writercontacted the patient's mother Parris ([phone]) to complete a psychosocial assessment and to [...] members. We have not received permission to contactthe. Primary caregiver: Self Support System: Significant other,Parent,Family members Spirituality / Spiritism / Culture: , patient was raised Anabaptist but does not currently attend catholic. 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 in their motor clothes but had to [...] Finances: Independent Behavior: Oriented Communication: Talks,Understands speaking,Understands Pakistani,Can write It is anticipated that the patient will need assistance with (to be determined). ASSISTIVE DEVICES Patient has the following equipment: Eyeglasses,Contacts Patient anticipates potentially needing the following additional equipment: None Transportation needs: Support from family SERVICES REQUESTED None ANIMAL WARDEN Formal and Informal Resources: Caregiver Name: Lobito Brunson Caregiver Relationship: Significant other Caregiver FINANCES/INSURANCE Primary insurance: [employer] PLUS Provident LinkO Secondary insurance: N/A Income Information Does the [...] MENTAL HEALTH Mental Health History: Patient's mother beleives that the patient has had anxiety and on and off depression. Current Psychological Symptoms: Patient Level of Consciousness: Obtunded Suicide Risk and Safety Risk Assessment: The Stanley Suicide Risk Severity Scale (C-SSRS) was unable [...] extended family/friends ASSESSMENT / PLAN IMPRESSION This sba underwriter completed a psychosocial assessment of the [...] work at this time but thanked this sba underwriter for the call. INTERVENTIONS 1. Psychosocial assessment completed. 2. Provided supportive services. 3. Provided education regarding the role of social work. 4. Provided education regarding referral resources and options. PLAN 1. Social Work will continue to follow and assist as needed or requested. Anticipated barriers to the transition of care/plan: None Светлана Guillen 03/13/2021 ANICAL CAR CHECKER Sera Morgan P.A.-C. - 03/12/2021 12:50 PM CSTAssociated Order(s): Gastroenterology consult (hospital) SUBJECTIVE Gastroenterology consult ([facility]) Referring Provider: Nunu Sanches P.A.-C., M.S. Reason for Consult: liver cirrhosis with ascites History of Present Illness Ms. Carias is a 30 y.o. female with past medical history of recurrent pancreatitis, ADHD, marijuana use, probable alcohol use, and fairly recent diagnosis of cirrhosis with ascites who presents from [facility] being found unresponsive and incontinent at [...] (A) Bilirubin Moderate (A) pH 6.0 Specific [place] 1.016 Urobilinogen 1.0 MRSA PCR, Nasal Collection [...] plan at this time. Sera Morgan P.A.-C. ANICAL CAR CHECKER Associated attestation - Leslie Hawk M.D. - 03/12/2021 2:37 PM MECHANICAL CAR CHECKER This is a supervisory note for gastroenterology [...] answered. All belongings sent home with patient. ANICAL CAR CHECKER Bernardo Rosario R.N. - 03/24/2021 4:20 AM [...] Plan of care to be continued by oncomingnurse. ANICAL CAR CHECKER Hope Guerrier R.N. - 03/23/2021 4:32 PM [...] of blood today. Will continue withcurrent POC. ANICAL CAR CHECKER Lisa Stinson R.N. - 03/23/2021 5:50 AM [...] Patient denies pain. Will continue to monitor. ANICAL CAR CHECKER Carol Rodriguez R.N. - 03/22/2021 11:06 PM CST Shift Goals: Clinical Goals for the Shift: Patient will remain free from falls and get adequate rest Identify possible barriers to meeting goals/advancing plan of care: None End of Shift Summary: Patient slept intermittently throughout the shift and took a couple walks in the halls with the RESEARCH GROUP DIRECTOR today. Pt reported having no abdominal pain and VS remained stable. Pt did not need her night dose ofLactulose as she reported having 3 stools earlier today. No other concerns present at this time, will continue with plan of care. Jarek Lanza R.N. - 03/22/2021 2:55 PM CST MARILUZ Follow up: This is a follow up to the Behavioral Emergency Response Team call for Anxiety,Agitation, at [facility]. I have reviewed the medical records, spoke with the patient's nurse, and met with the patient in person. Follow-Up Assessment: Hogshead Opener met with patient assigned nurse. Patient nurse [...] free to contact the MARILUZ RN at [phone], or in an emergent situation by activating the MARILUZ team through the hospital grease refiner operator by dialing 201. ANICAL CAR CHECKER Nola Frederick - 03/22/2021 4:49 AM CST Shift Goals: [...] melatonin and Zyprexa not given until 0100. ANICAL CAR CHECKER Yajaira Faulkner RGabby - 03/21/2021 2:40 PM CST Rapid Response Follow Up Attending Provider: Keerthi Guzman M.D. Admission Date: 03/12/2021 Current Vitals: Vitals: 03/21/21 1100 BP: 117/75 Pulse: 105 Resp: 22 Temp: 37.3 ??C SpO2: 97% Rapid RN following for: ? seizure Assessment: pt alert Oriented x3 walking in room , has a sitter, vs stable, head ct negative, plan for eeg today Interventions: remove from poultry farmer meat list Recommendations for primary RN: call for [...] primary nurse: Encouraged primary RN to call VICE PRESIDENT NETWORK with questions, concerns, or if patient condition changes. Adina Zhao RGabby - 03/21/2021 6:48 AM CST Rapid Response [...] RN: Continue to monitor mental status, call VICE PRESIDENT NETWORK with any concerns Rapid RN will continue to monitor for: Will monitor for seizure like activity Patient Disposition: has improved Rapid RN following prior to transfer to higher level of care, if applicable: Offered debrief to primary nurse: Encouraged primary RN to call VICE PRESIDENT NETWORK with questions, concerns, or if patient condition changes. Bisi Kwong RSumaNSuma - 03/21/2021 6:38 AM CST Shift Goals: [...] labs. Will continue with plan of care. ANICAL CAR CHECKER Priscilla Morelos R.N. - 03/20/2021 11:03 PM [...] while sitting in bed, eyes rolled back. RESEARCH GROUP DIRECTOR called for help and upon RN entering room,noted pts arms tensing and shaking. VICE PRESIDENT NETWORK paged right away. VSS. Pt appearing sleepy upon sba underwriter entering room and then after a [...] HS, had 4bms today. Continue to monitor. ANICAL CAR CHECKER Tia Abbasi R.N. - 03/20/2021 10:38 PM CST MAR[facility] Follow up: This is a follow up to the Behavioral Emergency Response Team call for Anxiety,Agitation, at [facility]. I have reviewed the medical records, [...] free to contact the MARILUZ RN at [phone], or in an emergent situation by activating the MARILUZ team through the hospital grease refiner operator by dialing 201. ANICAL CAR CHECKER Grazyna Barroso RSumaN. - 03/20/2021 2:34 PM CST Shift Goals: [...] Vitals remain stable, continue plan of care. ANICAL CAR CHECKER Cathie Rae RSumaN. - 03/20/2021 1:34 PM CST [facility] Follow up: This is a follow up to the Behavioral Emergency Response Team call for Anxiety,Agitation, at [facility]. I have reviewed the medical records, [...] free to contact the MARILUZ RN at [phone], or in an emergent situation by activating the MARILUZ team through the hospital grease refiner operator by dialing 201. ANICAL CAR CHECKER Tia Abbasi R.N. - 03/20/2021 6:49 AM CST [facility] Follow up: This is a follow up to the Behavioral Emergency Response Team call for Anxiety,Agitation, at [facility]. I have reviewed the medical records, spoke with the patient's nurse, and met with the patient in person. Follow-Up Assessment: No MARILUZ calls this shift. Will continue to follow. Follow-Up: ?? The MARILUZ RN will follow up during their next rounds on the day shift. If there are any questions or concerns, please feel free to contact the MARILUZ RN at [phone], or in an emergent situation by activating the MARILUZ team through the hospital grease refiner operator by dialing 201. ANICAL CAR CHECKER Juan Palacios R.N. - 03/20/2021 4:14 AM [...] Emergency Response Team call for Anxiety,Agitation, at [facility]. I have reviewed the medical records, spoke with the patient's nurse, and met with the patient in person. Follow-Up Assessment: No requests for mariluz interventions today. Follow-Up: ?? The MARILUZ RN will follow up during their rounds on the evening shift. If there are any questions or concerns, please feel free to contact the MARILUZ RN at [phone], or in an emergent situation by activating the MARILUZ team through the hospital grease refiner operator by dialing 201. Grazyna Salazar R.N. - 03/19/2021 1:00 PM CST Shift [...] by: Virginie Stahl R.N. 03/19/21 7:38 AM MECHANICAL CAR CHECKER ANICAL CAR CHECKER Crisleda He R.N. - 03/18/2021 6:56 PM CST Shift [...] a 30 y.o. female admitted to the [facility] for Change Mental Status Hogshead Opener called to pt room due to increased anxious behavior. Pt had refused her lactulose several times recently. Hogshead Opener observed while pt received the a dose this afternoon. Her speech was rapid and tangental. Pt became visibly anxious during and after taking the lactulose. Pt began to slur her words and stutter. Pt's pupils were equal, round, and reacted briskly. Motor function/sensation assessment was normal. After other staff left the room sba underwriter talked with pt for a while [...] was the sister or cousin of a RESEARCH GROUP DIRECTOR. Hogshead Opener spent time validating pt's feelings and when she was much calmer sba underwriter cleared from the situation. Individual Assignment [...] free to contact the MARILUZ RN at [phone], or in an emergent situation by activating the MARILUZ team through the hospital grease refiner operator by dialing 201. Virginie Browning R.N. [...] by: Virginie Stahl R.N. 03/18/21 6:07 AM MECHANICAL CAR CHECKER ANICAL CAR CHECKER Criselda He R.N. - 03/17/2021 5:44 PM [...] at 1445. Will continue plan of care. ANICAL CAR CHECKER Nola Frederick - 03/17/2021 5:37 AM CST [...] not call for assistance at any point. ANICAL CAR CHECKER Hilda Bower R.N. - 03/16/2021 8:04 PM [...] art line, cont to have 2 PIVs. ANICAL CAR CHECKER Ricardo Rosado R.N. - 03/16/2021 4:28 AM CST Shift Goals: [...] grateful. Replaced magnesium, calcium, potassium and phos. ANICAL CAR CHECKER Hilda Bower R.N. - 03/15/2021 6:00 PM [...] Has a right IJ and 2 PIVs. ANICAL CAR CHECKER Ricardo Rosado R.N. - 03/15/2021 6:34 AM [...] Potassium, Magnesium and phos replaced this shift. ANICAL CAR CHECKER Hilda Bower R.N. - 03/14/2021 6:45 PM CST Shift Goals: Clinical Goals for the Shift: Extubate, VSS, Identify possible barriers to meeting goals/advancing plan of care: Comorbidities End of Shift Summary: Status: Pt is in stable condition. Very flat affect and tearful at times. BoyfriendLobito, was heremost of the day at bedside [...] Has a right IJ and 2 PIVs. ANICAL CAR CHECKER Sara Baxter R.N. - 03/13/2021 9:51 PM CST Shift Goals: Clinical Goals for the Shift: VSS, tolerate ventilator Identify possible barriers to meeting goals/advancing plan of care: Acuity of illness, ventilator patient End of Shift Summary: Patient tearful with turning, able to answer yes/no questions, and stated she was in pain. Propofol restarted for comfort overnight, currently on 25 mcg/kg/min, 0.5 mcg/kg/hr precedex. ANICAL CAR CHECKER Diya Weiss R.N. - 03/13/2021 5:05 PM [...] titrated down with MAP goal (>65 per Director Hospice Operations) achieved. Patient appear to have improving mental [...] by: Baldemar Evangelista R.N. 03/13/21 6:36 AM MECHANICAL CAR CHECKER ANICAL CAR CHECKER Diya Weiss R.N. - 03/12/2021 3:00 PM [...] pelvis today. No family visiting this shift. Director Hospice Operations updated patient's mother via phone call. ANICAL CAR CHECKER Criselda Valentin R.N. - 03/12/2021 6:45 AM CST Pt direct admit from [facility] to room 3411. Pt agitated, moaning, not [...] him to bring her to the ED. ANICAL CAR CHECKER documented in this encounter Miscellaneous Notes Hospital [...] of [facility]FP yesterday. She was transferred to [facility] 03/16. -- continue Lactulose titrate [...] the course abx for community acquired pneumonia ANICAL CAR CHECKER documented in this encounter Plan of Treatment Upcoming Encounters Date Type Specialty Care Team Description [facility] Radiology Matthew Jerome 2 Encounter Tyrell Rodriguez M.D. [address] [place] [address] Hospital Gastroenterology and [facility] 2 Encounter Hepatology Tyrell Rodriguez, Lilian [address] [place] [phone] Surgery G[address] [facility] ESOPHAG OGASTRODUODENOSCOPY 2 Hepatology Tyrell Rodriguez, Lilian [address] [place] [phone] Telemedicine Transplant 2 Lab Laboratory Medicine Karin, 2 Adeline Gannon M.D., Ph.D. [address] [place] [phone] Lab Laboratory Medicine Karin, 2 Adeline Gannon M.D., Ph.D. [address] [place] [address] Office Visit Transplant Karin, 2 Adeline Gannon M.D., Ph.D. [address] [place] [phone] Office Visit [facility] Internal [facility], 2 Medicine Vernell Perez [address] [place] [address] App[facility] YJoshuaBJhoan, Lilian [address] [place] [phone] Appointment Gastroenterology and [place], 2 Hepatology uYe Burciaga M.D. [address] [place] [address] Office Visit Gastroenterology and Matthew Jerome 2 Hepatology Tyrell Rodriguez M.D. [address] [place] [phone] Appointment Radiology Queenie Matthew 2 Tyrell Rodriguez M.D. [address] [place] [address] Pending Results Name Type Priority Associated Diagnoses Date/Ti me Prepare Red Blood Cells, 1 Blood Bank Routine 1 05/12/2020 12:59 PM Units MECHANICAL CAR CHECKER Prepare Red Blood Cells, 1 Blood Bank Routine 1 05/12/2020 12:59 PM Units MECHANICAL CAR CHECKER Prepare Red Blood Cells, 1 Blood Bank Routine 1 05/12/2020 12:59 PM Units MECHANICAL CAR CHECKER Prepare Fresh Frozen Blood Bank Routine 021 12:06 PM Plasma : 2 Units MECHANICAL CAR CHECKER Transfuse Fresh Frozen Blood Bank Routine 03/15 3:52 PM Plasma :Bleeding with MECHANICAL CAR CHECKER altered coagulation; 180 mL/hr, 2 Units Prepare Red Blood Cells, 1 Blood Bank Routine 1 05/12/2020 12:59 PM Units MECHANICAL CAR CHECKER Prepare Fresh Frozen Blood Bank Routine 021 2:05 AM Plasma : 1 Units MECHANICAL CAR CHECKER Prepare Pooled Blood Bank Routine 03/16/2021 2: 05 AM Cryoprecipitate MECHANICAL CAR CHECKER Prepare Red Blood Cells, 1 Blood Bank STAT 1 05/16/2020 5:44 AM Units MECHANICAL CAR CHECKER Prepare Fresh Frozen Blood Bank STAT 021 5:44 AM Plasma : 2 Units MECHANICAL CAR CHECKER Prepare Red Blood Cells, 2 Blood Bank STAT 1 05/16/2020 5:44 AM Units MECHANICAL CAR CHECKER Prepare Red Blood Cells, 1 Blood Bank STAT 1 05/16/2020 5:44 AM Units MECHANICAL CAR CHECKER Prepare Fresh Frozen Blood Bank STAT 021 5:44 AM Plasma : 1 Units MECHANICAL CAR CHECKER Patient Status Lab Routine 03/20/2021 7: 40 AM MECHANICAL CAR CHECKER Prepare Red Blood Cells, 1 Blood Bank Routine 1 05/23/2020 1:12 PM Units MECHANICAL CAR CHECKER Scheduled Procedures Name Priority Associated Diagnoses Date/Time [...] 6:15 Res ults for E, S AM MECHANICAL CAR CHECKER this procedure are in the results section. ZINC, S Routine 03/24/2021 6:15 Results for AM MECHANICAL CAR CHECKER this procedure are in the results section. PROTHROMBIN TIME (PT), Routine 03/24/2021 6:15 Re sults for P AM MECHANICAL CAR CHECKER this procedure are in the results section. CBC WITHOUT Routine 03/24/2021 6:15 Results for DIFFERENTIAL, B AM MECHANICAL CAR CHECKER this procedu re are in the results section. COMPREHENSIVE Routine 03/24/2021 6:15 Results for METABOLIC PANEL, S/P AM MECHANICAL CAR CHECKER this pr ocedure are in the results section. TRANSFUSE RED BLOOD Routine 03/23/2021 3:21 CELLS PM MECHANICAL CAR CHECKER TESTING LOCATION Routine 03/23/2021 1:12 Results for PM MECHANICAL CAR CHECKER this procedure are in the results section. PREPARE RED BLOOD Routine 03/23/2021 1:12 CELLS PM MECHANICAL CAR CHECKER TYPE AND SCREEN Routine 03/23/2021 1:12 Results f or PM MECHANICAL CAR CHECKER this procedure are in the results section. ADULT OXYGEN THERAPY Routine 03/23/2021 8:00 AM MECHANICAL CAR CHECKER PULSE OXIMETRY, Routine 03/23/2021 8:00 CONTINUOUS AM MECHANICAL CAR CHECKER PROTHROMBIN TIME (PT), Routine 03/23/2021 6:43 Re sults for P AM MECHANICAL CAR CHECKER this procedure are in the results section. CBC WITHOUT Routine 03/23/2021 6:43 Results for DIFFERENTIAL, B AM MECHANICAL CAR CHECKER this procedu re are in the results section. PHOSPHORUS Routine 03/23/2021 6:43 Results for (INORGANIC), S AM MECHANICAL CAR CHECKER this procedur e are in the results section. MAGNESIUM, S Routine 03/23/2021 6:43 Results for AM MECHANICAL CAR CHECKER this procedure are in the results section. COMPREHENSIVE Routine 03/23/2021 6:43 Results for METABOLIC PANEL, S/P AM MECHANICAL CAR CHECKER this pr ocedure are in the results section. ADULT OXYGEN THERAPY Routine 03/22/2021 8:00 PM MECHANICAL CAR CHECKER PULSE OXIMETRY, Routine 03/22/2021 8:00 CONTINUOUS PM MECHANICAL CAR CHECKER LACTATE, B Routine 03/22/2021 8:38 Results for AM MECHANICAL CAR CHECKER this procedure are in the results section. PROTHROMBIN TIME (PT), Routine 03/22/2021 8:38 Re sults for P AM MECHANICAL CAR CHECKER this procedure are in the results section. CBC WITHOUT Routine 03/22/2021 8:38 Results for DIFFERENTIAL, B AM MECHANICAL CAR CHECKER this procedu re are in the results section. AMMONIA Routine 03/22/2021 8:38 Results for AM MECHANICAL CAR CHECKER this procedure are in the results section. COMPREHENSIVE Routine 03/22/2021 8:38 Results for METABOLIC PANEL, S/P AM MECHANICAL CAR CHECKER this pr ocedure are in the results section. PHOSPHORUS Routine 03/22/2021 8:33 Results for (INORGANIC), S AM MECHANICAL CAR CHECKER this procedur e are in the results section. MAGNESIUM, S Routine 03/22/2021 8:33 Results for AM MECHANICAL CAR CHECKER this procedure are in the results section. ADULT OXYGEN THERAPY Routine 03/22/2021 8:00 AM MECHANICAL CAR CHECKER PULSE OXIMETRY, Routine 03/22/2021 8:00 CONTINUOUS AM MECHANICAL CAR CHECKER ADULT OXYGEN THERAPY Routine 03/21/2021 8:01 PM MECHANICAL CAR CHECKER PULSE OXIMETRY, Routine 03/21/2021 8:01 CONTINUOUS PM MECHANICAL CAR CHECKER EEG ROUTINE - AWAKE Routine 03/21/2021 4:43 Resul ts for AND SLEEP PM MECHANICAL CAR CHECKER this procedure are in the results section. CT ABDOMEN PELVIS RAD - Routine 03/21/2021 Results f or WITHOUT IV CONTRAST (most inpatients 12:42 PM MECHANICAL CAR CHECKER this procedure and all are in the outpatients) results section. CT HEAD WITHOUT IV RAD - Routine 03/21/2021 Results for CONTRAST (most inpatients 12:42 PM MECHANICAL CAR CHECKER this proced ure and all are in the outpatients) results section. ECG Routine 03/21/2021 Results for 10:06 AM MECHANICAL CAR CHECKER this procedure are in the results section. ADULT OXYGEN THERAPY Routine 03/21/2021 8:01 AM MECHANICAL CAR CHECKER PULSE OXIMETRY, Routine 03/21/2021 8:01 CONTINUOUS AM MECHANICAL CAR CHECKER COMPREHENSIVE Routine 03/21/2021 5:44 Results for METABOLIC PANEL, S/P AM MECHANICAL CAR CHECKER this pr ocedure are in the results section. LACTATE, B Routine 03/21/2021 5:43 Results for AM MECHANICAL CAR CHECKER this procedure are in the results section. PROTHROMBIN TIME (PT), Routine 03/21/2021 5:43 Re sults for P AM MECHANICAL CAR CHECKER this procedure are in the results section. CBC WITHOUT Routine 03/21/2021 5:43 Results for DIFFERENTIAL, B AM MECHANICAL CAR CHECKER this procedu re are in the results section. LACTATE, B Timed 03/20/2021 Results for 10:32 PM MECHANICAL CAR CHECKER this procedure are in the results section. CBC WITH DIFFERENTIAL, Timed 03/20/2021 Resul ts for B 10:32 PM MECHANICAL CAR CHECKER this procedure are in the results section. CREATINE KINASE (CK), Timed 03/20/2021 Result s for S 10:32 PM MECHANICAL CAR CHECKER this procedure are in the results section. AMMONIA Timed 03/20/2021 Results for 10:32 PM MECHANICAL CAR CHECKER this procedure are in the results section. COMPREHENSIVE Timed 03/20/2021 Results for METABOLIC PANEL, S/P 10:32 PM MECHANICAL CAR CHECKER this pr ocedure are in the results section. GLUCOSE POCT, B Routine 03/20/2021 9:03 Results f or PM MECHANICAL CAR CHECKER this procedure are in the results section. ADULT OXYGEN THERAPY Routine 03/20/2021 8:01 PM MECHANICAL CAR CHECKER PULSE OXIMETRY, Routine 03/20/2021 8:01 CONTINUOUS PM MECHANICAL CAR CHECKER ADULT OXYGEN THERAPY Routine 03/20/2021 8:01 AM MECHANICAL CAR CHECKER PULSE OXIMETRY, Routine 03/20/2021 8:01 CONTINUOUS AM MECHANICAL CAR CHECKER LACTATE, B Routine 03/20/2021 7:40 Results for AM MECHANICAL CAR CHECKER this procedure are in the results section. PH BLOOD GAS Routine 03/20/2021 7:40 Results for AM MECHANICAL CAR CHECKER this procedure are in the results section. PROTHROMBIN TIME (PT), Routine 03/20/2021 7:40 Re sults for P AM MECHANICAL CAR CHECKER this procedure are in the results section. CBC WITHOUT Routine 03/20/2021 7:40 Results for DIFFERENTIAL, B AM MECHANICAL CAR CHECKER this procedu re are in the results section. PHOSPHORUS Routine 03/20/2021 7:40 Results for (INORGANIC), S AM MECHANICAL CAR CHECKER this procedur e are in the results section. MAGNESIUM, S Routine 03/20/2021 7:40 Results for AM MECHANICAL CAR CHECKER this procedure are in the results section. VENOUS BLOOD GAS Routine 03/20/2021 7:40 Results for W/COOX, B AM MECHANICAL CAR CHECKER this procedure are in the results section. CALCIUM, IONIZED, S/B Routine 03/20/2021 7:40 Res ults for AM MECHANICAL CAR CHECKER this procedure are in the results section. COMPREHENSIVE Routine 03/20/2021 7:40 Results for METABOLIC PANEL, S/P AM MECHANICAL CAR CHECKER this pr ocedure are in the results section. ADULT OXYGEN THERAPY Routine 03/19/2021 8:01 PM MECHANICAL CAR CHECKER PULSE OXIMETRY, Routine 03/19/2021 8:01 CONTINUOUS PM MECHANICAL CAR CHECKER TRANSFUSE FRESH FROZEN Routine 03/19/2021 5:08 PLASMA PM MECHANICAL CAR CHECKER PH BLOOD GAS Routine 03/19/2021 3:04 Results for PM MECHANICAL CAR CHECKER this procedure are in the results section. 25-HYDROXYVITAMIN D2 Routine 03/19/2021 3:04 Resu lts for AND D3, S PM MECHANICAL CAR CHECKER this procedure are in the results section. POTASSIUM, S/P Timed 03/19/2021 3:04 Results fo r PM MECHANICAL CAR CHECKER this procedure are in the results section. PARATHYROID HORMONE Routine 03/19/2021 3:04 Resul ts for (PTH), S PM MECHANICAL CAR CHECKER this procedure are in the results section. CALCIUM, IONIZED, S/B Routine 03/19/2021 3:04 Res ults for PM MECHANICAL CAR CHECKER this procedure are in the results section. TRANSFUSE RED BLOOD Routine 03/19/2021 CELLS 12:49 PM MECHANICAL CAR CHECKER (TTE) 2D ECHO DOPPLER Routine 03/19/2021 Result s for COLOR AND CONTRAST 12:39 PM MECHANICAL CAR CHECKER this proc edure are in the results section. ADULT OXYGEN THERAPY Routine 03/19/2021 8:01 AM MECHANICAL CAR CHECKER PULSE OXIMETRY, Routine 03/19/2021 8:01 CONTINUOUS AM MECHANICAL CAR CHECKER PROTHROMBIN TIME (PT), Routine 03/19/2021 7:39 Re sults for P AM MECHANICAL CAR CHECKER this procedure are in the results section. CBC WITH DIFFERENTIAL, Routine 03/19/2021 7:39 Re sults for B AM MECHANICAL CAR CHECKER this procedure are in the results section. PHOSPHORUS Routine 03/19/2021 7:39 Results for (INORGANIC), S AM MECHANICAL CAR CHECKER this procedur e are in the results section. MAGNESIUM, S Routine 03/19/2021 7:39 Results for AM MECHANICAL CAR CHECKER this procedure are in the results section. AMMONIA Routine 03/19/2021 7:39 Results for AM MECHANICAL CAR CHECKER this procedure are in the results section. COMPREHENSIVE Routine 03/19/2021 7:39 Results for METABOLIC PANEL, S/P AM MECHANICAL CAR CHECKER this pr ocedure are in the results section. BILIRUBIN DIRECT, S/P Routine 03/19/2021 7:38 Res ults for AM MECHANICAL CAR CHECKER this procedure are in the results section. ECG Routine 03/19/2021 6:44 Results for AM MECHANICAL CAR CHECKER this procedure are in the results section. ADULT OXYGEN THERAPY Routine 03/18/2021 8:01 PM MECHANICAL CAR CHECKER PULSE OXIMETRY, Routine 03/18/2021 8:01 CONTINUOUS PM MECHANICAL CAR CHECKER HEMOGLOBIN, B Routine 03/18/2021 7:00 Results for PM MECHANICAL CAR CHECKER this procedure are in the results section. AMMONIA Routine 03/18/2021 6:59 Results for PM MECHANICAL CAR CHECKER this procedure are in the results section. PROTHROMBIN TIME (PT), Routine 03/18/2021 8:35 Re sults for P AM MECHANICAL CAR CHECKER this procedure are in the results section. CBC WITH DIFFERENTIAL, Routine 03/18/2021 8:35 Re sults for B AM MECHANICAL CAR CHECKER this procedure are in the results section. COMPREHENSIVE Routine 03/18/2021 8:35 Results for METABOLIC PANEL, S/P AM MECHANICAL CAR CHECKER this pr ocedure are in the results section. ADULT OXYGEN THERAPY Routine 03/18/2021 8:02 AM MECHANICAL CAR CHECKER PULSE OXIMETRY, Routine 03/18/2021 8:02 CONTINUOUS AM MECHANICAL CAR CHECKER ADULT OXYGEN THERAPY Routine 03/17/2021 8:01 PM MECHANICAL CAR CHECKER PULSE OXIMETRY, Routine 03/17/2021 8:01 CONTINUOUS PM MECHANICAL CAR CHECKER ADULT OXYGEN THERAPY Routine 03/17/2021 8:01 AM MECHANICAL CAR CHECKER PULSE OXIMETRY, Routine 03/17/2021 8:01 CONTINUOUS AM MECHANICAL CAR CHECKER CBC WITH DIFFERENTIAL, Routine 03/17/2021 6:35 Re sults for B AM MECHANICAL CAR CHECKER this procedure are in the results section. MAGNESIUM, S Routine 03/17/2021 6:35 Results for AM MECHANICAL CAR CHECKER this procedure are in the results section. BASIC METABOLIC PANEL, Routine 03/17/2021 6:35 Re sults for S/P AM MECHANICAL CAR CHECKER this procedure are in the results section. ADULT OXYGEN THERAPY Routine 03/16/2021 8:00 PM MECHANICAL CAR CHECKER PULSE OXIMETRY, Routine 03/16/2021 8:00 CONTINUOUS PM MECHANICAL CAR CHECKER HEMOGLOBIN, B Timed 03/16/2021 4:14 Results for PM MECHANICAL CAR CHECKER this procedure are in the results section. HEMATOCRIT, B Timed 03/16/2021 4:14 Results for PM MECHANICAL CAR CHECKER this procedure are in the results section. HEMOGLOBIN, B STAT 03/16/2021 Results for 12:58 PM MECHANICAL CAR CHECKER this procedure are in the results section. HEMATOCRIT, B STAT 03/16/2021 Results for 12:58 PM MECHANICAL CAR CHECKER this procedure are in the results section. TRANSFUSE RED BLOOD Routine 03/16/2021 CELLS 11:13 AM MECHANICAL CAR CHECKER TRANSFUSE RED BLOOD Routine 03/16/2021 CELLS 10:32 AM MECHANICAL CAR CHECKER TRANSFUSE FRESH FROZEN Routine 03/16/2021 9:58 PLASMA AM MECHANICAL CAR CHECKER TRANSFUSE FRESH FROZEN Routine 03/16/2021 9:20 PLASMA AM MECHANICAL CAR CHECKER ADULT OXYGEN THERAPY Routine 03/16/2021 8:00 AM MECHANICAL CAR CHECKER PULSE OXIMETRY, Routine 03/16/2021 8:00 CONTINUOUS AM MECHANICAL CAR CHECKER TRANSFUSE RED BLOOD Routine 03/16/2021 7:35 CELLS AM MECHANICAL CAR CHECKER ACTIVATED PARTIAL STAT 03/16/2021 7:32 Results for THROMBOPLASTIN TIME AM MECHANICAL CAR CHECKER this pro cedure (APTT), P are in the results section. PROTHROMBIN TIME (PT), STAT 03/16/2021 7:32 Re sults for P AM MECHANICAL CAR CHECKER this procedure are in the results section. FIBRINOGEN, P STAT 03/16/2021 7:32 Results for AM MECHANICAL CAR CHECKER this procedure are in the results section. HEMOGLOBIN, B STAT 03/16/2021 7:31 Results for AM MECHANICAL CAR CHECKER this procedure are in the results section. TESTING LOCATION STAT 03/16/2021 5:44 Results for AM MECHANICAL CAR CHECKER this procedure are in the results section. PREPARE FRESH FROZEN STAT 03/16/2021 5:44 PLASMA AM MECHANICAL CAR CHECKER PREPARE FRESH FROZEN STAT 03/16/2021 5:44 PLASMA AM MECHANICAL CAR CHECKER PREPARE RED BLOOD STAT 03/16/2021 5:44 CELLS AM MECHANICAL CAR CHECKER PREPARE RED BLOOD STAT 03/16/2021 5:44 CELLS AM MECHANICAL CAR CHECKER PREPARE RED BLOOD STAT 03/16/2021 5:44 CELLS AM MECHANICAL CAR CHECKER TYPE AND SCREEN STAT 03/16/2021 5:44 Results f or AM MECHANICAL CAR CHECKER this procedure are in the results section. GLUCOSE POCT, B Routine 03/16/2021 5:43 Results f or AM MECHANICAL CAR CHECKER this procedure are in the results section. PH BLOOD GAS Routine 03/16/2021 4:57 Results for AM MECHANICAL CAR CHECKER this procedure are in the results section. CALCIUM, IONIZED, S/B Routine 03/16/2021 4:57 Res ults for AM MECHANICAL CAR CHECKER this procedure are in the results section. CBC WITHOUT Timed 03/16/2021 4:21 Results for DIFFERENTIAL, B AM MECHANICAL CAR CHECKER this procedu re are in the results section. PHOSPHORUS Timed 03/16/2021 4:21 Results for (INORGANIC), S AM MECHANICAL CAR CHECKER this procedur e are in the results section. MAGNESIUM, S Timed 03/16/2021 4:21 Results for AM MECHANICAL CAR CHECKER this procedure are in the results section. COMPREHENSIVE Timed 03/16/2021 4:21 Results for METABOLIC PANEL, S/P AM MECHANICAL CAR CHECKER this pr ocedure are in the results section. TRANSFUSE FRESH FROZEN Routine 03/16/2021 3:30 PLASMA AM MECHANICAL CAR CHECKER TRANSFUSE Routine 03/16/2021 3:18 CRYOPRECIPITATE AM MECHANICAL CAR CHECKER TRANSFUSE Routine 03/16/2021 2:42 CRYOPRECIPITATE AM MECHANICAL CAR CHECKER CT ABDOMEN PELVIS WITH RAD - Routine 03/16/2021 2:36 R esults for IV CONTRAST (most inpatients AM MECHANICAL CAR CHECKER this proced ure and all are in the outpatients) results section. TEST, POCT, Routine 03/16/2021 2:11 Res ults for U (LAB) AM MECHANICAL CAR CHECKER this procedure are in the results section. PREPARE FRESH FROZEN Routine 03/16/2021 2:05 PLASMA AM MECHANICAL CAR CHECKER PREPARE Routine 03/16/2021 2:05 CRYOPRECIPITATE AM MECHANICAL CAR CHECKER ACTIVATED PARTIAL STAT 03/16/2021 1:11 Results for THROMBOPLASTIN TIME AM MECHANICAL CAR CHECKER this pro cedure (APTT), P are in the results section. PROTHROMBIN TIME (PT), STAT 03/16/2021 1:11 Re sults for P AM MECHANICAL CAR CHECKER this procedure are in the results section. FIBRINOGEN, P STAT 03/16/2021 1:11 Results for AM MECHANICAL CAR CHECKER this procedure are in the results section. HEMOGLOBIN, B Timed 03/16/2021 Results for 12:08 AM MECHANICAL CAR CHECKER this procedure are in the results section. POTASSIUM, S/P Routine 03/16/2021 Results for 12:08 AM MECHANICAL CAR CHECKER this procedure are in the results section. GLUCOSE POCT, B Routine 03/15/2021 Results for 11:33 PM MECHANICAL CAR CHECKER this procedure are in the results section. TRANSFUSE RED BLOOD Routine 03/15/2021 9:33 CELLS PM MECHANICAL CAR CHECKER HEMOGLOBIN, B Timed 03/15/2021 8:11 Results for PM MECHANICAL CAR CHECKER this procedure are in the results section. ADULT OXYGEN THERAPY Routine 03/15/2021 8:01 PM MECHANICAL CAR CHECKER PULSE OXIMETRY, Routine 03/15/2021 8:01 CONTINUOUS PM MECHANICAL CAR CHECKER HEMOGLOBIN, B Timed 03/15/2021 4:52 Results for PM MECHANICAL CAR CHECKER this procedure are in the results section. HEMATOCRIT, B Timed 03/15/2021 4:52 Results for PM MECHANICAL CAR CHECKER this procedure are in the results section. TRANSFUSE FRESH FROZEN Routine 03/15/2021 3:52 PLASMA PM MECHANICAL CAR CHECKER HEMOGLOBIN, B Timed 03/15/2021 2:29 Results for PM MECHANICAL CAR CHECKER this procedure are in the results section. HEMATOCRIT, B Timed 03/15/2021 2:29 Results for PM MECHANICAL CAR CHECKER this procedure are in the results section. PHOSPHORUS Routine 03/15/2021 2:29 Results for (INORGANIC), S PM MECHANICAL CAR CHECKER this procedur e are in the results section. MAGNESIUM, S Routine 03/15/2021 2:29 Results for PM MECHANICAL CAR CHECKER this procedure are in the results section. BASIC METABOLIC PANEL, Timed 03/15/2021 2:29 Re sults for S/P PM MECHANICAL CAR CHECKER this procedure are in the results section. RESPIRATORY ASSESS AND Routine 03/15/2021 2:00 TREAT PM MECHANICAL CAR CHECKER TRANSFUSE FRESH FROZEN Routine 03/15/2021 1:47 PLASMA PM MECHANICAL CAR CHECKER PREPARE FRESH FROZEN Routine 03/15/2021 PLASMA 12:06 PM MECHANICAL CAR CHECKER GLUCOSE POCT, B Routine 03/15/2021 Results for 11:57 AM MECHANICAL CAR CHECKER this procedure are in the results section. TRANSFUSE RED BLOOD Routine 03/15/2021 CELLS 11:00 AM MECHANICAL CAR CHECKER ADULT OXYGEN THERAPY Routine 03/15/2021 8:01 AM MECHANICAL CAR CHECKER PULSE OXIMETRY, Routine 03/15/2021 8:01 CONTINUOUS AM MECHANICAL CAR CHECKER GLUCOSE POCT, B Routine 03/15/2021 6:14 Results f or AM MECHANICAL CAR CHECKER this procedure are in the results section. PROTHROMBIN TIME (PT), Routine 03/15/2021 4:18 Re sults for P AM MECHANICAL CAR CHECKER this procedure are in the results section. CBC WITHOUT Routine 03/15/2021 4:18 Results for DIFFERENTIAL, B AM MECHANICAL CAR CHECKER this procedu re are in the results section. PHOSPHORUS Routine 03/15/2021 4:18 Results for (INORGANIC), S AM MECHANICAL CAR CHECKER this procedur e are in the results section. MAGNESIUM, S Routine 03/15/2021 4:18 Results for AM MECHANICAL CAR CHECKER this procedure are in the results section. COMPREHENSIVE Routine 03/15/2021 4:18 Results for METABOLIC PANEL, S/P AM MECHANICAL CAR CHECKER this pr ocedure are in the results section. GLUCOSE POCT, B Routine 03/14/2021 Results for 11:43 PM MECHANICAL CAR CHECKER this procedure are in the results section. ADULT OXYGEN THERAPY Routine 03/14/2021 8:01 PM MECHANICAL CAR CHECKER PULSE OXIMETRY, Routine 03/14/2021 8:01 CONTINUOUS PM MECHANICAL CAR CHECKER GLUCOSE POCT, B Routine 03/14/2021 6:25 Results f or PM MECHANICAL CAR CHECKER this procedure are in the results section. RESPIRATORY ASSESS AND Routine 03/14/2021 2:00 TREAT PM MECHANICAL CAR CHECKER GLUCOSE POCT, B Routine 03/14/2021 Results for 11:32 AM MECHANICAL CAR CHECKER this procedure are in the results section. PATIENT STATUS STAT 03/14/2021 Results for 11:00 AM MECHANICAL CAR CHECKER this procedure are in the results section. ABG W/COOX STAT 03/14/2021 Results for 11:00 AM MECHANICAL CAR CHECKER this procedure are in the results section. PROTHROMBIN TIME (PT), Routine 03/14/2021 9:22 Re sults for P AM MECHANICAL CAR CHECKER this procedure are in the results section. ADULT OXYGEN THERAPY Routine 03/14/2021 8:01 AM MECHANICAL CAR CHECKER PULSE OXIMETRY, Routine 03/14/2021 8:01 CONTINUOUS AM MECHANICAL CAR CHECKER GLUCOSE POCT, B Routine 03/14/2021 6:28 Results f or AM MECHANICAL CAR CHECKER this procedure are in the results section. PATIENT STATUS Routine 03/14/2021 5:41 Results fo r AM MECHANICAL CAR CHECKER this procedure are in the results section. PH BLOOD GAS Routine 03/14/2021 5:41 Results for AM MECHANICAL CAR CHECKER this procedure are in the results section. ABG W/COOX Routine 03/14/2021 5:41 Results for AM MECHANICAL CAR CHECKER this procedure are in the results section. CBC WITHOUT Routine 03/14/2021 5:41 Results for DIFFERENTIAL, B AM MECHANICAL CAR CHECKER this procedu re are in the results section. PHOSPHORUS Routine 03/14/2021 5:41 Results for (INORGANIC), S AM MECHANICAL CAR CHECKER this procedur e are in the results section. MAGNESIUM, S Routine 03/14/2021 5:41 Results for AM MECHANICAL CAR CHECKER this procedure are in the results section. CALCIUM, IONIZED, S/B Routine 03/14/2021 5:41 Res ults for AM MECHANICAL CAR CHECKER this procedure are in the results section. BASIC METABOLIC PANEL, Routine 03/14/2021 5:41 Re sults for S/P AM MECHANICAL CAR CHECKER this procedure are in the results section. HEPATIC FUNCTION Routine 03/14/2021 5:40 Results for PANEL, S AM MECHANICAL CAR CHECKER this procedure are in the results section. DX CHEST PORTABLE 1 RAD - Routine 03/14/2021 4:33 Resu lts for VIEW (most inpatients AM MECHANICAL CAR CHECKER this proced ure and all are in the outpatients) results section. GLUCOSE POCT, B Routine 03/14/2021 Results for 12:06 AM MECHANICAL CAR CHECKER this procedure are in the results section. ADULT OXYGEN THERAPY Routine 03/13/2021 8:01 PM MECHANICAL CAR CHECKER PULSE OXIMETRY, Routine 03/13/2021 8:01 CONTINUOUS PM MECHANICAL CAR CHECKER HEMOGLOBIN, B Routine 03/13/2021 6:29 Results for PM MECHANICAL CAR CHECKER this procedure are in the results section. GLUCOSE POCT, B Routine 03/13/2021 6:16 Results f or PM MECHANICAL CAR CHECKER this procedure are in the results section. HEMOGLOBIN, B Routine 03/13/2021 4:28 Results for PM MECHANICAL CAR CHECKER this procedure are in the results section. MECHANICAL VENTILATOR Routine 03/13/2021 4:00 PM MECHANICAL CAR CHECKER RESPIRATORY ASSESS AND Routine 03/13/2021 2:00 TREAT PM MECHANICAL CAR CHECKER MECHANICAL VENTILATOR Routine 03/13/2021 12:00 PM MECHANICAL CAR CHECKER GLUCOSE POCT, B Routine 03/13/2021 Results for 11:46 AM MECHANICAL CAR CHECKER this procedure are in the results section. TRANSFUSE RED BLOOD Routine 03/13/2021 CELLS 10:11 AM MECHANICAL CAR CHECKER IRON AND TOT Routine 03/13/2021 8:28 Results for IRON-BINDING CAPACITY, AM MECHANICAL CAR CHECKER this procedure S/P are in the results section. FOLATE, S Routine 03/13/2021 8:28 Results for AM MECHANICAL CAR CHECKER this procedure are in the results section. FERRITIN, S Routine 03/13/2021 8:28 Results for AM MECHANICAL CAR CHECKER this procedure are in the results section. VITAMIN B12 ASSAY, S Routine 03/13/2021 8:28 Resu lts for AM MECHANICAL CAR CHECKER this procedure are in the results section. ADULT OXYGEN THERAPY Routine 03/13/2021 8:01 AM MECHANICAL CAR CHECKER PULSE OXIMETRY, Routine 03/13/2021 8:01 CONTINUOUS AM MECHANICAL CAR CHECKER MECHANICAL VENTILATOR Routine 03/13/2021 8:01 AM MECHANICAL CAR CHECKER PATIENT STATUS Routine 03/13/2021 5:37 Results fo r AM MECHANICAL CAR CHECKER this procedure are in the results section. ABG W/COOX Routine 03/13/2021 5:37 Results for AM MECHANICAL CAR CHECKER this procedure are in the results section. CBC WITH DIFFERENTIAL, Routine 03/13/2021 5:37 Re sults for B AM MECHANICAL CAR CHECKER this procedure are in the results section. TRIGLYCERIDES, S Routine 03/13/2021 5:37 Results for AM MECHANICAL CAR CHECKER this procedure are in the results section. PHOSPHORUS Routine 03/13/2021 5:37 Results for (INORGANIC), S AM MECHANICAL CAR CHECKER this procedur e are in the results section. MAGNESIUM, S Routine 03/13/2021 5:37 Results for AM MECHANICAL CAR CHECKER this procedure are in the results section. AMMONIA Routine 03/13/2021 5:37 Results for AM MECHANICAL CAR CHECKER this procedure are in the results section. COMPREHENSIVE Routine 03/13/2021 5:37 Results for METABOLIC PANEL, S/P AM MECHANICAL CAR CHECKER this pr ocedure are in the results section. DX CHEST PORTABLE 1 RAD - Routine 03/13/2021 4:32 Resu lts for VIEW (most inpatients AM MECHANICAL CAR CHECKER this proced ure and all are in the outpatients) results section. MECHANICAL VENTILATOR Routine 03/13/2021 4:00 AM MECHANICAL CAR CHECKER BASIC METABOLIC PANEL, Timed 03/13/2021 1:20 Re sults for S/P AM MECHANICAL CAR CHECKER this procedure are in the results section. HEMOGLOBIN, B Timed 03/13/2021 Results for 12:11 AM MECHANICAL CAR CHECKER this procedure are in the results section. MECHANICAL VENTILATOR Routine 03/13/2021 12:04 AM MECHANICAL CAR CHECKER GLUCOSE POCT, B Routine 03/12/2021 Results for 11:44 PM MECHANICAL CAR CHECKER this procedure are in the results section. ETHYL GLUCURONIDE SCRN Routine 03/12/2021 Resul ts for W/REFLEX, U 11:12 PM MECHANICAL CAR CHECKER this procedure are in the results section. LDA ANE ENDOTRACHEAL Routine 03/12/2021 Change Mental Result s for AIRWAY 10:30 PM MECHANICAL CAR CHECKER Status this procedure Cirrhosis are in the Alcoholic (HCC) results section. [place] INTUB W ETT Routine 03/12/2021 Change Mental Results for 10:30 PM MECHANICAL CAR CHECKER Status this procedure Cirrhosis are in the Alcoholic (HCC) results section. ADULT OXYGEN THERAPY Routine 03/12/2021 8:01 PM MECHANICAL CAR CHECKER PULSE OXIMETRY, Routine 03/12/2021 8:01 CONTINUOUS PM MECHANICAL CAR CHECKER MECHANICAL VENTILATOR Routine 03/12/2021 8:01 PM MECHANICAL CAR CHECKER GLUCOSE POCT, B Routine 03/12/2021 6:11 Results f or PM MECHANICAL CAR CHECKER this procedure are in the results section. [place] PARACENTESIS ABD WO Routine 03/12/2021 6:02 Change Mental R esults for IMG PM MECHANICAL CAR CHECKER Status this procedure Cirrhosis are in the Alcoholic (HCC) results section. THORACENTESIS Routine 03/12/2021 6:02 Change Mental Results fo r PM MECHANICAL CAR CHECKER Status this procedure Cirrhosis are in the Alcoholic (HCC) results section. MC ANE CENTRAL LINE Routine 03/12/2021 6:02 Change Mental Resu lts for GENERIC PERFORMABLE PM MECHANICAL CAR CHECKER Status this procedure Cirrhosis are in the Alcoholic (HCC) results section. LDA ANE CENTRAL LINE Routine 03/12/2021 6:02 Change Mental Res ults for TRIPLE LUMEN PM MECHANICAL CAR CHECKER Status this procedure Cirrhosis are in the Alcoholic (HCC) results section. W[place] US GUIDE VASC Routine 03/12/2021 6:02 Change Mental Results for ACCESS PM MECHANICAL CAR CHECKER Status this procedure Cirrhosis are in the Alcoholic (HCC) results section. W[place] INS NON-ALEN CVC Routine 03/12/2021 6:02 Change Mental Resul ts for >5YR PM MECHANICAL CAR CHECKER Status this procedure Cirrhosis are in the Alcoholic (HCC) results section. PH BLOOD GAS STAT 03/12/2021 5:35 Results for PM MECHANICAL CAR CHECKER this procedure are in the results section. HEMOGLOBIN, B STAT 03/12/2021 5:35 Results for PM MECHANICAL CAR CHECKER this procedure are in the results section. PHOSPHORUS STAT 03/12/2021 5:35 Results for (INORGANIC), S PM MECHANICAL CAR CHECKER this procedur e are in the results section. MAGNESIUM, S STAT 03/12/2021 5:35 Results for PM MECHANICAL CAR CHECKER this procedure are in the results section. CALCIUM, IONIZED, S/B STAT 03/12/2021 5:35 Res ults for PM MECHANICAL CAR CHECKER this procedure are in the results section. AMMONIA STAT 03/12/2021 5:35 Results for PM MECHANICAL CAR CHECKER this procedure are in the results section. COMPREHENSIVE STAT 03/12/2021 5:35 Results for METABOLIC PANEL, S/P PM MECHANICAL CAR CHECKER this pr ocedure are in the results section. TRANSFUSE RED BLOOD Routine 03/12/2021 4:08 CELLS PM MECHANICAL CAR CHECKER MECHANICAL VENTILATOR Routine 03/12/2021 4:00 PM MECHANICAL CAR CHECKER PROTEIN, TOTAL, BF Routine 03/12/2021 3:46 Result s for PM MECHANICAL CAR CHECKER this procedure are in the results section. BACTERIAL CULTURE, Routine 03/12/2021 3:46 Result s for AEROBIC + SUSC PM MECHANICAL CAR CHECKER this procedur e are in the results section. CELL COUNT AND Routine 03/12/2021 3:46 Results fo r DIFFERENTIAL, BF PM MECHANICAL CAR CHECKER this proced ure are in the results section. GRAM STAIN Routine 03/12/2021 3:46 Results for PM MECHANICAL CAR CHECKER this procedure are in the results section. BACTERIAL CULTURE, Routine 03/12/2021 3:46 Result s for ANAEROBIC + SUSC PM MECHANICAL CAR CHECKER this proced ure are in the results section. ALBUMIN, BODY FLUID Routine 03/12/2021 3:46 Resul ts for PM MECHANICAL CAR CHECKER this procedure are in the results section. AUTOIMMUNE LIVER Routine 03/12/2021 2:57 Results for DISEASE PANEL, S PM MECHANICAL CAR CHECKER this proced ure are in the results section. [id number], S Routine 03/12/2021 2:57 Re sults for PM MECHANICAL CAR CHECKER this procedure are in the results section. CERULOPLASMIN, S Routine 03/12/2021 2:57 Results for PM MECHANICAL CAR CHECKER this procedure are in the results section. GLUCOSE POCT, B Routine 03/12/2021 2:06 Results f or PM MECHANICAL CAR CHECKER this procedure are in the results section. RESPIRATORY ASSESS AND Routine 03/12/2021 2:00 TREAT PM MECHANICAL CAR CHECKER CT ABDOMEN PELVIS WITH RAD - Emergent 03/12/2021 1:50 Results for IV CONTRAST (Fastest; for the PM MECHANICAL CAR CHECKER this proce dure most critically are in the ill patients) results section. CT CHEST WITH IV RAD - Emergent 03/12/2021 1:50 Result s for CONTRAST (Fastest; for the PM MECHANICAL CAR CHECKER this proce dure most critically are in the ill patients) results section. CT HEAD WITHOUT IV RAD - Emergent 03/12/2021 1:49 Resu lts for CONTRAST (Fastest; for the PM MECHANICAL CAR CHECKER this proce dure most critically are in the ill patients) results section. CYTOLOGY NON-CAKE WRINGER Routine 03/12/2021 1:11 Results for PM MECHANICAL CAR CHECKER this procedure are in the results section. ECG Routine 03/12/2021 1:01 Results for PM MECHANICAL CAR CHECKER this procedure are in the results section. DX CHEST PORTABLE 1 RAD - Semiurgent 03/12/2021 1:00 R esults for VIEW (Fast; most ED PM MECHANICAL CAR CHECKER this procedur e patients; some are in the inpatients) results section. TESTING LOCATION Routine 03/12/2021 Results for 12:59 PM MECHANICAL CAR CHECKER this procedure are in the results section. LACTATE, B STAT 03/12/2021 Results for 12:59 PM MECHANICAL CAR CHECKER this procedure are in the results section. PATIENT STATUS STAT 03/12/2021 Results for 12:59 PM MECHANICAL CAR CHECKER this procedure are in the results section. ABG W/COOX STAT 03/12/2021 Results for 12:59 PM MECHANICAL CAR CHECKER this procedure are in the results section. PREPARE RED BLOOD Routine 03/12/2021 CELLS 12:59 PM MECHANICAL CAR CHECKER PREPARE RED BLOOD Routine 03/12/2021 CELLS 12:59 PM MECHANICAL CAR CHECKER PREPARE RED BLOOD Routine 03/12/2021 CELLS 12:59 PM MECHANICAL CAR CHECKER PREPARE RED BLOOD Routine 03/12/2021 CELLS 12:59 PM MECHANICAL CAR CHECKER TYPE AND SCREEN Routine 03/12/2021 Results for 12:59 PM MECHANICAL CAR CHECKER this procedure are in the results section. LACTATE DEHYDROGENASE Routine 03/12/2021 Result s for (LD), S 12:59 PM MECHANICAL CAR CHECKER this procedure are in the results section. BILIRUBIN DIRECT, S/P Routine 03/12/2021 Result s for 12:59 PM MECHANICAL CAR CHECKER this procedure are in the results section. CYTOLOGY NON-CAKE WRINGER Routine 03/12/2021 Results for 12:39 PM MECHANICAL CAR CHECKER this procedure are in the results section. PROTEIN, TOTAL, BF Routine 03/12/2021 Results f or 12:35 PM MECHANICAL CAR CHECKER this procedure are in the results section. LACTATE DEHYDROGENASE Routine 03/12/2021 Result s for (LD), BF 12:35 PM MECHANICAL CAR CHECKER this procedure are in the results section. BACTERIAL CULTURE, STAT 03/12/2021 Results f or AEROBIC + SUSC 12:34 PM MECHANICAL CAR CHECKER this procedur e are in the results section. CELL COUNT AND STAT 03/12/2021 Results for DIFFERENTIAL, BF 12:34 PM MECHANICAL CAR CHECKER this proced ure are in the results section. GRAM STAIN STAT 03/12/2021 Results for 12:34 PM MECHANICAL CAR CHECKER this procedure are in the results section. BACTERIAL CULTURE, STAT 03/12/2021 Results f or ANAEROBIC + SUSC 12:34 PM MECHANICAL CAR CHECKER this proced ure are in the results section. GLUCOSE, BODY FLUID STAT 03/12/2021 Results for 12:34 PM MECHANICAL CAR CHECKER this procedure are in the results section. MECHANICAL VENTILATOR Routine 03/12/2021 12:00 PM MECHANICAL CAR CHECKER ADULT OXYGEN THERAPY Routine 03/12/2021 11:32 AM MECHANICAL CAR CHECKER ADULT OXYGEN THERAPY Routine 03/12/2021 11:32 AM MECHANICAL CAR CHECKER ADULT OXYGEN THERAPY Routine 03/12/2021 11:32 AM MECHANICAL CAR CHECKER MECHANICAL VENTILATOR Routine 03/12/2021 11:32 AM MECHANICAL CAR CHECKER MECHANICAL VENTILATOR Routine 03/12/2021 11:32 AM MECHANICAL CAR CHECKER MECHANICAL VENTILATOR Routine 03/12/2021 11:32 AM MECHANICAL CAR CHECKER MECHANICAL VENTILATOR Routine 03/12/2021 11:32 AM MECHANICAL CAR CHECKER MECHANICAL VENTILATOR Routine 03/12/2021 11:32 AM MECHANICAL CAR CHECKER INFLUENZA A/B AND RSV, Routine 03/12/2021 Resul ts for PCR, VARIES 11:00 AM MECHANICAL CAR CHECKER this procedure are in the results section. SARS CORONAVIRUS-2 Routine 03/12/2021 Results f or RNA, V 11:00 AM MECHANICAL CAR CHECKER this procedure are in the results section. LDA ANE ARTERIAL LINE Routine 03/12/2021 Change Mental Resul ts for INSERTION 10:45 AM MECHANICAL CAR CHECKER Status this procedure Cirrhosis are in the Alcoholic (HCC) results section. [place] ARTL CATH/CNULA Routine 03/12/2021 Change Mental Results for MONITOR PERC 10:45 AM MECHANICAL CAR CHECKER Status this procedure Cirrhosis are in the Alcoholic (HCC) results section. PULSE OXIMETRY, Routine 03/12/2021 8:02 CONTINUOUS AM MECHANICAL CAR CHECKER LACTATE, B Timed 03/12/2021 7:10 Results for AM MECHANICAL CAR CHECKER this procedure are in the results section. PATIENT STATUS STAT 03/12/2021 7:10 Results fo r AM MECHANICAL CAR CHECKER this procedure are in the results section. ABG W/COOX STAT 03/12/2021 7:10 Results for AM MECHANICAL CAR CHECKER this procedure are in the results section. BACTERIA / RAUDEL Routine 03/12/2021 7:10 Result s for CULTURE, BLOOD AM MECHANICAL CAR CHECKER this procedur e are in the results section. DX CHEST PORTABLE 1 RAD - Semiurgent 03/12/2021 6:24 R esults for VIEW (Fast; most ED AM MECHANICAL CAR CHECKER this procedur e patients; some are in the inpatients) results section. URINALYSIS WITH Routine 03/12/2021 6:23 Results f or MICROSCOPIC IF AM MECHANICAL CAR CHECKER this procedur e INDICATED, U are in the results section. HC URINALYSIS AUTO WO Routine 03/12/2021 6:23 Res ults for MICRO AM MECHANICAL CAR CHECKER this procedure are in the results section. DRUG SCREEN URINE Routine 03/12/2021 6:23 Results for AM MECHANICAL CAR CHECKER this procedure are in the results section. NASAL SCREEN FOR MRSA Routine 03/12/2021 6:23 Res ults for BY RAPID PCR AM MECHANICAL CAR CHECKER this procedure are in the results section. HCV AB W/REFLEX TO HCV Timed 03/12/2021 5:58 Re sults for PCR, S AM MECHANICAL CAR CHECKER this procedure are in the results section. HEPATITIS A IGM AB Timed 03/12/2021 5:58 Result s for AM MECHANICAL CAR CHECKER this procedure are in the results section. HEP B CORE AB, IGM Timed 03/12/2021 5:58 Result s for AM MECHANICAL CAR CHECKER this procedure are in the results section. HEPATITIS B SURFACE Timed 03/12/2021 5:58 Resul ts for ANTIGEN AM MECHANICAL CAR CHECKER this procedure are in the results section. AMMONIA Timed 03/12/2021 5:58 Results for AM MECHANICAL CAR CHECKER this procedure are in the results section. LACTATE, B STAT 03/12/2021 5:57 Results for AM MECHANICAL CAR CHECKER this procedure are in the results section. ETHANOL, S STAT 03/12/2021 5:57 Results for AM MECHANICAL CAR CHECKER this procedure are in the results section. PH BLOOD GAS STAT 03/12/2021 5:57 Results for AM MECHANICAL CAR CHECKER this procedure are in the results section. NT-PRO B-TYPE STAT 03/12/2021 5:57 Results for NATRIURETIC PEPTIDE AM MECHANICAL CAR CHECKER this pro cedure (BNP), S are in the results section. BACTERIA / RAUDEL Routine 03/12/2021 5:57 Result s for CULTURE, BLOOD AM MECHANICAL CAR CHECKER this procedur e are in the results section. PROTHROMBIN TIME (PT), STAT 03/12/2021 5:57 Re sults for P AM MECHANICAL CAR CHECKER this procedure are in the results section. CBC WITHOUT STAT 03/12/2021 5:57 Results for DIFFERENTIAL, B AM MECHANICAL CAR CHECKER this procedu re are in the results section. HUMAN CHORIONIC STAT 03/12/2021 5:57 Results f or GONADOTROPIN (HCG), AM MECHANICAL CAR CHECKER this pro cedure EDDI, are in the results section. THYROID-STIMULATING STAT 03/12/2021 5:57 Resul ts for HORMONE-SENSITIVE AM MECHANICAL CAR CHECKER this proce dure (S-TSH) are in the results section. PHOSPHORUS STAT 03/12/2021 5:57 Results for (INORGANIC), S AM MECHANICAL CAR CHECKER this procedur e are in the results section. MAGNESIUM, S STAT 03/12/2021 5:57 Results for AM MECHANICAL CAR CHECKER this procedure are in the results section. LIPASE, S/P STAT 03/12/2021 5:57 Results for AM MECHANICAL CAR CHECKER this procedure are in the results section. CALCIUM, IONIZED, S/B STAT 03/12/2021 5:57 Res ults for AM MECHANICAL CAR CHECKER this procedure are in the results section. ACETAMINOPHEN LEVEL, S STAT 03/12/2021 5:57 Re sults for AM MECHANICAL CAR CHECKER this procedure are in the results section. SALICYLATE LEVEL, S STAT 03/12/2021 5:57 Resul ts for AM MECHANICAL CAR CHECKER this procedure are in the results section. COMPREHENSIVE STAT 03/12/2021 5:57 Results for METABOLIC PANEL, S/P AM MECHANICAL CAR CHECKER this pr ocedure are in the results section. GLUCOSE POCT, B Routine 03/12/2021 5:48 Results f or AM MECHANICAL CAR CHECKER this procedure are in the results section. RESPIRATORY ASSESS AND Routine 03/12/2021 5:37 TREAT AM MECHANICAL CAR CHECKER PULSE OXIMETRY, Routine 03/12/2021 5:37 CONTINUOUS AM MECHANICAL CAR CHECKER PULSE OXIMETRY, Routine 03/12/2021 5:37 CONTINUOUS AM MECHANICAL CAR CHECKER PULSE OXIMETRY, Routine 03/12/2021 5:37 CONTINUOUS AM MECHANICAL CAR CHECKER documented in this encounter Results (ABNORMAL) Prothrombin Time (PT) (03/24/2021 6:15 AM MECHANICAL CAR CHECKER) [facility] Method Time Signature Prothrombin 30.1 (H) 9.4 - 12.5 03/24/2021 MKTO Time, P sec 6:52 AM MECHANICAL CAR CHECKER INR 2.7 0.9 - 1.1 03/24/2021 MKTO 6:52 AM MECHANICAL CAR CHECKER Comment: ----ADDITIONAL INFORMATION---- Standard intensity warfarin therapeutic range: 2.0 to 3.0 ?? High intensity warfarin therapeutic rang e: 2.5 to 3.5 Specimen Anatomical Collection Method Collection Time Receive d Time (Source) Location / / Volume Laterality Blood (Blood, 03/24/2021 6:15 AM 03/24/20 6:21 Venous) MECHANICAL CAR CHECKER AM MECHANICAL CAR CHECKER Darian Thomas M.D., J.D. LAB BLOOD ADD-ON Performing Organization Address City/State/ZIP Code Phon e Number [facility]- [address] [place] [address] [facility] [place] [address] System in [place] [address] [facility] (ABNORMAL) Comprehensive Metabolic Panel (03/24/2021 6:15 AM MECHANICAL CAR CHECKER) [facility] Time Signature Potassium, P 4.1 3.6 - 5.2 03/24/2021 MKTO mmol/L 6:54 AM MECHANICAL CAR CHECKER Sodium, P 139 135 - 145 03/24/2021 MKTO mmol/L 6:54 AM MECHANICAL CAR CHECKER Chloride, P 108 (H) 98 - 107 03/24/2021 MKTO mmol/L 6:54 AM MECHANICAL CAR CHECKER Bicarbonate, P 18 (L) 22 - 29 03/24/2021 MKTO mmol/L 6:54 AM MECHANICAL CAR CHECKER Anion Gap, P 13 7 - 15 03/24/2021 MKTO 6:54 AM MECHANICAL CAR CHECKER BUN (Blood Urea 6 6 - 21 03/24/2021 MKTO Nitrogen), P mg/dL 6:54 AM MECHANICAL CAR CHECKER Creatinine 0.35 (L) 0.59 - 03/24/2021 MKTO 1.04 mg/dL 6:54 AM MECHANICAL CAR CHECKER eGFR-Black/Afri >90 >=60 03/24/2021 MKTO can [place] mL/min/BSA 6:54 AM MECHANICAL CAR CHECKER Comment: ----ADDITIONAL INFORMATION---- Estimated GFR calculated using the 2009 CKD_EPI creatinine equation. eGFR Non-Black/ >90 >=60 mL/min/BSA 03/24/2021 6:54 AM MECHANICAL CAR CHECKER MKTO Comment: ----ADDITIONAL INFORMATION---- Estimated GFR calculated using the 2009 CKD_EPI creatinine equation. Calcium, Total, P 10.3 (H) 8.6 - 10.0 mg/dL 03/24/2021 6:54 AM MECHANICAL CAR CHECKER MKTO Glucose, P 120 70 - 140 mg/dL 03/24/2021 6:54 AM MECHANICAL CAR CHECKER M KTO Protein, Total, P 6.5 6.3 - 7.9 g/dL 03/24/2021 6:54 A M MECHANICAL CAR CHECKER MKTO Albumin, P 5.3 (H) 3.5 - 5.0 g/dL 03/24/2021 6:54 AM MECHANICAL CAR CHECKER M KTO Aspartate Aminotransferase 46 (H) 8 - 43 U/L 03/24/2021 6 :54 AM MECHANICAL CAR CHECKER MKTO (AST), P Alkaline Phosphatase, P 77 35 - 104 U/L 03/24/2021 6: 54 AM MECHANICAL CAR CHECKER MKTO Alanine Aminotransferase 20 7 - 45 U/L 03/24/2021 6:5 4 AM MECHANICAL CAR CHECKER MKTO (ALT), P Bilirubin, Total, P 7.8 (H) <=1.2 mg/dL 03/24/2021 6:54 AM MECHANICAL CAR CHECKER MKTO Specimen Anatomical Collection Method Collection Time Receive d Time (Source) Location / / Volume Laterality Blood (Blood, 03/24/2021 6:15 AM 03/24/20 6:21 Venous) MECHANICAL CAR CHECKER AM MECHANICAL CAR CHECKER Darian Thomas M.D., J.D. LAB BLOOD ADD-ON Performing Organization Address City/State/ZIP Code Phon e Number [facility]- [address] [place] [phone] [place] [address] [place] [address] System in [address] (ABNORMAL) CBC without Differential (03/24/2021 6:15 AM MECHANICAL CAR CHECKER) [facility] gist Method Time Signature Hemoglobin 8.7 (L) 11.6 - 03/24/2021 MKTO 15.0 g/dL 6:33 AM MECHANICAL CAR CHECKER Hematocrit 26.3 (L) 35.5 - 03/24/2021 MKTO 44.9 % 6:33 AM MECHANICAL CAR CHECKER Erythrocytes 2.80 (L) 3.92 - 03/24/2021 MKTO 5.13 6:33 AM MECHANICAL CAR CHECKER x10(12)/L MCV 93.9 78.2 - 03/24/2021 MKTO 97.9 fL 6:33 AM MECHANICAL CAR CHECKER RBC Distrib Width 21.7 (H) 12.2 - 03/24/2021 MKTO 16.1 % 6:33 AM MECHANICAL CAR CHECKER Platelet Count 100 (L) 157 - 371 03/24/2021 MKTO x10(9)/L 6:33 AM MECHANICAL CAR CHECKER Leukocytes 10.0 (H) 3.4 - 9.6 03/24/2021 MKTO x10(9)/L 6:33 AM MECHANICAL CAR CHECKER Specimen Anatomical Collection Method Collection Time Receive d Time (Source) Location / / Volume Laterality Blood (Blood, 03/24/2021 6:15 AM 03/24/20 6:21 Venous) MECHANICAL CAR CHECKER AM MECHANICAL CAR CHECKER Darian Thomas M.D., J.D. LAB BLOOD ADD-ON Performing Organization Address City/State/ZIP Code Phon e Number [facility]- [address] [place] [address] [facility] [place] [address] System in [place] [address] [facility] Zinc (03/24/2021 6:15 AM MECHANICAL CAR CHECKER) athologist Signature Zinc, S 0.66 0.66 - 1.10 03/25/2021 SDSC mcg/mL 10:45 AM MECHANICAL CAR CHECKER Comment: ----ADDITIONAL INFORMATION---- This test was developed and its performa nce characteristics determined by [facility] in a manner consistent with CLIA requirements. This test has not been cleared or approved by the [place] and Drug Administration. Specimen Anatomical Collection Method Collection Time Receive d Time (Source) Location / / Volume Laterality Blood (Blood, 03/24/2021 6:15 AM 03/25/20 8:18 Venous) MECHANICAL CAR CHECKER AM MECHANICAL CAR CHECKER Darian Thomas M.D., J.D. LAB BLOOD NON ADD-ON Performing Organization Address City/State/ZIP Code Phon e Number [facility] [address] [place] [address] [place] [address] Laboratory Medicine and Pathology [address] [place] (ABNORMAL) Vitamin A and Vitamin E (03/24/2021 6:15 AM MECHANICAL CAR CHECKER) athologist Signature Vitamin A <5.0 (L) 32.5 - 78.0 03/26/2021 SDSC mcg/dL 10:49 AM MECHANICAL CAR CHECKER Comment: In this sample, the retinol (vitamin A) level indicates a severe deficiency. ----ADDITIONAL INFORMATION---- This test was developed and its performa nce characteristics determined by [facility] in a manner consistent with CLIA requirements. This test has not been cleared or approved by the [place] and Drug Administration. A-Tocopherol, Vitamin E 5.4 (L) 5.5 - 17.0 mg/L 03/27/2021 4:54 AM MECHANICAL CAR CHECKER [facility] Specimen Anatomical Collection Method Collection Time Receive d Time (Source) Location / / Volume Laterality Blood (Blood, 03/24/2021 6:15 AM 03/25/20 3:48 Venous) MECHANICAL CAR CHECKER PM MECHANICAL CAR CHECKER Darian Thomas M.D., J.D. LAB BLOOD NON ADD-ON Performing Organization Address City/[facility]/ZIP Code Phon e Number [facility] [address] [place], [place] [address] [place], [place] [address]. [place] [address] Laboratory Medicine and Pathology [address] [place] Transfuse Red Blood Cells : (03/23/2021 5:52 PM MECHANICAL CAR CHECKER) Darian Thomas M.D., J.D. BLOOD TRANSFUSION ORDERAB LES Transfuse Red Blood Cells : , 1 Units (03/23/2021 5:52 PM MECHANICAL CAR CHECKER) Darian Thomas M.D., J.D. BLOOD TRANSFUSION ORDERAB LES Testing Location (03/23/2021 1:12 PM MECHANICAL CAR CHECKER) P athologist Signature Testing [facility] DEFAULT 03/23/2021 MKTO Location 1:22 PM MECHANICAL CAR CHECKER Specimen Anatomical Collection Method Collection Time Receive d Time (Source) Location / / Volume Laterality Blood 03/23/2021 1:12 PM 1:21 MECHANICAL CAR CHECKER PM MECHANICAL CAR CHECKER Darian Thomas M.D., J.D. LAB BLOOD BANK TEST ORDER HARVEY Performing Organization Address City/[facility] Phon e Number [address] [address] [place] [address] System [place] [address] Type and Screen (with reflex Antibody ID) (03/23/2021 1:12 PM MECHANICAL CAR CHECKER) Patholo gist Method Time Signature ABO Group B 03/23/2021 MKTO 2:01 PM MECHANICAL CAR CHECKER Rh Type POS 03/23/2021 MKTO 2:01 PM MECHANICAL CAR CHECKER Antibody Screen NEG 03/23/2021 MKTO 2:01 PM MECHANICAL CAR CHECKER Type & Screen 03/26/2021 03/23/2021 MKTO Expiration 23:59 2:01 PM MECHANICAL CAR CHECKER ELXM Eligible Y 03/23/2021 MKTO 2:01 PM MECHANICAL CAR CHECKER Specimen Anatomical Collection Method Collection Time Receive d Time (Source) Location / / Volume Laterality Blood (Blood, 03/23/2021 1:12 PM 03/23/20 1:21 Venous) MECHANICAL CAR CHECKER PM MECHANICAL CAR CHECKER Darian Thomas M.D., J.D. LAB BLOOD BANK TEST ORDER HARVEY Performing Organization Address City/[facility]/ZIP [facility] Phon e Number [address] [address] [place] [address] System in [address] (ABNORMAL) Phosphorus Inorganic (03/23/2021 6:43 AM MECHANICAL CAR CHECKER) P athologist Signature Phosphorus 2.4 (L) 2.5 - 4.5 03/23/2021 MKTO (Inorganic), P mg/dL 7:40 AM MECHANICAL CAR CHECKER Specimen Anatomical Collection Method Collection Time Receive d Time (Source) Location / / Volume Laterality Blood (Blood, 03/23/2021 6:43 AM 03/23/20 6:58 Venous) MECHANICAL CAR CHECKER AM MECHANICAL CAR CHECKER Darian Thomas M.D., J.D. LAB BLOOD ADD-ON Performing Organization Address City/[facility] Phon e Number [address] [address] [facility] [place] [place] [address] System in [address] Magnesium (03/23/2021 6:43 AM MECHANICAL CAR CHECKER) P athologist Signature Magnesium, P 1.9 1.7 - 2.3 03/23/2021 MKTO mg/dL 7:40 AM MECHANICAL CAR CHECKER Specimen Anatomical Collection Method Collection Time Receive d Time (Source) Location / / Volume Laterality Blood (Blood, 03/23/2021 6:43 AM 03/23/20 6:58 Venous) MECHANICAL CAR CHECKER AM MECHANICAL CAR CHECKER Darian Thomas M.D., J.D. LAB BLOOD ADD-ON Performing Organization Address City/[facility]/ZIP Code Phon e Number [address] [address] [facility] [place] [address] System in [address] (ABNORMAL) Prothrombin Time (PT) (03/23/2021 6:43 AM MECHANICAL CAR CHECKER) Patholo gist Method Time Signature Prothrombin 31.8 (H) 9.4 - 12.5 03/23/2021 MKTO Time, P sec 7:55 AM MECHANICAL CAR CHECKER INR 2.8 0.9 - 1.1 03/23/2021 MKTO 7:55 AM MECHANICAL CAR CHECKER Comment: ----ADDITIONAL INFORMATION---- Standard intensity warfarin therapeutic range: 2.0 to 3.0 ?? High intensity warfarin therapeutic rang e: 2.5 to 3.5 Specimen Anatomical Collection Method Collection Time Receive d Time (Source) Location / / Volume Laterality Blood (Blood, 03/23/2021 6:43 AM 03/23/20 6:58 Venous) MECHANICAL CAR CHECKER AM MECHANICAL CAR CHECKER Darian Thomas M.D., J.D. LAB BLOOD ADD-ON Performing Organization Address City/State/ZIP Code Phon e Number [facility]- [address] [place] [phone] [place] [address] [place] [address] System in [place] [address] [place] [address] (ABNORMAL) Comprehensive Metabolic Panel (03/23/2021 6:43 AM MECHANICAL CAR CHECKER) Analysis Performed At Patho logist Time Signature Potassium, P 3.4 (L) 3.6 - 5.2 03/23/2021 MKTO mmol/L 7:40 AM MECHANICAL CAR CHECKER Sodium, P 139 135 - 145 03/23/2021 MKTO mmol/L 7:40 AM MECHANICAL CAR CHECKER Chloride, P 106 98 - 107 03/23/2021 MKTO mmol/L 7:40 AM MECHANICAL CAR CHECKER Bicarbonate, P 19 (L) 22 - 29 03/23/2021 MKTO mmol/L 7:40 AM MECHANICAL CAR CHECKER Anion Gap, P 14 7 - 15 03/23/2021 MKTO 7:40 AM MECHANICAL CAR CHECKER BUN (Blood Urea 6 6 - 21 03/23/2021 MKTO Nitrogen), P mg/dL 7:40 AM MECHANICAL CAR CHECKER Creatinine 0.37 (L) 0.59 - 03/23/2021 MKTO 1.04 mg/dL 7:40 AM MECHANICAL CAR CHECKER eGFR-Black/Afri >90 >=60 03/23/2021 MKTO can [place] mL/min/BSA 7:40 AM MECHANICAL CAR CHECKER Comment: ----ADDITIONAL INFORMATION---- Estimated GFR calculated using the 2009 CKD_EPI creatinine equation. eGFR Non-Black/ >90 >=60 mL/min/BSA 03/23/2021 7:40 AM MECHANICAL CAR CHECKER MKTO Comment: ----ADDITIONAL INFORMATION---- Estimated GFR calculated using the 2009 CKD_EPI creatinine equation. Calcium, Total, P 10.3 (H) 8.6 - 10.0 mg/dL 03/23/2021 7:40 AM MECHANICAL CAR CHECKER MKTO Glucose, P 152 (H) 70 - 140 mg/dL 03/23/2021 7:40 AM MECHANICAL CAR CHECKER M KTO Protein, Total, P 6.3 6.3 - 7.9 g/dL 03/23/2021 7:40 A M MECHANICAL CAR CHECKER MKTO Albumin, P 5.3 (H) 3.5 - 5.0 g/dL 03/23/2021 7:40 AM MECHANICAL CAR CHECKER M KTO Aspartate Aminotransferase 51 (H) 8 - 43 U/L 03/23/2021 7 :40 AM MECHANICAL CAR CHECKER MKTO (AST), P Alkaline Phosphatase, P 73 35 - 104 U/L 03/23/2021 7: 40 AM MECHANICAL CAR CHECKER MKTO Alanine Aminotransferase 21 7 - 45 U/L 03/23/2021 7:4 0 AM MECHANICAL CAR CHECKER MKTO (ALT), P Bilirubin, Total, P 6.1 (H) <=1.2 mg/dL 03/23/2021 7:40 AM MECHANICAL CAR CHECKER MKTO Specimen Anatomical Collection Method Collection Time Receive d Time (Source) Location / / Volume Laterality Blood (Blood, 03/23/2021 6:43 AM 03/23/20 6:58 Venous) MECHANICAL CAR CHECKER AM MECHANICAL CAR CHECKER Darian Thomas M.D., J.D. LAB BLOOD ADD-ON Performing Organization Address City/State/ZIP Code Phon e Number [facility]- [address] [place] [phone] [place] [address] System in [address] (ABNORMAL) CBC without Differential (03/23/2021 6:43 AM MECHANICAL CAR CHECKER) [facility] gist Method Time Signature Hemoglobin 6.8 (L) 11.6 - 03/23/2021 MKTO 15.0 g/dL 7:45 AM MECHANICAL CAR CHECKER Hematocrit 21.0 (L) 35.5 - 03/23/2021 MKTO 44.9 % 7:45 AM MECHANICAL CAR CHECKER Erythrocytes 2.28 (L) 3.92 - 03/23/2021 MKTO 5.13 7:45 AM MECHANICAL CAR CHECKER x10(12)/L MCV 92.1 78.2 - 03/23/2021 MKTO 97.9 fL 7:45 AM MECHANICAL CAR CHECKER RBC Distrib Width 22.2 (H) 12.2 - 03/23/2021 MKTO 16.1 % 7:45 AM MECHANICAL CAR CHECKER Platelet Count 98 (L) 157 - 371 03/23/2021 MKTO x10(9)/L 7:45 AM MECHANICAL CAR CHECKER Leukocytes 9.2 3.4 - 9.6 03/23/2021 MKTO x10(9)/L 7:45 AM MECHANICAL CAR CHECKER Specimen Anatomical Collection Method Collection Time Receive d Time (Source) Location / / Volume Laterality Blood (Blood, 03/23/2021 6:43 AM 03/23/20 6:58 Venous) MECHANICAL CAR CHECKER AM MECHANICAL CAR CHECKER Darian Thomas M.D., J.D. LAB BLOOD ADD-ON Performing Organization Address City/[facility] Phon e Number [facility]- [address] [place] [phone] [place] [address] System in [address] (ABNORMAL) Lactate, B (03/22/2021 8:38 AM MECHANICAL CAR CHECKER) P athologist Signature Lactate, B 2.3 (H) 0.5 - 2.2 03/22/2021 MKTO mmol/L 8:58 AM MECHANICAL CAR CHECKER Specimen Anatomical Collection Method Collection Time Receive d Time (Source) Location / / Volume Laterality Blood 03/22/2021 8:38 AM 8:50 MECHANICAL CAR CHECKER AM MECHANICAL CAR CHECKER Darian Thomas M.D., J.D. LAB BLOOD NON ADD-ON Performing Organization Address [facility] Phon e Number [facility]- [address] [place] [phone] [place] [address] System in [address] (ABNORMAL) Ammonia (03/22/2021 8:38 AM MECHANICAL CAR CHECKER) P athologist Signature Ammonia, P 60 (H) <=51 03/22/2021 MKTO mcmol/L 9:11 AM MECHANICAL CAR CHECKER Specimen Anatomical Collection Method Collection Time Receive d Time (Source) Location / / Volume Laterality Blood (Blood, 03/22/2021 8:38 AM 03/22/20 8:50 Venous) MECHANICAL CAR CHECKER AM MECHANICAL CAR CHECKER Darian Thomas M.D., J.D. LAB BLOOD NON ADD-ON Performing Organization Address [facility] Phon e Number [facility]- [address] [place] [phone] [place] [address] System in [address] (ABNORMAL) Prothrombin Time (PT) (03/22/2021 8:38 AM MECHANICAL CAR CHECKER) Patholo gist Method Time Signature Prothrombin 30.5 (H) 9.4 - 12.5 03/22/2021 MKTO Time, P sec 9:24 AM MECHANICAL CAR CHECKER INR 2.7 0.9 - 1.1 03/22/2021 MKTO 9:24 AM MECHANICAL CAR CHECKER Comment: ----ADDITIONAL INFORMATION---- Standard intensity warfarin therapeutic range: 2.0 to 3.0 ?? High intensity warfarin therapeutic rang e: 2.5 to 3.5 Specimen Anatomical Collection Method Collection Time Receive d Time (Source) Location / / Volume Laterality Blood (Blood, 03/22/2021 8:38 AM 03/22/20 8:50 Venous) MECHANICAL CAR CHECKER AM MECHANICAL CAR CHECKER Darian Thomas M.D., J.D. LAB BLOOD ADD-ON Performing Organization Address City/[facility] Code Phon e Number [facility]- [address] [place] [phone] [place] [address] System in [address] (ABNORMAL) Comprehensive Metabolic Panel (03/22/2021 8:38 AM MECHANICAL CAR CHECKER) Analysis Performed At Patho logist Time Signature Potassium, P 3.4 (L) 3.6 - 5.2 03/22/2021 MKTO mmol/L 9:20 AM MECHANICAL CAR CHECKER Sodium, P 139 135 - 145 03/22/2021 MKTO mmol/L 9:20 AM MECHANICAL CAR CHECKER Chloride, P 105 98 - 107 03/22/2021 MKTO mmol/L 9:20 AM MECHANICAL CAR CHECKER Bicarbonate, P 19 (L) 22 - 29 03/22/2021 MKTO mmol/L 9:20 AM MECHANICAL CAR CHECKER Anion Gap, P 15 7 - 15 03/22/2021 MKTO 9:20 AM MECHANICAL CAR CHECKER BUN (Blood Urea 6 6 - 21 03/22/2021 MKTO Nitrogen), P mg/dL 9:20 AM MECHANICAL CAR CHECKER Creatinine 0.40 (L) 0.59 - 03/22/2021 MKTO 1.04 mg/dL 9:20 AM MECHANICAL CAR CHECKER eGFR-Black/Afri >90 >=60 03/22/2021 MKTO can [place] mL/min/BSA 9:20 AM MECHANICAL CAR CHECKER Comment: ----ADDITIONAL INFORMATION---- Estimated GFR calculated using the 2009 CKD_EPI creatinine equation. eGFR Non-Black/ >90 >=60 mL/min/BSA 03/22/2021 9:20 AM MECHANICAL CAR CHECKER MKTO Comment: ----ADDITIONAL INFORMATION---- Estimated GFR calculated using the 2009 CKD_EPI creatinine equation. Calcium, Total, P 10.1 (H) 8.6 - 10.0 mg/dL 03/22/2021 9:20 AM MECHANICAL CAR CHECKER MKTO Glucose, P 115 70 - 140 mg/dL 03/22/2021 9:20 AM MECHANICAL CAR CHECKER M KTO Protein, Total, P 6.2 (L) 6.3 - 7.9 g/dL 03/22/2021 9:20 A M MECHANICAL CAR CHECKER MKTO Albumin, P 5.2 (H) 3.5 - 5.0 g/dL 03/22/2021 9:20 AM MECHANICAL CAR CHECKER M KTO Aspartate Aminotransferase 52 (H) 8 - 43 U/L 03/22/2021 9 :20 AM MECHANICAL CAR CHECKER MKTO (AST), P Alkaline Phosphatase, P 59 35 - 104 U/L 03/22/2021 9: 20 AM MECHANICAL CAR CHECKER MKTO Alanine Aminotransferase 20 7 - 45 U/L 03/22/2021 9:2 0 AM MECHANICAL CAR CHECKER MKTO (ALT), P Bilirubin, Total, P 5.9 (H) <=1.2 mg/dL 03/22/2021 9:20 AM MECHANICAL CAR CHECKER MKTO Specimen Anatomical Collection Method Collection Time Receive d Time (Source) Location / / Volume Laterality Blood (Blood, 03/22/2021 8:38 AM 03/22/20 8:50 Venous) MECHANICAL CAR CHECKER AM MECHANICAL CAR CHECKER Darian Thomas M.D., J.D. LAB BLOOD ADD-ON Performing Organization Address [facility] Phon e Number [address] [address] [place] [address] System in [address] (ABNORMAL) CBC without Differential (03/22/2021 8:38 AM MECHANICAL CAR CHECKER) Patholo gist Method Time Signature Hemoglobin 7.2 (L) 11.6 - 03/22/2021 MKTO 15.0 g/dL 9:11 AM MECHANICAL CAR CHECKER Hematocrit 22.6 (L) 35.5 - 03/22/2021 MKTO 44.9 % 9:11 AM MECHANICAL CAR CHECKER Erythrocytes 2.39 (L) 3.92 - 03/22/2021 MKTO 5.13 9:11 AM MECHANICAL CAR CHECKER x10(12)/L MCV 94.6 78.2 - 03/22/2021 MKTO 97.9 fL 9:11 AM MECHANICAL CAR CHECKER RBC Distrib Width 21.6 (H) 12.2 - 03/22/2021 MKTO 16.1 % 9:11 AM MECHANICAL CAR CHECKER Platelet Count 98 (L) 157 - 371 03/22/2021 MKTO x10(9)/L 9:11 AM MECHANICAL CAR CHECKER Leukocytes 9.0 3.4 - 9.6 03/22/2021 MKTO x10(9)/L 9:11 AM MECHANICAL CAR CHECKER Specimen Anatomical Collection Method Collection Time Receive d Time (Source) Location / / Volume Laterality Blood (Blood, 03/22/2021 8:38 AM 03/22/20 8:50 Venous) MECHANICAL CAR CHECKER AM MECHANICAL CAR CHECKER Darian Thomas M.D., J.D. LAB BLOOD ADD-ON Performing Organization Address City/[facility]/ZIP Code Phon e Number [facility]- [address] [place] [phone] [place] [address] System in [address] Phosphorus Inorganic (03/22/2021 8:33 AM MECHANICAL CAR CHECKER) athologist Signature Phosphorus 2.7 2.5 - 4.5 03/22/2021 MKTO (Inorganic), P mg/dL 2:17 PM MECHANICAL CAR CHECKER Specimen Anatomical Collection Method Collection Time Receive d Time (Source) Location / / Volume Laterality Blood (Blood, 03/22/2021 8:33 AM 03/22/20 2:07 Venous) MECHANICAL CAR CHECKER PM MECHANICAL CAR CHECKER Darian Thomas M.D., J.D. LAB BLOOD ADD-ON Performing Organization Address City/[facility] Phon e Number [facility]- [address] [place] [address] LAB [place] [phone] System in [address] (ABNORMAL) Magnesium (03/22/2021 8:33 AM MECHANICAL CAR CHECKER) P athologist Signature Magnesium, P 1.6 (L) 1.7 - 2.3 03/22/2021 MKTO mg/dL 2:17 PM MECHANICAL CAR CHECKER Specimen Anatomical Collection Method Collection Time Receive d Time (Source) Location / / Volume Laterality Blood (Blood, 03/22/2021 8:33 AM 03/22/20 2:07 Venous) MECHANICAL CAR CHECKER PM MECHANICAL CAR CHECKER Darian Thomas M.D., J.D. LAB BLOOD ADD-ON Performing Organization Address City/[facility] Phon e Number [facility]- [address] [place] [address] EEG ROUTINE (03/21/2021 4:43 PM MECHANICAL CAR CHECKER) Specimen (Source) Anatomical Location Collection Method / Collectio n Time Received Time / Laterality Volume Narrative MMODAL - 03/21/2021 5:13 PM MECHANICAL CAR CHECKER Clinical Interpretation: The short-term video EEG shows [...] Pelvis without IV Contrast (03/21/2021 12:42 PM MECHANICAL CAR CHECKER) Anatomical Region Laterality Modality Abdomen, Pelvis, Abdominal RST LOS, Abdominal ARZ LOS, N/A Computed Tomography Abdominal FLA LOS Specimen (Source) Anatomical Collection Method Collection Time Re ceived Time Location / / Volume Laterality 03/21/2021 1:09 PM MECHANICAL CAR CHECKER Impressions 03/21/2021 1:19 PM MECHANICAL CAR CHECKER 1. Slight interval DECREASE in abdominal ascites, however attenuation values have slightly increased, and are indeter minate, raising the possibility that there is blood within this free peritone al fluid. Consider paracentesis 2. No CT evidence for retroperitoneal he morrhage. Narrative 03/21/2021 1:19 PM MECHANICAL CAR CHECKER EXAM: CT ABDOMEN PELVIS WITHOUT IV CONTRAST [...] Head without IV Contrast (03/21/2021 12:42 PM MECHANICAL CAR CHECKER) Anatomical Region Laterality Modality Head, Neuroradiology RST LOS, Neuroradiology [facility]Z [facility], N/A Computed Tomography [facility]adiology [facility] Specimen (Source) Anatomical Collection Method Collection Time Re ceived Time Location / / Volume Laterality 03/21/2021 1:08 PM MECHANICAL CAR CHECKER Impressions 03/21/2021 1:09 PM MECHANICAL CAR CHECKER No acute intracranial pathology Narrative 03/21/2021 1:09 PM MECHANICAL CAR CHECKER EXAM: CT HEAD WITHOUT IV CONTRAST COMPARISON: [...] PROCEDURES ECG 12 Lead (03/21/2021 10:06 AM MECHANICAL CAR CHECKER) P athologist Signature Ventricular Rate 92 BPM MUSE ECG/Min [place] Interval 148 ms MUSE QRSD Interval 82 ms MUSE QT Interval 342 ms MUSE QTC Interval 422 ms MUSE P [place] 0 degrees MUSE R [place] 58 degrees MUSE T Wave [place] 12 degrees MUSE Specimen Anatomical Collection Method Collection Time Receive d Time (Source) Location / / Volume Laterality 03/21/2021 10:06 03/21/2021 AM MECHANICAL CAR CHECKER 10:09 AM MECHANICAL CAR CHECKER Impressions MUSE - 03/21/2021 10:10 AM MECHANICAL CAR CHECKER Normal sinus rhythm Nonspecific T wave abnormality [...] (ABNORMAL) Comprehensive Metabolic Panel (03/21/2021 5:44 AM MECHANICAL CAR CHECKER) Analysis Performed At Patho logist Time Signature Potassium, P 3.8 3.6 - 5.2 03/21/2021 MKTO mmol/L 6:33 AM MECHANICAL CAR CHECKER Sodium, P 141 135 - 145 03/21/2021 MKTO mmol/L 6:33 AM MECHANICAL CAR CHECKER Chloride, P 108 (H) 98 - 107 03/21/2021 MKTO mmol/L 6:33 AM MECHANICAL CAR CHECKER Bicarbonate, P 19 (L) 22 - 29 03/21/2021 MKTO mmol/L 6:33 AM MECHANICAL CAR CHECKER Anion Gap, P 14 7 - 15 03/21/2021 MKTO 6:33 AM MECHANICAL CAR CHECKER BUN (Blood Urea 4 (L) 6 - 21 03/21/2021 MKTO Nitrogen), P mg/dL 6:33 AM MECHANICAL CAR CHECKER Creatinine 0.38 (L) 0.59 - 03/21/2021 MKTO 1.04 mg/dL 6:33 AM MECHANICAL CAR CHECKER eGFR-Black/Afri >90 >=60 03/21/2021 MKTO can [place] mL/min/BSA 6:33 AM MECHANICAL CAR CHECKER Comment: ----ADDITIONAL INFORMATION---- Estimated GFR calculated using the 2009 CKD_EPI creatinine equation. eGFR Non-Black/ >90 >=60 mL/min/BSA 03/21/2021 6:33 AM MECHANICAL CAR CHECKER MKTO Comment: ----ADDITIONAL INFORMATION---- Estimated GFR calculated using the 2009 CKD_EPI creatinine equation. Calcium, Total, P 10.3 (H) 8.6 - 10.0 mg/dL 03/21/2021 6:33 AM MKTO MECHANICAL CAR CHECKER Glucose, P 104 70 - 140 mg/dL 03/21/2021 6:33 AM MKTO MECHANICAL CAR CHECKER Protein, Total, P 6.2 (L) 6.3 - 7.9 g/dL 03/21/2021 6:33 A M MKTO MECHANICAL CAR CHECKER Albumin, P 5.2 (H) 3.5 - 5.0 g/dL 03/21/2021 6:33 AM MKTO MECHANICAL CAR CHECKER Aspartate Aminotransferase SEE COMMENT 8 - 43 U/L 03/21/2021 6:43 AM MKTO (AST), P MECHANICAL CAR CHECKER Comment: Specimen was hemolyzed. Alkaline Phosphatase, P 52 35 - 104 U/L 03/21/2021 6: 33 AM MECHANICAL CAR CHECKER MKTO Alanine Aminotransferase (ALT), 19 7 - 45 U/L 021 6:33 AM MECHANICAL CAR CHECKER MKTO P Bilirubin, Total, P 5.8 (H) <=1.2 mg/dL 03/21/2021 6:33 AM MECHANICAL CAR CHECKER MKTO Specimen Anatomical Collection Method Collection Time Receive d Time (Source) Location / / Volume Laterality Blood (Blood, 03/21/2021 5:44 AM 03/21/20 5:50 Venous) MECHANICAL CAR CHECKER AM MECHANICAL CAR CHECKER Darian Thomas M.D., J.D. LAB BLOOD ADD-ON Performing Organization Address City/State/ZIP Code Phon e Number [facility]- [address] [place] [phone] [place] [address] Lactate, B (03/21/2021 5:43 AM MECHANICAL CAR CHECKER) P athologist Signature Lactate, B 1.7 0.5 - 2.2 03/21/2021 MKTO mmol/L 5:56 AM MECHANICAL CAR CHECKER Specimen Anatomical Collection Method Collection Time Receive d Time (Source) Location / / Volume Laterality Blood 03/21/2021 5:43 AM 5:50 MECHANICAL CAR CHECKER AM MECHANICAL CAR CHECKER Alka Cordero P.A.-C. MSumaSSuma LAB BLOOD NON ADD-ON Performing Organization Address [facility] Phon e Number [facility]- [address] [place] [phone] [place] [address] System in [address] (ABNORMAL) CBC without Differential (03/21/2021 5:43 AM MECHANICAL CAR CHECKER) Patholo gist Method Time Signature Hemoglobin 7.0 (L) 11.6 - 03/21/2021 MKTO 15.0 g/dL 6:09 AM MECHANICAL CAR CHECKER Hematocrit 21.2 (L) 35.5 - 03/21/2021 MKTO 44.9 % 6:09 AM MECHANICAL CAR CHECKER Erythrocytes 2.35 (L) 3.92 - 03/21/2021 MKTO 5.13 6:09 AM MECHANICAL CAR CHECKER x10(12)/L MCV 90.2 78.2 - 03/21/2021 MKTO 97.9 fL 6:09 AM MECHANICAL CAR CHECKER RBC Distrib Width 21.1 (H) 12.2 - 03/21/2021 MKTO 16.1 % 6:09 AM MECHANICAL CAR CHECKER Platelet Count 91 (L) 157 - 371 03/21/2021 MKTO x10(9)/L 6:09 AM MECHANICAL CAR CHECKER Leukocytes 7.8 3.4 - 9.6 03/21/2021 MKTO x10(9)/L 6:09 AM MECHANICAL CAR CHECKER Specimen Anatomical Collection Method Collection Time Receive d Time (Source) Location / / Volume Laterality Blood (Blood, 03/21/2021 5:43 AM 03/21/20 5:50 Venous) MECHANICAL CAR CHECKER AM MECHANICAL CAR CHECKER Darian Thomas M.D., J.D. LAB BLOOD ADD-ON Performing Organization Address City/[facility]/ZIP Code Phon e Number [facility]- [address] [place] [address] [place] [address] System in [place] [address] [facility] (ABNORMAL) Prothrombin Time (PT) (03/21/2021 5:43 AM MECHANICAL CAR CHECKER) Patholo gist Method Time Signature Prothrombin 29.0 (H) 9.4 - 12.5 03/21/2021 MKTO Time, P sec 6:02 AM MECHANICAL CAR CHECKER INR 2.6 0.9 - 1.1 03/21/2021 MKTO 6:02 AM MECHANICAL CAR CHECKER Comment: ----ADDITIONAL INFORMATION---- Standard intensity warfarin therapeutic range: 2.0 to 3.0 ?? High intensity warfarin therapeutic rang e: 2.5 to 3.5 Specimen Anatomical Collection Method Collection Time Receive d Time (Source) Location / / Volume Laterality Blood (Blood, 03/21/2021 5:43 AM 03/21/20 5:50 Venous) MECHANICAL CAR CHECKER AM MECHANICAL CAR CHECKER Keerthi Guzman M.D. LAB BLOOD ADD-ON Performing Organization Address City/[facility]/ZIP Code Phon e Number [facility]- [facility] [place] [address] [place] [address] System in [place] [address] [place] [address] (ABNORMAL) Lactate, B (03/20/2021 10:32 PM MECHANICAL CAR CHECKER) P athologist Signature Lactate, B 4.1 (H) 0.5 - 2.2 03/20/2021 MKTO mmol/L 10:44 PM MECHANICAL CAR CHECKER Specimen Anatomical Collection Method Collection Time Receive d Time (Source) Location / / Volume Laterality Blood 03/20/2021 10:32 03/20/2021 PM MECHANICAL CAR CHECKER 10:39 PM MECHANICAL CAR CHECKER Alka Cordero P.A.-C., M.S. LAB BLOOD NON ADD-ON Performing Organization Address City/State/ZIP Code Phon e Number [facility]- [address] [place] [address] [place] [address] System in [place] [address] [facility] (ABNORMAL) Comprehensive Metabolic Panel (03/20/2021 10:32 PM MECHANICAL CAR CHECKER) Analysis Performed At Patho logist Time Signature Potassium, P 3.6 3.6 - 5.2 03/20/2021 MKTO mmol/L 11:16 PM MECHANICAL CAR CHECKER Sodium, P 141 135 - 145 03/20/2021 MKTO mmol/L 11:16 PM MECHANICAL CAR CHECKER Chloride, P 107 98 - 107 03/20/2021 MKTO mmol/L 11:16 PM MECHANICAL CAR CHECKER Bicarbonate, P 17 (L) 22 - 29 03/20/2021 MKTO mmol/L 11:16 PM MECHANICAL CAR CHECKER Anion Gap, P 17 (H) 7 - 15 03/20/2021 MKTO 11:16 PM MECHANICAL CAR CHECKER BUN (Blood Urea 4 (L) 6 - 21 03/20/2021 MKTO Nitrogen), P mg/dL 11:16 PM MECHANICAL CAR CHECKER Creatinine 0.43 (L) 0.59 - 03/20/2021 MKTO 1.04 mg/dL 11:16 PM MECHANICAL CAR CHECKER eGFR-Black/Afri >90 >=60 03/20/2021 MKTO can [place] mL/min/BSA 11:16 PM MECHANICAL CAR CHECKER Comment: ----ADDITIONAL INFORMATION---- Estimated GFR calculated using the 2009 CKD_EPI creatinine equation. eGFR Non-Black/ >90 >=60 mL/min/BSA 03/20/2021 11:16 PM MECHANICAL CAR CHECKER MKTO Comment: ----ADDITIONAL INFORMATION---- Estimated GFR calculated using the 2009 CKD_EPI creatinine equation. Calcium, Total, P 10.6 (H) 8.6 - 10.0 mg/dL 03/20/2021 11:1 6 PM MKTO MECHANICAL CAR CHECKER Glucose, P 117 70 - 140 mg/dL 03/20/2021 11:16 PM MKTO MECHANICAL CAR CHECKER Protein, Total, P 6.8 6.3 - 7.9 g/dL 03/20/2021 11:16 PM MKTO MECHANICAL CAR CHECKER Albumin, P 5.6 (H) 3.5 - 5.0 g/dL 03/20/2021 11:16 PM MKTO MECHANICAL CAR CHECKER Aspartate Aminotransferase 56 (H) 8 - 43 U/L 03/20/2021 1 1:16 PM MKTO (AST), P MECHANICAL CAR CHECKER Alkaline Phosphatase, P 59 35 - 104 U/L 03/20/2021 11 :16 PM MKTO MECHANICAL CAR CHECKER Alanine Aminotransferase 21 7 - 45 U/L 03/20/2021 11: 16 PM MKTO (ALT), P MECHANICAL CAR CHECKER Bilirubin, Total, P 6.0 (H) <=1.2 mg/dL 03/20/2021 11:16 P M MKTO MECHANICAL CAR CHECKER Specimen Anatomical Collection Method Collection Time Receive d Time (Source) Location / / Volume Laterality Blood (Blood, 03/20/2021 10:32 03/20/2021 Venous) PM MECHANICAL CAR CHECKER 10:39 PM MECHANICAL CAR CHECKER Alka Cordero P.A.-C., M.S. LAB BLOOD ADD-ON Performing Organization Address [facility] Phon e Number [address] [address] [place] [phone] System in [address] (ABNORMAL) Ammonia (03/20/2021 10:32 PM MECHANICAL CAR CHECKER) P athologist Signature Ammonia, P 63 (H) <=51 03/20/2021 MKTO mcmol/L 11:02 PM MECHANICAL CAR CHECKER Specimen Anatomical Collection Method Collection Time Receive d Time (Source) Location / / Volume Laterality Blood (Blood, 03/20/2021 10:32 03/20/2021 Venous) PM MECHANICAL CAR CHECKER 10:38 PM MECHANICAL CAR CHECKER Alka Cordero P.A.-C., M.S. LAB BLOOD NON ADD-ON Performing Organization Address [facility] Phon e Number [address] [address] [place] [address] System in [address] CK (Creatine Kinase) (03/20/2021 10:32 PM MECHANICAL CAR CHECKER) P athologist Signature Creatine 40 26 - 192 03/20/2021 MKTO Kinase, P U/L 11:16 PM MECHANICAL CAR CHECKER Specimen Anatomical Collection Method Collection Time Receive d Time (Source) Location / / Volume Laterality Blood (Blood, 03/20/2021 10:32 03/20/2021 Venous) PM MECHANICAL CAR CHECKER 10:39 PM MECHANICAL CAR CHECKER Alka Cordero P.A.-C., M.S. LAB BLOOD ADD-ON Performing Organization Address City/State/ZIP Code Phon e Number [facility]- [address] [place] [phone] [place] [address] System in [address] (ABNORMAL) CBC with Differential, Blood (03/20/2021 10:32 PM MECHANICAL CAR CHECKER) [facility] Method Time Signature Hemoglobin 7.5 (L) 11.6 - 03/20/2021 MKTO 15.0 g/dL 10:43 PM MECHANICAL CAR CHECKER Hematocrit 22.5 (L) 35.5 - 03/20/2021 MKTO 44.9 % 10:43 PM MECHANICAL CAR CHECKER Erythrocytes 2.44 (L) 3.92 - 03/20/2021 MKTO 5.13 10:43 PM MECHANICAL CAR CHECKER x10(12)/L MCV 92.2 78.2 - 03/20/2021 MKTO 97.9 fL 10:43 PM MECHANICAL CAR CHECKER RBC Distrib Width 20.9 (H) 12.2 - 03/20/2021 MKTO 16.1 % 10:43 PM MECHANICAL CAR CHECKER Platelet Count 84 (L) 157 - 371 03/20/2021 MKTO x10(9)/L 10:43 PM MECHANICAL CAR CHECKER Leukocytes 8.4 3.4 - 9.6 03/20/2021 MKTO x10(9)/L 10:43 PM MECHANICAL CAR CHECKER Neutrophils 6.38 1.56 - 03/20/2021 MKTO 6.45 10:43 PM MECHANICAL CAR CHECKER x10(9)/L Lymphocytes 1.10 0.95 - 03/20/2021 MKTO 3.07 10:43 PM MECHANICAL CAR CHECKER x10(9)/L Monocytes 0.75 0.26 - 03/20/2021 MKTO 0.81 10:43 PM MECHANICAL CAR CHECKER x10(9)/L Eosinophils 0.10 0.03 - 03/20/2021 MKTO 0.48 10:43 PM MECHANICAL CAR CHECKER x10(9)/L Basophils <0.03 0.01 - 03/20/2021 MKTO 0.08 10:43 PM MECHANICAL CAR CHECKER x10(9)/L Specimen Anatomical Collection Method Collection Time Receive d Time (Source) Location / / Volume Laterality Blood (Blood, 03/20/2021 10:32 03/20/2021 Venous) PM MECHANICAL CAR CHECKER 10:39 PM MECHANICAL CAR CHECKER Alka Cordero P.A.-C., M.S. LAB BLOOD ADD-ON Performing Organization Address City/[facility]/ZIP [facility] Phon e Number [address] [address] [place] [address] System in [address] Glucose, POCT (03/20/2021 9:03 PM MECHANICAL CAR CHECKER) athologist Signature Glucose, POCT, 131 70 - 140 03/20/2021 MKTO B mg/dL 9:03 PM MECHANICAL CAR CHECKER Specimen Anatomical Collection Method Collection Time Receive d Time (Source) Location / / Volume Laterality Blood 03/20/2021 9:03 PM 1 9:11 MECHANICAL CAR CHECKER PM MECHANICAL CAR CHECKER Generic Rals LAB POCT ORDERABLES-MANUAL Performing Organization Address [facility] Phon e Number [facility]- [address] [place] [phone] [place] [address] System in [address] Phosphorus Inorganic (03/20/2021 7:40 AM MECHANICAL CAR CHECKER) athologist Signature Phosphorus 3.1 2.5 - 4.5 03/20/2021 MKTO (Inorganic), P mg/dL 8:31 AM MECHANICAL CAR CHECKER Specimen Anatomical Collection Method Collection Time Receive d Time (Source) Location / / Volume Laterality Blood 03/20/2021 7:40 AM 1 7:46 MECHANICAL CAR CHECKER AM MECHANICAL CAR CHECKER Keerthi Guzman M.D. LAB BLOOD ADD-ON Performing Organization Address City/[facility]/ZIP [facility] Phon e Number [address] [address] [place] [address] System in [address] (ABNORMAL) Blood Gas with Coox, Venous (03/20/2021 7:40 AM MECHANICAL CAR CHECKER) Patholo gist Method Time Signature Venous pO2 56 Not applicable 03/20/2021 MKTO mm Hg 7:59 AM MECHANICAL CAR CHECKER Venous pCO2 30 (L) 41 - 51 mm Hg 03/20/2021 MKTO 7:59 AM MECHANICAL CAR CHECKER Venous pH 7.48 (H) 7.32 - 7.43 pH 03/20/2021 MKTO 7:59 AM MECHANICAL CAR CHECKER Venous Base -1 Not applicable 03/20/2021 MKTO Excess mmol/L 7:59 AM MECHANICAL CAR CHECKER HCO3 22 Not applicable 03/20/2021 MKTO mmol/L 7:59 AM MECHANICAL CAR CHECKER Hemoglobin, B 7.8 (L) 11.6 - 15.0 03/20/2021 MKTO g/dL 7:59 AM MECHANICAL CAR CHECKER O2Hb 88.2 Not applicable 03/20/2021 MKTO % 7:59 AM MECHANICAL CAR CHECKER COHb 1.8 <3.0 % 03/20/2021 MKTO 7:59 AM MECHANICAL CAR CHECKER MetHb 0.6 <1.5 % 03/20/2021 MKTO 7:59 AM MECHANICAL CAR CHECKER CtO2 9.7 Not Applicable 03/20/2021 MKTO vol % 7:59 AM MECHANICAL CAR CHECKER Specimen Anatomical Collection Method Collection Time Receive d Time (Source) Location / / Volume Laterality Blood (Blood, 03/20/2021 7:40 AM 03/20/20 7:46 Venous) MECHANICAL CAR CHECKER AM MECHANICAL CAR CHECKER Darian Thomas M.D., Dhara LAB BLOOD NON ADD-ON Performing Organization Address City/[facility] Code Phon e Number [address] [address] [place] [address] System in [address] Magnesium (03/20/2021 7:40 AM MECHANICAL CAR CHECKER) P athologist Signature Magnesium, P 2.3 1.7 - 2.3 03/20/2021 MKTO mg/dL 8:31 AM MECHANICAL CAR CHECKER Specimen Anatomical Collection Method Collection Time Receive d Time (Source) Location / / Volume Laterality Blood 03/20/2021 7:40 AM 7:46 MECHANICAL CAR CHECKER AM MECHANICAL CAR CHECKER Keerthi Guzman M.D. LAB BLOOD ADD-ON Performing Organization Address City/[facility]/ZIP [facility] Phon e Number [facility]- [address] [place] [phone] [place] [address] System in [place] [address] [place] [address] Calcium, Ionized (03/20/2021 7:40 AM MECHANICAL CAR CHECKER) athologist Signature Calcium, 5.07 4.65 - 5.30 03/20/2021 MKTO Ionized, B mg/dL 7:59 AM MECHANICAL CAR CHECKER Specimen Anatomical Collection Method Collection Time Receive d Time (Source) Location / / Volume Laterality Blood 03/20/2021 7:40 AM 1 7:46 MECHANICAL CAR CHECKER AM MECHANICAL CAR CHECKER Keerthi Guzman M.D. LAB BLOOD NON ADD-ON Performing Organization Address City/State/ZIP Code Phon e Number [facility]- [address] [place] [phone] [facility] [place] [address] System in [place] [address] [facility] (ABNORMAL) pH (03/20/2021 7:40 AM MECHANICAL CAR CHECKER) athologist Signature pH 7.48 (H) 7.35 - 7.45 03/20/2021 MKTO pH 7:59 AM MECHANICAL CAR CHECKER Specimen Anatomical Collection Method Collection Time Receive d Time (Source) Location / / Volume Laterality Blood 03/20/2021 7:40 AM 1 7:46 MECHANICAL CAR CHECKER AM MECHANICAL CAR CHECKER Keerthi Guzman M.D. LAB HISTORICAL ORDERS Performing Organization Address City/[facility] Phon e Number [facility]- [address] [place] [phone] [facility] [place] [address] System in [place] [address] [place] [address] Lactate, B (03/20/2021 7:40 AM MECHANICAL CAR CHECKER) athologist Signature Lactate, B 1.0 0.5 - 2.2 03/20/2021 MKTO mmol/L 7:59 AM MECHANICAL CAR CHECKER Specimen Anatomical Collection Method Collection Time Receive d Time (Source) Location / / Volume Laterality Blood 03/20/2021 7:40 AM 1 7:46 MECHANICAL CAR CHECKER AM MECHANICAL CAR CHECKER Keerthi Guzman M.D. LAB BLOOD NON ADD-ON Performing Organization Address City/State/[facility] Phon e Number [facility]- [address] [place] [phone] [place] [address] System in [address] (ABNORMAL) CBC without Differential (03/20/2021 7:40 AM MECHANICAL CAR CHECKER) Patholo gist Method Time Signature Hemoglobin 7.6 (L) 11.6 - 03/20/2021 MKTO 15.0 g/dL 8:13 AM MECHANICAL CAR CHECKER Hematocrit 23.4 (L) 35.5 - 03/20/2021 MKTO 44.9 % 8:13 AM MECHANICAL CAR CHECKER Erythrocytes 2.54 (L) 3.92 - 03/20/2021 MKTO 5.13 8:13 AM MECHANICAL CAR CHECKER x10(12)/L MCV 92.1 78.2 - 03/20/2021 MKTO 97.9 fL 8:13 AM MECHANICAL CAR CHECKER RBC Distrib Width 20.5 (H) 12.2 - 03/20/2021 MKTO 16.1 % 8:13 AM MECHANICAL CAR CHECKER Platelet Count 94 (L) 157 - 371 03/20/2021 MKTO x10(9)/L 8:13 AM MECHANICAL CAR CHECKER Leukocytes 5.9 3.4 - 9.6 03/20/2021 MKTO x10(9)/L 8:13 AM MECHANICAL CAR CHECKER Specimen Anatomical Collection Method Collection Time Receive d Time (Source) Location / / Volume Laterality Blood (Blood, 03/20/2021 7:40 AM 03/20/20 21 7:46 Venous) MECHANICAL CAR CHECKER AM MECHANICAL CAR CHECKER Keerthi Guzman M.D. LAB BLOOD ADD-ON Performing Organization Address City/[facility] Phon e Number [facility]- [address] [place] [phone] [place] [address] System in [address] (ABNORMAL) Comprehensive Metabolic Panel (03/20/2021 7:40 AM MECHANICAL CAR CHECKER) Analysis Performed At Patho logist Time Signature Potassium, P 3.3 (L) 3.6 - 5.2 03/20/2021 MKTO mmol/L 8:31 AM MECHANICAL CAR CHECKER Sodium, P 142 135 - 145 03/20/2021 MKTO mmol/L 8:31 AM MECHANICAL CAR CHECKER Chloride, P 108 (H) 98 - 107 03/20/2021 MKTO mmol/L 8:31 AM MECHANICAL CAR CHECKER Bicarbonate, P 20 (L) 22 - 29 03/20/2021 MKTO mmol/L 8:31 AM MECHANICAL CAR CHECKER Anion Gap, P 14 7 - 15 03/20/2021 MKTO 8:31 AM MECHANICAL CAR CHECKER BUN (Blood Urea 4 (L) 6 - 21 03/20/2021 MKTO Nitrogen), P mg/dL 8:31 AM MECHANICAL CAR CHECKER Creatinine 0.35 (L) 0.59 - 03/20/2021 MKTO 1.04 mg/dL 8:31 AM MECHANICAL CAR CHECKER eGFR-Black/Afri >90 >=60 03/20/2021 MKTO can Ugandan mL/min/BSA 8:32 AM MECHANICAL CAR CHECKER Comment: ----ADDITIONAL INFORMATION---- Estimated GFR calculated using the 2009 CKD_EPI creatinine equation. eGFR Non-Black/ >90 >=60 mL/min/BSA 03/20/2021 8:32 AM MECHANICAL CAR CHECKER MKTO Comment: ----ADDITIONAL INFORMATION---- Estimated GFR calculated using the 2009 CKD_EPI creatinine equation. Calcium, Total, P 10.2 (H) 8.6 - 10.0 mg/dL 03/20/2021 8:31 AM MECHANICAL CAR CHECKER MKTO Glucose, P 107 70 - 140 mg/dL 03/20/2021 8:31 AM MECHANICAL CAR CHECKER M KTO Protein, Total, P 6.3 6.3 - 7.9 g/dL 03/20/2021 8:31 A M MECHANICAL CAR CHECKER MKTO Albumin, P 5.3 (H) 3.5 - 5.0 g/dL 03/20/2021 8:31 AM MECHANICAL CAR CHECKER M KTO Aspartate Aminotransferase 38 8 - 43 U/L 03/20/2021 8 :31 AM MECHANICAL CAR CHECKER MKTO (AST), P Alkaline Phosphatase, P 50 35 - 104 U/L 03/20/2021 8: 31 AM MECHANICAL CAR CHECKER MKTO Alanine Aminotransferase 11 7 - 45 U/L 03/20/2021 8:3 1 AM MECHANICAL CAR CHECKER MKTO (ALT), P Bilirubin, Total, P 6.0 (H) <=1.2 mg/dL 03/20/2021 8:31 AM MECHANICAL CAR CHECKER MKTO Specimen Anatomical Collection Method Collection Time Receive d Time (Source) Location / / Volume Laterality Blood (Blood, 03/20/2021 7:40 AM 03/20/20 7:46 Venous) MECHANICAL CAR CHECKER AM MECHANICAL CAR CHECKER Keerthi Guzman M.D. LAB BLOOD ADD-ON Performing Organization Address City/[facility] Phon e Number [facility]- [address] [place] [phone] [place] [address] System [address] (ABNORMAL) Prothrombin Time (PT) (03/20/2021 7:40 AM MECHANICAL CAR CHECKER) [facility] Method Time Signature Prothrombin 27.0 (H) 9.4 - 12.5 03/20/2021 MKTO Time, P sec 8:13 AM MECHANICAL CAR CHECKER INR 2.4 0.9 - 1.1 03/20/2021 MKTO 8:13 AM MECHANICAL CAR CHECKER Comment: ----ADDITIONAL INFORMATION---- Standard intensity warfarin therapeutic range: 2.0 to 3.0 ?? High intensity warfarin therapeutic rang e: 2.5 to 3.5 Specimen Anatomical Collection Method Collection Time Receive d Time (Source) Location / / Volume Laterality Blood (Blood, 03/20/2021 7:40 AM 03/20/20 7:46 Venous) MECHANICAL CAR CHECKER AM MECHANICAL CAR CHECKER Keerthi Guzman M.D. LAB BLOOD ADD-ON Performing Organization Address City/[facility] Code Phon e Number [facility]- [address] [place] [phone] [place] [address] System in [address] Transfuse Fresh Frozen Plasma :INR >2: Invasive proc scheduled; 180 mL/hr (03/19/2021 6:37 PM MECHANICAL CAR CHECKER) Keerthi Guzman M.D. BLOOD TRANSFUSION ORDERABLES Transfuse Fresh Frozen Plasma :INR >2: Invasive proc scheduled; 180 mL/hr, 1 Units (03/19/2021 6:37 PM MECHANICAL CAR CHECKER) Keerthi Guzman M.D. BLOOD TRANSFUSION ORDERABLES Transfuse Red Blood Cells : (03/19/2021 3:21 PM MECHANICAL CAR CHECKER) Darian Thomas M.D., J.D. BLOOD TRANSFUSION ORDERAB LES Transfuse Red Blood Cells : , 1 Units (03/19/2021 3:21 PM MECHANICAL CAR CHECKER) Darian Thomas M.D., J.D. BLOOD TRANSFUSION ORDERAB LES (ABNORMAL) 25-Hydroxyvitamin D2 and D3 (03/19/2021 3:04 PM MECHANICAL CAR CHECKER) athologist Signature 25-Hydroxy D2 <4.0 ng/mL 03/24/2021 SDSC 4:43 PM MECHANICAL CAR CHECKER 25-Hydroxy D3 3.2 ng/mL 03/24/2021 SDSC 4:43 PM MECHANICAL CAR CHECKER 25-Hydroxy D <6.0 (L) ng/mL 03/24/2021 SDSC Total 4:43 PM MECHANICAL CAR CHECKER Comment: Interpretation: <10 ng/mL (severe defici ency) ----REFERENCE VALUE---- 25-HYDROXY D TOTAL (D2+D3) Optimum level s in the healthy population are 20-50, patients with bone disease may benefit from higher levels within this r vinh. ----ADDITIONAL INFORMATION---- This test was developed and its performa nce characteristics determined by [facility] in a manner consistent with CLIA requirements. This test has not been cleared or approved by the [place] and Drug Administration. Specimen Anatomical Collection Method Collection Time Receive d Time (Source) Location / / Volume Laterality Blood (Blood, 03/19/2021 3:04 PM 03/20/20 21 7:18 Venous) MECHANICAL CAR CHECKER AM MECHANICAL CAR CHECKER Keerthi Guzman M.D. LAB BLOOD ADD-ON Performing Organization Address City/State/ZIP Code Phon e Number [facility] [address] [place], [place] [address] [facility] [place] [address] Laboratory Medicine and Pathology [address] [place] Parathyroid Hormone (PTH) (03/19/2021 3:04 PM MECHANICAL CAR CHECKER) athologist Signature Parathyroid 44 15 - 65 03/19/2021 MKTO Hormone (PTH), S pg/mL 4:17 PM MECHANICAL CAR CHECKER Comment: Biotin has been identified by the chantelle lockett as a potential interfering substance. ??Higher concentr ations of biotin may be found in multivitamins, hair/nail supple ments, and workout supplements. ??If the result does not ma [facility] clinical observations, repeat testing after patient refrains fr om the use of supplements for at least 12 hours. Specimen Anatomical Collection Method Collection Time Receive d Time (Source) Location / / Volume Laterality Blood (Blood, 03/19/2021 3:04 PM 03/19/20 21 3:09 Venous) MECHANICAL CAR CHECKER PM MECHANICAL CAR CHECKER Keerthi Guzman M.D. LAB BLOOD ADD-ON Performing Organization Address City/[facility]/ZIP Code Phon e Number [address] [address] [place] [address] (ABNORMAL) pH (03/19/2021 3:04 PM MECHANICAL CAR CHECKER) P athologist Signature pH 7.51 (H) 7.35 - 7.45 03/19/2021 MKTO pH 3:13 PM MECHANICAL CAR CHECKER Specimen Anatomical Collection Method Collection Time Receive d Time (Source) Location / / Volume Laterality Blood 03/19/2021 3:04 PM 1 3:09 MECHANICAL CAR CHECKER PM MECHANICAL CAR CHECKER Darian Thomas M.D., J.D. LAB HISTORICAL ORDERS Performing Organization Address City/[facility]/ZIP Code Phon e Number [facility]- [address] [place] [phone] [place] [address] Calcium, Ionized (03/19/2021 3:04 PM MECHANICAL CAR CHECKER) P athologist Signature Calcium, 4.88 4.65 - 5.30 03/19/2021 MKTO Ionized, B mg/dL 3:13 PM MECHANICAL CAR CHECKER Specimen Anatomical Collection Method Collection Time Receive d Time (Source) Location / / Volume Laterality Blood 03/19/2021 3:04 PM 1 3:09 MECHANICAL CAR CHECKER PM MECHANICAL CAR CHECKER Darian Thomas M.D., J.D. LAB BLOOD NON ADD-ON Performing Organization Address City/State/ZIP Code Phon e Number [facility]- [address] [place] [phone] [place] [address] System in [address] (ABNORMAL) Potassium (03/19/2021 3:04 PM MECHANICAL CAR CHECKER) P athologist Signature Potassium, P 3.5 (L) 3.6 - 5.2 03/19/2021 MKTO mmol/L 3:36 PM MECHANICAL CAR CHECKER Specimen Anatomical Collection Method Collection Time Receive d Time (Source) Location / / Volume Laterality Blood (Blood, 03/19/2021 3:04 PM 03/19/20 3:09 Venous) MECHANICAL CAR CHECKER PM MECHANICAL CAR CHECKER Keerthi Guzman M.D. LAB BLOOD ADD-ON Performing Organization Address City/State/ZIP Code Phon e Number [facility]- [address] [place] [phone] [facility] [place] [address] System in [address] (TTE) 2D ECHO DOPPLER COLOR AND CONTRAST (03/19/2021 12:39 PM MECHANICAL CAR CHECKER) Patholo gist Method Time Signature Ejection Fraction [...] / / Volume Laterality 03/19/2021 10:58 AM MECHANICAL CAR CHECKER Impressions 03/19/2021 12:59 PM MECHANICAL CAR CHECKER Echo performed at the patient's bedside. ??Hemoglobin [...] For the complete report, see the [employer] Documents. Narrative 03/19/2021 12:59 PM MECHANICAL CAR CHECKER For the complete report, see the [employer] Documents. Final Impressions 1. Positive for atrial [...] ECHO PROCEDURES (ABNORMAL) Ammonia (03/19/2021 7:39 AM MECHANICAL CAR CHECKER) athologist Signature Ammonia, P 65 (H) <=51 03/19/2021 MKTO mcmol/L 8:26 AM MECHANICAL CAR CHECKER Specimen Anatomical Collection Method Collection Time Receive d Time (Source) Location / / Volume Laterality Blood (Blood, 03/19/2021 7:39 AM 03/19/20 8:06 Venous) MECHANICAL CAR CHECKER AM MECHANICAL CAR CHECKER Darian Thomas M.D., J.D. LAB BLOOD NON ADD-ON Performing Organization Address City/[facility] Code Phon e Number [phone] [place] [address] [place] [address] System in [address] (ABNORMAL) Phosphorus Inorganic (03/19/2021 7:39 AM MECHANICAL CAR CHECKER) athologist Signature Phosphorus 1.8 (L) 2.5 - 4.5 03/19/2021 MKTO (Inorganic), P mg/dL 8:32 AM MECHANICAL CAR CHECKER Specimen Anatomical Collection Method Collection Time Receive d Time (Source) Location / / Volume Laterality Blood (Blood, 03/19/2021 7:39 AM 03/19/20 7:57 Venous) MECHANICAL CAR CHECKER AM MECHANICAL CAR CHECKER Darian Thomas M.D., J.D. LAB BLOOD ADD-ON Performing Organization Address City/[facility]/ZIP Code Phon e Number [facility]- [address] [place] [phone] [place] [address] System in [address] (ABNORMAL) Magnesium (03/19/2021 7:39 AM MECHANICAL CAR CHECKER) P athologist Signature Magnesium, P 1.5 (L) 1.7 - 2.3 03/19/2021 MKTO mg/dL 8:32 AM MECHANICAL CAR CHECKER Specimen Anatomical Collection Method Collection Time Receive d Time (Source) Location / / Volume Laterality Blood (Blood, 03/19/2021 7:39 AM 03/19/20 7:57 Venous) MECHANICAL CAR CHECKER AM MECHANICAL CAR CHECKER Darian Thomas M.D., J.D. LAB BLOOD ADD-ON Performing Organization Address City/State/ZIP Code Phon e Number [facility]- [address] [place] [address] [place] [address] (ABNORMAL) Comprehensive Metabolic Panel (03/19/2021 7:39 AM MECHANICAL CAR CHECKER) Analysis Performed At Patho logist Time Signature Potassium, P 3.1 (L) 3.6 - 5.2 03/19/2021 MKTO mmol/L 8:32 AM MECHANICAL CAR CHECKER Sodium, P 140 135 - 145 03/19/2021 MKTO mmol/L 8:32 AM MECHANICAL CAR CHECKER Chloride, P 102 98 - 107 03/19/2021 MKTO mmol/L 8:32 AM MECHANICAL CAR CHECKER Bicarbonate, P 19 (L) 22 - 29 03/19/2021 MKTO mmol/L 8:32 AM MECHANICAL CAR CHECKER Anion Gap, P 19 (H) 7 - 15 03/19/2021 MKTO 8:32 AM MECHANICAL CAR CHECKER BUN (Blood Urea 6 6 - 21 03/19/2021 MKTO Nitrogen), P mg/dL 8:32 AM MECHANICAL CAR CHECKER Creatinine 0.33 (L) 0.59 - 03/19/2021 MKTO 1.04 mg/dL 8:32 AM MECHANICAL CAR CHECKER eGFR-Black/Afri >90 >=60 03/19/2021 MKTO can [place] mL/min/BSA 8:32 AM MECHANICAL CAR CHECKER Comment: ----ADDITIONAL INFORMATION---- Estimated GFR calculated using the 2009 CKD_EPI creatinine equation. eGFR Non-Black/ >90 >=60 mL/min/BSA 03/19/2021 8:32 AM MECHANICAL CAR CHECKER MKTO Comment: ----ADDITIONAL INFORMATION---- Estimated GFR calculated using the 2009 CKD_EPI creatinine equation. Calcium, Total, P 10.6 (H) 8.6 - 10.0 mg/dL 03/19/2021 8:32 AM MECHANICAL CAR CHECKER MKTO Glucose, P 116 70 - 140 mg/dL 03/19/2021 8:32 AM MECHANICAL CAR CHECKER M KTO Protein, Total, P 6.9 6.3 - 7.9 g/dL 03/19/2021 8:32 A M MECHANICAL CAR CHECKER MKTO Albumin, P 6.7 (H) 3.5 - 5.0 g/dL 03/19/2021 9:07 AM MECHANICAL CAR CHECKER M KTO Aspartate Aminotransferase 33 8 - 43 U/L 03/19/2021 8 :32 AM MECHANICAL CAR CHECKER MKTO (AST), P Alkaline Phosphatase, P 43 35 - 104 U/L 03/19/2021 8: 32 AM MECHANICAL CAR CHECKER MKTO Alanine Aminotransferase 10 7 - 45 U/L 03/19/2021 8:3 2 AM MECHANICAL CAR CHECKER MKTO (ALT), P Bilirubin, Total, P 6.6 (H) <=1.2 mg/dL 03/19/2021 8:32 AM MECHANICAL CAR CHECKER MKTO Specimen Anatomical Collection Method Collection Time Receive d Time (Source) Location / / Volume Laterality Blood (Blood, 03/19/2021 7:39 AM 03/19/20 7:57 Venous) MECHANICAL CAR CHECKER AM MECHANICAL CAR CHECKER Darian Thomas M.D., J.D. LAB BLOOD ADD-ON Performing Organization Address City/State/ZIP Code Phon e Number [facility]- [address] [place] [address] [place] [address] System in [address] (ABNORMAL) Prothrombin Time (PT) (03/19/2021 7:39 AM MECHANICAL CAR CHECKER) [facility] Method Time Signature Prothrombin 28.4 (H) 9.4 - 12.5 03/19/2021 MKTO Time, P sec 8:10 AM MECHANICAL CAR CHECKER INR 2.5 0.9 - 1.1 03/19/2021 MKTO 8:10 AM MECHANICAL CAR CHECKER Comment: ----ADDITIONAL INFORMATION---- Standard intensity warfarin therapeutic range: 2.0 to 3.0 ?? High intensity warfarin therapeutic rang e: 2.5 to 3.5 Specimen Anatomical Collection Method Collection Time Receive d Time (Source) Location / / Volume Laterality Blood (Blood, 03/19/2021 7:39 AM 03/19/20 7:57 Venous) MECHANICAL CAR CHECKER AM MECHANICAL CAR CHECKER Darian Thomas M.D., J.D. LAB BLOOD ADD-ON Performing Organization Address City/State/ZIP Code Phon e Number [facility]- [address] [place] [phone] [place] [address] [place] [address] System in [address] (ABNORMAL) CBC with Differential, Blood (03/19/2021 7:39 AM MECHANICAL CAR CHECKER) [facility] Method Time Signature Hemoglobin 6.8 (L) 11.6 - 03/19/2021 MKTO 15.0 g/dL 8:05 AM MECHANICAL CAR CHECKER Hematocrit 20.4 (L) 35.5 - 03/19/2021 MKTO 44.9 % 8:05 AM MECHANICAL CAR CHECKER Erythrocytes 2.25 (L) 3.92 - 03/19/2021 MKTO 5.13 8:05 AM MECHANICAL CAR CHECKER x10(12)/L MCV 90.7 78.2 - 03/19/2021 MKTO 97.9 fL 8:05 AM MECHANICAL CAR CHECKER RBC Distrib Width 20.7 (H) 12.2 - 03/19/2021 MKTO 16.1 % 8:05 AM MECHANICAL CAR CHECKER Platelet Count 92 (L) 157 - 371 03/19/2021 MKTO x10(9)/L 8:05 AM MECHANICAL CAR CHECKER Leukocytes 5.6 3.4 - 9.6 03/19/2021 MKTO x10(9)/L 8:05 AM MECHANICAL CAR CHECKER Neutrophils 3.54 1.56 - 03/19/2021 MKTO 6.45 8:05 AM MECHANICAL CAR CHECKER x10(9)/L Lymphocytes 1.31 0.95 - 03/19/2021 MKTO 3.07 8:05 AM MECHANICAL CAR CHECKER x10(9)/L Monocytes 0.64 0.26 - 03/19/2021 MKTO 0.81 8:05 AM MECHANICAL CAR CHECKER x10(9)/L Eosinophils 0.07 0.03 - 03/19/2021 MKTO 0.48 8:05 AM MECHANICAL CAR CHECKER x10(9)/L Basophils <0.03 0.01 - 03/19/2021 MKTO 0.08 8:05 AM MECHANICAL CAR CHECKER x10(9)/L Specimen Anatomical Collection Method Collection Time Receive d Time (Source) Location / / Volume Laterality Blood (Blood, 03/19/2021 7:39 AM 03/19/20 7:57 Venous) MECHANICAL CAR CHECKER AM MECHANICAL CAR CHECKER Darian Thomas M.D., J.D. LAB BLOOD ADD-ON Performing Organization Address City/State/ZIP [facility] Phon e Number [facility]- [facility] [place] [address] [place] [address] System in [address] (ABNORMAL) Bilirubin, Direct (03/19/2021 7:38 AM MECHANICAL CAR CHECKER) P athologist Signature Bilirubin, 1.6 (H) 0.0 - 0.3 03/19/2021 MKTO Direct, P mg/dL 1:13 PM MECHANICAL CAR CHECKER Specimen Anatomical Collection Method Collection Time Receive d Time (Source) Location / / Volume Laterality Blood (Blood, 03/19/2021 7:38 AM 03/19/20 Venous) MECHANICAL CAR CHECKER 12:25 PM MECHANICAL CAR CHECKER Keerthi Guzman M.D. LAB BLOOD ADD-ON Performing Organization Address City/State/[facility] Code Phon e Number [facility]- [address] [place] [phone] [place] [address] System in [address] ECG 12 Lead (03/19/2021 6:44 AM MECHANICAL CAR CHECKER) P athologist Signature Ventricular Rate 108 BPM MUSE ECG/Min [place] Interval 156 ms MUSE QRSD Interval 82 ms MUSE QT Interval 298 ms MUSE QTC Interval 399 ms MUSE P [place] 43 degrees MUSE R [place] 41 degrees MUSE T Wave [place] -17 degrees MUSE Specimen Anatomical Collection Method Collection Time Receive d Time (Source) Location / / Volume Laterality 03/19/2021 6:44 AM 6:49 MECHANICAL CAR CHECKER AM MECHANICAL CAR CHECKER Impressions MUSE - 03/19/2021 6:49 AM MECHANICAL CAR CHECKER Sinus tachycardia Nonspecific T wave abnormality When compared with ECG of 10-NOV-2021 13 :01, QT has shortened Reviewed by STERLING Garrison Narrative This result has an attachment that is no t available. Procedure Note Elijah Roberts M.D. - 03/19/2021Formatt ing of this note might be different from the original. IMPRESSION: Sinus tachycardia Nonspecific T wave abnormality When compared with ECG of 12-MAR-2021 13 :01, QT has shortened Reviewed by STERLING Garrison Sivakumar Reyse M.D. ECG ORDERABLES Performing Organization Address City/[facility]/ZIP Code Phon e Number MUSE BERTHA NA (ABNORMAL) Hemoglobin (03/18/2021 7:00 PM MECHANICAL CAR CHECKER) athologist Signature Hemoglobin 7.6 (L) 11.6 - 15.0 03/18/2021 MKTO g/dL 7:07 PM MECHANICAL CAR CHECKER Specimen Anatomical Collection Method Collection Time Receive d Time (Source) Location / / Volume Laterality Blood (Blood, 03/18/2021 7:00 PM 03/18/20 7:03 Venous) MECHANICAL CAR CHECKER PM MECHANICAL CAR CHECKER Darian Thomas M.D., J.D. LAB BLOOD ADD-ON Performing Organization Address City/[facility] Phon e Number [facility]- [address] [place] [phone] [place] [address] System in [address] (ABNORMAL) Ammonia (03/18/2021 6:59 PM MECHANICAL CAR CHECKER) athologist Signature Ammonia, P 55 (H) <=51 03/18/2021 MKTO mcmol/L 7:23 PM MECHANICAL CAR CHECKER Specimen Anatomical Collection Method Collection Time Receive d Time (Source) Location / / Volume Laterality Blood (Blood, 03/18/2021 6:59 PM 03/18/20 7:03 Venous) MECHANICAL CAR CHECKER PM MECHANICAL CAR CHECKER Darian Thomas M.D., J.D. LAB BLOOD NON ADD-ON Performing Organization Address City/[facility]/ZIP Code Phon e Number [facility]- [address] [place] [phone] [place] [address] System in [address] (ABNORMAL) Prothrombin Time (PT) (03/18/2021 8:35 AM MECHANICAL CAR CHECKER) [facility] gist Method Time Signature Prothrombin 28.8 (H) 9.4 - 12.5 03/18/2021 MKTO Time, P sec 9:20 AM MECHANICAL CAR CHECKER INR 2.6 0.9 - 1.1 03/18/2021 MKTO 9:20 AM MECHANICAL CAR CHECKER Comment: ----ADDITIONAL INFORMATION---- Standard intensity warfarin therapeutic range: 2.0 to 3.0 ?? High intensity warfarin therapeutic rang e: 2.5 to 3.5 Specimen Anatomical Collection Method Collection Time Receive d Time (Source) Location / / Volume Laterality Blood (Blood, 03/18/2021 8:35 AM 03/18/20 8:41 Venous) MECHANICAL CAR CHECKER AM MECHANICAL CAR CHECKER Darian Thomas M.D., J.D. LAB BLOOD ADD-ON Performing Organization Address City/State/ZIP Code Phon e Number [facility]- [address] [place] [address] [place] [address] System in [address] (ABNORMAL) Comprehensive Metabolic Panel (03/18/2021 8:35 AM MECHANICAL CAR CHECKER) Analysis Performed At [facility] logist Time Signature Potassium, P 3.1 (L) 3.6 - 5.2 03/18/2021 MKTO mmol/L 9:07 AM MECHANICAL CAR CHECKER Sodium, P 141 135 - 145 03/18/2021 MKTO mmol/L 9:07 AM MECHANICAL CAR CHECKER Chloride, P 106 98 - 107 03/18/2021 MKTO mmol/L 9:07 AM MECHANICAL CAR CHECKER Bicarbonate, P 20 (L) 22 - 29 03/18/2021 MKTO mmol/L 9:07 AM MECHANICAL CAR CHECKER Anion Gap, P 15 7 - 15 03/18/2021 MKTO 9:07 AM MECHANICAL CAR CHECKER BUN (Blood Urea 7 6 - 21 03/18/2021 MKTO Nitrogen), P mg/dL 9:07 AM MECHANICAL CAR CHECKER Creatinine 0.32 (L) 0.59 - 03/18/2021 MKTO 1.04 mg/dL 9:07 AM MECHANICAL CAR CHECKER eGFR-Black/Afri >90 >=60 03/18/2021 MKTO can [place] mL/min/BSA 9:07 AM MECHANICAL CAR CHECKER Comment: ----ADDITIONAL INFORMATION---- Estimated GFR calculated using the 2009 CKD_EPI creatinine equation. eGFR Non-Black/ >90 >=60 mL/min/BSA 03/18/2021 9:07 AM MECHANICAL CAR CHECKER MKTO Comment: ----ADDITIONAL INFORMATION---- Estimated GFR calculated using the 2009 CKD_EPI creatinine equation. Calcium, Total, P 10.2 (H) 8.6 - 10.0 mg/dL 03/18/2021 9:07 AM MECHANICAL CAR CHECKER MKTO Glucose, P 109 70 - 140 mg/dL 03/18/2021 9:07 AM MECHANICAL CAR CHECKER M KTO Protein, Total, P 6.3 6.3 - 7.9 g/dL 03/18/2021 9:07 A M MECHANICAL CAR CHECKER MKTO Albumin, P 5.4 (H) 3.5 - 5.0 g/dL 03/18/2021 9:07 AM MECHANICAL CAR CHECKER M KTO Aspartate Aminotransferase 32 8 - 43 U/L 03/18/2021 9 :07 AM MECHANICAL CAR CHECKER MKTO (AST), P Alkaline Phosphatase, P 42 35 - 104 U/L 03/18/2021 9: 07 AM MECHANICAL CAR CHECKER MKTO Alanine Aminotransferase 8 7 - 45 U/L 03/18/2021 9:0 7 AM MECHANICAL CAR CHECKER MKTO (ALT), P Bilirubin, Total, P 7.7 (H) <=1.2 mg/dL 03/18/2021 9:07 AM MECHANICAL CAR CHECKER MKTO Specimen Anatomical Collection Method Collection Time Receive d Time (Source) Location / / Volume Laterality Blood (Blood, 03/18/2021 8:35 AM 03/18/20 21 8:41 Venous) MECHANICAL CAR CHECKER AM MECHANICAL CAR CHECKER Darian Thomas M.D., J.D. LAB BLOOD ADD-ON Performing Organization Address City/State/ZIP Code Phon e Number [facility]- [address] [place] [phone] [place] [address] System in [address] (ABNORMAL) CBC with Differential, Blood (03/18/2021 8:35 AM MECHANICAL CAR CHECKER) [facility] gist Method Time Signature Hemoglobin 7.1 (L) 11.6 - 03/18/2021 MKTO 15.0 g/dL 8:46 AM MECHANICAL CAR CHECKER Hematocrit 21.3 (L) 35.5 - 03/18/2021 MKTO 44.9 % 8:46 AM MECHANICAL CAR CHECKER Erythrocytes 2.44 (L) 3.92 - 03/18/2021 MKTO 5.13 8:46 AM MECHANICAL CAR CHECKER x10(12)/L MCV 87.3 78.2 - 03/18/2021 MKTO 97.9 fL 8:46 AM MECHANICAL CAR CHECKER RBC Distrib Width 19.8 (H) 12.2 - 03/18/2021 MKTO 16.1 % 8:46 AM MECHANICAL CAR CHECKER Platelet Count 77 (L) 157 - 371 03/18/2021 MKTO x10(9)/L 8:46 AM MECHANICAL CAR CHECKER Leukocytes 6.2 3.4 - 9.6 03/18/2021 MKTO x10(9)/L 8:46 AM MECHANICAL CAR CHECKER Neutrophils 3.96 1.56 - 03/18/2021 MKTO 6.45 8:46 AM MECHANICAL CAR CHECKER x10(9)/L Lymphocytes 1.35 0.95 - 03/18/2021 MKTO 3.07 8:46 AM MECHANICAL CAR CHECKER x10(9)/L Monocytes 0.74 0.26 - 03/18/2021 MKTO 0.81 8:46 AM MECHANICAL CAR CHECKER x10(9)/L Eosinophils 0.08 0.03 - 03/18/2021 MKTO 0.48 8:46 AM MECHANICAL CAR CHECKER x10(9)/L Basophils <0.03 0.01 - 03/18/2021 MKTO 0.08 8:46 AM MECHANICAL CAR CHECKER x10(9)/L Specimen Anatomical Collection Method Collection Time Receive d Time (Source) Location / / Volume Laterality Blood (Blood, 03/18/2021 8:35 AM 03/18/20 8:41 Venous) MECHANICAL CAR CHECKER AM MECHANICAL CAR CHECKER Darian Thomas M.D., J.D. LAB BLOOD ADD-ON Performing Organization Address City/State/ZIP Code Phon e Number [facility]- [address] [place] [address] [place] [address] System in [place] [address] [facility] Magnesium (03/17/2021 6:35 AM MECHANICAL CAR CHECKER) P athologist Signature Magnesium, P 1.7 1.7 - 2.3 03/17/2021 MKTO mg/dL 7:24 AM MECHANICAL CAR CHECKER Specimen Anatomical Collection Method Collection Time Receive d Time (Source) Location / / Volume Laterality Blood (Blood, 03/17/2021 6:35 AM 03/17/20 6:43 Venous) MECHANICAL CAR CHECKER AM MECHANICAL CAR CHECKER Ulises Santillan LAB BLOOD ADD-ON Performing Organization Address City/State/ZIP Code Phon e Number [facility]- [address] [place] [phone] [place] [address] System in [place] [address] [place] [address] (ABNORMAL) Basic Metabolic Panel (03/17/2021 6:35 AM MECHANICAL CAR CHECKER) Analysis Performed At Patho logist Time Signature Potassium, P 3.7 3.6 - 5.2 03/17/2021 MKTO mmol/L 7:24 AM MECHANICAL CAR CHECKER Sodium, P 141 135 - 145 03/17/2021 MKTO mmol/L 7:24 AM MECHANICAL CAR CHECKER Chloride, P 106 98 - 107 03/17/2021 MKTO mmol/L 7:24 AM MECHANICAL CAR CHECKER Bicarbonate, P 21 (L) 22 - 29 03/17/2021 MKTO mmol/L 7:24 AM MECHANICAL CAR CHECKER Anion Gap, P 14 7 - 15 03/17/2021 MKTO 7:24 AM MECHANICAL CAR CHECKER BUN (Blood Urea 5 (L) 6 - 21 03/17/2021 MKTO Nitrogen), P mg/dL 7:24 AM MECHANICAL CAR CHECKER Creatinine 0.35 (L) 0.59 - 03/17/2021 MKTO 1.04 mg/dL 7:24 AM MECHANICAL CAR CHECKER eGFR-Black/Afri >90 >=60 03/17/2021 MKTO can [place]an mL/min/BSA 7:24 AM MECHANICAL CAR CHECKER Comment: ----ADDITIONAL INFORMATION---- Estimated GFR calculated using the 2009 CKD_EPI creatinine equation. eGFR Non-Black/ >90 >=60 mL/min/BSA 03/17/2021 7:24 AM MECHANICAL CAR CHECKER MKTO Comment: ----ADDITIONAL INFORMATION---- Estimated GFR calculated using the 2009 CKD_EPI creatinine equation. Calcium, Total, P 9.7 8.6 - 10.0 mg/dL 03/17/2021 7:24 AM MECHANICAL CAR CHECKER MKTO Glucose, P 116 70 - 140 mg/dL 03/17/2021 7:24 AM MECHANICAL CAR CHECKER M KTO Specimen Anatomical Collection Method Collection Time Receive d Time (Source) Location / / Volume Laterality Blood (Blood, 03/17/2021 6:35 AM 03/17/20 6:43 Venous) MECHANICAL CAR CHECKER AM MECHANICAL CAR CHECKER Harish Ansari P.A.-C., M.S. LAB BLOOD ADD-ON Performing Organization Address City/State/ZIP Code Phon e Number [facility]- [address] [place] [phone] [place] [address] [place] [address] System in [address] (ABNORMAL) CBC with Differential, Blood (03/17/2021 6:35 AM MECHANICAL CAR CHECKER) [facility] gist Method Time Signature Hemoglobin 7.7 (L) 11.6 - 03/17/2021 MKTO 15.0 g/dL 6:58 AM MECHANICAL CAR CHECKER Hematocrit 22.3 (L) 35.5 - 03/17/2021 MKTO 44.9 % 6:58 AM MECHANICAL CAR CHECKER Erythrocytes 2.56 (L) 3.92 - 03/17/2021 MKTO 5.13 6:58 AM MECHANICAL CAR CHECKER x10(12)/L MCV 87.1 78.2 - 03/17/2021 MKTO 97.9 fL 6:58 AM MECHANICAL CAR CHECKER RBC Distrib Width 19.3 (H) 12.2 - 03/17/2021 MKTO 16.1 % 6:58 AM MECHANICAL CAR CHECKER Platelet Count 68 (L) 157 - 371 03/17/2021 MKTO x10(9)/L 6:58 AM MECHANICAL CAR CHECKER Leukocytes 6.1 3.4 - 9.6 03/17/2021 MKTO x10(9)/L 6:58 AM MECHANICAL CAR CHECKER Neutrophils 3.82 1.56 - 03/17/2021 MKTO 6.45 6:58 AM MECHANICAL CAR CHECKER x10(9)/L Lymphocytes 1.39 0.95 - 03/17/2021 MKTO 3.07 6:58 AM MECHANICAL CAR CHECKER x10(9)/L Monocytes 0.77 0.26 - 03/17/2021 MKTO 0.81 6:58 AM MECHANICAL CAR CHECKER x10(9)/L Eosinophils 0.05 0.03 - 03/17/2021 MKTO 0.48 6:58 AM MECHANICAL CAR CHECKER x10(9)/L Basophils <0.03 0.01 - 03/17/2021 MKTO 0.08 6:58 AM MECHANICAL CAR CHECKER x10(9)/L Specimen Anatomical Collection Method Collection Time Receive d Time (Source) Location / / Volume Laterality Blood (Blood, 03/17/2021 6:35 AM 03/17/20 6:42 Venous) MECHANICAL CAR CHECKER AM MECHANICAL CAR CHECKER Harish Ansari P.A.-C., M.S. LAB BLOOD ADD-ON Performing Organization Address City/State/ZIP Code Phon e Number [address] [address] [place] [address] System in [address] (ABNORMAL) Hematocrit (03/16/2021 4:14 PM MECHANICAL CAR CHECKER) P athologist Signature Hematocrit 23.7 (L) 35.5 - 44.9 03/16/2021 MKTO % 4:25 PM MECHANICAL CAR CHECKER Specimen Anatomical Collection Method Collection Time Receive d Time (Source) Location / / Volume Laterality Blood (Blood, 03/16/2021 4:14 PM 03/16/20 4:23 Venous) MECHANICAL CAR CHECKER PM MECHANICAL CAR CHECKER Lizet Navarro M.D. LAB BLOOD ADD-ON Performing Organization Address City/[facility]/ZIP Code Phon e Number [address] [address] [place] [address] System in [address] (ABNORMAL) Hemoglobin (03/16/2021 4:14 PM MECHANICAL CAR CHECKER) P athologist Signature Hemoglobin 8.2 (L) 11.6 - 15.0 03/16/2021 MKTO g/dL 4:25 PM MECHANICAL CAR CHECKER Specimen Anatomical Collection Method Collection Time Receive d Time (Source) Location / / Volume Laterality Blood (Blood, 03/16/2021 4:14 PM 03/16/20 4:23 Venous) MECHANICAL CAR CHECKER PM MECHANICAL CAR CHECKER Lizet Navarro M.D. LAB BLOOD ADD-ON Performing Organization Address City/[facility]/ZIP Code Phon e Number [address] [address] [place] [address] System in [address] (ABNORMAL) Hematocrit (03/16/2021 12:58 PM MECHANICAL CAR CHECKER) P athologist Signature Hematocrit 24.8 (L) 35.5 - 44.9 03/16/2021 MKTO % 1:27 PM MECHANICAL CAR CHECKER Specimen Anatomical Collection Method Collection Time Receive d Time (Source) Location / / Volume Laterality Blood (Blood, 03/16/2021 12:58 03/16/2021 1:04 Venous) PM MECHANICAL CAR CHECKER PM MECHANICAL CAR CHECKER Lizet Navarro M.D. LAB BLOOD ADD-ON Performing Organization Address City/State/ZIP Code Phon e Number [facility]- [address] [place] [phone] [place] [address] System in [address] (ABNORMAL) Hemoglobin (03/16/2021 12:58 PM MECHANICAL CAR CHECKER) athologist Signature Hemoglobin 8.3 (L) 11.6 - 15.0 03/16/2021 MKTO g/dL 1:27 PM MECHANICAL CAR CHECKER Specimen Anatomical Collection Method Collection Time Receive d Time (Source) Location / / Volume Laterality Blood (Blood, 03/16/2021 12:58 03/16/2021 1:04 Venous) PM MECHANICAL CAR CHECKER PM MECHANICAL CAR CHECKER Lizet Navarro M.D. LAB BLOOD ADD-ON Performing Organization Address City/State/ZIP Code Phon e Number [facility]- [address] [place] [phone] [place] [address] Transfuse Red Blood Cells : (03/16/2021 11:58 AM MECHANICAL CAR CHECKER) Lizet Navarro M.D. BLOOD TRANSFUSION ORDERABLES Transfuse Red Blood Cells : , 2 Units (03/16/2021 11:58 AM MECHANICAL CAR CHECKER) Lizet Navarro M.D. BLOOD TRANSFUSION ORDERABLES Transfuse Red Blood Cells : (03/16/2021 11:08 AM MECHANICAL CAR CHECKER) Lizet Navarro M.D. BLOOD TRANSFUSION ORDERABLES Transfuse Fresh Frozen Plasma :Bleeding with altered coagulation; 180 mL/hr (03/16/2021 10:21 AM MECHANICAL CAR CHECKER) Lizet Navarro M.D. BLOOD TRANSFUSION ORDERABLES Transfuse Fresh Frozen Plasma :Bleeding with altered coagulation; 180 mL/hr, 2 Units (03/16/2021 10:21 AM MECHANICAL CAR CHECKER) Lizet Navarro M.D. BLOOD TRANSFUSION ORDERABLES Transfuse Fresh Frozen Plasma :Bleeding with altered coagulation; 180 mL/hr (03/16/2021 10:20 AM MECHANICAL CAR CHECKER) Lizet Navarro M.D. BLOOD TRANSFUSION ORDERABLES Transfuse Red Blood Cells : (03/16/2021 9:06 AM MECHANICAL CAR CHECKER) Nola Huitron APRN, C.N.P., M.S.N. BLOOD TRANSFUSI ON ORDERABLES Transfuse Red Blood Cells : , 1 Units (03/16/2021 9:06 AM MECHANICAL CAR CHECKER) Nola Huitron APRN, C.N.P., M.S.N. BLOOD TRANSFUSI ON ORDERABLES (ABNORMAL) Fibrinogen (03/16/2021 7:32 AM MECHANICAL CAR CHECKER) P athologist Signature Fibrinogen, P 135 (L) 200 - 393 03/16/2021 MKTO mg/dL 7:56 AM MECHANICAL CAR CHECKER Specimen Anatomical Collection Method Collection Time Receive d Time (Source) Location / / Volume Laterality Blood (Blood, 03/16/2021 7:32 AM 03/16/20 7:40 Venous) MECHANICAL CAR CHECKER AM MECHANICAL CAR CHECKER Tariq Santillan LAB BLOOD ADD-ON Performing Organization Address City/State/ZIP Code Phon e Number [facility]- [address] [place] [phone] [facility] [place] [address] System in [address] (ABNORMAL) APTT (Activated Partial Thromboplastin Time) (03/16/2021 7:32 AM MECHANICAL CAR CHECKER) P athologist Signature Activated 54 (H) 25 - 37 03/16/2021 MKTO Partial sec 7:53 AM MECHANICAL CAR CHECKER Thrombopl Time, P Specimen Anatomical Collection Method Collection Time Receive d Time (Source) Location / / Volume Laterality Blood (Blood, 03/16/2021 7:32 AM 03/16/20 7:40 Venous) MECHANICAL CAR CHECKER AM MECHANICAL CAR CHECKER Tariq DanielSSuma LAB BLOOD ADD-ON Performing Organization Address City/[facility]/ZIP Code Phon e Number [facility]- [address] [place] [phone] [place] [address] System in [address] (ABNORMAL) Prothrombin Time (PT) (03/16/2021 7:32 AM MECHANICAL CAR CHECKER) Patholo gist Method Time Signature Prothrombin 23.4 (H) 9.4 - 12.5 03/16/2021 MKTO Time, P sec 7:51 AM MECHANICAL CAR CHECKER INR 2.1 0.9 - 1.1 03/16/2021 MKTO 7:51 AM MECHANICAL CAR CHECKER Comment: ----ADDITIONAL INFORMATION---- Standard intensity warfarin therapeutic range: 2.0 to 3.0 ?? High intensity warfarin therapeutic rang e: 2.5 to 3.5 Specimen Anatomical Collection Method Collection Time Receive d Time (Source) Location / / Volume Laterality Blood (Blood, 03/16/2021 7:32 AM 03/16/20 7:40 Venous) MECHANICAL CAR CHECKER AM MECHANICAL CAR CHECKER Tariq DanielSSuma LAB BLOOD ADD-ON Performing Organization Address City/[facility]/ZIP Code Phon e Number [facility]- [address] [place] [phone] [place] [address] System in [address] (ABNORMAL) Hemoglobin (03/16/2021 7:31 AM MECHANICAL CAR CHECKER) P athologist Signature Hemoglobin 5.3 (CL) 11.6 - 15.0 03/16/2021 MKTO g/dL 7:57 AM MECHANICAL CAR CHECKER Specimen Anatomical Collection Method Collection Time Receive d Time (Source) Location / / Volume Laterality Blood (Blood, 03/16/2021 7:31 AM 03/16/20 7:40 Venous) MECHANICAL CAR CHECKER AM MECHANICAL CAR CHECKER Tariq DanielSSuma LAB BLOOD ADD-ON Performing Organization Address City/[facility]/ZIP Code Phon e Number [facility]- [address] [place] [phone] [place] [address] System in [address] Testing Location (03/16/2021 5:44 AM MECHANICAL CAR CHECKER) P athologist Signature Testing [facility] DEFAULT 03/16/2021 MKTO Location 5:50 AM MECHANICAL CAR CHECKER Specimen Anatomical Collection Method Collection Time Receive d Time (Source) Location / / Volume Laterality Blood 03/16/2021 5:44 AM 5:49 MECHANICAL CAR CHECKER AM MECHANICAL CAR CHECKER Tariq CheryB.SSuma LAB BLOOD BANK TEST ORDERABL ES Performing Organization Address City/[facility] Phon e Number [address] [address] [place] [address] System in [address] Type and Screen (with reflex Antibody ID) (03/16/2021 5:44 AM MECHANICAL CAR CHECKER) [facility] gist Method Time Signature ABO Group B 03/16/2021 MKTO 6:49 AM MECHANICAL CAR CHECKER Rh Type POS 03/16/2021 MKTO 6:49 AM MECHANICAL CAR CHECKER Antibody Screen NEG 03/16/2021 MKTO 6:49 AM MECHANICAL CAR CHECKER Type & Screen 03/19/2021 03/16/2021 MKTO Expiration 23:59 6:49 AM MECHANICAL CAR CHECKER ELXM Eligible Y 03/16/2021 MKTO 6:49 AM MECHANICAL CAR CHECKER Specimen Anatomical Collection Method Collection Time Receive d Time (Source) Location / / Volume Laterality Blood (Blood, 03/16/2021 5:44 AM 03/16/20 5:49 Venous) MECHANICAL CAR CHECKER AM MECHANICAL CAR CHECKER Tariq CheryB.S. LAB BLOOD BANK TEST ORDERABL ES Performing Organization Address City/[facility]/ZIP Code Phon e Number [facility]- [address] [place] [phone] [place] [address] System in [address] Glucose, POCT (03/16/2021 5:43 AM MECHANICAL CAR CHECKER) athologist Signature Glucose, POCT, 121 70 - 140 03/16/2021 MKTO B mg/dL 5:43 AM MECHANICAL CAR CHECKER Specimen Anatomical Collection Method Collection Time Receive d Time (Source) Location / / Volume Laterality Blood 03/16/2021 5:43 AM 5:57 MECHANICAL CAR CHECKER AM MECHANICAL CAR CHECKER Nick Rals LAB POCT ORDERABLES-MANUAL Performing Organization Address [facility] Phon e Number [facility]- [address] [place] [phone] [place] [address] Transfuse Fresh Frozen Plasma :Bleeding with altered coagulation; 180 mL/hr (03/16/2021 5:00 AM MECHANICAL CAR CHECKER) Lizet Navarro M.D. BLOOD TRANSFUSION ORDERABLES Transfuse Fresh Frozen Plasma :Bleeding with altered coagulation; 180 mL/hr, 2 Units (03/16/2021 5:00 AM MECHANICAL CAR CHECKER) Lizet Navarro M.D. BLOOD TRANSFUSION ORDERABLES (ABNORMAL) Calcium, Ionized (03/16/2021 4:57 AM MECHANICAL CAR CHECKER) P athologist Signature Calcium, 4.49 (L) 4.65 - 03/16/2021 MKTO Ionized, B 5.30 mg/dL 5:19 AM MECHANICAL CAR CHECKER Specimen Anatomical Collection Method Collection Time Receive d Time (Source) Location / / Volume Laterality Blood 03/16/2021 4:57 AM 5:05 MECHANICAL CAR CHECKER AM MECHANICAL CAR CHECKER Nola Huitron APRN C.N.P., M.S.N. LAB BLOOD NON A DD-ON Performing Organization Address City/[facility]/ZIP Code Phon e Number [facility]- [address] [place] [phone] [place] [address] System in [address] (ABNORMAL) pH (03/16/2021 4:57 AM MECHANICAL CAR CHECKER) P athologist Signature pH 7.49 (H) 7.35 - 7.45 03/16/2021 MKTO pH 5:19 AM MECHANICAL CAR CHECKER Specimen Anatomical Collection Method Collection Time Receive d Time (Source) Location / / Volume Laterality Blood 03/16/2021 4:57 AM 5:05 MECHANICAL CAR CHECKER AM MECHANICAL CAR CHECKER Nola Huitron APRN, C.N.P., M.S.N. LAB HISTORICAL ORDERS Performing Organization Address [facility] Phon e Number [address] [phone] [place] [address] (ABNORMAL) CBC without Differential (03/16/2021 4:21 AM MECHANICAL CAR CHECKER) Patholo gist Method Time Signature Hemoglobin 6.2 (L) 11.6 - 03/16/2021 MKTO 15.0 g/dL 4:54 AM MECHANICAL CAR CHECKER Hematocrit 18.3 (L) 35.5 - 03/16/2021 MKTO 44.9 % 4:54 AM MECHANICAL CAR CHECKER Erythrocytes 1.95 (L) 3.92 - 03/16/2021 MKTO 5.13 4:54 AM MECHANICAL CAR CHECKER x10(12)/L MCV 93.8 78.2 - 03/16/2021 MKTO 97.9 fL 4:54 AM MECHANICAL CAR CHECKER RBC Distrib Width 20.1 (H) 12.2 - 03/16/2021 MKTO 16.1 % 4:54 AM MECHANICAL CAR CHECKER Platelet Count 80 (L) 157 - 371 03/16/2021 MKTO x10(9)/L 4:54 AM MECHANICAL CAR CHECKER Leukocytes 6.3 3.4 - 9.6 03/16/2021 MKTO x10(9)/L 4:54 AM MECHANICAL CAR CHECKER Specimen Anatomical Collection Method Collection Time Receive d Time (Source) Location / / Volume Laterality Blood (Blood, 03/16/2021 4:21 AM 03/16/20 4:30 Venous) MECHANICAL CAR CHECKER AM MECHANICAL CAR CHECKER Nola Huitron APRN, C.N.P., M.S.N. LAB BLOOD ADD-O N Performing Organization Address [facility] Phon e Number [facility]- [address] [place] [phone] [place] [address] (ABNORMAL) Comprehensive Metabolic Panel (03/16/2021 4:21 AM MECHANICAL CAR CHECKER) Analysis Performed At Patho logist Time Signature Potassium, P 3.6 3.6 - 5.2 03/16/2021 MKTO mmol/L 4:53 AM MECHANICAL CAR CHECKER Sodium, P 140 135 - 145 03/16/2021 MKTO mmol/L 4:53 AM MECHANICAL CAR CHECKER Chloride, P 109 (H) 98 - 107 03/16/2021 MKTO mmol/L 4:53 AM MECHANICAL CAR CHECKER Bicarbonate, P 20 (L) 22 - 29 03/16/2021 MKTO mmol/L 4:53 AM MECHANICAL CAR CHECKER Anion Gap, P 11 7 - 15 03/16/2021 MKTO 4:53 AM MECHANICAL CAR CHECKER BUN (Blood Urea 5 (L) 6 - 21 03/16/2021 MKTO Nitrogen), P mg/dL 4:53 AM MECHANICAL CAR CHECKER Creatinine 0.40 (L) 0.59 - 03/16/2021 MKTO 1.04 mg/dL 4:53 AM MECHANICAL CAR CHECKER eGFR-Black/Afri >90 >=60 03/16/2021 MKTO can [place] mL/min/BSA 5:29 AM MECHANICAL CAR CHECKER Comment: ----ADDITIONAL INFORMATION---- Estimated GFR calculated using the 2009 CKD_EPI creatinine equation. eGFR Non-Black/ >90 >=60 mL/min/BSA 03/16/2021 5:29 AM MECHANICAL CAR CHECKER MKTO Comment: ----ADDITIONAL INFORMATION---- Estimated GFR calculated using the 2009 CKD_EPI creatinine equation. Calcium, Total, P 8.9 8.6 - 10.0 mg/dL 03/16/2021 4:53 AM MECHANICAL CAR CHECKER MKTO Glucose, P 135 70 - 140 mg/dL 03/16/2021 4:53 AM MECHANICAL CAR CHECKER M KTO Protein, Total, P 5.2 (L) 6.3 - 7.9 g/dL 03/16/2021 4:53 A M MECHANICAL CAR CHECKER MKTO Albumin, P 4.0 3.5 - 5.0 g/dL 03/16/2021 4:53 AM MECHANICAL CAR CHECKER M KTO Aspartate Aminotransferase 33 8 - 43 U/L 03/16/2021 4 :53 AM MECHANICAL CAR CHECKER MKTO (AST), P Alkaline Phosphatase, P 43 35 - 104 U/L 03/16/2021 4: 53 AM MECHANICAL CAR CHECKER MKTO Alanine Aminotransferase 8 7 - 45 U/L 03/16/2021 4:5 3 AM MECHANICAL CAR CHECKER MKTO (ALT), P Bilirubin, Total, P 5.1 (H) <=1.2 mg/dL 03/16/2021 4:53 AM MECHANICAL CAR CHECKER MKTO Specimen Anatomical Collection Method Collection Time Receive d Time (Source) Location / / Volume Laterality Blood (Blood, 03/16/2021 4:21 AM 03/16/20 4:53 Venous) MECHANICAL CAR CHECKER AM MECHANICAL CAR CHECKER Nola Huitron APRN, C.N.P., M.S.N. LAB BLOOD ADD-O N Performing Organization Address [facility] Phon e Number [address] [phone] [place] [address] System in [address] (ABNORMAL) Phosphorus Inorganic (03/16/2021 4:21 AM MECHANICAL CAR CHECKER) P athologist Signature Phosphorus 2.0 (L) 2.5 - 4.5 03/16/2021 MKTO (Inorganic), P mg/dL 4:53 AM MECHANICAL CAR CHECKER Specimen Anatomical Collection Method Collection Time Receive d Time (Source) Location / / Volume Laterality Blood (Blood, 03/16/2021 4:21 AM 03/16/20 4:53 Venous) MECHANICAL CAR CHECKER AM MECHANICAL CAR CHECKER Lowell Thomas APRNNLala., M.S.N. LAB BLOOD ADD-O N Performing Organization Address [facility] Phon e Number [address] [address] [facility] [place] [phone] System in [address] Magnesium (03/16/2021 4:21 AM MECHANICAL CAR CHECKER) P athologist Signature Magnesium, P 1.7 1.7 - 2.3 03/16/2021 MKTO mg/dL 4:53 AM MECHANICAL CAR CHECKER Specimen Anatomical Collection Method Collection Time Receive d Time (Source) Location / / Volume Laterality Blood (Blood, 03/16/2021 4:21 AM 03/16/20 4:53 Venous) MECHANICAL CAR CHECKER AM MECHANICAL CAR CHECKER Katrin Thomas APRN.N.P., M.S.N. 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 BLOOD TRANSFUSI ON ORDERABLES CT Abdomen Pelvis with IV Contrast (03/16/2021 2:36 AM MECHANICAL CAR CHECKER) Anatomical Region Laterality Modality Abdomen, Pelvis, Abdominal RST LOS, Abdominal ARZ LOS, N/A Computed Tomography Abdominal FLA LOS Specimen (Source) Anatomical Collection Method Collection Time Re ceived Time Location / / Volume Laterality 03/16/2021 7:41 AM MECHANICAL CAR CHECKER Impressions 03/16/2021 7:49 AM MECHANICAL CAR CHECKER 1. Newly identified CHF, with associated compressive atelectasis at each lung base. 2. Stable abdominal ascites with no iden tified area of hemorrhage. 3. Newly identified anasarca. 4. Heterogeneous appearance of the liver with splenomegaly, the combination of findings suggestive of hepatic inflammat ion. Clinical correlation is recommended. Narrative 03/16/2021 7:49 AM MECHANICAL CAR CHECKER EXAM: CT ABDOMEN PELVIS WITH IV CONTRAST [...] picious lesion. vRad: ??Findings concordant with prelimi nary vRad report. Procedure Note Migue Andrews M.D. [...] Test, POCT, Urine (lab) (03/16/2021 2:11 AM MECHANICAL CAR CHECKER) athologist [facility] Negative 03/16/2021 MKTO Test, POCT, U 2:19 AM MECHANICAL CAR CHECKER Specimen Anatomical Collection Method Collection Time Receive d Time (Source) Location / / Volume Laterality Urine (Urine, 03/16/2021 2:11 AM 03/16/20 2:11 Clean Catch) MECHANICAL CAR CHECKER AM MECHANICAL CAR CHECKER Tariq CheryB.S. LAB POCT ORDERABLES - DEVICE Performing Organization Address City/[facility] Phon e Number [facility]- [address] [place] [phone] [place] [address] System in [address] (ABNORMAL) Fibrinogen (03/16/2021 1:11 AM MECHANICAL CAR CHECKER) athologist [facility] Fibrinogen, P 57 (CL) 200 - 393 03/16/2021 MKTO mg/dL 1:46 AM MECHANICAL CAR CHECKER Specimen Anatomical Collection Method Collection Time Receive d Time (Source) Location / / Volume Laterality Blood (Blood, 03/16/2021 1:11 AM 03/16/20 1:15 Venous) MECHANICAL CAR CHECKER AM MECHANICAL CAR CHECKER Tariq Novak.B.S. LAB BLOOD ADD-ON Performing Organization Address City/[facility]/ZIP [facility] Phon e Number [facility]- [address] [place] [phone] [place] [address] (ABNORMAL) APTT (Activated Partial Thromboplastin Time) (03/16/2021 1:11 AM MECHANICAL CAR CHECKER) athologist [facility] Activated 61 (H) 25 - 37 03/16/2021 MKTO Partial sec 1:29 AM MECHANICAL CAR CHECKER Thrombopl Time, P Specimen Anatomical Collection Method Collection Time Receive d Time (Source) Location / / Volume Laterality Blood (Blood, 03/16/2021 1:11 AM 03/16/20 1:15 Venous) MECHANICAL CAR CHECKER AM MECHANICAL CAR CHECKER Tariq DanielSSmua LAB BLOOD ADD-ON Performing Organization Address City/[facility]/ZIP Code Phon e Number [facility]- [facility] [place] [address] [place] [address] System in [place] [address] [facility] (ABNORMAL) Prothrombin Time (PT) (03/16/2021 1:11 AM MECHANICAL CAR CHECKER) Patholo gist Method Time Signature Prothrombin 26.9 (H) 9.4 - 12.5 03/16/2021 MKTO Time, P sec 1:45 AM MECHANICAL CAR CHECKER INR 2.4 0.9 - 1.1 03/16/2021 MKTO 1:45 AM MECHANICAL CAR CHECKER Comment: ----ADDITIONAL INFORMATION---- Standard intensity warfarin therapeutic range: 2.0 to 3.0 ?? High intensity warfarin therapeutic rang e: 2.5 to 3.5 Specimen Anatomical Collection Method Collection Time Receive d Time (Source) Location / / Volume Laterality Blood (Blood, 03/16/2021 1:11 AM 03/16/20 1:15 Venous) MECHANICAL CAR CHECKER AM MECHANICAL CAR CHECKER Tariq DanielSSuma LAB BLOOD ADD-ON Performing Organization Address City/State/ZIP Code Phon e Number [facility]- [address] [place] [address] [place] [address] System in [place] [address] [place] [address] Potassium (03/16/2021 12:08 AM MECHANICAL CAR CHECKER) P athologist Signature Potassium, P 3.9 3.6 - 5.2 03/16/2021 MKTO mmol/L 12:33 AM MECHANICAL CAR CHECKER Specimen Anatomical Collection Method Collection Time Receive d Time (Source) Location / / Volume Laterality Blood (Blood, 03/16/2021 12:08 03/16/2021 Venous) AM MECHANICAL CAR CHECKER 12:33 AM MECHANICAL CAR CHECKER Tariq Santillan LAB BLOOD ADD-ON Performing Organization Address City/[facility]/ZIP Code Phon e Number [facility]- [address] [place] [phone] [place] [address] [address] in [address] (ABNORMAL) Hemoglobin (03/16/2021 12:08 AM MECHANICAL CAR CHECKER) P athologist Signature Hemoglobin 7.3 (L) 11.6 - 15.0 03/16/2021 MKTO g/dL 12:26 AM MECHANICAL CAR CHECKER Specimen Anatomical Collection Method Collection Time Receive d Time (Source) Location / / Volume Laterality Blood (Blood, 03/16/2021 12:08 03/16/2021 Venous) AM MECHANICAL CAR CHECKER 12:26 AM MECHANICAL CAR CHECKER Nola Hutiron APRN, C.N.P., M.S.N. LAB BLOOD ADD-O N Performing Organization Address City/[facility]/ZIP Code Phon e Number [facility]- [address] [place] [phone] [place] [address] LAB [place] [phone] System in [address] (ABNORMAL) Glucose, POCT (03/15/2021 11:33 PM MECHANICAL CAR CHECKER) P athologist Signature Glucose, POCT, 160 (H) 70 - 140 03/15/2021 MKTO B mg/dL 11:33 PM MECHANICAL CAR CHECKER Specimen Anatomical Collection Method Collection Time Receive d Time (Source) Location / / Volume Laterality Blood 03/15/2021 11:33 03/16/2021 PM MECHANICAL CAR CHECKER 12:15 AM MECHANICAL CAR CHECKER Generic Rals LAB POCT ORDERABLES-MANUAL Performing Organization Address City/[facility]/ZIP Code Phon e Number [facility]- [address] [place] [phone] [place] [address] Transfuse Red Blood Cells : (03/15/2021 11:07 PM MECHANICAL CAR CHECKER) Lowell Thomas APRNNDayne, M.S.N. BLOOD TRANSFUSI ON ORDERABLES Transfuse Red Blood Cells : , 1 Units (03/15/2021 11:07 PM MECHANICAL CAR CHECKER) Nola Huitron APRN, C.N.P., M.S.N. BLOOD TRANSFUSI ON ORDERABLES (ABNORMAL) Hemoglobin (03/15/2021 8:11 PM MECHANICAL CAR CHECKER) athologist Signature Hemoglobin 6.6 (L) 11.6 - 15.0 03/15/2021 MKTO g/dL 8:27 PM MECHANICAL CAR CHECKER Specimen Anatomical Collection Method Collection Time Receive d Time (Source) Location / / Volume Laterality Blood (Blood, 03/15/2021 8:11 PM 03/15/20 8:23 Venous) MECHANICAL CAR CHECKER PM MECHANICAL CAR CHECKER Nola Huitron APRN, C.N.P., M.S.N. LAB BLOOD ADD-O N Performing Organization Address City/[facility] Phon e Number [phone] [place] [address] Transfuse Fresh Frozen Plasma :Bleeding with altered coagulation; 180 mL/hr (03/15/2021 6:20 PM MECHANICAL CAR CHECKER) Jailene Barnhart RDN, TALI BLOOD TRANSFUSION ORDERABLES (ABNORMAL) Hemoglobin (03/15/2021 4:52 PM MECHANICAL CAR CHECKER) athologist Signature Hemoglobin 7.6 (L) 11.6 - 15.0 03/15/2021 MKTO g/dL 4:57 PM MECHANICAL CAR CHECKER Specimen Anatomical Collection Method Collection Time Receive d Time (Source) Location / / Volume Laterality Blood (Blood, 03/15/2021 4:52 PM 03/15/20 4:55 Venous) MECHANICAL CAR CHECKER PM MECHANICAL CAR CHECKER Liezt Navarro M.D. LAB BLOOD ADD-ON Performing Organization Address City/[facility] Phon e Number [phone] [place] [address] (ABNORMAL) Hematocrit (03/15/2021 4:52 PM MECHANICAL CAR CHECKER) athologist Signature Hematocrit 22.4 (L) 35.5 - 44.9 03/15/2021 MKTO % 4:57 PM MECHANICAL CAR CHECKER Specimen Anatomical Collection Method Collection Time Receive d Time (Source) Location / / Volume Laterality Blood (Blood, 03/15/2021 4:52 PM 03/15/20 4:55 Venous) MECHANICAL CAR CHECKER PM MECHANICAL CAR CHECKER Lizet Navarro M.D. LAB BLOOD ADD-ON Performing Organization Address City/[facility]/ZIP Code Phon e Number [facility]- [address] [place] [phone] [facility] [place] [phone] System [address] Transfuse Fresh Frozen Plasma :Bleeding with altered coagulation; 180 mL/hr (03/15/2021 3:34 PM MECHANICAL CAR CHECKER) Lizet Navarro M.D. BLOOD TRANSFUSION ORDERABLES (ABNORMAL) Phosphorus Inorganic (03/15/2021 2:29 PM MECHANICAL CAR CHECKER) P athologist Signature Phosphorus 2.3 (L) 2.5 - 4.5 03/15/2021 MKTO (Inorganic), P mg/dL 5:27 PM MECHANICAL CAR CHECKER Specimen Anatomical Collection Method Collection Time Receive d Time (Source) Location / / Volume Laterality Blood (Blood, 03/15/2021 2:29 PM 03/15/20 5:12 Venous) MECHANICAL CAR CHECKER PM MECHANICAL CAR CHECKER Lizet Navarro M.D. LAB BLOOD ADD-ON Performing Organization Address City/[facility]/ZIP Code Phon e Number [facility]- [address] [place] [phone] [place] [address] Magnesium (03/15/2021 2:29 PM MECHANICAL CAR CHECKER) P athologist Signature Magnesium, P 1.8 1.7 - 2.3 03/15/2021 MKTO mg/dL 5:27 PM MECHANICAL CAR CHECKER Specimen Anatomical Collection Method Collection Time Receive d Time (Source) Location / / Volume Laterality Blood (Blood, 03/15/2021 2:29 PM 03/15/20 5:12 Venous) MECHANICAL CAR CHECKER PM MECHANICAL CAR CHECKER Lizet Navarro M.D. LAB BLOOD ADD-ON Performing Organization Address City/[facility]/ZIP Code Phon e Number [facility]- [address] [place] [phone] [place] [address] System in [address] (ABNORMAL) Hemoglobin (03/15/2021 2:29 PM MECHANICAL CAR CHECKER) P athologist Signature Hemoglobin 7.9 (L) 11.6 - 15.0 03/15/2021 MKTO g/dL 2:50 PM MECHANICAL CAR CHECKER Specimen Anatomical Collection Method Collection Time Receive d Time (Source) Location / / Volume Laterality Blood (Blood, 03/15/2021 2:29 PM 03/15/20 2:43 Venous) MECHANICAL CAR CHECKER PM MECHANICAL CAR CHECKER Lizet Navarro M.D. LAB BLOOD ADD-ON Performing Organization Address City/[facility]/ZIP Code Phon e Number [facility]- [address] [place] [phone] [place] [address] System in [address] (ABNORMAL) Hematocrit (03/15/2021 2:29 PM MECHANICAL CAR CHECKER) athologist Signature Hematocrit 23.3 (L) 35.5 - 44.9 03/15/2021 MKTO % 2:50 PM MECHANICAL CAR CHECKER Specimen Anatomical Collection Method Collection Time Receive d Time (Source) Location / / Volume Laterality Blood (Blood, 03/15/2021 2:29 PM 03/15/20 2:43 Venous) MECHANICAL CAR CHECKER PM MECHANICAL CAR CHECKER Lizet Navarro M.D. LAB BLOOD ADD-ON Performing Organization Address City/State/ZIP Code Phon e Number [facility]- [address] [place] [phone] [place] [address] (ABNORMAL) Basic Metabolic Panel (03/15/2021 2:29 PM MECHANICAL CAR CHECKER) Analysis Performed At Patho logist Time Signature Potassium, P 3.2 (L) 3.6 - 5.2 03/15/2021 MKTO mmol/L 3:18 PM MECHANICAL CAR CHECKER Sodium, P 138 135 - 145 03/15/2021 MKTO mmol/L 3:18 PM MECHANICAL CAR CHECKER Chloride, P 105 98 - 107 03/15/2021 MKTO mmol/L 3:18 PM MECHANICAL CAR CHECKER Bicarbonate, P 19 (L) 22 - 29 03/15/2021 MKTO mmol/L 3:18 PM MECHANICAL CAR CHECKER Anion Gap, P 14 7 - 15 03/15/2021 MKTO 3:18 PM MECHANICAL CAR CHECKER BUN (Blood Urea 8 6 - 21 03/15/2021 MKTO Nitrogen), P mg/dL 3:18 PM MECHANICAL CAR CHECKER Creatinine 0.49 (L) 0.59 - 03/15/2021 MKTO 1.04 mg/dL 3:18 PM MECHANICAL CAR CHECKER eGFR-Black/Afri >90 >=60 03/15/2021 MKTO can Ugandan mL/min/BSA 3:18 PM MECHANICAL CAR CHECKER Comment: ----ADDITIONAL INFORMATION---- Estimated GFR calculated using the 2009 CKD_EPI creatinine equation. eGFR Non-Black/ >90 >=60 mL/min/BSA 03/15/2021 3:18 PM MECHANICAL CAR CHECKER MKTO Comment: ----ADDITIONAL INFORMATION---- Estimated GFR calculated using the 2009 CKD_EPI creatinine equation. Calcium, Total, P 9.0 8.6 - 10.0 mg/dL 03/15/2021 3:18 PM MECHANICAL CAR CHECKER MKTO Glucose, P 125 70 - 140 mg/dL 03/15/2021 3:18 PM MECHANICAL CAR CHECKER M KTO Specimen Anatomical Collection Method Collection Time Receive d Time (Source) Location / / Volume Laterality Blood (Blood, 03/15/2021 2:29 PM 03/15/20 2:43 Venous) MECHANICAL CAR CHECKER PM MECHANICAL CAR CHECKER Lizet Navarro M.D. LAB BLOOD ADD-ON Performing Organization Address City/State/ZIP Code Phon e Number [facility]- [address] [place] [address] [place] [address] System in [address] Transfuse Red Blood Cells : (03/15/2021 1:16 PM MECHANICAL CAR CHECKER) Josep Jennings M.D. BLOOD TRANSFUSION ORDERABLES Transfuse Red Blood Cells : , 1 Units (03/15/2021 1:16 PM MECHANICAL CAR CHECKER) Josep Jennings M.D. BLOOD TRANSFUSION ORDERABLES Glucose, POCT (03/15/2021 11:57 AM MECHANICAL CAR CHECKER) P athologist Signature Glucose, POCT, 119 70 - 140 03/15/2021 MKTO B mg/dL 11:57 AM MECHANICAL CAR CHECKER Specimen Anatomical Collection Method Collection Time Receive d Time (Source) Location / / Volume Laterality Blood 03/15/2021 11:57 03/15/2021 AM MECHANICAL CAR CHECKER 12:08 PM MECHANICAL CAR CHECKER Generic Rals LAB POCT ORDERABLES-MANUAL Performing Organization Address City/[facility] Phon e Number [address] [phone] [place] [address] System in [address] Glucose, POCT (03/15/2021 6:14 AM MECHANICAL CAR CHECKER) P athologist Signature Glucose, POCT, 116 70 - 140 03/15/2021 MKTO B mg/dL 6:14 AM MECHANICAL CAR CHECKER Specimen Anatomical Collection Method Collection Time Receive d Time (Source) Location / / Volume Laterality Blood 03/15/2021 6:14 AM MECHANICAL CAR CHECKER 10:34 AM MECHANICAL CAR CHECKER Generic Rals LAB POCT ORDERABLES-MANUAL Performing Organization Address City/[facility] Phon e Number [facility]- [address] [place] [phone] [place] [address] System in [address] Magnesium (03/15/2021 4:18 AM MECHANICAL CAR CHECKER) P athologist Signature Magnesium, P 1.7 1.7 - 2.3 03/15/2021 MKTO mg/dL 5:00 AM MECHANICAL CAR CHECKER Specimen Anatomical Collection Method Collection Time Receive d Time (Source) Location / / Volume Laterality Blood (Blood, 03/15/2021 4:18 AM 03/15/20 4:35 Venous) MECHANICAL CAR CHECKER AM MECHANICAL CAR CHECKER Nola Huitron APRN C.N.P., M.S.N. LAB BLOOD ADD-O N Performing Organization Address City/[facility]/ZIP Code Phon e Number [address] [phone] [place] [address] System in [address] (ABNORMAL) Phosphorus Inorganic (03/15/2021 4:18 AM MECHANICAL CAR CHECKER) P athologist Signature Phosphorus 2.1 (L) 2.5 - 4.5 03/15/2021 MKTO (Inorganic), P mg/dL 5:00 AM MECHANICAL CAR CHECKER Specimen Anatomical Collection Method Collection Time Receive d Time (Source) Location / / Volume Laterality Blood (Blood, 03/15/2021 4:18 AM 03/15/20 4:35 Venous) MECHANICAL CAR CHECKER AM MECHANICAL CAR CHECKER Nola Huitron APRN, C.N.P., M.S.N. LAB BLOOD ADD-O N Performing Organization Address [facility] Phon e Number [facility]- [address] [place] [phone] [facility] [place] [phone] (ABNORMAL) Prothrombin Time (PT) (03/15/2021 4:18 AM MECHANICAL CAR CHECKER) Patholo gist Method Time Signature Prothrombin 26.3 (H) 9.4 - 12.5 03/15/2021 MKTO Time, P sec 4:58 AM MECHANICAL CAR CHECKER INR 2.3 0.9 - 1.1 03/15/2021 MKTO 4:58 AM MECHANICAL CAR CHECKER Comment: ----ADDITIONAL INFORMATION---- Standard intensity warfarin therapeutic range: 2.0 to 3.0 ?? High intensity warfarin therapeutic rang e: 2.5 to 3.5 Specimen Anatomical Collection Method Collection Time Receive d Time (Source) Location / / Volume Laterality Blood (Blood, 03/15/2021 4:18 AM 03/15/20 4:35 Venous) MECHANICAL CAR CHECKER AM MECHANICAL CAR CHECKER Katrin Thomas APRN.N.Shanita., M.S.N. LAB BLOOD ADD-O N Performing Organization Address [facility] Phon e Number [facility]- [address] [place] [phone] [place] [address] (ABNORMAL) Comprehensive Metabolic Panel (03/15/2021 4:18 AM MECHANICAL CAR CHECKER) Analysis Performed At Patho logist Time Signature Potassium, P 2.7 (L) 3.6 - 5.2 03/15/2021 MKTO mmol/L 5:00 AM MECHANICAL CAR CHECKER Sodium, P 140 135 - 145 03/15/2021 MKTO mmol/L 5:00 AM MECHANICAL CAR CHECKER Chloride, P 107 98 - 107 03/15/2021 MKTO mmol/L 5:00 AM MECHANICAL CAR CHECKER Bicarbonate, P 20 (L) 22 - 29 03/15/2021 MKTO mmol/L 5:00 AM MECHANICAL CAR CHECKER Anion Gap, P 13 7 - 15 03/15/2021 MKTO 5:00 AM MECHANICAL CAR CHECKER BUN (Blood Urea 11 6 - 21 03/15/2021 MKTO Nitrogen), P mg/dL 5:00 AM MECHANICAL CAR CHECKER Creatinine 0.55 (L) 0.59 - 03/15/2021 MKTO 1.04 mg/dL 5:00 AM MECHANICAL CAR CHECKER eGFR-Black/Afri >90 >=60 03/15/2021 MKTO can [place] mL/min/BSA 5:00 AM MECHANICAL CAR CHECKER Comment: ----ADDITIONAL INFORMATION---- Estimated GFR calculated using the 2009 CKD_EPI creatinine equation. eGFR Non-Black/ >90 >=60 mL/min/BSA 03/15/2021 5:00 AM MECHANICAL CAR CHECKER MKTO Comment: ----ADDITIONAL INFORMATION---- Estimated GFR calculated using the 2009 CKD_EPI creatinine equation. Calcium, Total, P 9.1 8.6 - 10.0 mg/dL 03/15/2021 5:00 AM MECHANICAL CAR CHECKER MKTO Glucose, P 127 70 - 140 mg/dL 03/15/2021 5:00 AM MECHANICAL CAR CHECKER M KTO Protein, Total, P 5.7 (L) 6.3 - 7.9 g/dL 03/15/2021 5:00 A M MECHANICAL CAR CHECKER MKTO Albumin, P 4.3 3.5 - 5.0 g/dL 03/15/2021 5:00 AM MECHANICAL CAR CHECKER M KTO Aspartate Aminotransferase 38 8 - 43 U/L 03/15/2021 5 :00 AM MECHANICAL CAR CHECKER MKTO (AST), P Alkaline Phosphatase, P 50 35 - 104 U/L 03/15/2021 5: 00 AM MECHANICAL CAR CHECKER MKTO Alanine Aminotransferase 9 7 - 45 U/L 03/15/2021 5:0 0 AM MECHANICAL CAR CHECKER MKTO (ALT), P Bilirubin, Total, P 5.6 (H) <=1.2 mg/dL 03/15/2021 5:00 AM MECHANICAL CAR CHECKER MKTO Specimen Anatomical Collection Method Collection Time Receive d Time (Source) Location / / Volume Laterality Blood (Blood, 03/15/2021 4:18 AM 03/15/20 4:35 Venous) MECHANICAL CAR CHECKER AM MECHANICAL CAR CHECKER Nola Huitron APRN, C.N.P., M.S.N. LAB BLOOD ADD-O N Performing Organization Address [facility] Phon e Number [address] [phone] [place] [address] (ABNORMAL) CBC without Differential (03/15/2021 4:18 AM MECHANICAL CAR CHECKER) [facility] Method Time Signature Hemoglobin 6.9 (L) 11.6 - 03/15/2021 MKTO 15.0 g/dL 5:00 AM MECHANICAL CAR CHECKER Hematocrit 20.5 (L) 35.5 - 03/15/2021 MKTO 44.9 % 5:00 AM MECHANICAL CAR CHECKER Erythrocytes 2.11 (L) 3.92 - 03/15/2021 MKTO 5.13 5:00 AM MECHANICAL CAR CHECKER x10(12)/L MCV 97.2 78.2 - 03/15/2021 MKTO 97.9 fL 5:00 AM MECHANICAL CAR CHECKER RBC Distrib Width 22.5 (H) 12.2 - 03/15/2021 MKTO 16.1 % 5:00 AM MECHANICAL CAR CHECKER Platelet Count 86 (L) 157 - 371 03/15/2021 MKTO x10(9)/L 5:00 AM MECHANICAL CAR CHECKER Leukocytes 6.3 3.4 - 9.6 03/15/2021 MKTO x10(9)/L 5:00 AM MECHANICAL CAR CHECKER Specimen Anatomical Collection Method Collection Time Receive d Time (Source) Location / / Volume Laterality Blood (Blood, 03/15/2021 4:18 AM 03/15/20 4:35 Venous) MECHANICAL CAR CHECKER AM MECHANICAL CAR CHECKER Nola Huitron APRN, C.N.P., M.S.N. LAB BLOOD ADD-O N Performing Organization Address [facility] Phon e Number [facility]- [address] [place] [phone] [place] [address] Glucose, POCT (03/14/2021 11:43 PM MECHANICAL CAR CHECKER) P athologist Signature Glucose, POCT, 122 70 - 140 03/14/2021 MKTO B mg/dL 11:43 PM MECHANICAL CAR CHECKER Specimen Anatomical Collection Method Collection Time Receive d Time (Source) Location / / Volume Laterality Blood 03/14/2021 11:43 03/15/2021 PM MECHANICAL CAR CHECKER 12:29 AM MECHANICAL CAR CHECKER Generic Rals LAB POCT ORDERABLES-MANUAL Performing Organization Address City/State/ZIP [facility] Phon e Number [facility]- [address] [place] [phone] [place] [address] System in [address] Glucose, POCT (03/14/2021 6:25 PM MECHANICAL CAR CHECKER) P athologist Signature Glucose, POCT, 140 70 - 140 03/14/2021 MKTO B mg/dL 6:25 PM MECHANICAL CAR CHECKER Specimen Anatomical Collection Method Collection Time Receive d Time (Source) Location / / Volume Laterality Blood 03/14/2021 6:25 PM 7:32 MECHANICAL CAR CHECKER PM MECHANICAL CAR CHECKER Generic Rals LAB POCT ORDERABLES-MANUAL Performing Organization Address City/[facility] Phon e Number [address] [phone] [facility] [place] [address] System in [address] Glucose, POCT (03/14/2021 11:32 AM MECHANICAL CAR CHECKER) P athologist Signature Glucose, POCT, 120 70 - 140 03/14/2021 MKTO B mg/dL 11:32 AM MECHANICAL CAR CHECKER Specimen Anatomical Collection Method Collection Time Receive d Time (Source) Location / / Volume Laterality Blood 03/14/2021 11:32 03/14/2021 2:20 AM MECHANICAL CAR CHECKER PM MECHANICAL CAR CHECKER Generic Rals LAB POCT ORDERABLES-MANUAL Performing Organization Address City/State/ZIP [facility] Phon e Number [address] [phone] [facility] [place] [address] System in [address] Patient Status (03/14/2021 11:00 AM MECHANICAL CAR CHECKER) P athologist Signature FIO2 0.30 0.21=AIR 03/14/2021 11:19 MKTO AM MECHANICAL CAR CHECKER Specimen Anatomical Collection Method Collection Time Receive d Time (Source) Location / / Volume Laterality Blood 03/14/2021 11:00 03/14/2021 AM MECHANICAL CAR CHECKER 11:14 AM MECHANICAL CAR CHECKER Lizet Navarro M.D. LAB BLOOD NON ADD-ON Performing Organization Address City/State/ZIP Code Phon e Number [facility]- [address] [place] [phone] [place] [address] [place] [address] System in [address] (ABNORMAL) Blood Gas with Coox, Arterial (03/14/2021 11:00 AM MECHANICAL CAR CHECKER) Patholo gist Method Time Signature P O2 120 (H) 83 - 108 03/14/2021 MKTO mm Hg 11:19 AM MECHANICAL CAR CHECKER P CO2 33 32 - 45 03/14/2021 MKTO mm Hg 11:19 AM MECHANICAL CAR CHECKER pH 7.42 7.35 - 03/14/2021 MKTO 7.45 pH 11:19 AM MECHANICAL CAR CHECKER Base Excess -3 (L) -2 - 3 03/14/2021 MKTO mmol/L 11:19 AM MECHANICAL CAR CHECKER HCO3 21 (L) 22 - 26 03/14/2021 MKTO mmol/L 11:19 AM MECHANICAL CAR CHECKER Hemoglobin, B 7.8 (L) 11.6 - 03/14/2021 MKTO 15.0 g/dL 11:19 AM MECHANICAL CAR CHECKER O2Hb 96.7 94.0 - 03/14/2021 MKTO 98.0 % 11:19 AM MECHANICAL CAR CHECKER COHb 1.4 <3.0 % 03/14/2021 MKTO 11:19 AM MECHANICAL CAR CHECKER MetHb 0.7 <1.5 % 03/14/2021 MKTO 11:19 AM MECHANICAL CAR CHECKER CtO2 10.8 (L) 18.0 - 03/14/2021 MKTO 21.0 vol 11:19 AM MECHANICAL CAR CHECKER % Arterial Arterial 03/14/2021 MKTO Sample Site Line 11:19 AM MECHANICAL CAR CHECKER Specimen Anatomical Collection Method Collection Time Receive d Time (Source) Location / / Volume Laterality Blood (Blood, 03/14/2021 11:00 03/14/2021 Arterial) AM MECHANICAL CAR CHECKER 11:14 AM MECHANICAL CAR CHECKER Lizet Navarro M.D. LAB BLOOD NON ADD-ON Performing Organization Address City/[facility]/ZIP Code Phon e Number [facility]- [address] [place] [phone] [place] [address] System in [place] [address] [place] [address] (ABNORMAL) Prothrombin Time (PT) (03/14/2021 9:22 AM MECHANICAL CAR CHECKER) Patholo gist Method Time Signature Prothrombin 28.5 (H) 9.4 - 12.5 03/14/2021 MKTO Time, P sec 10:13 AM MECHANICAL CAR CHECKER INR 2.5 0.9 - 1.1 03/14/2021 MKTO 10:13 AM MECHANICAL CAR CHECKER Comment: ----ADDITIONAL INFORMATION---- Standard intensity warfarin therapeutic range: 2.0 to 3.0 ?? High intensity warfarin therapeutic rang e: 2.5 to 3.5 Specimen Anatomical Collection Method Collection Time Receive d Time (Source) Location / / Volume Laterality Blood (Blood, 03/14/2021 9:22 AM 03/14/20 9:26 Venous) MECHANICAL CAR CHECKER AM MECHANICAL CAR CHECKER Kerry Naranjo APRN, M.S.N., R.N. LAB BLOOD ADD-ON Performing Organization Address City/[facility]/ZIP Code Phon e Number [facility]- [address] [place] [phone] [place] [address] System in [address] Glucose, POCT (03/14/2021 6:28 AM MECHANICAL CAR CHECKER) P athologist Signature Glucose, POCT, 109 70 - 140 03/14/2021 MKTO B mg/dL 6:28 AM MECHANICAL CAR CHECKER Specimen Anatomical Collection Method Collection Time Receive d Time (Source) Location / / Volume Laterality Blood 03/14/2021 6:28 AM 6:51 MECHANICAL CAR CHECKER AM MECHANICAL CAR CHECKER Generic Rals LAB POCT ORDERABLES-MANUAL Performing Organization Address [facility]/ZIP [facility] Phon e Number [facility]- [address] [place] [phone] [place] [address] (ABNORMAL) pH (03/14/2021 5:41 AM MECHANICAL CAR CHECKER) P athologist Signature pH 7.48 (H) 7.35 - 7.45 03/14/2021 MKTO pH 5:51 AM MECHANICAL CAR CHECKER Specimen Anatomical Collection Method Collection Time Receive d Time (Source) Location / / Volume Laterality Blood 03/14/2021 5:41 AM 1 5:48 MECHANICAL CAR CHECKER AM MECHANICAL CAR CHECKER Lowell Thomas APRNN.Shanita., M.S.N. LAB HISTORICAL ORDERS Performing Organization Address [facility] Phon e Number [address] [phone] [place] [address] (ABNORMAL) Calcium, Ionized (03/14/2021 5:41 AM MECHANICAL CAR CHECKER) athologist Signature Calcium, 4.61 (L) 4.65 - 03/14/2021 MKTO Ionized, B 5.30 mg/dL 5:51 AM MECHANICAL CAR CHECKER Specimen Anatomical Collection Method Collection Time Receive d Time (Source) Location / / Volume Laterality Blood 03/14/2021 5:41 AM 1 5:48 MECHANICAL CAR CHECKER AM MECHANICAL CAR CHECKER Katrin Thomas APRN.N.P., M.S.N. LAB BLOOD NON A DD-ON Performing Organization Address City/[facility] Phon e Number [address] [address] [place] [address] Patient Status (03/14/2021 5:41 AM MECHANICAL CAR CHECKER) P athologist Signature FIO2 0.30 0.21=AIR 03/14/2021 5:51 MKTO AM MECHANICAL CAR CHECKER Specimen Anatomical Collection Method Collection Time Receive d Time (Source) Location / / Volume Laterality Blood 03/14/2021 5:41 AM 1 5:48 MECHANICAL CAR CHECKER AM MECHANICAL CAR CHECKER Katrin Thomas APRN.N.P., M.S.N. LAB BLOOD NON A DD-ON Performing Organization Address [facility] Phon e Number [facility]- [address] [place] [phone] [place] [address] Phosphorus Inorganic (03/14/2021 5:41 AM MECHANICAL CAR CHECKER) P athologist Signature Phosphorus 2.8 2.5 - 4.5 03/14/2021 MKTO (Inorganic), P mg/dL 6:11 AM MECHANICAL CAR CHECKER Specimen Anatomical Collection Method Collection Time Receive d Time (Source) Location / / Volume Laterality Blood (Blood, 03/14/2021 5:41 AM 03/14/20 5:48 Venous) MECHANICAL CAR CHECKER AM MECHANICAL CAR CHECKER Nola Huitron APRN, C.N.P., M.S.N. LAB BLOOD ADD-O N Performing Organization Address [facility] Phon e Number [facility]- [address] [place] [phone] [place] [address] Magnesium (03/14/2021 5:41 AM MECHANICAL CAR CHECKER) P athologist Signature Magnesium, P 2.3 1.7 - 2.3 03/14/2021 MKTO mg/dL 6:11 AM MECHANICAL CAR CHECKER Specimen Anatomical Collection Method Collection Time Receive d Time (Source) Location / / Volume Laterality Blood (Blood, 03/14/2021 5:41 AM 03/14/20 5:48 Venous) MECHANICAL CAR CHECKER AM MECHANICAL CAR CHECKER Lowell Thomas APRNNLala., M.S.N. LAB BLOOD ADD-O N Performing Organization Address [facility] Phon e Number [facility]- [address] [place] [phone] [place] [address] (ABNORMAL) Blood Gas with Coox, Arterial (03/14/2021 5:41 AM MECHANICAL CAR CHECKER) P athologist Signature P O2 146 (H) 83 - 108 03/14/2021 MKTO mm Hg 5:51 AM MECHANICAL CAR CHECKER P CO2 32 32 - 45 mm 03/14/2021 MKTO Hg 5:51 AM MECHANICAL CAR CHECKER pH 7.43 7.35 - 03/14/2021 MKTO 7.45 pH 5:51 AM MECHANICAL CAR CHECKER Base Excess -2 -2 - 3 03/14/2021 MKTO mmol/L 5:51 AM MECHANICAL CAR CHECKER HCO3 21 (L) 22 - 26 03/14/2021 MKTO mmol/L 5:51 AM MECHANICAL CAR CHECKER Hemoglobin, B 8.0 (L) 11.6 - 03/14/2021 MKTO 15.0 g/dL 5:51 AM MECHANICAL CAR CHECKER O2Hb 97.5 94.0 - 03/14/2021 MKTO 98.0 % 5:51 AM MECHANICAL CAR CHECKER COHb 1.7 <3.0 % 03/14/2021 MKTO 5:51 AM MECHANICAL CAR CHECKER MetHb 0.1 <1.5 % 03/14/2021 MKTO 5:51 AM MECHANICAL CAR CHECKER CtO2 11.3 (L) 18.0 - 03/14/2021 MKTO 21.0 vol % 5:51 AM MECHANICAL CAR CHECKER Arterial Art Line 03/14/2021 MKTO Sample Site 5:51 AM MECHANICAL CAR CHECKER Specimen Anatomical Collection Method Collection Time Receive d Time (Source) Location / / Volume Laterality Blood (Blood, 03/14/2021 5:41 AM 03/14/20 5:48 Arterial) MECHANICAL CAR CHECKER AM MECHANICAL CAR CHECKER Nola Huitron APRN C.N.P., M.S.N. LAB BLOOD NON A DD-ON Performing Organization Address City/State/ZIP Code Phon e Number [facility]- [address] [place] [phone] [place] [address] System [address] (ABNORMAL) Basic Metabolic Panel (03/14/2021 5:41 AM MECHANICAL CAR CHECKER) P athologist Signature Potassium, P 3.2 (L) 3.6 - 5.2 03/14/2021 MKTO mmol/L 6:11 AM MECHANICAL CAR CHECKER Sodium, P 135 135 - 145 03/14/2021 MKTO mmol/L 6:11 AM MECHANICAL CAR CHECKER Chloride, P 103 98 - 107 03/14/2021 MKTO mmol/L 6:11 AM MECHANICAL CAR CHECKER Bicarbonate, P 19 (L) 22 - 29 03/14/2021 MKTO mmol/L 6:11 AM MECHANICAL CAR CHECKER Anion Gap, P 13 7 - 15 03/14/2021 MKTO 6:11 AM MECHANICAL CAR CHECKER BUN (Blood Urea 11 6 - 21 03/14/2021 MKTO Nitrogen), P mg/dL 6:11 AM MECHANICAL CAR CHECKER Creatinine 0.60 0.59 - 03/14/2021 MKTO 1.04 mg/dL 6:11 AM MECHANICAL CAR CHECKER eGFR-Black/Afri >90 >=60 03/14/2021 MKTO can [place]andan mL/min/BSA 6:11 AM MECHANICAL CAR CHECKER Comment: ----ADDITIONAL INFORMATION---- Estimated GFR calculated using the 2009 CKD_EPI creatinine equation. eGFR Non-Black/ >90 >=60 mL/min/BSA 03/14/2021 6:11 AM MECHANICAL CAR CHECKER MKTO Comment: ----ADDITIONAL INFORMATION---- Estimated GFR calculated using the 2009 CKD_EPI creatinine equation. Calcium, Total, P 8.9 8.6 - 10.0 mg/dL 03/14/2021 6:11 AM MECHANICAL CAR CHECKER MKTO Glucose, P 124 70 - 140 mg/dL 03/14/2021 6:11 AM MECHANICAL CAR CHECKER M KTO Specimen Anatomical Collection Method Collection Time Receive d Time (Source) Location / / Volume Laterality Blood (Blood, 03/14/2021 5:41 AM 03/14/20 5:48 Venous) MECHANICAL CAR CHECKER AM MECHANICAL CAR CHECKER Noal Huitron APRN C.N.P., M.S.N. LAB BLOOD ADD-O N Performing Organization Address City/State/ZIP Code Phon e Number [facility]- [address] [place] [phone] [facility] [place] [address] System in [address] (ABNORMAL) CBC without Differential (03/14/2021 5:41 AM MECHANICAL CAR CHECKER) [facility] Method Time Signature Hemoglobin 7.9 (L) 11.6 - 03/14/2021 MKTO 15.0 g/dL 6:11 AM MECHANICAL CAR CHECKER Hematocrit 23.2 (L) 35.5 - 03/14/2021 MKTO 44.9 % 6:11 AM MECHANICAL CAR CHECKER Erythrocytes 2.40 (L) 3.92 - 03/14/2021 MKTO 5.13 6:11 AM MECHANICAL CAR CHECKER x10(12)/L MCV 96.7 78.2 - 03/14/2021 MKTO 97.9 fL 6:11 AM MECHANICAL CAR CHECKER RBC Distrib Width 22.8 (H) 12.2 - 03/14/2021 MKTO 16.1 % 6:11 AM MECHANICAL CAR CHECKER Platelet Count 90 (L) 157 - 371 03/14/2021 MKTO x10(9)/L 6:11 AM MECHANICAL CAR CHECKER Leukocytes 6.6 3.4 - 9.6 03/14/2021 MKTO x10(9)/L 6:11 AM MECHANICAL CAR CHECKER Specimen Anatomical Collection Method Collection Time Receive d Time (Source) Location / / Volume Laterality Blood (Blood, 03/14/2021 5:41 AM 03/14/20 5:48 Venous) MECHANICAL CAR CHECKER AM MECHANICAL CAR CHECKER Nola Huitron APRN, C.N.P., M.S.N. LAB BLOOD ADD-O N Performing Organization Address City/State/ZIP Code Phon e Number [facility]- [address] [place] [address] [place] [address] System in [address] (ABNORMAL) Hepatic Function Panel (03/14/2021 5:40 AM MECHANICAL CAR CHECKER) [facility] Method Time Signature Bilirubin, Total, P 6.0 (H) <=1.2 03/14/2021 MKTO mg/dL 10:49 AM MECHANICAL CAR CHECKER Bilirubin, Direct, P 2.5 (H) 0.0 - 0.3 03/14/2021 MKTO mg/dL 10:49 AM MECHANICAL CAR CHECKER Aspartate 48 (H) 8 - 43 03/14/2021 MKTO Aminotransferase U/L 10:49 AM MECHANICAL CAR CHECKER (AST), P Alanine 10 7 - 45 03/14/2021 MKTO Aminotransferase U/L 10:49 AM MECHANICAL CAR CHECKER (ALT), P Alkaline 64 35 - 104 03/14/2021 MKTO Phosphatase, P U/L 10:49 AM MECHANICAL CAR CHECKER Albumin, P 4.3 3.5 - 5.0 03/14/2021 MKTO g/dL 10:49 AM MECHANICAL CAR CHECKER Protein, Total, P 5.7 (L) 6.3 - 7.9 03/14/2021 MKTO g/dL 10:49 AM MECHANICAL CAR CHECKER Specimen Anatomical Collection Method Collection Time Receive d Time (Source) Location / / Volume Laterality Blood (Blood, 03/14/2021 5:40 AM 03/14/20 21 Venous) MECHANICAL CAR CHECKER 10:24 AM MECHANICAL CAR CHECKER Leslie Kwong M.D. LAB BLOOD ADD-ON Performing Organization Address City/State/ZIP Code Phon e Number [facility]- [address] [place] [address] [facility] [place] [address] System in [place] [address] [facility] DX Chest Portable 1 View (03/14/2021 4:33 AM MECHANICAL CAR CHECKER) Anatomical Region Laterality Modality Chest, Thoracic RST LOS, Thoracic ARZ LOS, Thoracic N/A Digital Radiography FLA LOS Specimen (Source) Anatomical Collection Method Collection Time Re ceived Time Location / / Volume Laterality 03/14/2021 7:56 AM MECHANICAL CAR CHECKER Impressions 03/14/2021 7:58 AM MECHANICAL CAR CHECKER Persistent areas of bibasilar atelectasis or infiltrate more prominent on the right. Narrative 03/14/2021 7:58 AM MECHANICAL CAR CHECKER EXAM: DX CHEST PORTABLE 1 VIEW COMPARISON: [...] PROCE PERCY Glucose, POCT (03/14/2021 12:06 AM MECHANICAL CAR CHECKER) athologist Signature Glucose, POCT, 116 70 - 140 03/14/2021 MKTO B mg/dL 12:06 AM MECHANICAL CAR CHECKER Specimen Anatomical Collection Method Collection Time Receive d Time (Source) Location / / Volume Laterality Blood 03/14/2021 12:06 03/14/2021 AM MECHANICAL CAR CHECKER 12:23 AM MECHANICAL CAR CHECKER Generic Rals LAB POCT ORDERABLES-MANUAL Performing Organization Address City/State/ZIP Code Phon e Number [facility]- [address] [place] [phone] [place] [address] System in [address] (ABNORMAL) Hemoglobin (03/13/2021 6:29 PM MECHANICAL CAR CHECKER) athologist Signature Hemoglobin 8.0 (L) 11.6 - 15.0 03/13/2021 MKTO g/dL 6:45 PM MECHANICAL CAR CHECKER Specimen Anatomical Collection Method Collection Time Receive d Time (Source) Location / / Volume Laterality Blood (Blood, 03/13/2021 6:29 PM 03/13/20 6:40 Venous) MECHANICAL CAR CHECKER PM MECHANICAL CAR CHECKER Tariq Santillan LAB BLOOD ADD-ON Performing Organization Address City/State/ZIP Code Phon e Number [facility]- [address] [place] [phone] [place] [address] System in [address] Glucose, POCT (03/13/2021 6:16 PM MECHANICAL CAR CHECKER) athologist Signature Glucose, POCT, 112 70 - 140 03/13/2021 MKTO B mg/dL 6:16 PM MECHANICAL CAR CHECKER Specimen Anatomical Collection Method Collection Time Receive d Time (Source) Location / / Volume Laterality Blood 03/13/2021 6:16 PM MECHANICAL CAR CHECKER 11:28 PM MECHANICAL CAR CHECKER Generic Rals LAB POCT ORDERABLES-MANUAL Performing Organization Address City/State/ZIP Code Phon e Number [facility]- [address] [place] [phone] [place] [address] System in [address] (ABNORMAL) Hemoglobin (03/13/2021 4:28 PM MECHANICAL CAR CHECKER) athologist Signature Hemoglobin 8.0 (L) 11.6 - 15.0 03/13/2021 MKTO g/dL 4:39 PM MECHANICAL CAR CHECKER Specimen Anatomical Collection Method Collection Time Receive d Time (Source) Location / / Volume Laterality Blood (Blood, 03/13/2021 4:28 PM 03/13/20 4:35 Arterial) MECHANICAL CAR CHECKER PM MECHANICAL CAR CHECKER Tariq Johnson.B.B.S. LAB BLOOD ADD-ON Performing Organization Address City/State/[facility] Phon e Number [facility]- [address] [place] [phone] [place] [address] Transfuse Red Blood Cells : (03/13/2021 12:13 PM MECHANICAL CAR CHECKER) Tariq Marcano M.B.B.S. BLOOD TRANSFUSION ORDERABLES Transfuse Red Blood Cells : , 1 Units (03/13/2021 12:13 PM MECHANICAL CAR CHECKER) Tariq Marcano M.B.B.S. BLOOD TRANSFUSION ORDERABLES Glucose, POCT (03/13/2021 11:46 AM MECHANICAL CAR CHECKER) athologist [facility] Glucose, POCT, 130 70 - 140 03/13/2021 MKTO B mg/dL 11:46 AM MECHANICAL CAR CHECKER Specimen Anatomical Collection Method Collection Time Receive d Time (Source) Location / / Volume Laterality Blood 03/13/2021 11:46 03/13/2021 AM MECHANICAL CAR CHECKER 11:54 AM MECHANICAL CAR CHECKER Generic Rals LAB POCT ORDERABLES-MANUAL Performing Organization Address [facility] Phon e Number [facility]- [address] [place] [phone] [place] [address] System in [address] (ABNORMAL) Ferritin (03/13/2021 8:28 AM MECHANICAL CAR CHECKER) athologist Signature Ferritin, S 801 (H) 6 - 175 03/13/2021 MKTO mcg/L 10:15 AM MECHANICAL CAR CHECKER Comment: Biotin has been identified by the [...] (Blood, 03/13/2021 8:28 AM 03/13/20 8:32 Venous) MECHANICAL CAR CHECKER AM MECHANICAL CAR CHECKER Tariq Santoyo.S. LAB BLOOD ADD-ON Performing Organization Address [facility] Phon e Number [facility]- [address] [place] [phone] [place] [address] System in [address] (ABNORMAL) Folate (03/13/2021 8:28 AM MECHANICAL CAR CHECKER) P athologist Signature Folate, S 2.8 (L) >=4.0 mcg/L 03/13/2021 MKTO 2:38 PM MECHANICAL CAR CHECKER Comment: Biotin has been identified by the [...] (Blood, 03/13/2021 8:28 AM 03/13/20 8:32 Venous) MECHANICAL CAR CHECKER AM MECHANICAL CAR CHECKER Tariq CheryB.S. LAB BLOOD ADD-ON Performing Organization Address [facility] Phon e Number [facility]- [address] [place] [phone] [place] [address] System in [address] Vitamin B12 Assay (03/13/2021 8:28 AM MECHANICAL CAR CHECKER) P athologist Signature Vitamin B12 690 450 - 1249 03/13/2021 MKTO Assay, S ng/L 4:13 PM MECHANICAL CAR CHECKER Comment: Biotin has been identified by the [facility] as a potential interfering substance. ??Higher concentr ations of biotin may be found in multivitamins, hair/nail supple ments, and workout supplements. ??If the result does not ma [facility] clinical observations, repeat testing after patient refrains fr om the use of supplements for at least 12 hours. Specimen Anatomical Collection Method Collection Time Receive d Time (Source) Location / / Volume Laterality Blood (Blood, 03/13/2021 8:28 AM 03/13/20 8:32 Venous) MECHANICAL CAR CHECKER AM MECHANICAL CAR CHECKER Tariq CheryB.S. LAB BLOOD ADD-ON Performing Organization Address City/[facility] Phon e Number [address] [address] [place] [address] System in [address] (ABNORMAL) Iron and Total Iron-Binding Capacity (03/13/2021 8:28 AM MECHANICAL CAR CHECKER) P athologist Signature Iron 77 35 - 145 03/13/2021 MKTO mcg/dL 10:15 AM MECHANICAL CAR CHECKER Total Iron 68 (L) 250 - 400 03/13/2021 MKTO Binding mcg/dL 10:15 AM MECHANICAL CAR CHECKER Capacity Percent >90 (H) 14 - 50 % 03/13/2021 MKTO Saturation 10:15 AM MECHANICAL CAR CHECKER Specimen Anatomical Collection Method Collection Time Receive d Time (Source) Location / / Volume Laterality Blood (Blood, 03/13/2021 8:28 AM 03/13/20 8:32 Venous) MECHANICAL CAR CHECKER AM MECHANICAL CAR CHECKER Tariq CheryB.S. LAB BLOOD ADD-ON Performing Organization Address City/State/ZIP Code Phon e Number [address] [address] [place] [address] System in [address] Patient Status (03/13/2021 5:37 AM MECHANICAL CAR CHECKER) P athologist Signature FIO2 0.30 0.21=AIR 03/13/2021 5:56 MKTO AM MECHANICAL CAR CHECKER Specimen Anatomical Collection Method Collection Time Receive d Time (Source) Location / / Volume Laterality Blood 03/13/2021 5:37 AM 5:50 MECHANICAL CAR CHECKER AM MECHANICAL CAR CHECKER Ivan Lazo D.O. LAB BLOOD NON ADD-ON Performing Organization Address City/State/ZIP Code Phon e Number [facility]- [address] [place] [phone] [place] [address] System in [address] (ABNORMAL) Blood Gas with Coox, Arterial (03/13/2021 5:37 AM MECHANICAL CAR CHECKER) P athologist Signature P O2 141 (H) 83 - 108 03/13/2021 MKTO mm Hg 5:56 AM MECHANICAL CAR CHECKER P CO2 30 (L) 32 - 45 mm 03/13/2021 MKTO Hg 5:56 AM MECHANICAL CAR CHECKER pH 7.46 (H) 7.35 - 03/13/2021 MKTO 7.45 pH 5:56 AM MECHANICAL CAR CHECKER Base Excess -2 -2 - 3 03/13/2021 MKTO mmol/L 5:56 AM MECHANICAL CAR CHECKER HCO3 21 (L) 22 - 26 03/13/2021 MKTO mmol/L 5:56 AM MECHANICAL CAR CHECKER Hemoglobin, B 7.2 (L) 11.6 - 03/13/2021 MKTO 15.0 g/dL 5:56 AM MECHANICAL CAR CHECKER O2Hb 97.9 94.0 - 03/13/2021 MKTO 98.0 % 5:56 AM MECHANICAL CAR CHECKER COHb 1.5 <3.0 % 03/13/2021 MKTO 5:56 AM MECHANICAL CAR CHECKER MetHb 0.0 <1.5 % 03/13/2021 MKTO 5:56 AM MECHANICAL CAR CHECKER CtO2 10.3 (L) 18.0 - 03/13/2021 MKTO 21.0 vol % 5:56 AM MECHANICAL CAR CHECKER Arterial Art Line 03/13/2021 MKTO Sample Site 5:56 AM MECHANICAL CAR CHECKER Specimen Anatomical Collection Method Collection Time Receive d Time (Source) Location / / Volume Laterality Blood (Blood, 03/13/2021 5:37 AM 03/13/20 5:50 Arterial) MECHANICAL CAR CHECKER AM MECHANICAL CAR CHECKER Ivan Lazo D.O. LAB BLOOD NON ADD-ON Performing Organization Address City/State/ZIP Code Phon e Number [facility]- [address] [place] [phone] [place] [address] System in [address] Phosphorus Inorganic (03/13/2021 5:37 AM MECHANICAL CAR CHECKER) P athologist Signature Phosphorus 3.1 2.5 - 4.5 03/13/2021 MKTO (Inorganic), P mg/dL 6:17 AM MECHANICAL CAR CHECKER Specimen Anatomical Collection Method Collection Time Receive d Time (Source) Location / / Volume Laterality Blood (Blood, 03/13/2021 5:37 AM 03/13/20 5:50 Venous) MECHANICAL CAR CHECKER AM MECHANICAL CAR CHECKER Barrera Vargas M.D. LAB BLOOD ADD-ON Performing Organization Address City/State/[facility] Phon e Number [facility]- [address] [place] [phone] [facility] [place] [address] System in [address] (ABNORMAL) Magnesium (03/13/2021 5:37 AM MECHANICAL CAR CHECKER) P athologist Signature Magnesium, P 2.6 (H) 1.7 - 2.3 03/13/2021 MKTO mg/dL 6:17 AM MECHANICAL CAR CHECKER Specimen Anatomical Collection Method Collection Time Receive d Time (Source) Location / / Volume Laterality Blood (Blood, 03/13/2021 5:37 AM 03/13/20 5:50 Venous) MECHANICAL CAR CHECKER AM MECHANICAL CAR CHECKER Barrera Vargas M.D. LAB BLOOD ADD-ON Performing Organization Address City/State/ZIP Code Phon e Number [facility]- [address] [place] [address] [place] [address] System in [address] Triglycerides (03/13/2021 5:37 AM MECHANICAL CAR CHECKER) P athologist Signature Triglycerides 127 mg/dL 03/13/2021 MKTO 6:17 AM MECHANICAL CAR CHECKER Comment: ----REFERENCE VALUE---- Normal: <150 Borderline high: 150-199 High: 200-499 Very high: > or =500 Specimen Anatomical Collection Method Collection Time Receive d Time (Source) Location / / Volume Laterality Blood (Blood, 03/13/2021 5:37 AM 03/13/20 5:50 Venous) MECHANICAL CAR CHECKER AM MECHANICAL CAR CHECKER Barrera Vargas M.D. LAB BLOOD ADD-ON Performing Organization Address City/State/ZIP Code Phon e Number [facility]- [address] [place] [address] [facility] [address] System in [place] [address] [facility] (ABNORMAL) Comprehensive Metabolic Panel (03/13/2021 5:37 AM MECHANICAL CAR CHECKER) Analysis Performed At Patho logist Time Signature Potassium, P 3.9 3.6 - 5.2 03/13/2021 MKTO mmol/L 6:17 AM MECHANICAL CAR CHECKER Sodium, P 135 135 - 145 03/13/2021 MKTO mmol/L 6:17 AM MECHANICAL CAR CHECKER Chloride, P 103 98 - 107 03/13/2021 MKTO mmol/L 6:17 AM MECHANICAL CAR CHECKER Bicarbonate, P 20 (L) 22 - 29 03/13/2021 MKTO mmol/L 6:17 AM MECHANICAL CAR CHECKER Anion Gap, P 12 7 - 15 03/13/2021 MKTO 6:17 AM MECHANICAL CAR CHECKER BUN (Blood Urea 8 6 - 21 03/13/2021 MKTO Nitrogen), P mg/dL 6:17 AM MECHANICAL CAR CHECKER Creatinine 0.56 (L) 0.59 - 03/13/2021 MKTO 1.04 mg/dL 6:17 AM MECHANICAL CAR CHECKER eGFR-Black/Afri >90 >=60 03/13/2021 MKTO can [place] mL/min/BSA 6:17 AM MECHANICAL CAR CHECKER Comment: ----ADDITIONAL INFORMATION---- Estimated GFR calculated using the 2009 CKD_EPI creatinine equation. eGFR Non-Black/ >90 >=60 mL/min/BSA 03/13/2021 6:17 AM MECHANICAL CAR CHECKER MKTO Comment: ----ADDITIONAL INFORMATION---- Estimated GFR calculated using the 2009 CKD_EPI creatinine equation. Calcium, Total, P 9.0 8.6 - 10.0 mg/dL 03/13/2021 6:17 AM MECHANICAL CAR CHECKER MKTO Glucose, P 115 70 - 140 mg/dL 03/13/2021 6:17 AM MECHANICAL CAR CHECKER M KTO Protein, Total, P 5.7 (L) 6.3 - 7.9 g/dL 03/13/2021 6:17 A M MECHANICAL CAR CHECKER MKTO Albumin, P 3.9 3.5 - 5.0 g/dL 03/13/2021 6:17 AM MECHANICAL CAR CHECKER M KTO Aspartate Aminotransferase 64 (H) 8 - 43 U/L 03/13/2021 6 :17 AM MECHANICAL CAR CHECKER MKTO (AST), P Alkaline Phosphatase, P 90 35 - 104 U/L 03/13/2021 6: 17 AM MECHANICAL CAR CHECKER MKTO Alanine Aminotransferase 14 7 - 45 U/L 03/13/2021 6:1 7 AM MECHANICAL CAR CHECKER MKTO (ALT), P Bilirubin, Total, P 6.1 (H) <=1.2 mg/dL 03/13/2021 6:17 AM MECHANICAL CAR CHECKER MKTO Specimen Anatomical Collection Method Collection Time Receive d Time (Source) Location / / Volume Laterality Blood (Blood, 03/13/2021 5:37 AM 03/13/20 5:50 Venous) MECHANICAL CAR CHECKER AM MECHANICAL CAR CHECKER Barrera Vargas M.D. LAB BLOOD ADD-ON Performing Organization Address City/State/ZIP Code Phon e Number [facility]- [address] [place] [address] [place] [address] System in [address] (ABNORMAL) CBC with Differential, Blood (03/13/2021 5:37 AM MECHANICAL CAR CHECKER) [facility] Method Time Signature Hemoglobin 7.1 (L) 11.6 - 03/13/2021 MKTO 15.0 g/dL 7:27 AM MECHANICAL CAR CHECKER Hematocrit 21.0 (L) 35.5 - 03/13/2021 MKTO 44.9 % 7:27 AM MECHANICAL CAR CHECKER Erythrocytes 2.11 (L) 3.92 - 03/13/2021 MKTO 5.13 7:27 AM MECHANICAL CAR CHECKER x10(12)/L MCV 99.5 (H) 78.2 - 03/13/2021 MKTO 97.9 fL 7:27 AM MECHANICAL CAR CHECKER RBC Distrib Width 20.1 (H) 12.2 - 03/13/2021 MKTO 16.1 % 7:27 AM MECHANICAL CAR CHECKER Platelet Count 101 (L) 157 - 371 03/13/2021 MKTO x10(9)/L 7:27 AM MECHANICAL CAR CHECKER Leukocytes 8.4 3.4 - 9.6 03/13/2021 MKTO x10(9)/L 7:27 AM MECHANICAL CAR CHECKER Neutrophils 6.72 (H) 1.56 - 03/13/2021 MKTO 6.45 7:27 AM MECHANICAL CAR CHECKER x10(9)/L Lymphocytes 0.85 (L) 0.95 - 03/13/2021 MKTO 3.07 7:27 AM MECHANICAL CAR CHECKER x10(9)/L Monocytes 0.86 (H) 0.26 - 03/13/2021 MKTO 0.81 7:27 AM MECHANICAL CAR CHECKER x10(9)/L Eosinophils <0.03 0.03 - 03/13/2021 MKTO 0.48 7:27 AM MECHANICAL CAR CHECKER x10(9)/L Basophils <0.03 0.01 - 03/13/2021 MKTO 0.08 7:27 AM MECHANICAL CAR CHECKER x10(9)/L Specimen Anatomical Collection Method Collection Time Receive d Time (Source) Location / / Volume Laterality Blood (Blood, 03/13/2021 5:37 AM 03/13/20 5:50 Venous) MECHANICAL CAR CHECKER AM MECHANICAL CAR CHECKER Barrera Vargas M.D. LAB BLOOD ADD-ON Performing Organization Address City/[facility] Phon e Number [address] [address] [place] [address] System in [address] (ABNORMAL) Ammonia (03/13/2021 5:37 AM MECHANICAL CAR CHECKER) P athologist Signature Ammonia, P 110 (H) <=51 03/13/2021 MKTO mcmol/L 6:16 AM MECHANICAL CAR CHECKER Specimen Anatomical Collection Method Collection Time Receive d Time (Source) Location / / Volume Laterality Blood (Blood, 03/13/2021 5:37 AM 03/13/20 5:49 Venous) MECHANICAL CAR CHECKER AM MECHANICAL CAR CHECKER Barrera Vargas M.D. LAB BLOOD NON ADD-ON Performing Organization Address City/[facility] Phon e Number [address] [address] [place] [address] System in [address] DX Chest Portable 1 View (03/13/2021 4:32 AM MECHANICAL CAR CHECKER) Anatomical Region Laterality Modality Chest, Thoracic RST LOS, Thoracic ARZ LOS, Thoracic N/A Digital Radiography FLA LOS Specimen (Source) Anatomical Collection Method Collection Time Re ceived Time Location / / Volume Laterality 03/13/2021 8:07 AM MECHANICAL CAR CHECKER Impressions 03/13/2021 8:08 AM MECHANICAL CAR CHECKER Persistent right basilar infiltrate or a telectasis. Narrative 03/13/2021 8:08 AM MECHANICAL CAR CHECKER EXAM: DX CHEST PORTABLE 1 VIEW COMPARISON: [...] (ABNORMAL) Basic Metabolic Panel (03/13/2021 1:20 AM MECHANICAL CAR CHECKER) Analysis Performed At Patho logist Time Signature Potassium, P 2.9 (L) 3.6 - 5.2 03/13/2021 MKTO mmol/L 1:58 AM MECHANICAL CAR CHECKER Sodium, P 134 (L) 135 - 145 03/13/2021 MKTO mmol/L 1:58 AM MECHANICAL CAR CHECKER Chloride, P 99 98 - 107 03/13/2021 MKTO mmol/L 1:58 AM MECHANICAL CAR CHECKER Bicarbonate, P 20 (L) 22 - 29 03/13/2021 MKTO mmol/L 1:58 AM MECHANICAL CAR CHECKER Anion Gap, P 15 7 - 15 03/13/2021 MKTO 1:58 AM MECHANICAL CAR CHECKER BUN (Blood Urea 8 6 - 21 03/13/2021 MKTO Nitrogen), P mg/dL 1:58 AM MECHANICAL CAR CHECKER Creatinine 0.56 (L) 0.59 - 03/13/2021 MKTO 1.04 mg/dL 1:58 AM MECHANICAL CAR CHECKER eGFR-Black/Afri >90 >=60 03/13/2021 MKTO can [place] mL/min/BSA 1:58 AM MECHANICAL CAR CHECKER Comment: ----ADDITIONAL INFORMATION---- Estimated GFR calculated using the 2009 CKD_EPI creatinine equation. eGFR Non-Black/ >90 >=60 mL/min/BSA 03/13/2021 1:58 AM MECHANICAL CAR CHECKER MKTO Comment: ----ADDITIONAL INFORMATION---- Estimated GFR calculated using the 2009 CKD_EPI creatinine equation. Calcium, Total, P 8.9 8.6 - 10.0 mg/dL 03/13/2021 1:58 AM MECHANICAL CAR CHECKER MKTO Glucose, P 120 70 - 140 mg/dL 03/13/2021 1:58 AM MECHANICAL CAR CHECKER M KTO Specimen Anatomical Collection Method Collection Time Receive d Time (Source) Location / / Volume Laterality Blood (Blood, 03/13/2021 1:20 AM 03/13/20 1:23 Venous) MECHANICAL CAR CHECKER AM MECHANICAL CAR CHECKER Ivan Lazo D.O. LAB BLOOD ADD-ON Performing Organization Address City/[facility] Phon e Number [address] [phone] [place] [address] System in [address] (ABNORMAL) Hemoglobin (03/13/2021 12:11 AM MECHANICAL CAR CHECKER) athologist Signature Hemoglobin 7.4 (L) 11.6 - 15.0 03/13/2021 MKTO g/dL 12:18 AM MECHANICAL CAR CHECKER Specimen Anatomical Collection Method Collection Time Receive d Time (Source) Location / / Volume Laterality Blood (Blood, 03/13/2021 12:11 03/13/2021 Venous) AM MECHANICAL CAR CHECKER 12:15 AM MECHANICAL CAR CHECKER Barrera Vargas M.D. LAB BLOOD ADD-ON Performing Organization Address City/[facility] Phon e Number [address] [address] [facility] [place] [address] System in [address] Glucose, POCT (03/12/2021 11:44 PM MECHANICAL CAR CHECKER) P athologist Signature Glucose, POCT, 120 70 - 140 03/12/2021 MKTO B mg/dL 11:44 PM MECHANICAL CAR CHECKER Specimen Anatomical Collection Method Collection Time Receive d Time (Source) Location / / Volume Laterality Blood 03/12/2021 11:44 03/12/2021 PM MECHANICAL CAR CHECKER 11:51 PM MECHANICAL CAR CHECKER Generic Rals LAB POCT ORDERABLES-MANUAL Performing Organization Address City/[facility]/ZIP Code Phon e Number [facility]- [facility] [place] [address] [place] [address] System in [place] [address] [place] [address] Ethyl Glucuronide Screen with Reflex, Urine (03/12/2021 11:12 PM MECHANICAL CAR CHECKER) [facility] gist Method Time Signature Ethyl Negative Cutoff: 03/14/2021 [facility] Glucuronide Scrn 500 ng/mL 9:46 AM MECHANICAL CAR CHECKER w/Reflex, U Comment: ----ADDITIONAL INFORMATION---- This test was developed and its performa nce characteristics determined by [facility] in a manner consistent with CLIA requirements. This test has not been cleared or approved by the U.[place]. [place] d and Drug Administration. Specimen Anatomical Collection Method Collection Time Receive d Time (Source) Location / / Volume Laterality Urine (Urine, 03/12/2021 11:12 03/14/2021 8:00 Clean Catch) PM MECHANICAL CAR CHECKER AM MECHANICAL CAR CHECKER Sera Morgan P.A.-C. LAB URINE ORDERABLES Performing Organization Address City/[facility]/ZIP [facility] Phon e Number [facility] [address] [place] [address] SUPPORT CENTER [place] [address] Laboratory Medicine and Pathology [address] [place] INTUB W ETT, LDA ANE ENDOTRACHEAL AIRWAY (03/12/2021 10:30 PM MECHANICAL CAR CHECKER) Narrative Barrera To M.D. - 2020 10:30 PM MECHANICAL CAR CHECKER Barrera To M.D. ? 03/12/2021 ??6:07 PM Intubation Date/Time: 03/12/2021 10:30 PM Performed by: Barrera To M.D. Authorized by: Barrera To M.D. Patient location during procedure: ICU / PCU PROCEDURE DETAILS: Mask difficulty assessment: easy mask Final airway type: video laryngoscope Laryngeal Manipulation: no ?? Final best view of glottic structures - Cormack/Lehane Score: grade 2A ETT location: oral VL device: glide scope [place] scope blade size: 3 Adult tube size: [...] ORDERABLES (ABNORMAL) Glucose, POCT (03/12/2021 6:11 PM MECHANICAL CAR CHECKER) P athologist Signature Glucose, POCT, 170 (H) 70 - 140 03/12/2021 MKTO B mg/dL 6:11 PM MECHANICAL CAR CHECKER Specimen Anatomical Collection Method Collection Time Receive d Time (Source) Location / / Volume Laterality Blood 03/12/2021 6:11 PM 6:23 MECHANICAL CAR CHECKER PM MECHANICAL CAR CHECKER Generic Rals LAB POCT ORDERABLES-MANUAL Performing Organization Address City/State/ZIP Code Phon e Number [facility]- [address] [place] [phone] [facility] [place] [place] [address] System in [place] [address] [facility] [place] PARACENTESIS ABD WO IMG (03/12/2021 6:02 PM MECHANICAL CAR CHECKER) Narrative Barrera To M.D. - 2020 6:02 PM MECHANICAL CAR CHECKER Barrera To M.D. ? 03/12/2021 ??6:07 PM [...] PROCEDURE/MINOR SURGICAL ORDERABLES THORACENTESIS (03/12/2021 6:02 PM MECHANICAL CAR CHECKER) Narrative Barrera To M.D. - 2020 6:02 PM MECHANICAL CAR CHECKER Barrera To M.D. ? 03/12/2021 ??6:07 PM Thoracentesis Date/Time: 03/12/2021 6:02 PM Performed by: Barrera To M.D. Authorized by: Barrera To M.D. PROCEDURE DETAILS Location: right mid-axillary Intercostal space: 3rd Puncture method: oqon-egs-[id number] cathete r Number of attempts: 1 Drainage [...] lidocaine Barrera Vargas M.D. PROCEDURE/MINOR SURGICAL ORDERABLES WY INS NON-ALEN CVC >5YR, [place] US GUIDE VASC ACCESS, LDA ANE CENTRAL LINE TRIPLE LUMEN, MC ANE CENTRAL LINE GENERIC PERFORMABLE (03/12/2021 6:02 PM MECHANICAL CAR CHECKER) Narrative Barrera To M.D. - 2020 6:02 PM MECHANICAL CAR CHECKER Barrera To M.D. ? 03/12/2021 ??6:07 PM [...] Red Blood Cells : (03/12/2021 5:39 PM MECHANICAL CAR CHECKER) Barrera Vargas M.D. BLOOD TRANSFUSION ORDERA BLES Transfuse Red Blood Cells : , 1 Units (03/12/2021 5:39 PM MECHANICAL CAR CHECKER) Authorizing Provider Result Woodrow Vargas M.D. BLOOD TRANSFUSION ORDERA BLES (ABNORMAL) Hemoglobin (03/12/2021 5:35 PM MECHANICAL CAR CHECKER) athologist Signature Hemoglobin 7.6 (L) 11.6 - 15.0 03/12/2021 MKTO g/dL 5:50 PM MECHANICAL CAR CHECKER Specimen Anatomical Collection Method Collection Time Receive d Time (Source) Location / / Volume Laterality Blood (Blood, 03/12/2021 5:35 PM 03/12/20 5:46 Venous) MECHANICAL CAR CHECKER PM MECHANICAL CAR CHECKER Authorizing Provider Result Woodrow Vargas M.D. LAB BLOOD ADD-ON Performing Organization Address City/[facility] Code Phon e Number [address] [phone] [facility] [place] [address] System in [address] Calcium, Ionized (03/12/2021 5:35 PM MECHANICAL CAR CHECKER) P athologist Signature Calcium, 4.70 4.65 - 5.30 03/12/2021 MKTO Ionized, B mg/dL 5:49 PM MECHANICAL CAR CHECKER Specimen Anatomical Collection Method Collection Time Receive d Time (Source) Location / / Volume Laterality Blood 03/12/2021 5:35 PM 5:46 MECHANICAL CAR CHECKER PM MECHANICAL CAR CHECKER Authorizing Provider Result Woodrow Vargas M.D. LAB BLOOD NON ADD-ON Performing Organization Address City/State/ZIP Code Phon e Number [facility]- [address] [place] [phone] [place] [address] System in [address] (ABNORMAL) pH (03/12/2021 5:35 PM MECHANICAL CAR CHECKER) P athologist Signature pH 7.46 (H) 7.35 - 7.45 03/12/2021 MKTO pH 5:49 PM MECHANICAL CAR CHECKER Specimen Anatomical Collection Method Collection Time Receive d Time (Source) Location / / Volume Laterality Blood 03/12/2021 5:35 PM 5:46 MECHANICAL CAR CHECKER PM MECHANICAL CAR CHECKER Barrera Vargas M.D. LAB HISTORICAL ORDERS Performing Organization Address City/[facility]/ZIP Code Phon e Number [address] [phone] [place] [address] System in [address] (ABNORMAL) Ammonia (03/12/2021 5:35 PM MECHANICAL CAR CHECKER) athologist Signature Ammonia, P 80 (H) <=51 03/12/2021 MKTO mcmol/L 6:06 PM MECHANICAL CAR CHECKER Specimen Anatomical Collection Method Collection Time Receive d Time (Source) Location / / Volume Laterality Blood (Blood, 03/12/2021 5:35 PM 03/12/20 5:46 Venous) MECHANICAL CAR CHECKER PM MECHANICAL CAR CHECKER Barrera Vargas M.D. LAB BLOOD NON ADD-ON Performing Organization Address City/State/ZIP Code Phon e Number [address] [address] [place] [address] System in [address] (ABNORMAL) Phosphorus Inorganic (03/12/2021 5:35 PM MECHANICAL CAR CHECKER) P athologist Signature Phosphorus 4.6 (H) 2.5 - 4.5 03/12/2021 MKTO (Inorganic), P mg/dL 6:07 PM MECHANICAL CAR CHECKER Specimen Anatomical Collection Method Collection Time Receive d Time (Source) Location / / Volume Laterality Blood (Blood, 03/12/2021 5:35 PM 03/12/20 5:46 Venous) MECHANICAL CAR CHECKER PM MECHANICAL CAR CHECKER Barrera Vargas M.D. LAB BLOOD ADD-ON Performing Organization Address City/State/ZIP Code Phon e Number [facility]- [address] [place] [phone] [place] [address] (ABNORMAL) Magnesium (03/12/2021 5:35 PM MECHANICAL CAR CHECKER) P athologist Signature Magnesium, P 3.7 (H) 1.7 - 2.3 03/12/2021 MKTO mg/dL 6:07 PM MECHANICAL CAR CHECKER Specimen Anatomical Collection Method Collection Time Receive d Time (Source) Location / / Volume Laterality Blood (Blood, 03/12/2021 5:35 PM 03/12/20 5:46 Venous) MECHANICAL CAR CHECKER PM MECHANICAL CAR CHECKER Barrera Vargas M.D. LAB BLOOD ADD-ON Performing Organization Address City/[facility] Code Phon e Number [facility]- [address] [place] [phone] [place] [address] (ABNORMAL) Comprehensive Metabolic Panel (03/12/2021 5:35 PM MECHANICAL CAR CHECKER) Analysis Performed At Patho logist Time Signature Potassium, P 2.5 (CL) 3.6 - 5.2 03/12/2021 MKTO mmol/L 6:08 PM MECHANICAL CAR CHECKER Sodium, P 133 (L) 135 - 145 03/12/2021 MKTO mmol/L 6:07 PM MECHANICAL CAR CHECKER Chloride, P 98 98 - 107 03/12/2021 MKTO mmol/L 6:07 PM MECHANICAL CAR CHECKER Bicarbonate, P 20 (L) 22 - 29 03/12/2021 MKTO mmol/L 6:07 PM MECHANICAL CAR CHECKER Anion Gap, P 15 7 - 15 03/12/2021 MKTO 6:07 PM MECHANICAL CAR CHECKER BUN (Blood Urea 9 6 - 21 03/12/2021 MKTO Nitrogen), P mg/dL 6:07 PM MECHANICAL CAR CHECKER Creatinine 0.57 (L) 0.59 - 03/12/2021 MKTO 1.04 mg/dL 6:07 PM MECHANICAL CAR CHECKER eGFR-Black/Afri >90 >=60 03/12/2021 MKTO can Ug[place]an mL/min/BSA 6:07 PM MECHANICAL CAR CHECKER Comment: ----ADDITIONAL INFORMATION---- Estimated GFR calculated using the 2009 CKD_EPI creatinine equation. eGFR Non-Black/ >90 >=60 mL/min/BSA 03/12/2021 6:07 PM MECHANICAL CAR CHECKER MKTO Comment: ----ADDITIONAL INFORMATION---- Estimated GFR calculated using the 2009 CKD_EPI creatinine equation. Calcium, Total, P 8.7 8.6 - 10.0 mg/dL 03/12/2021 6:07 PM MECHANICAL CAR CHECKER MKTO Glucose, P 190 (H) 70 - 140 mg/dL 03/12/2021 6:07 PM MECHANICAL CAR CHECKER M KTO Protein, Total, P 5.5 (L) 6.3 - 7.9 g/dL 03/12/2021 6:07 P M MECHANICAL CAR CHECKER MKTO Albumin, P 3.4 (L) 3.5 - 5.0 g/dL 03/12/2021 6:07 PM MECHANICAL CAR CHECKER M KTO Aspartate Aminotransferase 66 (H) 8 - 43 U/L 03/12/2021 6 :07 PM MECHANICAL CAR CHECKER MKTO (AST), P Alkaline Phosphatase, P 97 35 - 104 U/L 03/12/2021 6: 07 PM MECHANICAL CAR CHECKER MKTO Alanine Aminotransferase 16 7 - 45 U/L 03/12/2021 6:0 7 PM MECHANICAL CAR CHECKER MKTO (ALT), P Bilirubin, Total, P 6.0 (H) <=1.2 mg/dL 03/12/2021 6:07 PM MECHANICAL CAR CHECKER MKTO Specimen Anatomical Collection Method Collection Time Receive d Time (Source) Location / / Volume Laterality Blood (Blood, 03/12/2021 5:35 PM 03/12/20 5:46 Venous) MECHANICAL CAR CHECKER PM MECHANICAL CAR CHECKER Barrera Vargas M.D. LAB BLOOD ADD-ON Performing Organization Address City/State/ZIP Code Phon e Number [facility]- [address] [place] [phone] [facility] [place] [address] System in [place] [address] [place] [address] Bacterial Culture, Aerobic + Susc (03/12/2021 3:46 PM MECHANICAL CAR CHECKER) [facility] gist Method Time Signature Bacterial No growth 03/17/2021 MKTO Culture, after 5 7:38 AM MECHANICAL CAR CHECKER Aerobic + Susc days of incubation. Specimen Anatomical Collection Method Collection Time Receive d Time (Source) Location / / Volume Laterality Fluid 03/12/2021 3:46 PM 1 3:46 (Peritoneal MECHANICAL CAR CHECKER PM MECHANICAL CAR CHECKER Fluid) Comment: Specimen Source Site: Fluid Sera Morgan P.A.-C. LAB MICROBIOLOGY - GENERAL O RDERABLES Performing Organization Address City/[facility]/ZIP Code Phon e Number [facility]- [address] [place] [phone] [place] [address] System in [place] [address] [place] [address] Bacterial Culture, Anaerobic + Susc (03/12/2021 3:46 PM MECHANICAL CAR CHECKER) [facility] Method Time Signature Bacterial No growth 03/19/2021 MKTO Culture, after 7 8:26 AM MECHANICAL CAR CHECKER Anaerobic days of incubation. Specimen Anatomical Collection Method Collection Time Receive d Time (Source) Location / / Volume Laterality Fluid 03/12/2021 3:46 PM 1 3:46 (Peritoneal MECHANICAL CAR CHECKER PM MECHANICAL CAR CHECKER Fluid) Comment: Specimen Source Site: Fluid Sera Morgan P.A.-C. LAB MICROBIOLOGY - GENERAL O RDERABLES Performing Organization Address City/[facility]/ZIP Code Phon e Number [facility]- [address] [place] [phone] [place] [address] System in [place] [address] [place] [address] Gram Stain (03/12/2021 3:46 PM MECHANICAL CAR CHECKER) [facility] Method Time Signature Gram Stain No organisms seen. 03/12/2021 MKTO White blood cells present. 6:22 PM MECHANICAL CAR CHECKER Stain performed on concentrated cytospin preparation. Specimen Anatomical Collection Method Collection Time Receive d Time (Source) Location / / Volume Laterality Fluid 03/12/2021 3:46 PM 1 3:46 (Peritoneal MECHANICAL CAR CHECKER PM MECHANICAL CAR CHECKER Fluid) Comment: Specimen Source Site: Fluid Sera Morgan P.A.-C. LAB MICROBIOLOGY - GENERAL O RDERABLES Performing Organization Address City/State/ZIP Code Phon e Number [facility]- [address] [place] [phone] [facility] [place] [address] System in [place] [address] [facility] Protein, Total, Body Fluid (03/12/2021 3:46 PM MECHANICAL CAR CHECKER) athologist Signature Protein, 1.0 See Comment 03/14/2021 DTL Total, BF g/dL 10:40 AM MECHANICAL CAR CHECKER Comment: ----ADDITIONAL INFORMATION---- A pleural fluid total [...] ical findings. All other fluids refer to www.[employer].com for further inter pretive information. This test has been modified from the combustion engineer's instructions. Its perform ance characteristics were determined by [facility] in a manner consistent with CLIA require ments. This test has not been cleared or approv ed by the U.S. Food and Drug Administration. Fluid Type, Protein, Total PERITONEAL 03/14/2021 1 0:06 AM MECHANICAL CAR CHECKER DTL Specimen Anatomical Collection Method Collection Time Receive d Time (Source) Location / / Volume Laterality Fluid 03/12/2021 3:46 PM 1 9:49 (Peritoneal MECHANICAL CAR CHECKER AM MECHANICAL CAR CHECKER Fluid) Sera Morgan P.A.-C. LAB BODY FLUIDS AND STOOLS O RDERABLES Performing Organization Address City/State/ZIP Code Phon e Number [facility] - [address] [place], [place] [address] [facility] [place] [address] Laboratories-[facility] [address] Cell Count and Differential, Body Fluid (03/12/2021 3:46 PM MECHANICAL CAR CHECKER) Patholo gist Method Time Signature Fluid Type Peritoneal/ 03/12/2021 MKTO Paracentesi 4:30 PM MECHANICAL CAR CHECKER s Gross Serous 03/12/2021 MKTO Appearance 4:33 PM MECHANICAL CAR CHECKER Total Nucleated 53 /mcL 03/12/2021 MKTO Cells 4:33 PM MECHANICAL CAR CHECKER Comment: ----REFERENCE VALUE---- Synovial: <150 Peritoneal: <500 Pleural: <500 Pericardial: <500 ----ADDITIONAL INFORMATION---- This test has been modified from the man ufacturer's instructions. Its performance characteri stics were determined by [facility] in a manner co nsistent with CLIA requirements. This test has not bee n cleared or approved by the U.S. Food and Drug Admin istration. Lymphocytes 31 Synovial: <75% % 03/12/2021 5:20 PM CS T MKTO Monocytes/Macrophages 63 Synovial: <70% % 03/12/2021 5:20 PM MECHANICAL CAR CHECKER MKTO Other Cells 6 % 03/12/2021 5:20 PM MECHANICAL CAR CHECKER MKTO Comment: ----REFERENCE VALUE---- The reference range and other method per formance specifications have not been established for this body fluid. The test result must be integrate d into the clinical context for interpretation. Other Cells Are: Mesothelial cells 03/12/2021 5:20 PM MECHANICAL CAR CHECKER MKTO Comment SeeComment 03/12/2021 4:33 PM MECHANICAL CAR CHECKER MKTO Comment: will be reviewed py path. Reviewed by: Dr. Fox 03/13/2021 8:07 AM MECHANICAL CAR CHECKER MKTO Comment: REVISED RESULTS ----PREVIOUSLY REPORTED ---- DNR, Flagged as: Normal (Reported 03/12/2021 17:20) Specimen Anatomical Collection Method Collection Time Receive d Time (Source) Location / / Volume Laterality Fluid 03/12/2021 3:46 PM 3:46 (Peritoneal MECHANICAL CAR CHECKER PM MECHANICAL CAR CHECKER Fluid) Sera Morgan P.A.-C. LAB BODY FLUIDS AND STOOLS O RDERABLES Performing Organization Address City/State/ZIP Code Phon e Number [facility]- [address] [place] [phone] [facility] [place] [address] System in [address] Albumin, Body Fluid (03/12/2021 3:46 PM MECHANICAL CAR CHECKER) P athologist Signature Albumin BF 0.7 See Comment 03/14/2021 DTL g/dL 10:40 AM MECHANICAL CAR CHECKER Comment: ----ADDITIONAL INFORMATION---- Peritoneal fluid albumin is used to calc ulate the serum-ascites albumin gradient (SAAG). V alues greater than or equal to 1.1 g/dL suggest portal hypertension. Pleural fluid albumin may be used to ada culate a serum-effusion albumin gradient. Values greater than 1.2 g/dL are most consistent with a noriega sudative process. ?? All other fluids refer to [email or web address].com for further interpretive information. This t est has been modified from the combustion engineer's instruc tions. Its performance characteristics were determi foreign by [facility] in a manner consistent with CLIA require ments. This test has not been cleared or approved by the U.S. Food and Drug Administration. Fluid Type, Albumin PERITONEAL 03/14/2021 10:06 AM MECHANICAL CAR CHECKER DTL Specimen Anatomical Collection Method Collection Time Receive d Time (Source) Location / / Volume Laterality Fluid 03/12/2021 3:46 PM 9:49 (Peritoneal MECHANICAL CAR CHECKER AM MECHANICAL CAR CHECKER Fluid) Sera Morgan P.A.-C. LAB BODY FLUIDS AND STOOLS O RDERABLES Performing Organization Address City/[facility]/ZIP Code Phon e Number [facility] - [address] [place], [place] [address] [facility] [place] [address] [facility] [address] [id number] (03/12/2021 2:57 PM MECHANICAL CAR CHECKER) athologist Signature [id number] 170 100 - 190 03/14/2021 [facility] psin, S mg/dL 10:09 AM MECHANICAL CAR CHECKER Specimen Anatomical Collection Method Collection Time Receive d Time (Source) Location / / Volume Laterality Blood (Blood, 03/12/2021 2:57 PM 03/14/20 7:05 Venous) MECHANICAL CAR CHECKER AM MECHANICAL CAR CHECKER Sera Morgan P.A.-C. LAB BLOOD ADD-ON Performing Organization Address City/[facility]/ZIP Code Phon e Number [facility] [address] [place], [place] [address] SUPPORT CENTER [facility] [address] Laboratory Medicine and Pathology [address] [place] (ABNORMAL) Ceruloplasmin (03/12/2021 2:57 PM MECHANICAL CAR CHECKER) athologist Signature Ceruloplasmin, 16.5 (L) 20.0 - 03/13/2021 DTL S 51.0 mg/dL 10:48 AM MECHANICAL CAR CHECKER Comment: A low concentration of ceruloplasmin in [...] at or the on-line test catalog at [facility] for m ore information. Specimen Anatomical Collection Method Collection Time Receive d Time (Source) Location / / Volume Laterality Blood 03/12/2021 2:57 PM 8:43 MECHANICAL CAR CHECKER AM MECHANICAL CAR CHECKER Barrera Vargas M.D. LAB BLOOD ADD-ON Performing Organization Address City/State/ZIP Code Phon e Number [facility] - [address] [place], [place] [address] [facility] [place] [address] [facility] 200 [facility] Autoimmune Liver Disease Panel (03/12/2021 2:57 PM MECHANICAL CAR CHECKER) Analysis Performed At Patho logist Time Signature Mitochondrial Ab, <0.1 <0.1 03/13/2021 [facility] M2, S (Negative) 2:19 PM MECHANICAL CAR CHECKER U Antinuclear Ab, S 0.2 <=1.0 03/13/2021 [facility] (Negative) 12:55 PM MECHANICAL CAR CHECKER U Comment: ----ADDITIONAL INFORMATION---- Method: Enzyme-linked immunoassay using HEp-2 nuclear extract supplemented with purified antig ens. Smooth Muscle Ab Screen, S Negative Negative 03/13/2021 12 :11 PM MECHANICAL CAR CHECKER [facility] Comment: Negative: No further testing will be per formed ----ADDITIONAL INFORMATION---- This test was developed and its performa nce characteristics determined by [facility] in a manner consistent with CLIA requirements. This test has not been cleared or approved by the U.[place]. Meg[place] d and Drug Administration. Specimen Anatomical Collection Method Collection Time Receive d Time (Source) Location / / Volume Laterality Blood 03/12/2021 2:57 PM 7:28 MECHANICAL CAR CHECKER AM MECHANICAL CAR CHECKER Barrera Vargas M.D. LAB BLOOD ADD-ON Performing Organization Address City/State/ZIP Code Phon e Number [facility] [address] [place], [place] [address] [place] [address] CENTER [facility] [address] Laboratory Medicine and Pathology [address] [place] (ABNORMAL) Glucose, POCT (03/12/2021 2:06 PM MECHANICAL CAR CHECKER) athologist Signature Glucose, POCT, 155 (H) 70 - 140 03/12/2021 MKTO B mg/dL 2:06 PM MECHANICAL CAR CHECKER Specimen Anatomical Collection Method Collection Time Receive d Time (Source) Location / / Volume Laterality Blood 03/12/2021 2:06 PM 1 2:39 MECHANICAL CAR CHECKER PM MECHANICAL CAR CHECKER Generic Rals LAB POCT ORDERABLES-MANUAL Performing Organization Address City/State/ZIP Code Phon e Number [facility]- [address] [place] [phone] [place] [address] System in [address] [place] Abdomen Pelvis with IV Contrast (03/12/2021 1:50 PM MECHANICAL CAR CHECKER) Anatomical Region Laterality Modality Abdomen, Pelvis, Abdominal RST LOS, Abdominal ARZ LOS, N/A Computed Tomography Abdominal FLA LOS Specimen (Source) Anatomical Collection Method Collection Time Re ceived Time Location / / Volume Laterality 03/12/2021 2:04 PM MECHANICAL CAR CHECKER Impressions 03/12/2021 2:37 PM MECHANICAL CAR CHECKER 1. ??Partial atelectasis of the bilatera l [...] anterior fifth rib. Narrative 03/12/2021 2:37 PM MECHANICAL CAR CHECKER EXAM: CT CHEST WITH IV CONTRAST, CT [...] Chest with IV Contrast (03/12/2021 1:50 PM MECHANICAL CAR CHECKER) Anatomical Region Laterality Modality Chest, Thoracic RST LOS, Thoracic ARZ LOS, Thoracic N/A Computed Tomography ARZ LOS, Thoracic FLA LOS Specimen (Source) Anatomical Collection Method Collection Time Re ceived Time Location / / Volume Laterality 03/12/2021 2:04 PM MECHANICAL CAR CHECKER Impressions 03/12/2021 2:37 PM MECHANICAL CAR CHECKER 1. ??Partial atelectasis of the bilatera l [...] anterior fifth rib. Narrative 03/12/2021 2:37 PM MECHANICAL CAR CHECKER EXAM: CT CHEST WITH IV CONTRAST, CT [...] Head without IV Contrast (03/12/2021 1:49 PM MECHANICAL CAR CHECKER) Anatomical Region Laterality Modality Head, Neuroradiology RST LOS, Neuroradiology ARZ LOS, N/A Computed Tomography Neuroradiology FLA LOS Specimen (Source) Anatomical Collection Method Collection Time Re ceived Time Location / / Volume Laterality 03/12/2021 1:50 PM MECHANICAL CAR CHECKER Impressions 03/12/2021 1:52 PM MECHANICAL CAR CHECKER No acute CT abnormalities are demonstrated. Narrative 03/12/2021 1:52 PM MECHANICAL CAR CHECKER EXAM: CT HEAD WITHOUT IV CONTRAST COMPARISON: [...] Barrera Vargas M.D. IMG CT PROCEDURES Cytology Non-CAKE WRINGER (03/12/2021 1:11 PM MECHANICAL CAR CHECKER) Component Value Ref Test Analysis Performed At [facility] Range Method Time Signature /14/2021 [facility] 12:37 PM MECHANICAL CAR CHECKER Report Lloyd Alfaro MD 03/14/2021 [facility] electronically 12:37 PM signed by MECHANICAL CAR CHECKER I verify that I have examined all relevant slides/materials for the specimen(s) and rendered or confirmed the diagnosis. Gross Description 800 ml cloudy brownish red fluid received. ??60 m l fixed 03/14/2021 [facility] with 70% ETOH 03-12-21 @ 15:30 12:37 PM 2 slides and cell block prepared. MECHANICAL CAR CHECKER Source A. Pleural, 03/14/2021 [facility] Right, fluid 12:37 PM MECHANICAL CAR CHECKER Interpretation A. Pleural, Right, fluid (smears/cell block): Negati ve for 03/14/2021 [facility] malignancy. 12:37 PM MECHANICAL CAR CHECKER Specimen Anatomical Collection Method Collection Time Receive d Time (Source) Location / / Volume Laterality Varies 03/12/2021 1:11 PM 6:20 MECHANICAL CAR CHECKER AM MECHANICAL CAR CHECKER Narrative This result has an attachment that is no t available. Barrera Vargas M.D. LAB SURG PATH ORDERABLES Performing Organization Address City/State/ZIP Code Phon e Number [facility]- [address] [place], [place] [id number] [place] [address] CYTOLOGY [facility] [place] [address] System [place] Cytology [address] [facility] ECG 12 Lead (03/12/2021 1:01 PM MECHANICAL CAR CHECKER) P athologist Signature Ventricular Rate 84 BPM MUSE ECG/Min [place] Interval 166 ms MUSE QRSD Interval 92 ms MUSE QT Interval 436 ms MUSE QTC Interval 516 ms MUSE P [place] 62 degrees MUSE R [place] 43 degrees MUSE T Wave [place] -20 degrees MUSE Specimen Anatomical Collection Method Collection Time Receive d Time (Source) Location / / Volume Laterality 03/12/2021 1:01 PM 1:24 MECHANICAL CAR CHECKER PM MECHANICAL CAR CHECKER Impressions MUSE - 03/12/2021 1:21 PM MECHANICAL CAR CHECKER Normal sinus rhythm ST and T wave [...] Chest Portable 1 View (03/12/2021 1:00 PM MECHANICAL CAR CHECKER) Anatomical Region Laterality Modality Chest, Thoracic RST LOS, Thoracic ARZ LOS, Thoracic N/A Digital Radiography FLA LOS Specimen (Source) Anatomical Collection Method Collection Time Re ceived Time Location / / Volume Laterality 03/12/2021 1:12 PM MECHANICAL CAR CHECKER Impressions 03/12/2021 1:14 PM MECHANICAL CAR CHECKER 1. New endotracheal tube with tip positioned [...] acute airspace disease. Narrative 03/12/2021 1:14 PM MECHANICAL CAR CHECKER EXAM: DX CHEST PORTABLE 1 VIEW COMPARISON: [...] P ROCEDURES Testing Location (03/12/2021 12:59 PM MECHANICAL CAR CHECKER) athologist Signature Testing [facility] DEFAULT 03/12/2021 MKTO Location 1:05 PM MECHANICAL CAR CHECKER Specimen Anatomical Collection Method Collection Time Receive d Time (Source) Location / / Volume Laterality Blood 03/12/2021 12:59 03/12/2021 1:05 PM MECHANICAL CAR CHECKER PM MECHANICAL CAR CHECKER Barrera Vargas M.D. LAB BLOOD BANK TEST ORDE RABLES Performing Organization Address City/[facility]/ZIP Code Phon e Number [address] [address] [place] [address] System in [address] (ABNORMAL) Bilirubin, Direct (03/12/2021 12:59 PM MECHANICAL CAR CHECKER) P athologist Signature Bilirubin, 2.7 (H) 0.0 - 0.3 03/12/2021 MKTO Direct, P mg/dL 1:40 PM MECHANICAL CAR CHECKER Specimen Anatomical Collection Method Collection Time Receive d Time (Source) Location / / Volume Laterality Blood (Blood, 03/12/2021 12:59 03/12/2021 1:08 Venous) PM MECHANICAL CAR CHECKER PM MECHANICAL CAR CHECKER Sera Morgan P.A.-C. LAB BLOOD ADD-ON Performing Organization Address City/[facility]/ZIP Code Phon e Number [address] [address] [place] [address] System in [address] Patient Status (03/12/2021 12:59 PM MECHANICAL CAR CHECKER) P athologist Signature FIO2 0.50 0.21=AIR 03/12/2021 1:09 MKTO PM MECHANICAL CAR CHECKER Specimen Anatomical Collection Method Collection Time Receive d Time (Source) Location / / Volume Laterality Blood 03/12/2021 12:59 03/12/2021 1:04 PM MECHANICAL CAR CHECKER PM MECHANICAL CAR CHECKER Barrera Vargas M.D. LAB BLOOD NON ADD-ON Performing Organization Address City/[facility]/ZIP Code Phon e Number [address] [phone] [place] [address] System in [address] Lactate, B (03/12/2021 12:59 PM MECHANICAL CAR CHECKER) P athologist Signature Lactate, B 2.2 0.5 - 2.2 03/12/2021 MKTO mmol/L 1:09 PM MECHANICAL CAR CHECKER Specimen Anatomical Collection Method Collection Time Receive d Time (Source) Location / / Volume Laterality Blood 03/12/2021 12:59 03/12/2021 1:05 PM MECHANICAL CAR CHECKER PM MECHANICAL CAR CHECKER Barrera Vargas M.D. LAB BLOOD NON ADD-ON Performing Organization Address City/State/ZIP Code Phon e Number [facility]- [address] [place] [phone] [facility] [place] [address] System in [address] (ABNORMAL) Blood Gas with Coox, Arterial (03/12/2021 12:59 PM MECHANICAL CAR CHECKER) P athologist Signature P O2 102 83 - 108 03/12/2021 MKTO mm Hg 1:09 PM MECHANICAL CAR CHECKER P CO2 31 (L) 32 - 45 mm 03/12/2021 [facility] Hg 1:09 PM MECHANICAL CAR CHECKER pH 7.47 (H) 7.35 - 03/12/2021 MKTO 7.45 pH 1:09 PM MECHANICAL CAR CHECKER Base Excess -1 -2 - 3 03/12/2021 [facility] mmol/L 1:09 PM MECHANICAL CAR CHECKER HCO3 23 22 - 26 03/12/2021 MK[facility] mmol/L 1:09 PM MECHANICAL CAR CHECKER Hemoglobin, B 6.5 (L) 11.6 - 03/12/2021 MKTO 15.0 g/dL 1:09 PM MECHANICAL CAR CHECKER O2Hb 96.9 94.0 - 03/12/2021 MKTO 98.0 % 1:09 PM MECHANICAL CAR CHECKER COHb 1.8 <3.0 % 03/12/2021 MKTO 1:09 PM MECHANICAL CAR CHECKER MetHb 0.0 <1.5 % 03/12/2021 MKTO 1:09 PM MECHANICAL CAR CHECKER CtO2 9.1 (L) 18.0 - 03/12/2021 MKTO 21.0 vol % 1:09 PM MECHANICAL CAR CHECKER Arterial Art Line 03/12/2021 MKTO Sample Site 1:09 PM MECHANICAL CAR CHECKER Comment: Michael's test not done. Specimen Anatomical Collection Method Collection Time Receive d Time (Source) Location / / Volume Laterality Blood (Blood, 03/12/2021 12:59 03/12/2021 1:04 Arterial) PM MECHANICAL CAR CHECKER PM MECHANICAL CAR CHECKER Barrera Vargas M.D. LAB BLOOD NON ADD-ON Performing Organization Address City/State/ZIP Code Phon e Number [facility]- [address] [place] [phone] [place] [address] System in [address] Type and Screen (with reflex Antibody ID) (03/12/2021 12:59 PM MECHANICAL CAR CHECKER) [facility] gist Method Time Signature ABO Group B 03/12/2021 MKTO 1:45 PM MECHANICAL CAR CHECKER Rh Type POS 03/12/2021 MKTO 1:45 PM MECHANICAL CAR CHECKER Antibody Screen NEG 03/12/2021 MKTO 1:45 PM MECHANICAL CAR CHECKER Type & Screen 03/15/2021 03/12/2021 MKTO Expiration 23:59 1:45 PM MECHANICAL CAR CHECKER ELXM Eligible Y 03/12/2021 MKTO 1:45 PM MECHANICAL CAR CHECKER Specimen Anatomical Collection Method Collection Time Receive d Time (Source) Location / / Volume Laterality Blood (Blood, 03/12/2021 12:59 03/12/2021 1:05 Venous) PM MECHANICAL CAR CHECKER PM MECHANICAL CAR CHECKER Barrera Vargas M.D. LAB BLOOD BANK TEST YO ELISE Performing Organization Address City/[facility]/ZIP Code Phon e Number [facility]- [address] [place] [phone] [place] [address] System in [address] LD (Lactate Dehydrogenase) (03/12/2021 12:59 PM MECHANICAL CAR CHECKER) Analysis Performed At [facility] logist Time Signature Lactate 218 122 - 222 03/12/2021 TO Dehydrogenase U/L 1:39 PM MECHANICAL CAR CHECKER (LD), P Specimen Anatomical Collection Method Collection Time Receive d Time (Source) Location / / Volume Laterality Blood (Blood, 03/12/2021 12:59 03/12/2021 1:26 Venous) PM MECHANICAL CAR CHECKER PM MECHANICAL CAR CHECKER Barrera Vargas M.D. LAB BLOOD NON ADD-ON Performing Organization Address City/[facility] Phon e Number [address] [address] [place] [address] System in [address] Cytology Non-CAKE WRINGER (03/12/2021 12:39 PM MECHANICAL CAR CHECKER) Component Value Ref Test Analysis Performed At [facility] gist Range Method Time Signature 03/14/2021 [facility] 12:36 PM MECHANICAL CAR CHECKER Report Lloyd Alfaro MD 03/14/2021 [facility] electronically 12:36 PM signed by MECHANICAL CAR CHECKER I verify that I have examined all relevant slides/materials for the specimen(s) and rendered or confirmed the diagnosis. Gross Description 925 ml of cloudy hinson yellow fluid received. ?? Specimen 03/14/2021 [facility] fixed @ 2:00 pm on 03-12-2021. 12:36 PM 2 slides and cell block prepared. MECHANICAL CAR CHECKER Collection Paracentesis 03/14/2021 [facility] Procedure 12:36 PM MECHANICAL CAR CHECKER Source A. Peritoneal, 03/14/2021 [facility] fluid 12:36 PM MECHANICAL CAR CHECKER Interpretation A. Peritoneal, fluid (smears/cell block): Negative f or 03/14/2021 [facility] malignancy. 12:36 PM MECHANICAL CAR CHECKER Specimen Anatomical Collection Method Collection Time Receive d Time (Source) Location / / Volume Laterality Varies 03/12/2021 12:39 03/12/2021 2:00 PM MECHANICAL CAR CHECKER PM MECHANICAL CAR CHECKER Narrative This result has an attachment that is no t available. Barrera Vargas M.D. LAB SURG PATH ORDERABLES Performing Organization Address City/State/ZIP Code Phon e Number [facility]- [address] [place] [address] Cyt[address] [place] [address] Lactate Dehydrogenase (LD), Body Fluid (03/12/2021 12:35 PM MECHANICAL CAR CHECKER) [facility] Method Time Signature Lactate 84 See Comment 03/13/2021 DTL Dehydrogenase U/L 11:50 AM MECHANICAL CAR CHECKER (LD), BF Comment: ----ADDITIONAL INFORMATION---- Pleural fluid [...] clinical findings. All other fluids refer to [email or web address] for further interpretive information. This test has been modified from the man ufacturer's instructions. Its performance characteristics were det ermined by [facility] in a manner consistent with CLIA requirements . This test has not been cleared or approved by the U.S. Food and Drug Administration. Fluid Type, Lactate Pleural Fluid, Right 1 10:15 AM MECHANICAL CAR CHECKER DTL Dehydrogenase Specimen Anatomical Collection Method Collection Time Receive d Time (Source) Location / / Volume Laterality Fluid (Pleural 03/12/2021 12:35 1 8:56 Fluid, Right) PM MECHANICAL CAR CHECKER AM MECHANICAL CAR CHECKER Barrera Vargas M.D. LAB BODY FLUIDS AND STOO LS ORDERABLES Performing Organization Address City/State/ZIP Code Phon e Number [facility] - [address] [place], [place] [address] [facility] [place] [address] [facility] [address] Protein, Total, Body Fluid (03/12/2021 12:35 PM MECHANICAL CAR CHECKER) P athologist Signature Protein, 1.5 See Comment 03/13/2021 DTL Total, BF g/dL 11:50 AM MECHANICAL CAR CHECKER Comment: ----ADDITIONAL INFORMATION---- A pleural fluid total [...] This test has been modified from the combustion engineer's instructions. Its perform ance characteristics were determined by [facility] in a manner consistent with CLIA require ments. This test has not been cleared or approv ed by the U.S. Food and Drug Administration. Fluid Type, Protein, Total Pleural Fluid, Right 10:15 AM MECHANICAL CAR CHECKER DTL Specimen Anatomical Collection Method Collection Time Receive d Time (Source) Location / / Volume Laterality Fluid (Pleural 03/12/2021 12:35 1 8:56 Fluid, Right) PM MECHANICAL CAR CHECKER AM MECHANICAL CAR CHECKER Barrera Vargas M.D. LAB BODY FLUIDS AND STOO LS ORDERABLES Performing Organization Address City/State/ZIP Code Phon e Number [facility] - [address] [place], [place] [address] [place] [address] [facility] [address] [facility] Glucose, Body Fluid (03/12/2021 12:34 PM MECHANICAL CAR CHECKER) athologist Signature Glucose, BF 124 See Comment 03/13/2021 DTL mg/dL 11:44 AM MECHANICAL CAR CHECKER Comment: ----ADDITIONAL INFORMATION---- Body fluid glucose concentrations [...] test has been modified from the man luis fernandourer's instructions. Its performance characteri stics were determined by [facility] in a manner co nsistent with CLIA requirements. This test has not been norah ared or approved by the U.S. Food and Drug Administration. Fluid Type, Glucose Pleural Fluid, Right 1 10:14 AM MECHANICAL CAR CHECKER DT Specimen Anatomical Collection Method Collection Time Receive d Time (Source) Location / / Volume Laterality Fluid (Pleural 03/12/2021 12:34 1 8:55 Fluid, Right) PM MECHANICAL CAR CHECKER AM MECHANICAL CAR CHECKER Barrera Vargas M.D. LAB BODY FLUIDS AND STOO LS ORDERABLES Performing Organization Address City/[facility]/ZIP Code Phon e Number [facility] - [address] [place], [place] [address] [facility] [place] [address] [facility] [address] [facility] Gram Stain (03/12/2021 12:34 PM MECHANICAL CAR CHECKER) [facility] gist Method Time Signature Gram Stain No organisms seen. 03/12/2021 MKTO White blood cells present. 4:46 PM MECHANICAL CAR CHECKER Stain performed on concentrated cytospin preparation. Specimen Anatomical Collection Method Collection Time Receive d Time (Source) Location / / Volume Laterality Fluid (Pleural 03/12/2021 12:34 1:08 Fluid, Right) PM MECHANICAL CAR CHECKER PM MECHANICAL CAR CHECKER Comment: Specimen Source Site: Fluid Barrera Vargas M.D. LAB MICROBIOLOGY - GENER AL ORDERABLES Performing Organization Address City/State/ZIP Code Phon e Number [facility]- [facility] [place] [address] [facility] [place] [address] System in [address] Cell Count and Differential, Body Fluid (03/12/2021 12:34 PM MECHANICAL CAR CHECKER) [facility] Method Time Signature Fluid Type Pleural/Thor 03/12/2021 MKTO acentesis 2:12 PM MECHANICAL CAR CHECKER Gross Slightly 03/12/2021 MKTO Appearance Cloudy 2:13 PM MECHANICAL CAR CHECKER Total 350 /mcL 03/12/2021 MKTO Nucleated 2:13 PM MECHANICAL CAR CHECKER Cells Comment: ----REFERENCE VALUE---- Synovial: <150 Peritoneal: <500 Pleural: <500 Pericardial: <500 ----ADDITIONAL INFORMATION---- This test has been modified from the boone ufacturer's instructions. Its performance characteri stics were determined by [facility] in a manner co nsistent with CLIA requirements. This test has not bee n cleared or approved by the U.S. Food and Drug Admin istration. Neutrophils 4 % 03/12/2021 2:47 PM MECHANICAL CAR CHECKER MKTO Comment: ----REFERENCE VALUE---- Synovial: <25% Peritoneal: <25% Pleural: <25% Pericardial: <25% Lymphocytes 13 Synovial: <75% % 03/12/2021 2:47 PM CS T MKTO Monocytes/Macrophages 76 Synovial: <70% % 03/12/2021 2:47 PM MECHANICAL CAR CHECKER MKTO Other Cells 7 % 03/12/2021 2:47 PM MECHANICAL CAR CHECKER MKTO Comment: ----REFERENCE VALUE---- The reference range and other method per formance specifications have not been established for this body fluid. The test result must be integrate d into the clinical context for interpretation. Other Cells Are: Mesothelial cells 03/12/2021 2:47 PM MECHANICAL CAR CHECKER MKTO Reviewed by: Dr. Joshua Castrejon 03/12/2021 2:47 PM CS T MKTO Specimen Anatomical Collection Method Collection Time Receive d Time (Source) Location / / Volume Laterality Fluid (Pleural 03/12/2021 12:34 1 1:08 Fluid, Right) PM MECHANICAL CAR CHECKER PM MECHANICAL CAR CHECKER Barrera Vargas M.D. LAB BODY FLUIDS AND STOO LS ORDERABLES Performing Organization Address City/[facility]/ZIP [facility] Phon e Number [facility]- [address] [place] [phone] [place] [address] Bacterial Culture, Anaerobic + Susc (03/12/2021 12:34 PM MECHANICAL CAR CHECKER) Patholo gist Method Time Signature Bacterial No growth 03/19/2021 MKTO Culture, after 7 8:26 AM MECHANICAL CAR CHECKER Anaerobic days of incubation. Specimen Anatomical Collection Method Collection Time Receive d Time (Source) Location / / Volume Laterality Fluid (Pleural 03/12/2021 12:34 1 1:08 Fluid, Right) PM MECHANICAL CAR CHECKER PM MECHANICAL CAR CHECKER Comment: Specimen Source Site: Fluid Barrera Vargas M.D. LAB MICROBIOLOGY - GENER AL ORDERABLES Performing Organization Address City/[facility]/ZIP Code Phon e Number [facility]- [address] [place] [phone] [place] [address] Bacterial Culture, Aerobic + Susc (03/12/2021 12:34 PM MECHANICAL CAR CHECKER) Patholo gist Method Time Signature Bacterial No growth 03/17/2021 MKTO Culture, after 5 7:38 AM MECHANICAL CAR CHECKER Aerobic + Susc days of incubation. Specimen Anatomical Collection Method Collection Time Receive d Time (Source) Location / / Volume Laterality Fluid (Pleural 03/12/2021 12:34 1 1:08 Fluid, Right) PM MECHANICAL CAR CHECKER PM MECHANICAL CAR CHECKER Comment: Specimen Source Site: Fluid Barrera Vargas M.D. LAB MICROBIOLOGY - GENER AL ORDERABLES Performing Organization Address City/[facility]/ZIP Code Phon e Number [facility]- [address] [place] [address] [facility] [place] [address] System in [place] [address] [facility] Influenza A/B and RSV, PCR, Varies (03/12/2021 11:00 AM MECHANICAL CAR CHECKER) [facility] Method Time Signature Influenza A/B Swab, 03/13/2021 DTL and RSV, Nasopharynx 11:55 AM Source MECHANICAL CAR CHECKER Influenza A, Undetected Undetected 03/13/2021 DTL PCR 11:55 AM MECHANICAL CAR CHECKER Comment: Influenza A RNA absent. Influenza B, PCR Undetected Undetected 03/13/2021 11:[address] DTL Comment: Influenza B RNA absent. Respiratory Syncytial Virus, Undetected Undetected 11:55 AM MECHANICAL CAR CHECKER DTL PCR Comment: RSV RNA absent. ----ADDITIONAL INFORMATION---- This test has been modified from the [facility] instructions. Its performance characteristics were determi foreign by [facility] in a manner consistent with CLIA requirements. This test has not been cleared or approved by the U.S. Food and Drug Administration . Specimen Anatomical Collection Method Collection Time Receive d Time (Source) Location / / Volume Laterality Varies 03/12/2021 11:00 03/13/2021 7:12 (Nasopharynx) AM MECHANICAL CAR CHECKER AM MECHANICAL CAR CHECKER Nunu Sanches P.A.-C., M.S. LAB MICROBIOLOGY - GENE RAL ORDERABLES Performing Organization Address City/[facility]/ZIP Code Phon e Number [facility] - [address] [place], [place] [address] [facility] [place] [address] [facility] [address] SARS Coronavirus-2 RNA, V Symptomatic (03/12/2021 11:00 AM MECHANICAL CAR CHECKER) [facility] Method Time Signature SARS-CoV-2 Swab, 03/12/2021 MKTO Specimen Nasopharynx 7:30 PM MECHANICAL CAR CHECKER Source SARS CoV-2 Undetected Undetected 03/12/2021 MKTO RNA, TMA 7:30 PM MECHANICAL CAR CHECKER Comment: SARS-CoV-2 RNA absent. This result does not rule out COVID-19 in the patient, as the sensitivity of the test depends o n the timing of the specimen collection and the quality of the specim en. Result should be correlated with patient's history and clinical presentat ion. ----ADDITIONAL INFORMATION---- This molecular amplification test was pe rformed using the Aptima SARS-CoV-2 assay ([employer] on the [employer]ro[employer] tem under emergency use authorization (EUA) by the U.S. Food and Drug Administ ration. Fact sheets for this EUA assay can be fo und at the following links: For Healthcare Providers: https://www.[employer] a.gov/media/690389/download For Patients: https://www.fda.gov/media/ 011128/download Specimen Anatomical Collection Method Collection Time Receive d Time (Source) Location / / Volume Laterality Varies 03/12/2021 11:00 03/12/2021 (Nasopharynx) AM MECHANICAL CAR CHECKER 11:05 AM MECHANICAL CAR CHECKER Nunu Sanches P.A.-C., M.S. LAB MICROBIOLOGY - GENE [facility] ORDERABLES Performing Organization Address City/State/ZIP Code Phon e Number [facility]- [address] [place] [address] [place] [address] System in [address] [place] ARTL CATH/CNULA MONITOR PERC, LDA ANE ARTERIAL LINE INSERTION (03/12/2021 10:45 AM MECHANICAL CAR CHECKER) Narrative Barrera To M.D. - 2020 10:45 AM MECHANICAL CAR CHECKER Barrera To M.D. ? 03/12/2021 ??6:09 PM [...] SURGICAL ORDERABLES Patient Status (03/12/2021 7:10 AM MECHANICAL CAR CHECKER) athologist Signature FIO2 0.50 0.21=AIR 03/12/2021 7:37 MKTO AM MECHANICAL CAR CHECKER Specimen Anatomical Collection Method Collection Time Receive d Time (Source) Location / / Volume Laterality Blood 03/12/2021 7:10 AM 7:30 MECHANICAL CAR CHECKER AM MECHANICAL CAR CHECKER Nunu Sanches P.A.-C., M.S. LAB BLOOD NON ADD-ON Performing Organization Address City/State/ZIP Code Phon e Number [facility]- [address] [place] [phone] [place] [address] System in [address] (ABNORMAL) Blood Gas with Coox, Arterial (03/12/2021 7:10 AM MECHANICAL CAR CHECKER) athologist Signature P O2 77 (L) 83 - 108 03/12/2021 MKTO mm Hg 7:37 AM MECHANICAL CAR CHECKER P CO2 20 (CL) 32 - 45 mm 03/12/2021 MKTO Hg 7:37 AM MECHANICAL CAR CHECKER pH 7.53 (H) 7.35 - 03/12/2021 MKTO 7.45 pH 7:37 AM MECHANICAL CAR CHECKER Base Excess -5 (L) -2 - 3 03/12/2021 MKTO mmol/L 7:37 AM MECHANICAL CAR CHECKER HCO3 17 (L) 22 - 26 03/12/2021 MKTO mmol/L 7:37 AM MECHANICAL CAR CHECKER Hemoglobin, B 7.6 (L) 11.6 - 03/12/2021 MKTO 15.0 g/dL 7:37 AM MECHANICAL CAR CHECKER O2Hb 95.2 94.0 - 03/12/2021 MKTO 98.0 % 7:37 AM MECHANICAL CAR CHECKER COHb 1.6 <3.0 % 03/12/2021 MKTO 7:37 AM MECHANICAL CAR CHECKER MetHb 0.0 <1.5 % 03/12/2021 MKTO 7:37 AM MECHANICAL CAR CHECKER CtO2 10.3 (L) 18.0 - 03/12/2021 MKTO 21.0 vol % 7:37 AM MECHANICAL CAR CHECKER Arterial R-Radial 03/12/2021 MKTO Sample Site 7:37 AM MECHANICAL CAR CHECKER Specimen Anatomical Collection Method Collection Time Receive d Time (Source) Location / / Volume Laterality Blood (Blood, 03/12/2021 7:10 AM 03/12/20 7:30 Arterial) MECHANICAL CAR CHECKER AM MECHANICAL CAR CHECKER Nunu Sanches P.A.-C., M.S. LAB BLOOD NON ADD-ON Performing Organization Address City/State/ZIP Code Phon e Number [facility]- [address] [place] [phone] [facility] [place] [address] System in [address] (ABNORMAL) Lactate, B (03/12/2021 7:10 AM MECHANICAL CAR CHECKER) P athologist Signature Lactate, B 9.3 (H) 0.5 - 2.2 03/12/2021 MKTO mmol/L 7:38 AM MECHANICAL CAR CHECKER Specimen Anatomical Collection Method Collection Time Receive d Time (Source) Location / / Volume Laterality Blood 03/12/2021 7:10 AM 7:30 MECHANICAL CAR CHECKER AM MECHANICAL CAR CHECKER Nunu Sanches P.A.-C., M.S. LAB BLOOD NON ADD-ON Performing Organization Address City/[facility] Phon e Number [facility]- [address] [place] [phone] [place] [address] System in [address] Bacteria / Raudel Culture, Blood #2 (03/12/2021 7:10 AM MECHANICAL CAR CHECKER) [facility] Method Time Signature Bacteria/Adriana No growth 03/17/2021 [facility] da Culture, after 5 8:05 AM MECHANICAL CAR CHECKER Blood day/s of incubation. Specimen (Source) Anatomical Collection Method Collection Time Re ceived Time Location / / Volume Laterality Blood (Blood, 03/12/2021 7:10 03/12/2021 7:31 Peripheral Draw) AM MECHANICAL CAR CHECKER AM MECHANICAL CAR CHECKER Comment: Specimen Source Site: Blood Nunu Sanches P.A.-C. M.S. LAB MICROBIOLOGY - GENE RAL ORDERABLES Performing Organization Address City/[facility] Phon e Number [facility]- [address] [place] [phone] [place] [address] System in [address] DX Chest Portable 1 View (03/12/2021 6:24 AM MECHANICAL CAR CHECKER) Anatomical Region Laterality Modality Chest, Thoracic RST LOS, Thoracic ARZ LOS, Thoracic N/A Digital Radiography FLA LOS Specimen (Source) Anatomical Collection Method Collection Time Re ceived Time Location / / Volume Laterality 03/12/2021 7:25 AM MECHANICAL CAR CHECKER Impressions 03/12/2021 7:27 AM MECHANICAL CAR CHECKER Large right pleural effusion and right-sided consolidation. Centrally obstructing process within bro nchus is not excluded. Narrative 03/12/2021 7:27 AM MECHANICAL CAR CHECKER EXAM: DX CHEST PORTABLE 1 VIEW COMPARISON: [...] PROCEDURES (ABNORMAL) Microscopic Automated (03/12/2021 6:23 AM MECHANICAL CAR CHECKER) athologist Signature White Blood Occ-3 /hpf 03/12/2021 MKTO Cells 7:18 AM MECHANICAL CAR CHECKER Comment: ----REFERENCE VALUE---- Males: 0-3 Females: 0-10 Unknown: 0-10 Red Blood Cells 3-10 (A) 0 - 2 /hpf 03/12/2021 7:18 AM MECHANICAL CAR CHECKER MKTO Dysmorphic Red Blood Cells <=25 <=25 % 03/12/2021 7: 18 AM MECHANICAL CAR CHECKER MKTO Hyaline Casts 4-10 /lpf 03/12/2021 7:18 AM MECHANICAL CAR CHECKER MKT O Squamous Cells Occ-3 /hpf 03/12/2021 7:18 AM MECHANICAL CAR CHECKER MK TO Specimen Anatomical Collection Method Collection Time Receive d Time (Source) Location / / Volume Laterality Urine 03/12/2021 6:23 AM 1 6:47 MECHANICAL CAR CHECKER AM MECHANICAL CAR CHECKER Nunu Sanches P.A.-C., M.S. LAB URINE ORDERABLES Performing Organization Address City/State/ZIP Code Phon e Number [facility]- [address] [place] [phone] [facility] [place] [address] System in [address] MRSA PCR, Nasal (03/12/2021 6:23 AM MECHANICAL CAR CHECKER) athologist Signature MRSA Screen, Negative Negative 03/12/2021 MKTO Nasal by PCR 10:50 AM MECHANICAL CAR CHECKER Specimen Anatomical Collection Method Collection Time Receive d Time (Source) Location / / Volume Laterality Swab (Nares) 03/12/2021 6:23 AM 6:47 MECHANICAL CAR CHECKER AM MECHANICAL CAR CHECKER Nunu Sanches P.A.-C., M.S. LAB MICROBIOLOGY - GENE RAL ORDERABLES Performing Organization Address City/[facility] Phon e Number [facility]- [address] [place] [phone] [facility] [place] [address] System in [address] (ABNORMAL) Urinalysis with Microscopic if Indicated (03/12/2021 6:23 AM MECHANICAL CAR CHECKER) P athologist Signature Source Urine, 03/12/2021 MKTO Urine, 6:56 AM MECHANICAL CAR CHECKER Clean Catch Clarity Clear Clear 03/12/2021 MKTO 6:56 AM MECHANICAL CAR CHECKER Color Priscilla 03/12/2021 MKTO 6:56 AM MECHANICAL CAR CHECKER Comment: ----REFERENCE VALUE---- Colorless Yellow Priscilla Blood Negative Negative 03/12/2021 6:56 AM MECHANICAL CAR CHECKER MKTO Nitrite Negative Negative 03/12/2021 6:56 AM MECHANICAL CAR CHECKER MKTO Leukocyte Esterase Small (A) Negative 03/12/2021 6:56 AM CS T MKTO Protein Trace mg/dL 03/12/2021 6:56 AM MECHANICAL CAR CHECKER MKTO Comment: ----REFERENCE VALUE---- Negative Trace Glucose Negative Negative mg/dL 03/12/2021 6:56 AM MECHANICAL CAR CHECKER MK TO Ketone Trace (A) Negative mg/dL 03/12/2021 6:56 AM MECHANICAL CAR CHECKER MK TO Bilirubin Moderate (A) Negative 03/12/2021 6:56 AM MECHANICAL CAR CHECKER MKTO pH 6.0 5.0 - 8.0 03/12/2021 6:56 AM MECHANICAL CAR CHECKER MKTO Specific [place] 1.016 1.001 - 1.035 03/12/2021 6:56 AM MECHANICAL CAR CHECKER MKTO Urobilinogen 1.0 0.2 - 1.0 mg/dL 03/12/2021 6:56 AM CS T MKTO Specimen Anatomical Collection Method Collection Time Receive d Time (Source) Location / / Volume Laterality Urine (Urine, 03/12/2021 6:23 AM 03/12/20 6:47 Clean Catch) MECHANICAL CAR CHECKER AM MECHANICAL CAR CHECKER Nunu Sanches P.A.-C., M.S. LAB URINE ORDERABLES Performing Organization Address City/State/ZIP Code Phon e Number [facility]- [address] [place] [address] [facility] [place] [address] System in [place] [address] [facility] (ABNORMAL) Drug Screen Urine (03/12/2021 6:23 AM MECHANICAL CAR CHECKER) P athologist Signature Amphetamines, Negative Negative 03/12/2021 MKTO U 7:18 AM MECHANICAL CAR CHECKER Comment: ----ADDITIONAL INFORMATION---- Nick Setter's Cutoff: 500 ng/mL Barbiturates, U Negative Negative 03/12/2021 7:18 AM MECHANICAL CAR CHECKER M KTO Comment: ----ADDITIONAL INFORMATION---- Nick Setter's Cutoff: 200 ng/mL Benzodiazepines, U Negative Negative 03/12/2021 7:18 AM CS T DARRENTO Comment: ----ADDITIONAL INFORMATION---- Nick Setter's Cutoff: 150 ng/mL Buprenorphine, U Negative Negative 03/12/2021 7:18 AM MECHANICAL CAR CHECKER MKTO Comment: ----ADDITIONAL INFORMATION---- Nick Setter's Cutoff: 10 ng/mL Cocaine, U Negative Negative 03/12/2021 7:18 AM MECHANICAL CAR CHECKER MKTO Comment: ----ADDITIONAL INFORMATION---- Nick Setter's Cutoff: 150 ng/mL Methadone, U Negative Negative 03/12/2021 7:18 AM MECHANICAL CAR CHECKER MKTO Comment: ----ADDITIONAL INFORMATION---- Nick Setter's Cutoff: 200 ng/mL Methamphetamines, U Negative Negative 03/12/2021 7:[address] [place] Comment: ----ADDITIONAL INFORMATION---- Nick Setter's Cutoff: 500 ng/mL Opiates, U Negative Negative 03/12/2021 7:18 AM MECHANICAL CAR CHECKER MKTO Comment: ----ADDITIONAL INFORMATION---- Nick Setter's Cutoff: 100 ng/mL Oxycodone, U Unconfirmed Positive (A) Negative 03/12/2021 7 :18 AM MECHANICAL CAR CHECKER MKTO Comment: ----ADDITIONAL INFORMATION---- Nick Setter's Cutoff: 100 ng/mL Phencyclidine, U Negative Negative 03/12/2021 7:18 AM MECHANICAL CAR CHECKER MKTO Comment: ----ADDITIONAL INFORMATION---- Nick Setter's Cutoff: 25 ng/mL Propoxyphene, U Negative Negative 03/12/2021 7:18 AM MECHANICAL CAR CHECKER M KTO Comment: ----ADDITIONAL INFORMATION---- Nick Setter's Cutoff: 300 ng/mL Tetrahydrocannabinol, U Unconfirmed Positive Negative 03/12 7:18 AM MKTO (A) MECHANICAL CAR CHECKER Comment: ----ADDITIONAL INFORMATION---- Nick Setter's Cutoff: 50 ng/mL Tricyclic Antidepressants, U Negative Negative 03/12/2021 7:18 AM MECHANICAL CAR CHECKER MKTO Comment: ----ADDITIONAL INFORMATION---- Nick Setter's Cutoff: 300 ng/mL THE ABOVE DRUG SCREEN PANEL IS FOR MED ICAL PURPOSES ONLY Specimen Anatomical Collection Method Collection Time Receive d Time (Source) Location / / Volume Laterality Urine (Urine, 03/12/2021 6:23 AM 03/12/20 6:47 Clean Catch) MECHANICAL CAR CHECKER AM MECHANICAL CAR CHECKER Nunu Sanches P.A.-C., M.S. LAB URINE ORDERABLES Performing Organization Address City/[facility] Phon e Number [phone] [place] [address] [place] [address] System in [address] HCV Ab w/Reflex to HCV PCR, Serum (03/12/2021 5:58 AM MECHANICAL CAR CHECKER) [facility] HCV Ab, S Negative Negative 03/13/2021 [facility] 9:25 AM MECHANICAL CAR CHECKER Comment: [id number] ratio is <1.00 . Specimen (Source) Anatomical Collection Method Collection Time Re ceived Time Location / / Volume Laterality Blood (Blood, 03/12/2021 5:58 03/13/2021 7:17 Peripheral Draw) AM MECHANICAL CAR CHECKER AM MECHANICAL CAR CHECKER Ivan Lazo D.O. LAB MICROBIOLOGY - BLOOD ORD ERABLES Performing Organization Address City/State/ZIP Code Phon e Number [facility] [address] [place] [address] [place] [address] CENTER [facility] [place] [address] Laboratory Medicine and Pathology [address] [place] Hepatitis A IgM Ab, Serum (03/12/2021 5:58 AM MECHANICAL CAR CHECKER) athologist [facility] Hepatitis A Negative Negative 03/13/2021 [facility] IgM Ab, S 9:50 AM MECHANICAL CAR CHECKER Comment: Result does not exclude the possibility of exposure to hepatitis A virus. ??Antibody level duri ng early infection stage may be below the limit of detectio n of the assay. Specimen (Source) Anatomical Collection Method Collection Time Re ceived Time Location / / Volume Laterality Blood (Blood, 03/12/2021 5:58 03/13/2021 7:18 Peripheral Draw) AM MECHANICAL CAR CHECKER AM MECHANICAL CAR CHECKER Ivan Lazo D.O. LAB MICROBIOLOGY - BLOOD ORD ERABLES Performing Organization Address City/[facility]/ZIP [facility] Phon e Number [facility] [address] [place] [address] [address] [facility] [place] [address] Laboratory Medicine and Pathology [address] [place] [address] Dr. [place]AP[place] Hepatitis B Core IgM Ab (03/12/2021 5:58 AM MECHANICAL CAR CHECKER) P athologist Signature HBc IgM Ab, S Negative Negative 03/13/2021 [facility] 9:12 AM MECHANICAL CAR CHECKER Specimen (Source) Anatomical Collection Method Collection Time Re ceived Time Location / / Volume Laterality Blood (Blood, 03/12/2021 5:58 03/13/2021 7:17 Peripheral Draw) AM MECHANICAL CAR CHECKER AM MECHANICAL CAR CHECKER Ivan Lazo D.O. LAB MICROBIOLOGY - BLOOD ORD ERAPREMA Performing Organization Address City/[facility]/ZIP Code Phon e Number [facility] [address] [place] [address] [address] [facility] [place] [address] Laboratory Medicine and Pathology [address] [place] [address] Dr. [place]AP[place] Hepatitis B Surface Antigen (03/12/2021 5:58 AM MECHANICAL CAR CHECKER) Patholo gist Method Time Signature HBs Antigen, Nonreactive Nonreactive 03/12/2021 MKTO S 7:43 AM MECHANICAL CAR CHECKER Comment: Biotin has been identified by the chantelle lockett as a potential interfering substance. ??Higher concentr ations of biotin may be found in multivitamins, hair/nail supple ments, and workout supplements. ??If the result does not ma [facility] clinical observations, repeat testing after patient refrains fr om the use of supplements for at least 12 hours. Specimen (Source) Anatomical Collection Method Collection Time Re ceived Time Location / / Volume Laterality Blood (Blood, 03/12/2021 5:58 03/12/2021 6:10 Peripheral Draw) AM MECHANICAL CAR CHECKER AM MECHANICAL CAR CHECKER Ivan Lazo D.O. LAB MICROBIOLOGY - BLOOD ORD ERABLES Performing Organization Address City/[facility]/ZIP Code Phon e Number [address] [address] [place] [address] System in [address] (ABNORMAL) Ammonia (03/12/2021 5:58 AM MECHANICAL CAR CHECKER) P athologist Signature Ammonia, P 127 (H) <=51 03/12/2021 MKTO mcmol/L 6:33 AM MECHANICAL CAR CHECKER Specimen Anatomical Collection Method Collection Time Receive d Time (Source) Location / / Volume Laterality Blood (Blood, 03/12/2021 5:58 AM 03/12/20 6:09 Venous) MECHANICAL CAR CHECKER AM MECHANICAL CAR CHECKER Ivan Lazo D.O. LAB BLOOD NON ADD-ON Performing Organization Address City/[facility] Phon e Number [address] [address] [place] [address] System in [address] (ABNORMAL) Calcium, Ionized (03/12/2021 5:57 AM MECHANICAL CAR CHECKER) athologist Signature Calcium, 3.74 (L) 4.65 - 03/12/2021 MKTO Ionized, B 5.30 mg/dL 6:21 AM MECHANICAL CAR CHECKER Specimen Anatomical Collection Method Collection Time Receive d Time (Source) Location / / Volume Laterality Blood 03/12/2021 5:57 AM 6:10 MECHANICAL CAR CHECKER AM MECHANICAL CAR CHECKER Nunu Sanches P.A.-C., M.S. LAB BLOOD NON ADD-ON Performing Organization Address City/[facility]/ZIP Code Phon e Number [address] [address] [place] [address] (ABNORMAL) pH (03/12/2021 5:57 AM MECHANICAL CAR CHECKER) P athologist Signature pH 7.63 (H) 7.35 - 7.45 03/12/2021 MKTO pH 6:21 AM MECHANICAL CAR CHECKER Specimen Anatomical Collection Method Collection Time Receive d Time (Source) Location / / Volume Laterality Blood 03/12/2021 5:57 AM 6:10 MECHANICAL CAR CHECKER AM MECHANICAL CAR CHECKER Nunu Sanches P.A.-C., M.S. LAB HISTORICAL ORDERS Performing Organization Address City/[facility]/ZIP Code Phon e Number [address] [address] [place] [address] (ABNORMAL) Lactate, B (03/12/2021 5:57 AM MECHANICAL CAR CHECKER) P athologist Signature Lactate, B 5.6 (H) 0.5 - 2.2 03/12/2021 MKTO mmol/L 6:21 AM MECHANICAL CAR CHECKER Specimen Anatomical Collection Method Collection Time Receive d Time (Source) Location / / Volume Laterality Blood 03/12/2021 5:57 AM 6:10 MECHANICAL CAR CHECKER AM MECHANICAL CAR CHECKER Nunu Sanches P.A.-C., M.S. LAB BLOOD NON ADD-ON Performing Organization Address City/[facility]/ZIP Code Phon e Number [address] [address] [place] [address] S-TSH (Thyroid-Stimulating Hormone - Sensitive) (03/12/2021 5:57 AM MECHANICAL CAR CHECKER) P athologist Signature TSH, Sensitive 1.1 0.3 - 4.2 03/12/2021 MKTO mIU/L 7:44 AM MECHANICAL CAR CHECKER Specimen Anatomical Collection Method Collection Time Receive d Time (Source) Location / / Volume Laterality Blood (Blood, 03/12/2021 5:57 AM 03/12/20 6:10 Venous) MECHANICAL CAR CHECKER AM MECHANICAL CAR CHECKER Nunu Sanches P.A.-C., M.S. LAB BLOOD ADD-ON Performing Organization Address City/[facility]/ZIP Code Phon e Number [address] [address] [place] [address] System in [address] Salicylate Level (03/12/2021 5:57 AM MECHANICAL CAR CHECKER) P athologist Signature Salicylate, P <0.3 <30.0 mg/dL 03/12/2021 [facility] 6:50 AM MECHANICAL CAR CHECKER Specimen Anatomical Collection Method Collection Time Receive d Time (Source) Location / / Volume Laterality Blood (Blood, 03/12/2021 5:57 AM 03/12/20 21 6:10 Venous) MECHANICAL CAR CHECKER AM MECHANICAL CAR CHECKER Nunu Sanches P.A.-C., M.S. LAB BLOOD ADD-ON Performing Organization Address City/[facility] Phon e Number [address] [address] [place] [address] Acetaminophen Level (03/12/2021 5:57 AM MECHANICAL CAR CHECKER) Patholo gist Method Time Signature Acetaminophen, <7 Therapeutic 03/12/2021 [facility] P Range: 10-30 6:50 AM MECHANICAL CAR CHECKER mcg/mL Specimen Anatomical Collection Method Collection Time Receive d Time (Source) Location / / Volume Laterality Blood (Blood, 03/12/2021 5:57 AM 03/12/20 21 6:10 Venous) MECHANICAL CAR CHECKER AM MECHANICAL CAR CHECKER Nunu Sanches P.A.-C., M.S. LAB BLOOD ADD-ON Performing Organization Address City/[facility] Phon e Number [address] [address] [place] [address] hCG (Human Chorionic Gonadotropin), Quantitative, (03/12/2021 5:57 AM MECHANICAL CAR CHECKER) P athologist Signature HCG, <0.5 <5 IU/L 03/12/2021 [facility] Quantitative, 6:55 AM MECHANICAL CAR CHECKER , P Comment: Biotin has been identified by the chantelle lockett as a potential interfering substance. ??Higher concentr ations of biotin may be found in multivitamins, hair/nail supple ments, and workout supplements. ??If the result does not ma [facility] clinical observations, repeat testing after patient refrains fr om the use of supplements for at least 12 hours. Specimen Anatomical Collection Method Collection Time Receive d Time (Source) Location / / Volume Laterality Blood (Blood, 03/12/2021 5:57 AM 03/12/20 6:10 Venous) MECHANICAL CAR CHECKER AM MECHANICAL CAR CHECKER Nunu Sanches P.A.-C., M.S. LAB BLOOD ADD-ON Performing Organization Address City/[facility] Phon e Number [facility]- [address] [place] [address] [facility] [place] [phone] System in [address] Ethanol Level, Serum (03/12/2021 5:57 AM MECHANICAL CAR CHECKER) athologist Signature Ethanol, P <10 <10 mg/dL 03/12/2021 6:50 MKTO AM MECHANICAL CAR CHECKER Specimen Anatomical Collection Method Collection Time Receive d Time (Source) Location / / Volume Laterality Blood (Blood, 03/12/2021 5:57 AM 03/12/20 6:10 Venous) MECHANICAL CAR CHECKER AM MECHANICAL CAR CHECKER Nunu Sanches P.A.-C., M.S. LAB BLOOD NON ADD-ON Performing Organization Address [facility] Phon e Number [address] [address] [place] [facility] [place] [phone] (ABNORMAL) NT-Pro B-Type Natriuretic Peptide (BNP) (03/12/2021 5:57 AM MECHANICAL CAR CHECKER) athologist Signature NT-Pro BNP 1032 (H) <=140 pg/mL 03/12/2021 MKTO 7:44 AM MECHANICAL CAR CHECKER Comment: NT-proBNP values less than 300 pg/mL [...] supplements. ??If the result does not ma [facility] clinical observations, repeat testing after patient refrains fr om the use of supplements for at least 12 hours. Specimen Anatomical Collection Method Collection Time Receive d Time (Source) Location / / Volume Laterality Blood (Blood, 03/12/2021 5:57 AM 03/12/20 6:10 Venous) MECHANICAL CAR CHECKER AM MECHANICAL CAR CHECKER Nunu Sanchse P.A.-C., M.S. LAB BLOOD ADD-ON Performing Organization Address City/[facility] Phon e Number [address] [address] [place] [address] System in [address] Lipase (03/12/2021 5:57 AM MECHANICAL CAR CHECKER) P athologist Signature Lipase, P 18 13 - 60 U/L 03/12/2021 6:50 MKTO AM MECHANICAL CAR CHECKER Specimen Anatomical Collection Method Collection Time Receive d Time (Source) Location / / Volume Laterality Blood (Blood, 03/12/2021 5:57 AM 03/12/20 6:10 Venous) MECHANICAL CAR CHECKER AM MECHANICAL CAR CHECKER Nunu Sanches P.A.-C., M.S. LAB BLOOD ADD-ON Performing Organization Address City/[facility] Phon e Number [facility]- [address] [place] [address] [place] [address] (ABNORMAL) Prothrombin Time (PT) (03/12/2021 5:57 AM MECHANICAL CAR CHECKER) Patholo gist Method Time Signature Prothrombin 25.3 (H) 9.4 - 12.5 03/12/2021 MKTO Time, P sec 6:26 AM MECHANICAL CAR CHECKER INR 2.2 0.9 - 1.1 03/12/2021 MK[facility] 6:26 AM MECHANICAL CAR CHECKER Comment: ----ADDITIONAL INFORMATION---- Standard intensity warfarin therapeutic range: 2.0 to 3.0 ?? High intensity warfarin therapeutic rang e: 2.5 to 3.5 Specimen Anatomical Collection Method Collection Time Receive d Time (Source) Location / / Volume Laterality Blood (Blood, 03/12/2021 5:57 AM 03/12/20 6:10 Venous) MECHANICAL CAR CHECKER AM MECHANICAL CAR CHECKER Nunu Sanches P.A.-C., M.S. LAB BLOOD ADD-ON Performing Organization Address City/[facility]/ZIP Code Phon e Number [address] [address] [place] [address] System in [address] (ABNORMAL) Phosphorus Inorganic (03/12/2021 5:57 AM MECHANICAL CAR CHECKER) P athologist Signature Phosphorus 1.9 (L) 2.5 - 4.5 03/12/2021 MKTO (Inorganic), P mg/dL 6:58 AM MECHANICAL CAR CHECKER Specimen Anatomical Collection Method Collection Time Receive d Time (Source) Location / / Volume Laterality Blood (Blood, 03/12/2021 5:57 AM 03/12/20 6:10 Venous) MECHANICAL CAR CHECKER AM MECHANICAL CAR CHECKER Nunu Sanches P.A.-C., M.S. LAB BLOOD ADD-ON Performing Organization Address City/[facility] Phon e Number [address] [address] [place] [address] System in [address] (ABNORMAL) Magnesium (03/12/2021 5:57 AM MECHANICAL CAR CHECKER) P athologist Signature Magnesium, P 1.1 (L) 1.7 - 2.3 03/12/2021 MKTO mg/dL 6:58 AM MECHANICAL CAR CHECKER Specimen Anatomical Collection Method Collection Time Receive d Time (Source) Location / / Volume Laterality Blood (Blood, 03/12/2021 5:57 AM 03/12/20 6:10 Venous) MECHANICAL CAR CHECKER AM MECHANICAL CAR CHECKER Nunu Sanches P.A.-C., M.S. LAB BLOOD ADD-ON Performing Organization Address City/[facility]/ZIP Code Phon e Number [address] [address] [place] [address] System in [place] [address] (ABNORMAL) Comprehensive Metabolic Panel (03/12/2021 5:57 AM MECHANICAL CAR CHECKER) P athologist Signature Potassium, P 3.0 (L) 3.6 - 5.2 03/12/2021 MK[facility] mmol/L 6:50 AM MECHANICAL CAR CHECKER Sodium, P 132 (L) 135 - 145 03/12/2021 [facility] mmol/L 6:50 AM MECHANICAL CAR CHECKER Chloride, P 94 (L) 98 - 107 03/12/2021 [facility] mmol/L 6:50 AM MECHANICAL CAR CHECKER Bicarbonate, P 17 (L) 22 - 29 03/12/2021 MK[facility] mmol/L 6:50 AM MECHANICAL CAR CHECKER Anion Gap, P 21 (H) 7 - 15 03/12/2021 [facility] 6:50 AM MECHANICAL CAR CHECKER BUN (Blood Urea 8 6 - 21 03/12/2021 MK[facility] Nitrogen), P mg/dL 6:50 AM MECHANICAL CAR CHECKER Creatinine 0.64 0.59 - 03/12/2021 [facility] 1.04 mg/dL 6:50 AM MECHANICAL CAR CHECKER eGFR-Black/Afri >90 >=60 03/12/2021 MK[facility] can [place] mL/min/BSA 6:50 AM MECHANICAL CAR CHECKER Comment: ----ADDITIONAL INFORMATION---- Estimated GFR calculated using the 2009 CKD_EPI creatinine equation. eGFR Non-Black/ >90 >=60 mL/min/BSA 03/12/2021 6:50 AM MECHANICAL CAR CHECKER MKTO Comment: ----ADDITIONAL INFORMATION---- Estimated GFR calculated using the 2009 CKD_EPI creatinine equation. Calcium, Total, P 8.0 (L) 8.6 - 10.0 mg/dL 03/12/2021 6:50 AM MECHANICAL CAR CHECKER MKTO Glucose, P 118 70 - 140 mg/dL 03/12/2021 6:50 AM MECHANICAL CAR CHECKER M KTO Protein, Total, P 5.6 (L) 6.3 - 7.9 g/dL 03/12/2021 6:50 A M MECHANICAL CAR CHECKER MKTO Albumin, P 2.9 (L) 3.5 - 5.0 g/dL 03/12/2021 6:50 AM MECHANICAL CAR CHECKER M KTO Aspartate Aminotransferase 45 (H) 8 - 43 U/L 03/12/2021 6 :50 AM MECHANICAL CAR CHECKER MKTO (AST), P Alkaline Phosphatase, P 126 (H) 35 - 104 U/L 03/12/2021 6: 50 AM MECHANICAL CAR CHECKER MKTO Alanine Aminotransferase 13 7 - 45 U/L 03/12/2021 6:5 0 AM MECHANICAL CAR CHECKER MKTO (ALT), P Bilirubin, Total, P 6.6 (H) <=1.2 mg/dL 03/12/2021 6:50 AM MECHANICAL CAR CHECKER MKTO Specimen Anatomical Collection Method Collection Time Receive d Time (Source) Location / / Volume Laterality Blood (Blood, 03/12/2021 5:57 AM 03/12/20 6:10 Venous) MECHANICAL CAR CHECKER AM MECHANICAL CAR CHECKER Nunu Sanches P.A.-C., M.S. LAB BLOOD ADD-ON Performing Organization Address City/State/ZIP Code Phon e Number [facility]- [address] [place] [phone] [place] [address] [place] [address] System in [address] (ABNORMAL) CBC without Differential (03/12/2021 5:57 AM MECHANICAL CAR CHECKER) [facility] gist Method Time Signature Hemoglobin 7.7 (L) 11.6 - 03/12/2021 [facility] 15.0 g/dL 6:26 AM MECHANICAL CAR CHECKER Hematocrit 22.6 (L) 35.5 - 03/12/2021 MK[facility] 44.9 % 6:26 AM MECHANICAL CAR CHECKER Erythrocytes 2.12 (L) 3.92 - 03/12/2021 [facility] 5.13 6:26 AM MECHANICAL CAR CHECKER x10(12)/L MCV 106.6 (H) 78.2 - 03/12/2021 [facility] 97.9 fL 6:26 AM MECHANICAL CAR CHECKER RBC Distrib Width 15.7 12.2 - 03/12/2021 [facility] 16.1 % 6:26 AM MECHANICAL CAR CHECKER Platelet Count 144 (L) 157 - 371 03/12/2021 [facility] x10(9)/L 6:26 AM MECHANICAL CAR CHECKER Leukocytes 12.7 (H) 3.4 - 9.6 03/12/2021 [facility] x10(9)/L 6:26 AM MECHANICAL CAR CHECKER Specimen Anatomical Collection Method Collection Time Receive d Time (Source) Location / / Volume Laterality Blood (Blood, 03/12/2021 5:57 AM 03/12/20 21 6:10 Venous) MECHANICAL CAR CHECKER AM MECHANICAL CAR CHECKER Nunu Sanches P.A.-C., M.S. LAB BLOOD ADD-ON Performing Organization Address City/[facility]/ZIP [facility] Phon e Number [facility]- [address] [place] [phone] [place] [address] System in [address] Bacteria / Raudel Culture, Blood #1 (03/12/2021 5:57 AM MECHANICAL CAR CHECKER) Patholo gist Method Time Signature Bacteria/Adriana No growth 03/17/2021 MK[facility] da Culture, after 5 7:05 AM MECHANICAL CAR CHECKER Blood day/s of incubation. Specimen (Source) Anatomical Collection Method Collection Time Re ceived Time Location / / Volume Laterality Blood (Blood, 03/12/2021 5:57 03/12/2021 6:10 Peripheral Draw) AM MECHANICAL CAR CHECKER AM MECHANICAL CAR CHECKER Comment: Specimen Source Site: Blood Nunu Sanches P.A.-C., M.S. LAB MICROBIOLOGY - GENE RAL ORDERABLES Performing Organization Address City/[facility]/ZIP [facility] Phon e Number [facility]- [address] [place] [phone] [place] [address] System in [address] Glucose, POCT (03/12/2021 5:48 AM MECHANICAL CAR CHECKER) P athologist Signature Glucose, POCT, 120 70 - 140 03/12/2021 [facility] B mg/dL 5:48 AM MECHANICAL CAR CHECKER Specimen Anatomical Collection Method Collection Time Receive d Time (Source) Location / / Volume Laterality Blood 03/12/2021 5:48 AM 7:25 MECHANICAL CAR CHECKER AM MECHANICAL CAR CHECKER Generic Rals LAB POCT ORDERABLES-MANUAL Performing Organization Address [facility] Phon e Number [facility]- [address] [place] [phone] [place] [address] System in [address] documented in this encounter Visit Diagnoses [...] tablet 650 mg Given 03/19/2021 5:57 PM MECHANICAL CAR CHECKER 650 mg (TYLENOL) 650 mg, oral, Once, On Wed03/19/21 at 1800, For 1 dose albumin human 25 % injection 25 g New 03/19/2021 6:39 AM MECHANICAL CAR CHECKER 25 g 25 g, intravenous, Every 6 hours scheduled, First dose on Wed03/12/21 at 1400, If no infusion rate specified: Administer the 25% solution at 100 mL/hr New 03/19/2021 12:15 AM MECHANICAL CAR CHECKER 25 g New Bag 03/18/2021 6:32 PM MECHANICAL CAR CHECKER 25 g albumin human 5 % injection 12.5 g New 03/12/2021 8:49 AM MECHANICAL CAR CHECKER 12.5 g 12.5 g, intravenous, Every 1 hour, First dose on Wed03/12/21 at 0815, For 2 doses, If no infusion rate specified: Administer the 5% solution at 999 mL/hr or less if ICU/shock, otherwise infuse at 250 mL/hr. New 03/12/2021 8:48 AM MECHANICAL CAR CHECKER 12.5 g albumin human 5 % injection 25 g 03/13/2021 7:30 PM MECHANICAL [employer] 25 g 250 mL/hr 25 g, intravenous, Once, On [place] 03/13/21 at 1900, For 1 dose, If no infusion rate specified: Administer the 5% solution at 999 mL/hr or less if ICU/shock, otherwise infuse at 250 mL/hr. calcium chloride in NaCl 0.9% IVPB 1 g 03/12/2021 2:06 PM ME[employer]ICAL [employer]ER 1 g 240 mL/hr 1 g, intravenous, at 240 mL/hr, Administer over 15 Minutes, Once, On Wed03/12/21 at 1245, For 1 dose, Infuse each gram over at least 15 minutes. calcium gluc in NaCl, iso-osm IVPB 2 g 03/16/2021 5:53 AM ME[employer]ICAL [employer] 2 g 400 mL/hr 2 g, intravenous, at 400 mL/hr, Administer over 15 Minutes, Once, On Wed03/16/21 at 0530, For 1 dose calcium gluconate in NaCl (iso-osm) New Bag 03/12/2021 8:03 AM ME[employer]ICAL [employer]ER 1 g 200 mL/hr IVPB 1 g 1 g, intravenous, at 200 mL/hr, Administer over 15 Minutes, Once, On Wed03/12/21 at 0730, For 1 dose cefTRIAXone injection 1 g (ROCEPHIN) Given 03/19/2021 9:08 AM MECHANICAL CAR CHECKER 1 g 1 g, intravenous, Daily, First dose (after last modification) on Wed03/19/21 at 0900, If needed, reconstitute vial per package insert instructions. See IVAG for administration guidelines. , Drug Monitoring Program: Pharmacist to adjust medication dosing based on indication and drug clearance factors., Indications: sbp prophylaxis cefTRIAXone injection 2 g (ROCEPHIN) Given 03/18/2021 8:48 AM ME[employer]ICAL [employer]ER 2 g 2 g, intravenous, Daily, First dose (after last modification) on Wed03/18/21 at 0900, If needed, reconstitute vial per package insert instructions. See IVAG for administration guidelines. , Drug Monitoring Program: Pharmacist to adjust medication dosing based on indication and drug clearance factors., Indications: sbp prophylaxis ciprofloxacin tablet 500 mg (CIPRO) Given 03/24/2021 6:18 AM ME[employer]ICAL [employer]ER 500 mg 500 mg, oral, Daily before breakfast, First dose on [place] 03/20/21 at 0700, Take 2 hours before or 6 hours after antacids containing magnesium or aluminum, sucralfate, didanosine, polymeric phosphate binders, or products containing calcium, iron, or zinc., Drug Monitoring Program: Pharmacist to adjust medication dosing based on indication and drug clearance factors., Indications: Prophylaxis, medical Given 03/23/2021 6:34 AM MECH[employer]ICAL CAR CHECKER 500 mg Given 03/22/2021 7:02 AM MECHANICAL CAR CHECKER 500 mg dexmedeTOMIDine 4 mcg/mL Rate/Dose Change 03/14/2021 9:18 0.2 mcg/k g/hr 2.71 mL/hr in NaCl 0.9% 100 mL AM MECH[employer]ICAL CAR CHECKER infusion (PRECEDEX) 0.2-1.5 mcg/kg/hr ? 54.2 kg [...] care unit Rate/Dose Verify 03/14/2021 9:00 AM MECH[employer]ICAL [employer]ER 0.4 mcg/kg/hr 5.42 mL/hr Rate/Dose Change 03/14/2021 8:53 AM MECH[employer]ICAL [employer]ER 0.4 mcg/kg/hr 5.42 mL/hr doxycycline 100 mg in NaCl 0.9% New Bag 03/12/2021 9:13 PM ME[employer]ICAL [employer] 100 mg 100 mL/hr IVPB (VIBRAMYCIN) 100 mg, intravenous, at 100 mL/hr, Administer over 60 Minutes, Every 12 hours scheduled, First dose on Wed03/12/21 at 0900, Mini-Bag Plus bag, Indications: Intra-abdominal infection, community acquired, Respiratory tract infection, healthcare associated New Bag 03/12/2021 8:59 AM ME[employer]ICAL [employer]ER 100 mg 100 mL/hr doxycycline 100 mg in NaCl 0.9% New Bag 03/17/2021 8:44 PM MECH[employer]ICAL [employer]ER 100 mg 100 mL/hr IVPB (VIBRAMYCIN) 100 mg, intravenous, at 100 mL/hr, Administer over 60 Minutes, Every 12 hours scheduled, First dose (after last modification) on [place] 03/13/21 at 0900, For 5 days, Mini-Bag Plus bag, Indications: Intra-abdominal infection, community acquired, Respiratory tract infection, healthcare associated New Bag 03/17/2021 11:08 AM ME[employer]ICAL [employer]ER 100 mg 100 mL/hr New Bag 03/16/2021 8:38 PM MECH[employer]ICAL [employer] CHECKER 100 mg 100 mL/hr folic acid tablet 1 mg Given 03/24/2021 8:52 AM MECH[employer]ICAL [employer]ER 1 mg 1 mg, oral, Daily, First dose on Wed03/13/21 at 1230 Given 03/23/2021 8:10 AM MECH[employer]ICAL CAR CHECKER 1 mg Given 03/22/2021 10:22 AM MECH[employer]ICAL CAR CHECKER 1 mg furosemide injection 20 mg (LASIX) Given 03/19/2021 9:08 AM MECH[employer]ICAL CAR CHECKER 20 mg 20 mg, intravenous, Every 24 hours scheduled, First dose on Wed03/14/21 at 1230, Adults: Doses less than 120 mg: IV push over 20 mg/minute. Doses 120 mg or greater: IVPB at 4 mg/minute. Peds/Neonates: Doses less than 120 mg over 0.5 mg/kg/minute. Doses 120 mg or greater: IVPB at 4 mg/minute. Given 03/18/2021 8:49 AM MECHANICAL CAR CHECKER 20 mg Given 03/17/2021 10:48 AM MECH[employer]ICAL CAR CHECKER 20 mg furosemide tablet 20 mg (LASIX) Given 03/24/2021 8:52 AM MECHANICAL CAR CHECKER 20 mg 20 mg, oral, Daily, First dose on [place] 03/20/21 at 0900 Given 03/23/2021 8:10 AM MECHANICAL CAR CHECKER 20 mg Given 03/22/2021 10:22 AM MECH[employer]ICAL [employer]ER 20 mg heparin (porcine) Given 03/15/2021 5:35 AM MECHANICAL CAR CHECKER 5,000 Units Left Upper Arm injection 5,000 Units (Back) 5,000 Units, subcutaneous, Every 8 hours scheduled, First dose on Wed03/12/21 at 0645 Given 03/14/2021 8:40 PM ME[employer]ICAL [employer]ER 5,000 Units Left Upper Arm (Back) Given 03/14/2021 2:51 PM MECH[employer]ICAL [employer]ER 5,000 Units Right Lower Abdomen iohexoL 300 mg iodine/mL solution 1-200 mL Given 03/12/2021 1:50 PM ME[employer]ICAL [employer] CHECKER 100 mL (OMNIPAQUE) 1-200 mL, intravenous, Once in imaging, contrast, Starting on Wed03/12/21 at 1346, For 1 dose, Dose per Radiant Medication Guidelines iohexoL 300 mg iodine/mL solution 1-200 mL Given 03/16/2021 2:37 AM ME[employer]ICAL [employer]ER 100 mL (OMNIPAQUE) 1-200 mL, intravenous, Once in imaging, contrast, for Ct exam, Starting on Wed03/16/21 at 0230, For 1 dose, Dose per Radiant Medication Guidelines ketamine injection (KETALAR) Given 03/12/2021 9:42 AM ME[employer]ICAL [employer]ER 30 mg Code/trauma/sedation medication, Starting on Wed03/12/21 at 0942 ketamine injection 60 mg (KETALAR) Given 03/12/2021 9:12 AM ME[employer]ICAL [employer]ER 20 mg 60 mg, intravenous, Once, On Wed03/12/21 at 0845, For 1 dose Given 03/12/2021 8:50 AM ME[employer]ICAL [employer]ER 20 mg lactulose (CHRONULAC) 200 g in sterile Given 03/12/2021 8:18 AM ME[employer]ICAL [employer]ER 1,000 mL water 1,000 mL enema 1,000 mL, rectal, Once, On Wed03/12/21 at 0615, For 1 dose, Total dose= 1000 mL; Instill ~ 300 mL at a time, and retain for 15-20 minutes each Rectal Use Only. Refrigerate. PROTECT FROM LIGHT. lactulose solution 30 g (CHRONULAC) Given 03/24/2021 8:52 AM ME[employer]ICAL [employer] 30 g 30 g, gastric tube, 3 times daily, First dose on Wed03/12/21 at 1400, Aim for 500 cc stool in 24 hours or 3-4 loose bowel movements per day Given 03/23/2021 9:49 PM ME[employer]ICAL [employer] 30 g Given 03/23/2021 2:04 PM ME[employer]ICAL [employer]ER 30 g LORazepam injection 1 mg (ATIVAN) 1 mg, intravenous, Every 4 hours PRN, se izures, Starting on Lu [place]ina 03/20/21 at 2120, For intravenous use, dilute with equal volume of 0.9% NS magnesium oxide tablet 400 mg (MAG-OX) Given 03/24/2021 6:18 AM ME[employer]ICAL [employer] 400 mg 400 mg, oral, 2 times daily before breakfast and dinner, First dose on 03/23/21 at 0700 Given 03/23/2021 3:41 PM ME[employer]ICAL [employer]ER 400 mg Given 03/23/2021 6:34 AM MECH[employer]ICAL CAR CHECKER 400 mg magnesium sulfate in D5W IVPB 1 g New Bag 03/15/2021 6:10 PM ME[employer]ICAL [employer] CHECKER 1 g 100 mL/hr 1 g, intravenous, at 100 mL/hr, Administer over 60 Minutes, Once, On 03/15/21 at 1800, For 1 dose, Over 1 hours. , Monitor the following for replacement: Magnesium magnesium sulfate in water IVPB 2 g New Bag 03/12/2021 8:03 AM ME[employer]ICAL [employer] CHECKER 2 g 25 mL/hr 2 g, intravenous, at 25 mL/hr, Administer over 120 Minutes, Once, On Wed03/12/21 at 0715, For 1 dose magnesium sulfate in water IVPB 2 g New Bag 03/15/2021 5:26 AM ME[employer]ICAL [employer] 2 g 25 mL/hr 2 g, intravenous, at 25 mL/hr, Administer over 120 Minutes, Once, On 03/15/21 at 0600, For 1 dose magnesium sulfate in water IVPB 2 g New Bag 03/16/2021 5:08 AM ME[employer]ICAL [employer] 2 g 25 mL/hr 2 g, intravenous, at 25 mL/hr, Administer over 120 Minutes, Once, On Wed03/16/21 at 0500, For 1 dose magnesium sulfate in New Bag 03/22/2021 4:18 PM ME[employer]ICAL [employer]ER 2 g 25 mL/hr Right Antecubital water IVPB 2 g 2 g, intravenous, at 25 mL/hr, Administer over 120 Minutes, Once, On 03/22/21 at 1530, For 1 dose magnesium sulfate in water IVPB Rate/Dose Change 03/12/2021 4:02 PM ME[employer]ICAL [employer]ER 50 mL/hr 4 g 4 g, intravenous, at 25 mL/hr, Administer over 240 Minutes, Once, On Wed03/12/21 at 1345, For 1 dose New Bag 03/12/2021 2:27 PM ME[employer]ICAL [employer]ER 4 g 25 mL/hr magnesium sulfate in water IVPB 4 g New Bag 03/19/2021 3:40 PM ME[employer]ICAL [employer] 4 g 25 mL/hr 4 g, intravenous, at 25 mL/hr, Administer over 240 Minutes, Once, On Wed03/19/21 at 1000, For 1 dose, Over 4 hours. melatonin tablet 3 mg Given 03/17/2021 2:30 AM ME[employer]ICAL [employer] 3 mg 3 mg, oral, Once, On Wed03/17/21 at 0230, For 1 dose melatonin tablet 6 mg Given 03/23/2021 9:49 PM ME[employer]ICAL [employer] 6 mg 6 mg, oral, Daily at bedtime, First dose (after last modification) on Wed03/17/21 at 2100 Given 03/23/2021 12:19 AM ME[employer]ICAL [employer]ER 6 mg Given 03/22/2021 12:48 AM ME[employer]ICAL CAR CHECKER 6 mg multivitamin (Adult MVI) 10 mL in NaCl New Bag 03/15/2021 8:06 AM ME[employer]ICAL CAR CHECKER 255 mL/hr 0.9% 500 mL IVPB intravenous, at 255 mL/hr, Administer over 2 Hours, Daily, First dose on [place] 03/13/21 at 0900, For 3 days, Protect from light. New Bag 03/14/2021 8:15 AM ME[employer]ICAL [employer] 255 mL/hr New Bag 03/13/2021 9:40 AM MECH[employer]ICAL CAR CHECKER 255 mL/hr NaCl 0.9% infusion Rate/Dose Verify 03/16/2021 12:00 AM 20 mL/hr 20 mL/hr 20-500 mL/hr, intravenous, ME[employer]ICAL [employer] CHECKER Once as needed, Between Units of Blood Products, Starting on Wed03/15/21 at 1218, For 1 dose, Infuse at the same rate as the blood infusion until tubing cleared. Nurse may reduce rate to 20 mL/hour or as otherwise directed until next blood infusion arrives then discontinue when infusion complete. Rate/Dose Verify 03/15/2021 9:00 PM ME[employer]ICAL [employer] 20 mL/hr 20 mL/hr Rate/Dose Verify 03/15/2021 8:00 PM MECH[employer]ICAL [employer] CHECKER 20 mL/hr 20 mL/hr naloxone injection 0.2 [...] mL/hr mcg/mL in D5W 250 mL AM MECH[employer]ICAL CAR CHECKER infusion 0-0.3 mcg/kg/min ? 54.2 kg Dosing weight (0-60.975 mL/hr, rounded to 0-60.98 mL/hr), intravenous, Continuous, Starting on Wed03/12/21 at 1100, Protect from light and avoid extravasation, Patient Type: Sepsis, Initiate at: 0.05 mcg/kg/min, Titrate at: 0.05 mcg/kg/min. every 5 min., Wean at: 0.01 mcg/kg/min. every 5 min., Goal: Other, Goal: MAP 60-65 New Bag 03/14/2021 10:03 PM ME[employer]ICAL [employer] CHECKER 0.01 mcg/kg/min 2.03 mL/hr Rate/Dose Change 03/13/2021 12:23 PM ME[employer]ICAL [employer] CHECKER 0.02 mcg/kg/min 4.07 mL/hr norepinephrine 16 mcg/mL in NaCl Rate/Dose 03/12/2021 0.07 14. 2 0.9% 250 mL infusion Change 10:01 AM MECH[employer]ICAL CAR CHECKER mcg/kg/min mL/hr Code/trauma/sedation continuous med, Starting on Wed03/12/21 at 0942 Rate/Dose Change 03/12/2021 9:53 AM ME[employer]ICAL [employer] CHECKER 0.08 mcg/kg/min 16.3 mL/hr Rate/Dose Change 03/12/2021 9:45 AM ME[employer]ICAL [employer] CHECKER 0.1 mcg/kg/min 20.3 mL/hr octreotide 2 mcg/mL in Rate/Dose Verify 03/13/2021 8:00 AM 25 mcg/hr 12.5 mL/hr NaCl 0.9% 250 mL infusion ME[employer]ICAL [employer] CHECKER (SandoSTATIN) 25 mcg/hr (12.5 mL/hr), intravenous, Continuous, Starting on Wed03/12/21 at 1000, Protect from light. Rate/Dose Verify 03/13/2021 7:00 AM ME[employer]ICAL [employer]ER 25 mcg/hr 12.5 mL/hr Rate/Dose Verify 03/13/2021 6:00 AM ME[employer]ICAL [employer] CHECKER 25 mcg/hr 12.5 mL/hr octreotide 2 mcg/mL in Rate/Dose Verify 03/16/2021 9:00 AM 25 mcg/hr 12.5 mL/hr NaCl 0.9% 250 mL infusion ME[employer]ICAL [employer] (SandoSTATIN) 25 mcg/hr (12.5 mL/hr), intravenous, Continuous, Starting on [place] 03/13/21 at 0845, For 72 hours, Protect from light. Rate/Dose Verify 03/16/2021 8:00 AM ME[employer]ICAL [employer] CHECKER 25 mcg/hr 12.5 mL/hr Rate/Dose Verify 03/16/2021 7:00 AM ME[employer]ICAL [employer] CHECKER 25 mcg/hr 12.5 mL/hr OLANZapine tablet 5 mg (ZyPREXA) Given 03/18/2021 9:29 PM ME[employer]ICAL [employer] CHECKER 5 mg 5 mg, oral, Daily at bedtime, First dose on Wed03/18/21 at 1730 OLANZapine tablet 5 mg (ZyPREXA) Given 03/22/2021 12:48 AM ME[employer]ICAL [employer] CHECKER 5 mg 5 mg, oral, Bedtime PRN, sleep, anxiety, Starting on Wed03/19/21 at 1830 Given 03/21/2021 1:11 AM MECH[employer]ICAL [employer] CHECKER 5 mg oxyCODONE IR tablet 5 mg (ROXICODONE) Given 03/21/2021 3:28 AM ME[employer]ICAL CAR CHECKER 5 mg 5 mg, oral, Every 4 hours PRN, moderate pain or score 4-6 of 10, severe pain or score 7-10 of 10, Starting on Wed03/14/21 at 1957 Given 03/20/2021 1:56 AM ME[employer]ICAL [employer] CHECKER 5 mg Given 03/16/2021 4:23 AM MECHANICAL CAR CHECKER 5 mg oxyCODONE IR tablet 5 mg (ROXICODONE) Given 03/22/2021 7:02 AM MECH[employer]ICAL CAR CHECKER 5 mg 5 mg, oral, Once as needed, moderate pain or score 4-6 of 10, severe pain or score 7-10 of 10, Starting on Wed03/22/21 at 0354, For [address] tablet 40 mg (PROTONIX) Given 03/24/2021 8:52 AM ME[employer]ICAL [employer] CHECKER 40 mg 40 mg, oral, 2 times daily, First dose on Wed03/19/21 at 2100, Swallow whole. Do NOT crush, chew, or split tablet. Given 03/23/2021 9:49 PM MECH[employer]ICAL [employer] CHECKER 40 mg Given 03/23/2021 8:09 AM MECHANICAL CAR CHECKER 40 mg pantoprazole injection 40 mg (PROTONIX) Given 03/12/2021 8:49 AM MECHANICAL CAR CHECKER 40 mg 40 mg, intravenous, Every 24 hours scheduled, First dose on Wed03/12/21 at 0900, Administer IV push over 2 minutes. Add 10 mL NS to 40 mg vial for a final concentration of 4 mg/mL. pantoprazole injection 40 mg (PROTONIX) Given 03/19/2021 9:08 AM MECHANICAL CAR CHECKER 40 mg 40 mg, intravenous, Every 12 hours scheduled, First dose (after last modification) on Wed03/12/21 at 2100, Administer IV push over 2 minutes. Add 10 mL NS to 40 mg vial for a final concentration of 4 mg/mL. Given 03/18/2021 8:49 AM MECH[employer]ICAL CAR CHECKER 40 mg Given 03/17/2021 8:34 PM MECHANICAL CAR CHECKER 40 mg phenylephrine injection Given 03/12/2021 9:46 AM MECHANICAL CAR CHECKER 100 mcg Code/trauma/sedation medication, Starting on Wed03/12/21 at 0946 phytonadione (vitamin K1) 10 mg in New Bag 03/16/2021 8:30 AM MECH[employer]ICAL CAR CHECKER 10 mg 51 mL/hr NaCl 0.9% IVPB (AQUA-MEPHYTON) 10 mg, intravenous, at 51 mL/hr, Administer over 60 Minutes, Daily, First dose on Wed03/14/21 at 1045, For 3 doses, Protect from light. New Bag 03/15/2021 9:18 AM MECH[employer]ICAL CAR CHECKER 10 mg 51 mL/hr New Bag 03/14/2021 11:34 AM MECHANICAL CAR CHECKER 10 mg 51 mL/hr phytonadione (vitamin K1) 10 mg in New Bag 03/16/2021 8:15 AM MECHANICAL CAR CHECKER 10 mg 51 mL/hr NaCl 0.9% IVPB (AQUA-MEPHYTON) 10 mg, intravenous, at 51 mL/hr, Administer over 60 Minutes, Once, On 03/16/21 at 0800, For 1 dose, Protect from light. phytonadione (vitamin K1) tablet 10 mg Given 03/23/2021 11:11 AM MECHANICAL CAR CHECKER 10 mg (MEPHYTON) 10 mg, oral, Once, On 03/23/21 at 1045, For 1 dose phytonadione (vitamin K1) tablet 5 mg Given 03/21/2021 8:[address] 5 mg (MEPHYTON) 5 mg, oral, Daily, First dose on Wed03/19/21 at 1300, For 3 doses Given 03/20/2021 10:15 AM MECHANICAL CAR CHECKER 5 mg Given 03/19/2021 1:56 PM MECHANICAL CAR CHECKER 5 mg phytonadione (vitamin K1) tablet 5 mg Given 03/22/2021 10:22 AM MECHANICAL CAR CHECKER 5 mg (MEPHYTON) 5 mg, oral, Daily, First dose (after last reorder) on 03/22/21 at 0900, For 3 doses piperacillin-tazobactam in dextrose New Bag 03/13/2021 5:34 AM MECHANICAL CAR CHECKER 3.375 g 100 mL/hr (iso-osm) IVPB 3.375 g (ZOSYN) 3.375 g, intravenous, at 100 mL/hr, Administer over 0.5 Hours, Every 6 hours scheduled, First dose on Wed03/12/21 at 0815, Drug Monitoring Program: Pharmacist to adjust medication dosing based on indication and drug clearance factors., Indications: Intra-abdominal infection, community acquired New Bag 03/12/2021 11:36 PM MECHANICAL CAR CHECKER 3.375 g 100 mL/hr New Bag 03/12/2021 6:14 PM MECHANICAL CAR CHECKER 3.375 g 100 mL/hr piperacillin-tazobactam in dextrose New Bag 03/17/2021 11:49 P M 3.375 g 100 mL/hr (iso-osm) IVPB 3.375 g (ZOSYN) ME[employer]ICAL [employer] CHECKER 3.375 g, intravenous, at 100 mL/hr, Administer over 0.5 Hours, Every 6 hours scheduled, First dose (after last modification) on [place] 03/13/21 at 1200, For 19 doses, Drug Monitoring Program: Pharmacist to adjust medication dosing based on indication and drug clearance factors., Indications: Intra-abdominal infection, community acquired New Bag 03/17/2021 6:25 PM MECHANICAL CAR CHECKER 3.375 g 100 mL/hr New Bag 03/17/2021 1:09 PM MECHANICAL CAR CHECKER 3.375 g 100 mL/hr potassium chloride ER [...] tablet 40 mEq Given 03/22/2021 4:19 PM MECHANICAL CAR CHECKER 40 mEq (KLORCON/K-TAB) 40 mEq, oral, Once, On 03/22/21 at 1415, For 1 dose, Swallow whole. Do NOT crush, chew, or split tablet. potassium chloride ER tablet 40 mEq Given 03/23/2021 8:09 AM MECHANICAL CAR CHECKER 40 mEq (KLORCON/K-TAB) 40 mEq, oral, Once, [...] 10 mEq New Bag 03/12/2021 9:15 AM MECHANICAL [employer] CHECKER 10 mEq 100 mL/hr 10 mEq, intravenous, at 100 mL/hr, Administer over 60 Minutes, Every 1 hour, First dose on Wed03/12/21 at 0715, For 2 doses, Peripheral Line: 10 mEq per bag over 1 hour each. New Bag 03/12/2021 8:03 AM MECHANICAL CAR CHECKER 10 mEq 100 mL/hr potassium chloride IVPB 10 mEq New Bag 03/14/2021 9:16 AM MECHANICAL [employer] CHECKER 10 mEq 100 mL/hr 10 mEq, intravenous, at 100 mL/hr, Administer over 60 Minutes, Every 1 hour, First dose on Wed03/14/21 at 0730, For 3 doses, Peripheral Line: 10 mEq per bag over 1 hour each. New Bag 03/14/2021 9:13 AM MECHANICAL CAR CHECKER 10 mEq 100 mL/hr New Bag 03/14/2021 8:10 AM MECHANICAL CAR CHECKER 10 mEq 100 mL/hr potassium chloride IVPB 10 mEq New Bag 03/18/2021 4:59 PM MECH[employer]ICAL [employer] CHECKER 10 mEq 100 mL/hr 10 mEq, intravenous, at 100 mL/hr, Administer over 60 Minutes, Every 1 hour, First dose on Wed03/18/21 at 1200, For 4 doses, Peripheral Line: 10 mEq per bag over 1 hour each. New Bag 03/18/2021 3:41 PM MECH[employer]ICAL [employer] CHECKER 10 mEq 100 mL/hr New Bag 03/18/2021 2:28 PM MECHANICAL CAR CHECKER 10 mEq 100 mL/hr potassium chloride IVPB 20 mEq in New Bag 03/12/2021 9:[address] 20 mEq 100 mL/hr 100 mL (premix) 20 mEq, intravenous, at 100 mL/hr, Administer over 60 Minutes, Every 1 hour, First dose on Wed03/12/21 at 1900, For 3 doses, Central Line with Telemetry: 20 mEq per bag over 1 hour each. New Bag 03/12/2021 8:08 PM ME[employer]ICAL [employer] CHECKER 20 mEq 100 mL/hr New Bag 03/12/2021 6:57 PM MECH[employer]ICAL [employer] CHECKER 20 mEq 100 mL/hr potassium chloride IVPB 20 mEq in New Bag 03/13/2021 3:[address] 20 mEq 100 mL/hr 100 mL (premix) 20 mEq, intravenous, at 100 mL/hr, Administer over 60 Minutes, Every 1 hour, First dose on Wed03/13/21 at 0300, For 2 doses, Central Line with Telemetry: 20 mEq per bag over 1 hour each. New Bag 03/13/2021 2:13 AM MECH[employer]ICAL CAR CHECKER 20 mEq 100 mL/hr potassium chloride IVPB 20 mEq in New Bag 03/15/2021 8:[address] 20 mEq 100 mL/hr 100 mL (premix) 20 mEq, intravenous, at 100 mL/hr, Administer over 60 Minutes, Every 1 hour, First dose on [facility] 03/15/21 at 0600, For 4 doses, Central Line with Telemetry: 20 mEq per bag over 1 hour each. New Bag 03/15/2021 7:26 AM MECHANICAL CAR CHECKER 20 mEq 100 mL/hr New Bag 03/15/2021 6:28 AM MECH[employer]ICAL CAR CHECKER 20 mEq 100 mL/hr potassium chloride IVPB 20 mEq in New Bag 03/15/2021 7:[address] 20 mEq 100 mL/hr 100 mL (premix) 20 mEq, intravenous, at 100 mL/hr, Administer over 60 Minutes, Every 1 hour, First dose on [facility] 03/15/21 at 1700, For 3 doses, For K 3.0-3.2 mEq/L - give total of 60 mEq, Monitor the following for replacement: Potassium, Replace Potassium per: Standard Schedule New Bag 03/15/2021 6:08 PM MECH[employer]ICAL [employer] CHECKER 20 mEq 100 mL/hr New Bag 03/15/2021 5:03 PM MECH[employer]ICAL CAR CHECKER 20 mEq 100 mL/hr potassium chloride IVPB 20 mEq in New Bag 03/16/2021 5:[address] 20 mEq 100 mL/hr 100 mL (premix) 20 mEq, intravenous, at 100 mL/hr, Administer over 60 Minutes, Every 1 hour, First dose on [place] 03/16/21 at 0500, For 1 dose, Central Line with Telemetry: 20 mEq per bag over 1 hour each. potassium chloride packet 40 mEq (KLOR-C ON) Given 03/13/2021 2:13 AM MECHANICAL CAR CHECKER 40 mEq 40 mEq, oral, Once, On [place] 03/13/21 at 0215, For 1 dose, Dissolve one packet in 4-5 ounces of water or other beverage prior to administration. potassium phosphate in NaCl Rate/Dose Verify 03/15/2021 7:00 AM MECHANICAL CAR CHECKER 83.3 mL/hr 0.9% IVPB 15 mmol 15 mmol, intravenous, at 83.3 mL/hr, Administer over 3 Hours, Once, On Wed03/15/21 at 0600, For 1 dose New Bag 03/15/2021 6:11 AM MECH[employer]ICAL CAR CHECKER 15 mmol 83.3 mL/hr potassium phosphate in NaCl Rate/Dose Verify 03/15/2021 8:00 PM MECH[employer]ICAL CAR CHECKER 83.3 mL/hr 0.9% IVPB 15 mmol 15 mmol (rounded from 13.55 mmol = 0.25 mmol/kg ? 54.2 kg Dosing weight), intravenous, at 83.3 mL/hr, Administer over 3 Hours, Once, On Wed03/15/21 at 1800, For 1 dose, Monitor the following for replacement: Phosphorus New Bag 03/15/2021 6:17 PM MECH[employer]ICAL [employer] CHECKER 15 mmol 83.3 mL/hr potassium phosphate in NaCl Rate/Dose Verify 03/16/2021 9:00 AM MECH[employer]ICAL CAR CHECKER 83.3 mL/hr 0.9% IVPB 15 mmol 15 mmol, intravenous, at 83.3 mL/hr, Administer over 3 Hours, Every 3 hours, First dose (after last modification) on Wed03/16/21 at 0500, For 2 doses New Bag 03/16/2021 8:13 AM MECH[employer]ICAL CAR CHECKER 15 mmol 83.3 mL/hr Rate/Dose Verify 03/16/2021 8:00 AM MECHANICAL CAR CHECKER 83.3 mL/hr potassium phosphates 30 mmol in New Bag 03/12/2021 10:50 AM CS T 30 mmol 85 mL/hr NaCl 0.9% IVPB 30 mmol, intravenous, at 85 mL/hr, Administer over 6 Hours, Once, On Wed03/12/21 at 0715, For 1 dose, Peripheral or central line. [id number] 280-160-250 mg Given 2020 9:40 PM MECHANICAL CAR CHECKER 2 packets per packet 2 packet (PHOS-NAK) 2 packet, oral, Every 4 hours while awake, First dose on Wed03/19/21 at 1000, For 4 doses, Monitor the following for replacement: Phosphorus Given 03/19/2021 5:57 PM MECHANICAL CAR CHECKER 2 packets Given 03/19/2021 3:09 PM MECHANICAL CAR CHECKER 2 packets propofoL (DIPRIVAN) 10 mg/mL injection - ADS Override Pull Starting on Wed03/12/21 at 0923, For 1 dose, Created by cabinet override propofol 10 mg/mL Rate/Dose Verify 03/14/2021 6:00 25 mcg/kg/min 8.13 mL/hr infusion (DIPRIVAN) AM MECHANICAL CAR CHECKER 5-80 mcg/kg/min ? 54.2 kg Dosing weight (1.626-26.016 mL/hr, rounded to 1.63-26.02 mL/hr), intravenous, Continuous, Starting on Wed03/12/21 at 1100, Type: Titrate, Initiate at: 5 mcg/kg/min., Titrate at: 5 mcg/kg/min. every 5 min., Goal: Other, Goal: RASS -2 Rate/Dose Change 03/14/2021 4:50 AM MECH[employer]ICAL CAR CHECKER 25 mcg/kg/min 8.13 mL/hr Rate/Dose Verify 03/14/2021 4:00 AM MECHANICAL CAR CHECKER 30.012 mcg/kg/min 9.76 mL/h r propofoL injection (DIPRIVAN) Given 03/12/2021 9:45 AM MECHANICAL CAR CHECKER 30 mg intravenous, Code/trauma/sedation medication, Starting on Wed03/12/21 at 0945 propofoL injection (DIPRIVAN) Given 03/12/2021 9:46 AM MECHANICAL CAR CHECKER 30 mg intravenous, Code/trauma/sedation medication, Starting on Wed03/12/21 at 0946 rifAXIMin tablet 550 mg (XIFAXAN) Given 03/24/2021 8:52 AM MECHANICAL CAR CHECKER 550 mg 550 mg, oral, 2 times daily, First dose on [place] 03/13/21 at 0900, Indications: Prophylaxis, medical Given 03/23/2021 9:49 PM MECHANICAL CAR CHECKER 550 mg Given 03/23/2021 8:10 AM MECHANICAL CAR CHECKER 550 mg rocuronium injection (ZEMURON) Given 03/12/2021 9:45 AM MECHANICAL CAR CHECKER 70 mg Code/trauma/sedation medication, Starting on Wed03/12/21 at 0945 sodium bicarbonate tablet 650 mg Given 03/23/2021 8:10 AM MECHANICAL CAR CHECKER 650 mg 650 mg, oral, 3 times daily, First dose on Wed03/19/21 at 1400 Given 03/22/2021 10:49 PM MECHANICAL CAR CHECKER 650 mg Given 03/22/2021 3:05 PM MECHANICAL CAR CHECKER 650 mg sodium bicarbonate tablet 650 mg Given 03/24/2021 8:53 AM MECHANICAL CAR CHECKER 650 mg 650 mg, oral, 4 times daily, First dose (after last modification) on 03/23/21 at 1700 Given 03/23/2021 9:49 PM MECHANICAL CAR CHECKER 650 mg Given 03/23/2021 5:38 PM MECHANICAL CAR CHECKER 650 mg sodium chloride 0.9 % flush 100 mL Given 03/12/2021 1:47 PM MECHANICAL CAR CHECKER 100 mL 100 mL, intravenous, Once in imaging, line care, needed for CT, Starting on Wed03/12/21 at 1346, For 1 dose sodium chloride 0.9 % flush 100 mL Given 03/16/2021 2:37 AM MECHANICAL CAR CHECKER 100 mL 100 mL, intravenous, Once in imaging, line care, for CT exam, Starting on 03/16/21 at 0230, For 1 dose sodium chloride 0.9 % injection 10 mL Given 03/12/2021 1:46 PM MECHANICAL CAR CHECKER 10 mL 10 mL, intravenous, Once in imaging, line care, Starting on Wed03/12/21 at 1346, For 1 dose sodium chloride 0.9 % injection 10 mL Given 03/17/2021 6:48 AM MECHANICAL CAR CHECKER 10 mL 10 mL, intravenous, As needed, line care, Central Venous Catheter (CVC) Non-Tunneled Non-Valved, Starting on Wed03/12/21 at 1706, Prior to blood sampling, post blood transfusion or post blood sampling. Given 03/17/2021 12:12 AM MECHANICAL CAR CHECKER 10 mL sodium chloride 0.9 % injection 10 mL Given 03/16/2021 2:36 AM MECHANICAL CAR CHECKER 10 mL 10 mL, intravenous, Once in [...] injection 5-15 mL Given 03/23/2021 9:51 PM MECHANICAL CAR CHECKER 10 mL 5-15 mL, intravenous, Every 12 hours scheduled, First dose on Wed03/12/21 at 2100, Central Venous Catheter (CVC) Non-Tunneled Non-Valved: When no infusion to maintain patency. Flush 5 mL per lumen. Given 03/23/2021 8:10 AM MECHANICAL CAR CHECKER 10 mL Given 03/22/2021 10:51 PM MECHANICAL CAR CHECKER 10 mL spironolactone tablet 50 mg (ALDACTONE) Given 03/24/2021 8:52 AM MECHANICAL CAR CHECKER 50 mg 50 mg, oral, Daily, First dose on Luz Marina 03/20/21 at 0900 Given 03/23/2021 8:10 AM MECHANICAL CAR CHECKER 50 mg Given 03/22/2021 10:22 AM MECHANICAL CAR CHECKER 50 mg thiamine tablet 100 mg (VITAMIN B1) Given 03/24/2021 8:52 AM MECHANICAL CAR CHECKER 100 mg 100 mg, oral, Daily, First dose on Wed03/13/21 at 1230 Given 03/23/2021 8:10 AM MECHANICAL CAR CHECKER 100 mg Given 03/22/2021 10:22 AM MECHANICAL CAR CHECKER 100 mg vancomycin 1,000 mg in NaCl [...] mL/hr in NaCl 0.9% 100 mL AM MECHANICAL CAR CHECKER infusion (PITRESSIN) 0.04 Units/min (12 mL/hr), intravenous, Continuous, Starting on Wed03/12/21 at 1245 New Bag 03/15/2021 10:06 AM MECHANICAL CAR CHECKER 0.04 Units/min 12 mL/hr Rate/Dose Verify 03/15/2021 10:00 AM MECHANICAL CAR CHECKER 0.04 Units/min 12 mL/hr documented in this encounter Active and Recently Administered Medications Times are shown in MECHANICAL CAR CHECKER. Scheduled Medication Order 03/22/2021 03/23/2021 03/24/2021 ciprofloxacin tablet 500 mg (CIPRO) 07 (Given - Prov ider: Nola Frederick) 0634 (Given - Provider: Lisa Stinson RSumaN.) 0618 (G iven - Provider: Bernardo Rosario R.NSuma) 500 mg, oral, Daily before breakfast, Fi rst dose on Luz Marina 03/20/21 at 0700, [...] RSumaNSuma) 0852 (Given - Provider: Hope Guerrier RSumaNSuma) 30 g, gastric tube, 3 times daily, First dose on Wed03/12/21 at 1400, Aim for 500 cc stool in 24 hours or 3-4 loose bowel movements per day magnesium oxide tablet 400 mg (MAG-OX) 0 634 (Given - Provider: Lisa Stinson RSumaNSuma)1541 (Given - Provider: Andrew AndersonN.) 0618 (Given - Provider: Bernardo Rosario RSumaNSuma) [...] phytonadione (vitamin K1) tablet 5 mg (MEPHYTON) (CAN ELED) 1022 (Given - Provider: Julissa Villafuerte [...] 650 mg 1738 (G iven - Provider: Andrew AndersonNSuma)2149 (Given - Provider: Bernardo Rosario R.N.) 0853 [...] dose on Luz Marina 03/20/21 at 0900 thiamine tablet 100 mg (VITAMIN B1) 1022 (Given - Prov ider: Julissa Villafuerte R.N.) 0810 (Given - Provider: Hope Guerrier R.N.) 0852 (Tristan iven - Provider: Hope Guerrier R.N.) 100 mg, oral, Daily, First dose on Luz Marina 03/13/21 at 1230 PRN Medication Order 03/22/2021 03/23/2021 03/24/2021 LORazepam injection 1 mg (ATIVAN) 1 mg, intravenous, Every 4 hours PRN, se izures, Starting on Wed03/20/21 at 2120, For intravenous [...] COVID19 Pending 03/12/2021 03/12/2021 03/12/2021 7:32 PM MECHANICAL CAR CHECKER documented as of this encounter Care Teams Gravity Prospecting Operator Helper Relationship Specialty Start Date End Date Elsewhere, Pcp PCP - General Family Medicine 03/10/20 11/30/21 Ervin Schroeder MD Referring Provider Family Medicine 03/24/[address] [place], [place] [id number] documented as of this encounter
--- OUTSIDE RECORDS SUMMARY | 2022-02-04 23:23 | XMS_ITS ---
:1990 Author Organization [facility] Address [address] [place] [address] Care Team Providers Name Role Phone Ana Red P.A.-C. Primary Care Provider Transplant Episode [facility] ([place] - MNMCEvaluation began on 09/26/2021Marked as Deferred on 10/16/2021 Liver CoordinatorTXP PRE LIVER NURSE TEAM 2 ROCHPhone: N/AFax: N/AEmail: N/A Scores Score Value Updated Expires Exceptions/Reas ons CPRA Not available UNOS MELD Not available MELD (Calc) 28 02/02/2022 Andreafski Organ Diagnosis Organ Primary Contributory Liver Alcoholic Cirrhosis Care Team Name Role Phone Fax Email TXP PRE LIVER Liver Coordinator N/A N/A N/A NURSE TEAM 2 DAYRON Vann, Transplant Surgeon [phone] Jeff [email or web address] Matthew Jerome, Referring Provider [phone] [email or web address] Lilian Santillan Transplant Edge Inker du Events Pre-Transplant Referred: 08/14/2021 Evaluation began: 09/26/2021 Committee: 10/15/2021
--- OUTSIDE RECORDS SUMMARY | 2022-02-04 23:23 | XMS_ITS | Encounter Summary ---
:1990 Author Organization [facility] Address [address] [place] [address] Care Team Providers Name Role Phone Elsewhere, Pcp Primary Care Provider Unavailable Reason for Visit Reason Comments Communication Encounter Details Date Type Department Care Team Description 07/12/2020 Clinical Communication Department of Family [facility], Pcp Communication Medicine, [facility], in [place], [place] [address] [address] Social History Tobacco Use Types Packs/Day Years [...] do you attend protestant or Never 2021 restorationist services? 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 The entrance is on the north side of the building. You must call [phone] during the hours of 7am to 6 [...] sending patient for testing in [facility] or [facility], route encounter to the correct testing pool. OLOGY TEACHER documented in this encounter Plan of Treatment Upcoming Encounters Date Type Specialty Care Team Description Hospital Radiology [facility] 2 Encounter Tyrell Rodriguez M.D. [address] [place] [address] [phone] Hospital Gastroenterology and [facility] 2 Encounter Hepatology Tyrell Rodriguez M.D. [address] [place] [address] [phone] Surgery Gastroenterology and [facility] ESOPHAG OGASTRODUODENOSCOPY 2 Hepatology Tyrell Rodriguez M.D. [address] [place] [phone] Telemedicine Transplant 2 Lab Laboratory Medicine Karin, Olinda Gannon M.D., Ph.D. [address] [place] [address] [phone] Lab Laboratory Medicine Olinda Frazier M.D., Ph.D. [address] [place] [phone] Office Visit Transplant Olinda Frazier M.D., Ph.D. [address] [place] [phone] Office Visit Community Internal [facility], 2 Solitario Perez P.A.-C. [address] [place] [address] [place] [phone] Appointment Radiology Matthew Jerome 2 YVikBLilian Bedolla [address] [place] [phone] Appointment Gastroenterology and [facility] 2 Hepatology Yue Burciaga M.D. [address] [place] [address] Office Visit Gastroenterdina and Matthew Jeorme 2 Hepatology Joshua RodriguezBSumaBLilian Bedolla [address] [place] [phone] Appointment Radiology Matthew Jerome 2 YJoshuaBSumaBLilian Bedolla [address] [place] [phone] Scheduled Procedures Name Priority Associated Diagnoses Date/Time ESOPHAGOGASTRODUODENOSCOPY Cirrhosis Alc oholic (HCC) 02/10/2022 8:45 AM CDT Hypertension Portal (HCC) documented as of this encounter Visit Diagnoses Not on filedocumented in this encounter Care Teams Manager Performance Relationship Specialty Start Date End Date Elsewhere, Pcp PCP - General Family Medicine 03/10/20 11/30/21 documented as of this encounter
--- OUTSIDE RECORDS SUMMARY | 2022-02-04 23:23 | XMS_ITS | Encounter Summary ---
:1990 Author Organization [facility] Address [address] [place] [address] Care Team Providers Name Role Phone Elsewhere, [...] do you attend denominational or Never 2021 uatsdin services? 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 Female 04/12/2021 7:39 PM DEEP FAT COOK FRY documented as of this encounter Plan of Treatment Upcoming Encounters Date Type Specialty Care Team Description Hospital Radiology [facility] 2 Encounter Tyrell Rodriguez M.D. [address] [place] [phone] Hospital Gastroenterology and [facility] 2 Encounter Hepatology Tyrell Rodriguez M.D. [address] [place] [phone] Surgery Gastroenterology and [facility] ESOPHAG OGASTRODUODENOSCOPY 2 Hepatology Tyrell Rodriguez, Lilian [address] [place] [phone] Telemedicine Transplant 2 Lab Laboratory Medicine Karin, Olinda Gannon M.D., Ph.D. [address] [place] [phone] Lab Laboratory Medicine Olinda Frazier M.D., Ph.D. [address] [place] [address] [phone] Office Visit Transplant Olinda Frazier M.D., Ph.D. [address] [place] [address] [phone] Office Visit [facility], 2 Medicine Vernell Perez [address] [place] [phone] Appointment Radiology Matthew Jerome 2 YTyrell M.D. [address] [place] [address] [phone] Appointment Gastroenterology and [place], 2 Hepatology Yue Burciaga M.D. [address] [place] [phone] Office Visit Gastroenterology and Matthew Jerome 2 Hepatology Tyrell Rodriguez M.D. [address] [place] [address] [phone] Appointment Radiology Matthew Jerome 2 YTyrell M.D. [address] [place] [address] [phone] Scheduled Procedures Name Priority Associated Diagnoses Date/Time ESOPHAGOGASTRODUODENOSCOPY Cirrhosis Alc oholic (HCC) 02/10/2022 8:45 AM CDT Hypertension Portal (HCC) documented as of this encounter Procedures Procedure Name Priority Date/Time Associated Diagnosis Comme nts GENERAL SURGERY Routine 03/12/2021 11:00 AM Resul ts for this IMAGE EXAM DEEP FAT COOK FRY procedure are i n the results section. documented in this encounter Results Non-Radiology Image-General Surgery Image Exam (03/12/2021 11:00 AM DEEP FAT COOK FRY) Specimen (Source) Anatomical Location Collection Method / Collectio n Time Received Time / Laterality Volume Narrative IIMS - 03/13/2021 6:34 PM DEEP FAT COOK FRY This order has been created and auto-finalized [...] COVID19 Pending 03/12/2021 03/12/2021 03/12/2021 7:32 PM DEEP FAT COOK FRY documented as of this encounter Care Teams Back Hoe Machine Operator Relationship Specialty Start Date End Date Elsewhere, Pcp PCP - General Family Medicine 03/10/20 11/30/21 documented as of this encounter
--- OUTSIDE RECORDS SUMMARY | 2022-02-04 23:23 | XMS_ITS | Encounter Summary ---
:1990 Author Organization [facility] Address [address] [place] [address] Care Team Providers Name Role Phone Elsewhere, Pcp Primary Care Provider Unavailable Encounter Details Date Type Department Care Team Description 08/27/2020 Orders Only [facility] PCP [facility] Sa yoav Trujillo M.D. [address] [place], [place] [phone] (Wo rk) Social History Tobacco [...] do you attend mormon or Never 2021 tenriism services? 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 Radiology [facility] 2 Encounter Tyrell Rodriguez, Lilian [address] [place] [phone] [facility] Gastroenterology and [facility] 2 Encounter Hepatology Tyrell Rodriguez, Lilian [address] [place] [phone] Surgery Gastroenterology and [facility] ESOPHAG OGASTRODUODENOSCOPY 2 Hepatology Tyrell Rodriguez, Lilian [address] [place] [phone] Telemedicine Transplant 2 Lab Laboratory Medicine Karin, Olinda Gannon M.D., Ph.D. [address] [place] [address] [phone] Lab Laboratory Medicine Olinda Frazier M.D., Ph.D. [address] [place] [address] [phone] Office Visit Transplant Karin, 2 Adeline Gannon M.D., Ph.D. [address] [place] [phone] Office Visit [facility], 2 Medicine Vernell Perez [address] [place] [address] [phone] Appointment Radiology Matthew Jerome 2 Y, M.B.B.SSuma, MJules [address] [place] [phone] Appointment Gastroenterology and [place], 2 Hepatology Yue Burciaga M.D. [address] [place] [phone] Office Visit Gastroenterology and Matthew Jerome 2 Hepatology Y M.B.B.S., MJules [address] [place] [phone] Appointment Radiology Matthew Jerome 2 Y M.B.B.S., MJules [address] [place] [phone] Scheduled Procedures Name Priority Associated Diagnoses Date/Time ESOPHAGOGASTRODUODENOSCOPY Cirrhosis Alc oholic (HCC) 02/10/2022 8:45 AM CDT Hypertension Portal (HCC) documented as of this encounter Visit Diagnoses Not on filedocumented in this encounter Care Teams Supervisor Picking Crew Relationship Specialty Start Date End Date Elsewhere, Pcp PCP - General Family Medicine 03/10/20 11/30/21 documented as of this encounter
--- OUTSIDE RECORDS SUMMARY | 2022-02-04 23:24 | XMS_ITS | Encounter Summary ---
:1990 Author Organization [facility] Address [address] [place] [phone] Phone Care Team Providers Name Role Phone [...] No / Unsu re 07/08/2021 9:38 AM CATERING CHEF someone who was confirmed or suspected to have Coronavirus/COVID-19? documented as of this encounter Plan of Treatment Not on filedocumented as of this encounter Visit Diagnoses Not on filedocumented in this encounter
--- OUTSIDE RECORDS SUMMARY | 2022-02-04 23:24 | XMS_ITS | Encounter Summary ---
:1990 Author Organization [facility] Address [address] [place] [address] Care Team Providers Name Role Phone [facility], [facility] Primary Care Provider [phone] [facility] Unavailable [phone] Encounter Details Date Type Department Care Team [...] on filedocumented in this encounter Care Teams Phonograph Needle Tip Maker Relationship Specialty Start Date End Date [facility] PCP - General 09/30/18 [place] [address] [facility] [phone] [facility] PCP - Primary Care Clinic [address] [address] [place] [phone] documented as of this encounter
--- OUTSIDE RECORDS SUMMARY | 2022-02-04 23:24 | XMS_ITS | Encounter Summary ---
:1990 Author Care Team Providers Name Role Phone Ervin Schroeder MD Primary Care Provider [phone] [facility] OTHER [phone] Parris Knight (Mother) Patient Designee [phone] Jairo Rodriguez ELECTRICAL HARDWARE ENGINEER Nurse Practitioner [phone] Matthew Rollins MD Transplant Yield Loss Inspector [phone] [facility] Care Team Palliative Care [phone] Taylor Paul RN Palliative Care [phone] [facility] Spud Grader [phone] Reason for Visit JAN Initial Assessment and Plan Assessment Note #[id number] Patient is seen for an initial visit and [facility]: This is a joint visit with Ankita NORTH PASSENGER BOOKING CLERK Patient states that she is currently on with a doctor's visit at the time of the call. Ok to reschedule. No services performed. Discussion Note: None recorded.Patient educational handouts: No information available. Plan of Care Reminders Provider Appointments Established 02/05/2022 2:00PM Jairo orta, ATHLETIC GEAR CUSTODIAN Lab None recorded. ? ? Referral None [...] Code Code System Name Reaction Severity Onset 34451 RxNorm Azithromycin ? ? ? Problems Name [...] Status Unknown. Past Encounters 11/05/2021 Jairo Rodriguez, ATHLETIC GEAR CUSTODIAN: [address], [place] [address], Ph. [phone] 10/14/2021 Evi Biggs, EDUCATION DEPARTMENT CHAIR: [address] [place] [phone], Ph. History of Present Illness None recorded. Review of Systems None recorded. Physical Exam ? General Adult Exam Reported By: Patient
--- OUTSIDE RECORDS SUMMARY | 2022-02-04 23:24 | XMS_ITS | Encounter Summary ---
:1990 Author Organization [facility] Address [address] [place] [address] Phone Care Team Providers Name Role Phone Unavailable Primary Care Provider Unavailable Reason for Visit Reason Comments Abdominal Pain Encounter Details Date Type Department Care Team Description 07/08/2021 Emergency [facility] Emergency Daniel Doe, Ascites due to Department alcoholic hepatitis [address] [facility] [address] R1[address] [place], [place] [phone] Social History Tobacco Use Types Packs/Day Years Used Date Smoking Tobacco: Never Assessed Sex Assigned at Date Recorded Not on file COVID-19 Exposure Response Date Recorded In the last 10 days, have you been in contact with No / Unsu re 07/08/2021 9:38 AM PLANT ENGINEERING MANAGER someone who was confirmed or suspected to have Coronavirus/COVID-19? documented as of this encounter Last Filed Vital Signs Vital Sign Reading Time Taken Comments Blood Pressure 114/67 07/08/2021 4:03 PM PLANT ENGINEERING MANAGER Pulse 82 07/08/2021 4:03 PM PLANT ENGINEERING MANAGER Temperature 36.9 ??C (98.5 ??F) 07/08/2021 6:31 AM PLANT ENGINEERING MANAGER Respiratory Rate 16 07/08/2021 4:03 PM PLANT ENGINEERING MANAGER Oxygen Saturation 98% 07/08/2021 4:03 PM PLANT ENGINEERING MANAGER Inhaled Oxygen Concentration - - Weight - [...] was a pleasure caring for you today! T ENGINEERING MANAGER AttachmentsThe following attachments cannot be sent through Care Everywhere. Fluid in the Belly (Ascites) Discharge Instructions (Slovak)documented in this encounter Medications at Time of [...] of alcoholic cirrhosis who was transferred to [facility] ED on 07/08/21 from [place] [facility] with pain and altered mental status. [...] who has known her for many years. NUCLEAR FUELS RESEARCH ENGINEER shows that she most recently filled this on 06/19/21. Patient would also strongly prefer that we prescribe her something for insomnia (something other than melatonin). Do not plan on prescribing pharmacotherapyfor insomnia at this time consider recent altered mental status and complexity of her medical history. Recommended she discuss this further with her PCP and/or analytical engineer. ?? Ervin Childs MD, 07/08/2021 4:19 PM [...] do. She usually lives in [place] with her boyfriend. Patient stated her mom [...] who has known her for many years. NUCLEAR FUELS RESEARCH ENGINEER shows that she most recently filled this [...] Psychosocial History: Lives with her boyfriend in [place], [place]. Denies alcohol use. Denies illicit drug [...] ?? Ervin Childs MD 07/08/2021 15:54 ?? 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 Patient reports confusion, [...] 07/08/2021 2:57 PM Emergency Medicine Resident PGY-1 T ENGINEERING MANAGER Grazyna Delgadillo RN - 07/08/2021 1:19 PM CST Initial Utilization review screening completed. Patient appears to be appropriate for INPATIENT based on ammonia 110 I spoke with provider regarding inpt vs obs, advising obs appropriate, order to remain obs Final order/decision will be based upon provider's assessment of patient. Grazyna Delgadillo ED RN Clinical Coordinator Pager: [phone] [employer] T ENGINEERING MANAGER Evon Claros RN - 07/08/2021 1:07 PM CST ED to IP Nursing Handoff Note S (Situation) Reason for Admission: 1. Ascites due to alcoholic hepatitis [facility]/Isolation: Standard Suspected Infection/Sepsis: No Restraints: None [...] NA RN: Evon Claros RN Extension #: [id number] Daniel Larsen - 07/08/2021 12:04 PM CST Parris Knight, patient's mother, would like an update of her daughters condition. Daniel Guerrero MD - 07/08/2021 7:33 AM CST ED Faculty Attestation and Note Catia Carias 30 y.o. female [id number] FACULTY ATTESTATION I Hiro Doe MD, performed [...] the hospitalist. Their care was signed out [id number] with the oncoming provider Dr. Lindsay. Final Clinical Impression Abdominal pain, unclear etiology Disposition and Plan Final disposition to be determined by oncoming provider Currently [place] [facility] Jessica Moyer MD, 07/08/2021 7:13 AM Emergency Medicine Resident PGY-1 T ENGINEERING MANAGER Analilia Espitia RN - 07/08/2021 7:09 AM CST Pt transferred here from [facility] due to liver failure. Pt has been to multiple EDs in the last few days after running out of pain medication. 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 ULT GALLBLADDER Routine 07/08/2021 12:13 Results for this PM PLANT ENGINEERING MANAGER procedure are i n the results section. ED US STAT 07/08/2021 10:30 Results for this ABDOMINAL/GALLBLADDER AM PLANT ENGINEERING MANAGER proced ure are in the results section. EXTRA TUBE - LAVENDER Routine 07/08/2021 7:28 AM Results for this PLANT ENGINEERING MANAGER procedure are i n the results section. PC FREE STANDING Routine 07/08/2021 7:28 AM Resul ts for this BLOOD DRAW BY PLANT ENGINEERING MANAGER procedure are in VENIPUNCTURE the results section. PC FREE STANDING Routine 07/08/2021 7:28 AM Resul ts for this BLOOD DRAW BY PLANT ENGINEERING MANAGER procedure are in VENIPUNCTURE the results section. PC ELECTROLYTES PANEL STAT 07/08/2021 7:27 AM Results for this PLANT ENGINEERING MANAGER procedure are i n the results section. TC LAB ER STAT STAT 07/08/2021 7:27 AM Results for this URINALYSIS PLANT ENGINEERING MANAGER procedure are i n the results section. PROTHROMBIN (PT) & STAT 07/08/2021 7:27 AM Res ults for this INR PLANT ENGINEERING MANAGER procedure are i n the results section. PC LAB TEST Routine 07/08/2021 7:27 AM Results for this PLANT ENGINEERING MANAGER procedure are i n the results section. PC AMMONIA STAT 07/08/2021 7:27 AM Results f or this PLANT ENGINEERING MANAGER procedure are i n the results section. LIPASE STAT 07/08/2021 7:27 AM Results f or this PLANT ENGINEERING MANAGER procedure are i n the results section. PANEL HEPATIC STAT 07/08/2021 7:27 AM Results for this FUNCTION PLANT ENGINEERING MANAGER procedure are i n the results section. documented in this encounter Results COVID-19 SURVEILLANCE (07/08/2021 1:32 PM PLANT ENGINEERING MANAGER) [facility] Method Time Signature COVID-19 Not Detected Not Detected [facility] Comment: This test was developed and its performa nce characteristics determined by [employer] This testing, RT-PCR, has been authorized by [...] Laterality Nasopharyngeal Swab 07/08/2021 1:32 07/08 PM PLANT ENGINEERING MANAGER 1:40 PM PLANT ENGINEERING MANAGER Narrative [facility] - 07/08/2021 2:11 PM PLANT ENGINEERING MANAGER Is the patient a healthcare employee: No Is the patient a [facility]) Employee : No Daniel Doe MD LABORATORY Performing Organization Address City/State/ZIP Code Phon e Number [facility] [place] [address] GALLBLADDER (07/08/2021 12:13 PM PLANT ENGINEERING MANAGER) Anatomical Region Laterality Modality Abdomen Ultrasound Specimen (Source) Anatomical Collection Method Collection Time Re ceived Time Location / / Volume Laterality 07/08/2021 12:53 PM PLANT ENGINEERING MANAGER Impressions 07/08/2021 1:17 PM PLANT ENGINEERING MANAGER Impression: Biliary sludge without shadowing gallstones. No sonographic findings to suggest acute cholecystitis. I have personally reviewed the image(s) and initial interpretation, and I agree with the findings as documented by the resident/fellow. Reading Radiologist: Daron Mccurdy Reading Resident: Gerard Webb Narrative 07/08/2021 1:17 PM PLANT ENGINEERING MANAGER Indication: sludge on ED u/s, chronic abd [...] ULT ED US ABDOMINAL/GALLBLADDER (07/08/2021 10:30 AM PLANT ENGINEERING MANAGER) Anatomical Region Laterality Modality Ultrasound Specimen (Source) Anatomical Location Collection Method / Collectio n Time Received Time / Laterality Volume Narrative 07/08/2021 1:12 PM PLANT ENGINEERING MANAGER ED Abdomen/Gallbladder Ultrasound Indications: Abdominal pain Window: [...] CBC WITH PLTS/AUTO DIFF (07/08/2021 7:28 AM PLANT ENGINEERING MANAGER) [facility] Method Time Signature WBC 5.29 4.00 - [facility] 10.00 k/cmm RBC 1.93 (L) 3.90 - [facility] 5.20 m/cmm Hgb 7.0 (AA) 11.5 - [facility] 15.7 g/dL Hematocrit 21.2 (L) 34.0 - [facility] 45.0 % MCV 109.8 (H) 80.0 - [facility] 100.0 fL MCH 36.3 (H) 25.0 - [facility] 32.0 pg MCHC 33.0 31.0 - [facility] 36.0 g/dL RDW 13.7 11.5 - [facility] 14.5 % Plt 74 (L) 150 - 400 [facility] k/cmm MPV 9.7 6.5 - 12.5 [facility] fL Automated Abs 3.54 1.70 - [facility] Neutrophil 6.50 k/cmm Comment: Preliminary ANC, Final Result t o Follow Abs Immature Granulocyte 0.01 0.00 - 0.09 k/cmm [facility] Comment: The Immature Granulocyte Absolu te count contains metamyelocytes and myelocytes. Abs Neutrophil 3.54 1.70 - 6.50 k/cmm [facility] LA B Abs Lymphocyte 1.21 0.80 - 4.00 k/cmm [facility] [place] B Abs Monocyte 0.40 0.20 - 1.00 k/cmm [facility] Abs Eosinophil 0.10 0.00 - 0.60 k/cmm [facility] [place] B Abs Basophil 0.03 0.00 - 0.20 k/cmm [facility] Orin Cell Slight [facility] Specimen Anatomical Collection Method Collection Time Receive d Time (Source) Location / / Volume Laterality Blood 07/08/2021 7:28 AM 9:32 PLANT ENGINEERING MANAGER AM PLANT ENGINEERING MANAGER Narrative [facility] - 07/08/2021 10:29 AM PLANT ENGINEERING MANAGER Critical value for Hgb called to and julisa d back by Charly Bowman RN in ER A at 07/08/2021 10:29:44 PLANT ENGINEERING MANAGER by Ines Bal Lance . Daniel Doe MD LABORATORY Performing Organization Address City/State/ZIP Code Phon e Number [facility] [place] [address] EXTRA TUBE - LAVENDER (07/08/2021 7:28 AM PLANT ENGINEERING MANAGER) athologist Signature LAVENDER TUBE Stored [facility] Comment: Lavendar (EDTA) tubes collected at [facility] are stored for 3 days from the collection date. Specimen Anatomical Collection Method Collection Time Receive d Time (Source) Location / / Volume Laterality Blood 07/08/2021 7:28 AM 2 7:35 PLANT ENGINEERING MANAGER AM PLANT ENGINEERING MANAGER Narrative [facility] - 07/08/2021 7:35 AM PLANT ENGINEERING MANAGER Ordered by ~[id number] Provider Unknown LABORATORY Performing Organization Address City/[facility]/ZIP Code Phon e Number [facility] [place] [address] EXTRA TUBE - SST (07/08/2021 7:28 AM PLANT ENGINEERING MANAGER) athologist Signature SST TUBE Stored [facility] Comment: SST tubes (Serum Separator) are stored in the lab for 3 days from the collection date. Specimen Anatomical Collection Method Collection Time Receive d Time (Source) Location / / Volume Laterality Blood 07/08/2021 7:28 AM 2 7:35 PLANT ENGINEERING MANAGER AM PLANT ENGINEERING MANAGER Narrative [facility] - 07/08/2021 7:35 AM PLANT ENGINEERING MANAGER Ordered by ~[id number] Provider Unknown LABORATORY Performing Organization Address City/[facility] Phon e Number [facility] [place] [address] TEST URINE (07/08/2021 7:27 AM PLANT ENGINEERING MANAGER) athologist Signature Ur Negative Negative [facility] UPT performed [facility] at Comment: Test performed by: [facility] ED Clinical Laboratory [id number] [place] [id number] Specimen Anatomical Collection Method Collection Time Receive d Time (Source) Location / / Volume Laterality Urine 07/08/2021 7:27 AM 2 PLANT ENGINEERING MANAGER 10:53 AM PLANT ENGINEERING MANAGER Daniel Doe MD LABORATORY Performing Organization Address City[facility]/ZIP [facility] Phon e Number [facility] [place] [address] (ABNORMAL) URINALYSIS,TOTAL (07/08/2021 7:27 AM PLANT ENGINEERING MANAGER) [facility] gist Method Time Signature Color YELLOW YELLOW [facility] Appearance CLEAR CLEAR [facility] Urine Glucose NEGATIVE NEGATIVE [facility] mg/dL Bili UA TRACE (A) NEGATIVE [facility] Ketones NEGATIVE NEGATIVE [facility] mg/dL Specific [place] 1.024 1.003 - [facility] 1.030 Blood Ur NEGATIVE Neg-Trace [facility] PH Urine 6.5 5.0 - 7.0 [facility] Protein Ur TRACE Neg-Trace [facility] mg/dL Urobilinogen NORMAL NORMAL EU/dL [facility] Nitrite Ur NEGATIVE NEGATIVE [facility] Leuk Est NEGATIVE Neg-Trace [facility] WBC Ur 0-5 0 - 5 perHPF [facility] RBC Ur 0-3 0 - 3 perHPF [facility] SQ EPITH 0-5 0 - 5 perHPF [facility] Mucus 1+ perLPF [facility] Urinalysis [facility] Performed at: Specimen Anatomical Collection Method Collection Time Receive d Time (Source) Location / / Volume Laterality Urine 07/08/2021 7:27 AM 2 8:09 PLANT ENGINEERING MANAGER AM PLANT ENGINEERING MANAGER Karina Israel MD LABORATORY Performing Organization Address City[facility] Phon e Number [facility] [place] [address] (ABNORMAL) PROTHROMBIN (PT) & INR (07/08/2021 7:27 AM PLANT ENGINEERING MANAGER) athologist Signature PT 39.2 (H) 9.0 - 12.5 [facility] sec INR 3.3 (H) 0.8 - 1.1 [facility] Specimen Anatomical Collection Method Collection Time Receive d Time (Source) Location / / Volume Laterality Blood 07/08/2021 7:27 AM 2 7:47 PLANT ENGINEERING MANAGER AM PLANT ENGINEERING MANAGER Karina Israel MD LABORATORY Performing Organization Address City[facility]/ZIP Code Phon e Number [facility] [place] [address] (ABNORMAL) AMMONIA (07/08/2021 7:27 AM PLANT ENGINEERING MANAGER) P athologist Signature Ammonia 110 (H) 11 - 51 [facility] mcmol/L Specimen Anatomical Collection Method Collection Time Receive d Time (Source) Location / / Volume Laterality Blood 07/08/2021 7:27 AM 2 7:53 PLANT ENGINEERING MANAGER AM PLANT ENGINEERING MANAGER Narrative [facility] - 07/08/2021 8:18 AM PLANT ENGINEERING MANAGER Send specimen on ice! Karina Israel MD LABORATORY Performing Organization Address City/State/ZIP Code Phon [place] [address] LIPASE (07/08/2021 7:27 AM PLANT ENGINEERING MANAGER) P athologist Signature Lipase 14 13 - 60 IU/L [facility] Specimen Anatomical Collection Method Collection Time Receive d Time (Source) Location / / Volume Laterality Blood 07/08/2021 7:27 AM 7:47 PLANT ENGINEERING MANAGER AM PLANT ENGINEERING MANAGER Karina Israel MD LABORATORY Performing Organization Address City/State/ZIP Code [place] [address] (ABNORMAL) PANEL HEPATIC FUNCTION (07/08/2021 7:27 AM PLANT ENGINEERING MANAGER) P athologist Signature Total Protein 5.3 (L) 6.4 - 8.3 [facility] g/dL Albumin 3.0 (L) 3.8 - 5.1 [facility] g/dL Bili Total 7.1 (H) 0.1 - 1.2 [facility] mg/dL Bili Direct 2.8 (H) 0.0 - 0.3 [facility] mg/dL Alk Phos 150 (H) 35 - 104 [facility] IU/L ALT (SGPT) 18 <=33 IU/L [facility] AST(SGOT) 47 (H) 5 - 40 [facility] IU/L Specimen Anatomical Collection Method Collection Time Receive d Time (Source) Location / / Volume Laterality Blood 07/08/2021 7:27 AM 7:47 PLANT ENGINEERING MANAGER AM PLANT ENGINEERING MANAGER Karina Israel MD LABORATORY Performing Organization Address City/State/ZIP Code Phon [place] [address] (ABNORMAL) ED CHEMISTRY LABS(NA,K,CL,CO2,GLU,CREAT,CA-IONIZED,ANION GAP) (07/08/2021 7:27 AM PLANT ENGINEERING MANAGER) Analysis Performed At Patho logist Time Signature Sodium 140 135 - 148 [facility] mEq/L Chloride 111 (H) 92 - 108 [facility] mEq/L AnGap 7 (L) 8 - 16 [facility] mEq/L Glucose 83 70 - 100 [facility] mg/dL ICA, Actual 4.34 (L) 4.40 - [facility] 5.20 mg/dL ICA, pH 4.51 4.40 - [facility] Corrected 5.20 mg/dL Creatinine 0.67 0.50 - [facility] 1.00 mg/dL BICARB 22 22 - 26 [facility] mEq/L eGFR, High >120 >=60 [facility] ml/min/1.7 3m2 Comment: Calculated using CKD-EPI equati on eGFR, Low 118 >=60 ml/min/1.73m2 [facility] Comment: Calculated using CKD-EPI equati on Potassium 4.0 3.5 - 5.3 mEq/L [facility] Specimen Anatomical Collection Method Collection Time Receive d Time (Source) Location / / Volume Laterality Blood 07/08/2021 7:27 AM 7:36 PLANT ENGINEERING MANAGER AM PLANT ENGINEERING MANAGER Karina Israel MD LABORATORY Performing Organization Address City/State/ZIP Code Phon e Number [facility] [place] [address] documented in this encounter Visit Diagnoses Diagnosis Ascites due to alcoholic hepatitis - [facility] documented in this encounter Administered Medications Inactive Administered Medications - up to 3 most recent administrations Medication Order MAR Action Action Date Dose Rate Site cefTRIAXone (ROCEPHIN) 1 g in New Bag 07/08/2021 1:32 PM PLANT ENGINEERING MANAGER 1 g 200 mL/hr NaCl 0.9% 100 mL IVPB 1 g, Indication (Select One): Infection - Suspected, SITE (Select all that apply): GI/Intra-abdominal, Cultures Ordered? No, Intravenous, ONE TIME, 1 dose, On Wed07/08/21 at 1305 HYDROmorphone PF (DILAUDID) 1 mg/mL injection Given 4:43 PM PLANT ENGINEERING MANAGER 0.5 mg 0.5 mg 0.5 mg, IV Push, ONE TIME, 1 dose, On Wed07/08/21 at 1640 lactulose (KRISTALOSE) package 20 g Given 07/08/2021 3:33 PM PLANT ENGINEERING MANAGER 20 g 20 g, Oral, TID, First dose on Wed07/08/21 at 1450, Until Discontinued oxyCODONE (ROXICODONE) tablet 5 mg Given 07/08/2021 10:39 AM PLANT ENGINEERING MANAGER 5 mg 5 mg, Oral, ONE TIME, 1 dose, On Wed07/08/21 at 1030 documented in this encounter Active and Recently Administered Medications Times are shown in PLANT ENGINEERING MANAGER. Scheduled Medication Order 07/06/2021 07/07/2021 07/08/2021 cefTRIAXone [...]
--- OUTSIDE RECORDS SUMMARY | 2022-02-04 23:24 | XMS_ITS | Encounter Summary ---
:1990 Author Care Team Providers Name Role Phone Ervin Schroeder MD Primary Care Provider [phone] Sandoval Soniya [facility] OTHER [phone] Parris Knight (Mother) Patient Designee [phone] Jairo Rodriguez DRAWING HAND Nurse Practitioner [phone] Matthew Rollins MD Transplant Machine Washer [phone] [facility] Care Team Palliative Care [phone] Taylor Paul RN Palliative Care [phone] Zenobia Kirby [facility] Inspector [phone] Reason for Visit Transition of Care Assessment [...] care for herself during the day. Scheduled DRAWING HAND follow up for next week. Nurse advised patient to call Alexandre back with any questions, concerns, new or worsening symptoms. Patient voiced understanding and agreed with plan. Recent changes: Cipro stopped, started B actrim 800/160mg daily, started lidoderm patches 5% x 14 days, started Zinc 50mg daily for 28 days. - Karnofsky score: 70 = Cares for self; unable to carry on normal activity or to do active work. Action: Encouragement and emotional supp ort provided. Reminded patient on Alexandre's 23/11 availab ility of a clinic licensed practical nurse to provide immediate guidance over the phone [...] Education provided. Next Steps: Patient outreach in [facility] 3-4 weeks. [Research resources]. Taylor Paul RN Discussion Note: None recorded.Patient educational handouts: No information available. Plan of Care Patient Instructions Patient instructed to call with Nixonio ns or concerns. Reminders Provider Appointments Established 02/05/2022 2:00PM Jairo orta, FULFILLMENT REPRESENTATIVE Lab None recorded. ? ? Referral None [...] Unknown. Past Encounters 11/27/2021 Taylor Paul RN: [address] [place] [phone], Ph. 11/05/2021 Jairo Rodriguez, FULFILLMENT REPRESENTATIVE: [address] [place] [phone], Ph. History of Present Illness Note: <div>Contact: Nurse performed follow-up visit via {{phone* face to face video}}. Patients' name and date of verified. </div><div>Patient story is presented {{entirely primarily*}} by the {{patient* patient's brother patient's fmkczat-pg-jza patient's caregiver patient's daughter patient's qptdzyiz-ne-ova patient's friend patient's grandchild patient's patient's sister patient's urvuml-ac-tyo patient's son patient's son-in-law patient's }} . 31 year-old, {{female* male}} with a reported history of alcoholic cirrhosis and acute respiratory failure who ap pears {{alert, oriented and answering questions appropriately* confused and not answering questions appropriately}}. </div><div>
</div><div>Start time: {{ 3:00pm#}} Stop time: {{ 3:20pm#}}</div><div>Clinician Located: {{Clinician Home Address* [place] Office Address Patient?s Home Address}} </div><div>Patient physically located at: {{Patient's Home Address* [place] Location, Name of Facility, City/State SNF Location, Name of Facility, City/State LTC Location, Name of Facility, City/State Other Location, City, State}}</div><div>
</div> Review of Systems None recorded. Physical Exam None recorded.
--- OUTSIDE RECORDS SUMMARY | 2022-02-04 23:24 | XMS_ITS ---
:1990 Author Care Team Providers Name Role Phone STEPHANIE RODRIGUEZ AMILCAR Nurse Practitioner [phone] Parris Kngiht (mother) Patient Designee [phone] HEYDI BHAGAT MD Transplant Roller Inspector [phone] [facility] CARE TEAM Palliative Care [phone] TAYLOR PAUL RN Palliative Care [phone] DOMINICK TODD MD Primary Care Provider [phone] CORNELL [facility] Recreation Attendant [phone] THOMAS JERNIGAN CCS OTHER [phone] Allergies Code Code System Name Reaction Severity [...] 12/01/2021 Stephanie Rodriguez CNP: [address] [place] [address], Ph. 11/27/2021 Taylor Paul RN: [address] [place] [address], Ph. 11/05/2021 Stephanie Rodriguez CNP: [address] [facility] [place] [address], Ph. 10/14/2021 Evi Biggs LPN: [address] [place] [address], Ph. Social History None recorded. Vaccine List None recorded. Plan of Care Patient Instructions Patient instructed to call with [employer] ns or concerns. Patient instructed to call with [employer] ns or concerns. Reminders Provider Appointments None recorded. ? ? Lab None recorded. ? ? Referral None recorded. ? ? Procedures None recorded. ? ? Surgeries None recorded. ? ? Imaging None recorded. ? ? Vitals Height Weight BMI Blood Pressure 5 ft 2 in 133 lbs 24.3 kg/m2 98/58 mm[Hg]
--- OUTSIDE RECORDS SUMMARY | 2022-02-04 23:24 | XMS_ITS | Encounter Summary ---
:1990 Author Organization [address] [address] Phone Care Team Providers Name Role Phone Unavailable Primary Care Provider Unavailable Encounter Details Date Type Department Care Team Description 07/15/2021 Nurse Triage [facility] Contact Center Cary Segura, RN [facility] [address] [place] [address] [place] [address] Social History Tobacco Use Types Packs/Day Years Used Date Smoking Tobacco: Never Assessed Sex Assigned at Date Recorded Not on file COVID-19 Exposure Response Date Recorded In the last 10 days, have you been in contact with No / Unsu re 07/08/2021 9:38 AM [employer] someone who was confirmed or suspected to have Coronavirus/COVID-19? documented as of this encounter Miscellaneous Notes Telephone Encounter - Cary Segura RN - 07/15/2021 9:06 AM CDT D: Telephone call received from patient questioning why she was not give blood when she was transferred to [facility] from [facility]. A: Spoke with caller and advised [...]
--- OUTSIDE RECORDS SUMMARY | 2022-02-04 23:24 | XMS_ITS | Clinical Summary ---
:1990 Author Organization [employer] Address [address] [place] [address] Phone Care Team Providers Name Role Phone Unavailable Primary Care Provider Unavailable Source Comments [employer] is fully rolled out on [employer]. Last update 10/05/08.[email or web address] Allergies Active Allergy Reactions Severity Noted Date [...] Blood Pressure 114/67 07/08/2021 4:03 PM PLANT OPERATIONS MANAGER Pulse 82 07/08/2021 4:03 PM PLANT OPERATIONS MANAGER Temperature 36.9 ??C (98.5 ??F) 07/08/2021 6:31 AM PLANT OPERATIONS MANAGER Respiratory Rate 16 07/08/2021 4:03 PM PLANT OPERATIONS MANAGER Oxygen Saturation 98% 07/08/2021 4:03 PM PLANT OPERATIONS MANAGER Inhaled Oxygen Concentration - - Weight [...] Type / Group [employer] BLUE [id number] 2018-Sung [address] [address] [place] Man[place] [address] (Home) [address] [place] [phone]
--- OUTSIDE RECORDS SUMMARY | 2022-02-04 23:24 | XMS_ITS | Clinical Summary ---
:1990 Author Organization [facility] Address [address] [place] [address] Care Team Providers Name Role Phone Clinic, [facility] Primary Care Provider [facility], [facility] Unavailable [phone] Allergies Active Allergy Reactions Severity Noted Date [...] Addre ss Type Group [employer] [facility] [id number] 2018-Present [phone] [address] [address] [place] [address] CariasCatia Patrica Personal/Family Self 1990 [address] (Home) [address] [place] [address] Advance Directives For more information, please contact: [phone] Latest Code Status on File Code Status Date Activated Date Inactivated Comments Full Code 09/30/2018 4:42 AM 10/02/2018 6:07 PM How was code status determined? 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
--- OUTSIDE RECORDS SUMMARY | 2022-02-04 23:24 | XMS_ITS | Encounter Summary ---
:1990 Author Organization [facility] Address [address] [place] [address] Care Team Providers Name Role Phone [facility], [facility] Primary Care Provider [phone] [facility] Unavailable [phone] Reason for Referral (Routine) - Closed Specialty Diagnoses / Procedures Referred By Contact Refer red To Contact Procedures Gonzalo Tavera MD Return to previous diet [address] [place], [place] [address] Referral ID Status Reason Start Date Expiration Date Visits Requ ested Visits Authorized [id number] Closed 10/02/2018 10/02/2019 1 1 (Routine) - Closed Specialty Diagnoses / Procedures Referred By Contact Refer red To Contact Procedures Gonzalo Tavera MD Normal activity as tolerated [address] [place], [place] [address] Referral ID Status Reason Start Date Expiration Date Visits Requ ested Visits Authorized [id number] Closed 10/02/2018 10/02/2019 1 1 (Routine) - Closed Specialty Diagnoses / Procedures Referred By Contact Refer red To Contact Gonzalo Tavera MD [facility], [facility] [address] [place], [place] [address] 2 [place] [address] Fax: Referral ID Status Reason Start Date Expiration Date Visits Requ ested Visits Authorized [id number] Closed 10/02/2018 10/02/2019 1 1 Question Answer Specify time frame for follow up? 1 Week (Routine) - Closed Specialty Diagnoses / Procedures Referred By Contact Refer red To Contact Procedures Gonzalo Tavera MD [facility] [place] [address] Referral ID Status Reason Start Date Expiration Date Visits Requ ested Visits Authorized [id number] Closed 10/02/2018 10/02/2019 1 1 Reason for Visit Inpatient Admission Specialty Diagnoses / Procedures Referred By Contact Refer red To Contact Diagnoses Acute hepatitis Hepatitis, Acute Referral ID Status Reason Start Date Expiration Date Visits Requ ested Visits Authorized [id number] 1 1 Encounter Details Date Type Department Care Team Description 09/30/2018 - Hospital Encounter W2 Hm-Hospitalist [facility] [place] [id number] Acute hepatitis 10/02/[address] [place] [address] Gonzalo Tavera MD [address] [place], [place] [address]k[facility]y [place] [address] [place] [address] Social History Tobacco Use Types Packs/Day Years [...] Tavera MD - 10/02/2018 12:02 PM CDT [facility] HOSPITAL DISCHARGE SUMMARY Patient Name: Catia Carias Date of : 1990 Admission Date: 09/30/2018 Discharge Date: 10/02/2018 She will be discharged to home. Primary care: [facility] Consultants: 1. Gastroenterology 2. Orthopedics DISCHARGE DIAGNOSES: [...] to Excess Tylenol Use:??Presented as direct admissionfrom [address] in [place]??with??abdominal pain and vomiting??x 2??days. ??She had been [...] open reduction internal fixation on 08/29/[address]??Dr[address] Omar Rodriguez. ??Has been having [...] Up Referral Priority: Routine Referred to Provider: [facility] Number of Visits Requested: [...] Tavera MD, Hospitalist Internal Medicine and Pediatrics [facility] Medicine Time: over 30 minutes documented in [...] live longer. For further assistanceplease call the [employer] Helpline at [phone] or go to their website [email or web address]. documented in this encounter Medications at Time [...] 10/02/2018 12:02 PM CDT Catia Carias 1990 [id number] P: Discharge A: Discharged ambulatory to home at 1145 escorted by self I: Discharge information and arrangements included: review of written discharge instructions, belongings list completed. R:Patient expressed understanding of information.. Andreas Paul RN - 10/02/2018 3:52 AM CDT Med-Surg Care Progression Note Type: Shift to shift summary [id number] Length of stay: 2 days Code Status: [...] with questions or concerns. Criselda Coker MD [facility] [phone] Evi Londono RN - 10/01/2018 12:22 PM [...] Tavera MD - 10/01/2018 10:32 AM CDT [facility] PROGRESS NOTE CHIEF COMPLAINT: Arm pain SUBJECTIVE: [...] Tylenol Use: Presented as direct admission from [address] in [place] with abdominal pain and vomiting x 2 [...] open reduction internal fixation on 08/29/[address] Omar Rodriguez. Has been [...] pain remains uncontrolled may need to consider ELEMENTARY SUPERVISOR. Consulted Orthopedics for assistance with management. Defer further imaging to Orthopedics. I'm worried about progressive or new ulnar nerve impingement or damage. Will start gabapentin 300 mg TID. 3. Recent Pancreatitis: Was admitted at [address] in [place] 09/08/2018 - 09/11/2018 for pancreatitis. Etiology was [...] Tavera MD, Hospitalist Internal Medicine and Pediatrics [facility] Medicine Pager: [phone] SKIN: Surgical Incision Left;Posterior Elbow (Active) No [...] DVT/Anticoagulation Progression: Not [facility] [...] tachy up into 130s. ) MD/Provider's Name aRlph Time Notified 1430 Ciara Booker RN Ciara [...] Progression: Not applicable Spoke with Dung from [employer] this AM. He wants us to check LFTs and INR at 2300 tonight, these have been scheduled. Someone from [employer] will call back around 0000 tonight [...] to call for help, name of assigned veterinarian laboratory animal care, initialphysician orders, hourly rounding procedures, belongings checklist, [...] stability. The patient is direct admission from [facility] with acute hepatitis likely due to [...] 11:00 AM on . Per labs from [facility] LFTs are elevated reveals ALt of 624, AST of 3,955, and ALKP of 186. Total bilirubin is 1.2. Creatinine is 0.56, sodium is 136, HCO3 of 16, and potassium 4.5. INR is 1.5. Acetaminophem level is < 3. Lipase is 78.5. Serum test is negative. Lactic acid level is 2.9. Suspect livery dysfunction is contributing lactic acidosis at outside facility. [facility] Physician discussed case w/ GI Physician Dr. Davis who recommended pt be transferred [facility] as direct admission and be started [...] far since being started on it at [facility] in conjuction with medical staff manager and Pharmacist. Has received initial bag of [...] 09/30/2018 3:39 AM CDT Received report from [facility] in [place]. 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 LFT's: AST 3955 ALT 624 Alk Phos 186 Lactate 2.9 Pt received 1 liter LR in the ED and the N-acetyl cysteine was started. First dosing [place] [address]458 mg in200 ml, completed in the ED, and 3380mg in 500 ml was initiated before transport. documented in this encounter H&P Notes Gonzalo Tavera MD - 09/30/2018 9:58 AM CDT [facility] ADMISSION HISTORY AND PHYSICAL Patient Name: Catia Carias Address: [address] [place] [address] Age: 28 y.o. Sex: Female Admission Date/Time: 09/30/2018 4:11 AM Primary Care Provider: [facility] Admitting provider: [facility]-Hospitalist, Dr. Gonzalo Tavera Informant: patient as well [...] open reduction internal fixation on 08/29/[address] Catia states that she was discharged [...] Oxycodone. Catia ended up being admitted at [address] 09/08/18 - 09/11/18 for acute pancreatitis which initially required Morphine ELEMENTARY SUPERVISOR for pain c ontrol. Catia followed up [...] vomited 6 times therefore she went to [place] [address] emergency department to be evaluated. Mario Alberto kang states that she only has abdominal pain when she is vomiting. She vomited multiple times in the emergency department. She was transferred to [facility] for further evaluation by Gastroenterology and states [...] file Gets together: Not on file Attends episcopalian service: Not on file Active member of [...] Tylenol Use: Presented as direct admission from [address] in [place] with abdominal pain and vomiting x 2 [...] open reduction internal fixation on 08/29/[address] Omar Rodriguez. Has been having uncontrolled neuropathic pain which has not responded to Gabapentin. Pain has minimally improved prior to admission with Percocet or Oxycodone. Treating pain with PRN IV Morphine. If pain remains uncontrolled may need to consider ELEMENTARY SUPERVISOR. Consulted Orthopedics for assistance with management. Defer further imaging to Orthopedics. I'm worried about progressive or new ulnar nerve impingement or damage. Will start gabapentin 300 mg TID. 3. Recent Pancreatitis: Was admitted at [address] in [place] 09/08/2018 - 09/11/2018 for pancreatitis. Etiology was [...] our joint decision making. Kimberly Rosas PA-C [facility] Medicine Service Pager: [phone] ADDENDUM: Chart reviewed. Patient seen and examined [...] Tavera MD, Hospitalist Internal Medicine and Pediatrics [facility] Medicine Pager: [phone] documented in this encounter Consult Notes Xuan Block APRN, PHP WEBSITE DEVELOPER - 09/30/2018 2:24 PM CDTAssociated Order(s): CONSULT ORTHOPEDIC SURGERY ORTHOPEDIC CONSULT CHIEF COMPLAINT: left arm nerve pain HISTORY of PRESENT ILLNESS: Catia Carias is a 28 y.o. year old female who had an orif of her left distal humerus in [place] on 08/29/18. She has had 2 f/u [...] Discussed with Hospital medicine. Xuan Block APRN, PHP WEBSITE DEVELOPER Felicita Dia PA-C - 09/30/2018 10:19 AM CDTAssociated Order(s): CONSULT GASTROENTEROLOGY Images from the original note were not included. GI CONSULT SERVICE CONSULT NOTE Patient Name: Catia Carias Admission Date/Time: 09/30/2018 4:11 AM [facility] Phys[facility]: Dr. Conrad [facility] Attending Physician: [facility]-Hospitalist I was asked to see this patient at the request of Dr. Conrad for evaluation of acute hepatitis. REASON FOR CONSULTATION: Acute hepatitis CC: abdominal pain, nausea and vomiting HISTORY OF PRESENT ILLNESS: 28 y.o. female with a history of ORIF of left upper extremity and acute pancreatitis of unclear etiology 10 days postop who directly admitted from [facility] ED with acute hepatitis on 09/30/2018. [...] several times a week. She presented to [facility] ED 09/29 with 2 3 days of [...] on NAC protocol. She was transferred to [facility]. PAST MEDICAL HISTORY: Past Medical History: Diagnosis [...] will continue to follow. Felicita Dia PA-C [facility] Pager: Viewpoints Weekends and after 5 p.m., call [phone] documented in this encounter Nursing Notes Jyoti [...] d/c. Should d/c needs arise, please page/call Track Car Operator to update. Care management is available should further needs arise. Barriers to discharge: Medical stability Care management will continue to follow. Ivet Bob RN Case Manager 2W Observation Unit Pager: [phone] documented in this encounter Miscellaneous Notes Result Encounter Note - Sammy Mack PA-C - 10/02/2018 12:02 PM CDT SAMMY Screen positive. Forwarded to Dr. Tavera. Sammy Mack PA-C [facility] Medicine Service Pager: [phone] Med Reconciliation - Emperatriz Corral - 09/30/2018 1:52 PM CDT PHARMACY MEDICATION RECONCILIATION NOTE MEDICATION RECONCILIATION on admission by pharmacy has been completed. Prior to admission medications were reviewed with patient and [facility] presciption refill information. The [employer] medication list has been updated and reflected in the chart below. Please use the [employer] medication section for ordering home doses during admission. Medication related issues including pertinent changes made to the [employer] list by pharmacy: (discrepancies, interactions, additions, removal, [...] this patient. Loreta Pino, Pharm D Phone #:[phone] Time spent reconciling meds:20 min documented in [...] Signature PROTIME 12.9 10.0 - 13.0 10/02/2018 [facility] [facility] sec. 8:58 AM CDT HEALTH LABORATORY INR 1.2 1.0 - 1.2 10/02/2018 [facility] 2] 8:58 AM CDT HEALTH LABORATORY Specimen Anatomical Collection Method Collection Time Receive d Time (Source) Location / / Volume Laterality Blood 10/02/2018 8:23 AM 9 8:40 CDT AM CDT Kimberly Rosas PA-C COAGULATION ORDERABLE Performing Organization Address [facility] Phon e Number [facility] [address] [place] [address] LABORATORY Smooth Muscle Antibody (10/02/2018 8:22 AM CDT) [facility] gist Method Time Signature Smooth Muscle Negative Negative 10/04/2018 [facility] Screen 10:17 AM CDT LABORATORIES Comment: ADDITIONAL INFORMATIO N This test was developed and its performa nce characteristics determined by [facility] in a manner co nsistent with CLIA requirements. This test has not been norah ared or approved by the U.S. Food and Drug Administration. Test Performed by: [facility] [address] [place], [place] [address] Specimen Anatomical Collection Method Collection Time Receive d Time (Source) Location / / Volume Laterality Blood 10/02/2018 8:22 AM 9 8:39 CDT AM CDT Criselda Coker MD SEND OUT ORDERABLE Performing Organization Address City/[facility]/ZIP [facility] Phon e Number [facility] [address] [employer] [address] [place] [address] (ABNORMAL) CBC- Daily AM (10/02/2018 8:22 AM CDT)Only the most recent of2 resultswithin the time period is included. Patholo gist Method Time Signature WBC 7.5 4.3 - 10.8 10/02/2018 [facility] [place] 2[place] K/uL 8:45 AM [facility] HEALTH LABORATORY RBC 3.77 (L) 4.20 - 10/02/2018 [facility]NOTE 2] 5.40 M/uL 8:45 AM [facility] LABORATORY HEMOGLOBIN 13.0 12.0 - 10/02/2018 [facility] [place]NOTE 2] 16.0 gm/dL 8:45 AM [facility] LABORATORY HEMATOCRIT 39.2 36.0 - 10/02/2018 [facility] [place]NOTE 2] 48.0 % 8:45 AM [facility] LABORATORY MCV 104 (H) 80 - 100 10/02/2018 [facility] [place] 2[facility] fl 8:45 AM [facility] LABORATORY MCH 35 (H) 27 - 33 pg 10/02/2018 [facility] [place]NOTE 2] 8:45 AM [facility] LABORATORY MCHC 33 33 - 36 10/02/2018 [facility] [place]NOTE 2] gm/dL 8:45 AM [facility] LABORATORY RDW 13.3 11.5 - 10/02/2018 [facility]NOTE 2] 14.5 % 8:45 AM [facility] LABORATORY PLATELET COUNT 218 150 - 400 10/02/2018 [facility] [place] 2[facility] K/UL 8:45 AM [facility] LABORATORY MPV 10.3 6.5 - 12 10/02/2018 [facility] 2] 8:45 AM [facility] LABORATORY Specimen Anatomical Collection Method Collection Time Receive d Time (Source) Location / / Volume Laterality Blood 10/02/2018 8:22 AM 9 8:41 CDT AM CDT Marli Girard RN HEMATOLOGY ORDERABLE Performing Organization Address City/State/ZIP Code Phon e Number [facility] [address] [place] [address] LABORATORY Lipase (10/02/2018 8:22 AM CDT)Only the most recent of3 resultswithin the time period is included. P athologist Signature LIPASE 221 73 - 350 10/02/2018 [facility] [place]NOTE 2[facility] IU/L 9:06 AM [facility] HEALTH LABORATORY Specimen Anatomical Collection Method Collection Time Receive d Time (Source) Location / / Volume Laterality Blood 10/02/2018 8:22 AM 9 8:40 CDT AM CDT Kimberly Rosas PA-C CHEMISTRY ORDERABLE Performing Organization Address City/State/ZIP Code Phon e Number [facility] [address] [place] [address] [phone] LABORATORY (ABNORMAL) Basic Metabolic Profile Daily AM (10/02/2018 8:22 AM CDT)Only the most recent of4 resultswithin the time period is included. [facility] Method Time Signature SODIUM 140 136 - 145 10/02/2018 [facility] [place] 2] mmol/L 9:18 AM [facility] LABORATORY POTASSIUM 4.1 3.5 - 5.1 10/02/2018 [facility] [place]NOTE 2] mmol/L 9:18 AM [facility] LABORATORY CHLORIDE 107 98 - 112 10/02/2018 [facility]NOTE 2] mmol/L 9:18 AM [facility] LABORATORY CARBON DIOXIDE 28 21 - 32 10/02/2018 [facility]NOTE 2] mmol/L 9:18 AM [facility] LABORATORY BUN (UREA 1 (L) 7 - 24 10/02/2018 [facility]NOTE 2] NITRO) mg/dL 9:18 AM [facility] LABORATORY CREATININE 0.35 (L) 0.55 - 10/02/2018 [facility] [place]NOTE 2] 1.02 mg/dL 9:18 AM [facility] LABORATORY EST GFR >60 >60 mL/min 10/02/2018 [facility] [place]NOTE 2] (CKD-EPI) 9:18 AM [facility] LABORATORY EST GFR IF >60 >60 mL/min 10/02/2018 [facility] [place]NOTE 2] AM 9:18 AM [facility] LABORATORY GLUCOSE 100 74 - 106 10/02/2018 [facility]NOTE 2] mg/dL 9:18 AM [facility] LABORATORY CALCIUM, SERUM 8.6 8.5 - 10.1 10/02/2018 [facility] mg/dL 9:18 AM [facility] LABORATORY ANION GAP 5.0 0.0 - 15.0 10/02/2018 [facility]NOTE 2] mmol/L 9:18 AM [facility] LABORATORY Specimen Anatomical Collection Method Collection Time Receive d Time (Source) Location / / Volume Laterality Blood 10/02/2018 8:22 AM 9 8:40 CDT AM CDT Kimberly Rosas PA-C CHEMISTRY ORDERABLE Performing Organization Address City/State/ZIP Code Phon e Number [facility] [address] [place] [address] LABORATORY (ABNORMAL) Liver Profile (10/02/2018 8:22 AM CDT)Only the most recent of5 resultswithin the time period is included. Analysis Performed At Patho logist Time Signature ALT 271 (H) 12 - 68 10/02/2018 [facility] [place] IU/L 9:18 AM T HEALTH LABORATORY ALKALINE 165 (H) 45 - 117 10/02/2018 [facility]NOTE 2] P'TASE IU/L 9:18 AM [facility] LABORATORY AST (SGOT) 274 (H) 12 - 37 10/02/2018 [facility]NOTE 2] IU/L 9:18 AM T [facility] LABORATORY PROTEIN TOTAL 6.0 (L) 6.4 - 8.2 10/02/2018 [facility]NOTE 2] g/dL 9:18 AM [facility] LABORATORY ALBUMIN 3.0 (L) 3.4 - 5.0 10/02/2018 [facility] [place]NOTE 2] g/dL 9:18 AM T [facility] LABORATORY BILIRUBIN-DIRE 0.56 (H) 0.05 - 10/02/2018 [facility] 2[facility] CT 0.24 mg/dL 9:18 AM [facility] LABORATORY BILIRUBIN-TOTA 1.2 (H) 0.2 - 1.0 10/02/2018 [facility]NOTE 2] L mg/dL 9:18 AM [facility] LABORATORY Specimen Anatomical Collection Method Collection Time Receive d Time (Source) Location / / Volume Laterality Blood 10/02/2018 8:22 AM 9 8:40 CDT AM CDT Kimberly Rosas PA-C CHEMISTRY ORDERABLE Performing Organization Address City/State/ZIP Code Phon e Number [facility] [address] [place] [address] LABORATORY Magnesium (10/02/2018 8:22 AM CDT)Only the most recent of4 resultswithin the time period is included. athologist Signature Magnesium 2.0 1.8 - 2.4 10/02/2018 [facility]NOTE 2] mg/dL 9:07 AM CDT HEALTH LABORATORY Specimen Anatomical Collection Method Collection Time Receive d Time (Source) Location / / Volume Laterality Blood 10/02/2018 8:22 AM 9 8:40 CDT AM CDT Robby Conrad MD CHEMISTRY ORDERABLE Performing Organization Address City/[facility]/ZIP [facility] Phon e Number [facility] [address] [place] [address] [place] [address] LABORATORY Potassium, Serum (10/01/2018 8:16 PM CDT)Only the most recent of3 resultswithin the time period is included. P athologist Signature POTASSIUM 4.2 3.5 - 5.1 10/01/2018 [facility] [place] 2] mmol/L 8:50 PM CDT HEALTH LABORATORY Specimen Anatomical Collection Method Collection Time Receive d Time (Source) Location / / Volume Laterality Blood 10/01/2018 8:16 PM 9 8:32 CDT PM CDT aMrli Girard RN CHEMISTRY ORDERABLE Performing Organization Address [facility] Phon e Number [address] [place] [address] [phone] LABORATORY (ABNORMAL) Acetaminophen (10/01/2018 4:43 PM CDT)Only the most recent of3 resultswithin the time period is included. Patholo gist Method Time Signature ACETAMINOPHEN 2 (L) 10 - 30 10/01/2018 [facility] 2[facility] (TYLENOL) ug/mL 5:34 PM CDT HEALTH LABORATORY Specimen Anatomical Collection Method Collection Time Receive d Time (Source) Location / / Volume Laterality Blood 10/01/2018 4:43 PM 9 5:07 CDT PM CDT Erika Silver DO CHEMISTRY ORDERABLE Performing Organization Address City/[facility]/ZIP Code Phon e Number [address] [place] [address] LABORATORY (ABNORMAL) IgG (10/01/2018 7:08 AM CDT) P athologist Signature IGG 530 (L) 700-1,600 10/01/2018 [facility] 2[facility] mg/dL 2:03 PM CDT HEALTH LABORATORY Specimen Anatomical Collection Method Collection Time Receive d Time (Source) Location / / Volume Laterality Blood 10/01/2018 7:08 AM 9 7:22 CDT AM CDT Criselda Coker MD CHEMISTRY ORDERABLE Performing Organization Address City/State/ZIP Code Phon e Number [facility] [place] [address] LABORATORY (ABNORMAL) SAMMY Screen (10/01/2018 7:08 AM CDT) Analysis Performed At Patho logist Time Signature SAMMY SCRN Positive (A) Negative 10/03/2018 [facility] [place] 2] 1:37 PM CDT HEALTH LABORATORY Specimen Anatomical Collection Method Collection Time Receive d Time (Source) Location / / Volume Laterality Blood 10/01/2018 7:08 AM 9 7:22 CDT AM CDT Criselda Coker MD CHEMISTRY ORDERABLE Performing Organization Address City/[facility]/ZIP Code Phon e Number [facility] [address] [address] LABORATORY XR ELBOW LT (09/30/2018 1:16 PM [...] SIGNED BY DR. Lloyd Arcos Xuan Block BEAN SORTER, PHP WEBSITE DEVELOPER XRAY ORDERABLE Hepatitis A/B/C Panel (09/30/2018 6:42 AM CDT) [facility] Method Time Signature HEP BC IGM DELBERT Non-Reacti Non-Reacti 09/30/2018 [facility] AL ve ve 8:24 AM CDT HEALTH LABORATORY HEP A IGM DELBERT Non-Reacti Non-Reacti 09/30/2018 [facility] L ve ve 8:24 AM CDT HEALTH LABORATORY HEP BS ANTIGEN Non-Reacti Non-Reacti 09/30/2018 [facility] AL ve ve 8:24 AM CDT HEALTH LABORATORY Hepatitis C Non-Reacti Non-Reacti 09/30/2018 [facility] [place] Antibody ve ve 8:24 AM CDT HEALTH LABORATORY Specimen Anatomical Collection Method Collection Time Receive d Time (Source) Location / / Volume Laterality Blood 09/30/2018 6:42 AM 9 6:59 CDT AM CDT Robby Conrad MD IMMUNOLOGY ORDERABLE Performing Organization Address City/[facility]/ZIP Code Phon e Number [facility] [address] [place] [address] LABORATORY Lactic Acid (09/30/2018 6:42 AM CDT) athologist Signature LACTIC ACID 1.9 0.7 - 2.1 09/30/2018 [facility] [place] 2] mmol/L 7:03 AM CDT [facility] LABORATORY Specimen Anatomical Collection Method Collection Time Receive d Time (Source) Location / / Volume Laterality Blood 09/30/2018 6:42 AM 9 7:00 CDT AM CDT Robby Conrad MD CHEMISTRY ORDERABLE Performing Organization Address City/[facility]/ZIP Code Phon e Number [facility] [address] [place] [address] [phone] LABORATORY (ABNORMAL) CBC / Diff (09/30/2018 6:42 AM CDT) [facility] Method Time Signature WBC 14.6 (H) 4.3 - 09/30/2018 [facility] [place]NOTE 2] 10.8 K/uL 6:59 AM CDT HEALTH LABORATORY RBC 3.90 (L) 4.20 - 09/30/2018 [facility] [place]NOTE 2] 5.40 M/uL 6:59 AM CDT HEALTH LABORATORY HEMOGLOBIN 13.6 12.0 - 09/30/2018 [facility] [place]NOTE 2] 16.0 6:59 AM CDT HEALTH gm/dL LABORATORY HEMATOCRIT 39.9 36.0 - 09/30/2018 [facility] [place]NOTE 2] 48.0 % 6:59 AM CDT HEALTH LABORATORY MCV 102 (H) 80 - 100 09/30/2018 [facility] [place]NOTE 2] fl 6:59 AM CDT HEALTH LABORATORY MCH 35 (H) 27 - 33 09/30/2018 [facility] [place]NOTE 2] pg 6:59 AM CDT HEALTH LABORATORY MCHC 34 33 - 36 09/30/2018 [facility] [place]NOTE 2] gm/dL 6:59 AM CDT HEALTH LABORATORY RDW 13.2 11.5 - 09/30/2018 [facility] [place]NOTE 2] 14.5 % 6:59 AM CDT HEALTH LABORATORY PLATELET COUNT 257 150 - 400 09/30/2018 [facility] [place]NOTE 2] K/UL 6:59 AM CDT HEALTH LABORATORY MPV 9.7 6.5 - 12 09/30/2018 [facility] [place]NOTE 2] 6:59 AM CDT HEALTH LABORATORY PMN % 90.9 % 09/30/2018 [facility] [place]NOTE 2] 6:59 AM CDT HEALTH LABORATORY IG% 0.3 <=1.0 % 09/30/2018 [facility] [place]NOTE 2] 6:59 AM CDT HEALTH LABORATORY LYMPH % 5.1 % 09/30/2018 [facility] [place]NOTE 2] 6:59 AM CDT HEALTH LABORATORY MONO % 3.2 % 09/30/2018 [facility] [place]NOTE 2] 6:59 AM CDT HEALTH LABORATORY EOS % 0.3 % 09/30/2018 [facility] [place]NOTE 2] 6:59 AM CDT HEALTH LABORATORY BASO % 0.2 % 09/30/2018 [facility] [place]NOTE 2] 6:59 AM CDT HEALTH LABORATORY PMN ABSOLUTE 13.28 (H) 1.80 - 09/30/2018 [facility] [place]NOTE 2] 7.80 K/uL 6:59 AM CDT HEALTH LABORATORY IG ABSOLUTE 0.05 K/uL 09/30/2018 [facility] [place]NOTE 2] 6:59 AM CDT HEALTH LABORATORY LYMPH ABSOLUTE 0.74 (L) 1.00 - 09/30/2018 [facility] [place]NOTE 2] 4.00 K/uL 6:59 AM CDT HEALTH LABORATORY MONO ABSOLUTE 0.47 0.00 - 09/30/2018 [facility] [place]NOTE 2] 1.00 K/uL 6:59 AM CDT HEALTH LABORATORY EOS ABSOLUTE 0.04 0.00 - 09/30/2018 [facility] [place]NOTE 2] 0.45 K/uL 6:59 AM CDT HEALTH LABORATORY BASO ABSOLUTE 0.03 0.00 - 09/30/2018 [facility] [place]NOTE 2] 0.20 K/uL 6:59 AM CDT HEALTH LABORATORY NUCL RBC % 0.0 0.0 - 0.0 09/30/2018 [facility] [place]NOTE 2] /100 WBC 6:59 AM CDT HEALTH LABORATORY NUCL RBC 0.00 K/uL 09/30/2018 [facility] [place]NOTE 2] ABSOLUTE 6:59 AM CDT HEALTH LABORATORY Specimen Anatomical Collection Method Collection Time Receive d Time (Source) Location / / Volume Laterality Blood 09/30/2018 6:42 AM 9 6:56 CDT AM CDT Robby A Matter HEMATOLOGY ORDERABLE Performing Organization Address City/State/ZIP Code Phon e Number [facility] [address] [place] [address] LABORATORY documented in this encounter Visit Diagnoses [...] 15mg. documented in this encounter Care Teams Galley Worker Relationship Specialty Start Date End Date [facility] PCP - General 09/30/18 [address] [place] [phone] [facility] PCP - Primary Care Clinic [address] [place] [phone] documented as of this encounter
--- OUTSIDE RECORDS SUMMARY | 2022-02-04 23:24 | XMS_ITS | Clinical Summary ---
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 Added automatically from request for dolly daley [phone] Thrombocytopenia 07/01/2021 Alcoholic cirrhosis 03/12/2021 Acute respiratory [...] signed 01/12/2017 Overview: Signed: 07/05/12-Kiana Pino APRN, LANGUAGE AND LITERATURE DIVISION CHAIR - p sychiatry Anxiety disorder; NOS; APPLE [...] Alive Sister 1 Alive x2 Sister 2 Adnia Social History Tobacco Use Types Packs/Day Years [...] lb 8 ral oz) Comments: [place]. patient did meet couple. Last Filed [...] 2013 18-79 Medical Devices Implanted Type Area [employer] Expedition Guide Device Shelf Model / Identifier Expiration Serial / Date Lot Partially Threaded Screws Left: Donora [id number] / Implanted: Qty: 1 on 08/29/2018 by Omar Montesinos MD at [facility] [employer] / Description: From [facility] zay tray Explanted Type Area [employer] Guide Device Shelf Model / Identifier Expiration Serial / Date Lot 2.7mm Locking Screw Left: Donora [id number] / Explanted: Qty: 1 on 08/29/2018 by Omar Montesinos MD at [facility] [employer] / Description: From [facility] zay tray Distal Medial Humerus Plates Left: [employer] [id number] / Implanted: Qty: 1 on 08/29/2018 by Omar Montesinos MD at [facility] / Explanted: Qty: 1 on 06/27/2019 by Omar Montesinos MD at [facility] Description: Amos from [employer] elbow ad [...] report s are released immediately into your [facility] medical record. ??You may view this report [...] provider. If you have questions, please contact [facility] health care provider. INDICATION: Nasogastric tube placement. [...] (ABNORMAL) COVID 19 (11/09/2021 11:42 AM CDT) [facility] Method Time Signature COVID 19 Detected (A) Not detected 11/09/2021 [facility] 12:25 PM MEDICAL MOLECULAR CDT CENTER LABORATORY Specimen Anatomical Location / Collection Method Collection Hiro e Received Time (Source) Laterality / Volume Other SPECIMEN FROM Non-Blood / 11/09/2021 11:42 11/09/2021 NASOPHARYNGEAL Unknown AM CDT 11:55 AM CDT STRUCTURE / Unknown Narrative [facility] - 12:25 PM CDT This [...] Organization Address City/State/ZIP Code Phon e Number [facility] [address] [place] [address] COVID 19 COLLECTION (11/09/2021 11:42 AM CDT) Patholo gist Method Time Signature TESTING [facility] 11/09/2021 [place] LABORATORY Laboratory 11:55 AM MEDICAL CDT CENTER LABORATORY Comment: Specimen submitted to [facility] for testing. Specimen Anatomical Location / Collection Method Collection Hiro e Received Time (Source) Laterality / Volume Other SPECIMEN FROM Non-Blood / 11/09/2021 11:42 11/09/2021 NASOPHARYNGEAL Unknown AM CDT 11:55 AM CDT STRUCTURE / Unknown Mattie Burdick MD SEND OUTS Performing Organization Address City/[facility]/ZIP Code Phon e Number [facility] [address] [place] [address] (ABNORMAL) LACTATE VENOUS (11/09/2021 10:09 AM CDT)Only the most recent of2 resultswithin the time period is included. athologist Signature LACTATE,VENOUS 3.3 (H) 0.5 - 2.0 11/09/2021 [place] mmol/L 11:01 AM T [facility] LABORATORY Specimen Anatomical Collection Method Collection Time Receive d Time (Source) Location / / Volume Laterality Blood BLOOD SPECIMEN / Butterfly / 11/09/2021 10:09 022 Unknown Unknown AM CDT 10:11 AM CDT Dominick Hickey DO CHEMISTRY Performing Organization Address City/[facility]/ZIP Code Phon e Number [facility] [address] [place] [address] CT ABDOMEN PELVIS WO (11/09/2021 10:06 AM [...] report s are released immediately into your [facility] medical record. ??You may view this report [...] note that all CT scans at this [facility] use dose modulation, iterative reconstruction, [...] report s are released immediately into your [facility] medical record. ??You may view this report before your referring provider. ??If you have questions, please contact your health care provider. INDICATION: Mental status change. TECHNIQUE: Noncontrast CT images acquired through [employer]. COMPARISON: CT brain 12/11/2016. FINDINGS: The ventricles [...] note that all CT scans at this [facility] use dose modulation, iterative reconstruction, [...] provider. If you have questions, please contact [facility] care provider. INDICATION: Mental status change. TECHNIQUE: Noncontrast CT images acquired through [facility]. COMPARISON: CT brain 12/11/2016. FINDINGS: The [...] note that all CT scans at this [facility] use dose modulation, iterative reconstruction, and/or weight-based dosing when appropriate to reduce radiation dose to as low as reasonably achievable. Dictated by Conor Leon MD @ 2 10:18:10 AM (Electronically Signed) Dominick Hickey DO CT BLOOD CULTURE (11/09/2021 7:52 AM CDT)Only the most recent of2 resultswithin the time period is included. athologist Signature CULTURE No Growth. 11/14/2021 [place] 3:10 PM [facility] Specimen Anatomical Collection Method Collection Time Receive d Time (Source) Location / / Volume Laterality Blood BLOOD SPECIMEN / Butterfly / 11/09/2021 7:52 AM 11/09 7:55 Unknown Unknown CDT AM CDT Narrative [facility] - 3:10 PM CDT Low volume blood culture received; possi ble false negative culture. Dominick Hickey DO MICROBIOLOGY Performing Organization Address City/State/ZIP Code Phon e Number [facility] [address] [place] [address] (ABNORMAL) Drug Abuse Screen Rapid Urine Inhouse (11/09/2021 7:45 AM CDT) [facility] Method Time Signature THC Presumptive Not 11/09/2021 [place] METABOLITES,QU Positive-Uncon Detected 8:08 AM T MEDICAL NC firmed Result CENTER (A) LABORATORY PCP,QUAL Not Detected Not 11/09/2021 [place] Detected 8:08 AM [facility] COCAINE,QUAL Not Detected Not 11/09/2021 [place] Detected 8:08 AM [facility] METHAMPHETAMIN Not Detected Not 11/09/2021 [place] E, QUALITATIVE Detected 8:08 AM [facility] OPIATES,QUAL Not Detected Not 11/09/2021 [place] Detected 8:08 AM [facility] AMPHETAMINE, Not Detected Not 11/09/2021 [place] QUALITATIVE Detected 8:08 AM [facility] BENZODIAZEPINE Presumptive Not 11/09/2021 [place] S,QUAL Positive-Uncon Detected 8:08 AM [facility] MEDICAL firmed Result CENTER (A) LABORATORY TRICYCLICS,HONG Not Detected Not 11/09/2021 [place] L Detected 8:08 AM [facility] METHADONE, Not Detected Not 11/09/2021 [place] QUALITATIVE Detected 8:08 AM [facility] BARBITURATES,Q Not Detected Not 11/09/2021 [place] UAL Detected 8:08 AM [facility] OXYCODONE, Presumptive Not 11/09/2021 [place] QUALITATIVE Positive-Uncon Detected 8:08 AM [facility] MEDICAL firmed Result CENTER (A) LABORATORY BUPRENORPHINE, Not Detected Not 11/09/2021 [place] QUALITATIVE Detected 8:08 AM [facility] PROPOXYPHENE,Q Not Detected Not 11/09/2021 [place] UAL Detected 8:08 AM [facility] LABORATORY Specimen Anatomical Collection Method Collection Time Receive d Time (Source) Location / / Volume Laterality Urine URINE SPECIMEN / Non-Blood / 11/09/2021 7:45 AM 11/09 7:49 Unknown Unknown CDT AM CDT Narrative [facility] - 8:08 AM CDT Please [...] Organization Address City/State/ZIP Code Phon e Number [facility] [address] [place] [address] (ABNORMAL) URINALYSIS MICROSCOPIC (11/09/2021 7:45 AM CDT) [facility] gist Method Time Signature RBC None Seen 0-2, None 11/09/2021 [place] Seen /HPF 8:07 AM [facility] WBC 6-10 (A) 0-2, 3-5, 11/09/2021 [place] None Seen 8:07 AM [facility] /HPF LABORATORY BACTERIA Many (A) None 11/09/2021 [place] Seen, 8:07 AM [facility] Rare, Few LABORATORY Bacteria/ HPF EPITHELIAL None Seen None 11/09/2021 [facility] CELLS Seen, Few 8:07 AM [facility] Epi/HPF LABORATORY RENAL Few Few 11/09/2021 [place] EPITHELIAL 8:07 AM [facility] CELLS LABORATORY Mucus Present 11/09/2021 [place] 8:07 AM [facility] LAB[facility]ATORY HYALINE CASTS 6-10 (A) 0-2, 3-5 11/09/2021 [place] /LPF 8:07 AM [facility] LABORATORY WBC CASTS 0-2 (A) (none) 11/09/2021 [place] /LPF 8:07 AM [facility] Specimen Anatomical Collection Method Collection Time Receive d Time (Source) Location / / Volume Laterality Urine URINE SPECIMEN / Non-Blood / 11/09/2021 7:45 AM 11/09 7:49 Unknown Unknown CDT AM CDT Dominick Uriarteshanel [facility] URINE Performing Organization Address City/[facility]/ZIP Code Phon e Number [facility] [address] [place] [address] Urine Culture (11/09/2021 7:45 AM CDT) athologist Signature CULTURE No growth 11/10/2021 [place] Impressions (<1,000 6:53 AM T LABORATORY-CENT CFU/mL) [facility] LAB[facility]ATORY Specimen Anatomical Collection Method Collection Time Receive d Time (Source) Location / / Volume Laterality Urine URINE SPECIMEN / Non-Blood / 11/09/2021 7:45 AM 11/09 7:49 Unknown Unknown CDT AM CDT Dominicklencho Uriarteshanel Hickey DO MICROBIOLOGY Performing Organization Address City/State/ZIP Code Phon e Number [facility] [address] [facility] [address] [place] [address] LABORATORY-CENTRAL 1999 LABORATORY (ABNORMAL) Urinalysis W Reflex Microscopic if Positive (11/09/2021 7:45 AM CDT) [facility] Method Time Signature COLOR Yellow Yellow Color 11/09/2021 [facility] 8:00 AM [facility] CLARITY Slightly Clear 11/09/2021 [place] Cloudy (A) Clarity 8:00 AM [facility] LABORATORY SPECIFIC 1.010 1.010, 11/09/2021 [place] GRAVITY,URINE 1.015, 8:00 AM T MEDICAL 1.020, 1.025 [place] LAB[facility] PH,URINE 5.5 6.0, 7.0, 11/09/2021 [place] 8.0, 5.5, 8:00 AM [facility] 6.5, 7.5, CENTER 8.5 LABORATORY UROBILINOGEN, Increased (A) Normal EU/dl 11/09/2021 [facility]AL[facility] 8:00 AM [facility] LABORATORY PROTEIN, Trace (A) Negative 11/09/2021 [place] URINE mg/dL 8:00 AM [facility] LABORATORY GLUCOSE, Negative Negative 11/09/2021 [place] URINE mg/dL 8:00 AM [facility] LABORATORY KETONES,URINE Trace (A) Negative 11/09/2021 [place] mg/dL 8:00 AM [facility] LABORATORY BILIRUBIN,URI Abnormal (A) Negative 11/09/2021 [place] NE 8:00 AM [facility] Comment: A variety of metabolites and/or medications may result in a positive bilirubin result. Clinical correlation i s recommended. OCCULT BLOOD,URINE Negative Negative 11/09/2021 8:00 AM [facility] LABORATORY NITRITE Positive (A) Negative 11/09/2021 8:00 AM [facility] LABORATORY LEUKOCYTE ESTERASE Negative Negative 11/09/2021 8:00 AM [facility] LABORATORY Specimen Anatomical Collection Method Collection Time Receive d Time (Source) Location / / Volume Laterality Urine URINE SPECIMEN / Non-Blood / 11/09/2021 7:45 AM 11/09 7:49 Unknown Unknown [facility] Dominick Hickey DO URINE Performing Organization Address City/State/ZIP Code Phon e Number [facility] [address] [place] [address] (ABNORMAL) CBC WITH AUTO DIFFERENTIAL (11/09/2021 7:34 AM T) [facility] Method Time Signature WHITE BLOOD 12.8 (H) 4.5 - 11/09/2021 [facility] COUNT 11.0 8:16 AM [facility] thou/cu LABORATORY mm RED BLOOD COUNT 2.23 (L) 4.00 - 11/09/2021 [facility] 5.20 8:16 AM [facility] mil/cu mm LABORATORY HEMOGLOBIN 8.2 (L) 12.0 - 11/09/2021 [place] 16.0 g/dL 8:16 AM [facility] LABORATORY HEMATOCRIT 24.4 (L) 33.0 - 11/09/2021 [place] 51.0 % 8:16 AM [facility] LABORATORY MCV 109 (H) 80 - 100 11/09/2021 [place] fL 8:16 AM [facility] LABORATORY MCH 36.8 (H) 26.0 - 11/09/2021 [place] 34.0 pg 8:16 AM [facility] LABORATORY MCHC 33.6 32.0 - 11/09/2021 [place] 36.0 g/dL 8:16 AM [facility] LABORATORY RDW 14.9 11.5 - 11/09/2021 [place] 15.5 % 8:16 AM [facility] LABORATORY PLATELET COUNT 73 (L) 140 - 440 11/09/2021 [place] thou/cu 8:16 AM [facility] mm LABORATORY MPV 9.2 6.5 - 11/09/2021 [place] 11.0 fL 8:16 AM [facility] LABORATORY % NEUT 82.7 % 11/09/2021 [place] 8:16 AM [facility] LABORATORY % LYMPH 7.4 % 11/09/2021 [place] 8:16 AM [facility] LABORATORY % MONO 9.3 % 11/09/2021 [place] 8:16 AM [facility] LABORATORY % EOS 0.4 % 11/09/2021 [place] 8:16 AM [facility] LABORATORY % BASO 0.2 % 11/09/2021 [place] 8:16 AM [facility] LABORATORY ABSOLUTE 10.5 (H) 1.7 - 7.0 11/09/2021 [place] NEUTROPHILS thou/cu 8:16 AM [facility] mm LABORATORY ABSOLUTE 1.0 0.9 - 2.9 11/09/2021 [place] LYMPHOCYTES thou/cu 8:16 AM [facility] LABORATORY ABSOLUTE 1.2 (H) <0.9 11/09/2021 [place] MONOCYTES thou/cu 8:16 AM [facility] mm LABORATORY ABSOLUTE 0.1 <0.5 11/09/2021 [...] Unknown Unknown CDT AM CDT Dominick Bucio [facility] HEMATOLOGY Performing Organization Address City/[facility]/ZIP [facility] Phon e Number [facility] [address] [place] [address] TYPE AND SCREEN ONLY (11/09/2021 7:34 AM CDT) Patholo gist Method Time Signature ABORH B Rh 11/09/2021 [place] Positive 8:27 AM CDT [facility] LABORATORY BLOOD BANK ANTIBODY Negative Negative 11/09/2021 [facility] SCREEN 8:27 AM [facility] LABORATORY BLOOD BANK SPECIMEN 11/12/21 11/09/2021 [place] EXPIRATION 23:59 8:27 AM CDT MEDICAL DATE/TIME CENTER LABORATORY BLOOD BANK Specimen Anatomical Collection Method Collection Time Receive d Time (Source) Location / / Volume Laterality Blood BLOOD SPECIMEN / Butterfly / 11/09/2021 7:34 AM 11/09 7:40 Unknown Unknown CDT AM CDT Dominick Rupinder [facility] BLOOD BANK Performing Organization Address City/[facility]/ZIP Code Phon e Number [facility] [address] [place] [address] BLOOD BANK HCG Beta Quant, (11/09/2021 7:34 AM CDT) P athologist Signature HCG BETA <1 mIU/mL 11/09/2021 [place] QUANT,PREGNANC 8:20 AM CDT [facility] LABORATORY Specimen Anatomical Collection Method Collection Time Receive d Time (Source) Location / / Volume Laterality Blood BLOOD SPECIMEN / Butterfly / 11/09/2021 7:34 AM 11/09 7:39 Unknown Unknown CDT AM CDT Narrative [facility] - 8:20 AM CDT Expected Value for Healthy Non- premenopausal women <5mIU/mL ? FOR GESTATIONAL ASSESSMENT-See Range Table Below ? Weeks Post LMP ?Approximate HCG Range: ? (Last Menstrual Period) ?3-4 ?? Weeks ? (9-130) ?4-5 ?? Weeks ? ([phone]) ?5-6 ?? Weeks ? ([phone]) ?6-7 ?? Weeks ? ([phone]) ?7-12 ??Weeks ? ([id number]) ?12-16 Weeks ? ([id number]) ?16-29 Weeks ? ([phone]) ?29-41 Weeks ? ([phone]) Dominick Hickey DO CHEMISTRY Performing Organization Address City/State/ZIP Code Phon e Number [facility] [address] [place] [address] (ABNORMAL) BLOOD GAS,VENOUS (11/09/2021 7:34 AM CDT) [facility] Method Time Signature PH, VENOUS 7.42 7.32 - 7.43 11/09/2021 [place] 7:45 AM [facility] PCO2, VENOUS 29 (L) 41 - 51 11/09/2021 [facility] mmHg 7:45 AM [facility] PO2, VENOUS 101 (H) 35 - 40 11/09/2021 [facility] mmHg 7:45 AM [facility] HCO3,VENOUS 19 (L) 22 - 29 11/09/2021 [facility] mmol/L 7:45 AM [facility] LABORATORY BASE EXCESS, -4.4 (L) -2.0 - 3.0 11/09/2021 [facility] VENOUS, POCT 7:45 AM [facility] LABORATORY O2 SATURATION, >100 (H) 70 - 75 % 11/09/2021 [facility] VENOUS 7:45 AM [facility] LABOR[facility]ORY PATIENT 37.0 Degrees C 11/09/2021 [place] TEMPERATURE 7:45 AM [facility] LABORATORY Specimen Anatomical Collection Method Collection Time Receive d Time (Source) Location / / Volume Laterality Blood VENOUS BLOOD Butterfly / 11/09/2021 7:34 AM 7:40 SPECIMEN / Unknown Unknown CDT AM CDT Dominick Hickey DO CHEMISTRY Performing Organization Address City/[facility]/ZIP Code Phon e Number [facility] [address] [place] [address] Ethanol Serum or Plasma (11/09/2021 7:34 AM CDT) P athologist Signature ETHANOL <0.010 <0.010 g/dL 11/09/2021 [facility] 8:10 AM [facility] Specimen Anatomical Collection Method Collection Time Receive d Time (Source) Location / / Volume Laterality Blood BLOOD SPECIMEN / Butterfly / 11/09/2021 7:34 AM 11/09 7:39 Unknown Unknown CDT AM CDT Dominick Hickey DO CHEMISTRY Performing Organization Address City/State/ZIP Code Phon e Number [facility] [address] [place] [address] (ABNORMAL) C-REACTIVE PROTEIN (11/09/2021 7:34 AM CDT) Analysis Performed At Patho logist Time Signature C-REACTIVE 0.84 (H) <0.50 11/09/2021 [facility] PROTEIN mg/dL 8:08 AM CDT [facility] LABORATORY Specimen Anatomical Collection Method Collection Time Receive d Time (Source) Location / / Volume Laterality Blood BLOOD SPECIMEN / Butterfly / 11/09/2021 7:34 AM 11/09 7:39 Unknown Unknown CDT AM CDT Dominicklencho Uriarteshanel Hickey DO CHEMISTRY Performing Organization Address [facility] Code Phon e Number [facility] [address] [place] [address] (ABNORMAL) APTT (11/09/2021 7:34 AM CDT) P athologist Signature APTT 59 (H) 25 - 36 sec 11/09/2021 [facility] 7:50 AM CDT [facility] LABORATORY Specimen Anatomical Collection Method Collection Time Receive d Time (Source) Location / / Volume Laterality Blood BLOOD SPECIMEN / Butterfly / 11/09/2021 7:34 AM 11/09 7:40 Unknown Unknown CDT AM CDT [facility] LABORATORY - 7:50 AM CDT Therapeutic Range: 76-99 seconds Dominick Hickey DO HEMATOLOGY Performing Organization Address City/[facility]/ZIP Code Phon e Number [facility] [address] [place] [address] (ABNORMAL) Protime - INR (11/09/2021 7:34 AM CDT) P athologist Signature INR 3.4 (H) <1.3 11/09/2021 [facility] 7:49 AM T [facility] LABORATORY PROTIME 33.3 (H) 11.8 - 13.9 11/09/2021 [place] sec 7:49 AM T [facility] LABORATORY Specimen Anatomical Collection Method Collection Time Receive d Time (Source) Location / / Volume Laterality Blood BLOOD SPECIMEN / Butterfly / 11/09/2021 7:34 AM 11/09 7:40 Unknown Unknown CDT AM CDT [facility] LABORATORY - 7:49 AM CDT ?Therapeutic [...] Dominick Hickey DO HEMATOLOGY Performing Organization Address [facility] e [facility] LABORATORY [address] [place] [address] Magnesium (11/09/2021 7:34 AM CDT) athologist Signature MAGNESIUM 1.7 1.6 - 2.6 11/09/2021 [place] mg/dL 8:12 AM [facility] LABORATORY Specimen Anatomical Collection Method Collection Time Receive d Time (Source) Location / / Volume Laterality Blood BLOOD SPECIMEN / Butterfly / 11/09/2021 7:34 AM 11/09 7:39 Unknown Unknown CDT AM CDT Dominick Chapitoshanel [facility]ell[facility] CHEMISTRY Performing Organization Address [facility] LABORATORY [address] [place] [address] (ABNORMAL) Lipase (11/09/2021 7:34 AM CDT) athologist Signature LIPASE <5.0 (L) 8.0 - 78.0 11/09/2021 [place] IU/L 9:00 AM [facility] LABORATORY Specimen Anatomical Collection Method Collection Time Receive d Time (Source) Location / / Volume Laterality Blood BLOOD SPECIMEN / Butterfly / 11/09/2021 7:34 AM 11/09 7:39 Unknown Unknown CDT AM CDT Dominick Uriarteshanel [facility]adSt[facility] CHEMISTRY Performing Organization Address [facility] e [facility] LABORATORY [address] [place] [address] (ABNORMAL) AMMONIA (11/09/2021 7:34 AM CDT) athologist Signature AMMONIA 174 (HH) 11 - 35 11/09/2021 [place] umol/L 8:11 AM [facility] LABORATORY Comment: 1. ??Sulfasalazine and its [...] 7:39 Unknown Unknown CDT AM CDT [facility] CHEMISTRY Performing Organization Address [facility]/ZIP [facility] Phon e Number [facility] [address] [place] [address] Salicylate (11/09/2021 7:34 AM CDT) athologist Signature SALICYLATE <10.0 15.0 - 30.0 11/09/2021 [place] mg/dL 8:14 AM [facility] LABORATORY Specimen Anatomical Collection Method Collection Time Receive d Time (Source) Location / / Volume Laterality Blood BLOOD SPECIMEN / Butterfly / 11/09/2021 7:34 AM 11/09 7:39 Unknown Unknown CDT AM CDT Dominicklencho Uriarteconer[facility]ad[facility] CHEMISTRY Performing Organization Address City/[facility]/ZIP [facility] Phon e Number [facility] [address] [place], [place] [id number] (ABNORMAL) Complete Metabolic Panel (11/09/2021 7:34 AM CDT) [facility] gist Method Time Signature SODIUM 129 (L) 135 - 145 11/09/2021 [place] mmol/L 8:14 AM [facility] LABORATORY POTASSIUM 4.9 3.5 - 5.0 11/09/2021 [place] mmol/L 8:14 AM [facility] LABORATORY CHLORIDE 100 98 - 110 11/09/2021 [place] mmol/L 8:14 AM [facility] LABORATORY CO2,TOTAL 17 (L) 21 - 31 11/09/2021 [place] mmol/L 8:14 AM CDT MEDICAL CENTER LABORATORY ANION GAP 12 5 - 18 11/09/2021 [place] 8:14 AM [facility] LABORATORY GLUCOSE 107 (H) 65 - 100 11/09/2021 [place] mg/dL 8:14 AM [facility] LABORATORY CALCIUM 8.4 (L) 8.5 - 11/09/2021 [place] 10.5 8:14 AM [facility] mg/dL LABORATORY BUN 25 8 - 25 11/09/2021 [place] mg/dL 8:14 AM [facility] LABORATORY CREATININE 2.03 (H) 0.57 - 11/09/2021 [place] 1.11 8:14 AM [facility] mg/dL LABORATORY BUN/CREAT RATIO 12 10 - 20 11/09/2021 [place] 8:14 AM [facility] ALBUMIN 2.4 (L) 3.5 - 5.2 11/09/2021 [place] g/dL 8:14 AM [facility] PROTEIN,TOTAL 5.1 (L) 6.0 - 8.0 11/09/2021 [place] g/dL 8:14 AM [facility] GLOBULIN 2.7 2.0 - 3.7 11/09/2021 [place] g/dL 8:14 AM [facility] LAB[facility] A/G RATIO 0.9 (L) 1.0 - 2.0 11/09/2021 [place] 8:14 AM [facility] BILIRUBIN,TOTAL 16.8 (H) 0.2 - 1.2 11/09/2021 [place] mg/dL 8:14 AM [facility] ALK PHOSPHATASE 200 (H) 50 - 136 11/09/2021 [place] IU/L 8:14 AM [facility] ALT (SGPT) 21 8 - 45 11/09/2021 [place] IU/L 8:14 AM [facility] AST (SGOT) 43 (H) 2 - 40 11/09/2021 [place] IU/L 8:14 AM [facility] eGFR 33 (L) >90 11/09/2021 [place] mL/min/1. 8:14 AM [facility] 73m2 [facility]OR[facility] Comment: As of 2021, [...] Dominick Hickey DO CHEMISTRY Performing Organization Address City/[facility]/ZIP Code Phon e Number [facility] [address] [place] [address] EKG 12 Lead (11/09/2021 7:21 AM CDT) [facility] Method Time Signature Interpretation Normal sinus rhythm BEYON D NOW Normal ECG No previous ECGs available Ventricular Rate 89 BPM BEYOND NOW Atrial Rate 89 BPM BEYOND NOW P-R Interval 120 ms BEYOND NOW QRS Duration 90 ms BEYOND NOW QT 418 ms BEYOND NOW QTc 508 ms BEYOND NOW P [place] 58 degrees BEYOND NOW R [place] 82 degrees BEYOND NOW T [place] 62 degrees BEYOND NOW Specimen Anatomical Collection Method Collection Time Receive d Time (Source) Location / / Volume Laterality 11/09/2021 7:21 AM 7:45 CDT AM CDT Dominick Hickey DO EKG ORD Performing Organization Address [facility] Phon e Number BEYOND NOW [place], [place] from Last 3 Months Insurance Payer Benefit Plan / Subscriber ID Effective Dates Phone Addre ss Type Group BLUE [employer]OSS [place] BLUE ADVANTAGE [id number] 2018-Present [address] [address] [place] [address] MED[address]ID [id number] 2015-Presen [address] [address] [place] [address] Catia Carias Personal/Famil Self 1990 AP T 3 y (Home) [address] [place] [address] Catia Carias Motor Vehicle Self 1990 [address] (Home) [place] [id number] Advance Directives Latest Code Status on File [...] 1:52 PM 04/17/2019 2:42 PM Care Teams Scientific Technical Writer Relationship Specialty Start Date End Date Ervin Schroeder MD PCP - General Family Practice 11/09/211999 [place] [address]
--- OUTSIDE RECORDS SUMMARY | 2022-02-04 23:24 | XMS_ITS | Encounter Summary ---
:1990 Author Care Team Providers Name Role Phone Ervin Schroeder MD Primary Care Provider [phone] Sandoval Byrnes [facility] OTHER [phone] Parris Knight (Mother) Patient Designee [phone] Jairo Rodriguez SETTLEMENT WORKER Nurse Practitioner [phone] Matthew Rollins MD Transplant Director Content Marketing [phone] [facility] Care Team Palliative Care [phone] Taylor Paul RN Palliative Care [phone] Zenobia Kirby [facility] Tobacco Stripping Machine Operator [phone] Reason for Visit JAN Continuation of Care Assessment and Plan Assessment Note provider called 3 times, no answer. Asking [facility] to try and reschedule appt. No services performed. Discussion Note: None recorded.Patient educational handouts: No information available. Plan of Care Reminders Provider Appointments Established 02/05/2022 2:00PM Jairo orta, [employer] Lab None recorded. ? ? Referral None [...] Status Unknown. Past Encounters 12/01/2021 Jairo Rodriguez [employer]: [address] [place] [address], Ph. 11/27/2021 Taylor Paul RN: [address] [place] [address], Ph. 11/05/2021 Jairo Rodriguez, [employer]: [address], [place] [address], Ph. History of Present Illness Note: <div>provider called 3 times, no answer. </div><div>Asking [facility] to try and reschedule appt. </div><div>No services performed.
</div> Review of Systems None recorded. Physical Exam None recorded.
[2022-02-04 23:25] LABS: Lactate* 2.8 mmol/L (0.5-1.9)
--- NOTE | 2022-02-04 23:28 | ED.NAVMDI ---
HPI - Nausea/Vomiting/Diarrhea General Date Seen: 02/04/22 Chief complaint: Nausea/Vomiting Stated complaint: BLOOD IN VOMIT,LIVER CIRRHOSIS Time Seen by Provider: 02/04/22 22:32 Source: patient and family Mode of arrival: ambulatory Limitations: no limitations History of Present Illness HPI Narrative: Patient is a 31-year-old female with hepatic failure, who presents with nausea vomiting, and abdominal pain. Had this since she woke up this morning, she describes her abdominal pain is diffuse through her whole abdomen, she has had approximately 6 episodes of retching, with the last 1 vomiting up a little bit of bright red blood. The amount was approximately a tsp. she called her [facility] provider, who recommended that she come to the emergency room to be seen. She has recently undergone within the last week banding of her esophageal varices, she also underwent a peritoneal tap for her ascites 2 days ago. She is scheduled for another tap tomorrow. She has had some chills but no overt fever, no diarrhea, denies any alcohol intake, and swears to me she has been taking her medications as directed, she presents with her mother here. MD elicited complaint: nausea, vomiting and abdominal pain Pertinent past history: alcohol abuse Description of vomiting: blood-streaked Associated nausea: Yes Associated abdominal pain: Yes Location of pain: diffuse Exacerbating factors: none Related Data Home Medications Medication Instructions Recorded Confirmed folic acid 1 mg tablet 1 mg PO QDAY 10/31/21 01/31/22 levonorgestrel 20 mcg/24 hours (8 1 device intrauterine ONCE 10/31/21 01/31/22 yrs) 52 mg intrauterine device furosemide 20 mg tablet 40 mg PO QAM 11/12/21 01/31/22 ondansetron 8 mg disintegrating 8 mg PO TID PRN 11/12/21 01/31/22 tablet thiamine HCl (vitamin B1) 100 mg 100 mg PO QDAY 11/12/21 01/31/22 tablet diazepam 5 mg tablet 5 mg PO HS 01/31/22 01/31/22 ergocalciferol (vitamin D2) 1,250 50,000 unit PO QWEEK 01/31/22 01/31/22 mcg (50,000 unit) capsule gabapentin 300 mg capsule 600 mg PO QHS 01/31/22 01/31/22 magnesium oxide 400 mg PO BID 01/31/22 01/31/22 promethazine 25 mg tablet 25 mg PO Q6H PRN 01/31/22 01/31/22 ropinirole 2 mg tablet 2 mg PO QHS 01/31/22 01/31/22 Previous Rx's Medication Instructions Recorded pantoprazole 40 mg tablet,delayed 40 mg PO QDAY #30 tabs 11/25/21 release rifaximin 550 mg tablet (Xifaxan) 550 mg PO BID #60 tabs 11/25/21 magnesium oxide 400 mg PO BID #180 caps 12/04/21 vitamin A 10,000 unit capsule 10,000 unit PO .COMPLEX #40 caps 12/04/21 zinc sulfate 50 mg zinc (220 mg) 50 mg PO QDAY #90 caps 12/04/21 capsule cyclobenzaprine 5 mg tablet 5 mg PO QDAY PRN muscle spasm #15 01/09/22 tabs acetaminophen 500 mg tablet 500 mg PO Q6H PRN pain #60 tabs 01/16/22 (Tylenol Extra Strength) cholecalciferol (vitamin D3) 10 10 mcg PO QDAY #30 caps 01/16/22 mcg (400 unit) capsule diclofenac sodium 1 % topical gel 2 g topical QID #100 grams 01/16/22 (Voltaren Arthritis Pain) lactulose 10 gram/15 mL oral 20 g (30 mL) PO TID #946 mL 01/16/22 solution lidocaine 5 % topical patch 1 patch topical QDAY #30 ea 01/16/22 spironolactone 50 mg tablet 50 mg PO QDAY #30 tabs 01/16/22 Allergies Allergy/AdvReac Type Severity Reaction Status Date / Time azithromycin Allergy Unknown Vomiting Verified 01/31/22 03:44 gabapentin Allergy Unknown Uncoded 12/28/21 22:18 Review of Systems Status of ROS: Reports: 6 or more systems reviewed and unremarkable except as noted in History and below GI: Reports: nausea PFSH PFSH Medical History Abdominal ascites Allergic rhinitis Anemia in chronic kidney disease Attention deficit hyperactivity disorder (ADHD) Chronic leg pain Chronic pancreatitis (01/23/21) Congenital QT prolongation on electrocardiography (01/30/21) Gastroesophageal reflux disease without esophagitis (04/16/19) Generalized anxiety disorder with panic attacks Hepatic cirrhosis Hepatic encephalopathy Hepatic neuropathy History of migraine Insomnia Malpositioned intrauterine device (IUD) Patent foramen ovale (03/2020) Pyelonephritis Restless legs syndrome Stage 4 chronic kidney disease Tobacco abuse Vitamin D deficiency Surgical History History of foot surgery Status post hardware removal (06/27/19) Family History Father Hyperlipidemia Maternal Grandfather High blood pressure Prostate cancer Other Type 2 diabetes mellitus Social History Narrative: marijuana use single, no kids, Олег Ochoa, smoker, sober x 1 year Smoking Status: Former smoker Do you use any of these nicotine containing products: None Second hand tobacco smoke exposure: No How often do you have a drink containing alcohol: never AUDIT-C Alcohol total score: 0 Non-prescribed substance use: denies use Exam Narrative: Exam Narrative: On examination I find her in room 2, she is very icteric, answers my questions normally, but very soft-spoken. Her pupils are equal round reactive to light, oropharynx is a little bit dry, her neck is supple. Her chest is clear bilaterally with no wheezing crackles noted her heart sounds no clicks murmurs gallops. Her abdomen is pot belly, tense with ascites, with bruising and a reilly where recent tap it been done in her right upper quadrant. She has tenderness, in her abdomen, and percussion reveals obvious fluid level. Her extremities are all gaunt and thin, she has got a little bit of asterixis although not as bad as I usually see with Catia. She is alert and oriented x3, Const: Vital Signs, click to edit/add: Vital Signs - 24 hr 02/04/22 22:30 02/04/22 23:32 Temperature 98.3 F Pulse Rate [Pulse Oximeter] 97 96 Respiratory Rate 18 14 Blood Pressure [Ri ght Upper Arm] 127/71 Pulse Oximetry 98 96 Oxygen Delivery Me thod Room Air Documenting provider has reviewed patient's vital signs: yes Course Course Hospital Course: Patient was signed out to me by Dr. Santillan. Followed up on her labs, none of which are normal but all of which are essentially at her baseline. Dr. Santillan did talk with [facility] and confirmed that her hemoglobin has been running in the sevens, INR is stable around 3. LFTs are abnormal but stable. Gastroenterology recommended doing a diagnostic paracentesis to rule out spontaneous bacterial peritonitis given her abdominal pain tonight. He is aware that her INR and platelets are abnormal. She has tolerated paracenteses in the past with abnormal labs. Otherwise, she has follow-up tomorrow for a therapeutic paracentesis. She had a tiny amount of blood in her emesis, but not enough to suggest that her recent variceal banding has failed. She is feeling mildly improved after Dilaudid here. Requested some Tylenol which was given to her. Procedure note: We discussed the procedure. She has had many paracenteses and is familiar with them. Nonetheless discussed that this is largely of line procedure, injury to bowel, blood vessels, solid organs is possible. Consent was signed. I used the ultrasound to identify a pocket of fluid. She says they typically go on the right but tonight I saw a larger pocket of fluid on the left. Identified a positive fluid with about a 5 cm window to the bowel. This spot was marked. This does seem to be the same spot that she has had previous paracenteses as well. The area was anesthetized using lidocaine with epinephrine. The area was sterilely prepped. I used a 22 gauge needle to enter the abdominal cavity. Straw colored fluid was obtained. As I was withdrawing the needle, there was a flash of blood into the syringe. Procedure was tolerated well. Bandage was applied. No active bleeding. Results of the fluid show 141 white blood cells per micro L, suggesting absence of spontaneous bacterial peritonitis. Patient is feeling comfortable at this time. I think it is reasonable to discharge her, follow-up at [facility] later today. Return as needed for worsening pain, vomiting, fever or other new symptoms. Culture pending. I did do other labs on her ascites fluid in case there was any in acuity regarding the cell counts, but I think this cell count is clear enough that those other labs are not needed to make a decision. Consultations Consultation #1: I spoke to at [facility], he recommended the paracentesis for diagnostic reasons to rule out SBP. I communicated this to Time: 00:37 Vital Signs Vital signs: Initial Vital Signs Temperature 98.3 F 02/04/22 22:30 Temperature Source Temporal Artery Scan 02/04/22 22:30 Pulse Rate 97 02/04/22 22:30 Respiratory Rate 18 02/04/22 22:30 Blood Pressure 127/71 02/04/22 22:30 Blood Pressure Mean 89 02/04/22 22:30 Pulse Oximetry 98 02/04/22 22:30 Oxygen Delivery Method 02/04/22 22:30 Vital Signs Temperature 98.3 F 02/04/22 22:30 Pulse Rate 97 02/04/22 22:30 Respiratory Rate 18 02/04/22 22:30 Blood Pressure 127/71 02/04/22 22:30 Pulse Oximetry 98 02/04/22 22:30 Oxygen Delivery Method 02/04/22 22:30 Temperature 98.3 F 02/04/22 22:30 Pulse Rate 91 02/05/22 03:00 Respiratory Rate 14 02/05/22 03:00 Blood Pressure 115/65 02/05/22 03:00 Pulse Oximetry 93 02/05/22 03:00 Oxygen Delivery Method 02/05/22 03:00 MDM - Nausea/Vomiting/Diarrhea MDM Narrative Medical decision making narrative: My plan at this point obviously is IV labs, we will give her some Dilaudid that is worked really well for her pain in the past, 0.5 mg she does have a history of QT prolongation but has tolerated Zofran in the past and this is actually was broken her cycle on my review of her chart. For her vomiting. We will try 1 dose of 4 mg, further we should likely use benzodiazepines. She did try some Compazine at home but this did not help her. More concerning is the blood, which could be related to the varices either bands coming off, or possibly a bleed. Given the fact that this is not catastrophic at this point I think it is more likely related to either Mariangel-Hatch or the bands coming off. Nevertheless we will have to do labs consider SBP as a possibility here, and contact [facility]. She will be signed over to the oncoming provider for further delineation of her lab tests and treatment. Lab Data Labs: Lab Results 02/04/22 02/04/22 02/04/22 Range/Units 23:15 23:15 23:15 WBC 4.25 L (4.50-11.00) K/uL RBC 2.21 L (4.00-5.20) m/uL Hgb 7.7 L* (12.0-16.0) gm/dL Hct 22.7 L (33.0-51.0) % MCV 103 H (80-100) fL MCH 35 H (26-34) pg MCHC 34 (32-36) gm/dL RDW Coeff of Yamileth 22.3 H (11.5-15.5) % Plt Count 54 L (140-440) K/uL Neut % (Auto) 69.5 (42.0-72.0) % Lymph % (Auto) 16.7 L (20-44) % Rincon % (Auto) 12.2 H (0.0-11.0) % Eos % (Auto) 0.7 (0.0-7.0) % Baso % (Auto) 0.2 (0.0-3.0) % Neut # (Auto) 3.00 (1.7-7.0) K/uL Lymph # (Auto) 0.70 L (0.90-2.90) K/uL R[place]con # (Auto) 0.50 (0.00-0.90) K/UL Eos # (Auto) 0.00 (0.00-0.50) K/uL Baso # (Auto) 0.00 (0.00-0.30) K/uL Abs Immat Gran (auto) 0.03 (0.00-0.30) K/uL INR (0.91-1.10) APTT (23-33) Seconds Sodium 137 (135-149) mmol/L Potassium 4.4 (3.6-5.1) mmol/L Chloride 107 (96-114) mmol/L Carbon Dioxide 19 L (20-32) mmol/L BUN 16 (5-24) mg/dL Creatinine 0.7 (0.5-1.5) mg/dL Estimated Creat Clear 92.10 Estimated GFR 119 ml/min Glucose 157 H (60-115) mg/dL Lactate 2.8 H (0.5-1.9) mmol/L Calcium 9.1 (8.4-10.6) mg/dL Total Bilirubin (0.1-1.5) mg/dL Direct Bilirubin (0.0-0.5) mg/dL AST (12-35) U/L ALT (4-35) U/L Alkaline Phosphatase (40-150) U/L C-Reactive Protein 1.4 H (0.5-1.0) mg/dL Total Protein (6.0-8.3) g/dL Albumin (3.3-5.0) g/dL Lipase (23-300) U/L Fluid Volume Fluid Color Fluid Appearance Fluid WBC 10^3/uL Fluid RBC 10^6/uL Fluid Polynuclear WBCs % Fluid Mononuclear WBCs % Fluid Glucose mg/dL Fluid Total Protein gm/dL Fluid Albumin gm/dL Blood Type Antibody Screen 02/04/22 02/04/22 02/04/22 Range/Units 23:15 23:15 23:55 WBC (4.50-11.00) K/uL RBC (4.00-5.20) m/uL Hgb (12.0-16.0) gm/dL Hct (33.0-51.0) % MCV (80-100) fL MCH (26-34) pg MCHC (32-36) gm/dL RDW Coeff of Yamileth (11.5-15.5) % Plt Count (140-440) K/uL Neut % (Auto) (42.0-72.0) % Lymph % (Auto) (20-44) % Rincon % (Auto) (0.0-11.0) % Eos % (Auto) (0.0-7.0) % Baso % (Auto) (0.0-3.0) % Neut # (Auto) (1.7-7.0) K/uL Lymph # (Auto) (0.90-2.90) K/uL Rincon # (Auto) (0.00-0.90) K/UL Eos # (Auto) (0.00-0.50) K/uL Baso # (Auto) (0.00-0.30) K/uL Abs Immat Gran (auto) (0.00-0.30) K/uL INR 3.06 H (0.91-1.10) APTT 52 H (23-33) Seconds Sodium (135-149) mmol/L Potassium (3.6-5.1) mmol/L Chloride (96-114) mmol/L Carbon Dioxide (20-32) mmol/L BUN (5-24) mg/dL Creatinine (0.5-1.5) mg/dL Estimated Creat Clear Estimated GFR ml/min Glucose (60-115) mg/dL Lactate (0.5-1.9) mmol/L Calcium (8.4-10.6) mg/dL Total Bilirubin 12.8 H (0.1-1.5) mg/dL Direct Bilirubin 5.0 H (0.0-0.5) mg/dL AST 58 H (12-35) U/L ALT 21 (4-35) U/L Alkaline Phosphatase 273 H (40-150) U/L C-Reactive Protein (0.5-1.0) mg/dL Total Protein 5.8 L (6.0-8.3) g/dL Albumin 3.7 (3.3-5.0) g/dL Lipase 23 (23-300) U/L Fluid Volume Fluid Color Fluid Appearance Fluid WBC 10^3/uL Fluid RBC 10^6/uL Fluid Polynuclear WBCs % Fluid Mononuclear WBCs % Fluid Glucose mg/dL Fluid Total Protein gm/dL Fluid Albumin gm/dL Blood Type B Positive Antibody Screen NEGATIVE 02/05/22 02/05/22 Range/Units 01:10 01:10 WBC (4.50-11.00) K/uL RBC (4.00-5.20) m/uL Hgb (12.0-16.0) gm/dL Hct (33.0-51.0) % MCV (80-100) fL MCH (26-34) pg MCHC (32-36) gm/dL RDW Coeff of Yamileth (11.5-15.5) % Plt Count (140-440) K/uL Neut % (Auto) (42.0-72.0) % Lymph % (Auto) (20-44) % Rincon % (Auto) (0.0-11.0) % Eos % (Auto) (0.0-7.0) % Baso % (Auto) (0.0-3.0) % Neut # (Auto) (1.7-7.0) K/uL Lymph # (Auto) (0.90-2.90) K/uL Rincon # (Auto) (0.00-0.90) K/UL Eos # (Auto) (0.00-0.50) K/uL Baso # (Auto) (0.00-0.30) K/uL Abs Immat Gran (auto) (0.00-0.30) K/uL INR (0.91-1.10) APTT (23-33) Seconds Sodium (135-149) mmol/L Potassium (3.6-5.1) mmol/L Chloride (96-114) mmol/L Carbon Dioxide (20-32) mmol/L BUN (5-24) mg/dL Creatinine (0.5-1.5) mg/dL Estimated Creat Clear Estimated GFR ml/min Glucose (60-115) mg/dL Lactate (0.5-1.9) mmol/L Calcium (8.4-10.6) mg/dL Total Bilirubin (0.1-1.5) mg/dL Direct Bilirubin (0.0-0.5) mg/dL AST (12-35) U/L ALT (4-35) U/L Alkaline Phosphatase (40-150) U/L C-Reactive Protein (0.5-1.0) mg/dL Total Protein (6.0-8.3) g/dL Albumin (3.3-5.0) g/dL Lipase (23-300) U/L Fluid Volume 6 Fluid Color Blood Tinged A Fluid Appearance Cloudy A Fluid WBC 0.190 10^3/uL Fluid RBC 0.031 10^6/uL Fluid Polynuclear WBCs 26 % Fluid Mononuclear WBCs 74 % Fluid Glucose 169 mg/dL Fluid Total Protein 1347.0 gm/dL Fluid Albumin < 1.0 gm/dL Blood Type Antibody Screen Discharge Plan Discharge Clinical Impression: Hepatic cirrhosis, Abdominal pain Patient Disposition: Home, Self-Care Condition: Improved Instructions: Abdominal Pain (ED) Additional Instructions: Follow-up tomorrow at [facility] as planned. Return as needed for new symptoms such as fever, worsening vomiting or abdominal pain. Prescriptions: No Action levonorgestrel 20 mcg/24 hours (7 yrs) 52 mg intrauterine device 1 device intrauterine ONCE folic acid 1 mg tablet 1 mg PO QDAY Label Comments: TAKE 1 TABLET BY MOUTH DAILY ergocalciferol (vitamin D2) 1,250 mcg (50,000 unit) capsule 50,000 unit PO QWEEK Label Comments: TAKE 1 CAPSULE BY MOUTH ONCE A WEEK magnesium oxide 400 mg magnesium capsule 400 mg PO BID promethazine 25 mg tablet 25 mg PO Q6H PRN ropinirole 2 mg tablet 2 mg PO QHS gabapentin 300 mg capsule 600 mg PO QHS diazepam 5 mg tablet 5 mg PO HS furosemide 20 mg tablet 40 mg PO QAM ondansetron 8 mg tablet,disintegrating 8 mg PO TID PRN thiamine HCl (vitamin B1) 100 mg tablet 100 mg PO QDAY Label Comments: TAKE 1 TABLET BY MOUTH DAILY pantoprazole 40 mg tablet,delayed release (DR/EC) 40 mg PO QDAY Qty: 30 5RF Label Comments: TAKE 1 TABLET BY MOUTH DAILY Xifaxan 550 mg tablet 550 mg PO BID Qty: 60 5RF Label Comments: TAKE 1 TABLET BY MOUTH TWICE DAILY vitamin A 10,000 unit capsule 10,000 unit PO .COMPLEX Qty: 40 3RF Rx Instructions: 10,000 units PO 3 times a week; magnesium oxide 400 mg magnesium capsule 400 mg PO BID Qty: 180 3RF zinc sulfate 50 mg zinc (220 mg) capsule 50 mg PO QDAY Qty: 90 3RF cyclobenzaprine 5 mg tablet 5 mg PO QDAY PRN (Reason: muscle spasm) Qty: 15 0RF lactulose 10 gram/15 mL solution 20 g PO TID Qty: 946 0RF spironolactone 50 mg tablet 50 mg PO QDAY Qty: 30 0RF lidocaine 5 % adhesive patch,medicated 1 patch topical QDAY Qty: 30 0RF Rx Instructions: leave on most painful area for up to 12 hrs diclofenac sodium [Voltaren Arthritis Pain] 1 % gel 2 g topical QID Qty: 100 0RF Rx Instructions: apply to single elbow, wrist or hand; for hand includes palm/fingers/back of hand cholecalciferol (vitamin D3) 10 mcg (400 unit) capsule 10 mcg PO QDAY Qty: 30 0RF acetaminophen [Tylenol Extra Strength] 500 mg tablet 500 mg PO Q6H PRN (Reason: pain) Qty: 60 0RF Follow Up/Referrals: Provider,Not a Local [Primary Care Provider] - Stand Alone Forms: MyHealth Info Instructions
[2022-02-04 23:30] LABS: Basophils Percent Auto 0.2 % (0.0-3.0); Eosinophils Percent Auto 0.7 % (0.0-7.0); Hematocrit 22.7 % (33.0-51.0); Immature Granulocytes Abs Auto 0.03 K/uL (0.00-0.30); Lymphocytes Percent Auto 16.7 % (20-44); Mean Corpuscular HGB Conc 34 gm/dL (32-36); Mean Corpuscular Hemoglobin 35 pg (26-34); Mean Corpuscular Volume 103 fL (80-100); Monocytes Percent Auto 12.2 % (0.0-11.0); Neutrophils Percent Auto 69.5 % (42.0-72.0); Platelet Count* 54 K/uL (140-440); RDW Coefficient of Variation % 22.3 % (11.5-15.5); Red Blood Count 2.21 m/uL (4.00-5.20); White Blood Count* 4.25 K/uL (4.50-11.00)
[2022-02-04 23:32] VITALS: PULSE 96; RESP 14; O2SAT 96
[2022-02-04 23:33] LABS: Hemoglobin* 7.7 gm/dL (12.0-16.0); Slide Review Reflex No
[2022-02-04 23:43] LABS: Chloride* 107 mmol/L (96-114); Potassium* 4.4 mmol/L (3.6-5.1); Sodium* 137 mmol/L (135-149)
[2022-02-04 23:44] LABS: Albumin* 3.7 g/dL (3.3-5.0)
[2022-02-04 23:45] LABS: Creatinine* 0.7 mg/dL (0.5-1.5); Estimated Glomerular Filt Rate 119 ml/min
[2022-02-04 23:46] LABS: Blood Urea Nitrogen* 16 mg/dL (5-24); Carbon Dioxide* 19 mmol/L (20-32); Glucose* 157 mg/dL (60-115)
[2022-02-04 23:47] LABS: Alanine Aminotransferase* 21 U/L (4-35); Alkaline Phosphatase* 273 U/L (40-150); Aspartate Amino Transferase* 58 U/L (12-35); Bilirubin Total* 12.8 mg/dL (0.1-1.5); Calcium* 9.1 mg/dL (8.4-10.6); Lipase* 23 U/L (23-300); Total Protein* 5.8 g/dL (6.0-8.3)
[2022-02-04 23:49] LABS: C Reactive Protein* 1.4 mg/dL (0.5-1.0); INR 3.06 (0.91-1.10); Partial Thromboplastin Time* 52 Seconds (23-33)
[2022-02-05 01:00] VITALS: BP 96/54; PULSE 96; RESP 14; O2SAT 96
[2022-02-05 01:30] VITALS: BP 99/47; PULSE 100; RESP 14; O2SAT 94
[2022-02-05] MEDS: ACETAMINOPHEN 500 MG TABLET PO (01:55)
[2022-02-05 02:00] VITALS: BP 113/63; PULSE 96; RESP 14; O2SAT 95
[2022-02-05 02:21] LABS: Albumin Body Fluid* < 1.0 gm/dL; BF Clarity* Cloudy; BF Color Blood Tinged; BF Total Volume* 6
[2022-02-05 02:22] LABS: Glucose Body Fluid* 169 mg/dL; RBC, Body Fluid* 0.031 10^6/uL
[2022-02-05 02:30] VITALS: BP 113/62; PULSE 93; RESP 14; O2SAT 93
[2022-02-05 03:00] VITALS: BP 115/65; PULSE 91; RESP 14; O2SAT 93
[2022-02-05 03:33] LABS: Mononuclear WBC Body Fluid* 74 %; Polynuclear WBC Body Fluid* 26 %
== END 2022-02-05 03:17 | disposition home or self-care (01) ==
PROVIDERS: Family Medicine; Emergency Provider Emergency Medicine
DX: K74.60 Unspecified cirrhosis of liver (principal)
CPT/HCPCS: 36415; 49082; 80048; 80076; 81001; 82042; 82945; 83605; 83690; 84157; 85025; 85610; 85730; 86140; 86850; 86900; 86901; 87070; 87205; 89051; 96374; 96375; 99284; A9270; J1170; J2405

== ENCOUNTER 2022-02-10 07:35 | Emergency (ER) | payer BC, SELFPAY ==
[2022-02-10 07:42] VITALS: BP 116/69; PULSE 108; RESP 18; TEMP 36.9; O2SAT 96; BMI 25.6
--- NOTE | 2022-02-10 08:04 | ED_ITS ---
HPI - General Adult General Date Seen: 02/10/22 Chief complaint: Extremity Pain/Injury, Lower Stated complaint: Loss bladder control/pain on both legs Time Seen by Provider: 02/10/22 08:03 Source: patient and RN notes reviewed Mode of arrival: other (Dropped off by her boyfriend per her report) Limitations: no limitations History of Present Illness HPI narrative: Patient is a 34-year-old female with known cirrhotic liver disease coming in with complaint of severe pain in both of her legs and loss of bowel bladder. She states she has been having back pain. She states she talked to her coordinator a few times at [facility] regarding her issues. They told her if it continued she would need to be seen. On questioning she has not had neuro imaging of her back. I can potentially do neuro imaging later today but not at this time. There is no fevers, no trauma. Her abdomen is a bit distended but she states she is having no abdominal pain. She states she is probably due for a paracentesis. She states her legs are numb and tingly. Has pain radiating down both legs. She is requesting a pain medicine immediately, asked me if she can have some ibuprofen. I did have to see this patient quickly and did not have a chance to address pain management with her. I did have a stroke code coming in and another ill patient in the department. Reviewed with her that it would be back to talk to her as soon as I possibly could. In the interim, we will obtain CT of her lumbar spine, may need to consider doing an MRI later if needed. Related Data Home Medications Medication Instructions Recorded Confirmed folic acid 1 mg tablet 1 mg PO QDAY 10/31/21 01/31/22 levonorgestrel 20 mcg/24 hours (8 1 device intrauterine ONCE 10/31/21 01/31/22 yrs) 52 mg intrauterine device furosemide 20 mg tablet 40 mg PO QAM 11/12/21 01/31/22 ondansetron 8 mg disintegrating 8 mg PO TID PRN 11/12/21 01/31/22 tablet thiamine HCl (vitamin B1) 100 mg 100 mg PO QDAY 11/12/21 01/31/22 tablet diazepam 5 mg tablet 5 mg PO HS 01/31/22 01/31/22 ergocalciferol (vitamin D2) 1,250 50,000 unit PO QWEEK 01/31/22 01/31/22 mcg (50,000 unit) capsule gabapentin 300 mg capsule 600 mg PO QHS 01/31/22 01/31/22 magnesium oxide 400 mg PO BID 01/31/22 01/31/22 promethazine 25 mg tablet 25 mg PO Q6H PRN 01/31/22 01/31/22 ropinirole 2 mg tablet 2 mg PO QHS 01/31/22 01/31/22 Previous Rx's Medication Instructions Recorded pantoprazole 40 mg tablet,delayed 40 mg PO QDAY #30 tabs 11/25/21 release rifaximin 550 mg tablet (Xifaxan) 550 mg PO BID #60 tabs 11/25/21 magnesium oxide 400 mg PO BID #180 caps 12/04/21 vitamin A 10,000 unit capsule 10,000 unit PO .COMPLEX #40 caps 12/04/21 zinc sulfate 50 mg zinc (220 mg) 50 mg PO QDAY #90 caps 12/04/21 capsule cyclobenzaprine 5 mg tablet 5 mg PO QDAY PRN muscle spasm #15 01/09/22 tabs acetaminophen 500 mg tablet 500 mg PO Q6H PRN pain #60 tabs 01/16/22 (Tylenol Extra Strength) cholecalciferol (vitamin D3) 10 10 mcg PO QDAY #30 caps 01/16/22 mcg (400 unit) capsule diclofenac sodium 1 % topical gel 2 g topical QID #100 grams 01/16/22 (Voltaren Arthritis Pain) lactulose 10 gram/15 mL oral 20 g (30 mL) PO TID #946 mL 01/16/22 solution lidocaine 5 % topical patch 1 patch topical QDAY #30 ea 01/16/22 spironolactone 50 mg tablet 50 mg PO QDAY #30 tabs 01/16/22 Allergies Allergy/AdvReac Type Severity Reaction Status Date / Time azithromycin Allergy Unknown Vomiting Verified 01/31/22 03:44 gabapentin Allergy Unknown Uncoded 12/28/21 22:18 Review of Systems Status of ROS: Reports: 6 or more systems reviewed and unremarkable except as noted in History and below [facility] Medical History Abdominal ascites Allergic rhinitis Anemia in chronic kidney disease Attention deficit hyperactivity disorder (ADHD) Chronic leg pain Chronic pancreatitis (01/23/21) Congenital QT prolongation on electrocardiography (01/30/21) Gastroesophageal reflux disease without esophagitis (04/16/19) Generalized anxiety disorder with panic attacks Hepatic cirrhosis Hepatic encephalopathy Hepatic neuropathy History of migraine Insomnia Malpositioned intrauterine device (IUD) Patent foramen ovale (03/2020) Pyelonephritis Restless legs syndrome Stage 4 chronic kidney disease Tobacco abuse Vitamin D deficiency Surgical History History of foot surgery Status post hardware removal (06/27/19) Family History Father Hyperlipidemia Maternal Grandfather High blood pressure Prostate cancer Other Type 2 diabetes mellitus Social History Narrative: marijuana use single, no kids, Олег Ochoa, smoker, sober x 1 year Smoking Status: Former smoker Do you use any of these nicotine containing products: None Second hand tobacco smoke exposure: No How often do you have a drink containing alcohol: never AUDIT-C Alcohol total score: 0 Non-prescribed substance use: denies use Exam Const: Vital Signs, click to edit/add: Vital Signs - 24 hr 02/10/22 07:42 02/10/22 09:52 02/10/22 11:33 Temperature 98.5 F 97.6 F Pulse Rate [Pulse Oximeter] 108 H 106 H Respiratory Rate 18 30 H 26 H Blood Pressure [Le ft Upper Arm] 116/69 123/60 127/69 Pulse Oximetry 96 96 95 Oxygen Delivery Me thod Room Air Room Air Room Air 02/10/22 12:55 Temperature Pulse Rate [Pulse Oximeter] 110 H Respiratory Rate Blood Pressure [Le ft Upper Arm] 134/81 Pulse Oximetry 94 Oxygen Delivery Me thod Room Air Documenting provider has reviewed patient's vital signs: yes Common normals: no apparent distress, oriented x3, no limitations and alert General appearance: cooperative, comfortable and well kempt HENMT: Common normals: normocephalic and head/scalp atraumatic Head and scalp: normocephalic and atraumatic Eye: Common normals: PERRL and EOMs intact bilaterally Sclera: sclera abnormal (Bilateral icterus) Pupil: PERRL Neck & C-Spine: Common normals: full ROM, no lymphadenopathy and supple Resp: Common normals: normal respiratory effort, no retractions, no use of a ccessory muscles and clear to auscultation bilaterally Auscultation: clear to auscultation bilaterally Cardio: Common normals: regular rate, regular rhythm, S1 normal heart sound, S2 normal heart sound, no gallops, no clicks and no murmurs Rate: regular rate Rhythm: regular rhythm Heart sounds: S1 normal and S2 normal GI: Other: Patient's abdomen is distended but nontender. Do believe I can feel a fluid wave. She certainly does not have any tenderness however. Extremity: Other: I cannot elicit DTRs of her lower extremities. She does not have any clinically significant edema. She states she cannot feel me touch her legs but does have preserved dorsiflexion plantar flexion. If I have her lift either leg she complains of severe pain into the either leg. She can lift her legs off the bed though independently. Neuro: Common normals: oriented x3 Sensorium/orientation: alert Psych: Appearance: well kempt Skin: Narrative: Do believe I see some petechial changes on the skin of her lower extremities. Course Reevaluation(s) Reevaluation #1: Did talk with her, will try dose of Flexeril [address] should be read shortly. Once I have that information, can make a decision whether she needs an MRI or just need to speak with her transplant team at [facility] to come up with a plan. Time: 10:05 Reevaluation #2: Reviewed my conversations at [facility] with Bertha. We will be doing a lumbar MRI here. I am going to give her 2.5 mg oxycodone here at this time. There are multiple levels of compression fractures. On talking to her, this may have been going on for about 2 months and she states she was told she had normal imaging. Some of this imaging was for abdominal pain however. She states she gets anxious and the MRI but reviewed with her given her liver disease at a cannot safely give her both a benzodiazepine and oxycodone. Hopefully the oxycodone will help her relax, treat her pain and allow her to sleep. Time: 11:12 Consultations Consultation #1: Have reviewed the patient with Dr. Jerome her liver specialist. She is not on a liver transplant list yet, they are considering palliative care given compliance issues in personality issues with her. She is supposedly been [facility]. He really cannot help me come up with a plan for save oral narcotics, he is concerned about this. When asked about NSAIDs he stated that would be difficult. Did not really answer whether or not we could give her any. He thought she might need hospitalization, have a followup MRI even our CT was negative. I should be able to do an MRI here shortly or later today. I did subsequently talk to Maura day RN in the ER at 11:01 a.m. and they are on complete med surge divert system wide. They will not take her in the ER as she will not reportedly get anything further that we cannot do for her here. They cannot hospitalize her which was my hope. She is at risk for complications from narcotics with her liver disease. Thus, knowing I cannot send her to [place], will order the MRI. TLSO may benefit this patient but it is not something that we have available here. I will be ordering 2.5 mg oral oxycodone for pain management. We will hopefully be able to get a better idea of the aging of these compression fractures with MRI. Again there T12-L1 L2-L3 and L5. Her milk of lime slaker states that this is not something that they had diagnosed prior. He noted that she had a normal bone density in October but our radiologist said that there was diffuse bone loss present and osteopenia but likely osteoporosis. Time: 10:47 Consultation #2: Have spoken with her primary care provider through the [facility] system. We reviewed the subacute T12 and L3 compression fractures. Patient told me I will not be able to dispense narcotics as she is restricted. Thus I did make the phone call to talk to her primary. Her primary is comfortable sending in some oxycodone. I recommended 2.5 mg 2 to 3 times a day to start so we be insure that she is at least minimal risk for encephalopathy. She does have a follow-up within the next day or 2 with this primary care provider. I have also asked this provider she would put in a referral for a TLSO which she states she will do so. Time: 15:09 Vital Signs Vital signs: Initial Vital Signs Temperature 98.5 F 02/10/22 07:42 Temperature Source Temporal Artery Scan 02/10/22 07:42 Pulse Rate 108 H 02/10/22 07:42 Respiratory Rate 18 02/10/22 07:42 Blood Pressure 116/69 02/10/22 07:42 Blood Pressure Mean 84 02/10/22 07:42 Blood Pressure Position Supine 02/10/22 07:42 Pulse Oximetry 96 02/10/22 07:42 Oxygen Delivery Method 02/10/22 07:42 Vital Signs Temperature 98.5 F 02/10/22 07:42 Pulse Rate 108 H 02/10/22 07:42 Respiratory Rate 18 02/10/22 07:42 Blood Pressure 116/69 02/10/22 07:42 Pulse Oximetry 96 02/10/22 07:42 Oxygen Delivery Method 02/10/22 07:42 Temperature 97.6 F 02/10/22 09:52 Pulse Rate 110 H 02/10/22 12:55 Respiratory Rate 26 H 02/10/22 11:33 Blood Pressure 134/81 02/10/22 12:55 Pulse Oximetry 94 02/10/22 12:55 Oxygen Delivery Method 02/10/22 12:55 Medical Decision Making Lab Data Lab results reviewed: Yes I reviewed the patient's lab results Labs: Lab Results 02/10/22 02/10/22 02/10/22 Range/Units 11:04 11:22 11:22 WBC 5.97 (4.50-11.00) K/uL RBC 2.39 L (4.00-5.20) m/uL Hgb 8.3 L (12.0-16.0) gm/dL Hct 24.1 L (33.0-51.0) % MCV 101 H (80-100) fL MCH 35 H (26-34) pg MCHC 34 (32-36) gm/dL RDW Coeff of Yamileth 22.2 H (11.5-15.5) % Plt Count 55 L (140-440) K/uL Neut % (Auto) 74.8 H (42.0-72.0) % Lymph % (Auto) 15.2 L (20-44) % [place] % (Auto) 7.7 (0.0-11.0) % Eos % (Auto) 1.7 (0.0-7.0) % Baso % (Auto) 0.3 (0.0-3.0) % Neut # (Auto) 4.50 (1.7-7.0) K/uL Lymph # (Auto) 0.90 (0.90-2.90) K/uL [place] # (Auto) 0.50 (0.00-0.90) K/UL Eos # (Auto) 0.10 (0.00-0.50) K/uL Baso # (Auto) 0.02 (0.00-0.30) K/uL Abs Immat Gran (auto) 0.02 (0.00-0.30) K/uL INR 2.83 H (0.91-1.10) APTT 52 H (23-33) Seconds Sodium (135-149) mmol/L Potassium (3.6-5.1) mmol/L Chloride (96-114) mmol/L Carbon Dioxide (20-32) mmol/L BUN (5-24) mg/dL Creatinine (0.5-1.5) mg/dL Estimated Creat Clear Estimated GFR ml/min Glucose (60-115) mg/dL Calcium (8.4-10.6) mg/dL Total Bilirubin (0.1-1.5) mg/dL AST (12-35) U/L ALT (4-35) U/L Alkaline Phosphatase (40-150) U/L Ammonia (13.1-30.0) umol/L Total Protein (6.0-8.3) g/dL Albumin (3.3-5.0) g/dL SARS-CoV-2 (PCR) Negative SARS-CoV-2 (Negative) 02/10/22 02/10/22 Range/Units 11:22 11:22 WBC (4.50-11.00) K/uL RBC (4.00-5.20) m/uL Hgb (12.0-16.0) gm/dL Hct (33.0-51.0) % MCV (80-100) fL MCH (26-34) pg MCHC (32-36) gm/dL RDW Coeff of Yamileth (11.5-15.5) % Plt Count (140-440) K/uL Neut % (Auto) (42.0-72.0) % Lymph % (Auto) (20-44) % [place] % (Auto) (0.0-11.0) % Eos % (Auto) (0.0-7.0) % Baso % (Auto) (0.0-3.0) % Neut # (Auto) (1.7-7.0) K/uL Lymph # (Auto) (0.90-2.90) K/uL [place] # (Auto) (0.00-0.90) K/UL Eos # (Auto) (0.00-0.50) K/uL Baso # (Auto) (0.00-0.30) K/uL Abs Immat Gran (auto) (0.00-0.30) K/uL INR (0.91-1.10) APTT (23-33) Seconds Sodium 135 (135-149) mmol/L Potassium 3.7 (3.6-5.1) mmol/L Chloride 102 (96-114) mmol/L Carbon Dioxide 24 (20-32) mmol/L BUN 10 (5-24) mg/dL Creatinine 0.5 (0.5-1.5) mg/dL Estimated Creat Clear 128.94 Estimated GFR 129 ml/min Glucose 109 (60-115) mg/dL Calcium 8.9 (8.4-10.6) mg/dL Total Bilirubin 10.9 H (0.1-1.5) mg/dL AST 68 H (12-35) U/L ALT 22 (4-35) U/L Alkaline Phosphatase 331 H (40-150) U/L Ammonia 49.0 H (13.1-30.0) umol/L Total Protein 5.6 L (6.0-8.3) g/dL Albumin 3.5 (3.3-5.0) g/dL SARS-CoV-2 (PCR) (Negative) Imaging Data CT- Other: Attestation: I have reviewed the pertinent imaging results. Radiologist's impression: Patient: BERTHA GARCIA Facility:?[facility] Patient ID:?[id number] Site Patient ID:?[id number]. Site :?1990 Study:?CT Spine Lumbar W/O-02/10/2022 9:14:59 AM Ordering Physician:?Andrew Mayes Final Report: Indication: C/O BILAT LEG PAIN, BOWEL/BLADDER DYSFUNCTION Technique: Routine noncontrast CT lumbar spine. Please note that all CT scans at this facility use dose modulation, iterative reconstruction, and/or weight-based dosing when appropriate to reduce radiation dose to as low as reasonably achievable. Comparison: CT 01/31/2022 Findings: Mild compression fracture deformity L3 noted along with T12. Moderate compression deformity of L1. Subtle fracture inferior endplate L5. Subtle fracture inferior endplate L2. Osteopenia/osteoporosis. No pars interarticularis fracture/defect. No foraminal stenosis. No spondylolisthesis. No canal stenosis. Intra-abdominal ascites and pancreatic calcifications again noted along with mild retroperitoneal adenopathy. Impression: Multiple compression fractures involving T12, L1, L2, L3 and L5. These are all likely similar compared to the most recent study. However, these are all new since May 10, 2016. Diffuse bone loss is present compatible with at least osteopenia and probable osteoporosis. No evidence of canal or foraminal stenosis. Diffuse ascites and chronic pancreatitis. Please note that all CT scans at this facility use dose modulation, iterative reconstruction, and/or weight-based dosing when appropriate to reduce radiation dose to as low as reasonably achievable. Dictated by Ervin Hyde MD @ 02/10/2022 10:04:06 AM (Electronic Signature) MR - Other: Attestation: I have reviewed the pertinent imaging results. Radiologist's impression: Patient: BERTHA GARCIA Facility:?[facility] Patient ID:?[id number] Site Patient ID:?[id number]. Site :?1990 Study:?MRI Spine Lumbar W/O-02/10/2022 1:44:22 PM Ordering Physician:Anat Mayes Final Report: Indication: Bilateral leg pain, bowel/bladder dysfunction Technique: Multiplanar, multisequence, MRI of the lumbar spine, obtained without contrast. Comparison: Same-day CT lumbar spine Findings: The lumbar lordosis is preserved. No significant spondylolisthesis. Multilevel compression deformities involving the T12 inferior endplate, L1 superior and inferior endplates, L2 inferior endplate, L3 superior and inferior endplate, L4 and L5 superior endplates. Mild-moderate bone edema associated with the L3 inferior endplate, and mild bony edema T12. Minimal posterior buckling of the L1 posterosuperior corner. No aggressive osseous lesion identified. Intrinsic marrow signal is otherwise unremarkable. The conus medullaris terminates at approximately L1-2. No suspicious findings in the prevertebral and paraspinal soft tissues. No obvious epidural hematoma. Included SI joints are unremarkable. Mild degenerative changes, without evidence of significant foraminal or spinal canal stenosis. Impression: 1. Multilevel compression deformities spanning T12-L5. [id number] bony edema at the L3 inferior endplate, and minimal bony edema at the T12 inferior endplate, suggestive of subacute age. Remaining compression deformities appear chronic. 2. Minimal posterior cortical buckling of the L1 posterior superior corner. 3. No epidural hematoma, or evidence of significant foraminal or spinal canal stenosis. Dictated by Loreta Olivera MD @ 02/10/2022 2:07:58 PM (Electronic Signature) Critical Care Time Critical Care Time Critical Care Time: No Discharge Plan Discharge Clinical Impression: Compression fracture of L3 vertebra, T12 compression fracture Condition: Stable Instructions: Vertebral Compression Fracture (ED) Additional Instructions: Your primary care provider is sending a prescription for oxycodone in for you to Pharmacy. Keep your follow-up with her as scheduled. She reported that she is putting in a referral for a TLSO brace as well. At your follow-up, can make sure that this has been done. Activity Level: Activity as Tolerated Prescriptions: No Action levonorgestrel 20 mcg/24 hours (7 yrs) 52 mg intrauterine device 1 device intrauterine ONCE folic acid 1 mg tablet 1 mg PO QDAY Label Comments: TAKE 1 TABLET BY MOUTH DAILY ergocalciferol (vitamin D2) 1,250 mcg (50,000 unit) capsule 50,000 unit PO QWEEK Label Comments: TAKE 1 CAPSULE BY MOUTH ONCE A WEEK magnesium oxide 400 mg magnesium capsule 400 mg PO BID promethazine 25 mg tablet 25 mg PO Q6H PRN ropinirole 2 mg tablet 2 mg PO QHS gabapentin 300 mg capsule 600 mg PO QHS diazepam 5 mg tablet 5 mg PO HS furosemide 20 mg tablet 40 mg PO QAM ondansetron 8 mg tablet,disintegrating 8 mg PO TID PRN thiamine HCl (vitamin B1) 100 mg tablet 100 mg PO QDAY Label Comments: TAKE 1 TABLET BY MOUTH DAILY pantoprazole 40 mg tablet,delayed release (DR/EC) 40 mg PO QDAY Qty: 30 5RF Label Comments: TAKE 1 TABLET BY MOUTH DAILY Xifaxan 550 mg tablet 550 mg PO BID Qty: 60 5RF Label Comments: TAKE 1 TABLET BY MOUTH TWICE DAILY vitamin A 10,000 unit capsule 10,000 unit PO .COMPLEX Qty: 40 3RF Rx Instructions: 10,000 units PO 3 times a week; magnesium oxide 400 mg magnesium capsule 400 mg PO BID Qty: 180 3RF zinc sulfate 50 mg zinc (220 mg) capsule 50 mg PO QDAY Qty: 90 3RF cyclobenzaprine 5 mg tablet 5 mg PO QDAY PRN (Reason: muscle spasm) Qty: 15 0RF lactulose 10 gram/15 mL solution 20 g PO TID Qty: 946 0RF spironolactone 50 mg tablet 50 mg PO QDAY Qty: 30 0RF lidocaine 5 % adhesive patch,medicated 1 patch topical QDAY Qty: 30 0RF Rx Instructions: leave on most painful area for up to 12 hrs diclofenac sodium [Voltaren Arthritis Pain] 1 % gel 2 g topical QID Qty: 100 0RF Rx Instructions: apply to single elbow, wrist or hand; for hand includes palm/fingers/back of hand cholecalciferol (vitamin D3) 10 mcg (400 unit) capsule 10 mcg PO QDAY Qty: 30 0RF acetaminophen [Tylenol Extra Strength] 500 mg tablet 500 mg PO Q6H PRN (Reason: pain) Qty: 60 0RF Follow Up/Referrals: Provider,Not a Local [Referring] - Stand Alone Forms: MyHealth Info Instructions
--- NOTE | 2022-02-10 08:20 | CRLHL7_ITS ---
For Patients: As a result of the Century Cures Act, medical imaging exams and procedure reports are released immediately into your electronic medical record. You may view this report before your referring provider. If you have questions, please contact your health care provider. Indication: C/O BILAT LEG PAIN, BOWEL/BLADDER DYSFUNCTION Technique: Routine noncontrast CT lumbar spine. Please note that all CT scans at this facility use dose modulation, iterative reconstruction, and/or weight-based dosing when appropriate to reduce radiation dose to as low as reasonably achievable. Comparison: CT 01/31/2022 Findings: Mild compression fracture deformity L3 noted along with T12. Moderate compression deformity of L1. Subtle fracture inferior endplate L5. Subtle fracture inferior endplate L2. Osteopenia/osteoporosis. No pars interarticularis fracture/defect. No foraminal stenosis. No spondylolisthesis. No canal stenosis. Intra-abdominal ascites and pancreatic calcifications again noted along with mild retroperitoneal adenopathy. Impression: Multiple compression fractures involving T12, L1, L2, L3 and L5. These are all likely similar compared to the most recent study. However, these are all new since May 10, 2016. Diffuse bone loss is present compatible with at least osteopenia and probable osteoporosis. No evidence of canal or foraminal stenosis. Diffuse ascites and chronic pancreatitis. Please note that all CT scans at this facility use dose modulation, iterative reconstruction, and/or weight-based dosing when appropriate to reduce radiation dose to as low as reasonably achievable. Dictated by Ervin Hyde MD @ 02/10/2022 10:04:06 AM (Electronically Signed)
--- OUTSIDE RECORDS SUMMARY | 2022-02-10 09:25 | XMS_ITS | Encounter Summary ---
:[address] [facility] Address [address] [place] [address] Care Team Providers Name Role Phone Ana Red P.A.-C. Primary Care Provider [phone] Encounter Details Date Type Department Care Team Description 02/09/2022 Clinical Communication Department of [facility] Perez Medicine in [address] [address] [place], [place] [phone] [address] (Work) [phone] Social History Tobacco Use Types Packs/Day Years [...] often do you have a drink Never 02/10/2022 containing alcohol? How many drinks containing alcohol [...] More than three melony es a week 02/10/2022 talk on the phone with family, friends, or neighbors? How often do you get together with friends Once a week 02/10/2022 or relatives? How often do you attend sikhism or Patient refused 2021 caodaism services? Do you belong to any clubs or No 02/10/2022 organizations such as sikhism groups, unions, fraternal or athletic groups, or school groups? How often do you attend meetings of the Patient refused 02/10/2022 clubs or organizations you belong to? Are you now , , , Living with partner 02/10/2022 , never or living with a partner? Physical Activity Answer Date Recorded On average, how many days per week do you engage in moderate to 0 days 02/10/2022 strenuous exercise (like walking fast, running, jogging, dancing, swimming, biking, or other activities that cause a light or heavy sweat)? On average, how many minutes do you engage in exercise at th is 10 min 02/10/2022 level? Stress Answer Date Recorded Do you feel stress - tense, restless, nervous, or anxious, R ather much 02/10/2022 or unable to sleep at night because your mind is troubled all the time - these days? Financial Resource Strain Answer Date Recorded How hard is it for you to pay for the very basics like food, Hard 02/10/2022 housing, medical care, and heating? Intimate Partner Violence Answer Date Recorded Within the last year, have you been afraid of your partner o r No 02/10/2022 ex-partner? Within the last year, have you been humiliated or emotionall y No 02/10/2022 abused in other ways by your partner or ex-partner? Within the last year, have you been kicked, hit, slapped, or No 02/10/2022 otherwise physically hurt by your partner or ex-partner? Within the last year, have you been raped or forced to have any No 02/10/2022 kind of sexual activity by your partner or ex-partner? Food Insecurity Answer Date Recorded Within the past 12 months, you worried that your food would Never true 02/10/2022 run out before you got money to buy more. Within the past 12 months, the food you bought just didn't N ever true 02/10/2022 last and you didn't have money to get more. Transportation Needs Answer Date Recorded In the past 12 months, has lack of transportation kept you f rom Yes 02/10/2022 medical appointments or from getting medications? In the past 12 months, has lack of transportation kept you f rom Yes 02/10/2022 meetings, work, or getting things needed for daily living? Housing Stability Answer Date Recorded In the last 12 months, was there a time when you were Patien t refused 02/10/2022 not able to pay the mortgage or rent on time? In the last 12 months, how many places have you lived? 1 02/10/2022 In the last 12 months, was there a time when you did No 02/10/2022 not [address] to sleep or slept in a long-term (including now)? Education Answer Date Recorded What is the highest level of school Associate degree: ruth barker, 07/16/2021 you have completed or the highest technical, or vocational [facility] degree you have received? 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 Information Discussed Called and informed patient of recommendations per Ana Red P.A.-C. Patient states that sheis taking acetaminophen, flexeril, using ice and heat, the lidocaine patches and voltaren gel and isstill in a lot of pain. PLAN Disposition/Recommendation: notified provider and awaiting recommendations Information/Education: not applicable Caller agreeable to plan of care: yes The following references were used: provider Ana Red P.A.-C. Telephone Encounter - Toshia Kan - 02/09/2022 4:19 PM CDT Patient called and stated that since she cannot have anything for pain till her appointment with Farida Red, she wants to know what she can do for pain in the meantime. Please call patient back. [phone] Telephone Encounter - Ankita Peña - 02/09/2022 2:13 PM CDT SUBJECTIVE CHIEF COMPLAINT / REASON FOR CALL No chief complaint on file. Information Discussed Called and informed patient of recommendations per Ana Red P.A.-C. PLAN Disposition/Recommendation: self-care . appropriate at this time, patient encouraged to call back with questions Information/Education: patient/caller able to teach back Caller agreeable to plan of care: yes The following references were used: provider Ana Red P.A.-C. Telephone Encounter - Chhaya Brush - 02/09/2022 11:49 AM CDT Reason for Communication: Patient is calling she is being released from hospital today and is askingfor something for nerve pain - non narcotic - she is having pain in her lower back that goes down into her legs Current Can Nursing/Provider leave a detailed message?: yes you can Did the patient refuse triage through Nurse line? (for symptom based concerns): na Action Needed: Please send something to [facility] in [place] for her please Name of Medication (if relevant): what ever you can offer for her nerve pain Please send all scheduling replies to scheduling pool. documented in this encounter Plan of Treatment Upcoming Encounters Date Type Specialty Care Team Description Virtual Visit Transplant Matthew Jerome M .B.BGraeme, MJules [address] [place] [address] 2 Rain Reyes R.N. [address] [place] [phone] Telemedicine Transplant [facility] 2 Brigid noyola M.D. [address] [place] [phone] Office Visit [facility], 2 Medicine Vernell Perez [address] [place] [phone] Lab Laboratory Medicine Karin, 2 Adeline Gannon M.D., Ph.D. [address] [place] [phone] Lab Laboratory Medicine Karin, 2 Adeline Gannon M.D., Ph.D. [address] [place] [address] [phone] Office Visit Transplant Karin, 2 Adeline Gannon M.D., Ph.D. [address] [place] [phone] Office Visit Family Medicine Robbin Maria 2, M.D. [address] [place] [address] Appointment Radiology Matthew Jerome 2, M.B.BSumaSSuma, MJules [address] [place] [phone] Appointment Gastroenterology and Adrianne, 2 Hepatology Yue Burciaga M.D. [address] [place] [address] Office Visit Gastroenterology and Queenie Matthew 2 Hepatology Tyrell Rodriguez M.D. [address] [place] [phone] Appointment Radiology Queenie Matthew 2 Tyrell Rodriguez M.D. [address] [place] [phone] [facility] Cir[facility]os is Al[facility]olic (HCC) 2 Encounter Hepatology Tyrell Rodriguez M.D. [address] [place] [phone] Anesthesia Event Gastroenterology and Rl, 2 Hepatology Ervin Burgos M.D. [address] [place] [phone] Surgery Gastroenterology and [facility] ESOPHAG OGASTRODUODENOSCOPY 2 Hepatology Joshua RodriguezBSumaBLilian Bedolla [address] [place] [phone] Scheduled Procedures Name Priority Associated Diagnoses Date/Time ESOPHAGOGASTRODUODENOSCOPY Cirrhosis Alc oholic (HCC) 03/20/2022 8:45 AM COMPLAINT COORDINATOR Hypertension Portal (HCC) documented as of this encounter Visit Diagnoses Not on filedocumented in this encounter Additional Health Concerns Assessment Noted Time PHQ-9 Depression Total Score: 10 10/06/2021 5:00 PM CD T documented as of this encounter Care Teams Auditor Medical Claims Relationship Specialty Start Date End Date [facility], Ana, P.A.-C. PCP - General Internal Medicine 12/01/[address] [place] [address] [place] [phone] [facility] 08/25/21 Ervin Schroeder MD Referring Provider Family Medicine 03/24/[address] [place] [address] [place] [address] documented as of this encounter
--- OUTSIDE RECORDS SUMMARY | 2022-02-10 09:25 | XMS_ITS | Encounter Summary ---
:1990 Author Organization [facility] Address [address] [place] [address] Care Team Providers Name Role Phone Ana Red P.A.-C. Primary Care Provider [phone] Encounter Details Date Type Department Care Team Description 02/04/2022 Orders Only RST HIM Sara Gracia R, [address] [place] [phone] [place] [phone] (Wo rk) Social History Tobacco Use Types [...] How often do you attend mormonism or Patient refused 2021 gnosticism services? 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 [address] [place] [phone] Telemedicine Transplant Ashtyn 2 Brigid noyola M.D. [address] [place] [phone] Office Visit [facility], 2 Medicine Vernell Perez [address] [place] [phone] Lab Laboratory Medicine Karin, 2 Adeline Gannon M.D., Ph.D. [address] [place] [phone] Lab Laboratory Medicine Karin, 2 Adeline Gannon M.D., Ph.D. [address] [place] [phone] Office Visit Transplant Karin, 2 Adeline Gannon M.D., Ph.D. [address] [place] [phone] Office Visit Family Medicine Robbin Maria 2, M.D. [address] [place] [phone] Appointment Radiology Matthew Jerome 2 Y, M.B.B.SSuma, Lilian [address] [place] [address] Appointment Gastroenterology and Adrianne, 2 Hepatology Yue Burciaga M.D. [address] [place] [phone] Office Visit Gastroenterology and Matthew Jerome 2 Hepatology Jennifer M.B.B.SLilian Moise [address] [place] [phone] Appointment Radiology Matthew Jerome 2 Y, M.B.B.SLilian Moise [address] [place] [phone] Hospital Gastroenterology and [facility] Cirrhos is Alcoholic (HCC) 2 Encounter Hepatology Tyrell Rodriguez M.D. [address] [place] [phone] Anesthesia Event Gastroenterology and [facility], 2 Hepatology Ervin Burgos M.D. [address] [place] [address] [phone] Surgery Gastroenterology and [facility] ESOPHAG OGASTRODUODENOSCOPY 2 Hepatology Tyrell Rodriguez M.D. 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 PCP - General Internal Medicine 12/01/[address] [place] [address] [place] [phone] [facility] [place] [facility] 08/25/21 Ervin Schroeder MD Referring Provider Family Medicine 03/24/[address] [place] [address] [place] [address] documented as of this encounter
--- OUTSIDE RECORDS SUMMARY | 2022-02-10 09:25 | XMS_ITS | Clinical Summary ---
:1990 Author Organization [facility] Address [address] [place] [address] Care Team Providers Name Role Phone Ana Red P.A.-C. Primary Care Provider [phone] Source Comments Patient records contain information from all sites at [facility]. For routine questions regarding patient records, call [phone] during business hours, M-F 8:00 AM - 5:00 PM Central Time. Record requests for emergency care only can be directed to [phone] at any time.[facility] Allergies Active Allergy Reactions Severity Noted Date [...] (DRISDOL) 50,000 Unit by mouth once a (Stop Taking at capsule week. Mondays Discha rge) folic acid 1 mg Take 1 mg by 0 01/30 D iscontinued tablet mouth daily. vitamin A 3,000 mcg Take 1 capsule 50 capsule 0 10/08/2021 Discontinued (10,000 Unit) (3,000 mcg total) (Reorder) capsuleIndications: by mouth 3 Cirrhosis Alcoholic (three) times a (HCC), Deficiency week for 50 Vitamin A doses. spironolactone Take 2 tablets 180 tablet [...] 30 Unspecified minutes before your scheduled paracentesis traZODone (DESYREL) Take 1 tablet 30 tablet 0 01/07/202201/14 Discontinued 100 mg tablet (100 mg total) by (Stop Taking at mouth at bedtime Dis charge) as needed for sleep. cyclobenzaprine Take 1 tablet (5 15 tablet 0 01/07/202201/20 Discontinued (FLEXERIL) 5 mg mg total) by ( Reorder) tablet mouth daily as needed for muscle spasms. acetaminophen Take 1 tablet 60 tablet 3 01/14/202201/27 D iscontinued (TYLENOL) 500 mg (500 mg total) (Stop Taking at tablet mouth every 6 [...] lactulose (CHRONULAC) Take 30 mL (20 g 30993 mL 3 01/27/202201/29 Discontinued 20 gram/30 mL [...] D 02/01/2022 Esophageal Varices Without Bleeding 01/28/2022 Cirrhosis Alcoholic 12/10/2021 Overview: Added automatically from request for dolly daley [id number] Smoking Tobacco Use Personal History 10/10/2021 Overview: Quit smoking spring 2021. 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 Follow-up 02/10/2022 Documentation Gastroenterology and Shayne Hepatology Tyrell Lopez 02/09/2022 [facility], [facility] Medicine Frances PerezASuma-CSuma 02/09/2022 Clinical Anesthesiology Alyssa Arana schedule d for Communication S, R.N. 02/1002/05/2022 Hospital Encounter Radiology Matthew Jerome, Chronic Pain Syndrome (Primary Dx); Lilian Santillan Ascites Chron ic; Hypertension Po rtal (HCC); Hepatic Failure Unspecified Without Coma (HCC); Alcoholic Cirrh osis Of Liver With Ascites (HCC) 02/04/2022 Orders Only Acute Care Sara Gracia M.D. 02/04/2022 Clinical Gastroenterology and Matthew Jerome, Phone Contact (RN and Communication Hepatology Lilian Santillan MD follow up ) 02/04/2022 [facility], Post Hosp ital Communication Solitario Govea R.N. Follow-up (LA CE - 78) 02/03/2022 Clinical Gastroenterology and Matthew Jerome, Communication Hepatology Lilian Santillan 02/02/[address] [facility], [facility] Shanita Perez.A.-C. 02/02/2022 [facility] Medicine Shanita Perez.A.-C. 02/01/2022 Emergency Ashlyn Paty Pain Flank (Pr imary Dx); - L, P.A.-C. Ascites Chronic; 02/03/2022 Ervin Mazariegos Thrombocytopen ia (HCC); Callie Johnson. Cirrhosis Alcoholic (HCC); Vj Rodrigez B, Hypertension P ortal (HCC); M.Karan., Ch.B. Abnormal Liver Function Test 01/30/2022 Clinical Acute Care Ashley Gracia M.D. 01/30/2022 Orders Only Acute Care Sara Gracia M.D. 01/30/2022 Clinical Family Medicine Nighat Dickson Post Hospi meagan Communication J, R.N. Follow-up 01/30/2022 Orders Only [facility] Internal Hussein Mccormickic Solitario Hudson M.D. 01/30/2022 Clinical [facility] Internal Nguyễn, Post Hosp ital Communication Medicine Parris Schaefer, Follow-up R.N. 01/30/[address] [facility], [facility] Medicine Ana, P.A.-C. 01/29/[address] [facility], Med Refil l Medicine Ana, P.A.-C. 01/29/2022 Orders Only Pharmacy Genaro Handley 01/29/2022 Clinical Transplant Adry Peterson Phone Contact Communication 01/28/2022 Virtual Visit Transplant Matthew Jerome Y, Canceled (Danie albright: M.B.B.S., M.D. Hospitalized / ill) 01/28/2022 Clinical Acute Care Adrianne, Pre-visit Testi ng Communication Gary Tenorio M.Jeri 01/27/2022 Orders Only Pharmacy Evi Lanier 01/26/2022 Anesthesia Event Gastroenterology and Gildardo Hickey Hepatology E, COLLAR FOLDER OPERATOR, ROBOTICS TECHNICIAN, DNAP Catia Green, COLLAR FOLDER OPERATOR, ROBOTICS TECHNICIAN, DNAP 01/26/2022 Ancillary Procedure 01/26/2022 Clinical Pharmacy Christopher, Nicole Rx Prior Communication A Authorization (PA DENIED - LIDOCA INE 5% PATCH) 01/26/2022 Orders Only Pharmacy Christopher, Nicole A 01/23/2022 Ancillary Procedure 01/23/2022 Anesthesia Event Gastroenterology and Roseanne, Hepatology Allegra Wilkes, COLLAR FOLDER OPERATOR, ROBOTICS TECHNICIAN 01/22/2022 [facility], Form Revi ew Communication Medicine Ana, ([facility] P.A.-C. med reconciliat ion) 01/20/2022 Hospital Encounter Cody Knigth Failure Renal Acute (Acute Kidney Injury) (HCC) (Primary Dx); - Callie Burciaga. Cirrhosis Alcoholic (HCC); 01/29/2022 Mhayamaguisiah, Alcohol Use Uns pecified With Unspecified Alcohol [...] Wit hout Coma (HCC) 01/20/[address] [facility], Pain Low Back Unspecified (Primary Dx); Medicine Ana, Cirrhosis Alcoh olic (HCC); P.A.-C. Ascites; Long QT Syndrom e; Rhinitis Allerg ic; Alcohol Use Uns pecified With Unspecified Alcohol Induced Disorder (HCC) 01/20/2022 Clinical Gastroenterology and Felicita Spicer Communication Hepatology E, L.P.N. 01/20/[address] [facility], Med Refil l Medicine Ana, P.A.-C. 01/20/2022 Orders Only Pharmacy Lina Johnson 01/19/[address] [facility], Medicine Ana, P.A.-C. 01/19/2022 Orders Only Transplant Ailts, Laney Johnson M.A.N., R.N., C.C.T.C. 01/19/[address] [facility], Communication Medicine Ana, P.A.-C. 01/17/2022 Clinical Gastroenterology and Ervin Mckeon Communication Hepatology M.D., Ph.D. 01/16/2022 Clinical Transplant Fabrizio, Phone Contact; Communication Lilian Rowland, Appointment (LABs) Ph.D. 01/16/2022 Clinical Gastroenterology and Digna Campbell M.D. 01/15/2022 Clinical Transplant Quang, Phone Contact Communication Parris 01/15/2022 Clinical [facility] Internal [place], Post Hosp ital Communication Medicine Andrew LarsonNSuma Follow-up 01/14/2022 Clinical Transplant Joseysarah, Appointment (Oc tober Communication Adeline Gannon, follow up) Lilian, Ph.D. 01/13/2022 Telemedicine Transplant Karin, Moderate Or Sev ere Adeline Gannon, Use Disorder Lilian, Ph.D. (Dependence) Alcohol Cathleen, Remission (HCC) Elena Burgos (Primary Dx) 01/13/2022 Telemedicine Transplant Lambert, Cirrhosis Alcoh olic Joel Gannon, (HCC) (Primary Dx) L.I.C.S.W., M.S.W. 01/13/2022 Clinical Gastroenterology and Digna Campbell Hepatology Lilian Schaefer 01/13/2022 Orders Only Social Work Joel Tan, L.I.C.S.W., M.S.W. 01/13/2022 Clinical Gastroenterology and Digna Campbell Hepatology Lilian Schaefer 01/09/2022 Hospital Encounter Jose, Hepatic E ncephalopathy Without Coma (HCC) (Primary Dx); - Migue Llanes Jr., Deficiency Vi tamin A; 01/14/2022 Lilian Cirrhosis Alcoholic (HCC); Reyes, Pain Low Back U nspecified; Reese Burgos, Decline Functio nal Status [R53.81 (ICD-10-CM)] Sree Up M.D. 01/08/2022 [facility], Communication Medicine Farida Perez-CSuma 01/07/[address] [facility], Hypertens ion Portal (HCC) (Primary Dx); Solitario Perez, Cirrhosis Alcoh olic (HCC); P.A.-C. Ascites; Pancreatitis Ch ronic (HCC); Pain Low Back M echanical 01/07/2022 Patient Self-Triage Symptom Tribal Judge, Provider 01/06/2022 Clinical Gastroenterology and Felicita Spicer Communication Hepatology E, L.P.N. 12/27/2021 Patient Self-Triage Symptom Tribal Judge, Provider 12/25/[address] [facility], Communication Medicine Carlotta PerezC. 12/21/2021 Emergency Emergency Medicine Gonzalez, Ascites ( Primary Dx) Ted Johnson M.D., Ph.D. Clifton Liu M.D. 12/19/2021 Emergency Emergency Medicine Gonzalez, Pain Back (Primary - Ted Johnson M.D., Dx) 12/20/2021 Ph.D. Migue Garcia Jr., M.D. 12/19/2021 Nurse Triage [facility] Internal [facility], Back Pain Medicine Ben Johnson R.N. 12/18/2021 Orders Only Gastroenterology and Mousa, Matthew Y, Mood Disorder (HCC) (Primary Dx); Hepatology M.B.B.SSuma, MJules Anxiety Disor ijeoma Unspecified 12/15/2021 Lab Laboratory Medicine Karin, Alcohol Moderate Or Severe Use Disorder (Dependence) Uncomplicated (HCC); Adeline Gannon, Cannabis Use Un specified Uncomplicated Elizabeth.Jeri, Ph.D. 12/12/2021 Documentation Transplant LambertJoel, LSumaI.C.S.W., M.S.W. 12/11/2021 Clinical Transplant Fabrizio, Phone Contact; Communication Lilian Rowland, Appointment (LABS) Ph.D. 12/11/2021 Clinical Gastroenterology and Felicita Spicer Communication Hepatology Patrica, LSumaP.N. 12/11/2021 Clinical [facility] Internal [facility], Disabilit y Parking Communication Medicine Ana, Certificate P.A.-C. 12/10/2021 Office Visit Gastroenterology and Mousa, Matthew Y, Cirrh osis Alcoholic (HCC) (Primary Dx); Hepatology M.B.B.SLilian Moise Hypertension Portal (HCC); Thrombocytopeni a (HCC); Abnormal Liver Function Test; Deficiency Katy min A; Ascites Chronic ; Hepatic Encepha lopathy Without Coma (HCC) 12/04/2021 Emergency Emergency Medicine Bellamkonda, Ascites ( Primary Dx); Neeru Palma M.D. 12/04/2021 Clinical Gastroenterology and Ashley Morelos Hepatology Nabila Schaefer M.D. 12/04/2021 Clinical Gastroenterology and Ashley Morelos Hepatology Nabila Schaefer M.D. 12/04/2021 Clinical Gastroenterology and Jethro Communication Hepatology Nabila Schaefer M.D. 12/04/2021 Documentation Gastroenterology and Jethro, Hepatology Nabila Schaefer M.D. 12/04/2021 Clinical Gastroenterology and Jethro Communication Hepatology Nabila Schaefer M.D. 12/03/2021 Clinical [facility] Internal [place], [place] / Disha eal Letter Communication Medicine Lilian Gee, M.S. 12/03/2021 Orders Only Ana Red, P.A.-C. 12/02/2021 Hospital Encounter Laboratory Medicine Matthew Jerome, Cirrhosis Alcoholic (HCC); M.B.Lilian Salas Hypertension Portal (HCC); Thrombocytopeni a (HCC); Abnormal Liver Function Test; Change Mental S tatus 12/02/2021 Office Visit [facility] Acute A nd Subacute Hepatic Failure Without Coma (HCC) (Primary Dx); Medicine Sunny hanley D.O. Pancreatitis Chronic (HCC); Etl Bi Developer Use O f Opiate Analgesic; Alcohol Use Uns pecified With Unspecified Alcohol Induced Disorder (HCC); Alcoholic Cirrh osis Of Liver Without Ascites (HCC); Ascites Chronic ; Insomnia; High Risk Medic ation 12/02/2021 [facility] Sina Communication Solitario Gee M.D., M.S. 12/02/2021 Clinical Pharmacy Ashley Be 12/02/2021 [facility] Communication Medicine Sunny hanley D.O. 12/02/2021 Orders Only Ana Red, P.A.-C. 12/02/2021 Clinical [facility] Internal [place], Post Hosp ital Communication Medicine Ciara Johnson RSumaNSuma Follow-up 11/27/2021 Orders Only [facility] Internal Solitario Andino M.D., M.S. 11/26/2021 Clinical [facility] Internal Shannan Rand Communication Solitario Quintana 11/26/2021 Clinical Gastroenterology and Matthew Jerome, Communication Hepatology VikBLilian Bedolla 11/26/2021 Community Orders Schroeder, Steatohepat itis Non Alcoholic (Primary Dx); Ervin Schaefer M.D. Unspecified Ci rrhosis Of Liver (HCC) 11/18/2021 Clinical Alina Carranza Communication R, R.N. 11/14/2021 Community Orders Alexandre, Abuse Tobac co Smoking (Primary Dx); Ervin Schaefer M.D. Unspecified Ci rrhosis Of Liver (HCC) 11/12/2021 Hospital Encounter Di Rosaura nicolejovitacarlota (Primary Dx); - Lilian Johnson, Change Mental S tatus; 11/26/2021 [facility] Malaise (Concern For Covid-19); Greyson, Cirrhosis Alcoh olic (HCC) Jo Ann Gannon M.D., M.S. Jody Aguilar MMinoo, B.Chir. 11/12/2021 Clinical Gastroenterology and Mousa, Matthew Y, Covid Positive Communication Hepatology MMinooBGraeme, Lilian 11/10/2021 Episode Changes Transplant Ailts, Laney Johnson M.A.N., R.N., C.C.T.C. 11/09/2021 Hospital Encounter Greyson, Hepatic - Jo Ann Gannon, Encephalopathy 11/11/2021 Lilian, M.S. Without Coma (HCC) Jody Aguilar (Primary Dx) S, M.BSuma, B.Chir. from Last 3 Months Immunizations Name Administration [...] Grandfather Bradley Cespedes Arthritis Maternal Grandmother Desire Coy Asthma Maternal Grandmother Desire Cespedes Migraines Maternal Grandmother Desire Cespedes Anxiety disorder Mother Parris Diabetes Paternal Grandfather Laureano Carias Prostate cancer Paternal Grandfather Laureanorigo Carias ADD Sister Christina Relation Name Status Comments Brother 1 Curt Brother 2 Ricardo Father Roscoe Carias Maternal Grandfather Bradley Cespedes Maternal Grandmother Desirejoe Cespedes Mother Parris Paternal Grandfather Laureano Carias [...] How often do you attend gnosticism or Patient refused 2021 orthodoxy services? Do you belong to any clubs or No 02/10/2022 organizations such as gnosticism groups, unions, fraternal [...] Female 04/12/2021 7:39 PM DIRECTOR OF NEUROLOGY Last Filed Vital Signs Vital Sign Reading Time Taken Comments Blood Pressure 104/60 02/05/2022 3:50 PM CDT Pulse 85 02/05/2022 3:55 PM CDT Temperature 36.7 ??C (98.1 ??F) 02/03/2022 4:22 PM CDT Respiratory Rate 16 02/03/2022 4:22 PM CDT Oxygen Saturation 94% 02/05/2022 3:55 PM CDT Inhaled Oxygen Concentration - - Weight 64.3 kg (141 lb 12.1 oz) 02/01/2022 5:20 PM CDT Height 157.5 cm (5' 2) 02/01/2022 5:20 PM CDT Body Mass Index 25.93 02/01/2022 5:20 PM CDT Plan of Treatment Upcoming Encounters Date Type Specialty Care Team Description Virtual Visit Transplant Matthew Jerome M .B.B.S., M.D. [address] [place] [phone] 2 Rain Reyes R.N. [address] [place] [phone] Telemedicine Transplant LinaFederico 2 Brigid noyola M.D. [address] [place] [phone] Office Visit Community Internal Carlos, 2 Medicine Vernell Perez [address] [place] [address] Lab Laboratory Medicine Karin, 2 Adeline Gannon M.D., Ph.D. [address] [place] [phone] Lab Laboratory Medicine Karin, 2 Adeline Gannon M.D., Ph.D. [address] [place] [phone] Office Visit Transplant Karin, 2 Adeline Gannon M.D., Ph.D. [address] [place] [phone] Office Visit Family Medicine Robbin Maria 2, M.D. [address] [place] [phone] Appointment Radiology Luischantell Matthew 2 YVikBLilian Bedolla [address] [place] [phone] Appointment Gastroenterology and Adrianne, 2 Hepatology Yue Burciaga M.D. [address] [place] [phone] Office Visit Gastroenterology and LuisNew abdular 2 Hepatology Vik RodriguezBLilina Bedolla [address] [place] [phone] Appointment Radiology Matthew Jerome 2 Tyrell Rodriguez M.D. [address] [place] [phone] Hospital Gastroenterology and Luischantell Matthew Cirrhos is Alcoholic (HCC) 2 Encounter Hepatology Joshua RodriguezBSumaBLilian Bedolla [address] [place] [phone] Anesthesia Event Gastroenterology and Rl, 2 Hepatology Ervin Burgos M.D. [address] [place] [phone] Surgery Gastroenterology and LuisNew abdular ESOPHAG OGASTRODUODENOSCOPY 2 Hepatology Joshua RodriguezB.BLilian Bedolla [address] [place] [phone] Scheduled Procedures Name Priority Associated Diagnoses Date/Time ESOPHAGOGASTRODUODENOSCOPY Cirrhosis Alc oholic (HCC) 03/20/2022 8:45 AM DIRECTOR OF NEUROLOGY Hypertension Portal (HCC) Health Maintenance Due Date [...] 01/25/2022, 09/30/2021 Medical Devices Implanted Type Area Finishing Supervisor Plastic Sheets Device Shelf Model / Identifier Expiration Serial / Date Lot Intrauterine Intrauterine N/A: Device Device Cervix Procedures Procedure Name Priority Date/Time Associated Comments Diagnosis US PARACENTESIS WITH RAD - Routine 02/05/2022 Ascites Chronic Res ults for IMAGING GUIDANCE (most 3:53 PM CDT this proced ure inpatients and are in the all results outpatients) section. CELL COUNT AND Timed 02/05/2022 Ascites Chronic Results fo r DIFFERENTIAL, BF 3:17 PM CDT this proced ure are in the results section. GRAM STAIN Timed 02/05/2022 Ascites Chronic Results for 3:17 PM CDT this procedure are in the results section. US PARACENTESIS WITH RAD - Routine 02/02/2022 [...] inpatients) section. BACTERIA / RAUDEL STAT 02/01/2022 Results f or CULTURE, BLOOD 10:47 AM CDT this procedur e are in the results section. LACTATE, POCT, B STAT 02/01/2022 Results for [...] results section. BACTERIA / RAUDEL STAT 02/01/2022 Results f or CULTURE, BLOOD 10:34 AM CDT this procedur e are in the results section. LACTATE, POCT, B Routine 02/01/2022 Results for [...] Months Results US Paracentesis with Imaging Guidance (02/05/2022 3:53 PM CDT)Only the most recent of9 resultswithin the time period is included. Anatomical Region Laterality Modality Abdomen, Ultrasound RST LOS, Ultrasound ARZ LOS, Procedure F LA N/A Ultrasound LOS, Abdominal FLA LOS, Procedural Specimen (Source) Anatomical Collection Method Collection Time Re ceived Time Location / / Volume Laterality 02/05/2022 4:07 PM CDT Impressions 02/05/2022 4:09 PM CDT Ultrasound-guided paracentesis. Albumin was replaced per ordering provider request. EP Narrative 02/05/2022 4:09 PM CDT EXAM: US PARACENTESIS WITH IMAGING [...] size: 5 Fr centesis catheter. Volume aspirated: 3057 mL of clear yello w fluid. Complication: None. Blood loss: None. Purpose: Diagnostic and therapeutic. PATIENT INSTRUCTIONS: Patient may be dis missed from the radiology department when dismissal criteria met. POST-PROCEDURE DIAGNOSIS: Ascites. Procedure Note Daniel Shah M.D. - 02/05/2022Form atting of this note might be different [...] size: 5 Fr centesis catheter. Volume aspirated: 3057 mL of clear yello w fluid. Complication: None. Blood loss: None. Purpose: Diagnostic and therapeutic. PATIENT INSTRUCTIONS: Patient may be dis missed from the radiology department when dismissal criteria met. POST-PROCEDURE DIAGNOSIS: Ascites. IMPRESSION: Ultrasound-guided paracentesis. Albumin was replaced per ordering provider request. EP Matthew Santillan M.D. IMG US PROCEDURES Cell Count and Differential, Body Fluid (02/05/2022 3:17 PM CDT)Only the most recent of7 resultswithin the time period is included. [facility] Method Time Signature Fluid Type Peritoneal- 02/05/2022 DHPM Paracentesi 4:19 PM CDT s Gross Serous 02/05/2022 DHPM Appearance 4:19 PM CDT Total Nucleated 85 /mcL 02/05/2022 DHPM Cells 4:19 PM CDT Comment: ----REFERENCE VALUE---- Synovial: <150 /mcL Peritoneal: <500 /mcL Pleural: <500 /mcL Pericardial: <500 /mcL ----ADDITIONAL INFORMATION---- This test has been modified from the doug last's instructions. Its performance characteri stics were determined by [facility] in a manner co nsistent with CLIA requirements. This test has not bee n cleared or approved by the U.S. Food and Drug Admin istration. Lymphocytes 78 Synovial <75% % 02/05/2022 7:00 PM CDT DHPM Monocytes/Macrophages 21 Synovial <70% % 02/05/2022 7 :00 PM CDT DHPM Other Cells 1 % 02/05/2022 7:00 PM CDT DHPM Comment: ----REFERENCE VALUE---- The reference range and other method performance specifications have not been established for this bodyfluid. The test result must be integrated into the clinical context for interpretation. Other Cells Are: Mesothelial cells 02/05/2022 8:38 PM CDT DHPM Comment No blasts or malignant cells seen. 02/05 8:38 PM CDT DHPM Reviewed by: Ruth 02/05/2022 8:38 PM CDT DHPM Specimen Anatomical Collection Method Collection Time Receive d Time (Source) Location / / Volume Laterality Fluid 02/05/2022 3:17 PM 2 3:54 (Peritoneal CDT PM CDT Fluid) Matthew Santillan M.D. LAB BODY FLUIDS AND STOOLS ORDERABLES Performing Organization Address City/[facility] Code Phon e Number [facility] - [address] [place], [place] [address] [place] [address] Laboratories-[facility] 200 [facility] Gram Stain (02/05/2022 3:17 PM CDT)Only the most recent of4 resultswithin the time period is included. [facility] Method Time Signature Gram Stain No organisms seen. 02/05/2022 DTL White blood cells present. 9:10 PM CDT Specimen Anatomical Collection Method Collection Time Receive d Time (Source) Location / / Volume Laterality Fluid 02/05/2022 3:17 PM 2 4:39 (Peritoneal CDT PM CDT Fluid) Comment: Specimen Source Site: Fluid Matthew Santillan M.D. LAB MICROBIOLOGY - GENERAL ORDERABLES Performing Organization Address City/[facility] Phon e Number [facility] - [address] [place], [place] [address] [place] [address] Laboratories-[address] (ABNORMAL) Prothrombin Time (PT) (02/02/2022 6:14 AM CDT)Only the most recent of 12 resultswithin the time period is included. [facility] Method Time Signature Prothrombin 35.3 (H) 9.4 [...] City/State/ZIP Code Phon e Number [facility] - [address] [place] [address] [address] [place] [address] [facility]-[address] (ABNORMAL) CBC with Differential, Blood (02/02/2022 6:14 AM CDT)Only the most recent of23 resultswithin the time period is included. [facility] Method Time Signature Hemoglobin 7.3 (L) [...] [facility] Code Phon e Number [facility] - [address] [place] [address] Laboratories-[address] CK (Creatine Kinase) (02/02/2022 6:14 AM CDT) P athologist Signature Creatine Kinase 29 26 - 192 02/02/2022 DTL (CK), S U/L 7:44 AM CDT Specimen Anatomical Collection Method Collection Time Receive d Time (Source) Location / / Volume Laterality Blood (Blood, 02/02/2022 6:14 AM 02/03/20 22 7:21 Venous) CDT AM CDT Darrick Santillan LAB BLOOD ADD-ON Performing Organization Address City/[facility]/ZIP Code Phon e Number [facility] - [address] [place] [address] Laboratories-[address] (ABNORMAL) Basic Metabolic Panel (02/02/2022 6:14 AM CDT)Only the most recent of 24 resultswithin the time period is included. P athologist Signature Potassium, S 3.8 3.6 [...] City/State/ZIP Code Phon e Number [facility] - [address] [place] [address] [place] [address] Laboratories-[address] Chest Angiogram and Pulmonary Arteries [...] IUD.. Paty Goldberg P.A.-C. IMG CT PROCEDURES CT Abdomen Pelvis with IV [...] CDT Specific 1.020 1.005 - 02/01/2022 [facility] [place], 1.030 1:44 PM CDT POCT, U Blood, [...] City/State/ZIP Code Phon e Number POC [facility] [address] [place] [address] OUTPATIENT LABS PCED [facility] - [place], [place] [address] [place] [address] Osmolality, Urine (02/01/2022 1:37 [...] P.A.-C. LAB URINE ORDERABLES Performing Organization Address City/[facility] Phon e Number [facility] - [address] [place], [place] [address] [address] [place], [place] [id number] [place] [address] (ABNORMAL) Dipstick, Urine (02/01/2022 1:37 PM CDT)Only [...] P.A.-C. LAB URINE ORDERABLES Performing Organization Address City/[facility]/ZIP [facility] Phon e Number [facility] - [address] [place], [place] [address] [place], [place] [id number] [place] [address] pH, Random, Urine (02/01/2022 1:37 PM CDT)Only [...] P.A.-C. LAB URINE ORDERABLES Performing Organization Address City/[facility]/ZIP Code Phon e Number [facility] - [address] [place] [address] 05 [facility] [place] [address] Laboratories-[address] (ABNORMAL) Microscopic Manual (02/01/2022 1:37 PM CDT)Only [...] P.A.-C. LAB URINE ORDERABLES Performing Organization Address City/[facility] Code Phon e Number [facility] - [address] [place], [place] [address] [place] [address] [place] [address] Laboratories-[address] (ABNORMAL) Gram Stain, Urine (02/01/2022 1:37 [...] PM 2 2:08 CDT PM CDT Paty L Ashlyn P.A.-C. LAB URINE ORDERABLES Performing Organization Address City/[facility] Phon e Number [facility] - [address] [place], [place] [phone] [place] [address] (ABNORMAL) Urinalysis with Microscopic: Urine, Midstream (02/01/2022 [...] P.A.-C. LAB URINE ORDERABLES Performing Organization Address City/[facility]/ZIP Code Phon e Number [facility] - [address] [place] [address] 05 [facility] [place], [place] [id number] [place] [address] Lactate (02/01/2022 1:32 PM CDT)Only the most recent of5 resultswithin the time period is included. P athologist Signature Lactate, P 1.6 0.5 - 2.2 02/01/2022 ST[facility] mmol/L 1:50 PM CDT Specimen Anatomical Collection Method Collection Time Receive d Time (Source) Location / / Volume Laterality Blood (Blood, 02/01/2022 1:32 PM 10/02/20 22 1:37 Venous) CDT PM CDT Paty Goldberg P.A.-C. LAB BLOOD NON ADD-ON Performing Organization Address City/State/ZIP Code Phon e Number [facility] - [address] [place], [place] [address] [facility] [place] [place] [address] Laboratories-[facility] [address] DX Chest AP or PA and Lateral [...] Paty Goldberg P.A.-C. IMG DIAGNOSTIC IMAGING PROCE PERCY Bacteria / Raudel Culture, Blood # 2 (02/01/2022 10:47 AM CDT)Only the most recent of6 resultswithin the time period is included. [facility] Method Time Signature Bacteria/Adriana No growth 02/06/2022 DTL da Culture, after 5 1:02 PM CDT Blood days of incubation. Specimen (Source) Anatomical Collection Method Collection Time Re ceived Time Location / / Volume Laterality Blood (Blood, 02/01/2022 10:47 02/01/2022 Peripheral Draw) AM CDT 12:08 PM CD T Comment: Specimen Source Site: Blood Paty Goldberg P.A.-C. LAB MICROBIOLOGY - GENERAL O RDERABLES Performing Organization Address City/[facility]/ZIP [facility] Phon e Number [facility] - [address] [place], [place] [address] [address] [facility] DTL [place], [place] [phone] [place] [address] Venous Blood Gas and Electrolytes CG8+, POCT [...] POCT ORDERABLES - DEVICE Performing Organization Address [facility] Code Phon e Number [facility] - [address] [place], [place] [address] [facility] [place] [place] [address] Laboratories-[address] Lactate, POCT (02/01/2022 10:36 AM CDT)Only [...] POCT ORDERABLES - DEVICE Performing Organization Address City/[facility] Phon e Number [facility] - [address] [place], [place] [address] [facility] [place] [place] [address] Laboratories-[facility] 200 [facility] (ABNORMAL) Hepatic Function Panel (02/01/2022 10:34 AM CDT)Only the most recent of11 resultswithin the time period is included. Patholo [...] Phon e Number [facility] - [address] [place] [address] 05 [facility] [place] [address] Laboratories-[address] (ABNORMAL) Ammonia (02/01/2022 10:34 AM CDT)Only [...] e Number [facility] - [address] [place], [place] [address] [facility] [place] [place] [address] Laboratories-[facility] 200 [facility] ECG 12 Lead (02/01/2022 10:22 AM CDT)Only the most recent of4 resultswithin the time period is included. P athologist Signature Ventricular Rate 91 BPM MUSE ECG/Min [place] Interval 152 ms MUSE QRSD Interval 86 ms MUSE QT Interval 398 ms MUSE QTC Interval 489 ms MUSE P [place] -3 degrees MUSE R [place] 16 degrees MUSE T Wave [place] 5 degrees MUSE Specimen Anatomical Collection Method [...] System IMG CT PROCEDURES Performing Organization Address City/[facility]/ZIP Code Phon e Number IIMS IIMS NA (ABNORMAL) Hematocrit (01/28/2022 1:36 PM CDT)Only the most recent of2 results within the time period is included. athologist Signature Hematocrit 22.0 (L) 35.5 - 44.9 01/28/2022 [facility]10 PM CDT Specimen Anatomical Collection Method Collection Time Receive d Time (Source) Location / / Volume Laterality Blood (Blood, 01/28/2022 1:36 PM 01/29/20 22 2:08 Venous) CDT PM CDT Yue Silver M.D. LAB BLOOD ADD-ON Performing Organization Address City/[facility]/ZIP Code Phon e Number [facility] - [address] [place], [place] [address] [place] [address] Laboratories-[facility] 200 [facility] US Lower Extremity Veins Bilateral (01/28/2022 10:46 [...] man agement can be found on the [employer] site. Link [email or web address] Procedure Note Migue Talavera M.D. - 01/28/2022Form [...] man agement can be found on the [employer] site. Link [email or web address] IMPRESSION: 1. Negative for acute DVT within [...] Santillan LAB BLOOD ADD-ON Performing Organization Address City/[facility]/ZIP Code Phon e Number [facility] - [address] (ABNORMAL) CBC without Differential (01/28/2022 5:28 [...] LAB BLOOD ADD-ON Performing Organization Address City/[facility] Code Phon e Number [facility] - [address] [place] [address] [address] [facility] [place], [place] [phone] [place] [address] (ABNORMAL) PT-Fibrinogen (01/26/2022 6:58 PM CDT) P [...] e Number [facility] - [address] [place], [place] [address] [facility] [place] [address] Laboratories-[facility] [address] (ABNORMAL) DIC/ICF Profile (01/26/2022 6:58 PM CDT) [facility] Method Time Signature Prothrombin Time 25.2 (H) [...] 27.0 (H) 15.8 - 24.9 sec 01/28/20 22 10:57 AM CDT DTL Fibrinogen, Clauss, P 132 (L) 200 - 500 mg/dL 01/27/2022 9 :36 AM CDT DTL Comment: ----ADDITIONAL INFORMATION---- This test has been modified from the man ufacturer's instructions. Its performance characteri stics were determined by [facility] in a manner co nsistent with CLIA [...] 01/28/20 7:12 Venous) CDT AM CDT Narrative [facility] - [facility] - 01/27/2022 5:26 PM CDT Specimen Information: Specimen ID: [id number] Specimen Type: Blood Specimen Collection Start Date: 01/27/20 ??6:58 PM Specimen Received Date: 01/27/2022 ??7:1 2 AM Specimen ID: [id number] Specimen Type: Blood Specimen Collection Start Date: 01/27/20 ??6:58 PM Specimen Received Date: 01/27/2022 ??7:1 2 AM Specimen ID: [id number] Specimen Type: Blood Specimen Collection Start Date: 01/27/20 ??6:58 PM Specimen Received Date: 01/27/2022 ??7:1 2 AM Specimen ID: [id number] Specimen Type: Blood Specimen Collection Start Date: 01/27/20 ??6:58 PM Specimen Received Date: 01/27/2022 ??7:1 2 AM Specimen ID: [id number] Specimen Type: Blood Specimen Collection Start Date: 01/27/20 ??6:58 PM Specimen Received Date: 01/27/2022 ??7:1 2 AM Darrick Santillan LAB BLOOD NON ADD-ON Performing Organization Address City/State/ZIP Code Phon e Number [facility] - [address] [place] [address] [address] [place] [address] [facility] 200 [facility] (ABNORMAL) Coag Factor X Assay, P (01/26/2022 6:58 PM CDT) athologist Signature Coag Factor X 29 (L) 70 - 150 % 01/27/2022 DTL Assay, P 12:19 PM CDT Comment: ----ADDITIONAL INFORMATION---- This test has been modified from the man ufacturer's instructions. Its performance characteri stics were determined by [facility] in a manner co nsistent with CLIA requirements. This test has not bee n cleared or approved by the U.S. Food and Drug Admin istration. Specimen Anatomical Collection Method Collection Time Receive d Time (Source) Location / / Volume Laterality Blood 01/26/2022 6:58 PM 2 CDT 11:30 AM CDT Darrick Santillan LAB BLOOD ADD-ON Performing Organization Address [facility] Phon e Number [facility] - [address] [place], [place] [address] [place] [address] [facility]-[address] Reptilase Time, Plasma (01/26/2022 6:58 PM CDT) athologist Signature Reptilase Time, 21.0 14.0 - 23.9 01/27/2022 [facility] P sec 11:03 AM CDT Comment: ----ADDITIONAL INFORMATION---- This test has been modified from the doug last's instructions. Its performance characteri stics were determined by [facility] in a manner co nsistent with CLIA requirements. This test has not bee n cleared or approved by the U.S. Food and Drug Admin istration. Specimen Anatomical Collection Method Collection Time Receive d Time (Source) Location / / Volume Laterality Blood 01/26/2022 6:58 PM 2 7:12 CDT AM CDT Darrick Santillan LAB BLOOD ADD-ON Performing Organization Address City/[facility] Phon e Number [facility] - [address] [place] [address] [address] [place] [address] (ABNORMAL) Soluble Fibrin Monomer (01/26/2022 6:58 PM CDT) athologist Signature Soluble Fibrin 165 (H) <=8 mcg/mL 01/27/2022 DT Monomer 10:57 AM CDT Comment: ----ADDITIONAL INFORMATION---- This test was developed and its performa nce characteristics determined by [facility] in a manner co nsistent with CLIA requirements. This test has not bee n cleared or approved by the U.S. Food and Drug Admin istration. Specimen Anatomical Collection Method Collection Time Receive d Time (Source) Location / / Volume Laterality Blood 01/26/2022 6:58 PM 2 7:12 CDT AM CDT Darrick Santillan LAB BLOOD NON ADD-ON Performing Organization Address City/[facility]/ZIP [facility] Phon e Number [facility] - [address] [place], [place] [address] [facility] [place] [place] [address] Laboratories-[facility] 200 [facility] APTT Mix 1:1 (01/26/2022 6:58 PM CDT) P athologist Signature APTT Mix 1:1 28 25 - 37 sec 01/27/2022 DTL 11:04 AM CDT Comment: ----ADDITIONAL INFORMATION---- This test has been modified from the [place] luis fernandourer's instructions. Its performance characteri stics were determined by [facility] in a manner co nsistent with CLIA requirements. This test has not bee n cleared or approved by the U.S. Food and Drug Admin istration. Specimen Anatomical Collection Method Collection Time Receive d Time (Source) Location / / Volume Laterality Blood 01/26/2022 6:58 PM 2 7:12 CDT AM CDT Darrick Santillan LAB BLOOD ADD-ON Performing Organization Address City/[facility] Phon e Number [facility] - [address] [place] [address] [address] [facility] [place] [place] [address] Laboratories-[facility] 200 [facility] PT Mix 1:1 (01/26/2022 6:58 PM CDT) P athologist Signature PT Mix 1:1 11.8 9.4 - 12.5 01/27/2022 DTL sec 11:04 AM CDT Comment: ----ADDITIONAL INFORMATION---- This test has been modified from the doug ufacturer's instructions. Its performance characteri stics were determined by [facility] in a manner co nsistent with CLIA [...] e Number [facility] - [address] [place], [place] [address] [facility] [place] [address] Laboratories-[address] Dilute Russ[place] Viper Venom Time (DRVVT) (01/26/2022 6:58 PM CDT) P athologist Signature DRVVT Screen 0.85 <1.20 ratio 01/27/2022 DTL Ratio 11:04 AM CDT Specimen Anatomical Collection Method Collection Time Receive d Time (Source) Location / / Volume Laterality Blood 01/26/2022 6:58 PM 2 7:12 CDT AM CDT Darrick Santillan LAB BLOOD ADD-ON Performing Organization Address City/[facility] Code Phon e Number [facility] - [address] [place], [place] [address] [facility] [place] [place] [address] Laboratories-[address] (ABNORMAL) Coagulation Factor XII Activity Assay (01/26/2022 6:58 PM CDT) P athologist Signature Coag Factor XII 32 (L) 55 - 180 % 01/27/2022 DTL Assay, P 12:47 PM CDT Comment: ----ADDITIONAL INFORMATION---- This test has been modified from the man ufacturer's instructions. Its performance characteri stics were determined by [facility] in a manner co nsistent with CLIA requirements. This test has not bee n cleared or approved by the U.S. Food and Drug Admin istration. Specimen Anatomical Collection Method Collection Time Receive d Time (Source) Location / / Volume Laterality Blood 01/26/2022 6:58 PM 2 CDT 11:30 AM CDT Darrick Santillan LAB BLOOD ADD-ON Performing Organization Address City/[facility] Phon e Number [facility] - [address] [place], [place] [address] [facility] [place] [place] [address] Laboratories-[facility] 200 [facility] (ABNORMAL) Coagulation Factor XI Activity Assay (01/26/2022 6:58 PM CDT) P athologist Signature Coag Factor XI 18 (L) 55 - 150 % 01/27/2022 DTL Assay, P 12:47 PM CDT Comment: ----ADDITIONAL INFORMATION---- This test has been modified from the [place] ufacturer's instructions. Its performance characteri stics were determined by [facility] in a manner co nsistent with CLIA requirements. This test has not bee n cleared or approved by the U.S. Food and Drug Admin istration. Specimen Anatomical Collection Method Collection Time Receive d Time (Source) Location / / Volume Laterality Blood 01/26/2022 6:58 PM 2 CDT 11:30 AM CDT Darrick Santillan LAB BLOOD ADD-ON Performing Organization Address City/[facility] Phon e Number [facility] - [address] [place], [place] [address] [facility] [place] [place] [address] Laboratories-[address] (ABNORMAL) Coagulation Factor IX Activity Assay (01/26/2022 6:58 PM CDT) athologist Signature Coag Factor IX 29 (L) 65 - 140 % 01/27/2022 DTL Assay, P 12:47 PM CDT Comment: ----ADDITIONAL INFORMATION---- This test has been modified from the [place] cecilactemeliar's instructions. Its performance characteri stics were determined by [facility] in a manner co nsistent with CLIA requirements. This test has not bee n cleared or approved by the U.S. Food and Drug Admin istration. Specimen Anatomical Collection Method Collection Time Receive d Time (Source) Location / / Volume Laterality Blood 01/26/2022 6:58 PM 2 CDT 11:30 AM CDT Darrick DanielS. LAB BLOOD ADD-ON Performing Organization Address City/[facility] Phon e Number [facility] - [address] [place], [place] [address] [facility] [place] [place] [address] Laboratories-[facility] 200 [facility] Coagulation Factor VIII Activity Assay (01/26/2022 6:58 PM CDT) athologist Signature Coag Factor 93 55 - 200 % 01/27/2022 DT VIII Activity 12:19 PM CDT Assay, P Comment: ----ADDITIONAL INFORMATION---- This test has been modified from the [facility] health ger[facility] hospitalacturer's instructions. Its performance characteri stics were determined by [facility] in a manner co nsistent with CLIA requirements. This test has not bee n cleared or approved by the U.S. Food and Drug Admin istration. Specimen Anatomical Collection Method Collection Time Receive d Time (Source) Location / / Volume Laterality Blood 01/26/2022 6:58 PM 2 CDT 11:30 AM CDT Darrick DanielSSuma LAB BLOOD ADD-ON Performing Organization Address City/[facility] Phon e Number [facility] - [address] [place], [place] [address] [facility] [place] [place] [address] Laboratories-[facility] 200 [facility] (ABNORMAL) Coagulation Factor VII Activity Assay (01/26/2022 6:58 PM CDT) athologist Signature Coag Factor VII 13 (L) 65 - 180 % 01/27/2022 DTL Assay, P 12:19 PM CDT Comment: ----ADDITIONAL INFORMATION---- This test has been modified from the [place] cecilactemeliar's instructions. Its performance characteri stics were determined by [facility] in a manner co nsistent with CLIA requirements. This test has not bee n cleared or approved by the U.S. Food and Drug Admin istration. Specimen Anatomical Collection Method Collection Time Receive d Time (Source) Location / / Volume Laterality Blood 01/26/2022 6:58 PM 2 CDT 11:30 AM CDT Darrick DanielSSuma LAB BLOOD ADD-ON Performing Organization Address City/[facility] Phon e Number [facility] - [address] [place], [place] [address] [facility] [place] [place] [address] Laboratories-[facility] 200 [facility] (ABNORMAL) Coagulation Factor V Activity Assay (01/26/2022 6:58 PM CDT) P athologist Signature Coag Factor V 18 (L) 70 - 165 % 01/27/2022 DTL Assay, P 12:19 PM CDT Comment: ----ADDITIONAL INFORMATION---- This test has been modified from the [place] ufacturer's instructions. Its performance characteri stics were determined by [facility] in a manner co nsistent with CLIA requirements. This test has not bee n cleared or approved by the U.S. Food and Drug Admin istration. Specimen Anatomical Collection Method Collection Time Receive d Time (Source) Location / / Volume Laterality Blood 01/26/2022 6:58 PM 2 CDT 11:30 AM CDT Darrick DanielSSuma LAB BLOOD ADD-ON Performing Organization Address City/[facility] Phon e Number [facility] - [address] [place], [place] [address] [facility] [place] [place] [address] Laboratories-[address] (ABNORMAL) Coagulation Factor II Activity Assay (01/26/2022 6:58 PM CDT) athologist Signature Coag Factor II 28 (L) 75 - 145 % 01/27/2022 DTL Assay, P 12:19 PM CDT Comment: ----ADDITIONAL INFORMATION---- This test has been modified from the [place] cecilactemeliar's instructions. Its performance characteri stics were determined by [facility] in a manner co nsistent with CLIA requirements. This test has not bee n cleared or approved by the U.S. Food and Drug Admin istration. Specimen Anatomical Collection Method Collection Time Receive d Time (Source) Location / / Volume Laterality Blood 01/26/2022 6:58 PM 2 CDT 11:30 AM CDT Darrick DanielS. LAB BLOOD ADD-ON Performing Organization Address City/[facility]/ZIP [facility] Phon e Number [facility] - [address] [place], [place] [address] [facility] [place] [address] [facility] [address] [facility] (ABNORMAL) Copper (01/26/2022 6:57 PM CDT) athologist Signature Copper, S 58 (L) 77 - 206 01/27/2022 SDSC mcg/dL 11:02 AM CDT Comment: ----ADDITIONAL INFORMATION---- This test was developed and its performa nce characteristics determined by [facility] in a manner consistent with CLIA requirements. This test has not been cleared or approved by the U.S. Meggan d and Drug Administration. Specimen Anatomical Collection Method Collection Time Receive d Time (Source) Location / / Volume Laterality Blood (Blood, 01/26/2022 6:57 PM 01/28/20 22 7:45 Venous) CDT AM CDT Darrick Santillan LAB BLOOD NON ADD-ON Performing Organization Address City/[facility] Phon e Number [facility] [address] [place] [address] [address] [place] [address] [place] Zinc (01/26/2022 6:57 PM CDT) athologist Signature Zinc, S 66 60 - 106 01/27/2022 SDSC mcg/dL 11:02 AM CDT Comment: ----ADDITIONAL INFORMATION---- This test was developed and its performa nce characteristics determined by [facility] in a manner consistent with CLIA requirements. [...] Address City/[facility]/ZIP Code Phon e Number [place] [id number] [place], [place] [address] [place] [address] [facility] [address] TA COVARRUBIAS ANE ENDOTRACHEAL AIRWAY (01/26/2022 3:51 PM CDT) Narrative Gildardo Hickey APRN, CRNA, DNAP - 3:51 PM CDT Gildardo Hickey APRN, CRNA, DNAP ? 01/26/2022 ??4:08 PM Airway Date/Time: 01/26/2022 3:51 PM Performed by: Gildardo Hickey APRN, CR NA, DNAP Authorized by: Gildardo Hickey APRN, C RNA DNAShanita Patient location during procedure: OR / Procedure [...] ?? Airway event: no complications Gildardo Hickey APRN, CRNA, DNAP ANESTHESIA ORDERABLES Upper GI endoscopy-Gastroenterology Image [...] Organization Address City/State/ZIP Code Phon [facility] Number [facility] Upper GI Endoscopy (01/26/2022 3:18 PM CDT) Specimen (Source) Anatomical Collection Method Collection Time Re ceived Time Location / / Volume Laterality 01/26/2022 3:18 PM CDT Impressions [facility] 01/26/[facility]22 10:50 PM CDT Post-op Diagnoses: ? - Large (> 5 mm) esophageal varic es with no bleeding and no stigmata of ? recent bleeding. Banded x 6. ? - Portal hypertensive gastropathy (non-bleeding). ? - No specimens collected. Narrative [facility]/26/[facility] 10:50 PM CDT Otto 6 [...] No immedia te complications. 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 pro cedure, including non-judd portions. Andreas Price MD 01/26/2022 10:50:15 PM This report has been signed electronical ly. Number of Addenda: 0 Huang Diamond M.D. GI PROCEDURE ORDERABLES Performing Organization Address City/State/ZIP Code Phon e Number [employer] NA [employer] Fresh Frozen Plasma :INR [...] City/State/ZIP Code Phon e Number [facility] - [address] [employer] Emergency Released Red Blood Cells (Uncrossmatched) (01/26/2022 9:59 AM CDT) Darrick Santillan BLOOD TRANSFUSION ORDERABLES Type and Screen (with reflex Antibody ID) (01/26/2022 4:48 AM CDT)Only the most recent of5 resultswithin the time period is included. [facility] gist Method Time Signature ABORh B Pos [...] 01/27/20 8:55 Venous) CDT AM CDT Darrick DanielSSuma LAB BLOOD BANK TEST ORDERABL ES Performing Organization Address [facility] Phon e Number [facility] [address] HIV-1/-2 Ag and Ab Screen, Plasma (01/25/2022 3:36 PM CDT) P athologist Signature HIV-1/-2 Ag Negative Negative 01/26/2022 [facility] and Ab Screen, 11:53 AM CDT P [...] 22 Venous) CDT 10:34 AM CDT Darrick DanielSSuma LAB MICROBIOLOGY - BLOOD ORD ERABLES Performing Organization Address City/[facility] Phon e Number [facility] [address] [place], [place] [address] [place], [place] [phone] [place], [place] [address] [place] Transfuse Red Blood Cells : (01/25/2022 1:08 PM CDT)Only the most recent of7 resultswithin the time period is included. Darrick DanielSSuma BLOOD TRANSFUSION ORDERABLES (ABNORMAL) AST (Aspartate Aminotransferase) (01/25/2022 9:56 AM CDT) Patholo gist Method Time Signature Aspartate 62 (H) 8 - 43 01/25/2022 DTL Aminotransferase U/L 10:32 AM CDT (AST), P Specimen Anatomical Collection Method Collection Time Receive d Time (Source) Location / / Volume Laterality Blood 01/25/2022 9:56 AM 9:56 CDT AM CDT Darrick DanielSSuma LAB BLOOD ADD-ON Performing Organization Address City/State/ZIP Code Phon e Number [facility] - [address] [place], [place] [address] (ABNORMAL) SPSMA Result (01/25/2022 5:35 AM CDT)Only the most recent of5 results within the time period is included. Analysis Performed At Patho logist Time Signature Neutrophilic Segs 74 50 - 75 % 01/25/2022 [facility] 7:03 AM CDT Lymphocytes 17 (L) 18 - 42 % 01/25/2022 [facility] 7:03 AM CDT Monocytes 3 2 - 11 % 01/25/2022 [facility] 7:03 AM CDT Eosinophils 5 (H) 1 - 3 % 01/25/2022 [facility] 7:03 AM CDT Basophils 1 0 - 2 % 01/25/2022 [facility] 7:03 AM CDT Manual Absolute 2.96 1.56 - 01/25/2022 [facility] Neutrophil Count 6.45 7:03 AM CDT [...] Reviewed by: Tech 01/25/2022 7:03 AM CDT [facility] Specimen Anatomical Collection Method Collection Time Receive d Time (Source) Location / / Volume Laterality Blood (Blood, 01/25/2022 5:35 AM 01/26/20 22 5:57 Venous) CDT AM CDT Darrick DanielS. LAB BLOOD ADD-ON Performing Organization Address City/State/ZIP Code Phon e Number [facility] - [address] [place] [address] 05 [place] [address] [facility] 200 [facility] LD (Lactate Dehydrogenase) (01/25/2022 5:35 AM CDT)Only the most recent of3 resultswithin the time period is included. [facility] LD 197 122 - 222 01/25/2022 DTL U/L 6:35 AM CDT Specimen Anatomical Collection Method Collection Time Receive d Time (Source) Location / / Volume Laterality Blood (Blood, 01/25/2022 5:35 AM 01/26/20 22 6:18 Venous) CDT AM CDT Darrick DanielSSuma LAB BLOOD NON ADD-ON Performing Organization Address City/State/ZIP Code Phon e Number [facility] - [address] [place], [place] [address] 05 [place], [place] [id number] [place] [address] (ABNORMAL) Haptoglobin (01/25/2022 5:35 AM CDT)Only the most recent of3 results within the time period is included. P athologist Signature Haptoglobin, S <14 (L) 30 - 200 01/26/2022 [facility] mg/dL 10:51 AM CDT Specimen Anatomical Collection Method Collection Time Receive d Time (Source) Location / / Volume Laterality Blood 01/25/2022 5:35 AM 6:58 CDT AM CDT Darrick Santillan LAB BLOOD ADD-ON Performing Organization Address City/[facility] Code Phon e Number [facility] [address] [place], [place] [address] [place] [id number] [place] [address] Dr. [place]AP[place] (ABNORMAL) Reticulocytes (01/25/2022 5:30 AM [...] City/State/ZIP Code Phon e Number [facility] - [address] [place], [place] [address] 05 [place], [place] [phone] [place] [address] [facility] Direct Antiglobulin Test (Poly) (01/25/2022 5:30 AM CDT)Only the most recent of2 resultswithin the time period is included. Patholo gist Method Time Signature Direct Negative Negative 01/25/2022 STR Antiglobulin 1:15 PM CDT Test, Polyspecific Specimen Anatomical Collection Method Collection Time Receive d Time (Source) Location / / Volume Laterality Blood (Blood, 01/25/2022 5:30 AM 01/26/20 Venous) CDT 11:46 AM CDT Darrick Santillan LAB BLOOD BANK TEST ORDERABL ES Performing Organization Address City/[facility] Phon e Number [facility] - [address] [place], [place] [address] [facility] [place] [address] [address] Magnesium (01/25/2022 5:30 AM CDT)Only the most recent of8 resultswithin the time period is included. athologist Signature Magnesium, S 1.9 1.7 - 2.3 01/25/2022 DTL mg/dL 5:21 PM CDT Specimen Anatomical Collection Method Collection Time Receive d Time (Source) Location / / Volume Laterality Blood (Blood, 01/25/2022 5:30 AM 01/26/20 5:06 Venous) CDT PM CDT Darrick Santillan LAB BLOOD ADD-ON Performing Organization Address City/[facility] Code Phon e Number [facility] - [address] [place], [place] [address] 05 [facility] [place] [place] [address] Laboratories-[address] Sodium, Random, Urine (01/24/2022 3:32 PM CDT) P athologist Signature Sodium, Random, <10 mmol/L 01/24/2022 [...] M.D. LAB URINE ORDERABLES Performing Organization Address City/[facility] Phon e Number [facility] - [address] Creatinine, Random, Urine (01/24/2022 3:32 PM CDT) athologist Signature Creatinine, 60 16 - 326 01/24/2022 DT Random, U mg/dL 4:50 PM CDT Specimen Anatomical Collection Method Collection Time Receive d Time (Source) Location / / Volume Laterality Urine (Urine, 01/24/2022 3:32 PM 01/25/20 22 3:59 Midstream) CDT PM CDT Yue Silver M.D. LAB URINE ORDERABLES Performing Organization Address [facility] Phon e Number [facility] - [address] (ABNORMAL) Bilirubin, Total (01/24/2022 1:35 PM [...] Santillan LAB BLOOD ADD-ON Performing Organization Address City/[facility]/ZIP [facility] Phon e Number [facility] - [address] (ABNORMAL) Bilirubin, Direct (01/24/2022 5:17 AM [...] Number [facility] - [address] [place], [place] [address] [facility] [place] [address] [facility] [address] Upper GI Endoscopy (01/23/2022 3:35 PM CDT) Specimen (Source) Anatomical Collection Method Collection Time Re ceived Time Location / / Volume Laterality 01/23/2022 3:35 PM CDT Impressions [facility] - 01/23/2022 4:08 PM CDT Post-op Diagnoses: [...] examination. ? - No specimens collected. Narrative [facility] - 01/23/2022 4:08 PM CDT Otto 6 GI GI Patient Name: Catia Carias Date of : 1990 Age: 31 Gender: Female Procedure Date: 01/23/2022 Procedure: ? Upper GI endoscopy Providers: ? Jesús Campa MD, Tanmay Parker MD ? (Elicia lopez) Referring Provider: ?Sree michael Pre-op Diagnoses: ?Cirrhosis, [...] M.D. GI PROCEDURE ORDERABLES Performing Organization Address City/[facility]/ZIP Code Phon e Number [facility] NA Protein, Total, Body Fluid (01/21/2022 10:00 [...] ical findings. All other fluids refer to [email or web address] for further inter pretive information. This test has been modified from the infantryman's instructions. Its perform ance characteristics were determined by [facility] in a manner consistent with CLIA require [...] [facility] - [address] [place], [place] [address] [facility] [place] [place] [address] [facility] [address] Bacterial Culture, Aerobic + Susc (01/21/2022 10:00 AM CDT)Only the most recent of4 resultswithin the time period is included. [facility] Method Time Signature Bacterial No growth 01/26/2022 DTL Culture, after 5 7:48 AM CDT Aerobic + Susc days of incubation. Specimen Anatomical Collection Method Collection Time Receive d Time (Source) Location / / Volume Laterality Fluid 01/21/2022 10:00 01/21/2022 (Peritoneal AM CDT 11:52 AM CDT Fluid) Comment: Specimen Source Site: Fluid Narrative [facility] - [facility] - 01/26/2022 7:48 AM CDT Bacterial Culture: Received Bactec aerob ic and Bactec anaerobic bottles Matthew Becerril M.D. LAB MICROBIOLOGY - GENERAL O RDERABLES Performing Organization Address City/State/ZIP Code Phon e Number [facility] - [address] [place] [address] 05 [facility] [place] [place] [address] [facility] 200 [facility] (ABNORMAL) Comprehensive Metabolic Panel (01/21/2022 7:25 AM [...] Number [facility] - [address] [place], [place] [address] [facility] [place] [place] [address] [facility] 200 [address] [facility] (ABNORMAL) Iron and Total Iron-Binding Capacity (01/21/2022 [...] LAB BLOOD ADD-ON Performing Organization Address City/[facility] Phon e Number [facility] - [address] (ABNORMAL) Ferritin (01/21/2022 7:21 AM CDT) athologist Signature Ferritin, S 564 (H) 11 - 307 01/22/2022 DTL mcg/L 5:18 PM CDT Specimen Anatomical Collection Method Collection Time Receive d Time (Source) Location / / Volume Laterality Blood (Blood, 01/21/2022 7:21 AM 01/23/20 4:23 Venous) CDT PM CDT Sree Little M.D. LAB BLOOD ADD-ON Performing Organization Address [facility] Phon e Number [facility] - 200 [place] [address] 05 [place] [address] Lipase (01/21/2022 2:40 AM CDT)Only the most recent of4 resultswithin the time period is included. athologist Signature Lipase, S 26 13 - 60 U/L 01/21/2022 3:23 DTL AM CDT Specimen Anatomical Collection Method Collection Time Receive d Time (Source) Location / / Volume Laterality Blood (Blood, 01/21/2022 2:40 AM 01/22/20 22 3:05 Venous) CDT AM CDT Cody Knight M.D. LAB BLOOD ADD-ON Performing Organization Address City/[facility]/ZIP Code Phon e Number [facility] - 200 [place], [place] [address] 05 [place], [place] [phone] [place] [address] Microscopic Automated (01/20/2022 8:57 PM CDT)Only the [...] M.D. LAB URINE ORDERABLES Performing Organization Address City/[facility]/ZIP Code Phon e Number [facility] - [address] [place], [place] [address] 05 [facility] [place] [place] [address] Laboratories-[address] Bacterial Culture, Aerobic + Susc, Urine (01/20/2022 8:57 PM CDT)Only the most recent of5 resultswithin the time period is included. Patholo gist Method Time Signature Urine Culture No growth 01/22/2022 DT after 1 day 6:31 AM CDT of incubation. Specimen Anatomical Collection Method Collection Time Receive d Time (Source) Location / / Volume Laterality Urine (Urine, 01/20/2022 8:57 PM 01/21/20 Straight CDT 10:31 PM CDT Catheter) Comment: Specimen Source Site: Urine Coyd Knight M.D. LAB MICROBIOLOGY - GENERAL O RDERABLES Performing Organization Address City/[facility]/ZIP Code Phon e Number [facility] - [address] [place], [place] [address] [facility] [place] [place] [address] Laboratories-[address] pH, Urine (01/20/2022 8:57 PM CDT)Only the most recent of2 resultswithin the time period is included. P athologist Signature pH, U 5.5 4.5 - 8.0 01/20/2022 9:48 DTL PM CDT Specimen Anatomical Collection Method Collection Time Receive d Time (Source) Location / / Volume Laterality Urine 01/20/2022 8:57 PM 9:23 CDT PM CDT Cody Knight M.D. LAB URINE ORDERABLES Performing Organization Address City/[facility]/ZIP Code Phon e Number [address] Osmolality, Urine (01/20/2022 8:57 PM CDT)Only the most recent of2 resultswithin the time period is included. athologist Signature Osmolality, U 401 150 - 1150 01/20/2022 DTL mOsm/kg 9:48 PM CDT Specimen Anatomical Collection Method Collection Time Receive d Time (Source) Location / / Volume Laterality Urine 01/20/2022 8:57 PM 9:23 CDT PM CDT Cody Knight M.D. LAB URINE ORDERABLES Performing Organization Address [facility] Phon e Number [phone] [place] [address] hCG (Human Chorionic Gonadotropin), Quantitative, (01/20/2022 8:49 PM CDT)Only the most recent of5 resultswithin the time period is included. athologist Signature HCG, 0.5 <5 IU/L [facility]20/2022 [facility], 9:19 PM CDT , P Specimen Anatomical Collection Method Collection Time Receive d Time (Source) Location / / Volume Laterality Blood (Blood, 01/20/2022 8:49 PM 01/21/20 9:01 Venous) CDT PM CDT Cody Knight M.D. LAB BLOOD ADD-ON Performing Organization Address City/[facility] Phon e Number [address] Drug Screen Urine (01/10/2022 1:46 PM [...] Phon e Number [facility] - [address] [place] [address] 559 05 [facility] [place] [address] [facility] [address] US Liver with Liver [...] amount of ascites persists following paracentesis. Cornelia Jurdao M.D. IMG US PROCEDURES Lactate Dehydrogenase (LD), Body Fluid (01/10/2022 9:51 AM CDT) [facility] Method Time Signature Lactate 41 See [...] clinical findings. All other fluids refer to www.[email or web address] for further interpretive information. This test has been modified from the man ufacturer's instructions. Its performance characteristics were det ermined by [facility] in a manner consistent with CLIA requirements [...] e Number [facility] - 200 [place], [place] [address] 05 [facility] [place] [place] [address] [facility] 200 [address] [facility] Glucose, Body Fluid (01/10/2022 9:51 AM [...] of infection. All other fluids refer to [email or web address] for further inter pretive information. This test has been modified from the [facility] health gerber hospitalacturer's instructions. Its performance characteri stics were determined by [facility] in a manner co nsistent with CLIA [...] Phon e Number [facility] - [address] [place] [address] 05 [facility] [place] [place] [address] [facility] 200 [facility] Amylase, Body Fluid (01/10/2022 9:51 AM CDT) P athologist Signature Amylase, BF 6 See Comment [...] atio <1.0. All other fluids refer to [email or web address] for further inter pretive information. This test has been modified from the [place] Yoviaacturer's instructions. Its performance characteri stics were determined by [facility] in a manner consistent wi CLIA requirements. [...] STOOLS O JOSE Performing Organization Address City/[facility] Phon e Number [facility] - [address] [place], [place] [address] 05 [facility] [place] [place] [address] [facility] 200 [address] [facility] Albumin, Body Fluid (01/10/2022 9:51 AM CDT)Only [...] process. ?? All other fluids refer to [email or web address].com for further interpretive information. This t est has been modified from the infantryman's instruc tions. Its performance characteristics were determi foreign by [facility] in a manner consistent with CLIA require [...] AND STOOLS Marylou GARCIA Performing Organization Address City/[facility] Code Phon e Number [facility] - [address] [place], [place] [address] 05 [facility] [place] [place] [address] [facility] 200 [facility] DX Chest Portable 1 View (01/09/2022 4:34 [...] size and pulmonary vascularity. Cornelia Jurado M.D. IMTristan DIAGNOSTIC IMAGING PROCE DURES SARS Coronavirus 2, RNA, Rapid POC, V Asymptomatic (01/09/2022 1:45 PM CDT) [facility] Method Time Signature SARS Undetected Undetected 01/09/2022 DTLR Coronavirus-2 2:05 PM CDT , RNA, Rapid POC, V Comment: Negative for SARS-CoV-2. The RedT COVID-19 test is a molecular jonathan t for SARS-CoV-2, the virus that causes COVID- 19. A Negative result means that the [facility]T COV ID-19 test did not detect SARS-CoV-2 virus in your sample. RedT COVID-19 test uses the [employer] Central System. This test has received Emergency Use Authorization (EUA) by the U.S. Food and Drug Administration (FDA) and is used per man ufacturer instructions. Performance characteristic s were verified by [facility] in a manner consistent with CLIA requirements. Fact sheets for this Emerg ency Use Authorization (EUA) can be found at the following links: Providers: https://[employer] [facility].com/documentation/prov iders.pdf Patients: https://[employer] [facility].com/documentation/deshawn ents.pdf SARS Coronavirus 2, Source Nasopharynx DEFAULT 01/09/2022 2:05 PM CDT DTLR Specimen Anatomical Collection Method Collection Time Receive d Time (Source) Location / / Volume Laterality Varies 01/09/2022 1:45 PM 1:45 (Nasopharynx) CDT PM CDT Reese Reyes M.D. LAB MICROBIOLOGY - GENERAL O RDERABLES Performing Organization Address City/[facility]/ZIP Code Phon e Number PERFORMING LABS, REF [place] Performing [place] [address] INTERFACE Ref Interface 200 [facility] DTLR Performing Labs, [place] [address] Interface 200 [facility] Glucose, POCT (01/09/2022 10:04 AM CDT)Only the [...] P.A.-C. LAB POCT ORDERABLES-MANUAL Performing Organization Address City/[facility]/ZIP Code Phon e Number [facility] - [address] [place], [place] [address] 05 [facility] [place] [place] [address] [facility] 200 [address] [facility] Paracentesis (12/21/2021 2:48 PM CDT) Narrative Divina [...] (THC) Confirmation, Urine (12/15/2021 5:58 PM CDT) [facility] Method Time Signature Carboxy-THC- by 19 Cutoff: 12/18/2021 [facility] GC/MS 3.0 ng/mL 6:38 AM CDT Carboxy-THC Positive. 12/18/2021 [facility] Interpretation 6:38 AM CDT Comment: ----ADDITIONAL INFORMATION---- This report is intended for use in clini ada monitoring and management of patients. ??It is not intended for use i n employment-related testing. This test was developed and its performa nce characteristics determined by [facility] in a manner consistent with CLIA requirements. [...] City/State/ZIP Code Phon e Number [facility] [address] [place], [place] [address] [place], [place] [address]t. [place] [address] Laboratory Medicine and Pathology [address] [place] (ABNORMAL) Drug Abuse Survey with Confirmation, Urine (12/15/2021 5:58 PM CDT) [facility] Method Time Signature Alcohol Negative Cutoff: [...] Ph.D. LAB URINE ORDERABLES Performing Organization Address [facility] Phon e Number [facility] [address] [place] [phone] [address] [facility] [place] [address] Laboratory Medicine and Pathology [address] [place] [address] Dr. [place] Ethyl Glucuronide Confirmation, Random, Urine (12/15/2021 5:51 PM CDT) Patholo gist Method Time Signature Ethyl Glucuronide Negative Cutoff: 12/17/2021 [facility] Confirmation, U 250 ng/mL 10:34 AM CDT Ethyl Sulfate Negative Cutoff: 12/17/2021 [facility] ng/mL 10:34 AM CDT Ethyl Gluc/Sulfate Negative. 12/17/2021 [facility] Interpretation 10:34 AM CDT Comment: ----ADDITIONAL INFORMATION---- This report is intended for use in clini ada monitoring and management of patients. ??It is not intended for use i n employment-related testing. This test was developed and its performa nce characteristics determined by [facility] in a manner consistent with CLIA requirements. This test has not been cleared or approved by the U.S. Meg[place] d and Drug Administration. Specimen Anatomical Collection Method Collection Time Receive d Time (Source) Location / / Volume Laterality Urine (Urine, 12/15/2021 5:51 PM 12/16/19 9:55 Midstream) CDT PM CDT Adeline Frazier M.D., Ph.D. LAB URINE ORDERABLES Performing Organization Address [facility] Phon e Number [address] [place] [address] 05 [facility] [place] [address] Laboratory Medicine and Pathology [address] [place] [address] Dr. [place]AP[place]LL Phosphatidylethanol (Peth), whole blood- Sent Out Lab (12/15/2021 5:39 PM CDT) Component Value Ref Range Test Analysis Performed Pathologis t Method Time At Signature Phosphatidylethanol NEGATIVE NEGATIVE 12/26/2021 MTI (PEth) ng/mL 1:01 PM CDT Comment: Analyzed compound: PEth 16:0/18:1. ? 5-qoasrrpgi-1-[id number]-dq-jeyadmp-3 -phosphoethanol. ? Analysis performed by Liquid Chromat[employer] [...] and its performa nce characteristics determined by [employer]. It has not been c leared or approved by the Food and Drug Administration. Specimen Anatomical Collection Method Collection Time Receive d Time (Source) Location / / Volume Laterality Blood (Blood, 12/15/2021 5:39 PM 12/17/19 8:26 Venous) CDT AM CDT Adeline Frazier M.D., Ph.D. LAB BLOOD NON ADD-ON Performing Organization Address City/State/ZIP Code Phon e Number [employer]. [address] [place] [address] 2 [employer], AgentPiggy. [place], [place] [phone] [place] [address] Paracentesis (12/04/2021 9:57 AM CDT) Narrative Blanquita [...] e Number [facility] - 200 [place], [place] [address] 05 [place] [address] [facility] [address] (ABNORMAL) Blood Gas with Coox, Venous (12/04/2021 7:30 AM CDT) [facility] gist Method Time Signature Venous pO2 36 [...] Number [facility] - [address] [place], [place] [address] [place] [address] [facility] [address] [facility] Phosphorus Inorganic (11/25/2021 6:55 AM CDT)Only the most recent of6 results within the time period is included. [...] Number [facility] - [address] [place], [place] [address] [facility] [place] [place] [address] [facility] [address] SW DX Abdomen Portable [...] IMG DIAGNOSTIC IMAGING PROCE DURES Pernicious Anemia [place] (11/21/2021 11:25 AM CDT) athologist Signature Vitamin B12 621 180 - 914 11/21/2021 SDSC Assay, S ng/L 6:21 PM CDT Specimen Anatomical Collection Method Collection Time Receive d Time (Source) Location / / Volume Laterality Blood (Blood, 11/21/2021 11:25 11/21/2021 4:05 Venous) AM CDT PM CDT Dina Campa M.D. LAB BLOOD NON ADD-ON Performing Organization Address City/[facility]/ZIP Code Phon e Number [facility] [address] [place], [place] [address] [facility] [place] [address] Laboratory Medicine and Pathology [address] [place] [address] Dr. CHAPPELL Copper, 24 Hour, Urine (11/21/2021 11:00 AM CDT) athologist Signature Copper, 24 Hr, U 19 9 - 71 11/24/2021 [facility] mcg/24 h 10:42 AM CDT Collection 24 h 11/24/2021 [facility] Duration 10:42 AM CDT Volume 815 mL 11/24/2021 [facility] 10:42 AM CDT Comment: ----ADDITIONAL INFORMATION---- This test was developed and its performa nce characteristics determined by [facility] in a manner consistent with CLIA requirements. [...] Organization Address City/State/ZIP Code Phon e Number [address] [place], [place] [address] [facility] [place] [address] Laboratory Medicine and Pathology [address] [place] [address] Dr. CHAPPELL (ABNORMAL) Ceruloplasmin (11/20/2021 6:38 AM [...] at or the on-line test catalog at [employer] for m ore information. Specimen Anatomical Collection Method Collection Time Receive d Time (Source) Location / / Volume Laterality Blood (Blood, 11/20/2021 6:38 AM 11/21/19 22 8:33 Venous) CDT AM CDT Gerard Andino M.D., M.S. LAB BLOOD ADD-ON Performing Organization Address City/[facility] Phon e Number [facility] [address] Sedimentation Rate (11/19/2021 2:55 PM CDT) [...] LAB BLOOD ADD-ON Performing Organization Address City/[facility] Phon e Number [facility] - [address] CRP (C-Reactive Protein) (11/19/2021 2:55 PM CDT)Only the most recent of2 resultswithin [...] [facility] - [address] [place], [place] [address] [facility] [place] [address] Laboratories-[facility] [address] EEG prolonged (11/17/2021 [...] Phon e Number [facility] - [address] [place] [address] [facility] [place] [address] Laboratories-[facility] 200 [facility] SARS Coronavirus 2, Antigen, Rapid, V [...] us ing the SARS-CoV-2 Ag Test from [employer], which has received Emergency U se Authorization (EUA) by the U.S. Food and Drug Administration. Fact sheets for this Emergency Use Autho rization (EUA) assay can be found at the following links: For Healthcare Providers: https://www.[employer].com/assets/images/n ew/pdf/umy-zwh-cffg-nmklg-nijcdpmo-p tkn-cwm-6-ag-test.pdf?v=4 For Patients: https://www.[employer].com/assets/images/n ew/pdf/aty-wbpbhjy-ygoi-sheet-lumira kc-uhlw-iij-7-lmzyorh-pjzl.pdf?v=5 SARS CoV-2, Antigen, Rapid, Swab, Nasopharynx 10/31 9:54 AM CDT [facility] Source Specimen Anatomical Collection Method Collection Time Receive d Time (Source) Location / / Volume Laterality Varies 11/13/2021 9:45 AM 9:54 (Nasopharynx) CDT AM CDT Gerard Andino M.D., M.S. LAB MICROBIOLOGY - GENERAL O RDERABLES Performing Organization Address City/State/[facility] Code Phon e Number [facility] - 200 [place], [place] [address] [place] [address] Laboratories-[facility] [address] [facility] [address] Head without IV Contrast (11/12/2021 3:52 [...] HEAD WITHOUT IV CONTRAST COMPARISON: Compared to [facility] head CT fro m 03/21/2021. FINDINGS: [...] HEAD WITHOUT IV CONTRAST COMPARISON: Compared to [facility] head CT fro m 03/21/2021. FINDINGS: [...] Rapid, V Symptomatic (11/12/2021 3:44 AM CDT) [facility] Method Time Signature SARS CoV-2, Detected (A) Undetected 11/12/2021 [facility] PCR, Rapid, V 4:20 AM CDT Comment: ----ADDITIONAL INFORMATION---- This RT-PCR test was performed using the Daniel SARS-CoV-2 and Influenza A/B Reagent assay from [employer], which has received Emergency Use Authori zation(EUA) by the U.S. Food and Drug Administration . Fact sheets for this Emergency Use Autho rization (EUA) assay can be found at the following link s: For Healthcare Providers: https://www.fda.gov/media/694470/downloa d For Patients: https://www.fda.gov/media/292709/downloa d SARS Coronavirus 2, Source, Rapid Swab, Nasopharynx 11/12/2021 3:48 AM CDT [facility] Specimen Anatomical Collection Method Collection Time Receive d Time (Source) Location / / Volume Laterality Varies 11/12/2021 3:44 AM 3:48 (Nasopharynx) CDT AM CDT Rosaura Sevilla M.D., M.P.H. LAB MICROBIOLOGY - GENERA L ORDERABLES Performing Organization Address City/State/ZIP Code Phon e Number [facility] - 200 [place], [place] [address] [facility] [place] [address] Laboratories-[facility] 200 [facility] Peripheral Venous Access (11/12/2021 1:58 AM CDT) [...] Address City/[facility]/ZIP Code Phon e Number [facility] - [address] [place], [place] [address] [facility] [place] [address] Laboratories-[facility] 200 [address] [facility] Venous Blood Gas and Electrolytes, POCT (11/12/2021 [...] POCT ORDERABLES - DEVICE Performing Organization Address City/[facility] Phon e Number [facility] - [address] [place], [place] [address] [facility] [place] [place] [address] [facility] 200 [facility] (ABNORMAL) APTT (Activated Partial Thromboplastin Time) [...] LAB BLOOD ADD-ON Performing Organization Address City/[facility] Code Phon e Number [facility] - [address] [place], [place] [address] [facility] [place] [address] [facility]-[address] S-TSH (Thyroid-Stimulating Hormone - Sensitive) (11/12/2021 [...] [facility] - [address] [place], [place] [address] [facility] [place] [address] Laboratories-[facility] [address] from Last 3 Months Insurance Payer Benefit Plan / Subscriber ID Effective Phone Address T ype Group Dates [facility] [id number] 2018-Prese [address] [address] Medicaid HMO BLUE SHIELD RESTRICTED PLAN nt [facility] [id number] [place] [phone] Advance Directives For more information, please contact: [phone] Latest Code Status on File Code Status [...] Due to: Not medically appropriate Care Teams Solar Project Coordination Specialist Relationship Specialty Start Date End Date Ana Red P.A.-C. PCP - General Internal Medicine 12/01/[address] [place] [address] Av [place] [phone] [facility]- [facility] 08/25/21 Ervin Schroeder MD Referring Provider Family Medicine 03/24/[address] [place] [address] [place] [address]
--- OUTSIDE RECORDS SUMMARY | 2022-02-10 09:25 | XMS_ITS | Encounter Summary ---
:1990 Author Organization [facility] Address [address] [place] [address] Care Team Providers Name Role Phone Ana Red P.A.-C. Primary Care Provider [phone] Reason for Visit Reason Comments EGD scheduled for 02/10 Encounter Details Date Type Department Care Team Description 02/09/2022 Clinical Department of Alyssa Arana EGD scheduled for Communication Anesthesiology in S, R.N. 02/10 [place], [place] 1025 [facility] 1025 [place] [phone] Social History Tobacco Use Types Packs/Day Years [...] How often do you attend muslim or Patient refused 2021 congregational services? 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 - 02/09/2022 8:41 AM CDT Anuj Jerome Christelle is scheduled for an EGD with you tomorrow based on the order placed 12/10 for varices screening. She states she had an EGD in [place] and 6 varices were banded during that procedure (unable to seedocumentation of that procedure, however there is a note from anesthesia dated 01/26 that she did have an EGD on that date). Pt was contacted by this publications writer to go thru preadmission questions and pt is asking if this EGD is needed since she already had it in [place]. Would you like her to have anotherEGD as scheduled tomorrow? Please advise and I can call the patient back. Thank you Alyssa RN Preoperative Professor Criminal Justice documented in this encounter Plan of Treatment Upcoming Encounters Date Type Specialty Care Team Description Virtual Visit Transplant Matthew Jerome M .B.B.S., Lilian 1025 [place] [address] 2 Rain Reyes R.N. [address] [place] [phone] Telemedicine Transplant LinaFederico 2 Brigid noyola M.D. [address] [place] [phone] Office Visit [facility] Internal [facility], 2 Medicine Vernell Perez [address] [place] [phone] Lab Laboratory Medicine Karin, 2 Adeline Gannon M.D., Ph.D. [address] [place] [phone] Lab Laboratory Medicine Olinda Frazier M.D., Ph.D. [address] [place] [phone] Office Visit Transplant Olinda Frazier M.D., Ph.D. [address] [place] [phone] Office Visit Family Medicine Robbin Maria 2, M.D. 300 [facility] [place] [phone] Appointment Radiology Matthew Jerome 2 YVikBGraeme, Lilian [address] [place] [phone] Appointment Gastroenterology and Adrianne 2 Hepatology Yue Burciaga M.D. [address] [place] [phone] Office Visit Gastroenterology and Matthew Jerome 2 Hepatology Joshua RodriguezBSumaBLilian Bedolla [address] [place] [phone] Appointment Radiology Matthew Jerome 2 YJoshuaB.B.Lilian [place] [address] [place] [phone] Hospital Gastroenterology and Matthew Jerome Cirrhos is Alcoholic (HCC) 2 Encounter Hepatology Joshua RodriguezBSumaBLilian Bedolla [address] [place] [phone] Anesthesia Event Gastroenterology and Rl 2 Hepatology Ervin Burgos M.D. 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 PCP - General Internal Medicine 12/01/[address] [place] [phone] [facility] [place] lab 08/25/21 Ervin Schroeder MD Referring Provider Family Medicine 03/24/[address] [place] [phone] documented as of this encounter
--- OUTSIDE RECORDS SUMMARY | 2022-02-10 09:25 | XMS_ITS | Encounter Summary ---
:1990 Author Organization [facility] Address [address] [place] [address] Care Team Providers Name Role Phone Ana Red P.A.-C. Primary Care Provider [phone] Encounter Details Date Type Department Care Team Description 02/10/2022 Documentation Division of Gastroenterology Elizabeth Bella, in [facility] M.B.B.S. [address] [facility] [address] [place] [address] [place], [place] [phone] Social History Tobacco Use Types Packs/Day Years [...] How often do you attend shinto or Patient refused 2021 baptism services? 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 She also reported leg weakness. She was tearful during the conversation. She denied fevers, chills but did endorse abdominal distension and feels she is due for another paracentesis. Considering she has new neurological symptoms, although unlikely a cord pathology is possible. She needs to be examined in an ER and possible have imaging. She appreciated the advice. documented in this encounter Plan of Treatment Upcoming Encounters Date Type Specialty Care Team Description Virtual Visit Transplant Matthew Jerome M .B.B.S., MJules 1025 [place] [phone] 2 Rain Reyes R.N. [address] [place] [phone] Telemedicine Transplant Kristophercentinela [facility] campusDemarcus 2 Brigid noyola M.D. [address] [place] [phone] Office Visit Community Internal [facility], 2 Medicine Vernell Perez 300 [place] [address] Lab Laboratory Medicine Karin, 2 Adeline Gannon M.D., Ph.D. [address] [place] [phone] Lab Laboratory Medicine Karin, 2 Adeline Gannon M.D., Ph.D. [address] [place] [phone] Office Visit Transplant Karin, 2 Adeline Gannon M.D., Ph.D. [address] [place] [phone] Office Visit Family Medicine Robbin Maria 2, M.D. 300 [place] [phone] Appointment Radiology Matthew Jerome 2, M.B.B.S., MCee. [address] [place] [phone] Appointment Gastroenterology and Adrianne, 2 Hepatology Yue Burciaga M.D. [address] [place] [address] Office Visit Gastroenterology and Matthew Jerome 2 Hepatology Tyrell Rodriguez M.D. [address] [place] [phone] Appointment Radiology Matthew Jerome 2 Tyrell Rodriguez M.D. [address] [place] [phone] [facility] Gastroenterology and Matthew Jerome Cirrhos is Alcoholic (HCC) 2 Encounter Hepatology Tyrell Rodriguez M.D. [address] [place] [phone] Anesthesia Event Gastroenterology and Rl 2 Hepatology Ervin Burgos M.D. [address] [place] [phone] Surgery Gastroenterology and Matthew Jerome ESOPHAG OGASTRODUODENOSCOPY 2 Hepatology Tyrell Rodriguez M.D. [address] [place] [phone] Scheduled Procedures Name Priority Associated Diagnoses Date/Time ESOPHAGOGASTRODUODENOSCOPY Cirrhosis Alc oholic (HCC) 03/20/2022 8:[address]SULTANT Hypertension Portal (HCC) documented as of this encounter Visit Diagnoses Not on filedocumented in this encounter Additional Health Concerns Assessment Noted Time PHQ-9 Depression Total Score: 10 10/06/2021 5:00 PM CD T documented as of this encounter Care Teams Septic Tank Cleaner Relationship Specialty Start Date End Date Ana Red P.A.-C. PCP - General Internal Medicine 12/01/[address] [place] [phone] [facility]- [place] lab 08/25/21 Ervin Schroeder MD Referring Provider Family Medicine 03/24/[address] [place] [address] documented as of this encounter
--- OUTSIDE RECORDS SUMMARY | 2022-02-10 09:25 | XMS_ITS | Encounter Summary ---
:1990 Author Organization [facility] Address [address] [place] [address] Care Team Providers Name Role Phone Ana Red P.A.-C. Primary Care Provider [phone] Reason for Visit Reason Comments Post Hospital Follow-up Encounter Details Date Type Department Care Team Description 02/10/2022 Clinical Communication Department of [facility] Internal Myrtle Govea Follow-up Medicine in [address] [phone] [facility] [place] [phone] (Work) [phone] Social History Tobacco Use Types Packs/Day Years [...] How often do you attend presybeterian or Patient refused 2021 jainism services? 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 - 02/10/2022 7:42 AM CDT Catia Carias is not eligible for the Adult Medical Care Coordination Program and needs the PHFU call to be completed. Patient was dismissed from the [facility] on 02/09/22 at 1652. [facility] Exclusion Criteria: Evaluating for Liver Transplant Pt has PHFU appts on 02/11/22 and 02/13/22- clarify which appointment patient will attend documented in this encounter Plan of Treatment Upcoming Encounters Date Type Specialty Care Team Description Virtual Visit Transplant Matthew Jerome M .B.B.S., Lilian 1025 [place] [address] 2 Rain Reyes R.N. [address] [place] [phone] [facility] 2 Brigid noyola M.D. [address] [place] [phone] Office Visit Community Internal [facility], 2 Medicine Vernell Perez 300 [place] [address] Lab Laboratory Medicine Karin, 2 Adeline Gannon M.D., Ph.D. [address] [place] [phone] Lab Laboratory Medicine Karin, 2 Adeline Gannon M.D., Ph.D. [address] [place] [phone] Office Visit Transplant Karin, 2 Adeline Gannon M.D., Ph.D. [address] [place] [phone] Office Visit Family Medicine Robbin Maria 2, M.D. 300 [place] [phone] Appointment Radiology Matthew Jerome 2, M.B.B.S., JoshuaD. [address] [place] [phone] Appointment Gastroenterology and Adrianne, 2 Hepatology Yue Burciaga M.D. [address] [place] [phone] Office Visit Gastroenterology and Matthew Jerome 2 Hepatology Tyrell Rodriguez M.D. [address] [place] [phone] Appointment Radiology Matthew Jerome 2 Tyrell Rodriguez M.D. [address] [place] [phone] [facility] Gastroenterology and Matthew Jerome Cirrhos is Alcoholic (HCC) 2 Encounter Hepatology Tyrell Rodriguez M.D. [address] [place] [phone] Anesthesia Event Gastroenterology and Rl, 2 Hepatology Ervin Burgos M.D. [address] [place] [phone] Surgery Gastroenterology and Matthew Jerome ESOPHAG OGASTRODUODENOSCOPY 2 Hepatology Tyrell Rodriguez M.D. 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 PCP - General Internal Medicine 12/01/[address] [place] [phone] [facility] [place] lab 08/25/21 Ervin Schroeder MD Referring Provider Family Medicine 03/24/[address] [place] [address] documented as of this encounter
--- OUTSIDE RECORDS SUMMARY | 2022-02-10 09:25 | XMS_ITS | Encounter Summary ---
:1990 Author Organization [facility] Address [address] [place] [address] Care Team Providers Name Role Phone Ana Red P.A.-C. Primary Care Provider [phone] Reason for Referral Outpatient (Routine) - Authorized Specialty Diagnoses / Procedures Referred By Contact Refer red To Contact Diagnoses Alcoholic Cirrhosis Of Liver With Ascites (HCC) Sara Gracia M.D. [address] [place] [address] Referral ID Status Reason Start Date Expiration Date Visits V isits Requested Authorized [id number] Authorized 02/06/2022 02/06/2023 1 1 Outpatient (Routine) - Authorized Specialty Diagnoses / Procedures Referred By Contact Refer red To Contact Diagnoses Chronic Pain Syndrome Hypertension Portal (HCC) Hepatic Failure Unspecified Without Coma (HCC) Alcoholic Cirrhosis Of Liver With Ascites (HCC) Sara Gracia M.D. [address] [place] [address] Referral ID Status Reason Start Date Expiration Date Visits V isits Requested Authorized [id number] Authorized 02/06/2022 02/06/2023 1 1 Outpatient (Routine) - Closed Specialty Diagnoses / Procedures Referred By Contact Refer red To Contact Diagnoses Ascites Chronic Matthew Jerome M.B.B.S., [facility] Procedures US Paracentesis with Imaging Guidance M.DSuma [address] [place] [phone] Referral ID Status Reason Start Date Expiration Date Visits Requ ested Visits Authorized [id number] Closed 11/19/2021 11/19/2022 1 1 Reason for Visit Auth/Cert Specialty Diagnoses / Procedures Referred By Contact Refer red To Contact Diagnoses Ascites Chronic Procedures US PARACENTESIS WITH IMAGING GUIDANCE Hosp OP Referral ID Status Reason Start Date Expiration Date Visits Requ ested Visits Authorized [id number] 1 1 Encounter Details Date Type Department Care Team Description 02/05/2022 Hospital Encounter Department of Matthew Jerome, Chroni c Pain Syndrome (Primary Dx); Radiology, Joshua Reyes Ascites Chronic; Building, in [address] [facility] Hypertension Portal (HCC); [place], [place] Hepatic Failure Unspecified Without Coma (HCC); [address] [address] Alcoholic Cirrhosis Of Liver With Ascite s (HCC) [place], [place] [phone] (Work) [phone] Social History Tobacco Use Types Packs/Day Years [...] How often do you attend episcopal or Patient refused 2021 caodaism services? 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 Apply to painful area on skin. folic acid 1 mg tablet TAKE 1 TABLET BY 90 tablet 3 022 MOUTH DAILY furosemide (LASIX) 20 mg Take 2 tablets [...] Coma (HCC) spironolactone Take 2 tablets (100 60 tablet [...] with breakfast. documented as of this encounter Plan of Treatment Upcoming Encounters Date Type Specialty Care Team Description Virtual Visit Transplant Matthew Jerome M .B.B.S., MJules [address] [place] [address] 2 Rain Reyes R.N. [address] [place] [phone] Telemedicine Transplant LinaFederico 2 Brigid noyola M.D. [address] [place] [phone] Office Visit Community Internal Neda, 2 Solitario Perez P.A.-C. [address] [place] [phone] Lab Laboratory Medicine Karin, 2 Adeline Gannon M.D., Ph.D. [address] [place] [phone] Lab Laboratory Medicine Karin, 2 Adeline Gannon M.D., Ph.D. [address] [place] [phone] Office Visit Transplant Karin, 2 Adeline Gannon M.D., Ph.D. [address] [place] [phone] Office Visit Family Medicine Robbin Maria 2, M.D. [address] [place] [phone] Appointment Radiology Matthew Jerome 2 YJoshuaBSumaBLilian Bedolla [address] [place] [phone] Appointment Gastroenterology and Adrianne, 2 Hepatology Yue Burciaga M.D. [address] [place] [phone] Office Visit Gastroenterology and Matthew Jerome 2 Hepatology Joshua RodriguezBSumaBLilian Bedolla [address] [place] [phone] Appointment Radiology Matthew Jerome 2 Joshua RodriguezB.BLilian Bedolla [address] [place] [phone] Hospital Gastroenterology and Matthew Jerome Cirrhos is Alcoholic (HCC) 2 Encounter Hepatology Vik RodriguezBLilian Bedolla [address] [place] [phone] Anesthesia Event Gastroenterology and Rl, 2 Hepatology Ervin Burgos M.D. [address] [place] [phone] Surgery Gastroenterology and Mousa, Matthew ESOPHAG OGASTRODUODENOSCOPY 2 Hepatology Tyrell Rodriguez M.D. [address] [place] [phone] Scheduled Procedures Name Priority Associated Diagnoses Date/Time ESOPHAGOGASTRODUODENOSCOPY Cirrhosis Alc oholic (HCC) 03/20/2022 8:45 AM CIRCUS ARTIST Hypertension Portal (HCC) Scheduled Referrals Name Type Priority Associated Diagnoses Order S chedule Non-[facility] Outpatient Referral Routine Chronic Pain Syndrome Ordered: Health referral Hypertension Portal 02/06 (HCC) Hepatic Failure Unspecified Without Coma (HCC) Alcoholic Cirrhosis Of Liver With Ascites (HCC) Non-[facility] Outpatient Referral Routine Alcoholic Cirrhosis Ordered: Health referral Of Liver With Ascites 10/2021 (HCC) documented as of this encounter Procedures Procedure Name Priority Date/Time Associated Comments Diagnosis US PARACENTESIS RAD - Routine 02/05/2022 3:53 Ascites Chronic Resul ts for this WITH IMAGING (most inpatients PM CDT procedure a re in GUIDANCE and all the results outpatients) section. CELL COUNT AND Timed 02/05/2022 3:17 Ascites Chronic Results for this DIFFERENTIAL, BF PM CDT procedure a re in the results section. GRAM STAIN Timed 02/05/2022 3:17 Ascites Chronic Results f or this PM CDT procedure are i n the results section. documented in this encounter Results US Paracentesis with Imaging Guidance (02/05/2022 3:53 PM CDT) Anatomical Region Laterality Modality Abdomen, [...] EP Matthew Santillan M.D. IMG US PROCEDURES Gram Stain (02/05/2022 3:17 PM CDT) [facility] Method Time Signature Gram Stain No organisms seen. 02/05/2022 DTL White blood cells present. 9:10 PM CDT Specimen Anatomical Collection Method Collection Time Receive d Time (Source) Location / / Volume Laterality Fluid 02/05/2022 3:17 PM 4:39 (Peritoneal CDT PM CDT Fluid) Comment: Specimen Source Site: Fluid Matthew Santillan M.D. LAB MICROBIOLOGY - GENERAL ORDERABLES Performing Organization Address City/State/ZIP Code Phon e Number [facility] - [address] [place] [phone] [facility] [place] [address] Laboratories-[address] Cell Count and Differential, Body Fluid (02/05/2022 3:17 PM CDT) [facility] Method Time Signature Fluid Type Peritoneal- [...] characteri stics were determined by [facility] in a manner co nsistent with CLIA requirements. This test has not bee n cleared or approved by the U.S. Food and Drug Admin istration. Lymphocytes 78 Synovial <75% % 02/05/2022 7:00 PM CDT [facility] Monocytes/Macrophages 21 Synovial <70% % 02/05/2022 7 :00 PM CDT [facility] Other Cells 1 % 02/05/2022 7:00 PM CDT [facility] Comment: ----REFERENCE VALUE---- The reference range and other method performance specifications have not been established for this bodyfluid. The test result must be integrated into the clinical context for interpretation. Other Cells Are: Mesothelial cells 02/05/2022 8:38 PM CDT [facility] Comment No blasts or malignant cells seen. 02/05 8:38 PM CDT [facility] Reviewed by: Ruth 02/05/2022 8:38 PM CDT [facility] Specimen Anatomical Collection Method Collection Time Receive d Time (Source) Location / / Volume Laterality Fluid 02/05/2022 3:17 PM 3:54 (Peritoneal CDT PM CDT Fluid) Matthew Santillan M.D. LAB BODY FLUIDS AND STOOLS ORDERABLES Performing Organization Address City/State/ZIP Code Phon e Number [facility] - [address] [place], [place] [address] [place] [address] Laboratories-[facility] [address] documented in this encounter Visit Diagnoses Diagnosis Cirrhosis Alcoholic (HCC) Chronic Pain Syndrome - Primary Ascites Chronic Hypertension Portal (HCC) Hepatic Failure Unspecified Without Coma (HCC) Alcoholic Cirrhosis Of Liver With Ascite s (HCC) Cirrhosis Alcoholic (HCC) Hypertension Portal (HCC) documented in this encounter Administered Medications Inactive Administered Medications - up to 3 most recent administrations Medication Order MAR Action Action Date Dose Rate Site albumin human 25 % injection 25 g New Bag 02/05/2022 4:13 PM CDT 25 g 25 g, intravenous, Once, On Luz Marina 02/05/22 at 1615, For 1 dose, If no infusion rate specified: Administer the 25% solution at 100 mL/hr lidocaine 10 mg/mL (1 %) injection (XYLO CURT) Given 02/05/2022 3:29 PM CDT 4 mL Code/trauma/sedation medication, Starting on Luz Marina 02/05/22 at 1529 documented in this encounter Active and Recently Administered Medications Times are shown in CDT. Scheduled Medication Order 02/03/2022 02/04/2022 02/05/2022 albumin human 25 % injection 25 g (COMPLETED) 1613 (New Bag - Provider: Sara Luciano R.N.)1637 (Stopped - Provider: Catia Portillo R.N.) 25 g, intravenous, Once, On Luz Marina 02/05/22 at 1615, For 1 dose, If no infusion rate specified: Administer the 25% solution at 100 mL/hr PRN Medication Order 02/03/2022 02/04/2022 02/05/2022 lidocaine 10 mg/mL (1 %) injection (XYLOCAINE) (CANCELED) 1529 (Given - Provider: Daniel Shah M.D. - Comment: abdomen) Code/trauma/sedation medication, Starting on Luz Marina 02/05/22 at 1529 documented in this encounter Additional Health Concerns Assessment Noted Time PHQ-9 Depression Total Score: 10 10/06/2021 5:00 PM CD T documented as of this encounter Care Teams Cardiovascular Sonographer Relationship Specialty Start Date End Date Ana Red P.A.-C. PCP - General Internal Medicine 12/01/[address] [place] [phone] [facility] [place] [facility] 08/25/21 Ervin Schroeder MD Referring Provider Family Medicine 03/24/[address] [place] [address] [phone] documented as of this encounter
--- OUTSIDE RECORDS SUMMARY | 2022-02-10 09:25 | XMS_ITS | Encounter Summary ---
:1990 Author Organization [facility] Address [address] [place] [address] Care Team Providers Name Role Phone Ana Red P.A.-C. Primary Care Provider [phone] Reason for Visit Reason Comments Post Hospital Follow-up [facility] Encounter Details Date Type Department Care Team Description 02/04/2022 Clinical Communication Department of [facility] Internal Myrtle Govea Follow-up ([facility] in 2199) [address] [phone] [facility] [place] [phone] (Work) [phone] Social History Tobacco Use Types Packs/Day Years [...] How often do you attend mormon or Patient refused 2021 sabianist services? Do you belong to any clubs or No 02/10/2022 organizations such as mormon groups, unions, fravivio or athletic groups, or school groups? 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 Patient was dismissed from the [facility] on 02/03/22 at 1808. [facility] Exclusion Criteria: Liver Transplant recipient (actively following with transplant team pre-transplant) documented in this encounter Plan of Treatment Upcoming Encounters Date Type Specialty Care Team Description Virtual Visit Transplant Matthew Jerome M .B.B.S., M.D. [address] [place] [address] 2 Rain Reyes R.N. [address] [place] [phone] Telemedicine Transplant LinaFederico 2 Brigid noyola M.D. [address] [place] [phone] Office Visit [facility] Internal [facility], 2 Solitario Perez P.A.-C. [address] [place] [phone] Lab Laboratory Medicine Karin, Olinda Gannon M.D., Ph.D. [address] [place] [phone] Lab Laboratory Medicine Karin, 2 Adeline Gannon M.D., Ph.D. [address] [place] [phone] Office Visit Transplant Karin, 2 Adeline Gannon M.D., Ph.D. [address] [place] [phone] Office Visit Family Medicine Robbin Maria 2, M.D. [address] [place] [phone] Appointment Radiology Matthew Jerome 2 Y M.B.B.SSuma, Lilian [address] [place] [phone] Appointment Gastroenterology and Adrianne, 2 Hepatology Yue Burciaga M.D. [address] [place] [phone] Office Visit Gastroenterology and Matthew Jerome 2 Hepatology Joshua RodriguezB.B.SLilian Moise [address] [place] [phone] Appointment Radiology Matthew Jerome 2 Y M.B.B.SLilian Moise [address] [place] [phone] Hospital Gastroenterology and [facility], Matthew Cirrhos is Alcoholic (HCC) 2 Encounter Hepatology Tyrell Rodriguez, Lilian [address] [place] [phone] Anesthesia Event Gastroenterology and Rl, 2 Hepatology Ervin Burgos M.D. [address] [place] [address] [phone] Surgery Gastroenterology and [facility], [place] ESOPHAG OGASTRODUODENOSCOPY 2 Hepatology Tyrell Rodriguez M.D. 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 PCP - General Internal Medicine 12/01/[address] [place] [address] [place] [phone] [facility] 08/25/21 Ervin Schroeder MD Referring Provider Family Medicine 03/24/[address] [place] [address] Doña AnaADI almaraz [phone] documented as of this encounter
--- OUTSIDE RECORDS SUMMARY | 2022-02-10 09:25 | XMS_ITS | Encounter Summary ---
:1990 Author Organization [facility] Address [address] [place] [address] Care Team Providers Name Role Phone Ana Red P.A.-C. Primary Care Provider [phone] Reason for Visit Reason Comments Phone Contact RN and MD follow up Encounter Details Date Type Department Care Team Description 02/04/2022 Clinical Department of [facility] Phone Contact (RN Communication Gastroenterology in Y, M.B.B.S., and MD follow up[facility] 10[address] [place] [phone] [place] [phone] Social History Tobacco Use Types Packs/Day Years [...] How often do you attend episcopalian or Patient refused 2021 mosque services? Do you belong to any clubs or No 02/10/2022 organizations such as episcopalian groups, unions, fraternal [...] or the highest technical, or vocational p [facility] degree you have received? 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 Jerome moved up to [place]. When I spoke with patient she stated Dr. Jerome is great but she'd rather see a [place] provider. She says [facility] keeps cancelling appts without telling her. Wasn't sure if we were able to schedule with clinic MD and schedule phone screen virtually? Please advise and I will call pt back to confirm appts. Thank you! documented in this encounter Plan of Treatment Upcoming Encounters Date Type Specialty Care Team Description Virtual Visit Transplant Matthew Jerome M .B.B.S., M.D. [address] [place] [phone] 2 Rain Reyes R.N. [address] [place] [phone] Telemedicine Transplant Ashtyn 2 Brigid noyola M.D. [address] [place] [phone] Office Visit [facility], 2 Medicine Vernell Perez [address] [place] [phone] Lab Laboratory Medicine Karin, Olinda Gannon M.D., Ph.D. [address] [place] [phone] Lab Laboratory Medicine Olinda Frazier M.D., Ph.D. [address] [place] [phone] Office Visit Transplant Olinda Frazier M.D., Ph.D. [address] [place] [phone] Office Visit Family Medicine Robbin Maria 2, M.D. 300 [place] [phone] Appointment Radiology Matthew Jerome 2 Vik RodriguezBLilian Bedolla [address] [place] [phone] Appointment Gastroenterology and Adrianne, 2 Hepatology Yue Burciaga M.D. [address] [place] [phone] Office Visit Gastroenterology and Matthew Jreome 2 Hepatology Joshua RodriguezBSumaBLilian Bedolla [address] [place] [phone] Appointment Radiology Matthew Jerome 2 Joshua RodriguezB.B.Lilian Stockton [address] [place] [phone] Hospital Gastroenterology and Matthew Jerome Cirrhos is Alcoholic (HCC) 2 Encounter Hepatology Joshua RodriguezBSumaBLilian Bedolla [address] [place] [phone] Anesthesia Event Gastroenterology and Rl, 2 Hepatology Ervin Burgos M.D. 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 PCP - General Internal Medicine 12/01/[address] [place] [phone] [facility] 08/25/21 Ervin Schroeder MD Referring Provider Family Medicine 03/24/[address] [place] [phone] documented as of this encounter
--- OUTSIDE RECORDS SUMMARY | 2022-02-10 09:26 | XMS_ITS | Encounter Summary ---
:1990 Author Organization [facility] Address [address] [place] [address] Care Team Providers Name Role Phone Ana Red P.A.-C. Primary Care Provider [phone] Reason for Visit Reason Comments Altered Mental Status Auth/Cert Specialty Diagnoses / Procedures Referred By Contact Refer red To Contact Diagnoses Pain Flank Procedures OBS Referral ID Status Reason Start Date Expiration Date Visits Requ ested Visits Authorized [id number] 1 1 Encounter Details Date Type Department Care Team Description 02/01/2022 - Emergency [facility] Paty Goldberg P.A.-C. [address] [place] [phone] Pain Flank (Primary Dx); 02/03/2022 [facility] Ott David M, M.D. [address] [place] [phone] Ascites Chronic; [facility], Vj Rodrigez M.B., Ch.B. [address] [place] [phone] Thrombocytopenia (HCC); [facility], Cirrhosi s Alcoholic (HCC); Third Floor Hypertension Portal (HCC); [address] [facility] [place] [phone] Social History Tobacco Use Types Packs/Day Years [...] How often do you attend caodaism or Patient refused 2021 gnosticist services? 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 Primary Team: [facility] Medicine 3 ([facility]) Primary Care Providers: Ana Red P.A.-C. (General) [address] [place] [phone] Primary Care Provider Primary Care Provider Other [...] P.A.-C. Community Internal Medicine 02/05/2022 3:15 PM [facility] 02 01 Radiology 02/10/2022 3:00 PM TXP PSYCHIATRY 01 ROCH Transplant 02/12/2022 9:20 AM LAB BLOOD [facility] Laboratory Medicine 02/12/2022 9:30 AM LAB URINE CONTAINER [facility] Laboratory Medicine 02/12/2022 11:00 AM TXP COUNSELOR 01 ROCH Transplant 02/18/2022 3:15 PM [facility] 02 Radiology 03/02/2022 10:00 AM RM 450 [facility] Gastroenterology and Hepatology 03/04/2022 9:30 AM Matthew Jerome M.B.B.S., M.D. Gastroenterology and Hepatology 03/05/2022 3:15 PM [place] [address] Radiology For appointment details refer to your [...] AM CDT You were discharged from the [facility] Medicine 3 ([facility]) Service. Please identify this service name if [...] multivitamin per CPA. Evon Rodriguez Pharm.D., R.Ph. [phone] Sara Gracia M.D. - 02/02/2022 6:04 AM CDT T Medicine 3 ([facility]) PROGRESS NOTE SUBJECTIVE Ms. Carias is a [...] / PLAN Ms. Carias is hospitalized on [facility] Medicine 3 ([facility]) for evaluation and management of Hepatic Failure [...] (not met): Pain control Plan discussed with [facility] Medicine 3 ([facility]) Automobile Mechanic, JEAN CARLOS [facility] who was present during judd portions of the evaluation today. Please page the [facility] Medicine 3 ([facility]) service pager at [phone] with any questions. documented in this encounter [...] Acute (Acute Kidney Injury) (HCC) Kishore Sotelo., Flash.B., [facility], FACMG, FACP Automobile Mechanic Hospitalist Yue Silver M.D. - 02/01/2022 5:13 PM CDT [facility] Medicine 3 ([facility]) Admission Note SUBJECTIVE CHIEF COMPLAINT Ms. Carias [...] She also said she was going to [facility] to meet her doctor. She is not [...] by refractory ascites, who is hospitalized on [place] [address] ([facility]) for evaluation and management of Pain Flank. [...] note I saw the patient with Dr. 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 Services Used: No Person(s) present during [...] Support System: Boyfriend Lobito Finance/Insurance Primary insurance: [facility] C[facility] RESTRICTED PLAN Secondary insurance: N/A [...] Communication: Can write, Talks, Understands speaking, Understands Micronesian, Reads Shopping: Needs assistance Transportation: Support from family Medication Management: Dependent Housekeeping: Dependent Meal Prep: Dependent Managing Finances: Independent Assistive Devices: Cane, Cellphone, Commode, Medication box, Handrails for stairs, Walker - front wheeled Services/Resources: Home health Agency Name: [facility] Services Provided: Medication Baseline Services/Resources Primary care clinic and provider: Ana Red P.A.-C. Services/Resources: Home health Additional Resources: Anticipated Needs Functional Status: None Assistive Devices: Emergency call system, Walker - four wheeled, Tub/shower chair/bench Agency Name: [facility] Services Provided: Medication Anticipated Modifications to the Patient's Home: None Transportation Needs: Support from family Does the patient need discharge transport arranged?: No Phone Number for Ride/Caregiver: [phone] Gonzalo Anticipated Discharge Destination: Home or Self Care ASSESSMENT / PLAN Assessment: The lifter met with Catia Carias to discuss her current hospitalization and home goingneeds. The patient was unaccompanied. The patient was a reliable historian. The role of lifter was reviewed. The patient reviewed her prior [...] Lobito with some assistance from the patient. lifter discussed the patient's potential needs at dismissal based on their home setting, previous needs and responsibilities, homebound status, and relevant assessments with the patient. The patient will be safe and supported to return home with erasmo Robin . when medically ready. Support will be provided by Loydfroylan Lobito . The patient demonstrated understanding when discussing her home going plans and anticipated needs. Home Health Reconnect was completed with [facility] Nurse Misbah Crook. At this time, the care team has not identified any skilled post-hospital discharge care needs that require the assistance of the Care Management Team. After reviewing the patient's chart and meeting with the patient, the lifter deemed the LACE+/readmission questions were not necessary. [...] will be provided by family--Boyfriend Lobito . lifter recommended a shower seat. lifter provided information regarding the dismissal process. lifter placed or requested the following hospital-based consult orders and/or referrals: None. lifter will continue to assess for homegoing needs with the interdisciplinary team. lifter encouraged the patient to reach out with any questions/concerns. Care Management will continue to follow. Signed by: Destiny Aden, JoshuaHVentura, RGabby 02/02/2022 documented in this encounter Nursing [...] establishingcare regarding her potential future transplant through [facility]. These concerns were brought up to her [...] the past week. Decreased PO intake. Ciara Morgan, R.N. 02/01/22 1309 documented in this encounter [...] Transplant Matthew Jerome M .B.B.S., M.D. [address] [place] [phone] 2 Rain Reyes R.N. [address] [place] [phone] Telemedicine Transplant LinaDemarcus 2 Brigid nooyla M.D. [address] [place] [phone] Office Visit [facility], 2 Medicine Vernell Perez [address] [place] [address] Lab Laboratory Medicine Olinda Frazier M.D., Ph.D. [address] [place] [phone] Lab Laboratory Medicine Olinda Frazier L, M.D., Ph.D. [address] [place] [phone] Office Visit Transplant Karin, 2 Adeline Gannon M.D., Ph.D. [address] [place] [phone] Office Visit Family Medicine Robbin Maria 2, M.D. [address] [place] [phone] Appointment Radiology Matthew Jerome 2 Y M.B.B.SSuma, Lilian [address] [place] [phone] Appointment Gastroenterology and Adrianne, 2 Hepatology Yue Burciaga M.D. [address] [place] [phone] Office Visit Gastroenterology and Matthew Jerome 2 Hepatology Elizabeth Rodriguez.B.B.SLilian Moise [address] [place] [phone] Appointment Radiology Matthew Jerome 2 Y M.B.B.SLilian Moise [address] [place] [phone] Hospital Gastroenterology and Matthew Jreome Cirrhos is Alcoholic (HCC) 2 Encounter Hepatology Joshua RodriguezB.B.SLilian Moise [address] [place] [phone] Anesthesia Event Gastroenterology and Rl, 2 Hepatology Ervin Burgos M.D. [address] [place] [phone] Surgery Gastroenterology and Mousa, Matthew ESOPHAG OGASTRODUODENOSCOPY 2 Hepatology Tyrell Rodriguez M.D. 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 BACTERIA / RAUDEL STAT 02/01/2022 10:47 Resul ts for this CULTURE, BLOOD AM CDT procedure are in the results section. VBG & LYTES CG8+, STAT 02/01/2022 10:36 Result s for this POCT, B AM CDT procedure are i n the results section. LACTATE, POCT, B STAT 02/01/2022 10:36 Results for this AM CDT procedure are i n the results section. HEPATIC FUNCTION STAT 02/01/2022 10:34 Results for this PANEL, S AM CDT procedure are i n the results section. BACTERIA / RADUEL STAT 02/01/2022 10:34 Resul ts for this CULTURE, BLOOD AM CDT procedure are in the results section. CBC WITH STAT 02/01/2022 10:34 Results for [...] Impressions 02/02/2022 9:53 AM CDT Ultrasound-guided paracentesis. BOILER HOUSE SUPERVISOR Narrative 02/02/2022 9:53 AM CDT EXAM: US [...] met. POST-PROCEDURE DIAGNOSIS: Ascites. IMPRESSION: Ultrasound-guided paracentesis. BOILER HOUSE SUPERVISOR Yue Silver M.D. IMG US PROCEDURES Gram Stain (02/02/2022 8:54 AM CDT) Patholo gist Method Time Signature Gram [...] [facility] - [address] [place], [place] [address] [facility] [place] [address] Laboratories-[facility] [address] Cell Count and Differential, Body Fluid (02/02/2022 8:54 AM CDT) [facility] Method Time Signature Fluid Type Peritoneal- 02/02/2022 DHPM Paracentesi 10:31 AM CDT s Gross Serous 02/02/2022 DH Appearance 10:31 AM CDT Total Nucleated 88 /mcL 02/02/2022 DHPM Cells 10:31 AM CDT Comment: ----REFERENCE VALUE---- Synovial: <150 /mcL Peritoneal: <500 /mcL Pleural: <500 /mcL Pericardial: <500 /mcL ----ADDITIONAL INFORMATION---- This test has been modified from the man ufacturer's instructions. Its performance characteri stics were determined by [facility] in a manner co nsistent with CLIA requirements. This test has not bee n cleared or approved by the U.S. Food and Drug Admin istration. Lymphocytes 85 Synovial <75% % 02/02/2022 11:59 AM CD T DHPM Monocytes/Macrophages 13 Synovial <70% % 02/02/2022 1 1:59 AM CDT DHPM Other Cells 2 % 02/02/2022 11:59 AM CDT PM Comment: ----REFERENCE VALUE---- The reference range and other method performance specifications have not been established for this bodyfluid. The test result must be integrated into the clinical context for interpretation. Other Cells Are: Mesothelial cells 02/02/2022 11:5 9 AM CDT PM Comment SeeComment 02/02/2022 11:59 AM CDT DHPM Comment: No blasts or malignant cells se en. Erythrophagocytosis present. Reviewed by: Tech 02/02/2022 11:59 AM CDT DHP M Specimen Anatomical Collection Method Collection Time Receive d Time (Source) Location / / Volume Laterality Fluid 02/02/2022 8:54 AM 2 (Peritoneal CDT 10:05 AM CDT Fluid) Matthew Santillan M.D. LAB BODY FLUIDS AND STOOLS ORDERABLES Performing Organization Address City/State/ZIP Code Phon e Number [facility] - [address] [place], [place] [address] [place] [address] Laboratories-[facility] [address] CK (Creatine Kinase) (02/02/2022 6:14 AM CDT) P athologist Signature Creatine Kinase 29 26 - 192 02/02/2022 DTL (CK), S U/L 7:44 AM CDT Specimen Anatomical Collection Method Collection Time Receive d Time (Source) Location / / Volume Laterality Blood (Blood, 02/02/2022 6:14 AM 02/03/20 22 7:21 Venous) CDT AM CDT Darrick CheryBSumaS. LAB BLOOD ADD-ON Performing Organization Address City/[facility] Phon e Number [facility] - [address] [place] [address] [place] [address] [place] [address] Laboratories-[address] (ABNORMAL) Prothrombin Time (PT) (02/02/2022 6:14 AM CDT) [facility] Method Time Signature Prothrombin 35.3 (H) [...] 02/03/20 22 7:00 Venous) CDT AM CDT Darrick CheyrB.S. LAB BLOOD ADD-ON Performing Organization Address City/State/[facility] Code Phon e Number [facility] - [address] [place] [address] [facility] [place] [address] Laboratories-[address] (ABNORMAL) CBC with Differential, Blood (02/02/2022 6:14 AM CDT) [facility] Method Time Signature Hemoglobin 7.3 (L) [...] [facility] - 200 [place], [place] [address] [facility] [place] [address] [facility] [address] [facility] (ABNORMAL) Basic Metabolic Panel (02/02/2022 6:14 AM CDT) athologist Signature Potassium, S 3.8 3.6 - [...] MEDICAL CENTER [facility] - [address] [place], [place] [address] [facility] [place] [address] Laboratories-[facility] [address] Abdomen [...] 3D image post-processing. COMPARISON: Multiple prior CTs, [facility] rec ent 01/31/2022. FINDINGS: CHEST: Negative for [...] Dipstick, POCT, Urine (02/01/2022 1:42 PM CDT) [facility] Method Time Signature Glucose, 100 (A) Negative 02/01/2022 PCED POCT, U mg/dL 1:44 PM CDT Ketone, POCT, Trace (A) Negative 02/01/2022 PCED U mg/dL 1:44 PM CDT Specific 1.020 1.005 - 02/01/2022 PCED Arvin, 1.030 1:44 PM CDT POCT, U Blood, [...] City/State/ZIP Code Phon e Number POC RST [facility] [address] [place] [address] [place] [address] [place] POC [address] (ABNORMAL) Dipstick, Urine (02/01/2022 1:37 PM CDT) [facility] Method Time Signature Hemoglobin, Negative Negative 02/01/2022 [...] P.A.-C. LAB URINE ORDERABLES Performing Organization Address City/[facility]/ZIP Code Phon e Number [facility] - 200 [place], [place] [address] [place] [address] [place], [place] [address] [place] [address] Osmolality, Urine (02/01/2022 1:37 PM CDT) athologist Signature Osmolality, U 548 150 - 1150 02/01/2022 DT mOsm/kg 8:41 PM CDT Specimen Anatomical Collection Method Collection Time Receive d Time (Source) Location / / Volume Laterality Urine 02/01/2022 1:37 PM 2 2:09 CDT PM CDT Paty Goldberg P.A.-C. LAB URINE ORDERABLES Performing Organization Address City/[facility]/ZIP Code Phon e Number [facility] - 200 [place] [address] 05 [place] [address] pH, Random, Urine (02/01/2022 1:37 PM CDT) athologist Signature pH, Random, U 5.9 4.5 - 8.0 02/01/2022 DT 8:41 PM CDT Specimen Anatomical Collection Method Collection Time Receive d Time (Source) Location / / Volume Laterality Urine 02/01/2022 1:37 PM 2 2:09 CDT PM CDT Paty Goldberg P.A.-C. LAB URINE ORDERABLES Performing Organization Address City/[facility]/ZIP Code Phon e Number [facility] - 200 [place], [place] [address] [place], [place] [address] [place] [address] (ABNORMAL) Microscopic Manual (02/01/2022 1:37 PM CDT) [...] P.A.-C. LAB URINE ORDERABLES Performing Organization Address [facility] Phon e Number [facility] - [address] (ABNORMAL) Gram Stain, Urine (02/01/2022 1:37 PM CDT) [place] Method Time Signature Source Urine, Urine, 02/01/2022 DTL Midstream 2:09 PM CDT Gram Stain, U Positive (A) Negative 02/01/2022 DTL 2:36 PM CDT Comment: Many Gram-positive cocci Specimen Anatomical Collection Method Collection Time Receive d Time (Source) Location / / Volume Laterality Urine 02/01/2022 1:37 PM 2 2:08 CDT PM CDT Paty Goldberg P.A.-C. LAB URINE ORDERABLES Performing Organization Address [facility] Phon e Number [facility] - 200 [place], [place] [address] [facility] [address] (ABNORMAL) Urinalysis with Microscopic: Urine, Midstream (02/01/2022 1:37 PM CDT) [place] Method Time Signature Source Urine, Urine, 02/01/2022 [...] P.A.-C. LAB URINE ORDERABLES Performing Organization Address City/[facility]/ZIP [facility] Phon e Number [facility] - [address] DTL [address] Lactate (02/01/2022 1:32 PM CDT) P athologist Signature Lactate, P 1.6 0.5 - 2.2 02/01/2022 STMA mmol/L 1:50 PM CDT Specimen Anatomical Collection Method Collection Time Receive d Time (Source) Location / / Volume Laterality Blood (Blood, 02/01/2022 1:32 PM 02/02/20 1:37 Venous) CDT PM CDT Paty Goldberg P.A.-C. LAB BLOOD NON ADD-ON Performing Organization Address City/[facility]/ZIP Code Phon e Number [facility] - [address] STMA [place] [id number] [address] DX Chest AP or PA and [...] 01/09/2022. Paty Goldberg P.A.-C. IMG DIAGNOSTIC IMAGING KAVITHA GREER Bacteria / Raudel Culture, Blood # 2 (02/01/2022 10:47 AM CDT) Patholo gist Method Time Signature Bacteria/Adriana No growth 02/06/2022 [...] MEDICAL CENTER [facility] - [address] [place], [place] [address] [facility] [place] [address] [facility] [address] Lactate, POCT (02/01/2022 10:36 AM CDT) Analysis Performed At Patho logist Time Signature Lactate, POCT Collected DEFAULT 02/01/2022 SMLX 10:36 AM CDT Specimen Anatomical Collection Method Collection Time Receive d Time (Source) Location / / Volume Laterality Blood (Blood, 02/01/2022 10:36 02/01/2022 Venous) AM CDT 10:36 AM CDT Paty Goldberg P.A.-C. LAB POCT ORDERABLES - DEVICE Performing Organization Address [facility] Phon e Number [facility] - 200 [place], [place] [address] [place] [address] Venous Blood Gas and Electrolytes CG8+, [...] ORDERABLES - DEVICE Performing Organization Address City/[facility] Phon e Number [facility] - 200 [place], [place] [address] [place], [place] [phone] [place] [address] Bacteria / Raudel Culture, Blood #1 (02/01/2022 10:34 AM CDT) Patholo gist Method Time Signature Bacteria/Adriana No growth 02/06/2022 DTL da Culture, after 5 1:02 PM CDT Blood days of incubation. Specimen (Source) Anatomical Collection Method Collection Time Re ceived Time Location / / Volume Laterality Blood (Blood, 02/01/2022 10:34 02/01/2022 Peripheral Draw) AM CDT 12:09 PM CD T Comment: Specimen Source Site: Blood Paty Goldberg P.A.-C. LAB MICROBIOLOGY - GENERAL O RDERABLES Performing Organization Address City/[facility] Phon e Number [facility] - 200 [place], [place] [address] [facility] [place], [place] [address] [place] [address] (ABNORMAL) Hepatic Function Panel (02/01/2022 10:34 AM CDT) [facility] Method Time Signature Bilirubin, Total, S 10.7 [...] Number [facility] - [address] [place] [address] [facility] [place] [address] [facility] 200 [facility] (ABNORMAL) CBC with Differential, Blood (02/01/2022 10:34 AM CDT) [facility] Method Time Signature Hemoglobin 7.9 (L) [...] [facility] - [address] [place], [place] [address] [facility] [place] [address] Laboratories[facility] [address] (ABNORMAL) Basic Metabolic Panel (02/01/2022 10:34 AM [...] P.A.-C. LAB BLOOD ADD-ON Performing Organization Address City/State/[facility] Code Phon e Number [facility] - [address] [facility] [address] [facility] (ABNORMAL) Ammonia (02/01/2022 10:34 AM CDT) P athologist Signature Ammonia, P 68 (H) <=30 02/01/2022 DTL mcmol/L 11:32 AM CDT Specimen Anatomical Collection Method Collection Time Receive d Time (Source) Location / / Volume Laterality Blood (Blood, 02/01/2022 10:34 02/01/2022 Venous) AM CDT 10:59 AM CDT Paty Goldberg P.A.-C. LAB BLOOD NON ADD-ON Performing Organization Address City/State/ZIP Code Phon e Number [facility] - [address] [place] [address] [facility] [address] [facility] Lactate, POCT (02/01/2022 10:31 AM CDT) athologist [...] City/State/ZIP Code Phon e Number POC [facility] [address] [place] [address] PCLX [facility] [place] [address] [facility] [address] [facility] (ABNORMAL) Venous Blood Gas and Electrolytes CG8+, POCT (02/01/2022 10:31 AM CDT) athologist [facility] Sample Site, Venstick 02/01/2022 PCSM POCT 10:55 [...] City/State/ZIP Code Phon e Number POC RST [facility] INPATIENT [address] [facility] [address] [address] [place], [place] [address] LABS PCSM [facility] [place] [address] [facility] [address] [place] [address] ECG 12 Lead (02/01/2022 10:22 AM CDT) P athologist Signature Ventricular Rate 91 BPM MUSE ECG/Min [place] Interval 152 ms MUSE QRSD Interval 86 ms MUSE QT Interval 398 ms MUSE QTC Interval 489 ms MUSE P [place] -3 degrees MUSE R [place] 16 degrees MUSE T Wave [place] 5 degrees MUSE Specimen Anatomical Collection Method [...] encounter Visit Diagnoses Diagnosis Cirrhosis Alcoholic (HCC) Hepatic Failure Unspecified Without Coma (HCC) [...] 25 g 25 g, intravenous, Once, On Wed02/02/22 at 1100, For 1 dose, If no infusion rate specified: Administer the 25% solution at 100 mL/hr wafmyfgeingsh-mhemenbxyv-wauwelky in Lipoderm Given 02/03/2022 8 :54 AM [...] times daily PRN, muscle spasms, Starting on Wed02/02/22 at 1000 Given 02/03/2022 5:24 AM CDT [...] Given 02/02/2022 6:25 AM CDT 400 mg namxdpzfzvuv-kzyz-KA-Ca-minerals 400 mcg Given 02/03/2022 8:55 A M CDT 1 tablet (folic acid) tablet 1 tablet (THERAPEUTI C-M) 1 tablet, oral, Daily, First dose on Wed02/02/22 at 0900 Given 02/02/2022 10:25 AM CDT 1 tablet ondansetron (PF) injection 4 mg (ZOFRAN) Given 02/01/2022 10:14 PM CDT 4 mg 4 mg, intravenous, Once, On 02/01/22 at 2215, For 1 dose oxyCODONE IR tablet 5 mg (ROXICODONE) Given 02/01/2022 11:55 PM CDT 5 mg 5 mg, oral, Once, On Wed02/01/22 at [...] oral, 2 times daily, First dose on 02/01/22 at 2100, Indications: hepatic encephalopathy Given 02/02/2022 8:55 PM CDT 550 mg Given 02/02/2022 10:25 AM CDT 550 mg sodium chloride (PF) 0.9 % injection 1-1 00 mL Given 02/01/2022 2:29 PM CDT 30 mL 1-100 mL, intravenous, Once, On 02/01/22 at 1426, For 1 dose, Imaging Protocol Orders spironolactone tablet 100 mg (ALDACTONE) Given 02/03/2022 8:54 AM CDT 100 mg 100 mg, oral, Daily, First dose (after last modification) on Wed02/02/22 at 0900 Given 02/02/2022 10:26 AM CDT 100 mg spironolactone tablet 50 mg (ALDACTONE) Given 02/01/2022 7:03 PM CDT 50 mg 50 mg, oral, Once, On Wed02/01/22 at 1830, For 1 dose thiamine tablet 100 mg (VITAMIN B1) Given 02/03/2022 8:56 AM CDT 100 mg 100 mg, oral, Daily, First dose on Wed02/02/22 at 0900 Given 02/02/2022 10:25 AM CDT 100 mg traZODone tablet 50 mg (DESYREL) Given 02/02/2022 8:55 PM CDT 50 mg 50 mg, oral, Daily at bedtime, First dose on Wed02/01/22 at 2100 Given 02/01/2022 10:16 PM CDT [...] 1147 (New Bag - Provider: Nabila Traore RGabby) 25 g, intravenous, Once, On Wed02/02/22 at 1100, For 1 dose, If no infusion rate specified: Administer the 25% solution at 100 mL/hr lmfovaphuxrjc-dbbfdkflcr-jlfwiqvr in Lipoderm 2%-5%-5% cream 1 g 2039 (Given - Provider: Elena Worthington R.N.) 1051 (Not Given - Provider: Nabila perry REric. - Reason: Patient/family refused)2057 (Given - Provider: Criselda Marley RSumaNSuma) 0854 (Given - Provider: Suleman Rivas R.N.) 1 g, topical, 2 times daily, First dose on 02/01/22 at 2100 cholecalciferol (vitamin D3) tablet 25 mcg 1026 (Given - Provider: Nabila Traore R.N.) 0855 (Given - Provider: Suleman Rivas R.N.) 25 mcg, oral, Daily, First dose on Wed at 0900, cholecalciferol (vitamin D3) orderable was interchanged for cholecalciferol (vitamin D3) tablet/capsule ciprofloxacin tablet 500 mg (CIPRO) 0624 (Given - Provider: Harish Massey RSumaNSuma) 0855 (Given - Provider: Suleman Rivas R.N.) [...] R.N.) 0749 (Given - Provider: Nabila arauz RGabby)1148 (Not Given - Provider: Nabila Traore R.N. [...] 0900 furosemide injection 10 mg (LASIX) (COMPLETED) 1902 (G iven - Provider: Elena Worthington R.N.) [...] 0525 (Not Given - Provider: Criselda mejia RSumaN. - Reason: Patient/family refused)1324 (Not Given - Provider: Nabila Traore R.N. - Reason: Patient/family refused) 5,000 Units, subcutaneous, Every 8 hours scheduled, First dose on Wed02/01/22 at 2200 lactulose solution 10 g (CHRONULAC) 2038 (Given - Prov ider: Elena Worthington R.N.) 1031 (Given - Provider: Nabila arauz RGabby)1148 (Given - Provider: Nabila Traore R.N.)1712 (Not [...] 2056 (Not Given - Provider: Criselda Marley RGabby - Reason: Patient/family refused) lidocaine 5 % [...] 0 625 (Given - Provider: Harish Massey RSumaNSuma)1753 (Not Given - Provider: Nabila Traore R.N. - Reason: Patient/family refused) 0901 (Given - Provider: Suleman Rivas R.N.)1618 (Given - Provider: Nabila Traore R.N.) 400 mg, oral, 2 times daily before break fast and dinner, First dose on Wed02/02/22 at 0700 ybpifjzzipls-dbwx-QU-Ca-minerals 400 mcg (folic acid) tablet 1 tablet (THERAPEUTIC-M) 5 (Given - Provider: Nabila arauz RGabby) 0855 (Given - Provider: Suleman Rivas R.N.) 1 tablet, oral, Daily, First dose on Wed02/02/22 at 0900 ondansetron (PF) injection 4 mg (ZOFRAN) (COMPLETED) 2 (Given - Provider: Elena Worthington R.N.) 4 mg, intravenous, Once, On 02/01/22 at 2215, For 1 dose oxyCODONE IR tablet 5 mg (ROXICODONE) (COMPLETED) 235 (Given - Provider: Harish Massey R.N.) 5 mg, oral, Once, On 02/01/22 at 2345, For [address] tablet 40 mg (PROTONIX) 623 (Given - Provider: Harish Massey R.N.) 0855 (Given - Provider: Suleman Rivas R.N.) 40 mg, oral, Daily before breakfast, Fir st dose on Wed02/02/22 at 0700, Swallow whole. Do NOT crush, chew, or split tablet. rifAXIMin tablet 550 mg (XIFAXAN) 2108 (Given - Provider: Francoise Worthington R.N.) 1025 (Given - Provider: Nabila Traore R.N.)2054 (Given - Provider: Criselda Marley R.N.) 0855 (Given - Provider: Suleman Rivas R.N.) 550 mg, oral, 2 times daily, First dose on 02/01/22 at 2100, Indications: hepatic encephalopathy sodium chloride (PF) 0.9 % injection 1-100 mL (COMPLET ED) 1429 (Given - Provider: David Johnston R.N.) 1-100 mL, intravenous, Once, On Sun 02/01 at 1426, For 1 dose, Imaging Protocol Orders spironolactone tablet 100 mg (ALDACTONE) 102 (Given - Provider: Nabila Traore R.N.) 0854 [...] zinc sulfate capsule 220 mg (ZINCATE) 10 (Given - Provider: Nabila Traore R.N.) 0855 (Given - Provider: Suleman Rivas R.N.) 220 mg, oral, Daily with breakfast, Firs t dose on Wed02/02/22 at 0800, Doses listed in zinc sulfate. Each 220 mg of zinc sulfate contains 50 mg of elemental zinc. PRN Medication Order 02/01/2022 02/02/2022 02/03/2022 acetaminophen tablet 500 mg (TYLENOL) 183 (Given - Pr ovider: Mel J Brii, R.N.) 0052 (Given - Provider: Harish Massey RSumaNSuma)1026 (Given - Provider: Nabila Traore R.N.)2056 (Given - Provider: Criselda Marley R.N.) 0333 (Given - Provider: Criselda Marley R.N.) 500 mg, oral, Every 6 hours PRN, mild pa in or score 1-3 of 10, moderate pain or score 4-6 of 10, severe pain or score 7-10 of 10, Starting on 02/01/22 at 1805 cyclobenzaprine tablet 5 mg (FLEXERIL) (CANCELED) 1903 (Given - Provider: Elena Worthington RGabby) 0748 (Given - Provider: Nabila Traore R.N.) 5 mg, oral, Daily PRN, muscle spasms, Starting on 02/01/22 at 1724 cyclobenzaprine tablet 5 mg (FLEXERIL) 1 326 (Given - Provider: Nabila Traore R.N.)2359 (Given - Provider: Criselda Marley R.N.) 0524 (Given - Provider: Criselda Marley R.N.)1612 (Given - Provider: Nabila Traore RGabby) 5 mg, oral, 2 times daily PRN, muscle spasms, Starting on Mon at 1000 fentaNYL injection 50 mcg (SUBLIMAZE) (COMPLETED) 1125 (Given - Provider: Ciara Morgan RSumaN.)1251 (Given - Provider: Vanessa Roach.N.)1335 (Given - Provider: Ciara Morgan R.N.) 50 mcg, intravenous, Every 15 min PRN, s evere pain or score 7-10 of 10, Starting on 02/01/22 at 1114, For 3 doses fentaNYL injection 50 mcg (SUBLIMAZE) (CANCELED) 1553 (Given - Provider: Ciara Morgan R.N.) 50 mcg, intravenous, Every 15 min PRN, s evere pain or score 7-10 of 10, Starting on 02/01/22 at 1448, For 3 doses iohexoL 350 mg iodine/mL solution 1-200 mL (OMNIPAQUE) (COMPLETED) 1429 (Given - Provider: David Johnston RGabby) 1-200 mL, intravenous, Once in imaging, contrast, Starting on 02/01/22 at 1425, For 1 dose, Imaging Protocol Orders, Dose per Radiant Medication Guidelines lidocaine 10 mg/mL (1 %) injection (XYLOCAINE) (COMPLETED) 09 (Given - Provider: Marialuisa Boogie M.D. - Comment: abdominal right) Code/trauma/sedation medication, Starting on 02/02/22 at 0906 prochlorperazine tablet 5 mg (COMPAZINE) 1357 (Given - Provider: Nabila Traore RSumaNSuma) 0907 (Given - Provider: Suleman Rivas RSumaNSuma) 5 mg, oral, Every 6 hours PRN, nausea, v omiting, Starting on 02/02/22 at 1255 documented in this encounter Additional Health Concerns Assessment Noted Time PHQ-9 Depression Total Score: 10 10/06/2021 5:00 PM CD T documented as of this encounter Care Teams Pants Closer Relationship Specialty Start Date End Date Ana Red P.A.-C. PCP - General Internal Medicine 12/01/[address] [place] [phone] [facility] [place] lab 08/25/21 Ervin Schroeder MD Referring Provider Family Medicine 03/24/[address] [place] [address] documented as of this encounter
--- OUTSIDE RECORDS SUMMARY | 2022-02-10 09:26 | XMS_ITS | Encounter Summary ---
:1990 Author Organization [facility] Address [address] [place] [address] Care Team Providers Name Role Phone Ana Red P.A.-C. Primary Care Provider [phone] Encounter Details Date Type Department Care Team Description 01/30/2022 Orders Only Division [facility] Harinder Mccormick M.D. Internal Medicine, [address] in [facility] [phone] [place] [address] [place], [place] [phone] Social History Tobacco Use Types Packs/Day Years [...] you attend shinto or Patient refused 2021 baptist services? 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 [address] [place] [address] [phone] Telemedicine Transplant Ashtyn 2 Brigid noyola M.D. [address] [place] [phone] Office Visit Community Internal Neda, 2 Medicine Vernell Perez [address] [place] [address] Lab Laboratory Medicine Karin, 2 Adeline Gannon M.D., Ph.D. [address] [place] [phone] Lab Laboratory Medicine Karin, 2 Adeline Gannon M.D., Ph.D. [address] [place] [phone] Office Visit Transplant Karin, 2 Adeline Gannon M.D., Ph.D. [address] [place] [phone] Office Visit Family Medicine Robbin Maria 2, M.D. 300 [place] [address] Appointment Radiology Matthew Jerome 2 MSumaB.B.SLilian Moise [address] [place] [address] Appointment Gastroenterology and [place], 2 Hepatology Yue Burciaga M.D. [address] [place] [phone] Office Visit Gastroenterology and Matthew Jerome 2 Hepatology Joshua RodriguezB.B.SLilian Moise [address] [place] [phone] Appointment Radiology [facility] 2 YTyrell M.D. [address] [place] [phone] Hospital Gastroenterology and [facility] Cirrhos is Alcoholic (HCC) 2 Encounter Hepatology Tyrell Rodriguez M.D. [address] [place] [address] Anesthesia Event Gastroenterology and [facility], 2 Hepatology Ervin Burgos M.D. [address] [place] [phone] Surgery Gastroenterology and [facility] ESOPHAG OGASTRODUODENOSCOPY 2 Hepatology Tyrell Rodriguez M.D. [address] [place] [phone] Scheduled Procedures Name Priority Associated Diagnoses Date/Time ESOPHAGOGASTRODUODENOSCOPY Cirrhosis Alc oholic (HCC) 03/20/2022 8:45 AM TESTING PROJECTS ADMINISTRATOR Hypertension Portal (HCC) documented as of this encounter Visit Diagnoses Not on filedocumented in this encounter Additional Health Concerns Assessment Noted Time PHQ-9 Depression Total Score: 10 10/06/2021 5:00 PM CD T documented as of this encounter Care Teams Pelts Skinner Relationship Specialty Start Date End Date Ana Red P.A.-C. PCP - General Internal Medicine 12/01/[address] [place], [place] [address] [phone] [facility]- [place] lab 08/25/21 Ervin Schroeder MD Referring Provider Family Medicine 03/24/[address] [place] [address] [place] [address] documented as of this encounter
--- OUTSIDE RECORDS SUMMARY | 2022-02-10 09:26 | XMS_ITS | Encounter Summary ---
:1990 Author Organization [facility] Address [address] [place] [address] Care Team Providers Name Role Phone Ana Red P.A.-C. Primary Care Provider [phone] Reason for Visit Reason Comments Post Hospital Follow-up Encounter Details Date Type Department Care Team Description 01/30/2022 Clinical Communication Department of [facility] Family Medicine, J, R.N. Follow-up [facility], in [facility] ([address] [phone] Social History Tobacco Use Types [...] How often do you attend taoist or Patient refused 2021 sabianist services? 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 [address] [place] [address] 2 Rain Reyes R.N. [address] [place] [phone] Telemedicine Transplant Ashtyn 2 Brigid noyola M.D. [address] [place] [phone] Office Visit Community Internal Neda, 2 Medicine Vernell Perez [address] [place] [address] Lab Laboratory Medicine Karin, 2 Adeline Gannon M.D., Ph.D. [address] [place] [phone] Lab Laboratory Medicine Karin, 2 Adeline Gannon M.D., Ph.D. [address] [place] [phone] Office Visit Transplant Karin, 2 Adeline Gannon M.D., Ph.D. [address] [place] [phone] Office Visit Family Medicine Robbin Maria 2, M.D. 300 [place] [address] Appointment Radiology Matthew Jerome 2 Y, JoshuaBSumaBGraeme, MJules [address] [place] [phone] Appointment Gastroenterology demian Silver, 2 Hepatology Yue Burciaga M.D. [address] [place] [address] [phone] Office Visit Gastroenterology and [facility] 2 Hepatology Tyrell Rodriguez M.D. [address] [place] [phone] Appointment Radiology [place] Matthew 2 YTyrell M.D. [address] [place] [phone] Hospital Gastroenterology and [facility] Cirrhos is Alcoholic (HCC) 2 Encounter Hepatology Tyrell Rodriguez M.D. [address] [place] [phone] Anesthesia Event Gastroenterology and Rl, 2 Hepatology Ervin Burgos M.D. [address] [place] [phone] Surgery Gastroenterology and [facility] ESOPHAG OGASTRODUODENOSCOPY 2 Hepatology Tyrell Rodriguez M.D. [address] [place] [phone] Scheduled Procedures Name Priority Associated Diagnoses Date/Time ESOPHAGOGASTRODUODENOSCOPY Cirrhosis Alc oholic (HCC) 03/20/2022 8:45 AM DIRECTOR OF INDUSTRIAL RELATIONS Hypertension Portal (HCC) documented as of this encounter Visit Diagnoses Not on filedocumented in this encounter Additional Health Concerns Assessment Noted Time PHQ-9 Depression Total Score: 10 10/06/2021 5:00 PM CD T documented as of this encounter Care Teams Senior Clerk Relationship Specialty Start Date End Date Ana Red P.A.-C. PCP - General Internal Medicine 12/01/[address] [place] [address] ADI Chua [phone] [facility] Ervin Schroeder MD Referring Provider Family Medicine 03/24/[address] [place] [address] documented as of this encounter
--- OUTSIDE RECORDS SUMMARY | 2022-02-10 09:26 | XMS_ITS | Encounter Summary ---
:1990 Author Organization [facility] Address [address] [place] [address] Care Team Providers Name Role Phone Ana Red P.A.-C. Primary Care Provider Reason for Visit Reason Comments Med Refill Encounter Details Date Type Department Care Team Description 01/29/2022 Refill Department of [facility] Ana Red , Med Refill Internal Medicine in [place], [place] 300 [facility] 300 [facility] [place] [address] [place] [address] [phone] Social History Tobacco Use Types Packs/Day Years [...] How often do you attend sabianism or Patient refused 2021 uatsdin services? Do you belong to any clubs or No 02/10/2022 organizations such as sabianism groups, unions, [email or web address] or athletic groups, or school groups? 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 [address] [place] [address] [phone] Telemedicine Transplant LinaFederico 2 Brigid noyola M.D. [address] [place] [phone] Office Visit Community Internal Neda, [place] Medicine Vernell Perez [address] [place] [phone] Lab Laboratory Medicine Karin, 2 Adeline Gannon M.D., Ph.D. [address] [place] [phone] Lab Laboratory Medicine Karin, 2 Adeline Gannon M.D., Ph.D. [address] [place] [phone] Office Visit Transplant Karin, 2 Adeline Gannon M.D., Ph.D. [address] [place] [phone] Office Visit Family Medicine Robbin Maria 2, M.D. 300 [place] [phone] Appointment Radiology Matthew Jerome 2 M.B.B.SLilian Moise [address] [place] [phone] Appointment Gastroenterology and [place] 2 Hepatology Yue Burciaga M.D. [address] [place] [phone] Office Visit Gastroenterology and Matthew Jerome 2 Hepatology Joshua RodriguezB.B.SLilian Moise 10[address] [place] [phone] Appointment Radiology [facility] 2 Tyrell Rodriguez M.D. [address] [place] [phone] Hospital Gastroenterology and [facility] Cirrhos is Alcoholic (HCC) 2 Encounter Hepatology Tyrell Rodriguez M.D. [address] [place] [phone] Anesthesia Event Gastroenterology and [facility]l, 2 Hepatology Ervin Burgos M.D. [address] [place] [phone] Surgery Gastroenterology and [facility] ESOPHAG OGASTRODUODENOSCOPY 2 Hepatology Tyrell Rodriguez M.D. [address] [place] [phone] Scheduled Procedures Name Priority Associated Diagnoses Date/Time ESOPHAGOGASTRODUODENOSCOPY Cirrhosis Alc oholic (HCC) 03/20/2022 8:45 AM SPINE NURSE Hypertension Portal (HCC) documented as of this encounter Visit Diagnoses Not on filedocumented in this encounter Additional Health Concerns Assessment Noted Time PHQ-9 Depression Total Score: 10 10/06/2021 5:00 PM CD T documented as of this encounter Care Teams Zipper Joiner Relationship Specialty Start Date End Date Ana Red P.A.-C. PCP - General Internal Medicine 12/01/[address] [place], [place] [address] [phone] [facility]- [place] lab 08/25/21 Ervin Schroeder MD Referring Provider Family Medicine 03/24/[address] [place] [address] [place] [address] documented as of this encounter
--- OUTSIDE RECORDS SUMMARY | 2022-02-10 09:26 | XMS_ITS | Encounter Summary ---
:1990 Author Organization [facility] Address [address] [place] [address] Care Team Providers Name Role Phone Ana Red P.A.-C. Primary Care Provider [phone] Encounter Details Date Type Department Care Team Description 01/29/2022 Orders Only Pharmacy Prior Auth Genaro Biggs [phone] Social History Tobacco Use Types Packs/Day Years [...] How often do you attend baptism or Patient refused 2021 mandaeism services? 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 [address] [place] [address] 2 Rain Reyes R.N. [address] [place] [address] [phone] Telemedicine Transplant LinaFederico 2 Brigid noyola M.D. [address] [place] [address] [phone] Office Visit Community Internal Neda, 2 Solitario Perez P.A.-C. [address] [place] [phone] Lab Laboratory Medicine Karin, 2 Adeline Gannon M.D., Ph.D. [address] [place] [phone] Lab Laboratory Medicine Karni, 2 Adeline Gannon M.D., Ph.D. [address] [place] [phone] Office Visit Transplant Karin, 2 Adeline Gannon M.D., Ph.D. [address] [place] [phone] Office Visit Family Medicine Robbin Maria 2, M.D. [address] [place] [phone] Appointment Radiology Matthew Jerome 2 Y, M.B.B.SSuma, MJules [address] [place] [phone] Appointment Gastroenterology demian Silver, 2 Hepatology Yue Burciaga M.D. [address] [place] [phone] Office Visit Gastroenterology and Matthew Jerome 2 Hepatology Jennifer M.B.B.SLilian Moise [address] [place] [phone] Appointment Radiology Matthew Jerome 2 Y M.B.B.SLilian Moise [address] [place] [phone] Hospital Gastroenterology and [place], Matthew Cirrhos is Alcoholic (HCC) 2 Encounter Hepatology Tyrell Rodriguez, Lilian [address] [place] [phone] Anesthesia Event Gastroenterology and Rl, 2 Hepatology Ervin Burgos M.D. [address] [place] [phone] Surgery Gastroenterology and [place], Matthew ESOPHAG OGASTRODUODENOSCOPY 2 Hepatology Tyrell Rodriguez, Lilian [address] [place] [phone] Scheduled Procedures Name Priority Associated Diagnoses Date/Time ESOPHAGOGASTRODUODENOSCOPY Cirrhosis Alc oholic (HCC) 03/20/2022 8:45 AM MANAGER HOSPICE Hypertension Portal (HCC) documented as of this encounter Visit Diagnoses Not on filedocumented in this encounter Additional Health Concerns Assessment Noted Time PHQ-9 Depression Total Score: 10 10/06/2021 5:00 PM CD T documented as of this encounter Care Teams Production Mechanic Relationship Specialty Start Date End Date Ana Red P.A.-C. PCP - General Internal Medicine 12/01/[address] [place] [address] [place] [phone] [facility]- [place] lab 08/25/21 Ervin Schroeder MD Referring Provider Family Medicine 03/24/[address] [place] [address] [place] [address] documented as of this encounter
--- OUTSIDE RECORDS SUMMARY | 2022-02-10 09:26 | XMS_ITS | Encounter Summary ---
:1990 [address] Organization [facility] Address [address] [place] [address] Care Team Providers Name Role Phone Ana Red P.A.-C. Primary Care Provider [phone] Encounter Details Date Type Department Care Team Description 01/30/2022 Orders Only RST HIM Sara Gracia R, [address] [place] [phone] [place] [phone] (Wo rk) Social History Tobacco Use Types [...] you attend sabianism or Patient refused 2021 methodist services? 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 [address] [place] [phone] Telemedicine Transplant Ashtyn 2 Brigid noyola M.D. [address] [place] [address] [phone] Office Visit Community Internal [facility], 2 Medicine Vernell Perez 300 [place] [phone] Lab Laboratory Medicine Karin, 2 Adeline Gannon M.D., Ph.D. [address] [place] [phone] Lab Laboratory Medicine Karin, 2 Adeline Gannon M.D., Ph.D. [address] [place] [phone] Office Visit Transplant Karin, 2 Adeline Gannon M.D., Ph.D. [address] [place] [phone] Office Visit Family Medicine Robbin Maria 2, M.D. 300 [place] [phone] Appointment Radiology Matthew Jerome 2 Y, M.B.B.SSuma, Lilian [address] [place] [address] Appointment Gastroenterology and Adrianne, 2 Hepatology Yue Burciaga M.D. [address] [place] [phone] Office Visit Gastroenterology and Matthew Jerome 2 Hepatology Jennifer M.B.B.SLilian Moise [address] [place] [phone] Appointment Radiology Matthew Jerome 2 Y, M.B.B.SLilian Moise [address] [place] [phone] Hospital Gastroenterology and [facility] Cirrhos is Alcoholic (HCC) 2 Encounter Hepatology Tyrell Rodriguez M.D. [address] [place] [phone] Anesthesia Event Gastroenterology and [facility], 2 Hepatology Ervin Burgos M.D. [address] [place] [phone] [address] [facility] ESOPHAG OGASTRODUODENOSCOPY 2 Hepatology Tyrell Rodriguez M.D. [address] [place] [phone] Scheduled Procedures Name Priority Associated Diagnoses Date/Time ESOPHAGOGASTRODUODENOSCOPY Cirrhosis Alc oholic (HCC) 03/20/2022 8:45 AM BUSINESS CONTINUITY PLANNING DIRECTOR Hypertension Portal (HCC) documented as of this encounter Visit Diagnoses Not on filedocumented in this encounter Additional Health Concerns Assessment Noted Time PHQ-9 Depression Total Score: 10 10/06/2021 5:00 PM CD T documented as of this encounter Care Teams Test Tube Maker Relationship Specialty Start Date End Date Ana Red P.A.-C. PCP - General Internal Medicine 12/01/[address] [place] [address] [place] [address] [facility] [place] [facility] 08/25/21 Ervin Schroeder MD Referring Provider Family Medicine 03/24/[address] [place] [address] [place] [address] documented as of this encounter
--- OUTSIDE RECORDS SUMMARY | 2022-02-10 09:26 | XMS_ITS | Encounter Summary ---
:1990 Author Organization [facility] Address [address] [place] [address] Care Team Providers Name Role Phone Ana Red P.A.-C. Primary Care Provider [phone] Encounter Details Date Type Department Care Team Description 01/30/2022 Clinical Communication RST Sara Gomez [address] [facility] Lilian Mendez [place], [place] [address] [place] [phone] [place] [phone] Social History Tobacco Use Types Packs/Day Years [...] How often do you attend latter-day or Patient refused 2021 congregational services? Do you belong to any clubs or No 02/10/2022 organizations such as latter-day groups, unions, fraternal [...] technical, or vocational p [facility] degree you have received? 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 - 01/30/2022 9:10 PM CDT Patient called [facility] Medicine 3 team overnight for severe back pain and abdominal pain. She was discharged on 01/29. This pain is usually controlled by Flexeril, which is normally prescribed by her PCP, but the patient was not able to chart picker this medication at her local pharmacy of [...] Transplant Matthew Jerome M .B.B.S., M.D. [address] [place] [address] 2 Rain Reyes R.N. [address] [place] [phone] Telemedicine Transplant [facility] hospital[facility] 2 Brigid noyola M.D. [address] [place] [phone] Office Visit Community Internal Neda, 2 Medicine Vernell Perez 300 [place] [address] Lab Laboratory Medicine Karin, 2 Adeline Gannon M.D., Ph.D. [address] [place] [phone] Lab Laboratory Medicine Karin, 2 Adeline Gannon M.D., Ph.D. [address] [place] [phone] Office Visit Transplant Karin, 2 Adeline Gannon M.D., Ph.D. [address] [place] [phone] Office Visit Family Medicine Robbin Maria 2, M.D. 300 [place] [address] Appointment Radiology Matthew Jerome 2, M.B.BLilian Bedolla [address] [place] [phone] Appointment Gastroenterology and Adrianne, 2 Hepatology Yue Burciaga M.D. [address] [place] [address] Office Visit Gastroenterology and LuisNew abdular 2 Hepatology Vik RodriguezBLilian Bedolla [address] [place] [phone] Appointment Radiology Matthew Jerome 2 Tyrell Rodriguez M.D. [address] [place] [phone] Hospital Gastroenterology and Matthew Jerome Cirrhos is Alcoholic (HCC) 2 Encounter Hepatology Vik RodriguezBLilian Bedolla [address] [place] [phone] Anesthesia Event Gastroenterology and Rl, 2 Hepatology Ervin Burgos M.D. [address] [place] [phone] Surgery Gastroenterology and Matthew Jerome ESOPHAG OGASTRODUODENOSCOPY 2 Hepatology Joshua RodriguezBSumaBLilian Bedolla [address] [place] [phone] Scheduled Procedures Name Priority Associated Diagnoses Date/Time ESOPHAGOGASTRODUODENOSCOPY Cirrhosis Alc oholic (HCC) 03/20/2022 8:45 AM CUSTOMER OPERATIONS ASSOCIATE Hypertension Portal (HCC) documented as of this encounter Visit Diagnoses Not on filedocumented in this encounter Additional Health Concerns Assessment Noted Time PHQ-9 Depression Total Score: 10 10/06/2021 5:00 PM CD T documented as of this encounter Care Teams Jewelry Mechanic Relationship Specialty Start Date End Date Ana Red P.A.-C. PCP - General Internal Medicine 12/01/[address] [place] [address] [facility] [place] [address] [facility] 08/25/21 Ervin Schroeder MD Referring Provider Family Medicine 03/24/[address] [place] [address] [place] [address] documented as of this encounter
--- OUTSIDE RECORDS SUMMARY | 2022-02-10 09:26 | XMS_ITS | Encounter Summary ---
:1990 Author Organization [facility] Address [address] [place] [address] Care Team Providers Name Role Phone Ana Red P.A.-C. Primary Care Provider [phone] Reason for Referral Outpatient (Routine) - Pending Review Specialty Diagnoses / Procedures Referred By Contact Refer red To Contact Diagnoses Ascites Chronic Matthew Jerome M.B.B.SSuma, [facility] Procedures US Paracentesis with Imaging Guidance M.DSuma [address] [place] [phone] Referral ID Status Reason Start Date Expiration Date Visits V isits Requested Authorized [id number] Pending 02/08/2022 02/08/2023 1 1 Review Outpatient (Routine) - Pending Review Specialty Diagnoses / Procedures Referred By Contact Refer red To Contact Diagnoses Ascites Chronic Matthew Jerome M.B.BSumaSSuma, [facility] Procedures US Paracentesis with Imaging Guidance M.DSuma [address] [place] [address] 52 Referral ID Status Reason Start Date Expiration Date Visits V isits Requested Authorized [id number] Pending 02/08/2022 02/08/2023 1 1 Review Outpatient (Routine) - Pending Review Specialty Diagnoses / Procedures Referred By Contact Refer red To Contact Diagnoses Ascites Chronic Mathtew Jerome M.B.B.S., [facility] Procedures US Paracentesis with Imaging Guidance M.DSuma [address] [place] [address] 52 Referral ID Status Reason Start Date Expiration Date Visits V isits Requested Authorized [id number] Pending 02/08/2022 02/08/2023 1 1 Review Outpatient (Routine) - Pending Review Specialty Diagnoses / Procedures Referred By Contact Refer red To Contact Diagnoses Ascites Chronic Matthew Jerome M.B.B.S., [facility] Procedures US Paracentesis with Imaging Guidance M.DSuma [address] [place] [address] 52 Referral ID Status Reason Start Date Expiration Date Visits V isits Requested Authorized [id number] Pending 02/08/2022 02/08/2023 1 1 Review Outpatient (Routine) - Pending Review Specialty Diagnoses / Procedures Referred By Contact Refer red To Contact Diagnoses Ascites Chronic Matthew Jerome M.B.B.S., [facility] Procedures US Paracentesis with Imaging Guidance M.DSuma [address] [place] [address] 52 Referral ID Status Reason Start Date Expiration Date Visits V isits Requested Authorized [id number] Pending 02/08/2022 02/08/2023 1 1 Review Encounter Details Date Type Department Care Team Description 02/03/2022 Clinical Communication Department of Matthew Jerome, Gastroenterology in Joshua Santillan [address] [phone] Social History Tobacco Use Types Packs/Day Years [...] you attend gnosticism or Patient refused 2021 taoism services? Do you belong to [...] vocational p [facility] degree you have received? 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 - 02/08/2022 2:41 PM CDT Addended by: MATTHEW JEROME on: 02/08/2022 02:41 PM Modules accepted: Orders Addendum Note - Laura Randhawa L.PGabby - 02/06/2022 2:13 PM CDT Addended by: LAURA RANDHAWA on: 02/06/2022 02:13 PM Modules accepted: Orders Telephone Encounter - Laura Randhawa L.P.N. - 02/06/2022 1:57 PM CDT Air Sealing Technician called and discussed with the patient that Dr. Jerome felt it was appropriate for her to be seen in March 2022 since she was recently hospitalized and seen in [facility] and that he did not need to follow her the same month as she had been seen in [facility]. Air Sealing Technician explained that I am unsure why she was not notified of the change in appointment before the change was made. She reports she only found out because she had logged onto the portal and looked at her upcoming appointments. She reports she did not receive a call or text informing her of the change in appointment and expressed frustration relatedto this lack of communication. Patient inquired if she should transfer care to [facility] if this is going to continue. Air Sealing Technician verbalized understanding of her frustration but informed her that often RST is very particular about transfer of care from a health systems that is able to manage the patient. Informed her she could however discuss this further with Dr. Jerome when she comes in March for follow up. She did ask for some additional paracentesis orders to be placed for RST. She states that when she was there for paracentesis yesterday they were not able to pull all the ascites and requested an appointment for early next week to go back for an additional paracentesis. She states that when she was there yesterday they did inquire if she wanted to stay and have a paracentesis started on the oppositeside of the abdomen to pull fluid and the patient declined at that time. She states that she now knows if this happens again to go ahead and agree to additional paracentesis on opposite side of the abdomen. Paracentesis orders x 5 have been pended for your review prior to signing. I have entered one order for early next week and the remaining 4 are for further future appointments. Thank you! Telephone Encounter - Priscilla Castorena - 02/03/2022 4:34 PM CDT Patient called and inquired about why appointment was rescheduled to 03/04. The order notes state Per Queenie wants to see in March pt seeing [facility] in January. Air Sealing Technician stated this to patient and she stated that nobody had called her to tell her the appointment had moved, however, Air Sealing Technician stated that our scheduling team in [place] does not change appointments without contacting the patient affected. Patient insisted she was never contacted and became very agitated. Air Sealing Technician stated that a message would be sent [...] Transplant Matthew Jerome M .B.B.S., Lilian [address] [place] [address] 2 Rain Reyes R.N. [address] [place] [phone] Telemedicine Transplant LinaDemarcus 2 Brigid noyola M.D. [address] [place] [phone] Office Visit Community Internal Neda, 2 Medicine Vernell Perez 300 [place] [address] Lab Laboratory Medicine Karin, 2 Adeline Gannon M.D., Ph.D. [address] [place] [phone] Lab Laboratory Medicine Karin, 2 Adeline Gannon M.D., Ph.D. [address] [place] [phone] Office Visit Transplant Karin, 2 Adeline Gannon M.D., Ph.D. [address] [place] [phone] Office Visit Family Medicine Robbin Maria 2, M.D. 300 [place] [address] Appointment Radiology Matthew Jerome 2 YVikBGraeme, Lilian [address] [place] [phone] Appointment Gastroenterology and Adrianne, 2 Hepatology Yue Burciaga M.D. [address] [place] [address] Office Visit Gastroenterology and Matthew Jerome 2 Hepatology Vik RodriguezBGraeme, Lilian [address] [place] [phone] Appointment Radiology LuisMatthew abdul 2 Tyrell Rodriguez M.D. [address] [place] [phone] Hospital Gastroenterology and Queenie Matthew Cirrhos is Alcoholic (HCC) 2 Encounter Hepatology Joshua RodriguezBJhoan, Lilian [address] [place] [phone] Anesthesia Event Gastroenterology and Rl, 2 Hepatology Ervin Burgos M.D. [address] [place] [phone] Surgery Gastroenterology and Queenie Matthew ESOPHAG OGASTRODUODENOSCOPY 2 Hepatology Joshua RodriguezB.B.Kath, Lilian [address] [place] [phone] Scheduled Orders Name Type Priority Associated Order Schedule Diagnoses US Paracentesis with Imaging RAD - Routine (most Ascites Chron ic Expected: Imaging Guidance inpatients and all 03/18, outpatients) Expires: 05/09/2023 US Paracentesis with Imaging RAD - Routine (most Ascites Chron ic Expected: Imaging Guidance inpatients and all 04/01, outpatients) Expires: 05/09/2023 US Paracentesis with Imaging RAD - Routine (most Ascites Chron ic Expected: Imaging Guidance inpatients and all 04/15, outpatients) Expires: 05/09/2023 US Paracentesis with Imaging RAD - Routine (most Ascites Chron ic Expected: Imaging Guidance inpatients and all 04/29, outpatients) Expires: 05/09/2023 US Paracentesis with Imaging RAD - Routine (most Ascites Chron ic Expected: Imaging Guidance inpatients and all 02/09, outpatients) Expires: 05/09/2023 Scheduled Procedures Name Priority Associated Diagnoses Date/Time ESOPHAGOGASTRODUODENOSCOPY Cirrhosis Alc oholic (HCC) 03/20/2022 8:45 AM RECORD LABEL INTERN Hypertension Portal (HCC) documented as of this encounter Visit Diagnoses Diagnosis Cirrhosis Alcoholic (HCC) Ascites Chronic - Primary Cirrhosis Alcoholic (HCC) Hypertension Portal (HCC) documented in this encounter Additional Health Concerns Assessment Noted Time PHQ-9 Depression Total Score: 10 10/06/2021 5:00 PM CD T documented as of this encounter Care Teams Collar Setter Overlock Relationship Specialty Start Date End Date Ana Red P.A.-C. PCP - General Internal Medicine 12/01/[address] [phone] [facility] [place] [facility] 08/25/21 Ervin Schroeder MD Referring Provider Family Medicine 03/24/[address] [place] [address] documented as of this encounter
--- OUTSIDE RECORDS SUMMARY | 2022-02-10 09:26 | XMS_ITS | Encounter Summary ---
:1990 Author Organization [facility] Address [address] [place] [address] Care Team Providers Name Role Phone Ana Red P.A.-C. Primary Care Provider [phone] Encounter Details Date Type Department Care Team Description 02/02/2022 Clinical Communication Department of Neda [facility] Farida Perez Medicine in [address] [address] [place], [place] [phone] (Work) [phone] Social History Tobacco Use Types Packs/Day Years [...] How often do you attend zoroastrian or Patient refused 2021 latter day services? Do you belong to any clubs or No 02/10/2022 organizations such as zoroastrian groups, unions, fraternal [...] the highest level of school Associate degree: [employer], 07/16/2021 you have completed or the highest technical, or vocational p [facility] degree you have received? 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 [phone] Telephone Encounter - Paty Stevens - 02/02/2022 10:39 AM CDT Reason for Communication: Patients calling in and stated that she is in [facility] and is needing the provider to fill [...] Transplant Matthew Jerome M .B.B.S., MJules [address] [place] [address] 2 Rain Reyes RGabby [address] [place] [phone] Telemedicine Transplant LinaFederico 2 Brigid noyola M.D. [address] [place] [phone] Office Visit Community Internal Neda, 2 Solitario Perez P.A.-C. 300 [place] [phone] Lab Laboratory Medicine Karin, 2 Adeline Gannon M.D., Ph.D. [address] [place] [phone] Lab Laboratory Medicine Karin, 2 Adeline Gannon M.D., Ph.D. [address] [place] [phone] Office Visit Transplant Karin, 2 Adeline Gannon M.D., Ph.D. [address] [place] [phone] Office Visit Family Medicine Robbin Maria 2, M.D. [address] [place] [phone] Appointment Radiology Matthew Jerome 2 YJoshuaBSumaBLilian Bedolla [address] [place] [phone] Appointment Gastroenterology and Adrianne, 2 Hepatology Yue Burciaga M.D. [address] [place] [phone] Office Visit Gastroenterology and Matthew Jerome 2 Hepatology Joshua RodriguezBSumaBLilian Bedolla [address] [place] [phone] Appointment Radiology Matthew Jerome 2 Joshua RodriguezB.BLilian Bedolla [address] [place] [phone] Hospital Gastroenterology and Matthew Jerome Cirrhos is Alcoholic (HCC) 2 Encounter Hepatology Vik RodriguezBLilian Bedolla [address] [place] [phone] Anesthesia Event Gastroenterology and Rl, 2 Hepatology Ervin Burgos M.D. [address] [place] [phone] Surgery Gastroenterology and Mousa, Matthew ESOPHAG OGASTRODUODENOSCOPY 2 Hepatology Tyrell Rodriguez M.D. 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 PCP - General Internal Medicine 12/01/[address] [place] [phone] [facility] 08/25/21 Ervin Schroeder MD Referring Provider Family Medicine 03/24/[address] [place] [address] documented as of this encounter
--- OUTSIDE RECORDS SUMMARY | 2022-02-10 09:26 | XMS_ITS | Encounter Summary ---
:1990 Author Organization [facility] Address [address] [place] [address] Care Team Providers Name Role Phone Ana Red P.A.-C. Primary Care Provider [phone] Reason for Visit Reason Comments Post Hospital Follow-up Encounter Details Date Type Department Care Team Description 01/30/2022 Clinical Department of Par[facility] meagan Communication [facility] Internal A, R.N. Follow-up Medicine in [address] [place] [phone] [place] [address] [place], [place] (Work) [phone] Social History Tobacco Use [...] you attend mormon or Patient refused 2021 hindu services? Do you belong to any clubs or No 02/10/2022 organizations such as mormon groups, unions, fraternal [...] or the highest technical, or vocational p [facility] degree you have received? 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 [address] [place] [phone] 2 Rain Reyes R.N. [address] [place] [phone] Telemedicine Transplant LinaFederico 2 Brigid noyola M.D. [address] [place] [phone] Office Visit Community Internal [facility], 2 Medicine Vernell Perez 300 [place] [address] Lab Laboratory Medicine Karin, 2 Adeline Gannon M.D., Ph.D. [address] [place] [phone] Lab Laboratory Medicine Karin, 2 Adeline Gannon M.D., Ph.D. [address] [place] [phone] Office Visit Transplant Karin, 2 Adeline Gannon M.D., Ph.D. [address] [place] [phone] Office Visit Family Medicine Robbin Maria 2, M.D. 300 [place] [phone] Appointment Radiology Matthew Jerome 2 Y, Tyrell, MJules 1025 [place] [phone] Appointment Gastroenterology and Adrianne, 2 Hepatology Yue Burciaga M.D. [address] [place] [phone] Office Visit Gastroenterology and [facility] 2 Hepatology Tyrell Rodriguez M.D. [address] [place] [phone] Appointment Radiology [facility] 2 Tyrell Rodriguez M.D. [address] [place] [phone] [facility] Gastroenterology and [facility] Cirrhos is Alcoholic (HCC) 2 Encounter Hepatology Tyrell Rodriguez M.D. [address] [place] [phone] Anesthesia Event Gastroenterology and [facility]l, 2 Hepatology Ervin Burgos M.D. [address] [place] [phone] Surgery Gastroenterology and [facility] ESOPHAG OGASTRODUODENOSCOPY 2 Hepatology Tyrell Rodriguez M.D. 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 documented in this encounter Results EXT ThinPrep Screen (02/28/2014) [facility] Method Time Signature EXT ThinPrep Normal - Normal - See Screen See Scanned Scanned Report for Report for Details Details, HIMS - Report Received and Scanned Comment: See Care Everywhere for Results Specimen (Source) Anatomical Location Collection Method / Collectio n Time Received Time / Laterality Volume Thin Prep Vial 02/28/2014 (Cervix/Endocervi x) Impressions Jinny Christensen - 03/05/2014 9:07 AM ELECTRICAL AND RADIO AIRCRAFT MECHANIC Resulting Agency [facility] Specimen Collected: 02/28/14 14:36 Last Resulted: 03/05/14 09:07 Received From: [employer] Result Received: 11/29/18 11:58 Historical Provider LAB PAP PATHDX ORDERABLES documented in this encounter Visit Diagnoses Not on filedocumented in this encounter Additional Health Concerns Assessment Noted Time PHQ-9 Depression Total Score: 10 10/06/2021 5:00 PM CD T documented as of this encounter Care Teams Safety And Occupational Health Manager Relationship Specialty Start Date End Date Ana Red P.A.-C. PCP - General Internal Medicine 12/01/[address] [place] [phone] [facility] [place] [facility] 08/25/21 Ervin Schroeder MD Referring Provider Family Medicine 03/24/[address] [place] [address] documented as of this encounter
--- OUTSIDE RECORDS SUMMARY | 2022-02-10 09:26 | XMS_ITS | Encounter Summary ---
:1990 Author Organization [facility] Address [address] [place] [address] Care Team Providers Name Role Phone Ana Red P.A.-C. Primary Care Provider [phone] Encounter Details Date Type Department Care Team Description 01/30/2022 Clinical Communication [facility] Farida Perez Medicine in [address] [phone] [place], [place] [phone] (Work) [phone] Social History Tobacco Use Types Packs/Day Years [...] How often do you attend spiritism or Patient refused 2021 holiness services? 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 Thank you, Paty iGorgi documented in this encounter Plan of Treatment Upcoming Encounters Date Type Specialty Care Team Description Virtual Visit Transplant Matthew Jerome M .B.B.S., MJules [address] [place] [phone] 2 Rain Reyes, R.NSuma [address] [place] [phone] Telemedicine Transplant LinaDemarcus 2 Brigid noyola M.D. [address] [place] [phone] Office Visit Replaced By [facility] Internal Carlos, 2 Medicine Vernell Perez 300 [place] [address] Lab Laboratory Medicine Olinda Frazier M.D., Ph.D. [address] [place] [phone] Lab Laboratory Medicine Olinda Frazier M.D., Ph.D. [address] [place] [phone] Office Visit Transplant Karin, 2 Adeline Gannon M.D., Ph.D. [address] [place] [phone] Office Visit Family Medicine Robbin Maria 2, M.D. [address] [place] [phone] Appointment Radiology Matthew Jerome 2 YTyrell M.D. [address] [place] [phone] Appointment Gastroenterology and Adrianne, 2 Hepatology Yue Burciaga M.D. [address] [place] [phone] Office Visit Gastroenterology and Matthew Jerome 2 Hepatology Vik RodriguezBLilian Bedolla [address] [place] [phone] Appointment Radiology Matthew Jerome 2 YJoshuaBSumaBLilian Bedolla [address] [place] [phone] Hospital Gastroenterology and Matthew Jerome Cirrhos is Alcoholic (HCC) 2 Encounter Hepatology Tyrell Rodriguez M.D. [address] [place] [phone] Anesthesia Event Gastroenterology and Rl, 2 Hepatology Ervin Burgos M.D. [address] [place] [phone] Surgery Gastroenterology and Mousa, Matthew ESOPHAG OGASTRODUODENOSCOPY 2 Hepatology Tyrell Rodriguez M.D. [address] [place] [phone] Scheduled Procedures Name Priority Associated Diagnoses Date/Time ESOPHAGOGASTRODUODENOSCOPY Cirrhosis Alc oholic (HCC) 03/20/2022 8:45 AM SAFETY COUNSELOR Hypertension Portal (HCC) documented as of this encounter Visit Diagnoses Not on filedocumented in this encounter Additional Health Concerns Assessment Noted Time PHQ-9 Depression Total Score: 10 10/06/2021 5:00 PM CD T documented as of this encounter Care Teams Barrel Rifler Button Relationship Specialty Start Date End Date Ana Red P.A.-C. PCP - General Internal Medicine 12/01/[address] [place] [phone] [facility] [place] [facility] 08/25/21 Ervin Schroeder MD Referring Provider Family Medicine 03/24/[address] [place] [address] documented as of this encounter
--- OUTSIDE RECORDS SUMMARY | 2022-02-10 09:26 | XMS_ITS | Encounter Summary ---
:1990 Author Organization [facility] Address [address] [place] [address] Care Team Providers Name Role Phone Ana Red VenturaCSuma Primary Care Provider [phone] Encounter Details Date Type Department Care Team Description 02/02/2022 Orders Only Department of [facility] Ana Red , Internal Medicine in [place], [place] 300 [facility] 300 [facility] [place] [phone] (Wo rk) Social History Tobacco [...] How often do you attend scientology or Patient refused 2021 confucianist services? 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 10[address] [place] [phone] 2 Rain Reyes R.N. [address] [place] [phone] Telemedicine Transplant LinaFederico 2 Brigid noyola M.D. [address] [place] [phone] Office Visit Community Internal Neda, 2 Medicine Vernell Perez 300 [place] [phone] Lab Laboratory Medicine Karin, 2 Adeline Gannon M.D., Ph.D. [address] [place] [phone] Lab Laboratory Medicine Karin, 2 Adeline Gannon M.D., Ph.D. [address] [place] [phone] Office Visit Transplant Karin, 2 Adeline Gannon M.D., Ph.D. [address] [place] [phone] Office Visit Family Medicine Robbin Maria 2, M.D. 300 [place] [phone] Appointment Radiology Matthew Jerome 2 M.B.B.Lilian [place] 10[address] [place] [phone] Appointment Gastroenterology and Adrianne, 2 Hepatology Yue Burciaga M.D. [address] [place] [phone] Office Visit Gastroenterology and Matthew Jerome 2 Hepatology Joshua RodriguezB.B.SLilian Moise 1025 [place] [phone] Appointment Radiology Queenie Matthew 2 YTyrell M.D. [address] [place] [phone] [address] Gastroenterology and [facility] Matthew Cirrhos is Alcoholic (HCC) 2 Encounter Hepatology Tyrell Rodriguez M.D. [address] [place] [phone] Anesthesia Event Gastroenterology and Rl, 2 Hepatology Ervin Burgos M.D. [address] [place] [phone] Surgery Gastroenterology and [facility] ESOPHAG OGASTRODUODENOSCOPY 2 Hepatology Tyrell Rodriguez M.D. [address] [place] [phone] Scheduled Procedures Name Priority Associated Diagnoses Date/Time ESOPHAGOGASTRODUODENOSCOPY Cirrhosis Alc oholic (HCC) 03/20/2022 8:45 AM MANAGER INTEGRATED Hypertension Portal (HCC) documented as of this encounter Visit Diagnoses Not on filedocumented in this encounter Additional Health Concerns Assessment Noted Time PHQ-9 Depression Total Score: 10 10/06/2021 5:00 PM CD T documented as of this encounter Care Teams Applications Support Analyst Relationship Specialty Start Date End Date Ana Red P.A.-C. PCP - General Internal Medicine 12/01/[address] [place] [address] [place] [phone] [facility] lab 08/25/21 Ervin Schroeder MD Referring Provider Family Medicine 03/24/[address] [place] [address] [place] [address] documented as of this encounter
--- OUTSIDE RECORDS SUMMARY | 2022-02-10 09:27 | XMS_ITS | Encounter Summary ---
:1990 Author Organization [facility] Address [address] [place] [address] Care Team Providers Name Role Phone Ana Red P.A.-C. Primary Care Provider [phone] Reason for Visit Reason Comments Phone Contact Encounter Details Date Type Department Care Team Description 01/29/2022 Clinical Communication Adry Orourke Phone Contact Center for [address] [place] [address] Transplantation [place] [phone] [place], [place] [phone] [place] [address] (Work) [place] [phone] Social History Tobacco Use Types Packs/Day [...] How often do you attend restoration or Patient refused 2021 sikh services? 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 Call log added. Telephone Encounter - Jo Ann Blakely - 01/29/2022 11:57 AM CDT Alisha from [place] reaching out to the transplant team to assist pt in scheduling appts. Pt is also wanting to transfer her care from [place] to [place]. Please reach out to the pt at [phone]. Thanks, documented in this encounter Plan of Treatment Upcoming Encounters Date Type Specialty Care Team Description Virtual Visit Transplant Matthew Jerome M .B.B.S., Lilian 10[address] [place] [phone] 2 Rain Reyes R.N. [address] [place] [phone] Telemedicine [facility] 2 Brigid noyola M.D. [address] [place] [phone] Office Visit Community Internal Neda, 2 Medicine Vernell Perez 300 [place] [phone] Lab Laboratory Medicine Karin, 2 Adeline Gannon M.D., Ph.D. [address] [place] [phone] Lab Laboratory Medicine Karin, 2 Adeline Gannon M.D., Ph.D. [address] [place] [phone] Office Visit Transplant Karin, 2 Adeline Gannon M.D., Ph.D. [address] [place] [phone] Office Visit Family Medicine Robbin Maria 2, M.D. 300 [place] [phone] Appointment Radiology [place] Jerome[place] 2 Tyrell Rodriguez, Lilian [address] [place] [phone] Appointment Gastroenterology and Adrianne, 2 Hepatology Yue Burciaga M.D. [address] [place] [phone] Office Visit Gastroenterology and Matthew Jerome 2 Hepatology Tyrell Rodriguez M.D. [address] [place] [phone] Appointment Radiology LuisNew abdular 2 Tyrell Rodriguez M.D. [address] [place] [phone] Hospital Gastroenterology and LuisMatthew abdul Cirrhos is Alcoholic (HCC) 2 Encounter Hepatology Tyrell Rodriguez M.D. [address] [place] [phone] Anesthesia Event Gastroenterology and Rl, 2 Hepatology Ervin Burgos M.D. 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 PCP - General Internal Medicine 12/01/[address] [place] [phone] [facility] 08/25/21 Ervin Schroeder MD Referring Provider Family Medicine 03/24/[address] [place] [address] documented as of this encounter
--- OUTSIDE RECORDS SUMMARY | 2022-02-10 09:27 | XMS_ITS | Encounter Summary ---
:1990 Author Organization [facility] Address [address] [place] [address] Care Team Providers Name Role Phone Ana Red P.A.-C. Primary Care Provider Reason for Referral Outpatient (Routine) - Pending Review Specialty Diagnoses / Procedures Referred By Contact Refer red To Contact Diagnoses Cirrhosis Alcoholic (HCC) Hypertension Portal (HCC) Esophageal Varices Without Bleeding (HCC) Yue Silver M.D. [facility] Procedures EGD [address] [place] [phone] Referral ID Status Reason Start Date Expiration Date Visits V isits Requested Authorized [id number] Pending 01/28/2022 01/28/2023 1 1 Review Outpatient (Routine) - Authorized Specialty Diagnoses / Procedures Referred By Contact Refer red To Contact Diagnoses Cirrhosis Alcoholic (HCC) Ascites Hepatic Failure Unspecified Without Coma (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 (HCC) Gerda Hull M.D., M.S. [address] [place] [address] [phone] Referral ID Status Reason Start Date Expiration Date Visits V isits Requested Authorized [id number] Authorized 01/27/2022 01/27/2023 1 1 Reason for [...] Expiration Date Visits Requ ested Visits Authorized [id number] 1 1 Encounter Details Date Type Department Care Team Description 01/20/2022 - [facility] Cody Knight M.D. [address] [place] [address] [phone] Failure Renal Acute (Acute Kidney Injury ) (HCC) (Primary Dx); 01/29/2022 [facility] [address] [place] [address] [phone] Cirrhosis Alcoholic (HCC); [facility] [address] [place] [address] [phone] Alcohol Use Unspecified With Unspecified Alcohol Induced Disorder (HCC); Ervin Hamm M.D. [address] [place] [address] [phone] Ascites; Building, Fifth Hepatic Fail ure Unspecified Without Coma (HCC); Floor Hepatic Encephalopathy Witho ut Coma (HCC); [address] [place] [address] Debility [R53.81 (ICD-10-CM) ]; [place], [place] Decline Functi onal Status [R53.81 (ICD-10-CM)]; [phone] Thrombocytopenia (HCC); [phone] Ascites Chronic ; Cirrhosis Alcoh olic (HCC); [...] How often do you attend worship or Patient refused 2021 episcopalian services? Do you belong to any clubs or No 02/10/2022 organizations such as worship groups, unions, fraternal [...] LOCOMOTIVE FIRER/FIREMAN documented as of this encounter Last Filed [...] evaluated Catia Carias today and provided counseling fdrz-ms-fixg at bedside. I personally reviewed the discharge [...] AM CDT DISCHARGE SUMMARY BRIEF OVERVIEW Hospital: [facility] Discharge Provider: Ervin Mazariegos M.D. Primary Team: [facility] Medicine 3 ([facility]) Primary Care Providers: Ana Red P.A.-C. (General) [address] [facility] [place] [phone] Primary Care Provider Primary Care Provider Other [...] hospital problems. * DISCHARGE DISPOSITION Home-Health Care [facility] [6] ACTIVE ISSUES REQUIRING FOLLOW UP Recommendations: [...] Appointments 01/28/2022 10:00 AM TXP PRE LIVER 01 [facility] 10 Transplant 01/28/2022 2:00 PM LAB 01 [facility] Laboratory Medicine 01/28/2022 2:20 PM LAB 01 [facility] Laboratory Medicine 01/28/2022 2:45 PM Matthew Jerome M.B.B.S., M.D. Gastroenterology and Hepatology 02/05/2022 3:15 PM ROCH 02 01 Radiology 02/10/2022 3:00 PM TXP PSYCHIATRY 01 [facility] Transplant 02/12/2022 9:20 AM LAB BLOOD [facility] Laboratory Medicine 02/12/2022 9:30 AM LAB URINE CONTAINER [facility] Laboratory Medicine 02/12/2022 11:00 AM TXP [...] Unspecified Without Coma (HCC) HOSPITAL COURSE Ms. Carais is a 31-year-old female with a past [...] Jerome - Ask transplant clinic for a licensed social worker or director of casework department - Continue weekly AA meetings. Find a [...] kidney function You were discharged from the [facility] Medicine 3 ([facility]) Service. Please identify this service name if you call with questions after hospitalization. [facility] experts agree: You should get a COVID-19 vaccine as soon as it's available to you. The vaccines that we???re recommending have been approved for safe use. [facility] will continue to coordinate with state and local governments on future vaccine distribution phases. o If your primary care provider is at [facility] and you plan to receive your vaccination at [facility], please ensure that you have activated your Patient Portal at [employer] to allow [facility] to communicate to you about the scheduling [...] Discharge information provided on 01/27/2022 Contact information: [facility], 5 Jose Raul, documented in this [...] 01/28/2022 3:15 PM CDT T Medicine 3 ([facility]) PROGRESS NOTE SUBJECTIVE Christelle says she is [...] / PLAN Ms. Carias is hospitalized on [facility] Medicine 3 ([facility]) for evaluation and management of Failure Renal [...] 40mg # Dispo - Please provide a non-[facility] home health order for resumption of previous services by home health care for mcfp once a week medication management on the [...] with expected discharge date Plan discussed with [facility] Medicine 3 ([facility]) Electrical Worker, Ervin Osorio M.D., who was present during judd portions of the evaluation today. Please page the [facility] Medicine 3 ([facility]) service pager at [phone] with any questions. T Carlotta Rader, DELTA, [...] +1 generalized, +1-2 BLE edema noted per banner painter. Estimated Needs: Total Calorie Needs: 3186-2159 calories/day Method to Estimate Energy Needs: Mueller-[place] (Basal to Basal + 20%) Weight Used [...] about patient's nutritional care please contact pager [phone] on weekdays or [phone] on weekends/holidays. Ervin Mazariegos M.D. - 01/28/2022 1:19 PM CDT [facility] Medicine 3 ([facility]) Supervisory Note I have seen and assessed [...] our team's planof care. Counseling was provided yeov-dz-yrff at bedside regarding the plan of care as stated above. I personally spent over half of a total 25 minutes in counseling and coordination of care as documented above. Sweetie Greer P.T., D.P.T. - 01/28/2022 10:00 AM CDT Physical Therapy Inpatient Treatment Note SUBJECTIVE Patient's Name: Catia Moriah Carias Referring/Attending: Ervin Mazariegos M.D. Medical Diagnosis: Cirrhosis Alcoholic (HCC) [K70.30] Failure Renal Acute (Acute Kidney Injury) (HCC) [N17.9] Ascites [R18.8] Alcohol Use Unspecified With Unspecified Alcohol Induced Disorder (HCC) [F10.99] Hepatic Failure Unspecified Without Coma (HCC) [K72.90] Reason for Referral: PT Evaluate and Treat general acute Onset Date: 01/20/22 Payor: [facility] [place]ARE / Plan: [facility] [place] / Product [...] Modified independent Assessment/Delivery: Assessed Toilet Transfers Comments: Rou-nw-rqitl transfers as above; patient initially requesting therapist [...] needs met and questions answered. Outcome Measures [facility] Inpatient Short Form: -[facility] Basic Mobility (V.2) How much [...] 3-5 steps with a railing?: A Little -[facility] Basic Mobility (V.2) Raw Score: 23 -[facility] Basic Mobility (V.2) Standardized Score: 50.88 Interpretation: Clinicians answer the -[facility] Inpatient Short Form based on [...] min Total Treatment Time (min): 20 min ([id number]) Allie Greer P.T., D.P.T. Harlan Monterroso, RSumaN. - 01/28/2022 7:22 AM CDT SUBJECTIVE Referral Data Discharge Planning: Reconnection of [facility] patient declined additional resources. Anticipated Needs Home [...] Selected Services Address Phone Fax Patient Preferred [facility] [address] [facility] [phone] -- Contact: Intake NURSING: - Complete documentation in the Discharge Navigator including Nursing Report Info and Facility/NextLevel of Care Info - Call report and arrange for the patient???s first visit. - Send required packet of dismissal information with patient, including After Visit Summary and advance directive. PRIMARY SERVICE: - Please provide a non-[facility] home health order for resumption of previous services by home health care for mcfp once a week medication management on the [...] Guan M.D. - 01/27/2022 1:08 PM CDT [facility] Medicine 3 ([facility]) Supervisory Note I have seen and assessed [...] team's plan of care. Counseling was provided nijp-ib-dfnj at bedside regarding the plan of care as stated above. I personally spent over half of a total 25 minutes in counseling and coordination of care as documented above. Gerda Shirley M.D., M.S. - 01/27/2022 11:56 AM CDT [facility] 3 ([facility]) PROGRESS NOTE SUBJECTIVE Patient had EGD with [...] / PLAN Ms. Carias is hospitalized on [facility] 3 ([facility]) for evaluation and management of Failure Renal [...] 40mg # Dispo - Please provide a non-[facility] home health order for resumption of previous services by home health care for mcfp once a week medication management on the [...] with expected discharge date Plan discussed with [facility] Medicine 3 ([facility]) Electrical Worker, Ervin Osorio M.D., who was present during judd portions of the evaluation today. Please page the [facility] Medicine 3 ([facility]) service pager at [phone] with any questions. Nora Kelly Pharm.D., R.Ph. [...] reticulocyte count (6.67%). Haptoglobin (<14). Nora Kelly Pharm.D., R.Ph. Ervin Mazariegos M.D. - 01/26/2022 2:01 PM CDT T Medicine 3 ([facility]) Supervisory Note I have seen and assessed [...] our team's planof care. Counseling was provided cpwk-qf-krpw at bedside regarding the plan of care [...] note pulled forward below from 01/21/2022 by Record Maker Virginia Handley M.S., R.N. SUBJECTIVE Referral Data Discharge Planning: Reconnection of [facility] patient declined additional resources. Anticipated Needs Home [...] Selected Services Address Phone Fax Patient Preferred [facility] [phone], [facility] [phone] -- Contact: Intake NURSING: - Complete documentation in the Discharge Navigator including Nursing Report Info and Facility/NextLevel of Care Info - Call report and arrange for the patient???s first visit. - Send required packet of dismissal information with patient, including After Visit Summary and advance directive. PRIMARY SERVICE: - Please provide a non-[facility] home health order for resumption of previous services by home health care for mcfp once a week medication management on the [...] 01/26/2022 6:12 AM CDT [facility] Medicine 3 ([facility]) PROGRESS NOTE SUBJECTIVE Ms. Carias reports feeling [...] / PLAN Ms. Carias is hospitalized on [facility] 3 ([facility]) for evaluation and management of Failure Renal [...] 40mg # Dispo - Please provide a [facility] home health order for resumption of previous services by home health care for mcfp once a week medication management on the [...] with expected discharge date Plan discussed with [facility] Medicine 3 ([facility]) Electrical Worker, Joshua Ayala M.D., who was present during judd portions of the evaluation today. Please page the [facility] Medicine 3 ([facility]) service pager at [phone] with any questions. Rhea Silver MD Nora [...] 01/25/2022 6:06 AM CDT [facility] Medicine 3 ([facility]) PROGRESS NOTE SUBJECTIVE Ms. Carias reports significant [...] / PLAN Ms. Carias is hospitalized on [place] [address] ([facility]) for evaluation and management of Failure Renal [...] with expected discharge date Plan discussed with [facility] Medicine 3 ([facility]) Electrical Worker, Joshua Ayala M.D., who was present during judd portions of the evaluation today. Please page the [facility] Medicine 3 ([facility]) service pager at [phone] with any questions. Rhea Silver MD Associated attestation - Joshua Johnson M.D. - 01/25/2022 3:45 PM CDT I saw and evaluated the patient, participating in the judd portions of the service. I reviewed the resident/fellow???s note. I agree with the resident/fellow???s findings and plan. Yue Silver M.D. - 01/24/2022 7:11 AM CDT [facility] Medicine 3 ([facility]) PROGRESS NOTE SUBJECTIVE Ms. Carias reports feeling [...] / PLAN Ms. Carias is hospitalized on [place] [address] ([facility]) for evaluation and management of Failure Renal [...] Overload Hemoglobin reached kenia of 6.0 on 9/22, requiring 1U pRBC with appropriate response. Currently [...] with expected discharge date Plan discussed with [facility] Medicine 3 ([facility]) Electrical Worker, Joshua Ayala M.D., who was present during judd portions of the evaluation today. Please page the [facility] Medicine 3 ([facility]) service pager at [phone] with any questions. Rhea Silver MD Associated [...] Internal Medicine, PGY-1 Medicine 3 Service Pager [phone] Migue Spencer - 01/23/2022 11:24 AM CDT [facility] Medicine 3 ([facility]) PROGRESS NOTE SUBJECTIVE Ms. Carias did well [...] / PLAN Ms. Carias is hospitalized on [place] [address] ([facility]) for evaluation and management of Failure Renal [...] with expected discharge date Plan discussed with [facility] Medicine 3 ([facility]) Electrical Worker, Joshua Ayala M.D., who was present during judd portions of the evaluation today. Please page the [facility] Medicine 3 ([facility]) service pager at [phone] with any questions. Migue Spencer Third-Year Medical Student [facility] Joshua Francois M.D. - 01/23/2022 10:29 [...] had any bowel movements despite lactulose treatment. [place] making test was completed 37 seconds indicating [...] Care Management Consult completed by SOPHIA Ramsey, HEAD ATHLETIC TRAINER/STRENGTH COACH on 01/12/22. SUBJECTIVE Referral Data Discharge Planning: Reconnection of [facility] patient declined additional resources. Anticipated Needs Home [...] Selected Services Address Phone Fax Patient Preferred [facility] [address], [facility] [phone] -- Contact: Intake NURSING: - Complete documentation in the Discharge Navigator including Nursing Report Info and Facility/NextLevel of Care Info - Call report and arrange for the patient???s first visit. - Send required packet of dismissal information with patient, including After Visit Summary and advance directive. PRIMARY SERVICE: - Please provide a non-[facility] home health order for resumption of previous services by home health care for mcfp once a week medication management on the [...] 01/20/2022 11:45 PM CDT T Medicine 3 ([facility]) Senior Admission Note SUBJECTIVE CHIEF COMPLAINT: MOSHE [...] will be formally staffed with the supervising clinical sales consultant in the morning. Please page the [facility] 3 ([facility]) service pager with any questions. Kathy Ibrahim [...] Treat general acute Onset Date: 01/20/22 Payor: [facility] [place] / Plan: [facility] CARE RESTRICTED PLAN / Product Type: Medicaid [...] Pretransplant Recipient Evaluation Exam Deficiency Vitamin A Chcf Use Of Opiate Analgesic Nicotine Dependence Cigarettes [...] >1 year Prior Mobility/Functional Transfers Level of [place]: Modified independent Gait Devices/Wheelchair Used: Front wheeled [...] needs met and questions answered. Outcome Measures [facility] Inpatient Short Form: -[facility] Basic Mobility (V.2) How much [...] 3-5 steps with a railing?: A Lot -[facility] Basic Mobility (V.2) Raw Score: 19 AM-PAC Basic Mobility (V.2) Standardized Score: 42.48 Interpretation: Clinicians answer the -[facility] Inpatient Short Form based on [...] Inpatient Appointment: 01/28/22 PT Plan Comments: Progress ozu-eb-rnmmr transfers; progress ambulation; stair negotiation Treatment interventions may include: Treatment/Interventions: Therapeutic functional activity, Gait training, Self- care/home management Billing: Time Spent with Patient Evaluations PT Eval - Mod Complexity: 10 min Therapeutic Interventions Therapeutic Activity (min): 16 min Time Tracking Total Timed Units (min): 16 min Total Treatment Time (min): 26 min ([id number]; Co-evaluation and treatment session with OT in [...] OT General Acute Onset Date: 01/20/22 Payor: [facility] [place] / Plan: 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 Inpatient Short Form: Putting on and [...] Standardized Score: 42.03 Interpretation: Clinicians answer the [facility] Inpatient Short Form based on observed [...] in shower, Grab bar(s) by toilet (Long-handled philanthropy officer; Long-handled sponge) Barriers to Discharge Home: Current [...] a safe environment Outcome: Progressing Liberty Carty M.S. R.NSuma - 01/21/2022 6:40 PM CDT Shift [...] the day. Transferring using GB/pivot w/ 1-2. [facility] setup by CM. Patient states all needs [...] Care for this patient was transferred to [place] at shift change. Please see associated documentation [...] an outpatient by her providers in the [place] area. She was advised to come to [...] U Negative Ketone, POCT, U Trace(!) Specific [place], POCT, U 1.015 Blood, POCT, U Negative [...] 01/20/2022 8:06 PM CDT Pt presents to [place] [address] with back pain, rib cage pn, and [...] Transplant Matthew Jerome M .B.B.S., M.D. [address] [place] [phone] 2 Rain Reyes R.N. [address] [place] [address] [phone] Telemedicine Trans[facility] 2 Brigid noyola M.D. [address] [place] [address] [phone] Office Visit [facility] Internal [facility], 2 Solitario Perez P.A.-C. [address] [place] [phone] Lab Laboratory Medicine Karin, Olinda Gannon M.D., Ph.D. [address] [place] [address] [phone] Lab Laboratory Medicine Olinda Frazier M.D., Ph.D. [address] [place] [address] [phone] Office Visit Transplant Karin, 2 Adeline Gannon M.D., Ph.D. [address] [place] [phone] Office Visit Family Medicine BillyRobbin baum [address] [place] [phone] Appointment Radiology QueenieNewar 2 Y, M.B.B.SSuma, Lilian [address] [place] [phone] Appointment Gastroenterology demian Silver, 2 Hepatology Yue Burciaga M.D. [address] [place] [address] [phone] Office Visit Gastroenterology and LuisNew abdular 2 Hepatology Jennifer M.B.B.SLilian Moise [address] [place] [phone] Appointment Radiology LuisNew abdular 2 Y M.B.B.SSuma, Lilian [address] [place] [phone] [facility] Gastroenterology and LuisMatthew abdul Cirrhos is Alcoholic (HCC) 2 Encounter Hepatology Jennifer M.B.B.SSuma, Lilian [address] [place] [phone] Anesthesia Event Gastroenterology and Rl, 2 Hepatology Ervin Burgos M.D. [address] [place] [phone] Surgery Gastroenterology and Mousa, Matthew ESOPHAG OGASTRODUODENOSCOPY 2 Hepatology Tyrell Rodriguez M.D. [address] [place] [phone] Pending Results Name Type Priority Associated Diagnoses Date/Ti me Prepare Red Blood Blood Bank Routine 01/22/2022 [...] Cirrhosis Alc oholic (HCC) 03/20/2022 8:45 AM DIESEL LOCOMOTIVE FIRER/FIREMAN Hypertension Portal (HCC) Scheduled Referrals Name Type Priority Associated Diagnoses Order S chedule Non-[facility] Outpatient Referral Routine Cirrhosis Alcoholic Ordered: [...] with Differential, Blood (01/29/2022 4:39 AM CDT) [facility] Method Time Signature Hemoglobin 8.0 (L) 11.6 [...] [facility] [address] [place], [place] [address] [facility] [place] [address] Laboratories-[facility] [address] [facility] (ABNORMAL) Basic Metabolic Panel (01/29/2022 4:39 AM [...] [facility] [address] [place], [place] [address] [facility] [place] [address] [facility] [address] [facility] (ABNORMAL) Hematocrit (01/28/2022 1:36 PM CDT) P [...] [facility] [address] [place], [place] [address] [facility] [place] [address] Laboratories-[facility] [address] [place] Lower Extremity Veins Bilateral (01/28/2022 10:46 [...] man agement can be found on the [employer] site. Link [email or web address]/topic/clinical-[email or web address]/[email or web address] Procedure Note Migue Talavera M.D. - 01/28/2022Form [...] man agement can be found on the [employer] site. Link [email or web address]/clinical-answers/[email or web address] 62027 IMPRESSION: 1. Negative for acute DVT within [...] are unchanged. Procedure Note Jaylen Moctezuma M.B.B.S., MCee. - EXAM: CT ABDOMEN PELVIS WITHOUT IV [...] with Estimated GFR (01/28/2022 5:28 AM CDT) athologist Signature eGFR by 47 (L) >60 [...] [facility] - [address] [place], [place] [address] [facility] [place] [address] Laboratories-[facility] [address] (ABNORMAL) Basic Metabolic Panel (01/28/2022 5:28 AM CDT) athologist Signature Potassium, S 4.2 [...] M.S. LAB BLOOD ADD-ON Performing Organization Address City/State/[facility] Code Phon e Number [facility] - [address] [place] [address] 05 [facility] [place] [address] Laboratories-[facility] 200 [facility] (ABNORMAL) CBC without Differential (01/28/2022 5:28 AM CDT) [facility] Method Time Signature Hemoglobin 7.4 (L) 11.6 [facility] [address] [place], [place] [address] [facility] [place] [address] Laboratories-[facility] [address] [place] Paracentesis with [...] with Differential, Blood (01/27/2022 4:47 AM CDT) [facility] Method Time Signature Hemoglobin 7.4 (L) 11.6 [...] Number [facility] - [address] [place] [address] 559 05 [facility] [place] [address] Laboratories-[address] Basic Metabolic Panel (01/27/2022 4:47 AM CDT) [...] [facility] [address] [place], [place] [address] 05 [facility] [place] [address] Laboratories-[facility] [address] [facility] (ABNORMAL) Cystatin C with Estimated GFR (01/27/2022 4:43 AM CDT) P athologist Signature eGFR by 39 (L) >60 01/27/2022 DTL Cystatin C mL/min/BSA 7:57 AM CDT Comment: [...] - 1.03 mg/L 01/27/2022 7:57 AM CDT DTL Specimen Anatomical Collection Method Collection Time Receive d Time (Source) Location / / Volume Laterality Blood (Blood, 01/27/2022 4:43 AM 01/28/20 7:35 Venous) CDT AM CDT Darrick Santillan LAB BLOOD ADD-ON Performing Organization Address City/[facility] Phon e Number [facility] - [address] [place], [place] [address] 05 [facility] [place] [address] Laboratories-[facility] 200 [facility] (ABNORMAL) Coagulation Factor XI Activity Assay (01/26/2022 6:58 PM CDT) P athologist Signature Coag Factor XI 18 (L) 55 - 150 % 01/27/2022 DTL Assay, P 12:47 PM CDT Comment: ----ADDITIONAL INFORMATION---- This test has been modified from the resaca 1Ringacturer's instructions. Its performance characteri stics were determined by [facility] in a manner co nsistent with CLIA requirements. This test has not bee n cleared or approved by the U.S. Food and Drug Admin istration. Specimen Anatomical Collection Method Collection Time Receive d Time (Source) Location / / Volume Laterality Blood 01/26/2022 6:58 PM CDT 11:30 AM CDT Darrick Santillan LAB BLOOD ADD-ON Performing Organization Address City/[facility] Phon e Number [facility] - [address] [place], [place] [address] 05 [facility] [place] [address] Laboratories-[facility] 200 [facility] (ABNORMAL) Coagulation Factor XII Activity Assay (01/26/2022 6:58 PM CDT) P athologist Signature Coag Factor XII 32 (L) 55 - 180 % 01/27/2022 DTL Assay, P 12:47 PM CDT Comment: ----ADDITIONAL INFORMATION---- This test has been modified from the resaca ufacturer's instructions. Its performance characteri stics were determined by [facility] in a manner co nsistent with CLIA requirements. This test has not bee n cleared or approved by the U.S. Food and Drug Admin istration. Specimen Anatomical Collection Method Collection Time Receive d Time (Source) Location / / Volume Laterality Blood 01/26/2022 6:58 PM 2 CDT 11:30 AM CDT Darrick Santillan LAB BLOOD ADD-ON Performing Organization Address City/[facility] Phon e Number [facility] - [address] [address] [place] [address] [facility] 200 [facility] (ABNORMAL) Coagulation Factor IX Activity Assay (01/26/2022 6:58 PM CDT) athologist Signature Coag Factor IX 29 (L) 65 - 140 % 01/27/2022 DTL Assay, P 12:47 PM CDT Comment: ----ADDITIONAL INFORMATION---- This test has been modified from the resaca 1Ringacturer's instructions. Its performance characteri stics were determined by [facility] in a manner co nsistent with CLIA requirements. This test has not bee n cleared or approved by the U.S. Food and Drug Admin istration. Specimen Anatomical Collection Method Collection Time Receive d Time (Source) Location / / Volume Laterality Blood 01/26/2022 6:58 PM 2 CDT 11:30 AM CDT Darrick Santillan LAB BLOOD ADD-ON Performing Organization Address City/[facility] Phon e Number [facility] - [address] [place], [place] [address] 05 [place] [address] [facility] 200 [facility] Coagulation Factor VIII Activity Assay (01/26/2022 6:58 PM CDT) P athologist Signature Coag Factor 93 55 - 200 % 01/27/2022 DTL VIII Activity 12:19 PM CDT Assay, P Comment: ----ADDITIONAL INFORMATION---- This test has been modified from the resaca ufacturer's instructions. Its performance characteri stics were determined by [facility] in a manner co nsistent with CLIA requirements. This test has not bee n cleared or approved by the U.S. Food and Drug Admin istration. Specimen Anatomical Collection Method Collection Time Receive d Time (Source) Location / / Volume Laterality Blood 01/26/2022 6:58 PM 2 CDT 11:30 AM CDT Darrick Santillan LAB BLOOD ADD-ON Performing Organization Address [facility] Phon e Number [facility] - [address] [place], [place] [address] 05 [facility] [place], [place] [id number] [place] [address]-[facility] 200 [facility] (ABNORMAL) Coag Factor X Assay, P (01/26/2022 6:58 PM CDT) P athologist Signature Coag Factor X 29 (L) 70 - 150 % 01/27/2022 DTL Assay, P 12:19 PM CDT Comment: ----ADDITIONAL INFORMATION---- This test has been modified from the resaca 1Ringacturer's instructions. Its performance characteri stics were determined by [facility] in a manner co nsistent with CLIA requirements. This test has not bee n cleared or approved by the U.S. Food and Drug Admin istration. Specimen Anatomical Collection Method Collection Time Receive d Time (Source) Location / / Volume Laterality Blood 01/26/2022 6:58 PM 2 CDT 11:30 AM CDT Darrick Santillan LAB BLOOD ADD-ON Performing Organization Address City/[facility]/ZIP Code Phon e Number [facility] - [address] [place], [place] [address] 05 [facility] [place], [place] [address] [place] [address]-[facility] 200 [facility] (ABNORMAL) Coagulation Factor VII Activity Assay (01/26/2022 6:58 PM CDT) P athologist Signature Coag Factor VII 13 (L) 65 - 180 % 01/27/2022 DTL Assay, P 12:19 PM CDT Comment: ----ADDITIONAL INFORMATION---- This test has been modified from the resaca ufacturer's instructions. Its performance characteri stics were determined by [facility] in a manner co nsistent with CLIA requirements. This test has not bee n cleared or approved by the U.S. Food and Drug Admin istration. Specimen Anatomical Collection Method Collection Time Receive d Time (Source) Location / / Volume Laterality Blood 01/26/2022 6:58 PM 2 CDT 11:30 AM CDT Darrick Santillan LAB BLOOD ADD-ON Performing Organization Address [facility] Phon e Number [facility] - [address] [place] [address] Laboratories-[facility] 200 [facility] (ABNORMAL) Coagulation Factor V Activity Assay (01/26/2022 6:58 PM CDT) athologist Signature Coag Factor V 18 (L) 70 - 165 % 01/27/2022 DTL Assay, P 12:19 PM CDT Comment: ----ADDITIONAL INFORMATION---- This test has been modified from the man ufacturer's instructions. Its performance characteri stics were determined by [facility] in a manner co nsistent with CLIA requirements. This test has not bee n cleared or approved by the U.S. Food and Drug Admin istration. Specimen Anatomical Collection Method Collection Time Receive d Time (Source) Location / / Volume Laterality Blood 01/26/2022 6:58 PM 2 CDT 11:30 AM CDT Darrick Santillan LAB BLOOD ADD-ON Performing Organization Address City/[facility] Phon e Number [facility] - [address] [place], [place] [address] 05 [facility] [place] [address] Laboratories-[address] (ABNORMAL) Coagulation Factor II Activity Assay (01/26/2022 6:58 PM CDT) athologist Signature Coag Factor II 28 (L) 75 - 145 % 01/27/2022 DTL Assay, P 12:19 PM CDT Comment: ----ADDITIONAL INFORMATION---- This test has been modified from the resaca ufacturer's instructions. Its performance characteri stics were determined by [facility] in a manner co nsistent with CLIA requirements. This test has not bee n cleared or approved by the U.S. Food and Drug Admin istration. Specimen Anatomical Collection Method Collection Time Receive d Time (Source) Location / / Volume Laterality Blood 01/26/2022 6:58 PM 2 CDT 11:30 AM CDT Darrick Santillan LAB BLOOD ADD-ON Performing Organization Address [facility] Phon e Number [facility] - [address] [address] [facility]-[address] Reptilase Time, Plasma (01/26/2022 6:58 PM CDT) P athologist Signature Reptilase Time, 21.0 14.0 - 23.9 01/27/2022 DT P sec 11:03 AM CDT Comment: ----ADDITIONAL INFORMATION---- This test has been modified from the resaca cecilacturer's instructions. Its performance characteri stics were determined by [facility] in a manner co nsistent with CLIA requirements. This test has not bee n cleared or approved by the U.S. Food and Drug Admin istration. Specimen Anatomical Collection Method Collection Time Receive d Time (Source) Location / / Volume Laterality Blood 01/26/2022 6:58 PM 2 7:12 CDT AM CDT Darrick Santillan LAB BLOOD ADD-ON Performing Organization Address City/[facility] Phon e Number [facility] - [address] [place], [place] 55 05 [place] [address] PT Mix 1:1 (01/26/2022 6:58 PM CDT) P athologist Signature PT Mix 1:1 11.8 9.4 - 12.5 01/27/2022 DTL sec 11:04 AM CDT Comment: ----ADDITIONAL INFORMATION---- This test has been modified from the resaca cecilacturer's instructions. Its performance characteri stics were determined by [facility] in a manner co nsistent with CLIA requirements. This test has not bee n cleared or approved by the U.S. Food and Drug Admin istration. Specimen Anatomical Collection Method Collection Time Receive d Time (Source) Location / / Volume Laterality Blood 01/26/2022 6:58 PM 2 7:12 CDT AM CDT Darrick Santillan LAB BLOOD ADD-ON Performing Organization Address City/[facility]/ZIP Code Phon e Number [facility] - [address] [place], [place] [address] [facility] [place] [address] Laboratories-[facility] 200 [facility] APTT Mix 1:1 (01/26/2022 6:58 PM CDT) athologist Signature APTT Mix 1:1 28 25 - 37 sec 01/27/2022 DTL 11:04 AM CDT Comment: ----ADDITIONAL INFORMATION---- This test has been modified from the doug last's instructions. Its performance characteri stics were determined by [facility] in a manner co nsistent with CLIA requirements. This test has not bee n cleared or approved by the U.S. Food and Drug Admin istration. Specimen Anatomical Collection Method Collection Time Receive d Time (Source) Location / / Volume Laterality Blood 01/26/2022 6:58 PM 2 7:12 CDT AM CDT Darrick Santillan LAB BLOOD ADD-ON Performing Organization Address City/[facility]/ZIP Code Phon e Number [facility] - [address] [place], [place] [address] [facility] [place] [address] Laboratories-[facility] 200 [facility] Dilute Russells Viper Venom Time (DRVVT) (01/26/2022 6:58 PM CDT) athologist Signature DRVVT Screen 0.85 <1.20 ratio 01/27/2022 DTL Ratio 11:04 AM CDT Specimen Anatomical Collection Method Collection Time Receive d Time (Source) Location / / Volume Laterality Blood 01/26/2022 6:58 PM 2 7:12 CDT AM CDT Darrick Santillan LAB BLOOD ADD-ON Performing Organization Address City/[facility]/ZIP Code Phon e Number [facility] - [id number] [place] [address] (ABNORMAL) PT-Fibrinogen (01/26/2022 6:58 PM CDT) athologist Signature PT-Fibrinogen, 241 (L) 261 - 595 01/27/2022 DTL P mg/dL 9:36 AM CDT Specimen Anatomical Collection Method Collection Time Receive d Time (Source) Location / / Volume Laterality Blood 01/26/2022 6:58 PM 2 7:12 CDT AM CDT Darrick DanielSSuma LAB BLOOD NON ADD-ON Performing Organization Address City/[facility]/ZIP Code Phon e Number [facility] - [address] (ABNORMAL) Soluble Fibrin Monomer (01/26/2022 6:58 PM CDT) athologist Signature Soluble Fibrin 165 (H) <=8 mcg/mL 01/27/2022 DTL Monomer 10:57 AM CDT Comment: ----ADDITIONAL INFORMATION---- This test was developed and its performa nce characteristics determined by [facility] in a manner co nsistent with [...] [facility] - [address] (ABNORMAL) DIC/ICF Profile (01/26/2022 6:58 PM [...] Its performance characteri stics were determined by [facility] in a manner co nsistent with [...] 01/28/20 7:12 Venous) CDT AM CDT Narrative [facility] - 01/27/2022 5:26 PM CDT Specimen Information: Specimen ID: [id number] Specimen Type: Blood Specimen Collection Start Date: 01/27/20 ??6:58 PM Specimen Received Date: 01/27/2022 ??7:1 2 AM Specimen ID: [id number] Specimen Type: Blood Specimen Collection Start Date: 01/27/20 ??6:58 PM Specimen Received Date: 01/27/2022 ??7:1 2 AM Specimen ID: [id number] Specimen Type: Blood Specimen Collection Start Date: 01/27/20 ??6:58 PM Specimen Received Date: 01/27/2022 ??7:1 2 AM Specimen ID: [id number] Specimen Type: Blood Specimen Collection Start Date: 01/27/20 ??6:58 PM Specimen Received Date: 01/27/2022 ??7:1 2 AM Specimen ID: [id number] Specimen Type: Blood Specimen Collection Start Date: 01/27/20 ??6:58 PM Specimen Received Date: 01/27/2022 ??7:1 2 AM Darrick Santillan LAB BLOOD NON ADD-ON Performing Organization Address City/[facility]/ZIP Code Phon e Number [facility] - [address] [place], [place] [address] 05 [place] [address] [facility] [address] (ABNORMAL) Copper (01/26/2022 6:57 PM CDT) athologist Signature Copper, S 58 (L) 77 - 206 01/27/2022 SDSC mcg/dL 11:02 AM CDT Comment: ----ADDITIONAL INFORMATION---- This test was developed and its performa nce characteristics determined by [facility] in a manner consistent with CLIA [...] [address] [place], [place] [address] [facility] [place] [address] [facility] [address] [place] Zinc (01/26/2022 6:57 PM CDT) P athologist Signature Zinc, S 66 60 - 106 01/27/2022 SDSC mcg/dL 11:02 AM CDT Comment: ----ADDITIONAL INFORMATION---- This test was developed and its performa nce characteristics determined by [facility] in a manner consistent with CLIA [...] [address] [place], [place] [address] SUPPORT CENTER [facility] Laboratories - [place], [place] [id number] [place] [address] [place] Upper GI Endoscopy (01/26/2022 3:18 PM CDT) Specimen (Source) Anatomical Collection Method Collection Time Re ceived Time Location / / Volume Laterality 01/26/2022 3:18 PM CDT [facility]ressions [facility] 01/26/[facility] 10:50 PM CDT Post-op Diagnoses: ? - Large (> 5 mm) esophageal varic es with no bleeding and no stigmata of ? recent bleeding. Banded x 6. ? - Portal hypertensive gastropathy (non-bleeding). ? - No specimens collected. Narrative [facility] - 01/26/2022 10:50 PM CDT Otto 6 [...] No immedia te complications. 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 pro cedure, including non-judd portions. Andreas Price MD 01/26/2022 10:50:15 PM This report has been signed electronical ly. Number of Addenda: 0 Huang Diamond M.D. GI PROCEDURE ORDERABLES Performing Organization Address City/State/ZIP Code Phon e Number [facility] [place] Transfuse Fresh Frozen Plasma :INR >2: Invasive proc scheduled; 180 mL/hr (01/26/2022 11:20 AM CDT) Darrick DanielSSuma BLOOD TRANSFUSION ORDERABLES Transfuse Fresh Frozen Plasma :INR >2: Invasive proc scheduled; 180 mL/hr, 2 Units (01/26/2022 11:20 AM CDT) Darrick DanielSSuma BLOOD TRANSFUSION ORDERABLES (ABNORMAL) Hematocrit (01/26/2022 11:16 AM CDT) P athologist Signature Hematocrit 21.3 (L) 35.5 - 44.9 01/26/2022 STMA % 11:25 AM CDT Specimen Anatomical Collection Method Collection Time Receive d Time (Source) Location / / Volume Laterality Blood (Blood, 01/26/2022 11:16 01/26/2022 Venous) AM CDT 11:22 AM CDT Gerda Hull M.D., M.SSuma LAB BLOOD ADD-ON Performing Organization Address City/[facility]/ZIP Code Phon e Number [facility] - [address] [place], [place] [address] [facility] [place] [address] Laboratories-[facility] 200 [facility] (ABNORMAL) Hemoglobin (01/26/2022 11:16 AM CDT) P athologist Signature Hemoglobin 7.4 (L) 11.6 - 15.0 01/26/2022 STMA g/dL 11:25 AM CDT Specimen Anatomical Collection Method Collection Time Receive d Time (Source) Location / / Volume Laterality Blood (Blood, 01/26/2022 11:16 01/26/2022 Venous) AM CDT 11:22 AM CDT Gerda Hull M.D., M.SSuma LAB BLOOD ADD-ON Performing Organization Address City/State/ZIP Code Phon e Number [facility] - [address] [place], [place] [address] [facility] [place] [place] [address] Laboratories-[facility] [address] Transfuse Emergency Released Red Blood Cells (Uncrossmatched) (01/26/2022 9:59 AM CDT) Darrick CheryB.SSuma BLOOD TRANSFUSION ORDERABLES Transfuse Emergency Released Red Blood Cells (Uncrossmatched) : 1 Units (01/26/2022 9:59 AM CDT) Darrick CheryB.S. BLOOD TRANSFUSION ORDERABLES Transfuse Fresh Frozen Plasma :INR >2: Invasive proc scheduled; 180 mL/hr (01/26/2022 7:58 AM CDT) Darrick CheryB.S. BLOOD TRANSFUSION ORDERABLES ECG 12 Lead (01/26/2022 5:05 AM CDT) P athologist Signature Ventricular Rate 96 BPM MUSE ECG/Min AL Interval 166 ms MUSE QRSD Interval 88 ms MUSE QT Interval 364 ms MUSE QTC Interval 460 ms MUSE P [place] 56 degrees MUSE R [place] 50 degrees MUSE T Wave [place] 32 degrees MUSE Specimen Anatomical Collection Method [...] Silver M.D. ECG ORDERABLES Performing Organization Address City/[facility]/ZIP Code Phon e Number MUSE MUSE [...] M.D. LAB BLOOD ADD-ON Performing Organization Address City/State/[facility] Code Phon e Number [facility] - [address] [place] [address] 05 [facility] [place] [address] Laboratories-[facility] 200 [facility] (ABNORMAL) Basic Metabolic Panel (01/26/2022 4:53 AM [...] [facility] [address] [place], [place] [address] [facility] [place] [address] Laboratories-[facility] [address] [facility] (ABNORMAL) CBC with Differential, Blood (01/26/2022 4:53 AM CDT) [facility] gist Method Time Signature Hemoglobin 6.3 (L) [...] 22 6:05 Venous) CDT AM CDT Darrick DanielSSuma LAB BLOOD ADD-ON Performing Organization Address City/[facility] Code Phon e Number [facility] - [address] [place] [address] Type and Screen (with reflex Antibody [...] 22 8:55 Venous) CDT AM CDT Darrick DanielSSuma LAB BLOOD BANK TEST ORDERABL ES Performing Organization Address City/[facility]/ZIP [facility] Phon e Number [facility] - [address] HIV-1/-2 Ag and Ab Screen, Plasma (01/25/2022 3:36 PM CDT) P athologist Signature HIV-1/-2 Ag Negative Negative 01/26/2022 [facility] and Ab Screen, 11:53 AM CDT [...] - BLOOD ORD ERABLES Performing Organization Address City/[facility] Phon e Number [facility] [address] [facility] [address] [place], [place] [address] [facility] [place], [place] [id number] [place], [place] [address] [place] Transfuse Red Blood Cells : (01/25/2022 1:08 PM CDT) Darrick Santillan BLOOD TRANSFUSION ORDERABLES Transfuse Red Blood Cells : , 1 Units (01/25/2022 1:08 PM CDT) Darrick Santillan BLOOD TRANSFUSION ORDERABLES (ABNORMAL) AST (Aspartate Aminotransferase) (01/25/2022 9:56 AM CDT) [facility] Sai [employer] Method Time Signature Aspartate 62 (H) 8 - 43 01/25/2022 DTL Aminotransferase U/L 10:32 AM CDT (AST), P Specimen Anatomical Collection Method Collection Time Receive d Time (Source) Location / / Volume Laterality Blood 01/25/2022 9:56 AM 9:56 CDT AM CDT Darrick Santillan LAB BLOOD ADD-ON Performing Organization Address City/[facility] Phon e Number [facility] - [address] [place] [address] 05 [place] [address] [facility] 200 [facility] (ABNORMAL) CBC with Differential, Blood (01/25/2022 5:35 AM CDT) [facility] Sai [employer] Method Time Signature Hemoglobin 6.2 (L) 11.6 [...] AM CDT Neutrophils SeeComment 1.56 - 01/25/2022 DHPM 6.45 7:03 AM CDT x10(9)/L Comment: Auto-diff results not valid. Se e manual differential. Specimen Anatomical Collection Method Collection Time Receive d Time (Source) Location / / Volume Laterality Blood (Blood, 01/25/2022 5:35 AM 01/26/20 5:57 Venous) CDT AM CDT Darrick Santillan LAB BLOOD ADD-ON Performing Organization Address City/State/ZIP Code Phon e Number [facility] - [address] [place] [address] [place], [place] [address] [facility] 200 [facility] (ABNORMAL) Basic Metabolic Panel (01/25/2022 5:35 [...] Laterality Blood (Blood, 01/25/2022 5:35 AM 01/26/20 6:08 Venous) CDT AM CDT Darrick Santillan LAB BLOOD ADD-ON Performing Organization Address City/[facility] Phon e Number [place] [address] [place], [place] [address] (ABNORMAL) Haptoglobin (01/25/2022 5:35 AM CDT) athologist Signature Haptoglobin, S <14 (L) 30 - 200 01/26/2022 SDSC mg/dL 10:51 AM CDT Specimen Anatomical Collection Method Collection Time Receive d Time (Source) Location / / Volume Laterality Blood 01/25/2022 5:35 AM 6:58 CDT AM CDT Darrick Santillan LAB BLOOD ADD-ON Performing Organization Address City/State/ZIP Code Phon e Number [facility] [address] [place], [place] [address] [place] [address] [facility] [address] [place] LD (Lactate Dehydrogenase) (01/25/2022 5:35 AM CDT) [facility] [place] LD 197 122 - 222 01/25/2022 DTL U/L 6:35 AM CDT Specimen Anatomical Collection Method Collection Time Receive d Time (Source) Location / / Volume Laterality Blood (Blood, 01/25/2022 5:35 AM 01/26/20 22 6:18 Venous) CDT AM CDT Darrick Santillan LAB BLOOD NON ADD-ON Performing Organization Address City/State/ZIP Code Phon e Number [facility] - [address] [place], [place] [address] [facility] [place] [address] [facility] [address] (ABNORMAL) SPSMA Result (01/25/2022 5:35 AM CDT) Analysis [facility] Neutrophilic Segs 74 50 - 75 % [...] CDT Manual Absolute 2.96 1.56 - 01/25/2022 PM Neutrophil Count 6.45 7:03 AM CDT x10(9)/L [...] Santillan LAB BLOOD ADD-ON Performing Organization Address City/[facility]/ZIP Code Phon e Number [facility] - 200 [place] [address] 05 [facility] [place] [place] [address] (ABNORMAL) Prothrombin Time (PT) (01/25/2022 5:35 AM CDT) Patholo gist Method Time Signature Prothrombin 31.9 (H) [...] 01/26/20 5:57 Venous) CDT AM CDT Darrick DanielSSuma LAB BLOOD ADD-ON Performing Organization Address City/[facility]/ZIP Code Phon e Number [facility] - [address] Magnesium (01/25/2022 5:30 AM CDT) P athologist Signature Magnesium, S 1.9 1.7 - 2.3 01/25/2022 DTL mg/dL 5:21 PM CDT Specimen Anatomical Collection Method Collection Time Receive d Time (Source) Location / / Volume Laterality Blood (Blood, 01/25/2022 5:30 AM 01/26/20 5:06 Venous) CDT PM CDT Darrick DanielSSuma LAB BLOOD ADD-ON Performing Organization Address City/[facility]/ZIP Code Phon e Number [facility] - [address] [place], [place] [address] 05 [place] [address] Direct Antiglobulin Test (Poly) (01/25/2022 5:30 AM CDT) [facility] Method Time Signature Direct Negative Negative 01/25/2022 STRM Antiglobulin 1:15 PM CDT Test, Polyspecific Specimen Anatomical Collection Method Collection Time Receive d Time (Source) Location / / Volume Laterality Blood (Blood, 01/25/2022 5:30 AM 01/26/20 22 Venous) CDT 11:46 AM CDT Darrick Santillan LAB BLOOD BANK TEST ORDERABL ES Performing Organization Address [facility] Phon e Number [facility] - 200 [place], [place] [address] 05 [facility] STRM [place] [address] [address] (ABNORMAL) Reticulocytes (01/25/2022 5:30 AM CDT) [facility] Method Time Signature Reticulocytes, B 6.67 (H) [...] Santillan LAB BLOOD ADD-ON Performing Organization Address City/[facility] Phon e Number [facility] - 200 [place] [address] [facility] [place] [address] (ABNORMAL) Dipstick, Urine (01/24/2022 3:32 PM CDT) [facility] Signature Hemoglobin, Small (A) Negative 01/24/2022 DTL [...] M.D. LAB URINE ORDERABLES Performing Organization Address City/[facility]/ZIP Code Phon e Number [facility] - [address] [place], [place] [address] [facility] [place] [id number] [address] Osmolality, Urine (01/24/2022 3:32 PM CDT) athologist Signature Osmolality, U 434 150 - 1150 01/24/2022 DTL mOsm/kg 4:29 PM CDT Specimen Anatomical Collection Method Collection Time Receive d Time (Source) Location / / Volume Laterality Urine 01/24/2022 3:32 PM 2 3:59 CDT PM CDT Yue Silver M.D. LAB URINE ORDERABLES Performing Organization Address City/State/ZIP Code Phon e Number [facility] - 200 [place], [place] [address] [place] [address] [place] [address] pH, Random, Urine (01/24/2022 3:32 PM [...] [facility] [address] [place], [place] [address] [facility] [place] [address] (ABNORMAL) Microscopic Manual (01/24/2022 3:32 PM [...] M.D. LAB URINE ORDERABLES Performing Organization Address City/[facility] Phon e Number [facility] - [address] [place] [address] [address] [facility] Creatinine, Random, Urine (01/24/2022 3:32 PM CDT) athologist Signature Creatinine, 60 16 - 326 01/24/2022 DTL Random, U mg/dL 4:50 PM CDT Specimen Anatomical Collection Method Collection Time Receive d Time (Source) Location / / Volume Laterality Urine (Urine, 01/24/2022 3:32 PM 01/25/20 22 3:59 Midstream) CDT PM CDT Yue Silver M.D. LAB URINE ORDERABLES Performing Organization Address City/[facility] Phon e Number [facility] - [address] [place] [address] [address] [facility] Sodium, Random, Urine (01/24/2022 3:32 PM CDT) [...] M.D. LAB URINE ORDERABLES Performing Organization Address [facility] Phon e Number [facility] - [address] (ABNORMAL) Urinalysis with Microscopic: Urine, Midstream (01/24/2022 3:32 PM CDT) [facility] Method Time Signature Source Urine, Urine, [...] M.D. LAB URINE ORDERABLES Performing Organization Address City/[facility] Phon e Number [facility] - [address] [place] [address] [address] (ABNORMAL) Bilirubin, Total (01/24/2022 1:35 PM CDT) P athologist Signature Bilirubin, 11.9 (H) <=1.2 01/24/2022 DTL Total, P mg/dL 2:33 PM CDT Specimen Anatomical Collection Method Collection Time Receive d Time (Source) Location / / Volume Laterality Blood 01/24/2022 1:35 PM 1:35 CDT PM CDT Darrick Santillan LAB BLOOD ADD-ON Performing Organization Address City/[facility] Phon e Number [facility] - 200 [place], [place] [address] [facility] [place] [address] [facility] 200 [facility] (ABNORMAL) CBC without Differential (01/24/2022 5:22 AM CDT) Patholo gist Method Time Signature Hemoglobin 7.6 [...] M.D. LAB BLOOD ADD-ON Performing Organization Address City/[facility]/ZIP Code Phon e Number [facility] - [address] [place] [address] (ABNORMAL) Basic Metabolic Panel (01/24/2022 5:22 AM CDT) athologist Signature Potassium, S 4.8 3.6 - [...] Organization Address City/State/ZIP Code Phon e Number ED [facility] - [address] (ABNORMAL) Bilirubin, Direct (01/24/2022 5:17 AM CDT) athologist Signature Bilirubin, 5.1 (H) 0.0 - 0.3 01/24/2022 DT Direct, S mg/dL 2:40 PM CDT Specimen Anatomical Collection Method Collection Time Receive d Time (Source) Location / / Volume Laterality Blood (Blood, 01/24/2022 5:17 AM 01/25/20 22 1:52 Venous) CDT PM CDT Darrick DanielSSuma LAB BLOOD ADD-ON Performing Organization Address City/State/[facility] Code Phon e Number [facility] - [address] [place], [place] [address] [facility] [place] [address] Laboratories-[place] [address] [address] [facility] (ABNORMAL) Cystatin C with Estimated GFR (01/24/2022 5:17 AM CDT) athologist Signature eGFR by 33 (L) >60 01/24/2022 DT Cystatin C mL/min/BSA 7:59 AM CDT Comment: [...] - 1.03 mg/L 01/24/2022 7:59 AM CDT DT Specimen Anatomical Collection Method Collection Time Receive d Time (Source) Location / / Volume Laterality Blood (Blood, 01/24/2022 5:17 AM 01/25/20 22 7:33 Venous) CDT AM CDT Darrick DanielSSuma LAB BLOOD ADD-ON Performing Organization Address City/State/[facility] Code Phon e Number [facility] - [address] [place], [place] [address] [facility] [place] [address] [facility] [address] Upper GI Endoscopy (01/23/2022 3:35 PM CDT) Specimen (Source) Anatomical Collection Method Collection Time Re ceived Time Location / / Volume Laterality 01/23/2022 3:35 PM CDT [facility] 4:08 PM CDT Post-op Diagnoses: [...] examination. ? - No specimens collected. Narrative [facility] - 01/23/2022 4:08 PM CDT Otto 6 GI GI Patient Name: Catia Carias Date of : 1990 Age: 31 Gender: Female Procedure Date: 01/23/2022 Procedure: ? Upper GI endoscopy Providers: ? Jesús Campa MD, Tanmay Parker MD ? (Elicia adamsonw) Referring Provider: ?Sree michael Pre-op Diagnoses: ?Cirrhosis, [...] e Number [facility] [place] (ABNORMAL) Prothrombin Time (PT) (01/23/2022 10:58 AM CDT) [facility] Method Time Signature Prothrombin 29.9 (H) 9.4 [...] Venous) AM CDT 11:22 AM CDT Anthony CheryB.S. LAB BLOOD ADD-ON Performing Organization Address City/[facility] Phon e Number [facility] - [address] [place] [address] [facility] [place] [address] [facility] 200 [facility] (ABNORMAL) Prothrombin Time (PT) (01/23/2022 10:58 AM CDT) Patholo gist Method Time Signature Prothrombin 31.5 (H) 9.4 [...] Venous) AM CDT 11:05 AM CDT Anthony CheryB.S. LAB BLOOD ADD-ON Performing Organization Address City/[facility] Phon e Number [facility] - [address] [place] [address] 05 [place] [address] [facility] 200 [facility] (ABNORMAL) Basic Metabolic Panel (01/23/2022 5:27 AM [...] Number [facility] - [address] [place] [address] [facility] [place] [address] [facility] 200 [facility] (ABNORMAL) CBC with Differential, Blood (01/23/2022 5:27 AM CDT) [facility] Method Time Signature Hemoglobin 7.1 (L) 11.6 [...] [facility] [address] [place], [place] [address] [facility] [place] [address] [facility] [address] (ABNORMAL) Ammonia (01/23/2022 5:27 AM CDT) P athologist Signature Ammonia, P 109 (H) <=30 01/23/2022 DTL mcmol/L 6:11 AM CDT Specimen Anatomical Collection Method Collection Time Receive d Time (Source) Location / / Volume Laterality Blood (Blood, 01/23/2022 5:27 AM 01/24/20 22 5:41 Venous) CDT AM CDT Sree Little M.D. LAB BLOOD NON ADD-ON Performing Organization Address City/[facility] Phon e Number [facility] - [address] (ABNORMAL) Hemoglobin (01/22/2022 10:18 PM CDT) athologist Signature Hemoglobin 7.5 (L) 11.6 - 15.0 01/22/2022 DTL g/dL 10:47 PM CDT Specimen Anatomical Collection Method Collection Time Receive d Time (Source) Location / / Volume Laterality Blood (Blood, 01/22/2022 10:18 01/22/2022 Venous) PM CDT 10:34 PM CDT Sree Little M.D. LAB BLOOD ADD-ON Performing Organization Address [facility] Phon e Number [facility] - [address] Transfuse Red Blood Cells : (01/22/2022 8:01 PM CDT) Sree Little M.D. BLOOD TRANSFUSION ORDERABLES Transfuse Red Blood Cells : , 1 Units (01/22/2022 8:01 PM CDT) Sree Little M.D. BLOOD TRANSFUSION ORDERABLES (ABNORMAL) Basic Metabolic Panel (01/22/2022 9:40 AM CDT) athologist Signature Potassium, P 4.3 3.6 - [...] M.D. LAB BLOOD ADD-ON Performing Organization Address City/State/[facility] Code Phon e Number [facility] - [address] [place] [address] 05 [place] [address] [facility] 200 [facility] (ABNORMAL) CBC with Differential, Blood (01/22/2022 9:40 AM CDT) [facility] gist Method Time Signature Hemoglobin 6.0 (CL) 11.6 [...] M.D. LAB BLOOD ADD-ON Performing Organization Address City/[facility] Phon e Number [facility] - [address] [place] [address] Type and Screen (with reflex Antibody ID) (01/22/2022 9:39 AM CDT) [facility] Method Time Signature ABORh B Pos Not [...] BANK TEST ORDERABL ES Performing Organization Address [facility] Phon e Number [facility] [address] STR[place] [phone] [facility] [address] (ABNORMAL) CBC with Differential, Blood (01/22/2022 9:39 AM CDT) [facility] Method Time Signature Hemoglobin 6.2 (L) 11.6 [...] M.D. LAB BLOOD ADD-ON Performing Organization Address City/[facility] Phon e Number [facility] - 200 [place], [place] [address] 05 [facility] [place] [place] [address] [facility] 200 [facility] (ABNORMAL) Prothrombin Time (PT) (01/22/2022 5:22 AM CDT) [facility] Method Time Signature Prothrombin 31.0 (H) [...] M.D. LAB BLOOD ADD-ON Performing Organization Address City/[facility] Phon e Number [facility] - 200 [place], [place] [address] 05 [facility] [place] [address] Laboratories-[address] [place] Paracentesis with Imaging Guidance (01/21/2022 10:49 AM CDT) Anatomical Region Laterality Modality Abdomen, Ultrasound RST LOS, Ultrasound ARZ LOS, Procedure F LA N/A Ultrasound LOS, Abdominal FLA LOS, Procedural Specimen (Source) Anatomical Collection Method Collection Time Re ceived Time Location / / Volume Laterality 01/21/2022 10:27 AM CDT Impressions 01/21/2022 11:13 AM CDT Ultrasound-guided paracentesis. SPIRAL BINDER Narrative 01/21/2022 11:13 AM CDT EXAM: US [...] met. POST-PROCEDURE DIAGNOSIS: Ascites. IMPRESSION: Ultrasound-guided paracentesis. SPIRAL BINDER Matthew COOLG US PROCEDURES Protein, Total, Body Fluid (01/21/2022 [...] ical findings. All other fluids refer to [email or web address] Passports for further inter pretive information. This test has been modified from the plant technical specialist's instructions. Its perform ance characteristics were determined by [facility] in a manner consistent with CLIA [...] Number [facility] - [address] [place] [address] [facility] [place] [address] [facility] 200 [facility] Cell Count and Differential, Body Fluid (01/21/2022 10:00 AM CDT) [facility] gist Method Time Signature Fluid Type Peritoneal- 01/21/2022 DHPM Paracentesi 11:10 AM CDT s Gross Serous 01/21/2022 PM Appearance 11:10 AM CDT Total Nucleated 83 /mcL 01/21/2022 PM Cells 11:10 AM CDT Comment: ----REFERENCE VALUE---- Synovial: <150 /mcL Peritoneal: <500 /mcL Pleural: <500 /mcL Pericardial: <500 /mcL ----ADDITIONAL INFORMATION---- This test has been modified from the man ufacturer's instructions. Its performance characteri stics were determined by [facility] in a manner co nsistent with [...] AND STOOLS O JOSE Performing Organization Address City/[facility] Code Phon e Number [facility] - [address] Bacterial Culture, Aerobic + Susc (01/21/2022 10:00 AM CDT) [facility] Method Time Signature Bacterial No growth 01/26/2022 DTL Culture, after 5 7:48 AM CDT Aerobic + Susc days of incubation. Specimen Anatomical Collection Method Collection Time Receive d Time (Source) Location / / Volume Laterality Fluid 01/21/2022 10:00 01/21/2022 (Peritoneal AM CDT 11:52 AM CDT Fluid) Comment: Specimen Source Site: Fluid Narrative [facility] - [facility] - 01/26/2022 7:48 AM CDT Bacterial Culture: Received Bactec aerob ic and Bactec anaerobic bottles Matthew Becerril M.D. LAB MICROBIOLOGY - GENERAL O JOSE Performing Organization Address City/[facility] Phon e Number [facility] - 200 [place] [address] 05 [place] [address] [facility] [place] [address] (ABNORMAL) Comprehensive Metabolic Panel (01/21/2022 7:25 AM CDT) Analysis Performed At [facility] Time Signature Potassium, S 4.6 3.6 - [...] (H) <=1.2 mg/dL 01/21/2022 9:11 AM CDT DT Specimen Anatomical Collection Method Collection Time Receive d Time (Source) Location / / Volume Laterality Blood (Blood, 01/21/2022 7:25 AM 01/22/20 8:51 Venous) CDT AM CDT Matthew Becerril M.D. LAB BLOOD ADD-ON Performing Organization Address City/State/ZIP Code Phon e Number [facility] - 200 [place], [place] [address] [facility] [place] [address] (ABNORMAL) Cystatin C with Estimated GFR (01/21/2022 [...] - 1.03 mg/L 01/21/2022 9:04 AM CDT DT Specimen Anatomical Collection Method Collection Time Receive d Time (Source) Location / / Volume Laterality Blood (Blood, 01/21/2022 7:25 AM 01/22/20 22 8:48 Venous) CDT AM CDT Matthew Becerril M.D. LAB BLOOD ADD-ON Performing Organization Address City/State/ZIP Code Phon e Number [facility] - 200 [place], [place] [address] [facility] [place] [address] Laboratories-[address] (ABNORMAL) CBC with Differential, Blood (01/21/2022 7:25 AM CDT) Patholo gist Method Time Signature Hemoglobin 6.7 (L) [...] Laterality Blood (Blood, 01/21/2022 7:25 AM 01/22/20 22 8:34 Venous) CDT AM CDT Matthew Becerirl M.D. LAB BLOOD ADD-ON Performing Organization Address City/State/ZIP Code Phon e Number [facility] - [address] [place], [place] [address] [facility] [place] [address] [facility] [address] (ABNORMAL) Iron and Total Iron-Binding Capacity [...] M.D. LAB BLOOD ADD-ON Performing Organization Address City/[facility] Phon e Number [facility] - [address] (ABNORMAL) Ferritin (01/21/2022 7:21 AM CDT) athologist Signature Ferritin, S 564 (H) 11 - 307 01/22/2022 DTL mcg/L 5:18 PM CDT Specimen Anatomical Collection Method Collection Time Receive d Time (Source) Location / / Volume Laterality Blood (Blood, 01/21/2022 7:21 AM 01/23/20 4:23 Venous) CDT PM CDT Sree Little M.D. LAB BLOOD ADD-ON Performing Organization Address City/[facility] Phon e Number [facility] - [address] [place] [phone] [address] (ABNORMAL) Hepatic Function Panel (01/21/2022 2:40 [...] M.D. LAB BLOOD ADD-ON Performing Organization Address City/[facility] Phon e Number [facility] - [address] Lipase (01/21/2022 2:40 AM CDT) P athologist Signature Lipase, S 26 13 - 60 U/L 01/21/2022 3:23 DTL AM CDT Specimen Anatomical Collection Method Collection Time Receive d Time (Source) Location / / Volume Laterality Blood (Blood, 01/21/2022 2:40 AM 01/22/20 22 3:05 Venous) CDT AM CDT Cody Knight M.D. LAB BLOOD ADD-ON Performing Organization Address City/[facility] Phon e Number [facility] - [address] Abdomen Pelvis without IV Contrast [...] are new since 11/25/2021. Cody Knight M.D. IMG CT PROCEDURES (ABNORMAL) Dipstick, POCT, Urine (01/20/2022 9:05 PM CDT) [facility] Method Time Signature Glucose, Negative Negative 01/20/2022 PCED POCT, U mg/dL 9:06 PM CDT Ketone, POCT, Trace (A) Negative 01/20/2022 PCED U mg/dL 9:06 PM CDT Specific 1.015 1.005 - 01/20/2022 PCED [place], 1.030 9:06 PM CDT POCT, U Blood, [...] Code Phon e Number POC RST [facility] [address] [place] [address] OUTPATIENT LABS PCED [facility] Laboratories [place], [place] [id number] [place] [address] POC 200 [facility] (ABNORMAL) Dipstick, Urine (01/20/2022 8:57 PM CDT) [facility] Method Time Signature Hemoglobin, Negative Negative 01/20/2022 [...] M.D. LAB URINE ORDERABLES Performing Organization Address City/[facility]/ZIP Code Phon e Number [facility] - [address] [place], [place] [address] [place] [address] pH, Urine (01/20/2022 8:57 PM CDT) athologist Signature pH, U 5.5 4.5 - 8.0 01/20/2022 9:48 DTL PM CDT Specimen Anatomical Collection Method Collection Time Receive d Time (Source) Location / / Volume Laterality Urine 01/20/2022 8:57 PM 2 9:23 CDT PM CDT Cody Knight M.D. LAB URINE ORDERABLES Performing Organization Address City/[facility]/ZIP Code Phon e Number [facility] - 200 [place], [place] 55 05 [place] [address] Osmolality, Urine (01/20/2022 8:57 PM CDT) athologist Signature Osmolality, U 401 150 - 1150 01/20/2022 DTL mOsm/kg 9:48 PM CDT Specimen Anatomical Collection Method Collection Time Receive d Time (Source) Location / / Volume Laterality Urine 01/20/2022 8:57 PM 2 9:23 CDT PM CDT Cody Knight M.D. LAB URINE ORDERABLES Performing Organization Address City/[facility]/ZIP Code Phon e Number [facility] - 200 [place], [place] [address] [facility] [place] [address] Microscopic Automated (01/20/2022 8:57 PM CDT) athologist Signature Microscopy Normal 01/20/2022 DTL 10:03 [...] M.D. LAB URINE ORDERABLES Performing Organization Address City/[facility]/ZIP Code Phon e Number [facility] - [address] [place], [place] [address] [place] [address] Laboratories-[address] Gram Stain, Urine (01/20/2022 8:57 PM [...] M.D. LAB URINE ORDERABLES Performing Organization Address [facility]/ZIP Code Phon e Number [facility] - [address] [place], [place] [address] [place] [address] Bacterial Culture, Aerobic + Susc, Urine (01/20/2022 8:57 PM CDT) Patholo gist [...] - GENERAL O RDERABLES Performing Organization Address City/[facility]/ZIP Code Phon e Number [facility] - [address] [place], [place] [address] [facility] [place] [address] Laboratories-[address] Urinalysis with Microscopic: Urine, Straight Catheter (01/20/2022 8:57 PM CDT) [facility] Method Time Signature Source Urine, 01/20/2022 [...] M.D. LAB URINE ORDERABLES Performing Organization Address City/State/[facility] Code Phon e Number ED [facility] - [address] [place] [address] 05 [place] [address] Laboratories-[address] (ABNORMAL) Venous Blood Gas and Electrolytes [...] City/State/ZIP Code Phon e Number POC [facility] [address] [place], [place] [address] [place] [address] [place] [facility] [address] Lactate, POCT (01/20/2022 8:51 PM CDT) athologist Signature Lactate, POCT 1.50 0.50 - 01/20/2022 PCLX 2.20 11:45 PM CDT mmol/L Sample Site, Venstick 01/20/2022 PCLX POCT 11:45 PM CDT Specimen Anatomical Collection Method Collection Time Receive d Time (Source) Location / / Volume Laterality Blood 01/20/2022 8:51 PM CDT 11:46 PM CDT Unknown Provider LAB POCT ORDERABLES - DEVICE Performing Organization Address City/[facility]/ZIP Code Phon e Number [facility] [address] [place] [address] [place] [address] [place] [facility] [address] hCG (Human Chorionic Gonadotropin), Quantitative, (01/20/2022 8:49 PM CDT) athologist Signature HCG, 0.5 <5 IU/L 01/20/2022 STMA Quantitative, 9:19 PM CDT , P Specimen Anatomical Collection Method Collection Time Receive d Time (Source) Location / / Volume Laterality Blood (Blood, 01/20/2022 8:49 PM 01/21/20 22 9:01 Venous) CDT PM CDT Cody Knight M.D. LAB BLOOD ADD-ON Performing Organization Address City/State/ZIP Code Phon e Number [facility] - [address] [place], [place] [address] [facility] [address] Laboratories-[facility] [address] Lactate, POCT (01/20/2022 8:49 PM CDT) Analysis Performed At Patho logist Time Signature Lactate, POCT Collected DEFAULT 01/20/2022 SMLX 8:49 PM CDT Specimen Anatomical Collection Method Collection Time Receive d Time (Source) Location / / Volume Laterality Blood (Blood, 01/20/2022 8:49 PM 01/21/20 22 8:49 Venous) CDT PM CDT Cody Knight M.D. LAB POCT ORDERABLES - DEVICE Performing Organization Address City/[facility] Phon e Number [facility] - [address] [place], [place] [address] [facility] [place] [address] Laboratories-[address] Venous Blood Gas and Electrolytes CG8+, POCT (01/20/2022 8:49 PM CDT) Analysis Performed At Patho logis Time Signature VBG & Lytes Collected DEFAULT 01/20/2022 SMLX CG8+, POCT, B 8:49 PM CDT Specimen Anatomical Collection Method Collection Time Receive d Time (Source) Location / / Volume Laterality Blood (Blood, 01/20/2022 8:49 PM 01/21/20 8:49 Venous) CDT PM CDT Cody Knight M.D. LAB POCT ORDERABLES - DEVICE Performing Organization Address [facility] Phon e Number [facility] - [address] [place] [address] [facility] [place] [address] Laboratories-[address] (ABNORMAL) Basic Metabolic Panel (01/20/2022 8:49 PM CDT) Analysis Performed At Patho logis Time Signature Potassium, P 5.2 3.6 - [...] [facility] [address] [place], [place] [address] [place] [address] Laboratories-[facility] [address] documented in this encounter Visit Diagnoses Diagnosis Cirrhosis Alcoholic (HCC) Failure Renal Acute (Acute Kidney Injury ) [...] mL/hr, Administer over 2 Hours, Once, On 01/25/22 at 1545, For 1 dose, If no [...] Minutes, Every 24 hours, First dose on Luz Marina 01/22/22 at 0900, For 4 days, Drug Monitoring [...] Every 24 hours scheduled, First dose on Wed01/24/22 at 1415 Given 01/24/2022 3:33 PM CDT 40 mg Right Lower Abdomen erythromycin 250 mg in NaCl 0.9% New Bag 01/25/2022 10:36 PM C DT 250 mg 105 mL/hr IVPB (ERYTHROCIN) 250 mg, intravenous, at 105 mL/hr, Administer over 60 Minutes, Once, On Wed01/25/22 at 2300, For 1 dose, Indications: gastric [...] 50 mcg 50 mcg, intravenous, Once, On Wed01/20/22 at 2357, For 1 dose fentaNYL injection [...] 10 g 10 g, oral, Once, On Luz Marina 01/22/22 at 1615, For 1 dose lactulose solution [...] (Ne w Bag - Provider: Paz Velasquez RGabby) 25 g, intravenous, Once, On Wed01/27/22 at 1230, For 1 dose, If no infusion rate specified: Administer the 25% solution at 100 mL/hr cholecalciferol (vitamin D3) tablet 25 mcg 0814 (Given - Provider: Marla Kelly RSumaNSuma) 0831 (Given - Provider: Bere Garcia RSumaNSuma) 0900 (Giv en - Provider: Stacie Sullivan RGabby) 25 mcg, oral, Daily, First dose on Wed at 0900, cholecalciferol (vitamin D3) orderable was interchanged for cholecalciferol (vitamin D3) tablet/capsule ciprofloxacin tablet 500 mg (CIPRO) 0624 (Given - Prov ider: Payam Sandoval R.N.) 0641 (Given - Provider: Humera Sifuentes R.N.) 0620 (Given - Provider: Gi Fitzpatrick R.NSuma) 500 mg, oral, Daily before breakfast, [...] (N ew Bag - Provider: Katina Contreras R.N.) 4,000 mcg (4 mg), intravenous, at 128 mL /hr, Administer over 4 Hours, Once, On Wed01/27/22 at 1530, For 1 dose, Do not exceed infusion rate of 1 mg/hr. diclofenac sodium 1 % gel 2 g (VOLTAREN) 0821 (Not Giv en - Provider: Marla Kelly RGabby - Reason: Other)1349 (Not Given - Provider: Juliana Larson RSumaNSuma - Reason: Patient/family refused)1730 (Not Given - Provider: Katina Contreras RGabby - Reason: Patient/family refused) 0832 (Given - Provider: Bere Garcia R SumaNSuma)1200 (Given - Provider: Bere Garcia RSumaNSuma)1653 (Not Given - Provider: Bere Garcia RSumaN. - Reason: Patient/family refused) 0904 (Given - Provider: Stacie Sullivan RSumaNSuma)1200 (Due) 2 g, topical, 4 times daily, [...] tablet 1 mg 0814 (Given - Provider: Andrew RochaNSuma) 0831 (Given - Provider: Bere Garcia R.N.) [...] (COMPLETED) 0247 (Given - Provider: Humera Sifuentes RGabby) 1 mg, oral, Once, On Wed01/28/22 at 0245, For 1 dose lactulose solution 20 g (CHRONULAC) 0814 (Given - Prov ider: Marla Kelly R.N.)1349 (Not Given - Provider: Juliana Larson RGabby - Reason: Patient/family refused)1650 (Given - Provider: Katina Contreras R.N.)210 (Given - Provider: Elizabeth Ying.A.NSuma, R.N.) 0831 (Given - Provider: Bere Garcia R.N.)1157 (Given - Provider: Bere Garcia R.N.)1650 (Given - Provider: Bere Garcia R.N.)2112 (Given - Provider: Gi Fitzpatrick R.N.) 0859 (Given - Provider: Stacie Sullivan R.N.)1200 (Due) 20 g, oral, 4 times daily, First dose (a fter last modification) on Wed01/26/22 at 1700 lidocaine 5 % 1 patch (LIDODERM) 0813 (Medication Appl ied - Provider: Marla Kelly R.N.)2104 (Medication Removed - Provider: Vahe Jones M.A.NSuma, R.N.) 1655 (Medication Applied - Provider: Chr ti Garcia R.N. - Comment: pt request to delay) 0455 (Medication Removed - Provider: Tanner Fitzpatrick R.N.)0859 (Medication Applied - Provider: Stacie Sullivan R.N.)1201 (Due: Medication Removed - Provider: Discharge Provider, Automatic - Comment: Time automatically 1 patch, transdermal, Administer over 12 Hours, Daily, First dose on Wed01/21/22 at 0900, Remove after 12 hours. adjuste d from order being discontinued) magnesium oxide tablet 400 mg (MAG-OX) 0624 (Given - P rovider: Payam Sandoval R.N.)1648 (Given - Provider: Katina Contreras R.N.) 0641 (Given - Provider: Humera Sifuentes R.N.)1650 (Given - Provider: Bere Garcia R.N.) 0912 [...] 0814 (Given - Provid er: Marla Kelly RGabby)2100 (Given - Provider: Chano Ying, R.N.) 0832 (Given - Provider: Bere Garcia R.N.)211 (Given - Provider: Gi Fitzpatrick R.N.) 0900 (Given - Provider: Stacie Sullivan R.N.) 550 mg, oral, 2 times daily, First dose on Wed01/21/22 at 0900, For 324 days, Indications: Prophylaxis, medical sodium chloride 0.9 % injection 3 mL 0828 (Not Given - Provider: Marla Kelly R.N. - Reason: Other)2103 (Not Given - Provider: Chano Ying, R.N. - Reason: Other - Comment: IV infusing) [...] mcg zinc sulfate capsule 220 mg (ZINCATE) 0815 (Given - Pr ovider: Marla Kelly RGabby) 0831 (Given - Provider: Bere Garcia R.N.) 0900 (Giv en - Provider: Stacie Sullivan R.N.) 220 mg, oral, Daily with breakfast, Firs t dose on Wed01/21/22 at 0800, Doses listed in zinc sulfate. Each 220 mg of zinc sulfate contains 50 mg of elemental zinc. PRN Medication Order 01/27/2022 01/28/2022 01/29/2022 cyclobenzaprine tablet 5 mg (FLEXERIL) 1149 (Given - P rovider: Pza Velasquez R.N.)2101 (Given - Provider: Chano Ying, R.N.) 0150 (Given - Provider: Humera Sifuentes R.N.) 5 mg, oral, Daily PRN, muscle [...] Sandoval R.N.)0814 (Given - Provider: Marla Kelly RGabby) 1 mg, oral, Every 6 hours PRN, [...] (CANCELED) 1650 (Given - Provider: Bere Garcia REric.)2111 (Given - Provider: Andrew CliftonNSuma) 0537 (Given - Provider: Gi Fitzpatrick R.N.)0856 [...] lozenge 1341 (Given - Provider: Paz burciaga RSumaNSuma) 1 lozenge, oral, As needed, sore throat, [...] documented as of this encounter Care Teams Career Services Officer Relationship Specialty Start Date End Date Ana Red P.A.-C. PCP - General Internal Medicine 12/01/[address] [place] [phone] [facility]- [facility] 08/25/21 Ervin Schroeder MD Referring Provider Family Medicine 03/24/[address] [place] [phone] documented as of this encounter
--- OUTSIDE RECORDS SUMMARY | 2022-02-10 09:28 | XMS_ITS | Encounter Summary ---
:1990 Author Organization [facility] Address [address] [place] [address] Care Team Providers Name Role Phone Ana Red P.A.-C. Primary Care Provider [phone] Reason for Visit Transplant (Routine) - Authorized Specialty Diagnoses / Procedures Referred By Contact Refer red To Contact Transplant Surgery / Matthew Jerome [facility] Transplant Elizabeth.BSumaBLilian Bedolla [address] [place] [phone] Referral ID Status Reason Start Date Expiration Date Visits V isits Requested Authorized [id number] Authorized 10/27/2021 10/27/2022 1 1 Encounter Details Date Type Department Care Team Description 01/28/2022 Virtual Visit Matthew Valenzuela Can celed (Patient: Center for M.BSumaBLilian Bedolla Hospitalized / ill) Transplantation and [address] [place] [address] in [place], [place] [phone] [facility] [facility] [phone] [place] [address] (Work) [phone] Social History Tobacco Use Types Packs/Day Years [...] you attend zoroastrian or Patient refused 2021 restoration services? 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 [address] [place] [phone] Telemedicine Transplant [facility] 2 Brigid noyola M.D. [address] [place] [phone] Office Visit Community Internal [facility], 2 Medicine Vernell Perez [address] [place] [address] Lab Laboratory Medicine Karin, 2 Adeline Gannon M.D., Ph.D. [address] [place] [phone] Lab Laboratory Medicine Karin, 2 Adeline Gannon M.D., Ph.D. [address] [place] [phone] Office Visit Transplant Karin, 2 Adeline Gannon M.D., Ph.D. [address] [place] [phone] Office Visit Family Medicine Robbin Maria 2, M.D. [address] [place] [phone] Appointment Radiology Matthew Jerome 2 YKishore.B.SSuma, Lilian [address] [place] [address] Appointment Gastroenterology and Adrianne, 2 Hepatology Yue Burciaga M.D. [address] [place] [address] Office Visit Gastroenterology and Queenie Matthew 2 Hepatology Tyrell Rodriguez M.D. [address] [place] [phone] Appointment Radiology Queenie Matthew 2 Tyrell Rodriguez M.D. [address] [place] [phone] Hospital Gastroenterology and [place] Matthew Cirrhos is Alcoholic (HCC) 2 Encounter Hepatology Tyrell Rodriguez M.D. [address] [place] [phone] Anesthesia Event Gastroenterology and Rl, 2 Hepatology Ervin Burgos M.D. 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 PCP - General Internal Medicine 12/01/[address] [place] [address] BAYADI ALMARAZ [phone] [facility]- [facility] 08/25/21 Ervin Schroeder MD Referring Provider Family Medicine 03/24/[address] [place] [address] [place] Station[place]I almaraz [phone] documented as of this encounter
--- OUTSIDE RECORDS SUMMARY | 2022-02-10 09:28 | XMS_ITS | Encounter Summary ---
:1990 Author Organization [facility] Address [address] [place] [address] Care Team Providers Name Role Phone Ana Red P.A.-C. Primary Care Provider [phone] Encounter Details Date Type Department Care Team Description 01/20/2022 Clinical Communication Department of Felicita Spicer Gastroenterology in [facility] [place], [place] [phone] [place] [address] ([facility]) [place] [phone] Social History Tobacco Use Types Packs/Day [...] How often do you attend adventist or Patient refused 2021 mormon services? Do you belong to any clubs or No 02/10/2022 organizations such as adventist groups, unions, fraIntela or athletic groups, or school groups? 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 Patient was also advised to hold her diuretics per direction from Dr. Jerome in separatemessage (see below). Patient verbalized understanding of the information provided and states she will report to [facility] ED as this is slightly closer for her. [4:01 PM] Matthew Jerome M.B.B.S., M.D. can you please call Christelle Carias and have her come to the ER for Acute kidney injury [4:01 PM] Matthew Jerome M.B.B.S., M.D. she needs albumin, and needs [...] Transplant Matthew Jerome M .B.B.S., M.D. [address] [place] [address] 2 Rain Reyes R.N. [address] [place] [phone] Telemedicine Transplant [facility] centerDem[facility]us 2 Brigid noyola M.D. [address] [place] [address] [phone] Office Visit Community Internal Neda, 2 Medicine Vernell Perez [address] [place] [address] Lab Laboratory Medicine Karin, 2 Adeline Gannon M.D., Ph.D. [address] [place] [address] [phone] Lab Laboratory Medicine Karin, Olinda Adeline Gannon M.D., Ph.D. [address] [place] [address] [phone] Office Visit Transplant Karin, Olinda Adeline Gannon M.D., Ph.D. [address] [place] [address] [phone] Office Visit Family Medicine Robbin Maria 2 Lilian Johnson [address] [place] [phone] Appointment Radiology Matthew Jerome 2 Y M.B.B.SSuma, Lilian [address] [place] [phone] Appointment Gastroenterology and Adrianne, 2 Hepatology Yue Burciaga M.D. [address] [place] [address] [phone] Office Visit Gastroenterology and Matthew Jerome 2 Hepatology Jennifer M.B.B.SSuma, Lilian [address] [place] [phone] Appointment Radiology Matthew Jerome 2 Y, M.B.B.S., Lilian [address] [place] [phone] Hospital Gastroenterology and Matthew Jerome Cirrhos is Alcoholic (HCC) 2 Encounter Hepatology Jennifer M.B.B.SSuma, Lilian [address] [place] [phone] Anesthesia Event Gastroenterology and Rl, 2 Hepatology Ervin Burgos M.D. [address] [place] [phone] Surgery Gastroenterology and Mousa, Matthew ESOPHAG OGASTRODUODENOSCOPY 2 Hepatology Tyrell Rodriguez M.D. [address] [place] [address] Scheduled Procedures Name Priority Associated Diagnoses Date/Time ESOPHAGOGASTRODUODENOSCOPY Cirrhosis Alc oholic (HCC) 03/20/2022 8:45 AM REGISTRATION SPECIALIST Hypertension Portal (HCC) documented as of this encounter Visit Diagnoses Not on filedocumented in this encounter Additional Health Concerns Assessment Noted Time PHQ-9 Depression Total Score: 10 10/06/2021 5:00 PM CD T documented as of this encounter Care Teams Cinder Block Mason Relationship Specialty Start Date End Date Ana Red P.A.-C. PCP - General Internal Medicine 12/01/[address] [place] [phone] [facility] [place] lab 08/25/21 Ervin Schroeder MD Referring Provider Family Medicine 03/24/[address] [place] [phone] documented as of this encounter
--- OUTSIDE RECORDS SUMMARY | 2022-02-10 09:28 | XMS_ITS | Encounter Summary ---
:1990 Author Organization [facility] Address [address] [place] [address] Care Team Providers Name Role Phone Ana Red P.A.-C. Primary Care Provider [phone] Encounter Details Date Type Department Care Team Description 01/26/2022 Orders Only Pharmacy Prior Auth Nicole Briscoe [phone] Social History Tobacco Use Types Packs/Day Years [...] you attend mormon or Patient refused 2021 rastafarian services? 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 [address] [place] [phone] Telemedicine Transplant Ashtyn 2 Brigid noyola M.D. [address] [place] [address] [phone] Office Visit Community Internal Neda, 2 Solitario Perez P.A.-C. [address] [place] [phone] Lab Laboratory Medicine Karin, 2 Adeline Gannon M.D., Ph.D. [address] [place] [phone] Lab Laboratory Medicine Karin, 2 Adeline Gannon M.D., Ph.D. [address] [place] [phone] Office Visit Transplant Karin, 2 Adeline Gannon M.D., Ph.D. [address] [place] [address] [phone] Office Visit Family Medicine Robbin Maria 2, M.D. [address] [place] [address] [phone] Appointment Radiology Matthew Jerome 2 Y M.B.B.SSuma, MJules [address] [place] [phone] Appointment Gastroenterology and Adrianne, 2 Hepatology Yue Burciaga M.D. [address] [place] [phone] Office Visit Gastroenterology and Matthew Jerome 2 Hepatology Jennifer M.B.B.SSuma, Lilian [address] [place] [phone] Appointment Radiology Matthew Jerome 2 Y M.B.B.SSuma, Lilian [address] [place] [address] [phone] Hospital Gastroenterology and [facility], Matthew Cirrhos is Alcoholic (HCC) 2 Encounter Hepatology Tyrell Rodriguez M.D. [address] [place] [phone] Anesthesia Event Gastroenterology and Rl, 2 Hepatology Ervin Burgos M.D. [address] [place] [address] [phone] Surgery Gastroenterology and [facility], [place] ESOPHAG OGASTRODUODENOSCOPY 2 Hepatology Tyrell Rodriguez, Lilian [address] [place] [phone] Scheduled Procedures Name Priority Associated Diagnoses Date/Time ESOPHAGOGASTRODUODENOSCOPY Cirrhosis Alc oholic (HCC) 03/20/2022 8:45 AM COAL PICKER Hypertension Portal (HCC) documented as of this encounter Visit Diagnoses Not on filedocumented in this encounter Additional Health Concerns Assessment Noted Time PHQ-9 Depression Total Score: 10 10/06/2021 5:00 PM CD T documented as of this encounter Care Teams Systems Software Specialist Relationship Specialty Start Date End Date Ana Red P.A.-C. PCP - General Internal Medicine 12/01/[address] [place] [address] [place] [phone] [facility]- [place] [facility] 08/25/21 Ervin Schroeder MD Referring Provider Family Medicine 03/24/[address] [place] [address] [place] [address] documented as of this encounter
--- OUTSIDE RECORDS SUMMARY | 2022-02-10 09:28 | XMS_ITS | Encounter Summary ---
:1990 Author Organization [facility] Address [address] [place] [address] Care Team Providers Name Role Phone Ana Red P.A.-C. Primary Care Provider [phone] Encounter Details Date Type Department Care [...] How often do you attend synagogue or Patient refused 2021 yazidi services? 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 1025 [place] [phone] 2 Rain Reyes R.N. [address] [place] [phone] Telemedicine Transplant LinaFederico 2 Brigid noyola M.D. [address] [place] [phone] Office Visit Community Internal Neda, 2 Solitario Perez P.A.-C. 300 [place] [phone] Lab Laboratory Medicine Karin, 2 Adeline Gannon M.D., Ph.D. [address] [place] [phone] Lab Laboratory Medicine Joseysarah, 2 Adeline Gannon M.D., Ph.D. [address] [place] [phone] Office Visit Transplant Karin, 2 Adeline Gannon M.D., Ph.D. [address] [place] [phone] Office Visit Family Medicine Robbin Maria 2, M.D. [address] [place] [phone] Appointment Radiology Matthew Jerome 2 Y, M.B.B.S., MJules [address] [place] [phone] Appointment Gastroenterology and Adrianne, 2 Hepatology Yue Burciaga M.D. [address] [place] [phone] Office Visit Gastroenterology and Matthew Jerome 2 Hepatology Jennifer M.B.B.SSuma, MJules [address] [place] [phone] Appointment Radiology Matthew Jerome 2 Y M.B.B.S., Lilian [address] [place] [phone] [facility] Gastroenterology and Mousa, Matthew Cirrhos is Alcoholic (HCC) 2 Encounter Hepatology Tyrell Rodriguez M.D. [address] [place] [phone] Anesthesia Event Gastroenterology and Rl, 2 Hepatology Ervin Burgos M.D. [address] [place] [phone] Surgery Gastroenterology and Mousa, Matthew ESOPHAG OGASTRODUODENOSCOPY 2 Hepatology Tyrell Rodriguez M.D. [address] [place] [phone] Scheduled Procedures Name Priority Associated Diagnoses Date/Time ESOPHAGOGASTRODUODENOSCOPY Cirrhosis Alc oholic (HCC) 03/20/2022 8:45 AM RIDE OPERATOR Hypertension Portal (HCC) documented as of [...] documented as of this encounter Care Teams Truck Manager Relationship Specialty Start Date End Date Ana Red P.A.-C. PCP - General Internal Medicine 12/01/[address] [place] [address] [place] [phone] [facility] 08/25/21 Ervin Schroeder MD Referring Provider Family Medicine 03/24/[address] [place] [address] [place] [address] documented as of this encounter
--- OUTSIDE RECORDS SUMMARY | 2022-02-10 09:28 | XMS_ITS | Encounter Summary ---
:1990 Author Organization [facility] Address [address] [place] [address] Care Team Providers Name Role Phone Ana Red P.A.-C. Primary Care Provider Reason for Visit Reason Comments Pre-visit Testing Orders Encounter Details Date Type Department Care Team Description 01/28/2022 Clinical RST Yue Hung Pre-visit Testing Communication [address] [facility] Lilian Burciaga Orders [place], [place] [address] [place] [phone] [place] [phone] Social History Tobacco Use Types Packs/Day Years [...] you attend sikhism or Patient refused 2021 lutheran services? 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 [address] [place] [phone] Telemedicine Transplant Ashtyn 2 Brigid noyola M.D. [address] [place] [phone] Office Visit Community Internal Neda, 2 Medicine Vernell Perez 300 [place] [address] Lab Laboratory Medicine Karin, 2 Adeline Gannon M.D., Ph.D. [address] [place] [phone] Lab Laboratory Medicine Karin, 2 Adeline Gannon M.D., Ph.D. [address] [place] [phone] Office Visit Transplant Karin, 2 Adeline Gannon M.D., Ph.D. [address] [place] [phone] Office Visit Family Medicine Robbin Maria 2, M.D. 300 [place] [phone] Appointment Radiology Matthew Jerome 2 Y M.B.B.SSuma, MJules 1025 [place] [phone] Appointment Gastroenterology and Adrianne, 2 Hepatology Yue Burciaga M.D. [address] [place] [phone] Office Visit Gastroenterology and Matthew Jerome 2 Hepatology Joshua RodriguezB.B.SLilian Moise 1025 [place] [phone] Appointment Radiology Matthew Jerome 2 YTyerll M.D. [address] [place] [phone] Hospital Gastroenterology and Matthew Jerome Cirrhos is Alcoholic (HCC) 2 Encounter Hepatology Tyrell Rodriguez M.D. [address] [place] [phone] Anesthesia Event Gastroenterology and Rl, 2 Hepatology Ervin Burgos M.D. [address] [place] [phone] Surgery Gastroenterology and [facility] ESOPHAG OGASTRODUODENOSCOPY 2 Hepatology Tyrell Rodriguez M.D. [address] [place] [phone] Scheduled Procedures Name Priority Associated Diagnoses Date/Time ESOPHAGOGASTRODUODENOSCOPY Cirrhosis Alc oholic (HCC) 03/20/2022 8:45 AM TAB CUTTING MACHINE OPERATOR Hypertension Portal (HCC) documented as of this encounter Visit Diagnoses Not on filedocumented in this encounter Additional Health Concerns Assessment Noted Time PHQ-9 Depression Total Score: 10 10/06/2021 5:00 PM CD T documented as of this encounter Care Teams Copy Center Associate Relationship Specialty Start Date End Date Ana Red P.A.-C. PCP - General Internal Medicine 12/01/[address] [place] [address] [place] [phone] [facility] [place] [facility] 08/25/21 Ervin Schroeder MD Referring Provider Family Medicine 03/24/[address] [place] [address] [place] [address] documented as of this encounter
--- OUTSIDE RECORDS SUMMARY | 2022-02-10 09:28 | XMS_ITS | Encounter Summary ---
:1990 Author Organization [facility] Address [address] [place] [address] Care Team Providers Name Role Phone Ana Red P.A.-C. Primary Care Provider [phone] Encounter Details Date Type Department Care [...] How often do you attend congregation or Patient refused 2021 restorationism services? Do you belong to any clubs or No 02/10/2022 organizations such as congregation groups, unions, fraternal [...] completed or the highest technical, or vocational jnen bansal degree you have received? 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 1025 [place] [phone] 2 Rain Reyes R.N. [address] [place] [phone] Telemedicine Transplant LinaFederico 2 Brigid noyola M.D. [address] [place] [phone] Office Visit Community Internal Neda, 2 Solitario Perez P.A.-C. 300 [place] [phone] Lab Laboratory Medicine Karin, 2 Adeline Gannon M.D., Ph.D. [address] [place] [phone] Lab Laboratory Medicine Joseysarah, 2 Adeline Gannon M.D., Ph.D. [address] [place] [phone] Office Visit Transplant Karin, 2 Adeline Gannon M.D., Ph.D. [address] [place] [phone] Office Visit Family Medicine Robbin Maria 2, M.D. [address] [place] [phone] Appointment Radiology Matthew Jerome 2 Y, M.B.B.S., MJules [address] [place] [phone] Appointment Gastroenterology and Adrianne, 2 Hepatology Yue Burciaga M.D. [address] [place] [phone] Office Visit Gastroenterology and Matthew Jerome 2 Hepatology Jennifer M.B.B.SSuma, MJules [address] [place] [phone] Appointment Radiology Matthew Jerome 2 Y M.B.B.S., Lilian [address] [place] [phone] [facility] Gastroenterology and Mousa, Matthew Cirrhos is Alcoholic (HCC) 2 Encounter Hepatology Tyrell Rodriguez M.D. [address] [place] [phone] Anesthesia Event Gastroenterology and Rl, 2 Hepatology Ervin Burgos M.D. [address] [place] [phone] Surgery Gastroenterology and Mousa, Matthew ESOPHAG OGASTRODUODENOSCOPY 2 Hepatology Tyrell Rodriguez M.D. [address] [place] [phone] Scheduled Procedures Name Priority Associated Diagnoses Date/Time ESOPHAGOGASTRODUODENOSCOPY Cirrhosis Alc oholic (HCC) 03/20/2022 8:45 AM INTERVENTION SPECIALIST Hypertension Portal (HCC) documented as of [...] as of this encounter Care Teams Industrial Hygenist Relationship Specialty Start Date End Date Ana Red P.A.-C. PCP - General Internal Medicine 12/01/[address] [place] [address] ADI Chua [phone] [facility] 08/25/21 Ervin Schroeder MD Referring Provider Family Medicine 03/24/[address] [place] [address] AD[place] Mejía [address] documented as of this encounter
--- OUTSIDE RECORDS SUMMARY | 2022-02-10 09:28 | XMS_ITS | Encounter Summary ---
:1990 Author Organization [facility] Address [address] [place] [address] Care Team Providers Name Role Phone Ana Red P.A.-C. 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) Procedures ED ADMIT Referral ID Status Reason Start Date Expiration Date Visits Requ ested Visits Authorized [id number] 1 1 Encounter Details Date Type Department Care Team Description 01/26/2022 Anesthesia Event Division of Gildardo Hickey APRN, ANTHROPOLOGY DEPARTMENT CHAIR, DNAP [address] [place] [phone] Gastroenterology in [place]ia [place] APRN, ANTHROPOLOGY DEPARTMENT CHAIR, DNAP [address] [place] [phone] [place], [place] [address] [place] [phone] Anesthesia Record Procedure Summary Procedure Name Responsible Anesthesia Start Anesthesia Stop Time Anesthesiologist Time EGD Gildardo Hickey APRN, 01/26/22 1538 01/26/22 1645 (ESOPHAGEALGASTRODU ANTHROPOLOGY DEPARTMENT CHAIR, DNAP ODENOSCOPY) Events Date Time Event Comment [...] h andoff to the receiving staff during [facility] we 1. Identified the patient 2. Ident [...] Brown, St ephen E, (created via procedure WATER TREATMENT PLANT REPAIRER, ANTHROPOLOGY DEPARTMENT CHAIR, DNAP WATER TREATMENT PLANT REPAIRER, CR NA, DNAP documentation); Mask Ventilation: Not [...] el, Anna C Catheter Size: 18 G; WATER TREATMENT PLANT REPAIRER, ANTHROPOLOGY DEPARTMENT CHAIR, DNAP Orientation: Right; Location: Wrist; Inserted by: [...] How often do you attend nondenominational or Patient refused 2021 mu-ism services? Do you belong to any clubs or No 02/10/2022 organizations such as nondenominational groups, unions, fraternal [...] or the highest technical, or vocational p [facility] degree you have received? 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 Risks/Benefits/Alternatives of Blood transfusion discussed with patient [...] Transplant Matthew Jerome M .B.B.S., Lilian [address] [place] [phone] 2 Rain Reyes R.N. [address] [place] [phone] Telemedicine Transplant LinaFederico 2 Brigid noyola M.D. [address] [place] [phone] Office Visit Community Internal [facility], 2 Medicine Vernell Perez 300 [place] [phone] Lab Laboratory Medicine Karin, 2 Adeline Gannon M.D., Ph.D. [address] [place] [phone] Lab Laboratory Medicine Karin, 2 Adeline Gannon M.D., Ph.D. [address] [place] [phone] Office Visit Transplant Karin, 2 Adeline Gannon M.D., Ph.D. [address] [place] [phone] Office Visit Family Medicine Robbin Maria 2, M.D. 300 [place] [phone] Appointment Radiology Matthew Jerome 2 Tyrell Rodriguez M.D. [address] [place] [phone] Appointment Gastroenterology and Adrianne 2 Hepatology Yue Burciaga M.D. [address] [place] [phone] Office Visit Gastroenterology and Matthew Jerome 2 Hepatology Tyrell Rodriguez M.D. [address] [place] [phone] Appointment Radiology Matthew Jerome 2 Tyrell Rodriguez M.D. [address] [place] [phone] Hospital Gastroenterology and Queenie Matthew Cirrhos is Alcoholic (HCC) 2 Encounter Hepatology Tyrell Rodriguez M.D. [address] [place] [phone] Anesthesia Event Gastroenterology and Rl, 2 Hepatology Ervin Burgos M.D. [address] [place] [phone] Surgery Gastroenterology and LuischantellMatthew ESOPHAG OGASTRODUODENOSCOPY 2 Hepatology Tyrell Rodriguez M.D. [address] [place] [phone] Scheduled Procedures Name Priority Associated Diagnoses Date/Time ESOPHAGOGASTRODUODENOSCOPY Cirrhosis Alc oholic (HCC) 03/20/2022 8:45 AM WIND ENERGY PROJECT MANAGER Hypertension Portal (HCC) documented as of this encounter Procedures Procedure Name Priority Date/Time Associated Comments Diagnosis LDA ANE ENDOTRACHEAL Routine 01/26/2022 3:51 PM R esults for this AIRWAY CDT procedure are i n the results section. documented in this encounter Results LDA ANE ENDOTRACHEAL AIRWAY (01/26/2022 3:51 PM CDT) Narrative Gildardo Hickey APRN, CRNA DNAShanita - 3:51 PM CDT Gildardo Hickey APRN, CRNA DNAShanita ? 01/26/2022 ??4:08 PM Airway Date/Time: 01/26/2022 3:51 PM Performed by: Gildardo Hiceky APRN, CR NA, DNAP Authorized by: Gildardo Hickey APRN, C RNA DNAP Patient location during procedure: OR / [...] Gildardo Hickey APRN, CRNA, DNAP ANESTHESIA ORDERABLES documented in this encounter [...] documented as of this encounter Care Teams Alodize Machine Operator Relationship Specialty Start Date End Date Ana Red P.A.-C. PCP - General Internal Medicine 12/01/[address] [place] [address] Sadia BAYADI WRIGHT [phone] [facility]- [facility], [facility] 08/25/21 Ervin Schroeder MD Referring Provider Family Medicine 03/24/[address] [place] [phone] documented as of this encounter
--- OUTSIDE RECORDS SUMMARY | 2022-02-10 09:28 | XMS_ITS | Encounter Summary ---
:1990 Author Organization [facility] Address [address] [place] [address] Care Team Providers Name Role Phone Ana Red P.A.-C. Primary Care Provider [phone] Reason for Visit Reason Comments Rx Prior Authorization ASHLEY DENIED - LIDOCAINE 5% PAT CH Encounter Details Date Type Department Care Team Description 01/26/2022 Clinical Communication Pharmacy Prior Auth Christopher, Rx Prior RO Nicole A Authorization (ASHLEY [phone] DENIED - LIDOCA INE 5% PATCH) Social [...] you attend zoroastrian or Patient refused 2021 congregation services? Do you belong to any clubs or No 02/10/2022 organizations such as zoroastrian groups, unions, fraAdvent Engineering or athletic groups, or school groups? How [...] or the highest technical, or vocational p [facility] degree you have received? 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 [address] [place] [phone] 2 Rain Reyes R.N. [address] [place] [phone] Telemedicine [facility] 2 Brigid noyola M.D. [address] [place] [phone] [facility] 2 Medicine Vernell Perez [address] [place] [phone] Lab Laboratory Medicine Karin, Olinda Gannon M.D., Ph.D. [address] [place] [phone] Lab Laboratory Medicine Olinda Frazier M.D., Ph.D. [address] [place] [phone] Office Visit Transplant Olinda Frazier M.D., Ph.D. [address] [place] [phone] Office Visit Family Medicine Robbin Maria 2, M.D. [address] [place] [phone] Appointment Radiology Matthew Jerome 2 YJoshuaBSumaBLilian Bedolla [address] [place] [phone] Appointment Gastroenterology and Adrianne, 2 Hepatology Yue Burciaga M.D. [address] [place] [phone] Office Visit Gastroenterology and Queenie Matthew 2 Hepatology Joshua RodriguezBSumaBLilian Bedolla [address] [place] [phone] Appointment Radiology Matthew Jerome 2 YJoshuaB.BLilian Bedolla [address] [place] [phone] Hospital Gastroenterology and [facility] Cirrhos is Alcoholic (HCC) 2 Encounter Hepatology Joshua RodriguezB.B.Lilian [place] [address] [place] [phone] Anesthesia Event Gastroenterology and Rl, 2 Hepatology Ervin Burgos M.D. [address] [place] [phone] [facility] G[facility] Matthew ESOPHAG OGASTRODUODENOSCOPY 2 Hepatology Joshua RodriguezB.B.Lilian [place] [address] [place] [phone] Scheduled Procedures Name Priority Associated Diagnoses Date/Time ESOPHAGOGASTRODUODENOSCOPY Cirrhosis Alc oholic (HCC) 03/20/2022 8:45 AM NETWORK SYSTEMS CONSULTANT Hypertension Portal (HCC) documented as of this encounter Visit Diagnoses Not on filedocumented in this encounter Additional Health Concerns Assessment Noted Time PHQ-9 Depression Total Score: 10 10/06/2021 5:00 PM CD T documented as of this encounter Care Teams Sandblast Or Shotblast Equipment Tender Relationship Specialty Start Date End Date Ana Red P.A.-C. PCP - General Internal Medicine 12/01/[address] [place] [phone] [facility] [place] [facility] 08/25/21 Ervin Schroeder MD Referring Provider Family Medicine 03/24/[address] [place], [place] [address] [address] documented as of this encounter
--- OUTSIDE RECORDS SUMMARY | 2022-02-10 09:28 | XMS_ITS | Encounter Summary ---
:1990 Author Organization [facility] Address [address] [place] [address] Care Team Providers Name Role Phone Ana Red P.A.-C. Primary Care Provider [phone] Reason for Referral Physical Therapy (Routine) - Authorized Specialty Diagnoses / Procedures Referred By Contact Refer red To Contact Diagnoses Pain Low Back Unspecified Ana Red P.A.-C. [address] [facility] [place] [address] Referral ID Status Reason Start Expiration Visits Visits Date Date Requested Authorized [id number] Authorized Service not 01/20/2022 01/20/2023 1 1 available in [facility] Reason for Visit Reason Comments Hepatic Encephalopathy [...] Expiration Date Visits Requ ested Visits Authorized [id number] Closed 01/13/2022 01/13/2023 1 1 Encounter Details Date Type Department Care Team Description 01/20/2022 Office Visit Department of [facility], Pain Low Back Unspecified (Primary Dx); Community Internal Frances PerezASuma Ortega. Cirrhosis Alcoholic (HCC); Medicine in [place] [address] Ascites; [place], [place] Long QT Syndrome; [address] [phone] Rhinitis Allergic; [place], [place] [phone] Alcohol Use Un specified With Unspecified Alcohol Induced Disorder (HCC) [phone] (Work) [phone] Social History Tobacco Use Types Packs/Day Years [...] How often do you attend tenriism or Patient refused 2021 lutheran services? 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 Unresponsiveness in ER. Patient is [...] post hospital follow-up. 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 She feels [...] week. She has a EGD scheduled in [place] for early January to assess for esophageal varices. #4 Pain Low Back Unspecified We put through a physical therapy order to [facility] today for back pain. I did refill flexeril for patient to use once daily. She is also using lidocaine patches [id number]-[id number] and I did send these in for her via prescription but they are going through a prior authorization process. - External referral PT (non-[facility]) #5 Rhinitis Allergic She is wondering if she can use an sjcz-pqm-cgtgygr nasal spray for allergies. I recommended flonase. [...] Her home nurse is Misbah Crook with [facility]. Ana Red P.A.-C. Update: Notified of MOS[facility] on labs today by hospital provider. Patient has been contacted to report to the ED for albumin infusion and to hold her diuretics. documented in this encounter Plan of Treatment Upcoming Encounters Date Type Specialty Care Team Description Virtual Visit Transplant Matthew Jerome M .B.B.S., M.Slick. [address] [place] [address] 2 Rain Reyes R.N. [address] [place] [address] Telemedicine Transplant LinaFederico 2 Brigid noyola M.D. [address] [place] [address] [phone] Office Visit Community Internal Carlos, 2 Medicine Vernell Perez [address] [place] [address] Lab Laboratory Medicine Karin, 2 Adeline Gannon M.D., Ph.D. [address] [place] [phone] Lab Laboratory Medicine Karin, 2 Adeline Gannon M.D., Ph.D. [address] [place] [address] [phone] Office Visit Transplant Karin, 2 Adeline Gannon M.D., Ph.D. [address] [place] [address] [phone] Office Visit Family Medicine Robbin Maria 2, M.D. 300 [place] [address] Appointment Radiology Matthew Jerome 2 M.B.B.SSuma, M.DSuma [address] [place] [phone] Appointment Gastroenterology and Adrianne 2 Hepatology Yue Burciaga M.D. [address] [place] [address] [phone] Office Visit Gastroenterology and Matthew Jerome 2 Hepatology Joshua RodriguezB.Lilian Salas [address] [place] [address] [phone] Appointment Radiology Queenie Matthew 2 YTyrell M.D. [address] [place] [phone] Hospital Gastroenterology and Orchantell Matthew Cirrhos is Alcoholic (HCC) 2 Encounter Hepatology Tyrell Rodriguez M.D. [address] [place] [phone] Anesthesia Event Gastroenterology and Rl, 2 Hepatology Ervin Burgos M.D. [address] [place] [address] [phone] Surgery Gastroenterology and Orchantell Matthew ESOPHAG OGASTRODUODENOSCOPY 2 Hepatology Tyrell Rodriguez M.D. 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 PCP - General Internal Medicine 12/01/[address] [place] [address] ADI Chua [phone] [facility]- [place] lab 08/25/21 Ervin Schroeder MD Referring Provider Family Medicine 03/24/[address] [place], [place] [phone] documented as of this encounter
--- OUTSIDE RECORDS SUMMARY | 2022-02-10 09:28 | XMS_ITS | Encounter Summary ---
:1990 Author Organization [facility] Address [address] [place] [address] Care Team Providers Name Role Phone Ana Red P.A.-C. Primary Care Provider [phone] Encounter Details Date Type Department Care Team Description 01/20/2022 Hospital Encounter Department of [facility] Hepati c Failure Laboratory Medicine Lilian Schaefer Unspecified Without in [place], [address] [facility] Coma (HCC) [place], [place] [address] [address] [place] [phone] [address] (Work) [phone] Social History Tobacco Use Types Packs/Day Years [...] you attend scientology or Patient refused 2021 sikh services? 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 [address] [place] [phone] Telemedicine Transplant [facility] 2 Brigid noyola M.D. [address] [place] [phone] Office Visit [facility] Internal Neda, 2 Medicine Vernell Perez 300 [place] [phone] Lab Laboratory Medicine Olinda Frazier M.D., Ph.D. [address] [place] [phone] Lab Laboratory Medicine Olinda Frazier M.D., Ph.D. [address] [place] [phone] Office Visit Transplant Karin, 2 Adeline Gannon M.D., Ph.D. [address] [place] [phone] Office Visit Family Medicine Robbin Maria 2, M.D. 300 [place] [phone] Appointment Radiology Matthew Jerome 2 YVikBGraeme, Lilian [address] [place] [phone] Appointment Gastroenterology and Adrianne, 2 Hepatology Yue Burciaga M.D. [address] [place] [phone] Office Visit Gastroenterology and Matthew Jerome 2 Hepatology Vik RodriguezBGraeme, Lilian [address] [place] [phone] Appointment Radiology Matthew Jerome 2 YJoshuaB.BSumaSLilian Moise [address] [place] [phone] Hospital Gastroenterology and Matthew Jerome Cirrhos is Alcoholic (HCC) 2 Encounter Hepatology Vik RodriguezBLilian Bedolla [address] [place] [phone] Anesthesia Event Gastroenterology and Rl, 2 Hepatology Ervin Burgos M.D. [address] [place] [address] Surgery Gastroenterology and Mousa, Matthew ESOPHAG OGASTRODUODENOSCOPY 2 Hepatology Tyrell Rodriguez M.D. 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 Hypertension Portal (HCC) documented as of [...] with Differential, Blood (01/20/2022 12:07 PM CDT) [facility] Method Time Signature Hemoglobin 7.4 (L) [...] Organization Address City/State/ZIP Code Phon e Number [address] [place] [address] [facility] [place] [address] [address] (ABNORMAL) Comprehensive Metabolic Panel (01/20/2022 12:07 PM [...] Organization Address City/State/ZIP Code Phon e Number [facility]- [address] [place] [address] [facility] [place] [address] System in [place] [address] documented in this encounter Visit Diagnoses Diagnosis Cirrhosis Alcoholic (HCC) Hypertension Portal (HCC) Hepatic Failure Unspecified Without Coma (HCC) Cirrhosis Alcoholic (HCC) Hypertension Portal (HCC) documented in this encounter Additional Health Concerns Assessment Noted Time PHQ-9 Depression Total Score: 10 10/06/2021 5:00 PM CD T documented as of this encounter Care Teams Finishing Range Operator Relationship Specialty Start Date End Date Ana Red P.A.-C. PCP - General Internal Medicine 12/01/[address] [place] [phone] [facility]- [place] lab 08/25/21 Ervin Schroeder MD Referring Provider Family Medicine 03/24/[address] [place] [address] documented as of this encounter
--- OUTSIDE RECORDS SUMMARY | 2022-02-10 09:28 | XMS_ITS | Encounter Summary ---
:1990 Author Organization [facility] Address [address] [place] [address] Care Team Providers Name Role Phone Ana Red P.A.-C. Primary Care Provider Reason for Visit Reason Comments Med Refill Encounter Details Date Type Department Care Team Description 01/20/2022 Refill Department of [facility] Ana Red , Med Refill Internal Medicine in P.A[place]C. [place], [place] 300 [facility] 300 [place] [address] [place] [address] [phone] Social History Tobacco Use Types Packs/Day Years [...] you attend shinto or Patient refused 2021 cheondoism services? Do you belong to any clubs or No 02/10/2022 organizations such as shinto groups, unions, fraIdentiv or athletic groups, or school groups? 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 [address] [place] [address] [phone] Telemedicine Transplant LinaFederico 2 Brigid noyola M.D. [address] [place] [phone] Office Visit Community Internal Neda, Olinda Medicine Vernell Perez 300 [place] [phone] Lab Laboratory Medicine Karin, 2 Adeline Gannon M.D., Ph.D. [address] [place] [phone] Lab Laboratory Medicine Karin, 2 Adeline Gannon M.D., Ph.D. [address] [place] [phone] Office Visit Transplant Karin, 2 Adeline Gannon M.D., Ph.D. [address] [place] [phone] Office Visit Family Medicine Robbin Maria 2, M.D. 300 [place] [phone] Appointment Radiology Matthew Jerome 2 M.B.B.SLilian Moise [address] [place] [phone] Appointment Gastroenterology and Adrianne 2 Hepatology Yue Burciaga M.D. [address] [place] [phone] Office Visit Gastroenterology and Matthew Jerome 2 Hepatology Joshua RodriguezB.B.SLilian Moise [address] [place] [phone] Appointment Radiology [facility] 2 Tyrell Rodriguez M.D. [address] [place] [phone] Hospital Gastroenterology and [facility] Cirrhos is Alcoholic (HCC) 2 Encounter Hepatology Tyrell Rodriguez M.D. [address] [place] [phone] Anesthesia Event Gastroenterology and Rl, 2 Hepatology Ervin Burgos M.D. [address] [place] [phone] Surgery Gastroenterology and [facility] ESOPHAG OGASTRODUODENOSCOPY 2 Hepatology Tyrell Rodriguez M.D. 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 PCP - General Internal Medicine 12/01/[address] [place], [place] [address] [phone] [facility]- [place] lab 08/25/21 Ervin Schroeder MD Referring Provider Family Medicine 03/24/[address] [place] [address] [place] [address] documented as of this encounter
--- OUTSIDE RECORDS SUMMARY | 2022-02-10 09:28 | XMS_ITS | Encounter Summary ---
:1990 Author Organization [facility] Address [address] [place] [address] Care Team Providers Name Role Phone Ana Red P.A.-C. Primary Care Provider [phone] Encounter Details Date Type Department Care Team Description 01/20/2022 Orders Only Pharmacy Prior Auth Lina Raphael [phone] Social History Tobacco Use Types Packs/Day Years [...] How often do you attend advent or Patient refused 2021 church services? Do you belong to any clubs or No 02/10/2022 organizations such as advent groups, unions, fraternal [...] or the highest technical, or vocational [facility] degree you have received? 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 10[address] [place] [address] 2 Rain Reyes R.N. [address] [place] [address] [phone] Telemedicine Transplant LinaFederico 2 Brigid noyola M.D. [address] [place] [address] [phone] Office Visit Community Internal Neda, 2 Solitario Perez P.A.-C. [address] [place] [phone] Lab Laboratory Medicine Karin, Olinda Gannon M.D., Ph.D. [address] [place] [phone] Lab Laboratory Medicine Karin, 2 Adeline Gannon M.D., Ph.D. [address] [place] [phone] Office Visit Transplant Karin, 2 Adeline Gannon M.D., Ph.D. [address] [place] [phone] Office Visit Family Medicine Robbin Maria 2, M.D. [address] [place] [phone] Appointment Radiology Matthew Jerome 2 Y, M.B.B.SSuma, Lilian [address] [place] [phone] Appointment Gastroenterology and Adrianne, 2 Hepatology Yue Burciaga M.D. [address] [place] [phone] Office Visit Gastroenterology and Matthew Jerome 2 Hepatology Jennifer M.B.B.SLilian Moise [address] [place] [phone] Appointment Radiology Matthew Jerome 2 Y M.B.B.SLilian Moise [address] [place] [phone] Hospital Gastroenterology and Mousa, Matthew Cirrhos is Alcoholic (HCC) 2 Encounter Hepatology Tyrell Rodriguez, Lilian [address] [place] [phone] Anesthesia Event Gastroenterology and Rl, 2 Hepatology Ervin Burgos M.D. 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 PCP - General Internal Medicine 12/01/[address] [place] [address] [place] [phone] [facility]- [place] [facility] 08/25/21 Ervin Schroeder MD Referring Provider Family Medicine 03/24/[address] [place] [address] [place] [address] documented as of this encounter
--- OUTSIDE RECORDS SUMMARY | 2022-02-10 09:28 | XMS_ITS | Encounter Summary ---
:1990 Author Organization [facility] Address [address] [place] [address] Care Team Providers Name Role Phone Ana Red P.A.-C. Primary Care Provider Reason for Visit Reason Comments Form Review [facility] med rec onciliation Encounter Details Date Type Department Care Team Description 01/22/2022 Clinical Communication Department of [facility], Form Review [facility] Internal Ana, ([facility] Home Medicine in [place] [address] reconciliation) [place] 300 [facility] [address] [facility] [place] [phone] [address] (Work) [phone] Social History Tobacco Use Types Packs/Day Years [...] How often do you attend jainism or Patient refused 2021 cheondoism services? Do you belong to any clubs or No 02/10/2022 organizations such as jainism groups, unions, fraternal [...] the highest technical, or vocational p [facility] degree you have received? 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 Telephone Encounter - Marlene Ceron - 01/22/2022 1:21 PM CDT Form was emailed to Ana Red PA-C for electronic review/signature. CERTIFIED REGISTERED NURSE PRACTITIONER: [facility] PHONE NUMBER: [phone] INFO REQUESTED: medication reconciliation INSTRUCTIONS: Fax form to [phone] documented in this encounter Plan of Treatment Upcoming Encounters Date Type Specialty Care Team Description Virtual Visit Transplant Matthew Jerome M .B.B.S., MJules [address] [place] [address] 2 Rain Reyes R.N. [address] [place] [phone] Telemedicine Transplant Ashtyn 2 Brigid noyola M.D. [address] [place] [phone] Office Visit [facility] 2 Medicine Vernell Perez [address] [place] [address] Lab Laboratory Medicine Karin, 2 Adeline Gannon M.D., Ph.D. [address] [place] [phone] Lab Laboratory Medicine Karin 2 Adeline Gannon M.D., Ph.D. [address] [place] [phone] Office Visit Transplant Karin 2 Adeline Gannon M.D., Ph.D. [address] [place] [phone] Office Visit Family Medicine Robbin Maria 2, M.D. [address] [place] [address] [place] [phone] Appointment Radiology Matthew Jerome 2 Tyrell Rodriguez M.D. [address] [place] [phone] Appointment Gastroenterology and Adrianne, 2 Hepatology Yue Burciaga M.D. [address] [place] [phone] Office Visit Gastroenterology and Matthew Jerome 2 Hepatology Tyrell Rodriguez M.D. [address] [place] [phone] Appointment Radiology Matthew Jerome 2 Tyrell Rodriguez M.D. [address] [place] [phone] Hospital Gastroenterology and Matthew Jerome Cirrhos is Alcoholic (HCC) 2 Encounter Hepatology Tyrell Rodriguez M.D. [address] [place] [phone] Anesthesia Event Gastroenterology and Rl, 2 Hepatology Ervin Burgos M.D. 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 PCP - General Internal Medicine 12/01/[address] [place] [phone] [facility]- [place] lab 08/25/21 Ervin Schroeder MD Referring Provider Family Medicine 03/24/[address] [place] [address] documented as of this encounter
--- OUTSIDE RECORDS SUMMARY | 2022-02-10 09:28 | XMS_ITS | Encounter Summary ---
:1990 Author Organization [facility] Address [address] [place] [address] Care Team Providers Name Role Phone Ana Red P.A.-C. Primary Care Provider [phone] Encounter Details Date Type Department Care Team Description 01/27/2022 Orders Only Pharmacy Prior Auth RO Yolande Evi Loretta [phone] Social History Tobacco Use Types Packs/Day Years [...] How often do you attend uatsdin or Patient refused 2021 voodoo services? 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 [address] [place] [address] [phone] Telemedicine Transplant Ashtyn 2 Brigid noyola M.D. [address] [place] [address] [phone] Office Visit Community Internal Neda, 2 Solitario Perez P.A.-C. [address] [place] [phone] Lab Laboratory Medicine Karin, 2 Adeline Gannon M.D., Ph.D. [address] [place] [phone] Lab Laboratory Medicine Karin, 2 Adeline Gannon M.D., Ph.D. [address] [place] [phone] Office Visit Transplant Karin, 2 Adeline Gannon M.D., Ph.D. [address] [place] [address] [phone] Office Visit Family Medicine Robbin Maria 2, M.D. [address] [place] [address] [phone] Appointment Radiology Matthew Jerome 2 Y M.B.B.SSuma, MJules [address] [place] [phone] Appointment Gastroenterology and Adrianne, 2 Hepatology Yue Burciaga M.D. [address] [place] [phone] Office Visit Gastroenterology and Matthew Jerome 2 Hepatology Jennifer M.B.B.SSuma, Lilian [address] [place] [phone] Appointment Radiology Matthew Jerome 2 Y M.B.B.SSuma, Lilian [address] [place] [address] [phone] Hospital [facility], Matthew Cirrhos is Alcoholic (HCC) 2 Encounter Hepatology Tyrell Rodriguez M.D. [address] [place] [phone] Anesthesia Event Gastroenterology and Rl, 2 Hepatology Ervin Burgos M.D. [address] [place] [address] [phone] Surgery Gastroenterology and [facility] [place] ESOPHAG OGASTRODUODENOSCOPY 2 Hepatology Tyrell Rodriguez, Lilian [address] [place] [phone] Scheduled Procedures Name Priority Associated Diagnoses Date/Time ESOPHAGOGASTRODUODENOSCOPY Cirrhosis Alc oholic (HCC) 03/20/2022 8:45 AM ROBOTIC TECHNICIAN Hypertension Portal (HCC) documented as of this encounter Visit Diagnoses Not on filedocumented in this encounter Additional Health Concerns Assessment Noted Time PHQ-9 Depression Total Score: 10 10/06/2021 5:00 PM CD T documented as of this encounter Care Teams Head Trimmer Relationship Specialty Start Date End Date Ana Red P.A.-C. PCP - General Internal Medicine 12/01/[address] [place] [address] [place] [phone] [facility]- [place] lab 08/25/21 Ervin Schroeder MD Referring Provider Family Medicine 03/24/[address] [place] [address] [place] [address] documented as of this encounter
--- OUTSIDE RECORDS SUMMARY | 2022-02-10 09:28 | XMS_ITS | Encounter Summary ---
:1990 Author Organization [facility] Address [address] [place] [address] Care Team Providers Name Role Phone Ana [...] Expiration Date Visits Requ ested Visits Authorized [id number] 1 1 Encounter Details Date Type Department Care Team Description 01/23/2022 Anesthesia Event Division of Gastroenterology Allegra Cronin in [facility] pedro Wilkes APRN, DATA ENTRY TECHNICIAN [address] [facility] [address] [place] [address] [place], [place] [phone] Anesthesia Record Procedure Summary Procedure Name Responsible Anesthesia Start Anesthesia Stop Time Anesthesiologist Time EGD Allegra Cronin APRN, 01/23/22 1529 2 1552 (ESOPHAGEALGASTRODU DATA ENTRY TECHNICIAN ODENOSCOPY) Events Date Time Event Comment 01/23/2022 1529 An Start Machine/Equipmen t Checked Infection Precautions Foll owed Procedure/Site Verified NPO Sta tus Verified Supine Standard ASA Mon itors Applied 1534 Turnover to Proceduralist 1539 Proc Start 1543 Proc Fin 1546 Turnover to ANE Staff 1547 an stop data 1552 An End I completed my h andoff to the receiving staff during [facility] we 1. Identified the patient 2. [...] How often do you attend christianity or Patient refused 2021 religion services? Do you belong to any clubs or No 02/10/2022 organizations such as christianity groups, unions, fraternal [...] or the highest technical, or vocational [facility] degree you have received? Sex Assigned at Date Recorded Female 04/12/2021 7:39 PM ELIGIBILITY CLERK documented as of this encounter OR Notes Anesthesia Postprocedure Evaluation - Allegra Cronin APRN, CRNA - 01/23/2022 3:52 PM CDT Patient: Catia Carias Procedure Summary Date: 01/23/22 Room / Location: Division of Gastroenterology in [place], [place] Anesthesia Start: 1528 Anesthesia Stop: 1551 [...] EGD (ESOPHAGEALGASTRODUODENOSCOPY) Location: Division of Gastroenterology in [place], [place] Pertinent components of the patient's history [...] with patient /legal guardian or through an cement truck loader. Risks/Benefits/Alternatives of Blood transfusion discussed with patient [...] Transplant Matthew Jerome M .B.B.S., MJules [address] [place] [address] 2 Rain Reyes R.N. [address] [place] [phone] Telemedicine Transplant Ashtyn 2 Brigid noyola M.D. [address] [place] [phone] Office Visit Community Internal Neda, 2 Medicine Vernell Perez [address] [place] [address] Lab Laboratory Medicine Karin, 2 Adeline Gannon M.D., Ph.D. [address] [place] [phone] Lab Laboratory Medicine Karin, 2 Adeline Gannon M.D., Ph.D. [address] [place] [phone] Office Visit Transplant Karin, 2 Adeline Gannon M.D., Ph.D. [address] [place] [phone] Office Visit Family Medicine Robbin Maria 2, M.D. 300 [place] [phone] Appointment Radiology Matthew Jerome 2 YTyrell, MJules [address] [place] [phone] Appointment Gastroenterology and Adrianne, 2 Hepatology Yue Burciaga M.D. [address] [place] [phone] Office Visit Gastroenterology and [facility] 2 Hepatology Tyrell Rodriguez M.D. [address] [place] [phone] Appointment Radiology Mschantell Matthew 2 Tyrell Rodriguez M.D. [address] [place] [phone] Hospital Gastroenterology and [facility] Cirrhos is Alcoholic (HCC) 2 Encounter Hepatology Tyrell Rodriguez M.D. [address] [place] [phone] Anesthesia Event Gastroenterology and Rl, 2 Hepatology Ervin Burgos M.D. [address] [place] [phone] Surgery Gastroenterology and [facility] ESOPHAG OGASTRODUODENOSCOPY 2 Hepatology Tyrell Rodriguez M.D. [address] [place] [phone] Scheduled Procedures Name Priority Associated Diagnoses Date/Time ESOPHAGOGASTRODUODENOSCOPY Cirrhosis Alc oholic (HCC) 03/20/2022 8:45 AM ELIGIBILITY CLERK Hypertension Portal (HCC) documented as of this [...] as of this encounter Care Teams Medical Insurance Biller Relationship Specialty Start Date End Date Ana Red P.A.-C. PCP - General Internal Medicine 12/01/[address] [place] [address] ADI PANIAGUA [phone] [facility]- [facility] 08/25/21 Ervin Schroeder MD Referring Provider Family Medicine 03/24/[address] [place] [address] [place] [address] documented as of this encounter
--- OUTSIDE RECORDS SUMMARY | 2022-02-10 09:29 | XMS_ITS | Encounter Summary ---
:1990 Author Organization [facility] Address [address] [place] [address] Care Team Providers Name Role Phone Ana Red P.A.-C. Primary Care Provider [phone] Encounter Details Date Type Department Care Team Description 01/19/2022 Clinical Communication [facility] in [address] [phone] [place], [place] [phone] (Work) [phone] Social History Tobacco Use Types Packs/Day Years [...] How often do you attend samaritan or Patient refused 2021 mormon services? Do you belong to any clubs or No 02/10/2022 organizations such as samaritan groups, unions, fraternal [...] or the highest technical, or vocational p [facility] degree you have received? 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 [phone] Is it okay to leave a detailed message? yes What is the patient's request? Can she go back up to 100 mg of Lasix? Medication name/dose: furosemide (LASIX) 20 mg tablet Recent changes/new symptoms/side effects: new water retention in legs What pharmacy are you using today? [facility] Additional comments (if any): Last week patient was in [place] and they cut her furosemide (LASIX)20 mg [...] symptoms or side effects, please route to STEWARD/STEWARDESS WINE pool of prescribing provider - if new symptoms or having side effects, please transfer to off-site triage ([phone]) documented in this encounter Plan of Treatment Upcoming Encounters Date Type Specialty Care Team Description Virtual Visit Transplant Matthew Jerome M .B.B.S., M.D. [address] [place] [address] 2 Rain Reyes R.N. [address] [place] [address] [phone] Telemedicine Transplant Ashtyn 2 Brigid noyola M.D. [address] [place] [phone] Office Visit Community Internal Carlos, 2 Medicine Vernell Perez 300 [place] [address] Lab Laboratory Medicine Karin, 2 Adeline Gannon M.D., Ph.D. [address] [place] [phone] Lab Laboratory Medicine Karin, 2 Adeline Gannon M.D., Ph.D. [address] [place] [address] [phone] Office Visit Transplant Karin, 2 Adeline Gannon M.D., Ph.D. [address] [place] [phone] Office Visit Family Medicine Robbin Maria 2, M.D. 300 [place] [phone] Appointment Radiology Matthew Jerome 2 Y, VikBGraeme, MJules [address] [place] [phone] Appointment Gastroenterology demian [place], 2 Hepatology Yue Burciaga M.D. [address] [place] [address] [phone] Office Visit Gastroenterology and [facility] 2 Hepatology Tyrell Rodriguez M.D. [address] [place] [phone] Appointment Radiology [facility] 2 YTyrell M.D. [address] [place] [phone] Hospital Gastroenterology and [facility] Cirrhos is Alcoholic (HCC) 2 Encounter Hepatology Tyrell Rodriguez M.D. [address] [place] [phone] Anesthesia Event Gastroenterology and Rl, 2 Hepatology Ervin Burgos M.D. [address] [place] [address] [phone] Surgery Gastroenterology and [facility] ESOPHAG OGASTRODUODENOSCOPY 2 Hepatology Tyrell Rodriguez M.D. [address] [place] [phone] Scheduled Procedures Name Priority Associated Diagnoses Date/Time ESOPHAGOGASTRODUODENOSCOPY Cirrhosis Alc oholic (HCC) 03/20/2022 8:45 AM LENS MOLD SETTER Hypertension Portal (HCC) documented as of this encounter Visit Diagnoses Not on filedocumented in this encounter Additional Health Concerns Assessment Noted Time PHQ-9 Depression Total Score: 10 10/06/2021 5:00 PM CD T documented as of this encounter Care Teams Structural Manager Relationship Specialty Start Date End Date Ana Red P.A.-C. PCP - General Internal Medicine 12/01/[address] [place] [address] ADI Chua [phone] [facility] Ervin Schroeder MD Referring Provider Family Medicine 03/24/[address] [place] [address] documented as of this encounter
--- OUTSIDE RECORDS SUMMARY | 2022-02-10 09:29 | XMS_ITS | Encounter Summary ---
:1990 Author Organization [facility] Address [address] [place] [address] Care Team Providers Name Role Phone Ana Red SumaASumaC. Primary Care Provider [phone] Encounter Details Date Type Department Care Team Description 01/19/2022 Orders Only Department of Counts Include 234 [facility] Ana Red , Internal Medicine [place] 300 [facility] 300 [facility] [place] [phone] (Wo rk) Social History Tobacco [...] often do you attend oriental orthodox or Patient refused 2021 lutheran services? 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 [address] [place] [phone] 2 Rain Reyes R.N. [address] [place] [phone] Telemedicine Transplant LinaFederico 2 Brigid noyola M.D. [address] [place] [address] [phone] Office Visit Community Internal Neda, 2 Medicine Vernell Perez 300 [place] [address] Lab Laboratory Medicine Karin, 2 Adeline Gannon M.D., Ph.D. [address] [place] [phone] Lab Laboratory Medicine Karin, 2 Adeline Gannon M.D., Ph.D. [address] [place] [phone] Office Visit Transplant Karin, 2 Adeline Gannon M.D., Ph.D. [address] [place] [phone] Office Visit Family Medicine Robbin Maria 2, M.D. 300 [place] [address] Appointment Radiology Matthew Jerome 2 M.B.B.Lilian [place] [address] [place] [address] Appointment Gastroenterology and Adrianne, 2 Hepatology Yue Burciaga M.D. [address] [place] [phone] Office Visit Gastroenterology and Matthew Jerome 2 Hepatology Joshua RodriguezB.B.SLilian Moise 10[address] [place] [phone] Appointment Radiology Queenie Matthew 2 YTyrell M.D. [address] [place] [phone] Hospital Gastroenterology and [facility] Matthew Cirrhos is Alcoholic (HCC) 2 Encounter Hepatology Tyrell Rodriguez M.D. [address] [place] [phone] Anesthesia Event Gastroenterology and Rl, 2 Hepatology Ervin Burgos M.D. [address] [place] [phone] Surgery Gastroenterology and [facility] ESOPHAG OGASTRODUODENOSCOPY 2 Hepatology Tyrell Rodriguez M.D. [address] [place] [phone] Scheduled Procedures Name Priority Associated Diagnoses Date/Time ESOPHAGOGASTRODUODENOSCOPY Cirrhosis Alc oholic (HCC) 03/20/2022 8:45 AM FOAMITE MIXER Hypertension Portal (HCC) documented as of this encounter Visit Diagnoses Not on filedocumented in this encounter Additional Health Concerns Assessment Noted Time PHQ-9 Depression Total Score: 10 10/06/2021 5:00 PM CD T documented as of this encounter Care Teams Instructional Systems Design Consultant Relationship Specialty Start Date End Date Ana Red P.A.-C. PCP - General Internal Medicine 12/01/[address] [place] [address] [place] [phone] [facility]- [place] lab 08/25/21 Ervin Schroeder MD Referring Provider Family Medicine 03/24/[address] [place] [address] [place] [address] documented as of this encounter
--- OUTSIDE RECORDS SUMMARY | 2022-02-10 09:29 | XMS_ITS | Encounter Summary ---
:1990 Author Organization [facility] Address [address] [place] [address] Care Team Providers Name Role Phone Ana Red P.A.-C. Primary Care Provider [phone] Reason for Visit Reason Comments Phone Contact Encounter Details Date Type Department Care Team Description 01/15/2022 Clinical Ramirez Womack, Phone Contact Communication Center for [facility] Transplantation and Clinical Regeneration in [facility] pedro [address] [place] [address] Social History Tobacco Use Types Packs/Day Years [...] How often do you attend orthodoxy or Patient refused 2021 orthodox services? Do you belong to any clubs or No 02/10/2022 organizations such as orthodoxy groups, unions, fraADOMIC (formerly [employer]) or athletic groups, or school groups? 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 Pt oked confirming by OM. Telephone Encounter - Parris Del Rio - 01/15/2022 1:46 PM CDT Pre- Patient returning a call to schedule her appts. She can be reached at [phone]. documented in this encounter Plan of Treatment Upcoming Encounters Date Type Specialty Care Team Description Virtual Visit Transplant Mousa, Elizabeth MayBGraeme, Lilian [address] [place] [address] 2 Rain Reyes R.N. [address] [place] [phone] Telemedicine [facility] 2 Brigid noyola M.D. [address] [place] [phone] Office Visit [facility] Internal [facility], 2 Medicine Vernell Perez [address] [place] [address] Lab Laboratory Medicine Karin, 2 Adeline Gannon M.D., Ph.D. [address] [place] [phone] Lab Laboratory Medicine Karin, 2 Adeline Gannon M.D., Ph.D. [address] [place] [phone] Office Visit Transplant Karin, 2 Adeline Gannon M.D., Ph.D. [address] [place] [phone] Office Visit Family Medicine Robbin Maria 2, M.D. 300 [place] [address] Appointment Radiology Queenie Matthew Prakash YVikBGraeme, Lilian [address] [place] [address] Appointment Gastroenterology and Adrianne, 2 Hepatology Yue Burciaga M.D. [address] [place] [phone] Office Visit Gastroenterology and Matthew Jerome 2 Hepatology Tyrell Rodriguez M.D. [address] [place] [phone] Appointment Radiology Matthew Jerome 2 Tyrell Rodriguez M.D. [address] [place] [phone] Hospital Gastroenterology and Matthew Jerome Cirrhos is Alcoholic (HCC) 2 Encounter Hepatology Tyrell Rodriguez M.D. [address] [place] [address] Anesthesia Event Gastroenterology and Rl, 2 Hepatology Ervin Burgos M.D. [address] [place] [address] [phone] Surgery Gastroenterology and Matthew Jerome ESOPHAG OGASTRODUODENOSCOPY 2 Hepatology Tyrell Rodriguez M.D. [address] [place] [address] [phone] Scheduled Procedures Name Priority Associated Diagnoses Date/Time ESOPHAGOGASTRODUODENOSCOPY Cirrhosis Alc oholic (HCC) 03/20/2022 8:45 AM FIELD PROFESSIONAL Hypertension Portal (HCC) documented as of this encounter Visit Diagnoses Not on filedocumented in this encounter Additional Health Concerns Assessment Noted Time PHQ-9 Depression Total Score: 10 10/06/2021 5:00 PM CD T documented as of this encounter Care Teams Railroad Conductor Relationship Specialty Start Date End Date Ana Red P.A.-C. PCP - General Internal Medicine 12/01/[address] [place] [phone] [facility]- [place] lab 08/25/21 Ervin Schroeder MD Referring Provider Family Medicine 03/24/[address] [place] [address] documented as of this encounter
--- OUTSIDE RECORDS SUMMARY | 2022-02-10 09:29 | XMS_ITS | Encounter Summary ---
:1990 Author Organization [facility] Address [address] [place] [address] Care Team Providers Name Role Phone Ana Red P.A.-C. Primary Care Provider [phone] Reason for Visit Reason Comments Appointment January follow up Encounter Details Date Type Department Care Team Description 01/14/2022 Clinical Ramirez Huerta, [facility] Communication Center for Adeline Jagdeep (January laci Wilson, Ph.D. up) Clinical Regeneration [address] [place] [address] in [facility] [phone] [place] [address] [place], [place] (Work) [phone] Social History Tobacco Use Types Packs/Day Years [...] How often do you attend denominational or Patient refused 2021 spiritism services? 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 documented in this encounter Plan of Treatment Upcoming Encounters Date Type Specialty Care Team Description Virtual Visit Transplant Matthew Jerome M .B.B.S., M.Slick. [address] [place] [phone] 2 Rain Reyes R.N. [address] [place] [phone] Telemedicine Transplant LinaFederico 2 Brigid noyola M.D. [address] [place] [phone] Office Visit Community Internal [facility], 2 Medicine Vernell Perez 300 [place] [address] Lab Laboratory Medicine Karin, 2 Adeline Gannon M.D., Ph.D. [address] [place] [phone] Lab Laboratory Medicine Karin, 2 Adeline Gannon M.D., Ph.D. [address] [place] [phone] Office Visit Transplant Karin, 2 Adeline Gannon M.D., Ph.D. [address] [place] [phone] Office Visit Family Medicine Robbin Maria 2, M.D. 300 [place] [address] Appointment Radiology Matthew Jerome 2 Y, Elizabeth.BSumaBSumaSSuma, MJules [address] [place] [phone] Appointment Gastroenterology and Adrianne, 2 Hepatology Yue Burciaga M.D. [address] [place] [phone] Office Visit Gastroenterology and Queenie Matthew 2 Hepatology Tyrell Rodriguez M.D. [address] [place] [address] [phone] Appointment Radiology Luischantell Matthew 2 Tyrell Rodriguez, Lilian [address] [place] [phone]enterology and [facility] Cirrhos is Alcoholic (HCC) 2 Encounter Hepatology Tyrell Rodriguez M.D. [address] [place] [phone] Anesthesia Event Gastroenterology and Rl, 2 Hepatology Ervin Burgos M.D. [address] [place] [address] [phone] Surgery Gastroenterology and [place] Matthew ESOPHAG OGASTRODUODENOSCOPY 2 Hepatology Tyrell Rodriguez M.D. [address] [place] [address] [phone] Scheduled Procedures Name Priority Associated Diagnoses Date/Time ESOPHAGOGASTRODUODENOSCOPY Cirrhosis Alc oholic (HCC) 03/20/2022 8:45 AM ASSISTANT SITE MANAGER Hypertension Portal (HCC) documented as of this encounter Visit Diagnoses Not on filedocumented in this encounter Additional Health Concerns Assessment Noted Time PHQ-9 Depression Total Score: 10 10/06/2021 5:00 PM CD T documented as of this encounter Care Teams Flatwork Feeder Relationship Specialty Start Date End Date Ana Red P.A.-C. PCP - General Internal Medicine 12/01/[address] [place] [address] ADI Chua [phone] [facility]- [place] lab 08/25/21 Ervin Schroeder MD Referring Provider Family Medicine 03/24/[address] [place] [phone] documented as of this encounter
--- OUTSIDE RECORDS SUMMARY | 2022-02-10 09:29 | XMS_ITS | Encounter Summary ---
:1990 Author Organization [facility] Address [address] [place] [address] Care Team Providers Name Role Phone Ana Red P.A.-C. Primary Care Provider [phone] Reason for Visit Reason Comments Post Hospital Follow-up Encounter Details Date Type Department Care Team Description 01/15/2022 Clinical Communication Department of [facility] Internal Ciara Johnson RSumaNSuma Follow-up Medicine in [address] [place] [phone] [address] [facility] [phone] [place], [place] (Work) [phone] Social History Tobacco Use [...] How often do you attend confucianism or Patient refused 2021 amish services? 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 Patient was dismissed from the hospital on 01/14/22 at 1748. documented in this encounter Plan of Treatment Upcoming Encounters Date Type Specialty Care Team Description Virtual Visit Transplant Matthew Jerome M .B.B.S., M.D. [address] [place] [address] 2 Rain Reyes R.N. [address] [place] [phone] Telemedicine Transplant [facility] 2 Brigid noyola M.D. [address] [place] [phone] Office Visit P[facility], 2 Medicine Vernell Perez 300 [place] [phone] Lab Laboratory Medicine Olinda Frazier M.D., Ph.D. [address] [place] [phone] Lab Laboratory Medicine Olinda Frazier M.D., Ph.D. [address] [place] [phone] Office Visit Transplant Karin 2 Adeline Gannon M.D., Ph.D. [address] [place] [phone] Office Visit Family Medicine Robbin Maria 2, M.D. [address] [place] [address] [phone] Appointment Radiology Matthew Jerome 2 YTyrell M.D. [address] [place] [phone] Appointment Gastroenterology and Adrianne, 2 Hepatology Yue Burciaga M.D. [address] [place] [phone] Office Visit Gastroenterology and Matthew Jerome 2 Hepatology Vik RodriguezBLilian Bedolla [address] [place] [phone] Appointment Radiology Matthew Jerome 2 YVikBLilian Bedolla [address] [place] [phone] Hospital Gastroenterology and Matthew Jerome Cirrhos is Alcoholic (HCC) 2 Encounter Hepatology Vik RodriguezBLilian Bedolla [address] [place] [phone] Anesthesia Event Gastroenterology and Rl, 2 Hepatology Ervin Burgos M.D. [address] [place] [address] Surgery Gastroenterology and Mousa, Matthew ESOPHAG OGASTRODUODENOSCOPY 2 Hepatology Tyrell Rodriguez M.D. [address] [place] [phone] Scheduled Procedures Name Priority Associated Diagnoses Date/Time ESOPHAGOGASTRODUODENOSCOPY Cirrhosis Alc oholic (HCC) 03/20/2022 8:45 AM PHLEBOTOMY COORDINATOR Hypertension Portal (HCC) documented as of this encounter Visit Diagnoses Not on filedocumented in this encounter Additional Health Concerns Assessment Noted Time PHQ-9 Depression Total Score: 10 10/06/2021 5:00 PM CD T documented as of this encounter Care Teams Speech Therapy Teacher Relationship Specialty Start Date End Date Ana Red P.A.-C. PCP - General Internal Medicine 12/01/[address] [place] [phone] [facility] [place] lab 08/25/21 Ervin Schroeder MD Referring Provider Family Medicine 03/24/[address] [place] [address] documented as of this encounter
--- OUTSIDE RECORDS SUMMARY | 2022-02-10 09:29 | XMS_ITS | Encounter Summary ---
:1990 Author Organization [facility] Address [address] [place] [address] Care Team Providers Name Role Phone Ana Red P.A.-C. Primary Care Provider [phone] Encounter Details Date Type Department Care Team Description 01/19/[address] [facility] Vernon French, for Transplantation and [place] RSumaNSuma, Clinical Regeneration in [place] [address] [place] [phone] Social History Tobacco Use Types Packs/Day [...] How often do you attend hindu or Patient refused 2021 temple services? 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 [address] [place] [phone] Telemedicine Transplant Ashtyn 2 Brigid noyola M.D. [address] [place] [phone] Office Visit Community Internal Neda, 2 Medicine Vernell Perez 300 [place] [address] Lab Laboratory Medicine Karin, 2 Adeline Gannon M.D., Ph.D. [address] [place] [phone] Lab Laboratory Medicine Karin, 2 Adeline Gannon M.D., Ph.D. [address] [place] [phone] Office Visit Transplant Karin, 2 Adeline Gannon M.D., Ph.D. [address] [place] [phone] Office Visit Family Medicine Robbin Maria 2, M.D. 300 [place] [phone] Appointment Radiology Matthew Jerome 2 Y M.B.B.SSuma, MJules [address] [place] [address] Appointment Gastroenterology and Adrianne, 2 Hepatology Yue Burciaga M.D. [address] [place] [phone] Office Visit Gastroenterology and Matthew Jerome 2 Hepatology Elizabeth Rodriguez.B.B.SLilian Moise [address] [place] [phone] Appointment Radiology Matthew Jerome 2 YTyrell M.D. [address] [place] [phone] Hospital Gastroenterology and [facility] Matthew Cirrhos is Alcoholic (HCC) 2 Encounter Hepatology Tyrell Rodriguez M.D. [address] [place] [phone] Anesthesia Event Gastroenterology and Rl, 2 Hepatology Ervin Burgos M.D. [address] [place] [phone] Surgery Gastroenterology and [facility] ESOPHAG OGASTRODUODENOSCOPY 2 Hepatology Tyrell Rodriguez M.D. [address] [place] [phone] Scheduled Procedures Name Priority Associated Diagnoses Date/Time ESOPHAGOGASTRODUODENOSCOPY Cirrhosis Alc oholic (HCC) 03/20/2022 8:45 AM PEDIATRIC OPHTHALMOLOGIST Hypertension Portal (HCC) documented as of this encounter Visit Diagnoses Not on filedocumented in this encounter Additional Health Concerns Assessment Noted Time PHQ-9 Depression Total Score: 10 10/06/2021 5:00 PM CD T documented as of this encounter Care Teams Health Psychologist Relationship Specialty Start Date End Date Ana Red P.A.-C. PCP - General Internal Medicine 12/01/[address] [place] [address] [place] [phone] [facility]- [place] lab 08/25/21 Ervin Schroeder MD Referring Provider Family Medicine 03/24/[address] [place] [address] [place] [address] documented as of this encounter
--- OUTSIDE RECORDS SUMMARY | 2022-02-10 09:29 | XMS_ITS | Encounter Summary ---
:1990 Author Organization [facility] Address [address] [place] [address] Care Team Providers Name Role Phone Ana Red P.A.-C. Primary Care Provider [phone] Reason for Visit Reason Comments Phone Contact Appointment LABs Encounter Details Date Type Department Care Team Description 01/16/2022 Clinical Ramirez Barajas, Phone Contact; Communication Center for [facility] [place] (Jagdeep Izaguirre) Transplantation and Lilian, Ph.D. Clinical [facility] [address] [place] [address] [address] [facility] [phone] Social History Tobacco Use Types Packs/Day Years [...] How often do you attend amish or Patient refused 2021 latter-day services? Do you belong to any clubs or No 02/10/2022 organizations such as amish groups, unions, fraternal [...] or the highest technical, or vocational p confluence health degree you have received? 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 OM sent to confirm appts. Telephone Encounter [...] Andreas Lopez - 01/16/2022 5:40 PM CDT Sixto Pt needs to reschedule labs. She will be completing some in [place] on 01/20. Could we get orders for [place] for the labs that she needs to complete? PASS: Please link new orders to 01/20 labs and add urine as close as possible. Thank you in advance documented in this encounter Plan of Treatment Upcoming Encounters Date Type Specialty Care Team Description Virtual Visit Transplant Matthew Jerome M .B.B.S., M.D. 10[address] [place] [address] 2 Rain Reyes R.N. [address] [place] [phone] Telemedicine Transplant Ashtyn 2 Brigid noyola M.D. [address] [place] [phone] Office Visit [facility], 2 Medicine Vernell Perez 300 [place] [address] Lab Laboratory Medicine Karin, 2 Adeline Gannon M.D., Ph.D. [address] [place] [phone] Lab Laboratory Medicine Karin, 2 Adeline Gannon M.D., Ph.D. [address] [place] [phone] Office Visit Transplant Karin, 2 Adeline Gannon M.D., Ph.D. [address] [place] [phone] Office Visit Family Medicine Robbin Maria 2, M.D. 300 [place] [address] Appointment Radiology Matthew Jerome 2 M.B.B.SSuma, M.Jeri [address] [place] [phone] Appointment Gastroenterology and Adrianne 2 Hepatology Yue Burciaga M.D. [address] [place] [phone] Office Visit Gastroenterology and Matthew Jerome 2 Hepatology Joshua RodriguezB.B.SSumaLilian [address] [place] [phone] Appointment Radiology Queenie Matthew 2 YTyrell, Lilian [address] [place] [phone] Hospital Gastroenterology and [facility] Matthew Cirrhos is Alcoholic (HCC) 2 Encounter Hepatology Tyrell Rodriguez M.D. [address] [place] [phone] Anesthesia Event Gastroenterology and [facility], 2 Hepatology Ervin Burgos M.D. [address] [place] [address] [phone] Surgery Gastroenterology and [facility] Matthew ESOPHAG OGASTRODUODENOSCOPY 2 Hepatology Tyrell Rodriguez M.D. [address] [place] [phone] Scheduled Procedures Name Priority Associated Diagnoses Date/Time ESOPHAGOGASTRODUODENOSCOPY Cirrhosis Alc oholic (HCC) 03/20/2022 8:45 AM ALL AROUND GEAR MACHINE OPERATOR Hypertension Portal (HCC) documented as of this encounter Visit Diagnoses Not on filedocumented in this encounter Additional Health Concerns Assessment Noted Time PHQ-9 Depression Total Score: 10 10/06/2021 5:00 PM CD T documented as of this encounter Care Teams Back Tender Cylinder Relationship Specialty Start Date End Date Ana Red P.A.-C. PCP - General Internal Medicine 12/01/[address] [place] [address] ADI Chua [phone] [facility]- [place] lab 08/25/21 Ervin Schroeder MD Referring Provider Family Medicine 03/24/[address] [place] [address] ADI Mejía [address] documented as of this encounter
--- OUTSIDE RECORDS SUMMARY | 2022-02-10 09:29 | XMS_ITS | Encounter Summary ---
:1990 Author Organization [facility] Address [address] [place] [address] Care Team Providers Name Role Phone Ana Red P.A.-C. Primary Care Provider [phone] Encounter Details Date Type Department Care Team Description 01/16/2022 Clinical Communication Division of [facility] Gastroenterology in Lilian Schaefer [place], [place] [address] [facility] [address] [place] [phone] [phone] Social History Tobacco Use Types Packs/Day Years [...] More than three meolny es a week 02/10/2022 talk on the phone with family, friends, or neighbors? How often do you get together with friends Once a week 02/10/2022 or relatives? How often do you attend adventism or Patient refused 2021 denominational services? 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 [address] [place] [phone] Telemedicine Transplant Ashtyn 2 Brigid noyola M.D. [address] [place] [phone] Office Visit Community Internal Neda, 2 Medicine Vernell Perez 300 [place] [address] Lab Laboratory Medicine Karin, 2 Adeline Gannon M.D., Ph.D. [address] [place] [phone] Lab Laboratory Medicine Karin, 2 Adeline Gannon M.D., Ph.D. [address] [place] [phone] Office Visit Transplant Karin, 2 Adeline Gannon M.D., Ph.D. [address] [place] [address] [phone] Office Visit Family Medicine Robbin Maria 2, M.D. 300 [place] [address] Appointment Radiology Matthew Jerome 2, M.B.B.SSuma, Lilian [address] [place] [address] Appointment Gastroenterology and Adrianne, 2 Hepatology Yue Burciaga M.D. [address] [place] [phone] Office Visit Gastroenterology and Matthew Jerome 2 Hepatology Joshua RodriguezBSumaB.SLilian Moise 10[address] [place] [phone] Appointment Radiology Matthew Jerome 2 YTyrell M.D. [address] [place] [phone] Hospital Gastroenterology and [facility] Matthew Cirrhos is Alcoholic (HCC) 2 Encounter Hepatology Tyrell Rodriguez M.D. [address] [place] [phone] Anesthesia Event Gastroenterology and Rl, 2 Hepatology Ervin Burgos M.D. [address] [place] [address] Surgery Gastroenterology [facility] ESOPHAG OGASTRODUODENOSCOPY 2 Hepatology Tyrell Rodriguez M.D. [address] [place] [phone] Scheduled Procedures Name Priority Associated Diagnoses Date/Time ESOPHAGOGASTRODUODENOSCOPY Cirrhosis Alc oholic (HCC) 03/20/2022 8:45 AM FREIGHT WEIGHER Hypertension Portal (HCC) documented as of this encounter Visit Diagnoses Not on filedocumented in this encounter Additional Health Concerns Assessment Noted Time PHQ-9 Depression Total Score: 10 10/06/2021 5:00 PM CD T documented as of this encounter Care Teams Radiology Nurse Relationship Specialty Start Date End Date Ana Red P.A.-C. PCP - General Internal Medicine 12/01/[address] [place] [address] [facility] [place] [address] [facility]- [place] lab 08/25/21 Ervin Schroeder MD Referring Provider Family Medicine 03/24/[address] [place] [address] [place] [address] documented as of this encounter
--- OUTSIDE RECORDS SUMMARY | 2022-02-10 09:29 | XMS_ITS | Encounter Summary ---
:1990 Author Organization [facility] Address [address] [place] [address] Care Team Providers Name Role Phone Ana Red P.A.-C. Primary Care Provider [phone] Encounter Details Date Type Department Care Team Description 01/17/2022 Clinical Communication Division of Mike, Gastroenterology in [place], [place] Ph.D. [address] [facility] [address] [place] [address] [place], [place] [phone] Social History Tobacco Use Types Packs/Day Years [...] you attend jainism or Patient refused 2021 denominational services? 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 - 01/17/2022 6:56 PM CDT Paged by deburr operator regarding nose bleed for the last [...] Transplant Matthew Jerome M .B.B.S., Lilian [address] [place] [address] 2 Rain Reyes R.N. [address] [place] [phone] Telemedicine Transplant LinaFederico 2 Brigid noyola M.D. [address] [place] [phone] Office Visit Community Internal Neda, 2 Medicine Vernell Perez [address] [place] [address] Lab Laboratory Medicine Karin, 2 Adeline Gannon M.D., Ph.D. [address] [place] [phone] Lab Laboratory Medicine Karin, 2 Adeline Gannon M.D., Ph.D. [address] [place] [phone] Office Visit Transplant Karin, 2 Adeline Gannon M.D., Ph.D. [address] [place] [phone] Office Visit Family Medicine Robbin Maria 2, M.D. 300 [place] [address] Appointment Radiology LuisNew abdular 2 Tyrell Rodriguez M.D. [address] [place] [phone] Appointment Gastroenterology and Adrianne, 2 Hepatology Yue Burciaga M.D. [address] [place] [phone] Office Visit Gastroenterology and [place] Jeromear 2 Hepatology Tyrell Rodriguez M.D. [address] [place] [phone] Appointment Radiology Matthew Jerome 2 Tyrell Rodriguez M.D. [address] [place] [phone] Hospital Gastroenterology and LuisMatthew abdul Cirrhos is Alcoholic (HCC) 2 Encounter Hepatology Tyrell Rodriguez M.D. [address] [place] [address] Anesthesia Event Gastroenterology and Rl, 2 Hepatology Ervin Burgos M.D. [address] [place] [address] [phone] Surgery Gastroenterology and LuisNew abdular ESOPHAG OGASTRODUODENOSCOPY 2 Hepatology Tyrell Rodriguez M.D. [address] [place] [phone] Scheduled Procedures Name Priority Associated Diagnoses Date/Time ESOPHAGOGASTRODUODENOSCOPY Cirrhosis Alc oholic (HCC) 03/20/2022 8:45 AM LAND MOBILE RADIO TECHNICIAN Hypertension Portal (HCC) documented as of this encounter Visit Diagnoses Not on filedocumented in this encounter Additional Health Concerns Assessment Noted Time PHQ-9 Depression Total Score: 10 10/06/2021 5:00 PM CD T documented as of this encounter Care Teams Editor Publications Relationship Specialty Start Date End Date Ana Red P.A.-C. PCP - General Internal Medicine 12/01/[address] [place] [phone] [facility]- [place] lab 08/25/21 Ervin Schroeder MD Referring Provider Family Medicine 03/24/[address] [place] [address] documented as of this encounter
--- OUTSIDE RECORDS SUMMARY | 2022-02-10 09:30 | XMS_ITS | Encounter Summary ---
:1990 Author Organization [facility] Address [address] [place] [address] Care Team Providers Name Role Phone Ana Red P.A.-C. Primary Care Provider [phone] Encounter Details Date Type Department Care Team Description 01/07/2022 Patient Self-Triage [facility] C[facility] Symptom Laboratory Mechanic Helper, Provider Social History Tobacco Use Types Packs/Day [...] you attend advent or Patient refused 2021 anabaptism services? 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 [address] [place] [phone] Telemedicine Transplant Ashtyn 2 Brigid noyola M.D. [address] [place] [address] [phone] Office Visit Community Internal Neda, 2 Solitario Perez P.A.-C. 300 [place] [address] Lab Laboratory Medicine Karin, Olinda Gannon M.D., Ph.D. [address] [place] [phone] Lab Laboratory Medicine Karin, Olinda Gannon M.D., Ph.D. [address] [place] [address] [phone] Office Visit Transplant Karin, Olinda Gannon M.D., Ph.D. [address] [place] [address] [phone] Office Visit Family Medicine Robbin Maria 2, M.D. [address] [place] [address] [phone] Appointment Radiology Matthew Jerome 2 Y M.B.B.S., MJules [address] [place] [address] Appointment Gastroenterology and Adrianne, 2 Hepatology Yue Burciaga M.D. [address] [place] [phone] Office Visit Gastroenterology and Matthew Jerome 2 Hepatology Jennifer M.B.B.SSuma, Lilian [address] [place] [address] [phone] Appointment Radiology Matthew Jerome 2 Y M.B.B.SSuma, Lilian [address] [place] [phone] [facility] Gastroenterology and Mousa, Matthew Cirrhos is Alcoholic (HCC) 2 Encounter Hepatology Tyrell Rodriguez M.D. [address] [place] [address] Anesthesia Event Gastroenterology and Rl, 2 Hepatology Ervin Burgos M.D. [address] [place] [phone] Surgery Gastroenterology and Mousa, Matthew ESOPHAG OGASTRODUODENOSCOPY 2 Hepatology Tyrell Rodriguez M.D. [address] [place] [phone] Scheduled Procedures Name Priority Associated Diagnoses Date/Time ESOPHAGOGASTRODUODENOSCOPY Cirrhosis Alc oholic (HCC) 03/20/2022 8:45 AM VICE PRESIDENT INDUSTRIAL RELATIONS Hypertension Portal (HCC) documented as of this encounter Visit Diagnoses Not on filedocumented in this encounter Additional Health Concerns Assessment Noted Time PHQ-9 Depression Total Score: 10 10/06/2021 5:00 PM CD T documented as of this encounter Care Teams Ship Boat Or Barge Mate Relationship Specialty Start Date End Date Ana Red P.A.-C. PCP - General Internal Medicine 12/01/[address] [place] [phone] [facility]- [place] lab 08/25/21 Ervin Schroeder MD Referring Provider Family Medicine 03/24/[address] [place] [address] [place] [address] documented as of this encounter
--- OUTSIDE RECORDS SUMMARY | 2022-02-10 09:30 | XMS_ITS | Encounter Summary ---
:1990 Author Organization [facility] Address [address] [place] [address] Care Team Providers Name Role Phone Ana Red P.A.-C. Primary Care Provider Reason for Referral Transplant (Routine) - Authorized Specialty Diagnoses / Procedures Referred By Contact Refer red To Contact Transplant Surgery / Adeline Frazier Royer Transplant Lilian Gannon, Ph.D. [address] [place] [phone] Referral ID Status Reason Start Date Expiration Date Visits V isits Requested Authorized [id number] Authorized 01/13/2022 01/12/2025 1 1 Scheduling Instructions Lab work to be done on her next visit to [facility] Reason for Visit Transplant (Routine) - Closed Specialty Diagnoses / Procedures Referred By Contact Refer red To Contact Transplant Surgery / Adeline Frazier Royer Transplant Lilian Gannon, Ph.D. [address] [place] [phone] Referral ID Status Reason Start Date Expiration Date Visits Requ ested Visits Authorized [id number] Closed 10/10/2021 10/10/2022 1 1 Encounter Details Date Type Department Care Team Description 01/13/2022 Telemedicine Adeline Antoine M.D., Ph.D. [address] [place] [address] Moderate Or Severe [facility] Cathleen Elena Loretta Use Disorder Transplantation and (Depende nce) Alcohol Clinical Regeneration in [facility] ission ([facility]) [place], [place] (Primary Dx) [address] [place] [address] Social History Tobacco Use Types Packs/Day [...] you attend jainism or Patient refused 2021 zoroastrian services? Do you belong to [...] Date Recorded Female 04/12/2021 7:39 PM CIRCUS RIDER documented as of this encounter Progress Notes Elena Connolly - 01/13/2022 11:30 AM CDT Service Date: 01/13/22 SUBJECTIVE DEMOGRAPHICS Patient: Catia Carias Date of : 1990 Age: 31 y.o. Gender: female Address: [address] [place] [phone] Appointment conducted via real-time audio/video technology by GARY Coleman in [facility] to the patient in [place] [id number]. . CHIEF COMPLAINT / REASON FOR VISIT Transplant Addiction Psychiatry Individual follow up session Pre-transplant, Liver Supervising Garbage Pick Up Man: Dr. Marva Frazier M.D. Ph.D Total Counseling Time: 15 Minutes HISTORY OF PRESENT ILLNESS I had the opportunity to review the patient's medical record as it relates to transplant addiction psychiatry. The patient is a 31 y.o. female from [place], [place]. 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. She reports being hospitalized with encephalopathy confusion. She verbalized a great deal of commitment to enter treatment and to do whatever I have to to get a transplant. She reports having begun the intake process for [facility]'s virtual Addiction Treatment Program. She is aware [...] management per Radhames Neumann, Ph.D., L.P. in [place] [facility]plant Psychiatry (Pain Rehabilitation), 10/06/2021: - virtual [...] the patient via the portal and via Plan Me Up. Upon it'sreturn we can check her insurance coverage for [facility] virtual Outpatient Addiction Treatment Program. If her [...] Visit Transplant Matthew Jerome M .B.B.S., M.Slick. [address] [place] [address] 2 Rain Reyes R.N. [address] [place] [address] Telemedicine Transplant Ashtyn 2 Brigid noyola M.D. [address] [place] [phone] Office Visit Community Internal Carlos, 2 Medicine Vernell Perez [address] [place] [address] Lab Laboratory Medicine Karin, Olinda Gannon M.D., Ph.D. [address] [place] [phone] Lab Laboratory Medicine Karin, 2 Adeline Gannon M.D., Ph.D. [address] [place] [phone] Office Visit Transplant Karin, Olinda Gannon M.D., Ph.D. [address] [place] [phone] Office Visit Family Medicine Robbin Maria 2, M.D. [address] [place] [address] Appointment Radiology Matthew Jerome 2 M.B.B.SSuma, M.Jeri [address] [place] [phone] Appointment Gastroenterology and Adrianne 2 Hepatology Yue Burciaga M.D. [address] [place] [phone] Office Visit Gastroenterology and Matthew Jerome 2 Hepatology Joshua RodriguezB.B.SSuma, Lilian [address] [place] [phone] Appointment Radiology Luischantell Matthew 2 Tyrell Rodriguez, Lilian [address] [place] [phone] Hospital Gastroenterology and Matthew Jerome Cirrhos is Alcoholic (HCC) 2 Encounter Hepatology Tyrell Rodriguez M.D. [address] [place] [phone] Anesthesia Event Gastroenterology and Rl, 2 Hepatology Ervin Burgos M.D. [address] [place] [phone] Surgery Gastroenterology and Matthew Jerome ESOPHAG OGASTRODUODENOSCOPY 2 Hepatology Tyrell Rodriguez, Lilian [address] [place] [phone] Scheduled Orders Name Type Priority Associated Diagnoses Order S chedule Phosphatidylethanol Lab Routine Moderate Or Severe Ex pected: Confirmation Use Disorder 02/12/2022 (Dependence) Alcohol (Approx imate), Remission (HCC) Expires: Drug Abuse Survey with Lab Routine Moderate Or Severe Expected: Confirmation, Urine Use Disorder 02/13/20 22 (Dependence) Alcohol (Approx imate), Remission (HCC) Expires: Ethyl Glucuronide Screen with Lab Routine Moderate Or Severe Expected: Reflex, Urine Use Disorder 02/12/2022 (Dependence) Alcohol (Approx imate), Remission (HCC) Expires: Scheduled Procedures Name Priority Associated Diagnoses Date/Time ESOPHAGOGASTRODUODENOSCOPY Cirrhosis Alc oholic (HCC) 03/20/2022 8:45 AM CIRCUS RIDER Hypertension Portal (HCC) Scheduled Referrals Name Type [...] documented as of this encounter Care Teams Biofuels Product Development Manager Relationship Specialty Start Date End Date Ana Red P.A.-C. PCP - General Internal Medicine 12/01/[address] [place] [phone] [facility] [place] lab 08/25/21 Ervin Schroeder MD Referring Provider Family Medicine 03/24/[address] [place] [phone] documented as of this encounter
--- OUTSIDE RECORDS SUMMARY | 2022-02-10 09:30 | XMS_ITS | Encounter Summary ---
:1990 Author Organization [facility] Address [address] [place] [address] Care Team Providers Name Role Phone Ana Red P.A.-C. Primary Care Provider [phone] Encounter Details Date Type Department Care Team Description 01/08/2022 Clinical [facility] Farida Perez Medicine in [address] [address] [place], [place] [phone] (Work) [phone] Social History Tobacco Use Types Packs/Day Years [...] How often do you attend taoism or Patient refused 2021 quaker services? Do you belong to any clubs or No 02/10/2022 organizations such as taoism groups, unions, fraternal [...] or the highest technical, or vocational p [facility] degree you have received? 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 [address] [place] [phone] Telemedicine Transplant LinaDemarcus 2 Brigid noyola M.D. [address] [place] [phone] Office Visit Community Internal Neda, 2 Solitario Perez P.A.-C. [address] [place] [address] Lab Laboratory Medicine Karin, 2 Adeline Gannon M.D., Ph.D. [address] [place] [phone] Lab Laboratory Medicine Olinda Frazier M.D., Ph.D. [address] [place] [phone] Office Visit Transplant Karin, 2 Adeline Gannon M.D., Ph.D. [address] [place] [phone] Office Visit Family Medicine Robbin Maria 2 Lilian Johnson [address] [place] [phone] Appointment Radiology Matthew Jerome 2 YKishore.B.Kath, Lilian [address] [place] [phone] Appointment Gastroenterology and Adrianne, 2 Hepatology Yue Burciaga M.D. [address] [place] [phone] Office Visit Gastroenterology and Matthew Jerome 2 Hepatology Joshua RodriguezB.B.Lilian [place] [address] [place] [phone] Appointment Radiology Matthew Jerome 2 YJoshuaB.B.SLilian Moise [address] [place] [phone] Hospital Gastroenterology and Matthew Jerome Cirrhos is Alcoholic (HCC) 2 Encounter Hepatology Joshua RodriguezB.B.SLilian Moise [address] [place] [phone] Anesthesia Event Gastroenterology and Rl, 2 Hepatology Ervin Burgos M.D. [address] [place] [phone] Surgery Gastroenterology and Mousa, Matthew ESOPHAG OGASTRODUODENOSCOPY 2 Hepatology Tyrell Rodriguez M.D. [address] [place] [phone] Scheduled Procedures Name Priority Associated Diagnoses Date/Time ESOPHAGOGASTRODUODENOSCOPY Cirrhosis Alc oholic (HCC) 03/20/2022 8:45 AM INTERNAL AUDIT DIRECTOR Hypertension Portal (HCC) documented as of this encounter Visit Diagnoses Not on filedocumented in this encounter Additional Health Concerns Assessment Noted Time PHQ-9 Depression Total Score: 10 10/06/2021 5:00 PM CD T documented as of this encounter Care Teams Quality Improvement Consultant Relationship Specialty Start Date End Date Ana Red P.A.-C. PCP - General Internal Medicine 12/01/[address] [place] [address] [place] [phone] [facility] [place] lab 08/25/21 Ervin Schroeder MD Referring Provider Family Medicine 03/24/[address] [place] [address] [place] [address] documented as of this encounter
--- OUTSIDE RECORDS SUMMARY | 2022-02-10 09:30 | XMS_ITS | Encounter Summary ---
:1990 Author Organization [facility] Address [address] [place] [address] Care Team Providers Name Role Phone Ana Red P.A.-C. Primary Care Provider [phone] Encounter Details Date Type Department Care Team Description 12/25/2021 Clinical Communication [facility] Farida Perez Medicine in [address] [address] [place], [place] [phone] (Work) [phone] Social History Tobacco Use Types Packs/Day Years [...] How often do you attend gnosticist or Patient refused 2021 buddhism services? Do you belong to any clubs or No 02/10/2022 organizations such as gnosticist groups, unions, fraternal [...] or the highest technical, or vocational p [facility] degree you have received? 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 - 12/29/2021 8:07 AM CDT Detailed message left for patient stating that disability parking paperwork can not be filled out until she sees Ana and that she has an appointment on 01/07/2022 that we will fill that out with her. Telephone Encounter - ChaceYadi jean - 12/26/2021 2:11 PM CDT Patient called [...] Virtual Visit Transplant Matthew Jerome M .B.B.S., M.Jeri [address] [place] [address] [place] [address] 2 Rain Reyes R.N. [address] [place] [phone] Telemedicine Transplant [facility] 2 Brigid noyola M.D. [address] [place] [phone] Office Visit Community Internal [facility], 2 Medicine Vernell Perez [address] [place] [address] Lab Laboratory Medicine Karin, 2 Adeline Gannon M.D., Ph.D. [address] [place] [phone] Lab Laboratory Medicine Karin, 2 Adeline Gannon M.D., Ph.D. [address] [place] [phone] Office Visit Transplant Karin, 2 Adeline Gannon M.D., Ph.D. [address] [place] [phone] Office Visit Family Medicine Robbin Maria 2, M.D. [address] [place] [address] Appointment Radiology Matthew Jerome 2 YTyrell, MJules [address] [place] [address] Appointment Gastroenterology and Doll, 2 Hepatology Yue Burciaga M.D. [address] [place] [address] Office Visit Gastroenterology and Matthew Jerome 2 Hepatology Tyrell Rodriguez M.D. [address] [place] [phone] Appointment Radiology Matthew Jerome 2 Tyrell Rodriguez M.D. [address] [place] [phone] Hospital Gastroenterology and Queenie Matthew Cirrhos is Alcoholic (HCC) 2 Encounter Hepatology Tyrell Rodriguez M.D. [address] [place] [phone] Anesthesia Event Gastroenterology and Rl, 2 Hepatology Ervin Burgos M.D. [address] [place] [phone] Surgery Gastroenterology and Nechantell Matthew ESOPHAG OGASTRODUODENOSCOPY 2 Hepatology Tyrell Rodriguez M.D. 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 PCP - General Internal Medicine 12/01/[address] [place] [address] [facility] [place] [address] [facility] 08/25/21 Ervin Schroeder MD Referring Provider Family Medicine 03/24/[address] [place] [address] [place] [address] documented as of this encounter
--- OUTSIDE RECORDS SUMMARY | 2022-02-10 09:30 | XMS_ITS | Encounter Summary ---
:1990 Author Organization [facility] Address [address] [place] [address] Care Team Providers Name Role Phone Ana Red P.A.-C. Primary Care Provider Reason for Referral Physical Therapy (Routine) - Authorized Specialty Diagnoses / Procedures Referred By Contact Refer red To Contact Diagnoses Pain Low Back Unspecified Colleen Crowell M.D., M.P.H. [address] [place] [address] [phone] Referral ID Status Reason Start Expiration Visits Visits Date Date Requested Authorized [id number] Authorized Patient 01/14/2022 01/14/2023 1 1 Preference Medication Prior Authorization - Closed Specialty Diagnoses / Procedures Referred By Contact Refer red To Contact Colleen Crowell M.D ., M.P.H. [address] [place] [address] [phone] Referral ID Status Reason Start Date Expiration Date Visits Requ ested Visits Authorized [id number] Closed 1 1 Outpatient (Routine) - Authorized Specialty Diagnoses / Procedures Referred By Contact Refer red To Contact Diagnoses Pain Low Back Unspecified Colleen Crowell M.D., M.P.H. [address] [place] [phone] Referral ID Status Reason Start Date Expiration Date Visits V isits Requested Authorized [id number] Authorized 01/14/2022 01/14/2023 1 1 Reason for Visit Reason Comments Abdominal Pain Auth/Cert Specialty Diagnoses / Procedures Referred By Contact Refer red To Contact Diagnoses Hepatic Encephalopathy Without Coma (HCC) Procedures ETU Referral ID Status Reason Start Date Expiration Date Visits Requ ested Visits Authorized [id number] 1 1 Encounter Details Date Type Department Care Team Description 01/09/2022 - [facility] Ludwin Garcia Jr., M.D. [address] [place] [address] [phone] Hepatic Encephalopathy Without Coma (HCC ) (Primary Dx); [facility] [address] [place] [address] [phone] Deficiency Vitamin A; [facility], Sree Bach M.D. [address] [place] [phone] Cirrhosis Alcoholic (HCC); [facility], Pain Low B ack Unspecified; Fifth Floor Decline Functional Status [R 53.81 (ICD-10-CM)] [address] [place] [address] [phone] Social History Tobacco Use Types Packs/Day Years [...] you attend mormonism or Patient refused 2021 baptist services? 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 Primary Team: [facility] Gastroenterology B Primary Care Providers: Ana Red P.A.-C. (General) [address] [place] [phone] Primary Care Provider Primary Care Provider Other [...] management per Radhames Neumann, Ph.D., L.P. in [place] [facility] (Pain Rehabilitation), 10/06/2021: - virtual [...] Internal Medicine 01/20/2022 11:30 AM LAB 01 FB Laboratory Medicine 01/27/2022 8:00 AM TXP PRE [...] AM CDT You were discharged from the [facility] Gastroenterology B Service. Please identify this service [...] bed and don with modified independence using cellular biologist. Discussed use of cellular biologist for donning/doffing pants and socks. Offered to [...] 07/03 Months Reversed: 07/03 30 seconds: 06/05 Dpdj-[id number]-Aspr: 0 Go/No-Go: 07/03 Address Recall: 3/3 Total Score: 25/30 (Administered 01/14/2022) RECOMMENDATIONS: Discharge Therapy Needs - OT: Ongoing skilled occupational therapy Level of Care Needed - OT: Assistance with toilet/shower transfers, Assistance with dressing, Assistance with showering/bathing, Assistance with meal preparation, Assistance with director of student financial aid, Assistance with transportation, Assistance with housekeeping, Assistance with shopping Discharge information provided on 01/14/2022 Contact information: [facility], [address], AttachmentsThe following attachments cannot be sent through Care Everywhere. Acetaminophen (By mouth) (Wallisian)Ciprofloxacin (By mouth) (Wallisian)Lidocaine Patch (On the skin) (Wallisian)Prochlorperazine (By mouth) (Wallisian) Cholecalciferol (By mouth) (Wallisian)documented in this encounter Medications at Time of [...] Jurado M.D. - 01/12/2022 3:17 PM CDT [facility] Gastroenterology B PROGRESS NOTE SUBJECTIVE Ms. Carias [...] / PLAN Ms. Carias is hospitalized on [facility] Gastroenterology B for evaluation and management of [...] will discuss SBP ppx with her outpatient director of orthopedics # acute blood loss anemia, improved - [...] home, planning for discharge on 01/13 Sree Bach M.D. - 01/12/2022 2:40 PM [...] Patient super sedated this afternoon, will reattempt 9/11 Taking? Last Dose Informant Start Date End [...] evaluation. She was previously admitted to the [facility] GI service during the month of October [...] any GI bleeding. Patient presented to the [facility] ED with worsening abdominal distension over the [...] started to seem confused, wanting to go [employer] grocery store, suddenly awakening every hour saying [...] 31 y.o. female who is hospitalized on [facility] Gastroenterology B for evaluation and management of [...] Maker: AriadnaLobito Disposition: Home Kit Bellamy, MS4 [facility] Cornelia Jurado M.D. - 01/09/2022 12:08 [...] / PLAN Ms. Carias is hospitalized on [facility] Gastroenterology B for evaluation and management of [...] AMS, concern for safe swallow. May need GRAVITY PROSPECTOR eval - monitor renal function and UOP [...] Treatment General Acute Onset Date: 01/09/22 Payor: [facility] [place] CARE / Plan: [facility] [place] RESTRICTED PLAN / Product Type: [...] Pretransplant Recipient Evaluation Exam Deficiency Vitamin A Mcc Use Of Opiate Analgesic Nicotine Dependence Cigarettes [...] ADL Assistance: Required assistance ADL Assistance Comments: Boyfriennaveen helps her to and from the bathroom when needed, independent with dressing, but has to do so sitting or lying, toileting and bathing independent but has assist gettting to toilet or into tub shower. This started about 5 weeks ago when she was in the shower and felt her back spasm. IADL/Homemaking Assistance: Required assistance IADL/Homemaking Assistance Comments: Loydiend assists with meal preparation and housekeeping. Able to prepare simple meals if needed. Able to do light cleaning tasks such as dishes but unable to do heavier tasks such as sweeping, mopping, etc. due to back pain. [facility] assists with setting up weekly pillbox. 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 Discussed use of cellular biologist for donning/doffing pants and socks. Offered to [...] 07/03 Months Reversed: 07/03 30 seconds: 06/05 Aajk-Niiv-Mshv: 0 Go/No-Go: 07/03 Address Recall: 07/03 Total Score: 25/30 [facility] Inpatient Short Form: Putting on and [...] Standardized Score: 44.27 Interpretation: Clinicians answer the [facility] Inpatient Short Form based on observed [...] showering/bathing, Assistance with meal preparation, Assistance with director of student financial aid, Assistance with transportation, Assistance with housekeeping, Assistance [...] evaluate and treat Onset Date: 01/09/22 Payor: [facility] [place] / Plan: [facility] [place] REST[place]ED PLAN / Product Type: [...] Pretransplant Recipient Evaluation Exam Deficiency Vitamin A Striker Off Use Of Opiate Analgesic Nicotine Dependence Cigarettes [...] pain started Prior Mobility/Functional Transfers Level of Pratt: Needs assistance Previous Transfer/Mobility Assistance Comments: Relied [...] needs met and questions answered. Outcome Measures [facility] Inpatient Short Form: -[facility] Basic Mobility (V.2) How much [...] 3-5 steps with a railing?: A Little -[facility] Basic Mobility (V.2) Raw Score: 22 -[facility] Basic Mobility (V.2) Standardized Score: 47.4 Interpretation: Clinicians answer the [facility] Inpatient Short Form based on observed [...] Time (min): 50 min Andreas Menendez P.T., JeriP.T. Evon Sinha L.G.S.W., M.S.W. - 01/12/2022 11:01 AM CDTAssociated Order(s): IP CONSULT TO CARE MANAGEMENT SUBJECTIVE Social Work met with patient in their hospital room to offer support, update psychosocial information and assist with discharge planning. Social work introduced self and reviewed role of inpatient social work. Patient expressed understanding and was agreeable to social work visit. Reviewed Psychosocial Assessment completed on 09/30/2021 by Joel Tan BODY ART TECHNICIAN. Patient indicates that this information remains accurate [...] Patient shares that she has been attending and is in the process of obtaining [...] work to reach out to their transplant manager social, Jeol Tan, for care coordination, as needed. Patient shares that she has a large and strong support systemthat is able to provide informal support as needed. Patient shares that she has a nurse through [facility] who comes out one time a week to set up her medication in a weekly pill box. Patient provided verbal consent for social work to reconnect [facility] services with [facility]. Patient shares no concerns [...] expectations and reviewing role of an inpatient manager social, engaging in rapport building, empathetic listening, active [...] Patient plans to return home with prior [facility] and family supports. Family to provide transportation at dismissal. Social work will continue to follow and provide psychosocial support and assistance with dismissal planning, as needed. Patient to discharge with home health care. Home Medical Care - Admitted Since 01/09/2022 Service Provider Selected Services Address Phone Fax Patient Preferred [facility] [address] [phone] -- Contact: intake/admissions NURSING: - Complete documentation in the Discharge Navigator including Nursing Report Info and Facility/NextLevel of Care Info - Call report and arrange for the patient???s first visit. - Send required packet of dismissal information with patient, including After Visit Summary and advance directive. PRIMARY SERVICE: - Please provide a non-[place] home health order for resumption of previous [...] was given AVS and will be leaving [facility] with significant other. She had no further [...] improved Outcome: Adequate for Discharge Kindra Knight RGabby - 01/14/2022 5:47 AM CDT Problem: PAIN [...] Source Urine, Urine, Straight Catheter Color, U [place](!) Clarity Clear 1029 Dipstick, Urine(!): Hemoglobin, QL, [...] Transplant Matthew Jerome M .B.B.S., M.D. [address] [place] [phone] 2 Rain Reeys R.N. [address] [place] [phone] Telemedicine Transplant LinaFederico 2 Brigid noyola M.D. [address] [place] [phone] Office Visit Community Internal Neda, 2 Medicine Vernell Perez [address] [place] [phone] Lab Laboratory Medicine Karin, 2 Adeline Gannon M.D., Ph.D. [address] [place] [phone] Lab Laboratory Medicine Karin, 2 Adelnie Gannon M.D., Ph.D. [address] [place] [phone] Office Visit Transplant Karin, 2 Adeline Gannon M.D., Ph.D. [address] [place] [phone] Office Visit Family Medicine Robbin Maria 2, M.D. [address] [place] [address] [phone] Appointment Radiology Matthew Jerome 2 YJoshuaBSumaB.SSuma, Lilian [address] [place] [address] [phone] Appointment Gastroenterology demian Silver 2 Hepatology Yue Burciaga M.D. [address] [place] [phone] Office Visit Gastroenterology and Matthew Jerome 2 Hepatology Jennifer MSumaB.B.SLilian Moise [address] [place] [phone] Appointment Radiology Matthew Jerome 2 Jennifer M.B.B.SLilian Moise [address] [place] [phone] Hospital Gastroenterology and Matthew Jerome Cirrhos is Alcoholic (HCC) 2 Encounter Hepatology Tyrell Rodriguez M.D. [address] [place] [phone] Anesthesia Event Gastroenterology and Rl, 2 Hepatology Ervin Burgos M.D. [address] [place] [phone] Surgery Gastroenterology and Mousa, Matthew ESOPHAG OGASTRODUODENOSCOPY 2 Hepatology Tyrell Rodriguez M.D. 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 Hypertension Portal (HCC) Scheduled Referrals Name Type Priority Associated Diagnoses Order S chedule [facility] Outpatient Referral Routine Pain Low Back Ordere [...] Signature Ventricular Rate 81 BPM MUSE ECG/Min GA Interval 146 ms MUSE QRSD Interval 90 ms MUSE QT Interval 408 ms MUSE QTC Interval 473 ms MUSE P Underwood 6 degrees MUSE R [place]wood 55 degrees MUSE T Wave [place] 26 degrees MUSE Specimen Anatomical Collection Method [...] CBC without Differential (01/14/2022 8:11 AM CDT) [facility] Method Time Signature Hemoglobin 7.5 (L) [...] Organization Address City/State/ZIP Code Phon e Number [facility] - [address] [place], [place] [address] [facility] [place] [address] [facility] [address] [facility] (ABNORMAL) Comprehensive Metabolic Panel (01/13/2022 8:42 PM [...] Blood (Blood, 01/13/2022 8:42 PM 01/14/20 22 9:33 Venous) CDT PM CDT Anuel Saucedo M.D. LAB BLOOD ADD-ON Performing Organization Address City/State/ZIP Code Phon e Number [facility] - [address] [place] [address] [facility] [place] [place] [address] Laboratories-[facility] 200 [facility] (ABNORMAL) CBC without Differential (01/13/2022 8:42 PM CDT) [facility] Method Time Signature Hemoglobin 7.1 (L) [...] Organization Address City/State/ZIP Code Phon e Number [facility] - [address] [place], [place] [address] [facility] [place] [address] [facility] [address] [place] Paracentesis with Imaging Guidance (01/13/2022 [...] Differential, Body Fluid (01/13/2022 2:42 PM CDT) [facility] Method Time Signature Fluid Type Peritoneal- 01/13/2022 [...] Its performance characteri stics were determined by [facility] in a manner co nsistent with CLIA [...] 01/14 7:46 AM CDT DHPM Reviewed by: Tech 01/14/2022 7:46 AM CDT DHPM Specimen Anatomical Collection Method Collection Time Receive d Time (Source) Location / / Volume Laterality Fluid 01/13/2022 2:42 PM 2 3:33 (Peritoneal CDT PM CDT Fluid) Cornelia Jurado M.D. LAB BODY FLUIDS AND STOOLS O RDERABLES Performing Organization Address City/State/ZIP Code Phon e Number [facility] - [address] [place], [place] [address] [place] [address] [facility] [address] [facility] (ABNORMAL) CBC without Differential (01/13/2022 7:09 AM CDT) [facility] Method Time Signature Hemoglobin 7.4 [...] Laterality Blood (Blood, 01/13/2022 7:09 AM 01/14/20 8:08 Venous) CDT AM CDT Cornelia Jurado M.D. LAB BLOOD ADD-ON Performing Organization Address City/State/ZIP Code Phon e Number [facility] - [address] [place], [place] [address] [facility] [place] [address] [facility] [address] [facility] (ABNORMAL) Comprehensive Metabolic Panel (01/13/2022 7:09 AM [...] M.D. LAB BLOOD ADD-ON Performing Organization Address City/[facility] Phon e Number [facility] [address] (ABNORMAL) Hemoglobin (01/12/2022 4:17 AM CDT) P athologist Signature Hemoglobin 7.7 (L) 11.6 - 15.0 01/12/2022 DTL g/dL 4:50 AM CDT Specimen Anatomical Collection Method Collection Time Receive d Time (Source) Location / / Volume Laterality Blood (Blood, 01/12/2022 4:17 AM 01/13/20 4:42 Venous) CDT AM CDT Cornelia Jurado M.D. LAB BLOOD ADD-ON Performing Organization Address City/[facility] Phon e Number [facility] [address] (ABNORMAL) Basic Metabolic Panel (01/12/2022 4:17 [...] Blood (Blood, 01/12/2022 4:17 AM 01/13/20 22 4:50 Venous) CDT AM CDT Cornelia Jurado M.D. LAB BLOOD ADD-ON Performing Organization Address City/State/ZIP Code Phon e Number [facility] - [address] [place], [place] [address] [facility] [place] [address] [facility] [address] (ABNORMAL) Hemoglobin (01/11/2022 4:35 PM CDT) P athologist Signature Hemoglobin 7.9 (L) 11.6 - 15.0 01/11/2022 DTL g/dL 5:00 PM CDT Specimen Anatomical Collection Method Collection Time Receive d Time (Source) Location / / Volume Laterality Blood (Blood, 01/11/2022 4:35 PM 01/12/20 22 4:56 Venous) CDT PM CDT Cornelia Jurado M.D. LAB BLOOD ADD-ON Performing Organization Address City/State/ZIP Code Phon e Number [facility] - [address] [place], [place] [address] [facility] [place] [address] [facility] [address] [facility] (ABNORMAL) Comprehensive Metabolic Panel (01/11/2022 8:36 AM [...] M.D. LAB BLOOD ADD-ON Performing Organization Address City/[facility] Phon e Number [facility] - [address] (ABNORMAL) Hemoglobin (01/11/2022 6:44 AM CDT) P athologist Signature Hemoglobin 7.4 (L) 11.6 - 15.0 01/11/2022 DTL g/dL 7:29 AM CDT Specimen Anatomical Collection Method Collection Time Receive d Time (Source) Location / / Volume Laterality Blood (Blood, 01/11/2022 6:44 AM 01/12/20 22 7:20 Venous) CDT AM CDT Colleen Crowell M.D., M.P.H. LAB BLOOD ADD-ON Performing Organization Address City/State/ZIP Code Phon e Number [facility] - [address] [place], [place] [address] [facility] [address] (ABNORMAL) Hemoglobin (01/10/2022 10:11 PM CDT) P athologist Signature Hemoglobin 7.9 (L) 11.6 - 15.0 01/10/2022 DTL g/dL 10:30 PM CDT Specimen Anatomical Collection Method Collection Time Receive d Time (Source) Location / / Volume Laterality Blood (Blood, 01/10/2022 10:11 01/10/2022 Venous) PM CDT 10:24 PM CDT Colleen Crowell M.D., M.P.H. LAB BLOOD ADD-ON Performing Organization Address City/State/ZIP Code Phon e Number [facility] - [address] [place], [place] [address] [facility] [place] [address] [facility] [address] [facility] (ABNORMAL) Comprehensive Metabolic Panel (01/10/2022 10:11 PM CDT) P athologist Signature Potassium, S 4.3 [...] Organization Address City/State/ZIP Code Phon e Number [facility] - [address] [place] [address] [facility] [place] [place] [address] [facility] [address] [facility] (ABNORMAL) CBC without Differential (01/10/2022 10:11 PM CDT) [facility] Method Time Signature Hemoglobin 7.7 (L) [...] M.P.H. LAB BLOOD ADD-ON Performing Organization Address City/State/[facility] Code Phon e Number [facility] - [address] [place], [place] [address] [place] [address] (ABNORMAL) Hemoglobin (01/10/2022 8:27 PM CDT) athologist Signature Hemoglobin 7.7 (L) 11.6 - 15.0 01/10/2022 DTL g/dL 8:47 PM CDT Specimen Anatomical Collection Method Collection Time Receive d Time (Source) Location / / Volume Laterality Blood (Blood, 01/10/2022 8:27 PM 01/11/20 8:41 Venous) CDT PM CDT Colleen Crowell M.D., M.P.H. LAB BLOOD ADD-ON Performing Organization Address City/State/[facility] Phon e Number [facility] - [address] Transfuse Red Blood Cells : (01/10/2022 [...] M.D. LAB URINE ORDERABLES Performing Organization Address City/[facility]/ZIP Code Phon e Number [facility] - [address] [place] [address] (ABNORMAL) Hemoglobin (01/10/2022 12:22 PM CDT) P athologist Signature Hemoglobin 6.4 (L) 11.6 - 15.0 01/10/2022 DHPM g/dL 1:29 PM CDT Specimen Anatomical Collection Method Collection Time Receive d Time (Source) Location / / Volume Laterality Blood (Blood, 01/10/2022 12:22 01/10/2022 Venous) PM CDT 12:46 PM CDT Cornelia Jurado M.D. LAB BLOOD ADD-ON Performing Organization Address City/[facility]/ZIP Code Phon e Number [facility] - [address] [place], [place] [address] [facility] [place] [place] [address] [place] Liver with Liver Doppler (01/10/2022 [...] atio <1.0. All other fluids refer to www.[employer].com for further inter pretive information. This test has been modified from the doug last's instructions. Its performance characteri stics were determined by [facility] in a manner consistent wi CLIA requirements. [...] AND STOOLS O JOSE Performing Organization Address City/[facility] Phon e Number [facility] - [address] [place], [place] [address] [facility] [place] [place] [address] [facility] [address] [facility] Albumin, Body Fluid (01/10/2022 9:51 AM CDT) P athologist Signature Albumin BF 0.3 See Comment 01/10/2022 DT g/dL 1:37 PM CDT Comment: ----ADDITIONAL INFORMATION---- [...] t est has been modified from the tire spotter's instruc tions. Its performance characteristics were determi foreign by [facility] in a manner consistent with CLIA require [...] Organization Address City/State/ZIP Code Phon e Number [facility] - [address] [place], [place] [address] [facility] [place] [place] [address] Laboratories-[place] [address] [address] [facility] Lactate Dehydrogenase (LD), Body Fluid (01/10/2022 9:51 AM CDT) Patholo gist Method Time Signature Lactate 41 See [...] clinical findings. All other fluids refer to [email or web address] [email or web address] for further interpretive information. This test has been modified from the man cecilacturer's instructions. Its performance characteristics were det ermined by [facility] in a manner consistent with CLIA requirements [...] Organization Address City/State/ZIP Code Phon e Number [facility] - [address] [place], [place] [address] [facility] [place] [address] [facility] [address] Protein, Total, Body [...] ical findings. All other fluids refer to www.[employer] for further inter pretive information. This test has been modified from the tire spotter's instructions. Its perform ance characteristics were determined by [facility] in a manner consistent with CLIA require [...] Organization Address City/State/ZIP Code Phon e Number [facility] - [address] [place], [place] [address] [facility] [place] [address] [facility] [address] Glucose, Body Fluid (01/10/2022 [...] of infection. All other fluids refer to www.[employer] for further inter pretive information. This test has been modified from the man ufacturer's instructions. Its performance characteri stics were determined by [facility] in a manner co nsistent with CLIA [...] M.D. LAB BODY FLUIDS AND STOOLS O RDGRACE Performing Organization Address [facility] Phon e Number [facility] - [address] [place], [place] [address] [place], [place] [id number] [place] [address] Bacterial Culture, Aerobic + Susc (01/10/2022 9:51 AM CDT) [facility] Method Time Signature Bacterial No growth 01/15/2022 DT Culture, after 5 8:05 AM CDT Aerobic + Susc days of incubation. Specimen Anatomical Collection Method Collection Time Receive d Time (Source) Location / / Volume Laterality Fluid 01/10/2022 9:51 AM 2 (Peritoneal CDT 11:24 AM CDT Fluid) Comment: Specimen Source Site: Fluid Narrative [facility] - [facility] - 01/15/2022 8:05 AM CDT Bacterial Culture: Received Bactec aerob ic and Bactec anaerobic bottles Cornelia Jurado M.D. LAB MICROBIOLOGY - GENERAL O RDKAIBLES Performing Organization Address [facility] Phon e Number [facility] - [address] [place], [place] [address] [place] [address] [facility]-[address] Cell Count and Differential, Body Fluid (01/10/2022 9:51 AM CDT) Provident Link Method Time Signature Fluid Type Peritoneal- 01/10/2022 [...] Its performance characteri stics were determined by [facility] in a manner co nsistent with CLIA [...] Are: Mesothelial cells 01/11/2022 5:44 AM CDT PM Comment SeeComment 01/11/2022 5:44 AM CDT DHPM Comment: No blasts or malignant cells se en. Degenerative neutrophils present. Reviewed by: Ruth 01/11/2022 5:44 AM CDT [facility] Specimen Anatomical Collection Method Collection Time Receive d Time (Source) Location / / Volume Laterality Fluid 01/10/2022 9:51 AM 2 (Peritoneal CDT 11:28 AM CDT Fluid) Cornelia Jurado M.D. LAB BODY FLUIDS AND STOOLS O RDERABLES Performing Organization Address City/State/ZIP Code Phon e Number [facility] - [address] [place], [place] [address] [place] [address] [facility] [address] (ABNORMAL) Hemoglobin (01/10/2022 4:04 AM CDT) athologist Signature Hemoglobin 7.9 (L) 11.6 - 15.0 01/10/2022 STMA g/dL 4:31 AM CDT Specimen Anatomical Collection Method Collection Time Receive d Time (Source) Location / / Volume Laterality Blood (Blood, 01/10/2022 4:04 AM 01/11/20 4:29 Venous) CDT AM CDT Cornelia Jurado M.D. LAB BLOOD ADD-ON Performing Organization Address City/State/ZIP Code Phon e Number [facility] - [address] [place], [place] [address] [facility] [place] [address] [facility] [address] (ABNORMAL) Comprehensive Metabolic Panel (01/10/2022 4:04 [...] Organization Address City/State/ZIP Code Phon e Number [facility] - [address] [place], [place] [address] [facility] [place] [place] [address] [facility] [address] [facility] (ABNORMAL) CBC with Differential, Blood (01/10/2022 4:04 AM CDT) [facility] gist Method Time Signature Hemoglobin 7.8 (L) [...] Organization Address City/State/ZIP Code Phon e Number [facility] - [address] [place] [address] [facility] [place] [address] Laboratories-[address] (ABNORMAL) Cystatin C with Estimated GFR [...] BLOOD ADD-ON Performing Organization Address [facility] Phon e Number [facility] - [address] [place], [place] [address] [place] [address] [place], [place] [id number] [place] [address] (ABNORMAL) Hepatic Function Panel (01/10/2022 4:04 AM [...] M.D. LAB BLOOD ADD-ON Performing Organization Address City/[facility] Phon e Number [facility] - [address] [place], [place] [address] [facility] [place], [place] [id number] [place] [address] (ABNORMAL) Haptoglobin (01/10/2022 4:04 AM CDT) P athologist Signature Haptoglobin, S <14 (L) 30 - 200 01/13/2022 SDSC mg/dL 1:56 PM CDT Specimen Anatomical Collection Method Collection Time Receive d Time (Source) Location / / Volume Laterality Blood (Blood, 01/10/2022 4:04 AM 01/13/20 22 6:42 Venous) CDT AM CDT Cornelia Jurado M.D. LAB BLOOD ADD-ON Performing Organization Address City/State/ZIP Code Phon e Number [facility] [address] [place], [place] [address] [facility] [place] [address] [facility] [address] [place] (ABNORMAL) LD (Lactate Dehydrogenase) (01/10/2022 4:04 AM CDT) [facility] Monica 236 (H) 122 - 222 01/10/2022 DT LD U/L 5:08 AM CDT Specimen Anatomical Collection Method Collection Time Receive d Time (Source) Location / / Volume Laterality Blood (Blood, 01/10/2022 4:04 AM 01/11/20 22 4:46 Venous) CDT AM CDT Cornelia Jurado M.D. LAB BLOOD NON ADD-ON Performing Organization Address City/State/ZIP Code Phon e Number [facility] - [address] [place], [place] [address] [place] [address] [facility] [address] (ABNORMAL) SPSMA Result (01/10/2022 4:04 AM CDT) [facility] Method Time [facility] Neutrophilic Segs 76 (H) 50 - 75 % 01/10/2022 DHPM and Bands 8:26 AM CDT Lymphocytes 17 (L) 18 - 42 % 01/10/2022 DHPM 8:26 AM CDT Monocytes 5 2 - 11 % 01/10/2022 DHPM 8:26 AM CDT Metamyelocytes 1 (H) <1 % 01/10/2022 DHPM 8:26 AM CDT Myelocytes 1 (H) <0.5 % 01/10/2022 DHPM 8:26 AM CDT Nucleated RBC 2 /100 WBC 01/10/2022 DHPM 8:26 AM CDT Manual Absolute 6.61 (H) 1.56 - 01/10/2022 DHPM Neutrophil Count 6.45 8:26 AM CDT x10(9)/L Comment: ----ADDITIONAL INFORMATION---- The manual absolute neutrophil count is derived from a manual differential count and therefore is not exactly comparable to the automated absolute armida trophil count. Interpretation SeeComment 01/10/2022 8:26 AM CDT D HPM Comment: No morphologic features of hemo lysis are seen. Reviewed by: Ruth 01/10/2022 8:26 AM CDT [facility] Specimen Anatomical Collection Method Collection Time Receive d Time (Source) Location / / Volume Laterality Blood (Blood, 01/10/2022 4:04 AM 01/11/20 4:37 Venous) CDT AM CDT Cornelia Jurado M.D. LAB BLOOD ADD-ON Performing Organization Address [facility] Phon e Number [facility] - [address] [place] [address] Magnesium (01/10/2022 4:04 AM CDT) P athologist Signature Magnesium, S 1.9 1.7 - 2.3 01/10/2022 DTL mg/dL 5:18 AM CDT Specimen Anatomical Collection Method Collection Time Receive d Time (Source) Location / / Volume Laterality Blood (Blood, 01/10/2022 4:04 AM 01/11/20 4:54 Venous) CDT AM CDT Cornelia Jurado M.D. LAB BLOOD ADD-ON Performing Organization Address City/[facility] Phon e Number [facility] - [address] Transfuse Red Blood Cells : (01/10/2022 1:51 AM CDT) Cornelia Jurado M.D. BLOOD TRANSFUSION ORDERABLES Transfuse Red Blood Cells : , 1 Units (01/10/2022 1:51 AM CDT) Cornelia Jurado M.D. BLOOD TRANSFUSION ORDERABLES Lactate (01/09/2022 9:13 PM CDT) P athologist Signature Lactate, P 1.5 0.5 - 2.2 01/09/2022 DTL mmol/L 10:28 PM CDT Specimen Anatomical Collection Method Collection Time Receive d Time (Source) Location / / Volume Laterality Blood (Blood, 01/09/2022 9:13 PM 01/10/20 22 Venous) CDT 10:06 PM CDT Cornelia Jurado M.D. LAB BLOOD NON ADD-ON Performing Organization Address [facility] Phon e Number [facility] [address] (ABNORMAL) Hemoglobin (01/09/2022 9:13 PM CDT) P athologist Signature Hemoglobin 6.6 (L) 11.6 - 15.0 01/09/2022 DTL g/dL 11:14 PM CDT Specimen Anatomical Collection Method Collection Time Receive d Time (Source) Location / / Volume Laterality Blood (Blood, 01/09/2022 9:13 PM 01/10/20 9:40 Venous) CDT PM CDT Cornelia Jurado M.D. LAB BLOOD ADD-ON Performing Organization Address City/[facility] Phon e Number [address] Transfuse Red Blood Cells : (01/09/2022 [...] Organization Address City/State/ZIP Code Phon e Number [facility] - [address] [place], [place] [address] [facility] [place] [address] [facility] 200 [facility] ECG 12 Lead (01/09/2022 2:34 PM CDT) P athologist Signature Ventricular Rate 108 BPM MUSE ECG/Min GA Interval 158 ms MUSE QRSD Interval 86 ms MUSE QT Interval 360 ms MUSE QTC Interval 482 ms MUSE P [place] 85 degrees MUSE R [place] 117 degrees MUSE T Wave [place] 84 degrees MUSE Specimen Anatomical Collection Method Collection Time Receive d Time (Source) Location / / Volume Laterality 01/09/2022 2:34 PM 2 2:49 CDT PM CDT Impressions MUSE - [...] POC, V Asymptomatic (01/09/2022 1:45 PM CDT) [facility] Method Time Signature SARS Undetected Undetected 01/09/2022 DTLR Coronavirus-2 2:05 PM CDT , RNA, Rapid POC, V Comment: Negative for SARS-CoV-2. The Narvar COVID-19 test is a molecular jonathan t for SARS-CoV-2, the virus that causes COVID- 19. A Negative result means that the Narvar COV ID-19 test did not detect SARS-CoV-2 virus in your sample. Narvar COVID-19 test uses the [employer] nitoring System. This test has received Emergency Use Authorization (EUA) by the U.S. Food and Drug Administration (FDA) and is used per man ufacturer instructions. Performance characteristic s were verified by [facility] in a manner consistent with CLIA requirements. Fact sheets for this Emerg ency Use Authorization (EUA) can be found at the following links: Providers: https://[employer]com/documentation/prov iders.pdf Patients: https://[employer]com/documentation/deshawn ents.pdf SARS Coronavirus 2, Source Nasopharynx DEFAULT 01/09/2022 2:05 PM CDT DTLR Specimen Anatomical Collection Method Collection Time Receive d Time (Source) Location / / Volume Laterality Varies 01/09/2022 1:45 PM 2 1:45 (Nasopharynx) CDT PM CDT Reese Reyes M.D. LAB MICROBIOLOGY - GENERAL O RDERABLES Performing Organization Address City/State/ZIP Code Phon e Number PERFORMING LABS, REF [place] [address] INTERFACE Ref Interface [address] [place] Performing Labs, [place] [address] Interface 200 [facility] Bacteria / Raudel Culture, Blood # 2 (01/09/2022 10:11 AM CDT) [facility] Method Time Signature Bacteria/Adriana No growth 01/14/2022 DT da Culture, after 5 11:02 AM CDT Blood days of incubation. Specimen (Source) Anatomical Collection Method Collection Time Re ceived Time Location / / Volume Laterality Blood (Blood, 01/09/2022 10:11 01/09/2022 Peripheral Draw) AM CDT 10:32 AM CD T Comment: Specimen Source Site: Blood Narrative [facility] - 01/14/2022 11:02 AM CDT Received Bactec Peds bottle Wilfredo Vigil P.A.-C. LAB MICROBIOLOGY - GENERAL O RDERABLES Performing Organization Address City/[facility] Phon e Number [facility] - [address] [place], [place] [address] [place] [address] [facility] 200 [facility] (ABNORMAL) Dipstick, Urine (01/09/2022 10:04 AM CDT) [facility] Method Time Signature Hemoglobin, Negative Negative 01/09/2022 [...] URINE ORDERABLES Performing Organization Address [facility] Phon e Number [facility] [address] [place], [place] [address] [place] [address] pH, Random, Urine (01/09/2022 10:04 AM CDT) athologist Signature pH, Random, U 5.9 4.5 - 8.0 01/09/2022 DTL 10:48 AM CDT Specimen Anatomical Collection Method Collection Time Receive d Time (Source) Location / / Volume Laterality Urine 01/09/2022 10:04 01/09/2022 AM CDT 10:21 AM CDT Migue Garcia Jr., M.D. LAB URINE ORDERABLES Performing Organization Address City/[facility] Phon e Number [facility] - [address] [place], [place] [address] [facility] [address] Osmolality, Urine (01/09/2022 10:04 AM CDT) athologist Signature Osmolality, U 428 150 - 1150 01/09/2022 DTL mOsm/kg 10:48 AM CDT Specimen Anatomical Collection Method Collection Time Receive d Time (Source) Location / / Volume Laterality Urine 01/09/2022 10:04 01/09/2022 AM CDT 10:21 AM CDT Migue Garcia Jr., M.D. LAB URINE ORDERABLES Performing Organization Address City/[facility] Code Phon e Number [facility] - [address] [place], [place] [address] [place] [id number] [place] [address] (ABNORMAL) Microscopic Manual (01/09/2022 10:04 AM CDT) athologist Signature Microscopy Abnormal 01/09/2022 DTL 12:06 [...] URINE ORDERABLES Performing Organization Address [facility] Phon e Number [facility] - [address] [place] [address] Bacterial Culture, Aerobic + Susc, Urine (01/09/2022 10:04 AM CDT) [facility] Method Time Signature Urine Culture No growth 01/10/2022 DT after 1 day 8:28 AM CDT of incubation. Specimen Anatomical Collection Method Collection Time Receive d Time (Source) Location / / Volume Laterality Urine (Urine, 01/09/2022 10:04 01/09/2022 Straight AM CDT 11:23 AM CDT Catheter) Comment: Specimen Source Site: Urine Migue Garcia Jr., M.D. LAB MICROBIOLOGY - GENERA L ORDERABLES Performing Organization Address [facility] Phon e Number [place] [id number] Laboratories-[address] (ABNORMAL) Urinalysis with Microscopic: Urine, Straight Catheter (01/09/2022 10:04 AM CDT) [facility] Method Time Signature Source Urine, 01/09/2022 DTL Urine, 10:21 AM CDT Straight Catheter Color, U [place] (A) 01/09/2022 DTL 10:21 AM CDT Clarity, [...] URINE ORDERABLES Performing Organization Address [facility] Phon e Number [facility] - [address] [place], [place] [address] [facility] DTL [address] Lactate, POCT (01/09/2022 10:04 AM CDT) Analysis Performed At Patho logist Time Signature Lactate, POCT Collected DEFAULT 01/09/2022 SMLX 10:04 AM CDT Specimen Anatomical Collection Method Collection Time Receive d Time (Source) Location / / Volume Laterality Blood (Blood, 01/09/2022 10:04 01/09/2022 Venous) AM CDT 10:04 AM CDT Wilfredo Vigil P.A.-C. LAB POCT ORDERABLES - DEVICE Performing Organization Address [facility] Phon e Number [facility] - [address] [place], [place] [address] [facility] [place] [address] Bacteria / Raudel Culture, Blood #1 [...] - GENERAL O RDERABLES Performing Organization Address City/State/[facility] Phon e Number [facility] - [address] [place] [address] [facility] [place] [place] [address] Glucose, POCT (01/09/2022 10:04 AM CDT) Analysis Performed At Patho logist Time Signature Glucose, POCT, Collected DEFAULT 01/09/2022 SMLX B 10:04 AM CDT Specimen Anatomical Collection Method Collection Time Receive d Time (Source) Location / / Volume Laterality Blood (Blood, 01/09/2022 10:04 01/09/2022 Capillary) AM CDT 10:04 AM CDT Wilfredo Vigil P.A.-C. LAB POCT ORDERABLES-MANUAL Performing Organization Address [facility] Phon e Number [facility] - [address] [place], [place] [address] [facility] [place] [address] (ABNORMAL) Hepatic Function Panel (01/09/2022 10:03 AM CDT) Patholo gist Method Time Signature Bilirubin, Total, S 20.8 [...] P.A.-C. LAB BLOOD ADD-ON Performing Organization Address City/[facility] Phon e Number [facility] - [address] [place], [place] [address] [facility] [place] [place] [address] [facility] 200 [facility] (ABNORMAL) Prothrombin Time (PT) (01/09/2022 10:03 AM CDT) [facility] Method Time Signature Prothrombin 28.3 (H) 9.4 - 12.5 01/09/2022 STMA Time, P sec 10:45 AM CDT INR 2.5 0.9 - 1.1 01/09/2022 [facility] AM [facility] Comment: ----ADDITIONAL INFORMATION---- Standard intensity warfarin therapeutic range: 2.0 to 3.0 ?? High intensity warfarin therapeutic rang e: 2.5 to 3.5 Specimen Anatomical Collection Method Collection Time Receive d Time (Source) Location / / Volume Laterality Blood (Blood, 01/09/2022 10:03 01/09/2022 Venous) AM CDT 10:17 AM CDT Wilfredo Vigil P.A.-C. LAB BLOOD ADD-ON Performing Organization Address City/[facility] Phon e Number [facility] - [address] [place] [address] [place] [address] Laboratories[address] (ABNORMAL) CBC with Differential, Blood (01/09/2022 [...] Organization Address City/State/ZIP Code Phon e Number [facility] - [address] [place], [place] [address] [place] [address] [facility] [address] hCG (Human Chorionic Gonadotropin), Quantitative, (01/09/2022 [...] Organization Address City/State/ZIP Code Phon e Number [facility] - [address] [place], [place] [address] [facility] [place] [address] [facility] [address] (ABNORMAL) Basic Metabolic Panel (01/09/2022 10:02 [...] Organization Address City/State/ZIP Code Phon e Number [facility] - [address] [place], [place] [address] [facility] [place] [address] [facility] 200 [facility] [place] [address] [facility] 200 [facility] Glucose, POCT (01/09/2022 10:01 AM CDT) P [...] Address City/State/ZIP Code Phon e Number POC [facility] [address] [place] [address] [place] [address] [facility] 200 [facility] (ABNORMAL) Dipstick, POCT, Urine (01/09/2022 10:00 AM CDT) Patholo gist Method Time Signature Glucose, Negative Negative 01/09/2022 PCED POCT, U mg/dL 10:02 AM CDT Ketone, POCT, Negative Negative 01/09/2022 PCED U mg/dL 10:02 AM CDT Specific 1.015 1.005 - 01/09/2022 PCED [place], 1.030 10:02 AM CDT POCT, U Blood, [...] POCT ORDERABLES - DEVICE Performing Organization Address [facility]/ZIP Code Phon e Number POC [facility] [address] [place] [address] [place] [address] [facility] [address] [facility] (ABNORMAL) Ammonia (01/09/2022 9:59 AM CDT) P athologist Signature Ammonia, P 119 (H) <=30 01/09/2022 DTL mcmol/L 11:05 AM CDT Specimen Anatomical Collection Method Collection Time Receive d Time (Source) Location / / Volume Laterality Blood (Blood, 01/09/2022 9:59 AM 01/10/20 22 Venous) CDT 10:24 AM CDT Wilfredo Vigil P.A.-C. LAB BLOOD NON ADD-ON Performing Organization Address City/[facility]/ZIP [facility] Phon e Number [facility] - [address] [place], [place] [address] [place] [address] [facility] [address] [facility] Lipase (01/09/2022 9:56 AM CDT) athologist Signature Lipase, S 25 13 - 60 U/L 01/09/2022 3:00 DTL PM CDT Specimen Anatomical Collection Method Collection Time Receive d Time (Source) Location / / Volume Laterality Blood (Blood, 01/09/2022 9:56 AM 01/10/20 22 2:41 Venous) CDT PM CDT Cornelia Jurado M.D. LAB BLOOD ADD-ON Performing Organization Address City/[facility]/ZIP [facility] Phon e Number [facility] - [address] [place], [place] [address] [facility] [place] [id number] [address] Type and Screen (with reflex Antibody ID) (01/09/2022 9:56 AM CDT) [facility] Method Time Signature ABORh B Pos Not 01/09/2022 STRM applicable 12:41 PM CDT Antibody Negative Negative 01/09/2022 STRM Screen 12:55 PM CDT Type & Screen 01/12/2022 01/09/2022 STRM Expiration 23:59 12:41 PM CDT Testing [facility] DEFAULT 01/09/2022 STRM Location 12:21 PM CDT Specimen Anatomical Collection Method Collection Time Receive d Time (Source) Location / / Volume Laterality Blood (Blood, 01/09/2022 9:56 AM 01/10/20 22 Venous) CDT 12:21 PM CDT Leslie Gupta M.D. LAB BLOOD BANK TEST YO ELISE Performing Organization Address City/State/ZIP Code Phon e Number [facility] - [address] [place], [place] [address] [facility] [place] [address] [facility] 200 [facility] (ABNORMAL) Lactate, POCT (01/09/2022 9:53 AM CDT) [...] POCT ORDERABLES - DEVICE Performing Organization Address [facility] Phon e Number POC [facility] [address] [place] [address] PCLX [facility] [place] [address] [facility] [address] documented in this encounter [...] 100 mL/hr 60 g, intravenous, Once, On Wed01/12/22 at 0700, For 1 dose, If no infusion rate specified: Administer the 25% solution at 100 mL/hr albumin human 25 % injection 90 g New Bag 01/11/2022 4:01 AM CDT 90 g 90 g, intravenous, Once, On Wed01/11/22 at 0200, For 1 dose, If no [...] before breakfast and dinner, First dose on 01/10/22 at 0700, Swallow whole. Do NOT crush, [...] human 25 % injection 60 g (COMPLETED) 825 (Ne w Bag - Provider: Yanira Martinez RGabby) 60 g, intravenous, Once, On Wed01/12/22 at 0700, For 1 dose, If no infusion rate specified: Administer the 25% solution at 100 mL/hr cefTRIAXone in dextrose (iso-osm) IVPB 1 g (ROCEPHIN) (CANCELED) 1506 (New Bag - Provider: Yanira Martinez R.N.) 1600 (New Bag - Provider: Leandra morris [...] mg 0822 (Given - Provider: Yanira diaz RGabby) 0813 (Given - Provider: Leandra Estevez R.N.) 0939 (Given - Provider: Leandra Estevez R.N.) 1 mg, oral, Daily, First dose on Wed01/10/22 at 0900 furosemide tablet 40 mg (LASIX) 0939 (Given - Provider: Andrew ChowdaryNSuma) 40 mg, oral, Daily, First dose on Wed01/14/22 at 0900 lactulose solution 10 g (CHRONULAC) 0821 (Given - Prov ider: Yanira Martinez RGabby)1506 (Given - Provider: Yanira Martinez R.N.)2000 (Given - Provider: Kary Dickson RSumaNSuma) 0813 (Given - Provider: Leandra Estevez R.N.)1338 (Not Given - Provider: Leandra Estevez R.N. - Reason: Patient/family refused)2015 (Given - Provider: Kindra Knight RSumaNSuma) 0941 (Given - Provider: Andrew ChowdaryNSuma)1511 (Given - Provider: Leandra Estevez R.N.) 10 g, oral, 3 times daily, First dose on Wed01/09/22 at 2100 lidocaine 5 % 1 patch (LIDODERM) 1142 (Not Given - Pro vider: Saydee L Juan, R.N. - Reason: Patient/family refused)1247 (Medication Applied - Provider: Yanira Martinez R.N.) 0047 (Medication Removed - Provider: Preston Dickson R.N.)0813 (Medication Applied - Provider: Leandra Estevez R.N.)2021 (Medication Removed - Provider: Kindra Knight R.N.) 0939 (Medication Applied - Provider: Leandra Estevez [...] split tablet. rifAXIMin tablet 550 mg (XIFAXAN) 0822 (Given - Provid er: Yanira Martinez R.N.)1999 (Given - Provider: Kary Dickson R.N.) 0813 (Given - Provider: Leandra Estevez R.N.)2015 (Given - Provider: Kindra Knight R.N.) 0939 (Given - Provider: Leandra Estevez R.N.) 550 mg, oral, 2 times daily, First dose on Wed01/09/22 at 2100, Indications: Prophylaxis, medical spironolactone tablet 50 mg (ALDACTONE) 0939 (Given - Provider: Leandra Estevez R.N.) 50 mg, oral, Daily, First dose on Wed01/14/22 at 0900 thiamine tablet 100 mg (VITAMIN B1) 0822 (Given - Prov ider: Yanira Martinez R.N.) 0813 (Given - Provider: Leandra Estevez R.N.) 0939 (Tristan iven - Provider: Leandra Estevez R.N.) 100 mg, oral, Daily, First dose on Wed01/10/22 at 0900 traZODone tablet 50 mg (DESYREL) 2000 (Given - Provide r: Kary Dickson RSumaNSuma) 2015 (Given - Provider: Andrew VilaNSuma) 50 mg, oral, Daily at bedtime, First dose on Wed01/10/22 at 0030 vitamin A capsule 3,000 mcg 0825 (Given - Provider: Yanira lucas RSumaNSuma) 0943 (Given - Provider: Leandra Estevez R.N.) 3,000 mcg, oral, 3 times weekly (Once pe r day on Wed), First dose on Wed01/12/22 at 0900, For 20 days, Vitamin A (retinol): Units x 0.3 = mcg; 10,000 Units = 3,000 mcg Vitamin A (Supplemental Be ta-carotene): Units x 0.3 = mcg Vitamin A (Dietary Beta-carotene): Units x 0.05 = mcg PRN Medication Order 01/12/2022 01/13/2022 01/14/2022 acetaminophen tablet 500 mg (TYLENOL) 13 38 (Given - Provider: Leandra Estevez R.N.)2015 (Given - Provider: Kindra Knight RGabby) 0155 (Given - Provider: Kindra Knight R.N.)0939 [...] 0311 ( Given - Provider: Almita Britt R.N.)0821 (Given - Provider: Yanira Martinez R.N.) 1 mg, oral, Every 4 hours PRN, [...] as of this encounter Care Teams Quality Control Head Relationship Specialty Start Date End Date Ana Red P.A.-C. PCP - General Internal Medicine 12/01/[address] [place] [address] ADI PANIAGUA [phone] [facility] 08/25/21 Ervin Schroeder MD Referring Provider Family Medicine 03/24/[address] [place] [address] ADI P[place]agua [phone] documented as of this encounter
--- OUTSIDE RECORDS SUMMARY | 2022-02-10 09:30 | XMS_ITS | Encounter Summary ---
:1990 Author Organization [facility] Address [address] [place] [address] Care Team Providers Name Role Phone Ana Red P.A.-C. Primary Care Provider [phone] Encounter Details Date Type Department Care Team Description 12/27/2021 Patient Self-Triage [facility] Symptom Manager Solution, Provider Social History Tobacco Use Types Packs/Day [...] How often do you attend druze or Patient refused 2021 sabianist services? Do you belong to any clubs or No 02/10/2022 organizations such as druze groups, unions, fraternal [...] at Date Recorded Female 04/12/2021 7:39 PM HORTICULTURAL THERAPIST documented as of this encounter Plan of Treatment Upcoming Encounters Date Type Specialty Care Team Description Virtual Visit Transplant Matthew Jerome M .B.B.S., Lilian [address] [place] [address] 2 Rain Reyes R.N. [address] [place] [phone] Telemedicine Transplant Ashtyn 2 Brigid noyola M.D. [address] [place] [address] [phone] Office Visit Community Internal Neda, 2 Solitario Perez P.A.-C. 300 [place] [address] Lab Laboratory Medicine Karin, Olinda Gannon M.D., Ph.D. [address] [place] [phone] Lab Laboratory Medicine Karin, Olinda Gannon M.D., Ph.D. [address] [place] [address] [phone] Office Visit Transplant Karin, Olinda Gannon M.D., Ph.D. [address] [place] [address] [phone] Office Visit Family Medicine Robbin Maria 2, M.D. [address] [place] [address] [phone] Appointment Radiology Matthew Jerome 2 Y M.B.B.S., MJules [address] [place] [phone] Appointment Gastroenterology and Adrianne, 2 Hepatology Yue Burciaga M.D. [address] [place] [phone] Office Visit Gastroenterology and Matthew Jerome 2 Hepatology Jennifer M.B.B.SSuma, Lilian [address] [place] [address] [phone] Appointment Radiology Matthew Jerome 2 Y M.B.B.SSuma, Lilian [address] [place] [phone] [facility] Gastroenterology and Mousa, Matthew Cirrhos is Alcoholic (HCC) 2 Encounter Hepatology Tyrell Rodriguez M.D. [address] [place] [phone] Anesthesia Event Gastroenterology and Rl, 2 Hepatology Ervin Burgos M.D. [address] [place] [address] [phone] Surgery Gastroenterology and Mousa, Matthew ESOPHAG OGASTRODUODENOSCOPY 2 Hepatology Tyrell Rodriguez M.D. [address] [place] [phone] Scheduled Procedures Name Priority Associated Diagnoses Date/Time ESOPHAGOGASTRODUODENOSCOPY Cirrhosis Alc oholic (HCC) 03/20/2022 8:45 AM HORTICULTURAL THERAPIST Hypertension Portal (HCC) documented as of this encounter Visit Diagnoses Not on filedocumented in this encounter Additional Health Concerns Assessment Noted Time PHQ-9 Depression Total Score: 10 10/06/2021 5:00 PM CD T documented as of this encounter Care Teams Powerhouse Electrician Apprentice Relationship Specialty Start Date End Date Ana Red P.A.-C. PCP - General Internal Medicine 12/01/[address] [place] [phone] [facility] 08/25/21 Ervin Schroeder MD Referring Provider Family Medicine 03/24/[address] [place] [address] [place] [address] documented as of this encounter
--- OUTSIDE RECORDS SUMMARY | 2022-02-10 09:30 | XMS_ITS | Encounter Summary ---
:1990 Author Organization [facility] Address [address] [place] [address] Care Team Providers Name Role Phone Ana Red P.A.-C. Primary Care Provider [phone] Encounter Details Date Type Department Care Team Description 01/13/2022 Clinical Communication Division of [facility] in Lilian Schaefer [place], [place] [address] [facility] [address] [place] [phone] Social History Tobacco Use Types Packs/Day Years [...] How often do you attend mu-ism or Patient refused 2021 temple services? 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 [address] [place] [phone] Telemedicine Transplant Ashtyn 2 Brigid noyola M.D. [address] [place] [phone] Office Visit Community Internal Neda, 2 Medicine Vernell Perez [address] [place] [phone] Lab Laboratory Medicine Karin, 2 Adeline Gannon M.D., Ph.D. [address] [place] [phone] Lab Laboratory Medicine Karin, 2 Adeline Gannon M.D., Ph.D. [address] [place] [phone] Office Visit Transplant Karin, 2 Adeline Gannon M.D., Ph.D. [address] [place] [address] [phone] Office Visit Family Medicine Robbin Maria 2, M.D. [address] [place] [phone] Appointment Radiology Matthew Jerome 2, M.B.B.SSuma, Lilian [address] [place] [address] Appointment Gastroenterology and Adrianne, 2 Hepatology Yue Burciaga M.D. [address] [place] [phone] Office Visit Gastroenterology and Matthew Jerome 2 Hepatology Joshua RodriguezBSumaB.SLilian Moise [address] [place] [phone] Appointment Radiology Matthew Jerome 2 YTyrell M.D. [address] [place] [phone] Hospital Gastroenterology and [facility] Cirrhos is Alcoholic (HCC) 2 Encounter Hepatology Tyrell Rodriguez M.D. [address] [place] [phone] Anesthesia Event Gastroenterology and Rl, 2 Hepatology Ervin Burgos M.D. [address] [place] [phone] Surgery Gastroenterology and [facility] ESOPHAG OGASTRODUODENOSCOPY 2 Hepatology Tyrell Rodriguez M.D. [address] [place] [phone] Scheduled Procedures Name Priority Associated Diagnoses Date/Time ESOPHAGOGASTRODUODENOSCOPY Cirrhosis Alc oholic (HCC) 03/20/2022 8:45 AM TYPING CHECKER Hypertension Portal (HCC) documented as of this encounter Results (ABNORMAL) CBC with Differential, Blood (01/20/2022 12:07 PM CDT) [facility] Method Time Signature Hemoglobin 7.4 (L) 11.6 [...] Phon e Number [facility]- [address] [place], [place] [phone] [place] [address] LAB [address] [place] [address] (ABNORMAL) Comprehensive Metabolic Panel (01/20/2022 12:07 [...] Phon e Number [facility]- [address] [place] [address] [place] [address] System in [place] [address] documented in this encounter Visit Diagnoses Diagnosis Cirrhosis Alcoholic (HCC) 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 PCP - General Internal Medicine 12/01/[address] [place], [place] [address] [phone] [facility]- [place] lab 08/25/21 Ervin Schroeder MD Referring Provider Family Medicine 03/24/[address] [place] [phone] documented as of this encounter
--- OUTSIDE RECORDS SUMMARY | 2022-02-10 09:30 | XMS_ITS | Encounter Summary ---
:1990 Author Organization [facility] Address [address] [place] [address] Care Team Providers Name Role Phone Ana Red P.A.-C. Primary Care Provider [phone] Reason for Referral Outpatient (Routine) - Authorized Specialty Diagnoses / Procedures Referred By Contact Refer red To Contact Diagnoses Ascites Chronic Matthew Jerome M.B.B.SSuma, [facility] Procedures US Paracentesis with Imaging Guidance MJules [address] [place] [phone] Referral ID Status Reason Start Date Expiration Date Visits V isits Requested Authorized [id number] Authorized 11/19/2021 11/19/2022 1 1 Outpatient (Routine) - Pending Review Specialty Diagnoses / Procedures Referred By Contact Refer red To Contact Diagnoses Ascites Chronic Matthew Jerome M.B.BSumaSSuma, [facility] Procedures US Paracentesis with Imaging Guidance M.DSuma [address] [place] [phone] Referral ID Status Reason Start Date Expiration Date Visits V isits Requested Authorized [id number] Pending 01/06/2022 01/06/2023 1 1 Review Outpatient (Routine) - Authorized Specialty Diagnoses / Procedures Referred By Contact Refer red To Contact Diagnoses Ascites Chronic Matthew Jerome M.B.B.S., [facility] Procedures US Paracentesis with Imaging Guidance M.D. [address] [place] [phone] Referral ID Status Reason Start Date Expiration Date Visits V isits Requested Authorized [id number] Authorized 11/19/2021 11/19/2022 1 1 Outpatient (Routine) - Closed Specialty Diagnoses / Procedures Referred By Contact Refer red To Contact Diagnoses Ascites Chronic Matthew Jerome M.B.B.S., [facility] Procedures US Paracentesis with Imaging Guidance M.DSuma [address] [place] [phone] Referral ID Status Reason Start Date Expiration Date Visits Requ ested Visits Authorized [id number] Closed 11/19/2021 11/19/2022 1 1 Encounter Details Date Type Department Care Team Description 01/06/2022 Clinical Communication Department of Felicita Spicer [facility] [place] [phone] [address] [place] [phone] Social History Tobacco Use Types Packs/Day [...] you attend congregation or Patient refused 2021 spiritism services? 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 - 01/07/2022 7:48 AM CDT Patient notified [...] Transplant Matthew Jerome M .B.B.S., M.D. [address] [place] [address] 2 Rain Reyes R.N. [address] [place] [phone] Telemedicine [facility] 2 Brigid noyola M.D. [address] [place] [address] [phone] Office Visit [facility] 2 Medicine Vernell Perez [address] [place] [phone] Lab Laboratory Medicine Karin, 2 Adeline Gannon M.D., Ph.D. [address] [place] [address] [phone] Lab Laboratory Medicine Karin, 2 Adeline Gannon M.D., Ph.D. [address] [place] [address] [phone] Office Visit Transplant Karin, 2 Adeline Gannon M.D., Ph.D. [address] [place] [phone] Office Visit Family Medicine CandaceRobbin 2 Lilian Johnson [address] [place] [phone] Appointment Radiology Matthew Jerome 2 Y, M.B.B.SSuma, Lilian [address] [place] [phone] Appointment Gastroenterology and Adrianne, 2 Hepatology Yue Burciaga M.D. [address] [place] [phone] Office Visit Gastroenterology and Matthew Jerome 2 Hepatology Joshua RodriguezB.B.SLilian Moise [address] [place] [phone] Appointment Radiology Matthew Jerome 2 Y M.B.B.SLilian Moise [address] [place] [phone] Hospital Gastroenterology and Queenie Matthew Cirrhos is Alcoholic (HCC) 2 Encounter Hepatology Elizabeth Rodriguez.B.B.SLilian Moise [address] [place] [phone] Anesthesia Event Gastroenterology and Rl, 2 Hepatology Ervin Burgos M.D. [address] [place] [phone] Surgery Gastroenterology and Mousa, Matthew ESOPHAG OGASTRODUODENOSCOPY 2 Hepatology Tyrell Rodriguez M.D. 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 IMG US PROCEDURES documented in this encounter Visit Diagnoses Diagnosis Cirrhosis Alcoholic (HCC) Hypertension Portal (HCC) Ascites Chronic - Primary Chronic Pain Syndrome - Primary Ascites Chronic Hypertension Portal (HCC) Hepatic Failure Unspecified Without Coma (HCC) Alcoholic Cirrhosis Of Liver With Ascite s (HCC) Cirrhosis Alcoholic (HCC) Hypertension Portal (HCC) documented in this encounter Additional Health Concerns Assessment Noted Time PHQ-9 Depression Total Score: 10/06/2021 5:00 PM CD T documented as of this encounter Care Teams Cable Armorer Relationship Specialty Start Date End Date Ana Red P.A.-C. PCP - General Internal Medicine 12/01/[address] [place] [phone] [facility] 08/25/21 Ervin Schroeder MD Referring Provider Family Medicine 03/24/[address] [place] [phone] documented as of this encounter
--- OUTSIDE RECORDS SUMMARY | 2022-02-10 09:30 | XMS_ITS | Encounter Summary ---
:1990 Author Organization [facility] Address [address] [place] [address] Care Team Providers Name Role Phone Ana Red P.A.-C. Primary Care Provider [phone] Reason for Referral Transplant (Routine) - Authorized Specialty Diagnoses / Procedures Referred By Contact Refer red To Contact Transplant [facility] MonicaSZara, M.S.W. [address] [place] [address] Referral ID Status Reason Start Date Expiration Date Visits V isits Requested Authorized [id number] Authorized 01/13/2022 01/12/2025 1 1 Scheduling Instructions Please schedule a follow up visit with Jt vasquez [facility]. Patient prefers video visit. Thank you. Encounter Details Date Type Department Care Team Description 01/13/2022 Orders Only Department of Social Work Rajiv Tan, in [facility] Vinay.S.W., M.S.W. 200 [facility] 200 [place] [phone] [place] [address] [phone] (Wo rk) Social History Tobacco Use Types [...] you attend gnosticist or Patient refused 2021 yazidism services? 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 [address] [place] [address] 2 Rain Reyes R.N. [address] [place] [address] [phone] Telemedicine Transplant LinaFederico 2 Brigid noyola M.D. [address] [place] [phone] Office Visit Community Internal Neda, 2 Medicine Vernell Perez [address] [place] [address] Lab Laboratory Medicine Karin, 2 Adeline Gannon M.D., Ph.D. [address] [place] [phone] Lab Laboratory Medicine Karin, 2 Adeline Gannon M.D., Ph.D. [address] [place] [phone] Office Visit Transplant Karin, 2 Adeline Gannon M.D., Ph.D. [address] [place] [phone] Office Visit Family Medicine Robbin Maria 2, M.D. [address] [place] [phone] Appointment Radiology New Jeromear 2 Tyrell Rodriguez M.D. [address] [place] [phone] Appointment Gastroenterology and Adrianne, 2 Hepatology Yue Burciaga M.D. [address] [place] [phone] Office Visit Gastroenterology and Matthew Jerome 2 Hepatology Tyrell Rodriguez M.D. [address] [place] [phone] Appointment Radiology LuisMatthew abdul 2 Tyrell Rodriguez M.D. [address] [place] [phone] Hospital Gastroenterology and Matthew Jerome Cirrhos is Alcoholic (HCC) 2 Encounter Hepatology Tyrell Rodriguez M.D. [address] [place] [phone] Anesthesia Event Gastroenterology and Rl, 2 Hepatology Ervin Burgos M.D. 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 PCP - General Internal Medicine 12/01/[address] [place] [phone] [facility] [place] [facility] 08/25/21 Ervin Schroeder MD Referring Provider Family Medicine 03/24/[address] [place] [phone] documented as of this encounter
--- OUTSIDE RECORDS SUMMARY | 2022-02-10 09:30 | XMS_ITS | Encounter Summary ---
:1990 Author Organization [facility] Address [address] [place] [address] Care Team Providers Name Role Phone Ana Red P.A.-C. Primary Care Provider [phone] Reason for Visit Transplant (Routine) - Closed Specialty Diagnoses / Procedures Referred By Contact Refer red To Contact Transplant Surgery / Joel Tan [facility] L.I.C.S.W., M.S.W. [address] [place] [address] Referral ID Status Reason Start Date Expiration Date Visits Requ ested Visits Authorized [id number] Closed 10/29/2021 10/29/2022 1 1 Encounter Details Date Type Department Care Team Description 01/13/2022 Telemedicine Joel Sage hosis Alcoholic Center for L, L.I.C.S.W., (HCC) (Primar y Dx) Transplantation and M.S.W. Clinical Regeneration in [address] [place], [place] [address] [facility] [address] [place] [address] [phone] Social History Tobacco Use Types Packs/Day Years [...] How often do you attend restorationism or Patient refused 2021 anabaptist services? 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 - 01/13/2022 10:45 AM CDT Consult conducted remotely via real-time audio/video technology through HIPAA compliant Zoom by Shala Shields, Michi to the patient at her hospital room: [place] [address]. This Video Visit was performed during the [...] follow up. She is currently hospitalized at [facility]. 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 He stated he has spoken with [...] medical marijuana. She stated [facility] Ana [facility] PA-C, at [facility], whom she states has prescribed herFlexeril due to a pulled muscle in the patient's back and also back spasms. The patient is wonderingabout working with physical therapy after her discharge from the hospital. I advised the patient to contact her nurse and/or doctor while she is currently hospitalized to inquire about this and have also informed inpatient aids social worker, Alexei Deshpande, [facility], about the patient's inquiry. The patient [...] management per Radhames Neumann, Ph.D., L.P. in [place] [facility] (Pain Rehabilitation), 10/06/2021: - virtual [...] her in the mail in regards to [facility]'s outpatient addiction program and believes they are [...] patient met with Dr. Keen with Transplant [facility]iat[facility] on 10/22/2021 who indicatedthe [...] Transplant Matthew Jerome M .B.B.S., M.D. [address] [place] [address] 2 Rain Reyes R.N. [address] [place] [phone] Telemedicine Transplant Ashtyn 2 Brigid noyola M.D. [address] [place] [phone] Office Visit Community Internal Neda, 2 Solitario Perez P.A.-C. [address] [place] [phone] Lab Laboratory Medicine Karin, 2 Adeline Gannon M.D., Ph.D. [address] [place] [phone] Lab Laboratory Medicine Karin, 2 Adeline Gannon M.D., Ph.D. [address] [place] [phone] Office Visit Transplant Karin, 2 Adeline Gannon M.D., Ph.D. [address] [place] [phone] Office Visit Family Medicine Robbin Maria 2, M.D. [address] [place] [phone] Appointment Radiology Matthew Jerome 2 YJoshuaBSumaBLilian Bedolla [address] [place] [phone] Appointment Gastroenterology and Adrianne, 2 Hepatology Yue Burciaga M.D. [address] [place] [phone] Office Visit Gastroenterology and Matthew Jerome 2 Hepatology Joshua RodriguezBSumaBLilian Bedolla [address] [place] [phone] Appointment Radiology Matthew Jerome 2 Joshua RodriguezB.BLilian Bedolla [address] [place] [phone] Hospital Gastroenterology and Matthew Jerome Cirrhos is Alcoholic (HCC) 2 Encounter Hepatology Vik RodriguezBLilian Bedolla [address] [place] [phone] Anesthesia Event Gastroenterology and Rl, 2 Hepatology Ervin Burgos M.D. [address] [place] [phone] Surgery Gastroenterology and Mousa, Matthew ESOPHAG OGASTRODUODENOSCOPY 2 Hepatology Tyrell Rodriguez M.D. 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 PCP - General Internal Medicine 12/01/[address] [place] [phone] [facility] 08/25/21 Ervin Schroeder MD Referring Provider Family Medicine 03/24/[address] [place] [address] documented as of this encounter
--- OUTSIDE RECORDS SUMMARY | 2022-02-10 09:30 | XMS_ITS | Encounter Summary ---
:1990 Author Organization [facility] Address [address] [place] [address] Care Team Providers Name Role Phone Ana ZamudioASuma-CSuma Primary Care Provider Reason for Referral Outpatient (Routine) - Authorized Specialty Diagnoses / Procedures Referred By Contact Refer red To Contact [facility] Internal Ana Zamudio [facility] P.A.-CSuma 300 [facility] [place] [address] Referral ID Status Reason Start Date Expiration Date Visits V isits Requested Authorized [id number] Authorized 01/07/2022 01/06/2025 1 1 Reason for Visit Reason Comments Follow-up Cirrhosis and Hepatic Enceph alopathy. Back Pain Back Pain for 3 1/2 weeks. Outpatient (Routine) - Closed Specialty Diagnoses / Procedures Referred By Contact Refer red To Contact [facility] Internal JESSE [facility] Adair Correa [address] [place] [address] Referral ID Status Reason Start Date Expiration Date Visits Requ ested Visits Authorized [id number] Closed 12/02/2021 12/02/2022 1 1 Encounter Details Date Type Department Care Team Description 01/07/2022 Office Visit Department of Internal Deanovic, Hyper tension Portal (HCC) (Primary Dx); Medicine in [place] .A[place]. Cirrhosis Alcoholic (HCC); [place] [address] Ascites; [address] [place], [place] Pancreatitis Chronic (HCC); [place] [address] Pain Low Back Mechanical [phone] Social History [...] you attend worship or Patient refused 2021 bahai services? 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 - 01/07/2022 3:30 PM CDT SUBJECTIVE [...] She previously received her medical care through [facility]. 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 She was a heavy drinking in her 20s. She follows with GI and hepatology in [place]. She gets frequent paracentesis for ascites. 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 She has a paracentesis scheduled for two [...] pap smears. We cannot see records from [place]. Other orders - Community Internal Medicine office [...] 3 months or sooner if needed. Ana Zamudio P.A.-C. documented in this encounter Miscellaneous Notes Addendum Note - Ana Zamudio P.A.-C. - 01/07/2022 3:30 PM CDT Addended by: ANA ZAMUDIO on: 01/19/2022 02:17 PM Modules accepted: Orders Addendum Note - Ana Zamudio P.A.-C. - 01/07/2022 3:30 PM CDT Addended by: ANA ZAMUDIO on: 01/19/2022 02:20 PM Modules accepted: Orders documented in this encounter Plan of Treatment Upcoming Encounters Date Type Specialty Care Team Description Virtual Visit Transplant Matthew Jerome M .B.B.S., Lilian [address] [place] [address] 2 Rain Reyes R.N. [address] [place] [phone] Telemedicine [facility]plant [facility] 2 Brigid noyola M.D. [address] [place] [phone] Office Visit Community Internal Neda, Olinda Medicine Vernell Perez 300 [place] [phone] Lab Laboratory Medicine Karin, 2 Adeline Gannon M.D., Ph.D. [address] [place] [phone] Lab Laboratory Medicine Karin, 2 Adeline Gannon M.D., Ph.D. [address] [place] [phone] Office Visit Transplant Karin, 2 Adeline Gannon M.D., Ph.D. [address] [place] [phone] Office Visit Family Medicine Robbin Maria 2, M.D. 300 [place] [phone] Appointment Radiology Matthew Jerome 2 M.B.B.SLilian Moise [address] [place] [phone] Appointment Gastroenterology and Adrianne 2 Hepatology Yue Burciaga M.D. [address] [place] [phone] Office Visit Gastroenterology and Matthew Jerome 2 Hepatology Joshua RodriguezB.B.SLilian Moise 10[address] [place] [phone] Appointment Radiology Matthew Jerome 2 Tyrell Rodriguez M.D. [address] [place] [phone] Hospital Gastroenterology and Matthew Jerome Cirrhos is Alcoholic (HCC) 2 Encounter Hepatology Tyrell Rodriguez M.D. [address] [place] [phone] Anesthesia Event Gastroenterology and Rl, 2 Hepatology Ervin Burgos M.D. [address] [place] [phone] Surgery Gastroenterology and Queenie Matthew ESOPHAG OGASTRODUODENOSCOPY 2 Hepatology Tyrell Rodriguez M.D. 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 PCP - General Internal Medicine 12/01/[address] [place] [address] BAYADI WRIGHT [phone] [facility]- [facility] 08/25/21 Ervin Schroeder MD Referring Provider Family Medicine 03/24/[address] [place] [address] ADI Mejía [phone] documented as of this encounter
--- OUTSIDE RECORDS SUMMARY | 2022-02-10 09:30 | XMS_ITS | Encounter Summary ---
:1990 Author Organization [facility] Address [address] [place] [address] Care Team Providers Name Role Phone Ana Red P.A.-C. Primary Care Provider [phone] Encounter Details Date Type Department Care Team Description 01/13/2022 Clinical Communication Division of Digna Campbell Gastroenterology in Lil[place], [place] [address] [facility] [address] [place] [phone] Social History Tobacco Use Types Packs/Day Years [...] you attend gnosticist or Patient refused 2021 lutheran services? Do [...] or the highest technical, or vocational p Uberpongram degree you have received? 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 - 01/14/2022 12:42 PM CDT Thank you for the update. Ms. Carias is a patient of Dr. Jerome's, one of the transplant hepatologists. We are her inpatient GI team. Concerns about transplant evaluation can be addressed at her upcomingappointment with him. Thank you. documented in this encounter Plan of Treatment Upcoming Encounters Date Type Specialty Care Team Description Virtual Visit Transplant Matthew Jerome M .B.B.S., M.D. [address] [place] [phone] 2 Rain Reyes R.N. [address] [place] [phone] Telemedicine Transplant LinaDemarcus 2 Brigid noyola M.D. [address] [place] [phone] Office Visit Community Internal [facility], 2 Medicine Vernell Perez 300 [place] [address] Lab Laboratory Medicine Karin, 2 Adeline Gannon M.D., Ph.D. [address] [place] [phone] Lab Laboratory Medicine Karin, 2 Adeline Gannon M.D., Ph.D. [address] [place] [phone] Office Visit Transplant Karin, 2 Adeline Gannon M.D., Ph.D. [address] [place] [phone] Office Visit Family Medicine Robbin Maria 2, M.D. 300 [place] [phone] Appointment Radiology Matthew Jerome 2 YTyrell, MJules 10[address] [place] [address] Appointment Gastroenterology and Adrianne, 2 Hepatology Yue Burciaga M.D. [address] [place] [phone] Office Visit Gastroenterology and Matthew Jerome 2 Hepatology Tyrell Rodriguez M.D. [address] [place] [phone] Appointment Radiology Matthew Jerome 2 Tyrell Rodriguez M.D. [address] [place] [phone] Hospital Gastroenterology and Queenie Matthew Cirrhos is Alcoholic (HCC) 2 Encounter Hepatology Tyrell Rodriguez M.D. [address] [place] [phone] Anesthesia Event Gastroenterology and Rl, 2 Hepatology Ervin Burgos M.D. [address] [place] [phone] Surgery Gastroenterology and Queenie Matthew ESOPHAG OGASTRODUODENOSCOPY 2 Hepatology Tyrell Rodriguez M.D. [address] [place] [phone] Scheduled Procedures Name Priority Associated Diagnoses Date/Time ESOPHAGOGASTRODUODENOSCOPY Cirrhosis Alc oholic (HCC) 03/20/2022 8:45 AM CONVERTER SKIMMER Hypertension Portal (HCC) documented as of this encounter Visit Diagnoses Not on filedocumented in this encounter Additional Health Concerns Assessment Noted Time PHQ-9 Depression Total Score: 10 10/06/2021 5:00 PM CD T documented as of this encounter Care Teams Rack Puller Relationship Specialty Start Date End Date Deanovic, Ana, P.A.-C. PCP - General Internal Medicine 8/1/[address] [place] [address] [place] [phone] [facility]- [facility] 08/25/21 Ervin Schroeder MD Referring Provider Family Medicine 03/24/[address] [place] [address] [place] [address] documented as of this encounter
--- OUTSIDE RECORDS SUMMARY | 2022-02-10 09:31 | XMS_ITS | Encounter Summary ---
:1990 Author Organization [facility] Address [address] [place] [address] Care Team Providers Name Role Phone Ana Red P.A.-C. Primary Care Provider [phone] Reason for Visit Reason Comments Back Pain Encounter Details Date Type Department Care Team Description 12/19/2021 Nurse Triage Department of [facility] , Back Pain Internal Medicine in [place], [place] [address] [facility] 300 [place], [place] [phone] Social History Tobacco Use Types Packs/Day Years [...] How often do you attend restorationist or Patient refused 2021 voodoo services? Do you belong to any clubs or No 02/10/2022 organizations such as restorationist groups, unions, fraternal [...] or the highest technical, or vocational p Niblitzram degree you have received? 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 Call your doctor (or PROCESS OWNER/PA) now or as soon as the office [...] need to be seen. Your doctor (or PROCESS OWNER/PA) will want to talk with you to [...] acetaminophen, ibuprofen, or naproxen. * They are qcpz-qbs-rvresei (OTC) pain drugs. You can buy them [...] Transplant Matthew Jerome M .B.B.S., Lilian [address] [place] [address] 2 Rain Reyes R.N. [address] [place] [phone] Telemedicine Transplant LinaFederico 2 Brigid noyola M.D. [address] [place] [phone] Office Visit Community Internal Neda, 2 Solitario Perez P.A.-C. 300 [place] [phone] Lab Laboratory Medicine Karin, 2 Adeline Gannon M.D., Ph.D. [address] [place] [phone] Lab Laboratory Medicine Olinda Frazier M.D., Ph.D. [address] [place] [phone] Office Visit Transplant Karin, Olinda Gannon M.D., Ph.D. [address] [place] [phone] Office Visit Family Medicine Robbin Maria 2, M.D. [address] [place] [phone] Appointment Radiology Matthew Jerome 2 YJoshuaB.B.SSuma, Lilian [address] [place] [phone] Appointment Gastroenterology and Adrianne 2 Hepatology Yue Burciaga M.D. [address] [place] [phone] Office Visit Gastroenterology and Matthew Jerome 2 Hepatology Joshua RodriguezB.B.SLilian Moise [address] [place] [phone] Appointment Radiology Matthew Jerome 2 Jennifer MSumaB.B.SLilian Moies [address] [place] [phone] Hospital Gastroenterology and Matthew Jerome Cirrhos is Alcoholic (HCC) 2 Encounter Hepatology Joshua RodriguezB.BLilian Bedolla [address] [place] [phone] Anesthesia Event Gastroenterology and Rl, 2 Hepatology Ervin Burgos M.D. [address] [place] [phone] Surgery Gastroenterology and Mousa, Matthew ESOPHAG OGASTRODUODENOSCOPY 2 Hepatology Tyrell Rodriguez M.D. [address] [place] [address] [phone] Scheduled Procedures Name Priority Associated Diagnoses Date/Time ESOPHAGOGASTRODUODENOSCOPY Cirrhosis Alc oholic (HCC) 03/20/2022 8:45 AM DIRECTOR OCCUPATIONAL Hypertension Portal (HCC) documented as of this encounter Visit Diagnoses Not on filedocumented in this encounter Additional Health Concerns Assessment Noted Time PHQ-9 Depression Total Score: 10 10/06/2021 5:00 PM CD T documented as of this encounter Care Teams Network Programmer Relationship Specialty Start Date End Date Ana Red P.A.-C. PCP - General Internal Medicine 12/01/[address] [place] [phone] [facility] [place] [facility] 08/25/21 Ervin Schroeder MD Referring Provider Family Medicine 03/24/[address] [place] [address] documented as of this encounter
--- OUTSIDE RECORDS SUMMARY | 2022-02-10 09:31 | XMS_ITS | Encounter Summary ---
:1990 Author Organization [facility] [place] [facility] Address [address] [place] [address] Care Team Providers Name Role Phone Ana Red P.A.-C. Primary Care Provider Reason for Visit Reason Comments Phone Contact Appointment LABS Encounter Details Date Type Department Care Team Description 12/11/2021 Clinical Ramirez Barajas, Phone Contact; Communication Center for [place] (Jagdeep HERRON) Transplantation and [place], Ph.D. Clinical [facility] [address] [place] [address] [address] [facility] [phone] Social History Tobacco Use Types Packs/Day Years [...] you attend shinto or Patient refused 2021 religion services? Do you belong to any clubs or No 02/10/2022 organizations such as shinto groups, unions, fra[employer]ined [employer] or athletic groups, or school groups? [...] or the highest technical, or vocational p [facility] degree you have received? 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 [address] [place] [phone] [facility] 2 Brigid noyola M.D. [address] [place] [phone] Office Visit Community Internal [facility], 2 Medicine Vernell Perez 300 [place] [address] Lab Laboratory Medicine Karin, 2 Adeline Gannon M.D., Ph.D. [address] [place] [phone] Lab Laboratory Medicine Karin, 2 Adeline Gannon M.D., Ph.D. [address] [place] [phone] Office Visit Transplant Karin, 2 Adeline Gannon M.D., Ph.D. [address] [place] [phone] Appointment Radiology Matthew Jerome 2, M.B.B.S., MJules [address] [place] [address] Appointment Gastroenterology demian Silver, 2 Hepatology Yue Burciaga M.D. [address] [place] [phone] Office Visit Gastroenterology and [facility] Matthew 2 Hepatology Tyrell Rodriguez M.D. [address] [place] [phone] [facility]ointment [facility] 2 Tyrell Rodriguez M.D. [address] [place] [phone] [facility] Gastroenterology and [facility] Cirrhos is Alcoholic (HCC) 2 Encounter Hepatology Tyrell Rodriguez M.D. [address] [place] [phone] Anesthesia Event Gastroenterology and Rl, 2 Hepatology Ervin Burgos M.D. [address] [place] [phone] Surgery Gastroenterology and [facility] ESOPHAG OGASTRODUODENOSCOPY 2 Hepatology Tyrell Rodriguez M.D. [address] [place] [phone] Scheduled Procedures Name Priority Associated Diagnoses Date/Time ESOPHAGOGASTRODUODENOSCOPY Cirrhosis Alc oholic (HCC) 03/20/2022 8:45 AM BRUSH WASHER Hypertension Portal (HCC) documented as of this encounter Visit Diagnoses Not on filedocumented in this encounter Additional Health Concerns Assessment Noted Time PHQ-9 Depression Total Score: 10 10/06/2021 5:00 PM CD T documented as of this encounter Care Teams Shook Machine Operator Relationship Specialty Start Date End Date Ana Red P.A.-C. PCP - General Internal Medicine 12/01/[address] [place] [address] ADI Chua [phone] [facility]- [facility] 08/25/21 Ervin Schroeder MD Referring Provider Family Medicine 03/24/[address] [place] [address] ADI Mejía [address] documented as of this encounter
--- OUTSIDE RECORDS SUMMARY | 2022-02-10 09:31 | XMS_ITS | Encounter Summary ---
:1990 Author Organization [facility] Address [address] [place] [address] Care Team Providers Name Role Phone Ana Red P.A.-C. Primary Care Provider [phone] Encounter Details Date Type Department Care Team Description 12/04/2021 Clinical Communication Division of Jethro, Gastroenterology in [place] Echevarria [place], [place] [address] [facility] [address] [place] [phone] Social History Tobacco Use Types Packs/Day Years [...] you attend adventism or Patient refused 2021 christian services? 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 [address] [place] [address] 2 Rain Reyes R.N. [address] [place] [address] [phone] Telemedicine Transplant Ashtyn 2 Brigid noyola M.D. [address] [place] [phone] Office Visit Community Internal Neda, 2 Medicine Vernell Perez 300 [facility] [place] [phone] Lab Laboratory Medicine Karin, 2 Adeline Gannon M.D., Ph.D. [address] [place] [phone] Lab Laboratory Medicine Karin, 2 Adeline Gannon M.D., Ph.D. [address] [place] [phone] Office Visit Transplant Karin, 2 Adeline Gannon M.D., Ph.D. [address] [place] [phone] Appointment Radiology Matthew eJrome 2 Y, M.B.B.SSuma, MJules [address] [place] [address] [phone] Appointment Gastroenterology and Adrianne, 2 Hepatology Yue Burciaga M.D. [address] [place] [phone] Office Visit Gastroenterology and Matthew Jerome 2 Hepatology Jennifer M.B.B.SSuma, MJules [address] [place] [phone] Appointment Radiology Matthew Jerome 2 Y M.B.B.SSuma, MJules [address] [place] [phone] [facility] Gastroenterology and Mousa, Mattehw Cirrhos is Alcoholic (HCC) 2 Encounter Hepatology Tyrell Rodriguez M.D. [address] [place] [address] [phone] Anesthesia Event Gastroenterology and Rl, 2 Hepatology Ervin Burgos M.D. [address] [place] [address] [phone] Surgery Gastroenterology and Mousa, Matthew ESOPHAG OGASTRODUODENOSCOPY 2 Hepatology Tyrell Rodriguez M.D. [address] [place] [address] [phone] Scheduled Procedures Name Priority Associated Diagnoses Date/Time ESOPHAGOGASTRODUODENOSCOPY Cirrhosis Alc oholic (HCC) 03/20/2022 8:45 AM CHLORINE PLANT OPERATOR Hypertension Portal (HCC) documented as of this encounter Visit Diagnoses Diagnosis Ascites - Primary Cirrhosis Alcoholic (HCC) Cirrhosis Alcoholic (HCC) Hypertension Portal (HCC) documented in this encounter Additional Health Concerns Assessment Noted Time PHQ-9 Depression Total Score: 10 10/06/2021 5:00 PM CD T documented as of this encounter Care Teams Laboratory Manager Relationship Specialty Start Date End Date Ana Red P.A.-C. PCP - General Internal Medicine 12/01/[address] [place] [address] [place] [phone] [facility] [place] lab 08/25/21 Ervin Schroeder MD Referring Provider Family Medicine 03/24/[address] [place] [address] [place] [address] documented as of this encounter
--- OUTSIDE RECORDS SUMMARY | 2022-02-10 09:31 | XMS_ITS | Encounter Summary ---
:1990 Author Organization [facility] Address [address] [place] [address] Care Team Providers Name Role Phone Ana Red P.A.-C. Primary Care Provider [phone] Encounter Details Date Type Department Care Team Description 12/04/2021 Clinical Communication Division of Jethro, Gastroenterology in [place] Echevarria [place], [place] [address] [facility] [address] [place] [phone] Social History Tobacco Use Types Packs/Day Years [...] How often do you attend religious or Patient refused 2021 yarsanism services? 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 [address] [place] [address] 2 Rain Reyes R.N. [address] [place] [address] [phone] Telemedicine Transplant Ashtyn 2 Brigid noyola M.D. [address] [place] [phone] Office Visit Community Internal Neda, 2 Medicine Vernell Perez 300 [facility] [place] [phone] Lab Laboratory Medicine Karin, 2 Adeline Gannon M.D., Ph.D. [address] [place] [phone] Lab Laboratory Medicine Karin, 2 Adeline Gannon M.D., Ph.D. [address] [place] [phone] Office Visit Transplant Karin, 2 Adeline Gannon M.D., Ph.D. [address] [place] [phone] Appointment Radiology Matthew Jerome 2 Y, M.B.B.SSuma, MJules [address] [place] [address] [phone] Appointment Gastroenterology and Adrianne, 2 Hepatology Yue Burciaga M.D. [address] [place] [phone] Office Visit Gastroenterology and Matthew eJrome 2 Hepatology Jennifer M.B.B.SSuma, MJules [address] [place] [phone] Appointment Radiology Matthew Jerome 2 Y M.B.B.SSuma, MJules [address] [place] [phone] [facility] Gastroenterology and Mousa, Matthew Cirrhos is Alcoholic (HCC) 2 Encounter Hepatology Tyrell Rodriguez M.D. [address] [place] [address] [phone] Anesthesia Event Gastroenterology and Rl, 2 Hepatology Ervin Burgos M.D. [address] [place] [address] [phone] Surgery Gastroenterology and Mousa, Matthew ESOPHAG OGASTRODUODENOSCOPY 2 Hepatology Tyrell Rodriguez M.D. [address] [place] [address] [phone] Scheduled Procedures Name Priority Associated Diagnoses Date/Time ESOPHAGOGASTRODUODENOSCOPY Cirrhosis Alc oholic (HCC) 03/20/2022 8:45 AM DIRECT ENTRY MIDWIFE Hypertension Portal (HCC) documented as of this encounter Visit Diagnoses Diagnosis Ascites - Primary Cirrhosis Alcoholic (HCC) Cirrhosis Alcoholic (HCC) Hypertension Portal (HCC) documented in this encounter Additional Health Concerns Assessment Noted Time PHQ-9 Depression Total Score: 10 10/06/2021 5:00 PM CD T documented as of this encounter Care Teams Peanut Farmer Relationship Specialty Start Date End Date Ana Red P.A.-C. PCP - General Internal Medicine 12/01/[address] [place] [address] [place] [phone] [facility] [place] lab 08/25/21 Ervin Schroeder MD Referring Provider Family Medicine 03/24/[address] [place] [address] [place] [address] documented as of this encounter
--- OUTSIDE RECORDS SUMMARY | 2022-02-10 09:31 | XMS_ITS | Encounter Summary ---
:1990 Author Organization [facility] Address [address] [place] [address] Care Team Providers Name Role Phone Ana Red P.A.-C. Primary Care Provider Reason for Visit Reason Comments Back Pain Encounter Details Date Type Department Care Team Description 12/19/2021 - Emergency [facility] Katrin Gonzalez M.D., Ph.D. [address] [place] [phone] Pain Back (Primary 12/20/2021 Emergency Department Migue Garcia Jr., M.D. [address] [place] [phone] Dx) [address] [place] [phone] Social History Tobacco Use Types Packs/Day [...] How often do you attend yazidism or Patient refused 2021 mormonism services? 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 12/20/21 2231 Harinder Nguyễn M.D. - 12/20/2021 2:40 AM [...] Transplant Matthew Jerome M .B.B.S., Lilian [address] [place] [address] 2 Rain Reyes R.N. [address] [place] [phone] Telemedicine Transplant Ashytn 2 Brigid noyola M.D. [address] [place] [address] [phone] Office Visit Community Internal Neda, 2 Medicine Vernell Perez 300 [place] [phone] Lab Laboratory Medicine Karin, 2 Adeline Gannon M.D., Ph.D. [address] [place] [address] [phone] Lab Laboratory Medicine Karin, 2 Adeline Gannon M.D., Ph.D. [address] [place] [address] [phone] Office Visit Transplant Karin, 2 Adeline Gannon M.D., Ph.D. [address] [place] [address] [phone] Office Visit Family Medicine Robbin Maria 2, M.D. 300 [place] [phone] Appointment Radiology Matthew Jerome 2 M.B.B.SSuma, M.Jeri 10[address] [place] [phone] Appointment Gastroenterology and Adrianne 2 Hepatology Yue Burciaga M.D. [address] [place] [address] [phone] Office Visit Gastroenterology and Matthew Jerome 2 Hepatology Tyrell Rodriguez, Lilian [address] [place] [phone] Appointment Radiology [facility] 2 YTyrell, Lilian [address] [place] [phone] Hospital Gastroenterology and [facility] Cirrhos is Alcoholic (HCC) 2 Encounter Hepatology Tyrell Rodriguez, Lilian [address] [place] [phone] Anesthesia Event Gastroenterology and Rl, 2 Hepatology Ervin Burgos M.D. 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 Method Time Signature Glucose, POCT, Negative Negative 12/20/2021 [facility] U mg/dL 4:22 AM CDT Ketone, POCT, Negative Negative 12/20/2021 [facility] U mg/dL 4:22 AM CDT Specific 1.020 1.005 - 12/20/2021 [facility] [place], POCT, 1.030 4:22 AM CDT U Blood, [...] POCT ORDERABLES - DEVICE Performing Organization Address City/[facility]/ZIP Code Phon e Number POC RST [facility] 200 [place] [address] OUTPATIENT LABS PCED [facility] [place] [address] [facility] 200 [facility] Dipstick, Urine (12/20/2021 4:17 AM CDT) Patholo gist Method [...] M.D. LAB URINE ORDERABLES Performing Organization Address City/[facility]/ZIP Code Phon e Number [facility] - [address] [place] [phone] [facility] [place] [address] Laboratories[address] pH, Random, Urine (12/20/2021 4:17 AM CDT) P athologist Signature pH, Random, U 5.5 4.5 - 8.0 12/20/2021 DTL 5:17 AM CDT Specimen Anatomical Collection Method Collection Time Receive d Time (Source) Location / / Volume Laterality Urine 12/20/2021 4:17 AM 2 5:00 CDT AM CDT Harinder Nguyễn M.D. LAB URINE ORDERABLES Performing Organization Address City/State/ZIP Code Phon e Number [facility] - 200 [place], [place] [address] [place] [address] Osmolality, Urine (12/20/2021 4:17 AM CDT) P athologist Signature Osmolality, U 451 150 - 1150 12/20/2021 DT mOsm/kg 5:17 AM CDT Specimen Anatomical Collection Method Collection Time Receive d Time (Source) Location / / Volume Laterality Urine 12/20/2021 4:17 AM 2 5:00 CDT AM CDT Harinder Nguyễn M.D. LAB URINE ORDERABLES Performing Organization Address City/[facility]/ZIP Code Phon e Number [facility] - 200 [place], [place] [address] [place] [address] Microscopic Manual (12/20/2021 4:17 AM CDT) athologist Signature Microscopy Normal 12/20/2021 DT 5:29 AM CDT Casts, Hyaline 1-3 /lpf 12/20/2021 DTL 5:29 AM CDT Specimen Anatomical Collection Method Collection Time Receive d Time (Source) Location / / Volume Laterality Urine 12/20/2021 4:17 AM 2 5:00 CDT AM CDT Harinder Nguyễn M.D. LAB URINE ORDERABLES Performing Organization Address City/State/ZIP Code Phon e Number [facility] - 200 [place], [place] [address] [place] [address] Bacterial Culture, Aerobic + Susc, Urine (12/20/2021 4:17 AM CDT) [facility] Method Time Signature Urine Culture No growth 12/21/2021 DT after 1 day 8:03 AM CDT of incubation. Specimen Anatomical Collection Method Collection Time Receive d Time (Source) Location / / Volume Laterality Urine (Urine, 12/20/2021 4:17 AM 12/21/19 22 7:48 Midstream) CDT AM CDT Comment: Specimen Source Site: Urine Harinder Nguyễn M.D. LAB MICROBIOLOGY - GENERAL O RDERABLES Performing Organization Address City/[facility] Phon e Number [facility] - 200 [place], [place] [address] [place] [address] [place] [address] Laboratories[address] Urinalysis with Microscopic: Urine, Midstream (12/20/2021 [...] M.D. LAB URINE ORDERABLES Performing Organization Address City/[facility] Phon e Number [facility] - 200 [place], [place] [address] [facility] [place] [address] [address] Lactate (12/20/2021 3:36 AM CDT) P athologist Signature Lactate, P 1.8 0.5 - 2.2 12/20/2021 [facility] mmol/L 3:54 AM CDT Specimen Anatomical Collection Method Collection Time Receive d Time (Source) Location / / Volume Laterality Blood (Blood, 12/20/2021 3:36 AM 08/20/20 22 3:41 Venous) CDT AM CDT Harinder Nguyễn M.D. LAB BLOOD NON ADD-ON Performing Organization Address City/[facility]/ZIP Code Phon e Number [facility] - 200 [place] [address] [facility] [address] Lipase (12/20/2021 3:36 AM CDT) P athologist Signature Lipase, S 36 13 - 60 U/L 12/20/2021 4:45 DTL AM CDT Specimen Anatomical Collection Method Collection Time Receive d Time (Source) Location / / Volume Laterality Blood (Blood, 12/20/2021 3:36 AM 12/21/19 4:00 Venous) CDT AM CDT Harinder Nguyễn M.D. LAB BLOOD ADD-ON Performing Organization Address [facility] Phon e Number [facility] - [address] [place] [address] (ABNORMAL) Hepatic Function Panel (12/20/2021 3:36 AM [...] M.D. LAB BLOOD ADD-ON Performing Organization Address City/[facility] Phon e Number [facility] - 200 [place], [place] [address] [facility] [place] [address] [address] hCG (Human Chorionic Gonadotropin), Quantitative, (12/20/2021 3:36 AM CDT) P athologist Signature HCG, 0.5 <5 IU/L 12/20/2021 [facility] Quantitative, 4:31 AM CDT , P Specimen Anatomical Collection Method Collection Time Receive d Time (Source) Location / / Volume Laterality Blood (Blood, 12/20/2021 3:36 AM 12/21/19 22 3:41 Venous) CDT AM CDT Harinder Nguyễn M.D. LAB BLOOD ADD-ON Performing Organization Address City/[facility] Phon e Number [facility] - [address] [place] [address] [facility] [place] [address] [address] (ABNORMAL) Basic Metabolic Panel (12/20/2021 3:36 [...] CDT eGFR-Black/Afri 81 >=60 12/20/2021 [facility] can Guatemalan mL/min/BSA 4:08 AM CDT Comment: ----ADDITIONAL INFORMATION---- [...] City/State/ZIP Code Phon e Number [facility] - [address] [place] [address] 05 [place] [address] [facility] [address] [facility] (ABNORMAL) CBC with Differential, Blood (12/20/2021 3:36 AM CDT) [facility] Method Time Signature Hemoglobin 8.0 (L) [...] City/State/ZIP Code Phon e Number [facility] - [address] [place], [place] [address] [place] [address] [facility] [address] documented [...] (COMPLETED) 0026 (Given - Provider: Benja Rosado RGabby) 10 mg, oral, Once, On 12/20/21 at [...] 0642 (New Bag - Provider: Ramirez Castrejon III RGabby)0742 (Due: Stopped - Provider: Ramirez Castrejon III, R.N.) 1,000 mL, intravenous, at 1,000 mL/hr, A dminister over 1 Hours, Once, On 12/20/21 at 0639, For 1 dose documented in this encounter Additional Health Concerns Assessment Noted Time PHQ-9 Depression Total Score: 10 10/06/2021 5:00 PM CD T documented as of this encounter Care Teams Regular Senior Care Provider Relationship Specialty Start Date End Date Ana Red P.A.-C. PCP - General Internal Medicine 12/01/[address] [place], [place] [address]ADI Montoya [phone] [facility]- [place] lab 08/25/21 Ervin Schroeder MD Referring Provider Family Medicine 03/24/[address] [place] [address] ADI Mejía [phone] documented as of this encounter
--- OUTSIDE RECORDS SUMMARY | 2022-02-10 09:31 | XMS_ITS | Encounter Summary ---
:1990 Author Organization [facility] Address [address] [place] [address] Care Team Providers Name Role Phone Ana Red P.A.-C. Primary Care Provider [phone] Encounter Details Date Type Department Care Team Description 12/15/2021 Lab Department of Adeline Frazier Alcohol Moderate Or Severe Use Disorder (Dependence) Uncomplicated (HCC); Laboratory Medicine and Lilian Gannon, Ph.D. Cannabis Use Unspecified Uncomplicated Pathology, [place] [address] [place] [address], in [facility] [phone] [place] [address] [place] [address] Social History Tobacco Use Types [...] you attend sikhism or Patient refused 2021 restorationism services? 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 [address] [place] [phone] Office Visit Community Internal Neda, Olinda Medicine Vernell Perez 300 [place] [phone] Lab Laboratory Medicine Karin, Olinda Gannon M.D., Ph.D. [address] [place] [phone] Lab Laboratory Medicine Karin, 2 Adeline Gannon M.D., Ph.D. [address] [place] [phone] Office Visit Transplant Karin, 2 Adeline Gannon M.D., Ph.D. [address] [place] [phone] Office Visit Family Medicine Robbin Maria 2, M.D. 300 [place] [phone] Appointment Radiology Matthew Jerome 2 Jennifer M.B.B.SSuma, Lilian [address] [place] [phone] Appointment Gastroenterology and Adrianne 2 Hepatology Yue Burciaga M.D. [address] [place] [phone] Office Visit Gastroenterology and Matthew Jerome 2 Hepatology Jennifer MSumaB.B.SLilian Moise [address] [place] [phone] Appointment Radiology Matthew Jerome 2 Tyrell Rodriguez M.D. [address] [place] [phone] Hospital Gastroenterology and [facility] Matthew Cirrhos is Alcoholic (HCC) 2 Encounter Hepatology Tyrell Rodriguez M.D. [address] [place] [phone] Anesthesia Event Gastroenterology and Rl, 2 Hepatology Ervin Burgos M.D. [address] [place] [phone] Surgery Gastroenterology and [facility] ESOPHAG OGASTRODUODENOSCOPY 2 Hepatology Tyrell Rodriguez M.D. 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 12/18/2021 [facility] Interpretation 6:38 AM CDT Comment: ----ADDITIONAL INFORMATION---- This report is intended for use in clini ada monitoring and management of patients. ??It is not intended for use i n employment-related testing. This test was developed and its performa nce characteristics determined by [facility] in a manner consistent with CLIA requirements. This test has not been cleared or approved by the [place] d and Drug Administration. Specimen Anatomical Collection Method Collection Time Receive d Time (Source) Location / / Volume Laterality Urine 12/15/2021 5:58 PM 7:09 CDT AM CDT Adeline Frazier M.D., Ph.D. LAB URINE ORDERABLES Performing Organization Address City/State/ZIP Code Phon e Number [facility] [address] [place], [place] [address] [place], [place] [address]. [place] [address] Laboratory Medicine and Pathology [address] [place] (ABNORMAL) Drug Abuse Survey with Confirmation, Urine (12/15/2021 5:58 PM CDT) [facility] Method Time Signature Alcohol Negative Cutoff: 10 [...] City/State/ZIP Code Phon e Number [facility] [address] [place], [place] [address] SU[facility] [place] [address] Laboratory Medicine and Pathology [address] [place] Ethyl Glucuronide Confirmation, Random, Urine (12/15/2021 5:51 PM CDT) [facility] Method Time Signature Ethyl Glucuronide Negative Cutoff: 12/17/2021 [facility] Confirmation, U 250 ng/mL 10:34 AM CDT Ethyl Sulfate Negative Cutoff: 12/17/2021 [facility] 100 ng/mL 10:34 AM CDT Ethyl Gluc/Sulfate Negative. 12/17/2021 [facility] Interpretation 10:34 AM CDT Comment: ----ADDITIONAL INFORMATION---- This report is intended for use in clini ada monitoring and management of patients. ??It is not intended for use i n employment-related testing. This test was developed and its performa nce characteristics determined by [facility] in a manner consistent with CLIA requirements. [...] City/State/ZIP Code Phon e Number [facility] [address] [place], [place] [address] SUPPORT [facility] [address] Laboratory Medicine and Pathology [address] [...] documented as of this encounter Care Teams Buffer Automatic Relationship Specialty Start Date End Date Ana Red P.A.-C. PCP - General Internal Medicine 12/01/[address] [place] [phone] [facility]- [place] lab 08/25/21 Ervin Schroeder MD Referring Provider Family Medicine 03/24/[address] [place] [phone] documented as of this encounter
--- OUTSIDE RECORDS SUMMARY | 2022-02-10 09:31 | XMS_ITS | Encounter Summary ---
:1990 Author Organization [facility] Address [address] [place] [address] Care Team Providers Name Role Phone Ana Red P.A.-C. Primary Care Provider [phone] Encounter Details Date Type Department Care Team Description 12/12/2021 Documentation [facility] [place], [place] meena Gannon for Transplantation and Mariluz Oliva, M.S.W. Clinical Regeneration in [address] [place] [address] [address] [place] [address] [place] [phone] Social History Tobacco Use Types Packs/Day Years [...] you attend uatsdin or Patient refused 2021 faith services? Do you belong to [...] the highest technical, or vocational p [facility] degree you have received? 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 He stated he has spoken with [...] management per Radhames Neumann, Ph.D., L.P. in [place] [facility] (Pain Rehabilitation), 10/06/2021: - virtual [...] Transplant Matthew Jerome M .B.B.S., MJules 1025 [place] [address] 2 Rain Reyes R.N. [address] [place] [phone] Telemedicine [facility] 2 Brigid noyola M.D. [address] [place] [phone] Office Visit Community Internal [facility], 2 Medicine Vernell Perez 300 [place] [address] Lab Laboratory Medicine Karin, 2 Adeline Gannon M.D., Ph.D. [address] [place] [address] Lab Laboratory Medicine Karin, 2 Adeline Gannon M.D., Ph.D. [address] [place] [phone] Office Visit Transplant Karin, 2 Adeline Gannon M.D., Ph.D. [address] [place] [phone] Appointment Radiology Matthew Jerome 2, M.B.B.S., MJules 1025 [place] [address] Appointment Gastroenterology demian Silver, 2 Hepatology Yue Burciaga M.D. [address] [place] [address] Office Visit Gastroenterology and [facility] 2 Hepatology Tyrell Rodriguez M.D. [address] [place] [phone] Appointment Radiology [facility] Matthew 2 Tyrell Rodriguez M.D. [address] [place] [phone] [facility] Gastroenterology and [facility] Cirrhos is Alcoholic (HCC) 2 Encounter Hepatology Tyrell Rodriguez M.D. [address] [place] [phone] Anesthesia Event Gastroenterology and Rl, 2 Hepatology Ervin Burgos M.D. [address] [place] [phone] Surgery Gastroenterology and [facility] ESOPHAG OGASTRODUODENOSCOPY 2 Hepatology Tyrell Rodriguez M.D. 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 PCP - General Internal Medicine 12/01/[address] [place] [address] ADI Chua [phone] [facility] [place] [facility] 08/25/21 Ervin Schroeder MD Referring Provider Family Medicine 03/24/[address] [place] [address] [place] [address] documented as of this encounter
--- OUTSIDE RECORDS SUMMARY | 2022-02-10 09:31 | XMS_ITS | Encounter Summary ---
:1990 Author Organization [facility] Address [address] [place] [address] Care Team Providers Name Role Phone Ana Red P.A.-C. Primary Care Provider [phone] Encounter Details Date Type Department Care Team Description 12/18/2021 Orders Only Department of Mousa, Matthew Y, Mood Disorde r (HCC) (Primary Dx); Gastroenterology in [place].Joshua Hudson Anxiety Disorder Unspecified [place], [place] [address] [facility] 1025 [place] [address] [phone] Social History Tobacco Use Types Packs/Day Years [...] you attend restorationism or Patient refused 2021 adventism services? Do you belong to any clubs or No 02/10/2022 organizations such as restorationism groups, unions, fraWave Crest Group or athletic groups, or school groups? 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 [address] [place] [phone] Telemedicine Transplant LinaFederico 2 Brigid noyola M.D. [address] [place] [phone] Office Visit Community Internal Neda, Olinda Perez P.A.-C. 300 [place] [phone] Lab Laboratory Medicine Karin, 2 Adeline Gannon M.D., Ph.D. [address] [place] [phone] Lab Laboratory Medicine Karin, 2 Adeline Gannon M.D., Ph.D. [address] [place] [phone] Office Visit Transplant Karin, 2 Adeline Gannon M.D., Ph.D. [address] [place] [phone] Office Visit Family Medicine Robbin Maria 2, M.D. 300 [place] [phone] Appointment Radiology Matthew Jerome 2 M.B.B.SLilian Moise [address] [place] [phone] Appointment Gastroenterology and Adrianne 2 Hepatology Yue Burciaga M.D. [address] [place] [phone] Office Visit Gastroenterology and Matthew Jerome 2 Hepatology Joshua RodriguezB.B.SLilian Moise [address] [place] [address] Appointment Radiology Queenie Matthew 2 YTyrell M.D. [address] [place] [phone] Hospital Gastroenterology and [facility]ell Matthew Cirrhos is Alcoholic (HCC) 2 Encounter Hepatology Tyrell Rodriguez M.D. [address] [place] [address] Anesthesia Event Gastroenterology and Rl, 2 Hepatology Ervin Burgos M.D. [address] [place] [phone] Surgery Gastroenterology and [facility] ESOPHAG OGASTRODUODENOSCOPY 2 Hepatology Tyrell Rodriguez M.D. [address] [place] [phone] Scheduled Procedures Name Priority Associated Diagnoses Date/Time ESOPHAGOGASTRODUODENOSCOPY Cirrhosis Alc oholic (HCC) 03/20/2022 8:45 AM QUALITY CONTROL HEAD Hypertension Portal (HCC) documented as of this encounter Visit Diagnoses Diagnosis Cirrhosis Alcoholic (HCC) Hypertension Portal (HCC) Mood Disorder (HCC) - Primary Anxiety Disorder Unspecified Cirrhosis Alcoholic (HCC) Hypertension Portal (HCC) documented in this encounter Additional Health Concerns Assessment Noted Time PHQ-9 Depression Total Score: 10 10/06/2021 5:00 PM CD T documented as of this encounter Care Teams Well Servicing Rig Operator Relationship Specialty Start Date End Date Ana Red P.A.-C. PCP - General Internal Medicine 12/01/[address] [place] [address] [place] [address] [facility]- [place] lab 08/25/21 Ervin Schroeder MD Referring Provider Family Medicine 03/24/[address] [place] [address], [place] [address] documented as of this encounter
--- OUTSIDE RECORDS SUMMARY | 2022-02-10 09:31 | XMS_ITS | Encounter Summary ---
:1990 Author Organization [facility] Address [address] [place] [address] Care Team Providers Name Role Phone Ana Red PSumaA.-C. Primary Care Provider [phone] Reason for Visit Reason Comments Disability Parking Certificate Encounter Details Date Type Department Care Team Description 12/11/2021 Clinical Communication Department of Sherry Red [facility] Internal Ana, Certifica Medicine in P.A.-C. [place], 300 [facility], [place] 300 [facility] [address] [place] [phone] (Work) [phone] Social History Tobacco Use Types Packs/Day Years [...] How often do you attend cheondoism or Patient refused 2021 latter day services? Do you belong to any clubs or No 02/10/2022 organizations such as cheondoism groups, unions, fraRocket.La or athletic groups, or school groups? How [...] highest technical, or vocational p [facility] degree you have received? 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 - 12/11/2021 9:16 AM CDT Disability Parking Certificate form request received. Please mail to patient after provider has signed. documented in this encounter Plan of Treatment Upcoming Encounters Date Type Specialty Care Team Description Virtual Visit Transplant Matthew Jerome M .B.B.S., M.D. [address] [place] [address] 2 Rain Reyes R.N. [address] [place] [phone] Telemedicine Transplant LinaFederico 2 Brigid noyola M.D. [address] [place] [phone] Office Visit Community Internal [facility], 2 Medicine Vernell Perez 300 [place] [address] Lab Laboratory Medicine Karin, 2 Adeline Gannon M.D., Ph.D. [address] [place] [phone] Lab Laboratory Medicine Karin, 2 Adeline Gannon M.D., Ph.D. [address] [place] [phone] Office Visit Transplant Karin, 2 Adeline Gannon M.D., Ph.D. [address] [place] [phone] Appointment Radiology Matthew Jerome 2 Tyrell Rodriguez, Lilian 1025 [place] [address] Appointment Gastroenterology and Adrianne, 2 Hepatology Yue Burciaga M.D. [address] [place] [phone] Office Visit Gastroenterology and Matthew Jerome 2 Hepatology Tyrell Rodriguez M.D. [address] [place] [address] Appointment Radiology [facility] 2 YTyrell M.D. [address] [place] [phone] Hospital Gastroenterology and [facility] Cirrhos is Alcoholic (HCC) 2 Encounter Hepatology Tyrell Rodriguez M.D. [address] [place] [address] Anesthesia Event Gastroenterology and [facility], 2 Hepatology Ervin Burgos M.D. [address] [place] [phone] Surgery Gastroenterology and [facility] ESOPHAG OGASTRODUODENOSCOPY 2 Hepatology Tyrell Rodriguez M.D. [address] [place] [phone] Scheduled Procedures Name Priority Associated Diagnoses Date/Time ESOPHAGOGASTRODUODENOSCOPY Cirrhosis Alc oholic (HCC) 03/20/2022 8:45 AM TUNG NUT GROWER Hypertension Portal (HCC) documented as of this encounter Visit Diagnoses Not on filedocumented in this encounter Additional Health Concerns Assessment Noted Time PHQ-9 Depression Total Score: 10 10/06/2021 5:00 PM CD T documented as of this encounter Care Teams Air Traffic Instructor Relationship Specialty Start Date End Date Ana Red P.A.-C. PCP - General Internal Medicine 12/01/[address] [place] [address] [place] [phone] [facility]- [facility] lab 08/25/21 Ervin Schroeder MD Referring Provider Family Medicine 03/24/[address] [place] [address] documented as of this encounter
--- OUTSIDE RECORDS SUMMARY | 2022-02-10 09:31 | XMS_ITS | Encounter Summary ---
:1990 Author Organization [facility] Address [address] [place] [address] Care Team Providers Name Role Phone Ana Red P.A.-C. Primary Care Provider [phone] Reason for Visit Reason Comments Follow-up Transplant evaluation Outpatient (Routine) - Closed Specialty Diagnoses / Referred By Contact Referred To Procedures Contact Gastroenterology and Diagnoses Cirrhosis Alcoholic (HCC) Hypertension Portal (HCC) Thrombocytopenia (HCC) Abnormal Liver Function Test Deficiency Vitamin [facility] M.B.B.S., Lilian [address] [place] [address] Referral ID Status Reason Start Date Expiration Date Visits Requ ested Visits Authorized [id number] Closed 10/08/2021 10/08/2022 1 1 Encounter Details Date Type Department Care Team Description 12/10/2021 Office Visit Department of Matthew Jerome Cirrhosis Alco holic (HCC) (Primary Dx); Gastroenterology in , M.B.B.SSuma, Hyperten neptali Portal (HCC); [place], [place] Lilian Thrombocytopenia (HCC); [address] [facility] [address] 1025 [facility] Abnormal Liver Function Test; [place] [address] [place], [place] Deficiency Vitamin A; [phone] [address] Ascites Chronic; [phone] Hepatic Encepha lopathy Without Coma (HCC) (Work) [...] you attend zoroastrian or Patient refused 2021 hoahaoism services? Do you belong to [...] minutes do you engage in exercise at is 10 min 02/10/2022 level? Stress Answer [...] or the highest technical, or vocational p [facility] degree you have received? 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 Please call Parris Tan in [place]. Please follow with the psych counselor at [...] years but intermittently. She was admitted in [place] during the month of October for about [...] missed the voice messages from the social worker psychiatric Parris Tan, and agreed to call her [...] out to the transplant psych team in [place] and Zenobia Hollingsworth sent the information and [...] missing the voice messages from the social worker psychiatric Parris Tan and promised me that she [...] October 2021 #15 Newly diagnosed PFO with [id number] atrial shunt: Echo done March 2020 # [...] OLAYINKA Trotter Gastroenterology, Hepatology and Transplant hepatology [facility] documented in this encounter Plan of Treatment Upcoming Encounters Date Type Specialty Care Team Description Virtual Visit Transplant Matthew Jerome M .B.B.S., M.D. [address] [place] [address] 2 Rain Reyes R.N. [address] [place] [phone] Telemedicine Transplant LinaFederico 2 Brigid noyola M.D. [address] [place] [phone] Office Visit Community Internal Deanovic, 2 Medicine Vernell Perez [address] [place] [address] [place] [address] Lab Laboratory Medicine Karin, 2 Adeline Gannon M.D., Ph.D. [address] [place] [phone] Lab Laboratory Medicine Karin, 2 Adeline Gannon M.D., Ph.D. [address] [place] [phone] Office Visit Transplant Karin, 2 Adeline Gannon M.D., Ph.D. [address] [place] [phone] Appointment Radiology Matthew Jerome 2 Y, M.B.B.SSuma, MJules [address] [place] [phone] Appointment Gastroenterology and Adrianne, 2 Hepatology Yue Burciaga M.D. [address] [place] [phone] Office Visit Gastroenterology and Matthew Jerome 2 Hepatology Jennifer M.B.B.SSuma, Liilan [address] [place] [phone] Appointment Radiology Matthew Jerome 2 Y M.B.B.SLilian Mosie [address] [place] [phone] Hospital Gastroenterology and Mousa, Matthew Cirrhos is Alcoholic (HCC) 2 Encounter Hepatology Tyrell Rodriguez M.D. 10[address] [place] [address] Anesthesia Event Gastroenterology and Rl, 2 Hepatology Ervin Burgos M.D. [address] [place] [phone] Surgery Gastroenterology and [place], Matthew ESOPHAG OGASTRODUODENOSCOPY 2 Hepatology Tyrell Rodriguez M.D. [address] [place] [phone] Scheduled Procedures Name Priority Associated Diagnoses Date/Time ESOPHAGOGASTRODUODENOSCOPY Cirrhosis Alc oholic (HCC) 03/20/2022 8:45 AM BANK COURIER Hypertension Portal (HCC) documented as of this [...] documented as of this encounter Care Teams Roller Bearing Inspector Relationship Specialty Start Date End Date Ana Red P.A.-C. PCP - General Internal Medicine 12/01/21 [facility] [place] [phone] [facility]- [place] lab 08/25/21 Ervin Schroeder MD Referring Provider Family Medicine 03/24/[address] [place] [address] [place] [address] documented as of this encounter
--- OUTSIDE RECORDS SUMMARY | 2022-02-10 09:31 | XMS_ITS | Encounter Summary ---
:[address] [facility] Address [address] [place] [address] Care Team Providers Name Role Phone Ana Red P.A.-C. Primary Care Provider Reason for Visit Reason Comments Ascites Shortness of Breath Encounter Details Date Type Department Care Team Description 12/21/2021 Emergency [facility] Katrin Gonzalez M.D., Ph.D. [address] [place] [phone] Ascites (Primary Dx) Emergency Department Clifton Liu M.D. [address] [place] [phone] [address] [place] [address] Social History Tobacco Use [...] you attend confucianism or Patient refused 2021 jain services? 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 Please see associated documentation [...] she needs to follow up with her condenser winder to schedule the outpatient. DIFFERENTIAL DIAGNOSIS Liver [...] Transplant Matthew Jerome M .B.B.S., M.D. 10[address] [place] [address] 2 Rain Reyes R.N. [address] [place] [phone] Telemedicine Transplant [facility] 2 Brigid noyola M.D. [address] [place] [phone] Office Visit Community Internal Neda, 2 Medicine Vernell Perez 300 [place] [phone] Lab Laboratory Medicine Karin, 2 Adeline Gannon M.D., Ph.D. [address] [place] [phone] Lab Laboratory Medicine Karin, 2 Adeline Gannon M.D., Ph.D. [address] [place] [phone] Office Visit Transplant Karin, 2 Adeline Gannon M.D., Ph.D. [address] [place] [phone] Office Visit Family Medicine Robbin Maria 2, M.D. 300 [place] [address] Appointment Radiology Matthew Jerome 2 M.B.B.SLilian Moise 1025 [place] [address] Appointment Gastroenterology and Adrianne, 2 Hepatology Yue Burciaga M.D. [address] [place] [phone] Office Visit Gastroenterology and Matthew Jerome 2 Hepatology Jennifer MSumaB.B.SLilian Moise 1025 [place] [address] Appointment Radiology [facility] 2 Tyrell Rodriguez M.D. [address] [place] [phone] Hospital Gastroenterology and [facility] Cirrhos is Alcoholic (HCC) 2 Encounter Hepatology Tyrell Rodriguez M.D. [address] [place] [address] Anesthesia Event Gastroenterology and Rl, 2 Hepatology Ervin Burgos M.D. [address] [place] [phone] Surgery Gastroenterology and [facility] ESOPHAG OGASTRODUODENOSCOPY 2 Hepatology Tyrell Rodriguez M.D. 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 PCP - General Internal Medicine 12/01/[address] [place] [phone] [facility] 08/25/21 Ervin Schroeder MD Referring Provider Family Medicine 03/24/[address] [place] [address] documented as of this encounter
--- OUTSIDE RECORDS SUMMARY | 2022-02-10 09:31 | XMS_ITS | Encounter Summary ---
:1990 Author Organization [facility] Address [address] [place] [address] Care Team Providers Name Role Phone Ana Red P.A.-C. Primary Care Provider [phone] Encounter Details Date Type Department Care Team Description 12/04/2021 Clinical Communication Division of Jeth[place], Gastroenterology in [place] Echevarria [place], [place] [address] [facility] [address] [place] [phone] [phone] Social History Tobacco Use Types Packs/Day Years [...] you attend adventist or Patient refused 2021 anabaptist services? 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 1025 [place] [address] 2 Rain Reyes R.N. [address] [place] [phone] Telemedicine Transplant Asht[place] 2 Brigid noyola M.D. [address] [place] [phone] Office Visit Community Internal Neda, 2 Medicine Vernell Perez 300 [facility] [place] [phone] Lab Laboratory Medicine Karin, 2 Adeline Gannon M.D., Ph.D. [address] [place] [phone] Lab Laboratory Medicine Karin, 2 Adeline Gannon M.D., Ph.D. [address] [place] [phone] Office Visit Transplant Karin, 2 Adeline Gannon M.D., Ph.D. [address] [place] [phone] Appointment Radiology Matthew Jerome 2 Y, M.B.B.SSuma, MJules [address] [place] [phone] Appointment Gastroenterology and Adrianne, 2 Hepatology Yue Burciaga M.D. [address] [place] [phone] Office Visit Gastroenterology and Matthew Jerome 2 Hepatology Jennifer M.B.B.SSuma, MJules [address] [place] [phone] Appointment Radiology Matthew Jerome 2 Y M.B.B.SSuma, MJules [address] [place] [phone] [facility] Gastroenterology and Mousa, Matthew Cirrhos is Alcoholic (HCC) 2 Encounter Hepatology Tyrell Rodriguez M.D. [address] [place] [phone] Anesthesia Event Gastroenterology and Rl, 2 Hepatology Ervin Burgos M.D. [address] [place] [address] [phone] Surgery Gastroenterology and Mousa, Matthew ESOPHAG OGASTRODUODENOSCOPY 2 Hepatology Tyrell Rodriguez M.D. [address] [place] [phone] Scheduled Procedures Name Priority Associated Diagnoses Date/Time ESOPHAGOGASTRODUODENOSCOPY Cirrhosis Alc oholic (HCC) 03/20/2022 8:45 AM LIST OF FIRST JOB IDEAS Hypertension Portal (HCC) documented as of this encounter Visit Diagnoses Diagnosis Ascites - Primary Cirrhosis Alcoholic (HCC) Cirrhosis Alcoholic (HCC) Hypertension Portal (HCC) documented in this encounter Additional Health Concerns Assessment Noted Time PHQ-9 Depression Total Score: 10 10/06/2021 5:00 PM CD T documented as of this encounter Care Teams Sumo Wrestler Relationship Specialty Start Date End Date Ana Red P.A.-C. PCP - General Internal Medicine 12/01/[address] [place] [address] [place] [phone] [facility]- [place] lab 08/25/21 Ervin Schroeder MD Referring Provider Family Medicine 03/24/[address] [place] [address] [place] [address] documented as of this encounter
--- OUTSIDE RECORDS SUMMARY | 2022-02-10 09:31 | XMS_ITS | Encounter Summary ---
:1990 Author Organization [facility] Address [address] [place] [address] Care Team Providers Name Role Phone Ana Red P.A.-C. Primary Care Provider [phone] Encounter Details Date Type Department Care Team Description 12/11/2021 Clinical Communication Department of Felicita Spicer Gastroenterology in [place], [place]P.N. [place], [place] [phone] [place] [address] ([facility]) [place] [phone] Social History Tobacco Use Types Packs/Day [...] you attend episcopal or Patient refused 2021 adventist services? Do you belong to any clubs or No 02/10/2022 organizations such as episcopal groups, unions, fraApp47 or athletic groups, or school groups? How [...] or the highest technical, or vocational p [facility] degree you have received? 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 - 12/11/2021 10:51 AM CDT Pals Nurse called and spoke with Radiology nursing department [...] seems they used it for her in [facility] last week and it worked very well for her. Otherwise she has significant anxiety from the procedure. Please let me know Thank you OM documented in this encounter Plan of Treatment Upcoming Encounters Date Type Specialty Care Team Description Virtual Visit Transplant Matthew Jerome M .B.B.S., M.D. [address] [place] [phone] 2 Rain Reyes R.N. [address] [place] [phone] [facility]medicine [facility] 2 Brigid noyola M.D. [address] [place] [phone] Office Visit Community Internal Neda, 2 Medicine Vernell Perez [address] [place] [address] Lab Laboratory Medicine Karin, 2 Adeline Gannon M.D., Ph.D. [address] [place] [address] [phone] Lab Laboratory Medicine CharlesOlinda liu Adeline Gannon M.D., Ph.D. [address] [place] [address] [phone] Office Visit Transplant Karin, Olinda Adeline Gannon M.D., Ph.D. [address] [place] [address] [phone] Appointment Radiology Gachantell Matthew 2 Y, M.B.B.SSuma, Lilian [address] [place] [phone] Appointment Gastroenterology demian Silver 2 Hepatology Yue Burciaga M.D. [address] [place] [address] [phone] [facility]ology Jennifer M.B.B.SiLlian Moise [address] [place] [phone] Appointment Radiology Matthew Jerome 2 Y M.B.B.SLilian Moise [address] [place] [phone] [facility] Gastroenterology and [facility] Cirrhos is Alcoholic (HCC) 2 Encounter Hepatology Jennifer M.B.B.SLilian Moise [address] [place] [phone] Anesthesia Event Gastroenterology and Rl, 2 Hepatology Ervin Burgos M.D. [address] [place] [phone] Surgery Gastroenterology and Mousa, Matthew ESOPHAG OGASTRODUODENOSCOPY 2 Hepatology Tyrell Rodriguez M.D. 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 PCP - General Internal Medicine 12/01/[address] [place] [phone] [facility] [place] [facility] 08/25/21 Ervin Schroeder MD Referring Provider Family Medicine 03/24/[address] [place] [address] [phone] documented as of this encounter
--- OUTSIDE RECORDS SUMMARY | 2022-02-10 09:32 | XMS_ITS | Encounter Summary ---
:1990 Author Organization [facility] Address [address] [place] [address] Care Team Providers Name Role Phone Ana Red P.A.-C. Primary Care Provider Reason for Visit Reason Comments Post Hospital Follow-up Encounter Details Date Type Department Care Team Description 12/02/2021 Clinical Communication Department of [facility] Internal Ciara Johnson R.N. Follow-up Medicine in [address] [place] [phone] 300 [facility] [phone] [place], [place] (Work) [phone] Social History Tobacco Use [...] often do you attend latter day or Patient refused 2021 yarsanism services? 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 [address] [place] [phone] Telemedicine Transplant LinaFederico 2 Brigid noyola M.D. [address] [place] [phone] Office Visit Community [facility], 2 Medicine Carlotta PerezC. [address] [place] [phone] Lab Laboratory Medicine Karin, 2 Adeline Gannon M.D., Ph.D. [address] [place] [phone] Lab Laboratory Medicine Karin, 2 Adeline Gannon M.D., Ph.D. [address] [place] [phone] Office Visit Transplant Karin, 2 Adeline Gannon M.D., Ph.D. [address] [place] [phone] Appointment Radiology Matthew Jerome 2, M.B.B.S., Lilian [address] [place] [address] [phone] Appointment Gastroenterology and Adrianne, 2 Hepatology Yue Burciaga M.D. [address] [place] [phone] Office Visit Gastroenterology and Matthew Jerome 2 Hepatology Tyrell Rodriguez M.D. [address] [place] [address] [phone] Appointment Radiology Matthew Jerome 2 Tyrell Rodriguez M.D. [address] [place] [address] [phone] Hospital Gastroenterology and Queenie Matthew Cirrhos is Alcoholic (HCC) 2 Encounter Hepatology Tyrell Rodriguez M.D. [address] [place] [address] [phone] Anesthesia Event Gastroenterology and Rl, 2 Hepatology Ervin Burgos M.D. 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 PCP - General Internal Medicine 12/01/[address] [place] [phone] [facility]- [facility] 08/25/21 Ervin Schroeder MD Referring Provider Family Medicine 03/24/[address] [place] [phone] documented as of this encounter
--- OUTSIDE RECORDS SUMMARY | 2022-02-10 09:32 | XMS_ITS | Encounter Summary ---
:1990 Author Organization [facility] Address [address] [place] [address] Care Team Providers Name Role Phone Ana Red P.A.-C. Primary Care Provider [phone] Encounter Details Date Type Department Care Team Description 12/02/2021 Hospital Encounter Department of [facility] Cirrhosi s Alcoholic (HCC); Laboratory Medicine Y, M.B.B.S., Hyperten neptali Portal (HCC); in Lilian Paniagua Thrombocytopenia (HCC); [place] [phone] [facility] Abnormal Liver Function Test; [address] [place], [place] Change Mental Status ADI [place] [phone] Social History Tobacco Use Types Packs/Day Years [...] you attend tenriism or Patient refused 2021 christianity services? 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 [address] [place] [phone] Telemedicine [facility] 2 Brigid noyola M.D. [address] [place] [phone] Office Visit [facility] Internal [facility] Alexander Campussoledad, 2 Medicine Vernell Perez [address] [place] [phone] Lab Laboratory Medicine Karin, 2 Adeline Gannon M.D., Ph.D. [address] [place] [phone] Lab Laboratory Medicine Karin, 2 Adeline Gannon M.D., Ph.D. [address] [place] [phone] Office Visit Transplant Karin, 2 Adeline Gannon M.D., Ph.D. [address] [place] [phone] Appointment Radiology Matthew Jerome 2, M.B.B.S., Lilian [address] [place] [phone] Appointment Gastroenterology and Adrianne, 2 Hepatology Yue Burciaga M.D. [address] [place] [phone] Office Visit Gastroenterology and Queenie Matthew 2 Hepatology Tyrell Rodriguez M.D. [address] [place] [phone] Appointment Radiology Queenie Matthew 2 Tyrell Rodriguez M.D. [address] [place] [phone] Hospital Gastroenterology and [facility] Cirrhos is Alcoholic (HCC) 2 Encounter Hepatology Tyrell Rodriguez M.D. [address] [place] [phone] Anesthesia Event Gastroenterology and Rl, 2 Hepatology Ervin Burgos M.D. [address] [place] [phone] Surgery Gastroenterology and [facility] ESOPHAG OGASTRODUODENOSCOPY 2 Hepatology Joshua RodriguezBSumaBLilian Bedolla [address] [place] [address] [phone] Scheduled Procedures Name Priority Associated Diagnoses Date/Time ESOPHAGOGASTRODUODENOSCOPY Cirrhosis Alc oholic (HCC) 03/20/2022 8:45 AM SENIOR ACTUARIAL ANALYST Hypertension Portal (HCC) documented as of this [...] CDT eGFR-Black/Afri >90 >=60 12/02/2021 [place] can Chilean mL/min/BSA 6:46 PM CDT Comment: ----ADDITIONAL INFORMATION---- [...] 12/03/19 22 6:28 Venous) CDT PM CDT Shannan Rand M.D. LAB BLOOD ADD-ON Performing Organization Address City/[facility]/ZIP Code Phon e Number [facility]- [address] [place] [address] [place] [address] System in [place] [facility] [address] (ABNORMAL) Bilirubin, Total (12/02/2021 4:14 PM CDT) P athologist Signature Bilirubin, 11.8 (H) <=1.2 12/02/2021 [place] Total, P mg/dL 6:46 PM CDT Specimen Anatomical Collection Method Collection Time Receive d Time (Source) Location / / Volume Laterality Blood (Blood, 12/02/2021 4:14 PM 12/03/19 22 6:28 Venous) CDT PM CDT Matthew Santillan M.D. LAB BLOOD ADD-ON Performing Organization Address City/[facility]/ZIP Code Phon e Number [facility]- [address] [place] [address], [place] [address] [place] [address] System in [place] [address] [place] [address] (ABNORMAL) Prothrombin Time (PT) (12/02/2021 4:14 PM [...] Code Phon e Number [facility]- [address] [place] [address] [facility] [place] [address] System in [place] [address] documented in this encounter Visit Diagnoses Diagnosis Cirrhosis Alcoholic (HCC) Hypertension Portal (HCC) Thrombocytopenia (HCC) Abnormal Liver Function Test Change Mental Status Cirrhosis Alcoholic (HCC) Cirrhosis Alcoholic (HCC) Hypertension Portal (HCC) documented in this encounter Additional Health Concerns Assessment Noted Time PHQ-9 Depression Total Score: 10 10/06/2021 5:00 PM CD T documented as of this encounter Care Teams Bookmobile Clerk Relationship Specialty Start Date End Date Ana Red P.A.-C. PCP - General Internal Medicine 12/01/[address] [place] [phone] [facility]- [place] [facility] 08/25/21 Ervin Schroeder MD Referring Provider Family Medicine 03/24/211979 [address] [place] [phone] documented as of this encounter
--- OUTSIDE RECORDS SUMMARY | 2022-02-10 09:32 | XMS_ITS | Encounter Summary ---
:1990 Author Organization [facility] Address [address] [place] [address] Care Team Providers Name Role Phone Ana Red P.A.-C. Primary Care Provider [phone] Reason for Visit Reason Comments Abdominal Distention Encounter Details Date Type Department Care Team Description 12/04/2021 Emergency [place], Ascites (Primary Dx); Emergency Department Abdullahi Mendez M.D. Insomnia [address] [place] [address] [address] [place] [phone] (Wo rk) Social History Tobacco Use Types [...] you attend samaritan or Patient refused 2021 christianity services? Do you belong to any clubs or No 02/10/2022 organizations such as samaritan groups, unions, fraEnikos or athletic groups, or school groups? 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 If we can do better, please let us know that too. AttachmentsThe following attachments cannot be sent through Care Everywhere. Paracentesis Care After (Hungarian)Ascites (Hungarian)Trazodone Tablets (Hungarian) documented in this encounter Medications at Time [...] in the past. History provided by: Patient certified court interpreter needed/used: no REVIEW OF SYSTEMS Constitutional: [...] Transplant Matthew Jerome M .B.B.S., M.D. [address] [place] [phone] 2 Rain Reyes RSumaNSuma [address] [place] [phone] Telemedicine Transplant [facility] 2 Brigid noyola M.D. [address] [place] [phone] Office Visit [facility], [facility], 2 Solitario Perez P.A.-C. [address] [place] [phone] Lab Laboratory Medicine Karin, Olinda Gannon M.D., Ph.D. [address] [place] [phone] Lab Laboratory Medicine Olinda Frazier M.D., Ph.D. [address] [place] [phone] Office Visit Transplant Karin, Olinda Gannon M.D., Ph.D. [address] [place] [phone] Appointment Radiology Matthew Jerome 2 Y M.B.B.SLilian Moise [address] [place] [address] [phone] Appointment Gastroenterology and Adrianne, 2 Hepatology Yue Burciaga M.D. [address] [place] [phone] Office Visit Gastroenterology and Matthew Jerome 2 Hepatology Elizabeth Rodriguez.B.B.SLilian Moise [facility] [place] [phone] Appointment Radiology Matthew Jerome 2 Y M.B.B.SLilian Moise [address] [place] [phone] Hospital Gastroenterology and Matthew Jerome Cirrhos is Alcoholic (HCC) 2 Encounter Hepatology Elizabeth Rodriguez.B.B.SLilian Moise [address] [place] [address] [phone] Anesthesia Event Gastroenterology and Rl, 2 Hepatology Ervin Burgos M.D. [address] [place] [phone] Surgery Gastroenterology and Mousa, Mattehw ESOPHAG OGASTRODUODENOSCOPY 2 Hepatology Tyrell Rodriguez M.D. 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 - 12/04/2021 9:57 AM CDT Blanquita [...] yes ?? Complications: no apparent complications ?? Adbullahi Zuniga M.D. PROCEDURE/MINOR SURGICAL ORDERABLES Patient Status [...] LAB BLOOD NON ADD-ON Performing Organization Address City/[facility] Phon e Number [facility] - 200 [place], [place] [address] [place] [address] Laboratories-[address] hCG (Human Chorionic Gonadotropin), Quantitative, (12/04/2021 7:30 AM CDT) P athologist Signature HCG, <0.5 <5 IU/L 12/04/2021 [facility] Quantitative, 7:51 AM CDT , P Specimen Anatomical Collection Method Collection Time Receive d Time (Source) Location / / Volume Laterality Blood (Blood, 12/04/2021 7:30 AM 12/05/19 7:34 Venous) CDT AM CDT Sree Goodman M.D., M.A. LAB BLOOD ADD-ON Performing Organization Address City/[facility] Phon e Number [facility] - [address] [place], [place] [address] [place] [address] Laboratories-[address] (ABNORMAL) Prothrombin Time (PT) (12/04/2021 7:30 AM CDT) Patholo gist Method Time Signature Prothrombin 31.1 (H) 9.4 - 12.5 12/04/2021 [facility] Time, P sec 7:44 AM CDT INR 2.8 0.9 - 1.1 12/04/2021 [facility] Comment: ----ADDITIONAL INFORMATION---- Standard intensity warfarin therapeutic range: 2.0 to 3.0 ?? High intensity warfarin therapeutic rang e: 2.5 to 3.5 Specimen Anatomical Collection Method Collection Time Receive d Time (Source) Location / / Volume Laterality Blood (Blood, 12/04/2021 7:30 AM 12/05/19 7:34 Venous) CDT AM CDT Sree Goodman M.D., M.A. LAB BLOOD ADD-ON Performing Organization Address City/[facility] Phon e Number [facility] - 200 [place], [place] [address] [facility] [place] [address] Lipase (12/04/2021 7:30 AM CDT) P athologist Signature Lipase, S 44 13 - 60 U/L 12/04/2021 8:30 DTL AM CDT Specimen Anatomical Collection Method Collection Time Receive d Time (Source) Location / / Volume Laterality Blood (Blood, 12/04/2021 7:30 AM 12/05/19 8:04 Venous) CDT AM CDT Sree Goodman M.D., M.A. LAB BLOOD ADD-ON Performing Organization Address City/[facility] Phon e Number [facility] - [address] [place] [address] 05 [facility] [place], [place] [address] [place] [address] (ABNORMAL) Hepatic Function Panel (12/04/2021 7:30 AM [...] Volume Laterality Blood (Blood, 12/04/2021 7:30 AM 08/04/20 22 8:04 Venous) CDT AM CDT Sree Goodman M.D., M.A. LAB BLOOD ADD-ON Performing Organization Address City/State/ZIP Code Phon e Number [facility] - 200 [place], [place] [address] [facility] [place] [address] Laboratories-[facility] 200 [facility] (ABNORMAL) CBC with Differential, Blood (12/04/2021 7:30 AM CDT) [facility] gist Method Time Signature Hemoglobin 8.0 [...] City/State/ZIP Code Phon e Number [facility] - [address] [place] [address] [facility] [place] [address] Laboratories-[facility] 200 [facility] (ABNORMAL) Basic Metabolic Panel (12/04/2021 7:30 AM [...] CDT eGFR-Black/Afri >90 >=60 12/04/2021 DTL can Colombian mL/min/BSA 8:53 AM CDT Comment: ----ADDITIONAL INFORMATION---- [...] City/State/ZIP Code Phon e Number [facility] - 200 [place], [place] [address] [facility] [place] [address] Laboratories-[facility] 200 [facility] [place] [address] Laboratories-[facility] 200 [facility] (ABNORMAL) Blood Gas with Coox, Venous (12/04/2021 7:30 AM CDT) [facility] Method Time Signature Venous pO2 36 [...] 7:38 AM CDT Venous Sample Venipunct 12/04[facility]20[facility] 7[facility]38 AM CDT Specimen Anatomical Collection Method Collection Time Receive d Time (Source) Location / / Volume Laterality Blood (Blood, 12/04/2021 7:30 AM 12/05/19 7:34 Venous) CDT AM CDT Sree Goodman M.D., M.A. LAB BLOOD NON ADD-ON Performing Organization Address City/State/ZIP Code Phon e Number [facility] - [address] [place], [place] [address] [facility] [place] [address] Laboratories-[facility] [address] documented in this encounter Visit Diagnoses Diagnosis Ascites - Primary Insomnia Cirrhosis Alcoholic (HCC) Cirrhosis Alcoholic (HCC) Hypertension [...] as of this encounter Care Teams Manager New Product Relationship Specialty Start Date End Date Ana Red P.A.-C. PCP - General Internal Medicine 12/01/[address] [place] [phone] [facility] 08/25/21 Ervin Schroeder MD Referring Provider Family Medicine 03/24/[address] [place] [address] documented as of this encounter
--- OUTSIDE RECORDS SUMMARY | 2022-02-10 09:32 | XMS_ITS | Encounter Summary ---
:1990 Author Organization [facility] Address [address] [place] [address] Care Team Providers Name Role Phone Ana Red P.A.-C. Primary Care Provider [phone] Encounter Details Date Type Department Care Team Description 11/26/2021 [facility] Dena Schroeder tohepatitis Non Alcoholic (Primary Dx); AND CLINICS Ervin Schaefer M.D. Unspecified Cirrhosis Of Liver (HCC) [address], [place] [address] [phone] Social History Tobacco Use Types Packs/Day Years Used Date Smoking Tobacco: Former Cigarettes 05/2009 - 10/20/2021 Smokeless Tobacco: Never Comments: 2-3 cpd since July 27, 2021 Alcohol Use Standard Drinks/Week Comments Not Currently 0 (1 standard drink = 0.6 oz pure alcoho l) Alcohol Habits Answer Date Recorded How often do you have a drink containing alcohol? Never 02/10/2022 How many drinks containing alcohol do you [...] you attend christianity or Patient refused 2021 amish services? 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 1025 [place] [address] 2 Rain Reyes R.N. [address] [place] [address] [phone] Telemedicine Transplant Ashtyn 2 Brigid noyola M.D. [address] [place] [phone] Office Visit Community Internal Neda, Olinda Medicine Vernell Perez 300 [facility] [place] [phone] Lab Laboratory Medicine Karin, 2 Adeline Gannon M.D., Ph.D. [address] [place] [phone] Lab Laboratory Medicine Karin, 2 Adeline Gannon M.D., Ph.D. [address] [place] [address] [phone] Office Visit Transplant Karin, 2 Adeline Gannon M.D., Ph.D. [address] [place] [phone] Appointment Radiology Matthew Jerome 2 Y, M.B.B.SSuma, MJules [address] [place] [address] [phone] Appointment Gastroenterology and [place], 2 Hepatology Yue Burciaga M.D. [address] [place] [phone] Office Visit Gastroenterology and Matthew Jerome 2 Hepatology Jennifer M.B.B.S., MJules [address] [place] [phone] Appointment Radiology Matthew Jerome 2 Y, M.B.B.S., MJules [address] [place] [phone] [facility] Gastroenterology and Matthew Jerome Cirrhos is Alcoholic (HCC) 2 Encounter Hepatology Tyrell Rodriguez M.D. [address] [place] [phone] Anesthesia Event Gastroenterology and Rl, 2 Hepatology Ervin Burgos M.D. [address] [place] [address] [phone] Surgery Gastroenterology and [place], Matthew ESOPHAG OGASTRODUODENOSCOPY 2 Hepatology Tyrell Rodriguez M.D. [address] [place] [phone] Scheduled Procedures Name Priority Associated Diagnoses Date/Time ESOPHAGOGASTRODUODENOSCOPY Cirrhosis Alc oholic (HCC) 03/20/2022 8:45 AM SAP SECURITY ARCHITECT Hypertension Portal (HCC) documented as of this encounter Visit Diagnoses Diagnosis Steatohepatitis Non Alcoholic - Primary Unspecified Cirrhosis Of Liver (HCC) Cirrhosis Alcoholic (HCC) Cirrhosis Alcoholic (HCC) Hypertension Portal (HCC) documented in this encounter Additional Health Concerns Assessment Noted Time PHQ-9 Depression Total Score: 10 10/06/2021 5:00 PM CD T documented as of this encounter Care Teams Middle School Assistant Principal Relationship Specialty Start Date End Date Ana Red P.A.-C. PCP - General Internal Medicine 12/01/[address] [place] [address] [place] [phone] [facility]- [place] lab 08/25/21 Ervin Schroeder MD Referring Provider Family Medicine 03/24/[address] [place] [address] [place] [phone] documented as of this encounter
--- OUTSIDE RECORDS SUMMARY | 2022-02-10 09:32 | XMS_ITS | Encounter Summary ---
:1990 Author Organization [facility] Address [address] [place] [address] Care Team Providers Name Role Phone Ana Red P.A.-C. Primary Care Provider [phone] Reason for Visit Reason Comments [employer]ANK[employer] / Appeal Letter Encounter Details Date Type Department Care Team Description 12/03/2021 Clinical Communication Department [facility], BIANKA / Appeal Letter [facility] Internal Lilian Gee, Medicine in [facility], [address] [place], [place] 300 [facility] [phone] ADI PANIAGUA [phone] (Work) [phone] Social History Tobacco Use Types Packs/Day Years [...] you attend worship or Patient refused 2021 zoroastrianism services? 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 Gerard Andino's 12/03 appeal letter was faxed to [phone], confirmation was received documented in this encounter Plan of Treatment Upcoming Encounters Date Type Specialty Care Team Description Virtual Visit Transplant Matthew Jerome M .B.B.S., M.Slick. [address] [place] [phone] 2 Rain Reyes R.N. [address] [place] [phone] Telemedicine Transplant LinaFederico 2 Brigid noyola M.D. [address] [place] [phone] Office Visit Community Internal [facility], 2 Medicine Vernell Perez 300 [place] [address] Lab Laboratory Medicine Karin, 2 Adelnie Gannon M.D., Ph.D. [address] [place] [phone] Lab Laboratory Medicine Karin, 2 Adeline Gannon M.D., Ph.D. [address] [place] [phone] Office Visit Transplant Karin, 2 Adeline Gannon M.D., Ph.D. [address] [place] [phone] Appointment Radiology Matthew Jerome 2, M.B.B.SSuma, Lilian [address] [place] [phone] Appointment Gastroenterology and Adrianne, 2 Hepatology Yue Burciaga M.D. [address] [place] [phone] Office Visit Gastroenterology and Matthew Jerome 2 Hepatology Y, MLilian Perez [address] [place] [phone] Appointment Radiology [facility] 2 YTyrell M.D. [address] [place] [phone] Hospital Gastroenterology and [facility] Cirrhos is Alcoholic (HCC) 2 Encounter Hepatology Tyrell Rodriguez M.D. [address] [place] [phone] Anesthesia Event Gastroenterology and [facility], 2 Hepatology Ervin Burgos M.D. [address] [place] [address] [phone] Surgery Gastroenterology and [facility] ESOPHAG OGASTRODUODENOSCOPY 2 Hepatology Tyrell Rodriguez M.D. [address] [place] [phone] Scheduled Procedures Name Priority Associated Diagnoses Date/Time ESOPHAGOGASTRODUODENOSCOPY Cirrhosis Alc oholic (HCC) 03/20/2022 8:45 AM TACKING STITCH REMOVER Hypertension Portal (HCC) documented as of this encounter Visit Diagnoses Not on filedocumented in this encounter Additional Health Concerns Assessment Noted Time PHQ-9 Depression Total Score: 10 10/06/2021 5:00 PM CD T documented as of this encounter Care Teams Production Line Solderer Relationship Specialty Start Date End Date Ana Red P.A.-C. PCP - General Internal Medicine 12/01/[address] [place], [place] [address] [address] [facility] [place] lab 08/25/21 Ervin Schroeder MD Referring Provider Family Medicine 11/22/[address] [place] [address] documented as of this encounter
--- OUTSIDE RECORDS SUMMARY | 2022-02-10 09:32 | XMS_ITS | Encounter Summary ---
:1990 Author Organization [facility] Address [address] [place] [address] Care Team Providers Name Role Phone Ana Red P.A.-C. Primary Care Provider [phone] Encounter Details Date Type Department Care Team Description 12/02/2021 Clinical Communication Division of [facility], [facility] Slick Andino, Internal Medicine, Callie., [facility] [address] [place] [address] [place] [phone] [place], [place] [phone] (Work) [phone] Social History Tobacco Use Types Packs/Day Years [...] you attend presybeterian or Patient refused 2021 yazdanism services? 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 [address] [place] [phone] Telemedicine Transplant Ashtyn 2 Brigid noyola M.D. [address] [place] [phone] Office Visit Community Internal Neda, 2 Medicine Vernell Perez 300 [facility] [place] [phone] Lab Laboratory Medicine Karin, 2 Adeline Gannon M.D., Ph.D. [address] [place] [phone] Lab Laboratory Medicine Karin, 2 Adeline Gannon M.D., Ph.D. [address] [place] [phone] Office Visit Transplant Karin, 2 Adeline Gannon M.D., Ph.D. [address] [place] [phone] Appointment Radiology Matthew Jerome 2 Y, M.B.B.SSuma, MJules [address] [place] [phone] Appointment Gastroenterology and Adrianne, 2 Hepatology Yue Burciaga M.D. [address] [place] [phone] Office Visit Gastroenterology and Matthew Jerome 2 Hepatology Jennifer M.B.B.SSuma, MJlues 1025 [place] [address] Appointment Radiology Matthew Jerome 2 Y M.B.B.SSuma, Lilian [address] [place] [address] [phone] Hospital Gastroenterology and Mousa, Matthew Cirrhos is Alcoholic (HCC) 2 Encounter Hepatology Tyrell Rodriguez, Lilian [address] [place] [phone] Anesthesia Event Gastroenterology and Rl, 2 Hepatology Ervin Burgos M.D. 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 PCP - General Internal Medicine 12/01/[address] [place] [address] [place] [phone] [facility]- [place] lab 08/25/21 Ervin Schroeder MD Referring Provider Family Medicine 03/24/[address] [place] [address] [place] [address] documented as of this encounter
--- OUTSIDE RECORDS SUMMARY | 2022-02-10 09:32 | XMS_ITS | Encounter Summary ---
:1990 Author Organization [facility] Address [address] [place] [address] Care Team Providers Name Role Phone Ana Red P.A.-C. Primary Care Provider [phone] Encounter Details Date Type Department Care Team Description 12/02/2021 Clinical Communication Department of Internal [facility] in [facility] [address] [place] [phone] Social History Tobacco Use Types Packs/Day Years [...] How often do you attend buddhism or Patient refused 2021 hoahaoism services? 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 Telephone Encounter - Sunny Arnold D.O. - [...] Transplant Matthew Jerome M .B.B.S., Lilian [address] [place] [address] 2 Rain Reyes R.N. [address] [place] [phone] [facility] 2 Brigid noyola M.D. [address] [place] [phone] Office Visit [facility] Internal [facility], 2 Medicine Vernell Perez 300 [place] [address] Lab Laboratory Medicine Karin, 2 Adeline Gannon M.D., Ph.D. [address] [place] [phone] Lab Laboratory Medicine Karin, 2 Adeline Gannon M.D., Ph.D. [address] [place] [phone] Office Visit Transplant Karin, 2 Adeline Gannon M.D., Ph.D. [address] [place] [phone] Appointment Radiology Matthew Jerome 2 YJoshuaB.B.SSuma, Lilian [address] [place] [phone] Appointment Gastroenterology and Adrianne, 2 Hepatology Yue Burciaga M.D. [address] [place] [phone] [facility] 2 Hepatology Joshua RodriguezB.B.Kath, Lilian [address] [place] [phone] Appointment Radiology Matthew Jerome 2 Y M.B.B.SSuma, Lilian [address] [place] [phone] [facility] Gastroenterology and [facility] Cirrhos is Alcoholic (HCC) 2 Encounter Hepatology Jennifer M.B.B.Lilian [place] [address] [place] [phone] Anesthesia Event Gastroenterology and Rl, 2 Hepatology Ervin Burgos M.D. [address] [place] [phone] Surgery Gastroenterology and Queenie Matthew ESOPHAG OGASTRODUODENOSCOPY 2 Hepatology Jennifer M.B.B.SSuma, Lilian [address] [place] [phone] Scheduled Procedures Name Priority Associated Diagnoses Date/Time ESOPHAGOGASTRODUODENOSCOPY Cirrhosis Alc oholic (HCC) 03/20/2022 8:45 AM COMPLIANCE MANAGER Hypertension Portal (HCC) documented as of this encounter Visit Diagnoses Not on filedocumented in this encounter Additional Health Concerns Assessment Noted Time PHQ-9 Depression Total Score: 10 10/06/2021 5:00 PM CD T documented as of this encounter Care Teams Cost And Risk Analysis Manager Relationship Specialty Start Date End Date Ana Red P.A.-C. PCP - General Internal Medicine 12/01/[address] [place] [phone] [facility]- [place] lab 08/25/21 Ervin Schroeder MD Referring Provider Family Medicine 03/24/[address] [place] [address] documented as of this encounter
--- OUTSIDE RECORDS SUMMARY | 2022-02-10 09:32 | XMS_ITS | Encounter Summary ---
:1990 Author Organization [facility] Address [address] [place] [address] Care Team Providers Name Role Phone Ana Red P.A.-C. Primary Care Provider [phone] Encounter Details Date Type Department Care Team Description 12/04/2021 Clinical Communication Division of [place], Gastroenterology in Elizabeth Echevarria [place], [place] [address] [facility] [address] [place] [phone] Social History Tobacco Use Types Packs/Day Years [...] you attend hindu or Patient refused 2021 zoroastrian services? 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 10[address] [place] [address] 2 Rain Reyes R.N. [address] [place] [address] [phone] Telemedicine Transplant Ashtyn 2 Brigid noyola M.D. [address] [place] [phone] Office Visit Community Internal Neda, 2 Medicine Vernell Perez 300 [facility] [place] [phone] Lab Laboratory Medicine Karin, 2 Adeline Gannon M.D., Ph.D. [address] [place] [phone] Lab Laboratory Medicine Karin, 2 Adeline Gannon M.D., Ph.D. [address] [place] [phone] Office Visit Transplant Karin, 2 Adeline Gannon M.D., Ph.D. [address] [place] [phone] Appointment Radiology Matthew Jerome 2 Y, M.B.B.SSuma, MJules [address] [place] [address] [phone] Appointment Gastroenterology and Adrianne, 2 Hepatology Yue Burciaga M.D. [address] [place] [phone] Office Visit Gastroenterology and Matthew Jerome 2 Hepatology Jennifer M.B.B.SSuma, MJules [address] [place] [phone] Appointment Radiology Matthew Jerome 2 Y M.B.B.SSuma, MJules [address] [place] [phone] [facility] Gastroenterology and Mousa, Matthew Cirrhos is Alcoholic (HCC) 2 Encounter Hepatology Tyrell Rodriguez M.D. [address] [place] [address] [phone] Anesthesia Event Gastroenterology and Rl, 2 Hepatology Ervin Burgos M.D. [address] [place] [address] [phone] Surgery Gastroenterology and Mousa, Matthew ESOPHAG OGASTRODUODENOSCOPY 2 Hepatology Tyrell Rodriguez M.D. [address] [place] [phone] Scheduled Procedures Name Priority Associated Diagnoses Date/Time ESOPHAGOGASTRODUODENOSCOPY Cirrhosis Alc oholic (HCC) 03/20/2022 8:45 AM INFORMATION SYSTEMS CONSULTANT Hypertension Portal (HCC) documented as of this encounter Visit Diagnoses Not on filedocumented in this encounter Additional Health Concerns Assessment Noted Time PHQ-9 Depression Total Score: 10 10/06/2021 5:00 PM CD T documented as of this encounter Care Teams Edge Polisher Relationship Specialty Start Date End Date Ana Red P.A.-C. PCP - General Internal Medicine 12/01/[address] [place] [phone] [facility]- [place] lab 08/25/21 Ervin Schroeder MD Referring Provider Family Medicine 03/24/[address] [place] [address] [place] [address] documented as of this encounter
--- OUTSIDE RECORDS SUMMARY | 2022-02-10 09:32 | XMS_ITS | Encounter Summary ---
:1990 Author Organization [facility] Address [address] [place] [address] Care Team Providers Name Role Phone Ana Red P.A.-C. Primary Care Provider [phone] Encounter Details Date Type Department Care Team Description 11/26/2021 Clinical Communication Division of Luly Bentley, [facility] [address] [place] [address] [place] [phone] [place], [place] [phone] (Work) [phone] Social History Tobacco Use Types Packs/Day Years [...] you attend christianity or Patient refused 2021 muslim services? 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 1025 [place] [address] 2 Rain Reyes R.N. [address] [place] [address] [phone] Telemedicine Transplant Ashtyn 2 Brigid noyola M.D. [address] [place] [address] [phone] Office Visit Community Internal Neda, 2 Solitario Perez P.A.-C. [address] [place] [address] Lab Laboratory Medicine Olinda Frazier M.D., Ph.D. [address] [place] [phone] Lab Laboratory Medicine Olinda Frazier M.D., Ph.D. [address] [place] [phone] Office Visit Transplant Karin, Olinda Gannon M.D., Ph.D. [address] [place] [phone] Appointment Radiology Matthew Jerome 2 YJoshuaBSumaB.Kath, Lilian [address] [place] [phone] Appointment Gastroenterology and Adrianne, 2 Hepatology Yue Burciaga M.D. [address] [place] [phone] Office Visit Gastroenterology and Matthew Jerome 2 Hepatology Joshua RodriguezB.B.SLilian Moise [address] [place] [phone] Appointment Radiology Matthew Jerome 2 Joshua RodriguezB.B.SLilian Moise [address] [place] [phone] Hospital Gastroenterology and Matthew Jerome Cirrhos is Alcoholic (HCC) 2 Encounter Hepatology Y, Lilian Santillan [address] [place] [phone] Anesthesia Event Gastroenterology and Rl, 2 Hepatology Ervin Burgos M.D. 10[address] [place] [phone] Surgery Gastroenterology and Mousa, Matthew ESOPHAG OGASTRODUODENOSCOPY 2 Hepatology Tyrell Rodriguez M.D. [address] [place] [phone] Scheduled Procedures Name Priority Associated Diagnoses Date/Time ESOPHAGOGASTRODUODENOSCOPY Cirrhosis Alc oholic (HCC) 03/20/2022 8:45 AM LIVING ADVISOR Hypertension Portal (HCC) documented as of this [...] CDT eGFR-Black/Afri >90 >=60 12/02/2021 [place] can [place] mL/min/BSA 6:46 PM CDT Comment: ----ADDITIONAL INFORMATION---- [...] City/State/ZIP Code Phon e Number [facility]- [address] [place] [address] [place] [address] System in [place] [address] documented in this encounter Visit Diagnoses Diagnosis Change Mental Status - Primary Cirrhosis Alcoholic (HCC) Cirrhosis Alcoholic (HCC) Hypertension Portal (HCC) documented in this encounter Additional Health Concerns Assessment Noted Time PHQ-9 Depression Total Score: 10 10/06/2021 5:00 PM CD T documented as of this encounter Care Teams Supervisor Tower Relationship Specialty Start Date End Date Ana Red P.A.-C. PCP - General Internal Medicine 12/01/[address] [place] [address] [place] [address] [facility]- [place] lab 08/25/21 Ervin Schroeder MD Referring Provider Family Medicine 03/24/211979 30[facility] [place] [address] documented as of this encounter
--- OUTSIDE RECORDS SUMMARY | 2022-02-10 09:32 | XMS_ITS | Encounter Summary ---
:1990 Author Organization [facility] Address [address] [place] [address] Care Team Providers Name Role Phone Ana Red P.A.-C. Primary Care Provider Reason for Referral Specialty Diagnoses / Procedures Referred By Contact Refer red To Contact Ana Red P .A.-C. [facility] Region [address] [place] [address] Referral ID Status Reason Start Date Expiration Date Visits Requ ested Visits Authorized Encounter Details Date Type Department Care Team Description 12/03/2021 Orders Only [facility] Ana Red P.A.-C. [address] [place], [place] [phone] (Wo rk) Social History [...] How often do you attend yazdanism or Patient refused 2021 episcopal services? 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 [address] [place] [address] 2 Rain Reyes R.N. [address] [place] [phone] Telemedicine Transplant Ashtyn 2 Brigid noyola M.D. [address] [place] [phone] Office Visit Community Internal Deanovic, 2 Medicine Vernell Perez [address] [place] [phone] Lab Laboratory Medicine Karin, 2 Adeline Gannon M.D., Ph.D. [address] [place] [phone] Lab Laboratory Medicine Karin, 2 Adeline Gannon M.D., Ph.D. [address] [place] [phone] Office Visit Transplant Karin, 2 Adeline Gannon M.D., Ph.D. [address] [place] [phone] Appointment Radiology Matthew Jerome 2 M.B.B.SSuma, Lilian [address] [place] [phone] Appointment Gastroenterology and Adrianne, 2 Hepatology Yue Burciaga M.D. [address] [place] [phone] Office Visit Gastroenterology and Matthew Jerome 2 Hepatology Joshua RodriguezB.B.SLilian Moise [address] [place] [phone] Appointment Radiology LuisNew abdular 2 YTyrell M.D. [address] [place] [phone] Hospital Gastroenterology and Matthew Jerome Cirrhos is Alcoholic (HCC) 2 Encounter Hepatology Tyrell Rodriguez M.D. [address] [place] [phone] Anesthesia Event Gastroenterology and Rl, 2 Hepatology Ervin Burgos M.D. [address] [place] [phone] Surgery Gastroenterology and Matthew Jerome ESOPHAG OGASTRODUODENOSCOPY 2 Hepatology Tyrell Rodriguez M.D. [address] [place] [phone] Scheduled Procedures Name Priority Associated Diagnoses Date/Time ESOPHAGOGASTRODUODENOSCOPY Cirrhosis Alc oholic (HCC) 03/20/2022 8:45 AM MANAGER STATISTICS Hypertension Portal (HCC) Scheduled Referrals Name Type Priority Associated Order Schedule Diagnoses Covid immunization Outpatient Referral Routine Ex pected: office visit 12/03/2021 Immuno/Booster (Approximate) , Expires: 12/03/2022 documented as of this encounter Visit Diagnoses Not on filedocumented in this encounter Additional Health Concerns Assessment Noted Time PHQ-9 Depression Total Score: 10 10/06/2021 5:00 PM CD T documented as of this encounter Care Teams Hospital Receiving Clerk Relationship Specialty Start Date End Date Ana Red P.A.-C. PCP - General Internal Medicine 12/01/[address] [place] [address] Sadia BAYADI WRIGHT [phone] [facility]- [facility] 08/25/21 Ervin Schroeder MD Referring Provider Family Medicine 03/24/[address] [place], [place] [phone] documented as of this encounter
--- OUTSIDE RECORDS SUMMARY | 2022-02-10 09:32 | XMS_ITS | Encounter Summary ---
:1990 Author Organization [facility] Address [address] [place] [address] Care Team Providers Name Role Phone Ana RedCSuma Primary Care Provider Reason for Referral Outpatient (Routine) - Authorized Specialty Diagnoses / Procedures Referred By Contact Refer red To Contact [facility] Internal Ana Red [facility] P.Ana[facility] [address] [facility] [place] [address] Referral ID Status Reason Start Date Expiration Date Visits V isits Requested Authorized [id number] Authorized 12/02/2021 12/02/2022 1 1 Encounter Details Date Type Department Care Team Description 12/02/2021 Orders Only [facility] SEMN PCP TH MNT Ana Red P.A.-C. [address] [facility] [place] [phone] (Wo rk) Social History [...] you attend jainism or Patient refused 2021 jainism services? 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 [address] [place] [address] 2 Rain Reyes R.N. [address] [place] [phone] Telemedicine Transplant LinaFederico 2 Brigid noyola M.D. [address] [place] [phone] Office Visit Community Internal [facility], 2 Medicine Vernell Perez [address] [place] [phone] Lab Laboratory Medicine Karin, 2 Adeline Gannon M.D., Ph.D. [address] [place] [phone] Lab Laboratory Medicine Karin, 2 Adeline Gannon M.D., Ph.D. [address] [place] [phone] Office Visit Transplant Karin, 2 Adeline Gannon M.D., Ph.D. [address] [place] [phone] Appointment Radiology Matthew Jerome 2, M.B.B.S., MJules [address] [place] [address] Appointment Gastroenterology and Adrianne, 2 Hepatology Yue Burciaga M.D. [address] [place] [phone] Office Visit Gastroenterology and Matthew Jerome 2 Hepatology Tyrell Rodriguez M.D. [address] [place] [phone] Appointment Radiology Matthew Jerome 2 YTyrell M.D. [address] [place] [phone] Hospital Gastroenterology and Matthew Jerome Cirrhos is Alcoholic (HCC) 2 Encounter Hepatology Tyrell Rodriguez M.D. [address] [place] [phone] Anesthesia Event Gastroenterology and Rl, 2 Hepatology Ervin Burgos M.D. [address] [place] [phone] Surgery Gastroenterology and Matthew Jerome ESOPHAG OGASTRODUODENOSCOPY 2 Hepatology Tyrell Rodriguez M.D. [address] [place] [phone] Scheduled Procedures Name Priority Associated Diagnoses Date/Time ESOPHAGOGASTRODUODENOSCOPY Cirrhosis Alc oholic (HCC) 03/20/2022 8:45 AM DAIRY INSPECTOR Hypertension Portal (HCC) Scheduled Referrals Name Type Priority Associated Diagnoses Order S [facility] Internal Outpatient Referral Routine Ex pected: Medicine office 12/16/2021, visit (clinic) Expires: 05/31/2022 documented as of this encounter Visit Diagnoses Not on filedocumented in this encounter Additional Health Concerns Assessment Noted Time PHQ-9 Depression Total Score: 10 10/06/2021 5:00 PM CD T documented as of this encounter Care Teams Residential Appraiser Relationship Specialty Start Date End Date Ana Red P.A.-C. PCP - General Internal Medicine 12/01/[address] [place] [address] ADI Chua [phone] [facility]- [facility] 08/25/21 Ervin Schroeder MD Referring Provider Family Medicine 03/24/[address] [place] [phone] documented as of this encounter
--- OUTSIDE RECORDS SUMMARY | 2022-02-10 09:32 | XMS_ITS | Encounter Summary ---
:1990 Author Organization [facility] Address [address] [place] [address] Care Team Providers Name Role Phone Elsewhere, Pcp Primary Care Provider Unavailable Encounter Details Date Type Department Care Team Description 11/27/2021 Orders Only Division [facility] Gerard Andino M.D ., Internal Medicine, [facility], in [place], [facility] [address] [place], [place] [address] [facility] [phone] [place] [address] [phone] Social History Tobacco Use Types Packs/Day Years [...] you attend advent or Patient refused 2021 jewish services? 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 [address] [place] [phone] Telemedicine Transplant Ashtyn 2 Brigid noyola M.D. [address] [place] [address] [phone] Office Visit Community Internal Neda, 2 Solitario Perez P.A.-C. [address] [place] [phone] Lab Laboratory Medicine Olinda Frazier M.D., Ph.D. [address] [place] [phone] Lab Laboratory Medicine Olinda Frazier M.D., Ph.D. [address] [place] [phone] Office Visit Transplant Karin, Olinda Gannon M.D., Ph.D. [address] [place] [phone] Appointment Radiology Matthew Jerome 2 YJoshuaBSumaBLilian Bedolla [address] [place] [phone] Appointment Gastroenterology and Adrianne, 2 Hepatology Yue Burciaga M.D. [address] [place] [phone] Office Visit Gastroenterology and [facility] 2 Hepatology Joshua RodriguezBSumaBLilian Bedolla [address] [place] [phone] Appointment Radiology Matthew Jerome 2 Elizabeth Rodriguez.B.B.Lilian Stockton [address] [place] [phone] [facility] Cirrhos is Alcoholic (HCC) 2 Encounter Hepatology Joshua RodriguezBSumaBLilian Bedolla [address] [place] [phone] Anesthesia Event Gastroenterology and Rl, 2 Hepatology Ervin Burgos M.D. [address] [place] [phone] Surgery Gastroenterology and Mousa, Matthew ESOPHAG OGASTRODUODENOSCOPY 2 Hepatology Tyrell Rodriguez M.D. [address] [place] [address] [phone] Scheduled Procedures Name Priority Associated Diagnoses Date/Time ESOPHAGOGASTRODUODENOSCOPY Cirrhosis Alc oholic (HCC) 03/20/2022 8:45 AM PATIENT SAFETY SITTER Hypertension Portal (HCC) documented as of this encounter Visit Diagnoses Not on filedocumented in this encounter Additional Health Concerns Assessment Noted Time PHQ-9 Depression Total Score: 10 10/06/2021 5:00 PM CD T documented as of this encounter Care Teams [employer] Relationship Specialty Start Date End Date Elsewhere, Pcp PCP - General Family Medicine 03/10/20 11/30/21 [facility] [place] lab 08/25/21 Ervin Schroeder MD Referring Provider Family Medicine 03/24/[address] [place] [phone] documented as of this encounter
--- OUTSIDE RECORDS SUMMARY | 2022-02-10 09:32 | XMS_ITS | Encounter Summary ---
:1990 Author Organization [facility] Address [address] [place] [address] Care Team Providers Name Role Phone Ana Red P.A.-C. Primary Care Provider [phone] Encounter Details Date Type Department Care Team Description 12/04/2021 Documentation Division of Gastroenterology Concepción Morelos, in [facility] pedro Quintana [address] [facility] [address] [place] [address] [place], [place] [phone] (Wo rk) Social History Tobacco Use Types [...] you attend taoist or Patient refused 2021 roman catholic services? 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 - 12/04/2021 12:44 AM CDT GI fellow shelter monitor Catia Carias is a 31 y.o. female [...] is most comfortable having this done at [place]. She denies n/v, confusion, melena, hematochezia, or [...] would like to receive her care at [place]. She is planning to come to the [...] today and willing to come back to [place] (lives about 40 min away). I am working with Kain to get her in for an outpatient para and have forwarded my note to Dr. Jerome as well. Nabila Morelos M.D. Gastroenterology Fellow documented in this encounter Plan of Treatment Upcoming Encounters Date Type Specialty Care Team Description Virtual Visit Transplant Matthew Jerome M .B.B.S., MJules [address] [place] [address] 2 Rain Reyes, RSumaNSuma [address] [place] [phone] Telemedicine Transplant LinaFederico 2 Brigid noyola M.D. [address] [place] [phone] Office Visit [facility] Internal [facility], 2 Solitario Perez P.A.-C. [address] [place] [address] Lab Laboratory Medicine Olinda Frazier M.D., Ph.D. [address] [place] [phone] Lab Laboratory Medicine Olinda Frazier M.D., Ph.D. [address] [place] [address] [phone] Office Visit Transplant Karin, 2 Adeline Gannon M.D., Ph.D. [address] [place] [address] [phone] Appointment Radiology Matthew Jerome 2 Y M.B.B.SSuma, Lilian [address] [place] [phone] Appointment Gastroenterology demian Silver, 2 Hepatology Yue Burciaga M.D. [address] [place] [address] [phone] Office Visit Gastroenterology and Matthew Jerome 2 Hepatology Jennifer M.B.B.SLilian Moise [address] [place] [phone] Appointment Radiology Matthew Jerome 2 Y M.B.B.SLilian Moise [address] [place] [phone] Hospital Gastroenterology and Matthew Jerome Cirrhos is Alcoholic (HCC) 2 Encounter Hepatology Jennifer M.B.B.SSuma, Lilian [address] [place] [phone] Anesthesia Event Gastroenterology and Rl, 2 Hepatology Ervin Burgos M.D. [address] [place] [address] [phone] Surgery Gastroenterology and Mousa, Matthew ESOPHAG OGASTRODUODENOSCOPY 2 Hepatology Tyrell Rodriguez M.D. [address] [place] [phone] Scheduled Procedures Name Priority Associated Diagnoses Date/Time ESOPHAGOGASTRODUODENOSCOPY Cirrhosis Alc oholic (HCC) 03/20/2022 8:45 AM AGING ROOM HAND Hypertension Portal (HCC) documented as of this encounter Visit Diagnoses Not on filedocumented in this encounter Additional Health Concerns Assessment Noted Time PHQ-9 Depression Total Score: 10 10/06/2021 5:00 PM CD T documented as of this encounter Care Teams Junior Sales Representative Relationship Specialty Start Date End Date Ana Red P.A.-C. PCP - General Internal Medicine 12/01/[address] [place] [phone] [facility]- [place] [facility] 08/25/21 Ervin Schroeder MD Referring Provider Family Medicine 03/24/[address] [place] [phone] documented as of this encounter
--- OUTSIDE RECORDS SUMMARY | 2022-02-10 09:32 | XMS_ITS | Encounter Summary ---
:[address] [facility] Address [address] [place] [address] Care Team Providers Name Role Phone Ana Red P.A.-C. Primary Care Provider Reason for Referral Outpatient (Routine) - Pending Review Specialty Diagnoses / Procedures Referred By Contact Refer red To Contact Sleep Medicine Diagnoses Insomnia [facility] [address] [place] [phone] Referral ID Status Reason Start Expiration Visits Visits Date Date Requested Authorized [id number] Pending Specialty 12/02/2021 12/02/2022 1 1 Review Services Required Scheduling Instructions Schedule stat since her study was cancel led twice Outpatient (Routine) - Closed Specialty Diagnoses / Procedures Referred By Contact Tabatha lamar To Contact Community Internal JESSE Arnold ADI R egion Medicine Jeri CorreaOSuma [address] [address] Referral ID Status Reason Start Date Expiration Date Visits Requ ested Visits Authorized [id number] Closed 12/02/2021 12/02/2022 1 1 Scheduling Instructions Schedule with ana her PCP . Zurdo jules up on liver cirrhosis , and hepatic encephalopathy Outpatient (Routine) - Authorized Specialty Diagnoses / Procedures Referred By Contact Refer brianda To Contact Diagnoses Alcoholic Cirrhosis Of Liver Without Ascites (HCC) Ascites Chronic Sunny Arnold [facility] Region Procedures US Abdomen Complete D.O. 2[address] [place] [phone] Referral ID Status Reason Start Date Expiration Date Visits V isits Requested Authorized [id number] Authorized 12/02/2021 12/02/2022 1 1 Reason for Visit Reason Comments Post Hospital Follow-up TCM post [facility] stay with discharge on 11/26/2021 Appointment Request (Routine) - Closed Specialty Diagnoses / Procedures Referred By Contact Refer brianda To Contact Community Internal Medicine Referral ID Status Reason Start Date Expiration Date Visits Requ ested Visits Authorized [id number] Closed 12/01/2021 12/01/2022 1 1 Encounter Details Date Type Department Care Team Description 12/02/2021 Office Visit Department of Internal Silvano Arnold cutluzma And Subacute Hepatic Failure Without Coma (HCC) (Primary Dx); Medicine in [place] D.O . Pancreatitis Chronic (HCC); [place] [address] [facility] Use Of Opiate Analgesic; [address] [place], [place] Alcohol Use Unspecified With Unspecified Alcohol Induced Disorder (HCC); [place] [address] Alcoholic Cirrhosis Of Liver Without Asc ites (HCC); [phone] Ascites Chronic; Insomnia; [phone] High Risk Medic ation (Fax) Social History [...] How often do you attend christian or Patient refused 2021 samaritan services? 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 [address] [place] [phone] 2 Rain Reyes R.N. [address] [place] [phone] Telemedicine Transplant LinaFederico 2 Brigid noyola M.D. [address] [place] [phone] Office Visit Community Internal Neda, 2 Solitario Perez P.A.-C. [address] [place] [phone] Lab Laboratory Medicine Karin Olinda Gannon M.D., Ph.D. [address] [place] [phone] Lab Laboratory Medicine SaraOlinda rondon Adeline Gannon M.D., Ph.D. [address] [place] [phone] Office Visit Transplant Karin, Olinda Adeline Gannon M.D., Ph.D. [address] [place] [address] [phone] Appointment Radiology Matthew Jerome 2 Y M.B.B.SSuma, Lilian [address] [place] [phone] Appointment Gastroenterology and Adrianne, 2 Hepatology Yue Burciaga M.D. [address] [place] [address] [phone] Office Visit Gastroenterology and Matthew Jerome 2 Hepatology Jennifer M.B.B.SSuma, Lilian [address] [place] [phone] Appointment Radiology Matthew Jerome 2 Y M.B.B.SSuma, Lilian [address] [place] [phone] Hospital Gastroenterology and Matthew Jerome Cirrhos is Alcoholic (HCC) 2 Encounter Hepatology Jennifer M.B.B.SSuma, Lilian [address] [place] [phone] Anesthesia Event Gastroenterology and Rl, 2 Hepatology Ervin Burgos M.D. [address] [place] [phone] Surgery Gastroenterology and Mousa, Matthew ESOPHAG OGASTRODUODENOSCOPY 2 Hepatology Tyrell Rodriguez M.D. [address] [place] [phone] Scheduled Orders Name Type Priority Associated Diagnoses Order S [facility] US Abdomen Complete Imaging RAD - Routine (most Alcoholic Cirr hosis Expected: inpatients and all Of Liver Without 12/02 outpatients) Ascites (HCC) (Approximate), Ascites Chronic Expires: 03/04/2023 Basic Metabolic Lab Routine High Risk Medication Expe cted: Panel 12/02/2021 (Approximate), Expires: 03/04/2023 Scheduled Procedures Name Priority Associated Diagnoses Date/Time ESOPHAGOGASTRODUODENOSCOPY Cirrhosis Alc oholic (HCC) 03/20/2022 8:45 AM HADOOP ENGINEER Hypertension Portal (HCC) Scheduled Referrals Name Type Priority Associated Diagnoses Order S [facility] Internal Outpatient Referral Routine Ex pected: Medicine office 12/16/2021 visit (clinic) (Approximate) , Expires: 03/04/2023 Sleep Medicine - Outpatient Referral Routine Insomnia Expe cted: General consult 12/02/2021 (clinic) (Approximate), Expires: 03/04/2023 documented as of this encounter Visit Diagnoses Diagnosis Acute And Subacute Hepatic Failure Witho ut Coma (HCC) - Primary Pancreatitis Chronic (HCC) Ostrich Farmer Use Of Opiate Analgesic Alcohol Use Unspecified With Unspecified Alcohol Induced Disorder (HCC) Alcoholic Cirrhosis Of Liver Without Asc ites (HCC) Ascites Chronic Insomnia High Risk Medication Cirrhosis Alcoholic (HCC) Cirrhosis Alcoholic (HCC) Hypertension Portal (HCC) documented in this encounter Additional Health Concerns Assessment Noted Time PHQ-9 Depression Total Score: 10 10/06/2021 5:00 PM CD T documented as of this encounter Care Teams Joint Special Operations Relationship Specialty Start Date End Date Ana Red P.A.-C. PCP - General Internal Medicine 12/01/21 [address] [phone] [facility] 08/25/21 Ervin Schroeder MD Referring Provider Family Medicine 03/24/[address] [place] [address] ADI Mejía [phone] documented as of this encounter
--- OUTSIDE RECORDS SUMMARY | 2022-02-10 09:32 | XMS_ITS | Encounter Summary ---
:1990 Author Organization [facility] Address [address] [place] [address] Care Team Providers Name Role Phone Ana Red P.A.-C. Primary Care Provider [phone] Encounter Details Date Type Department Care Team Description 12/02/2021 Clinical Communication Pharmacy Prior Auth Ronald smith Jasmynebrant JUAREZ [phone] Social History Tobacco Use Types Packs/Day Years [...] you attend [employer] or Patient refused 2021 episcopal services? 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 [address] [place] [address] [phone] Telemedicine Transplant LinaFederico 2 Brigid noyola M.D. [address] [place] [phone] Office Visit [facility], 2 Medicine Vernell Perez [address] [place] [address] Lab Laboratory Medicine Karin, 2 Adeline Gannon M.D., Ph.D. [address] [place] [phone] Lab Laboratory Medicine Olinda Frazier M.D., Ph.D. [address] [place] [phone] Office Visit Transplant Olinda Frazier M.D., Ph.D. [address] [place] [phone] Appointment Radiology Matthew Jerome 2, M.B.B.S., MJules [address] [place] [phone] Appointment Gastroenterology and Adrianne, 2 Hepatology Yue Burciaga M.D. [address] [place] [phone] Office Visit Gastroenterology and Matthew Jerome 2 Hepatology Tyrell Rodriguez M.D. [address] [place] [phone] Appointment Radiology Matthew Jerome 2 Tyrell Rodriguez M.D. [address] [place] [phone] [facility] Gastroenterology and Matthew Jerome Cirrhos is Alcoholic (HCC) 2 Encounter Hepatology Tyrell Rodriguez M.D. [address] [place] [phone] Anesthesia Event Gastroenterology and Rl 2 Hepatology Ervin Burgos M.D. [address] [place] [address] [phone] Surgery Gastroenterology and Matthew Jerome ESOPHAG OGASTRODUODENOSCOPY 2 Hepatology Tyrell Rodriguez M.D. 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 PCP - General Internal Medicine 12/01/[address] [place] [phone] [facility] [place] [facility] 08/25/21 Ervin Schroeder MD Referring Provider Family Medicine 03/24/[address] [place] [phone] documented as of this encounter
--- OUTSIDE RECORDS SUMMARY | 2022-02-10 09:32 | XMS_ITS | Encounter Summary ---
:1990 Author Organization [facility] Address [address] [place] [address] Care Team Providers Name Role Phone Ana Red P.A.-C. Primary Care Provider [phone] Encounter Details Date Type Department Care Team Description 11/26/2021 Clinical Communication [facility], Gastroenterology in M.BJhoan, Joshua Kruger[address] [place] [address] [phone] Social History Tobacco Use Types Packs/Day Years [...] How often do you attend moravian or Patient refused 2021 tenriism services? Do you belong to any clubs or No 02/10/2022 organizations such as moravian groups, unions, [employer] or athletic groups, or school groups? 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 [address] [place] [address] [phone] Telemedicine Transplant Ashtyn 2 Brigid noyola M.D. [address] [place] [address] [phone] Office Visit [facility] Internal [facility], 2 Medicine Vernell Perez [address] [facility] [place] [phone] Lab Laboratory Medicine Olinda Frazier M.D., Ph.D. [address] [place] [phone] Lab Laboratory Medicine Karin, Olinda Gannon M.D., Ph.D. [address] [place] [phone] Office Visit Transplant Karin, Olinda Ganonn M.D., Ph.D. [address] [place] [phone] Appointment Radiology Matthew Jerome 2 YVikBSumaSSuma, Lilian [address] [place] [phone] Appointment Gastroenterology and Adrianne, 2 Hepatology Yue Burciaga M.D. [address] [place] [phone] Office Visit Gastroenterology and Matthew Jerome 2 Hepatology Joshua RodriguezBSumaB.SLilian Moise [address] [place] [phone] Appointment Radiology Matthew Jerome 2 Joshua RodriguezB.B.SLilian Moise [address] [place] [phone] Hospital Gastroenterology and Matthew Jerome Cirrhos is Alcoholic (HCC) 2 Encounter Hepatology Tyrell Rodriguez, Lilian [address] [place] [phone] Anesthesia Event Gastroenterology and Rl, 2 Hepatology Ervin Burgos M.D. [address] [place] [address] [phone] Surgery Gastroenterology and Mousa, Matthew ESOPHAG OGASTRODUODENOSCOPY 2 Hepatology Tyrell Rodriguez M.D. 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 PCP - General Internal Medicine 12/01/[address] [place] [phone] [facility]- [place] [facility] 08/25/21 Ervin Schroeder MD Referring Provider Family Medicine 03/24/[address] [place] [phone] documented as of this encounter
--- OUTSIDE RECORDS SUMMARY | 2022-02-10 09:33 | XMS_ITS | Encounter Summary ---
:1990 Author Organization [facility] Address [address] [place] [address] Care Team Providers Name Role Phone Elsewhere, Pcp Primary Care Provider Unavailable Encounter Details Date Type Department Care Team Description 11/18/2021 Clinical Communication [facility] PRE/POS T Alina Carranza R, [address] [place] [address] [phone] Social History Tobacco Use Types Packs/Day Years [...] you attend buddhism or Patient refused 2021 baptism services? 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 - 11/18/2021 8:[address] Jerome Catia is scheduled for an EGD with you on 11/24/21. She tested positive for covid on 11/09/21. Also, she is currently an inpatient in [place]. If you have concerns, please notify patient andscheduling. Thank you. documented in this encounter Plan of Treatment Upcoming Encounters Date Type Specialty Care Team Description Virtual Visit Transplant Matthew Jerome M .B.B.S., M.Slick. [address] [place] [address] 2 Rain Reyes R.N. [address] [place] [phone] Telemedicine Transplant LinaFederico 2 Brigid noyola M.D. [address] [place] [phone] Office Visit Community Internal Melanienovic, 2 Medicine Vernell Perez [address] [place] [phone] Lab Laboratory Medicine Karin, 2 Adeline Gannon M.D., Ph.D. [address] [place] [phone] Lab Laboratory Medicine Karin, 2 Adeline Gannon M.D., Ph.D. [address] [place] [phone] Office Visit Transplant Karin, 2 Adeline Gannon M.D., Ph.D. [address] [place] [phone] Appointment Radiology Matthew Jerome 2, M.B.B.Lilian [place] [address] [place] [phone] Appointment Gastroenterology and Adrianne, 2 Hepatology Yue Burciaga M.D. [address] [place] [phone] Office Visit Gastroenterology and Matthew Jerome 2 Hepatology Joshua RodriguezB.B.SLilian Moise [address] [place] [phone] Appointment Radiology Matthew Jerome 2 YTyrell M.D. [address] [place] [address] [phone] Hospital Gastroenterology and Matthew Jerome Cirrhos is Alcoholic (HCC) 2 Encounter Hepatology Tyrell Rodriguez M.D. [address] [place] [phone] Anesthesia Event Gastroenterology and Rl, 2 Hepatology Ervin Burgos M.D. [address] [place] [address] [phone] [facility] G[facility]ODENOSCOPY 2 Hepatology Tyrell Rodriguez M.D. 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
--- OUTSIDE RECORDS SUMMARY | 2022-02-10 09:33 | XMS_ITS | Encounter Summary ---
:1990 Author Organization [facility] Address [address] [place] [address] Care Team Providers Name Role Phone Elsewhere, Pcp Primary Care Provider Unavailable Reason for Referral Outpatient (Routine) - Authorized Specialty Diagnoses / Procedures Referred By Contact Refer red To Contact Diagnoses Cirrhosis Alcoholic (HCC) Gerard Andino M.D., M.S. [address] [place] [address] Referral ID Status Reason Start Date Expiration Date Visits V isits Requested Authorized [id number] Authorized 11/26/2021 11/26/2022 1 1 Medication Prior Authorization - Denied Specialty Diagnoses / Procedures Referred By Contact Refer red To Contact Gerard Andino M.D. , M.S. [address] [place] [phone] Referral ID Status Reason Start Date Expiration Date Visits Requ ested Visits Authorized [id number] Denied 1 1 Reason for Visit Reason Comments Altered Mental Status Auth/Cert Specialty Diagnoses / Procedures Referred By Contact Refer red To Contact Diagnoses Change Mental Status Malaise (Concern For Covid-19) Encephalopathy Procedures ETU Referral ID Status Reason Start Date Expiration Date Visits Requ ested Visits Authorized [id number] 1 1 Encounter Details Date Type Department Care Team Description 11/12/2021 - [facility] Rosaura Sevilla M.D., M.P.H. [address] [place] [phone] Encephalopathy (Primary Dx); [facility] [address] [place] [address] Change Mental Status; [facility] Jody Aguilar M.B., B.Chir. [address] [place] [phone] Malaise (Concern For Covid-19); [facility] ([facility]) [facility], Third Floor [address] [place] [phone] Social History Tobacco Use Types Packs/Day Years [...] How often do you attend pentecostal or Patient refused 2021 methodist services? Do you belong to any clubs or No 02/10/2022 organizations such as pentecostal groups, unions, fraternal [...] or the highest technical, or vocational p [employer]MT ([employer])ram degree you have received? 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 Primary Care [...] DISCHARGE RECOMMENDATIONS - recommend establishing care with [facility] PCP to centralize care FOR PCP - [...] Nicotine Dependence 11/28/2021 1:30 PM LAB 01 [facility] Laboratory Medicine 01/21/2022 12:15 PM Matthew Jerome [...] She was transferred via EMS to the [facility] Emergency Department. On arrival she was [...] CDT You were discharged from the [facility] Gastroenterology A Service. Please identify this service name if you call with questions after hospitalization. AttachmentsThe following attachments cannot be sent through Care Everywhere. Diclofenac (On the skin) (Andorran)Lidocaine Patch (On the skin) (Andorran) Sulfamethoxazole/Trimethoprim (By mouth) ([place]orran)documented in this encounter Medications at Time of [...] of this encounter Progress Notes Shivani Mendez L.I.C.SAgnes., M.S.W. - 11/26/2021 12:42 PM CDT SUBJECTIVE Social work completed reconnect to patient's home health care. OBJECTIVE Patient is hospitalized on DO3D. ASSESSMENT / PLAN ASSESSMENT Patient was not assessed. PLAN Patient to discharge with home health care. Home Medical Care - Home Health Care Name: [facility] Office Contact: Nurse How do we reach your agency on a weekend/holiday? [phone] ( FYI unavailable to re-start services on [...] directive. PRIMARY SERVICE: - Please provide a non-[facility] home health order for: detention care, medication management in the After Visit [...] and minimize these if possible in the senior care. We have discontinued gabapentin and also her [...] Magic Cup supplements available. Danie albright requested screenplay writer order her some apple slices and [...] -13 kg Estimated Needs: Total Calorie Needs: 7820-3463 calories/day Method to Estimate Energy Needs: Mueller-Hudson (Basal to Basal + 20% (HB +20- [...] about patient's nutritional care please contact pager [phone] on weekdays or [phone] on weekends/holidays. Jody Aguilar M.B., B.Chir. - [...] and minimize these if possible in the senior care. We have discontinued gabapentin and also her [...] Bergeron M.D. - 11/25/2021 6:14 AM CDT [facility] Gastroenterology A PROGRESS NOTE SUBJECTIVE Ms. [...] PLAN Ms. Carias is hospitalized on [facility] Gastroenterology A for evaluation and management [...] Acute care monitoring needs Plan discussed with [facility] Gastroenterology A Liner Machine Operator, Jody Hernandez M.B., who was present during judd portions of the evaluation today. Please page the [facility] [place] [phone] with any questions. Jody Aguilar M.B., B.Chir. [...] and minimize these if possible in the senior care. We have discontinued gabapentin and also her [...] PLAN Ms. Carias is hospitalized on [facility] Gastroenterology A for evaluation and management [...] Acute care monitoring needs Plan discussed with [facility] Gastroenterology A Liner Machine Operator, Jody Hernandez MSmuaBSuma, who was present during judd portions of the evaluation today. Please page the [facility] [place] [phone] with any questions. Dina Campa M.D. Internal [...] thiamine, vitamin A, zincsupplementation. Paty Maynard, PharmD, [facility] [phone] Jody Aguilar M.B., B.Chir. - 11/23/2021 9:26 [...] and minimize these if possible in the senior care. We have discontinued gabapentin and also her [...] 22 2021. She went out to the [facility] yesterday. She was talking in coherent [...] and minimize these if possible in the director long term care. We have discontinued gabapentin and also her [...] and minimize these if possible in the director long term care. We have discontinued gabapentin and also her [...] Medicine and can be reached via pager [phone]. Session Information Music Therapy Time Spent (Min): [...] antibiotics, spironolactone, thiamine 100 mg, vitamin A 41696 units Mon Wed, zinc sulfate 220 mg [...] 0 kg Estimated Needs: Total Calorie Needs: 8068-8289 calories/day Method to Estimate Energy Needs: Mueller-Hudson (Basal to Basal + 10%) Weight Used [...] about patient's nutritional care please contact pager [phone] on weekdays or [phone] on weekends/holidays. Jody Aguilar M.B., Umu. - [...] and minimize these if possible in the senior care. We have discontinued gabapentin and also her [...] Medical Care - Home Health Care Name: [facility] Office Contact: Nurse How do we reach your agency on a weekend/holiday? [phone] ( FYI unavailable to re-start services on [...] directive. PRIMARY SERVICE: - Please provide a non-[facility] home health order for: detention care, medication management in the After Visit [...] PLAN Ms. Carias is hospitalized on [facility] Gastroenterology A for evaluation and management [...] Vitamin and mineral supplements Plan discussed with [facility] Gastroenterology A Liner Machine Operator, Jody Hernandez M.B., who was present during judd portions of the evaluation today. Please page the [facility] [place] [phone] with any questions. Dina Campa M.D. Internal Medicine, PGY-2 Hima Messer M.D. - 11/19/2021 12:30 PM CDT SUBJECTIVE Interim developments since the initial psychiatric consult and subsequent follow-up were reviewed prior to meeting with Ms. Carias who tells me she is at [facility] in [place], [place] and it is 2021 (as she [...] contact the psychiatry consult service pager at [phone]. Hima Messer M.D. 11/19/2021 Nabila Maynard, Pharm.D., [...] Nutrition: On tube feeds. All meds via [employer]. Paty Maynard, EmperatrizD, [facility] [phone] Jody Aguilar M.B., B.Chir. - 11/19/2021 9:44 [...] encephalopathy secondary to decompensated alcoholic liver disease aCtia Carias is a 31-year-old lady with known alcoholic liver disease who is being readmitted withhepatic encephalopathy most likely due to noncompliance with lactulose therapy. I suspect some of her issues could be from her other medications such as the neuromodulation she is using and the opioids. We will try and minimize these if possible in the director long term care. We have discontinued gabapentin and also her [...] Guerrier M.D. - 11/18/2021 5:19 PM CDT [facility] Palliative Care Consultation Service Progress Note [...] for having the Palliative Medicine team A ([phone]) participate in the care of this patient. [...] team, and can be reached via pager [phone]. Session Information Music Therapy Time Spent (Min): [...] prevacid, spironolactone, thiamine 100 mg, vitamin A 99030 units Wed, zinc sulfate 220 mg Pertinent [...] 0 kg Estimated Needs: Total Calorie Needs: 9289-3354 calories/day Method to Estimate Energy Needs: Mueller-Hudson (Basal to Basal + 10%) Weight Used [...] about patient's nutritional care please contact pager [phone] on weekdays or [phone] on weekends/holidays. Jody Aguilar M.B., B.Chir. - [...] and minimize these if possible in the director long term care. We have discontinued gabapentin and also her [...] PLAN Ms. Carias is hospitalized on [facility] Gastroenterology A for evaluation and management [...] Please contact the primary service pager - [phone] with any questions. Electronically signed by: Gerard [...] leg pain. Since the last visit, Ms. Carais has no new complaints. I have reviewed [...] 0 kg Estimated Needs: Total Calorie Needs: 5401-2779 calories/day Method to Estimate Energy Needs: Mueller-Hudson (Basal to Basal + 10%) Weight Used [...] about patient's nutritional care please contact pager [phone] on weekdays or [phone] on weekends/holidays. Tiffanie Boyd - 11/17/2021 1:00 [...] Pop Favorite Songs, Artists, or Radio Stations: [place], Pop, soft rock Music Therapy Treatment Plan [...] musical preferences. He shared their love for [place], and classic [place] songs were played to promote relaxation and coping support. Christelle gave a smile in response to Toy Storysong, and mouthed the words to You'll Be in My Heart. Lobito expressed appreciation for music therapy support. Music therapy will continue to be available to support Christelle as a part of the Palliative Medicine team, and can be reached via pager [phone]. Session Information Music Therapy Time Spent (Min): [...] and minimize these if possible in the director long term care. We have discontinued gabapentin and also her [...] 8:00 AM CDT Neurology Consult Note Supervising Liner Machine Operator: Dr. Renee Gale Service pager: [phone] SUBJECTIVE Referral [facility] Consult question: Alternative neurological explanation for encephalopathy [...] progressively more confused. She was transferred to [facility] on 11/12. Initially on presentation the [...] Friends and Family: Twice a week Attends Hoahaoism Services: Never Active Member of Clubs or [...] 550 mg, gastric tube, BID, Randal Covarrubias, Pharm.D., R.Ph., 550 mg at 11/16/21 2223 thiamine [...] to page the Neurology Consult pager at [phone] with any questions or concerns and we [...] and minimize these if possible in the senior care. We have discontinued gabapentin and also her [...] of the Neurology consult Service. Examined in [place] [address] room 251. Neuro: While her eyes were [...] follow. Please page the Neurology Consult Service ([phone]) with any questions. Total time 25 min. DIAGNOSES #1 Hepatic encephalopathy #2 Decompensated alcoholic liver disease #3 Rule out nonconvulsive seizures isel Vieyra M.D. - 11/15/2021 2:47 PM CDT Neurology Consult Note Supervising Liner Machine Operator: Dr. Renee Gale Service pager: [phone] SUBJECTIVE Referral [facility] Consult question: Alternative neurological explanation for encephalopathy [...] progressively more confused. She was transferred to [facility] on 11/12. Initially on presentation the [...] Friends and Family: Twice a week Attends Hoahaoism Services: Never Active Member of Clubs or [...] injection 5,000 Units, 5,000 Units, subcutaneous, [facility], Dina Campa M.D., 5,000 Units at 11/15/21 1333 lactulose solution 20 g (CHRONULAC), 20 g, gastric tube, TID, Gerard Andino M.D., M.S., 20 g at 11/15/21 1333 lansoprazole suspension 30 mg (PREVACID), 30 mg, gastric tube, Daily before breakfast, Harish Schulz M.D., 30 mg at 11/15/21 0620 rifAXIMin sugar-free suspension 550 mg (XIFAXAN), 550 mg, gastric tube, BID, Randal Covarrubias, PharmSumaD., R.Ph., 550 mg at 11/15/21 0854 [...] to page the Neurology Consult pager at [phone] with any questions or concerns and we [...] and minimize these if possible in the senior care. We have discontinued gabapentin and also decrease [...] 71.9 kg (11/12/2021) Current Weight: 71.9 kg [place] Body Weight (Calculated) : 51.4 kg BMI [...] 61.6 kg Estimated Needs: Total Calorie Needs: 3487-9102 calories/day Method to Estimate Energy Needs: Mueller-Hudson (Basal to Basal + 10%) Weight Used [...] tube is in the stomach (last verified 7/13 via abdominal imaging) ??? If starting tube [...] formula, 1500 calories, and 68 gm protein, hee479% of Dietary Reference Intake for vitamins/minerals weston [...] about patient's nutritional care please contact pager [phone] on weekdays or [phone] on weekends/holidays. Gerard Andino M.D., M.S. - [...] PLAN Ms. Carias is hospitalized on [facility] Gastroenterology A for evaluation and management of hepatic encephalopathy in the setting of lactulose noncompliance. Her encephalopathy has resolved with appropriate administration of lactulose and bowel movement resumption. She is nonverbal at the moment but alert. Derrek not think this is technical sales representatives of hepatic encephalopathy and is rather behavioral. [...] Please contact the primary service pager - [phone] with any questions. Electronically signed by: Gerard [...] tryand minimize these if possible in the senior care. We have discontinued gabapentin and also decrease [...] she does not know anyhing about her caodaism. Family: Family members were not present Maria De Jesus/Tradition: The patient's caodaism is unknown Plan: Will remain available for spiritual care as needed or requested. Chaplains can be contacted bypaging [phone] ([facility]) or [phone] ([place]). Jody Aguilar M.B., B.Chir. - 11/13/2021 10:05 [...] tryand minimize these if possible in the director long term care. We will discontinue gabapentin and also decrease [...] PLAN Ms. Carias is hospitalized on [facility] Gastroenterology A for evaluation and management [...] Please contact the primary service pager - [phone] with any questions. Electronically signed by: Gerard [...] COVID therapies indicated. Evon Rodriguez Pharm.D., R.Ph. [phone] documented in this encounter H&P Notes Jody [...] tryand minimize these if possible in the senior care. #2 Ascites This is still present. #3 History of acute kidney injury Repeat creatinine is still in a normal range at 0.7. #4 Marijuana use Gerard Andino M.D., M.S. - 11/12/2021 3:38 AM CDT [facility] Gastroenterology A Admission Note REFERRAL SOURCE: [facility] Emergency Department PRIMARY CARE PROVIDER: Primary [...] She was transferred via EMS to the [facility] Emergency Department. On arrival, patient reportedly [...] including alcoholic cirrhosis who is hospitalized on [facility] Gastroenterology A for evaluation and management [...] will be formally staffed with GI A revenue cycle consultant Dr. Aguilar in the morning. Please see the supervisory note for further details. Please contact the primary service pager - [phone] with any questions. Electronically signed by: Gerard [...] follow. Please page the Neurology Consult Service ([phone]) with any questions. DIAGNOSES #1 Hepatic encephalopathy [...] Donna Varghese M.D. CT CT Job ID: [id number] Milagros Patel L.G.S.W., M.S.W. - 11/15/2021 11:03 [...] home nursing to help with medications with [facility] Care. Social work will reconnect to services. Lobito appreciates regular medical updates. OBJECTIVE Patient is hospitalized on [id number]. ASSESSMENT / PLAN ASSESSMENT Patient not appropriate to assess. Patient significant other Lobito is a reliable historian. PLAN -social work submitted the reconnect to [facility] Health service. Danny Babin, M.S.W. 11/15/21 T Rachel Winston M.D. - 11/15/2021 9:11 AM CDT Psychiatry Consult Note Consult Question - encephalopathy and hallucination not explained by hepatic etiology, concern for catatonia RECOMMENDATIONS *Please refer to the revenue cycle consultant's note for final recommendations* Patient's presentation [...] Carias is a 31 y.o. female from [place], [place] who was admitted 11/12/2021 1:11 AM [...] Friends and Family: Twice a week Attends Hoahaoism Services: Never Active Member of Clubs or [...] contact the C/L Psychiatry on-call service pager [phone] with any questions. Rachel Winston M.D. Lath Hand Nessa Mcfarland M.D. - 11/14/2021 4:21 PM CDT [facility] Palliative Medicine MECHANICAL MAINTENANCE WORKER/PA Collaborative Visit Note I have discussed the patient with Zenobia Nguyễn APRN/DAPHNEY. I have reviewed the pertinent history. I discussed the impression and plan with the MECHANICAL MAINTENANCE WORKER/PA. I agree with the history, examination, impression, and recommendations as documented in today's note from the MECHANICAL MAINTENANCE WORKER/PA except as documented below. Ms. Carias is [...] CDTAssociated Order(s): IP CONSULT TO PALLIATIVE CARE [facility] Palliative Medicine New Consult Note Patient: Catia Carias; 31 y.o.female Location: 251/251-P Date of Service: 11/14/2021 Time of Visit: 3:56 PM CDT Hospital Admission Date: 11/12/2021 1:11 AM Hospital Day: 2 Primary Custom Ski Maker: Jody Aguilar M.B., * Primary Care Provider: [...] have reviewed the patient???s record in the [place] Prescription Monitoring Program (NAIL MACHINE OPERATOR) with no unexpected findings. The following portions [...] mental status. It's never not worked before. Lobitoand Parris also expressed concern about Christelle's transplant eligibility. [...] hesitate to contact us at service pager [phone]. It is our pleasure to have the opportunity to participate in Christelle's continued care. Thank you. Zenobia Nguyễn APRN, [facility] Center for Palliative Medicine documented [...] lacking in appropriate nutritional intake. Wheelchair ride [facility] [employer] was offered as well as a shower and pt refused at this time. Problem: SAFETY ADULT Goal: Maintain a safe environment Outcome: Progressing Note: Pt transitioned to Video monitor from NH, as she has been appropriate in the room and uses call light Amber Tavarez RGabby - 11/23/2021 9:14 PM CDT Shift Goals: [...] for catheter care to be done by FIRST FRONT VENTILATOR/IA. RN encouraged taking medications PO and reiterated [...] 11/22/21 Time initiated: 1819 Initiated by: Other (FIRST FRONT VENTILATOR in hallway with patient) ASSESSMENT: Patient is a 31 y.o. female admitted to [facility] for Change Mental Status. When this screenplay writer was walking to a consultation Ms. Carias was ambulating in the hallway with her assigned FIRST FRONT VENTILATOR. Patient impulsively got up from wheelchair with no concern for the lines she was connected to. She was attempting to use the phone at the nurses station. Ms. Carias stated to an individual on the phone (possibly [facility] flying shear operator), you need to come pick me up, when individual responded questioning her current location, she hung up the phone. When talking with the patient she was initially calm. Ms. Carias suddenly changed her facial expression and hit this screenplay writer on the arm and stated, I'm scared. [facility] Security wascalled to assist. Patient's assigned [...] free to contact the ROSMERY RN at [phone], or in an emergent situation by activating the ROSMERY team through the hospital flying shear operator by dialing 911. Heather Nassar R.N. - 11/21/2021 8:00 PM CDT This screenplay writer making entry as this happened when I came on shift. Patient was assisted to the to betaken outside per service request. Pt was taken out to the courtyard by the FIRST FRONT VENTILATOR and boyfriend Bob.Immediately after going to the courtyard, the patient would not follow directions according to the FIRST FRONT VENTILATOR. FIRST FRONT VENTILATOR tried to get her to stay in her w/c and she would not comply. Pt got out of the w/c and laid in the grass. FIRST FRONT VENTILATOR hit her duress button on her badge [...] M.P.H. - 11/12/2021 3:22 AM CDT ED GUIDE ALPINE NOTE 31 year old female with h/o [...] a supervisoryrole. Rosaura Sevilla M.D., M.P.H. 11/17/21 8278 Rosaura Sevilla M.D., M.P.H. 11/17/21 7191 Titi Oswald M.D. - 11/12/2021 1:54 AM [...] 1:48 AM CDT Patient presents to the [facility] via EMS for altered mental status. Patient was discharged yesterday from [facility] for hospitalization of hepatic encephalopathy. Patient's [...] coordinate the care. For questions, contact the [facility] Covid Care Team (CCT): Pager: [phone] In basket: P RST/MCHS COVID-19 POSITIVE Covid Care e-consult NOTE: At the time of testing, patients are instructed to obtain the result by calling the [employer] result line or by checking their online services account. [facility] Course - Gerard Andino M.D., M.S. [...] She was transferred via EMS to the [facility] Emergency Department. On arrival she was [...] Virtual Visit Transplant Matthew Jerome M .B.B.S., Callie. [address] [place] [phone] 2 aRin Reyes R.N. [address] [place] [phone] Telemedicine Transplant LinaFederico 2 Brigid noyola M.D. [address] [place] [phone] Office Visit Community Internal Deanov, 2 Medicine Vernell Perez [address] [place] [phone] Lab Laboratory Medicine Karin, 2 Adeline Gannon M.D., Ph.D. [address] [place] [phone] Lab Laboratory Medicine Karin, 2 Adeline Gannon M.D., Ph.D. [address] [place] [phone] Office Visit Transplant Karin, 2 Adeline Gannon M.D., Ph.D. [address] [place] [phone] Appointment Radiology Matthew Jerome 2, M.B.B.SSuma, Lilian [address] [place] [phone] Appointment Gastroenterology and Adrianne, 2 Hepatology Yue Burciaga M.D. [address] [place] [phone] Office Visit Gastroenterology and Matthew Jerome 2 Hepatology Joshua RodriguezB.B.SLilian Moise [address] [place] [phone] Appointment Radiology Matthew Jerome 2 Tyrell Rodriguez M.D. [address] [place] [phone] Hospital Gastroenterology and Matthew Jerome Cirrhos is Alcoholic (HCC) 2 Encounter Hepatology Tyrell Rodriguez M.D. [address] [place] [phone] Anesthesia Event Gastroenterology and Rl, 2 Hepatology Ervin Burgos M.D. [address] [place] [phone] Surgery Gastroenterology and [facility] ESOPHAG OGASTRODUODENOSCOPY 2 Hepatology Tyrell Rodriguez M.D. [address] [place] [phone] Scheduled Procedures Name Priority Associated Diagnoses Date/Time ESOPHAGOGASTRODUODENOSCOPY Cirrhosis Alc oholic (HCC) 03/20/2022 8:45 AM FILTER BED PLACER Hypertension Portal (HCC) Scheduled Referrals Name Type Priority Associated Diagnoses Order S [facility] [place] [facility] Routine Cirrhosis Alcoholic Ordered: Health [...] (ABNORMAL) Dipstick, Urine (11/26/2021 6:59 AM CDT) [facility] gist Method Time Signature Hemoglobin, Trace [...] Code Phon e Number [facility] - [address] [place], [place] [address] [place] [address] [facility] [address] pH, Urine (11/26/2021 6:59 AM CDT) athologist Signature pH, U 6.3 4.5 - 8.0 11/26/2021 8:06 DTL AM CDT Specimen Anatomical Collection Method Collection Time Receive d Time (Source) Location / / Volume Laterality Urine 11/26/2021 6:59 AM 2 7:15 CDT AM CDT Gerard Andino M.D., M.S. LAB URINE ORDERABLES Performing Organization Address City/State/ZIP Code Phon e Number [facility] - [address] [place], [place] [address] [place] [address] Laboratories[address] Osmolality, Urine (11/26/2021 6:59 AM CDT) athologist Signature Osmolality, U 325 150 - 1150 11/26/2021 DTL mOsm/kg 8:06 AM CDT Specimen Anatomical Collection Method Collection Time Receive d Time (Source) Location / / Volume Laterality Urine 11/26/2021 6:59 AM 2 7:15 CDT AM CDT Gerard Andino M.D., M.S. LAB URINE ORDERABLES Performing Organization Address City/[facility]/ZIP Code Phon e Number [facility] - [address] [place], [place] [address] [place] [address] [address] (ABNORMAL) Microscopic Automated (11/26/2021 6:59 AM CDT) Analysis Performed At [facility] Time Signature Microscopy Abnormal 11/26/2021 DTL 7:48 [...] AM 7:15 CDT AM CDT Gerard Andino M.D. M.S. LAB URINE ORDERABLES Performing Organization Address [facility] Phon e Number [facility] - [address] [place], [place] [address] [place] [address] Bacterial Culture, Aerobic + Susc, Urine (11/26/2021 6:59 AM CDT) [facility] Meeps Method Time Signature Urine Culture No growth 11/27/2021 DTL after 1 day 8:35 AM CDT of incubation. Specimen Anatomical Collection Method Collection Time Receive d Time (Source) Location / / Volume Laterality Urine (Urine, 11/26/2021 6:59 AM 11/27/19 22 7:31 Midstream) CDT AM CDT Comment: Specimen Source Site: Urine Gerard Andino M.D., M.S. LAB MICROBIOLOGY - GENERAL O RDERABLES Performing Organization Address City/[facility] Phon e Number [facility] - [address] [place], [place] [address] [place] [id number] [place] [address] (ABNORMAL) Urinalysis with Microscopic: Urine, Midstream (11/26/2021 6:59 AM CDT) [facility] Meeps Method Time Signature Source Urine, Urine, 11/26/2021 [...] Code Phon e Number [facility] - [address] [place], [place] [address] [place] [address] [facility] [address] Abdomen Pelvis with [...] Code Phon e Number [facility] - [address] [place], [place] [address] [place] [address] [facility] [address] Magnesium (11/25/2021 6:55 AM CDT) athologist Signature Magnesium, S 1.7 1.7 - 2.3 11/25/2021 DTL mg/dL 7:54 AM CDT Specimen Anatomical Collection Method Collection Time Receive d Time (Source) Location / / Volume Laterality Blood (Blood, 11/25/2021 6:55 AM 11/26/19 7:33 Venous) CDT AM CDT Dina Campa M.D. LAB BLOOD ADD-ON Performing Organization Address City/State/ZIP Code Phon e Number [facility] - [address] [place] [address] [place] [address] [facility] [address] [facility] (ABNORMAL) Basic Metabolic Panel (11/25/2021 6:55 AM [...] 11/25/2021 DTL Black/ mL/min/BSA 7:54 AM CDT [place]i Comment: ----ADDITIONAL INFORMATION---- Estimated GFR calculated using [...] Code Phon e Number [facility] - [address] [place] [address] [place] [address] [facility] 200 [facility] (ABNORMAL) CBC with Differential, Blood (11/25/2021 6:55 AM CDT) [facility] Method Time Signature Hemoglobin 7.5 (L) [...] Code Phon e Number [facility] - [address] [place], [place] [address] [place] [address] [facility] [address] DX Abdomen [...] intraperitoneal air on supine radiographs. IUD. Harish T Schulz M.D. IMG DIAGNOSTIC IMAGING PROCE DUR US Paracentesis with Imaging Guidance (11/24/2021 1:28 [...] with Differential, Blood (11/24/2021 10:39 AM CDT) [facility] Method Time Signature Hemoglobin 8.4 (L) 11.6 [...] Code Phon e Number [facility] - [address] [place] [address] [place] [address] [facility] 200 [facility] (ABNORMAL) Basic Metabolic Panel (11/23/2021 6:01 [...] 11/23/2021 DTL Black/ mL/min/BSA 8:52 AM CDT [place] Comment: ----ADDITIONAL INFORMATION---- Estimated GFR calculated using [...] M.S. LAB BLOOD ADD-ON Performing Organization Address City/State/RUST Code Phon e Number [facility] - [address] [place] [address] [place] [address] [facility] 200 [facility] (ABNORMAL) CBC without Differential (11/23/2021 6:01 AM CDT) [facility] gist Method Time Signature Hemoglobin 7.3 [...] Code Phon e Number [facility] - [address] [place], [place] [address] [place] [address] [address] (ABNORMAL) Dipstick, Urine (11/21/2021 6:42 PM [...] M.D. LAB URINE ORDERABLES Performing Organization Address City/[facility]/ZIP Code Phon e Number [facility] - [address] [address] [address] Osmolality, Urine (11/21/2021 6:42 PM CDT) P athologist Signature Osmolality, U 433 150 - 1150 11/21/2021 DTL mOsm/kg 7:58 PM CDT Specimen Anatomical Collection Method Collection Time Receive d Time (Source) Location / / Volume Laterality Urine 11/21/2021 6:42 PM 2 7:03 CDT PM CDT Jovanna Bergeron M.D. LAB URINE ORDERABLES Performing Organization Address City/[facility]/ZIP Code Phon e Number [facility] - [address] [place], [place] [address] [facility] [place] [address] [facility] [address] pH, Random, Urine (11/21/2021 6:42 PM CDT) P athologist Signature pH, Random, U 6.5 4.5 - 8.0 11/21/2021 DTL 7:58 PM CDT Specimen Anatomical Collection Method Collection Time Receive d Time (Source) Location / / Volume Laterality Urine 11/21/2021 6:42 PM 2 7:03 CDT PM CDT Jovanna Bergeron M.D. LAB URINE ORDERABLES Performing Organization Address City/[facility]/ZIP Code Phon e Number [facility] - [address] [place], [place] [id number] [place] [address] [address] [facility] (ABNORMAL) Microscopic Manual (11/21/2021 6:42 PM CDT) [...] Code Phon e Number [facility] - [address] [place], [place] [address] [place] [address] [place] [address] [address] [facility] (ABNORMAL) Urinalysis with Microscopic: Urine, Catheter (11/21/2021 6:42 PM CDT) [facility] Meeps Method Time Signature Source Urine, 11/21/2021 DTL [...] M.D. LAB URINE ORDERABLES Performing Organization Address [facility] Phon e Number [facility] - [address] Bacterial Culture, Aerobic + Susc, Urine (11/21/2021 6:41 PM CDT) [facility] Meeps Method Time Signature Urine Culture No growth 11/23/2021 DT after 1 day 6:50 AM CDT of incubation. Specimen (Source) Anatomical Collection Method Collection Time Re ceived Time Location / / Volume Laterality Urine (Urine, 11/21/2021 6:41 11/21/2021 9:34 Indwelling PM CDT PM CDT Catheter) Comment: Specimen Source Site: Urine Jovanna Bergeron M.D. LAB MICROBIOLOGY - GENERAL O RDERABLES Performing Organization Address City/[facility] Phon e Number [facility] - [address] (ABNORMAL) SPSMA Result (11/21/2021 11:25 AM CDT) Analysis Performed At Patho logist Time Signature Neutrophilic Segs 84 (H) 50 - 75 % 11/21/2021 PM and Bands 1:07 PM CDT Lymphocytes 11 (L) 18 - 42 % 11/21/2021 PM 1:07 PM CDT Monocytes 5 2 - 11 % 11/21/2021 [facility] 1:07 PM CDT Manual Absolute 6.30 1.56 - 11/21/2021 [facility] Neutrophil Count 6.45 1:07 PM CDT [...] Reviewed by: Ruth 11/21/2021 1:07 PM CDT [facility] Specimen Anatomical Collection Method Collection Time Receive d Time (Source) Location / / Volume Laterality Blood (Blood, 11/21/2021 11:25 11/21/2021 Venous) AM CDT 12:03 PM CDT Shannan Rand M.D. LAB BLOOD ADD-ON Performing Organization Address City/[facility]/ZIP Code Phon e Number [address] [address] [place] [address] [facility] 200 [facility] Pernicious Anemia [place] (11/21/2021 11:25 AM CDT) P athologist Signature Vitamin B12 621 180 - 914 11/21/2021 SDSC Assay, S ng/L 6:21 PM CDT Specimen Anatomical Collection Method Collection Time Receive d Time (Source) Location / / Volume Laterality Blood (Blood, 11/21/2021 11:25 11/21/2021 4:05 Venous) AM CDT PM CDT Dina Campa M.D. LAB BLOOD NON ADD-ON Performing Organization Address City/State/ZIP Code Phon e Number [facility] [address] [place], [place] [address] [facility] [place] [address] Laboratory Medicine and Pathology [address] [...] Code Phon e Number [facility] - [address] [place], [place] [address] [place] [address] [facility] [address] (ABNORMAL) Comprehensive Metabolic [...] 11/21/2021 DTL Black/ mL/min/BSA 2:53 PM CDT [place] Comment: ----ADDITIONAL INFORMATION---- Estimated GFR calculated using [...] Code Phon e Number [facility] - [address] [place] [address] [address] (ABNORMAL) CBC with Differential, Blood (11/21/2021 11:25 AM CDT) Patholo gist Method Time Signature Hemoglobin 8.4 (L) 11.6 [...] Organization Address City/State/RUST Code Phon e Number [facility] - [address] [place] [address] Copper, 24 Hour, Urine (11/21/2021 11:00 AM CDT) P athologist Signature [place], 24 Hr, U 19 9 - 71 11/24/2021 [facility] mcg/24 h 10:42 AM CDT Collection 24 h 11/24/2021 [facility] Duration 10:42 AM CDT Volume 815 mL 11/24/2021 [facility] 10:42 AM CDT Comment: ----ADDITIONAL INFORMATION---- This [...] Code Phon e Number [facility] [address] [place] [address] [place] [address] [place] [address] Laboratory Medicine and Pathology [address] [place] (ABNORMAL) Ceruloplasmin (11/20/2021 6:38 AM [...] at or the on-line test catalog at [employer] for m ore information. Specimen Anatomical Collection Method Collection Time Receive d Time (Source) Location / / Volume Laterality Blood (Blood, 11/20/2021 6:38 AM 11/21/19 8:33 Venous) CDT AM CDT Gerard Andino M.D., M.S. LAB BLOOD ADD-ON Performing Organization Address City/[facility]/RUST Code Phon e Number [facility] - [address] [place] [address] [place] [address] [facility] 200 [facility] DX Abdomen Portable Anterior Posterior 1 [...] Andino M.D., M.S. IMG DIAGNOSTIC IMAGING PROCE [place]CY Type and Screen (with reflex Antibody ID) (11/19/2021 2:55 PM CDT) [facility] Method Time Signature ABORh B Pos Not 11/19/2021 STRM applicable 3:49 PM CDT Antibody Negative Negative 11/19/2021 STRM Screen 4:03 PM CDT Type & Screen 11/22/2021 11/19/2021 STRM Expiration 23:59 3:49 PM CDT Testing [place] DEFAULT 11/19/2021 STRM Location 3:05 PM CDT Specimen Anatomical Collection Method Collection Time Receive d Time (Source) Location / / Volume Laterality Blood (Blood, 11/19/2021 2:55 PM 11/20/19 3:05 Venous) CDT PM CDT Gerard Andino M.D., M.S. LAB BLOOD BANK TEST ORDERABL ES Performing Organization Address City/[facility]/ZIP Code Phon e Number [facility] - [address] [place], [place] [address] [place] [address] [facility] 200 [facility] Sedimentation Rate (11/19/2021 2:55 PM CDT) Analysis Performed At Patho logist Time Signature Sedimentation 2 2 - 20 11/19/2021 DTL Rate, B mm/h 4:02 PM CDT Specimen Anatomical Collection Method Collection Time Receive d Time (Source) Location / / Volume Laterality Blood (Blood, 11/19/2021 2:55 PM 11/20/19 22 3:17 Venous) CDT PM CDT Gerard Andino M.D., M.S. LAB BLOOD ADD-ON Performing Organization Address City/[facility] Phon e Number [facility] - [address] [place], [place] [address] [place] [address] CRP (C-Reactive Protein) (11/19/2021 2:55 PM CDT) P athologist Signature C-Reactive 6.6 <=8.0 mg/L 11/19/2021 DTL Protein (CRP), 3:54 PM CDT S Specimen Anatomical Collection Method Collection Time Receive d Time (Source) Location / / Volume Laterality Blood (Blood, 11/19/2021 2:55 PM 11/20/19 22 3:29 Venous) CDT PM CDT Gerard Andino M.D., M.S. LAB BLOOD ADD-ON Performing Organization Address City/State/RUST Code Phon e Number [facility] - [address] [place], [place] [address] [facility] [address] (ABNORMAL) CBC without Differential (11/19/2021 2:55 [...] M.S. LAB BLOOD ADD-ON Performing Organization Address [facility] Phon e Number [facility] - [address] Bacteria / Raudel Culture, Blood #2 (11/19/2021 12:59 PM CDT) Patholo gist Method Time Signature Bacteria/Adriana No growth 11/24/2021 DT da Culture, after 5 2:02 PM CDT Blood days of incubation. Specimen (Source) Anatomical Collection Method Collection Time Re ceived Time Location / / Volume Laterality Blood (Blood, 11/19/2021 12:59 11/19/2021 1:49 Peripheral Draw) PM CDT PM CDT Comment: Specimen Source Site: Blood Jovanna Bergeron M.D. LAB MICROBIOLOGY - GENERAL O RDERABLES Performing Organization Address City/[facility] Phon e Number [facility] - [address] Lactate, 3 hour draw (11/19/2021 12:45 PM CDT) P athologist Signature Lactate, P 1.3 0.5 - 2.2 11/19/2021 DTL mmol/L 2:16 PM CDT Specimen Anatomical Collection Method Collection Time Receive d Time (Source) Location / / Volume Laterality Blood (Blood, 11/19/2021 12:45 11/19/2021 1:46 Venous) PM CDT PM CDT Jovanna Bergeron M.D. LAB BLOOD NON ADD-ON Performing Organization Address City/[facility]/ZIP [facility] Phon e Number [facility] - [address] Bacteria / Raudel Culture, Blood #1 (11/19/2021 [...] - GENERAL O RDERABLES Performing Organization Address [facility] Phon e Number [facility] - [address] Phosphorus Inorganic (11/19/2021 7:13 AM CDT) P athologist Signature Phosphorus 2.9 2.5 - 4.5 11/19/2021 DTL (Inorganic), S mg/dL 8:33 AM CDT Specimen Anatomical Collection Method Collection Time Receive d Time (Source) Location / / Volume Laterality Blood (Blood, 11/19/2021 7:13 AM 11/20/19 8:09 Venous) CDT AM CDT Gerard Andino M.D., M.S. LAB BLOOD ADD-ON Performing Organization Address City/[facility]/ZIP [facility] Phon e Number [facility] - [address] [place] [address] Magnesium (11/19/2021 7:13 AM CDT) P athologist [...] Code Phon e Number [facility] - [address] [place] [address] [address] [place] [address] [facility]-[address] (ABNORMAL) Hepatic Function Panel (11/19/2021 7:13 [...] Code Phon e Number [facility] - [address] [place], [place] [address] [place] [address] [facility] 200 [facility] (ABNORMAL) Basic Metabolic Panel (11/19/2021 7:13 [...] 11/19/2021 DTL Black/ mL/min/BSA 9:20 AM CDT [place]i Comment: ----ADDITIONAL INFORMATION---- Estimated GFR calculated using [...] Code Phon e Number [facility] - [address] [place], [place] [address] [place] [address] [facility] [address] [facility] (ABNORMAL) CBC with Differential, Blood (11/19/2021 7:13 AM CDT) [facility] Method Time Signature Hemoglobin 7.6 (L) [...] Blood (Blood, 11/19/2021 7:13 AM 11/20/19 22 7:41 Venous) CDT AM CDT Gerard Andino M.D., M.S. LAB BLOOD ADD-ON Performing Organization Address City/State/ZIP Code Phon e Number [facility] - [address] [place], [place] [address] [place] [address] [facility] [address] [place] Paracentesis with Imaging [...] 11/18/2021 EXAM: US PARACENTESIS WITH IMAGING KYLER NCE [...] PROCEDURES Gram Stain (11/18/2021 3:29 PM CDT) [employer] Method Time Signature Gram Stain No organisms seen. 11/18/2021 DTL White blood cells present. 10:50 PM CDT Specimen (Source) Anatomical Collection Method Collection Time Re ceived Time Location / / Volume Laterality Peritoneal Fluid 11/18/2021 3:29 11/19/19 22 5:38 PM CDT PM CDT Narrative [facility] - 11/18/2021 10:50 PM CDT Bacterial Culture: Received Bactec aerob ic and Bactec anaerobic bottles Gerard Andino M.D., M.S. LAB MICROBIOLOGY - GENERAL O RDERABLES Performing Organization Address City/State/ZIP Code Phon e Number [facility] - [address] [place], [place] [address] [place] [address] [facility] [address] Bacterial Culture, Aerobic + Susc (11/18/2021 3:29 PM CDT) [facility] Meeps Method Time Signature Bacterial No growth 11/23/2021 DTL Culture, after 5 7:47 AM CDT Aerobic + Susc days of incubation. Specimen (Source) Anatomical Collection Method Collection Time Re ceived Time Location / / Volume Laterality Peritoneal Fluid 11/18/2021 3:29 11/19/19 5:38 PM CDT PM CDT Narrative [facility] - 11/23/2021 7:47 AM CDT Bacterial Culture: Received Bactec aerob ic and Bactec anaerobic bottles Gerard Andino M.D., M.S. LAB MICROBIOLOGY - GENERAL O RDERABLES Performing Organization Address City/State/ZIP Code Phon e Number [facility] - [address] [place] [address] [place] [address] Laboratories-[address] Cell Count and Differential, Body Fluid (11/18/2021 3:29 PM CDT) [facility] Method Time Signature Fluid Type Peritoneal- 11/18/2021 [...] DHPM malignant cells CDT seen. Reviewed by: [employer] 11/19/2021 8:23 AM [facility] CDT Specimen Anatomical Collection Method Collection Time Receive d Time (Source) Location / / Volume Laterality Fluid 11/18/2021 3:29 PM 4:30 (Peritoneal CDT PM CDT Fluid) Gerard Andino M.D., M.S. LAB BODY FLUIDS AND STOOLS O RDERABLES Performing Organization Address City/[facility]/ZIP Code Phon e Number [facility] - [address] [place], [place] [address] Phosphorus Inorganic (11/18/2021 8:56 AM CDT) athologist Signature Phosphorus 2.7 2.5 - 4.5 11/18/2021 DTL (Inorganic), S mg/dL 10:11 AM CDT Specimen Anatomical Collection Method Collection Time Receive d Time (Source) Location / / Volume Laterality Blood (Blood, 11/18/2021 8:56 AM 11/19/19 22 9:52 Venous) CDT AM CDT Shannan Rand M.D. LAB BLOOD ADD-ON Performing Organization Address City/[facility]/ZIP Code Phon e Number [facility] - [address] [address] [place] [address] [address] [facility] Magnesium (11/18/2021 8:56 AM CDT) athologist Signature Magnesium, S 2.1 1.7 - 2.3 11/18/2021 DTL mg/dL 10:11 AM CDT Specimen Anatomical Collection Method Collection Time Receive d Time (Source) Location / / Volume Laterality Blood (Blood, 11/18/2021 8:56 AM 11/19/19 22 9:52 Venous) CDT AM CDT Shannan Rand M.D. LAB BLOOD ADD-ON Performing Organization Address City/State/ZIP Code Phon e Number [facility] - [address] [place], [place] [address] [place] [address] (ABNORMAL) Comprehensive Metabolic Panel (11/18/2021 8:56 AM CDT) [facility] Time Signature Potassium, S 3.8 3.6 - [...] 11/18/2021 DTL Black/ mL/min/BSA 12:18 PM CDT [place]i Comment: ----ADDITIONAL INFORMATION---- Estimated GFR calculated using [...] Code Phon e Number [facility] - [address] [place] [address] [place] [address] [facility] 200 [facility] (ABNORMAL) CBC with Differential, Blood (11/18/2021 8:56 AM CDT) [facility] Method Time Signature Hemoglobin 9.7 (L) 11.6 [...] Code Phon e Number [facility] - [address] [place], [place] [address] [place] [address] [facility] [address] EEG prolonged (11/17/2021 10:14 AM CDT) Specimen [...] Rodriguez M.D. NEUROLOGY ORDERABLES Performing Organization Address City/[facility]/ZIP Code Phon e Number [facility] NA EEG prolonged (11/17/2021 10:14 AM CDT) Specimen (Source) Anatomical Location Collection Method / Collectio n Time Received Time / Laterality Volume Narrative [facility] - 11/17/2021 2:35 PM CDT EEG MONITORING DAILY REPORT BACKGROUND Report: Computer-assisted prolonged vide o EEG monitoring since the beginning of the recording showed the fo neeta. BACKGROUND: ??The awake recording reveal ed 7-8 [...] Rodriguez M.D. NEUROLOGY ORDERABLES Performing Organization Address City/[facility]/ZIP Code Phon e Number [facility] MMODAL NA [...] tube tip in the stomach. IUD. Harish PERALES DIAGNOSTIC IMAGING PROCE [place] (ABNORMAL) Comprehensive Metabolic [...] 11/16/2021 DTL Black/ mL/min/BSA 10:20 AM CDT [place]i Comment: ----ADDITIONAL INFORMATION---- Estimated GFR calculated using [...] Code Phon e Number [facility] - [address] [place] [address] [address] [place] [address] [facility] [address] [facility] [place] (ABNORMAL) CBC with Differential, Blood (11/16/2021 7:11 AM CDT) [facility] Method Time Signature Hemoglobin 7.7 (L) [...] Code Phon e Number [facility] - [address] [place], [place] [address] [place] [address] [facility] [address] MR Brain without [...] Code Phon e Number [facility] - [address] [place], [place] [address] [place] [address] [facility] [address] (ABNORMAL) Ammonia (11/15/2021 6:14 AM CDT) P athologist Signature Ammonia, P 31 (H) <=30 11/15/2021 DTL mcmol/L 7:00 AM CDT Specimen Anatomical Collection Method Collection Time Receive d Time (Source) Location / / Volume Laterality Blood (Blood, 11/15/2021 6:14 AM 11/16/19 22 6:36 Venous) CDT AM CDT Gerard Andino M.D., M.S. LAB BLOOD NON ADD-ON Performing Organization Address City/State/ZIP Code Phon e Number [facility] - [address] [place], [place] [address] [place] [address] [facility] [address] [facility] Phosphorus Inorganic (11/15/2021 6:14 AM CDT) P athologist Signature Phosphorus 2.5 2.5 - 4.5 11/15/2021 DTL (Inorganic), S mg/dL 7:16 AM CDT Specimen Anatomical Collection Method Collection Time Receive d Time (Source) Location / / Volume Laterality Blood (Blood, 11/15/2021 6:14 AM 11/16/19 22 7:02 Venous) CDT AM CDT Gerard Andino M.D., M.S. LAB BLOOD ADD-ON Performing Organization Address City/[facility]/ZIP Code Phon e Number [facility] - [address] [place], [place] [address] [place] [address] [facility] [address] [facility] Magnesium (11/15/2021 6:14 AM CDT) P athologist Signature Magnesium, S 2.1 1.7 - 2.3 11/15/2021 DTL mg/dL 7:16 AM CDT Specimen Anatomical Collection Method Collection Time Receive d Time (Source) Location / / Volume Laterality Blood (Blood, 11/15/2021 6:14 AM 11/16/19 22 7:02 Venous) CDT AM CDT Gerard Andino M.D., M.S. LAB BLOOD ADD-ON Performing Organization Address City/State/ZIP Code Phon e Number [facility] - [address] [place], [place] [address] [place] [address] [facility] [address] [facility] (ABNORMAL) Hepatic Function Panel (11/15/2021 6:14 AM [...] Code Phon e Number [facility] - [address] [place] [address] [place] [address] [facility] 200 [facility] (ABNORMAL) Basic Metabolic Panel (11/15/2021 6:14 AM [...] 11/15/2021 DTL Black/ mL/min/BSA 10:03 AM CDT [place]i Comment: ----ADDITIONAL INFORMATION---- Estimated GFR calculated using the 2009 CKD_EPI creatinine equation. eGFR-Black/ >90 >=60 mL/min/BSA 2021 10:03 AM CDT DTL Comment: ----ADDITIONAL INFORMATION---- Estimated GFR calculated using the 2009 CKD_EPI creatinine equation. Calcium, Total, S 8.7 8.6 - 10.0 mg/dL 11/15/2021 7:30 AM CDT DTL Glucose, S 109 70 - 140 mg/dL 11/15/2021 7:30 AM CDT DTL Specimen Anatomical Collection Method Collection Time Receive d Time (Source) Location / / Volume Laterality Blood (Blood, 11/15/2021 6:14 AM 11/16/19 6:52 Venous) CDT AM CDT Gerard Andino M.D., M.S. LAB BLOOD ADD-ON Performing Organization Address City/State/ZIP Code Phon e Number [facility] - [address] [place] [address] [place] [address] [facility] 200 [facility] (ABNORMAL) CBC without Differential (11/15/2021 6:14 AM CDT) [facility] gist Method Time Signature Hemoglobin 7.8 [...] M.S. LAB BLOOD ADD-ON Performing Organization Address City/[facility] Phon e Number [facility] - [address] Phosphorus Inorganic (11/14/2021 9:00 PM CDT) P athologist Signature Phosphorus 2.6 2.5 - 4.5 11/14/2021 DTL (Inorganic), S mg/dL 10:55 PM CDT Specimen Anatomical Collection Method Collection Time Receive d Time (Source) Location / / Volume Laterality Blood (Blood, 11/14/2021 9:00 PM 11/15/19 9:46 Venous) CDT PM CDT Gerard Andino M.D., M.S. LAB BLOOD ADD-ON Performing Organization Address City/State/[facility] Phon e Number [facility] - [address] [place] [id number] Magnesium (11/14/2021 9:00 PM CDT) P athologist Signature Magnesium, S 1.8 1.7 - 2.3 11/14/2021 DTL mg/dL 10:55 PM CDT Specimen Anatomical Collection Method Collection Time Receive d Time (Source) Location / / Volume Laterality Blood (Blood, 11/14/2021 9:00 PM 11/15/19 9:46 Venous) CDT PM CDT Gerard Andino M.D., M.S. LAB BLOOD ADD-ON Performing Organization Address City/[facility] Phon e Number [facility] - [id number] [place] [address] Potassium (11/14/2021 9:00 PM CDT) P athologist Signature Potassium, S 4.1 3.6 - 5.2 11/14/2021 DTL mmol/L 10:55 PM CDT Specimen Anatomical Collection Method Collection Time Receive d Time (Source) Location / / Volume Laterality Blood (Blood, 11/14/2021 9:00 PM 11/15/19 9:46 Venous) CDT PM CDT Gerard Andino M.D., M.S. LAB BLOOD ADD-ON Performing Organization Address City/[facility] Phon e Number [facility] - [id number] [place] [address] (ABNORMAL) Hepatic Function Panel (11/14/2021 6:56 AM [...] Code Phon e Number [facility] - [address] [place], [place] [address] [place] [address] [facility] [address] [facility] (ABNORMAL) Basic Metabolic Panel (11/14/2021 6:56 AM [...] 11/14/2021 DTL Black/ mL/min/BSA 9:14 AM CDT [place]i Comment: ----ADDITIONAL INFORMATION---- Estimated GFR calculated using [...] M.S. LAB BLOOD ADD-ON Performing Organization Address City/[facility] Phon e Number [facility] - [address] [place], [place] [address] [place] [address] [facility] 200 [facility] (ABNORMAL) CBC without Differential (11/14/2021 6:56 AM CDT) [facility] Method Time Signature Hemoglobin 9.1 (L) 11.6 [...] M.S. LAB BLOOD ADD-ON Performing Organization Address City/[facility]/[place] Code Phon e Number [facility] - [address] [place], [place] [address] [place] [address] [facility] [address] [facility] SARS Coronavirus 2, Antigen, Rapid, V Asymptomatic (11/13/2021 9:45 AM CDT) [facility] Method Time Signature SARS CoV-2, Undetected [...] us ing the SARS-CoV-2 Ag Test from [employer], which has received Emergency U se Authorization (EUA) by the U.S. Food and Drug Administration. Fact sheets for this Emergency Use Autho rization (EUA) assay can be found at the following links: For Healthcare Providers: https://www.[employer].com/assets/images/n ew/pdf/zin-yps-titd-xlprj-rlqyuhvv-o iyl-jtg-2-ag-test.pdf?v=4 For Patients: https://www.[employer].com/assets/images/n ew/pdf/lru-etavuxv-cbzm-sheet-lumira jq-jtfb-vgu-9-ttlawjw-jvqx.pdf?v=5 SARS CoV-2, Antigen, Rapid, Swab, Nasopharynx 10/31 9:54 AM CDT [facility] Source Specimen Anatomical Collection Method Collection Time Receive d Time (Source) Location / / Volume Laterality Varies 11/13/2021 9:45 AM 9:54 (Nasopharynx) CDT AM CDT Gerard Andino M.D., M.S. LAB MICROBIOLOGY - GENERAL O RDERABLES Performing Organization Address City/State/ZIP Code Phon e Number [place] [address] [address] [place], [place] [address] [place] [address] [facility] (ABNORMAL) Hepatic Function Panel (11/13/2021 6:19 AM [...] Code Phon e Number [facility] - [address] [place] [address] [place] [address] [facility] 200 [facility] (ABNORMAL) Basic Metabolic Panel (11/13/2021 6:19 [...] 11/13/2021 DTL Black/ mL/min/BSA 9:23 AM CDT [place] Comment: ----ADDITIONAL INFORMATION---- Estimated GFR calculated using [...] Code Phon e Number [facility] - [address] [place] [address] [place] [address] [facility] [address] [facility] (ABNORMAL) CBC without Differential (11/13/2021 6:19 AM CDT) [facility] gist Method Time Signature Hemoglobin 7.9 [...] M.S. LAB BLOOD ADD-ON Performing Organization Address City/State/RUST Code Phon e Number [facility] - [address] [place] [address] [place] [address] Laboratories-[address] DX Abdomen Portable Anterior Posterior 1 [...] HEAD WITHOUT IV CONTRAST COMPARISON: Compared to [facility] head CT fro 03/21/2021. FINDINGS: Beam [...] HEAD WITHOUT IV CONTRAST COMPARISON: Compared to [facility] head CT fro 03/21/2021. FINDINGS: Beam [...] acute intracranial abnormality. Rosaura Sevilla M.D., M.P.H. IM CT PROCEDURES (ABNORMAL) SARS Coronavirus 2, PCR Rapid, V Symptomatic (11/12/2021 3:44 AM CDT) [facility] Method Time Signature SARS CoV-2, Detected (A) Undetected 11/12/2021 [facility] PCR, Rapid, V 4:20 AM CDT Comment: ----ADDITIONAL INFORMATION---- This RT-PCR test was performed using the Daniel SARS-CoV-2 and Influenza A/B Reagent assay from [employer], which has received Emergency Use Authori zation(EUA) by the U.S. Food and Drug Administration . Fact sheets for this Emergency Use Autho rization (EUA) assay can be found at the following link s: For Healthcare Providers: https://www.fda.gov/media/538367/downloa d For Patients: https://www.fda.gov/media/862933/downloa d SARS Coronavirus 2, Source, Rapid Swab, Nasopharynx 11/12/2021 3:48 AM CDT ST[facility] Specimen Anatomical Collection Method Collection Time Receive d Time (Source) Location / / Volume Laterality Varies 11/12/2021 3:44 AM 3:48 (Nasopharynx) CDT AM CDT Rosaura Sevilla M.D., M.P.H. LAB MICROBIOLOGY - GENERA L ORDERABLES Performing Organization Address City/State/ZIP Code Phon e Number [facility] - [address] [place] [address] [place] [address] [facility] 200 [facility] Drug Screen Urine (11/12/2021 3:19 AM CDT) [facility] Method Time Signature Ethanol, Negative NEGATIVE 11/12/2021 [...] Code Phon e Number [facility] - [address] [place], [place] [address] [place] [address] [facility] [address] Peripheral Venous Access [...] Prothrombin Time (PT) (11/12/2021 1:54 AM CDT) [facility] gist Method Time Signature Prothrombin 37.4 (H) 9.4 - 12.5 [facility] P sec 2:13 AM CDT INR 3.3 0.9 - 1.1 11/12/2021 [facility] 2[facility] AM CDT Comment: ----ADDITIONAL INFORMATION---- Standard intensity warfarin therapeutic range: 2.0 to 3.0 ?? High intensity warfarin therapeutic rang e: 2.5 to 3.5 Specimen Anatomical Collection Method Collection Time Receive d Time (Source) Location / / Volume Laterality Blood (Blood, 11/12/2021 1:54 AM 11/13/19 1:59 Venous) CDT AM CDT Titi Oswald M.D. LAB BLOOD ADD-ON Performing Organization Address City/[facility] Phon e Number [facility] - [address] (ABNORMAL) APTT (Activated Partial Thromboplastin Time) (11/12/2021 1:54 AM CDT) athologist Signature Activated 42 (H) 25 - 37 11/12/2021 [facility] Partial sec 2:16 AM CDT Thrombopl Time, P Specimen Anatomical Collection Method Collection Time Receive d Time (Source) Location / / Volume Laterality Blood (Blood, 11/12/2021 1:54 AM 11/13/19 1:59 Venous) CDT AM CDT Titi Oswald M.D. LAB BLOOD ADD-ON Performing Organization Address City/[facility] Phon e Number [facility] - [address] Ethanol Level, Serum (11/12/2021 1:54 AM CDT) athologist Signature Ethanol, S <10 <10 mg/dL 11/12/2021 3:15 DTL AM CDT Specimen Anatomical Collection Method Collection Time Receive d Time (Source) Location / / Volume Laterality Blood (Blood, 11/12/2021 1:54 AM 11/13/19 2:40 Venous) CDT AM CDT Authorizing Provider Result Woodrow Oswald M.D. LAB BLOOD NON ADD-ON Performing Organization Address [facility] Phon e Number [facility] - [address] [place] [address] [place] [address] S-TSH (Thyroid-Stimulating Hormone - Sensitive) (11/12/2021 1:54 AM CDT) athologist Signature TSH, Sensitive 3.3 0.3 - 4.2 11/12/2021 DT mIU/L 3:15 AM CDT Specimen Anatomical Collection Method Collection Time Receive d Time (Source) Location / / Volume Laterality Blood (Blood, 11/12/2021 1:54 AM 11/13/19 2:40 Venous) CDT AM CDT Authorizing Provider Result Woodrow Oswald M.D. LAB BLOOD ADD-ON Performing Organization Address [facility] Phon e Number [facility] - [address] (ABNORMAL) Basic Metabolic Panel (11/12/2021 1:54 [...] CDT eGFR-Black/Afri >90 >=60 11/12/2021 DTL can [place] mL/min/BSA 3:01 AM CDT Comment: ----ADDITIONAL INFORMATION---- [...] Code Phon e Number [facility] - [address] [place], [place] [address] [place] [address] [facility] [address] [place] [address] [facility] [address] (ABNORMAL) Hepatic Function Panel (11/12/2021 1:54 AM CDT) [facility] Method Time Signature Bilirubin, Total, S 18.0 [...] M.D. LAB BLOOD ADD-ON Performing Organization Address City/[facility] Phon e Number [facility] - [address] [place], [place] [address] [facility] [place] [id number] Laboratories-[address] hCG (Human Chorionic Gonadotropin), Quantitative, (11/12/2021 1:54 AM CDT) P athologist Signature HCG, 0.5 <5 IU/L 11/12/2021 [facility] Quantitative, 2:17 AM CDT , P Specimen Anatomical Collection Method Collection Time Receive d Time (Source) Location / / Volume Laterality Blood (Blood, 11/12/2021 1:54 AM 11/13/19 1:59 Venous) CDT AM CDT Authorizing Provider Result Woodrow Oswald M.D. LAB BLOOD ADD-ON Performing Organization Address City/State/[facility] Phon e Number [facility] - [address] [place], [place] [address] [place] [address] (ABNORMAL) CBC with Differential, Blood (11/12/2021 1:54 AM CDT) Patholo gist Method [...] Code Phon e Number [facility] - [address] [place], [place] [address] [place] [address] [facility] [address] [place] [address] [facility] [address] (ABNORMAL) Ammonia [...] LAB BLOOD NON ADD-ON Performing Organization Address City/[facility]/ZIP Code Phon e Number [facility] - [address] [place], [place] [address] [place] [address] [facility] [address] [facility] Lactate, POCT (11/12/2021 1:54 AM CDT) Analysis Performed At Patho logist Time Signature Lactate, POCT Collected DEFAULT 11/12/2021 SMLX 1:54 AM CDT Specimen Anatomical Collection Method Collection Time Receive d Time (Source) Location / / Volume Laterality Blood (Blood, 11/12/2021 1:54 AM 11/13/19 1:54 Venous) CDT AM CDT Titi Oswald M.D. LAB POCT ORDERABLES - DEVICE Performing Organization Address City/[facility]/ZIP Code Phon e Number [facility] - [address] [place], [place] [address] [place] [address] [facility] [address] Venous Blood [...] POCT ORDERABLES - DEVICE Performing Organization Address City/[facility]/ZIP Code Phon e Number [facility] - [address] [place], [place] [address] [place] [address] [facility] [address] Lactate, POCT (11/12/2021 1:52 AM CDT) athologist Signature Lactate, POCT 2.19 0.50 - 11/12/2021 PCLX 2.20 2:04 AM CDT mmol/L Sample Site, [facility] 11/12/2021 PCLX POCT 2:04 AM CDT Specimen Anatomical Collection Method Collection Time Receive d Time (Source) Location / / Volume Laterality Blood 11/12/2021 1:52 AM 2:04 CDT AM CDT Unknown Provider LAB POCT ORDERABLES - DEVICE Performing Organization Address City/State/ZIP Code Phon e Number POC [facility] [address] [place] [address] PCL[facility] [place] [address] [place] [facility] [address] (ABNORMAL) Venous Blood Gas and Electrolytes CG8+, POCT (11/12/2021 1:51 AM CDT) athologist [facility] Sample Site, [facility] 11/12/2021 PCSM POCT 2:04 AM CDT Comment: [...] POCT ORDERABLES - DEVICE Performing Organization Address City/State/RUST Code Phon e Number POC [facility] [address] [place], [place] [address] [facility] [place] [address] [place] [facility] [address] (ABNORMAL) CRP (C-Reactive Protein) [...] Code Phon e Number [facility] - [address] [place], [place] [address] [place] [address] [facility] [address] documented in this encounter Visit Diagnoses Diagnosis Encephalopathy - Primary Change Mental Status Malaise (Concern For Covid-19) Cirrhosis Alcoholic (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 (HCC ) Ascites Anemia Thrombocytopenia (HCC) Delirium Cirrhosis Alcoholic (HCC) Cirrhosis Alcoholic (HCC) Hypertension [...] 100 mL/hr 12.5 g, intravenous, Once, On Tu11/18/21 at 0745, For 1 dose, If no [...] (Ne w Bag - Provider: [place] Toribio RSumaNSuma) 50 g, intravenous, Once, On Wed11/24/21 at 1400, For 1 dose, If no infusion rate specified: Administer the 25% solution at 100 mL/hr diclofenac sodium 1 % gel 2 g (VOLTAREN) 2358 (Given - Provider: Jo Ann Stevens R.N.) 0926 (Given - Provider: Deja Langford, R.N.)1324 (Not Given - Provider: Deja Langford, R.N. - Reason: Other) 2 g, topical, [...] Langford, R.N.) 0924 (Given - Provider: Deja Langford, R.N.) 1 mg, oral, Daily, First dose [...] (Not Given - Provider: Jo Ann Stevens RSumaN. - Reason: Patient/family refused) 0549 (Given - Provider: Jo Ann hanley, R.N.)1302 (Given - Provider: Deja Langford R.N.)2123 (Given - Provider: Amy Zaragoza RSumaN.) 0609 (Given - Provider: Jo Ann hanley R.NSuma) 5,000 Units, subcutaneous, Every 8 hours scheduled, First dose on Wed11/18/21 at 2200 HYDROmorphone (PF) injection 0.2 mg (DILAUDID) (COMPLETED) 0549 (Given - Provider: Jo Ann Stevens R.N.) 0.2 mg, intravenous, Once, On Wed11/25/21 at 0545, For 1 dose HYDROmorphone tablet 1 mg (DILAUDID) (COMPLETED) 0811 (Given - Provider: Deja Langford RSumaNSuma) 1 mg, oral, Once, On Wed11/25/21 at [...] Contraindicated) 0812 (Not Given - Provider: Deja Langford R.N. - Reason: Contraindicated - Comment: bm goal met)1302 (Given - Provider: Deja Langford RSumaN.)2123 (Given - Provider: Amy Zaragoza RSumaN.) 0924 (Given - Provider: Deja Langford R.N.) 10 g, oral, 3 times daily, First dose (a fter last modification) on Wed11/24/21 at 1400 lidocaine 5 % 1 patch (LIDODERM) 2358 (M edication Applied - Provider: Jo Ann Stevens R.N.) 1157 (Medication Removed - Provider: Anat Langford RSumaNSuma) 1 patch, transdermal, Administer over 12 Hours, Daily at bedtime, First dose on Wed11/25/21 at 2330, Remove after 12 hours. multivitamin/mineral- tablet 1 tablet 1016 (Gi ekaterina - Provider: [place] Toribio R.N.) 0811 (Given - Provider: Deja Langford, R.N.) 0924 (G iven - Provider: Deja [place]ford, R.N.) 1 tablet, oral, Daily, First dose (after last modification) on Wed11/24/[address] tablet 40 mg (PROTONIX) 0550 (Not Given - Provider: Jo Ann Stevens, R.N. - Reason: Other) 0609 (Given - Provider: Jo Ann hanley, R.NSuma) 40 mg, oral, Daily before breakfast, Fir st dose on Wed11/25/21 at 0700, Swallow whole. Do NOT crush, chew, or split tablet. rifAXIMin tablet 550 mg (XIFAXAN) 1020 (Given - Provid er: [place] Toribio R.N.)2037 (Given - Provider: Jo Ann Stevens R.N.) 08 (Given - Provider: Deja Langford, R.N.)2122 (Given - Provider: Amy Zaragoza R.N.) 0924 (Given - Provider: Deja Langford, R.N.) 550 mg, oral, 2 times daily, First dose on Wed11/24/21 at 1015, Indications: encephalopathy sodium chloride (PF) 0.9 % injection 1-100 mL (COMPLETED) 1021 (Given - Provider: Perri Mcintyre R.N.) 1-100 mL, intravenous, Once, On 11/25 at 1030, For 1 dose, Imaging Protocol Orders spironolactone tablet 100 mg (ALDACTONE) 1201 (Given - Provider: [place] Toribio RGabby) 0811 (Not Given - Provider: Deja son R.N. - Reason: See Provider Order - Comment: held per provider due to hypotension) 0924 (Given - Provider: Deja [place], R.N.) 100 mg, oral, Daily, First dose (after l ast modification) on Wed11/24/21 at 1115 thiamine tablet 100 mg (VITAMIN B1) 1016 (Given - Prov ider: [place] Toribio R.N.) 0811 (Given - Provider: Deja Langford RSumaNSuma) 0924 (Tristan parkeren - Provider: Deja Langford R.NSuma) 100 mg, oral, Daily, First dose (after l ast modification) on Wed11/24/21 at 1015 vitamin A capsule 3,000 mcg 1201 (Given - Provider: [place] trujillo RSumaNSuma) 0950 (Given - Provider: Deja Langford R.NSuma) 3,000 mcg, oral, 3 times weekly (Once day on Wed), First dose on Wed11/24/21 at 1115, For 28 doses, Vitamin A (retinol): Units x 0.3 = mcg; 10,000 Units = 3,000 mcg Vitamin A (Supplemental B eta-carotene): Units x 0.3 = mcg Vitamin A (Dietary Beta-carotene): Units x 0.05 = mcg zinc sulfate capsule 220 mg (ZINCATE) 1014 (Given - Pr ovider: [place] Toribio R.N.) 0811 (Given - Provider: Deja Langford RSumaNSuma) 0924 (Tristan araiza - Provider: Deja Langford R.NSuma) 220 mg, oral, Daily with breakfast, Firs [...] - Comment: abdomen) Code/trauma/sedation medication, Starting on 11/24/21 at 1305 melatonin tablet 5 mg 0020 [...] contact. simethicone chewable tablet 80 mg (MYLICON) 2358 (Given - Provider: Jo Ann Stevens R.N.) 80 mg, oral, 4 times daily PRN, flatulence, Starting on 11/25 at 2316 documented in this encounter Additional Health Concerns Infection Onset Date Last Indicated Resolved Time COVID19 Pending 11/12/2021 11/12/2021 11/12/2021 4:20 AM CDT [id number]: Patients who are NOT sev erely immunocompromised: Asymptomatic - At least 10 days have passed since the date of the first positive PCR test 11/12/2021 11/12/2021 11/13/2021 3:19 PM CDT and Patient has remained asymptomatic throughout their infection Assessment Noted Time PHQ-9 Depression Total Score: 10 10/06/2021 5:00 PM CD T documented as of this encounter Care Teams Carbon Accountant Relationship Specialty Start Date End Date Elsewhere, Pcp PCP - General Family Medicine 03/10/20 11/30/21 [facility] 08/25/21 Ervin Schroeder MD Referring Provider Family Medicine 03/24/[address] [place] [id number] documented as of this encounter
--- OUTSIDE RECORDS SUMMARY | 2022-02-10 09:34 | XMS_ITS | Encounter Summary ---
:1990 Author Organization [facility] Address [address] [place] [address] Care Team Providers Name Role Phone Elsewhere, Pcp Primary Care Provider Unavailable Reason for Visit Reason Comments Vitamin K Encounter Details Date Type Department Care Team Description 10/31/2021 Clinical Communication [facility] PRE/POS T Alina Carranza, Vitamin K [address] [place] [address] [phone] Social History Tobacco Use Types Packs/Day Years [...] you attend episcopalian or Patient refused 2021 catholic services? 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 - 10/31/2021 4:22 PM CDT This comic writer contacted [facility] in [facility], spoke to Perri. Prescription for Vitamin K was received and has not been entered. Perri stated prescription will be ready and patient will be notified by pharmacy via notification system. This comic writer sent patient a message via portal. [...] Transplant Matthew Jerome M .B.B.S., M.D. [address] [place] [phone] 2 Rain Reyes R.N. [address] [place] [phone] [facility]med[facility] Brigid noyola M.D. [address] [place] [address] [phone] Office Visit [facility] Internal [facility], 2 Medicine Vernell Perez [address] [place] [phone] Lab Laboratory Medicine Karin, 2 Adeline Gannon M.D., Ph.D. [address] [place] [address] [phone] Lab Laboratory Medicine Karin, 2 Adeline Gannon M.D., Ph.D. [address] [place] [phone] Office Visit Transplant Karin, 2 Adeline Gannon M.D., Ph.D. [address] [place] [phone] Appointment Radiology Matthew Jerome 2, M.B.B.S., M.D. [address] [place] [phone] Appointment Gastroenterology and [place], 2 Hepatology Yue Burciaga M.D. [address] [place] [phone] Office Visit Gastroenterology and Matthew Jerome 2 Hepatology Tyrell Rodriguez M.D. [address] [place] [phone] Appointment Radiology Matthew Jerome 2 Tyrell Rodriguez M.D. [address] [place] [phone] Hospital Gastroenterology and Matthew Jerome Cirrhos is Alcoholic (HCC) 2 Encounter Hepatology Tyrell Rodriguez M.D. [address] [place] [phone] Anesthesia Event Gastroenterology and [facility], 2 Hepatology Ervin Burgos M.D. 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
--- OUTSIDE RECORDS SUMMARY | 2022-02-10 09:34 | XMS_ITS | Encounter Summary ---
:1990 Author Organization [facility] Address [address] [place] [address] Care Team Providers Name Role Phone Elsewhere, Pcp Primary Care Provider Unavailable Reason for Referral Outpatient (Routine) - Authorized Specialty Diagnoses / Procedures Referred By Contact Refer red To Contact Nicotine Dependence Diagnoses Abuse Tobacco Smoking Ervin Schroeder [place] M.D. [address] [place] [address] Referral ID Status Reason Start Date Expiration Date Visits V isits Requested Authorized [id number] Authorized 11/26/2021 11/26/2022 1 1 Encounter Details Date Type Department Care Team Description 11/14/2021 [facility] Ervin Schroeder Tobacco Smoking (Primary Dx); AND CLINICS TOBY Schaefer M.D. Unspecified Cirrhosis Of Liver (HCC) CLINIC [address] [facility] [address] [place], [place] [id number] [phone] Social History Tobacco Use Types Packs/Day Years [...] you attend adventist or Patient refused 2021 adventism services? 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 [address] [place] [phone] 2 Rain Reyes R.N. [address] [place] [phone] Telemedicine Transplant Ashtyn 2 Brigid noyola M.D. [address] [place] [phone] Office Visit Community Internal [facility], 2 Medicine Vernell Perez [address] [place] [phone] Lab Laboratory Medicine Karin, 2 Adeline Gannon M.D., Ph.D. [address] [place] [phone] Lab Laboratory Medicine Karin, 2 Adeline Gannon M.D., Ph.D. [address] [place] [phone] Office Visit Transplant Karin, 2 Adeline Gannon M.D., Ph.D. [address] [place] [phone] Appointment Radiology Matthew Jerome 2, M.B.B.SSuma, MJules [address] [place] [phone] Appointment Gastroenterology and [place], 2 Hepatology Yue Burciaga M.D. [address] [place] [phone] Office Visit Gastroenterology and Matthew Jerome 2 Hepatology Joshua RodriguezB.B.SSuma, Lilian [address] [place] [phone] Appointment Radiology Matthew Jerome 2 Tyrell Rodriguez M.D. [address] [place] [phone] Hospital Gastroenterology and Matthew Jerome Cirrhos is Alcoholic (HCC) 2 Encounter Hepatology Tyrell Rodriguez M.D. [address] [place] [phone] Anesthesia Event Gastroenterology and [facility], 2 Hepatology Ervin Burgos M.D. [address] [place] [phone] Surgery Gastroenterology and Matthew Jerome ESOPHAG OGASTRODUODENOSCOPY 2 Hepatology Tyrell Rodriguez M.D. 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
--- OUTSIDE RECORDS SUMMARY | 2022-02-10 09:34 | XMS_ITS | Encounter Summary ---
:1990 Author Organization [facility] Address [address] [place] [id number] Care Team Providers Name Role Phone Elsewhere, Pcp Primary Care Provider Unavailable Reason for Visit Auth/Cert Specialty Diagnoses / Procedures Referred By Contact Refer red To Contact Diagnoses Hepatic Encephalopathy Without Coma (HCC) hepatic encephalopathy Procedures DIR Referral ID Status Reason Start Date Expiration Date Visits Requ ested Visits Authorized [id number] 1 1 Encounter Details Date Type Department Care Team Description 11/09/2021 - [facility] Ekta Rubi M.D., M.S. [address] [place] [phone] Hepatic 11/11/2021 [facility] Jody Aguilar M.B., B.Chir. [address] [place] [phone] Encephalopathy [facility], Without Coma ( HCC) [place] (Primary Dx) Building, Sixth Floor [address] [place] [phone] Social History Tobacco Use Types Packs/Day [...] you attend buddhism or Patient refused 2021 restoration services? Do [...] at Date Recorded Female 04/12/2021 7:39 PM BEHAVIOR THERAPIST documented as of this encounter Last Filed [...] CDT DISCHARGE SUMMARY BRIEF OVERVIEW Hospital: [facility] Discharge Provider: Jody Aguilar M.B. Primary Care Provider at Discharge: Primary Care Providers: Elsewhere, Pcp (General) No address on file Primary Care Provider Phone Number: None Primary Care Provider Fax Number: None Primary Team: [facility] Gastroenterology A Admission Date: 11/09/2021 Discharge Date: [...] Scheduled Appointments 11/19/2021 3:15 PM Matthew Jerome M.B.B.S. MCee. Gastroenterology and Hepatology 11/19/2021 4:00 PM LAB 01 [facility] Laboratory Medicine 11/26/2021 4:00 PM SHADI COUNSELOR 01 MERLYN 18 Nicotine Dependence For appointment details refer to your Patient Appointment Guide. TEST RESULTS PENDING AT DISCHARGE Pending Labs Order Current Status [facility] Result Collected (11/11/21 0952) Bacterial Culture, Aerobic [...] CDT You were discharged from the [facility] Gastroenterology A Service. Please identify this service name if you call with questions after hospitalization. AttachmentsThe following attachments cannot be sent through Care Everywhere.Zinc Sulfate (By mouth) (Latvian)documented in this encounter Medications at Time of [...] COVID therapies indicated. Evon Rodriguez Pharm.D., R.Ph. [phone] documented in this encounter H&P Notes Jody [...] RST Gastroenterology A Admission Note REFERRING FACILITY [facility] SUBJECTIVE CHIEF COMPLAINT Altered mental status, jaundice HISTORY OF PRESENT ILLNESS Ms. Catia Carias is a 31 y.o. female who presents with altered mental status and jaundice in the setting of alcoholic cirrhosis (diagnosed 01/2021). PMH is otherwise significant for nicotine dependence, chronic pain syndrome, GERD, chronic pancreatitis, anemia, thrombocytopenia, anxiety, cannabis use, mood disorder. She follows with Dr. Jermoe in the outpatient setting undergoing transplant evaluation. [...] PLAN Ms. Carias is hospitalized on [facility] Gastroenterology A for evaluation and management of [...] seen and discussed with [facility]ST Gastroenterology A Green Chain Offbearer, Jo Ann Abbasi M.D.. Please see the supervisory note for further details. Please contact the primary service pager - [phone] with any questions. documented in this encounter [...] Visit Transplant Matthew Jerome M .B.B.S., Lilian [address] [place] [phone] 2 Rain Reyes R.N. [address] [place] [phone] Telemedicine Transplant LinaFederico 2 Brigid noyola M.D. [address] [place] [phone] Office Visit [facility], 2 Medicine Farida Perez-C. [address] [place] [phone] Lab Laboratory Medicine Karin, 2 Adeline Gannon M.D., Ph.D. [address] [place] [phone] Lab Laboratory Medicine Olinda Frazier M.D., Ph.D. [address] [place] [phone] Office Visit Transplant Karin, 2 Adeline Gannon M.D., Ph.D. [address] [place] [phone] Appointment Radiology Matthew Jerome 2, M.B.B.S., Lilian [address] [place] [phone] Appointment Gastroenterology and Adrianne, 2 Hepatology Yue Burciaga M.D. [address] [place] [phone] Office Visit Gastroenterology and Matthew Jreome 2 Hepatology Joshua RodriguezBSumaBLilian Bedolla [address] [place] [phone] Appointment Radiology Matthew Jerome 2 Joshua RodriguezBSumaBLilian Bedolla [address] [place] [phone] Hospital Gastroenterology and Matthew Jerome Cirrhos is Alcoholic (HCC) 2 Encounter Hepatology Joshua RodriguezB.B.Lilian [place] [address] [place] [phone] Anesthesia Event Gastroenterology and Rl, 2 Hepatology Ervin Burgos M.D. [address] [place] [phone] Surgery Gastroenterology and Matthew Jerome ESOPHAG OGASTRODUODENOSCOPY 2 Hepatology Elizabeth Rodriguez.B.B.SSuma, Lilian [address] [place] [phone] Pending Results Name Type Priority Associated Diagnoses Date/Ti nh Prepare Red Blood Blood Bank Routine 11/10/2021 4:37 AM CDT Cells, 1 Units Prepare Red Blood Blood Bank Routine 11/10/2021 4:37 AM CDT Cells, 1 Units Scheduled Procedures Name Priority Associated Diagnoses Date/Time ESOPHAGOGASTRODUODENOSCOPY Cirrhosis Alc oholic (HCC) 03/20/2022 8:45 AM BEHAVIOR THERAPIST Hypertension Portal (HCC) documented as of [...] Results SPSMA Result (11/11/2021 9:52 AM CDT) [facility] Delivery Agent Method Time Signature Neutrophilic Segs 71 50 [...] Organization Address City/State/ZIP Code Phon e Number [facility] - [address] [place], [place] [address] [place] [address] Laboratories-[facility] [address] (ABNORMAL) Prothrombin Time (PT) (11/11/2021 4:31 AM CDT) [facility] Method Time Signature Prothrombin 35.2 (H) [...] Organization Address City/State/ZIP Code Phon e Number [facility] - [address] [place], [place] [address] [facility] [place] [address] Laboratories-[facility] [address] [facility] (ABNORMAL) Comprehensive Metabolic Panel (11/11/2021 4:31 AM [...] 11/11/2021 DTL Black/ mL/min/BSA 6:27 AM CDT Singaporean Comment: ----ADDITIONAL INFORMATION---- Estimated GFR calculated using [...] Organization Address City/State/ZIP Code Phon e Number [facility] - [address] [place], [place] [address] [facility] [place] [address] Laboratories-[facility] [address] (ABNORMAL) CBC without Differential (11/11/2021 4:31 AM CDT) [facility] gist Method Time Signature Hemoglobin 7.4 [...] Organization Address City/State/ZIP Code Phon e Number [facility] - [address] [place] [address] [facility] [place] [address] Laboratories-[facility] [address] Transfuse Red Blood Cells [...] process. ?? All other fluids refer to [email or web address] for further interpretive information. This t est has been modified from the imaging scheduler's instruc tions. Its performance characteristics were determi foreign by [facility] in a manner consistent with [...] AND STOOLS O JOSE Performing Organization Address City/Va Hospital/ZIP Code Phon e Number [facility] - [address] [place], [place] [address] [facility] [place] [address] [facility] 200 [facility] Gram Stain (11/10/2021 2:32 PM CDT) Patholo gist Method Time Signature Gram Stain No organisms seen. 11/10/2021 DTL White blood cells present. 8:25 PM CDT Specimen Anatomical Collection Method Collection Time Receive d Time (Source) Location / / Volume Laterality Fluid 11/10/2021 2:32 PM 2 5:21 (Peritoneal CDT PM CDT Fluid) Comment: Specimen Source Site: Fluid Narrative [facility] - 11/10/2021 8:25 PM CDT Bacterial Culture: Received Bactec aerob ic and Bactec anaerobic bottles Gerard Andino M.D., M.S. LAB MICROBIOLOGY - GENERAL O JOSE Performing Organization Address City/Va Hospital/ZIP Code Phon e Number [facility] - [address] Protein, Total, Body Fluid (11/10/2021 2:32 PM [...] ical findings. All other fluids refer to [email or web address] for further inter pretive information. This test has been modified from the imaging scheduler's instructions. Its perform ance characteristics were determined by [facility] in a manner consistent with [...] Organization Address City/State/ZIP Code Phon e Number [facility] - [address] [place] [address] [facility] [place] [address] Laboratories-[address] Cell Count and Differential, Body Fluid (11/10/2021 2:32 PM CDT) [facility] Method Time Signature Fluid Type [...] Its performance characteri stics were determined by [facility] in a manner co nsistent [...] Cells 6 % 11/10/2021 8:50 PM CDT [facility] Comment: ----REFERENCE VALUE---- The reference range and other method performance specifications have not been established for this bodyfluid. The test result must be integrated into the clinical context for interpretation. Other Cells Are: Mesothelial cells 11/10/2021 8:50 PM CDT [facility] Comment No blasts or malignant cells seen. 11/10 8:50 PM CDT [facility] Reviewed by: Tech 11/10/2021 8:50 PM CDT [facility] Specimen Anatomical Collection Method Collection Time Receive d Time (Source) Location / / Volume Laterality Fluid 11/10/2021 2:32 PM 2 3:47 (Peritoneal CDT PM CDT Fluid) Gerard Andino M.D., M.S. LAB BODY FLUIDS AND STOOLS O JOSE Performing Organization Address [facility]/Va Hospital/[facility] Phon e Number [facility] - [address] [place] [address] Bacterial Culture, Aerobic + Susc (11/10/2021 2:32 PM CDT) [facility] Method Time Signature Bacterial No growth 11/15/2021 DTL Culture, after 5 9:17 AM CDT Aerobic + Susc days of incubation. Specimen Anatomical Collection Method Collection Time Receive d Time (Source) Location / / Volume Laterality Fluid 11/10/2021 2:32 PM 2 5:21 (Peritoneal CDT PM CDT Fluid) Comment: Specimen Source Site: Fluid Narrative [facility] - 11/15/2021 9:17 AM CDT Bacterial Culture: Received Bactec aerob ic and Bactec anaerobic bottles Gerard Andino M.D., M.S. LAB MICROBIOLOGY - GENERAL O JOSE Performing Organization Address [facility] Hospital/[facility] Phon e Number [facility] - [id number] [place] [address] Transfuse Red Blood Cells : (11/10/2021 12:21 PM CDT) Dina Campa M.D. BLOOD TRANSFUSION ORDERABLES Transfuse Red Blood Cells : , 1 Units (11/10/2021 12:21 PM CDT) Dina Campa M.D. BLOOD TRANSFUSION ORDERABLES Direct Antiglobulin Test (Poly) (11/10/2021 12:02 PM CDT) Patholo gist Method Time Signature Direct Negative Negative 11/10/2021 STR Antiglobulin 12:44 PM CDT Test, Polyspecific Specimen Anatomical Collection Method Collection Time Receive d Time (Source) Location / / Volume Laterality Blood (Blood, 11/10/2021 12:02 11/10/2021 Venous) PM CDT 12:16 PM CDT Dina Campa M.D. LAB BLOOD BANK TEST ORDERABL ES Performing Organization Address City/State/ZIP Code Phon e Number [facility] - [address] [place], [place] [address] [facility] [place] [address] Laboratories-[facility] [address] (ABNORMAL) SPSMA Result (11/10/2021 12:02 PM CDT) Analysis Performed At Path logist Time Signature Neutrophilic Segs 80 (H) [...] Reviewed by: Tech 11/10/2021 2:35 PM CDT [facility] Specimen Anatomical Collection Method Collection Time Receive d Time (Source) Location / / Volume Laterality Blood (Blood, 11/10/2021 12:02 11/10/2021 Venous) PM CDT 12:29 PM CDT Dina Campa M.D. LAB BLOOD ADD-ON Performing Organization Address City/State/ZIP Code Phon e Number [facility] - [address] [place], [place] [address] [place], [place] [id number] [place] [address] (ABNORMAL) Haptoglobin (11/10/2021 12:02 PM CDT) [facility] Haptoglobin, S <14 (L) 30 - 200 11/10/2021 [facility] mg/dL 5:27 PM CDT Specimen Anatomical Collection Method Collection Time Receive d Time (Source) Location / / Volume Laterality Blood (Blood, 11/10/2021 12:02 11/10/2021 3:46 Venous) PM CDT PM CDT Dina Campa M.D. LAB BLOOD ADD-ON Performing Organization Address City/State/ZIP Code Phon e Number [facility] [address] [place], [place] [address] [facility] [place] [address] Laboratory Medicine and Pathology [address] TA CESAR (Lactate Dehydrogenase) (11/10/2021 12:02 PM CDT) [facility] LD 208 122 - 222 11/10/2021 DTL U/L 1:10 PM CDT Specimen Anatomical Collection Method Collection Time Receive d Time (Source) Location / / Volume Laterality Blood (Blood, 11/10/2021 12:02 11/10/2021 Venous) PM CDT 12:48 PM CDT Dina Campa M.D. LAB BLOOD NON ADD-ON Performing Organization Address City/State/ZIP Code Phon e Number [facility] - [address] [place], [place] [address] [facility] [place] [address] [facility] [address] (ABNORMAL) Reticulocytes (11/10/2021 12:02 PM CDT) [facility] Method Time Signature Reticulocytes, B 7.17 (H) [...] M.D. LAB BLOOD ADD-ON Performing Organization Address City/[facility] Hospital/[facility] Phon e Number [facility] - [address] (ABNORMAL) Hemoglobin (11/10/2021 12:02 PM CDT) P athologist Signature Hemoglobin 6.9 (L) 11.6 - 15.0 11/10/2021 DTL g/dL 2:23 PM CDT Specimen Anatomical Collection Method Collection Time Receive d Time (Source) Location / / Volume Laterality Blood (Blood, 11/10/2021 12:02 11/10/2021 Venous) PM CDT 12:29 PM CDT Dina Campa M.D. LAB BLOOD ADD-ON Performing Organization Address City/[facility] Hospital/[facility] Phon e Number [facility] - 200 [place], [place] [address] [place] [address] (ABNORMAL) Prothrombin Time (PT) (11/10/2021 4:38 [...] M.D. LAB BLOOD ADD-ON Performing Organization Address City/Va Hospital/ZIP [facility] Phon e Number [facility] - [address] Phosphorus Inorganic (11/10/2021 4:38 AM CDT) P athologist Signature Phosphorus 4.0 2.5 - 4.5 11/10/2021 DTL (Inorganic), S mg/dL 6:10 AM CDT Specimen Anatomical Collection Method Collection Time Receive d Time (Source) Location / / Volume Laterality Blood (Blood, 11/10/2021 4:38 AM 11/11/19 22 5:51 Venous) CDT AM CDT Dina Campa M.D. LAB BLOOD ADD-ON Performing Organization Address City/Va Hospital/ZIP Code Phon e Number [facility] - [address] Magnesium (11/10/2021 4:38 AM CDT) P athologist Signature Magnesium, S 1.7 1.7 - 2.3 11/10/2021 DTL mg/dL 6:10 AM CDT Specimen Anatomical Collection Method Collection Time Receive d Time (Source) Location / / Volume Laterality Blood (Blood, 11/10/2021 4:38 AM 11/11/19 22 5:51 Venous) CDT AM CDT Dina Campa M.D. LAB BLOOD ADD-ON Performing Organization Address City/[facility] Hospital/ZIP [facility] Phon e Number [facility] - [address] (ABNORMAL) Basic Metabolic Panel (11/10/2021 4:38 [...] 11/10/2021 DTL Black/ mL/min/BSA 7:08 AM CDT [place]an Comment: ----ADDITIONAL INFORMATION---- Estimated GFR calculated using [...] Organization Address City/State/ZIP Code Phon e Number [facility] - [address] [place], [place] [address] [facility] [place] [address] Laboratories-[facility] [address] (ABNORMAL) CBC with Differential, Blood (11/10/2021 4:38 [...] Laterality Blood (Blood, 11/10/2021 4:38 AM 11/11/19 5:35 Venous) CDT AM CDT Dina Campa M.D. LAB BLOOD ADD-ON Performing Organization Address City/State/ZIP Code Phon e Number [facility] - [address] [place], [place] [address] [facility] [place] [address] Laboratories-[facility] [address] Type and Screen (with [...] AM 11/11/19 7:29 Venous) CDT AM CDT Dina Campa M.D. LAB BLOOD BANK TEST ORDERABL ES Performing Organization Address City/State/ZIP Code Phon e Number [facility] - [address] [place] [address] [facility] [place] [address] Laboratories-[facility] 200 [facility] ECG 12 Lead (11/09/2021 10:47 PM CDT) P athologist Signature Ventricular Rate 88 BPM MUSE ECG/Min MI Interval 158 ms MUSE QRSD Interval 84 ms MUSE QT Interval 344 ms MUSE QTC Interval 417 ms MUSE P [place] 64 degrees MUSE R [place] 46 degrees MUSE T Wave [place] 37 degrees MUSE Specimen Anatomical Collection Method [...] LI-RADS is supported and endorsed by the [employer]. More information can be found on the followin g link: https://www.acr.org/Clinical-Resources/Vsmzwvkmj-xyn-Futy-Systems/LI-RADS/Ultras chjj-AD-BCSM-v2017 Procedure Note Rex Jenkins M.D. - 11/10/2021 [...] LI-RADS is supported and endorsed by the [employer]. More information can be found on the followin g link: https://www.acr.org/Clinical-Resources/Rmarbothu-iqq-Pdza-Systems/LI-RADS/Ultras iyeg-SA-NBCI-v2017 IMPRESSION: 1. Cirrhotic morphology of the liver wit hout suspicious focal hepatic lesions. LI-RADS 1B. 2. Hepatic arterial and venous vasculatu re is patent with antegrade flow. Elevated main hepatic artery velocities. 3. Moderate volume ascites. Dina Campa M.D. IMG US PROCEDURES Bacteria / Ines Culture, Blood #2 (11/09/2021 8:25 PM CDT) [facility] Method Time Signature Bacteria/Adriana No growth 11/14/2021 DT da Culture, after 5 10:02 PM CDT Blood days of incubation. Specimen (Source) Anatomical Collection Method Collection Time Re ceived Time Location / / Volume Laterality Blood (Blood, 11/09/2021 8:25 11/09/2021 9:40 Peripheral Draw) PM CDT PM CDT Comment: Specimen Source Site: Blood Narrative [facility] - 11/14/2021 10:02 PM CDT Received Bactec Peds bottle Dina Campa M.D. LAB MICROBIOLOGY - GENERAL O RDERABLES Performing Organization Address City/State/ZIP Code Phon e Number [facility] - [address] [place], [place] [address] [facility] [place] [address] Bacteria / Ines Culture, Blood #1 [...] CDT Comment: Specimen Source Site: Blood Narrative [facility] - 11/14/2021 8:02 PM CDT Received Bactec Peds bottle Dina Campa M.D. LAB MICROBIOLOGY - GENERAL O RDERABLES Performing Organization Address City/Va Hospital/[facility] Phon e Number [address] [place], [place] [id number] [place] [address] Phosphorus Inorganic (11/09/2021 7:09 PM CDT) athologist Signature Phosphorus 4.3 2.5 - 4.5 11/09/2021 DTL (Inorganic), S mg/dL 8:15 PM CDT Specimen Anatomical Collection Method Collection Time Receive d Time (Source) Location / / Volume Laterality Blood (Blood, 11/09/2021 7:09 PM 11/10/19 22 7:44 Venous) CDT PM CDT Dina Campa M.D. LAB BLOOD ADD-ON Performing Organization Address City/[facility] Hospital/[facility] Phon e Number [facility] [id number] [place] [address] AFP (Alpha-Fetoprotein), Tumor Marker (11/09/2021 7:09 PM CDT) P athologist Signature Alpha-Fetoprote 6.4 ng/mL 11/10/2021 SDSC [...] method is an immunoenzymatic assay manufactured by [employer]. and is tested on the [employer] DxI 800. Values obtained with different assay [...] Organization Address City/State/ZIP Code Phon e Number [facility] [address] [place], [place] [address] SU[facility] C[facility] [place] [address] Laboratory Medicine and Pathology [address] [place] (ABNORMAL) Magnesium (11/09/2021 7:09 PM CDT) P athologist Signature Magnesium, S 1.6 (L) 1.7 - 2.3 11/09/2021 DTL mg/dL 8:07 PM CDT Specimen Anatomical Collection Method Collection Time Receive d Time (Source) Location / / Volume Laterality Blood (Blood, 11/09/2021 7:09 PM 11/10/19 22 7:44 Venous) CDT PM CDT Dina Campa M.D. LAB BLOOD ADD-ON Performing Organization Address City/[facility] Hospital/[facility] Phon e Number [facility] - 200 [place], [place] [address] [facility] [place] [address] Laboratories-[address] (ABNORMAL) Lactate, baseline (11/09/2021 7:09 PM CDT) P athologist Signature Lactate, P 2.7 (H) 0.5 - 2.2 11/09/2021 STMA mmol/L 7:35 PM CDT Specimen Anatomical Collection Method Collection Time Receive d Time (Source) Location / / Volume Laterality Blood (Blood, 11/09/2021 7:09 PM 11/10/19 22 7:20 Venous) CDT PM CDT Dina Campa M.D. LAB BLOOD NON ADD-ON Performing Organization Address City/[facility] Hospital/[facility] Phon e Number [facility] - 200 [place], [place] [address] [facility] [address] Laboratories-[address] (ABNORMAL) Hepatic Function Panel (11/09/2021 7:09 [...] Organization Address City/State/ZIP Code Phon e Number [facility] - [address] [place], [place] [address] [facility] [place] [address] Laboratories-[facility] [address] (ABNORMAL) Basic Metabolic Panel (11/09/2021 7:09 [...] 11/09/2021 DTL Black/ mL/min/BSA 9:49 PM CDT [place]an Comment: ----ADDITIONAL INFORMATION---- Estimated GFR calculated using [...] M.D. LAB BLOOD ADD-ON Performing Organization Address City/[facility] Hospital/[facility] Phon e Number [facility] - 200 [place], [place] [address] 05 [place], [place] [phone] [place] [address] (ABNORMAL) CRP (C-Reactive Protein) (11/09/2021 7:09 PM CDT) P athologist Signature C-Reactive 8.7 (H) <=8.0 mg/L 11/09/2021 DTL Protein (CRP), 8:07 PM CDT S Specimen Anatomical Collection Method Collection Time Receive d Time (Source) Location / / Volume Laterality Blood (Blood, 11/09/2021 7:09 PM 11/10/19 22 7:44 Venous) CDT PM CDT Dina Campa M.D. LAB BLOOD ADD-ON Performing Organization Address City/[facility] Hospital/[facility] Phon e Number [facility] - [address] [place] [address] [place] [phone] [place] [address] (ABNORMAL) CBC with Differential, Blood (11/09/2021 7:09 [...] Organization Address City/State/ZIP Code Phon e Number [facility] - [address] [place], [place] [address] [facility] [place] [place] [address] [facility]-[employer] [facility] [address] documented in this encounter Visit Diagnoses Diagnosis Hepatic Encephalopathy Without Coma (HCC ) - Primary Cirrhosis Alcoholic (HCC) Ascites Failure Renal Acute (Acute Kidney Injury ) (HCC) Anemia COVID-19 Infection Cirrhosis Alcoholic (HCC) Cirrhosis Alcoholic (HCC) Hypertension [...] Administer the 25% solution at 100 mL/hr bldsgufunxekw-iffftntwwx-jfhibqez in Lipoderm Given 11/11/2021 9 :38 AM [...] human 25 % injection 100 g (COMPLETED) 9050 (N ew Bag - Provider: Kevon Rich R.N.) 100 g, intravenous, Once, On Wed11/09/21 at 2330, For 1 dose, If no infusion rate specified: Administer the 25% solution at 100 mL/hr boyobmeaeiyux-jzpbhxvigu-ixwbcuvo in Lipoderm 2%-5%-5% cream 1 g 1337 [...] 0 917 (Given - Provider: Neptali Calvillo R.N.) 0938 (Given - Provider: Bernardo Nguyen [...] (COMPAZINE) 0444 (Given - Provider: Karen Palacio R.Daniele) 5 mg, intravenous, Every 6 hours PRN, [...] documented as of this encounter Care Teams Towel Folder Relationship Specialty Start Date End Date Elsewhere, Pcp PCP - General Family Medicine 03/10/20 11/30/21 [facility] [place] lab 08/25/21 Ervin Schroeder MD Referring Provider Family Medicine 03/24/[address] [place] [address] documented as of this encounter
--- OUTSIDE RECORDS SUMMARY | 2022-02-10 09:34 | XMS_ITS | Encounter Summary ---
:1990 Author Organization [facility] Address [address] [place] [address] Care Team Providers Name Role Phone Elsewhere, Pcp Primary Care Provider Unavailable Reason for Visit Reason Comments Follow up on caregiver plan Encounter Details Date Type Department Care Team Description 10/20/2021 Clinical Ramirez Santana, Follow up on Communication Center for Joel Gannon, caregiver plan Transplantation and L.I.C.S.W., Clinical Regeneration M.S.W. in [place], [facility] [address] [place], [place] [address] [facility] [facility] [address] [place], [place] [phone] (Work) [phone] Social History Tobacco Use Types Packs/Day Years [...] How often do you attend orthodox or Patient refused 2021 cheondoism services? Do you belong to any clubs or No 02/10/2022 organizations such as orthodox groups, unions, fraNext Big Sound or athletic groups, or school groups? How [...] technical, or vocational p [facility] degree you have received? 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 Radhames Neumann in [facility] [place] [place] Transplant Psychiatry (Pain Rehabilitation) - virtual Complex [...] called the patient on 10/17/2021 (cell phone: [phone]) to attempt to follow up on her [...] Transplant Matthew Jerome M .B.B.S., Lilian [address] [place] [address] 2 Rain Reyes R.N. [address] [place] [phone] Telemedicine Transplant LinaFederico 2 Brigid noyola M.D. [address] [place] [address] [phone] Office Visit [facility], 2 Medicine Vernell Perez [address] [place] [phone] Lab Laboratory Medicine Olinda Frazier M.D., Ph.D. [address] [place] [phone] Lab Laboratory Medicine Olinda Frazier M.D., Ph.D. [address] [place] [phone] Office Visit Transplant Olinda Frazier M.D., Ph.D. [address] [place] [phone] Appointment Radiology Matthew Jerome 2 Tyrell Rodriguez, Lilian [address] [place] [address] [phone] Appointment Gastroenterology and Adrianne 2 Hepatology Yue Burciaga M.D. [address] [place] [phone] Office Visit Gastroenterology and Matthew Jerome 2 Hepatology Joshua RodriguezBSumaBGraeme, Lilian [address] [place] [phone] Appointment Radiology Matthew Jerome 2 Joshua RodriguezBSumaBLilian Bedolla [address] [place] [phone] [facility] Gastroenterology and Matthew Jerome Cirrhos is Alcoholic (HCC) 2 Encounter Hepatology Joshua RodriguezBSumaBGraeme, Lilian [address] [place] [phone] Anesthesia Event Gastroenterology and Rl, 2 Hepatology Ervin Burgos M.D. 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
--- OUTSIDE RECORDS SUMMARY | 2022-02-10 09:34 | XMS_ITS | Encounter Summary ---
:1990 Author Organization [facility] Address [address] [place] [address] Care Team Providers Name Role Phone Elsewhere, Pcp Primary Care Provider Unavailable Reason for Visit Reason Comments Nicotine Dependence Outpatient (Routine) - Closed Specialty Diagnoses / Procedures Referred By Contact Refer red To Contact Nicotine Dependence Jessy Crain M.A., C.T.T.S. [address] [place] [address] Referral ID Status Reason Start Date Expiration Date Visits Requ ested Visits Authorized [id number] Closed 10/01/2021 10/01/2022 1 1 Encounter Details Date Type Department Care Team Description 10/27/2021 Telemedicine Department of Yehuda Crain Dep endence Nicotine Dependence, Jessy Gannon M.A., Dylan arelars (Primary [facility], in C.T.T.S. Dx) [place], [place] [address] [facility] [address] [place] [phone] Social History Tobacco Use Types Packs/Day Years [...] How often do you attend yazidi or Patient refused 2021 evangelical services? 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 - 10/27/2021 9:00 AM CDT Follow-up visit conducted via real-time audio/video technology by eJssy Crain M.A., C.T.T.S. in [place], [place] at [facility] to the patient at home. [...] Visit Transplant Matthew Jerome M .B.B.S., MJules [address] [place] [address] 2 Rain Reyes R.N. [address] [place] [phone] Telemedicine Transplant LinaFederico 2 Brigid noyola M.D. [address] [place] [address] [phone] Office Visit Community Internal Melanienovic, 2 Medicine Vernell Perez 300 [facility] [place] [phone] Lab Laboratory Medicine Karin, 2 Adeline Gannon M.D., Ph.D. [address] [place] [phone] Lab Laboratory Medicine Karin, 2 Adeline Gannon M.D., Ph.D. [address] [place] [phone] Office Visit Transplant Karin, 2 Adeline Gannon M.D., Ph.D. [address] [place] [phone] Appointment Radiology Matthew Jerome 2 Y M.B.B.SSuma, MJules [address] [place] [phone] Appointment Gastroenterology and Adrianne, 2 Hepatology Yue Burciaga M.D. [address] [place] [phone] Office Visit Gastroenterology and Matthew Jerome 2 Hepatology Jennifer M.B.B.SSuma, MJules [address] [place] [address] Appointment Radiology Matthew Jerome 2 Y M.B.B.SSuma, Lilian [address] [place] [phone] Hospital Gastroenterology and Mousa, Matthew Cirrhos is Alcoholic (HCC) 2 Encounter Hepatology Tyrell Rodriguez M.D. [address] [place] [address] [phone] Anesthesia Event Gastroenterology and Rl, 2 Hepatology Ervin Burgos M.D. [address] [place] [address] [phone] Surgery Gastroenterology and Mousa, Matthew ESOPHAG OGASTRODUODENOSCOPY 2 Hepatology Tyrell Rodriguez, Lilian [address] [place] [address] [phone] Scheduled Procedures Name Priority Associated Diagnoses Date/Time ESOPHAGOGASTRODUODENOSCOPY Cirrhosis Alc oholic (HCC) 03/20/2022 8:45 AM REPORT SPECIALIST Hypertension Portal (HCC) documented as of this encounter Visit Diagnoses Diagnosis Nicotine Dependence Cigarettes - Primary Cirrhosis Alcoholic (HCC) Cirrhosis Alcoholic (HCC) Hypertension Portal (HCC) documented in this encounter Additional Health Concerns Assessment Noted Time PHQ-9 Depression Total Score: 10 10/06/2021 5:00 PM CD T documented as of this encounter Care Teams Rn Ostomy Relationship Specialty Start Date End Date Elsewhere, Pcp PCP - General Family Medicine 03/10/20 11/30/21 [facility] [place] lab 08/25/21 Ervin Schroeder MD Referring Provider Family Medicine 03/24/[address] [place] [phone] documented as of this encounter
--- OUTSIDE RECORDS SUMMARY | 2022-02-10 09:34 | XMS_ITS | Encounter Summary ---
:[address] [facility] Address [address] [place] [phone] Care Team Providers Name Role Phone Elsewhere, Pcp Primary Care Provider Unavailable Reason for Visit Transplant (Routine) - Closed Specialty Diagnoses / Procedures Referred By Contact Refer red To Contact Transplant Surgery / Diagnoses Cirrhosis Alcoholic (HCC) Abnormal Liver Function Test Ascites Pretransplant Recipient Evaluation Exam [facility]operative [facility] Lilian, M.P.H. [address] [place] [address] Referral ID Status Reason Start Date Expiration Date Visits Requ ested Visits Authorized [id number] Closed 08/25/2021 08/25/2022 1 1 Encounter Details Date Type Department Care Team Description 10/22/2021 Telemedicine Warren Carter M.D., M.P.H. [address] [place] [phone] Moderate Or Severe Use Disorder (Depende nce) Alcohol Remission (HCC) (Primary Dx); Brigid Graham M.D. 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 - 10/22/2021 3:00 PM CDT DEMOGRAPHICS Catia Carias [address] [place] [phone] 31 y.o. REFERRAL SOURCE: Warren Hernández M.D., M.P.H. Consult conducted via real-time audio/video technology by Brigid Sales M.D. in [facility] to the patient in Patient's Home CHIEF [...] time of this evaluation and reviewed the [facility] record. She has been seen by my [...] before breakfast Indications: Prophylaxis, medical. 30 tablet ??? ergocalciferol (DRISDOL) 50,000 Unit capsule Take [...] and Family: Twice a week ??? Attends Yazidi Services: Never ??? Active Member of Clubs [...] service: No Occupational history: She worked at [employer] Marital/partner status: She has been with her boyfriend for 12 years. Children: No Yazidi/spiritual: None reported. Support network: She is not [...] Transplant Matthew Jerome M .B.B.S., M.D. [address] [place] [address] 2 Rain Reyes R.N. [address] [place] [phone] Telemedicine Transplant Ashtyn 2 Brigid noyola M.D. [address] [place] [phone] Office Visit [facility], 2 Medicine Vernell Perez [address] [place] [address] Lab Laboratory Medicine Karin, 2 Adeline Gannon M.D., Ph.D. [address] [place] [address] [phone] Lab Laboratory Medicine Karin, 2 Adeline Gannon M.D., Ph.D. [address] [place] [phone] Office Visit Transplant Karin, 2 Adeline Gannon M.D., Ph.D. [address] [place] [phone] Appointment [facility] 2 YVikBGraeme, Lilian [address] [place] [phone] Appointment Gastroenterology and Adrianne, 2 Hepatology Yue Burciaga M.D. [address] [place] [phone] [facility] G[facility] 2 Hepatology Vik RodriguezBLilian Bedolla [address] [place] [phone] Appointment Radiology Matthew Jerome 2 YJoshuaB.B.Lilian Stockton [address] [place] [phone] Hospital Gastroenterology and [facility] Cirrhos is Alcoholic (HCC) 2 Encounter Hepatology Joshua RodriguezB.B.Lilian Stockton [address] [place] [phone] Anesthesia Event Gastroenterology and Rl, 2 Hepatology Ervin Burgos M.D. 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 Hypertension Portal (HCC) documented as of this encounter Visit Diagnoses Diagnosis Moderate Or Severe Use Disorder (Depende nce) Alcohol Remission (HCC) - Primary Bulimia Nervosa (HCC) Anorexia Nervosa Restricting Type (HCC) Anxiety Generalized Disorder Cirrhosis Alcoholic (HCC) Ascites Abnormal Liver Function Test Pretransplant Recipient Evaluation Exam Preoperative Exam Cirrhosis Alcoholic (HCC) Cirrhosis Alcoholic (HCC) Hypertension Portal (HCC) documented in this encounter Additional Health Concerns Assessment Noted Time PHQ-9 Depression Total Score: 10 10/06/2021 5:00 PM CD T documented as of this encounter Care Teams Wellness Program Manager Relationship Specialty Start Date End Date Elsewhere, Pcp PCP - General Family Medicine 03/10/20 11/30/21 [facility] [place] lab 08/25/21 Ervin Schroeder MD Referring Provider Family Medicine 03/24/[address] [place], [place] [address] [address] documented as of this encounter
--- OUTSIDE RECORDS SUMMARY | 2022-02-10 09:34 | XMS_ITS | Encounter Summary ---
:1990 Author Organization [facility] Address [address] [place] [address] Care Team Providers Name Role Phone Elsewhere, Pcp Primary Care Provider Unavailable Encounter Details Date Type Department Care Team Description 10/31/2021 Orders Only Department of Mousa, Matthew Y, Cirrhosis Al coholic ([facility]) (Primary Dx); Gastroenterology in Joshua Santillan. Defect Coagulation (HCC) [place], [place] 1025 [facility] 1025 [place] [address] [phone] Social History Tobacco Use Types Packs/Day Years [...] you attend uatsdin or Patient refused 2021 anglican services? Do you belong to any clubs or No 02/10/2022 organizations such as uatsdin groups, unions, fra2-Observe or athletic groups, or school groups? How [...] or the highest technical, or vocational p [facility] degree you have received? 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 [address] [place] [address] [phone] Telemedicine Transplant Ashtyn 2 Brigid noyola M.D. [address] [place] [address] [phone] Office Visit [facility] Internal [facility], 2 Solitario Perez P.A.-C. 300 [facility] [place] [address] Lab Laboratory Medicine Olinda Frazier M.D., Ph.D. [address] [place] [phone] Lab Laboratory Medicine Olinda Frazier M.D., Ph.D. [address] [place] [phone] Office Visit Transplant Karin, Olinda Gannon M.D., Ph.D. [address] [place] [phone] Appointment Radiology Matthew Jerome 2 Joshua RodriguezBSumaBSumaSSuma, Lilian [address] [place] [phone] Appointment Gastroenterology and Adrianne, 2 Hepatology Yue Burciaga M.D. [address] [place] [phone] Office Visit Gastroenterology and Matthew Jerome 2 Hepatology Joshua RodriguezBSumaB.SSuma, Lilian [address] [place] [phone] Appointment Radiology Matthew Jerome 2 Jennifer M.B.B.SSuma, Lilian [address] [place] [phone] Hospital Gastroenterology and Matthew Jerome Cirrhos is Alcoholic (HCC) 2 Encounter Hepatology Tyrell Rodriguez M.D. [address] [place] [phone] Anesthesia Event Gastroenterology and Rl, 2 Hepatology Ervin Burgos M.D. [address] [place] [address] [phone] Surgery Gastroenterology and Mousa, Matthew ESOPHAG OGASTRODUODENOSCOPY 2 Hepatology Tyrell Rodriguez M.D. 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 Hypertension Portal (HCC) documented as of this encounter Visit Diagnoses Diagnosis Cirrhosis Alcoholic (HCC) - Primary Defect Coagulation (HCC) Cirrhosis Alcoholic (HCC) Cirrhosis Alcoholic (HCC) Hypertension Portal (HCC) documented in this encounter Additional Health Concerns Assessment Noted Time PHQ-9 Depression Total Score: 10 10/06/2021 5:00 PM CD T documented as of this encounter Care Teams Cognos Architect Relationship Specialty Start Date End Date Elsewhere, Pcp PCP - General Family Medicine 03/10/20 11/30/21 [facility] [place] lab 08/25/21 Ervin Schroeder MD Referring Provider Family Medicine 03/24/[address] [place] [address] documented as of this encounter
--- OUTSIDE RECORDS SUMMARY | 2022-02-10 09:34 | XMS_ITS | Encounter Summary ---
:1990 Author Organization [facility] Address [address] [place] [address] Care Team Providers Name Role Phone Elsewhere, Pcp Primary Care Provider Unavailable Reason for Visit Reason Comments External Lab Entry 10/25/2021 Encounter Details Date Type Department Care Team Description 10/28/2021 Clinical Ramirez Nguyen Transplant, Rag Willow Operator al Lab Entry Communication Center for Coordinator, (10/25/2021/) Transplantation and R.N. Clinical Regeneration in [facility] potato loader [address] [place] [address] Social History Tobacco Use Types Packs/Day Years [...] you attend episcopal or Patient refused 2021 latter-day services? Do [...] or the highest technical, or vocational p [facility] degree you have received? 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 - 10/29/2021 1:45 PM CDT Noted Telephone Encounter - Matthew Jerome M.B.B.S., M.D. - 10/28/2021 11:36 PM CDT Thanks Laney I reviewed them, no further action is needed at this time. Matthew Telephone Encounter - Laney French M.A.N., REric., C.C.T.C. - 10/28/2021 8:01 AM CDT Please [...] C.C.TSumaC. *All labs are now found in [facility] - Lab - Flowsheets. For further review of labs, please review there or under Synopsis* documented in this encounter Plan of Treatment Upcoming Encounters Date Type Specialty Care Team Description Virtual Visit Transplant Matthew Jerome M .B.B.S., MJules [address] [place] [address] 2 Rain Reyes R.N. [address] [place] [address] [phone] Telemedicine Transplant LinaDemarcus 2 Brigid noyola M.D. [address] [place] [address] [phone] Office Visit Community Internal Neda, 2 Medicine Vernell Perez [address] [place] [address] Lab Laboratory Medicine Olinda Frazier M.D., Ph.D. [address] [place] [address] [phone] Lab Laboratory Medicine Olinda Frazier M.D., Ph.D. [address] [place] [phone] Office Visit Transplant Karin, 2 Adeline Gannon M.D., Ph.D. [address] [place] [phone] Appointment Radiology Matthew Jerome 2 Y, M.B.B.SSuma, Lilian [address] [place] [phone] Appointment Gastroenterology and Adrianne 2 Hepatology Yue Burciaga M.D. [address] [place] [phone] Office Visit Gastroenterology and Matthew Jerome 2 Hepatology Jennifer M.B.B.SLilian Moise [address] [place] [phone] Appointment Radiology Matthew Jerome 2 Y M.B.B.SSuma, Lilian [address] [place] [phone] Hospital Gastroenterology and Matthew Jerome Cirrhos is Alcoholic (HCC) 2 Encounter Hepatology Jennifer M.B.B.SSuma, Lilian [address] [place] [phone] Anesthesia Event Gastroenterology and Rl, 2 Hepatology Ervin Burgos M.D. [address] [place] [address] [phone] 11/18/202 Surgery Gastroenterology and Mousa, Matthew ESOPHAG OGASTRODUODENOSCOPY 2 Hepatology Tyrell Rodriguez M.D. 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
--- OUTSIDE RECORDS SUMMARY | 2022-02-10 09:34 | XMS_ITS | Encounter Summary ---
:1990 Author Organization [facility] Address [address] [place] [address] Care Team Providers Name Role Phone Elsewhere, Pcp Primary Care Provider Unavailable Encounter Details Date Type Department Care Team Description 11/04/2021 Clinical Communication Department of Symone Beebe Gastroenterology in [address] [place] [phone] Social History Tobacco Use Types Packs/Day Years [...] you attend episcopal or Patient refused 2021 yarsani services? 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 [address] [place] [phone] Telemedicine Transplant LinaFederico 2 Brigid noyola M.D. [address] [place] [phone] Office Visit Community Internal [facility] [place] [facility], 2 Medicine Vernell Perez [address] [place] [address] Lab Laboratory Medicine Karin, 2 Adeline Gannon M.D., Ph.D. [address] [place] [phone] Lab Laboratory Medicine Karin, 2 Adeline Gannon M.D., Ph.D. [address] [place] [phone] Office Visit Transplant Karin, 2 Adeline Gannon M.D., Ph.D. [address] [place] [phone] Appointment Radiology Matthew Jerome 2, M.B.B.S., M.D. [address] [place] [phone] Appointment Gastroenterology and Adrianne, 2 Hepatology Yue Burciaga M.D. [address] [place] [phone] Office Visit Gastroenterology and Mousa, Matthew 2 Hepatology Tyrell Rodriguez M.D. [address] [place] [phone] Appointment Radiology Matthew Jerome 2 YTyrell M.D. [address] [place] [phone] Hospital Gastroenterology and Matthew Jerome Cirrhos is Alcoholic (HCC) 2 Encounter Hepatology Tyrell Rodriguez M.D. [address] [place] [phone] Anesthesia Event Gastroenterology and Rl, 2 Hepatology Ervin Burgos M.D. 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
--- OUTSIDE RECORDS SUMMARY | 2022-02-10 09:34 | XMS_ITS | Encounter Summary ---
:1990 Author Organization [facility] Address [address] [place] [address] Care Team Providers Name Role Phone Elsewhere, Pcp Primary Care Provider Unavailable Reason for Referral Transplant (Routine) - Closed Specialty Diagnoses / Procedures Referred By Contact Refer red To Contact Transplant Surgery / Joel Tan [facility] Transplant Shala, M.S.W. [address] [place] [address] Referral ID Status Reason Start Date Expiration Date Visits Requ ested Visits Authorized [id number] Closed 10/29/2021 10/29/2022 1 1 Scheduling Instructions Please schedule a 60 min visit for me to meet with the patient when she returns in the future for pre-transplant follow up. Thank you. Encounter Details Date Type Department Care Team Description 10/29/2021 Orders Only Department of Social Work Rajiv Tan, in [facility] Shala, M.S.W. 200 [facility] [address] [place] [phone] [place] [address] [phone] (Wo rk) Social History Tobacco Use Types [...] often do you attend jehovah's witness or Patient refused 2021 temple services? 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 [address] [place] [phone] Telemedicine Transplant LinaDemarcus 2 Brigid noyola M.D. [address] [place] [phone] Office Visit Community Internal [facility], 2 Medicine Vernell Perez [address] [place] [phone] Lab Laboratory Medicine Karin, 2 Adeline Gannon M.D., Ph.D. [address] [place] [phone] Lab Laboratory Medicine Karin, 2 Adeline Gannon M.D., Ph.D. [address] [place] [phone] Office Visit Transplant Karin, 2 Adeline Gannon M.D., Ph.D. [address] [place] [phone] Appointment Radiology Matthew Jerome 2, M.B.B.SSuma, MJules [address] [place] [phone] Appointment Gastroenterology demian Silver, 2 Hepatology Yue Burciaga M.D. [address] [place] [phone] Office Visit Gastroenterology and Idchantell Matthew 2 Hepatology Tyrell Rodriguez M.D. [address] [place] [phone] Appointment Radiology LuisMatthew abdul 2 YTyrell M.D. [address] [place] [phone] Hospital Gastroenterology and [facility] Matthew Cirrhos is Alcoholic (HCC) 2 Encounter Hepatology Tyrell Rodriguez M.D. [address] [place] [phone] Anesthesia Event Gastroenterology and Rl, 2 Hepatology Ervin Burgos M.D. [address] [place] [phone] Surgery Gastroenterology and Idchantell Matthew ESOPHAG OGASTRODUODENOSCOPY 2 Hepatology Tyrell Rodriguez M.D. 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 Hypertension Portal (HCC) Scheduled Referrals Name Type Priority Associated Order Schedule Diagnoses Transplant Liver Outpatient Referral Routine Expe cted: office visit 01/26/2022 (clinic) (Approximate), Expires: 01/29/2023 documented as of this encounter Visit Diagnoses Not on filedocumented in this encounter Additional Health Concerns Infection Onset Date Last Indicated Resolved Time COVID19 Pending 11/12/2021 11/12/2021 11/12/2021 4:20 AM CDT [id number]: Patients who are NOT sev erely immunocompromised: Asymptomatic - At least 10 days have passed since the date of the first positive PCR test 11/12/2021 11/12/2021 11/13/2021 3:19 PM CDT and Patient has remained asymptomatic throughout their infection Assessment Noted Time PHQ-9 Depression Total Score: 10 10/06/2021 5:00 PM CD T documented as of this encounter Care Teams Furnace Process Supervisor Relationship Specialty Start Date End Date Elsewhere, Pcp PCP - General Family Medicine 03/10/20 11/30/21 [facility] [place] lab 08/25/21 Ervin Schroeder MD Referring Provider Family Medicine 03/24/[address] [place] [phone] documented as of this encounter
--- OUTSIDE RECORDS SUMMARY | 2022-02-10 09:34 | XMS_ITS | Encounter Summary ---
:1990 Author Organization [facility] Address [address] [place] [address] Care Team Providers Name Role Phone Elsewhere, Pcp Primary Care Provider Unavailable Reason for Visit Reason Comments Covid Positive Encounter Details Date Type Department Care Team Description 11/12/2021 Clinical Department of Matthew Jreome Positive Communication Gastroenterology in , M.B.B.S.[facility] [address] [facility] 1025 [place] [address] [place], [place] [phone] Social History Tobacco Use Types Packs/Day [...] you attend adventism or Patient refused 2021 jain services? Do [...] the highest technical, or vocational p [facility] degree you have received? 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 [facility] guidelines recommend that this appointment be changed to a video visit or postponed until after 11/22/2021 unless medically necessary. Please review and forward to your embedded scheduling team to contact the patient to discuss their options. Thank you documented in this encounter Plan of Treatment Upcoming Encounters Date Type Specialty Care Team Description Virtual Visit Transplant Matthew Jerome M .B.B.S., M.D. [address] [place] [phone] 2 Rain Reyes R.N. [address] [place] [phone] Telemedicine Transplant LinaFederico 2 Brigid noyola M.D. [address] [place] [phone] Office Visit Community Internal [facility], 2 Medicine Farida Perez-C. [address] [place] [phone] Lab Laboratory Medicine Karin, Olinda Gannon M.D., Ph.D. [address] [place] [phone] Lab Laboratory Medicine Olinda Frazier M.D., Ph.D. [address] [place] [phone] Office Visit Transplant Olinda Frazier M.D., Ph.D. [address] [place] [address] [phone] Appointment Radiology Matthew Jerome 2, M.B.B.S., M.D. [address] [place] [phone] Appointment Gastroenterology and Adrianne, 2 Hepatology Yue Burciaga M.D. [address] [place] [phone] Office Visit Gastroenterology and Matthew Jerome 2 Hepatology Joshua RodriguezBSumaBLilian Bedolla [address] [place] [address] [phone] Appointment Radiology Matthew Jerome 2 Joshua RodriguezBSumaBLilian Bedolla [address] [place] [phone] Hospital Gastroenterology and Matthew Jerome Cirrhos is Alcoholic (HCC) 2 Encounter Hepatology Joshua RodriguezB.BLilian Bedolla [address] [place] [phone] Anesthesia Event Gastroenterology and Rl, 2 Hepatology Ervin Burogs M.D. 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 Hypertension Portal (HCC) documented as of this encounter Visit Diagnoses Not on filedocumented in this encounter Additional Health Concerns Infection Onset Date Last Indicated Resolved Time COVID19 Pending 11/12/2021 11/12/2021 11/12/2021 4:20 AM CDT [id number]: Patients who are NOT sev erely immunocompromised: Asymptomatic - At least 10 days have passed since the date of the first positive PCR test 11/12/2021 11/12/2021 11/13/2021 3:19 PM CDT and Patient has remained asymptomatic throughout their infection Assessment Noted Time PHQ-9 Depression Total Score: 10 10/06/2021 5:00 PM CD T documented as of this encounter Care Teams Cane Weigher Relationship Specialty Start Date End Date Elsewhere, Pcp PCP - General Family Medicine 03/10/20 11/30/21 [facility] [place] lab 08/25/21 Ervin Schroeder MD Referring Provider Family Medicine 03/24/[address] [place] [phone] documented as of this encounter
--- OUTSIDE RECORDS SUMMARY | 2022-02-10 09:34 | XMS_ITS | Encounter Summary ---
:1990 Author Organization [facility] Address [address] [place] [address] Care Team Providers Name Role Phone Elsewhere, Pcp Primary Care Provider Unavailable Encounter Details Date Type Department Care Team Description 11/10/2021 Episode Changes [facility] Jack French, for Transplantation and [place] RSumaNSuma, Clinical Regeneration in [facility] [place], [place] [phone] [address] [facility] (Work) [place] [phone] Social History Tobacco Use Types Packs/Day [...] you attend yazidi or Patient refused 2021 pentecostal services? 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 [address] [place] [phone] 2 Rain Reyes R.N. [address] [place] [phone] Telemedicine Transplant Ashtyn 2 Brigid noyola M.D. [address] [place] [address] [phone] Office Visit Community Internal Neda, 2 Solitario Perez P.A.-C. [address] [place] [phone] Lab Laboratory Medicine Karin, 2 Adeline Gannon M.D., Ph.D. [address] [place] [phone] Lab Laboratory Medicine Karin, 2 Adeline Gannon M.D., Ph.D. [address] [place] [phone] Office Visit Transplant Karin, 2 Adeline Gannon M.D., Ph.D. [address] [place] [phone] Appointment Radiology Matthew Jerome 2 YJoshuaB.B.Lilian Stockton [address] [place] [phone] Appointment Gastroenterology and Adrianne 2 Hepatology Yue Burciaga M.D. [address] [place] [phone] [facility] 2 [facility]ology Joshua RodriguezB.B.Lilian Stockton [address] [place] [phone] Appointment Radiology Matthew Jerome 2 Y M.B.B.SLilian Moise [address] [place] [phone] [facility] Cirrhos is Alcoholic (HCC) 2 Encounter Hepatology Joshua RodriguezB.BLilian Bedolla [address] [place] [phone] Anesthesia Event Gastroenterology and Rl, 2 Hepatology Ervin Burgos M.D. [address] [place] [phone] Surgery Gastroenterology and Mousa, Matthew ESOPHAG OGASTRODUODENOSCOPY 2 Hepatology Tyrell Rodriguez M.D. 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
--- OUTSIDE RECORDS SUMMARY | 2022-02-10 09:35 | XMS_ITS | Encounter Summary ---
:1990 Author Organization [facility] Address [address] [place] [address] Care Team Providers Name Role Phone Elsewhere, Pcp Primary Care Provider Unavailable Reason for Referral Transplant (Routine) - Closed Specialty Diagnoses / Procedures Referred By Contact Refer red To Contact Transplant Surgery / Adeline Frazier [facility] Transplant Lilian Gannon, Ph.D. [address] [place] [phone] Referral ID Status Reason Start Date Expiration Date Visits Requ ested Visits Authorized [id number] Closed 10/10/2021 10/10/2022 1 1 Reason for Visit Transplant (Routine) - Closed Specialty Diagnoses / Procedures Referred By Contact Refer red To Contact Transplant Surgery / Diagnoses Cirrhosis Alcoholic (HCC) Abnormal Liver Function Test Ascites Pretransplant Recipient Evaluation Exam Preoperative Exam Warren Hernández [facility] Transplant Lilian, M.P.H. [address] [place] [address] Referral ID Status Reason Start Date Expiration Date Visits Requ ested Visits Authorized [id number] Closed 08/25/2021 08/25/2022 1 1 Encounter Details Date Type Department Care Team Description 10/10/2021 Telemedicine Warren Carter M.D., M.P.H. [address] [place], [place] [phone] Alcohol Moderate Or Severe Use Disorder (Dependence) Uncomplicated (HCC) (Primary Dx); [facility] Cannabis Use Unspecified Uncomplicated; Transplantation and Long Ter m Use Of Opiate Analgesic; Clinical Regeneration in [place] otine Dependence Cigarettes; [place], [place] Mood Disorder (HCC); [address] [facility] Anxiety Disorder Unspecified ; [place] [address] Eating Disorder; [phone] Hepatic Encepha lopathy Without Coma (HCC); Chronic [...] How often do you attend anglican or Patient refused 2021 methodist services? 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 - 10/10/2021 8:00 AM CDT Service Date: 10/10/21 DEMOGRAPHICS Patient: Catia Carias Date of : 1990 Age: 31 y.o. Gender: female Address: [address] [place] [phone] Referral source: Liver Transplant Team. Consult conducted via real-time audio/video technology by Dr. Marva Frazier and Zenobia Hollingsworth MA, [facility] in [facility] to the patient in patient's home. CIRCUMSTANCES OF SERVICE INITIATION / REASON FOR REFERRAL Pre-Liver transplant addiction psychiatry evaluation. HISTORY OF PRESENT ILLNESS Ms. Catia Bourgeois is??a very pleasant 31 y.o. partnered female under consideration for liver transplantation. The patient has a history of anxiety, depression, eating disorder and chronic pain. She was previously seen by Radhames Neumann, Ph.D., L.P. in [facility] (Pain Kati abilitation) on 10/06/2021 [...] in the past 30 days? No. OTHER Kphp-uib-Pmvufim: No. Other: No. Compulsive behaviors: No history [...] visit. SOCIAL HISTORY provided by Joel Tan [facility], GUARD ENTRANCE REGISTRAR Pager: [phone] note dated 09/29/2021. Today, the information below was reviewed, verified and updated with the patient. Family of Origin: Family of origin: The patient was raised in [place], [place]. Her parents when she was 20 years old. Her mother remarried. The patient calls her step- father, Siva, her bonus father. The patient's mother and step-father live in [place], [place]. The patient's father did not remarry. He lives in [place], [place], which is 10-12 minutes from the [...] Degree. The patient has her associates of [employer] degree in photography. Employment: Disabled: The patient was previously worked at [employer] in [place] until January 2021 when she became ill. History: No background. Spirituality / Yarsani / Culture: Describe spiritual beliefs: Patient does not identify with any methodist or spiritual beliefs. 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 in [facility] (Pain Rehabilitation), 10/06/2021: - virtual [...] in the patient's local community and at [facility]. - A handout about accessing online recovery meetings such as AA, NA, [employer], etc. - A set of forms to [...] of liver decompensation - inpatient hospitalization at [facility] 03/2021; MELD-Na score: 32 at 09/30/2021 4. [...] records, discussing case with Zenobia Hollingsworth MA, [facility], documenting results of evaluation and treatment recommendations as well as counseling and coordination of care. Collateral information: Collateral information not needed at this time. Electronically signed by: Zenobia Hollingsworth M.A., Nathalie 10/10/21 documented in this encounter Plan of Treatment Upcoming Encounters Date Type Specialty Care Team Description Virtual Visit Transplant Matthew Jerome M .B.B.S., Lilian [address] [place] [address] 2 Rain Reyes R.N. [address] [place] [phone] Telemedicine Transplant LinaFederico 2 Brigid noyola M.D. [address] [place] [phone] Office Visit [facility] Internal [facility], 2 Medicine Vernell Perez 300 [place] [phone] Lab Laboratory Medicine Olinda Frazier M.D., Ph.D. [address] [place] [phone] Lab Laboratory Medicine Olinda Frazier M.D., Ph.D. [address] [place] [phone] Office Visit Transplant Olinda Frazier M.D., Ph.D. [address] [place] [phone] Appointment Radiology Matthew Jerome 2 Tyrell Rodriguez M.D. [address] [place] [phone] Appointment Gastroenterology and [place], 2 Hepatology Yue Burciaga M.D. [address] [place] [phone] Office Visit Gastroenterology and Matthew Jerome 2 Hepatology Tyrell Rodriguez M.D. [address] [place] [phone] Appointment Radiology Matthew Jerome 2 Tyrell Rodriguez M.D. [address] [place] [phone] Hospital Gastroenterology and Matthew Jerome Cirrhos is Alcoholic (HCC) 2 Encounter Hepatology Tyrell Rodriguez M.D. [address] [place] [phone] Anesthesia Event Gastroenterology and Rl, 2 Hepatology Ervin Burgos M.D. [address] [place] [phone] Surgery Gastroenterology and Matthew Jerome ESOPHAG OGASTRODUODENOSCOPY 2 Hepatology Tyrell Rodriguez M.D. [address] [place] [phone] Scheduled Orders Name Type Priority Associated [...] Cirrhosis Alc oholic (HCC) 03/20/2022 8:45 AM UX RESEARCHER Hypertension Portal (HCC) Scheduled Referrals Name Type Priority Associated Order Schedule Diagnoses Transplant Liver Outpatient Referral Routine Expe cted: office visit 01/26/2022 (clinic) (Approximate), Expires: 01/10/2023 documented as of this encounter Results (ABNORMAL) Drug Abuse Survey with Confirmation, Urine (12/15/2021 5:58 PM CDT) [facility] Method Time Signature Alcohol Negative [...] Ph.D. LAB URINE ORDERABLES Performing Organization Address City/[facility] Phon e Number [facility] [address] [place] [address] [place] [address] Laboratory Medicine and Pathology [address] [place] [address] Dr. CHAPPELL Ethyl Glucuronide Confirmation, Random, Urine (12/15/2021 5:51 PM CDT) [facility] Method Time Signature Ethyl Glucuronide Negative Cutoff: 12/17/2021 [facility] Confirmation, U 250 ng/mL 10:34 AM CDT Ethyl Sulfate Negative Cutoff: 12/17/2021 [facility] 100 ng/mL 10:34 AM CDT Ethyl Gluc/Sulfate Negative. 12/17/2021 [facility] Interpretation 10:34 AM CDT Comment: ----ADDITIONAL INFORMATION---- This report is intended for use in clini ada monitoring and management of patients. ??It is not intended for use i n employment-related testing. This test was developed and its performa nce characteristics determined by [facility] in a manner consistent with CLIA requirements. This test has not been cleared or approved by the [place] d and Drug Administration. Specimen Anatomical Collection Method Collection Time Receive d Time (Source) Location / / Volume Laterality Urine (Urine, 12/15/2021 5:51 PM 12/16/19 22 9:55 Midstream) CDT PM CDT Adeline Frazier M.D., Ph.D. LAB URINE ORDERABLES Performing Organization Address City/[facility] Phon e Number [facility] [address] [place] [address] 05 [facility] [place] [address] Laboratory Medicine and Pathology [address] [place] [address] Dr. CHAPPELL Phosphatidylethanol (Peth), whole blood- Sent Out Lab (12/15/2021 5:39 PM CDT) Component Value Ref Range Test Analysis Performed Pathologis t Method Time At Signature Phosphatidylethanol NEGATIVE NEGATIVE 12/26/2021 MTI (PEth) ng/mL 1:01 PM CDT Comment: Analyzed compound: PEth 16:0/18:1. ? 5-lgbbixzvx-2-tiamwv-mu-ajfdsoc-3 -phosphoethanol. ? Analysis performed by [employer] [...] and its performa nce characteristics determined by [employer]. It has not been c leared or approved by the Food and Drug Administration. Specimen Anatomical Collection Method Collection Time Receive d Time (Source) Location / / Volume Laterality Blood (Blood, 12/15/2021 5:39 PM 12/17/19 8:26 Venous) CDT AM CDT Adeline Frazier M.D., Ph.D. LAB BLOOD NON ADD-ON Performing Organization Address City/State/ZIP Code Phon e Number [employer], [employer]. [address] [place] [address] Road D [place] [address] 2 MTI [employer], [place] [address] [place] [address] documented in this encounter Visit Diagnoses Diagnosis Alcohol Moderate Or Severe Use Disorder (Dependence) Uncomplicated (HCC) - Primary Cannabis Use Unspecified Uncomplicated Mcfp Use Of Opiate Analgesic Nicotine Dependence Cigarettes Mood Disorder (HCC) Anxiety Disorder Unspecified Eating Disorder Hepatic Encephalopathy Without Coma (HCC ) Chronic Pain Syndrome Cirrhosis Alcoholic (HCC) Pretransplant Recipient Evaluation Exam Cirrhosis Alcoholic (HCC) Cirrhosis Alcoholic (HCC) Hypertension Portal (HCC) documented in this encounter Additional Health Concerns Assessment Noted Time PHQ-9 Depression Total Score: 10 10/06/2021 5:00 PM CD T documented as of this encounter Care Teams Memory Care Program Director Relationship Specialty Start Date End Date Elsewhere, Pcp PCP - General Family Medicine 03/10/20 11/30/21 [facility] 08/25/21 Ervin Schroeder MD Referring Provider Family Medicine 03/24/[address] [place] [phone] documented as of this encounter
--- OUTSIDE RECORDS SUMMARY | 2022-02-10 09:35 | XMS_ITS | Encounter Summary ---
:1990 Author Organization [facility] Address [address] [place] [address] Care Team Providers Name Role Phone Elsewhere, Pcp Primary Care Provider Unavailable Reason for Referral Outpatient (Routine) - Closed Specialty Diagnoses / Referred By Contact Referred To Procedures Contact Gastroenterology and Diagnoses Cirrhosis Alcoholic (HCC) Hypertension Portal (HCC) Thrombocytopenia (HCC) Abnormal Liver Function Test Deficiency Vitamin A Matthew Jerome [facility] Hepatology Lilian Santillan [address] [place] [address] Referral ID Status Reason Start Date Expiration Date Visits Requ ested Visits Authorized [id number] Closed 10/08/2021 10/08/2022 1 1 Scheduling Instructions 1 month follow up post transplant eval Reason for Visit Reason Comments Follow-up Outpatient (Routine) - Closed Specialty Diagnoses / Referred By Contact Referred To Procedures Contact Gastroenterology and Matthew Jerome [facility] Hepatology Lilian Santillan [address] [place] [address] Referral ID Status Reason Start Date Expiration Date Visits Requ ested Visits Authorized [id number] Closed 08/05/2021 08/05/2022 1 1 Encounter Details Date Type Department Care Team Description 10/08/2021 Office Visit Department of Moch[place]ell, Matthew Cirrhosis Alco holic (HCC) (Primary Dx); Gastroenterology in [place], Hyperten neptali Portal (HCC); [place], [place] Lilian Thrombocytopenia (HCC); 1025 [facility] 1025 [facility] Abnormal Liver Function Test; [place] [address] [place], [place] Deficiency Vitamin A [phone] [address] Social History Tobacco Use Types Packs/Day [...] often do you attend roman catholic or Patient refused 2021 mu-ism services? Do you belong to any clubs or No 02/10/2022 organizations such as roman catholic groups, unions, [...] or the highest technical, or vocational p [facility] degree you have received? 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 She states that she is transparent with the team and is willing to do anything requested that will help her get on the liver transplant list. We reviewed the recent consultation with surgery team, Cardiology, the social work associate as well as the pain clinic. The [...] liver transplant evaluation with the team in [place], pending transplant psychiatry consultation. Unfortunately this was rescheduled until October 22, 2021. I will await her consultation before I present her case to the liver Transplant selection committee in [place], to evaluate her candidacy as a team. [...] PCP ?? #15 Newly diagnosed PFO with goiol-nc-zada atrial shunt: Echo done March 2020 # [...] OLAYINKA Trotter Gastroenterology, Hepatology and Transplant hepatology [facility] documented in this encounter Plan of Treatment Upcoming Encounters Date Type Specialty Care Team Description Virtual Visit Transplant Matthew Jerome M .B.B.S., M.D. [address] [place] [address] 2 Rain Reyes R.N. [address] [place] [phone] Telemedicine [facility] 2 Brigid noyola M.D. [address] [place] [phone] Office Visit [facility] Internal [facility], 2 Solitario Perez P.A.-C. [address] [place] [phone] Lab Laboratory Medicine Karin, 2 Adeline Gannon M.D., Ph.D. [address] [place] [phone] Lab Laboratory Medicine Karin, 2 Adeline Gannon M.D., Ph.D. [address] [place] [phone] Office Visit Transplant Karin, 2 Adeline Gannon M.D., Ph.D. [address] [place] [phone] Appointment Radiology Matthew Jerome 2 YKishore.BGraeme, Lilian [address] [place] [phone] Appointment Gastroenterology and Adrianne, 2 Hepatology Yue Burciaga M.D. [address] [place] [phone] Office Visit Gastroenterology and [facility] 2 Hepatology Joshua RodriguezB.B.Lilian [place] [address] [place] [phone] Appointment Radiology Matthew Jerome 2 YJoshuaB.B.Lilian [place] [address] [place] [phone] Hospital Gastroenterology and [facility] Cirrhos is Alcoholic (HCC) 2 Encounter Hepatology Joshua RodriguezB.B.Lilian [place] [address] [place] [phone] Anesthesia Event Gastroenterology and Rl, 2 Hepatology Ervin Burgos M.D. [address] [place] [phone] Surgery Gastroenterology and [facility] ESOPHAG OGASTRODUODENOSCOPY 2 Hepatology Joshua RodriguezB.B.Lilian [place] [address] [place] [phone] Scheduled Procedures Name Priority Associated Diagnoses Date/Time ESOPHAGOGASTRODUODENOSCOPY Cirrhosis Alc oholic (HCC) 03/20/2022 8:45 AM HEALTH AIDE Hypertension Portal (HCC) Scheduled Referrals Name Type [...] Organization Address City/State/ZIP Code Phon e Number [facility]- [address] [place] [address] [place] [address] System in [place] [address] [place] [address] (ABNORMAL) Prothrombin Time (PT) (12/02/2021 4:14 PM [...] Organization Address City/State/ZIP Code Phon e Number [facility]- [address] [place] [address] [place] [address] System in [place] [address] documented in this encounter Visit Diagnoses Diagnosis Cirrhosis Alcoholic (HCC) - Primary Hypertension Portal (HCC) Thrombocytopenia (HCC) Abnormal Liver Function Test Deficiency Vitamin A Cirrhosis Alcoholic (HCC) Cirrhosis Alcoholic (HCC) Hypertension Portal (HCC) documented in this encounter Additional Health Concerns Assessment Noted Time PHQ-9 Depression Total Score: 10 10/06/2021 5:00 PM CD T documented as of this encounter Care Teams Carpet Jack Relationship Specialty Start Date End Date Elsewhere, Pcp PCP - General Family Medicine 03/10/20 11/30/21 [facility] [place] [facility] 08/25/21 Ervin Schroeder MD Referring Provider Family Medicine 03/24/211979 [address] [place] [address] documented as of this encounter
--- OUTSIDE RECORDS SUMMARY | 2022-02-10 09:35 | XMS_ITS | Encounter Summary ---
:1990 Author Organization [facility] Address [address] [place] [address] Care Team Providers Name Role Phone Elsewhere, Pcp Primary Care Provider Unavailable Reason for Visit Reason Comments Appointment [facility] FA Encounter Details Date Type Department Care Team Description 10/10/2021 Clinical Ramirez Barajas, Camron coreas ([facility] Communication Center for PRANEETH Rowland) Transplantation and Lilian, Ph.D. Clinical [facility] [address] in [facility] [address] [facility] [phone] Social History Tobacco Use Types Packs/Day Years [...] you attend cheondoism or Patient refused 2021 yazidi services? Do you belong to any clubs or No 02/10/2022 organizations such as cheondoism groups, unions, fraSealed or athletic groups, or school groups? How [...] or the highest technical, or vocational p [facility] degree you have received? 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 [address] [place] [address] 2 Rain Reyes R.N. [address] [place] [phone] Telemedicine Transplant LinaDemarcus 2 Brigid noyola M.D. [address] [place] [phone] Office Visit Community Internal [facility], 2 Medicine Vernell Perez [address] [place] [phone] Lab Laboratory Medicine Karin, 2 Adeline Gannon M.D., Ph.D. [address] [place] [phone] Lab Laboratory Medicine Karin, 2 Adeline Gannon M.D., Ph.D. [address] [place] [phone] Office Visit Transplant Karin, 2 Adeline Gannon M.D., Ph.D. [address] [place] [phone] Appointment Radiology Matthew Jerome 2, M.B.BSumaSLilian Moise [address] [place] [address] Appointment Gastroenterology and Adrianne, 2 Hepatology Yue Burciaga M.D. [address] [place] [phone] Office Visit Gastroenterology and Matthew Jerome 2 Hepatology Tyrell Rodriguez M.D. [address] [place] [phone] Appointment Radiology Matthew Jerome 2 YTyrell M.D. [address] [place] [phone] Hospital Gastroenterology and Nmchantell Matthew Cirrhos is Alcoholic (HCC) 2 Encounter Hepatology Tyrell Rodriguez M.D. [address] [place] [phone] Anesthesia Event Gastroenterology and Rl, 2 Hepatology Ervin Burgos M.D. [address] [place] [phone] Surgery Gastroenterology and Nmchantell Matthew ESOPHAG OGASTRODUODENOSCOPY 2 Hepatology Tyrell Rodriguez M.D. [address] [place] [phone] Scheduled Procedures Name Priority Associated Diagnoses Date/Time ESOPHAGOGASTRODUODENOSCOPY Cirrhosis Alc oholic (HCC) 03/20/2022 8:45 AM THINNER SPRAYER Hypertension Portal (HCC) documented as of this encounter Visit Diagnoses Not on filedocumented in this encounter Additional Health Concerns Assessment Noted Time PHQ-9 Depression Total Score: 10 10/06/2021 5:00 PM CD T documented as of this encounter Care Teams Summer Sessions Director Relationship Specialty Start Date End Date Elsewhere, Pcp PCP - General Family Medicine 03/10/20 11/30/21 [facility] [place] [facility] 08/25/21 Ervin Schroeder MD Referring Provider Family Medicine 03/24/[address] [place] [phone] documented as of this encounter
--- OUTSIDE RECORDS SUMMARY | 2022-02-10 09:35 | XMS_ITS | Encounter Summary ---
:1990 Author Organization [facility] Address [address] [place] [address] Care Team Providers Name Role Phone Elsewhere, Pcp Primary Care Provider Unavailable Encounter Details Date Type Department Care Team Description 10/15/2021 Documentation Department of Gastroenterology [place] in [place], Kaelyn Santillan M.D. 1025 [facility] [address] [place] [phone] [place], [place] [phone] Social History Tobacco Use Types Packs/Day [...] How often do you attend voodoo or Patient refused 2021 scientologist services? Do you belong to any clubs or No 02/10/2022 organizations such as voodoo groups, unions, fraVouchercloud or athletic groups, or school groups? 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 PSC ? HCC ? HPS ? Budd Chiari ? FHF ? Biliary Atresia ? HCV ? PBC ? CCA ? PoPH ? Hemo-chromatosis ? PNF ? PFIC ? HBV ? AIH ? Neuro Endocrine Tumor ? FAP ? [id number] ? HAT ? Cystic Fibrosis ? MEJIA [...] on her own after a trip to [place] last July 2020, but could not remember why she decided to. Prior to that she had 4 episodes of recurrent pancreatitis. She states that the 1st illness she had was after a trip to [place] when she had abdominal pain and she [...] saline contrast injection. Patent foramen ovale with ybint-rc-dnde shunt , 20 or greater bubbles seen [...] Transplant Matthew Jerome M .B.B.S., Lilian 1025 [place] [address] 2 Rain Reyes R.N. [address] [place] [phone] Telemedicine [facility] 2 Brigid noyola M.D. [address] [place] [phone] Office Visit [facility], 2 Medicine Vernell Perez [address] [place] [phone] Lab Laboratory Medicine Karin, 2 Adeline Gannon M.D., Ph.D. [address] [place] [phone] Lab Laboratory Medicine Karin, 2 Adeline Gannon M.D., Ph.D. [address] [place] [phone] Office Visit Transplant Karin, 2 Adeline Gannon M.D., Ph.D. [address] [place] [phone] Appointment Radiology Matthew Jerome 2, M.B.B.S., Lilian [address] [place] [phone] Appointment Gastroenterology and Adrianne, 2 Hepatology Yue Burciaga M.D. [address] [place] [address], [place] [phone] Office Visit Gastroenterology and Matthew Jerome 2 Hepatology Tyrell Rodriguez M.D. [address] [place] [address] [phone] Appointment Radiology LuisNew abdular 2 Tyrell Rodriguez M.D. [address] [place] [phone] Hospital Gastroenterology and Queenie Matthew Cirrhos is Alcoholic (HCC) 2 Encounter Hepatology Tyrell Rodriguez M.D. [address] [place] [phone] Anesthesia Event Gastroenterology and Rl, 2 Hepatology Ervin Burgos M.D. [address] [place] [phone] Surgery Gastroenterology and Queenie Matthew ESOPHAG OGASTRODUODENOSCOPY 2 Hepatology Tyrell Rodriguez M.D. [address] [place] [phone] Scheduled Procedures Name Priority Associated Diagnoses Date/Time ESOPHAGOGASTRODUODENOSCOPY Cirrhosis Alc oholic (HCC) 03/20/2022 8:45 AM IMCU NURSE Hypertension Portal (HCC) documented as of this encounter Visit Diagnoses Not on filedocumented in this encounter Additional Health Concerns Assessment Noted Time PHQ-9 Depression Total Score: 10 10/06/2021 5:00 PM CD T documented as of this encounter Care Teams Portable Machine Cutter Relationship Specialty Start Date End Date Elsewhere, Pcp PCP - General Family Medicine 03/10/20 11/30/21 [facility] [place] lab 08/25/21 Ervin Schroeder MD Referring Provider Family Medicine 03/24/[address] [place] [address] documented as of this encounter
--- OUTSIDE RECORDS SUMMARY | 2022-02-10 09:35 | XMS_ITS | Encounter Summary ---
:1990 Author Organization [facility] Address [address] [place] [address] Care Team Providers Name Role Phone Elsewhere, Pcp Primary Care Provider Unavailable Reason for Referral Outpatient (Routine) - Closed Specialty Diagnoses / Procedures Referred By Contact Refer red To Contact Diagnoses Cirrhosis Alcoholic (HCC) Abnormal Liver Function Test Ascites Pretransplant Recipient Evaluation Exam Preoperative Exam Warren Hernández M.D., [facility] [place] Procedures BMD Bone Density Spine Hips M.P.H. [address] [place] [address] Referral ID Status Reason Start Date Expiration Date Visits Requ ested Visits Authorized [id number] Closed 08/25/2021 08/25/2022 1 1 Reason for Visit Outpatient (Routine) - Closed Specialty Diagnoses / Procedures Referred By Contact Refer red To Contact Diagnoses Cirrhosis Alcoholic (HCC) Abnormal Liver Function Test Ascites Pretransplant Recipient Evaluation Exam Preoperative Exam Warren Hernández M.D., [facility] [place] Procedures BMD Bone Density Spine Hips M.P.H. [address] [place] [address] Referral ID Status Reason Start Date Expiration Date Visits Requ ested Visits Authorized [id number] Closed 08/25/2021 08/25/2022 1 1 Encounter Details Date Type Department Care Team Description 10/09/2021 Hospital Encounter Department of Edgar, Cirrhosi s Alcoholic (HCC); Radiology, Warren Schaefer M.D., Abnormal Angelica er Function Test; [facility], M.P.H. Ascites; in [place], [address] [place] [address] Pretransplant Recipient Evaluation Exam; [place], [place] Preoperative Exam [address] [address] [place] [phone] [place], [place] (Work) [phone] Social History Tobacco Use [...] you attend druze or Patient refused 2021 latter day services? 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 [address] [place] [phone] Telemedicine Transplant LinaFederico 2 Brigid noyola M.D. [address] [place] [phone] [facility] 2 Medicine Vernell Perez [address] [place] [address] Lab Laboratory Medicine Karin, 2 Adeline Gannon M.D., Ph.D. [address] [place] [phone] Lab Laboratory Medicine Karin, Olinda Gannon M.D., Ph.D. [address] [place] [phone] Office Visit Transplant Karin, 2 Adeline Gannon M.D., Ph.D. [address] [place] [phone] Appointment Radiology Matthew Jerome 2, M.B.B.S., Lilian [address] [place] [phone] Appointment Gastroenterology and Adrianne, 2 Hepatology Yue Burciaga M.D. [address] [place] [phone] Office Visit Gastroenterology and Matthew Jerome 2 Hepatology Vik RodriguezBLilian Bedolla [address] [place] [phone] Appointment Radiology Matthew Jerome 2 Tyrell Rodriguez M.D. [address] [place] [phone] Hospital Gastroenterology and Matthew Jerome Cirrhos is Alcoholic (HCC) 2 Encounter Hepatology Joshua RodriguezBSumaBLilian Bedolla [address] [place] [phone] Anesthesia Event Gastroenterology and Rl, 2 Hepatology Ervin Burgos M.D. [address] [place] [phone] Surgery Gastroenterology and Matthew Jerome ESOPHAG OGASTRODUODENOSCOPY 2 Hepatology Joshua RodriguezB.B.SLilian Moise [address] [place] [phone] Scheduled Procedures Name Priority Associated Diagnoses Date/Time ESOPHAGOGASTRODUODENOSCOPY Cirrhosis Alc oholic (HCC) 03/20/2022 8:45 AM CUPOLA REPAIRER Hypertension Portal (HCC) documented as of this [...] Mineral Density (BMD) analysis perf ormed on Zondle with serial number [id number]. ? FINDINGS: Left Hip: Femur Neck: BMD [...] Mineral Density (BMD) analysis perf ormed on Zondle with serial number [id number]. FINDINGS: Left Hip: Femur Neck: BMD = [...] documented as of this encounter Care Teams Sleever Relationship Specialty Start Date End Date Elsewhere, Pcp PCP - General Family Medicine 03/10/20 11/30/21 [facility] 08/25/21 Ervin Schroeder MD Referring Provider Family Medicine 03/24/[address] [place] [address] documented as of this encounter
--- OUTSIDE RECORDS SUMMARY | 2022-02-10 09:35 | XMS_ITS | Encounter Summary ---
:1990 Author Organization [facility] Address [address] [place] [address] Care Team Providers Name Role Phone Elsewhere, Pcp Primary Care Provider Unavailable Reason for Referral Behavioral Health (Routine) - Canceled Specialty Diagnoses / Procedures Referred By Contact Refer red To Contact Diagnoses Pain Leg Bilateral Radhames Neumann, [facility] Procedures Complex persistent pain program Ph.D., L.P. [address] [place] [phone] Referral ID Status Reason Start Date Expiration Date Visits V isits Requested Authorized [id number] Canceled 10/06/2021 10/06/2022 1 1 Reason for Visit Transplant (Routine) - Authorized Specialty Diagnoses / Procedures Referred By Contact Refer red To Contact Transplant Surgery / Diagnoses Cirrhosis Alcoholic (HCC) Abnormal Liver Function Test Ascites Pretransplant Recipient Evaluation Exam Preoperative Exam Warren Hernández, [facility] Transplant M.Jeri, M.P.H. [address] [place] [address] Referral ID Status Reason Start Date Expiration Date Visits V isisocrates Requested Authorized [id number] Authorized 08/25/2021 08/25/2022 1 1 Encounter Details Date Type Department Care Team Description 10/06/2021 Comprehensive Visit Warren Middleton M.D., M.P.H. [address] [place] [address] Pain Leg Bilateral (Primary Dx); [facility] Radhames Neumann, Ph.D., L.P. [address] [place] [phone] Cirrhosis Alcoholic (HCC); Transplantation and Abnormal Liver Function Test; Clinical Regeneration Ascite s; in [place], Pretransplant Recipient Evaluation Exam; [place] Preoperative Exam [address] [place] [address] [phone] Social History Tobacco Use Types Packs/Day Years [...] How often do you attend islam or Patient refused 2021 temple services? Do you belong to any clubs or No 02/10/2022 organizations such as islam groups, unions, fraternal [...] or the highest technical, or vocational p [facility] degree you have received? 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 [...] at age 19 Overuse of prescribed or jxuy-prq-mnxklqv medication: none. She notes she never runs [...] Transplant Matthew Jerome M .B.B.S., M.D. 10[address] [place] [address] 2 Rain Reyes R.N. [address] [place] [phone] Telemedicine Transplant LinaFederico 2 Brigid noyola M.D. [address] [place] [phone] Office Visit [facility] 2 Solitario Perez P.A.-C. [address] [place] [phone] Lab Laboratory Medicine Olinda Frazier M.D., Ph.D. [address] [place] [phone] Lab Laboratory Medicine Olinda Frazier M.D., Ph.D. [address] [place] [phone] Office Visit Transplant Karin, Olinda Gannon M.D., Ph.D. [address] [place] [phone] Appointment Radiology Matthew Jerome 2 YJoshuaBSumaBLilian Bedolla [address] [place] [phone] Appointment Gastroenterology and Adrianne, 2 Hepatology Yue Burciaga M.D. [address] [place] [phone] Office Visit Gastroenterology and [facility] 2 Hepatology Joshua RodriguezBSumaBLilian Bedolla [address] [place] [phone] Appointment Radiology Matthew Jerome 2 Elizabeth Rodriguez.B.B.Lilian [place] [address] [place] [address] [phone] [facility] Cirrhos is Alcoholic (HCC) 2 Encounter Hepatology Joshua RodriguezBSumaBLilian Bedolla [address] [place] [phone] Anesthesia Event Gastroenterology and Rl, 2 Hepatology Ervin Burgos M.D. [address] [place] [phone] Surgery Gastroenterology and Mousa, Matthew ESOPHAG OGASTRODUODENOSCOPY 2 Hepatology Tyrell Rodriguez M.D. [address] [place] [address] [phone] Scheduled Procedures Name Priority Associated Diagnoses Date/Time ESOPHAGOGASTRODUODENOSCOPY Cirrhosis Alc oholic (HCC) 03/20/2022 8:45 AM CLUB ROOM ATTENDANT Hypertension Portal (HCC) documented as of [...] documented as of this encounter Care Teams Mines Safety Engineer Relationship Specialty Start Date End Date Elsewhere, Pcp PCP - General Family Medicine 03/10/20 11/30/21 [facility] 08/25/21 Ervin Schroeder MD Referring Provider Family Medicine 03/24/[address] [place] [address] documented as of this encounter
--- OUTSIDE RECORDS SUMMARY | 2022-02-10 09:35 | XMS_ITS | Encounter Summary ---
:1990 Author Organization [facility] Address [address] [place] [address] Care Team Providers Name Role Phone Elsewhere, Pcp Primary Care Provider Unavailable Encounter Details Date Type Department Care Team Description 10/09/2021 Clinical Communication Ramirez [facility] , Brigid Hudson, Transplantation and Lilian Clinical Regeneration in [address] [place] [address] [place] [phone] [place] [address] [phone] Social History Tobacco Use Types Packs/Day Years [...] How often do you attend evangelical or Patient refused 2021 scientologist services? 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 [address] [place] [address] [phone] Telemedicine Transplant Ashtyn 2 Brigid noyola M.D. [address] [place] [phone] Office Visit Community Internal Neda, 2 Solitario Perez P.A.-C. [address] [place] [phone] Lab Laboratory Medicine Olinda Frazier M.D., Ph.D. [address] [place] [phone] Lab Laboratory Medicine Olinda Frazier M.D., Ph.D. [address] [place] [phone] Office Visit Transplant Karin, Olinda Gannon M.D., Ph.D. [address] [place] [phone] Appointment Radiology Matthew Jerome 2 YJoshuaBSumaBGraeme, Lilian [address] [place] [phone] Appointment Gastroenterology and Adrianne 2 Hepatology Yue Burciaga M.D. [address] [place] [phone] Office Visit Gastroenterology and Queenie Matthew 2 Hepatology Joshua RodriguezBSumaBLilian Bedolla [address] [place] [phone] Appointment Radiology Matthew Jerome 2 Jennifer M.B.B.Lilian [place] [address] [place] [phone] Hospital Gastroenterology and Queenie Matthew Cirrhos is Alcoholic (HCC) 2 Encounter Hepatology Vik RodriguezBLilian Bedolla [address] [place] [phone] Anesthesia Event Gastroenterology and Rl, 2 Hepatology Ervin Burgos M.D. [address] [place] [address] [phone] Surgery Gastroenterology and Mousa, Matthew ESOPHAG OGASTRODUODENOSCOPY 2 Hepatology Tyrell Rodriguez M.D. [address] [place] [address] [phone] Scheduled Procedures Name Priority Associated Diagnoses Date/Time ESOPHAGOGASTRODUODENOSCOPY Cirrhosis Alc oholic (HCC) 03/20/2022 8:45 AM PATTERN MAKER PROGRAMER Hypertension Portal (HCC) documented as of this encounter Visit Diagnoses Not on filedocumented in this encounter Additional Health Concerns Assessment Noted Time PHQ-9 Depression Total Score: 10 10/06/2021 5:00 PM CD T documented as of this encounter Care Teams Spreader Box Operator Relationship Specialty Start Date End Date Elsewhere, Pcp PCP - General Family Medicine 03/10/20 11/30/21 [facility] 08/25/21 Ervin Schroeder MD Referring Provider Family Medicine 03/24/[address] [place] [address] documented as of this encounter
--- OUTSIDE RECORDS SUMMARY | 2022-02-10 09:35 | XMS_ITS | Encounter Summary ---
:1990 Author Organization [facility] Address [address] [place] [address] Care Team Providers Name Role Phone Elsewhere, Pcp Primary Care Provider Unavailable Reason for Visit Reason Comments Follow up on caregiver plan Encounter Details Date Type Department Care Team Description 10/17/2021 Clinical Ramirez Santana, Follow up on Communication Center for Joel Gannon, caregiver plan Transplantation and L.I.C.S.W., Clinical Regeneration M.S.W. in [place], [facility] [address] [place], [place] [address] [facility] [address] [place], [place] [phone] (Work) [phone] Social History Tobacco Use Types Packs/Day Years [...] How often do you attend anabaptist or Patient refused 2021 mandaen services? Do you belong to any clubs or No 02/10/2022 organizations such as anabaptist groups, unions, fraResonant Sensors Inc[employer] or athletic groups, or school groups? [...] [facility] degree you have received? 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 ??in [place] Transplant Psychiatry (Pain Rehabilitation), 10/06/2021: - virtual [...] called the patient this afternoon (cell phone: [phone]) to attempt again follow up on her [...] Transplant Matthew Jerome M .B.B.S., M.D. 10[address] [place] [address] 2 Rain Reyes R.N. [address] [place] [phone] Telemedicine Transplant Ashtyn 2 Brigid noyola M.D. [address] [place] [phone] Office Visit [facility] Internal [facility], 2 Medicine Vernell Perez [address] [place] [phone] Lab Laboratory Medicine Olinda Frazier M.D., Ph.D. [address] [place] [phone] Lab Laboratory Medicine Olinda Frazier M.D., Ph.D. [address] [place] [phone] Office Visit Transplant Olinda Frazier M.D., Ph.D. [address] [place] [phone] Appointment Radiology Matthew Jerome 2 Tyrell Rodriguez M.D. [address] [place] [phone] Appointment Gastroenterology and Adrianne, 2 Hepatology Yue Burciaga M.D. [address] [place] [phone] Office Visit Gastroenterology and Matthew Jerome 2 Hepatology Tyrell Rodriguez M.D. [address] [place] [phone] Appointment Radiology Matthew Jerome 2 Tyrell Rodriguez M.D. [address] [place] [address] [phone] Hospital Gastroenterology and Matthew Jerome Cirrhos is Alcoholic (HCC) 2 Encounter Hepatology Tyrell Rodriguez M.D. [address] [place] [phone] Anesthesia Event Gastroenterology and lR, 2 Hepatology Ervin Burgos M.D. [address] [place] [address] [phone] Surgery Gastroenterology and Matthew Jerome ESOPHAG OGASTRODUODENOSCOPY 2 Hepatology Tyrell Rodriguez M.D. [address] [place] [phone] Scheduled Procedures Name Priority Associated Diagnoses Date/Time ESOPHAGOGASTRODUODENOSCOPY Cirrhosis Alc oholic (HCC) 03/20/2022 8:45 AM MILL SET UP Hypertension Portal (HCC) documented as of this encounter Visit Diagnoses Not on filedocumented in this encounter Additional Health Concerns Assessment Noted Time PHQ-9 Depression Total Score: 10 10/06/2021 5:00 PM CD T documented as of this encounter Care Teams Cut And Cover Line Worker Relationship Specialty Start Date End Date Elsewhere, Pcp PCP - General Family Medicine 03/10/20 11/30/21 [facility] 08/25/21 Ervin Schroeder MD Referring Provider Family Medicine 03/24/[address] [place] [phone] documented as of this encounter
--- OUTSIDE RECORDS SUMMARY | 2022-02-10 09:35 | XMS_ITS | Encounter Summary ---
:1990 Author Organization [facility] Address [address] [place] [address] Care Team Providers Name Role Phone Elsewhere, Pcp Primary Care Provider Unavailable Reason for Visit Reason Comments Edema Encounter Details Date Type Department Care Team Description 10/13/2021 Nurse Triage [facility] Department of Nola Polanco R .N. [facility] Res[facility] in [place], [place] [address] [place] [phone] Social History Tobacco Use Types Packs/Day [...] you attend taoist or Patient refused 2021 scientology services? 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 [address] [place] [address] [phone] 2 Rain Reyes R.N. [address] [place] [phone] Telemedicine Transplant LinaFederico 2 Brigid noyola M.D. [address] [place] [phone] Office Visit [facility], 2 Medicine Farida Perez-C. [address] [place] [phone] Lab Laboratory Medicine Karin, 2 Adeline Gannon M.D., Ph.D. [address] [place] [phone] Lab Laboratory Medicine Olinda Frazier M.D., Ph.D. [address] [place] [phone] Office Visit Transplant Olinda Frazier M.D., Ph.D. [address] [place] [phone] Appointment Radiology Matthew Jerome 2, M.B.B.S., M.D. [address] [place] [address] [phone] Appointment Gastroenterology and Adrianne, 2 Hepatology Yue Burciaga M.D. [address] [place] [phone] Office Visit Gastroenterology and Matthew Jerome 2 Hepatology Joshua RodriguezBSumaBLilian Bedolla [address] [place] [address] [phone] Appointment Radiology Matthew Jerome 2 Vik RodriguezBLilian Bedolla [address] [place] [phone] Hospital Gastroenterology and Matthew Jerome Cirrhos is Alcoholic (HCC) 2 Encounter Hepatology Joshua RodriguezBSumaBLilian Bedolla [address] [place] [phone] Anesthesia Event Gastroenterology and Rl, 2 Hepatology Ervin Burgos M.D. 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
--- OUTSIDE RECORDS SUMMARY | 2022-02-10 09:35 | XMS_ITS | Encounter Summary ---
:1990 Author Organization [facility] Address [address] [place] [address] Care Team Providers Name Role Phone Elsewhere, Pcp Primary Care Provider Unavailable Reason for Visit Reason Comments Medication Question Encounter Details Date Type Department Care Team Description 10/13/2021 Nurse Triage Department of [facility] Jolynn Villarreal M edication Question Medicine, [facility], in [place], [place] (Work) [address] [phone] Social History Tobacco Use Types Packs/Day Years [...] How often do you attend mandaen or Patient refused 2021 voodoo services? 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 [address] [place] [phone] Telemedicine Transplant LinaDemarcus 2 Brigid noyola M.D. [address] [place] [phone] Office Visit Community Internal [facility], 2 Medicine Vernell Perez [address] [place] [phone] Lab Laboratory Medicine Karin, 2 Adeline Gannon M.D., Ph.D. [address] [place] [phone] Lab Laboratory Medicine Karin, 2 Adeline Gannon M.D., Ph.D. [address] [place] [phone] Office Visit Transplant Karin, 2 Adeline Gannon M.D., Ph.D. [address] [place] [phone] Appointment Radiology Matthew Jerome 2, M.B.B.S., Lilian [address] [place] [phone] Appointment Gastroenterology and Adrianne, 2 Hepatology Yue Burciaga M.D. [address] [place] [address] [phone] Office Visit Gastroenterology and Matthew Jerome 2 Hepatology Tyrell Rodriguez M.D. [address] [place] [phone] Appointment Radiology Matthew Jerome 2 YTyrell M.D. [address] [place] [phone] Hospital Gastroenterology and Queenie Matthew Cirrhos is Alcoholic (HCC) 2 Encounter Hepatology Tyrell Rodriguez M.D. [address] [place] [phone] Anesthesia Event Gastroenterology and Rl, 2 Hepatology Ervin Burgos M.D. [address] [place] [address] [phone] Surgery Gastroenterology and Queenie Matthew ESOPHAG OGASTRODUODENOSCOPY 2 Hepatology Tyrell Rodriguez M.D. 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
--- OUTSIDE RECORDS SUMMARY | 2022-02-10 09:35 | XMS_ITS | Encounter Summary ---
:1990 Author Organization [facility] Address [address] [place] [address] Care Team Providers Name Role Phone Elsewhere, Pcp Primary Care Provider Unavailable Reason for Referral Outpatient (Routine) - Closed Specialty Diagnoses / Procedures Referred By Contact Refer red To Contact Diagnoses Cirrhosis Alcoholic (HCC) Abnormal Liver Function Test Ascites Pretransplant Recipient Evaluation Exam Preoperative Exam Warren Hernández M.D., [facility] Procedures Short renal clearance: Iothalamate (Renal Studies Unit) M.P.H. [address] [place] [address] Referral ID Status Reason Start Date Expiration Date Visits Requ ested Visits Authorized [id number] Closed 08/25/2021 08/25/2022 1 1 Reason for Visit Outpatient (Routine) - Closed Specialty Diagnoses / Procedures Referred By Contact Refer red To Contact Diagnoses Cirrhosis Alcoholic (HCC) Abnormal Liver Function Test Ascites Pretransplant Recipient Evaluation Exam Preoperative Exam Warren Hernández M.D., [facility] Procedures Short renal clearance: Iothalamate (Renal Studies Unit) M.P.H. [address] [place] [address] Referral ID Status Reason Start Date Expiration Date Visits Requ ested Visits Authorized [id number] Closed 08/25/2021 08/25/2022 1 1 Encounter Details Date Type Department Care Team Description 10/03/2021 Hospital Encounter Department of Edgar, Travosi s Alcoholic (HCC); Laboratory Medicine Warren Schaefer M.D., Randa [facility] Liver Function Test; and Pathology, M.P.H. Ascites; [place] [address] [place] [address] Pretransplant Recipient Evaluation Exam; Building, in [place], [place] Preoperative E xam [address] [phone] [address] [facility] (Work) [place], [place] [phone] (Fax) [phone] Social History Tobacco Use Types Packs/Day Years [...] you attend restorationism or Patient refused 2021 mandaeism services? 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 [address] [place] [phone] Telemedicine [facility] 2 Brigid noyola M.D. [address] [place] [phone] Office Visit [facility] Neda, 2 Medicine Vernell Perez [address] [place] [phone] Lab Laboratory Medicine Karin, 2 Adeline Gannon M.D., Ph.D. [address] [place] [address] [phone] Lab Laboratory Medicine Karin, 2 Adeline Gannon M.D., Ph.D. [address] [place] [address] [phone] Office Visit Transplant Karin, 2 Adeline Gannon M.D., Ph.D. [address] [place] [phone] Appointment Radiology Matthew Jerome 2 YVikBGraeme, Lilian [address] [place] [phone] Appointment Gastroenterology and Adrianne, 2 Hepatology Yue Burciaga M.D. [address] [place] [phone] Office [facility] 2 Hepatology Vik RodriguezBLilian Bedolla [address] [place] [phone] Appointment Radiology Matthew Jerome 2 YJoshuaB.B.Lilian [place] [address] [place] [phone] Hospital Gastroenterology and [facility] Cirrhos is Alcoholic (HCC) 2 Encounter Hepatology Elizabeth Rodriguez.B.B.Lilian [place] [address] [place] [phone] Anesthesia Event Gastroenterology and Rl, 2 Hepatology Ervin Burgos M.D. [address] [place] [phone] Surgery Gastroenterology and [facility] ESOPHAG OGASTRODUODENOSCOPY 2 Hepatology Joshua RodriguezB.B.Lilian Stockton [address] [place] [address] [phone] Scheduled Orders Name Type Priority Associated Diagnoses Order S chedule Short renal clearance: Procedures Routine Cirrhosis Alcoholi c Once for 1 Occurrences Iothalamate (Renal (HCC) starting 10/03/2021 Studies Unit) Abnormal Liver until 2021 Function Test Ascites Pretransplant Recipient Evaluation Exam Preoperative Exam Scheduled Procedures Name Priority Associated Diagnoses Date/Time ESOPHAGOGASTRODUODENOSCOPY Cirrhosis Alc oholic (HCC) 03/20/2022 8:45 AM 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 in a manner consistent with CLIA requirements. This test has not been cleared or approved by the [place] d and Drug Administration. Specimen Anatomical Collection Method Collection Time Receive d Time (Source) Location / / Volume Laterality Varies (Blood, 10/03/2021 11:18 2 Venous) AM CDT 12:59 PM CDT Narrative [facility] - 10/06/2021 2:59 PM CDT Specimen Information: Specimen ID: [id number] Specimen Type: Varies Specimen Collection Start Date: 11:18 AM Specimen Received Date: 10/03/2021 12:59 PM Specimen ID: [id number] Specimen Type: Varies Specimen Collection Start Date: 12:07 PM Specimen Received Date: 10/03/2021 12:59 PM Specimen ID: [id number] Specimen Type: Varies Specimen Collection Start Date: 12:41 PM Specimen Received Date: 10/03/2021 12:59 PM Specimen ID: [id number] Specimen Type: Varies Specimen Collection Start Date: 12:10 PM Specimen Received Date: 10/03/2021 12:59 PM Specimen ID: [id number] Specimen Type: Varies Specimen Collection Start Date: 12:43 PM Specimen Received Date: 10/03/2021 12:59 PM Warren Hernández M.D., M.P.H. LAB BLOOD NON ADD-ON Performing Organization Address City/State/ZIP Code Phon e Number [facility] - [address] [place], [place] [address] [place] [address] [facility] [address] documented in this [...] dose documented in this encounter Care Teams Leaf Coverer Relationship Specialty Start Date End Date Elsewhere, Pcp PCP - General Family Medicine 03/10/20 11/30/21 [facility] [place] [facility] 08/25/21 Ervin Schroeder MD Referring Provider Family Medicine 03/24/21 [facility] [address] [place] [address] documented as of this encounter
--- OUTSIDE RECORDS SUMMARY | 2022-02-10 09:35 | XMS_ITS | Encounter Summary ---
:1990 Author Organization [facility] Address [address] [place] [address] Care Team Providers Name Role Phone Elsewhere, Pcp Primary Care Provider Unavailable Encounter Details Date Type Department Care Team Description 10/08/2021 Clinical Communication Department of [facility] in [place], [place] L.P.N. [address] [facility] [address] [place] [address] [place], [place] [phone] Social History Tobacco Use Types Packs/Day [...] How often do you attend jewish or Patient refused 2021 advent services? 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 [address] [place] [phone] 2 Rain Reyes R.N. [address] [place] [phone] Telemedicine Transplant Ashtyn 2 Brigid noyola M.D. [address] [place] [phone] Office Visit Community Internal [facility], 2 Medicine Vernell Perez [address] [place] [phone] Lab Laboratory Medicine Karin, 2 Adeline Gannon M.D., Ph.D. [address] [place] [phone] Lab Laboratory Medicine Karin, 2 Adeline Gannon M.D., Ph.D. [address] [place] [phone] Office Visit Transplant Karin, 2 Adeline Gannon M.D., Ph.D. [address] [place] [phone] Appointment Radiology Matthew Jerome 2, M.B.B.SSuma, Lilian [address] [place] [phone] Appointment Gastroenterology and Adrianne, 2 Hepatology Yue Burciaga M.D. [address] [place] [phone] Office Visit Gastroenterology and Matthew Jerome 2 Hepatology Joshua RodriguezB.B.SLilian Moise [address] [place] [address] [phone] Appointment Radiology Matthew Jerome 2 YVikBGraeme, Lilian [address] [place] [address] [phone] Hospital Gastroenterology and Inchantell Matthew Cirrhos is Alcoholic (HCC) 2 Encounter Hepatology Tyrell Rodriguez M.D. [address] [place] [address] [phone] Anesthesia Event Gastroenterology and Rl, 2 Hepatology Ervin Burgos M.D. 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
--- OUTSIDE RECORDS SUMMARY | 2022-02-10 09:35 | XMS_ITS | Encounter Summary ---
:1990 Author Organization [facility] Address [address] [place] [address] Care Team Providers Name Role Phone Elsewhere, Pcp Primary Care Provider Unavailable Encounter Details Date Type Department Care Team Description 10/07/2021 Hospital Encounter Department of Rut Hernández s Alcoholic (HCC); Pulmonary Medicine Warren Schaefer M.D., Abnorm al Liver Function Test; in [facility] Ascites; [place] [address] [place] [address] Pretransplant Recipient Evaluation Exam; [address] [place], [place] Preoperative Exam [place], [place] [phone] Social History Tobacco Use Types Packs/Day [...] you attend anabaptist or Patient refused 2021 cheondoism services? Do you belong to any clubs or No 02/10/2022 organizations such as anabaptist groups, unions, fraLaticínios Bom Gosto/LBR or athletic groups, or school groups? 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 [address] [place] [phone] Telemedicine Transplant LinaFederico 2 Brigid noyola M.D. [address] [place] [phone] Office Visit Community Internal Neda, 2 Solitario Perez P.A.-C. [address] [place] [phone] Lab Laboratory Medicine Karin, 2 Adeline Gannon M.D., Ph.D. [address] [place] [phone] Lab Laboratory Medicine Olinda Frazier M.D., Ph.D. [address] [place] [phone] Office Visit Transplant Karin, Olinda Gannon M.D., Ph.D. [address] [place] [phone] Appointment Radiology Matthew Jerome 2 YJoshuaB.BLilian Bedolla [address] [place] [phone] Appointment Gastroenterology and Adrianne, 2 Hepatology Yue Burciaga M.D. [address] [place] [phone] Office Visit Gastroenterology and Matthew Jerome 2 Hepatology Joshua RodriguezBSumaBLilian Bedolla [address] [place] [phone] Appointment Radiology Matthew Jerome 2 YJoshuaB.BLilian Bedolla [address] [place] [address] [phone] Hospital Gastroenterology and Matthew Jerome Cirrhos is Alcoholic (HCC) 2 Encounter Hepatology Joshua RodriguezB.B.Lilian Stockton [address] [place] [phone] Anesthesia Event Gastroenterology and Rl, 2 Hepatology Ervin Burgos M.D. [address] [place] [phone] Surgery Gastroenterology and Queenie, Matthew ESOPHAG OGASTRODUODENOSCOPY 2 Hepatology Tyrell Rodriguez M.D. [address] [place] [phone] Scheduled Procedures Name Priority Associated Diagnoses Date/Time ESOPHAGOGASTRODUODENOSCOPY Cirrhosis Alc oholic (HCC) 03/20/2022 8:45 AM TOWER SUPERVISOR Hypertension Portal (HCC) documented as of [...] SUITE FEV1% 118 % LLANES [place]ZE SUITE [id number] 2.45 L [place] SUITE FEV1/FVC 90 % [place] SUITE FEV1/FVCLLN 73 % [place] [place] SUITE FEF 25-75 5.30 L/sec [place]AN[facility] [place] SUITE PIM05-30% 154 % [place]ANES [place] SUITE [id number] 2.20 L/sec [place]AN[facility] [place] SUITE SVC 4.19 L LLAENS BREEZE SUITE RV 1.17 L [place] SUITE RVULN 2.33 L [place]AN[facility] [place] SUITE TLC 5.36 L [place]AN[place] SUITE TLC% 111 % [place] [place] SUITE TLCLLN 3.47 L [place] SUITE RV/TLC 22 % [place] [place] SUITE RV/TLC% 72 % [place] [place] SUITE RV/TLCuln 44 % [facility] [place] SUITE DLCO 16.63 ml/min/mmHg [facility] [place] SUITE DLCO% 77 % [facility] [place] SUITE DLCOlln 15.76 ml/min/mmHg [facility] SUITE DLCOc 20.09 ml/min/mmHg [facility] DLCOc% 94 % [facility] SUITE VA 5.[address] [facility] SUITE VA% 115 % [facility] VAlln 3.76 L [facility] Height 159.00 [facility] Weight in Kg 59.70 [facility] BMI 23.6 [facility] Specimen (Source) Anatomical Collection Method Collection Time Re ceived Time Location / / Volume Laterality 10/07/2021 2:32 PM CDT Impressions [facility] - 10/10/2021 8:25 AM C DT TECHNICAL [...] Phon e Number [facility] NA documented in this encounter Visit Diagnoses Diagnosis Cirrhosis Alcoholic (HCC) Abnormal Liver Function Test Ascites Pretransplant Recipient Evaluation Exam Preoperative Exam Cirrhosis Alcoholic (HCC) Cirrhosis Alcoholic (HCC) Hypertension Portal (HCC) documented in this encounter Additional Health Concerns Assessment Noted Time PHQ-9 Depression Total Score: 10 10/06/2021 5:00 PM CD T documented as of this encounter Care Teams Senior Compliance Analyst Relationship Specialty Start Date End Date Elsewhere, Pcp PCP - General Family Medicine 03/10/20 11/30/21 [facility] [place] [facility] 08/25/21 Ervin Schroeder MD Referring Provider Family Medicine 03/24/[address] [place] [phone] documented as of this encounter
--- OUTSIDE RECORDS SUMMARY | 2022-02-10 09:35 | XMS_ITS | Encounter Summary ---
:1990 Author Organization [facility] Address [address] [place] [address] Care Team Providers Name Role Phone Elsewhere, Pcp Primary Care Provider Unavailable Reason for Visit Reason Comments Fatigue Encounter Details Date Type Department Care Team Description 10/17/2021 Nurse Triage Department of Laura Flor, Fatigue Medicine, [facility], R.N. in [facility] [address] [facility] [address] [place], [place] [phone] Social History Tobacco Use Types Packs/Day Years [...] you attend congregation or Patient refused 2021 islam services? 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 States overall does not feelwell, has been sleeping non-stop. States is not [...] PCP /SDC tomorrow, or could even call [facility] tomorrow to make appointment, patient states, I'm [...] next 24 hours. Call your doctor (or BUNDLES HANGER/PA) when the office opens and make an [...] 3 days Protocols used: WEAKNESS (GENERALIZED) AND [id number] documented in this encounter Plan of Treatment Upcoming Encounters Date Type Specialty Care Team Description Virtual Visit Transplant Matthew Jerome M .B.B.S., MJules [address] [place] [address] 2 Rain Reyes R.N. [address] [place] [address] Telemedicine Transplant LinaFederico 2 Brigid noyola M.D. [address] [place] [phone] Office Visit Community Internal Neda, 2 Medicine Vernell Perez 300 [facility] [place] [address] Lab Laboratory Medicine Olinda Frazier M.D., Ph.D. [address] [place] [phone] Lab Laboratory Medicine Karin, 2 Adeline Gannon M.D., Ph.D. [address] [place] [phone] Office Visit Transplant Karin, Olinda Gannon M.D., Ph.D. [address] [place] [phone] Appointment Radiology Matthew Jerome 2 Y M.B.B.SSuma, MJules [address] [place] [phone] Appointment Gastroenterology and Adrianne, 2 Hepatology Yue Burciaga M.D. [address] [place] [phone] Office Visit Gastroenterology and Matthew Jerome 2 Hepatology Elizabeth Rodriguez.B.B.SLilian Moise [address] [place] [phone] Appointment Radiology Matthew Jerome 2 Y M.B.B.SLilian Moise [address] [place] [phone] Hospital [facility] Cirrhos is Alcoholic (HCC) 2 Encounter Hepatology Tyrell Rodriguez M.D. [address] [place] [phone] Anesthesia Event Gastroenterology and Rl, 2 Hepatology Ervin Burgos M.D. [address] [place] [phone] Surgery [facility] ESOPHAG OGASTRODUODENOSCOPY 2 Hepatology Tyrell Rodriguez M.D. 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 [place] lab 08/25/21 Ervin Schroeder MD Referring Provider Family Medicine 03/24/[address] [place] [phone] documented as of this encounter
--- OUTSIDE RECORDS SUMMARY | 2022-02-10 09:36 | XMS_ITS | Encounter Summary ---
:1990 Author Organization [facility] Address [address] [place] [address] Care Team Providers Name Role Phone Elsewhere, Pcp Primary Care Provider Unavailable Reason for Visit Transplant (Routine) - Closed Specialty Diagnoses / Procedures Referred By Contact Refer red To Contact Transplant Surgery / Diagnoses Cirrhosis Alcoholic (HCC) Abnormal Liver Function Test Ascites Pretransplant Recipient Evaluation Exam Preoperative Exam Warren Hernández, [facility] Transplant Lilian, M.P.H. [address] [place] [address] Referral ID Status Reason Start Date Expiration Date Visits Requ ested Visits Authorized [id number] Closed 08/25/2021 08/25/2022 1 1 Encounter Details Date Type Department Care Team Description 09/30/2021 Clinical Support Warren Carter M.D., M.P.H. [address] [place] [address] Cirrhosis Alcoholic (HCC); Center for Joel Tan L.I.C.S.W., M.S.W. [address] [place] [address] [place] [address] Abnormal Liver Function Test; Transplantation and Ascites; Clinical Regeneration Pretra nsplant Recipient Evaluation Exam; in [facility] Preoperative Exam [address] [place] [phone] Social History Tobacco Use Types Packs/Day Years [...] you attend adventist or Patient refused 2021 presybeterian services? 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 - 09/30/2021 10:30 AM CDT Transplant Psychosocial Assessment DEMOGRAPHIC INFORMATION SUBJECTIVE Referral Source: Dr. Warren Hernández, Liver Transplant team Patient seen for: pre-transplant of liver Persons present: Patient, who prefers to be called, Christelle, and her mother, Parris Knight. Previous Psychosocial Assessment : No Patient's primary care provider/clinic: Dr. Migue Schroeder at [facility] in [place], [place]. Primary language: Khmer For this interview, the patient utilized language services: No Citizenship US citizen: Yes [place] resident: Yes Race/Ethnicity: Race: White Ethnicity: [place] Citizen, Descent Disclaimer: ?? The patient and her [...] understanding. ?? The role of the Transplant Chairman & Co Founder was explained. ?? Selection Committee: The patient [...] of origin: The patient was raised in [place], [place]. Her parents when she was 20 years old. Her mother remarried. The patient calls her step- father, Siva, her bonus father. The patient's mother and step-father live in [place], [place]. The patient's father did not remarry. 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 She stopped working in January 2021 as she was advised to no longer work due to her medical condition. Patient's plan for extended time off for recovery: The patient does not currently have a source of income. Boyfriend's work: The patient's boyfriend works tractor operator as a paint vamp liner for a powder coating company called [employer]. Spiritual Practices/Muslim/Culture Spirituality / Muslim / Culture: The patient stated she does not have a presybeterian preference. The patient was informed of the availability of Electric Vehicle Electrician Services at [facility]. History The patient stated she has [...] a nurse come into her home from [facility] every (phone: [phone]). The nurse sets up the patient's medications [...] The patient lives approximately one hour from [place]. She would arrive via private vehicle. Relocation Plan: The patient was provided with information on the [facility]. Shewas also provided with information on the Cross Country Coach Services at [facility] who can assist with answering questions about local lodging accommodations. We did not have an opportunity to discuss these in detail today due to the time constraints of our interview, however I have encouraged the patient tocall me should she have additional questions. FINANCES/INSURANCE Primary insurance: [facility] BLUE PLUS HMO ([place] Medicaid) Secondary/Supplemental insurance: None Does patient have a benefit for travel, lodging and/or meals through insurance? The patient does notknow. I advised her to contact [facility] Furn[facility] Puncher to inquire about her eligibility for benefits. Household Information Number of persons in household: Two (patient and her boyfriend) Type of housing: Rent Source of household income: The patient does not currently have a source of income. She stated she is not receiving any assistance (such as food support) through her [facility] Furnace Puncher office. She has not yet applied for assistance. The patient's boyfriend has income through his tractor operator employment wages. Current Financial Concerns: The patient [...] including the application process. Pharmacy Pharmacy coverage: [facility] BLUE [facility]US HMO ([place] Medicaid) Current medication(s) received through prescription assistance [...] advance directive. I provided the patient with [facility]'s blank advance directive booklet and provided her with education on advance directives. I encouraged the patient to provide a copy of an advance directive to [facility], should she completed one in the [...] Service and had to meet with a property disposal officer. The patient was asked how she [...] with pain. The patient showed me her [place] Medical Cannabis Patient Registration Verification Card on her cell phone. She stated she started using medical cannabis in May 2021 and that it was prescribed for chronic leg pain which she states it is either neuropathy brought on by cirrhosis, mcc effects brought on by drugs used to [...] have a couple of puffs. The patient's [place] Medical Cannabis [place] number is: [id number]. Family History: Father - alcohol (past, not currently of concern) Labs: Ethyl Glucuronide screen: 09/30/2021 - negative Urine Drug screen: 09/30/2021 - presumptive positive for benzodiazepines and THC. PEth: 09/30/2021 - in process ASSESSMENT / PLAN DISCUSSION Met with the patient and her mother at the [place] [address] [facility] this morning. The patient is registered for [...] 16 or 17 and has had a [employer] Cannabis card since May 2021. Capability of [...] The patient was advised to contact her [facility] social science teacher office to determine if she has a [...] - [facility] brochure ([id number]) - Patient's Guide to [facility] ([id number]) - Information for Caregivers: Taking Care of Yourself ([id number]) - Preparing for Transplant: Body, Mind, and Spirit ([id number]) - [facility] Advance directive booklet - [facility] financial assistance resource guide - What to Expect as a Transplant Caregiver brochure ([id number]) - [facility] brochure - [employer] fundraising brochure - National Foundation for Transplants fundraising brochure - [facility]: 5 Ways to Connect ([id number]) PLAN -The patient will continue through the [...] Transplant Matthew Jerome M .B.B.S., M.D. [address] [place] [address] 2 Rain Reyes R.N. [address] [place] [address] [phone] Telemedicine Transplant Ashtyn 2 Brigid noyola M.D. [address] [place] [phone] Office Visit Community Internal Deanovic, 2 Medicine Vernell Perez [address] [place] [address] [place] [phone] Lab Laboratory Medicine Karin, 2 Adeline Gannon M.D., Ph.D. [address] [place] [phone] Lab Laboratory Medicine Karin, 2 Adeline Gannon M.D., Ph.D. [address] [place] [phone] Office Visit Transplant Karin, 2 Adeline Gannon M.D., Ph.D. [address] [place] [phone] Appointment Radiology Matthew Jerome 2 Y, M.B.B.SSuma, MJules [address] [place] [phone] Appointment Gastroenterology and Adrianne, 2 Hepatology Yue Burciaga M.D. [address] [place] [address] [phone] Office Visit Gastroenterology and Matthew Jerome 2 Hepatology Jennifer M.B.B.SSuma, Lilian [address] [place] [phone] Appointment Radiology Matthew Jerome 2 Y M.B.B.SLilian Moise [address] [place] [phone] Hospital Gastroenterology and Mousa, Matthew Cirrhos is Alcoholic (HCC) 2 Encounter Hepatology Tyrell Rodriguez M.D. [address] [place] [phone] Anesthesia Event Gastroenterology and Rl, 2 Hepatology Ervin Burgos M.D. [address] [place] [address] [phone] Surgery Gastroenterology and Tnusa, Matthew ESOPHAG OGASTRODUODENOSCOPY 2 Hepatology Tyrell Rodriguez M.D. 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 Hypertension Portal (HCC) documented as of this encounter Visit Diagnoses Diagnosis Cirrhosis Alcoholic (HCC) Abnormal Liver Function Test Ascites Pretransplant Recipient Evaluation Exam Preoperative Exam Cirrhosis Alcoholic (HCC) Cirrhosis Alcoholic (HCC) Hypertension Portal (HCC) documented in this encounter Care Teams Bender Machine Operator Relationship Specialty Start Date End Date Elsewhere, Pcp PCP - General Family Medicine 03/10/20 11/30/21 [facility] [place] lab 08/25/21 Ervin Schroeder MD Referring Provider Family Medicine 03/24/[address] [place] [address] documented as of this encounter
--- OUTSIDE RECORDS SUMMARY | 2022-02-10 09:36 | XMS_ITS | Encounter Summary ---
:1990 Author Organization [facility] Address [address] [place] [address] Care Team Providers Name Role Phone Elsewhere, Pcp Primary Care Provider Unavailable Reason for Referral Transplant (Routine) - Authorized Specialty Diagnoses / Procedures Referred By Contact Refer red To Contact Transplant Surgery / Matthew Jerome [place] [facility] M.B.B.S., M.D. [address] [place] [phone] Referral ID Status Reason Start Date Expiration Date Visits V isits Requested Authorized [id number] Authorized 10/27/2021 10/27/2022 1 1 Scheduling Instructions May be phone or video- patient preferenc e. Scheduled in [place]. Thanks Transplant (Routine) - Authorized Specialty Diagnoses / Procedures Referred By Contact Refer red To Contact Transplant Surgery / Matthew Jerome [place] [facility] eg[facility] Transplant M.B.B.S., M.D. [address] [place] [phone] Referral ID Status Reason Start Date Expiration Date Visits V isits Requested Authorized [id number] Authorized 10/27/2021 10/27/2022 1 1 Scheduling Instructions [place] Scheduled in [place]. Thanks Reason for Visit Reason Comments Patient Education 1:1 education Encounter Details Date Type Department Care Team Description 10/01/2021 Education Warren Carter M.D., M.P.H. [address] [place], [place] [phone] Cirrhosis Alcoholic (HCC); [place] [facility], Chano Engle, R.N., C.C.T.C. Abnormal Liver Function Test; Transplantation and Ascites; Clinical Regeneration in Pre transplant Recipient Evaluation Exam; [employer], [place] Preoperative Exam [address] [place] [phone] Social History Tobacco Use Types Packs/Day [...] you attend muslim or Patient refused 2021 mormonism services? Do [...] or the highest technical, or vocational [email or web address] degree you have received? 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 All questions were answered. Catia Carias has [...] SmartSet Addendum Note - Matthew Jerome M.B.B.S., MJules - 10/01/2021 8:00 AM CDT Addended by: MATTHEW JEROME on: 10/27/2021 05:38 PM Modules accepted: Orders documented in this encounter Plan of Treatment Upcoming Encounters Date Type Specialty Care Team Description Virtual Visit Transplant Matthew Jerome M .B.B.S., M.D. [address] [place] [phone] 2 Rain Reyes R.N. [address] [place] [address] [phone] Telemedicine Transplant LinaFederico 2 Brigid noyola M.D. [address] [place] [phone] Office Visit Community Internal Carlos, 2 Medicine Carlotta PerezCSuma [address] [place] [phone] Lab Laboratory Medicine Karin, 2 Adeline Gannon M.D., Ph.D. [address] [place] [phone] Lab Laboratory Medicine Olinda Frazier M.D., Ph.D. [address] [place] [phone] Office Visit Transplant Olinda Frazier M.D., Ph.D. [address] [place] [phone] Appointment Radiology Matthew Jerome 2, M.B.B.S., M.D. [address] [place] [address] [phone] Appointment Gastroenterology and Adrianne, 2 Hepatology Yue Burciaga M.D. [address] [place] [phone] Office Visit Gastroenterology and Matthew Jerome 2 Hepatology Joshua RodriguezBSumaBLilian Bedolla [address] [place] [phone] Appointment Radiology Matthew Jerome 2 Vik RodriguezBLilian Bedolla [address] [place] [phone] Hospital Gastroenterology and Matthew Jerome Cirrhos is Alcoholic (HCC) 2 Encounter Hepatology Joshua RodriguezBSumaBLilian Bedolla [address] [place] [phone] Anesthesia Event Gastroenterology and Rl, 2 Hepatology Ervin Burgos M.D. [address] [place] [phone] Surgery Gastroenterology and Matthew Jerome ESOPHAG OGASTRODUODENOSCOPY 2 Hepatology Joshua RodriguezB.BGraeme, Lilian [address] [place] [phone] Scheduled Orders Name Type Priority Associated [...] 01/27/2023 Ascites Pretransplant Recipient Evaluation Exam Phosphatidylethanol Lab Routine Cirrhosis Alcoholic E xpected: Confirmation (HCC) 01/05/2022, Abnormal Liver Expires: 01/02 Function Test Ascites Pretransplant Recipient Evaluation Exam Preoperative Exam Scheduled Procedures Name Priority Associated Diagnoses Date/Time ESOPHAGOGASTRODUODENOSCOPY Cirrhosis Alc oholic (HCC) 03/20/2022 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- [place] lab 08/25/21 Ervin Schroeder MD Referring Provider Family Medicine 03/24/[address] [place] [phone] documented as of this encounter
--- OUTSIDE RECORDS SUMMARY | 2022-02-10 09:36 | XMS_ITS | Encounter Summary ---
:1990 Author Organization [facility] Address [address] [place] [address] Care Team Providers Name Role Phone Elsewhere, Pcp Primary Care Provider Unavailable Reason for Visit Reason Comments Leg Pain Encounter Details Date Type Department Care Team Description 09/28/2021 Nurse Triage Department of [facility] Naila Walters, [place] Leg Pain Medicine, [facility], in [address] [place], [place] [address] [place] [phone] [place] [address] [phone] Social History Tobacco Use Types Packs/Day Years [...] you attend moravian or Patient refused 2021 holiness services? 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 documented in this encounter Plan of Treatment Upcoming Encounters Date Type Specialty Care Team Description Virtual Visit Transplant Matthew Jerome M .B.B.S., Lilian [address] [place] [phone] 2 Rain Reyes R.N. [address] [place] [phone] Telemedicine [facility] 2 Brigid noyola M.D. [address] [place] [phone] Office Visit Community Internal [facility], 2 Medicine Vernell Perez [address] [place] [phone] Lab Laboratory Medicine Karin, 2 Adeline Gannon M.D., Ph.D. [address] [place] [phone] Lab Laboratory Medicine Karin, 2 Adeline Gannon M.D., Ph.D. [address] [place] [phone] Office Visit Transplant Karin, 2 Adeline Gannon M.D., Ph.D. [address] [place] [phone] Appointment Radiology Matthew Jerome 2, M.B.B.S., M.D. [address] [place] [phone] Appointment Gastroenterology and Doll, 2 Hepatology Yue Burciaga M.D. [address] [place] [address] Office Visit Gastroenterology and Matthew Jerome 2 Hepatology Tyrell Rodriguez M.D. [address] [place] [phone] Appointment Radiology LuisMatthew abdul 2 Tyrell Rodriguez M.D. [address] [place] [phone] Hospital Gastroenterology and Matthew Jerome Cirrhos is Alcoholic (HCC) 2 Encounter Hepatology Tyrell Rodriguez M.D. [address] [place] [phone] Anesthesia Event Gastroenterology and Rl, 2 Hepatology Ervin Burgos M.D. 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
--- OUTSIDE RECORDS SUMMARY | 2022-02-10 09:36 | XMS_ITS | Encounter Summary ---
:1990 Author Organization [facility] Address [address] [place] [address] Care Team Providers Name Role Phone Elsewhere, Pcp Primary Care Provider Unavailable Encounter Details Date Type Department Care Team Description 10/02/2021 Orders Only Jairo Gamino am [facility] 200 1 [facility] Exam (Primary Dx) and Clinical Regeneration [place], [place] in [facility] [phone] [place] [phone] Social History Tobacco Use Types Packs/Day [...] you attend restoration or Patient refused 2021 anabaptism services? 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 [address] [place] [address] [phone] Telemedicine Transplant Ashtyn 2 Brigid noyola M.D. [address] [place] [address] [phone] Office Visit Community Internal Neda, 2 Solitario Perez P.A.-C. [address] [place] [phone] Lab Laboratory Medicine Karin, Olinda Gannon M.D., Ph.D. [address] [place] [address] [phone] Lab Laboratory Medicine Karin, Olinda Adeline Gannon M.D., Ph.D. [address] [place] [address] [phone] Office Visit Transplant Karin, Olinda Gannon M.D., Ph.D. [address] [place] [address] [phone] Appointment Radiology Matthew Jerome 2 Y M.B.B.SSuma, Lilian [address] [place] [phone] Appointment Gastroenterology and Adrianne, 2 Hepatology Yue Burciaga M.D. [address] [place] [address] [phone] Office Visit Gastroenterology and Matthew Jerome 2 Hepatology Jennifer M.B.B.SSuma, Lilian [address] [place] [phone] Appointment Radiology Matthew Jerome 2 Y M.B.B.S., Lilian [address] [place] [phone] Hospital Gastroenterology and [place] Matthew Cirrhos is Alcoholic (HCC) 2 Encounter Hepatology Jennifer M.B.B.SSuma, Lilian [address] [place] [phone] Anesthesia Event Gastroenterology and Rl, 2 Hepatology Ervin Burgos M.D. [address] [place] [phone] Surgery Gastroenterology and Mousa, Matthew ESOPHAG OGASTRODUODENOSCOPY 2 Hepatology Tyrell Rodriguez M.D. 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
--- OUTSIDE RECORDS SUMMARY | 2022-02-10 09:36 | XMS_ITS | Encounter Summary ---
:[address] [facility] Address [address] [place] [address] Care Team Providers Name Role Phone Elsewhere, Pcp Primary Care Provider Unavailable Reason for Visit Transplant (Routine) - Closed Specialty Diagnoses / Procedures Referred By Contact Refer red To Contact Transplant Surgery / Diagnoses Cirrhosis Alcoholic (HCC) Abnormal Liver Function Test Ascites Pretransplant Recipient Evaluation Exam Preoperative Exam Warren Hernández, [facility] Transplant M.DSuma, M.P.H. [address] [place] [address] Referral ID Status Reason Start Date Expiration Date Visits Requ ested Visits Authorized [id number] Closed 08/25/2021 08/25/2022 1 1 Encounter Details Date Type Department Care Team Description 10/02/2021 Comprehensive Visit Ramirez Barajas, Cirrhosis Alcoholic (HCC); [facility], Abnormal Liver Function Test; Transplantation and MJules, Ph.D. Ascites; Clinical Regeneration [address] [place] nsplant Recipient Evaluation Exam; in [facility] Preoperative Exam [address] [facility] [address] [phone] Social History Tobacco Use Types Packs/Day Years [...] attend oriental orthodox or Patient refused 2021 gnosticist services? 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 - 10/02/2021 1:00 PM CDT SUBJECTIVE HISTORY OF PRESENT ILLNESS Ms. Carias is a 31-year-old woman from [place], [place], with alcohol- associated cirrhosis. Her disease was diagnosed in fall when she fell ill and was subsequently hospitalized. It appears that several months prior to that, she started to feel more fatigued and perhaps developed encephalopathy. She quit working. She also noticed that she was getting jaundiced in March of 2021. She was hospitalized in [place] and diagnosed with cirrhosis. This is secondary [...] Dinh M.D., Ph.D. CT CT Job ID: [id number]/mc documented in this encounter Plan of Treatment Upcoming Encounters Date Type Specialty Care Team Description Virtual Visit Transplant Matthew Jerome M .B.BSumaS., Lilian [address] [place] [phone] 2 Rain Reyes R.N. [address] [place] [phone] Telemedicine Transplant LinaFederico 2 Brigid noyola M.D. [address] [place] [phone] Office [address] [facility] Internal [facility], 2 Medicine Vernell Perez [address] [place] [phone] Lab Laboratory Medicine Karin, 2 Adeline Gannon M.D., Ph.D. [address] [place] [phone] Lab Laboratory Medicine Karin, 2 Adeline Gannon M.D., Ph.D. [address] [place] [phone] Office Visit Transplant Karin, 2 Adeline Gannon M.D., Ph.D. [address] [place] [phone] Appointment Radiology Matthew Jerome 2, M.B.BSumaSSuma, MJules [address] [place] [address] Appointment Gastroenterology demian Silver, 2 Hepatology Yue Burciaga M.D. [address] [place] [phone] Office Visit Gastroenterology and Matthew Jerome 2 Hepatology Tyrell Rodriguez M.D. [address] [place] [phone] Appointment Radiology Matthew Jerome 2 YTyrell M.D. [address] [place] [phone] Hospital Gastroenterology and [place] Matthew Cirrhos is Alcoholic (HCC) 2 Encounter Hepatology Tyrell Rodriguez M.D. [address] [place] [phone] Anesthesia Event Gastroenterology and Rl, 2 Hepatology Ervin Burgos M.D. [address] [place] [address] [phone] Surgery Gastroenterology and Queenie Matthew ESOPHAG OGASTRODUODENOSCOPY 2 Hepatology Tyrell Rodriguez M.D. 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 Hypertension Portal (HCC) documented as of this encounter Visit Diagnoses Diagnosis Cirrhosis Alcoholic (HCC) Abnormal Liver Function Test Ascites Pretransplant Recipient Evaluation Exam Preoperative Exam Cirrhosis Alcoholic (HCC) Cirrhosis Alcoholic (HCC) Hypertension Portal (HCC) documented in this encounter Care Teams Board Of Directors Relationship Specialty Start Date End Date Elsewhere, Pcp PCP - General Family Medicine 03/10/20 11/30/21 [facility] [place] lab 08/25/21 Ervin Schroeder MD Referring Provider Family Medicine 03/24/[address] [place] [phone] documented as of this encounter
--- OUTSIDE RECORDS SUMMARY | 2022-02-10 09:36 | XMS_ITS | Encounter Summary ---
:1990 Author Organization [facility] Address [address] [place] [address] Care Team Providers Name Role Phone Elsewhere, Pcp Primary Care Provider Unavailable Reason for Visit Reason Comments Med Management Outpatient (Routine) - Closed Specialty Diagnoses / Procedures Referred By Contact Refer red To Contact Pharmacy Diagnoses Cirrhosis Alcoholic (HCC) Abnormal Liver Function Test Ascites Pretransplant Recipient Evaluation Exam Preoperative Exam Warren Hernández M.D., [facility] M.P.H. [address] [place] [address] Referral ID Status Reason Start Date Expiration Date Visits Requ ested Visits Authorized [id number] Closed 08/25/2021 08/25/2022 1 1 Encounter Details Date Type Department Care Team Description 09/30/2021 Office Visit Warren Carter M.D., M.P.H. [address] [place] [phone] Cirrhosis Alcoholic (HCC); [facility] Evon Joseph, Pharm.D., R.Ph. [address] [place] [phone] Abnormal Liver Function Test; Transplantation and Ascites; Clinical Regeneration in Pre transplant Recipient Evaluation Exam; [place], [place] Preoperative Exam [address] [place] [phone] Social History Tobacco Use Types Packs/Day [...] you attend anglican or Patient refused 2021 cheondoism services? 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 The patient presents today for a [facility] Pharmacist transplant evaluation; consideration for transplant [...] future, as smoking hurts her lungs.Medical Cannabis [place] registration #[id number]. Insomnia medications: She also has hydroxyzine 25 [...] 1 mgdaily, thiamine 100 mg daily, ergocalciferol 42010 IU weekly on Wednesday and vitamin A 26256 units three days per week. Contraception medications: [...] 1 time per month. The patient uses [employer] locally. Does the patient know what medications [...] Transplant Matthew Jerome M .B.B.S., M.D. [address] [place] [address] 2 Rain Reyes R.N. [address] [place] [phone] Telemedicine Transplant LinaFederico 2 Brigid noyola M.D. [address] [place] [phone] Office Visit Community Internal Neda, Olinda Medicine Vernell Perez 300 [facility] [place] [phone] Lab Laboratory Medicine Karin, 2 Adeline Gannon M.D., Ph.D. [address] [place] [phone] Lab Laboratory Medicine Karin, 2 Adeline Gannon M.D., Ph.D. [address] [place] [phone] Office Visit Transplant Karin, 2 Adeline Gannon M.D., Ph.D. [address] [place] [phone] Appointment Radiology Matthew Jerome 2 Y, M.B.B.SSuma, MJules [address] [place] [address] [phone] Appointment Gastroenterology and Adrianne, 2 Hepatology Yue Burciaga M.D. [address] [place] [phone] Office Visit Gastroenterology and Matthew Jerome 2 Hepatology Jennifer M.B.B.S., MJules [address] [place] [phone] Appointment Radiology Matthew Jerome 2 Y, M.B.B.S., MJules [address] [place] [phone] [facility] Gastroenterology and Mousa, Matthew Cirrhos is Alcoholic (HCC) 2 Encounter Hepatology Tyrell Rodriguez M.D. [address] [place] [address] [phone] Anesthesia Event Gastroenterology and Rl, 2 Hepatology Ervin Burgos M.D. [address] [place] [address] [phone] Surgery Gastroenterology and Mousa, Matthew ESOPHAG OGASTRODUODENOSCOPY 2 Hepatology Tyrell Rodriguez M.D. 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 Hypertension Portal (HCC) documented as of this encounter Visit Diagnoses Diagnosis Cirrhosis Alcoholic (HCC) Abnormal Liver Function Test Ascites Pretransplant Recipient Evaluation Exam Preoperative Exam Cirrhosis Alcoholic (HCC) Cirrhosis Alcoholic (HCC) Hypertension Portal (HCC) documented in this encounter Care Teams Weaver Needle Loom Relationship Specialty Start Date End Date Elsewhere, Pcp PCP - General Family Medicine 03/10/20 11/30/21 [facility] [place] lab 08/25/21 Ervin Schroeder MD Referring Provider Family Medicine 03/24/[address] [place] [phone] documented as of this encounter
--- OUTSIDE RECORDS SUMMARY | 2022-02-10 09:36 | XMS_ITS | Encounter Summary ---
:1990 Author Organization [facility] Address [address] [place] [address] Care Team Providers Name Role Phone Elsewhere, Pcp Primary Care Provider Unavailable Reason for Visit Transplant (Routine) - Closed Specialty Diagnoses / Procedures Referred By Contact Refer red To Contact Transplant Surgery / Diagnoses Cirrhosis Alcoholic (HCC) Abnormal Liver Function Test Ascites Pretransplant Recipient Evaluation Exam Preoperative Exam Warren Hernández, [facility] Transplant M.D., M.P.H. [address] [place] [address] Referral ID Status Reason Start Date Expiration Date Visits Requ ested Visits Authorized [id number] Closed 08/25/2021 08/25/2022 1 1 Encounter Details Date Type Department Care Team Description 10/02/2021 Comprehensive Visit Ramirez Adler, Cirrhosis Alcoholic (HCC); [facility] [place], Abnormal Liver Function Test; Transplantation and M.D. Ascites; Clinical Regeneration [address] [place] [address] Pretransplant Recipient Evaluation Exam; in [place], [place] Preoperative Exam [place] [id number] [place] [address] [place], [place] (Work) [phone] Social History Tobacco Use Types Packs/Day Years [...] How often do you attend sikh or Patient refused 2021 restorationist services? 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 [address] [place] [address] 2 Rain Reyes R.N. [address] [place] [phone] Telemedicine Transplant LinaFederico 2 Brigid noyola M.D. [address] [place] [address] [phone] Office Visit Community Internal Neda, 2 Medicine Vernell Perez 300 [facility] [place] [phone] Lab Laboratory Medicine Karin, 2 Adeline Gannon M.D., Ph.D. [address] [place] [phone] Lab Laboratory Medicine Karin, 2 Adeline Gannon M.D., Ph.D. [address] [place] [phone] Office Visit Transplant Karin, 2 Adeline Gannon M.D., Ph.D. [address] [place] [phone] Appointment Radiology Matthew Jerome 2 Y M.B.B.SSuma, MJules [address] [place] [phone] Appointment Gastroenterology and Adrianne, 2 Hepatology Yue Burciaga M.D. [address] [place] [phone] Office Visit Gastroenterology and Matthew Jerome 2 Hepatology Jennifer M.B.B.SSuma, Lilian [address] [place] [address] [phone] Appointment Radiology Matthew Jerome 2 Y M.B.B.SSuma, Lilian [address] [place] [address] [phone] [facility] Gastroenterology and [facility], Matthew Cirrhos is Alcoholic (HCC) 2 Encounter Hepatology Tyrell Rodriguez M.D. [address] [place] [phone] Anesthesia Event Gastroenterology and Rl, 2 Hepatology Ervin Burgos M.D. [address] [place] [address] [phone] Surgery Gastroenterology and [facility], [place] ESOPHAG OGASTRODUODENOSCOPY 2 Hepatology Tyrell Rodriguez M.D. 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 Hypertension Portal (HCC) documented as of this encounter Visit Diagnoses Diagnosis Cirrhosis Alcoholic (HCC) Abnormal Liver Function Test Ascites Pretransplant Recipient Evaluation Exam Preoperative Exam Cirrhosis Alcoholic (HCC) Cirrhosis Alcoholic (HCC) Hypertension Portal (HCC) documented in this encounter Care Teams Seafood Packer Relationship Specialty Start Date End Date Elsewhere, Pcp PCP - General Family Medicine 03/10/20 11/30/21 [facility] [place] lab 08/25/21 Ervin Schroeder MD Referring Provider Family Medicine 03/24/[address] [place] [phone] documented as of this encounter
--- OUTSIDE RECORDS SUMMARY | 2022-02-10 09:36 | XMS_ITS | Encounter Summary ---
:1990 Author Organization [facility] Address [address] [place] [address] Care Team Providers Name Role Phone Elsewhere, Pcp Primary Care Provider Unavailable Encounter Details Date Type Department Care Team Description 09/30/2021 Lab Department of Laboratory Alec Hernández Cirrhosis Alcoholic (HCC); Medicine and PathologySilvano M.D., M.P.H. Abnormal Liver Function Test; [place], in [address] [place] [address] Ascites; [place] [address] Pretransplant Recipient Evaluation Exam; [address] [place] [address] [place] [phone] Social History Tobacco Use Types Packs/Day Years [...] How often do you attend yarsani or Patient refused 2021 advent services? Do you belong to any clubs or No 02/10/2022 organizations such as yarsani groups, unions, fraternal [...] the highest technical, or vocational p [facility] degree you have received? 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 - 10/03/2021 3:32 PM CDT I reviewed the attached results. Urinalysis is negative. Staph epidermidis is likely skin contamination. documented in this encounter Plan of Treatment Upcoming Encounters Date Type Specialty Care Team Description Virtual Visit Transplant Matthew Jerome M .B.B.S., M.D. [address] [place] [phone] 2 Rain Reyes R.N. [address] [place] [phone] Telemedicine Transplant Ashtyn 2 Brigid noyola M.D. [address] [place] [phone] Office Visit Community Internal Deanovic, 2 Medicine Vernell Perez [address] [place] [phone] Lab Laboratory Medicine Karin, 2 Adeline Gannon M.D., Ph.D. [address] [place] [phone] Lab Laboratory Medicine Karin, 2 Adeline Gannon M.D., Ph.D. [address] [place] [phone] Office Visit Transplant Karin, 2 Adeline Gannon M.D., Ph.D. [address] [place] [phone] Appointment Radiology Matthew Jerome 2 MSumaB.B.Lilian Stockton [address] [place] [phone] Appointment Gastroenterology and Adrianne, 2 Hepatology Yue Burciaga M.D. [address] [place] [phone] Office Visit Gastroenterology and Matthew Jerome 2 Hepatology Joshua RodriguezB.B.SLilian Moise [address] [place] [phone] Appointment Radiology Queenie Matthew 2 Tyrell Rodriguez M.D. [address] [place] [phone] [address] G[address]ology and [facility] Cirrhos is Alcoholic (HCC) 2 Encounter Hepatology Tyrell Rodriguez M.D. [address] [place] [phone] Anesthesia Event Gastroenterology and Rl, 2 Hepatology Ervin Burgos M.D. [address] [place] [phone] [address] [facility] ESOPHAG OGASTRODUODENOSCOPY 2 Hepatology Tyrell Rodriguez M.D. 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 TEACHER Hypertension Portal (HCC) documented as of this encounter Procedures Procedure Name Priority Date/Time Associated Comments Diagnosis [place] OSMOLALITY ASSAY Routine 09/30/2021 8:23 AM Re [...] (ABNORMAL) Dipstick, Urine (09/30/2021 8:23 AM CDT) [facility] Method Time Signature Hemoglobin, Trace (A) [...] City/State/ZIP Code Phon e Number [facility] - [address] [place], [place] [address] [facility] [place] [place] [address] [facility] [address] Osmolality, Urine (09/30/2021 8:23 AM CDT) athologist Signature Osmolality, U 628 150 - 1150 09/30/2021 DTL mOsm/kg 9:41 AM CDT Specimen Anatomical Collection Method Collection Time Receive d Time (Source) Location / / Volume Laterality Urine 09/30/2021 8:23 AM 2 8:24 CDT AM CDT Warren Hernández M.D., M.P.H. LAB URINE ORDERABLES Performing Organization Address City/State/ZIP Code Phon e Number [facility] - [address] [place], [place] [address] [facility] [place] [place] [address] pH, Random, Urine (09/30/2021 8:23 AM CDT) athologist Signature pH, Random, U 5.7 4.5 - 8.0 09/30/2021 DTL 9:41 AM CDT Specimen Anatomical Collection Method Collection Time Receive d Time (Source) Location / / Volume Laterality Urine 09/30/2021 8:23 AM 2 8:24 CDT AM CDT Warren Hernández M.D., M.P.H. LAB URINE ORDERABLES Performing Organization Address City/[facility]/ZIP Code Phon e Number [facility] - [address] [place], [place] [address] [place] [address] Microscopic Manual (09/30/2021 8:23 AM CDT) athologist [...] M.P.H. LAB URINE ORDERABLES Performing Organization Address City/[facility]/ZIP Code Phon e Number [facility] - [address] [place], [place] [address] [place], [place] [id number] [place] [address] Ethyl Glucuronide Screen with Reflex, Urine (09/30/2021 8:23 AM CDT) [facility] Method Time Signature Ethyl Negative Cutoff: 09/30/2021 [facility] Glucuronide Scrn 500 ng/mL 11:12 AM CDT w/Reflex, U Comment: ----ADDITIONAL INFORMATION---- This test was developed and its performa nce characteristics determined by [facility] in a manner consistent with [...] City/State/ZIP Code Phon e Number [facility] [address] [place], [place] [address] [facility] [place] [address] Laboratory Medicine and Pathology [address] [place] (ABNORMAL) Bacterial Culture, Aerobic + Susc, Urine (09/30/2021 8:23 AM CDT) Component Value Ref Test Analysis Performed At [facility] Method Time Signature Urine Culture STAPHYLOCOCCUS EPIDERMIDIS [...] City/State/ZIP Code Phon e Number [facility] - [address] [place], [place] [address] [facility] [place] [address] [facility] [address] (ABNORMAL) Drug Abuse Survey with Confirmation, Panel 9, Urine (09/30/2021 8:23 AM CDT) Component Value Ref Test Analysis Performed At [facility] Range Method Time Signature Alcohol [...] Its performance characteristics were determi foreign by [facility] in a manner consistent with [...] City/State/ZIP Code Phon e Number [facility] [address] [place], [place] [address] [facility] [place] [address] Laboratory Medicine and Pathology [address] [place] Urinalysis with Microscopic: Urine, Midstream (09/30/2021 8:23 AM CDT) [facility] Method Time Signature Source Urine, Urine, 09/30/2021 [...] City/State/ZIP Code Phon e Number [facility] - [address] [place], [place] [address] [facility] [place] [address] [facility] [address] documented in this encounter Visit Diagnoses Diagnosis Cirrhosis Alcoholic (HCC) Abnormal Liver Function Test Ascites Pretransplant Recipient Evaluation Exam Preoperative Exam Cirrhosis Alcoholic (HCC) Cirrhosis Alcoholic (HCC) Hypertension Portal (HCC) documented in this encounter Care Teams Remediation Project Engineer Relationship Specialty Start Date End Date Elsewhere, Pcp PCP - General Family Medicine 03/10/20 11/30/21 [facility] [place] [facility] 08/25/21 Ervin Schroeder MD Referring Provider Family Medicine 03/24/[address] [place] [address] documented as of this encounter
--- OUTSIDE RECORDS SUMMARY | 2022-02-10 09:36 | XMS_ITS | Encounter Summary ---
:1990 Author Organization [facility] Address [address] [place] [address] Care Team Providers Name Role Phone Elsewhere, Pcp Primary Care Provider Unavailable Reason for Referral Physical Therapy (Routine) - Pending Review Specialty Diagnoses / Procedures Referred By Contact Refer red To Contact Diagnoses Edema Leg Matthew Jerome M.B.BSumaSSuma, [facility] Region Procedures PT Ongoing treatment .D. [address] [place] [phone] Referral ID Status Reason Start Date Expiration Date Visits V isits Requested Authorized [id number] Pending 09/24/2021 09/24/2022 99 99 Review Reason for Visit Physical Therapy (Routine) - Closed Specialty Diagnoses / Procedures Referred By Contact Refer red To Contact Diagnoses Edema Leg Matthew Jerome M.B.BGraeme, [facility] Region Procedures PT Evaluate and treat M.D. [address] [place] [phone] Referral ID Status Reason Start Date Expiration Date Visits Requ ested Visits Authorized [id number] Closed 09/16/2021 09/16/2022 1 1 Encounter Details Date Type Department Care Team Description 09/24/2021 Comprehensive Visit Department of Physical Matthew Jerome M.B.B.S., Lilian [address] [place] [address] Edema Leg Medicine and Jessy Haywood M.S., P.T., CLT-JAKI [address] [place] [address] Rehabilitation in [place], [place] [address] [place] [phone] Social History Tobacco Use Types Packs/Day [...] you attend nondenominational or Patient refused 2021 baptist services? 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 Lower Extremity Lymphedema Initial Evaluation Patient Name: Catia Carias Date of Evaluation: 09/24/2021 Referring Provider: Matthew Jerome M.B.B.S. MJules [address] [place] [phone] Rehab Diagnosis: 1. Edema Leg Reason for Referral: Insurance: Payor: [employer] [place] / Plan: [employer] HMO / Product Type: MedicaidHMO / Total [...] patient education handout A Guide to Lymphedema (UI0409), as well as signs and symptoms of cellulitis utilizing patient education handout Cellulitis (EE5497). - Instructed exercises to reduce lymphedema. - [...] min Electronically signed by: Jessy Haywood M.S., P.T., MARRY 09/24/21 2:38 PM CDT documented in this encounter Plan of Treatment Upcoming Encounters Date Type Specialty Care Team Description Virtual Visit Transplant Matthew Jerome M .B.B.S., Lilian [address] [place] [address] 2 Rain Reyes R.N. [address] [place] [phone] Telemedicine Transplant LinaDemarcus 2 Brigid noyola M.D. [address] [place] [address] [phone] Office Visit [facility], 2 Medicine Vernell Perez [address] [place] [phone] Lab Laboratory Medicine Olinda Frazier M.D., Ph.D. [address] [place] [phone] Lab Laboratory Medicine Olinda Frazier M.D., Ph.D. [address] [place] [phone] Office Visit Transplant Olinda Frazier M.D., Ph.D. [address] [place] [phone] Appointment Radiology Matthew Jerome 2 Vik RodriguezBGraeme, Lilian [address] [place] [phone] Appointment Gastroenterology and Adrianne 2 Hepatology Yue Burciaga M.D. [address] [place] [phone] Office Visit Gastroenterology and Matthew Jerome 2 Hepatology Joshua RodriguezBSumaBGraeme, Lilian [address] [place] [phone] Appointment Radiology Matthew Jerome 2 Jennifer MSumaB.B.Lilian Stockton [address] [place] [phone] Hospital Gastroenterology and Matthew Jerome Cirrhos is Alcoholic (HCC) 2 Encounter Hepatology Joshua RodriguezB.B.Lilian Stockton [address] [place] [phone] Anesthesia Event Gastroenterology and Rl, 2 Hepatology Ervin Burgos M.D. [address] [place] [address] [phone] Surgery Gastroenterology and Matthew Jeroem ESOPHAG OGASTRODUODENOSCOPY 2 Hepatology Joshua RodriguezB.B.Lilian Stockton [address] [place] [phone] Scheduled Procedures Name Priority Associated Diagnoses Date/Time ESOPHAGOGASTRODUODENOSCOPY Cirrhosis Alc oholic (HCC) 03/20/2022 8:45 AM TEACHER Hypertension Portal (HCC) documented as of this encounter Visit Diagnoses Diagnosis Edema Leg Cirrhosis Alcoholic (HCC) Cirrhosis Alcoholic (HCC) Hypertension Portal (HCC) documented in this encounter Care Teams Adjunct Mathematics Instructor Relationship Specialty Start Date End Date Elsewhere, Pcp PCP - General Family Medicine 03/10/20 11/30/21 [facility] [place] lab 08/25/21 Ervin Schroeder MD Referring Provider Family Medicine 03/24/[address] [place] [phone] documented as of this encounter
--- OUTSIDE RECORDS SUMMARY | 2022-02-10 09:36 | XMS_ITS | Encounter Summary ---
:1990 Author Organization [facility] Address [address] [place] [address] Care Team Providers Name Role Phone Elsewhere, Pcp Primary Care Provider Unavailable Reason for Visit Reason Onset Date Comments [facility] Financial 09/26/2021 Encounter Details Date Type Department Care Team Description 09/26/2021 Clinical Communication Ramirez Amador, [facility] [place], Transplantation and C.M.A. Clinical Regeneration in [phone] [place], [place] (Work) [address] [place] [phone] Social History Tobacco Use Types Packs/Day [...] you attend yazidi or Patient refused 2021 synagogue services? 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 - 09/26/2021 10:47 AM CDT Recipient Pre-Transplant Review Document: Organ: Kidney ____ Liver _X___ Heart ____ Lung ____ Pancreas ____ BMT ____ Insurance Carrier: [facility] 2B Demographic Information: __X__ Confirmed information is [...] coordination of benefits: deductible, co-insurance, co-pay, or [id number] maximum. __X__ Patient understands that this is [...] current coverage and to contact the appropriate democrat with anticipated changes. Estimate of Services: _X___ Confirmed understanding of potential financial responsibilities and transplant anticipated expenses. _X___ Transplant care and post-transplant medications are life-long (general information; patient can obtain list of immunosuppressants (Medications) from the nurse coordinator. __X__ Discussed out of pocket expenses for follow-up care, including testing, routine care, and/or complications from surgery. _X___ Handed patient Financial Assistance Policy. ([id number]) PATIENT EDUCATION Education Material: __X__ Provided patient with an educational guide (Planning for Your Transplant: A Financial Guide [id number]) to assist in outlining financial responsibilities related [...] _X___ Advised recipient to notify [facility] with any insurance updates or changes; failure to do so may impede transplant eligibility. __X__ Discussed financial concerns related to ability to pay for services and post-transplant care. Including, Financial Assistance policy if financial hardship was identified. __X__ Provided Transplant Financial business card with our contact phone number of [phone] if patient were to have additional questions. __X__ Annual benefit review will be done to verify active coverage with patient's insurance going forward. PATIENT TEACH BACK X [facility] X May have travel and lodging funds available through [facility] X Cost of transplant X Reviewed to call Transplant Financial Coordinators with questions documented in this encounter Plan of Treatment Upcoming Encounters Date Type Specialty Care Team Description Virtual Visit Transplant Matthew Jerome M .B.BSumaSSuma, MJules [address] [place] [address] 2 Rain Reyes R.N. [address] [place] [phone] Telemedicine Transplant LinaFederico 2 Brigid noyola M.D. [address] [place] [phone] Office Visit [facility] Internal [facility], 2 Medicine Vernell Perez [address] [place] [phone] Lab Laboratory Medicine Karin, 2 Adeline Gannon M.D., Ph.D. [address] [place] [phone] Lab Laboratory Medicine Karin, 2 Adeline Gannon M.D., Ph.D. [address] [place] [phone] Office Visit Transplant Karin, 2 Adeline Gannon M.D., Ph.D. [address] [place] [phone] Appointment Radiology Matthew Jerome 2, M.B.BSumaSSuma, MJules [address] [place] [phone] Appointment Gastroenterology demian Silver, 2 Hepatology Yue Burciaga M.D. [address] [place] [phone] Office Visit Gastroenterology and Matthew Jerome 2 Hepatology Vik RodriguezBGraeme, Lilian [address] [place] [phone] Appointment Radiology Matthew Jerome 2 YTyrell, Lilian [address] [place] [phone] Hospital Gastroenterology and Matthew Jerome Cirrhos is Alcoholic (HCC) 2 Encounter Hepatology Tyrell Rodriguez, Lilian [address] [place] [phone] Anesthesia Event Gastroenterology and Rl, 2 Hepatology Ervin Burgos M.D. [address] [place] [phone] Surgery Gastroenterology and Matthew Jerome ESOPHAG OGASTRODUODENOSCOPY 2 Hepatology Tyrell Rodriguez M.D. [address] [place] [phone] Scheduled Procedures Name Priority Associated Diagnoses Date/Time ESOPHAGOGASTRODUODENOSCOPY Cirrhosis Alc oholic (HCC) 03/20/2022 8:45 AM EARLY CHILDHOOD EDUCATION COORDINATOR Hypertension Portal (HCC) documented as of this encounter Visit Diagnoses Not on filedocumented in this encounter Care Teams Variety Performer Relationship Specialty Start Date End Date Elsewhere, Pcp PCP - General Family Medicine 03/10/20 11/30/21 [facility] [place] lab 08/25/21 Ervin Schroeder MD Referring Provider Family Medicine 03/24/[address] [place] [phone] documented as of this encounter
--- OUTSIDE RECORDS SUMMARY | 2022-02-10 09:36 | XMS_ITS | Encounter Summary ---
:1990 Author Organization [facility] Address [address] [place] [address] Care Team Providers Name Role Phone Elsewhere, Pcp Primary Care Provider Unavailable Reason for Visit Transplant (Routine) - Closed Specialty Diagnoses / Procedures Referred By Contact Refer red To Contact Transplant Surgery / Diagnoses Cirrhosis Alcoholic (HCC) Abnormal Liver Function Test Ascites Pretransplant Recipient Evaluation Exam Preoperative Exam Warren Hernández, [facility] Transplant Lilian, M.P.H. [address] [place] [address] Referral ID Status Reason Start Date Expiration Date Visits Requ ested Visits Authorized [id number] Closed 08/25/2021 08/25/2022 1 1 Encounter Details Date Type Department Care Team Description 09/30/2021 Comprehensive Visit Warren Middleton M.D., M.P.H. [address] [place] [phone] Cirrhosis Alcoholic (HCC); [facility] Milagros Navarro M.S., RDN, LD [address] [place] [phone] Abnormal Liver Function Test; Transplantation and Ascites; Clinical Regeneration Pretra nsplant Recipient Evaluation Exam; in [place], [facility] E xam [place] [address] [place] [phone] Social History Tobacco Use Types Packs/Day Years [...] you attend buddhism or Patient refused 2021 pentecostal services? 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 HS snack: lemon/iliamna, apple, a few crackers or protein bar [...] Transplant Matthew Jerome M .B.B.S., MJules [address] [place] [address] 2 Rain Reyes R.N. [address] [place] [phone] Telemedicine Transplant Ashtyn 2 Brigid noyola M.D. [address] [place] [phone] Office Visit Community Internal Neda, 2 Solitario Perez P.A.-C. [address] [place] [phone] Lab Laboratory Medicine Karin, 2 Adeline Gannon M.D., Ph.D. [address] [place] [phone] Lab Laboratory Medicine Olinda Frazier M.D., Ph.D. [address] [place] [phone] Office Visit Transplant Karin, Olinda Gannon M.D., Ph.D. [address] [place] [phone] Appointment Radiology Matthew Jerome 2 YJoshuaBSumaBLilian Bedolla [address] [place] [phone] Appointment Gastroenterology and Adrianne, 2 Hepatology Yue Burciaga M.D. [address] [place] [phone] Office Visit Gastroenterology and Matthew Jerome 2 Hepatology Joshua RodriguezBSumaBLilian Bedolla [address] [place] [phone] Appointment Radiology Matthew Jerome 2 YJoshuaB.B.Lilian Stockton [address] [place] [phone] Hospital Gastroenterology and Matthew Jerome Cirrhos is Alcoholic (HCC) 2 Encounter Hepatology Joshua RodriguezB.B.Lilian Stockton [address] [place] [phone] Anesthesia Event Gastroenterology and Rl, 2 Hepatology Ervin Burgos M.D. [address] [place] [phone] Surgery Gastroenterology and Queenie Matthew ESOPHAG OGASTRODUODENOSCOPY 2 Hepatology Tyrell Rodriguez M.D. [address] [place] [phone] Scheduled Procedures Name Priority Associated Diagnoses Date/Time ESOPHAGOGASTRODUODENOSCOPY Cirrhosis Alc oholic (HCC) 03/20/2022 8:45 AM RECOVERY COACH Hypertension Portal (HCC) documented as of this encounter Visit Diagnoses Diagnosis Cirrhosis Alcoholic (HCC) Abnormal Liver Function Test Ascites Pretransplant Recipient Evaluation Exam Preoperative Exam Cirrhosis Alcoholic (HCC) Cirrhosis Alcoholic (HCC) Hypertension Portal (HCC) documented in this encounter Care Teams Steel Heater Relationship Specialty Start Date End Date Elsewhere, Pcp PCP - General Family Medicine 03/10/20 11/30/21 [facility] 08/25/21 Ervin Schroeder MD Referring Provider Family Medicine 03/24/[address] [place] [phone] documented as of this encounter
--- OUTSIDE RECORDS SUMMARY | 2022-02-10 09:36 | XMS_ITS | Encounter Summary ---
:1990 Author Organization [facility] Address [address] [place] [address] Care Team Providers Name Role Phone Elsewhere, Pcp Primary Care Provider Unavailable Reason for Referral Outpatient (Routine) - Pending Review Specialty Diagnoses / Procedures Referred By Contact Refer red To Contact Migue Justice M .D. [facility] [address] [place] [address] [phone] Referral ID Status Reason Start Date Expiration Date Visits V isits Requested Authorized [id number] Pending 10/01/2021 10/01/2022 1 1 Review Scheduling Instructions Calendar: TXP RESEARCH ROCH 10 [TXP ROCH] Floor: [place] 10a Encounter Details Date Type Department Care Team Description 10/01/2021 Orders Only Ramirez Nguyen [facility] cooley for Transplantation and [address] [place] [address] Clinical Regeneration in [place], [place] [phone] [place] [phone] Social History Tobacco Use Types Packs/Day [...] you attend yarsani or Patient refused 2021 jew services? 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 [address] [place] [address] [phone] Office Visit Community Internal Deanovic, 2 Medicine Vernell Perez [address] [place] [phone] Lab Laboratory Medicine Karin, 2 Adeline Gannon M.D., Ph.D. [address] [place] [phone] Lab Laboratory Medicine Karin, 2 Adeline Gannon M.D., Ph.D. [address] [place] [phone] Office Visit Transplant Karin, 2 Adeline Gannon M.D., Ph.D. [address] [place] [phone] Appointment Radiology Matthew Jerome 2 MSumaB.B.Lilian Stockton [address] [place] [phone] Appointment Gastroenterology and Adrianne, 2 Hepatology Yue Burciaga M.D. [address] [place] [address] [phone] Office Visit Gastroenterology and Matthew Jerome 2 Hepatology Joshua RodriguezB.B.SLilian Moise [address] [place] [phone] Appointment Radiology Matthew Jerome 2 YTyrell M.D. [address] [place] [phone] Hospital Gastroenterology and Matthew Jerome Cirrhos is Alcoholic (HCC) 2 Encounter Hepatology Tyrell Rodriguez M.D. [address] [place] [phone] Anesthesia Event Gastroenterology and Rl, 2 Hepatology Ervin Burgos M.D. [address] [place] [phone] Surgery Gastroenterology and Queenie Matthew ESOPHAG OGASTRODUODENOSCOPY 2 Hepatology Tyrell Rodriguez M.D. [address] [place] [phone] Scheduled Procedures Name Priority Associated Diagnoses Date/Time ESOPHAGOGASTRODUODENOSCOPY Cirrhosis Alc oholic (HCC) 03/20/2022 8:45 AM COPPER PLATE PRINTER Hypertension Portal (HCC) Scheduled Referrals Name Type Priority Associated Order Schedule Diagnoses Research Study Outpatient Referral Routine Expect ed: Coordinator office 2 visit (clinic) (Approximate) , Expires: 01/01/2023 documented as of this encounter Visit Diagnoses Not on filedocumented in this encounter Care Teams Acid Patroller Relationship Specialty Start Date End Date Elsewhere, Pcp PCP - General Family Medicine 03/10/20 11/30/21 [facility] [place] lab 08/25/21 Ervin Schroeder MD Referring Provider Family Medicine 03/24/[address] [place] [phone] documented as of this encounter
--- OUTSIDE RECORDS SUMMARY | 2022-02-10 09:36 | XMS_ITS | Encounter Summary ---
:1990 Author Organization [facility] Address [address] [place] [address] Care Team Providers Name Role Phone Elsewhere, Pcp Primary Care Provider Unavailable Reason for Referral Outpatient (Routine) - Closed Specialty Diagnoses / Procedures Referred By Contact Refer brianda To Contact Nicotine Dependence Jessy Crain M.A., C.T.T.S. [address] [place] [address] Referral ID Status Reason Start Date Expiration Date Visits Requ ested Visits Authorized [id number] Closed 10/01/2021 10/01/2022 1 1 Scheduling Instructions [...] Recipient Evaluation Exam Preoperative Exam Warren Hernández, [facility] Nicotine Dependence Lilian, M.P.H. [address] [place] [address] Referral ID Status Reason Start Date Expiration Date Visits Requ ested Visits Authorized [id number] Closed 08/25/2021 08/25/2022 1 1 Encounter Details Date Type Department Care Team Description 10/01/2021 Clinical Support Department of Elier Hernández M.D., M.P.H. [address] [place], [place] [address] Nicotine Dependence Cigarettes (Primary Dx); Nicotine Jessy Crain M.A., C.T.T.S. [address] [place] [phone] Cirrhosis Alcoholic (HCC); Dependence, Gonda Abnormal L iver Function Test; Building, in [place]; [place], Pretransplant R ecipient Evaluation Exam; [place] Preoperative Exam [address] [place] [phone] Social History Tobacco Use Types Packs/Day Years [...] you attend spiritism or Patient refused 2021 druze services? 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 - 10/01/2021 10:00 AM CDT SUBJECTIVE CHIEF COMPLAINT / REASON FOR VISIT Tobacco use disorder HISTORY OF PRESENT ILLNESS Catia Carias is a 31 y.o. female who was seen at [place] [address] and is being evaluated for Tobacco Use [...] provided the patient with educational materials and [facility] contact information. We have scheduled a follow-up [...] Visit Transplant Matthew Jerome M .B.B.S., Lilian [address] [place] [phone] 2 Rain Reyes R.N. [address] [place] [address] [phone] Telemedicine Transplant LinaFederico 2 Brigid noyola M.D. [address] [place] [phone] Office Visit Community Internal [facility], 2 Medicine Vernell Perez [address] [place] [address] Lab Laboratory Medicine Karin, 2 Adeline Gannon M.D., Ph.D. [address] [place] [phone] Lab Laboratory Medicine Olinda Frazier M.D., Ph.D. [address] [place] [phone] Office Visit Transplant Olinda Frazier M.D., Ph.D. [address] [place] [phone] Appointment Radiology Matthew Jerome 2, M.B.B.S., Lilian [address] [place] [address] [phone] Appointment Gastroenterology and Adrianne, 2 Hepatology Yue Burciaga M.D. [address] [place] [phone] Office Visit Gastroenterology and Matthew Jerome 2 Hepatology Joshua RodriguezBSumaBLilian Bedolla [address] [place] [phone] Appointment Radiology Matthew Jerome 2 Joshua RodriguezBSumaBLilian Bedolla [address] [place] [phone] Hospital Gastroenterology and Matthew Jerome Cirrhos is Alcoholic (HCC) 2 Encounter Hepatology Joshua RodriguezB.B.Lilian Stockton [address] [place] [phone] Anesthesia Event Gastroenterology and Rl, 2 Hepatology Ervin Burgos M.D. 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
--- OUTSIDE RECORDS SUMMARY | 2022-02-10 09:36 | XMS_ITS | Encounter Summary ---
:1990 Author Organization [facility] Address [address] [place] [address] Care Team Providers Name Role Phone Elsewhere, Pcp Primary Care Provider Unavailable Reason for Visit Transplant (Routine) - Closed Specialty Diagnoses / Procedures Referred By Contact Refer red To Contact Transplant Surgery / Warren Henrández Roc[facility] Transplant Lilian, M.P.H. [address] [place] [address] Referral ID Status Reason Start Date Expiration Date Visits Requ ested Visits Authorized [id number] Closed 08/26/2021 08/26/2022 1 1 Encounter Details Date Type Department Care Team Description 10/03/2021 Office Visit Silvano Funez M.D. [address] [place] [phone] Patent Foramen Ovale (HCC) (Primary Dx); [facility] Abelino Chow M.D. [address] [place] [phone] Hypertension Portal (HCC); Transplantation and Cirrhosi s Alcoholic (HCC); Clinical Regeneration in Pre transplant Recipient Evaluation Exam [place], [place] [address] [place] [phone] Social History Tobacco Use Types Packs/Day [...] How often do you attend protestant or Patient refused 2021 restorationist services? 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 1025 [place] [phone] 2 Rain Reyes R.N. [address] [place] [phone] Telemedicine [facility]plant [facility] 2 Brigid onyola M.D. [address] [place] [phone] Office Visit [facility] Internal [facility], 2 Medicine Vernell Perez [address] [place] [phone] Lab Laboratory Medicine Karin, 2 Adeline Gannon M.D., Ph.D. [address] [place] [phone] Lab Laboratory Medicine Karin 2 Adeline Gannon M.D., Ph.D. [address] [place] [phone] Office Visit Transplant Karin, 2 Adeline Gannon M.D., Ph.D. [address] [place] [phone] Appointment Radiology LuisNew abdular 2 Tyrell Rodriguez M.D. [address] [place] [phone] Appointment Gastroenterology and Adrianne, 2 Hepatology Yue Burciaga M.D. [address] [place] [phone] Office Visit Gastroenterology and Matthew Jerome 2 Hepatology Tyrell Rodriguez M.D. [address] [place] [phone] Appointment Radiology Queenie Matthew 2 Tyrell Rodriguez M.D. [address] [place] [phone] Hospital Gastroenterology and Queenie Matthew Cirrhos is Alcoholic (HCC) 2 Encounter Hepatology Tyrell Rodriguez M.D. [address] [place] [phone] Anesthesia Event Gastroenterology and Rl, 2 Hepatology Ervin Burgos M.D. [address] [place] [phone] Surgery Gastroenterology and Queenie Matthew ESOPHAG OGASTRODUODENOSCOPY 2 Hepatology Tyrell Rodriguez M.D. [address] [place] [phone] Scheduled Procedures Name Priority Associated Diagnoses Date/Time ESOPHAGOGASTRODUODENOSCOPY Cirrhosis Alc oholic (HCC) 03/20/2022 8:45 AM SHAGGER Hypertension Portal (HCC) documented as of this encounter Visit Diagnoses Diagnosis Patent Foramen Ovale (HCC) - Primary Hypertension Portal (HCC) Cirrhosis Alcoholic (HCC) Pretransplant Recipient Evaluation Exam Cirrhosis Alcoholic (HCC) Cirrhosis Alcoholic (HCC) Hypertension Portal (HCC) documented in this encounter Care Teams Glass Decorator Relationship Specialty Start Date End Date Elsewhere, Pcp PCP - General Family Medicine 03/10/20 11/30/21 [facility]- [facility] 08/25/21 Ervin Schroeder MD Referring Provider Family Medicine 03/24/[address] [place] [phone] documented as of this encounter
--- OUTSIDE RECORDS SUMMARY | 2022-02-10 09:36 | XMS_ITS | Encounter Summary ---
:1990 Author Organization [facility] Address [address] [place] [address] Care Team Providers Name Role Phone Elsewhere, Pcp Primary Care Provider Unavailable Reason for Visit Reason Comments [facility] MED REQUEST Encounter Details Date Type Department Care Team Description 10/01/2021 Clinical Communication Department of KACY Crain MED REQUEST Nicotine Jessy Gannon M.A., Dependence, C.T.T.S. [facility], [address] [place] [address] in [facility] [phone] [place] [address] [place], [place] (Work) [phone] Social History Tobacco Use Types Packs/Day Years [...] you attend mu-ism or Patient refused 2021 episcopal services? Do you belong to any clubs or No 02/10/2022 organizations such as mu-ism groups, unions, [employer] or athletic groups, or school groups? 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 - 10/01/2021 12:13 PM CDT 2 mg MINI lozenges with refills, flavored [facility] in [place] documented in this encounter Plan of Treatment Upcoming Encounters Date Type Specialty Care Team Description Virtual Visit Transplant Matthew Jerome M .B.B.S., MJules [address] [place] [address] 2 Rain Reyes R.N. [address] [place] [phone] Telemedicine Transplant Ashtyn 2 Brigid noyola M.D. [address] [place] [phone] Office Visit Community Internal [place], 2 Medicine Vernell Perez [address] [place] [phone] Lab Laboratory Medicine Karin, 2 Adeline Gannon M.D., Ph.D. [address] [place] [phone] Lab Laboratory Medicine Karin, 2 Adeline Gannon M.D., Ph.D. [address] [place] [phone] Office Visit Transplant Karin, 2 Adeline Gannon M.D., Ph.D. [address] [place] [address] [phone] Appointment Radiology Matthew Jerome 2 M.B.B.SLilian Moise [address] [place] [phone] Appointment Gastroenterology and Adrianne, 2 Hepatology Yue Burciaga M.D. [address] [place] [phone] Office Visit Gastroenterology and Matthew Jerome 2 Hepatology Joshua RodriguezB.B.SLilian Moise [address] [place] [phone] Appointment Radiology Matthew Jerome 2 YTyrell, Lilian [address] [place] [phone] Hospital Gastroenterology and Idchantell Matthew Cirrhos is Alcoholic (HCC) 2 Encounter Hepatology Tyrell Rodriguez M.D. [address] [place] [address] [phone] Anesthesia Event Gastroenterology and Rl, 2 Hepatology Ervni Burgos M.D. [address] [place] [address] [phone] [facility] ESOPHAG O[facility]STR[facility]ODENOSCOPY 2 Hepatology Tyrell Rodriguez M.D. [address] [place] [phone] Scheduled Procedures Name Priority Associated Diagnoses Date/Time ESOPHAGOGASTRODUODENOSCOPY Cirrhosis Alc oholic (HCC) 03/20/2022 8:45 AM DIE TRY OUT WORKER STAMPING Hypertension Portal (HCC) documented as of this encounter Visit Diagnoses Not on filedocumented in this encounter Care Teams Seo Associate Relationship Specialty Start Date End Date Elsewhere, Pcp PCP - General Family Medicine 03/10/20 11/30/21 [facility] [place] lab 08/25/21 Ervin Schroeder MD Referring Provider Family Medicine 03/24/[address] [place] [address] documented as of this encounter
--- OUTSIDE RECORDS SUMMARY | 2022-02-10 09:36 | XMS_ITS | Encounter Summary ---
:1990 Author Organization [facility] Address [address] [place] [address] Care Team Providers Name Role Phone Elsewhere, Pcp Primary Care Provider Unavailable Reason for Visit Outpatient (Routine) - Closed Specialty Diagnoses / Procedures Referred By Contact Refer red To Contact Preventive Medicine Diagnoses Cirrhosis Alcoholic (HCC) Abnormal Liver Function Test [facility] Pretransplant Recipient Evaluation Exam Preoperative Exam Warren Hernández [facility] Lilian, M.P.H. [address] [place] [address] Referral ID Status Reason Start Date Expiration Date Visits Requ ested Visits Authorized [id number] Closed 08/25/2021 08/25/2022 1 1 Encounter Details Date Type Department Care Team Description 10/01/2021 Comprehensive Visit Section of Preventive, Alicia Diggs Counseling Preventive (Primary Dx); Transportation and K, ARC AND GAS WELDER, Cirrhosis Alcoholic (HCC); Occupational Medicine C.N.P. Abnorm al Liver Function Test; in [facility]; [place] Pretransplant Recipient Eval uation Exam; [address] [facility] [place] [phone] Social History Tobacco Use Types Packs/Day Years [...] How often do you attend bahai or Patient refused 2021 voodoo services? 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 [address] [place] [phone] 2 Rain Reyes R.N. [address] [place] [phone] Telemedicine Transplant LinaDemarcus 2 Brigid noyola M.D. [address] [place] [phone] Office Visit [facility] Internal [facility], 2 Medicine Vernell Perez [address] [place] [address] [phone] Lab Laboratory Medicine Karin, Olinda Gannon M.D., Ph.D. [address] [place] [phone] Lab Laboratory Medicine Olinda Frazier M.D., Ph.D. [address] [place] [phone] Office Visit Transplant Olinda Frazier M.D., Ph.D. [address] [place] [phone] Appointment Radiology LuisNew abdular 2 Tyrell Rodriguez M.D. [address] [place] [phone] Appointment Gastroenterology and Adrianne, 2 Hepatology Yue Burciaga M.D. [address] [place] [phone] Office Visit Gastroenterology and Matthew Jerome 2 Hepatology Tyrell Rodriguez M.D. [address] [place] [phone] Appointment Radiology Queenie Matthew 2 Tyrell Rodriguez M.D. [address] [place] [phone] Hospital Gastroenterology and Queenie Matthew Cirrhos is Alcoholic (HCC) 2 Encounter Hepatology Tyrell Rodriguez M.D. [address] [place] [phone] Anesthesia Event Gastroenterology and Rl, 2 Hepatology Ervin Burgos M.D. [address] [place] [address] [phone] Surgery Gastroenterology and Matthew Jerome ESOPHAG OGASTRODUODENOSCOPY 2 Hepatology Tyrell Rodriguez M.D. [address] [place] [phone] Scheduled Procedures Name Priority Associated Diagnoses Date/Time ESOPHAGOGASTRODUODENOSCOPY Cirrhosis Alc oholic (HCC) 03/20/2022 8:45 AM CLINICAL TRIAL DATA MANAGER Hypertension Portal (HCC) documented as of this encounter Visit Diagnoses Diagnosis Counseling Preventive - Primary Cirrhosis Alcoholic (HCC) Abnormal Liver Function Test [facility] Pretransplant Recipient Evaluation Exam Preoperative Exam Cirrhosis Alcoholic (HCC) Cirrhosis Alcoholic (HCC) Hypertension Portal (HCC) documented in this encounter Care Teams Radiation / Chemistry Technician Relationship Specialty Start Date End Date Elsewhere, Pcp PCP - General Family Medicine 03/10/20 11/30/21 [facility]- [place] lab 08/25/21 Ervin Schroeder MD Referring Provider Family Medicine 03/24/[address] [place] [address] documented as of this encounter
--- OUTSIDE RECORDS SUMMARY | 2022-02-10 09:37 | XMS_ITS | Encounter Summary ---
:1990 Author Organization [facility] Address [address] [place] [address] Care Team Providers Name Role Phone Elsewhere, Pcp Primary Care Provider Unavailable Encounter Details Date Type Department Care Team Description 09/19/2021 Hospital Encounter Department of Matthew Jerome Abnorm al Liver Laboratory Medicine M.BSumaBSumaSSuma, M. D. Function Test in [address] [address] [place] [phone] (Work) [phone] Social History Tobacco Use Types Packs/Day Years [...] you attend christianity or Patient refused 2021 restorationism services? 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 [address] [place] [phone] 2 Rain Reyes R.N. [address] [place] [phone] Telemedicine Transplant [facility] 2 Brigid noyola M.D. [address] [place] [phone] Office Visit [facility] Internal [place], 2 Medicine Vernell Perez [address] [place] [phone] Lab Laboratory Medicine Karin, Olinda Gannon M.D., Ph.D. [address] [place] [phone] Lab Laboratory Medicine Olinda Frazier M.D., Ph.D. [address] [place] [phone] Office Visit Transplant Karin, 2 Adeline Gannon M.D., Ph.D. [address] [place] [phone] Appointment Radiology Matthew Jerome 2 YVikB.Lilian Stockton [address] [place] [phone] Appointment Gastroenterology and Adrianne, 2 Hepatology Yue Burciaga M.D. [address] [place] [phone] Office Visit Gastroenterology and Matthew Jerome 2 Hepatology Joshua RodriguezB.B.Lilian Stockton [address] [place] [address] [phone] Appointment Radiology Matthew Jerome 2 YElizabeth.B.B.Lilian Stockton [address] [place] [phone] Hospital Gastroenterology and Matthew Jerome Cirrhos is Alcoholic (HCC) 2 Encounter Hepatology Elizabeth Rodriguez.B.B.SLilian Moise [address] [place] [phone] Anesthesia Event Gastroenterology and Rl, 2 Hepatology Ervin Burgos M.D. [address] [place] [phone] Surgery Gastroenterology and Matthew Jerome ESOPHAG OGASTRODUODENOSCOPY 2 Hepatology Tyrell Rodriguez M.D. [address] [place] [phone] Scheduled Procedures Name Priority Associated Diagnoses Date/Time ESOPHAGOGASTRODUODENOSCOPY Cirrhosis Alc oholic (HCC) 03/20/2022 8:45 AM BEAN PICKER MACHINE OPERATOR Hypertension Portal (HCC) documented as [...] CDT eGFR-Black/Afric >90 >=60 09/19/2021 [place] an Mongolian mL/min/BSA 4:09 PM CDT Comment: ----ADDITIONAL INFORMATION---- [...] Address City/State/ZIP Code Phon e Number [facility]- [address] [place] [address] [facility] [place] [address] System in [place] [address] documented in this encounter Visit Diagnoses Diagnosis Abnormal Liver Function Test Cirrhosis Alcoholic (HCC) Cirrhosis Alcoholic (HCC) Hypertension Portal (HCC) documented in this encounter Care Teams Bindery Assistant Relationship Specialty Start Date End Date Elsewhere, Pcp PCP - General Family Medicine 03/10/20 11/30/21 [facility]- [place] lab 08/25/21 Ervin Schroeder MD Referring Provider Family Medicine 03/24/[address] [place] [address] documented as of this encounter
--- OUTSIDE RECORDS SUMMARY | 2022-02-10 09:37 | XMS_ITS | Encounter Summary ---
:1990 Author Organization [facility] Address [address] [place] [address] Care Team Providers Name Role Phone Elsewhere, Pcp Primary Care Provider Unavailable Reason for Visit Reason Comments Appointment PMR PT Encounter Details Date Type Department Care Team Description 09/15/2021 Clinical Department of Matthew Jerome Appointment (P MR Communication Gastroenterology in [place], M.B.B.S., PT) [facility] 1025 [facility] 1025 [place] [address] [place] [phone] Social History Tobacco Use Types Packs/Day Years [...] you attend hindu or Patient refused 2021 mosque services? 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 Thank you in advance Telephone Encounter - Andreas Lopez - 09/15/2021 11:[address] Queenie Henson could you please place an order for [place] for PMR PT appt. Pt would like to see in there is anything available while she is here for LTE. Thank you in advance documented in this encounter Plan of Treatment Upcoming Encounters Date Type Specialty Care Team Description Virtual Visit Transplant Matthew Jerome M .B.BSumaSLilian Moise 1025 [place] [address] 2 Rain Reyes R.N. [address] [place] [address] [phone] Telemedicine Transplant LinaDemarcus 2 Brigid noyola M.D. [address] [place] [address] [phone] Office Visit [facility], 2 Medicine Vernell Perez [address] [place] [phone] Lab Laboratory Medicine Karin, 2 Adeline Gannon M.D., Ph.D. [address] [place] [phone] Lab Laboratory Medicine Karin, 2 Adeline Gannon M.D., Ph.D. [address] [place] [address] [phone] Office Visit Transplant Karin, 2 Adeline Gannon M.D., Ph.D. [address] [place] [phone] Appointment Radiology Matthew Jerome 2, M.B.B.S., M.D. [address] [place] [phone] Appointment Gastroenterology and Adrianne, 2 Hepatology Yue Burciaga M.D. [address] [place] [address] [phone] Office Visit Gastroenterology and Matthew Jerome 2 Hepatology Tyrell Rodriguez M.D. [address] [place] [phone] Appointment Radiology Matthew Jerome 2 YTyrell M.D. [address] [place] [phone] Hospital Gastroenterology and Queenie Matthew Cirrhos is Alcoholic (HCC) 2 Encounter Hepatology Tyrell Rodriguez M.D. [address] [place] [phone] Anesthesia Event Gastroenterology and Rl, 2 Hepatology Ervin Burgos M.D. [address] [place] [address] [phone] Surgery Gastroenterology and Queenie Matthew ESOPHAG OGASTRODUODENOSCOPY 2 Hepatology Tyrell Rodriguez M.D. [address] [place] [address] [phone] Scheduled Procedures Name Priority Associated Diagnoses Date/Time ESOPHAGOGASTRODUODENOSCOPY Cirrhosis Alc oholic (HCC) 03/20/2022 8:45 AM CURRICULUM SPECIALIST Hypertension Portal (HCC) documented as of this encounter Visit Diagnoses Not on filedocumented in this encounter Additional Health Concerns Infection Onset Date Last Indicated Resolved Time COVID19 08/29/2021 08/29/2021 09/18/2021 8:31 AM CDT documented as of this encounter Care Teams Recreational Therapist Relationship Specialty Start Date End Date Elsewhere, Pcp PCP - General Family Medicine 03/10/20 11/30/21 [facility] [facility] 08/25/21 Ervin Schroeder MD Referring Provider Family Medicine 03/24/[address] [place] [phone] documented as of this encounter
--- OUTSIDE RECORDS SUMMARY | 2022-02-10 09:37 | XMS_ITS | Encounter Summary ---
:1990 Author Organization [facility] Address [address] [place] [address] Care Team Providers Name Role Phone Elsewhere, Pcp Primary Care Provider Unavailable Encounter Details Date Type Department Care Team Description 09/05/2021 Clinical Communication Department of Kerry Naranjo Gastroenterology in [place], [place] C.N.P., M.S.N. 1025 [facility] 1025 [place] [address] [place], [place] [phone] Social History Tobacco Use Types Packs/Day [...] you attend latter-day or Patient refused 2021 anglican services? 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 [address] [place] [phone] Telemedicine Transplant LinaFederico 2 Brigid noyola M.D. [address] [place] [phone] Office Visit Community Internal [facility], 2 Medicine Vernell Perez 300 [place] [address] Lab Laboratory Medicine Karin, 2 Adeline Gannon M.D., Ph.D. [address] [place] [phone] Lab Laboratory Medicine Karin, 2 Adeline Gannon M.D., Ph.D. [address] [place] [address] [phone] Office Visit Transplant Karin, 2 Adeline Gannon M.D., Ph.D. [address] [place] [phone] Appointment Radiology Matthew Jerome 2, M.B.BSumaSSuma, M.D. [address] [place] [phone] Appointment Gastroenterology and Adrianne, 2 Hepatology Yue Burciaga M.D. [address] [place] [phone] Office Visit Gastroenterology and Queenie Matthew 2 Hepatology Tyrell Rodriguez M.D. [address] [place] [phone] Appointment Radiology Matthew Jerome 2 Tyrell Rodriguez M.D. [address] [place] [phone] [facility] Gastroenterology and [facility] Cirrhos is Alcoholic (HCC) 2 Encounter Hepatology Tyrell Rodriguez M.D. [address] [place] [phone] Anesthesia Event Gastroenterology and Rl, 2 Hepatology Ervin Burgos M.D. [address] [place] [phone] Surgery Gastroenterology and [place] Matthew ESOPHAG OGASTRODUODENOSCOPY 2 Hepatology Tyrell Rodriguez M.D. [address] [place] [phone] Scheduled Orders Name Type Priority Associated [...] Cirrhosis Alc oholic (HCC) 03/20/2022 8:45 AM BINDER SELECTOR Hypertension Portal (HCC) documented as of this [...] documented as of this encounter Care Teams Job Placement Specialist Relationship Specialty Start Date End Date Elsewhere, Pcp PCP - General Family Medicine 03/10/20 11/30/21 [facility] [place] [facility] 08/25/21 Ervin Schroeder MD Referring Provider Family Medicine 03/24/[address] [place] [phone] documented as of this encounter
--- OUTSIDE RECORDS SUMMARY | 2022-02-10 09:37 | XMS_ITS | Encounter Summary ---
:1990 Author Organization [facility] Address [address] [place] [address] Care Team Providers Name Role Phone Elsewhere, Pcp Primary Care Provider Unavailable Reason for Referral Outpatient (Routine) - Closed Specialty Diagnoses / Procedures Referred By Contact Refer red To Contact Diagnoses Cirrhosis Alcoholic (HCC) Abnormal Liver Function Test Ascites Pretransplant Recipient Evaluation Exam Preoperative Exam Warren Hernández [facility] Procedures Echo Transthoracic (TTE) Lilian, M.P.H. [address] [place] [address] Referral ID Status Reason Start Date Expiration Date Visits Requ ested Visits Authorized [id number] Closed 08/31/2021 08/31/2022 1 1 Reason for Visit Outpatient (Routine) - Closed Specialty Diagnoses / Procedures Referred By Contact Refer red To Contact Diagnoses Cirrhosis Alcoholic (HCC) Abnormal Liver Function Test Ascites Pretransplant Recipient Evaluation Exam Preoperative Exam Warren Hernández, [facility] Procedures Echo Transthoracic (TTE) Lilian, M.P.H. [address] [place] [address] Referral ID Status Reason Start Date Expiration Date Visits Requ ested Visits Authorized [id number] Closed 08/31/2021 08/31/2022 1 1 Encounter Details Date Type Department Care Team Description 09/23/2021 Hospital Department of [place], Cirrhosis Alco holic (HCC); Encounter Cardiovascular Warren A, Abnormal Live r Function Test; Diseases in Lilian Holloway, M.P.H . Ascites; [place] [address] [place] [address] Pretransplant Recipient Evaluation Exam; 1025 [place], [place] [address] [phone] Social History Tobacco Use Types Packs/Day Years [...] you attend protestant or Patient refused 2021 christianity services? 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 [address] [place] [address] [phone] Telemedicine Transplant [facility] 2 Brigid noyola M.D. [address] [place] [phone] Office Visit Community Internal [facility], 2 Medicine Vernell Perez [address] [place] [phone] Lab Laboratory Medicine Karin, 2 Adeline Gannon M.D., Ph.D. [address] [place] [phone] Lab Laboratory Medicine Karin, 2 Adeline Gannon M.D., Ph.D. [address] [place] [phone] Office Visit Transplant Karin 2 Adeline Gannon M.D., Ph.D. [address] [place] [phone] Appointment Radiology aMtthew Jerome 2, M.B.B.S., MJules 1025 [place] [address] Appointment Gastroenterology demian Silver, 2 Hepatology Yue Burciaga M.D. [address] [place] [phone] Office Visit Gastroenterology and Matthew Jerome 2 Hepatology Tyrell Rodriguez M.D. [address] [place] [address] [phone] Appointment Radiology Matthew Jerome 2 Tyrell Rodriguez, Lilian [address] [place] [phone] Hospital Gastroenterology and Iachantell Matthew Cirrhos is Alcoholic (HCC) 2 Encounter Hepatology Tyrell Rodriguez M.D. [address] [place] [phone] Anesthesia Event Gastroenterology and Rl, 2 Hepatology Ervin Burgos M.D. [address] [place] [address] [phone] Surgery Gastroenterology and Queenie Matthew ESOPHAG OGASTRODUODENOSCOPY 2 Hepatology Tyrell Rodriguez, Lilian [address] [place] [phone] Scheduled Procedures Name Priority Associated Diagnoses Date/Time ESOPHAGOGASTRODUODENOSCOPY Cirrhosis Alc oholic (HCC) 03/20/2022 8:45 AM LEAD C DEVELOPER Hypertension Portal (HCC) documented as of this [...] COLOR AND CONTRAST (09/23/2021 4:39 PM CDT) [facility] Method Time Signature Ejection Fraction 66 MC [...] For the complete report, see the Order-L [employer] Documents. Narrative 09/23/2021 10:27 PM CDT For [...] For the complete report, see the Order-L [employer] Documents. Final Impressions 1. Normal left ventricular [...] protocol documented in this encounter Care Teams Bench Shear Operator Relationship Specialty Start Date End Date Elsewhere, Pcp PCP - General Family Medicine 03/10/20 11/30/21 [facility] 08/25/21 Ervin Schroeder MD Referring Provider Family Medicine 03/24/[address] [place] [phone] documented as of this encounter
--- OUTSIDE RECORDS SUMMARY | 2022-02-10 09:37 | XMS_ITS | Encounter Summary ---
:1990 Author Organization [facility] Address [address] [place] [address] Care Team Providers Name Role Phone Elsewhere, Pcp Primary Care Provider Unavailable Encounter Details Date Type Department Care Team Description 09/12/2021 Clinical Communication Department of Matthew Jerome Gastroenterology in M.BJhoan, Joshua Kru[address] [phone] Social History Tobacco Use Types Packs/Day Years [...] How often do you attend buddhist or Patient refused 2021 episcopal services? 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 - 09/15/2021 9:47 PM CDT Thanks so much Olga Telephone Encounter - Priscilla Castorena - 09/12/2021 12:02 PM CDT Patient was supposed to have an appointment for PMR CONS PT at [facility]. The appt has been cancelleddue [...] Transplant Matthew Jerome M .B.B.S., Lilian 10[address] [place] [address] 2 Rain Reyes R.N. [address] [place] [address] [phone] Telemedicine Transplant [facility] center[facility] 2 Brigid noyola M.D. [address] [place] [phone] Office Visit Community Internal [facility], 2 Medicine Vernell Perez [address] [place] [phone] Lab Laboratory Medicine Karin, 2 Adeline Gannon M.D., Ph.D. [address] [place] [address] [phone] Lab Laboratory Medicine Karin, 2 Adeline Gannon M.D., Ph.D. [address] [place] [address] [phone] Office Visit Transplant Karin 2 Adeline Gannon M.D., Ph.D. [address] [place] [phone] Appointment Radiology Matthew Jerome 2, M.B.B.S., Lilian [address] [place] [address] Appointment Gastroenterology and Adrianne, 2 Hepatology Yue Burciaga M.D. [address] [place] [address] Office Visit Gastroenterology and Matthew Jerome 2 Hepatology Tyrell Rodriguez M.D. [address] [place] [address] [phone] Appointment Radiology Luischantell Matthew 2 Tyrell Rodriguez M.D. [address] [place] [phone] [facility] Gastroenterology and Matthew Jerome Cirrhos is Alcoholic (HCC) 2 Encounter Hepatology Tyrell Rodriguez M.D. [address] [place] [phone] Anesthesia Event Gastroenterology and Rl, 2 Hepatology Ervin Burgos M.D. [address] [place] [phone] Surgery Gastroenterology and Queenie Matthew ESOPHAG OGASTRODUODENOSCOPY 2 Hepatology Tyrell Rodriguez M.D. [address] [place] [phone] Scheduled Procedures Name Priority Associated Diagnoses Date/Time ESOPHAGOGASTRODUODENOSCOPY Cirrhosis Alc oholic (HCC) 03/20/2022 8:45 AM BUS AND TROLLEY INSPECTING DISPATCHER Hypertension Portal (HCC) documented as of this encounter Visit Diagnoses Diagnosis Edema Leg - Primary Cirrhosis Alcoholic (HCC) Cirrhosis Alcoholic (HCC) Hypertension Portal (HCC) documented in this encounter Additional Health Concerns Infection Onset Date Last Indicated Resolved Time COVID19 08/29/2021 08/29/2021 09/18/2021 8:31 AM CDT documented as of this encounter Care Teams Brass Buffer Relationship Specialty Start Date End Date Elsewhere, Pcp PCP - General Family Medicine 03/10/20 11/30/21 [facility] 08/25/21 Ervin Schroeder MD Referring Provider Family Medicine 03/24/[address] [place] [address] documented as of this encounter
--- OUTSIDE RECORDS SUMMARY | 2022-02-10 09:37 | XMS_ITS | Encounter Summary ---
:1990 Author Organization [facility] Address [address] [place] [address] Care Team Providers Name Role Phone Elsewhere, Pcp Primary Care Provider Unavailable Reason for Referral Outpatient (Routine) - Closed Specialty Diagnoses / Procedures Referred By Contact Refer red To Contact Diagnoses Fatty Liver Failure Liver (HCC) Cirrhosis Alcoholic (HCC) Preoperative Exam Ascites Abnormal Liver Function Test Warren Hernández M.D., [facility] Region Procedures DX Chest AP or PA and Lateral 2 Views M.P.H. [address] [place] [address] Referral ID Status Reason Start Date Expiration Date Visits Requ ested Visits Authorized [id number] Closed 09/08/2021 09/08/2022 1 1 Reason for Visit Outpatient (Routine) - Closed Specialty Diagnoses / Procedures Referred By Contact Refer red To Contact Diagnoses Fatty Liver Failure Liver (HCC) Cirrhosis Alcoholic (HCC) Preoperative Exam Ascites Abnormal Liver Function Test Warren Hernández M.D., [facility] Region Procedures DX Chest AP or PA and Lateral 2 Views M.P.H. [address] [place] [address] Referral ID Status Reason Start Date Expiration Date Visits Requ ested Visits Authorized [id number] Closed 09/08/2021 09/08/2022 1 1 Encounter Details Date Type Department Care Team Description 09/22/2021 Hospital Encounter Department of Deena Hernández fred; Radiology, [place] Warren Schaefer M.D., Greg segal Liver (HCC); [facility], in M.P.H. Cirrhosis Alcoholic (HCC); [place], [place] [address] [facility] Preoperative Exam; 1025 [place], [place] Ascites; [place] [address] Abnormal Liver Function Test [phone] Social History [...] you attend episcopal or Patient refused 2021 episcopal services? 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 [address] [place] [phone] [facility]medicine [facility] 2 Brigid noyola M.D. [address] [place] [phone] Office Visit Community Internal [facility], 2 Medicine Vernell Perez [address] [place] [address] Lab Laboratory Medicine Karin, 2 Adeline Gannon M.D., Ph.D. [address] [place] [phone] Lab Laboratory Medicine Karin, 2 Adeline Gannon M.D., Ph.D. [address] [place] [phone] Office Visit Transplant Karin, 2 Adeline Gannon M.D., Ph.D. [address] [place] [phone] Appointment Radiology Matthew Jerome 2, M.B.B.S., MJules [address] [place] [address] Appointment Gastroenterology demian Silver, 2 Hepatology Yue Segal M.D. [address] [place] [address] Office Visit Gastroenterology and [facility] Matthew 2 Hepatology Tyrell Rodriguez M.D. [address] [place] [phone] Appointment Radiology Matthew Jerome 2 Tyrell Rodriguez M.D. [address] [place] [phone] [facility] Gastroenterology and [facility] Cirrhos is Alcoholic (HCC) 2 Encounter Hepatology Tyrell Rodriguez M.D. [address] [place] [phone] Anesthesia Event Gastroenterology and Rl, 2 Hepatology Ervin Burgos M.D. [address] [place] [phone] Surgery Gastroenterology and [facility] ESOPHAG OGASTRODUODENOSCOPY 2 Hepatology Tyrell Rodriguez M.D. [address] [place] [phone] Scheduled Procedures Name Priority Associated Diagnoses Date/Time ESOPHAGOGASTRODUODENOSCOPY Cirrhosis Alc oholic (HCC) 03/20/2022 8:45 AM INTERLOCKER MAINTAINER Hypertension Portal (HCC) documented as of this [...] (HCC) documented in this encounter Care Teams Yard Conductor Relationship Specialty Start Date End Date Elsewhere, Pcp PCP - General Family Medicine 03/10/20 11/30/21 [facility] [place] lab 08/25/21 Ervin Schroeder MD Referring Provider Family Medicine 03/24/[address] [place] [address] documented as of this encounter
--- OUTSIDE RECORDS SUMMARY | 2022-02-10 09:37 | XMS_ITS | Encounter Summary ---
:1990 Author Organization [facility] Address [address] [place] [address] Care Team Providers Name Role Phone Elsewhere, Pcp Primary Care Provider Unavailable Reason for Visit Reason Comments Medication Question Encounter Details Date Type Department Care Team Description 09/18/2021 Clinical Department of Aamir Spicer Gastroenterology in Felicita ParticaSanty [place], [place] L.P.N. 10[address] [facility] [phone] [place] [phone] 2 (Work) [phone] Social History Tobacco Use Types Packs/Day Years [...] you attend bahai or Patient refused 2021 muslim services? Do [...] or the highest technical, or vocational p [facility]am degree you have received? 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 [address] [place] [phone] Telemedicine [facility] 2 Brigid noyola M.D. [address] [place] [phone] Office Visit Community Internal [facility], 2 Medicine Vernell Perez [address] [place] [phone] Lab Laboratory Medicine Karin, 2 Adeline Gannon M.D., Ph.D. [address] [place] [address] [phone] Lab Laboratory Medicine Karin, 2 Adeline Gannon M.D., Ph.D. [address] [place] [address] [phone] Office Visit Transplant Karin, 2 Adeline Gannon M.D., Ph.D. [address] [place] [phone] Appointment Radiology Matthew Jerome 2, M.B.B.S., Lilian [address] [place] [phone] Appointment Gastroenterology and Adrianne, 2 Hepatology Yue Burciaga M.D. [address] [place] [phone] Office Visit Gastroenterology and Matthew Jerome 2 Hepatology Tyrell Rodriguez M.D. [address] [place] [phone] Appointment Radiology LuischantellMatthew 2 Tyrell Rodriguez M.D. [address] [place] [phone] [facility] Gastroenterology and Queenie Matthew Cirrhos is Alcoholic (HCC) 2 Encounter Hepatology Tyrell Rodriguez M.D. [address] [place] [phone] Anesthesia Event Gastroenterology and Rl, 2 Hepatology Ervin Burgos M.D. [address] [place] [phone] Surgery Gastroenterology and Queenie Matthew ESOPHAG OGASTRODUODENOSCOPY 2 Hepatology Vik RodriguezBLilian Bedolla [address] [place] [phone] Scheduled Procedures Name Priority Associated Diagnoses Date/Time ESOPHAGOGASTRODUODENOSCOPY Cirrhosis Alc oholic (HCC) 03/20/2022 8:45 AM JAVA TECH Hypertension Portal (HCC) documented as of this encounter Visit Diagnoses Diagnosis Anxiety - Primary Cirrhosis Alcoholic (HCC) Cirrhosis Alcoholic (HCC) Hypertension Portal (HCC) documented in this encounter Additional Health Concerns Infection Onset Date Last Indicated Resolved Time COVID19 08/29/2021 08/29/2021 09/18/2021 8:31 AM CDT documented as of this encounter Care Teams Hospital Educator Relationship Specialty Start Date End Date Elsewhere, Pcp PCP - General Family Medicine 03/10/20 11/30/21 [facility] 08/25/21 Ervin Schroeder MD Referring Provider Family Medicine 03/24/[address] [place] [phone] documented as of this encounter
--- OUTSIDE RECORDS SUMMARY | 2022-02-10 09:37 | XMS_ITS | Encounter Summary ---
:1990 Author Organization [facility] Address [address] [place] [address] Care Team Providers Name Role Phone Elsewhere, Pcp Primary Care Provider Unavailable Reason for Visit Reason Comments Hepatobiliary Encounter Details Date Type Department Care Team Description 09/19/2021 Clinical Communication Division of Edgar, Hepat obiliary Gastroenterology in [place], [place] Lilian, M.P.H. [address] [facility] [address] [place] [address] [place], [place] [phone] Social History Tobacco Use Types Packs/Day Years [...] you attend druze or Patient refused 2021 buddhist services? 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 - 09/22/2021 9:55 AM CDT SUBJECTIVE CHIEF COMPLAINT / REASON FOR CALL Hepatobiliary, CT abd, anxiety ASSESSMENT nurse phoned patient to discuss preference for CT abd at [place]. She was prescribed Ativan 1 mg to [...] is away today; nurse will check with [facility] for options. PLAN Anxiety related to claustrophobia related to CT abd scheduled for 14:45 today at [place]. Disposition/Recommendation: notified provider and awaiting recommendations. Information/Education: patient/caller able to teach back. Caller agreeable to plan of care: yes. The following references were used: nursing clinical judgement. 10:30 Addendum: Patient informed that [facility] (per Dr. Ramirez Driscoll) says she has not been seen here in [place] yet so does not feel comfortable prescribing a controlled substance for a procedure that usually is not performed with much sedation. She should contact [facility] or her local PCPif she seeks additional [...] this with [facility]. Wildlife Protector also explained that changed of sedation type may result in a change of date/time of CT scan and she likely would not be able to still have CT done today in [place] with a change of sedation type from oral Ativan. Patient expressed she would maybe be willing to try the CT scan as ordered. She will call and follow up with [facility]. documented in this encounter Plan of Treatment Upcoming Encounters Date Type Specialty Care Team Description Virtual Visit Transplant Matthew Jerome M .B.B.S., Lilian [address] [place] [address] 2 Rain Reyes R.N. [address] [place] [phone] Telemedicine Transplant Ashtyn 2 Brigid noyola M.D. [address] [place] [phone] Office Visit Community Internal [place], 2 Medicine Vernell Perez 300 [facility] [place] [phone] Lab Laboratory Medicine Karin, 2 Adeline Gannon M.D., Ph.D. [address] [place] [phone] Lab Laboratory Medicine Karin, 2 Adeline Gannon M.D., Ph.D. [address] [place] [phone] Office Visit Transplant Karin, 2 Adeline Gannon M.D., Ph.D. [address] [place] [phone] Appointment Radiology Matthew Jerome 2 Y M.B.B.SSuma, MJules [address] [place] [phone] Appointment Gastroenterology and [place], 2 Hepatology Yue Burciaga M.D. [address] [place] [phone] Office Visit Gastroenterology and Matthew Jerome 2 Hepatology Jennifer M.B.B.SSuma, Lilian [address] [place] [phone] Appointment Radiology Matthew Jerome 2 Y M.B.B.SSuma, Lilian [address] [place] [address] [phone] Hospital Gastroenterology and Mousa, Matthew Cirrhos is Alcoholic (HCC) 2 Encounter Hepatology Tyrell Rodriguez M.D. [address] [place] [address] [phone] Anesthesia Event Gastroenterology and Rl, 2 Hepatology Ervin Burgos M.D. [address] [place] [address] [phone] Surgery Gastroenterology and [place], Matthew ESOPHAG OGASTRODUODENOSCOPY 2 Hepatology Tyrell Rodriguez M.D. [address] [place] [address] [phone] Scheduled Procedures Name Priority Associated Diagnoses Date/Time ESOPHAGOGASTRODUODENOSCOPY Cirrhosis Alc oholic (HCC) 03/20/2022 8:45 AM MOTOR POLARIZER Hypertension Portal (HCC) documented as of this encounter Visit Diagnoses Diagnosis Anxiety - Primary Personal History Of Failed Moderate Jo tion Cirrhosis Alcoholic (HCC) Cirrhosis Alcoholic (HCC) Hypertension Portal (HCC) documented in this encounter Care Teams Audograph Operator Relationship Specialty Start Date End Date Elsewhere, Pcp PCP - General Family Medicine 03/10/20 11/30/21 [facility] [place] [facility] 08/25/21 Ervin Schroeder MD Referring Provider Family Medicine 03/24/[address] [place] [address] documented as of this encounter
--- OUTSIDE RECORDS SUMMARY | 2022-02-10 09:37 | XMS_ITS | Encounter Summary ---
:1990 Author Organization [facility] Address [address] [place] [address] Care Team Providers Name Role Phone Elsewhere, Pcp Primary Care Provider Unavailable Reason for Referral Outpatient (Routine) - Closed Specialty Diagnoses / Procedures Referred By Contact Refer red To Contact Diagnoses Fatty Liver Failure Liver (HCC) Cirrhosis Alcoholic (HCC) Preoperative Exam Ascites Abnormal Liver Function Test Warren Hernández M.D., [facility] Procedures Six Minute Walk M.P.H. [address] [place] [address] Referral ID Status Reason Start Date Expiration Date Visits Requ ested Visits Authorized [id number] Closed 09/08/2021 09/08/2022 1 1 Reason for Visit Outpatient (Routine) - Closed Specialty Diagnoses / Procedures Referred By Contact Refer red To Contact Diagnoses Fatty Liver Failure Liver (HCC) Cirrhosis Alcoholic (HCC) Preoperative Exam Ascites Abnormal Liver Function Test Warren Hernández M.D., [facility] Procedures Six Minute Walk M.P.H. [address] [place] [address] Referral ID Status Reason Start Date Expiration Date Visits Requ ested Visits Authorized [id number] Closed 09/08/2021 09/08/2022 1 1 Encounter Details Date Type Department Care Team Description 09/24/2021 Hospital Encounter Department of [place], Fatty Li fred; Pulmonary Warren A, Failure Liver ( HCC); Rehabilitation Lilian, M.P.H. Cirrhosis Alcoholic (HCC); Edgard Holloway [address] [facility] Preoperative Exam; [address] [place], [place] Ascites; [place] [phone] Abnormal Liver Function Test [phone] Social History Tobacco Use Types Packs/Day Years [...] attend oriental orthodox or Patient refused 2021 gnosticism services? 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 [address] [place] [phone] 2 Rain Reyes R.N. [address] [place] [phone] Telemedicine Transplant LinaDemarcus 2 Brigid noyola M.D. [address] [place] [address] [phone] Office Visit Community Internal Neda, 2 Medicine Vernell Perez [address] [place] [phone] Lab Laboratory Medicine Karin, 2 Adeline Gannon M.D., Ph.D. [address] [place] [phone] Lab Laboratory Medicine Karin, 2 Adeline Gannon M.D., Ph.D. [address] [place] [phone] Office Visit Transplant Karin 2 Adeline Gannon M.D., Ph.D. [address] [place] [phone] Appointment Radiology Luischantell Matthew 2 Tyrell Rodriguez M.D. [address] [place] [phone] Appointment Gastroenterology and [place], 2 Hepatology Yue Burciaga M.D. [address] [place] [phone] Office Visit Gastroenterology and Matthew Jerome 2 Hepatology Tyrell Rodriguez M.D. [address] [place] [phone] Appointment Radiology Matthew Jerome 2 Tyrell Rodriguez M.D. [address] [place] [phone] Hospital Gastroenterology and Luischantell Matthew Cirrhos is Alcoholic (HCC) 2 Encounter Hepatology Tyrell Rodriguez M.D. [address] [place] [phone] Anesthesia Event Gastroenterology and Rl, 2 Hepatology Ervin Burgos M.D. [address] [place] [phone] Surgery Gastroenterology and Queenie Matthew ESOPHAG OGASTRODUODENOSCOPY 2 Hepatology Tyrell Rodriguez M.D. 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
--- OUTSIDE RECORDS SUMMARY | 2022-02-10 09:37 | XMS_ITS | Encounter Summary ---
:1990 Author Organization [facility] Address [address] [place] [address] Care Team Providers Name Role Phone Elsewhere, Pcp Primary Care Provider Unavailable Reason for Visit Reason Comments Appointment PMR 09/23 Phone Contact PMR PT Encounter Details Date Type Department Care Team Description 09/14/2021 Clinical Ramirez Barajas, Camron coreas (PMR Communication Center for [facility], 09/23); Phone Transplantation and MCee., Ph.D. Contact (PMR PT) Clinical [facility] [address] in [facility] [address] [facility] [phone] Social History Tobacco Use Types Packs/Day Years [...] you attend protestant or Patient refused 2021 anglican services? 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 None of the [...] Transplant Matthew Jerome M .B.B.S., MJules [address] [place] [address] 2 Rain Reyes R.N. [address] [place] [address] [phone] Telemedicine Transplant [facility] 2 Brigid noyola M.D. [address] [place] [phone] Office Visit Community Internal [facility], 2 Medicine Vernell Perez [address] [place] [phone] Lab Laboratory Medicine Karin, 2 Adeline Gannon M.D., Ph.D. [address] [place] [phone] Lab Laboratory Medicine Karin, 2 Adeline Gannon M.D., Ph.D. [address] [place] [phone] Office Visit Transplant Karin 2 Adeline Gannon M.D., Ph.D. [address] [place] [phone] Appointment Radiology Matthew Jerome 2, M.B.B.S., MJules [facility] [place] [address] Appointment Gastroenterology and [place], 2 Hepatology Yue Burciaga M.D. [address] [place] [phone] Office Visit Gastroenterology and [place] 2 Hepatology Tyrell Rodriguez M.D. [address] [place] [address] [phone] Appointment Radiology Luischantell Matthew 2 Tyrell Rodriguez M.D. [address] [place] [phone] Hospital Gastroenterology and Matthew Jerome Cirrhos is Alcoholic (HCC) 2 Encounter Hepatology Tyrell Rodriguez M.D. [address] [place] [phone] Anesthesia Event Gastroenterology and Rl, 2 Hepatology Ervin Burgos M.D. [address] [place] [address] [phone] Surgery Gastroenterology and Matthew Jerome ESOPHAG OGASTRODUODENOSCOPY 2 Hepatology Tyrell Rodriguez, Lilian [address] [place] [address] [phone] Scheduled Procedures Name Priority Associated Diagnoses Date/Time ESOPHAGOGASTRODUODENOSCOPY Cirrhosis Alc oholic (HCC) 03/20/2022 8:45 AM DIRECTOR CORPORATE SALES Hypertension Portal (HCC) documented as of this encounter Visit Diagnoses Not on filedocumented in this encounter Additional Health Concerns Infection Onset Date Last Indicated Resolved Time COVID19 08/29/2021 08/29/2021 09/18/2021 8:31 AM CDT documented as of this encounter Care Teams Genetic Physician Relationship Specialty Start Date End Date Elsewhere, Pcp PCP - General Family Medicine 03/10/20 [facility] Ervin Schroeder MD Referring Provider Family Medicine 03/24/[address] [place] [phone] documented as of this encounter
--- OUTSIDE RECORDS SUMMARY | 2022-02-10 09:37 | XMS_ITS | Encounter Summary ---
:1990 Author Organization [facility] Address [address] [place] [address] Care Team Providers Name Role Phone Elsewhere, Pcp Primary Care Provider Unavailable Encounter Details Date Type Department Care Team Description 09/03/2021 Clinical Communication Division of Marco Zimmerman, Internal Medicine, [facility] [address] [place] [address] [place] [phone] [place], [place] [phone] (Work) [phone] Social History Tobacco Use Types Packs/Day Years [...] you attend orthodox or Patient refused 2021 judaism services? 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 - 09/03/2021 5:26 PM CDT [facility] TELEPHONE COMMUNICATION NOTE Technical Editor: None The patient was called regarding a [...] your primary care provider or present to [facility] emergency department for evaluation. Treatment Options Discussion [...] references were used: Nursing or Provider judgement, [facility] workflow, [facility] Protocols Marco Alberto M.D. [place] COVID Care Team [facility] and [facility] [place] documented in this encounter Plan of Treatment Upcoming Encounters Date Type Specialty Care Team Description Virtual Visit Transplant Matthew Jerome M .B.B.S., Lilian [address] [place] [phone] 2 Rain Reyes R.N. [address] [place] [phone] Telemedicine Transplant LinaDemarcus 2 Brigid noyola M.D. [address] [place] [phone] Office Visit [facility], 2 Medicine Vernell Perez [address] [place] [phone] Lab Laboratory Medicine Karin, 2 Adeline Gannon M.D., Ph.D. [address] [place] [phone] Lab Laboratory Medicine Karin, 2 Adeline Gannon M.D., Ph.D. [address] [place] [phone] Office Visit Transplant Karin, 2 Adeline Gannon M.D., Ph.D. [address] [place] [phone] Appointment Radiology Matthew Jerome 2, M.B.B.SSuma, MJules [address] [place] [address] Appointment Gastroenterology and Adrian[place], 2 Hepatology Yue Burciaga M.D. [address] [place] [phone] Office Visit Gastroenterology and Matthew Jerome 2 Hepatology Y, Lilian Santillan [address] [place] [address] [phone] Appointment Radiology [facility] 2 YTyrell M.D. [address] [place] [phone] Hospital Gastroenterology and [facility] Cirrhos is Alcoholic (HCC) 2 Encounter Hepatology Tyrell Rodriguez M.D. [address] [place] [phone] Anesthesia Event Gastroenterology and Rl, 2 Hepatology Ervin Burgos M.D. [address] [place] [address] [phone] Surgery Gastroenterology and [facility] ESOPHAG OGASTRODUODENOSCOPY 2 Hepatology Tyrell Rodriguez M.D. [address] [place] [phone] Scheduled Procedures Name Priority Associated Diagnoses Date/Time ESOPHAGOGASTRODUODENOSCOPY Cirrhosis Alc oholic (HCC) 03/20/2022 8:45 AM CAPACITOR REPAIRER Hypertension Portal (HCC) documented as of this encounter Visit Diagnoses Not on filedocumented in this encounter Additional Health Concerns Infection Onset Date Last Indicated Resolved Time COVID19 08/29/2021 08/29/2021 09/18/2021 8:31 AM CDT documented as of this encounter Care Teams Green Chain Puller Relationship Specialty Start Date End Date Elsewhere, Pcp PCP - General Family Medicine 03/10/20 11/30/21 [facility] [place] [facility] 08/25/21 Ervin Schroeder MD Referring Provider Family Medicine 03/24/[address] [place] [address] documented as of this encounter
--- OUTSIDE RECORDS SUMMARY | 2022-02-10 09:37 | XMS_ITS | Encounter Summary ---
:1990 Author Organization [facility] Address [address] [place] [address] Care Team Providers Name Role Phone Elsewhere, Pcp Primary Care Provider Unavailable Encounter Details Date Type Department Care Team Description 09/05/2021 Clinical Communication Division of Edgar, Gastroenterology in Warren Schaefer M.D.[place], [place] M.P.H. [address] [facility] [address] [place] [address] [place], [place] [phone] Social History Tobacco Use Types Packs/Day Years [...] you attend amish or Patient refused 2021 buddhist services? 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 Hernández ordered a variety of tests for patient ot complete closer to home. [facility] reachedout to patient to offer tests closer to home and patient stated she would rather drive to [place] for all testing. Due to patient preference, the following [facility] before we are able to schedule for patient in [place]. 1. BMD bone Density Spine and Hips [...] Virtual Visit Transplant Matthew Jerome M .B.BSumaSSuma, M.Slick. [address] [place] [address] 2 Rain Reyes R.N. [address] [place] [address] [phone] Telemedicine Transplant LinaDemarcus 2 Brigid noyola M.D. [address] [place] [phone] Office Visit Community Internal [facility], 2 Medicine Vernell Perez [address] [place] [phone] Lab Laboratory Medicine Karin, 2 Adeline Gannon M.D., Ph.D. [address] [place] [phone] Lab Laboratory Medicine Karin, 2 Adeline Gannon M.D., Ph.D. [address] [place] [phone] Office Visit Transplant Karin, 2 Adeline Gannon M.D., Ph.D. [address] [place] [phone] Appointment Radiology Matthew Jerome 2, M.B.B.S., MJules [address] [place] [address] Appointment Gastroenterology and Adrianne, 2 Hepatology Yue Burciaga M.D. [address] [place] [address] [phone] Office Visit Gastroenterology and Matthew Jerome 2 Hepatology Tryell Rodriguez M.D. [address] [place] [phone] Appointment Radiology Matthew Jerome 2 YTyrell M.D. [address] [place] [phone] Hospital Gastroenterology and Queenie Matthew Cirrhos is Alcoholic (HCC) 2 Encounter Hepatology Tyrell Rodriguez M.D. [address] [place] [phone] Anesthesia Event Gastroenterology and Rl, 2 Hepatology Ervin Burgos M.D. [address] [place] [address] [phone] Surgery Gastroenterology and Queenie Matthew ESOPHAG OGASTRODUODENOSCOPY 2 Hepatology Tyrell Rodriguez M.D. 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
--- OUTSIDE RECORDS SUMMARY | 2022-02-10 09:37 | XMS_ITS | Encounter Summary ---
:1990 Author Organization [facility] Address [address] [place] [address] Care Team Providers Name Role Phone Elsewhere, Pcp Primary Care Provider Unavailable Encounter Details Date Type Department Care Team Description 09/09/2021 Orders Only Department of Mousa, Matthew Y, Abnormal Angelica er Gastroenterology in M.B.Yelena. M. Slick. Function Test [address] (Primary Dx) 10[address] [place] [address] [phone] Social History Tobacco Use Types Packs/Day Years [...] How often do you attend quaker or Patient refused 2021 mu-ism services? Do you belong to any clubs or No 02/10/2022 organizations such as quaker groups, unions, fraternal [...] or the highest technical, or vocational p [facility] degree you have received? 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 1025 [place] [phone] 2 Rain Reyes R.N. [address] [place] [phone] Telemedicine Transplant LinaFederico 2 Brigid noyola M.D. [address] [place] [address] [phone] Office Visit Community Internal Neda, 2 Solitario Perez P.A.-C. 300 [place] [address] Lab Laboratory Medicine Karin, 2 Adeline Gannon M.D., Ph.D. [address] [place] [phone] Lab Laboratory Medicine Saranela, 2 Adeline Gannon M.D., Ph.D. [address] [place] [phone] Office Visit Transplant Karin, 2 Adeline Gannon M.D., Ph.D. [address] [place] [phone] Appointment Radiology Matthew Jerome 2 YJoshuaB.B.Lilian [place] [address] [place] [phone] Appointment Gastroenterology and Adrianne, 2 Hepatology Yue Burciaga M.D. [address] [place] [phone] Office [facility] 2 Hepatology Joshua RodriguezB.B.Lilian [place] [address] [place] [phone] Appointment Radiology Matthew Jerome 2 YElizabeth.B.B.SLilian Moise [address] [place] [phone] [facility] Cirrhos is Alcoholic (HCC) 2 Encounter Hepatology Joshua RodriguezB.B.Lilian [place] [address] [place] [phone] Anesthesia Event Gastroenterology and Rl, 2 Hepatology Ervin Burgos M.D. [address] [place] [phone] Surgery Gastroenterology and Queenie, Matthew ESOPHAG OGASTRODUODENOSCOPY 2 Hepatology Tyrell Rodriguez M.D. 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 Hypertension Portal (HCC) documented as of this encounter Results Creatinine with Estimated GFR (09/19/2021 1:32 PM CDT) athologist Signature Creatinine 0.68 0.59 - 09/19/2021 OWAT 1.04 mg/dL 4:09 PM CDT eGFR-Black/Afric >90 >=60 09/19/2021 OW[place] an Iranian mL/min/BSA 4:09 PM CDT Comment: ----ADDITIONAL INFORMATION---- [...] Organization Address City/State/ZIP Code Phon e Number [facility]- [address] [place] [address] [place] [address] System in [place] [address] documented in this encounter Visit Diagnoses Diagnosis Abnormal Liver Function Test - Primary Cirrhosis Alcoholic (HCC) Cirrhosis Alcoholic (HCC) Hypertension Portal (HCC) documented in this encounter Additional Health Concerns Infection Onset Date Last Indicated Resolved Time COVID19 08/29/2021 08/29/2021 09/18/2021 8:31 AM CDT documented as of this encounter Care Teams Binding Folder Machine Relationship Specialty Start Date End Date Elsewhere, Pcp PCP - General Family Medicine 03/10/20 11/30/21 [facility] [place] [facility] 08/25/21 Ervin Schroeder MD Referring Provider Family Medicine 03/24/211979 [address] [place] [address] documented as of this encounter
--- OUTSIDE RECORDS SUMMARY | 2022-02-10 09:37 | XMS_ITS | Encounter Summary ---
:1990 Author Organization [facility] Address [address] [place] [address] Care Team Providers Name Role Phone Elsewhere, Pcp Primary Care Provider Unavailable Reason for Referral MRI/CAT/PET Scan (Routine) - Closed Specialty Diagnoses / Procedures Referred By Contact Refer red To Contact Radiology Diagnoses Fatty Liver Failure Liver (HCC) Cirrhosis Alcoholic (HCC) Preoperative Exam Ascites Abnormal Liver Function Test Warren Hernández M.D., [facility] Procedures CT Abdomen without and with IV Contrast [facility] [address] [place] [address] Referral ID Status Reason Start Date Expiration Date Visits Requ ested Visits Authorized [id number] Closed 09/08/2021 09/08/2022 1 1 Reason for Visit MRI/CAT/PET Scan (Routine) - Closed Specialty Diagnoses / Procedures Referred By Contact Refer red To Contact Radiology Diagnoses Fatty Liver Failure Liver (HCC) Cirrhosis Alcoholic (HCC) Preoperative Exam Ascites Abnormal Liver Function Test Warren Hernández M.D., [facility] Region Procedures CT Abdomen without and with IV Contrast [facility] [address] [place] [address] Referral ID Status Reason Start Date Expiration Date Visits Requ ested Visits Authorized [id number] Closed 09/08/2021 09/08/2022 1 1 Encounter Details Date Type Department Care Team Description 09/22/2021 Hospital Encounter Department of Deena Hernández Li fred; Radiology, [place] Warren Schaefer M.D., Greg segal Liver (HCC); [facility], in [facility] Cirrhosis Alcoholic (HCC); [place], [place] [address] [facility] Preoperative Exam; [address] [place], [place] Ascites; [place] [address] Abnormal Liver Function Test [phone] Social History [...] attend oriental orthodox or Patient refused 2021 anabaptism services? 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 documented as of this encounter Plan of Treatment Upcoming Encounters Date Type Specialty Care Team Description Virtual Visit Transplant Matthew Jerome M .B.B.S., Lilian [address] [place] [address] 2 Rain Reyes R.N. [address] [place] [address] [phone] Telemedicine [facility] 2 Brigid noyola M.D. [address] [place] [phone] Office Visit Community Internal Neda, 2 Medicine Vernell Perez [address] [place] [phone] Lab Laboratory Medicine Karin, 2 Adeline Gannon M.D., Ph.D. [address] [place] [phone] Lab Laboratory Medicine Karin, 2 Adeline Gannon M.D., Ph.D. [address] [place] [phone] Office Visit Transplant Karin 2 Adeline Gannon M.D., Ph.D. [address] [place] [phone] Appointment Radiology Matthew Jerome 2, M.B.B.S., M.D. 10[address] [place] [address] Appointment Gastroenterology demian Silver, 2 Hepatology Yue Segal M.D. [address] [place] [address] Office Visit Gastroenterology and Mt[place]ell Matthew 2 Hepatology Tyrell Rodriguez M.D. [address] [place] [phone] Appointment Radiology Queenie Matthew 2 Tyrell Rodriguez M.D. [address] [place] [phone] [facility] Cirrhos is Alcoholic (HCC) 2 Encounter Hepatology Tyrell Rodriguez M.D. [address] [place] [phone] Anesthesia Event Gastroenterology and Rl, 2 Hepatology Ervin Burgos M.D. [address] [place] [phone] Surgery G[facility] ESOPHAG OGASTRODUODENOSCOPY 2 Hepatology Tyrell Rodriguez M.D. [address] [place] [phone] Scheduled Procedures Name Priority Associated Diagnoses Date/Time ESOPHAGOGASTRODUODENOSCOPY Cirrhosis Alc oholic (HCC) 03/20/2022 8:45 AM MANAGER SHAREPOINT Hypertension Portal (HCC) documented as of this [...] dose documented in this encounter Care Teams Preschool Education Director Relationship Specialty Start Date End Date Elsewhere, Pcp PCP - General Family Medicine 03/10/20 11/30/21 [facility] [place] lab 08/25/21 Ervin Schroeder MD Referring Provider Family Medicine 03/24/[address] [place] [address] documented as of this encounter
--- OUTSIDE RECORDS SUMMARY | 2022-02-10 09:38 | XMS_ITS | Encounter Summary ---
:1990 Author Organization [facility] Address [address] [place] [address] Care Team Providers Name Role Phone Elsewhere, Pcp Primary Care Provider Unavailable Encounter Details Date Type Department Care Team Description 09/01/2021 Clinical Communication Department of Kerry Naranjo Gastroenterology in [place], [place] C.N.P., M.S.N. [address] [facility] 10[address] [place] [address] [place], [place] [phone] Social History Tobacco Use Types Packs/Day [...] you attend mandaen or Patient refused 2021 baptist services? 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 10[address] [place] [address] 2 Rain Reyes R.N. [address] [place] [address] Telemedicine Transplant LinaFederico 2 Brigid noyola M.D. [address] [place] [phone] Office Visit Community Internal Carlos, 2 Medicine Vernell Perez [address] [place] [phone] Lab Laboratory Medicine Karin, 2 Adeline Gannon M.D., Ph.D. [address] [place] [phone] Lab Laboratory Medicine Karin, 2 Adeline Gannon M.D., Ph.D. [address] [place] [phone] Office Visit Transplant Karin, 2 Adeline Gannon M.D., Ph.D. [address] [place] [phone] Appointment Radiology Matthew Jerome 2 M.B.B.SSuma, MJules [address] [place] [phone] Appointment Gastroenterology and Adrianne, 2 Hepatology Yue Burciaga M.D. [address] [place] [phone] Office Visit Gastroenterology and Matthew Jerome 2 Hepatology Jennifer M.B.B.SSuma, MJules [address] [place] [phone] Appointment Radiology Matthew Jerome 2 YTyrell, Lilian [address] [place] [address] [phone] Hospital Gastroenterology and [facility] Cirrhos is Alcoholic (HCC) 2 Encounter Hepatology Tyrell Rodriguez M.D. [address] [place] [phone] Anesthesia Event Gastroenterology and [facility], 2 Hepatology Ervin Burgos M.D. [address] [place] [address] [phone] Surgery Gastroenterology and [facility] ESOPHAG OGASTRODUODENOSCOPY 2 Hepatology Tyrell Rodriguez M.D. 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
--- OUTSIDE RECORDS SUMMARY | 2022-02-10 09:38 | XMS_ITS | Encounter Summary ---
:1990 Author Organization [facility] Address [address] [place] [address] Care Team Providers Name Role Phone Elsewhere, Pcp Primary Care Provider Unavailable Reason for Visit Reason Comments Medical Information Encounter Details Date Type Department Care Team Description 08/30/2021 Nurse Triage Department of Joshua Resendiz, Medical Information Medicine, [facility], [facility], [place] [address] [place] [phone] Social History Tobacco Use Types Packs/Day Years [...] attend jehovah's witness or Patient refused 2021 adventist services? Do [...] or the highest technical, or vocational p [employer] degree you have received? 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 https://www.cdc.gov/coronavirus/2019-ncov/vaccines/about-vaccines/index.html?s_c xo=71710:covid%20vaccine:sonja.ga:p:RG:GM:gen:PTN: Calling to request: information The recommended disposition is Manage symptoms at home. documented in this encounter Plan of Treatment Upcoming Encounters Date Type Specialty Care Team Description Virtual Visit Transplant Matthew Jerome M .B.B.S., Lilian [address] [place] [address] 2 Rain Reyes R.N. [address] [place] [phone] Telemedicine Transplant LinaDemarcus 2 Brigid noyola M.D. [address] [place] [phone] Office Visit Community Internal [facility], 2 Medicine Vernell Perez [address] [place] [phone] Lab Laboratory Medicine Karin, 2 Adeline Gannon M.D., Ph.D. [address] [place] [phone] Lab Laboratory Medicine Karin, 2 Adeline Gannon M.D., Ph.D. [address] [place] [phone] Office Visit Transplant Karin, 2 Adeline Gannon M.D., Ph.D. [address] [place] [phone] Appointment Radiology Matthew Jerome 2, M.B.B.S., Lilian [address] [place] [address] Appointment Gastroenterology and Adrianne, 2 Hepatology Yue Burciaga M.D. [address] [place] [address] [phone] Office Visit Gastroenterology and Matthew Jerome 2 Hepatology Tyrell Rodriguez M.D. [address] [place] [phone] Appointment Radiology Matthew Jerome 2 YTyrell M.D. [address] [place] [phone] Hospital Gastroenterology and Queenie Matthew Cirrhos is Alcoholic (HCC) 2 Encounter Hepatology Tyrell Rodriguez M.D. [address] [place] [phone] Anesthesia Event Gastroenterology and Rl, 2 Hepatology Ervin Burgos M.D. [address] [place] [phone] Surgery Gastroenterology and Queenie Matthew ESOPHAG OGASTRODUODENOSCOPY 2 Hepatology Tyrell Rodriguez M.D. 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
--- OUTSIDE RECORDS SUMMARY | 2022-02-10 09:38 | XMS_ITS | Encounter Summary ---
:1990 Author Organization [facility] Address [address] [place] [address] Care Team Providers Name Role Phone Elsewhere, Pcp Primary Care Provider Unavailable Reason for Referral Appointment Request (Routine) - Closed Specialty Diagnoses / Procedures Referred By Contact Refer red To Contact Diagnoses Cirrhosis Alcoholic (HCC) Ascites Anemia Macrocytic Thrombocytopenia (HCC) Deficiency Coagulation Acquired (HCC) Kerry Naranjo APRN, Procedures Prothrombin Time (PT) C.N.P., M.S.N. [address] [place] [phone] Referral ID Status Reason Start Date Expiration Date Visits Requ ested Visits Authorized [id number] Closed 07/07/2021 07/07/2022 1 Reason for Visit Appointment Request (Routine) - Closed Specialty Diagnoses / Procedures Referred By Contact Refer red To Contact Diagnoses Cirrhosis Alcoholic (HCC) Ascites Anemia Macrocytic Thrombocytopenia (HCC) Deficiency Coagulation Acquired (HCC) Kerry Naranjo APRN, Procedures Prothrombin Time (PT) C.N.P., M.S.N. [address] [place] [phone] Referral ID Status Reason Start Date Expiration Date Visits Requ ested Visits Authorized [id number] Closed 07/07/2021 07/07/2022 1 Encounter Details Date Type Department Care Team Description 08/28/2021 Hospital Encounter Department of Kerry Naranjo Cirrhos is Alcoholic (HCC); Laboratory Medicine S, PARAPLANNER, Ascites; in Moira Mejía, Anemia Macrocy tic; [place] M.S.N. Thrombocytopenia (HCC); [address] 1025 [facility] Deficiency Coagulation Acquired ([place] [address] [phone] Social History Tobacco Use Types Packs/Day Years [...] you attend buddhism or Patient refused 2021 islam services? 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 [address] [place] [phone] 2 Rain Reyes R.N. [address] [place] [address] [phone] Telemedicine Transplant LinaFederico 2 Brigid noyola M.D. [address] [place] [phone] Office Visit Community Internal [place], 2 Medicine Vernell Perez [address] [place] [address] Lab Laboratory Medicine Karin, 2 Adeline Gannon M.D., Ph.D. [address] [place] [phone] Lab Laboratory Medicine Karin, 2 Adeline Gannon M.D., Ph.D. [address] [place] [phone] Office Visit Transplant Karin, 2 Adeline Gannon M.D., Ph.D. [address] [place] [phone] Appointment Radiology Matthew Jerome 2, M.B.B.S., MJules [address] [place] [address] Appointment Gastroenterology demian Silver, 2 Hepatology Yue Burciaga M.D. [address] [place] [phone] Office Visit Gastroenterology and [facility] 2 Hepatology Tyrell Rodriguez M.D. [address] [place] [phone] Appointment Radiology [facility] 2 YTyrell M.D. [address] [place] [phone] Hospital Gastroenterology and [facility] Cirrhos is Alcoholic (HCC) 2 Encounter Hepatology Tyrell Rodriguez M.D. [address] [place] [phone] Anesthesia Event Gastroenterology and Rl, 2 Hepatology Ervin Burgos M.D. [address] [place] [phone] Surgery Gastroenterology and [facility] ESOPHAG OGASTRODUODENOSCOPY 2 Hepatology Tyrell Rodriguez M.D. 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 Thrombocytopenia (HCC) Deficiency Coagulation Acquired (HCC) documented in this encounter Results (ABNORMAL) Prothrombin Time (PT) (08/28/2021 5:01 PM CDT) [facility] Method Time Signature Prothrombin 25.9 (H) 9.4 [...] Venous) CDT PM CDT Kerry Naranjo APRN, C.N.P., M.S.N. LAB BLOOD ADD-ON Performing Organization Address City/State/ZIP Code Phon e Number [facility]- [address] [place] [address] [place] [address] System in [place] [address] documented in this encounter Visit Diagnoses Diagnosis Cirrhosis Alcoholic (HCC) Ascites Anemia Macrocytic Thrombocytopenia (HCC) Deficiency Coagulation Acquired (HCC) Cirrhosis Alcoholic (HCC) Cirrhosis Alcoholic (HCC) Hypertension Portal (HCC) documented in this encounter Care Teams Senior Mobile Solutions Architect Relationship Specialty Start Date End Date Elsewhere, Pcp PCP - General Family Medicine 03/10/20 11/30/21 [facility] [place] lab 08/25/21 Ervin Schroeder MD Referring Provider Family Medicine 03/24/211979 [address] [place] [address] documented as of this encounter
--- OUTSIDE RECORDS SUMMARY | 2022-02-10 09:38 | XMS_ITS | Encounter Summary ---
:1990 Author Organization [facility] Address [address] [place] [address] Care Team Providers Name Role Phone Elsewhere, Pcp Primary Care Provider Unavailable Reason for Visit Reason Comments Patient Education Encounter Details Date Type Department Care Team Description 09/03/2021 Clinical Communication Department of Loreta Vazquez ent Education Infusion Therapy in M, R.N. [place], [place] [address] [place] [address] Social History Tobacco Use Types [...] How often do you attend confucianist or Patient refused 2021 sikh services? 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 [address] [place] [address] [phone] Telemedicine Transplant LinaFederico 2 Brigid noyola M.D. [address] [place] [address] [phone] Office Visit Community Internal Neda, 2 Solitario Perez P.A.-C. 300 [place] [address] Lab Laboratory Medicine Karin, 2 Adeline Gannon M.D., Ph.D. [address] [place] [phone] Lab Laboratory Medicine Olinda Frazier M.D., Ph.D. [address] [place] [phone] Office Visit Transplant Karin, Olinda Gannon M.D., Ph.D. [address] [place] [phone] Appointment Radiology Matthew Jerome 2 YVikBLilian Bedolla [address] [place] [phone] Appointment Gastroenterology and Adrianne, 2 Hepatology Yue Burciaga M.D. [address] [place] [phone] Office Visit Gastroenterology and Matthew Jerome 2 Hepatology Vik RodriguezBLilian Bedolla [address] [place] [phone] Appointment Radiology Matthew Jerome 2 YVikBLilian Bedolla [address] [place] [address] [phone] Hospital Gastroenterology and Matthew Jerome Cirrhos is Alcoholic (HCC) 2 Encounter Hepatology Vik RodriguezBLilian Bedolla [address] [place] [phone] Anesthesia Event Gastroenterology and Rl, 2 Hepatology Ervin Burgos M.D. [address] [place] [phone] Surgery Gastroenterology and Queenie Matthew ESOPHAG OGASTRODUODENOSCOPY 2 Hepatology Tyrell Rodriguez M.D. [address] [place] [phone] Scheduled Procedures Name Priority Associated Diagnoses Date/Time ESOPHAGOGASTRODUODENOSCOPY Cirrhosis Alc oholic (HCC) 03/20/2022 8:45 AM CASINO FLOOR PERSON Hypertension Portal (HCC) documented as of this encounter Visit Diagnoses Not on filedocumented in this encounter Additional Health Concerns Infection Onset Date Last Indicated Resolved Time COVID19 08/29/2021 08/29/2021 09/18/2021 8:31 AM CDT documented as of this encounter Care Teams Human Resources Benefits Assistant Relationship Specialty Start Date End Date Elsewhere, Pcp PCP - General Family Medicine 03/10/20 11/30/21 [facility] [place] lab 08/25/21 Ervin Schroeder MD Referring Provider Family Medicine 03/24/[address] [place] [address] documented as of this encounter
--- OUTSIDE RECORDS SUMMARY | 2022-02-10 09:38 | XMS_ITS | Encounter Summary ---
:1990 Author Organization [facility] Address [address] [place] [address] Care Team Providers Name Role Phone Elsewhere, Pcp Primary Care Provider Unavailable Encounter Details Date Type Department Care Team Description 09/01/2021 Clinical Communication Department of Matthew Jerome Gastroenterology in M.BJhoan, Joshua Kru[address] [phone] Social History Tobacco Use Types Packs/Day Years [...] you attend religious or Patient refused 2021 jainism services? 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 [place] is wondering if there is a day in which you would see this patient after they have all the testing. documented in this encounter Plan of Treatment Upcoming Encounters Date Type Specialty Care Team Description Virtual Visit Transplant Matthew Jerome M .B.BSumaSSuma, M.D. [address] [place] [phone] 2 Rain Reyes R.NSuma [address] [place] [phone] Telemedicine Transplant LinaFederico 2 Brigid noyola M.D. [address] [place] [phone] Office Visit [facility]ic, 2 Medicine Vernell Perez [address] [place] [phone] Lab Laboratory Medicine Karin, 2 Adeline Gannon M.D., Ph.D. [address] [place] [phone] Lab Laboratory Medicine Karin, 2 Adeline Gannon M.D., Ph.D. [address] [place] [phone] Office Visit Transplant Karin, 2 Adeline Gannon M.D., Ph.D. [address] [place] [phone] Appointment Radiology Matthew Jerome 2, M.B.B.Lilian Stockton [address] [place] [phone] Appointment Gastroenterology and Adrianne, 2 Hepatology Yue Burciaga M.D. [address] [place] [phone] Office Visit Gastroenterology and Matthew Jerome 2 Hepatology Joshua RodriguezBSumaB.SLilian Moise [address] [place] [phone] Appointment Radiology Queenei Matthew 2 YTyrell M.D. [address] [place] [phone] Hospital Gastroenterology and [facility] Matthew Cirrhos is Alcoholic (HCC) 2 Encounter Hepatology Tyrell Rodriguez M.D. [address] [place] [phone] Anesthesia Event Gastroenterology and [facility], 2 Hepatology Ervin Burgos M.D. [address] [place] [phone] Surgery Gastroenterology and [facility] ESOPHAG OGASTRODUODENOSCOPY 2 Hepatology Tyrell Rodriguez M.D. [address] [place] [phone] Scheduled Procedures Name Priority Associated Diagnoses Date/Time ESOPHAGOGASTRODUODENOSCOPY Cirrhosis Alc oholic (HCC) 03/20/2022 8:45 AM SAMPLE SUPERVISOR Hypertension Portal (HCC) documented as of this encounter Visit Diagnoses Not on filedocumented in this encounter Additional Health Concerns Infection Onset Date Last Indicated Resolved Time COVID19 08/29/2021 08/29/2021 09/18/2021 8:31 AM CDT documented as of this encounter Care Teams Psych Therapist Relationship Specialty Start Date End Date Elsewhere, Pcp PCP - General Family Medicine 03/10/20 11/30/21 [facility] [place] lab 08/25/21 Ervin Schroeder MD Referring Provider Family Medicine 03/24/[address] [place] [phone] documented as of this encounter
--- OUTSIDE RECORDS SUMMARY | 2022-02-10 09:38 | XMS_ITS | Encounter Summary ---
:1990 Author Organization [facility] Address [address] [place] [address] Care Team Providers Name Role Phone Elsewhere, Pcp Primary Care Provider Unavailable Reason for Visit Reason Comments Phone Contact Records 08/03 Encounter Details Date Type Department Care Team Description 08/29/2021 Clinical Department of Matthew Jerome Phone Contact Communication Gastroenterology in Vik RodriguezB.S., (Record s 08/03) [employer], [place] M.DSuma [address] [facility] 10[address] [place] [address] [place] [phone] Social History Tobacco Use Types Packs/Day Years [...] How often do you attend temple or Patient refused 2021 rastafarian services? Do you belong to any clubs or No 02/10/2022 organizations such as temple groups, unions, fraternal [...] highest technical, or vocational p [facility] degree you have received? 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 [address] [place] [phone] Telemedicine Transplant LinaFederico 2 Brigid noyola M.D. [address] [place] [phone] Office Visit [facility], 2 Medicine Vernell Perez [address] [place] [phone] Lab Laboratory Medicine Karin, 2 Adeline Gannon M.D., Ph.D. [address] [place] [phone] Lab Laboratory Medicine Karin, 2 Adeline Gannon M.D., Ph.D. [address] [place] [phone] Office Visit Transplant Karin, 2 Adeline Gannon M.D., Ph.D. [address] [place] [phone] Appointment Radiology Matthew Jerome 2, M.B.BSumaSSuma, MJules [address] [place] [phone] Appointment Gastroenterology demian Silver, 2 Hepatology Yue Burciaga M.D. [address] [place] [phone] Office Visit Gastroenterology and Matthew Jerome 2 Hepatology Tyrell Rodriguez, Lilian [address] [place] [phone] Appointment Radiology Matthew Jerome 2 YTyrell M.D. [address] [place] [phone] Hospital Gastroenterology and Matthew Jerome Cirrhos is Alcoholic (HCC) 2 Encounter Hepatology Tyrell Rodriguez M.D. [address] [place] [phone] Anesthesia Event Gastroenterology and Rl, 2 Hepatology Ervin Burgos M.D. [address] [place] [phone] Surgery Gastroenterology and Matthew Jerome ESOPHAG OGASTRODUODENOSCOPY 2 Hepatology Tyrell Rodriguez M.D. [address] [place] [phone] Scheduled Procedures Name Priority Associated Diagnoses Date/Time ESOPHAGOGASTRODUODENOSCOPY Cirrhosis Alc oholic (HCC) 03/20/2022 8:45 AM BRAILLE AND TALKING BOOKS CLERK Hypertension Portal (HCC) documented as of this encounter Visit Diagnoses Not on filedocumented in this encounter Additional Health Concerns Infection Onset Date Last Indicated Resolved Time COVID19 Pending 08/29/2021 08/29/2021 08/29/2021 11:29 PM CDT documented as of this encounter Care Teams Secondary History Teacher Relationship Specialty Start Date End Date Elsewhere, Pcp PCP - General Family Medicine 03/10/20 11/30/21 [facility] [place] lab 08/25/21 Ervin Schroeder MD Referring Provider Family Medicine 03/24/[address] [place] [phone] documented as of this encounter
--- OUTSIDE RECORDS SUMMARY | 2022-02-10 09:38 | XMS_ITS | Encounter Summary ---
:1990 Author Organization [facility] Address [address] [place] [address] Care Team Providers Name Role Phone Elsewhere, Pcp Primary Care Provider Unavailable Encounter Details Date Type Department Care Team Description 09/03/2021 Virtual Visit Division of [facility] Marco Alberto A bnormal Liver Internal Medicine, M.D. Function Test [facility] in [address] [place] [address] [place] [phone] [place], [place] [phone] (Work) [phone] Social History Tobacco Use Types Packs/Day Years [...] you attend jainism or Patient refused 2021 samaritan services? 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 - 09/03/2021 5:24 PM CDT Note in error. documented in this encounter Plan of Treatment Upcoming Encounters Date Type Specialty Care Team Description Virtual Visit Transplant Matthew Jerome M .B.B.S., M.D. 10[address] [place] [phone] 2 Rain Reyes R.N. [address] [place] [phone] Telemedicine Transplant LinaFederico 2 Brigid noyola M.D. [address] [place] [phone] Office Visit [facility] Internal Deanovic, 2 Medicine Vernell Perez [address] [place] [address] [place] [phone] Lab Laboratory Medicine Karin, 2 Adeline Gannon M.D., Ph.D. [address] [place] [phone] Lab Laboratory Medicine Karin, 2 Adeline Gannon M.D., Ph.D. [address] [place] [phone] Office Visit Transplant Karin, 2 Adeline Gannon M.D., Ph.D. [address] [place] [phone] Appointment Radiology Matthew Jerome 2 Y, M.B.B.SSuma, MJules [address] [place] [phone] Appointment Gastroenterology and Adrianne, 2 Hepatology Yue Burciaga M.D. [address] [place] [phone] Office Visit Gastroenterology and Matthew Jerome 2 Hepatology Jennifer M.B.B.SSuma, Lilian [address] [place] [address] [phone] Appointment Radiology Matthew Jerome 2 Y M.B.B.SLilian Moise [address] [place] [phone] Hospital Gastroenterology and Mousa, Matthew Cirrhos is Alcoholic (HCC) 2 Encounter Hepatology Tyrell Rodriguez M.D. [address] [place] [address] [phone] Anesthesia Event Gastroenterology and Rl, 2 Hepatology Ervin Burgos M.D. [address] [place] [address] [phone] Surgery Gastroenterology and [place], Matthew ESOPHAG OGASTRODUODENOSCOPY 2 Hepatology Tyrell Rodriguez M.D. [address] [place] [address] [phone] Scheduled Procedures Name Priority Associated Diagnoses Date/Time ESOPHAGOGASTRODUODENOSCOPY Cirrhosis Alc oholic (HCC) 03/20/2022 8:45 AM CHILD WELFARE SOCIAL WORKER Hypertension Portal (HCC) documented as of this encounter Visit Diagnoses Diagnosis Abnormal Liver Function Test Cirrhosis Alcoholic (HCC) Cirrhosis Alcoholic (HCC) Hypertension Portal (HCC) documented in this encounter Additional Health Concerns Infection Onset Date Last Indicated Resolved Time COVID19 08/29/2021 08/29/2021 09/18/2021 8:31 AM CDT documented as of this encounter Care Teams Doctor Of Naprapathy Relationship Specialty Start Date End Date Elsewhere, Pcp PCP - General Family Medicine 03/10/20 11/30/21 [facility] [place] lab 08/25/21 Ervin Schroeder MD Referring Provider Family Medicine 03/24/[address] [place] [address] documented as of this encounter
--- OUTSIDE RECORDS SUMMARY | 2022-02-10 09:38 | XMS_ITS | Encounter Summary ---
:1990 Author Organization [facility] Address [address] [place] [address] Care Team Providers Name Role Phone Elsewhere, Pcp Primary Care Provider Unavailable Encounter Details Date Type Department Care Team Description 08/27/2021 Orders Only Department of Mousa, Matthew Y, Cirrhosis [facility] Gastroenterology in Joshua Santillan ([facility]) (Primary Dx) [place], [place] 1025 [facility] 1025 [place] [phone] Social History Tobacco Use Types Packs/Day Years [...] you attend gnosticism or Patient refused 2021 taoist services? 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 10[address] [place] [phone] 2 Rain Reyes R.N. [address] [place] [phone] Telemedicine Transplant Ashtyn 2 Brigid noyola M.D. [address] [place] [address] [phone] Office Visit Community Internal Neda, 2 Solitario Perez P.A.-C. [address] [place] [phone] Lab Laboratory Medicine Karin, 2 Adeline Gannon M.D., Ph.D. [address] [place] [phone] Lab Laboratory Medicine Karin, 2 Adeline Gannon M.D., Ph.D. [address] [place] [phone] Office Visit Transplant Karin, 2 Adeline Gannon M.D., Ph.D. [address] [place] [phone] Appointment Radiology Matthew Jerome 2 YJoshuaB.B.Lilian Stockton [address] [place] [phone] Appointment Gastroenterology and Adrianne 2 Hepatology Yue Burciaga M.D. [address] [place] [phone] [facility] 2 Hepatology Joshua RodriguezB.B.Lilian Stockton [address] [place] [phone] Appointment Radiology Matthew Jerome 2 Y M.B.B.SLilian Moise [address] [place] [phone] [facility] Cirrhos is Alcoholic (HCC) 2 Encounter Hepatology Joshua RodriguezB.BLilian Bedolla [address] [place] [phone] Anesthesia Event Gastroenterology and Rl, 2 Hepatology Ervin Burgos M.D. [address] [place] [phone] Surgery Gastroenterology and Mousa, Matthew ESOPHAG OGASTRODUODENOSCOPY 2 Hepatology Tyrell Rodriguez M.D. [address] [place] [phone] Scheduled Procedures Name Priority Associated Diagnoses Date/Time ESOPHAGOGASTRODUODENOSCOPY Cirrhosis Alc oholic (HCC) 03/20/2022 8:45 AM CARPENTER WOODEN TANK ERECTING Hypertension Portal (HCC) documented as of this encounter Visit Diagnoses Diagnosis Cirrhosis Alcoholic (HCC) - Primary Cirrhosis Alcoholic (HCC) Cirrhosis Alcoholic (HCC) Hypertension Portal (HCC) documented in this encounter Care Teams Poultry Helper Relationship Specialty Start Date End Date Elsewhere, Pcp PCP - General Family Medicine 03/10/20 11/30/21 [facility] [place] lab 08/25/21 Ervin Schroeder MD Referring Provider Family Medicine 03/24/[address] [place] [phone] documented as of this encounter
--- OUTSIDE RECORDS SUMMARY | 2022-02-10 09:38 | XMS_ITS | Encounter Summary ---
:1990 Author Organization [facility] Address [address] [place] [address] Care Team Providers Name Role Phone Elsewhere, Pcp Primary Care Provider Unavailable Encounter Details Date Type Department Care Team Description 08/29/2021 Orders Only Department of Mousa, Matthew Y, Deficiency C oagulation Acquired (HCC) (Primary Dx); Gastroenterology in Joshua Santillan Cirrhosis Alcoholic (HCC) [place], [place] 1025 [facility] 1025 [place] [address] [phone] Social History Tobacco Use Types Packs/Day Years [...] you attend uatsdin or Patient refused 2021 druze services? 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 [address] [place] [address] [phone] Telemedicine Transplant Ashtyn 2 Brigid noyola M.D. [address] [place] [address] [phone] Office Visit [facility] Internal Neda, 2 Solitario Perez P.A.-C. [address] [place] [phone] Lab Laboratory Medicine Olinda Frazier M.D., Ph.D. [address] [place] [phone] Lab Laboratory Medicine Olinda Frazier M.D., Ph.D. [address] [place] [phone] Office Visit Transplant Karin, Olinda Gannon M.D., Ph.D. [address] [place] [phone] Appointment Radiology Matthew Jerome 2 YJoshuaBSumaBLilian Bedolla [address] [place] [phone] Appointment Gastroenterology and Adrianne, 2 Hepatology Yue Burciaga M.D. [address] [place] [phone] Office Visit Gastroenterology and [facility] 2 Hepatology Joshua RodriguezBSumaBLilian Bedolla [address] [place] [phone] Appointment Radiology Matthew Jerome 2 Elizabeth Rodriguez.B.B.Lilian Stockton [address] [place] [address] [phone] [facility] Cirrhos is Alcoholic (HCC) 2 Encounter Hepatology Joshua RodriguezBSumaBLilian Bedolla [address] [place] [phone] Anesthesia Event Gastroenterology and Rl, 2 Hepatology Ervin Burgos M.D. [address] [place] [address] [phone] Surgery Gastroenterology and Mousa, Matthew ESOPHAG OGASTRODUODENOSCOPY 2 Hepatology Tyrell Rodriguez M.D. [address] [place] [phone] Scheduled Procedures Name Priority Associated Diagnoses Date/Time ESOPHAGOGASTRODUODENOSCOPY Cirrhosis Alc oholic (HCC) 03/20/2022 8:45 AM SENIOR JAVA UI DEVELOPER Hypertension Portal (HCC) documented as of this encounter Visit Diagnoses Diagnosis Deficiency Coagulation Acquired (HCC) - Primary Cirrhosis Alcoholic (HCC) Cirrhosis Alcoholic (HCC) Cirrhosis Alcoholic (HCC) Hypertension Portal (HCC) documented in this encounter Care Teams Waterway Traffic Checker Relationship Specialty Start Date End Date Elsewhere, Pcp PCP - General Family Medicine 03/10/20 11/30/21 [facility] [place] lab 08/25/21 Ervin Schroeder MD Referring Provider Family Medicine 03/24/[address] [place] [phone] documented as of this encounter
--- OUTSIDE RECORDS SUMMARY | 2022-02-10 09:38 | XMS_ITS | Encounter Summary ---
:1990 Author Organization [facility] Address [address] [place] [address] Care Team Providers Name Role Phone Elsewhere, Pcp Primary Care Provider Unavailable Reason for Referral Transplant (Routine) - Closed Specialty Diagnoses / Procedures Referred By Contact Refer brianda To Contact [facility] Lilian, M.P.H. [address] [place] [address] Referral ID Status Reason Start Date Expiration Date Visits Requ ested Visits Authorized [id number] Closed 08/26/2021 08/26/2022 1 1 ransplant (Routine) - Authorized Specialty Diagnoses / Procedures Referred By Contact Refer brianda To Contact Transplant Surgery / Diagnoses Cirrhosis Alcoholic (HCC) Abnormal Liver Function Test Ascites Pretransplant Recipient Evaluation Exam Preoperative Exam Warren Connor [facility] Transplant Lilian, M.P.H. [address] [place] [address] Referral ID Status Reason Start Date Expiration Date Visits V isits Requested Authorized [id number] Authorized 08/25/2021 08/25/2022 1 1 utpatient (Routine) - Closed Specialty Diagnoses / Procedures Referred By Contact Refer red To Contact Diagnoses Cirrhosis Alcoholic (HCC) Abnormal Liver Function Test Ascites Pretransplant Recipient Evaluation Exam Preoperative Exam Warren Connor M.D., [facility] Procedures BMD Bone Density Spine Hips M.P.H. [address] [place] [address] Referral ID Status Reason Start Date Expiration Date Visits Requ ested Visits Authorized [id number] Closed 08/25/2021 08/25/2022 1 1 ransplant (Routine) - Closed Specialty Diagnoses / Procedures Referred By Contact Refer red To Contact Transplant Surgery / Diagnoses Cirrhosis Alcoholic (HCC) Abnormal Liver Function Test Ascites Pretransplant Recipient Evaluation Exam Preoperative Exam Warren Connor [facility] Transplant M.Jeri, M.P.H. [address] [place] [address] Referral ID Status Reason Start Date Expiration Date Visits Requ ested Visits Authorized [id number] Closed 08/25/2021 08/25/2022 1 1 ransplant (Routine) - Closed Specialty Diagnoses / Procedures Referred By Contact Refer red To Contact Transplant Surgery / Diagnoses Cirrhosis Alcoholic (HCC) Abnormal Liver Function Test Ascites Pretransplant Recipient Evaluation Exam Preoperative Exam Warren Connor [facility] Transplant M.Jeri, M.P.H. [address] [place] [address] Referral ID Status Reason Start Date Expiration Date Visits Requ ested Visits Authorized [id number] Closed 08/25/2021 08/25/2022 1 1 utpatient (Routine) - Closed Specialty Diagnoses / Procedures Referred By Contact Refer red To Contact Preventive Medicine Diagnoses Cirrhosis Alcoholic (HCC) Abnormal Liver Function Test Ascites Pretransplant Recipient Evaluation Exam Preoperative Exam Warren Connor [facility] Lilian, M.P.H. [address] [place] [address] Referral ID Status Reason Start Date Expiration Date Visits Requ ested Visits Authorized [id number] Closed 08/25/2021 08/25/2022 1 1 utpatient (Routine) - Closed Specialty Diagnoses / Procedures Referred By Contact Refer red To Contact Pulmonary Medicine / Diagnoses Cirrhosis Alcoholic (HCC) Abnormal Liver Function Test Ascites Pretransplant Recipient Evaluation Exam Preoperative Exam Warren Connor [facility] Nicotine Dependence Lilian, M.P.H. [address] [place] [address] Referral ID Status Reason Start Date Expiration Date Visits Requ ested Visits Authorized [id number] Closed 08/25/2021 08/25/2022 1 1 utpatient (Routine) - Closed Specialty Diagnoses / Procedures Referred By Contact Refer red To Contact Diagnoses Cirrhosis Alcoholic (HCC) Abnormal Liver Function Test Ascites Pretransplant Recipient Evaluation Exam Preoperative Exam Warren Connor M.D., [facility] Procedures ECG 12 Lead M.P.H. [address] [place] [address] Referral ID Status Reason Start Date Expiration Date Visits Requ ested Visits Authorized [id number] Closed 08/25/2021 08/25/2022 1 1 utpatient (Routine) - Closed Specialty Diagnoses / Procedures Referred By Contact Refer red To Contact Diagnoses Cirrhosis Alcoholic (HCC) Abnormal Liver Function Test Ascites Pretransplant Recipient Evaluation Exam Preoperative Exam Warren Connor M.D., [facility] Procedures Short renal clearance: Iothalamate (Renal Studies Unit) M.P.H. [address] [place] [address] Referral ID Status Reason Start Date Expiration Date Visits Requ ested Visits Authorized [id number] Closed 08/25/2021 08/25/2022 1 1 Specialty Diagnoses / Procedures Referred By Contact Refer red To Contact [facility] [address] [place] [address] Referral ID Status Reason Start Date Expiration Date Visits Requ ested Visits Authorized utpatient (Routine) - Closed Specialty Diagnoses / Procedures Referred By Contact Refer red To Contact Pharmacy Diagnoses Cirrhosis Alcoholic (HCC) Abnormal Liver Function Test Ascites Pretransplant Recipient Evaluation Exam Preoperative Exam Warren Connor M.D., [facility] M.P.H. [address] [place] [address] Referral ID Status Reason Start Date Expiration Date Visits Requ ested Visits Authorized [id number] Closed 08/25/2021 08/25/2022 1 1 ransplant (Routine) - Closed Specialty Diagnoses / Procedures Referred By Contact Refer red To Contact Transplant Surgery / Diagnoses Cirrhosis Alcoholic (HCC) Abnormal Liver Function Test Ascites Pretransplant Recipient Evaluation Exam Preoperative Exam Warren Connor [facility] Transplant Lilian, M.P.H. [address] [place] [address] Referral ID Status Reason Start Date Expiration Date Visits Requ ested Visits Authorized [id number] Closed 08/25/2021 08/25/2022 1 1 ransplant (Routine) - Closed Specialty Diagnoses / Procedures Referred By Contact Refer red To Contact Transplant Surgery / Diagnoses Cirrhosis Alcoholic (HCC) Abnormal Liver Function Test Ascites Pretransplant Recipient Evaluation Exam Preoperative Exam Warren Connor [facility] Transplant Lilian, M.P.H. [address] [place] [address] Referral ID Status Reason Start Date Expiration Date Visits Requ ested Visits Authorized [id number] Closed 08/25/2021 08/25/2022 1 1 ransplant (Routine) - Closed Specialty Diagnoses / Procedures Referred By Contact Refer red To Contact Transplant Surgery / Diagnoses Cirrhosis Alcoholic (HCC) Abnormal Liver Function Test Ascites Pretransplant Recipient Evaluation Exam Preoperative Exam Warren Connor [facility] Transplant Lilian, M.P.H. [address] [place] [address] Referral ID Status Reason Start Date Expiration Date Visits Requ ested Visits Authorized [id number] Closed 08/25/2021 08/25/2022 1 1 ransplant (Routine) - Closed Specialty Diagnoses / Procedures Referred By Contact Refer red To Contact Transplant Surgery / Diagnoses Cirrhosis Alcoholic (HCC) Abnormal Liver Function Test Ascites Pretransplant Recipient Evaluation Exam Preoperative Exam Warren Connor [facility] Transplant Lilian, M.P.H. [address] [place] [address] Referral ID Status Reason Start Date Expiration Date Visits Requ ested Visits Authorized [id number] Closed 08/25/2021 08/25/2022 1 1 ransplant (Routine) - Closed Specialty Diagnoses / Procedures Referred By Contact Refer red To Contact Transplant Surgery / Diagnoses Cirrhosis Alcoholic (HCC) Abnormal Liver Function Test Ascites Pretransplant Recipient Evaluation Exam Preoperative Exam Warren Cononr [facility] Transplant Lilian, M.P.H. [address] [place] [address] Referral ID Status Reason Start Date Expiration Date Visits Requ ested Visits Authorized [id number] Closed 08/25/2021 08/25/2022 1 1 Reason for Visit Reason Comments Referral - Liver Txp Phone screen Appointment Request (Routine) - Pending Review Specialty Diagnoses / Procedures Referred By Contact Refer red To Contact Transplant Diagnoses [facility] Procedures Referral ID Status Reason Start Date Expiration Date Visits V isits Requested Authorized [id number] Pending 08/21/2021 08/21/2022 1 1 Review Encounter Details Date Type Department Care Team Description 08/25/2021 Nurse Only Laney Canela Re ferral - Liver Txp [facility] M.A.N., R.N., (Phone screen) and Clinical Regeneration C.C.T. C. in [facility] [phone] [facility] (Work) [place] [phone] Social History Tobacco Use Types Packs/Day [...] you attend christianity or Patient refused 2021 anglican services? Do [...] or the highest technical, or vocational p [facility] degree you have received? 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 Roge Schroeder Facility: [facility] Location: [facility] Box Car Checker: Kerry Naranjo NP /Dr. Jerome Facility: [facility] Location: [facility] Fax: Preferred lab: [facility] Lab Location: [place] Fax: Patient online messaging interest/discussed? [x] Yes [] No Comment: Additional orders needed at time of evaluation: hx eating disorder Serologist Utilized: [] Yes [x] No Prior to starting the phone screen process, the following information was verbalized to educate the patient on the Evaluation Process. Received authorization for liver transplant referral. Information for Liver Transplant Candidates [id number] was reviewed with the patient via telephone call. Confirmed her interest in pursuing a liver transplant evaluation at [facility]. The patient verbalized understanding of the [...] Transplant Matthew Jerome M .B.B.S., M.D. [address] [place] [phone] 2 Rain Reyes R.N. [address] [place] [phone] Telemedicine Transplant LinaFederico 2 Brigid noyola M.D. [address] [place] [phone] Office Visit [facility] 2 Solitario Perez P.A.-C. [address] [place] [phone] Lab Laboratory Medicine Karin, 2 Adeline Gannon M.D., Ph.D. [address] [place] [phone] Lab Laboratory Medicine Karin, 2 Adeline Gannon M.D., Ph.D. [address] [place] [phone] Office Visit Transplant Karin, 2 Adeline Gannon M.D., Ph.D. [address] [place] [phone] Appointment Radiology Matthew Jerome 2 YJoshuaBSumaB.SLilian Moise [address] [place] [phone] Appointment Gastroenterology and Adrianne, 2 Hepatology Yue Burciaga M.D. [address] [place] [phone] Office Visit Gastroenterology and [facility] 2 Hepatology Joshua RodriguezBSumaB.SLilian Moise [address] [place] [phone] Appointment Radiology Matthew Jerome 2 YElizabeth.B.B.SLilian Moise [address] [place] [phone] [facility] Gastroenterology and [facility] Cirrhos is Alcoholic (HCC) 2 Encounter Hepatology Joshua RodriguezBSumaBLilian Bedolla [address] [place] [phone] Anesthesia Event Gastroenterology and Rl, 2 Hepatology Ervin Burgos M.D. [address] [place] [phone] Surgery Gastroenterology and Mousa, Matthew ESOPHAG OGASTRODUODENOSCOPY 2 Hepatology Tyrell Rodriguez M.D. 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 Hypertension Portal (HCC) Scheduled Referrals Name Type Priority Associated Order Schedule Diagnoses Transplant - Outpatient Referral Routine Cirrhosis Alcoholic E xpected: Financial assessment (HCC) 09/22/2021 consult (clinic) Abnormal Liver (Approxim ate), Function Test Expires: Ascites 12/01/2022 Pretransplant Recipient Evaluation Exam Preoperative Exam Transplant - Lung Outpatient Referral Routine Cirrhosis Alcoho lic Expected: transplant consult ([facility]) 09/22/2021 (clinic) Abnormal Liver (Approximate) , Function Test Expires: Ascites 12/01/2022 Pretransplant Recipient Evaluation Exam Preoperative Exam Transplant - Medical Outpatient Referral Routine Cirrhosis Alc oholic Expected: nutrition therapy (HCC) 09/22/2021 consult (clinic) Abnormal Liver (Approxim ate), Function Test Expires: Ascites 12/01/2022 Pretransplant Recipient Evaluation Exam Preoperative Exam Transplant - Social Outpatient Referral Routine Cirrhosis Alco holic Expected: work consult ([facility]) 09/22/2021 (clinic) Abnormal Liver (Approximate) , Function Test Expires: Ascites 12/01/2022 Pretransplant Recipient Evaluation Exam Preoperative Exam Transplant - Surgery Outpatient Referral Routine Cirrhosis Alc oholic Expected: consult (clinic) ([facility]) 09/22/2021 Abnormal Liver (Approximate) , Function Test Expires: Ascites 12/01/2022 Pretransplant Recipient Evaluation Exam Preoperative Exam Pharmacy - Outpatient Referral Routine Cirrhosis Alcoholic E xpected: Medication therapy ([facility]) 09/22/2021 management - Abnormal Liver (Approximate) , transplant consult Function Test Expires: (clinic) Ascites 12/01/2022 Pretransplant Recipient Evaluation Exam Preoperative Exam Transplant - Liver Outpatient Referral Routine Cirrhosis Alcoh olic Expected: pre education visit ([facility]) 09/22/2021 (clinic) Abnormal Liver (Approximate) , Function Test Expires: Ascites 12/01/2022 Pretransplant Recipient Evaluation Exam Preoperative Exam Nicotine Dependence Outpatient Referral Routine Cirrhosis Alco holic Expected: - Counseling consult ([facility]) 10/01/2021 (clinic) Abnormal Liver (Approximate) , Function Test Expires: Ascites 12/01/2022 Pretransplant Recipient Evaluation Exam Preoperative Exam Preventive Medicine Outpatient Referral Routine Cirrhosis Alco holic Expected: - Preventive ([facility]) 10/01/2021 services consult Abnormal Liver (Approxim ate), (clinic) Function Test Expires: Ascites 12/01/2022 Pretransplant Recipient Evaluation Exam Preoperative Exam Transplant - Outpatient Referral Routine Cirrhosis Alcoholic E xpected: Psychiatry and ([facility]) 09/22/2021 Psychology consult Abnormal Liver (Approx imate), (clinic) Function Test Expires: Ascites 12/01/2022 Pretransplant Recipient Evaluation Exam Preoperative Exam Transplant - Outpatient Referral Routine Cirrhosis Alcoholic E xpected: Psychiatry and ([facility]) 09/22/2021 Psychology consult Abnormal Liver (Approx imate), (clinic) Function Test Expires: Ascites 12/01/2022 Pretransplant Recipient Evaluation Exam Preoperative Exam Transplant - Outpatient Referral Routine Cirrhosis Alcoholic E xpected: Psychiatry and ([facility]) 09/22/2021, Psychology consult Abnormal Liver Expires : [...] Mineral Density (BMD) analysis perf ormed on Prezacor with serial number [id number]. ? FINDINGS: Left Hip: Femur Neck: BMD [...] Mineral Density (BMD) analysis perf ormed on Prezac[employer] with serial number [id number]. FINDINGS: Left Hip: Femur Neck: BMD = [...] CDT) P athologist Signature FVC 4.04 L [facility] FVC% 111 % [facility] FVCLLN 2.88 L [facility] FEV1 3.62 L [facility] FEV1% 118 % [facility] [id number] 2.45 L [facility] FEV1/FVC 90 % LLANES [place] SU[address] FEV1/FVCLLN 73 % [facility] FEF 25-75 5.30 L/sec ROSALIA [place] SU[address] [id number]% 154 % [place]IA [place] SU[address] [id number] 2.20 L/sec [facility] SVC 4.19 L [place] SUITE RV 1.17 L [facility] SU[facility] RVULN 2.33 L [facility] SU[facility] TLC 5.36 L [facility] SU[facility] TLC% 111 % [place]IA [place] SU[address] TLCLLN 3.47 L ROS[place]IA [place] SUITE RV/TLC 22 % ROSALIA [place] SU[address] RV/TLC% 72 % ROSAL[place] SUITE RV/TLCuln 44 % ROSALIA [place] SUITE DLCO 16.63 ml/min/mmHg [place] SUITE DLCO% 77 % [facility] SU[facility] DLCOlln 15.76 ml/min/mmHg [facility] SU[facility] DLCOc 20.09 ml/min/mmHg [facility] SU[facility] DLCOc% 94 % [place]IA [place] SU[address] VA 5.32 L [facility] SU[facility] VA% 115 % [facility] SU[facility] VAlln 3.76 L [facility] SU[facility] Height 159.00 [facility] Weight in Kg 59.70 [place] SU[address] BMI 23.6 [place] SUITE Specimen (Source) Anatomical Collection Method Collection Time Re ceived Time Location / / Volume Laterality 10/07/2021 2:32 PM CDT Impressions [facility] - 10/10/2021 8:25 AM C DT [...] Organization Address City/State/ZIP Code Phon e Number [facility] [address] [facility] [address] [place] Ethyl Glucuronide Screen with Reflex, Urine (09/30/2021 8:23 AM CDT) [facility] Method Time Signature Ethyl Negative Cutoff: 09/30/2021 [facility] Glucuronide Scrn 500 ng/mL 11:12 AM CDT w/Reflex, U Comment: ----ADDITIONAL INFORMATION---- This test was developed and its performa nce characteristics determined by [facility] in a manner consistent with CLIA [...] Address City/State/ZIP Code Phon e Number [facility] [address] [place], [place] [address] SU[facility] [place] [address] Laboratory Medicine and Pathology [address] [place] (ABNORMAL) Bacterial Culture, Aerobic + Susc, Urine (09/30/2021 8:23 AM CDT) Component Value Ref Test Analysis Performed At [facility] Method Time Signature Urine Culture STAPHYLOCOCCUS [...] Address City/State/ZIP Code Phon e Number [facility] - [address] [place] [address] [address] [place] [address] [facility] [address] [facility] (ABNORMAL) Drug Abuse Survey with Confirmation, Panel 9, Urine (09/30/2021 8:23 AM CDT) Component Value Ref Test Analysis Performed At [facility] [place] Method Time Signature Alcohol Negative Cutoff: 09/30/2021 [...] characteristics were determi foreign by [facility] in a manner consistent with CLIA [...] Address City/State/ZIP Code Phon e Number [facility] [address] [place], [place] [address] SU[facility]ENTER [facility] [place] [address] Laboratory Medicine and Pathology [address] [place] Urinalysis with Microscopic: Urine, Midstream (09/30/2021 8:23 AM CDT) [facility] gist Method Time Signature Source Urine, [...] M.P.H. LAB URINE ORDERABLES Performing Organization Address [facility] Phon e Number [facility] - 200 [place], [place] [address] [place] [address] Transplant ABO Confirmation (09/30/2021 7:43 AM CDT) P athologist Signature Transplant ABO B Pos 09/30/2021 ETRM Confirmation 11:13 AM CDT Specimen Anatomical Collection Method Collection Time Receive d Time (Source) Location / / Volume Laterality Blood (Blood, 09/30/2021 7:43 AM 10/01/19 Venous) CDT 10:06 AM CDT Warren Connor M.D., M.P.H. LAB BLOOD BANK TEST OR DERABLES Performing Organization Address [facility] Phon e Number [facility] - [address] ETRM [address] (ABNORMAL) Hemoglobin A1c (09/30/2021 7:39 AM [...] M.P.H. LAB BLOOD ADD-ON Performing Organization Address City/[facility] Code Phon e Number [facility] - [address] [place] [address] [facility] [address] (ABNORMAL) CBC no call back, reflex T/S HGB <8 (09/30/2021 7:39 AM CDT) [facility] Method Time Signature Hemoglobin 8.9 (L) 11.6 [...] LAB BLOOD NON ADD-ON Performing Organization Address [facility] Phon e Number [facility] - [address] [place], [place] [address] [address] [place] [address] [facility] [address] (ABNORMAL) Dafbs-7-Jazenmwpulh Proteotype S/Z by LC-MS/MS (09/30/2021 7:38 AM CDT) athologist [facility] Bhqvr-6-Dvzavk 211 (H) 100 - 190 10/01/2021 [facility] ypsin, S mg/dL 9:47 AM CDT Comment: ----ADDITIONAL INFORMATION---- Method: Nephelometry Interpretation S Mutation: Negative 10/02/2021 3:3 2 PM CDT [facility] Z Mutation: Negative Results most consistent with MM phenotype. Comment: ----ADDITIONAL INFORMATION---- This test was developed and its performa nce characteristics determined by [facility] in a manner consistent with CLIA requirements. This test has not been cleared or approved by the [place] and Drug Administration. Specimen Anatomical Collection Method Collection Time Receive d Time (Source) Location / / Volume Laterality Blood (Blood, 09/30/2021 7:38 AM 10/02/19 6:06 Venous) CDT AM CDT Warren Connor M.D., M.P.H. LAB BLOOD NON ADD-ON Performing Organization Address City/[facility]/ZIP Code Phon e Number [facility] [address] [place], [place] [address] SU[address] [facility]ENTER [facility] [place] [address] Laboratory Medicine and Pathology [address] [place] Phosphatidylethanol (Peth), whole blood- Sent Out Lab (09/30/2021 7:38 AM CDT) Component Value Ref Range Test Analysis Performed Pathologis t Method Time At [facility] Phosphatidylethanol NEGATIVE NEGATIVE 10/03/2021 MTI (PEth) ng/mL 10:27 PM CDT Comment: Analyzed compound: PEth 16:0/18:1. ? 2-nqnycadak-2-bgsboj-nn-npyfags-3 -phosphoethanol. ? Analysis performed by Liquid Chromatogra [...] LAB BLOOD NON ADD-ON Performing Organization Address City/State/[facility] Code Phon e Number [employer] [address] [place] [address] 2 [facility] [employer] hCG (Human Chorionic Gonadotropin), Quantitative, (09/30/2021 7:38 [...] Address City/State/ZIP Code Phon e Number [facility] - 200 [place] [address] [address] [place] [address] [facility] [address] (ABNORMAL) AFP (Alpha-Fetoprotein), Tumor Marker (09/30/2021 7:38 AM CDT) P athologist Signature Alpha-Fetoprote 14 (H) ng/mL 09/30/2021 [facility] in, Tumor 4:01 PM CDT Marker, S Comment: ----REFERENCE VALUE---- <8.4 Reference values are for non- subjects only; production of AFP elevates values in women. ----ADDITIONAL INFORMATION---- In this Richie Albion assay AFP concen trations are <8.4 ng/mL [...] method is an immunoenzymatic assay manufactured by [employer] (Former[employer]). and is tested on the [employer] Th[employer] DxI 800. Values obtained with different assay [...] Laterality Blood (Blood, 09/30/2021 7:38 AM 10/01/19 3:02 Venous) CDT PM CDT Warren Connor M.D., M.P.H. LAB BLOOD ADD-ON Performing Organization Address City/[facility]/ZIP [facility] [facility] [place] Phon e Number [facility] [address] [place] [address] [facility] [place] [address] Laboratory Medicine and Pathology [address] [place] [address] Dr. CHAPPELL Vitamin E Level (09/30/2021 7:38 AM CDT) athologist Signature A-Tocopherol, 6.3 5.5 - 17.0 10/01/2021 [facility] Vitamin E mg/L 1:44 PM CDT Comment: ----ADDITIONAL INFORMATION---- This test was developed and its performa nce characteristics determined by [facility] in a manner consistent with CLIA [...] ADD-ON Performing Organization Address City/[facility] Code Phon e Number [facility] [address] [address] [place], [place] [address] [facility] [place] [address] Laboratory Medicine and Pathology [address] [place] [address] Dr. CHAPPELL 25-Hydroxyvitamin D2 and D3 (09/30/2021 7:38 AM CDT) athologist Signature 25-Hydroxy D2 20 ng/mL 09/30/2021 SDS 11:30 PM CDT 25-Hydroxy D3 <2.0 ng/mL 09/30/2021 [facility] 11:30 PM CDT 25-Hydroxy D 20 ng/mL 09/30/2021 [facility] Total 11:30 PM CDT Comment: ----REFERENCE VALUE---- 25-HYDROXY D TOTAL (D2+D3) Optimum level s in the healthy population are 20-50, patients with bone disease may benefit from higher levels within this r vinh. ----ADDITIONAL INFORMATION---- This test was developed and its performa nce characteristics determined by [facility] in a manner consistent with CLIA requirements. This test has not been cleared or approved by the U.S. Meggan d and Drug Administration. Specimen Anatomical Collection Method Collection Time Receive d Time (Source) Location / / Volume Laterality Blood (Blood, 09/30/2021 7:38 AM 10/01/19 22 Venous) CDT 10:21 AM CDT Warren Connor M.D., M.P.H. LAB BLOOD ADD-ON Performing Organization Address [facility] Phon e Number [facility] [address] [place] [phone] [facility] [place] [address] Laboratory Medicine and Pathology [address] [place] [address] Dr. CHAPPELL (ABNORMAL) Vitamin A Level (09/30/2021 7:38 AM CDT) athologist Signature Vitamin A 9.5 (L) 32.5 - 78.0 10/01/2021 [facility] mcg/dL 11:30 AM CDT Comment: In this sample, the retinol (vitamin A) level indicates a severe deficiency. ----ADDITIONAL INFORMATION---- This test was developed and its performa nce characteristics determined by [facility] in a manner consistent with CLIA [...] ADD-ON Performing Organization Address City/[facility] Phon e Number [facility] [address] [place], [place] [address] SUPPORT CENTER [facility] [place] [address] Laboratory Medicine and Pathology [address] [place] [address] Dr. CHAPPELL HLA Class II Typing by Low Resolution, Recipient (09/30/2021 7:38 AM CDT) [facility] Method Time Signature DRB1 - 1 DR4 Not 10/10/2021 DBB8 Equivalent Applicable 10:12 AM CDT DRB1 - 2 DR16 Not 10/10/2021 DBB8 Equivalent Applicable 10:12 AM CDT DRB1 - 1 DRB1*04:01 Not 10/10/2021 DBB8 Molecular Applicable 10:12 AM CDT DRB1 - 2 DRB1*16:02 Not 10/10/2021 DBB8 Molecular Applicable 10:12 AM CDT [id number] - 1 DR53 Not 10/10/2021 DBB8 Equivalent Applicable 10:12 AM CDT [id number] - 2 DR51 Not 10/10/2021 DBB8 Equivalent Applicable 10:12 AM CDT [id number] - 1 DRB4*01:03 Not 10/10/2021 DBB8 Molecular Applicable 10:12 AM CDT EKS085 - 2 DRB5*02:02 Not 10/10/2021 DBB8 Molecular [...] performa nce characteristics determined by [facility] in a manner co nsistent with CLIA requirements. This test has not been norah ared or approved by the U.S. Food and Drug Administration. CLIA: [id number] ??CLIA Automobile Assembler: THAIS CAR MD,PhD Specimen Anatomical Collection Method Collection Time Receive d Time (Source) Location / / Volume Laterality Blood (Blood, 09/30/2021 7:38 AM 10/01/19 8:12 Venous) CDT AM CDT Warren Connor M.D., M.P.H. LAB HLA ORDERABLES Performing Organization Address City/State/[facility] Code Phon e Number [facility] - [address] [place], [place] [address] [place] [address] [place] [address] [facility] [address] [facility] HLA Class I Typing by Low Resolution, Recipient (09/30/2021 7:38 AM CDT) [facility] gist Method Time Signature A - [...] performa nce characteristics determined by [facility] in a manner co nsistent with CLIA requirements. This test has not been norah ared or approved by the U.S. Food and Drug Administration. CLIA: [id number] ??CLIA Automobile Assembler: THAIS CAR MD,PhD Specimen Anatomical Collection Method Collection Time Receive d Time (Source) Location / / Volume Laterality Blood (Blood, 09/30/2021 7:38 AM 10/01/19 22 8:12 Venous) CDT AM CDT Warren Connor M.D., M.P.H. LAB HLA ORDERABLES Performing Organization Address City/[facility] Code Phon e Number [facility] - [address] [place], [place] [address] [place] [address] [place] [address] Folate (09/30/2021 7:38 AM CDT) P athologist Signature Folate, S >20.0 >=4.0 mcg/L 09/30/2021 9:31 DTL AM CDT Specimen Anatomical Collection Method Collection Time Receive d Time (Source) Location / / Volume Laterality Blood (Blood, 09/30/2021 7:38 AM 10/01/19 22 8:07 Venous) CDT AM CDT Warren Connor M.D., M.P.H. LAB BLOOD ADD-ON Performing Organization Address City/[facility]/ZIP [facility] Phon e Number [facility] - [address] [place], [place] [address] [address] [place] [address] (ABNORMAL) Parathyroid Hormone (PTH) (09/30/2021 7:38 [...] M.P.H. LAB BLOOD ADD-ON Performing Organization Address City/[facility] Phon e Number [address] T4 (Thyroxine), Free (09/30/2021 7:38 AM CDT) athologist Signature T4 (Thyroxine), 1.3 0.9 - 1.7 09/30/2021 DT Free, S ng/dL 10:47 AM CDT Specimen Anatomical Collection Method Collection Time Receive d Time (Source) Location / / Volume Laterality Blood (Blood, 09/30/2021 7:38 AM 10/01/19 22 8:07 Venous) CDT AM CDT Warren Connor M.D., M.P.H. LAB BLOOD ADD-ON Performing Organization Address City/[facility] Code Phon e Number [facility] - [address] [place] [address] (ABNORMAL) S-TSH (Thyroid-Stimulating Hormone - Sensitive) (09/30/2021 7:38 AM CDT) P athologist Signature TSH, Sensitive 5.9 (H) 0.3 - 4.2 09/30/2021 DTL mIU/L 9:15 AM CDT Specimen Anatomical Collection Method Collection Time Receive d Time (Source) Location / / Volume Laterality Blood (Blood, 09/30/2021 7:38 AM 10/01/19 22 8:07 Venous) CDT AM CDT Warren Connor M.D., M.P.H. LAB BLOOD ADD-ON Performing Organization Address City/State/ZIP Code Phon e Number [facility] - [address] [place], [place] [address] [address] [place] [address] [facility] [address] [facility] Type and Screen (with reflex Antibody ID) (09/30/2021 7:38 AM CDT) Patholo gist Method Time Signature ABORh B Pos Not 09/30/2021 ETRM applicable 11:13 AM CDT Antibody Negative Negative 09/30/2021 ETR[facility] Screen 11:21 AM CDT Type & Screen 10/03/2021 09/30/2021 ETRM Expiration 23:59 11:13 AM CDT Testing [place] DEFAULT 09/30/2021 ETRM Location 10:17 AM CDT Specimen Anatomical Collection Method Collection Time Receive d Time (Source) Location / / Volume Laterality Blood (Blood, 09/30/2021 7:38 AM 10/01/19 22 Venous) CDT 10:17 AM CDT Warren Connor M.D., M.P.H. LAB BLOOD BANK TEST OR DERABLES Performing Organization Address City/[facility] Code Phon e Number [facility] - [address] [place], [place] [address] [place] [address] [facility] [address] [facility] QuantiFERON-Tb Gold Plus, Blood (09/30/2021 7:38 AM CDT) P athologist Signature QuantiFERON-TB Negative Negative 10/01/2021 SDSC [...] Result 0.00 IU/mL 10/01/2021 10:03 AM CDT [facility] Specimen Anatomical Collection Method Collection Time Receive d Time (Source) Location / / Volume Laterality Blood (Blood, 09/30/2021 7:38 AM 10/01/19 9:36 Venous) CDT AM CDT Narrative [facility] SUPPORT JARED R - 10/01/2021 10:03 AM CDT Specimen Information: Specimen ID: [id number] Specimen Type: Blood Specimen Collection Start Date: 10/01/19 ??7:38 AM Specimen Received Date: 09/30/2021 ??9:3 6 AM Specimen ID: [id number] Specimen Type: Blood Specimen Collection Start Date: 10/01/19 ??7:38 AM Specimen Received Date: 09/30/2021 ??9:3 6 AM Specimen ID: [id number] Specimen Type: Blood Specimen Collection Start Date: 10/01/19 ??7:38 AM Specimen Received Date: 09/30/2021 ??9:3 6 AM Specimen ID: [id number] Specimen Type: Blood Specimen Collection Start Date: 10/01/19 ??7:38 AM Specimen Received Date: 09/30/2021 ??9:3 6 AM Warren Connor M.D., M.P.H. LAB MICROBIOLOGY - BLO OD ORDERABLES Performing Organization Address City/State/ZIP Code Phon e Number [facility] [address] [place], [place] [address] [place], [place] [address] [address] Laboratory Medicine and Pathology [address] [place] [address] Dr. CHAPPELL HCV RNA Detect / Quant, Serum (09/30/2021 7:38 AM CDT) Patholo gist Method Time Signature HCV RNA Undetected Undetected 10/01/2021 [facility] Detect/Quant, IU/mL 12:31 PM S CDT Comment: Result in log IU/mL is Undetected. ----ADDITIONAL INFORMATION---- The quantification range of this assay i s 15 to 100,000,000 IU/mL (1.18 log to 8.00 log IU/mL). Testing was performe d using the john HCV test ([employer] with the john Drizly0 System. Specimen Anatomical Collection Method Collection Time Receive d Time (Source) Location / / Volume Laterality Blood (Blood, 09/30/2021 7:38 AM 10/01/19 Venous) CDT 10:15 AM CDT Warren Connor M.D., M.P.H. LAB MICROBIOLOGY - BLO OD ORDERABLES Performing Organization Address City/[facility] Phon e Number [facility] [address] [place] [address] [address] [facility] [place] [address] Laboratory Medicine and Pathology [address] [place] [address] Dr. CHAPPELL HCV Ab Scrn w/Reflex to HCV PCR, Serum (09/30/2021 7:38 AM CDT) athologist Signature HCV Ab Screen, Negative Negative 09/30/2021 [facility] S 2:11 PM CDT Comment: Ppnfhr-er-vpmygu ratio is <1.00 . Specimen Anatomical Collection Method Collection Time Receive d Time (Source) Location / / Volume Laterality Blood (Blood, 09/30/2021 7:38 AM 10/01/19 Venous) CDT 10:15 AM CDT Warren Connor M.D., M.P.H. LAB MICROBIOLOGY - BLO OD ORDERABLES Performing Organization Address City/[facility] Phon e Number [facility] [address] [place] [address] [address] [facility] [place] [address] Laboratory Medicine and Pathology [address] [place] [address] Dr. CHAPPELL HBc Total Ab Scrn, S (09/30/2021 7:38 AM CDT) athologist Signature HBc Total Ab Negative Negative 09/30/2021 [facility] Scrn, S 2:11 PM CDT Specimen Anatomical Collection Method Collection Time Receive d Time (Source) Location / / Volume Laterality Blood (Blood, 09/30/2021 7:38 AM 10/01/19 22 Venous) CDT 10:15 AM CDT Warren Connor M.D., M.P.H. LAB MICROBIOLOGY - BLO OD ORDERABLES Performing Organization Address City/[facility] Phon e Number [facility] [address] [place] [address] [facility] [place] [address] Laboratory Medicine and Pathology [address] [place] [address] Dr. CHAPPELL HBs Antibody Scrn, S (09/30/2021 7:38 AM CDT) athologist Signature HBs Antibody Positive 09/30/2021 [facility] Scrn, S 2:20 PM CDT Comment: Patient is considered to be immune to in fection with HBV. ----REFERENCE VALUE---- Unvaccinated: Negative Vaccinated: Positive HBs Antibody, Quantitative, S 15.2 mIU/mL 09/30/2021 2:20 PM CDT [facility] Comment: ----REFERENCE VALUE---- Unvaccinated: <5.0 Vaccinated: >=12.0 Specimen Anatomical Collection Method Collection Time Receive d Time (Source) Location / / Volume Laterality Blood (Blood, 09/30/2021 7:38 AM 10/01/19 22 Venous) CDT 10:15 AM CDT Warren Connor M.D., M.P.H. LAB MICROBIOLOGY - BLO OD ORDERABLES Performing Organization Address City/[facility]/ZIP Code Phon e Number [facility] [address] [place], [place] [address] SUPPORT CENTER [facility] [place] [address] Laboratory Medicine and Pathology [address] [place] [address] Dr. CHAPPELL Hepatitis A IgM Ab, Serum (09/30/2021 7:38 AM CDT) athologist Signature Hepatitis A Negative Negative 09/30/2021 [facility] IgM Ab, S 1:17 PM CDT [...] - BLO OD ORDERABLES Performing Organization Address [facility] Phon e Number [facility] [address] [place], [place] [address] [facility] [place] [address] Laboratory Medicine and Pathology [address] [place] [address] Dr. CHAPPELL Hepatitis A IgG Ab, Serum (09/30/2021 7:38 AM CDT) athologist Signature Hepatitis A Negative 09/30/2021 [facility] IgG Ab, S 1:17 PM CDT [...] - BLO OD ORDERABLES Performing Organization Address [facility] Phon e Number [address] [place] [address] [place] [address] Laboratory Medicine and Pathology [address] [place] [address] Dr. CHAPPELL HIV-1/-2 Ag and Ab Screen, Plasma (09/30/2021 7:38 AM CDT) athologist Signature HIV-1/-2 Ag Negative Negative 09/30/2021 [facility] and Ab Screen, 1:16 PM CDT Comment: [...] - BLO OD ORDERABLES Performing Organization Address City/[facility]/ZIP Code Phon e Number [facility] [address] [place], [place] [address] [facility] [place] [address] Laboratory Medicine and Pathology [address] [...] M.P.H. LAB BLOOD ADD-ON Performing Organization Address City/[facility] Phon e Number [facility] - [address] [place], [place] [address] [address] [place] [address] [facility] [address] [facility] Lipid Panel (09/30/2021 7:38 AM CDT) athologist [...] M.P.H. LAB BLOOD ADD-ON Performing Organization Address [facility] Phon e Number [facility] - [address] [place], [place] [address] [place] [address] (ABNORMAL) GGT (Gamma-Glutamyltransferase) (09/30/2021 7:38 AM CDT) [facility] [employer] Method Time Signature Gamma 52 (H) 5 - 36 09/30/2021 DTL Glutamyltransferase U/L 10:47 AM (GGT), S CDT Specimen Anatomical Collection Method Collection Time Receive d Time (Source) Location / / Volume Laterality Blood (Blood, 09/30/2021 7:38 AM 10/01/19 22 8:07 Venous) CDT AM CDT Warren Connor M.D., M.P.H. LAB BLOOD ADD-ON Performing Organization Address City/[facility] Phon e Number [facility] - [address] [place], [place] [address] [place] [address] (ABNORMAL) Hepatic Function Panel (09/30/2021 7:38 AM CDT) [facility] [employer] Method Time Signature Bilirubin, Total, S 12.1 [...] Address City/State/ZIP Code Phon e Number [facility] - [address] [place] [address] [address] [place] [address] [facility] [address] [facility] (ABNORMAL) Basic Metabolic Panel (09/30/2021 7:38 [...] 09/30/2021 DTL Black/ mL/min/BSA 10:29 AM CDT Guyanese Comment: ----ADDITIONAL INFORMATION---- Estimated GFR calculated using [...] Address City/State/ZIP Code Phon e Number [facility] - [address] [place] [address] [address] [place] [address] [facility] [address] [facility] Rubella Antibodies, IgG (09/30/2021 7:37 AM CDT) P athologist Signature Rubella Ab, Positive 09/30/2021 [facility] IgG, S 11:25 AM CDT Comment: Results suggest response to immunization or prior exposure to the virus. ----REFERENCE VALUE---- Vaccinated: Positive (>=1.0 AI) Unvaccinated: Negative (<=0.7 AI) Rubella IgG Antibody Index 5.9 09/30/2021 11 :25 AM CDT [facility] Specimen Anatomical Collection Method Collection Time Receive d Time (Source) Location / / Volume Laterality Blood (Blood, 09/30/2021 7:37 AM 10/01/19 Venous) CDT 10:37 AM CDT Warren Connor M.D., M.P.H. LAB MICROBIOLOGY - BLO OD ORDERABLES Performing Organization Address [facility] Phon e Number [place] [address] [place] [phone] SU[address] [facility] [place] [address] Laboratory Medicine and Pathology [address] [place] [address] Dr. CHAPPELL Measles (Rubeola) Ab, IgG (09/30/2021 7:37 AM CDT) athologist Signature Measles Positive 09/30/2021 [facility] (Rubeola) Ab, 11:25 AM CDT IgG, S Comment: Results suggest response to immunization or prior exposure to the virus. ----REFERENCE VALUE---- Vaccinated: Positive (>=1.1 AI) Unvaccinated: Negative (<=0.8 AI) Measles IgG Antibody Index >8.0 09/30/2021 11 :25 AM CDT [facility] Specimen Anatomical Collection Method Collection Time Receive d Time (Source) Location / / Volume Laterality Blood (Blood, 09/30/2021 7:37 AM 10/01/19 22 Venous) CDT 10:37 AM CDT Warren Connor M.D., M.P.H. LAB MICROBIOLOGY - BLO OD ORDERABLES Performing Organization Address [facility] Phon e Number [address] [place] [address] 05 [facility] [place] [address] Laboratory Medicine and Pathology [address] [place] [address] Dr. CHAPPELL (ABNORMAL) Zinc (09/30/2021 7:37 AM CDT) athologist Signature Zinc, S 0.39 (L) 0.66 - 1.10 09/30/2021 [facility] mcg/mL 12:56 PM CDT Comment: ----ADDITIONAL INFORMATION---- This test was developed and its performa nce characteristics determined by [facility] in a manner consistent with CLIA requirements. This test has not been cleared or approved by the U.S. Meggan d and Drug Administration. Specimen Anatomical Collection Method Collection Time Receive d Time (Source) Location / / Volume Laterality Blood (Blood, 09/30/2021 7:37 AM 10/01/19 22 Venous) CDT 10:12 AM CDT Warren Connor M.D., M.P.H. LAB BLOOD NON ADD-ON Performing Organization Address [facility] Phon e Number [facility] [address] [address] [place] [address] [place] [address] Laboratory Medicine and Pathology [address] [place] [address] Dr. CHAPPELL Toxoplasma gondii Antibody, IgG (09/30/2021 7:37 AM CDT) Analysis Performed At Patho logist Time Signature Toxoplasma Ab, Negative Negative 09/30/2021 [facility] IgG, S 11:25 AM CDT Toxoplasma IgG <3 IU/mL 09/30/2021 [facility] Value 11:25 AM CDT Comment: ----REFERENCE VALUE---- <=9 IU/mL (Negative) 10-11 IU/mL (Equivocal) >=12 IU/mL (Positive) Specimen Anatomical Collection Method Collection Time Receive d Time (Source) Location / / Volume Laterality Blood (Blood, 09/30/2021 7:37 AM 10/01/19 Venous) CDT 10:37 AM CDT Warren Connor M.D., M.P.H. LAB MICROBIOLOGY - BLO OD ORDERABLES Performing Organization Address [facility] Phon e Number [facility] [address] [place] [address] [place] [address] Laboratory Medicine and Pathology [address] [place] [address] Dr. CHAPPELL Mumps Ab, IgG (09/30/2021 7:37 AM CDT) P athologist Signature Mumps Ab, IgG, Positive 09/30/2021 [facility] S 11:25 AM CDT Comment: Results suggest response to immunization or prior exposure to the virus. ----REFERENCE VALUE---- Vaccinated: Positive (>=1.1 AI) Unvaccinated: Negative (<=0.8 AI) Mumps IgG Antibody Index 6.1 09/30/2021 11:2 5 AM CDT [facility] Specimen Anatomical Collection Method Collection Time Receive d Time (Source) Location / / Volume Laterality Blood (Blood, 09/30/2021 7:37 AM 10/01/19 Venous) CDT 10:37 AM CDT Warren Connor M.D., M.P.H. LAB MICROBIOLOGY - BLO OD ORDERABLES Performing Organization Address [facility] Phon e Number [facility] [address] [place] [address] [facility] [place] [address] Laboratory Medicine and Pathology [address] [place] [address] Dr. CHAPPELL Syphilis IgG w/ Reflex, EIA, S (09/30/2021 7:37 AM CDT) [facility] Signature Syphilis IgG Nonreactive Nonreactive 10/01/2021 [facility] w/ Reflex, 3:00 PM CDT EIA, S Comment: No serologic evidence of infection with T. pallidum (syphilis). ??Repeat testing may be cons idered in patients with suspected acute or primary syphilis in 2-4 weeks. For additional information on interpreta tion of the syphilis reverse algorithm and resul ts, see: [email or web address] Specimen Anatomical Collection Method Collection Time Receive d Time (Source) Location / / Volume Laterality Blood (Blood, 09/30/2021 7:37 AM 10/01/19 22 Venous) CDT 10:12 AM CDT Warren Connor M.D., M.P.H. LAB MICROBIOLOGY - BLO OD ORDERABLES Performing Organization Address [facility] Phon e Number [place] [address] [place], [place] [address] [facility] [place] [address] Laboratory Medicine and Pathology [address] [place] [address] Dr. CHAPPELL EBV Ab Profile (09/30/2021 7:37 AM CDT) [facility] Method Time Signature EBV VCA IgM Ab, S Negative Negative 09/30/2021 SDS 11:25 AM CDT EBV VCA IgG Ab, S Positive Negative 09/30/2021 [facility] 11:25 AM CDT EBNA Ab, S Positive Negative 09/30/2021 [facility] 11:25 AM CDT Interpretation SEE COMMENT 09/30/2021 [facility] 11:25 AM CDT Comment: Results suggest [...] - BLO OD ORDERABLES Performing Organization Address [facility] Phon e Number [address] [place] [place] [address] Laboratory Medicine and Pathology [address] [place] [address] Dr. CHAPPELL Varicella-Zoster Ab, IgM and IgG (09/30/2021 7:37 AM CDT) athologist Signature Varicella-Zost Positive 09/30/2021 [facility] er Ab, IgG, S 11:25 AM CDT Comment: Results suggest response to immunization or prior exposure to the virus. ----REFERENCE VALUE---- Vaccinated: Positive (>=1.1 AI) Unvaccinated: Negative (<=0.8 AI) Varicella IgG Antibody Index 3.9 09/30/2021 11:25 AM CDT [facility] Varicella-Zoster Ab, IgM, S Negative Negative 10/01/2021 2 :23 PM CDT [facility] Specimen Anatomical Collection Method Collection Time Receive d Time (Source) Location / / Volume Laterality Blood (Blood, 09/30/2021 7:37 AM 10/01/19 22 Venous) CDT 10:37 AM CDT Warren Connor M.D., M.P.H. LAB MICROBIOLOGY - BLO OD ORDERABLES Performing Organization Address City/[facility] Phon e Number [address] TA Garber [place] [address] [facility] [place] [address] Laboratory Medicine and Pathology [address] [place] [address] Dr. CHAPPELL HSV Types 1 and 2 [...] - BLO OD ORDERABLES Performing Organization Address City/[facility] Phon e Number [facility] [address] [place] [address] [facility] [place] [address] Laboratory Medicine and Pathology [address] [place] [address] Dr. CHAPPELL Cytomegalovirus Ab, IgM and IgG (09/30/2021 7:37 AM CDT) [facility] Method Time Signature Cytomegalovirus Ab, Negative [...] - BLO OD ORDERABLES Performing Organization Address [facility] Phon e Number [facility] [address] [place] [address] [place] [address] Laboratory Medicine and Pathology [address] [place] [address] Dr. CHAPPELL (ABNORMAL) Prothrombin Time (PT) (09/30/2021 7:37 AM CDT) [facility] Method Time Signature Prothrombin 28.8 (H) [...] Address City/State/ZIP Code Phon e Number [facility] - [address] [place], [place] [address] [place] [address] [facility] [address] documented in this encounter [...] (HCC) documented in this encounter Care Teams Miner Pick Relationship Specialty Start Date End Date Elsewhere, Pcp PCP - General Family Medicine 03/10/20 11/30/21 [facility] [place] [facility] 08/25/21 Ervin Schroeder MD Referring Provider Family Medicine 03/24/211979 [address] [place] [address] documented as of this encounter
--- OUTSIDE RECORDS SUMMARY | 2022-02-10 09:38 | XMS_ITS | Encounter Summary ---
:1990 Author Organization [facility] Address [address] [place] [address] Care Team Providers Name Role Phone Elsewhere, Pcp Primary Care Provider Unavailable Reason for Visit Reason Comments Medication Question Encounter Details Date Type Department Care Team Description 08/31/2021 Nurse Triage Department of [facility] [place]abil[place] Dum[place] Question Medicine, [facility], in [address] [place] [address] [place] [address] [phone] Social History Tobacco Use Types Packs/Day Years [...] you attend nondenominational or Patient refused 2021 evangelical services? 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 ALTERNATE DISPOSITION - CALL DOCTOR WITHIN 24 HOURS: * The patient's healthcare provider (doctor, ARMORED CAR DRIVER, or PA) may be able to [...] Transplant Matthew Jerome M .B.B.S., M.D. 10[address] [place] [address] 2 Rain Reyes R.N. [address] [place] [phone] [facility]medicine [facility] 2 Brigid noyola M.D. [address] [place] [phone] Office Visit [facility] Internal [facility], 2 Medicine Vernell Perez [address] [place] [phone] Lab Laboratory Medicine Karin, Olinda Gannon M.D., Ph.D. [address] [place] [phone] Lab Laboratory Medicine Olinda Frazier M.D., Ph.D. [address] [place] [phone] Office Visit Transplant Olinda Frazier M.D., Ph.D. [address] [place] [address] [phone] Appointment Radiology LuisNew abdular 2 YTyrell M.D. [address] [place] [phone] Appointment Gastroenterology and Adrianne, 2 Hepatology Yue Burciaga M.D. [address] [place] [address] Office Visit Gastroenterology and [place] 2 Hepatology Tyrell Rodriguez M.D. [address] [place] [phone] Appointment Radiology Matthew Jerome 2 Tyrell Rodriguez M.D. [address] [place] [phone] Hospital Gastroenterology and [place] Matthew Cirrhos is Alcoholic (HCC) 2 Encounter Hepatology Tyrell Rodriguez M.D. [address] [place] [phone] Anesthesia Event Gastroenterology and Rl, 2 Hepatology Ervin Burgos M.D. 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
--- OUTSIDE RECORDS SUMMARY | 2022-02-10 09:38 | XMS_ITS | Encounter Summary ---
:1990 Author Organization [facility] Address [address] [place] [address] Care Team Providers Name Role Phone Elsewhere, Pcp Primary Care Provider Unavailable Encounter Details Date Type Department Care Team Description 08/29/2021 Lab Department of [facility] [place], GLOBAL CHIEF CREATIVE OFFICER, C.N.P., [facility] Laboratory [facility].S.N. Examination (COVID-19) 1025 [facility] 1025 [place] [address] [place], [place] [phone] (Wo rk) Social History Tobacco Use [...] How often do you attend congregational or Patient refused 2021 zoroastrianism services? 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 For questions, contact the [place] Covid Care Team ([facility]): Pager: [phone] In basket: P [facility] COVID-19 POSITIVE Covid Care e-consult NOTE: At the time of testing, patients are instructed to obtain the result by calling the Televox result line or by checking their online services account. documented in this encounter Plan of Treatment Upcoming Encounters Date Type Specialty Care Team Description Virtual Visit Transplant Matthew Jerome M .B.B.S., Lilian [address] [place] [phone] 2 Rain Reyes R.N. [address] [place] [phone] Telemedicine Transplant LinaFederico 2 Brigid noyola M.D. [address] [place] [phone] Office Visit [facility] [place], 2 Medicine Carlotta PerezC. [address] [place] [phone] Lab Laboratory Medicine Karin, 2 Adeline Gannon M.D., Ph.D. [address] [place] [phone] Lab Laboratory Medicine Karin, 2 Adeline Gannon M.D., Ph.D. [address] [place] [phone] Office Visit Transplant Karin, 2 Adeline Gannon M.D., Ph.D. [address] [place] [phone] Appointment Radiology Matthew Jerome 2, M.B.B.S., Lilian [address] [place] [phone] Appointment Gastroenterology and Adrianne, 2 Hepatology Yue Burciaga M.D. [address] [place] [phone] Office Visit Gastroenterology and Matthew Jerome 2 Hepatology Joshua RodriguezB.BSumaSLilian Moise [address] [place] [phone] Appointment Radiology Matthew Jerome 2 Joshua RodriguezB.BSumaSLilian Moise [address] [place] [phone] Hospital Gastroenterology and Matthew Jerome Cirrhos is Alcoholic (HCC) 2 Encounter Hepatology Elizabeth Rodriguez.B.B.SLilian Moise [address] [place] [phone] Anesthesia Event Gastroenterology and Rl, 2 Hepatology Ervin Burgos M.D. [address] [place] [phone] Surgery Gastroenterology and Matthew Jerome ESOPHAG OGASTRODUODENOSCOPY 2 Hepatology Elizabeth Rodriguez.B.B.SLilian Moise [address] [place] [phone] Scheduled Procedures Name Priority Associated Diagnoses Date/Time ESOPHAGOGASTRODUODENOSCOPY Cirrhosis Alc oholic (HCC) 03/20/2022 8:45 AM MANUFACTURING GROUP LEADER Hypertension Portal (HCC) documented as of this encounter Procedures Procedure Name Priority Date/Time Associated Diagnosis Comme nts SARS CORONAVIRUS-2 Routine 08/29/2021 4:14 PM Encounter For Re sults for this RNA, V CDT Preprocedural procedure are in Laboratory Examination the r esults (COVID-19) section. documented in this encounter Results (ABNORMAL) SARS Coronavirus-2 RNA, V Asymptomatic (08/29/2021 4:14 PM CDT) [facility] Method Time Signature SARS-CoV-2 Swab, 08/29/2021 MKTO Specimen Nasopharynx 11:28 PM Source CDT SARS CoV-2 Detected (A) Undetected 08/29/2021 MKTO RNA, TMA 11:28 PM CDT Comment: SARS-CoV-2 RNA present. ----ADDITIONAL INFORMATION---- This molecular amplification test was pe rformed using the Aptima SARS-CoV-2 assay ([employer] on the adRises tem under emergency use authorization (EUA) by the U.S. Food and Drug Administ ration. Fact sheets for this EUA assay can be fo und at the following links: For Healthcare Providers: https://www.[employer] a.gov/media/338464/download For Patients: https://www.fda.gov/media/ 075239/download Specimen Anatomical Collection Method Collection Time Receive d Time (Source) Location / / Volume Laterality Varies 08/29/2021 4:14 PM 5:17 (Nasopharynx) CDT PM CDT Lowell Newsome APRNNLala., M.S.N. LAB MICROBIOLOGY - GENERAL ORDERABLES Performing Organization Address City/State/ZIP Code Phon e Number [facility]- [address] [place] [id number] [place] [address] [place] [address] [address] documented in this encounter Visit Diagnoses Diagnosis Encounter For Preprocedural Laboratory E xamination (COVID-19) Cirrhosis Alcoholic (HCC) Cirrhosis Alcoholic (HCC) Hypertension Portal (HCC) documented in this encounter Additional Health Concerns Infection Onset Date Last Indicated Resolved Time COVID19 Pending 08/29/2021 08/29/2021 08/29/2021 11:29 PM CDT documented as of this encounter Care Teams Screen Tender Helper Relationship Specialty Start Date End Date Elsewhere, Pcp PCP - General Family Medicine 03/10/20 11/30/21 [facility] [place] [facility] 08/25/21 Ervin Schroeder MD Referring Provider Family Medicine 03/24/[address] [place], [place] [phone] documented as of this encounter
--- OUTSIDE RECORDS SUMMARY | 2022-02-10 09:38 | XMS_ITS | Encounter Summary ---
:1990 Author Organization [facility] Address [address] [place] [address] Care Team Providers Name Role Phone Elsewhere, Pcp Primary Care Provider Unavailable Encounter Details Date Type Department Care Team Description 08/26/2021 Clinical Communication Department of Felicita Spicer Gastroenterology in [facility] [place], [place] [phone] [place] [address] ([facility]) [place] [phone] Social History Tobacco Use Types Packs/Day [...] you attend congregational or Patient refused 2021 worship services? 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 Telephone Encounter - Felicita Spicer L.FrancesNSuma - 08/27/2021 1:24 PM CDT Molecular Modeler called patient and left a detailed message [...] out to schedule the INR at a [facility] lab or she can stopin tomorrow at any [facility] lab to have this drawn. Provided direct [...] CDT Patient in process of discharge from [facility] (see note below). She did receive vitamin [...] and request this be sent to the [facility] in [place]. Upon chart review of past documentation the following was noted by Kerry Naranjo. I have ordered Vitamin K 5 mg X 7 days, to take orally. Then follow up by repeat PT/INR??on the 8th day. Please call pt and ask to get the lab at [facility] in [place]; this allows access to results. Past attempts [...] the patient is currently in patient at [facility] and likely would not be able to start the Rx tonight anyway. Please advise how patient should take vitamin K as she is scheduled for EGD on 09/01/21. A new Rx would need to be sent to the [facility] in [place] as the mortgage underwriter checked with the pharmacy and the they do not have the vitamin K Rx on file. documented in this encounter Plan of Treatment Upcoming Encounters Date Type Specialty Care Team Description Virtual Visit Transplant Matthew Jerome M .B.B.S., MJules [address] [place] [phone] 2 Rain Reyes R.N. [address] [place] [phone] Telemedicine Transplant LinaChris 2 Brigid noyola M.D. [address] [place] [phone] Office Visit [facility] Internal [facility], 2 Medicine Vernell Perez [address] [facility] [place] [address] Lab Laboratory Medicine Karin, Olidna Gannon M.D., Ph.D. [address] [place] [phone] Lab Laboratory Medicine Karin, 2 Adeline Gannon M.D., Ph.D. [address] [place] [phone] Office Visit Transplant Karin, Olinda Gannon M.D., Ph.D. [address] [place] [phone] Appointment Radiology Matthew Jerome 2 Y M.B.B.SSuma, MJules [address] [place] [phone] Appointment Gastroenterology and Adrianne, 2 Hepatology Yue Burciaga M.D. [address] [place] [phone] Office Visit Gastroenterology and Matthew Jerome 2 Hepatology Elizabeth Rodriguez.B.B.SSuma, MJules [address] [place] [phone] Appointment Radiology Matthew Jerome 2 Y M.B.B.SSuma, Lilian [address] [place] [phone] Hospital Gastroenterology and [facility] Cirrhos is Alcoholic (HCC) 2 Encounter Hepatology Tyrell Rodriguez M.D. [address] [place] [phone] Anesthesia Event Gastroenterology and Rl, 2 Hepatology Ervin Burgos M.D. [address] [place] [phone] Surgery Gastroenterology and [facility] ESOPHAG OGASTRODUODENOSCOPY 2 Hepatology Tyrell Rodriguez M.D. [address] [place] [phone] Scheduled Procedures Name Priority Associated Diagnoses Date/Time ESOPHAGOGASTRODUODENOSCOPY Cirrhosis Alc oholic (HCC) 03/20/2022 8:45 AM INTERNATIONAL ACCOUNT EXECUTIVE Hypertension Portal (HCC) documented as of this encounter Visit Diagnoses Not on filedocumented in this encounter Additional Health Concerns Infection Onset Date Last Indicated Resolved Time COVID19 Pending 08/29/2021 08/29/2021 08/29/2021 11:29 PM CDT COVID19 08/29/2021 08/29/2021 09/18/2021 8:31 AM CDT documented as of this encounter Care Teams Furnace Builder Relationship Specialty Start Date End Date Elsewhere, Pcp PCP - General Family Medicine 03/10/20 11/30/21 [facility] [place] lab 08/25/21 Ervin Schroeder MD Referring Provider Family Medicine 03/24/[address] [place] [address] documented as of this encounter
--- OUTSIDE RECORDS SUMMARY | 2022-02-10 09:38 | XMS_ITS | Encounter Summary ---
:1990 Author Organization [facility] Address [address] [place] [address] Care Team Providers Name Role Phone Elsewhere, Pcp Primary Care Provider Unavailable Encounter Details Date Type Department Care Team Description 08/31/2021 Nurse Triage Department of Family Naila Walters R.N. Medicine, [facility], in [address] [place], [place] [address] [place] [phone] [place] [address] [phone] Social History Tobacco Use Types Packs/Day Years [...] How often do you attend mosque or Patient refused 2021 congregation services? Do you belong to any clubs or No 02/10/2022 organizations such as mosque groups, unions, fraternal [...] or the highest technical, or vocational p [employer] degree you have received? 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 - 08/31/2021 10:46 AM CDT Patient reports receiving a text message from [place] [facility] regarding her recent positive Covid test. The text provided a link which asked for a code. Patient is seeking more information regarding code. Unable to answer question at this time. Patient denies any worsening symptoms for triage at this time. Patient will check her email for more information from the [place] Department of [facility]. documented in this encounter Plan of Treatment Upcoming Encounters Date Type Specialty Care Team Description Virtual Visit Transplant Matthew Jerome M .B.B.S., M.Slick. [address] [place] [phone] 2 Rain Reyes R.N. [address] [place] [address] Telemedicine Transplant LinaFederico 2 Brigid noyola M.D. [address] [place] [phone] Office Visit [facility] Internal [place], 2 Medicine Vernell Perez [address] [place] [phone] Lab Laboratory Medicine Karin, 2 Adeline Gannon M.D., Ph.D. [address] [place] [phone] Lab Laboratory Medicine Karin, 2 Adeline Gannon M.D., Ph.D. [address] [place] [phone] Office Visit Transplant Karin, 2 Adeline Gannon M.D., Ph.D. [address] [place] [phone] Appointment Radiology Matthew Jerome 2, M.B.B.Lilian [place] [address] [place] [phone] Appointment Gastroenterology and Adrianne, 2 Hepatology Yue Burciaga M.D. [address] [place] [phone] Office Visit Gastroenterology and Matthew Jerome 2 Hepatology Joshua RodriguezB.B.SLilian Moise [address] [place] [phone] Appointment Radiology Queenie Matthew 2 YTyrell M.D. [address] [place] [phone] Hospital Gastroenterology and Matthew Jerome Cirrhos is Alcoholic (HCC) 2 Encounter Hepatology Tyrell Rodriguez M.D. [address] [place] [phone] Anesthesia Event Gastroenterology and Rl, 2 Hepatology Ervin Burgos M.D. [address] [place] [phone] Surgery Gastroenterology and [facility] ESOPHAG OGASTRODUODENOSCOPY 2 Hepatology Tyrell Rodriguez M.D. [address] [place] [phone] Scheduled Procedures Name Priority Associated Diagnoses Date/Time ESOPHAGOGASTRODUODENOSCOPY Cirrhosis Alc oholic (HCC) 03/20/2022 8:45 AM RACECOURSE BARRIER ATTENDANT Hypertension Portal (HCC) documented as of this encounter Visit Diagnoses Not on filedocumented in this encounter Additional Health Concerns Infection Onset Date Last Indicated Resolved Time COVID19 08/29/2021 08/29/2021 09/18/2021 8:31 AM CDT documented as of this encounter Care Teams Wooden Boat Builder Relationship Specialty Start Date End Date Elsewhere, Pcp PCP - General Family Medicine 03/10/20 11/30/21 [facility] [place] [facility] 08/25/21 Ervin Schroeder MD Referring Provider Family Medicine 03/24/[address] [place] [address] documented as of this encounter
--- OUTSIDE RECORDS SUMMARY | 2022-02-10 09:39 | XMS_ITS | Encounter Summary ---
:1990 Author Organization [facility] Address [address] [place] [address] Care Team Providers Name Role Phone Elsewhere, Pcp Primary Care Provider Unavailable Encounter Details Date Type Department Care Team Description 08/01/2021 Clinical Communication [facility] Lester Garber La uren M, [place] M.D. [address] [place] [address] [address] [place] [phone] Social History Tobacco Use Types Packs/Day Years [...] How often do you attend lutheran or Patient refused 2021 sikhism services? 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 She has been wrapping [...] Transplant Matthew Jerome M .B.B.S., Lilian [address] [place] [address] 2 Rain Reyes, RGabby [address] [place] [phone] Telemedicine Transplant LinaDemarcus 2 Brigid noyola M.D. [address] [place] [phone] Office Visit [facility] Internal [facility], 2 Solitario Perez P.A.-C. [address] [place] [address] Lab Laboratory Medicine Olinda Frazier M.D., Ph.D. [address] [place] [phone] Lab Laboratory Medicine Olinda Frazier M.D., Ph.D. [address] [place] [phone] Office Visit Transplant Olinda Frazier M.D., Ph.D. [address] [place] [phone] Appointment Radiology Matthew Jerome 2 Tyrell Rodriguez, Lilian [address] [place] [address] [phone] Appointment Gastroenterology and Adrianne 2 Hepatology Yue Burciaga M.D. [address] [place] [phone] Office Visit Gastroenterology and Matthew Jerome 2 Hepatology Tyrell Rodriguez M.D. [address] [place] [phone] Appointment Radiology Matthew Jerome 2 Tyrell Rodriguez M.D. [address] [place] [phone] [facility] Gastroenterology and Matthew Jerome Cirrhos is Alcoholic (HCC) 2 Encounter Hepatology Tyrell Rodriguez M.D. [address] [place] [phone] Anesthesia Event Gastroenterology and Rl, 2 Hepatology Ervin Burgos M.D. [address] [place] [address] [phone] Surgery Gastroenterology and Matthew Jerome ESOPHAG OGASTRODUODENOSCOPY 2 Hepatology Vik RodriguezBLilian Bedolla [address] [place] [phone] Scheduled Procedures Name Priority Associated Diagnoses Date/Time ESOPHAGOGASTRODUODENOSCOPY Cirrhosis Alc oholic (HCC) 03/20/2022 8:45 AM ASSOCIATE PROFESSOR OF EDUCATION Hypertension Portal (HCC) documented as of this encounter Visit Diagnoses Not on filedocumented in this encounter Care Teams Overnight Caregiver Relationship Specialty Start Date End Date Elsewhere, Pcp PCP - General Family Medicine 03/10/20 11/30/21 Ervin Schroeder MD Referring Provider Family Medicine 03/24/[address] [place] [phone] documented as of this encounter
--- OUTSIDE RECORDS SUMMARY | 2022-02-10 09:39 | XMS_ITS | Encounter Summary ---
:1990 Author Organization [facility] Address [address] [place] [address] Care Team Providers Name Role Phone Elsewhere, Pcp Primary Care Provider Unavailable Encounter Details Date Type Department Care Team Description 08/11/2021 Hospital Encounter Department of Mousa, Matthew Y, Edema Leg; Laboratory Medicine Joshua Santillan. Cirrhosis Alcoholic (HCC) in [address] [phone] [facility] [phone] (Work) [phone] Social History Tobacco Use Types Packs/Day Years [...] you attend mu-ism or Patient refused 2021 mandaen services? 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 - 08/13/2021 10:[address] [facility] Please can you notify the [...] Transplant Matthew Jerome M .B.B.S., M.D. [address] [place] [address] 2 Rain Reyes R.N. [address] [place] [phone] Telemedicine Transplant LinaFederico 2 Brigid noyola M.D. [address] [place] [phone] Office Visit Community Internal Deanovic, 2 Medicine Vernell Perez [address] [place] [address] [place] [phone] Lab Laboratory Medicine Karin, 2 Adeline Gannon M.D., Ph.D. [address] [place] [phone] Lab Laboratory Medicine Karin, 2 Adeline Gannon M.D., Ph.D. [address] [place] [phone] Office Visit Transplant Karin, 2 Adeline Gannon M.D., Ph.D. [address] [place] [phone] Appointment Radiology Matthew Jerome 2 Y, M.B.B.SSuma, MJules [address] [place] [phone] Appointment Gastroenterology and Adrianne, 2 Hepatology Yue Burciaga M.D. [address] [place] [phone] Office Visit Gastroenterology and Matthew Jerome 2 Hepatology Jennifer M.B.B.SLilian Moise [address] [place] [phone] Appointment Radiology Matthew Jerome 2 Y M.B.B.SLilian Moise [address] [place] [phone] Hospital Gastroenterology and [facility] Cirrhos is Alcoholic (HCC) 2 Encounter Hepatology Tyrell Rodriguez M.D. [address] [place] [phone] Anesthesia Event Gastroenterology and Rl, 2 Hepatology Ervin Burgos M.D. [address] [place] [phone] Surgery Gastroenterology and [facility] ESOPHAG OGASTRODUODENOSCOPY 2 Hepatology Tyrell Rodriguez, Lilian [address] [place] [phone] Scheduled Procedures Name Priority Associated Diagnoses Date/Time ESOPHAGOGASTRODUODENOSCOPY Cirrhosis Alc oholic (HCC) 03/20/2022 8:45 AM RADIO COMMUNICATION COORDINATOR Hypertension Portal (HCC) documented as of [...] CDT eGFR-Black/Afri >90 >=60 08/11/2021 [place] can Dutch mL/min/BSA 1:53 PM CDT Comment: ----ADDITIONAL INFORMATION---- [...] Organization Address City/State/ZIP Code Phon e Number [facility] [address] [place] [address] [place] [address] System in [place] [address] [facility] documented in this encounter Visit Diagnoses Diagnosis Edema Leg Cirrhosis Alcoholic (HCC) Cirrhosis Alcoholic (HCC) Cirrhosis Alcoholic (HCC) Hypertension Portal (HCC) documented in this encounter Care Teams Program Manager Slp Relationship Specialty Start Date End Date Elsewhere, Pcp PCP - General Family Medicine 03/10/20 11/30/21 Ervin Schroeder MD Referring Provider Family Medicine 03/24/211979 [address] [place] [address] documented as of this encounter
--- OUTSIDE RECORDS SUMMARY | 2022-02-10 09:39 | XMS_ITS | Encounter Summary ---
:1990 Author Organization [facility] Address [address] [place] [address] Care Team Providers Name Role Phone Elsewhere, Pcp Primary Care Provider Unavailable Reason for Visit Reason Comments Referral - Liver Txp Encounter Details Date Type Department Care Team Description 08/14/2021 Clinical Department of Matthew Jerome Referral - Angelica er Communication Gastroenterology in , M.B.B.S., [place], [place] M.D [address] [facility] [address] [place] [address] [facility] [phone] [place] [phone] Social History Tobacco Use Types Packs/Day Years [...] you attend gnosticist or Patient refused 2021 episcopal services? 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 Jerome wrapping 09/17. After speaking with patient, our hopes are that the remaining testing can be done in [place] the week prior (09/08). Mihaela, I have left the orders in our WQ and they say LTE [place] on them. Feel free to reroute the orders as neccessary! Let [place] [facility] know if you are unable to schedule testing 09/08 week and we can try scheduling the test in [place] instead. Our TTE echoes are going out [...] 6:55 PM CDT ----- Regarding: Liver transplant [id number] Dear team Kindly please submit [id number] for this patient. I had an initial visit with her, and I hope we can complete a liver transplant evaluation on her behalf. I will see her back for a wrap-up visit here in [place]. She will need full workup and consultations, especially Cardiology (abnormal echo 2020) and transplant psychiatry given her psych history. Thanks OM documented in this encounter Plan of Treatment Upcoming Encounters Date Type Specialty Care Team Description Virtual Visit Transplant Matthew Jerome M .B.B.S., M.D. [address] [place] [phone] 2 Rain Reyes R.N. [address] [place] [phone] Telemedicine Transplant Ashtyn 2 Brigid noyola M.D. [address] [place] [phone] Office Visit Community Internal Deanovic, 2 Medicine Vernell Perez [address] [place] [phone] Lab Laboratory Medicine Karin, 2 Adeline Gannon M.D., Ph.D. [address] [place] [phone] Lab Laboratory Medicine Karin, 2 Adeline Gannon M.D., Ph.D. [address] [place] [phone] Office Visit Transplant Karin, 2 Adeline Gannon M.D., Ph.D. [address] [place] [phone] Appointment Radiology Matthew Jerome 2 MSumaB.B.SSuma, MJules [address] [place] [phone] Appointment Gastroenterology and Adrianne, 2 Hepatology Yue Burciaga M.D. [address] [place] [phone] Office Visit Gastroenterology and Matthew Jerome 2 Hepatology Joshua RodriguezB.B.SSuma MJules [address] [place] [phone] Appointment Radiology Luischantell Matthew 2 YTyrell, Lilian [address] [place] [phone] Hospital Gastroenterology and Matthew Jerome Cirrhos is Alcoholic (HCC) 2 Encounter Hepatology Tyrell Rodriguez M.D. [address] [place] [phone] Anesthesia Event Gastroenterology and [facility], 2 Hepatology Ervin Burgos M.D. [address] [place] [phone] Surgery Gastroenterology and Matthew Jerome ESOPHAG OGASTRODUODENOSCOPY 2 Hepatology Tyrell Rodriguez M.D. [address] [place] [phone] Scheduled Procedures Name Priority Associated Diagnoses Date/Time ESOPHAGOGASTRODUODENOSCOPY Cirrhosis Alc oholic (HCC) 03/20/2022 8:45 AM SECURITY INSTALLER Hypertension Portal (HCC) documented as of this encounter Visit Diagnoses Not on filedocumented in this encounter Additional Health Concerns Infection Onset Date Last Indicated Resolved Time COVID19 Pending 08/29/2021 08/29/2021 08/29/2021 11:29 PM CDT COVID19 08/29/2021 08/29/2021 09/18/2021 8:31 AM CDT documented as of this encounter Care Teams Product Blending Supervisor Relationship Specialty Start Date End Date Elsewhere, Pcp PCP - General Family Medicine 03/10/20 11/30/21 [facility] 08/25/21 Ervin Schroeder MD Referring Provider Family Medicine 03/24/[address] [place] [phone] documented as of this encounter
--- OUTSIDE RECORDS SUMMARY | 2022-02-10 09:39 | XMS_ITS | Encounter Summary ---
:1990 Author Organization [facility] Address [address] [place] [address] Care Team Providers Name Role Phone Elsewhere, Pcp Primary Care Provider Unavailable Reason for Referral Outpatient (Routine) - Authorized Specialty Diagnoses / Procedures Referred By Contact Refer red To Contact Emergency Medicine Diagnoses Edema Peripheral Elevated Bilirubin Margy Paul M.D. [address] [phone] Referral ID Status Reason Start Date Expiration Date Visits V isits Requested Authorized [id number] Authorized 08/03/2021 08/03/2022 1 1 Outpatient (Routine) - Authorized Specialty Diagnoses / Procedures Referred By Contact Refer red To Contact Emergency Medicine Diagnoses Edema Peripheral Margy Paul M.D. [address] [phone] Referral ID Status Reason Start Date Expiration Date Visits V isits Requested Authorized [id number] Authorized 08/03/2021 08/03/2022 1 1 Reason for Visit Reason Comments Leg Swelling Pt states she has had bilate ral lower leg swelling for the past week. Encounter Details Date Type Department Care Team Description 08/02/2021 - Emergency [facility] Juliana Stevens D.O. [address] [place] [phone] Edema Peripheral (Primary Dx); 08/03/2021 [facility] Margy Paul M.D. [address] [place] [phone] Hypokalemia; Emergency Department Elevated Bilirubin; [address] [place] [phone] Social History Tobacco Use Types Packs/Day Years [...] How often do you attend yarsanism or Patient refused 2021 yarsani services? Do you belong to any clubs or No 02/10/2022 organizations such as yarsanism groups, unions, fraternal [...] or the highest technical, or vocational p [facility] degree you have received? 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 Pt stated to story writer that her mother was on her way from [facility] pick her up at that time. Pt was still in lobby at 0900. Mother was not enroute-pt had never actually talked to her about a ride (had left a text message). Pt approached by story writer and asked what her plan was as hospital rules prohibit her from sitting in lobby until 1pm as that is when pt wants to go visit her friend on the unit. Pt then stated she didn't think she should have been discharged. Pt then informed by story writer that shehas the ability to check back in and be evaluated by another physician. Pt declined and stated she did not want more blood work or another IV. I just want to visit my friend. Pt again talked to someone on the phone and said Will you come and get me?. She then said her mother was on her way. Escorted to [facility] by security. Shyla Ojeda R.N. 08/03/21 0916 [...] of her legs. No beds here in [place]. Have had a conversation regarding admission vs [...] and Family: Twice a week ??? Attends Taoist Services: Never ??? Active Member of Clubs [...] this time. Unfortunately no beds here in [place] and patient prefers to wait until bed availability could potentially open up tomorrow rather than attempt transfer to [facility]. Transfer of patient's care pending admission to [facility] ED attending Dr. Paul. Final Diagnoses: as of 08/06/21 1123 Edema Peripheral Hypokalemia Elevated Bilirubin Anemia INTERVENTIONS: Medications fentaNYL injection 25 mcg (SUBLIMAZE) (25 mcg intravenous Given 08/02/21 8900) fentaNYL injection 50 mcg (SUBLIMAZE) (50 mcg [...] Ketone Negative Bilirubin Negative pH 7.0 Specific Morrill 1.005 Urobilinogen 0.2 White Blood Cells None [...] care pending admission with bed availability to oncoming ED attending Dr. Paul. DIAGNOSIS: Final diagnoses: [R60.9] Edema Peripheral [E87.6] Hypokalemia [E80.7] Elevated Bilirubin [D64.9] Anemia Juliana Stevens, James. 08/06/21 1123 documented in this encounter Plan of Treatment Upcoming Encounters Date Type Specialty Care Team Description Virtual Visit Transplant Matthew Jerome M .B.B.S., Lilian [address] [place] [phone] 2 Rain Reyes R.N. [address] [place] [address] [phone] Telemedicine Transplant LinaFederico 2 Brigid noyola M.D. [address] [place] [phone] Office Visit Community Internal Melanienovic, 2 Medicine Vernell Perez [address] [facility] [place] [phone] Lab Laboratory Medicine Karin, 2 Adeline Gannon M.D., Ph.D. [address] [place] [phone] Lab Laboratory Medicine Karin, 2 Adeline Gannon M.D., Ph.D. [address] [place] [phone] Office Visit Transplant Karin, 2 Adeline Gannon M.D., Ph.D. [address] [place] [phone] Appointment Radiology Matthew Jerome 2 Y M.B.B.SSuma, MJules [address] [place] [phone] Appointment Gastroenterology and Adrianne, 2 Hepatology Yue Burciaga M.D. [address] [place] [phone] Office Visit Gastroenterology and Matthew Jerome 2 Hepatology Jennifer M.B.B.SSuma, iLlian [address] [place] [phone] Appointment Radiology Matthew Jerome 2 Y M.B.B.SSuma, Lilian [address] [place] [address] [phone] Hospital Gastroenterology and [facility] Cirrhos is Alcoholic (HCC) 2 Encounter Hepatology Tyrell Rodriguez M.D. [address] [place] [phone] Anesthesia Event Gastroenterology and Rl, 2 Hepatology Ervin Burgos M.D. [address] [place] [phone] Surgery Gastroenterology and [facility] ESOPHAG OGASTRODUODENOSCOPY 2 Hepatology Tyrell Rodriguez M.D. 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 LAB BLOOD ADD-ON Performing Organization Address [facility] Phon e Number [facility]- [address] [place] [address] [place] [address] (ABNORMAL) CBC without Differential (08/03/2021 4:27 AM CDT) Patholo gist Method Time Signature [...] BLOOD ADD-ON Performing Organization Address City/[facility] Code Phon e Number [facility]- [address] [place] [address] [place] [address] [address] Urinalysis with Microscopic: Urine, Midstream (08/03/2021 [...] 8.0 08/03/2021 12:13 AM CDT [place] Specific Morrill 1.005 1.001 - 1.035 08/03/2021 12:13 AM [...] Organization Address City/State/ZIP Code Phon e Number [facility]- [address] [place] [address] [place] [address] (ABNORMAL) NT-Pro B-Type Natriuretic Peptide (BNP) [...] supplements. ??If the result does not [facility] clinical observations, repeat testing after patient refrains fr om the use of supplements for at least 12 hours. Specimen Anatomical Collection Method Collection Time Receive d Time (Source) Location / / Volume Laterality Blood (Blood, 08/02/2021 10:44 08/02/2021 Venous) PM CDT 10:50 PM CDT Juliana Stevens D.O. LAB BLOOD ADD-ON Performing Organization Address City/State/ZIP Code Phon e Number [facility]- [address] [place] [address] [place] [address] (ABNORMAL) Prothrombin Time (PT) (08/02/2021 10:44 [...] D.O. LAB BLOOD ADD-ON Performing Organization Address [facility] Phon e Number [facility]- [address] [place] [address] [place] [address] System [address] Lipase (08/02/2021 10:44 PM CDT) P athologist Signature Lipase, P 14 13 - 60 U/L 08/02/2021 MKTO 11:31 PM CDT Specimen Anatomical Collection Method Collection Time Receive d Time (Source) Location / / Volume Laterality Blood (Blood, 08/02/2021 10:44 08/02/2021 Venous) PM CDT 10:50 PM CDT Juliana Stevens D.O. LAB BLOOD ADD-ON Performing Organization Address [facility] Phon e Number [facility]- [address] [place] [address] [place] [address] [address] (ABNORMAL) Hepatic Function Panel (08/02/2021 10:44 [...] D.O. LAB BLOOD ADD-ON Performing Organization Address City/[facility] Phon e Number [facility]- [address] [place] [address] [place] [address] (ABNORMAL) Ammonia (08/02/2021 10:44 PM CDT) P athologist Signature Ammonia, P 84 (H) <=51 08/02/2021 MKTO mcmol/L 11:18 PM CDT Specimen Anatomical Collection Method Collection Time Receive d Time (Source) Location / / Volume Laterality Blood (Blood, 08/02/2021 10:44 08/02/2021 Venous) PM CDT 10:50 PM CDT Juliana Stevens D.O. LAB BLOOD NON ADD-ON Performing Organization Address City/[facility] Phon e Number [address] [address] [place] [address] (ABNORMAL) Basic Metabolic Panel (08/02/2021 10:44 [...] CDT eGFR-Black/Afri >90 >=60 08/02/2021 MK[facility] can [place] mL/min/BSA 11:31 PM CDT Comment: ----ADDITIONAL INFORMATION---- [...] Organization Address City/State/ZIP Code Phon e Number [facility]- [address] [place] [address] [place] [address] [address] hCG (Human Chorionic Gonadotropin), Quantitative, (08/02/2021 10:44 PM CDT) P athologist Signature HCG, <0.5 <5 IU/L 08/02/2021 MK[facility] Quantitative, 11:58 PM CDT , P Comment: Biotin has been identified by the chantelle lockett as a potential interfering substance. ??Higher concentr ations of biotin may be found in multivitamins, hair/nail supple ments, and workout supplements. ??If the result does not [facility] clinical observations, repeat testing after patient refrains fr om the use of supplements for at least 12 hours. Specimen Anatomical Collection Method Collection Time Receive d Time (Source) Location / / Volume Laterality Blood (Blood, 08/02/2021 10:44 08/02/2021 Venous) PM CDT 10:50 PM CDT Juliana Stevens D.O. LAB BLOOD ADD-ON Performing Organization Address City/State/ZIP Code Phon e Number [facility]- [address] [place] [address] [place] [address] System in [place] [address] [place] [address] (ABNORMAL) CBC with Differential, Blood (08/02/2021 10:44 PM CDT) [facility] Method Time Signature Hemoglobin 7.8 (L) [...] Organization Address City/State/ZIP Code Phon e Number [facility]- [address] [place] [address] [place] [address] System in [place] [address] [place] [address] ECG 12 Lead (08/02/2021 10:31 PM CDT) P athologist Signature Ventricular Rate 86 BPM MUSE ECG/Min IN Interval 166 ms MUSE QRSD Interval 92 ms MUSE QT Interval 404 ms MUSE QTC Interval 484 ms MUSE P Baker 61 degrees MUSE R Baker 56 degrees MUSE T Wave Baker 32 degrees MUSE Specimen Anatomical Collection Method [...] Hypokalemia Elevated Bilirubin Anemia Cirrhosis Alcoholic (HCC) Cirrhosis Alcoholic (HCC) Hypertension [...] 0545 (New Bag - Provider: Shyla Ojeda REric.)0620 (Stopped - Provider: Shyla Ojeda R.N.) 12.5 g, intravenous, Once, On 08/03/21 at 0538, For 1 dose, If no infusion rate specified: Administer the 25% solution at 100 mL/hr fentaNYL injection 25 mcg (SUBLIMAZE) (COMPLETED) 2320 (Given - Provider: Rachel Vivar RGabby) 25 mcg, intravenous, Once, On 08/02/21 at 2222, For 1 dose fentaNYL injection 50 mcg (SUBLIMAZE) (COMPLETED) 0126 (Given - Provider: Rachle Vivar RSumaNSuma) 50 mcg, intravenous, Once, On 08/03/21 at [...] injection documented in this encounter Care Teams Wire Stretcher Relationship Specialty Start Date End Date Elsewhere, Pcp PCP - General Family Medicine 03/10/20 11/30/21 Ervin Schroeder MD Referring Provider Family Medicine 03/24/[address] [place] [phone] documented as of this encounter
--- OUTSIDE RECORDS SUMMARY | 2022-02-10 09:39 | XMS_ITS | Encounter Summary ---
:1990 Author Organization [facility] Address [address] [place] [address] Care Team Providers Name Role Phone Elsewhere, Pcp Primary Care Provider Unavailable Reason for Referral Outpatient (Routine) - Closed Specialty Diagnoses / Referred By Contact Referred To Procedures Contact Gastroenterology and Matthew Jerome, [facility] Region Hepatology Lilian Santillan [address] [place] [phone] Referral ID Status Reason Start Date Expiration Date Visits Requ ested Visits Authorized [id number] Closed 08/05/2021 08/05/2022 1 1 Occupational Therapy (Routine) - Closed Specialty Diagnoses / Procedures Referred By Contact Refer red To Contact Diagnoses Edema Leg Matthew Jerome M.B.B.S., [facility] Procedures OT Evaluate and treat M.Jeri [address] [place] [phone] Referral ID Status Reason Start Date Expiration Date Visits Requ ested Visits Authorized [id number] Closed 08/05/2021 08/05/2022 1 1 Reason for Visit Outpatient (Routine) - Closed Specialty Diagnoses / Referred By Contact Referred To Procedures Contact Gastroenterology and Kerry Naranjo, [facility] Hepatology TELEPHONE STERILIZER, LowellNDayne, M.S.N. [facility] [place] [phone] Referral ID Status Reason Start Date Expiration Date Visits Requ ested Visits Authorized [id number] Closed 07/21/2021 07/21/2022 1 1 Encounter Details Date Type Department Care Team Description 08/05/2021 Office Visit Department of Matthew Jerome Edema Leg (P rimary Dx); Gastroenterology in [place] Santillan Cirrhosis Alcoholic (HCC) [place], [place] [address] [place] [phone] Social History Tobacco Use Types [...] How often do you attend mandaeism or Patient refused 2021 anabaptism services? Do you belong to any clubs or No 02/10/2022 organizations such as mandaeism groups, unions, fraternal [...] or the highest technical, or vocational p [employer] degree you have received? 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 Worked at [employer] For 13 years she was a vegetarian, [...] on her own after a trip to [place] last July 2020, but could not remember why she decided to. Prior to that she had 4 episodes of recurrent pancreatitis. She states that the 1st illness she had was after a trip to [place] when she had abdominal pain and she [...] the liver Transplant selection committee meeting in [facility]. She agreed to proceed. I explained [...] contact the liver transplant coordinators to submit [id number], pending approval. Once approved, the transplant coordinators [...] her PCP #[id number] Newly diagnosed PFO with avniz-fq-annk atrial shunt: Echo done March 2020 # [...] OLAYINKA Trotter Gastroenterology, Hepatology and Transplant hepatology [facility] documented in this encounter Plan of Treatment Upcoming Encounters Date Type Specialty Care Team Description Virtual Visit Transplant Matthew Jerome M .B.B.S., Lilian [address] [place] [phone] 2 Rain Reyes R.N. [address] [place] [phone] Telemedicine Transplant LinaFederico 2 Brigid noyola M.D. [address] [place] [phone] Office Visit [facility] Internal Neda, 2 Solitario Perez P.A.-C. [address] [place] [phone] Lab Laboratory Medicine Karin, Olinda Adeline Gannon M.D., Ph.D. [address] [place] [phone] Lab Laboratory Medicine SaraOlinda rondon Adeline Gannon M.D., Ph.D. [address] [place] [address] [phone] Office Visit Transplant Karin, Olinda Adeline Gannon M.D., Ph.D. [address] [place] [phone] Appointment Radiology Matthew Jerome 2 Y M.B.B.SLilian Moise [address] [place] [phone] Appointment Gastroenterology and Adrianne, 2 Hepatology Yue Burciaga M.D. [address] [place] [phone] Office Visit Gastroenterology and Queenie Matthew 2 Hepatology Elizabeth Rodriguez.B.B.SLilian Moise [address] [place] [phone] Appointment Radiology Matthew Jerome 2 Y M.B.B.SLilian Moise [address] [place] [phone] [facility] (HCC) 2 Encounter Hepatology Jennifer M.B.B.SLilian Moise [address] [place] [phone] Anesthesia Event Gastroenterology and Rl, 2 Hepatology Ervin Burgos M.D. [address] [place] [phone] Surgery Gastroenterology and Mousa, Matthew ESOPHAG OGASTRODUODENOSCOPY 2 Hepatology Tyrell Rodriguez M.D. 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 DECORATOR Hypertension Portal (HCC) Scheduled Referrals Name Type [...] CDT eGFR-Black/Afri >90 >=60 08/11/2021 OWAT can Estonian mL/min/BSA 1:53 PM CDT Comment: ----ADDITIONAL INFORMATION---- [...] e Number [facility]- [address] [place] [address] [facility] [place] [address] System in [place] [address] documented in this encounter Visit Diagnoses Diagnosis Edema Leg - Primary Cirrhosis Alcoholic (HCC) Cirrhosis Alcoholic (HCC) Cirrhosis Alcoholic (HCC) Hypertension Portal (HCC) documented in this encounter Care Teams Roll Filler Relationship Specialty Start Date End Date Elsewhere, Pcp PCP - General Family Medicine 03/10/20 11/30/21 Ervin Schroeder MD Referring Provider Family Medicine 03/24/211979 [address] [place] [phone] documented as of this encounter
--- OUTSIDE RECORDS SUMMARY | 2022-02-10 09:39 | XMS_ITS | Encounter Summary ---
:1990 Author Organization [facility] Address [address] [place] [id number] Care Team Providers Name Role Phone Elsewhere, Pcp Primary Care Provider Unavailable Reason for Visit Auth/Cert Specialty Diagnoses / Procedures Referred By Contact Refer red To Contact Diagnoses Vomiting Abdominal pain Procedures n/a Referral ID Status Reason Start Date Expiration Date Visits Requ ested Visits Authorized [id number] 1 1 Encounter Details Date Type Department Care Team Description 07/26/2021 - Hospital Encounter [facility] Radha Bennett M. D. [address] [place] [phone] Vomiting (Primary 07/27/2021 [facility] Serene Montgomery M.D. [address] [place] [address] [phone] Dx) [facility], Fifth Floor [address] [place] [address] [phone] Social History Tobacco Use Types Packs/Day Years [...] you attend anabaptist or Patient refused 2021 orthodoxy services? Do you belong to any clubs or No 02/10/2022 organizations such as anabaptist groups, unions, fraternal [...] or the highest technical, or vocational p [facility] degree you have received? 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 Discharge Provider: Serene Montgomery M.D. Primary Team: T Medicine 1 ([facility]) Primary Care Providers: Elsewhere, Pcp (General) [...] 01 [facility] Laboratory Medicine 08/29/2021 4:00 PM [facility] COVID PRE SCREEN [facility] Family Medicine For appointment details refer to [...] more sleepy than usual. She presented to [facility] emergency department on 07/25 with nausea, vomiting, [...] local hospital beds, she was transferred to [facility] for further investigation and management. On presentation at [facility], she was in stable condition with [...] 07/26/2021 11:07 AM CDT T Medicine 1 ([facility]) Admission Note SUBJECTIVE CHIEF COMPLAINT Nausea [...] admitted locally and she was transferred to [place]. Of note, on 07/06/21, she presented to [...] border. TTE with bubble study showed a iktvt-wy-swwi shunt with a severely enlarged left atrium. Cardiology was consulted and recommended follow up with a petroleum laboratory technician in the outpatient setting. Ms. Carias tells [...] with her boyfriend in an apartment in [place], [place]. She is not currently working but usedto work at the [employer] in [place]. Her last drink of alcohol was in [...] intact. No evidence of disorganizedthinking. 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 She has insight into her history [...] female who presented to the ED in [place] yesterday with nausea and vomiting for about [...] that she followed up with them at [place]. - Plan: ?? Recommend Cardiology outpatient follow up. Baseline Mobility: BMAT Level 4 (Able to stand and walk) Diet: low sodium diet Tubes/lines: PIV VTE prophylaxis: heparin Code status: Full Code Surrogate Decision Maker: Parents and boyfriend, nabil Robin Disposition: Home documented in this encounter Nursing Notes Celena Richardson RGabby - 07/27/2021 2:54 PM CDT Problem: PAIN [...] questions. Thank you, ZACH Trevizo Clinical Documentation Locomotive Oiler Query created by: ZACH Trevizo 07/28/2021 11:55 [...] more sleepy than usual. She presented to [facility] emergency department on 07/25 with nausea, vomiting, [...] local hospital beds, she was transferred to [facility] for further investigation and management. On presentation at [facility], she was in stable condition with [...] Transplant Matthew Jerome M .B.B.S., M.D. [address] [place] [phone] 2 Rain Reyes R.N. [address] [place] [phone] Telemedicine Transplant Ashtyn 2 Brigid noyola M.D. [address] [place] [phone] Office Visit Community Internal Neda, 2 Medicine Vernell Perez [address] [place] [phone] Lab Laboratory Medicine Karin, 2 Adeline Gannon M.D., Ph.D. [address] [place] [phone] Lab Laboratory Medicine Karin, 2 Adeline Gannon M.D., Ph.D. [address] [place] [phone] Office Visit Transplant Karin, 2 Adeline Gannon M.D., Ph.D. [address] [place] [phone] Appointment Radiology Matthew Jerome 2 Y M.B.B.SSuma, Lilian [address] [place] [phone] Appointment Gastroenterology and Adrianne, 2 Hepatology Yue Burciaga M.D. [address] [place] [phone] Office Visit Gastroenterology and Matthew Jerome 2 Hepatology Jennifer M.B.B.SLilian Moise [address] [place] [phone] Appointment Radiology Matthew Jerome 2 Y M.Lilian Hudson [address] [place] [phone] Hospital Gastroenterology and [facility] Cirrhos is Alcoholic (HCC) 2 Encounter Hepatology Tyrell Rodriguez M.D. [address] [place] [phone] Anesthesia Event Gastroenterology and [facility], 2 Hepatology Ervin Burgos M.D. [address] [place] [phone] Surgery Gastroenterology and [facility] ESOPHAG OGASTRODUODENOSCOPY 2 Hepatology Tyrell Rodriguez M.D. 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 LAB BLOOD NON ADD-ON Performing Organization Address City/[facility] Phon e Number [facility] - [address] D[place] [address] Direct Antiglobulin Test (Poly) (07/27/2021 10:15 AM CDT) [facility] gist Method Time [facility] Direct Negative Negative 07/27/2021 [facility] Antiglobulin 10:50 AM CDT Test, Polyspecific Specimen Anatomical Collection Method Collection Time Receive d Time (Source) Location / / Volume Laterality Blood (Blood, 07/27/2021 10:15 07/27/2021 Venous) AM CDT 10:27 AM CDT Conor Santana., M.S. LAB BLOOD BANK TEST O RDERABLES Performing Organization Address City/[facility] Phon e Number [facility] - [address] STRM [address] Peripheral Smear Interpretation (07/27/2021 9:39 AM CDT) Component Value Ref Test Analysis Performed Pathologis t Range Method Time At [facility] 07/28/2021 [facility] 10:50 AM CDT Report Marcela Rogers M.D. 07/28/2021 [facility] electronically 10:50 AM signed by CDT I verify that I have examined all relevant slides/materials for the specimen(s) and rendered or confirmed the diagnosis. Interpretation Marked acanthocytosis present, compatible with clini ada 07/28/2021 [facility] history of alcohol-associated cirrhosis. 10:50 AM CDT Specimen Anatomical Collection Method Collection Time Receive d Time (Source) Location / / Volume Laterality Blood 07/27/2021 9:39 AM 9:39 CDT AM CDT Conor Santillan, M.S. LAB PATHOLOGY/CYTOLOG Y ORDERABLES Performing Organization Address [facility] Phon e Number [facility] - [address] (ABNORMAL) Reticulocytes (07/27/2021 9:39 AM CDT) Patholo gist Method Time Signature Reticulocytes, B 7.52 (H) 0.60 - 07/27/2021 [facility] 2.71 % 11:12 AM CDT Absolute 155.7 (H) 30.4 - 07/27/2021 [facility] Reticulocyte 110.9 11:12 AM CDT x10(9)/L Specimen Anatomical Collection Method Collection Time Receive d Time (Source) Location / / Volume Laterality Blood (Blood, 07/27/2021 9:39 AM 07/28/19 22 9:39 Venous) CDT AM CDT Conor Santana., M.S. LAB BLOOD ADD-ON Performing Organization Address City/[facility] Phon e Number [facility] - [address] (ABNORMAL) Morphology Evaluation (Special Smear) (07/27/2021 9:39 AM CDT) Analysis Performed At Patho logist Time Signature Neutrophilic Segs 78 (H) 50 - 75 % 07/28/2021 D[facility] and Bands 11:07 AM CDT Lymphocytes 16 (L) 18 - 42 % 07/28/2021 [facility] 11:07 AM CDT Monocytes 6 2 - 11 % 07/28/2021 [facility] 11:07 AM CDT Specimen Anatomical Collection Method Collection Time Receive d Time (Source) Location / / Volume Laterality Blood (Blood, 07/27/2021 9:39 AM 07/28/19 9:39 Venous) CDT AM CDT Conor Santillan, M.S. LAB BLOOD ADD-ON Performing Organization Address City/State/ZIP Code Phon e Number [facility] - [address] [place], [place] [address] [facility] [place] [address] [facility] [address] [place] [address] [facility] [address] [facility] (ABNORMAL) CBC with Differential, Blood (07/27/2021 5:10 AM CDT) [facility] gist Method Time Signature Hemoglobin 7.5 (L) [...] M.D. LAB BLOOD ADD-ON Performing Organization Address [facility] Phon e Number [facility] - [address] (ABNORMAL) Prothrombin Time (PT) (07/27/2021 5:09 AM CDT) [facility] gist Method Time Signature Prothrombin 31.4 (H) [...] Organization Address City/[facility] Phon e Number [facility] - [address] (ABNORMAL) Hepatic Function Panel (07/27/2021 5:09 [...] M.D. LAB BLOOD ADD-ON Performing Organization Address City/State/[facility] Code Phon e Number [facility] - [address] [place] [address] [facility] [address] [facility] 200 [facility] (ABNORMAL) Basic Metabolic Panel (07/27/2021 5:09 [...] 07/27/2021 DTL Black/ mL/min/BSA 5:52 AM CDT Chinese Comment: ----ADDITIONAL INFORMATION---- Estimated GFR calculated using [...] Organization Address City/[facility]/ZIP Code Phon e Number [facility] - [address] [place], [place] [address] [facility] [place] [address] [facility] [address] (ABNORMAL) Haptoglobin (07/27/2021 5:04 AM CDT) P athologist Signature Haptoglobin, S <14 (L) 30 - 200 07/29/2021 [facility] mg/dL 10:32 AM CDT Specimen Anatomical Collection Method Collection Time Receive d Time (Source) Location / / Volume Laterality Blood (Blood, 07/27/2021 5:04 AM 07/30/19 22 9:06 Venous) CDT AM CDT Kwabena Zelaya M.D. LAB BLOOD ADD-ON Performing Organization Address City/State/ZIP Code Phon e Number [facility] [address] [place], [place] [address] [facility] [address] Laboratory Medicine and Pathology [address] [place] (ABNORMAL) Hemoglobin (07/26/2021 9:57 PM CDT) P athologist Signature Hemoglobin 8.2 (L) 11.6 - 15.0 07/26/2021 DTL g/dL 10:19 PM CDT Specimen Anatomical Collection Method Collection Time Receive d Time (Source) Location / / Volume Laterality Blood (Blood, 07/26/2021 9:57 PM 07/27/19 22 Venous) CDT 10:14 PM CDT Ana Montanez M.D. LAB BLOOD ADD-ON Performing Organization Address City/State/ZIP Code Phon e Number [facility] - [address] [place], [place] [address] [facility] [place] [address] [facility] [address] Transfuse Red Blood [...] PROCEDURES Dipstick, Urine (07/26/2021 12:11 PM CDT) [facility] gist Method Time Signature Hemoglobin, Negative Negative [...] Organization Address City/[facility]/ZIP Code Phon e Number [facility] - 200 [place], [place] [address] [place] [address] [place], [place] [id number] [place] [address] Osmolality, Urine (07/26/2021 12:11 PM CDT) athologist Signature Osmolality, U 613 150 - 1150 07/26/2021 DT mOsm/kg 2:34 PM CDT Specimen Anatomical Collection Method Collection Time Receive d Time (Source) Location / / Volume Laterality Urine 07/26/2021 12:11 07/26/2021 PM CDT 12:58 PM CDT Virginie Batista M.D. LAB URINE ORDERABLES Performing Organization Address City/[facility]/ZIP Code Phon e Number [facility] - 200 [place], [place] [address] [place] [address] pH, Random, Urine (07/26/2021 12:11 PM CDT) athologist Signature pH, Random, U 6.7 4.5 - 8.0 07/26/2021 DTL 2:34 PM CDT Specimen Anatomical Collection Method Collection Time Receive d Time (Source) Location / / Volume Laterality Urine 07/26/2021 12:11 07/26/2021 PM CDT 12:58 PM CDT Virginie Batista M.D. LAB URINE ORDERABLES Performing Organization Address City/[facility]/ZIP Code Phon e Number [facility] - 200 [place], [place] [address] [place] [address] (ABNORMAL) Microscopic Manual (07/26/2021 12:11 PM [...] Organization Address City/[facility] Phon e Number [facility] - 200 [place], [place] [address] [place] [address] [place], [place] [id number] [place] [address] Urinalysis with Microscopic: Urine, Midstream (07/26/2021 12:11 PM CDT) [facility] Method Time Signature Source Urine, Urine, 07/26/2021 [...] Organization Address City/[facility] Phon e Number [facility] - 200 [place], [place] [address] [facility] [place] [address] (ABNORMAL) Prothrombin Time (PT) (07/26/2021 10:58 [...] Organization Address City/[facility] Phon e Number [facility] - [address] [place] [address] Laboratories-[address] CRP (C-Reactive Protein) (07/26/2021 10:58 AM CDT) P athologist Signature C-Reactive 4.6 <=8.0 mg/L 07/26/2021 DTL Protein (CRP), 11:55 AM CDT S Specimen Anatomical Collection Method Collection Time Receive d Time (Source) Location / / Volume Laterality Blood (Blood, 07/26/2021 10:58 07/26/2021 Venous) AM CDT 11:38 AM CDT Virginie Batista M.D. LAB BLOOD ADD-ON Performing Organization Address City/[facility] Phon e Number [facility] - [address] [place] [address] Laboratories-[address] (ABNORMAL) Basic Metabolic Panel (07/26/2021 10:58 [...] 07/26/2021 DTL Black/ mL/min/BSA 11:55 AM CDT Chinese Comment: ----ADDITIONAL INFORMATION---- Estimated GFR calculated using [...] 07/26/2021 Venous) AM CDT 11:38 AM CDT Virginei Batista M.D. LAB BLOOD ADD-ON Performing Organization Address City/State/ZIP Code Phon e Number [facility] - [address] [place], [place] [address] [facility] [place] [address] [facility] [address] (ABNORMAL) CBC with Differential, Blood (07/26/2021 10:58 AM CDT) [facility] Method Time Signature Hemoglobin 6.8 (L) 11.6 [...] City/State/ZIP Code Phon e Number [facility] - [facility] [address] [place], [place] [address] [facility] [place] [place] [address] [facility] [address] Type and Screen (with reflex Antibody ID) (07/26/2021 10:57 AM CDT) [facility] Method Time Signature ABORh B Pos Not 07/26/2021 STRM applicable 3:48 PM CDT Antibody Negative Negative 07/26/2021 STRM Screen 4:04 PM CDT Type & Screen 07/29/2021 07/26/2021 STRM Expiration 23:59 3:48 PM CDT Testing [place] DEFAULT 07/26/2021 STRM Location 3:29 PM CDT Specimen Anatomical Collection Method Collection Time Receive d Time (Source) Location / / Volume Laterality Blood (Blood, 07/26/2021 10:57 07/26/2021 3:29 Venous) AM CDT PM CDT Virginie Batista M.D. LAB BLOOD BANK TEST ORDERABL ES Performing Organization Address [facility] Phon e Number [address] [address] [facility] [place] [address] [facility] 200 [facility] (ABNORMAL) Hepatic Function Panel (07/26/2021 10:57 AM CDT) [facility] Method Time Signature Bilirubin, Total, S 7.5 [...] M.D. LAB BLOOD ADD-ON Performing Organization Address City/State/[facility] Code Phon e Number [facility] - 200 [place], [place] [address] [place] [address] [facility] 200 [facility] Magnesium (07/26/2021 10:57 AM CDT) athologist Signature Magnesium, S 1.8 1.7 - 2.3 07/26/2021 DT mg/dL 3:17 PM CDT Specimen Anatomical Collection Method Collection Time Receive d Time (Source) Location / / Volume Laterality Blood (Blood, 07/26/2021 10:57 07/26/2021 2:55 Venous) AM CDT PM CDT Virginie Batista M.D. LAB BLOOD ADD-ON Performing Organization Address City/State/ZIP Code Phon e Number [facility] - 200 [place], [place] [address] [place] [address] ECG 12 Lead (07/26/2021 9:10 AM CDT) athologist Signature Ventricular Rate 77 BPM MUSE ECG/Min MA Interval 160 ms MUSE QRSD Interval 92 ms MUSE QT Interval 418 ms MUSE QTC Interval 473 ms MUSE P [place] -12 degrees MUSE R [place] 53 degrees MUSE T Wave [place] -6 degrees MUSE Specimen Anatomical Collection Method [...] Diagnosis Vomiting - Primary Cirrhosis Alcoholic (HCC) Cirrhosis Alcoholic [...] 10, headaches, Starting on 07/26/21 at 1038 maynzvkwvinyf-ivkynvcxue-kofmqumt in Lipoderm Given 07/28/19 10:15 AM CDT [...] sleep, Starting on Sat 2 at 1354 diimtxesurao-ophz-RD-Ca-minerals 400 mcg Given 07/27/2021 8:00 A M [...] shown in CDT. Scheduled Medication Order 07/25/2021 07/26/202107/27/2021 cholecalciferol tablet 400 Units (VITAMIN D3) 0800 (Given - Provider: Celena Richardson RSumaNSuma) 400 Units, oral, Daily, First dose on Donohue n 07/27/21 at 0900, cholecalciferol 400 units oral daily was interchanged for ergocalciferol 400 units oral daily ciprofloxacin tablet 500 mg (CIPRO) 0800 (Given - Provider: Celena Richardson RSumaNSuma) 500 mg, oral, Daily before breakfast, [...] (CANCELED) 0800 (Given - Provider: Celena Richardson RSumaNSuma) 1 mg, oral, Daily, First dose on 07/27/21 at 0900 folic acid tablet 5 mg 5 mg, oral, Daily, First dose (after last modification) on M on 07/28/21 at 0900 furosemide tablet 20 mg (LASIX) 1116 (Given - Pr ovider: Humera Murray R.N.) 0800 (Given - Provider: Celena Richardson RSumaNSuma) 20 mg, oral, Daily, First dose on 07/26/21 at 1045 gabapentin capsule 300 mg (NEURONTIN) 14 09 (Given - Provider: Humera Murray R.N.)2006 (Given - Provider: Ana Paula Noriega R.N.) 0800 (Given - Provider: Celena Richardson R.N.)1406 (Given - Provider: Celena Richardson RSumaNSuma) 300 [...] Patient/family refused)0106 (Given - Provider: Ana Paula Norieag R.N. - Comment: pt preference) 25 mg, oral, Daily at bedtime, First dose on 07/26/21 at 2100 lactulose solution 30 g (CHRONULAC) 1410 (Given - Provider: Humera Murray R.N.)2007 (Given - Provider: Ana Paula Noriega R.N.) 0800 (Given - Provider: Celena Richardson R.N.)1406 (Given - Provider: Celena Richardson R.N.) 30 g, oral, 3 times daily, First dose on 07/26/21 at 1400 magnesium oxide tablet 400 mg (MAG-OX) 1 614 (Given - Provider: Humera Murray R.N.) 0800 (Given - Provider: Celena damon RSumaNSuma) 400 mg, oral, 2 times daily before break fast and dinner, First dose on 07/26/21 at 1600 wftnohncahzx-qnje-DU-Ca-minerals 400 mcg (folic acid) tablet 1 tablet (THERAPEUTIC-M) 0800 (Given - Provid er: Andrew MartinezNSuma) 1 tablet, oral, Daily, First dose on 07/27/[address] tablet 40 mg (PROTONIX) 0800 (Given - Provider: Celena Richardson RSumaNSuma) 40 mg, oral, Daily before breakfast, Fir st dose on 07/27/21 at 0700, Swallow whole. Do NOT crush, chew, or split tablet. potassium chloride ER tablet 40 mEq (KLORCON/K-TAB) (COMPLET ED) 1409 (Given - Provider: Humera Murray R.NSuma) 40 mEq, oral, Once, On 07/26/21 at [...] Prophylaxis, medical spironolactone tablet 50 mg (ALDACTONE) 111 (Given - Provider: Humera Murray RSumaNSuma) 0800 (Given - Provider: Celena damon RSumaNSuma) 50 mg, oral, Daily, First dose on 07/26/21 at 1045 thiamine tablet 100 mg (VITAMIN B1) 08 (Given - Provider: Celena Richardson RSumaNSuma) 100 mg, oral, Every morning, First dose on 07/27/21 at 0900 vitamin A capsule 3,000 mcg 3,000 mcg, oral, 3 times weekly (Once on Wed), First dose on Wed07/28/21 at [...] 10, headaches, Starting on 07/26/21 at 1038 aktbtjnjrqqlw-dlplrysopc-wxpozkzc in Lipoderm 2%-5%-5% cream 1 g 1220 (Given - Provider: Humera Murray R.N.) 0108 (Given - Provider: Andrew Capellan)1015 (Given - Provider: Celena Richardson R.N.) 1 g, topical, 2 times daily PRN, [...] (ZOFRAN-ODT) 1722 (Given - Provider: Humera Murray R.N.) 4 mg, oral, Every 6 hours PRN, nausea, v omiting, Starting on 07/26/21 at 1615, When splitting ODT at bedside, handle with gloves and a pill splitter to prevent moisture contact. oxyCODONE IR tablet 5 mg (ROXICODONE) 11 16 (Given - Provider: Humera Murray R.N.)2237 (Given - Provider: Ana Paula Noriega R.N.) 0813 (Given - Provider: Celena Richardson R.N.)1444 (Given - Provider: Celena Richardson RGabby) 5 mg, oral, Every 6 hours PRN, moderate pain or score 4-6 of 10, severe pain or score 7-10 of 10, Starting on 07/26/21 at 1036 documented in this encounter Care Teams Principal Strategist Relationship Specialty Start Date End Date Elsewhere, Pcp PCP - General Family Medicine 03/10/20 11/30/21 Ervin Schroeder MD Referring Provider Family Medicine 03/24/[address] [place] [phone] documented as of this encounter
--- OUTSIDE RECORDS SUMMARY | 2022-02-10 09:39 | XMS_ITS | Encounter Summary ---
:1990 Author Organization [facility] Address [address] [place] [address] Care Team Providers Name Role Phone Elsewhere, Pcp Primary Care Provider Unavailable Reason for Visit Reason Comments Leg Swelling Encounter Details Date Type Department Care Team Description 08/01/2021 Nurse Triage [facility], [facility], [facility], in [address] [phone] [place] [address] [phone] Social History Tobacco Use Types Packs/Day Years [...] How often do you attend hinduism or Patient refused 2021 yarsani services? 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 Photos were sent to her sourcing assistant. History of Alcoholic Cirrhosis, Live failure, chronic [...] or worsening Protocols used: LEG SWELLING AND TMGRA-PLQWY-CV documented in this encounter Plan of Treatment Upcoming Encounters Date Type Specialty Care Team Description Virtual Visit Transplant Matthew Jerome M .B.B.S., M.D. [address] [place] [phone] 2 Rain Reyes R.N. [address] [place] [phone] Telemedicine [facility] 2 Brigid noyola M.D. [address] [place] [phone] Office Visit [facility]ly [facility] Internal Carlos, 2 Medicine Vernell Perez [address] [place] [address] Lab Laboratory Medicine Karin, 2 Adeline Gannon M.D., Ph.D. [address] [place] [phone] Lab Laboratory Medicine Olinda Frazier M.D., Ph.D. [address] [place] [phone] Office Visit Transplant Karin, 2 Adeline Gannon M.D., Ph.D. [address] [place] [phone] Appointment Radiology Matthew Jerome 2 YKishore.BGraeme, Lilian [address] [place] [phone] Appointment Gastroenterology and Adrianne 2 Hepatology Yue Burciaga M.D. [address] [place] [phone] Office Visit Gastroenterology and Matthew Jerome 2 Hepatology Joshua RodriguezB.B.Lilian Stockton [address] [place] [phone] Appointment Radiology Matthew Jerome 2 Y M.B.B.SLilian Moise [address] [place] [phone] Hospital Gastroenterology and Matthew Jerome Cirrhos is Alcoholic (HCC) 2 Encounter Hepatology Elizabeth Rodriguez.B.B.SLilian Moise [address] [place] [phone] Anesthesia Event Gastroenterology and Rl, 2 Hepatology Ervin Burgos M.D. [address] [place] [address] [phone] Surgery Gastroenterology and Matthew Jerome ESOPHAG OGASTRODUODENOSCOPY 2 Hepatology Tyrell Rodriguez M.D. 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
--- OUTSIDE RECORDS SUMMARY | 2022-02-10 09:39 | XMS_ITS | Encounter Summary ---
:1990 Author Organization [facility] Address [address] [place] [address] Care Team Providers Name Role Phone Elsewhere, Pcp Primary Care Provider Unavailable Encounter Details Date Type Department Care Team Description 08/13/2021 Orders Only Department of Mousa, Matthew Y, Ascites [place] silva Gastroenterology in Joshua Santillan (Primary Dx) [place], [place] 1025 [facility] 1025 [place] [phone] Social History Tobacco Use Types Packs/Day Years [...] you attend restorationism or Patient refused 2021 sabianism services? 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 [address] [place] [phone] Telemedicine Transplant LinaFederico 2 Brigid noyola M.D. [address] [place] [address] [phone] Office Visit Community Internal Neda, 2 Solitario Perez P.A.-C. 300 [place] [phone] Lab Laboratory Medicine Karin, 2 Adeline Gannon M.D., Ph.D. [address] [place] [phone] Lab Laboratory Medicine Charlesalexa, 2 Adeline Gannon M.D., Ph.D. [address] [place] [phone] Office Visit Transplant Karin, 2 Adeline Gannon M.D., Ph.D. [address] [place] [phone] Appointment Radiology Matthew Jerome 2 YJoshuaB.BLilian Bedolla [address] [place] [phone] Appointment Gastroenterology and Adrianne, 2 Hepatology Yue Burciaga M.D. [address] [place] [phone] Office Visit Gastroenterology and Queenie Matthew 2 Hepatology Joshua RodriguezBSumaBLilian Bedolla [address] [place] [phone] Appointment Radiology Matthew Jerome 2 YJoshuaB.B.SLilian Moise [address] [place] [phone] [facility] Cirrhos is Alcoholic (HCC) 2 Encounter Hepatology Joshua RodriguezB.B.Lilian Stockton [address] [place] [phone] Anesthesia Event Gastroenterology and Rl, 2 Hepatology Ervin Burgos M.D. [address] [place] [phone] Surgery Gastroenterology and Mousa, Matthew ESOPHAG OGASTRODUODENOSCOPY 2 Hepatology Tyrell Rodriguez M.D. [address] [place] [address] [phone] Scheduled Procedures Name Priority Associated Diagnoses Date/Time ESOPHAGOGASTRODUODENOSCOPY Cirrhosis Alc oholic (HCC) 03/20/2022 8:45 AM DIRECTOR OF EXHIBIT DEVELOPMENT Hypertension Portal (HCC) documented as of this encounter Visit Diagnoses Diagnosis Ascites Chronic - Primary Cirrhosis Alcoholic (HCC) Cirrhosis Alcoholic (HCC) Hypertension Portal (HCC) documented in this encounter Care Teams Web Project Manager Relationship Specialty Start Date End Date Elsewhere, Pcp PCP - General Family Medicine 03/10/20 11/30/21 Ervin Schroeder MD Referring Provider Family Medicine 03/24/[address] [place] [phone] documented as of this encounter
--- OUTSIDE RECORDS SUMMARY | 2022-02-10 09:40 | XMS_ITS | Encounter Summary ---
:1990 Author Organization [facility] Address [address] [place] [address] Care Team Providers Name Role Phone Elsewhere, Pcp Primary Care Provider Unavailable Encounter Details Date Type Department Care Team Description 07/16/2021 Clinical Communication Department of Kerry Narajno Gastroenterology in [place], [place] C.N.P., M.S.N. 1025 [facility] 1025 [place] [address] [place], [place] [phone] Social History Tobacco Use Types Packs/Day [...] you attend evangelical or Patient refused 2021 yarsanism services? Do [...] at Date Recorded Female 04/12/2021 7:39 PM HEAD OF MOBILE documented as of this encounter Miscellaneous Notes [...] Transplant Matthew Jerome M .B.B.S., Lilian 1025 [place] [address] 2 Rain Reyes R.N. [address] [place] [phone] Telemedicine Transplant LinaFederico 2 Brigid noyola M.D. [address] [place] [phone] Office Visit Community Internal [facility], 2 Medicine Vernell Perez [address] [place] [phone] Lab Laboratory Medicine Karin, 2 Adeline Gannon M.D., Ph.D. [address] [place] [phone] Lab Laboratory Medicine Karin, 2 Adeline Gannon M.D., Ph.D. [address] [place] [phone] Office Visit Transplant Karin, 2 Adeline Gannon M.D., Ph.D. [address] [place] [phone] Appointment Radiology Matthew Jerome 2, M.B.B.S., Lilian [address] [place] [phone] Appointment Gastroenterology and Adrianne, 2 Hepatology Yue Burciaga M.D. [address] [place] [phone] Office Visit Gastroenterology and Matthew Jerome 2 Hepatology Tyrell Rodriguez, Lilian [address] [place] [phone] Appointment Radiology Matthew Jerome 2 YTyrell M.D. [address] [place] [phone] Hospital Gastroenterology and Queenie Matthew Cirrhos is Alcoholic (HCC) 2 Encounter Hepatology Tyrell Rodriguez, Lilian [address] [place] [phone] Anesthesia Event Gastroenterology and Rl, 2 Hepatology Ervin Burgos M.D. [address] [place] [address] [phone] Surgery Gastroenterology and Queenie Matthew ESOPHAG OGASTRODUODENOSCOPY 2 Hepatology Tyrell Rodriguez M.D. [address] [place] [phone] Scheduled Procedures Name Priority Associated Diagnoses Date/Time ESOPHAGOGASTRODUODENOSCOPY Cirrhosis Alc oholic (HCC) 03/20/2022 8:45 AM HEAD OF MOBILE Hypertension Portal (HCC) documented as of this encounter Visit Diagnoses Not on filedocumented in this encounter Care Teams Racing Secretary And Handicapper Relationship Specialty Start Date End Date Elsewhere, Pcp PCP - General Family Medicine 03/10/20 11/30/21 Ervin Schroeder MD Referring Provider Family Medicine 03/24/[address] [place] [phone] documented as of this encounter
--- OUTSIDE RECORDS SUMMARY | 2022-02-10 09:40 | XMS_ITS | Encounter Summary ---
:1990 Author Organization [facility] Address [address] [place] [address] Care Team Providers Name Role Phone Elsewhere, Pcp Primary Care Provider Unavailable Reason for Visit Reason Comments Sleepiness Encounter Details Date Type Department Care Team Description 07/19/2021 Documentation Division of Gastroenterology Wali Baldwin in [facility] pedro Mendez M.D. 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 - 07/19/2021 2:04 AM CDT On-call Fellow Note: Patient is not a patient of [facility] but was connected to the on- call [...] replacement of vitamin E. Chano Baldwin M.D. 03/19/22 documented in this encounter Plan of Treatment Upcoming Encounters Date Type Specialty Care Team Description Virtual Visit Transplant Matthew Jerome M .B.B.S., Lilian 1025 [place] [address] 2 Rain Reyes R.N. [address] [place] [phone] Telemedicine [facility]plant [facility] 2 Brigid noyola M.D. [address] [place] [phone] Office Visit [facility] Internal [facility], 2 Medicine Vernell Perez [address] [place] [phone] Lab Laboratory Medicine Karin, 2 Adeline Gannon M.D., Ph.D. [address] [place] [address] [phone] Lab Laboratory Medicine Karin, 2 Adeline Gannon M.D., Ph.D. [address] [place] [phone] Office Visit Transplant Karin, 2 Adeline Gannon M.D., Ph.D. [address] [place] [phone] Appointment Radiology Matthew Jerome 2, M.B.B.S., Lilian [address] [place] [phone] Appointment Gastroenterology and Adrianne, 2 Hepatology Yue Burciaga M.D. [address] [place] [phone] Office Visit Gastroenterology and Matthew Jerome 2 Hepatology Vik RodriguezBLilian Bedolla [address] [place] [address] [phone] Appointment Radiology Matthew Jerome 2 Tyrell Rodriguez M.D. [address] [place] [address] [phone] Hospital Gastroenterology and Matthew Jerome Cirrhos is Alcoholic (HCC) 2 Encounter Hepatology Joshua RodriguezBSumaBLilian Bedolla [address] [place] [address] [phone] Anesthesia Event Gastroenterology and Rl, 2 Hepatology Ervin Burgos M.D. [address] [place] [phone] Surgery Gastroenterology and Luischantell Matthew ESOPHAG OGASTRODUODENOSCOPY 2 Hepatology Joshua RodriguezBSumaBLilian Bedolla [address] [place] [phone] Scheduled Procedures Name Priority Associated Diagnoses Date/Time ESOPHAGOGASTRODUODENOSCOPY Cirrhosis Alc oholic (HCC) 03/20/2022 8:45 AM BUYER TOBACCO HEAD Hypertension Portal (HCC) documented as of this encounter Visit Diagnoses Not on filedocumented in this encounter Care Teams Wall Steamer Relationship Specialty Start Date End Date Elsewhere, Pcp PCP - General Family Medicine 03/10/20 11/30/21 Ervin Schroeder MD Referring Provider Family Medicine 03/24/[address] [place] [phone] documented as of this encounter
--- OUTSIDE RECORDS SUMMARY | 2022-02-10 09:40 | XMS_ITS | Encounter Summary ---
:1990 Author Organization [facility] Address [address] [place] [address] Care Team Providers Name Role Phone Elsewhere, Pcp Primary Care Provider Unavailable Reason for Visit Reason Comments Vomiting Pt reports hx of liver cirrh osis, states discussed symptoms of vomiting, inability to tolerate home m edications with specialty team and referred to ED for further evaluation. Encounter Details Date Type Department Care Team Description 07/25/2021 - [facility] M.[facility] [address] [place] [phone] Abdominal Pain (Primary Dx); 07/26/2021 [facility] Les Jj D.O. [address] [place] [address] Nausea And Vomiting Emergency Department [facility]5 [place] [address] Social History Tobacco Use Types [...] you attend mu-ism or Patient refused 2021 shinto services? 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 Godwin. Disposition pending transfer to [place] for abdominal pain, generalized weakness, nausea/vomiting,underlying liver [...] COURSE: ED Course as of 07/26/21 0156 Fri Jul 25, 2021 2101 Patient history of alcoholic [...] Transplant Matthew Jerome M .B.B.S., Lilian [address] [place] [address] 2 Rain Reyes R.N. [address] [place] [phone] Telemedicine Transplant LinaFederico 2 Brigid noyola M.D. [address] [place] [phone] Office Visit Community Internal Deanovic, 2 Medicine Vernell Perez 300 [facility] [place] [phone] Lab Laboratory Medicine Karin, 2 Adeline Gannon M.D., Ph.D. [address] [place] [phone] Lab Laboratory Medicine Karin, 2 Adeline Gannon M.D., Ph.D. [address] [place] [phone] Office Visit Transplant Karin, 2 Adeline Gannon M.D., Ph.D. [address] [place] [phone] Appointment Radiology Matthew Jerome 2 Y M.B.B.SSuma, MJules [address] [place] [phone] Appointment Gastroenterology and Adrianne, 2 Hepatology Yue Burciaga M.D. [address] [place] [phone] Office Visit Gastroenterology and Matthew Jerome 2 Hepatology Jennifer M.B.B.SSuma, MJules [address] [place] [phone] Appointment Radiology Matthew Jerome 2 Y M.B.B.SSuma, MJules [address] [place] [phone] Hospital Gastroenterology and Matthew Jerome Cirrhos is Alcoholic (HCC) 2 Encounter Hepatology Tyrell Rodriguez M.D. [address] [place] [address] Anesthesia Event Gastroenterology and Rl, 2 Hepatology Ervin Burgos M.D. [address] [place] [address] Surgery Gastroenterology and Mousa, Matthew ESOPHAG OGASTRODUODENOSCOPY 2 Hepatology Tyrell Rodriguez M.D. [address] [place] [address] Scheduled Procedures Name Priority Associated Diagnoses Date/Time ESOPHAGOGASTRODUODENOSCOPY Cirrhosis Alc oholic (HCC) 03/20/2022 8:45 AM ASSOCIATE FINANCIAL ANALYST Hypertension Portal (HCC) documented as of [...] PCR Rapid, V (07/25/2021 9:50 PM CDT) [facility] Method Time Signature SARS CoV-2, Undetected Undetected 07/25/2021 MKTO PCR, Rapid, V 10:32 PM CDT Comment: ----ADDITIONAL INFORMATION---- This RT-PCR test was performed using the Daniel SARS-CoV-2 and Influenza A/B Reagent assay from [employer], which has received Emergency Use Authori zation(EUA) by the U.S. Food and Drug Administration . Fact sheets for this Emergency Use Autho rization (EUA) assay can be found at the following link s: For Healthcare Providers: https://www.fda.gov/media/441043/downloa d For Patients: https://www.fda.gov/media/700934/downloa d SARS Coronavirus 2, Source, Swab, Nasopharynx 07/02 10:06 PM CDT [facility] Rapid Specimen Anatomical Collection Method Collection Time Receive d Time (Source) Location / / Volume Laterality Varies 07/25/2021 9:50 PM CDT 10:06 PM CDT Anthony Godwin M.D. LAB MICROBIOLOGY - GENERAL O RDERABLES Performing Organization Address City/State/ZIP Code Phon e Number [facility]- [address] [place] [address] [place] [address] [address] SARS Coronavirus 2, PCR, V Asymptomatic (07/25/2021 9:50 PM CDT) P athologist Signature SARS-Coronavir CANCELED 07/25/2021 MKTO us-2, PCR 10:06 PM CDT Comment: ----ADDITIONAL INFORMATION---- This RT-PCR test using the Xpert Xpress SARS-CoV-2/Flu/RSV assay ([employer] performed on the [employer] DX systems has received Emergency Use Authorization (EU A) by the U.S. Food and Drug Administration. Performanc e characteristics were verified by [facility] inic in a manner consistent with CLIA requirements . Fact sheets for this Emergency Use Autho rization (EUA) assay can be found at the following link s: For Healthcare Providers: https://www.fda.gov/media/773498/downloa d For Patients: https://www.fda.gov/media/772086/downloa d Result canceled by the ancillary. Specimen Source CANCELED 07/25/2021 10:06 PM CDT MKTO Comment: REVISED RESULTS Specimen Anatomical Collection Method Collection Time Receive d Time (Source) Location / / Volume Laterality Varies 07/25/2021 9:50 PM 2 (Nasopharynx) CDT 10:06 PM CDT Narrative [facility] - 07/25/2021 10:06 PM CDT SARS Coronavirus 2, PCR, V was cancelled on 07/25/2021 at 22:06; Duplicate test request. Anthony Godwin M.D. LAB MICROBIOLOGY - GENERAL O RDERABLES Performing Organization Address City/State/ZIP Code Phon e Number [facility]- [address] [place] [address] [place] [address] (ABNORMAL) Ammonia (07/25/2021 7:05 PM CDT) [...] Phon e Number [facility]- [facility] [place] [address] [place] [address] Lipase (07/25/2021 7:05 PM CDT) P [...] Phon e Number [facility]- [address] [place] [address] [place] [address] System in [place] 1025 [facility] (ABNORMAL) Comprehensive Metabolic Panel (07/25/2021 7:05 PM [...] CDT eGFR-Black/Afri >90 >=60 07/25/2021 MKTO can [place] mL/min/BSA 7:30 PM CDT Comment: ----ADDITIONAL INFORMATION---- [...] Phon e Number [facility]- [address] [place] [address] [place] [address] [address] (ABNORMAL) CBC with Differential, Blood (07/25/2021 7:05 PM CDT) [facility] Method Time Signature Hemoglobin 7.4 (L) [...] Phon e Number [facility]- [address] [place] [id number] [place] [address] [place] [address] [address] documented in this encounter Visit Diagnoses Diagnosis Abdominal Pain - Primary Nausea And Vomiting Cirrhosis Alcoholic (HCC) Cirrhosis Alcoholic (HCC) Hypertension [...] Daily, First dose on 07/26/21 at 0900 lactulose solution 30 g (CHRONULAC) [...] documented as of this encounter Care Teams Actuarial Assistant Relationship Specialty Start Date End Date Elsewhere, Pcp PCP - General Family Medicine 03/10/20 11/30/21 Ervin Schroeder MD Referring Provider Family Medicine 03/24/[address] [place] [phone] documented as of this encounter
--- OUTSIDE RECORDS SUMMARY | 2022-02-10 09:40 | XMS_ITS | Encounter Summary ---
:1990 Author Organization [facility] Address [address] [place] [address] Care Team Providers Name Role Phone Elsewhere, Pcp Primary Care Provider Unavailable Reason for Referral Outpatient (Routine) - Closed Specialty Diagnoses / Referred By Contact Referred To Procedures Contact [facility] Katrin VIGIL.NDayne, M.S.N. [address] [place] [address] Referral ID Status Reason Start Date Expiration Date Visits Requ ested Visits Authorized [id number] Closed 07/21/2021 07/21/2022 1 1 edication Prior Authorization - Closed Specialty Diagnoses / Procedures Referred By Contact Refer red To Contact Kerry Naranjo APRN, C.N.Shanita., M.S.N. [address] [place] [address] Referral ID Status Reason Start Date Expiration Date Visits Requ ested Visits Authorized [id number] Closed 1 1 Reason for Visit Outpatient (Routine) - Closed Specialty Diagnoses / Referred By Contact Referred To Procedures Contact Gastroenterology and Kerry Naranjo, [facility] Hepatology Katrin VIGIL.NDayne, M.S.N. [address] [place] [address] Referral ID Status Reason Start Date Expiration Date Visits Requ ested Visits Authorized [id number] Closed 04/17/2021 04/17/2022 1 1 Encounter Details Date Type Department Care Team Description 07/21/2021 Telemedicine Department of Kerry Naranjo Cirrhosis Alc oholic (HCC) (Primary Dx); Gastroenterology in S, MULTI SKILLED OPERATOR, Ascites; [place], [place] C.N.P., Deficiency Vitamin D; [address] [facility] M.S.N. Malnutrition Protein-Calorie Unspecified (HCC); [place] [address] [facility] Deficiency Coagulation Acquired (HCC); [phone] [place], [place] Thrombocytopeni a (HCC); [phone] Jaundice Social History Tobacco Use Types Packs/Day Years [...] you attend shinto or Patient refused 2021 mandaeism services? Do [...] at Date Recorded Female 04/12/2021 7:39 PM PERINATAL TECH documented as of this encounter Patient Instructions Patient InstructionsKerry Naranjo, YARITZA, C.N.P., M.S.N. - 07/21/2021 2:45 PM CDT [...] to find a internal medicine provider at [facility] or [facility]; if she feels she needs to be seen more urgently; I would recommend the [facility] which is closest to her. For emergency situation she should present to any emergency department that is closest to her. documented in this encounter Progress Notes Kerry Naranjo APRN, C.N.P., M.S.N. - 07/21/2021 2:45 PM CDT Kerry Naranjo APRN, C.N.P., M.S.N. [address] [place] [address] Patient Name: Catia Carias Date of : 1990 Date of encounter: 07/21/21 ELSEWHERE, PCP VIDEO VISIT Consult conducted via real-time audio/video technology by Kerry Naranjo APRN, C.N.P., M.S.N. at the [facility] to the patient in their home. At the time the patient was scheduled, the outpatient scheduler read the following script to the [...] primary care provider Dr. Ervin Schroeder, from [facility] in [facility]; phone [phone], . She stateshe prescribed vitamin-D for GERD [...] and Family: Twice a week ??? Attends Tenriism Services: Never ??? 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 -ordered Vitamin [...] to find a internal medicine provider at [facility] or [facility]; if she feels she needs to be seen more urgently; I would recommend the [facility] which is closest to her. For emergency [...] Naranjo APRN, C.N.P., M.S.N. Gastroenterology and Hepatology [facility] documented in this encounter Plan of Treatment Upcoming Encounters Date Type Specialty Care Team Description Virtual Visit Transplant Matthew Jerome M .B.B.S., M.Jeri [address] [place] [address] 2 Rain Reyes R.N. [address] [place] [address] [phone] Telemedicine Transplant LinaDemarcus 2 Brigid noyola M.D. [address] [place] [phone] [facility] 2 Medicine Vernell Perez [address] [place] [phone] Lab Laboratory Medicine Karin, 2 Adeline Gannon M.D., Ph.D. [address] [place] [phone] Lab Laboratory Medicine Karin, 2 Adeline Gannon M.D., Ph.D. [address] [place] [phone] Office Visit Transplant Karin, 2 Adeline Gannon M.D., Ph.D. [address] [place] [phone] Appointment Radiology Matthew Jerome 2 YTyrell, MJules [address] [place] [address] Appointment Gastroenterology demian Silver, 2 Hepatology Yue Burciaga M.D. [address] [place] [phone] Office Visit Gastroenterology and Queenie Matthew 2 Hepatology Tyrell Rodriguez M.D. [address] [place] [phone] Appointment Radiology Matthew Jerome 2 YTyrell M.D. [address] [place] [phone] Hospital Gastroenterology and Alchantell Matthew Cirrhos is Alcoholic (HCC) 2 Encounter Hepatology Tyrell Rodriguez M.D. [address] [place] [phone] Anesthesia Event Gastroenterology and Rl, 2 Hepatology Ervin Burgos M.D. [address] [place] [phone] Surgery G[facility] ESOP[facility]AG OGASTRODUODENOSCOPY 2 Hepatology Tyrell Rodriguez M.D. [address] [place] [phone] Scheduled Procedures Name Priority Associated Diagnoses Date/Time ESOPHAGOGASTRODUODENOSCOPY Cirrhosis Alc oholic (HCC) 03/20/2022 8:45 AM PERINATAL TECH Hypertension Portal (HCC) Scheduled Referrals Name Type Priority Associated Order Schedule Diagnoses Gastroenterology and Outpatient Routine Expecte d: Hepatology office visit Referral 07/02, (clinic) Expires: 10/21/2022 documented as of this encounter Visit Diagnoses Diagnosis Cirrhosis Alcoholic (HCC) - Primary Ascites Deficiency Vitamin D Malnutrition Protein-Calorie Unspecified (HCC) Deficiency Coagulation Acquired (HCC) Thrombocytopenia (HCC) Jaundice Cirrhosis Alcoholic (HCC) Cirrhosis Alcoholic (HCC) Hypertension Portal (HCC) documented in this encounter Care Teams Glass Furnace Operator Relationship Specialty Start Date End Date Elsewhere, Pcp PCP - General Family Medicine 03/10/20 11/30/21 Ervin Schroeder MD Referring Provider Family Medicine 03/24/[address] [place] [phone] documented as of this encounter
--- OUTSIDE RECORDS SUMMARY | 2022-02-10 09:40 | XMS_ITS | Encounter Summary ---
:1990 Author Organization [facility] Address [address] [place] [address] Care Team Providers Name Role Phone Elsewhere, Pcp Primary Care Provider Unavailable Encounter Details Date Type Department Care Team Description 07/23/2021 Orders Only Pharmacy Prior Auth Maye Clements [phone] Social History Tobacco Use Types Packs/Day Years [...] you attend orthodoxy or Patient refused 2021 amish services? Do you belong to any clubs or No 02/10/2022 organizations such as orthodoxy groups, unions, fraternal [...] at Date Recorded Female 04/12/2021 7:39 PM REINFORCING ROD LAYER documented as of this encounter Plan of Treatment Upcoming Encounters Date Type Specialty Care Team Description Virtual Visit Transplant Matthew Jerome M .B.B.S., MJules [address] [place] [address] 2 Rain Reyes RGabby [address] [place] [phone] Telemedicine Transplant LinaDemarcus 2 Brigid noyola M.D. [address] [place] [address] [phone] Office Visit Community Internal Neda, 2 Medicine Vernell Perez [address] [place] [address] Lab Laboratory Medicine Karin, 2 Adeline Gannon M.D., Ph.D. [address] [place] [phone] Lab Laboratory Medicine Karin, Olinda Adeline Gannon M.D., Ph.D. [address] [place] [address] [phone] Office Visit Transplant Karin, Olinda Adeline Gannon M.D., Ph.D. [address] [place] [phone] Appointment Radiology Matthew Jerome 2 YElizabeth.B.B.SLilian Moise [address] [place] [phone] Appointment Gastroenterology demian Silver 2 Hepatology Yue Burciaga M.D. [address] [place] [address] [phone] Office Visit Gastroenterology and Matthew Jerome 2 Hepatology Joshua RodriguezB.B.Lilian [place] [address] [place] [phone] Appointment Radiology Matthew Jerome 2 YElizabeth.B.B.SLilian Moise [address] [place] [phone] [email or web address] Matthew Cirrhos is Alcoholic (HCC) 2 Encounter Hepatology Elizabeth Rodriguez.B.B.SLilian Moise [address] [place] [phone] Anesthesia Event Gastroenterology and Rl, 2 Hepatology Ervin Burgos M.D. [address] [place] [phone] Surgery Gastroenterology and Mousa, Matthew ESOPHAG OGASTRODUODENOSCOPY 2 Hepatology YTyrell M.D. [address] [place] [phone] Scheduled Procedures Name Priority Associated Diagnoses Date/Time ESOPHAGOGASTRODUODENOSCOPY Cirrhosis Alc oholic (HCC) 03/20/2022 8:45 AM REINFORCING ROD LAYER Hypertension Portal (HCC) documented as of this encounter Visit Diagnoses Not on filedocumented in this encounter Care Teams Security Nurse Relationship Specialty Start Date End Date Elsewhere, Pcp PCP - General Family Medicine 03/10/20 11/30/21 Ervin Schroeder MD Referring Provider Family Medicine 03/24/[address] [place] [phone] documented as of this encounter
--- OUTSIDE RECORDS SUMMARY | 2022-02-10 09:40 | XMS_ITS | Encounter Summary ---
:1990 Author Organization [facility] Address [address] [place] [address] Care Team Providers Name Role Phone Elsewhere, Pcp Primary Care Provider Unavailable Reason for Visit Reason Comments Fever Fever during noc 100.4, Dr. Fish recommending eval for labs due to cirrhosis. Encounter Details Date Type Department Care Team Description 07/06/2021 Emergency [facility] Juan Dang Fever Of Unknown Origin Martin Holloway M.D. (Primary Dx) Emergency Department [address] [place] [phone] Social History Tobacco Use Types Packs/Day Years [...] you attend protestant or Patient refused 2021 yazdanism services? Do you belong to any clubs or No 02/10/2022 organizations such as protestant groups, unions, fraVanna's Vanity or athletic groups, or school groups? 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 documented as of this encounter Last Filed Vital Signs Vital Sign Reading Time Taken Comments Blood Pressure 95/50 07/06/2021 1:30 PM PARA MACHINE OPERATOR Pulse 87 07/06/2021 1:45 PM PARA MACHINE OPERATOR Temperature 37.1 ??C (98.8 ??F) 07/06/2021 1:45 PM PARA MACHINE OPERATOR Respiratory Rate 15 07/06/2021 1:45 PM PARA MACHINE OPERATOR Oxygen Saturation 98% 07/06/2021 1:45 PM PARA MACHINE OPERATOR Inhaled Oxygen Concentration - - Weight 55.1 kg (121 lb 7.6 oz) 07/06/2021 10:41 AM PARA MACHINE OPERATOR Height 157.5 cm (5' 2) 07/06/2021 10:41 AM PARA MACHINE OPERATOR Body Mass Index 22.22 07/06/2021 10:41 AM PARA MACHINE OPERATOR documented in this encounter Discharge Instructions Discharge Juan Forrester M.D. - 07/06/2021 1:21 PM CST As per Dr. Fish you may take Tylenol as needed for pain, please limit to less than 2,000 mg a day Return to ER if symptoms persist, worsen, or any concerns Please follow all verbal instructions given to you Please follow-up with your primary care doctor or dental assistant Please read all attached documents at discharge It was a pleasure taking care of you today. We hope you feel better soon MACHINE OPERATOR documented in this encounter Medications at Time [...] alcoholic liver cirrhosis referred to ED by dental assistant for subjective fever. Patient states she felt [...] Negative Bilirubin Moderate (*) pH 7.0 Specific [place] 1.020 Urobilinogen 1.0 White Blood Cells None [...] PCR Undetected Respiratory Syncytial Virus, PCR Undetected [id number], PCR Undetected Specimen Source Swab, Nasopharynx BACTERIA / INES CULTURE, BLOOD Narrative: Specimen Information: Specimen ID: [id number] Specimen Source: Blood, Peripheral Draw Specimen Comment: Specimen Source Site: Blood Specimen Collection Start Date: 07/06/2021 11:15 AM Specimen Received Date: 07/06/2021 11:30 AM Specimen ID: [id number] Specimen Source: Blood, Peripheral Draw Specimen Comment: Specimen Source Site: Blood Specimen Collection Start Date: 07/06/2021 11:15 AM Specimen Received Date: 07/06/2021 11:30 AM Specimen ID: [id number] Specimen Source: Blood, Peripheral Draw Specimen Comment: Specimen Source Site: Blood Specimen Collection Start Date: 07/06/2021 11:15 AM Specimen Received Date: 07/06/2021 11:30 AM BACTERIA / INES CULTURE, BLOOD Narrative: Specimen Information: Specimen ID: [id number] Specimen Source: Blood, Peripheral Draw Specimen Comment: Specimen Source Site: Blood Specimen Collection Start Date: 07/06/2021 11:27 AM Specimen Received Date: 07/06/2021 11:30 AM Specimen ID: [id number] Specimen Source: Blood, Peripheral Draw Specimen Comment: Specimen Source Site: Blood Specimen Collection Start Date: 07/06/2021 11:30 AM Specimen Received Date: 07/06/2021 11:30 AM Specimen ID: [id number] Specimen Source: Blood, Peripheral Draw Specimen Comment: [...] alcoholic liver cirrhosis referred to ED by dental assistant for subjective fever. Denies cough, shortness of [...] is/are normal. Juan Dang M.D. 07/08/21 0041 MACHINE OPERATOR documented in this encounter Plan of Treatment Upcoming Encounters Date Type Specialty Care Team Description Virtual Visit Transplant Mousa, Elizabeth May, MJules [address] [place] [phone] 2 Rain Reyes R.N. [address] [place] [phone] Telemedicine Transplant LinaFederico 2 Brigid noyola M.D. [address] [place] [phone] Office Visit [facility] Internal [facility], 2 Medicine Vernell Perez [address] [place] [phone] Lab Laboratory Medicine Karin, 2 Adeline Gannon M.D., Ph.D. [address] [place] [phone] Lab Laboratory Medicine Karin, 2 Adeline Gannon M.D., Ph.D. [address] [place] [phone] Office Visit Transplant Karin, 2 Adeline Gannon M.D., Ph.D. [address] [place] [phone] Appointment Radiology Matthew Jerome 2, M.B.B.SSuma, MJules [address] [place] [phone] Appointment Gastroenterology and [facility], 2 Hepatology Yue Burciaga M.D. [address] [place] [phone] Office Visit [facility] 2 Hepatology Tyrell Rodriguez M.D. [address] [place] [phone] Appointment Radiology [facility] 2 YTyrell, Lilian [address] [place] [phone] Hospital Gastroenterology [facility] Cirrhos is Alcoholic (HCC) 2 Encounter Hepatology Tyrell Rodriguez M.D. [address] [place] [phone] Anesthesia Event Gastroenterology and [facility], 2 Hepatology Ervin Burgos M.D. [address] [place] [phone] Surgery Gastroenterology and [facility] ESOPHAG OGASTRODUODENOSCOPY 2 Hepatology Tyrell Rodriguez M.D. [address] [place] [phone] Scheduled Procedures Name Priority Associated Diagnoses Date/Time ESOPHAGOGASTRODUODENOSCOPY Cirrhosis Alc oholic (HCC) 03/20/2022 8:45 AM PARA MACHINE OPERATOR Hypertension Portal (HCC) documented as of this encounter Procedures Procedure Name Priority Date/Time Associated Comments Diagnosis BACTERIAL CULTURE, STAT 07/06/2021 11:59 Resul ts for AEROBIC + SUSC, AM PARA MACHINE OPERATOR this procedu re URINE are in the results section. URINALYSIS WITH STAT 07/06/2021 11:54 Results for MICROSCOPIC AM PARA MACHINE OPERATOR this procedure are in the results section. BACTERIA / INES STAT 07/06/2021 11:27 Resul ts for CULTURE, BLOOD AM PARA MACHINE OPERATOR this procedur e are in the results section. LACTATE, B STAT 07/06/2021 11:21 Results for AM PARA MACHINE OPERATOR this procedure are in the results section. MORPHOLOGY STAT 07/06/2021 11:21 Results for EVALUATION AM PARA MACHINE OPERATOR this procedure are in the results section. CBC WITH STAT 07/06/2021 11:21 Results for DIFFERENTIAL, B AM PARA MACHINE OPERATOR this procedu re are in the results section. COMPREHENSIVE STAT 07/06/2021 11:21 Results fo r METABOLIC PANEL, S/P AM PARA MACHINE OPERATOR this pr ocedure are in the results section. BACTERIA / INES STAT 07/06/2021 11:15 Resul ts for CULTURE, BLOOD AM PARA MACHINE OPERATOR this procedur e are in the results section. DX CHEST PORTABLE 1 RAD - Semiurgent 07/06/2021 10:58 Results for VIEW (Fast; most ED AM PARA MACHINE OPERATOR this procedur e patients; some are in the inpatients) results section. SARS COV-2,INFLUENZA STAT 07/06/2021 10:51 Res ults for A/B,RSV,PCR, V AM PARA MACHINE OPERATOR this procedur e are in the results section. documented in this encounter Results Bacterial Culture, Aerobic + Susc, Urine (07/06/2021 11:59 AM PARA MACHINE OPERATOR) [facility] gist Method Time Signature Urine Culture No growth 07/07/2021 MKTO after 1 day 11:49 AM PARA MACHINE OPERATOR of incubation. Specimen Anatomical Collection Method Collection Time Receive d Time (Source) Location / / Volume Laterality Urine (Urine, 07/06/2021 11:59 07/06/2021 Midstream) AM PARA MACHINE OPERATOR 11:59 AM PARA MACHINE OPERATOR Comment: Specimen Source Site: Urine Juan Dang M.D. LAB MICROBIOLOGY - GENERAL O RDERABLES Performing Organization Address City/State/ZIP Code Phon e Number [facility]- [address] [place] [phone] [place] [address] System [address] (ABNORMAL) Urinalysis with Microscopic: Urine, Midstream (07/06/2021 11:54 AM PARA MACHINE OPERATOR) Analysis Performed At Path logist Time Signature Source Urine, Urine, 07/06/2021 MKTO Midstream 12:04 PM PARA MACHINE OPERATOR Clarity Clear Clear 07/06/2021 MKTO 12:04 PM PARA MACHINE OPERATOR Color Priscilla 07/06/2021 MKTO 12:04 PM PARA MACHINE OPERATOR Comment: ----REFERENCE VALUE---- Colorless Yellow Priscilla Blood Negative Negative 07/06/2021 12:04 PM PARA MACHINE OPERATOR MKTO Nitrite Negative Negative 07/06/2021 12:04 PM PARA MACHINE OPERATOR MK[place] Leukocyte Esterase Trace (A) Negative 07/06/2021 12:[address] [place] Protein Negative mg/dL 07/06/2021 12:04 PM PARA MACHINE OPERATOR MKTO Comment: ----REFERENCE VALUE---- Negative Trace Glucose Negative Negative mg/dL 07/06/2021 12:04 PM PARA MACHINE OPERATOR M KTO Ketone Negative Negative mg/dL 07/06/2021 12:04 PM PARA MACHINE OPERATOR M KTO Bilirubin Moderate (A) Negative 07/06/2021 12:04 PM PARA MACHINE OPERATOR MKT O pH 7.0 5.0 - 8.0 07/06/2021 12:04 PM PARA MACHINE OPERATOR MKTO Specific [place] 1.020 1.001 - 1.035 07/06/2021 12:04 PM PARA MACHINE OPERATOR MKTO Urobilinogen 1.0 0.2 - 1.0 mg/dL 07/06/2021 12:[address] [place] White Blood Cells None Seen /hpf 07/06/2021 12:08 PM CS T MKTO Comment: ----REFERENCE VALUE---- Males: 0-3 Females: 0-10 Unknown: 0-10 Red Blood Cells None Seen 0 - 2 /hpf 07/06/2021 12:08 PM PARA MACHINE OPERATOR MKTO Hyaline Casts 1-3 /lpf 07/06/2021 12:08 PM PARA MACHINE OPERATOR MK TO Specimen Anatomical Collection Method Collection Time Receive d Time (Source) Location / / Volume Laterality Urine (Urine, 07/06/2021 11:54 07/06/2021 Midstream) AM PARA MACHINE OPERATOR 11:59 AM PARA MACHINE OPERATOR Juan Dang M.D. LAB URINE ORDERABLES Performing Organization Address City/State/ZIP Code Phon e Number [facility]- [address] [place] [phone] [place] [address] System in [address] Bacteria / Ines Culture, Blood #2 (07/06/2021 11:27 AM PARA MACHINE OPERATOR) [facility] Method Time Signature Bacteria/Adriana No growth 07/11/2021 MKTO da Culture, after 5 12:05 PM PARA MACHINE OPERATOR Blood day/s of incubation. Specimen (Source) Anatomical Collection Method Collection Time Re ceived Time Location / / Volume Laterality Blood (Blood, 07/06/2021 11:27 07/06/2021 Peripheral Draw) AM PARA MACHINE OPERATOR 11:30 AM CS T Comment: Specimen Source Site: Blood Juan Dang M.D. LAB MICROBIOLOGY - GENERAL O RDERABLES Performing Organization Address City/[facility] Phon e Number [facility]- [address] [place] [phone] [place] [address] (ABNORMAL) Morphology Evaluation (07/06/2021 11:21 AM PARA MACHINE OPERATOR) Patholo gist Method Time Signature RBC Morphology See Specific 07/06/2021 MKTO Findings 12:08 PM PARA MACHINE OPERATOR PLT Estimate Decreased (A) Adequate 07/06/2021 MKTO 12:08 PM PARA MACHINE OPERATOR Acanthocytes Marked (A) 07/06/2021 MKTO 12:08 PM PARA MACHINE OPERATOR Polychromasia Slight (A) Not Seen 07/06/2021 MKTO 12:08 PM PARA MACHINE OPERATOR Specimen Anatomical Collection Method Collection Time Receive d Time (Source) Location / / Volume Laterality Blood 07/06/2021 11:21 07/06/2021 AM PARA MACHINE OPERATOR 11:30 AM PARA MACHINE OPERATOR Juan Dang M.D. LAB BLOOD ADD-ON Performing Organization Address [facility] Phon e Number [facility]- [address] [place] [phone] [place] [address] (ABNORMAL) Lactate, B (07/06/2021 11:21 AM PARA MACHINE OPERATOR) P athologist Signature Lactate, B 2.4 (H) 0.5 - 2.2 07/06/2021 MKTO mmol/L 11:33 AM PARA MACHINE OPERATOR Specimen Anatomical Collection Method Collection Time Receive d Time (Source) Location / / Volume Laterality Blood 07/06/2021 11:21 07/06/2021 AM PARA MACHINE OPERATOR 11:30 AM PARA MACHINE OPERATOR Juan Dang M.D. LAB BLOOD NON ADD-ON Performing Organization Address City/State/ZIP Code Phon e Number [facility]- [facility] [place] [address] [place] [address] System in [place] [address] [facility] (ABNORMAL) Comprehensive Metabolic Panel (07/06/2021 11:21 AM PARA MACHINE OPERATOR) Analysis Performed At Patho logist Time Signature Potassium, P 4.1 3.6 - 5.2 07/06/2021 MKTO mmol/L 11:55 AM PARA MACHINE OPERATOR Sodium, P 133 (L) 135 - 145 07/06/2021 MKTO mmol/L 11:55 AM PARA MACHINE OPERATOR Chloride, P 100 98 - 107 07/06/2021 MK[place] mmol/L 11:55 AM PARA MACHINE OPERATOR Bicarbonate, P 21 (L) 22 - 29 07/06/2021 MK[place] mmol/L 11:55 AM PARA MACHINE OPERATOR Anion Gap, P 12 7 - 15 07/06/2021 MKTO 11:55 AM PARA MACHINE OPERATOR BUN (Blood Urea 5 (L) 6 - 21 07/06/2021 MKTO Nitrogen), P mg/dL 11:55 AM PARA MACHINE OPERATOR Creatinine 0.55 (L) 0.59 - 07/06/2021 MKTO 1.04 mg/dL 11:55 AM PARA MACHINE OPERATOR eGFR-Black/Afri >90 >=60 07/06/2021 MKTO can Naur[place] mL/min/BSA 11:55 AM PARA MACHINE OPERATOR Comment: ----ADDITIONAL INFORMATION---- Estimated GFR calculated using the 2009 CKD_EPI creatinine equation. eGFR Non-Black/ >90 >=60 mL/min/BSA 07/06/2021 11:55 AM PARA MACHINE OPERATOR MKTO Comment: ----ADDITIONAL INFORMATION---- Estimated GFR calculated using the 2009 CKD_EPI creatinine equation. Calcium, Total, P 9.2 8.6 - 10.0 mg/dL 07/06/2021 11:5 5 AM MKTO PARA MACHINE OPERATOR Glucose, P 97 70 - 140 mg/dL 07/06/2021 11:55 AM MKTO PARA MACHINE OPERATOR Protein, Total, P 5.8 (L) 6.3 - 7.9 g/dL 07/06/2021 11:55 AM MKTO PARA MACHINE OPERATOR Albumin, P 3.5 3.5 - 5.0 g/dL 07/06/2021 11:55 AM MKTO PARA MACHINE OPERATOR Aspartate Aminotransferase 71 (H) 8 - 43 U/L 07/06/2021 1 1:55 AM MKTO (AST), P PARA MACHINE OPERATOR Alkaline Phosphatase, P 173 (H) 35 - 104 U/L 07/06/2021 11 :55 AM MKTO PARA MACHINE OPERATOR Alanine Aminotransferase 26 7 - 45 U/L 07/06/2021 11: 55 AM MKTO (ALT), P PARA MACHINE OPERATOR Bilirubin, Total, P 7.0 (H) <=1.2 mg/dL 07/06/2021 11:55 A M MKTO PARA MACHINE OPERATOR Specimen Anatomical Collection Method Collection Time Receive d Time (Source) Location / / Volume Laterality Blood (Blood, 07/06/2021 11:21 07/06/2021 Venous) AM PARA MACHINE OPERATOR 11:30 AM PARA MACHINE OPERATOR Juan Dang M.D. LAB BLOOD ADD-ON Performing Organization Address City/State/ZIP Code Phon e Number [facility]- [address] [place] [phone] [place] [place] [address] [place] [address] System in [address] (ABNORMAL) CBC with Differential, Blood (07/06/2021 11:21 AM PARA MACHINE OPERATOR) [facility] Method Time Signature Hemoglobin 7.3 (L) 11.6 - 07/06/2021 MKTO 15.0 g/dL 12:08 PM PARA MACHINE OPERATOR Hematocrit 22.1 (L) 35.5 - 07/06/2021 MKTO 44.9 % 12:08 PM PARA MACHINE OPERATOR Erythrocytes 2.02 (L) 3.92 - 07/06/2021 MKTO 5.13 12:08 PM PARA MACHINE OPERATOR x10(12)/L MCV 109.4 (H) 78.2 - 07/06/2021 MKTO 97.9 fL 12:08 PM PARA MACHINE OPERATOR RBC Distrib Width 13.6 12.2 - 07/06/2021 MKTO 16.1 % 12:08 PM PARA MACHINE OPERATOR Platelet Count 66 (L) 157 - 371 07/06/2021 MKTO x10(9)/L 12:08 PM PARA MACHINE OPERATOR Leukocytes 7.7 3.4 - 9.6 07/06/2021 MKTO x10(9)/L 12:08 PM PARA MACHINE OPERATOR Neutrophils 5.72 1.56 - 07/06/2021 MKTO 6.45 12:08 PM PARA MACHINE OPERATOR x10(9)/L Lymphocytes 1.14 0.95 - 07/06/2021 MKTO 3.07 12:08 PM PARA MACHINE OPERATOR x10(9)/L Monocytes 0.73 0.26 - 07/06/2021 MKTO 0.81 12:08 PM PARA MACHINE OPERATOR x10(9)/L Eosinophils 0.08 0.03 - 07/06/2021 MKTO 0.48 12:08 PM PARA MACHINE OPERATOR x10(9)/L Basophils 0.05 0.01 - 07/06/2021 MKTO 0.08 12:08 PM PARA MACHINE OPERATOR x10(9)/L Specimen Anatomical Collection Method Collection Time Receive d Time (Source) Location / / Volume Laterality Blood (Blood, 07/06/2021 11:21 07/06/2021 Venous) AM PARA MACHINE OPERATOR 11:30 AM PARA MACHINE OPERATOR Juan Dang M.D. LAB BLOOD ADD-ON Performing Organization Address [facility] Phon e Number [facility]- [address] [place] [address] Bacteria / Ines Culture, Blood #1 (07/06/2021 11:15 AM PARA MACHINE OPERATOR) [facility] gist Method Time Signature Bacteria/Adriana No growth 07/11/2021 MKTO da Culture, after 5 12:05 PM PARA MACHINE OPERATOR Blood day/s of incubation. Specimen (Source) Anatomical Collection Method Collection Time Re ceived Time Location / / Volume Laterality Blood (Blood, 07/06/2021 11:15 07/06/2021 Peripheral Draw) AM PARA MACHINE OPERATOR 11:30 AM CS T Comment: Specimen Source Site: Blood Juan Dang M.D. LAB MICROBIOLOGY - GENERAL O RDERABLES Performing Organization Address [facility] Phon e Number [facility]- [address] [place] [phone] [address] [place], [place] [phone] [place] [address] DX Chest Portable 1 View (07/06/2021 10:58 AM PARA MACHINE OPERATOR) Anatomical Region Laterality Modality Chest, Thoracic RST LOS, Thoracic ARZ LOS, Thoracic N/A Digital Radiography FLA LOS Specimen (Source) Anatomical Collection Method Collection Time Re ceived Time Location / / Volume Laterality 07/06/2021 11:00 AM PARA MACHINE OPERATOR Impressions 07/06/2021 11:07 AM PARA MACHINE OPERATOR No acute radiographic abnormalities are demonstrated. Narrative 07/06/2021 11:07 AM PARA MACHINE OPERATOR EXAM: DX CHEST PORTABLE 1 VIEW COMPARISON: [...] Juan Dang M.D. IMG DIAGNOSTIC IMAGING PROCE [facility] SARS CoV-2, Influenza A/B, RSV, PCR Symptomatic (07/06/2021 10:51 AM PARA MACHINE OPERATOR) [facility] Method Time Signature Influenza A, Undetected Undetected 07/06/2021 MKTO PCR 11:34 AM PARA MACHINE OPERATOR Comment: Influenza A viral RNA absent. Influenza B, PCR Undetected Undetected 07/06/2021 11:[address] MKTO Comment: Influenza B viral RNA absent. Respiratory Syncytial Virus, Undetected Undetected 022 11:34 AM PARA MACHINE OPERATOR MKTO PCR Comment: RSV RNA absent. [id number]-[id number], PCR Undetected Undetected 07/06/2021 11: 34 AM PARA MACHINE OPERATOR MKTO Comment: SARS-CoV-2 RNA absent. ?? ----ADDITIONAL INFORMATION---- This RT-PCR test using the Xpert Xpress SARS-CoV-2/Flu/RSV assay ([employer] performed on the Patient [employer] DX systems has received Emergency Use Authorization (EU A) by the U.S. Food and Drug Administration. Performanc e characteristics were verified by [facility] inic in a manner consistent with CLIA requirements . Fact sheets for this Emergency Use Autho rization (EUA) assay can be found at the following link s: For Healthcare Providers: https://www.fda.gov/media/638811/downloa d For Patients: https://www.fda.gov/media/047465/downloa d Specimen Source Swab, Nasopharynx 07/06/2021 10:55 AM PARA MACHINE OPERATOR [facility] Specimen Anatomical Collection Method Collection Time Receive d Time (Source) Location / / Volume Laterality Varies 07/06/2021 10:51 07/06/2021 (Nasopharynx) AM PARA MACHINE OPERATOR 10:55 AM PARA MACHINE OPERATOR Juan Dang M.D. LAB MICROBIOLOGY - GENERAL O RDERABLES Performing Organization Address City/State/ZIP Code Phon e Number [facility]- [address] [place] [address] [place] [address] System [address] documented in this encounter Visit Diagnoses Diagnosis Fever Of Unknown Origin - Primary Cirrhosis Alcoholic (HCC) Cirrhosis Alcoholic (HCC) Hypertension Portal (HCC) documented in this encounter Administered Medications Inactive Administered Medications - up to 3 most recent administrations Medication Order MAR Action Action Date Dose Rate Site fentaNYL injection 50 mcg Given 07/06/2021 11:32 AM PARA MACHINE OPERATOR 50 mcg (SUBLIMAZE) 50 mcg, intravenous, Once, [...] Recently Administered Medications Times are shown in PARA MACHINE OPERATOR. Scheduled Medication Order 07/04/2021 07/05/2021 07/06/2021 fentaNYL injection 50 mcg (SUBLIMAZE) (COMPLETED) 1132 (Given - Provider: Roseline Solorzano R.N.) 50 mcg, intravenous, Once, On 07/06/21 at 1110, For 1 dose sodium chloride 0.9 % injection 3 mL 3 mL, intravenous, Every 12 hours schedu led, First dose on Palmer 07/06/21 at 2100, Peripheral Intravenous Catheter and Rapid Infusion Catheter, when no infusion to maintain patency PRN Medication Order 07/04/2021 07/05/2021 07/06/2021 sodium chloride 0.9 % injection 10 mL 10 mL, intravenous, As needed, line care , Starting on Palmer 07/06/21 at 1044, Peripheral Intravenous Catheter and Rapid Infusion Catheter, prior to blood sampling, post blood transfusion or post blood sampling sodium chloride 0.9 % injection 3 mL 3 mL, intravenous, As needed, line care, Starting on Palmer 07/06/21 at 1044, Prior to and following infusion and between multiple consecutive infusions: sodium chloride 0.9 % injection documented in this encounter Additional Health Concerns Infection Onset Date Last Indicated Resolved Time COVID19 Pending 07/06/2021 07/06/2021 07/06/2021 11:34 AM PARA MACHINE OPERATOR documented as of this encounter Care Teams Floor Layer Apprentice Relationship Specialty Start Date End Date Elsewhere, Pcp PCP - General Family Medicine 03/10/20 11/30/21 Ervin Schroeder MD Referring Provider Family Medicine 03/24/[address] [place] [address] [phone] documented as of this encounter
--- OUTSIDE RECORDS SUMMARY | 2022-02-10 09:40 | XMS_ITS | Encounter Summary ---
:1990 Author Organization [facility] Address [address] [place] [address] Care Team Providers Name Role Phone Elsewhere, Pcp Primary Care Provider Unavailable Encounter Details Date Type Department Care Team Description 07/25/2021 Clinical Communication Department of Ines Warren, Gastroenterology in [address] [place] [place] [phone] Social History Tobacco Use Types Packs/Day Years [...] you attend uatsdin or Patient refused 2021 mandaeism services? 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 - 07/25/2021 2:57 PM CDT Patient called back again. Patient states that she is going to call 911 for an ambulance. Patient states that her abdominal pain is bad and she is becoming increasing confused. Patient [facility] to [facility] for evaluation. Told patient to request [place] Location. Patient is home alone as her mother and fiance are [facility] Telephone Encounter - Kerry Naranjo APRN, C.N.P., M.S.N. - 07/25/2021 2:41 PM CDT APOORVAI In case you get a call on this [facility] clinic cirrhotic. Payne Telephone Encounter - [...] Transplant Matthew Jerome M .B.B.S., M.D. [address] [place] [address] 2 Rain Reyes R.N. [address] [place] [phone] Telemedicine Transplant LinaDemarcus 2 Brigid noyola M.D. [address] [place] [phone] Office Visit [facility], 2 Medicine Vernell Perez [address] [place] [address] [phone] Lab Laboratory Medicine Karin, Olinda Gannon M.D., Ph.D. [address] [place] [phone] Lab Laboratory Medicine Olinda Frazier M.D., Ph.D. [address] [place] [phone] Office Visit Transplant Olinda Frazier M.D., Ph.D. [address] [place] [address] [phone] Appointment Radiology Matthew Jerome 2 Tyrell Rodriguez M.D. [address] [place] [phone] Appointment Gastroenterology and Adrianne, 2 Hepatology Yue Burciaga M.D. [address] [place] [phone] Office Visit Gastroenterology and Queenie Matthew 2 Hepatology Tyrell Rodriguez M.D. [address] [place] [phone] Appointment Radiology Matthew Jerome 2 Tyrell Rodriguez M.D. [address] [place] [phone] Hospital Gastroenterology and Luischantell Matthew Cirrhos is Alcoholic (HCC) 2 Encounter Hepatology Tyrell Rodriguez M.D. [address] [place] [phone] Anesthesia Event Gastroenterology and Rl, 2 Hepatology Ervin Burgos M.D. [address] [place] [address] [phone] Surgery Gastroenterology and LuisNew abdular ESOPHAG OGASTRODUODENOSCOPY 2 Hepatology Tyrell Rodriguez M.D. [address] [place] [phone] Scheduled Procedures Name Priority Associated Diagnoses Date/Time ESOPHAGOGASTRODUODENOSCOPY Cirrhosis Alc oholic (HCC) 03/20/2022 8:45 AM LINE STAKER Hypertension Portal (HCC) documented as of this encounter Visit Diagnoses Not on filedocumented in this encounter Care Teams Mechanical Engineering Technologist Relationship Specialty Start Date End Date Elsewhere, Pcp PCP - General Family Medicine 03/10/20 11/30/21 Ervin Schroeder MD Referring Provider Family Medicine 03/24/[address] [place] [phone] documented as of this encounter
--- OUTSIDE RECORDS SUMMARY | 2022-02-10 09:40 | XMS_ITS | Encounter Summary ---
:1990 Author Organization [facility] Address [address] [place] [address] Care Team Providers Name Role Phone Elsewhere, Pcp Primary Care Provider Unavailable Encounter Details Date Type Department Care Team Description 07/15/2021 Clinical Communication Department of Felicita Spicer Gastroenterology in [place], [place] [phone] [place] [address] ([facility]) [place] [phone] Social History Tobacco Use Types Packs/Day [...] you attend mandaen or Patient refused 2021 buddhism services? 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 Business Department Chair informed her that we were aware of the labs from outside facilities and that ad copy writer had asked Kerry to review these outside labs last week and had not heard back regarding any recommendations. Informed her I would follow up with Kerry and get back to her. Business Department Chair discussed patient with Kerry Naranjo NP. Since [...] best that they are done at a [place] [facility] so that Kerry can be alerted [...] not received a blood transfusion at [facility]. Informed her that once the lab results were back Kerry would be able to best make a plan of care for her. Informed her she should keep her appointment with Kerry on Friday 07/21. documented in this encounter Plan of Treatment Upcoming Encounters Date Type Specialty Care Team Description Virtual Visit Transplant Matthew Jerome M .B.B.S., M.D. [address] [place] [address] [phone] 2 Rain Reyes R.N. [address] [place] [address] [phone] Telemedicine Transplant LinaDemarcus 2 Brigid noyola M.D. [address] [place] [phone] Office Visit [facility] Internal Carlos, 2 Solitario Perez P.A.-C. [address] [place] [phone] Lab Laboratory Medicine Karin, 2 Adeline Gannon M.D., Ph.D. [address] [place] [address] [phone] Lab Laboratory Medicine Olinda Frazier M.D., Ph.D. [address] [place] [address] [phone] Office Visit Transplant Karin, 2 Adeline Gannon M.D., Ph.D. [address] [place] [phone] Appointment Radiology Matthew Jerome 2 YJoshuaB.B.Kath, Lilian [address] [place] [phone] Appointment Gastroenterology and Adrianne, 2 Hepatology Yue Burciaga M.D. [address] [place] [phone] Office Visit Gastroenterology and Queenie Matthew 2 Hepatology Joshua RodriguezB.B.Lilian Stock[place] [address] [place] [phone] Appointment Radiology Matthew Jerome 2 Y MSumaB.B.Kath, Lilian [address] [place] [phone] Hospital [facility] Cirrhos is Alcoholic (HCC) 2 Encounter Hepatology Joshua RodriguezB.B.Lilian [place] [address] [place] [phone] Anesthesia Event Gastroenterology and Rl, 2 Hepatology Ervin Burgos M.D. [address] [place] [address] [phone] Surgery Gastroenterology and Queenie Matthew ESOPHAG OGASTRODUODENOSCOPY 2 Hepatology Joshua RodriguezB.B.Lilian [place] [address] [place], [place] [address], [place] [address] Scheduled Procedures Name Priority Associated Diagnoses Date/Time ESOPHAGOGASTRODUODENOSCOPY Cirrhosis Alc oholic (HCC) 03/20/2022 8:45 AM SHIP BOAT OR BARGE MATE Hypertension Portal (HCC) documented as of this [...] CDT 12:57 PM CDT Kerry Naranjo APRN, C.N.P., M.S.N. LAB BLOOD ADD-ON Performing Organization Address City/State/ZIP Code Phon e Number [facility]- [address] [place] [address] [facility] [place] [address] System in [place] [address] [facility] Basic Metabolic Panel (07/15/2021 10:49 [...] CDT eGFR-Black/Afric >90 >=60 07/15/2021 OW[place] an [place] mL/min/BSA 1:52 PM CDT Comment: ----ADDITIONAL INFORMATION---- [...] CDT 12:57 PM CDT Kerry Naranjo APRN, C.N.P., M.S.N. LAB BLOOD ADD-ON Performing Organization Address City/State/ZIP Code Phon e Number [facility]- [address] [place] [address] [facility] [place] [address] System in [place] [address] (ABNORMAL) CBC with Differential, Blood (07/15/2021 10:49 AM CDT) [facility] gist Method Time Signature Hemoglobin 8.2 (L) [...] CDT 10:49 AM CDT Kerry Naranjo APRN, C.N.P., M.S.N. LAB BLOOD ADD-ON Performing Organization Address City/State/ZIP Code Phon e Number [facility]- [address] [place] [address] [facility] [place] [address] System in [address] documented in this encounter Visit Diagnoses Diagnosis Cirrhosis Alcoholic (HCC) - Primary Cirrhosis Alcoholic (HCC) Cirrhosis Alcoholic (HCC) Hypertension Portal (HCC) documented in this encounter Additional Health Concerns Infection Onset Date Last Indicated Resolved Time COVID19 Pending 07/25/2021 07/25/2021 07/25/2021 10:07 PM CDT documented as of this encounter Care Teams Medical Practice Manager Relationship Specialty Start Date End Date Elsewhere, Pcp PCP - General Family Medicine 03/10/20 11/30/21 Ervin Schroeder MD Referring Provider Family Medicine 03/24/[address] [place] [address] documented as of this encounter
--- OUTSIDE RECORDS SUMMARY | 2022-02-10 09:40 | XMS_ITS | Encounter Summary ---
:1990 Author Organization [facility] Address [address] [place] [address] Care Team Providers Name Role Phone Elsewhere, Pcp Primary Care Provider Unavailable Encounter Details Date Type Department Care Team Description 07/08/2021 Clinical Communication Department of Kerry Naranjo Gastroenterology in [place], [place] C.N.P., M.S.N. 1025 [facility] 1025 [place] [address] [place], [place] [phone] Social History Tobacco Use Types Packs/Day [...] attend roman catholic or Patient refused 2021 moravian services? 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 [address] [place] [phone] Telemedicine Transplant LinaDemarcus 2 Brigid noyola M.D. [address] [place] [phone] Office Visit Community Internal Neda, 2 Solitario Perez P.A.-C. [address] [place] [address] Lab Laboratory Medicine Karin, 2 Adeline Gannon M.D., Ph.D. [address] [place] [address] [phone] Lab Laboratory Medicine Olinda Frazier M.D., Ph.D. [address] [place] [phone] Office Visit Transplant Karin, Olinda Gannon M.D., Ph.D. [address] [place] [phone] Appointment Radiology Matthew Jerome 2 YJoshuaB.B.SLilian Moise [address] [place] [address] [phone] Appointment Gastroenterology and Adrianne 2 Hepatology Yue Burciaga M.D. [address] [place] [phone] Office Visit Gastroenterology and Matthew Jerome 2 Hepatology Joshua RodriguezB.B.Lilian Stock[place] [address] [place] [phone] Appointment Radiology Matthew Jerome 2 YElizabeth.B.B.Lilian [place] [address] [place] [address] [phone] Hospital Gastroenterology and Matthew Jerome Cirrhos is Alcoholic (HCC) 2 Encounter Hepatology Joshua RodriguezB.B.SLilian Moise [address] [place] [phone] Anesthesia Event Gastroenterology and Rl, 2 Hepatology Ervin Burgos M.D. [address] [place] [phone] Surgery Gastroenterology and Queenie Matthew ESOPHAG OGASTRODUODENOSCOPY 2 Hepatology Tyrell Rodriguez, Lilian [address] [place] [phone] Scheduled Procedures Name Priority Associated Diagnoses Date/Time ESOPHAGOGASTRODUODENOSCOPY Cirrhosis Alc oholic (HCC) 03/20/2022 8:45 AM MONOTYPE OPERATOR Hypertension Portal (HCC) documented as of this encounter Visit Diagnoses Not on filedocumented in this encounter Care Teams Customer Service Rep Relationship Specialty Start Date End Date Elsewhere, Pcp PCP - General Family Medicine 03/10/20 11/30/21 Ervin Schroeder MD Referring Provider Family Medicine 03/24/[address] [place] [address] documented as of this encounter
--- OUTSIDE RECORDS SUMMARY | 2022-02-10 09:40 | XMS_ITS | Encounter Summary ---
:1990 Author Organization [facility] Address [address] [place] [address] Care Team Providers Name Role Phone Elsewhere, Pcp Primary Care Provider Unavailable Encounter Details Date Type Department Care Team Description 07/15/2021 Hospital Encounter Department of Kerry Naranjo is Alcoholic Laboratory Medicine S, SLIP INJECTOR AND APPLICATOR, (HCC) in [place], C.N.PSuma, M.S.N[address] [place] [phone] Social History Tobacco Use Types Packs/Day Years [...] you attend restorationism or Patient refused 2021 spiritism services? 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 [address] [place] [phone] Telemedicine Transplant LinaFederico 2 Brigid noyola M.D. [address] [place] [phone] Office Visit Community Internal [facility], 2 Medicine Vernell Perez [address] [place] [phone] Lab Laboratory Medicine Karin, 2 Adeline Gannon M.D., Ph.D. [address] [place] [phone] Lab Laboratory Medicine Karin, 2 Adeline Gannon M.D., Ph.D. [address] [place] [phone] Office Visit Transplant Karin, 2 Adeline Gannon M.D., Ph.D. [address] [place] [phone] Appointment Radiology Matthew Jerome 2, M.B.B.S., Lilian [address] [place] [phone] Appointment Gastroenterology and Adrianne, 2 Hepatology Yue Burciaga M.D. [address] [place] [phone] Office Visit Gastroenterology and [facility] 2 Hepatology Tyrell Rodriguez, Lilian [address] [place] [phone] Appointment Radiology [facility] 2 YTyrell M.D. [address] [place] [phone] Hospital Gastroenterology and [facility] Cirrhos is Alcoholic (HCC) 2 Encounter Hepatology Tyrell Rodriguez M.D. [address] [place] [phone] Anesthesia Event Gastroenterology and Rl, 2 Hepatology Ervin Burgos M.D. [address] [place] [phone] Surgery Gastroenterology and [facility] ESOPHAG OGASTRODUODENOSCOPY 2 Hepatology Tyrell Rodriguez M.D. [address] [place] [phone] Scheduled Procedures Name Priority Associated Diagnoses Date/Time ESOPHAGOGASTRODUODENOSCOPY Cirrhosis Alc oholic (HCC) 03/20/2022 8:45 AM SPEEDER FRAME TENDER Hypertension Portal (HCC) documented as of [...] AM CDT AM CDT Kerry Naranjo APRN, C.N.P., M.S.N. LAB BLOOD NON ADD- ON Performing Organization Address City/State/[facility] Code Phon e Number [facility] - [address] [place] [address] 05 [facility] [place] [address] Laboratories-[facility] [place] 200 [facility] (ABNORMAL) Hepatic Function Panel (07/15/2021 10:49 [...] Phon e Number [facility]- [address] [place] [address] [facility] [place] [address] System in [place] [address] Basic Metabolic Panel (07/15/2021 [...] CDT eGFR-Black/Afric >90 >=60 07/15/2021 OW[place] an Citizen Of [place] mL/min/BSA 1:52 PM CDT Comment: ----ADDITIONAL INFORMATION---- [...] Phon e Number [facility]- [address] [place] [address] [facility] [place] [address] System in [place] [address] (ABNORMAL) CBC with Differential, Blood (07/15/2021 10:49 AM CDT) [facility] Method Time Signature Hemoglobin 8.2 (L) [...] Organization Address City/State/ZIP Code Phon e Number [address] [place] [address] [facility] [place] [address] System [address] documented in this encounter Visit Diagnoses Diagnosis Cirrhosis Alcoholic (HCC) Cirrhosis Alcoholic (HCC) Cirrhosis Alcoholic (HCC) Hypertension Portal (HCC) documented in this encounter Care Teams Home Health Outreach Coordinator Relationship Specialty Start Date End Date Elsewhere, Pcp PCP - General Family Medicine 03/10/20 11/30/21 Ervin Schroeder MD Referring Provider Family Medicine 03/24/21 [address] [facility] [place] [address] documented as of this encounter
--- OUTSIDE RECORDS SUMMARY | 2022-02-10 09:40 | XMS_ITS | Encounter Summary ---
:1990 Author Organization [facility] Address [address] [place] [address] Care Team Providers Name Role Phone Elsewhere, Pcp Primary Care Provider Unavailable Reason for Visit Reason Comments Altered Mental Status Urinary Tract Infection Encounter Details Date Type Department Care Team Description 07/19/2021 Nurse Triage Department of Catia Fagan [facility] Medicine, [place] R, R.N. Status; Urinary Tract Clinic, in [place], [address] Infection [place], [place] [address] [place] [address] [place] [address] [phone] Social History Tobacco Use Types Packs/Day Years [...] you attend yarsanism or Patient refused 2021 lutheran services? Do [...] at Date Recorded Female 04/12/2021 7:39 PM WEIGHER ALLOY documented as of this encounter Miscellaneous Notes [...] got home from the Emergency Room in [place], patient is wondering if she can talk [...] Transplant Matthew Jerome M .B.B.S., Lilian [address] [place] [address] 2 Rain Reyes R.N. [address] [place] [phone] Telemedicine Transplant [facility] 2 Brigid noyola M.D. [address] [place] [phone] Office Visit Community Internal [facility], 2 Medicine Vernell Perez [address] [place] [phone] Lab Laboratory Medicine Karin, 2 Adeline Gannon M.D., Ph.D. [address] [place] [phone] Lab Laboratory Medicine Karin, 2 Adeline Gannon M.D., Ph.D. [address] [place] [phone] Office Visit Transplant Karin, 2 Adeline Gannon M.D., Ph.D. [address] [place] [phone] Appointment Radiology Matthew Jerome 2, M.B.B.S., Lilian [address] [place] [phone] Appointment Gastroenterology and Adrianne, 2 Hepatology Yue Burciaga M.D. [address] [place] [address], [place] [phone] Office Visit Gastroenterology and Matthew Jerome 2 Hepatology Tyrell Rodriguez M.D. [address] [place] [phone] Appointment Radiology LuisNew abdular 2 Tyrell Rodriguez M.D. [address] [place] [phone] [facility] Gastroenterology and Mschantell Matthew Cirrhos is Alcoholic (HCC) 2 Encounter Hepatology Tyrell Rodriguez M.D. [address] [place] [phone] Anesthesia Event Gastroenterology and Rl, 2 Hepatology Ervin Burgos M.D. [address] [place] [phone] Surgery Gastroenterology and Matthew Jerome ESOPHAG OGASTRODUODENOSCOPY 2 Hepatology Tyrell Rodriguez M.D. [address] [place] [phone] Scheduled Procedures Name Priority Associated Diagnoses Date/Time ESOPHAGOGASTRODUODENOSCOPY Cirrhosis Alc oholic (HCC) 03/20/2022 8:45 AM WEIGHER ALLOY Hypertension Portal (HCC) documented as of this encounter Visit Diagnoses Not on filedocumented in this encounter Care Teams Bungy Jump Master Relationship Specialty Start Date End Date Elsewhere, Pcp PCP - General Family Medicine 03/10/20 11/30/21 Ervin Schroeder MD Referring Provider Family Medicine 03/24/[address] [place] [phone] documented as of this encounter
--- OUTSIDE RECORDS SUMMARY | 2022-02-10 09:40 | XMS_ITS | Encounter Summary ---
:1990 Author Organization [facility] Address [address] [place] [address] Care Team Providers Name Role Phone Elsewhere, Pcp Primary Care Provider Unavailable Reason for Visit Reason Comments Epistaxis (Nose Bleed) Encounter Details Date Type Department Care Team Description 07/25/2021 Nurse Triage Department of Joshua Resendiz (Nose Medicine, [facility], RSumaNSuma Bleed) [facility], in [place], [place] [address] [phone] Social History Tobacco Use Types Packs/Day Years [...] you attend adventist or Patient refused 2021 congregation services? 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 Call your doctor (or TELEVISION PROGRAM DIRECTOR/PA) when the office opens and make an [...] [2] direct pressure applied correctly Protocols used: [id number] documented in this encounter Plan of Treatment Upcoming Encounters Date Type Specialty Care Team Description Virtual Visit Transplant Matthew Jerome M .B.B.S., MJules [address] [place] [phone] 2 Rain Reyes R.N. [address] [place] [phone] [facility]medicine [facility] 2 Brigid noyola M.D. [address] [place] [phone] Office Visit Community Internal Neda, 2 Medicine Vernell Perez [address] [place] [address] Lab Laboratory Medicine Karin, 2 Adeline Gannon M.D., Ph.D. [address] [place] [phone] Lab Laboratory Medicine KarinOlinda Adeline Gannon M.D., Ph.D. [address] [place] [address] [phone] Office Visit Transplant Karin, Olinda Adeline Gannon M.D., Ph.D. [address] [place] [address] [phone] Appointment Radiology Sdchantell Matthew 2 Y, M.B.B.SSuma, Lilian [address] [place] [phone] Appointment Gastroenterology demian Silver, 2 Hepatology Yue Burciaga M.D. [address] [place] [address] [phone] Office Visit Gastroenterology and Queenie Matthew 2 Hepatology Jennifer M.B.B.SLilian Moise [address] [place] [phone] Appointment Radiology Luischantell Matthew 2 Y M.B.B.SLilian Moise [address] [place] [phone] [facility] Gastroenterology and [facility] Cirrhos is Alcoholic (HCC) 2 Encounter Hepatology Jennifer M.B.B.SLilian Moise [address] [place] [phone] Anesthesia Event Gastroenterology and Rl, 2 Hepatology Ervin Burgos M.D. [address] [place] [phone] Surgery Gastroenterology and Mousa, Matthew ESOPHAG OGASTRODUODENOSCOPY 2 Hepatology Tyrell Rodriguez M.D. [address] [place] [phone] Scheduled Procedures Name Priority Associated Diagnoses Date/Time ESOPHAGOGASTRODUODENOSCOPY Cirrhosis Alc oholic (HCC) 03/20/2022 8:45 AM GATE SERVICES SUPERVISOR Hypertension Portal (HCC) documented as of this encounter Visit Diagnoses Not on filedocumented in this encounter Care Teams Communications Equipment Installer Relationship Specialty Start Date End Date Elsewhere, Pcp PCP - General Family Medicine 03/10/20 11/30/21 Ervin Schroeder MD Referring Provider Family Medicine 03/24/[address] [place] [phone] documented as of this encounter
--- OUTSIDE RECORDS SUMMARY | 2022-02-10 09:40 | XMS_ITS | Encounter Summary ---
:1990 Author Organization [facility] Address [address] [place] [address] Care Team Providers Name Role Phone Elsewhere, Pcp Primary Care Provider Unavailable Encounter Details Date Type Department Care Team Description 07/18/2021 Nurse Triage Department of Samia Boyd ch, R.NSuma Medicine, [facility], in [address] [place], [place] [address] [place] [phone] [place] [address] [phone] Social History Tobacco Use Types Packs/Day Years [...] you attend congregation or Patient refused 2021 pentecostalism services? 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 - 07/18/2021 10:48 PM CDT Chief Complaint / Reason for Call Patient is a 31 y.o. female calling regarding No chief complaint on file.. Assessment Concern: Patient seen in [place] ED via ambulance this evening, boyfriend found [...] does have appointment Friday 07/21 with her Poultry Service Technician Kerry Naranjo CNP for followup. Patient generally frustrated she wasn't given much information or answers in ED visit. Present for: today Home cares tried: takes medications as prescribed Calling to request: advice The recommended disposition is Information or Advice Only Call. Patient agrees to call back if worsens, has followup appointment with cupola liner helper Kerry Narnajo who has been following her, also with her PCP outside [place] on Wednesday, 07/23. Patient and significant other agree to call back if worsens or have additional questions. documented in this encounter Plan of Treatment Upcoming Encounters Date Type Specialty Care Team Description Virtual Visit Transplant Matthew Jerome M .B.B.S., M.D. [address] [place] [phone] 2 Rain Reyes R.N. [address] [place] [address] [phone] Telemedicine Transplant LinaFederico 2 Brigid noyola M.D. [address] [place] [address] [phone] Office Visit Community Internal [facility], 2 Medicine Vernell Perez [address] [place] [phone] Lab Laboratory Medicine Karin, Olinda Gannon M.D., Ph.D. [address] [place] [phone] Lab Laboratory Medicine Olinda Frazier M.D., Ph.D. [address] [place] [phone] Office Visit Transplant Olinda Frazier M.D., Ph.D. [address] [place] [phone] Appointment Radiology Matthew Jerome 2, M.B.B.S., M.D. [address] [place] [address] [phone] Appointment Gastroenterology and Adrianne, 2 Hepatology Yue Burciaga M.D. [address] [place] [phone] Office Visit Gastroenterology and Matthew Jerome 2 Hepatology Joshua RodriguezBSumaBLilian Bedolla [address] [place] [phone] Appointment Radiology Matthew Jerome 2 Joshua RodriguezBSumaBLilian Bedolla [address] [place] [phone] Hospital Gastroenterology and Matthew Jerome Cirrhos is Alcoholic (HCC) 2 Encounter Hepatology Joshua RodriguezB.B.Lilian Stockton [address] [place] [phone] Anesthesia Event Gastroenterology and Rl, 2 Hepatology Ervin Burgos M.D. [address] [place] [address] [phone] Surgery Gastroenterology and Matthew Jerome ESOPHAG OGASTRODUODENOSCOPY 2 Hepatology Joshua RodriguezB.B.SSuma, Lilian [address] [place] [phone] Scheduled Procedures Name Priority Associated Diagnoses Date/Time ESOPHAGOGASTRODUODENOSCOPY Cirrhosis Alc oholic (HCC) 03/20/2022 8:45 AM BREAKER HAND Hypertension Portal (HCC) documented as of this encounter Visit Diagnoses Not on filedocumented in this encounter Care Teams Petrographer Relationship Specialty Start Date End Date Elsewhere, Pcp PCP - General Family Medicine 03/10/20 11/30/21 Ervin Schroeder MD Referring Provider Family Medicine 03/24/[address] [place] [phone] documented as of this encounter
--- OUTSIDE RECORDS SUMMARY | 2022-02-10 09:41 | XMS_ITS | Encounter Summary ---
:1990 Author Organization [facility] Address [address] [place] [address] Care Team Providers Name Role Phone Elsewhere, Pcp Primary Care Provider Unavailable Encounter Details Date Type Department Care Team Description 07/02/2021 Documentation Department of Gastroenterology Myke Fish, in [place], [facility] joe LewisB.B.S [address] [facility] [address] [place] [phone] [place], [place] [phone] Social History Tobacco Use Types Packs/Day [...] you attend taoism or Patient refused 2021 bahai services? Do [...] at Date Recorded Female 04/12/2021 7:39 PM WIRELINE SUPERVISOR documented as of this encounter Progress Notes [...] prefer to be optimized prior to EGD. LINE SUPERVISOR documented in this encounter Plan of Treatment Upcoming Encounters Date Type Specialty Care Team Description Virtual Visit Transplant Matthew Jerome M .B.B.S., MJules [address] [place] [phone] 2 Rain Reyes R.N. [address] [place] [phone] Telemedicine Transplant LinaDemarcus 2 Brigid noyola M.D. [address] [place] [phone] Office Visit Community Internal [facility], 2 Medicine Vernell Perez [address] [place] [address] Lab Laboratory Medicine Karin, 2 Adeline Gannon M.D., Ph.D. [address] [place] [phone] Lab Laboratory Medicine Karin, 2 Adeline Gannon M.D., Ph.D. [address] [place] [address] [phone] Office Visit Transplant Karin, 2 Adeline Gannon M.D., Ph.D. [address] [place] [phone] Appointment Radiology Matthew Jerome 2, M.B.B.S., M.D. [address] [place] [address] Appointment Gastroenterology demian Silver, 2 Hepatology Yue Burciaga M.D. [address] [place] [phone] Office Visit Gastroenterology and Matthew Jerome 2 Hepatology Tyrell Rodriguez, Lilian [address] [place] [phone] Appointment Radiology Matthew Jerome 2 Tyrell Rodriguez, Lilian [address] [place] [phone] Hospital Gastroenterology and Queenie Matthew Cirrhos is Alcoholic (HCC) 2 Encounter Hepatology Tyrell Rodriguez, Lilian [address] [place] [phone] Anesthesia Event Gastroenterology and Rl, 2 Hepatology Ervin Burgos M.D. [address] [place] [phone] Surgery Gastroenterology and Queenie Matthew ESOPHAG OGASTRODUODENOSCOPY 2 Hepatology Tyrell Rodriguez, Lilian [address] [place] [phone] Scheduled Procedures Name Priority Associated Diagnoses Date/Time ESOPHAGOGASTRODUODENOSCOPY Cirrhosis Alc oholic (HCC) 03/20/2022 8:45 AM WIRELINE SUPERVISOR Hypertension Portal (HCC) documented as of this encounter Visit Diagnoses Not on filedocumented in this encounter Care Teams Compactor Driver Relationship Specialty Start Date End Date Elsewhere, Pcp PCP - General Family Medicine 03/10/20 11/30/21 Ervin Schroeder MD Referring Provider Family Medicine 03/24/[address] [place] [phone] documented as of this encounter
--- OUTSIDE RECORDS SUMMARY | 2022-02-10 09:41 | XMS_ITS | Encounter Summary ---
:1990 Author Organization [facility] Address [address] [place] [address] Care Team Providers Name Role Phone Elsewhere, Pcp Primary Care Provider Unavailable Reason for Visit Reason Comments Outpatient Infusion Fresh frozen plasma Encounter Details Date Type Department Care Team Description 07/02/2021 Infusion Department of Infusion Kerry Naranjo, Jt hrombocytopenia (HCC) (Primary Dx); Therapy in [place], TRANSPORTATION LEAD, C.N.P., Cirrhos is Alcoholic (HCC); [place] M.S.N. Splenomegaly Acquired; [address] [facility] [address] 1025 [facility] Hypertension Portal ([place]) [place] [address] [place], [place] [phone] Social History Tobacco Use Types Packs/Day [...] you attend zoroastrian or Patient refused 2021 jewish services? Do you belong to any clubs or No 02/10/2022 organizations such as zoroastrian groups, unions, [employer]ity [employer]ors Group or athletic groups, or school groups? [...] Date Recorded Female 04/12/2021 7:39 PM MARKETING PROPOSAL COORDINATOR documented as of this encounter Last Filed Vital Signs Vital Sign Reading Time Taken Comments Blood Pressure 95/53 07/02/2021 12:56 PM MARKETING PROPOSAL COORDINATOR Pulse 91 07/02/2021 12:56 PM MARKETING PROPOSAL COORDINATOR Temperature 38.2 ??C (100.8 ??F) 07/02/2021 12:56 PM MARKETING PROPOSAL COORDINATOR Respiratory Rate 18 07/02/2021 12:56 PM MARKETING PROPOSAL COORDINATOR Oxygen Saturation 95% 07/02/2021 12:56 PM MARKETING PROPOSAL COORDINATOR Inhaled Oxygen Concentration - - Weight - - Height - - Body Mass Index - - documented in this encounter Plan of Treatment Upcoming Encounters Date Type Specialty Care Team Description Virtual Visit Transplant Matthew Jerome M .B.B.S., M.Slick. [address] [place] [phone] 2 Rain Reyes R.N. [address] [place] [phone] Telemedicine Transplant LinaFederico 2 Brigid noyola M.D. [address] [place] [phone] Office Visit Community Internal [place], 2 Medicine Vernell Perez [address] [place] [phone] Lab Laboratory Medicine Karin, 2 Adeline Gannon M.D., Ph.D. [address] [place] [phone] Lab Laboratory Medicine Karin, 2 Adeline Gannon M.D., Ph.D. [address] [place] [phone] Office Visit Transplant Karin, 2 Adeline Gannon M.D., Ph.D. [address] [place] [phone] Appointment Radiology Matthew Jerome 2 M.B.B.SSuma, MJules [address] [place] [phone] Appointment Gastroenterology and Adrianne, 2 Hepatology Yue Burciaga M.D. [address] [place] [phone] Office Visit Gastroenterology and Matthew Jerome 2 Hepatology Jennifer M.B.B.SSuma, MJules [address] [place] [phone] Appointment Radiology Matthew Jerome 2 YTyrell M.D. [address] [place] [phone] Hospital Gastroenterology and [facility] Cirrhos is Alcoholic (HCC) 2 Encounter Hepatology Tyrell Rodriguez M.D. [address] [place] [phone] Anesthesia Event Gastroenterology and [facility], 2 Hepatology Ervin Burgos M.D. [address] [place] [address] [phone] Surgery Gastroenterology [facility] ESOPHAG OGASTRODUODENOSCOPY 2 Hepatology Tyrell Rodriguez M.D. [address] [place] [phone] Pending Results Name Type Priority Associated Diagnoses Date/Ti mt Prepare Fresh Blood Bank Routine Thrombocytopenia (HCC) 07/02/2021 10:14 AM Frozen Plasma : 2 Cirrhosis Alcoholic (HC C) MARKETING PROPOSAL COORDINATOR Units Scheduled Procedures Name Priority Associated Diagnoses Date/Time ESOPHAGOGASTRODUODENOSCOPY Cirrhosis Alc oholic (HCC) 03/20/2022 8:45 AM MARKETING PROPOSAL COORDINATOR Hypertension Portal (HCC) documented as of this encounter Procedures Procedure Name Priority Date/Time Associated Diagnosis Comme nts PROTHROMBIN TIME Routine 07/02/2021 1:22 Cirrhosis Alcoholic R esults for this (PT), P PM MARKETING PROPOSAL COORDINATOR (HCC) procedure are in Thrombocytopenia (HCC) the results Splenomegaly Acq uired section. Hypertension Portal (HCC) TRANSFUSE FRESH Routine 07/02/2021 11:59 Thrombocytopeni a (HCC) FROZEN PLASMA AM MARKETING PROPOSAL COORDINATOR Cirrhosis Alcoholic (HCC) TRANSFUSE FRESH Routine 07/02/2021 10:57 Thrombocytopeni a (HCC) FROZEN PLASMA AM MARKETING PROPOSAL COORDINATOR Cirrhosis Alcoholic (HCC) PREPARE FRESH Routine 07/02/2021 10:14 Thrombocytopeni a (HCC) FROZEN PLASMA AM MARKETING PROPOSAL COORDINATOR Cirrhosis Alcoholic (HCC) documented in this encounter Results (ABNORMAL) Prothrombin Time (PT) (07/02/2021 1:22 PM MARKETING PROPOSAL COORDINATOR) [facility] Method Time Signature Prothrombin 24.6 (H) 9.4 - 12.5 07/02/2021 MKTO Time, P sec 1:39 PM MARKETING PROPOSAL COORDINATOR INR 2.2 0.9 - 1.1 07/02/2021 MKTO 1:39 PM MARKETING PROPOSAL COORDINATOR Comment: ----ADDITIONAL INFORMATION---- Standard intensity warfarin therapeutic range: 2.0 to 3.0 ?? High intensity warfarin therapeutic rang e: 2.5 to 3.5 Specimen Anatomical Collection Method Collection Time Receive d Time (Source) Location / / Volume Laterality Blood (Blood, 07/02/2021 1:22 PM 07/03/19 1:31 Venous) MARKETING PROPOSAL COORDINATOR PM MARKETING PROPOSAL COORDINATOR Kerry Naranjo APRN, C.N.P., M.S.N. LAB BLOOD ADD-ON Performing Organization Address City/State/ZIP Code Phon e Number [facility]- [address] [place] [address] [place] [address] System in [place] [address] [place] [address] Transfuse Fresh Frozen Plasma :INR >2: Invasive proc scheduled; 180 mL/hr (07/02/2021 12:57 PM MARKETING PROPOSAL COORDINATOR) Kerry Naranjo APRN, C.N.P., M.S.N. BLOOD TRANSFUSION ORDERABLES Transfuse Fresh Frozen Plasma :INR >2: Invasive proc scheduled; 180 mL/hr, 2 Units (07/02/2021 12:57 PM MARKETING PROPOSAL COORDINATOR) Kerry Naranjo APRN, C.N.P., M.S.N. BLOOD TRANSFUSION ORDERABLES Transfuse Fresh Frozen Plasma :INR >2: Invasive proc scheduled; 180 mL/hr (07/02/2021 11:50 AM MARKETING PROPOSAL COORDINATOR) Kerry Naranjo APRN, C.N.P., M.S.N. BLOOD TRANSFUSION ORDERABLES documented in this encounter Visit Diagnoses Diagnosis Thrombocytopenia (HCC) - Primary Cirrhosis Alcoholic (HCC) Splenomegaly Acquired Hypertension Portal (HCC) Cirrhosis Alcoholic (HCC) Cirrhosis Alcoholic (HCC) Hypertension Portal (HCC) documented in this encounter Administered Medications Inactive Administered Medications - up to 3 most recent administrations Medication Order MAR Action Action Date Dose Rate Site acetaminophen tablet 650 mg Given 07/02/2021 1:04 PM MARKETING PROPOSAL COORDINATOR 650 mg (TYLENOL) 650 mg, oral, Once as needed, other, blood products administration, Starting on Wed07/02/21 at 1013, For 1 dose documented in this encounter Care Teams Plastics Fabrication Supervisor Relationship Specialty Start Date End Date Elsewhere, Pcp PCP - General Family Medicine 03/10/20 11/30/21 Ervin Schroeder MD Referring Provider Family Medicine 03/24/[address] [place] [phone] documented as of this encounter
--- OUTSIDE RECORDS SUMMARY | 2022-02-10 09:41 | XMS_ITS | Encounter Summary ---
:1990 Author Organization [facility] Address [address] [place] [address] Care Team Providers Name Role Phone Elsewhere, Pcp Primary Care Provider Unavailable Encounter Details Date Type Department Care Team Description 06/30/2021 Hospital Encounter Department of Rut [facility] Alcoholic Laboratory Magaly Lucas ([facility]) Medicine, Specialty P.A.-C., M.S . [facility], in [place], [address] [place] [phone] [place], [place] [phone] (Work) [phone] Social History Tobacco Use Types Packs/Day Years [...] you attend shinto or Patient refused 2021 caodaism services? Do [...] at Date Recorded Female 04/12/2021 7:39 PM WINDER CONTORT OPERATOR documented as of this encounter Medications [...] upper GI endoscopy has been notified. ER CONTORT OPERATOR documented in this encounter Plan of Treatment Upcoming Encounters Date Type Specialty Care Team Description Virtual Visit Transplant Matthew Jerome M .B.B.S., M.D. 10[address] [place] [phone] 2 Rain Reyes R.N. [address] [place] [phone] Telemedicine Transplant LinaDemarcus 2 Brigid noyola M.D. [address] [place] [phone] Office Visit [facility] Internal [facility], 2 Medicine Vernell Perez [address] [place] [phone] Lab Laboratory Medicine Karin, 2 Adeline Gannon M.D., Ph.D. [address] [place] [phone] Lab Laboratory Medicine Karin 2 Adeline Gannon M.D., Ph.D. [address] [place] [phone] Office Visit Transplant Karin, Olinda Gannon M.D., Ph.D. [address] [place] [phone] Appointment Radiology LuisNew abdular 2 YTyrell M.D. [address] [place] [phone] Appointment Gastroenterology and Adrianne, 2 Hepatology Yue Burciaga M.D. [address] [place] [phone] Office Visit Gastroenterology and Matthew Jerome 2 Hepatology Tyrell Rodriguez M.D. [address] [place] [phone] Appointment Radiology Queenie Matthew 2 Tyrell Rodriguez M.D. [address] [place] [phone] Hospital Gastroenterology and Queenie Matthew Cirrhos is Alcoholic (HCC) 2 Encounter Hepatology Tyrell Rodriguez M.D. [address] [place] [phone] Anesthesia Event Gastroenterology and Rl, 2 Hepatology Ervin Burgos M.D. [address] [place] [phone] Surgery Gastroenterology and Queenie Matthew ESOPHAG OGASTRODUODENOSCOPY 2 Hepatology Tyrell Rodriguez M.D. [address] [place] [phone] Scheduled Procedures Name Priority Associated Diagnoses Date/Time ESOPHAGOGASTRODUODENOSCOPY Cirrhosis Alc oholic (HCC) 03/20/2022 8:45 AM WINDER CONTORT OPERATOR Hypertension Portal (HCC) documented as of this encounter Procedures Procedure Name Priority Date/Time Associated Comments Diagnosis PROTHROMBIN TIME Routine 06/30/2021 2:27 PM Cirrhosis Alcoholi c Results for this (PT), P WINDER CONTORT OPERATOR (HCC) procedure are i n the results section. documented in this encounter Results (ABNORMAL) Prothrombin Time (PT) (06/30/2021 2:27 PM WINDER CONTORT OPERATOR) [facility] Method Time Signature Prothrombin 26.7 (H) 9.4 - 12.5 06/30/2021 MKTO Time, P sec 3:02 PM WINDER CONTORT OPERATOR INR 2.3 0.9 - 1.1 06/30/2021 MKTO 3:02 PM WINDER CONTORT OPERATOR Comment: ----ADDITIONAL INFORMATION---- Standard intensity warfarin therapeutic range: 2.0 to 3.0 ?? High intensity warfarin therapeutic rang e: 2.5 to 3.5 Specimen Anatomical Collection Method Collection Time Receive d Time (Source) Location / / Volume Laterality Blood (Blood, 06/30/2021 2:27 PM 06/30/19 22 2:46 Venous) WINDER CONTORT OPERATOR PM WINDER CONTORT OPERATOR Magaly Molina P.A.-C. MSumaS. LAB BLOOD ADD-ON Performing Organization Address City/State/ZIP Code Phon e Number [facility]- [address] [place] [address] [place] [address] System in [place] 1025 [facility] documented in this encounter Visit Diagnoses Diagnosis Cirrhosis Alcoholic (HCC) Cirrhosis Alcoholic (HCC) Cirrhosis Alcoholic (HCC) Hypertension Portal (HCC) documented in this encounter Additional Health Concerns Infection Onset Date Last Indicated Resolved Time COVID19 Pending 06/30/2021 06/30/2021 06/30/2021 10:43 PM WINDER CONTORT OPERATOR documented as of this encounter Care Teams Director Of Operations Support Relationship Specialty Start Date End Date Elsewhere, Pcp PCP - General Family Medicine 03/10/20 11/30/21 Ervin Schroeder MD Referring Provider Family Medicine 03/24/[address] [place] [address] documented as of this encounter
--- OUTSIDE RECORDS SUMMARY | 2022-02-10 09:41 | XMS_ITS | Encounter Summary ---
:1990 Author Organization [facility] Address [address] [place] [address] Care Team Providers Name Role Phone Elsewhere, Pcp Primary Care Provider Unavailable Encounter Details Date Type Department Care Team Description 04/18/2021 Clinical Communication Department of Kerry Naranjo Gastroenterology in [place], [place] C.N.P., M.S.N. 1025 [facility] 1025 [place] [address] [place], [place] [phone] Social History Tobacco Use Types Packs/Day [...] at Date Recorded Female 04/12/2021 7:39 PM GROUNDMAN/LINEMAN documented as of this encounter Miscellaneous Notes [...] to ask her primary care provider in [place] if he is able to do the laboratory and ultrasound as described below to do at the end of July the beginning of August so the patient does not have to travel so much. She should not be driving, and she should get her primary care provider to [facility] for an assessment for safe driving. Thank [...] She also was instructed to contact her [facility] to sign BIANKA as unable to see her laboratory records in Care everywhere. -EGD/MAC. MAC sedation as screening for varices with possible banding -GI follow-up one week after EGD NDMAN/LINEMAN documented in this encounter Plan of Treatment Upcoming Encounters Date Type Specialty Care Team Description Virtual Visit Transplant Matthew Jerome M .B.B.S., M.D. [address] [place] [phone] 2 Rain Reyes R.N. [address] [place] [phone] Telemedicine Transplant Ashtyn 2 Brigid noyola M.D. [address] [place] [phone] Office Visit [facility] Internal Neda, 2 Solitario Perez P.A.-C. [address] [place] [phone] Lab Laboratory Medicine Olinda Frazier M.D., Ph.D. [address] [place] [phone] Lab Laboratory Medicine Karin, Olinda Gannon M.D., Ph.D. [address] [place] [phone] Office Visit Transplant Karin, Olinda Gannon M.D., Ph.D. [address] [place] [phone] Appointment Radiology Matthew Jerome 2 YJoshuaBSumaBLilian Bedolla [address] [place] [phone] Appointment Gastroenterology and Adrian[place], 2 Hepatology Yue Burciaga M.D. [address] [place] [phone] Office Visit Gastroenterology and Matthew Jerome 2 Hepatology Joshua RodriguezBSumaBSumaSLilian Moise [address] [place] [phone] Appointment Radiology Matthew Jerome 2 Elizabeth Rodriguez.B.B.Lilian Stock[place] [address] [place] [phone] Hospital Gastroenterology and Matthew Jerome Cirrhos is Alcoholic (HCC) 2 Encounter Hepatology Joshua RodriguezBSumaBLilian Bedolla [address] [place] [phone] Anesthesia Event Gastroenterology and Rl, 2 Hepatology Ervin Burgos M.D. [address] [place] [phone] Surgery Gastroenterology and Mousa, Matthew ESOPHAG OGASTRODUODENOSCOPY 2 Hepatology Tyrell Rodriguez M.D. [address] [place] [phone] Scheduled Procedures Name Priority Associated Diagnoses Date/Time ESOPHAGOGASTRODUODENOSCOPY Cirrhosis Alc oholic (HCC) 03/20/2022 8:45 AM GROUNDMAN/LINEMAN Hypertension Portal (HCC) documented as of this encounter Visit Diagnoses Not on filedocumented in this encounter Care Teams Aerobics Instructor Relationship Specialty Start Date End Date Elsewhere, Pcp PCP - General Family Medicine 03/10/20 11/30/21 Ervin Schroeder MD Referring Provider Family Medicine 03/24/[address] [place] [address] [phone] documented as of this encounter
--- OUTSIDE RECORDS SUMMARY | 2022-02-10 09:41 | XMS_ITS | Encounter Summary ---
:1990 Author Organization [facility] Address [address] [place] [address] Care Team Providers Name Role Phone Elsewhere, Pcp Primary Care Provider Unavailable Encounter Details Date Type Department Care Team Description 06/24/2021 Lab Department of [facility] Sera Morgan, En counter For Medicine in [place], P.A.-C. Preprocedural Laboratory [address] Examination (COVID-19) 10[address] [place] [address] [place] [address] [phone] Social History Tobacco Use Types Packs/Day Years [...] you attend cheondoism or Patient refused 2021 quaker services? Do you belong to any clubs or No 02/10/2022 organizations such as cheondoism groups, unions, fraternal [...] or slept in a longterm (including now)? Sex Assigned at Date Recorded Female 04/12/2021 7:39 PM CORPORATE LEARNING CONSULTANT documented as of this encounter Plan of Treatment Upcoming Encounters Date Type Specialty Care Team Description Virtual Visit Transplant Matthew Jerome M .B.B.S., Lilian [address] [place] [address] 2 Rain Reyes R.N. [address] [place] [phone] Telemedicine Transplant LinaFederico 2 Brigid noyola M.D. [address] [place] [phone] Office Visit Community Internal Neda, 2 Solitario Perez P.A.-C. [address] [place] [address] Lab Laboratory Medicine Karin, 2 Adeline Gannon M.D., Ph.D. [address] [place] [phone] Lab Laboratory Medicine Olinda Frazier M.D., Ph.D. [address] [place] [phone] Office Visit Transplant Karin, Olinda Gannon M.D., Ph.D. [address] [place] [phone] Appointment Radiology Matthew Jerome 2 YJoshuaB.BLilian Bedolla [address] [place] [phone] Appointment Gastroenterology and Adrianne, 2 Hepatology Yue Burciaga M.D. [address] [place] [phone] Office Visit Gastroenterology and Matthew Jerome 2 Hepatology Joshua RodriguezBSumaBLilian Bedolla [address] [place] [phone] Appointment Radiology Matthew Jerome 2 YJoshuaB.BLilian Bedolla [address] [place] [phone] Hospital Gastroenterology and Matthew Jerome Cirrhos is Alcoholic (HCC) 2 Encounter Hepatology Joshua RodriguezB.B.Lilian Stockton [address] [place] [phone] Anesthesia Event Gastroenterology and Rl, 2 Hepatology Ervin Burgos M.D. [address] [place] [phone] Surgery Gastroenterology and Mousa, Matthew ESOPHAG OGASTRODUODENOSCOPY 2 Hepatology Tyrell Rodriguez M.D. 10[address] [place] [address] Scheduled Procedures Name Priority Associated Diagnoses Date/Time ESOPHAGOGASTRODUODENOSCOPY Cirrhosis Alc oholic (HCC) 03/20/2022 8:45 AM CORPORATE LEARNING CONSULTANT Hypertension Portal (HCC) documented as of this encounter Procedures Procedure Name Priority Date/Time Associated Diagnosis Comme nts SARS CORONAVIRUS-2 Routine 06/24/2021 3:50 PM Encounter For Re sults for this RNA, V CORPORATE LEARNING CONSULTANT Preprocedural procedure are in Laboratory Examination the r esults (COVID-19) section. documented in this encounter Results SARS Coronavirus-2 RNA, V Asymptomatic (06/24/2021 3:50 PM CORPORATE LEARNING CONSULTANT) [facility] Method Time Signature SARS-CoV-2 Swab, 06/24/2021 MKTO Specimen Nasopharynx 10:05 PM Source CORPORATE LEARNING CONSULTANT SARS CoV-2 Undetected Undetected 06/24/2021 MKTO RNA, TMA 10:05 PM CORPORATE LEARNING CONSULTANT Comment: SARS-CoV-2 RNA absent. This result does not rule out COVID-19 in the patient, as the sensitivity of the test depends o n the timing of the specimen collection and the quality of the specim en. Result should be correlated with patient's history and clinical presentat ion. ----ADDITIONAL INFORMATION---- This molecular amplification test was pe rformed using the Aptima SARS-CoV-2 assay ([employer] on the BAASBOXs tem under emergency use authorization (EUA) by the U.S. Food and Drug Administ ration. Fact sheets for this EUA assay can be fo und at the following links: For Healthcare Providers: https://www.fd a.gov/media/672334/download For Patients: https://www.fda.gov/media/ 352299/download Specimen Anatomical Collection Method Collection Time Receive d Time (Source) Location / / Volume Laterality Varies 06/24/2021 3:50 PM 2 5:05 (Nasopharynx) CORPORATE LEARNING CONSULTANT PM CORPORATE LEARNING CONSULTANT Sera Morgan P.A.-C. LAB MICROBIOLOGY - GENERAL O RDERABLES Performing Organization Address City/State/ZIP Code Phon e Number [facility]5 [place], [place] [id number] [place] [address] [place] [address] System in [place] 1025 [facility] documented in this encounter Visit Diagnoses Diagnosis Encounter For Preprocedural Laboratory E xamination (COVID-19) Cirrhosis Alcoholic (HCC) Cirrhosis Alcoholic (HCC) Hypertension Portal (HCC) documented in this encounter Care Teams Corrugator Supervisor Relationship Specialty Start Date End Date Elsewhere, Pcp PCP - General Family Medicine 03/10/20 11/30/21 Ervin Schroeder MD Referring Provider Family Medicine 03/24/211979 [address], [place] [address] documented as of this encounter
--- OUTSIDE RECORDS SUMMARY | 2022-02-10 09:41 | XMS_ITS | Encounter Summary ---
:1990 Author Organization [facility] Address [address] [place] [address] Care Team Providers Name Role Phone Elsewhere, Pcp Primary Care Provider Unavailable Reason for Referral Appointment Request (Routine) - Closed Specialty Diagnoses / Procedures Referred By Contact Refer red To Contact Diagnoses Cirrhosis Alcoholic (HCC) Ascites Anemia Macrocytic Thrombocytopenia (HCC) Deficiency Coagulation Acquired (HCC) Kerry Naranjo APRN, Procedures Prothrombin Time (PT) C.N.Shanita., M.S.N. [address] [place] [phone] Referral ID Status Reason Start Date Expiration Date Visits Requ ested Visits Authorized [id number] Closed 07/07/2021 07/07/2022 1 DENTIAL NURSE Encounter Details Date Type Department Care Team Description 07/04/2021 Clinical Communication Department of Felicita Spicer Gastroenterology in [place] [place], [place] [phone] [address] [place] [address] Social History Tobacco Use Types Packs/Day Years [...] you attend yazdanism or Patient refused 2021 orthodox services? 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 - 2021 11:19 AM RESIDENTIAL NURSE As stated below by Kerry Naranjo, the following is the plan for this patient and upcoming EGD. I have ordered Vitamin K 5 mg X 7 days, to take orally. Then follow up by repeat PT/INR on the 8th day. Please call pt and ask to get the lab at [facility] in [place]; this allows access to results. Past attempts [...] it was okay to leave detailed message. Window Shade Ring Sewer called to again discuss plan with patient and left a detailed message as outlined above. Informed her to expect a call from scheduling to set up the lab appointment. DENTIAL NURSE Telephone Encounter - Felicita Spicer L.P.N. - [...] had no further questions at this time. DENTIAL NURSE Telephone Encounter - Kerry Naranjo APRN, C.N.PSuma, M.S.N. - 07/08/2021 12:53 PM CST Her upper GI endoscopy is screening for the presence of varices. This is non urgent at this time as to the best of my knowledge she is not currently having any GI bleeding related to the presence of varices. August 12 would be okay Kerry Naranjo APRN, C.N.P., M.S.N. DENTIAL NURSE Telephone Encounter - Mihaela Dudley - 07/08/2021 12:45 PM CST Pt called to schedule that EGD. First Available that we have is Marcela 12 with Mac sedation. Pt claims this [...] answer all her questions before the procedure. DENTIAL NURSE Telephone Encounter - Felicita Spicer L.P.N. - 07/08/2021 10:16 AM RESIDENTIAL NURSE Patient returned call and it was discussed [...] also report that she is [place] [facility] and inquired if [facility] had beds available. Informed her that I am unaware of hospital bed availability. She had no further questions at this time. DENTIAL NURSE Telephone Encounter - Felicita Spicer L.P.N. - [...] patient can pickup closer to procedure date. DENTIAL NURSE Telephone Encounter - Kerry Naranjo APRN C.N.P., M.S.N. - 07/07/2021 1:43 PM CST I have ordered Vitamin K 5 mg X 7 days, to take orally. Then follow up by repeat PT/INR on the 8th day. Please call pt and ask to get the lab at [facility] in [place]; this allows access to results. Past attempts to get lab work from outside PCP has failed. She should start to take the Vitamin K 10 days prior to the r/s EGD. I have also ordered the EGD/MAC, however the last EGD should of been put back in the que and not cancelled. Thank you, Kerry DENTIAL NURSE Telephone Encounter - Felicita Spicer L.P.N. - 07/04/2021 9:00 AM CST Window Shade Ring Sewer received a call this morning from endoscopy [...] the patient she does have several questions, selling underwriter informed her it may not be a bad idea to keep theappointment even if she has not had the EGD as this will allow her to ask her questions and get some answers. Window Shade Ring Sewer informed the patient that I would follow up regarding the plan moving forward as I see recommendations documented in the chart, however I do not see any specific orders. Informed her that Kerry is out of office today and should be back on Wednesday. DENTIAL NURSE documented in this encounter Plan of Treatment Upcoming Encounters Date Type Specialty Care Team Description Virtual Visit Transplant Matthew Jerome M .B.B.SSuma, MJules [address] [place] [address] 2 Rain Reyes R.N. [address] [place] [phone] Telemedicine Transplant LinaFederico 2 Brigid noyola M.D. [address] [place] [phone] Office Visit [facility] Internal [facility], 2 Medicine Vernell Perez [address] [place] [phone] Lab Laboratory Medicine Karin, 2 Adeline Gannon M.D., Ph.D. [address] [place] [phone] Lab Laboratory Medicine Karin, 2 Adeline Gannon M.D., Ph.D. [address] [place] [phone] Office Visit Transplant Karin, 2 Adeline Gannon M.D., Ph.D. [address] [place] [phone] Appointment Radiology Matthew Jerome 2, M.B.B.SSuma, MJules [address] [place] [phone] Appointment GastroenterMorenita, 2 Hepatology Yue Burciaga M.D. [address] [place] [phone] Office Visit Gastroenterology and [facility] 2 Hepatology Tyrell Rodriguez M.D. [address] [place] [phone] Appointment Radiology [facility] 2 YTyrell M.D. [address] [place] [phone] Hospital Gastroenterology and [facility] Cirrhos is Alcoholic (HCC) 2 Encounter Hepatology Tyrell Rodriguez M.D. [address] [place] [phone] Anesthesia Event Gastroenterology and Rl, 2 Hepatology Ervin Burgos M.D. [address] [place] [phone] Surgery Gastroenterology and [facility] ESOPHAG OGASTRODUODENOSCOPY 2 Hepatology Tyrell Rodriguez M.D. [address] [place] [phone] Scheduled Procedures Name Priority Associated Diagnoses Date/Time ESOPHAGOGASTRODUODENOSCOPY Cirrhosis Alc oholic (HCC) 03/20/2022 8:45 AM RESIDENTIAL NURSE Hypertension Portal (HCC) documented as of this encounter Results (ABNORMAL) Prothrombin Time (PT) (08/28/2021 5:01 PM CDT) [facility] Method Time Signature Prothrombin 25.9 (H) [...] Venous) CDT PM CDT Kerry Naranjo APRN C.N.P., M.S.N. LAB BLOOD ADD-ON Performing Organization Address City/State/ZIP Code Phon e Number [facility] [address] [place] [address] [facility] [place] [address] System in [place] [address] documented in this encounter Visit Diagnoses Diagnosis Cirrhosis Alcoholic (HCC) - Primary Ascites Anemia Macrocytic Thrombocytopenia (HCC) Deficiency Coagulation Acquired (HCC) Cirrhosis Alcoholic (HCC) Cirrhosis Alcoholic (HCC) Hypertension Portal (HCC) documented in this encounter Additional Health Concerns Infection Onset Date Last Indicated Resolved Time COVID19 Pending 07/06/2021 07/06/2021 07/06/2021 11:34 AM RESIDENTIAL NURSE COVID19 Pending 07/25/2021 07/25/2021 07/25/2021 10:07 PM CDT documented as of this encounter Care Teams Undercoat Sprayer Relationship Specialty Start Date End Date Elsewhere, Pcp PCP - General Family Medicine 03/10/20 11/30/21 Ervin Schroeder MD Referring Provider Family Medicine 03/24/[address] [place] [phone] documented as of this encounter
--- OUTSIDE RECORDS SUMMARY | 2022-02-10 09:41 | XMS_ITS | Encounter Summary ---
:1990 Author Organization [facility] Address [address] [place] [address] Care Team Providers Name Role Phone Elsewhere, Pcp Primary Care Provider Unavailable Encounter Details Date Type Department Care Team Description 04/29/2021 Clinical Communication Department of Kerry Naranjo Gastroenterology in [place], [place] C.N.P., M.S.N. 1025 [facility] 1025 [place] [address] [place], [place] [phone] [address] Social History Tobacco Use Types Packs/Day [...] you attend moravian or Patient refused 2021 yarsani services? 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 - 04/29/2021 4:07 PM CST Notified patient of recommendations. Patient was very appreciative of the information. UTER AIDED DESIGN OPERATOR Telephone Encounter - Kerry Naranjo APRN, C.NDayne, M.S.N. - 04/29/2021 4:03 PM CST Reviewed gabapentin in relation to hepatic/liver disease there are no adjustments needed (per [employer]). It is ok for her to take. Kerry Naranjo APRN, C.N.PSuma, M.S.N. UTER AIDED DESIGN OPERATOR Telephone Encounter - Ines Warren R.N. - [...] to taking gabapentin from a GI standpoint? UTER AIDED DESIGN OPERATOR Telephone Encounter - Elizabet Corrales - 04/29/2021 2:41 PM CST Patient is requesting a call back in regards to her Gabapentin from Kerry Naranjo. Ok to leave a message. UTER AIDED DESIGN OPERATOR documented in this encounter Plan of Treatment Upcoming Encounters Date Type Specialty Care Team Description Virtual Visit Transplant Matthew Jerome M .B.B.S., M.D. 10[address] [place] [phone] 2 Rain Reyes R.N. [address] [place] [phone] [facility]medicine [facility] 2 Brigid noyola M.D. [address] [place] [phone] Office Visit [facility] Neda, 2 Medicine Vernell Perez [address] [place] [phone] Lab Laboratory Medicine Karin, 2 Adeline Gannon M.D., Ph.D. [address] [place] [address] [phone] Lab Laboratory Medicine Karin, 2 Adeline Gannon M.D., Ph.D. [address] [place] [address] [phone] Office Visit Transplant Karin, 2 Adeline Gannon M.D., Ph.D. [address] [place] [phone] Appointment Radiology Matthew Jerome 2 YVikBGraeme, Lilian [address] [place] [phone] Appointment Gastroenterology and Adrianne, 2 Hepatology Yue Burciaga M.D. [address] [place] [address] [phone] [facility] 2 Hep[facility]ology Joshua RodriguezBSumaBLilian Bedolla [address] [place] [phone] Appointment Radiology Matthew Jerome 2 YJoshuaB.B.Lilian [place] [address] [place] [phone] Hospital Gastroenterology and [facility] Cirrhos is Alcoholic (HCC) 2 Encounter Hepatology Elizabeth Rodriguez.B.B.Lilian [place] [address] [place] [phone] Anesthesia Event Gastroenterology and Rl, 2 Hepatology Ervin Burgos M.D. [address] [place] [phone] Surgery Gastroenterology and [facility] ESOPHAG OGASTRODUODENOSCOPY 2 Hepatology Joshua RodriguezB.B.Lilian Stockton [address] [place] [phone] Scheduled Procedures Name Priority Associated Diagnoses Date/Time ESOPHAGOGASTRODUODENOSCOPY Cirrhosis Alc oholic (HCC) 03/20/2022 8:45 AM COMPUTER AIDED DESIGN OPERATOR Hypertension Portal (HCC) documented as of this encounter Visit Diagnoses Not on filedocumented in this encounter Care Teams Plant Chief Relationship Specialty Start Date End Date Elsewhere, Pcp PCP - General Family Medicine 03/10/20 11/30/21 Ervin Schroeder MD Referring Provider Family Medicine 03/24/[address] [place], [place] [address] [phone] documented as of this encounter
--- OUTSIDE RECORDS SUMMARY | 2022-02-10 09:41 | XMS_ITS | Encounter Summary ---
:1990 Author Organization [facility] Address [address] [place] [address] Care Team Providers Name Role Phone Elsewhere, Pcp Primary Care Provider Unavailable Encounter Details Date Type Department Care Team Description 06/26/2021 Clinical Communication Department of Jesse Gastroenterology in [place], [place] PAshish, M.S. [address] [facility] 1025 [place] [address] [place], [place] [phone] Social History Tobacco Use Types Packs/Day [...] How often do you attend jain or Patient refused 2021 mosque services? 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 - 06/26/2021 3:16 PM MOISTURE METER OPERATOR Could you put in an INR check for this patient? She will be having her EGD rescheduled per Dr. Paul.Last INR was 2.7 and has not been rechecked recently. If she has the procedure done in our soonest opening, she will need to have the INR drawn tomorrow (06-27-21) or Wednesday (06-30-21). Thank you for your help. Paty TURE METER OPERATOR documented in this encounter Plan of Treatment Upcoming Encounters Date Type Specialty Care Team Description Virtual Visit Transplant Matthew Jerome M .B.B.S., MCee. [address] [place] [phone] 2 Rain Reyes R.N. [address] [place] [address] Telemedicine Transplant Ashtyn 2 Brigid noyola M.D. [address] [place] [phone] Office Visit Community Internal Carlos, 2 Medicine Vernell Perez [address] [place] [phone] Lab Laboratory Medicine Karin, 2 Adeline Gannon M.D., Ph.D. [address] [place] [phone] Lab Laboratory Medicine Karin, 2 Adeline Gannon M.D., Ph.D. [address] [place] [phone] Office Visit Transplant Karin, 2 Adeline Gannon M.D., Ph.D. [address] [place] [phone] Appointment Radiology Matthew Jerome 2 M.B.B.SSuma, MJules [address] [place] [address] Appointment Gastroenterology and Adrianne, 2 Hepatology Yue Burciaga M.D. [address] [place] [phone] Office Visit Gastroenterology and Matthew Jerome 2 Hepatology Joshua RodriguezBSumaB.SLilian Moise 1025 [place] [phone] Appointment Radiology Matthew Jerome 2 YTyrell M.D. [address] [place] [phone] Hospital Gastroenterology and Dechantell Matthew Cirrhos is Alcoholic (HCC) 2 Encounter Hepatology Tyrell Rodriguez M.D. [address] [place] [phone] Anesthesia Event Gastroenterology and [facility], 2 Hepatology Ervin Burgos M.D. [address] [place] [phone] Surgery Gastroenterology and [facility] ESOPHAG OGASTRODUODENOSCOPY 2 Hepatology Tyrell Rodriguez M.D. [address] [place] [phone] Scheduled Procedures Name Priority Associated Diagnoses Date/Time ESOPHAGOGASTRODUODENOSCOPY Cirrhosis Alc oholic (HCC) 03/20/2022 8:45 AM MOISTURE METER OPERATOR Hypertension Portal (HCC) documented as of this encounter Visit Diagnoses Not on filedocumented in this encounter Care Teams Chemical Operations Specialist Relationship Specialty Start Date End Date Elsewhere, Pcp PCP - General Family Medicine 03/10/20 11/30/21 Ervin Schroeder MD Referring Provider Family Medicine 03/24/[address] [place] [phone] documented as of this encounter
--- OUTSIDE RECORDS SUMMARY | 2022-02-10 09:41 | XMS_ITS | Encounter Summary ---
:1990 Author Organization [facility] Address [address] [place] [address] Care Team Providers Name Role Phone Elsewhere, Pcp Primary Care Provider Unavailable Encounter Details Date Type Department Care Team Description 05/23/2021 Clinical Communication Department of Felicita Spicer Gastroenterology in [place], [place] [phone] 1025 [facility] ([facility] [place] [phone] Social History Tobacco Use Types Packs/Day [...] you attend uatsdin or Patient refused 2021 sikhism services? 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 Professor Of Forest Planning did inform her that often withliver disease the recommendations are to avoid all NSAIDs but that tylenol can be used in moderationas needed. She states she was just wondering as lots of the cold medications do contain tylenol and she just wanted to be sure it was okay for her to take before using any of the OTC cold medications. She also asked health science writer to pass along to Kerry as [...] She wonders if this could have contributed. Professor Of Forest Planning informed patient I would get all her questions to the provider and update her with her response regarding the cold medication. She had no further questions at this time. ITORY SALES EXECUTIVE documented in this encounter Plan of Treatment Upcoming Encounters Date Type Specialty Care Team Description Virtual Visit Transplant Matthew Jerome M .B.B.S., MJules 1025 [place] [address] 2 Rain Reyes R.N. [address] [place] [address] [phone] Telemedicine [facility] 2 Brigid noyola M.D. [address] [place] [phone] Office Visit [facility], 2 Medicine Vernell Perez [address] [place] [phone] Lab Laboratory Medicine Karin, 2 Adeline Gannon M.D., Ph.D. [address] [place] [phone] Lab Laboratory Medicine Karin, 2 Adeline Gannon M.D., Ph.D. [address] [place] [phone] Office Visit Transplant Karin, 2 Adeline Gannon M.D., Ph.D. [address] [place] [phone] Appointment Radiology Matthew Jerome 2, M.B.B.S., Lilian [address] [place] [phone] Appointment Gastroenterology demian Silver, 2 Hepatology Yue Burciaga M.D. [address] [place] [address] Office Visit Gastroenterology and [place] Matthew 2 Hepatology Tyrell Rodriguez M.D. [address] [place] [phone] Appointment Radiology Luischantell Matthew 2 Tyrell Rodriguez M.D. [address] [place] [phone] [facility] Gastroenterology and [facility] Matthew Cirrhos is Alcoholic (HCC) 2 Encounter Hepatology Tyrell Rodriguez M.D. [address] [place] [phone] Anesthesia Event Gastroenterology and Rl, 2 Hepatology Ervin Burgos M.D. [address] [place] [address] [phone] Surgery Gastroenterology and Queenie Matthew ESOPHAG OGASTRODUODENOSCOPY 2 Hepatology Tyrell Rodriguez M.D. [address] [place] [phone] Scheduled Procedures Name Priority Associated Diagnoses Date/Time ESOPHAGOGASTRODUODENOSCOPY Cirrhosis Alc oholic (HCC) 03/20/2022 8:45 AM TERRITORY SALES EXECUTIVE Hypertension Portal (HCC) documented as of this encounter Visit Diagnoses Not on filedocumented in this encounter Care Teams Counter Tender Relationship Specialty Start Date End Date Elsewhere, Pcp PCP - General Family Medicine 03/10/20 11/30/21 Ervin Schroeder MD Referring Provider Family Medicine 03/24/[address] [place] [address] documented as of this encounter
--- OUTSIDE RECORDS SUMMARY | 2022-02-10 09:41 | XMS_ITS | Encounter Summary ---
:1990 Author Organization [facility] Address [address] [place] [address] Care Team Providers Name Role Phone Elsewhere, Pcp Primary Care Provider Unavailable Reason for Visit Reason Comments Fever Encounter Details Date Type Department Care Team Description 07/06/2021 Nurse Triage Department of [facility] Arabella Rosa, RSmuaNSuma Fever Medicine in [place], [address] [place] [address] [address] [phone] [place] [address] Social History Tobacco Use Types [...] you attend congregation or Patient refused 2021 orthodoxy services? 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 - 07/06/2021 2:57 AM CST Chief Complaint / Reason for Call Patient is a 30 y.o. female calling regarding Fever. Assessment Concern: 100.4 fever with stage 4 liver cirrhosis diagnosis. No other new symptoms. Present for: Franklin somewhat feverish over past 24 hours, but more noticeable in past 2 hours. Home cares tried: None Calling to request: Advice The recommended disposition is Information or Advice Only Call. .Transferred for [facility] specialty. Patient unable to take OTCs and is unsure of urgency of fever with medical condition. RE MODEL documented in this encounter Plan of Treatment Upcoming Encounters Date Type Specialty Care Team Description Virtual Visit Transplant Matthew Jerome M .B.B.S., M.Slick. 10[address] [place] [phone] 2 Rain Reyes R.N. [address] [place] [address] Telemedicine Transplant LinaFederico 2 Brigid noyola M.D. [address] [place] [phone] Office Visit Community Internal Carlosic, 2 Medicine Vernell Perez [address] [place] [phone] Lab Laboratory Medicine Karin, 2 Adeline Gannon M.D., Ph.D. [address] [place] [phone] Lab Laboratory Medicine Karin, 2 Adeline Gannon M.D., Ph.D. [address] [place] [phone] Office Visit Transplant Karin, 2 Adeline Gannon M.D., Ph.D. [address] [place] [phone] Appointment Radiology Matthew Jerome 2, M.B.B.Lilian [place] [address] [place] [phone] Appointment Gastroenterology and Adrianne, 2 Hepatology Yue Burciaga M.D. [address] [place] [phone] Office Visit Gastroenterology and Matthew Jerome 2 Hepatology Joshua RodriguezBSumaB.SLilian Moise [address] [place] [phone] [facility] Matthew 2 YTyrell M.D. [address] [place] [address] [phone] Hospital Gastroenterology and [facility] Cirrhos is Alcoholic (HCC) 2 Encounter Hepatology Tyrell Rodriguez M.D. [address] [place] [phone] Anesthesia Event Gastroenterology and [facility], 2 Hepatology Ervin Burgos M.D. [address] [place] [address] [phone] Surgery Gastroenterology and [facility] ESOPHAG OGASTRODUODENOSCOPY 2 Hepatology Tyrell Rodriguez M.D. [address] [place] [address] [phone] Scheduled Procedures Name Priority Associated Diagnoses Date/Time ESOPHAGOGASTRODUODENOSCOPY Cirrhosis Alc oholic (HCC) 03/20/2022 8:45 AM FIGURE MODEL Hypertension Portal (HCC) documented as of this encounter Visit Diagnoses Not on filedocumented in this encounter Care Teams Dielectric Tester Relationship Specialty Start Date End Date Elsewhere, Pcp PCP - General Family Medicine 03/10/20 11/30/21 Ervin Schroeder MD Referring Provider Family Medicine 03/24/[address] [place] [phone] documented as of this encounter
--- OUTSIDE RECORDS SUMMARY | 2022-02-10 09:41 | XMS_ITS | Encounter Summary ---
:1990 Author Organization [facility] Address [address] [place] [address] Care Team Providers Name Role Phone Elsewhere, Pcp Primary Care Provider Unavailable Encounter Details Date Type Department Care Team Description 05/06/2021 Clinical Communication Department of Kerry Naranjo Gastroenterology in [place], [place] C.N.P., M.S.N. 1025 [facility] 1025 [place] [address] [place], [place] [phone] Social History Tobacco Use Types Packs/Day [...] you attend cheondoism or Patient refused 2021 bahai services? 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 [address] [place] [phone] Telemedicine Transplant [facility] center[facility] 2 Brigid noyola M.D. [address] [place] [address] [phone] Office Visit Community Internal Neda, 2 Medicine Vernell Perez [address] [place] [phone] Lab Laboratory Medicine Karin, 2 Adeline Gannon M.D., Ph.D. [address] [place] [address] [phone] Lab Laboratory Medicine KarinOlinda Adeline Gannon M.D., Ph.D. [address] [place] [address] [phone] Office Visit Transplant Karin, Olinda Adeline Gannon M.D., Ph.D. [address] [place] [address] [phone] Appointment Radiology LuisNew abdular 2 Y, M.B.B.SSuma, Lilian [address] [place] [phone] Appointment Gastroenterology demian Silver 2 Hepatology Yue Burciaga M.D. [address] [place] [address] [phone] Office Visit Gastroenterology and LuisNew abdular 2 Hepatology Jennifer M.B.B.SSuma, Lilian [address] [place] [phone] Appointment Radiology LuisNew abdular 2 Y M.B.B.SSuma, Lilian [address] [place] [phone] [facility] Gastroenterology and [place] Matthew Cirrhos is Alcoholic (HCC) 2 Encounter Hepatology Jennifer M.B.B.SSuma, Lilian [address] [place] [phone] Anesthesia Event Gastroenterology and Rl, 2 Hepatology Ervin Burgos M.D. [address] [place] [address] [phone] Surgery Gastroenterology and Mousa, Matthew ESOPHAG OGASTRODUODENOSCOPY 2 Hepatology Tyrell Rodriguez M.D. [address] [place] [phone] Scheduled Procedures Name Priority Associated Diagnoses Date/Time ESOPHAGOGASTRODUODENOSCOPY Cirrhosis Alc oholic (HCC) 03/20/2022 8:45 AM HAND SPLITTER Hypertension Portal (HCC) documented as of this encounter Visit Diagnoses Not on filedocumented in this encounter Care Teams Cabin Crew Relationship Specialty Start Date End Date Elsewhere, Pcp PCP - General Family Medicine 03/10/20 11/30/21 Ervin Schroeder MD Referring Provider Family Medicine 03/24/[address] [place] [phone] documented as of this encounter
--- OUTSIDE RECORDS SUMMARY | 2022-02-10 09:41 | XMS_ITS | Encounter Summary ---
:1990 Author Organization [facility] Address [address] [place] [address] Care Team Providers Name Role Phone Elsewhere, Pcp Primary Care Provider Unavailable Encounter Details Date Type Department Care Team Description 06/30/2021 Lab Department of Kerry Gee Enc ounter For Screening Medicine in [facility], C.N.P., For Ot her Viral Diseases [facility] ([facility]-19) 1025 [facility] 1025 [place] [phone] [place], [place] [phone] (Wo rk) Social History Tobacco Use [...] attend roman catholic or Patient refused 2021 yarsanism services? 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 [address] [place] [address] [phone] Telemedicine Transplant LinaDemarcus 2 Brigid noyola M.D. [address] [place] [phone] Office Visit Community Internal Neda, 2 Solitario Perez P.A.-C. [address] [place] [phone] Lab Laboratory Medicine Karin, 2 Adeline Gannon M.D., Ph.D. [address] [place] [phone] Lab Laboratory Medicine Olinda Frazier M.D., Ph.D. [address] [place] [phone] Office Visit Transplant Olinda Frazier M.D., Ph.D. [address] [place] [phone] Appointment Radiology Matthew Jerome 2 YTyrell M.D. [address] [place] [phone] Appointment Gastroenterology and Adrianne, 2 Hepatology Yue Burciaga M.D. [address] [place] [phone] Office Visit Gastroenterology and Matthew Jerome 2 Hepatology Vik RodriguezBLilian Bedolla [address] [place] [address] [phone] Appointment Radiology Matthew Jerome 2 YJoshuaBSumaBLilian Bedolla [address] [place] [phone] Hospital Gastroenterology and Matthew Jerome Cirrhos is Alcoholic (HCC) 2 Encounter Hepatology Vik RodriguezBLilian Bedolla [address] [place] [phone] Anesthesia Event Gastroenterology and Rl, 2 Hepatology Ervin Burgos M.D. 1025 [place] [phone] Surgery Gastroenterology and Mousa, Matthew ESOPHAG OGASTRODUODENOSCOPY 2 Hepatology Tyrell Rodriguez M.D. [address] [place] [phone] Scheduled Procedures Name Priority Associated Diagnoses Date/Time ESOPHAGOGASTRODUODENOSCOPY Cirrhosis Alc oholic (HCC) 03/20/2022 8:45 AM POSTPARTUM RN Hypertension Portal (HCC) documented as of this encounter Procedures Procedure Name Priority Date/Time Associated Diagnosis Comme nts SARS CORONAVIRUS-2 Routine 06/30/2021 2:34 PM Encounter For Re sults for this RNA, V POSTPARTUM RN Screening For Other procedur e are in Viral Diseases the results (COVID-19) section. documented in this encounter Results SARS Coronavirus-2 RNA, V Asymptomatic (06/30/2021 2:34 PM POSTPARTUM RN) [facility] gist Method Time Signature SARS-CoV-2 Swab, 06/30/2021 MKTO Specimen Nasopharynx 10:42 PM Source POSTPARTUM RN SARS CoV-2 Undetected Undetected 06/30/2021 MKTO RNA, TMA 10:42 PM POSTPARTUM RN Comment: SARS-CoV-2 RNA absent. This result does not rule out COVID-19 in the patient, as the sensitivity of the test depends o n the timing of the specimen collection and the quality of the specim en. Result should be correlated with patient's history and clinical presentat ion. ----ADDITIONAL INFORMATION---- This molecular amplification test was pe rformed using the Aptima SARS-CoV-2 assay ([employer] on the [employer] tem under emergency use authorization (EUA) by the U.S. Food and Drug Administ ration. Fact sheets for this EUA assay can be fo und at the following links: For Healthcare Providers: https://www.fd a.gov/media/020935/download For Patients: https://www.fda.gov/media/ 626447/download Specimen Anatomical Collection Method Collection Time Receive d Time (Source) Location / / Volume Laterality Varies 06/30/2021 2:34 PM 5:12 (Nasopharynx) POSTPARTUM RN PM POSTPARTUM RN Kerry Naranjo APRN, C.N.P., M.S.N. LAB MICROBIOLOGY - GENERAL ORDERABLES Performing Organization Address City/State/ZIP Code Phon e Number [facility]- [address] [place] [address] [place] [address] System in [place] [address] [place] [address] documented in this encounter Visit Diagnoses Diagnosis Encounter For Screening For Other Viral Diseases (COVID-19) Cirrhosis Alcoholic (HCC) Cirrhosis Alcoholic (HCC) Hypertension Portal (HCC) documented in this encounter Additional Health Concerns Infection Onset Date Last Indicated Resolved Time COVID19 Pending 06/30/2021 06/30/2021 06/30/2021 10:43 PM POSTPARTUM RN documented as of this encounter Care Teams Surveyor Hydrographic Relationship Specialty Start Date End Date Elsewhere, Pcp PCP - General Family Medicine 03/10/20 11/30/21 Ervin Schroeder MD Referring Provider Family Medicine 03/24/211979 [address] [place] [address] documented as of this encounter
--- OUTSIDE RECORDS SUMMARY | 2022-02-10 09:41 | XMS_ITS | Encounter Summary ---
:1990 Author Organization [facility] Address [address] [place] [address] Care Team Providers Name Role Phone Elsewhere, Pcp Primary Care Provider Unavailable Encounter Details Date Type Department Care Team Description 07/06/2021 Documentation Department of Gastroenterology Myke Fish, in [place], [facility] joe LewisB.B.S [address] [facility] [address] [place] [phone] [place], [place] [phone] Social History Tobacco Use Types Packs/Day [...] you attend gnosticist or Patient refused 2021 judaism services? 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 LEWARE DEVELOPER documented in this encounter Plan of Treatment Upcoming Encounters Date Type Specialty Care Team Description Virtual Visit Transplant Mousa, Elizabeth May, MJules 1025 [place] [address] 2 Rain Reyes R.N. [address] [place] [phone] Telemedicine Transplant LinaFederico 2 Brigid noyola M.D. [address] [place] [phone] Office Visit [facility], 2 Medicine Vernell Perez [address] [place] [address] [phone] Lab Laboratory Medicine Karin, 2 Adeline Gannon M.D., Ph.D. [address] [place] [phone] Lab Laboratory Medicine Karin, 2 Adeline Gannon M.D., Ph.D. [address] [place] [phone] Office Visit Transplant Karin, 2 Adeline Gannon M.D., Ph.D. [address] [place] [phone] Appointment Radiology Matthew Jerome 2, M.B.B.S., Lilian [address] [place] [phone] Appointment Gastroenterology and Adrianne, 2 Hepatology Yue Burciaga M.D. [address] [place] [phone] Office Visit Gastroenterology and Matthew Jerome 2 Hepatology Tyrell Rodriguez, Lilian [address] [place] [phone] Appointment Radiology LuisMatthew abdul 2 YTyrell M.D. [address] [place] [phone] Hospital Gastroenterology and [facility] Matthew Cirrhos is Alcoholic (HCC) 2 Encounter Hepatology Tyrell Rodriguez M.D. [address] [place] [address] [phone] Anesthesia Event Gastroenterology and Rl, 2 Hepatology Ervin Burgos M.D. [address] [place] [address] [phone] Surgery Gastroenterology and Michantell Matthew ESOPHAG OGASTRODUODENOSCOPY 2 Hepatology Tyrell Rodriguez M.D. [address] [place] [phone] Scheduled Procedures Name Priority Associated Diagnoses Date/Time ESOPHAGOGASTRODUODENOSCOPY Cirrhosis Alc oholic (HCC) 03/20/2022 8:45 AM MIDDLEWARE DEVELOPER Hypertension Portal (HCC) documented as of this encounter Visit Diagnoses Not on filedocumented in this encounter Care Teams Facility Maintenance Helper Relationship Specialty Start Date End Date Elsewhere, Pcp PCP - General Family Medicine 03/10/20 11/30/21 Ervin Schroeder MD Referring Provider Family Medicine 03/24/[address] [place] [phone] documented as of this encounter
--- OUTSIDE RECORDS SUMMARY | 2022-02-10 09:41 | XMS_ITS | Encounter Summary ---
:1990 Author Organization [facility] Address [address] [place] [address] Care Team Providers Name Role Phone Elsewhere, Pcp Primary Care Provider Unavailable Reason for Visit Auth/Cert Specialty Diagnoses / Procedures Referred By Contact Refer red To Contact Diagnoses Cirrhosis Alcoholic (HCC) Cirrhosis Alcoholic (HCC) [K70.30] Procedures OH EGD TRANSORAL DX ESOPHAGOGASTRODUODENOSCOPY Referral ID Status Reason Start Date Expiration Date Visits Requ ested Visits Authorized [id number] 1 1 Encounter Details Date Type Department Care Team Description 07/02/2021 Hospital Encounter Department of David Fish, Gastroenterology in M.B.B.[address] [place] [phone] Social History Tobacco Use Types Packs/Day Years [...] How often do you attend anabaptism or Patient refused 2021 jewish services? 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 [address] [place] [phone] Telemedicine Transplant [facility] 2 Brigid noyola M.D. [address] [place] [phone] Office Visit [facility], [facility] Internal [facility], 2 Medicine Vernell Perez [address] [place] [address] [phone] Lab Laboratory Medicine Karin, 2 Adeline Gannon M.D., Ph.D. [address] [place] [phone] Lab Laboratory Medicine Karin, 2 Adeline Gannon M.D., Ph.D. [address] [place] [phone] Office Visit Transplant Karin, 2 Adeline Gannon M.D., Ph.D. [address] [place] [phone] Appointment Radiology Matthew Jerome 2, M.B.B.S., Lilian 1025 [place] [address] Appointment Gastroenterology and Adrianne, 2 Hepatology Yue Burciaga M.D. [address] [place] [phone] Office Visit Gastroenterology and Matthew Jerome 2 Hepatology Tyrell Rodriguez M.D. [address] [place] [phone] Appointment Radiology LuisNew abdular 2 Tyrell Rodriguez M.D. [address] [place] [address] [phone] Hospital Gastroenterology and Matthew Jerome Cirrhos is Alcoholic (HCC) 2 Encounter Hepatology Tyrell Rodriguez M.D. [address] [place] [phone] Anesthesia Event Gastroenterology and Rl, 2 Hepatology Ervin Burgos M.D. [address] [place] [address] [phone] Surgery Gastroenterology and Matthew Jerome ESOPHAG OGASTRODUODENOSCOPY 2 Hepatology Tyrell Rodriguez M.D. [address] [place] [phone] Scheduled Procedures Name Priority Associated Diagnoses Date/Time ESOPHAGOGASTRODUODENOSCOPY Cirrhosis Alc oholic (HCC) 03/20/2022 8:45 AM POT OPERATOR Hypertension Portal (HCC) documented as of this encounter Visit Diagnoses Diagnosis Cirrhosis Alcoholic (HCC) - Primary Cirrhosis Alcoholic (HCC) Cirrhosis Alcoholic (HCC) Hypertension Portal (HCC) documented in this encounter Admitting Diagnoses Diagnosis Cirrhosis Alcoholic (HCC) documented in this encounter Care Teams Multiplex Operator Relationship Specialty Start Date End Date Elsewhere, Pcp PCP - General Family Medicine 03/10/20 11/30/21 Ervin Schroeder MD Referring Provider Family Medicine 03/24/[address] [place] [address] [place] [address] documented as of this encounter
--- OUTSIDE RECORDS SUMMARY | 2022-02-10 09:41 | XMS_ITS | Encounter Summary ---
:1990 Author Organization [facility] Address [address] [place] [address] Care Team Providers Name Role Phone Elsewhere, Pcp Primary Care Provider Unavailable Encounter Details Date Type Department Care Team Description 07/06/2021 Orders Only Department of Gastroenterology Jennifer Fish, in [place], [facility] M.B.B.S. 1025 [facility] 1025 [place] [address] [place], [place] [phone] (Wo rk) Social History Tobacco Use [...] you attend pentecostal or Patient refused 2021 islam services? 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 [address] [place] [phone] Telemedicine Transplant LinaFederico 2 Brigid noyola M.D. [address] [place] [phone] Office Visit Community Internal Neda, 2 Medicine Vernell Perez 300 [place] [address] Lab Laboratory Medicine Karin, 2 Adeline Gannon M.D., Ph.D. [address] [place] [phone] Lab Laboratory Medicine Karin Olinda Adeline Gannon M.D., Ph.D. [address] [place] [phone] Office Visit Transplant Karin, Olinda Adeline Gannon M.D., Ph.D. [address] [place] [phone] Appointment Radiology Matthew Jerome 2 YJoshuaB.B.SSuma, Lilian [address] [place] [phone] Appointment Gastroenterology and Adrianne, 2 Hepatology Yue Burciaga M.D. [address] [place] [phone] Office Visit Gastroenterology and Matthew Jerome 2 Hepatology Joshua RodriguezB.B.Lilian Stockton [address] [place] [phone] Appointment Radiology Matthew Jerome 2 YElizabeth.B.B.SLilian Moise [address] [place] [phone] Hospital Gastroenterology and Matthew Jerome Cirrhos is Alcoholic (HCC) 2 Encounter Hepatology Elizabeth Rodriguez.B.B.SLilian Moise [address] [place] [phone] Anesthesia Event Gastroenterology and Rl, 2 Hepatology Ervin Burgos M.D. [address] [place] [phone] Surgery Gastroenterology and Mousa, Matthew ESOPHAG OGASTRODUODENOSCOPY 2 Hepatology Tyrell Rodriguez M.D. 1025 [place] [phone] Scheduled Procedures Name Priority Associated Diagnoses Date/Time ESOPHAGOGASTRODUODENOSCOPY Cirrhosis Alc oholic (HCC) 03/20/2022 8:45 AM BYPRODUCTS SUPERVISOR Hypertension Portal (HCC) documented as of this encounter Visit Diagnoses Not on filedocumented in this encounter Additional Health Concerns Infection Onset Date Last Indicated Resolved Time COVID19 Pending 07/06/2021 07/06/2021 07/06/2021 11:34 AM BYPRODUCTS SUPERVISOR documented as of this encounter Care Teams Placement Manager Relationship Specialty Start Date End Date Elsewhere, Pcp PCP - General Family Medicine 03/10/20 11/30/21 Ervin Schroeder MD Referring Provider Family Medicine 03/24/[address] [place] [phone] documented as of this encounter
--- OUTSIDE RECORDS SUMMARY | 2022-02-10 09:41 | XMS_ITS | Encounter Summary ---
:1990 Author Organization [facility] Address [address] [place] [address] Care Team Providers Name Role Phone Elsewhere, Pcp Primary Care Provider Unavailable Encounter Details Date Type Department Care Team Description 06/26/2021 Orders Only Department of [place], Cirrhosis Alco holic Gastroenterology in [facility], ([facility]) (P rimary Dx) [place], [place] P.Jim, M.S. [address] [facility] 1025 [place] [address] [place], [place] [phone] Social History Tobacco Use Types Packs/Day [...] you attend islam or Patient refused 2021 uatsdin services? 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 [address] [place] [phone] Telemedicine Transplant LinaFederico 2 Brigid noyola M.D. [address] [place] [phone] Office Visit Community Internal Neda, 2 Solitario Perez P.A.-C. 300 [place] [phone] Lab Laboratory Medicine Karin, 2 Adeline Gannon M.D., Ph.D. [address] [place] [phone] Lab Laboratory Medicine Olinda Frazier M.D., Ph.D. [address] [place] [phone] Office Visit Transplant Olinda Frazier M.D., Ph.D. [address] [place] [phone] Appointment Radiology Matthew Jerome 2 YVikBLilian Bedolla [address] [place] [phone] Appointment Gastroenterology and Adrianne, 2 Hepatology Yue Burciaga M.D. [address] [place] [phone] Office Visit Gastroenterology and Matthew Jerome 2 Hepatology Joshua RodriguezBSumaBLilian Bedolla [address] [place] [phone] Appointment Radiology Matthew Jerome 2 YElizabeth.B.B.Lilian Stockton [address] [place] [phone] Hospital Gastroenterology and Matthew Jerome Cirrhos is Alcoholic (HCC) 2 Encounter Hepatology Joshua RodriguezBSumaBLilian Bedolla [address] [place] [phone] Anesthesia Event Gastroenterology and Rl, 2 Hepatology Ervin Burgos M.D. [address] [place] [phone] Surgery Gastroenterology and Mousa, Matthew ESOPHAG OGASTRODUODENOSCOPY 2 Hepatology Tyrell Rodriguez M.D. [address] [place] [phone] Scheduled Procedures Name Priority Associated Diagnoses Date/Time ESOPHAGOGASTRODUODENOSCOPY Cirrhosis Alc oholic (HCC) 03/20/2022 8:45 AM WEB PAGE DESIGNER Hypertension Portal (HCC) documented as of this encounter Results (ABNORMAL) Prothrombin Time (PT) (06/30/2021 2:27 PM WEB PAGE DESIGNER) [facility] Method Time Signature Prothrombin 26.7 (H) 9.4 - 12.5 06/30/2021 MKTO Time, P sec 3:02 PM WEB PAGE DESIGNER INR 2.3 0.9 - 1.1 06/30/2021 MKTO 3:02 PM WEB PAGE DESIGNER Comment: ----ADDITIONAL INFORMATION---- Standard intensity warfarin therapeutic range: 2.0 to 3.0 ?? High intensity warfarin therapeutic rang e: 2.5 to 3.5 Specimen Anatomical Collection Method Collection Time Receive d Time (Source) Location / / Volume Laterality Blood (Blood, 06/30/2021 2:27 PM 06/30/19 2:46 Venous) WEB PAGE DESIGNER PM WEB PAGE DESIGNER Authorizing Provider Result Woodrow Molina P.A.-C., M.S. LAB BLOOD ADD-ON Performing Organization Address City/State/ZIP Code Phon e Number [facility]- [address] [place] [id number] [place] [address] System [address] documented in this encounter Visit Diagnoses Diagnosis Cirrhosis Alcoholic (HCC) - Primary Cirrhosis Alcoholic (HCC) Cirrhosis Alcoholic (HCC) Hypertension Portal (HCC) documented in this encounter Care Teams Machined Parts Quality Inspector Relationship Specialty Start Date End Date Elsewhere, Pcp PCP - General Family Medicine 03/10/20 11/30/21 Ervin Schroeder MD Referring Provider Family Medicine 03/24/21[address] [facility] [address] documented as of this encounter
--- OUTSIDE RECORDS SUMMARY | 2022-02-10 09:41 | XMS_ITS | Encounter Summary ---
:[address] [facility] Address [address] [place] [address] Care Team Providers Name Role Phone Elsewhere, Pcp Primary Care Provider Unavailable Encounter Details Date Type Department Care Team Description 06/30/2021 Clinical Communication Department of Kerry Naranjo Gastroenterology in [place], [place] C.N.P., M.S.N. 1025 [facility] 1025 [place] [address] [place], [place] [phone] Social History Tobacco Use Types Packs/Day [...] you attend moravian or Patient refused 2021 anglican services? 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 - 07/01/2021 4:12 PM CST Noted. SS REP Telephone Encounter - Ellen Stevens R.N. - 07/01/2021 4:11 PM CST Please see message related to when pt is scheduled for FFP pre-EGD. Thanks, Ellen Stevens, RN, OCN SS REP Telephone Encounter - Ruth Jeter - 07/01/2021 3:48 PM CST Pt has been scheduled 07/02 @ 1000. Pt is aware. SS REP Telephone Encounter - Ellen Stevens RGabby - [...] their department. Thanks, Ellen Stevens RN, OCN SS REP Telephone Encounter - Kerry Naranjo APRN, C.N.P., M.S.N. - 07/01/2021 11:47 AM CST Signed pended orders for transfusion of 2 units FFP with protocol and post transfusion INR SS REP Telephone Encounter - Felicita Spicer L.P.N. - [...] had no further questions at this time. SS REP Telephone Encounter - Kerry Naranjo APRN, C.N.P., [...] the above above arrangements. Thank you, Kerry SS REP documented in this encounter Plan of Treatment Upcoming Encounters Date Type Specialty Care Team Description Virtual Visit Transplant Matthew Jerome M .B.B.S., M.D. [address] [place] [phone] 2 Rain Reyes R.N. [address] [place] [phone] Telemedicine Transplant LinaFederico 2 Brigid noyola M.D. [address] [place] [address] [phone] Office Visit [facility] Internal Carlos, 2 Solitario Perez P.A.-C. 300 [place] [phone] Lab Laboratory Medicine Karin, 2 Adeline Gannon M.D., Ph.D. [address] [place] [address] [phone] Lab Laboratory Medicine Olinda Frazier M.D., Ph.D. [address] [place] [phone] Office Visit Transplant Karin, 2 Adeline Gannon M.D., Ph.D. [address] [place] [address] [phone] Appointment Radiology Matthew Jerome 2 YVikBGraeme, Lilian [address] [place] [address] [phone] Appointment Gastroenterology and Adrianne, 2 Hepatology Yue Burciaga M.D. [address] [place] [address] [phone] Office Visit Gastroenterology and Matthew Jerome 2 Hepatology Vik RodriguezBLilian Bedolla [address] [place] [phone] Appointment Radiology Matthew Jerome 2 YJoshuaBSumaB.Kath, Lilian [address] [place] [phone] Hospital Gastroenterology and Queenie Matthew Cirrhos is Alcoholic (HCC) 2 Encounter Hepatology Joshua RodriguezB.B.Lilian Stockton [address] [place] [phone] Anesthesia Event Gastroenterology and Rl, 2 Hepatology Ervin Burgos M.D. [address] [place] [address] [phone] Surgery Gastroenterology and Matthew Jerome ESOPHAG OGASTRODUODENOSCOPY 2 Hepatology Joshua RodriguezB.BLilian Bedolla [address] [place] [phone] Scheduled Procedures Name Priority Associated Diagnoses Date/Time ESOPHAGOGASTRODUODENOSCOPY Cirrhosis Alc oholic (HCC) 03/20/2022 8:45 AM ACCESS REP Hypertension Portal (HCC) documented as of this encounter Results (ABNORMAL) Prothrombin Time (PT) (07/02/2021 1:22 PM ACCESS REP) [facility] gist Method Time Signature Prothrombin 24.6 (H) 9.4 - 12.5 07/02/2021 MKTO Time, P sec 1:39 PM ACCESS REP INR 2.2 0.9 - 1.1 07/02/2021 MKTO 1:39 PM ACCESS REP Comment: ----ADDITIONAL INFORMATION---- Standard intensity warfarin therapeutic range: 2.0 to 3.0 ?? High intensity warfarin therapeutic rang e: 2.5 to 3.5 Specimen Anatomical Collection Method Collection Time Receive d Time (Source) Location / / Volume Laterality Blood (Blood, 07/02/2021 1:22 PM 07/03/19 1:31 Venous) ACCESS REP PM ACCESS REP Kerry Naranjo APRN, C.N.P., M.S.N. LAB BLOOD ADD-ON Performing Organization Address City/State/ZIP Code Phon e Number [facility] [address] [place] [address] [place] [address] System in [place] [address] [place] [address] documented in this encounter Visit Diagnoses Diagnosis Cirrhosis Alcoholic (HCC) - Primary Thrombocytopenia (HCC) Splenomegaly Acquired Hypertension Portal (HCC) Cirrhosis Alcoholic (HCC) Cirrhosis Alcoholic (HCC) Hypertension Portal (HCC) documented in this encounter Additional Health Concerns Infection Onset Date Last Indicated Resolved Time COVID19 Pending 06/30/2021 06/30/2021 06/30/2021 10:43 PM ACCESS REP documented as of this encounter Care Teams Director Of Advertising Sales Relationship Specialty Start Date End Date Elsewhere, Pcp PCP - General Family Medicine 03/10/20 11/30/21 Ervin Schroeder MD Referring Provider Family Medicine 03/24/211979 [address] [place] [address] documented as of this encounter
--- OUTSIDE RECORDS SUMMARY | 2022-02-10 09:42 | XMS_ITS | Encounter Summary ---
:1990 Author Organization [facility] Address [address] [place] [address] Care Team Providers Name Role Phone Elsewhere, Pcp Primary Care Provider Unavailable Reason for Referral Outpatient (Routine) - Closed Specialty Diagnoses / Referred By Contact Referred To Procedures Contact [facility] Lowell VIGILNDayne, M.S.N. [facility] [place] [phone] Referral ID Status Reason Start Date Expiration Date Visits Requ ested Visits Authorized [id number] Closed 04/17/2021 04/17/2022 1 1 RINTENDENT RECREATION Reason for Visit Outpatient (Routine) - Closed Specialty Diagnoses / Referred By Contact Referred To Procedures Contact Kerry Mosquera [facility] Hepatology Katrin VIGIL.Lidia, M.S.N. [address] [place] [phone] Referral ID Status Reason Start Date Expiration Date Visits Requ ested Visits Authorized [id number] Closed 03/15/2021 03/15/2022 1 1 Encounter Details Date Type Department Care Team Description 04/17/2021 Office Visit Department of Kerry Naranjo Cirrhosis Alc oholic (HCC) (Primary Dx); Gastroenterology in [place], [place], Thromboc ytopenia (HCC); [place], [place] C.N.P., Splenomegaly Acquired; 1025 [facility] M.S.N. Deficiency Vitamin D; [place] [phone] 1025 [facility] Deficiency Vitamin A; [phone] [place], [place] Hypertension Po rtal (HCC); [address] Ascites; [phone] Jaundice; (Work) Malnutrition Protein-Calorie Unspecified (HCC) Social History Tobacco Use Types Packs/Day [...] you attend sikhism or Patient refused 2021 adventism services? Do [...] Date Recorded Female 04/12/2021 7:39 PM SUPERINTENDENT RECREATION documented as of this encounter Last Filed Vital Signs Vital Sign Reading Time Taken Comments Blood Pressure 100/60 04/17/2021 3:20 PM SUPERINTENDENT RECREATION Pulse 80 04/17/2021 3:20 PM SUPERINTENDENT RECREATION Temperature - - Respiratory Rate - - Oxygen Saturation - - Inhaled Oxygen Concentration - - Weight 50.3 kg (110 lb 14.3 oz) 04/17/2021 3:20 PM SUPERINTENDENT RECREATION Height 157.5 cm (5' 2.01) 04/17/2021 3:20 PM SUPERINTENDENT RECREATION Body Mass Index 20.28 04/17/2021 3:20 PM SUPERINTENDENT RECREATION documented in this encounter Patient Instructions Patient InstructionsKerry Naranjo APRN, C.N.Shanita., M.S.N. - 04/17/2021 3:30 PM CST -EGD/MAC. 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 - 04/17/2021 3:30 PM CST Kerry Naranjo APRN, C.N.P., M.S.N. [address] [place] [address] Patient Name: Catia Carias Date of : [...] primary care provider Dr. Ervin Schroeder, from [facility] in [facility]; phone [phone], . She stateshe prescribed vitamin-D for GERD [...] She also was instructed to contact her [facility] to sign BIANKA as unable to [...] care as described above. Kerry Naranjo APRN, C.NLala., M.S.N. Gastroenterology and Hepatology [facility] RINTENDENT RECREATION documented in this encounter Plan of Treatment Upcoming Encounters Date Type Specialty Care Team Description Virtual Visit Transplant Matthew Jerome M .B.B.S., MJules [address] [place] [phone] 2 Rain Reyes R.N. [address] [place] [place] [phone] Telemedicine Transplant Ashtyn 2 Brigid noyola M.D. [address] [place] [phone] Office Visit Community Internal Deanovic, 2 Medicine Vernell Perez 300 [place] [phone] Lab Laboratory Medicine Karin, 2 Adeline Gannon M.D., Ph.D. [address] [place] [phone] Lab Laboratory Medicine Karin, 2 Adeline Gannon M.D., Ph.D. [address] [place] [phone] Office Visit Transplant Karin, 2 Adeline Gannon M.D., Ph.D. [address] [place] [phone] Appointment Radiology Matthew Jerome 2, M.B.B.SSuma, M.Jeri [address] [place] [phone] Appointment Gastroenterology and Adrianne, 2 Hepatology Yue Burciaga M.D. [address] [place] [phone] Office Visit Gastroenterology and Matthew Jerome 2 Hepatology Joshua RodriguezBSumaB.SSuma, Lilian [address] [place] [phone] Appointment Radiology Matthew Jerome 2 Tyrell Rodriguez, Lilian [address] [place] [address] [phone] Hospital Gastroenterology and Matthew Jerome Cirrhos is Alcoholic (HCC) 2 Encounter Hepatology Tyrell Rodriguez M.D. [address] [place] [phone] Anesthesia Event Gastroenterology and [facility], 2 Hepatology Ervin Burgos M.D. [address] [place] [phone] Surgery Gastroenterology and Matthew Jerome ESOPHAG OGASTRODUODENOSCOPY 2 Hepatology Tyrell Rodriguez M.D. [address] [place] [address] [phone] Scheduled Procedures Name Priority Associated Diagnoses Date/Time ESOPHAGOGASTRODUODENOSCOPY Cirrhosis Alc oholic (HCC) 03/20/2022 8:45 AM SUPERINTENDENT RECREATION Hypertension Portal (HCC) Scheduled Referrals Name Type Priority Associated Order Schedule Diagnoses Gastroenterology and Outpatient Routine Expecte d: Hepatology office visit Referral 04/02 (clinic) (Approximate), Expires: 07/16/2022 documented as of this encounter Visit Diagnoses Diagnosis Cirrhosis Alcoholic (HCC) - Primary Thrombocytopenia (HCC) Splenomegaly Acquired Deficiency Vitamin D Deficiency Vitamin A Hypertension Portal (HCC) Ascites Jaundice Malnutrition Protein-Calorie Unspecified (HCC) Cirrhosis Alcoholic (HCC) Cirrhosis Alcoholic (HCC) Hypertension Portal (HCC) documented in this encounter Care Teams Drug Enforcement Agent Relationship Specialty Start Date End Date Elsewhere, Pcp PCP - General Family Medicine 03/10/20 11/30/21 Ervin Schroeder MD Referring Provider Family Medicine 03/24/[address] [place] [address], [place] [address] documented as of this encounter
--- OUTSIDE RECORDS SUMMARY | 2022-02-10 09:43 | XMS_ITS | Encounter Summary ---
:1990 Author Organization [facility] Address [address] [place] [address] Care Team Providers Name Role Phone Elsewhere, Pcp Primary Care Provider Unavailable Reason for Referral Outpatient (Routine) - Closed Specialty Diagnoses / Referred By Contact Referred To Procedures Contact [facility] Katrin VIGIL.NDayne, M.S.N. [address] [place] [phone] Referral ID Status Reason Start Date Expiration Date Visits Requ ested Visits Authorized [id number] Closed 03/15/2021 03/15/2022 1 1 OR QUALITY SUPERVISOR Reason for Visit Auth/Cert Specialty Diagnoses / Procedures Referred By Contact Refer red To Contact Diagnoses Change Mental Status Liver failure Procedures Referral ID Status Reason Start Date Expiration Date Visits Requ ested Visits Authorized [id number] 1 1 Encounter Details Date Type Department Care Team Description 03/12/2021 - Hospital Encounter [facility] Antwan Lazo, JeriO. [address] [place] [phone] Change Mental Status (Primary Dx); 03/24/2021 [facility] Ulises Griffith M.B.B.S. [address] [place] [phone] Cirrhosis Alcoholic (HCC) [facility]Jamar Ivaylo, M.D. [address] [place] [phone] [place] [phone] Social History Tobacco Use Types Packs/Day [...] you attend episcopal or Patient refused 2021 denominational services? Do [...] Date Recorded Female 04/12/2021 7:39 PM VENDOR QUALITY SUPERVISOR documented as of this encounter Last Filed Vital Signs Vital Sign Reading Time Taken Comments Blood Pressure 114/84 03/24/2021 6:18 AM VENDOR QUALITY SUPERVISOR Pulse 101 03/24/2021 6:18 AM VENDOR QUALITY SUPERVISOR Temperature 37.5 ??C (99.5 ??F) 03/24/2021 6:18 AM VENDOR QUALITY SUPERVISOR Respiratory Rate 16 03/23/2021 10:36 PM VENDOR QUALITY SUPERVISOR Oxygen Saturation 97% 03/24/2021 6:18 AM VENDOR QUALITY SUPERVISOR Inhaled Oxygen Concentration - - Weight 56.6 kg (124 lb 12.5 oz) 03/23/2021 6:35 AM VENDOR QUALITY SUPERVISOR Height 157.5 cm (5' 2) 03/12/2021 6:15 AM VENDOR QUALITY SUPERVISOR Body Mass Index 22.82 03/12/2021 6:15 AM VENDOR QUALITY SUPERVISOR documented in this encounter Discharge Summaries Darian Thomas M.D., J.D. - 03/24/2021 8:11 AM CST DISCHARGE SUMMARY BRIEF OVERVIEW Discharge Hospital: Hospital: [facility] Discharge Provider: No att. providers found Primary Care Providers: Elsewhere, Pcp (General) No address on file Discharge Provider Team: [facility] Internal Medicine (HIM) [facility] Primary Care Provider Phone Number: None [...] on CT scan. Newly diagnosed PFO with qzklr-[id number] atrial shunt. Severe left atrial enlargement. Consider [...] consider having patient follow up with a rock loader in the outpatient setting. MEDICATIONS CHANGED DURING [...] staffed with Dr. Guzman. Darian Thomas MD, [facility] Family Medicine Residency OR QUALITY SUPERVISOR Associated attestation - Keerthi Guzman M.D. - 03/25/2021 7:48 AM VENDOR QUALITY SUPERVISOR I saw the patient on the day [...] encounter Discharge Instructions Discharge Instr - Non Loda Follow-UpsHope Keating - 03/24/2021 10:30 AM VENDOR QUALITY SUPERVISOR Post Hospital follow-up Dr. Schroeder on: Monday, March 26 at 9:[address] [address] Gastroenterology and Hepatology consult with Dr. Kerry Naranjo on: April 17, 2021 at 3:15pm [address] [address] OR QUALITY SUPERVISOR documented in this encounter Medications at Time [...] Cirrhosis Alcoholic (HCC) ASSESSMENT / PLAN ASSESSMENT cash applications manager participated in bedside team rounds with bedside nurse Hope LEROY and Dr. Guzman. Patient was cleared to discharge Julissa Hart [facility] states there are no needs and no f/u needed for mental health as an outpatient. Dr. Guzman reports patient will be ready for discharge on 03-24-21. Patient will discharge to home on 03-24-21. S.O. will provide transportation at approximately 1200. PLAN 1. Care team reporting patient is expected to discharge home when medically stable. 2. There are no identified case supervisor needs at this time. 3. regional service manager will assist as needed and requested. Nola Marcos R.N. 03/24/21 OR QUALITY SUPERVISOR Zenobia Dickson, Pharm.D., R.Ph. - 03/23/2021 4:13 [...] oral SBP prophylaxis Zenobia Dickson Pharm.D., R.Ph. OR QUALITY SUPERVISOR Darian Thomas M.D., J.D. - 03/23/2021 7:25 [...] Dr. Guzman. Darian Thomas MD [facility] Residency OR QUALITY SUPERVISOR Associated attestation - Keerthi Guzman M.D. - 03/23/2021 2:26 PM VENDOR QUALITY SUPERVISOR I saw and evaluated the patient, participating [...] insist that she saw a nurse and correctional supervisor lieutenant friend of hers, Stephanie. She says this [...] spent in counseling and coordination of care. OR QUALITY SUPERVISOR Associated attestation - Desire Ram M.B.B.S., M.D. - 03/25/2021 11:28 PM VENDOR QUALITY SUPERVISOR I saw and evaluated the patient, participating in the judd portions of the service. I reviewed the JAN's note. I agree with the APPs findings and plan. Darian Thomas M.D., JCee. - 03/22/2021 10:18 AM CST SUBJECTIVE INTERVAL [...] Dr. Guzman. Darian Thomas MD [facility] Residency OR QUALITY SUPERVISOR Associated attestation - Keerthi Guzman M.D. - 03/22/2021 3:19 PM VENDOR QUALITY SUPERVISOR I saw and evaluated the patient, participating [...] PERTINENT LABS: Last 2 results Lab Units 03/21/2144 03/20/21223103/20/2140 03/19/21 0739 BUN P mg/dL 4* 4* 4* 6 PHOSPHORUS INORGANIC P mg/dL -- -- 3.1 1.8* CREATININE P mg/dL 0.38* 0.43* 0.35* 0.33* Last 3 results Lab Units 03/21/21 0544 03/20/21223103/20/21 0740 03/19/21 1504 03/19/21 0739 SODIUM P mmol/L [...] Monitoring/Evaluation Monitoring: Meals/Supplement Intake,Weight Status,Mental Status/Confusion,Nausea/Vomiting/Diarrhea,Pertinent Labs OR QUALITY SUPERVISOR Darian Thomas M.D., J.Jeri - 03/21/2021 12:16 [...] considered holdable if she decides to leave [place] --cont. Zyprexa 5 mg q.h.s. p.r.n. per [...] Dr. Guzman. Darian Thomas MD [facility] Residency OR QUALITY SUPERVISOR Associated attestation - Keerthi Guzman M.D. - 03/21/2021 2:26 PM VENDOR QUALITY SUPERVISOR I saw and evaluated the patient, participating [...] and happy to accept patient to the [facility] once medically stable --per psych, [...] Dr. Guzman. Darian Thomas MD [facility] Residency OR QUALITY SUPERVISOR Associated attestation - Keerthi Guzman M.D. - 03/20/2021 12:10 PM VENDOR QUALITY SUPERVISOR I saw and evaluated the patient, participating [...] discharge: oral SBP prophylaxis Paco Shah, PharmD, [facility]. OR QUALITY SUPERVISOR Bernarda Manning APRN, C.N.P., D.N.P. - 03/19/2021 [...] last night. He says these woman working [place] and would not have been in the [...] Daily Given, 5 mg at 03/19 135 prhhbujtb-[id number] 280-160-250 mg per packet 2 packet (PHOS-NAK) [...] ideations: Denies homicidal ideation ASSESSMENT / PLAN Catai Carias is a 30 y.o. female With [...] considered holdable if she decides to leave [place] without a safe discharge plan in place. - Will continue to follow and reassess the need for inpatient psychiatry once she is more medically stable, and the encephalopathy has resolved. ?? ADMINISTRATIVE BILLING Total time is 35 minutes with greater than 25 minutes spent in counseling and coordination of care. OR QUALITY SUPERVISOR Darian Thomas M.D., J.D. - 03/19/2021 1:41 [...] Dr. Guzman. Darian Thomas MD [facility] Residency OR QUALITY SUPERVISOR Associated attestation - Keerthi Guzman M.D. - 03/19/2021 7:11 PM VENDOR QUALITY SUPERVISOR I saw and evaluated the patient, participating [...] oral SBP prophylaxis Virginie Valerio, PharmSumaD., R.Ph. OR QUALITY SUPERVISOR Sofi Tomlin RDN, TALI - 03/18/2021 2:36 [...] not eaten yet this morning and encouraged insurance writer to allow pt to rest as [...] 57 kg BMI (Calculated): 23 kg/m?? % [place] Body Weight: 108 % IBW Adjusted Body [...] EVALUATION: Nutrition Monitoring/Evaluation Monitoring: Meals/Supplement Intake,Nausea/Vomiting/Diarrhea,Pertinent Labs OR QUALITY SUPERVISOR Paco Shah, Pharm.D., R.Ph. - 03/18/2021 11:03 [...] oral SBP prophylaxis Virginie Valerio, Pharm.D., R.Ph. OR QUALITY SUPERVISOR Darian Thomas M.D., J.D. - 03/18/2021 10:08 [...] staffed with Dr. Valle. Darian Thomas MD [facility] Residency OR QUALITY SUPERVISOR Associated attestation - Ulises Valle M.B.B.S. - 03/20/2021 12:12 PM VENDOR QUALITY SUPERVISOR I saw and evaluated the patient, participating [...] -- Take 50 mg by mouth daily. OR QUALITY SUPERVISOR Junaid Cast M.D. - 03/17/2021 3:02 PM [...] M.B.B.S. Junaid Cast M.D. PGY1 [facility] OR QUALITY SUPERVISOR Associated attestation - Ulises Valle M.B.B.S. - 03/18/2021 6:06 PM VENDOR QUALITY SUPERVISOR I saw and evaluated the patient, participating [...] Procedure Component Value - Date/Time Gram Stain [[id number]] Collected: 03/12/21 1546 Lab Status: Final result Specimen: Peritoneal Fluid Updated: 03/12/21 1822 Gram Stain No organisms seen. White blood cells present. Stain performed on concentrated cytospin preparation. Bacterial Culture, Anaerobic + Susc [[id number]] Collected: 03/12/21 1546 Lab Status: In process Specimen: Peritoneal Fluid Updated: 03/12/21 1548 Bacterial Culture, Aerobic + Susc [[id number]] Collected: 03/12/21 1546 Lab Status: Preliminary result Specimen: Peritoneal Fluid Updated: 03/13/21 1129 Bacterial Culture, Aerobic + Susc No growth to date Bacterial Culture, Aerobic + Susc [[id number]] Collected: 03/12/21 1234 Lab Status: Preliminary result Specimen: Pleural Fluid, Right Updated: 03/13/21 1133 Bacterial Culture, Aerobic + Susc No growth to date Bacterial Culture, Anaerobic + Susc [[id number]] Collected: 03/12/21 1234 Lab Status: In process Specimen: Pleural Fluid, Right Updated: 03/12/21 1308 Gram Stain [[id number]] Collected: 03/12/21 1234 Lab Status: Final result Specimen: Pleural Fluid, Right Updated: 03/12/21 1646 Gram Stain No organisms seen. White blood cells present. Stain performed on concentrated cytospin preparation. Gram Stain [[id number]] Collected: 03/12/21 1234 Lab Status: No result Specimen: Pleural Fluid, Right SARS Coronavirus-2 RNA, V Symptomatic [[id number]] Collected: 03/12/21 1100 Lab Status: Final result [...] was performed using the Aptima SARS-CoV-2 assay ([facility] on the Skip Hop System under emergency use authorization (EUA) by the U.S. Food and Drug Administration. Fact sheets for this EUA assay can be found at the following links: For Healthcare Providers: https://www.fda.gov/media/028859/download For Patients: https://www.fda.gov/media/092226/download Influenza A/B and RSV, PCR, Varies [[id number]] Collected: 03/12/21 1100 Lab Status: Final result Specimen: Varies from Nasopharynx Updated: 03/13/21 1155 Influenza A/B and RSV, Source Swab, Nasopharynx Influenza A, PCR Undetected Comment: Influenza A RNA absent. Influenza B, PCR Undetected Comment: Influenza B RNA absent. Respiratory Syncytial Virus, PCR Undetected Comment: RSV RNA absent. ----ADDITIONAL INFORMATION---- This test has been modified from the power grader operator's instructions. Its performance characteristics were determined by [facility] in a manner consistent with CLIA requirements. This test has not been cleared or approved by the U.S. Food and Drug Administration. Bacteria / Raudel Culture, Blood #2 [[id number]] Collected: 03/12/21 0710 Lab Status: Preliminary result Specimen: Blood, Peripheral Draw Updated: 03/13/21 0805 Bacteria/Raudel Culture, Blood No growth to date. MRSA PCR, Nasal [[id number]] Collected: 03/12/21622 Lab Status: Final result Specimen: Swab from Nares Updated: 03/12/21 1050 MRSA Screen, Nasal by PCR Negative Hepatitis B Surface Antigen [[id number]] Collected: 03/12/21557 Lab Status: Final result Specimen: Blood, Peripheral Draw Updated: 03/12/21 0744 HBs Antigen, S Nonreactive Comment: Biotin has been identified by the power grader operator as a potential interfering substance. Higher concentrations of biotin may be found in multivitamins, hair/nail supplements, and workout supplements. If the result does not match clinical observations, repeat testing after patient refrains from the use of supplements for at least 12 hours. Hepatitis B Core IgM Ab [[id number]] Collected: 03/12/21557 Lab Status: Final result Specimen: Blood, Peripheral Draw Updated: 03/13/21 09 HBc IgM Ab, S Negative Hepatitis A IgM Ab, Serum [[id number]] Collected: 03/12/21557 Lab Status: Final result Specimen: Blood, Peripheral Draw Updated: 03/13/21 0951 Hepatitis A IgM Ab, S Negative Comment: Result does not exclude the possibility of exposure to hepatitis A virus. Antibody level during early infection stage may be below the limit of detection of the assay. HCV Ab w/Reflex to HCV PCR, Serum [[id number]] Collected: 03/12/21557 Lab Status: Final result Specimen: Blood, Peripheral Draw Updated: 03/13/21 09 HCV Ab, S Negative Comment: Fscqrt-iy-duyogn ratio is <1.00. Bacteria / Raudel Culture, Blood #1 [[id number]] Collected: 03/12/21556 Lab Status: Preliminary result Specimen: [...] out given to hospitalist. Lizet Navarro M.D. OR QUALITY SUPERVISOR Ulises Valle M.B.B.S. - 03/16/2021 5:30 PM [...] more details on the specifics ofthe plan. OR QUALITY SUPERVISOR Kerry Naranjo APRN, C.N.P., M.S.N. - 03/16/2021 [...] ICU attending. Kerry Naranjo APRN, Katrin.N.Frances, M.S.N. OR QUALITY SUPERVISOR Daron Cochran, PharmSumaD., R.Ph. - 03/16/2021 9:20 AM CST Pharmacist [...] Procedure Component Value - Date/Time Gram Stain [[id number]] Collected: 03/12/21 1540 Lab Status: Final result Specimen: Peritoneal Fluid Updated: 03/12/211821 Gram Stain No organisms seen. White blood cells present. Stain performed on concentrated cytospin preparation. Bacterial Culture, Anaerobic + Susc [[id number]] Collected: 03/12/21 1546 Lab Status: Preliminary result Specimen: Peritoneal Fluid Updated: 03/14/21 0523 Bacterial Culture, Anaerobic No growth to date. Bacterial Culture, Aerobic + Susc [[id number]] Collected: 03/12/21 1546 Lab Status: Preliminary result Specimen: Peritoneal Fluid Updated: 03/13/21 1129 Bacterial Culture, Aerobic + Susc No growth to date Bacterial Culture, Aerobic + Susc [[id number]] Collected: 03/12/21 1234 Lab Status: Preliminary result Specimen: Pleural Fluid, Right Updated: 03/13/21 1133 Bacterial Culture, Aerobic + Susc No growth to date Bacterial Culture, Anaerobic + Susc [[id number]] Collected: 03/12/21 1234 Lab Status: Preliminary result Specimen: Pleural Fluid, Right Updated: 03/14/21 0523 Bacterial Culture, Anaerobic No growth to date. Gram Stain [[id number]] Collected: 03/12/21 123 Lab Status: Final result Specimen: Pleural Fluid, Right Updated: 03/12/21 1646 Gram Stain No organisms seen. White blood cells present. Stain performed on concentrated cytospin preparation. Gram Stain [[id number]] Collected: 03/12/21 1234 Lab Status: No result Specimen: Pleural Fluid, Right SARS Coronavirus-2 RNA, V Symptomatic [[id number]] Collected: 03/12/21 1100 Lab Status: Final result [...] was performed using the Aptima SARS-CoV-2 assay ([employer] on the Skip Hop System under emergency use authorization (EUA) by the U.S. Food and Drug Administration. Fact sheets for this EUA assay can be found at the following links: For Healthcare Providers: https://www.fda.gov/media/704276/download For Patients: https://www.fda.gov/media/947078/download Influenza A/B and RSV, PCR, Varies [[id number]] Collected: 03/12/21 1100 Lab Status: Final result Specimen: Varies from Nasopharynx Updated: 03/13/21 1155 Influenza A/B and RSV, Source Swab, Nasopharynx Influenza A, PCR Undetected Comment: Influenza A RNA absent. Influenza B, PCR Undetected Comment: Influenza B RNA absent. Respiratory Syncytial Virus, PCR Undetected Comment: RSV RNA absent. ----ADDITIONAL INFORMATION---- This test has been modified from the power grader operator's instructions. Its performance characteristics were determined by [facility] in a manner consistent with CLIA requirements. This test has not been cleared or approved by the U.S. Food and Drug Administration. Bacteria / Raudel Culture, Blood #2 [[id number]] Collected: 03/12/21 0710 Lab Status: Preliminary result Specimen: Blood, Peripheral Draw Updated: 03/16/21 0805 Bacteria/Raudel Culture, Blood No growth to date. MRSA PCR, Nasal [[id number]] Collected: 03/12/21 0623 Lab Status: Final result Specimen: Swab from Nares Updated: 03/12/21 1050 MRSA Screen, Nasal by PCR Negative Hepatitis B Surface Antigen [[id number]] Collected: 03/12/21557 Lab Status: Final result Specimen: Blood, Peripheral Draw Updated: 03/12/21 0744 HBs Antigen, S Nonreactive Comment: Biotin has been identified by the power grader operator as a potential interfering substance. Higher concentrations of biotin may be found in multivitamins, hair/nail supplements, and workout supplements. If the result does not match clinical observations, repeat testing after patient refrains from the use of supplements for at least 12 hours. Hepatitis B Core IgM Ab [[id number]] Collected: 03/12/21557 Lab Status: Final result Specimen: Blood, Peripheral Draw Updated: 03/13/21911 HBc IgM Ab, S Negative Hepatitis A IgM Ab, Serum [[id number]] Collected: 03/12/21557 Lab Status: Final result Specimen: Blood, Peripheral Draw Updated: 03/13/21950 Hepatitis A IgM Ab, S Negative Comment: Result does not exclude the possibility of exposure to hepatitis A virus. Antibody level during early infection stage may be below the limit of detection of the assay. HCV Ab w/Reflex to HCV PCR, Serum [[id number]] Collected: 03/12/21 0558 Lab Status: Final result Specimen: Blood, Peripheral Draw Updated: 03/13/21 0925 HCV Ab, S Negative Comment: Fikrqp-gz-nvncgc ratio is <1.00. Bacteria / Raudel Culture, Blood #1 [[id number]] Collected: 03/12/21 0557 Lab Status: Preliminary result [...] medications anticipated at discharge: oral SBP prophylaxis Vigrinie Valerio, Pharm.D., R.Ph. OR QUALITY SUPERVISOR Lizet Navarro M.D. - 03/15/2021 1:19 PM [...] Procedure Component Value - Date/Time Gram Stain [[id number]] Collected: 03/12/21 1546 Lab Status: Final result Specimen: Peritoneal Fluid Updated: 03/12/21 1822 Gram Stain No organisms seen. White blood cells present. Stain performed on concentrated cytospin preparation. Bacterial Culture, Anaerobic + Susc [[id number]] Collected: 03/12/21 1546 Lab Status: In process Specimen: Peritoneal Fluid Updated: 03/12/21 1548 Bacterial Culture, Aerobic + Susc [[id number]] Collected: 03/12/21 1546 Lab Status: Preliminary result Specimen: Peritoneal Fluid Updated: 03/13/21 1129 Bacterial Culture, Aerobic + Susc No growth to date Bacterial Culture, Aerobic + Susc [[id number]] Collected: 03/12/21 1234 Lab Status: Preliminary result Specimen: Pleural Fluid, Right Updated: 03/13/21 1133 Bacterial Culture, Aerobic + Susc No growth to date Bacterial Culture, Anaerobic + Susc [[id number]] Collected: 03/12/21 1234 Lab Status: In process Specimen: Pleural Fluid, Right Updated: 03/12/21 1308 Gram Stain [[id number]] Collected: 03/12/21 1234 Lab Status: Final result Specimen: Pleural Fluid, Right Updated: 03/12/21 1646 Gram Stain No organisms seen. White blood cells present. Stain performed on concentrated cytospin preparation. Gram Stain [[id number]] Collected: 03/12/21 1234 Lab Status: No result Specimen: Pleural Fluid, Right SARS Coronavirus-2 RNA, V Symptomatic [[id number]] Collected: 03/12/21 1100 Lab Status: Final result [...] was performed using the Aptima SARS-CoV-2 assay ([employer] on the [employer] Hop System under emergency use authorization (EUA) by the U.S. Food and Drug Administration. Fact sheets for this EUA assay can be found at the following links: For Healthcare Providers: https://www.fda.gov/media/275634/download For Patients: https://www.fda.gov/media/981211/download Influenza A/B and RSV, PCR, Varies [[id number]] Collected: 03/12/21 1100 Lab Status: Final result Specimen: Varies from Nasopharynx Updated: 03/13/21 1155 Influenza A/B and RSV, Source Swab, Nasopharynx Influenza A, PCR Undetected Comment: Influenza A RNA absent. Influenza B, PCR Undetected Comment: Influenza B RNA absent. Respiratory Syncytial Virus, PCR Undetected Comment: RSV RNA absent. ----ADDITIONAL INFORMATION---- This test has been modified from the power grader operator's instructions. Its performance characteristics were determined by [facility] in a manner consistent with CLIA requirements. This test has not been cleared or approved by the U.S. Food and Drug Administration. Bacteria / Raudel Culture, Blood #2 [[id number]] Collected: 03/12/21 0710 Lab Status: Preliminary result Specimen: Blood, Peripheral Draw Updated: 03/13/21 0805 Bacteria/Raudel Culture, Blood No growth to date. MRSA PCR, Nasal [[id number]] Collected: 03/12/21 0623 Lab Status: Final result Specimen: Swab from Nares Updated: 03/12/21 1050 MRSA Screen, Nasal by PCR Negative Hepatitis B Surface Antigen [[id number]] Collected: 03/12/21557 Lab Status: Final result Specimen: Blood, Peripheral Draw Updated: 03/12/21 0744 HBs Antigen, S Nonreactive Comment: Biotin has been identified by the power grader operator as a potential interfering substance. Higher concentrations of biotin may be found in multivitamins, hair/nail supplements, and workout supplements. If the result does not match clinical observations, repeat testing after patient refrains from the use of supplements for at least 12 hours. Hepatitis B Core IgM Ab [[id number]] Collected: 03/12/21557 Lab Status: Final result Specimen: Blood, Peripheral Draw Updated: 03/13/21911 HBc IgM Ab, S Negative Hepatitis A IgM Ab, Serum [[id number]] Collected: 03/12/21557 Lab Status: Final result Specimen: Blood, Peripheral Draw Updated: 03/13/21950 Hepatitis A IgM Ab, S Negative Comment: Result does not exclude the possibility of exposure to hepatitis A virus. Antibody level during early infection stage may be below the limit of detection of the assay. HCV Ab w/Reflex to HCV PCR, Serum [[id number]] Collected: 03/12/21557 Lab Status: Final result Specimen: Blood, Peripheral Draw Updated: 03/13/21924 HCV Ab, S Negative Comment: Epcika-ho-jfbitr ratio is <1.00. Bacteria / Raudel Culture, Blood #1 [[id number]] Collected: 03/12/21556 Lab Status: Preliminary result Specimen: [...] care time 35 min Lizet Navarro M.D. OR QUALITY SUPERVISOR Kerry Naranjo, YARITZA, C.N.P., M.S.N. - 03/15/2021 12:41 PM CST SUBJECTIVE Catia Carias reports having no nausea, vomiting and abdominal pain. Her symptoms are improving.She no longer is intubated, with extubated yesterday afternoon. Discussed with her need for follow-up in the GI clinic with staff analyst; she is interested in that appointment I [...] Naranjo APRN, C.N.P., M.S.N. Gastroenterology and Hepatology [facility] OR QUALITY SUPERVISOR Daron Cochran, DSuma, R.Ph. - 03/15/2021 9:05 [...] Procedure Component Value - Date/Time Gram Stain [[id number]] Collected: 03/12/211545 Lab Status: Final result Specimen: Peritoneal Fluid Updated: 03/12/21 182 Gram Stain No organisms seen. White blood cells present. Stain performed on concentrated cytospin preparation. Bacterial Culture, Anaerobic + Susc [[id number]] Collected: 03/12/21 154 Lab Status: Preliminary result Specimen: Peritoneal Fluid Updated: 03/14/21 0523 Bacterial Culture, Anaerobic No growth to date. Bacterial Culture, Aerobic + Susc [[id number]] Collected: 03/12/21 1546 Lab Status: Preliminary result Specimen: Peritoneal Fluid Updated: 03/13/21 1129 Bacterial Culture, Aerobic + Susc No growth to date Bacterial Culture, Aerobic + Susc [[id number]] Collected: 03/12/21 1234 Lab Status: Preliminary result Specimen: Pleural Fluid, Right Updated: 03/13/21 1133 Bacterial Culture, Aerobic + Susc No growth to date Bacterial Culture, Anaerobic + Susc [[id number]] Collected: 03/12/214 Lab Status: Preliminary result Specimen: Pleural Fluid, Right Updated: 03/14/21 0523 Bacterial Culture, Anaerobic No growth to date. Gram Stain [[id number]] Collected: 03/12/211233 Lab Status: Final result Specimen: Pleural Fluid, Right Updated: 03/12/21 1646 Gram Stain No organisms seen. White blood cells present. Stain performed on concentrated cytospin preparation. Gram Stain [[id number]] Collected: 03/12/211233 Lab Status: No result Specimen: Pleural Fluid, Right SARS Coronavirus-2 RNA, V Symptomatic [[id number]] Collected: 03/12/21 1100 Lab Status: Final result [...] was performed using the Aptima SARS-CoV-2 assay ([employer] on the Skip Hop System under emergency use authorization (EUA) by the U.S. Food and Drug Administration. Fact sheets for this EUA assay can be found at the following links: For Healthcare Providers: https://www.fda.gov/media/455670/download For Patients: https://www.fda.gov/media/054594/download Influenza A/B and RSV, PCR, Varies [[id number]] Collected: 03/12/21 1100 Lab Status: Final result Specimen: Varies from Nasopharynx Updated: 03/13/21 1155 Influenza A/B and RSV, Source Swab, Nasopharynx Influenza A, PCR Undetected Comment: Influenza A RNA absent. Influenza B, PCR Undetected Comment: Influenza B RNA absent. Respiratory Syncytial Virus, PCR Undetected Comment: RSV RNA absent. ----ADDITIONAL INFORMATION---- This test has been modified from the power grader operator's instructions. Its performance characteristics were determined by [facility] in a manner consistent with CLIA requirements. This test has not been cleared or approved by the U.S. Food and Drug Administration. Bacteria / Raudel Culture, Blood #2 [[id number]] Collected: 03/12/21709 Lab Status: Preliminary result Specimen: Blood, Peripheral Draw Updated: 03/15/21804 Bacteria/Raudel Culture, Blood No growth to date. MRSA PCR, Nasal [[id number]] Collected: 03/12/21622 Lab Status: Final result Specimen: Swab from Nares Updated: 03/12/21 105 MRSA Screen, Nasal by PCR Negative Hepatitis B Surface Antigen [[id number]] Collected: 03/12/21557 Lab Status: Final result Specimen: Blood, Peripheral Draw Updated: 03/12/21743 HBs Antigen, S Nonreactive Comment: Biotin has been identified by the power grader operator as a potential interfering substance. Higher concentrations of biotin may be found in multivitamins, hair/nail supplements, and workout supplements. If the result does not match clinical observations, repeat testing after patient refrains from the use of supplements for at least 12 hours. Hepatitis B Core IgM Ab [[id number]] Collected: 03/12/21557 Lab Status: Final result Specimen: Blood, Peripheral Draw Updated: 03/13/21911 HBc IgM Ab, S Negative Hepatitis A IgM Ab, Serum [[id number]] Collected: 03/12/21557 Lab Status: Final result Specimen: Blood, Peripheral Draw Updated: 03/13/21950 Hepatitis A IgM Ab, S Negative Comment: Result does not exclude the possibility of exposure to hepatitis A virus. Antibody level during early infection stage may be below the limit of detection of the assay. HCV Ab w/Reflex to HCV PCR, Serum [[id number]] Collected: 03/12/21557 Lab Status: Final result Specimen: Blood, Peripheral Draw Updated: 03/13/21924 HCV Ab, S Negative Comment: Eagfqx-vs-cemfqb ratio is <1.00. Bacteria / Raudel Culture, Blood #1 [[id number]] Collected: 03/12/21556 Lab Status: Preliminary result Specimen: [...] at discharge: TBD Virginie Valerio, Pharm.D., R.Ph. OR QUALITY SUPERVISOR Lizet Navarro M.D. - 03/14/2021 12:10 PM [...] Procedure Component Value - Date/Time Gram Stain [[id number]] Collected: 03/12/211545 Lab Status: Final result Specimen: Peritoneal Fluid Updated: 03/12/211821 Gram Stain No organisms seen. White blood cells present. Stain performed on concentrated cytospin preparation. Bacterial Culture, Anaerobic + Susc [[id number]] Collected: 03/12/21 1546 Lab Status: In process Specimen: Peritoneal Fluid Updated: 03/12/21 154 Bacterial Culture, Aerobic + Susc [[id number]] Collected: 03/12/21 1546 Lab Status: Preliminary result Specimen: Peritoneal Fluid Updated: 03/13/21 1129 Bacterial Culture, Aerobic + Susc No growth to date Bacterial Culture, Aerobic + Susc [[id number]] Collected: 03/12/21 1234 Lab Status: Preliminary result Specimen: Pleural Fluid, Right Updated: 03/13/21 1133 Bacterial Culture, Aerobic + Susc No growth to date Bacterial Culture, Anaerobic + Susc [[id number]] Collected: 03/12/21 1234 Lab Status: In process Specimen: Pleural Fluid, Right Updated: 03/12/21 1308 Gram Stain [[id number]] Collected: 03/12/21 123 Lab Status: Final result Specimen: Pleural Fluid, Right Updated: 03/12/21 1646 Gram Stain No organisms seen. White blood cells present. Stain performed on concentrated cytospin preparation. Gram Stain [[id number]] Collected: 03/12/21 123 Lab Status: No result Specimen: Pleural Fluid, Right SARS Coronavirus-2 RNA, V Symptomatic [[id number]] Collected: 03/12/21 1100 Lab Status: Final result [...] was performed using the Aptima SARS-CoV-2 assay ([employer] on the Skip Hop System under emergency use authorization (EUA) by the U.S. Food and Drug Administration. Fact sheets for this EUA assay can be found at the following links: For Healthcare Providers: https://www.fda.gov/media/484347/download For Patients: https://www.fda.gov/media/510418/download Influenza A/B and RSV, PCR, Varies [[id number]] Collected: 03/12/21 1100 Lab Status: Final result Specimen: Varies from Nasopharynx Updated: 03/13/21 1155 Influenza A/B and RSV, Source Swab, Nasopharynx Influenza A, PCR Undetected Comment: Influenza A RNA absent. Influenza B, PCR Undetected Comment: Influenza B RNA absent. Respiratory Syncytial Virus, PCR Undetected Comment: RSV RNA absent. ----ADDITIONAL INFORMATION---- This test has been modified from the power grader operator's instructions. Its performance characteristics were determined by [facility] in a manner consistent with CLIA requirements. This test has not been cleared or approved by the U.S. Food and Drug Administration. Bacteria / Raudel Culture, Blood #2 [[id number]] Collected: 03/12/21709 Lab Status: Preliminary result Specimen: Blood, Peripheral Draw Updated: 03/13/21804 Bacteria/Raudel Culture, Blood No growth to date. MRSA PCR, Nasal [[id number]] Collected: 03/12/21622 Lab Status: Final result Specimen: Swab from Nares Updated: 03/12/21 105 MRSA Screen, Nasal by PCR Negative Hepatitis B Surface Antigen [[id number]] Collected: 03/12/21557 Lab Status: Final result Specimen: Blood, Peripheral Draw Updated: 03/12/21743 HBs Antigen, S Nonreactive Comment: Biotin has been identified by the power grader operator as a potential interfering substance. Higher concentrations of biotin may be found in multivitamins, hair/nail supplements, and workout supplements. If the result does not match clinical observations, repeat testing after patient refrains from the use of supplements for at least 12 hours. Hepatitis B Core IgM Ab [[id number]] Collected: 03/12/21557 Lab Status: Final result Specimen: Blood, Peripheral Draw Updated: 03/13/21911 HBc IgM Ab, S Negative Hepatitis A IgM Ab, Serum [[id number]] Collected: 03/12/21557 Lab Status: Final result Specimen: Blood, Peripheral Draw Updated: 03/13/21950 Hepatitis A IgM Ab, S Negative Comment: Result does not exclude the possibility of exposure to hepatitis A virus. Antibody level during early infection stage may be below the limit of detection of the assay. HCV Ab w/Reflex to HCV PCR, Serum [[id number]] Collected: 03/12/21557 Lab Status: Final result Specimen: Blood, Peripheral Draw Updated: 03/13/21924 HCV Ab, S Negative Comment: Fakgpg-hm-ygtnoq ratio is <1.00. Bacteria / Raudel Culture, Blood #1 [[id number]] Collected: 03/12/21556 Lab Status: Preliminary result Specimen: [...] care time 35 min Lizet Navarro M.D. OR QUALITY SUPERVISOR Kerry Naranjo APRN, C.N.P., M.S.N. - 03/14/2021 [...] Naranjo APRN, C.N.P., M.S.N. Gastroenterology and Hepatology [facility] OR QUALITY SUPERVISOR Associated attestation - Leslie Hawk M.D. - 03/14/2021 1:07 PM VENDOR QUALITY SUPERVISOR This is a supervisory note for gastroenterology [...] ceruloplasmin, I have discussed her case with staff analyst, since patient is anuric currently, we will [...] Procedure Component Value - Date/Time Gram Stain [[id number]] Collected: 03/12/21 1548 Lab Status: Final result Specimen: Peritoneal Fluid Updated: 03/12/21 1822 Gram Stain No organisms seen. White blood cells present. Stain performed on concentrated cytospin preparation. Bacterial Culture, Anaerobic + Susc [[id number]] Collected: 03/12/21 1546 Lab Status: Preliminary result Specimen: Peritoneal Fluid Updated: 03/14/21 0523 Bacterial Culture, Anaerobic No growth to date. Bacterial Culture, Aerobic + Susc [[id number]] Collected: 03/12/21 1546 Lab Status: Preliminary result Specimen: Peritoneal Fluid Updated: 03/13/21 1129 Bacterial Culture, Aerobic + Susc No growth to date Bacterial Culture, Aerobic + Susc [[id number]] Collected: 03/12/21 1234 Lab Status: Preliminary result Specimen: Pleural Fluid, Right Updated: 03/13/21 1133 Bacterial Culture, Aerobic + Susc No growth to date Bacterial Culture, Anaerobic + Susc [[id number]] Collected: 03/12/21 1234 Lab Status: Preliminary result Specimen: Pleural Fluid, Right Updated: 03/14/21 0523 Bacterial Culture, Anaerobic No growth to date. Gram Stain [[id number]] Collected: 03/12/21 1234 Lab Status: Final result Specimen: Pleural Fluid, Right Updated: 03/12/21 1646 Gram Stain No organisms seen. White blood cells present. Stain performed on concentrated cytospin preparation. Gram Stain [[id number]] Collected: 03/12/21 1234 Lab Status: No result Specimen: Pleural Fluid, Right SARS Coronavirus-2 RNA, V Symptomatic [[id number]] Collected: 03/12/21 1100 Lab Status: Final result [...] was performed using the Aptima SARS-CoV-2 assay ([employer] on the [employer] System under emergency use authorization (EUA) by the U.S. Food and Drug Administration. Fact sheets for this EUA assay can be found at the following links: For Healthcare Providers: https://www.fda.gov/media/731032/download For Patients: https://www.fda.gov/media/379832/download Influenza A/B and RSV, PCR, Varies [[id number]] Collected: 03/12/21 1100 Lab Status: Final result Specimen: Varies from Nasopharynx Updated: 03/13/21 1155 Influenza A/B and RSV, Source Swab, Nasopharynx Influenza A, PCR Undetected Comment: Influenza A RNA absent. Influenza B, PCR Undetected Comment: Influenza B RNA absent. Respiratory Syncytial Virus, PCR Undetected Comment: RSV RNA absent. ----ADDITIONAL INFORMATION---- This test has been modified from the power grader operator's instructions. Its performance characteristics were determined by [facility] in a manner consistent with CLIA requirements. This test has not been cleared or approved by the U.S. Food and Drug Administration. Bacteria / Raudel Culture, Blood #2 [[id number]] Collected: 03/12/21 0710 Lab Status: Preliminary result Specimen: Blood, Peripheral Draw Updated: 03/14/21 0805 Bacteria/Raudel Culture, Blood No growth to date. MRSA PCR, Nasal [[id number]] Collected: 03/12/21 0623 Lab Status: Final result Specimen: Swab from Nares Updated: 03/12/21 1050 MRSA Screen, Nasal by PCR Negative Hepatitis B Surface Antigen [[id number]] Collected: 03/12/21557 Lab Status: Final result Specimen: Blood, Peripheral Draw Updated: 03/12/21 0744 HBs Antigen, S Nonreactive Comment: Biotin has been identified by the power grader operator as a potential interfering substance. Higher concentrations of biotin may be found in multivitamins, hair/nail supplements, and workout supplements. If the result does not match clinical observations, repeat testing after patient refrains from the use of supplements for at least 12 hours. Hepatitis B Core IgM Ab [[id number]] Collected: 03/12/21557 Lab Status: Final result Specimen: Blood, Peripheral Draw Updated: 03/13/21 0912 HBc IgM Ab, S Negative Hepatitis A IgM Ab, Serum [[id number]] Collected: 03/12/21557 Lab Status: Final result Specimen: Blood, Peripheral Draw Updated: 03/13/21 09 Hepatitis A IgM Ab, S Negative Comment: Result does not exclude the possibility of exposure to hepatitis A virus. Antibody level during early infection stage may be below the limit of detection of the assay. HCV Ab w/Reflex to HCV PCR, Serum [[id number]] Collected: 03/12/21557 Lab Status: Final result Specimen: Blood, Peripheral Draw Updated: 03/13/21924 HCV Ab, S Negative Comment: Skvnyo-tp-iuuxpg ratio is <1.00. Bacteria / Raudel Culture, Blood #1 [[id number]] Collected: 03/12/2157 Lab Status: Preliminary result Specimen: [...] anticipated at discharge: TBSlick Valerio, Pharm.D., R.Ph. OR QUALITY SUPERVISOR Silvestre Stevens, R.R.T. - 03/14/2021 9:31 AM [...] extubated to 4 lpm per nasal canula OR QUALITY SUPERVISOR Adry Reyes - 03/14/2021 4:20 AM CST [...] signed by: Adry Reyes 03/14/21 4:21 AM VENDOR QUALITY SUPERVISOR OR QUALITY SUPERVISOR Tariq Marcano M.B.B.S. - 03/13/2021 7:04 PM [...] Procedure Component Value - Date/Time Gram Stain [[id number]] Collected: 03/12/21 1546 Lab Status: Final result Specimen: Peritoneal Fluid Updated: 03/12/21 1822 Gram Stain No organisms seen. White blood cells present. Stain performed on concentrated cytospin preparation. Bacterial Culture, Anaerobic + Susc [[id number]] Collected: 03/12/21 1546 Lab Status: In process Specimen: Peritoneal Fluid Updated: 03/12/21 1548 Bacterial Culture, Aerobic + Susc [[id number]] Collected: 03/12/21 1546 Lab Status: Preliminary result Specimen: Peritoneal Fluid Updated: 03/13/21 1129 Bacterial Culture, Aerobic + Susc No growth to date Bacterial Culture, Aerobic + Susc [[id number]] Collected: 03/12/21 1234 Lab Status: Preliminary result Specimen: Pleural Fluid, Right Updated: 03/13/21 1133 Bacterial Culture, Aerobic + Susc No growth to date Bacterial Culture, Anaerobic + Susc [[id number]] Collected: 03/12/21 1234 Lab Status: In process Specimen: Pleural Fluid, Right Updated: 03/12/21 1308 Gram Stain [[id number]] Collected: 03/12/21 1234 Lab Status: Final result Specimen: Pleural Fluid, Right Updated: 03/12/21 1646 Gram Stain No organisms seen. White blood cells present. Stain performed on concentrated cytospin preparation. Gram Stain [[id number]] Collected: 03/12/21 1234 Lab Status: No result Specimen: Pleural Fluid, Right SARS Coronavirus-2 RNA, V Symptomatic [[id number]] Collected: 03/12/21 1100 Lab Status: Final result [...] was performed using the Aptima SARS-CoV-2 assay ([facility] on the Skip Hop System under emergency use authorization (EUA) by the U.S. Food and Drug Administration. Fact sheets for this EUA assay can be found at the following links: For Healthcare Providers: https://www.fda.gov/media/773777/download For Patients: https://www.fda.gov/media/655565/download Influenza A/B and RSV, PCR, Varies [[id number]] Collected: 03/12/21 1100 Lab Status: Final result Specimen: Varies from Nasopharynx Updated: 03/13/21 1155 Influenza A/B and RSV, Source Swab, Nasopharynx Influenza A, PCR Undetected Comment: Influenza A RNA absent. Influenza B, PCR Undetected Comment: Influenza B RNA absent. Respiratory Syncytial Virus, PCR Undetected Comment: RSV RNA absent. ----ADDITIONAL INFORMATION---- This test has been modified from the power grader operator's instructions. Its performance characteristics were determined by [facility] in a manner consistent with CLIA requirements. This test has not been cleared or approved by the U.S. Food and Drug Administration. Bacteria / Raudel Culture, Blood #2 [[id number]] Collected: 03/12/21 0710 Lab Status: Preliminary result Specimen: Blood, Peripheral Draw Updated: 03/13/21 0805 Bacteria/Raudel Culture, Blood No growth to date. MRSA PCR, Nasal [[id number]] Collected: 03/12/21 0623 Lab Status: Final result Specimen: Swab from Nares Updated: 03/12/21 1050 MRSA Screen, Nasal by PCR Negative Hepatitis B Surface Antigen [[id number]] Collected: 03/12/21 0558 Lab Status: Final result Specimen: Blood, Peripheral Draw Updated: 03/12/21 0744 HBs Antigen, S Nonreactive Comment: Biotin has been identified by the power grader operator as a potential interfering substance. Higher concentrations of biotin may be found in multivitamins, hair/nail supplements, and workout supplements. If the result does not match clinical observations, repeat testing after patient refrains from the use of supplements for at least 12 hours. Hepatitis B Core IgM Ab [[id number]] Collected: 03/12/21557 Lab Status: Final result Specimen: Blood, Peripheral Draw Updated: 03/13/21911 HBc IgM Ab, S Negative Hepatitis A IgM Ab, Serum [[id number]] Collected: 03/12/21557 Lab Status: Final result Specimen: Blood, Peripheral Draw Updated: 03/13/21950 Hepatitis A IgM Ab, S Negative Comment: Result does not exclude the possibility of exposure to hepatitis A virus. Antibody level during early infection stage may be below the limit of detection of the assay. HCV Ab w/Reflex to HCV PCR, Serum [[id number]] Collected: 03/12/21557 Lab Status: Final result Specimen: Blood, Peripheral Draw Updated: 03/13/21924 HCV Ab, S Negative Comment: Tdabgf-rz-lnnezg ratio is <1.00. Bacteria / Raudel Culture, Blood #1 [[id number]] Collected: 03/12/21556 Lab Status: Preliminary result Specimen: [...] 32 minutes. I personally discussed with the manager lean on-call Tyrell Wright OR QUALITY SUPERVISOR Criselda Maurer R.R.T., L.R.T. - 03/13/2021 6:09 [...] ART 30 L PH ART 7.46 H OR QUALITY SUPERVISOR Kerry Naranjo, YARITZA, C.N.P., MSumaS.N. - 03/13/2021 10:05 AM CST SUBJECTIVE Catia [...] Naranjo APRN, C.N.P., M.S.N. Gastroenterology and Hepatology [facility] OR QUALITY SUPERVISOR Associated attestation - Leslie Hawk M.D. - 03/13/2021 2:43 PM VENDOR QUALITY SUPERVISOR This is a supervisory note for gastroenterology [...] our team if any further questions Virginie Valerio R.Ph. - 03/13/2021 8:48 AM CST Pharmacist Progress [...] 1 gm x1 given 03/12 ?? Per voucher examiner, plan for 5 days of broad spectrums [...] at discharge: TBD Virginie Valerio, Pharm.D., R.Ph. OR QUALITY SUPERVISOR Sridhar Trevino, R.R.T. - 03/13/2021 6:29 AM CST 2000-Pt seen this evening with 7.5 ETT, secured 22cm @ teeth. Pt on kincaid ventilator SCMV 18/320/+12/40% SpO2: 99% Breath Sounds/Secretions: clear/dim, suctioning out small white/yellow secretions. Pt tolerating ventilator well RT to follow OR QUALITY SUPERVISOR Virginie Valerio, R.Ph. - 03/12/2021 10:18 AM [...] at discharge: TBD Virginie Valerio, Pharm.D., R.Ph. OR QUALITY SUPERVISOR Shahida Brito R.RMerlin., L.R.T. - 03/12/2021 10:14 AM CST Pt was intubated with 7.5 ETT placed at 22@ teeth. Tube placement confirmed with bilateral breath sounds and positive ETCO2. She was placed on the ventilator at volume control 20/300/+8/40%. OR QUALITY SUPERVISOR documented in this encounter H&P Notes Ivan [...] again had likely had a consultation with [facility] and will request records from their [...] from lines of procedures was 60 minutes OR QUALITY SUPERVISOR documented in this encounter Procedure Notes Barrera [...] slight turn: yes Complications - arterial: none OR QUALITY SUPERVISOR Barrera To M.D. - 03/12/2021 6:02 PM [...] ETT location: oral VL device: glide scope [place] scope blade size: 3 Adult tube size: [...] right mid-axillary Intercostal space: 3rd Puncture method: gphr-che-ftxuue catheter Number of attempts: 1 Drainage characteristics: [...] completed successfully: yes Complications: no apparent complications OR QUALITY SUPERVISOR documented in this encounter Consult Notes Ciara Stewart L.G.S.W. - 03/21/2021 2:09 PM CST Diagnostic Assessment SUBJECTIVE DEMOGRAPHIC INFORMATION Referral Source: CM/ Referral Referral Reason: Psychosocial assessment,Coping, adjustment and support,Discharge Planning Discharge Planning: (to be determined) Person(s) present during interview: Lobito Rosenthal Primary care clinic and provider: ELSEWHERE, PCP, Patient reported Dr. Roge Hernandez, [facility] to be her primary Doctor Primary Language: Grenadian Pulp Grinder Services Used: No Legal Information: Voluntary Citizenship: [...] Support System: Significant other,Parent,Family members Spirituality / Voodoo / Culture: , patient was raised Pentecostalism but does not currently attend episcopal. 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 ASSISTIVE DEVICES Patient has the following equipment: Eyeglasses,Contacts Patient anticipates potentially needing the following additional equipment: None Transportation needs: Support from family MEDIA SUPERVISOR Caregiver Name: Lobito Brunson Caregiver Relationship: Significant other Caregiver FINANCES/INSURANCE Primary insurance: [employer]Life[employer] Secondary insurance: N/A Income Information Does the Patient have any Financial Concerns?: Yes Income Source: Parent/primary caregiver employmen Income/Expense Information: Income meets expenses ADVANCE DIRECTIVES The patient does not currently have an advance directive on file. LEGAL HISTORY Review of the [place] Trial Court Public Access Website ([email or web address] shows no past or current criminal charges. [...] side effects. Patient works with Dr. Hernandez, [facility], for medication management and support. Thepatient [...] Intact Suicide Risk and Safety Risk Assessment: [place] Suicide Risk Severity Scale (C-SSRS)Lifetime/Recent 03/21/21 1400 [...] active suicidal and homicidal ideation. Lifetime/Recent: The [place] Suicide Severity Rating Scale (C-SSRS) Lifetime/Recent screening [...] in sustained remission INTERVENTIONS 1. Inpatient clinical geriatric social work professor completed a diagnostic assessment in response to a chemical dependency order placed by Keerthi Guzman (ordering hospitalist). 2. farmworker pullet farm engaged the patient in Solution Focused Brief Therapy and Motivational Interviewingutilizing scaling questions and process questions and rapport building, empathetic communication, open ended questioning, summarizing and reflection to complete the assessment process. farmworker pullet farm recommended patient continue to follow direction of inpatient medical and mental health team to determine best plan of care for patient. Rule 25 assessment discussed with patient, however based on this insurance writer's assessment and patient's disclosure, patient reports [...] chemical health assessment or Rule 25. 5. farmworker pullet farm engaged in safety planning conversation. a. Patient [...] medical and mental health treatment team. 2. farmworker pullet farm will continue to assist as needed and [...] 50 minutes total time. Danny Newton 03/21/2021 OR QUALITY SUPERVISOR Jean Paul M.D., M.P.H. - 03/21/2021 12:07 [...] while sitting in bed, eyes rolled back. TILE FITTER called for help and upon RN entering room, noted pts arms tensing and shaking. CLINICAL SUPPORT ASSOCIATE paged right away. VSS. Pt appearing sleepy upon insurance writer entering room and then after a [...] Plantar Response: R flexor L flexor Coordination: Dqgtzy-Ijlw-Hjkdoj: Intact b/l ASSESSMENT / PLAN Patient Active [...] the date of the encounter. Time included [id number] interview and evaluation, counseling the patient, reviewing records, reviewing relevant diagnostic tests, ordering tests, documenting clinical information in the electronic records and communicating with other p roviders. PATIENT EDUCATION Ready to learn, no apparent learning barriers were identified; learning preferences include listening. Explained diagnosis and treatment plan; patient expressed understanding of the content. OR QUALITY SUPERVISOR Sivakumar Reyes M.D. 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 We placed a ucialj-cr-whmce suture around the paracentesis site. [facility] of the ICU team. Procedure: 5 mL of 1% lidocaine were injected around the paracentesis site. A 2 0 Vicryl suture was used to place the a qnazpu-si-veuis stitch around the paracentesis site This was [...] clinic and provider: ELSEWHERE, PCP Primary Language: Grenadian Pulp Grinder Services Used: No Legal Information: Legal Decision [...] so this writercontacted the patient's mother Parris ([phone]) to complete a psychosocial assessment and to [...] Support System: Significant other,Parent,Family members Spirituality / Voodoo / Culture: , patient was raised Pentecostalism but does not currently attend episcopal. 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 in their motor clothes but had to [...] Finances: Independent Behavior: Oriented Communication: Talks,Understands speaking,Understands Grenadian,Can write It is anticipated that the patient will need assistance with (to be determined). ASSISTIVE DEVICES Patient has the following equipment: Eyeglasses,Contacts Patient anticipates potentially needing the following additional equipment: None Transportation needs: Support from family SERVICES REQUESTED None MEDIA SUPERVISOR Formal and Informal Resources: Caregiver Name: Lobito Brunson Caregiver Relationship: Significant other Caregiver FINANCES/INSURANCE Primary insurance: [employer] Secondary insurance: N/A Income Information Does the [...] Suicide Risk and Safety Risk Assessment: The [place] Suicide Risk Severity Scale (C-SSRS) was unable [...] extended family/friends ASSESSMENT / PLAN IMPRESSION This insurance writer completed a psychosocial assessment of the [...] work at this time but thanked this insurance writer for the call. INTERVENTIONS 1. Psychosocial assessment completed. 2. Provided supportive services. 3. Provided education regarding the role of social work. 4. Provided education regarding referral resources and options. PLAN 1. Social Work will continue to follow and assist as needed or requested. Anticipated barriers to the transition of care/plan: None Светлана Guillen 03/13/2021 OR QUALITY SUPERVISOR Sera Morgan P.A.-C. - 03/12/2021 12:50 PM [...] of cirrhosis with ascites who presents from [facility] being found unresponsive and incontinent at home. [...] (A) Bilirubin Moderate (A) pH 6.0 Specific [place] 1.016 Urobilinogen 1.0 MRSA PCR, Nasal Collection [...] plan at this time. Sera Morgan P.A.-C. OR QUALITY SUPERVISOR Associated attestation - Leslie Hawk M.D. - 03/12/2021 2:37 PM VENDOR QUALITY SUPERVISOR This is a supervisory note for gastroenterology [...] in this encounter Nursing Notes Hope Guerrier REric. - 03/24/2021 12:18 PM CST INPATIENT NURSING DISCHARGE SUMMARY Discharge Provider: No att. providers found Admission Date: 03/12/2021 Discharge Date: 03/24/2021 DISCHARGE DISPOSITION Home/Self Care CONDITION AT DISCHARGE stable TREATMENTS None DEVICES/EQUIPMENT None PROFESSIONAL SKILLED SERVICES None MODE OF DISCHARGE Ambulatory TRANSPORTATION Private Vehicle ACCOMPANIED BY Nurse Discharge paperwork discussed with pt and all questions answered. All belongings sent home with patient. OR QUALITY SUPERVISOR Bernardo Rosario R.N. - 03/24/2021 4:20 AM [...] of care to be continued by oncomingnurse. OR QUALITY SUPERVISOR Hope Guerrier R.N. - 03/23/2021 4:32 PM [...] of blood today. Will continue withcurrent POC. OR QUALITY SUPERVISOR Lisa Stinson R.N. - 03/23/2021 5:50 AM [...] Patient denies pain. Will continue to monitor. OR QUALITY SUPERVISOR Carol Rodriguez R.N. - 03/22/2021 11:06 PM CST Shift Goals: Clinical Goals for the Shift: Patient will remain free from falls and get adequate rest Identify possible barriers to meeting goals/advancing plan of care: None End of Shift Summary: Patient slept intermittently throughout the shift and took a couple walks in the halls with the TILE FITTER today. Pt reported having no abdominal pain [...] Emergency Response Team call for Anxiety,Agitation, at [facility]. I have reviewed the medical records, spoke with the patient's nurse, and met with the patient in person. Follow-Up Assessment: [employer] Redevelopment Site Manager met with patient assigned nurse. Patient [...] free to contact the MARILUZ RN at [phone], or in an emergent situation by activating the MARILUZ team through the hospital weaving loom operator by dialing 201. OR QUALITY SUPERVISOR Nola Frederick - 03/22/2021 4:49 AM CST [...] melatonin and Zyprexa not given until 0100. OR QUALITY SUPERVISOR Yajaira Faulkner RSumaNSuma - 03/21/2021 2:40 PM CST Rapid Response Follow Up Attending Provider: Keerthi Guzman M.D. Admission Date: 03/12/2021 Current Vitals: Vitals: 03/21/21 1100 BP: 117/75 Pulse: 105 Resp: 22 Temp: 37.3 ??C SpO2: 97% Rapid RN following for: ? seizure Assessment: pt alert Oriented x3 walking in room , has a sitter, vs stable, head ct negative, plan for eeg today Interventions: remove from grain buyer list Recommendations for primary RN: call for [...] primary nurse: Encouraged primary RN to call CLINICAL SUPPORT ASSOCIATE with questions, concerns, or if patient condition [...] RN: Continue to monitor mental status, call CLINICAL SUPPORT ASSOCIATE with any concerns Rapid RN will continue to monitor for: Will monitor for seizure like activity Patient Disposition: has improved Rapid RN following prior to transfer to higher level of care, if applicable: Offered debrief to primary nurse: Encouraged primary RN to call CLINICAL SUPPORT ASSOCIATE with questions, concerns, or if patient condition [...] labs. Will continue with plan of care. OR QUALITY SUPERVISOR Priscilla Morelos R.N. - 03/20/2021 11:03 PM [...] while sitting in bed, eyes rolled back. TILE FITTER called for help and upon RN entering room,noted pts arms tensing and shaking. CLINICAL SUPPORT ASSOCIATE paged right away. VSS. Pt appearing sleepy upon insurance writer entering room and then after a [...] HS, had 4bms today. Continue to monitor. OR QUALITY SUPERVISOR Tia Abbasi R.N. - 03/20/2021 10:38 PM CST MARILUZ Follow up: This is a follow up to the Behavioral Emergency Response Team call for Anxiety,Agitation, at [facility]. I have reviewed the medical records, spoke [...] free to contact the MARILUZ RN at [phone], or in an emergent situation by activating the MARILUZ team through the hospital weaving loom operator by dialing 201. OR QUALITY SUPERVISOR Grazyna Barroso RSumaN. - 03/20/2021 2:34 PM [...] Vitals remain stable, continue plan of care. OR QUALITY SUPERVISOR Cathie Rae RSumaN. - 03/20/2021 1:34 PM CST [facility] Follow up: This is a follow up to the Behavioral Emergency Response Team call for Anxiety,Agitation, at [facility]. I have reviewed the medical records, spoke [...] free to contact the MARILUZ RN at [phone], or in an emergent situation by activating the MARILUZ team through the hospital weaving loom operator by dialing 201. OR QUALITY SUPERVISOR Tia Abbasi R.N. - 03/20/2021 6:49 AM CST MARILUZ Follow up: This is a follow up to the Behavioral Emergency Response Team call for Anxiety,Agitation, at [facility]. I have reviewed the medical records, spoke with the patient's nurse, and met with the patient in person. Follow-Up Assessment: No MARILUZ calls this shift. Will continue to follow. Follow-Up: ?? The MARILUZ RN will follow up during their next rounds on the day shift. If there are any questions or concerns, please feel free to contact the MARILUZ RN at [phone], or in an emergent situation by activating the MARILUZ team through the hospital weaving loom operator by dialing 201. OR QUALITY SUPERVISOR Juan Palacios R.N. - 03/20/2021 4:14 AM [...] Emergency Response Team call for Anxiety,Agitation, at [facility]. I have reviewed the medical records, spoke with the patient's nurse, and met with the patient in person. Follow-Up Assessment: No requests for mariluz interventions today. Follow-Up: ?? The MARILUZ RN will follow up during their rounds on the evening shift. If there are any questions or concerns, please feel free to contact the MARILUZ RN at [phone], or in an emergent situation by activating the MARILUZ team through the hospital weaving loom operator by dialing 201. Grazyna Salazar R.N. [...] by: Virginie Stahl R.N. 03/19/21 7:38 AM VENDOR QUALITY SUPERVISOR OR QUALITY SUPERVISOR Criselda He R.N. - 03/18/2021 6:56 PM CST [...] a 30 y.o. female admitted to the [facility] for Change Mental Status [employer] Redevelopment Site Manager called to pt room due to increased anxious behavior. Pt had refused her lactulose several times recently. Brown[employer] Redevelopment Site Manager observed while pt received the a dose this afternoon. Her speech was rapid and tangental. Pt became visibly anxious during and after taking the lactulose. Pt began to slur her words and stutter. Pt's pupils were equal, round, and reacted briskly. Motor function/sensation assessment was normal. After other staff left the room insurance writer talked with pt for a while [...] was the sister or cousin of a TILE FITTER. [employer] Redevelopment Site Manager spent time validating pt's feelings and when she was much calmer insurance writer cleared from the situation. Individual Assignment [...] free to contact the MARILUZ RN at [phone], or in an emergent situation by activating the MARILUZ team through the hospital weaving loom operator by dialing 201. OR QUALITY SUPERVISOR Virginie Stahl R.N. - 03/18/2021 4:10 AM CST Shift [...] by: Virginie Stahl R.N. 03/18/21 6:07 AM VENDOR QUALITY SUPERVISOR OR QUALITY SUPERVISOR Criselda He R.N. - 03/17/2021 5:44 PM [...] at 1445. Will continue plan of care. OR QUALITY SUPERVISOR Nola Frederick - 03/17/2021 5:37 AM CST [...] not call for assistance at any point. OR QUALITY SUPERVISOR Hilda Bower R.N. - 03/16/2021 8:04 PM [...] art line, cont to have 2 PIVs. OR QUALITY SUPERVISOR Ricardo Rosado R.N. - 03/16/2021 4:28 AM [...] grateful. Replaced magnesium, calcium, potassium and phos. OR QUALITY SUPERVISOR Hilda Bower R.N. - 03/15/2021 6:00 PM [...] Has a right IJ and 2 PIVs. OR QUALITY SUPERVISOR Ricardo Rosado R.N. - 03/15/2021 6:34 AM [...] Potassium, Magnesium and phos replaced this shift. OR QUALITY SUPERVISOR Hilda Bower R.N. - 03/14/2021 6:45 PM [...] currently on 25 mcg/kg/min, 0.5 mcg/kg/hr precedex. OR QUALITY SUPERVISOR Diya Weiss R.N. - 03/13/2021 5:05 PM [...] titrated down with MAP goal (>65 per Prospecting Driller Helper) achieved. Patient appear to have improving mental [...] MAP>70 on Vaso and Levo 0.05-0.08. Since 1900, UO 370mL and stool 330mL, Noc Lactulose held. 1u RBC given @ 1600, 100 IV and 40 PO potassium given. Electronically signed by: Baldemar Evangelista R.N. 03/13/21 6:36 AM VENDOR QUALITY SUPERVISOR OR QUALITY SUPERVISOR Diya Weiss R.N. - 03/12/2021 3:00 PM [...] pelvis today. No family visiting this shift. Prospecting Driller Helper updated patient's mother via phone call. OR QUALITY SUPERVISOR Criselda Valentin R.N. - 03/12/2021 6:45 AM CST Pt direct admit from [place] to room 3411. Pt agitated, moaning, not [...] him to bring her to the ED. OR QUALITY SUPERVISOR documented in this encounter Miscellaneous Notes Hospital [...] of FFP yesterday. She was transferred to [facility] 03/16. -- continue Lactulose titrate down have [...] the course abx for community acquired pneumonia OR QUALITY SUPERVISOR documented in this encounter Plan of Treatment Upcoming Encounters Date Type Specialty Care Team Description Virtual Visit Transplant Matthew Jerome M .B.B.S., M.D. [address] [place], [place] [phone] 2 Rain Reyes R.N. [address] [place] [address] [phone] Telemedicine Transplant LinaDemarcus 2 Brigid noyola M.D. [address] [place] [phone] Office Visit Community [facility], 2 Medicine Vernell Perez [address] [place] [phone] Lab Laboratory Medicine Karin, 2 Adeline Gannon M.D., Ph.D. [address] [place] [phone] Lab Laboratory Medicine Karin, 2 Adeline Gannon M.D., Ph.D. [address] [place] [address] [phone] Office Visit Transplant Karin, 2 Adeline Gannon M.D., Ph.D. [address] [place] [phone] Appointment Radiology Matthew Jerome 2 YTyrell, MJules [address] [place] [phone] Appointment Gastroenterology demian Silver, 2 Hepatology Yue Burciaga M.D. [address] [place] [phone] Office Visit Gastroenterology and [facility] 2 Hepatology Tyrell Rodriguez M.D. [address] [place] [phone] Appointment Radiology [facility] 2 YTyrell M.D. [address] [place] [phone] Hospital Gastroenterology and [facility] Cirrhos is Alcoholic (HCC) 2 Encounter Hepatology Tyrell Rodriguez M.D. [address] [place] [phone] Anesthesia Event Gastroenterology and [facility], 2 Hepatology Ervin Burgos M.D. [address] [place] [address] [phone] Surgery Gastroenterology and [facility] ESOPHAG OGASTRODUODENOSCOPY 2 Hepatology Tyrell Rodriguez M.D. [address] [place] [phone] Pending Results Name Type Priority Associated Diagnoses Date/Ti mi Prepare Red Blood Cells, 1 Blood Bank Routine 1 05/12/2020 12:59 PM Units VENDOR QUALITY SUPERVISOR Prepare Red Blood Cells, 1 Blood Bank Routine 1 05/12/2020 12:59 PM Units VENDOR QUALITY SUPERVISOR Prepare Red Blood Cells, 1 Blood Bank Routine 1 05/12/2020 12:59 PM Units VENDOR QUALITY SUPERVISOR Prepare Fresh Frozen Blood Bank Routine 021 12:06 PM Plasma : 2 Units VENDOR QUALITY SUPERVISOR Transfuse Fresh Frozen Blood Bank Routine 03/15 3:52 PM Plasma :Bleeding with VENDOR QUALITY SUPERVISOR altered coagulation; 180 mL/hr, 2 Units Prepare Red Blood Cells, 1 Blood Bank Routine 1 05/12/2020 12:59 PM Units VENDOR QUALITY SUPERVISOR Prepare Fresh Frozen Blood Bank Routine 021 2:05 AM Plasma : 1 Units VENDOR QUALITY SUPERVISOR Prepare Pooled Blood Bank Routine 03/16/2021 2: 05 AM Cryoprecipitate VENDOR QUALITY SUPERVISOR Prepare Red Blood Cells, 1 Blood Bank STAT 1 05/16/2020 5:44 AM Units VENDOR QUALITY SUPERVISOR Prepare Fresh Frozen Blood Bank STAT 021 5:44 AM Plasma : 2 Units VENDOR QUALITY SUPERVISOR Prepare Red Blood Cells, 2 Blood Bank STAT 1 05/16/2020 5:44 AM Units VENDOR QUALITY SUPERVISOR Prepare Red Blood Cells, 1 Blood Bank STAT 1 05/16/2020 5:44 AM Units VENDOR QUALITY SUPERVISOR Prepare Fresh Frozen Blood Bank STAT 021 5:44 AM Plasma : 1 Units VENDOR QUALITY SUPERVISOR Patient Status Lab Routine 03/20/2021 7: 40 AM VENDOR QUALITY SUPERVISOR Prepare Red Blood Cells, 1 Blood Bank Routine 1 05/23/2020 1:12 PM Units VENDOR QUALITY SUPERVISOR Scheduled Procedures Name Priority Associated Diagnoses Date/Time ESOPHAGOGASTRODUODENOSCOPY Cirrhosis Alc oholic (HCC) 03/20/2022 8:45 AM VENDOR QUALITY SUPERVISOR Hypertension Portal (HCC) Scheduled Referrals Name Type Priority Associated Order Schedule Diagnoses Gastroenterology and Outpatient Routine Expecte d: Hepatology office visit Referral 03/03 (clinic) (Approximate), Expires: 03/15/2024 documented as of this encounter Procedures Procedure Name Priority Date/Time Associated Comments Diagnosis VITAMIN A AND VITAMIN Routine 03/24/2021 6:15 Res ults for E, S AM VENDOR QUALITY SUPERVISOR this procedure are in the results section. ZINC, S Routine 03/24/2021 6:15 Results for AM VENDOR QUALITY SUPERVISOR this procedure are in the results section. PROTHROMBIN TIME (PT), Routine 03/24/2021 6:15 Re sults for P AM VENDOR QUALITY SUPERVISOR this procedure are in the results section. CBC WITHOUT Routine 03/24/2021 6:15 Results for DIFFERENTIAL, B AM VENDOR QUALITY SUPERVISOR this procedu re are in the results section. COMPREHENSIVE Routine 03/24/2021 6:15 Results for METABOLIC PANEL, S/P AM VENDOR QUALITY SUPERVISOR this pr ocedure are in the results section. TRANSFUSE RED BLOOD Routine 03/23/2021 3:21 CELLS PM VENDOR QUALITY SUPERVISOR TESTING LOCATION Routine 03/23/2021 1:12 Results for PM VENDOR QUALITY SUPERVISOR this procedure are in the results section. PREPARE RED BLOOD Routine 03/23/2021 1:12 CELLS PM VENDOR QUALITY SUPERVISOR TYPE AND SCREEN Routine 03/23/2021 1:12 Results f or PM VENDOR QUALITY SUPERVISOR this procedure are in the results section. ADULT OXYGEN THERAPY Routine 03/23/2021 8:00 AM VENDOR QUALITY SUPERVISOR PULSE OXIMETRY, Routine 03/23/2021 8:00 CONTINUOUS AM VENDOR QUALITY SUPERVISOR PROTHROMBIN TIME (PT), Routine 03/23/2021 6:43 Re sults for P AM VENDOR QUALITY SUPERVISOR this procedure are in the results section. CBC WITHOUT Routine 03/23/2021 6:43 Results for DIFFERENTIAL, B AM VENDOR QUALITY SUPERVISOR this procedu re are in the results section. PHOSPHORUS Routine 03/23/2021 6:43 Results for (INORGANIC), S AM VENDOR QUALITY SUPERVISOR this procedur e are in the results section. MAGNESIUM, S Routine 03/23/2021 6:43 Results for AM VENDOR QUALITY SUPERVISOR this procedure are in the results section. COMPREHENSIVE Routine 03/23/2021 6:43 Results for METABOLIC PANEL, S/P AM VENDOR QUALITY SUPERVISOR this pr ocedure are in the results section. ADULT OXYGEN THERAPY Routine 03/22/2021 8:00 PM VENDOR QUALITY SUPERVISOR PULSE OXIMETRY, Routine 03/22/2021 8:00 CONTINUOUS PM VENDOR QUALITY SUPERVISOR LACTATE, B Routine 03/22/2021 8:38 Results for AM VENDOR QUALITY SUPERVISOR this procedure are in the results section. PROTHROMBIN TIME (PT), Routine 03/22/2021 8:38 Re sults for P AM VENDOR QUALITY SUPERVISOR this procedure are in the results section. CBC WITHOUT Routine 03/22/2021 8:38 Results for DIFFERENTIAL, B AM VENDOR QUALITY SUPERVISOR this procedu re are in the results section. AMMONIA Routine 03/22/2021 8:38 Results for AM VENDOR QUALITY SUPERVISOR this procedure are in the results section. COMPREHENSIVE Routine 03/22/2021 8:38 Results for METABOLIC PANEL, S/P AM VENDOR QUALITY SUPERVISOR this pr ocedure are in the results section. PHOSPHORUS Routine 03/22/2021 8:33 Results for (INORGANIC), S AM VENDOR QUALITY SUPERVISOR this procedur e are in the results section. MAGNESIUM, S Routine 03/22/2021 8:33 Results for AM VENDOR QUALITY SUPERVISOR this procedure are in the results section. ADULT OXYGEN THERAPY Routine 03/22/2021 8:00 AM VENDOR QUALITY SUPERVISOR PULSE OXIMETRY, Routine 03/22/2021 8:00 CONTINUOUS AM VENDOR QUALITY SUPERVISOR ADULT OXYGEN THERAPY Routine 03/21/2021 8:01 PM VENDOR QUALITY SUPERVISOR PULSE OXIMETRY, Routine 03/21/2021 8:01 CONTINUOUS PM VENDOR QUALITY SUPERVISOR EEG ROUTINE - AWAKE Routine 03/21/2021 4:43 Resul ts for AND SLEEP PM VENDOR QUALITY SUPERVISOR this procedure are in the results section. CT ABDOMEN PELVIS RAD - Routine 03/21/2021 Results f or WITHOUT IV CONTRAST (most inpatients 12:42 PM VENDOR QUALITY SUPERVISOR this procedure and all are in the outpatients) results section. CT HEAD WITHOUT IV RAD - Routine 03/21/2021 Results for CONTRAST (most inpatients 12:42 PM VENDOR QUALITY SUPERVISOR this proced ure and all are in the outpatients) results section. ECG Routine 03/21/2021 Results for 10:06 AM VENDOR QUALITY SUPERVISOR this procedure are in the results section. ADULT OXYGEN THERAPY Routine 03/21/2021 8:01 AM VENDOR QUALITY SUPERVISOR PULSE OXIMETRY, Routine 03/21/2021 8:01 CONTINUOUS AM VENDOR QUALITY SUPERVISOR COMPREHENSIVE Routine 03/21/2021 5:44 Results for METABOLIC PANEL, S/P AM VENDOR QUALITY SUPERVISOR this pr ocedure are in the results section. LACTATE, B Routine 03/21/2021 5:43 Results for AM VENDOR QUALITY SUPERVISOR this procedure are in the results section. PROTHROMBIN TIME (PT), Routine 03/21/2021 5:43 Re sults for P AM VENDOR QUALITY SUPERVISOR this procedure are in the results section. CBC WITHOUT Routine 03/21/2021 5:43 Results for DIFFERENTIAL, B AM VENDOR QUALITY SUPERVISOR this procedu re are in the results section. LACTATE, B Timed 03/20/2021 Results for 10:32 PM VENDOR QUALITY SUPERVISOR this procedure are in the results section. CBC WITH DIFFERENTIAL, Timed 03/20/2021 Resul ts for B 10:32 PM VENDOR QUALITY SUPERVISOR this procedure are in the results section. CREATINE KINASE (CK), Timed 03/20/2021 Result s for S 10:32 PM VENDOR QUALITY SUPERVISOR this procedure are in the results section. AMMONIA Timed 03/20/2021 Results for 10:32 PM VENDOR QUALITY SUPERVISOR this procedure are in the results section. COMPREHENSIVE Timed 03/20/2021 Results for METABOLIC PANEL, S/P 10:32 PM VENDOR QUALITY SUPERVISOR this pr ocedure are in the results section. GLUCOSE POCT, B Routine 03/20/2021 9:03 Results f or PM VENDOR QUALITY SUPERVISOR this procedure are in the results section. ADULT OXYGEN THERAPY Routine 03/20/2021 8:01 PM VENDOR QUALITY SUPERVISOR PULSE OXIMETRY, Routine 03/20/2021 8:01 CONTINUOUS PM VENDOR QUALITY SUPERVISOR ADULT OXYGEN THERAPY Routine 03/20/2021 8:01 AM VENDOR QUALITY SUPERVISOR PULSE OXIMETRY, Routine 03/20/2021 8:01 CONTINUOUS AM VENDOR QUALITY SUPERVISOR LACTATE, B Routine 03/20/2021 7:40 Results for AM VENDOR QUALITY SUPERVISOR this procedure are in the results section. PH BLOOD GAS Routine 03/20/2021 7:40 Results for AM VENDOR QUALITY SUPERVISOR this procedure are in the results section. PROTHROMBIN TIME (PT), Routine 03/20/2021 7:40 Re sults for P AM VENDOR QUALITY SUPERVISOR this procedure are in the results section. CBC WITHOUT Routine 03/20/2021 7:40 Results for DIFFERENTIAL, B AM VENDOR QUALITY SUPERVISOR this procedu re are in the results section. PHOSPHORUS Routine 03/20/2021 7:40 Results for (INORGANIC), S AM VENDOR QUALITY SUPERVISOR this procedur e are in the results section. MAGNESIUM, S Routine 03/20/2021 7:40 Results for AM VENDOR QUALITY SUPERVISOR this procedure are in the results section. VENOUS BLOOD GAS Routine 03/20/2021 7:40 Results for W/COOX, B AM VENDOR QUALITY SUPERVISOR this procedure are in the results section. CALCIUM, IONIZED, S/B Routine 03/20/2021 7:40 Res ults for AM VENDOR QUALITY SUPERVISOR this procedure are in the results section. COMPREHENSIVE Routine 03/20/2021 7:40 Results for METABOLIC PANEL, S/P AM VENDOR QUALITY SUPERVISOR this pr ocedure are in the results section. ADULT OXYGEN THERAPY Routine 03/19/2021 8:01 PM VENDOR QUALITY SUPERVISOR PULSE OXIMETRY, Routine 03/19/2021 8:01 CONTINUOUS PM VENDOR QUALITY SUPERVISOR TRANSFUSE FRESH FROZEN Routine 03/19/2021 5:08 PLASMA PM VENDOR QUALITY SUPERVISOR PH BLOOD GAS Routine 03/19/2021 3:04 Results for PM VENDOR QUALITY SUPERVISOR this procedure are in the results section. 25-HYDROXYVITAMIN D2 Routine 03/19/2021 3:04 Resu lts for AND D3, S PM VENDOR QUALITY SUPERVISOR this procedure are in the results section. POTASSIUM, S/P Timed 03/19/2021 3:04 Results fo r PM VENDOR QUALITY SUPERVISOR this procedure are in the results section. PARATHYROID HORMONE Routine 03/19/2021 3:04 Resul ts for (PTH), S PM VENDOR QUALITY SUPERVISOR this procedure are in the results section. CALCIUM, IONIZED, S/B Routine 03/19/2021 3:04 Res ults for PM VENDOR QUALITY SUPERVISOR this procedure are in the results section. TRANSFUSE RED BLOOD Routine 03/19/2021 CELLS 12:49 PM VENDOR QUALITY SUPERVISOR (TTE) 2D ECHO DOPPLER Routine 03/19/2021 Result s for COLOR AND CONTRAST 12:39 PM VENDOR QUALITY SUPERVISOR this proc edure are in the results section. ADULT OXYGEN THERAPY Routine 03/19/2021 8:01 AM VENDOR QUALITY SUPERVISOR PULSE OXIMETRY, Routine 03/19/2021 8:01 CONTINUOUS AM VENDOR QUALITY SUPERVISOR PROTHROMBIN TIME (PT), Routine 03/19/2021 7:39 Re sults for P AM VENDOR QUALITY SUPERVISOR this procedure are in the results section. CBC WITH DIFFERENTIAL, Routine 03/19/2021 7:39 Re sults for B AM V[employer]OR QUALITY SUPERVISOR this procedure are in the results section. PHOSPHORUS Routine 03/19/2021 7:39 Results for (INORGANIC), S AM VENDOR QUALITY SUPERVISOR this procedur e are in the results section. MAGNESIUM, S Routine 03/19/2021 7:39 Results for AM VENDOR QUALITY SUPERVISOR this procedure are in the results section. AMMONIA Routine 03/19/2021 7:39 Results for AM VENDOR QUALITY SUPERVISOR this procedure are in the results section. COMPREHENSIVE Routine 03/19/2021 7:39 Results for METABOLIC PANEL, S/P AM V[employer]OR QUALITY SUPERVISOR this pr ocedure are in the results section. BILIRUBIN DIRECT, S/P Routine 03/19/2021 7:38 Res ults for AM V[employer]OR QUALITY SUPERVISOR this procedure are in the results section. ECG Routine 03/19/2021 6:44 Results for AM VENDOR QUALITY SUPERVISOR this procedure are in the results section. ADULT OXYGEN THERAPY Routine 03/18/2021 8:01 PM VENDOR QUALITY SUPERVISOR PULSE OXIMETRY, Routine 03/18/2021 8:01 CONTINUOUS PM VENDOR QUALITY SUPERVISOR HEMOGLOBIN, B Routine 03/18/2021 7:00 Results for PM VENDOR QUALITY SUPERVISOR this procedure are in the results section. AMMONIA Routine 03/18/2021 6:59 Results for PM VENDOR QUALITY SUPERVISOR this procedure are in the results section. PROTHROMBIN TIME (PT), Routine 03/18/2021 8:35 Re sults for P AM VENDOR QUALITY SUPERVISOR this procedure are in the results section. CBC WITH DIFFERENTIAL, Routine 03/18/2021 8:35 Re sults for B AM VENDOR QUALITY SUPERVISOR this procedure are in the results section. COMPREHENSIVE Routine 03/18/2021 8:35 Results for METABOLIC PANEL, S/P AM VENDOR QUALITY SUPERVISOR this pr ocedure are in the results section. ADULT OXYGEN THERAPY Routine 03/18/2021 8:02 AM VENDOR QUALITY SUPERVISOR PULSE OXIMETRY, Routine 03/18/2021 8:02 CONTINUOUS AM VENDOR QUALITY SUPERVISOR ADULT OXYGEN THERAPY Routine 03/17/2021 8:01 PM VENDOR QUALITY SUPERVISOR PULSE OXIMETRY, Routine 03/17/2021 8:01 CONTINUOUS PM VENDOR QUALITY SUPERVISOR ADULT OXYGEN THERAPY Routine 03/17/2021 8:01 AM VENDOR QUALITY SUPERVISOR PULSE OXIMETRY, Routine 03/17/2021 8:01 CONTINUOUS AM VENDOR QUALITY SUPERVISOR CBC WITH DIFFERENTIAL, Routine 03/17/2021 6:35 Re sults for B AM VENDOR QUALITY SUPERVISOR this procedure are in the results section. MAGNESIUM, S Routine 03/17/2021 6:35 Results for AM VENDOR QUALITY SUPERVISOR this procedure are in the results section. BASIC METABOLIC PANEL, Routine 03/17/2021 6:35 Re sults for S/P AM VENDOR QUALITY SUPERVISOR this procedure are in the results section. ADULT OXYGEN THERAPY Routine 03/16/2021 8:00 PM VENDOR QUALITY SUPERVISOR PULSE OXIMETRY, Routine 03/16/2021 8:00 CONTINUOUS PM VENDOR QUALITY SUPERVISOR HEMOGLOBIN, B Timed 03/16/2021 4:14 Results for PM VENDOR QUALITY SUPERVISOR this procedure are in the results section. HEMATOCRIT, B Timed 03/16/2021 4:14 Results for PM VENDOR QUALITY SUPERVISOR this procedure are in the results section. HEMOGLOBIN, B STAT 03/16/2021 Results for 12:58 PM VENDOR QUALITY SUPERVISOR this procedure are in the results section. HEMATOCRIT, B STAT 03/16/2021 Results for 12:58 PM VENDOR QUALITY SUPERVISOR this procedure are in the results section. TRANSFUSE RED BLOOD Routine 03/16/2021 CELLS 11:13 AM VENDOR QUALITY SUPERVISOR TRANSFUSE RED BLOOD Routine 03/16/2021 CELLS 10:32 AM VENDOR QUALITY SUPERVISOR TRANSFUSE FRESH FROZEN Routine 03/16/2021 9:58 PLASMA AM VENDOR QUALITY SUPERVISOR TRANSFUSE FRESH FROZEN Routine 03/16/2021 9:20 PLASMA AM VENDOR QUALITY SUPERVISOR ADULT OXYGEN THERAPY Routine 03/16/2021 8:00 AM VENDOR QUALITY SUPERVISOR PULSE OXIMETRY, Routine 03/16/2021 8:00 CONTINUOUS AM VENDOR QUALITY SUPERVISOR TRANSFUSE RED BLOOD Routine 03/16/2021 7:35 CELLS AM VENDOR QUALITY SUPERVISOR ACTIVATED PARTIAL STAT 03/16/2021 7:32 Results for THROMBOPLASTIN TIME AM VENDOR QUALITY SUPERVISOR this pro cedure (APTT), P are in the results section. PROTHROMBIN TIME (PT), STAT 03/16/2021 7:32 Re sults for P AM VENDOR QUALITY SUPERVISOR this procedure are in the results section. FIBRINOGEN, P STAT 03/16/2021 7:32 Results for AM VENDOR QUALITY SUPERVISOR this procedure are in the results section. HEMOGLOBIN, B STAT 03/16/2021 7:31 Results for AM VENDOR QUALITY SUPERVISOR this procedure are in the results section. TESTING LOCATION STAT 03/16/2021 5:44 Results for AM VENDOR QUALITY SUPERVISOR this procedure are in the results section. PREPARE FRESH FROZEN STAT 03/16/2021 5:44 PLASMA AM VENDOR QUALITY SUPERVISOR PREPARE FRESH FROZEN STAT 03/16/2021 5:44 PLASMA AM VENDOR QUALITY SUPERVISOR PREPARE RED BLOOD STAT 03/16/2021 5:44 CELLS AM VENDOR QUALITY SUPERVISOR PREPARE RED BLOOD STAT 03/16/2021 5:44 CELLS AM VENDOR QUALITY SUPERVISOR PREPARE RED BLOOD STAT 03/16/2021 5:44 CELLS AM VENDOR QUALITY SUPERVISOR TYPE AND SCREEN STAT 03/16/2021 5:44 Results f or AM VENDOR QUALITY SUPERVISOR this procedure are in the results section. GLUCOSE POCT, B Routine 03/16/2021 5:43 Results f or AM VENDOR QUALITY SUPERVISOR this procedure are in the results section. PH BLOOD GAS Routine 03/16/2021 4:57 Results for AM VENDOR QUALITY SUPERVISOR this procedure are in the results section. CALCIUM, IONIZED, S/B Routine 03/16/2021 4:57 Res ults for AM VENDOR QUALITY SUPERVISOR this procedure are in the results section. CBC WITHOUT Timed 03/16/2021 4:21 Results for DIFFERENTIAL, B AM VENDOR QUALITY SUPERVISOR this procedu re are in the results section. PHOSPHORUS Timed 03/16/2021 4:21 Results for (INORGANIC), S AM VENDOR QUALITY SUPERVISOR this procedur e are in the results section. MAGNESIUM, S Timed 03/16/2021 4:21 Results for AM VENDOR QUALITY SUPERVISOR this procedure are in the results section. COMPREHENSIVE Timed 03/16/2021 4:21 Results for METABOLIC PANEL, S/P AM VENDOR QUALITY SUPERVISOR this pr ocedure are in the results section. TRANSFUSE FRESH FROZEN Routine 03/16/2021 3:30 PLASMA AM VENDOR QUALITY SUPERVISOR TRANSFUSE Routine 03/16/2021 3:18 CRYOPRECIPITATE AM VENDOR QUALITY SUPERVISOR TRANSFUSE Routine 03/16/2021 2:42 CRYOPRECIPITATE AM VENDOR QUALITY SUPERVISOR CT ABDOMEN PELVIS WITH RAD - Routine 03/16/2021 2:36 R esults for IV CONTRAST (most inpatients AM VENDOR QUALITY SUPERVISOR this proced ure and all are in the outpatients) results section. TEST, POCT, Routine 03/16/2021 2:11 Res ults for U (LAB) AM VENDOR QUALITY SUPERVISOR this procedure are in the results section. PREPARE FRESH FROZEN Routine 03/16/2021 2:05 PLASMA AM VENDOR QUALITY SUPERVISOR PREPARE Routine 03/16/2021 2:05 CRYOPRECIPITATE AM VENDOR QUALITY SUPERVISOR ACTIVATED PARTIAL STAT 03/16/2021 1:11 Results for THROMBOPLASTIN TIME AM VENDOR QUALITY SUPERVISOR this pro cedure (APTT), P are in the results section. PROTHROMBIN TIME (PT), STAT 03/16/2021 1:11 Re sults for P AM VENDOR QUALITY SUPERVISOR this procedure are in the results section. FIBRINOGEN, P STAT 03/16/2021 1:11 Results for AM VENDOR QUALITY SUPERVISOR this procedure are in the results section. HEMOGLOBIN, B Timed 03/16/2021 Results for 12:08 AM VENDOR QUALITY SUPERVISOR this procedure are in the results section. POTASSIUM, S/P Routine 03/16/2021 Results for 12:08 AM VENDOR QUALITY SUPERVISOR this procedure are in the results section. GLUCOSE POCT, B Routine 03/15/2021 Results for 11:33 PM VENDOR QUALITY SUPERVISOR this procedure are in the results section. TRANSFUSE RED BLOOD Routine 03/15/2021 9:33 CELLS PM VENDOR QUALITY SUPERVISOR HEMOGLOBIN, B Timed 03/15/2021 8:11 Results for PM VENDOR QUALITY SUPERVISOR this procedure are in the results section. ADULT OXYGEN THERAPY Routine 03/15/2021 8:01 PM VENDOR QUALITY SUPERVISOR PULSE OXIMETRY, Routine 03/15/2021 8:01 CONTINUOUS PM VENDOR QUALITY SUPERVISOR HEMOGLOBIN, B Timed 03/15/2021 4:52 Results for PM VENDOR QUALITY SUPERVISOR this procedure are in the results section. HEMATOCRIT, B Timed 03/15/2021 4:52 Results for PM VENDOR QUALITY SUPERVISOR this procedure are in the results section. TRANSFUSE FRESH FROZEN Routine 03/15/2021 3:52 PLASMA PM VENDOR QUALITY SUPERVISOR HEMOGLOBIN, B Timed 03/15/2021 2:29 Results for PM VENDOR QUALITY SUPERVISOR this procedure are in the results section. HEMATOCRIT, B Timed 03/15/2021 2:29 Results for PM VENDOR QUALITY SUPERVISOR this procedure are in the results section. PHOSPHORUS Routine 03/15/2021 2:29 Results for (INORGANIC), S PM VENDOR QUALITY SUPERVISOR this procedur e are in the results section. MAGNESIUM, S Routine 03/15/2021 2:29 Results for PM VENDOR QUALITY SUPERVISOR this procedure are in the results section. BASIC METABOLIC PANEL, Timed 03/15/2021 2:29 Re sults for S/P PM VENDOR QUALITY SUPERVISOR this procedure are in the results section. RESPIRATORY ASSESS AND Routine 03/15/2021 2:00 TREAT PM VENDOR QUALITY SUPERVISOR TRANSFUSE FRESH FROZEN Routine 03/15/2021 1:47 PLASMA PM VENDOR QUALITY SUPERVISOR PREPARE FRESH FROZEN Routine 03/15/2021 PLASMA 12:06 PM VENDOR QUALITY SUPERVISOR GLUCOSE POCT, B Routine 03/15/2021 Results for 11:57 AM VENDOR QUALITY SUPERVISOR this procedure are in the results section. TRANSFUSE RED BLOOD Routine 03/15/2021 CELLS 11:00 AM VENDOR QUALITY SUPERVISOR ADULT OXYGEN THERAPY Routine 03/15/2021 8:01 AM VENDOR QUALITY SUPERVISOR PULSE OXIMETRY, Routine 03/15/2021 8:01 CONTINUOUS AM VENDOR QUALITY SUPERVISOR GLUCOSE POCT, B Routine 03/15/2021 6:14 Results f or AM VENDOR QUALITY SUPERVISOR this procedure are in the results section. PROTHROMBIN TIME (PT), Routine 03/15/2021 4:18 Re sults for P AM VENDOR QUALITY SUPERVISOR this procedure are in the results section. CBC WITHOUT Routine 03/15/2021 4:18 Results for DIFFERENTIAL, B AM VENDOR QUALITY SUPERVISOR this procedu re are in the results section. PHOSPHORUS Routine 03/15/2021 4:18 Results for (INORGANIC), S AM VENDOR QUALITY SUPERVISOR this procedur e are in the results section. MAGNESIUM, S Routine 03/15/2021 4:18 Results for AM VENDOR QUALITY SUPERVISOR this procedure are in the results section. COMPREHENSIVE Routine 03/15/2021 4:18 Results for METABOLIC PANEL, S/P AM VENDOR QUALITY SUPERVISOR this pr ocedure are in the results section. GLUCOSE POCT, B Routine 03/14/2021 Results for 11:43 PM VENDOR QUALITY SUPERVISOR this procedure are in the results section. ADULT OXYGEN THERAPY Routine 03/14/2021 8:01 PM VENDOR QUALITY SUPERVISOR PULSE OXIMETRY, Routine 03/14/2021 8:01 CONTINUOUS PM VENDOR QUALITY SUPERVISOR GLUCOSE POCT, B Routine 03/14/2021 6:25 Results f or PM VENDOR QUALITY SUPERVISOR this procedure are in the results section. RESPIRATORY ASSESS AND Routine 03/14/2021 2:00 TREAT PM VENDOR QUALITY SUPERVISOR GLUCOSE POCT, B Routine 03/14/2021 Results for 11:32 AM VENDOR QUALITY SUPERVISOR this procedure are in the results section. PATIENT STATUS STAT 03/14/2021 Results for 11:00 AM VENDOR QUALITY SUPERVISOR this procedure are in the results section. ABG W/COOX STAT 03/14/2021 Results for 11:00 AM VENDOR QUALITY SUPERVISOR this procedure are in the results section. PROTHROMBIN TIME (PT), Routine 03/14/2021 9:22 Re sults for P AM VENDOR QUALITY SUPERVISOR this procedure are in the results section. ADULT OXYGEN THERAPY Routine 03/14/2021 8:01 AM VENDOR QUALITY SUPERVISOR PULSE OXIMETRY, Routine 03/14/2021 8:01 CONTINUOUS AM VENDOR QUALITY SUPERVISOR GLUCOSE POCT, B Routine 03/14/2021 6:28 Results f or AM VENDOR QUALITY SUPERVISOR this procedure are in the results section. PATIENT STATUS Routine 03/14/2021 5:41 Results fo r AM VENDOR QUALITY SUPERVISOR this procedure are in the results section. PH BLOOD GAS Routine 03/14/2021 5:41 Results for AM VENDOR QUALITY SUPERVISOR this procedure are in the results section. ABG W/COOX Routine 03/14/2021 5:41 Results for AM VENDOR QUALITY SUPERVISOR this procedure are in the results section. CBC WITHOUT Routine 03/14/2021 5:41 Results for DIFFERENTIAL, B AM VENDOR QUALITY SUPERVISOR this procedu re are in the results section. PHOSPHORUS Routine 03/14/2021 5:41 Results for (INORGANIC), S AM VENDOR QUALITY SUPERVISOR this procedur e are in the results section. MAGNESIUM, S Routine 03/14/2021 5:41 Results for AM VENDOR QUALITY SUPERVISOR this procedure are in the results section. CALCIUM, IONIZED, S/B Routine 03/14/2021 5:41 Res ults for AM VENDOR QUALITY SUPERVISOR this procedure are in the results section. BASIC METABOLIC PANEL, Routine 03/14/2021 5:41 Re sults for S/P AM VENDOR QUALITY SUPERVISOR this procedure are in the results section. HEPATIC FUNCTION Routine 03/14/2021 5:40 Results for PANEL, S AM VENDOR QUALITY SUPERVISOR this procedure are in the results section. DX CHEST PORTABLE 1 RAD - Routine 03/14/2021 4:33 Resu lts for VIEW (most inpatients AM VENDOR QUALITY SUPERVISOR this proced ure and all are in the outpatients) results section. GLUCOSE POCT, B Routine 03/14/2021 Results for 12:06 AM VENDOR QUALITY SUPERVISOR this procedure are in the results section. ADULT OXYGEN THERAPY Routine 03/13/2021 8:01 PM VENDOR QUALITY SUPERVISOR PULSE OXIMETRY, Routine 03/13/2021 8:01 CONTINUOUS PM VENDOR QUALITY SUPERVISOR HEMOGLOBIN, B Routine 03/13/2021 6:29 Results for PM VENDOR QUALITY SUPERVISOR this procedure are in the results section. GLUCOSE POCT, B Routine 03/13/2021 6:16 Results f or PM VENDOR QUALITY SUPERVISOR this procedure are in the results section. HEMOGLOBIN, B Routine 03/13/2021 4:28 Results for PM VENDOR QUALITY SUPERVISOR this procedure are in the results section. MECHANICAL VENTILATOR Routine 03/13/2021 4:00 PM VENDOR QUALITY SUPERVISOR RESPIRATORY ASSESS AND Routine 03/13/2021 2:00 TREAT PM VENDOR QUALITY SUPERVISOR MECHANICAL VENTILATOR Routine 03/13/2021 12:00 PM VENDOR QUALITY SUPERVISOR GLUCOSE POCT, B Routine 03/13/2021 Results for 11:46 AM VENDOR QUALITY SUPERVISOR this procedure are in the results section. TRANSFUSE RED BLOOD Routine 03/13/2021 CELLS 10:11 AM VENDOR QUALITY SUPERVISOR IRON AND TOT Routine 03/13/2021 8:28 Results for IRON-BINDING CAPACITY, AM VENDOR QUALITY SUPERVISOR this procedure S/P are in the results section. FOLATE, S Routine 03/13/2021 8:28 Results for AM VENDOR QUALITY SUPERVISOR this procedure are in the results section. FERRITIN, S Routine 03/13/2021 8:28 Results for AM VENDOR QUALITY SUPERVISOR this procedure are in the results section. VITAMIN B12 ASSAY, S Routine 03/13/2021 8:28 Resu lts for AM VENDOR QUALITY SUPERVISOR this procedure are in the results section. ADULT OXYGEN THERAPY Routine 03/13/2021 8:01 AM VENDOR QUALITY SUPERVISOR PULSE OXIMETRY, Routine 03/13/2021 8:01 CONTINUOUS AM VENDOR QUALITY SUPERVISOR MECHANICAL VENTILATOR Routine 03/13/2021 8:01 AM VENDOR QUALITY SUPERVISOR PATIENT STATUS Routine 03/13/2021 5:37 Results fo r AM VENDOR QUALITY SUPERVISOR this procedure are in the results section. ABG W/COOX Routine 03/13/2021 5:37 Results for AM VENDOR QUALITY SUPERVISOR this procedure are in the results section. CBC WITH DIFFERENTIAL, Routine 03/13/2021 5:37 Re sults for B AM V[employer]OR QUALITY SUPERVISOR this procedure are in the results section. TRIGLYCERIDES, S Routine 03/13/2021 5:37 Results for AM VENDOR QUALITY SUPERVISOR this procedure are in the results section. PHOSPHORUS Routine 03/13/2021 5:37 Results for (INORGANIC), S AM VENDOR QUALITY SUPERVISOR this procedur e are in the results section. MAGNESIUM, S Routine 03/13/2021 5:37 Results for AM VENDOR QUALITY SUPERVISOR this procedure are in the results section. AMMONIA Routine 03/13/2021 5:37 Results for AM VENDOR QUALITY SUPERVISOR this procedure are in the results section. COMPREHENSIVE Routine 03/13/2021 5:37 Results for METABOLIC PANEL, S/P AM VENDOR QUALITY SUPERVISOR this pr ocedure are in the results section. DX CHEST PORTABLE 1 RAD - Routine 03/13/2021 4:32 Resu lts for VIEW (most inpatients AM VENDOR QUALITY SUPERVISOR this proced ure and all are in the outpatients) results section. MECHANICAL VENTILATOR Routine 03/13/2021 4:00 AM VENDOR QUALITY SUPERVISOR BASIC METABOLIC PANEL, Timed 03/13/2021 1:20 Re sults for S/P AM VENDOR QUALITY SUPERVISOR this procedure are in the results section. HEMOGLOBIN, B Timed 03/13/2021 Results for 12:11 AM VENDOR QUALITY SUPERVISOR this procedure are in the results section. MECHANICAL VENTILATOR Routine 03/13/2021 12:04 AM VENDOR QUALITY SUPERVISOR GLUCOSE POCT, B Routine 03/12/2021 Results for 11:44 PM VENDOR QUALITY SUPERVISOR this procedure are in the results section. ETHYL GLUCURONIDE SCRN Routine 03/12/2021 Resul ts for W/REFLEX, U 11:12 PM VENDOR QUALITY SUPERVISOR this procedure are in the results section. LDA ANE ENDOTRACHEAL Routine 03/12/2021 Change Mental Result s for AIRWAY 10:30 PM VENDOR QUALITY SUPERVISOR Status this procedure Cirrhosis are in the Alcoholic (HCC) results section. AZ INTUB W ETT Routine 03/12/2021 Change Mental Results for 10:30 PM VENDOR QUALITY SUPERVISOR Status this procedure Cirrhosis are in the Alcoholic (HCC) results section. ADULT OXYGEN THERAPY Routine 03/12/2021 8:01 PM VENDOR QUALITY SUPERVISOR PULSE OXIMETRY, Routine 03/12/2021 8:01 CONTINUOUS PM VENDOR QUALITY SUPERVISOR MECHANICAL VENTILATOR Routine 03/12/2021 8:01 PM VENDOR QUALITY SUPERVISOR GLUCOSE POCT, B Routine 03/12/2021 6:11 Results f or PM VENDOR QUALITY SUPERVISOR this procedure are in the results section. AZ PARACENTESIS ABD WO Routine 03/12/2021 6:02 Change Mental R esults for IMG PM VENDOR QUALITY SUPERVISOR Status this procedure Cirrhosis are in the Alcoholic (HCC) results section. THORACENTESIS Routine 03/12/2021 6:02 Change Mental Results fo r PM VENDOR QUALITY SUPERVISOR Status this procedure Cirrhosis are in the Alcoholic (HCC) results section. MC ANE CENTRAL LINE Routine 03/12/2021 6:02 Change Mental Resu lts for GENERIC PERFORMABLE PM VENDOR QUALITY SUPERVISOR Status this procedure Cirrhosis are in the Alcoholic (HCC) results section. LDA ANE CENTRAL LINE Routine 03/12/2021 6:02 Change Mental Res ults for TRIPLE LUMEN PM VENDOR QUALITY SUPERVISOR Status this procedure Cirrhosis are in the Alcoholic (HCC) results section. AZ US GUIDE VASC Routine 03/12/2021 6:02 Change Mental Results for ACCESS PM VENDOR QUALITY SUPERVISOR Status this procedure Cirrhosis are in the Alcoholic (HCC) results section. AZ INS NON-ALEN CVC Routine 03/12/2021 6:02 Change Mental Resul ts for >5YR PM VENDOR QUALITY SUPERVISOR Status this procedure Cirrhosis are in the Alcoholic (HCC) results section. PH BLOOD GAS STAT 03/12/2021 5:35 Results for PM VENDOR QUALITY SUPERVISOR this procedure are in the results section. HEMOGLOBIN, B STAT 03/12/2021 5:35 Results for PM VENDOR QUALITY SUPERVISOR this procedure are in the results section. PHOSPHORUS STAT 03/12/2021 5:35 Results for (INORGANIC), S PM VENDOR QUALITY SUPERVISOR this procedur e are in the results section. MAGNESIUM, S STAT 03/12/2021 5:35 Results for PM VENDOR QUALITY SUPERVISOR this procedure are in the results section. CALCIUM, IONIZED, S/B STAT 03/12/2021 5:35 Res ults for PM VENDOR QUALITY SUPERVISOR this procedure are in the results section. AMMONIA STAT 03/12/2021 5:35 Results for PM VENDOR QUALITY SUPERVISOR this procedure are in the results section. COMPREHENSIVE STAT 03/12/2021 5:35 Results for METABOLIC PANEL, S/P PM VENDOR QUALITY SUPERVISOR this pr ocedure are in the results section. TRANSFUSE RED BLOOD Routine 03/12/2021 4:08 CELLS PM VENDOR QUALITY SUPERVISOR MECHANICAL VENTILATOR Routine 03/12/2021 4:00 PM VENDOR QUALITY SUPERVISOR PROTEIN, TOTAL, BF Routine 03/12/2021 3:46 Result s for PM VENDOR QUALITY SUPERVISOR this procedure are in the results section. BACTERIAL CULTURE, Routine 03/12/2021 3:46 Result s for AEROBIC + SUSC PM VENDOR QUALITY SUPERVISOR this procedur e are in the results section. CELL COUNT AND Routine 03/12/2021 3:46 Results fo r DIFFERENTIAL, BF PM VENDOR QUALITY SUPERVISOR this proced ure are in the results section. GRAM STAIN Routine 03/12/2021 3:46 Results for PM VENDOR QUALITY SUPERVISOR this procedure are in the results section. BACTERIAL CULTURE, Routine 03/12/2021 3:46 Result s for ANAEROBIC + SUSC PM VENDOR QUALITY SUPERVISOR this proced ure are in the results section. ALBUMIN, BODY FLUID Routine 03/12/2021 3:46 Resul ts for PM VENDOR QUALITY SUPERVISOR this procedure are in the results section. AUTOIMMUNE LIVER Routine 03/12/2021 2:57 Results for DISEASE PANEL, S PM VENDOR QUALITY SUPERVISOR this proced ure are in the results section. [id number], S Routine 03/12/2021 2:57 Re sults for PM VENDOR QUALITY SUPERVISOR this procedure are in the results section. CERULOPLASMIN, S Routine 03/12/2021 2:57 Results for PM VENDOR QUALITY SUPERVISOR this procedure are in the results section. GLUCOSE POCT, B Routine 03/12/2021 2:06 Results f or PM VENDOR QUALITY SUPERVISOR this procedure are in the results section. RESPIRATORY ASSESS AND Routine 03/12/2021 2:00 TREAT PM VENDOR QUALITY SUPERVISOR CT ABDOMEN PELVIS WITH RAD - Emergent 03/12/2021 1:50 Results for IV CONTRAST (Fastest; for the PM VENDOR QUALITY SUPERVISOR this proce dure most critically are in the ill patients) results section. CT CHEST WITH IV RAD - Emergent 03/12/2021 1:50 Result s for CONTRAST (Fastest; for the PM VENDOR QUALITY SUPERVISOR this proce dure most critically are in the ill patients) results section. CT HEAD WITHOUT IV RAD - Emergent 03/12/2021 1:49 Resu lts for CONTRAST (Fastest; for the PM VENDOR QUALITY SUPERVISOR this proce dure most critically are in the ill patients) results section. CYTOLOGY NON-PROPOSITION PLAYER Routine 03/12/2021 1:11 Results for PM VENDOR QUALITY SUPERVISOR this procedure are in the results section. ECG Routine 03/12/2021 1:01 Results for PM VENDOR QUALITY SUPERVISOR this procedure are in the results section. DX CHEST PORTABLE 1 RAD - Semiurgent 03/12/2021 1:00 R esults for VIEW (Fast; most ED PM VENDOR QUALITY SUPERVISOR this procedur e patients; some are in the inpatients) results section. TESTING LOCATION Routine 03/12/2021 Results for 12:59 PM VENDOR QUALITY SUPERVISOR this procedure are in the results section. LACTATE, B STAT 03/12/2021 Results for 12:59 PM VENDOR QUALITY SUPERVISOR this procedure are in the results section. PATIENT STATUS STAT 03/12/2021 Results for 12:59 PM VENDOR QUALITY SUPERVISOR this procedure are in the results section. ABG W/COOX STAT 03/12/2021 Results for 12:59 PM VENDOR QUALITY SUPERVISOR this procedure are in the results section. PREPARE RED BLOOD Routine 03/12/2021 CELLS 12:59 PM VENDOR QUALITY SUPERVISOR PREPARE RED BLOOD Routine 03/12/2021 CELLS 12:59 PM VENDOR QUALITY SUPERVISOR PREPARE RED BLOOD Routine 03/12/2021 CELLS 12:59 PM VENDOR QUALITY SUPERVISOR PREPARE RED BLOOD Routine 03/12/2021 CELLS 12:59 PM VENDOR QUALITY SUPERVISOR TYPE AND SCREEN Routine 03/12/2021 Results for 12:59 PM VENDOR QUALITY SUPERVISOR this procedure are in the results section. LACTATE DEHYDROGENASE Routine 03/12/2021 Result s for (LD), S 12:59 PM VENDOR QUALITY SUPERVISOR this procedure are in the results section. BILIRUBIN DIRECT, S/P Routine 03/12/2021 Result s for 12:59 PM VENDOR QUALITY SUPERVISOR this procedure are in the results section. CYTOLOGY NON-PROPOSITION PLAYER Routine 03/12/2021 Results for 12:39 PM VENDOR QUALITY SUPERVISOR this procedure are in the results section. PROTEIN, TOTAL, BF Routine 03/12/2021 Results f or 12:35 PM [employer]OR QUALITY SUPERVISOR this procedure are in the results section. LACTATE DEHYDROGENASE Routine 03/12/2021 Result s for (LD), BF 12:35 PM [employer]OR [employer]ALITY SUPERVISOR this procedure are in the results section. BACTERIAL CULTURE, STAT 03/12/2021 Results f or AEROBIC + SUSC 12:34 PM V[employer]OR QUALITY SUPERVISOR this procedur e are in the results section. CELL COUNT AND STAT 03/12/2021 Results for DIFFERENTIAL, BF 12:34 PM VENDOR QUALITY SUPERVISOR this proced ure are in the results section. GRAM STAIN STAT 03/12/2021 Results for 12:34 PM VENDOR QUALITY SUPERVISOR this procedure are in the results section. BACTERIAL CULTURE, STAT 03/12/2021 Results f or ANAEROBIC + SUSC 12:34 PM VENDOR QUALITY SUPERVISOR this proced ure are in the results section. GLUCOSE, BODY FLUID STAT 03/12/2021 Results for 12:34 PM VENDOR QUALITY SUPERVISOR this procedure are in the results section. 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 SARS CORONAVIRUS-2 Routine 03/12/2021 Results f or RNA, V 11:00 AM VENDOR QUALITY SUPERVISOR this procedure are in the results section. LDA ANE ARTERIAL LINE Routine 03/12/2021 Change Mental Resul ts for INSERTION 10:45 AM VENDOR QUALITY SUPERVISOR Status this procedure Cirrhosis are in the Alcoholic (HCC) results section. AZ ARTL CATH/CNULA Routine 03/12/2021 Change Mental Results for MONITOR PERC 10:45 AM VENDOR QUALITY SUPERVISOR Status this procedure Cirrhosis are in the Alcoholic (HCC) results section. PULSE OXIMETRY, Routine 03/12/2021 8:02 CONTINUOUS AM VENDOR QUALITY SUPERVISOR LACTATE, B Timed 03/12/2021 7:10 Results for AM VENDOR QUALITY SUPERVISOR this procedure are in the results section. PATIENT STATUS STAT 03/12/2021 7:10 Results fo r AM VENDOR QUALITY SUPERVISOR this procedure are in the results section. ABG W/COOX STAT 03/12/2021 7:10 Results for AM VENDOR QUALITY SUPERVISOR this procedure are in the results section. BACTERIA / RAUDEL Routine 03/12/2021 7:10 Result s for CULTURE, BLOOD AM VENDOR QUALITY SUPERVISOR this procedur e are in the results section. DX CHEST PORTABLE 1 RAD - Semiurgent 03/12/2021 6:24 R esults for VIEW (Fast; most ED AM VENDOR QUALITY SUPERVISOR this procedur e patients; some are in the inpatients) results section. URINALYSIS WITH Routine 03/12/2021 6:23 Results f or MICROSCOPIC IF AM VENDOR QUALITY SUPERVISOR this procedur e INDICATED, U are in the results section. HC URINALYSIS AUTO WO Routine 03/12/2021 6:23 Res ults for MICRO AM VENDOR QUALITY SUPERVISOR this procedure are in the results section. DRUG SCREEN URINE Routine 03/12/2021 6:23 Results for AM VENDOR QUALITY SUPERVISOR this procedure are in the results section. NASAL SCREEN FOR MRSA Routine 03/12/2021 6:23 Res ults for BY RAPID PCR AM VENDOR QUALITY SUPERVISOR this procedure are in the results section. HCV AB W/REFLEX TO HCV Timed 03/12/2021 5:58 Re sults for PCR, S AM VENDOR QUALITY SUPERVISOR this procedure are in the results section. HEPATITIS A IGM AB Timed 03/12/2021 5:58 Result s for AM VENDOR QUALITY SUPERVISOR this procedure are in the results section. HEP B CORE AB, IGM Timed 03/12/2021 5:58 Result s for AM VENDOR QUALITY SUPERVISOR this procedure are in the results section. HEPATITIS B SURFACE Timed 03/12/2021 5:58 Resul ts for ANTIGEN AM VENDOR QUALITY SUPERVISOR this procedure are in the results section. AMMONIA Timed 03/12/2021 5:58 Results for AM VENDOR QUALITY SUPERVISOR this procedure are in the results section. LACTATE, B STAT 03/12/2021 5:57 Results for AM VENDOR QUALITY SUPERVISOR this procedure are in the results section. ETHANOL, S STAT 03/12/2021 5:57 Results for AM VENDOR QUALITY SUPERVISOR this procedure are in the results section. PH BLOOD GAS STAT 03/12/2021 5:57 Results for AM VENDOR QUALITY SUPERVISOR this procedure are in the results section. NT-PRO B-TYPE STAT 03/12/2021 5:57 Results for NATRIURETIC PEPTIDE AM VENDOR QUALITY SUPERVISOR this pro cedure (BNP), S are in the results section. BACTERIA / RAUDEL Routine 03/12/2021 5:57 Result s for CULTURE, BLOOD AM VENDOR QUALITY SUPERVISOR this procedur e are in the results section. PROTHROMBIN TIME (PT), STAT 03/12/2021 5:57 Re sults for P AM VENDOR QUALITY SUPERVISOR this procedure are in the results section. CBC WITHOUT STAT 03/12/2021 5:57 Results for DIFFERENTIAL, B AM VENDOR QUALITY SUPERVISOR this procedu re are in the results section. HUMAN CHORIONIC STAT 03/12/2021 5:57 Results f or GONADOTROPIN (HCG), AM VENDOR QUALITY SUPERVISOR this pro cedure EDDI, are in the results section. THYROID-STIMULATING STAT 03/12/2021 5:57 Resul ts for HORMONE-SENSITIVE AM VENDOR QUALITY SUPERVISOR this proce dure (S-TSH) are in the results section. PHOSPHORUS STAT 03/12/2021 5:57 Results for (INORGANIC), S AM VENDOR QUALITY SUPERVISOR this procedur e are in the results section. MAGNESIUM, S STAT 03/12/2021 5:57 Results for AM VENDOR QUALITY SUPERVISOR this procedure are in the results section. LIPASE, S/P STAT 03/12/2021 5:57 Results for AM VENDOR QUALITY SUPERVISOR this procedure are in the results section. CALCIUM, IONIZED, S/B STAT 03/12/2021 5:57 Res ults for AM VENDOR QUALITY SUPERVISOR this procedure are in the results section. ACETAMINOPHEN LEVEL, S STAT 03/12/2021 5:57 Re sults for AM VENDOR QUALITY SUPERVISOR this procedure are in the results section. SALICYLATE LEVEL, S STAT 03/12/2021 5:57 Resul ts for AM VENDOR QUALITY SUPERVISOR this procedure are in the results section. COMPREHENSIVE STAT 03/12/2021 5:57 Results for METABOLIC PANEL, S/P AM VENDOR QUALITY SUPERVISOR this pr ocedure are in the results section. GLUCOSE POCT, B Routine 03/12/2021 5:48 Results f or AM VENDOR QUALITY SUPERVISOR this procedure are in the results section. RESPIRATORY ASSESS AND Routine 03/12/2021 5:37 TREAT AM VENDOR QUALITY SUPERVISOR PULSE OXIMETRY, Routine 03/12/2021 5:37 CONTINUOUS AM VENDOR QUALITY SUPERVISOR PULSE OXIMETRY, Routine 03/12/2021 5:37 CONTINUOUS AM VENDOR QUALITY SUPERVISOR PULSE OXIMETRY, Routine 03/12/2021 5:37 CONTINUOUS AM VENDOR QUALITY SUPERVISOR documented in this encounter Results (ABNORMAL) Prothrombin Time (PT) (03/24/2021 6:15 AM VENDOR QUALITY SUPERVISOR) [facility] Method Time Signature Prothrombin 30.1 (H) 9.4 - 12.5 03/24/2021 [place] Time, P sec 6:52 AM VENDOR QUALITY SUPERVISOR INR 2.7 0.9 - 1.1 03/24/2021 [place] 6:52 AM VENDOR QUALITY SUPERVISOR Comment: ----ADDITIONAL INFORMATION---- Standard intensity warfarin therapeutic range: 2.0 to 3.0 ?? High intensity warfarin therapeutic rang e: 2.5 to 3.5 Specimen Anatomical Collection Method Collection Time Receive d Time (Source) Location / / Volume Laterality Blood (Blood, 03/24/2021 6:15 AM 03/24/20 6:21 Venous) VENDOR QUALITY SUPERVISOR AM VENDOR QUALITY SUPERVISOR Darian Thomas M.D., J.D. LAB BLOOD ADD-ON Performing Organization Address City/State/ZIP Code Phon e Number [facility]- [address] [place] [id number] [place] [address] [place] [address] System in [address] (ABNORMAL) Comprehensive Metabolic Panel (03/24/2021 6:15 AM VENDOR QUALITY SUPERVISOR) Analysis Performed At Patho logist Time Signature Potassium, P 4.1 3.6 - 5.2 03/24/2021 [place] mmol/L 6:54 AM VENDOR QUALITY SUPERVISOR Sodium, P 139 135 - 145 03/24/2021 [place] mmol/L 6:54 AM VENDOR QUALITY SUPERVISOR Chloride, P 108 (H) 98 - 107 03/24/2021 [place] mmol/L 6:54 AM VENDOR QUALITY SUPERVISOR Bicarbonate, P 18 (L) 22 - 29 03/24/2021 [place] mmol/L 6:54 AM VENDOR QUALITY SUPERVISOR Anion Gap, P 13 7 - 15 03/24/2021 [place] 6:54 AM VENDOR QUALITY SUPERVISOR BUN (Blood Urea 6 6 - 21 03/24/2021 [place] Nitrogen), P mg/dL 6:54 AM VENDOR QUALITY SUPERVISOR Creatinine 0.35 (L) 0.59 - 03/24/2021 [place] 1.04 mg/dL 6:54 AM VENDOR QUALITY SUPERVISOR eGFR-Black/Afri >90 >=60 03/24/2021 [place] can [place] mL/min/BSA 6:54 AM VENDOR QUALITY SUPERVISOR Comment: ----ADDITIONAL INFORMATION---- Estimated GFR calculated using the 2009 CKD_EPI creatinine equation. eGFR Non-Black/ >90 >=60 mL/min/BSA 03/24/2021 6:54 AM VENDOR QUALITY SUPERVISOR [place] Comment: ----ADDITIONAL INFORMATION---- Estimated GFR calculated using the 2009 CKD_EPI creatinine equation. Calcium, Total, P 10.3 (H) 8.6 - 10.0 mg/dL 03/24/2021 6:54 AM VENDOR QUALITY SUPERVISOR [place] Glucose, P 120 70 - 140 mg/dL 03/24/2021 6:54 AM VENDOR QUALITY SUPERVISOR M [place] Protein, Total, P 6.5 6.3 - 7.9 g/dL 03/24/2021 6:54 A M VENDOR QUALITY SUPERVISOR [place] Albumin, P 5.3 (H) 3.5 - 5.0 g/dL 03/24/2021 6:54 AM VENDOR QUALITY SUPERVISOR M [place] Aspartate Aminotransferase 46 (H) 8 - 43 U/L 03/24/2021 6 :54 AM VENDOR QUALITY SUPERVISOR [place] (AST), P Alkaline Phosphatase, P 77 35 - 104 U/L 03/24/2021 6: 54 AM VENDOR QUALITY SUPERVISOR [place] Alanine Aminotransferase 20 7 - 45 U/L 03/24/2021 6:5 4 AM VENDOR QUALITY SUPERVISOR [place] (ALT), P Bilirubin, Total, P 7.8 (H) <=1.2 mg/dL 03/24/2021 6:54 AM VENDOR QUALITY SUPERVISOR [place] Specimen Anatomical Collection Method Collection Time Receive d Time (Source) Location / / Volume Laterality Blood (Blood, 03/24/2021 6:15 AM 03/24/20 6:21 Venous) VENDOR QUALITY SUPERVISOR AM VENDOR QUALITY SUPERVISOR Darian Thomas M.D., J.D. LAB BLOOD ADD-ON Performing Organization Address City/State/ZIP Code Phon e Number [facility]- [address] [place] [address] [place] [address] System in [address] (ABNORMAL) CBC without Differential (03/24/2021 6:15 AM VENDOR QUALITY SUPERVISOR) [facility] gist Method Time Signature Hemoglobin 8.7 (L) 11.6 - 03/24/2021 [place] 15.0 g/dL 6:33 AM VENDOR QUALITY SUPERVISOR Hematocrit 26.3 (L) 35.5 - 03/24/2021 [place] 44.9 % 6:33 AM VENDOR QUALITY SUPERVISOR Erythrocytes 2.80 (L) 3.92 - 03/24/2021 [place] 5.13 6:33 AM VENDOR QUALITY SUPERVISOR x10(12)/L MCV 93.9 78.2 - 03/24/2021 [place] 97.9 fL 6:33 AM VENDOR QUALITY SUPERVISOR RBC Distrib Width 21.7 (H) 12.2 - 03/24/2021 [place] 16.1 % 6:33 AM VENDOR QUALITY SUPERVISOR Platelet Count 100 (L) 157 - 371 03/24/2021 [place] x10(9)/L 6:33 AM VENDOR QUALITY SUPERVISOR Leukocytes 10.0 (H) 3.4 - 9.6 03/24/2021 [place] x10(9)/L 6:33 AM VENDOR QUALITY SUPERVISOR Specimen Anatomical Collection Method Collection Time Receive d Time (Source) Location / / Volume Laterality Blood (Blood, 03/24/2021 6:15 AM 03/24/20 6:21 Venous) VENDOR QUALITY SUPERVISOR AM VENDOR QUALITY SUPERVISOR Darian Thomas M.D., J.D. LAB BLOOD ADD-ON Performing Organization Address City/[facility] Code Phon e Number [facility]- [address] [place] [id number] [place] [address] System in [address] Zinc (03/24/2021 6:15 AM VENDOR QUALITY SUPERVISOR) athologist Signature Zinc, S 0.66 0.66 - 1.10 03/25/2021 [facility] mcg/mL 10:45 AM VENDOR QUALITY SUPERVISOR Comment: ----ADDITIONAL INFORMATION---- This test was developed and its performa nce characteristics determined by [facility] in a manner consistent with CLIA requirements. This test has not been cleared or approved by the [place] and Drug Administration. Specimen Anatomical Collection Method Collection Time Receive d Time (Source) Location / / Volume Laterality Blood (Blood, 03/24/2021 6:15 AM 03/25/20 8:18 Venous) VENDOR QUALITY SUPERVISOR AM VENDOR QUALITY SUPERVISOR Darian Thomas M.D., J.D. LAB BLOOD NON ADD-ON Performing Organization Address City/State/ZIP Code Phon e Number [facility] [address] [place], [place] [address] [facility] [place] [address] Laboratory Medicine and Pathology [address] [place] (ABNORMAL) Vitamin A and Vitamin E (03/24/2021 6:15 AM VENDOR QUALITY SUPERVISOR) athologist Signature Vitamin A <5.0 (L) 32.5 - 78.0 03/26/2021 [facility] mcg/dL 10:49 AM VENDOR QUALITY SUPERVISOR Comment: In this sample, the retinol (vitamin A) level indicates a severe deficiency. ----ADDITIONAL INFORMATION---- This test was developed and its performa nce characteristics determined by [facility] in a manner consistent with CLIA requirements. This test has not been cleared or approved by the [place] and Drug Administration. A-Tocopherol, Vitamin E 5.4 (L) 5.5 - 17.0 mg/L 03/27/2021 4:54 AM VENDOR QUALITY SUPERVISOR [facility] Specimen Anatomical Collection Method Collection Time Receive d Time (Source) Location / / Volume Laterality Blood (Blood, 03/24/2021 6:15 AM 03/25/20 3:48 Venous) VENDOR QUALITY SUPERVISOR PM VENDOR QUALITY SUPERVISOR Darian Thomas M.D., J.D. LAB BLOOD NON ADD-ON Performing Organization Address City/[facility] Phon e Number [facility] [address] [address] [place] [address] [address] Laboratory Medicine and Pathology [address] [place] Transfuse Red Blood Cells : (03/23/2021 5:52 PM VENDOR QUALITY SUPERVISOR) Darian Thomas M.D., J.D. BLOOD TRANSFUSION ORDERAB LES Transfuse Red Blood Cells : , 1 Units (03/23/2021 5:52 PM VENDOR QUALITY SUPERVISOR) Darian Thomas M.D., J.D. BLOOD TRANSFUSION ORDERAB LES Testing Location (03/23/2021 1:12 PM VENDOR QUALITY SUPERVISOR) athologist Signature Testing [facility] DEFAULT 03/23/2021 TO Location 1:22 PM VENDOR QUALITY SUPERVISOR Specimen Anatomical Collection Method Collection Time Receive d Time (Source) Location / / Volume Laterality Blood 03/23/2021 1:12 PM 1:21 VENDOR QUALITY SUPERVISOR PM VENDOR QUALITY SUPERVISOR Darian Thomas M.D., J.D. LAB BLOOD BANK TEST ORDER HARVEY Performing Organization Address City/[facility]/ZIP Code Phon e Number [facility]- [address] [place] [phone] [place] [address] System [address] Type and Screen (with reflex Antibody ID) (03/23/2021 1:12 PM VENDOR QUALITY SUPERVISOR) Patholo gist Method Time Signature ABO Group B 03/23/2021 [place] 2:01 PM VENDOR QUALITY SUPERVISOR Rh Type POS 03/23/2021 [place] 2:01 PM VENDOR QUALITY SUPERVISOR Antibody Screen NEG 03/23/2021 [place] 2:01 PM VENDOR QUALITY SUPERVISOR Type & Screen 03/26/2021 03/23/2021 [place] Expiration 23:59 2:01 PM VENDOR QUALITY SUPERVISOR ELXM Eligible Y 03/23/2021 [place] 2:01 PM VENDOR QUALITY SUPERVISOR Specimen Anatomical Collection Method Collection Time Receive d Time (Source) Location / / Volume Laterality Blood (Blood, 03/23/2021 1:12 PM 03/23/20 1:21 Venous) VENDOR QUALITY SUPERVISOR PM VENDOR QUALITY SUPERVISOR Darian Thomas M.D., J.D. LAB BLOOD BANK TEST ORDER HARVEY Performing Organization Address City/[facility] Phon e Number [address] [address] [place] [address] System in [address] (ABNORMAL) Phosphorus Inorganic (03/23/2021 6:43 AM VENDOR QUALITY SUPERVISOR) P athologist Signature Phosphorus 2.4 (L) 2.5 - 4.5 03/23/2021 MK (Inorganic), P mg/dL 7:40 AM VENDOR QUALITY SUPERVISOR Specimen Anatomical Collection Method Collection Time Receive d Time (Source) Location / / Volume Laterality Blood (Blood, 03/23/2021 6:43 AM 03/23/20 6:58 Venous) VENDOR QUALITY SUPERVISOR AM VENDOR QUALITY SUPERVISOR Darian Thomas M.D., J.D. LAB BLOOD ADD-ON Performing Organization Address City/[facility] Phon e Number [address] [address] [place] [address] System in [address] Magnesium (03/23/2021 6:43 AM VENDOR QUALITY SUPERVISOR) P athologist Signature Magnesium, P 1.9 1.7 - 2.3 03/23/2021 [place] mg/dL 7:40 AM VENDOR QUALITY SUPERVISOR Specimen Anatomical Collection Method Collection Time Receive d Time (Source) Location / / Volume Laterality Blood (Blood, 03/23/2021 6:43 AM 03/23/20 6:58 Venous) VENDOR QUALITY SUPERVISOR AM VENDOR QUALITY SUPERVISOR Darian Thomas M.D., J.D. LAB BLOOD ADD-ON Performing Organization Address City/[facility] Phon e Number [facility]- [address] [place] [phone] [place] [address] System in [address] (ABNORMAL) Prothrombin Time (PT) (03/23/2021 6:43 AM VENDOR QUALITY SUPERVISOR) Patholo gist Method Time Signature Prothrombin 31.8 (H) 9.4 - 12.5 03/23/2021 [place] Time, P sec 7:55 AM VENDOR QUALITY SUPERVISOR INR 2.8 0.9 - 1.1 03/23/2021 [place] 7:55 AM VENDOR QUALITY SUPERVISOR Comment: ----ADDITIONAL INFORMATION---- Standard intensity warfarin therapeutic range: 2.0 to 3.0 ?? High intensity warfarin therapeutic rang e: 2.5 to 3.5 Specimen Anatomical Collection Method Collection Time Receive d Time (Source) Location / / Volume Laterality Blood (Blood, 03/23/2021 6:43 AM 03/23/20 6:58 Venous) VENDOR QUALITY SUPERVISOR AM VENDOR QUALITY SUPERVISOR Darian Thomas M.D., J.D. LAB BLOOD ADD-ON Performing Organization Address City/[facility] Code Phon e Number [facility]- [address] [place] [phone] [place] [address] System in [address] (ABNORMAL) Comprehensive Metabolic Panel (03/23/2021 6:43 AM VENDOR QUALITY SUPERVISOR) Analysis Performed At Patho logist Time Signature Potassium, P 3.4 (L) 3.6 - 5.2 03/23/2021 [place] mmol/L 7:40 AM VENDOR QUALITY SUPERVISOR Sodium, P 139 135 - 145 03/23/2021 [place] mmol/L 7:40 AM VENDOR QUALITY SUPERVISOR Chloride, P 106 98 - 107 03/23/2021 [place] mmol/L 7:40 AM VENDOR QUALITY SUPERVISOR Bicarbonate, P 19 (L) 22 - 29 03/23/2021 [place] mmol/L 7:40 AM VENDOR QUALITY SUPERVISOR Anion Gap, P 14 7 - 15 03/23/2021 [place] 7:40 AM VENDOR QUALITY SUPERVISOR BUN (Blood Urea 6 6 - 21 03/23/2021 [place] Nitrogen), P mg/dL 7:40 AM VENDOR QUALITY SUPERVISOR Creatinine 0.37 (L) 0.59 - 03/23/2021 [place] 1.04 mg/dL 7:40 AM VENDOR QUALITY SUPERVISOR eGFR-Black/Afri >90 >=60 03/23/2021 [place] can [place] mL/min/BSA 7:40 AM VENDOR QUALITY SUPERVISOR Comment: ----ADDITIONAL INFORMATION---- Estimated GFR calculated using the 2009 CKD_EPI creatinine equation. eGFR Non-Black/ >90 >=60 mL/min/BSA 03/23/2021 7:40 AM VENDOR QUALITY SUPERVISOR [place] Comment: ----ADDITIONAL INFORMATION---- Estimated GFR calculated using the 2009 CKD_EPI creatinine equation. Calcium, Total, P 10.3 (H) 8.6 - 10.0 mg/dL 03/23/2021 7:40 AM VENDOR QUALITY SUPERVISOR [place] Glucose, P 152 (H) 70 - 140 mg/dL 03/23/2021 7:40 AM VENDOR QUALITY SUPERVISOR M [place] Protein, Total, P 6.3 6.3 - 7.9 g/dL 03/23/2021 7:40 A M VENDOR QUALITY SUPERVISOR [place] Albumin, P 5.3 (H) 3.5 - 5.0 g/dL 03/23/2021 7:40 AM VENDOR QUALITY SUPERVISOR M [place] Aspartate Aminotransferase 51 (H) 8 - 43 U/L 03/23/2021 7 :40 AM VENDOR QUALITY SUPERVISOR [place] (AST), P Alkaline Phosphatase, P 73 35 - 104 U/L 03/23/2021 7: 40 AM VENDOR QUALITY SUPERVISOR [place] Alanine Aminotransferase 21 7 - 45 U/L 03/23/2021 7:4 0 AM VENDOR QUALITY SUPERVISOR [place] (ALT), P Bilirubin, Total, P 6.1 (H) <=1.2 mg/dL 03/23/2021 7:40 AM VENDOR QUALITY SUPERVISOR [place] Specimen Anatomical Collection Method Collection Time Receive d Time (Source) Location / / Volume Laterality Blood (Blood, 03/23/2021 6:43 AM 03/23/20 6:58 Venous) VENDOR QUALITY SUPERVISOR AM VENDOR QUALITY SUPERVISOR Darian Thomas M.D., J.D. LAB BLOOD ADD-ON Performing Organization Address City/[facility] Phon e Number [facility]- [address] [place] [phone] [place] [address] System in [address] (ABNORMAL) CBC without Differential (03/23/2021 6:43 AM VENDOR QUALITY SUPERVISOR) Patholo gist Method Time Signature Hemoglobin 6.8 (L) 11.6 - 03/23/2021 [place] 15.0 g/dL 7:45 AM VENDOR QUALITY SUPERVISOR Hematocrit 21.0 (L) 35.5 - 03/23/2021 [place] 44.9 % 7:45 AM VENDOR QUALITY SUPERVISOR Erythrocytes 2.28 (L) 3.92 - 03/23/2021 [place] 5.13 7:45 AM VENDOR QUALITY SUPERVISOR x10(12)/L MCV 92.1 78.2 - 03/23/2021 [place] 97.9 fL 7:45 AM VENDOR QUALITY SUPERVISOR RBC Distrib Width 22.2 (H) 12.2 - 03/23/2021 [place] 16.1 % 7:45 AM VENDOR QUALITY SUPERVISOR Platelet Count 98 (L) 157 - 371 03/23/2021 [place] x10(9)/L 7:45 AM VENDOR QUALITY SUPERVISOR Leukocytes 9.2 3.4 - 9.6 03/23/2021 [facility] x10(9)/L 7:45 AM VENDOR QUALITY SUPERVISOR Specimen Anatomical Collection Method Collection Time Receive d Time (Source) Location / / Volume Laterality Blood (Blood, 03/23/2021 6:43 AM 03/23/20 6:58 Venous) VENDOR QUALITY SUPERVISOR AM VENDOR QUALITY SUPERVISOR Darain Thomas M.D., J.D. LAB BLOOD ADD-ON Performing Organization Address City/State/ZIP Code Phon e Number [facility]- [address] [place] [phone] [place] [address] (ABNORMAL) Lactate, B (03/22/2021 8:38 AM VENDOR QUALITY SUPERVISOR) P athologist Signature Lactate, B 2.3 (H) 0.5 - 2.2 03/22/2021 [place] mmol/L 8:58 AM VENDOR QUALITY SUPERVISOR Specimen Anatomical Collection Method Collection Time Receive d Time (Source) Location / / Volume Laterality Blood 03/22/2021 8:38 AM 8:50 VENDOR QUALITY SUPERVISOR AM VENDOR QUALITY SUPERVISOR Darian Thomas M.D., J.D. LAB BLOOD NON ADD-ON Performing Organization Address City/State/[facility] Phon e Number [facility]- [address] [place] [address] LAB [place] [phone] System in [address] (ABNORMAL) Ammonia (03/22/2021 8:38 AM VENDOR QUALITY SUPERVISOR) P athologist Signature Ammonia, P 60 (H) <=51 03/22/2021 [place] mcmol/L 9:11 AM VENDOR QUALITY SUPERVISOR Specimen Anatomical Collection Method Collection Time Receive d Time (Source) Location / / Volume Laterality Blood (Blood, 03/22/2021 8:38 AM 03/22/20 8:50 Venous) VENDOR QUALITY SUPERVISOR AM VENDOR QUALITY SUPERVISOR Darian Thomas M.D., J.D. LAB BLOOD NON ADD-ON Performing Organization Address City/[facility] Phon e Number [facility]- [address] [place] [address] [place] [address] (ABNORMAL) Prothrombin Time (PT) (03/22/2021 8:38 AM VENDOR QUALITY SUPERVISOR) Patholo gist Method Time Signature Prothrombin 30.5 (H) 9.4 - 12.5 03/22/2021 [place] Time, P sec 9:24 AM VENDOR QUALITY SUPERVISOR INR 2.7 0.9 - 1.1 03/22/2021 [facility] 9:24 AM VENDOR QUALITY SUPERVISOR Comment: ----ADDITIONAL INFORMATION---- Standard intensity warfarin therapeutic range: 2.0 to 3.0 ?? High intensity warfarin therapeutic rang e: 2.5 to 3.5 Specimen Anatomical Collection Method Collection Time Receive d Time (Source) Location / / Volume Laterality Blood (Blood, 03/22/2021 8:38 AM 03/22/20 8:50 Venous) VENDOR QUALITY SUPERVISOR AM VENDOR QUALITY SUPERVISOR Darian Thomas M.D., J.D. LAB BLOOD ADD-ON Performing Organization Address City/State/ZIP Code Phon e Number [facility]- [address] [place] [address] [place] [address] System in [place] [address] [facility] (ABNORMAL) Comprehensive Metabolic Panel (03/22/2021 8:38 AM VENDOR QUALITY SUPERVISOR) Analysis Performed At Patho logist Time Signature Potassium, P 3.4 (L) 3.6 - 5.2 03/22/2021 [place] mmol/L 9:20 AM VENDOR QUALITY SUPERVISOR Sodium, P 139 135 - 145 03/22/2021 [place] mmol/L 9:20 AM VENDOR QUALITY SUPERVISOR Chloride, P 105 98 - 107 03/22/2021 [facility] mmol/L 9:20 AM VENDOR QUALITY SUPERVISOR Bicarbonate, P 19 (L) 22 - 29 03/22/2021 [facility] mmol/L 9:20 AM VENDOR QUALITY SUPERVISOR Anion Gap, P 15 7 - 15 03/22/2021 [facility] 9:20 AM VENDOR QUALITY SUPERVISOR BUN (Blood Urea 6 6 - 21 03/22/2021 [facility] Nitrogen), P mg/dL 9:20 AM VENDOR QUALITY SUPERVISOR Creatinine 0.40 (L) 0.59 - 03/22/2021 [facility] 1.04 mg/dL 9:20 AM VENDOR QUALITY SUPERVISOR eGFR-Black/Afri >90 >=60 03/22/2021 [place] can [place] mL/min/BSA 9:20 AM VENDOR QUALITY SUPERVISOR Comment: ----ADDITIONAL INFORMATION---- Estimated GFR calculated using the 2009 CKD_EPI creatinine equation. eGFR Non-Black/ >90 >=60 mL/min/BSA 03/22/2021 9:20 AM VENDOR QUALITY SUPERVISOR MKTO Comment: ----ADDITIONAL INFORMATION---- Estimated GFR calculated using the 2009 CKD_EPI creatinine equation. Calcium, Total, P 10.1 (H) 8.6 - 10.0 mg/dL 03/22/2021 9:20 AM VENDOR QUALITY SUPERVISOR MKTO Glucose, P 115 70 - 140 mg/dL 03/22/2021 9:20 AM VENDOR QUALITY SUPERVISOR M KTO Protein, Total, P 6.2 (L) 6.3 - 7.9 g/dL 03/22/2021 9:20 A M VENDOR QUALITY SUPERVISOR MKTO Albumin, P 5.2 (H) 3.5 - 5.0 g/dL 03/22/2021 9:20 AM VENDOR QUALITY SUPERVISOR M KTO Aspartate Aminotransferase 52 (H) 8 - 43 U/L 03/22/2021 9 :20 AM VENDOR QUALITY SUPERVISOR MKTO (AST), P Alkaline Phosphatase, P 59 35 - 104 U/L 03/22/2021 9: 20 AM VENDOR QUALITY SUPERVISOR MKTO Alanine Aminotransferase 20 7 - 45 U/L 03/22/2021 9:2 0 AM VENDOR QUALITY SUPERVISOR MKTO (ALT), P Bilirubin, Total, P 5.9 (H) <=1.2 mg/dL 03/22/2021 9:20 AM VENDOR QUALITY SUPERVISOR MKTO Specimen Anatomical Collection Method Collection Time Receive d Time (Source) Location / / Volume Laterality Blood (Blood, 03/22/2021 8:38 AM 03/22/20 8:50 Venous) VENDOR QUALITY SUPERVISOR AM VENDOR QUALITY SUPERVISOR Darian Thomas M.D., J.D. LAB BLOOD ADD-ON Performing Organization Address City/State/ZIP Code Phon e Number [facility]- [address] [place] [address] [place] [address] System [address] (ABNORMAL) CBC without Differential (03/22/2021 8:38 AM VENDOR QUALITY SUPERVISOR) [facility] gist Method Time Signature Hemoglobin 7.2 (L) 11.6 - 03/22/2021 MKTO 15.0 g/dL 9:11 AM VENDOR QUALITY SUPERVISOR Hematocrit 22.6 (L) 35.5 - 03/22/2021 MKTO 44.9 % 9:11 AM VENDOR QUALITY SUPERVISOR Erythrocytes 2.39 (L) 3.92 - 03/22/2021 MKTO 5.13 9:11 AM VENDOR QUALITY SUPERVISOR x10(12)/L MCV 94.6 78.2 - 03/22/2021 MKTO 97.9 fL 9:11 AM VENDOR QUALITY SUPERVISOR RBC Distrib Width 21.6 (H) 12.2 - 03/22/2021 MKTO 16.1 % 9:11 AM VENDOR QUALITY SUPERVISOR Platelet Count 98 (L) 157 - 371 03/22/2021 MKTO x10(9)/L 9:11 AM VENDOR QUALITY SUPERVISOR Leukocytes 9.0 3.4 - 9.6 03/22/2021 MKTO x10(9)/L 9:11 AM VENDOR QUALITY SUPERVISOR Specimen Anatomical Collection Method Collection Time Receive d Time (Source) Location / / Volume Laterality Blood (Blood, 03/22/2021 8:38 AM 03/22/20 8:50 Venous) VENDOR QUALITY SUPERVISOR AM VENDOR QUALITY SUPERVISOR Darian Thomas M.D., J.D. LAB BLOOD ADD-ON Performing Organization Address City/[facility]/ZIP Code Phon e Number [facility]- [address] [place] [phone] [facility] [place] [address] System in [address] Phosphorus Inorganic (03/22/2021 8:33 AM VENDOR QUALITY SUPERVISOR) P athologist Signature Phosphorus 2.7 2.5 - 4.5 03/22/2021 MKTO (Inorganic), P mg/dL 2:17 PM VENDOR QUALITY SUPERVISOR Specimen Anatomical Collection Method Collection Time Receive d Time (Source) Location / / Volume Laterality Blood (Blood, 03/22/2021 8:33 AM 03/22/20 2:07 Venous) VENDOR QUALITY SUPERVISOR PM VENDOR QUALITY SUPERVISOR Darian Thomas M.D., J.D. LAB BLOOD ADD-ON Performing Organization Address City/[facility] Phon e Number [facility]- [address] [place] [phone] [facility] [place] [address] System in [address] (ABNORMAL) Magnesium (03/22/2021 8:33 AM VENDOR QUALITY SUPERVISOR) P athologist Signature Magnesium, P 1.6 (L) 1.7 - 2.3 03/22/2021 MKTO mg/dL 2:17 PM VENDOR QUALITY SUPERVISOR Specimen Anatomical Collection Method Collection Time Receive d Time (Source) Location / / Volume Laterality Blood (Blood, 03/22/2021 8:33 AM 03/22/20 2:07 Venous) VENDOR QUALITY SUPERVISOR PM VENDOR QUALITY SUPERVISOR Darian Thomas M.D., J.D. LAB BLOOD ADD-ON Performing Organization Address City/[facility]/ZIP Code Phon e Number [facility]- [address] [place] [phone] [facility] [place] [address] [address] EEG ROUTINE (03/21/2021 4:43 PM VENDOR QUALITY SUPERVISOR) Specimen (Source) Anatomical Location Collection Method / Collectio n Time Received Time / Laterality Volume Narrative MMODAL - 03/21/2021 5:13 PM VENDOR QUALITY SUPERVISOR Clinical Interpretation: The short-term video EEG shows [...] The EKG channel was unremarkable. Jean Paul M.D., M.P.H. NEUROLOGY ORDERABLES Performing Organization Address City/State/ZIP Code Phon e Number MMODAL MMODAL NA CT Abdomen Pelvis without IV Contrast (03/21/2021 12:42 PM VENDOR QUALITY SUPERVISOR) Anatomical Region Laterality Modality Abdomen, Pelvis, Abdominal RST LOS, Abdominal ARZ LOS, N/A Computed Tomography Abdominal FLA LOS Specimen (Source) Anatomical Collection Method Collection Time Re ceived Time Location / / Volume Laterality 03/21/2021 1:09 PM VENDOR QUALITY SUPERVISOR Impressions 03/21/2021 1:19 PM VENDOR QUALITY SUPERVISOR 1. Slight interval DECREASE in abdominal ascites, however attenuation values have slightly increased, and are indeter minate, raising the possibility that there is blood within this free peritone al fluid. Consider paracentesis 2. No CT evidence for retroperitoneal he morrhage. Narrative 03/21/2021 1:19 PM VENDOR QUALITY SUPERVISOR EXAM: CT ABDOMEN PELVIS WITHOUT IV CONTRAST [...] Head without IV Contrast (03/21/2021 12:42 PM VENDOR QUALITY SUPERVISOR) Anatomical Region Laterality Modality Head, Neuroradiology RST LOS, Neuroradiology ARZ LOS, N/A Computed Tomography Neuroradiology FLA LOS Specimen (Source) Anatomical Collection Method Collection Time Re ceived Time Location / / Volume Laterality 03/21/2021 1:08 PM VENDOR QUALITY SUPERVISOR Impressions 03/21/2021 1:09 PM VENDOR QUALITY SUPERVISOR No acute intracranial pathology Narrative 03/21/2021 1:09 PM VENDOR QUALITY SUPERVISOR EXAM: CT HEAD WITHOUT IV CONTRAST COMPARISON: [...] IMPRESSION: No acute intracranial pathology Jean Paul M.D., M.P.H. IMG CT PROCEDURES ECG 12 Lead (03/21/2021 10:06 AM VENDOR QUALITY SUPERVISOR) P athologist Signature Ventricular Rate 92 BPM MUSE ECG/Min [place] Interval 148 ms MUSE QRSD Interval 82 ms MUSE QT Interval 342 ms MUSE QTC Interval 422 ms MUSE P [place] 0 degrees MUSE R [place] 58 degrees MUSE T Wave [place] 12 degrees MUSE Specimen Anatomical Collection Method Collection Time Receive d Time (Source) Location / / Volume Laterality 03/21/2021 10:06 03/21/2021 AM VENDOR QUALITY SUPERVISOR 10:09 AM VENDOR QUALITY SUPERVISOR Impressions MUSE - 03/21/2021 10:10 AM VENDOR QUALITY SUPERVISOR Normal sinus rhythm Nonspecific T wave abnormality [...] (ABNORMAL) Comprehensive Metabolic Panel (03/21/2021 5:44 AM VENDOR QUALITY SUPERVISOR) Analysis Performed At Patho logist Time Signature Potassium, P 3.8 3.6 - 5.2 03/21/2021 MKTO mmol/L 6:33 AM VENDOR QUALITY SUPERVISOR Sodium, P 141 135 - 145 03/21/2021 MK[facility] mmol/L 6:33 AM VENDOR QUALITY SUPERVISOR Chloride, P 108 (H) 98 - 107 03/21/2021 MKTO mmol/L 6:33 AM VENDOR QUALITY SUPERVISOR Bicarbonate, P 19 (L) 22 - 29 03/21/2021 MKTO mmol/L 6:33 AM VENDOR QUALITY SUPERVISOR Anion Gap, P 14 7 - 15 03/21/2021 MKTO 6:33 AM VENDOR QUALITY SUPERVISOR BUN (Blood Urea 4 (L) 6 - 21 03/21/2021 MKTO Nitrogen), P mg/dL 6:33 AM VENDOR QUALITY SUPERVISOR Creatinine 0.38 (L) 0.59 - 03/21/2021 MKTO 1.04 mg/dL 6:33 AM VENDOR QUALITY SUPERVISOR eGFR-Black/Afri >90 >=60 03/21/2021 MKTO can [place]at[place] mL/min/BSA 6:33 AM VENDOR QUALITY SUPERVISOR Comment: ----ADDITIONAL INFORMATION---- Estimated GFR calculated using the 2009 CKD_EPI creatinine equation. eGFR Non-Black/ >90 >=60 mL/min/BSA 03/21/2021 6:33 AM VENDOR QUALITY SUPERVISOR MKTO Comment: ----ADDITIONAL INFORMATION---- Estimated GFR calculated using the 2009 CKD_EPI creatinine equation. Calcium, Total, P 10.3 (H) 8.6 - 10.0 mg/dL 03/21/2021 6:33 AM MKTO VENDOR QUALITY SUPERVISOR Glucose, P 104 70 - 140 mg/dL 03/21/2021 6:33 AM MKTO VENDOR QUALITY SUPERVISOR Protein, Total, P 6.2 (L) 6.3 - 7.9 g/dL 03/21/2021 6:33 A M MKTO VENDOR QUALITY SUPERVISOR Albumin, P 5.2 (H) 3.5 - 5.0 g/dL 03/21/2021 6:33 AM MKTO VENDOR QUALITY SUPERVISOR Aspartate Aminotransferase SEE COMMENT 8 - 43 U/L 03/21/2021 6:43 AM MKTO (AST), P VENDOR QUALITY SUPERVISOR Comment: Specimen was hemolyzed. Alkaline Phosphatase, P 52 35 - 104 U/L 03/21/2021 6: 33 AM VENDOR QUALITY SUPERVISOR MKTO Alanine Aminotransferase (ALT), 19 7 - 45 U/L 021 6:33 AM VENDOR QUALITY SUPERVISOR MKTO P Bilirubin, Total, P 5.8 (H) <=1.2 mg/dL 03/21/2021 6:33 AM VENDOR QUALITY SUPERVISOR MKTO Specimen Anatomical Collection Method Collection Time Receive d Time (Source) Location / / Volume Laterality Blood (Blood, 03/21/2021 5:44 AM 03/21/20 5:50 Venous) VENDOR QUALITY SUPERVISOR AM VENDOR QUALITY SUPERVISOR Darian Thomas M.D., J.D. LAB BLOOD ADD-ON Performing Organization Address [facility] Phon e Number [address] [phone] [place] [address] System in [address] Lactate, B (03/21/2021 5:43 AM VENDOR QUALITY SUPERVISOR) P athologist Signature Lactate, B 1.7 0.5 - 2.2 03/21/2021 MKTO mmol/L 5:56 AM VENDOR QUALITY SUPERVISOR Specimen Anatomical Collection Method Collection Time Receive d Time (Source) Location / / Volume Laterality Blood 03/21/2021 5:43 AM 5:50 VENDOR QUALITY SUPERVISOR AM VENDOR QUALITY SUPERVISOR Alka Cordero P.A.-C., M.S. LAB BLOOD NON ADD-ON Performing Organization Address [facility] Phon e Number [address] [phone] [place] [address] System [address] (ABNORMAL) CBC without Differential (03/21/2021 5:43 AM VENDOR QUALITY SUPERVISOR) Patholo gist Method Time Signature Hemoglobin 7.0 (L) 11.6 - 03/21/2021 MKTO 15.0 g/dL 6:09 AM VENDOR QUALITY SUPERVISOR Hematocrit 21.2 (L) 35.5 - 03/21/2021 MKTO 44.9 % 6:09 AM VENDOR QUALITY SUPERVISOR Erythrocytes 2.35 (L) 3.92 - 03/21/2021 MKTO 5.13 6:09 AM VENDOR QUALITY SUPERVISOR x10(12)/L MCV 90.2 78.2 - 03/21/2021 MK[facility] 97.9 fL 6:09 AM VENDOR QUALITY SUPERVISOR RBC Distrib Width 21.1 (H) 12.2 - 03/21/2021 MKTO 16.1 % 6:09 AM VENDOR QUALITY SUPERVISOR Platelet Count 91 (L) 157 - 371 03/21/2021 MKTO x10(9)/L 6:09 AM VENDOR QUALITY SUPERVISOR Leukocytes 7.8 3.4 - 9.6 03/21/2021 MKTO x10(9)/L 6:09 AM VENDOR QUALITY SUPERVISOR Specimen Anatomical Collection Method Collection Time Receive d Time (Source) Location / / Volume Laterality Blood (Blood, 03/21/2021 5:43 AM 03/21/20 5:50 Venous) VENDOR QUALITY SUPERVISOR AM VENDOR QUALITY SUPERVISOR Darian Thomas M.D., Dhara LAB BLOOD ADD-ON Performing Organization Address [facility] Phon e Number [facility]- [address] [place] [phone] [place] [address] (ABNORMAL) Prothrombin Time (PT) (03/21/2021 5:43 AM VENDOR QUALITY SUPERVISOR) [facility] Method Time Signature Prothrombin 29.0 (H) 9.4 - 12.5 03/21/2021 MKTO Time, P sec 6:02 AM VENDOR QUALITY SUPERVISOR INR 2.6 0.9 - 1.1 03/21/2021 MKTO 6:02 AM VENDOR QUALITY SUPERVISOR Comment: ----ADDITIONAL INFORMATION---- Standard intensity warfarin therapeutic range: 2.0 to 3.0 ?? High intensity warfarin therapeutic rang e: 2.5 to 3.5 Specimen Anatomical Collection Method Collection Time Receive d Time (Source) Location / / Volume Laterality Blood (Blood, 03/21/2021 5:43 AM 03/21/20 5:50 Venous) VENDOR QUALITY SUPERVISOR AM VENDOR QUALITY SUPERVISOR Keerthi Guzman M.D. LAB BLOOD ADD-ON Performing Organization Address City/[facility]/ZIP Code Phon e Number [facility]- [address] [place] [phone] [place] [address] System in [address] (ABNORMAL) Lactate, B (03/20/2021 10:32 PM VENDOR QUALITY SUPERVISOR) P athologist Signature Lactate, B 4.1 (H) 0.5 - 2.2 03/20/2021 MKTO mmol/L 10:44 PM VENDOR QUALITY SUPERVISOR Specimen Anatomical Collection Method Collection Time Receive d Time (Source) Location / / Volume Laterality Blood 03/20/2021 10:32 03/20/2021 PM VENDOR QUALITY SUPERVISOR 10:39 PM VENDOR QUALITY SUPERVISOR Alka Cordero P.A.-C. MSumaSSuma LAB BLOOD NON ADD-ON Performing Organization Address City/State/ZIP Code Phon e Number [facility]- [address] [place] [address] [place] [address] System in [address] (ABNORMAL) Comprehensive Metabolic Panel (03/20/2021 10:32 PM VENDOR QUALITY SUPERVISOR) Analysis Performed At Patho logist Time Signature Potassium, P 3.6 3.6 - 5.2 03/20/2021 MK[facility] mmol/L 11:16 PM VENDOR QUALITY SUPERVISOR Sodium, P 141 135 - 145 03/20/2021 [facility] mmol/L 11:16 PM VENDOR QUALITY SUPERVISOR Chloride, P 107 98 - 107 03/20/2021 [facility] mmol/L 11:16 PM VENDOR QUALITY SUPERVISOR Bicarbonate, P 17 (L) 22 - 29 03/20/2021 [facility] mmol/L 11:16 PM VENDOR QUALITY SUPERVISOR Anion Gap, P 17 (H) 7 - 15 03/20/2021 MK[facility] 11:16 PM VENDOR QUALITY SUPERVISOR BUN (Blood Urea 4 (L) 6 - 21 03/20/2021 MKTO Nitrogen), P mg/dL 11:16 PM VENDOR QUALITY SUPERVISOR Creatinine 0.43 (L) 0.59 - 03/20/2021 MK[facility] 1.04 mg/dL 11:16 PM VENDOR QUALITY SUPERVISOR eGFR-Black/Afri >90 >=60 03/20/2021 MKTO can [place] mL/min/BSA 11:16 PM VENDOR QUALITY SUPERVISOR Comment: ----ADDITIONAL INFORMATION---- Estimated GFR calculated using the 2009 CKD_EPI creatinine equation. eGFR Non-Black/ >90 >=60 mL/min/BSA 03/20/2021 11:16 PM VENDOR QUALITY SUPERVISOR MKTO Comment: ----ADDITIONAL INFORMATION---- Estimated GFR calculated using the 2009 CKD_EPI creatinine equation. Calcium, Total, P 10.6 (H) 8.6 - 10.0 mg/dL 03/20/2021 11:1 6 PM MKTO VENDOR QUALITY SUPERVISOR Glucose, P 117 70 - 140 mg/dL 03/20/2021 11:16 PM MKTO VENDOR QUALITY SUPERVISOR Protein, Total, P 6.8 6.3 - 7.9 g/dL 03/20/2021 11:16 PM MKTO VENDOR QUALITY SUPERVISOR Albumin, P 5.6 (H) 3.5 - 5.0 g/dL 03/20/2021 11:16 PM MKTO VENDOR QUALITY SUPERVISOR Aspartate Aminotransferase 56 (H) 8 - 43 U/L 03/20/2021 1 1:16 PM MKTO (AST), P VENDOR QUALITY SUPERVISOR Alkaline Phosphatase, P 59 35 - 104 U/L 03/20/2021 11 :16 PM MKTO VENDOR QUALITY SUPERVISOR Alanine Aminotransferase 21 7 - 45 U/L 03/20/2021 11: 16 PM MKTO (ALT), P VENDOR QUALITY SUPERVISOR Bilirubin, Total, P 6.0 (H) <=1.2 mg/dL 03/20/2021 11:16 P M MKTO VENDOR QUALITY SUPERVISOR Specimen Anatomical Collection Method Collection Time Receive d Time (Source) Location / / Volume Laterality Blood (Blood, 03/20/2021 10:32 03/20/2021 Venous) PM VENDOR QUALITY SUPERVISOR 10:39 PM VENDOR QUALITY SUPERVISOR Alka Cordero P.A.-C., M.S. LAB BLOOD ADD-ON Performing Organization Address City/State/ZIP Code Phon e Number [facility]- [address] [place] [phone] [place] [address] [address] (ABNORMAL) Ammonia (03/20/2021 10:32 PM VENDOR QUALITY SUPERVISOR) P athologist Signature Ammonia, P 63 (H) <=51 03/20/2021 MKTO mcmol/L 11:02 PM VENDOR QUALITY SUPERVISOR Specimen Anatomical Collection Method Collection Time Receive d Time (Source) Location / / Volume Laterality Blood (Blood, 03/20/2021 10:32 03/20/2021 Venous) PM VENDOR QUALITY SUPERVISOR 10:38 PM VENDOR QUALITY SUPERVISOR Alka Cordero P.A.-C., M.S. LAB BLOOD NON ADD-ON Performing Organization Address City/State/[facility] Code Phon e Number [facility]- [facility] [place] [address] [place] [address] CK (Creatine Kinase) (03/20/2021 10:32 PM VENDOR QUALITY SUPERVISOR) P athologist Signature Creatine 40 26 - 192 03/20/2021 MKTO Kinase, P U/L 11:16 PM VENDOR QUALITY SUPERVISOR Specimen Anatomical Collection Method Collection Time Receive d Time (Source) Location / / Volume Laterality Blood (Blood, 03/20/2021 10:32 03/20/2021 Venous) PM VENDOR QUALITY SUPERVISOR 10:39 PM VENDOR QUALITY SUPERVISOR Alka Cordero P.A.-C., M.S. LAB BLOOD ADD-ON Performing Organization Address City/[facility] Phon e Number [facility]- [address] [place] [phone] [place] [address] System in [address] (ABNORMAL) CBC with Differential, Blood (03/20/2021 10:32 PM VENDOR QUALITY SUPERVISOR) Patholo gist Method Time Signature Hemoglobin 7.5 (L) 11.6 - 03/20/2021 MK[facility] 15.0 g/dL 10:43 PM VENDOR QUALITY SUPERVISOR Hematocrit 22.5 (L) 35.5 - 03/20/2021 MKTO 44.9 % 10:43 PM VENDOR QUALITY SUPERVISOR Erythrocytes 2.44 (L) 3.92 - 03/20/2021 MK[facility] 5.13 10:43 PM VENDOR QUALITY SUPERVISOR x10(12)/L MCV 92.2 78.2 - 03/20/2021 MKTO 97.9 fL 10:43 PM VENDOR QUALITY SUPERVISOR RBC Distrib Width 20.9 (H) 12.2 - 03/20/2021 MKTO 16.1 % 10:43 PM VENDOR QUALITY SUPERVISOR Platelet Count 84 (L) 157 - 371 03/20/2021 MKTO x10(9)/L 10:43 PM VENDOR QUALITY SUPERVISOR Leukocytes 8.4 3.4 - 9.6 03/20/2021 MK[facility] x10(9)/L 10:43 PM VENDOR QUALITY SUPERVISOR Neutrophils 6.38 1.56 - 03/20/2021 MK[facility] 6.45 10:43 PM VENDOR QUALITY SUPERVISOR x10(9)/L Lymphocytes 1.10 0.95 - 03/20/2021 MK[facility] 3.07 10:43 PM VENDOR QUALITY SUPERVISOR x10(9)/L Monocytes 0.75 0.26 - 03/20/2021 MK[facility] 0.81 10:43 PM VENDOR QUALITY SUPERVISOR x10(9)/L Eosinophils 0.10 0.03 - 03/20/2021 MK[facility] 0.48 10:43 PM VENDOR QUALITY SUPERVISOR x10(9)/L Basophils <0.03 0.01 - 03/20/2021 MK[facility] 0.08 10:43 PM VENDOR QUALITY SUPERVISOR x10(9)/L Specimen Anatomical Collection Method Collection Time Receive d Time (Source) Location / / Volume Laterality Blood (Blood, 03/20/2021 10:32 03/20/2021 Venous) PM VENDOR QUALITY SUPERVISOR 10:39 PM VENDOR QUALITY SUPERVISOR Alka Cordero P.A.-C. MSumaSSuma LAB BLOOD ADD-ON Performing Organization Address City/[facility] Phon e Number [facility]- [address] [place] [phone] [place] [address] System in [address] Glucose, POCT (03/20/2021 9:03 PM VENDOR QUALITY SUPERVISOR) athologist Signature Glucose, POCT, 131 70 - 140 03/20/2021 MK[facility] B mg/dL 9:03 PM VENDOR QUALITY SUPERVISOR Specimen Anatomical Collection Method Collection Time Receive d Time (Source) Location / / Volume Laterality Blood 03/20/2021 9:03 PM 9:11 VENDOR QUALITY SUPERVISOR PM VENDOR QUALITY SUPERVISOR Generic Rals LAB POCT ORDERABLES-MANUAL Performing Organization Address [facility] Phon e Number [address] [phone] [place] [address] System in [address] Phosphorus Inorganic (03/20/2021 7:40 AM VENDOR QUALITY SUPERVISOR) athologist Signature Phosphorus 3.1 2.5 - 4.5 03/20/2021 [place] (Inorganic), P mg/dL 8:31 AM VENDOR QUALITY SUPERVISOR Specimen Anatomical Collection Method Collection Time Receive d Time (Source) Location / / Volume Laterality Blood 03/20/2021 7:40 AM 7:46 VENDOR QUALITY SUPERVISOR AM VENDOR QUALITY SUPERVISOR Keerthi Guzman M.D. LAB BLOOD ADD-ON Performing Organization Address City/[facility] Phon e Number [facility]- [address] [place] [phone] [place] [address] System in [address] (ABNORMAL) Blood Gas with Coox, Venous (03/20/2021 7:40 AM VENDOR QUALITY SUPERVISOR) [facility] Method Time Signature Venous pO2 56 Not applicable 03/20/2021 [place] mm Hg 7:59 AM VENDOR QUALITY SUPERVISOR Venous pCO2 30 (L) 41 - 51 mm Hg 03/20/2021 [facility] 7:59 AM VENDOR QUALITY SUPERVISOR Venous pH 7.48 (H) 7.32 - 7.43 pH 03/20/2021 [facility] 7:59 AM VENDOR QUALITY SUPERVISOR Venous Base -1 Not applicable 03/20/2021 [facility] Excess mmol/L 7:59 AM VENDOR QUALITY SUPERVISOR HCO3 22 Not applicable 03/20/2021 [place] mmol/L 7:59 AM VENDOR QUALITY SUPERVISOR Hemoglobin, B 7.8 (L) 11.6 - 15.0 03/20/2021 [facility] g/dL 7:59 AM VENDOR QUALITY SUPERVISOR O2Hb 88.2 Not applicable 03/20/2021 [facility] % 7:59 AM VENDOR QUALITY SUPERVISOR COHb 1.8 <3.0 % 03/20/2021 MKTO 7:59 AM VENDOR QUALITY SUPERVISOR MetHb 0.6 <1.5 % 03/20/2021 [facility] 7:59 AM VENDOR QUALITY SUPERVISOR CtO2 9.7 Not Applicable 03/20/2021 [facility] vol % 7:59 AM VENDOR QUALITY SUPERVISOR Specimen Anatomical Collection Method Collection Time Receive d Time (Source) Location / / Volume Laterality Blood (Blood, 03/20/2021 7:40 AM 03/20/20 7:46 Venous) VENDOR QUALITY SUPERVISOR AM VENDOR QUALITY SUPERVISOR Darian Thomas M.D., J.D. LAB BLOOD NON ADD-ON Performing Organization Address City/[facility] Phon e Number [facility]- [address] [place] [phone] [place] [address] System in [address] Magnesium (03/20/2021 7:40 AM VENDOR QUALITY SUPERVISOR) P athologist Signature Magnesium, P 2.3 1.7 - 2.3 03/20/2021 [place] mg/dL 8:31 AM VENDOR QUALITY SUPERVISOR Specimen Anatomical Collection Method Collection Time Receive d Time (Source) Location / / Volume Laterality Blood 03/20/2021 7:40 AM 1 7:46 VENDOR QUALITY SUPERVISOR AM VENDOR QUALITY SUPERVISOR Keerthi Guzman M.D. LAB BLOOD ADD-ON Performing Organization Address City/State/ZIP Code Phon e Number [facility]- [address] [place] [phone] [place] [address] System in [address] Calcium, Ionized (03/20/2021 7:40 AM VENDOR QUALITY SUPERVISOR) athologist Signature Calcium, 5.07 4.65 - 5.30 03/20/2021 [place] Ionized, B mg/dL 7:59 AM VENDOR QUALITY SUPERVISOR Specimen Anatomical Collection Method Collection Time Receive d Time (Source) Location / / Volume Laterality Blood 03/20/2021 7:40 AM 1 7:46 VENDOR QUALITY SUPERVISOR AM VENDOR QUALITY SUPERVISOR Keerthi Guzman M.D. LAB BLOOD NON ADD-ON Performing Organization Address City/State/ZIP Code Phon e Number [facility]- [address] [place] [phone] [facility] [place] [address] [address] (ABNORMAL) pH (03/20/2021 7:40 AM VENDOR QUALITY SUPERVISOR) athologist Signature pH 7.48 (H) 7.35 - 7.45 03/20/2021 [place] pH 7:59 AM VENDOR QUALITY SUPERVISOR Specimen Anatomical Collection Method Collection Time Receive d Time (Source) Location / / Volume Laterality Blood 03/20/2021 7:40 AM 1 7:46 VENDOR QUALITY SUPERVISOR AM VENDOR QUALITY SUPERVISOR Keerthi Guzman M.D. LAB HISTORICAL ORDERS Performing Organization Address City/State/ZIP Code Phon e Number [facility]- [address] [place] [phone] [place] [address] System in [address] Lactate, B (03/20/2021 7:40 AM VENDOR QUALITY SUPERVISOR) P athologist Signature Lactate, B 1.0 0.5 - 2.2 03/20/2021 [place] mmol/L 7:59 AM VENDOR QUALITY SUPERVISOR Specimen Anatomical Collection Method Collection Time Receive d Time (Source) Location / / Volume Laterality Blood 03/20/2021 7:40 AM 7:46 VENDOR QUALITY SUPERVISOR AM VENDOR QUALITY SUPERVISOR Keerthi Guzman M.D. LAB BLOOD NON ADD-ON Performing Organization Address City/[facility] Phon e Number [facility]- [address] [place] [phone] [place] [address] System in [address] (ABNORMAL) CBC without Differential (03/20/2021 7:40 AM VENDOR QUALITY SUPERVISOR) Patholo gist Method Time Signature Hemoglobin 7.6 (L) 11.6 - 03/20/2021 MKTO 15.0 g/dL 8:13 AM VENDOR QUALITY SUPERVISOR Hematocrit 23.4 (L) 35.5 - 03/20/2021 MKTO 44.9 % 8:13 AM VENDOR QUALITY SUPERVISOR Erythrocytes 2.54 (L) 3.92 - 03/20/2021 MKTO 5.13 8:13 AM VENDOR QUALITY SUPERVISOR x10(12)/L MCV 92.1 78.2 - 03/20/2021 MKTO 97.9 fL 8:13 AM VENDOR QUALITY SUPERVISOR RBC Distrib Width 20.5 (H) 12.2 - 03/20/2021 MKTO 16.1 % 8:13 AM VENDOR QUALITY SUPERVISOR Platelet Count 94 (L) 157 - 371 03/20/2021 MKTO x10(9)/L 8:13 AM VENDOR QUALITY SUPERVISOR Leukocytes 5.9 3.4 - 9.6 03/20/2021 MKTO x10(9)/L 8:13 AM VENDOR QUALITY SUPERVISOR Specimen Anatomical Collection Method Collection Time Receive d Time (Source) Location / / Volume Laterality Blood (Blood, 03/20/2021 7:40 AM 03/20/20 7:46 Venous) VENDOR QUALITY SUPERVISOR AM VENDOR QUALITY SUPERVISOR Keerthi Guzman M.D. LAB BLOOD ADD-ON Performing Organization Address City/State/ZIP Code Phon e Number [facility]- [facility] [place] [address] [place] [address] System in [place] [address] [facility] (ABNORMAL) Comprehensive Metabolic Panel (03/20/2021 7:40 AM VENDOR QUALITY SUPERVISOR) Analysis Performed At Patho logist Time Signature Potassium, P 3.3 (L) 3.6 - 5.2 03/20/2021 [place] mmol/L 8:31 AM VENDOR QUALITY SUPERVISOR Sodium, P 142 135 - 145 03/20/2021 [place] mmol/L 8:31 AM VENDOR QUALITY SUPERVISOR Chloride, P 108 (H) 98 - 107 03/20/2021 [place] mmol/L 8:31 AM VENDOR QUALITY SUPERVISOR Bicarbonate, P 20 (L) 22 - 29 03/20/2021 [place] mmol/L 8:31 AM VENDOR QUALITY SUPERVISOR Anion Gap, P 14 7 - 15 03/20/2021 [place] 8:31 AM VENDOR QUALITY SUPERVISOR BUN (Blood Urea 4 (L) 6 - 21 03/20/2021 [place] Nitrogen), P mg/dL 8:31 AM VENDOR QUALITY SUPERVISOR Creatinine 0.35 (L) 0.59 - 03/20/2021 [place] 1.04 mg/dL 8:31 AM VENDOR QUALITY SUPERVISOR eGFR-Black/Afri >90 >=60 03/20/2021 [place] can [place] mL/min/BSA 8:32 AM VENDOR QUALITY SUPERVISOR Comment: ----ADDITIONAL INFORMATION---- Estimated GFR calculated using the 2009 CKD_EPI creatinine equation. eGFR Non-Black/ >90 >=60 mL/min/BSA 03/20/2021 8:32 AM VENDOR QUALITY SUPERVISOR [place] Comment: ----ADDITIONAL INFORMATION---- Estimated GFR calculated using the 2009 CKD_EPI creatinine equation. Calcium, Total, P 10.2 (H) 8.6 - 10.0 mg/dL 03/20/2021 8:31 AM VENDOR QUALITY SUPERVISOR [place] Glucose, P 107 70 - 140 mg/dL 03/20/2021 8:31 AM VENDOR QUALITY SUPERVISOR M [place] Protein, Total, P 6.3 6.3 - 7.9 g/dL 03/20/2021 8:31 A M VENDOR QUALITY SUPERVISOR [place] Albumin, P 5.3 (H) 3.5 - 5.0 g/dL 03/20/2021 8:31 AM VENDOR QUALITY SUPERVISOR M [place] Aspartate Aminotransferase 38 8 - 43 U/L 03/20/2021 8 :31 AM VENDOR QUALITY SUPERVISOR [place] (AST), P Alkaline Phosphatase, P 50 35 - 104 U/L 03/20/2021 8: 31 AM VENDOR QUALITY SUPERVISOR [place] Alanine Aminotransferase 11 7 - 45 U/L 03/20/2021 8:3 1 AM VENDOR QUALITY SUPERVISOR [place] (ALT), P Bilirubin, Total, P 6.0 (H) <=1.2 mg/dL 03/20/2021 8:31 AM VENDOR QUALITY SUPERVISOR [place] Specimen Anatomical Collection Method Collection Time Receive d Time (Source) Location / / Volume Laterality Blood (Blood, 03/20/2021 7:40 AM 03/20/20 7:46 Venous) VENDOR QUALITY SUPERVISOR AM VENDOR QUALITY SUPERVISOR Keerthi Guzman M.D. LAB BLOOD ADD-ON Performing Organization Address [facility] Phon e Number [facility]- [address] [place] [phone] [place] [address] System in [address] (ABNORMAL) Prothrombin Time (PT) (03/20/2021 7:40 AM VENDOR QUALITY SUPERVISOR) [facility] Method Time Signature Prothrombin 27.0 (H) 9.4 - 12.5 03/20/2021 [place] Time, P sec 8:13 AM VENDOR QUALITY SUPERVISOR INR 2.4 0.9 - 1.1 03/20/2021 [place] 8:13 AM VENDOR QUALITY SUPERVISOR Comment: ----ADDITIONAL INFORMATION---- Standard intensity warfarin therapeutic range: 2.0 to 3.0 ?? High intensity warfarin therapeutic rang e: 2.5 to 3.5 Specimen Anatomical Collection Method Collection Time Receive d Time (Source) Location / / Volume Laterality Blood (Blood, 03/20/2021 7:40 AM 03/20/20 7:46 Venous) VENDOR QUALITY SUPERVISOR AM VENDOR QUALITY SUPERVISOR Keerthi Guzman M.D. LAB BLOOD ADD-ON Performing Organization Address [facility]/ZIP Code Phon e Number [facility]- [address] [place] [phone] [place] [address] System in [place] [address] [place] [address] Transfuse Fresh Frozen Plasma :INR >2: Invasive proc scheduled; 180 mL/hr (03/19/2021 6:37 PM VENDOR QUALITY SUPERVISOR) Keerthi Guzman M.D. BLOOD TRANSFUSION ORDERABLES Transfuse Fresh Frozen Plasma :INR >2: Invasive proc scheduled; 180 mL/hr, 1 Units (03/19/2021 6:37 PM VENDOR QUALITY SUPERVISOR) Keerthi Guzman M.D. BLOOD TRANSFUSION ORDERABLES Transfuse Red Blood Cells : (03/19/2021 3:21 PM VENDOR QUALITY SUPERVISOR) Darian Thomas M.D., J.D. BLOOD TRANSFUSION ORDERAB LES Transfuse Red Blood Cells : , 1 Units (03/19/2021 3:21 PM VENDOR QUALITY SUPERVISOR) Darian Thomas M.D., J.D. BLOOD TRANSFUSION ORDERAB LES (ABNORMAL) 25-Hydroxyvitamin D2 and D3 (03/19/2021 3:04 PM VENDOR QUALITY SUPERVISOR) athologist Signature 25-Hydroxy D2 <4.0 ng/mL 03/24/2021 SDSC 4:43 PM VENDOR QUALITY SUPERVISOR 25-Hydroxy D3 3.2 ng/mL 03/24/2021 SDSC 4:43 PM VENDOR QUALITY SUPERVISOR 25-Hydroxy D <6.0 (L) ng/mL 03/24/2021 SDSC Total 4:43 PM VENDOR QUALITY SUPERVISOR Comment: Interpretation: <10 ng/mL (severe defici ency) ----REFERENCE VALUE---- 25-HYDROXY D TOTAL (D2+D3) Optimum level s in the healthy population are 20-50, patients with bone disease may benefit from higher levels within this r vinh. ----ADDITIONAL INFORMATION---- This test was developed and its performa nce characteristics determined by [facility] in a manner consistent with CLIA requirements. This test has not been cleared or approved by the [place] and Drug Administration. Specimen Anatomical Collection Method Collection Time Receive d Time (Source) Location / / Volume Laterality Blood (Blood, 03/19/2021 3:04 PM 03/20/20 7:18 Venous) VENDOR QUALITY SUPERVISOR AM VENDOR QUALITY SUPERVISOR Ivaylo Krastev M.D. LAB BLOOD ADD-ON Performing Organization Address City/[facility]/ZIP Code Phon e Number [facility] [address] [place] [address] [facility] [place] [address] Laboratory Medicine and Pathology [address] [place] Parathyroid Hormone (PTH) (03/19/2021 3:04 PM VENDOR QUALITY SUPERVISOR) athologist Signature Parathyroid 44 15 - 65 03/19/2021 [place] Hormone (PTH), S pg/mL 4:17 PM VENDOR QUALITY SUPERVISOR Comment: Biotin has been identified by the [...] 03/19/2021 3:04 PM 03/19/20 21 3:09 Venous) VENDOR QUALITY SUPERVISOR PM VENDOR QUALITY SUPERVISOR Keerthi Guzman M.D. LAB BLOOD ADD-ON Performing Organization Address City/[facility] Phon e Number [facility]- [address] [place] [phone] [place] [address] System in [address] (ABNORMAL) pH (03/19/2021 3:04 PM VENDOR QUALITY SUPERVISOR) athologist Signature pH 7.51 (H) 7.35 - 7.45 03/19/2021 [place] pH 3:13 PM VENDOR QUALITY SUPERVISOR Specimen Anatomical Collection Method Collection Time Receive d Time (Source) Location / / Volume Laterality Blood 03/19/2021 3:04 PM 3:09 VENDOR QUALITY SUPERVISOR PM VENDOR QUALITY SUPERVISOR Darian Thomas M.D., J.D. LAB HISTORICAL ORDERS Performing Organization Address City/[facility]/ZIP Code Phon e Number [facility]- [address] [place] [phone] [place] [address] System in [address] Calcium, Ionized (03/19/2021 3:04 PM VENDOR QUALITY SUPERVISOR) P athologist Signature Calcium, 4.88 4.65 - 5.30 03/19/2021 [place] Ionized, B mg/dL 3:13 PM VENDOR QUALITY SUPERVISOR Specimen Anatomical Collection Method Collection Time Receive d Time (Source) Location / / Volume Laterality Blood 03/19/2021 3:04 PM 3:09 VENDOR QUALITY SUPERVISOR PM VENDOR QUALITY SUPERVISOR Darian Thomas M.D., J.D. LAB BLOOD NON ADD-ON Performing Organization Address City/[facility] Phon e Number [facility]- [address] [place] [phone] [place] [facility] [place] [id number] System in [address] (ABNORMAL) Potassium (03/19/2021 3:04 PM VENDOR QUALITY SUPERVISOR) athologist Signature Potassium, P 3.5 (L) 3.6 - 5.2 03/19/2021 [place] mmol/L 3:36 PM VENDOR QUALITY SUPERVISOR Specimen Anatomical Collection Method Collection Time Receive d Time (Source) Location / / Volume Laterality Blood (Blood, 03/19/2021 3:04 PM 03/19/20 21 3:09 Venous) VENDOR QUALITY SUPERVISOR PM VENDOR QUALITY SUPERVISOR Keerthi Guzman M.D. LAB BLOOD ADD-ON Performing Organization Address City/[facility] Phon e Number [address] [address] [place] [address] [address] (TTE) 2D ECHO DOPPLER COLOR AND CONTRAST (03/19/2021 12:39 PM VENDOR QUALITY SUPERVISOR) [facility] gist Method Time Signature Ejection Fraction 68 [...] / / Volume Laterality 03/19/2021 10:58 AM VENDOR QUALITY SUPERVISOR Impressions 03/19/2021 12:59 PM VENDOR QUALITY SUPERVISOR Echo performed at the patient's bedside. ??Hemoglobin [...] effusion. For the complete report, see the [employer] Documents. Narrative 03/19/2021 12:59 PM VENDOR QUALITY SUPERVISOR For the complete report, see the [employer] Documents. Final Impressions 1. Positive for atrial [...] 2020 For the complete report, see the [employer] Documents. Final Impressions 1. Positive for atrial [...] ECHO PROCEDURES (ABNORMAL) Ammonia (03/19/2021 7:39 AM VENDOR QUALITY SUPERVISOR) P athologist Signature Ammonia, P 65 (H) <=51 03/19/2021 ALIE mcmol/L 8:26 AM VENDOR QUALITY SUPERVISOR Specimen Anatomical Collection Method Collection Time Receive d Time (Source) Location / / Volume Laterality Blood (Blood, 03/19/2021 7:39 AM 03/19/20 8:06 Venous) VENDOR QUALITY SUPERVISOR AM VENDOR QUALITY SUPERVISOR Darian Thomas M.D., J.D. LAB BLOOD NON ADD-ON Performing Organization Address City/State/ZIP Code Phon e Number [facility]- [address] [place] [address] [place] [address] System in [address] (ABNORMAL) Phosphorus Inorganic (03/19/2021 7:39 AM VENDOR QUALITY SUPERVISOR) P athologist Signature Phosphorus 1.8 (L) 2.5 - 4.5 03/19/2021 [place] (Inorganic), P mg/dL 8:32 AM VENDOR QUALITY SUPERVISOR Specimen Anatomical Collection Method Collection Time Receive d Time (Source) Location / / Volume Laterality Blood (Blood, 03/19/2021 7:39 AM 03/19/20 7:57 Venous) VENDOR QUALITY SUPERVISOR AM VENDOR QUALITY SUPERVISOR Darian Thomas M.D., J.D. LAB BLOOD ADD-ON Performing Organization Address City/[facility] Phon e Number [facility]- [address] [place] [phone] [place] [address] (ABNORMAL) Magnesium (03/19/2021 7:39 AM VENDOR QUALITY SUPERVISOR) P athologist Signature Magnesium, P 1.5 (L) 1.7 - 2.3 03/19/2021 [place] mg/dL 8:32 AM VENDOR QUALITY SUPERVISOR Specimen Anatomical Collection Method Collection Time Receive d Time (Source) Location / / Volume Laterality Blood (Blood, 03/19/2021 7:39 AM 03/19/20 7:57 Venous) VENDOR QUALITY SUPERVISOR AM VENDOR QUALITY SUPERVISOR Darian Thomas M.D., J.D. LAB BLOOD ADD-ON Performing Organization Address City/State/[facility] Phon e Number [facility]- [address] [place] [phone] [place] [address] System in [address] (ABNORMAL) Comprehensive Metabolic Panel (03/19/2021 7:39 AM VENDOR QUALITY SUPERVISOR) Analysis Performed At Patho logist Time Signature Potassium, P 3.1 (L) 3.6 - 5.2 03/19/2021 [place] mmol/L 8:32 AM VENDOR QUALITY SUPERVISOR Sodium, P 140 135 - 145 03/19/2021 [place] mmol/L 8:32 AM VENDOR QUALITY SUPERVISOR Chloride, P 102 98 - 107 03/19/2021 [place] mmol/L 8:32 AM VENDOR QUALITY SUPERVISOR Bicarbonate, P 19 (L) 22 - 29 03/19/2021 [place] mmol/L 8:32 AM VENDOR QUALITY SUPERVISOR Anion Gap, P 19 (H) 7 - 15 03/19/2021 [place] 8:32 AM VENDOR QUALITY SUPERVISOR BUN (Blood Urea 6 6 - 21 03/19/2021 [place] Nitrogen), P mg/dL 8:32 AM VENDOR QUALITY SUPERVISOR Creatinine 0.33 (L) 0.59 - 03/19/2021 [place] 1.04 mg/dL 8:32 AM VENDOR QUALITY SUPERVISOR eGFR-Black/Afri >90 >=60 03/19/2021 [place] can [place] mL/min/BSA 8:32 AM VENDOR QUALITY SUPERVISOR Comment: ----ADDITIONAL INFORMATION---- Estimated GFR calculated using the 2009 CKD_EPI creatinine equation. eGFR Non-Black/ >90 >=60 mL/min/BSA 03/19/2021 8:32 AM VENDOR QUALITY SUPERVISOR [place] Comment: ----ADDITIONAL INFORMATION---- Estimated GFR calculated using the 2009 CKD_EPI creatinine equation. Calcium, Total, P 10.6 (H) 8.6 - 10.0 mg/dL 03/19/2021 8:32 AM VENDOR QUALITY SUPERVISOR [place] Glucose, P 116 70 - 140 mg/dL 03/19/2021 8:32 AM VENDOR QUALITY SUPERVISOR M [place]TO Protein, Total, P 6.9 6.3 - 7.9 g/dL 03/19/2021 8:32 A M VENDOR QUALITY SUPERVISOR [place] Albumin, P 6.7 (H) 3.5 - 5.0 g/dL 03/19/2021 9:07 AM VENDOR QUALITY SUPERVISOR M [place] Aspartate Aminotransferase 33 8 - 43 U/L 03/19/2021 8 :32 AM VENDOR QUALITY SUPERVISOR [place] (AST), P Alkaline Phosphatase, P 43 35 - 104 U/L 03/19/2021 8: 32 AM VENDOR QUALITY SUPERVISOR [place] Alanine Aminotransferase 10 7 - 45 U/L 03/19/2021 8:3 2 AM VENDOR QUALITY SUPERVISOR [place] (ALT), P Bilirubin, Total, P 6.6 (H) <=1.2 mg/dL 03/19/2021 8:32 AM VENDOR QUALITY SUPERVISOR [place] Specimen Anatomical Collection Method Collection Time Receive d Time (Source) Location / / Volume Laterality Blood (Blood, 03/19/2021 7:39 AM 03/19/20 7:57 Venous) VENDOR QUALITY SUPERVISOR AM VENDOR QUALITY SUPERVISOR Darian Thomas M.D., J.D. LAB BLOOD ADD-ON Performing Organization Address City/[facility]/ZIP Code Phon e Number [facility]- [address] [place] [phone] [place] [address] System in [address] (ABNORMAL) Prothrombin Time (PT) (03/19/2021 7:39 AM VENDOR QUALITY SUPERVISOR) [facility] Method Time Signature Prothrombin 28.4 (H) 9.4 - 12.5 03/19/2021 [place] Time, P sec 8:10 AM VENDOR QUALITY SUPERVISOR INR 2.5 0.9 - 1.1 03/19/2021 [place] 8:10 AM VENDOR QUALITY SUPERVISOR Comment: ----ADDITIONAL INFORMATION---- Standard intensity warfarin therapeutic range: 2.0 to 3.0 ?? High intensity warfarin therapeutic rang e: 2.5 to 3.5 Specimen Anatomical Collection Method Collection Time Receive d Time (Source) Location / / Volume Laterality Blood (Blood, 03/19/2021 7:39 AM 03/19/20 7:57 Venous) VENDOR QUALITY SUPERVISOR AM VENDOR QUALITY SUPERVISOR Darian Thomas M.D., J.D. LAB BLOOD ADD-ON Performing Organization Address City/[facility]/ZIP Code Phon e Number [facility]- [address] [place] [phone] [place] [address] System in [address] (ABNORMAL) CBC with Differential, Blood (03/19/2021 7:39 AM VENDOR QUALITY SUPERVISOR) [facility] Method Time Signature Hemoglobin 6.8 (L) 11.6 - 03/19/2021 [place] 15.0 g/dL 8:05 AM VENDOR QUALITY SUPERVISOR Hematocrit 20.4 (L) 35.5 - 03/19/2021 [place] 44.9 % 8:05 AM VENDOR QUALITY SUPERVISOR Erythrocytes 2.25 (L) 3.92 - 03/19/2021 [place] 5.13 8:05 AM VENDOR QUALITY SUPERVISOR x10(12)/L MCV 90.7 78.2 - 03/19/2021 [place] 97.9 fL 8:05 AM VENDOR QUALITY SUPERVISOR RBC Distrib Width 20.7 (H) 12.2 - 03/19/2021 [place] 16.1 % 8:05 AM VENDOR QUALITY SUPERVISOR Platelet Count 92 (L) 157 - 371 03/19/2021 [place] x10(9)/L 8:05 AM VENDOR QUALITY SUPERVISOR Leukocytes 5.6 3.4 - 9.6 03/19/2021 [place] x10(9)/L 8:05 AM VENDOR QUALITY SUPERVISOR Neutrophils 3.54 1.56 - 03/19/2021 [place] 6.45 8:05 AM VENDOR QUALITY SUPERVISOR x10(9)/L Lymphocytes 1.31 0.95 - 03/19/2021 [place] 3.07 8:05 AM VENDOR QUALITY SUPERVISOR x10(9)/L Monocytes 0.64 0.26 - 03/19/2021 [place] 0.81 8:05 AM VENDOR QUALITY SUPERVISOR x10(9)/L Eosinophils 0.07 0.03 - 03/19/2021 [place] 0.48 8:05 AM VENDOR QUALITY SUPERVISOR x10(9)/L Basophils <0.03 0.01 - 03/19/2021 [place] 0.08 8:05 AM VENDOR QUALITY SUPERVISOR x10(9)/L Specimen Anatomical Collection Method Collection Time Receive d Time (Source) Location / / Volume Laterality Blood (Blood, 03/19/2021 7:39 AM 03/19/20 7:57 Venous) VENDOR QUALITY SUPERVISOR AM VENDOR QUALITY SUPERVISOR Darian Thomas M.D., J.D. LAB BLOOD ADD-ON Performing Organization Address City/[facility] Phon e Number [address] [address] [place] [address] [address] (ABNORMAL) Bilirubin, Direct (03/19/2021 7:38 AM VENDOR QUALITY SUPERVISOR) P athologist Signature Bilirubin, 1.6 (H) 0.0 - 0.3 03/19/2021 [place] Direct, P mg/dL 1:13 PM VENDOR QUALITY SUPERVISOR Specimen Anatomical Collection Method Collection Time Receive d Time (Source) Location / / Volume Laterality Blood (Blood, 03/19/2021 7:38 AM 03/19/20 Venous) VENDOR QUALITY SUPERVISOR 12:25 PM VENDOR QUALITY SUPERVISOR Keerthi Guzman M.D. LAB BLOOD ADD-ON Performing Organization Address City/[facility]/ZIP Code Phon e Number [address] [address] [place] [address] System in [place] [address] [place] [address] ECG 12 Lead (03/19/2021 6:44 AM VENDOR QUALITY SUPERVISOR) athologist Signature Ventricular Rate 108 BPM MUSE ECG/Min [place] Interval 156 ms MUSE QRSD Interval 82 ms MUSE QT Interval 298 ms MUSE QTC Interval 399 ms MUSE P [place] 43 degrees MUSE R [place] 41 degrees MUSE T Wave [place] -17 degrees MUSE Specimen Anatomical Collection Method Collection Time Receive d Time (Source) Location / / Volume Laterality 03/19/2021 6:44 AM 6:49 VENDOR QUALITY SUPERVISOR AM VENDOR QUALITY SUPERVISOR Impressions MUSE - 03/19/2021 6:49 AM VENDOR QUALITY SUPERVISOR Sinus tachycardia Nonspecific T wave abnormality When [...] MUSE NA (ABNORMAL) Hemoglobin (03/18/2021 7:00 PM VENDOR QUALITY SUPERVISOR) athologist Signature Hemoglobin 7.6 (L) 11.6 - 15.0 03/18/2021 [place] g/dL 7:07 PM VENDOR QUALITY SUPERVISOR Specimen Anatomical Collection Method Collection Time Receive d Time (Source) Location / / Volume Laterality Blood (Blood, 03/18/2021 7:00 PM 03/18/20 7:03 Venous) VENDOR QUALITY SUPERVISOR PM VENDOR QUALITY SUPERVISOR Darian Thomas M.D., Dhara LAB BLOOD ADD-ON Performing Organization Address City/State/ZIP Code Phon e Number [facility]- [facility] [place] [address] [place] [address] System in [place] [address] [place] [address] (ABNORMAL) Ammonia (03/18/2021 6:59 PM VENDOR QUALITY SUPERVISOR) P athologist Signature Ammonia, P 55 (H) <=51 03/18/2021 [place] mcmol/L 7:23 PM VENDOR QUALITY SUPERVISOR Specimen Anatomical Collection Method Collection Time Receive d Time (Source) Location / / Volume Laterality Blood (Blood, 03/18/2021 6:59 PM 03/18/20 7:03 Venous) VENDOR QUALITY SUPERVISOR PM VENDOR QUALITY SUPERVISOR Darian Thomas M.D., J.D. LAB BLOOD NON ADD-ON Performing Organization Address City/[facility] Phon e Number [facility]- [address] [place] [phone] [place] [address] (ABNORMAL) Prothrombin Time (PT) (03/18/2021 8:35 AM VENDOR QUALITY SUPERVISOR) [facility] gist Method Time Signature Prothrombin 28.8 (H) 9.4 - 12.5 03/18/2021 [place] Time, P sec 9:20 AM VENDOR QUALITY SUPERVISOR INR 2.6 0.9 - 1.1 03/18/2021 [place] 9:20 AM VENDOR QUALITY SUPERVISOR Comment: ----ADDITIONAL INFORMATION---- Standard intensity warfarin therapeutic range: 2.0 to 3.0 ?? High intensity warfarin therapeutic rang e: 2.5 to 3.5 Specimen Anatomical Collection Method Collection Time Receive d Time (Source) Location / / Volume Laterality Blood (Blood, 03/18/2021 8:35 AM 03/18/20 8:41 Venous) VENDOR QUALITY SUPERVISOR AM VENDOR QUALITY SUPERVISOR Darian Thomas M.D., J.D. LAB BLOOD ADD-ON Performing Organization Address City/[facility] Phon e Number [facility]- [address] [place] [phone] [place] [address] (ABNORMAL) Comprehensive Metabolic Panel (03/18/2021 8:35 AM VENDOR QUALITY SUPERVISOR) Analysis Performed At Patho logist Time Signature Potassium, P 3.1 (L) 3.6 - 5.2 03/18/2021 [place] mmol/L 9:07 AM VENDOR QUALITY SUPERVISOR Sodium, P 141 135 - 145 03/18/2021 [place] mmol/L 9:07 AM VENDOR QUALITY SUPERVISOR Chloride, P 106 98 - 107 03/18/2021 [place] mmol/L 9:07 AM VENDOR QUALITY SUPERVISOR Bicarbonate, P 20 (L) 22 - 29 03/18/2021 [place] mmol/L 9:07 AM VENDOR QUALITY SUPERVISOR Anion Gap, P 15 7 - 15 03/18/2021 [place] 9:07 AM VENDOR QUALITY SUPERVISOR BUN (Blood Urea 7 6 - 21 03/18/2021 [place] Nitrogen), P mg/dL 9:07 AM VENDOR QUALITY SUPERVISOR Creatinine 0.32 (L) 0.59 - 03/18/2021 [place] 1.04 mg/dL 9:07 AM VENDOR QUALITY SUPERVISOR eGFR-Black/Afri >90 >=60 03/18/2021 [place] can [place] mL/min/BSA 9:07 AM VENDOR QUALITY SUPERVISOR Comment: ----ADDITIONAL INFORMATION---- Estimated GFR calculated using the 2009 CKD_EPI creatinine equation. eGFR Non-Black/ >90 >=60 mL/min/BSA 03/18/2021 9:07 AM VENDOR QUALITY SUPERVISOR [place] Comment: ----ADDITIONAL INFORMATION---- Estimated GFR calculated using the 2009 CKD_EPI creatinine equation. Calcium, Total, P 10.2 (H) 8.6 - 10.0 mg/dL 03/18/2021 9:07 AM VENDOR QUALITY SUPERVISOR [place] Glucose, P 109 70 - 140 mg/dL 03/18/2021 9:07 AM VENDOR QUALITY SUPERVISOR M KTO Protein, Total, P 6.3 6.3 - 7.9 g/dL 03/18/2021 9:07 A M VENDOR QUALITY SUPERVISOR [place] Albumin, P 5.4 (H) 3.5 - 5.0 g/dL 03/18/2021 9:07 AM VENDOR QUALITY SUPERVISOR M KTO Aspartate Aminotransferase 32 8 - 43 U/L 03/18/2021 9 :07 AM VENDOR QUALITY SUPERVISOR [place] (AST), P Alkaline Phosphatase, P 42 35 - 104 U/L 03/18/2021 9: 07 AM VENDOR QUALITY SUPERVISOR [place] Alanine Aminotransferase 8 7 - 45 U/L 03/18/2021 9:0 7 AM VENDOR QUALITY SUPERVISOR [place] (ALT), P Bilirubin, Total, P 7.7 (H) <=1.2 mg/dL 03/18/2021 9:07 AM VENDOR QUALITY SUPERVISOR [place] Specimen Anatomical Collection Method Collection Time Receive d Time (Source) Location / / Volume Laterality Blood (Blood, 03/18/2021 8:35 AM 03/18/20 8:41 Venous) VENDOR QUALITY SUPERVISOR AM VENDOR QUALITY SUPERVISOR Darian Thomas M.D., J.D. LAB BLOOD ADD-ON Performing Organization Address City/State/ZIP Code Phon e Number [facility]- [address] [place] [phone] [place] [address] System in [address] (ABNORMAL) CBC with Differential, Blood (03/18/2021 8:35 AM VENDOR QUALITY SUPERVISOR) [facility] Method Time Signature Hemoglobin 7.1 (L) 11.6 - 03/18/2021 [place] 15.0 g/dL 8:46 AM VENDOR QUALITY SUPERVISOR Hematocrit 21.3 (L) 35.5 - 03/18/2021 [place] 44.9 % 8:46 AM VENDOR QUALITY SUPERVISOR Erythrocytes 2.44 (L) 3.92 - 03/18/2021 [place] 5.13 8:46 AM VENDOR QUALITY SUPERVISOR x10(12)/L MCV 87.3 78.2 - 03/18/2021 [place] 97.9 fL 8:46 AM VENDOR QUALITY SUPERVISOR RBC Distrib Width 19.8 (H) 12.2 - 03/18/2021 [place] 16.1 % 8:46 AM VENDOR QUALITY SUPERVISOR Platelet Count 77 (L) 157 - 371 03/18/2021 [place] x10(9)/L 8:46 AM VENDOR QUALITY SUPERVISOR Leukocytes 6.2 3.4 - 9.6 03/18/2021 [place] x10(9)/L 8:46 AM VENDOR QUALITY SUPERVISOR Neutrophils 3.96 1.56 - 03/18/2021 [place] 6.45 8:46 AM VENDOR QUALITY SUPERVISOR x10(9)/L Lymphocytes 1.35 0.95 - 03/18/2021 [place] 3.07 8:46 AM VENDOR QUALITY SUPERVISOR x10(9)/L Monocytes 0.74 0.26 - 03/18/2021 [place] 0.81 8:46 AM VENDOR QUALITY SUPERVISOR x10(9)/L Eosinophils 0.08 0.03 - 03/18/2021 MKTO 0.48 8:46 AM VENDOR QUALITY SUPERVISOR x10(9)/L Basophils <0.03 0.01 - 03/18/2021 MKTO 0.08 8:46 AM VENDOR QUALITY SUPERVISOR x10(9)/L Specimen Anatomical Collection Method Collection Time Receive d Time (Source) Location / / Volume Laterality Blood (Blood, 03/18/2021 8:35 AM 03/18/20 8:41 Venous) VENDOR QUALITY SUPERVISOR AM VENDOR QUALITY SUPERVISOR Darian Thomas M.D., J.D. LAB BLOOD ADD-ON Performing Organization Address [facility] Phon e Number [facility]- [address] [place], [place] [id number] [place] [address] Magnesium (03/17/2021 6:35 AM VENDOR QUALITY SUPERVISOR) P athologist Signature Magnesium, P 1.7 1.7 - 2.3 03/17/2021 MKTO mg/dL 7:24 AM VENDOR QUALITY SUPERVISOR Specimen Anatomical Collection Method Collection Time Receive d Time (Source) Location / / Volume Laterality Blood (Blood, 03/17/2021 6:35 AM 03/17/20 6:43 Venous) VENDOR QUALITY SUPERVISOR AM VENDOR QUALITY SUPERVISOR Ulises Santillan LAB BLOOD ADD-ON Performing Organization Address [facility] Phon e Number [facility]- [address] [place] [address] LAB [place] [id number] [address] (ABNORMAL) Basic Metabolic Panel (03/17/2021 6:35 AM VENDOR QUALITY SUPERVISOR) Analysis Performed At Patho logist Time Signature Potassium, P 3.7 3.6 - 5.2 03/17/2021 [place] mmol/L 7:24 AM VENDOR QUALITY SUPERVISOR Sodium, P 141 135 - 145 03/17/2021 [place] mmol/L 7:24 AM VENDOR QUALITY SUPERVISOR Chloride, P 106 98 - 107 03/17/2021 [place] mmol/L 7:24 AM VENDOR QUALITY SUPERVISOR Bicarbonate, P 21 (L) 22 - 29 03/17/2021 [place] mmol/L 7:24 AM VENDOR QUALITY SUPERVISOR Anion Gap, P 14 7 - 15 03/17/2021 [facility] 7:24 AM VENDOR QUALITY SUPERVISOR BUN (Blood Urea 5 (L) 6 - 21 03/17/2021 [place] Nitrogen), P mg/dL 7:24 AM VENDOR QUALITY SUPERVISOR Creatinine 0.35 (L) 0.59 - 03/17/2021 [facility] 1.04 mg/dL 7:24 AM VENDOR QUALITY SUPERVISOR eGFR-Black/Afri >90 >=60 03/17/2021 [facility] can [place] mL/min/BSA 7:24 AM VENDOR QUALITY SUPERVISOR Comment: ----ADDITIONAL INFORMATION---- Estimated GFR calculated using the 2009 CKD_EPI creatinine equation. eGFR Non-Black/ >90 >=60 mL/min/BSA 03/17/2021 7:24 AM VENDOR QUALITY SUPERVISOR [facility] Comment: ----ADDITIONAL INFORMATION---- Estimated GFR calculated using the 2009 CKD_EPI creatinine equation. Calcium, Total, P 9.7 8.6 - 10.0 mg/dL 03/17/2021 7:24 AM VENDOR QUALITY SUPERVISOR [facility] Glucose, P 116 70 - 140 mg/dL 03/17/2021 7:24 AM VENDOR QUALITY SUPERVISOR M [facility] Specimen Anatomical Collection Method Collection Time Receive d Time (Source) Location / / Volume Laterality Blood (Blood, 03/17/2021 6:35 AM 03/17/20 6:43 Venous) VENDOR QUALITY SUPERVISOR AM VENDOR QUALITY SUPERVISOR Harish Ansari P.A.-C., M.S. LAB BLOOD ADD-ON Performing Organization Address City/State/ZIP Code Phon e Number [facility]- [address] [place] [address] [place] [address] System in [address] (ABNORMAL) CBC with Differential, Blood (03/17/2021 6:35 AM VENDOR QUALITY SUPERVISOR) [facility] Method Time Signature Hemoglobin 7.7 (L) 11.6 - 03/17/2021 [place] 15.0 g/dL 6:58 AM VENDOR QUALITY SUPERVISOR Hematocrit 22.3 (L) 35.5 - 03/17/2021 [facility] 44.9 % 6:58 AM VENDOR QUALITY SUPERVISOR Erythrocytes 2.56 (L) 3.92 - 03/17/2021 [place] 5.13 6:58 AM VENDOR QUALITY SUPERVISOR x10(12)/L MCV 87.1 78.2 - 03/17/2021 [place] 97.9 fL 6:58 AM VENDOR QUALITY SUPERVISOR RBC Distrib Width 19.3 (H) 12.2 - 03/17/2021 [facility] 16.1 % 6:58 AM VENDOR QUALITY SUPERVISOR Platelet Count 68 (L) 157 - 371 03/17/2021 [facility] x10(9)/L 6:58 AM VENDOR QUALITY SUPERVISOR Leukocytes 6.1 3.4 - 9.6 03/17/2021 [facility] x10(9)/L 6:58 AM VENDOR QUALITY SUPERVISOR Neutrophils 3.82 1.56 - 03/17/2021 [facility] 6.45 6:58 AM VENDOR QUALITY SUPERVISOR x10(9)/L Lymphocytes 1.39 0.95 - 03/17/2021 [facility] 3.07 6:58 AM VENDOR QUALITY SUPERVISOR x10(9)/L Monocytes 0.77 0.26 - 03/17/2021 [facility] 0.81 6:58 AM VENDOR QUALITY SUPERVISOR x10(9)/L Eosinophils 0.05 0.03 - 03/17/2021 [facility] 0.48 6:58 AM VENDOR QUALITY SUPERVISOR x10(9)/L Basophils <0.03 0.01 - 03/17/2021 [facility] 0.08 6:58 AM VENDOR QUALITY SUPERVISOR x10(9)/L Specimen Anatomical Collection Method Collection Time Receive d Time (Source) Location / / Volume Laterality Blood (Blood, 03/17/2021 6:35 AM 03/17/20 6:42 Venous) VENDOR QUALITY SUPERVISOR AM VENDOR QUALITY SUPERVISOR Harish Ansari P.A.-C., M.S. LAB BLOOD ADD-ON Performing Organization Address City/[facility] Phon e Number [address] [address] [place] [address] System in [address] (ABNORMAL) Hematocrit (03/16/2021 4:14 PM VENDOR QUALITY SUPERVISOR) P athologist Signature Hematocrit 23.7 (L) 35.5 - 44.9 03/16/2021 [facility] % 4:25 PM VENDOR QUALITY SUPERVISOR Specimen Anatomical Collection Method Collection Time Receive d Time (Source) Location / / Volume Laterality Blood (Blood, 03/16/2021 4:14 PM 03/16/20 21 4:23 Venous) VENDOR QUALITY SUPERVISOR PM VENDOR QUALITY SUPERVISOR Lizet Navarro M.D. LAB BLOOD ADD-ON Performing Organization Address City/State/ZIP [facility] Phon e Number [facility]- [address] [place] [phone] [place] [address] System in [address] (ABNORMAL) Hemoglobin (03/16/2021 4:14 PM VENDOR QUALITY SUPERVISOR) P athologist Signature Hemoglobin 8.2 (L) 11.6 - 15.0 03/16/2021 [facility] g/dL 4:25 PM VENDOR QUALITY SUPERVISOR Specimen Anatomical Collection Method Collection Time Receive d Time (Source) Location / / Volume Laterality Blood (Blood, 03/16/2021 4:14 PM 03/16/20 4:23 Venous) VENDOR QUALITY SUPERVISOR PM VENDOR QUALITY SUPERVISOR Lizet Navarro M.D. LAB BLOOD ADD-ON Performing Organization Address City/State/ZIP Code Phon e Number [facility]- [address] [place] [phone] [place] [address] System in [address] (ABNORMAL) Hematocrit (03/16/2021 12:58 PM VENDOR QUALITY SUPERVISOR) P athologist Signature Hematocrit 24.8 (L) 35.5 - 44.9 03/16/2021 [place] % 1:27 PM VENDOR QUALITY SUPERVISOR Specimen Anatomical Collection Method Collection Time Receive d Time (Source) Location / / Volume Laterality Blood (Blood, 03/16/2021 12:58 03/16/2021 1:04 Venous) PM VENDOR QUALITY SUPERVISOR PM VENDOR QUALITY SUPERVISOR Lizet Navarro M.D. LAB BLOOD ADD-ON Performing Organization Address City/State/ZIP Code Phon e Number [facility]- [address] [place] [phone] [place] [address] System in [address] (ABNORMAL) Hemoglobin (03/16/2021 12:58 PM VENDOR QUALITY SUPERVISOR) P athologist Signature Hemoglobin 8.3 (L) 11.6 - 15.0 03/16/2021 [place] g/dL 1:27 PM VENDOR QUALITY SUPERVISOR Specimen Anatomical Collection Method Collection Time Receive d Time (Source) Location / / Volume Laterality Blood (Blood, 03/16/2021 12:58 03/16/2021 1:04 Venous) PM VENDOR QUALITY SUPERVISOR PM VENDOR QUALITY SUPERVISOR Lizet Navarro M.D. LAB BLOOD ADD-ON Performing Organization Address City/State/ZIP Code Phon e Number [facility]- [address] [place] [address] [place] [address] System in [place] [address] [facility] Transfuse Red Blood Cells : (03/16/2021 11:58 AM VENDOR QUALITY SUPERVISOR) Lizet Navarro M.D. BLOOD TRANSFUSION ORDERABLES Transfuse Red Blood Cells : , 2 Units (03/16/2021 11:58 AM VENDOR QUALITY SUPERVISOR) Saerna Navarro M.D. BLOOD TRANSFUSION ORDERABLES Transfuse Red Blood Cells : (03/16/2021 11:08 AM VENDOR QUALITY SUPERVISOR) Saerna Navarro M.D. BLOOD TRANSFUSION ORDERABLES Transfuse Fresh Frozen Plasma :Bleeding with altered coagulation; 180 mL/hr (03/16/2021 10:21 AM VENDOR QUALITY SUPERVISOR) Saerna Navarro M.D. BLOOD TRANSFUSION ORDERABLES Transfuse Fresh Frozen Plasma :Bleeding with altered coagulation; 180 mL/hr, 2 Units (03/16/2021 10:21 AM VENDOR QUALITY SUPERVISOR) Saerna Navarro M.D. BLOOD TRANSFUSION ORDERABLES Transfuse Fresh Frozen Plasma :Bleeding with altered coagulation; 180 mL/hr (03/16/2021 10:20 AM VENDOR QUALITY SUPERVISOR) Saerna Navarro M.D. BLOOD TRANSFUSION ORDERABLES Transfuse Red Blood Cells : (03/16/2021 9:06 AM VENDOR QUALITY SUPERVISOR) Lowell Thomas APRNNLala., M.S.N. BLOOD TRANSFUSI ON ORDERABLES Transfuse Red Blood Cells : , 1 Units (03/16/2021 9:06 AM VENDOR QUALITY SUPERVISOR) Lowell Thomas APRNNLala., M.S.N. BLOOD TRANSFUSI ON ORDERABLES (ABNORMAL) Fibrinogen (03/16/2021 7:32 AM VENDOR QUALITY SUPERVISOR) P athologist Signature Fibrinogen, P 135 (L) 200 - 393 03/16/2021 [place] mg/dL 7:56 AM VENDOR QUALITY SUPERVISOR Specimen Anatomical Collection Method Collection Time Receive d Time (Source) Location / / Volume Laterality Blood (Blood, 03/16/2021 7:32 AM 03/16/20 7:40 Venous) VENDOR QUALITY SUPERVISOR AM VENDOR QUALITY SUPERVISOR Tariq CheryB.S. LAB BLOOD ADD-ON Performing Organization Address City/[facility]/ZIP Code Phon e Number [facility]- [address] [place] [phone] [place] [address] System in [address] (ABNORMAL) APTT (Activated Partial Thromboplastin Time) (03/16/2021 7:32 AM VENDOR QUALITY SUPERVISOR) P athologist Signature Activated 54 (H) 25 - 37 03/16/2021 [facility] Partial sec 7:53 AM VENDOR QUALITY SUPERVISOR Thrombopl Time, P Specimen Anatomical Collection Method Collection Time Receive d Time (Source) Location / / Volume Laterality Blood (Blood, 03/16/2021 7:32 AM 03/16/20 7:40 Venous) VENDOR QUALITY SUPERVISOR AM VENDOR QUALITY SUPERVISOR Tariq CheryB.S. LAB BLOOD ADD-ON Performing Organization Address [facility] Phon e Number [facility]- [address] [place] [phone] [place] [address] System in [address] (ABNORMAL) Prothrombin Time (PT) (03/16/2021 7:32 AM VENDOR QUALITY SUPERVISOR) Patholo gist Method Time Signature Prothrombin 23.4 (H) 9.4 - 12.5 03/16/2021 [facility] Time, P sec 7:51 AM VENDOR QUALITY SUPERVISOR INR 2.1 0.9 - 1.1 03/16/2021 [facility] 7:51 AM VENDOR QUALITY SUPERVISOR Comment: ----ADDITIONAL INFORMATION---- Standard intensity warfarin therapeutic range: 2.0 to 3.0 ?? High intensity warfarin therapeutic rang e: 2.5 to 3.5 Specimen Anatomical Collection Method Collection Time Receive d Time (Source) Location / / Volume Laterality Blood (Blood, 03/16/2021 7:32 AM 03/16/20 7:40 Venous) VENDOR QUALITY SUPERVISOR AM VENDOR QUALITY SUPERVISOR Tariq CheryB.S. LAB BLOOD ADD-ON Performing Organization Address City/[facility]/ZIP Code Phon e Number [facility]- [address] [place] [phone] [place] [address] System in [address] (ABNORMAL) Hemoglobin (03/16/2021 7:31 AM VENDOR QUALITY SUPERVISOR) athologist Signature Hemoglobin 5.3 (CL) 11.6 - 15.0 03/16/2021 [place] g/dL 7:57 AM VENDOR QUALITY SUPERVISOR Specimen Anatomical Collection Method Collection Time Receive d Time (Source) Location / / Volume Laterality Blood (Blood, 03/16/2021 7:31 AM 03/16/20 7:40 Venous) VENDOR QUALITY SUPERVISOR AM VENDOR QUALITY SUPERVISOR Tariq CheryB.S. LAB BLOOD ADD-ON Performing Organization Address City/[facility]/ZIP Code Phon e Number [address] [address] [place] [address] System in [address] Testing Location (03/16/2021 5:44 AM VENDOR QUALITY SUPERVISOR) athologist Signature Testing [facility] DEFAULT 03/16/2021 [place] Location 5:50 AM VENDOR QUALITY SUPERVISOR Specimen Anatomical Collection Method Collection Time Receive d Time (Source) Location / / Volume Laterality Blood 03/16/2021 5:44 AM 5:49 VENDOR QUALITY SUPERVISOR AM VENDOR QUALITY SUPERVISOR Tariq CheryB.S. LAB BLOOD BANK TEST ORDERABL ES Performing Organization Address City/[facility]/ZIP [facility] Phon e Number [facility]- [address] [place] [phone] [place] [address] System in [address] Type and Screen (with reflex Antibody ID) (03/16/2021 5:44 AM VENDOR QUALITY SUPERVISOR) [facility] gist Method Time Signature ABO Group B 03/16/2021 [place] 6:49 AM VENDOR QUALITY SUPERVISOR Rh Type POS 03/16/2021 [place] 6:49 AM VENDOR QUALITY SUPERVISOR Antibody Screen NEG 03/16/2021 [place] 6:49 AM VENDOR QUALITY SUPERVISOR Type & Screen 03/19/2021 03/16/2021 [facility] Expiration 23:59 6:49 AM VENDOR QUALITY SUPERVISOR ELXM Eligible Y 03/16/2021 [place] 6:49 AM VENDOR QUALITY SUPERVISOR Specimen Anatomical Collection Method Collection Time Receive d Time (Source) Location / / Volume Laterality Blood (Blood, 03/16/2021 5:44 AM 03/16/20 5:49 Venous) VENDOR QUALITY SUPERVISOR AM VENDOR QUALITY SUPERVISOR Tariq Santillan LAB BLOOD BANK TEST ORDERABL ES Performing Organization Address [facility] Phon e Number [address] [place] [address] Glucose, POCT (03/16/2021 5:43 AM VENDOR QUALITY SUPERVISOR) P athologist Signature Glucose, POCT, 121 70 - 140 03/16/2021 [place] B mg/dL 5:43 AM VENDOR QUALITY SUPERVISOR Specimen Anatomical Collection Method Collection Time Receive d Time (Source) Location / / Volume Laterality Blood 03/16/2021 5:43 AM 5:57 VENDOR QUALITY SUPERVISOR AM VENDOR QUALITY SUPERVISOR Nick Rals LAB POCT ORDERABLES-MANUAL Performing Organization Address [facility] Phon e Number [facility]- [address] [place] [address] Transfuse Fresh Frozen Plasma :Bleeding with altered coagulation; 180 mL/hr (03/16/2021 5:00 AM VENDOR QUALITY SUPERVISOR) Lizet Navarro M.D. BLOOD TRANSFUSION ORDERABLES Transfuse Fresh Frozen Plasma :Bleeding with altered coagulation; 180 mL/hr, 2 Units (03/16/2021 5:00 AM VENDOR QUALITY SUPERVISOR) Lizet Navarro M.D. BLOOD TRANSFUSION ORDERABLES (ABNORMAL) Calcium, Ionized (03/16/2021 4:57 AM VENDOR QUALITY SUPERVISOR) P athologist Signature Calcium, 4.49 (L) 4.65 - 03/16/2021 [place] Ionized, B 5.30 mg/dL 5:19 AM VENDOR QUALITY SUPERVISOR Specimen Anatomical Collection Method Collection Time Receive d Time (Source) Location / / Volume Laterality Blood 03/16/2021 4:57 AM 5:05 VENDOR QUALITY SUPERVISOR AM VENDOR QUALITY SUPERVISOR Nola J Elana ART SALES CONSULTANT, C.N.P., M.S.N. LAB BLOOD NON A DD-ON Performing Organization Address City/[facility] Phon e Number [facility]- [address] [place] [phone] [place] [address] System in [address] (ABNORMAL) pH (03/16/2021 4:57 AM VENDOR QUALITY SUPERVISOR) P athologist Signature pH 7.49 (H) 7.35 - 7.45 03/16/2021 [place] pH 5:19 AM VENDOR QUALITY SUPERVISOR Specimen Anatomical Collection Method Collection Time Receive d Time (Source) Location / / Volume Laterality Blood 03/16/2021 4:57 AM 5:05 VENDOR QUALITY SUPERVISOR AM VENDOR QUALITY SUPERVISOR Nola Huitron APRN, C.N.P., M.S.N. LAB HISTORICAL ORDERS Performing Organization Address [facility] Phon e Number [facility]- [address] [place] [phone] [place] [address] (ABNORMAL) CBC without Differential (03/16/2021 4:21 AM VENDOR QUALITY SUPERVISOR) Patholo gist Method Time Signature Hemoglobin 6.2 (L) 11.6 - 03/16/2021 [place] 15.0 g/dL 4:54 AM VENDOR QUALITY SUPERVISOR Hematocrit 18.3 (L) 35.5 - 03/16/2021 [place] 44.9 % 4:54 AM VENDOR QUALITY SUPERVISOR Erythrocytes 1.95 (L) 3.92 - 03/16/2021 [place] 5.13 4:54 AM VENDOR QUALITY SUPERVISOR x10(12)/L MCV 93.8 78.2 - 03/16/2021 [place] 97.9 fL 4:54 AM VENDOR QUALITY SUPERVISOR RBC Distrib Width 20.1 (H) 12.2 - 03/16/2021 [place] 16.1 % 4:54 AM VENDOR QUALITY SUPERVISOR Platelet Count 80 (L) 157 - 371 03/16/2021 [place] x10(9)/L 4:54 AM VENDOR QUALITY SUPERVISOR Leukocytes 6.3 3.4 - 9.6 03/16/2021 [place] x10(9)/L 4:54 AM VENDOR QUALITY SUPERVISOR Specimen Anatomical Collection Method Collection Time Receive d Time (Source) Location / / Volume Laterality Blood (Blood, 03/16/2021 4:21 AM 03/16/20 4:30 Venous) VENDOR QUALITY SUPERVISOR AM VENDOR QUALITY SUPERVISOR Nola Huitron APRN, C.N.P., M.S.N. LAB BLOOD ADD-O N Performing Organization Address City/State/ZIP Code Phon e Number [facility]- [address] [place] [address] [place] [address] System in [place] [address] [place] [address] (ABNORMAL) Comprehensive Metabolic Panel (03/16/2021 4:21 AM VENDOR QUALITY SUPERVISOR) Analysis Performed At Patho logist Time Signature Potassium, P 3.6 3.6 - 5.2 03/16/2021 [place] mmol/L 4:53 AM VENDOR QUALITY SUPERVISOR Sodium, P 140 135 - 145 03/16/2021 [place] mmol/L 4:53 AM VENDOR QUALITY SUPERVISOR Chloride, P 109 (H) 98 - 107 03/16/2021 [place] mmol/L 4:53 AM VENDOR QUALITY SUPERVISOR Bicarbonate, P 20 (L) 22 - 29 03/16/2021 [place] mmol/L 4:53 AM VENDOR QUALITY SUPERVISOR Anion Gap, P 11 7 - 15 03/16/2021 [place] 4:53 AM VENDOR QUALITY SUPERVISOR BUN (Blood Urea 5 (L) 6 - 21 03/16/2021 [place] Nitrogen), P mg/dL 4:53 AM VENDOR QUALITY SUPERVISOR Creatinine 0.40 (L) 0.59 - 03/16/2021 [place] 1.04 mg/dL 4:53 AM VENDOR QUALITY SUPERVISOR eGFR-Black/Afri >90 >=60 03/16/2021 [place] can [place] mL/min/BSA 5:29 AM VENDOR QUALITY SUPERVISOR Comment: ----ADDITIONAL INFORMATION---- Estimated GFR calculated using the 2009 CKD_EPI creatinine equation. eGFR Non-Black/ >90 >=60 mL/min/BSA 03/16/2021 5:29 AM VENDOR QUALITY SUPERVISOR [place] Comment: ----ADDITIONAL INFORMATION---- Estimated GFR calculated using the 2009 CKD_EPI creatinine equation. Calcium, Total, P 8.9 8.6 - 10.0 mg/dL 03/16/2021 4:53 AM VENDOR QUALITY SUPERVISOR [place] Glucose, P 135 70 - 140 mg/dL 03/16/2021 4:53 AM VENDOR QUALITY SUPERVISOR M [place] Protein, Total, P 5.2 (L) 6.3 - 7.9 g/dL 03/16/2021 4:53 A M VENDOR QUALITY SUPERVISOR [place] Albumin, P 4.0 3.5 - 5.0 g/dL 03/16/2021 4:53 AM VENDOR QUALITY SUPERVISOR M [facility] Aspartate Aminotransferase 33 8 - 43 U/L 03/16/2021 4 :53 AM VENDOR QUALITY SUPERVISOR [place] (AST), P Alkaline Phosphatase, P 43 35 - 104 U/L 03/16/2021 4: 53 AM VENDOR QUALITY SUPERVISOR [facility] Alanine Aminotransferase 8 7 - 45 U/L 03/16/2021 4:5 3 AM VENDOR QUALITY SUPERVISOR [place] (ALT), P Bilirubin, Total, P 5.1 (H) <=1.2 mg/dL 03/16/2021 4:53 AM VENDOR QUALITY SUPERVISOR [facility] Specimen Anatomical Collection Method Collection Time Receive d Time (Source) Location / / Volume Laterality Blood (Blood, 03/16/2021 4:21 AM 03/16/20 4:53 Venous) VENDOR QUALITY SUPERVISOR AM VENDOR QUALITY SUPERVISOR Katrin Thomas APRN.N.Shanita., M.S.N. LAB BLOOD ADD-O N Performing Organization Address City/[facility] Phon e Number [address] [place] [address] System in [address] (ABNORMAL) Phosphorus Inorganic (03/16/2021 4:21 AM VENDOR QUALITY SUPERVISOR) P athologist Signature Phosphorus 2.0 (L) 2.5 - 4.5 03/16/2021 [place] (Inorganic), P mg/dL 4:53 AM VENDOR QUALITY SUPERVISOR Specimen Anatomical Collection Method Collection Time Receive d Time (Source) Location / / Volume Laterality Blood (Blood, 03/16/2021 4:21 AM 03/16/20 4:53 Venous) VENDOR QUALITY SUPERVISOR AM VENDOR QUALITY SUPERVISOR Katrin Thomas APRN.N.P., M.S.N. LAB BLOOD ADD-O N Performing Organization Address City/State/ZIP Code Phon e Number [facility]- [address] [place] [phone] [place] [address] System in [place] [address] [place] [address] Magnesium (03/16/2021 4:21 AM VENDOR QUALITY SUPERVISOR) P athologist Signature Magnesium, P 1.7 1.7 - 2.3 03/16/2021 [place] mg/dL 4:53 AM VENDOR QUALITY SUPERVISOR Specimen Anatomical Collection Method Collection Time Receive d Time (Source) Location / / Volume Laterality Blood (Blood, 03/16/2021 4:21 AM 03/16/20 4:53 Venous) VENDOR QUALITY SUPERVISOR AM VENDOR QUALITY SUPERVISOR Katrin Thomas APRN.Sera.Shanita., M.S.N. 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 BLOOD TRANSFUSI ON ORDERABLES CT Abdomen Pelvis with IV Contrast (03/16/2021 2:36 AM VENDOR QUALITY SUPERVISOR) Anatomical Region Laterality Modality Abdomen, Pelvis, Abdominal RST LOS, Abdominal ARZ LOS, N/A Computed Tomography Abdominal FLA LOS Specimen (Source) Anatomical Collection Method Collection Time Re ceived Time Location / / Volume Laterality 03/16/2021 7:41 AM VENDOR QUALITY SUPERVISOR Impressions 03/16/2021 7:49 AM VENDOR QUALITY SUPERVISOR 1. Newly identified CHF, with associated compressive atelectasis at each lung base. 2. Stable abdominal ascites with no iden tified area of hemorrhage. 3. Newly identified anasarca. 4. Heterogeneous appearance of the liver with splenomegaly, the combination of findings suggestive of hepatic inflammat ion. Clinical correlation is recommended. Narrative 03/16/2021 7:49 AM VENDOR QUALITY SUPERVISOR EXAM: CT ABDOMEN PELVIS WITH IV CONTRAST [...] hailey picious lesion. vRad: ??Findings concordant with escobar Cullenad report. Procedure Note Migue Andrews M.D. [...] Test, POCT, Urine (lab) (03/16/2021 2:11 AM VENDOR QUALITY SUPERVISOR) athologist Signature Negative 03/16/2021 [place] Test, POCT, U 2:19 AM VENDOR QUALITY SUPERVISOR Specimen Anatomical Collection Method Collection Time Receive d Time (Source) Location / / Volume Laterality Urine (Urine, 03/16/2021 2:11 AM 03/16/20 2:11 Clean Catch) VENDOR QUALITY SUPERVISOR AM VENDOR QUALITY SUPERVISOR Tariq CheryB.S. LAB POCT ORDERABLES - DEVICE Performing Organization Address City/State/ZIP Code Phon e Number [facility]- [address] [place] [phone] [place] [address] System in [address] (ABNORMAL) Fibrinogen (03/16/2021 1:11 AM VENDOR QUALITY SUPERVISOR) athologist Signature Fibrinogen, P 57 (CL) 200 - 393 03/16/2021 [place] mg/dL 1:46 AM VENDOR QUALITY SUPERVISOR Specimen Anatomical Collection Method Collection Time Receive d Time (Source) Location / / Volume Laterality Blood (Blood, 03/16/2021 1:11 AM 03/16/20 1:15 Venous) VENDOR QUALITY SUPERVISOR AM VENDOR QUALITY SUPERVISOR Tariq CheryB.S. LAB BLOOD ADD-ON Performing Organization Address [facility] Phon e Number [facility]- [address] [place] [phone] [place] [address] System in [address] (ABNORMAL) APTT (Activated Partial Thromboplastin Time) (03/16/2021 1:11 AM VENDOR QUALITY SUPERVISOR) P athologist Signature Activated 61 (H) 25 - 37 03/16/2021 [place] Partial sec 1:29 AM VENDOR QUALITY SUPERVISOR Thrombopl Time, P Specimen Anatomical Collection Method Collection Time Receive d Time (Source) Location / / Volume Laterality Blood (Blood, 03/16/2021 1:11 AM 03/16/20 1:15 Venous) VENDOR QUALITY SUPERVISOR AM VENDOR QUALITY SUPERVISOR Tariq CheryB.S. LAB BLOOD ADD-ON Performing Organization Address [facility] Phon e Number [facility]- [address] [place] [phone] [place] [address] System in [address] (ABNORMAL) Prothrombin Time (PT) (03/16/2021 1:11 AM VENDOR QUALITY SUPERVISOR) Patholo gist Method Time Signature Prothrombin 26.9 (H) 9.4 - 12.5 03/16/2021 [place] Time, P sec 1:45 AM VENDOR QUALITY SUPERVISOR INR 2.4 0.9 - 1.1 03/16/2021 MKTO 1:45 AM VENDOR QUALITY SUPERVISOR Comment: ----ADDITIONAL INFORMATION---- Standard intensity warfarin therapeutic range: 2.0 to 3.0 ?? High intensity warfarin therapeutic rang e: 2.5 to 3.5 Specimen Anatomical Collection Method Collection Time Receive d Time (Source) Location / / Volume Laterality Blood (Blood, 03/16/2021 1:11 AM 03/16/20 1:15 Venous) VENDOR QUALITY SUPERVISOR AM VENDOR QUALITY SUPERVISOR Tariq CheryB.S. LAB BLOOD ADD-ON Performing Organization Address City/[facility]/ZIP Code Phon e Number [facility]- [id number] [place] [address] [place] [address] Potassium (03/16/2021 12:08 AM VENDOR QUALITY SUPERVISOR) P athologist Signature Potassium, P 3.9 3.6 - 5.2 03/16/2021 [facility] mmol/L 12:33 AM VENDOR QUALITY SUPERVISOR Specimen Anatomical Collection Method Collection Time Receive d Time (Source) Location / / Volume Laterality Blood (Blood, 03/16/2021 12:08 03/16/2021 Venous) AM VENDOR QUALITY SUPERVISOR 12:33 AM VENDOR QUALITY SUPERVISOR Tariq DanielSSuma LAB BLOOD ADD-ON Performing Organization Address City/[facility] Code Phon e Number [facility]- [address] [place] [phone] [place] [address] System in [address] (ABNORMAL) Hemoglobin (03/16/2021 12:08 AM VENDOR QUALITY SUPERVISOR) athologist Signature Hemoglobin 7.3 (L) 11.6 - 15.0 03/16/2021 [place] g/dL 12:26 AM VENDOR QUALITY SUPERVISOR Specimen Anatomical Collection Method Collection Time Receive d Time (Source) Location / / Volume Laterality Blood (Blood, 03/16/2021 12:08 03/16/2021 Venous) AM VENDOR QUALITY SUPERVISOR 12:26 AM VENDOR QUALITY SUPERVISOR Nola Huitron APRN, C.N.P., M.S.N. LAB BLOOD ADD-O N Performing Organization Address City/[facility]/ZIP [facility] Phon e Number [facility]- [address] [place] [phone] [place] [address] (ABNORMAL) Glucose, POCT (03/15/2021 11:33 PM VENDOR QUALITY SUPERVISOR) P athologist Signature Glucose, POCT, 160 (H) 70 - 140 03/15/2021 [facility] B mg/dL 11:33 PM VENDOR QUALITY SUPERVISOR Specimen Anatomical Collection Method Collection Time Receive d Time (Source) Location / / Volume Laterality Blood 03/15/2021 11:33 03/16/2021 PM VENDOR QUALITY SUPERVISOR 12:15 AM VENDOR QUALITY SUPERVISOR Generic Rals LAB POCT ORDERABLES-MANUAL Performing Organization Address City/[facility] Phon e Number [facility]- [facility] [place] [address] [place] [address] System in [address] Transfuse Red Blood Cells : (03/15/2021 11:07 PM VENDOR QUALITY SUPERVISOR) Nola Huitron APRN, C.N.P., M.S.N. BLOOD TRANSFUSI ON ORDERABLES Transfuse Red Blood Cells : , 1 Units (03/15/2021 11:07 PM VENDOR QUALITY SUPERVISOR) Nola Huitron APRN, C.N.P., M.S.N. BLOOD TRANSFUSI ON ORDERABLES (ABNORMAL) Hemoglobin (03/15/2021 8:11 PM VENDOR QUALITY SUPERVISOR) athologist Signature Hemoglobin 6.6 (L) 11.6 - 15.0 03/15/2021 [facility] g/dL 8:27 PM VENDOR QUALITY SUPERVISOR Specimen Anatomical Collection Method Collection Time Receive d Time (Source) Location / / Volume Laterality Blood (Blood, 03/15/2021 8:11 PM 03/15/20 8:23 Venous) VENDOR QUALITY SUPERVISOR PM VENDOR QUALITY SUPERVISOR Nola Huitron APRN, C.N.P., M.S.N. LAB BLOOD ADD-O N Performing Organization Address City/[facility] Code Phon e Number [facility]- [facility] [place] [address] [place] [address] System in [address] Transfuse Fresh Frozen Plasma :Bleeding with altered coagulation; 180 mL/hr (03/15/2021 6:20 PM VENDOR QUALITY SUPERVISOR) Jailene Barnhart RDN, TALI BLOOD TRANSFUSION ORDERABLES (ABNORMAL) Hemoglobin (03/15/2021 4:52 PM VENDOR QUALITY SUPERVISOR) P athologist Signature Hemoglobin 7.6 (L) 11.6 - 15.0 03/15/2021 [facility] g/dL 4:57 PM VENDOR QUALITY SUPERVISOR Specimen Anatomical Collection Method Collection Time Receive d Time (Source) Location / / Volume Laterality Blood (Blood, 03/15/2021 4:52 PM 03/15/20 4:55 Venous) VENDOR QUALITY SUPERVISOR PM VENDOR QUALITY SUPERVISOR Lizet Navarro M.D. LAB BLOOD ADD-ON Performing Organization Address City/State/ZIP Code Phon e Number [address] [address] [place] [address] System in [address] (ABNORMAL) Hematocrit (03/15/2021 4:52 PM VENDOR QUALITY SUPERVISOR) P athologist Signature Hematocrit 22.4 (L) 35.5 - 44.9 03/15/2021 [facility] % 4:57 PM VENDOR QUALITY SUPERVISOR Specimen Anatomical Collection Method Collection Time Receive d Time (Source) Location / / Volume Laterality Blood (Blood, 03/15/2021 4:52 PM 03/15/20 4:55 Venous) VENDOR QUALITY SUPERVISOR PM VENDOR QUALITY SUPERVISOR Lizet Navarro M.D. LAB BLOOD ADD-ON Performing Organization Address City/[facility]/ZIP Code Phon e Number [address] [address] [place] [address] Transfuse Fresh Frozen Plasma :Bleeding with altered coagulation; 180 mL/hr (03/15/2021 3:34 PM VENDOR QUALITY SUPERVISOR) Lizet Navarro M.D. BLOOD TRANSFUSION ORDERABLES (ABNORMAL) Phosphorus Inorganic (03/15/2021 2:29 PM VENDOR QUALITY SUPERVISOR) P athologist Signature Phosphorus 2.3 (L) 2.5 - 4.5 03/15/2021 [place] (Inorganic), P mg/dL 5:27 PM VENDOR QUALITY SUPERVISOR Specimen Anatomical Collection Method Collection Time Receive d Time (Source) Location / / Volume Laterality Blood (Blood, 03/15/2021 2:29 PM 03/15/20 5:12 Venous) VENDOR QUALITY SUPERVISOR PM VENDOR QUALITY SUPERVISOR Lizet Navarro M.D. LAB BLOOD ADD-ON Performing Organization Address City/[facility]/ZIP Code Phon e Number [address] [address] [place] [address] System [address] Magnesium (03/15/2021 2:29 PM VENDOR QUALITY SUPERVISOR) athologist Signature Magnesium, P 1.8 1.7 - 2.3 03/15/2021 [place] mg/dL 5:27 PM VENDOR QUALITY SUPERVISOR Specimen Anatomical Collection Method Collection Time Receive d Time (Source) Location / / Volume Laterality Blood (Blood, 03/15/2021 2:29 PM 03/15/20 5:12 Venous) VENDOR QUALITY SUPERVISOR PM VENDOR QUALITY SUPERVISOR Lizet Navarro M.D. LAB BLOOD ADD-ON Performing Organization Address City/State/ZIP Code Phon e Number [facility]- [address] [place] [address] [place] [address] System in [address] (ABNORMAL) Hemoglobin (03/15/2021 2:29 PM VENDOR QUALITY SUPERVISOR) athologist Signature Hemoglobin 7.9 (L) 11.6 - 15.0 03/15/2021 [facility] g/dL 2:50 PM VENDOR QUALITY SUPERVISOR Specimen Anatomical Collection Method Collection Time Receive d Time (Source) Location / / Volume Laterality Blood (Blood, 03/15/2021 2:29 PM 03/15/20 2:43 Venous) VENDOR QUALITY SUPERVISOR PM VENDOR QUALITY SUPERVISOR Lizet Navarro M.D. LAB BLOOD ADD-ON Performing Organization Address City/State/ZIP Code Phon e Number [facility]- [address] [place] [address] [place] [address] System in [address] (ABNORMAL) Hematocrit (03/15/2021 2:29 PM VENDOR QUALITY SUPERVISOR) athologist Signature Hematocrit 23.3 (L) 35.5 - 44.9 03/15/2021 [facility] % 2:50 PM VENDOR QUALITY SUPERVISOR Specimen Anatomical Collection Method Collection Time Receive d Time (Source) Location / / Volume Laterality Blood (Blood, 03/15/2021 2:29 PM 03/15/20 2:43 Venous) VENDOR QUALITY SUPERVISOR PM VENDOR QUALITY SUPERVISOR Lizet Navarro M.D. LAB BLOOD ADD-ON Performing Organization Address City/State/ZIP Code Phon e Number [facility]- [facility] [place] [address] [place] [address] System in [place] [address] [facility] (ABNORMAL) Basic Metabolic Panel (03/15/2021 2:29 PM VENDOR QUALITY SUPERVISOR) Analysis Performed At Patho logist Time Signature Potassium, P 3.2 (L) 3.6 - 5.2 03/15/2021 [place] mmol/L 3:18 PM VENDOR QUALITY SUPERVISOR Sodium, P 138 135 - 145 03/15/2021 [facility] mmol/L 3:18 PM VENDOR QUALITY SUPERVISOR Chloride, P 105 98 - 107 03/15/2021 [facility] mmol/L 3:18 PM VENDOR QUALITY SUPERVISOR Bicarbonate, P 19 (L) 22 - 29 03/15/2021 [facility] mmol/L 3:18 PM VENDOR QUALITY SUPERVISOR Anion Gap, P 14 7 - 15 03/15/2021 [facility] 3:18 PM VENDOR QUALITY SUPERVISOR BUN (Blood Urea 8 6 - 21 03/15/2021 [facility] Nitrogen), P mg/dL 3:18 PM VENDOR QUALITY SUPERVISOR Creatinine 0.49 (L) 0.59 - 03/15/2021 [facility] 1.04 mg/dL 3:18 PM VENDOR QUALITY SUPERVISOR eGFR-Black/Afri >90 >=60 03/15/2021 [facility] can [place] mL/min/BSA 3:18 PM VENDOR QUALITY SUPERVISOR Comment: ----ADDITIONAL INFORMATION---- Estimated GFR calculated using the 2009 CKD_EPI creatinine equation. eGFR Non-Black/ >90 >=60 mL/min/BSA 03/15/2021 3:18 PM VENDOR QUALITY SUPERVISOR [facility] Comment: ----ADDITIONAL INFORMATION---- Estimated GFR calculated using the 2009 CKD_EPI creatinine equation. Calcium, Total, P 9.0 8.6 - 10.0 mg/dL 03/15/2021 3:18 PM VENDOR QUALITY SUPERVISOR [facility] Glucose, P 125 70 - 140 mg/dL 03/15/2021 3:18 PM VENDOR QUALITY SUPERVISOR M K[facility] Specimen Anatomical Collection Method Collection Time Receive d Time (Source) Location / / Volume Laterality Blood (Blood, 03/15/2021 2:29 PM 03/15/20 2:43 Venous) VENDOR QUALITY SUPERVISOR PM VENDOR QUALITY SUPERVISOR Lizet Navarro M.D. LAB BLOOD ADD-ON Performing Organization Address City/State/ZIP Code Phon e Number [facility]- [address] [place] [address] [place] [address] [address] Transfuse Red Blood Cells : (03/15/2021 1:16 PM VENDOR QUALITY SUPERVISOR) Josep Jennings M.D. BLOOD TRANSFUSION ORDERABLES Transfuse Red Blood Cells : , 1 Units (03/15/2021 1:16 PM VENDOR QUALITY SUPERVISOR) Josep Jennings M.D. BLOOD TRANSFUSION ORDERABLES Glucose, POCT (03/15/2021 11:57 AM VENDOR QUALITY SUPERVISOR) P athologist Signature Glucose, POCT, 119 70 - 140 03/15/2021 [facility] B mg/dL 11:57 AM VENDOR QUALITY SUPERVISOR Specimen Anatomical Collection Method Collection Time Receive d Time (Source) Location / / Volume Laterality Blood 03/15/2021 11:57 03/15/2021 AM VENDOR QUALITY SUPERVISOR 12:08 PM VENDOR QUALITY SUPERVISOR Generic [facility] POCT ORDERABLES-MANUAL Performing Organization Address City/[facility]/ZIP [facility] Phon e Number [facility]- [address] [place] [address] [place] [address] System in [address] Glucose, POCT (03/15/2021 6:14 AM VENDOR QUALITY SUPERVISOR) P athologist Signature Glucose, POCT, 116 70 - 140 03/15/2021 [facility] B mg/dL 6:14 AM VENDOR QUALITY SUPERVISOR Specimen Anatomical Collection Method Collection Time Receive d Time (Source) Location / / Volume Laterality Blood 03/15/2021 6:14 AM VENDOR QUALITY SUPERVISOR 10:34 AM VENDOR QUALITY SUPERVISOR Generic [facility] POCT ORDERABLES-MANUAL Performing Organization Address City/[facility] Phon e Number [facility]- [address] [place] [address] [facility] [place] [address] System [address] Magnesium (03/15/2021 4:18 AM VENDOR QUALITY SUPERVISOR) P athologist Signature Magnesium, P 1.7 1.7 - 2.3 03/15/2021 [place] mg/dL 5:00 AM VENDOR QUALITY SUPERVISOR Specimen Anatomical Collection Method Collection Time Receive d Time (Source) Location / / Volume Laterality Blood (Blood, 03/15/2021 4:18 AM 03/15/20 4:35 Venous) VENDOR QUALITY SUPERVISOR AM VENDOR QUALITY SUPERVISOR Katrin Thomas APRN.N.Shanita., M.S.N. LAB BLOOD ADD-O N Performing Organization Address [facility] Phon e Number [address] [address] [place] [address] [address] (ABNORMAL) Phosphorus Inorganic (03/15/2021 4:18 AM VENDOR QUALITY SUPERVISOR) P athologist Signature Phosphorus 2.1 (L) 2.5 - 4.5 03/15/2021 [facility] (Inorganic), P mg/dL 5:00 AM VENDOR QUALITY SUPERVISOR Specimen Anatomical Collection Method Collection Time Receive d Time (Source) Location / / Volume Laterality Blood (Blood, 03/15/2021 4:18 AM 03/15/20 4:35 Venous) VENDOR QUALITY SUPERVISOR AM VENDOR QUALITY SUPERVISOR Katrin Thomas APRN.N.P., M.S.N. LAB BLOOD ADD-O N Performing Organization Address [facility] Phon e Number [address] [address] [place] [address] System in [address] (ABNORMAL) Prothrombin Time (PT) (03/15/2021 4:18 AM VENDOR QUALITY SUPERVISOR) Patholo gist Method Time Signature Prothrombin 26.3 (H) 9.4 - 12.5 03/15/2021 [facility] Time, P sec 4:58 AM VENDOR QUALITY SUPERVISOR INR 2.3 0.9 - 1.1 03/15/2021 [facility] 4:58 AM VENDOR QUALITY SUPERVISOR Comment: ----ADDITIONAL INFORMATION---- Standard intensity warfarin therapeutic range: 2.0 to 3.0 ?? High intensity warfarin therapeutic rang e: 2.5 to 3.5 Specimen Anatomical Collection Method Collection Time Receive d Time (Source) Location / / Volume Laterality Blood (Blood, 03/15/2021 4:18 AM 03/15/20 4:35 Venous) VENDOR QUALITY SUPERVISOR AM VENDOR QUALITY SUPERVISOR Nola Huitron APRN, C.N.P., M.S.N. LAB BLOOD ADD-O N Performing Organization Address City/State/ZIP Code Phon e Number [facility]- [facility] [place] [address] [place] [address] System in [place] [address] [facility] (ABNORMAL) Comprehensive Metabolic Panel (03/15/2021 4:18 AM VENDOR QUALITY SUPERVISOR) Analysis Performed At Patho logist Time Signature Potassium, P 2.7 (L) 3.6 - 5.2 03/15/2021 [place] mmol/L 5:00 AM VENDOR QUALITY SUPERVISOR Sodium, P 140 135 - 145 03/15/2021 [place] mmol/L 5:00 AM VENDOR QUALITY SUPERVISOR Chloride, P 107 98 - 107 03/15/2021 [place] mmol/L 5:00 AM VENDOR QUALITY SUPERVISOR Bicarbonate, P 20 (L) 22 - 29 03/15/2021 [facility] mmol/L 5:00 AM VENDOR QUALITY SUPERVISOR Anion Gap, P 13 7 - 15 03/15/2021 [facility] 5:00 AM VENDOR QUALITY SUPERVISOR BUN (Blood Urea 11 6 - 21 03/15/2021 [place] Nitrogen), P mg/dL 5:00 AM VENDOR QUALITY SUPERVISOR Creatinine 0.55 (L) 0.59 - 03/15/2021 [facility] 1.04 mg/dL 5:00 AM VENDOR QUALITY SUPERVISOR eGFR-Black/Afri >90 >=60 03/15/2021 [facility] can [place] mL/min/BSA 5:00 AM VENDOR QUALITY SUPERVISOR Comment: ----ADDITIONAL INFORMATION---- Estimated GFR calculated using the 2009 CKD_EPI creatinine equation. eGFR Non-Black/ >90 >=60 mL/min/BSA 03/15/2021 5:00 AM VENDOR QUALITY SUPERVISOR [facility] Comment: ----ADDITIONAL INFORMATION---- Estimated GFR calculated using the 2009 CKD_EPI creatinine equation. Calcium, Total, P 9.1 8.6 - 10.0 mg/dL 03/15/2021 5:00 AM VENDOR QUALITY SUPERVISOR [place] Glucose, P 127 70 - 140 mg/dL 03/15/2021 5:00 AM VENDOR QUALITY SUPERVISOR M K[facility] Protein, Total, P 5.7 (L) 6.3 - 7.9 g/dL 03/15/2021 5:00 A M VENDOR QUALITY SUPERVISOR [place] Albumin, P 4.3 3.5 - 5.0 g/dL 03/15/2021 5:00 AM VENDOR QUALITY SUPERVISOR M K[facility] Aspartate Aminotransferase 38 8 - 43 U/L 03/15/2021 5 :00 AM VENDOR QUALITY SUPERVISOR [place] (AST), P Alkaline Phosphatase, P 50 35 - 104 U/L 03/15/2021 5: 00 AM VENDOR QUALITY SUPERVISOR [place] Alanine Aminotransferase 9 7 - 45 U/L 03/15/2021 5:0 0 AM VENDOR QUALITY SUPERVISOR [place] (ALT), P Bilirubin, Total, P 5.6 (H) <=1.2 mg/dL 03/15/2021 5:00 AM VENDOR QUALITY SUPERVISOR [facility] Specimen Anatomical Collection Method Collection Time Receive d Time (Source) Location / / Volume Laterality Blood (Blood, 03/15/2021 4:18 AM 03/15/20 4:35 Venous) VENDOR QUALITY SUPERVISOR AM VENDOR QUALITY SUPERVISOR Nola Huitron APRN C.N.P., M.S.N. LAB BLOOD ADD-O N Performing Organization Address City/State/ZIP Code Phon e Number [facility]- [address] [place] [address] [place] [address] System in [address] (ABNORMAL) CBC without Differential (03/15/2021 4:18 AM VENDOR QUALITY SUPERVISOR) [facility] gist Method Time Signature Hemoglobin 6.9 (L) 11.6 - 03/15/2021 [place] 15.0 g/dL 5:00 AM VENDOR QUALITY SUPERVISOR Hematocrit 20.5 (L) 35.5 - 03/15/2021 [place] 44.9 % 5:00 AM VENDOR QUALITY SUPERVISOR Erythrocytes 2.11 (L) 3.92 - 03/15/2021 [place] 5.13 5:00 AM VENDOR QUALITY SUPERVISOR x10(12)/L MCV 97.2 78.2 - 03/15/2021 [place] 97.9 fL 5:00 AM VENDOR QUALITY SUPERVISOR RBC Distrib Width 22.5 (H) 12.2 - 03/15/2021 [place] 16.1 % 5:00 AM VENDOR QUALITY SUPERVISOR Platelet Count 86 (L) 157 - 371 03/15/2021 [place] x10(9)/L 5:00 AM VENDOR QUALITY SUPERVISOR Leukocytes 6.3 3.4 - 9.6 03/15/2021 [facility] x10(9)/L 5:00 AM VENDOR QUALITY SUPERVISOR Specimen Anatomical Collection Method Collection Time Receive d Time (Source) Location / / Volume Laterality Blood (Blood, 03/15/2021 4:18 AM 03/15/20 4:35 Venous) VENDOR QUALITY SUPERVISOR AM VENDOR QUALITY SUPERVISOR Nola Huitron APRN C.NLala., M.S.N. LAB BLOOD ADD-O N Performing Organization Address City/[facility]/ZIP [facility] Phon e Number [facility]- [address] [place] [phone] [place] [facility] [place] [id number] System [address] Glucose, POCT (03/14/2021 11:43 PM VENDOR QUALITY SUPERVISOR) athologist Signature Glucose, POCT, 122 70 - 140 03/14/2021 [place] B mg/dL 11:43 PM VENDOR QUALITY SUPERVISOR Specimen Anatomical Collection Method Collection Time Receive d Time (Source) Location / / Volume Laterality Blood 03/14/2021 11:43 03/15/2021 PM VENDOR QUALITY SUPERVISOR 12:29 AM VENDOR QUALITY SUPERVISOR Generic [facility] POCT ORDERABLES-MANUAL Performing Organization Address [facility] Phon e Number [address] [address] [place] [address] Glucose, POCT (03/14/2021 6:25 PM VENDOR QUALITY SUPERVISOR) athologist Signature Glucose, POCT, 140 70 - 140 03/14/2021 [place] B mg/dL 6:25 PM VENDOR QUALITY SUPERVISOR Specimen Anatomical Collection Method Collection Time Receive d Time (Source) Location / / Volume Laterality Blood 03/14/2021 6:25 PM 7:32 VENDOR QUALITY SUPERVISOR PM VENDOR QUALITY SUPERVISOR Generic [facility] POCT ORDERABLES-MANUAL Performing Organization Address City/[facility]/ZIP [facility] Phon e Number [address] [address] [place] [address] Glucose, POCT (03/14/2021 11:32 AM VENDOR QUALITY SUPERVISOR) athologist Signature Glucose, POCT, 120 70 - 140 03/14/2021 [place] B mg/dL 11:32 AM VENDOR QUALITY SUPERVISOR Specimen Anatomical Collection Method Collection Time Receive d Time (Source) Location / / Volume Laterality Blood 03/14/2021 11:32 03/14/2021 2:20 AM VENDOR QUALITY SUPERVISOR PM VENDOR QUALITY SUPERVISOR Generic [facility] POCT ORDERABLES-MANUAL Performing Organization Address City/[facility] Phon e Number [address] [address] [place] [address] System in [address] Patient Status (03/14/2021 11:00 AM VENDOR QUALITY SUPERVISOR) athologist Signature FIO2 0.30 0.21=AIR 03/14/2021 11:19 [place] AM VENDOR QUALITY SUPERVISOR Specimen Anatomical Collection Method Collection Time Receive d Time (Source) Location / / Volume Laterality Blood 03/14/2021 11:00 03/14/2021 AM VENDOR QUALITY SUPERVISOR 11:14 AM VENDOR QUALITY SUPERVISOR Lizet Navarro M.D. LAB BLOOD NON ADD-ON Performing Organization Address City/[facility] Phon e Number [address] [address] [place] [address] System in [address] (ABNORMAL) Blood Gas with Coox, Arterial (03/14/2021 11:00 AM VENDOR QUALITY SUPERVISOR) Patholo gist Method Time Signature P O2 120 (H) 83 - 108 03/14/2021 [place] mm Hg 11:19 AM VENDOR QUALITY SUPERVISOR P CO2 33 32 - 45 03/14/2021 [place] mm Hg 11:19 AM VENDOR QUALITY SUPERVISOR pH 7.42 7.35 - 03/14/2021 [place] 7.45 pH 11:19 AM VENDOR QUALITY SUPERVISOR Base Excess -3 (L) -2 - 3 03/14/2021 [place] mmol/L 11:19 AM VENDOR QUALITY SUPERVISOR HCO3 21 (L) 22 - 26 03/14/2021 [place] mmol/L 11:19 AM VENDOR QUALITY SUPERVISOR Hemoglobin, B 7.8 (L) 11.6 - 03/14/2021 [place] 15.0 g/dL 11:19 AM VENDOR QUALITY SUPERVISOR O2Hb 96.7 94.0 - 03/14/2021 [place] 98.0 % 11:19 AM VENDOR QUALITY SUPERVISOR COHb 1.4 <3.0 % 03/14/2021 [place] 11:19 AM VENDOR QUALITY SUPERVISOR MetHb 0.7 <1.5 % 03/14/2021 [place] 11:19 AM VENDOR QUALITY SUPERVISOR CtO2 10.8 (L) 18.0 - 03/14/2021 [place] 21.0 vol 11:19 AM VENDOR QUALITY SUPERVISOR % Arterial Arterial 03/14/2021 [place] Sample Site Line 11:19 AM VENDOR QUALITY SUPERVISOR Specimen Anatomical Collection Method Collection Time Receive d Time (Source) Location / / Volume Laterality Blood (Blood, 03/14/2021 11:00 03/14/2021 Arterial) AM VENDOR QUALITY SUPERVISOR 11:14 AM VENDOR QUALITY SUPERVISOR Lizet Navarro M.D. LAB BLOOD NON ADD-ON Performing Organization Address City/[facility] Phon e Number [facility]- [address] [place] [address] [place] [address] System in [place] [address] [place] [address] (ABNORMAL) Prothrombin Time (PT) (03/14/2021 9:22 AM VENDOR QUALITY SUPERVISOR) [facility] Method Time Signature Prothrombin 28.5 (H) 9.4 - 12.5 03/14/2021 [place] Time, P sec 10:13 AM VENDOR QUALITY SUPERVISOR INR 2.5 0.9 - 1.1 03/14/2021 [place] 10:13 AM VENDOR QUALITY SUPERVISOR Comment: ----ADDITIONAL INFORMATION---- Standard intensity warfarin therapeutic range: 2.0 to 3.0 ?? High intensity warfarin therapeutic rang e: 2.5 to 3.5 Specimen Anatomical Collection Method Collection Time Receive d Time (Source) Location / / Volume Laterality Blood (Blood, 03/14/2021 9:22 AM 03/14/20 9:26 Venous) VENDOR QUALITY SUPERVISOR AM VENDOR QUALITY SUPERVISOR Kerry Naranjo APRN, C.N.P., M.S.N. LAB BLOOD ADD-ON Performing Organization Address City/State/ZIP Code Phon e Number [facility]- [address] [place] [id number] [place] [address] System in [address] Glucose, POCT (03/14/2021 6:28 AM VENDOR QUALITY SUPERVISOR) P athologist Signature Glucose, POCT, 109 70 - 140 03/14/2021 [place] B mg/dL 6:28 AM VENDOR QUALITY SUPERVISOR Specimen Anatomical Collection Method Collection Time Receive d Time (Source) Location / / Volume Laterality Blood 03/14/2021 6:28 AM 1 6:51 VENDOR QUALITY SUPERVISOR AM VENDOR QUALITY SUPERVISOR Generic [facility] POCT ORDERABLES-MANUAL Performing Organization Address City/[facility] Phon e Number [facility]- [address] [place] [address] [facility] [place] [address] (ABNORMAL) pH (03/14/2021 5:41 AM VENDOR QUALITY SUPERVISOR) athologist Signature pH 7.48 (H) 7.35 - 7.45 03/14/2021 [place] pH 5:51 AM VENDOR QUALITY SUPERVISOR Specimen Anatomical Collection Method Collection Time Receive d Time (Source) Location / / Volume Laterality Blood 03/14/2021 5:41 AM 1 5:48 VENDOR QUALITY SUPERVISOR AM VENDOR QUALITY SUPERVISOR Lowell Thomas APRNN.Shanita., M.S.N. LAB HISTORICAL ORDERS Performing Organization Address City/[facility] Phon e Number [facility]- [address] [place] [address] [place] [address] System in [address] (ABNORMAL) Calcium, Ionized (03/14/2021 5:41 AM VENDOR QUALITY SUPERVISOR) athologist Signature Calcium, 4.61 (L) 4.65 - 03/14/2021 [place] Ionized, B 5.30 mg/dL 5:51 AM VENDOR QUALITY SUPERVISOR Specimen Anatomical Collection Method Collection Time Receive d Time (Source) Location / / Volume Laterality Blood 03/14/2021 5:41 AM 1 5:48 VENDOR QUALITY SUPERVISOR AM VENDOR QUALITY SUPERVISOR Katrin Thomas APRN.N.Shanita., M.S.N. LAB BLOOD NON A DD-ON Performing Organization Address City/[facility]/ZIP Code Phon e Number [facility]- [facility] [place] [address] [facility] [place] [address] [facility] [address] [place] [address] Patient Status (03/14/2021 5:41 AM VENDOR QUALITY SUPERVISOR) P athologist Signature FIO2 0.30 0.21=AIR 03/14/2021 5:51 [place] AM VENDOR QUALITY SUPERVISOR Specimen Anatomical Collection Method Collection Time Receive d Time (Source) Location / / Volume Laterality Blood 03/14/2021 5:41 AM 5:48 VENDOR QUALITY SUPERVISOR AM VENDOR QUALITY SUPERVISOR Nola Huitron APRN, C.N.P., M.S.N. LAB BLOOD NON A DD-ON Performing Organization Address City/[facility] Phon e Number [facility]- [facility] [place] [address] [facility] [place] [address] Phosphorus Inorganic (03/14/2021 5:41 AM VENDOR QUALITY SUPERVISOR) P athologist Signature Phosphorus 2.8 2.5 - 4.5 03/14/2021 [place] (Inorganic), P mg/dL 6:11 AM VENDOR QUALITY SUPERVISOR Specimen Anatomical Collection Method Collection Time Receive d Time (Source) Location / / Volume Laterality Blood (Blood, 03/14/2021 5:41 AM 03/14/20 5:48 Venous) VENDOR QUALITY SUPERVISOR AM VENDOR QUALITY SUPERVISOR Katrin Thomas APRN.N.P., M.S.N. LAB BLOOD ADD-O N Performing Organization Address City/[facility] Phon e Number [facility]- [facility] [place] [address] [facility] [place] [address] Magnesium (03/14/2021 5:41 AM VENDOR QUALITY SUPERVISOR) P athologist Signature Magnesium, P 2.3 1.7 - 2.3 03/14/2021 [place] mg/dL 6:11 AM VENDOR QUALITY SUPERVISOR Specimen Anatomical Collection Method Collection Time Receive d Time (Source) Location / / Volume Laterality Blood (Blood, 03/14/2021 5:41 AM 03/14/20 5:48 Venous) VENDOR QUALITY SUPERVISOR AM VENDOR QUALITY SUPERVISOR Nola Huitron APRN, C.N.P., M.S.N. LAB BLOOD ADD-O N Performing Organization Address City/State/ZIP Code Phon e Number [facility]- [address] [place] [phone] [place] [address] System in [place] [address] [place] [address] (ABNORMAL) Blood Gas with Coox, Arterial (03/14/2021 5:41 AM VENDOR QUALITY SUPERVISOR) P athologist Signature P O2 146 (H) 83 - 108 03/14/2021 [place] mm Hg 5:51 AM VENDOR QUALITY SUPERVISOR P CO2 32 32 - 45 mm 03/14/2021 [place] Hg 5:51 AM VENDOR QUALITY SUPERVISOR pH 7.43 7.35 - 03/14/2021 [place] 7.45 pH 5:51 AM VENDOR QUALITY SUPERVISOR Base Excess -2 -2 - 3 03/14/2021 [place] mmol/L 5:51 AM VENDOR QUALITY SUPERVISOR HCO3 21 (L) 22 - 26 03/14/2021 [place] mmol/L 5:51 AM VENDOR QUALITY SUPERVISOR Hemoglobin, B 8.0 (L) 11.6 - 03/14/2021 [place] 15.0 g/dL 5:51 AM VENDOR QUALITY SUPERVISOR O2Hb 97.5 94.0 - 03/14/2021 [place] 98.0 % 5:51 AM VENDOR QUALITY SUPERVISOR COHb 1.7 <3.0 % 03/14/2021 [place] 5:51 AM VENDOR QUALITY SUPERVISOR MetHb 0.1 <1.5 % 03/14/2021 [place] 5:51 AM VENDOR QUALITY SUPERVISOR CtO2 11.3 (L) 18.0 - 03/14/2021 [place] 21.0 vol % 5:51 AM VENDOR QUALITY SUPERVISOR Arterial Art Line 03/14/2021 [place] Sample Site 5:51 AM VENDOR QUALITY SUPERVISOR Specimen Anatomical Collection Method Collection Time Receive d Time (Source) Location / / Volume Laterality Blood (Blood, 03/14/2021 5:41 AM 03/14/20 5:48 Arterial) VENDOR QUALITY SUPERVISOR AM VENDOR QUALITY SUPERVISOR Nola Huitron APRN, C.N.P., M.S.N. LAB BLOOD NON A DD-ON Performing Organization Address City/State/ZIP Code Phon e Number [facility]- [facility] [place] [address] [place] [address] System in [place] [address] [facility] (ABNORMAL) Basic Metabolic Panel (03/14/2021 5:41 AM VENDOR QUALITY SUPERVISOR) P athologist Signature Potassium, P 3.2 (L) 3.6 - 5.2 03/14/2021 [place] mmol/L 6:11 AM VENDOR QUALITY SUPERVISOR Sodium, P 135 135 - 145 03/14/2021 [place] mmol/L 6:11 AM VENDOR QUALITY SUPERVISOR Chloride, P 103 98 - 107 03/14/2021 [place] mmol/L 6:11 AM VENDOR QUALITY SUPERVISOR Bicarbonate, P 19 (L) 22 - 29 03/14/2021 [place] mmol/L 6:11 AM VENDOR QUALITY SUPERVISOR Anion Gap, P 13 7 - 15 03/14/2021 [place] 6:11 AM VENDOR QUALITY SUPERVISOR BUN (Blood Urea 11 6 - 21 03/14/2021 [place] Nitrogen), P mg/dL 6:11 AM VENDOR QUALITY SUPERVISOR Creatinine 0.60 0.59 - 03/14/2021 [place] 1.04 mg/dL 6:11 AM VENDOR QUALITY SUPERVISOR eGFR-Black/Afri >90 >=60 03/14/2021 [place] can [place]at[place] mL/min/BSA 6:11 AM VENDOR QUALITY SUPERVISOR Comment: ----ADDITIONAL INFORMATION---- Estimated GFR calculated using the 2009 CKD_EPI creatinine equation. eGFR Non-Black/ >90 >=60 mL/min/BSA 03/14/2021 6:11 AM VENDOR QUALITY SUPERVISOR [place] Comment: ----ADDITIONAL INFORMATION---- Estimated GFR calculated using the 2009 CKD_EPI creatinine equation. Calcium, Total, P 8.9 8.6 - 10.0 mg/dL 03/14/2021 6:11 AM VENDOR QUALITY SUPERVISOR [place] Glucose, P 124 70 - 140 mg/dL 03/14/2021 6:11 AM VENDOR QUALITY SUPERVISOR M [place] Specimen Anatomical Collection Method Collection Time Receive d Time (Source) Location / / Volume Laterality Blood (Blood, 03/14/2021 5:41 AM 03/14/20 5:48 Venous) VENDOR QUALITY SUPERVISOR AM VENDOR QUALITY SUPERVISOR Nola Huitron APRN, C.N.P., M.S.N. LAB BLOOD ADD-O N Performing Organization Address [facility] Phon e Number [facility]- [address] [place] [phone] [place] [address] [address] (ABNORMAL) CBC without Differential (03/14/2021 5:41 AM VENDOR QUALITY SUPERVISOR) [facility] gist Method Time Signature Hemoglobin 7.9 (L) 11.6 - 03/14/2021 [place] 15.0 g/dL 6:11 AM VENDOR QUALITY SUPERVISOR Hematocrit 23.2 (L) 35.5 - 03/14/2021 [place] 44.9 % 6:11 AM VENDOR QUALITY SUPERVISOR Erythrocytes 2.40 (L) 3.92 - 03/14/2021 [place] 5.13 6:11 AM VENDOR QUALITY SUPERVISOR x10(12)/L MCV 96.7 78.2 - 03/14/2021 [place] 97.9 fL 6:11 AM VENDOR QUALITY SUPERVISOR RBC Distrib Width 22.8 (H) 12.2 - 03/14/2021 [place] 16.1 % 6:11 AM VENDOR QUALITY SUPERVISOR Platelet Count 90 (L) 157 - 371 03/14/2021 [place] x10(9)/L 6:11 AM VENDOR QUALITY SUPERVISOR Leukocytes 6.6 3.4 - 9.6 03/14/2021 [place] x10(9)/L 6:11 AM VENDOR QUALITY SUPERVISOR Specimen Anatomical Collection Method Collection Time Receive d Time (Source) Location / / Volume Laterality Blood (Blood, 03/14/2021 5:41 AM 03/14/20 5:48 Venous) VENDOR QUALITY SUPERVISOR AM VENDOR QUALITY SUPERVISOR Florence Thomas APRN.Shanita., M.S.N. LAB BLOOD ADD-O N Performing Organization Address City/[facility] Phon e Number [facility]- [address] [place] [phone] [place] [address] (ABNORMAL) Hepatic Function Panel (03/14/2021 5:40 AM VENDOR QUALITY SUPERVISOR) [facility] Method Time Signature Bilirubin, Total, P 6.0 (H) <=1.2 03/14/2021 [place] mg/dL 10:49 AM VENDOR QUALITY SUPERVISOR Bilirubin, Direct, P 2.5 (H) 0.0 - 0.3 03/14/2021 [place] mg/dL 10:49 AM VENDOR QUALITY SUPERVISOR Aspartate 48 (H) 8 - 43 03/14/2021 [place] Aminotransferase U/L 10:49 AM VENDOR QUALITY SUPERVISOR (AST), P Alanine 10 7 - 45 03/14/2021 [place] Aminotransferase U/L 10:49 AM VENDOR QUALITY SUPERVISOR (ALT), P Alkaline 64 35 - 104 03/14/2021 [place] Phosphatase, P U/L 10:49 AM VENDOR QUALITY SUPERVISOR Albumin, P 4.3 3.5 - 5.0 03/14/2021 [place] g/dL 10:49 AM VENDOR QUALITY SUPERVISOR Protein, Total, P 5.7 (L) 6.3 - 7.9 03/14/2021 [place] g/dL 10:49 AM VENDOR QUALITY SUPERVISOR Specimen Anatomical Collection Method Collection Time Receive d Time (Source) Location / / Volume Laterality Blood (Blood, 03/14/2021 5:40 AM 03/14/20 21 Venous) VENDOR QUALITY SUPERVISOR 10:24 AM VENDOR QUALITY SUPERVISOR Leslie Kwong M.D. LAB BLOOD ADD-ON Performing Organization Address City/State/ZIP Code Phon e Number [facility]- [address] [place] [id number] [place] [address] [place] [address] System [address] DX Chest Portable 1 View (03/14/2021 4:33 AM VENDOR QUALITY SUPERVISOR) Anatomical Region Laterality Modality Chest, Thoracic RST LOS, Thoracic ARZ LOS, Thoracic N/A Digital Radiography FLA LOS Specimen (Source) Anatomical Collection Method Collection Time Re ceived Time Location / / Volume Laterality 03/14/2021 7:56 AM VENDOR QUALITY SUPERVISOR Impressions 03/14/2021 7:58 AM VENDOR QUALITY SUPERVISOR Persistent areas of bibasilar atelectasis or infiltrate more prominent on the right. Narrative 03/14/2021 7:58 AM VENDOR QUALITY SUPERVISOR EXAM: DX CHEST PORTABLE 1 VIEW COMPARISON: [...] infiltrate more prominent on the right. Ivan Lazo D.O. IMG DIAGNOSTIC IMAGING PROCE PERCY Glucose, POCT (03/14/2021 12:06 AM VENDOR QUALITY SUPERVISOR) athologist Signature Glucose, POCT, 116 70 - 140 03/14/2021 [place] B mg/dL 12:06 AM VENDOR QUALITY SUPERVISOR Specimen Anatomical Collection Method Collection Time Receive d Time (Source) Location / / Volume Laterality Blood 03/14/2021 12:06 03/14/2021 AM VENDOR QUALITY SUPERVISOR 12:23 AM VENDOR QUALITY SUPERVISOR Generic Rals LAB POCT ORDERABLES-MANUAL Performing Organization Address City/[facility] Phon e Number [facility]- [address] [place] [phone] [place] [address] (ABNORMAL) Hemoglobin (03/13/2021 6:29 PM VENDOR QUALITY SUPERVISOR) athologist Signature Hemoglobin 8.0 (L) 11.6 - 15.0 03/13/2021 [place] g/dL 6:45 PM VENDOR QUALITY SUPERVISOR Specimen Anatomical Collection Method Collection Time Receive d Time (Source) Location / / Volume Laterality Blood (Blood, 03/13/2021 6:29 PM 03/13/20 6:40 Venous) VENDOR QUALITY SUPERVISOR PM VENDOR QUALITY SUPERVISOR Tariq Santillan LAB BLOOD ADD-ON Performing Organization Address City/[facility]/ZIP Code Phon e Number [facility]- [address] [place] [phone] [place] [address] System in [address] Glucose, POCT (03/13/2021 6:16 PM VENDOR QUALITY SUPERVISOR) P athologist Signature Glucose, POCT, 112 70 - 140 03/13/2021 [place] B mg/dL 6:16 PM VENDOR QUALITY SUPERVISOR Specimen Anatomical Collection Method Collection Time Receive d Time (Source) Location / / Volume Laterality Blood 03/13/2021 6:16 PM VENDOR QUALITY SUPERVISOR 11:28 PM VENDOR QUALITY SUPERVISOR Generic Rals LAB POCT ORDERABLES-MANUAL Performing Organization Address City/[facility] Phon e Number [facility]- [address] [place] [phone] [place] [address] System in [address] (ABNORMAL) Hemoglobin (03/13/2021 4:28 PM VENDOR QUALITY SUPERVISOR) athologist Signature Hemoglobin 8.0 (L) 11.6 - 15.0 03/13/2021 [place] g/dL 4:39 PM VENDOR QUALITY SUPERVISOR Specimen Anatomical Collection Method Collection Time Receive d Time (Source) Location / / Volume Laterality Blood (Blood, 03/13/2021 4:28 PM 03/13/20 4:35 Arterial) VENDOR QUALITY SUPERVISOR PM VENDOR QUALITY SUPERVISOR Tariq CheryB.S. LAB BLOOD ADD-ON Performing Organization Address City/[facility] Phon e Number [facility]- [address] [place] [phone] [place] [address] [address] Transfuse Red Blood Cells : (03/13/2021 12:13 PM VENDOR QUALITY SUPERVISOR) Traiq Novak.B.S. BLOOD TRANSFUSION ORDERABLES Transfuse Red Blood Cells : , 1 Units (03/13/2021 12:13 PM VENDOR QUALITY SUPERVISOR) Tariq Novak.B.S. BLOOD TRANSFUSION ORDERABLES Glucose, POCT (03/13/2021 11:46 AM VENDOR QUALITY SUPERVISOR) P athologist Signature Glucose, POCT, 130 70 - 140 03/13/2021 [place] B mg/dL 11:46 AM VENDOR QUALITY SUPERVISOR Specimen Anatomical Collection Method Collection Time Receive d Time (Source) Location / / Volume Laterality Blood 03/13/2021 11:46 03/13/2021 AM VENDOR QUALITY SUPERVISOR 11:54 AM VENDOR QUALITY SUPERVISOR Generic Rals LAB POCT ORDERABLES-MANUAL Performing Organization Address City/[facility]/ZIP [facility] Phon e Number [facility]- [facility] [place] [address] [facility] [place] [address] [address] [place] [address] (ABNORMAL) Ferritin (03/13/2021 8:28 AM VENDOR QUALITY SUPERVISOR) P athologist Signature Ferritin, S 801 (H) 6 - 175 03/13/2021 [place] mcg/L 10:15 AM VENDOR QUALITY SUPERVISOR Comment: Biotin has been identified by the [...] Laterality Blood (Blood, 03/13/2021 8:28 AM 03/13/20 21 8:32 Venous) VENDOR QUALITY SUPERVISOR AM VENDOR QUALITY SUPERVISOR Tariq Santillan LAB BLOOD ADD-ON Performing Organization Address City/[facility] Phon e Number [facility]- [address] [place] [phone] [facility] [place] [address] System [address] (ABNORMAL) Folate (03/13/2021 8:28 AM VENDOR QUALITY SUPERVISOR) P athologist Signature Folate, S 2.8 (L) >=4.0 mcg/L 03/13/2021 [place] 2:38 PM VENDOR QUALITY SUPERVISOR Comment: Biotin has been identified by the [...] (Blood, 03/13/2021 8:28 AM 03/13/20 8:32 Venous) VENDOR QUALITY SUPERVISOR AM VENDOR QUALITY SUPERVISOR Tariq DanielSSuma LAB BLOOD ADD-ON Performing Organization Address City/[facility]/ZIP [facility] Phon e Number [facility]- [address] [place] [phone] [place] [address] System in [address] Vitamin B12 Assay (03/13/2021 8:28 AM VENDOR QUALITY SUPERVISOR) P athologist Signature Vitamin B12 690 232 - 1245 03/13/2021 [place] Assay, S ng/L 4:13 PM VENDOR QUALITY SUPERVISOR Comment: Biotin has been identified by the [...] (Blood, 03/13/2021 8:28 AM 03/13/20 8:32 Venous) VENDOR QUALITY SUPERVISOR AM VENDOR QUALITY SUPERVISOR Tariq DanielSSuma LAB BLOOD ADD-ON Performing Organization Address City/[facility] Phon e Number [facility]- [address] [place] [phone] [place] [address] System in [address] (ABNORMAL) Iron and Total Iron-Binding Capacity (03/13/2021 8:28 AM VENDOR QUALITY SUPERVISOR) P athologist Signature Iron 77 35 - 145 03/13/2021 [place] mcg/dL 10:15 AM VENDOR QUALITY SUPERVISOR Total Iron 68 (L) 250 - 400 03/13/2021 [place] Binding mcg/dL 10:15 AM VENDOR QUALITY SUPERVISOR Capacity Percent >90 (H) 14 - 50 % 03/13/2021 [place] Saturation 10:15 AM VENDOR QUALITY SUPERVISOR Specimen Anatomical Collection Method Collection Time Receive d Time (Source) Location / / Volume Laterality Blood (Blood, 03/13/2021 8:28 AM 03/13/20 8:32 Venous) VENDOR QUALITY SUPERVISOR AM VENDOR QUALITY SUPERVISOR Tariq Santillan LAB BLOOD ADD-ON Performing Organization Address City/State/ZIP Code Phon e Number [facility]- [facility] [place] [address] [place] [address] System in [address] Patient Status (03/13/2021 5:37 AM VENDOR QUALITY SUPERVISOR) P athologist Signature FIO2 0.30 0.21=AIR 03/13/2021 5:56 [place] AM VENDOR QUALITY SUPERVISOR Specimen Anatomical Collection Method Collection Time Receive d Time (Source) Location / / Volume Laterality Blood 03/13/2021 5:37 AM 5:50 VENDOR QUALITY SUPERVISOR AM VENDOR QUALITY SUPERVISOR Ivna Lazo D.O. LAB BLOOD NON ADD-ON Performing Organization Address City/[facility] Phon e Number [facility]- [address] [place] [phone] [place] [address] System in [address] (ABNORMAL) Blood Gas with Coox, Arterial (03/13/2021 5:37 AM VENDOR QUALITY SUPERVISOR) P athologist Signature P O2 141 (H) 83 - 108 03/13/2021 [place] mm Hg 5:56 AM VENDOR QUALITY SUPERVISOR P CO2 30 (L) 32 - 45 mm 03/13/2021 [place] Hg 5:56 AM VENDOR QUALITY SUPERVISOR pH 7.46 (H) 7.35 - 03/13/2021 [place] 7.45 pH 5:56 AM VENDOR QUALITY SUPERVISOR Base Excess -2 -2 - 3 03/13/2021 [place] mmol/L 5:56 AM VENDOR QUALITY SUPERVISOR HCO3 21 (L) 22 - 26 03/13/2021 [place] mmol/L 5:56 AM VENDOR QUALITY SUPERVISOR Hemoglobin, B 7.2 (L) 11.6 - 03/13/2021 [place] 15.0 g/dL 5:56 AM VENDOR QUALITY SUPERVISOR O2Hb 97.9 94.0 - 03/13/2021 [place] 98.0 % 5:56 AM VENDOR QUALITY SUPERVISOR COHb 1.5 <3.0 % 03/13/2021 [place] 5:56 AM VENDOR QUALITY SUPERVISOR MetHb 0.0 <1.5 % 03/13/2021 [place] 5:56 AM VENDOR QUALITY SUPERVISOR CtO2 10.3 (L) 18.0 - 03/13/2021 [place] 21.0 vol % 5:56 AM VENDOR QUALITY SUPERVISOR Arterial Art Line 03/13/2021 [place] Sample Site 5:56 AM VENDOR QUALITY SUPERVISOR Specimen Anatomical Collection Method Collection Time Receive d Time (Source) Location / / Volume Laterality Blood (Blood, 03/13/2021 5:37 AM 03/13/20 5:50 Arterial) VENDOR QUALITY SUPERVISOR AM VENDOR QUALITY SUPERVISOR Ivan Lazo D.O. LAB BLOOD NON ADD-ON Performing Organization Address City/[facility]/ZIP [facility] Phon e Number [facility]- [address] [place] [phone] [place] [address] Phosphorus Inorganic (03/13/2021 5:37 AM VENDOR QUALITY SUPERVISOR) P athologist Signature Phosphorus 3.1 2.5 - 4.5 03/13/2021 [place] (Inorganic), P mg/dL 6:17 AM VENDOR QUALITY SUPERVISOR Specimen Anatomical Collection Method Collection Time Receive d Time (Source) Location / / Volume Laterality Blood (Blood, 03/13/2021 5:37 AM 03/13/20 5:50 Venous) VENDOR QUALITY SUPERVISOR AM VENDOR QUALITY SUPERVISOR Barrera Vargas M.D. LAB BLOOD ADD-ON Performing Organization Address City/[facility]/ZIP Code Phon e Number [facility]- [address] [place] [phone] [place] [address] System in [address] (ABNORMAL) Magnesium (03/13/2021 5:37 AM VENDOR QUALITY SUPERVISOR) P athologist Signature Magnesium, P 2.6 (H) 1.7 - 2.3 03/13/2021 [place] mg/dL 6:17 AM VENDOR QUALITY SUPERVISOR Specimen Anatomical Collection Method Collection Time Receive d Time (Source) Location / / Volume Laterality Blood (Blood, 03/13/2021 5:37 AM 03/13/20 5:50 Venous) VENDOR QUALITY SUPERVISOR AM VENDOR QUALITY SUPERVISOR Barrera Vargas M.D. LAB BLOOD ADD-ON Performing Organization Address City/State/ZIP Code Phon e Number [facility]- [address] [place] [phone] [facility] [place] [address] Triglycerides (03/13/2021 5:37 AM VENDOR QUALITY SUPERVISOR) P athologist Signature Triglycerides 127 mg/dL 03/13/2021 [place] 6:17 AM VENDOR QUALITY SUPERVISOR Comment: ----REFERENCE VALUE---- Normal: <150 Borderline high: 150-199 High: 200-499 Very high: > or =500 Specimen Anatomical Collection Method Collection Time Receive d Time (Source) Location / / Volume Laterality Blood (Blood, 03/13/2021 5:37 AM 03/13/20 5:50 Venous) VENDOR QUALITY SUPERVISOR AM VENDOR QUALITY SUPERVISOR Barrera Vargas M.D. LAB BLOOD ADD-ON Performing Organization Address [facility] Phon e Number [facility]- [address] [place] [phone] [place] [address] (ABNORMAL) Comprehensive Metabolic Panel (03/13/2021 5:37 AM VENDOR QUALITY SUPERVISOR) Analysis Performed At Patho logist Time Signature Potassium, P 3.9 3.6 - 5.2 03/13/2021 [place] mmol/L 6:17 AM VENDOR QUALITY SUPERVISOR Sodium, P 135 135 - 145 03/13/2021 [place] mmol/L 6:17 AM VENDOR QUALITY SUPERVISOR Chloride, P 103 98 - 107 03/13/2021 [place] mmol/L 6:17 AM VENDOR QUALITY SUPERVISOR Bicarbonate, P 20 (L) 22 - 29 03/13/2021 [place] mmol/L 6:17 AM VENDOR QUALITY SUPERVISOR Anion Gap, P 12 7 - 15 03/13/2021 [place] 6:17 AM VENDOR QUALITY SUPERVISOR BUN (Blood Urea 8 6 - 21 03/13/2021 [place] Nitrogen), P mg/dL 6:17 AM VENDOR QUALITY SUPERVISOR Creatinine 0.56 (L) 0.59 - 03/13/2021 [place] 1.04 mg/dL 6:17 AM VENDOR QUALITY SUPERVISOR eGFR-Black/Afri >90 >=60 03/13/2021 [place] can [place] mL/min/BSA 6:17 AM VENDOR QUALITY SUPERVISOR Comment: ----ADDITIONAL INFORMATION---- Estimated GFR calculated using the 2009 CKD_EPI creatinine equation. eGFR Non-Black/ >90 >=60 mL/min/BSA 03/13/2021 6:17 AM VENDOR QUALITY SUPERVISOR [place] Comment: ----ADDITIONAL INFORMATION---- Estimated GFR calculated using the 2009 CKD_EPI creatinine equation. Calcium, Total, P 9.0 8.6 - 10.0 mg/dL 03/13/2021 6:17 AM VENDOR QUALITY SUPERVISOR [place] Glucose, P 115 70 - 140 mg/dL 03/13/2021 6:17 AM VENDOR QUALITY SUPERVISOR M [place] Protein, Total, P 5.7 (L) 6.3 - 7.9 g/dL 03/13/2021 6:17 A M VENDOR QUALITY SUPERVISOR [place] Albumin, P 3.9 3.5 - 5.0 g/dL 03/13/2021 6:17 AM VENDOR QUALITY SUPERVISOR M [place] Aspartate Aminotransferase 64 (H) 8 - 43 U/L 03/13/2021 6 :17 AM VENDOR QUALITY SUPERVISOR [place] (AST), P Alkaline Phosphatase, P 90 35 - 104 U/L 03/13/2021 6: 17 AM VENDOR QUALITY SUPERVISOR [place] Alanine Aminotransferase 14 7 - 45 U/L 03/13/2021 6:1 7 AM VENDOR QUALITY SUPERVISOR [place] (ALT), P Bilirubin, Total, P 6.1 (H) <=1.2 mg/dL 03/13/2021 6:17 AM VENDOR QUALITY SUPERVISOR [place] Specimen Anatomical Collection Method Collection Time Receive d Time (Source) Location / / Volume Laterality Blood (Blood, 03/13/2021 5:37 AM 03/13/20 5:50 Venous) VENDOR QUALITY SUPERVISOR AM VENDOR QUALITY SUPERVISOR Barrera Vargas M.D. LAB BLOOD ADD-ON Performing Organization Address City/State/ZIP Code Phon e Number [facility]- [address] [place] [phone] [place] [address] System in [address] (ABNORMAL) CBC with Differential, Blood (03/13/2021 5:37 AM VENDOR QUALITY SUPERVISOR) [facility] gist Method Time Signature Hemoglobin 7.1 (L) 11.6 - 03/13/2021 [place] 15.0 g/dL 7:27 AM VENDOR QUALITY SUPERVISOR Hematocrit 21.0 (L) 35.5 - 03/13/2021 [place] 44.9 % 7:27 AM VENDOR QUALITY SUPERVISOR Erythrocytes 2.11 (L) 3.92 - 03/13/2021 [place] 5.13 7:27 AM VENDOR QUALITY SUPERVISOR x10(12)/L MCV 99.5 (H) 78.2 - 03/13/2021 [place] 97.9 fL 7:27 AM VENDOR QUALITY SUPERVISOR RBC Distrib Width 20.1 (H) 12.2 - 03/13/2021 [place] 16.1 % 7:27 AM VENDOR QUALITY SUPERVISOR Platelet Count 101 (L) 157 - 371 03/13/2021 [place] x10(9)/L 7:27 AM VENDOR QUALITY SUPERVISOR Leukocytes 8.4 3.4 - 9.6 03/13/2021 [place] x10(9)/L 7:27 AM VENDOR QUALITY SUPERVISOR Neutrophils 6.72 (H) 1.56 - 03/13/2021 [place] 6.45 7:27 AM VENDOR QUALITY SUPERVISOR x10(9)/L Lymphocytes 0.85 (L) 0.95 - 03/13/2021 [place] 3.07 7:27 AM VENDOR QUALITY SUPERVISOR x10(9)/L Monocytes 0.86 (H) 0.26 - 03/13/2021 [place] 0.81 7:27 AM VENDOR QUALITY SUPERVISOR x10(9)/L Eosinophils <0.03 0.03 - 03/13/2021 [place] 0.48 7:27 AM VENDOR QUALITY SUPERVISOR x10(9)/L Basophils <0.03 0.01 - 03/13/2021 [place] 0.08 7:27 AM VENDOR QUALITY SUPERVISOR x10(9)/L Specimen Anatomical Collection Method Collection Time Receive d Time (Source) Location / / Volume Laterality Blood (Blood, 03/13/2021 5:37 AM 03/13/20 21 5:50 Venous) VENDOR QUALITY SUPERVISOR AM VENDOR QUALITY SUPERVISOR Barrera Vargas M.D. LAB BLOOD ADD-ON Performing Organization Address City/State/ZIP Code Phon e Number [facility]- [address] [place] [id number] [place] [address] System in [address] (ABNORMAL) Ammonia (03/13/2021 5:37 AM VENDOR QUALITY SUPERVISOR) P athologist Signature Ammonia, P 110 (H) <=51 03/13/2021 [place] mcmol/L 6:16 AM VENDOR QUALITY SUPERVISOR Specimen Anatomical Collection Method Collection Time Receive d Time (Source) Location / / Volume Laterality Blood (Blood, 03/13/2021 5:37 AM 03/13/20 5:49 Venous) VENDOR QUALITY SUPERVISOR AM VENDOR QUALITY SUPERVISOR Barrera Vargas M.D. LAB BLOOD NON ADD-ON Performing Organization Address City/State/ZIP Code Phon e Number [facility]- [address] [place] [id number] [place] [address] System in [facility] [address] [place] [address] DX Chest Portable 1 View (03/13/2021 4:32 AM VENDOR QUALITY SUPERVISOR) Anatomical Region Laterality Modality Chest, Thoracic RST LOS, Thoracic ARZ LOS, Thoracic N/A Digital Radiography FLA LOS Specimen (Source) Anatomical Collection Method Collection Time Re ceived Time Location / / Volume Laterality 03/13/2021 8:07 AM VENDOR QUALITY SUPERVISOR Impressions 03/13/2021 8:08 AM VENDOR QUALITY SUPERVISOR Persistent right basilar infiltrate or a telectasis. Narrative 03/13/2021 8:08 AM VENDOR QUALITY SUPERVISOR EXAM: DX CHEST PORTABLE 1 VIEW COMPARISON: [...] Ivan Lazo D.O. IMG DIAGNOSTIC IMAGING PROCE DURES (ABNORMAL) Basic Metabolic Panel (03/13/2021 1:20 AM VENDOR QUALITY SUPERVISOR) Analysis Performed At Patho logist Time Signature Potassium, P 2.9 (L) 3.6 - 5.2 03/13/2021 [place] mmol/L 1:58 AM VENDOR QUALITY SUPERVISOR Sodium, P 134 (L) 135 - 145 03/13/2021 [facility] mmol/L 1:58 AM VENDOR QUALITY SUPERVISOR Chloride, P 99 98 - 107 03/13/2021 [facility] mmol/L 1:58 AM VENDOR QUALITY SUPERVISOR Bicarbonate, P 20 (L) 22 - 29 03/13/2021 [facility] mmol/L 1:58 AM VENDOR QUALITY SUPERVISOR Anion Gap, P 15 7 - 15 03/13/2021 [facility] 1:58 AM VENDOR QUALITY SUPERVISOR BUN (Blood Urea 8 6 - 21 03/13/2021 [facility] Nitrogen), P mg/dL 1:58 AM VENDOR QUALITY SUPERVISOR Creatinine 0.56 (L) 0.59 - 03/13/2021 [facility] 1.04 mg/dL 1:58 AM VENDOR QUALITY SUPERVISOR eGFR-Black/Afri >90 >=60 03/13/2021 [facility] can [place] mL/min/BSA 1:58 AM VENDOR QUALITY SUPERVISOR Comment: ----ADDITIONAL INFORMATION---- Estimated GFR calculated using the 2009 CKD_EPI creatinine equation. eGFR Non-Black/ >90 >=60 mL/min/BSA 03/13/2021 1:58 AM VENDOR QUALITY SUPERVISOR [facility] Comment: ----ADDITIONAL INFORMATION---- Estimated GFR calculated using the 2009 CKD_EPI creatinine equation. Calcium, Total, P 8.9 8.6 - 10.0 mg/dL 03/13/2021 1:58 AM VENDOR QUALITY SUPERVISOR [facility] Glucose, P 120 70 - 140 mg/dL 03/13/2021 1:58 AM VENDOR QUALITY SUPERVISOR M KTO Specimen Anatomical Collection Method Collection Time Receive d Time (Source) Location / / Volume Laterality Blood (Blood, 03/13/2021 1:20 AM 03/13/20 1:23 Venous) VENDOR QUALITY SUPERVISOR AM VENDOR QUALITY SUPERVISOR Ivan Lazo D.O. LAB BLOOD ADD-ON Performing Organization Address City/State/ZIP Code Phon e Number [facility]- [address] [place] [phone] [place] [address] [place] [address] System [address] (ABNORMAL) Hemoglobin (03/13/2021 12:11 AM VENDOR QUALITY SUPERVISOR) athologist Signature Hemoglobin 7.4 (L) 11.6 - 15.0 03/13/2021 [place] g/dL 12:18 AM VENDOR QUALITY SUPERVISOR Specimen Anatomical Collection Method Collection Time Receive d Time (Source) Location / / Volume Laterality Blood (Blood, 03/13/2021 12:11 03/13/2021 Venous) AM VENDOR QUALITY SUPERVISOR 12:15 AM VENDOR QUALITY SUPERVISOR Barrera Vargas M.D. LAB BLOOD ADD-ON Performing Organization Address [facility]/ZIP Code Phon e Number [address] [address] [place] [address] Glucose, POCT (03/12/2021 11:44 PM VENDOR QUALITY SUPERVISOR) athologist Signature Glucose, POCT, 120 70 - 140 03/12/2021 [facility] B mg/dL 11:44 PM VENDOR QUALITY SUPERVISOR Specimen Anatomical Collection Method Collection Time Receive d Time (Source) Location / / Volume Laterality Blood 03/12/2021 11:44 03/12/2021 PM VENDOR QUALITY SUPERVISOR 11:51 PM VENDOR QUALITY SUPERVISOR Generic Rals LAB POCT ORDERABLES-MANUAL Performing Organization Address [facility] Phon e Number [address] [address] [place] [facility] [address] Ethyl Glucuronide Screen with Reflex, Urine (03/12/2021 11:12 PM VENDOR QUALITY SUPERVISOR) [facility] Method Time Signature Ethyl Negative Cutoff: 03/14/2021 SDSC Glucuronide Scrn 500 ng/mL 9:46 AM VENDOR QUALITY SUPERVISOR w/Reflex, U Comment: ----ADDITIONAL INFORMATION---- This test was developed and its performa nce characteristics determined by [facility] in a manner consistent with CLIA requirements. This test has not been cleared or approved by the [place] d and Drug Administration. Specimen Anatomical Collection Method Collection Time Receive d Time (Source) Location / / Volume Laterality Urine (Urine, 03/12/2021 11:12 03/14/2021 8:00 Clean Catch) PM VENDOR QUALITY SUPERVISOR AM VENDOR QUALITY SUPERVISOR Sera M Yurick P.A.-C. LAB URINE ORDERABLES Performing Organization Address City/State/ZIP Code Phon e Number [facility] [address] [place], [place] [address] [facility] SUPPORT C[facility] [place] [place] [address] Laboratory Medicine and Pathology [address] [place] INTUB W ETT, LDA ANE ENDOTRACHEAL AIRWAY (03/12/2021 10:30 PM VENDOR QUALITY SUPERVISOR) Narrative Barrera To M.D. - 2020 10:30 PM VENDOR QUALITY SUPERVISOR Barrera To M.D. ? 03/12/2021 ??6:07 PM Intubation Date/Time: 03/12/2021 10:30 PM Performed by: Barrera To M.D. Authorized by: Barrera To M.D. Patient location during procedure: ICU / PCU PROCEDURE DETAILS: Mask difficulty assessment: easy mask Final airway type: video laryngoscope Laryngeal Manipulation: no ?? Final best view of glottic structures - Cormack/Lehane Score: grade 2A ETT location: oral VL device: glide scope [place] scope blade size: 3 Adult tube size: [...] ORDERABLES (ABNORMAL) Glucose, POCT (03/12/2021 6:11 PM VENDOR QUALITY SUPERVISOR) P athologist Signature Glucose, POCT, 170 (H) 70 - 140 03/12/2021 [facility] B mg/dL 6:11 PM VENDOR QUALITY SUPERVISOR Specimen Anatomical Collection Method Collection Time Receive d Time (Source) Location / / Volume Laterality Blood 03/12/2021 6:11 PM 6:23 VENDOR QUALITY SUPERVISOR PM VENDOR QUALITY SUPERVISOR Generic Rals LAB POCT ORDERABLES-MANUAL Performing Organization Address City/State/ZIP Code Phon e Number [facility]- [address] [place] [phone] [place] [address] [place] [address] System in [place] [address] [facility] PARACENTESIS ABD WO IMG (03/12/2021 6:02 PM VENDOR QUALITY SUPERVISOR) Narrative Barrera To M.D. - 2020 6:02 PM VENDOR QUALITY SUPERVISOR Barrera To M.D. ? 03/12/2021 ??6:07 PM [...] PROCEDURE/MINOR SURGICAL ORDERABLES THORACENTESIS (03/12/2021 6:02 PM VENDOR QUALITY SUPERVISOR) Narrative Barrera To M.D. - 2020 6:02 PM VENDOR QUALITY SUPERVISOR Barrera To M.D. ? 03/12/2021 ??6:07 PM Thoracentesis Date/Time: 03/12/2021 6:02 PM Performed by: Barrera To M.D. Authorized by: Barrera To M.D. PROCEDURE DETAILS Location: right mid-axillary Intercostal space: 3rd Puncture method: [id number] cathete r Number of attempts: 1 Drainage [...] lidocaine Barrera Vargas M.D. PROCEDURE/MINOR SURGICAL ORDERABLES AZ INS NON-ALEN CVC >5YR, [place] US GUIDE VASC ACCESS, LDA ANE CENTRAL LINE TRIPLE LUMEN, MC ANE CENTRAL LINE GENERIC PERFORMABLE (03/12/2021 6:02 PM VENDOR QUALITY SUPERVISOR) Narrative Barrera To M.D. - 2020 6:02 PM VENDOR QUALITY SUPERVISOR Barrera To M.D. ? 03/12/2021 ??6:07 PM [...] slight turn: yes ?? Complications: none ?? Barrera Vargas M.D. PROCEDURE/MINOR SURGICAL ORDERABLES Transfuse Red Blood Cells : (03/12/2021 5:39 PM VENDOR QUALITY SUPERVISOR) Barrera Vargas M.D. BLOOD TRANSFUSION ORDERA BLES Transfuse Red Blood Cells : , 1 Units (03/12/2021 5:39 PM VENDOR QUALITY SUPERVISOR) Barrera Vargas M.D. BLOOD TRANSFUSION ORDERA BLES (ABNORMAL) Hemoglobin (03/12/2021 5:35 PM VENDOR QUALITY SUPERVISOR) P athologist Signature Hemoglobin 7.6 (L) 11.6 - 15.0 03/12/2021 [facility] g/dL 5:50 PM VENDOR QUALITY SUPERVISOR Specimen Anatomical Collection Method Collection Time Receive d Time (Source) Location / / Volume Laterality Blood (Blood, 03/12/2021 5:35 PM 03/12/20 21 5:46 Venous) VENDOR QUALITY SUPERVISOR PM VENDOR QUALITY SUPERVISOR Authorizing Provider Result Woodrow Vargas M.D. LAB BLOOD ADD-ON Performing Organization Address City/State/ZIP Code Phon e Number [facility]- [address] [place] [phone] [place] [address] System in [address] Calcium, Ionized (03/12/2021 5:35 PM VENDOR QUALITY SUPERVISOR) athologist Signature Calcium, 4.70 4.65 - 5.30 03/12/2021 [facility] Ionized, B mg/dL 5:49 PM VENDOR QUALITY SUPERVISOR Specimen Anatomical Collection Method Collection Time Receive d Time (Source) Location / / Volume Laterality Blood 03/12/2021 5:35 PM 5:46 VENDOR QUALITY SUPERVISOR PM VENDOR QUALITY SUPERVISOR Barrera Vargas M.D. LAB BLOOD NON ADD-ON Performing Organization Address City/[facility]/ZIP Code Phon e Number [facility]- [address] [place] [phone] [place] [address] (ABNORMAL) pH (03/12/2021 5:35 PM VENDOR QUALITY SUPERVISOR) athologist Signature pH 7.46 (H) 7.35 - 7.45 03/12/2021 [facility] pH 5:49 PM VENDOR QUALITY SUPERVISOR Specimen Anatomical Collection Method Collection Time Receive d Time (Source) Location / / Volume Laterality Blood 03/12/2021 5:35 PM 5:46 VENDOR QUALITY SUPERVISOR PM VENDOR QUALITY SUPERVISOR Barrera Vargas M.D. LAB HISTORICAL ORDERS Performing Organization Address City/[facility]/ZIP Code Phon e Number [facility]- [address] [place] [phone] [place] [address] System in [address] (ABNORMAL) Ammonia (03/12/2021 5:35 PM VENDOR QUALITY SUPERVISOR) athologist Signature Ammonia, P 80 (H) <=51 03/12/2021 [facility] mcmol/L 6:06 PM VENDOR QUALITY SUPERVISOR Specimen Anatomical Collection Method Collection Time Receive d Time (Source) Location / / Volume Laterality Blood (Blood, 03/12/2021 5:35 PM 03/12/20 21 5:46 Venous) VENDOR QUALITY SUPERVISOR PM VENDOR QUALITY SUPERVISOR Barrera Vargas M.D. LAB BLOOD NON ADD-ON Performing Organization Address City/State/ZIP Code Phon e Number [facility]- [address] [place] [phone] [place] [address] (ABNORMAL) Phosphorus Inorganic (03/12/2021 5:35 PM VENDOR QUALITY SUPERVISOR) P athologist Signature Phosphorus 4.6 (H) 2.5 - 4.5 03/12/2021 [facility] (Inorganic), P mg/dL 6:07 PM VENDOR QUALITY SUPERVISOR Specimen Anatomical Collection Method Collection Time Receive d Time (Source) Location / / Volume Laterality Blood (Blood, 03/12/2021 5:35 PM 03/12/20 5:46 Venous) VENDOR QUALITY SUPERVISOR PM VENDOR QUALITY SUPERVISOR Barrera Vargas M.D. LAB BLOOD ADD-ON Performing Organization Address City/[facility]/ZIP Code Phon e Number [address] [address] [place] [address] (ABNORMAL) Magnesium (03/12/2021 5:35 PM VENDOR QUALITY SUPERVISOR) P athologist Signature Magnesium, P 3.7 (H) 1.7 - 2.3 03/12/2021 [place] mg/dL 6:07 PM VENDOR QUALITY SUPERVISOR Specimen Anatomical Collection Method Collection Time Receive d Time (Source) Location / / Volume Laterality Blood (Blood, 03/12/2021 5:35 PM 03/12/20 5:46 Venous) VENDOR QUALITY SUPERVISOR PM VENDOR QUALITY SUPERVISOR Barrera Vargas M.D. LAB BLOOD ADD-ON Performing Organization Address City/[facility]/ZIP Code Phon e Number [facility]- [address] [place] [phone] [place] [address] (ABNORMAL) Comprehensive Metabolic Panel (03/12/2021 5:35 PM VENDOR QUALITY SUPERVISOR) Analysis Performed At Patho logist Time Signature Potassium, P 2.5 (CL) 3.6 - 5.2 03/12/2021 [facility] mmol/L 6:08 PM VENDOR QUALITY SUPERVISOR Sodium, P 133 (L) 135 - 145 03/12/2021 [place] mmol/L 6:07 PM VENDOR QUALITY SUPERVISOR Chloride, P 98 98 - 107 03/12/2021 [facility] mmol/L 6:07 PM VENDOR QUALITY SUPERVISOR Bicarbonate, P 20 (L) 22 - 29 03/12/2021 [facility] mmol/L 6:07 PM VENDOR QUALITY SUPERVISOR Anion Gap, P 15 7 - 15 03/12/2021 [facility] 6:07 PM VENDOR QUALITY SUPERVISOR BUN (Blood Urea 9 6 - 21 03/12/2021 [facility] Nitrogen), P mg/dL 6:07 PM VENDOR QUALITY SUPERVISOR Creatinine 0.57 (L) 0.59 - 03/12/2021 [facility] 1.04 mg/dL 6:07 PM VENDOR QUALITY SUPERVISOR eGFR-Black/Afri >90 >=60 03/12/2021 [facility] can [place] mL/min/BSA 6:07 PM VENDOR QUALITY SUPERVISOR Comment: ----ADDITIONAL INFORMATION---- Estimated GFR calculated using the 2009 CKD_EPI creatinine equation. eGFR Non-Black/ >90 >=60 mL/min/BSA 03/12/2021 6:07 PM VENDOR QUALITY SUPERVISOR [facility] Comment: ----ADDITIONAL INFORMATION---- Estimated GFR calculated using the 2009 CKD_EPI creatinine equation. Calcium, Total, P 8.7 8.6 - 10.0 mg/dL 03/12/2021 6:07 PM VENDOR QUALITY SUPERVISOR [facility] Glucose, P 190 (H) 70 - 140 mg/dL 03/12/2021 6:07 PM VENDOR QUALITY SUPERVISOR M KTO Protein, Total, P 5.5 (L) 6.3 - 7.9 g/dL 03/12/2021 6:07 P VENDOR QUALITY SUPERVISOR [facility] Albumin, P 3.4 (L) 3.5 - 5.0 g/dL 03/12/2021 6:07 PM VENDOR QUALITY SUPERVISOR M KTO Aspartate Aminotransferase 66 (H) 8 - 43 U/L 03/12/2021 6 :07 PM VENDOR QUALITY SUPERVISOR [place] (AST), P Alkaline Phosphatase, P 97 35 - 104 U/L 03/12/2021 6: 07 PM VENDOR QUALITY SUPERVISOR [facility] Alanine Aminotransferase 16 7 - 45 U/L 03/12/2021 6:0 7 PM VENDOR QUALITY SUPERVISOR [place] (ALT), P Bilirubin, Total, P 6.0 (H) <=1.2 mg/dL 03/12/2021 6:07 PM VENDOR QUALITY SUPERVISOR [facility] Specimen Anatomical Collection Method Collection Time Receive d Time (Source) Location / / Volume Laterality Blood (Blood, 03/12/2021 5:35 PM 03/12/20 5:46 Venous) VENDOR QUALITY SUPERVISOR PM VENDOR QUALITY SUPERVISOR Barrera Vargas M.D. LAB BLOOD ADD-ON Performing Organization Address City/[facility]/ZIP Code Phon e Number [facility]- [address] [place] [phone] [place] [address] System in [address] Bacterial Culture, Aerobic + Susc (03/12/2021 3:46 PM VENDOR QUALITY SUPERVISOR) [facility] Method Time Signature Bacterial No growth 03/17/2021 [place] Culture, after 5 7:38 AM VENDOR QUALITY SUPERVISOR Aerobic + Susc days of incubation. Specimen Anatomical Collection Method Collection Time Receive d Time (Source) Location / / Volume Laterality Fluid 03/12/2021 3:46 PM 3:46 (Peritoneal VENDOR QUALITY SUPERVISOR PM VENDOR QUALITY SUPERVISOR Fluid) Comment: Specimen Source Site: Fluid Sera Morgan P.A.-C. LAB MICROBIOLOGY - GENERAL O RDERABLES Performing Organization Address City/[facility]/ZIP Code Phon e Number [facility]- [address] [place] [phone] [place] [address] Bacterial Culture, Anaerobic + Susc (03/12/2021 3:46 PM VENDOR QUALITY SUPERVISOR) [facility] Method Time Signature Bacterial No growth 03/19/2021 [place] Culture, after 7 8:26 AM VENDOR QUALITY SUPERVISOR Anaerobic days of incubation. Specimen Anatomical Collection Method Collection Time Receive d Time (Source) Location / / Volume Laterality Fluid 03/12/2021 3:46 PM 1 3:46 (Peritoneal VENDOR QUALITY SUPERVISOR PM VENDOR QUALITY SUPERVISOR Fluid) Comment: Specimen Source Site: Fluid Sera Morgan P.A.-C. LAB MICROBIOLOGY - GENERAL O RDERABLES Performing Organization Address City/[facility]/ZIP Code Phon e Number [facility]- [address] [place] [phone] [place] [address] System in [address] Gram Stain (03/12/2021 3:46 PM VENDOR QUALITY SUPERVISOR) Patholo gist Method Time Signature Gram Stain No organisms seen. 03/12/2021 [place] White blood cells present. 6:22 PM VENDOR QUALITY SUPERVISOR Stain performed on concentrated cytospin preparation. Specimen Anatomical Collection Method Collection Time Receive d Time (Source) Location / / Volume Laterality Fluid 03/12/2021 3:46 PM 1 3:46 (Peritoneal VENDOR QUALITY SUPERVISOR PM VENDOR QUALITY SUPERVISOR Fluid) Comment: Specimen Source Site: Fluid Sera Morgan P.A.-C. LAB MICROBIOLOGY - GENERAL O RDERABLES Performing Organization Address City/State/ZIP Code Phon e Number [facility]- [address] [place] [phone] [place] [address] [address] Protein, Total, Body Fluid (03/12/2021 3:46 PM VENDOR QUALITY SUPERVISOR) P athologist Signature Protein, 1.0 See Comment 03/14/2021 DTL Total, BF g/dL 10:40 AM VENDOR QUALITY SUPERVISOR Comment: ----ADDITIONAL INFORMATION---- A pleural fluid total [...] This test has been modified from the power grader operator's instructions. Its perform ance characteristics were determined by [facility] in a manner consistent with CLIA require ments. This test has not been cleared or approv ed by the U.S. Food and Drug Administration. Fluid Type, Protein, Total PERITONEAL 03/14/2021 1 0:06 AM VENDOR QUALITY SUPERVISOR DTL Specimen Anatomical Collection Method Collection Time Receive d Time (Source) Location / / Volume Laterality Fluid 03/12/2021 3:46 PM 1 9:49 (Peritoneal VENDOR QUALITY SUPERVISOR AM VENDOR QUALITY SUPERVISOR Fluid) Sera Morgan P.A.-C. LAB BODY FLUIDS AND STOOLS O RDERABLES Performing Organization Address City/State/ZIP Code Phon e Number [facility] - [address] [place], [place] [address] [facility] [place] [address] [facility] [address] Cell Count and Differential, Body Fluid (03/12/2021 3:46 PM VENDOR QUALITY SUPERVISOR) [facility] Method Time Signature Fluid Type Peritoneal/ 03/12/2021 [place] Paracentesi 4:30 PM VENDOR QUALITY SUPERVISOR s Gross Serous 03/12/2021 [place] Appearance 4:33 PM VENDOR QUALITY SUPERVISOR Total Nucleated 53 /mcL 03/12/2021 [facility] Cells 4:33 PM VENDOR QUALITY SUPERVISOR Comment: ----REFERENCE VALUE---- Synovial: <150 Peritoneal: <500 Pleural: <500 Pericardial: <500 ----ADDITIONAL INFORMATION---- This test has been modified from the man ufacturer's instructions. Its performance characteri stics were determined by [facility] in a manner co nsistent with CLIA requirements. This test has not bee n cleared or approved by the U.S. Food and Drug Admin istration. Lymphocytes 31 Synovial: <75% % 03/12/2021 5:20 PM CS T [facility] Monocytes/Macrophages 63 Synovial: <70% % 03/12/2021 5:20 PM VENDOR QUALITY SUPERVISOR [facility] Other Cells 6 % 03/12/2021 5:20 PM VENDOR QUALITY SUPERVISOR [facility] Comment: ----REFERENCE VALUE---- The reference range and other method per formance specifications have not been established for this body fluid. The test result must be integrate d into the clinical context for interpretation. Other Cells Are: Mesothelial cells 03/12/2021 5:20 PM VENDOR QUALITY SUPERVISOR [facility] Comment SeeComment 03/12/2021 4:33 PM VENDOR QUALITY SUPERVISOR [facility] Comment: will be reviewed py path. Reviewed by: Dr. Fox 03/13/2021 8:07 AM VENDOR QUALITY SUPERVISOR [facility] Comment: REVISED RESULTS ----PREVIOUSLY REPORTED ---- DNR, Flagged as: Normal (Reported 03/12/2021 17:20) Specimen Anatomical Collection Method Collection Time Receive d Time (Source) Location / / Volume Laterality Fluid 03/12/2021 3:46 PM 11/10/202 1 3:46 (Peritoneal VENDOR QUALITY SUPERVISOR PM VENDOR QUALITY SUPERVISOR Fluid) Sera Morgan P.A.-C. LAB BODY FLUIDS AND STOOLS O JOSE Performing Organization Address City/[facility]/ZIP Code Phon e Number [facility]- [address] [place] [address] [place] [address] System in [place] [address] [facility] Albumin, Body Fluid (03/12/2021 3:46 PM VENDOR QUALITY SUPERVISOR) athologist Signature Albumin BF 0.7 See Comment 03/14/2021 DTL g/dL 10:40 AM VENDOR QUALITY SUPERVISOR Comment: ----ADDITIONAL INFORMATION---- Peritoneal fluid albumin is used to calc ulate the serum-ascites albumin gradient (SAAG). V alues greater than or equal to 1.1 g/dL suggest portal hypertension. Pleural fluid albumin may be used to ada culate a serum-effusion albumin gradient. Values greater than 1.2 g/dL are most consistent with a noriega sudative process. ?? All other fluids refer to [email or web address] for further interpretive information. This t est has been modified from the power grader operator's instruc tions. Its performance characteristics were determi foreign by [facility] in a manner consistent with CLIA require ments. This test has not been cleared or approved by the U.S. Food and Drug Administration. Fluid Type, Albumin PERITONEAL 03/14/2021 10:06 AM VENDOR QUALITY SUPERVISOR DTL Specimen Anatomical Collection Method Collection Time Receive d Time (Source) Location / / Volume Laterality Fluid 03/12/2021 3:46 PM 1 9:49 (Peritoneal VENDOR QUALITY SUPERVISOR AM VENDOR QUALITY SUPERVISOR Fluid) Sera Morgan P.A.-C. LAB BODY FLUIDS AND STOOLS O JOSE Performing Organization Address City/State/ZIP Code Phon e Number [facility] - [address] [place], [place] [address] [facility] [place] [address] [facility] [address] [facility] [id number] (03/12/2021 2:57 PM VENDOR QUALITY SUPERVISOR) athologist Signature [id number] 170 100 - 190 03/14/2021 SDSC psin, S mg/dL 10:09 AM VENDOR QUALITY SUPERVISOR Specimen Anatomical Collection Method Collection Time Receive d Time (Source) Location / / Volume Laterality Blood (Blood, 03/12/2021 2:57 PM 03/14/20 21 7:05 Venous) VENDOR QUALITY SUPERVISOR AM VENDOR QUALITY SUPERVISOR Sera Morgan P.A.-C. LAB BLOOD ADD-ON Performing Organization Address City/[facility]/ZIP Code Phon e Number [facility] [address] [place], [place] [address] [facility] [place] [address] Laboratory Medicine and Pathology [address] [place] (ABNORMAL) Ceruloplasmin (03/12/2021 2:57 PM VENDOR QUALITY SUPERVISOR) P athologist Signature Ceruloplasmin, 16.5 (L) 20.0 - 03/13/2021 DTL S 51.0 mg/dL 10:48 AM VENDOR QUALITY SUPERVISOR Comment: A low concentration of ceruloplasmin in [...] at or the on-line test catalog at [employer] for m ore information. Specimen Anatomical Collection Method Collection Time Receive d Time (Source) Location / / Volume Laterality Blood 03/12/2021 2:57 PM 8:43 VENDOR QUALITY SUPERVISOR AM VENDOR QUALITY SUPERVISOR Barrera Vargas M.D. LAB BLOOD ADD-ON Performing Organization Address City/[facility]/ZIP Code Phon e Number [facility] - [address] [place], [place] [address] [facility] [place] [address] [facility] [address] Autoimmune Liver Disease Panel (03/12/2021 2:57 PM VENDOR QUALITY SUPERVISOR) Analysis Performed At Patho logist Time Signature Mitochondrial Ab, <0.1 <0.1 03/13/2021 [facility] M2, S (Negative) 2:19 PM VENDOR QUALITY SUPERVISOR U Antinuclear Ab, S 0.2 <=1.0 03/13/2021 [facility] (Negative) 12:55 PM VENDOR QUALITY SUPERVISOR U Comment: ----ADDITIONAL INFORMATION---- Method: Enzyme-linked immunoassay using HEp-2 nuclear extract supplemented with purified antig ens. Smooth Muscle Ab Screen, S Negative Negative 03/13/2021 12 :11 PM VENDOR QUALITY SUPERVISOR [facility] Comment: Negative: No further testing will be per formed ----ADDITIONAL INFORMATION---- This test was developed and its performa nce characteristics determined by [facility] in a manner consistent with CLIA requirements. This test has not been cleared or approved by the [place]. [place] d and Drug Administration. Specimen Anatomical Collection Method Collection Time Receive d Time (Source) Location / / Volume Laterality Blood 03/12/2021 2:57 PM 7:28 VENDOR QUALITY SUPERVISOR AM VENDOR QUALITY SUPERVISOR Barrera Vargas M.D. LAB BLOOD ADD-ON Performing Organization Address City/State/ZIP Code Phon e Number [facility] [address] [place] [address] [place] [address] Laboratory Medicine and Pathology [address] [place] [address] Dr. [place] (ABNORMAL) Glucose, POCT (03/12/2021 2:06 PM VENDOR QUALITY SUPERVISOR) P athologist Signature Glucose, POCT, 155 (H) 70 - 140 03/12/2021 [facility] B mg/dL 2:06 PM VENDOR QUALITY SUPERVISOR Specimen Anatomical Collection Method Collection Time Receive d Time (Source) Location / / Volume Laterality Blood 03/12/2021 2:06 PM 1 2:39 VENDOR QUALITY SUPERVISOR PM VENDOR QUALITY SUPERVISOR Generic [facility] LAB POCT ORDERABLES-MANUAL Performing Organization Address City/State/ZIP Code Phon e Number [facility]- [address] [place] [id number] [place] [address] System [place] [address] Abdomen Pelvis with IV Contrast (03/12/2021 1:50 PM VENDOR QUALITY SUPERVISOR) Anatomical Region Laterality Modality Abdomen, Pelvis, Abdominal RST LOS, Abdominal ARZ LOS, N/A Computed Tomography Abdominal FLA LOS Specimen (Source) Anatomical Collection Method Collection Time Re ceived Time Location / / Volume Laterality 03/12/2021 2:04 PM VENDOR QUALITY SUPERVISOR Impressions 03/12/2021 2:37 PM VENDOR QUALITY SUPERVISOR 1. ??Partial atelectasis of the bilatera l [...] anterior fifth rib. Narrative 03/12/2021 2:37 PM VENDOR QUALITY SUPERVISOR EXAM: CT CHEST WITH IV CONTRAST, CT [...] Barrera Vargas M.D. IMG CT PROCEDURES CT Chest with IV Contrast (03/12/2021 1:50 PM VENDOR QUALITY SUPERVISOR) Anatomical Region Laterality Modality Chest, Thoracic RST LOS, Thoracic ARZ LOS, Thoracic N/A Computed Tomography ARZ LOS, Thoracic FLA LOS Specimen (Source) Anatomical Collection Method Collection Time Re ceived Time Location / / Volume Laterality 03/12/2021 2:04 PM VENDOR QUALITY SUPERVISOR Impressions 03/12/2021 2:37 PM VENDOR QUALITY SUPERVISOR 1. ??Partial atelectasis of the bilatera l [...] anterior fifth rib. Narrative 03/12/2021 2:37 PM VENDOR QUALITY SUPERVISOR EXAM: CT CHEST WITH IV CONTRAST, CT [...] Head without IV Contrast (03/12/2021 1:49 PM VENDOR QUALITY SUPERVISOR) Anatomical Region Laterality Modality Head, Neuroradiology RST LOS, Neuroradiology ARZ LOS, N/A Computed Tomography Neuroradiology FLA LOS Specimen (Source) Anatomical Collection Method Collection Time Re ceived Time Location / / Volume Laterality 03/12/2021 1:50 PM VENDOR QUALITY SUPERVISOR Impressions 03/12/2021 1:52 PM VENDOR QUALITY SUPERVISOR No acute CT abnormalities are demonstrated. Narrative 03/12/2021 1:52 PM VENDOR QUALITY SUPERVISOR EXAM: CT HEAD WITHOUT IV CONTRAST COMPARISON: [...] Barrera Vargas M.D. IMG CT PROCEDURES Cytology Non-PROPOSITION PLAYER (03/12/2021 1:11 PM VENDOR QUALITY SUPERVISOR) Component Value Ref Test Analysis Performed At [facility] Range Method Time Signature /14/2021 HK 12:37 PM VENDOR QUALITY SUPERVISOR Report Lloyd Alfaro MD 03/14/2021 [facility] electronically 12:37 PM signed by VENDOR QUALITY SUPERVISOR I verify that I have examined all relevant slides/materials for the specimen(s) and rendered or confirmed the diagnosis. Gross Description 800 ml cloudy brownish red fluid received. ??60 m l fixed 03/14/2021 [facility] with 70% ETOH 03-12-21 @ 15:30 12:37 PM 2 slides and cell block prepared. VENDOR QUALITY SUPERVISOR Source A. Pleural, 03/14/2021 [facility] Right, fluid 12:37 PM VENDOR QUALITY SUPERVISOR Interpretation A. Pleural, Right, fluid (smears/cell block): Negati ve for 03/14/2021 [facility] malignancy. 12:37 PM VENDOR QUALITY SUPERVISOR Specimen Anatomical Collection Method Collection Time Receive d Time (Source) Location / / Volume Laterality Varies 03/12/2021 1:11 PM 6:20 VENDOR QUALITY SUPERVISOR AM VENDOR QUALITY SUPERVISOR Narrative This result has an attachment that is no t available. Barrera Vargas M.D. LAB SURG PATH ORDERABLES Performing Organization Address City/[facility] Phon e Number [facility]- [facility] [place] [address] System [facility] [address] [place] [address] ECG 12 Lead (03/12/2021 1:01 PM VENDOR QUALITY SUPERVISOR) P athologist Signature Ventricular Rate 84 BPM MUSE ECG/Min [place] Interval 166 ms MUSE QRSD Interval 92 ms MUSE QT Interval 436 ms MUSE QTC Interval 516 ms MUSE P [place] 62 degrees MUSE R [place] 43 degrees MUSE T Wave [place] -20 degrees MUSE Specimen Anatomical Collection Method Collection Time Receive d Time (Source) Location / / Volume Laterality 03/12/2021 1:01 PM 1:24 VENDOR QUALITY SUPERVISOR PM VENDOR QUALITY SUPERVISOR Impressions MUSE - 03/12/2021 1:21 PM VENDOR QUALITY SUPERVISOR Normal sinus rhythm ST and T wave [...] P.A.-C., M.S. ECG ORDERABLES Performing Organization Address City/[facility]/ZIP Code Phon e Number MUSE MUSE NA DX Chest Portable 1 View (03/12/2021 1:00 PM VENDOR QUALITY SUPERVISOR) Anatomical Region Laterality Modality Chest, Thoracic RST LOS, Thoracic ARZ LOS, Thoracic N/A Digital Radiography FLA LOS Specimen (Source) Anatomical Collection Method Collection Time Re ceived Time Location / / Volume Laterality 03/12/2021 1:12 PM VENDOR QUALITY SUPERVISOR Impressions 03/12/2021 1:14 PM VENDOR QUALITY SUPERVISOR 1. New endotracheal tube with tip positioned [...] acute airspace disease. Narrative 03/12/2021 1:14 PM VENDOR QUALITY SUPERVISOR EXAM: DX CHEST PORTABLE 1 VIEW COMPARISON: [...] P ROCEDURES Testing Location (03/12/2021 12:59 PM VENDOR QUALITY SUPERVISOR) athologist Signature Testing [facility] DEFAULT 03/12/2021 [facility] Location 1:05 PM VENDOR QUALITY SUPERVISOR Specimen Anatomical Collection Method Collection Time Receive d Time (Source) Location / / Volume Laterality Blood 03/12/2021 12:59 03/12/2021 1:05 PM VENDOR QUALITY SUPERVISOR PM VENDOR QUALITY SUPERVISOR Barrera Vargas M.D. LAB BLOOD BANK TEST ORDE GOSIA Performing Organization Address [facility] Phon e Number [address] [id number] [place] [address] (ABNORMAL) Bilirubin, Direct (03/12/2021 12:59 PM VENDOR QUALITY SUPERVISOR) athologist Signature Bilirubin, 2.7 (H) 0.0 - 0.3 03/12/2021 [facility] Direct, P mg/dL 1:40 PM VENDOR QUALITY SUPERVISOR Specimen Anatomical Collection Method Collection Time Receive d Time (Source) Location / / Volume Laterality Blood (Blood, 03/12/2021 12:59 03/12/2021 1:08 Venous) PM VENDOR QUALITY SUPERVISOR PM VENDOR QUALITY SUPERVISOR Sera Morgan P.A.-C. LAB BLOOD ADD-ON Performing Organization Address City/[facility] Phon e Number [address] [address] [place] [address] Patient Status (03/12/2021 12:59 PM VENDOR QUALITY SUPERVISOR) athologist Signature FIO2 0.50 0.21=AIR 03/12/2021 1:09 [facility] PM VENDOR QUALITY SUPERVISOR Specimen Anatomical Collection Method Collection Time Receive d Time (Source) Location / / Volume Laterality Blood 03/12/2021 12:59 03/12/2021 1:04 PM VENDOR QUALITY SUPERVISOR PM VENDOR QUALITY SUPERVISOR Barrera Vargas M.D. LAB BLOOD NON ADD-ON Performing Organization Address City/State/ZIP Code Phon e Number [facility]- [address] [place] [id number] [place] [address] Lactate, B (03/12/2021 12:59 PM VENDOR QUALITY SUPERVISOR) P athologist Signature Lactate, B 2.2 0.5 - 2.2 03/12/2021 [facility] mmol/L 1:09 PM VENDOR QUALITY SUPERVISOR Specimen Anatomical Collection Method Collection Time Receive d Time (Source) Location / / Volume Laterality Blood 03/12/2021 12:59 03/12/2021 1:05 PM VENDOR QUALITY SUPERVISOR PM VENDOR QUALITY SUPERVISOR Barrera Vargas M.D. LAB BLOOD NON ADD-ON Performing Organization Address City/[facility]/ZIP Code Phon e Number [facility]- [address] [place] [phone] [place] [address] (ABNORMAL) Blood Gas with Coox, Arterial (03/12/2021 12:59 PM VENDOR QUALITY SUPERVISOR) P athologist Signature P O2 102 83 - 108 03/12/2021 [facility] mm Hg 1:09 PM VENDOR QUALITY SUPERVISOR P CO2 31 (L) 32 - 45 mm 03/12/2021 [facility] Hg 1:09 PM VENDOR QUALITY SUPERVISOR pH 7.47 (H) 7.35 - 03/12/2021 [facility] 7.45 pH 1:09 PM VENDOR QUALITY SUPERVISOR Base Excess -1 -2 - 3 03/12/2021 [facility] mmol/L 1:09 PM VENDOR QUALITY SUPERVISOR HCO3 23 22 - 26 03/12/2021 [facility] mmol/L 1:09 PM VENDOR QUALITY SUPERVISOR Hemoglobin, B 6.5 (L) 11.6 - 03/12/2021 [facility] 15.0 g/dL 1:09 PM VENDOR QUALITY SUPERVISOR O2Hb 96.9 94.0 - 03/12/2021 [facility] 98.0 % 1:09 PM VENDOR QUALITY SUPERVISOR COHb 1.8 <3.0 % 03/12/2021 [facility] 1:09 PM VENDOR QUALITY SUPERVISOR MetHb 0.0 <1.5 % 03/12/2021 [facility] 1:09 PM VENDOR QUALITY SUPERVISOR CtO2 9.1 (L) 18.0 - 03/12/2021 [facility] 21.0 vol % 1:09 PM VENDOR QUALITY SUPERVISOR Arterial Art Line 03/12/2021 [facility] Sample Site 1:09 PM VENDOR QUALITY SUPERVISOR Comment: Michael's test not done. Specimen Anatomical Collection Method Collection Time Receive d Time (Source) Location / / Volume Laterality Blood (Blood, 03/12/2021 12:59 03/12/2021 1:04 Arterial) PM VENDOR QUALITY SUPERVISOR PM VENDOR QUALITY SUPERVISOR Barrera Vargas M.D. LAB BLOOD NON ADD-ON Performing Organization Address City/State/[facility] Code Phon e Number [id number] [place] [address] [place] [address] Type and Screen (with reflex Antibody ID) (03/12/2021 12:59 PM VENDOR QUALITY SUPERVISOR) Patholo gist Method Time Signature ABO Group B 03/12/2021 [facility] 1:45 PM VENDOR QUALITY SUPERVISOR Rh Type POS 03/12/2021 [facility] 1:45 PM VENDOR QUALITY SUPERVISOR Antibody Screen NEG 03/12/2021 [facility] 1:45 PM VENDOR QUALITY SUPERVISOR Type & Screen 03/15/2021 03/12/2021 [facility] Expiration 23:59 1:45 PM VENDOR QUALITY SUPERVISOR ELXM Eligible Y 03/12/2021 [facility] 1:45 PM VENDOR QUALITY SUPERVISOR Specimen Anatomical Collection Method Collection Time Receive d Time (Source) Location / / Volume Laterality Blood (Blood, 03/12/2021 12:59 03/12/2021 1:05 Venous) PM VENDOR QUALITY SUPERVISOR PM VENDOR QUALITY SUPERVISOR Barrera Vargas M.D. LAB BLOOD BANK TEST ORDE RABLES Performing Organization Address City/State/ZIP [facility] Phon e Number [facility]- [address] [place] [phone] [place] [address] LD (Lactate Dehydrogenase) (03/12/2021 12:59 PM VENDOR QUALITY SUPERVISOR) Analysis Performed At Patho logist Time Signature Lactate 218 122 - 222 03/12/2021 [facility] Dehydrogenase U/L 1:39 PM VENDOR QUALITY SUPERVISOR (LD), P Specimen Anatomical Collection Method Collection Time Receive d Time (Source) Location / / Volume Laterality Blood (Blood, 03/12/2021 12:59 03/12/2021 1:26 Venous) PM VENDOR QUALITY SUPERVISOR PM VENDOR QUALITY SUPERVISOR Barrera Vargas M.D. LAB BLOOD NON ADD-ON Performing Organization Address City/[facility]/ZIP Code Phon e Number [facility]- [address] [place] [phone] [place] [address] System in [facility] [address] [facility] Cytology Non-PROPOSITION PLAYER (03/12/2021 12:39 PM VENDOR QUALITY SUPERVISOR) Component Value Ref Test Analysis Performed At [facility] gist Range Method Time Signature 03/14/2021 [facility] 12:36 PM VENDOR QUALITY SUPERVISOR Report Lloyd Alfaro MD 03/14/2021 [facility] electronically 12:36 PM signed by VENDOR QUALITY SUPERVISOR I verify that I have examined all relevant slides/materials for the specimen(s) and rendered or confirmed the diagnosis. Gross Description 925 ml of cloudy hinson yellow fluid received. ?? Specimen 03/14/2021 [facility] fixed @ 2:00 pm on 03-12-2021. 12:36 PM 2 slides and cell block prepared. VENDOR QUALITY SUPERVISOR Collection Paracentesis 03/14/2021 [facility] Procedure 12:36 PM VENDOR QUALITY SUPERVISOR Source A. Peritoneal, 03/14/2021 [facility] fluid 12:36 PM VENDOR QUALITY SUPERVISOR Interpretation A. Peritoneal, fluid (smears/cell block): Negative f or 03/14/2021 [facility] malignancy. 12:36 PM VENDOR QUALITY SUPERVISOR Specimen Anatomical Collection Method Collection Time Receive d Time (Source) Location / / Volume Laterality Varies 03/12/2021 12:39 03/12/2021 2:00 PM VENDOR QUALITY SUPERVISOR PM VENDOR QUALITY SUPERVISOR Narrative This result has an attachment that is no t available. Barrera Vargas M.D. LAB SURG PATH ORDERABLES Performing Organization Address City/[facility]/ZIP Code Phon e Number [facility]- [address] [place] [id number] [place] [address] [facility] Cytology [address] [facility] Lactate Dehydrogenase (LD), Body Fluid (03/12/2021 12:35 PM VENDOR QUALITY SUPERVISOR) Patholo gist Method Time Signature Lactate 84 See Comment 03/13/2021 [facility] Dehydrogenase U/L 11:50 AM VENDOR QUALITY SUPERVISOR (LD), BF Comment: ----ADDITIONAL INFORMATION---- Pleural fluid [...] clinical findings. All other fluids refer to [email or web address] [email or web address] for further interpretive information. This test has been modified from the man cecilacturer's instructions. Its performance characteristics were det ermined by [facility] in a manner consistent with CLIA requirements . This test has not been cleared or approved by the U.S. Food and Drug Administration. Fluid Type, Lactate Pleural Fluid, Right 1 10:15 AM VENDOR QUALITY SUPERVISOR DTL Dehydrogenase Specimen Anatomical Collection Method Collection Time Receive d Time (Source) Location / / Volume Laterality Fluid (Pleural 03/12/2021 12:35 1 8:56 Fluid, Right) PM VENDOR QUALITY SUPERVISOR AM VENDOR QUALITY SUPERVISOR Barrera Vargas M.D. LAB BODY FLUIDS AND STOO LS ORDERABLES Performing Organization Address City/State/ZIP Code Phon e Number [facility] - [address] [place], [place] [address] [facility] [place] [address] [facility] [address] Protein, Total, Body Fluid (03/12/2021 12:35 PM VENDOR QUALITY SUPERVISOR) P athologist Signature Protein, 1.5 See Comment 03/13/2021 [facility]TL Total, BF g/dL 11:50 AM VENDOR QUALITY SUPERVISOR Comment: ----ADDITIONAL INFORMATION---- A pleural fluid total [...] ical findings. All other fluids refer to [email or web address] for further inter pretive information. This test has been modified from the power grader operator's instructions. Its perform ance characteristics were determined by [facility] in a manner consistent with CLIA require ments. This test has not been cleared or approv ed by the U.S. Food and Drug Administration. Fluid Type, Protein, Total Pleural Fluid, Right 10:15 AM VENDOR QUALITY SUPERVISOR DTL Specimen Anatomical Collection Method Collection Time Receive d Time (Source) Location / / Volume Laterality Fluid (Pleural 03/12/2021 12:35 8:56 Fluid, Right) PM VENDOR QUALITY SUPERVISOR AM VENDOR QUALITY SUPERVISOR Barrera Vargas M.D. LAB BODY FLUIDS AND STOO LS ORDERABLES Performing Organization Address City/State/ZIP Code Phon e Number [facility] - [address] [place], [place] [address] [facility] [place] [address] [facility] [address] Glucose, Body Fluid (03/12/2021 12:34 PM VENDOR QUALITY SUPERVISOR) P athologist Signature Glucose, BF 124 See Comment 03/13/2021 [facility]TL mg/dL 11:44 AM VENDOR QUALITY SUPERVISOR Comment: ----ADDITIONAL INFORMATION---- Body fluid glucose concentrations [...] of infection. All other fluids refer to [email or web address] for further inter pretive information. This test has been modified from the man ufacturer's instructions. Its performance characteri stics were determined by [facility] in a manner co nsistent with CLIA requirements. This test has not been norah ared or approved by the U.S. Food and Drug Administration. Fluid Type, Glucose Pleural Fluid, Right 1 10:14 AM VENDOR QUALITY SUPERVISOR DTL Specimen Anatomical Collection Method Collection Time Receive d Time (Source) Location / / Volume Laterality Fluid (Pleural 03/12/2021 12:34 1 8:55 Fluid, Right) PM VENDOR QUALITY SUPERVISOR AM VENDOR QUALITY SUPERVISOR Barrera Vargas M.D. LAB BODY FLUIDS AND STOO LS ORDERABLES Performing Organization Address City/State/ZIP Code Phon e Number [facility] - [address] [place], [place] [address] [facility] [place] [address] [facility] [address] Gram Stain (03/12/2021 12:34 PM VENDOR QUALITY SUPERVISOR) [facility] Method Time Signature Gram Stain No organisms seen. 03/12/2021 [facility] White blood cells present. 4:46 PM VENDOR QUALITY SUPERVISOR Stain performed on concentrated cytospin preparation. Specimen Anatomical Collection Method Collection Time Receive d Time (Source) Location / / Volume Laterality Fluid (Pleural 03/12/2021 12:34 1 1:08 Fluid, Right) PM VENDOR QUALITY SUPERVISOR PM VENDOR QUALITY SUPERVISOR Comment: Specimen Source Site: Fluid Barrera Vargas M.D. LAB MICROBIOLOGY - GENER AL ORDERABLES Performing Organization Address City/[facility]/ZIP Code Phon e Number [facility]- [address] [place] [phone] [place] [address] [place] [address] System in [facility] [address] [place] [address] Cell Count and Differential, Body Fluid (03/12/2021 12:34 PM VENDOR QUALITY SUPERVISOR) [facility] Method Time Signature Fluid Type Pleural/Thor 03/12/2021 [facility] acentesis 2:12 PM VENDOR QUALITY SUPERVISOR Gross Slightly 03/12/2021 [facility] Appearance Cloudy 2:13 PM VENDOR QUALITY SUPERVISOR Total 350 /mcL 03/12/2021 [facility] Nucleated 2:13 PM VENDOR QUALITY SUPERVISOR Cells Comment: ----REFERENCE VALUE---- Synovial: <150 Peritoneal: <500 Pleural: <500 Pericardial: <500 ----ADDITIONAL INFORMATION---- This test has been modified from the [facility] hospital[facility]'s instructions. Its performance characteri stics were determined by [facility] in a manner co nsistent with CLIA requirements. This test has not bee n cleared or approved by the U.S. Food and Drug Admin istration. Neutrophils 4 % 03/12/2021 2:47 PM VENDOR QUALITY SUPERVISOR [facility] Comment: ----REFERENCE VALUE---- Synovial: <25% Peritoneal: <25% Pleural: <25% Pericardial: <25% Lymphocytes 13 Synovial: <75% % 03/12/2021 2:47 PM CS T [facility] Monocytes/Macrophages 76 Synovial: <70% % 03/12/2021 2:47 PM VENDOR QUALITY SUPERVISOR [facility] Other Cells 7 % 03/12/2021 2:47 PM VENDOR QUALITY SUPERVISOR [facility] Comment: ----REFERENCE VALUE---- The reference range and other method per formance specifications have not been established for this body fluid. The test result must be integrate d into the clinical context for interpretation. Other Cells Are: Mesothelial cells 03/12/2021 2:47 PM VENDOR QUALITY SUPERVISOR [facility] Reviewed by: Dr. Joshua Castrejon 03/12/2021 2:47 PM CS T [facility] Specimen Anatomical Collection Method Collection Time Receive d Time (Source) Location / / Volume Laterality Fluid (Pleural 03/12/2021 12:34 1 1:08 Fluid, Right) PM VENDOR QUALITY SUPERVISOR PM VENDOR QUALITY SUPERVISOR Barrera Vargas M.D. LAB BODY FLUIDS AND STOO LS ORDERABLES Performing Organization Address City/[facility] Phon e Number [facility]- [address] [place] [address] [place] [address] System in [address] Bacterial Culture, Anaerobic + Susc (03/12/2021 12:34 PM VENDOR QUALITY SUPERVISOR) [facility] gist Method Time Signature Bacterial No growth 03/19/2021 [facility] Culture, after 7 8:26 AM VENDOR QUALITY SUPERVISOR Anaerobic days of incubation. Specimen Anatomical Collection Method Collection Time Receive d Time (Source) Location / / Volume Laterality Fluid (Pleural 03/12/2021 12:34 1 1:08 Fluid, Right) PM VENDOR QUALITY SUPERVISOR PM VENDOR QUALITY SUPERVISOR Comment: Specimen Source Site: Fluid Barrera Vargas M.D. LAB MICROBIOLOGY - GENER AL ORDERABLES Performing Organization Address City/State/ZIP [facility] Phon e Number [facility]- [address] [place] [id number] [place] [address] Bacterial Culture, Aerobic + Susc (03/12/2021 12:34 PM VENDOR QUALITY SUPERVISOR) [facility] Method Time Signature Bacterial No growth 03/17/2021 [facility] Culture, after 5 7:38 AM VENDOR QUALITY SUPERVISOR Aerobic + Susc days of incubation. Specimen Anatomical Collection Method Collection Time Receive d Time (Source) Location / / Volume Laterality Fluid (Pleural 03/12/2021 12:34 1:08 Fluid, Right) PM VENDOR QUALITY SUPERVISOR PM VENDOR QUALITY SUPERVISOR Comment: Specimen Source Site: Fluid Barrera Vargas M.D. LAB MICROBIOLOGY - GENER AL ORDERABLES Performing Organization Address [facility]/ZIP Code Phon e Number [facility]- [address] [place] [phone] [place] [address] Influenza A/B and RSV, PCR, Varies (03/12/2021 11:00 AM VENDOR QUALITY SUPERVISOR) [facility] Method Time Signature Influenza A/B Swab, 03/13/2021 DTL and RSV, Nasopharynx 11:55 AM Source VENDOR QUALITY SUPERVISOR Influenza A, Undetected Undetected 03/13/2021 DTL PCR 11:55 AM VENDOR QUALITY SUPERVISOR Comment: Influenza A RNA absent. Influenza B, PCR Undetected Undetected 03/13/2021 11:[address] DTL Comment: Influenza B RNA absent. Respiratory Syncytial Virus, Undetected Undetected 11:55 AM VENDOR QUALITY SUPERVISOR DTL PCR Comment: RSV RNA absent. ----ADDITIONAL INFORMATION---- This test has been modified from the [place] ufacturer's instructions. Its performance characteristics were determi foreign by [facility] in a manner consistent with CLIA requirements. This test has not been cleared or approved by the U.S. Food and Drug Administration . Specimen Anatomical Collection Method Collection Time Receive d Time (Source) Location / / Volume Laterality Varies 03/12/2021 11:00 03/13/2021 7:12 (Nasopharynx) AM VENDOR QUALITY SUPERVISOR AM VENDOR QUALITY SUPERVISOR Nunu Sanches P.A.-C. MSumaS. LAB MICROBIOLOGY - GENE RAL ORDERABLES Performing Organization Address City/[facility]/ZIP Code Phon e Number [facility] - [address] [place], [place] [address] [facility] [place] [address] [facility] [address] [facility] SARS Coronavirus-2 RNA, V Symptomatic (03/12/2021 11:00 AM VENDOR QUALITY SUPERVISOR) [facility] Method Time Signature SARS-CoV-2 Swab, 03/12/2021 [facility] Specimen Nasopharynx 7:30 PM VENDOR QUALITY SUPERVISOR Source SARS CoV-2 Undetected Undetected 03/12/2021 [facility] RNA, TMA 7:30 PM VENDOR QUALITY SUPERVISOR Comment: SARS-CoV-2 RNA absent. This result does not rule out COVID-19 in the patient, as the sensitivity of the test depends o n the timing of the specimen collection and the quality of the specim en. Result should be correlated with patient's history and clinical presentat ion. ----ADDITIONAL INFORMATION---- This molecular amplification test was pe rformed using the Aptima SARS-CoV-2 assay ([employer] on the [employer] tem under emergency use authorization (EUA) by the U.S. Food and Drug Administ ration. Fact sheets for this EUA assay can be fo und at the following links: For Healthcare Providers: https://www.fd a.gov/media/956362/download For Patients: https://www.fda.gov/media/ 828110/download Specimen Anatomical Collection Method Collection Time Receive d Time (Source) Location / / Volume Laterality Varies 03/12/2021 11:00 03/12/2021 (Nasopharynx) AM VENDOR QUALITY SUPERVISOR 11:05 AM VENDOR QUALITY SUPERVISOR Nunu Sanches P.A.-C., M.S. LAB MICROBIOLOGY - GENE RAL ORDERABLES Performing Organization Address City/[facility] Code Phon e Number [facility]- [facility] [place] [address] [place] [address] System in [place] [address] [place], [place] [address] [place] ARTL CATH/CNULA MONITOR PERC, LDA ANE ARTERIAL LINE INSERTION (03/12/2021 10:45 AM VENDOR QUALITY SUPERVISOR) Narrative Barrera To M.D. - 2020 10:45 AM VENDOR QUALITY SUPERVISOR Barrera To M.D. ? 03/12/2021 ??6:09 PM [...] SURGICAL ORDERABLES Patient Status (03/12/2021 7:10 AM VENDOR QUALITY SUPERVISOR) P athologist Signature FIO2 0.50 0.21=AIR 03/12/2021 7:37 [place] AM VENDOR QUALITY SUPERVISOR Specimen Anatomical Collection Method Collection Time Receive d Time (Source) Location / / Volume Laterality Blood 03/12/2021 7:10 AM 7:30 VENDOR QUALITY SUPERVISOR AM VENDOR QUALITY SUPERVISOR Nunu Sanches P.A.-C., M.S. LAB BLOOD NON ADD-ON Performing Organization Address City/State/ZIP Code Phon e Number [facility]- [facility] [place] [address] [place] [address] System in [place] [address] [place] [address] (ABNORMAL) Blood Gas with Coox, Arterial (03/12/2021 7:10 AM VENDOR QUALITY SUPERVISOR) P athologist Signature P O2 77 (L) 83 - 108 03/12/2021 [place] mm Hg 7:37 AM VENDOR QUALITY SUPERVISOR P CO2 20 (CL) 32 - 45 mm 03/12/2021 [place] Hg 7:37 AM VENDOR QUALITY SUPERVISOR pH 7.53 (H) 7.35 - 03/12/2021 [place] 7.45 pH 7:37 AM VENDOR QUALITY SUPERVISOR Base Excess -5 (L) -2 - 3 03/12/2021 [place] mmol/L 7:37 AM VENDOR QUALITY SUPERVISOR HCO3 17 (L) 22 - 26 03/12/2021 [place] mmol/L 7:37 AM VENDOR QUALITY SUPERVISOR Hemoglobin, B 7.6 (L) 11.6 - 03/12/2021 [facility] 15.0 g/dL 7:37 AM VENDOR QUALITY SUPERVISOR O2Hb 95.2 94.0 - 03/12/2021 [place] 98.0 % 7:37 AM VENDOR QUALITY SUPERVISOR COHb 1.6 <3.0 % 03/12/2021 [facility] 7:37 AM VENDOR QUALITY SUPERVISOR MetHb 0.0 <1.5 % 03/12/2021 [facility] 7:37 AM VENDOR QUALITY SUPERVISOR CtO2 10.3 (L) 18.0 - 03/12/2021 [facility] 21.0 vol % 7:37 AM VENDOR QUALITY SUPERVISOR Arterial R-Radial 03/12/2021 [place] Sample Site 7:37 AM VENDOR QUALITY SUPERVISOR Specimen Anatomical Collection Method Collection Time Receive d Time (Source) Location / / Volume Laterality Blood (Blood, 03/12/2021 7:10 AM 03/12/20 7:30 Arterial) VENDOR QUALITY SUPERVISOR AM VENDOR QUALITY SUPERVISOR Nunutamika Sanches P.A.-C., M.S. LAB BLOOD NON ADD-ON Performing Organization Address City/State/ZIP Code Phon e Number [facility]- [address] [place] [phone] [place] [address] System in [address] (ABNORMAL) Lactate, B (03/12/2021 7:10 AM VENDOR QUALITY SUPERVISOR) P athologist Signature Lactate, B 9.3 (H) 0.5 - 2.2 03/12/2021 [place] mmol/L 7:38 AM VENDOR QUALITY SUPERVISOR Specimen Anatomical Collection Method Collection Time Receive d Time (Source) Location / / Volume Laterality Blood 03/12/2021 7:10 AM 7:30 VENDOR QUALITY SUPERVISOR AM VENDOR QUALITY SUPERVISOR Nunu Sanches P.A.-C., M.S. LAB BLOOD NON ADD-ON Performing Organization Address City/[facility] Phon e Number [facility]- [address] [place] [phone] [place] [address] Bacteria / Raudel Culture, Blood #2 (03/12/2021 7:10 AM VENDOR QUALITY SUPERVISOR) Patholo gist Method Time Signature Bacteria/Adriana No growth 03/17/2021 [place] da Culture, after 5 8:05 AM VENDOR QUALITY SUPERVISOR Blood day/s of incubation. Specimen (Source) Anatomical Collection Method Collection Time Re ceived Time Location / / Volume Laterality Blood (Blood, 03/12/2021 7:10 03/12/2021 7:31 Peripheral Draw) AM VENDOR QUALITY SUPERVISOR AM VENDOR QUALITY SUPERVISOR Comment: Specimen Source Site: Blood Nunu Sanches P.A.-C., M.S. LAB MICROBIOLOGY - GENE RAL ORDERABLES Performing Organization Address City/[facility]/ZIP [facility] Phon e Number [facility]- [address] [place] [phone] [place] [address] System [address] DX Chest Portable 1 View (03/12/2021 6:24 AM VENDOR QUALITY SUPERVISOR) Anatomical Region Laterality Modality Chest, Thoracic RST LOS, Thoracic ARZ LOS, Thoracic N/A Digital Radiography FLA LOS Specimen (Source) Anatomical Collection Method Collection Time Re ceived Time Location / / Volume Laterality 03/12/2021 7:25 AM VENDOR QUALITY SUPERVISOR Impressions 03/12/2021 7:27 AM VENDOR QUALITY SUPERVISOR Large right pleural effusion and right-sided consolidation. Centrally obstructing process within [facility] nchus is not excluded. Narrative 03/12/2021 7:27 AM VENDOR QUALITY SUPERVISOR EXAM: DX CHEST PORTABLE 1 VIEW COMPARISON: [...] right-s ided consolidation. Centrally obstructing process within [facility] nchus is not excluded. Nunu Sanches P.A.-C., M.S. IMG DIAGNOSTIC IMAGING PROCEDURES (ABNORMAL) Microscopic Automated (03/12/2021 6:23 AM VENDOR QUALITY SUPERVISOR) P athologist Signature White Blood Occ-3 /hpf 03/12/2021 [place] Cells 7:18 AM VENDOR QUALITY SUPERVISOR Comment: ----REFERENCE VALUE---- Males: 0-3 Females: 0-10 Unknown: 0-10 Red Blood Cells 3-10 (A) 0 - 2 /hpf 03/12/2021 7:18 AM VENDOR QUALITY SUPERVISOR [facility] Dysmorphic Red Blood Cells <=25 <=25 % 03/12/2021 7: 18 AM VENDOR QUALITY SUPERVISOR [place] Hyaline Casts 4-10 /lpf 03/12/2021 7:18 AM VENDOR QUALITY SUPERVISOR MKT O Squamous Cells Occ-3 /hpf 03/12/2021 7:18 AM VENDOR QUALITY SUPERVISOR MK [place] Specimen Anatomical Collection Method Collection Time Receive d Time (Source) Location / / Volume Laterality Urine 03/12/2021 6:23 AM 6:47 VENDOR QUALITY SUPERVISOR AM VENDOR QUALITY SUPERVISOR Nunu Sanches P.A.-C., M.S. LAB URINE ORDERABLES Performing Organization Address City/State/ZIP Code Phon e Number [facility]- [address] [place] [phone] [place] [address] System [place] [address] MRSA PCR, Nasal (03/12/2021 6:23 AM VENDOR QUALITY SUPERVISOR) athologist Signature MRSA Screen, Negative Negative 03/12/2021 [place] Nasal by PCR 10:50 AM VENDOR QUALITY SUPERVISOR Specimen Anatomical Collection Method Collection Time Receive d Time (Source) Location / / Volume Laterality Swab (Nares) 03/12/2021 6:23 AM 6:47 VENDOR QUALITY SUPERVISOR AM VENDOR QUALITY SUPERVISOR Nunu Sanches P.A.-C., M.S. LAB MICROBIOLOGY - GENE RAL ORDERABLES Performing Organization Address City/[facility] Code Phon e Number [facility]- [address] [place] [phone] [place] [address] System in [address] (ABNORMAL) Urinalysis with Microscopic if Indicated (03/12/2021 6:23 AM VENDOR QUALITY SUPERVISOR) athologist Signature Source Urine, 03/12/2021 [place] Urine, 6:56 AM VENDOR QUALITY SUPERVISOR Clean Catch Clarity Clear Clear 03/12/2021 [place] 6:56 AM VENDOR QUALITY SUPERVISOR Color Priscilla 03/12/2021 [place] 6:56 AM VENDOR QUALITY SUPERVISOR Comment: ----REFERENCE VALUE---- Colorless Yellow Priscilla Blood Negative Negative 03/12/2021 6:56 AM VENDOR QUALITY SUPERVISOR [place] Nitrite Negative Negative 03/12/2021 6:56 AM VENDOR QUALITY SUPERVISOR [place] Leukocyte Esterase Small (A) Negative 03/12/2021 6:56 AM CS T [place] Protein Trace mg/dL 03/12/2021 6:56 AM VENDOR QUALITY SUPERVISOR [place] Comment: ----REFERENCE VALUE---- Negative Trace Glucose Negative Negative mg/dL 03/12/2021 6:56 AM VENDOR QUALITY SUPERVISOR [place] Ketone Trace (A) Negative mg/dL 03/12/2021 6:56 AM VENDOR QUALITY SUPERVISOR [place] Bilirubin Moderate (A) Negative 03/12/2021 6:56 AM VENDOR QUALITY SUPERVISOR [place] pH 6.0 5.0 - 8.0 03/12/2021 6:56 AM VENDOR QUALITY SUPERVISOR [place] Specific [place] 1.016 1.001 - 1.035 03/12/2021 6:56 AM VENDOR QUALITY SUPERVISOR [place] Urobilinogen 1.0 0.2 - 1.0 mg/dL 03/12/2021 6:56 AM CS T [place] Specimen Anatomical Collection Method Collection Time Receive d Time (Source) Location / / Volume Laterality Urine (Urine, 03/12/2021 6:23 AM 03/12/20 6:47 Clean Catch) VENDOR QUALITY SUPERVISOR AM VENDOR QUALITY SUPERVISOR Nunu Sanches P.A.-C., M.S. LAB URINE ORDERABLES Performing Organization Address City/State/ZIP Code Phon e Number [facility]- [address] [place] [phone] [place] [address] System in [place] [address] [place] [address] (ABNORMAL) Drug Screen Urine (03/12/2021 6:23 AM VENDOR QUALITY SUPERVISOR) athologist Signature Amphetamines, Negative Negative 03/12/2021 [place] U 7:18 AM VENDOR QUALITY SUPERVISOR Comment: ----ADDITIONAL INFORMATION---- Manager Night's Cutoff: 500 ng/mL Barbiturates, U Negative Negative 03/12/2021 7:18 AM VENDOR QUALITY SUPERVISOR M K[place] Comment: ----ADDITIONAL INFORMATION---- Manager Night's Cutoff: 200 ng/mL Benzodiazepines, U Negative Negative 03/12/2021 7:18 AM CS T [place] Comment: ----ADDITIONAL INFORMATION---- Manager Night's Cutoff: 150 ng/mL Buprenorphine, U Negative Negative 03/12/2021 7:18 AM VENDOR QUALITY SUPERVISOR [place] Comment: ----ADDITIONAL INFORMATION---- Manager Night's Cutoff: 10 ng/mL Cocaine, U Negative Negative 03/12/2021 7:18 AM VENDOR QUALITY SUPERVISOR [facility] Comment: ----ADDITIONAL INFORMATION---- Manager Night's Cutoff: 150 ng/mL Methadone, U Negative Negative 03/12/2021 7:18 AM VENDOR QUALITY SUPERVISOR [place] Comment: ----ADDITIONAL INFORMATION---- Manager Night's Cutoff: 200 ng/mL Methamphetamines, U Negative Negative 03/12/2021 7:[address] [place] Comment: ----ADDITIONAL INFORMATION---- Manager Night's Cutoff: 500 ng/mL Opiates, U Negative Negative 03/12/2021 7:18 AM VENDOR QUALITY SUPERVISOR [place] Comment: ----ADDITIONAL INFORMATION---- Manager Night's Cutoff: 100 ng/mL Oxycodone, U Unconfirmed Positive (A) Negative 03/12/2021 7 :18 AM VENDOR QUALITY SUPERVISOR [place] Comment: ----ADDITIONAL INFORMATION---- Manager Night's Cutoff: 100 ng/mL Phencyclidine, U Negative Negative 03/12/2021 7:18 AM VENDOR QUALITY SUPERVISOR [place] Comment: ----ADDITIONAL INFORMATION---- Manager Night's Cutoff: 25 ng/mL Propoxyphene, U Negative Negative 03/12/2021 7:18 AM VENDOR QUALITY SUPERVISOR M K[place] Comment: ----ADDITIONAL INFORMATION---- Manager Night's Cutoff: 300 ng/mL Tetrahydrocannabinol, U Unconfirmed Positive Negative 03/12 7:18 AM [place] (A) VENDOR QUALITY SUPERVISOR Comment: ----ADDITIONAL INFORMATION---- Manager Night's Cutoff: 50 ng/mL Tricyclic Antidepressants, U Negative Negative 03/12/2021 7:18 AM VENDOR QUALITY SUPERVISOR [place] Comment: ----ADDITIONAL INFORMATION---- Manager Night's Cutoff: 300 ng/mL THE ABOVE DRUG SCREEN PANEL IS FOR MED ICAL PURPOSES ONLY Specimen Anatomical Collection Method Collection Time Receive d Time (Source) Location / / Volume Laterality Urine (Urine, 03/12/2021 6:23 AM 03/12/20 6:47 Clean Catch) VENDOR QUALITY SUPERVISOR AM VENDOR QUALITY SUPERVISOR Nunu Sanches P.A.-C., M.S. LAB URINE ORDERABLES Performing Organization Address City/State/ZIP Code Phon e Number [facility]- [address] [place] [phone] [place] [address] HCV Ab w/Reflex to HCV PCR, Serum (03/12/2021 5:58 AM VENDOR QUALITY SUPERVISOR) P athologist Signature HCV Ab, S Negative Negative 03/13/2021 [facility] 9:25 AM VENDOR QUALITY SUPERVISOR Comment: Qserno-ef-tyazdx ratio is <1.00 . Specimen (Source) Anatomical Collection Method Collection Time Re ceived Time Location / / Volume Laterality Blood (Blood, 03/12/2021 5:58 03/13/2021 7:17 Peripheral Draw) AM VENDOR QUALITY SUPERVISOR AM VENDOR QUALITY SUPERVISOR Ivan Lazo D.O. LAB MICROBIOLOGY - BLOOD ORD ERABLES Performing Organization Address City/[facility]/ZIP Code Phon e Number [facility] [address] [place] [phone] [address] [facility] [place] [address] Laboratory Medicine and Pathology [address] [place] [address] Dr. CHAPPELL Hepatitis A IgM Ab, Serum (03/12/2021 5:58 AM VENDOR QUALITY SUPERVISOR) athologist Signature Hepatitis A Negative Negative 03/13/2021 [facility] IgM Ab, S 9:50 AM VENDOR QUALITY SUPERVISOR Comment: Result does not exclude the possibility of exposure to hepatitis A virus. ??Antibody level duri ng early infection stage may be below the limit of detectio n of the assay. Specimen (Source) Anatomical Collection Method Collection Time Re ceived Time Location / / Volume Laterality Blood (Blood, 03/12/2021 5:58 03/13/2021 7:18 Peripheral Draw) AM VENDOR QUALITY SUPERVISOR AM VENDOR QUALITY SUPERVISOR Ivan Lazo D.O. LAB MICROBIOLOGY - BLOOD ORD ERABLES Performing Organization Address City/[facility]/ZIP Code Phon e Number [facility] [address] [place] [address] [address] [facility] [place] [address] Laboratory Medicine and Pathology [address] [place] [address] Dr. CHAPPELL Hepatitis B Core IgM Ab (03/12/2021 5:58 AM VENDOR QUALITY SUPERVISOR) athologist [facility] IgM Ab, S Negative Negative 03/13/2021 [facility] 9:12 AM VENDOR QUALITY SUPERVISOR Specimen (Source) Anatomical Collection Method Collection Time Re ceived Time Location / / Volume Laterality Blood (Blood, 03/12/2021 5:58 03/13/2021 7:17 Peripheral Draw) AM VENDOR QUALITY SUPERVISOR AM VENDOR QUALITY SUPERVISOR Ivan Lazo D.O. LAB MICROBIOLOGY - BLOOD ORD ERABLES Performing Organization Address City/State/ZIP Code Phon e Number [facility] [address] [place] [address] [address] [facility] [place] [place] [address] Laboratory Medicine and Pathology [address] [place] Hepatitis B Surface Antigen (03/12/2021 5:58 AM VENDOR QUALITY SUPERVISOR) [facility] gist Method Time Signature HBs Antigen, Nonreactive Nonreactive 03/12/2021 [place] S 7:43 AM VENDOR QUALITY SUPERVISOR Comment: Biotin has been identified by the [...] 03/12/2021 5:58 03/12/2021 6:10 Peripheral Draw) AM VENDOR QUALITY SUPERVISOR AM VENDOR QUALITY SUPERVISOR Ivan Lazo D.OSuma LAB MICROBIOLOGY - BLOOD ORD ERABLES Performing Organization Address City/[facility]/ZIP [facility] Phon e Number [address] [address] [place] [address] (ABNORMAL) Ammonia (03/12/2021 5:58 AM VENDOR QUALITY SUPERVISOR) athologist Signature Ammonia, P 127 (H) <=51 03/12/2021 [place] mcmol/L 6:33 AM VENDOR QUALITY SUPERVISOR Specimen Anatomical Collection Method Collection Time Receive d Time (Source) Location / / Volume Laterality Blood (Blood, 03/12/2021 5:58 AM 03/12/20 21 6:09 Venous) VENDOR QUALITY SUPERVISOR AM VENDOR QUALITY SUPERVISOR Ivan Kruger.OSuma LAB BLOOD NON ADD-ON Performing Organization Address [facility] Phon e Number [address] [address] [place] [address] (ABNORMAL) Calcium, Ionized (03/12/2021 5:57 AM VENDOR QUALITY SUPERVISOR) athologist Signature Calcium, 3.74 (L) 4.65 - 03/12/2021 [place] Ionized, B 5.30 mg/dL 6:21 AM VENDOR QUALITY SUPERVISOR Specimen Anatomical Collection Method Collection Time Receive d Time (Source) Location / / Volume Laterality Blood 03/12/2021 5:57 AM 6:10 VENDOR QUALITY SUPERVISOR AM VENDOR QUALITY SUPERVISOR Nunu Sanches P.A.-C., M.S. LAB BLOOD NON ADD-ON Performing Organization Address City/[facility]/ZIP Code Phon e Number [address] [address] [place] [address] System in [address] (ABNORMAL) pH (03/12/2021 5:57 AM VENDOR QUALITY SUPERVISOR) P athologist Signature pH 7.63 (H) 7.35 - 7.45 03/12/2021 [place] pH 6:21 AM VENDOR QUALITY SUPERVISOR Specimen Anatomical Collection Method Collection Time Receive d Time (Source) Location / / Volume Laterality Blood 03/12/2021 5:57 AM 6:10 VENDOR QUALITY SUPERVISOR AM VENDOR QUALITY SUPERVISOR Nunu Sanches P.A.-C., M.S. LAB HISTORICAL ORDERS Performing Organization Address City/[facility] Phon e Number [address] [address] [place] [address] [address] (ABNORMAL) Lactate, B (03/12/2021 5:57 AM VENDOR QUALITY SUPERVISOR) P athologist Signature Lactate, B 5.6 (H) 0.5 - 2.2 03/12/2021 [place] mmol/L 6:21 AM VENDOR QUALITY SUPERVISOR Specimen Anatomical Collection Method Collection Time Receive d Time (Source) Location / / Volume Laterality Blood 03/12/2021 5:57 AM 6:10 VENDOR QUALITY SUPERVISOR AM VENDOR QUALITY SUPERVISOR Nunu Sanches P.A.-C., M.S. LAB BLOOD NON ADD-ON Performing Organization Address City/[facility]/ZIP Code Phon e Number [address] [address] [place] [address] System in [address] S-TSH (Thyroid-Stimulating Hormone - Sensitive) (03/12/2021 5:57 AM VENDOR QUALITY SUPERVISOR) P athologist Signature TSH, Sensitive 1.1 0.3 - 4.2 03/12/2021 [facility] mIU/L 7:44 AM VENDOR QUALITY SUPERVISOR Specimen Anatomical Collection Method Collection Time Receive d Time (Source) Location / / Volume Laterality Blood (Blood, 03/12/2021 5:57 AM 03/12/20 6:10 Venous) VENDOR QUALITY SUPERVISOR AM VENDOR QUALITY SUPERVISOR Nunu Sanches P.A.-C., M.S. LAB BLOOD ADD-ON Performing Organization Address City/[facility] Phon e Number [facility]- [address] [place] [address] [facility] [place] [address] System [facility] [address] [facility] Salicylate Level (03/12/2021 5:57 AM VENDOR QUALITY SUPERVISOR) P athologist Signature Salicylate, P <0.3 <30.0 mg/dL 03/12/2021 [facility] 6:50 AM VENDOR QUALITY SUPERVISOR Specimen Anatomical Collection Method Collection Time Receive d Time (Source) Location / / Volume Laterality Blood (Blood, 03/12/2021 5:57 AM 03/12/20 6:10 Venous) VENDOR QUALITY SUPERVISOR AM VENDOR QUALITY SUPERVISOR Nunu Sanches P.A.-C., M.S. LAB BLOOD ADD-ON Performing Organization Address City/[facility] Phon e Number [facility]- [address] [place] [address] [facility] [place] [address] System in [place] [address] [facility] Acetaminophen Level (03/12/2021 5:57 AM VENDOR QUALITY SUPERVISOR) Patholo gist Method Time Signature Acetaminophen, <7 Therapeutic 03/12/2021 [facility] P Range: 10-30 6:50 AM VENDOR QUALITY SUPERVISOR mcg/mL Specimen Anatomical Collection Method Collection Time Receive d Time (Source) Location / / Volume Laterality Blood (Blood, 03/12/2021 5:57 AM 03/12/20 6:10 Venous) VENDOR QUALITY SUPERVISOR AM VENDOR QUALITY SUPERVISOR Nunu Sanches P.A.-C., M.S. LAB BLOOD ADD-ON Performing Organization Address City/[facility]/ZIP [facility] Phon e Number [facility]- [address] [place] [phone] [place] [address] System in [address] hCG (Human Chorionic Gonadotropin), Quantitative, (03/12/2021 5:57 AM VENDOR QUALITY SUPERVISOR) athologist Signature HCG, <0.5 <5 IU/L 03/12/2021 [facility] Quantitative, 6:55 AM VENDOR QUALITY SUPERVISOR , P Comment: Biotin has been identified [...] 03/12/2021 5:57 AM 03/12/20 21 6:10 Venous) VENDOR QUALITY SUPERVISOR AM VENDOR QUALITY SUPERVISOR Nunu Sanches P.A.-C., M.S. LAB BLOOD ADD-ON Performing Organization Address City/[facility] Code Phon e Number [facility]- [address] [place] [phone] [place] [address] System in [address] Ethanol Level, Serum (03/12/2021 5:57 AM VENDOR QUALITY SUPERVISOR) athologist Signature Ethanol, P <10 <10 mg/dL 03/12/2021 6:50 [place] AM VENDOR QUALITY SUPERVISOR Specimen Anatomical Collection Method Collection Time Receive d Time (Source) Location / / Volume Laterality Blood (Blood, 03/12/2021 5:57 AM 03/12/20 21 6:10 Venous) VENDOR QUALITY SUPERVISOR AM VENDOR QUALITY SUPERVISOR Nunu Sanches P.A.-C., M.S. LAB BLOOD NON ADD-ON Performing Organization Address City/[facility]/ZIP [facility] Phon e Number [facility]- [address] [place] [phone] [place] [address] [address] (ABNORMAL) NT-Pro B-Type Natriuretic Peptide (BNP) (03/12/2021 5:57 AM VENDOR QUALITY SUPERVISOR) athologist Signature NT-Pro BNP 1032 (H) <=140 pg/mL 03/12/2021 [facility] 7:44 AM VENDOR QUALITY SUPERVISOR Comment: NT-proBNP values less than 300 pg/mL [...] 03/12/2021 5:57 AM 03/12/20 21 6:10 Venous) VENDOR QUALITY SUPERVISOR AM VENDOR QUALITY SUPERVISOR Nunu Sanches P.A.-C., M.S. LAB BLOOD ADD-ON Performing Organization Address City/State/ZIP Code Phon e Number [facility]- [address] [place] [phone] [place] [address] System in [address] Lipase (03/12/2021 5:57 AM VENDOR QUALITY SUPERVISOR) athologist Signature Lipase, P 18 13 - 60 U/L 03/12/2021 6:50 [place] AM VENDOR QUALITY SUPERVISOR Specimen Anatomical Collection Method Collection Time Receive d Time (Source) Location / / Volume Laterality Blood (Blood, 03/12/2021 5:57 AM 03/12/20 21 6:10 Venous) VENDOR QUALITY SUPERVISOR AM VENDOR QUALITY SUPERVISOR Nunu Sanches P.A.-C., M.S. LAB BLOOD ADD-ON Performing Organization Address City/[facility]/ZIP Code Phon e Number [facility]- [address] [place] [phone] [place] [address] (ABNORMAL) Prothrombin Time (PT) (03/12/2021 5:57 AM VENDOR QUALITY SUPERVISOR) Patholo gist Method Time Signature Prothrombin 25.3 (H) 9.4 - 12.5 03/12/2021 [facility] Time, P sec 6:26 AM VENDOR QUALITY SUPERVISOR INR 2.2 0.9 - 1.1 03/12/2021 [facility] 6:26 AM VENDOR QUALITY SUPERVISOR Comment: ----ADDITIONAL INFORMATION---- Standard intensity warfarin therapeutic range: 2.0 to 3.0 ?? High intensity warfarin therapeutic rang e: 2.5 to 3.5 Specimen Anatomical Collection Method Collection Time Receive d Time (Source) Location / / Volume Laterality Blood (Blood, 03/12/2021 5:57 AM 03/12/20 21 6:10 Venous) VENDOR QUALITY SUPERVISOR AM VENDOR QUALITY SUPERVISOR Nunu Sanches P.A.-C., M.S. LAB BLOOD ADD-ON Performing Organization Address [facility] Code Phon e Number [facility]- [address] [place] [phone] [place] [address] (ABNORMAL) Phosphorus Inorganic (03/12/2021 5:57 AM VENDOR QUALITY SUPERVISOR) P athologist Signature Phosphorus 1.9 (L) 2.5 - 4.5 03/12/2021 [facility] (Inorganic), P mg/dL 6:58 AM VENDOR QUALITY SUPERVISOR Specimen Anatomical Collection Method Collection Time Receive d Time (Source) Location / / Volume Laterality Blood (Blood, 03/12/2021 5:57 AM 03/12/20 21 6:10 Venous) VENDOR QUALITY SUPERVISOR AM VENDOR QUALITY SUPERVISOR Nunu Sanches P.A.-C., M.S. LAB BLOOD ADD-ON Performing Organization Address City/[facility]/ZIP Code Phon e Number [facility]- [address] [place] [phone] [place] [address] System in [address] (ABNORMAL) Magnesium (03/12/2021 5:57 AM VENDOR QUALITY SUPERVISOR) athologist Signature Magnesium, P 1.1 (L) 1.7 - 2.3 03/12/2021 [facility] mg/dL 6:58 AM VENDOR QUALITY SUPERVISOR Specimen Anatomical Collection Method Collection Time Receive d Time (Source) Location / / Volume Laterality Blood (Blood, 03/12/2021 5:57 AM 03/12/20 6:10 Venous) VENDOR QUALITY SUPERVISOR AM VENDOR QUALITY SUPERVISOR Nunu Sanches P.A.-C., M.S. LAB BLOOD ADD-ON Performing Organization Address City/State/ZIP Code Phon e Number [facility]- [address] [place] [phone] [place] [address] [place] [address] System in [address] (ABNORMAL) Comprehensive Metabolic Panel (03/12/2021 5:57 AM VENDOR QUALITY SUPERVISOR) athologist Signature Potassium, P 3.0 (L) 3.6 - 5.2 03/12/2021 [place] mmol/L 6:50 AM VENDOR QUALITY SUPERVISOR Sodium, P 132 (L) 135 - 145 03/12/2021 [place] mmol/L 6:50 AM [employer] Chloride, P 94 (L) 98 - 107 03/12/2021 [place] mmol/L 6:50 AM [employer]AL[employer] SUPER[employer]OR Bicarbonate, P 17 (L) 22 - 29 03/12/2021 [place] mmol/L 6:50 AM [employer]PER[employer] Anion Gap, P 21 (H) 7 - 15 03/12/2021 [place] 6:50 AM [employer] SUPER[employer]OR BUN (Blood Urea 8 6 - 21 03/12/2021 [place] Nitrogen), P mg/dL 6:50 AM [employer] SUPER[employer]OR Creatinine 0.64 0.59 - 03/12/2021 [place] 1.04 mg/dL 6:50 AM V[employer] SUPER[employer]OR eGFR-Black/Afri >90 >=60 03/12/2021 [place] can [place] mL/min/BSA 6:50 AM V[employer]OR [employer]ALITY SUPERVISOR Comment: ----ADDITIONAL INFORMATION---- Estimated GFR calculated using the 2009 CKD_EPI creatinine equation. eGFR Non-Black/ >90 >=60 mL/min/BSA 03/12/2021 6:50 AM V[employer]OR [employer]ALITY SUPERVISOR [facility] Comment: ----ADDITIONAL INFORMATION---- Estimated GFR calculated using the 2009 CKD_EPI creatinine equation. Calcium, Total, P 8.0 (L) 8.6 - 10.0 mg/dL 03/12/2021 6:50 AM V[employer]PER[employer]OR [facility] Glucose, P 118 70 - 140 mg/dL 03/12/2021 6:50 AM V[employer]AL[employer] SUPER[employer]OR M [facility] Protein, Total, P 5.6 (L) 6.3 - 7.9 g/dL 03/12/2021 6:50 A M [employer] [facility] Albumin, P 2.9 (L) 3.5 - 5.0 g/dL 03/12/2021 6:50 AM V[employer] SUPER[employer]OR M [facility] Aspartate Aminotransferase 45 (H) 8 - 43 U/L 03/12/2021 6 :50 AM V[employer]AL[employer] SUPER[employer]OR [place] (AST), P Alkaline Phosphatase, P 126 (H) 35 - 104 U/L 03/12/2021 6: 50 AM [employer] SUPER[employer]OR [facility] Alanine Aminotransferase 13 7 - 45 U/L 03/12/2021 6:5 0 AM [employer]AL[employer] SUPER[employer]OR [place] (ALT), P Bilirubin, Total, P 6.6 (H) <=1.2 mg/dL 03/12/2021 6:50 AM V[employer] SUPER[employer]OR [facility] Specimen Anatomical Collection Method Collection Time Receive d Time (Source) Location / / Volume Laterality Blood (Blood, 03/12/2021 5:57 AM 03/12/20 6:10 Venous) [employer]OR AM [employer] SUPER[employer]OR Nunu Sanches P.A.-C., M.S. LAB BLOOD ADD-ON Performing Organization Address City/State/ZIP Code Phon e Number [facility]- [address] [place] [id number] [place] [address] System in [address] (ABNORMAL) CBC without Differential (03/12/2021 5:57 AM VENDOR QUALITY SUPERVISOR) [facility] gist Method Time Signature Hemoglobin 7.7 (L) 11.6 - 03/12/2021 [place] 15.0 g/dL 6:26 AM V[employer] SUPER[employer]OR Hematocrit 22.6 (L) 35.5 - 03/12/2021 [place] 44.9 % 6:26 AM V[employer]AL[employer] SUPER[employer]OR Erythrocytes 2.12 (L) 3.92 - 03/12/2021 [place] 5.13 6:26 AM V[employer]OR [employer]ALITY SUPER[employer]OR x10(12)/L MCV 106.6 (H) 78.2 - 03/12/2021 [place] 97.9 fL 6:26 AM V[employer] SUPER[employer]OR RBC Distrib Width 15.7 12.2 - 03/12/2021 [place] 16.1 % 6:26 AM V[employer]AL[employer] SUPER[employer]OR Platelet Count 144 (L) 157 - 371 03/12/2021 [place] x10(9)/L 6:26 AM V[employer]OR Leukocytes 12.7 (H) 3.4 - 9.6 03/12/2021 [place] x10(9)/L 6:26 AM V[employer]AL[employer] SUPER[employer]OR Specimen Anatomical Collection Method Collection Time Receive d Time (Source) Location / / Volume Laterality Blood (Blood, 03/12/2021 5:57 AM 03/12/20 6:10 Venous) V[employer]AL[employer] SUPER[employer]OR AM V[employer] SUPERVISOR Nunu Sanches P.A.-C., M.S. LAB BLOOD ADD-ON Performing Organization Address [facility] Phon e Number [address] [id number] [place] [address] Bacteria / Raudel Culture, Blood #1 (03/12/2021 5:57 AM VENDOR QUALITY SUPERVISOR) Patholo gist Method Time Signature Bacteria/Adriana No growth 03/17/2021 [place] da Culture, after 5 7:05 AM V[employer]AL[employer] SUPER[employer]OR Blood day/s of incubation. Specimen (Source) Anatomical Collection Method Collection Time Re ceived Time Location / / Volume Laterality Blood (Blood, 03/12/2021 5:57 03/12/2021 6:10 Peripheral Draw) AM V[employer]ALITY SUPERVISOR AM V[employer]OR [employer]ALITY SUPERVISOR Comment: Specimen Source Site: Blood Nunu Sanches P.A.-C., M.S. LAB MICROBIOLOGY - GENE RAL ORDERABLES Performing Organization Address [facility] Phon e Number [address] [phone] [place] [address] Glucose, POCT (03/12/2021 5:48 AM VENDOR QUALITY SUPERVISOR) P athologist Signature Glucose, POCT, 120 70 - 140 03/12/2021 [facility] B mg/dL 5:48 AM V[employer]OR [employer]ALITY SUPERVISOR Specimen Anatomical Collection Method Collection Time Receive d Time (Source) Location / / Volume Laterality Blood 03/12/2021 5:48 AM 7:25 V[employer]OR [employer]ALITY SUPERVISOR AM VENDOR QUALITY SUPERVISOR Generic Rals LAB POCT ORDERABLES-MANUAL Performing Organization Address City/State/ZIP Code Phon e Number [facility]- [address] [place] [phone] [place] [address] System in [place] [address] [place] [address] documented in this encounter Visit Diagnoses Diagnosis Change Mental Status - Primary Cirrhosis Alcoholic (HCC) Acute Respiratory Failure (HCC) Anemia Macrocytic Patent Foramen Ovale (HCC) Alcohol Use Unspecified With Unspecified Alcohol Induced Disorder (HCC) Cirrhosis Alcoholic (HCC) Cirrhosis Alcoholic (HCC) Hypertension Portal (HCC) documented in this encounter Admitting Diagnoses Diagnosis Change Mental Status documented in this encounter Administered Medications Inactive Administered Medications - up to 3 most recent administrations Medication Order MAR Action Action Date Dose Rate Site acetaminophen tablet 650 mg Given 03/19/2021 5:57 PM [employer]PER[employer]OR 650 mg (TYLENOL) 650 mg, oral, Once, On Wed03/19/21 at 1800, For 1 dose albumin human 25 % injection 25 g New Bag 03/19/2021 6:39 AM [employer] SUPER[employer]OR 25 g 25 g, intravenous, Every 6 hours scheduled, First dose on Wed03/12/21 at 1400, If no infusion rate specified: Administer the 25% solution at 100 mL/hr New Bag 03/19/2021 12:15 AM V[employer]AL[employer] SUPER[employer]OR 25 g New Bag 03/18/2021 6:32 PM V[employer]AL[employer] SUPER[employer]OR 25 g albumin human 5 % injection 12.5 g New Bag 03/12/2021 8:49 AM V[employer]AL[employer] SUPERVISOR 12.5 g 12.5 g, intravenous, Every 1 hour, First dose on Wed03/12/21 at 0815, For 2 doses, If no infusion rate specified: Administer the 5% solution at 999 mL/hr or less if ICU/shock, otherwise infuse at 250 mL/hr. New Bag 03/12/2021 8:48 AM V[employer]AL[employer] SUPERVISOR 12.5 g albumin human 5 % injection 25 g New Bag 03/13/2021 7:30 PM V[employer]ALITY SUPERVISOR 25 g 250 mL/hr 25 g, intravenous, Once, On Luz Marina 03/13/21 at 1900, For 1 dose, If no infusion rate specified: Administer the 5% solution at 999 mL/hr or less if ICU/shock, otherwise infuse at 250 mL/hr. calcium chloride in NaCl 0.9% IVPB 1 g New Bag 03/12/2021 2:06 PM V[employer]AL[employer] SUPERVISOR 1 g 240 mL/hr 1 g, intravenous, at 240 mL/hr, Administer over 15 Minutes, Once, On Wed03/12/21 at 1245, For 1 dose, Infuse each gram over at least 15 minutes. calcium gluc in NaCl, iso-osm IVPB 2 g New Bag 03/16/2021 5:53 AM V[employer]ALITY SUPERVISOR 2 g 400 mL/hr 2 g, intravenous, at 400 mL/hr, Administer over 15 Minutes, Once, On Wed03/16/21 at 0530, For 1 dose calcium gluconate in NaCl (iso-osm) New Bag 03/12/2021 8:03 AM V[employer]ALITY SUPERVISOR 1 g 200 mL/hr IVPB 1 g 1 g, intravenous, at 200 mL/hr, Administer over 15 Minutes, Once, On Wed03/12/21 at 0730, For 1 dose cefTRIAXone injection 1 g (ROCEPHIN) Given 03/19/2021 9:08 AM V[employer]OR [employer]ALITY SUPERVISOR 1 g 1 g, intravenous, Daily, First dose (after last modification) on Wed03/19/21 at 0900, If needed, reconstitute vial per package insert instructions. See IVAG for administration guidelines. , Drug Monitoring Program: Pharmacist to adjust medication dosing based on indication and drug clearance factors., Indications: sbp prophylaxis cefTRIAXone injection 2 g (ROCEPHIN) Given 03/18/2021 8:48 AM V[employer]OR QUALITY SUPERVISOR 2 g 2 g, intravenous, Daily, First dose (after last modification) on Wed03/18/21 at 0900, If needed, reconstitute vial per package insert instructions. See IVAG for administration guidelines. , Drug Monitoring Program: Pharmacist to adjust medication dosing based on indication and drug clearance factors., Indications: sbp prophylaxis ciprofloxacin tablet 500 mg (CIPRO) Given 03/24/2021 6:18 AM V[employer]OR [employer]ALITY SUPERVISOR 500 mg 500 mg, oral, Daily before breakfast, First dose on Luz Marina 03/20/21 at 0700, Take 2 hours before or 6 hours after antacids containing magnesium or aluminum, sucralfate, didanosine, polymeric phosphate binders, or products containing calcium, iron, or zinc., Drug Monitoring Program: Pharmacist to adjust medication dosing based on indication and drug clearance factors., Indications: Prophylaxis, medical Given 03/23/2021 6:34 AM V[employer]OR QUALITY SUPERVISOR 500 mg Given 03/22/2021 7:02 AM V[employer]OR QUALITY SUPERVISOR 500 mg dexmedeTOMIDine 4 mcg/mL Rate/Dose Change 03/14/2021 9:18 0.2 mcg/k g/hr 2.71 mL/hr in NaCl 0.9% 100 mL AM [employer]AL[employer] SUPERVISOR infusion (PRECEDEX) 0.2-1.5 mcg/kg/hr ? 54.2 kg [...] care unit Rate/Dose Verify 03/14/2021 9:00 AM V[employer]AL[employer] SUPERVISOR 0.4 mcg/kg/hr 5.42 mL/hr Rate/Dose Change 03/14/2021 8:53 AM V[employer]OR [employer]ALITY SUPERVISOR 0.4 mcg/kg/hr 5.42 mL/hr doxycycline 100 mg in NaCl 0.9% New Bag 03/12/2021 9:13 PM V[employer]OR [employer]ALITY SUPERVISOR 100 mg 100 mL/hr IVPB (VIBRAMYCIN) 100 mg, intravenous, at 100 mL/hr, Administer over 60 Minutes, Every 12 hours scheduled, First dose on Wed03/12/21 at 0900, Mini-Bag Plus bag, Indications: Intra-abdominal infection, community acquired, Respiratory tract infection, healthcare associated New Bag 03/12/2021 8:59 AM V[employer]OR [employer]ALITY SUPERVISOR 100 mg 100 mL/hr doxycycline 100 mg in NaCl 0.9% New Bag 03/17/2021 8:44 PM V[employer]ALITY SUPERVISOR 100 mg 100 mL/hr IVPB (VIBRAMYCIN) 100 mg, intravenous, at 100 mL/hr, Administer over 60 Minutes, Every 12 hours scheduled, First dose (after last modification) on Luz Marina 03/13/21 at 0900, For 5 days, Mini-Bag Plus bag, Indications: Intra-abdominal infection, community acquired, Respiratory tract infection, healthcare associated New Bag 03/17/2021 11:08 AM V[employer]OR [employer]ALITY SUPERVISOR 100 mg 100 mL/hr New Bag 03/16/2021 8:38 PM V[employer]OR QUALITY SUPERVISOR 100 mg 100 mL/hr folic acid tablet 1 mg Given 03/24/2021 8:52 AM V[employer]OR QUALITY SUPERVISOR 1 mg 1 mg, oral, Daily, First dose on Luz Marina 03/13/21 at 1230 Given 03/23/2021 8:10 AM V[employer]OR QUALITY SUPERVISOR 1 mg Given 03/22/2021 10:22 AM V[employer]OR QUALITY SUPERVISOR 1 mg furosemide injection 20 mg (LASIX) Given 03/19/2021 9:08 AM V[employer]OR QUALITY SUPERVISOR 20 mg 20 mg, intravenous, Every 24 hours scheduled, First dose on Wed03/14/21 at 1230, Adults: Doses less than 120 mg: IV push over 20 mg/minute. Doses 120 mg or greater: IVPB at 4 mg/minute. Peds/Neonates: Doses less than 120 mg over 0.5 mg/kg/minute. Doses 120 mg or greater: IVPB at 4 mg/minute. Given 03/18/2021 8:49 AM V[employer]OR QUALITY SUPERVISOR 20 mg Given 03/17/2021 10:48 AM V[employer]OR QUALITY SUPERVISOR 20 mg furosemide tablet 20 mg (LASIX) Given 03/24/2021 8:52 AM V[employer]OR QUALITY SUPERVISOR 20 mg 20 mg, oral, Daily, First dose on Luz Marina 03/20/21 at 0900 Given 03/23/2021 8:10 AM V[employer]OR QUALITY SUPERVISOR 20 mg Given 03/22/2021 10:22 AM V[employer]OR QUALITY SUPERVISOR 20 mg heparin (porcine) Given 03/15/2021 5:35 AM V[employer]OR QUALITY SUPERVISOR 5,000 Units Left Upper Arm injection 5,000 Units (Back) 5,000 Units, subcutaneous, Every 8 hours scheduled, First dose on Wed03/12/21 at 0645 Given 03/14/2021 8:40 PM V[employer]OR [employer]ALITY SUPERVISOR 5,000 Units Left Upper Arm (Back) Given 03/14/2021 2:51 PM V[employer]OR QUALITY SUPERVISOR 5,000 Units Right Lower Abdomen iohexoL 300 mg iodine/mL solution 1-200 mL Given 03/12/2021 1:50 PM V[employer]OR QUALITY SUPERVISOR 100 mL (OMNIPAQUE) 1-200 mL, intravenous, Once in imaging, contrast, Starting on Wed03/12/21 at 1346, For 1 dose, Dose per Radiant Medication Guidelines iohexoL 300 mg iodine/mL solution 1-200 mL Given 03/16/2021 2:37 AM V[employer]OR QUALITY SUPERVISOR 100 mL (OMNIPAQUE) 1-200 mL, intravenous, Once in imaging, contrast, for Ct exam, Starting on Wed03/16/21 at 0230, For 1 dose, Dose per Radiant Medication Guidelines ketamine injection (KETALAR) Given 03/12/2021 9:42 AM V[employer]ALITY SUPERVISOR 30 mg Code/trauma/sedation medication, Starting on Wed03/12/21 at 0942 ketamine injection 60 mg (KETALAR) Given 03/12/2021 9:12 AM V[employer]OR QUALITY SUPERVISOR 20 mg 60 mg, intravenous, Once, On Wed03/12/21 at 0845, For 1 dose Given 03/12/2021 8:50 AM V[employer]OR QUALITY SUPERVISOR 20 mg lactulose (CHRONULAC) 200 g in sterile Given 03/12/2021 8:18 AM V[employer]OR QUALITY SUPERVISOR 1,000 mL water 1,000 mL enema 1,000 mL, rectal, Once, On Wed03/12/21 at 0615, For 1 dose, Total dose= 1000 mL; Instill ~ 300 mL at a time, and retain for 15-20 minutes each Rectal Use Only. Refrigerate. PROTECT FROM LIGHT. lactulose solution 30 g (CHRONULAC) Given 03/24/2021 8:52 AM V[employer]ALITY SUPERVISOR 30 g 30 g, gastric tube, 3 times daily, First dose on Wed03/12/21 at 1400, Aim for 500 cc stool in 24 hours or 3-4 loose bowel movements per day Given 03/23/2021 9:49 PM V[employer]OR [employer]ALITY SUPERVISOR 30 g Given 03/23/2021 2:04 PM V[employer]OR QUALITY SUPERVISOR 30 g LORazepam injection 1 mg (ATIVAN) 1 mg, intravenous, Every 4 hours PRN, se ez, Starting on Luz Marina 03/20/21 at 2120, For intravenous use, dilute with equal volume of 0.9% NS magnesium oxide tablet 400 mg (MAG-OX) Given 03/24/2021 6:18 AM V[employer]OR QUALITY SUPERVISOR 400 mg 400 mg, oral, 2 times daily before breakfast and dinner, First dose on Wed03/23/21 at 0700 Given 03/23/2021 3:41 PM V[employer]OR QUALITY SUPERVISOR 400 mg Given 03/23/2021 6:34 AM V[employer]OR QUALITY SUPERVISOR 400 mg magnesium sulfate in D5W IVPB 1 g New Bag 03/15/2021 6:10 PM V[employer]OR QUALITY SUPERVISOR 1 g 100 mL/hr 1 g, intravenous, at 100 mL/hr, Administer over 60 Minutes, Once, On Wed03/15/21 at 1800, For 1 dose, Over 1 hours. , Monitor the following for replacement: Magnesium magnesium sulfate in water IVPB 2 g New Bag 03/12/2021 8:03 AM V[employer]OR QUALITY SUPERVISOR 2 g 25 mL/hr 2 g, intravenous, at 25 mL/hr, Administer over 120 Minutes, Once, On Wed03/12/21 at 0715, For 1 dose magnesium sulfate in water IVPB 2 g New Bag 03/15/2021 5:26 AM V[employer]OR [employer]ALITY SUPERVISOR 2 g 25 mL/hr 2 g, intravenous, at 25 mL/hr, Administer over 120 Minutes, Once, On Wed03/15/21 at 0600, For 1 dose magnesium sulfate in water IVPB 2 g New Bag 03/16/2021 5:08 AM V[employer]ALITY SUPERVISOR 2 g 25 mL/hr 2 g, intravenous, at 25 mL/hr, Administer over 120 Minutes, Once, On 03/16/21 at 0500, For 1 dose magnesium sulfate in New Bag 03/22/2021 4:18 PM V[employer]ALITY SUPERVISOR 2 g 25 mL/hr Right Antecubital water IVPB 2 g 2 g, intravenous, at 25 mL/hr, Administer over 120 Minutes, Once, On Wed03/22/21 at 1530, For 1 dose magnesium sulfate in water IVPB Rate/Dose Change 03/12/2021 4:02 PM V[employer]OR [employer]ALITY SUPERVISOR 50 mL/hr 4 g 4 g, intravenous, at 25 mL/hr, Administer over 240 Minutes, Once, On Wed03/12/21 at 1345, For 1 dose New 03/12/2021 2:27 PM V[employer]OR QUALITY SUPERVISOR 4 g 25 mL/hr magnesium sulfate in water IVPB 4 g New Bag 03/19/2021 3:40 PM V[employer]OR QUALITY SUPERVISOR 4 g 25 mL/hr 4 g, intravenous, at 25 mL/hr, Administer over 240 Minutes, Once, On Wed03/19/21 at 1000, For 1 dose, Over 4 hours. melatonin tablet 3 mg Given 03/17/2021 2:30 AM V[employer]ALITY SUPERVISOR 3 mg 3 mg, oral, Once, On Wed03/17/21 at 0230, For 1 dose melatonin tablet 6 mg Given 03/23/2021 9:49 PM V[employer]ALITY SUPERVISOR 6 mg 6 mg, oral, Daily at bedtime, First dose (after last modification) on 03/17/21 at 2100 Given 03/23/2021 12:19 AM V[employer]OR QUALITY SUPERVISOR 6 mg Given 03/22/2021 12:48 AM V[employer]OR QUALITY SUPERVISOR 6 mg multivitamin (Adult MVI) 10 mL in NaCl New Bag 03/15/2021 8:06 AM V[employer]OR QUALITY SUPERVISOR 255 mL/hr 0.9% 500 mL IVPB intravenous, at 255 mL/hr, Administer over 2 Hours, Daily, First dose on Luz Marina 03/13/21 at 0900, For 3 days, Protect from light. New Bag 03/14/2021 8:15 AM V[employer]ALITY SUPERVISOR 255 mL/hr New Bag 03/13/2021 9:40 AM V[employer]OR QUALITY SUPERVISOR 255 mL/hr NaCl 0.9% infusion Rate/Dose Verify 03/16/2021 12:00 AM 20 mL/hr 20 mL/hr 20-500 mL/hr, intravenous, [employer]PER[employer]OR Once as needed, Between Units of Blood Products, Starting on 03/15/21 at 1218, For 1 dose, Infuse at the same rate as the blood infusion until tubing cleared. Nurse may reduce rate to 20 mL/hour or as otherwise directed until next blood infusion arrives then discontinue when infusion complete. Rate/Dose Verify 03/15/2021 9:00 PM V[employer]OR QUALITY SUPERVISOR 20 mL/hr 20 mL/hr Rate/Dose Verify 03/15/2021 8:00 PM V[employer]OR QUALITY SUPERVISOR 20 mL/hr 20 mL/hr naloxone injection 0.2 [...] mL/hr mcg/mL in D5W 250 mL AM V[employer]AL[employer] SUPERVISOR infusion 0-0.3 mcg/kg/min ? 54.2 kg Dosing weight (0-60.975 mL/hr, rounded to 0-60.98 mL/hr), intravenous, Continuous, Starting on Wed03/12/21 at 1100, Protect from light and avoid extravasation, Patient Type: Sepsis, Initiate at: 0.05 mcg/kg/min, Titrate at: 0.05 mcg/kg/min. every 5 min., Wean at: 0.01 mcg/kg/min. every 5 min., Goal: Other, Goal: MAP 60-65 New Bag 03/14/2021 10:03 PM V[employer]OR [employer]ALITY SUPERVISOR 0.01 mcg/kg/min 2.03 mL/hr Rate/Dose Change 03/13/2021 12:23 PM V[employer]OR [employer]ALITY SUPERVISOR 0.02 mcg/kg/min 4.07 mL/hr norepinephrine 16 mcg/mL in NaCl Rate/Dose 03/12/2021 0.07 14. 2 0.9% 250 mL infusion Change 10:01 AM V[employer]OR [employer]ALITY SUPERVISOR mcg/kg/min mL/hr Code/trauma/sedation continuous med, Starting on 03/12/21 at 0942 Rate/Dose Change 03/12/2021 9:53 AM V[employer]OR QUALITY SUPERVISOR 0.08 mcg/kg/min 16.3 mL/hr Rate/Dose Change 03/12/2021 9:45 AM V[employer]OR QUALITY SUPERVISOR 0.1 mcg/kg/min 20.3 mL/hr octreotide 2 mcg/mL in Rate/Dose Verify 03/13/2021 8:00 AM 25 mcg/hr 12.5 mL/hr NaCl 0.9% 250 mL infusion V[employer]OR QUALITY SUPERVISOR (SandoSTATIN) 25 mcg/hr (12.5 mL/hr), intravenous, Continuous, Starting on [facility] 03/12/21 at 1000, Protect from light. Rate/Dose Verify 03/13/2021 7:00 AM V[employer]OR QUALITY SUPERVISOR 25 mcg/hr 12.5 mL/hr Rate/Dose Verify 03/13/2021 6:00 AM V[employer]OR QUALITY SUPERVISOR 25 mcg/hr 12.5 mL/hr octreotide 2 mcg/mL in Rate/Dose Verify 03/16/2021 9:00 AM 25 mcg/hr 12.5 mL/hr NaCl 0.9% 250 mL infusion V[employer] QUALITY SUPERVISOR (SandoSTATIN) 25 mcg/hr (12.5 mL/hr), intravenous, Continuous, Starting on Luz Marina 03/13/21 at 0845, For 72 hours, Protect from light. Rate/Dose Verify 03/16/2021 8:00 AM V[employer]OR QUALITY SUPERVISOR 25 mcg/hr 12.5 mL/hr Rate/Dose Verify 03/16/2021 7:00 AM V[employer]OR QUALITY SUPERVISOR 25 mcg/hr 12.5 mL/hr OLANZapine tablet 5 mg (ZyPREXA) Given 03/18/2021 9:29 PM V[employer]OR QUALITY SUPERVISOR 5 mg 5 mg, oral, Daily at bedtime, First dose on Wed03/18/21 at 1730 OLANZapine tablet 5 mg (ZyPREXA) Given 03/22/2021 12:48 AM V[employer]ALITY SUPERVISOR 5 mg 5 mg, oral, Bedtime PRN, sleep, anxiety, Starting on Wed03/19/21 at 1830 Given 03/21/2021 1:11 AM V[employer]ALITY SUPERVISOR 5 mg oxyCODONE IR tablet 5 mg (ROXICODONE) Given 03/21/2021 3:28 AM V[employer]ALITY SUPERVISOR 5 mg 5 mg, oral, Every 4 hours PRN, moderate pain or score 4-6 of 10, severe pain or score 7-10 of 10, Starting on Wed03/14/21 at 1957 Given 03/20/2021 1:56 AM V[employer] QUALITY SUPERVISOR 5 mg Given 03/16/2021 4:23 AM VENDOR QUALITY SUPERVISOR 5 mg oxyCODONE IR tablet 5 mg (ROXICODONE) Given 03/22/2021 7:02 AM VENDOR QUALITY SUPERVISOR 5 mg 5 mg, oral, Once as needed, moderate pain or score 4-6 of 10, severe pain or score 7-10 of 10, Starting on Wed03/22/21 at 0354, For [address] tablet 40 mg (PROTONIX) Given 03/24/2021 8:52 AM V[employer] QUALITY SUPERVISOR 40 mg 40 mg, oral, 2 times daily, First dose on Wed03/19/21 at 2100, Swallow whole. Do NOT crush, chew, or split tablet. Given 03/23/2021 9:49 PM V[employer]OR QUALITY SUPERVISOR 40 mg Given 03/23/2021 8:09 AM VENDOR QUALITY SUPERVISOR 40 mg pantoprazole injection 40 mg (PROTONIX) Given 03/12/2021 8:49 AM V[employer]OR QUALITY SUPERVISOR 40 mg 40 mg, intravenous, Every 24 hours scheduled, First dose on Wed03/12/21 at 0900, Administer IV push over 2 minutes. Add 10 mL NS to 40 mg vial for a final concentration of 4 mg/mL. pantoprazole injection 40 mg (PROTONIX) Given 03/19/2021 9:08 AM V[employer]OR QUALITY SUPERVISOR 40 mg 40 mg, intravenous, Every 12 hours scheduled, First dose (after last modification) on Wed03/12/21 at 2100, Administer IV push over 2 minutes. Add 10 mL NS to 40 mg vial for a final concentration of 4 mg/mL. Given 03/18/2021 8:49 AM V[employer]OR QUALITY SUPERVISOR 40 mg Given 03/17/2021 8:34 PM V[employer]OR QUALITY SUPERVISOR 40 mg phenylephrine injection Given 03/12/2021 9:46 AM V[employer]OR QUALITY SUPERVISOR 100 mcg Code/trauma/sedation medication, Starting on Wed03/12/21 at 0946 phytonadione (vitamin K1) 10 mg in New Bag 03/16/2021 8:30 AM V[employer] QUALITY SUPERVISOR 10 mg 51 mL/hr NaCl 0.9% IVPB (AQUA-MEPHYTON) 10 mg, intravenous, at 51 mL/hr, Administer over 60 Minutes, Daily, First dose on Wed03/14/21 at 1045, For 3 doses, Protect from light. New Bag 03/15/2021 9:18 AM V[employer]OR QUALITY SUPERVISOR 10 mg 51 mL/hr New Bag 03/14/2021 11:34 AM V[employer]OR QUALITY SUPERVISOR 10 mg 51 mL/hr phytonadione (vitamin K1) 10 mg in New Bag 03/16/2021 8:15 AM V[employer]OR QUALITY SUPERVISOR 10 mg 51 mL/hr NaCl 0.9% IVPB (AQUA-MEPHYTON) 10 mg, intravenous, at 51 mL/hr, Administer over 60 Minutes, Once, On 03/16/21 at 0800, For 1 dose, Protect from light. phytonadione (vitamin K1) tablet 10 mg Given 03/23/2021 11:11 AM VENDOR QUALITY SUPERVISOR 10 mg (MEPHYTON) 10 mg, oral, Once, On 03/23/21 at 1045, For 1 dose phytonadione (vitamin K1) tablet 5 mg Given 03/21/2021 8:[address] 5 mg (MEPHYTON) 5 mg, oral, Daily, First dose on Wed03/19/21 at 1300, For 3 doses Given 03/20/2021 10:15 AM V[employer] QUALITY SUPERVISOR 5 mg Given 03/19/2021 1:56 PM VENDOR QUALITY SUPERVISOR 5 mg phytonadione (vitamin K1) tablet 5 mg Given 03/22/2021 10:22 AM V[employer] QUALITY SUPERVISOR 5 mg (MEPHYTON) 5 mg, oral, Daily, First dose (after last reorder) on 03/22/21 at 0900, For 3 doses piperacillin-tazobactam in dextrose New Bag 03/13/2021 5:34 AM V[employer]ALITY SUPERVISOR 3.375 g 100 mL/hr (iso-osm) IVPB 3.375 g (ZOSYN) 3.375 g, intravenous, at 100 mL/hr, Administer over 0.5 Hours, Every 6 hours scheduled, First dose on Wed03/12/21 at 0815, Drug Monitoring Program: Pharmacist to adjust medication dosing based on indication and drug clearance factors., Indications: Intra-abdominal infection, community acquired New Bag 03/12/2021 11:36 PM V[employer]ALITY SUPERVISOR 3.375 g 100 mL/hr New Bag 03/12/2021 6:14 PM V[employer]OR QUALITY SUPERVISOR 3.375 g 100 mL/hr piperacillin-tazobactam in dextrose New Bag 03/17/2021 11:49 P M 3.375 g 100 mL/hr (iso-osm) IVPB 3.375 g (ZOSYN) V[employer]ALITY SUPERVISOR 3.375 g, intravenous, at 100 mL/hr, Administer over 0.5 Hours, Every 6 hours scheduled, First dose (after last modification) on Luz Marina 03/13/21 at 1200, For 19 doses, Drug Monitoring Program: Pharmacist to adjust medication dosing based on indication and drug clearance factors., Indications: Intra-abdominal infection, community acquired New Bag 03/17/2021 6:25 PM V[employer]OR QUALITY SUPERVISOR 3.375 g 100 mL/hr New Bag 03/17/2021 1:09 PM V[employer]OR QUALITY SUPERVISOR 3.375 g 100 mL/hr potassium chloride ER [...] tablet 40 mEq Given 03/22/2021 4:19 PM V[employer]ALITY SUPERVISOR 40 mEq (KLORCON/K-TAB) 40 mEq, oral, Once, On 03/22/21 at 1415, For 1 dose, Swallow whole. Do NOT crush, chew, or split tablet. potassium chloride ER tablet 40 mEq Given 03/23/2021 8:09 AM V[employer]ALITY SUPERVISOR 40 mEq (KLORCON/K-TAB) 40 mEq, oral, Once, On Sun /21/21 at 0800, For 1 dose, For K [...] Schedule potassium chloride IVPB 10 mEq New 03/12/2021 9:15 AM V[employer] SUPERVISOR 10 mEq 100 mL/hr 10 mEq, intravenous, at 100 mL/hr, Administer over 60 Minutes, Every 1 hour, First dose on Wed03/12/21 at 0715, For 2 doses, Peripheral Line: 10 mEq per bag over 1 hour each. New 03/12/2021 8:03 AM [employer] 10 mEq 100 mL/hr potassium chloride IVPB 10 mEq New Bag 03/14/2021 9:16 AM [employer] 10 mEq 100 mL/hr 10 mEq, intravenous, at 100 mL/hr, Administer over 60 Minutes, Every 1 hour, First dose on Wed03/14/21 at 0730, For 3 doses, Peripheral Line: 10 mEq per bag over 1 hour each. New Bag 03/14/2021 9:13 AM [employer] 10 mEq 100 mL/hr New Bag 03/14/2021 8:10 AM VENDOR QUALITY SUPERVISOR 10 mEq 100 mL/hr potassium chloride IVPB 10 mEq New 03/18/2021 4:59 PM VENDOR QUALITY SUPERVISOR 10 mEq 100 mL/hr 10 mEq, intravenous, at 100 mL/hr, Administer over 60 Minutes, Every 1 hour, First dose on Wed03/18/21 at 1200, For 4 doses, Peripheral Line: 10 mEq per bag over 1 hour each. New Bag 03/18/2021 3:41 PM VENDOR QUALITY SUPERVISOR 10 mEq 100 mL/hr New Bag 03/18/2021 2:28 PM VENDOR QUALITY SUPERVISOR 10 mEq 100 mL/hr potassium chloride IVPB 20 mEq in New Bag 03/12/2021 9:[address] 20 mEq 100 mL/hr 100 mL (premix) 20 mEq, intravenous, at 100 mL/hr, Administer over 60 Minutes, Every 1 hour, First dose on [facility] 03/12/21 at 1900, For 3 doses, Central Line with Telemetry: 20 mEq per bag over 1 hour each. New Bag 03/12/2021 8:08 PM VENDOR QUALITY SUPERVISOR 20 mEq 100 mL/hr New Bag 03/12/2021 6:57 PM VENDOR QUALITY SUPERVISOR 20 mEq 100 mL/hr potassium chloride IVPB 20 mEq in New Bag 03/13/2021 3:[address] 20 mEq 100 mL/hr 100 mL (premix) 20 mEq, intravenous, at 100 mL/hr, Administer over 60 Minutes, Every 1 hour, First dose on Luz Marina 03/13/21 at 0300, For 2 doses, Central Line with Telemetry: 20 mEq per bag over 1 hour each. New Bag 03/13/2021 2:13 AM VENDOR QUALITY SUPERVISOR 20 mEq 100 mL/hr potassium chloride IVPB 20 mEq in New Bag 03/15/2021 8:[address] 20 mEq 100 mL/hr 100 mL (premix) 20 mEq, intravenous, at 100 mL/hr, Administer over 60 Minutes, Every 1 hour, First dose on [facility] 03/15/21 at 0600, For 4 doses, Central Line with Telemetry: 20 mEq per bag over 1 hour each. New Bag 03/15/2021 7:26 AM VENDOR QUALITY SUPERVISOR 20 mEq 100 mL/hr New Bag 03/15/2021 6:28 AM VENDOR QUALITY SUPERVISOR 20 mEq 100 mL/hr potassium chloride IVPB 20 mEq in New Bag 03/15/2021 7:[address] 20 mEq 100 mL/hr 100 mL (premix) 20 mEq, intravenous, at 100 mL/hr, Administer over 60 Minutes, Every 1 hour, First dose on [facility] 03/15/21 at 1700, For 3 doses, For K 3.0-3.2 mEq/L - give total of 60 mEq, Monitor the following for replacement: Potassium, Replace Potassium per: Standard Schedule New Bag 03/15/2021 6:08 PM VENDOR QUALITY SUPERVISOR 20 mEq 100 mL/hr New Bag 03/15/2021 5:03 PM VENDOR QUALITY SUPERVISOR 20 mEq 100 mL/hr potassium chloride IVPB 20 mEq in New Bag 03/16/2021 5:[address] 20 mEq 100 mL/hr 100 mL (premix) 20 mEq, intravenous, at 100 mL/hr, Administer over 60 Minutes, Every 1 hour, First dose on 03/16/21 at 0500, For 1 dose, Central Line with Telemetry: 20 mEq per bag over 1 hour each. potassium chloride packet 40 mEq (KLOR-C ON) Given 03/13/2021 2:13 AM VENDOR QUALITY SUPERVISOR 40 mEq 40 mEq, oral, Once, On Luz Marina 03/13/21 at 0215, For 1 dose, Dissolve one packet in 4-5 ounces of water or other beverage prior to administration. potassium phosphate in NaCl Rate/Dose Verify 03/15/2021 7:00 AM VENDOR QUALITY SUPERVISOR 83.3 mL/hr 0.9% IVPB 15 mmol 15 mmol, intravenous, at 83.3 mL/hr, Administer over 3 Hours, Once, On 03/15/21 at 0600, For 1 dose New Bag 03/15/2021 6:11 AM VENDOR QUALITY SUPERVISOR 15 mmol 83.3 mL/hr potassium phosphate in NaCl Rate/Dose Verify 03/15/2021 8:00 PM VENDOR QUALITY SUPERVISOR 83.3 mL/hr 0.9% IVPB 15 mmol 15 mmol (rounded from 13.55 mmol = 0.25 mmol/kg ? 54.2 kg Dosing weight), intravenous, at 83.3 mL/hr, Administer over 3 Hours, Once, On 03/15/21 at 1800, For 1 dose, Monitor the following for replacement: Phosphorus New Bag 03/15/2021 6:17 PM VENDOR QUALITY SUPERVISOR 15 mmol 83.3 mL/hr potassium phosphate in NaCl Rate/Dose Verify 03/16/2021 9:00 AM VENDOR QUALITY SUPERVISOR 83.3 mL/hr 0.9% IVPB 15 mmol 15 mmol, intravenous, at 83.3 mL/hr, Administer over 3 Hours, Every 3 hours, First dose (after last modification) on 03/16/21 at 0500, For 2 doses New Bag 03/16/2021 8:13 AM VENDOR QUALITY SUPERVISOR 15 mmol 83.3 mL/hr Rate/Dose Verify 03/16/2021 8:00 AM VENDOR QUALITY SUPERVISOR 83.3 mL/hr potassium phosphates 30 mmol in New Bag 03/12/2021 10:50 AM CS T 30 mmol 85 mL/hr NaCl 0.9% IVPB 30 mmol, intravenous, at 85 mL/hr, Administer over 6 Hours, Once, On Wed03/12/21 at 0715, For 1 dose, Peripheral or central line. iygnvvvit-shdirj-dngpbymok 280-160-250 mg Given 2020 9:40 PM VENDOR QUALITY SUPERVISOR 2 packets per packet 2 packet (PHOS-NAK) 2 packet, oral, Every 4 hours while awake, First dose on Wed03/19/21 at 1000, For 4 doses, Monitor the following for replacement: Phosphorus Given 03/19/2021 5:57 PM VENDOR QUALITY SUPERVISOR 2 packets Given 03/19/2021 3:09 PM VENDOR QUALITY SUPERVISOR 2 packets propofoL (DIPRIVAN) 10 mg/mL injection - ADS Override Pull Starting on Wed03/12/21 at 0923, For 1 dose, Created by cabinet override propofol 10 mg/mL Rate/Dose Verify 03/14/2021 6:00 25 mcg/kg/min 8.13 mL/hr infusion (DIPRIVAN) AM VENDOR QUALITY SUPERVISOR 5-80 mcg/kg/min ? 54.2 kg Dosing weight (1.626-26.016 mL/hr, rounded to 1.63-26.02 mL/hr), intravenous, Continuous, Starting on Wed03/12/21 at 1100, Type: Titrate, Initiate at: 5 mcg/kg/min., Titrate at: 5 mcg/kg/min. every 5 min., Goal: Other, Goal: RASS -2 Rate/Dose Change 03/14/2021 4:50 AM VENDOR QUALITY SUPERVISOR 25 mcg/kg/min 8.13 mL/hr Rate/Dose Verify 03/14/2021 4:00 AM VENDOR QUALITY SUPERVISOR 30.012 mcg/kg/min 9.76 mL/h r propofoL injection (DIPRIVAN) Given 03/12/2021 9:45 AM VENDOR QUALITY SUPERVISOR 30 mg intravenous, Code/trauma/sedation medication, Starting on Wed03/12/21 at 0945 propofoL injection (DIPRIVAN) Given 03/12/2021 9:46 AM VENDOR QUALITY SUPERVISOR 30 mg intravenous, Code/trauma/sedation medication, Starting on Wed03/12/21 at 0946 rifAXIMin tablet 550 mg (XIFAXAN) Given 03/24/2021 8:52 AM VENDOR QUALITY SUPERVISOR 550 mg 550 mg, oral, 2 times daily, First dose on Luz Marina 03/13/21 at 0900, Indications: Prophylaxis, medical Given 03/23/2021 9:49 PM VENDOR QUALITY SUPERVISOR 550 mg Given 03/23/2021 8:10 AM VENDOR QUALITY SUPERVISOR 550 mg rocuronium injection (ZEMURON) Given 03/12/2021 9:45 AM VENDOR QUALITY SUPERVISOR 70 mg Code/trauma/sedation medication, Starting on Wed03/12/21 at 0945 sodium bicarbonate tablet 650 mg Given 03/23/2021 8:10 AM VENDOR QUALITY SUPERVISOR 650 mg 650 mg, oral, 3 times daily, First dose on Wed03/19/21 at 1400 Given 03/22/2021 10:49 PM VENDOR QUALITY SUPERVISOR 650 mg Given 03/22/2021 3:05 PM VENDOR QUALITY SUPERVISOR 650 mg sodium bicarbonate tablet 650 mg Given 03/24/2021 8:53 AM VENDOR QUALITY SUPERVISOR 650 mg 650 mg, oral, 4 times daily, First dose (after last modification) on Wed03/23/21 at 1700 Given 03/23/2021 9:49 PM VENDOR QUALITY SUPERVISOR 650 mg Given 03/23/2021 5:38 PM VENDOR QUALITY SUPERVISOR 650 mg sodium chloride 0.9 % flush 100 mL Given 03/12/2021 1:47 PM VENDOR QUALITY SUPERVISOR 100 mL 100 mL, intravenous, Once in imaging, line care, needed for CT, Starting on Wed03/12/21 at 1346, For 1 dose sodium chloride 0.9 % flush 100 mL Given 03/16/2021 2:37 AM VENDOR QUALITY SUPERVISOR 100 mL 100 mL, intravenous, Once in imaging, line care, for CT exam, Starting on Wed03/16/21 at 0230, For 1 dose sodium chloride 0.9 % injection 10 mL Given 03/12/2021 1:46 PM VENDOR QUALITY SUPERVISOR 10 mL 10 mL, intravenous, Once in imaging, line care, Starting on Wed03/12/21 at 1346, For 1 dose sodium chloride 0.9 % injection 10 mL Given 03/17/2021 6:48 AM VENDOR QUALITY SUPERVISOR 10 mL 10 mL, intravenous, As needed, line care, Central Venous Catheter (CVC) Non-Tunneled Non-Valved, Starting on Wed03/12/21 at 1706, Prior to blood sampling, post blood transfusion or post blood sampling. Given 03/17/2021 12:12 AM VENDOR QUALITY SUPERVISOR 10 mL sodium chloride 0.9 % injection 10 mL Given 03/16/2021 2:36 AM VENDOR QUALITY SUPERVISOR 10 mL 10 mL, intravenous, Once in [...] injection 5-15 mL Given 03/23/2021 9:51 PM VENDOR QUALITY SUPERVISOR 10 mL 5-15 mL, intravenous, Every 12 hours scheduled, First dose on Wed03/12/21 at 2100, Central Venous Catheter (CVC) Non-Tunneled Non-Valved: When no infusion to maintain patency. Flush 5 mL per lumen. Given 03/23/2021 8:10 AM VENDOR QUALITY SUPERVISOR 10 mL Given 03/22/2021 10:51 PM VENDOR QUALITY SUPERVISOR 10 mL spironolactone tablet 50 mg (ALDACTONE) Given 03/24/2021 8:52 AM VENDOR QUALITY SUPERVISOR 50 mg 50 mg, oral, Daily, First dose on Luz Marina 03/20/21 at 0900 Given 03/23/2021 8:10 AM VENDOR QUALITY SUPERVISOR 50 mg Given 03/22/2021 10:22 AM VENDOR QUALITY SUPERVISOR 50 mg thiamine tablet 100 mg (VITAMIN B1) Given 03/24/2021 8:52 AM VENDOR QUALITY SUPERVISOR 100 mg 100 mg, oral, Daily, First dose on Luz Marina 03/13/21 at 1230 Given 03/23/2021 8:10 AM VENDOR QUALITY SUPERVISOR 100 mg Given 03/22/2021 10:22 AM VENDOR QUALITY SUPERVISOR 100 mg vancomycin 1,000 mg in NaCl [...] mL/hr in NaCl 0.9% 100 mL AM VENDOR QUALITY SUPERVISOR infusion (PITRESSIN) 0.04 Units/min (12 mL/hr), intravenous, Continuous, Starting on Wed03/12/21 at 1245 New Bag 03/15/2021 10:06 AM VENDOR QUALITY SUPERVISOR 0.04 Units/min 12 mL/hr Rate/Dose Verify 03/15/2021 10:00 AM VENDOR QUALITY SUPERVISOR 0.04 Units/min 12 mL/hr documented in this encounter Active and Recently Administered Medications Times are shown in VENDOR QUALITY SUPERVISOR. Scheduled Medication Order 03/22/2021 03/23/2021 03/24/2021 ciprofloxacin tablet 500 mg (CIPRO) 0702 (Given - Prov ider: Nola Frederick) 0634 (Given - Provider: Lisa Stinson R.N.) 0618 (G ivemily - Provider: Bernardo Rosario RSumaNSuma) 500 mg, [...] mg 1022 (Given - Provider: Julissa torres RSumaNSuma) 0810 (Given - Provider: Hope Guerrier REric.) 0852 (Given - Provider: Hope Guerrier RSumaN.) 1 mg, oral, Daily, First dose on Luz Marina 03/13/21 at 1230 furosemide tablet 20 mg (LASIX) 1022 (Given - Provider : Julissa Villafuerte R.N.) 0810 (Given - Provider: Hope Guerrier R.N.) 0852 (G iven - Provider: Hope Guerrier RSumaN.) 20 mg, oral, Daily, First dose on Luz Marina 03/20/21 at 0900 lactulose solution 30 g (CHRONULAC) 1020 (Given - Prov ider: Julissa Villafuerte R.N.)1457 (Not Given - Provider: Julissa Villafuerte R.N. - Reason: Other)2248 (Not Given - Provider: Carol Rodriguez RSumaNSuma - Reason: Order parameters not met) 0810 (Given - Provider: Andrew AndersonN.)1404 (Given - Provider: Hope Guerrier R.N.)2149 (Given - Provider: Bernardo Rosario R.N.) 0852 (Given - Provider: Hope Guerrier R.N.) 30 g, gastric tube, 3 times daily, First dose on Wed03/12/21 at 1400, Aim for 500 cc stool in 24 hours or 3-4 loose bowel movements per day magnesium oxide tablet 400 mg (MAG-OX) 0 634 (Given - Provider: Lisa Stinson REric.)1541 (Given - Provider: Hope Guerrier R.N.) 0618 [...] later) 001 (Given - Provider: Lisa Stinson RGabby - Comment: per patient request)2148 (Given - Provider: Bernardo Rosario RGabby) 6 mg, oral, Daily at bedtime, First dose (after last modification) on 03/17/[address] tablet 40 mg (PROTONIX) 1022 (Given - Provider: Julissa Villafuerte RSumaN.)2250 (Given - Provider: Carol Rodriguez R.N.) 0809 (Given - Provider: Hope Guerrier R.N.)214 (Given - Provider: Bernardo Rosario R.N.) 0852 [...] phytonadione (vitamin K1) tablet 5 mg (MEPHYTON) ([facility]) 1022 (Given - Provider: Julissa Villafuerte [...] Guerrier R.N.)2149 (Given - Provider: Bernardo Rosario RSumaN.) 0852 (Given - Provider: Hope Guerrier R.N.) [...] (Tristan iven - Provider: Hope Guerrier R.N.) 50 [...] As needed, respirat ory depression, Starting on 03/14/21 at 1958, For RASS Score -4 or [...] Catheter (CVC) Non- Tunneled Non-Valved, Starting on 03/12/21 at 1706, Prior to blood sampling, post blood transfusion or post blood sampling. sodium chloride 0.9 % injection 5 mL 5 mL, intravenous, As needed, line care, Central Venous Catheter (CVC) Non- Tunneled Non-Valved, Starting on 03/12/21 at 1706, Prior to and following infusion and between multiple consecutive infusions. documented in this encounter Additional Health Concerns Infection Onset Date Last Indicated Resolved Time COVID19 Pending 03/12/2021 03/12/2021 03/12/2021 7:32 PM VENDOR QUALITY SUPERVISOR documented as of this encounter Care Teams Land Sales Agent Relationship Specialty Start Date End Date Elsewhere, Pcp PCP - General Family Medicine 03/10/20 11/30/21 Ervin Schroeder MD Referring Provider Family Medicine 03/24/[address] [place] [phone] documented as of this encounter
--- OUTSIDE RECORDS SUMMARY | 2022-02-10 09:44 | XMS_ITS | Encounter Summary ---
:1990 Author Organization [facility] Address [address] [place] [address] Care Team Providers Name Role Phone Elsewhere, Pcp Primary Care Provider Unavailable Reason for Visit Reason Comments Communication Encounter Details Date Type Department Care Team Description 07/12/2020 Clinical Communication Department of [facility], Pcp Communication Medicine, [facility], in [place], [place] [address], [place] [phone] Social History Tobacco Use Types Packs/Day Years [...] you attend religious or Patient refused 2021 druze services? 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 The entrance is on the north side of the building. You must call [phone] during the hours of 7am to 6 [...] sending patient for testing in [facility] or [facility], route encounter to the correct testing pool. R MACHINE OFFBEARER documented in this encounter Plan of Treatment Upcoming Encounters Date Type Specialty Care Team Description Virtual Visit Transplant Matthew Jerome M .B.B.S., Lilian [address] [place] [phone] 2 Rain Reyes R.N. [address] [place] [phone] Telemedicine Transplant LinaFederico 2 reBrigid M.D. [address] [place] [phone] Office Visit [facility], 2 Medicine Frances PerezASuma-C. [address] [place] [phone] Lab Laboratory Medicine Karin, Olinda Gannon M.D., Ph.D. [address] [place] [phone] Lab Laboratory Medicine Olinda Frazier M.D., Ph.D. [address] [place] [phone] Office Visit Transplant Olinda Frazier M.D., Ph.D. [address] [place] [phone] Appointment Radiology Matthew Jerome 2, M.B.B.S., M.D. [address] [place] [phone] Appointment Gastroenterology and [place], 2 Hepatology Yue Burciaga M.D. [address] [place] [phone] Office Visit Gastroenterology and Matthew Jerome 2 Hepatology Tyrell Rodriguez M.D. [address] [place] [phone] Appointment Radiology Matthew Jerome 2 Tyrell Rodriguez M.D. [address] [place] [phone] [facility] Gastroenterology and Matthew Jerome Cirrhos is Alcoholic (HCC) 2 Encounter Hepatology Tyrell Rodriguez M.D. [address] [place] [phone] Anesthesia Event Gastroenterology and Rl, 2 Hepatology Ervin Burgos M.D. [address] [place] [phone] Surgery Gastroenterology and Matthew Jerome ESOPHAG OGASTRODUODENOSCOPY 2 Hepatology Vik RodriguezBLilian Bedolla [address] [place] [phone] Scheduled Procedures Name Priority Associated Diagnoses Date/Time ESOPHAGOGASTRODUODENOSCOPY Cirrhosis Alc oholic (HCC) 03/20/2022 8:45 AM AUGER MACHINE OFFBEARER Hypertension Portal (HCC) documented as of this encounter Visit Diagnoses Not on filedocumented in this encounter Care Teams Link Wire Fabric Machine Tender Relationship Specialty Start Date End Date Elsewhere, Pcp PCP - General Family Medicine 03/10/20 11/30/21 documented as of this encounter
--- OUTSIDE RECORDS SUMMARY | 2022-02-10 09:44 | XMS_ITS | Encounter Summary ---
:1990 Author Organization [facility] Address [address] [place] [address] Care Team Providers Name Role Phone Elsewhere, Pcp Primary Care Provider Unavailable Encounter Details Date Type Department Care Team Description 08/27/2020 Orders Only [facility] PCP [facility] Sa yoav Trujillo M.D. [address] [place], [place] [phone] (Wo rk) Social History [...] you attend adventism or Patient refused 2021 christianity services? 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 [address] [place] [phone] 2 Rain Reyes R.N. [address] [place] [phone] Telemedicine Transplant LinaDemarcus 2 Brigid noyola M.D. [address] [place] [phone] Office Visit Community Internal [facility], 2 Solitario Perez P.A.-C. [address] [place] [phone] Lab Laboratory Medicine Karin, 2 Adeline Gannon M.D., Ph.D. [address] [place] [phone] Lab Laboratory Medicine Olinda Frazier M.D., Ph.D. [address] [place] [phone] Office Visit Transplant Karin, 2 Adeline Gannon M.D., Ph.D. [address] [place] [phone] Appointment Radiology Matthew Jerome 2 YJoshuaB.B.SSuma, Lilian [address] [place] [phone] Appointment Gastroenterology and Adrianne, 2 Hepatology Yue Burciaga M.D. [address] [place] [phone] [facility] Joshua RodriguezB.B.Lilian Stockton [address] [place] [phone] Appointment Radiology Matthew Jerome 2 Y M.B.B.Kath, Lilian [address] [place] [phone] Hospital Gastroenterology and [facility] Cirrhos is Alcoholic (HCC) 2 Encounter Hepatology Elizabeth Rodriguez.B.B.SLilian Moise [address] [place] [phone] Anesthesia Event Gastroenterology and Rl, 2 Hepatology Ervin Burgos M.D. [address] [place] [phone] Surgery Gastroenterology and Queenie Matthew ESOPHAG OGASTRODUODENOSCOPY 2 Hepatology Joshua RodriguezB.B.Lilian Stockton [address] [place] [address], [place] [phone] Scheduled Procedures Name Priority Associated Diagnoses Date/Time ESOPHAGOGASTRODUODENOSCOPY Cirrhosis Alc oholic (HCC) 03/20/2022 8:45 AM CUSTOMER SUPPORT COORDINATOR Hypertension Portal (HCC) documented as of this encounter Visit Diagnoses Not on filedocumented in this encounter Care Teams Nuclear Pharmacist Relationship Specialty Start Date End Date Elsewhere, Pcp PCP - General Family Medicine 03/10/20 11/30/21 documented as of this encounter
--- OUTSIDE RECORDS SUMMARY | 2022-02-10 09:44 | XMS_ITS | Encounter Summary ---
:1990 Author Organization [facility] Address [address] [place] [address] Care Team Providers Name Role Phone Elsewhere, Pcp Primary Care Provider Unavailable Reason for Visit Reason Onset Date Comments Outpatient COVID-19 Testing 07/21/2020 Encounter Details Date Type Department Care Team Description 07/21/2020 External Outreach Department of Pedro Evans And Internal Medicine in [place] (Suspected) Exposure [place], [place] [address] To COVID-19 (Primary [address] [place], [place] Dx) [place] [phone] Social History Tobacco Use Types Packs/Day Years [...] you attend spiritism or Patient refused 2021 uatsdin services? 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 - 07/21/2020 7:59 AM CDT Encounter created for COVID-19 screening. documented in this encounter Miscellaneous Notes Addendum Note - Digna Brenner R.N. - 07/21/2020 7:59 AM CDT Addended by: DIGNA BRENNER on: 07/22/2020 12:06 PM Modules accepted: Orders documented in this encounter Plan of Treatment Upcoming Encounters Date Type Specialty Care Team Description Virtual Visit Transplant Matthew Jerome M .B.B.S., MJules [address] [place] [phone] 2 Rain Reyes R.N. [address] [place] [phone] Telemedicine Transplant LinaFederico 2 Brigid noyola M.D. [address] [place] [phone] Office Visit [facility], 2 Medicine Vernell Perez [address] [place] [phone] Lab Laboratory Medicine Karin, 2 Adeline Gannon M.D., Ph.D. [address] [place] [phone] Lab Laboratory Medicine Karin, 2 Adeline Gannon M.D., Ph.D. [address] [place] [phone] Office Visit Transplant Karin, 2 Adeline Gannon M.D., Ph.D. [address] [place] [phone] Appointment Radiology Matthew Jerome 2, M.B.BLilian Bedolla [address] [place] [phone] Appointment Gastroenterology and Adrianne, 2 Hepatology Yue Burciaga M.D. [address] [place] [phone] Office Visit Gastroenterology and Matthew Jerome 2 Hepatology Joshua RodriguezBSumaBSumaSLilian Moise [address] [place] [phone] Appointment Radiology Matthew Jerome 2 YTyrell M.D. [address] [place] [phone] Hospital Gastroenterology and Matthew Jerome Cirrhos is Alcoholic (HCC) 2 Encounter Hepatology Tyrell Rodriguez M.D. [address] [place] [phone] Anesthesia Event Gastroenterology and Rl, 2 Hepatology Ervin Burgos M.D. [address] [place] [phone] Surgery Gastroenterology and Queenie Matthew ESOPHAG OGASTRODUODENOSCOPY 2 Hepatology Tyrell Rodriguez M.D. [address] [place] [phone] Scheduled Procedures Name Priority Associated Diagnoses Date/Time ESOPHAGOGASTRODUODENOSCOPY Cirrhosis Alc oholic (HCC) 03/20/2022 8:45 AM RESIDENTIAL FINISH CARPENTER Hypertension Portal (HCC) documented as of this encounter Visit Diagnoses Diagnosis Contact With And (Suspected) Exposure To COVID-19 - Primary Cirrhosis Alcoholic (HCC) Cirrhosis Alcoholic (HCC) Hypertension Portal (HCC) documented in this encounter Additional Health Concerns Infection Onset Date Last Indicated Resolved Time COVID19 Pending 07/21/2020 07/21/2020 07/22/2020 12:06 PM CDT documented as of this encounter Care Teams Compressor Battery Pellets Relationship Specialty Start Date End Date Elsewhere, Pcp PCP - General Family Medicine 03/10/20 11/30/21 documented as of this encounter
--- OUTSIDE RECORDS SUMMARY | 2022-02-10 09:44 | XMS_ITS | Encounter Summary ---
:1990 Author Organization [facility] Address [address] [place] [address] Care Team Providers Name Role Phone Elsewhere, [...] you attend hindu or Patient refused 2021 church services? 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 [address] [place] [phone] Telemedicine Transplant Ashtyn 2 Brigid noyola M.D. [address] [place] [phone] Office Visit [facility] Internal [facility], 2 Medicine Vernell Perez [address] [place] [address] Lab Laboratory Medicine Olinda Frazier M.D., Ph.D. [address] [place] [phone] Lab Laboratory Medicine Olinda Frazier M.D., Ph.D. [address] [place] [phone] Office Visit Transplant Olinda Frazier M.D., Ph.D. [address] [place] [phone] Appointment Radiology Matthew Jerome 2 Tyrell Rodriguez M.D. [address] [place] [phone] Appointment Gastroenterology and Adrianne, 2 Hepatology Yue Burciaga M.D. [address] [place] [phone] Office Visit Gastroenterology and Matthew Jerome 2 Hepatology Tyrell Rodriguez M.D. [address] [place] [phone] Appointment Radiology Matthew Jerome 2 Tyrell Rodriguez M.D. [address] [place] [phone] Hospital Gastroenterology and Matthew Jerome Cirrhos is Alcoholic (HCC) 2 Encounter Hepatology Tyrell Rodriguez M.D. [address] [place] [phone] Anesthesia Event Gastroenterology and Rl, 2 Hepatology Ervin Burgos M.D. [address] [place] [phone] Surgery Gastroenterology and Matthew Jerome ESOPHAG OGASTRODUODENOSCOPY 2 Hepatology Tyrell Rodriguez M.D. [address] [place] [phone] Scheduled Procedures Name Priority Associated Diagnoses Date/Time ESOPHAGOGASTRODUODENOSCOPY Cirrhosis Alc oholic (HCC) 03/20/2022 8:45 AM CAFETERIA OR LUNCHROOM CHECKER Hypertension Portal (HCC) documented as of this encounter Procedures Procedure Name Priority Date/Time Associated Diagnosis Comme nts GENERAL SURGERY Routine 03/12/2021 11:00 AM Resul ts for this IMAGE EXAM CAFETERIA OR LUNCHROOM CHECKER procedure are i n the results section. documented in this encounter Results Non-Radiology Image-General Surgery Image Exam (03/12/2021 11:00 AM CAFETERIA OR LUNCHROOM CHECKER) Specimen (Source) Anatomical Location Collection Method / Collectio n Time Received Time / Laterality Volume Narrative IIMS - 03/13/2021 6:34 PM CAFETERIA OR LUNCHROOM CHECKER This order has been created and auto-finalized [...] COVID19 Pending 03/12/2021 03/12/2021 03/12/2021 7:32 PM CAFETERIA OR LUNCHROOM CHECKER documented as of this encounter Care Teams Mountain Or Glacier Guide Relationship Specialty Start Date End Date Elsewhere, Pcp PCP - General Family Medicine 03/10/20 11/30/21 documented as of this encounter
--- OUTSIDE RECORDS SUMMARY | 2022-02-10 09:44 | XMS_ITS ---
:1990 Author Organization [facility] Address [address] [place] [address] Care Team Providers Name Role Phone Ana Red P.A.-C. Primary Care Provider [phone] Transplant Episode [facility] ([place], [place] - MNMCEvaluation began on 09/26/2021Marked as Deferred on 10/16/2021 Liver CoordinatorTXP PRE LIVER NURSE TEAM 2 ROCHPhone: N/AFax: N/AEmail: N/A Scores Score Value Updated Expires Exceptions/Reas ons CPRA Not available UNOS MELD Not available MELD (Calc) 28 02/02/2022 [place] Organ Diagnosis Organ Primary Contributory Liver Alcoholic Cirrhosis Care Team Name Role Phone Fax Email TXP PRE LIVER Liver Coordinator N/A N/A N/A NURSE TEAM 2 DAYRON Vann, Transplant Surgeon [phone] [email or web address] [email or web address] Matthew Jerome, Referring Provider [phone] [email or web address] [place]ian Santillan Transplant Woodworking Craftsman du Events Pre-Transplant Referred: 08/14/2021 Evaluation began: 09/26/2021 Committee: 10/15/2021
--- OUTSIDE RECORDS SUMMARY | 2022-02-10 09:44 | XMS_ITS | Encounter Summary ---
:1990 Author Organization [facility] Address [address] [place] [address] Care Team Providers Name Role Phone Elsewhere, Pcp Primary Care Provider Unavailable Encounter Details Date Type Department Care Team Description 03/10/2020 Admin Visit Department of Family Medicine, [address] [phone] [facility] [phone] Social History Tobacco Use Types Packs/Day Years [...] you attend christianity or Patient refused 2021 gnosticism services? 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 [address] [place] [phone] Telemedicine Transplant LinaFederico 2 Brigid noyola M.D. [address] [place] [phone] Office Visit [facility] Internal [facility], 2 Medicine Vernell Perez [address] [place] [address] Lab Laboratory Medicine Karin, 2 Adeline Gannon M.D., Ph.D. [address] [place] [phone] Lab Laboratory Medicine Olinda Frazier M.D., Ph.D. [address] [place] [phone] Office Visit Transplant Karin, 2 Adeline Gannon M.D., Ph.D. [address] [place] [phone] Appointment Radiology Matthew Jerome 2 YElizabeth.B.B.SSuma, Lilian [address] [place] [phone] Appointment Gastroenterology and Adrianne, 2 Hepatology Yue Burciaga M.D. [address] [place] [phone] [facility] Joshua RodriguezB.B.SSuma, Lilian [address] [place] [phone] Appointment Radiology Matthew Jerome 2 Y M.B.B.SSuma, Lilian [address] [place] [phone] [facility] Gastroenterology and [facility] Cirrhos is Alcoholic (HCC) 2 Encounter Hepatology Jennifer M.B.B.SLilian Moise [address] [place] [phone] Anesthesia Event Gastroenterology and Rl, 2 Hepatology Ervin Burgos M.D. [address] [place] [phone] Surgery Gastroenterology and Queenie Matthew ESOPHAG OGASTRODUODENOSCOPY 2 Hepatology Jennifer M.B.B.SSuma, Lilian [address] [place] [phone] Scheduled Procedures Name Priority Associated Diagnoses Date/Time ESOPHAGOGASTRODUODENOSCOPY Cirrhosis Alc oholic (HCC) 03/20/2022 8:45 AM SKELP PROCESSOR Hypertension Portal (HCC) documented as of this encounter Visit Diagnoses Not on filedocumented in this encounter Additional Health Concerns Infection Onset Date Last Indicated Resolved Time COVID19 Pending 03/10/2020 03/10/2020 03/11/2020 12:40 PM SKELP PROCESSOR documented as of this encounter Care Teams Claims Service Adjustor Relationship Specialty Start Date End Date Elsewhere, Pcp PCP - General Family Medicine 03/10/20 11/30/21 documented as of this encounter
--- OUTSIDE RECORDS SUMMARY | 2022-02-10 09:44 | XMS_ITS | Encounter Summary ---
:1990 Author Organization [facility] Address [address] [place] [address] Care Team Providers Name Role Phone Elsewhere, Pcp Primary Care Provider Unavailable Reason for Visit Reason Onset Date Comments Outpatient COVID-19 Testing 03/10/2020 Encounter Details Date Type Department Care Team Description 03/10/2020 External Outreach Department of Pedro Evans Infect ion Upper Internal Medicine in J, D.O. Respiratory (Primary [place], [place] [address] Dx) [address] [place], [place] [phone] Social History Tobacco Use Types Packs/Day Years [...] you attend cheondoism or Patient refused 2021 nondenominational services? 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 - 03/10/2020 3:17 PM CST Encounter created for the drive-through COVID-19 testing. UGATED BOX MACHINE OPERATOR documented in this encounter Plan of Treatment Upcoming Encounters Date Type Specialty Care Team Description Virtual Visit Transplant Matthew Jerome M .B.B.S., M.D. [address] [place] [phone] 2 Rain Reyes R.N. [address] [place] [phone] Telemedicine Transplant Ashtyn 2 Brigid noyola M.D. [address] [place] [phone] Office Visit Community Internal Neda, 2 Solitario Perez P.A.-C. [address] [place] [phone] Lab Laboratory Medicine Olinda Frazier M.D., Ph.D. [address] [place] [phone] Lab Laboratory Medicine Olinda Frazier M.D., Ph.D. [address] [place] [phone] Office Visit Transplant Karin, Olinda Gannon M.D., Ph.D. [address] [place] [phone] Appointment Radiology Matthew Jerome 2 YJoshuaBSumaB.SSuma, Lilian [address] [place] [phone] Appointment Gastroenterology and Adrianne 2 Hepatology Yue Burciaga M.D. [address] [place] [phone] Office Visit Gastroenterology and Matthew Jerome 2 Hepatology Joshua RodriguezBSumaB.SLilian Moise [address] [place] [phone] Appointment Radiology Matthew Jerome 2 Joshua RodriguezB.B.SLilian Moise [address] [place] [phone] Hospital Gastroenterology and Matthew Jerome Cirrhos is Alcoholic (HCC) 2 Encounter Hepatology Joshua RodriguezBLilian Staples [address] [place] [phone] Anesthesia Event Gastroenterology and Rl, 2 Hepatology Ervin Burgos M.D. [address] [place] [phone] Surgery Gastroenterology and Mousa, Matthew ESOPHAG OGASTRODUODENOSCOPY 2 Hepatology Tyrell Rodriguez M.D. [address] [place] [phone] Scheduled Procedures Name Priority Associated Diagnoses Date/Time ESOPHAGOGASTRODUODENOSCOPY Cirrhosis Alc oholic (HCC) 03/20/2022 8:45 AM CORRUGATED BOX MACHINE OPERATOR Hypertension Portal (HCC) documented as of this encounter Procedures Procedure Name Priority Date/Time Associated Diagnosis Comme nts SARS CORONAVIRUS-2 Routine 03/10/2020 4:10 PM Infection Upper Results for this RNA, V CORRUGATED BOX MACHINE OPERATOR Respiratory procedure are i n the results section. documented in this encounter Results SARS Coronavirus-2 RNA, V Symptomatic (03/10/2020 4:10 PM CORRUGATED BOX MACHINE OPERATOR) [facility] Method Time Signature SARS-CoV-2 Swab, 03/11/2020 MKTO Specimen Nasopharynx 12:38 PM Source CORRUGATED BOX MACHINE OPERATOR SARS CoV-2 Undetected Undetected 03/11/2020 MKTO RNA, TMA 12:38 PM CORRUGATED BOX MACHINE OPERATOR Comment: SARS-CoV-2 RNA absent. This result does not rule out COVID-19 in the patient, as the sensitivity of the test depends o n the timing of the specimen collection and the quality of the specim en. Result should be correlated with patient's history and clinical presentat ion. ----ADDITIONAL INFORMATION---- This test is performed using the Aptima SARS-CoV-2 assay ([employer] which has received Emergency Use Authori zation (EUA) by the U.S. Food and Drug Administration. Fact sheets for this Emergency Use Autho rization (EUA) assay can be found at the following links: For Healthcare Providers: https://www.fd a.gov/media/864083/download For Patients: https://www.fda.gov/media/ 425211/download Specimen Anatomical Collection Method Collection Time Receive d Time (Source) Location / / Volume Laterality Varies 03/10/2020 4:10 PM 0 (Nasopharynx) CORRUGATED BOX MACHINE OPERATOR 11:20 PM CORRUGATED BOX MACHINE OPERATOR Pedro Evans D.O. LAB MICROBIOLOGY - GENERAL O JOSE Performing Organization Address City/State/[facility] Phon e Number [facility]- [address] [place] [address] [place] [address] documented in this encounter Visit Diagnoses Diagnosis Infection Upper Respiratory - Primary Cirrhosis Alcoholic (HCC) Cirrhosis Alcoholic (HCC) Hypertension Portal (HCC) documented in this encounter Additional Health Concerns Infection Onset Date Last Indicated Resolved Time COVID19 Pending 03/10/2020 03/10/2020 03/11/2020 12:40 PM CORRUGATED BOX MACHINE OPERATOR documented as of this encounter Care Teams Python Engineer Relationship Specialty Start Date End Date Elsewhere, Pcp PCP - General Family Medicine 03/10/20 11/30/21 documented as of this encounter
--- OUTSIDE RECORDS SUMMARY | 2022-02-10 09:45 | XMS_ITS | Encounter Summary ---
:1990 Author Care Team Providers Name Role Phone Ervin Schroeder MD Primary Care Provider [phone] [facility] OTHER [phone] Parris Knight (Mother) Patient Designee [phone] Jairo Rodriguez LICENSED [employer]ENTS Nurse Practitioner [phone] Matthew Rollins MD Transplant Store Director [phone] [facility] Care Team Palliative Care [phone] Taylor Paul RN Palliative Care [phone] Zenobia Kirby [facility] [place] [phone] Reason for Visit JAN Continuation of Care [...] ? Medications Name Start Date ? ? acetaminophen 500 mg tablet ? TAKE 1 TABLET BY MOUTH EVERY 6 HOURS NEEDED FOR MILD PAIN OR SCORE 1-3 OF 10 OR MODERATE PAIN OR SCORE 4-6 OF 10 b-1 100 mg tabs ? ciprofloxacin 500 mg tablet ? cyclobenzaprine 5 mg tablet ? TAKE 1 TABLET BY MOUTH EVERY DAY NEEDED FOR MUSCLE SPASM diclofenac 1 % topical gel ? APPLY 2 GRAMS TOPICALLY FOUR TIMES DAILY TO PAINFUL A FRED ergocalciferol (vitamin D2) 1,250 mcg (50,000 unit) ca psule ? TAKE 1 CAPSULE BY MOUTH ONCE A WEEK folic acid 1 mg tablet ? TAKE 1 TABLET BY MOUTH DAILY furosemide 20 mg tablet ? TAKE 2 TABLETS BY MOUTH DAILY furosemide 40 mg tablet ? TAKE 1 TABLET BY MOUTH EVERY DAY gabapentin 300 mg capsule ? Take by [...] ? TAKE 1 TABLET BY MOUTH EVERY DAILY N EEDED FOR ANXIETY. TAKE 1 HOUR BEFORE EACH PARACENTESIS magnesium oxide 400 mg (241.3 mg magnesium) tablet ? TAKE 1 TABLET BY MOUTH TWICE DAILY marijuana (cannabis) ? Apply 1 each topically daily. Med Name: Medical Cannabis [place] (50 mg THC/oz) 0.2% THC/CBD <0.1% marijuana (cannabis) buds/leaves for smoking ? Inhale 1 each as needed. Med Name: Vakast ada Cannabis Flower, smoking once weekly as [...] TAKE 2 TABLETS BY MOUTH EVERY DAY prochlorperazine maleate 10 mg tablet ? ropinirole 2 mg tablet ? TAKE 1 TABLET BY MOUTH AT BEDTIME spironolactone 100 mg tablet ? TAKE 1 TABLET BY MOUTH EVERY MORNING spironolactone 50 mg tablet ? Take 2 [...] Code Code System Name Reaction Severity Onset 08309 RxNorm Azithromycin ? ? ? Problems Name [...] Status Unknown. Past Encounters 12/01/2021 Jairo Rodriguez ON SITE COORDINATOR: [address] [place] [phone], Ph. 11/27/2021 Taylor Paul RN: [address] [place] [address], Ph. 11/05/2021 Jairo Rodriguez ON SITE COORDINATOR: [address] [place] [address], Ph. [phone] History of Present Illness Note: <div>provider called 3 times, no answer. </div><div>Asking [facility] to try and reschedule appt. </div><div>No services performed.
</div> Review of Systems None recorded. Physical Exam None recorded.
--- OUTSIDE RECORDS SUMMARY | 2022-02-10 09:45 | XMS_ITS | Clinical Summary ---
:1990 Author Organization [facility] [place] [address] Care Team Providers Name Role Phone Ana Red PA-C Primary Care Provider Allergies Active Allergy Reactions Severity Noted Date Comments Azithromycin Nausea And Vomiting Low 05/07/2016 Other re action(s): Other (see comments) Unknown Other reaction( s): Unknown Other reaction( s): GI intolerance Gabapentin Other - Describe In High 11/26/2021 Encephal opathy Comment Field Medications Medication Sig Dispensed Refills Start End Date Status Date vitamin a (AQUASOL Take 10,000 0 Active A) 10,000 unit units by mouth capsule every Wednesday, Wednesday and Wednesday. furosemide (LASIX) Take 40 mg by 0 Active 40 mg tablet mouth once daily. spironolactone Take 100 mg by 0 Active (ALDACTONE) 50 mg mouth once tablet daily. magnesium oxide 400 Take 400 mg by 0 Active mg magnesium capsule mouth 2 times daily. ciprofloxacin HCl Take 500 mg by 0 Active (CIPRO) 500 mg mouth once tablet daily. ergocalciferol Take 50,000 0 Act gerri (VITAMIN D2; units by mouth DRISDOL) 50,000 unit once weekly. capsule On Mondays. folic acid 1 mg Take 1 mg by 0 A ctive tablet mouth once daily. pantoprazole Take 40 mg by 0 Act gerri (PROTONIX) 40 mg mouth once delayed-release daily. tablet rifAXIMin (XIFAXAN) Take 550 mg by 0 Active 550 mg tablet mouth 2 times daily. thiamine (VITAMIN Take 100 mg by 0 Active B1) 100 mg tablet mouth once daily. lactulose 10 gram/15 Take 10 g by 0 Active mL solution mouth three times daily. May take one additional dose per day based on number of stools. diclofenac topical Apply 0 A ctive (VOLTAREN) 1 % gel topically to affected area(s) 4 times daily if needed (pain). zinc sulfate 50 mg Take 220 mg by 0 Active zinc (220 mg) mouth once capsule daily. lidocaine 4 % Apply on dry, 0 Ac tive topical patch clean, hairless skin once daily if needed for Pain. Apply to intact skin to cover most painful area for max 12hr per 24hr period. traZODone (DESYREL) Take 50 mg by 0 Active 50 mg tablet mouth at bedtime if needed for Sleep. LORazepam (ATIVAN) 1 Take 1 mg by 0 Active mg tablet mouth once daily if needed (prior to paracentesis). prochlorperazine Take 10 mg by 0 Active (COMPAZINE) 10 mg mouth every 6 tablet hours if needed for Nausea/Vomitin g. lactulose 10 gram/15 Take 30 mL (20 946 mL 0 01/20 Discontinued mL g) by mouth 3 1 22 (Pharm acist solutionIndications: times daily. change per Hyperammonemia (HC) medication history (E-cancel not sent)) oxyCODONE Take 2.5-5 mg 0 02/09/20 Discon tinued (ROXICODONE) 5 mg by mouth 2 22 ( Pharmacist immediate release times daily if change per tablet needed for medicatio n Pain. history (E-cancel not sent)) diazePAM (VALIUM) 5 Take 5 mg by 0 0 Discontinued mg tablet mouth at 22 (*Patient states bedtime. no longer taking/Not on sending fa cility list) gabapentin Take 600 mg by 0 02/09/20 Disc ontinued (NEURONTIN) 300 mg mouth 2 times 22 (*Patient states capsule daily. no longer taking/Not on sending fa cility list) gabapentin Take 900 mg by 0 02/09/20 Disc ontinued (NEURONTIN) 300 mg mouth at 22 ( *Patient states capsule bedtime. no longer taking/Not on sending fa cility list) hydrOXYzine HCL Take 25-50 mg 0 02/09/20 Discontinued (ATARAX) 25 mg by mouth at 22 (*P atient states tablet bedtime. no longer taking/Not on sending fa cility list) rOPINIRole (REQUIP) Take 2 mg by 0 0 Discontinued 2 mg tablet mouth at 22 (Pharmac ist bedtime. change per medication history (E-cancel not sent)) ondansetron (ZOFRAN Place 1 Tablet 30 Tablet 0 02/08 Discontinued ODT) 8 mg (8 mg) on the 2 (Pharm acist disintegrating tongue every 8 change per tabletIndications: hours if m edication Decompensated needed for histo ry hepatic cirrhosis Nausea/Vomitin (E-cancel not (HC) g. sent)) promethazine Take 1 Tablet 30 Tablet 0 02/09/20 Dis continued (PHENERGAN) 25 mg (25 mg) by 2 ( Pharmacist tabletIndications: mouth every 6 change per Decompensated hours if medica tion hepatic cirrhosis needed for h istory (HC) Nausea/Vomitin (E-ca ncel not g. sent)) cyclobenzaprine Take 5 mg by 0 02/10/20 D iscontinued (FLEXERIL) 5 mg mouth 3 times 22 (*IP tablet daily if Discontinu ed) needed for Muscle Spasm. Active Problems Problem Noted Date Bilateral low back pain with bilateral sciatica 2021 Metabolic encephalopathy 02/08/2022 Alcoholic hepatitis 02/08/2022 Decompensation of cirrhosis of liver 02/08/2022 Portal hypertension 02/08/2022 Anemia 02/08/2022 Esophageal varices 02/08/2022 Current drinker of alcohol 10/25/2021 Chronic pain syndrome 10/10/2021 Hepatic encephalopathy 10/10/2021 Encounter for long-term (current) use of insulin 10/10 Eating disorder 10/10/2021 Portal hypertension 09/05/2021 Overview: Formatting of this note might be differe nt from the original. Added automatically from request for dolly edi [id number] Acute alcoholic hepatitis 08/26/2021 Acquired coagulation factor deficiency 07/07/2021 Overview: Formatting of this note might be differe nt from the original. Added automatically from request for dolly daley [id number] Thrombocytopenia 07/01/2021 Alcoholic cirrhosis 03/12/2021 Acute respiratory [...] signed 01/12/2017 Overview: Signed: 07/05/12-Kiana Pino APRN, [employer] REPRESENTATIVE - p sychiatry Anxiety disorder; NOS; APPLE [...] Encounters Date Type Specialty Care Team Description 02/08/2022 - Hospital Encounter OGerard Roberto atic encephalopathy (Primary Dx); 02/09/2022 MD Silvestre Anemia, unspecified type; Dominick Hickey Alcoholic cirr hosis of liver with ascites (HC); DO Rupinder Acquired coagulation factor deficiency ( HC) Catia Castle MD Discharge Summary - Dominick Hickey DO - 02/09/2022 2:02 PM CDT HOSPITALIST DISCHARGE SUMMAR Y ? ? [facility] Admission Date: 02/08/2022 Discharge Date: 02/09/2022 Discharge Plan: Catia villegas was discharged to home. Principal Diagnosis Decompensation of cirrhosis of liver (HC) Hospital Problem List Principal Problem: Decompensation of cirrhosis of liver (HC) Active Problems: Thrombocytopenia (HC) Abdominal ascites Chronic pain syndrome Hepatic encephalopathy Acquired coagulation factor deficiency (HC) Metabolic encephalopathy Alcoholic hepatitis Portal hypertension (HC) Anemia Esophageal varices (HC) Bilateral low back pain wit h bilateral sciatica ADDITIONAL COMMENTS REGARDIN G DIAGNOSIS SPECIFICITY Additional Diagnosis Informa tion ?? Hospital Course Catia Carias is a 31 y.o . female with a history of cirrhosis most likely due to alcohol with ascites and abdominal pain, alcoholic hepatitis and alcoholic pancreatitis, who presents to the Emergency Department for evaluation o f??vomiting, incontinence, confusion. Patient was somnolent and barely responsive to questions on initial examination. She is awake and seems mentally at her baseline today. She states she has been taki ng lactulose as prescribed. ?? Of note patient has a chroni c history of recurrent ascites over the past month when she has had multiple emergency room visits at multiple different hospitals. Her presentations would be of worsening ab dominal distention, abdomina l pain, nausea vomiting with poor p.o. intake and worsening of chronic back pain. She would always present with confusion and tremulousness. She would require outpatient paracentesis every 2 weeks. ?? In the ED: She was hemodynam ically stable. Labs showed hemoglobin of 6.9 and received a unit of pRBC. Paracentesis was discussed with patient but patient refused the procedure. She has an appointment wi GI later this week and pl ans to keep this. Her flexeril was stopped because of her encephalopathy on presentation. She continues to complain of lower back pain that radiates to her thighs, declined p hysical therapy evaluation, will follow up with her PCP. Recommendations for Outpatie nt Provider ? ? PCP: Ana Red PA-C Recommendations for outpati ent provider Specific recommendations to be addressed at the follow up visit - Compliance, sick plan, back pain with sciatica. Reason(s) medications were s topped or changed - Stopped flexeril as this can exacerbate her encephalopathy symptoms. Anticoagulation/Oxygen Recom mendations - None Tests and Studies needed - Per GI Discharge Medications Your Home Medicines CONTINUE taking these medici tom Instructions ciprofloxacin HCl 500 mg tab let Commonly known as: CIPRO Take 500 mg by mouth once d aily. diclofenac topical 1 % gel Commonly known as: VOLTAREN Apply topically to affected area(s) 4 times daily if needed (pain). ergocalciferol 50,000 unit c apsule Commonly known as: VITAMIN D 2; DRISDOL Take 50,000 units by mouth once weekly. On Mondays. folic acid 1 mg tablet Take 1 mg by mouth once katy ly. furosemide 40 mg tablet Commonly known as: LASIX Take 40 mg by mouth once da emilie. lactulose 10 gram/15 mL solu tion Take 10 g by mouth three ti mes daily. May take one additional dose per day based on number of stools. lidocaine 4 % topical patch Apply on dry, clean, hairle ss skin once daily if needed for Pain. Apply to intact skin to cover most painful area for max 12hr per 24hr period. LORazepam 1 mg tablet Commonly known as: ATIVAN Take 1 mg by mouth once katy ly if needed (prior to paracentesis). magnesium oxide 400 mg magne sium capsule Take 400 mg by mouth 2 time s daily. pantoprazole 40 mg delayed-r elease tablet Commonly known as: PROTONIX Take 40 mg by mouth once da emilie. prochlorperazine 10 mg table t Commonly known as: COMPAZINE Take 10 mg by mouth every 6 hours if needed for Nausea/Vomiting. rifAXIMin 550 mg tablet Commonly known as: XIFAXAN Take 550 mg by mouth 2 time s daily. spironolactone 50 mg tablet Commonly known as: ALDACTONE Take 100 mg by mouth once d aily. thiamine 100 mg tablet Commonly known as: VITAMIN B 1 Take 100 mg by mouth once d aily. traZODone 50 mg tablet Commonly known as: DESYREL Take 50 mg by mouth at bedt lor if needed for Sleep. vitamin a 10,000 unit capsul e Commonly known as: AQUASOL A Take 10,000 units by mouth every Wednesday, Wednesday and Wednesday. zinc sulfate 50 mg zinc (220 mg) capsule Take 220 mg by mouth once d aily. STOP taking these medicines cyclobenzaprine 5 mg tablet Commonly known as: FLEXERIL Pertinent Findings / Procedu res First weight: 60.7 kg (133 l b 13.1 oz) (02/08/22419) Last weight: 60.7 kg (133 lb 13.1 oz) (02/08/22419) Most Recent Vital Signs Last 36 Hours BP: 117/61 (02/09/22754) B P Min: 103/50 Max: 132/62 Pulse: (!) 107 (02/09/22 5) Pulse Min: 99 Max: 113 Resp: 18 (02/09/22754) Res p Min: 12 Max: 20 SpO2: 95 % (02/09/22754) S pO2 Min: 92 % Max: 97 % Temp: 98.1 ??F (36.7 ??C) (1 754) Temp Min: 97.9 ??F (36.6 ??C) Max: 99.1 ??F (37.3 ??C) Most Recent O2 Device Last L PM (if NC) Last FiO2 (if BiPAP/vent) Room Air (02/09/22754) Last Wt: 60.7 kg (133 lb 13. 1 oz) (02/08/22419) Change from prior: 0 kg current BMI: 24.48 EXAM: Catia is alert, no acute distress. Affect anxious and tearful. Oropharynx pink and moist, no adenopathy. Heart RRR without murmur. Lungs clear to auscultation. Abdomen soft, nontender, bowel so unds present, distended. Ext remities without clubbing, cyanosis, or edema. Brisk capillary refill. Negative SLR. Bronzed skin color. Able to move independently. Recent Labs 02/09/22 0559 02/08/22 1233 02/08/22 0523 WBC 5.6 -- 4.5 RBC 2.59 L -- 1.96 L HGB 8.8 L 9.2 L 6.9 LL HCT 26.5 L -- 20.8 L MCV 102 H 103 H 106 H MCH 34.0 -- 35.2 H MCHC 33.2 -- 33.2 PLT 51 L -- 54 L MPV 9.8 -- 9.0 Recent Labs 02/09/22 0559 02/08/22 05 SODIUM 136 139 POTASSIUM 3.7 3.9 CHLORIDE 103 108 [id number] 25 22 BUN 7 L 8 CREATININE 0.66 0.63 GLUCOSE 150 H 125 H CALCIUM 9.2 8.3 L Recent Labs 02/09/22 0559 02/08/22 0523 ALKPHOSPH 308 H 293 H PROTEIN 5.5 L 5.0 L BILITOTAL 14.4 H 10.7 H AST 70 H 57 H ALT 25 20 Recent Labs 02/08/22 1104 COLOR Yellow CLARITY Clear SPECGRAV 1.015 PHURINE 6.5 UROBILINOGEN Normal PROTEINUA Negative Recent Labs 02/08/22 1104 GLUCOSEUA Negative KETONESUA Negative BILIURINE Abnormal A BLOODUA Negative NITRITE Negative LEUKOCYTE Negative Component Latest Ref Rng & Units 02/0802/09/2022 INR <1.3 2.9 (H) PROTIME 12.0 - 13.8 sec 29.1 (H) AMMONIA 11 - 35 umol/L 105 (HH) 95 (H) Microbiology Results (72 VICENTA RS) Procedure Component Value U nits Date/Time COVID 19 [[id number]] (Norm al) Collected: 02/08/22722 Lab Status: Final result Sp ecimen: Other from Nasopharyngeal Updated: 02/08/22 110 COVID 19 [facility] None Diet / Activity / Follow-Up After Discharge Orders and I nstructions For your safety: If prescribed, use your can e, walker, or crutches as directed. Carry a phone (cordless or c malaika) with you at all times in case of an emergency Reduce your chance of fallin g in your home by: - removing throw rugs - using a night light - clearing the path from you r bed to the bathroom. Low salt 2gm sodium restric tion diet: - eat a diet that is low in sodium (salt). - remove the salt shaker, do not have it on the table when you are eating, or in the kitchen when you are cooking - do not eat seasoned salts, pickles, olives, salted soups and snacks, regular cold cuts and cheeses, regular TV dinners - learn to read food labels - low sodium is 140 mg or le ss per serving - beware of foods with 400 - 600 mg sodium per serving - eat fresh fruits, vegetabl es, and meats Primary Care Provider laci jules up appointment(s) Ana Red PA-C in 3 -5 days. When to follow up: 1 to 5 d ays When is patient being disch arged?: Today Up as tolerated It is important to slowly r eturn to your regular level of activity. Start with 5-10 minutes at one time and slowly build to 30 minutes at one time. Save your energy by spreading out activities that make you tired. Rest as needed. When should you be concerne d? Your health care provider i s: Ervin Schroeder MD Please call your health care provider if: - you feel you are getting w orse or having an increase in problems - fever greater than 101 deg alyssia - increasing shortness of br eath - any signs of infection (in creasing redness, swelling, tenderness, warmth, change in appearance, or increased drainage) - blood in your urine or sto ol - coughing or vomiting blood - nausea (upset stomach) and vomiting and/or diarrhea that will not stop - severe pain that is not re lieved by medicine, rest or ice Call 911 if you feel you are having a medical emergency. Why were you at the [facility]? The reason(s) you were in [facility] is/are hepatic encephalopathy (your liver not processing things well enough and causing this to affect your brain). Pending Studies Lab results that may not be resulted at time of discharge: (From admission through now) Start Ordered 02/09/22 0600 IRON PLUS IRO N BINDING CAP TOMORROW AM, EARLY AM 02/08/22 1622 02/09/22 0600 FERRITIN ROMY RROW AM, EARLY AM 02/08/22 1622 02/09/22 0600 HAPTOGLOBIN T OMORROW AM, EARLY AM 02/08/22 1622 Total time spent on discharg e coordination: 33 minutes. Patient was seen and examined today. Dominick Hickey DO Hospitalist, [facility] ? ? [phone] Cc: Matthew Jerome MD ([facility]) 02/08/2022 Travel 01/16/2022 Emergency [place], Maye Turner, Epi sode of unresponsiveness (Primary Dx); MD Maki bilater al low back pain without sciatica from Last 3 Months Immunizations Name Administration [...] in contact with No / Unsu re 02/08/2022 4:19 AM CDT someone who was confirmed or suspected to have Coronavirus/COVID-19? Obstetrics History Para Term AB IAB SAB Ectopic Multiple Living Live Births 1 1 1 1 Date Outcome GA Total Labor/2nd/3rd Weight Sex Delivery Anes PTL Angelica A 1 A5 Name Clin Labor 04/04 Term 41w 18h 00m/ 3.4 kg M Vag Epid /2013 0d (7 lb 8 ral oz) Comments: adopted out, [place] couple. patient did meet couple. Last Filed Vital Signs Vital Sign Reading Time Taken Comments Blood Pressure 117/61 02/09/2022 7:55 AM CDT Pulse 107 02/09/2022 7:55 AM CDT Temperature 36.7 ??C (98.1 ??F) 02/09/2022 7:55 AM CDT Respiratory Rate 18 02/09/2022 7:55 AM CDT Oxygen Saturation 95% 02/09/2022 7:55 AM CDT Inhaled Oxygen Concentration - - Weight 60.7 kg (133 lb 13.1 oz) 02/08/2022 4:20 AM CDT Height 157.5 cm (5' 2) 02/08/2022 4:20 AM CDT Body Mass Index 24.48 02/08/2022 4:20 AM CDT Plan of Treatment Health Maintenance [...] 2013 18-79 Medical Devices Implanted Type Area Ground Crewman Device Shelf Model / Identifier Expiration Serial / Date Lot Partially Threaded Screws Left: [place] [id number] / Implanted: Qty: 1 on 08/29/2018 by Omar Montesinos MD at [facility] [employer] / Description: From [facility] briana tray Explanted Type Area Ground Crewman Device Shelf Model / Identifier Expiration Serial / Date Lot 2.7mm Locking Screw Left: [place] [id number] / Explanted: Qty: 1 on 08/29/2018 by Omar Montesinos MD at [facility] [employer] / Description: From [facility] briana tracarlota Distal Medial Humerus Plates Left: [employer]bow [place] [employer] [id number] / Implanted: Qty: 1 on 08/29/2018 by Omar Montesinos MD at [facility] / Explanted: Qty: 1 on 06/27/2019 by Omar Montesinos MD at [facility] Description: Amos from [employer] elbow ad d on tray Procedures Procedure Name Priority Date/Time Associated Comments Diagnosis GLUCOSE METER Routine 02/09/2022 8:06 AM Results for this CDT procedure are i n the results section. AMMONIA Today 02/09/2022 6:00 AM Results f or this CDT procedure are i n the results section. CBC WITH AUTO Early AM 02/09/2022 5:59 AM Results for this DIFFERENTIAL CDT procedure are i n the results section. HAPTOGLOBIN Early AM 02/09/2022 5:59 AM Results f or this CDT procedure are i n the results section. FERRITIN Early AM 02/09/2022 5:59 AM Results f or this CDT procedure are i n the results section. IRON PLUS IRON BINDING Early AM 02/09/2022 5:59 AM Results for this CAP CDT procedure are i n the results section. PROTIME-INR Early AM 02/09/2022 5:59 AM Results f or this CDT procedure are i n the results section. HEPATIC FUNCTION PANEL Early AM 02/09/2022 5:59 AM Results for this CDT procedure are i n the results section. BASIC METABOLIC PANEL Early AM 02/09/2022 5:59 AM Results for this CDT procedure are i n the results section. CBC WITH AUTO Early AM 02/09/2022 5:59 AM Results for this DIFFERENTIAL CDT procedure are i n the results section. GLUCOSE METER Routine 02/08/2022 9:24 PM Results for this CDT procedure are i n the results section. HEMOGLOBIN Today 02/08/2022 12:33 Results for this PM CDT procedure are i n the results section. GLUCOSE METER Routine 02/08/2022 11:06 Results fo r this AM CDT procedure are i n the results section. URINALYSIS MICROSCOPIC STAT 02/08/2022 11:04 R esults for this AM CDT procedure are i n the results section. UA W/ SEDIMENT EXAM STAT 02/08/2022 11:04 Resu lts for this REFLEXED PER CRITERIA AM CDT proced ure are in the results section. TRANSFUSE RBC (NURSE STAT 02/08/2022 7:59 AM COMMUNICATION ORDER) CDT COVID 19 STAT 02/08/2022 7:23 AM Results f or this CDT procedure are i n the results section. COVID 19 COLLECTION STAT 02/08/2022 7:23 AM Re sults for this CDT procedure are i n the results section. RED BLOOD CELLS EA STAT 02/08/2022 6:56 AM Res ults for this UNIT CDT procedure are i n the results section. PLATELET ESTIMATE STAT 02/08/2022 5:23 AM Resu lts for this CDT procedure are i n the results section. RED CELL MORPHOLOGY STAT 02/08/2022 5:23 AM Re sults for this CDT procedure are i n the results section. AMMONIA STAT 02/08/2022 5:23 AM Results f or this CDT procedure are i n the results section. ETHANOL SERUM OR STAT 02/08/2022 5:23 AM Resul ts for this PLASMA CDT procedure are i n the results section. LIPASE STAT 02/08/2022 5:23 AM Results f or this CDT procedure are i n the results section. MAGNESIUM STAT 02/08/2022 5:23 AM Results f or this CDT procedure are i n the results section. COMP METABOLIC PANEL STAT 02/08/2022 5:23 AM R esults for this CDT procedure are i n the results section. PROTIME-INR STAT 02/08/2022 5:23 AM Results f or this CDT procedure are i n the results section. CBC W PLT NO DIFF STAT 02/08/2022 5:23 AM Resu lts for this CDT procedure are i n the results section. EKG 12 LEAD STAT 02/08/2022 4:51 AM Results f or this CDT procedure are i n the results section. RBC W TYPE AND SCREEN STAT 02/08/2022 12:56 Re sults for this AM CDT procedure are i n the results section. from Last 3 Months Results (ABNORMAL) GLUCOSE METER (02/09/2022 8:06 AM CDT)Only the most recent of3 resultswithin the time period is included. P athologist Signature GLUCOSE METER 122 (H) 65 - 100 02/09/2022 [place] mg/dL 8:07 AM CDT [facility] Specimen Anatomical Collection Method Collection Time Receive d Time (Source) Location / / Volume Laterality Blood BLOOD SPECIMEN / 02/09/2022 8:06 AM 02/09 8:07 Unknown CDT AM CDT Dominick Hickey DO CHEMISTRY Performing Organization Address [facility]/ZIP Code Phon e Number [facility] [address] [place] [address] (ABNORMAL) AMMONIA (02/09/2022 6:00 AM CDT)Only the most recent of2 results within the time period is included. P athologist Signature AMMONIA 95 (H) 11 - 35 02/09/2022 [place] umol/L 6:[address] [facility] Comment: 1. ??Sulfasalazine and its metabolite Donohue lfapyridine at therapeutic concentrations may lead to falsely low results. 2. ??Temozolomide and its metabolite MTI C may lead to falsely elevated results, and its metabolite AIC may lead to falsely low results. Specimen Anatomical Collection Method Collection Time Receive d Time (Source) Location / / Volume Laterality Blood BLOOD SPECIMEN / [facility] / 02/09/2022 6:00 AM 02/09 6:02 Unknown Unknown CDT AM CDT Dominick Bucio Ruperto DO CHEMISTRY Performing Organization Address [facility] Phon e Number [facility] [address] [place] [address] (ABNORMAL) CBC WITH AUTO DIFFERENTIAL (02/09/2022 5:59 AM CDT) Patholo gist Method Time Signature WHITE BLOOD 5.6 4.5 - 02/09/2022 [place] COUNT 11.0 6:07 AM T [facility] thou/cu LABORATORY mm RED BLOOD COUNT 2.59 (L) 4.00 - 02/09/2022 [place] 5.20 6:07 AM [facility] mil/cu mm LABORATORY HEMOGLOBIN 8.8 (L) 12.0 - 02/09/2022 [place] 16.0 g/dL 6:[address] [facility] HEMATOCRIT 26.5 (L) 33.0 - 02/09/2022 [place] 51.0 % 6:[address] [facility] MCV 102 (H) 80 - 100 02/09/2022 [place] fL 6:[address] [facility] MCH 34.0 26.0 - 02/09/2022 [place] 34.0 pg 6:[address] [facility] MCHC 33.2 32.0 - 02/09/2022 [place] 36.0 g/dL 6:[address] [facility] RDW 23.2 (H) 11.5 - 02/09/2022 [place] 15.5 % 6:[address] [facility] PLATELET COUNT 51 (L) 140 - 440 02/09/2022 [place] thou/cu 6:[address] [facility] mm LABORATORY MPV 9.8 6.5 - 02/09/2022 [place] 11.0 fL 6:[address] [facility] % NEUT 72.8 % 02/09/2022 [place] 6:[address] [facility] % LYMPH 16.7 % 02/09/2022 [place] 6:[address] [facility] % MONO 8.3 % 02/09/2022 [place] 6:[address] [facility] % EOS 1.8 % 02/09/2022 [place] 6:[address] [facility] % BASO 0.4 % 02/09/2022 [place] 6:[address] [facility] ABSOLUTE 4.1 1.7 - 7.0 02/09/2022 [place] NEUTROPHILS thou/cu 6:07 AM [facility] LABORATORY ABSOLUTE 0.9 0.9 - 2.9 02/09/2022 [place] LYMPHOCYTES thou/cu 6:07 AM [facility] LABORATORY ABSOLUTE 0.5 <0.9 02/09/2022 [place] MONOCYTES thou/cu 6:[address] [facility] mm LABORATORY ABSOLUTE 0.1 <0.5 02/09/2022 [place] EOSINOPHILS thou/cu 6:[address] [facility] mm LABORATORY ABSOLUTE 0.0 <0.3 02/09/2022 [place] BASOPHILS thou/cu 6:[address] [facility] mm LABORATORY Specimen Anatomical Collection Method Collection Time Receive d Time (Source) Location / / Volume Laterality Blood BLOOD SPECIMEN / [facility] / 02/09/2022 5:59 AM 02/09 6:02 Unknown Unknown [facility] Catia Castle MD HEMATOLOGY Performing Organization Address City/State/ZIP Code Phon e Number [facility] [address] [place] [address] IRON PLUS IRON BINDING CAP (02/09/2022 5:59 AM CDT) athologist Signature IRON 126 25 - 156 02/09/2022 [facility] ug/dL 5:33 PM CDT LABORATORY-CENT [facility]ORY UIBC <41 02/09/2022 [facility] (UNSATURATED) 5:33 PM CDT [facility]ATORY-[facility] IRON BINDING 02/09/2022 [facility] CAPACITY 5:33 PM CDT LABORATORY-[facility] Comment: Results below measurement range , unable to calculate. IRON,% SATURATION 02/09/2022 5:33 PM CDT [facility] LABORATORY-CENTRAL LABORATORY Comment: Results below measurement range , unable to calculate. Specimen Anatomical Collection Method Collection Time Receive d Time (Source) Location / / Volume Laterality Blood BLOOD SPECIMEN / Butterfly / 02/09/2022 5:59 AM 02/09 6:02 Unknown Unknown CDT AM CDT Catia Castle MD CHEMISTRY Performing Organization Address City/State/ZIP Code Phon e Number [facility] [address] [place] [address] LABORATORY-CENTRAL 2000 LABORATORY (ABNORMAL) PROTIME-INR (02/09/2022 5:59 AM CDT)Only the most recent of2 results within the time period is included. athologist Signature INR 2.9 (H) <1.3 [facility]12 AM [facility]T [facility] PROTIME 29.1 (H) 12.0 - 13.8 02/09/2022 [facility] sec 6:12 AM CDT [facility] CENTER LABORATORY Specimen Anatomical Collection Method Collection Time Receive d Time (Source) Location / / Volume Laterality Blood BLOOD SPECIMEN / Butterfly / 02/09/2022 5:59 AM 02/09 6:02 Unknown Unknown CDT AM CDT Narrative [facility] - 6:12 AM CDT ?Therapeutic Range 2.0-3.0 for most [...] seconds if the patient is on UFH. Catia Castle MD HEMATOLOGY Performing Organization Address [facility]/ZIP [facility] [place] Phon e Number [facility] [address] [place] [address] (ABNORMAL) HAPTOGLOBIN (02/09/2022 5:59 AM CDT) athologist Signature Haptoglobin <8 (L) 30 - 215 02/09/2022 [facility] mg/dL 7:00 PM CDT LABORATORY-CENT [facility]ORY Specimen Anatomical Collection Method Collection Time Receive d Time (Source) Location / / Volume Laterality Blood BLOOD SPECIMEN / Butterfly / 02/09/2022 5:59 AM 02/09 6:02 Unknown Unknown CDT AM CDT Catia Castle MD CHEMISTRY Performing Organization Address City/[facility]/ZIP Code Phon e Number [facility] [address] [place] [address] [place] [address] LABORATORY-CENTRAL 1999 LABORATORY (ABNORMAL) FERRITIN (02/09/2022 5:59 AM CDT) athologist Signature FERRITIN 710.1 (H) 15.0 - 02/09/2022 [facility] 205.0 5:44 PM CDT LABORATORY-CENT ng/mL [facility] Specimen Anatomical Collection Method Collection Time Receive d Time (Source) Location / / Volume Laterality Blood BLOOD SPECIMEN / Butterfly / 02/09/2022 5:59 AM 02/09 6:02 Unknown Unknown CDT AM CDT Caita Castle MD CHEMISTRY Performing Organization Address City/[facility]/ZIP Code Phon e Number [employer] [address] [address] LABORATORY-CENTRAL 1999 LABORATORY (ABNORMAL) HEPATIC FUNCTION PANEL (02/09/2022 5:59 AM CDT) [facility] gist Method Time Signature ALBUMIN 3.8 3.5 - 5.2 02/09/2022 [place] g/dL 6:35 AM [facility] CENTER LABORATORY PROTEIN,TOTAL 5.5 (L) 6.0 - 8.0 02/09/2022 [place] g/dL 6:[address] [facility] GLOBULIN 1.7 (L) 2.0 - 3.7 02/09/2022 [place] g/dL 6:[address] [facility] A/G RATIO 2.2 (H) 1.0 - 2.0 02/09/2022 [place] 6:[address] [facility] BILIRUBIN,TOTAL 14.4 (H) 0.2 - 1.2 02/09/2022 [place] mg/dL 6:[address] [facility] BILIRUBIN,DIRECT 5.4 (H) 0.1 - 0.5 02/09/2022 [place] mg/dL 6:[address] [facility]ORY BILIRUBIN,INDIRE 9.0 (H) 0.2 - 0.8 02/09/2022 [facility] mg/dL 6:[address] [facility] LAB[facility]ORY ALK PHOSPHATASE 308 (H) 50 - 136 02/09/2022 [place] IU/L 6:[address] [facility] ALT (SGPT) 25 8 - 45 02/09/2022 [place] IU/L 6:[address] [facility] AST (SGOT) 70 (H) 2 - 40 02/09/2022 [facility] IU/L 6:[address] [facility] Specimen Anatomical Collection Method Collection Time Receive d Time (Source) Location / / Volume Laterality Blood BLOOD SPECIMEN / Butterfly / 02/09/2022 5:59 AM 02/09 6:02 Unknown Unknown CDT AM CDT Catia Castle MD CHEMISTRY Performing Organization Address City/State/ZIP Code Phon e Number [facility] [address] [place] [address] (ABNORMAL) BASIC METABOLIC PANEL (02/09/2022 5:59 AM CDT) Analysis Performed At Patho logist Time Signature SODIUM 136 135 - 145 02/09/2022 [place] mmol/L 6:24 AM CDT MEDICAL CENTER LABORATORY POTASSIUM 3.7 3.5 - 5.0 02/09/2022 [place] mmol/L 6:[address] [facility] CHLORIDE 103 98 - 110 02/09/2022 [place] mmol/L 6:[address] [facility] CO2,TOTAL 25 21 - 31 02/09/2022 [place] mmol/L 6:[address] [facility] ANION GAP 8 5 - 18 02/09/2022 [place] 6:[address] [facility] GLUCOSE 150 (H) 65 - 100 02/09/2022 [place] mg/dL 6:[address] [facility] CALCIUM 9.2 8.5 - 10.5 02/09/2022 [place] mg/dL 6:[address] [facility] BUN 7 (L) 8 - 25 02/09/2022 [place] mg/dL 6:[address] [facility] CREATININE 0.66 0.57 - 02/09/2022 [facility] 1.11 mg/dL 6:[address] [facility] BUN/CREAT RATIO 11 10 - 20 02/09/2022 [facility] 6:[address] [facility] eGFR >90 >90 02/09/2022 [place] mL/min/1.7 6:[address] [facility] 3m2 LABORATORY Comment: As of 2021, eGFR is [...] Laterality Blood BLOOD SPECIMEN / Butterfly / 02/09/2022 5:59 AM 02/09 6:02 Unknown Unknown T AM T Catia Castle MD CHEMISTRY Performing Organization Address City/State/ZIP Code Phon e Number [facility] [address] [facility] [place] [address] (ABNORMAL) HEMOGLOBIN (02/08/2022 12:33 PM CDT) athologist Signature HEMOGLOBIN 9.2 (L) 12.0 - 02/08/2022 [place] 16.0 g/dL 12:[address] [facility] MCV 103 (H) 80 - 100 02/08/2022 [place] fL 12:[address] [facility] Specimen Anatomical Collection Method Collection Time Receive d Time (Source) Location / / Volume Laterality Blood BLOOD SPECIMEN / Butterfly / 02/08/2022 12:33 022 Unknown Unknown PM CDT 12:39 PM CDT Catia Castle MD HEMATOLOGY Performing Organization Address City/[facility]/ZIP Code Phon e Number [facility] [address] [place] [address] URINALYSIS MICROSCOPIC (02/08/2022 11:04 AM CDT) athologist Signature RBC 0-2 0-2, None 02/08/2022 [place] Seen /HPF 11:[address] [facility]ORY WBC 0-2 0-2, 3-5, 02/08/2022 [place] None Seen 11:21 AM [facility] CENTER /HPF LABORATORY BACTERIA Few None Seen, 02/08/2022 [place] Rare, Few 11:[address] [facility] Bacteria/H LABORATORY PF EPITHELIAL Few None Seen, 02/08/2022 [place] CELLS Few 11:[address] [facility] Epi/HPF LABORATORY RENAL Few Few 02/08/2022 [place] EPITHELIAL 11:[address] [facility] CELLS LABORATORY Specimen Anatomical Collection Method Collection Time Receive d Time (Source) Location / / Volume Laterality Urine URINE SPECIMEN / Non-Blood / 02/08/2022 11:04 022 Unknown Unknown AM CDT 11:12 AM CDT Gerard Cruz MD URINE Performing Organization Address City/[facility]/ZIP Code Phon e Number [facility] [address] [place] [address] (ABNORMAL) Urinalysis W Reflex Microscopic if Positive (02/08/2022 11:04 AM CDT) [facility] gist Method Time Signature COLOR Yellow Yellow Color 02/08/2022 [place] 11:21 AM [facility] LABORATORY CLARITY Clear Clear 02/08/2022 [place] Clarity 11:21 AM [facility] LAB[facility]ATORY SPECIFIC 1.015 1.010, 02/08/2022 [facility] GRAVITY,URINE 1.015, 11:21 AM MEDICAL 1.020, 1.025 [facility] LABORATORY PH,URINE 6.5 6.0, 7.0, 02/08/2022 [facility] 8.0, 5.5, 11:21 AM MEDICAL 6.5, 7.5, T CENTER 8.5 LABORATORY UROBILINOGEN, Normal Normal EU/dl 02/08/2022 [place] QUALITATIVE 11:21 AM [facility] LABORATORY PROTEIN, Negative Negative 02/08/2022 [place] URINE mg/dL 11:21 AM [facility] LABORATORY GLUCOSE, Negative Negative 02/08/2022 [place] URINE mg/dL 11:21 AM [facility] LABORATORY KETONES,URINE Negative Negative 02/08/2022 [facility] mg/dL 11:21 AM [facility] LAB[facility]ATORY BILIRUBIN,URI Abnormal (A) Negative 02/08/2022 [place] 11:21 AM [facility] LAB[facility]ORY Comment: A variety of metabolites and/or medications may result in a positive bilirubin result. Clinical correlation i s recommended. OCCULT BLOOD,URINE Negative Negative 02/08/2022 11:21 AM [facility] NITRITE Negative Negative 02/08/2022 11:21 AM [facility] LAB[facility]ORY LEUKOCYTE ESTERASE Negative Negative 02/08/2022 11:21 AM [facility] Specimen Anatomical Collection Method Collection Time Receive d Time (Source) Location / / Volume Laterality Urine URINE SPECIMEN / Non-Blood / 02/08/2022 11:04 022 Unknown Unknown AM CDT 11:12 AM CDT Gerard Cruz MD URINE Performing Organization Address City/State/ZIP Code Phon e Number [facility] [address] [place] [address] TRANSFUSE RBC (NURSE COMMUNICATION ORDER) (02/08/2022 9:44 AM CDT) Specimen (Source) Anatomical Location Collection Method / Collectio n Time Received Time / Laterality Volume Blood BLOOD SPECIMEN / Unknown Gerard Cruz MD NURSING BLOOD BANK COVID 19 (02/08/2022 7:23 AM CDT) Analysis Performed At [facility] logist Time Signature COVID 19 Negative Negative 02/08/2022 [facility] 11:09 AM T [facility] LAB[facility] Comment: All PCR tests are subject to fa lse negative result due to variability in viral load and collection technique. A n egative result does not rule out a SARS-CoV-2 infection. Clinical correlation required . Specimen Anatomical Location / Collection Method Collection Hiro e Received Time (Source) Laterality / Volume Other SPECIMEN FROM Non-Blood / 02/08/2022 7:23 02/08/2022 7:44 NASOPHARYNGEAL Unknown AM CDT AM CDT STRUCTURE / Unknown Narrative [facility] - 11:09 AM CDT This test has been authorized by [...] the authorization is terminated or revoked sooner. Gerard Cruz MD MICROBIOLOGY Performing Organization Address [facility] LABORATORY [address] [place] [address] COVID 19 COLLECTION (02/08/2022 7:23 AM CDT) [facility] gist Method Time Signature TESTING [facility] 02/08/2022 [place] [facility] Laboratory 7:[address] [facility] Comment: Specimen submitted to [facility] Laboratory for testing. Specimen Anatomical Location / Collection Method Collection Hiro e Received Time (Source) Laterality / Volume Other SPECIMEN FROM Non-Blood / 02/08/2022 7:23 02/08/2022 7:38 NASOPHARYNGEAL Unknown AM CDT AM CDT STRUCTURE / Unknown Gerard Cruz MD SEND OUTS Performing Organization Address [facility] Phon e [facility] LABORATORY [address] [place] [address] RED BLOOD CELLS EA UNIT (02/08/2022 6:56 AM CDT) [facility] Signature CROSSMATCH Compatible Compatible [facility] BLOOD BANK PRODUCT BLOOD B Rh Positive [facility] LAB[facility] BLOOD BANK PRODUCT ID [id number] [facility] LABORATORY BLOOD BANK PRODUCT STATUS Transfused [facility] BLOOD BANK PRODUCT RBC -1 LR [facility] BLOOD BANK PRODUCT CODE [id number] [facility] BLOOD BANK ISSUE 02/08/22 [place] DATE/TIME 07:49 [facility] LAB[facility]ATORY BLOOD BANK Specimen (Source) Anatomical Location Collection Method / Collectio n Time Received Time / Laterality Volume Gerard Cruz MD BLOOD BANK Performing Organization Address [facility]/ZIP Code Phon e Number [facility] [address] [place] [address] BLOOD BANK (ABNORMAL) RED CELL MORPHOLOGY (02/08/2022 5:23 AM CDT) [facility] Signature ACANTHOCYTES Many 02/08/2022 [facility] 6:[address] [facility] POLYCHROMASIA Slight 02/08/2022 [facility] 6:[address] [facility] SCHISTOCYTES Few 02/08/2022 [facility] 6:[address] [facility]ORY RBC COMMENT Present (A) RBC 02/[facility]2022 [facility] morphology 6:11 AM [facility] normal, RBC LABORATORY morphology within normal limits for newborns. Specimen Anatomical Collection Method Collection Time Receive d Time (Source) Location / / Volume Laterality Blood BLOOD SPECIMEN / Butterfly / 02/08/2022 5:23 AM 02/08 5:46 Unknown Unknown CDT AM CDT Gerard Cruz MD HEMATOLOGY Performing Organization Address City/[facility]/ZIP Code Phon e Number [facility] [address] [place] [address] (ABNORMAL) PLATELET ESTIMATE (02/08/2022 5:23 AM CDT) [facility] Signature PLATELET Decreased (A) Adequate, No 02/08/2022 [facility] ESTIMATE estimate 6:11 AM CDT [facility] LABORATORY Specimen Anatomical Collection Method Collection Time Receive d Time (Source) Location / / Volume Laterality Blood BLOOD SPECIMEN / Butterfly / 02/08/2022 5:23 AM 02/08 5:46 Unknown Unknown CDT AM CDT Gerard Cruz MD HEMATOLOGY Performing Organization Address City/State/ZIP Code Phon e Number [facility] [address] [place] [address] (ABNORMAL) CBC w PLT no Diff (02/08/2022 5:23 AM CDT) [facility] Method Time Signature WHITE BLOOD 4.5 4.5 - 11.0 02/08/2022 [facility] COUNT thou/cu mm 6:[address] [facility] LABOR[facility]ORY RED BLOOD COUNT 1.96 (L) 4.00 - 02/08/2022 [place] 5.20 6:[address] [facility] mil/cu mm LABORATORY HEMOGLOBIN 6.9 (LL) 12.0 - 02/08/2022 [place] 16.0 g/dL 6:[address] [facility] LABORATORY HEMATOCRIT 20.8 (L) 33.0 - 02/08/2022 [place] 51.0 % 6:[address] [facility] LABORATORY MCV 106 (H) 80 - 100 02/08/2022 [facility] fL 6:[address] [facility] LABORATORY MCH 35.2 (H) 26.0 - 02/08/2022 [place] 34.0 pg 6:[address] [facility] LABORATORY MCHC 33.2 32.0 - 02/08/2022 [place] 36.0 g/dL 6:[address] [facility] LABORATORY RDW 21.8 (H) 11.5 - 02/08/2022 [place] 15.5 % 6:[address] [facility] LABORATORY PLATELET COUNT 54 (L) 140 - 440 02/08/2022 [facility] thou/cu mm 6:[address] [facility] LABORATORY MPV 9.0 6.5 - 11.0 02/08/2022 [place] fL 6:[address] [facility] LABORATORY Specimen Anatomical Collection Method Collection Time Receive d Time (Source) Location / / Volume Laterality Blood BLOOD SPECIMEN / Butterfly / 02/08/2022 5:23 AM 02/08 5:46 Unknown Unknown CDT AM CDT Gerard Cruz MD HEMATOLOGY Performing Organization Address City/[facility]/ZIP Code Phon e Number [facility] [address] [place] [address] Ethanol Serum or Plasma (02/08/2022 5:23 AM CDT) athologist Signature ETHANOL <0.010 <0.010 g/dL 02/08/2022 [place] 6:12 AM CDT [facility] LABORATORY Specimen Anatomical Collection Method Collection Time Receive d Time (Source) Location / / Volume Laterality Blood BLOOD SPECIMEN / Butterfly / 02/08/2022 5:23 AM 02/08 5:46 Unknown Unknown CDT AM CDT Gerard Cruz MD CHEMISTRY Performing Organization Address City/[facility]/ZIP Code Phon e Number [facility] [address] [place] [address] (ABNORMAL) Magnesium (02/08/2022 5:23 AM CDT) athologist Signature MAGNESIUM 1.3 (L) 1.6 - 2.6 02/08/2022 [place] mg/dL 6:12 AM T [facility] LABORATORY Specimen Anatomical Collection Method Collection Time Receive d Time (Source) Location / / Volume Laterality Blood BLOOD SPECIMEN / Butterfly / 02/08/2022 5:23 AM 02/08 5:46 Unknown Unknown CDT AM CDT Gerard Cruz MD CHEMISTRY Performing Organization Address City/State/ZIP Code Phon e Number [facility] [address] [place] [address] Lipase (02/08/2022 5:23 AM CDT) athologist Signature LIPASE 11.7 8.0 - 78.0 02/08/2022 [place] IU/L 6:10 AM CDT [facility] LABORATORY Specimen Anatomical Collection Method Collection Time Receive d Time (Source) Location / / Volume Laterality Blood BLOOD SPECIMEN / Butterfly / 02/08/2022 5:23 AM 02/08 5:46 Unknown Unknown CDT AM CDT Gerard Cruz MD CHEMISTRY Performing Organization Address City/State/ZIP Code Phon e Number [facility] [address] [place] [address] (ABNORMAL) Complete Metabolic Panel (02/08/2022 5:23 AM CDT) [facility] Method Time Signature SODIUM 139 135 - 145 02/08/2022 [place] mmol/L 6:[address] [facility] LAB[facility]ORY POTASSIUM 3.9 3.5 - 5.0 02/08/2022 [place] mmol/L 6:[address] [facility] LABORATORY CHLORIDE 108 98 - 110 02/08/2022 [place] mmol/L 6:[address] [facility] LABORATORY CO2,TOTAL 22 21 - 31 02/08/2022 [place] mmol/L 6:[address] [facility] LABORATORY ANION GAP 9 5 - 18 02/08/2022 [facility] 6:[address] [facility] LABORATORY GLUCOSE 125 (H) 65 - 100 02/08/2022 [place] mg/dL 6:[address] [facility] LABORATORY CALCIUM 8.3 (L) 8.5 - 02/08/2022 [place] 10.5 6:[address] [facility] mg/dL LABORATORY BUN 8 8 - 25 02/08/2022 [place] mg/dL 6:[address] [facility] LABORATORY CREATININE 0.63 0.57 - 02/08/2022 [place] 1.11 6:[address] [facility] mg/dL LABORATORY BUN/CREAT RATIO 13 10 - 20 02/08/2022 [place] 6:[address] [facility] LABORATORY ALBUMIN 3.5 3.5 - 5.2 02/08/2022 [place] g/dL 6:[address] [facility] LABORATORY PROTEIN,TOTAL 5.0 (L) 6.0 - 8.0 02/08/2022 [place] g/dL 6:[address] [facility] LABORATORY GLOBULIN 1.5 (L) 2.0 - 3.7 02/08/2022 [place] g/dL 6:[address] [facility] LABORATORY A/G RATIO 2.3 (H) 1.0 - 2.0 02/08/2022 [place] 6:[address] [facility] LABORATORY BILIRUBIN,TOTAL 10.7 (H) 0.2 - 1.2 02/08/2022 [place] mg/dL 6:[address] [facility] LABORATORY ALK PHOSPHATASE 293 (H) 50 - 136 02/08/2022 [place] IU/L 6:[address] [facility] LABORATORY ALT (SGPT) 20 8 - 45 02/08/2022 [place] IU/L 6:[address] [facility] LABORATORY AST (SGOT) 57 (H) 2 - 40 02/08/2022 [place] IU/L 6:[address] [facility] LABORATORY eGFR >90 >90 02/08/2022 [facility] mL/min/1. 6:[address] [facility] 73m2 LABORATORY Comment: As of 2021, [...] Laterality Blood BLOOD SPECIMEN / Butterfly / 02/08/2022 5:23 AM 02/08 5:46 Unknown Unknown CDT AM CDT Gerard Cruz MD CHEMISTRY Performing Organization Address City/State/ZIP Code Phon e Number [facility] [address] [place] [address] EKG 12 Lead (02/08/2022 4:51 AM CDT) Component Value Ref Range Test Analysis Performed Pathologis t Method Time At Signature Interpretation Sinus tachycardia BEYOND NOW Possible Left atrial enlargement Borderline ECG Compared to 11/09/21 ecg NSR is no longer present Ventricular Rate 105 BPM BEYOND NOW Atrial Rate 105 BPM BEYOND NOW P-R Interval 154 ms BEYOND NOW QRS Duration 86 ms BEYOND NOW QT 384 ms BEYOND NOW QTc 507 ms BEYOND NOW P [place] 50 degrees BEYOND NOW R [place] 37 degrees BEYOND NOW T [place] 26 degrees BEYOND NOW Specimen Anatomical Collection Method Collection Time Receive d Time (Source) Location / / Volume Laterality 02/08/2022 4:51 AM 5:56 CDT AM CDT Gerard Cruz MD EKG ORD Performing Organization Address City/State/ZIP Code Phon e Number BEYOND NOW [place], [place] RBC W TYPE AND SCREEN (02/08/2022 12:56 AM CDT) [facility] Method Time Signature ABORH B Rh 02/08/2022 [place] Positive 7:37 AM CDT [facility] LAB[facility]ATORY BLOOD BANK ANTIBODY Negative Negative 02/08/2022 [place] SCREEN 7:37 AM CDT [facility] LAB[facility]ORY BLOOD BANK SPECIMEN 02/11/22 02/08/2022 [place] EXPIRATION 23:59 7:37 AM CDT MEDICAL DATE/TIME CENTER LABORATORY BLOOD BANK Specimen Anatomical Collection Method Collection Time Receive d Time (Source) Location / / Volume Laterality Blood BLOOD SPECIMEN / Butterfly / 02/08/2022 12:56 022 7:05 Unknown Unknown AM CDT AM CDT Gerard Cruz MD BLOOD BANK Performing Organization Address City/[facility]/ZIP Code Phon e Number [facility] [address] [place] [address] BLOOD BANK from Last 3 Months Insurance Payer Benefit Plan / Subscriber ID Effective Dates Phone Addre ss Type Group [employer] [place] [employer] [id number] 2018-Present [address] [address] [place] [address] MEDICAID [place] MEDICAID [id number] 2015-Presen [address] [address] [place] [address] Catia Carias E Personal/Famil Self 1990 AP T 3 y (Home) [address] [place] [address] Catia Carias E Motor Vehicle Self 1990 [address] (Home) [facility] [place] [address] Advance Directives Latest Code Status on File Code Status Date Activated Date Inactivated Comments Full Code 02/08/2022 10:16 AM 02/09/2022 6:52 PM Code Status Discussion: Reviewed Preferences Full Code 08/26/2021 1:03 PM 08/27/2021 2:31 PM Code Status Discussion: Reviewed Preferences Full Code 01/30/2021 5:11 PM 01/31/2021 6:49 PM Code Status Discussion: Not Discussed Full Code 01/23/2021 2:38 AM 01/26/2021 5:14 PM Code Status Discussion: Not Discussed Per Existing Order Full Code 11/07/2019 12:37 AM 11/08/2019 9:50 PM Care Teams Nascar Driver Relationship Specialty Start Date End Date Ana Red PA-C PCP - General Physician Erp Engineer 02/09/[address] [place] [address] ADI PANIAGUA [phone]
--- OUTSIDE RECORDS SUMMARY | 2022-02-10 09:45 | XMS_ITS | Encounter Summary ---
:1990 Author Organization [facility] Address [address] [place] [id number] Phone Care Team Providers Name Role Phone [...] No / Unsu re 07/08/2021 9:38 AM VP [employer] someone who was confirmed or suspected to have Coronavirus/COVID-19? documented as of this encounter Plan of Treatment Not on filedocumented as of this encounter Visit Diagnoses Not on filedocumented in this encounter
--- OUTSIDE RECORDS SUMMARY | 2022-02-10 09:45 | XMS_ITS | Encounter Summary ---
:1990 Author Organization [facility] Address [address] [place] [address] Care Team Providers Name Role Phone [facility], [facility] Primary Care Provider [phone] [facility] Unavailable [phone] Reason for Referral (Routine) - Closed Specialty Diagnoses / Procedures Referred By Contact Refer red To Contact Procedures Gonzalo Tavera MD Return to previous diet [address] [place], [place] [address] Referral ID Status Reason Start Date Expiration Date Visits Requ ested Visits Authorized [id number] Closed 10/02/2018 10/02/2019 1 1 (Routine) - Closed Specialty Diagnoses / Procedures Referred By Contact Refer red To Contact Procedures Gonzalo Tavera MD Normal activity as tolerated [address] [place], [place] [address] Referral ID Status Reason Start Date Expiration Date Visits Requ ested Visits Authorized [id number] Closed 10/02/2018 10/02/2019 1 1 (Routine) - Closed Specialty Diagnoses / Procedures Referred By Contact Refer red To Contact Gonzalo Tavera MD [facility], [facility] [address] [place], [place] [id number] 2 [place] [address] Fax: Referral ID Status Reason Start Date Expiration Date Visits Requ ested Visits Authorized [id number] Closed 10/02/2018 10/02/2019 1 1 Question Answer Specify time frame for follow up? 1 Week (Routine) - Closed Specialty Diagnoses / Procedures Referred By Contact Refer red To Contact Procedures Gonzalo [facility]avera [facility] os Medicine Pam MD [address] Referral ID Status Reason Start Date Expiration Date Visits Requ ested Visits Authorized [id number] Closed 10/02/2018 10/02/2019 1 1 Reason for Visit Inpatient Admission Specialty Diagnoses / Procedures Referred By Contact Refer red To Contact Diagnoses Acute hepatitis Hepatitis, Acute Referral ID Status Reason Start Date Expiration Date Visits Requ ested Visits Authorized [id number] 1 1 Encounter Details Date Type Department Care Team Description 09/30/2018 - Hospital Encounter W2 Hm-Hospitalist [facility] [place] [address] Acute hepatitis 10/02/[address] [place] [address] Gonzalo Tavera MD [facility] [place] [address] [place] [address] Social History Tobacco Use Types Packs/Day Years Used Date Smoking Tobacco: Some Days Cigarettes 0.1 5 S tarted: 2013 Smokeless Tobacco: Never Tobacco Cessation: Ready to Quit: No; Co unseling Given: No Comments: Currently smokes 1 cigarettes every 2 days. Alcohol Use Standard Drinks/Week Comments Yes 8 (1 standard drink = 0.6 oz pure alcoho l) 2-3 drinks 4 times per week Sex Assigned at Date Recorded Not on [...] [facility] HOSPITAL DISCHARGE SUMMARY Patient Name: Catia Carias Date of : 1990 Admission Date: 09/30/2018 Discharge Date: 10/02/2018 She will be discharged to home. Primary care: [facility] Consultants: 1. Gastroenterology 2. Orthopedics DISCHARGE DIAGNOSES: [...] to Excess Tylenol Use:??Presented as direct admissionfrom [address] in [place]??with??abdominal pain and vomiting??x 2??days. ??She had been [...] open reduction internal fixation on 08/29/[address]??[address] Omar Rodriguez. ??Has been having [...] Up Referral Priority: Routine Referred to Provider: [facility] Number of Visits Requested: 1 CODE [...] Tavera MD, Hospitalist Internal Medicine and Pediatrics [facility] Medicine Time: over 30 minutes documented [...] live longer. For further assistanceplease call the QuitHelloSign Helpline at [phone] or go to their website [email or web address]. documented in this encounter Medications at Time [...] 10/02/2018 12:02 PM CDT Catia Carias 1990 [id number] P: Discharge A: Discharged ambulatory to home at 1145 escorted by self I: Discharge information and arrangements included: review of written discharge instructions, belongings list completed. R:Patient expressed understanding of information.. Andreas Paul RN - 10/02/2018 3:52 AM CDT Med-Surg Care Progression Note Type: Shift to shift summary [id number] Length of stay: 2 days Code Status: [...] with questions or concerns. Criselda Coker MD [facility] Dig[facility] [phone] Evi Londono RN - 10/01/2018 12:22 PM [...] [facility] [...] Tylenol Use: Presented as direct admission from [address] in [place] with abdominal pain and vomiting x 2 [...] open reduction internal fixation on 08/29/[address] Omar Rodriguez. Has been [...] pain remains uncontrolled may need to consider TRIMMER TAILER. Consulted Orthopedics for assistance with management. Defer further imaging to Orthopedics. I'm worried about progressive or new ulnar nerve impingement or damage. Will start gabapentin 300 mg TID. 3. Recent Pancreatitis: Was admitted at [address] in [place] 09/08/2018 - 09/11/2018 for pancreatitis. Etiology was [...] Tavera MD, Hospitalist Internal Medicine and Pediatrics [facility] Medicine Pager: [phone] SKIN: Surgical Incision Left;Posterior Elbow (Active) No [...] Parker RN - 10/01/2018 3:50 AM CDT 10/01/18 035 MD/Provider Notify Reason MD/Provider Notified Patient Update [...] DVT/Anticoagulation Progression: Not applicable [facility]t tylenol overdose occurring because of pt [...] Progression: Not applicable Spoke with Dung from Poison Control this AM. He wants us to check LFTs and INR at 2300 tonight, these have been scheduled. Someone from poison control will call back around 0000 tonight to verify theselabs with us. VS have been unstable most of day with pt being somewhat hypotensive and tachycardic. Paged hospitalists multiple times, awaiting answer. Pt is not experiencing any SOB, chest pain, lightheadedness. States her pain in her arm is 8.5/10. PRN morphine given multiple times from Q 1 H order without much im provement. Ciara Booker, RN Ciara Booker, RN Aaliyah Mistry RN - 09/30/2018 10:35 [...] to call for help, name of assigned patient care representative, initialphysician orders, hourly rounding procedures, belongings checklist, [...] stability. The patient is direct admission from [facility] with acute hepatitis likely due to [...] 11:00 AM on . Per labs [facility] LFTs are elevated reveals ALt of 624, AST of 3,955, and ALKP of 186. Total bilirubin is 1.2. Creatinine is 0.56, sodium is 136, HCO3 of 16, and potassium 4.5. INR is 1.5. Acetaminophem level is < 3. Lipase is 78.5. Serum test is negative. Lactic acid level is 2.9. Suspect livery dysfunction is contributing lactic acidosis at outside facility. [facility] Physician discussed case w/ GI Physician Dr. Davis who recommended pt be transferred [facility] as direct admission and be started on [...] far since being started on it at [facility] in conjuction with full time staff interpreter and Pharmacist. Has received initial bag of [...] 09/30/2018 3:39 AM CDT Received report from [facility] in [place]. 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 LFT's: AST 3955 ALT 624 Alk Phos 186 Lactate 2.9 Pt received 1 liter LR in the ED and the N-acetyl cysteine was started. First dosing was 65388 mg in200 ml, completed in the ED, and 3380mg in 500 ml was initiated before transport. documented in this encounter H&P Notes Gonzalo Tavera MD - 09/30/2018 9:58 AM CDT [facility] ADMISSION HISTORY AND PHYSICAL Patient Name: Catia Carias Address: [address] [place] [address] Age: 28 y.o. Sex: Female Admission Date/Time: 09/30/2018 4:11 AM Primary Care Provider: [facility] Admitting provider: [facility]-Hospitalist, Dr. Gonzalo Tavera Informant: patient as [...] open reduction internal fixation on 08/29/[address] Catia states that she was discharged [...] Oxycodone. Catia ended up being admitted at [address] 09/08/18 - 09/11/18 for acute pancreatitis which initially required Morphine TRIMMER TAILER for pain c ontrol. Catia followed up [...] vomited 6 times therefore she went to [place] [address] emergency department to be evaluated. Mario Alberto kang states that she only has abdominal pain when she is vomiting. She vomited multiple times in the emergency department. She was transferred to [facility] for further evaluation by Gastroenterology and states [...] file Gets together: Not on file Attends restorationist service: Not on file Active member of [...] Tylenol Use: Presented as direct admission from [address] in [place] with abdominal pain and vomiting x 2 [...] open reduction internal fixation on 08/29/[address] Omar Rodriguez. Has been having uncontrolled neuropathic pain which has not responded to Gabapentin. Pain has minimally improved prior to admission with Percocet or Oxycodone. Treating pain with PRN IV Morphine. If pain remains uncontrolled may need to consider TRIMMER TAILER. Consulted Orthopedics for assistance with management. Defer further imaging to Orthopedics. I'm worried about progressive or new ulnar nerve impingement or damage. Will start gabapentin 300 mg TID. 3. Recent Pancreatitis: Was admitted at [address] in [place] 09/08/2018 - 09/11/2018 for pancreatitis. Etiology was [...] our joint decision making. Kimberly Rosas PA-C [facility] Medicine Service Pager: [phone] ADDENDUM: Chart reviewed. Patient seen and examined [...] Tavera MD, Hospitalist Internal Medicine and Pediatrics [facility] Medicine Pager: [phone] documented in this encounter Consult Notes Xuan Block, GASKET FORMER, STEAM TENDER - 09/30/2018 2:24 PM CDTAssociated Order(s): CONSULT ORTHOPEDIC SURGERY ORTHOPEDIC CONSULT CHIEF COMPLAINT: left arm nerve pain HISTORY of PRESENT ILLNESS: Catia Carias is a 28 y.o. year old female who had an orif of her left distal humerus in [place] on 08/29/18. She has had 2 f/u [...] or concerns. Discussed with Hospital medicine. Xuan Block, YARITZA, STEAM TENDER Felicita Dia PA-C - 09/30/2018 10:19 AM CDTAssociated Order(s): CONSULT GASTROENTEROLOGY Images from the original note were not included. GI CONSULT SERVICE CONSULT NOTE Patient Name: Catia Carias Admission Date/Time: 09/30/2018 4:11 AM [facility] Dr. Conrad [facility] Attending Physician: Mele-Hospitalist I was asked to see this patient at the request of Dr. Conrad for evaluation of acute hepatitis. REASON FOR CONSULTATION: Acute hepatitis CC: abdominal pain, nausea and vomiting HISTORY OF PRESENT ILLNESS: 28 y.o. female with a history of ORIF of left upper extremity and acute pancreatitis of unclear etiology 10 days postop who directly admitted from [facility] ED with acute hepatitis on 09/30/2018. [...] several times a week. [facility]29 with 2 3 days [...] on NAC protocol. She was transferred to [facility]. PAST MEDICAL HISTORY: Past Medical History: Diagnosis [...] Hickey, Quantitiy: 10 tablets No refils ??? potassium [...] will continue to follow. Felicita Dia PA-C [facility] Dig[facility]ive [facility] Pager: LOC&ALL Weekends and after 5 p.m., call [phone] documented in this encounter Nursing Notes Jyoti [...] SpO2 94% ? No BMI 27.44 kg/m?? Mrali Girard RN Virginia Bob RN - 09/30/2018 [...] d/c. Should d/c needs arise, please page/call Director Of Outreach to update. Care management is available should further needs arise. Barriers to discharge: Medical stability Care management will continue to follow. Ivet Bob RN Case Manager 2W Observation Unit Pager: [phone] documented in this encounter Miscellaneous Notes Result Encounter Note - Samym Mack PA-C - 10/02/2018 12:02 PM CDT SAMMY Screen positive. Forwarded to Dr. Tavera. Sammy Mack PA-C [facility] Medicine Service Pager: [phone] Med Reconciliation - Emperatriz Corral - 09/30/2018 1:52 PM CDT PHARMACY MEDICATION RECONCILIATION NOTE MEDICATION RECONCILIATION on admission by pharmacy has been completed. Prior to admission medications were reviewed with patient and [facility] presciption refill information. The OFFICE EXECUTIVE medication list has been updated and reflected in the chart below. Please use the OFFICE EXECUTIVE medication section for ordering home doses during admission. Medication related issues including pertinent changes made to the OFFICE EXECUTIVE list by pharmacy: (discrepancies, interactions, additions, removal, [...] participate in the care of this patient. Emperatriz Corral Phone #:[phone] or [phone] Time spent reconciling meds:20 min documented in [...] time period is included. P athologist Signature PROTIME 12.9 10.0 - 13.0 10/02/2018 [facility] sec. 8:58 AM CDT HEALTH LABORATORY INR 1.2 1.0 - 1.2 10/02/2018 [facility] 8:58 AM CDT [facility] LABORATORY Specimen Anatomical Collection Method Collection Time Receive d Time (Source) Location / / Volume Laterality Blood 10/02/2018 8:23 AM 9 8:40 CDT AM CDT Kimberly Rosas PA-C COAGULATION ORDERABLE Performing Organization Address City/[facility]/ZIP Code Phon e Number [facility] [address] [place] [address] LABORATORY Smooth Muscle Antibody (10/02/2018 8:22 AM CDT) [facility] Method Time Signature Smooth Muscle Negative Negative 10/04/2018 [facility] Screen 10:17 AM CDT LABORATORIES Comment: ADDITIONAL INFORMATIO N This test was developed and its performa nce characteristics determined by [facility] in a manner co nsistent with CLIA requirements. This test has not been norah ared or approved by the U.S. Food and Drug Administration. Test Performed by: [facility] [address] [place], [place] [address] Specimen Anatomical Collection Method Collection Time Receive d Time (Source) Location / / Volume Laterality Blood 10/02/2018 8:22 AM 9 8:39 CDT AM CDT Criselda Coker MD SEND OUT ORDERABLE Performing Organization Address City/[facility]/ZIP Code Phon e Number [facility] [address] [place] [address] (ABNORMAL) CBC- Daily AM (10/02/2018 8:22 AM CDT)Only the most recent of2 resultswithin the time period is included. [facility] Method Time Signature WBC 7.5 4.3 - 10.8 10/02/2018 [facility] K/uL 8:45 AM CDT HEALTH LABORATORY RBC 3.77 (L) 4.20 - 10/02/2018 [facility] 5.40 M/uL 8:45 AM CDT HEALTH LABORATORY HEMOGLOBIN 13.0 12.0 - 10/02/2018 [facility] 16.0 gm/dL 8:45 AM CDT HEALTH LABORATORY HEMATOCRIT 39.2 36.0 - 10/02/2018 [facility] 48.0 % 8:45 AM CDT HEALTH LABORATORY MCV 104 (H) 80 - 100 10/02/2018 [facility] fl 8:45 AM CDT HEALTH LABORATORY MCH 35 (H) 27 - 33 pg 10/02/2018 [facility] 8:45 AM CDT HEALTH LABORATORY MCHC 33 33 - 36 10/02/2018 [facility] gm/dL 8:45 AM T HEALTH LABORATORY RDW 13.3 11.5 - 10/02/2018 [facility] 14.5 % 8:45 AM CDT HEALTH LABORATORY PLATELET COUNT 218 150 - 400 10/02/2018 [facility] K/UL 8:45 AM [facility] HEALTH LABORATORY MPV 10.3 6.5 - 12 10/02/2018 [facility] 8:45 AM T HEALTH LABORATORY Specimen Anatomical Collection Method Collection Time Receive d Time (Source) Location / / Volume Laterality Blood 10/02/2018 8:22 AM 9 8:41 CDT AM CDT Marli Girard RN HEMATOLOGY ORDERABLE Performing Organization Address City/State/ZIP Code Phon e Number [facility] [address] [place] [address] LABORATORY Lipase (10/02/2018 8:22 AM CDT)Only the most recent of3 resultswithin the time period is included. P athologist Signature LIPASE 221 73 - 350 10/02/2018 [facility] IU/L 9:06 AM CDT HEALTH LABORATORY Specimen Anatomical Collection Method Collection Time Receive d Time (Source) Location / / Volume Laterality Blood 10/02/2018 8:22 AM 9 8:40 CDT AM CDT Kimberly Rosas PA-C CHEMISTRY ORDERABLE Performing Organization Address City/State/ZIP Code Phon e Number [facility] [address] [place] [address] [phone] LABORATORY (ABNORMAL) Basic Metabolic Profile Daily AM (10/02/2018 8:22 AM CDT)Only the most recent of4 resultswithin the time period is included. [facility] Method Time Signature SODIUM 140 136 - 145 10/02/2018 [facility] mmol/L 9:18 AM [facility] LABORATORY POTASSIUM 4.1 3.5 - 5.1 10/02/2018 [facility] mmol/L 9:18 AM [facility] LABORATORY CHLORIDE 107 98 - 112 10/02/2018 [facility] mmol/L 9:18 AM [facility] LABORATORY CARBON DIOXIDE 28 21 - 32 10/02/2018 [facility] mmol/L 9:18 AM [facility] LABORATORY BUN (UREA 1 (L) 7 - 24 10/02/2018 [facility] NITRO) mg/dL 9:18 AM [facility] LABORATORY CREATININE 0.35 (L) 0.55 - 10/02/2018 [facility] 1.02 mg/dL 9:18 AM [facility] LABORATORY EST GFR >60 >60 mL/min 10/02/2018 [facility] (CKD-EPI) 9:18 AM [facility] LABORATORY EST GFR IF >60 >60 mL/min 10/02/2018 [facility] AM 9:18 AM [facility] LABORATORY GLUCOSE 100 74 - 106 10/02/2018 [facility] mg/dL 9:18 AM [facility] LABORATORY CALCIUM, SERUM 8.6 8.5 - 10.1 10/02/2018 [facility] mg/dL 9:18 AM [facility] LABORATORY ANION GAP 5.0 0.0 - 15.0 10/02/2018 [facility] mmol/L 9:18 AM [facility] LABORATORY Specimen Anatomical Collection Method Collection Time Receive d Time (Source) Location / / Volume Laterality Blood 10/02/2018 8:22 AM 9 8:40 CDT AM CDT Kimberly Rosas PA-C CHEMISTRY ORDERABLE Performing Organization Address City/State/ZIP Code Phon e Number [facility] [address] [place] [address] LABORATORY (ABNORMAL) Liver Profile (10/02/2018 8:22 AM CDT)Only the most recent of5 resultswithin the time period is included. Analysis Performed At Patho logist Time Signature ALT 271 (H) 12 - 68 10/02/2018 [facility] IU/L 9:18 AM [facility] LABORATORY ALKALINE 165 (H) 45 - 117 10/02/2018 [facility] P'TASE IU/L 9:18 AM [facility] LABORATORY AST (SGOT) 274 (H) 12 - 37 10/02/2018 [facility] IU/L 9:18 AM [facility] LABORATORY PROTEIN TOTAL 6.0 (L) 6.4 - 8.2 10/02/2018 [facility] g/dL 9:18 AM [facility] LABORATORY ALBUMIN 3.0 (L) 3.4 - 5.0 10/02/2018 [facility] g/dL 9:18 AM [facility] LABORATORY BILIRUBIN-DIRE 0.56 (H) 0.05 - 10/02/2018 [facility] CT 0.24 mg/dL 9:18 AM [facility] LABORATORY BILIRUBIN-TOTA 1.2 (H) 0.2 - 1.0 10/02/2018 [facility] L mg/dL 9:18 AM [facility] LABORATORY Specimen Anatomical Collection Method Collection Time Receive d Time (Source) Location / / Volume Laterality Blood 10/02/2018 8:22 AM 9 8:40 CDT AM CDT Kimberly Rosas PA-C CHEMISTRY ORDERABLE Performing Organization Address City/State/ZIP Code Phon e Number [address] [place] [address] LABORATORY Magnesium (10/02/2018 8:22 AM CDT)Only the most recent of4 resultswithin the time period is included. P athologist Signature Magnesium 2.0 1.8 - 2.4 10/02/2018 [facility] mg/dL 9:07 AM [facility] LABORATORY Specimen Anatomical Collection Method Collection Time Receive d Time (Source) Location / / Volume Laterality Blood 10/02/2018 8:22 AM 9 8:40 CDT AM CDT Robby Conrad MD CHEMISTRY ORDERABLE Performing Organization Address City/State/ZIP Code Phon e Number [address] [place] [address] LABORATORY Potassium, Serum (10/01/2018 8:16 PM CDT)Only the most recent of3 resultswithin the time period is included. P athologist Signature POTASSIUM 4.2 3.5 - 5.1 10/01/2018 [facility] mmol/L 8:50 PM CDT HEALTH LABORATORY Specimen Anatomical Collection Method Collection Time Receive d Time (Source) Location / / Volume Laterality Blood 10/01/2018 8:16 PM 9 8:32 CDT PM CDT Marli Girard RN CHEMISTRY ORDERABLE Performing Organization Address City/State/ZIP Code Phon e Number [address] [place] [address] [phone] LABORATORY (ABNORMAL) Acetaminophen (10/01/2018 4:43 PM CDT)Only the most recent of3 resultswithin the time period is included. Patholo gist Method Time Signature ACETAMINOPHEN 2 (L) 10 - 30 10/01/2018 [facility] (TYLENOL) ug/mL 5:34 PM CDT HEALTH LABORATORY Specimen Anatomical Collection Method Collection Time Receive d Time (Source) Location / / Volume Laterality Blood 10/01/2018 4:43 PM 9 5:07 CDT PM CDT Erika Silver DO CHEMISTRY ORDERABLE Performing Organization Address City/State/ZIP Code Phon e Number [address] [place] [address] [phone] LABORATORY (ABNORMAL) IgG (10/01/2018 7:08 AM CDT) P athologist Signature IGG 530 (L) 700-1,600 10/01/2018 [facility] mg/dL 2:03 PM CDT HEALTH LABORATORY Specimen Anatomical Collection Method Collection Time Receive d Time (Source) Location / / Volume Laterality Blood 10/01/2018 7:08 AM 9 7:22 CDT AM CDT Criselda Coker MD CHEMISTRY ORDERABLE Performing Organization Address City/[facility]/ZIP Code Phon e Number [address] [place] [address] LABORATORY (ABNORMAL) SAMMY Screen (10/01/2018 7:08 AM CDT) Analysis Performed At Patho logist Time Signature SAMMY SCRN Positive (A) Negative 10/03/2018 [facility] 1:37 PM CDT HEALTH LABORATORY Specimen Anatomical Collection Method Collection Time Receive d Time (Source) Location / / Volume Laterality Blood 10/01/2018 7:08 AM 9 7:22 CDT AM CDT Criselda Coker MD CHEMISTRY ORDERABLE Performing Organization Address City/State/ZIP Code Phon e Number [facility] [address] [place] [address] LABORATORY XR ELBOW LT (09/30/2018 1:16 PM [...] SIGNED BY DR. Lloyd Arcos Xuan Block GASKET FORMER, STEAM TENDER XRAY ORDERABLE Hepatitis A/B/C Panel (09/30/2018 6:42 AM CDT) Patholo gist Method Time Signature HEP BC IGM DELBERT Non-Reacti Non-Reacti 09/30/2018 [facility] ve 8:24 AM CDT HEALTH LABORATORY HEP A IGM DELBERT Non-Reacti Non-Reacti 09/30/2018 [facility] L ve ve 8:24 AM CDT HEALTH LABORATORY HEP BS ANTIGEN Non-Reacti Non-Reacti 09/30/2018 [facility] AL ve ve 8:24 AM CDT HEALTH LABORATORY Hepatitis C Non-Reacti Non-Reacti 09/30/2018 [facility] Antibody ve ve 8:24 AM CDT HEALTH LABORATORY Specimen Anatomical Collection Method Collection Time Receive d Time (Source) Location / / Volume Laterality Blood 09/30/2018 6:42 AM 9 6:59 CDT AM CDT Robby Conrad MD IMMUNOLOGY ORDERABLE Performing Organization Address City/[facility]/ZIP Code Phon e Number [address] [address] LABORATORY Lactic Acid (09/30/2018 6:42 AM CDT) P athologist Signature LACTIC ACID 1.9 0.7 - 2.1 09/30/2018 [facility] mmol/L 7:03 AM T [facility] LAB[facility] Specimen Anatomical Collection Method Collection Time Receive d Time (Source) Location / / Volume Laterality Blood 09/30/2018 6:42 AM 9 7:00 CDT AM CDT Robby Conrad MD CHEMISTRY ORDERABLE Performing Organization Address City/[facility]/ZIP Code Phon e Number [address] [address] LABORATORY (ABNORMAL) CBC / Diff (09/30/2018 6:42 AM CDT) Patholo gist Method Time Signature WBC 14.6 (H) 4.3 - 09/30/2018 [facility] 10.8 K/uL 6:59 AM [facility] RBC 3.90 (L) 4.20 - 09/30/2018 [facility] 5.40 M/uL 6:59 AM [facility]ORY HEMOGLOBIN 13.6 12.0 - 09/30/2018 [facility] 16.0 6:59 AM T [facility] gm/dL LABORATORY HEMATOCRIT 39.9 36.0 - 09/30/2018 [facility] 48.0 % 6:59 AM CDT [facility]ALTH LABORATORY MCV 102 (H) 80 - 100 09/30/2018 [facility] fl 6:59 AM CDT HEALTH LABORATORY MCH 35 (H) 27 - 33 09/30/2018 [facility] pg 6:59 AM CDT HEALTH LABORATORY MCHC 34 33 - 36 09/30/2018 [facility] gm/dL 6:59 AM CDT HEALTH LABORATORY RDW 13.2 11.5 - 09/30/2018 [facility] 14.5 % 6:59 AM CDT HEALTH LABORATORY PLATELET COUNT 257 150 - 400 09/30/2018 [facility] K/UL 6:59 AM CDT HEALTH LABORATORY MPV 9.7 6.5 - 12 09/30/2018 [facility] 6:59 AM CDT HEALTH LABORATORY PMN % 90.9 % 09/30/2018 [facility] 6:59 AM CDT HEALTH LABORATORY IG% 0.3 <=1.0 % 09/30/2018 [facility] 6:59 AM CDT HEALTH LABORATORY LYMPH % 5.1 % 09/30/2018 [facility] 6:59 AM CDT HEALTH LABORATORY MONO % 3.2 % 09/30/2018 [facility] 6:59 AM CDT HEALTH LABORATORY EOS % 0.3 % 09/30/2018 [facility] 6:59 AM CDT HEALTH LABORATORY BASO % 0.2 % 09/30/2018 [facility] 6:59 AM CDT HEALTH LABORATORY PMN ABSOLUTE 13.28 (H) 1.80 - 09/30/2018 [facility] 7.80 K/uL 6:59 AM CDT HEALTH LABORATORY IG ABSOLUTE 0.05 K/uL 09/30/2018 [facility] 6:59 AM CDT HEALTH LABORATORY LYMPH ABSOLUTE 0.74 (L) 1.00 - 09/30/2018 [facility] 4.00 K/uL 6:59 AM CDT HEALTH LABORATORY MONO ABSOLUTE 0.47 0.00 - 09/30/2018 [facility] 1.00 K/uL 6:59 AM CDT HEALTH LABORATORY EOS ABSOLUTE 0.04 0.00 - 09/30/2018 [facility] 0.45 K/uL 6:59 AM CDT HEALTH LABORATORY BASO ABSOLUTE 0.03 0.00 - 09/30/2018 [facility] 0.20 K/uL 6:59 AM CDT HEALTH LABORATORY NUCL RBC % 0.0 0.0 - 0.0 09/30/2018 [facility] /100 WBC 6:59 AM CDT HEALTH LABORATORY NUCL RBC 0.00 K/uL 09/30/2018 [facility] ABSOLUTE 6:59 AM CDT HEALTH LABORATORY Specimen Anatomical Collection Method Collection Time Receive d Time (Source) Location / / Volume Laterality Blood 09/30/2018 6:42 AM 9 6:56 CDT AM CDT Robby A Matter HEMATOLOGY ORDERABLE Performing Organization Address City/State/ZIP Code Phon e Number [facility] [id number] [place] [address] LABORATORY documented in this encounter Visit Diagnoses [...] NEEDED, Starting on Wed at 0441, Until Wed10/02/18 at 1802, IV line placement, IV start or restart magnesium hydroxide (MILK OF MAGNESIA) s uspension 30 mL 30 mL, oral, DAILY NEEDED, Starting o n 10/01/18 at 0814, Until Wed10/02/18 at 1802, constipation, if no response after polyethylene glycol MAGNESIUM REPLACEMENT INTRAVENOUS - NOT FOR DOCUMENTATION PURPOSES Intravenous, PER PROTOCOL, Starting on Wed09/30/18 at 0745, Until Wed10/02/18 at 1802 magnesium sulfate 2 gram / [...] NEEDED, Starting on 10/01/18 at 0814, Until Wed10/02/18 at 1802, constipation, if no response to [...] oral, TWICE A DAY, First dose on Wed10/01/18 at 0815, Until Discontinued Given 10/01/2018 7:12 [...] Discontinued gabapentin (NEURONTIN) capsule 300 mg (COMPLETED) 08 (Given - Provider: Jyoti Bella RN) 300 mg, oral, ONCE, 1 dose, On 10/02/18 at 0815 gabapentin (NEURONTIN) capsule 600 mg 600 mg, oral, THREE TIMES A DAY, First d ose on 10/02/18 at 1400, Until Discontinued ibuprofen [...] Wed09/30/18 at 0745, Until 10/02/18 at 1802 POTASSIUM REPLACEMENT ORAL - NOT FOR DOCUMENTATION PURPOSES oral, PER PROTOCOL, Starting Wed09/30/18 at 0745, Until 10/02/18 at 1802, May request packets if patient requires liquid potassium. senna (SENOKOT) tablet 1-2 tablet 1124 ( Given - Provider: Evi Londono RN)1912 (Given - Provider: Marli Girard RN) 0755 (Given - Provider: Jyoti Bella RN) 1-2 tablet, oral, TWICE A DAY, First [...] 15 37 (New Bag - Provider: Marli Girard, MARIAA)1647 (Stopped - Provider: Magaly Forde RN) 1,000 mL, Intravenous, ONCE, 1 dose, On Wed09/30/18 at 1500, Administer over 60 Minutes Continuous Medication Order 09/30/2018 10/01/2018 10/02/2018 acetylcysteine (MUCOMYST) 3,380 mg in de xtrose 5 % (D5W) 500 mL IV infusion () 0500 (No Change - Provider: Amy Talamantes RN) 3,380 mg (50 mg/kg ? 67.6 kg), [...] RN) 0340 (Given - Provider: Andreas Paul, RN) 10 mL, Intravenous, NEEDED, Starting 09/30/18 at [...] Amy Talamantes RN)0806 (Given - Provider: Aaliyah Mistry, MARIAA)0912 (Given - Provider: Aaliyah Mistry, MARIAA)1017 (Given - Provider: iCara Booker, MARIAA) 1-2 mg, Intravenous, EVERY 1 HOUR NEE DED, Starting 09/30/18 at 0452, Until 09/30/18 at 1038, For moderate to severe pain. MORphine injection (conc: 4 mg/mL) 2-4 mg (CANCELED) 1 048 (Given - Provider: Ciara Booker RN)1152 (Given - Provider: Aaliyah Mistry RN)1332 (Given - Provider: Ciara Booker RN) 2-4 mg, Intravenous, EVERY 1 HOUR NEE DED, Starting 09/30/18 at 1038, Until 09/30/18 at 1448, For moderate to severe pain. MORphine injection (conc: 4 mg/mL) 2-4 mg (CANCELED) 1 544 (Given - Provider: Marli Girard RN)1851 (Given - Provider: Marli Girard RN)2206 (Given - Provider: Marli Girard RN) 0125 (Given - Provider: Carol Parker, MARIAA)0500 (Given - Provider: Carol Parker, MARIAA)0808 (Given - Provider: Evi Londono, RN)0953 (Given - Provider: Evi Londono, RN) 2-4 mg, Intravenous, EVERY 3 HOURS NE EDED, Starting 09/30/18 at 1500, Until 10/01/18 at 1051, For moderate to severe pain. ondansetron (ZOFRAN) injection 4-8 mg 14 14 (Given - Provider: Evi Londono, RN) 4-8 mg, Intravenous, EVERY 8 HOURS NE EDED, Starting 09/30/18 at 0447, Until Wed10/02/18 at 1802, Nausea & Vomiting oxyCODONE (immediate release) (ROXICODONE) tablet 5-10 mg 1329 (Given - Provider: Evi Londono, RN)1506 (Given - Provider: Evi Londono, RN)1912 (Given - Provider: aMrli Girard, MARIAA)2318 (Given - Provider: Marli Girard, MARIAA) 0338 (Given - Provider: Andreas Palu, RN)0720 (Given - Provider: Andreas Paul, MARIAA)1127 [...] 15mg. documented in this encounter Care Teams Monorail Car Operator Relationship Specialty Start Date End Date [facility] PCP - General 09/30/18 [address] [place] [id number] [facility] PCP - Primary Care Clinic [address] [place] [address] documented as of this encounter
--- OUTSIDE RECORDS SUMMARY | 2022-02-10 09:45 | XMS_ITS | Encounter Summary ---
:1990 Author Care Team Providers Name Role Phone Ervin Schroeder MD Primary Care Provider [phone] Sandoval [facility] OTHER [phone] Parris Knight (Mother) Patient Designee [phone] Jairo Rodriguez RECRUITMENT INTERN Nurse Practitioner [phone] Matthew Rollins MD Transplant Site Supervising Technical Operator [phone] [facility] Care Team Palliative Care [phone] Taylor Paul RN Palliative Care [phone] Zenobia Kirby [facility] Rod Mill Operator [phone] Reason for Visit Transition of Care Assessment [...] care for herself during the day. Scheduled RECRUITMENT INTERN follow up for next week. Nurse advised [...] Alexandre's 23/11 availab ility of a licensed journeyman electrician to provide immediate guidance over the [...] Education provided. Next Steps: Patient outreach in [facility] 3-4 weeks. [Research resources]. Taylor Paul RN Discussion Note: None recorded.Patient educational handouts: No information available. Plan of Care Patient Instructions [facility]. Reminders Provider Appointments None [...] Unknown. Past Encounters 11/27/2021 Taylor Paul RN: [address] [place] [phone], Ph. 11/05/2021 Jairo Silvano Jennifer, ACCOUNTS ADMINISTRATOR: [address] [place] [address], Ph. History of Present Illness Note: <div>Contact: Nurse performed follow-up visit via {{phone* face to face video}}. Patients' name and date of verified. </div><div>Patient story is presented {{entirely primarily*}} by the {{patient* patient's brother patient's [id number] patient's caregiver patient's daughter patient's [id number] patient's friend patient's grandchild patient's patient's sister patient's [id number]-csv patient's son patient's son-in-law patient's }} . 31 year-old, {{female* male}} with a reported history of alcoholic cirrhosis and acute respiratory failure who ap pears {{alert, oriented and answering questions appropriately* confused and not answering questions appropriately}}. </div><div>
</div><div>Start time: {{ 3:00pm#}} Stop time: {{ 3:20pm#}}</div><div>Clinician Located: {{Clinician Home Address* [place] [address] Address Patient?s Home Address}} </div><div>Patient physically located at: {{Patient's Home Address* HALF-WAY Location, Name of Facility, City/State SNF Location, Name of Facility, City/State LTC Location, Name of Facility, City/State Other Location, City, State}}</div><div>
</div> Review of Systems None recorded. Physical Exam None recorded.
--- OUTSIDE RECORDS SUMMARY | 2022-02-10 09:45 | XMS_ITS | Encounter Summary ---
:1990 Author Organization [facility] Address [address] [place] [address] Phone Care Team Providers Name Role Phone Unavailable Primary Care Provider Unavailable Reason for Visit Reason Comments Abdominal Pain Encounter Details Date Type Department Care Team Description 07/08/2021 Emergency [facility] Emergency Daniel Doe, Ascites due to Department alcoholic hepatitis [address] [facility] [address] [place], [place] [phone] Social History Tobacco Use Types Packs/Day Years Used Date Smoking Tobacco: Never Assessed Sex Assigned at Date Recorded Not on file COVID-19 Exposure Response Date Recorded In the last 10 days, have you been in contact with No / Unsu re 07/08/2021 9:38 AM ALMOND PASTE MIXER someone who was confirmed or suspected to have Coronavirus/COVID-19? documented as of this encounter Last Filed Vital Signs Vital Sign Reading Time Taken Comments Blood Pressure 114/67 07/08/2021 4:03 PM ALMOND PASTE MIXER Pulse 82 07/08/2021 4:03 PM ALMOND PASTE MIXER Temperature 36.9 ??C (98.5 ??F) 07/08/2021 6:31 AM ALMOND PASTE MIXER Respiratory Rate 16 07/08/2021 4:03 PM ALMOND PASTE MIXER Oxygen Saturation 98% 07/08/2021 4:03 PM ALMOND PASTE MIXER Inhaled Oxygen Concentration - - Weight - [...] was a pleasure caring for you today! ND PASTE MIXER AttachmentsThe following attachments cannot be sent through Care Everywhere. Fluid in the Belly (Ascites) Discharge Instructions (Welsh)documented in this encounter Medications at Time of [...] of alcoholic cirrhosis who was transferred to [facility] ED on 07/08/21 from [place] ED with pain and altered mental status. [...] who has known her for many years. [employer] shows that she most recently filled this on 06/19/21. Patient would also strongly prefer that we prescribe her something for insomnia (something other than melatonin). Do not plan on prescribing pharmacotherapyfor insomnia at this time consider recent altered mental status and complexity of her medical history. Recommended she discuss this further with her PCP and/or butcher apprentice. ?? Ervin Childs MD, 07/08/2021 4:19 PM [...] doesn't usually do. She usually lives in [facility] with her boyfriend. Patient stated her mom [...] who has known her for many years. [employer] shows that she most recently filled this [...] Psychosocial History: Lives with her boyfriend in [place], [place]. Denies alcohol use. Denies illicit drug [...] ?? Ervin Childs MD 07/08/2021 15:54 ?? 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 Patient reports [...] 07/08/2021 2:57 PM Emergency Medicine Resident PGY-1 ND PASTE MIXER Grazyna Delgadillo RN - 07/08/2021 1:19 PM CST Initial Utilization review screening completed. Patient appears to be appropriate for INPATIENT based on ammonia 110 I spoke with provider regarding inpt vs obs, advising obs appropriate, order to remain obs Final order/decision will be based upon provider's assessment of patient. Grazyna Delgadillo ED RN Clinical Coordinator Pager: [phone] [employer] ND PASTE MIXER Evon Claros RN - 07/08/2021 1:07 PM CST ED to IP Nursing Handoff Note S (Situation) Reason for Admission: 1. Ascites due to alcoholic hepatitis [facility] Precautions/Isolation: Standard Suspected Infection/Sepsis: No Restraints: [...] NA RN: Evon Claros RN Extension #: [id number] Daniel Larsen - 07/08/2021 12:04 PM CST Parris Knight, patient's mother, would like an update of her daughters condition. Daniel Guerrero MD - 07/08/2021 7:33 AM CST ED Faculty Attestation and Note Catia Carias 30 y.o. female [id number] FACULTY ATTESTATION I Hiro Doe MD, performed [...] the hospitalist. Their care was signed out [id number] with the oncoming provider Dr. Lindsay. Final Clinical Impression Abdominal pain, unclear etiology Disposition and Plan Final disposition to be determined by oncoming provider Currently planning for admission to [facility] Jessica Moyer MD, 07/08/2021 7:13 AM Emergency Medicine Resident PGY-1 ND PASTE MIXER Analilia Espitia RN - 07/08/2021 7:09 AM CST Pt transferred here from [facility] due to liver failure. Pt has been to multiple EDs in the last few days after running out of pain medication. 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 ULT GALLBLADDER Routine 07/08/2021 12:13 Results for this PM [employer]D PASTE MIXER procedure are i n the results section. ED US STAT 07/08/2021 10:30 Results for this ABDOMINAL/GALLBLADDER AM ALMOND PASTE MIXER proced ure are in the results section. EXTRA TUBE - LAVENDER Routine 07/08/2021 7:28 AM Results for this [employer]D PA[employer] M[employer]ER procedure are i n the results section. PC FREE STANDING Routine 07/08/2021 7:28 AM Resul ts for this BLOOD DRAW BY ALMOND PASTE MIXER procedure are in VENIPUNCTURE the results section. PC FREE STANDING Routine 07/08/2021 7:28 AM Resul ts for this BLOOD DRAW BY ALMOND PASTE MIXER procedure are in VENIPUNCTURE the results section. PC ELECTROLYTES PANEL STAT 07/08/2021 7:27 AM Results for this AL[employer]D PASTE MIXER procedure are i n the results section. TC LAB ER STAT STAT 07/08/2021 7:27 AM Results for this URINALYSIS ALMOND PA[employer] MIXER procedure are i n the results section. PROTHROMBIN (PT) & STAT 07/08/2021 7:27 AM Res ults for this INR ALMOND PASTE MIXER procedure are i n the results section. PC LAB TEST Routine 07/08/2021 7:27 AM Results for this AL[employer]D PA[employer] MIXER procedure are i n the results section. PC AMMONIA STAT 07/08/2021 7:27 AM Results f or this [employer]D PA[employer] M[employer]ER procedure are i n the results section. LIPASE STAT 07/08/2021 7:27 AM Results f or this AL[employer]D PA[employer] M[employer]ER procedure are i n the results section. PANEL HEPATIC STAT 07/08/2021 7:27 AM Results for this FUNCTION AL[employer]D PASTE MIXER procedure are i n the results section. documented in this encounter Results COVID-19 SURVEILLANCE (07/08/2021 1:32 PM ALMOND PASTE MIXER) [facility] Method Time Signature COVID-19 Not Detected Not Detected [facility] Comment: This test was developed and its performa nce characteristics determined by [employer]. This testing, RT-PCR, has been authorized by [...] Laterality Nasopharyngeal Swab 07/08/2021 1:32 07/08 PM ALMOND PASTE MIXER 1:40 PM ALMOND PASTE MIXER Narrative [facility] - 07/08/2021 2:11 PM ALMOND PASTE MIXER Is the patient a healthcare employee: No Is the patient a [facility]) Employee : No Daniel Doe MD LABORATORY Performing Organization Address City/State/ZIP Code Phon e Number [facility] [place] [address] GALLBLADDER (07/08/2021 12:13 PM ALMOND PASTE MIXER) Anatomical Region Laterality Modality Abdomen Ultrasound Specimen (Source) Anatomical Collection Method Collection Time Re ceived Time Location / / Volume Laterality 07/08/2021 12:53 PM ALMOND PASTE MIXER Impressions 07/08/2021 1:17 PM ALMOND PASTE MIXER Impression: Biliary sludge without shadowing gallstones. No sonographic findings to suggest acute cholecystitis. I have personally reviewed the image(s) and initial interpretation, and I agree with the findings as documented by the resident/fellow. Reading Radiologist: Daron Mccurdy Reading Resident: Gerard Webb Narrative 07/08/2021 1:17 PM ALMOND PASTE MIXER Indication: sludge on ED u/s, chronic abd [...] ULT ED US ABDOMINAL/GALLBLADDER (07/08/2021 10:30 AM ALMOND PASTE MIXER) Anatomical Region Laterality Modality Ultrasound Specimen (Source) Anatomical Location Collection Method / Collectio n Time Received Time / Laterality Volume Narrative 07/08/2021 1:12 PM ALMOND PASTE MIXER ED Abdomen/Gallbladder Ultrasound Indications: Abdominal pain Window: [...] CBC WITH PLTS/AUTO DIFF (07/08/2021 7:28 AM ALMOND PASTE MIXER) [facility] Method Time Signature WBC 5.29 4.00 - [facility] 10.00 k/cmm RBC 1.93 (L) 3.90 - [facility] 5.20 m/cmm Hgb 7.0 (AA) 11.5 - [facility] 15.7 g/dL Hematocrit 21.2 (L) 34.0 - [facility] 45.0 % MCV 109.8 (H) 80.0 - [facility] 100.0 fL MCH 36.3 (H) 25.0 - [facility] 32.0 pg MCHC 33.0 31.0 - [facility] 36.0 g/dL RDW 13.7 11.5 - [facility] 14.5 % Plt 74 (L) 150 - 400 [facility] k/cmm MPV 9.7 6.5 - 12.5 [facility] fL Automated Abs 3.54 1.70 - [facility] Neutrophil 6.50 k/cmm Comment: Preliminary ANC, Final Result t o Follow Abs Immature Granulocyte 0.01 0.00 - 0.09 k/cmm [facility] Comment: The Immature Granulocyte Absolu te count contains metamyelocytes and myelocytes. Abs Neutrophil 3.54 1.70 - 6.50 k/cmm [facility] LA B Abs Lymphocyte 1.21 0.80 - 4.00 k/cmm [facility] B Abs Monocyte 0.40 0.20 - 1.00 k/cmm [facility] Abs Eosinophil 0.10 0.00 - 0.60 k/cmm [facility] B Abs Basophil 0.03 0.00 - 0.20 k/cmm [facility] Orin Cell Slight [facility] Specimen Anatomical Collection Method Collection Time Receive d Time (Source) Location / / Volume Laterality Blood 07/08/2021 7:28 AM 9:32 ALMOND PASTE MIXER AM ALMOND PASTE MIXER Narrative [facility] - 07/08/2021 10:29 AM ALMOND PASTE MIXER Critical value for Hgb called to and julisa d back by Charly Bowman RN in ER A at 07/08/2021 10:29:44 ALMOND PASTE MIXER by Ines Bal Lance . Daniel Doe MD LABORATORY Performing Organization Address City/State/ZIP Code Phon e Number [facility] [place] [address] EXTRA TUBE - LAVENDER (07/08/2021 7:28 AM ALMOND PASTE MIXER) athologist Signature LAVENDER TUBE Stored [facility] Comment: Lavendar (EDTA) tubes collected at [facility] are stored for 3 days from the collection date. Specimen Anatomical Collection Method Collection Time Receive d Time (Source) Location / / Volume Laterality Blood 07/08/2021 7:28 AM 2 7:35 ALMOND PASTE MIXER AM ALMOND PASTE MIXER Narrative [facility] - 07/08/2021 7:35 AM ALMOND PASTE MIXER Ordered by ~[id number] Provider Unknown LABORATORY Performing Organization Address City/[facility]/ZIP Code Phon e Number [facility] [place] [address] EXTRA TUBE - SST (07/08/2021 7:28 AM ALMOND PASTE MIXER) athologist Signature SST TUBE Stored [facility] Comment: SST tubes (Serum Separator) are stored in the lab for 3 days from the collection date. Specimen Anatomical Collection Method Collection Time Receive d Time (Source) Location / / Volume Laterality Blood 07/08/2021 7:28 AM 2 7:35 ALMOND PASTE MIXER AM ALMOND PASTE MIXER Narrative [facility] - 07/08/2021 7:35 AM ALMOND PASTE MIXER Ordered by ~[id number] Provider Unknown LABORATORY Performing Organization Address City/[facility] Phon e Number [facility] [place] [address] TEST URINE (07/08/2021 7:27 AM ALMOND PASTE MIXER) athologist Signature Ur Negative Negative [facility] UPT performed [facility] at Comment: Test performed by: [facility] ED Clinical Laboratory R1.[address] [place] [id number] Specimen Anatomical Collection Method Collection Time Receive d Time (Source) Location / / Volume Laterality Urine 07/08/2021 7:27 AM 2 ALMOND PASTE MIXER 10:53 AM ALMOND PASTE MIXER Daniel Doe MD LABORATORY Performing Organization Address City/[facility]/ZIP [facility] Phon e Number [facility] [place] [address] (ABNORMAL) URINALYSIS,TOTAL (07/08/2021 7:27 AM ALMOND PASTE MIXER) [facility] gist Method Time Signature Color YELLOW YELLOW [facility] Appearance CLEAR CLEAR [facility] Urine Glucose NEGATIVE NEGATIVE [facility] mg/dL Bili UA TRACE (A) NEGATIVE [facility] Ketones NEGATIVE NEGATIVE [facility] mg/dL Specific Freedom 1.024 1.003 - [facility] 1.030 Blood Ur NEGATIVE Neg-Trace [facility] PH Urine 6.5 5.0 - 7.0 [facility] Protein Ur TRACE Neg-Trace [facility] mg/dL Urobilinogen NORMAL NORMAL EU/dL [facility] Nitrite Ur NEGATIVE NEGATIVE [facility] Leuk Est NEGATIVE Neg-Trace [facility] WBC Ur 0-5 0 - 5 perHPF [facility] RBC Ur 0-3 0 - 3 perHPF [facility] SQ EPITH 0-5 0 - 5 perHPF [facility] Mucus 1+ perLPF [facility] Urinalysis [facility] Performed at: Specimen Anatomical Collection Method Collection Time Receive d Time (Source) Location / / Volume Laterality Urine 07/08/2021 7:27 AM 2 8:09 ALMOND PASTE MIXER AM ALMOND PASTE MIXER Karina Israel MD LABORATORY Performing Organization Address City/[facility] Phon e Number [facility] [place] [address] (ABNORMAL) PROTHROMBIN (PT) & INR (07/08/2021 7:27 AM ALMOND PASTE MIXER) athologist Signature PT 39.2 (H) 9.0 - 12.5 [facility] sec INR 3.3 (H) 0.8 - 1.1 [facility] Specimen Anatomical Collection Method Collection Time Receive d Time (Source) Location / / Volume Laterality Blood 07/08/2021 7:27 AM 2 7:47 ALMOND PASTE MIXER AM ALMOND PASTE MIXER Karina Israel MD LABORATORY Performing Organization Address City/[facility]/ZIP Code Phon e Number [facility] [place] [address] (ABNORMAL) AMMONIA (07/08/2021 7:27 AM ALMOND PASTE MIXER) P athologist Signature Ammonia 110 (H) 11 - 51 [facility] mcmol/L Specimen Anatomical Collection Method Collection Time Receive d Time (Source) Location / / Volume Laterality Blood 07/08/2021 7:27 AM 2 7:53 ALMOND PASTE MIXER AM ALMOND PASTE MIXER Narrative [facility] - 07/08/2021 8:18 AM ALMOND PASTE MIXER Send specimen on ice! Karina Israel MD LABORATORY Performing Organization Address City/State/ZIP Code [place] [address] LIPASE (07/08/2021 7:27 AM ALMOND PASTE MIXER) P athologist Signature Lipase 14 13 - 60 IU/L [facility] Specimen Anatomical Collection Method Collection Time Receive d Time (Source) Location / / Volume Laterality Blood 07/08/2021 7:27 AM 7:47 ALMOND PASTE MIXER AM ALMOND PASTE MIXER Karina Israel MD LABORATORY Performing Organization Address City/State/ZIP Code [place] [address] (ABNORMAL) PANEL HEPATIC FUNCTION (07/08/2021 7:27 AM ALMOND PASTE MIXER) P athologist Signature Total Protein 5.3 (L) 6.4 - 8.3 [facility] g/dL Albumin 3.0 (L) 3.8 - 5.1 [facility] g/dL Bili Total 7.1 (H) 0.1 - 1.2 [facility] mg/dL Bili Direct 2.8 (H) 0.0 - 0.3 [facility] mg/dL Alk Phos 150 (H) 35 - 104 [facility] IU/L ALT (SGPT) 18 <=33 IU/L [facility] AST(SGOT) 47 (H) 5 - 40 [facility] IU/L Specimen Anatomical Collection Method Collection Time Receive d Time (Source) Location / / Volume Laterality Blood 07/08/2021 7:27 AM 7:47 ALMOND PASTE MIXER AM ALMOND PASTE MIXER Karina Israel MD LABORATORY Performing Organization Address City/State/ZIP Code [place] [address] (ABNORMAL) ED CHEMISTRY LABS(NA,K,CL,CO2,GLU,CREAT,CA-IONIZED,ANION GAP) (07/08/2021 7:27 AM ALMOND PASTE MIXER) Analysis Performed At Patho logist Time Signature Sodium 140 135 - 148 [facility] mEq/L Chloride 111 (H) 92 - 108 [facility] mEq/L AnGap 7 (L) 8 - 16 [facility] mEq/L Glucose 83 70 - 100 [facility] mg/dL ICA, Actual 4.34 (L) 4.40 - [facility] 5.20 mg/dL ICA, pH 4.51 4.40 - [facility] Corrected 5.20 mg/dL Creatinine 0.67 0.50 - [facility] 1.00 mg/dL BICARB 22 22 - 26 [facility] mEq/L eGFR, High >120 >=60 [facility] ml/min/1.7 3m2 Comment: Calculated using CKD-EPI equati on eGFR, Low 118 >=60 ml/min/1.73m2 [facility] Comment: Calculated using CKD-EPI equati on Potassium 4.0 3.5 - 5.3 mEq/L [facility] Specimen Anatomical Collection Method Collection Time Receive d Time (Source) Location / / Volume Laterality Blood 07/08/2021 7:27 AM 7:36 ALMOND PASTE MIXER AM ALMOND PASTE MIXER Karina Israel MD LABORATORY Performing Organization Address City/State/ZIP Code Phon e Number [facility] [place] [address] documented in this encounter Visit Diagnoses Diagnosis Ascites due to alcoholic hepatitis - [facility] documented in this encounter Administered Medications Inactive Administered Medications - up to 3 most recent administrations Medication Order MAR Action Action Date Dose Rate Site cefTRIAXone (ROCEPHIN) 1 g in New Bag 07/08/2021 1:32 PM ALMOND PASTE MIXER 1 g 200 mL/hr NaCl 0.9% 100 mL IVPB 1 g, Indication (Select One): Infection - Suspected, SITE (Select all that apply): GI/Intra-abdominal, Cultures Ordered? No, Intravenous, ONE TIME, 1 dose, On Wed07/08/21 at 1305 HYDROmorphone PF (DILAUDID) 1 mg/mL injection Given 4:43 PM ALMOND PASTE MIXER 0.5 mg 0.5 mg 0.5 mg, IV Push, ONE TIME, 1 dose, On Wed07/08/21 at 1640 lactulose (KRISTALOSE) package 20 g Given 07/08/2021 3:33 PM ALMOND PASTE MIXER 20 g 20 g, Oral, TID, First dose on Wed07/08/21 at 1450, Until Discontinued oxyCODONE (ROXICODONE) tablet 5 mg Given 07/08/2021 10:39 AM ALMOND PASTE MIXER 5 mg 5 mg, Oral, ONE TIME, 1 dose, On Wed07/08/21 at 1030 documented in this encounter Active and Recently Administered Medications Times are shown in ALMOND PASTE MIXER. Scheduled Medication Order 07/06/2021 07/07/2021 07/08/2021 cefTRIAXone [...]
--- OUTSIDE RECORDS SUMMARY | 2022-02-10 09:45 | XMS_ITS | Encounter Summary ---
:1990 Author Organization [address] [address] Phone Care Team Providers Name Role Phone Unavailable Primary Care Provider Unavailable Encounter Details Date Type Department Care Team Description 07/15/2021 Nurse Triage [facility] Contact Center Cary Segura, RN [facility] [address] [place] [address] [place] [address] Social History Tobacco Use Types Packs/Day Years Used Date Smoking Tobacco: Never Assessed Sex Assigned at Date Recorded Not on file COVID-19 Exposure Response Date Recorded In the last 10 days, have you been in contact with No / Unsu re 07/08/2021 9:38 AM NAIL TECH someone who was confirmed or suspected to have Coronavirus/COVID-19? documented as of this encounter Miscellaneous Notes Telephone Encounter - Cary Segura RN - 07/15/2021 9:06 AM CDT D: Telephone call received from patient questioning why she was not give blood when she was transferred to [facility] from [facility]. A: Spoke with [...]
--- OUTSIDE RECORDS SUMMARY | 2022-02-10 09:45 | XMS_ITS | Clinical Summary ---
:1990 Author Organization [facility] Address [address] [place] [address] Care Team Providers Name Role Phone Clinic, [facility] Primary Care Provider [facility], [facility] Unavailable [phone] Allergies Active Allergy Reactions Severity Noted Date [...] on patient's age to complete this to pic Insurance Payer Benefit Plan / Subscriber ID Effective Dates Phone Addre ss Type Group BLUE CROSS BCBS [facility] [id number] 2018-Present [phone] [address] [address] [place] [address] Catia Carias Personal/Family Self 1990 A [address] (Home) [address] [place] [address] Advance Directives For more information, please contact: [phone] Latest Code Status on File Code Status Date Activated Date Inactivated Comments Full Code 09/30/2018 4:42 AM 10/02/2018 6:07 PM How was code status determined? Patient Care Teams Transmission Superintendent Relationship Specialty Start Date End Date [facility] PCP - General 09/30/18 [place] [address] [place] [phone] [facility] PCP - Primary Care Clinic 9 [place] [address] [place] [phone]
--- OUTSIDE RECORDS SUMMARY | 2022-02-10 09:45 | XMS_ITS | Encounter Summary ---
:1990 Author Organization [facility] Address [address] [place] [address] Care Team Providers Name Role Phone [facility] Primary Care Provider [phone] [facility] Unavailable [phone] Encounter Details Date Type Department Care Team [...] on filedocumented in this encounter Care Teams Nursing Attendant Relationship Specialty Start Date End Date [facility] PCP - General 09/30/18 [place] [address] [place] [address] [facility] PCP - Primary Care Clinic 9 [place] [address] [place] [phone] documented as of this encounter
--- OUTSIDE RECORDS SUMMARY | 2022-02-10 09:45 | XMS_ITS | Encounter Summary ---
:1990 Author Care Team Providers Name Role Phone Ervin Schroeder MD Primary Care Provider [phone] Sandoval Byrnes [facility] OTHER [phone] Parris Knight (Mother) Patient Designee [phone] Jairo Rodriguez CABLE FORMER Nurse Practitioner [phone] Matthew Rollins MD [facility] [phone] [facility] Care Team Palliative Care [phone] Taylor Paul RN Palliative Care [phone] Zenobia Kirby [facility] Silk Screen Frame Assembler [phone] Reason for Visit None recorded. Assessment and Plan Assessment Note Patient answered the phone, states that she is in a car heading to [place] to the transplant clinic. She would like to reschedule appointment. Ok to call and reschedule appointment. Message sent to [facility] No services performed. Discussion Note: None recorded.Patient [...] Inhale 1 each as needed. Med Name: [address] Cannabis Flower, smoking once weekly as needed [...] rhinitis Information) Functional Status Unknown. Past Encounters 02/05/2022 Jairo Rodriguez, CARBON SETTER: [address], [place] [address], Ph. History of Present Illness None recorded. Review of Systems None recorded. Physical Exam None recorded.
--- OUTSIDE RECORDS SUMMARY | 2022-02-10 09:45 | XMS_ITS | Clinical Summary ---
:1990 Author Organization [employer] Address [address] [place], [place] [address], [place] [address] Phone Care Team Providers Name Role Phone Unavailable Primary Care Provider Unavailable Source Comments [employer] is fully rolled out on [employer]. Last update 10/05/08.[employer] Allergies Active Allergy Reactions Severity Noted Date [...] Comments Blood Pressure 114/67 07/08/2021 4:03 PM TRANSMISSION REBUILDER Pulse 82 07/08/2021 4:03 PM TRANSMISSION REBUILDER Temperature 36.9 ??C (98.5 ??F) 07/08/2021 6:31 AM TRANSMISSION REBUILDER Respiratory Rate 16 07/08/2021 4:03 PM TRANSMISSION REBUILDER Oxygen Saturation 98% 07/08/2021 4:03 PM TRANSMISSION REBUILDER Inhaled Oxygen Concentration - - Weight - [...] Type / Group [employer] BLUE [id number] 2018-Sung [address] [address] [place] [address] (Home) [address] [place] [address]
--- OUTSIDE RECORDS SUMMARY | 2022-02-10 09:45 | XMS_ITS ---
:1990 Author Care Team Providers Name Role Phone STEPHANIE RODRIGUEZ AMILCAR Nurse Practitioner [phone] Parris Knight (mother) Patient Designee [phone] HEYDI BHAGAT MD Transplant Brass Molder Helper [phone] [facility] TEAM Palliative Care [phone] TAYLOR PAUL RN Palliative Care [phone] DOMINICK TODD MD Primary Care Provider [phone] CORNELL ARORA [facility] Director Clinical Pharmacology [phone] THOMAS JERNIGAN [facility] OTHER [phone] Allergies Code Code System Name Reaction Severity Status Onset RxNorm Azithromycin ? ? Active ? Medications Name Status Start Date Stop Date ? ? acetaminophen 500 mg tablet Active ? Not available TAKE 1 TABLET BY MOUTH EVERY 6 HOURS NEEDED FOR MILD PAIN OR SCORE 1-3 OF 10 OR MODERATE PAIN OR SCORE 4-6 OF 10 b-1 100 mg tabs Active ? Not available celecoxib 200 mg capsule Completed ? 022 ciprofloxacin 500 mg tablet Active ? Not available cyclobenzaprine 5 mg tablet Active ? Not available diazepam 5 mg tablet Completed ? 10/14/2021 TAKE 1 TABLET BY MOUTH AT BEDTIME diclofenac 1 % topical gel Active ? Not a vailable ergocalciferol (vitamin D2) 1,250 mcg (50,000 unit) Active ? Not available capsule folic acid 1 mg tablet Active ? Not avail able TAKE 1 TABLET BY MOUTH DAILY furosemide 20 mg tablet Active ? Not avai lable TAKE 2 TABLETS BY MOUTH DAILY furosemide 40 mg tablet Active ? Not avai lable TAKE 1 TABLET BY MOUTH EVERY DAY [...] availa ble TAKE 1 TABLET BY MOUTH EVERY DAILY N EEDED FOR ANXIETY. TAKE 1 HOUR BEFORE EACH PARACENTESIS magnesium 400mg capsules Completed ? 022 TAKE [...] mg disintegrating tablet Active ? Not available DISSOLVE 1 TABLET ON THE TONGUE THREE T IMES DAILY NEEDED FOR NAUSEA OR VOMITING oxycodone 5 mg tablet Active ? Not [...] EVERY DAY prochlorperazine maleate 10 mg tablet Active ? Not available promethazine 25 mg tablet Completed ? 2021 ropinirole 1 mg tablet Completed ? TAKE 1 TABLET BY MOUTH AT BEDTIME ropinirole 2 mg tablet Active ? Not avail able sodium bicarbonate 650 mg tablet Completed ? 10/14/2021 spironolactone 100 mg tablet Active ? Not available TAKE 1 TABLET BY MOUTH EVERY MORNING spironolactone 25 mg tablet Completed ? 10/01 TAKE 1 TABLET BY MOUTH DAILY spironolactone 50 mg tablet Active ? Not available sulfamethoxazole 800 mg-trimethoprim 160 mg tablet Active [...] Results Lab Results None recorded. Past Encounters 02/05/2022 Stephanie Rodriguez COMPANY MANAGER: [address] [place] [address], Ph. 12/01/2021 Stephanie Rodriguez CNP: [address] [place] [address], Ph. 11/27/2021 Taylor Paul RN: [address] [place] [phone], Ph. 11/05/2021 Stephanie Rodriguez, COMPANY MANAGER: [address] [place] [phone], Ph. [phone] 10/14/2021 Evi Biggs LPN: [address] [place] [address] [place] [address], Ph. Social History None recorded. Vaccine List None recorded. Plan of Care Patient Instructions Patient instructed to call with [email or web address] or concerns. Patient instructed to call with [email or web address] or concerns. Reminders Provider Appointments None recorded. ? ? Lab None recorded. ? ? Referral None recorded. ? ? Procedures None recorded. ? ? Surgeries None recorded. ? ? Imaging None recorded. ? ? Vitals Height Weight BMI Blood Pressure 5 ft 2 in 133 lbs 24.3 kg/m2 98/58 mm[Hg]
[2022-02-10 09:52] VITALS: BP 123/60; PULSE 106; RESP 30; TEMP 36.4; O2SAT 96
[2022-02-10] MEDS: CYCLOBENZAPRINE HCL 10 MG TABLET 5 MG PO (10:05)
--- NOTE | 2022-02-10 11:02 | CRLHL7_ITS ---
For Patients: As a result of the Century Cures Act, medical imaging exams and procedure reports are released immediately into your electronic medical record. You may view this report before your referring provider. If you have questions, please contact your health care provider. Indication: Bilateral leg pain, bowel/bladder dysfunction Technique: Multiplanar, multisequence, MRI of the lumbar spine, obtained without contrast. Comparison: Same-day CT lumbar spine Findings: The lumbar lordosis is preserved. No significant spondylolisthesis. Multilevel compression deformities involving the T12 inferior endplate, L1 superior and inferior endplates, L2 inferior endplate, L3 superior and inferior endplate, L4 and L5 superior endplates. Mild-moderate bone edema associated with the L3 inferior endplate, and mild bony edema T12. Minimal posterior buckling of the L1 posterosuperior corner. No aggressive osseous lesion identified. Intrinsic marrow signal is otherwise unremarkable. The conus medullaris terminates at approximately L1-2. No suspicious findings in the prevertebral and paraspinal soft tissues. No obvious epidural hematoma. Included SI joints are unremarkable. Mild degenerative changes, without evidence of significant foraminal or spinal canal stenosis. Impression: 1. Multilevel compression deformities spanning T12-L5. [id number] bony edema at the L3 inferior endplate, and minimal bony edema at the T12 inferior endplate, suggestive of subacute age. Remaining compression deformities appear chronic. 2. Minimal posterior cortical buckling of the L1 posterior superior corner. 3. No epidural hematoma, or evidence of significant foraminal or spinal canal stenosis. Dictated by Loreta Olivera MD @ 02/10/2022 2:07:58 PM (Electronically Signed)
[2022-02-10] MEDS: OXYCODONE 5 MG TABLET 2.5 MG PO (11:32)
[2022-02-10 11:33] VITALS: BP 127/69; RESP 26; O2SAT 95
[2022-02-10 11:33] LABS: Basophils Absolute Auto 0.02 K/uL (0.00-0.30); Basophils Percent Auto 0.3 % (0.0-3.0); Eosinophils Percent Auto 1.7 % (0.0-7.0); Hematocrit 24.1 % (33.0-51.0); Hemoglobin* 8.3 gm/dL (12.0-16.0); Immature Granulocytes Abs Auto 0.02 K/uL (0.00-0.30); Lymphocytes Percent Auto 15.2 % (20-44); Mean Corpuscular HGB Conc 34 gm/dL (32-36); Mean Corpuscular Hemoglobin 35 pg (26-34); Mean Corpuscular Volume 101 fL (80-100); Monocytes Percent Auto 7.7 % (0.0-11.0); Neutrophils Percent Auto 74.8 % (42.0-72.0); Platelet Count* 55 K/uL (140-440); RDW Coefficient of Variation % 22.2 % (11.5-15.5); Red Blood Count 2.39 m/uL (4.00-5.20); White Blood Count* 5.97 K/uL (4.50-11.00)
[2022-02-10 11:42] LABS: Albumin* 3.5 g/dL (3.3-5.0); Chloride* 102 mmol/L (96-114)
[2022-02-10 11:43] LABS: Potassium* 3.7 mmol/L (3.6-5.1); Sodium* 135 mmol/L (135-149)
[2022-02-10 11:45] LABS: Alkaline Phosphatase* 331 U/L (40-150); Aspartate Amino Transferase* 68 U/L (12-35); Bilirubin Total* 10.9 mg/dL (0.1-1.5); Blood Urea Nitrogen* 10 mg/dL (5-24); Carbon Dioxide* 24 mmol/L (20-32); Creatinine* 0.5 mg/dL (0.5-1.5); Est. Creatinine Clearance* 128.94; Estimated Glomerular Filt Rate 129 ml/min; Total Protein* 5.6 g/dL (6.0-8.3)
[2022-02-10 11:46] LABS: Alanine Aminotransferase* 22 U/L (4-35); Calcium* 8.9 mg/dL (8.4-10.6); Glucose* 109 mg/dL (60-115); Slide Review Reflex No
[2022-02-10 11:48] LABS: INR 2.83 (0.91-1.10); Prothrombin Time 30.1 Seconds
[2022-02-10 11:49] LABS: Partial Thromboplastin Time* 52 Seconds (23-33)
[2022-02-10 12:18] LABS: SARS PCR* Negative SARS-CoV-2 (Negative)
[2022-02-10 12:55] VITALS: BP 134/81; PULSE 110; O2SAT 94
[2022-02-10] MEDS: LACTULOSE 20 GM/30 ML PO (13:18)
--- NOTE | 2022-02-10 13:23 | ED.NURSE ---
Pt reported that she had not taken her lactulose today. Requested we administer lactulose if possible. MD notified, MD ordered lactulose. Med given to pt.
[2022-02-10 15:07] VITALS: BP 124/73; PULSE 101; O2SAT 94
== END 2022-02-10 16:30 | disposition home or self-care (01) ==
PROVIDERS: Emergency Provider Family Medicine; PCP Internal Medicine
DX: S32.030A Wedge compression fracture of third lumbar vertebra, initial encounter for closed fracture (principal); S22.080A Wedge compression fracture of T11-T12 vertebra, initial encounter for closed fracture
CPT/HCPCS: 36415; 72131; 72148; 80053; 82140; 85025; 85610; 85730; 87635; 99284; 99285; A9270; J2704

== ENCOUNTER 2022-02-12 19:19 | Emergency (ER) | payer BC, SELFPAY ==
[2022-02-12 19:35] VITALS: BP 110/78; PULSE 95; RESP 18; TEMP 36.4; O2SAT 99; BMI 23.8
--- OUTSIDE RECORDS SUMMARY | 2022-02-12 20:19 | XMS_ITS | Clinical Summary ---
:1990 Author Organization [facility] Address [address] [place] [address] Care Team Providers Name Role Phone Ana Red P.A.-C. Primary Care Provider [phone] Source Comments Patient records contain information from all sites at [facility]. For routine questions regarding patient records, call [phone] during business hours, M-F 8:00 AM - 5:00 PM Central Time. Record requests for emergency care only can be directed to [phone] at any time.[facility] Allergies Active Allergy Reactions Severity Noted [...] Take 1 tablet (500 60 tablet 2 2 Active 500 mg tablet mg total) by mouth every morning before breakfast. Take this medication 2 hours before or after you take your vitamins, in particular the magnesium and the zinc. lactulose (CHRONULAC) Take 15 mL (10 g 5400 mL 3 01/29/2022 Active 20 gram/30 mL solution total) by mouth 4 3 (four) times a day. folic acid 1 mg tablet TAKE 1 TABLET BY 90 tablet 3 01/30/2022 Active MOUTH DAILY cyclobenzaprine Take 1 tablet (5 5 tablet 0 01/30/2022 Active (FLEXERIL) 5 mg tablet mg total) by mouth daily as needed for muscle spasms. Additional Information Patient taking differently: 5 mg oral 3 times daily PRN, muscle spasms, Other, Reported on 02/11/2022 furosemide (LASIX) 20 Take 2 tablets 180 3 02/02/2022 Active mg tabletIndications: (40 mg total) by tablet Ascites Chronic, mouth daily. Thrombocytopenia Return to full (HCC), Cirrhosis 40mg dose on (HCC), Friday 02/02. Hypertension Portal (HCC), Abnormal Liver Function Test spironolactone Take 2 tablets 60 tablet 2 02/02/2022 Active (ALDACTONE) 50 mg (100 mg total) tablet by mouth daily. Return to full 100mg dose on Friday 02/02. oxyCODONE Take 0.5 tablets 10 tablet 0 02/10/2022 Ac tive (ROXICODONE) 5 mg (2.5 mg total) immediate release by mouth every 8 tabletIndications: (eight) hours as Acute Pain Exception needed for severe pain or score 7-10 of 10 Indication: Acute Pain Exception. prochlorperazine Take 10 mg by 0 Active (COMPAZINE) 10 mg mouth. tablet acetaminophen acetaminophen 500 mg tablet 0 Active (TYLENOL) 500 mg TAKE 1 TABLET BY MOUTH EVER Y 6 HOURS NEEDED FOR MILD PAIN OR SCORE 1-3 OF 10 OR MODERATE PAIN OR SCORE 4-6 OF 10 tablet ondansetron ODT Dissolve 1 0 04/23/2021 01/14/2022 D iscontinued (ZOFRAN-ODT) 8 mg tablet in the (Stop Taking disintegrating tablet mouth 3 (three) at Discharge) times a day as needed for nausea or vomiting. ergocalciferol Take 50,000 0 04/01/2021 01/14/2022 D iscontinued (DRISDOL) 50,000 Unit Units by mouth (Stop Taking capsule once a week. at [facility]) Mondays folic acid 1 mg Take 1 mg by 0 01/30/2022 Discontinued tablet mouth daily. vitamin A 3,000 mcg Take 1 capsule 50 0 10/08/202101/01 Discontinued (10,000 Unit) (3,000 mcg capsule (Reor ijeoma) capsuleIndications: total) by mouth Cirrhosis Alcoholic 3 (three) times (HCC), Deficiency a week for 50 Vitamin A doses. spironolactone Take 2 tablets 180 3 12/10/2021 2 Discontinued (ALDACTONE) 50 mg (100 mg total) tablet (Stop Taking tabletIndications: by mouth daily. at Discharge) Cirrhosis Alcoholic (HCC), Hypertension Portal (HCC), Thrombocytopenia (HCC), Abnormal Liver Function Test, Ascites Chronic furosemide (LASIX) 20 Take 2 tablets 180 3 12/10/2021 Discontinued mg tabletIndications: (40 mg total) by tablet (Reorder) Cirrhosis Alcoholic mouth daily. (HCC), Hypertension Portal (HCC), Thrombocytopenia (HCC), Abnormal Liver Function Test, Ascites Chronic lactulose (CHRONULAC) Take 15 mL (10 g 1350 mL 11 12/10/2021 01/27/2022 Discontinued 10 gram/15 mL total) by mouth (Stop Taking solutionIndications: 3 (three) times at Discharge) Cirrhosis Alcoholic a day. Titrate (HCC), Hypertension to 3 soft bowel Portal (HCC), movements daily Thrombocytopenia (HCC), Abnormal Liver Function Test, Hepatic Encephalopathy Without Coma (HCC) sulfamethoxazole-trim Take 1 tablet by 90 tablet 3 12/10/2021 01/14/2022 Discontinued ethoprim (BACTRIM DS) mouth daily. (Stop Taking 800-160 mg per Take 1 tablet a t Discharge) tabletIndications: daily for Cirrhosis Alcoholic (HCC), Hypertension Portal (HCC), Thrombocytopenia (HCC), Abnormal Liver Function Test, Ascites Chronic LORazepam (ATIVAN) 1 Take 1 tablet (1 1 tablet 0 12/18/2021 0 01/14/2022 Discontinued mg tabletIndications: mg total) by (Stop Taking Mood Disorder (HCC), mouth once for 1 at Discharge) Anxiety Disorder dose. Take 30 Unspecified minutes before your scheduled paracentesis traZODone (DESYREL) Take 1 tablet 30 tablet 0 01/07/202201/14 Discontinued 100 mg tablet (100 mg total) ( Stop Taking by mouth at at Disch arge) bedtime as needed for sleep. cyclobenzaprine Take 1 tablet (5 15 tablet 0 01/07/20222021 Discontinued (FLEXERIL) 5 mg mg total) by ( Reorder) tablet mouth daily as needed for muscle spasms. acetaminophen Take 1 tablet 60 tablet 3 01/14/2022 01/27/2022 Discontinued (TYLENOL) 500 mg (500 mg total) (Stop Taking tablet by mouth every 6 at Discharge) (six) hours as needed for mild pain or score 1-3 of 10 or moderate pain or score 4-6 of 10. ciprofloxacin (CIPRO) Take 1 tablet 60 tablet 2 01/14/2022 Discontinued 500 mg tablet (500 mg total) ( Reorder) by mouth every morning before breakfast. prochlorperazine Take 1 tablet 20 tablet 0 01/14/2022 01/21/20 22 Discontinued (COMPAZINE) 10 mg (10 mg total) by (Reorder) tablet mouth 3 (three) times a day as needed for nausea. spironolactone Take 1 tablet 60 tablet 2 01/15/2022 01/20/2022 Discontinued (ALDACTONE) 50 mg (50 mg total) by (Reorder) tablet mouth daily. lidocaine (LIDODERM) Place 1 patch on 90 patch 3 01/19/2022 0 01/19/2022 Discontinued 5 % the skin daily. (Err or) Apply to painful area 12 hours per day, remove for 12 hours. lidocaine (LIDODERM) Place 1 patch on 10 patch 0 01/19/2022 0 01/27/2022 Discontinued 5 % the skin daily. (Sto p Taking Apply to painful at Discharge) area 12 hours per day, remove for 12 hours. cyclobenzaprine Take 1 tablet (5 15 tablet 0 01/20/20222021 Discontinued (FLEXERIL) 5 mg mg total) by ( Reorder) tablet mouth daily as needed for muscle spasms. spironolactone Take 2 tablets 60 tablet 2 01/20/2022 2 Discontinued (ALDACTONE) 50 mg (100 mg total) (Reorder) tablet by mouth daily. prochlorperazine Take 1 tablet 20 tablet 0 01/20/2022 01/30/20 22 Discontinued (COMPAZINE) 10 mg (10 mg total) by (Stop Taking tablet mouth 3 (three) at D ischarge) times a day as needed for nausea. lactulose (CHRONULAC) Take 30 mL (20 g 90417 mL 3 01/27/2022 01/29/2022 Discontinued 20 gram/30 mL total) by mouth (Reorder) solution 4 (four) times a day. spironolactone Take 1 tablet 60 tablet 2 01/28/2022 01/29/2022 Discontinued (ALDACTONE) 50 mg (50 mg total) by (Reorder) tablet mouth daily. furosemide (LASIX) 20 Take 1 tablet 90 tablet 3 01/28/2022 Discontinued mg tabletIndications: (20 mg total) by (Reorder) Thrombocytopenia mouth daily. (HCC), Ascites Chronic, Cirrhosis Alcoholic (HCC), Hypertension Portal (HCC), Abnormal Liver Function Test lactulose (CHRONULAC) Take 30 mL (20 g 8100 mL 3 01/29/2022 01/29/2022 Discontinued 20 gram/30 mL total) by mouth (Reorder) solution 3 (three) times a day. furosemide (LASIX) 20 Take 1 tablet 90 tablet 3 01/29/202207/2021 Discontinued mg tabletIndications: (20 mg total) by (Reorder) Thrombocytopenia mouth daily. (HCC), Ascites Return to full Chronic, Cirrhosis 40mg dose on Alcoholic (HCC), Friday 02/02. Hypertension Portal (HCC), Abnormal Liver Function Test spironolactone Take 1 tablet 60 tablet 2 01/29/2022 02/02/2022 Discontinued (ALDACTONE) 50 mg (50 mg total) by (Reorder) tablet mouth daily. Return to full 100mg dose on Friday 02/02. cyclobenzaprine Take 1 tablet (5 15 tablet 0 01/30/20222021 Discontinued (FLEXERIL) 5 mg mg total) by ( Reorder) tablet mouth daily as needed for muscle spasms. cyclobenzaprine Take 1 tablet (5 30 tablet 0 02/02/20222021 Discontinued (FLEXERIL) 5 mg mg total) by ( Therapy tablet mouth at bedtime com pleted) as needed for muscle spasms. Active Problems Problem Noted Date Pain Low Back Vertebrogenic 02/01/2022 Attention Deficit Hyperactive Disorder 02/01/2022 Chronic Kidney Disease (CKD), Stage 3b Glomerular Filt ration Rate (GFR) 30 02/01/2022 To 44 Insomnia 02/01/2022 Restless Leg Syndrome 02/01/2022 Deficiency Vitamin D 02/01/2022 Esophageal Varices Without Bleeding 01/28/2022 Cirrhosis Alcoholic 12/10/2021 Overview: Added automatically from request for dolly daley [id number] Smoking Tobacco Use Personal History 10/10/2021 Overview: Quit smoking spring 2021. 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 Zenobia Hollingsworth M.A., L.A.D.C. 02/11/2022 Office Visit [facility] Internal [facility], Fracture T2 Wedge Compression Sequela (Primary Dx); Solitario Perez, Cirrhosis Alcoh olic (HCC); P.A.-C. Hypertension Po rtal (HCC); Thrombocytopeni a (HCC); Abnormal Liver Function Test; Hepatic Encepha lopathy Without Coma (HCC) 02/11/2022 Refill [facility] Internal Carlos, Med Refil l Farida Keller-C. 02/10/2022 Virtual Visit Transplant Matthew Jerome, Alcoholic Ci rrhosis Lilian Santillan Of Liver With Ascites Rain Reyes (HCC) [K70.31 M, R.N. (ICD-10-CM)] (P rimary Dx) 02/10/2022 Orders Only [facility] 02/10/2022 Clinical Transplant Matthew Jerome, Phone Contact Communication Lilian Santillan 02/10/2022 Clinical [facility] Internal [place], Post Hosp ital Communication Solitario Govea R.N. Follow-up 02/10/2022 Documentation Gastroenterology and Shayne, Hepatology Max Lopez. 02/09/2022 Clinical [facility] Internal [facility] Medicine Frances PerezA.-C. 02/09/2022 Clinical Anesthesiology Alyssa Arana schedule d for Communication S, R.N. 02/1002/05/2022 Hospital Encounter Radiology Matthew Jerome Y, Chronic Pain Syndrome (Primary Dx); Lilian Santillan Ascites Chron ic; Hypertension Po rtal (HCC); Hepatic Failure Unspecified Without Coma (HCC); Alcoholic Cirrh osis Of Liver With Ascites (HCC) 02/04/2022 Orders Only Acute Care Sara Gracia M.D. 02/04/2022 Clinical Gastroenterology and Matthew Jerome Y, Phone Contact (RN and Communication Hepatology Lilian Santillan MD follow up ) 02/04/2022 Clinical [facility] Internal [facility], Post Hosp ital Communication Medicine Myrtle Govea Follow-up (NC CE 78) 02/03/2022 Clinical Gastroenterology and Matthew Jerome Y, Communication Hepatology Lilian Santillan 02/02/2022 Orders Only [facility] Ana, Shanita.A.-C. 02/02/2022 [facility] Medicine Ana P.A.-C. 02/01/2022 Emergency AshlynPaty burciaga Pain Flank (Pr imary Dx); - L, P.A.-C. Ascites Chronic; 02/03/2022 Ervin Mazariegos Thrombocytopen ia (HCC); Lilian Johnson Cirrhosis Alcoholic (HCC); Vj Rodrigez, Hypertension P ortal (HCC); M.Karan., Ch.B. Abnormal Liver Function Test 01/30/2022 Clinical Acute Care Ashley Gracia M.D. 01/30/2022 Orders Only Acute Care Sara Gracia M.D. 01/30/2022 Clinical Family Medicine Nighat Dickson Post [facility] meagan Ashley J, R.NSuma Follow-up 01/30/2022 Orders Only [facility] Internal Harinder Mccormick M.D. 01/30/2022 Clinical [facility] Internal [place], Post Hosp ital Communication Medicine Parris Schaefer, Follow-up R.N. 01/30/2022 [facility] CarlosAshley Medicine Ana P.A.-C. 01/29/[address] [facility], Med Refil l Solitario Perez, P.A.-C. 01/29/2022 Orders Only Pharmacy Genaro Handley 01/29/2022 Clinical Transplant Adry Peterson Phone Contact Communication 01/28/2022 Virtual Visit Transplant Matthew Jerome Y, Canceled (Danie albright: Elizabeth.B.B.SSuma, Callie. Hospitalized / ill) 01/28/2022 Clinical Acute Care Adrianne, Pre-visit Testi ng Ashley Burciaga, Orders M.Jeri 01/27/2022 Orders Only Pharmacy Evi Lanier 01/26/2022 Anesthesia Event Gastroenterology and Gildardo Hickey Hepatology E, INSTALLATION MANAGER, GENERAL MACHINE OPERATOR, DNAP Catia Green, INSTALLATION MANAGER, GENERAL MACHINE OPERATOR, DNAP 01/26/2022 Ancillary Procedure 01/26/2022 Clinical Pharmacy Christopher, Nicole Rx Prior Communication A Authorization (PA DENIED - LIDOCA INE 5% PATCH) 01/26/2022 Orders Only Pharmacy Christopher, Nicole A 01/23/2022 Ancillary Procedure 01/23/2022 Anesthesia Event Gastroenterology and Roseanne, Hepatology Allegra Wilkes, INSTALLATION MANAGER, GENERAL MACHINE OPERATOR 01/22/2022 [facility], Form Revi ew Communication Solitario Perez, ([facility] P.A.-C. med reconciliat ion) 01/20/2022 Hospital Encounter KnightCody Failure Renal Acute (Acute Kidney Injury) (HCC) (Primary Dx); Ester Burciaga M.D. Cirrhosis Alcoholic (HCC); 01/29/2022 Justice, Alcohol Use Uns pecified With Unspecified Alcohol [...] Wit hout Coma (HCC) 01/20/2022 Office Visit [facility] Internal [facility], Pain Low Back Unspecified (Primary Dx); Medicine Ana, Cirrhosis Alcoh olic (HCC); P.A.-C. Ascites; Long QT Syndrom e; Rhinitis Allerg ic; Alcohol Use Uns pecified With Unspecified Alcohol Induced Disorder (HCC) 01/20/2022 Clinical Gastroenterology and Felicita Spicer Communication Hepatology E, L.P.N. 01/20/[address] [facility], Med Refil l Solitario Perez, P.A.-C. 01/20/2022 Orders Only Pharmacy Mestad, Lina C 01/19/[address] [facility], Medicine Ana, P.A.-C. 01/19/2022 Orders Only Transplant Ailts, Garry Engle., R.N., C.C.T.C. 01/19/[address] [facility], Communication Solitario Perez, P.A.-C. 01/17/2022 Clinical Gastroenterology and Ervin Mckeon Communication Hepatdina Quintana, Ph.D. 01/16/2022 Clinical Transplant Fabrizio, Phone Contact; Communication Lilian Rowland, Appointment (LABs) Ph.D. 01/16/2022 Clinical Gastroenterology and Digna Campbell Communication Hepatdina Schaefer M.D. 01/15/2022 Clinical Transplant Quang, Phone Contact Communication Parris 01/15/2022 Clinical [facility] Internal [place], Post Hosp ital Communication Solitario Johnson R.N. Follow-up 01/14/2022 Clinical Transplant Karin, Appointment (Oc tober Communication Adeline Gannon, follow up) MJules, Ph.D. 01/13/2022 Telemedicine Transplant Loukianova, Moderate Or Sev ere Adeline Gannon, Use Disorder Lilian, Ph.D. (Dependence) Alcohol Cathleen, Remission (HCC) Elena Loretta (Primary Dx) 01/13/2022 Telemedicine Transplant Lambadelaida, Cirrhosis Alcoh olic Joel Gannon, (HCC) (Primary Dx) L.Kirit.C.S.W., M.S.W. 01/13/2022 Clinical Gastroenterology and Digna Campbell Hepatology Lilian Schaefer 01/13/2022 Orders Only Social Work Joel Tan, L.I.C.S.W., M.S.W. 01/13/2022 Clinical Gastroenterology and Digna Campbell Hepatology Lilian Schaefer 01/09/2022 Hospital Encounter Jose, Hepatic E ncephalopathy Without Coma (HCC) (Primary Dx); - Migue Llanes Jr., Deficiency Vi tamin A; 01/14/2022 Lilian Cirrhosis Alcoholic (HCC); Reyes, Pain Low Back U nspecified; Reese K, Decline Functio nal Status [R53.81 (ICD-10-CM)] Sree Up M.D. 01/08/2022 Clinical [facility] Internal [facility], Communication Medicine Ana P.A.-C. 01/07/2022 Office Visit [facility] Internal [facility], Hypertens ion Portal (HCC) (Primary Dx); Medicine Ana, Cirrhosis Alcoh olic (HCC); P.A.-C. Ascites; Pancreatitis Ch ronic (HCC); Pain Low Back M echanical 01/07/2022 Patient Self-Triage Symptom Improvement Rn, Provider 01/06/2022 Clinical Gastroenterology and Felicita Spicer Communication Hepatology Patrica, L.PSumaN. 12/27/2021 Patient Self-Triage Symptom Improvement Rn, Provider 12/25/[address] [facility], Communication Medicine Ana P.A.-C. 12/21/2021 Emergency Emergency Medicine Gonzalez, Ascites ( Primary Dx) Ted Johnson M.D., Ph.D. Clifton Liu M.D. 12/19/2021 Emergency Emergency Medicine Gonzalez, Pain Back (Primary - Ted Johnson M.D., Dx) 12/20/2021 Ph.D. Migue Garcia Jr., M.D. 12/19/2021 Nurse Triage [facility] Internal [facility] Back Pain Medicine Ben Johnson R.N. 12/18/2021 Orders Only Gastroenterology and Mochantell, Matthew Y, Mood Disorder (HCC) (Primary Dx); [...] Spicer Communication Hepatology Patrica, L.P.N. 12/11/2021 Clinical [facility] Internal [facility], Disabilit y Parking Communication Medicine Ana, Ashleigh P.A.-C. 12/10/2021 Office Visit Gastroenterology and Luischantell, Matthew Y, Cirrh osis Alcoholic (HCC) (Primary [...] 12/04/2021 Clinical Gastroenterology and Ashley Morelos Hepatdina Scheafer M.D. 12/04/2021 Documentation Gastroenterology and Jethro Hepatdina Schaefer M.D. 12/04/2021 Clinical Gastroenterology and More[place], Communication Hepatology Nabila Schaefer M.D. 12/03/2021 [facility] Internal [facility], BIANKA / Disha eal Letter Communication Medicine Lilian Gee, M.S. 12/03/2021 Orders Only Ana Red P.A.-C. 12/02/2021 Hospital Encounter Laboratory Medicine Matthew Jerome Y, Cirrhosis Alcoholic (HCC); Lilian Santillan Hypertension Portal (HCC); Thrombocytopeni a (HCC); Abnormal Liver Function Test; Change Mental S tatus 12/02/2021 Office Visit [facility] Acute A nd Subacute Hepatic Failure Without Coma (HCC) (Primary Dx); Medicine Sunny hanley D.O. Pancreatitis Chronic (HCC); Intermediate Use O f Opiate Analgesic; Alcohol Use Uns pecified With Unspecified Alcohol Induced Disorder (HCC); Alcoholic Cirrh osis Of Liver Without Ascites (HCC); Ascites Chronic ; Insomnia; High Risk Medic ation 12/02/2021 [facility] Sina, Communication Solitario Gee M.D., M.S. 12/02/2021 Clinical Pharmacy BeAshleyanda R 12/02/2021 [facility] Communication Medicine Sunny hanley D.O. 12/02/2021 Orders Only Ana Red, P.A.-C. 12/02/2021 [facility] Internal [place], Post Hosp ital Communication Medicine Ciara Johnson, RSumaNSuma Follow-up 11/27/2021 [facility] 11/26/2021 Clinical [facility] Internal Shannan Rand Communication Medicine Lilian 11/26/2021 Clinical Gastroenterology and Matthew Jerome, Communication Hepatology Tyrell, Lilian 11/26/2021 [facility] Orders Schroeder, Steatohepat itis Non Alcoholic (Primary Dx); Ervin Schaefer M.D. Unspecified Ci rrhosis Of Liver (HCC) 11/18/2021 Clinical Alina Carranza R, R.N. 11/14/2021 [facility] Orders Schroeder, Abuse Tobac co Smoking (Primary Dx); Ervin Schaefer M.D. Unspecified Ci rrhosis Of Liver (HCC) 11/12/2021 Hospital Encounter Rosaura Sevilla (Primary Dx); Ester Johnson M.D., Change Mental S tatus; 11/26/2021 [facility] Malaise (Concern For Covid-19); Greyson, Cirrhosis Alcoh olic (HCC) Jo Ann Gannon M.D., M.S. Jody Aguilar M.B., B.Chir. 11/12/2021 Clinical Gastroenterology and Mousa, Matthew Y, Covid Positive Communication Hepatology VikBLilian Bedolla from Last 3 Months Immunizations Name Administration [...] you attend christian or Patient refused 2021 jain services? 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 Vital Signs Vital Sign Reading Time Taken Comments Blood Pressure 131/76 02/11/2022 9:25 AM CDT Pulse 116 02/11/2022 9:25 AM CDT Temperature 36.4 ??C (97.6 ??F) 02/11/2022 9:25 AM CDT Respiratory Rate 16 02/03/2022 4:22 PM CDT Oxygen Saturation 94% 02/05/2022 3:55 PM CDT Inhaled Oxygen Concentration - - Weight 61 kg (134 lb 7.7 oz) 02/11/2022 9:25 AM CDT Height 157.5 cm (5' 2.01) 02/11/2022 9:25 AM CDT Body Mass Index 24.59 02/11/2022 9:25 AM CDT Plan of Treatment Upcoming Encounters Date Type Specialty Care Team Description Telemedicine Transplant 2 Appointment Radiology Matthew Jerome 2 YVikBSumaSSuma, Lilian [address] [place] [address] Appointment Gastroenterology and Adrianne, 2 Hepatology Yue Burciaga M.D. [address] [place] [phone] Virtual Visit Transplant Matthew Jerome 2 YTyrell M.D. [address] [place] [phone] Office Visit Gastroenterology and New Jeromear 2 Hepatology Tyrell Rodriguez M.D. [address] [place] [phone] Appointment Radiology LuisMatthew abdul 2 YTyrell M.D. [address] [place] [phone] [facility] Cir[facility] is Alcoholic (HCC) 2 Encounter Hepatology Tyrell Rodriguez M.D. [address] [place] [phone] Anesthesia Event Gastroenterology and Rl, 2 Hepatology Ervin Burgos M.D. [address] [place] [phone] Surgery Gastroenterology and Queenie Matthew ESOPHAG OGASTRODUODENOSCOPY 2 Hepatology Tyrell Rodriguez M.D. 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 Hypertension Portal (HCC) Health Maintenance Due Date [...] 11/25/2021, 11/09/2021, Additional history exists Creatinine Level 02/12/2023 02/12/2022, 02/02/2022, 02/01/2022, Additional history exists Potassium Level 02/12/2023 02/12/2022, 02/02/2022, 02/01/2022, Additional history exists Sodium Level 02/12/2023 02/12/2022, 02/02/2022, 02/01/2022, Additional history exists DTaP,Tdap,and Td Vaccines (7 - Td 03/07/2024 03/07/2014, , or Tdap) 05/26/1995, Additional history exists Hepatitis B Vaccines Completed 12/28/2000, 12/17/1997, 04/30/1997 HIV Screening Completed 01/25/2022, 09/30/2021 Depression Screening (Annual Completed 02/10/2022 PHQ-2) Medical Devices Implanted Type Area Stock Patch Sawyer Device Shelf Model / Identifier Expiration Serial / Date Lot Intrauterine Intrauterine N/A: Device Device Cervix Procedures Procedure Name Priority Date/Time Associated Comments Diagnosis ETHYL GLUCURONIDE SCRN Routine 02/12/2022 Moderate Or Severe Results for W/REFLEX, U 10:29 AM CDT Use Disorder this procedure (Dependence) are in the Alcohol Remission results (HCC) section. CONFIRMED DRUG ABUSE Routine 02/12/2022 Moderate Or Severe R esults for PANEL, U 10:29 AM CDT Use Disorder this procedure (Dependence) are in the Alcohol Remission results (HCC) section. URIC ACID, S/P Routine 02/12/2022 Cirrhosis Results for 10:16 AM CDT Alcoholic (HCC) this procedure Abnormal Liver are in the Function Test results Ascites section. Pretransplant Recipient Evaluation Exam C-REACTIVE PROTEIN Routine 02/12/2022 Cirrhosis Results f or (CRP), S/P 10:16 AM CDT Alcoholic (HCC) this procedure Abnormal Liver are in the Function Test results Ascites section. Pretransplant Recipient Evaluation Exam ALPHA-FETOPROTEIN (AFP) Routine 02/12/2022 Cirrhosis Resu lts for TM, S 10:16 AM CDT Alcoholic (HCC) this procedure Abnormal Liver are in the Function Test results Ascites section. Pretransplant Recipient Evaluation Exam CBC WITH DIFFERENTIAL, B Routine 02/12/2022 Cirrhosis Res ults for 10:16 AM CDT Alcoholic (HCC) this procedure Abnormal Liver are in the Function Test results Ascites section. Pretransplant Recipient Evaluation Exam BILIRUBIN DIRECT, S/P Routine 02/12/2022 Cirrhosis Result s for 10:16 AM CDT Alcoholic (HCC) this procedure Abnormal Liver are in the Function Test results Ascites section. Pretransplant Recipient Evaluation Exam COMPREHENSIVE METABOLIC Routine 02/12/2022 Cirrhosis Resu lts for PANEL, S/P 10:16 AM CDT Alcoholic (HCC) this procedure Abnormal Liver are in the Function Test results Ascites section. Pretransplant Recipient Evaluation Exam PROTHROMBIN TIME (PT), P Routine 02/12/2022 Cirrhosis Res ults for 10:16 AM CDT Alcoholic (HCC) this procedure Thrombocytopenia are in the (HCC) results Hypertension section. Portal (HCC) Deficiency Coagulation Acquired (HCC) Pretransplant Recipient Evaluation Exam OUTSIDE MR NEURO Routine 02/10/2022 Results for 12:20 PM CDT this procedure are in the results section. OUTSIDE CT NEURO Routine 02/10/2022 Results for 9:05 AM CDT this procedure are in the results section. US PARACENTESIS WITH RAD - Routine 02/05/2022 [...] results section. from Last 3 Months Results Ethyl Glucuronide Screen with Reflex, Urine (02/12/2022 10:29 AM CDT) [facility] Method Time Signature Ethyl Negative Cutoff: 02/12/2022 [facility] Glucuronide Scrn 500 ng/mL 2:35 PM CDT w/Reflex, U Comment: ----ADDITIONAL INFORMATION---- This test was developed and its performa nce characteristics determined by [facility] in a manner consistent with CLIA requirements. This test has not been cleared or approved by the [place] d and Drug Administration. Specimen Anatomical Collection Method Collection Time Receive d Time (Source) Location / / Volume Laterality Urine (Urine, 02/12/2022 10:29 02/12/2022 1:01 Midstream) AM CDT PM CDT Adeline Frazier M.D., Ph.D. LAB URINE ORDERABLES Performing Organization Address [facility] Phon e Number [facility] [address] [place] [address] Dr [place], [place] [address] [address] [place] [address] CHAPPELL Drug Abuse Survey with Confirmation, Urine (02/12/2022 10:29 AM CDT)Only the most recent of2 resultswithin the time period is included. [facility] Method Time Signature Alcohol Negative Cutoff: 02/12/2022 [facility] mg/dL 3:10 PM CDT Amphetamines Negative Cutoff: 02/12/2022 [facility] 500 ng/mL 3:10 PM CDT Barbiturates Negative Cutoff: 02/12/2022 [facility] 200 ng/mL 3:10 PM CDT Benzodiazepines Negative Cutoff: 02/12/2022 [facility] 100 ng/mL 3:10 PM CDT Cocaine Negative Cutoff: 02/12/2022 [facility] 150 ng/mL 3:10 PM CDT Comment: This cocaine immunoassay targets benzoyl ecgonine the primary metabolite of cocaine. Opiates Negative Cutoff: 300 ng/mL 02/12/2022 3:10 PM CDT [facility] Phencyclidine Negative Cutoff: 25 ng/mL 02/12/2022 3:10 PM CDT [facility] Tetrahydrocannabinol Negative Cutoff: 50 ng/mL 02/12/2022 3 :10 PM CDT [facility] Comment: This immunoassay targets delta-9 tetrahy drocannabinol carboxylic acid (THC-COOH), a metabolite of delta-9 tetr ahydrocannabinol the main psychoactive ingredient of marijuana. ----ADDITIONAL INFORMATION---- This report is intended for use in clini ada monitoring or management of patients. ??It is not intended for use i n employment-related testing. Specimen Anatomical Collection Method Collection Time Receive d Time (Source) Location / / Volume Laterality Urine (Urine, 02/12/2022 10:29 02/12/2022 1:53 Midstream) AM CDT PM CDT Adeline Frazier M.D., Ph.D. LAB URINE ORDERABLES Performing Organization Address [facility] Phon e Number [address] [place], [place] [address] [place] [address] CHAPPELL AFP (Alpha-Fetoprotein), Tumor Marker (02/12/2022 10:16 AM CDT) athologist Signature Alpha-Fetoprote 7.9 ng/mL 02/12/2022 [facility] in, Tumor 3:41 PM CDT Marker, S Comment: ----REFERENCE VALUE---- [...] method is an immunoenzymatic assay manufactured by [employer]. and is tested on the [employer] DxI 800. Values obtained with different [...] Location / / Volume Laterality Blood (Blood, 02/12/2022 10:16 02/12/2022 2:35 Venous) AM CDT PM CDT Matthew Santillan M.D. LAB BLOOD ADD-ON Performing Organization Address City/State/[facility] Phon e Number [facility] [address] [place], [place] [address] [address] [facility] [place] [address] CHAPPELL (ABNORMAL) Prothrombin Time (PT) (02/12/2022 10:16 AM CDT)Only the most recent of11 resultswithin the time period is included. [facility] Method Time Signature Prothrombin 30.8 (H) 9.4 - 12.5 02/12/2022 DTL Time, P sec 10:50 AM CDT INR 2.7 0.9 - 1.1 02/12/2022 DTL 10:50 AM CDT Comment: ----ADDITIONAL INFORMATION---- Standard intensity warfarin therapeutic range: 2.0 to 3.0 ?? High intensity warfarin therapeutic rang e: 2.5 to 3.5 Specimen Anatomical Collection Method Collection Time Receive d Time (Source) Location / / Volume Laterality Blood (Blood, 02/12/2022 10:16 02/12/2022 Venous) AM CDT 10:27 AM CDT Kerry Naranjo APRN, C.N.P., M.S.N. LAB BLOOD ADD-ON Performing Organization Address City/State/[facility] Code Phon e Number [facility] - [address] [place] [address] [address] [place] [address] Laboratories-[facility] [address] (ABNORMAL) CBC with Differential, Blood (02/12/2022 10:16 AM CDT)Only the most recent of23 resultswithin the time period is included. [facility] Method Time Signature Hemoglobin 9.4 (L) 11.6 - 02/12/2022 DTL 15.0 g/dL 10:33 AM CDT Hematocrit 27.6 (L) 35.5 - 02/12/2022 DTL 44.9 % 10:33 AM CDT Erythrocytes 2.70 (L) 3.92 - 02/12/2022 DTL 5.13 10:33 AM CDT x10(12)/L MCV 102.2 (H) 78.2 - 02/12/2022 DTL 97.9 fL 10:33 AM CDT RBC Distrib Width 22.5 (H) 12.2 - 02/12/2022 DTL 16.1 % 10:33 AM CDT Platelet Count 49 (L) 157 - 371 02/12/2022 DTL x10(9)/L 10:33 AM CDT Leukocytes 5.7 3.4 - 9.6 02/12/2022 DTL x10(9)/L 10:33 AM CDT Neutrophils 4.18 1.56 - 02/12/2022 DTL 6.45 10:33 AM CDT x10(9)/L Lymphocytes 0.93 (L) 0.95 - 02/12/2022 DTL 3.07 10:33 AM CDT x10(9)/L Monocytes 0.46 0.26 - 02/12/2022 DTL 0.81 10:33 AM CDT x10(9)/L Eosinophils 0.09 0.03 - 02/12/2022 DTL 0.48 10:33 AM CDT x10(9)/L Basophils <0.03 0.01 - 02/12/2022 DTL 0.08 10:33 AM CDT x10(9)/L Specimen Anatomical Collection Method Collection Time Receive d Time (Source) Location / / Volume Laterality Blood (Blood, 02/12/2022 10:16 02/12/2022 Venous) AM CDT 10:27 AM CDT Mattehw Santillan M.D. LAB BLOOD ADD-ON Performing Organization Address City/State/ZIP Code Phon e Number [facility] - [address] [place], [place] [address] [place] [address] Laboratories-[facility] [address] (ABNORMAL) CRP (C-Reactive Protein) (02/12/2022 10:16 AM CDT)Only the most recent of2 resultswithin the time period is included. P athologist Signature C-Reactive 12.1 (H) <=8.0 mg/L 02/12/2022 DTL Protein (CRP), 11:18 AM CDT S Specimen Anatomical Collection Method Collection Time Receive d Time (Source) Location / / Volume Laterality Blood (Blood, 02/12/2022 10:16 02/12/2022 Venous) AM CDT 10:57 AM CDT Matthew Santillan M.D. LAB BLOOD ADD-ON Performing Organization Address City/State/[facility] Code Phon e Number [facility] - [address] 200 [facility] Uric Acid (02/12/2022 10:16 AM CDT) P athologist Signature Uric Acid, S 5.4 2.7 - 6.1 02/12/2022 DTL mg/dL 11:15 AM CDT Specimen Anatomical Collection Method Collection Time Receive d Time (Source) Location / / Volume Laterality Blood (Blood, 02/12/2022 10:16 02/12/2022 Venous) AM CDT 10:57 AM CDT Matthew Santillan M.D. LAB BLOOD ADD-ON Performing Organization Address City/[facility] Phon e Number [facility] - [address] (ABNORMAL) Bilirubin, Direct (02/12/2022 10:16 AM CDT)Only the most recent of2 resultswithin the time period is included. P athologist Signature Bilirubin, 4.4 (H) 0.0 - 0.3 02/12/2022 DTL Direct, S mg/dL 11:15 AM CDT Specimen Anatomical Collection Method Collection Time Receive d Time (Source) Location / / Volume Laterality Blood (Blood, 02/12/2022 10:16 02/12/2022 Venous) AM CDT 10:57 AM CDT Matthew Santillan M.D. LAB BLOOD ADD-ON Performing Organization Address City/[facility] Phon e Number [facility] - [address] (ABNORMAL) Comprehensive Metabolic Panel (02/12/2022 10:16 AM CDT)Only the most recent of11 resultswithin the time period is included. P athologist Signature Potassium, S 4.0 3.6 - 5.2 02/12/2022 DTL mmol/L 11:18 AM CDT Sodium, S 136 135 - 145 02/12/2022 DTL mmol/L 11:18 AM CDT Chloride, S 100 98 - 107 02/12/2022 DTL mmol/L 11:18 AM CDT Bicarbonate, S 23 22 - 29 02/12/2022 DTL mmol/L 11:18 AM CDT Anion Gap 13 7 - 15 02/12/2022 DTL 11:18 AM CDT BUN (Blood Urea 11 6 - 21 02/12/2022 DTL Nitrogen), S mg/dL 11:18 AM CDT Creatinine 0.64 0.59 - 02/12/2022 DTL 1.04 mg/dL 11:18 AM CDT Estimated GFR >90 >=60 02/12/2022 DTL (eGFR) mL/min/BSA 11:18 AM CDT Comment: Estimated GFR calculated using the 2020 CKD_EPI creatinine equation. Calcium, Total, S 9.3 8.6 - 10.0 mg/dL 02/12/2022 11:1 8 AM DTL CDT Glucose, S 156 (H) 70 - 140 mg/dL 02/12/2022 11:18 AM DTL CDT Protein, Total, S 5.8 (L) 6.3 - 7.9 g/dL 02/12/2022 11:18 AM DTL CDT Albumin, S 4.2 3.5 - 5.0 g/dL 02/12/2022 11:18 AM DTL CDT Aspartate Aminotransferase 87 (H) 8 - 43 U/L 02/12/2022 1 1:18 AM DTL (AST), S CDT Alkaline Phosphatase, S 401 (H) 35 - 104 U/L 02/12/2022 11 :18 AM DTL CDT Alanine Aminotransferase 32 7 - 45 U/L 02/12/2022 11: 18 AM DTL (ALT), S CDT Bilirubin, Total, S 11.5 (H) <=1.2 mg/dL 02/12/2022 11:18 A M DTL CDT Specimen Anatomical Collection Method Collection Time Receive d Time (Source) Location / / Volume Laterality Blood (Blood, 02/12/2022 10:16 02/12/2022 Venous) AM CDT 10:57 AM CDT Matthew Santillan M.D. LAB BLOOD ADD-ON Performing Organization Address City/[facility]/ZIP Code Phon e Number [facility] - [address] [place], [place] [address] [address] [place] [address] Laboratories-[facility] [address] MR Lumbar Spine wo Con-Outside MR Neuro (02/10/2022 12:20 PM CDT) Specimen (Source) Anatomical Collection Method Collection Time Re ceived Time Location / / Volume Laterality 02/10/2022 12:16 PM CDT Narrative [facility] - 02/10/2022 3:59 PM CDT This order has been created and auto-finalized to support the import of outside images. If available, original i nterpretation can be found on the Media Tab in Chart Review, in Document V iewer, or as an image in QREADS. If a re-interpretation or overread is re quired please follow defined workflow. ?? Provider Not In System IMG MRI PROCEDURES Performing Organization Address [facility]/ZIP Code Phon e Number [facility] IIMS NA CT lumbar spine wo con-Outside CT Neuro (02/10/2022 9:05 AM CDT) Specimen (Source) Anatomical Location Collection Method / Collectio n Time Received Time / Laterality Volume Narrative [facility] - 02/10/2022 4:01 PM CDT This order has been created [...] CT PROCEDURES Performing Organization Address City/[facility]/ZIP Code Phon e Number [facility] NA US Paracentesis with Imaging Guidance (02/05/2022 3:53 PM CDT)Only the most recent of8 resultswithin the [...] (02/05/2022 3:17 PM CDT)Only the most recent of6 resultswithin the time period is included. [facility] Method Time Signature Fluid Type Peritoneal- [...] characteri stics were determined by [facility] in a manner co nsistent with [...] Reviewed by: Ruth 02/05/2022 8:38 PM CDT [facility] Specimen Anatomical Collection Method Collection Time Receive d Time (Source) Location / / Volume Laterality Fluid 02/05/2022 3:17 PM 2 3:54 (Peritoneal CDT PM CDT Fluid) Matthew Santillan M.D. LAB BODY FLUIDS AND STOOLS ORDERABLES Performing Organization Address City/[facility]/ZIP [facility] Phon e Number [facility] - [address] [place], [place] [address] [address] [place] [address] Laboratories-[address] Gram Stain (02/05/2022 3:17 PM CDT)Only the most recent of3 resultswithin [...] GENERAL ORDERABLES Performing Organization Address City/[facility] Phon e Number [facility] - [address] [place], [place] [address] [place] [address] Laboratories-[place] [address] [facility] CK (Creatine Kinase) (02/02/2022 6:14 AM CDT) P athologist Signature Creatine Kinase 29 26 - 192 02/02/2022 DTL (CK), S U/L 7:44 AM CDT Specimen Anatomical Collection Method Collection Time Receive d Time (Source) Location / / Volume Laterality Blood (Blood, 02/02/2022 6:14 AM 02/03/20 22 7:21 Venous) CDT AM CDT Darrick Santillan LAB BLOOD ADD-ON Performing Organization Address City/[facility]/ZIP Code Phon e Number [facility] - [address] [place], [place] 55 [place] [address] Laboratories-[address] (ABNORMAL) Basic Metabolic Panel (02/02/2022 6:14 AM CDT)Only the most recent of 23 resultswithin the time period is included. P [...] Organization Address City/State/ZIP Code Phon e Number [facility] - [address] [place] [address] [address] [place] [address] Laboratories[address] Chest Angiogram and Pulmonary Arteries [...] effusion, and anasarca. 3. Malpositioned IUD.. Paty L Ashlyn P.A.-C. IMG CT PROCEDURES CT Abdomen Pelvis [...] CDT Specific 1.020 1.005 - 02/01/2022 PCED [place], 1.030 1:44 PM CDT POCT, U Blood, [...] City/State/ZIP Code Phon e Number POC [facility] [address] [place] [address] OUTPATIENT LABS PCED [facility] Laboratories - [place], [place] [address] [place] [address] Osmolality, Urine (02/01/2022 1:37 [...] URINE ORDERABLES Performing Organization Address City/[facility] Phon e Number [facility] - [address] [place], [place] [address] [address] [facility] [place], [place] [address] [place] [address] (ABNORMAL) Dipstick, Urine (02/01/2022 1:37 PM CDT)Only [...] URINE ORDERABLES Performing Organization Address City/[facility] Phon e Number [facility] - [address] [place], [place] [address] 05 [place] [address] pH, Random, Urine (02/01/2022 1:37 PM [...] URINE ORDERABLES Performing Organization Address City/[facility]/ZIP Code Phon e Number [facility] - [address] [place] [address] [address] [facility] [place] [address] Laboratories-[address] (ABNORMAL) Microscopic Manual (02/01/2022 1:37 PM CDT)Only the most recent of5 resultswithin the time period is included. P athologist Signature Microscopy Abnormal 02/01/2022 DTL 8:35 PM CDT RBC <3 <3 /hpf 02/01/2022 DTL 8:35 PM CDT WBC 1-3 /hpf 02/01/2022 DT 8:35 PM CDT Comment: ----REFERENCE VALUE---- 1-3 ??(Males) 1-10 (Females) Transitional Epithelial Cells 1-3 (A) /hpf 02/01/2022 8:35 PM CDT DTL Specimen Anatomical Collection Method Collection Time Receive d Time (Source) Location / / Volume Laterality Urine 02/01/2022 1:37 PM 2 2:09 CDT PM CDT Paty Goldberg P.A.-C. LAB URINE ORDERABLES Performing Organization Address City/[facility] Code Phon e Number [facility] - [address] [place] [address] [address] [place] [place] [address] Laboratories-[address] (ABNORMAL) Gram Stain, Urine (02/01/2022 1:37 [...] URINE ORDERABLES Performing Organization Address City/[facility] Phon e Number [facility] - [address] [place], [place] [address] [address] [facility] [place], [place] [address] [place] [address] (ABNORMAL) Urinalysis with Microscopic: Urine, Midstream (02/01/2022 [...] URINE ORDERABLES Performing Organization Address City/[facility]/ZIP Code Phon e Number [facility] - [address] [place], [place] [address] [address] [facility] [place], [place] [address] [place] [address] Lactate (02/01/2022 1:32 PM CDT)Only the most [...] City/State/ZIP Code Phon e Number [facility] - [address] [place], [place] [address] [facility] [place] [address] Laboratories-[facility] [address] DX Chest AP or [...] of6 resultswithin the time period is included. [facility] Method Time Signature Bacteria/Adriana No growth [...] O RDERABLES Performing Organization Address City/[facility]/ZIP [facility] Phon e Number [facility] - [address] [place] [address] [address] [facility] [place], [place] [address] [place] [address] Venous Blood Gas and Electrolytes CG8+, POCT [...] - DEVICE Performing Organization Address [facility] Code Phon e Number [facility] - [address] [place], [place] [address] [facility] [place] [address] Lactate, POCT (02/01/2022 10:36 AM CDT)Only [...] POCT ORDERABLES - DEVICE Performing Organization Address City/[facility]/ZIP Code Phon e Number [facility] - [address] [place], [place] [address] [address] [facility] [place] [address] [address] (ABNORMAL) Hepatic Function Panel (02/01/2022 10:34 [...] City/State/ZIP Code Phon e Number [facility] - [address] [place] [address] [address] [place] [address] [address] (ABNORMAL) Ammonia (02/01/2022 10:34 AM CDT)Only [...] City/State/ZIP Code Phon e Number [facility] - [address] [place], [place] [address] [place] [address] [facility] 200 [facility] ECG 12 Lead (02/01/2022 10:22 AM CDT)Only the most recent of4 resultswithin the time period is included. P athologist Signature Ventricular Rate 91 BPM MUSE ECG/Min ID Interval 152 ms MUSE QRSD Interval 86 ms MUSE QT Interval 398 ms MUSE QTC Interval 489 ms MUSE P [place] -3 degrees MUSE R [place] 16 degrees MUSE T Wave [place] 5 degrees MUSE Specimen Anatomical Collection Method [...] CT PROCEDURES Performing Organization Address City/[facility]/ZIP Code Phon e Number [facility] NA (ABNORMAL) Hematocrit (01/28/2022 1:36 PM CDT)Only the most recent of2 results within the time period is included. P athologist Signature Hematocrit 22.0 (L) 35.5 - 44.9 01/28/2022 [facility] % 2:10 PM CDT Specimen Anatomical Collection Method Collection Time Receive d Time (Source) Location / / Volume Laterality Blood (Blood, 01/28/2022 1:36 PM 01/29/20 2:08 Venous) CDT PM CDT Yue Silver M.D. LAB BLOOD ADD-ON Performing Organization Address City/[facility]/ZIP Code Phon e Number [facility] - [address] [place] [address] [address] [place] [address] [address] US Lower Extremity Veins Bilateral (01/28/2022 [...] man agement can be found on the [employer] site. Link [email or web address] Procedure Note Migue Talavera M.D. - 01/28/2022Form [...] man agement can be found on the [employer] site. Link [email or web address] IMPRESSION: 1. Negative for acute DVT within [...] City/State/ZIP Code Phon e Number [facility] - [address] [place] [address] (ABNORMAL) CBC without Differential (01/28/2022 5:28 AM CDT)Only the most recent of11 resultswithin [...] BLOOD ADD-ON Performing Organization Address City/[facility] Code Phon e Number [facility] - [address] [place], [place] [address] [place] [address] (ABNORMAL) PT-Fibrinogen (01/26/2022 6:58 PM CDT) P athologist Signature PT-Fibrinogen, 241 (L) 261 - 595 01/27/2022 DTL P mg/dL 9:36 AM CDT Specimen Anatomical Collection Method Collection Time Receive d Time (Source) Location / / Volume Laterality Blood 01/26/2022 6:58 PM 7:12 CDT AM CDT Darrick Santillan LAB BLOOD NON ADD-ON Performing Organization Address City/State/ZIP Code Phon e Number [facility] - [address] [place], [place] [address] [place] [address] Laboratories-[facility] [address] (ABNORMAL) DIC/ICF Profile (01/26/2022 6:58 PM CDT) [facility] Method Time Signature Prothrombin Time 25.2 [...] characteri stics were determined by [facility] in a manner co nsistent with [...] 01/28/20 7:12 Venous) CDT AM CDT Narrative [facility] - [facility] - 01/27/2022 5:26 PM CDT Specimen Information: Specimen ID: [id number] Specimen Type: Blood Specimen Collection Start Date: 01/27/20 ??6:58 PM Specimen Received Date: 01/27/2022 ??7:1 2 AM Specimen ID: [id number] Specimen Type: Blood Specimen Collection Start Date: 01/27/20 ??6:58 PM Specimen Received Date: 01/27/2022 ??7:1 2 AM Specimen ID: [id number] Specimen Type: Blood Specimen Collection Start Date: 01/27/20 ??6:58 PM Specimen Received Date: 01/27/2022 ??7:1 2 AM Specimen ID: [id number] Specimen Type: Blood Specimen Collection Start Date: 01/27/20 ??6:58 PM Specimen Received Date: 01/27/2022 ??7:1 2 AM Specimen ID: [id number] Specimen Type: Blood Specimen Collection Start Date: 01/27/20 ??6:58 PM Specimen Received Date: 01/27/2022 ??7:1 2 AM Darrick Santillan LAB BLOOD NON ADD-ON Performing Organization Address City/State/ZIP Code Phon e Number [facility] - [address] [place] [address] [address] [place] [address] [facility] 200 [facility] (ABNORMAL) Coag Factor X Assay, P (01/26/2022 6:58 PM CDT) athologist Signature Coag Factor X 29 (L) 70 - 150 % 01/27/2022 DTL Assay, P 12:19 PM CDT Comment: ----ADDITIONAL INFORMATION---- This test has been modified from the man ufacturer's instructions. Its performance characteri stics were determined by [facility] in a manner co nsistent with CLIA requirements. This test has not bee n cleared or approved by the U.S. Food and Drug Admin istration. Specimen Anatomical Collection Method Collection Time Receive d Time (Source) Location / / Volume Laterality Blood 01/26/2022 6:58 PM 2 CDT 11:30 AM CDT Darrick Santillan LAB BLOOD ADD-ON Performing Organization Address City/[facility] Phon e Number [facility] - [address] [place], [place] [address] [place] [address] [facility]-[address] Reptilase Time, Plasma (01/26/2022 6:58 PM CDT) athologist Signature Reptilase Time, 21.0 14.0 - 23.9 01/27/2022 DT P sec 11:03 AM CDT Comment: ----ADDITIONAL INFORMATION---- This test has been modified from the doug last's instructions. Its performance characteri stics were determined by [facility] in a manner co nsistent with CLIA requirements. This test has not bee n cleared or approved by the U.S. Food and Drug Admin istration. Specimen Anatomical Collection Method Collection Time Receive d Time (Source) Location / / Volume Laterality Blood 01/26/2022 6:58 PM 2 7:12 CDT AM CDT Darrick Santillan LAB BLOOD ADD-ON Performing Organization Address City/[facility] Phon e Number [facility] - [address] [place] [address] 559 05 [place] [address] [facility]-[address] (ABNORMAL) Soluble Fibrin Monomer (01/26/2022 6:58 PM CDT) athologist Signature Soluble Fibrin 165 (H) <=8 mcg/mL 01/27/2022 DT Monomer 10:57 AM CDT Comment: ----ADDITIONAL INFORMATION---- This test was developed and its performa nce characteristics determined by [facility] in a manner co nsistent with CLIA requirements. This test has not bee n cleared or approved by the U.S. Food and Drug Admin istration. Specimen Anatomical Collection Method Collection Time Receive d Time (Source) Location / / Volume Laterality Blood 01/26/2022 6:58 PM 2 7:12 CDT AM CDT Darrick Santillan LAB BLOOD NON ADD-ON Performing Organization Address City/[facility]/ZIP [facility] Phon e Number [facility] - [address] [place], [place] [address] [address] [place] [address] Laboratories-[facility] 200 [facility] APTT Mix 1:1 (01/26/2022 6:58 PM CDT) P athologist Signature APTT Mix 1:1 28 25 - 37 sec 01/27/2022 DTL 11:04 AM CDT Comment: ----ADDITIONAL INFORMATION---- This test has been modified from the wever flakitar's instructions. Its performance characteri stics were determined by [facility] in a manner co nsistent with CLIA requirements. This test has not bee n cleared or approved by the U.S. Food and Drug Admin istration. Specimen Anatomical Collection Method Collection Time Receive d Time (Source) Location / / Volume Laterality Blood 01/26/2022 6:58 PM 2 7:12 CDT AM CDT Darrick Santillan LAB BLOOD ADD-ON Performing Organization Address City/[facility] Phon e Number [facility] - [address] [place] [address] [address] [place] [address] [facility] 200 [facility] PT Mix 1:1 (01/26/2022 6:58 PM CDT) P athologist Signature PT Mix 1:1 11.8 9.4 - 12.5 01/27/2022 DTL sec 11:04 AM CDT Comment: ----ADDITIONAL INFORMATION---- This test has been modified from the doug ufacturer's instructions. Its performance characteri stics were determined by [facility] in a manner co nsistent with CLIA requirements. This test has not bee n cleared or approved by the U.S. Food and Drug Admin istration. Specimen Anatomical Collection Method Collection Time Receive d Time (Source) Location / / Volume Laterality Blood 01/26/2022 6:58 PM 2 7:12 CDT AM CDT Darrick Santillan LAB BLOOD ADD-ON Performing Organization Address City/[facility]/ZIP [facility] Phon e Number [facility] - [address] [place], [place] [address] [address] [place] [address] Laboratories-[address] Dilute Russells Viper Venom Time (DRVVT) (01/26/2022 6:58 PM CDT) P athologist Signature DRVVT Screen 0.85 <1.20 ratio 01/27/2022 DTL Ratio 11:04 AM CDT Specimen Anatomical Collection Method Collection Time Receive d Time (Source) Location / / Volume Laterality Blood 01/26/2022 6:58 PM 2 7:12 CDT AM CDT Darrick Santillan LAB BLOOD ADD-ON Performing Organization Address City/[facility] Phon e Number [facility] - [address] [place], [place] [address] [place] [place] [address] [facility]-[address] (ABNORMAL) Coagulation Factor XII Activity Assay (01/26/2022 6:58 PM CDT) P athologist Signature Coag Factor XII 32 (L) 55 - 180 % 01/27/2022 DTL Assay, P 12:47 PM CDT Comment: ----ADDITIONAL INFORMATION---- This test has been modified from the man ufacturer's instructions. Its performance characteri stics were determined by [facility] in a manner co nsistent with CLIA requirements. This test has not bee n cleared or approved by the U.S. Food and Drug Admin istration. Specimen Anatomical Collection Method Collection Time Receive d Time (Source) Location / / Volume Laterality Blood 01/26/2022 6:58 PM 2 CDT 11:30 AM CDT Jwan A Naser M.B.B.S. LAB BLOOD ADD-ON Performing Organization Address City/[facility] Phon e Number [facility] - [address] [place], [place] [address] [place] [address] [facility] 200 [facility] (ABNORMAL) Coagulation Factor XI Activity Assay (01/26/2022 6:58 PM CDT) P athologist Signature Coag Factor XI 18 (L) 55 - 150 % 01/27/2022 DTL Assay, P 12:47 PM CDT Comment: ----ADDITIONAL INFORMATION---- This test has been modified from the wever ufacturer's instructions. Its performance characteri stics were determined by [facility] in a manner co nsistent with CLIA requirements. This test has not bee n cleared or approved by the U.S. Food and Drug Admin istration. Specimen Anatomical Collection Method Collection Time Receive d Time (Source) Location / / Volume Laterality Blood 01/26/2022 6:58 PM 2 CDT 11:30 AM CDT Darrick Santillan LAB BLOOD ADD-ON Performing Organization Address City/[facility] Phon e Number [facility] - [address] [place], [place] [address] [place] [address] Laboratories-[address] (ABNORMAL) Coagulation Factor IX Activity Assay (01/26/2022 6:58 PM CDT) athologist Signature Coag Factor IX 29 (L) 65 - 140 % 01/27/2022 DTL Assay, P 12:47 PM CDT Comment: ----ADDITIONAL INFORMATION---- This test has been modified from the wever cecilactemeliar's instructions. Its performance characteri stics were determined by [facility] in a manner co nsistent with CLIA requirements. This test has not bee n cleared or approved by the U.S. Food and Drug Admin istration. Specimen Anatomical Collection Method Collection Time Receive d Time (Source) Location / / Volume Laterality Blood 01/26/2022 6:58 PM 2 CDT 11:30 AM CDT Jwan A Naser M.B.B.S. LAB BLOOD ADD-ON Performing Organization Address City/[facility] Phon e Number [facility] - [address] [place], [place] [address] [address] [place] [address] [facility] 200 [facility] Coagulation Factor VIII Activity Assay (01/26/2022 6:58 PM CDT) athologist Signature Coag Factor 93 55 - 200 % 01/27/2022 DT VIII Activity 12:19 PM CDT Assay, P Comment: ----ADDITIONAL INFORMATION---- This test has been modified from the [facility] instructions. Its performance characteri stics were determined by [facility] in a manner co nsistent with CLIA requirements. This test has not bee n cleared or approved by the U.S. Food and Drug Admin istration. Specimen Anatomical Collection Method Collection Time Receive d Time (Source) Location / / Volume Laterality Blood 01/26/2022 6:58 PM 2 CDT 11:30 AM CDT Darrick DanielSSuma LAB BLOOD ADD-ON Performing Organization Address City/[facility] Phon e Number [facility] - [address] [place], [place] [address] [address] [place] [address] [facility] 200 [facility] (ABNORMAL) Coagulation Factor VII Activity Assay (01/26/2022 6:58 PM CDT) athologist Signature Coag Factor VII 13 (L) 65 - 180 % 01/27/2022 DTL Assay, P 12:19 PM CDT Comment: ----ADDITIONAL INFORMATION---- This test has been modified from the wever cecilactemeliar's instructions. Its performance characteri stics were determined by [facility] in a manner co nsistent with CLIA requirements. This test has not bee n cleared or approved by the U.S. Food and Drug Admin istration. Specimen Anatomical Collection Method Collection Time Receive d Time (Source) Location / / Volume Laterality Blood 01/26/2022 6:58 PM 2 CDT 11:30 AM CDT Darrick DanielSSuma LAB BLOOD ADD-ON Performing Organization Address City/[facility] Phon e Number [facility] - [address] [place], [place] [address] [place] [address] [facility] 200 [facility] (ABNORMAL) Coagulation Factor V Activity Assay (01/26/2022 6:58 PM CDT) athologist Signature Coag Factor V 18 (L) 70 - 165 % 01/27/2022 DTL Assay, P 12:19 PM CDT Comment: ----ADDITIONAL INFORMATION---- This test has been modified from the [facility] instructions. Its performance characteri stics were determined by [facility] in a manner co nsistent with CLIA requirements. This test has not bee n cleared or approved by the U.S. Food and Drug Admin istration. Specimen Anatomical Collection Method Collection Time Receive d Time (Source) Location / / Volume Laterality Blood 01/26/2022 6:58 PM 2 CDT 11:30 AM CDT Darrick DanielSSuma LAB BLOOD ADD-ON Performing Organization Address City/[facility] Phon e Number [facility] - [address] [place], [place] [address] [place] [address] Laboratories-[address] (ABNORMAL) Coagulation Factor II Activity Assay (01/26/2022 6:58 PM CDT) athologist Signature Coag Factor II 28 (L) 75 - 145 % 01/27/2022 DTL Assay, P 12:19 PM CDT Comment: ----ADDITIONAL INFORMATION---- This test has been modified from the wever cecilactemeliar's instructions. Its performance characteri stics were determined by [facility] in a manner co nsistent with CLIA requirements. This test has not bee n cleared or approved by the U.S. Food and Drug Admin istration. Specimen Anatomical Collection Method Collection Time Receive d Time (Source) Location / / Volume Laterality Blood 01/26/2022 6:58 PM 2 CDT 11:30 AM CDT Darrick DanielS. LAB BLOOD ADD-ON Performing Organization Address City/[facility]/ZIP Code Phon e Number [facility] - [address] [place], [place] [address] [place] [address] [facility] [address] (ABNORMAL) Copper (01/26/2022 6:57 PM CDT) P athologist Signature Copper, S 58 (L) 77 - 206 01/27/2022 SDSC mcg/dL 11:02 AM CDT Comment: ----ADDITIONAL INFORMATION---- This test was developed and its performa nce characteristics determined by [facility] in a manner consistent with CLIA requirements. This test has not been cleared or approved by the U.S. Meggan d and Drug Administration. Specimen Anatomical Collection Method Collection Time Receive d Time (Source) Location / / Volume Laterality Blood (Blood, 01/26/2022 6:57 PM 01/28/20 22 7:45 Venous) CDT AM CDT Darrick Santillan LAB BLOOD NON ADD-ON Performing Organization Address City/[facility] Phon e Number [facility] [address] [place] [address] [address] [place] [address] [place] Zinc (01/26/2022 6:57 PM CDT) athologist Signature Zinc, S 66 60 - 106 01/27/2022 SDSC mcg/dL 11:02 AM CDT Comment: ----ADDITIONAL INFORMATION---- This test was developed and its performa nce characteristics determined by [facility] in a manner consistent with CLIA requirements. This test has not been cleared or approved by the U.S. Meggan d and Drug Administration. Specimen Anatomical Collection Method Collection Time Receive d Time (Source) Location / / Volume Laterality Blood (Blood, 01/26/2022 6:57 PM 01/28/20 22 7:45 Venous) CDT AM CDT Darrick DanielSSuma LAB BLOOD NON ADD-ON Performing Organization Address City/[facility]/ZIP Code Phon e Number [facility] [address] [place], [place] [address] [place] [address] [facility] [address] TA COULTER ENDOTRACHEAL AIRWAY (01/26/2022 3:51 PM CDT) Narrative [...] Organization Address City/State/ZIP Code Phon e Number IINM IINM NA Upper GI Endoscopy (01/26/2022 3:18 PM CDT) Specimen (Source) Anatomical Collection Method Collection Time Re ceived Time Location / / Volume Laterality 01/26/2022 3:18 PM CDT [facility]ressions [facility] 01/26/[facility]22 10:50 PM CDT Post-op Diagnoses: ? - Large (> 5 mm) esophageal varic es with no bleeding and no stigmata of ? recent bleeding. Banded x 6. ? - Portal hypertensive gastropathy (non-bleeding). ? - No specimens collected. Narrative [facility] - 01/26/2022 10:50 PM CDT Otto [...] No immedia te complications. 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 athologist Signature Hemoglobin 7.4 (L) 11.6 - 15.0 01/26/2022 ST[facility] g/dL 11:25 AM CDT Specimen Anatomical Collection Method Collection Time Receive d Time (Source) Location / / Volume Laterality Blood (Blood, 01/26/2022 11:16 01/26/2022 Venous) AM CDT 11:22 AM CDT Gerda Hull M.D., M.S. LAB BLOOD ADD-ON Performing Organization Address City/State/ZIP Code Phon e Number [facility] - [address] STMA [address] Transfuse Emergency Released Red Blood Cells (Uncrossmatched) (01/26/2022 9:59 AM CDT) Darrick Santillan BLOOD TRANSFUSION ORDERABLES Type and Screen (with reflex Antibody ID) (01/26/2022 4:48 AM CDT)Only the most recent of4 resultswithin the time period is included. [facility] gist Method Time Signature ABORh B [...] BANK TEST ORDERABL ES Performing Organization Address [facility] Phon e Number [facility] [address] STRM [address] HIV-1/-2 Ag and Ab Screen, Plasma (01/25/2022 3:36 PM CDT) P athologist Signature HIV-1/-2 Ag Negative Negative 01/26/2022 [facility] and Ab Screen, 11:53 AM [...] ORD ERABLES Performing Organization Address City/[facility] Phon e Number [facility] [address] [place], [place] [address] 05 [place], [place] [address] [place], [place] [address] [place] Transfuse Red Blood Cells : (01/25/2022 1:08 PM CDT)Only the most recent of5 resultswithin the time period is included. Darrick [...] City/State/ZIP Code Phon e Number [facility] - [address] [place], [place] [address] (ABNORMAL) SPSMA Result (01/25/2022 5:35 AM CDT)Only the most recent of3 results within the time period is included. Analysis Performed At Patho logist Time Signature Neutrophilic Segs 74 50 - 75 % 01/25/2022 [facility] 7:03 AM CDT Lymphocytes 17 (L) 18 - 42 % 01/25/2022 PM 7:03 AM CDT Monocytes 3 2 - 11 % 01/25/2022 [facility] 7:03 AM CDT Eosinophils 5 (H) 1 - 3 % 01/25/2022 [facility] 7:03 AM CDT Basophils 1 0 - 2 % 01/25/2022 [facility] 7:03 AM CDT Manual Absolute 2.96 1.56 - 01/25/2022 [facility] Neutrophil Count 6.45 7:03 AM CDT x10(9)/L [...] Reviewed by: Tech 01/25/2022 7:03 AM CDT [facility] Specimen Anatomical Collection Method Collection Time Receive d Time (Source) Location / / Volume Laterality Blood (Blood, 01/25/2022 5:35 AM 01/26/20 22 5:57 Venous) CDT AM CDT Darrick DanielSSuma LAB BLOOD ADD-ON Performing Organization Address City/State/[facility] Code Phon e Number [facility] - [address] [place], [place] [address] [place] [address] [facility] 200 [facility] LD (Lactate Dehydrogenase) (01/25/2022 5:35 AM CDT)Only the most recent of2 resultswithin the time period is included. [facility] LD 197 122 - 222 01/25/2022 DTL U/L 6:35 AM CDT Specimen Anatomical Collection Method Collection Time Receive d Time (Source) Location / / Volume Laterality Blood (Blood, 01/25/2022 5:35 AM 01/26/20 22 6:18 Venous) CDT AM CDT Darrick DanielSSuma LAB BLOOD NON ADD-ON Performing Organization Address City/State/ZIP Code Phon e Number [facility] - [address] (ABNORMAL) Haptoglobin (01/25/2022 5:35 AM CDT)Only the most recent of2 results within the time period is included. athologist Signature Haptoglobin, S <14 (L) 30 - 200 01/26/2022 [facility] mg/dL 10:51 AM CDT Specimen Anatomical Collection Method Collection Time Receive d Time (Source) Location / / Volume Laterality Blood 01/25/2022 5:35 AM 6:58 CDT AM CDT Darrick Santillan LAB BLOOD ADD-ON Performing Organization Address City/[facility]/ZIP Code Phon e Number [facility] [address] [place] [address] 05 [place], [place] [address] [place], [place] [address] [place] (ABNORMAL) Reticulocytes (01/25/2022 5:30 AM CDT) [facility] [employer] [place] Method Time Signature Reticulocytes, B 6.67 (H) [...] BLOOD ADD-ON Performing Organization Address City/[facility]/ZIP Code Phon e Number [facility] - [address] [place] [address] [address] [facility] [address] [facility] Direct Antiglobulin Test (Poly) (01/25/2022 5:30 AM CDT) [facility] [place] Method Time Signature Direct Negative Negative 01/25/2022 STRM Antiglobulin 1:15 PM CDT Test, Polyspecific Specimen Anatomical Collection Method Collection Time Receive d Time (Source) Location / / Volume Laterality Blood (Blood, 01/25/2022 5:30 AM 01/26/20 Venous) CDT 11:46 AM CDT Darrick DanielSSuma LAB BLOOD BANK TEST ORDERABL ES Performing Organization Address City/[facility]/ZIP Code Phon e Number [facility] - [address] [place], [place] [address] [address] [place] [address] Laboratories-[address] Magnesium (01/25/2022 5:30 AM CDT)Only the most recent of7 resultswithin the time period is included. athologist Signature Magnesium, S 1.9 1.7 - 2.3 01/25/2022 DTL mg/dL 5:21 PM CDT Specimen Anatomical Collection Method Collection Time Receive d Time (Source) Location / / Volume Laterality Blood (Blood, 01/25/2022 5:30 AM 01/26/20 22 5:06 Venous) CDT PM CDT Darrick DanielSSuma LAB BLOOD ADD-ON Performing Organization Address City/[facility]/ZIP Code Phon e Number [facility] - [address] [place], [place] [address] [address] [place] [address] Laboratories-[address] Sodium, Random, Urine (01/24/2022 3:32 PM [...] URINE ORDERABLES Performing Organization Address City/[facility]/ZIP Code Phon e Number [facility] - [address] Creatinine, Random, Urine (01/24/2022 3:32 PM CDT) athologist Signature Creatinine, 60 16 - 326 01/24/2022 DTL Random, U mg/dL 4:50 PM CDT Specimen Anatomical Collection Method Collection Time Receive d Time (Source) Location / / Volume Laterality Urine (Urine, 01/24/2022 3:32 PM 01/25/20 22 3:59 Midstream) CDT PM CDT Yue Silver M.D. LAB URINE ORDERABLES Performing Organization Address City/[facility] Phon e Number [facility] - [address] (ABNORMAL) Bilirubin, Total (01/24/2022 1:35 PM [...] BLOOD ADD-ON Performing Organization Address City/[facility] Code Phon e Number [facility] - [address] Upper GI Endoscopy (01/23/2022 3:35 PM [...] examination. ? - No specimens collected. Narrative [employer] - 01/23/2022 4:08 PM CDT Otto [...] City/State/ZIP Code Phon e Number [employer] NA Protein, Total, Body Fluid (01/21/2022 10:00 AM CDT)Only the most recent of2 resultswithin [...] ical findings. All other fluids refer to [email or web address] for further inter pretive information. This test has been modified from the sample maker original's instructions. Its perform ance characteristics were determined by [facility] in a manner consistent with CLIA [...] AND STOOLS O JOSE Performing Organization Address [facility] Phon e Number [address] Bacterial Culture, Aerobic + Susc (01/21/2022 10:00 AM CDT)Only the most recent of3 resultswithin the time period is included. [facility] gist Method Time Signature Bacterial No growth 01/26/2022 DTL Culture, after 5 7:48 AM CDT Aerobic + Susc days of incubation. Specimen Anatomical Collection Method Collection Time Receive d Time (Source) Location / / Volume Laterality Fluid 01/21/2022 10:00 01/21/2022 (Peritoneal AM CDT 11:52 AM CDT Fluid) Comment: Specimen Source Site: Fluid Narrative [facility] - [facility] - 01/26/2022 7:48 AM CDT Bacterial Culture: Received Bactec aerob ic and Bactec anaerobic bottles Matthew Becerril M.D. LAB MICROBIOLOGY - GENERAL O JOSE Performing Organization Address City/[facility] Phon e Number [facility] - [id number] [place] [address] (ABNORMAL) Iron and Total Iron-Binding Capacity (01/21/2022 [...] BLOOD ADD-ON Performing Organization Address City/[facility] Phon e Number [facility] - [id number] [place] [address] (ABNORMAL) Ferritin (01/21/2022 7:21 AM CDT) athologist [facility] Ferritin, S 564 (H) 11 - 307 01/22/2022 DTL mcg/L 5:18 PM CDT Specimen Anatomical Collection Method Collection Time Receive d Time (Source) Location / / Volume Laterality Blood (Blood, 01/21/2022 7:21 AM 01/23/20 4:23 Venous) CDT PM CDT Sree Little M.D. LAB BLOOD ADD-ON Performing Organization Address City/State/ZIP [facility] Phon e Number [facility] - [id number] [place] [address] Lipase (01/21/2022 2:40 AM CDT)Only the most [...] BLOOD ADD-ON Performing Organization Address [facility] Phon e Number [facility] - [address] [place], [place] [address] [place] [address] Microscopic Automated (01/20/2022 8:57 PM CDT)Only the most recent of2 results within the time period is included. P athologist Signature Microscopy Normal 01/20/2022 DT 10:03 PM CDT WBC 1-3 /hpf 01/20/2022 DT 10:03 PM CDT Comment: ----REFERENCE VALUE---- 1-3 ??(Males) 1-10 (Females) Casts, Hyaline 4-10 /lpf 01/20/2022 10:03 PM CDT D TL Specimen Anatomical Collection Method Collection Time Receive d Time (Source) Location / / Volume Laterality Urine 01/20/2022 8:57 PM 9:23 CDT PM CDT Cody Knight M.D. LAB URINE ORDERABLES Performing Organization Address [facility] Phon e Number [facility] - [address] [place], [place] [address] [place] [address] [facility]-[address] Bacterial Culture, Aerobic + Susc, Urine [...] O RDERABLES Performing Organization Address City/[facility]/ZIP [facility] Phon e Number [facility] - [address] [place], [place] [address] 05 [place] [address] Laboratories-[address] pH, Urine (01/20/2022 8:57 PM CDT)Only the most recent of2 resultswithin the time period is included. athologist Signature pH, U 5.5 4.5 - 8.0 01/20/2022 9:48 DTL PM CDT Specimen Anatomical Collection Method Collection Time Receive d Time (Source) Location / / Volume Laterality Urine 01/20/2022 8:57 PM 2 9:23 CDT PM CDT Cody Knight M.D. LAB URINE ORDERABLES Performing Organization Address City/[facility] Phon e Number [facility] - [address] [place] [id number] [address] Osmolality, Urine (01/20/2022 8:57 PM CDT)Only [...] URINE ORDERABLES Performing Organization Address City/[facility] Phon e Number [facility] - [address] hCG (Human Chorionic Gonadotropin), Quantitative, (01/20/2022 [...] BLOOD ADD-ON Performing Organization Address City/[facility]/ZIP [facility] Phon e Number [facility] - [address] [place], [place] [address] [place] [address] [place] [address] Drug Screen Urine (01/10/2022 1:46 PM [...] URINE ORDERABLES Performing Organization Address [facility] Phon e Number [facility] - [address] [place], [place] [address] [place] [address] [place] [address] US Liver with Liver Doppler (01/10/2022 [...] (LD), Body Fluid (01/10/2022 9:51 AM CDT) [facility] gist Method Time Signature Lactate 41 See [...] clinical findings. All other fluids refer to www.[employer] labs.com for further interpretive information. This test has been modified from the man ufacturer's instructions. Its performance characteristics were det ermined by [facility] in a manner consistent with CLIA [...] City/State/ZIP Code Phon e Number [facility] - [address] [place], [place] [address] [place] [address] [facility] [address] Glucose, Body Fluid (01/10/2022 9:51 AM CDT) [...] of infection. All other fluids refer to www.[employer]R Systems for further inter pretive information. This test has been modified from the man ufacturer's instructions. Its performance characteri stics were determined by [facility] in a manner co nsistent with [...] City/State/ZIP Code Phon e Number [facility] - [address] [place], [place] [address] [address] [place] [address] [facility] [address] Amylase, Body Fluid (01/10/2022 [...] atio <1.0. All other fluids refer to www.[employer] for further inter pretive information. This test has been modified from the man ufacturer's instructions. Its performance characteri stics were determined by [facility] in a manner consistent wi CLIA [...] City/State/ZIP Code Phon e Number [facility] - [address] [place] [address] [address] [place] [address] [facility] 200 [facility] Albumin, Body Fluid (01/10/2022 9:51 AM CDT) [...] process. ?? All other fluids refer to www.[employer] labs.[employer] for further interpretive information. This t est has been modified from the sample maker original's instruc tions. Its performance characteristics were determi foreign by [facility] in a manner consistent with CLIA [...] City/State/ZIP Code Phon e Number [facility] - [address] [place], [place] [address] [address] [place] [address] [facility] [address] DX Chest Portable 1 View (01/09/2022 [...] POC, V Asymptomatic (01/09/2022 1:45 PM CDT) [facility] Method Time Signature SARS Undetected Undetected 01/09/2022 DTLR Coronavirus-2 2:05 PM CDT , RNA, Rapid POC, V Comment: Negative for SARS-CoV-2. The Cue COVID-19 test is a molecular jonathan t for SARS-CoV-2, the virus that causes COVID- 19. A Negative result means that the Cue COV ID-19 test did not detect SARS-CoV-2 virus in your sample. Cue COVID-19 test uses the [employer] Mo nitoring System. This test has received Emergency Use Authorization (EUA) by the U.S. Food and Drug Administration (FDA) and is used per man ufacturer instructions. Performance characteristic s were verified by [facility] in a manner consistent with CLIA requirements. Fact sheets for this Emerg ency Use Authorization (EUA) can be found at the following links: Providers: https://[employer].GRR Systems/documentation/prov iders.pdf Patients: https://[employer]/documentation/deshawn ents.pdf SARS Coronavirus 2, Source Nasopharynx DEFAULT 01/09/2022 2:05 PM CDT DTLR Specimen Anatomical Collection Method Collection Time Receive d Time (Source) Location / / Volume Laterality Varies 01/09/2022 1:45 PM 1:45 (Nasopharynx) CDT PM CDT Reese Reyes M.D. LAB MICROBIOLOGY - GENERAL O RDERABLES Performing Organization Address City/[facility]/ZIP Code Phon e Number PERFORMING LABS, [place] [address] INTERFACE Ref Interface [address] [facility] DTLR Performing Labs, [place] [address] Interface [address] [facility] Glucose, POCT (01/09/2022 10:04 AM CDT)Only the [...] POCT ORDERABLES-MANUAL Performing Organization Address City/[facility]/ZIP Code Phon e Number [facility] - [address] [place], [place] [address] [address] [place] [address] [facility] [address] Paracentesis (12/21/2021 2:48 PM CDT) Narrative Divina Ch, James., M.P.H. - 12/02 2:48 PM CDT Divina [...] (THC) Confirmation, Urine (12/15/2021 5:58 PM CDT) [facility] Method Time Signature Carboxy-THC- by 19 Cutoff: 12/18/2021 [facility] GC/MS 3.0 ng/mL 6:38 AM CDT Carboxy-THC Positive. 12/18/2021 [facility] Interpretation 6:38 AM CDT Comment: ----ADDITIONAL INFORMATION---- This report is intended for use in clini ada monitoring and management of patients. ??It is not intended for use i n employment-related testing. This test was developed and its performa nce characteristics determined by [facility] in a manner consistent with CLIA requirements. This test has not been cleared or approved by the U.S. Meggan d and Drug Administration. Specimen Anatomical Collection Method Collection Time Receive d Time (Source) Location / / Volume Laterality Urine 12/15/2021 5:58 PM 7:09 CDT AM CDT Adeline Frazier M.D., Ph.D. LAB URINE ORDERABLES Performing Organization Address [facility] Phon e Number [facility] [address] [address] [place] [address] [place] [address] Laboratory Medicine and Pathology [address] [place] [address] Dr. CHAPPELL Ethyl Glucuronide Confirmation, Random, Urine (12/15/2021 5:51 PM CDT) [facility] Method Time Signature Ethyl Glucuronide Negative Cutoff: 12/17/2021 [facility] Confirmation, U 250 ng/mL 10:34 AM CDT Ethyl Sulfate Negative Cutoff: 12/17/2021 [facility] 100 ng/mL 10:34 AM CDT Ethyl Gluc/Sulfate Negative. 12/17/2021 [facility] Interpretation 10:34 AM CDT Comment: ----ADDITIONAL INFORMATION---- This report is intended for use in clini ada monitoring and management of patients. ??It is not intended for use i n employment-related testing. This test was developed and its performa nce characteristics determined by [facility] in a manner consistent with CLIA requirements. This test has not been cleared or approved by the U.S. Meggan d and Drug Administration. Specimen Anatomical Collection Method Collection Time Receive d Time (Source) Location / / Volume Laterality Urine (Urine, 12/15/2021 5:51 PM 12/16/19 9:55 Midstream) CDT PM CDT Adeline Frazier M.D., Ph.D. LAB URINE ORDERABLES Performing Organization Address City/[facility] Phon e Number [facility] [address] [address] [place] [address] [address] [facility] [place] [address] Laboratory Medicine and Pathology [address] CHAPPELL Phosphatidylethanol (Peth), whole blood- Sent Out Lab (12/15/2021 5:39 PM CDT) Component Value Ref Range Test Analysis Performed Pathologis t Method Time At Signature Phosphatidylethanol NEGATIVE NEGATIVE 12/26/2021 [facility]TI (PEth) ng/mL 1:01 PM CDT Comment: Analyzed compound: PEth 16:0/18:1. ? 4-sjbqdslpt-4-lkyukh-zu-htvvtml-3 -phosphoethanol. ? Analysis performed by Liquid Chromatogra [...] Organization Address City/State/ZIP Code Phon e Number [employer]. [address] [place] [address] Road [place], [place] [address] [email or web address] [email or web address], [facility] [place] [address] [address] [facility] D Paracentesis (12/04/2021 9:57 AM CDT) Narrative [...] City/State/ZIP Code Phon e Number [facility] - [address] [place] [address] [address] [facility] [place] [address] [facility] 200 [facility] (ABNORMAL) Blood Gas with Coox, Venous (12/04/2021 7:30 AM CDT) [facility] gist Method Time Signature Venous pO2 [...] City/State/ZIP Code Phon e Number [facility] - [address] [place] [address] [address] [place] [place] [address] [facility] 200 [facility] Phosphorus Inorganic (11/25/2021 6:55 AM CDT)Only the most recent of5 results [...] Organization Address City/State/ZIP Code Phon e Number [facility] - [address] [place] [address] [place] [address] Laboratories-[address] DX Abdomen Portable Anterior Posterior 1 [...] IMG DIAGNOSTIC IMAGING PROCE DURES Pernicious Anemia [place] (11/21/2021 11:25 AM CDT) athologist Signature Vitamin B12 621 180 - 914 11/21/2021 [facility] Assay, S ng/L 6:21 PM CDT Specimen Anatomical Collection Method Collection Time Receive d Time (Source) Location / / Volume Laterality Blood (Blood, 11/21/2021 11:25 11/21/2021 4:05 Venous) AM CDT PM CDT Dina Campa M.D. LAB BLOOD NON ADD-ON Performing Organization Address City/[facility] Phon e Number [facility] [address] [place] [address] [address] [facility] [place] [address] Laboratory Medicine and Pathology [address] [place] [address] Dr. CHAPPELL Copper, 24 Hour, Urine (11/21/2021 11:00 AM CDT) athologist Signature Copper, 24 Hr, U 19 9 - 71 11/24/2021 [facility] mcg/24 h 10:42 AM CDT Collection 24 h 11/24/2021 [facility] Duration 10:42 AM CDT Volume 815 mL 11/24/2021 [facility] 10:42 AM CDT Comment: ----ADDITIONAL INFORMATION---- This test was developed and its performa nce characteristics determined by [facility] in a manner consistent with CLIA requirements. This test has not been cleared or approved by the U.S. Meggan d and Drug Administration. Specimen Anatomical Collection Method Collection Time Receive d Time (Source) Location / / Volume Laterality Urine (Urine, 24 11/21/2021 11:00 022 3:36 Hours) AM CDT PM CDT Shannan Rand M.D. LAB URINE ORDERABLES Performing Organization Address [facility] Phon e Number [facility] [address] [place] [address] Dr [place] [address] [address] [facility] Dept. [place] [id number] Laboratory Medicine and Pathology [address] [...] at or the on-line test catalog at emere for m ore information. Specimen Anatomical Collection Method Collection Time Receive d Time (Source) Location / / Volume Laterality Blood (Blood, 11/20/2021 6:38 AM 11/21/19 22 8:33 Venous) CDT AM CDT Gerard Andino M.D., M.S. LAB BLOOD ADD-ON Performing Organization Address City/[facility]/ZIP Code Phon e Number [facility] - [address] [place], [place] [address] [address] [place] [address] [facility] [address] Sedimentation Rate (11/19/2021 2:55 [...] City/State/ZIP Code Phon e Number [facility] - [address] [place], [place] [address] [address] [place] [place] [address] [facility] [address] EEG prolonged (11/17/2021 [...] City/State/ZIP Code Phon e Number [facility] - [address] [place], [place] [address] [address] [place] [place] [address] [facility] [address] SARS Coronavirus 2, Antigen, Rapid, V [...] us ing the SARS-CoV-2 Ag Test from [employer], which has received Emergency U se Authorization (EUA) by the U.S. Food and Drug Administration. Fact sheets for this Emergency Use Autho rization (EUA) assay can be found at the following links: For Healthcare Providers: https://www.[employer]R Systems/assets/images/n ew/pdf/nkw-zjh-jjsm-ebqga-vhfolsmp-h yeh-bwb-3-ag-test.pdf?v=4 For Patients: https://www.[employer]/assets/images/n ew/pdf/fwu-gjlbfra-fqgt-sheet-lumira zl-meax-bkk-1-azdbrmw-kjwa.pdf?v=5 SARS CoV-2, Antigen, Rapid, Swab, Nasopharynx 10/31 9:54 AM CDT [facility] Source Specimen Anatomical Collection Method Collection Time Receive d Time (Source) Location / / Volume Laterality Varies 11/13/2021 9:45 AM 9:54 (Nasopharynx) CDT AM CDT Gerard Andino M.D., M.S. LAB MICROBIOLOGY - GENERAL O RDERABLES Performing Organization Address City/State/ZIP Code Phon e Number [facility] - [address] [place], [place] [address] [address] [place] [place] [address] [facility] [address] Head without IV [...] IV CONTRAST COMPARISON: Compared to [facility] head CT fro 03/21/2021. FINDINGS: Beam [...] IV CONTRAST COMPARISON: Compared to [facility] head CT fro 03/21/2021. FINDINGS: Beam [...] Rapid, V Symptomatic (11/12/2021 3:44 AM CDT) [facility] Method Time Signature SARS CoV-2, Detected (A) Undetected 11/12/2021 [facility] PCR, Rapid, V 4:20 AM CDT Comment: ----ADDITIONAL INFORMATION---- This RT-PCR test was performed using the Daniel SARS-CoV-2 and Influenza A/B Reagent assay from [employer], which has received Emergency Use Authori zation(EUA) by the U.S. Food and Drug Administration . Fact sheets for this Emergency Use Autho rization (EUA) assay can be found at the following link s: For Healthcare Providers: https://www.fda.gov/media/009718/downloa d For Patients: https://www.fda.gov/media/437068/downloa d SARS Coronavirus 2, Source, Rapid Swab, Nasopharynx 11/12/2021 3:48 AM CDT [facility] Specimen Anatomical Collection Method Collection Time Receive d Time (Source) Location / / Volume Laterality Varies 11/12/2021 3:44 AM 3:48 (Nasopharynx) CDT AM CDT Rosaura Sevilla M.D., M.P.H. LAB MICROBIOLOGY - GENERA L ORDERABLES Performing Organization Address City/State/ZIP Code Phon e Number [facility] - [address] [place], [place] [address] [address] [place] [place] [address] [facility] [address] Peripheral Venous Access (11/12/2021 [...] City/State/ZIP Code Phon e Number [facility] - [address] [place], [place] [address] [address] [place] [place] [address] Laboratories-[address] Venous Blood Gas and Electrolytes, POCT [...] POCT ORDERABLES - DEVICE Performing Organization Address City/[facility] Phon e Number [facility] - [address] [place], [place] [address] [address] [place] [place] [address] [facility]-[address] (ABNORMAL) APTT (Activated Partial Thromboplastin Time) [...] BLOOD ADD-ON Performing Organization Address City/[facility] Phon e Number [facility] - [address] [place] [address] [address] [place] [place] [address] Laboratories[address] S-TSH (Thyroid-Stimulating Hormone - Sensitive) (11/12/2021 [...] City/State/ZIP Code Phon e Number [facility] - [address] [place], [place] [address] [address] [place] [address] [facility] [address] from Last 3 Months Insurance Payer Benefit Plan / Subscriber ID Effective Phone Address T ype Group Dates [employer]UE [employer] BCBS PA CARE [id number] 2018-Prese [address] [address] Medicaid HMO BLUE SHIELD RESTRICTED PLAN nt [facility] [id number] Advance Directives For more information, please contact: [phone] Latest Code Status on File Code Status [...] Due to: Not medically appropriate Care Teams Stick Feeder Relationship Specialty Start Date End Date Ana Red P.A.-C. PCP - General Internal Medicine 12/01/[address] [place] [address] [place] [phone] [facility] [place] [facility] 08/25/21 Ervin Schroeder MD Referring Provider Family Medicine 03/24/[address] [place] [address]
--- OUTSIDE RECORDS SUMMARY | 2022-02-12 20:19 | XMS_ITS | Encounter Summary ---
:1990 Author Organization [facility] Address [address] [place] [address] Care Team Providers Name Role Phone Ana Red P.A.-C. Primary Care Provider Reason for Visit Reason Comments EGD scheduled for 02/10 Encounter Details Date Type Department Care Team Description 02/09/2022 Clinical Department of Alyssa Arana EGD scheduled for Communication Anesthesiology in S, R.N. 02/10 [place], [place] [address] [facility] [address] [place] [phone] Social History Tobacco Use Types Packs/Day Years [...] How often do you attend pentecostalism or Patient refused 2021 taoist services? 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 - 02/09/2022 8:41 AM CDT Anuj Jerome Christelle is scheduled for an EGD with you tomorrow based on the order placed 12/10 for varices screening. She states she had an EGD in [place] and 6 varices were banded during that procedure (unable to seedocumentation of that procedure, however there is a note from anesthesia dated 01/26 that she did have an EGD on that date). Pt was contacted by this specifications writer to go thru preadmission questions and pt is asking if this EGD is needed since she already had it in [place]. Would you like her to have anotherEGD as scheduled tomorrow? Please advise and I can call the patient back. Thank you Alyssa RN Preoperative Illuminator documented in this encounter Plan of Treatment Upcoming Encounters Date Type Specialty Care Team Description Telemedicine Transplant 2 Appointment Radiology Matthew Jerome 2 YTyrell M.D. [address] [place] [phone] Appointment Gastroenterology demian Silver 2 Hepatology Yue Burciaga M.D. [address] [place] [phone] Virtual Visit Transplant Matthew Jerome 2 YTyrell M.D. [address] [place] [address] [phone] Office Visit Gastroenterology and Matthew Jerome 2 Hepatology Tyrell Rodriguez M.D. [address] [place] [address] [phone] Appointment Radiology Matthew Jerome 2 YTyrell M.D. [address] [place] [address] [phone] Hospital Gastroenterology and [facility] Cirrhos is Alcoholic (HCC) 2 Encounter Hepatology Tyrell Rodriguez M.D. [address] [place] [address] [phone] Anesthesia Event Gastroenterology demian Shine, 2 Hepatology Ervin Burgos M.D. [address] [place] [phone] Surgery Gastroenterology and Mousa, Matthew ESOPHAG OGASTRODUODENOSCOPY 2 Hepatology YTyrell M.D. [address] [place] [phone] Scheduled Procedures Name Priority Associated Diagnoses Date/Time ESOPHAGOGASTRODUODENOSCOPY Cirrhosis Alc oholic (HCC) 03/20/2022 8:45 AM PACKAGING LINE ATTENDANT Hypertension Portal (HCC) documented as of this encounter Visit Diagnoses Not on filedocumented in this encounter Additional Health Concerns Assessment Noted Time PHQ-9 Depression Total Score: 10 10/06/2021 5:00 PM CD T documented as of this encounter Care Teams Recovery Coordinator Relationship Specialty Start Date End Date Ana Red P.A.-C. PCP - General Internal Medicine 12/01/[address] [place] [phone] [facility] [place] lab 08/25/21 Ervin Schroeder MD Referring Provider Family Medicine 03/24/[address] [place] [phone] documented as of this encounter
--- OUTSIDE RECORDS SUMMARY | 2022-02-12 20:19 | XMS_ITS | Encounter Summary ---
:1990 Author Organization [facility] Address [address] [place] [address] Care Team Providers Name Role Phone Ana Red P.A.-C. Primary Care Provider [phone] Reason for Visit Reason Comments Med Refill Encounter Details Date Type Department Care Team Description 02/11/2022 Refill Department of [facility] Ana Red , Med Refill Internal Medicine in P.A.-C. [place], [place] 300 [facility] 300 [place] [address] [place] [address] [phone] Social History Tobacco Use Types Packs/Day Years [...] you attend presybeterian or Patient refused 2021 quaker services? Do you belong to any clubs or No 02/10/2022 organizations such as presybeterian groups, unions, fraiMusicTweet or athletic groups, or school groups? 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 Nurse review: Unable to forward request to provider; Discrepancy: Verification Required. Medication Discontinued. Primary Provider: Ana Red P.A.-C. Pharmacy (include location): documented in this encounter Plan of Treatment Upcoming Encounters Date Type Specialty Care Team Description Telemedicine Transplant 2 Appointment Radiology Matthew Jerome 2 Tyrell Rodriguez M.D. [address] [place] [phone] Appointment Gastroenterology and Adrianne, 2 Hepatology Yue Burciaga M.D. [address] [place] [phone] Virtual Visit Transplant Matthew Jerome 2 Tyrell Rodriguez M.D. [address] [place] [phone] Office Visit Gastroenterology and Queenie Matthew 2 Hepatology Tyrell Rodriguez M.D. [address] [place] [phone] Appointment Radiology Matthew Jerome 2 Tyrell Rodriguez M.D. [address] [place] [phone] Hospital Gastroenterology and Mdchantell Matthew Cirrhos is Alcoholic (HCC) 2 Encounter Hepatology Tyrell Rodriguez M.D. [address] [place] [phone] Anesthesia Event Gastroenterology and Rl, 2 Hepatology Ervin Burgos M.D. [address] [place] [phone] Surgery Gastroenterology and [place] ESOPHAG OGASTRODUODENOSCOPY 2 Hepatology Tyrell Rodriguez, Lilian [address] [place] [phone] Scheduled Procedures Name Priority Associated Diagnoses Date/Time ESOPHAGOGASTRODUODENOSCOPY Cirrhosis Alc oholic (HCC) 03/20/2022 8:45 AM TRADE UNION SECRETARY Hypertension Portal (HCC) documented as of this encounter Visit Diagnoses Not on filedocumented in this encounter Additional Health Concerns Assessment Noted Time PHQ-9 Depression Total Score: 10 10/06/2021 5:00 PM CD T documented as of this encounter Care Teams Buffer Operator Relationship Specialty Start Date End Date Ana Red P.A.-C. PCP - General Internal Medicine 12/01/[address] [place] [phone] [facility]- [place] lab 08/25/21 Ervin Schroeder MD Referring Provider Family Medicine 03/24/[address] [place] [address] documented as of this encounter
--- OUTSIDE RECORDS SUMMARY | 2022-02-12 20:19 | XMS_ITS | Encounter Summary ---
:1990 Author Organization [facility] Address [address] [place] [address] Care Team Providers Name Role Phone Ana Red P.A.-C. Primary Care Provider Reason for Visit Transplant (Routine) - Authorized Specialty Diagnoses / Procedures Referred By Contact Refer red To Contact Transplant Surgery / Matthew Jerome [place] [facility] Transplant M.BSumaBSumaSLilian Moise [address] [place] [phone] Referral ID Status Reason Start Date Expiration Date Visits V isits Requested Authorized [id number] Authorized 10/27/2021 10/27/2022 1 1 Encounter Details Date Type Department Care Team Description 02/10/2022 Virtual Visit Amy Valenzuela M.BSumaB.SSuma, MJules 10[address] [place] [address] [facility]olic Cir[facility]osis [facility] for Rain Reyes R.N. [address] [place] [phone] Of Liver With Transplantation and Ascites (HCC) Clinical Regeneration in [K7 0.31 (ICD-10-CM)] [place], [place] (Primary Dx) [address] [place] [address] Social History Tobacco Use Types Packs/Day [...] you attend religious or Patient refused 2021 mandaen services? 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 - 02/10/2022 2:00 PM CDT Unable to speak with patient as she as in the local ER. Appointment will be rescheduled. documented in this encounter Plan of Treatment Upcoming Encounters Date Type Specialty Care Team Description Telemedicine Transplant 2 Appointment Radiology Matthew Jerome 2 Joshua RodriguezB.B.SSuma, Lilian [address] [place] [phone] Appointment Gastroenterology and Doll, 2 Hepatology Yue Burciaga M.D. [address] [place] [phone] Virtual Visit Transplant Matthew Jerome 2 Jennifer M.B.B.SSuma, Lilian [address] [place] [phone] Office Visit Gastroenterology and Matthew Jerome 2 Hepatology Jennifer M.B.B.SSuma, Lilian [address] [place] [phone] Appointment Radiology Matthew Jerome 2 YJoshuaB.B.SSuma, Lilian [address] [place] [phone] Hospital Gastroenterology and Matthew Jerome Cirrhos is Alcoholic (HCC) 2 Encounter Hepatology Tyrell Rodriguez M.D. [address] [place] [phone] Anesthesia Event Gastroenterology and Rl, 2 Hepatology Ervin Burgos M.D. [address] [place] [phone] Surgery [address] [facility] [place] ESOPHAG OGASTRODUODENOSCOPY 2 Hepatology Tyrell Rodriguez M.D. 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 PCP - General Internal Medicine 12/01/[address] [place] [address] ADI PANIAGUA [phone] [facility]- [place] lab 08/25/21 Ervin Schroeder MD Referring Provider Family Medicine 03/24/[address] [place] [address] ADI Paniagua [phone] documented as of this encounter
--- OUTSIDE RECORDS SUMMARY | 2022-02-12 20:19 | XMS_ITS | Encounter Summary ---
:1990 Author Organization [facility] Address [address] [place] [address] Care Team Providers Name Role Phone Ana Red P.A.-C. Primary Care Provider [phone] Reason for Visit Reason Comments Phone Contact RN and MD follow up Encounter Details Date Type Department Care Team Description 02/04/[address] [facility] Phone Contact (RN Communication Gastroenterology in Y, M.B.B.S., and MD follow up) [facility] 1025 [facility] 1025 [place] [phone] [place] [phone] Social History Tobacco Use Types Packs/Day Years [...] you attend restorationism or Patient refused 2021 synagogue services? Do [...] or the highest technical, or vocational p [facility] degree you have received? 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 Jerome moved up to [place]. When I spoke with patient she stated Dr. Jerome is great but she'd rather see a [place] provider. She says [place] keeps cancelling appts without telling her. Wasn't sure if we were able to schedule with clinic MD and schedule phone screen virtually? Please advise and I will call pt back to confirm appts. Thank you! documented in this encounter Plan of Treatment Upcoming Encounters Date Type Specialty Care Team Description Telemedicine Transplant 2 Appointment Radiology LuisMatthew abdul 2 YTyrell M.D. [address] [place] [phone] Appointment Gastroenterology demian Silver, 2 Hepatology Yue Burciaga M.D. [address] [place] [phone] Virtual Visit Transplant Matthew Jerome 2 YTyrell M.D. [address] [place] [phone] Office Visit Gastroenterology and Matthew Jerome 2 Hepatology Tyrell Rodriguez M.D. [address] [place] [phone] Appointment Radiology LuisMatthew abdul 2 YTyrell M.D. [address] [place] [phone] Hospital Gastroenterology and Matthew Jerome Cirrhos is Alcoholic (HCC) 2 Encounter Hepatology Tyrell Rodriguez M.D. [address] [place] [phone] Anesthesia Event Gastroenterology and Rl, 2 Hepatology Ervin Burgos M.D. [address] [place] [phone] Surgery Gastroenterology and Mousa, Matthew ESOPHAG OGASTRODUODENOSCOPY 2 Hepatology Tyrell Rodriguez M.D. 1025 [place] [phone] Scheduled Procedures Name Priority Associated Diagnoses Date/Time ESOPHAGOGASTRODUODENOSCOPY Cirrhosis Alc oholic (HCC) 03/20/2022 8:45 AM WAREHOUSE ORDER PULLER Hypertension Portal (HCC) documented as of this encounter Visit Diagnoses Not on filedocumented in this encounter Additional Health Concerns Assessment Noted Time PHQ-9 Depression Total Score: 10 10/06/2021 5:00 PM CD T documented as of this encounter Care Teams Securities Trader Relationship Specialty Start Date End Date Ana Red P.A.-C. PCP - General Internal Medicine 12/01/[address] [place] [address] [place] [phone] [facility]- [place] lab 08/25/21 Ervin Schroeder MD Referring Provider Family Medicine 03/24/[address] [place] [address] [place] [address] documented as of this encounter
--- OUTSIDE RECORDS SUMMARY | 2022-02-12 20:19 | XMS_ITS | Encounter Summary ---
:1990 Author Organization [facility] Address [address] [place] [address] Care Team Providers Name Role Phone Ana Red P.A.-C. Primary Care Provider [phone] Reason for Visit Reason Comments Post Hospital Follow-up [facility] Encounter Details Date Type Department Care Team Description 02/04/2022 Clinical Communication Department of [facility] Internal Myrtle Govea Follow-up ([facility] in 2199) [address] [address] [facility] [place] [phone] (Work) [phone] Social History Tobacco Use Types Packs/Day Years [...] How often do you attend faith or Patient refused 2021 presybeterian services? Do you belong to any clubs or No 02/10/2022 organizations such as faith groups, unions, fraYourMechanic or athletic groups, or school groups? How [...] or the highest technical, or vocational p [facility] degree you have received? 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 Patient was dismissed from the [facility] on 02/03/22 at 1808. [facility] Exclusion Criteria: Liver Transplant recipient (actively following with transplant team pre-transplant) documented in this encounter Plan of Treatment Upcoming Encounters Date Type Specialty Care Team Description Telemedicine Transplant 2 Appointment Radiology Matthew Jerome 2 Y, Lilian Santillan [address] [place] [phone] Appointment Gastroenterology and Adrianne, 2 Hepatology Yue Burciaga M.D. [address] [place] [phone] Virtual Visit Transplant Matthew Jerome 2 YTyrell M.D. [address] [place] [phone] Office Visit Gastroenterology and [facility] 2 Hepatology Tyrell Rodriguez M.D. [address] [place] [phone] [facility] 2 YTyrell M.D. [address] [place] [phone]enterology and [facility] Cirrhos is Alcoholic (HCC) 2 Encounter Hepatology Tyrell Rodriguez M.D. [address] [place] [phone] Anesthesia Event Gastroenterology and Rl, 2 Hepatology Ervin Burgos M.D. [address] [place] [phone] [facility] ESOPHAG OGASTRODUODENOSCOPY 2 Hepatology Tyrell Rodriguez M.D. [address] [place] [phone] Scheduled Procedures Name Priority Associated Diagnoses Date/Time ESOPHAGOGASTRODUODENOSCOPY Cirrhosis Alc oholic (HCC) 03/20/2022 8:45 AM FISHER LINE Hypertension Portal (HCC) documented as of this encounter Visit Diagnoses Not on filedocumented in this encounter Additional Health Concerns Assessment Noted Time PHQ-9 Depression Total Score: 10 10/06/2021 5:00 PM CD T documented as of this encounter Care Teams Marine Consultant Relationship Specialty Start Date End Date Ana Red P.A.-C. PCP - General Internal Medicine 12/01/[address] [place] [address] ADI Chau [phone] [facility] [place] lab 08/25/21 Ervin Schroeder MD Referring Provider Family Medicine 03/24/[address] [place] [address] documented as of this encounter
--- OUTSIDE RECORDS SUMMARY | 2022-02-12 20:19 | XMS_ITS | Encounter Summary ---
:1990 Author Organization [facility] Address [address] [place] [address] Care Team Providers Name Role Phone Ana Red P.A.-C. Primary Care Provider [phone] Encounter Details Date Type Department Care Team Description 02/10/2022 Documentation Division of Gastroenterology Elizabeth Bella, in [facility] M.B.B.S. [address] [facility] [address] [place] [address] [place], [place] [phone] Social History Tobacco Use Types Packs/Day Years [...] you attend tenriism or Patient refused 2021 yazidism services? Do [...] highest technical, or vocational p [facility] degree you have received? 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 - 02/10/2022 3:56 AM CDT See encounter documentation documented in this encounter H&P Notes John Bella M.B.B.S. - 02/10/2022 3:56 AM CDT Catia Carias called in to the [facility] with bladder and bowel incontinence over the [...] Radiology Matthew Jerome 2 Tyrell Rodriguez M.D. [address] [place] [phone] Appointment Gastroenterology and Adrianne, 2 Hepatology Yue Burciaga M.D. [address] [place] [phone] Virtual Visit Transplant Matthew Jerome 2 Tyrell Rodriguez M.D. [address] [place] [phone] Office Visit Gastroenterology and Matthew Jerome 2 Hepatology Tyrell Rodriguez M.D. [address] [place] [phone] Appointment Radiology Matthew Jerome 2 Tyrell Rodriguez M.D. [address] [place] [phone] Hospital Gastroenterology and Matthew Jerome Cirrhos is Alcoholic (HCC) 2 Encounter Hepatology Tyrell Rodriguez M.D. [address] [place] [phone] Anesthesia Event Gastroenterology and Rl, 2 Hepatology Ervin Burgos M.D. 10[address] [place] [phone] Surgery Gastroenterology and Mousa, Matthew ESOPHAG OGASTRODUODENOSCOPY 2 Hepatology Tyrell Rodriguez M.D. 1025 [place] [phone] Scheduled Procedures Name Priority Associated Diagnoses Date/Time ESOPHAGOGASTRODUODENOSCOPY Cirrhosis Alc oholic (HCC) 03/20/2022 8:45 AM LAND MANAGEMENT FORESTER Hypertension Portal (HCC) documented as of this encounter Visit Diagnoses Not on filedocumented in this encounter Additional Health Concerns Assessment Noted Time PHQ-9 Depression Total Score: 10 10/06/2021 5:00 PM CD T documented as of this encounter Care Teams Group Leader Semiconductor Testing Relationship Specialty Start Date End Date Ana Red P.A.-C. PCP - General Internal Medicine 12/01/[address] [place] [phone] [facility]- [place] lab 08/25/21 Ervin Schroeder MD Referring Provider Family Medicine 03/24/[address] [place] [address] documented as of this encounter
--- OUTSIDE RECORDS SUMMARY | 2022-02-12 20:19 | XMS_ITS | Encounter Summary ---
:1990 Author Organization [facility] Address [address] [place] [address] Care Team Providers Name Role Phone Ana Red P.A.-C. Primary Care Provider [phone] Reason for Visit Reason Comments Phone Contact Encounter Details Date Type Department Care Team Description 02/10/2022 Clinical Communication Ramirez Marshall, Om ar Y, Phone Contact Center for Lilian Santillan Transplantation and [address] [place] [address] Clinical Regeneration in [place], [place] [address] [address] [facility] [phone] [place], [place] [phone] (Work) [phone] Social History Tobacco Use Types Packs/Day Years [...] you attend amish or Patient refused 2021 confucianist services? Do [...] or the highest technical, or vocational p [facility] degree you have received? 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 Blanca Henson called from [facility]. She did a CT scan of pt and would like to go over the results with someone from pt's care team. Please call back at [phone] Rios. Including Dr. Queenie mcmahan he can contact provider back sooner. Thank you in advance documented in this encounter Plan of Treatment Upcoming Encounters Date Type Specialty Care Team Description Telemedicine Transplant 2 Appointment Radiology Matthew Jerome 2 YTyrell M.D. [address] [place] [phone] Appointment Gastroenterology demian Silver 2 Hepatology Yue Burciaga M.D. [address] [place] [phone] Virtual Visit Transplant Matthew Jerome 2 YTyrell M.D. [address] [place] [phone] Office Visit Gastroenterology and Matthew Jerome 2 Hepatology Tyrell Rodriguez M.D. [address] [place] [phone] Appointment Radiology Matthew Jerome 2 YTyrell M.D. [address] [place] [phone] Hospital Gastroenterology and Matthew Jerome Cirrhos is Alcoholic (HCC) 2 Encounter Hepatology Vik RodriguezBLilian Bedolla [address] [place] [phone] Anesthesia Event Gastroenterology and Rl, [place] Hepatology Ervin Burgos M.D. [address] [place] [phone] Surgery Gastroenterology and Matthew Jerome ESOPHAG OGASTRODUODENOSCOPY 2 Hepatology YTyrell M.D. [address] [place] [phone] Scheduled Procedures Name Priority Associated Diagnoses Date/Time ESOPHAGOGASTRODUODENOSCOPY Cirrhosis Alc oholic (HCC) 03/20/2022 8:45 AM GREASE MAKER Hypertension Portal (HCC) documented as of this encounter Visit Diagnoses Not on filedocumented in this encounter Additional Health Concerns Assessment Noted Time PHQ-9 Depression Total Score: 10 10/06/2021 5:00 PM CD T documented as of this encounter Care Teams Pmo Lead Relationship Specialty Start Date End Date Ana Red P.A.-C. PCP - General Internal Medicine 12/01/[address] [place] [phone] [facility]- [place] lab 08/25/21 Ervin Schroeder MD Referring Provider Family Medicine 03/24/[address] [place] [address] documented as of this encounter
--- OUTSIDE RECORDS SUMMARY | 2022-02-12 20:19 | XMS_ITS | Encounter Summary ---
:1990 Author Organization [facility] Address [address] [place] [address] Care Team Providers Name Role Phone Ana Red VenturaLowell Primary Care Provider [phone] Encounter Details Date Type Department Care Team Description 02/10/2022 Orders Only Department of [facility] Ana Red , Internal Medicine in [place], [place] 300 [facility] 300 [facility] [place] [phone] (Wo rk) Social History Tobacco [...] you attend gnosticist or Patient refused 2021 congregational services? 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 [address] [place] [address] Virtual Visit Transplant Matthew Jerome 2 Y, M.Lilian Hudson [address] [place] [phone] Office Visit Gastroenterology and [facility] 2 Hepatology Tyrell Rodriguez M.D. [address] [place] [phone] Appointment Radiology [facility] 2 Tyrell Rodriguez M.D. [address] [place] [phone] [facility] Gastroenterology and [facility] Cirrhos is Alcoholic (HCC) 2 Encounter Hepatology Tyrell Rodriguez M.D. [address] [place] [phone] Anesthesia Event Gastroenterology and Rl, 2 Hepatology Ervin Burgos M.D. [address] [place] [phone] Surgery Gastroenterology and [facility] ESOPHAG OGASTRODUODENOSCOPY 2 Hepatology Tyrell Rodriguez M.D. [address] [place] [phone] Scheduled Procedures Name Priority Associated Diagnoses Date/Time ESOPHAGOGASTRODUODENOSCOPY Cirrhosis Alc oholic (HCC) 03/20/2022 8:45 AM CRUISE AGENT Hypertension Portal (HCC) documented as of this encounter Visit Diagnoses Not on filedocumented in this encounter Additional Health Concerns Assessment Noted Time PHQ-9 Depression Total Score: 10 10/06/2021 5:00 PM CD T documented as of this encounter Care Teams Naphthalene Still Operator Relationship Specialty Start Date End Date Ana Red P.A.-C. PCP - General Internal Medicine 12/01/[address] [place], [place] [address], [place] [address] [facility] 08/25/21 Ervin Schroeder MD Referring Provider Family Medicine 03/24/[address] [place] [address] ADI Paniagua [phone] documented as of this encounter
--- OUTSIDE RECORDS SUMMARY | 2022-02-12 20:19 | XMS_ITS | Encounter Summary ---
:1990 Author Organization [facility] Address [address] [place] [address] Care Team Providers Name Role Phone Ana Red P.A.-C. Primary Care Provider [phone] Reason for Visit Transplant (Routine) - Closed Specialty Diagnoses / Procedures Referred By Contact Refer red To Contact Transplant Surgery / Adeline Frazier Royer Gannon M.D., Ph.D. [address] [place] [phone] Referral ID Status Reason Start Date Expiration Date Visits Requ ested Visits Authorized [id number] Closed 01/13/2022 01/12/2025 1 1 Encounter Details Date Type Department Care Team Description 02/12/2022 Office Visit [facility] Adeline Oconnor M.D., Ph.D. [address] [place] [phone] for Transplantation and Zenobia Hollingsworth M.A., L.A.D.C. Clinical Regeneration in [place], [place] [address] [place] [phone] Social History Tobacco Use Types Packs/Day [...] How often do you attend alevism or Patient refused 2021 muslim services? 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 [address] [place] [phone] Virtual Visit Transplant Matthew Jerome 2 YJoshuaBSumaBLilian Bedolla [address] [place] [phone] Office Visit Gastroenterology and Matthew Jerome 2 Hepatology Vik RodriguezBLilian Bedolla [address] [place] [phone] Appointment Radiology Queenie Matthew 2 YJoshuaB.BLilian Bedolla [address] [place] [phone] [facility] Gastroenterology and Matthew Jeroem Cirrhos is Alcoholic (HCC) 2 Encounter Hepatology Joshua RodriguezB.BLilian Bedolla [address] [place] [phone] Anesthesia Event Gastroenterology and Rl, 2 Hepatology Ervin Burgos M.D. [address] [place] [phone] Surgery Gastroenterology and Matthew Jerome ESOPHAG OGASTRODUODENOSCOPY 2 Hepatology YJoshuaB.B.Lilian Stockton [address] [place] [phone] Scheduled Procedures Name Priority Associated Diagnoses Date/Time ESOPHAGOGASTRODUODENOSCOPY Cirrhosis Alc oholic (HCC) 03/20/2022 8:45 AM BUSINESS PLANNING MANAGER Hypertension Portal (HCC) documented as of this encounter Visit Diagnoses Not on filedocumented in this encounter Additional Health Concerns Assessment Noted Time PHQ-9 Depression Total Score: 10 10/06/2021 5:00 PM CD T documented as of this encounter Care Teams Church Organist Relationship Specialty Start Date End Date Ana Red P.A.-C. PCP - General Internal Medicine 12/01/[address] [place] [phone] [facility] [place] [facility] 08/25/21 Ervin Schroeder MD Referring Provider Family Medicine 03/24/[address] [place] [address] documented as of this encounter
--- OUTSIDE RECORDS SUMMARY | 2022-02-12 20:19 | XMS_ITS | Encounter Summary ---
:1990 Author Organization [facility] Address [address] [place] [address] Care Team Providers Name Role Phone Ana Red P.A.-C. Primary Care Provider [phone] Reason for Referral Outpatient (Routine) - Authorized Specialty Diagnoses / Procedures Referred By Contact Refer red To Contact [facility] Internal Ana Red [facility] [address] [place] [address] Referral ID Status Reason Start Date Expiration Date Visits V isits Requested Authorized [id number] Authorized 02/11/2022 02/10/2025 1 1 Reason for Visit Reason Comments Post Ed Visit Follow-up Recently found out she has 2 fractures in spine. Concerns about oxycodone use. Appointment Request (Routine) - Closed Specialty Diagnoses / Procedures Referred By Contact Refer brianda To Contact Community Internal Medicine Referral ID Status Reason Start Date Expiration Date Visits Requ ested Visits Authorized [id number] Closed 01/28/2022 01/28/2023 1 1 Encounter Details Date Type Department Care Team Description 02/11/2022 Office Visit Department of [place], Fracture T2 We dge Compression Sequela (Primary Dx); Community Internal Ana, Cirrhosis Alcoholic (HCC); Medicine in P.A.-C. Hypertension Portal (HCC); [place], [place] [address] Thrombocytopenia (HCC); [address] [place] Abnormal Liver Function Test ; [facility] [place] [phone] Hepatic Encephalopathy Without Coma (HCC ) [phone] Social History Tobacco Use Types Packs/Day [...] you attend mormon or Patient refused 2021 gnosticism services? 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 documented as of this encounter Last Filed Vital Signs Vital Sign Reading Time Taken Comments Blood Pressure 131/76 02/11/2022 9:25 AM CDT Pulse 116 02/11/2022 9:25 AM CDT Temperature 36.4 ??C (97.6 ??F) 02/11/2022 9:25 AM CDT Respiratory Rate - - Oxygen Saturation - - Inhaled Oxygen Concentration - - Weight 61 kg (134 lb 7.7 oz) 02/11/2022 9:25 AM CDT Height 157.5 cm (5' 2.01) 02/11/2022 9:25 AM CDT Body Mass Index 24.59 02/11/2022 9:25 AM CDT documented in this encounter Plan of Treatment Upcoming Encounters Date Type Specialty Care Team Description Telemedicine Transplant 2 Appointment Radiology Matthew Jerome 2 YTyrell M.D. [address] [place] [phone] Appointment Gastroenterology and Adrianne, 2 Hepatology Yue Burciaga M.D. [address] [place] [phone] Virtual Visit Transplant Matthew Jerome 2 YTyrell M.D. [address] [place] [phone] Office Visit Gastroenterology and Matthew Jerome 2 Hepatology Tyrell Rodriguez M.D. [address] [place] [phone] Appointment Radiology Luischantell Matthew 2 Tyrell Rodriguez M.D. [address] [place] [phone] Hospital Gastroenterology and Matthew Jerome Cirrhos is Alcoholic (HCC) 2 Encounter Hepatology Tyrell Rodriguez M.D. [address] [place] [phone] Anesthesia Event Gastroenterology and Rl, 2 Hepatology Ervin Burgos M.D. [address] [place] [phone] Surgery Gastroenterology and Matthew Jerome ESOPHAG OGASTRODUODENOSCOPY 2 Hepatology Tyrell Rodriguez M.D. [address] [place] [phone] Scheduled Orders Name Type Priority Associated Diagnoses Order S [facility] Basic Metabolic Panel Lab Routine Cirrhosis Alcoholic (HCC) Expected: 02/12/2022, Hypertension Por meagan (HCC) Expires: 05/14/2023 Thrombocytopenia (HCC) Abnormal Liver Function Test Hepatic Encephalopathy Without Coma (HCC) CBC with Differential, Lab Routine Cirrhosis Alcoholic (HCC) Expected: 02/12/2022, Blood Hypertension Por meagan (HCC) Expires: 05/14/2023 Thrombocytopenia (HCC) Abnormal Liver Function Test Hepatic Encephalopathy Without Coma (HCC) Scheduled Procedures Name Priority Associated Diagnoses Date/Time ESOPHAGOGASTRODUODENOSCOPY Cirrhosis Alc oholic (HCC) 03/20/2022 8:45 AM BANBURY OPERATOR Hypertension Portal (HCC) Scheduled Referrals Name Type Priority Associated Diagnoses Order S [facility] Internal Outpatient Referral Routine Ex pected: Medicine office 02/11/2022 visit (clinic) (Approximate) , Expires: 05/14/2023 documented as of this encounter Visit Diagnoses Diagnosis Cirrhosis Alcoholic (HCC) Fracture T2 Wedge Compression Sequela - Primary Cirrhosis Alcoholic (HCC) Hypertension Portal (HCC) Thrombocytopenia (HCC) Abnormal Liver Function Test Hepatic Encephalopathy Without Coma (HCC ) Cirrhosis Alcoholic (HCC) Hypertension Portal (HCC) documented in this encounter Additional Health Concerns Assessment Noted Time PHQ-9 Depression Total Score: 10 10/06/2021 5:00 PM CD T documented as of this encounter Care Teams Coin Machine Operator Relationship Specialty Start Date End Date Ana Red P.A.-C. PCP - General Internal Medicine 12/01/[address] [place] [phone] [facility] 08/25/21 Ervin Schroeder MD Referring Provider Family Medicine 03/24/[address] [place] [address] documented as of this encounter
--- OUTSIDE RECORDS SUMMARY | 2022-02-12 20:19 | XMS_ITS | Encounter Summary ---
:1990 Author Organization [facility] Address [address] [place] [address] Care Team Providers Name Role Phone Ana Red P.A.-C. Primary Care Provider [phone] Encounter Details Date Type Department Care Team Description 02/09/2022 Clinical Communication Department of [facility] Farida Perez Medicine in [address] [address] [place], [place] [phone] (Work) [phone] Social History Tobacco Use Types Packs/Day Years [...] you attend christianity or Patient refused 2021 taoism services? Do [...] technical, or vocational p [facility] degree you have received? 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 Please call patient back. [phone] Telephone Encounter - Ankita Peña - 02/09/2022 [...] Needed: Please send something to [facility] in [place] for her please Name of Medication (if relevant): what ever you can offer for her nerve pain Please send all scheduling replies to scheduling pool. documented in this encounter Plan of Treatment Upcoming Encounters Date Type Specialty Care Team Description Telemedicine Transplant 2 Appointment Radiology Matthew Jerome 2 YJoshuaB.BGraeme, Lilian [address] [place] [phone] Appointment Gastroenterology and Adrianne, 2 Hepatology Yue Burciaga M.D. [address] [place] [phone] Virtual Visit Transplant Matthew Jerome 2 YJoshuaB.B.Lilian Stockton [address] [place] [phone] Office Visit Gastroenterology and Matthew Jerome 2 Hepatology Joshua RodriguezBSumaBLilian Bedolla [address] [place] [phone] Appointment Radiology LuisNew abdular 2 YJoshuaB.B.Lilian Stockton [address] [place] [phone] [facility] Gastroenterology and Matthew Jerome Cirrhos is Alcoholic (HCC) 2 Encounter Hepatology Joshua RodriguezB.BLilian Bedolla [address] [place] [phone] Anesthesia Event Gastroenterology and Rl, 2 Hepatology Ervin Burgos M.D. [address] [place] [phone] Surgery Gastroenterology and Matthew Jerome ESOPHAG OGASTRODUODENOSCOPY 2 Hepatology Jennifer M.B.B.Lilian Stockton [address] [place] [phone] Scheduled Procedures Name Priority Associated Diagnoses Date/Time ESOPHAGOGASTRODUODENOSCOPY Cirrhosis Alc oholic (HCC) 03/20/2022 8:45 AM VIDEO SURVEILLANCE TECHNICIAN Hypertension Portal (HCC) documented as of this encounter Visit Diagnoses Not on filedocumented in this encounter Additional Health Concerns Assessment Noted Time PHQ-9 Depression Total Score: 10 10/06/2021 5:00 PM CD T documented as of this encounter Care Teams Chief Service Observer Relationship Specialty Start Date End Date Ana Red P.A.-C. PCP - General Internal Medicine 12/01/[address] [place] [phone] [facility]- [place] [facility] 08/25/21 Ervin Schroeder MD Referring Provider Family Medicine 03/24/[address] [place] [address] documented as of this encounter
--- OUTSIDE RECORDS SUMMARY | 2022-02-12 20:19 | XMS_ITS | Encounter Summary ---
:1990 Author Organization [facility] Address [address] [place] [address] Care Team Providers Name Role Phone Ana Red P.A.-C. Primary Care Provider [phone] Reason for Referral Outpatient (Routine) - Pending Review Specialty Diagnoses / Procedures Referred By Contact Refer red To Contact Diagnoses Ascites Chronic Matthew Jerome M.B.B.SSuma, [facility] Procedures US Paracentesis with Imaging Guidance M.DSuma [address] [place] [phone] Referral ID Status Reason Start Date Expiration Date Visits V isits Requested Authorized [id number] Pending 02/08/2022 02/08/2023 1 1 Review Outpatient (Routine) - Pending Review Specialty Diagnoses / Procedures Referred By Contact Refer red To Contact Diagnoses Ascites Chronic Matthew Jerome M.B.BSumaSSuma, [facility] Procedures US Paracentesis with Imaging Guidance M.DSuma [address] [place] [address] 52 Referral ID Status Reason Start Date Expiration Date Visits V isits Requested Authorized [id number] Pending 02/08/2022 02/08/2023 1 1 Review Outpatient (Routine) - Pending Review Specialty Diagnoses / Procedures Referred By Contact Refer red To Contact Diagnoses Ascites Chronic Matthew Jerome M.B.B.S., [facility] Procedures US Paracentesis with Imaging Guidance M.DSuma [address] [place] [address] 52 Referral ID Status Reason Start Date Expiration Date Visits V isits Requested Authorized [id number] Pending 02/08/2022 02/08/2023 1 1 Review Outpatient (Routine) - Pending Review Specialty Diagnoses / Procedures Referred By Contact Refer red To Contact Diagnoses Ascites Chronic Matthew Jerome M.B.B.S., [facility] Procedures US Paracentesis with Imaging Guidance M.DSuma [address] [place] [address] 52 Referral ID Status Reason Start Date Expiration Date Visits V isits Requested Authorized [id number] Pending 02/08/2022 02/08/2023 1 1 Review Outpatient (Routine) - Pending Review Specialty Diagnoses / Procedures Referred By Contact Refer red To Contact Diagnoses Ascites Chronic Matthew Jerome M.B.B.S., [facility] Procedures US Paracentesis with Imaging Guidance M.DSuma [address] [place] [address] 52 Referral ID Status Reason Start Date Expiration Date Visits V isits Requested Authorized [id number] Pending 02/08/2022 02/08/2023 1 1 Review Encounter Details Date Type Department Care Team Description 02/03/2022 Clinical Communication Department of Matthew Jerome, Gastroenterology in [place] [address] [phone] Social History Tobacco Use Types Packs/Day Years [...] you attend taoist or Patient refused 2021 druze services? Do [...] or the highest technical, or vocational p [facility] degree you have received? 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 - 02/06/2022 1:57 PM CDT Cytogenetic Technician called and discussed with the patient that Dr. Jerome felt it was appropriate for her to be seen in March 2022 since she was recently hospitalized and seen in [facility] and that he did not need to follow her the same month as she had been seen in [facility]. Cytogenetic Technician explained that I am unsure why [...] inquired if she should transfer care to [facility] if this is going to continue. Cytogenetic Technician verbalized understanding of her frustration but [...] wants to see in March pt seeing [facility] in January. Cytogenetic Technician stated this to patient and she stated that nobody had called her to tell her the appointment had moved, however, Cytogenetic Technician stated that our scheduling team in [place] does not change appointments without contacting the patient affected. Patient insisted she was never contacted and became very agitated. Cytogenetic Technician stated that a message would be [...] Transplant 2 Appointment Radiology Matthew Jerome 2 YVikBGraeme, Lilian [address] [place] [phone] Appointment Gastroenterology demian Silver 2 Hepatology Yue Burciaga M.D. [address] [place] [phone] Virtual Visit Transplant Matthew Jerome 2 Vik RodriguezBGraeme, Lilian [address] [place] [phone] Office Visit Gastroenterology and Matthew Jerome 2 Hepatology Joshua RodriguezBSumaBLilian Bedolla [address] [place] [phone] Appointment Radiology Matthew Jerome 2 YJoshuaB.B.Lilian Stockton [address] [place] [phone] Hospital Gastroenterology and Queenie Matthew Cirrhos is Alcoholic (HCC) 2 Encounter Hepatology Joshua RodriguezB.B.SLilian Moise [address] [place] [phone] Anesthesia Event Gastroenterology and Rl, 2 Hepatology Ervin Burgos M.D. [address] [place] [phone] Surgery Gastroenterology and Mousa, Matthew ESOPHAG OGASTRODUODENOSCOPY 2 Hepatology Tyrell Rodriguez M.D. 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 PCP - General Internal Medicine 12/01/[address] [place] [address] [place] [phone] [facility]- [place] [facility] 08/25/21 Ervin Schroeder MD Referring Provider Family Medicine 03/24/[address] [place] [address] [place] [address] documented as of this encounter
--- OUTSIDE RECORDS SUMMARY | 2022-02-12 20:19 | XMS_ITS | Encounter Summary ---
:1990 Author Organization [facility] Address [address] [place] [address] Care Team Providers Name Role Phone Ana Red P.A.-C. Primary Care Provider [phone] Encounter Details Date Type Department Care Team Description 02/04/2022 Orders Only RST HIM Sara Gracia R, [address] [place] [phone] [place] [phone] (Wo rk) Social History Tobacco Use Types [...] you attend taoist or Patient refused 2021 baptism services? 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 [address] [place] [phone] Virtual Visit Transplant Matthew Jerome 2 YJoshuaB.B.Lilian Stockton [address] [place] [phone] Office Visit Gastroenterology and [facility] 2 Hepatology Tyrell Rodriguez M.D. [address] [place] [phone] Appointment Radiology [facility] Matthew 2 YTyrell M.D. [address] [place] [phone] Hospital Gastroenterology and [facility] Cirrhos is Alcoholic (HCC) 2 Encounter Hepatology Tyrell Rodriguez M.D. [address] [place] [phone] Anesthesia Event Gastroenterology and Rl, 2 Hepatology Ervin Burgos M.D. [address] [place] [phone] Surgery Gastroenterology and [facility] ESOPHAG OGASTRODUODENOSCOPY 2 Hepatology Tyrell Rodriguez M.D. 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 PCP - General Internal Medicine 12/01/[address] [place] [address] ADI Chua [phone] [facility]- [place] lab 08/25/21 Ervin Schroeder MD Referring Provider Family Medicine 03/24/[address] [place], [place] [phone] documented as of this encounter
--- OUTSIDE RECORDS SUMMARY | 2022-02-12 20:19 | XMS_ITS | Encounter Summary ---
:1990 Author Organization [facility] Address [address] [place] [address] Care Team Providers Name Role Phone Ana Red P.A.-C. Primary Care Provider [phone] Reason for Visit Reason Comments Post Hospital Follow-up Encounter Details Date Type Department Care Team Description 02/10/2022 Clinical Communication Department of [facility] Internal Myrtle Govea Follow-up Medicine in [address] [address] [facility] [place] [phone] (Work) [phone] Social History Tobacco Use Types Packs/Day Years [...] you attend confucianism or Patient refused 2021 pentecostal services? 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 - 02/10/2022 12:08 PM CDT Unable to complete PHFU call. Patient spoke with [facility] this am due to symptoms she was experiencing. Patient was advised to present to the ED. From notes, it appears as though she is currently at [facility]. They were trying to get her transferred to [facility], no beds available, they wereadvised to call again in 24 hours. Telephone Encounter - Xuan Malcolm R.N. - 02/10/2022 7:42 AM CDT Catia Carias is not eligible for the Adult Medical Care Coordination Program and needs the PHFU call to be completed. Patient was dismissed from the [facility] hospital on 02/09/22 at 1652. [facility] Exclusion Criteria: Evaluating for Liver Transplant Pt has PHFU appts on 02/11/22 and 02/13/22- clarify which appointment patient will attend documented in this encounter Plan of Treatment Upcoming Encounters Date Type Specialty Care Team Description Telemedicine Transplant 2 Appointment Radiology Matthew Jerome 2 Tyrell Rodriguez M.D. [address] [place] [phone] Appointment Gastroenterology demian Silver, 2 Hepatology Yue Burciaga M.D. [address] [place] [phone] Virtual Visit Transplant Matthew Jerome 2 Tyrell Rodriguez M.D. [address] [place] [phone] Office Visit Gastroenterology and Matthew Jerome 2 Hepatology Tyrell Rodriguez M.D. [address] [place] [address] [phone] Appointment Radiology Matthew Jerome 2 Tyrell Rodriguez M.D. [address] [place] [phone] Hospital Gastroenterology and Matthew Jerome Cirrhos is Alcoholic (HCC) 2 Encounter Hepatology Tyrell Rodriguez, Lilian [address] [place] [phone] Anesthesia Event Gastroenterology and Rl, 2 Hepatology Ervin Burgos M.D. [address] [place] [phone] Surgery Gastroenterology and Mousa, Matthew ESOPHAG OGASTRODUODENOSCOPY 2 Hepatology Tyrell Rodriguez M.D. 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 PCP - General Internal Medicine 12/01/[address] [place] [phone] [facility]- [place] lab 08/25/21 Ervin Schroeder MD Referring Provider Family Medicine 03/24/[address] [place] [phone] documented as of this encounter
--- OUTSIDE RECORDS SUMMARY | 2022-02-12 20:19 | XMS_ITS | Encounter Summary ---
:1990 Author Organization [facility] Address [address] [place] [address] Care Team Providers Name Role Phone Ana Red P.A.-C. Primary Care Provider [phone] Reason for Referral Outpatient (Routine) - Authorized Specialty Diagnoses / Procedures Referred By Contact Refer red To Contact Diagnoses Alcoholic Cirrhosis Of Liver With Ascites (HCC) Sara Gracia M.D. [address] [place] [address] Referral ID Status Reason Start Date Expiration Date Visits V isits Requested Authorized [id number] Authorized 02/06/2022 02/06/2023 1 1 Outpatient (Routine) - Authorized Specialty Diagnoses / Procedures Referred By Contact Refer red To Contact Diagnoses Chronic Pain Syndrome Hypertension Portal (HCC) Hepatic Failure Unspecified Without Coma (HCC) Alcoholic Cirrhosis Of Liver With Ascites (HCC) Sara Gracia M.D. [address] [place] [address] Referral ID Status Reason Start Date Expiration Date Visits V isits Requested Authorized [id number] Authorized 02/06/2022 02/06/2023 1 1 Outpatient (Routine) - Closed Specialty Diagnoses / Procedures Referred By Contact Refer red To Contact Diagnoses Ascites Chronic Matthew Jerome M.B.B.S., [facility] Procedures US Paracentesis with Imaging Guidance M.DSuma [address] [place] [phone] Referral ID Status Reason Start Date Expiration Date Visits Requ ested Visits Authorized [id number] Closed 11/19/2021 11/19/2022 1 1 Reason for Visit Auth/Cert Specialty Diagnoses / Procedures Referred By Contact Refer red To Contact Diagnoses Ascites Chronic Procedures US PARACENTESIS WITH IMAGING GUIDANCE Hosp OP Referral ID Status Reason Start Date Expiration Date Visits Requ ested Visits Authorized [id number] 1 1 Encounter Details Date Type Department Care Team Description 02/05/2022 Hospital Encounter Department of Matthew Jerome, Chroni c Pain Syndrome (Primary Dx); Radiology, Joshua Reyes Ascites Chronic; Building, in [address] [facility] Hypertension Portal (HCC); [place], [place] Hepatic Failure Unspecified Without Coma (HCC); [address] [phone] Alcoholic Cirrhosis Of Liver With Ascite s (HCC) [place], [place] [phone] (Work) [phone] Social History Tobacco Use Types Packs/Day Years [...] you attend taoism or Patient refused 2021 yarsani services? 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 cyclobenzaprine Take 1 tablet (5 mg 30 tablet 0 02/02/2022 02/11/2022 (FLEXERIL) 5 mg tablet total) by mouth at bedtime as needed for muscle spasms. documented as of this encounter Plan of Treatment Upcoming Encounters Date Type Specialty Care Team Description Telemedicine Transplant 2 Appointment Radiology Matthew Jerome 2 YTyrell, Lilian [address] [place] [phone] Appointment Gastroenterology and Adrianne, 2 Hepatology Yue Burciaga M.D. [address] [place] [phone] Virtual Visit Transplant Matthew Jerome 2 Tyrell Rodriguez M.D. [address] [place] [phone] Office Visit Gastroenterology and Matthew Jerome 2 Hepatology Tyrell Rodriguez M.D. [address] [place] [phone] Appointment Radiology Matthew Jerome 2 YTyrell M.D. [address] [place] [phone] Hospital Gastroenterology and Matthew Jerome Cirrhos is Alcoholic (HCC) 2 Encounter Hepatology Tyrell Rodriguez M.D. [address] [place] [phone] Anesthesia Event Gastroenterology and Rl, 2 Hepatology Ervin Burgos M.D. [address] [place] [phone] Surgery Gastroenterology and Mechantell Matthew ESOPHAG OGASTRODUODENOSCOPY 2 Hepatology Tyrell Rodriguez M.D. 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 CONSULTANT Hypertension Portal (HCC) Scheduled Referrals Name Type Priority Associated Diagnoses Order S chedule [facility] Outpatient Referral Routine Chronic Pain Syndrome Ordered: Health referral Hypertension Portal 02/06 (HCC) Hepatic Failure Unspecified Without Coma (HCC) Alcoholic Cirrhosis Of Liver With Ascites (HCC) Non[facility] Outpatient Referral Routine Alcoholic Cirrhosis Ordered: [...] PROCEDURES Gram Stain (02/05/2022 3:17 PM CDT) [facility] Method Time Signature Gram Stain No organisms [...] Address City/State/ZIP Code Phon e Number [facility] - [address] [place], [place] [address] [facility] [place] [address] [facility] [address] Cell Count and Differential, Body Fluid (02/05/2022 3:17 PM CDT) [employer] Method Time Signature Fluid Type Peritoneal- 02/05/2022 [...] Its performance characteri stics were determined by [facility] in a manner co nsistent with CLIA [...] Address City/State/ZIP Code Phon e Number [facility] - [address] [place], [place] [address] [place] [address] [facility] [address] documented [...] 1613 (New Bag - Provider: Sara Luciano RSumaNSuma)1637 (Stopped - Provider: Catia Portillo R.N.) 25 [...] documented as of this encounter Care Teams Family Court Registrar Relationship Specialty Start Date End Date Ana Red P.A.-C. PCP - General Internal Medicine 12/01/[address] [place] [address] ADI PANIAGUA [phone] [facility]- [place] lab 08/25/21 Ervin Schroeder MD Referring Provider Family Medicine 03/24/[address] [place], [place] [address]th [facility] ADI Paniagua [phone] documented as of this encounter
--- OUTSIDE RECORDS SUMMARY | 2022-02-12 20:20 | XMS_ITS | Encounter Summary ---
:1990 Author Organization [facility] Address [address] [place] [address] Care Team Providers Name Role Phone Ana Red P.A.-C. Primary Care Provider Encounter Details Date Type Department Care Team Description 01/30/2022 Clinical Communication RST Sara Gomez [address] [facility] Lilian Mendez [place], [place] [address] [place] [phone] [place] [phone] Social History Tobacco Use Types Packs/Day Years [...] you attend samaritan or Patient refused 2021 taoism services? Do [...] or the highest technical, or vocational p [facility] degree you have received? 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 - 01/30/2022 9:10 PM CDT Patient called [facility] Medicine 3 team overnight for severe back pain and abdominal pain. She was discharged on 01/29. This pain is usually controlled by Flexeril, which is normally prescribed by her PCP, but the patient was not able to roller picker this medication at her local pharmacy [...] Matthew Jerome 2 Tyrell Rodriguez M.D. [address] [place] [address] [phone] Appointment Gastroenterology demian Silver 2 Hepatology Yue Burciaga M.D. [address] [place] [phone] Virtual Visit Transplant Matthew Jerome 2 Tyrell Rodriguez M.D. [address] [place] [phone] Office Visit Gastroenterology and Matthew Jerome 2 Hepatology Tyrell Rodriguez M.D. [address] [place] [phone] Appointment Radiology Matthew Jerome 2 YTyrell M.D. [address] [place] [phone] Hospital Gastroenterology and Queenie Matthew Cirrhos is Alcoholic (HCC) 2 Encounter Hepatology Vik RodriguezBLilian Bedolla [address] [place] [phone] Anesthesia Event Gastroenterology and Rl, 2 Hepatology Ervin Burgos M.D. [address] [place] [phone] Surgery Gastroenterology and Mousa, Matthew ESOPHAG OGASTRODUODENOSCOPY 2 Hepatology Tyrell Rodriguez M.D. 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 PCP - General Internal Medicine 12/01/[address] [place] [phone] [facility] [place] lab 08/25/21 Ervin Schroeder MD Referring Provider Family Medicine 03/24/[address] [place] [address] documented as of this encounter
--- OUTSIDE RECORDS SUMMARY | 2022-02-12 20:20 | XMS_ITS | Encounter Summary ---
:1990 Author Organization [facility] Address [address] [place] [address] Care Team Providers Name Role Phone Ana Red P.A.-C. Primary Care Provider [phone] Reason for Visit Reason Comments Post Hospital Follow-up Encounter Details Date Type Department Care Team Description 01/30/2022 Clinical Department of [facility] meagan Communication [facility] Internal A, R.N. Follow-up Medicine in [address] [place] [phone] [place] [address] [place], [place] (Work) [phone] Social History Tobacco Use [...] How often do you attend hoahaoism or Patient refused 2021 pentecostal services? Do you belong to any clubs or No 02/10/2022 organizations such as hoahaoism groups, unions, fraternal [...] vocational p [facility] degree you have received? 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 [address] [place] [phone] Virtual Visit Transplant Matthew Jerome 2 Joshua RodriguezBSumaBLilian Bedolla [address] [place] [phone] Office Visit Gastroenterology and Matthew Jerome 2 Hepatology Joshua RodriguezBSumaBLilian Bedolla [address] [place] [phone] Appointment Radiology Matthew Jerome 2 Joshua RodriguezB.BLilian Bedolla [address] [place] [phone] Hospital Gastroenterology and Queenie Matthew Cirrhos is Alcoholic (HCC) 2 Encounter Hepatology Joshua RodriguezBSumaBLilian Bedolla [address] [place] [phone] Anesthesia Event Gastroenterology and Rl, 2 Hepatology Ervin Burgos M.D. [address] [place] [phone] Surgery Gastroenterology and LuischantellMatthew ESOPHAG OGASTRODUODENOSCOPY 2 Hepatology Joshua RodriguezB.BLilian Bedolla [address] [place] [phone] Scheduled Procedures Name Priority Associated Diagnoses Date/Time ESOPHAGOGASTRODUODENOSCOPY Cirrhosis Alc oholic (HCC) 03/20/2022 8:45 AM SUPERINTENDENT JOB Hypertension Portal (HCC) documented as of this encounter Procedures Procedure Name Priority Date/Time Associated Diagnosis Comme nts EXT THINPREP SCREEN Routine 02/28/2014 Results for this procedure are i n the results section . documented in this encounter Results EXT ThinPrep Screen (02/28/2014) [facility] g[facility] Method Time Signature EXT ThinPrep Normal - Normal - See Screen See Scanned Scanned Report for Report for Details Details, HIMS - Report Received and Scanned Comment: See Care Everywhere for Results Specimen (Source) Anatomical Location Collection Method / Collectio n Time Received Time / Laterality Volume Thin Prep Vial 02/28/2014 (Cervix/Endocervi x) Jinny Veliz - 03/05/2014 9:07 AM SUPERINTENDENT JOB Resulting Agency [facility] Specimen Collected: 02/28/14 14:36 Last Resulted: 03/05/14 09:07 Received From: [facility] Result Received: 11/29/18 11:58 Historical Provider LAB PAP PATHDX ORDERABLES documented in this encounter Visit Diagnoses Not on filedocumented in this encounter Additional Health Concerns Assessment Noted Time PHQ-9 Depression Total Score: 10 10/06/2021 5:00 PM CD T documented as of this encounter Care Teams Industrial Controls Technician Relationship Specialty Start Date End Date Ana Red P.A.-C. PCP - General Internal Medicine 12/01/[address] [place] [address] [place] [phone] [facility]- [place] lab 08/25/21 Ervin Schroeder MD Referring Provider Family Medicine 03/24/[address] [place] [address] [place] [address] documented as of this encounter
--- OUTSIDE RECORDS SUMMARY | 2022-02-12 20:20 | XMS_ITS | Encounter Summary ---
:1990 Author Organization [facility] Address [address] [place] [address] Care Team Providers Name Role Phone Ana Red P.A.-C. Primary Care Provider [phone] Encounter Details Date Type Department Care Team Description 01/30/2022 Orders Only RST HIM Sara Gracia R, [address] [place] [phone] [place] [phone] (Wo rk) Social History Tobacco Use Types [...] How often do you attend sabianist or Patient refused 2021 zoroastrian services? 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 [address] [place] [phone] Virtual Visit Transplant Matthew Jerome 2 YJoshuaB.B.Lilian [place] [address] [place] [phone] Office Visit Gastroenterology and [facility] 2 Hepatology Tyrell Rodriguez M.D. [address] [place] [phone] Appointment Radiology [facility] Matthew 2 YTyrell M.D. [address] [place] [phone] Hospital Gastroenterology and [facility] Cirrhos is Alcoholic (HCC) 2 Encounter Hepatology Tyrell Rodriguez M.D. [address] [place] [phone] Anesthesia Event Gastroenterology and Rl, 2 Hepatology Ervin Burgos M.D. [address] [place] [phone] Surgery Gastroenterology and [facility] ESOPHAG OGASTRODUODENOSCOPY 2 Hepatology Tyrell Rodriguez M.D. [address] [place] [phone] Scheduled Procedures Name Priority Associated Diagnoses Date/Time ESOPHAGOGASTRODUODENOSCOPY Cirrhosis Alc oholic (HCC) 03/20/2022 8:45 AM OSD CLERK Hypertension Portal (HCC) documented as of this encounter Visit Diagnoses Not on filedocumented in this encounter Additional Health Concerns Assessment Noted Time PHQ-9 Depression Total Score: 10 10/06/2021 5:00 PM CD T documented as of this encounter Care Teams Svp Digital Sales Relationship Specialty Start Date End Date Ana Red P.A.-C. PCP - General Internal Medicine 12/01/[address] [place] [address] ADI Chua [phone] [facility]- [place] lab 08/25/21 Ervin Schroeder MD Referring Provider Family Medicine 03/24/[address] [place], [place] [phone] documented as of this encounter
--- OUTSIDE RECORDS SUMMARY | 2022-02-12 20:20 | XMS_ITS | Encounter Summary ---
:1990 Author Organization [facility] Address [address] [place] [address] Care Team Providers Name Role Phone Ana Red [facility] Primary Care Provider [phone] Encounter Details Date Type Department Care Team Description 02/02/2022 Orders Only [facility] Ana Red , Internal Medicine in [facility], [place] 300 [facility] 300 [facility] [place] [phone] (Wo rk) Social History Tobacco [...] How often do you attend rastafari or Patient refused 2021 alevism services? 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 [address] [place] [phone] Virtual Visit Transplant Matthew Jerome 2 Y, M.Lilian Hudson [address] [place] [phone] Office Visit Gastroenterology and [facility] 2 Hepatology Tyrell Rodriguez M.D. [address] [place] [phone] Appointment Radiology [facility] 2 Tyrell Rodriguez M.D. 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 [address] [place] [phone] Anesthesia Event Gastroenterology and Rl, 2 Hepatology Ervin Burgos M.D. [address] [place] [phone] Surgery Gastroenterology and [facility] ESOPHAG OGASTRODUODENOSCOPY 2 Hepatology Tyrell Rodriguez M.D. 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 PCP - General Internal Medicine 12/01/[address] [place], [place] [address], [place] [phone] [facility] 08/25/21 Ervin Schroeder MD Referring Provider Family Medicine 03/24/[address] [place] [address] ADI Paniagua [phone] documented as of this encounter
--- OUTSIDE RECORDS SUMMARY | 2022-02-12 20:20 | XMS_ITS | Encounter Summary ---
:[address] [facility] Address [address] [place] [address] Care Team Providers Name Role Phone Ana Red P.A.-C. Primary Care Provider Reason for Visit Reason Comments Altered Mental Status Auth/Cert Specialty Diagnoses / Procedures Referred By Contact Refer red To Contact Diagnoses Pain Flank Procedures OBS Referral ID Status Reason Start Date Expiration Date Visits Requ ested Visits Authorized [id number] 1 1 Encounter Details Date Type Department Care Team Description 02/01/2022 - Emergency [facility] Paty Goldberg P.A.-C. [address] [place] [phone] Pain Flank (Primary Dx); 02/03/2022 [facility] David M, M.D. [address] [place] [phone] Ascites Chronic; [facility], Vj Rodrigez M.B., Ch.B. [address] [place] [phone] Thrombocytopenia (HCC); [facility], Cirrhosi s Alcoholic (HCC); Third Floor Hypertension Portal (HCC); [address] [facility] [place] [phone] Social History Tobacco Use Types Packs/Day Years [...] you attend mosque or Patient refused 2021 jew services? 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 Primary Team: [facility] Medicine 3 ([facility]) Primary Care Providers: Ana Red P.A.-C. (General) [address] [place] [phone] Primary Care Provider Primary Care Provider Other [...] P.A.-C. Community Internal Medicine 02/05/2022 3:[address] [facility] 02 01 Radiology 02/10/2022 3:00 PM TXP PSYCHIATRY 01 [facility] Transplant 02/12/2022 9:20 AM LAB BLOOD [facility] Laboratory Medicine 02/12/2022 9:30 AM LAB URINE CONTAINER [facility] Laboratory Medicine 02/12/2022 11:00 AM TXP COUNSELOR 01 [facility] Transplant 02/18/2022 3:[address] [facility] 02 Radiology 03/02/2022 10:00 AM RM 450 [facility] Gastroenterology and Hepatology 03/04/2022 9:30 AM Matthew Jerome M.B.B.S., M.D. Gastroenterology and Hepatology 03/05/2022 3:15 PM [place] [address] Radiology For appointment details refer to your [...] AM CDT You were discharged from the [facility] Medicine 3 ([facility]) Service. Please identify this service name [...] muscle spasms. documented as of this encounter Progress Notes [...] multivitamin per CPA. Evon Rodriguez Pharm.D., R.Ph. [phone] Sara Gracia M.D. - 02/02/2022 6:04 AM CDT T Medicine 3 ([facility]) PROGRESS NOTE SUBJECTIVE Ms. Carias is a [...] is hospitalized on [facility] 3 ([facility]) for evaluation and management of Hepatic Failure [...] (not met): Pain control Plan discussed with [facility] Medicine 3 ([facility]) Data Recovery Planner, JEAN CARLOS [facility] who was present during judd portions of the evaluation today. Please page the [facility] Medicine 3 ([facility]) service pager at [phone] with any questions. documented in this encounter [...] Failure Renal Acute (Acute Kidney Injury) (HCC) Vik Sotelo, B., [facility], FACMG, FACP Data Recovery Planner Hospitalist Yue Silver M.D. - 02/01/2022 5:13 PM CDT [facility] Medicine 3 ([facility]) Admission Note SUBJECTIVE CHIEF COMPLAINT Ms. Carias [...] She also said she was going to [facility] to meet her doctor. She is not [...] by refractory ascites, who is hospitalized on [place] [address] ([facility]) for evaluation and management of Pain Flank. [...] this encounter Consult Notes Evi Dickson M.S.N., MSumaHSumaA., R.N. - 02/02/2022 2:29 PM CDTAssociated Order(s): IP CONSULT TO CARE MANAGEMENT Discharge Planning Assessment SUBJECTIVE Assessment Information Referral Source: Nurse Referral Name: Karyn De La Rosaolmanluzma Referral Reason: Discharge Planning Previous assessment done on: 12/28/21 Previous assessment done by: Harlan Monterroso Primary Language: Occitan [employer] Used: No Person(s) present during interview: [...] Support System: Boyfriend Lobito Finance/Insurance Primary insurance: [facility] [place] Secondary insurance: N/A Does [...] Communication: Can write, Talks, Understands speaking, Understands Occitan, Reads Shopping: Needs assistance Transportation: Support from family Medication Management: Dependent Housekeeping: Dependent Meal Prep: Dependent Managing Finances: Independent Assistive Devices: Cane, Cellphone, Commode, Medication box, Handrails for stairs, Walker - front wheeled Services/Resources: Home health Agency Name: [facility] Services Provided: Medication Baseline Services/Resources Primary care clinic and provider: Ana Red P.A.-C. Services/Resources: Home health Additional Resources: Anticipated Needs Functional Status: None Assistive Devices: Emergency call system, Walker - four wheeled, Tub/shower chair/bench Agency Name: [facility] Services Provided: Medication Anticipated Modifications to the Patient's Home: None Transportation Needs: Support from family Does the patient need discharge transport arranged?: No Phone Number for Ride/Caregiver: [phone] Gonzalo Anticipated Discharge Destination: Home or Self Care ASSESSMENT / PLAN Assessment: The feather maker met with Catia Carias to discuss her current hospitalization and home goingneeds. The patient was unaccompanied. The patient was a reliable historian. The role of feather maker was reviewed. The patient reviewed her prior level of care and support system. The patient receives support from her Boyfriennaveen Robin . Miss. Carias lives with her boyfriend [...] Lobito with some assistance from the patient. feather maker discussed the patient's potential needs at dismissal based on their home setting, previous needs and responsibilities, homebound status, and relevant assessments with the patient. The patient will be safe and supported to return home with raymundofroylan Robin . when medically ready. Support will be provided by Ariadna Robin . The patient demonstrated understanding when discussing her home going plans and anticipated needs. Home Health Reconnect was completed with [facility] Nurse Misbah Crook. At this time, the care team has not identified any skilled post-hospital discharge care needs that require the assistance of the Care Management Team. After reviewing the patient's chart and meeting with the patient, the feather maker deemed the LACE+/readmission questions were not necessary. [...] will be provided by family--Boyfriend Lobito . feather maker recommended a shower seat. feather maker provided information regarding the dismissal process. feather maker placed or requested the following hospital-based consult orders and/or referrals: None. feather maker will continue to assess for homegoing needs with the interdisciplinary team. feather maker encouraged the patient to reach out with any questions/concerns. Care Management will continue to follow. Signed by: Destiny Aden, JoshuaHMyrtle Whitehead 02/02/2022 documented in this encounter Nursing Notes [...] reviewed with patient and her significant other Loibto. They brought up concerns about insurance covering her flexeril, as this led to her readmission, as well as an interest in establishingcare regarding her potential future transplant [place]. These concerns were brought up to her [...] R.N. 02/03/22 5:10 AM CDT Harish Bruce R.N. - 02/02/2022 5:50 AM CDT Problem: PAIN [...] Matthew Jerome 2 Tyrell Rodriguez M.D. [address] [place] [phone] Appointment Gastroenterology and Adrianne, 2 Hepatdina Burciaga M.D. [address] [place] [phone] Virtual Visit Transplant Matthew Jerome 2, M.B.B.S., M.D. [address] [place] [phone] Office Visit GastroenterMatthew Lewis 2 Hepatology Tyrell Rodriguez M.D. [address] [place] [phone] Appointment Radiology Matthew Jerome 2 YTyrell M.D. [address] [place] [address], [place] [phone] Hospital Gastroenterology and [facility] Cirrhos is Alcoholic (HCC) 2 Encounter Hepatology Tyrell Rodriguez M.D. [address] [place] [phone] Anesthesia Event Gastroenterology and Rl, 2 Hepatology Ervin Burgos M.D. [address] [place] [phone] Surgery Gastroenterology and [facility] ESOPHAG OGASTRODUODENOSCOPY 2 Hepatology Tyrell Rodriguez M.D. [address] [place] [phone] Scheduled Orders Name Type Priority Associated Diagnoses Order S chedule Bacterial Culture, Microbiology STAT STAT for 1 Occurrences Aerobic + Susc, starting 06/2021 Urine until 2 Gram Stain Microbiology STAT STAT for 1 Occu rrences starting 2021 until 2 Scheduled Procedures Name Priority Associated Diagnoses Date/Time ESOPHAGOGASTRODUODENOSCOPY Cirrhosis Alc oholic (HCC) 03/20/2022 8:45 AM GERIATRIC PHYSICIAN Hypertension Portal (HCC) documented as of this [...] section. BACTERIA / RAUDEL STAT 02/01/2022 10:34 Resul ts for this [...] Impressions 02/02/2022 9:53 AM CDT Ultrasound-guided paracentesis. BILINGUAL SPEECH THERAPIST Narrative 02/02/2022 9:53 AM CDT EXAM: US [...] met. POST-PROCEDURE DIAGNOSIS: Ascites. IMPRESSION: Ultrasound-guided paracentesis. BILINGUAL SPEECH THERAPIST Yue Silver M.D. IMG US PROCEDURES Gram Stain (02/02/2022 8:54 AM CDT) [facility] Method Time Signature Gram Stain No organisms 02/02/2022 DTL seen. 12:55 PM CDT Specimen Anatomical Collection Method Collection Time Receive d Time (Source) Location / / Volume Laterality Fluid 02/02/2022 8:54 AM 2 (Peritoneal CDT 10:20 AM CDT Fluid) Comment: Specimen Source Site: Fluid Matthew Santillan M.D. LAB MICROBIOLOGY - GENERAL ORDERABLES Performing Organization Address City/State/ZIP Code Phon e Number [facility] - 200 [place], [place] [address] [facility] [place] [address] [facility] [address] Cell Count and Differential, Body Fluid (02/02/2022 8:54 AM CDT) [facility] gist Method Time Signature Fluid Type [...] performance characteri stics were determined by [facility] in a manner co nsistent [...] FLUIDS AND STOOLS ORDERABLES Performing Organization Address [facility] Phon e Number [facility] - 200 [place], [place] [address] [facility] [place] [address] Laboratories[address] CK (Creatine Kinase) (02/02/2022 6:14 AM CDT) P athologist Signature Creatine Kinase 29 26 - 192 02/02/2022 DTL (CK), S U/L 7:44 AM CDT Specimen Anatomical Collection Method Collection Time Receive d Time (Source) Location / / Volume Laterality Blood (Blood, 02/02/2022 6:14 AM 02/03/20 7:21 Venous) CDT AM CDT Darrick Santillan LAB BLOOD ADD-ON Performing Organization Address City/[facility] Phon e Number [facility] - 200 [place], [place] [address] [facility] [place] [place] [address] (ABNORMAL) Prothrombin Time (PT) (02/02/2022 6:14 AM CDT) Patholo gist Method Time Signature Prothrombin 35.3 (H) 9.4 [...] 02/03/20 22 7:00 Venous) CDT AM CDT Jwan A Naser M.B.B.S. LAB BLOOD ADD-ON Performing Organization Address City/State/ZIP Code Phon e Number [facility] - 200 [place], [place] [address] [facility] [place] [address] [facility] 200 [facility] (ABNORMAL) CBC with Differential, Blood (02/02/2022 6:14 AM CDT) [facility] Method Time Signature Hemoglobin 7.3 (L) [...] LAB BLOOD ADD-ON Performing Organization Address City/[facility]/ZIP Code Phon e Number [facility] - [address] [place] [address] [facility] 200 [facility] (ABNORMAL) Basic Metabolic Panel (02/02/2022 6:14 [...] 02/03/20 22 7:21 Venous) CDT AM CDT Yue Silver M.D. LAB BLOOD ADD-ON Performing Organization Address City/State/ZIP Code Phon e Number [facility] - 200 [place] [address] [address] [place] [address] [facility] [address] Abdomen Pelvis with IV Contrast (02/01/2022 [...] anasarca. 3. Malpositioned IUD.. Paty Goldberg P.A.-C. IMTristan CT PROCEDURES CT Chest Angiogram and Pulmonary [...] Dipstick, POCT, Urine (02/01/2022 1:42 PM CDT) [facility] Time Signature Glucose, 100 (A) Negative 02/01/2022 [facility]ED POCT, U mg/dL 1:44 PM CDT Ketone, POCT, Trace (A) Negative 02/01/2022 [facility] U mg/dL 1:44 PM CDT Specific 1.020 1.005 - 02/01/2022 [facility]ED Byron, 1.030 1:44 PM CDT POCT, U Blood, [...] / Volume Laterality Urine 02/01/2022 1:42 PM 1:45 CDT PM CDT Unknown Provider LAB POCT ORDERABLES - DEVICE Performing Organization Address City/State/ZIP Code Phon e Number POC [facility] [address] [place] [address] [facility] [place] [address] [facility] [address] (ABNORMAL) Dipstick, Urine (02/01/2022 1:37 PM CDT) [email or web address] Method Time Signature Hemoglobin, Negative Negative 02/01/2022 [...] 1:37 PM 2 2:09 CDT PM CDT Payt Goldberg P.A.-C. LAB URINE ORDERABLES Performing Organization Address City/[facility]/ZIP [facility] Phon e Number [facility] - 200 [place], [place] [address] [facility] [address] Osmolality, Urine (02/01/2022 1:37 PM CDT) P athologist Signature Osmolality, U [address] - 1150 02/01/2022 DTL mOsm/kg 8:41 PM CDT Specimen Anatomical Collection Method Collection Time Receive d Time (Source) Location / / Volume Laterality Urine 02/01/2022 1:37 PM 2 2:09 CDT PM CDT Paty Goldberg P.A.-C. LAB URINE ORDERABLES Performing Organization Address City/[facility]/ZIP Code Phon e Number [facility] - 200 [place], [place] [address] [facility] [place] [place] [address] pH, Random, Urine (02/01/2022 1:37 PM CDT) P athologist Signature pH, Random, U 5.9 4.5 - 8.0 02/01/2022 DTL 8:41 PM CDT Specimen Anatomical Collection Method Collection Time Receive d Time (Source) Location / / Volume Laterality Urine 02/01/2022 1:37 PM 2 2:09 CDT PM CDT Paty Goldberg P.A.-C. LAB URINE ORDERABLES Performing Organization Address City/State/ZIP Code Phon e Number [facility] - [address] [place], [place] [address] [facility] [place] [address] (ABNORMAL) Microscopic Manual (02/01/2022 1:37 PM CDT) P athologist Signature Microscopy Abnormal 02/01/2022 DTL [...] LAB URINE ORDERABLES Performing Organization Address City/[facility]/ZIP Code Phon e Number [facility] - 200 [place], [place] [address] [place] [address] [place] [address] (ABNORMAL) Gram Stain, Urine (02/01/2022 1:37 PM CDT) Patholo gist [...] Organization Address City/State/ZIP Code Phon e Number [facility] - [address] [place], [place] [address] [facility] [place] [address] (ABNORMAL) Urinalysis with Microscopic: Urine, Midstream (02/01/2022 1:37 PM CDT) Patholo gist Method [...] LAB URINE ORDERABLES Performing Organization Address City/[facility] Phon e Number [facility] - [address] Lactate (02/01/2022 1:32 PM CDT) P athologist Signature Lactate, P 1.6 0.5 - 2.2 02/01/2022 ST[facility] mmol/L 1:50 PM CDT Specimen Anatomical Collection Method Collection Time Receive d Time (Source) Location / / Volume Laterality Blood (Blood, 02/01/2022 1:32 PM 02/02/20 1:37 Venous) CDT PM CDT Paty Goldberg P.A.-C. LAB BLOOD NON ADD-ON Performing Organization Address City/State/ZIP [facility] Phon e Number [facility] - [address] [place], [place] [address] [facility] STMA [place] [address] [address] [facility] DX Chest AP or PA and [...] Blood # 2 (02/01/2022 10:47 AM CDT) [facility] Method Time Signature Bacteria/Adriana [...] Organization Address City/State/ZIP Code Phon e Number [facility] - [address] [place], [place] [address] [facility] [place] [address] Laboratories-[address] Lactate, POCT (02/01/2022 10:36 AM CDT) Analysis Performed At Patho logist Time Signature Lactate, POCT Collected DEFAULT 02/01/2022 SMLX 10:36 AM CDT Specimen Anatomical Collection Method Collection Time Receive d Time (Source) Location / / Volume Laterality Blood (Blood, 02/01/2022 10:36 02/01/2022 Venous) AM CDT 10:36 AM CDT Paty Goldberg P.A.-C. LAB POCT ORDERABLES - DEVICE Performing Organization Address City/[facility]/ZIP Code Phon e Number [facility] - 200 [place], [place] [address] [facility] [place] [address] Laboratories-[address] Venous Blood Gas and Electrolytes CG8+, [...] ORDERABLES - DEVICE Performing Organization Address City/[facility]/ZIP Code Phon e Number [facility] - 200 [place], [place] [address] [place] [address] [facility]-[address] Bacteria / Raudel Culture, Blood #1 (02/01/2022 [...] GENERAL O RDERABLES Performing Organization Address City/[facility] Phon e Number [facility] - [address] (ABNORMAL) Hepatic Function Panel (02/01/2022 10:34 AM CDT) [email or web address] Method Time Signature Bilirubin, Total, S 10.7 [...] LAB BLOOD ADD-ON Performing Organization Address City/[facility] Phon e Number [facility] - [address] (ABNORMAL) CBC with Differential, Blood (02/01/2022 10:34 AM CDT) [facility] Method Time Signature Hemoglobin 7.9 (L) [...] Organization Address City/State/ZIP Code Phon e Number [facility] - [address] [place], [place] [address] [place] [address] [facility] 200 [facility] (ABNORMAL) Basic Metabolic Panel (02/01/2022 10:34 [...] (Blood Urea 7 6 - 21 02/01/2022 [facility] N[facility]), P mg/dL 11:11 AM CDT Creatinine [...] - 140 mg/dL 02/01/2022 11:11 AM CDT [facility] Specimen Anatomical Collection Method Collection Time Receive d Time (Source) Location / / Volume Laterality Blood (Blood, 02/01/2022 10:34 02/01/2022 Venous) AM CDT 10:53 AM CDT Paty Goldberg P.A.-C. LAB BLOOD ADD-ON Performing Organization Address City/State/ZIP Code Phon e Number [facility] - [address] [place] [address] [place] [address] [facility]-[address] (ABNORMAL) Ammonia (02/01/2022 10:34 AM CDT) athologist Signature Ammonia, P 68 (H) <=30 02/01/2022 DTL mcmol/L 11:32 AM CDT Specimen Anatomical Collection Method Collection Time Receive d Time (Source) Location / / Volume Laterality Blood (Blood, 02/01/2022 10:34 02/01/2022 Venous) AM CDT 10:59 AM CDT Paty Goldberg P.A.-C. LAB BLOOD NON ADD-ON Performing Organization Address City/[facility]/ZIP [facility] Phon e Number [facility] - 200 [place], [place] [address] [facility] [place] [place] [address] [facility] 200 [facility] Lactate, POCT (02/01/2022 10:31 AM CDT) [...] POCT ORDERABLES - DEVICE Performing Organization Address [facility] Phon e Number [facility] 200 [place] [address] [place] [address] [facility] 200 [facility] (ABNORMAL) Venous Blood Gas and Electrolytes CG8+, POCT (02/01/2022 10:31 AM CDT) athologist Signature Sample Site, Venstick 02/01/2022 PCSM [...] B 44 Not Applicable mm Hg 02/02/20 22 10:55 AM CDT PCSM Comment: ----ADDITIONAL INFORMATION---- [...] City/State/ZIP Code Phon e Number POC [facility] INPATIENT [address] [place], [place] [address] [facility] [place] [address] [place] [facility] [address] [place] [address] ECG 12 Lead (02/01/2022 10:22 AM CDT) P athologist Signature Ventricular Rate 91 BPM MUSE ECG/Min CO Interval 152 ms MUSE QRSD Interval 86 ms MUSE QT Interval 398 ms MUSE QTC Interval 489 ms MUSE P Weare -3 degrees MUSE R Weare 16 degrees MUSE T Wave Weare 5 degrees MUSE Specimen Anatomical Collection Method [...] Administer the 25% solution at 100 mL/hr xtukxuiguvnwh-pkqppgvwuu-qapguoka in Lipoderm Given 02/03/2022 8 :54 AM [...] 1,000 mcg, oral, Daily, First dose on 02/02/22 at 0900 Given 02/02/2022 10:26 AM CDT [...] Given 02/02/2022 6:25 AM CDT 400 mg sgwwmhgiphrf-gnfm-JT-Ca-minerals 400 mcg Given 02/03/2022 8:55 A M [...] human 25 % injection 25 g (COMPLETED) 8602 (New Bag - Provider: Nabila Traore R.N.) 25 g, intravenous, Once, On Wed02/02/22 at 1100, For 1 dose, If no infusion rate specified: Administer the 25% solution at 100 mL/hr lomcvxuirlhlz-xzvguwtuly-jqdkmnvy in Lipoderm 2%-5%-5% cream 1 g 2039 (Given - Provider: Elena Worthington R.N.) 1051 (Not Given - Provider: Nabila perry R.N. - Reason: Patient/family refused)2056 (Given - Provider: Cirselda Marley R.N.) 0854 (Given - Provider: Suleman Rivas R.N.) 1 g, topical, 2 times daily, First dose on Wed02/01/22 at 2100 cholecalciferol (vitamin D3) tablet 25 mcg 1026 (Given - Provider: Nabila Traore R.N.) 0855 (Given - Provider: Suleman Rivas R.N.) 25 mcg, oral, Daily, First dose on Wed at 0900, cholecalciferol (vitamin D3) orderable was interchanged for cholecalciferol (vitamin D3) tablet/capsule ciprofloxacin tablet 500 mg (CIPRO) 0624 (Given - Provider: Harish Massey RGabby) 0855 (Given - Provider: Suleman Rivas [...] Provider: Nabila Traore R.N. - Reason: Patient/family refused)171 (Not Given - Provider: Nabila Traore R.N. [...] at 0900 heparin (porcine) injection 5,000 Units 2112 (Not Give n - Provider: Elena Worthington R.N. - Reason: Patient/family refused) 0625 (Given - Provider: Harish Massey RSumaNSuma)1345 (Not Given - Provider: Nabila Traore R.N. - Reason: Other - Comment: paracentesis this am)2057 (Given - Provider: Criselda Marley R.N.) 0525 (Not Given - Provider: Criselda mejia RSumaNSuma - Reason: Patient/family refused)1324 (Not Given - Provider: Nabila Traore R.N. - Reason: Patient/family refused) 5,000 Units, subcutaneous, Every 8 hours scheduled, First dose on 02/01/22 at 2200 lactulose solution 10 g (CHRONULAC) 2038 (Given - Prov ider: Elena Worthington R.N.) 1031 (Given - Provider: Nabila arauz R.N.)1148 (Given - Provider: Nabila Traore R.N.)1712 (Not Given - Provider: Nabila Traore R.N. - Reason: Order parameters not met) 0854 (Given - Provider: Suleman Rivas R.N.)1253 (Given - Provider: Nabila Traore R.N.)1614 (Not Given - Provider: Nabila Traore R.N. - Reason: Order parameters not met - Comment: bm goal achieved) 10 g, oral, 4 times daily, First dose (a fter last modification) on 02/01/22 at 2100 2056 (Not Given - Provider: [...] dinner, First dose on Wed02/02/22 at 0700 vgpxgddqvtyj-htmr-DL-Ca-minerals 400 mcg (folic acid) tablet 1 tablet (THERAPEUTIC-M) 1025 (Given - Provider: Nabila arauz R.N.) 0855 (Given - Provider: Suleman Rivas R.N.) 1 tablet, oral, Daily, First dose on Wed02/02/22 at 0900 ondansetron (PF) injection 4 mg (ZOFRAN) (COMPLETED) 2 214 (Given - Provider: lEena Worthington R.N.) 4 mg, intravenous, Once, On 02/01/22 at 2215, For 1 dose oxyCODONE IR tablet 5 mg (ROXICODONE) (COMPLETED) 2355 (Given - Provider: Harish Massey R.N.) 5 mg, oral, Once, On Wed02/01/22 at [...] R.N.) 1025 (Given - Provider: Nabila Traore R.N.)5 (Given - Provider: Criselda Marley R.N.) 0855 [...] Worthington R.N.) 50 mg, oral, Once, On Wed02/01/22 at [...] bedtime, First dose on Wed02/01/22 at 2100 vitamin A capsule 3,000 mcg [...] 02/02/2022 02/03/2022 acetaminophen tablet 500 mg (TYLENOL) 1831 (Given - Pr ovider: Mel Teresa RSumaNSuma) 0052 (Given - Provider: Harish Massey RSumaNSuma)1026 [...] mcg (SUBLIMAZE) (COMPLETED) 1125 (Given - Provider: Andrew RoachN.)1251 (Given - Provider: Ciara K Cathy, R.N.)1335 (Given - Provider: Ciara Morgan, RSuamNSuma) 50 mcg, intravenous, Every 15 min PRN, s evere pain or score 7-10 of 10, Starting on 02/01/22 at 1114, For 3 doses fentaNYL injection 50 mcg (SUBLIMAZE) (CANCELED) 1553 (Given - Provider: Andrew RoachNSuma) 50 mcg, intravenous, Every 15 min PRN, s evere pain or score 7-10 of 10, Starting on 02/01/22 at 1448, For 3 doses iohexoL 350 mg iodine/mL solution 1-200 mL (OMNIPAQUE) (COMPLETED) 1429 (Given - Provider: David Johnston R.N.) 1-200 mL, intravenous, Once in imaging, contrast, Starting on 02/01/22 at 1425, For 1 dose, Imaging Protocol Orders, Dose per Radiant Medication Guidelines lidocaine 10 mg/mL (1 %) injection (XYLOCAINE) (COMPLETED) 0906 (Given - Provider: Marialuisa Boogie M.D. - Comment: abdominal right) Code/trauma/sedation medication, Starting on 02/02/22 at 0906 prochlorperazine tablet 5 mg (COMPAZINE) 1357 (Given - Provider: Nabila Traore RSumaNSuma) 0907 (Given - Provider: Suleman Rivas R.N.) 5 mg, oral, Every 6 hours PRN, nausea, v omiting, Starting on 02/02/22 at 1255 documented in this encounter Additional Health Concerns Assessment Noted Time PHQ-9 Depression Total Score: 10 10/06/2021 5:00 PM CD T documented as of this encounter Care Teams Loom Mechanic Relationship Specialty Start Date End Date Ana Red P.A.-C. PCP - General Internal Medicine 12/01/[address] [place] [address] ADI PANIAGUA [phone] [facility]- [place] lab 08/25/21 Ervin Schroeder MD Referring Provider Family Medicine 03/24/[address] [place] [address] ADI Paniagua [id number] documented as of this encounter
--- OUTSIDE RECORDS SUMMARY | 2022-02-12 20:20 | XMS_ITS | Encounter Summary ---
:1990 Author Organization [facility] Address [address] [place] [address] Care Team Providers Name Role Phone Ana Red P.A.-C. Primary Care Provider [phone] Encounter Details Date Type Department Care Team Description 01/29/2022 Orders Only Pharmacy Prior Auth Genaro Biggs [phone] Social History Tobacco Use Types Packs/Day Years [...] you attend synagogue or Patient refused 2021 zoroastrian services? 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 [address] [place] [phone] Virtual Visit Transplant Matthew Jerome 2 Tyrell Rodrgiuez M.D. [address] [place] [phone] Office Visit Gastroenterology and Matthew Jerome 2 Hepatology Tyrell Rodriguez M.D. [address] [place] [phone] Appointment Radiology Queenie Matthew 2 YTyrell M.D. [address] [place] [phone] [facility] Cirrhos is Alcoholic (HCC) 2 Encounter Hepatology Tyrell Rodriguez M.D. [address] [place] [phone] Anesthesia Event Gastroenterology and [facility], 2 Hepatology Ervin Burgos M.D. [address] [place] [phone] [facility] G[facility] ESOPHAG OGASTRODUODENOSCOPY 2 Hepatology Tyrell Rodriguez M.D. [address] [place] [phone] Scheduled Procedures Name Priority Associated Diagnoses Date/Time ESOPHAGOGASTRODUODENOSCOPY Cirrhosis Alc oholic (HCC) 03/20/2022 8:45 AM PATHOLOGY TECH Hypertension Portal (HCC) documented as of this encounter Visit Diagnoses Not on filedocumented in this encounter Additional Health Concerns Assessment Noted Time PHQ-9 Depression Total Score: 10 10/06/2021 5:00 PM CD T documented as of this encounter Care Teams Warehouse Order Puller Relationship Specialty Start Date End Date Ana Red P.A.-C. PCP - General Internal Medicine 12/01/[address] [place] [address] Santiluzma HERMOSILLOADI WRIGHT [phone] [facility]- [facility] 08/25/21 Ervin Schroeder MD Referring Provider Family Medicine 03/24/[address] [place] [address] documented as of this encounter
--- OUTSIDE RECORDS SUMMARY | 2022-02-12 20:20 | XMS_ITS | Encounter Summary ---
:1990 Author Organization [facility] Address [address] [place] [address] Care Team Providers Name Role Phone Ana Red P.A.-C. Primary Care Provider [phone] Reason for Visit Reason Comments Post Hospital Follow-up Encounter Details Date Type Department Care Team Description 01/30/2022 Clinical Communication Department of [facility] Family Medicine, J, R.N. Follow-up [facility] [place], in [facility] ([address] [phone] Social History Tobacco Use Types [...] you attend jainism or Patient refused 2021 congregational services? 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 [address] [place] [address] Virtual Visit Transplant Matthew Jerome 2 Tyrell Rodriguez M.D. [address] [place] [phone] Office Visit Gastroenterology and Matthew Jerome 2 Hepatology Tyrell Rodriguez M.D. [address] [place] [phone] Appointment Radiology LuisMatthew abdul 2 Joshua RodriguezBLilian Staples [address] [place] [phone] Hospital Gastroenterology and Matthew Jerome Cirrhos is Alcoholic (HCC) 2 Encounter Hepatology Joshua RodriguezBLilian Staples [address] [place] [phone] Anesthesia Event Gastroenterology and Rl, 2 Hepatology Ervin Burgos M.D. [address] [place] [phone] Surgery Gastroenterology and Matthew Jerome ESOPHAG OGASTRODUODENOSCOPY 2 Hepatology Joshua RodriguezB.BGraeme, Lilian [address] [place] [phone] Scheduled Procedures Name Priority Associated Diagnoses Date/Time ESOPHAGOGASTRODUODENOSCOPY Cirrhosis Alc oholic (HCC) 03/20/2022 8:45 AM FIRE ENGINEER Hypertension Portal (HCC) documented as of this encounter Visit Diagnoses Not on filedocumented in this encounter Additional Health Concerns Assessment Noted Time PHQ-9 Depression Total Score: 10 10/06/2021 5:00 PM CD T documented as of this encounter Care Teams Auth Specialist Relationship Specialty Start Date End Date Ana Red P.A.-C. PCP - General Internal Medicine 12/01/[address] [place] [phone] [facility]- [place] lab 08/25/21 Ervin Schroeder MD Referring Provider Family Medicine 03/24/[address] [place] [address] documented as of this encounter
--- OUTSIDE RECORDS SUMMARY | 2022-02-12 20:20 | XMS_ITS | Encounter Summary ---
:1990 Author Organization [facility] Address [address] [place] [address] Care Team Providers Name Role Phone Ana Red P.A.-C. Primary Care Provider [phone] Encounter Details Date Type Department Care Team Description 02/02/2022 Clinical Communication Department of [facility] Farida Perez Medicine in [address] [phone] [place], [place] [phone] (Work) [phone] Social History Tobacco Use Types Packs/Day Years [...] you attend rastafari or Patient refused 2021 jew services? Do [...] the highest technical, or vocational p [facility] degree you have received? 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 [phone] Telephone Encounter - Paty Stevens - 02/02/2022 10:39 AM CDT Reason for Communication: Patients calling in and stated that she is in [facility] and is needing the provider [...] Transplant 2 Appointment Radiology LuisMatthew abdul 2 Tyrell Rodriguez, Lilian [address] [place] [phone] Appointment Gastroenterology and Adrianne, 2 Hepatology Yue Burciaga M.D. [address] [place] [phone] Virtual Visit Transplant LuisMatthew abdul 2 Tyrell Rodriguez M.D. [address] [place] [phone] Office Visit Gastroenterology and Matthew Jerome 2 Hepatology Tyrell Rodriguez M.D. [address] [place] [phone] [facility] Tyrell Rodriguez M.D. [address] [place] [phone] Hospital Gastroenterology and [facility] Cirrhos is Alcoholic (HCC) 2 Encounter Hepatology Tyrell Rodriguez M.D. [address] [place] [phone] Anesthesia Event Gastroenterology and Rl, 2 Hepatology Ervin Burgos M.D. [address] [place] [phone] Surgery Gastroenterology and [facility] ESOPHAG OGASTRODUODENOSCOPY 2 Hepatology Tyrell Rodriguez M.D. [address] [place] [phone] Scheduled Procedures Name Priority Associated Diagnoses Date/Time ESOPHAGOGASTRODUODENOSCOPY Cirrhosis Alc oholic (HCC) 03/20/2022 8:45 AM AUTO CARRIER DRIVER Hypertension Portal (HCC) documented as of this encounter Visit Diagnoses Not on filedocumented in this encounter Additional Health Concerns Assessment Noted Time PHQ-9 Depression Total Score: 10 10/06/2021 5:00 PM CD T documented as of this encounter Care Teams Records Supervisor Relationship Specialty Start Date End Date Ana Red P.A.-C. PCP - General Internal Medicine 12/01/[address] [place], [place] [address]ADI Montoya [phone] [facility]- [place] lab 08/25/21 Ervin Schroeder MD Referring Provider Family Medicine 03/24/[address] [place] [address] [place] [address] documented as of this encounter
--- OUTSIDE RECORDS SUMMARY | 2022-02-12 20:20 | XMS_ITS | Encounter Summary ---
:1990 Author Organization [facility] Address [address] [place] [address] Care Team Providers Name Role Phone Ana Red P.A.-C. Primary Care Provider [phone] Encounter Details Date Type Department Care Team Description 01/30/2022 Clinical [facility] Farida Perez Medicine in [address] [address] [place], [place] [phone] (Work) [phone] Social History Tobacco Use Types Packs/Day Years [...] you attend yazidi or Patient refused 2021 tenriism services? 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 [address] [place] [phone] Appointment Gastroenterology and Adrianne, 2 Hepatology Yue Burciaga M.D. [address] [place] [phone] Virtual Visit Transplant Matthew Jerome 2 YTyrell M.D. [address] [place] [phone] Office Visit Gastroenterology and Matthew Jerome 2 Hepatology Tyrell Rodriguez M.D. [address] [place] [phone] Appointment Radiology Matthew Jerome 2 YVikBLilian Bedolla [address] [place] [phone] Hospital Gastroenterology and [facility] Cirrhos is Alcoholic (HCC) 2 Encounter Hepatology Tyrell Rodriguez, Lilian [address] [place] [phone] Anesthesia Event Gastroenterology and Rl, 2 Hepatology Ervin Burgos M.D. [address] [place] [phone] Surgery Gastroenterology and [facility] ESOPHAG OGASTRODUODENOSCOPY 2 Hepatology Tyrell Rodriguez M.D. [address] [place] [phone] Scheduled Procedures Name Priority Associated Diagnoses Date/Time ESOPHAGOGASTRODUODENOSCOPY Cirrhosis Alc oholic (HCC) 03/20/2022 8:45 AM COLLEGE SPORTS ASSISTANT Hypertension Portal (HCC) documented as of this encounter Visit Diagnoses Not on filedocumented in this encounter Additional Health Concerns Assessment Noted Time PHQ-9 Depression Total Score: 10 10/06/2021 5:00 PM CD T documented as of this encounter Care Teams Bliss Press Operator Relationship Specialty Start Date End Date Ana Red P.A.-C. PCP - General Internal Medicine 12/01/[address] [place] [address] ADI PANIAGUA [phone] [facility] [place] lab 08/25/21 Ervin Schroeder MD Referring Provider Family Medicine 03/24/[address] [place] [address] ADI Paniagua [phone] documented as of this encounter
--- OUTSIDE RECORDS SUMMARY | 2022-02-12 20:20 | XMS_ITS | Encounter Summary ---
:1990 Author Organization [facility] Address [address] [place] [address] Care Team Providers Name Role Phone Ana Red P.A.-C. Primary Care Provider [phone] Encounter Details Date Type Department Care Team Description 01/30/2022 Orders Only Division [facility] Harinder Mccormick M.D. Internal Medicine, [address] in [facility] [phone] [place] [address] [place], [place] [phone] Social History Tobacco Use Types Packs/Day Years [...] you attend anabaptism or Patient refused 2021 catholic services? 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 [address] [place] [phone] Virtual Visit Transplant Matthew Jerome 2 YKishore.Lilian Salas [address] [place] [phone] Office Visit Gastroenterology and [facility] 2 Hepatology Tyrell Rodriguez M.D. [address] [place] [phone] Appointment Radiology [facility] 2 Tyrell Rodriguez M.D. [address] [place] [phone] [facility] Gastroenterology and [facility] Cirrhos is Alcoholic (HCC) 2 Encounter Hepatology Tyrell Rodriguez M.D. [address] [place] [phone] Anesthesia Event Gastroenterology and Rl, 2 Hepatology Ervin Burgos M.D. [address] [place] [phone] Surgery Gastroenterology and [facility] ESOPHAG OGASTRODUODENOSCOPY 2 Hepatology Tyrell Rodriguez M.D. [address] [place] [phone] Scheduled Procedures Name Priority Associated Diagnoses Date/Time ESOPHAGOGASTRODUODENOSCOPY Cirrhosis Alc oholic (HCC) 03/20/2022 8:45 AM MORTGAGE COUNSELOR Hypertension Portal (HCC) documented as of this encounter Visit Diagnoses Not on filedocumented in this encounter Additional Health Concerns Assessment Noted Time PHQ-9 Depression Total Score: 10 10/06/2021 5:00 PM CD T documented as of this encounter Care Teams Building Associate Relationship Specialty Start Date End Date Ana Red P.A.-C. PCP - General Internal Medicine 12/01/[address] [place] [address], [place] [phone] [facility] 08/25/21 Ervin Schroeder MD Referring Provider Family Medicine 03/24/[address] [place] [address] ADI Mejía [phone] documented as of this encounter
--- OUTSIDE RECORDS SUMMARY | 2022-02-12 20:20 | XMS_ITS | Encounter Summary ---
:1990 Author Organization [facility] Address [address] [place] [address] Care Team Providers Name Role Phone Ana Red P.A.-C. Primary Care Provider Reason for Visit Reason Comments Med Refill Encounter Details Date Type Department Care Team Description 01/29/2022 Refill Department of [facility] Ana Red , Med Refill Internal Medicine in [place], [place] 300 [facility] [place] [facility] 300 [place] [phone] [place] [address] [phone] Social History Tobacco Use Types Packs/Day Years [...] you attend confucianism or Patient refused 2021 christian services? Do you belong to any clubs or No 02/10/2022 organizations such as confucianism groups, unions, fraBiogenic Reagents or athletic groups, or school groups? 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 [address] [place] [phone] Appointment Gastroenterology and Adrianne, 2 Hepatology Yue Burciaga M.D. [address] [place] [address] Virtual Visit Transplant Matthew Jerome 2 YTyrell M.D. [address] [place] [phone] Office Visit Gastroenterology and Matthew Jerome 2 Hepatology Tyrell Rodriguez M.D. [address] [place] [phone] Appointment Radiology Matthew Jerome 2 Tyrell Rodriguez M.D. [address] [place] [phone] Hospital Gastroenterology and Matthew Jerome Cirrhos is Alcoholic (HCC) 2 Encounter Hepatology Tyrell Rodriguez M.D. [address] [place] [phone] Anesthesia Event Gastroenterology and Rl, 2 Hepatology Ervin Burgos M.D. [address] [place] [phone] Surgery Gastroenterology and Matthew Jerome ESOPHAG OGASTRODUODENOSCOPY 2 Hepatology Tyrell Rodriguez M.D. [address] [place] [phone] Scheduled Procedures Name Priority Associated Diagnoses Date/Time ESOPHAGOGASTRODUODENOSCOPY Cirrhosis Alc oholic (HCC) 03/20/2022 8:45 AM SUMMER LAW CLERK Hypertension Portal (HCC) documented as of this encounter Visit Diagnoses Not on filedocumented in this encounter Additional Health Concerns Assessment Noted Time PHQ-9 Depression Total Score: 10 10/06/2021 5:00 PM CD T documented as of this encounter Care Teams Pawn Broker Relationship Specialty Start Date End Date Ana Red P.A.-C. PCP - General Internal Medicine 12/01/[address] [place] [address] [facility] [place] [place] [phone] [facility] 08/25/21 Ervin Schroeder MD Referring Provider Family Medicine 03/24/[address] [place] [address] [place] [address] documented as of this encounter
--- OUTSIDE RECORDS SUMMARY | 2022-02-12 20:20 | XMS_ITS | Encounter Summary ---
:1990 Author Organization [facility] Address [address] [place] [address] Care Team Providers Name Role Phone Ana Red P.A.-C. Primary Care Provider [phone] Reason for Visit Reason Comments Phone Contact Encounter Details Date Type Department Care Team Description 01/29/2022 Clinical Communication Adry Orourke Phone Contact Center for [address] [place] [address] Transplantation and [place] [address] [place], [place] [phone] [place] [address] (Work) [place] [address] Social History Tobacco Use Types Packs/Day [...] you attend amish or Patient refused 2021 samaritan services? 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 Call log added. Telephone Encounter - Jo Ann Blakely - 01/29/2022 11:57 AM CDT Alisha from [facility] reaching out to the transplant team to assist pt in scheduling appts. Pt is also wanting to transfer her care from [place] to [place]. Please reach out to the pt at [phone]. Thanks, documented in this encounter Plan of Treatment Upcoming Encounters Date Type Specialty Care Team Description Telemedicine Transplant 2 Appointment Radiology Matthew Jerome 2 YVikBGraeme, Lilian [address] [place] [phone] Appointment Gastroenterology demian Silver 2 Hepatology Yue Burciaga M.D. [address] [place] [phone] Virtual Visit Transplant Matthew Jerome 2 Vik RodriguezBGraeme, Lilian [address] [place] [phone] Office Visit Gastroenterology and Matthew Jerome 2 Hepatology Joshua RodriguezB.BLilian Bedolla [address] [place] [phone] Appointment Radiology Matthew Jerome 2 YJoshuaB.B.SLilian Moise [address] [place] [phone] Hospital Gastroenterology and Queenie Matthew Cirrhos is Alcoholic (HCC) 2 Encounter Hepatology Joshua RodriguezB.B.SLilian Moise [address] [place] [phone] Anesthesia Event Gastroenterology and Rl, 2 Hepatology Ervin Burgos M.D. [address] [place] [phone] Surgery Gastroenterology and Mous[place], Matthew ESOPHAG OGASTRODUODENOSCOPY 2 Hepatology Tyrell Rodriguez M.D. [address] [place] [phone] Scheduled Procedures Name Priority Associated Diagnoses Date/Time ESOPHAGOGASTRODUODENOSCOPY Cirrhosis Alc oholic (HCC) 03/20/2022 8:45 AM SEWING MACHINIST Hypertension Portal (HCC) documented as of this encounter Visit Diagnoses Not on filedocumented in this encounter Additional Health Concerns Assessment Noted Time PHQ-9 Depression Total Score: 10 10/06/2021 5:00 PM CD T documented as of this encounter Care Teams Customer Supply Chain Analyst Relationship Specialty Start Date End Date Ana Red P.A.-C. PCP - General Internal Medicine 12/01/[address] [place] [phone] [facility]- [place] lab 08/25/21 Ervin Schroeder MD Referring Provider Family Medicine 03/24/[address] [place] [address] documented as of this encounter
[2022-02-12 20:21] LABS: Basophils Absolute Auto 0.02 K/uL (0.00-0.30); Basophils Percent Auto 0.4 % (0.0-3.0); Eosinophils Absolute Auto 0.06 K/uL (0.00-0.50); Eosinophils Percent Auto 1.2 % (0.0-7.0); Hematocrit 25.5 % (33.0-51.0); Hemoglobin* 8.8 gm/dL (12.0-16.0); Immature Granulocytes Abs Auto 0.01 K/uL (0.00-0.30); Mean Corpuscular HGB Conc 35 gm/dL (32-36); Mean Corpuscular Hemoglobin 35 pg (26-34); Mean Corpuscular Volume 102 fL (80-100); Monocytes Percent Auto 9.1 % (0.0-11.0); Neutrophils Percent Auto 77.1 % (42.0-72.0); Platelet Count* 56 K/uL (140-440); RDW Coefficient of Variation % 21.7 % (11.5-15.5); Red Blood Count 2.51 m/uL (4.00-5.20); White Blood Count* 5.16 K/uL (4.50-11.00)
--- OUTSIDE RECORDS SUMMARY | 2022-02-12 20:21 | XMS_ITS | Encounter Summary ---
:1990 Author Organization [facility] Address [address] [place] [address] Care Team Providers Name Role Phone Ana Red P.A.-C. Primary Care Provider [phone] Encounter Details Date Type Department Care [...] you attend temple or Patient refused 2021 christian services? 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 [address] [place] [phone] Virtual Visit Transplant Matthew Jerome 2 YTyrell M.D. [address] [place] [address] [phone] Office Visit Gastroenterology and Matthew Jerome 2 Hepatology Tyrell Rodriguez M.D. [address] [place] [phone] Appointment Radiology Queenie Matthew 2 YTyrell M.D. [address] [place] [phone] Hospital Gastroenterology and [facility] Cirrhos is Alcoholic (HCC) 2 Encounter Hepatology Tyrell Rodriguez M.D. [address] [place] [phone] Anesthesia Event Gastroenterology and Rl, 2 Hepatology Ervin Burgos M.D. [address] [place] [address] [phone] Surgery Gastroenterology and [facility] ESOPHAG OGASTRODUODENOSCOPY 2 Hepatology Tyrell Rodriguez M.D. [address] [place] [phone] Scheduled Procedures Name Priority Associated Diagnoses Date/Time ESOPHAGOGASTRODUODENOSCOPY Cirrhosis Alc oholic (HCC) 03/20/2022 8:45 AM CHEMICAL WASTE MANAGEMENT TECHNICIAN Hypertension Portal (HCC) documented as of [...] documented as of this encounter Care Teams Pacu Nurse Relationship Specialty Start Date End Date Ana Red P.A.-C. PCP - General Internal Medicine 12/01/[address] [place] [address] [phone] [facility] [place] [facility] 08/25/21 Ervin Schroeder MD Referring Provider Family Medicine 03/24/[address] [place] [address] [phone] documented as of this encounter
--- OUTSIDE RECORDS SUMMARY | 2022-02-12 20:21 | XMS_ITS | Encounter Summary ---
:1990 Author Organization [facility] Address [address] [place] [address] Care Team Providers Name Role Phone Ana Red P.A.-C. Primary Care Provider [phone] Reason for Visit Reason Comments Pre-visit Testing Orders Encounter Details Date Type Department Care Team Description 01/28/2022 Clinical RST Yue Hung Pre-visit Testing Communication [address] [facility] Lilian Burciaga Orders [place], [place] [address] [place] [phone] [place] [phone] Social History Tobacco Use Types Packs/Day Years [...] you attend restorationism or Patient refused 2021 muslim services? 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 [address] [place] [phone] Virtual Visit Transplant Matthew Jerome 2 YKishore.B.SSuma, Lilian [address] [place] [phone] Office Visit Gastroenterology and [facility] 2 Hepatology Tyrell Rodriguez M.D. [address] [place] [phone] Appointment Radiology [facility] 2 Tyrell Rodriguez M.D. [address] [place] [phone] [facility] Gastroenterology and [facility] Cirrhos is Alcoholic (HCC) 2 Encounter Hepatology Tyrell Rodriguez M.D. [address] [place] [phone] Anesthesia Event Gastroenterology and Rl, 2 Hepatology Ervin Burgos M.D. [address] [place] [phone] Surgery Gastroenterology and [facility] ESOPHAG OGASTRODUODENOSCOPY 2 Hepatology Tyrell Rodriguez M.D. [address] [place] [phone] Scheduled Procedures Name Priority Associated Diagnoses Date/Time ESOPHAGOGASTRODUODENOSCOPY Cirrhosis Alc oholic (HCC) 03/20/2022 8:45 AM RADIO DIRECTOR Hypertension Portal (HCC) documented as of this encounter Visit Diagnoses Not on filedocumented in this encounter Additional Health Concerns Assessment Noted Time PHQ-9 Depression Total Score: 10 10/06/2021 5:00 PM CD T documented as of this encounter Care Teams Ball Mill Operator Relationship Specialty Start Date End Date Ana Red P.A.-C. PCP - General Internal Medicine 12/01/[address] [place] [address] ADI Chua [phone] [facility] 08/25/21 Ervin Schroeder MD Referring Provider Family Medicine 03/24/[address] [place] [address] ADI Mejía [id number] documented as of this encounter
--- OUTSIDE RECORDS SUMMARY | 2022-02-12 20:21 | XMS_ITS | Encounter Summary ---
:1990 Author Organization [facility] Address [address] [place] [address] Care Team Providers Name Role Phone Ana Red P.A.-C. Primary Care Provider [phone] Reason for Referral Outpatient (Routine) - Pending Review Specialty Diagnoses / Procedures Referred By Contact Refer red To Contact Diagnoses Cirrhosis Alcoholic (HCC) Hypertension Portal (HCC) Esophageal Varices Without Bleeding (HCC) Yue Silver M.D. [facility] Procedures EGD [address] [place] [phone] Referral ID Status Reason Start Date Expiration Date Visits V isits Requested Authorized [id number] Pending 01/28/2022 01/28/2023 1 1 Review Outpatient (Routine) - Authorized Specialty Diagnoses / Procedures Referred By Contact Refer red To Contact Diagnoses Cirrhosis Alcoholic (HCC) Ascites Hepatic Failure Unspecified Without Coma (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 (HCC) Gerda Hull M.D., M.S. [address] [place] [address] [phone] Referral ID Status Reason Start Date Expiration Date Visits V isits Requested Authorized [id number] Authorized 01/27/2022 01/27/2023 1 1 Reason for [...] Expiration Date Visits Requ ested Visits Authorized [id number] 1 1 Encounter Details Date Type Department Care Team Description 01/20/2022 - [facility] Cody Knight M.D. [address] [place] [address] [phone] Failure Renal Acute (Acute Kidney Injury ) (HCC) (Primary Dx); [facility] [address] [place] [address] [phone] Cirrhosis Alcoholic (HCC); [facility] [address] [place] [address] [phone] Alcohol Use Unspecified With Unspecified Alcohol Induced Disorder (HCC); Ervin Hamm M.D. [address] [place] [address] [phone] Ascites; Building, Fifth Hepatic Fail ure Unspecified Without Coma (HCC); Floor Hepatic Encephalopathy Witho ut Coma (HCC); [address] [place] [address] Debility [R53.81 (ICD-10-CM) ]; [place], [place] Decline Functi onal Status [R53.81 (ICD-10-CM)]; [id number] Thrombocytopenia (HCC); [phone] Ascites Chronic ; Cirrhosis Alcoh olic (HCC); [...] How often do you attend religion or Patient refused 2021 latter day services? 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 I personally reviewed the discharge [...] AM CDT DISCHARGE SUMMARY BRIEF OVERVIEW Hospital: [facility] Discharge Provider: Ervin Mazariegos M.D. Primary Team: [facility] Medicine 3 ([facility]) Primary Care Providers: Ana Red P.A.-C. (General) 300 [facility] [place] [phone] Primary Care Provider Primary Care Provider Other [...] hospital problems. * DISCHARGE DISPOSITION Home-Health Care [facility] [6] ACTIVE ISSUES REQUIRING FOLLOW UP Recommendations: [...] 10 Transplant 01/28/2022 2:00 PM LAB 01 [facility] Laboratory Medicine 01/28/2022 2:20 PM LAB 01 [facility] Laboratory Medicine 01/28/2022 2:45 PM Matthew [...] Ask transplant clinic for a manager social or classification case manager - Continue weekly AA meetings. [...] kidney function You were discharged from the [facility] Medicine 3 ([facility]) Service. Please identify this service name if you call with questions after hospitalization. [facility] experts agree: You should get a COVID-19 vaccine as soon as it's available to you. The vaccines that we???re recommending have been approved for safe use. [facility] will continue to coordinate with state and local governments on future vaccine distribution phases. o If your primary care provider is at [facility] and you plan to receive your vaccination at [facility], please ensure that you have activated your Patient Portal at [facility] to allow [facility] to communicate to you about the scheduling [...] Discharge information provided on 01/27/2022 Contact information: [facility], 5 Jose Raul, documented in [...] 01/28/2022 3:15 PM CDT T Medicine 3 ([facility]) PROGRESS NOTE SUBJECTIVE Christelle says she [...] / PLAN Ms. Carias is hospitalized on [facility] Medicine 3 ([facility]) for evaluation and management of Failure [...] 40mg # Dispo - Please provide a non-[facility] home health order for resumption of previous services by home health care for long-term once a week medication management on the [...] with expected discharge date Plan discussed with [facility] Medicine 3 ([facility]) Neuroscience Director Na, Ervin Osorio M.D., who was present during judd portions of the evaluation today. Please page the [facility] Medicine 3 ([facility]) service pager at [phone] with any questions. T Carlotta Rader, DELTA, [...] +1 generalized, +1-2 BLE edema noted per refractory manager. Estimated Needs: Total Calorie Needs: 4677-0129 calories/day Method to Estimate Energy Needs: [place] (Basal to Basal + 20%) Weight Used [...] about patient's nutritional care please contact pager [phone] on weekdays or [phone] on weekends/holidays. Ervin Mazariegos M.D. - 01/28/2022 1:19 PM CDT [facility] Medicine 3 ([facility]) Supervisory Note I have seen and [...] our team's planof care. Counseling was provided pizi-fs-dfpp at bedside regarding the plan of care [...] [facility] / Plan: [facility] [place] CARE RESTRICTED PLAN / Product Type: [...] Modified independent Assessment/Delivery: Assessed Toilet Transfers Comments: Mcj-mt-qfxed transfers as above; patient initially requesting therapist [...] needs met and questions answered. Outcome Measures [facility] Inpatient Short Form: -[facility] Basic Mobility (V.2) How much [...] steps with a railing?: A Little -[facility] Basic Mobility (V.2) Raw Score: 23 -[facility] Basic Mobility (V.2) Standardized Score: 50.88 Interpretation: Clinicians answer the -[facility] Inpatient Short Form based on [...] min Total Treatment Time (min): 20 min ([id number]) Allie Greer P.T., D.P.T. Harlan Monterroso, RSumaN. - 01/28/2022 7:22 AM CDT SUBJECTIVE Referral Data Discharge Planning: Reconnection of [facility] patient declined additional resources. Anticipated Needs Home [...] Selected Services Address Phone Fax Patient Preferred [facility] [address] [facility] [facility] [phone] -- Contact: Intake NURSING: - Complete documentation in the Discharge Navigator including Nursing Report Info and Facility/NextLevel of Care Info - Call report and arrange for the patient???s first visit. - Send required packet of dismissal information with patient, including After Visit Summary and advance directive. PRIMARY SERVICE: - Please provide a non-[facility] home health order for resumption of previous services by home health care for long-term once a week medication management on the [...] Guan M.D. - 01/27/2022 1:08 PM CDT [facility] Medicine 3 ([facility]) Supervisory Note I have seen and [...] team's plan of care. Counseling was provided gjqe-vr-gxpl at bedside regarding the plan of care as stated above. I personally spent over half of a total 25 minutes in counseling and coordination of care as documented above. Gerda Shirley M.D., M.S. - 01/27/2022 11:56 AM CDT [facility] 3 ([facility]) PROGRESS NOTE SUBJECTIVE Patient had EGD [...] / PLAN Ms. Carias is hospitalized on [facility] 3 ([facility]) for evaluation and management of Failure [...] 40mg # Dispo - Please provide a [facility] home health order for resumption of previous services by home health care for long-term once a week medication management on the [...] with expected discharge date Plan discussed with [facility] Medicine 3 ([facility]) Neuroscience Director Na, Ervin Osorio M.D., who was present during judd portions of the evaluation today. Please page the [facility] Medicine 3 ([facility]) service pager at [phone] with any questions. Nora Kelly Pharm.D., R.Ph. [...] 01/26/2022 2:01 PM CDT T Medicine 3 ([facility]) Supervisory Note I have seen and [...] our team's planof care. Counseling was provided jlio-qz-xfir at bedside regarding the plan of care [...] note pulled forward below from 01/21/2022 by Fitness Professional Virginia Handley M.S., R.N. SUBJECTIVE Referral Data Discharge Planning: Reconnection of [facility] patient declined additional resources. Anticipated Needs Home [...] Selected Services Address Phone Fax Patient Preferred [facility] [address], [facility] [phone] -- Contact: Intake NURSING: - Complete documentation in the Discharge Navigator including Nursing Report Info and Facility/NextLevel of Care Info - Call report and arrange for the patient???s first visit. - Send required packet of dismissal information with patient, including After Visit Summary and advance directive. PRIMARY SERVICE: - Please provide a non[facility] home health order for resumption of previous services by home health care for long-term once a week medication management on the [...] 01/26/2022 6:12 AM CDT [facility] Medicine 3 ([facility]) PROGRESS NOTE SUBJECTIVE Ms. Carias reports [...] / PLAN Ms. Carias is hospitalized on [facility] 3 ([facility]) for evaluation and management of Failure [...] 40mg # Dispo - Please provide a [facility] home health order for resumption of previous services by home health care for long-term once a week medication management on the [...] with expected discharge date Plan discussed with [facility] Medicine 3 ([facility]) Neuroscience Director Na, Joshua Ayala M.D., who was present during judd portions of the evaluation today. Please page the [facility] Medicine 3 ([facility]) service pager at [phone] with any questions. Rhea Silver MD Nora [...] 01/25/2022 6:06 AM CDT [facility] Medicine 3 ([facility]) PROGRESS NOTE SUBJECTIVE Ms. Carias reports [...] / PLAN Ms. Carias is hospitalized on [place] [address] ([facility]) for evaluation and management of Failure [...] with expected discharge date Plan discussed with [facility] Medicine 3 ([facility]) Neuroscience Director Na, Joshua Ayala M.D., who was present during judd portions of the evaluation today. Please page the [facility] Medicine 3 ([facility]) service pager at [phone] with any questions. Rhea Silver MD Associated attestation - Joshua Johnson M.D. - 01/25/2022 3:45 PM CDT I saw and evaluated the patient, participating in the judd portions of the service. I reviewed the resident/fellow???s note. I agree with the resident/fellow???s findings and plan. Yue Silver M.D. - 01/24/2022 7:11 AM CDT [facility] Medicine 3 ([facility]) PROGRESS NOTE SUBJECTIVE Ms. Carias reports [...] / PLAN Ms. Carias is hospitalized on [place] [address] ([facility]) for evaluation and management of Failure [...] with expected discharge date Plan discussed with [facility] Medicine 3 ([facility]) Neuroscience Director Na, Joshua Ayala M.D., who was present during judd portions of the evaluation today. Please page the [facility] Medicine 3 ([facility]) service pager at [phone] with any questions. Rhea Silver MD Associated [...] Internal Medicine, PGY-1 Medicine 3 Service Pager [phone] Migue Spencer - 01/23/2022 11:24 AM CDT [facility] Medicine 3 ([facility]) PROGRESS NOTE SUBJECTIVE Ms. Carias did [...] / PLAN Ms. Carias is hospitalized on [place] [address] ([facility]) for evaluation and management of Failure [...] with expected discharge date Plan discussed with [facility] Medicine 3 ([facility]) Neuroscience Director Na, Joshua Ayala M.D., who was present during judd portions of the evaluation today. Please page the [facility] Medicine 3 ([facility]) service pager at [phone] with any questions. Migue Spencer Third-Year Medical Student [facility] Joshua Francois M.D. - 01/23/2022 10:29 [...] had any bowel movements despite lactulose treatment. [place] making test was completed 37 seconds indicating [...] Care Management Consult completed by SOPHIA Ramsey, COMPOSER TEACHING ARTIST on 01/12/22. SUBJECTIVE Referral Data Discharge Planning: Reconnection of [facility] patient declined additional resources. Anticipated Needs Home [...] Selected Services Address Phone Fax Patient Preferred [facility] [address], [facility] [phone] -- Contact: Intake NURSING: - Complete documentation in the Discharge Navigator including Nursing Report Info and Facility/NextLevel of Care Info - Call report and arrange for the patient???s first visit. - Send required packet of dismissal information with patient, including After Visit Summary and advance directive. PRIMARY SERVICE: - Please provide a non[facility] home health order for resumption of previous services by home health care for long-term once a week medication management on the [...] 01/20/2022 11:45 PM CDT T Medicine 3 ([facility]) Senior Admission Note SUBJECTIVE CHIEF COMPLAINT: [...] will be formally staffed with the supervising tanning consultant in the morning. Please page the [facility] 3 ([facility]) service pager with any questions. Kathy [...] [facility] C[facility] / Plan: [facility] CARE RESTRICTED PLAN / Product Type: Medicaid [...] >1 year Prior Mobility/Functional Transfers Level of [place]: Modified independent Gait Devices/Wheelchair Used: Front wheeled [...] needs met and questions answered. Outcome Measures [facility] Inpatient Short Form: -[facility] Basic Mobility (V.2) How much [...] 3-5 steps with a railing?: A Lot -[facility] Basic Mobility (V.2) Raw Score: 19 AM-PAC Basic Mobility (V.2) Standardized Score: 42.48 Interpretation: Clinicians answer the -[facility] Inpatient Short Form based on [...] Inpatient Appointment: 01/28/22 PT Plan Comments: Progress yuv-zw-klxug transfers; progress ambulation; stair negotiation Treatment interventions may include: Treatment/Interventions: Therapeutic functional activity, Gait training, Self- care/home management Billing: Time Spent with Patient Evaluations PT Eval - Mod Complexity: 10 min Therapeutic Interventions Therapeutic Activity (min): 16 min Time Tracking Total Timed Units (min): 16 min Total Treatment Time (min): 26 min ([id number]; Co-evaluation and treatment session with OT in [...] [facility] / Plan: [facility] [place] CARE RESTRICTED PLAN / Product Type: [...] Pretransplant Recipient Evaluation Exam Deficiency 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 Use Of Opiate Analgesic Nicotine Dependence Cigarettes [...] paint, color Prior Mobility/Functional Transfers Level of [place]: Modified independent Gait Devices/Wheelchair Used: Front wheeled [...] Completion Date - OT: 01/27/22 Outcome Measures [facility] Inpatient Short Form: Putting on and taking [...] Standardized Score: 42.03 Interpretation: Clinicians answer the [facility] Inpatient Short Form based on observed patient [...] in shower, Grab bar(s) by toilet (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 Transferring using GB/pivot w/ 1-2. [facility] setup by CM. Patient states all needs [...] Care for this patient was transferred to wy at shift change. Please see associated documentation [...] an outpatient by her providers in the [place] area. She was advised to come to [...] U Negative Ketone, POCT, U Trace(!) Specific [place], POCT, U 1.015 Blood, POCT, U Negative [...] 01/20/2022 8:06 PM CDT Pt presents to [place] [address] with back pain, rib cage pn, and [...] Radiology Matthew Jerome 2 Tyrell Rodriguez M.D. [address] [place] [phone] Appointment Gastroenterology and Adrianne, 2 Hepatology Yue Burciaga M.D. [address] [place] [phone] Virtual Visit Transplant Matthew Jerome 2 Tyrell Rodriguez M.D. [address] [place] [phone] Office Visit Gastroenterology and Matthew Jerome 2 Hepatology Tyrell Rodriguez M.D. [address] [place] [phone] Appointment Radiology Matthew Jerome 2, M.B.B.S., M.D. [address] [place] [phone] Hospital Gastroenterology and Matthew Jerome Cirrhos is Alcoholic (HCC) 2 Encounter Hepatology Tyrell Rodriguez M.D. [address] [place] [phone] Anesthesia Event Gastroenterology and Rl, 2 Hepatology Ervin Burgos M.D. [address] [place] [phone] Surgery Gastroenterology and Mousa, Matthew ESOPHAG OGASTRODUODENOSCOPY 2 Hepatology Tyrell Rodriguez M.D. 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 LAB BLOOD ADD-ON Performing Organization Address City/[facility]/ZIP Code Phon e Number [facility] - [address] [place] [address] Laboratories-[facility] 200 [facility] (ABNORMAL) Basic Metabolic Panel (01/29/2022 4:39 [...] Organization Address City/State/ZIP Code Phon e Number [facility] - 200 [place] [address] [address] [facility] [place] [address] [facility] 200 [facility] (ABNORMAL) Hematocrit (01/28/2022 1:36 PM CDT) P athologist Signature Hematocrit 22.0 (L) 35.5 - 44.9 [facility]/28[facility]2022 [facility] PM CDT Specimen Anatomical Collection Method Collection Time Receive d Time (Source) Location / / Volume Laterality Blood (Blood, 01/28/2022 1:36 PM 01/29/20 22 2:08 Venous) CDT PM CDT Yue Silver M.D. LAB BLOOD ADD-ON Performing Organization Address City/State/ZIP Code Phon e Number [facility] - [address] [place] [address] Laboratories-[facility] [address] [facility] [place] Lower Extremity Veins Bilateral (01/28/2022 [...] Grullon's cyst. Other: Mild to moderate subcutaneous oj ma most marked in the region of the calf. Information on venous thrombosis and man agement can be found on the [employer] site. Link [email or web address] Procedure Note Migue Talavera M.D. - 01/28/2022Form [...] man agement can be found on the [employer] site. Link [email or web address] [email or web address]/topic/[email or web address] [email or web address] IMPRESSION: 1. Negative for acute DVT within [...] Organization Address City/State/ZIP Code Phon e Number [facility] - [address] [place], [place] [address] [facility] [place] [address] Laboratories-[facility] [address] (ABNORMAL) Basic Metabolic Panel (01/28/2022 5:28 AM [...] Organization Address City/State/ZIP Code Phon e Number [facility] - [address] [place], [place] [address] [facility] [place] [address] Laboratories-[facility] [address] (ABNORMAL) CBC without Differential (01/28/2022 5:28 AM CDT) [facility] Method Time Signature Hemoglobin 7.4 (L) [...] Organization Address City/State/ZIP Code Phon e Number [facility] - 200 [place], [place] [address] [facility] [place] [place] [address] Laboratories-[facility] [address] [place] Paracentesis with Imaging Guidance (01/27/2022 [...] with Differential, Blood (01/27/2022 4:47 AM CDT) [facility] Method Time Signature Hemoglobin 7.4 (L) [...] Blood (Blood, 01/27/2022 4:47 AM 01/28/20 22 5:46 Venous) CDT AM CDT Yue Silver M.D. LAB BLOOD ADD-ON Performing Organization Address City/State/ZIP Code Phon e Number [facility] - 200 [place], [place] [address] [facility] [place] [place] [address] Laboratories-[facility] 200 [facility] Basic Metabolic Panel (01/27/2022 4:47 AM [...] Organization Address City/State/ZIP Code Phon e Number [facility] - [address] [place], [place] [address] [facility] [place] [place] [address] Laboratories-[facility] [address] (ABNORMAL) Cystatin C with Estimated GFR (01/27/2022 [...] 01/28/20 7:35 Venous) CDT AM CDT Darrick DanielSSuma LAB BLOOD ADD-ON Performing Organization Address City/[facility] Phon e Number [facility] - [address] (ABNORMAL) Coagulation Factor XI Activity Assay (01/26/2022 6:58 PM CDT) athologist Signature Coag Factor XI 18 (L) 55 - 150 % 01/27/2022 [facility] Assay, P 12:47 PM CDT Comment: ----ADDITIONAL INFORMATION---- This test has been modified from the man ufacturer's instructions. Its performance characteri stics were determined by [facility] in a manner co nsistent with CLIA requirements. This test has not bee n cleared or approved by the U.S. Food and Drug Admin istration. Specimen Anatomical Collection Method Collection Time Receive d Time (Source) Location / / Volume Laterality Blood 01/26/2022 6:58 PM 2 CDT 11:30 AM CDT Darrick DanielSSuma LAB BLOOD ADD-ON Performing Organization Address City/[facility] Phon e Number [facility] - 200 [place] [address] (ABNORMAL) Coagulation Factor XII Activity Assay (01/26/2022 6:58 PM CDT) athologist Signature Coag Factor XII 32 (L) 55 - 180 % 01/27/2022 DTL Assay, P 12:47 PM CDT Comment: ----ADDITIONAL INFORMATION---- This test has been modified from the [facility] instructions. Its performance characteri stics were determined by [facility] in a manner co nsistent with CLIA requirements. This test has not bee n cleared or approved by the U.S. Food and Drug Admin istration. Specimen Anatomical Collection Method Collection Time Receive d Time (Source) Location / / Volume Laterality Blood 01/26/2022 6:58 PM 2 CDT 11:30 AM CDT Darrick Santillan LAB BLOOD ADD-ON Performing Organization Address City/[facility] Phon e Number [facility] - [address] [place] [address] Laboratories-[address] (ABNORMAL) Coagulation Factor IX Activity Assay (01/26/2022 6:58 PM CDT) athologist Signature Coag Factor IX 29 (L) 65 - 140 % 01/27/2022 DTL Assay, P 12:47 PM CDT Comment: ----ADDITIONAL INFORMATION---- This test has been modified from the [facility]'s instructions. Its performance characteri stics were determined by [facility] in a manner co nsistent with CLIA requirements. This test has not bee n cleared or approved by the U.S. Food and Drug Admin istration. Specimen Anatomical Collection Method Collection Time Receive d Time (Source) Location / / Volume Laterality Blood 01/26/2022 6:58 PM 2 CDT 11:30 AM CDT Darrick DanielSSuma LAB BLOOD ADD-ON Performing Organization Address City/[facility] Phon e Number [facility] - 200 [place], [place] [address] [facility] [place] [address] Laboratories-[address] Coagulation Factor VIII Activity Assay (01/26/2022 6:58 PM CDT) athologist Signature Coag Factor 93 55 - 200 % 01/27/2022 DTL VIII Activity 12:19 PM CDT Assay, P Comment: ----ADDITIONAL INFORMATION---- This test has been modified from the [facility]'s instructions. Its performance characteri stics were determined by [facility] in a manner co nsistent with CLIA requirements. This test has not bee n cleared or approved by the U.S. Food and Drug Admin istration. Specimen Anatomical Collection Method Collection Time Receive d Time (Source) Location / / Volume Laterality Blood 01/26/2022 6:58 PM 2 CDT 11:30 AM CDT Darrick Santillan LAB BLOOD ADD-ON Performing Organization Address City/[facility] Phon e Number [facility] - [address] (ABNORMAL) Coag Factor X Assay, P (01/26/2022 6:58 PM CDT) athologist Signature Coag Factor X 29 (L) 70 - 150 % 01/27/2022 DTL Assay, P 12:19 PM CDT Comment: ----ADDITIONAL INFORMATION---- This test has been modified from the [facility]'s instructions. Its performance characteri stics were determined by [facility] in a manner co nsistent with CLIA requirements. This test has not bee n cleared or approved by the U.S. Food and Drug Admin istration. Specimen Anatomical Collection Method Collection Time Receive d Time (Source) Location / / Volume Laterality Blood 01/26/2022 6:58 PM 2 CDT 11:30 AM CDT Darrick DanielSSuma LAB BLOOD ADD-ON Performing Organization Address City/[facility] Phon e Number [facility] - [address] (ABNORMAL) Coagulation Factor VII Activity Assay (01/26/2022 6:58 PM CDT) athologist Signature Coag Factor VII 13 (L) 65 - 180 % 01/27/2022 DTL Assay, P 12:19 PM CDT Comment: ----ADDITIONAL INFORMATION---- This test has been modified from the [facility]'s instructions. Its performance characteri stics were determined by [facility] in a manner co nsistent with CLIA requirements. This test has not bee n cleared or approved by the U.S. Food and Drug Admin istration. Specimen Anatomical Collection Method Collection Time Receive d Time (Source) Location / / Volume Laterality Blood 01/26/2022 6:58 PM 2 CDT 11:30 AM CDT Darrick Santillan LAB BLOOD ADD-ON Performing Organization Address City/[facility] Phon e Number [facility] - [address] (ABNORMAL) Coagulation Factor V Activity Assay (01/26/2022 6:58 PM CDT) athologist Signature Coag Factor V 18 (L) 70 - 165 % 01/27/2022 DTL Assay, P 12:19 PM CDT Comment: ----ADDITIONAL INFORMATION---- This test has been modified from the [facility] instructions. Its performance characteri stics were determined by [facility] in a manner co nsistent with CLIA requirements. This test has not bee n cleared or approved by the U.S. Food and Drug Admin istration. Specimen Anatomical Collection Method Collection Time Receive d Time (Source) Location / / Volume Laterality Blood 01/26/2022 6:58 PM 2 CDT 11:30 AM CDT Darrick DanielSSuma LAB BLOOD ADD-ON Performing Organization Address City/[facility] Phon e Number [facility] - [address] [place] [address] Laboratories-[address] (ABNORMAL) Coagulation Factor II Activity Assay (01/26/2022 6:58 PM CDT) athologist Signature Coag Factor II 28 (L) 75 - 145 % 01/27/2022 DT Assay, P 12:19 PM CDT Comment: ----ADDITIONAL INFORMATION---- This test has been modified from the [facility]'s instructions. Its performance characteri stics were determined by [facility] in a manner co nsistent with CLIA requirements. This test has not bee n cleared or approved by the U.S. Food and Drug Admin istration. Specimen Anatomical Collection Method Collection Time Receive d Time (Source) Location / / Volume Laterality Blood 01/26/2022 6:58 PM 2 CDT 11:30 AM CDT Darrick Santillan LAB BLOOD ADD-ON Performing Organization Address City/[facility] Phon e Number [facility] - [address] Reptilase Time, Plasma (01/26/2022 6:58 PM CDT) athologist Signature Reptilase Time, 21.0 14.0 - 23.9 01/27/2022 [facility] P sec 11:03 AM CDT Comment: ----ADDITIONAL INFORMATION---- This test has been modified from the [facility]'s instructions. Its performance characteri stics were determined by [facility] in a manner co nsistent with CLIA requirements. This test has not bee n cleared or approved by the U.S. Food and Drug Admin istration. Specimen Anatomical Collection Method Collection Time Receive d Time (Source) Location / / Volume Laterality Blood 01/26/2022 6:58 PM 2 7:12 CDT AM CDT Darrick DanielSSuma LAB BLOOD ADD-ON Performing Organization Address City/[facility]/ZIP [facility] Phon e Number [facility] - [address] PT Mix 1:1 (01/26/2022 6:58 PM CDT) athologist Signature PT Mix 1:1 11.8 9.4 - 12.5 01/27/2022 DTL sec 11:04 AM CDT Comment: ----ADDITIONAL INFORMATION---- This test has been modified from the doug boggsr's instructions. Its performance characteri stics were determined by [facility] in a manner co nsistent with CLIA requirements. This test has not bee n cleared or approved by the U.S. Food and Drug Admin istration. Specimen Anatomical Collection Method Collection Time Receive d Time (Source) Location / / Volume Laterality Blood 01/26/2022 6:58 PM 2 7:12 CDT AM CDT Darrick Santillan LAB BLOOD ADD-ON Performing Organization Address City/[facility] Phon e Number [facility] - [address] APTT Mix 1:1 (01/26/2022 6:58 PM CDT) athologist Signature APTT Mix 1:1 28 25 - 37 sec 01/27/2022 DTL 11:04 AM CDT Comment: ----ADDITIONAL INFORMATION---- This test has been modified from the doug boggsr's instructions. Its performance characteri stics were determined by [facility] in a manner co nsistent with CLIA requirements. This test has not bee n cleared or approved by the U.S. Food and Drug Admin istration. Specimen Anatomical Collection Method Collection Time Receive d Time (Source) Location / / Volume Laterality Blood 01/26/2022 6:58 PM 2 7:12 CDT AM CDT Darrick DanielSSuma LAB BLOOD ADD-ON Performing Organization Address City/[facility] Phon e Number [facility] - [address] Dilute Russells Viper Venom Time (DRVVT) (01/26/2022 6:58 PM CDT) athologist Signature DRVVT Screen 0.85 <1.20 ratio 01/27/2022 DTL Ratio 11:04 AM CDT Specimen Anatomical Collection Method Collection Time Receive d Time (Source) Location / / Volume Laterality Blood 01/26/2022 6:58 PM 2 7:12 CDT AM CDT Darrick DanielSSuma LAB BLOOD ADD-ON Performing Organization Address City/[facility] Phon e Number [facility] - 200 [place] [address] 05 [facility] [place] [address] Laboratories-[address] (ABNORMAL) PT-Fibrinogen (01/26/2022 6:58 PM CDT) athologist Signature PT-Fibrinogen, 241 (L) 261 - 595 01/27/2022 DTL P mg/dL 9:36 AM CDT Specimen Anatomical Collection Method Collection Time Receive d Time (Source) Location / / Volume Laterality Blood 01/26/2022 6:58 PM 2 7:12 CDT AM CDT Darrick DanielSSuma LAB BLOOD NON ADD-ON Performing Organization Address City/[facility]/ZIP Code Phon e Number [facility] - [address] [place] [address] Laboratories-[address] (ABNORMAL) Soluble Fibrin Monomer (01/26/2022 6:58 PM CDT) athologist Signature Soluble Fibrin 165 (H) <=8 mcg/mL 01/27/2022 DTL Monomer 10:57 AM CDT Comment: ----ADDITIONAL INFORMATION---- This test was developed and its performa nce characteristics determined by [facility] in a manner co nsistent with CLIA requirements. This test has not bee n cleared or approved by the U.S. Food and Drug Admin istration. Specimen Anatomical Collection Method Collection Time Receive d Time (Source) Location / / Volume Laterality Blood 01/26/2022 6:58 PM 2 7:12 CDT AM CDT Darrick DanielS. LAB BLOOD NON ADD-ON Performing Organization Address City/State/ZIP Code Phon e Number [facility] - 200 [place], [place] [address] [facility] [place] [place] [address] Laboratories-[facility] [address] [facility] (ABNORMAL) DIC/ICF Profile (01/26/2022 6:58 PM CDT) [facility] gist Method Time Signature Prothrombin Time 25.2 [...] Its performance characteri stics were determined by [facility] in a manner co nsistent with [...] Laterality Blood (Blood, 01/26/2022 6:58 PM 01/28/20 22 7:12 Venous) CDT AM CDT Narrative [facility] - 01/27/2022 5:26 PM CDT Specimen Information: Specimen ID: [id number] Specimen Type: Blood Specimen Collection Start Date: 01/27/20 ??6:58 PM Specimen Received Date: 01/27/2022 ??7:1 2 AM Specimen ID: [id number] Specimen Type: Blood Specimen Collection Start Date: 01/27/20 ??6:58 PM Specimen Received Date: 01/27/2022 ??7:1 2 AM Specimen ID: [id number] Specimen Type: Blood Specimen Collection Start Date: 01/27/20 ??6:58 PM Specimen Received Date: 01/27/2022 ??7:1 2 AM Specimen ID: [id number] Specimen Type: Blood Specimen Collection Start Date: 01/27/20 ??6:58 PM Specimen Received Date: 01/27/2022 ??7:1 2 AM Specimen ID: [id number] Specimen Type: Blood Specimen Collection Start Date: 01/27/20 ??6:58 PM Specimen Received Date: 01/27/2022 ??7:1 2 AM Darrick Santillan LAB BLOOD NON ADD-ON Performing Organization Address City/[facility]/ZIP Code Phon e Number [facility] - [address] [place] [address] 05 [facility] [place] [address] Laboratories-[facility] 200 [facility] (ABNORMAL) Copper (01/26/2022 6:57 PM CDT) P athologist Signature Copper, S 58 (L) 77 - 206 01/27/2022 SDSC mcg/dL 11:02 AM CDT Comment: ----ADDITIONAL INFORMATION---- This test was developed and its performa nce characteristics determined by [facility] in a manner consistent with CLIA [...] Organization Address City/State/ZIP Code Phon e Number [place] [id number] [place] [address] TA Mueller (01/26/2022 6:57 PM CDT) athologist Signature Lance Mueller 66 60 - 106 01/27/2022 [facility] mcg/dL 11:02 AM CDT Comment: ----ADDITIONAL INFORMATION---- This test was developed and its performa nce characteristics determined by [facility] in a manner consistent with CLIA requirements. This test has not been cleared or approved by the [place] Meg[place] d and Drug Administration. Specimen Anatomical Collection Method Collection Time Receive d Time (Source) Location / / Volume Laterality Blood (Blood, 01/26/2022 6:57 PM 01/28/20 7:45 Venous) CDT AM CDT Darrick Santillan LAB BLOOD NON ADD-ON Performing Organization Address [facility] Phon e Number [place] [id number] [place] [address] [place], [place] [phone] [place] [address] Dr. CHAPPELL Upper GI Endoscopy (01/26/2022 3:18 PM CDT) Specimen (Source) Anatomical Collection Method Collection Time Re ceived Time Location / / Volume Laterality 01/26/2022 3:18 PM CDT Impressions [facility] - 01/26/2022 10:50 PM CDT Post-op Diagnoses: ? - Large (> 5 mm) esophageal varic es with no bleeding and no stigmata of ? recent bleeding. Banded x 6. ? - Portal hypertensive gastropathy (non-bleeding). ? - No specimens collected. Narrative [facility] - 01/26/2022 10:50 PM CDT Otto 6 [...] No immedia te complications. 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 pro cedure, including non-judd portions. Andreas Price MD 01/26/2022 10:50:15 PM This report has been signed electronical ly. Number of Addenda: 0 Huang Diamond M.D. GI PROCEDURE ORDERABLES Performing Organization Address City/State/ZIP Code Phon e Number [facility] NA Transfuse Fresh Frozen Plasma :INR >2: Invasive proc scheduled; 180 mL/hr (01/26/2022 11:20 AM CDT) Darrick DanielSSuma BLOOD TRANSFUSION ORDERABLES Transfuse Fresh Frozen Plasma :INR >2: Invasive proc scheduled; 180 mL/hr, 2 Units (01/26/2022 11:20 AM CDT) Darrick CheryB.S. BLOOD TRANSFUSION ORDERABLES (ABNORMAL) Hematocrit (01/26/2022 11:16 AM CDT) athologist Signature Hematocrit 21.3 (L) 35.5 - 44.9 01/26/2022 [facility] % 11:25 AM CDT Specimen Anatomical Collection Method Collection Time Receive d Time (Source) Location / / Volume Laterality Blood (Blood, 01/26/2022 11:16 01/26/2022 Venous) AM CDT 11:22 AM CDT Gerda Hull M.D., M.S. LAB BLOOD ADD-ON Performing Organization Address City/State/ZIP Code Phon e Number [facility] - [address] [place], [place] [address] [place] [address] Laboratories-[facility] [address] (ABNORMAL) Hemoglobin (01/26/2022 11:16 AM CDT) P athologist Signature Hemoglobin 7.4 (L) 11.6 - 15.0 01/26/2022 [facility] g/dL 11:25 AM CDT Specimen Anatomical Collection Method Collection Time Receive d Time (Source) Location / / Volume Laterality Blood (Blood, 01/26/2022 11:16 01/26/2022 Venous) AM CDT 11:22 AM CDT Gerda Hull M.D., M.S. LAB BLOOD ADD-ON Performing Organization Address City/State/ZIP Code Phon e Number [facility] - [address] [place], [place] [address] [facility] [place] [address] Laboratories-[facility] [address] Transfuse Emergency Released Red Blood Cells (Uncrossmatched) (01/26/2022 9:59 AM CDT) Darrick CheryB.S. BLOOD TRANSFUSION ORDERABLES Transfuse Emergency Released Red Blood Cells (Uncrossmatched) : 1 Units (01/26/2022 9:59 AM CDT) Darrick LewisBSumaB.S. BLOOD TRANSFUSION ORDERABLES Transfuse Fresh Frozen Plasma :INR >2: Invasive proc scheduled; 180 mL/hr (01/26/2022 7:58 AM CDT) Darrick LewisBSumaB.S. BLOOD TRANSFUSION ORDERABLES ECG 12 Lead (01/26/2022 5:05 AM CDT) P athologist Signature Ventricular Rate 96 BPM MUSE ECG/Min FL Interval 166 ms MUSE QRSD Interval 88 ms MUSE QT Interval 364 ms MUSE QTC Interval 460 ms MUSE P [place] 56 degrees MUSE R [place] 50 degrees MUSE T Wave [place] 32 degrees MUSE Specimen Anatomical Collection Method [...] Silver M.D. ECG ORDERABLES Performing Organization Address City/[facility]/ZIP Code Phon e Number MUSE MUSE NA (ABNORMAL) Prothrombin Time (PT) (01/26/2022 4:53 AM CDT) [facility] Method Time Signature Prothrombin 28.3 [...] Organization Address City/State/ZIP Code Phon e Number [facility] - 200 [place], [place] [address] [facility] [place] [address] Laboratories-[facility] 200 [facility] (ABNORMAL) Basic Metabolic Panel (01/26/2022 4:53 [...] Santillan LAB BLOOD ADD-ON Performing Organization Address City/State/[facility] Code Phon e Number [facility] - [address] [place] [address] [facility] [place] [address] Laboratories-[facility] 200 [facility] (ABNORMAL) CBC with Differential, Blood (01/26/2022 4:53 AM CDT) [facility] Method Time Signature Hemoglobin 6.3 (L) 11.6 [...] Organization Address City/State/ZIP Code Phon e Number [facility] - [address] [place] [address] [facility] [place] [address] Laboratories-[address] Type and Screen (with reflex Antibody ID) (01/26/2022 4:48 AM CDT) [facility] gist Method Time Signature ABORh B Pos Not 01/26/2022 STRM applicable 9:18 AM CDT Antibody Negative Negative 01/26/2022 STRM Screen 9:34 AM CDT Type & Screen 01/29/2022 01/26/2022 STRM Expiration 23:59 9:18 AM CDT Testing [place] DEFAULT 01/26/2022 STRM Location 8:55 AM CDT Specimen Anatomical Collection Method Collection Time Receive d Time (Source) Location / / Volume Laterality Blood (Blood, 01/26/2022 4:48 AM 01/27/20 22 8:55 Venous) CDT AM CDT Darrick DanielS. LAB BLOOD BANK TEST ORDERABL ES Performing Organization Address City/[facility] Phon e Number [facility] - [address] [place], [place] [address] [place] [address] Laboratories-[facility] 200 [address] [facility] HIV-1/-2 Ag and Ab Screen, Plasma (01/25/2022 3:36 PM CDT) P athologist Signature HIV-1/-2 Ag Negative Negative 01/26/2022 [facility] and Ab Screen, 11:53 AM CDT [...] Organization Address City/State/ZIP Code Phon e Number [facility] [address] [place], [place] [address] [place] [address] [facility] [address] [place] Transfuse Red Blood Cells : (01/25/2022 1:08 PM CDT) Darrick Santillan BLOOD TRANSFUSION ORDERABLES Transfuse Red Blood Cells : , 1 Units (01/25/2022 1:08 PM CDT) Darrick DanielSSuma BLOOD TRANSFUSION ORDERABLES (ABNORMAL) AST [...] Santillan LAB BLOOD ADD-ON Performing Organization Address City/[facility]/ZIP Code Phon e Number [facility] - [address] [place] [address] 05 [facility] [place], [place] [id number] [place] [address] (ABNORMAL) CBC with Differential, Blood (01/25/2022 5:35 AM CDT) [facility] gist Method Time Signature Hemoglobin 6.2 [...] Organization Address City/State/ZIP Code Phon e Number [facility] - 200 [place], [place] [address] [facility] [place] [place] [address] (ABNORMAL) Basic Metabolic Panel (01/25/2022 5:35 AM [...] Organization Address City/State/ZIP Code Phon e Number [facility] - [address] [place], [place] [address] [facility] [place] [address] Laboratories-[facility] [address] (ABNORMAL) Haptoglobin (01/25/2022 5:35 AM CDT) athologist Signature Haptoglobin, S <14 (L) 30 - 200 01/26/2022 [facility] mg/dL 10:51 AM CDT Specimen Anatomical Collection Method Collection Time Receive d Time (Source) Location / / Volume Laterality Blood 01/25/2022 5:35 AM 6:58 CDT AM CDT Darrick Santillan LAB BLOOD ADD-ON Performing Organization Address City/State/ZIP Code Phon e Number [facility] [address] [place], [place] [address] [facility] [place] [address] [place] LD (Lactate Dehydrogenase) (01/25/2022 5:35 AM CDT) [facility] LD 197 122 - 222 01/25/2022 DTL U/L 6:35 AM CDT Specimen Anatomical Collection Method Collection Time Receive d Time (Source) Location / / Volume Laterality Blood (Blood, 01/25/2022 5:35 AM 01/26/20 22 6:18 Venous) CDT AM CDT Darrick Santillan LAB BLOOD NON ADD-ON Performing Organization Address City/State/ZIP Code Phon e Number [facility] - [address] [place] [address] 05 [facility] [place] [address] Laboratories-[facility] [address] (ABNORMAL) SPSMA Result (01/25/2022 5:35 AM CDT) Analysis Performed At [facility] Neutrophilic Segs 74 50 - 75 % [...] Reviewed by: Ruth 01/25/2022 7:03 AM CDT [facility] Specimen Anatomical Collection Method Collection Time Receive d Time (Source) Location / / Volume Laterality Blood (Blood, 01/25/2022 5:35 AM 01/26/20 5:57 Venous) CDT AM CDT Darrick DanielSSuma LAB BLOOD ADD-ON Performing Organization Address City/[facility] Phon e Number [facility] - [facility] [address] [place], [place] [address] [place] [address] Laboratories-[facility] 200 [facility] (ABNORMAL) Prothrombin Time (PT) (01/25/2022 5:35 [...] DanielSSuma LAB BLOOD ADD-ON Performing Organization Address City/[facility] Phon e Number [facility] - [facility] [address] [place], [place] [address] [facility] [place] [address] Laboratories-[facility] [address] [facility] Magnesium (01/25/2022 5:30 AM CDT) P athologist Signature Magnesium, S 1.9 1.7 - 2.3 01/25/2022 DTL mg/dL 5:21 PM CDT Specimen Anatomical Collection Method Collection Time Receive d Time (Source) Location / / Volume Laterality Blood (Blood, 01/25/2022 5:30 AM 01/26/20 5:06 Venous) CDT PM CDT Darrick Santillan LAB BLOOD ADD-ON Performing Organization Address City/State/[facility] Code Phon e Number [facility] - [address] [place] [address] 05 [facility] [place], [place] [id number] [place] [address] Direct Antiglobulin Test (Poly) (01/25/2022 5:30 AM CDT) [facility] Monkey [employer] Method Time Signature Direct Negative Negative 01/25/2022 [facility] Antiglobulin 1:15 PM CDT Test, Polyspecific Specimen Anatomical Collection Method Collection Time Receive d Time (Source) Location / / Volume Laterality Blood (Blood, 01/25/2022 5:30 AM 01/26/20 Venous) CDT 11:46 AM CDT Darrick Santillan LAB BLOOD BANK TEST ORDERABL ES Performing Organization Address City/[facility] Phon e Number [facility] - [address] [place] [address] [facility] [address] (ABNORMAL) Reticulocytes (01/25/2022 5:30 AM CDT) [facility] Monkey [employer] Method Time Signature Reticulocytes, B 6.67 (H) 0.60 - 01/25/2022 DTL 2.71 % 9:18 AM CDT Absolute 114.1 (H) 30.4 - 01/25/2022 DTL Reticulocyte 110.9 9:18 AM CDT x10(9)/L Specimen Anatomical Collection Method Collection Time Receive d Time (Source) Location / / Volume Laterality Blood (Blood, 01/25/2022 5:30 AM 01/26/20 9:03 Venous) CDT AM CDT Darrick Santillan LAB BLOOD ADD-ON Performing Organization Address City/[facility] Phon e Number [facility] - [address] [place] [address] [address] [facility] [place], [place] [id number] [place] [address] (ABNORMAL) Dipstick, Urine (01/24/2022 3:32 PM CDT) [facility] gist Method Time Signature Hemoglobin, Small (A) [...] M.D. LAB URINE ORDERABLES Performing Organization Address City/[facility] Phon e Number [facility] [address] Osmolality, Urine (01/24/2022 3:32 PM CDT) athologist Signature Osmolality, U 434 150 - 1150 01/24/2022 DTL mOsm/kg 4:29 PM CDT Specimen Anatomical Collection Method Collection Time Receive d Time (Source) Location / / Volume Laterality Urine 01/24/2022 3:32 PM 2 3:59 CDT PM CDT Yue Silver M.D. LAB URINE ORDERABLES Performing Organization Address City/[facility] Phon e Number [facility] [address] pH, Random, Urine (01/24/2022 3:32 PM CDT) P athologist Signature pH, Random, U 6.0 4.5 - 8.0 01/24/2022 DTL 4:29 PM CDT Specimen Anatomical Collection Method Collection Time Receive d Time (Source) Location / / Volume Laterality Urine 01/24/2022 3:32 PM 09/24/202 2 3:59 CDT PM CDT Yue Silver M.D. LAB URINE ORDERABLES Performing Organization Address City/[facility] Code Phon e Number [facility] - [address] [place], [place] [address] [place] [address] [place] [address] Laboratories-[address] (ABNORMAL) Microscopic Manual (01/24/2022 3:32 PM [...] M.D. LAB URINE ORDERABLES Performing Organization Address City/[facility] Phon e Number [facility] - [address] [place], [place] [address] [facility] [place] [address] Laboratories-[address] Creatinine, Random, Urine (01/24/2022 3:32 PM CDT) athologist Signature Creatinine, 60 16 - 326 01/24/2022 DTL Random, U mg/dL 4:50 PM CDT Specimen Anatomical Collection Method Collection Time Receive d Time (Source) Location / / Volume Laterality Urine (Urine, 01/24/2022 3:32 PM 01/25/20 22 3:59 Midstream) CDT PM CDT Yue Silver M.D. LAB URINE ORDERABLES Performing Organization Address City/[facility]/ZIP Code Phon e Number [facility] - [address] [place] [address] Sodium, Random, Urine (01/24/2022 3:32 PM [...] M.D. LAB URINE ORDERABLES Performing Organization Address City/[facility] Phon e Number [facility] - [address] [place] [address] (ABNORMAL) Urinalysis with Microscopic: Urine, Midstream (01/24/2022 3:32 PM CDT) Patholo gist Method [...] M.D. LAB URINE ORDERABLES Performing Organization Address City/[facility] Phon e Number [facility] - [address] [place], [place] [address] [facility] [place] [address] Laboratories-[address] (ABNORMAL) Bilirubin, Total (01/24/2022 1:35 PM CDT) P athologist Signature Bilirubin, 11.9 (H) <=1.2 01/24/2022 DTL Total, P mg/dL 2:33 PM CDT Specimen Anatomical Collection Method Collection Time Receive d Time (Source) Location / / Volume Laterality Blood 01/24/2022 1:35 PM 2 1:35 CDT PM CDT Darrick Santillan LAB BLOOD ADD-ON Performing Organization Address City/[facility] Phon e Number [facility] - [address] [place], [place] [address] [place] [address] Laboratories-[address] (ABNORMAL) CBC without Differential (01/24/2022 5:22 [...] Organization Address City/State/ZIP Code Phon e Number [facility] - [address] [place], [place] [address] [facility] [place] [place] [address] Laboratories-[facility] 200 [facility] (ABNORMAL) Basic Metabolic Panel (01/24/2022 5:22 [...] Organization Address City/State/ZIP Code Phon e Number [facility] - [address] [place], [place] [address] [facility] [place] [address] Laboratories-[address] (ABNORMAL) Bilirubin, Direct (01/24/2022 5:17 AM CDT) athologist Signature Bilirubin, 5.1 (H) 0.0 - 0.3 01/24/2022 DTL Direct, S mg/dL 2:40 PM CDT Specimen Anatomical Collection Method Collection Time Receive d Time (Source) Location / / Volume Laterality Blood (Blood, 01/24/2022 5:17 AM 01/25/20 1:52 Venous) CDT PM CDT Darrick Santillan LAB BLOOD ADD-ON Performing Organization Address City/[facility] Code Phon e Number [facility] - [address] [place], [place] [address] [place] [address] Laboratories-[address] (ABNORMAL) Cystatin C with Estimated GFR (01/24/2022 5:17 AM CDT) athologist [facility] eGFR by 33 (L) >60 01/24/2022 DT [...] 22 7:33 Venous) CDT AM CDT Darrick Santillan LAB BLOOD ADD-ON Performing Organization Address City/State/ZIP Code Phon e Number [facility] - [address] [place] [address] [facility] [place] [address] [facility] [address] [facility] Upper GI Endoscopy (01/23/2022 3:35 PM CDT) Specimen (Source) Anatomical Collection Method Collection Time Re ceived Time Location / / Volume Laterality 01/23/2022 3:[address] [facility] 01/23/2022 4:08 PM CDT Post-op [...] examination. ? - No specimens collected. Narrative [facility] - 01/23/2022 4:08 PM CDT Otto 6 [...] M.D. GI PROCEDURE ORDERABLES Performing Organization Address City/[facility]/ZIP Code Phon e Number [facility] NA (ABNORMAL) Prothrombin Time (PT) (01/23/2022 10:58 AM CDT) [facility] Method Time Signature Prothrombin 29.9 (H) 9.4 [...] Venous) AM CDT 11:22 AM CDT Anthony CheryB.SSuma LAB BLOOD ADD-ON Performing Organization Address City/[facility]/ZIP Code Phon e Number [facility] - [address] [place], [place] [address] [facility] [place] [address] Laboratories-[address] (ABNORMAL) Prothrombin Time (PT) (01/23/2022 10:58 AM CDT) [facility] Method Time Signature Prothrombin 31.5 (H) 9.4 [...] CheryB.S. LAB BLOOD ADD-ON Performing Organization Address City/[facility]/ZIP Code Phon e Number [facility] - [address] [place], [place] [address] [facility] [place] [address] Laboratories-[address] (ABNORMAL) Basic Metabolic Panel (01/23/2022 5:27 [...] Phon e Number [facility] - [address] [place] [address] 05 [facility] [place] [place] [address] [facility]-[address] (ABNORMAL) CBC with Differential, Blood (01/23/2022 5:27 AM CDT) Patholo gist Method Time Signature Hemoglobin 7.1 (L) [...] Organization Address City/State/ZIP Code Phon e Number [facility] - [address] [place], [place] [address] [facility] [place] [place] [address] Laboratories-[facility] [address] (ABNORMAL) Ammonia (01/23/2022 5:27 AM CDT) athologist Signature Ammonia, P 109 (H) <=30 01/23/2022 DTL mcmol/L 6:11 AM CDT Specimen Anatomical Collection Method Collection Time Receive d Time (Source) Location / / Volume Laterality Blood (Blood, 01/23/2022 5:27 AM 01/24/20 5:41 Venous) CDT AM CDT Sree Little M.D. LAB BLOOD NON ADD-ON Performing Organization Address City/[facility] Phon e Number [facility] - [address] [place], [place] [address] [address] [facility] [place] [address] Laboratories-[address] (ABNORMAL) Hemoglobin (01/22/2022 10:18 PM CDT) athologist Signature Hemoglobin 7.5 (L) 11.6 - 15.0 01/22/2022 DTL g/dL 10:47 PM CDT Specimen Anatomical Collection Method Collection Time Receive d Time (Source) Location / / Volume Laterality Blood (Blood, 01/22/2022 10:18 01/22/2022 Venous) PM CDT 10:34 PM CDT Sree Little M.D. LAB BLOOD ADD-ON Performing Organization Address City/[facility] Phon e Number [facility] - [address] [place], [place] [address] [address] [place] [address] Laboratories-[address] Transfuse Red Blood Cells : (01/22/2022 [...] Organization Address City/State/ZIP Code Phon e Number [facility] - [address] [place], [place] [address] [place] [address] [facility] [address] [facility] (ABNORMAL) CBC with Differential, Blood (01/22/2022 9:40 AM CDT) [facility] gist Method Time Signature Hemoglobin 6.0 [...] Organization Address City/State/ZIP Code Phon e Number [facility] - [address] [place], [place] [address] [facility] [place] [address] Laboratories-[facility] [address] Type and Screen (with reflex Antibody ID) (01/22/2022 9:39 AM CDT) [facility] gist Method Time Signature ABORh [...] Organization Address City/State/ZIP Code Phon e Number [facility] - [address] [place] [address] 05 [place] [address] [facility] [address] [facility] (ABNORMAL) CBC with Differential, Blood (01/22/2022 9:39 AM CDT) [facility] Method Time Signature Hemoglobin 6.2 (L) [...] M.D. LAB BLOOD ADD-ON Performing Organization Address City/[facility] Phon e Number [facility] - [address] [place], [place] [address] [facility] [place] [address] Laboratories-[facility] 200 [facility] (ABNORMAL) Prothrombin Time (PT) (01/22/2022 5:22 AM CDT) [facility] gist Method Time Signature Prothrombin 31.0 [...] M.D. LAB BLOOD ADD-ON Performing Organization Address City/State/[facility] Code Phon e Number [facility] - [address] [place], [place] [address] [facility] [place] [place] [address] Laboratories-[address] US Paracentesis with Imaging Guidance (01/21/2022 10:49 AM CDT) Anatomical Region Laterality Modality Abdomen, Ultrasound RST LOS, Ultrasound ARZ LOS, Procedure F LA N/A Ultrasound LOS, Abdominal FLA LOS, Procedural Specimen (Source) Anatomical Collection Method Collection Time Re ceived Time Location / / Volume Laterality 01/21/2022 10:27 AM CDT Impressions 01/21/2022 11:13 AM CDT Ultrasound-guided paracentesis. [employer] Narrative 01/21/2022 11:13 AM CDT EXAM: US [...] met. POST-PROCEDURE DIAGNOSIS: Ascites. IMPRESSION: Ultrasound-guided paracentesis. [employer] Matthew Becerril M.D. IMG US PROCEDURES Protein, Total, Body Fluid (01/21/2022 10:00 AM CDT) athologist Signature Protein, 0.5 See Comment 01/21/2022 [...] ical findings. All other fluids refer to [email or web address] for further inter pretive information. This test has been modified from the research laboratory technician's instructions. Its perform ance characteristics were determined by [facility] in a manner consistent with CLIA [...] Organization Address City/State/ZIP Code Phon e Number [facility] - [address] [place], [place] [address] [facility] [place] [address] Laboratories-[facility] [address] Cell Count and Differential, Body Fluid (01/21/2022 10:00 AM CDT) Patholo gist Method Time Signature Fluid Type Peritoneal- [...] Its performance characteri stics were determined by [facility] in a manner co nsistent with [...] Organization Address City/State/ZIP Code Phon e Number [facility] - [address] [place], [place] [address] [place] [address] Laboratories-[facility] [address] Bacterial Culture, Aerobic + Susc (01/21/2022 10:00 AM CDT) [facility] gist Method Time Signature Bacterial No growth 01/26/2022 DTL Culture, after 5 7:48 AM CDT Aerobic + Susc days of incubation. Specimen Anatomical Collection Method Collection Time Receive d Time (Source) Location / / Volume Laterality Fluid 01/21/2022 10:00 01/21/2022 (Peritoneal AM CDT 11:52 AM CDT Fluid) Comment: Specimen Source Site: Fluid Narrative [facility] - [facility] - 01/26/2022 7:48 AM CDT Bacterial Culture: Received Bactec aerob ic and Bactec anaerobic bottles Matthew Becerril M.D. LAB MICROBIOLOGY - GENERAL O RDERABLES Performing Organization Address City/State/ZIP Code Phon e Number [facility] - [address] [place] [address] 05 [facility] [place] [place] [address] Laboratories-[facility] [address] [facility] (ABNORMAL) Comprehensive Metabolic Panel (01/21/2022 7:25 [...] Organization Address City/State/ZIP Code Phon e Number [facility] - [address] [place] [address] 05 [facility] [place] [address] [facility] 200 [facility] (ABNORMAL) Cystatin C with Estimated GFR (01/21/2022 7:25 AM CDT) athologist Signature eGFR by 27 (L) >60 [...] Organization Address City/State/ZIP Code Phon e Number [facility] - [address] [place], [place] [address] [facility] [place] [place] [address] [facility] [address] [facility] (ABNORMAL) CBC with Differential, Blood (01/21/2022 7:25 AM CDT) [facility] Method Time Signature Hemoglobin 6.7 (L) 11.6 [...] Organization Address City/State/ZIP Code Phon e Number [facility] - [address] [place], [place] [address] [address] [place], [place] [address] [place] [address] [address] [facility] (ABNORMAL) Iron and Total Iron-Binding Capacity [...] Organization Address City/State/ZIP Code Phon e Number [facility] - [address] [place], [place] [address] [place] [id number] [place] [address] [address] [facility] (ABNORMAL) Ferritin (01/21/2022 7:21 AM CDT) athologist Signature Ferritin, S 564 (H) 11 - 307 01/22/2022 DTL mcg/L 5:18 PM CDT Specimen Anatomical Collection Method Collection Time Receive d Time (Source) Location / / Volume Laterality Blood (Blood, 01/21/2022 7:21 AM 01/23/20 4:23 Venous) CDT PM CDT Sree Little M.D. LAB BLOOD ADD-ON Performing Organization Address City/State/ZIP Code Phon e Number [facility] - [address] [place], [place] [address] [address] [place] [address] [place] [address] [address] [facility] (ABNORMAL) Hepatic Function Panel (01/21/2022 2:40 AM [...] M.D. LAB BLOOD ADD-ON Performing Organization Address City/[facility]/ZIP Code Phon e Number [facility] - [address] [place] [address] [facility] [address] Lipase (01/21/2022 2:40 AM CDT) P athologist Signature Lipase, S 26 13 - 60 U/L 01/21/2022 3:23 DTL AM CDT Specimen Anatomical Collection Method Collection Time Receive d Time (Source) Location / / Volume Laterality Blood (Blood, 01/21/2022 2:40 AM 01/22/20 22 3:05 Venous) CDT AM CDT Cody Knight M.D. LAB BLOOD ADD-ON Performing Organization Address City/[facility]/ZIP Code Phon e Number [facility] - [address] [place] [address] Laboratories-[facility] [address] Abdomen Pelvis without IV Contrast (01/20/2022 [...] are new since 11/25/2021. Cody Knight M.D. [facility] PROCEDURES (ABNORMAL) Dipstick, POCT, Urine (01/20/2022 9:05 PM CDT) [facility] gist Method Time Signature Glucose, Negative Negative 01/20/2022 [facility] POCT, U mg/dL 9:06 PM CDT Ketone, POCT, Trace (A) Negative 01/20/2022 [facility] U mg/dL 9:06 PM CDT Specific 1.015 1.005 - 01/20/2022 [facility] [place], 1.030 9:06 PM CDT POCT, U Blood, [...] [facility] [address] [place] [address] OUTPATIENT LABS PCED [facility] [place] [address] [facility] [address] (ABNORMAL) Dipstick, Urine (01/20/2022 8:57 PM CDT) [facility] gist Method Time Signature Hemoglobin, Negative [...] M.D. LAB URINE ORDERABLES Performing Organization Address City/[facility]/ZIP [facility] Phon e Number [facility] - [address] pH, Urine (01/20/2022 8:57 PM CDT) athologist Signature pH, U 5.5 4.5 - 8.0 01/20/2022 9:48 DTL PM CDT Specimen Anatomical Collection Method Collection Time Receive d Time (Source) Location / / Volume Laterality Urine 01/20/2022 8:57 PM 2 9:23 CDT PM CDT Cody Knight M.D. LAB URINE ORDERABLES Performing Organization Address City/State/ZIP Code Phon e Number [facility] - [address] [place] [address] [place] [address] Osmolality, Urine (01/20/2022 8:57 PM CDT) P athologist Signature Osmolality, U 401 150 - 1150 01/20/2022 DTL mOsm/kg 9:48 PM CDT Specimen Anatomical Collection Method Collection Time Receive d Time (Source) Location / / Volume Laterality Urine 01/20/2022 8:57 PM 2 9:23 CDT PM CDT Cody Knight M.D. LAB URINE ORDERABLES Performing Organization Address City/State/ZIP Code Phon e Number [facility] - [address] [place], [place] [address] [address] [place], [place] [id number] [place] [address] Microscopic Automated (01/20/2022 8:57 PM CDT) P [...] M.D. LAB URINE ORDERABLES Performing Organization Address City/[facility]/ZIP Code Phon e Number [facility] - [address] [place], [place] [address] [place] [address] Gram Stain, Urine (01/20/2022 8:57 PM CDT) [facility] Method Time Signature Source Urine, 01/20/2022 DTL Urine, 9:22 PM CDT Straight Catheter Gram Stain, U Negative Negative 01/20/2022 DT 10:25 PM CDT Specimen Anatomical Collection Method Collection Time Receive d Time (Source) Location / / Volume Laterality Urine 01/20/2022 8:57 PM 2 9:22 CDT PM CDT Cody Knight M.D. LAB URINE ORDERABLES Performing Organization Address City/[facility]/ZIP Code Phon e Number [facility] - [address] [place], [place] [address] [place] [address] Bacterial Culture, Aerobic + Susc, Urine (01/20/2022 8:57 PM CDT) [facility] Method Time Signature Urine Culture No growth 01/22/2022 DTL after 1 day 6:31 AM CDT of incubation. Specimen Anatomical Collection Method Collection Time Receive d Time (Source) Location / / Volume Laterality Urine (Urine, 01/20/2022 8:57 PM 01/21/20 Straight CDT 10:31 PM CDT Catheter) Comment: Specimen Source Site: Urine Cody Knight M.D. LAB MICROBIOLOGY - GENERAL O RDERABLES Performing Organization Address City/[facility] Code Phon e Number [facility] - [address] Urinalysis with Microscopic: Urine, Straight Catheter (01/20/2022 8:57 PM CDT) Patholo gist Method [...] Laterality Urine (Urine, 01/20/2022 8:57 PM 01/21/20 22 9:22 Straight CDT PM CDT Catheter) Cody Knight M.D. LAB URINE ORDERABLES Performing Organization Address City/[facility]/ZIP Code Phon e Number [facility] - [address] (ABNORMAL) Venous Blood Gas and Electrolytes [...] POCT ORDERABLES - DEVICE Performing Organization Address [facility]/ZIP [facility] Phon e Number POC [facility] IN[facility]IENT [address] [place], [place] [address] [place] [address] [facility] [address] Lactate, POCT (01/20/2022 8:51 [...] POCT ORDERABLES - DEVICE Performing Organization Address [facility] Phon e Number POC [facility] [address] [place] [address] [place] [address] [place] [facility] [address] hCG (Human Chorionic Gonadotropin), Quantitative, (01/20/2022 8:49 PM CDT) athologist Signature HCG, 0.5 <5 IU/L 01/20/2022 [facility] Quantitative, 9:19 PM CDT , P Specimen Anatomical Collection Method Collection Time Receive d Time (Source) Location / / Volume Laterality Blood (Blood, 01/20/2022 8:49 PM 01/21/20 22 9:01 Venous) CDT PM CDT Cody Knight M.D. LAB BLOOD ADD-ON Performing Organization Address City/[facility]/ZIP Code Phon e Number [facility] - [address] [place], [place] [address] [place] [address] [facility] [address] Lactate, POCT (01/20/2022 8:49 PM CDT) Analysis Performed At [facility] Lactate, POCT Collected DEFAULT 01/20/2022 SMLX 8:49 PM CDT Specimen Anatomical Collection Method Collection Time Receive d Time (Source) Location / / Volume Laterality Blood (Blood, 01/20/2022 8:49 PM 01/21/20 8:49 Venous) CDT PM CDT Cody Knight M.D. LAB POCT ORDERABLES - DEVICE Performing Organization Address [facility] Phon e Number [facility] - [address] [place], [place] [address] [place] [address] Laboratories-[address] Venous Blood Gas and Electrolytes CG8+, POCT (01/20/2022 8:49 PM CDT) Analysis Performed At [facility] VBG & Lytes Collected DEFAULT 01/20/2022 SMLX CG8+, POCT, B 8:49 PM CDT Specimen Anatomical Collection Method Collection Time Receive d Time (Source) Location / / Volume Laterality Blood (Blood, 01/20/2022 8:49 PM 01/21/20 8:49 Venous) CDT PM CDT Cody Knight M.D. LAB POCT ORDERABLES - DEVICE Performing Organization Address City/[facility] Phon e Number [facility] - [address] [place], [place] [address] [place] [address] Laboratories-[address] (ABNORMAL) Basic Metabolic Panel (01/20/2022 8:49 PM CDT) Analysis Performed At [facility] Time [facility] Potassium, P 5.2 3.6 - 5.2 01/20/2022 [...] M.D. LAB BLOOD ADD-ON Performing Organization Address City/State/[facility] Code Phon e Number [facility] - [address] [place], [place] [address] [place] [address] Laboratories-[facility] [address] [facility] documented in this encounter Visit Diagnoses [...] RSumaN.) 0831 (Given - Provider: Bere Garcia R.N.) 0900 (Giv en - Provider: Stacie Sullivan R.N.) 25 mcg, oral, Daily, First dose on Wed at 0900, cholecalciferol (vitamin D3) orderable was interchanged for cholecalciferol (vitamin D3) tablet/capsule ciprofloxacin tablet 500 mg (CIPRO) 0624 (Given - Prov ider: Payam Sandoval R.N.) 0641 (Given - Provider: Humera Sifuentes R.N.) 0620 (Given - Provider: Gi Fitzpatrick R.N.) 500 mg, oral, Daily before breakfast, [...] (Not Giv en - Provider: Marla Kelly R.N. - Reason: Other)1349 (Not Given - Provider: Juliana Larson RSumaNSuma - Reason: Patient/family refused)1730 (Not Given - Provider: Katina Contreras R.N. - Reason: Patient/family refused) 0832 (Given - Provider: Vanessa Rudolph)1200 (Given - Provider: Bere Garcia RSumaNSuma)1653 (Not Given - Provider: Bere Garcia R.N. - Reason: Patient/family refused) 0904 (Given - Provider: Stacie Sullivan R.N.)1200 (Due) 2 g, topical, 4 times daily, First dose on Wed01/21/22 at 0800, Do not exceed 32 g per day, over all affected joints. Use dosing card to measure product. 2 g = 2.25 inches, 4 gm = 4.5 inches. Rinse dosi 231 (Given - Provider: Rochelle Locke RSumaNSuma) 2111 (Not Given - Provider: Gi rodney R.NSuma - Reason: Patient/family refused) ng card after [...] 0814 (Given - Prov ider: Marla Kelly RSumaNSuma)1349 (Not Given - Provider: Juliana Larson R.NSuma - Reason: Patient/family refused)1650 (Given - Provider: Katina Contreras RSumaNSuma)210 (Given - Provider: Chano Ying, R.N.) 0831 (Given - Provider: Bere Garcia R.N.)1157 (Given - Provider: Bere Garcia R.N.)1650 (Given - Provider: Bere Garcia R.N.)211 (Given - Provider: Gi Fitzpatrick RSumaNSuma) 0859 (Given - Provider: Stacie Sullivan R.N.)1200 (Due) 20 g, oral, 4 times daily, First dose (a fter last modification) on Wed01/26/22 at 1700 lidocaine 5 % 1 patch (LIDODERM) 0813 (Medication Appl ied - Provider: Marla Kelly R.N.)2104 (Medication Removed - Provider: Chano Ying, R.NSuma) 1655 (Medication Applied - Provider: Alan Garcia [...] 0814 (Given - Provid er: Marla Kelly R.N.)2101 (Given - Provider: Chano Ying, R.NSuma) 0832 (Given - Provider: Bere Garcia R.N.)2110 (Given [...] 0832 (Given - Provider: Bere Garcia R.N.) 899 (Given - Provider: Stacie Sullivan R.N.) 50 mg, oral, Daily, First dose (after last modificatio n) on Wed01/28/22 at 0900 thiamine tablet 100 mg (VITAMIN B1) 0815 (Given - Prov ider: Marla Kelly R.N.) 0831 (Given - Provider: Bere Garcia R.N.) 899 (Giv en - Provider: Stacie Sullivan R.N.) 100 mg, oral, Daily, First dose on Wed01/21/22 at 0900 traZODone tablet 50 mg (DESYREL) 2100 (Given - Provide r: Chano Ying, R.NSuma) 2111 (Given - Provider: Vanessa CliftonSumaNSuma) 50 mg, oral, Daily at bedtime, First [...] 0815 (Given - Pr ovider: Marla Kelly RSumaNSuma) 0831 (Given - Provider: [...] mg (FLEXERIL) 1149 (Given - P rovider: Paz Velasquez RSumaNSuma)2101 (Given - Provider: Chano Ying, R.N.) 0150 (Given - Provider: Humera Sifuentes RGabby) 5 mg, oral, Daily PRN, muscle spasms, Starting on Wed01/21/22 at 0605 fentaNYL injection 25 mcg (SUBLIMAZE) (CANCELED) 0453 (Given - Provider: Payam Sandoval RSmuaNSuma) 25 mcg, intravenous, Every 2 min PRN, mo derate pain or score 4-6 of 10, severe pain or score 7-10 of 10, Starting on Wed01/26/22 at 1657, PACU (only), Up to maximum total dose of 200 mcg HYDROmorphone tablet 1 mg (DILAUDID) (CANCELED) 0030 ( Given - Provider: Andrew FreemanNSuma)0814 (Given - Provider: Marla Kelly RSumaNSuma) 1 mg, oral, Every 6 hours PRN, moderate pain or score 4-6 of 10, severe pain or score 7-10 of 10, Starting on Wed01/25/22 at 1332, For severe pain, only after trying lidocaine, heat, conservative management HYDROmorphone tablet 1 mg (DILAUDID) (CANCELED) 1622 ( Given - Provider: Katina Contreras RSumaNSuma) 1200 (Given - Provider: Andrew RudolphNSuma) 1 mg, oral, Every 24 hours PRN, moderate pain or score 4-6 of 10, severe pain or score 7-10 of 10, Starting on Wed01/27/22 at 1330, For severe pain, only after trying lidocaine, heat, conservative management HYDROmorphone tablet 1 mg (DILAUDID) (CANCELED) 1650 (Given - Provider: Bere Garcia R.N.)2111 (Given - Provider: Gi Fitzpatrick R.N.) 0537 (Given - Provider: Gi Fitzpatrick R.N.)0856 (Given - Provider: Stacie Sullivan R.N.) 1 mg, oral, Every 4 hours [...] lozenge 1341 (Given - Provider: Paz burciaga RSumaNuSma) 1 lozenge, oral, As needed, sore throat, [...] documented as of this encounter Care Teams Assembler Wet Wash Relationship Specialty Start Date End Date Ana Red P.A.-C. PCP - General Internal Medicine 12/01/[address] [place] [phone] [facility]- [place] lab 08/25/21 Ervin Schroeder MD Referring Provider Family Medicine 03/24/[address] [place] [phone] documented as of this encounter
--- OUTSIDE RECORDS SUMMARY | 2022-02-12 20:21 | XMS_ITS | Encounter Summary ---
:1990 Author Organization [facility] Address [address] [place] [address] Care Team Providers Name Role Phone Ana Red P.A.-C. Primary Care Provider [phone] Reason for Visit Transplant (Routine) - Authorized Specialty Diagnoses / Procedures Referred By Contact Refer red To Contact Transplant Surgery / Matthew Jerome [facility] Transplant Elizabeth.BSumaBLilian Bedolla [address] [place] [phone] Referral ID Status Reason Start Date Expiration Date Visits V isits Requested Authorized [id number] Authorized 10/27/2021 10/27/2022 1 1 Encounter Details Date Type Department Care Team Description 01/28/2022 Virtual Visit Matthew Valenzuela Can celed (Patient: Center for M.BSumaBLilian Bedolla Hospitalized / ill) Transplantation and [address] [place] [address] in [place], [place] [address] [address] [facility] [phone] [place] [address] (Work) [phone] Social History Tobacco Use Types Packs/Day Years [...] you attend scientology or Patient refused 2021 tenriism services? 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 [address] [place] [phone] Virtual Visit Transplant LuisMatthew abdul 2 Y MSumaB.BLilian Bedolla [address] [place] [phone] Office Visit Gastroenterology and Matthew Jerome 2 Hepatology Vik RodriguezBLilian Bedolla [address] [place] [phone] Appointment Radiology LuisNew abdular 2 YJoshuaB.B.Lilian [place] [address] [place] [phone] Hospital Gastroenterology and Matthew Jerome Cirrhos is Alcoholic (HCC) 2 Encounter Hepatology Joshua RodriguezB.BLilian Bedolla [address] [place] [phone] Anesthesia Event Gastroenterology and Rl, 2 Hepatology Ervin Burgos M.D. 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 PCP - General Internal Medicine 12/01/[address] [place] [phone] [facility]- [place] lab 08/25/21 Ervin Schroeder MD Referring Provider Family Medicine 03/24/[address] [place] [phone] documented as of this encounter
--- OUTSIDE RECORDS SUMMARY | 2022-02-12 20:21 | XMS_ITS | Encounter Summary ---
:1990 Author Organization [facility] Address [address] [place] [address] Care Team Providers Name Role Phone Ana Red P.A.-C. Primary Care Provider [phone] Encounter Details Date Type Department Care Team Description 01/27/2022 Orders Only Pharmacy Prior Auth RO Yolande Evi Loretta [phone] Social History Tobacco Use Types Packs/Day Years [...] attend oriental orthodox or Patient refused 2021 rastafari services? 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 [address] [place] [phone] Appointment Gastroenterology and Adrianne, 2 Hepatology Yue Burciaga M.D. [address] [place] [phone] Virtual Visit Transplant Matthew Jerome 2, M.B.B.S., M.D. [address] [place] [phone] Office Visit Gastroenterology and Matthew Jerome 2 Hepatology Y, Lilian Santillan [address] [place] [phone] Appointment Radiology [facility] 2 YTyrell M.D. [address] [place] [phone] Hospital Gastroenterology and [facility] Cirrhos is Alcoholic (HCC) 2 Encounter Hepatology Tyrell Rodriguez M.D. [address] [place] [phone] Anesthesia Event Gastroenterology and [facility], 2 Hepatology Ervin Burgos M.D. [address] [place] [address] [phone] Surgery Gastroenterology and [facility] ESOPHAG OGASTRODUODENOSCOPY 2 Hepatology Tyrell Rodriguez M.D. [address] [place] [phone] Scheduled Procedures Name Priority Associated Diagnoses Date/Time ESOPHAGOGASTRODUODENOSCOPY Cirrhosis Alc oholic (HCC) 03/20/2022 8:45 AM TICKET AGENT Hypertension Portal (HCC) documented as of this encounter Visit Diagnoses Not on filedocumented in this encounter Additional Health Concerns Assessment Noted Time PHQ-9 Depression Total Score: 10 10/06/2021 5:00 PM CD T documented as of this encounter Care Teams Membership Sales Manager Relationship Specialty Start Date End Date Ana Red P.A.-C. PCP - General Internal Medicine 12/01/[address] [place] [address] Sadia BAYADI WRIGHT [phone] [facility]- [place] lab 08/25/21 Ervin Schroeder MD Referring Provider Family Medicine 11/22/[address] [place] [address] documented as of this encounter
--- OUTSIDE RECORDS SUMMARY | 2022-02-12 20:22 | XMS_ITS | Encounter Summary ---
:1990 Author Organization [facility] Address [address] [place] [address] Care Team Providers Name Role Phone Ana Red P.A.-C. Primary Care Provider [phone] Encounter Details Date Type Department Care Team Description 01/16/2022 Clinical Communication Division of Digna Campbell Gastroenterology in Lilian Schaefer [place], [place] [address] [facility] [address] [place] [phone] Social History Tobacco Use Types Packs/Day Years [...] How often do you attend holiness or Patient refused 2021 sabianist services? Do you belong to any clubs or No 02/10/2022 organizations such as holiness groups, unions, fraternal [...] highest level of school Associate degree: ruth abrker, 07/16/2021 you have completed or the highest technical, or vocational p rolf degree you have received? Sex Assigned at Date Recorded Female 04/12/2021 7:39 PM AD TRAFFICKER documented as of this encounter Plan of Treatment Upcoming Encounters Date Type Specialty Care Team Description Telemedicine Transplant 2 Appointment Radiology Matthew Jerome 2 YVikB.Kath, Lilian [address] [place] [phone] Appointment Gastroenterology and [place]ne, 2 Hepatology Yue Burciaga M.D. [address] [place] [phone] Virtual Visit Transplant Matthew Jerome 2 YTyrell, Lilian [address] [place] [phone] Office Visit Gastroenterology and [facility] 2 Hepatology Tyrell Rodriguez M.D. [address] [place] [phone] Appointment Radiology [facility] Matthew 2 Tyrell Rodriguez M.D. [address] [place] [phone] Hospital Gastroenterology and [facility] Cirrhos is Alcoholic (HCC) 2 Encounter Hepatology Tyrell Rodriguez M.D. [address] [place] [phone] Anesthesia Event Gastroenterology and Rl, 2 Hepatology Ervin Burgos M.D. [address] [place] [phone] Surgery Gastroenterology and [facility] ESOPHAG OGASTRODUODENOSCOPY 2 Hepatology Tyrell Rodriguez M.D. [address] [place] [phone] Scheduled Procedures Name Priority Associated Diagnoses Date/Time ESOPHAGOGASTRODUODENOSCOPY Cirrhosis Alc oholic (HCC) 03/20/2022 8:45 AM AD TRAFFICKER Hypertension Portal (HCC) documented as of this encounter Visit Diagnoses Not on filedocumented in this encounter Additional Health Concerns Assessment Noted Time PHQ-9 Depression Total Score: 10 10/06/2021 5:00 PM CD T documented as of this encounter Care Teams Estimating Engineer Relationship Specialty Start Date End Date Ana Red P.A.-C. PCP - General Internal Medicine 12/01/[address] [place] [address] ADI Chua [phone] [facility]- [place] lab 08/25/21 Ervin Schroeder MD Referring Provider Family Medicine 03/24/[address] [place] [address] ADI Mejía [phone] documented as of this encounter
--- OUTSIDE RECORDS SUMMARY | 2022-02-12 20:22 | XMS_ITS | Encounter Summary ---
:1990 Author Organization [facility] Address [address] [place] [address] Care Team Providers Name Role Phone Ana Red P.A.-C. Primary Care Provider [phone] Encounter Details Date Type Department Care Team Description 01/20/2022 Clinical Communication Department of Felicita Spicer Gastroenterology in [place], [place] [phone] [place] [address] ([facility]) [place] [phone] Social History Tobacco Use Types Packs/Day [...] you attend faith or Patient refused 2021 judaism services? Do you belong to any clubs or No 02/10/2022 organizations such as faith groups, unions, fraExuru! or athletic groups, or school groups? 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 Patient was also advised to hold her diuretics per direction from Dr. Jerome in separatemessage (see below). Patient verbalized understanding of the information provided and states she will report to [facility] ED as this is slightly closer [...] Telemedicine Transplant 2 Appointment Radiology Matthew Jerome 2, M.B.B.S., M.D. [address] [place] [phone] Appointment Gastroenterology and Adrianne, 2 Hepatology Yue Burciaga M.D. [address] [place] [phone] Virtual Visit Transplant Matthew Jerome 2, M.B.B.S., M.D. [address] [place] [phone] Office Visit Gastroenterology and Matthew Jerome 2 Hepatology Tyrell Rodriguez M.D. [address] [place] [phone] Appointment Radiology Matthew Jerome 2, M.B.B.S., M.D. [address] [place] [phone] Hospital Gastroenterology and [facility] Cirrhos is Alcoholic (HCC) 2 Encounter Hepatology Tyrell Rodriguez M.D. [address] [place] [phone] Anesthesia Event Gastroenterology and Rl, 2 Hepatology Ervin Burgos M.D. [address] [place] [address] [phone] Surgery Gastroenterology and [facility] ESOPHAG OGASTRODUODENOSCOPY 2 Hepatology Tyrell Rodriguez M.D. [address] [place] [phone] Scheduled Procedures Name Priority Associated Diagnoses Date/Time ESOPHAGOGASTRODUODENOSCOPY Cirrhosis Alc oholic (HCC) 03/20/2022 8:45 AM RADIOACTIVE WASTE DISPOSAL DISPATCHER Hypertension Portal (HCC) documented as of this encounter Visit Diagnoses Not on filedocumented in this encounter Additional Health Concerns Assessment Noted Time PHQ-9 Depression Total Score: 10 10/06/2021 5:00 PM CD T documented as of this encounter Care Teams Tire Trucker Relationship Specialty Start Date End Date Ana Red P.A.-Katrin. PCP - General Internal Medicine 12/01/[address] [place] [address] [place] [phone] [facility]- [place] lab 08/25/21 Ervin Schroeder MD Referring Provider Family Medicine 03/24/[address] [place] [address] [place] [address] documented as of this encounter
--- OUTSIDE RECORDS SUMMARY | 2022-02-12 20:22 | XMS_ITS | Encounter Summary ---
:1990 Author Organization [facility] Address [address] [place] [address] Care Team Providers Name Role Phone Ana Red P.A.-C. Primary Care Provider Reason for Visit Reason Comments Form Review [facility] med rec onciliation Encounter Details Date Type Department Care Team Description 01/22/2022 Clinical Communication Department of [employer], Form Review [facility], ([facility] Home Medicine in P.A.-C. [facility] [address] reconciliation) [place] [address] [facility] [phone] [facility] [place] [phone] (Work) [phone] Social History Tobacco Use Types Packs/Day Years [...] you attend anglican or Patient refused 2021 rastafarian services? Do [...] or the highest technical, or vocational p [facility] degree you have received? 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 Telephone Encounter - Marlene Ceron - 01/22/2022 1:21 PM CDT Form was emailed to Ana Red PA-C for electronic review/signature. PLASTIC PARTS DESIGNER: [facility] Health PHONE NUMBER: [phone] INFO REQUESTED: medication reconciliation INSTRUCTIONS: Fax form to [phone] documented in this encounter Plan of Treatment Upcoming Encounters Date Type Specialty Care Team Description Telemedicine Transplant 2 Appointment Radiology Matthew Jerome 2 YTyrell M.D. [address] [place] [phone] Appointment Gastroenterology demian Silver 2 Hepatology Yue Burciaga M.D. [address] [place] [phone] Virtual Visit Transplant Matthew Jerome 2 YTyrell M.D. [address] [place] [address] [phone] Office Visit Gastroenterology and Matthew Jerome 2 Hepatology Tyrell Rodriguez M.D. [address] [place] [phone] Appointment Radiology Matthew Jerome 2 YTyrell M.D. [address] [place] [address] [phone] Hospital Gastroenterology and Matthew Jerome Cirrhos is Alcoholic (HCC) 2 Encounter Hepatology Tyrell Rodriguez M.D. [address] [place] [address] [phone] Anesthesia Event Gastroenterology and Rl, 2 Hepatology Ervin Burgos M.D. [address] [place] [phone] Surgery Gastroenterology and Mousa, Matthew ESOPHAG OGASTRODUODENOSCOPY 2 Hepatology YTyrell M.D. [address] [place] [phone] Scheduled Procedures Name Priority Associated Diagnoses Date/Time ESOPHAGOGASTRODUODENOSCOPY Cirrhosis Alc oholic (HCC) 03/20/2022 8:45 AM AIRCRAFT FUELER Hypertension Portal (HCC) documented as of this encounter Visit Diagnoses Not on filedocumented in this encounter Additional Health Concerns Assessment Noted Time PHQ-9 Depression Total Score: 10 10/06/2021 5:00 PM CD T documented as of this encounter Care Teams Wire Coating Machine Operator Relationship Specialty Start Date End Date Ana Red P.A.-C. PCP - General Internal Medicine 12/01/[address] [place] [phone] [facility]- [place] lab 08/25/21 Ervin Schroeder MD Referring Provider Family Medicine 03/24/[address] [place] [address] documented as of this encounter
--- OUTSIDE RECORDS SUMMARY | 2022-02-12 20:22 | XMS_ITS | Encounter Summary ---
:1990 Author Organization [facility] Address [address] [place] [address] Care Team Providers Name Role Phone Ana Red P.A.-C. Primary Care Provider [phone] Encounter Details Date Type Department Care Team Description 01/20/2022 Hospital Encounter Department of Digna Campbell Hepati c Failure Laboratory Medicine Lilian Schaefer Unspecified Without in [place], [address] [facility] Coma (HCC) [place], [place] [address] [address] [place] [phone] (Work) [phone] Social History Tobacco Use Types Packs/Day Years [...] you attend episcopalian or Patient refused 2021 zoroastrian services? 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 [address] [place] [address] [phone] Appointment Gastroenterology and Adrianne, 2 Hepatology Yue Burciaga M.D. [address] [place] [phone] Virtual Visit Transplant Matthew Jerome 2 YJoshuaBSumaBLilian Bedolla [address] [place] [address] [phone] Office Visit Gastroenterology and Matthew Jerome 2 Hepatology Vik RodriguezBLilian Bedolla [address] [place] [address] [phone] Appointment Radiology Matthew Jerome 2 YVikB.Lilian Stockton [address] [place] [address] [phone] Hospital Gastroenterology and [facility] Cirrhos is Alcoholic (HCC) 2 Encounter Hepatology Tyrell Rodriguez M.D. [address] [place] [address] [phone] Anesthesia Event Gastroenterology and Rl, 2 Hepatology Ervin Burgos M.D. [address] [place] [address] [phone] Surgery Gastroenterology and [facility] ESOPHAG OGASTRODUODENOSCOPY 2 Hepatology Tyrell Rodriguez M.D. 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 Hypertension Portal (HCC) documented as of this [...] with Differential, Blood (01/20/2022 12:07 PM CDT) [facility] Method Time Signature Hemoglobin 7.4 (L) [...] City/State/ZIP Code Phon e Number [facility]- [address] [place] [address] [facility] [address] [place] [address] System in [place] [address] (ABNORMAL) Comprehensive Metabolic Panel [...] City/State/ZIP Code Phon e Number [facility]- [address] [place] [address] [place] [address] System in [place] [address] documented in this encounter Visit Diagnoses Diagnosis Cirrhosis Alcoholic (HCC) Hypertension Portal (HCC) Hepatic Failure Unspecified Without Coma (HCC) Cirrhosis Alcoholic (HCC) Hypertension Portal (HCC) documented in this encounter Additional Health Concerns Assessment Noted Time PHQ-9 Depression Total Score: 10 10/06/2021 5:00 PM CD T documented as of this encounter Care Teams Slipper Maker Relationship Specialty Start Date End Date Ana Red P.A.-C. PCP - General Internal Medicine 12/01/[address] [place] [phone] [facility]- [place] lab 08/25/21 Ervin Schroeder MD Referring Provider Family Medicine 03/24/21 1980 [facility] [place] [address] documented as of this encounter
--- OUTSIDE RECORDS SUMMARY | 2022-02-12 20:22 | XMS_ITS | Encounter Summary ---
:1990 Author Organization [facility] Address [address] [place] [address] Care Team Providers Name Role Phone Ana Red P.A.-C. Primary Care Provider [phone] Reason for Visit Reason Comments Phone Contact Encounter Details Date Type Department Care Team Description 01/15/2022 Clinical Ramirez Womack, Phone Contact Communication Center for [facility] Transplantation and Clinical Regeneration in [facility] pedro [address] [place] [address] Social History Tobacco Use Types Packs/Day Years [...] you attend confucianist or Patient refused 2021 baptism services? Do you belong to any clubs or No 02/10/2022 organizations such as confucianist groups, unions, fraThe Lions or athletic groups, or school groups? 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 Pt oked confirming by OM. Telephone Encounter - Parris Del Rio - 01/15/2022 1:46 PM CDT Pre- Patient returning a call to schedule her appts. She can be reached at [phone]. documented in this encounter Plan of Treatment Upcoming Encounters Date Type Specialty Care Team Description Telemedicine Transplant 2 Appointment Radiology Matthew Jerome 2 YTyrell M.D. [address] [place] [phone] Appointment Gastroenterology demian Silver, 2 Hepatology Yue Burcaiga M.D. [address] [place] [phone] Virtual Visit Transplant Matthew Jerome 2 YTyrell, Lilian [address] [place] [phone] Office Visit Gastroenterology and Matthew Jerome 2 Hepatology Tyrell Rodriguez M.D. [address] [place] [phone] Appointment Radiology LuisMatthew abdul 2 YTyrell M.D. [address] [place] [phone] Hospital Gastroenterology and Matthew Jerome Cirrhos is Alcoholic (HCC) 2 Encounter Hepatology Tyrell Rodriguez M.D. [address] [place] [phone] Anesthesia Event Gastroenterology and Rl, 2 Hepatology Ervin Burgos M.D. [address] [place] [phone] Surgery Gastroenterology and Matthew Jerome ESOPHAG OGASTRODUODENOSCOPY 2 Hepatology YTyrell, Lilian [address] [place] [phone] Scheduled Procedures Name Priority Associated Diagnoses Date/Time ESOPHAGOGASTRODUODENOSCOPY Cirrhosis Alc oholic (HCC) 03/20/2022 8:45 AM SUPERVISOR FABRICATION AND ASSEMBLY Hypertension Portal (HCC) documented as of this encounter Visit Diagnoses Not on filedocumented in this encounter Additional Health Concerns Assessment Noted Time PHQ-9 Depression Total Score: 10 10/06/2021 5:00 PM CD T documented as of this encounter Care Teams Relief Man Relationship Specialty Start Date End Date Ana Red P.A.-C. PCP - General Internal Medicine 12/01/[address] [place] [phone] [facility]- [place] lab 08/25/21 Ervin Schroeder MD Referring Provider Family Medicine 03/24/[address] [place] [address] [phone] documented as of this encounter
--- OUTSIDE RECORDS SUMMARY | 2022-02-12 20:22 | XMS_ITS | Encounter Summary ---
:1990 Author Organization [facility] Address [address] [place] [address] Care Team Providers Name Role Phone Ana Red P.A.-C. Primary Care Provider [phone] Encounter Details Date Type Department Care Team Description 01/20/2022 Orders Only Pharmacy Prior Auth Lina Raphael [phone] Social History Tobacco Use Types Packs/Day Years [...] you attend judaism or Patient refused 2021 moravian services? 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 [address] [place] [phone] Virtual Visit Transplant Matthew Jerome 2 YTyrell M.D. [address] [place] [phone] Office Visit Gastroenterology and Matthew Jerome 2 Hepatology Tyrell Rodriguez M.D. [address] [place] [phone] Appointment Radiology Queenie Matthew 2 YTyrell M.D. [address] [place] [phone] Hospital Gastroenterology and [place] Matthew Cirrhos is Alcoholic (HCC) 2 Encounter Hepatology Tyrell Rodriguez M.D. [address] [place] [phone] Anesthesia Event Gastroenterology and [facility] 2 Hepatology Ervin Burgos M.D. [address] [place] [phone] [facility] G[facility] ESOPHAG OGASTRODUODENOSCOPY 2 Hepatology Tyrell Rodriguez, Lilian [address] [place] [phone] Scheduled Procedures Name Priority Associated Diagnoses Date/Time ESOPHAGOGASTRODUODENOSCOPY Cirrhosis Alc oholic (HCC) 03/20/2022 8:45 AM EMERGENCY MEDICAL SERVICES COORDINATOR Hypertension Portal (HCC) documented as of this encounter Visit Diagnoses Not on filedocumented in this encounter Additional Health Concerns Assessment Noted Time PHQ-9 Depression Total Score: 10 10/06/2021 5:00 PM CD T documented as of this encounter Care Teams Bobbin Fixer Relationship Specialty Start Date End Date Ana Red P.A.-C. PCP - General Internal Medicine 12/01/[address] [place] [address] Sadia FUADI MARIE [phone] [facility]- [facility] 08/25/21 Ervin Schroeder MD Referring Provider Family Medicine 03/24/211979 [address] [place] [address] documented as of this encounter
--- OUTSIDE RECORDS SUMMARY | 2022-02-12 20:22 | XMS_ITS | Encounter Summary ---
:1990 Author Organization [facility] Address [address] [place] [address] Care Team Providers Name Role Phone Ana Red P.A.-C. Primary Care Provider [phone] Encounter Details Date Type Department Care Team Description 01/17/2022 Clinical Communication Division of Mike, Gastroenterology in [place], [place] Ph.D. [address] [facility] [address] [place] [address] [place], [place] [phone] Social History Tobacco Use Types Packs/Day Years [...] you attend moravian or Patient refused 2021 taoism services? 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 - 01/17/2022 6:56 PM CDT Paged by power operator regarding nose bleed for the last [...] Appointment Radiology Matthew Jerome 2 YTyrell M.D. [address] [place] [phone] Appointment Gastroenterology demian Silver, 2 Hepatology Yue Burciaga M.D. [address] [place] [phone] Virtual Visit Transplant Matthew Jerome 2 Tyrell Rodriguez M.D. [address] [place] [address] [phone] Office Visit Gastroenterology and Matthew Jerome 2 Hepatology Tyrell Rodriguez M.D. [address] [place] [phone] Appointment Radiology LuisMatthew abdul 2 YJoshuaBLilian Staples [address] [place] [address] [phone] Hospital Gastroenterology and Matthew Jerome Cirrhos is Alcoholic (HCC) 2 Encounter Hepatology Tyrell Rodriguez M.D. [address] [place] [address] [phone] Anesthesia Event Gastroenterology and Rl, 2 Hepatology Ervin Burgos M.D. [address] [place] [phone] Surgery Gastroenterology and Mousa, Matthew ESOPHAG OGASTRODUODENOSCOPY 2 Hepatology YTyrell M.D. [address] [place] [phone] Scheduled Procedures Name Priority Associated Diagnoses Date/Time ESOPHAGOGASTRODUODENOSCOPY Cirrhosis Alc oholic (HCC) 03/20/2022 8:45 AM PATTERN LEASE INSPECTOR Hypertension Portal (HCC) documented as of this encounter Visit Diagnoses Not on filedocumented in this encounter Additional Health Concerns Assessment Noted Time PHQ-9 Depression Total Score: 10 10/06/2021 5:00 PM CD T documented as of this encounter Care Teams Finance Business Manager Relationship Specialty Start Date End Date Ana Red P.A.-C. PCP - General Internal Medicine 12/01/[address] [place] [phone] [facility]- [place] [facility] 08/25/21 Ervin Schroeder MD Referring Provider Family Medicine 03/24/[address] [place] [phone] documented as of this encounter
--- OUTSIDE RECORDS SUMMARY | 2022-02-12 20:22 | XMS_ITS | Encounter Summary ---
:1990 Author Organization [facility] Address [address] [place] [address] Care Team Providers Name Role Phone Ana Red P.A.-C. Primary Care Provider [phone] Encounter Details Date Type Department Care [...] you attend faith or Patient refused 2021 scientology services? 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 [address] [place] [phone] Virtual Visit Transplant Matthew Jerome 2 YTyrell M.D. [address] [place] [address] [phone] Office Visit Gastroenterology and Matthew Jerome 2 Hepatology Tyrell Rodriguez M.D. [address] [place] [address] [phone] Appointment Radiology Queenie Matthew 2 Tyrell Rodriguez M.D. [address] [place] [address] [phone] Hospital Gastroenterology and [facility] Cirrhos is Alcoholic (HCC) 2 Encounter Hepatology Tyrell Rodriguez M.D. [address] [place] [phone] Anesthesia Event Gastroenterology and Rl, 2 Hepatology Ervin Burgos M.D. [address] [place] [address] [phone] Surgery Gastroenterology and [facility] ESOPHAG OGASTRODUODENOSCOPY 2 Hepatology Tyrell Rodriguez M.D. [address] [place] [phone] Scheduled Procedures Name Priority Associated Diagnoses Date/Time ESOPHAGOGASTRODUODENOSCOPY Cirrhosis Alc oholic (HCC) 03/20/2022 8:45 AM SUCTION WORKER Hypertension Portal (HCC) documented as of [...] documented as of this encounter Care Teams Pier Hand Helper Relationship Specialty Start Date End Date Ana Red P.A.-C. PCP - General Internal Medicine 12/01/[address] [place] [phone] [facility]- [place] lab 08/25/21 Ervin Schroeder MD Referring Provider Family Medicine 03/24/[address] [place] [phone] documented as of this encounter
--- OUTSIDE RECORDS SUMMARY | 2022-02-12 20:22 | XMS_ITS | Encounter Summary ---
:1990 Author Organization [facility] Address [address] [place] [address] Care Team Providers Name Role Phone Ana Red P.A.-C. 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 [address] [place] [phone] Virtual Visit Transplant Matthew Jerome 2 YVikB.Kath, Lilian [address] [place] [address] [phone] Office Visit Gastroenterology and [facility] 2 Hepatology Tyrell Rodriguez M.D. [address] [place] [phone] Appointment Radiology [facility] Matthew 2 Tyrell Rodriguez M.D. [address] [place] [phone] Hospital Gastroenterology and [facility] Cirrhos is Alcoholic (HCC) 2 Encounter Hepatology Tyrell Rodriguez M.D. [address] [place] [phone] Anesthesia Event Gastroenterology and Rl, 2 Hepatology Ervin Burgos M.D. [address] [place] [phone] Surgery Gastroenterology and [facility] ESOPHAG OGASTRODUODENOSCOPY 2 Hepatology Tyrell Rodriguez M.D. 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 PCP - General Internal Medicine 12/01/[address] [place] [address] ADI Chua [phone] [facility]- Critical access hospital 08/25/21 Ervin Schroeder MD Referring Provider Family Medicine 03/24/[address] [place] [address] ADI Mejía [phone] documented as of this encounter
--- OUTSIDE RECORDS SUMMARY | 2022-02-12 20:22 | XMS_ITS | Encounter Summary ---
:1990 Author Organization [facility] Address [address] [place] [address] Care Team Providers Name Role Phone Ana [...] Expiration Date Visits Requ ested Visits Authorized [id number] 1 1 Encounter Details Date Type Department Care Team Description 01/23/2022 Anesthesia Event Division of Gastroenterology Allegra Cronin in [facility] pedro Wilkes APRN, VP OUTCOMES [address] [facility] [address] [place] [address] [place], [place] [phone] Anesthesia Record Procedure Summary Procedure Name Responsible Anesthesia Start Anesthesia Stop Time Anesthesiologist Time EGD Allegra Cronin APRN, 01/23/22 1529 2 1552 (ESOPHAGEALGASTRODU VP OUTCOMES ODENOSCOPY) Events Date Time Event Comment 01/23/2022 1529 An Start Machine/Equipmen t Checked Infection Precautions Foll owed Procedure/Site Verified NPO Sta tus Verified Supine Standard ASA Mon itors Applied 1534 Turnover to Proceduralist 1539 Proc Start 1543 Proc Fin 1546 Turnover to ANE Staff 1547 an stop data 1552 An End I completed my h andoff to the receiving staff during [facility] we 1. Identified the patient 2. [...] many times do you More than three melnoy es a week 02/10/2022 talk on the phone with family, friends, or neighbors? How often do you get together with friends Once a week 02/10/2022 or relatives? How often do you attend methodist or Patient refused 2021 advent services? Do you belong to any clubs or No 02/10/2022 organizations such as methodist groups, unions, fraternal [...] or the highest technical, or vocational p [facility] degree you have received? 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 Risks/Benefits/Alternatives of Blood transfusion discussed with patient [...] Appointment Radiology Matthew Jerome 2 YTyrell, Lilian [address] [place] [phone] Appointment Gastroenterology and Doll, 2 Hepatology Yue Burciaga M.D. [address] [place] [phone] Virtual Visit Transplant Matthew Jerome 2 Tyrell Rodriguez M.D. [address] [place] [phone] Office Visit Gastroenterology and Matthew Jerome 2 Hepatology Joshua RodriguezBSumaBLilian Bedolla [address] [place] [phone] Appointment Radiology LuisMatthew abdul 2 Joshua RodriguezBSumaBLilian Bedolla [address] [place] [phone] Hospital Gastroenterology and Matthew Jerome Cirrhos is Alcoholic (HCC) 2 Encounter Hepatology Joshua RodriguezBSumaBLilian Bedolla [address] [place] [phone] Anesthesia Event Gastroenterology and Rl, 2 Hepatology Ervin Burgos M.D. [address] [place] [phone] Surgery Gastroenterology and Matthew Jerome ESOPHAG OGASTRODUODENOSCOPY 2 Hepatology Joshua RodriguezB.B.Kath, Lilian [address] [place] [phone] Scheduled Procedures Name Priority Associated Diagnoses Date/Time ESOPHAGOGASTRODUODENOSCOPY Cirrhosis Alc oholic (HCC) 03/20/2022 8:45 AM SAMPLE CARRIER Hypertension Portal (HCC) documented as of this [...] documented as of this encounter Care Teams Bulb Packer Relationship Specialty Start Date End Date Ana Red P.A.-C. PCP - General Internal Medicine 12/01/[address] [place] [address] [place] [phone] [facility] 08/25/21 Ervin Schroeder MD Referring Provider Family Medicine 03/24/[address] [place] [address] ADI Mejía [phone] documented as of this encounter
--- OUTSIDE RECORDS SUMMARY | 2022-02-12 20:22 | XMS_ITS | Encounter Summary ---
:1990 Author Organization [facility] Address [address] [place] [address] Care Team Providers Name Role Phone Ana Red P.A.-C. 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) Procedures ED ADMIT Referral ID Status Reason Start Date Expiration Date Visits Requ ested Visits Authorized [id number] 1 Encounter Details Date Type Department Care Team Description 01/26/2022 Anesthesia Event Division of Gildardo Hickey APRN, SPORTS PHYSIOTHERAPIST, DNAP [address] [place] [phone] Gastroenterology in [place] APRN, SPORTS PHYSIOTHERAPIST, DNAP [address] [place] [phone] [place], [place] [address] [place] [phone] Anesthesia Record Procedure Summary Procedure Name Responsible Anesthesia Start Anesthesia Stop Time Anesthesiologist Time EGD Gildardo Hickey APRN, 01/26/22 1538 01/26/22 1645 (ESOPHAGEALGASTRODU SPORTS PHYSIOTHERAPIST, DNAP ODENOSCOPY) Events Date Time Event Comment [...] h andoff to the receiving staff during [facility] we 1. Identified the patient 2. [...] Brown, St ephen E, (created via procedure PHARMACIST APPRENTICE, SPORTS PHYSIOTHERAPIST, DNAP PHARMACIST APPRENTICE, CR NA, DNAP documentation); Mask Ventilation: Not [...] el, Anna C Catheter Size: 18 G; PHARMACIST APPRENTICE, SPORTS PHYSIOTHERAPIST, DNAP Orientation: Right; Location: Wrist; Inserted by: [...] you attend protestant or Patient refused 2021 congregation services? Do [...] Date Recorded Female 04/12/2021 7:39 PM DATA SME documented as of this encounter OR Notes Anesthesia Postprocedure Evaluation - Gildardo Hickey APRN, CRNA, DNAP - 01/26/2022 4:45 PM CDT Patient: Catia Carias Procedure Summary Date: 01/26/22 Room / Location: Division of Gastroenterology in [place], [place] Anesthesia Start: 1538 Anesthesia Stop: 1644 Procedure: EGD (ESOPHAGEALGASTRODUODENOSCOPY) Diagnosis: Scheduled Providers: Gildarod Hickey APRN, CRNA, DNAShanita Responsible Provider: Gildardo [...] EGD (ESOPHAGEALGASTRODUODENOSCOPY) Location: Division of Gastroenterology in [place], [place] Pertinent components of the patient's history [...] with patient /legal guardian or through an credit union examiner. Risks/Benefits/Alternatives of Blood transfusion discussed with patient [...] Appointment Radiology LuisMatthew abdul 2 YTyrell M.D. [address] [place] [address] [phone] Appointment Gastroenterology demian Silver 2 Hepatology Yue Burciaga M.D. [address] [place] [phone] Virtual Visit Transplant Matthew Jerome 2 YJoshuaBSumaBLilian Bedolla [address] [place] [phone] Office Visit Gastroenterology and LuisMatthew abdul 2 Hepatology Tyrell Rodriguez M.D. [address] [place] [phone] Appointment Radiology LuisMatthew abdul 2 YJoshuaB.BLilian Bedolla [address] [place] [address] [phone] Hospital Gastroenterology and Matthew Jerome Cirrhos is Alcoholic (HCC) 2 Encounter Hepatology Joshua RodriguezBSumaBLilian Bedolla [address] [place] [address] [phone] Anesthesia Event Gastroenterology and Rl 2 Hepatology Ervin Burgos M.D. [address] [place] [address] [phone] Surgery Gastroenterology and Mousa, Matthew ESOPHAG OGASTRODUODENOSCOPY 2 Hepatology Tyrell Rodriguez M.D. [address] [place] [phone] Scheduled Procedures Name Priority Associated Diagnoses Date/Time ESOPHAGOGASTRODUODENOSCOPY Cirrhosis Alc oholic (HCC) 03/20/2022 8:45 AM DATA SME Hypertension Portal (HCC) documented as of this encounter Procedures Procedure Name Priority Date/Time Associated Comments Diagnosis LDA ANE ENDOTRACHEAL Routine 01/26/2022 3:51 PM R esults for this AIRWAY CDT procedure are i n the results section. documented in this encounter Results LDA ANE ENDOTRACHEAL AIRWAY (01/26/2022 3:51 PM CDT) Narrative Gildardo Hickey APRN, CRNA, DNAP - 3:51 PM CDT Gildardo Hickey APRN, CRNA DNAP ? 01/26/2022 ??4:08 PM Airway Date/Time: 01/26/2022 3:51 PM Performed by: Gildardo Hickey APRN, CR NA DNAP Authorized by: Gildardo Hickey APRN, C [...] documented as of this encounter Care Teams Licensing Worker Relationship Specialty Start Date End Date Ana Red P.A.-C. PCP - General Internal Medicine 12/01/[address] [place] [phone] [facility] 08/25/21 Ervin Schroeder MD Referring Provider Family Medicine 03/24/[address] [place] [phone] documented as of this encounter
--- OUTSIDE RECORDS SUMMARY | 2022-02-12 20:22 | XMS_ITS | Encounter Summary ---
:1990 Author Organization [facility] Address [address] [place] [address] Care Team Providers Name Role Phone Ana Red P.A.-C. Primary Care Provider [phone] Encounter Details Date Type Department Care Team Description 01/26/2022 Orders Only Pharmacy Prior Auth Nicole Briscoe [phone] Social History Tobacco Use Types Packs/Day Years [...] you attend latter-day or Patient refused 2021 catholic services? 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 [address] [place] [phone] Appointment Gastroenterology and Adrianne, 2 Hepatology Yue Burciaga M.D. [address] [place] [phone] Virtual Visit Transplant Matthew Jerome 2, M.B.B.S., M.D. [address] [place] [phone] Office Visit Gastroenterology and Matthew Jerome 2 Hepatology Y, Lilian Santillan [address] [place] [address] [phone] Appointment Radiology [facility] 2 YTyrell M.D. [address] [place] [phone] Hospital Gastroenterology and [facility] Cirrhos is Alcoholic (HCC) 2 Encounter Hepatology Tyrell Rodriguez M.D. [address] [place] [phone] Anesthesia Event Gastroenterology and [facility], 2 Hepatology Ervin Burgos M.D. [address] [place] [address] [phone] Surgery Gastroenterology and [facility] ESOPHAG OGASTRODUODENOSCOPY 2 Hepatology Tyrell Rodriguez M.D. [address] [place] [phone] Scheduled Procedures Name Priority Associated Diagnoses Date/Time ESOPHAGOGASTRODUODENOSCOPY Cirrhosis Alc oholic (HCC) 03/20/2022 8:45 AM CONSULTING SOLUTION MANAGER Hypertension Portal (HCC) documented as of this encounter Visit Diagnoses Not on filedocumented in this encounter Additional Health Concerns Assessment Noted Time PHQ-9 Depression Total Score: 10 10/06/2021 5:00 PM CD T documented as of this encounter Care Teams Retail Loan Originator Relationship Specialty Start Date End Date Ana Red P.A.-C. PCP - General Internal Medicine 12/01/[address] [place] [address] Sadia BAYADI WRIGHT [phone] [facility]- [place] lab 08/25/21 Ervin Schroeder MD Referring Provider Family Medicine 11/22/[address] [place] [address] documented as of this encounter
--- OUTSIDE RECORDS SUMMARY | 2022-02-12 20:22 | XMS_ITS | Encounter Summary ---
:1990 Author Organization [facility] Address [address] [place] [address] Care Team Providers Name Role Phone Ana Red P.A.-C. Primary Care Provider [phone] Reason for Visit Reason Comments Rx Prior Authorization ASHLEY DENIED - LIDOCAINE 5% PAT CH Encounter Details Date Type Department Care Team Description 01/26/2022 Clinical Communication Pharmacy Prior Auth Christopher, Rx Prior RO Nicole A Authorization (ASHLEY [phone] DENIED - LIDOCA INE 5% PATCH) Social [...] you attend shinto or Patient refused 2021 congregational services? Do you belong to any clubs or No 02/10/2022 organizations such as shinto groups, unions, fraEnliken or athletic groups, or school groups? 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 [address] [place] [phone] Virtual Visit Transplant Matthew Jerome 2 Y M.B.B.SSuma, Lilian [address] [place] [address] [phone] Office Visit Gastroenterology and Matthew Jerome 2 Hepatology Elizabeth Rodriguez.B.B.SSuma, Lilian [address] [place] [address] [phone] Appointment Radiology Matthew Jerome 2 Y M.B.B.SSuma, Lilian [address] [place] [address] [phone] Hospital Gastroenterology and Matthew Jerome Cirrhos is Alcoholic (HCC) 2 Encounter Hepatology Elizabeth Rodriguez.B.B.SSuma, Lilian [address] [place] [address] [phone] Anesthesia Event Gastroenterology and Rl, 2 Hepatology Ervin Burgos M.D. [address] [place] [phone] Surgery Gastroenterology and Mousa, Matthew ESOPHAG OGASTRODUODENOSCOPY 2 Hepatology Tyrell Rodriguez M.D. [address] [place] [phone] Scheduled Procedures Name Priority Associated Diagnoses Date/Time ESOPHAGOGASTRODUODENOSCOPY Cirrhosis Alc oholic (HCC) 03/20/2022 8:45 AM SUTURE POLISHER Hypertension Portal (HCC) documented as of this encounter Visit Diagnoses Not on filedocumented in this encounter Additional Health Concerns Assessment Noted Time PHQ-9 Depression Total Score: 10 10/06/2021 5:00 PM CD T documented as of this encounter Care Teams Twisting Department End Finder Relationship Specialty Start Date End Date Ana Red P.A.-C. PCP - General Internal Medicine 12/01/[address] [place] [phone] [facility]- [place] lab 08/25/21 Ervin Schroeder MD Referring Provider Family Medicine 03/24/[address] [place] [address] documented as of this encounter
--- OUTSIDE RECORDS SUMMARY | 2022-02-12 20:22 | XMS_ITS | Encounter Summary ---
:1990 Author Organization [facility] Address [address] [place] [address] Care Team Providers Name Role Phone Ana Red SumaASumaC. Primary Care Provider [phone] Encounter Details Date Type Department Care Team Description 01/19/2022 Orders Only Department of [facility] Ana Red , Internal Medicine in [place] 300 [facility] 300 [facility] [place] [phone] (Wo rk) Social History Tobacco [...] you attend pentecostalism or Patient refused 2021 anglican services? 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 [address] [place] [phone] Virtual Visit Transplant Matthew Jerome 2 Y, M.Lilian [place] [address] [place] [phone] Office Visit Gastroenterology and [facility] 2 Hepatology Tyrell Rodriguez M.D. [address] [place] [phone] Appointment Radiology [facility] 2 Tyrell Rodriguez M.D. [address] [place] [phone] [facility] Gastroenterology and [facility] Cirrhos is Alcoholic (HCC) 2 Encounter Hepatology Tyrell Rodriguez M.D. [address] [place] [phone] Anesthesia Event Gastroenterology and Rl, 2 Hepatology Ervin Burgos M.D. [address] [place] [phone] Surgery Gastroenterology and [facility] ESOPHAG OGASTRODUODENOSCOPY 2 Hepatology Tyrell Rodriguez M.D. [address] [place] [phone] Scheduled Procedures Name Priority Associated Diagnoses Date/Time ESOPHAGOGASTRODUODENOSCOPY Cirrhosis Alc oholic (HCC) 03/20/2022 8:45 AM ENDOSCOPY TECHNICAN Hypertension Portal (HCC) documented as of this encounter Visit Diagnoses Not on filedocumented in this encounter Additional Health Concerns Assessment Noted Time PHQ-9 Depression Total Score: 10 10/06/2021 5:00 PM CD T documented as of this encounter Care Teams Communications Equipment Supervisor Relationship Specialty Start Date End Date Ana Red P.A.-C. PCP - General Internal Medicine 12/01/[address] [place], [place] [address], [place] [phone] [facility] 08/25/21 Ervin Schroeder MD Referring Provider Family Medicine 03/24/[address] [place] [address] ADI P[place]agua [phone] documented as of this encounter
--- OUTSIDE RECORDS SUMMARY | 2022-02-12 20:22 | XMS_ITS | Encounter Summary ---
:1990 Author Organization [facility] Address [address] [place] [address] Care Team Providers Name Role Phone Ana Red P.A.-C. Primary Care Provider [phone] Reason for Visit Reason Comments Phone Contact Appointment LABs Encounter Details Date Type Department Care Team Description 01/16/2022 Clinical Ramirez Barajas, Phone Contact; Communication Center for [facility] Rowland (Jagdeep Izaguirre) Transplantation and Lilian, Ph.D. Clinical [facility] [address] [place] [address] [facility] [phone] Social History Tobacco Use Types Packs/Day Years [...] you attend hinduism or Patient refused 2021 anglican services? Do [...] or the highest technical, or vocational [facility] degree you have received? 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 OM sent to confirm appts. Telephone Encounter [...] labs. She will be completing some in [place] on 01/20. Could we get orders for [place] for the labs that she needs to complete? PASS: Please link new orders to 01/20 labs and add urine as close as possible. Thank you in advance documented in this encounter Plan of Treatment Upcoming Encounters Date Type Specialty Care Team Description Telemedicine Transplant 2 Appointment Radiology Matthew Jerome 2 Y, VikBSumaSSuma, Lilian [address] [place] [address] Appointment Gastroenterology and Adrianne, 2 Hepatology Yue Burciaga M.D. [address] [place] [phone] Virtual Visit Transplant Matthew Jerome 2 YTyrell M.D. [address] [place] [phone] Office Visit Gastroenterology and Matthew Jerome 2 Hepatology Tyrell Rodriguez M.D. [address] [place] [phone] Appointment Radiology LuisMatthew abdul 2 YTyrell M.D. [address] [place] [phone] Hospital Gastroenterology and Matthew Jerome Cirrhos is Alcoholic (HCC) 2 Encounter Hepatology Tyrell Rodriguez M.D. [address] [place] [phone] Anesthesia Event Gastroenterology and Rl, 2 Hepatology Ervin Burgos M.D. [address] [place] [address] [phone] Surgery Gastroenterology and Matthew Jerome ESOPHAG OGASTRODUODENOSCOPY 2 Hepatology Tyrell Rodriguez M.D. [address] [place] [phone] Scheduled Procedures Name Priority Associated Diagnoses Date/Time ESOPHAGOGASTRODUODENOSCOPY Cirrhosis Alc oholic (HCC) 03/20/2022 8:45 AM CAR BLOCKER Hypertension Portal (HCC) documented as of this encounter Visit Diagnoses Not on filedocumented in this encounter Additional Health Concerns Assessment Noted Time PHQ-9 Depression Total Score: 10 10/06/2021 5:00 PM CD T documented as of this encounter Care Teams Rug Setter Velvet Relationship Specialty Start Date End Date Ana Red P.A.-C. PCP - General Internal Medicine 12/01/[address] [place] [phone] [facility]- [place] lab 08/25/21 Ervin Schroeder MD Referring Provider Family Medicine 03/24/[address] [place] [address] documented as of this encounter
--- OUTSIDE RECORDS SUMMARY | 2022-02-12 20:22 | XMS_ITS | Encounter Summary ---
:1990 Author Organization [facility] Address [address] [place] [address] Care Team Providers Name Role Phone Ana Red P.A.-C. Primary Care Provider Reason for Referral Physical Therapy (Routine) - Authorized Specialty Diagnoses / Procedures Referred By Contact Refer red To Contact Diagnoses Pain Low Back Unspecified Ana Red P.A.-C. [address] [facility] [place] [phone] Referral ID Status Reason Start Expiration Visits Visits Date Date Requested Authorized [id number] Authorized Service not 01/20/2022 01/20/2023 1 1 available in [facility] Reason for Visit Reason Comments Hepatic [...] Expiration Date Visits Requ ested Visits Authorized [id number] Closed 01/13/2022 01/13/2023 1 1 Encounter Details Date Type Department Care Team Description 01/20/2022 Office Visit Department of [facility], Pain Low Back Unspecified (Primary Dx); Community Internal Frances PerezASuma Ortega. Cirrhosis Alcoholic (HCC); Medicine in [place] [address] Ascites; [place], [place] Long QT Syndrome; [address] [phone] Rhinitis Allergic; [place], [place] [phone] Alcohol Use Un specified With Unspecified Alcohol Induced Disorder (HCC) [phone] (Work) [phone] Social History Tobacco Use Types Packs/Day Years [...] attend oriental orthodox or Patient refused 2021 samaritan services? 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 Unresponsiveness in ER. [...] post hospital follow-up. 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 She feels [...] week. She has a EGD scheduled in [place] for early January to assess for esophageal varices. #4 Pain Low Back Unspecified We put through a physical therapy order to [facility] today for back pain. I did refill flexeril for patient to use once daily. She is also using lidocaine patches [id number] and I did send these in for her via prescription but they are going through a prior authorization process. - External referral PT (non-[place]) #5 Rhinitis Allergic She is wondering if she can use an [id number] nasal spray for allergies. I recommended flonase. [...] Her home nurse is Misbah Crook with [facility]. Ana Red P.A.-C. Update: Notified of [facility] on labs today by hospital provider. Patient has been contacted to report to the ED for albumin infusion and to hold her diuretics. documented in this encounter Plan of Treatment Upcoming Encounters Date Type Specialty Care Team Description Telemedicine Transplant 2 Appointment Radiology Matthew Jerome 2 YTyrell M.D. [address] [place] [phone] Appointment Gastroenterology and Adrianne, 2 Hepatology Yue Burciaga M.D. [address] [place] [phone] Virtual Visit Transplant Matthew Jerome 2 Tyrell Rodriguez M.D. [address] [place] [phone] Office Visit Gastroenterology and Matthew Jerome 2 Hepatology Tyrell Rodriguez M.D. [address] [place] [phone] Appointment Radiology LuisMatthew abdul 2 YTyrell M.D. [address] [place] [phone] Hospital Gastroenterology and Matthew Jerome Cirrhos is Alcoholic (HCC) 2 Encounter Hepatology Tyrell Rodriguez M.D. [address] [place] [phone] Anesthesia Event Gastroenterology and Rl, 2 Hepatology Ervin Burgos M.D. [address] [place] [address] [phone] Surgery Gastroenterology and Matthew Jerome ESOPHAG OGASTRODUODENOSCOPY 2 Hepatology Tyrell Rodriguez M.D. [address] [place] [phone] Scheduled Procedures Name Priority Associated Diagnoses Date/Time ESOPHAGOGASTRODUODENOSCOPY Cirrhosis Alc oholic (HCC) 03/20/2022 8:45 AM PLANT QUALITY MANAGER Hypertension Portal (HCC) documented as of [...] documented as of this encounter Care Teams Linen Controller Relationship Specialty Start Date End Date Ana Red P.A.-C. PCP - General Internal Medicine 12/01/[address] [place] [phone] [facility]- [place] lab 08/25/21 Ervin Schroeder MD Referring Provider Family Medicine 03/24/[address] [place], [place] [address] [address] documented as of this encounter
--- OUTSIDE RECORDS SUMMARY | 2022-02-12 20:22 | XMS_ITS | Encounter Summary ---
:1990 Author Organization [facility] Address [address] [place] [address] Care Team Providers Name Role Phone Ana Red P.A.-C. Primary Care Provider [phone] Encounter Details Date Type Department Care Team Description 01/19/2022 Clinical Communication [facility] [place] Farida Perez Medicine in [address] [address] [place], [place] [phone] [address] (Work) [phone] Social History Tobacco Use Types Packs/Day Years [...] you attend religious or Patient refused 2021 confucianist services? Do [...] the highest technical, or vocational p [facility] degree you have received? 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 [phone] Is it okay to leave a detailed message? yes What is the patient's request? Can she go back up to 100 mg of Lasix? Medication name/dose: furosemide (LASIX) 20 mg tablet Recent changes/new symptoms/side effects: new water retention in legs What pharmacy are you using today? [facility] Additional comments (if any): Last week patient was in [place] and they cut her furosemide (LASIX)20 mg [...] symptoms or side effects, please route to TEST BORER pool of prescribing provider - if new symptoms or having side effects, please transfer to off-site triage ([phone]) documented in this encounter Plan of Treatment Upcoming Encounters Date Type Specialty Care Team Description Telemedicine Transplant 2 Appointment Radiology Matthew Jerome 2 YTyrell, MJules [address] [place] [phone] Appointment Gastroenterology and Adrianne, 2 Hepatology Yue Burciaga M.D. [address] [place] [address] Virtual Visit Transplant Matthew Jerome 2 Tyrell Rodriguez M.D. [address] [place] [phone] Office Visit Gastroenterology and Matthew Jerome 2 Hepatology Tyrell Rodriguez M.D. [address] [place] [phone] Appointment Radiology LuisMatthew abdul 2 Tyrell Rodriguez M.D. [address] [place] [phone] Hospital Gastroenterology and Matthew Jerome Cirrhos is Alcoholic (HCC) 2 Encounter Hepatology Tyrell Rodriguez M.D. [address] [place] [address] Anesthesia Event Gastroenterology and Rl, 2 Hepatology Ervin Burgos M.D. [address] [place] [address] Surgery Gastroenterology and Matthew Jerome ESOPHAG OGASTRODUODENOSCOPY 2 Hepatology Joshua RodriguezBSumaBGraeme, Lilian [address] [place] [address] Scheduled Procedures Name Priority Associated Diagnoses Date/Time ESOPHAGOGASTRODUODENOSCOPY Cirrhosis Alc oholic (HCC) 03/20/2022 8:45 AM CHANGE MANAGEMENT FACILITATOR Hypertension Portal (HCC) documented as of this encounter Visit Diagnoses Not on filedocumented in this encounter Additional Health Concerns Assessment Noted Time PHQ-9 Depression Total Score: 10 10/06/2021 5:00 PM CD T documented as of this encounter Care Teams Shirt Trimmer Relationship Specialty Start Date End Date Ana Red P.A.-C. PCP - General Internal Medicine 12/01/[address] [place] [phone] [facility] [place] lab 08/25/21 Ervin Schroeder MD Referring Provider Family Medicine 03/24/[address] [place] [address] documented as of this encounter
--- OUTSIDE RECORDS SUMMARY | 2022-02-12 20:22 | XMS_ITS | Encounter Summary ---
:1990 Author Organization [facility] Address [address] [place] [address] Care Team Providers Name Role Phone Ana Red P.A.-C. Primary Care Provider [phone] Reason for Visit Reason Comments Med Refill Encounter Details Date Type Department Care Team Description 01/20/2022 Refill Department of [facility] Ana Red , Med Refill Internal Medicine in [place], [place] 300 [facility] 300 [facility] [address] [place] [address] [phone] Social History Tobacco Use Types Packs/Day Years [...] you attend buddhism or Patient refused 2021 confucianist services? Do you belong to any clubs or No 02/10/2022 organizations such as buddhism groups, unions, framadKast or athletic groups, or school groups? 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 [address] [place] [address] Appointment Gastroenterology and Adrianne, 2 Hepatology Yue Burciaga M.D. [address] [place] [address] Virtual Visit Transplant Matthew Jerome 2 YTyrell M.D. [address] [place] [phone] Office Visit Gastroenterology and Matthew Jerome 2 Hepatology Tyrell Rodriguez M.D. [address] [place] [phone] Appointment Radiology Matthew Jerome 2 Tyrell Rodriguez M.D. [address] [place] [phone] Hospital Gastroenterology and Matthew Jerome Cirrhos is Alcoholic (HCC) 2 Encounter Hepatology Tyrell Rodriguez M.D. [address] [place] [phone] Anesthesia Event Gastroenterology and Rl, 2 Hepatology Ervin Burgos M.D. [address] [place] [phone] Surgery Gastroenterology and Matthew Jerome ESOPHAG OGASTRODUODENOSCOPY 2 Hepatology Tyrell Rodriguez M.D. [address] [place] [phone] Scheduled Procedures Name Priority Associated Diagnoses Date/Time ESOPHAGOGASTRODUODENOSCOPY Cirrhosis Alc oholic (HCC) 03/20/2022 8:45 AM FIELD EDUCATION COORDINATOR Hypertension Portal (HCC) documented as of this encounter Visit Diagnoses Not on filedocumented in this encounter Additional Health Concerns Assessment Noted Time PHQ-9 Depression Total Score: 10 10/06/2021 5:00 PM CD T documented as of this encounter Care Teams Brass Chaser Relationship Specialty Start Date End Date Ana Red P.A.-C. PCP - General Internal Medicine 12/01/[address] [place] [address] [facility] [place] [address] [facility]- [facility], [facility] 08/25/21 Ervin Schroeder MD Referring Provider Family Medicine 03/24/[address] [place] [address] [place] [address] documented as of this encounter
--- OUTSIDE RECORDS SUMMARY | 2022-02-12 20:23 | XMS_ITS | Encounter Summary ---
:1990 Author Organization [facility] Address [address] [place] [address] Care Team Providers Name Role Phone Ana Red P.A.-C. Primary Care Provider [phone] Reason for Visit Reason Comments Appointment January follow up Encounter Details Date Type Department Care Team Description 01/14/2022 Clinical Ramirez Huerta, [facility] Communication Center for Adeline Jagdeep (January laci Wilson, Ph.D. up) Clinical Regeneration [address] [place] [address] in [facility] [phone] [place] [address] [place], [place] (Work) [address] [phone] Social History Tobacco Use Types Packs/Day Years [...] you attend denominational or Patient refused 2021 episcopalian services? Do [...] or vocational p [facility] degree you have received? 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 documented in this encounter Plan of Treatment Upcoming Encounters Date Type Specialty Care Team Description Telemedicine Transplant 2 Appointment Radiology Matthew Jerome 2 YTyrell, Lilian [address] [place] [address] Appointment Gastroenterology and Adrianne, 2 Hepatology Yue Burciaga M.D. [address] [place] [phone] Virtual Visit Transplant LuisNew abdular 2 Tyrell Rodriguez M.D. [address] [place] [phone] Office Visit Gastroenterology and Matthew Jerome 2 Hepatology Tyrell Rodriguez M.D. [address] [place] [phone] Appointment Radiology Matthew Jerome 2 Tyrell Rodriguez M.D. [address] [place] [phone] Hospital Gastroenterology and Matthew Jerome Cirrhos is Alcoholic (HCC) 2 Encounter Hepatology Tyrell Rodriguez M.D. [address] [place] [phone] Anesthesia Event Gastroenterology and Rl, 2 Hepatology Ervin Burgos M.D. [address] [place] [phone] Surgery Gastroenterology and Matthew Jerome ESOPHAG OGASTRODUODENOSCOPY 2 Hepatology Vik RodriguezBLilian Bedolla [address] [place] [phone] Scheduled Procedures Name Priority Associated Diagnoses Date/Time ESOPHAGOGASTRODUODENOSCOPY Cirrhosis Alc oholic (HCC) 03/20/2022 8:45 AM WEB DATABASE DEVELOPER Hypertension Portal (HCC) documented as of this encounter Visit Diagnoses Not on filedocumented in this encounter Additional Health Concerns Assessment Noted Time PHQ-9 Depression Total Score: 10 10/06/2021 5:00 PM CD T documented as of this encounter Care Teams Hotbed Transfer Operator Relationship Specialty Start Date End Date Ana Red P.A.-C. PCP - General Internal Medicine 12/01/[address] [place] [phone] [facility]- [place] lab 08/25/21 Ervin Schroeder MD Referring Provider Family Medicine 03/24/[address] [place] [address] [phone] documented as of this encounter
--- OUTSIDE RECORDS SUMMARY | 2022-02-12 20:23 | XMS_ITS | Encounter Summary ---
:1990 Author Organization [facility] Address [address] [place] [address] Care Team Providers Name Role Phone Ana Red P.A.-C. Primary Care Provider [phone] Reason for Visit Reason Comments Post Hospital Follow-up Encounter Details Date Type Department Care Team Description 01/15/2022 Clinical Communication Department of [facility] Internal Ciara Johnson RSumaNSuma Follow-up Medicine in [address] [place] [phone] 300 [facility] [phone] [place], [place] (Work) [phone] Social History Tobacco Use [...] you attend mu-ism or Patient refused 2021 taoism services? 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 Patient was dismissed from the hospital on 01/14/22 at 1748. documented in this encounter Plan of Treatment Upcoming Encounters Date Type Specialty Care Team Description Telemedicine Transplant 2 Appointment Radiology Matthew Jerome 2 YTyrell M.D. [address] [place] [phone] Appointment Gastroenterology and Adrianne, 2 Hepatology Yue Burciaga M.D. [address] [place] [phone] Virtual Visit Transplant Luischantell Matthew 2 Joshua RodriguezBSumaBLilian Bedolla [address] [place] [phone] Office Visit Gastroenterology and LuisNew abdular 2 Hepatology Vik RodriguezBLilian Bedolla [address] [place] [phone] Appointment Radiology Matthew Jerome 2 YVikBLilian Bedolla [address] [place] [phone] Hospital Gastroenterology and [place], Matthew Cirrhos is Alcoholic (HCC) 2 Encounter Hepatology Tyrell Rodriguez M.D. [address] [place] [phone] Anesthesia Event Gastroenterology and Rl, 2 Hepatology Ervin Bugros M.D. [address] [place] [phone] Surgery Gastroenterology and [facility], Matthew ESOPHAG OGASTRODUODENOSCOPY 2 Hepatology Tyrell Rodriguez M.D. [address] [place] [phone] Scheduled Procedures Name Priority Associated Diagnoses Date/Time ESOPHAGOGASTRODUODENOSCOPY Cirrhosis Alc oholic (HCC) 03/20/2022 8:45 AM LEAN LEADER Hypertension Portal (HCC) documented as of this encounter Visit Diagnoses Not on filedocumented in this encounter Additional Health Concerns Assessment Noted Time PHQ-9 Depression Total Score: 10 10/06/2021 5:00 PM CD T documented as of this encounter Care Teams Environmental Tech Relationship Specialty Start Date End Date Ana Red P.A.-C. PCP - General Internal Medicine 12/01/[address] [place] [address] [place] [phone] [facility]- [place] lab 08/25/21 Ervin Schroeder MD Referring Provider Family Medicine 03/24/[address] [place] [address] [place] [address] documented as of this encounter
--- OUTSIDE RECORDS SUMMARY | 2022-02-12 20:23 | XMS_ITS | Encounter Summary ---
:1990 Author Organization [facility] Address [address] [place] [address] Care Team Providers Name Role Phone Ana Red P.A.-C. Primary Care Provider [phone] Reason for Referral Transplant (Routine) - Authorized Specialty Diagnoses / Procedures Referred By Contact Refer red To Contact Transplant Surgery / [facility] MonicaSZara, M.S.W. [address] [place] [address] Referral ID Status Reason Start Date Expiration Date Visits V isits Requested Authorized [id number] Authorized 01/13/2022 01/12/2025 1 1 Scheduling Instructions Please schedule a follow up visit with J[facility]. Patient prefers video visit. Thank you. Encounter Details Date Type Department Care Team Description 01/13/2022 Orders Only Department of Social Work Rajiv Tan, in [facility] Vinay.S.W., M.S.W. 200 [facility] 200 [place] [address] [place] [address] [phone] (Wo rk) Social History Tobacco Use Types [...] you attend anabaptism or Patient refused 2021 confucianist services? 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 [address] [place] [phone] Virtual Visit Transplant LuischantellMatthew 2 Vik RodriguezBGraeme, Lilian [address] [place] [phone] Office Visit Gastroenterology and Matthew Jerome 2 Hepatology Joshua RodriguezB.BLilian Bedolla [address] [place] [phone] Appointment Radiology Matthew Jerome 2 YJoshuaB.B.SLilian Moise [address] [place] [phone] Hospital Gastroenterology and QueenieMatthew Cirrhos is Alcoholic (HCC) 2 Encounter Hepatology Joshua RodriguezB.B.SLilian Moise [address] [place] [phone] Anesthesia Event Gastroenterology and Rl, 2 Hepatology Ervin Burgos M.D. [address] [place] [phone] Surgery Gastroenterology and Mousa, Matthew ESOPHAG OGASTRODUODENOSCOPY 2 Hepatology Tyrell Rodriguez M.D. [address] [place] [address] Scheduled Procedures Name Priority Associated Diagnoses Date/Time ESOPHAGOGASTRODUODENOSCOPY Cirrhosis Alc oholic (HCC) 03/20/2022 8:45 AM ELECTRICIAN SUBSTATION SUPERVISOR Hypertension Portal (HCC) Scheduled Referrals Name Type Priority Associated Order Schedule Diagnoses Transplant Liver Outpatient Referral Routine Expe cted: office visit 01/13/2022 (clinic) (Approximate), Expires: 04/14/2023 documented as of this encounter Visit Diagnoses Not on filedocumented in this encounter Additional Health Concerns Assessment Noted Time PHQ-9 Depression Total Score: 10 10/06/2021 5:00 PM CD T documented as of this encounter Care Teams Oracle Soa Consultant Relationship Specialty Start Date End Date Ana Red P.A.-C. PCP - General Internal Medicine 12/01/[address] [place] [phone] [facility] [place] lab 08/25/21 Ervin Scrhoeder MD Referring Provider Family Medicine 03/24/[address] [place] [address] documented as of this encounter
--- OUTSIDE RECORDS SUMMARY | 2022-02-12 20:23 | XMS_ITS | Encounter Summary ---
:1990 Author Organization [facility] Address [address] [place] [address] Care Team Providers Name Role Phone Ana Red P.A.-C. Primary Care Provider [phone] Encounter Details Date Type Department Care Team Description 01/13/2022 Clinical Communication Division of [facility] Gastroenterology in Lilian Schaefer [place], [place] [address] [facility] [address] [place] [phone] Social History Tobacco Use Types Packs/Day Years [...] How often do you attend jew or Patient refused 2021 jehovah's witness services? Do you belong to any clubs or No 02/10/2022 organizations such as jew groups, unions, fraternal [...] or the highest technical, or vocational p [employer] degree you have received? 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 [address] [place] [address] Virtual Visit Transplant Matthew Jerome 2 Tyrell Rodriguez M.D. [address] [place] [phone] Office Visit Gastroenterology and Mattehw Jerome 2 Hepatology Tyrell Rodriguez M.D. [address] [place] [phone] Appointment Radiology Matthew Jerome 2 Tyrell Rodriguez M.D. [address] [place] [phone] Hospital Gastroenterology and Luischantell Matthew Cirrhos is Alcoholic (HCC) 2 Encounter Hepatology Tyrell Rodriguez M.D. [address] [place] [phone] Anesthesia Event Gastroenterology and Rl, 2 Hepatology Ervin Burgos M.D. [address] [place] [phone] Surgery Gastroenterology and LuischantellMatthew ESOPHAG OGASTRODUODENOSCOPY 2 Hepatology Tyrell Rodriguez, Lilian [address] [place] [phone] Scheduled Procedures Name Priority Associated Diagnoses Date/Time ESOPHAGOGASTRODUODENOSCOPY Cirrhosis Alc oholic (HCC) 03/20/2022 8:45 AM POULTRY DRESSING WORKER Hypertension Portal (HCC) documented as of this encounter Visit Diagnoses Not on filedocumented in this encounter Additional Health Concerns Assessment Noted Time PHQ-9 Depression Total Score: 10 10/06/2021 5:00 PM CD T documented as of this encounter Care Teams Rn Emergency Relationship Specialty Start Date End Date Ana Red P.A.-C. PCP - General Internal Medicine 12/01/[address] [place] [phone] [facility] [place] lab 08/25/21 Ervin Schroeder MD Referring Provider Family Medicine 03/24/[address] [place] [address] documented as of this encounter
--- OUTSIDE RECORDS SUMMARY | 2022-02-12 20:23 | XMS_ITS | Encounter Summary ---
:1990 Author Organization [facility] Address [address] [place] [address] Care Team Providers Name Role Phone Ana Red P.A.-C. 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 [address] [place] [phone] Virtual Visit Transplant Matthew Jerome 2 YTyrell, Lilian [address] [place] [phone] Office Visit Gastroenterology and [facility] 2 Hepatology Tyrell Rodriguez M.D. [address] [place] [phone] Appointment Radiology [facility] Matthew 2 Tyrell Rodriguez M.D. [address] [place] [phone] Hospital Gastroenterology and [facility] Cirrhos is Alcoholic (HCC) 2 Encounter Hepatology Tyrell Rodriguez M.D. [address] [place] [phone] Anesthesia Event Gastroenterology and Rl, 2 Hepatology Ervin Burgos M.D. [address] [place] [phone] Surgery Gastroenterology and [facility] ESOPHAG OGASTRODUODENOSCOPY 2 Hepatology Tyrell Rodriguez M.D. 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 PCP - General Internal Medicine 12/01/[address] [place] [phone] [facility] [place] lab 08/25/21 Ervin Schroeder MD Referring Provider Family Medicine 03/24/21 1980 [address], [place] [address] documented as of this encounter
--- OUTSIDE RECORDS SUMMARY | 2022-02-12 20:23 | XMS_ITS | Encounter Summary ---
:1990 Author Organization [facility] Address [address] [place] [address] Care Team Providers Name Role Phone Ana Red P.A.-C. Primary Care Provider Reason for Referral Physical Therapy (Routine) - Authorized Specialty Diagnoses / Procedures Referred By Contact Refer red To Contact Diagnoses Pain Low Back Unspecified Colleen Crowell M.D., M.P.H. [address] [place] [address] [phone] Referral ID Status Reason Start Expiration Visits Visits Date Date Requested Authorized [id number] Authorized Patient 01/14/2022 01/14/2023 1 1 Preference Medication Prior Authorization - Closed Specialty Diagnoses / Procedures Referred By Contact Refer red To Contact Colleen Crowell M.D ., M.P.H. [address] [place] [address] [phone] Referral ID Status Reason Start Date Expiration Date Visits Requ ested Visits Authorized [id number] Closed 1 1 Outpatient (Routine) - Authorized Specialty Diagnoses / Procedures Referred By Contact Refer red To Contact Diagnoses Pain Low Back Unspecified Colleen Crowell M.D., M.P.H. [address] [place] [address] [phone] Referral ID Status Reason Start Date Expiration Date Visits V isits Requested Authorized [id number] Authorized 01/14/2022 01/14/2023 1 1 Reason for Visit Reason Comments Abdominal Pain Auth/Cert Specialty Diagnoses / Procedures Referred By Contact Refer red To Contact Diagnoses Hepatic Encephalopathy Without Coma (HCC) Procedures ETU Referral ID Status Reason Start Date Expiration Date Visits Requ ested Visits Authorized [id number] 1 1 Encounter Details Date Type Department Care Team Description 01/09/2022 - [facility] Ludwin Garcia Jr., M.D. [address] [place] [address] [phone] Hepatic Encephalopathy Without Coma (HCC ) (Primary Dx); [facility] [address] [place] [address] [phone] Deficiency Vitamin A; [facility], rSee Bach M.D. [address] [place] [phone] Cirrhosis Alcoholic (HCC); [facility], Pain Low B ack Unspecified; Fifth Floor Decline Functional Status [R 53.81 (ICD-10-CM)] [address] [place] [address] [phone] Social History Tobacco Use Types Packs/Day Years [...] you attend adventist or Patient refused 2021 worship services? 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 Primary Team: [facility] Gastroenterology B Primary Care Providers: Ana Red P.A.-C. (General) [address] [place] [phone] Primary Care Provider Primary Care Provider Other [...] management per Radhames Neumann, Ph.D., L.P. in [facility] (Pain Rehabilitation), 10/06/2021: - virtual [...] AM CDT You were discharged from the [facility] Gastroenterology B Service. Please identify this [...] bed and don with modified independence using telegraph plant maintainer. Discussed use of telegraph plant maintainer for donning/doffing pants and socks. Offered to [...] 07/03 Months Reversed: 07/03 30 seconds: 06/05 Lkyt-Dxvo-Arjx: 0 Go/No-Go: 07/03 Address Recall: 3/3 Total Score: 25/30 (Administered 01/14/2022) RECOMMENDATIONS: Discharge Therapy Needs - OT: Ongoing skilled occupational therapy Level of Care Needed - OT: Assistance with toilet/shower transfers, Assistance with dressing, Assistance with showering/bathing, Assistance with meal preparation, Assistance with director of patient financial services, Assistance with transportation, Assistance with housekeeping, Assistance with shopping Discharge information provided on 01/14/2022 Contact information: [facility], [address], AttachmentsThe following attachments cannot be sent through Care Everywhere. Acetaminophen (By mouth) (Luxembourger)Ciprofloxacin (By mouth) (Luxembourger)Lidocaine Patch (On the skin) (Luxembourger)Prochlorperazine (By mouth) (Luxembourger) Cholecalciferol (By mouth) (Luxembourger)documented in this encounter Medications at Time of [...] Jurado M.D. - 01/12/2022 3:17 PM CDT [facility] Gastroenterology B PROGRESS NOTE SUBJECTIVE Ms. [...] / PLAN Ms. Carias is hospitalized on [facility] Gastroenterology B for evaluation and management [...] will discuss SBP ppx with her outpatient resin filterer # acute blood loss anemia, improved - [...] evaluation. She was previously admitted to the [facility] GI service during the month of October [...] any GI bleeding. Patient presented to the [facility] ED with worsening abdominal distension over the [...] started to seem confused, wanting to go [employer] grocery store, suddenly awakening every hour saying [...] 31 y.o. female who is hospitalized on [facility] Gastroenterology B for evaluation and management [...] Maker: AriadnaLobito Disposition: Home Kit Bellamy, MS4 [facility] Cornelia Jurado M.D. - 01/09/2022 12:08 [...] / PLAN Ms. Carias is hospitalized on [facility] Gastroenterology B for evaluation and management [...] AMS, concern for safe swallow. May need JACK PRIZER eval - monitor renal function and UOP [...] Treatment General Acute Onset Date: 01/09/22 Payor: [facility] [place] / Plan[place] [facility] [place]ARE RESTRICTED PLAN / Product [...] sweeping, mopping, etc. due to back pain. [facility] assists with setting up weekly pillbox. 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 Discussed use of telegraph plant maintainer for donning/doffing pants and socks. Offered to [...] 07/03 Months Reversed: 07/03 30 seconds: 06/05 Wdip-Pngv-Uejj: 0 Go/No-Go: 07/03 Address Recall: 07/03 Total Score: 25/30 [facility] Inpatient Short Form: Putting on and [...] Standardized Score: 44.27 Interpretation: Clinicians answer the [facility] Inpatient Short Form based on observed [...] with meal preparation, Assistance with director of patient financial services, Assistance with transportation, Assistance with housekeeping, Assistance [...] evaluate and treat Onset Date: 01/09/22 Payor: [facility] [place] / Plan[place] [facility] [place] REST[place]ED PLAN / Product [...] Pretransplant Recipient Evaluation Exam Deficiency Vitamin A Metal Cut Off Saw Tender Use Of Opiate Analgesic Nicotine Dependence Cigarettes [...] pain started Prior Mobility/Functional Transfers Level of Potter: Needs assistance Previous Transfer/Mobility Assistance Comments: Relied [...] needs met and questions answered. Outcome Measures [facility] Inpatient Short Form: -[facility] Basic Mobility (V.2) How much help [...] 3-5 steps with a railing?: A Little -[facility] Basic Mobility (V.2) Raw Score: 22 -[facility] Basic Mobility (V.2) Standardized Score: 47.4 Interpretation: Clinicians answer the [facility] Inpatient Short Form based on observed [...] Assessment completed on 09/30/2021 by Joel Tan EMT BASIC. Patient indicates that this information remains accurate [...] to reach out to their transplant social studies teacher, Joel Tan, for care coordination, as needed. Patient shares that she has a large and strong support systemthat is able to provide informal support as needed. Patient shares that she has a nurse through [facility] who comes out one time a week to set up her medication in a weekly pill box. Patient provided verbal consent for social work to reconnect [facility] services with [facility]. Patient shares no concerns [...] and reviewing role of an inpatient social studies teacher, engaging in rapport building, empathetic listening, active [...] Patient plans to return home with prior [facility] and family supports. Family to provide transportation at dismissal. Social work will continue to follow and provide psychosocial support and assistance with dismissal planning, as needed. Patient to discharge with home health care. Home Medical Care - Admitted Since 01/09/2022 Service Provider Selected Services Address Phone Fax Patient Preferred [facility] [address] [phone] -- Contact: intake/admissions NURSING: - Complete documentation in the Discharge Navigator including Nursing Report Info and Facility/NextLevel of Care Info - Call report and arrange for the patient???s first visit. - Send required packet of dismissal information with patient, including After Visit Summary and advance directive. PRIMARY SERVICE: - Please provide a non-[facility] home health order for resumption of previous [...] was given AVS and will be leaving [facility] with significant other. She had no further [...] Source Urine, Urine, Straight Catheter Color, U [place](!) Clarity Clear 1029 Dipstick, Urine(!): Hemoglobin, QL, [...] Appointment Radiology Matthew Jerome 2, M.B.B.S., M.D. [address] [place] [address] [phone] Appointment Gastroenterology and Adrianne, 2 Hepatology Yue Burciaga M.D. [address] [place] [phone] Virtual Visit Transplant Matthew Jerome 2, M.B.B.S., M.D. [address] [place] [phone] Office Visit Gastroenterology and Matthew Jerome 2 Hepatology Tyrell Rodriguez M.D. [address] [place] [address] [phone] Appointment Radiology Luischantell Matthew 2 YTyrell M.D. [address] [place] [address] [phone] Hospital Gastroenterology and Matthew Jerome Cirrhos is Alcoholic (HCC) 2 Encounter Hepatology Tyrell Rodriguez M.D. [address] [place] [address] [phone] Anesthesia Event Gastroenterology and Rl, 2 Hepatology Ervin Burgos M.D. [address] [place] [address] [phone] Surgery Gastroenterology and Matthew Jerome ESOPHAG OGASTRODUODENOSCOPY 2 Hepatology Tyrell Rodriguez M.D. 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 Hypertension Portal (HCC) Scheduled Referrals Name Type [...] Signature Ventricular Rate 81 BPM MUSE ECG/Min [place] Interval 146 ms MUSE QRSD Interval 90 ms MUSE QT Interval 408 ms MUSE QTC Interval 473 ms MUSE P [place] 6 degrees MUSE R [place] 55 degrees MUSE T Wave [place] 26 degrees MUSE Specimen Anatomical Collection Method Collection Time Receive d Time (Source) Location / / Volume Laterality 01/14/2022 11:11 01/14/2022 AM CDT 11:21 AM CDT Impressions MUSE - 01/14/2022 11:21 AM CDT Normal sinus rhythm Nonspecific T wave abnormality When compared with ECG of 09-JAN-2022 14 :34, QRS axis shifted left Reviewed by STERILNG Sarmiento Narrative This result has an attachment [...] CBC without Differential (01/14/2022 8:11 AM CDT) [facility] Method Time Signature Hemoglobin 7.5 (L) [...] Organization Address City/State/ZIP Code Phon e Number [facility] - [address] [place], [place] [address] [facility] [place] [address] [facility] 200 [facility] (ABNORMAL) Comprehensive Metabolic Panel (01/13/2022 8:42 PM [...] Organization Address City/State/ZIP Code Phon e Number [facility] - [address] [place] [address] [facility] [place] [address] [facility] 200 [facility] (ABNORMAL) CBC without Differential (01/13/2022 8:42 PM CDT) [facility] gist Method Time Signature Hemoglobin 7.1 [...] Organization Address City/State/ZIP Code Phon e Number [facility] - [address] [place], [place] [address] [facility] [place] [place] [address] [facility] [address] [place] Paracentesis with [...] Differential, Body Fluid (01/13/2022 2:42 PM CDT) [facility] Method Time Signature Fluid Type Peritoneal- [...] Neutrophils 1 % 01/13/2022 9:37 PM CDT DH Comment: ----REFERENCE VALUE---- Synovial: <25% Peritoneal: <25% Pleural: <25% Pericardial: <25% Lymphocytes 85 Synovial <75% % 01/13/2022 9:37 PM CDT DHPM Monocytes/Macrophages 8 Synovial <70% % 01/13/2022 9 :37 PM CDT DHPM Other Cells 6 % 01/13/2022 9:37 PM CDT DH Comment: ----REFERENCE VALUE---- The reference range and other method performance specifications have not been established for this bodyfluid. The test result must be integrated into the clinical context for interpretation. Other Cells Are: Mesothelial cells 01/14/2022 7:46 AM CDT [facility] Comment No blasts or malignant cells seen. 01/14 7:46 AM CDT [facility] Reviewed by: Ruth 01/14/2022 7:46 AM CDT [facility] Specimen Anatomical Collection Method Collection Time Receive d Time (Source) Location / / Volume Laterality Fluid 01/13/2022 2:42 PM 2 3:33 (Peritoneal CDT PM CDT Fluid) Cornelia Jurado M.D. LAB BODY FLUIDS AND STOOLS O RDERABLES Performing Organization Address City/State/ZIP Code Phon e Number [facility] - [address] [place], [place] [address] [place] [address] [facility] [address] [facility] (ABNORMAL) CBC without Differential (01/13/2022 7:09 AM CDT) [facility] Method Time Signature Hemoglobin 7.4 (L) [...] Organization Address City/State/ZIP Code Phon e Number [facility] - [address] [place], [place] [address] [facility] [place] [address] [facility] 200 [facility] (ABNORMAL) Comprehensive Metabolic Panel (01/13/2022 7:09 AM [...] Organization Address City/State/ZIP Code Phon e Number [facility] - [address] [place], [place] [address] [facility] [place] [address] [facility] [address] (ABNORMAL) Hemoglobin (01/12/2022 4:17 AM CDT) P athologist Signature Hemoglobin 7.7 (L) 11.6 - 15.0 01/12/2022 DTL g/dL 4:50 AM CDT Specimen Anatomical Collection Method Collection Time Receive d Time (Source) Location / / Volume Laterality Blood (Blood, 01/12/2022 4:17 AM 01/13/20 22 4:42 Venous) CDT AM CDT Cornelia Jurado M.D. LAB BLOOD ADD-ON Performing Organization Address City/[facility]/ZIP [facility] Phon e Number [facility] - [address] (ABNORMAL) Basic Metabolic Panel (01/12/2022 4:17 [...] Organization Address City/State/ZIP Code Phon e Number [facility] - [address] [place] [address] [facility] 200 [facility] (ABNORMAL) Hemoglobin (01/11/2022 4:35 PM CDT) athologist Signature Hemoglobin 7.9 (L) 11.6 - 15.0 01/11/2022 DTL g/dL 5:00 PM CDT Specimen Anatomical Collection Method Collection Time Receive d Time (Source) Location / / Volume Laterality Blood (Blood, 01/11/2022 4:35 PM 01/12/20 4:56 Venous) CDT PM CDT Cornelia Jurado M.D. LAB BLOOD ADD-ON Performing Organization Address City/State/ZIP Code Phon e Number [facility] [address] [address] [facility] [place] [address] (ABNORMAL) Comprehensive Metabolic Panel (01/11/2022 8:36 AM CDT) athologist Signature Potassium, S 3.9 3.6 - [...] LAB BLOOD ADD-ON Performing Organization Address City/[facility] Code Phon e Number [facility] - [address] (ABNORMAL) Hemoglobin (01/11/2022 6:44 AM CDT) P athologist Signature Hemoglobin 7.4 (L) 11.6 - 15.0 01/11/2022 DTL g/dL 7:29 AM CDT Specimen Anatomical Collection Method Collection Time Receive d Time (Source) Location / / Volume Laterality Blood (Blood, 01/11/2022 6:44 AM 01/12/20 22 7:20 Venous) CDT AM CDT Colleen Crowell M.D., M.P.H. LAB BLOOD ADD-ON Performing Organization Address City/[facility]/ZIP Code Phon e Number [facility] - [address] [place] (ABNORMAL) Hemoglobin (01/10/2022 10:11 PM CDT) athologist Signature Hemoglobin 7.9 (L) 11.6 - 15.0 01/10/2022 DTL g/dL 10:30 PM CDT Specimen Anatomical Collection Method Collection Time Receive d Time (Source) Location / / Volume Laterality Blood (Blood, 01/10/2022 10:11 01/10/2022 Venous) PM CDT 10:24 PM CDT Colleen Crowell M.D., M.P.H. LAB BLOOD ADD-ON Performing Organization Address City/State/ZIP Code Phon e Number [facility] - [facility] [address] [place], [place] [address] [facility] [place] [address] [facility] 200 [facility] (ABNORMAL) Comprehensive Metabolic Panel (01/10/2022 10:11 PM [...] Organization Address City/State/ZIP Code Phon e Number [facility] - [address] [place], [place] [address] [facility] [place] [place] [address] [facility] [address] (ABNORMAL) CBC without Differential (01/10/2022 10:11 PM CDT) [facility] Method Time Signature Hemoglobin 7.7 (L) [...] M.P.H. LAB BLOOD ADD-ON Performing Organization Address [facility] Phon e Number [facility] [address] [place] [address] (ABNORMAL) Hemoglobin (01/10/2022 8:27 PM CDT) athologist Signature Hemoglobin 7.7 (L) 11.6 - 15.0 01/10/2022 DTL g/dL 8:47 PM CDT Specimen Anatomical Collection Method Collection Time Receive d Time (Source) Location / / Volume Laterality Blood (Blood, 01/10/2022 8:27 PM 01/11/20 22 8:41 Venous) CDT PM CDT Colleen Crowell M.D., M.P.H. LAB BLOOD ADD-ON Performing Organization Address City/[facility] Phon e Number [facility] - [address] [place] [address] [address] [place] [address] Transfuse Red Blood Cells : (01/10/2022 [...] LAB URINE ORDERABLES Performing Organization Address City/[facility] Phon e Number [facility] - [address] (ABNORMAL) Hemoglobin (01/10/2022 12:22 PM CDT) athologist Signature Hemoglobin 6.4 (L) 11.6 - 15.0 01/10/2022 DHPM g/dL 1:29 PM CDT Specimen Anatomical Collection Method Collection Time Receive d Time (Source) Location / / Volume Laterality Blood (Blood, 01/10/2022 12:22 01/10/2022 Venous) PM CDT 12:46 PM CDT Cornelia Jurado M.D. LAB BLOOD ADD-ON Performing Organization Address City/[facility] Phon e Number [facility] - [address] [place], [place] [id number] [place] [address] [place] Liver with Liver Doppler (01/10/2022 11:10 [...] atio <1.0. All other fluids refer to www.[employer] for further inter pretive information. This test has been modified from the man ufacturer's instructions. Its performance characteri stics were determined by [facility] in a manner consistent wi CLIA [...] Organization Address City/State/ZIP Code Phon e Number [facility] - [address] [place], [place] [address] [facility] [place] [address] [facility] [address] [facility] Albumin, Body Fluid (01/10/2022 9:51 AM [...] process. ?? All other fluids refer to www.[facility] [facility].com for further interpretive information. This t est has been modified from the motor vehicle salesperson's instruc tions. Its performance characteristics were determi [...] Organization Address City/State/ZIP Code Phon e Number [facility] - [address] [place], [place] [address] [facility] [place] [address] [facility] 200 [facility] Lactate Dehydrogenase (LD), Body Fluid (01/10/2022 9:51 [...] clinical findings. All other fluids refer to www.[facility]com for further interpretive information. This test [...] AND STOOLS O JOSE Performing Organization Address City/[facility]/ZIP Code Phon e Number [facility] - [address] [place], [place] [address] [facility] [place] [address] [facility] [address] [facility] Protein, Total, Body Fluid (01/10/2022 9:51 AM [...] ical findings. All other fluids refer to www.[facility]com for further inter pretive information. This test has been modified from the motor vehicle salesperson's instructions. Its perform ance characteristics were determined [...] Organization Address City/State/ZIP Code Phon e Number [facility] - [address] [place], [place] [address] [facility] [place] [place] [address] [facility] [address] Glucose, Body Fluid [...] of infection. All other fluids refer to www.[facility].com for further inter pretive information. This test has been modified from the man ufacturer's instructions. Its performance characteri stics were determined by [facility] in a manner co nsistent with CLIA requirements. This test has not been norah ared or approved by the U.S. Food and Drug Administration. Fluid Type, Glucose Fluid, Peritoneal Fluid 2021 11:17 AM CDT [facility] Specimen Anatomical Collection Method Collection Time Receive d Time (Source) Location / / Volume Laterality Fluid 01/10/2022 9:51 AM 2 (Peritoneal CDT 11:51 AM CDT Fluid) Cornelia Jurado M.D. LAB BODY FLUIDS AND STOOLS O JOSE Performing Organization Address [facility] Phon e Number [facility] - [address] [place] [address] Bacterial Culture, Aerobic + Susc (01/10/2022 9:51 AM CDT) [facility] Signature Bacterial No growth 01/15/2022 [facility] Culture, after 5 8:05 AM CDT Aerobic + Susc days of incubation. Specimen Anatomical Collection Method Collection Time Receive d Time (Source) Location / / Volume Laterality Fluid 01/10/2022 9:51 AM 2 (Peritoneal CDT 11:24 AM CDT Fluid) Comment: Specimen Source Site: Fluid Narrative [facility] - 01/15/2022 8:05 AM CDT Bacterial Culture: Received Bactec aerob ic and Bactec anaerobic bottles Cornelia Jurado M.D. LAB MICROBIOLOGY - GENERAL O JOSE Performing Organization Address City/[facility]/ZIP [facility] Phon e Number [facility] - [address] Cell Count and Differential, Body Fluid (01/10/2022 9:51 AM CDT) [facility] Method Time Signature Fluid Type Peritoneal- 01/10/2022 [facility] Paracentesi 11:46 AM CDT s Gross Serous 01/10/2022 [facility] Appearance 11:46 AM CDT Total Nucleated 1047 /mcL 01/10/2022 [facility] Cells 11:46 AM CDT Comment: ----REFERENCE VALUE---- [...] Neutrophils 74 % 01/11/2022 12:16 AM CDT [facility] Comment: ----REFERENCE VALUE---- Synovial: <25% Peritoneal: <25% Pleural: <25% Pericardial: <25% Lymphocytes 5 Synovial <75% % 01/11/2022 12:16 AM CD T [facility] Monocytes/Macrophages 17 Synovial <70% % 01/11/2022 1 2:16 AM CDT [facility] Other Cells 4 % 01/11/2022 12:16 AM CDT [facility] Comment: ----REFERENCE [...] se en. Degenerative neutrophils present. Reviewed by: Tech 01/11/2022 5:44 AM CDT [facility] Specimen Anatomical Collection Method Collection Time Receive d Time (Source) Location / / Volume Laterality Fluid 01/10/2022 9:51 AM 2 (Peritoneal CDT 11:28 AM CDT Fluid) Cornelia Jurado M.D. LAB BODY FLUIDS AND STOOLS O RDERABLES Performing Organization Address City/State/ZIP Code Phon e Number [facility] - [address] [place], [place] [address] [address] [place] [address] [facility] [address] [facility] (ABNORMAL) Hemoglobin (01/10/2022 4:04 AM CDT) P athologist Signature Hemoglobin 7.9 (L) 11.6 - 15.0 01/10/2022 [facility] g/dL 4:31 AM CDT Specimen Anatomical Collection Method Collection Time Receive d Time (Source) Location / / Volume Laterality Blood (Blood, 01/10/2022 4:04 AM 01/11/20 4:29 Venous) CDT AM CDT Cornelia Jurado M.D. LAB BLOOD ADD-ON Performing Organization Address City/State/ZIP Code Phon e Number [facility] - [address] [place] [address] 05 [place] [address] [facility] (ABNORMAL) Comprehensive Metabolic Panel (01/10/2022 4:04 [...] Organization Address City/State/ZIP Code Phon e Number [facility] - [address] [place] [address] 05 [facility] [place] [address] Laboratories-[address] (ABNORMAL) CBC with Differential, Blood (01/10/2022 4:04 AM CDT) [facility] Method Time Signature Hemoglobin 7.8 (L) [...] Organization Address City/State/ZIP Code Phon e Number [facility] - 200 [place], [place] [address] [facility] [place] [place] [address] [facility] 200 [facility] (ABNORMAL) Cystatin C with Estimated GFR (01/10/2022 [...] LAB BLOOD ADD-ON Performing Organization Address City/[facility] Phon e Number [facility] - 200 [place], [place] [address] [facility] [place] [place] [address] Laboratories-[address] (ABNORMAL) Hepatic Function Panel (01/10/2022 4:04 AM CDT) [facility] Method Time Signature Bilirubin, Total, S 22.5 [...] LAB BLOOD ADD-ON Performing Organization Address City/[facility] Code Phon e Number [facility] 200 [place], [place] [address] [place] [address] (ABNORMAL) Haptoglobin (01/10/2022 4:04 AM CDT) [facility] Haptoglobin, S <14 (L) 30 - 200 01/13/2022 [facility] mg/dL 1:56 PM CDT Specimen Anatomical Collection Method Collection Time Receive d Time (Source) Location / / Volume Laterality Blood (Blood, 01/10/2022 4:04 AM 01/13/20 6:42 Venous) CDT AM CDT Cornelia Jurado M.D. LAB BLOOD ADD-ON Performing Organization Address City/[facility]/ZIP Code Phon e Number [facility] [address] [place], [place] [address] [address] [place] [address] [place] [address] [place] (ABNORMAL) LD (Lactate Dehydrogenase) (01/10/2022 4:04 AM CDT) [facility] Monica 236 (H) 122 - 222 01/10/2022 [facility] LD U/L 5:08 AM CDT Specimen Anatomical Collection Method Collection Time Receive d Time (Source) Location / / Volume Laterality Blood (Blood, 01/10/2022 4:04 AM 01/11/20 22 4:46 Venous) CDT AM CDT Cornelia Jurado M.D. LAB BLOOD NON ADD-ON Performing Organization Address City/State/ZIP Code Phon e Number [address] 559 [address] [place] [address] (ABNORMAL) SPSMA Result (01/10/2022 4:04 AM CDT) [facility] Method Time Signature Neutrophilic Segs 76 [...] LAB BLOOD ADD-ON Performing Organization Address City/[facility] Phon e Number [facility] - [address] Magnesium (01/10/2022 4:04 AM CDT) P athologist Signature Magnesium, S 1.9 1.7 - 2.3 01/10/2022 [facility] mg/dL 5:18 AM CDT Specimen Anatomical Collection Method Collection Time Receive d Time (Source) Location / / Volume Laterality Blood (Blood, 01/10/2022 4:04 AM 01/11/20 4:54 Venous) CDT AM CDT Cornelia Jurado M.D. LAB BLOOD ADD-ON Performing Organization Address City/[facility] Phon e Number [facility] - [address] [place], [place] [id number] [place] [address] First [facility] Transfuse Red Blood Cells : (01/10/2022 1:51 [...] Laterality Blood (Blood, 01/09/2022 9:13 PM 01/10/20 Venous) CDT 10:06 PM CDT Cornelia Jurado M.D. LAB BLOOD NON ADD-ON Performing Organization Address City/[facility] Phon e Number [facility] [address] (ABNORMAL) Hemoglobin (01/09/2022 9:13 PM CDT) P athologist Signature Hemoglobin 6.6 (L) 11.6 - 15.0 01/09/2022 [facility] g/dL 11:14 PM CDT Specimen Anatomical Collection Method Collection Time Receive d Time (Source) Location / / Volume Laterality Blood (Blood, 01/09/2022 9:13 PM 01/10/20 9:40 Venous) CDT PM CDT Cornelia Jurado M.D. LAB BLOOD ADD-ON Performing Organization Address City/State/[facility] Phon e Number [facility] [address] Transfuse Red Blood Cells : (01/09/2022 [...] Jurado M.D. IMTristan DIAGNOSTIC IMAGING PROCE DURES (ABNORMAL) Lactate (01/09/2022 3:19 PM CDT) athologist Signature Lactate, P 2.9 (H) 0.5 - 2.2 01/09/2022 [facility] mmol/L 3:48 PM CDT Specimen Anatomical Collection Method Collection Time Receive d Time (Source) Location / / Volume Laterality Blood (Blood, 01/09/2022 3:19 PM 01/10/20 22 3:27 Venous) CDT PM CDT Wilfredo Vigil P.A.-C. LAB BLOOD NON ADD-ON Performing Organization Address City/State/ZIP Code Phon e Number [facility] - [address] [place], [place] [address] [facility] [place] [address] [facility] [address] ECG 12 Lead (01/09/2022 2:34 PM CDT) P athologist Signature Ventricular Rate 108 BPM MUSE ECG/Min [place] Interval 158 ms MUSE QRSD Interval 86 ms MUSE QT Interval 360 ms MUSE QTC Interval 482 ms MUSE P [place] 85 degrees MUSE R [place] 117 degrees MUSE T Wave [place] 84 degrees MUSE Specimen Anatomical Collection Method [...] POC, V Asymptomatic (01/09/2022 1:45 PM CDT) [facility] Method Time Signature SARS Undetected Undetected 01/09/2022 [facility] Coronavirus-2 2:05 PM CDT , RNA, Rapid POC, V Comment: Negative for SARS-CoV-2. The [employer] COVID-19 test is a molecular ojnathan t for SARS-CoV-2, the virus that causes COVID- 19. A Negative result means that the [employer] COV ID-19 test did not detect SARS-CoV-2 virus in your sample. [employer] COVID-19 test uses the [employer] nitoring System. This test has received Emergency Use Authorization (EUA) by the U.S. Food and Drug Administration (FDA) and is used per man ufacturer instructions. Performance characteristic s were verified by [facility] in a manner consistent with CLIA requirements. Fact sheets for this Emerg ency Use Authorization (EUA) can be found at the following links: Providers: https://[employer]/documentation/prov iders.pdf Patients: https://[employer]com/documentation/deshawn ents.pdf SARS Coronavirus 2, Source Nasopharynx DEFAULT 01/09/2022 2:05 PM CDT [facility] Specimen Anatomical Collection Method Collection Time Receive d Time (Source) Location / / Volume Laterality Varies 01/09/2022 1:45 PM 1:45 (Nasopharynx) CDT PM CDT Reese Reyes M.D. LAB MICROBIOLOGY - GENERAL O RDERABLES Performing Organization Address [facility] Phon e Number PERFORMING LABS, [place] [address] INTERFACE Ref Interface 200 [facility] DTLR Performing Labs, [place] [address] Interface 200 [facility] Bacteria / Raudel Culture, Blood # 2 (01/09/2022 10:11 AM CDT) [facility] [place] [employer] Method Time Signature Bacteria/Adriana No growth 01/14/2022 DTL da Culture, after 5 11:02 AM CDT Blood days of incubation. Specimen (Source) Anatomical Collection Method Collection Time Re ceived Time Location / / Volume Laterality Blood (Blood, 01/09/2022 10:11 01/09/2022 Peripheral Draw) AM CDT 10:32 AM CD T Comment: Specimen Source Site: Blood Narrative [facility] - [facility] - 01/14/2022 11:02 AM CDT Received Bactec Peds bottle Wilfredo Vigil P.A.-C. LAB MICROBIOLOGY - GENERAL O RDERABLES Performing Organization Address City/[facility] Phon e Number [facility] - [address] [place] [address] 05 [facility] [place] [place] [address] [facility] 200 [facility] (ABNORMAL) Dipstick, Urine (01/09/2022 10:04 AM CDT) [facility] [place] [employer] Method Time Signature Hemoglobin, Negative Negative 01/09/2022 [...] LAB URINE ORDERABLES Performing Organization Address City/[facility]/ZIP Code Phon e Number [facility] - [address] [place], [place] [address] 05 [place] [address] pH, Random, Urine (01/09/2022 10:04 AM CDT) athologist Signature pH, Random, U 5.9 4.5 - 8.0 01/09/2022 [facility] 10:48 AM CDT Specimen Anatomical Collection Method Collection Time Receive d Time (Source) Location / / Volume Laterality Urine 01/09/2022 10:04 01/09/2022 AM CDT 10:21 AM CDT Migue Garcia Jr., M.D. LAB URINE ORDERABLES Performing Organization Address City/[facility]/ZIP Code Phon e Number [facility] - [address] Osmolality, Urine (01/09/2022 10:04 AM CDT) athologist Signature Osmolality, U 428 150 - 1150 01/09/2022 DT mOsm/kg 10:48 AM CDT Specimen Anatomical Collection Method Collection Time Receive d Time (Source) Location / / Volume Laterality Urine 01/09/2022 10:04 01/09/2022 AM CDT 10:21 AM CDT Migue Garcia Jr., M.D. LAB URINE ORDERABLES Performing Organization Address City/[facility]/ZIP [facility] Phon e Number [facility] - 200 [place] [phone] (ABNORMAL) Microscopic Manual (01/09/2022 10:04 AM [...] LAB URINE ORDERABLES Performing Organization Address City/[facility] Phon e Number [facility] - [address] Bacterial Culture, Aerobic + Susc, Urine (01/09/2022 10:04 AM CDT) [facility] gist Method Time Signature Urine Culture [...] - GENERA L ORDERABLES Performing Organization Address City/[facility] Phon e Number [facility] - [address] [place] [address] (ABNORMAL) Urinalysis with Microscopic: Urine, Straight Catheter (01/09/2022 10:04 AM CDT) [facility] gist Method Time Signature Source Urine, 01/09/2022 DTL Urine, 10:21 AM CDT Straight Catheter Color, U [place] (A) 01/09/2022 DTL 10:21 AM CDT Clarity, [...] LAB URINE ORDERABLES Performing Organization Address City/[facility] Code Phon e Number [facility] - [address] [place], [place] [address] [facility] DTL [address] Lactate, POCT (01/09/2022 10:04 AM CDT) [facility] Signature Lactate, POCT Collected DEFAULT 01/09/2022 S[facility]X 10:04 AM CDT Specimen Anatomical Collection Method Collection Time Receive d Time (Source) Location / / Volume Laterality Blood (Blood, 01/09/2022 10:04 01/09/2022 Venous) AM CDT 10:04 AM CDT Wilfredo Vigil P.A.-C. LAB POCT ORDERABLES - DEVICE Performing Organization Address City/[facility] Phon e Number [facility] - [address] [place], [place] [address] [facility] [place] [place] [address] [facility] [address] Bacteria / Raudel Culture, Blood #1 [...] GENERAL O RDERABLES Performing Organization Address City/[facility] Phon e Number [facility] - [address] [place] [address] Glucose, POCT (01/09/2022 10:04 AM CDT) [facility] Time Signature Glucose, POCT, Collected DEFAULT 01/09/2022 SMLX B 10:04 AM CDT Specimen Anatomical Collection Method Collection Time Receive d Time (Source) Location / / Volume Laterality Blood (Blood, 01/09/2022 10:04 01/09/2022 Capillary) AM CDT 10:04 AM CDT Wilfredo Vigil P.A.-C. LAB POCT ORDERABLES-MANUAL Performing Organization Address City/[facility] Phon e Number [facility] - [address] SMLX [address] (ABNORMAL) Hepatic Function Panel (01/09/2022 10:03 [...] P.A.-C. LAB BLOOD ADD-ON Performing Organization Address City/[facility] Phon e Number [facility] - [address] [place] [address] [place] [address] Laboratories-[address] (ABNORMAL) Prothrombin Time (PT) (01/09/2022 10:03 AM CDT) Patholo gist Method Time Signature Prothrombin 28.3 (H) 9.4 - 12.5 01/09/2022 [facility] Time, P sec 10:45 AM CDT INR 2.5 0.9 - 1.1 01/09/2022 [facility] 10[facility] AM CDT Comment: ----ADDITIONAL INFORMATION---- Standard intensity warfarin therapeutic range: 2.0 to 3.0 ?? High intensity warfarin therapeutic rang e: 2.5 to 3.5 Specimen Anatomical Collection Method Collection Time Receive d Time (Source) Location / / Volume Laterality Blood (Blood, 01/09/2022 10:03 01/09/2022 Venous) AM CDT 10:17 AM CDT Wilfredo Vigil P.A.-C. LAB BLOOD ADD-ON Performing Organization Address City/State/[facility] Phon e Number [facility] - [address] [place] [address] [place] [address] [place] [address] Laboratories-[address] (ABNORMAL) CBC with Differential, Blood (01/09/2022 [...] Organization Address City/State/ZIP Code Phon e Number [facility] - [address] [place], [place] [address] [place] [address] Laboratories-[address] hCG (Human Chorionic Gonadotropin), Quantitative, (01/09/2022 [...] Address City/State/ZIP Code Phon e Number [facility] - [address] [place] [address] Laboratories-[address] (ABNORMAL) Basic Metabolic Panel (01/09/2022 10:02 [...] 10.0 mg/dL 01/09/2022 10:3 3 AM CDT [facility] Glucose, P 137 70 - 140 mg/dL 01/09/2022 10:33 AM CDT [facility] Specimen Anatomical Collection Method Collection Time Receive d Time (Source) Location / / Volume Laterality Blood (Blood, 01/09/2022 10:02 01/09/2022 Venous) AM CDT 10:17 AM CDT Wilfredo Vigil P.A.-C. LAB BLOOD ADD-ON Performing Organization Address City/State/ZIP Code Phon e Number [facility] - [address] [place], [place] [address] [facility] [place] [address] [facility] 200 [facility] [place] [address] [facility] [address] Glucose, POCT (01/09/2022 [...] Address City/State/ZIP Code Phon e Number POC [facility] [address] [place] [address] [facility] [place] [address] [place] [facility] [address] (ABNORMAL) Dipstick, POCT, Urine (01/09/2022 10:00 AM CDT) Patholo gist Method Time Signature Glucose, Negative Negative 01/09/2022 [facility] POCT, U mg/dL 10:02 AM CDT Ketone, POCT, Negative Negative 01/09/2022 [facility] U mg/dL 10:02 AM CDT Specific 1.015 1.005 - 01/09/2022 [facility] [place], 1.030 10:02 AM CDT POCT, U Blood, [...] ORDERABLES - DEVICE Performing Organization Address City/[facility]/ZIP Code Phon e Number POC RST [facility] 200 [place] [address] [place]PATIENT [place] [address] [facility] 200 [facility] (ABNORMAL) Ammonia (01/09/2022 9:59 AM CDT) P athologist Signature Ammonia, P 119 (H) <=30 01/09/2022 DTL mcmol/L 11:05 AM CDT Specimen Anatomical Collection Method Collection Time Receive d Time (Source) Location / / Volume Laterality Blood (Blood, 01/09/2022 9:59 AM 01/10/20 22 Venous) CDT 10:24 AM CDT Wilfredo Vigil P.A.-C. LAB BLOOD NON ADD-ON Performing Organization Address City/[facility]/ZIP Code Phon e Number [facility] - [address] [place], [place] [address] [facility] [place] [address] [facility] [address] [facility] Lipase (01/09/2022 9:56 AM CDT) P athologist Signature Lipase, S 25 13 - 60 U/L 01/09/2022 3:00 DTL PM CDT Specimen Anatomical Collection Method Collection Time Receive d Time (Source) Location / / Volume Laterality Blood (Blood, 01/09/2022 9:56 AM 01/10/20 22 2:41 Venous) CDT PM CDT Cornelia Jurado M.D. LAB BLOOD ADD-ON Performing Organization Address City/State/ZIP Code Phon e Number [facility] - [address] [place], [place] [address] [facility] [place] [address] [facility] [address] Type and Screen (with reflex Antibody ID) (01/09/2022 9:56 AM CDT) Patholo gist Method Time Signature ABORh B Pos Not 01/09/2022 STR[facility] applicable 12:41 PM CDT Antibody Negative Negative 01/09/2022 [facility] Screen 12:55 PM CDT Type & Screen 01/12/2022 01/09/2022 STR[facility] Expiration 23:59 12:41 PM CDT Testing [place] DEFAULT 01/09/2022 STRM Location 12:21 PM CDT Specimen Anatomical Collection Method Collection Time Receive d Time (Source) Location / / Volume Laterality Blood (Blood, 01/09/2022 9:56 AM 01/10/20 22 Venous) CDT 12:21 PM CDT Leslie Gupta M.D. LAB BLOOD BANK TEST YO ELISE Performing Organization Address City/State/ZIP Code Phon e Number [facility] - [address] [place], [place] [address] [facility] [place] [address] [facility] [address] (ABNORMAL) Lactate, POCT (01/09/2022 9:53 AM [...] Address City/State/ZIP Code Phon e Number POC [facility] [address] [place] [address] [facility] [place] [address] [facility] [address] documented in this encounter [...] 1 mg, oral, Daily, First dose on 01/10/22 at 0900 Given 01/13/2022 8:13 AM CDT [...] 825 (Ne w Bag - Provider: Yanira Martinez, RSumaN.) 60 g, intravenous, Once, On Wed01/12/22 at 0700, For 1 dose, If no infusion rate specified: Administer the 25% solution at 100 mL/hr cefTRIAXone in dextrose (iso-osm) IVPB 1 g (ROCEPHIN) (CANCELED) 1506 (New Bag - Provider: Yanira Martinez RSumaN.) 1600 (New Bag - Provider: Leandra morris [...] (LASIX) 0939 (Given - Provider: Leandra Estevez RGabby) 40 mg, oral, Daily, First dose on Wed01/14/22 at 0900 lactulose solution 10 g (CHRONULAC) 0821 (Given - Prov ider: Yanira Martinez R.N.)1506 (Given - Provider: Yanira Martinez R.N.)2000 (Given - Provider: Kary Dickson R.N.) 0813 (Given - Provider: Leandra Estevez R.N.)1338 (Not Given - Provider: Miabella M Estevez, R.N. - Reason: Patient/family refused)2015 (Given - Provider: Kindra Knight R.N.) 0941 (Given - Provider: Leandra Estevez R.N.)1511 [...] breakf ast and dinner, First dose on 01/10/22 at [...] R.N.) 2015 (Given - Provider: Kindra Knight RSumaNSuma) 50 mg, oral, Daily at bedtime, First [...] Leandra Estevez R.N.)2015 (Given - Provider: Kindra S Kloos, R.N.) 0155 (Given - Provider: Andrew VilaNSuma)0939 (Given - Provider: eLandra Estevez R.N.)1627 (Given - Provider: Kain Winston RSumaNSuma) 500 mg, oral, Every 6 hours PRN, mild pa in or score 1-3 of 10, moderate pain or score 4-6 of 10, Starting on Wed01/13/22 at 1322 diclofenac sodium 1 % gel 2 g (VOLTAREN) 1251 (Given - Provider: Leandra Estevez R.N.)2017 (Given - Provider: Andrew VilaN.) 0155 (Given - Provider: Kindra Knight R.N.) [...] 0311 ( Given - Provider: Almita Britt RGabby)0821 (Given - Provider: Yaniar Martinez RSumaNSuma) 1 mg, oral, Every 4 hours PRN, moderate pain or score 4-6 of 10, Starting on Wed01/09/22 at 1615 HYDROmorphone tablet 1 mg (DILAUDID) () 1999 (Tristan iven - Provider: Kary Dickson RSumaNSuma) 0812 (Given - Provider: Leandra Estevez R.N.) [...] documented as of this encounter Care Teams Ruffling Machine Operator Relationship Specialty Start Date End Date Ana Red P.A.-C. PCP - General Internal Medicine 12/01/[address] [place] [phone] [facility] [place] lab 08/25/21 Ervin Schroeder MD Referring Provider Family Medicine 03/24/[address] [place] [id number] documented as of this encounter
--- OUTSIDE RECORDS SUMMARY | 2022-02-12 20:23 | XMS_ITS | Encounter Summary ---
:1990 Author Organization [facility] Address [address] [place] [address] Care Team Providers Name Role Phone Ana Red P.A.-C. Primary Care Provider [phone] Reason for Referral Transplant (Routine) - Closed Specialty Diagnoses / Procedures Referred By Contact Refer red To Contact Transplant Surgery / Adeline Frazier Royer Transplant Lilian Gannon, Ph.D. [address] [place] [phone] Referral ID Status Reason Start Date Expiration Date Visits Requ ested Visits Authorized [id number] Closed 01/13/2022 01/12/2025 1 1 Scheduling Instructions Lab work to be done on her next visit to [place] Reason for Visit Transplant (Routine) - Closed Specialty Diagnoses / Procedures Referred By Contact Refer red To Contact Transplant Surgery / Adeline Frazier Royer Transplant Lilian Gannon, Ph.D. [address] [place] [phone] Referral ID Status Reason Start Date Expiration Date Visits Requ ested Visits Authorized [id number] Closed 10/10/2021 10/10/2022 1 1 Encounter Details Date Type Department Care Team Description 01/13/2022 Telemedicine Adeline Antoine M.D., Ph.D. [address] [place] [address] Moderate Or Severe [facility] Cathleen Elena Loretta Use Disorder Transplantation and (Depende nce) Alcohol Clinical Regeneration in [facility] ission ([facility]) [place], [place] (Primary Dx) [address] [place] [address] Social History Tobacco Use Types Packs/Day [...] you attend muslim or Patient refused 2021 yazidism services? Do [...] Date Recorded Female 04/12/2021 7:39 PM SUPERINTENDENT COMMISSARY documented as of this encounter Progress Notes Elena Connolly - 01/13/2022 11:30 AM CDT Service Date: 01/13/22 SUBJECTIVE DEMOGRAPHICS Patient: Catia Carias Date of : 1990 Age: 31 y.o. Gender: female Address: [address] [place] [phone] Appointment conducted via real-time audio/video technology by GARY Coleman in [facility] to the patient in [place] [id number]. . CHIEF COMPLAINT / REASON FOR VISIT Transplant Addiction Psychiatry Individual follow up session Pre-transplant, Liver Supervising Steam Hand: Dr. Marva Frazier M.D. Ph.D Total Counseling Time: 15 Minutes HISTORY OF PRESENT ILLNESS I had the opportunity to review the patient's medical record as it relates to transplant addiction psychiatry. The patient is a 31 y.o. female from [place], [place]. Today, the patient is presenting alonefrom [...] by history; currently medicinal cannabis use #3 Fdc Use Of Opiate Analgesic #4 Nicotine Dependence Cigarettes #5 Mood Disorder Unspecified #6 Anxiety Disorder Unspecified #7 Eating disorder (purging and restricting), by history #8 Chronic Pain Syndrome #9 Hepatic Encephalopathy moderate COUNSELOR IMPRESSION: The patient is a pleasant 31 year old single woman calling in from a hospital room in [facility]. She reports being hospitalized with encephalopathy confusion. She verbalized a great deal of commitment to enter treatment and to do whatever I have to to get a transplant. She reports having begun the intake process for [facility]'s virtual Addiction Treatment Program. She is aware [...] management per Radhames Neumann, Ph.D., L.P. in [place] [facility]ry (Pain Rehabilitation), 10/06/2021: - virtual [...] the patient via the portal and via [employer] ([place] Upon it'sreturn we can check her insurance coverage for [facility]. If her insurance [...] Transplant 2 Appointment Radiology Matthew Jerome 2, M.B.BGraeme, Lilian [address] [place] [phone] Appointment Gastroenterology and Adrianne, 2 Hepatology Yue Burciaga M.D. [address] [place] [phone] Virtual Visit Transplant Matthew Jerome 2 YTyrell M.D. [address] [place] [phone] Office Visit Gastroenterology and Matthew Jerome 2 Hepatology Tyrell Rodriguez M.D. [address] [place] [phone] Appointment Radiology LuisMatthew abdul 2 Tyrell Rodriguez M.D. [address] [place] [phone] Hospital Gastroenterology and Queenie Matthew Cirrhos is Alcoholic (HCC) 2 Encounter Hepatology Tyrell Rodriguez M.D. [address] [place] [phone] Anesthesia Event Gastroenterology and Rl, 2 Hepatology Ervin Burgos M.D. [address] [place] [phone] Surgery Gastroenterology and Matthew Jerome ESOPHAG OGASTRODUODENOSCOPY 2 Hepatology Tyrell Rodriguez M.D. [address] [place] [phone] Scheduled Procedures Name Priority Associated Diagnoses Date/Time ESOPHAGOGASTRODUODENOSCOPY Cirrhosis Alc oholic (HCC) 03/20/2022 8:45 AM SUPERINTENDENT COMMISSARY Hypertension Portal (HCC) Scheduled Referrals Name Type Priority Associated Order Schedule Diagnoses Transplant Liver Outpatient Referral Routine Expe cted: office visit 02/12/2022 (clinic) (Approximate), Expires: 01/13/2023 documented as of this encounter Results Ethyl Glucuronide Screen with Reflex, Urine (02/12/2022 10:29 AM CDT) [facility] Method Time Signature Ethyl Negative Cutoff: 02/12/2022 [facility] Glucuronide Scrn 500 ng/mL 2:35 PM CDT w/Reflex, U Comment: ----ADDITIONAL INFORMATION---- This test was developed and its performa nce characteristics determined by [facility] in a manner consistent with CLIA [...] Code Phon e Number [facility] [address] [place] [address] [place] Drug Abuse Survey with Confirmation, Urine (02/12/2022 10:29 AM CDT) [facility] Method Time Signature Alcohol Negative Cutoff: 10 02/12/2022 [facility] mg/dL 3:10 PM CDT Amphetamines [...] 50 ng/mL 02/12/2022 3 :10 PM CDT [facility]SC Comment: This immunoassay targets delta-9 tetrahy drocannabinol [...] Ph.D. LAB URINE ORDERABLES Performing Organization Address City/State/[facility] Code Phon e Number [facility] [address] [place] [address] [place] [phone] [place] [address] [place] documented in this encounter Visit Diagnoses Diagnosis Cirrhosis Alcoholic (HCC) Hypertension Portal (HCC) Moderate Or Severe Use Disorder (Depende nce) Alcohol Remission (HCC) - Primary Cirrhosis Alcoholic (HCC) Hypertension Portal (HCC) documented in this encounter Additional Health Concerns Assessment Noted Time PHQ-9 Depression Total Score: 10 10/06/2021 5:00 PM CD T documented as of this encounter Care Teams Dietitian Teacher Relationship Specialty Start Date End Date Ana Red P.A.-C. PCP - General Internal Medicine 12/01/[address] [place] [phone] [facility] 08/25/21 Ervin Schroeder MD Referring Provider Family Medicine 03/24/[address] [place] [phone] documented as of this encounter
--- OUTSIDE RECORDS SUMMARY | 2022-02-12 20:23 | XMS_ITS | Encounter Summary ---
:1990 Author Organization [facility] Address [address] [place] [address] Care Team Providers Name Role Phone Ana Red P.A.-C. Primary Care Provider [phone] Reason for Visit Transplant (Routine) - Closed Specialty Diagnoses / Procedures Referred By Contact Refer red To Contact Transplant Surgery / Joel Tan [place] [facility] L.I.C.S.W., M.S.W. [address] [place] [address] Referral ID Status Reason Start Date Expiration Date Visits Requ ested Visits Authorized [id number] Closed 10/29/2021 10/29/2022 1 1 Encounter Details Date Type Department Care Team Description 01/13/2022 Telemedicine Joel Sage hosis Alcoholic Center for L, L.I.C.S.W., (HCC) (Primar y Dx) Transplantation and M.S.W. Clinical Regeneration in [address] [place], [place] [address] [facility] [address] [place] [address] [phone] Social History Tobacco Use Types Packs/Day Years [...] you attend islam or Patient refused 2021 voodoo services? 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 - 01/13/2022 10:45 AM CDT Consult conducted remotely via real-time audio/video technology through HIPAA compliant Zoom by Shala Shields, [place] to the patient at her hospital room: [place] [address]. This Video Visit was performed during the [...] follow up. She is currently hospitalized at [facility]. 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 He stated he has spoken with [...] medical marijuana. She stated she has [facility], Ana Red PA-C, at [facility], whom she states has prescribed herFlexeril due to a pulled muscle in the patient's back and also back spasms. The patient is wonderingabout working with physical therapy after her discharge from the hospital. I advised the patient to contact her nurse and/or doctor while she is currently hospitalized to inquire about this and have also informed inpatient director social welfare, Alexei Deshpande, [facility], about the patient's inquiry. The patient stated [...] management per Radhames Neumann, Ph.D., L.P. in [place] [facility] (Pain Rehabilitation), 10/06/2021: - virtual [...] her in the mail in regards to [facility] outpatient addiction program and believes they are [...] patient met with Dr. Keen with [facility] Psychiat[facility] on 10/22/2021 who indicatedthe following: She [...] 2 Appointment Radiology LuisMatthew abdul 2 Tyrell Rodriguez M.D. [address] [place] [phone] Appointment Gastroenterology and Adrianne, 2 Hepatology Yue Burciaga M.D. [address] [place] [phone] Virtual Visit Transplant Matthew Jerome 2 Tyrell Rodriguez M.D. [address] [place] [phone] Office Visit Gastroenterology and Matthew Jerome 2 Hepatology Tyrell Rodriguez M.D. [address] [place] [phone] Appointment Radiology Queenie Matthew 2 Tyrell Rodriguez M.D. [address] [place] [phone] Hospital Gastroenterology and [facility] Cirrhos is Alcoholic (HCC) 2 Encounter Hepatology Tyrell Rodriguez M.D. [address] [place] [phone] Anesthesia Event Gastroenterology and Rl, 2 Hepatology Ervin Burgos M.D. [address] [place] [phone] Surgery Gastroenterology and [facility] ESOPHAG OGASTRODUODENOSCOPY 2 Hepatology Tyrell Rodriguez M.D. [address] [place] [phone] Scheduled Procedures Name Priority Associated Diagnoses Date/Time ESOPHAGOGASTRODUODENOSCOPY Cirrhosis Alc oholic (HCC) 03/20/2022 8:45 AM REGISTERED RADIOLOGIC TECHNOLOGIST Hypertension Portal (HCC) documented as of this encounter Visit Diagnoses Diagnosis Cirrhosis Alcoholic (HCC) Hypertension Portal (HCC) Cirrhosis Alcoholic (HCC) - Primary Cirrhosis Alcoholic (HCC) Hypertension Portal (HCC) documented in this encounter Additional Health Concerns Assessment Noted Time PHQ-9 Depression Total Score: 10 10/06/2021 5:00 PM CD T documented as of this encounter Care Teams Employment And Claims Aide Relationship Specialty Start Date End Date Ana Red P.A.-C. PCP - General Internal Medicine 12/01/[address] [place] [address] [place] [phone] [facility] lab 08/25/21 Ervin Schroeder MD Referring Provider Family Medicine 03/24/[address] [place] [address] [place] [address] documented as of this encounter
--- OUTSIDE RECORDS SUMMARY | 2022-02-12 20:24 | XMS_ITS | Encounter Summary ---
:1990 Author Organization [facility] Address [address] [place] [address] Care Team Providers Name Role Phone Ana Red P.A.-C. Primary Care Provider Reason for Visit Reason Comments Back Pain Encounter Details Date Type Department Care Team Description 12/19/2021 - [address] [facility] Katrin Gonzalez M.D., Ph.D. [address] [place] [phone] Pain Back (Primary 12/20/2021 Emergency Department Migue Garcia Jr., M.D. [address] [place] [phone] Dx) [address] [place] [phone] Social History Tobacco Use Types Packs/Day [...] you attend religious or Patient refused 2021 mormonism services? 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 - 12/20/2021 7:29 AM CDT [...] Appointment Radiology Matthew Jerome 2 YTyrell M.D. [address] [place] [phone] Appointment Gastroenterology and Adrianne, 2 Hepatology Yue Burciaga M.D. [address] [place] [phone] Virtual Visit Transplant LuisNew abdular 2 Vik RodriguezBLilian Bedolla [address] [place] [phone] Office Visit Gastroenterology and Matthew Jerome 2 Hepatology Vik RodriguezBLilian Bedolla [address] [place] [phone] Appointment Radiology LuisMatthew abdul 2 Tyrell Rodriguez M.D. [address] [place] [phone] Hospital Gastroenterology and Matthew Jerome Cirrhos is Alcoholic (HCC) 2 Encounter Hepatology Joshua RodriguezBSumaBLilian Bedolla [address] [place] [phone] Anesthesia Event Gastroenterology and Rl, 2 Hepatology Ervin Burgos M.D. [address] [place] [phone] Surgery Gastroenterology and Matthew Jerome ESOPHAG OGASTRODUODENOSCOPY 2 Hepatology Joshua RodriguezBSumaBGraeme, Lilian [address] [place] [phone] Scheduled Procedures Name Priority Associated Diagnoses Date/Time ESOPHAGOGASTRODUODENOSCOPY Cirrhosis Alc oholic (HCC) 03/20/2022 8:45 AM FOREST WORKER Hypertension Portal (HCC) documented as of [...] Dipstick, POCT, Urine (12/20/2021 4:20 AM CDT) [facility] Method Time Signature Glucose, POCT, Negative Negative 12/20/2021 PCED U mg/dL 4:22 AM CDT Ketone, POCT, Negative Negative 12/20/2021 [facility] U mg/dL 4:22 AM CDT Specific 1.020 1.005 - 12/20/2021 [facility] [place], POCT, 1.030 4:22 AM CDT U Blood, [...] ORDERABLES - DEVICE Performing Organization Address City/[facility]/ZIP Code Phon e Number POC RST [facility] [address] [place] [address] OUTPATIENT LABS PCED [facility] [place] [address] [facility] [address] Dipstick, Urine (12/20/2021 4:17 AM CDT) [facility] gist Method Time Signature Hemoglobin, Negative [...] M.D. LAB URINE ORDERABLES Performing Organization Address City/[facility]/ZIP Code Phon e Number [facility] - [address] [place], [place] [address] [facility] [place] [address] [facility] [address] pH, Random, Urine (12/20/2021 4:17 AM CDT) athologist Signature pH, Random, U 5.5 4.5 - 8.0 12/20/2021 DTL 5:17 AM CDT Specimen Anatomical Collection Method Collection Time Receive d Time (Source) Location / / Volume Laterality Urine 12/20/2021 4:17 AM 2 5:00 CDT AM CDT Harinder Nguyễn M.D. LAB URINE ORDERABLES Performing Organization Address City/State/ZIP Code Phon e Number [facility] - [address] [place], [place] [address] [facility] [place] [address] [facility] [address] [facility] Osmolality, Urine (12/20/2021 4:17 AM CDT) athologist Signature Osmolality, U 451 150 - 1150 12/20/2021 DT mOsm/kg 5:17 AM CDT Specimen Anatomical Collection Method Collection Time Receive d Time (Source) Location / / Volume Laterality Urine 12/20/2021 4:17 AM 2 5:00 CDT AM CDT Harinder Nguyễn M.D. LAB URINE ORDERABLES Performing Organization Address City/State/ZIP Code Phon e Number [facility] - [address] [place], [place] [address] [facility] [address] [place] [address] [facility] Microscopic Manual (12/20/2021 4:17 AM CDT) athologist Signature Microscopy Normal 12/20/2021 DTL 5:29 AM CDT Casts, Hyaline 1-3 /lpf 12/20/2021 DTL 5:29 AM CDT Specimen Anatomical Collection Method Collection Time Receive d Time (Source) Location / / Volume Laterality Urine 12/20/2021 4:17 AM 2 5:00 CDT AM CDT Harinder Nguyễn M.D. LAB URINE ORDERABLES Performing Organization Address City/State/ZIP Code Phon e Number [facility] - [address] [place], [place] [address] [facility] [address] [facility] [address] [facility] Bacterial Culture, Aerobic + Susc, Urine (12/20/2021 4:17 AM CDT) [employer] Method Time Signature Urine Culture No growth 12/21/2021 DTL after 1 day 8:03 AM CDT of incubation. Specimen Anatomical Collection Method Collection Time Receive d Time (Source) Location / / Volume Laterality Urine (Urine, 12/20/2021 4:17 AM 12/21/19 7:48 Midstream) CDT AM CDT Comment: Specimen Source Site: Urine Harinder Nguyễn M.D. LAB MICROBIOLOGY - GENERAL O RDERABLES Performing Organization Address City/[facility] Phon e Number [facility] - 200 [place], [place] [address] [facility] [place] [address] [place] [address] Urinalysis with Microscopic: Urine, Midstream (12/20/2021 4:17 AM CDT) [employer] Method Time Signature Source Urine, Urine, 12/20/2021 [...] M.D. LAB URINE ORDERABLES Performing Organization Address City/[facility] Phon e Number [facility] - 200 [place], [place] [address] [facility] [address] [facility] [address] [facility] Lactate (12/20/2021 3:36 AM CDT) P athologist Signature Lactate, P 1.8 0.5 - 2.2 12/20/2021 [facility] mmol/L 3:54 AM CDT Specimen Anatomical Collection Method Collection Time Receive d Time (Source) Location / / Volume Laterality Blood (Blood, 12/20/2021 3:36 AM 12/21/19 3:41 Venous) CDT AM CDT Harinder Nguyễn M.D. LAB BLOOD NON ADD-ON Performing Organization Address City/State/ZIP Code Phon e Number [facility] - 200 [place], [place] [address] [facility] [place] [address] Lipase (12/20/2021 3:36 AM CDT) P athologist Signature Lipase, S 36 13 - 60 U/L 12/20/2021 4:45 DTL AM CDT Specimen Anatomical Collection Method Collection Time Receive d Time (Source) Location / / Volume Laterality Blood (Blood, 12/20/2021 3:36 AM 12/21/19 4:00 Venous) CDT AM CDT Harinder Nguyễn M.D. LAB BLOOD ADD-ON Performing Organization Address City/State/ZIP Code Phon e Number [facility] - 200 [place], [place] [address] [facility] [place] [address] (ABNORMAL) Hepatic Function Panel (12/20/2021 3:36 [...] LAB BLOOD ADD-ON Performing Organization Address City/[facility] Phon e Number [address] [address] [facility] [place], [place] [address] [place] [address] hCG (Human Chorionic Gonadotropin), Quantitative, (12/20/2021 3:36 AM CDT) P athologist Signature HCG, 0.5 <5 IU/L 12/20/2021 [facility] Quantitative, 4:31 AM CDT , P Specimen Anatomical Collection Method Collection Time Receive d Time (Source) Location / / Volume Laterality Blood (Blood, 12/20/2021 3:36 AM 12/21/19 3:41 Venous) CDT AM CDT Harinder Nguyễn M.D. LAB BLOOD ADD-ON Performing Organization Address City/[facility] Phon e Number [facility] - 200 [place], [place] [address] [facility] [address] (ABNORMAL) Basic Metabolic Panel (12/20/2021 3:36 [...] CDT eGFR-Black/Afri 81 >=60 12/20/2021 [facility] can Libyan mL/min/BSA 4:08 AM CDT Comment: ----ADDITIONAL INFORMATION---- [...] Organization Address City/State/ZIP Code Phon e Number [facility] - [address] [place], [place] [address] [facility] [place] [address] [facility] [address] (ABNORMAL) CBC with Differential, Blood (12/20/2021 3:36 AM CDT) [facility] Method Time Signature Hemoglobin 8.0 (L) [...] Organization Address City/State/ZIP Code Phon e Number [facility] - [address] [place], [place] [address] [place] [address] [facility] [address] documented in this encounter [...] 0402 (Given - Provider: Ramirez Castrejon III RGabby) 15 mg, intravenous, Once, On 12/20/21 at 0349, For 1 dose, Adult IV push rate: Over 15 seconds. Peds IV push rate: Over 1 minute. 60 mg dose only for IM, not recommended for IV. NaCl 0.9 % bolus 1,000 mL (COMPLETED) 0642 (New Bag - Provider: Ramirez Castrejon III, R.N.)0742 (Due: Stopped - Provider: Ramirez Castrejon III RGabby) 1,000 mL, intravenous, at 1,000 mL/hr, A dminister over 1 Hours, Once, On 12/20/21 at 0639, For 1 dose documented in this encounter Additional Health Concerns Assessment Noted Time PHQ-9 Depression Total Score: 10 10/06/2021 5:00 PM CD T documented as of this encounter Care Teams Director Of Billing Relationship Specialty Start Date End Date Ana Red P.A.-C. PCP - General Internal Medicine 12/01/[address] [place] [phone] [facility] [place] lab 08/25/21 Ervin Schroeder MD Referring Provider Family Medicine 03/24/[address] [place] [address] documented as of this encounter
--- OUTSIDE RECORDS SUMMARY | 2022-02-12 20:24 | XMS_ITS | Encounter Summary ---
:1990 Author Organization [facility] Address [address] [place] [address] Care Team Providers Name Role Phone Ana Red P.A.-C. Primary Care Provider [phone] Reason for Visit Reason Comments Back Pain Encounter Details Date Type Department Care Team Description 12/19/2021 Nurse Triage Department of [facility] Ben Sun , Back Pain Internal Medicine in [place], [place] [address] [facility] [address] [place], [place] [phone] [phone] Social History Tobacco Use Types Packs/Day Years [...] you attend sikh or Patient refused 2021 adventist services? Do [...] or the highest technical, or vocational p [employer] degree you have received? 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 Call your doctor (or CREDIT CONSULTANT/PA) now or as soon as the office [...] need to be seen. Your doctor (or CREDIT CONSULTANT/PA) will want to talk with you to [...] acetaminophen, ibuprofen, or naproxen. * They are cfhs-mgg-kwxmfxx (OTC) pain drugs. You can buy them [...] Telemedicine Transplant 2 Appointment Radiology LuisMatthew abdul Tyrell Lilly M.D. [address] [place] [phone] Appointment Gastroenterology and Adrianne, 2 Hepatology Yue Burciaga M.D. [address] [place] [phone] Virtual Visit Transplant LuisMatthew abdul Tyrell Lilly M.D. [address] [place] [phone] Office Visit Gastroenterology and LuisMatthew abdul Olinda Hepatology Tyrell Rodriguez M.D. [address] [place] [phone] Appointment Radiology [facility] 2 Tyrell Rodriguez M.D. [address] [place] [phone] Hospital Gastroenterology and [facility] Cirrhos is Alcoholic (HCC) 2 Encounter Hepatology Tyrell Rodriguez M.D. [address] [place] [phone] Anesthesia Event Gastroenterology and Rl, 2 Hepatology Ervin Burgos M.D. [address] [place] [address] [phone] Surgery Gastroenterology and [facility] ESOPHAG OGASTRODUODENOSCOPY 2 Hepatology Tyrell Rodriguez M.D. [address] [place] [phone] Scheduled Procedures Name Priority Associated Diagnoses Date/Time ESOPHAGOGASTRODUODENOSCOPY Cirrhosis Alc oholic (HCC) 03/20/2022 8:45 AM AOC DIRECTOR COMBAT PLANS OFFICER Hypertension Portal (HCC) documented as of this encounter Visit Diagnoses Not on filedocumented in this encounter Additional Health Concerns Assessment Noted Time PHQ-9 Depression Total Score: 10 10/06/2021 5:00 PM CD T documented as of this encounter Care Teams Inventory Control Coordinator Relationship Specialty Start Date End Date Ana Red P.A.-C. PCP - General Internal Medicine 12/01/[address] [place], [place] [address] [phone] [facility]- [place] lab 08/25/21 Ervin Schroeder MD Referring Provider Family Medicine 03/24/[address] [place] [address] [place] [address] documented as of this encounter
--- OUTSIDE RECORDS SUMMARY | 2022-02-12 20:24 | XMS_ITS | Encounter Summary ---
:1990 Author Organization [facility] Address [address] [place] [address] Care Team Providers Name Role Phone Ana Red P.A.-C. Primary Care Provider [phone] Encounter Details Date Type Department Care Team Description 01/07/2022 Patient Self-Triage [facility] Symptom Scruff Worker, Provider Social History Tobacco Use Types Packs/Day [...] you attend denominational or Patient refused 2021 jain services? 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 [address] [place] [phone] Virtual Visit Transplant Matthew Jerome 2, M.B.B.S., M.D. [address] [place] [phone] Office Visit Gastroenterology and Matthew Jerome 2 Hepatology Tyrell Rodriguez M.D. [address] [place] [address] [phone] Appointment Radiology Queenie Matthew 2 YTyrell, Lilian [address] [place] [address] [phone] Hospital Gastroenterology and [facility] Cirrhos is Alcoholic (HCC) 2 Encounter Hepatology Tyrell Rodriguez M.D. [address] [place] [phone] Anesthesia Event Gastroenterology and [facility], 2 Hepatology Ervin Burgos M.D. [address] [place] [phone] Surgery Gastroenterology and [facility] ESOPHAG OGASTRODUODENOSCOPY 2 Hepatology Tyrell Rodriguez M.D. [address] [place] [phone] Scheduled Procedures Name Priority Associated Diagnoses Date/Time ESOPHAGOGASTRODUODENOSCOPY Cirrhosis Alc oholic (HCC) 03/20/2022 8:45 AM HUMAN CAPITAL ANALYST Hypertension Portal (HCC) documented as of this encounter Visit Diagnoses Not on filedocumented in this encounter Additional Health Concerns Assessment Noted Time PHQ-9 Depression Total Score: 10 10/06/2021 5:00 PM CD T documented as of this encounter Care Teams Fabric Machine Operator Relationship Specialty Start Date End Date Ana Red P.A.-C. PCP - General Internal Medicine 12/01/[address] [place] [address] ADI Chua [phone] [facility]- [place] lab 08/25/21 Ervin Schroeder MD Referring Provider Family Medicine 03/24/21 [address] [place] [address] documented as of this encounter
--- OUTSIDE RECORDS SUMMARY | 2022-02-12 20:24 | XMS_ITS | Encounter Summary ---
:1990 Author Organization [facility] Address [address] [place] [address] Care Team Providers Name Role Phone Ana Red P.A.-C. Primary Care Provider [phone] Encounter Details Date Type Department Care Team Description 12/12/2021 Documentation [facility] Landon O'Kean, Mi meena Gannon for Transplantation and Mariluz Oliva, M.S.W. Clinical Regeneration in [address] [place] [address] [address] [place] [address] [place] [address] [phone] Social History Tobacco Use Types Packs/Day Years [...] you attend muslim or Patient refused 2021 hindu services? Do [...] highest technical, or vocational p [facility] degree you have received? 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 He stated he has spoken with [...] management per Radhames Neumann, Ph.D., L.P. in [facility] (Pain Rehabilitation), 10/06/2021: - virtual [...] Radiology Matthew Jerome 2 YTyrell M.D. [address] [place] [phone] Appointment Gastroenterology demian Silver 2 Hepatology Yue Burciaga M.D. [address] [place] [phone] Virtual Visit Transplant Matthew Jerome 2 YTyrell M.D. [address] [place] [phone] Office Visit Gastroenterology and Matthew Jerome 2 Hepatology Tyrell Rodriguez M.D. [address] [place] [phone] Appointment Radiology Matthew Jerome 2 YTyrell M.D. [address] [place] [phone] Hospital Gastroenterology and Queenie Matthew Cirrhos is Alcoholic (HCC) 2 Encounter Hepatology Tyrell Rodriguez M.D. [address] [place] [phone] Anesthesia Event Gastroenterology and Olinda Shine Hepatology Ervin Burgos M.D. [address] [place] [address] [phone] Surgery Gastroenterology and Matthew Jerome ESOPHAG OGASTRODUODENOSCOPY 2 Hepatology Y, M.Lilian Hudson [address] [place] [address] Scheduled Procedures Name Priority Associated Diagnoses Date/Time ESOPHAGOGASTRODUODENOSCOPY Cirrhosis Alc oholic (HCC) 03/20/2022 8:45 AM VOICE TEACHER Hypertension Portal (HCC) documented as of this encounter Visit Diagnoses Not on filedocumented in this encounter Additional Health Concerns Assessment Noted Time PHQ-9 Depression Total Score: 10 10/06/2021 5:00 PM CD T documented as of this encounter Care Teams Porcelain Enamel Laborer Relationship Specialty Start Date End Date Ana Red P.A.-C. PCP - General Internal Medicine 12/01/[address] [place] [address] [phone] [facility]- [place] lab 08/25/21 Ervin Schroeder MD Referring Provider Family Medicine 03/24/[address] [place] [address] documented as of this encounter
--- OUTSIDE RECORDS SUMMARY | 2022-02-12 20:24 | XMS_ITS | Encounter Summary ---
:1990 Author Organization [facility] Address [address] [place] [address] Care Team Providers Name Role Phone Ana Red P.A.-C. Primary Care Provider [phone] Encounter Details Date Type Department Care Team Description 12/18/2021 Orders Only Department of Mousa, Matthew Y, Mood Disorde r (HCC) (Primary Dx); Gastroenterology in [place].Joshua Hudson Anxiety Disorder Unspecified [place], [place] 1025 [facility] [address] [place] [phone] Social History Tobacco Use Types Packs/Day Years [...] you attend spiritism or Patient refused 2021 jain services? Do you belong to any clubs or No 02/10/2022 organizations such as spiritism groups, unions, fraZinch or athletic groups, or school groups? 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 [address] [place] [address] Appointment Gastroenterology and Adrianne, 2 Hepatology Yue Burciaga M.D. [address] [place] [address] Virtual Visit Transplant Matthew Jerome 2 YTyrell M.D. [address] [place] [phone] Office Visit Gastroenterology and Matthew Jerome 2 Hepatology Tyrell Rodriguez M.D. [address] [place] [phone] Appointment Radiology Matthew Jerome 2 Tyrell Rodriguez M.D. [address] [place] [phone] Hospital Gastroenterology and Matthew Jerome Cirrhos is Alcoholic (HCC) 2 Encounter Hepatology Tyrell Rodriguez M.D. [address] [place] [phone] Anesthesia Event Gastroenterology and Rl, 2 Hepatology Ervin Burgos M.D. [address] [place] [phone] Surgery Gastroenterology and Matthew Jerome ESOPHAG OGASTRODUODENOSCOPY 2 Hepatology Tyrell Rodriguez M.D. [address] [place] [phone] Scheduled Procedures Name Priority Associated Diagnoses Date/Time ESOPHAGOGASTRODUODENOSCOPY Cirrhosis Alc oholic (HCC) 03/20/2022 8:45 AM RAILROAD POLICE OFFICER Hypertension Portal (HCC) documented as of this encounter Visit Diagnoses Diagnosis Cirrhosis Alcoholic (HCC) Hypertension Portal (HCC) Mood Disorder (HCC) - Primary Anxiety Disorder Unspecified Cirrhosis Alcoholic (HCC) Hypertension Portal (HCC) documented in this encounter Additional Health Concerns Assessment Noted Time PHQ-9 Depression Total Score: 10 10/06/2021 5:00 PM CD T documented as of this encounter Care Teams Orthodontic Technician Relationship Specialty Start Date End Date Ana Red P.A.-C. PCP - General Internal Medicine 12/01/[address] [place] [phone] [facility] 08/25/21 rEvin Schroeder MD Referring Provider Family Medicine 03/24/[address] [place] [address] documented as of this encounter
--- OUTSIDE RECORDS SUMMARY | 2022-02-12 20:24 | XMS_ITS | Encounter Summary ---
:1990 Author Organization [facility] Address [address] [place] [address] Care Team Providers Name Role Phone Ana Red P.A.-C. Primary Care Provider [phone] Encounter Details Date Type Department Care Team Description 12/15/2021 Lab Department of Adeline Frazier Alcohol Moderate Or Severe Use Disorder (Dependence) Uncomplicated (HCC); Laboratory Medicine and Lilian Gannon, Ph.D. Cannabis Use Unspecified Uncomplicated Pathology, [place] [address] [place] [address], in [facility] [phone] [place] [address] [place] [address] Social History Tobacco Use Types [...] you attend sabianist or Patient refused 2021 christian services? 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 [address] [place] [address] Appointment Gastroenterology and Adrianne, 2 Hepatology Yue Burciaga M.D. [address] [place] [address] Virtual Visit Transplant Matthew Jerome 2 YTyrell M.D. [address] [place] [phone] Office Visit Gastroenterology and Matthew Jerome 2 Hepatology Tyrell Rodriguez M.D. [address] [place] [phone] Appointment Radiology Matthew Jerome 2 Tyrell Rodriguez M.D. [address] [place] [phone] [facility] Cirrhos is Alcoholic (HCC) 2 Encounter Hepatology Tyrell Rodriguez M.D. [address] [place] [phone] Anesthesia Event Gastroenterology and Rl, 2 Hepatology Ervin Burgos M.D. [address] [place] [address] [phone] Surgery Gastroenterology and Queenie Matthew ESOPHAG OGASTRODUODENOSCOPY 2 Hepatology Tyrell Rodriguez M.D. [address] [place] [phone] Scheduled Procedures Name Priority Associated Diagnoses Date/Time ESOPHAGOGASTRODUODENOSCOPY Cirrhosis Alc oholic (HCC) 03/20/2022 8:45 AM FLOORING SALESPERSON Hypertension Portal (HCC) documented as of this [...] (THC) Confirmation, Urine (12/15/2021 5:58 PM CDT) [facility] Method Time Signature Carboxy-THC- by 19 Cutoff: 12/18/2021 [facility] GC/MS 3.0 ng/mL 6:38 AM CDT Carboxy-THC Positive. 12/18/2021 [facility] Interpretation 6:38 AM CDT Comment: ----ADDITIONAL INFORMATION---- [...] Address City/State/ZIP Code Phon e Number [facility] [address] [place] [address] [place] [address] [facility] [place] [address] Laboratory Medicine and Pathology [address] [place] [address] [place] (ABNORMAL) Drug Abuse Survey with Confirmation, Urine (12/15/2021 5:58 PM CDT) [facility] Method Time Signature Alcohol Negative Cutoff: 10 [...] Address City/State/ZIP Code Phon e Number [facility] [address] [place] [address] [place] [address] [facility] [place] [address] Laboratory Medicine and Pathology [address] [place] [address] [place] Ethyl Glucuronide Confirmation, Random, Urine (12/15/2021 5:51 PM CDT) [facility] Method Time Signature Ethyl Glucuronide Negative Cutoff: 12/17/2021 [facility] Confirmation, U 250 ng/mL 10:34 AM CDT Ethyl Sulfate Negative Cutoff: 12/17/2021 [facility] 100 ng/mL 10:34 AM CDT Ethyl Gluc/Sulfate Negative. 12/17/2021 [facility] Interpretation 10:34 AM CDT Comment: [...] Address City/State/ZIP Code Phon e Number [facility] [address] [place] [address] [place], [place] [address] SU[facility]ENTER [facility] [place] [address] Laboratory Medicine and Pathology [address] [place] [address] [...] documented as of this encounter Care Teams Cosmetics And Toiletries Salesperson Relationship Specialty Start Date End Date Ana Red P.A.-C. PCP - General Internal Medicine 12/01/[address] [place] [phone] [facility] 08/25/21 Ervin Schroeder MD Referring Provider Family Medicine 03/24/[address] [place] [address] documented as of this encounter
--- OUTSIDE RECORDS SUMMARY | 2022-02-12 20:24 | XMS_ITS | Encounter Summary ---
:1990 Author Organization [facility] Address [address] [place] [address] Care Team Providers Name Role Phone Ana Red P.A.-C. Primary Care Provider [phone] Encounter Details Date Type Department Care Team Description 01/08/2022 Clinical Communication [facility] Farida Perez Medicine in [address] [address] [place], [place] [phone] (Work) [phone] Social History Tobacco Use Types Packs/Day Years [...] you attend cheondoism or Patient refused 2021 taoism services? Do [...] or the highest technical, or vocational p [facility] degree you have received? 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 [address] [place] [phone] Virtual Visit Transplant LuisMatthew abdul 2 Y M.B.B.SSuma, Lilian [address] [place] [phone] Office Visit Gastroenterology and Matthew Jerome 2 Hepatology Jennifer M.B.B.SLilian Moise [address] [place] [phone] Appointment Radiology LuisNew abdular 2 YJsohuaB.B.SSuma, Lilian [address] [place] [phone] Hospital Gastroenterology and Mousa, Matthew Cirrhos is Alcoholic (HCC) 2 Encounter Hepatology Tyrell Rodriguez, Lilian [address] [place] [phone] Anesthesia Event Gastroenterology and Rl, 2 Hepatology Ervin Burgos M.D. [address] [place] [phone] Surgery Gastroenterology and [place], Matthew ESOPHAG OGASTRODUODENOSCOPY 2 Hepatology Tyrell Rodriguez, Lilian [address] [place] [phone] Scheduled Procedures Name Priority Associated Diagnoses Date/Time ESOPHAGOGASTRODUODENOSCOPY Cirrhosis Alc oholic (HCC) 03/20/2022 8:45 AM DITCH CLEANER Hypertension Portal (HCC) documented as of this encounter Visit Diagnoses Not on filedocumented in this encounter Additional Health Concerns Assessment Noted Time PHQ-9 Depression Total Score: 10 10/06/2021 5:00 PM CD T documented as of this encounter Care Teams Pattern Drafter Relationship Specialty Start Date End Date Ana Red P.A.-C. PCP - General Internal Medicine 12/01/[address] [place] [phone] [facility]- [place] lab 08/25/21 Ervin Schroeder MD Referring Provider Family Medicine 03/24/[address] [place] [address] documented as of this encounter
--- OUTSIDE RECORDS SUMMARY | 2022-02-12 20:24 | XMS_ITS | Encounter Summary ---
:1990 Author Organization [facility] Address [address] [place] [address] Care Team Providers Name Role Phone Ana Red P.A.-C. Primary Care Provider [phone] Encounter Details Date Type Department Care Team Description 12/27/2021 Patient Self-Triage [facility] CARE Symptom Management Information Systems Director, Provider Social History Tobacco Use Types Packs/Day [...] you attend congregation or Patient refused 2021 worship services? 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 [address] [place] [phone] Virtual Visit Transplant Matthew Jerome 2, M.B.B.S., M.D. [address] [place] [phone] Office Visit Gastroenterology and Matthew Jerome 2 Hepatology Tyrell Rodriguez M.D. [address] [place] [address] [phone] Appointment Radiology Queenie Matthew 2 YTyrell, Lilian [address] [place] [address] [phone] Hospital Gastroenterology and [facility] Cirrhos is Alcoholic (HCC) 2 Encounter Hepatology Tyrell Rodriguez M.D. [address] [place] [phone] Anesthesia Event Gastroenterology and [facility], 2 Hepatology Ervin Burgos M.D. [address] [place] [phone] Surgery Gastroenterology and [facility] ESOPHAG OGASTRODUODENOSCOPY 2 Hepatology Tyrell Rodriguez M.D. [address] [place] [phone] Scheduled Procedures Name Priority Associated Diagnoses Date/Time ESOPHAGOGASTRODUODENOSCOPY Cirrhosis Alc oholic (HCC) 03/20/2022 8:45 AM DIRECTOR OF CLINICAL TRIALS Hypertension Portal (HCC) documented as of this encounter Visit Diagnoses Not on filedocumented in this encounter Additional Health Concerns Assessment Noted Time PHQ-9 Depression Total Score: 10 10/06/2021 5:00 PM CD T documented as of this encounter Care Teams Director Auto Relationship Specialty Start Date End Date Ana Red P.A.-C. PCP - General Internal Medicine 12/01/[address] [place] [address] ADI Chua [phone] [facility]- [place] lab 08/25/21 Ervin Schroeder MD Referring Provider Family Medicine 03/24/21 [address] [place] [address] documented as of this encounter
--- OUTSIDE RECORDS SUMMARY | 2022-02-12 20:24 | XMS_ITS | Encounter Summary ---
:1990 Author Organization [facility] Address [address] [place] [address] Care Team Providers Name Role Phone Ana Red P.A.-C. Primary Care Provider [phone] Encounter Details Date Type Department Care Team Description 12/25/2021 Clinical Communication [facility] Farida Perez Medicine in [address] [phone] [place], [place] [phone] (Work) [phone] Social History Tobacco Use Types Packs/Day Years [...] you attend hinduism or Patient refused 2021 taoist services? Do [...] or the highest technical, or vocational p muscogeesallie degree you have received? 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 [address] [place] [phone] Virtual Visit Transplant Matthew Jeroem 2 Tyrell Rodriguez M.D. [address] [place] [phone] Office Visit Gastroenterology and Matthew Jerome 2 Hepatology Tyrell Rodriguez M.D. [address] [place] [phone] Appointment Radiology Matthew Jerome 2 Tyrell Rodriguez M.D. [address] [place] [phone] [facility] Gastroenterology and Luischantell Matthew Cirrhos is Alcoholic (HCC) 2 Encounter Hepatology Tyrell Rodriguez M.D. [address] [place] [phone] Anesthesia Event Gastroenterology and Rl, 2 Hepatology Ervin Burgos M.D. [address] [place] [phone] Surgery Gastroenterology and Luischantell Matthew ESOPHAG OGASTRODUODENOSCOPY 2 Hepatology Vik RodriguezBGraeme, Lilian [address] [place] [phone] Scheduled Procedures Name Priority Associated Diagnoses Date/Time ESOPHAGOGASTRODUODENOSCOPY Cirrhosis Alc oholic (HCC) 03/20/2022 8:45 AM COLLEGE ADMISSIONS COUNSELOR Hypertension Portal (HCC) documented as of this encounter Visit Diagnoses Not on filedocumented in this encounter Additional Health Concerns Assessment Noted Time PHQ-9 Depression Total Score: 10 10/06/2021 5:00 PM CD T documented as of this encounter Care Teams Patient Ambassador Relationship Specialty Start Date End Date Ana Red P.A.-C. PCP - General Internal Medicine 12/01/[address] [place] [phone] [facility]- [place] lab 08/25/21 Ervin Schroeder MD Referring Provider Family Medicine 03/24/[address] [place] [address] documented as of this encounter
--- OUTSIDE RECORDS SUMMARY | 2022-02-12 20:24 | XMS_ITS | Encounter Summary ---
:1990 Author Organization [facility] Address [address] [place] [address] Care Team Providers Name Role Phone Ana Red P.A.-C. Primary Care Provider Reason for Visit Reason Comments Ascites Shortness of Breath Encounter Details Date Type Department Care Team Description 12/21/2021 Emergency [facility] Katrin Gonzalez M.D., Ph.D. [address] [place] [phone] Ascites (Primary Dx) Emergency Department Clifton Liu M.D. [address] [place] [phone] [address] [place] [address] Social History Tobacco Use [...] you attend christian or Patient refused 2021 faith services? 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 DIFFERENTIAL DIAGNOSIS Liver [...] Radiology Matthew Jerome 2 YTyrell M.D. [address] [place] [address] Appointment Gastroenterology and Adrianne, 2 Hepatology Yue Burciaga M.D. [address] [place] [address] Virtual Visit Transplant Matthew Jerome 2 YTyrell M.D. [address] [place] [phone] Office Visit Gastroenterology and Matthew Jerome 2 Hepatology Tyrell Rodriguez M.D. [address] [place] [phone] Appointment Radiology Utchantell Matthew 2 Tyrell Rodriguez M.D. [address] [place] [phone] [facility] Cirrhos is Alcoholic (HCC) 2 Encounter Hepatology Tyrell Rodriguez M.D. [address] [place] [phone] Anesthesia Event Gastroenterology and Rl, 2 Hepatology Ervin Burgos M.D. [address] [place] [phone] Surgery Gastroenterology and [facility] ESOPHAG OGASTRODUODENOSCOPY 2 Hepatology Tyrell Rodriguez M.D. [address] [place] [phone] Scheduled Procedures Name Priority Associated Diagnoses Date/Time ESOPHAGOGASTRODUODENOSCOPY Cirrhosis Alc oholic (HCC) 03/20/2022 8:45 AM LEGISLATIVE ADVOCATE Hypertension Portal (HCC) documented as of this [...] 07 (New Bag - Provider: Fadumo Christianson R.Sera.)0830 (Stopped - Provider: Daniel Ross R.N., CPEN) [...] as of this encounter Care Teams Research Professor Relationship Specialty Start Date End Date Ana Red P.A.-C. PCP - General Internal Medicine 12/01/[address] [place] [phone] [facility]- [place] lab 08/25/21 Ervin Schroeder MD Referring Provider Family Medicine 03/24/[address] [place] [phone] documented as of this encounter
--- OUTSIDE RECORDS SUMMARY | 2022-02-12 20:24 | XMS_ITS | Encounter Summary ---
:1990 Author Organization [facility] Address [address] [place] [address] Care Team Providers Name Role Phone Ana Red P.A.-C. Primary Care Provider [phone] Reason for Visit Reason Comments Phone Contact Appointment LABS Encounter Details Date Type Department Care Team Description 12/11/2021 Clinical Ramirez Barajas, Phone Contact; Communication Center for Mitchell Rowland (Jagdeep HERRON) Transplantation and Lilian, Ph.D. Clinical [facility] [address] [place] [address] [address] [facility] [phone] Social History Tobacco Use Types Packs/Day Years [...] you attend jewish or Patient refused 2021 faith services? Do you belong to any clubs or No 02/10/2022 organizations such as jewish groups, unions, fraXylitol [place] or athletic groups, or school groups? How [...] or vocational p [facility] degree you have received? 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 [address] [place] [phone] Appointment Gastroenterology demian Silver 2 Hepatology Yue Burciaga M.D. [address] [place] [phone] Virtual Visit Transplant Matthew Jerome 2 YTyrell M.D. [address] [place] [phone] Office Visit Gastroenterology and Matthew Jerome 2 Hepatology Tyrell Rodriguez M.D. [address] [place] [phone] Appointment Radiology Matthew Jerome 2 YTyrell M.D. [address] [place] [phone] Hospital Gastroenterology and Matthew Jerome Cirrhos is Alcoholic (HCC) 2 Encounter Hepatology Tryell Rodriguez M.D. [address] [place] [phone] Anesthesia Event Gastroenterology and Rl, [place] Hepatology Ervin Burgos M.D. [address] [place] [phone] Surgery Gastroenterology and Matthew Jerome ESOPHAG OGASTRODUODENOSCOPY 2 Hepatology Y, Lilian Santillan [address] [place] [address] Scheduled Procedures Name Priority Associated Diagnoses Date/Time ESOPHAGOGASTRODUODENOSCOPY Cirrhosis Alc oholic (HCC) 03/20/2022 8:45 AM INFORMATION TECHNOLOGY PROJECT MANAGER Hypertension Portal (HCC) documented as of this encounter Visit Diagnoses Not on filedocumented in this encounter Additional Health Concerns Assessment Noted Time PHQ-9 Depression Total Score: 10 10/06/2021 5:00 PM CD T documented as of this encounter Care Teams Channel Director Relationship Specialty Start Date End Date Ana Red P.A.-C. PCP - General Internal Medicine 12/01/[address] [place] [phone] [facility]- [place] lab 08/25/21 Ervin Schroeder MD Referring Provider Family Medicine 03/24/[address] [place] [address] documented as of this encounter
--- OUTSIDE RECORDS SUMMARY | 2022-02-12 20:24 | XMS_ITS | Encounter Summary ---
:1990 Author Organization [facility] Address [address] [place] [address] Care Team Providers Name Role Phone Ana Red P.A.-C. Primary Care Provider [phone] Reason for Visit Reason Comments Follow-up Transplant evaluation Outpatient (Routine) - Closed Specialty Diagnoses / Referred By Contact Referred To Procedures Contact Gastroenterology and Diagnoses Cirrhosis Alcoholic (HCC) Hypertension Portal (HCC) Thrombocytopenia (HCC) Abnormal Liver Function Test Deficiency Vitamin [facility] M.B.B.S., Lilian [address] [place] [address] Referral ID Status Reason Start Date Expiration Date Visits Requ ested Visits Authorized [id number] Closed 10/08/2021 10/08/2022 1 1 Encounter Details Date Type Department Care Team Description 12/10/2021 Office Visit Department of Matthew Jerome Cirrhosis Alco holic (HCC) (Primary Dx); Gastroenterology in , M.B.B.SSuma, Hyperten neptali Portal (HCC); [place], [place] Lilian Thrombocytopenia (HCC); [address] [facility] [address] [facility] Abnormal Liver Function Test; [place] [address] [place], [place] Deficiency Vitamin A; [phone] [address] Ascites Chronic; [phone] Hepatic Encepha lopathy Without Coma (HCC) (Work) [...] you attend congregational or Patient refused 2021 anabaptist services? Do [...] the highest technical, or vocational p [facility] degree you have received? 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 Please call Parris Tan in [place]. Please follow with the psych counselor at [...] years but intermittently. She was admitted in [place] during the month of October for about [...] missed the voice messages from the social media manager Parris Tan, and agreed to call her [...] out to the transplant psych team in [place] and Zenobia Hollingsworth sent the information and [...] missing the voice messages from the social media manager Parris Tan and promised me that she [...] October 2021 #15 Newly diagnosed PFO with oxumc-na-wcvz atrial shunt: Echo done March 2020 # [...] [facility], Hepatology and Transplant hepatology [facility] documented in this encounter Plan of Treatment Upcoming Encounters Date Type Specialty Care Team Description Telemedicine Transplant 2 Appointment Radiology Matthew Jerome 2, M.B.B.S., M.D. [address] [place] [address] Appointment Gastroenterology demian Silver, 2 Hepatology Yue Burciaga M.D. [address] [place] [address] Virtual Visit Transplant Matthew Jerome 2, M.B.B.S., M.D. [address] [place] [phone] Office Visit Gastroenterology and Matthew Jerome 2 Hepatology Tyrell Rodriguez M.D. [address] [place] [phone] Appointment Radiology Luischantell Matthew 2 Tyrell Rodriguez M.D. [address] [place] [phone] [facility] Gastroenterology and Queenie Matthew Cirrhos is Alcoholic (HCC) 2 Encounter Hepatology Tyrell Rodriguez M.D. [address] [place] [phone] Anesthesia Event Gastroenterology and Rl, 2 Hepatology Ervin Burgos M.D. [address] [place] [phone] Surgery Gastroenterology and Mschantell Matthew ESOPHAG OGASTRODUODENOSCOPY 2 Hepatology Tyrell Rodriguez M.D. [address] [place] [phone] Scheduled Procedures Name Priority Associated Diagnoses Date/Time ESOPHAGOGASTRODUODENOSCOPY Cirrhosis Alc oholic (HCC) 03/20/2022 8:45 AM PRODUCTION CONTROL EXPEDITER Hypertension Portal (HCC) documented as of [...] PCP - General Internal Medicine 12/01/[address] [place] [phone] [facility]- [place] lab 08/25/21 Ervin Schroeder MD Referring Provider Family Medicine 03/24/[address] [place] [address] documented as of this encounter
--- OUTSIDE RECORDS SUMMARY | 2022-02-12 20:24 | XMS_ITS | Encounter Summary ---
:1990 Author Organization [facility] Address [address] [place] [address] Care Team Providers Name Role Phone Ana Red PSumaA.-C. Primary Care Provider Reason for Visit Reason Comments Disability Parking Certificate Encounter Details Date Type Department Care Team Description 12/11/2021 Clinical Communication Department of Sherry Red [facility] Internal Ana, Certifica Medicine in P.A.-C. [place], [address] [facility] [address] [facility] [address] [place] [phone] (Work) [phone] Social History Tobacco Use Types Packs/Day Years [...] you attend buddhist or Patient refused 2021 quaker services? Do you belong to any clubs or No 02/10/2022 organizations such as buddhist groups, unions, [email or web address] or athletic groups, or school groups? 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 - 12/11/2021 9:16 AM CDT Disability Parking Certificate form request received. Please mail to patient after provider has signed. documented in this encounter Plan of Treatment Upcoming Encounters Date Type Specialty Care Team Description Telemedicine Transplant 2 Appointment Radiology Matthew Jerome 2 YTyrell, M.Jeri [address] [place] [phone] Appointment Gastroenterology and Adrianne, 2 Hepatology Yue Burciaga M.D. [address] [place] [phone] Virtual Visit Transplant Matthew Jerome 2 Joshua RodriguezBSumaBLilian Bedolla [address] [place] [phone] Office Visit Gastroenterology and Matthew Jerome 2 Hepatology Joshua RodriguezBSumaBLilian Bedolla [address] [place] [phone] Appointment Radiology Matthew Jerome 2 Joshua RodriguezB.BLilian Bedolla [address] [place] [phone] Hospital Gastroenterology and Queenie Matthew Cirrhos is Alcoholic (HCC) 2 Encounter Hepatology Joshua RodriguezBSumaBLilian Bedolla [address] [place] [phone] Anesthesia Event Gastroenterology and Rl, 2 Hepatology Ervin Burgos M.D. [address] [place] [phone] Surgery Gastroenterology and LuischantellMatthew ESOPHAG OGASTRODUODENOSCOPY 2 Hepatology Joshua RodriguezB.BLilian Bedolla [address] [place] [phone] Scheduled Procedures Name Priority Associated Diagnoses Date/Time ESOPHAGOGASTRODUODENOSCOPY Cirrhosis Alc oholic (HCC) 03/20/2022 8:45 AM RADIATION SAFETY OFFICER Hypertension Portal (HCC) documented as of this encounter Visit Diagnoses Not on filedocumented in this encounter Additional Health Concerns Assessment Noted Time PHQ-9 Depression Total Score: 10 10/06/2021 5:00 PM CD T documented as of this encounter Care Teams Hide Handler Relationship Specialty Start Date End Date Ana Red P.A.-C. PCP - General Internal Medicine 12/01/[address] [place] [phone] [facility]- [place] lab 08/25/21 Ervin Schroeder MD Referring Provider Family Medicine 03/24/[address] [place] [address] documented as of this encounter
--- OUTSIDE RECORDS SUMMARY | 2022-02-12 20:24 | XMS_ITS | Encounter Summary ---
:1990 Author Organization [facility] Address [address] [place] [address] Care Team Providers Name Role Phone Ana Red P.A.-C. Primary Care Provider [phone] Encounter Details Date Type Department Care Team Description 12/11/2021 Clinical Communication Department of Felicita Spicer Gastroenterology in E, L.P.N. [place], [place] [phone] [place] [address] ([facility]) [place] [phone] Social History Tobacco Use Types Packs/Day [...] you attend mu-ism or Patient refused 2021 pentecostalism services? Do you belong to any clubs or No 02/10/2022 organizations such as mu-ism groups, unions, fraLumicity or athletic groups, or school groups? How [...] the highest technical, or vocational p [facility] degree you have received? 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 - 12/11/2021 10:51 AM CDT Chip Mucker called and spoke with Radiology nursing department [...] seems they used it for her in [facility] last week and it worked very well for her. Otherwise she has significant anxiety from the procedure. Please let me know Thank you OM documented in this encounter Plan of Treatment Upcoming Encounters Date Type Specialty Care Team Description Telemedicine Transplant 2 Appointment Radiology Matthew Jerome 2, M.B.B.S., M.D. [address] [place] [phone] Appointment Gastroenterdina and Adrianne, 2 Hepatology Yue Burciaga M.D. [address] [place] [phone] Virtual Visit Transplant Matthew Jerome 2, M.B.B.S., M.D. [address] [place] [phone] Office Visit Gastroenterology and Matthew Jerome 2 Hepatology Tyrell Rodriguez M.D. [address] [place] [phone] Appointment Radiology Matthew Jerome 2, M.B.B.S., M.D. [address] [place] [phone] Hospital Gastroenterology and [facility] Cirrhos is Alcoholic (HCC) 2 Encounter Hepatology Tyrell Rodriguez M.D. [address] [place] [phone] Anesthesia Event Gastroenterology and [facility], 2 Hepatology Ervin Burgos M.D. [address] [place] [phone] Surgery Gastroenterology and [facility] ESOPHAG OGASTRODUODENOSCOPY 2 Hepatology Tyrell Rodriguez M.D. [address] [place] [phone] Scheduled Procedures Name Priority Associated Diagnoses Date/Time ESOPHAGOGASTRODUODENOSCOPY Cirrhosis Alc oholic (HCC) 03/20/2022 8:45 AM AIR VALUE TESTER Hypertension Portal (HCC) documented as of this encounter Visit Diagnoses Diagnosis Cirrhosis Alcoholic (HCC) Hypertension Portal (HCC) Ascites Chronic - Primary Cirrhosis Alcoholic (HCC) Hypertension Portal (HCC) documented in this encounter Additional Health Concerns Assessment Noted Time PHQ-9 Depression Total Score: 10 10/06/2021 5:00 PM CD T documented as of this encounter Care Teams Lavatory Attendant Relationship Specialty Start Date End Date Ana Red P.A.-C. PCP - General Internal Medicine 12/01/[address] [place] [address] [place] [phone] [facility]- [place] lab 08/25/21 Ervin Schroeder MD Referring Provider Family Medicine 03/24/[address] [place] [address] [place] [address] documented as of this encounter
--- OUTSIDE RECORDS SUMMARY | 2022-02-12 20:24 | XMS_ITS | Encounter Summary ---
:1990 Author Organization [facility] Address [address] [place] [address] Care Team Providers Name Role Phone Ana RedASuma-CSuma Primary Care Provider Reason for Referral Outpatient (Routine) - Authorized Specialty Diagnoses / Procedures Referred By Contact Refer red To Contact [facility] Internal Ana Red [facility] P.A.-CSuma [address] [facility] BAYSAN [facility] [place] [address] Referral ID Status Reason Start Date Expiration Date Visits V isits Requested Authorized [id number] Authorized 01/07/2022 01/06/2025 1 1 Reason for Visit Reason Comments Follow-up Cirrhosis and Hepatic Enceph alopathy. Back Pain Back Pain for 3 1/2 weeks. Outpatient (Routine) - Closed Specialty Diagnoses / Procedures Referred By Contact Refer red To Contact [facility] Internal JESSE Arnold [facility] Adair Correa [address] [place] [address] Referral ID Status Reason Start Date Expiration Date Visits Requ ested Visits Authorized [id number] Closed 12/02/2021 12/02/2022 1 1 Encounter Details Date Type Department Care Team Description 01/07/2022 Office Visit Department of Internal Deanovic, Hyper tension Portal (HCC) (Primary Dx); Medicine in [place] .A[place]. Cirrhosis Alcoholic (HCC); [place] [address] Ascites; [address] [place], [place] Pancreatitis Chronic (HCC); [place] [address] Pain Low Back Mechanical [phone] Social History [...] you attend christian or Patient refused 2021 advent services? 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 She was a heavy drinking in her 20s. She follows with GI and hepatology in [place]. She gets frequent paracentesis for ascites. She [...] Pretransplant Recipient Evaluation Exam Deficiency Vitamin A Mail Teller Use Of Opiate Analgesic Nicotine Dependence Cigarettes [...] (HCC) Follows with GI and Hepatology in [place]. She has a paracentesis scheduled for two [...] pap smears. We cannot see records from [place]. Other orders - [facility] [...] Radiology Matthew Jerome 2 YTyrell M.D. [address] [place] [address] Appointment Gastroenterology and Adrianne, 2 Hepatology Yue Burciaga M.D. [address] [place] [phone] Virtual Visit Transplant Matthew Jerome 2 YTyrell M.D. [address] [place] [phone] Office Visit Gastroenterology and Matthew Jerome 2 Hepatology Tyrell Rodriguez M.D. [address] [place] [phone] Appointment Radiology Matthew Jerome 2 Tyrell Rodriguez M.D. [address] [place] [phone] Hospital Gastroenterology and Matthew Jerome Cirrhos is Alcoholic (HCC) 2 Encounter Hepatology Tyrell Rodriguez M.D. [address] [place] [phone] Anesthesia Event Gastroenterology and Rl, 2 Hepatology Ervin Burgos M.D. [address] [place] [phone] Surgery Gastroenterology and Matthew Jerome ESOPHAG OGASTRODUODENOSCOPY 2 Hepatology Tyrell Rodriguez M.D. 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 PCP - General Internal Medicine 12/01/[address] [place] [phone] [facility]- [place] lab 08/25/21 Ervin Schroeder MD Referring Provider Family Medicine 03/24/[address] [place] [address] documented as of this encounter
--- OUTSIDE RECORDS SUMMARY | 2022-02-12 20:24 | XMS_ITS | Encounter Summary ---
:1990 Author Organization [facility] Address [address] [place] [address] Care Team Providers Name Role Phone Ana Red P.A.-C. Primary Care Provider [phone] Reason for Referral Outpatient (Routine) - Authorized Specialty Diagnoses / Procedures Referred By Contact Refer red To Contact Diagnoses Ascites Chronic Matthew Jerome M.B.B.SSuma, [facility] Procedures US Paracentesis with Imaging Guidance MJules [address] [place] [address] [phone] Referral ID Status Reason Start Date Expiration Date Visits V isits Requested Authorized [id number] Authorized 11/19/2021 11/19/2022 1 1 Outpatient (Routine) - Pending Review Specialty Diagnoses / Procedures Referred By Contact Refer red To Contact Diagnoses Ascites Chronic Matthew Jerome M.B.BSumaSSuma, [facility] Procedures US Paracentesis with Imaging Guidance M.DSuma [address] [place] [address] [phone] Referral ID Status Reason Start Date Expiration Date Visits V isits Requested Authorized [id number] Pending 01/06/2022 01/06/2023 1 1 Review Outpatient (Routine) - Authorized Specialty Diagnoses / Procedures Referred By Contact Refer red To Contact Diagnoses Ascites Chronic Matthew Jerome M.B.B.S., [facility] Procedures US Paracentesis with Imaging Guidance M.D. [address] [place] [address] [phone] Referral ID Status Reason Start Date Expiration Date Visits V isits Requested Authorized [id number] Authorized 11/19/2021 11/19/2022 1 1 Outpatient (Routine) - Closed Specialty Diagnoses / Procedures Referred By Contact Refer red To Contact Diagnoses Ascites Chronic Matthew Jerome M.B.B.S., [facility] Procedures US Paracentesis with Imaging Guidance M.DSuma [address] [place] [address] [phone] Referral ID Status Reason Start Date Expiration Date Visits Requ ested Visits Authorized [id number] Closed 11/19/2021 11/19/2022 1 1 Encounter Details Date Type Department Care Team Description 01/06/2022 Clinical Communication Department of Felicita Spicer [place] [phone] [address] [place] [phone] Social History Tobacco Use Types Packs/Day [...] you attend advent or Patient refused 2021 yarsanism services? 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 [address] [place] [phone] Virtual Visit Transplant Matthew Jerome 2 Joshua RodriguezBSumaBLilian Bedolla [address] [place] [phone] Office Visit Gastroenterology and Matthew Jerome 2 Hepatology Joshua RodriguezBSumaBSumaSLilian Moise [address] [place] [phone] Appointment Radiology Matthew Jerome 2 YJoshuaBSumaBLilian Bedolla [address] [place] [address] [phone] Hospital Gastroenterology and Matthew Jerome Cirrhos is Alcoholic (HCC) 2 Encounter Hepatology Tyrell Rodriguez M.D. [address] [place] [phone] Anesthesia Event Gastroenterology and Rl, 2 Hepatology Ervin Burgos M.D. [address] [place] [phone] Surgery Gastroenterology and Matthew Jerome ESOPHAG OGASTRODUODENOSCOPY 2 Hepatology Tyrell Rodriguez M.D. [address] [place] [phone] Scheduled Orders Name Type Priority Associated [...] Cirrhosis Alc oholic (HCC) 03/20/2022 8:45 AM DOUGHNUT ICER MACHINE Hypertension Portal (HCC) documented as of this [...] documented as of this encounter Care Teams Pca Relationship Specialty Start Date End Date Ana Red P.A.-C. PCP - General Internal Medicine 12/01/[address] [place] [phone] [facility] [place] [facility] 08/25/21 Ervin Schroeder MD Referring Provider Family Medicine 03/24/[address] [place] [address] documented as of this encounter
--- OUTSIDE RECORDS SUMMARY | 2022-02-12 20:25 | XMS_ITS | Encounter Summary ---
:1990 Author Organization [facility] Address [address] [place] [address] Care Team Providers Name Role Phone Ana Red P.A.-C. Primary Care Provider [phone] Encounter Details Date Type Department Care Team Description 12/04/2021 Clinical Communication Division of Jethro, Gastroenterology in Elizabeth Echevarria [place], [place] [address] [facility] [address] [place] [phone] Social History Tobacco Use Types Packs/Day Years [...] you attend confucianist or Patient refused 2021 rastafari services? 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 [address] [place] [phone] Virtual Visit Transplant Matthew Jerome 2 YKishore.B.Kath, Lilian [address] [place] [address] [phone] Office Visit Gastroenterology and Queenie Matthew 2 Hepatology Tyrell Rodriguez M.D. [address] [place] [address] [phone] Appointment Radiology Luischantell Matthew 2 YTyrell M.D. [address] [place] [address] [phone] [facility] (H[facility]) 2 Encounter Hepatology Tyrell Rodriguez M.D. [address] [place] [address] [phone] Anesthesia Event Gastroenterology and Rl, 2 Hepatology Ervin Burgos M.D. [address] [place] [address] [phone] Surgery Gastroenterology and Ilchantell Matthew ESOPHAG OGASTRODUODENOSCOPY 2 Hepatology Tyrell Rodriguez M.D. [address] [place] [address] [phone] Scheduled Procedures Name Priority Associated Diagnoses Date/Time ESOPHAGOGASTRODUODENOSCOPY Cirrhosis Alc oholic (HCC) 03/20/2022 8:45 AM LAMP SHADE MAKER Hypertension Portal (HCC) documented as of this encounter Visit Diagnoses Diagnosis Ascites - Primary Cirrhosis Alcoholic (HCC) Cirrhosis Alcoholic (HCC) Hypertension Portal (HCC) documented in this encounter Additional Health Concerns Assessment Noted Time PHQ-9 Depression Total Score: 10 10/06/2021 5:00 PM CD T documented as of this encounter Care Teams Traffic Control Supervisor Relationship Specialty Start Date End Date Ana Red P.A.-C. PCP - General Internal Medicine 12/01/21 [address] [place] [phone] [facility] 08/25/21 Ervin Schroeder MD Referring Provider Family Medicine 03/24/[address] [place] [address] ADI [place] [address] documented as of this encounter
--- OUTSIDE RECORDS SUMMARY | 2022-02-12 20:25 | XMS_ITS | Encounter Summary ---
:1990 Author Organization [facility] Address [address] [place] [address] Care Team Providers Name Role Phone Ana Red P.A.-C. Primary Care Provider Reason for Referral Specialty Diagnoses / Procedures Referred By Contact Refer red To Contact Ana Red P .A.-C. [facility] Region [address] [place] [address] Referral ID Status Reason Start Date Expiration Date Visits Requ ested Visits Authorized Encounter Details Date Type Department Care Team Description 12/03/2021 Orders Only [facility] Red P.A.-C. [address] [place], [place] [phone] (Wo rk) Social History [...] you attend taoist or Patient refused 2021 zoroastrianism services? 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 [facility] [place] [phone] Appointment Gastroenterology and Adrianne, 2 Hepatology Yue Burciaga M.D. [address] [place] [phone] Virtual Visit Transplant Matthew Jerome 2 Tyrell Rodriguez M.D. [address] [place] [phone] Office Visit Gastroenterology and Matthew Jerome 2 Hepatology Tyrell Rodriguez M.D. [address] [place] [phone] Appointment Radiology LuisMatthew abdul 2 Tyrell Rodriguez M.D. [address] [place] [phone] Hospital Gastroenterology and Matthew Jerome Cirrhos is Alcoholic (HCC) 2 Encounter Hepatology Tyrell Rodriguez M.D. [address] [place] [phone] Anesthesia Event Gastroenterology and Rl, 2 Hepatology Ervin Burgos M.D. [address] [place] [phone] Surgery Gastroenterology and Queenie Matthew ESOPHAG OGASTRODUODENOSCOPY 2 Hepatology Tyrell Rodriguez M.D. 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 PCP - General Internal Medicine 12/01/[address] [place] [phone] [facility] 08/25/21 Ervin Schroeder MD Referring Provider Family Medicine 03/24/[address] [place] [phone] documented as of this encounter
--- OUTSIDE RECORDS SUMMARY | 2022-02-12 20:25 | XMS_ITS | Encounter Summary ---
:1990 Author Organization [facility] Address [address] [place] [address] Care Team Providers Name Role Phone Ana Red P.A.-C. Primary Care Provider [phone] Encounter Details Date Type Department Care Team Description 12/04/2021 Clinical Communication Division of Jethro, Gastroenterology in Elizabeth Echevarria [place], [place] [address] [facility] [address] [place] [phone] Social History Tobacco Use Types Packs/Day Years [...] you attend voodoo or Patient refused 2021 hoahaoism services? 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 [address] [place] [phone] Virtual Visit Transplant Matthew Jerome 2 YKishore.B.Kath, Lilian [address] [place] [address] [phone] Office Visit Gastroenterology and Queenie Matthew 2 Hepatology Tyrell Rodriguez M.D. [address] [place] [address] [phone] Appointment Radiology Luischantell Matthew 2 YTyrell M.D. [address] [place] [address] [phone] [facility] Cirrhos is Alcoholic (HCC) 2 Encounter Hepatology Tyrell Rodriguez M.D. [address] [place] [address] [phone] Anesthesia Event Gastroenterology and Rl, 2 Hepatology Ervin Burgos M.D. [address] [place] [address] [phone] Surgery Gastroenterology and Dechantell Matthew ESOPHAG OGASTRODUODENOSCOPY 2 Hepatology Tyrell Rodriguez M.D. [address] [place] [address] [phone] Scheduled Procedures Name Priority Associated Diagnoses Date/Time ESOPHAGOGASTRODUODENOSCOPY Cirrhosis Alc oholic (HCC) 03/20/2022 8:45 AM GRADES 1 THRU 6 VISITING TEACHER Hypertension Portal (HCC) documented as of this encounter Visit Diagnoses Diagnosis Ascites - Primary Cirrhosis Alcoholic (HCC) Cirrhosis Alcoholic (HCC) Hypertension Portal (HCC) documented in this encounter Additional Health Concerns Assessment Noted Time PHQ-9 Depression Total Score: 10 10/06/2021 5:00 PM CD T documented as of this encounter Care Teams Office Secretary Relationship Specialty Start Date End Date Ana Red P.A.-C. PCP - General Internal Medicine 12/01/21 [address] [place] [phone] [facility] 08/25/21 Ervin Schroeder MD Referring Provider Family Medicine 03/24/[address] [place] [address] ADI [place] [phone] documented as of this encounter
--- OUTSIDE RECORDS SUMMARY | 2022-02-12 20:25 | XMS_ITS | Encounter Summary ---
:[address] [facility] Address [address] [place] [address] Care Team Providers Name Role Phone Ana Red P.A.-C. Primary Care Provider [phone] Encounter Details Date Type Department Care Team Description 12/04/2021 Clinical Communication Division of Jethro, Gastroenterology in Elizabeth Echevarria [place], [place] [address] [facility] [address] [place] [phone] Social History Tobacco Use Types Packs/Day Years [...] you attend jainism or Patient refused 2021 advent services? 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 [address] [place] [phone] Virtual Visit Transplant Matthew Jerome 2 YKishore.B.Kath, Lilian [address] [place] [address] [phone] Office Visit Gastroenterology and Azchantell Matthew 2 Hepatology Tyrell Rodriguez M.D. [address] [place] [address] [phone] Appointment Radiology Azchantell Matthew 2 YTyrell M.D. [address] [place] [address] [phone] Hospital Gastroenterology and [facility] Cirrhos is Alcoholic (HCC) 2 Encounter Hepatology Tyrell Rodriguez M.D. [address] [place] [address] [phone] Anesthesia Event Gastroenterology and Rl, 2 Hepatology Ervin Burgos M.D. [address] [place] [address] [phone] Surgery Gastroenterology and [facility] ESOPHAG OGASTRODUODENOSCOPY 2 Hepatology Tyrell Rodriguez M.D. [address] [place] [address] [phone] Scheduled Procedures Name Priority Associated Diagnoses Date/Time ESOPHAGOGASTRODUODENOSCOPY Cirrhosis Alc oholic (HCC) 03/20/2022 8:45 AM SUPERVISOR LIME Hypertension Portal (HCC) documented as of this encounter Visit Diagnoses Not on filedocumented in this encounter Additional Health Concerns Assessment Noted Time PHQ-9 Depression Total Score: 10 10/06/2021 5:00 PM CD T documented as of this encounter Care Teams [employer] Supervisor Relationship Specialty Start Date End Date Ana Red P.A.-C. PCP - General Internal Medicine 12/01/[address] [place] [address] ADI [place]ua [phone] [facility]- [facility] 08/25/21 Ervin Schroeder MD Referring Provider Family Medicine 03/24/[address] [place] [address] documented as of this encounter
--- OUTSIDE RECORDS SUMMARY | 2022-02-12 20:25 | XMS_ITS | Encounter Summary ---
:1990 Author Organization [facility] Address [address] [place] [address] Care Team Providers Name Role Phone Ana Red P.A.-C. Primary Care Provider [phone] Encounter Details Date Type Department Care Team Description 12/04/2021 Documentation Division of Gastroenterology Concepción Morelos, in [facility] pedro Quintana [address] [facility] [address] [place] [address] [place], [place] [phone] (Wo rk) Social History Tobacco Use Types [...] you attend christian or Patient refused 2021 taoism services? 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 - 12/04/2021 12:44 AM CDT GI fellow business continuity director Catia Carias is a 31 y.o. female [...] is most comfortable having this done at [facility]. She denies n/v, confusion, melena, hematochezia, or [...] would like to receive her care at [facility]. She is planning to come to the [...] today and willing to come back to [place] (lives about 40 min away). I am working with [facility] to get her in for an outpatient para and have forwarded my note to Dr. Jerome as well. Nabila Morelos M.D. Gastroenterology Fellow documented in this encounter Plan of Treatment Upcoming Encounters Date Type Specialty Care Team Description Telemedicine Transplant 2 Appointment Radiology Matthew Jerome 2 YTyrell M.D. [address] [place] [phone] Appointment Gastroenterology and Adrianne, 2 Hepatology Yue Burciaga M.D. [address] [place] [phone] Virtual Visit Transplant Matthew Jerome 2 Tyrell Rodriguez M.D. [address] [place] [phone] Office Visit Gastroenterology and Matthew Jerome 2 Hepatology Tyrell Rodriguez M.D. [address] [place] [address] [phone] Appointment Radiology Matthew Jerome 2 YTyrell M.D. [address] [place] [address] [phone] Hospital Gastroenterology and [facility], Matthew Cirrhos is Alcoholic (HCC) 2 Encounter Hepatology Tyrell Rodriguez, Lilian [address] [place] [address] [phone] Anesthesia Event Gastroenterology and Rl, 2 Hepatology Ervin Burgos M.D. [address] [place] [address] [phone] Surgery Gastroenterology and [facility] [place] ESOPHAG OGASTRODUODENOSCOPY 2 Hepatology Tyrell Rodriguez M.D. [address] [place] [phone] Scheduled Procedures Name Priority Associated Diagnoses Date/Time ESOPHAGOGASTRODUODENOSCOPY Cirrhosis Alc oholic (HCC) 03/20/2022 8:45 AM ACCOUNT EXECUTIVE METALWORKING Hypertension Portal (HCC) documented as of this encounter Visit Diagnoses Not on filedocumented in this encounter Additional Health Concerns Assessment Noted Time PHQ-9 Depression Total Score: 10 10/06/2021 5:00 PM CD T documented as of this encounter Care Teams Ice Cream Vendor Relationship Specialty Start Date End Date Ana Red P.A.-C. PCP - General Internal Medicine 12/01/[address] [place] [address] [place] [phone] [facility]- [place] [facility] 08/25/21 Ervin Schroeder MD Referring Provider Family Medicine 03/24/[address] [place] [address] [place] [address] documented as of this encounter
--- OUTSIDE RECORDS SUMMARY | 2022-02-12 20:25 | XMS_ITS | Encounter Summary ---
:[address] [facility] Address [address] [place] [address] Care Team Providers Name Role Phone Ana Red P.A.-C. Primary Care Provider [phone] Encounter Details Date Type Department Care Team Description 12/02/2021 Hospital Encounter Department of [facility] Cirrhosi s Alcoholic (HCC); Laboratory Medicine Y, M.B.B.S., Hyperten neptali Portal (HCC); in Lilian Paniagua Thrombocytopenia (HCC); [place] [phone] [facility] Abnormal Liver Function Test; [address] [place], [place] Change Mental Status ADI [place] [phone] Social History Tobacco Use Types Packs/Day Years [...] you attend mu-ism or Patient refused 2021 catholic services? 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 [address] [place] [phone] Virtual Visit Transplant Luischantell Matthew 2 Vik RodriguezBGraeme, Lilian [address] [place] [phone] Office Visit Gastroenterology and QueenieNewar 2 Hepatology Joshua RodriguezBSumaBLilian Bedolla [address] [place] [phone] Appointment Radiology Luischantell Matthew 2 YJoshuaB.B.Kath, Lilian [address] [place] [phone] Hospital Gastroenterology and QueenieMatthew Cirrhos is Alcoholic (HCC) 2 Encounter Hepatology Joshua RodriguezB.BGraeme, Lilian [address] [place] [phone] Anesthesia Event Gastroenterology and Rl, 2 Hepatology Ervin Burgos M.D. [address] [place] [phone] Surgery Gastro[facility], Matthew ESOPHAG OGASTRODUODENOSCOPY 2 Hepatology Tyrell Rodriguez M.D. [address] [place] [phone] Scheduled Procedures Name Priority Associated Diagnoses Date/Time ESOPHAGOGASTRODUODENOSCOPY Cirrhosis Alc oholic (HCC) 03/20/2022 8:45 AM BEHAVIORAL SCIENCES DEPARTMENT CHAIR Hypertension Portal (HCC) documented as of this [...] CDT eGFR-Black/Afri >90 >=60 12/02/2021 OWAT can Bahraini mL/min/BSA 6:46 PM CDT Comment: ----ADDITIONAL INFORMATION---- [...] Performing Organization Address City/[facility] Code Phon e Number [facility]- [address] [place] [address] [place] [address] System in [facility] (ABNORMAL) Bilirubin, Total (12/02/2021 4:14 PM [...] Code Phon e Number [facility]- [address] [place] [address] [place] [address] System in [facility] [address] [place] [address] (ABNORMAL) Prothrombin Time (PT) (12/02/2021 4:14 PM CDT) [facility] gist Method Time Signature Prothrombin 33.5 (H) [...] Code Phon e Number [facility]- [address] [place] [address] [place] [address] System in [facility] [address] documented in this encounter Visit Diagnoses Diagnosis Cirrhosis Alcoholic (HCC) Hypertension Portal (HCC) Thrombocytopenia (HCC) Abnormal Liver Function Test Change Mental Status Cirrhosis Alcoholic (HCC) Cirrhosis Alcoholic (HCC) Hypertension Portal (HCC) documented in this encounter Additional Health Concerns Assessment Noted Time PHQ-9 Depression Total Score: 10 10/06/2021 5:00 PM CD T documented as of this encounter Care Teams Clam Dredge Boat Captain Relationship Specialty Start Date End Date Ana Red P.A.-C. PCP - General Internal Medicine 12/01/[address] [place] [address] [phone] [facility] [place] [facility] 08/25/21 Ervin Schroeder MD Referring Provider Family Medicine 03/24/211979 [address] [place] [address] documented as of this encounter
--- OUTSIDE RECORDS SUMMARY | 2022-02-12 20:25 | XMS_ITS | Encounter Summary ---
:1990 Author Organization [facility] Address [address] [place] [address] Care Team Providers Name Role Phone Ana Red P.A.-C. Primary Care Provider [phone] Reason for Visit Reason Comments BIANKA / Appeal Letter Encounter Details Date Type Department Care Team Description 12/03/2021 Clinical Communication Department [facility], BIANKA / Appeal Letter [facility] Internal Lilian Gee, Medicine in [facility], [address] [place], [place] 300 [facility] [phone] ADI PANIAGUA [phone] (Work) [phone] Social History Tobacco Use Types Packs/Day Years [...] you attend confucianism or Patient refused 2021 congregation services? Do [...] at Date Recorded Female 04/12/2021 7:39 PM VENDETTE documented as of this encounter Miscellaneous Notes Telephone Encounter - Kenyatta Ramos - 12/03/2021 5:[address] Gerard Andino's 12/03 appeal letter was faxed to [phone], confirmation was received documented in this encounter Plan of Treatment Upcoming Encounters Date Type Specialty Care Team Description Telemedicine Transplant 2 Appointment Radiology Matthew Jerome 2 YVikBSumaSSuma, M.D. [address] [place] [phone] Appointment Gastroenterology and Adrianne, 2 Hepatology Yue Burciaga M.D. [address] [place] [phone] Virtual Visit Transplant Queenie Matthew 2 Tyrell Rodriguez M.D. [address] [place] [address] [phone] Office Visit Gastroenterology and [place] 2 Hepatology Tyrell Rodriguez M.D. [address] [place] [address] [phone] Appointment Radiology Matthew Jerome 2 Tyrell Rodriguez M.D. [address] [place] [phone] Hospital Gastroenterology and Matthew Jerome Cirrhos is Alcoholic (HCC) 2 Encounter Hepatology Tyrell Rodriguez M.D. [address] [place] [phone] Anesthesia Event Gastroenterology and Rl, 2 Hepatology Ervin Burgos M.D. [address] [place] [address] [phone] Surgery Gastroenterology and Matthew Jerome ESOPHAG OGASTRODUODENOSCOPY 2 Hepatology Tyrell Rodriguez M.D. [address] [place] [phone] Scheduled Procedures Name Priority Associated Diagnoses Date/Time ESOPHAGOGASTRODUODENOSCOPY Cirrhosis Alc oholic (HCC) 03/20/2022 8:45 AM VENDETTE Hypertension Portal (HCC) documented as of this encounter Visit Diagnoses Not on filedocumented in this encounter Additional Health Concerns Assessment Noted Time PHQ-9 Depression Total Score: 10 10/06/2021 5:00 PM CD T documented as of this encounter Care Teams Fruit And Vegetable Factory Worker Relationship Specialty Start Date End Date Ana Red P.A.-C. PCP - General Internal Medicine 12/01/[address] [place] [phone] [facility]- [place] lab 08/25/21 Ervin Schroeder MD Referring Provider Family Medicine 03/24/[address] [place] [address] documented as of this encounter
--- OUTSIDE RECORDS SUMMARY | 2022-02-12 20:25 | XMS_ITS | Encounter Summary ---
:1990 Author Organization [facility] Address [address] [place] [address] Care Team Providers Name Role Phone Ana Red P.A.-C. Primary Care Provider Encounter Details Date Type Department Care Team Description 12/04/2021 Clinical Communication Division of Jethro, Gastroenterology in Elizabeth Echevarria [place], [place] [address] [facility] [address] [place] [phone] Social History Tobacco Use Types Packs/Day Years [...] you attend protestant or Patient refused 2021 buddhism services? 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 [address] [place] [phone] Virtual Visit Transplant Matthew Jerome 2 YKishore.B.Kath, Lilian [address] [place] [address] [phone] Office Visit Gastroenterology and Queenie Matthew 2 Hepatology Tyrell Rodriguez M.D. [address] [place] [address] [phone] Appointment Radiology Luischantell Matthew 2 YTyrell M.D. [address] [place] [address] [phone] [facility] Cirrhos is Alcoholic (HCC) 2 Encounter Hepatology Tyrell Rodriguez M.D. [address] [place] [address] [phone] Anesthesia Event Gastroenterology and Rl, 2 Hepatology Ervin Burgos M.D. [address] [place] [address] [phone] Surgery Gastroenterology and Richantell Matthew ESOPHAG OGASTRODUODENOSCOPY 2 Hepatology Tyrell Rodriguez M.D. [address] [place] [address] [phone] Scheduled Procedures Name Priority Associated Diagnoses Date/Time ESOPHAGOGASTRODUODENOSCOPY Cirrhosis Alc oholic (HCC) 03/20/2022 8:45 AM FISHER SPONGE HOOKING Hypertension Portal (HCC) documented as of this encounter Visit Diagnoses Diagnosis Ascites - Primary Cirrhosis Alcoholic (HCC) Cirrhosis Alcoholic (HCC) Hypertension Portal (HCC) documented in this encounter Additional Health Concerns Assessment Noted Time PHQ-9 Depression Total Score: 10 10/06/2021 5:00 PM CD T documented as of this encounter Care Teams Hydraulic Design Engineer Relationship Specialty Start Date End Date Ana Red P.A.-C. PCP - General Internal Medicine 12/01/21 [address] [place] [phone] [facility] 08/25/21 Ervin Schroeder MD Referring Provider Family Medicine 03/24/[address] [place] [address] ADI Paniagua [phone] documented as of this encounter
--- OUTSIDE RECORDS SUMMARY | 2022-02-12 20:25 | XMS_ITS | Encounter Summary ---
:1990 Author Organization [facility] Address [address] [place] [address] Care Team Providers Name Role Phone Ana Red P.A.-C. Primary Care Provider [phone] Encounter Details Date Type Department Care Team Description 12/02/2021 Clinical Communication Pharmacy Prior Auth Ronald smith Jasmynebrant JUAREZ [phone] Social History Tobacco Use Types Packs/Day Years [...] you attend baptism or Patient refused 2021 judaism services? 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 [address] [place] [address] [phone] Appointment Gastroenterology demian Silver 2 Hepatology Yue Burciaga M.D. [address] [place] [phone] Virtual Visit Transplant Matthew Jerome 2 YTyrell M.D. [address] [place] [address] [phone] Office Visit Gastroenterology and LuisMatthew abdul 2 Hepatology Tyrell Rodriguez M.D. [address] [place] [address] [phone] Appointment Radiology LuisMatthew abdul 2 YTyrell M.D. [address] [place] [address] [phone] Hospital Gastroenterology and Matthew Jerome Cirrhos is Alcoholic (HCC) 2 Encounter Hepatology Tyrell Rodriguez M.D. [address] [place] [address] [phone] Anesthesia Event Gastroenterology and Rl, 2 Hepatology Ervin Burgos M.D. [address] [place] [phone] Surgery Gastroenterology and Mousa, Matthew ESOPHAG OGASTRODUODENOSCOPY 2 Hepatology YTyrell, iLlian [address] [place] [phone] Scheduled Procedures Name Priority Associated Diagnoses Date/Time ESOPHAGOGASTRODUODENOSCOPY Cirrhosis Alc oholic (HCC) 03/20/2022 8:45 AM PRODUCTION FOREMAN Hypertension Portal (HCC) documented as of this encounter Visit Diagnoses Not on filedocumented in this encounter Additional Health Concerns Assessment Noted Time PHQ-9 Depression Total Score: 10 10/06/2021 5:00 PM CD T documented as of this encounter Care Teams Automotive Sales Manager Relationship Specialty Start Date End Date Ana Red P.A.-C. PCP - General Internal Medicine 12/01/[address] [place] [phone] [facility]- [place] lab 08/25/21 Ervin Schroeder MD Referring Provider Family Medicine 03/24/[address] [place] [address] documented as of this encounter
--- OUTSIDE RECORDS SUMMARY | 2022-02-12 20:25 | XMS_ITS | Encounter Summary ---
:1990 Author Organization [facility] Address [address] [place] [address] Care Team Providers Name Role Phone Ana Red P.A.-C. Primary Care Provider Reason for Visit Reason Comments Post Hospital Follow-up Encounter Details Date Type Department Care Team Description 12/02/[address] [facility] Internal Ciara Johnson R.N. Follow-up Medicine in [address] [place] [phone] 300 [facility] [address] [phone] [place], [place] (Work) [phone] Social History Tobacco Use [...] you attend druze or Patient refused 2021 congregational services? Do [...] at Date Recorded Female 04/12/2021 7:39 PM RNP documented as of this encounter Miscellaneous Notes [...] Radiology LuisMatthew abdul 2 YTyrell M.D. [address] [place] [address] [phone] Appointment Gastroenterology demian Silver, 2 Hepatology Yue Burciaga M.D. [address] [place] [phone] Virtual Visit Transplant LuisMatthew abdul 2 Tyrell Rodriguez M.D. [address] [place] [address] [phone] Office Visit Gastroenterology and LuisMatthew abdul 2 Hepatology Tyrell Rodriguez M.D. [address] [place] [phone] Appointment Radiology LuisMatthew abdul 2 YTyrell M.D. [address] [place] [address] [phone] Hospital Gastroenterology and LuisMatthew abdul Cirrhos is Alcoholic (HCC) 2 Encounter Hepatology Tyrell Rodriguez M.D. [address] [place] [address] [phone] Anesthesia Event Gastroenterology and Rl, 2 Hepatology Ervin Burgos M.D. [address] [place] [phone] Surgery Gastroenterology and Mousa, Matthew ESOPHAG OGASTRODUODENOSCOPY 2 Hepatology Tyrell Rodriguez M.D. [address] [place] [phone] Scheduled Procedures Name Priority Associated Diagnoses Date/Time ESOPHAGOGASTRODUODENOSCOPY Cirrhosis Alc oholic (HCC) 03/20/2022 8:45 AM RNP Hypertension Portal (HCC) documented as of this encounter Visit Diagnoses Not on filedocumented in this encounter Additional Health Concerns Assessment Noted Time PHQ-9 Depression Total Score: 10 10/06/2021 5:00 PM CD T documented as of this encounter Care Teams V Belt Inspector Relationship Specialty Start Date End Date Ana Red P.A.-C. PCP - General Internal Medicine 12/01/[address] [place] [phone] [facility]- [place] lab 08/25/21 Ervin Schroeder MD Referring Provider Family Medicine 03/24/[address] [place] [address] documented as of this encounter
--- OUTSIDE RECORDS SUMMARY | 2022-02-12 20:25 | XMS_ITS | Encounter Summary ---
:1990 Author Organization [facility] Address [address] [place] [address] Care Team Providers Name Role Phone Ana Red P.A.-C. Primary Care Provider [phone] Encounter Details Date Type Department Care Team Description 11/26/2021 Clinical [facility], Gastroenterology in M.BJhoan, Joshua Kru[address] [place] [address] [phone] Social History Tobacco Use Types Packs/Day Years [...] you attend moravian or Patient refused 2021 latter-day services? Do you belong to any clubs or No 02/10/2022 organizations such as moravian groups, unions, fraSecureWorks or athletic groups, or school groups? 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 [address] [place] [phone] Virtual Visit Transplant Matthew Jerome 2 YTyrell M.D. [address] [place] [address] [phone] Office Visit Gastroenterology and [facility] Matthew 2 Hepatology Tyrell Rodriguez M.D. [address] [place] [phone] Appointment Radiology Queenie Matthew 2 YTyrell M.D. [address] [place] [phone] Hospital Gastroenterology and [facility] Cirrhos is Alcoholic (HCC) 2 Encounter Hepatology Tyrell Rodriguez M.D. [address] [place] [phone] Anesthesia Event Gastroenterology and Rl, 2 Hepatology Ervin Burgos M.D. [address] [place] [address] [phone] Surgery Gastroenterology and [facility] ESOPHAG OGASTRODUODENOSCOPY 2 Hepatology Tyrell Rodriguez M.D. [address] [place] [phone] Scheduled Procedures Name Priority Associated Diagnoses Date/Time ESOPHAGOGASTRODUODENOSCOPY Cirrhosis Alc oholic (HCC) 03/20/2022 8:45 AM OTR VAN CDL TRUCK DRIVER Hypertension Portal (HCC) documented as of this encounter Visit Diagnoses Not on filedocumented in this encounter Additional Health Concerns Assessment Noted Time PHQ-9 Depression Total Score: 10 10/06/2021 5:00 PM CD T documented as of this encounter Care Teams Child Development Teacher Relationship Specialty Start Date End Date Ana Red P.A.-C. PCP - General Internal Medicine 12/01/[address] [place] [address] ADI Chua [phone] [facility]- [place] lab 08/25/21 Ervin Schroeder MD Referring Provider Family Medicine 03/24/[address] [place] [address] documented as of this encounter
--- OUTSIDE RECORDS SUMMARY | 2022-02-12 20:25 | XMS_ITS | Encounter Summary ---
:1990 Author Organization [facility] Address [address] [place] [address] Care Team Providers Name Role Phone Ana Red P.A.-C. Primary Care Provider Encounter Details Date Type Department Care Team Description 12/02/2021 Orders Only [facility] PCP TH OKT Ana Red P.ASuma-C. [address] [facility] [place] [phone] (Wo rk) Social History Tobacco [...] How often do you attend baptist or Patient refused 2021 anabaptist services? Do you belong to any clubs or No 02/10/2022 organizations such as baptist groups, unions, fraUpfront Chromatography or athletic groups, or school groups? 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 [address] [place] [phone] Virtual Visit Transplant Matthew Jerome 2 YTyrell M.D. [address] [place] [address] [phone] Office Visit Gastroenterology and [facility] 2 Hepatology Tyrell Rodriguez, Lilian [address] [place] [phone] Appointment Radiology Sdchantell Matthew 2 YTyrell M.D. [address] [place] [phone] Hospital Gastroenterology and [facility] Cirrhos is Alcoholic (HCC) 2 Encounter Hepatology Tyrell Rodriguez M.D. [address] [place] [phone] Anesthesia Event Gastroenterology and Rl, 2 Hepatology Ervin Burgos M.D. [address] [place] [address] [phone] Surgery Gastroenterology and [facility] ESOPHAG OGASTRODUODENOSCOPY 2 Hepatology Tyrell Rodriguez M.D. [address] [place] [phone] Scheduled Procedures Name Priority Associated Diagnoses Date/Time ESOPHAGOGASTRODUODENOSCOPY Cirrhosis Alc oholic (HCC) 03/20/2022 8:45 AM EPILEPSY PHYSICIAN Hypertension Portal (HCC) documented as of this encounter Visit Diagnoses Not on filedocumented in this encounter Additional Health Concerns Assessment Noted Time PHQ-9 Depression Total Score: 10 10/06/2021 5:00 PM CD T documented as of this encounter Care Teams Burn Nurse Relationship Specialty Start Date End Date Ana Red P.A.-C. PCP - General Internal Medicine 12/01/[address] [place] [address] ADI Chua [phone] [facility]- [place] lab 08/25/21 Ervin Schroeder MD Referring Provider Family Medicine 03/24/[address] [place] [address] documented as of this encounter
--- OUTSIDE RECORDS SUMMARY | 2022-02-12 20:25 | XMS_ITS | Encounter Summary ---
:1990 Author Organization [facility] Address [address] [place] [address] Care Team Providers Name Role Phone Ana Red P.A.-C. 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 [address] [place] [phone] Virtual Visit Transplant Matthew Jerome 2 Y, Tyrell, Lilian [address] [place] [phone] Office Visit Gastroenterology and [facility] 2 Hepatology Tyrell Rodriguez M.D. [address] [place] [phone] Appointment Radiology [facility] 2 YTyrell M.D. [address] [place] [phone] Hospital Gastroenterology and [facility] Cirrhos is Alcoholic (HCC) 2 Encounter Hepatology Tyrell Rodriguez M.D. [address] [place] [phone] Anesthesia Event Gastroenterology and Rl, 2 Hepatology Ervin Burgos M.D. [address] [place] [phone] Surgery Gastroenterology and [facility] ESOPHAG OGASTRODUODENOSCOPY 2 Hepatology Tyrell Rodriguez M.D. [address] [place] [phone] Scheduled Procedures Name Priority Associated Diagnoses Date/Time ESOPHAGOGASTRODUODENOSCOPY Cirrhosis Alc oholic (HCC) 03/20/2022 8:45 AM TELE TECH Hypertension Portal (HCC) documented as of [...] CDT eGFR-Black/Afri >90 >=60 12/02/2021 OWAT can Slovenian mL/min/BSA 6:46 PM CDT Comment: ----ADDITIONAL INFORMATION---- [...] Number [facility]- [address] [place] [address] [place] [address] System in [place] [address] documented in this encounter Visit Diagnoses Diagnosis Change Mental Status - Primary Cirrhosis Alcoholic (HCC) Cirrhosis Alcoholic (HCC) Hypertension Portal (HCC) documented in this encounter Additional Health Concerns Assessment Noted Time PHQ-9 Depression Total Score: 10 10/06/2021 5:00 PM CD T documented as of this encounter Care Teams Etcher Electrolytic Relationship Specialty Start Date End Date Ana Red P.A.-C. PCP - General Internal Medicine 12/01/[address] [place], [place] [address], [place] [phone] [facility] 08/25/21 Ervin Schroeder MD Referring Provider Family Medicine 03/24/[address] [place] [address] ADI Mejía [phone] documented as of this encounter
--- OUTSIDE RECORDS SUMMARY | 2022-02-12 20:25 | XMS_ITS | Encounter Summary ---
:1990 Author Organization [facility] Address [address] [place] [address] Care Team Providers Name Role Phone Ana Red P.A.-C. Primary Care Provider [phone] Encounter Details Date Type Department Care Team Description 12/02/2021 Clinical Communication Division of [facility], Internal Medicine, Callie[facility] [address] [place] [address] [place] [phone] [place], [place] [phone] (Work) [phone] Social History Tobacco Use Types Packs/Day Years [...] you attend anabaptism or Patient refused 2021 tenriism services? 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 [address] [place] [phone] Virtual Visit Transplant Matthew Jerome 2 YKishore.B.SLilian Moise [address] [place] [phone] Office Visit Gastroenterology and [facility] 2 Hepatology Tyrell Rodriguez M.D. [address] [place] [phone] Appointment Radiology [facility] 2 Tyrell Rodriguez M.D. [address] [place] [phone] [facility] Gastroenterology and [facility] Cirrhos is Alcoholic (HCC) 2 Encounter Hepatology Tyrell Rodriguez M.D. [address] [place] [phone] Anesthesia Event Gastroenterology and Rl, 2 Hepatology Ervin Burgos M.D. [address] [place] [address] [phone] Surgery Gastroenterology and [facility] ESOPHAG OGASTRODUODENOSCOPY 2 Hepatology Tyrell Rodriguez M.D. 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 PCP - General Internal Medicine 12/01/[address] [place] [address] ADI Chua [phone] [facility]- [place] lab 08/25/21 Ervin Schroeder MD Referring Provider Family Medicine 03/24/[address] [place] [address] [place] [address] documented as of this encounter
--- OUTSIDE RECORDS SUMMARY | 2022-02-12 20:25 | XMS_ITS | Encounter Summary ---
:1990 Author Organization [facility] Address [address] [place] [address] Care Team Providers Name Role Phone Ana Red P.A.-C. Primary Care Provider [phone] Encounter Details Date Type Department Care Team Description 12/02/2021 Clinical Communication Department of Internal [facility] [address] [place] [phone] Social History Tobacco Use Types Packs/Day Years [...] you attend buddhism or Patient refused 2021 gnosticist services? 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 Telephone Encounter - Sunny Arnold D.O. - [...] 2 Appointment Radiology Matthew Jerome 2 Tyrell Rodriguez, Lilian [address] [place] [address] [phone] Appointment Gastroenterology and Adrianne, 2 Hepatology Yue Burciaga M.D. [address] [place] [phone] Virtual Visit Transplant Matthew Jerome 2 Tyrell Rodriguez, Lilian [address] [place] [address] [phone] Office Visit Gastroenterology and Matthew Jerome 2 Hepatology Tyrell Rodriguez M.D. [address] [place] [address] [phone] Appointment Radiology Matthew Jerome 2 Tyrell Rodriguez M.D. [address] [place] [address] [phone] Hospital Gastroenterology and Matthew Jerome Cirrhos is Alcoholic (HCC) 2 Encounter Hepatology Tyrell Rodriguez, Lilian [address] [place] [phone] Anesthesia Event Gastroenterology and Rl, 2 Hepatology Ervin Burgos M.D. [address] [place] [phone] Surgery Gastroenterology and Mousa, Matthew ESOPHAG OGASTRODUODENOSCOPY 2 Hepatology Tyrell Rodriguez M.D. [address] [place] [phone] Scheduled Procedures Name Priority Associated Diagnoses Date/Time ESOPHAGOGASTRODUODENOSCOPY Cirrhosis Alc oholic (HCC) 03/20/2022 8:45 AM FRUIT DUMPER Hypertension Portal (HCC) documented as of this encounter Visit Diagnoses Not on filedocumented in this encounter Additional Health Concerns Assessment Noted Time PHQ-9 Depression Total Score: 10 10/06/2021 5:00 PM CD T documented as of this encounter Care Teams Cardiac Specialist Relationship Specialty Start Date End Date Ana Red P.A.-C. PCP - General Internal Medicine 12/01/[address] [place] [phone] [facility]- [place] lab 08/25/21 Ervin Schroeder MD Referring Provider Family Medicine 03/24/[address] [place] [phone] documented as of this encounter
--- OUTSIDE RECORDS SUMMARY | 2022-02-12 20:25 | XMS_ITS | Encounter Summary ---
:1990 Author Organization [facility] Address [address] [place] [address] Care Team Providers Name Role Phone Ana Red P.A.-C. Primary Care Provider [phone] Reason for Referral Outpatient (Routine) - Pending Review Specialty Diagnoses / Procedures Referred By Contact Refer red To Contact Sleep Medicine Diagnoses Insomnia [facility] [address] [place] [phone] Referral ID Status Reason Start Expiration Visits Visits Date Date Requested Authorized [id number] Pending Specialty 12/02/2021 12/02/2022 1 1 Review Services Required Scheduling Instructions Schedule stat since her study was cancel led twice Outpatient (Routine) - Closed Specialty Diagnoses / Procedures Referred By Contact Tabatha lamar To Contact Community Internal JESSE Arnold ADI R egion Medicine Jeri CorreaOSuma [address], [place] [address] Referral ID Status Reason Start Date Expiration Date Visits Requ ested Visits Authorized [id number] Closed 12/02/2021 12/02/2022 1 1 Scheduling Instructions Schedule with ana her PCP . Zurdo jules up on liver cirrhosis , and hepatic encephalopathy Outpatient (Routine) - Authorized Specialty Diagnoses / Procedures Referred By Contact Refer brianda To Contact Diagnoses Alcoholic Cirrhosis Of Liver Without Ascites (HCC) Ascites Chronic Sunny Arnold [facility] Region Procedures US Abdomen Complete D.O. [address] [place] [phone] Referral ID Status Reason Start Date Expiration Date Visits V isits Requested Authorized [id number] Authorized 12/02/2021 12/02/2022 1 1 Reason for Visit Reason Comments Post Hospital Follow-up TCM post [facility] stay with discharge on 11/26/2021 Appointment Request (Routine) - Closed Specialty Diagnoses / Procedures Referred By Contact Refer brianda To Contact Community Internal Medicine Referral ID Status Reason Start Date Expiration Date Visits Requ ested Visits Authorized [id number] Closed 12/01/2021 12/01/2022 1 1 Encounter Details Date Type Department Care Team Description 12/02/2021 Office Visit Department of Internal Silvano Arnold cutluzma And 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 Pancreatitis Chronic (HCC); [place] [address] Usp Use Of Opiate Analgesic; [address] [place], [place] Alcohol Use Unspecified With Unspecified Alcohol Induced Disorder (HCC); [place] [address] Alcoholic Cirrhosis Of Liver Without Asc ites (HCC); [phone] Ascites Chronic; Insomnia; [phone] High Risk Medic ation (Fax) Social History [...] you attend episcopal or Patient refused 2021 adventism services? 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 On arrival to [facility], she was unable to follow commands. 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 On arrival to [facility], she was unable to follow commands. [...] could be explained by copper deficiency or Bhavni. 24 hour urine copper was negative. There [...] Appointment Radiology Matthew Jerome 2, M.B.B.S., M.D. [address] [place] [phone] Appointment Gastroenterology and Adrianne, 2 Hepatology Yue Burciaga M.D. [address] [place] [phone] Virtual Visit Transplant Matthew Jerome 2, M.B.B.S., M.D. [address] [place] [address] [phone] Office Visit Gastroenterology and Matthew Jerome 2 Hepatology Tyrell Rodriguez M.D. [address] [place] [phone] Appointment Radiology Matthew Jerome 2 YTyrell M.D. [address] [place] [phone] Hospital Gastroenterology and [place] Matthew Cirrhos is Alcoholic (HCC) 2 Encounter Hepatology Tyrell Rodriguez M.D. [address] [place] [phone] Anesthesia Event Gastroenterology and Rl, 2 Hepatology Ervin Burgos M.D. [address] [place] [phone] Surgery Gastroenterology and [place] Matthew ESOPHAG OGASTRODUODENOSCOPY 2 Hepatology Tyrell Rodriguez M.D. [address] [place] [phone] Scheduled Orders Name Type Priority Associated Diagnoses Order [facility] US Abdomen Complete Imaging RAD - Routine (most Alcoholic Cirr hosis Expected: inpatients and all Of Liver Without 12/02 outpatients) Ascites (HCC) (Approximate), Ascites Chronic Expires: 03/04/2023 Scheduled Procedures Name Priority Associated Diagnoses Date/Time ESOPHAGOGASTRODUODENOSCOPY Cirrhosis Alc oholic (HCC) 03/20/2022 8:45 AM FAST FOOD FRY COOK Hypertension Portal (HCC) Scheduled Referrals Name Type Priority Associated Diagnoses Order [facility] Internal Outpatient Referral Routine Ex pected: Medicine office 12/16/2021 visit (clinic) (Approximate) , Expires: 03/04/2023 Sleep Medicine - Outpatient Referral Routine Insomnia Expe cted: General consult 12/02/2021 (clinic) (Approximate), Expires: 03/04/2023 documented as of this encounter Visit Diagnoses Diagnosis Acute And Subacute Hepatic Failure Witho ut Coma (HCC) - Primary Pancreatitis Chronic (HCC) Usp Use Of Opiate Analgesic Alcohol Use Unspecified [...] as of this encounter Care Teams Rod Puller And Coiler Relationship Specialty Start Date End Date Ana Red P.A.-C. PCP - General Internal Medicine 12/01/[address] [place] [phone] [facility]- [place] lab 08/25/21 Ervin Schroeder MD Referring Provider Family Medicine 03/24/[address] [place] [phone] documented as of this encounter
--- OUTSIDE RECORDS SUMMARY | 2022-02-12 20:25 | XMS_ITS | Encounter Summary ---
:1990 Author Organization [facility] Address [address] [place] [address] Care Team Providers Name Role Phone Elsewhere, Pcp Primary Care Provider Unavailable Encounter Details Date Type Department Care Team Description 11/27/2021 Orders Only Division [facility], [facility] Gerard Andino M.D ., Internal Medicine, [facility], in [place], [facility] [address] [place], [place] [address] [facility] [phone] [place] [address] [phone] Social History Tobacco Use Types Packs/Day Years [...] you attend hindu or Patient refused 2021 taoist services? 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 [address] [place] [phone] Virtual Visit Transplant Matthew Jerome 2 YTyrell M.D. [address] [place] [phone] Office Visit Gastroenterology and Matthew Jerome 2 Hepatology Tyrell Rodriguez M.D. [address] [place] [phone] Appointment Radiology Matthew Jerome 2 Tyrell Rodriguez M.D. [address] [place] [phone] Hospital Gastroenterology and [place] Matthew Cirrhos is Alcoholic (HCC) 2 Encounter Hepatology Tyrell Rodriguez M.D. [address] [place] [phone] Anesthesia Event Gastroenterology and [facility], 2 Hepatology Ervin Burgos M.D. 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
--- OUTSIDE RECORDS SUMMARY | 2022-02-12 20:25 | XMS_ITS | Encounter Summary ---
:1990 Author Organization [facility] Address [address] [place] [address] Care Team Providers Name Role Phone Ana Red P.A.-C. Primary Care Provider [phone] Reason for Visit Reason Comments Abdominal Distention Encounter Details Date Type Department Care Team Description 12/04/2021 Emergency [place], Ascites (Primary Dx); Emergency Department Abdullahi Mendez M.D. Insomnia [address] [place] [address] [address] [place] [phone] (Wo rk) Social History Tobacco Use Types [...] you attend restorationist or Patient refused 2021 anabaptist services? Do you belong to any clubs or No 02/10/2022 organizations such as restorationist groups, unions, fraLocal Geek PC [employer]air or athletic groups, or school groups? 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 If we can do better, please let us know that too. AttachmentsThe following attachments cannot be sent through Care Everywhere. Paracentesis Care After (Honduran)Ascites (Honduran)Trazodone Tablets (Honduran) documented in this encounter Medications at Time [...] in the past. History provided by: Patient language interpreter needed/used: no REVIEW OF SYSTEMS Constitutional: [...] Team Description Telemedicine Transplant 2 Appointment Radiology QueenieNewTyrell Lo 2, M.D. [address] [place] [phone] Appointment Gastroenterology and Adrianne, 2 Hepatology Yue Burciaga M.D. [address] [place] [phone] Virtual Visit Transplant LuisNew abdulTyrell Lo 2, M.D. [address] [place] [phone] Office Visit Gastroenterology and Queenie Matthew 2 Hepatology Tyrell Rodriguez M.D. [address] [place] [phone] Appointment Radiology [facility] Matthew 2 Tyrell Rodriguez M.D. [address] [place] [address] [phone] Hospital Gastroenterology and [facility] Cirrhos is Alcoholic (HCC) 2 Encounter Hepatology Tyrell Rodriguez M.D. [address] [place] [address] [phone] Anesthesia Event Gastroenterology and Rl, 2 Hepatology Ervin Burgos M.D. [address] [place] [address] [phone] Surgery Gastroenterology and [facility] ESOPHAG OGASTRODUODENOSCOPY 2 Hepatology Tyrell Rodriguez M.D. 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 18 12/04/2021 [facility] breaths/min 7:34 AM CDT Specimen Anatomical Collection Method Collection Time Receive d Time (Source) Location / / Volume Laterality Blood 12/04/2021 7:30 AM 7:34 CDT AM CDT Sree Goodman M.D., M.A. LAB BLOOD NON ADD-ON Performing Organization Address City/[facility] Phon e Number [facility] - [address] [place] [address] hCG (Human Chorionic Gonadotropin), Quantitative, (12/04/2021 7:30 AM CDT) athologist Signature HCG, <0.5 <5 IU/L 12/04/2021 [facility] Quantitative, 7:51 AM CDT , P Specimen Anatomical Collection Method Collection Time Receive d Time (Source) Location / / Volume Laterality Blood (Blood, 12/04/2021 7:30 AM 12/05/19 7:34 Venous) CDT AM CDT Sree Goodman M.D., M.A. LAB BLOOD ADD-ON Performing Organization Address City/[facility] Phon e Number [facility] [address] (ABNORMAL) Prothrombin Time (PT) (12/04/2021 7:30 AM CDT) [facility] gist Method Time Signature Prothrombin 31.1 (H) 9.4 - 12.5 12/04/2021 [facility] Time, P sec 7:44 AM CDT INR [...] M.A. LAB BLOOD ADD-ON Performing Organization Address City/[facility] Phon e Number [facility] - [address] [place] [address] Laboratories-[address] Lipase (12/04/2021 7:30 AM CDT) P athologist Signature Lipase, S 44 13 - 60 U/L 12/04/2021 8:30 DTL AM CDT Specimen Anatomical Collection Method Collection Time Receive d Time (Source) Location / / Volume Laterality Blood (Blood, 12/04/2021 7:30 AM 12/05/19 22 8:04 Venous) CDT AM CDT Sree Goodman M.D., M.A. LAB BLOOD ADD-ON Performing Organization Address City/[facility] Phon e Number [facility] - [address] (ABNORMAL) Hepatic Function Panel (12/04/2021 7:30 [...] Address City/State/ZIP Code Phon e Number [facility] - [address] [place] [address] [facility] [place] [address] Laboratories-[facility] 200 [facility] (ABNORMAL) CBC with Differential, Blood (12/04/2021 7:30 AM CDT) [facility] Method Time Signature Hemoglobin 8.0 (L) [...] M.A. LAB BLOOD ADD-ON Performing Organization Address City/State/[facility] Code Phon e Number [facility] - [address] [place] [address] 05 [place] [address] Laboratories-[facility] 200 [facility] (ABNORMAL) Basic Metabolic Panel (12/04/2021 7:30 [...] CDT eGFR-Black/Afri >90 >=60 12/04/2021 DTL can Kazakh mL/min/BSA 8:53 AM CDT Comment: ----ADDITIONAL INFORMATION---- [...] Address City/State/ZIP Code Phon e Number [facility] - [address] [place], [place] [address] [facility] [place] [address] [facility] [address] [facility] [place] [address] [facility] [address] (ABNORMAL) Blood Gas with Coox, Venous (12/04/2021 7:30 AM CDT) [facility] Method Time Signature Venous pO2 36 [...] 7:38 AM CDT Venous Sample Venipunct 12/04/2021 [facility] 7:38 AM CDT Specimen Anatomical Collection Method Collection Time Receive d Time (Source) Location / / Volume Laterality Blood (Blood, 12/04/2021 7:30 AM 12/05/19 7:34 Venous) CDT AM CDT Sree Goodman M.D., M.A. LAB BLOOD NON ADD-ON Performing Organization Address City/State/ZIP Code Phon e Number [facility] - [address] [place], [place] [address] [place] [address] Laboratories-[facility] [address] documented [...] documented as of this encounter Care Teams Deck Cadet Relationship Specialty Start Date End Date Ana eRd P.A.-C. PCP - General Internal Medicine 12/01/[address] [place] [address] [phone] [facility]- [place] lab 08/25/21 Ervin Schroeder MD Referring Provider Family Medicine 03/24/[address] [place] [phone] documented as of this encounter
[2022-02-12 20:26] LABS: Slide Review Reflex No
--- OUTSIDE RECORDS SUMMARY | 2022-02-12 20:26 | XMS_ITS | Encounter Summary ---
:1990 Author Organization [facility] Address [address] [place] [address] Care Team Providers Name Role Phone Ana Red P.A.-C. Primary Care Provider [phone] Encounter Details Date Type Department Care Team Description 11/26/2021 [facility] Dena Schroeder tohepatitis Non Alcoholic (Primary Dx); AND CLINICS Ervin Schaefer M.D. 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 [address] [place] [phone] Virtual Visit Transplant Matthew Jerome 2 YKishore.B.SSuma, Lilian [address] [place] [phone] Office Visit Gastroenterology and [place] Matthew 2 Hepatology Tyrell Rodriguez M.D. [address] [place] [address] [phone] Appointment Radiology [place] Matthew 2 YTyrell M.D. [address] [place] [address] [phone] Hospital Gastroenterology and [facility] Cirrhos is Alcoholic (HCC) 2 Encounter Hepatology Tyrell Rodriguez M.D. [address] [place] [phone] Anesthesia Event Gastroenterology and Rl, 2 Hepatology Ervin Burgos M.D. [address] [place] [phone] Surgery Gastroenterology and [facility] ESOPHAG OGASTRODUODENOSCOPY 2 Hepatology Tyrell Rodriguez M.D. 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 PCP - General Internal Medicine 12/01/[address] [place] [address] [facility] [id number] [facility] 08/25/21 Ervin Schroeder MD Referring Provider Family Medicine 03/24/[address] [place] [address] [place] [id number] documented as of this encounter
--- OUTSIDE RECORDS SUMMARY | 2022-02-12 20:26 | XMS_ITS | Encounter Summary ---
:1990 Author Organization [facility] Address [address] [place] [address] Care Team Providers Name Role Phone Elsewhere, Pcp Primary Care Provider Unavailable Reason for Referral Outpatient (Routine) - Authorized Specialty Diagnoses / Procedures Referred By Contact Refer red To Contact Diagnoses Cirrhosis Alcoholic (HCC) Gerard Andino M.D., M.S. [address] [place] [address] Referral ID Status Reason Start Date Expiration Date Visits V isits Requested Authorized [id number] Authorized 11/26/2021 11/26/2022 1 1 Medication Prior Authorization - Denied Specialty Diagnoses / Procedures Referred By Contact Refer red To Contact Gerard Andino M.D. , M.S. [address] [place] [phone] Referral ID Status Reason Start Date Expiration Date Visits Requ ested Visits Authorized [id number] Denied 1 1 Reason for Visit Reason Comments Altered Mental Status Auth/Cert Specialty Diagnoses / Procedures Referred By Contact Refer red To Contact Diagnoses Change Mental Status Malaise (Concern For Covid-19) Encephalopathy Procedures ETU Referral ID Status Reason Start Date Expiration Date Visits Requ ested Visits Authorized [id number] 1 1 Encounter Details Date Type Department Care Team Description 11/12/2021 - [facility] Rosaura Sevilla M.D., M.P.H. [address] [place] [address] Encephalopathy (Primary Dx); [facility] [address] [place] [address] Change Mental Status; [facility] Jody Aguilar M.B., B.Chir. [address] [place] [phone] Malaise (Concern For Covid-19); Lambert Tate [facility] ([facility]) [facility], Third Floor [address] [place] [phone] Social History Tobacco Use Types Packs/Day Years [...] you attend uatsdin or Patient refused 2021 rastafari services? Do [...] or the highest technical, or vocational p [employer] degree you have received? 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 [...] DISCHARGE RECOMMENDATIONS - recommend establishing care with [facility] PCP to centralize care FOR PCP - [...] Nicotine Dependence 11/28/2021 1:30 PM LAB 01 [facility] Laboratory Medicine 01/21/2022 12:15 PM [...] AM CDT You were discharged from the [facility] Gastroenterology A Service. Please identify this service name if you call with questions after hospitalization. AttachmentsThe following attachments cannot be sent through Care Everywhere. Diclofenac (On the skin) (Israeli)Lidocaine Patch (On the skin) (Israeli) Sulfamethoxazole/Trimethoprim (By mouth) (Israeli)documented in this encounter Medications at Time of [...] Medical Care - Home Health Care Name: [facility] Office Contact: Nurse How do we reach your agency on a weekend/holiday? [phone] ( FYI unavailable to re-start services on [...] directive. PRIMARY SERVICE: - Please provide a non-[facility] home health order for: detention care, medication [...] and minimize these if possible in the longterm. We have discontinued gabapentin and also her [...] Cup supplements available. Danie albright requested technical document writer order her some apple slices and [...] -13 kg Estimated Needs: Total Calorie Needs: 0969-0630 calories/day Method to Estimate Energy Needs: Mueller-Roberts (Basal to Basal + 20% (HB +20- [...] about patient's nutritional care please contact pager [phone] on weekdays or [phone] on weekends/holidays. Jody Aguilar M.B., B.Chir. - [...] and minimize these if possible in the longterm. We have discontinued gabapentin and also her [...] Bergeron M.D. - 11/25/2021 6:14 AM CDT [facility] Gastroenterology A PROGRESS NOTE SUBJECTIVE Ms. [...] / PLAN Ms. Carias is hospitalized on [facility] Gastroenterology A for evaluation and management [...] Acute care monitoring needs Plan discussed with [facility] Gastroenterology A Pole Peeling Machine Operator, Jody Hernandez M.B., who was present during judd portions of the evaluation today. Please page the [facility] [place] [phone] with any questions. Jody Aguilar M.B., B.Chir. [...] and minimize these if possible in the longterm. We have discontinued gabapentin and also her [...] / PLAN Ms. Carias is hospitalized on [facility] Gastroenterology A for evaluation and management [...] Acute care monitoring needs Plan discussed with [facility] Gastroenterology A Pole Peeling Machine Operator, Jody Hernandez MSumaBSuma, who was present during judd portions of the evaluation today. Please page the [facility] [place] [phone] with any questions. Dina Campa M.D. Internal [...] thiamine, vitamin A, zincsupplementation. Paty Maynard, PharmD, [facility] [phone] Jody Aguilar M.B., B.Chir. - 11/23/2021 9:26 [...] and minimize these if possible in the longterm. We have discontinued gabapentin and also her [...] 22 2021. She went out to the [facility] yesterday. She was talking in coherent sentences [...] and minimize these if possible in the rat exterminator. We have discontinued gabapentin and also her [...] and minimize these if possible in the rat exterminator. We have discontinued gabapentin and also her [...] Sang, Maintained attention, Fell asleep Upon arrival, Christelel was alert, and was verbally responsive to [...] Medicine and can be reached via pager [phone]. Session Information Music Therapy Time Spent (Min): [...] antibiotics, spironolactone, thiamine 100 mg, vitamin A 53117 units Mon Wed, zinc sulfate 220 mg [...] 0 kg Estimated Needs: Total Calorie Needs: 0959-9400 calories/day Method to Estimate Energy Needs: Mueller-Roberts (Basal to Basal + 10%) Weight Used [...] about patient's nutritional care please contact pager [phone] on weekdays or [phone] on weekends/holidays. Jody Aguilar M.B., Umu. - [...] and minimize these if possible in the longterm. We have discontinued gabapentin and also her [...] Medical Care - Home Health Care Name: [facility] Office Contact: Nurse How do we reach your agency on a weekend/holiday? [phone] ( FYI unavailable to re-start services on [...] directive. PRIMARY SERVICE: - Please provide a [facility] health order for: detention care, medication [...] / PLAN Ms. Carias is hospitalized on [facility] Gastroenterology A for evaluation and management [...] Vitamin and mineral supplements Plan discussed with [facility] Gastroenterology A Pole Peeling Machine Operator, Jody Hernandez M.B., who was present during judd portions of the evaluation today. Please page the [facility] [place] [phone] with any questions. Dina Campa M.D. Internal Medicine, PGY-2 Hima Messer M.D. - 11/19/2021 12:30 PM CDT SUBJECTIVE Interim developments since the initial psychiatric consult and subsequent follow-up were reviewed prior to meeting with Ms. Carias who tells me she is at [facility] in [place], [place] and it is 2021 (as she [...] contact the psychiatry consult service pager at [phone]. Hima Messer M.D. 11/19/2021 Nabila Maynard, Pharm.D., [...] Nutrition: On tube feeds. All meds via [employer]. Paty Maynard, EmperatrizD, [facility] [phone] Jody Aguilar M.B., B.Chir. - 11/19/2021 9:44 [...] and minimize these if possible in the rat exterminator. We have discontinued gabapentin and also her [...] Guerrier M.D. - 11/18/2021 5:19 PM CDT [facility] Palliative Care Consultation Service Progress Note [...] for having the Palliative Medicine team A ([phone]) participate in the care of this patient. [...] team, and can be reached via pager [phone]. Session Information Music Therapy Time Spent (Min): [...] prevacid, spironolactone, thiamine 100 mg, vitamin A 32426 units Wed, zinc sulfate 220 mg Pertinent [...] 0 kg Estimated Needs: Total Calorie Needs: 3073-7123 calories/day Method to Estimate Energy Needs: Mueller-Roberts (Basal to Basal + 10%) Weight Used [...] about patient's nutritional care please contact pager [phone] on weekdays or [phone] on weekends/holidays. Jody Aguilar M.B., B.Chir. - [...] and minimize these if possible in the rat exterminator. We have discontinued gabapentin and also her [...] / PLAN Ms. Carias is hospitalized on [facility] Gastroenterology A for evaluation and management [...] Please contact the primary service pager - [phone] with any questions. Electronically signed by: Gerard [...] 0 kg Estimated Needs: Total Calorie Needs: 3185-6334 calories/day Method to Estimate Energy Needs: Mueller-Roberts (Basal to Basal + 10%) Weight Used [...] about patient's nutritional care please contact pager [phone] on weekdays or [phone] on weekends/holidays. Tiffanie Boyd - 11/17/2021 1:00 [...] Pop Favorite Songs, Artists, or Radio Stations: [place], Pop, soft rock Music Therapy Treatment Plan [...] musical preferences. He shared their love for [place], and classic [place] songs were played to promote relaxation and coping support. Christelle gave a smile in response to Toy Storysong, and mouthed the words to You'll Be in My Heart. Lobito expressed appreciation for music therapy support. Music therapy will continue to be available to support Christelle as a part of the Palliative Medicine team, and can be reached via pager [phone]. Session Information Music Therapy Time Spent (Min): [...] and minimize these if possible in the rat exterminator. We have discontinued gabapentin and also her [...] 8:00 AM CDT Neurology Consult Note Supervising Pole Peeling Machine Operator: Dr. Renee Gale Service pager: [phone] SUBJECTIVE Referral [facility] Consult question: Alternative neurological explanation [...] progressively more confused. She was transferred to [facility] on 11/12. Initially on presentation the [...] Friends and Family: Twice a week Attends Anabaptist Services: Never Active Member of Clubs or [...] to page the Neurology Consult pager at [phone] with any questions or concerns and we [...] and minimize these if possible in the longterm. We have discontinued gabapentin and also her [...] of the Neurology consult Service. Examined in [place] [address] room 251. Neuro: While her eyes were [...] follow. Please page the Neurology Consult Service ([phone]) with any questions. Total time 25 min. DIAGNOSES #1 Hepatic encephalopathy #2 Decompensated alcoholic liver disease #3 Rule out nonconvulsive seizures isel Vieyra M.D. - 11/15/2021 2:47 PM CDT Neurology Consult Note Supervising Pole Peeling Machine Operator: Dr. Renee Gale Service pager: [phone] SUBJECTIVE Referral [facility] Consult question: Alternative neurological explanation [...] progressively more confused. She was transferred to [facility] on 11/12. Initially on presentation the [...] Friends and Family: Twice a week Attends Anabaptist Services: Never Active Member of Clubs or [...] injection 5,000 Units, 5,000 Units, subcutaneous, Q8H [facility], Dina Campa M.D., 5,000 Units at 11/15/21 1333 lactulose solution 20 g (CHRONULAC), 20 g, gastric tube, TID, Gerard Andino M.D., M.S., 20 g at 11/15/21 1333 lansoprazole suspension 30 mg (PREVACID), 30 mg, gastric tube, Daily before breakfast, Harihs Schulz M.D., 30 mg at 11/15/21 0620 [...] to page the Neurology Consult pager at [phone] with any questions or concerns and we [...] and minimize these if possible in the longterm. We have discontinued gabapentin and also decrease [...] 71.9 kg (11/12/2021) Current Weight: 71.9 kg [place] Body Weight (Calculated) : 51.4 kg BMI [...] 61.6 kg Estimated Needs: Total Calorie Needs: 2594-7847 calories/day Method to Estimate Energy Needs: Mueller-Roberts (Basal to Basal + 10%) Weight Used [...] formula, 1500 calories, and 68 gm protein, utd986% of Dietary Reference Intake for vitamins/minerals weston [...] about patient's nutritional care please contact pager [phone] on weekdays or [phone] on weekends/holidays. Gerard Andino M.D., M.S. - [...] / PLAN Ms. Carias is hospitalized on [facility] Gastroenterology A for evaluation and management of hepatic encephalopathy in the setting of lactulose noncompliance. Her encephalopathy has resolved with appropriate administration of lactulose and bowel movement resumption. She is nonverbal at the moment but alert. Derrek not think this is merchandising representative of hepatic encephalopathy and is rather [...] Please contact the primary service pager - [phone] with any questions. Electronically signed by: Gerard [...] tryand minimize these if possible in the longterm. We have discontinued gabapentin and also decrease [...] she does not know anyhing about her denominational. Family: Family members were not present Maria De Jesus/Tradition: The patient's denominational is unknown Plan: Will remain available for spiritual care as needed or requested. Chaplains can be contacted bypaging [phone] ([facility]) or [phone] ([place]). Jody Aguilar M.B., B.Chir. - 11/13/2021 10:05 [...] tryand minimize these if possible in the rat exterminator. We will discontinue gabapentin and also decrease [...] / PLAN Ms. Carias is hospitalized on [facility] Gastroenterology A for evaluation and management [...] Please contact the primary service pager - [phone] with any questions. Electronically signed by: Gerard [...] COVID therapies indicated. Evon Rodriguez Pharm.D., R.Ph. [phone] documented in this encounter H&P Notes Jody [...] tryand minimize these if possible in the longterm. #2 Ascites This is still present. #3 History of acute kidney injury Repeat creatinine is still in a normal range at 0.7. #4 Marijuana use Gerard Andino M.D., M.S. - 11/12/2021 3:38 AM CDT [facility] Gastroenterology A Admission Note REFERRAL SOURCE: [facility] Emergency Department PRIMARY CARE PROVIDER: Primary [...] in the HPI. ASSESSMENT / PLAN Ms. Cairas is a 31 y.o. female with pertinent comorbidities including alcoholic cirrhosis who is hospitalized on [facility] Gastroenterology A for evaluation and management [...] will be formally staffed with GI A oracle wms consultant Dr. Aguilar in the morning. Please see the supervisory note for further details. Please contact the primary service pager - [phone] with any questions. Electronically signed by: Gerard [...] follow. Please page the Neurology Consult Service ([phone]) with any questions. DIAGNOSES #1 Hepatic encephalopathy [...] Donna Varghese M.D. CT CT Job ID: [id number] Milagros Patel L.G.S.W., M.S.W. - 11/15/2021 11:03 [...] home nursing to help with medications with [facility]. Social work will reconnect to services. Lobito appreciates regular medical updates. OBJECTIVE Patient is hospitalized on [id number]. ASSESSMENT / PLAN ASSESSMENT Patient not appropriate to assess. Patient significant other Lobito is a reliable historian. PLAN -social work submitted the reconnect to [facility] service. Danny Babin, M.S.W. 11/15/21 T Rachel Winston M.D. - 11/15/2021 9:11 AM CDT Psychiatry Consult Note Consult Question - encephalopathy and hallucination not explained by hepatic etiology, concern for catatonia RECOMMENDATIONS *Please refer to the oracle wms consultant's note for final recommendations* Patient's presentation [...] Carias is a 31 y.o. female from [place], [place] who was admitted 11/12/2021 1:11 AM [...] Friends and Family: Twice a week Attends Anabaptist Services: Never Active Member of Clubs or [...] 28.4 kg/m?? Mental Status Examination (MSE): Ms. Carais appeared jaundiced with distended abdomen. Wearing casual [...] contact the C/L Psychiatry on-call service pager [phone] with any questions. Rachel Winston M.D. Personnel Supervisor Nessa Mcfarland M.D. - 11/14/2021 4:21 PM CDT [facility] Palliative Medicine SUPERVISOR HYDROCHLORIC AREA/PA Collaborative Visit Note I have discussed the patient with Zenobia Nguyễn APRN/DAPHNEY. I have reviewed the pertinent history. I discussed the impression and plan with the SUPERVISOR HYDROCHLORIC AREA/PA. I agree with the history, examination, impression, and recommendations as documented in today's note from the SUPERVISOR HYDROCHLORIC AREA/PA except as documented below. Ms. Carias is [...] CDTAssociated Order(s): IP CONSULT TO PALLIATIVE CARE [facility] Palliative Medicine New Consult Note Patient: Catia Carias; 31 y.o.female Location: 251/251-P Date of Service: 11/14/2021 Time of Visit: 3:56 PM CDT Hospital Admission Date: 11/12/2021 1:11 AM Hospital Day: 2 Primary Qa Developer: Jody Aguilar M.B., * Primary Care Provider: [...] have reviewed the patient???s record in the [place] Prescription Monitoring Program (OPERA SINGER) with no unexpected findings. The following portions [...] hesitate to contact us at service pager [phone]. It is our pleasure to have the opportunity to participate in Christelle's continued care. Thank you. Zenobia Nguyễn APRN, [facility] Center for Palliative Medicine documented [...] lacking in appropriate nutritional intake. Wheelchair ride [facility] GSOUND was offered as well as a shower and pt refused at this time. Problem: SAFETY ADULT Goal: Maintain a safe environment Outcome: Progressing Note: Pt transitioned to Video monitor from [place], as she has been appropriate in the [...] for catheter care to be done by FACING SLITTER/IA. RN encouraged taking medications PO and reiterated [...] 11/22/21 Time initiated: 1819 Initiated by: Other (FACING SLITTER in hallway with patient) ASSESSMENT: Patient is a 31 y.o. female admitted to [facility] for Change Mental Status. When this technical document writer was walking to a consultation Ms. Carias was ambulating in the hallway with her assigned FACING SLITTER. Patient impulsively got up from wheelchair with no concern for the lines she was connected to. She was attempting to use the phone at the nurses station. Ms. Carias stated to an individual on the phone (possibly [facility] radio station operator), you need to come pick me up, when individual responded questioning her current location, she hung up the phone. When talking with the patient she was initially calm. Ms. Carias suddenly changed her facial expression and hit this technical document writer on the arm and stated, I'm scared. [facility] Security wascalled to assist. Patient's assigned [...] free to contact the ROSMERY RN at [phone], or in an emergent situation by activating the ROSMERY team through the hospital radio station operator by dialing 911. Heather Nassar R.N. - 11/21/2021 8:00 PM CDT This technical document writer making entry as this happened when I came on shift. Patient was assisted to the to betaken outside per service request. Pt was taken out to the courtyard by the FACING SLITTER and boyfriend Bob.Immediately after going to the courtyard, the patient would not follow directions according to the FACING SLITTER. FACING SLITTER tried to get her to stay in her w/c and she would not comply. Pt got out of the w/c and laid in the grass. FACING SLITTER hit her duress button on her badge [...] M.P.H. - 11/12/2021 3:22 AM CDT ED AIR BRUSH DECORATOR NOTE 31 year old female with h/o [...] a supervisoryrole. Rosaura Sevilla M.D., M.P.H. 11/17/21 0091 Rosaura Sevilla M.D., M.P.H. 11/17/21 2385 Titi Oswald M.D. - 11/12/2021 1:54 AM [...] 1:48 AM CDT Patient presents to the [place] via EMS for altered mental status. Patient was discharged yesterday from [facility] for hospitalization of hepatic encephalopathy. Patient's [...] coordinate the care. For questions, contact the [facility] Covid Care Team (CCT): Pager: [phone] In basket: P R[facility] COVID-19 POSITIVE Covid Care e-consult NOTE: At the time of testing, patients are instructed to obtain the result by calling the [employer] result line or by checking their online services account. [facility] - Gerard Andino M.D., M.S. [...] Appointment Radiology Matthew Jerome 2, M.B.B.S., M.D. [address] [place] [address] Appointment Gastroenterology and Adrianne, 2 Hepatology Yue Burciaga M.D. [address] [place] [address] Virtual Visit Transplant Matthew Jerome 2 Tyrell Rodriguez M.D. [address] [place] [phone] Office Visit Gastroenterology and Matthew Jerome 2 Hepatology Tyrell Rodriguez M.D. [address] [place] [phone] Appointment Radiology LuisMatthew abdul 2 Tyrell Rodriguez M.D. [address] [place] [phone] Hospital Gastroenterology and Matthew Jerome Cirrhos is Alcoholic (HCC) 2 Encounter Hepatology Tyrell Rodriguez M.D. [address] [place] [phone] Anesthesia Event Gastroenterology and Rl, 2 Hepatology Ervin Burgos M.D. [address] [place] [phone] Surgery Gastroenterology and Matthew Jerome ESOPHAG OGASTRODUODENOSCOPY 2 Hepatology Tyrell Rodriguez M.D. [address] [place] [phone] Scheduled Procedures Name Priority Associated Diagnoses Date/Time ESOPHAGOGASTRODUODENOSCOPY Cirrhosis Alc oholic (HCC) 03/20/2022 8:45 AM PLATING EQUIPMENT TENDER Hypertension Portal (HCC) Scheduled Referrals Name Type Priority Associated Diagnoses Order S [facility] Outpatient Referral Routine Cirrhosis Alcoholic Ordered: [...] (ABNORMAL) Dipstick, Urine (11/26/2021 6:59 AM CDT) [facility] Method Time Signature Hemoglobin, Trace (A) Negative [...] City/State/ZIP Code Phon e Number [facility] - [address] [place], [place] [address] [place], [place] [id number] [place] [address] [facility] pH, Urine (11/26/2021 6:59 AM CDT) P athologist Signature pH, U 6.3 4.5 - 8.0 11/26/2021 8:06 DTL AM CDT Specimen Anatomical Collection Method Collection Time Receive d Time (Source) Location / / Volume Laterality Urine 11/26/2021 6:59 AM 2 7:15 CDT AM CDT Gerard Andino M.D., M.S. LAB URINE ORDERABLES Performing Organization Address City/[facility]/ZIP Code Phon e Number [facility] - [address] [place], [place] [address] [address] [place], [place] [id number] [place] [address] Osmolality, Urine (11/26/2021 6:59 AM CDT) P athologist Signature Osmolality, U 325 150 - 1150 11/26/2021 DTL mOsm/kg 8:06 AM CDT Specimen Anatomical Collection Method Collection Time Receive d Time (Source) Location / / Volume Laterality Urine 11/26/2021 6:59 AM 2 7:15 CDT AM CDT Gerard Andino M.D., M.S. LAB URINE ORDERABLES Performing Organization Address City/[facility]/ZIP Code Phon e Number [facility] - [address] [place], [place] [address] [facility] [place] [place] [address] [facility] [address] (ABNORMAL) Microscopic Automated (11/26/2021 6:59 AM CDT) Analysis Performed [facility] Time Signature Microscopy Abnormal 11/26/2021 DTL 7:48 [...] M.S. LAB URINE ORDERABLES Performing Organization Address City/[facility] Phon e Number [facility] - [address] Bacterial Culture, Aerobic + Susc, Urine (11/26/2021 6:59 AM CDT) [facility] Method Time [facility] Urine Culture No growth 11/27/2021 DT after [...] Organization Address City/[facility] [place] Phon e Number [address] (ABNORMAL) Urinalysis with Microscopic: Urine, Midstream (11/26/2021 6:59 AM CDT) Patholo gist Method [...] Organization Address City/State/ZIP Code Phon e Number [facility] - [address] [place], [place] [address] [facility] [place] [address] [facility] [address] Abdomen Pelvis [...] venous hypertension. 3. Normal caliber bowel. Jovanna PERALES CT PROCEDURES Phosphorus Inorganic (11/25/2021 6:55 AM CDT) P athologist Signature Phosphorus 3.2 2.5 - 4.5 11/25/2021 DTL (Inorganic), S mg/dL 7:54 AM CDT Specimen Anatomical Collection Method Collection Time Receive d Time (Source) Location / / Volume Laterality Blood (Blood, 11/25/2021 6:55 AM 11/26/19 22 7:33 Venous) CDT AM CDT Dina Campa M.D. LAB BLOOD ADD-ON Performing Organization Address [facility] Phon e Number [facility] - [address] [place] [address] 05 [facility] [place] [address] [address] Magnesium (11/25/2021 6:55 AM CDT) P athologist Signature Magnesium, S 1.7 1.7 - 2.3 11/25/2021 DTL mg/dL 7:54 AM CDT Specimen Anatomical Collection Method Collection Time Receive d Time (Source) Location / / Volume Laterality Blood (Blood, 11/25/2021 6:55 AM 11/26/19 22 7:33 Venous) CDT AM CDT Dina Campa M.D. LAB BLOOD ADD-ON Performing Organization Address City/[facility] Phon e Number [facility] - [address] (ABNORMAL) Basic Metabolic Panel (11/25/2021 6:55 [...] 11/25/2021 DTL Black/ mL/min/BSA 7:54 AM CDT Ugandan Comment: ----ADDITIONAL INFORMATION---- Estimated GFR calculated using [...] Organization Address City/State/ZIP Code Phon e Number [facility] - [address] [place], [place] [address] [facility] [place] [address] [facility] 200 [facility] (ABNORMAL) CBC with Differential, Blood (11/25/2021 6:55 AM CDT) [facility] gist Method Time Signature Hemoglobin 7.5 [...] Organization Address City/State/ZIP Code Phon e Number [facility] - [address] [place], [place] [address] [facility] [place] [address] [facility] 200 [facility] DX Abdomen Portable Anterior Posterior 1 View [...] with Differential, Blood (11/24/2021 10:39 AM CDT) [facility] Method Time Signature Hemoglobin 8.4 (L) [...] Organization Address City/State/ZIP Code Phon e Number [facility] - [address] [place], [place] [address] [facility] [place] [address] [facility] [address] [facility] (ABNORMAL) Basic Metabolic Panel (11/23/2021 6:01 [...] 11/23/2021 DTL Black/ mL/min/BSA 8:52 AM CDT Ugandan Comment: ----ADDITIONAL INFORMATION---- Estimated GFR calculated using [...] Organization Address City/State/ZIP Code Phon e Number [facility] - [address] [place], [place] [address] [facility] [place] [place] [address] [facility] [address] (ABNORMAL) CBC without Differential (11/23/2021 6:01 AM CDT) [facility] Method Time Signature Hemoglobin 7.3 (L) 11.6 - 11/23/2021 DHPM 15.0 g/dL 8:56 AM CDT Hematocrit 21.5 (L) 35.5 - 11/23/2021 DHPM 44.9 % 8:56 AM CDT Erythrocytes 1.89 (L) 3.92 - 11/23/2021 DHPM 5.13 8:56 AM CDT x10(12)/L MCV 113.8 (H) 78.2 - 11/23/2021 PM 97.9 fL 8:56 AM CDT RBC Distrib Width 22.5 (H) 12.2 - 11/23/2021 PM 16.1 % 8:56 AM CDT Platelet Count [...] M.S. LAB BLOOD ADD-ON Performing Organization Address City/[facility] Phon e Number [facility] - [address] [address] [address] (ABNORMAL) Dipstick, Urine (11/21/2021 6:42 PM CDT) [facility] gist Method Time Signature Hemoglobin, Large (A) [...] ORDERABLES Performing Organization Address [facility] Phon e Number [facility] - [address] [place] [address] [place] [address] [facility] 200 [facility] Osmolality, Urine (11/21/2021 6:42 PM CDT) athologist Signature Osmolality, U 433 150 - 1150 11/21/2021 DT mOsm/kg 7:58 PM CDT Specimen Anatomical Collection Method Collection Time Receive d Time (Source) Location / / Volume Laterality Urine 11/21/2021 6:42 PM 2 7:03 CDT PM CDT Jovanna Bergeron M.D. LAB URINE ORDERABLES Performing Organization Address City/[facility]/ZIP [facility] Phon e Number [facility] - [address] [place], [place] [address] [place] [address] pH, Random, Urine (11/21/2021 6:42 PM CDT) athologist Signature pH, Random, U 6.5 4.5 - 8.0 11/21/2021 DT 7:58 PM CDT Specimen Anatomical Collection Method Collection Time Receive d Time (Source) Location / / Volume Laterality Urine 11/21/2021 6:42 PM 2 7:03 CDT PM CDT Jovanna Bergeron M.D. LAB URINE ORDERABLES Performing Organization Address City/[facility]/ZIP Code Phon e Number [facility] - [address] [place], [place] [address] 05 [place] [address] (ABNORMAL) Microscopic Manual (11/21/2021 6:42 PM [...] Organization Address City/[facility]/ZIP Code Phon e Number [facility] - [address] [place], [place] [address] [facility] [place] [address] Laboratories-[address] (ABNORMAL) Urinalysis with Microscopic: Urine, Catheter (11/21/2021 6:42 PM CDT) [facility] Method Time Signature Source Urine, 11/21/2021 DTL [...] Organization Address City/State/ZIP Code Phon e Number [facility] - [address] [place], [place] [address] [facility] [place] [place] [address] Laboratories-[address] Bacterial Culture, Aerobic + Susc, Urine [...] Organization Address City/[facility] Phon e Number [facility] - [address] [place], [place] [address] [facility] [place] [address] [facility] 200 [facility] (ABNORMAL) SPSMA Result (11/21/2021 11:25 AM CDT) [...] Reviewed by: Tech 11/21/2021 1:07 PM CDT DHPM Specimen Anatomical Collection Method Collection Time Receive d Time (Source) Location / / Volume Laterality Blood (Blood, 11/21/2021 11:25 11/21/2021 Venous) AM CDT 12:03 PM CDT Shannan Rand M.D. LAB BLOOD ADD-ON Performing Organization Address City/[facility] Phon e Number [facility] - [address] [place], [place] [address] [place] [address] [facility] [address] [facility] Pernicious Anemia [place] (11/21/2021 11:25 AM CDT) athologist Signature Vitamin B12 621 180 - 914 11/21/2021 [facility] Assay, S ng/L 6:21 PM CDT Specimen Anatomical Collection Method Collection Time Receive d Time (Source) Location / / Volume Laterality Blood (Blood, 11/21/2021 11:25 11/21/2021 4:05 Venous) AM CDT PM CDT Dina Campa M.D. LAB BLOOD NON ADD-ON Performing Organization Address City/[facility] Code Phon e Number [facility] [address] [place], [place] [address] [facility] [place] [address] Laboratory Medicine and Pathology [address] [place] (ABNORMAL) Cystatin C with Estimated GFR, S (11/21/2021 11:25 AM CDT) [facility] eGFR by 60 (L) >60 11/21/2021 DT Cystatin C mL/min/BSA 12:47 PM CDT Comment: [...] Organization Address City/State/ZIP Code Phon e Number [facility] - [address] [place], [place] [address] [facility] [place] [place] [address] [facility] [address] (ABNORMAL) Comprehensive [...] 11/21/2021 DTL Black/ mL/min/BSA 2:53 PM CDT Ugandan Comment: ----ADDITIONAL INFORMATION---- Estimated GFR calculated using [...] Organization Address City/State/ZIP Code Phon e Number [facility] - [address] [place], [place] [address] [facility] [place] [address] [facility] [address] [facility] (ABNORMAL) CBC with Differential, Blood (11/21/2021 11:25 AM CDT) [facility] gist Method Time Signature Hemoglobin 8.4 (L) [...] Organization Address City/[facility] Phon e Number [facility] - [address] [place], [place] [address] [place] [address] [facility] [address] Copper, 24 Hour, Urine (11/21/2021 11:00 AM CDT) athologist Signature Copper, 24 Hr, U 19 9 - 71 11/24/2021 SDSC mcg/24 h 10:42 AM CDT Collection 24 h 11/24/2021 [facility] Duration 10:42 AM CDT Volume 815 mL 11/24/2021 [facility] 10:42 AM CDT Comment: ----ADDITIONAL INFORMATION---- [...] Organization Address City/[facility] Phon e Number [facility] [address] [place], [place] [address] [facility] [place] [address] Laboratory Medicine and Pathology [address] [place] (ABNORMAL) Ceruloplasmin (11/20/2021 6:38 AM CDT) athologist Signature Ceruloplasmin, 15.3 (L) 20.0 - 11/20/2021 DT S 51.0 mg/dL 9:42 AM CDT Comment: [...] at or the on-line test catalog at [employer] for m ore information. Specimen Anatomical Collection Method Collection Time Receive d Time (Source) Location / / Volume Laterality Blood (Blood, 11/20/2021 6:38 AM 11/21/19 8:33 Venous) CDT AM CDT Gerard Andino M.D., M.S. LAB BLOOD ADD-ON Performing Organization Address City/State/[facility] Code Phon e Number [facility] - [address] [place] [address] [facility] [place] [address] [facility] 200 [facility] DX Abdomen Portable Anterior Posterior 1 View [...] reflex Antibody ID) (11/19/2021 2:55 PM CDT) [facility] gist Method Time Signature ABORh B Pos Not 11/19/2021 STRM applicable 3:49 PM CDT Antibody Negative Negative 11/19/2021 STRM Screen 4:03 PM CDT Type & Screen 11/22/2021 11/19/2021 STRM Expiration 23:59 3:49 PM CDT Testing [place] DEFAULT 11/19/2021 STRM Location 3:05 PM CDT Specimen Anatomical Collection Method Collection Time Receive d Time (Source) Location / / Volume Laterality Blood (Blood, 11/19/2021 2:55 PM 11/20/19 22 3:05 Venous) CDT PM CDT Gerard Andino M.D., M.S. LAB BLOOD BANK TEST ORDERABL ES Performing Organization Address City/[facility] Phon e Number [facility] - [address] [place] [address] [facility] STRM [place], [place] [address] [place] [address] Sedimentation Rate (11/19/2021 2:55 PM CDT) Analysis [...] City/State/ZIP Code Phon e Number [facility] - [address] [place], [place] [address] [facility] [place] [place] [address] CRP (C-Reactive Protein) (11/19/2021 2:55 PM CDT) P athologist Signature C-Reactive 6.6 <=8.0 mg/L 11/19/2021 DTL Protein (CRP), 3:54 PM CDT S Specimen Anatomical Collection Method Collection Time Receive d Time (Source) Location / / Volume Laterality Blood (Blood, 11/19/2021 2:55 PM 11/20/19 22 3:29 Venous) CDT PM CDT Gerard Andino M.D., M.S. LAB BLOOD ADD-ON Performing Organization Address [facility] Phon e Number [facility] - [address] [place], [place] [address] [facility] [place] [address] (ABNORMAL) CBC without Differential (11/19/2021 2:55 PM CDT) [facility] Method Time Signature Hemoglobin 8.7 (L) 11.6 [...] ADD-ON Performing Organization Address [facility] Phon e Number [facility] - [address] [place] [address] 05 [facility] [place] [address] [facility]-[address] Bacteria / Raudel Culture, Blood #2 (11/19/2021 12:59 PM CDT) [facility] Method Time Signature Bacteria/Adriana No growth 11/24/2021 [...] Organization Address City/[facility] Phon e Number [facility] - [address] [place], [place] [address] [place] [address] [facility] [address] [facility] Lactate, 3 hour draw (11/19/2021 12:45 PM [...] Organization Address City/[facility] Phon e Number [facility] - [address] [place], [place] [address] [place], [place] [id number] [place] [address] Bacteria / Raudel Culture, [...] Organization Address City/[facility] Phon e Number [facility] - [address] [place], [place] [address] [facility] [place] [address] [facility] [address] Phosphorus Inorganic (11/19/2021 7:13 AM CDT) P athologist Signature Phosphorus 2.9 2.5 - 4.5 11/19/2021 DTL (Inorganic), S mg/dL 8:33 AM CDT Specimen Anatomical Collection Method Collection Time Receive d Time (Source) Location / / Volume Laterality Blood (Blood, 11/19/2021 7:13 AM 11/20/19 8:09 Venous) CDT AM CDT Gerard Andino M.D., M.S. LAB BLOOD ADD-ON Performing Organization Address City/[facility] Phon e Number [facility] - [address] [place], [place] [address] [place] [address] Laboratories-[address] Magnesium (11/19/2021 7:13 AM CDT) P athologist Signature Magnesium, S 1.8 1.7 - 2.3 11/19/2021 DTL mg/dL 8:33 AM CDT Specimen Anatomical Collection Method Collection Time Receive d Time (Source) Location / / Volume Laterality Blood (Blood, 11/19/2021 7:13 AM 11/20/19 8:09 Venous) CDT AM CDT Gerard Andino M.D., M.S. LAB BLOOD ADD-ON Performing Organization Address City/[facility] Phon e Number [facility] - [address] [place], [place] [address] [place], [place] [address] [place] [address] (ABNORMAL) Hepatic Function Panel (11/19/2021 7:13 AM [...] M.S. LAB BLOOD ADD-ON Performing Organization Address City/State/[facility] Code Phon e Number [facility] - [address] [place], [place] [address] [facility] [place] [place] [address] [facility] [address] [facility] (ABNORMAL) Basic Metabolic Panel (11/19/2021 7:13 [...] 11/19/2021 DTL Black/ mL/min/BSA 9:20 AM CDT Ugandan Comment: ----ADDITIONAL INFORMATION---- Estimated GFR calculated using [...] M.S. LAB BLOOD ADD-ON Performing Organization Address City/State/[facility] Code Phon e Number [facility] - [address] [place] [address] [facility] [place] [address] [facility] 200 [facility] (ABNORMAL) CBC with Differential, Blood (11/19/2021 7:13 AM CDT) [facility] gist Method Time Signature Hemoglobin 7.6 [...] Organization Address City/State/ZIP Code Phon e Number [facility] - [address] [place] [address] [facility] [place] [place] [address] [facility] [address] [place] [...] PROCEDURES Gram Stain (11/18/2021 3:29 PM CDT) [facility] Method Time Signature Gram Stain No organisms seen. 11/18/2021 DTL White blood cells present. 10:50 PM CDT Specimen (Source) Anatomical Collection Method Collection Time Re ceived Time Location / / Volume Laterality Peritoneal Fluid 11/18/2021 3:29 11/19/19 22 5:38 PM CDT PM CDT Narrative [facility] - 11/18/2021 10:50 PM CDT Bacterial Culture: Received Bactec aerob ic and Bactec anaerobic bottles Gerard Andino M.D., M.S. LAB MICROBIOLOGY - GENERAL O JOSE Performing Organization Address [facility] Phon e Number [facility] - [id number] [place] [address] Bacterial Culture, Aerobic + Susc (11/18/2021 3:29 PM CDT) [facility] Method Time Signature Bacterial No growth 11/23/2021 DT Culture, after 5 7:47 AM CDT Aerobic + Susc days of incubation. Specimen (Source) Anatomical Collection Method Collection Time Re ceived Time Location / / Volume Laterality Peritoneal Fluid 11/18/2021 3:29 11/19/19 22 5:38 PM CDT PM CDT Narrative [facility] - 11/23/2021 7:47 AM CDT Bacterial Culture: Received Bactec aerob ic and Bactec anaerobic bottles Gerard Andino M.D. M.S. LAB MICROBIOLOGY - GENERAL O JOSE Performing Organization Address [facility] Phon e Number [facility] - [address] [place] [address] Cell Count and Differential, Body Fluid (11/18/2021 3:29 PM CDT) [facility] [employer] Method Time Signature Fluid Type Peritoneal- 11/18/2021 [...] Its performance characteri stics were determined by [facility] in a manner co nsistent with [...] AND STOOLS O RDERABLES Performing Organization Address City/[facility]/ZIP Code Phon e Number [facility] - [address] [place], [place] [address] 05 [facility] [place] [address] [facility] [address] Phosphorus Inorganic (11/18/2021 8:56 AM CDT) P athologist Signature Phosphorus 2.7 2.5 - 4.5 11/18/2021 DTL (Inorganic), S mg/dL 10:11 AM CDT Specimen Anatomical Collection Method Collection Time Receive d Time (Source) Location / / Volume Laterality Blood (Blood, 11/18/2021 8:56 AM 11/19/19 9:52 Venous) CDT AM CDT Shannan Rand M.D. LAB BLOOD ADD-ON Performing Organization Address City/State/ZIP Code Phon e Number [facility] - [address] [place], [place] [address] [facility] [place] [address] [facility] [address] Magnesium (11/18/2021 8:56 AM CDT) P athologist Signature Magnesium, S 2.1 1.7 - 2.3 11/18/2021 DTL mg/dL 10:11 AM CDT Specimen Anatomical Collection Method Collection Time Receive d Time (Source) Location / / Volume Laterality Blood (Blood, 11/18/2021 8:56 AM 11/19/19 9:52 Venous) CDT AM CDT Shannan Rand M.D. LAB BLOOD ADD-ON Performing Organization Address City/State/ZIP Code Phon e Number [facility] - [address] [place], [place] [address] [facility] [place] [place] [address] [facility] [address] (ABNORMAL) Comprehensive Metabolic Panel (11/18/2021 8:56 [...] 11/18/2021 DTL Black/ mL/min/BSA 12:18 PM CDT Ug[place]an Comment: ----ADDITIONAL INFORMATION---- Estimated GFR calculated using [...] Organization Address City/State/ZIP Code Phon e Number [facility] - [address] [place] [address] [facility] [place] [address] [facility] 200 [facility] (ABNORMAL) CBC with Differential, Blood (11/18/2021 8:56 AM CDT) [facility] Method Time Signature Hemoglobin 9.7 (L) [...] Organization Address City/State/ZIP Code Phon e Number [facility] - [address] [place], [place] [address] [facility] [place] [place] [address] [facility] [address] EEG prolonged [...] Rodriguez M.D. NEUROLOGY ORDERABLES Performing Organization Address [facility] Code Phon e Number MMODAL MMODAL NA [...] Rodriguez M.D. NEUROLOGY ORDERABLES Performing Organization Address [facility]/ZIP Code Phon e Number MMODAL MMODAL NA [...] Schulz M.D. IMG DIAGNOSTIC IMAGING PROCE DURES (ABNORMAL) Comprehensive Metabolic Panel (11/16/2021 7:11 AM [...] 11/16/2021 DTL Black/ mL/min/BSA 10:20 AM CDT Ug[place]an Comment: ----ADDITIONAL INFORMATION---- Estimated GFR calculated using [...] Organization Address City/State/ZIP Code Phon e Number [facility] - [address] [place], [place] [address] [facility] [place] [address] [facility] [address] (ABNORMAL) CBC with Differential, Blood (11/16/2021 7:11 AM CDT) [facility] gist Method Time Signature Hemoglobin 7.7 [...] Organization Address City/State/ZIP Code Phon e Number [facility] - [address] [place] [address] [facility] [place] [address] [facility] 200 [facility] MR Brain without IV Contrast (11/15/2021 1:07 [...] Drug Screen Urine (11/15/2021 11:15 AM CDT) [facility] Method Time Signature Ethanol, Negative NEGATIVE [...] M.S. LAB URINE ORDERABLES Performing Organization Address City/[facility] Phon e Number [facility] - [address] [place], [place] [address] [place], [place] [id number] [place] [address] (ABNORMAL) Ammonia (11/15/2021 6:14 [...] Organization Address City/[facility]/ZIP [facility] Phon e Number [facility] - [address] [place], [place] [address] 05 [place] [address] [facility] [address] [facility] Phosphorus Inorganic (11/15/2021 6:14 AM CDT) P athologist Signature Phosphorus 2.5 2.5 - 4.5 11/15/2021 DTL (Inorganic), S mg/dL 7:16 AM CDT Specimen Anatomical Collection Method Collection Time Receive d Time (Source) Location / / Volume Laterality Blood (Blood, 11/15/2021 6:14 AM 11/16/19 22 7:02 Venous) CDT AM CDT Gerard Andino M.D., M.S. LAB BLOOD ADD-ON Performing Organization Address City/[facility]/ZIP [facility] Phon e Number [facility] - [address] [place], [place] [address] [place] [address] [facility] [address] Magnesium (11/15/2021 6:14 AM CDT) P athologist Signature Magnesium, S 2.1 1.7 - 2.3 11/15/2021 DTL mg/dL 7:16 AM CDT Specimen Anatomical Collection Method Collection Time Receive d Time (Source) Location / / Volume Laterality Blood (Blood, 11/15/2021 6:14 AM 11/16/19 7:02 Venous) CDT AM CDT Gerard Andino M.D., M.S. LAB BLOOD ADD-ON Performing Organization Address City/[facility] Phon e Number [facility] - [address] [place] [address] 05 [facility] [place] [address] Laboratories-[address] (ABNORMAL) Hepatic Function Panel (11/15/2021 6:14 [...] M.S. LAB BLOOD ADD-ON Performing Organization Address City/[facility] Code Phon e Number [facility] - [address] [place], [place] [address] [facility] [place] [address] [facility] 200 [facility] (ABNORMAL) Basic Metabolic Panel (11/15/2021 6:14 AM [...] 11/15/2021 DTL Black/ mL/min/BSA 10:03 AM CDT Ugandan Comment: ----ADDITIONAL INFORMATION---- Estimated GFR calculated using [...] Organization Address City/State/ZIP Code Phon e Number [facility] - [address], [place] [address] [facility] [place] [address] [facility] 200 [facility] (ABNORMAL) CBC without Differential (11/15/2021 6:14 AM CDT) Patholo gist Method Time Signature Hemoglobin 7.8 (L) [...] Blood (Blood, 11/15/2021 6:14 AM 11/16/19 22 6:40 Venous) CDT AM CDT Gerard Andino M.D., M.S. LAB BLOOD ADD-ON Performing Organization Address City/State/ZIP Code Phon e Number [facility] - [address] [place], [place] [address] [facility] [place] [address] Formerly [facility]-[address] Phosphorus Inorganic (11/14/2021 9:00 PM CDT) P athologist Signature Phosphorus 2.6 2.5 - 4.5 11/14/2021 DTL (Inorganic), S mg/dL 10:55 PM CDT Specimen Anatomical Collection Method Collection Time Receive d Time (Source) Location / / Volume Laterality Blood (Blood, 11/14/2021 9:00 PM 11/15/19 9:46 Venous) CDT PM CDT Gerard Andino M.D., M.S. LAB BLOOD ADD-ON Performing Organization Address City/[facility] Code Phon e Number [facility] - [address] 200 [facility] Magnesium (11/14/2021 9:00 PM CDT) P athologist Signature Magnesium, S 1.8 1.7 - 2.3 11/14/2021 DTL mg/dL 10:55 PM CDT Specimen Anatomical Collection Method Collection Time Receive d Time (Source) Location / / Volume Laterality Blood (Blood, 11/14/2021 9:00 PM 11/15/19 9:46 Venous) CDT PM CDT Gerard Andino M.D., M.S. LAB BLOOD ADD-ON Performing Organization Address City/[facility]/ZIP Code Phon e Number [facility] - [address] Potassium (11/14/2021 9:00 PM CDT) P athologist Signature Potassium, S 4.1 3.6 - 5.2 11/14/2021 DTL mmol/L 10:55 PM CDT Specimen Anatomical Collection Method Collection Time Receive d Time (Source) Location / / Volume Laterality Blood (Blood, 11/14/2021 9:00 PM 11/15/19 9:46 Venous) CDT PM CDT Gerard Andino M.D., M.S. LAB BLOOD ADD-ON Performing Organization Address City/[facility]/ZIP Code Phon e Number [facility] - [address] (ABNORMAL) Hepatic Function Panel (11/14/2021 6:56 [...] Organization Address City/State/ZIP Code Phon e Number [facility] - [address] [place], [place] [address] [facility] [place] [address] [facility] [address] [facility] (ABNORMAL) Basic Metabolic Panel (11/14/2021 6:56 AM [...] 11/14/2021 DTL Black/ mL/min/BSA 9:14 AM CDT Ugandan Comment: ----ADDITIONAL INFORMATION---- Estimated GFR calculated using [...] Organization Address City/State/ZIP Code Phon e Number [facility] - [address] [place], [place] [address] [facility] [place] [address] [facility] [address] [facility] (ABNORMAL) CBC without Differential (11/14/2021 6:56 AM CDT) [facility] gist Method Time Signature Hemoglobin 9.1 (L) [...] Organization Address City/State/ZIP Code Phon e Number [facility] - [address] [place] [address] 05 [facility] [place] [address] [facility] 200 [facility] SARS Coronavirus 2, Antigen, Rapid, V Asymptomatic (11/13/2021 9:45 AM CDT) [facility] Method Time Signature SARS CoV-2, Undetected [...] us ing the SARS-CoV-2 Ag Test from [employer], which has received Emergency U se Authorization (EUA) by the U.S. Food and Drug Administration. Fact sheets for this Emergency Use Autho rization (EUA) assay can be found at the following links: For Healthcare Providers: https://www.Snapsort.TaskBeat/assets/images/n ew/pdf/fkn-lio-upux-pplok-fgoerngs-l qhp-ugz-7-ag-test.pdf?v=4 For Patients: https://www.Snapsort.com/assets/images/n ew/pdf/bfn-cchfyjr-kxai-sheet-lumira kn-xkvh-npd-2-cilalra-gcho.pdf?v=5 SARS CoV-2, Antigen, Rapid, Swab, Nasopharynx 10/31 9:54 AM CDT [facility] Source Specimen Anatomical Collection Method Collection Time Receive d Time (Source) Location / / Volume Laterality Varies 11/13/2021 9:45 AM 9:54 (Nasopharynx) CDT AM CDT Gerard Andino M.D., M.S. LAB MICROBIOLOGY - GENERAL O RDERABLES Performing Organization Address City/[facility] Phon e Number [facility] - [address] [place] [address] 05 [place] [address] [facility] 200 [facility] (ABNORMAL) Hepatic Function Panel (11/13/2021 6:19 AM CDT) [facility] Method Time Signature Bilirubin, Total, S 16.8 [...] M.S. LAB BLOOD ADD-ON Performing Organization Address City/State/[facility] Code Phon e Number [facility] - [address] [place], [place] [address] [facility] [place] [address] [facility] 200 [facility] (ABNORMAL) Basic Metabolic Panel (11/13/2021 6:19 AM [...] 11/13/2021 DTL Black/ mL/min/BSA 9:23 AM CDT Ugandan Comment: ----ADDITIONAL INFORMATION---- Estimated GFR calculated using [...] Organization Address City/State/ZIP Code Phon e Number [facility] - [address] [place], [place] [address] [facility] [place] [address] [facility] 200 [facility] (ABNORMAL) CBC without Differential (11/13/2021 6:19 AM CDT) [facility] gist Method Time Signature Hemoglobin 7.9 [...] M.S. LAB BLOOD ADD-ON Performing Organization Address City/State/[facility] Code Phon e Number [facility] - [address] [place], [place] [address] [place] [address] Formerly [facility]-[address] DX Abdomen Portable Anterior Posterior 1 [...] HEAD WITHOUT IV CONTRAST COMPARISON: Compared to [facility] head CT fro 03/21/2021. FINDINGS: [...] HEAD WITHOUT IV CONTRAST COMPARISON: Compared to [facility] head CT fro 03/21/2021. FINDINGS: [...] Rapid, V Symptomatic (11/12/2021 3:44 AM CDT) [facility] [employer] Method Time Signature SARS CoV-2, Detected (A) Undetected 11/12/2021 [facility] PCR, Rapid, V 4:20 AM CDT Comment: ----ADDITIONAL INFORMATION---- This RT-PCR test was performed using the Daniel SARS-CoV-2 and Influenza A/B Reagent assay from [employer], which has received Emergency Use Authori zation(EUA) by the U.S. Food and Drug Administration . Fact sheets for this Emergency Use Autho rization (EUA) assay can be found at the following link s: For Healthcare Providers: https://www.fda.gov/media/927611/downloa d For Patients: https://www.fda.gov/media/150310/downloa d SARS Coronavirus 2, Source, Rapid Swab, Nasopharynx 11/12/2021 3:48 AM CDT [facility] Specimen Anatomical Collection Method Collection Time Receive d Time (Source) Location / / Volume Laterality Varies 11/12/2021 3:44 AM 3:48 (Nasopharynx) CDT AM CDT Rosaura Sevilla M.D., M.P.H. LAB MICROBIOLOGY - GENERA L ORDERABLES Performing Organization Address City/State/ZIP Code Phon e Number [facility] - [address] [place], [place] [address] [place] [address] [facility] [address] Drug Screen Urine (11/12/2021 3:19 AM CDT) [facility] Method Time Signature Ethanol, Negative NEGATIVE [...] M.D. LAB URINE ORDERABLES Performing Organization Address City/State/[facility] Code Phon e Number [facility] - [facility] [address] [place], [place] [address] [facility] [place] [address] [facility] [address] Peripheral Venous Access [...] Prothrombin Time (PT) (11/12/2021 1:54 AM CDT) [facility] gist Method Time Signature Prothrombin 37.4 [...] Organization Address City/State/ZIP Code Phon e Number [facility] - [address] [place], [place] [address] 05 [place] [address] [facility] [address] (ABNORMAL) APTT (Activated Partial [...] Organization Address City/[facility]/ZIP [facility] Phon e Number [facility] - [address] [place], [place] [address] [facility] [place] [place] [address] [facility] [address] Ethanol Level, Serum (11/12/2021 1:54 AM [...] HEALTH CARE FACILITY Code Phon e Number [facility] - [address] [place], [place] [address] [facility] [place] [address] [facility] [address] S-TSH (Thyroid-Stimulating Hormone - Sensitive) (11/12/2021 1:54 AM CDT) athologist Signature TSH, Sensitive 3.3 0.3 - 4.2 11/12/2021 DTL mIU/L 3:15 AM CDT Specimen Anatomical Collection Method Collection Time Receive d Time (Source) Location / / Volume Laterality Blood (Blood, 11/12/2021 1:54 AM 11/13/19 22 2:40 Venous) CDT AM CDT Authorizing Provider Result Woodrow Oswald M.D. LAB BLOOD ADD-ON Performing Organization Address City/State/ZIP Code Phon e Number [facility] - [address] [place], [place] [address] [facility] [place] [address] [facility] [address] (ABNORMAL) Basic Metabolic Panel (11/12/2021 1:54 AM CDT) P athologist Signature Potassium, P [...] CDT eGFR-Black/Afri >90 >=60 11/12/2021 DTL can Ugandan mL/min/BSA 3:01 AM CDT Comment: ----ADDITIONAL INFORMATION---- [...] Organization Address City/State/ZIP Code Phon e Number [facility] - [address] [place], [place] [address] [facility] [place] [address] [facility] [address] [place] [address] [facility] [address] (ABNORMAL) Hepatic Function [...] 11/13/19 22 2:40 Venous) CDT AM CDT Authorizing Provider Result Woodrow Oswald M.D. LAB BLOOD ADD-ON Performing Organization Address City/State/ZIP Code Phon e Number [facility] - [address] [place] [address] 05 [facility] [place] [address] Laboratories-[address] hCG (Human Chorionic Gonadotropin), Quantitative, (11/12/2021 1:54 AM CDT) athologist Signature HCG, 0.5 <5 IU/L 11/12/2021 ST[facility] Quantitative, 2:17 AM CDT , P Specimen Anatomical Collection Method Collection Time Receive d Time (Source) Location / / Volume Laterality Blood (Blood, 11/12/2021 1:54 AM 11/13/19 22 1:59 Venous) CDT AM CDT Authorizing Provider Result Woodrow Oswald M.D. LAB BLOOD ADD-ON Performing Organization Address City/State/ZIP Code Phon e Number [facility] - [address] [place], [place] [address] [facility] [place] [address] [facility] [address] [facility] (ABNORMAL) CBC with Differential, Blood (11/12/2021 1:54 AM CDT) [facility] Method Time Signature Hemoglobin 8.7 (L) 11.6 [...] Organization Address City/[facility]/ZIP Code Phon e Number [facility] - [address] [place], [place] [address] [facility] [place] [address] [facility] [address] [facility] [place] [address] [facility] [address] (ABNORMAL) Ammonia (11/12/2021 1:54 AM CDT) P athologist Signature Ammonia, P 38 (H) <=30 11/12/2021 DT mcmol/L 2:52 AM CDT Specimen Anatomical Collection Method Collection Time Receive d Time (Source) Location / / Volume Laterality Blood (Blood, 11/12/2021 1:54 AM 11/13/19 2:09 Venous) CDT AM CDT Titi Oswald M.D. LAB BLOOD NON ADD-ON Performing Organization Address City/[facility]/ZIP Code Phon e Number [facility] - [address] [place], [place] [address] [facility] [place] [address] [facility] [address] [facility] Lactate, POCT (11/12/2021 1:54 AM CDT) Analysis Performed At Patho logist Time Signature Lactate, POCT Collected DEFAULT 11/12/2021 SMLX 1:54 AM CDT Specimen Anatomical Collection Method Collection Time Receive d Time (Source) Location / / Volume Laterality Blood (Blood, 11/12/2021 1:54 AM 11/13/19 1:54 Venous) CDT AM CDT Authorizing Provider Result Woodrow Oswald M.D. LAB POCT ORDERABLES - DEVICE Performing Organization Address City/[facility]/ZIP Code Phon e Number [facility] - [address] [place], [place] [address] [facility] [place] [place] [address] [facility] [address] Venous Blood [...] POCT ORDERABLES - DEVICE Performing Organization Address City/[facility]/ZIP [facility] Phon e Number [facility] - [address] [place], [place] [address] [facility] [place] [place] [address] [facility] 200 [facility] Lactate, POCT (11/12/2021 1:52 AM CDT) athologist [...] DEVICE Performing Organization Address [facility] Phon e Number POC [facility] [address] [place] [address] [facility] [place] [address] [facility] 200 [facility] (ABNORMAL) Venous Blood Gas and Electrolytes CG8+, [...] City/State/ZIP Code Phon e Number POC [facility] [address] [place], [place] [address] LABS [facility] [place] [address] [facility] [address] [place] [address] (ABNORMAL) CRP (C-Reactive Protein) (11/11/2021 4:28 AM [...] City/State/ZIP Code Phon e Number [facility] - [address] [place] [address] 05 [place] [address] Formerly [facility] [address] [facility] documented in this encounter Visit Diagnoses [...] 100 mL/hr 50 g, intravenous, Once, On 11/24/21 at 1400, For 1 dose, If no [...] 2358 (Given - Provider: Jo Ann Stevens RSumaN.) 0926 (Given - Provider: Deja Langford, R.N.)1324 (Not Given - Provider: Deja Langford R.N. [...] mg 1014 (Given - Provider: [place] vela REric.) 0811 (Given - Provider: Deja Langford, R.N.) 0924 (Given - Provider: Deja Langford, R.N.) 1 mg, oral, Daily, First dose (after last modification) on M on 11/24/21 at 1015 furosemide tablet 40 mg (LASIX) 1015 (Given - Provider: Aye Toribio R.N.) 0811 (Given - Provider: Deja Langford, R.N.) 0924 (Given - Provider: Deja Langford R.N.) 40 mg, oral, Daily, First dose (after last modificatio n) on Wed11/24/21 at 1015 heparin (porcine) injection 5,000 Units 0531 (Not Give n - Provider: Andrew De La TorreNSuma - Reason: Patient/family refused)1503 (Given - Provider: [place] Toribio R.N.)2245 (Not Given - Provider: Jo Ann Stevens R.Sera. - Reason: Patient/family refused) 0549 (Given - Provider: Jo Ann hanley, R.N.)1302 (Given - Provider: Deja Langford R.N.)2123 (Given - Provider: Amy Zaragoza R.N.) 0609 (Given - Provider: Jo Ann hanley, R.N.) 5,000 Units, subcutaneous, Every 8 hours scheduled, First dose on Wed11/18/21 at 2200 HYDROmorphone (PF) injection 0.2 mg (DILAUDID) (COMPLETED) 0549 (Given - Provider: Jo Ann Stevens RGabby) 0.2 mg, intravenous, Once, On Wed11/25/21 at 0545, For 1 dose HYDROmorphone tablet 1 mg (DILAUDID) (COMPLETED) 0811 (Given - Provider: Deja Langford R.N.) 1 mg, oral, Once, On Wed11/25/21 at 0800, For 1 dose lactulose solution 10 g (CHRONULAC) (CANCELED) 1013 (G iven - Provider: [place] Toribio RGabby) 10 g, gastric tube, 3 times daily, First dose (after last modification) on Wed11/18/21 at 2100 lactulose solution 10 g (CHRONULAC) 1506 (Not Given - Provider: [place] Toribio R.N. - Reason: Other - Comment: 6 bm's)2037 (Not Given - Provider: J oAnn Stevens R.N. - Reason: Contraindicated) 0812 (Not Given - Provider: Deja E Probert, R.N. - Reason: Contraindicated - Comment: bm goal met)1302 (Given - Provider: Deja Langford R.N.)2123 (Given - Provider: Amy Zaragoza R.N.) 0924 (Given - Provider: Deja Langford R.N.) 10 g, oral, 3 times daily, First dose (a fter last modification) on Wed11/24/21 at 1400 lidocaine 5 % 1 patch (LIDODERM) 2358 (M edication Applied - Provider: Jo Ann Stevens R.N.) 1157 (Medication Removed - Provider: Anat Langford R.NSuma) 1 patch, transdermal, Administer over 12 Hours, Daily at bedtime, First dose on Wed11/25/21 at 2330, Remove after 12 hours. multivitamin/mineral- tablet 1 tablet 1016 (Gi ekaterina - Provider: [place] Toribio R.N.) 08 (Given - Provider: Deja Langford R.N.) 0924 (G iven - Provider: Deja Langford R.NSuma) 1 tablet, oral, Daily, First dose (after last modification) on Wed11/24/[address] tablet 40 mg (PROTONIX) 0550 (Not Given - Provider: Jo Ann Stevens REric. - Reason: Other) 0609 (Given - Provider: Jo Ann hanley, R.NSuma) 40 mg, oral, Daily before breakfast, Fir st dose on Wed11/25/21 at 0700, Swallow whole. Do NOT crush, chew, or split tablet. rifAXIMin tablet 550 mg (XIFAXAN) 1020 (Given - Provid er: [place] Toribio R.N.)2038 (Given - Provider: Jo Ann Stevens R.N.) 0811 (Given - Provider: Deja Langford R.N.)212 (Given - Provider: Amy Zaragoza R.N.) 0924 (Given - Provider: Deja Langford R.NSuma) 550 mg, oral, 2 times daily, First dose on Wed11/24/21 at 1015, Indications: encephalopathy sodium chloride (PF) 0.9 % injection 1-100 mL (COMPLETED) 1021 (Given - Provider: Perri Mcintyre RSumaNSuma) 1-100 mL, intravenous, Once, On 11/25 at 1030, For 1 dose, Imaging Protocol Orders spironolactone tablet 100 mg (ALDACTONE) 1201 (Given - Provider: [place] Toribio RSumaN.) 0811 (Not Given - Provider: Deja son R.N. - Reason: See Provider Order - Comment: held per provider due to hypotension) 0924 (Given - Provider: Deja Shaikhrt, R.N.) 100 mg, oral, Daily, First dose (after l ast modification) on Wed11/24/21 at 1115 thiamine tablet 100 mg (VITAMIN B1) 1016 (Given - Prov ider: [place] Toribio R.N.) 0811 (Given - Provider: Deja Langford, R.N.) 0924 (Tristan iven - Provider: Deja Shaikhrt, R.N.) 100 mg, oral, Daily, First dose (after l ast modification) on Wed11/24/21 at 1015 vitamin A capsule 3,000 mcg 1201 (Given - Provider: [place] trujillo R.N.) 0950 (Given - Provider: Deaj Shaikhrt, R.N.) 3,000 mcg, oral, 3 times weekly [...] (Tristan iven - Provider: Deja Langford, R.N.) 220 mg, oral, Daily with breakfast, Firs t dose (after last modification) on Wed11/24/21 at 1015, For 15 doses, Doses listed in zinc sulfate. Each 220 mg of zinc sulfate contains 50 mg of elemental zinc. PRN Medication Order 11/24/2021 11/25/2021 11/26/2021 iohexoL 350 mg iodine/mL solution 1-200 mL (OMNIPAQUE) (COMP LETED) 1022 (Given - Provider: Perri Mcintyre R.N.) 1-200 mL, intravenous, Once in imaging, [...] Pending 11/12/2021 11/12/2021 11/12/2021 4:20 AM CDT [id number]: Patients who are NOT sev erely immunocompromised: Asymptomatic - At least 10 days have passed since the date of the first positive PCR test 11/12/2021 11/12/2021 11/13/2021 3:19 PM CDT and Patient has remained asymptomatic throughout their infection Assessment Noted Time PHQ-9 Depression Total Score: 10 10/06/2021 5:00 PM CD T documented as of this encounter Care Teams 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
--- OUTSIDE RECORDS SUMMARY | 2022-02-12 20:27 | XMS_ITS | Encounter Summary ---
:1990 Author Organization [facility] Address [address] [place] [address] Care Team Providers Name Role Phone Elsewhere, Pcp Primary Care Provider Unavailable Encounter Details Date Type Department Care Team Description 11/18/2021 Clinical Communication [facility] PRE/POS T Alina Carranza R, [address] [place] [address] [phone] Social History Tobacco Use Types Packs/Day Years [...] you attend anglican or Patient refused 2021 scientology services? Do [...] at Date Recorded Female 04/12/2021 7:39 PM [employer] documented as of this encounter Miscellaneous Notes Telephone Encounter - Alina Carranza R.N. - 11/18/2021 8:[address] Jerome Catia is scheduled for an EGD with you on 11/24/21. She tested positive for covid on 11/09/21. Also, she is currently an inpatient in [place]. If you have concerns, please notify patient andscheduling. Thank you. documented in this encounter Plan of Treatment Upcoming Encounters Date Type Specialty Care Team Description Telemedicine Transplant 2 Appointment Radiology Matthew Jerome 2 YTyrell M.D. [address] [place] [address] Appointment Gastroenterology and Adrianne, 2 Hepatology Yue Burciaga M.D. [address] [place] [address] Virtual Visit Transplant Matthew Jerome 2 Tyrell Rodriguez M.D. [address] [place] [phone] Office Visit Gastroenterology and Matthew Jerome 2 Hepatology Tyrell Rodriguez M.D. [address] [place] [phone] Appointment Radiology LuisMatthew abdul 2 Tyrell Rodriguez M.D. [address] [place] [phone] Hospital Gastroenterology and Matthew Jerome Cirrhos is Alcoholic (HCC) 2 Encounter Hepatology Tyrell Rodriguez M.D. [address] [place] [phone] Anesthesia Event Gastroenterology and Rl, 2 Hepatology Ervin Burgos M.D. [address] [place] [phone] Surgery Gastroenterology and Matthew Jerome ESOPHAG OGASTRODUODENOSCOPY 2 Hepatology Tyrell Rodriguez M.D. [address] [place] [phone] Scheduled Procedures Name Priority Associated Diagnoses Date/Time ESOPHAGOGASTRODUODENOSCOPY Cirrhosis Alc oholic (HCC) 03/20/2022 8:45 AM [employer] Hypertension Portal (HCC) documented as of this encounter Visit Diagnoses Not on filedocumented in this encounter Additional Health Concerns Assessment Noted Time PHQ-9 Depression Total Score: 10 10/06/2021 5:00 PM CD T documented as of this encounter Care Teams Acetylene Gas Compressor Relationship Specialty Start Date End Date Elsewhere, Pcp PCP - General Family Medicine 03/10/20 11/30/21 [facility] 08/25/21 Ervin Schroeder MD Referring Provider Family Medicine 03/24/[address] [place] [id number] documented as of this encounter
--- OUTSIDE RECORDS SUMMARY | 2022-02-12 20:27 | XMS_ITS | Encounter Summary ---
:1990 Author Organization [facility] Address [address] [place] [address] Care Team Providers Name Role Phone Elsewhere, Pcp Primary Care Provider Unavailable Reason for Referral Transplant (Routine) - Closed Specialty Diagnoses / Procedures Referred By Contact Refer red To Contact Transplant Surgery / Joel Tan [facility] Transplant Shala, M.S.W. [address] [place] [address] Referral ID Status Reason Start Date Expiration Date Visits Requ ested Visits Authorized [id number] Closed 10/29/2021 10/29/2022 1 1 Scheduling Instructions Please schedule a 60 min visit for me to meet with the patient when she returns in the future for pre-transplant follow up. Thank you. Encounter Details Date Type Department Care Team Description 10/29/2021 Orders Only Department of Social Work Rajiv Tan, in [facility] Shala, M.S.W. 200 [facility] [address] [place] [address] [place] [address] [phone] (Wo rk) Social History Tobacco Use Types [...] you attend yazidism or Patient refused 2021 quaker services? 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 [address] [place] [phone] Virtual Visit Transplant Matthew Jerome 2 YTyrell, Lilian [address] [place] [phone] Office Visit Gastroenterology and Matthew Jerome 2 Hepatology Tyrell Rodriguez M.D. [address] [place] [phone] Appointment Radiology LuisNew abdular 2 YJoshuaBSumaBLilian Bedolla [address] [place] [phone] [facility] Gastroenterology and Matthew Jerome Cirrhos is Alcoholic (HCC) 2 Encounter Hepatology Joshua RodriguezBSumaBLilian Bedolla [address] [place] [phone] Anesthesia Event Gastroenterology and Rl, 2 Hepatology Ervin Burgos M.D. 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 Hypertension Portal (HCC) Scheduled Referrals Name Type Priority Associated Order Schedule Diagnoses Transplant Liver Outpatient Referral Routine Expe cted: office visit 01/26/2022 (clinic) (Approximate), Expires: 01/29/2023 documented as of this encounter Visit Diagnoses Not on filedocumented in this encounter Additional Health Concerns Infection Onset Date Last Indicated Resolved Time COVID19 Pending 11/12/2021 11/12/2021 11/12/2021 4:20 AM CDT [id number]: Patients who are NOT sev erely immunocompromised: Asymptomatic - At least 10 days have passed since the date of the first positive PCR test 11/12/2021 11/12/2021 11/13/2021 3:19 PM CDT and Patient has remained asymptomatic throughout their infection Assessment Noted Time PHQ-9 Depression Total Score: 10 10/06/2021 5:00 PM CD T documented as of this encounter Care Teams Contractor General Engineering Relationship Specialty Start Date End Date Elsewhere, Pcp PCP - General Family Medicine 03/10/20 11/30/21 [facility] [place] lab 08/25/21 Ervin Schroeder MD Referring Provider Family Medicine 03/24/[address] [place] [address] documented as of this encounter
--- OUTSIDE RECORDS SUMMARY | 2022-02-12 20:27 | XMS_ITS | Encounter Summary ---
:1990 Author Organization [facility] Address [address] [place] [address] Care Team Providers Name Role Phone Elsewhere, Pcp Primary Care Provider Unavailable Reason for Visit Reason Comments Covid Positive Encounter Details Date Type Department Care Team Description 11/12/2021 Clinical Department of Matthew Jerome Positive Communication Gastroenterology in , [facility] 1025 [facility] 10[address] [place] [address] [place], [place] [phone] Social History Tobacco Use Types Packs/Day [...] you attend anabaptism or Patient refused 2021 mormon services? Do [...] or the highest technical, or vocational p [facility] degree you have received? 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 [facility] guidelines recommend that this appointment be [...] Radiology LuisMatthew abdul 2 Tyrell Rodriguez M.D. [address] [place] [phone] Appointment Gastroenterology demian Silver 2 Hepatology Yue Burciaga M.D. [address] [place] [phone] Virtual Visit Transplant Matthew Jerome 2 YTyrell M.D. [address] [place] [phone] Office Visit Gastroenterology and Matthew Jerome 2 Hepatology Tyrell Rodriguez M.D. [address] [place] [phone] Appointment Radiology Matthew Jerome 2 YTyrell M.D. [address] [place] [phone] Hospital Gastroenterology and Matthew Jerome Cirrhos is Alcoholic (HCC) 2 Encounter Hepatology Tyrell Rodriguez M.D. [address] [place] [phone] Anesthesia Event Gastroenterology demian Shine, 2 Hepatology Ervin Burgos M.D. [address] [place] [phone] Surgery Gastroenterology and Mousa, Matthew ESOPHAG OGASTRODUODENOSCOPY 2 Hepatology Tyrell Rodriguez M.D. 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 Hypertension Portal (HCC) documented as of this encounter Visit Diagnoses Not on filedocumented in this encounter Additional Health Concerns Infection Onset Date Last Indicated Resolved Time COVID19 Pending 11/12/2021 11/12/2021 11/12/2021 4:20 AM CDT [id number]: Patients who are NOT sev erely immunocompromised: Asymptomatic - At least 10 days have passed since the date of the first positive PCR test 11/12/2021 11/12/2021 11/13/2021 3:19 PM CDT and Patient has remained asymptomatic throughout their infection Assessment Noted Time PHQ-9 Depression Total Score: 10 10/06/2021 5:00 PM CD T documented as of this encounter Care Teams Piece Marker Small Arms Relationship Specialty Start Date End Date Elsewhere, Pcp PCP - General Family Medicine 03/10/20 11/30/21 [facility] [place] lab 08/25/21 Ervin Schroeder MD Referring Provider Family Medicine 03/24/[address] [place] [address] documented as of this encounter
--- OUTSIDE RECORDS SUMMARY | 2022-02-12 20:27 | XMS_ITS | Encounter Summary ---
:1990 Author Organization [facility] Address [address] [place] [address] Care Team Providers Name Role Phone Elsewhere, Pcp Primary Care Provider Unavailable Encounter Details Date Type Department Care Team Description 10/31/2021 Orders Only Department of Mousa, Matthew Y, Cirrhosis Al coholic ([facility]) (Primary Dx); Gastroenterology in Joshua Santillan. Defect Coagulation (HCC) [place], [place] 1025 [facility] 1025 [place] [phone] Social History Tobacco Use Types Packs/Day Years [...] you attend taoism or Patient refused 2021 sabianist services? Do you belong to any clubs or No 02/10/2022 organizations such as taoism groups, unions, fraBIO-PATH HOLDINGS or athletic groups, or school groups? 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 [address] [place] [phone] Virtual Visit Transplant Matthew Jerome 2 YKishore.Lilian Salas [address] [place] [phone] Office Visit Gastroenterology and Matthew Jerome 2 Hepatology Tyrell Rodriguez M.D. [address] [place] [phone] Appointment Radiology Matthew Jerome 2 YTyrell M.D. [address] [place] [phone] Hospital Gastroenterology and Queenie Matthew Cirrhos is Alcoholic (HCC) 2 Encounter Hepatology Tyrell Rodriguez M.D. [address] [place] [phone] Anesthesia Event Gastroenterology and Rl, 2 Hepatology Ervin Burgos M.D. [address] [place] [phone] Surgery Gastroenterology and Queenie Matthew ESOPHAG OGASTRODUODENOSCOPY 2 Hepatology Tyrell Rodriguez M.D. 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 Hypertension Portal (HCC) documented as of this encounter Visit Diagnoses Diagnosis Cirrhosis Alcoholic (HCC) - Primary Defect Coagulation (HCC) Cirrhosis Alcoholic (HCC) Cirrhosis Alcoholic (HCC) Hypertension Portal (HCC) documented in this encounter Additional Health Concerns Assessment Noted Time PHQ-9 Depression Total Score: 10 10/06/2021 5:00 PM CD T documented as of this encounter Care Teams Generation Engineer Relationship Specialty Start Date End Date Elsewhere, Pcp PCP - General Family Medicine 03/10/20 11/30/21 [facility] 08/25/21 Ervin Schroeder MD Referring Provider Family Medicine 03/24/[address] [place] [address] documented as of this encounter
--- OUTSIDE RECORDS SUMMARY | 2022-02-12 20:27 | XMS_ITS | Encounter Summary ---
:1990 Author Organization [facility] Address [address] [place] [address] Care Team Providers Name Role Phone Elsewhere, Pcp Primary Care Provider Unavailable Reason for Visit Reason Comments External Lab Entry 10/25/2021 Encounter Details Date Type Department Care Team Description 10/28/2021 Clinical Ramirez Nguyen Transplant, Forestry Biology Specialist al Lab Entry Communication Center for Coordinator, (10/25/2021/) Transplantation and R.N. Clinical Regeneration in [facility] cota [address] [place] [phone] Social History Tobacco Use Types Packs/Day Years [...] you attend christian or Patient refused 2021 restoration services? Do [...] or the highest technical, or vocational p [facility] degree you have received? 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 *All labs are now found in [employer] - Lab - Flowsheets. For further review of labs, please review there or under Synopsis* documented in this encounter Plan of Treatment Upcoming Encounters Date Type Specialty Care Team Description Telemedicine Transplant 2 Appointment Radiology Matthew Jerome 2 YVikBLilian Bedolla [address] [place] [phone] Appointment Gastroenterology and Adrianne, 2 Hepatology Yue Burciaga M.D. [address] [place] [phone] Virtual Visit Transplant Matthew Jerome 2 YVikBLilian Bedolla [address] [place] [phone] Office Visit Gastroenterology and Matthew Jerome 2 Hepatology Vik RodriguezBLilian Bedolla [address] [place] [phone] Appointment Radiology Matthew Jerome 2 YTyrell M.D. [address] [place] [address] [phone] Hospital G[facility], Matthew Cirrhos is Alcoholic (HCC) 2 Encounter Hepatology Tyrell Rodriguez M.D. [address] [place] [address] [phone] Anesthesia Event Gastroenterology and Rl, 2 Hepatology Ervin Burgos M.D. [address] [place] [address] [phone] Surgery Gastroenterology and [facility], Matthew ESOPHAG OGASTRODUODENOSCOPY 2 Hepatology Tyrell Rodriguez M.D. 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
--- OUTSIDE RECORDS SUMMARY | 2022-02-12 20:27 | XMS_ITS | Encounter Summary ---
:1990 Author Organization [facility] Address [address] [place] [address] Care Team Providers Name Role Phone Elsewhere, Pcp Primary Care Provider Unavailable Reason for Visit Reason Comments Nicotine Dependence Outpatient (Routine) - Closed Specialty Diagnoses / Procedures Referred By Contact Refer red To Contact Nicotine Dependence Jessy Crain M.A., C.T.T.S. [address] [place] [address] Referral ID Status Reason Start Date Expiration Date Visits Requ ested Visits Authorized [id number] Closed 10/01/2021 10/01/2022 1 1 Encounter Details Date Type Department Care Team Description 10/27/2021 Telemedicine Department of Yehuda Crain Dep endence Nicotine Dependence, Jessy Gannon M.A., Dylan arelars (Primary [facility], in C.T.T.S. Dx) [place], [place] [address] [facility] [address] [place] [phone] Social History Tobacco Use Types Packs/Day Years [...] you attend congregational or Patient refused 2021 yazidi services? 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 - 10/27/2021 9:00 AM CDT Follow-up visit conducted via real-time audio/video technology by Jessy Crain M.A., C.T.T.S. in [employer], [place] at [facility] to the patient at home. OBJECTIVE [...] Appointment Radiology Matthew Jerome 2 YVikBGraeme, Lilian [address] [place] [phone] Appointment Gastroenterology and Adrianne, 2 Hepatology Yue Burciaga M.D. [address] [place] [phone] Virtual Visit Transplant Matthew Jerome 2 YTyrell M.D. [address] [place] [address] [phone] Office Visit Gastroenterology and [facility] 2 Hepatology Tyrell Rodriguez M.D. [address] [place] [phone] Appointment Radiology [facility] Matthew 2 Tyrell Rodriguez M.D. [address] [place] [phone] [facility] Gastroenterology and [facility] Cirrhos is Alcoholic (HCC) 2 Encounter Hepatology Tyrell Rodriguez M.D. [address] [place] [phone] Anesthesia Event Gastroenterology and Rl, 2 Hepatology Ervin Burgos M.D. [address] [place] [address] [phone] Surgery Gastroenterology and [facility] ESOPHAG OGASTRODUODENOSCOPY 2 Hepatology Tyrell Rodriguez M.D. [address] [place] [phone] Scheduled Procedures Name Priority Associated Diagnoses Date/Time ESOPHAGOGASTRODUODENOSCOPY Cirrhosis Alc oholic (HCC) 03/20/2022 8:45 AM ASSEMBLY LEAD PERSON Hypertension Portal (HCC) documented as of this encounter Visit Diagnoses Diagnosis Nicotine Dependence Cigarettes - Primary Cirrhosis Alcoholic (HCC) Cirrhosis Alcoholic (HCC) Hypertension Portal (HCC) documented in this encounter Additional Health Concerns Assessment Noted Time PHQ-9 Depression Total Score: 10 10/06/2021 5:00 PM CD T documented as of this encounter Care Teams Director Of Sustainable Design Relationship Specialty Start Date End Date Elsewhere, Pcp PCP - General Family Medicine 03/10/20 11/30/21 [facility]- [place] lab 08/25/21 Ervin Schroeder MD Referring Provider Family Medicine 03/24/[address] [place] [address] documented as of this encounter
--- OUTSIDE RECORDS SUMMARY | 2022-02-12 20:27 | XMS_ITS | Encounter Summary ---
:1990 Author Organization [facility] Address [address] [place] [address] Care Team Providers Name Role Phone Elsewhere, Pcp Primary Care Provider Unavailable Reason for Visit Reason Comments Follow up on caregiver plan Encounter Details Date Type Department Care Team Description 10/17/2021 Clinical Ramirez Santana, Follow up on Communication Center for Joel Gannon, caregiver plan Transplantation and L.I.C.S.W., Clinical Regeneration M.S.W. in [place], [facility] [address] [place], [place] [address] [facility] [address] [place], [place] [phone] (Work) [phone] Social History Tobacco Use Types Packs/Day Years [...] you attend orthodoxy or Patient refused 2021 congregational services? Do you belong to any clubs or No 02/10/2022 organizations such as orthodoxy groups, unions, fraUniphore or athletic groups, or school groups? 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 ??in [place] [facility] (Pain Rehabilitation), 10/06/2021: - virtual [...] called the patient this afternoon (cell phone: [phone]) to attempt again follow up on her [...] to be vetted by Transplant Social Work. Sahla Shields, M.S.W. 10/17/21 documented in this encounter Plan of Treatment Upcoming Encounters Date Type Specialty Care Team Description Telemedicine Transplant 2 Appointment Radiology LuisNew abdular 2 Tyrell Rodriguez M.D. [address] [place] [address] [phone] Appointment Gastroenterology and Adrianne, 2 Hepatology Yue Burciaga M.D. [address] [place] [phone] Virtual Visit Transplant LuisMatthew abdul 2 Tyrell Rodriguez M.D. [address] [place] [phone] Office Visit Gastroenterology and LuisMatthew abdul 2 Hepatology Tyrell Rodriguez M.D. [address] [place] [address] [phone] Appointment Radiology LuisNew abdular 2 YTyrell M.D. [address] [place] [address] [phone] Hospital Gastroenterology and LuisMatthew abdul Cirrhos is Alcoholic (HCC) 2 Encounter Hepatology Tyrell Rodriguez M.D. [address] [place] [address] [phone] Anesthesia Event Gastroenterology and Rl, 2 Hepatology Ervin Burgos M.D. [address] [place] [phone] Surgery Gastroenterology and Mousa, Matthew ESOPHAG OGASTRODUODENOSCOPY 2 Hepatology Tyrell Rodriguez M.D. [address] [place] [address] [phone] Scheduled Procedures Name Priority Associated Diagnoses Date/Time ESOPHAGOGASTRODUODENOSCOPY Cirrhosis Alc oholic (HCC) 03/20/2022 8:45 AM DIRECTOR OF INSTRUCTION Hypertension Portal (HCC) documented as of this encounter Visit Diagnoses Not on filedocumented in this encounter Additional Health Concerns Assessment Noted Time PHQ-9 Depression Total Score: 10 10/06/2021 5:00 PM CD T documented as of this encounter Care Teams Lacquer Polisher Relationship Specialty Start Date End Date Elsewhere, Pcp PCP - General Family Medicine 03/10/20 11/30/21 [facility] [place] lab 08/25/21 Ervin Schroeder MD Referring Provider Family Medicine 03/24/[address] [place] [address] documented as of this encounter
--- OUTSIDE RECORDS SUMMARY | 2022-02-12 20:27 | XMS_ITS | Encounter Summary ---
:1990 Author Organization [facility] Address [address] [place] [address] Care Team Providers Name Role Phone Elsewhere, Pcp Primary Care Provider Unavailable Encounter Details Date Type Department Care Team Description 11/04/2021 Clinical Communication Department of Symone Beebe Gastroenterology in [address] [place] [phone] Social History Tobacco Use Types Packs/Day Years [...] attend roman catholic or Patient refused 2021 amish services? 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 [address] [place] [phone] Virtual Visit Transplant Matthew Jerome 2 Joshua RodriguezBSumaBLilian Bedolla [address] [place] [phone] Office Visit Gastroenterology and Matthew Jerome 2 Hepatology Tyrell Rodriguez M.D. [address] [place] [phone] Appointment Radiology Matthew Jerome 2 Joshua RodriguezB.BLilian Bedolla [address] [place] [phone] Hospital Gastroenterology and Queenie Matthew Cirrhos is Alcoholic (HCC) 2 Encounter Hepatology Johsua RodriguezBSumaBLilian Bedolla [address] [place] [phone] Anesthesia Event Gastroenterology and Rl, 2 Hepatology Ervin Burgos M.D. [address] [place] [address] [phone] Surgery Gastroenterology and Matthew Jerome ESOPHAG OGASTRODUODENOSCOPY 2 Hepatology Joshua RodriguezB.BLilian Bedolla [address] [place] [phone] Scheduled Procedures Name Priority Associated Diagnoses Date/Time ESOPHAGOGASTRODUODENOSCOPY Cirrhosis Alc oholic (HCC) 03/20/2022 8:45 AM CLINICAL SERVICES SPECIALIST Hypertension Portal (HCC) documented as of this encounter Visit Diagnoses Not on filedocumented in this encounter Additional Health Concerns Assessment Noted Time PHQ-9 Depression Total Score: 10 10/06/2021 5:00 PM CD T documented as of this encounter Care Teams Geothermal Operations Manager Relationship Specialty Start Date End Date Elsewhere, Pcp PCP - General Family Medicine 03/10/20 11/30/21 [facility] 08/25/21 Ervin Schroeder MD Referring Provider Family Medicine 03/24/[address] [place] [phone] documented as of this encounter
--- OUTSIDE RECORDS SUMMARY | 2022-02-12 20:27 | XMS_ITS | Encounter Summary ---
:1990 Author Organization [facility] Address [address] [place] [address] Care Team Providers Name Role Phone Elsewhere, Pcp Primary Care Provider Unavailable Reason for Visit Auth/Cert Specialty Diagnoses / Procedures Referred By Contact Refer red To Contact Diagnoses Hepatic Encephalopathy Without Coma (HCC) hepatic encephalopathy Procedures DIR Referral ID Status Reason Start Date Expiration Date Visits Requ ested Visits Authorized [id number] 1 1 Encounter Details Date Type Department Care Team Description 11/09/2021 - [facility] Ekta Rubi M.D., M.S. [address] [place] [phone] Hepatic 11/11[facility]21 [facility] Jody Aguilar M.B., B.Chir. [address] [place] [phone] Encephalopathy [facility], Without Coma ( HCC) [facility] (Primary Dx) Building, Sixth Floor [address] [place] [phone] Social History Tobacco Use Types Packs/Day [...] you attend mormonism or Patient refused 2021 pentecostal services? 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 TEST RESULTS PENDING AT DISCHARGE Pending Labs Order Current Status [facility] Result Collected (11/11/21 0952) Bacterial Culture, [...] sent through Care Everywhere.Zinc Sulfate (By mouth) (Turkmen)documented in this encounter Medications at Time of [...] COVID therapies indicated. Evon Rodriguez Pharm.D., R.Ph. [phone] documented in this encounter H&P Notes Jody [...] [facility]ST Gastroenterology A Admission Note REFERRING FACILITY [facility] SUBJECTIVE CHIEF COMPLAINT Altered mental status, [...] seen and discussed with RST Gastroenterology A Lidar Technician, Jo Ann Abbasi M.D.. Please see the supervisory note for further details. Please contact the primary service pager - [phone] with any questions. documented in this encounter [...] Radiology LuisNew abdular 2 Tyrell Rodriguez M.D. [address] [place] [address] [phone] Appointment Gastroenterology demian Silver, 2 Hepatology Yue Burciaga M.D. [address] [place] [phone] Virtual Visit Transplant LuisMatthew abdul 2 YTyrell M.D. [address] [place] [address] [phone] Office Visit Gastroenterology and LuisMatthew abdul 2 Hepatology Tyrell Rodriguez M.D. [address] [place] [address] [phone] Appointment Radiology LuisMatthew abdul 2 YTyrell M.D. [address] [place] [phone] Hospital Gastroenterology and Matthew Jerome Cirrhos is Alcoholic (HCC) 2 Encounter Hepatology Tyrell Rodriguez M.D. [address] [place] [address] [phone] Anesthesia Event Gastroenterology and Rl, 2 Hepatology Ervin Burgos M.D. [address] [place] [address] [phone] Surgery Gastroenterology and Mousa, Matthew ESOPHAG OGASTRODUODENOSCOPY 2 Hepatology Tyrell Rodriguez M.D. [address] [place] [phone] Pending Results Name Type Priority Associated Diagnoses Date/Ti me Prepare Red Blood Blood Bank Routine 11/10/2021 4:37 AM CDT Cells, 1 Units Prepare Red Blood Blood Bank Routine 11/10/2021 4:37 AM CDT Cells, 1 Units Scheduled Procedures Name Priority Associated Diagnoses Date/Time ESOPHAGOGASTRODUODENOSCOPY Cirrhosis Alc oholic (HCC) 03/20/2022 8:45 AM BLISTER PACKAGING MACHINE OPERATOR Hypertension Portal (HCC) documented as [...] Results SPSMA Result (11/11/2021 9:52 AM CDT) [facility] Method Time Signature Neutrophilic Segs 71 [...] M.D. LAB BLOOD ADD-ON Performing Organization Address [facility] Phon e Number [facility] - 200 [place], [place] [address] [place] [address] [address] (ABNORMAL) Prothrombin Time (PT) (11/11/2021 4:31 [...] ADD-ON Performing Organization Address City/[facility] Phon e Number [facility] - [address] [place] [address] 05 [facility] [place] [address] [address] (ABNORMAL) Comprehensive Metabolic Panel (11/11/2021 4:31 [...] 11/11/2021 DTL Black/ mL/min/BSA 6:27 AM CDT Citizen [place] Comment: ----ADDITIONAL INFORMATION---- Estimated GFR calculated using [...] M.S. LAB BLOOD ADD-ON Performing Organization Address [facility] Phon e Number [facility] - [address] [place], [place] [address] [facility] [place] [address] [facility] 200 [facility] (ABNORMAL) CBC without Differential (11/11/2021 4:31 AM CDT) [facility] Method Time Signature Hemoglobin 7.4 (L) [...] MSumaS. LAB BLOOD ADD-ON Performing Organization Address City/State/[facility] Phon e Number [facility] - [address] [place], [place] [address] [facility] [address] [facility] 200 [facility] Transfuse Red Blood Cells : (11/10/2021 9:05 [...] process. ?? All other fluids refer to [email or web address] for further interpretive information. This t est has been modified from the web architect's instruc tions. Its performance characteristics were determi foreign by [facility] in a manner consistent with CLIA [...] AND STOOLS O JOSE Performing Organization Address City/[facility] Code Phon e Number [facility] - [id number] [place] [address] Gram Stain (11/10/2021 2:32 PM CDT) [facility] Method Time Signature Gram Stain No organisms seen. 11/10/2021 DTL White blood cells present. 8:25 PM CDT Specimen Anatomical Collection Method Collection Time Receive d Time (Source) Location / / Volume Laterality Fluid 11/10/2021 2:32 PM 2 5:21 (Peritoneal CDT PM CDT Fluid) Comment: Specimen Source Site: Fluid Narrative [facility] - [facility] - 11/10/2021 8:25 PM CDT Bacterial Culture: Received Bactec aerob ic and Bactec anaerobic bottles Gerard Andino M.D., M.S. LAB MICROBIOLOGY - GENERAL O JOSE Performing Organization Address City/[facility]/ZIP Code Phon e Number [facility] - [address] [place], [place] [address] [place], [place] [id number] [place] [address] Protein, Total, Body Fluid (11/10/2021 2:32 PM [...] ical findings. All other fluids refer to [email or web address] for further inter pretive information. This test has been modified from the web architect's instructions. Its perform ance characteristics were determined by [facility] in a manner consistent with CLIA [...] Code Phon e Number [facility] - [address] [place] [address] [facility] [place] [address] [facility] 200 [facility] Cell Count and Differential, Body Fluid (11/10/2021 2:32 PM CDT) Patholo gist Method Time Signature Fluid [...] Its performance characteri stics were determined by [facility] in a manner co nsistent with [...] Code Phon e Number [facility] - [address] [place], [place] [address] [place] [address] [facility] [address] Bacterial Culture, Aerobic + Susc (11/10/2021 2:32 PM CDT) [facility] Method Time Signature Bacterial No growth 11/15/2021 DTL Culture, after 5 9:17 AM CDT Aerobic + Susc days of incubation. Specimen Anatomical Collection Method Collection Time Receive d Time (Source) Location / / Volume Laterality Fluid 11/10/2021 2:32 PM 2 5:21 (Peritoneal CDT PM CDT Fluid) Comment: Specimen Source Site: Fluid Narrative [facility] - [facility] - 11/15/2021 9:17 AM CDT Bacterial Culture: Received Bactec aerob ic and Bactec anaerobic bottles Gerard Andino M.D., M.S. LAB MICROBIOLOGY - GENERAL O RDERABLES Performing Organization Address [facility] Phon e Number [facility] - [address] [place] [address] 05 [facility] [address] [facility] 200 [facility] Transfuse Red Blood Cells : (11/10/2021 12:21 PM CDT) Dina Campa M.D. BLOOD TRANSFUSION ORDERABLES Transfuse Red Blood Cells : , 1 Units (11/10/2021 12:21 PM CDT) Dina Campa M.D. BLOOD TRANSFUSION ORDERABLES Direct Antiglobulin Test (Poly) (11/10/2021 12:02 PM CDT) Patholo gist Method Time Signature Direct Negative Negative 11/10/2021 [facility] Antiglobulin 12:44 PM CDT Test, Polyspecific Specimen Anatomical Collection Method Collection Time Receive d Time (Source) Location / / Volume Laterality Blood (Blood, 11/10/2021 12:02 11/10/2021 Venous) PM CDT 12:16 PM CDT Dina Capma M.D. LAB BLOOD BANK TEST ORDERABL ES Performing Organization Address [facility] Phon e Number [facility] - [address] [place] [address] [facility] [place] [address] [facility] 200 [facility] (ABNORMAL) SPSMA Result (11/10/2021 12:02 PM CDT) Analysis Performed At Patho logist Time Signature Neutrophilic Segs 80 (H) 50 - 75 % 11/10/2021 [facility] 2:35 PM CDT Lymphocytes 16 (L) 18 - 42 % 11/10/2021 [facility] 2:35 PM CDT Monocytes 1 (L) 2 - 11 % 11/10/2021 [facility] 2:35 PM CDT Eosinophils 1 1 - 3 % 11/10/2021 [facility] 2:35 PM CDT Basophils 2 0 - 2 % 11/10/2021 [facility] 2:35 PM CDT Manual Absolute 5.20 1.56 - 11/10/2021 [facility] Neutrophil Count 6.45 2:35 PM CDT x10(9)/L [...] Reviewed by: Ruth 11/10/2021 2:35 PM CDT [facility] Specimen Anatomical Collection Method Collection Time Receive d Time (Source) Location / / Volume Laterality Blood (Blood, 11/10/2021 12:02 11/10/2021 Venous) PM CDT 12:29 PM CDT Dina Campa M.D. LAB BLOOD ADD-ON Performing Organization Address City/State/ZIP Code Phon e Number [facility] - [address] [place], [place] [address] [place] [address] [facility] [address] (ABNORMAL) Haptoglobin (11/10/2021 12:02 PM CDT) [facility] Haptoglobin, S <14 (L) 30 - 200 11/10/2021 [facility] mg/dL 5:27 PM CDT Specimen Anatomical Collection Method Collection Time Receive d Time (Source) Location / / Volume Laterality Blood (Blood, 11/10/2021 12:02 11/10/2021 3:46 Venous) PM CDT PM CDT Dina Campa M.D. LAB BLOOD ADD-ON Performing Organization Address City/State/ZIP Code Phon e Number [facility] [address] [place], [place] [address] [facility] [place] [address] Laboratory Medicine and Pathology [address] TA CESAR (Lactate Dehydrogenase) (11/10/2021 12:02 PM CDT) [facility] LD [phone] - 222 11/10/2021 DTL U/L 1:10 PM CDT Specimen Anatomical Collection Method Collection Time Receive d Time (Source) Location / / Volume Laterality Blood (Blood, 11/10/2021 12:02 11/10/2021 Venous) PM CDT 12:48 PM CDT Dina Campa M.D. LAB BLOOD NON ADD-ON Performing Organization Address City/State/ZIP Code Phon e Number [facility] - [address] (ABNORMAL) Reticulocytes (11/10/2021 12:02 PM CDT) [...] ADD-ON Performing Organization Address City/[facility] Code Phon e Number [facility] - [address] (ABNORMAL) Hemoglobin (11/10/2021 12:02 PM CDT) [...] Code Phon e Number [facility] - [address] [place] [address] [facility] [address] [facility] (ABNORMAL) Prothrombin Time (PT) (11/10/2021 4:38 AM [...] Code Phon e Number [facility] - [address] Phosphorus Inorganic (11/10/2021 4:38 AM CDT) [...] City/State/ZIP Code Phon e Number [facility] [address] Magnesium (11/10/2021 4:38 AM CDT) P [...] Code Phon e Number [facility] - 200 [place], [place] [address] [facility] [place] [address] [facility] 200 [facility] (ABNORMAL) Basic Metabolic Panel (11/10/2021 4:38 AM [...] 11/10/2021 DTL Black/ mL/min/BSA 7:08 AM CDT Citizen [place] Comment: ----ADDITIONAL INFORMATION---- Estimated GFR calculated using [...] Code Phon e Number [facility] - 200 [place], [place] [address] [facility] [place] [address] [facility] [address] [facility] (ABNORMAL) CBC with Differential, Blood (11/10/2021 4:38 AM CDT) athologist Signature Hemoglobin 5.5 (CL) 11.6 - [...] [facility]/ZIP Code Phon e Number [facility] - [address] [place], [place] [address] [facility] [place] [address] Laboratories-[address] Type and Screen (with reflex Antibody ID) (11/10/2021 4:37 AM CDT) Patholo gist Method Time Signature ABORh B Pos Not 11/10/2021 [facility] applicable 7:54 AM CDT Antibody Negative Negative 11/10/2021 [facility] Screen 8:07 AM CDT Type & Screen 11/13/2021 11/10/2021 [facility] Expiration 23:59 7:54 AM CDT Testing [place] DEFAULT 11/10/2021 STR[facility] Location 7:29 AM CDT Specimen Anatomical Collection Method Collection Time Receive d Time (Source) Location / / Volume Laterality Blood (Blood, 11/10/2021 4:37 AM 11/11/19 7:29 Venous) CDT AM CDT Dina Campa M.D. LAB BLOOD BANK TEST ORDERABL ES Performing Organization Address City/[facility]/ZIP Code Phon e Number [facility] - [address] [place], [place] [address] [facility] [place] [address] [address] ECG 12 Lead (11/09/2021 10:47 PM CDT) P athologist Signature Ventricular Rate 88 BPM MUSE ECG/Min TX Interval 158 ms MUSE QRSD Interval 84 ms MUSE QT Interval 344 ms MUSE QTC Interval 417 ms MUSE P [place] 64 degrees MUSE R [place] 46 degrees MUSE T Wave [place] 37 degrees MUSE Specimen Anatomical Collection Method [...] Organization Address City/State/ZIP Code Phon e Number [facility]ERTHA STONE NA US Liver Doppler (11/09/2021 10:04 PM [...] LI-RADS is supported and endorsed by the [place] [employer]. More information can be found on the followRealeyes g link: https://www.acr.org/Clinical-Resources/Rrovvjdmo-dip-Gcwt-Systems/LI-RADS/Ultras giuv-AK-KLDZ-v2017 Procedure Note Rex Jenkins M.D. - 11/10/2021 [...] LI-RADS is supported and endorsed by the [place] [employer]. More information can be found on the Brainlike link: https://www.acr.org/Clinical-Resources/Zupqwzeoh-pav-Fezq-Systems/LI-RADS/Ultras lncn-WZ-LXXE-v2017 IMPRESSION: 1. Cirrhotic morphology of the liver wit hout suspicious focal hepatic lesions. LI-RADS 1B. 2. Hepatic arterial and venous vasculatu re is patent with antegrade flow. Elevated main hepatic artery velocities. 3. Moderate volume ascites. Dina Campa M.D. IMG US PROCEDURES Bacteria / Ines Culture, Blood #2 (11/09/2021 8:25 PM CDT) [facility] Method Time Signature Bacteria/Adriana No growth 11/14/2021 DTL da Culture, after 5 10:02 PM CDT Blood days of incubation. Specimen (Source) Anatomical Collection Method Collection Time Re ceived Time Location / / Volume Laterality Blood (Blood, 11/09/2021 8:25 11/09/2021 9:40 Peripheral Draw) PM CDT PM CDT Comment: Specimen Source Site: Blood Narrative [facility] - 11/14/2021 10:02 PM CDT Received Bactec Peds bottle Dina Campa M.D. LAB MICROBIOLOGY - GENERAL O JOSE Performing Organization Address City/[facility] Phon e Number [facility] - 200 [place], [place] [address] [place] [address] Bacteria / Ines Culture, Blood #1 (11/09/2021 [...] CDT Comment: Specimen Source Site: Blood Narrative [facility] - 11/14/2021 8:02 PM CDT Received Bactec Peds bottle Dina Campa M.D. LAB MICROBIOLOGY - GENERAL O JOSE Performing Organization Address City/[facility] Phon e Number [facility] - [address] [place], [place] [address] [place], [place] [id number] [place] [address] Phosphorus Inorganic (11/09/2021 7:09 PM CDT) P [...] Code Phon e Number [facility] - [address] [place], [place] [address] [facility] [place] [address] [facility] [address] AFP (Alpha-Fetoprotein), Tumor Marker (11/09/2021 7:09 PM CDT) athologist Signature Alpha-Fetoprote 6.4 ng/mL 11/10/2021 [facility] in, Tumor 3:04 PM CDT Marker, [...] method is an immunoenzymatic assay manufactured by [employer]. and is tested on the [employer] DxI 800. Values obtained with different assay [...] [facility]/ZIP Code Phon e Number [facility] [address] [place], [place] [address] [facility] [place] [address] Laboratory Medicine and Pathology [address] [...] ADD-ON Performing Organization Address City/[facility] Code Phon e Number [facility] - [address] DTL [place] [address] (ABNORMAL) Lactate, baseline (11/09/2021 7:09 [...] Performing Organization Address City/[facility]/ZIP [facility] Phon e Number [facility] - [address] STMA [place] [address] (ABNORMAL) Hepatic Function Panel (11/09/2021 7:09 [...] Code Phon e Number [facility] - [address] [place] [address] [facility] [place] [address] [facility] 200 [facility] (ABNORMAL) Basic Metabolic Panel (11/09/2021 7:09 PM [...] 11/09/2021 DTL Black/ mL/min/BSA 9:49 PM CDT [place] Comment: ----ADDITIONAL INFORMATION---- Estimated GFR calculated using [...] [facility]/ZIP Code Phon e Number [facility] - [address] [address] [address] (ABNORMAL) CRP (C-Reactive Protein) (11/09/2021 7:09 [...] [facility]/ZIP Code Phon e Number [facility] - [address] [place] [address] [facility] [address] (ABNORMAL) CBC with Differential, Blood (11/09/2021 7:09 PM CDT) [facility] Method Time Signature Hemoglobin 8.0 (L) [...] Code Phon e Number [facility] - [address] [place], [place] [address] [facility] [place] [address] [facility] [address] documented in this [...] Administer the 25% solution at 100 mL/hr jkuwdlesbaxpr-iseyjlzxts-gtaukwxy in Lipoderm Given 11/11/2021 9 :38 AM [...] human 25 % injection 100 g (COMPLETED) 2355 (N ew Bag - Provider: Kevon Rich R.N.) 100 g, intravenous, Once, On Wed11/09/21 at 2330, For 1 dose, If no infusion rate specified: Administer the 25% solution at 100 mL/hr upeczlaxvdram-sgmvrginjs-ijhsjynp in Lipoderm 2%-5%-5% cream 1 g 1337 (Given - Provider: Neptali Calvillo R.N.)2138 (Given - Provider: Karen Palacio R.N.) 0938 (Given - Provider: Bernardo Nguyen R.N.) 1 g, topical, 2 times daily, First dose on Wed11/10/21 at 1330 ciprofloxacin tablet 500 mg (CIPRO) 1049 (Given - Provider: Neptali Calvillo RGabby) 0635 (Given - Provider: Karen day R.NSuma) 500 mg, oral, Daily before breakfast, [...] oxyCODONE IR tablet 5 mg (ROXICODONE) (COMPLETED) 112 (Given - Provider: Bernardo Nguyen R.N.) 5 [...] (VITAMIN B1) 0 917 (Given - Provider: Andrew LaraNSuma) 0938 (Given - Provider: Bernardo Nguyen R.N.) [...] mg (VERSED) 1458 (Given - Provider: Hardy Rosa, R.N.) 0.5 mg, intravenous, Every 2 min [...] Calvillo R.N.) 0203 (Given - Provider: Karen day R.N.)0938 (Given - Provider: Bernardo Nguyen R.N.) 2.5 mg, oral, Every 8 hours PRN, severe pain or score 7-10 of 10, Starting on Wed11/10/21 at 1355 polyethylene glycol powder packet 17 g (MIRALAX) 17 g, oral, Daily PRN, constipation, Sta rting on 11/09/21 at 1749, Ordered sequence of administration: polyethylene glycol, then bisacodyl until BM achieved. Avoid mixing with starch-based thickened liquids. 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
--- OUTSIDE RECORDS SUMMARY | 2022-02-12 20:27 | XMS_ITS | Encounter Summary ---
:1990 Author Organization [facility] Address [address] [place] [address] Care Team Providers Name Role Phone Elsewhere, Pcp Primary Care Provider Unavailable Encounter Details Date Type Department Care Team Description 11/10/2021 Episode Changes [facility] Jack French, for Transplantation and Chano RSumaNSuma, Clinical Regeneration in [facility] [place], [place] [phone] [address] [facility] ([place]) [place] [address] Social History Tobacco Use Types Packs/Day [...] you attend worship or Patient refused 2021 tenriism services? 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 [address] [place] [phone] Virtual Visit Transplant Matthew Jerome 2 Tyrell Rodriguez M.D. [address] [place] [address] [phone] Office Visit Gastroenterology and Matthew Jerome 2 Hepatology Tyrell Rodriguez, Lilian [address] [place] [phone] Appointment Radiology Matthew Jerome 2 YTyrell M.D. [address] [place] [phone] Hospital Gastroenterology and Azchantell Matthew Cirrhos is Alcoholic (HCC) 2 Encounter Hepatology Tyrell Rodriguez, Lilian [address] [place] [phone] Anesthesia Event Gastroenterology and Rl, 2 Hepatology Ervin Burgos M.D. [address] [place] [address] [phone] Surgery Gastroenterology and Queenie Matthew ESOPHAG OGASTRODUODENOSCOPY 2 Hepatology Tyrell Rodriguez, Lilian [address] [place] [phone] Scheduled Procedures Name Priority Associated Diagnoses Date/Time ESOPHAGOGASTRODUODENOSCOPY Cirrhosis Alc oholic (HCC) 03/20/2022 8:45 AM CHILD SUPPORT CASE OFFICER Hypertension Portal (HCC) documented as of this encounter Visit Diagnoses Not on filedocumented in this encounter Additional Health Concerns Assessment Noted Time PHQ-9 Depression Total Score: 10 10/06/2021 5:00 PM CD T documented as of this encounter Care Teams Professor Of Theater Relationship Specialty Start Date End Date Elsewhere, Pcp PCP - General Family Medicine 03/10/20 11/30/21 [facility] 08/25/21 Ervin Schroeder MD Referring Provider Family Medicine 03/24/[address] [place] [address] documented as of this encounter
--- OUTSIDE RECORDS SUMMARY | 2022-02-12 20:27 | XMS_ITS | Encounter Summary ---
:1990 Author Organization [facility] Address [address] [place] [address] Care Team Providers Name Role Phone Elsewhere, Pcp Primary Care Provider Unavailable Reason for Visit Reason Comments Follow up on caregiver plan Encounter Details Date Type Department Care Team Description 10/20/2021 Clinical Ramirez Santana, Follow up on Communication Center for Joel Gannon, caregiver plan Transplantation and L.I.C.S.W., Clinical Regeneration M.S.W. in [facility] [address] [place], [place] [address] [facility] [address] [place], [place] [phone] (Work) [phone] Social History Tobacco Use Types Packs/Day Years [...] you attend restoration or Patient refused 2021 zoroastrianism services? Do you belong to any clubs or No 02/10/2022 organizations such as restoration groups, unions, [employer] or athletic groups, or school groups? [...] highest technical, or vocational p [facility] degree you have received? 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 Radhames Neumann in [facility] Transplant Psychiatry (Pain Rehabilitation) - virtual Complex [...] called the patient on 10/17/2021 (cell phone: [phone]) to attempt to follow up on her [...] Radiology LuisNew abdular 2 Tyrell Rodriguez M.D. [address] [place] [address] [phone] Appointment Gastroenterology and Adrianne, 2 Hepatology Yue Burciaga M.D. [address] [place] [phone] Virtual Visit Transplant LuisMatthew abdul 2 YTyrell M.D. [address] [place] [address] [phone] Office Visit Gastroenterology and LuisMatthew abdul 2 Hepatology Tyrell Rodriguez M.D. [address] [place] [address] [phone] Appointment Radiology LuisNew abdular 2 Tyrell Rodriguez M.D. [address] [place] [address] [phone] Hospital Gastroenterology and LuisMatthew abdul Cirrhos is Alcoholic (HCC) 2 Encounter Hepatology Tyrell Rodriguez M.D. [address] [place] [address] [phone] Anesthesia Event Gastroenterology and Rl, 2 Hepatology Ervin Burgos M.D. [address] [place] [address] [phone] Surgery Gastroenterology and Mousa, Matthew ESOPHAG OGASTRODUODENOSCOPY 2 Hepatology Tyrell Rodriguez M.D. [address] [place] [address] [phone] Scheduled Procedures Name Priority Associated Diagnoses Date/Time ESOPHAGOGASTRODUODENOSCOPY Cirrhosis Alc oholic (HCC) 03/20/2022 8:45 AM INSPECTOR EYEGLASS FRAMES Hypertension Portal (HCC) documented as of this encounter Visit Diagnoses Not on filedocumented in this encounter Additional Health Concerns Assessment Noted Time PHQ-9 Depression Total Score: 10 10/06/2021 5:00 PM CD T documented as of this encounter Care Teams Manager Staffing Relationship Specialty Start Date End Date Elsewhere, Pcp PCP - General Family Medicine 03/10/20 11/30/21 [facility] [place] [facility] 08/25/21 Ervin Schroeder MD Referring Provider Family Medicine 03/24/[address] [place] [address] documented as of this encounter
--- OUTSIDE RECORDS SUMMARY | 2022-02-12 20:27 | XMS_ITS | Encounter Summary ---
:1990 Author Organization [facility] Address [address] [place] [address] Care Team Providers Name Role Phone Elsewhere, Pcp Primary Care Provider Unavailable Reason for Visit Reason Comments Fatigue Encounter Details Date Type Department Care Team Description 10/17/2021 Nurse Triage Department of Laura Flor, Fatigue Medicine, [facility], R.N. in [facility] [address] [facility] [address] [place], [place] [phone] Social History Tobacco Use Types Packs/Day Years [...] How often do you attend scientologist or Patient refused 2021 orthodox services? 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 Call your doctor (or CONFERENCE DIRECTOR/PA) when the office opens and make [...] 3 days Protocols used: WEAKNESS (GENERALIZED) AND [id number] documented in this encounter Plan of Treatment Upcoming Encounters Date Type Specialty Care Team Description Telemedicine Transplant 2 Appointment Radiology Matthew Jerome 2, M.B.B.S., M.D. [address] [place] [phone] Appointment Gastroenterdina and Adrianne, 2 Hepatology Yue Burciaga M.D. [address] [place] [phone] Virtual Visit Transplant Matthew Jerome 2 YTyrell M.D. [address] [place] [phone] Office Visit Gastroenterology and Matthew Jerome 2 Hepatology Tyrell Rodriguez M.D. [address] [place] [phone] Appointment Radiology LuisMatthew abdul 2 YTyrell M.D. [address] [place] [phone] Hospital Gastroenterology and Matthew Jerome Cirrhos is Alcoholic (HCC) 2 Encounter Hepatology Tyrell Rodriguez M.D. [address] [place] [phone] Anesthesia Event Gastroenterology and Rl, 2 Hepatology Ervin Burgos M.D. [address] [place] [address] [phone] Surgery Gastroenterology and Matthew Jerome ESOPHAG OGASTRODUODENOSCOPY 2 Hepatology Tyrell Rodriguez M.D. [address] [place] [address] [phone] Scheduled Procedures Name Priority Associated Diagnoses Date/Time ESOPHAGOGASTRODUODENOSCOPY Cirrhosis Alc oholic (HCC) 03/20/2022 8:45 AM TECHNICAL ACCOUNT MANAGER Hypertension Portal (HCC) documented as of this encounter Visit Diagnoses Not on filedocumented in this encounter Additional Health Concerns Assessment Noted Time PHQ-9 Depression Total Score: 10 10/06/2021 5:00 PM CD T documented as of this encounter Care Teams Retail Manager Relationship Specialty Start Date End Date Elsewhere, Pcp PCP - General Family Medicine 03/10/20 11/30/21 [facility] [place] [facility] 08/25/21 Ervin Schroeder MD Referring Provider Family Medicine 03/24/[address] [place] [phone] documented as of this encounter
--- OUTSIDE RECORDS SUMMARY | 2022-02-12 20:27 | XMS_ITS | Encounter Summary ---
:1990 Author Organization [facility] Address [address] [place] [address] Care Team Providers Name Role Phone Elsewhere, Pcp Primary Care Provider Unavailable Reason for Referral Outpatient (Routine) - Authorized Specialty Diagnoses / Procedures Referred By Contact Refer red To Contact Nicotine Dependence Diagnoses Abuse Tobacco Smoking Ervin Schroeder [place] M.D. [address] [place] [address] Referral ID Status Reason Start Date Expiration Date Visits V isits Requested Authorized [id number] Authorized 11/26/2021 11/26/2022 1 1 Encounter Details Date Type Department Care Team Description 11/14/2021 [facility] Ervin Schroeder Tobacco Smoking (Primary Dx); AND CLINICS TOBY Schaefer M.D. Unspecified Cirrhosis Of Liver (HCC) CLINIC [address] [facility] [address] [place], [place] [address] [phone] Social History Tobacco Use Types Packs/Day Years [...] you attend temple or Patient refused 2021 baptist services? 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 [address] [place] [phone] Virtual Visit Transplant LuisMatthew abdul 2 Vik RodriguezBLilian Bedolla [address] [place] [phone] Office Visit Gastroenterology and New Jeromear 2 Hepatology Tyrell Rodriguez M.D. [address] [place] [phone] Appointment Radiology Queenie Matthew 2 Joshua RodriguezBSumaBLilian Bedolla [address] [place] [phone] Hospital Gastroenterology and Queenie Matthew Cirrhos is Alcoholic (HCC) 2 Encounter Hepatology Joshua RodriguezBSumaBLilian Bedolla [address] [place] [phone] Anesthesia Event Gastroenterology and Rl, 2 Hepatology Ervin Burgos M.D. [address] [place] [address] [phone] Surgery Gastroenterology and Matthew Jerome ESOPHAG OGASTRODUODENOSCOPY 2 Hepatology Joshua RodriguezB.BLilian Bedolla [address] [place] [phone] Scheduled Procedures Name Priority Associated Diagnoses Date/Time ESOPHAGOGASTRODUODENOSCOPY Cirrhosis Alc oholic (HCC) 03/20/2022 8:45 AM PUBLIC HEALTH EPIDEMIOLOGIST Hypertension Portal (HCC) Scheduled Referrals Name Type [...] documented as of this encounter Care Teams Hot Packer Relationship Specialty Start Date End Date Elsewhere, Pcp PCP - General Family Medicine 03/10/20 11/30/21 [facility] [place] [facility] 08/25/21 Ervin Schroeder MD Referring Provider Family Medicine 03/24/[address] [place] [phone] documented as of this encounter
--- OUTSIDE RECORDS SUMMARY | 2022-02-12 20:27 | XMS_ITS | Encounter Summary ---
:1990 Author Organization [facility] Address [address] [place] [address] Care Team Providers Name Role Phone Elsewhere, Pcp Primary Care Provider Unavailable Reason for Visit Transplant (Routine) - Closed Specialty Diagnoses / Procedures Referred By Contact Refer red To Contact Transplant Surgery / Diagnoses Cirrhosis Alcoholic (HCC) Abnormal Liver Function Test Ascites Pretransplant Recipient Evaluation Exam Preoperative Exam [facility] Lilian, M.P.H. [address] [place] [address] Referral ID Status Reason Start Date Expiration Date Visits Requ ested Visits Authorized [id number] Closed 08/25/2021 08/25/2022 1 1 Encounter Details Date Type Department Care Team Description 10/22/2021 Telemedicine Warren Carter M.D., M.P.H. [address] [place] [address] Moderate Or Severe Use Disorder (Depende nce) Alcohol Remission (HCC) (Primary Dx); Brigid Graham M.D. 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 - 10/22/2021 3:00 PM CDT DEMOGRAPHICS Catia Carias [address] [place] [phone] 31 y.o. REFERRAL SOURCE: Warren Hernández M.D., M.P.H. Consult conducted via real-time audio/video technology by Brigid Sales M.D. in [facility] to the patient in Patient's Home [...] time of this evaluation and reviewed the [facility] record. She has been seen by my [...] and Family: Twice a week ??? Attends Sikh Services: Never ??? 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 Children: No Sikh/spiritual: None reported. Support network: She is not [...] Matthew Jerome 2 Tyrell Rodriguez M.D. [address] [place] [phone] Appointment Gastroenterology demian Silver, 2 Hepatology Yue Burciaga M.D. [address] [place] [phone] Virtual Visit Transplant Matthew Jerome 2 Tyrell Rodriguez M.D. [address] [place] [phone] Office Visit Gastroenterology and Matthew Jerome 2 Hepatology Tyrell Rodriguez M.D. [address] [place] [address] [phone] Appointment Radiology Matthew Jerome 2 Tyrell Rodriguez M.D. [address] [place] [phone] Hospital Gastroenterology and Matthew Jerome Cirrhos is Alcoholic (HCC) 2 Encounter Hepatology Tyrell Rodriguez, Lilian [address] [place] [phone] Anesthesia Event Gastroenterology and Rl, 2 Hepatology Ervin Burgos M.D. [address] [place] [address] [phone] Surgery Gastroenterology and Mousa, Matthew ESOPHAG OGASTRODUODENOSCOPY 2 Hepatology Tyrell Rodriguez, Lilian [address] [place] [phone] Scheduled Procedures Name Priority Associated Diagnoses Date/Time ESOPHAGOGASTRODUODENOSCOPY Cirrhosis Alc oholic (HCC) 03/20/2022 8:45 AM EPOXY FABRICATION SUPERVISOR Hypertension Portal (HCC) documented as of [...] as of this encounter Care Teams Deck Mechanic Relationship Specialty Start Date End Date Elsewhere, Pcp PCP - General Family Medicine 03/10/20 11/30/21 [facility] [place] [facility] 08/25/21 Ervin Schroeder MD Referring Provider Family Medicine 03/24/[address] [place] [address] documented as of this encounter
--- OUTSIDE RECORDS SUMMARY | 2022-02-12 20:27 | XMS_ITS | Encounter Summary ---
:1990 Author Organization [facility] Address [address] [place] [address] Care Team Providers Name Role Phone Elsewhere, Pcp Primary Care Provider Unavailable Reason for Visit Reason Comments Vitamin K Encounter Details Date Type Department Care Team Description 10/31/2021 Clinical Communication [facility] PRE/POS T Alina Carranza, Vitamin K [address] [place] [address] [phone] Social History Tobacco Use Types Packs/Day Years [...] you attend amish or Patient refused 2021 pentecostal services? 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 - 10/31/2021 4:22 PM CDT This scenario writer contacted [facility] in [facility], spoke to Perri. Prescription for Vitamin K was received and has not been entered. Perri stated prescription will be ready and patient will be notified by pharmacy via notification system. This scenario writer sent patient a message via portal. [...] Appointment Radiology Matthew Jerome 2 YVikBGraeme, Lilian [address] [place] [phone] Appointment Gastroenterology demian Silver, 2 Hepatology Yue Burciaga M.D. [address] [place] [phone] Virtual Visit Transplant Matthew Jerome 2 Joshua RodriguezBSumaBLilian Bedolla [address] [place] [phone] Office Visit Gastroenterology and Matthew Jerome 2 Hepatology Vik RodriguezBLilian Bedolla [address] [place] [phone] Appointment Radiology Matthew Jerome 2 YJoshuaB.BLilian Bedolla [address] [place] [phone] Hospital Gastroenterology and Matthew Jerome Cirrhos is Alcoholic (HCC) 2 Encounter Hepatology Joshua RodriguezB.BLilian Bedolla [address] [place] [phone] Anesthesia Event Gastroenterology and Rl, 2 Hepatology Ervin Burgos M.D. [address] [place] [address] [phone] Surgery Gastroenterology and Mousa, Matthew ESOPHAG OGASTRODUODENOSCOPY 2 Hepatology Tyrell Rodriguez, Lilian [address] [place] [phone] Scheduled Procedures Name Priority Associated Diagnoses Date/Time ESOPHAGOGASTRODUODENOSCOPY Cirrhosis Alc oholic (HCC) 03/20/2022 8:45 AM CORE SUCKER Hypertension Portal (HCC) documented as of this encounter Visit Diagnoses Not on filedocumented in this encounter Additional Health Concerns Assessment Noted Time PHQ-9 Depression Total Score: 10 10/06/2021 5:00 PM CD T documented as of this encounter Care Teams Instructional Material Director Relationship Specialty Start Date End Date Elsewhere, Pcp PCP - General Family Medicine 03/10/20 11/30/21 [facility] [place] [facility] 08/25/21 Ervin Schroeder MD Referring Provider Family Medicine 03/24/[address] [place] [phone] documented as of this encounter
--- OUTSIDE RECORDS SUMMARY | 2022-02-12 20:28 | XMS_ITS | Encounter Summary ---
:1990 Author Organization [facility] Address [address] [place] [address] Care Team Providers Name Role Phone Elsewhere, Pcp Primary Care Provider Unavailable Encounter Details Date Type Department Care Team Description 10/02/2021 Orders Only Jairo Gamino am [facility] Transplantation 200 1 [facility] Exam (Primary Dx) and Clinical Regeneration [place], [place] in [facility] [phone] [place] [phone] Social History Tobacco Use Types Packs/Day [...] you attend scientology or Patient refused 2021 samaritan services? 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 [address] [place] [phone] Appointment Gastroenterology and Adrianne, 2 Hepatology Yue Burciaga M.D. [address] [place] [phone] Virtual Visit Transplant Matthew Jerome 2 YTyrell M.D. [address] [place] [address] [phone] Office Visit Gastroenterology and Matthew Jerome 2 Hepatology Tyrell Rodriguez M.D. [address] [place] [phone] Appointment Radiology Matthew Jerome 2 YTyrell, Lilian [address] [place] [phone] Hospital Gastroenterology and TnMatthew abdul Cirrhos is Alcoholic (HCC) 2 Encounter Hepatology Tyrell Rodriguez, Lilian [address] [place] [address] [phone] Anesthesia Event Gastroenterology and [facility], 2 Hepatology Ervin Burgos M.D. [address] [place] [address] [phone] Surgery Gastroenterology and Tnchantell Matthew ESOPHAG OGASTRODUODENOSCOPY 2 Hepatology Vik RodriguezBGraeme, Lilian [address] [place] [address] [phone] Scheduled Procedures Name Priority Associated Diagnoses Date/Time ESOPHAGOGASTRODUODENOSCOPY Cirrhosis Alc oholic (HCC) 03/20/2022 8:45 AM SQL ENGINEER Hypertension Portal (HCC) documented as of this encounter Visit Diagnoses Diagnosis Clinical Research Exam - Primary Cirrhosis Alcoholic (HCC) Cirrhosis Alcoholic (HCC) Hypertension Portal (HCC) documented in this encounter Care Teams Preventive Maintenance Coordinator Relationship Specialty Start Date End Date Elsewhere, Pcp PCP - General Family Medicine 03/10/20 11/30/21 [facility] [place] [facility] 08/25/21 Ervin Schroeder MD Referring Provider Family Medicine 03/24/[address] [place] [phone] documented as of this encounter
--- OUTSIDE RECORDS SUMMARY | 2022-02-12 20:28 | XMS_ITS | Encounter Summary ---
:1990 Author Organization [facility] Address [address] [place] [address] Care Team Providers Name Role Phone Elsewhere, Pcp Primary Care Provider Unavailable Reason for Referral Outpatient (Routine) - Pending Review Specialty Diagnoses / Procedures Referred By Contact Refer red To Contact Migue Justice M .D. [facility] [address] [place] [phone] Referral ID Status Reason Start Date Expiration Date Visits V isits Requested Authorized [id number] Pending 10/01/2021 10/01/2022 1 1 Review Scheduling Instructions Calendar: TXP RESEARCH ROCH 10 [TXP ROCH] Floor: [place] 10a Encounter Details Date Type Department Care Team Description 10/01/2021 Orders Only Ramirez Nguyen [facility] Bernardo cooley for Transplantation and [address] [place] [address] Clinical Regeneration in [place], [place] [phone] [place] [phone] Social History Tobacco Use Types Packs/Day [...] you attend adventist or Patient refused 2021 shinto services? 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 [address] [place] [phone] Appointment Gastroenterology and Adrianne, 2 Hepatology Yue Burciaga M.D. [address] [place] [phone] Virtual Visit Transplant [place] Jerome 2 Tyrell Rodriguez M.D. [address] [place] [phone] Office Visit Gastroenterology and [place] Jerome 2 Hepatology Tyrell Rodriguez M.D. [address] [place] [phone] Appointment Radiology LuisMatthew abdul 2 Tyrell Rodriguez M.D. [address] [place] [phone] Hospital Gastroenterology and Matthew Jerome Cirrhos is Alcoholic (HCC) 2 Encounter Hepatology Tyrell Rodriguez M.D. [address] [place] [phone] Anesthesia Event Gastroenterology and Rl, 2 Hepatology Ervin Burgos M.D. [address] [place] [phone] Surgery Gastroenterology and Matthew Jerome ESOPHAG OGASTRODUODENOSCOPY 2 Hepatology Joshua RodriguezBSumaBLilian Bedolla [address] [place] [phone] Scheduled Procedures Name Priority Associated Diagnoses Date/Time ESOPHAGOGASTRODUODENOSCOPY Cirrhosis Alc oholic (HCC) 03/20/2022 8:45 AM HOME APPRAISER Hypertension Portal (HCC) Scheduled Referrals Name Type Priority Associated Order Schedule Diagnoses Research Study Outpatient Referral Routine Expect ed: Coordinator office 2 visit (clinic) (Approximate) , Expires: 01/01/2023 documented as of this encounter Visit Diagnoses Not on filedocumented in this encounter Care Teams Traveling Repair Accountant Relationship Specialty Start Date End Date Elsewhere, Pcp PCP - General Family Medicine 03/10/20 11/30/21 [facility] 08/25/21 Ervin Schroeder MD Referring Provider Family Medicine 03/24/[address] [place] [address] documented as of this encounter
--- OUTSIDE RECORDS SUMMARY | 2022-02-12 20:28 | XMS_ITS | Encounter Summary ---
:1990 Author Organization [facility] Address [address] [place] [address] Care Team Providers Name Role Phone Elsewhere, Pcp Primary Care Provider Unavailable Reason for Visit Transplant (Routine) - Closed Specialty Diagnoses / Procedures Referred By Contact Refer red To Contact Transplant Surgery / Warren Hern[facility]dez [facility] Transplant Lilian, M.P.H. [address] [place] [address] Referral ID Status Reason Start Date Expiration Date Visits Requ ested Visits Authorized [id number] Closed 08/26/2021 08/26/2022 1 1 Encounter Details Date Type Department Care Team Description 10/03/2021 Office Visit Silvano Funez M.D. [address] [place] [phone] Patent Foramen Ovale (HCC) (Primary Dx); [facility] Abelino Chow M.D. [address] [place] [phone] Hypertension Portal (HCC); Transplantation and Cirrhosi s Alcoholic (HCC); Clinical Regeneration in Pre transplant Recipient Evaluation Exam [place], [place] [address] [place] [phone] Social History Tobacco Use Types Packs/Day [...] you attend buddhism or Patient refused 2021 rastafari services? 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 [address] [place] [phone] Virtual Visit Transplant Queenie Matthew 2 Elizabeth Rodriguez.B.B.SLilian Moise [address] [place] [phone] Office Visit Gastroenterology and [place] Jerome 2 Hepatology Joshua RodriguezB.B.SLilian Moise [address] [place] [phone] Appointment Radiology Matthew Jerome 2 Y M.B.B.SLilian Moise [address] [place] [phone] Hospital Gastroenterology and [place] Jerome Cirrhos is Alcoholic (HCC) 2 Encounter Hepatology Joshua RodriguezB.B.SLilian Moise [address] [place] [phone] Anesthesia Event Gastroenterology and Rl, 2 Hepatology Ervin Burgos M.D. [address] [place] [phone] Surgery Gastroenterology and Mousa, Matthew ESOPHAG OGASTRODUODENOSCOPY 2 Hepatology Tyrell Rodriguez M.D. [address] [place] [phone] Scheduled Procedures Name Priority Associated Diagnoses Date/Time ESOPHAGOGASTRODUODENOSCOPY Cirrhosis Alc oholic (HCC) 03/20/2022 8:45 AM ISOTOPE TECHNOLOGIST Hypertension Portal (HCC) documented as of this encounter Visit Diagnoses Diagnosis Patent Foramen Ovale (HCC) - Primary Hypertension Portal (HCC) Cirrhosis Alcoholic (HCC) Pretransplant Recipient Evaluation Exam Cirrhosis Alcoholic (HCC) Cirrhosis Alcoholic (HCC) Hypertension Portal (HCC) documented in this encounter Care Teams Field Sales Manager Relationship Specialty Start Date End Date Elsewhere, Pcp PCP - General Family Medicine 03/10/20 11/30/21 [facility] [place] [facility] 08/25/21 Ervin Schroeder MD Referring Provider Family Medicine 03/24/[address] [place] [address] documented as of this encounter
--- OUTSIDE RECORDS SUMMARY | 2022-02-12 20:28 | XMS_ITS | Encounter Summary ---
:1990 Author Organization [facility] Address [address] [place] [address] Care Team Providers Name Role Phone Elsewhere, Pcp Primary Care Provider Unavailable Reason for Visit Reason Comments Medication Question Encounter Details Date Type Department Care Team Description 10/13/2021 Nurse Triage Department of [facility] Jolynn Villarreal M edication Question Medicine, [facility], in [place], [place] (Work) [address] [place] [phone] Social History Tobacco Use Types Packs/Day Years [...] you attend muslim or Patient refused 2021 buddhism services? 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 [address] [place] [phone] Virtual Visit Transplant [place] Jerome 2 Tyrell Rodriguez M.D. [address] [place] [phone] Office Visit Gastroenterology and [place] 2 Hepatology Tyrell Rodriguez M.D. [address] [place] [phone] Appointment Radiology [place] Jerome 2 Joshua RodriguezBSumaBLilian Bedolla [address] [place] [phone] [facility] Gastroenterology and [place] Jerome Cirrhos is Alcoholic (HCC) 2 Encounter Hepatology Joshua RodriguezBSumaBLilian Bedolla [address] [place] [phone] Anesthesia Event Gastroenterology and Rl, 2 Hepatology Ervin Burgos M.D. [address] [place] [phone] Surgery Gastroenterology and [place] Jerome ESOPHAG OGASTRODUODENOSCOPY 2 Hepatology Joshua RodriguezB.BGraeme, Lilian [address] [place] [phone] Scheduled Procedures Name Priority Associated Diagnoses Date/Time ESOPHAGOGASTRODUODENOSCOPY Cirrhosis Alc oholic (HCC) 03/20/2022 8:45 AM CLOUD ADMINISTRATOR Hypertension Portal (HCC) documented as of this encounter Visit Diagnoses Not on filedocumented in this encounter Additional Health Concerns Assessment Noted Time PHQ-9 Depression Total Score: 10 10/06/2021 5:00 PM CD T documented as of this encounter Care Teams Biology Faculty Member Relationship Specialty Start Date End Date Elsewhere, Pcp PCP - General Family Medicine 03/10/20 11/30/21 [facility] [place] [facility] 08/25/21 Ervin Schroeder MD Referring Provider Family Medicine 03/24/[address] [place] [phone] documented as of this encounter
--- OUTSIDE RECORDS SUMMARY | 2022-02-12 20:28 | XMS_ITS | Encounter Summary ---
:1990 Author Organization [facility] Address [address] [place] [address] Care Team Providers Name Role Phone Elsewhere, Pcp Primary Care Provider Unavailable Reason for Referral Outpatient (Routine) - Closed Specialty Diagnoses / Referred By Contact Referred To Procedures Contact Gastroenterology and Diagnoses Cirrhosis Alcoholic (HCC) Hypertension Portal (HCC) Thrombocytopenia (HCC) Abnormal Liver Function Test Deficiency Vitamin A Matthew Jerome [facility] Hepatology Lilian Santillan [address] [place] [address] Referral ID Status Reason Start Date Expiration Date Visits Requ ested Visits Authorized [id number] Closed 10/08/2021 10/08/2022 1 1 Scheduling Instructions 1 month follow up post transplant eval Reason for Visit Reason Comments Follow-up Outpatient (Routine) - Closed Specialty Diagnoses / Referred By Contact Referred To Procedures Contact Gastroenterology and [place] Jerome [facility] Hepatology Lilian Santillan [address] [place] [phone] Referral ID Status Reason Start Date Expiration Date Visits Requ ested Visits Authorized [id number] Closed 08/05/2021 08/05/2022 1 1 Encounter Details Date Type Department Care Team Description 10/08/2021 Office Visit Department of [place], Matthew Cirrhosis Alco holic (HCC) (Primary Dx); Gastroenterology in [place], Hyperten neptali Portal (HCC); [place], [place] Lilian Thrombocytopenia (HCC); 1025 [facility] 1025 [facility] Abnormal Liver Function Test; [place] [address] [place], [place] Deficiency Vitamin A [phone] Social History Tobacco Use Types Packs/Day [...] you attend bahai or Patient refused 2021 rastafarian services? 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 She states that she is transparent with the team and is willing to do anything requested that will help her get on the liver transplant list. We reviewed the recent consultation with surgery team, Cardiology, the social service coordinator as well as the pain clinic. The [...] liver transplant evaluation with the team in [place], pending transplant psychiatry consultation. Unfortunately this was rescheduled until October 22, 2021. I will await her consultation before I present her case to the liver Transplant selection committee in [place], to evaluate her candidacy as a team. [...] PCP ?? #15 Newly diagnosed PFO with [id number] atrial shunt: Echo done March 2020 # [...] OLAYINKA Trotter Gastroenterology, Hepatology and Transplant hepatology [facility] documented in this encounter Plan of Treatment Upcoming Encounters Date Type Specialty Care Team Description Telemedicine Transplant 2 Appointment Radiology Matthew Jerome 2, M.B.B.S., M.D. [address] [place] [phone] Appointment Gastroenterology and Adrianne, 2 Hepatology Yue Burciaga M.D. [address] [place] [phone] Virtual Visit Transplant Matthew Jerome 2, M.B.B.S., M.D. [address] [place] [phone] Office Visit Gastroenterology and [place] Jerome 2 Hepatology Tyrell Rodriguez M.D. [address] [place] [phone] Appointment Radiology Matthew Jerome 2, M.B.B.S., M.D. [address] [place] [phone] Hospital Gastroenterology and Matthew Jerome Cirrhos is Alcoholic (HCC) 2 Encounter Hepatology Tyrell Rodriguez M.D. [address] [place] [phone] Anesthesia Event Gastroenterology and Rl, 2 Hepatology Ervin Burgos M.D. [address] [place] [phone] Surgery Gastroenterology and [place] Jerome ESOPHAG OGASTRODUODENOSCOPY 2 Hepatology Tyrell Rodriguez M.D. [address] [place] [phone] Scheduled Procedures Name Priority Associated Diagnoses Date/Time ESOPHAGOGASTRODUODENOSCOPY Cirrhosis Alc oholic (HCC) 03/20/2022 8:45 AM SUPERINTENDENT MARINE Hypertension Portal (HCC) Scheduled Referrals Name Type [...] PM 12/03/19 6:28 Venous) CDT PM CDT Mattehw Santillan M.D. LAB BLOOD ADD-ON Performing Organization Address City/State/ZIP Code Phon e Number [facility]- [address] [place] [address] [place] [address] System in [place] 2[address] [facility] (ABNORMAL) Prothrombin Time (PT) (12/02/2021 4:14 PM CDT) [facility] gist Method Time Signature Prothrombin 33.5 [...] Organization Address City/State/ZIP Code Phon e Number [facility]- [address] [place] [address] [place] [address] System in [place] [address] [place] [address] documented in this encounter Visit Diagnoses Diagnosis Cirrhosis Alcoholic (HCC) - Primary Hypertension Portal (HCC) Thrombocytopenia (HCC) Abnormal Liver Function Test Deficiency Vitamin A Cirrhosis Alcoholic (HCC) Cirrhosis Alcoholic (HCC) Hypertension Portal (HCC) documented in this encounter Additional Health Concerns Assessment Noted Time PHQ-9 Depression Total Score: 10 10/06/2021 5:00 PM CD T documented as of this encounter Care Teams Photographic Enlarger Operator Relationship Specialty Start Date End Date Elsewhere, Pcp PCP - General Family Medicine 03/10/20 11/30/21 [facility] [place] [facility] 08/25/21 Ervin Schroeder MD Referring Provider Family Medicine 03/24/211979 [address] [place] [address] documented as of this encounter
--- OUTSIDE RECORDS SUMMARY | 2022-02-12 20:28 | XMS_ITS | Encounter Summary ---
:1990 Author Organization [facility] Address [address] [place] [address] Care Team Providers Name Role Phone Elsewhere, Pcp Primary Care Provider Unavailable Encounter Details Date Type Department Care Team Description 10/07/2021 Hospital Encounter Department of Rut Hernández s Alcoholic (HCC); Pulmonary Medicine Warren Schaefer M.D., Abnorm al Liver Function Test; in [facility]; [place] [address] [place] [address] Pretransplant Recipient Evaluation Exam; 1025 [place], [place] Preoperative Exam [place], [place] [phone] Social History Tobacco Use Types Packs/Day [...] you attend christianity or Patient refused 2021 gnosticist services? Do you belong to any clubs or No 02/10/2022 organizations such as christianity groups, unions, fra[employer]Karma or athletic groups, or school groups? 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 [address] [place] [phone] Appointment Gastroenterology and [place], 2 Hepatology Yue Burciaga M.D. [address] [place] [phone] Virtual Visit Transplant LuisNew abdular 2 Tyrell Rodriguez M.D. [address] [place] [phone] Office Visit Gastroenterology and [place] Jerome 2 Hepatology Tyrell Rodriguez M.D. [address] [place] [phone] Appointment Radiology [facility] 2 Tyrell Rodriguez M.D. [address] [place] [phone] Hospital Gastroenterology and [facility] Cirrhos is Alcoholic (HCC) 2 Encounter Hepatology Tyrell Rodriguez M.D. [address] [place] [phone] Anesthesia Event Gastroenterology and Rl, 2 Hepatology Ervin Burgos M.D. [address] [place] [phone] Surgery Gastroenterology and [facility] ESOPHAG OGASTRODUODENOSCOPY 2 Hepatology Tyrell Rodriguez M.D. [address] [place] [phone] Scheduled Procedures Name Priority Associated Diagnoses Date/Time ESOPHAGOGASTRODUODENOSCOPY Cirrhosis Alc oholic (HCC) 03/20/2022 8:45 AM SHUTDOWN COORDINATOR Hypertension Portal (HCC) documented as of [...] CDT) P athologist Signature FVC 4.04 L [facility] [address] FVC% 111 % [facility] FVCLLN 2.88 L [facility] FEV1 3.62 L [facility] FEV1% 118 % [facility] PCK0MHE 2.45 L [facility] FEV1/FVC 90 % [facility] FEV1/FVCLLN 73 % [facility] FEF 25-75 5.30 L/sec [facility] [address] YHV71-53% 154 % [facility] [address] [id number] 2.20 L/sec [facility] SVC 4.19 L [facility] [address] RV 1.17 L [facility] RVULN 2.33 L [facility] TLC 5.36 L [facility] TLC% 111 % [facility] [address] TLCLLN 3.47 L [facility] [address] RV/TLC 22 % [facility] [address] RV/TLC% 72 % [facility] [address] RV/TLCuln 44 % [facility] [address] DLCO 16.63 ml/min/mmHg [facility] [address] DLCO% 77 % [facility] [address] DLCOlln 15.76 ml/min/mmHg [facility] DLCOc 20.09 ml/min/mmHg [facility] DLCOc% 94 % [facility] [address] VA 5.32 L [facility] [address] VA% 115 % [facility] [address] VAlln 3.76 L [facility] Height 159.00 [facility] Weight in Kg 59.70 [facility] BMI 23.6 [facility] Specimen (Source) Anatomical Collection Method Collection Time Re ceived Time Location / / Volume Laterality 10/07/2021 2:32 PM CDT Impressions [facility] - 10/10/2021 8:25 AM C DT [...] Organization Address City/State/ZIP Code Phon e Number [facility] [address] documented in this encounter Visit Diagnoses Diagnosis Cirrhosis Alcoholic (HCC) Abnormal Liver Function Test [facility] Pretransplant Recipient Evaluation Exam Preoperative Exam Cirrhosis Alcoholic (HCC) Cirrhosis Alcoholic (HCC) Hypertension Portal (HCC) documented in this encounter Additional Health Concerns Assessment Noted Time PHQ-9 Depression Total Score: 10 10/06/2021 5:00 PM CD T documented as of this encounter Care Teams Echo Vascular Tech Relationship Specialty Start Date End Date Elsewhere, Pcp PCP - General Family Medicine 03/10/20 11/30/21 [facility] [place] [facility] 08/25/21 Ervin Schroeder MD Referring Provider Family Medicine 03/24/[address] [place] [address] documented as of this encounter
--- OUTSIDE RECORDS SUMMARY | 2022-02-12 20:28 | XMS_ITS | Encounter Summary ---
:1990 Author Organization [facility] Address [address] [place] [address] Care Team Providers Name Role Phone Elsewhere, Pcp Primary Care Provider Unavailable Reason for Visit Transplant (Routine) - Closed Specialty Diagnoses / Procedures Referred By Contact Refer red To Contact Transplant Surgery / Diagnoses Cirrhosis Alcoholic (HCC) Abnormal Liver Function Test [facility] Pretransplant Recipient Evaluation Exam Preoperative Exam Warren Hernández, [facility] Transplant M.DSuma, M.P.H. [address] [place] [address] Referral ID Status Reason Start Date Expiration Date Visits Requ ested Visits Authorized [id number] Closed 08/25/2021 08/25/2022 1 1 Encounter Details Date Type Department Care Team Description 10/02/2021 Comprehensive Visit Ramirez Barajas, Cirrhosis Alcoholic (HCC); [facility], Abnormal Liver Function Test; Transplantation and MJules, Ph.D. Ascites; Clinical Regeneration [address] [place] nsplant Recipient Evaluation Exam; in [facility] Preoperative Exam [address] [facility] [phone] Social History Tobacco Use Types Packs/Day Years [...] you attend congregational or Patient refused 2021 zoroastrian services? 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 - 10/02/2021 1:00 PM CDT SUBJECTIVE HISTORY OF PRESENT ILLNESS Ms. Carias is a 31-year-old woman from [place], [place], with alcohol- associated cirrhosis. Her disease was diagnosed in fall when she fell ill and was subsequently hospitalized. It appears that several months prior to that, she started to feel more fatigued and perhaps developed encephalopathy. She quit working. She also noticed that she was getting jaundiced in March of 2021. She was hospitalized in [place] and diagnosed with cirrhosis. This is secondary [...] Dinh M.D., Ph.D. CT CT Job ID: [id number]/ documented in this encounter Plan of Treatment Upcoming Encounters Date Type Specialty Care Team Description Telemedicine Transplant 2 Appointment Radiology Matthew Jerome 2 YJoshuaBSumaBGraeme, Lilian [address] [place] [phone] Appointment Gastroenterology and Adrianne, 2 Hepatology Yue Burciaga M.D. [address] [place] [phone] Virtual Visit Transplant LuisNew abdular 2 YJoshuaBSumaBLilian Bedolla [address] [place] [phone] Office Visit Gastroenterology and [place] 2 Hepatology Tyrell Rodriguez M.D. [address] [place] [phone] Appointment Radiology Luischantell Matthew 2 YJoshuaB.B.Lilian [place] [address] [place] [phone] [facility] Gastroenterology and Queenie Matthew Cirrhos is Alcoholic (HCC) 2 Encounter Hepatology Joshua RodriguezBSumaBLilian Bedolla [address] [place] [phone] Anesthesia Event Gastroenterology and Rl, 2 Hepatology Ervin Burgos M.D. [address] [place] [phone] Surgery Gastroenterology and Matthew Jerome ESOPHAG OGASTRODUODENOSCOPY 2 Hepatology Joshua RodriguezB.B.Kath, Lilian [address] [place] [phone] Scheduled Procedures Name Priority Associated Diagnoses Date/Time ESOPHAGOGASTRODUODENOSCOPY Cirrhosis Alc oholic (HCC) 03/20/2022 8:45 AM MANAGER CONTRACT Hypertension Portal (HCC) documented as of this encounter Visit Diagnoses Diagnosis Cirrhosis Alcoholic (HCC) Abnormal Liver Function Test [facility] Pretransplant Recipient Evaluation Exam Preoperative Exam Cirrhosis Alcoholic (HCC) Cirrhosis Alcoholic (HCC) Hypertension Portal (HCC) documented in this encounter Care Teams Ladder Operator Relationship Specialty Start Date End Date Elsewhere, Pcp PCP - General Family Medicine 03/10/20 11/30/21 [facility] 08/25/21 Ervin Schroeder MD Referring Provider Family Medicine 03/24/[address] [place] [address] documented as of this encounter
--- OUTSIDE RECORDS SUMMARY | 2022-02-12 20:28 | XMS_ITS | Encounter Summary ---
:1990 Author Organization [facility] Address [address] [place] [address] Care Team Providers Name Role Phone Elsewhere, Pcp Primary Care Provider Unavailable Reason for Referral Transplant (Routine) - Closed Specialty Diagnoses / Procedures Referred By Contact Refer red To Contact Transplant Surgery / Adeline Frazier [facility] Transplant Lilian Gannon, Ph.D. [address] [place] [phone] Referral ID Status Reason Start Date Expiration Date Visits Requ ested Visits Authorized [id number] Closed 10/10/2021 10/10/2022 1 1 Reason for Visit Transplant (Routine) - Closed Specialty Diagnoses / Procedures Referred By Contact Refer red To Contact Transplant Surgery / Diagnoses Cirrhosis Alcoholic (HCC) Abnormal Liver Function Test Ascites Pretransplant Recipient Evaluation Exam Preoperative Exam Warren Hernández [facility] Transplant Lilian, M.P.H. [address] [place] [address] Referral ID Status Reason Start Date Expiration Date Visits Requ ested Visits Authorized [id number] Closed 08/25/2021 08/25/2022 1 1 Encounter Details Date Type Department Care Team Description 10/10/2021 Telemedicine Warren Carter M.D., M.P.H. [address] [place], [place] [phone] Alcohol Moderate Or Severe Use Disorder (Dependence) Uncomplicated (HCC) (Primary Dx); [facility] Cannabis Use Unspecified Uncomplicated; Transplantation and Long Ter m Use Of Opiate Analgesic; Clinical Regeneration in [place] otine Dependence Cigarettes; [place], [place] Mood Disorder (HCC); [address] [facility] Anxiety Disorder Unspecified ; [place] [address] Eating Disorder; [phone] Hepatic Encepha lopathy Without Coma (HCC); Chronic [...] attend oriental orthodox or Patient refused 2021 islam services? 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 - 10/10/2021 8:00 AM CDT Service Date: 10/10/21 DEMOGRAPHICS Patient: Catia Carias Date of : 1990 Age: 31 y.o. Gender: female Address: [address] [place] [phone] Referral source: Liver Transplant Team. Consult conducted via real-time audio/video technology by Dr. Marva Frazier and Zenobia Hollingsworth MA, [facility] in [facility] to the patient in patient's home. CIRCUMSTANCES OF SERVICE INITIATION / REASON FOR REFERRAL Pre-Liver transplant addiction psychiatry evaluation. HISTORY OF PRESENT ILLNESS Ms. Catia Bourgeois is??a very pleasant 31 y.o. partnered female under consideration for liver transplantation. The patient has a history of anxiety, depression, eating disorder and chronic pain. She was previously seen by Radhames Neumann, Ph.D., L.P. in [place] [facility] (Pain Kati abilitation) on 10/06/2021 [...] in the past 30 days? No. OTHER Ptoy-ilj-Dmooiqi: No. Other: No. Compulsive behaviors: No history [...] visit. SOCIAL HISTORY provided by Joel Tan [facility] [place] REPORT DEVELOPER Pager: [phone] note dated 09/29/2021. Today, the information below was reviewed, verified and updated with the patient. Family of Origin: Family of origin: The patient was raised in [place], [place]. Her parents when she was 20 years old. Her mother remarried. The patient calls her step- father, Siva, her bonus father. The patient's mother and step-father live in [place], [place]. The patient's father did not remarry. He lives in [place], [place], which is 10-12 minutes from the [...] Degree. The patient has her associates of mSchool degree in photography. Employment: Disabled: The patient was previously worked at [employer] in [place] until January 2021 when she became ill. History: No background. Spirituality / Buddhist / Culture: Describe spiritual beliefs: Patient does not identify with any islam or spiritual beliefs. 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 in [place] [facility] (Pain Rehabilitation), 10/06/2021: - virtual [...] in the patient's local community and at [facility]. - A handout about accessing online recovery meetings such as AA, NA, [facility], etc. - A set of forms to [...] of liver decompensation - inpatient hospitalization at [place] 03/2021; MELD-Na score: 32 at 09/30/2021 4. [...] records, discussing case with Zenobia Hollingsworth MA, [facility], documenting results of evaluation and treatment recommendations as well as counseling and coordination of care. Collateral information: Collateral information not needed at this time. Electronically signed by: Zenobia Hollingsworth M.A., Nathalie 10/10/21 documented in this encounter Plan of Treatment Upcoming Encounters Date Type Specialty Care Team Description Telemedicine Transplant 2 Appointment Radiology LuisMatthew abdul 2 Tyrell Rodriguez M.D. [address] [place] [phone] Appointment Gastroenterology and Adrianne, 2 Hepatology Yue Burciaga M.D. [address] [place] [phone] Virtual Visit Transplant LuisMatthew abdul 2 Tyrell Rodriguez M.D. [address] [place] [phone] Office Visit Gastroenterology and LuisMatthew abdul 2 Hepatology Tyrell Rodriguez M.D. [address] [place] [phone] Appointment Radiology LuisNew abdular 2 Tyrell Rodriguez M.D. [address] [place] [phone] Hospital Gastroenterology and Matthew Jerome Cirrhos is Alcoholic (HCC) 2 Encounter Hepatology Tyrell Rodriguez M.D. [address] [place] [phone] Anesthesia Event Gastroenterology and Rl, 2 Hepatology Ervin Burgos M.D. [address] [place] [phone] Surgery Gastroenterology and Mousa, Matthew ESOPHAG OGASTRODUODENOSCOPY 2 Hepatology Tyrell Rodriguez M.D. [address] [place] [phone] Pending Results Name Type Priority Associated Diagnoses Date/Ti me Ethyl Glucuronide Lab Routine Alcohol Moderate Or Sev ere 02/12/2022 10:29 AM Confirmation, Random, Use Disorder (Depen dence) CDT Urine Uncomplicated (HCC) Scheduled Orders Name Type Priority Associated Diagnoses Order S chedule Ethyl Glucuronide Lab Routine Alcohol Moderate Or Sev ere Expected: 10/10/2021 Confirmation, Random, Use Disorder (Depen dence) (Approximate), Urine Uncomplicated (HCC) Expires: 01/10/2023 Scheduled Procedures Name Priority Associated Diagnoses Date/Time ESOPHAGOGASTRODUODENOSCOPY Cirrhosis Alc oholic (HCC) 03/20/2022 8:45 AM INFORMATION TECHNOLOGY TECHNICIAN Hypertension Portal (HCC) Scheduled Referrals Name [...] Number [facility] [address] [place], [place] [address] SUPPORT CENTER [facility] [place] [address] Laboratory Medicine and Pathology [address] [place] Ethyl Glucuronide Confirmation, Random, Urine (12/15/2021 5:51 PM CDT) [facility] Method Time Signature Ethyl Glucuronide Negative Cutoff: 12/17/2021 [facility] Confirmation, U 250 ng/mL 10:34 AM CDT Ethyl Sulfate Negative Cutoff: 12/17/2021 [facility] ng/mL 10:34 AM CDT Ethyl Gluc/Sulfate Negative. 12/17/2021 [facility] Interpretation 10:34 AM CDT Comment: ----ADDITIONAL INFORMATION---- This report is intended for use in clini ada monitoring and management of patients. ??It is not intended for use i n employment-related testing. This test was developed and its performa nce characteristics determined by [facility] in a manner consistent with [...] Number [facility] [address] [place], [place] [address] SUPPORT CENTER [facility] [place] [address] Laboratory Medicine and Pathology [address] [place] Phosphatidylethanol (Peth), whole blood- Sent Out Lab (12/15/2021 5:39 PM CDT) Component Value Ref Range Test Analysis Performed Pathologis t Method Time At Signature Phosphatidylethanol NEGATIVE NEGATIVE 12/26/2021 [facility] (PEth) ng/mL 1:01 PM CDT Comment: Analyzed compound: PEth 16:0/18:1. ? 5-hulllxnqn-5-njgmhb-uv-sntzjuj-3 -phosphoethanol. ? Analysis performed by Liquid Chromatogra [...] Organization Address City/State/ZIP Code Phon e Number [employer] [address] [place], [place] [address] [place] [address] [address] [facility] documented in this encounter Visit Diagnoses Diagnosis Alcohol Moderate Or Severe Use Disorder (Dependence) Uncomplicated (HCC) - Primary Cannabis Use Unspecified Uncomplicated Senior Care Use Of Opiate Analgesic Nicotine Dependence Cigarettes [...] documented as of this encounter Care Teams Asphalt Paving Supervisor Relationship Specialty Start Date End Date Elsewhere, Pcp PCP - General Family Medicine 03/10/20 11/30/21 [facility] [place] lab 08/25/21 Ervin Schroeder MD Referring Provider Family Medicine 03/24/[address] [place] [address] [phone] documented as of this encounter
--- OUTSIDE RECORDS SUMMARY | 2022-02-12 20:28 | XMS_ITS | Encounter Summary ---
:1990 Author Organization [facility] Address [address] [place] [address] Care Team Providers Name Role Phone Elsewhere, Pcp Primary Care Provider Unavailable Reason for Referral Behavioral Health (Routine) - Canceled Specialty Diagnoses / Procedures Referred By Contact Refer red To Contact Diagnoses Pain Leg Bilateral Radhames Neumann, [facility] Procedures Complex persistent pain program Ph.D., L.P. [address] [place] [phone] Referral ID Status Reason Start Date Expiration Date Visits V isits Requested Authorized [id number] Canceled 10/06/2021 10/06/2022 1 1 Reason for Visit Transplant (Routine) - Authorized Specialty Diagnoses / Procedures Referred By Contact Refer red To Contact Transplant Surgery / Diagnoses Cirrhosis Alcoholic (HCC) Abnormal Liver Function Test Ascites Pretransplant Recipient Evaluation Exam Preoperative Exam Warren Hernández, [facility] Transplant M.Jeri, M.P.H. [address] [place] [address] Referral ID Status Reason Start Date Expiration Date Visits V isisocrates Requested Authorized [id number] Authorized 08/25/2021 08/25/2022 1 1 Encounter Details Date Type Department Care Team Description 10/06/2021 Comprehensive Visit Warren Middleton M.D., M.P.H. [address] [place] [address] Pain Leg Bilateral (Primary Dx); [facility] Radhames Neumann, Ph.D., L.P. [address] [place] [phone] Cirrhosis Alcoholic (HCC); Transplantation and Abnormal Liver Function Test; Clinical Regeneration Ascite s; in [place], Pretransplant Recipient Evaluation Exam; [place] Preoperative Exam [address] [place] [phone] Social History Tobacco Use Types Packs/Day Years [...] you attend voodoo or Patient refused 2021 buddhist services? Do [...] or the highest technical, or vocational p [facility] degree you have received? 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 [...] at age 19 Overuse of prescribed or bwip-gih-puovsgi medication: none. She notes she never runs [...] Appointment Radiology Matthew Jerome 2 YTyrell, Lilian [address] [place] [phone] Appointment Gastroenterology and Adrianne, 2 Hepatology Yue Burciaga M.D. [address] [place] [phone] Virtual Visit Transplant Matthew Jerome 2 YTyrell M.D. [address] [place] [phone] Office Visit Gastroenterology and Matthew Jerome 2 Hepatology Tyrell Rodriguez M.D. [address] [place] [phone] Appointment Radiology Matthew Jerome 2 Tyrell Rodriguez M.D. [address] [place] [phone] [facility] Gastroenterology and Queenie Matthew Cirrhos is Alcoholic (HCC) 2 Encounter Hepatology Tyrell Rodriguez M.D. [address] [place] [phone] Anesthesia Event Gastroenterology and [facility] 2 Hepatology Ervin Burgos M.D. [address] [place] [phone] Surgery Gastroenterology and Queenie Matthew ESOPHAG OGASTRODUODENOSCOPY 2 Hepatology Tyrell Rodriguez M.D. [address] [place] [phone] Scheduled Procedures Name Priority Associated Diagnoses Date/Time ESOPHAGOGASTRODUODENOSCOPY Cirrhosis Alc oholic (HCC) 03/20/2022 8:45 AM REGIONAL SALES REPRESENTATIVE Hypertension Portal (HCC) documented as of this [...] as of this encounter Care Teams Commercial Baker Helper Relationship Specialty Start Date End Date Elsewhere, Pcp PCP - General Family Medicine 03/10/20 11/30/21 [facility] [place] lab 08/25/21 Ervin Schroeder MD Referring Provider Family Medicine 03/24/[address] [place] [address] documented as of this encounter
--- OUTSIDE RECORDS SUMMARY | 2022-02-12 20:28 | XMS_ITS | Encounter Summary ---
:1990 Author Organization [facility] Address [address] [place] [address] Care Team Providers Name Role Phone Elsewhere, Pcp Primary Care Provider Unavailable Encounter Details Date Type Department Care Team Description 10/15/2021 Documentation Department of Gastroenterology [place] in [place], Kaelyn Santillan M.D. 1025 [facility] [address] [place] [phone] [place], [place] [phone] Social History Tobacco Use Types Packs/Day [...] you attend mosque or Patient refused 2021 advent services? Do you belong to any clubs or No 02/10/2022 organizations such as mosque groups, unions, fraAdvanced Patient Care or athletic groups, or school groups? 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 Diagnosis (Check all that apply) XAlcohol ? PSC ? HCC ? HPS ? Budd Chiari ? FHF ? Biliary Atresia ? HCV ? PBC ? CCA ? PoPH ? Hemo-chromatosis ? PNF ? PFIC ? HBV ? AIH ? Neuro Endocrine Tumor ? FAP ? M3QO-Sqjuvisvau ? HAT ? Cystic Fibrosis ? MEJIA [...] on her own after a trip to [place] last July 2020, but could not remember why she decided to. Prior to that she had 4 episodes of recurrent pancreatitis. She states that the 1st illness she had was after a trip to [place] when she had abdominal pain and she [...] saline contrast injection. Patent foramen ovale with ugjze-wy-ibpk shunt , 20 or greater bubbles seen [...] Transplant 2 Appointment Radiology Queenie Matthew 2 YTyrell M.D. [address] [place] [phone] Appointment Gastroenterology demian Silver 2 Hepatology Yue Burciaga M.D. [address] [place] [phone] Virtual Visit Transplant Luischantell Matthew 2 YTyrell M.D. [address] [place] [phone] Office Visit Gastroenterology and Matthew Jerome 2 Hepatology Tyrell Rodriguez M.D. [address] [place] [phone] Appointment Radiology Matthew Jerome 2 YTyrell M.D. [address] [place] [phone] Hospital Gastroenterology and QueenieMatthew Cirrhos is Alcoholic (HCC) 2 Encounter Hepatology Tyrell Rodriguez M.D. [address] [place] [phone] Anesthesia Event Gastroenterology and Rl, 2 Hepatology Evrin Burgos M.D. [address] [place] [phone] Surgery Gastroenterology and Matthew Jerome ESOPHAG OGASTRODUODENOSCOPY 2 Hepatology Vik RodriguezLilian Salas [facility] [place] [phone] Scheduled Procedures Name Priority Associated Diagnoses Date/Time ESOPHAGOGASTRODUODENOSCOPY Cirrhosis Alc oholic (HCC) 03/20/2022 8:45 AM CYBER SYSTEMS ADMINISTRATOR Hypertension Portal (HCC) documented as of this encounter Visit Diagnoses Not on filedocumented in this encounter Additional Health Concerns Assessment Noted Time PHQ-9 Depression Total Score: 10 10/06/2021 5:00 PM CD T documented as of this encounter Care Teams Visual Aid Expert Relationship Specialty Start Date End Date Elsewhere, Pcp PCP - General Family Medicine 03/10/20 11/30/21 [facility] [place] lab 08/25/21 Ervin Schroeder MD Referring Provider Family Medicine 03/24/[address] [place] [phone] documented as of this encounter
--- OUTSIDE RECORDS SUMMARY | 2022-02-12 20:28 | XMS_ITS | Encounter Summary ---
:1990 Author Organization [facility] Address [address] [place] [address] Care Team Providers Name Role Phone Elsewhere, Pcp Primary Care Provider Unavailable Reason for Referral Outpatient (Routine) - Closed Specialty Diagnoses / Procedures Referred By Contact Refer red To Contact Diagnoses Cirrhosis Alcoholic (HCC) Abnormal Liver Function Test Ascites Pretransplant Recipient Evaluation Exam Preoperative Exam Warren Hernández M.D., [facility] Procedures Short renal clearance: Iothalamate (Renal Studies Unit) M.P.H. [address] [place] [address] Referral ID Status Reason Start Date Expiration Date Visits Requ ested Visits Authorized [id number] Closed 08/25/2021 08/25/2022 1 1 Reason for Visit Outpatient (Routine) - Closed Specialty Diagnoses / Procedures Referred By Contact Refer red To Contact Diagnoses Cirrhosis Alcoholic (HCC) Abnormal Liver Function Test Ascites Pretransplant Recipient Evaluation Exam Preoperative Exam Warren Hernández M.D., [place] Procedures Short renal clearance: Iothalamate (Renal Studies Unit) M.P.H. 200 [place] [address] Referral ID Status Reason Start Date Expiration Date Visits Requ ested Visits Authorized [id number] Closed 08/25/2021 08/25/2022 1 1 Encounter Details Date Type Department Care Team Description 10/03/2021 Hospital Encounter Department of Edgar, Travosi s Alcoholic (HCC); Laboratory Medicine Warren Schaefer M.D., [facility] Liver Function Test; and Pathology, M.P.H. Ascites; [place] [address] [place] [address] Pretransplant Recipient Evaluation Exam; Building, in [place], [place] Preoperative E xam [address] [phone] [address] [facility] (Work) [place], [place] [phone] (Fax) [phone] Social History Tobacco Use Types Packs/Day Years [...] you attend holiness or Patient refused 2021 adventism services? 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 [address] [place] [phone] Virtual Visit Transplant Matthew Jerome 2 YVikBGraeme, Lilian [address] [place] [phone] Office Visit Gastroenterology and Matthew Jerome 2 Hepatology YJoshuaBSumaBLilian Bedolla [address] [place] [phone] Appointment Radiology Matthew Jerome 2 YJoshuaBSumaBLilian Bedolla [address] [place] [phone] Hospital Gastroenterology and Mousa, Matthew Cirrhos is Alcoholic (HCC) 2 Encounter Hepatology Tyrell Rodriguez M.D. [address] [place] [phone] Anesthesia Event Gastroenterology and Rl, 2 Hepatology Ervin Burgos M.D. [address] [place] [phone] Surgery Gastroenterology and Mousa, Matthew ESOPHAG OGASTRODUODENOSCOPY 2 Hepatology Tyrell Rodriguez M.D. [address] [place] [phone] Scheduled Orders Name Type Priority Associated Diagnoses Order S chedule Short renal clearance: Procedures Routine Cirrhosis Alcoholi c Once for 1 Occurrences Iothalamate (Renal (HCC) starting 10/03/2021 Studies Unit) Abnormal Liver until 2021 Function Test Ascites Pretransplant Recipient Evaluation Exam Preoperative Exam Scheduled Procedures Name Priority Associated Diagnoses Date/Time ESOPHAGOGASTRODUODENOSCOPY Cirrhosis Alc oholic (HCC) 03/20/2022 8:45 AM GARMENT MENDER Hypertension Portal (HCC) documented as of this [...] and its performa nce characteristics determined by [facility] in a manner consistent with CLIA requirements. This test has not been cleared or approved by the [place] d and Drug Administration. Specimen Anatomical Collection Method Collection Time Receive d Time (Source) Location / / Volume Laterality Varies (Blood, 10/03/2021 11:18 2 Venous) AM CDT 12:59 PM CDT Narrative [facility] [place] - 10/06/2021 2:59 PM CDT Specimen Information: Specimen ID: [id number] Specimen Type: Varies Specimen Collection Start Date: 11:18 AM Specimen Received Date: 10/03/2021 12:59 PM Specimen ID: [id number] Specimen Type: Varies Specimen Collection Start Date: 12:07 PM Specimen Received Date: 10/03/2021 12:59 PM Specimen ID: [id number] Specimen Type: Varies Specimen Collection Start Date: 12:41 PM Specimen Received Date: 10/03/2021 12:59 PM Specimen ID: [id number] Specimen Type: Varies Specimen Collection Start Date: 12:10 PM Specimen Received Date: 10/03/2021 12:59 PM Specimen ID: [id number] Specimen Type: Varies Specimen Collection Start Date: 12:43 PM Specimen Received Date: 10/03/2021 12:59 PM Warren Hernández M.D., M.P.H. LAB BLOOD NON ADD-ON Performing Organization Address City/State/ZIP Code Phon e Number [address] [address] [place] [address] [facility] [address] [...] dose documented in this encounter Care Teams Battalion Fire Chief Relationship Specialty Start Date End Date Elsewhere, Pcp PCP - General Family Medicine 03/10/20 11/30/21 [facility] 08/25/21 Ervin Schroeder MD Referring Provider Family Medicine 03/24/[address] [place] [phone] documented as of this encounter
--- OUTSIDE RECORDS SUMMARY | 2022-02-12 20:28 | XMS_ITS | Encounter Summary ---
:1990 Author Organization [facility] Address [address] [place] [address] Care Team Providers Name Role Phone Elsewhere, Pcp Primary Care Provider Unavailable Reason for Visit Reason Comments Edema Encounter Details Date Type Department Care Team Description 10/13/2021 Nurse Triage [facility] Department of Nola Polanco R .N. [facility] Family Medicine and Residency in [place], [place] [address] [place] [phone] Social History Tobacco Use Types Packs/Day [...] you attend moravian or Patient refused 2021 restorationism services? 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 [address] [place] [address] [phone] Appointment Gastroenterology demian Silver, 2 Hepatology Yue Burciaga M.D. [address] [place] [phone] Virtual Visit Transplant Matthew Jerome 2 YTyrell M.D. [address] [place] [address] [phone] Office Visit Gastroenterology and Matthew Jerome 2 Hepatology Tyrell Rodriguez M.D. [address] [place] [address] [phone] Appointment Radiology Matthew Jerome 2 YTyrell M.D. [address] [place] [address] [phone] Hospital Gastroenterology and Matthew Jerome Cirrhos is Alcoholic (HCC) 2 Encounter Hepatology Tyrell Rodriguez M.D. [address] [place] [address] [phone] Anesthesia Event Gastroenterology and Rl, 2 Hepatology Ervin Burgos M.D. [address] [place] [address] [phone] Surgery Gastroenterology and Mousa, Matthew ESOPHAG OGASTRODUODENOSCOPY 2 Hepatology Tyrell Rodriguez M.D. [address] [place] [phone] Scheduled Procedures Name Priority Associated Diagnoses Date/Time ESOPHAGOGASTRODUODENOSCOPY Cirrhosis Alc oholic (HCC) 03/20/2022 8:45 AM MANAGER RISK MANAGEMENT Hypertension Portal (HCC) documented as of this encounter Visit Diagnoses Not on filedocumented in this encounter Additional Health Concerns Assessment Noted Time PHQ-9 Depression Total Score: 10 10/06/2021 5:00 PM CD T documented as of this encounter Care Teams Ultrasound Technologist Sonographer Relationship Specialty Start Date End Date Elsewhere, Pcp PCP - General Family Medicine 03/10/20 11/30/21 [facility] [place] [facility] 08/25/21 Ervin Schroeder MD Referring Provider Family Medicine 03/24/[address] [place] [address] documented as of this encounter
--- OUTSIDE RECORDS SUMMARY | 2022-02-12 20:28 | XMS_ITS | Encounter Summary ---
:1990 Author Organization [facility] Address [address] [place] [address] Care Team Providers Name Role Phone Elsewhere, Pcp Primary Care Provider Unavailable Reason for Visit Transplant (Routine) - Closed Specialty Diagnoses / Procedures Referred By Contact Refer red To Contact Transplant Surgery / Diagnoses Cirrhosis Alcoholic (HCC) Abnormal Liver Function Test Ascites Pretransplant Recipient Evaluation Exam Preoperative Exam Warren Hernández, [facility] Transplant M.D., M.P.H. [address] [place] [address] Referral ID Status Reason Start Date Expiration Date Visits Requ ested Visits Authorized [id number] Closed 08/25/2021 08/25/2022 1 1 Encounter Details Date Type Department Care Team Description 10/02/2021 Comprehensive Visit Ramirez Adler, Cirrhosis Alcoholic (HCC); [facility] [place], Abnormal Liver Function Test; Transplantation and M.D. Ascites; Clinical Regeneration [address] [place] [address] Pretransplant Recipient Evaluation Exam; in [place], [place] Preoperative Exam [place] [address] [place] [address] [place], [place] (Work) [address] [phone] Social History Tobacco Use Types Packs/Day Years [...] you attend cheondoism or Patient refused 2021 jew services? 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 [address] [place] [phone] Appointment Gastroenterology and Adrianne, 2 Hepatology Yue Burciaga M.D. [address] [place] [phone] Virtual Visit Transplant Matthew Jerome 2 YTyrell M.D. [address] [place] [address] [phone] Office Visit Gastroenterology and [facility] Matthew 2 Hepatology Tyrell Rodriguez M.D. [address] [place] [phone] Appointment Radiology [facility] Matthew 2 Tyrell Rodriguez M.D. [address] [place] [phone] [facility] Gastroenterology and [facility] Cirrhos is Alcoholic (HCC) 2 Encounter Hepatology Tyrell Rodriguez M.D. [address] [place] [phone] Anesthesia Event Gastroenterology and Rl, 2 Hepatology Ervin Burgos M.D. [address] [place] [address] [phone] Surgery Gastroenterology and [facility] ESOPHAG OGASTRODUODENOSCOPY 2 Hepatology Tyrell Rodriguez M.D. [address] [place] [phone] Scheduled Procedures Name Priority Associated Diagnoses Date/Time ESOPHAGOGASTRODUODENOSCOPY Cirrhosis Alc oholic (HCC) 03/20/2022 8:45 AM LAN SPECIALIST Hypertension Portal (HCC) documented as of this encounter Visit Diagnoses Diagnosis Cirrhosis Alcoholic (HCC) Abnormal Liver Function Test Ascites Pretransplant Recipient Evaluation Exam Preoperative Exam Cirrhosis Alcoholic (HCC) Cirrhosis Alcoholic (HCC) Hypertension Portal (HCC) documented in this encounter Care Teams Grid Molder Relationship Specialty Start Date End Date Elsewhere, Pcp PCP - General Family Medicine 03/10/20 11/30/21 [facility] [place] [facility] 08/25/21 Ervin Schroeder MD Referring Provider Family Medicine 03/24/[address] [place] [address] documented as of this encounter
--- OUTSIDE RECORDS SUMMARY | 2022-02-12 20:28 | XMS_ITS | Encounter Summary ---
:1990 Author Organization [facility] Address [address] [place] [address] Care Team Providers Name Role Phone Elsewhere, Pcp Primary Care Provider Unavailable Reason for Referral Outpatient (Routine) - Closed Specialty Diagnoses / Procedures Referred By Contact Refer red To Contact Diagnoses Cirrhosis Alcoholic (HCC) Abnormal Liver Function Test Ascites Pretransplant Recipient Evaluation Exam Preoperative Exam Warren Hernández M.D., [facility] [place] Procedures BMD Bone Density Spine Hips M.P.H. [address] [place] [address] Referral ID Status Reason Start Date Expiration Date Visits Requ ested Visits Authorized [id number] Closed 08/25/2021 08/25/2022 1 1 Reason for Visit Outpatient (Routine) - Closed Specialty Diagnoses / Procedures Referred By Contact Refer red To Contact Diagnoses Cirrhosis Alcoholic (HCC) Abnormal Liver Function Test Ascites Pretransplant Recipient Evaluation Exam Preoperative Exam Warren Hernández M.D., [facility] [place] Region Procedures BMD Bone Density Spine Hips M.P.H. [address] [place] [address] Referral ID Status Reason Start Date Expiration Date Visits Requ ested Visits Authorized [id number] Closed 08/25/2021 08/25/2022 1 1 Encounter Details Date Type Department Care Team Description 10/09/2021 Hospital Encounter Department of Edgar, Cirrhosi s Alcoholic (HCC); Radiology, Warren Schaefer M.D., Abnormal Angelica er Function Test; [facility], M.P.H. Ascites; in [place], [address] [place] [address] Pretransplant Recipient Evaluation Exam; [place], [place] Preoperative Exam [address] [address] [place] [phone] [place], [place] (Work) [phone] Social History Tobacco Use [...] you attend lutheran or Patient refused 2021 bahai services? 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 [address] [place] [address] [phone] Appointment Gastroenterology demian Silver, 2 Hepatology Yue Burciaga M.D. [address] [place] [phone] Virtual Visit Transplant LuisNew abdular 2 YTyrell M.D. [address] [place] [address] [phone] Office Visit Gastroenterology and LuisNew abdular 2 Hepatology Tyrell Rodriguez M.D. [address] [place] [address] [phone] Appointment Radiology LuisNew abdular 2 YJoshuaBLilian Staples [address] [place] [phone] Hospital Gastroenterology and LuisMatthew abdul Cirrhos is Alcoholic (HCC) 2 Encounter Hepatology Tyrell Rodriguez M.D. [address] [place] [address] [phone] Anesthesia Event Gastroenterology and Rl, 2 Hepatology Ervin Burgos M.D. [address] [place] [phone] Surgery Gastroenterology and Mousa, Matthew ESOPHAG OGASTRODUODENOSCOPY 2 Hepatology Tyrell Rodriguez M.D. [address] [place] [phone] Scheduled Procedures Name Priority Associated Diagnoses Date/Time ESOPHAGOGASTRODUODENOSCOPY Cirrhosis Alc oholic (HCC) 03/20/2022 8:45 AM DIRECTOR OF COMPENSATION Hypertension Portal (HCC) documented as of this [...] Mineral Density (BMD) analysis perf ormed on [employer] with serial number [id number]. ? FINDINGS: Left Hip: Femur Neck: BMD [...] Mineral Density (BMD) analysis perf ormed on [employer] with serial number [id number]. FINDINGS: Left Hip: Femur Neck: BMD = [...] - General Family Medicine 03/10/20 11/30/21 [facility] [place] [facility] 08/25/21 Ervin Schroeder MD Referring Provider Family Medicine 03/24/[address] [place] [address] documented as of this encounter
--- OUTSIDE RECORDS SUMMARY | 2022-02-12 20:28 | XMS_ITS | Encounter Summary ---
:1990 Author Organization [facility] Address [address] [place] [address] Care Team Providers Name Role Phone Elsewhere, Pcp Primary Care Provider Unavailable Encounter Details Date Type Department Care Team Description 10/08/2021 Clinical Communication Department of [facility] Gastroenterology in [place], [place] L.P.N. 1025 [facility] 1025 [place] [address] [place], [place] [phone] Social History Tobacco Use Types Packs/Day [...] you attend christian or Patient refused 2021 druze services? 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 [address] [place] [phone] Appointment Gastroenterology and Adrianne, 2 Hepatology Yue Burciaga M.D. [address] [place] [phone] Virtual Visit Transplant LuisMatthew abdul 2 Vik RodriguezBLilian Bedolla [address] [place] [phone] Office Visit Gastroenterology and Matthew Jerome 2 Hepatology Joshua RodriguezBSumaBLilian Bedolla [address] [place] [phone] Appointment Radiology Matthew Jerome 2 Joshua RodriguezB.BLilian Bedolla [address] [place] [phone] Hospital Gastroenterology and Matthew Jerome Cirrhos is Alcoholic (HCC) 2 Encounter Hepatology Joshua RodriguezB.BLilian Bedolla [address] [place] [phone] Anesthesia Event Gastroenterology and Rl, 2 Hepatology Ervin Burgos M.D. [address] [place] [address] [phone] Surgery Gastroenterology and Matthew Jerome ESOPHAG OGASTRODUODENOSCOPY 2 Hepatology Joshua RodriguezB.B.Lilian Stockton [address] [place] [phone] Scheduled Procedures Name Priority Associated Diagnoses Date/Time ESOPHAGOGASTRODUODENOSCOPY Cirrhosis Alc oholic (HCC) 03/20/2022 8:45 AM HARD ROCK MINER Hypertension Portal (HCC) documented as of this encounter Visit Diagnoses Not on filedocumented in this encounter Additional Health Concerns Assessment Noted Time PHQ-9 Depression Total Score: 10 10/06/2021 5:00 PM CD T documented as of this encounter Care Teams Special Police Officer Relationship Specialty Start Date End Date Elsewhere, Pcp PCP - General Family Medicine 03/10/20 11/30/21 [facility] 08/25/21 Ervin Schroeder MD Referring Provider Family Medicine 03/24/[address] [place] [address] documented as of this encounter
--- OUTSIDE RECORDS SUMMARY | 2022-02-12 20:28 | XMS_ITS | Encounter Summary ---
:1990 Author Organization [facility] Address [address] [place] [address] Care Team Providers Name Role Phone Elsewhere, Pcp Primary Care Provider Unavailable Reason for Visit Reason Comments Appointment [facility] FA Encounter Details Date Type Department Care Team Description 10/10/2021 Clinical Ramirez Barajas, Camron coreas ([facility] Communication Center for PRANEETH Rowland) Transplantation and Lilian, Ph.D. Clinical [facility] [address] [facility] [address] [facility] [phone] Social History Tobacco Use Types Packs/Day Years [...] you attend sikhism or Patient refused 2021 episcopal services? Do you belong to any clubs or No 02/10/2022 organizations such as sikhism groups, unions, fraTandem or athletic groups, or school groups? How [...] or the highest technical, or vocational p franciscan health degree you have received? Sex Assigned [...] 2 Appointment Radiology Matthew Jerome 2 Y, MSumaB.BLilian Bedolla [address] [place] [phone] Appointment Gastroenterology and Adrianne, 2 Hepatology Yue Burciaga M.D. [address] [place] [phone] Virtual Visit Transplant Luischantell Matthew 2 YTyrell M.D. [address] [place] [phone] Office Visit Gastroenterology and Matthew Jerome 2 Hepatology Tyrell Rodriguez M.D. [address] [place] [phone] Appointment Radiology Matthew Jerome 2 Tyrell Rodriguez M.D. [address] [place] [phone] [facility] Gastroenterology and Matthew Jerome Cirrhos is Alcoholic (HCC) 2 Encounter Hepatology Tyrell Rodriguez M.D. [address] [place] [phone] Anesthesia Event Gastroenterology and Rl, 2 Hepatology Ervin Burgos M.D. 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
--- OUTSIDE RECORDS SUMMARY | 2022-02-12 20:28 | XMS_ITS | Encounter Summary ---
:1990 Author Organization [facility] Address [address] [place] [address] Care Team Providers Name Role Phone Elsewhere, Pcp Primary Care Provider Unavailable Encounter Details Date Type Department Care Team Description 10/09/2021 Clinical Communication Ramirez [facility] , [place]id [place], Transplantation and Lilian Clinical Regeneration in [address] [place] [address] [place] [phone] [place] [phone] Social History Tobacco Use Types Packs/Day Years [...] you attend restoration or Patient refused 2021 yazidism services? 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 [address] [place] [phone] Virtual Visit Transplant Matthew Jerome 2 YTyrell M.D. [address] [place] [phone] Office Visit Gastroenterology and Matthew Jerome 2 Hepatology Tyrell Rodriguez M.D. [address] [place] [phone] Appointment Radiology Matthew Jerome 2 Tyrell Rodriguez M.D. [address] [place] [phone] Hospital Gastroenterology and Queenie Matthew Cirrhos is Alcoholic (HCC) 2 Encounter Hepatology Tyrell Rodriguez M.D. [address] [place] [phone] Anesthesia Event Gastroenterology and [facility], 2 Hepatology Ervin Burgos M.D. 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
--- OUTSIDE RECORDS SUMMARY | 2022-02-12 20:29 | XMS_ITS | Encounter Summary ---
:1990 Author Organization [facility] Address [address] [place] [address] Care Team Providers Name Role Phone Elsewhere, [...] and Lateral 2 Views M.P.H. [address] [place] [address] Referral ID Status Reason Start Date Expiration Date Visits Requ ested Visits Authorized [id number] Closed 09/08/2021 09/08/2022 1 1 Reason for Visit Outpatient (Routine) - Closed Specialty Diagnoses / Procedures Referred By Contact Refer red To Contact Diagnoses Fatty Liver Failure Liver (HCC) Cirrhosis Alcoholic (HCC) Preoperative Exam Ascites Abnormal Liver Function Test Warren Hernández M.D., [facility] Region Procedures DX Chest AP or PA and Lateral 2 Views M.P.H. [address] [place] [address] Referral ID Status Reason Start Date Expiration Date Visits Requ ested Visits Authorized [id number] Closed 09/08/2021 09/08/2022 1 1 Encounter Details Date Type Department Care Team Description 09/22/2021 Hospital Encounter Department of Deena Hernández fred; Radiology, [place] Warren Schaefer M.D., Greg segal Liver (HCC); [facility], in M.P.H. Cirrhosis Alcoholic (HCC); [place], [place] [address] [facility] Preoperative Exam; [address]25 [place], [place] Ascites; [place] [address] Abnormal Liver Function Test [phone] Social History [...] you attend gnosticism or Patient refused 2021 confucianism services? 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 [address] [place] [phone] Appointment Gastroenterology demian Silver 2 Hepatology Yue Segal M.D. [address] [place] [phone] Virtual Visit Transplant Matthew Jerome 2 YTyrell M.D. [address] [place] [phone] Office Visit Gastroenterology and Matthew Jerome 2 Hepatology Tyrell Rodriguez M.D. [address] [place] [phone] Appointment Radiology Matthew Jerome 2 YTyrell M.D. [address] [place] [phone] Hospital Gastroenterology and Queenie Matthew Cirrhos is Alcoholic (HCC) 2 Encounter Hepatology Vik RodriguezBLilian Bedolla [address] [place] [phone] Anesthesia Event Gastroenterology and Rl, 2 Hepatology Ervin Burgos M.D. 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
--- OUTSIDE RECORDS SUMMARY | 2022-02-12 20:29 | XMS_ITS | Encounter Summary ---
:1990 Author Organization [facility] Address [address] [place] [address] Care Team Providers Name Role Phone Elsewhere, Pcp Primary Care Provider Unavailable Reason for Visit Reason Comments [facility] MED REQUEST Encounter Details Date Type Department Care Team Description 10/01/2021 Clinical Communication Department of KACY Crain MED REQUEST Nicotine Jessy Gannon M.A., [place], C.T.T.S. [facility], [address] [place] [address] in [facility] [phone] [place] [address] [place] (Work) [phone] Social History Tobacco Use Types Packs/Day Years [...] you attend religious or Patient refused 2021 mormon services? Do you belong to any clubs or No 02/10/2022 organizations such as religious groups, unions, [email or web address] or athletic groups, or school groups? How [...] CASE MANAGER documented as of this encounter Miscellaneous Notes Telephone Encounter - Jessy Crain M.A., C.T.T.S. - 10/01/2021 12:13 PM CDT 2 mg MINI lozenges with refills, flavored [facility] in [place] documented in this encounter Plan of Treatment Upcoming Encounters Date Type Specialty Care Team Description Telemedicine Transplant 2 Appointment Radiology Matthew Jerome 2 YTyrell, MJules [address] [place] [address] Appointment Gastroenterology and Adrianne, 2 Hepatology uYe Burciaga M.D. [address] [place] [address] Virtual Visit Transplant Matthew Jerome 2 Tyrell Rodriguez M.D. [address] [place] [phone] Office Visit Gastroenterology and Matthew Jerome 2 Hepatology Joshua RodriguezBSumaBLilian Bedolla [address] [place] [phone] Appointment Radiology LuisMatthew abdul 2 Joshua RodriguezBSumaBLilian Bedolla [address] [place] [phone] Hospital Gastroenterology and Matthew Jerome Cirrhos is Alcoholic (HCC) 2 Encounter Hepatology Joshua RodriguezBSumaBLilian Bedolla [address] [place] [phone] Anesthesia Event Gastroenterology and Rl, 2 Hepatology Ervin Burgos M.D. 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
--- OUTSIDE RECORDS SUMMARY | 2022-02-12 20:29 | XMS_ITS | Encounter Summary ---
:1990 Author Organization [facility] Address [address] [place] [address] Care Team Providers Name Role Phone Elsewhere, Pcp Primary Care Provider Unavailable Reason for Visit Transplant (Routine) - Closed Specialty Diagnoses / Procedures Referred By Contact Refer red To Contact Transplant Surgery / Diagnoses Cirrhosis Alcoholic (HCC) Abnormal Liver Function Test Ascites Pretransplant Recipient Evaluation Exam Preoperative Exam Warren Hernández, [facility] Transplant Lilian, M.P.H. [address] [place] [address] Referral ID Status Reason Start Date Expiration Date Visits Requ ested Visits Authorized [id number] Closed 08/25/2021 08/25/2022 1 1 Encounter Details Date Type Department Care Team Description 09/30/2021 Clinical Support Warren Carter M.D., M.P.H. [address] [place] [address] Cirrhosis Alcoholic (HCC); Center for Joel Tan L.I.C.S.W., M.S.W. [address] [place] [address] [place] [address] Abnormal Liver Function Test; Transplantation and Ascites; Clinical Regeneration Pretra nsplant Recipient Evaluation Exam; in [facility] Preoperative Exam [address] [place] [address] Social History Tobacco Use Types Packs/Day Years [...] you attend pentecostal or Patient refused 2021 jewish services? 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 Migue Schroeder at [facility] in [place], [place]. Primary language: Estonian For this interview, the patient utilized language services: No Citizenship US citizen: Yes US resident: Yes Race/Ethnicity: Race: White Ethnicity: Uruguayan, Descent Disclaimer: ?? The patient and her [...] understanding. ?? The role of the Transplant Workday Senior Associate was explained. ?? Selection Committee: The patient [...] of origin: The patient was raised in [place], [place]. Her parents when she was 20 years old. Her mother remarried. The patient calls her step- father, Siva, her bonus father. The patient's mother and step-father live in [place], [place]. The patient's father did not remarry. 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 She stopped working in January 2021 as she was advised to no longer work due to her medical condition. Patient's plan for extended time off for recovery: The patient does not currently have a source of income. Boyfriend's work: The patient's boyfriend works time study analyst as a paint wireline operator for a powder coating company called [employer]. Spiritual Practices/Lutheran/Culture Spirituality / Lutheran / Culture: The patient stated she does not have a jewish preference. The patient was informed of the availability of Housing Grant Analyst Services at [facility]. History The patient stated she has [...] a nurse come into her home from [facility] every (phone: [phone]). The nurse sets up the patient's medications [...] The patient lives approximately one hour from [place]. She would arrive via private vehicle. Relocation Plan: The patient was provided with information on the [facility]. Shewas also provided with information on the Retail Salesman Services at [facility] who can assist with answering questions about local lodging accommodations. We did not have an opportunity to discuss these in detail today due to the time constraints of our interview, however I have encouraged the patient tocall me should she have additional questions. FINANCES/INSURANCE Primary insurance: [facility] BLUE PLUS HMO ([place] Medicaid) Secondary/Supplemental insurance: None Does patient have a benefit for travel, lodging and/or meals through insurance? The patient does notknow. I advised her to contact [facility] Landscaper Helper to inquire about her eligibility for benefits. Household Information Number of persons in household: Two (patient and her boyfriend) Type of housing: Rent Source of household income: The patient does not currently have a source of income. She stated she is not receiving any assistance (such as food support) through her [facility] Landscaper Helper office. She has not yet applied for assistance. The patient's boyfriend has income through his time study analyst employment wages. Current Financial Concerns: The patient [...] including the application process. Pharmacy Pharmacy coverage: [facility] BLUE PLUS HMO (OR Medicaid) Current medication(s) [...] I provided the patient with [facility]'s blank advance directive booklet and provided her with education on advance directives. I encouraged the patient to provide a copy of an advance directive to [facility], should she completed one in the [...] Service and had to meet with a accounts officer. The patient was asked how she [...] is either neuropathy brought on by cirrhosis, group home effects brought on by drugs used to [...] patient's OR Medical Cannabis registration number is: [id number]. Family History: Father - alcohol (past, not currently of concern) Labs: Ethyl Glucuronide screen: 09/30/2021 - negative Urine Drug screen: 09/30/2021 - presumptive positive for benzodiazepines and THC. PEth: 09/30/2021 - in process ASSESSMENT / PLAN DISCUSSION Met with the patient and her mother at the [place] [address] [facility] this morning. The patient is registered for [...] 16 or 17 and has had a [employer] Cannabis card since May 2021. Capability of [...] The patient was advised to contact her [facility] marriage and family social worker office to determine if she has a [...] - [facility] brochure ([id number]) - Patient's Guide to [facility] ([id number]) - Information for Caregivers: Taking Care of Yourself ([id number]) - Preparing for Transplant: Body, Mind, and Spirit ([id number]) - [facility] Advance directive booklet - [employer] financial assistance resource guide - What to Expect as a Transplant Caregiver brochure ([id number]) - National Living Donor Assistance Center brochure - [employer] fundraising brochure - National Foundation for Transplants fundraising brochure - [facility]: 5 Ways to Connect ([id number]) PLAN -The patient will continue through the [...] Radiology Matthew Jerome 2 YTyrell M.D. [address] [place] [address] Appointment Gastroenterology and Adrianne, 2 Hepatology Yue Burciaga M.D. [address] [place] [address] Virtual Visit Transplant Matthew Jerome 2 YTyrell M.D. [address] [place] [phone] Office Visit Gastroenterology and Matthew Jerome 2 Hepatology Tyrell Rodriguez M.D. [address] [place] [phone] Appointment Radiology Luischantell Matthew 2 Tyrell Rodriguez M.D. [address] [place] [phone] [facility] Cirrhos is Alcoholic (HCC) 2 Encounter Hepatology Tyrell Rodriguez M.D. [address] [place] [phone] Anesthesia Event Gastroenterology and Rl, 2 Hepatology Ervin Burgos M.D. [address] [place] [phone] [facility] G[facility] ESOPHAG OGASTRODUODENOSCOPY 2 Hepatology Tyrell Rodriguez M.D. 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 Hypertension Portal (HCC) documented as of this encounter Visit Diagnoses Diagnosis Cirrhosis Alcoholic (HCC) Abnormal Liver Function Test Ascites Pretransplant Recipient Evaluation Exam Preoperative Exam Cirrhosis Alcoholic (HCC) Cirrhosis Alcoholic (HCC) Hypertension Portal (HCC) documented in this encounter Care Teams Senior Architectural Designer Relationship Specialty Start Date End Date Elsewhere, Pcp PCP - General Family Medicine 03/10/20 11/30/21 [facility]- [facility] 08/25/21 Ervin Schroeder MD Referring Provider Family Medicine 03/24/[address] [place], [place] [phone] documented as of this encounter
--- OUTSIDE RECORDS SUMMARY | 2022-02-12 20:29 | XMS_ITS | Encounter Summary ---
:1990 Author Organization [facility] Address [address] [place] [address] Care Team Providers Name Role Phone Elsewhere, Pcp Primary Care Provider Unavailable Reason for Referral Outpatient (Routine) - Closed Specialty Diagnoses / Procedures Referred By Contact Refer red To Contact Diagnoses Fatty Liver Failure Liver (HCC) Cirrhosis Alcoholic (HCC) Preoperative Exam Ascites Abnormal Liver Function Test Warren Hernández M.D., [facility] Procedures [place] Walk M.P.H. [address] [place] [address] Referral ID Status Reason Start Date Expiration Date Visits Requ ested Visits Authorized [id number] Closed 09/08/2021 09/08/2022 1 1 Reason for Visit Outpatient (Routine) - Closed Specialty Diagnoses / Procedures Referred By Contact Refer red To Contact Diagnoses Fatty Liver Failure Liver (HCC) Cirrhosis Alcoholic (HCC) Preoperative Exam Ascites Abnormal Liver Function Test Warren Hernández M.D., [facility] Procedures [place] Walk M.P.H. [address] [place] [address] Referral ID Status Reason Start Date Expiration Date Visits Requ ested Visits Authorized [id number] Closed 09/08/2021 09/08/2022 1 1 Encounter Details Date Type Department Care Team Description 09/24/2021 Hospital Encounter Department of Talnatalia, Fatty Li fred; Pulmonary Warren A, Failure Liver ( HCC); Rehabilitation Lilian, M.P.H. Cirrhosis Alcoholic (HCC); Edgard Holloway [address] [facility] Preoperative Exam; [address] [place], [place] Ascites; [place] [phone] Abnormal Liver Function Test [phone] Social History Tobacco Use Types Packs/Day Years [...] you attend buddhism or Patient refused 2021 amish services? 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 [address] [place] [phone] Virtual Visit Transplant Matthew Jerome 2 Y M.B.B.SSuma, Lilian [address] [place] [phone] Office Visit Gastroenterology and Matthew Jerome 2 Hepatology Elizabeth Rodriguez.B.B.SLilian Moise [address] [place] [phone] Appointment Radiology Matthew Jerome 2 Y M.B.B.SLilian Moise [address] [place] [phone] Hospital Gastroenterology and Matthew Jerome Cirrhos is Alcoholic (HCC) 2 Encounter Hepatology Jennifer M.B.B.SLilian Moise [address] [place] [phone] Anesthesia Event Gastroenterology and Rl, 2 Hepatology Ervin Burgos M.D. [address] [place] [phone] Surgery Gastroenterology and Mousa, Matthew ESOPHAG OGASTRODUODENOSCOPY 2 Hepatology Tyrell Rodriguez M.D. [address] [place] [phone] Scheduled Procedures Name Priority Associated Diagnoses Date/Time ESOPHAGOGASTRODUODENOSCOPY Cirrhosis Alc oholic (HCC) 03/20/2022 8:45 AM IMPORT EXPORT MANAGER Hypertension Portal (HCC) documented as of [...] (HCC) documented in this encounter Care Teams [employer] Relationship Specialty Start Date End Date Elsewhere, Pcp PCP - General Family Medicine 03/10/20 11/30/21 [facility] [place] lab 08/25/21 Ervin Schroeder MD Referring Provider Family Medicine 03/24/[address] [place] [address] documented as of this encounter
--- OUTSIDE RECORDS SUMMARY | 2022-02-12 20:29 | XMS_ITS | Encounter Summary ---
:1990 Author Organization [facility] Address [address] [place] [address] Care Team Providers Name Role Phone Elsewhere, Pcp Primary Care Provider Unavailable Reason for Visit Reason Onset Date Comments [facility] Financial 09/26/2021 Encounter Details Date Type Department Care Team Description 09/26/2021 Clinical Communication Ramirez Amador, [facility] Center for [place], Transplantation and C.M.A. Clinical Regeneration in [phone] [place], [place] (Work) [address] [place] [phone] Social History Tobacco Use Types Packs/Day [...] you attend synagogue or Patient refused 2021 yarsani services? 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 - 09/26/2021 10:47 AM CDT Recipient Pre-Transplant Review Document: Organ: Kidney ____ Liver _X___ Heart ____ Lung ____ Pancreas ____ BMT ____ Insurance Carrier: [facility] 2B Demographic Information: __X__ Confirmed information is [...] coordination of benefits: deductible, co-insurance, co-pay, or [id number] maximum. __X__ Patient understands that this is [...] current coverage and to contact the appropriate republican with anticipated changes. Estimate of Services: _X___ Confirmed understanding of potential financial responsibilities and transplant anticipated expenses. _X___ Transplant care and post-transplant medications are life-long (general information; patient can obtain list of immunosuppressants (Medications) from the nurse coordinator. __X__ Discussed out of pocket expenses for follow-up care, including testing, routine care, and/or complications from surgery. _X___ Handed patient Financial Assistance Policy. ([id number]) PATIENT EDUCATION Education Material: __X__ Provided patient with an educational guide (Planning for Your Transplant: A Financial Guide [id number]) to assist in outlining financial responsibilities related [...] education provided. _X___ Advised recipient to notify [facility] with any insurance updates or changes; failure to do so may impede transplant eligibility. __X__ Discussed financial concerns related to ability to pay for services and post-transplant care. Including, Financial Assistance policy if financial hardship was identified. __X__ Provided Transplant Financial business card with our contact phone number of [phone] if patient were to have additional questions. __X__ Annual benefit review will be done to verify active coverage with patient's insurance going forward. PATIENT TEACH BACK X [facility] X May have travel and lodging funds available through [facility] X Cost of transplant X Reviewed to call Transplant Financial Coordinators with questions documented in this encounter Plan of Treatment Upcoming Encounters Date Type Specialty Care Team Description Telemedicine Transplant 2 Appointment Radiology Matthew Jerome 2 YTyrell, Lilian [address] [place] [phone] Appointment Gastroenterology demian Silver 2 Hepatology Yue Burciaga M.D. [address] [place] [phone] Virtual Visit Transplant Matthew Jerome 2 YTyrell, Lilian [address] [place] [phone] Office Visit Gastroenterology and Matthew Jerome 2 Hepatology Tyrell Rodriguez M.D. [address] [place] [phone] Appointment Radiology LuisMatthew abdul 2 YTyrell M.D. [address] [place] [phone] [facility] Gastroenterology and Matthew Jerome Cirrhos is Alcoholic (HCC) 2 Encounter Hepatology Tyrell Rodriguez M.D. [address] [place] [phone] Anesthesia Event Gastroenterology and Rl, 2 Hepatology Ervin Burgos M.D. [address] [place] [phone] Surgery Gastroenterology and Matthew Jerome ESOPHAG OGASTRODUODENOSCOPY 2 Hepatology Joshua RodriguezBSumaBGraeme, Lilian [address] [place] [phone] Scheduled Procedures Name Priority Associated Diagnoses Date/Time ESOPHAGOGASTRODUODENOSCOPY Cirrhosis Alc oholic (HCC) 03/20/2022 8:45 AM RN TRANSITION Hypertension Portal (HCC) documented as of this encounter Visit Diagnoses Not on filedocumented in this encounter Care Teams Uppers Edge Burnisher Relationship Specialty Start Date End Date Elsewhere, Pcp PCP - General Family Medicine 03/10/20 11/30/21 [facility] 08/25/21 Ervin Schroeder MD Referring Provider Family Medicine 03/24/[address] [place] [address] documented as of this encounter
--- OUTSIDE RECORDS SUMMARY | 2022-02-12 20:29 | XMS_ITS | Encounter Summary ---
:1990 Author Organization [facility] Address [address] [place] [address] Care Team Providers Name Role Phone Elsewhere, Pcp Primary Care Provider Unavailable Reason for Referral Transplant (Routine) - Authorized Specialty Diagnoses / Procedures Referred By Contact Refer red To Contact Transplant Surgery / Matthew Jerome [place] [facility] M.B.B.S., M.D. [address] [place] [phone] Referral ID Status Reason Start Date Expiration Date Visits V isits Requested Authorized [id number] Authorized 10/27/2021 10/27/2022 1 1 Scheduling Instructions May be phone or video- patient preferenc e. Scheduled in [place]. Thanks Transplant (Routine) - Authorized Specialty Diagnoses / Procedures Referred By Contact Refer red To Contact Transplant Surgery / Matthew Jerome [place] [facility] Transplant M.B.B.S., M.D. [address] [place] [phone] Referral ID Status Reason Start Date Expiration Date Visits V isits Requested Authorized [id number] Authorized 10/27/2021 10/27/2022 1 1 Scheduling Instructions [place] Scheduled in [place]. Thanks Reason for Visit Reason Comments Patient Education 1:1 education Encounter Details Date Type Department Care Team Description 10/01/2021 Education Warren Carter M.D., M.P.H. [address] [place], [place] [id number] Cirrhosis Alcoholic (HCC); [place] [facility] Chano Engle, R.N., C.C.T.C. Abnormal Liver Function Test; Transplantation and Ascites; Clinical Regeneration in Pre transplant Recipient Evaluation Exam; [place], [place] Preoperative Exam [address] [place] [phone] Social History Tobacco Use Types Packs/Day [...] you attend buddhism or Patient refused 2021 yazdanism services? Do [...] or the highest technical, or vocational p Room 8 Studio degree you have received? 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 All questions were answered. Catia Carias has [...] Radiology Matthew Jerome 2 Tyrell Rodriguez M.D. [address] [place] [address] [phone] Appointment Gastroenterology demian Silver 2 Hepatology Yue Burciaga M.D. [address] [place] [phone] Virtual Visit Transplant Matthew Jerome 2 Tyrell Rodriguez M.D. [address] [place] [address] [phone] Office Visit Gastroenterology and Matthew Jerome 2 Hepatology Tyrell Rodriguez M.D. [address] [place] [address] [phone] Appointment Radiology Matthew Jerome 2 YTyrell M.D. [address] [place] [phone] Hospital Gastroenterology and Queenie Matthew Cirrhos is Alcoholic (HCC) 2 Encounter Hepatology Tyrell Rodriguez M.D. [address] [place] [address] [phone] Anesthesia Event Gastroenterology and Rl, 2 Hepatology Ervin Burgos M.D. [address] [place] [phone] Surgery Gastroenterology and Matthew Jerome ESOPHAG OGASTRODUODENOSCOPY 2 Hepatology Tyrell Rodriguez M.D. [address] [place] [phone] Pending Results Name Type Priority Associated Diagnoses Date/Ti me Phosphatidylethanol Lab Routine Cirrhosis Alcoholic 1 10:16 AM Confirmation (HCC) CDT Abnormal Liver Function Test Ascites Pretransplant Recipient Evaluation Exam Preoperative Exam Scheduled Orders Name Type Priority Associated Diagnoses Order S chedule Phosphatidylethanol Lab Routine Cirrhosis Alcoholic E xpected: Confirmation (HCC) 01/05/2022, Abnormal Liver Expires: 01/02 Function Test Ascites Pretransplant Recipient Evaluation Exam Preoperative Exam Scheduled Procedures Name Priority Associated Diagnoses Date/Time ESOPHAGOGASTRODUODENOSCOPY Cirrhosis Alc oholic (HCC) 03/20/2022 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 Hypertension Portal (HCC) Scheduled Referrals Name Type Priority Associated Order Schedule Diagnoses Transplant Liver Outpatient Referral Routine Expe cted: office visit 01/05/2022 (clinic) (Approximate), Expires: 01/27/2023 Transplant Liver Outpatient Referral Routine Expe cted: office visit 01/26/2022 (clinic) (Approximate), Expires: 01/27/2023 documented as of this encounter Results Uric Acid (02/12/2022 10:16 AM CDT) P [...] [facility] - [address] [place], [place] [address] [facility] [place] [address] [facility] 200 [facility] (ABNORMAL) CRP (C-Reactive Protein) (02/12/2022 10:16 AM CDT) [facility] C-Reactive 12.1 (H) <=8.0 mg/L 02/12/2022 DTL Protein (CRP), 11:18 AM CDT S Specimen Anatomical Collection Method Collection Time Receive d Time (Source) Location / / Volume Laterality Blood (Blood, 02/12/2022 10:16 02/12/2022 Venous) AM CDT 10:57 AM CDT Matthew Santillan M.D. LAB BLOOD ADD-ON Performing Organization Address City/State/ZIP Code Phon e Number [facility] - [facility] [place], [place] [address] [facility] [place] [address] [facility] 200 [facility] AFP (Alpha-Fetoprotein), Tumor Marker (02/12/2022 10:16 AM CDT) [facility] Alpha-Fetoprote 7.9 ng/mL 02/12/2022 SDSC in, Tumor 3:41 PM CDT Marker, S Comment: ----REFERENCE VALUE---- <8.4 Reference values are for non- subjects only; production of AFP elevates values in women. ----ADDITIONAL INFORMATION---- In this [place] assay AFP concen trations are <8.4 ng/mL [...] method is an immunoenzymatic assay manufactured by [employer] and is tested on the [place] Unicel DxI 800. Values obtained with different [...] M.D. LAB BLOOD ADD-ON Performing Organization Address City/State/[facility] Code Phon e Number [facility] [address] [place], [place] [address] SUPPORT [place], [place] [address] [place] [address] Dr. CHAPPELL (ABNORMAL) CBC with Differential, Blood (02/12/2022 10:16 AM CDT) [facility] Method Time Signature Hemoglobin 9.4 (L) 11.6 [...] 02/12/2022 Venous) AM CDT 10:27 AM CDT Matthew Santillan M.D. LAB BLOOD ADD-ON Performing Organization Address City/[facility] Phon e Number [facility] - [address] (ABNORMAL) Bilirubin, Direct (02/12/2022 10:16 AM CDT) P athologist Signature Bilirubin, 4.4 (H) 0.0 - 0.3 02/12/2022 DT Direct, S mg/dL 11:15 AM CDT Specimen Anatomical Collection Method Collection Time Receive d Time (Source) Location / / Volume Laterality Blood (Blood, 02/12/2022 10:16 02/12/2022 Venous) AM CDT 10:57 AM CDT Matthew Santillan M.D. LAB BLOOD ADD-ON Performing Organization Address City/[facility] Phon e Number [facility] - [address] (ABNORMAL) Comprehensive Metabolic Panel (02/12/2022 10:16 AM CDT) P athologist Signature Potassium, S 4.0 3.6 [...] [facility] - [address] [place], [place] [address] [facility] [place] [address] [facility] [address] documented in this encounter Visit Diagnoses Diagnosis Cirrhosis Alcoholic (HCC) Abnormal Liver Function Test Ascites Pretransplant Recipient Evaluation Exam Preoperative Exam Cirrhosis Alcoholic (HCC) Cirrhosis Alcoholic (HCC) Hypertension Portal (HCC) documented in this encounter Care Teams Pastrycook Relationship Specialty Start Date End Date Elsewhere, Pcp PCP - General Family Medicine 03/10/20 11/30/21 [facility] [place] [facility] 08/25/21 Ervin Schroeder MD Referring Provider Family Medicine 03/24/[address] [place] [address] documented as of this encounter
--- OUTSIDE RECORDS SUMMARY | 2022-02-12 20:29 | XMS_ITS | Encounter Summary ---
:1990 Author Organization [facility] Address [address] [place] [address] Care Team Providers Name Role Phone Elsewhere, Pcp Primary Care Provider Unavailable Reason for Referral Physical Therapy (Routine) - Pending Review Specialty Diagnoses / Procedures Referred By Contact Refer red To Contact Diagnoses Edema Leg Matthew Jerome M.B.BSumaSSuma, [facility] Region Procedures PT Ongoing treatment .D. [address] [place] [phone] Referral ID Status Reason Start Date Expiration Date Visits V isits Requested Authorized [id number] Pending 09/24/2021 09/24/2022 99 99 Review Reason for Visit Physical Therapy (Routine) - Closed Specialty Diagnoses / Procedures Referred By Contact Refer red To Contact Diagnoses Edema Leg Matthew Jerome M.B.BGraeme, [facility] Region Procedures PT Evaluate and treat M.D. [address] [place] [phone] Referral ID Status Reason Start Date Expiration Date Visits Requ ested Visits Authorized [id number] Closed 09/16/2021 09/16/2022 1 1 Encounter Details Date Type Department Care Team Description 09/24/2021 Comprehensive Visit Department of Physical Matthew Jerome M.B.B.S., Lilian [address] [place] [phone] Edema Leg Medicine and Jessy Haywood M.S., P.T., CLT-JAKI [address] [place] [phone] Rehabilitation in [place], [place] [address] [place] [phone] Social History Tobacco Use Types Packs/Day [...] you attend episcopal or Patient refused 2021 methodist services? 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 MJules [address] [place] [phone] Rehab Diagnosis: 1. Edema Leg Reason for Referral: Insurance: Payor: [employer] [place] CARE / Plan: [employer] HMO / Product Type: MedicaidHMO / Total [...] patient education handout A Guide to Lymphedema (KV3127), as well as signs and symptoms of cellulitis utilizing patient education handout Cellulitis (AW3849). - Instructed exercises to reduce lymphedema. - [...] Transplant 2 Appointment Radiology LuisNew abdular 2 YTyrell M.D. [address] [place] [phone] Appointment Gastroenterology and Adrianne, 2 Hepatology Yue Burciaga M.D. [address] [place] [phone] Virtual Visit Transplant LuisMatthew abdul 2 YTyrell M.D. [address] [place] [phone] Office Visit Gastroenterology and Matthew Jerome 2 Hepatology YTyrell M.D. [address] [place] [address] [phone] Appointment Radiology LuisNew abdular 2 YTyrell M.D. [address] [place] [phone] Hospital Gastroenterology and LuisMatthew abdul Cirrhos is Alcoholic (HCC) 2 Encounter Hepatology Tyrell Rodriguez M.D. [address] [place] [phone] Anesthesia Event Gastroenterology and Rl, 2 Hepatology Ervin Burgos M.D. [address] [place] [phone] Surgery Gastroenterology and Mousa, Matthew ESOPHAG OGASTRODUODENOSCOPY 2 Hepatology Tyrell Rodriguez M.D. 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
--- OUTSIDE RECORDS SUMMARY | 2022-02-12 20:29 | XMS_ITS | Encounter Summary ---
:1990 Author Organization [facility] Address [address] [place] [address] Care Team Providers Name Role Phone Elsewhere, Pcp Primary Care Provider Unavailable Reason for Visit Transplant (Routine) - Closed Specialty Diagnoses / Procedures Referred By Contact Refer red To Contact Transplant Surgery / Diagnoses Cirrhosis Alcoholic (HCC) Abnormal Liver Function Test Ascites Pretransplant Recipient Evaluation Exam Preoperative Exam Warren Hernández, [facility] Transplant Lilian, M.P.H. [address] [place] [address] Referral ID Status Reason Start Date Expiration Date Visits Requ ested Visits Authorized [id number] Closed 08/25/2021 08/25/2022 1 1 Encounter Details Date Type Department Care Team Description 09/30/2021 Comprehensive Visit Warren Middleton M.D., M.P.H. [address] [place] [address] Cirrhosis Alcoholic (HCC); Luis [facility] Milagros Navarro M.S., RDN, LD [address] [place] [phone] Abnormal Liver Function Test; Transplantation and Ascites; Clinical Regeneration Pretra nsplant Recipient Evaluation Exam; in [place], [facility] E xam [place] [address] [place] [phone] Social History Tobacco Use Types Packs/Day Years [...] you attend protestant or Patient refused 2021 yazidi services? 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 HS snack: lemon/mescalero apache, apple, a few crackers or protein bar [...] Transplant 2 Appointment Radiology QueenieNewar 2 Tyrell Rodriguez, Lilian [address] [place] [phone] Appointment Gastroenterology and Adrianne, 2 Hepatology Yue Burciaga M.D. [address] [place] [phone] Virtual Visit Transplant LuisNew abdular 2 Tyrell Rodriguez M.D. [address] [place] [address] [phone] Office Visit Gastroenterology and LuisNew abdular 2 Hepatology Tyrell Rodriguez M.D. [address] [place] [address] [phone] Appointment Radiology Matthew Jerome 2 YTyrell M.D. [address] [place] [address] [phone] Hospital Gastroenterology and Matthew Jerome Cirrhos is Alcoholic (HCC) 2 Encounter Hepatology Tyrell Rodriguez M.D. [address] [place] [phone] Anesthesia Event Gastroenterology and Rl, 2 Hepatology Ervin Burgos M.D. [address] [place] [address] [phone] Surgery Gastroenterology and Queenie Matthew ESOPHAG OGASTRODUODENOSCOPY 2 Hepatology Tyrell Rodriguez M.D. 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 Hypertension Portal (HCC) documented as of this encounter Visit Diagnoses Diagnosis Cirrhosis Alcoholic (HCC) Abnormal Liver Function Test Ascites Pretransplant Recipient Evaluation Exam Preoperative Exam Cirrhosis Alcoholic (HCC) Cirrhosis Alcoholic (HCC) Hypertension Portal (HCC) documented in this encounter Care Teams Senior Tableau Developer Relationship Specialty Start Date End Date Elsewhere, Pcp PCP - General Family Medicine 03/10/20 11/30/21 [facility] [place] [facility] 08/25/21 Ervin Schroeder MD Referring Provider Family Medicine 03/24/[address] [place] [address] [phone] documented as of this encounter
--- OUTSIDE RECORDS SUMMARY | 2022-02-12 20:29 | XMS_ITS | Encounter Summary ---
:1990 Author Organization [facility] Address [address] [place] [address] Care Team Providers Name Role Phone Elsewhere, Pcp Primary Care Provider Unavailable Reason for Referral Outpatient (Routine) - Closed Specialty Diagnoses / Procedures Referred By Contact Refer red To Contact Diagnoses Cirrhosis Alcoholic (HCC) Abnormal Liver Function Test Ascites Pretransplant Recipient Evaluation Exam Preoperative Exam Warren Hernández [facility] Procedures Echo Transthoracic (TTE) Lilian, M.P.H. [address] [place] [address] Referral ID Status Reason Start Date Expiration Date Visits Requ ested Visits Authorized [id number] Closed 08/31/2021 08/31/2022 1 1 Reason for Visit Outpatient (Routine) - Closed Specialty Diagnoses / Procedures Referred By Contact Refer red To Contact Diagnoses Cirrhosis Alcoholic (HCC) Abnormal Liver Function Test Ascites Pretransplant Recipient Evaluation Exam Preoperative Exam Warren Hernández, [facility] Procedures Echo Transthoracic (TTE) Lilian, M.P.H. [address] [place] [address] Referral ID Status Reason Start Date Expiration Date Visits Requ ested Visits Authorized [id number] Closed 08/31/2021 08/31/2022 1 1 Encounter Details Date Type Department Care Team Description 09/23/2021 Hospital Department of [place], Cirrhosis Alco holic (HCC); Encounter Cardiovascular Warren A, Abnormal Live r Function Test; Diseases in Lilian Holloway, M.P.H . Ascites; [place] [address] [place] [address] Pretransplant Recipient Evaluation Exam; [address] [place], [place] [address] [phone] Social History Tobacco Use Types Packs/Day Years [...] you attend faith or Patient refused 2021 latter day services? 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 [address] [place] [phone] Appointment Gastroenterology demian Silver 2 Hepatology Yue Burciaga M.D. [address] [place] [phone] Virtual Visit Transplant LuisNew abdular 2 YTyrell M.D. [address] [place] [phone] Office Visit Gastroenterology and Matthew Jerome 2 Hepatology Tyrell Rodriguez M.D. [address] [place] [phone] Appointment Radiology LuisNew abdular 2 YTyrell M.D. [address] [place] [phone] Hospital Gastroenterology and Matthew Jerome Cirrhos is Alcoholic (HCC) 2 Encounter Hepatology Tyrell Rodriguez M.D. [address] [place] [phone] Anesthesia Event Gastroenterology and Rl, 2 Hepatology Ervin Burgos M.D. [address] [place] [address] [phone] Surgery Gastroenterology and Luischantell Matthew ESOPHAG OGASTRODUODENOSCOPY 2 Hepatology Tyrell Rodriguez M.D. 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
--- OUTSIDE RECORDS SUMMARY | 2022-02-12 20:29 | XMS_ITS | Encounter Summary ---
:1990 Author Organization [facility] Address [address] [place] [address] Care Team Providers Name Role Phone Elsewhere, Pcp Primary Care Provider Unavailable Reason for Visit Outpatient (Routine) - Closed Specialty Diagnoses / Procedures Referred By Contact Refer red To Contact Preventive Medicine Diagnoses Cirrhosis Alcoholic (HCC) Abnormal Liver Function Test Ascites Pretransplant Recipient Evaluation Exam Preoperative Exam Warren Hernández [facility] Lilian, M.P.H. [address] [place] [address] Referral ID Status Reason Start Date Expiration Date Visits Requ ested Visits Authorized [id number] Closed 08/25/2021 08/25/2022 1 1 Encounter Details Date Type Department Care Team Description 10/01/2021 Comprehensive Visit Section of Preventive, Alicia Diggs Counseling Preventive (Primary Dx); Transportation and K, ANGIOGRAPHY TECHNOLOGIST, Cirrhosis Alcoholic (HCC); Occupational Medicine C.N.P. Abnorm al Liver Function Test; in [facility]; [place] Pretransplant Recipient Eval uation Exam; [address] [facility] [place] [phone] Social History Tobacco Use Types Packs/Day Years [...] you attend methodist or Patient refused 2021 rastafari services? Do [...] or the highest technical, or vocational p [facility] degree you have received? 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 [address] [place] [phone] Virtual Visit Transplant Matthew Jerome 2 Joshua RodriguezB.B.SSuma, Lilian [address] [place] [address] [phone] Office Visit Gastroenterology and Matthew Jerome 2 Hepatology Joshua RodriguezB.B.SSuma, Lilian [address] [place] [phone] Appointment Radiology Matthew Jerome 2 Y M.B.B.SSuma, Lilian [address] [place] [address] [phone] Hospital Gastroenterology and Matthew Jerome Cirrhos is Alcoholic (HCC) 2 Encounter Hepatology Joshua RodriguezB.B.Lilian [place] [address] [place] [phone] Anesthesia Event Gastroenterology and Rl, 2 Hepatology Ervin Burgos M.D. [address] [place] [phone] Surgery Gastroenterology and Mousa, Matthew ESOPHAG OGASTRODUODENOSCOPY 2 Hepatology Tyrell Rodriguez M.D. [address] [place] [phone] Scheduled Procedures Name Priority Associated Diagnoses Date/Time ESOPHAGOGASTRODUODENOSCOPY Cirrhosis Alc oholic (HCC) 03/20/2022 8:45 AM METAL LEAF LAYER Hypertension Portal (HCC) documented as of this encounter Visit Diagnoses Diagnosis Counseling Preventive - Primary Cirrhosis Alcoholic (HCC) Abnormal Liver Function Test Ascites Pretransplant Recipient Evaluation Exam Preoperative Exam Cirrhosis Alcoholic (HCC) Cirrhosis Alcoholic (HCC) Hypertension Portal (HCC) documented in this encounter Care Teams Laborer [place] Relationship Specialty Start Date End Date Elsewhere, Pcp PCP - General Family Medicine 03/10/20 11/30/21 [facility] [place] lab 08/25/21 Ervin Schroeder MD Referring Provider Family Medicine 03/24/[address] [place] [address] documented as of this encounter
--- OUTSIDE RECORDS SUMMARY | 2022-02-12 20:29 | XMS_ITS | Encounter Summary ---
:1990 Author Organization [facility] Address [address] [place] [address] Care Team Providers Name Role Phone Elsewhere, Pcp Primary Care Provider Unavailable Reason for Visit Reason Comments Med Management Outpatient (Routine) - Closed Specialty Diagnoses / Procedures Referred By Contact Refer red To Contact Pharmacy Diagnoses Cirrhosis Alcoholic (HCC) Abnormal Liver Function Test Ascites Pretransplant Recipient Evaluation Exam Preoperative Exam Warren Hernández M.D., [facility] M.P.H. [address] [place] [address] Referral ID Status Reason Start Date Expiration Date Visits Requ ested Visits Authorized [id number] Closed 08/25/2021 08/25/2022 1 1 Encounter Details Date Type Department Care Team Description 09/30/2021 Office Visit Warren Carter M.D., M.P.H. [address] [place] [address] Cirrhosis Alcoholic (HCC); [facility] Evon Joseph, Pharm.D., R.Ph. [address] [place] [phone] Abnormal Liver Function Test; Transplantation and Ascites; Clinical Regeneration in Pre transplant Recipient Evaluation Exam; [place], [place] Preoperative Exam [address] [place] [address] Social History Tobacco Use Types Packs/Day [...] you attend temple or Patient refused 2021 oriental orthodox services? 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 female who is seen today by [facility] Pharmacist. The patient presents today for a [facility] Pharmacist transplant evaluation; consideration for transplant is [...] future, as smoking hurts her lungs.Medical Cannabis [place] registration #[id number]. Insomnia medications: She also has hydroxyzine 25 [...] 1 mgdaily, thiamine 100 mg daily, ergocalciferol 28698 IU weekly on Wednesday and vitamin A 26417 units three days per week. Contraception medications: [...] 1 time per month. The patient uses [facility] locally. Does the patient know what medications [...] Appointment Radiology Matthew Jerome 2 YTyrell, Lilian [address] [place] [phone] Appointment Gastroenterology and Adrianne, 2 Hepatology Yue Burciaga M.D. [address] [place] [phone] Virtual Visit Transplant Matthew Jerome 2 YTyrell M.D. [address] [place] [phone] Office Visit Gastroenterology and Matthew Jerome 2 Hepatology Tyrell Rodriguez M.D. [address] [place] [phone] Appointment Radiology LuisMatthew abdul 2 YTyrell M.D. [address] [place] [phone] Hospital Gastroenterology and [place] Matthew Cirrhos is Alcoholic (HCC) 2 Encounter Hepatology Tyrell Rodriguez M.D. [address] [place] [address] [phone] Anesthesia Event Gastroenterology and Rl, 2 Hepatology Ervin Burgos M.D. [address] [place] [address] [phone] Surgery Gastroenterology and Queenie Matthew ESOPHAG OGASTRODUODENOSCOPY 2 Hepatology Tyrell Rodriguez M.D. [address] [place] [phone] Scheduled Procedures Name Priority Associated Diagnoses Date/Time ESOPHAGOGASTRODUODENOSCOPY Cirrhosis Alc oholic (HCC) 03/20/2022 8:45 AM CULINARY ARTS TEACHER Hypertension Portal (HCC) documented as of this encounter Visit Diagnoses Diagnosis Cirrhosis Alcoholic (HCC) Abnormal Liver Function Test Ascites Pretransplant Recipient Evaluation Exam Preoperative Exam Cirrhosis Alcoholic (HCC) Cirrhosis Alcoholic (HCC) Hypertension Portal (HCC) documented in this encounter Care Teams Furnace Repairer Helper Relationship Specialty Start Date End Date Elsewhere, Pcp PCP - General Family Medicine 03/10/20 11/30/21 [facility] [place] lab 08/25/21 Ervin Schroeder MD Referring Provider Family Medicine 03/24/211979 [address] [place] [address] documented as of this encounter
--- OUTSIDE RECORDS SUMMARY | 2022-02-12 20:29 | XMS_ITS | Encounter Summary ---
:1990 Author Organization [facility] Address [address] [place] [address] Care Team Providers Name Role Phone Elsewhere, Pcp Primary Care Provider Unavailable Encounter Details Date Type Department Care Team Description 09/30/2021 Lab Department of Laboratory Alec Hernández Cirrhosis Alcoholic (HCC); Medicine and PathologySilvano M.D., M.P.H. Abnormal Liver Function Test; [place], [place] [address] [place] [address] Ascites; [place] [address] Pretransplant Recipient Evaluation Exam; [address] [place] [address] [place] [phone] Social History Tobacco Use Types Packs/Day Years [...] you attend mandaeism or Patient refused 2021 scientologist services? Do [...] highest technical, or vocational p [facility] degree you have received? 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 - 10/03/2021 3:32 PM CDT I reviewed the attached results. Urinalysis is negative. Staph epidermidis is likely skin contamination. documented in this encounter Plan of Treatment Upcoming Encounters Date Type Specialty Care Team Description Telemedicine Transplant 2 Appointment Radiology Matthew Jerome 2, M.B.B.S., M.D. [address] [place] [phone] Appointment Gastroenterology and Adrianne, 2 Hepatology Yue Burciaga M.D. [address] [place] [phone] Virtual Visit Transplant LuisMatthew abdul 2 Tyrell Rodriguez, Lilian [address] [place] [phone] Office Visit Gastroenterology and Matthew Jerome 2 Hepatology Tyrell Rodriguez M.D. [address] [place] [phone] Appointment Radiology LuisMatthew abdul 2 Tyrell Rodriguez M.D. [address] [place] [phone] Hospital Gastroenterology and Matthew Jerome Cirrhos is Alcoholic (HCC) 2 Encounter Hepatology Tyrell Rodriguez M.D. [address] [place] [phone] Anesthesia Event Gastroenterology and Rl, 2 Hepatology Ervin Burgos M.D. [address] [place] [phone] Surgery Gastroenterology and Matthew Jerome ESOPHAG OGASTRODUODENOSCOPY 2 Hepatology Joshua RodriguezBSumaBGraeme, Lilian [address] [place] [phone] Scheduled Procedures Name Priority Associated Diagnoses Date/Time ESOPHAGOGASTRODUODENOSCOPY Cirrhosis Alc oholic (HCC) 03/20/2022 8:45 AM SUPERVISOR LOOPING Hypertension Portal (HCC) documented as of this encounter Procedures Procedure Name Priority Date/Time Associated Comments Diagnosis UT OSMOLALITY ASSAY Routine 09/30/2021 8:23 AM Re [...] (ABNORMAL) Dipstick, Urine (09/30/2021 8:23 AM CDT) [facility] gist Method Time Signature Hemoglobin, Trace [...] M.P.H. LAB URINE ORDERABLES Performing Organization Address City/[facility]/ZIP [facility] Phon e Number [facility] - 200 [place], [place] [address] [facility] [place] [address] [facility] 200 [facility] Osmolality, Urine (09/30/2021 8:23 AM CDT) athologist Signature Osmolality, U 628 150 - 1150 09/30/2021 DT mOsm/kg 9:41 AM CDT Specimen Anatomical Collection Method Collection Time Receive d Time (Source) Location / / Volume Laterality Urine 09/30/2021 8:23 AM 2 8:24 CDT AM CDT Warren Hernández M.D., M.P.H. LAB URINE ORDERABLES Performing Organization Address City/[facility]/ZIP Code Phon e Number [facility] - 200 [place], [place] [address] [place] [address] [facility] 200 [facility] pH, Random, Urine (09/30/2021 8:23 AM CDT) athologist Signature pH, Random, U 5.7 4.5 - 8.0 09/30/2021 DT 9:41 AM CDT Specimen Anatomical Collection Method Collection Time Receive d Time (Source) Location / / Volume Laterality Urine 09/30/2021 8:23 AM 2 8:24 CDT AM CDT Warren Hernández M.D., M.P.H. LAB URINE ORDERABLES Performing Organization Address City/[facility]/ZIP [facility] Phon e Number [facility] - 200 [place], [place] [address] [place] [id number] [place] [address] Microscopic Manual (09/30/2021 8:23 AM CDT) athologist [...] M.P.H. LAB URINE ORDERABLES Performing Organization Address [facility] Phon e Number [facility] - [address] [place], [place] [address] [facility] [place] [address] Laboratories-[facility] [address] [facility] Ethyl Glucuronide Screen with Reflex, Urine (09/30/2021 8:23 AM CDT) [facility] Method Time Signature Ethyl Negative Cutoff: 09/30/2021 [facility] Glucuronide Scrn 500 ng/mL 11:12 AM CDT w/Reflex, U Comment: ----ADDITIONAL INFORMATION---- This test was developed and its performa nce characteristics determined by [facility] in a manner consistent with CLIA requirements. This test has not been cleared or approved by the [place] d and Drug Administration. Specimen Anatomical Collection Method Collection Time Receive d Time (Source) Location / / Volume Laterality Urine (Urine, 09/30/2021 8:23 AM 10/01/19 22 9:59 Midstream) CDT AM CDT Warren Hernández M.D., M.P.H. LAB URINE ORDERABLES Performing Organization Address City/[facility] Phon e Number [facility] [address] [place], [place] [address] [facility] [place] [address] Laboratory Medicine and Pathology [address] [place] (ABNORMAL) Bacterial Culture, Aerobic + Susc, Urine (09/30/2021 8:23 AM CDT) Component Value Ref Test Analysis Performed At [facility] Range Method Time Signature Urine Culture STAPHYLOCOCCUS EPIDERMIDIS 2 DTL 10,000-100,000 cfu/mL 2:00 PM CDT (A) [...] Phon e Number [facility] - [address] [place] [address] [facility] [place] [address] [facility] 200 [facility] (ABNORMAL) Drug Abuse Survey with Confirmation, Panel 9, Urine (09/30/2021 8:23 AM CDT) Component Value Ref Test Analysis Performed At [facility] Range Method Time Signature Alcohol [...] 150 ng/mL 09/30/2021 11:12 AM CD T [facility] Comment: This cocaine immunoassay targets benzoyl ecgonine [...] Its performance characteristics were determi foreign by [facility] in a manner consistent with CLIA requirements. [...] Phon e Number [facility] [address] [place], [place] [address] [facility] [place] [address] Laboratory Medicine and Pathology [address] [place] Urinalysis with Microscopic: Urine, Midstream (09/30/2021 8:23 AM CDT) [facility] Method Time Signature Source Urine, [...] Phon e Number [facility] - [address] [place], [place] [address] [facility] [place] [address] Laboratories-[facility] [address] documented in this encounter Visit Diagnoses Diagnosis Cirrhosis Alcoholic (HCC) Abnormal Liver Function Test Ascites Pretransplant Recipient Evaluation Exam Preoperative Exam Cirrhosis Alcoholic (HCC) Cirrhosis Alcoholic (HCC) Hypertension Portal (HCC) documented in this encounter Care Teams Surgery Aid Relationship Specialty Start Date End Date Elsewhere, Pcp PCP - General Family Medicine 03/10/20 11/30/21 [facility] [place] [facility] 08/25/21 Ervin Schroeder MD Referring Provider Family Medicine 03/24/21[address] [place] [address] documented as of this encounter
--- OUTSIDE RECORDS SUMMARY | 2022-02-12 20:29 | XMS_ITS | Encounter Summary ---
:1990 Author Organization [facility] Address [address] [place] [address] Care Team Providers Name Role Phone Elsewhere, Pcp Primary Care Provider Unavailable Reason for Referral Outpatient (Routine) - Closed Specialty Diagnoses / Procedures Referred By Contact Refer brianda To Contact Nicotine Dependence Jessy Crain M.A., C.T.T.S. [address] [place] [address] Referral ID Status Reason Start Date Expiration Date Visits Requ ested Visits Authorized [id number] Closed 10/01/2021 10/01/2022 1 1 Scheduling Instructions [...] Recipient Evaluation Exam Preoperative Exam Warren Hernández, [facility] Nicotine Dependence Lilian, M.P.H. [address] [place] [address] Referral ID Status Reason Start Date Expiration Date Visits Requ ested Visits Authorized [id number] Closed 08/25/2021 08/25/2022 1 1 Encounter Details Date Type Department Care Team Description 10/01/2021 Clinical Support Department of Elier Hernández M.D., M.P.H. [address] [place], [place] [address] Nicotine Dependence Cigarettes (Primary Dx); Nicotine Jessy Crain M.A., C.T.T.S. [address] [place] [phone] Cirrhosis Alcoholic (HCC); Dependence, Gonda Abnormal L iver Function Test; Building, in Ascites; [place], Pretransplant R ecipient Evaluation Exam; [place] Preoperative Exam [address] [place] [phone] Social History Tobacco Use Types Packs/Day Years [...] How often do you attend zoroastrianism or Patient refused 2021 anabaptism services? 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 - 10/01/2021 10:00 AM CDT SUBJECTIVE CHIEF COMPLAINT / REASON FOR VISIT Tobacco use disorder HISTORY OF PRESENT ILLNESS Catia Carias is a 31 y.o. female who was seen at [place] [address] and is being evaluated for Tobacco Use [...] provided the patient with educational materials and [facility] contact information. We have scheduled a follow-up [...] Appointment Radiology LuisNew abdular 2 YTyrell M.D. [address] [place] [address] [phone] Appointment Gastroenterology demian Silver 2 Hepatology Yue Burciaga M.D. [address] [place] [phone] Virtual Visit Transplant LuisMatthew badul 2 YTyrell M.D. [address] [place] [address] [phone] Office Visit Gastroenterology and LuisMatthew abdul 2 Hepatology Tyrell Rodriguez M.D. [address] [place] [address] [phone] Appointment Radiology LuisMatthew abdul 2 YTyrell M.D. [address] [place] [address] [phone] Hospital Gastroenterology and Matthew Jerome Cirrhos is Alcoholic (HCC) 2 Encounter Hepatology Tyrell Rodriguez M.D. [address] [place] [address] [phone] Anesthesia Event Gastroenterology demian Shine, 2 Hepatology Ervin Burgos M.D. [address] [place] [address] [phone] Surgery Gastroenterology and Mousa, Matthew ESOPHAG OGASTRODUODENOSCOPY 2 Hepatology Tyrell Rodriguez M.D. [address] [place] [phone] Scheduled Procedures Name Priority Associated Diagnoses Date/Time ESOPHAGOGASTRODUODENOSCOPY Cirrhosis Alc oholic (HCC) 03/20/2022 8:45 AM GLOBAL MARKETING OPERATIONS MANAGER Hypertension Portal (HCC) Scheduled Referrals Name Type [...] (HCC) documented in this encounter Care Teams Cloth Hauler Relationship Specialty Start Date End Date Elsewhere, Pcp PCP - General Family Medicine 03/10/20 11/30/21 [facility] [place] lab 08/25/21 Ervin Schroeder MD Referring Provider Family Medicine 03/24/[address] [place] [phone] documented as of this encounter
--- OUTSIDE RECORDS SUMMARY | 2022-02-12 20:29 | XMS_ITS | Encounter Summary ---
:1990 Author Organization [facility] Address [address] [place] [address] Care Team Providers Name Role Phone Elsewhere, Pcp Primary Care Provider Unavailable Reason for Visit Reason Comments Leg Pain Encounter Details Date Type Department Care Team Description 09/28/2021 Nurse Triage Department of [facility] Naila Walters, [place] Leg Pain Medicine, [facility], in [address] [place], [place] [address] [place] [phone] [place] [address] [phone] Social History Tobacco Use Types Packs/Day Years [...] you attend gnosticism or Patient refused 2021 mosque services? 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 documented in this encounter Plan of Treatment Upcoming Encounters Date Type Specialty Care Team Description Telemedicine Transplant 2 Appointment Radiology Matthew Jerome 2 Vik RodriguezBGraeme, Lilian [address] [place] [address] [phone] Appointment Gastroenterology demian Silver 2 Hepatology Yue Burciaga M.D. [address] [place] [phone] Virtual Visit Transplant Matthew Jerome 2 Tyrell Rodriguez M.D. [address] [place] [address] [phone] Office Visit Gastroenterology and Matthew Jerome 2 Hepatology Joshua RodriguezBSumaBLilian Bedolla [address] [place] [address] [phone] Appointment Radiology Matthew Jerome 2 YJoshuaB.BLilian Bedolla [address] [place] [address] [phone] Hospital Gastroenterology and Queenie Matthew Cirrhos is Alcoholic (HCC) 2 Encounter Hepatology Joshua RodriguezB.B.Lilian [place] [address] [place] [phone] Anesthesia Event Gastroenterology and Rl, 2 Hepatology Ervin Burgos M.D. [address] [place] [phone] Surgery Gastroenterology and Matthew Jerome ESOPHAG OGASTRODUODENOSCOPY 2 Hepatology Y, M.B.B.S., M.D. [address] [place] [phone] Scheduled Procedures Name Priority Associated Diagnoses Date/Time ESOPHAGOGASTRODUODENOSCOPY Cirrhosis Alc oholic (HCC) 03/20/2022 8:45 AM SLEEVE BASTER Hypertension Portal (HCC) documented as of this encounter Visit Diagnoses Not on filedocumented in this encounter Care Teams Fisheries Specialist Relationship Specialty Start Date End Date Elsewhere, Pcp PCP - General Family Medicine 03/10/20 11/30/21 [facility] [place] lab 08/25/21 Ervin Schroeder MD Referring Provider Family Medicine 03/24/[address] [place] [address] documented as of this encounter
--- OUTSIDE RECORDS SUMMARY | 2022-02-12 20:30 | XMS_ITS | Encounter Summary ---
:1990 Author Organization [facility] Address [address] [place] [address] Care Team Providers Name Role Phone Elsewhere, Pcp Primary Care Provider Unavailable Encounter Details Date Type Department Care Team Description 09/01/2021 Clinical Communication Department of Matthew Jerome Gastroenterology in M.BJhoan, Joshua [address] [phone] Social History Tobacco Use Types Packs/Day Years [...] you attend tenriism or Patient refused 2021 restoration services? 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 [place] is wondering if there is a day in which you would see this patient after they have all the testing. documented in this encounter Plan of Treatment Upcoming Encounters Date Type Specialty Care Team Description Telemedicine Transplant 2 Appointment Radiology Matthew Jerome 2 YTyrell, Lilian [address] [place] [phone] Appointment Gastroenterology and Adrianne, 2 Hepatology Yue Burciaga M.D. [address] [place] [address] [place] [phone] Virtual Visit Transplant Matthew Jerome 2 Tyrell Rodriguez, Lilian [address] [place] [phone] Office Visit Gastroenterology and Matthew Jerome 2 Hepatology Tyrell Rodriguez M.D. [address] [place] [phone] Appointment Radiology LuisMatthew abdul 2 Tyrell Rodriguez M.D. [address] [place] [phone] [facility] Gastroenterology and Matthew Jerome Cirrhos is Alcoholic (HCC) 2 Encounter Hepatology Tyrell Rodriguez, Lilian [address] [place] [phone] Anesthesia Event Gastroenterology and Rl, 2 Hepatology Ervin Burgos M.D. [address] [place] [phone] Surgery Gastroenterology and Matthew Jerome ESOPHAG OGASTRODUODENOSCOPY 2 Hepatology Vik RodriguezBGraeme, Lilian [address] [place] [phone] Scheduled Procedures Name Priority Associated Diagnoses Date/Time ESOPHAGOGASTRODUODENOSCOPY Cirrhosis Alc oholic (HCC) 03/20/2022 8:45 AM SOLAR ENERGY INSTALLATION MANAGER Hypertension Portal (HCC) documented as of this encounter Visit Diagnoses Not on filedocumented in this encounter Additional Health Concerns Infection Onset Date Last Indicated Resolved Time COVID19 08/29/2021 08/29/2021 09/18/2021 8:31 AM CDT documented as of this encounter Care Teams Telecommunication Operator Relationship Specialty Start Date End Date Elsewhere, Pcp PCP - General Family Medicine 03/10/20 11/30/21 [facility] [place] lab 08/25/21 Ervin Schroeder MD Referring Provider Family Medicine 03/24/[address] [place] [phone] documented as of this encounter
--- OUTSIDE RECORDS SUMMARY | 2022-02-12 20:30 | XMS_ITS | Encounter Summary ---
:1990 Author Organization [facility] Address [address] [place] [address] Care Team Providers Name Role Phone Elsewhere, Pcp Primary Care Provider Unavailable Reason for Visit Reason Comments Appointment PMR PT Encounter Details Date Type Department Care Team Description 09/15/2021 Clinical Department of Matthew Jerome Appointment (P MR Communication Gastroenterology in Y, M.B.B.S., [facility] [address] [place] [phone] [place] [phone] Social History Tobacco Use Types Packs/Day Years [...] you attend temple or Patient refused 2021 adventism services? 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 Thank you in advance Telephone Encounter - Andreas Lopez - 09/15/2021 11:[address] Queenie Henson could you please place an order for Brandon for PMR PT appt. Pt would like to see in there is anything available while she is here for LTE. Thank you in advance documented in this encounter Plan of Treatment Upcoming Encounters Date Type Specialty Care Team Description Telemedicine Transplant 2 Appointment Radiology Matthew Jerome 2 YTyrell, Lilian [address] [place] [phone] Appointment Gastroenterology and Adrianne, 2 Hepatology Yue Burciaga M.D. [address] [place] [phone] Virtual Visit Transplant Matthew Jerome 2 Tyrell Rodriguez M.D. [address] [place] [phone] Office Visit Gastroenterology and Matthew Jerome 2 Hepatology Tyrell Rodriguez M.D. [address] [place] [phone] Appointment Radiology Matthew Jerome 2 YTyrell M.D. [address] [place] [phone] Hospital Gastroenterology and [place] Matthew Cirrhos is Alcoholic (HCC) 2 Encounter Hepatology Tyrell Rodriguez M.D. [address] [place] [phone] Anesthesia Event Gastroenterology and Rl, 2 Hepatology Ervin Burgos M.D. [address] [place] [phone] Surgery Gastroenterology and Luischantell Matthew ESOPHAG OGASTRODUODENOSCOPY 2 Hepatology Tyrell Rodriguez, Lilian [address] [place] [phone] Scheduled Procedures Name Priority Associated Diagnoses Date/Time ESOPHAGOGASTRODUODENOSCOPY Cirrhosis Alc oholic (HCC) 03/20/2022 8:45 AM APPRENTICE/LINEMAN Hypertension Portal (HCC) documented as of this encounter Visit Diagnoses Not on filedocumented in this encounter Additional Health Concerns Infection Onset Date Last Indicated Resolved Time COVID19 08/29/2021 08/29/2021 09/18/2021 8:31 AM CDT documented as of this encounter Care Teams Book Editor Relationship Specialty Start Date End Date Elsewhere, Pcp PCP - General Family Medicine 03/10/20 11/30/21 [facility] [place] [facility] 08/25/21 Ervin Schroeder MD Referring Provider Family Medicine 03/24/[address] [place] [address] [phone] documented as of this encounter
--- OUTSIDE RECORDS SUMMARY | 2022-02-12 20:30 | XMS_ITS | Encounter Summary ---
:[address] [facility] Address [address] [place] [address] Care Team Providers Name Role Phone Elsewhere, Pcp Primary Care Provider Unavailable Reason for Visit Reason Comments Hepatobiliary Encounter Details Date Type Department Care Team Description 09/19/2021 Clinical Communication Division of Edgar, Hepat obiliary Gastroenterology in [place], [place] Lilian, M.P.H. [address] [facility] [address] [place] [phone] [place], [place] [phone] Social History Tobacco Use Types Packs/Day Years [...] you attend worship or Patient refused 2021 confucianist services? 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 - 09/22/2021 9:55 AM CDT SUBJECTIVE CHIEF COMPLAINT / REASON FOR CALL Hepatobiliary, CT abd, anxiety ASSESSMENT nurse phoned patient to discuss preference for CT abd at [place]. She was prescribed Ativan 1 mg to [...] is away today; nurse will check with [facility] for options. PLAN Anxiety related to claustrophobia related to CT abd scheduled for 14:45 today at [place]. Disposition/Recommendation: notified provider and awaiting recommendations. Information/Education: patient/caller able to teach back. Caller agreeable to plan of care: yes. The following references were used: nursing clinical judgement. 10:30 Addendum: Patient informed that [facility] (per Dr. Ramirez Driscoll) says she has not been seen here in [place] yet so does not feel comfortable prescribing a controlled substance for a procedure that usually is not performed with much sedation. She should contact [facility] or her local PCPif she seeks additional [...] she had called and discussed this with [facility] GI Department. Meat Team Member also explained that changed of sedation type may result in a change of date/time of CT scan and she likely would not be able to still have CT done today in [place] with a change of sedation type from oral Ativan. Patient expressed she would maybe be willing to try the CT scan as ordered. She will call and follow up with [facility]. documented in this encounter Plan of Treatment Upcoming Encounters Date Type Specialty Care Team Description Telemedicine Transplant 2 Appointment Radiology Matthew Jerome 2 YTyrell M.D. [address] [place] [phone] Appointment Gastroenterology and Adrianne, 2 Hepatology Yue Burciaga M.D. [address] [place] [address] Virtual Visit Transplant Matthew Jerome 2 YTyrell M.D. [address] [place] [phone] Office Visit Gastroenterology and [facility] 2 Hepatology Tyrell Rodriguez M.D. [address] [place] [phone] Appointment Radiology Akchantell Matthew 2 YTyrell M.D. [address] [place] [phone] [facility] Gastroenterology and [facility] Cirrhos is Alcoholic (HCC) 2 Encounter Hepatology Tyrell Rodriguez M.D. [address] [place] [phone] Anesthesia Event Gastroenterology and Rl, 2 Hepatology Ervin Burgos M.D. [address] [place] [phone] Surgery Gastroenterology and [facility] ESOPHAG OGASTRODUODENOSCOPY 2 Hepatology Tyrell Rodriguez M.D. [address] [place] [phone] Scheduled Procedures Name Priority Associated Diagnoses Date/Time ESOPHAGOGASTRODUODENOSCOPY Cirrhosis Alc oholic (HCC) 03/20/2022 8:45 AM SENIOR ACCOUNT REPRESENTATIVE Hypertension Portal (HCC) documented as of this encounter Visit Diagnoses Diagnosis Anxiety - Primary Personal History Of Failed Moderate Jo tion Cirrhosis Alcoholic (HCC) Cirrhosis Alcoholic (HCC) Hypertension Portal (HCC) documented in this encounter Care Teams Pediatric Acute Care Unit Nurse Relationship Specialty Start Date End Date Elsewhere, Pcp PCP - General Family Medicine 03/10/20 11/30/21 [facility] 08/25/21 Ervin Schroeder MD Referring Provider Family Medicine 03/24/[address] [place] [address] documented as of this encounter
--- OUTSIDE RECORDS SUMMARY | 2022-02-12 20:30 | XMS_ITS | Encounter Summary ---
:1990 Author Organization [facility] Address [address] [place] [address] Care Team Providers Name Role Phone Elsewhere, Pcp Primary Care Provider Unavailable Encounter Details Date Type Department Care Team Description 09/03/2021 Virtual Visit Division of [facility] Marco Alberto A bnormal Liver Internal Medicine, M.D. Function Test [facility] in [address] [place] [address] [place] [place] [phone] [place], [place] [phone] (Work) [phone] Social History Tobacco Use Types Packs/Day Years [...] you attend religious or Patient refused 2021 pentecostalism services? 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 - 09/03/2021 5:24 PM CDT Note in error. documented in this encounter Plan of Treatment Upcoming Encounters Date Type Specialty Care Team Description Telemedicine Transplant 2 Appointment Radiology Matthew Jerome 2 YTyrell M.D. [address] [place] [phone] Appointment Gastroenterology and Adrianne, 2 Hepatology Yue Burciaga M.D. [address] [place] [phone] Virtual Visit Transplant Matthew Jerome 2 Tyrell Rodriguez M.D. [address] [place] [phone] Office Visit Gastroenterology and Matthew Jerome 2 Hepatology Tyrell Rodriguez M.D. [address] [place] [phone] Appointment Radiology LuisMatthew abdul 2 Tyrell Rodriguez M.D. [address] [place] [phone] [facility] Gastroenterology and Matthew Jerome Cirrhos is Alcoholic (HCC) 2 Encounter Hepatology Tyrell Rodriguez M.D. [address] [place] [phone] Anesthesia Event Gastroenterology and Rl, 2 Hepatology Ervin Burgos M.D. [address] [place] [phone] Surgery Gastroenterology and Matthew Jerome ESOPHAG OGASTRODUODENOSCOPY 2 Hepatology Tyrell Rodriguez M.D. [address] [place] [phone] Scheduled Procedures Name Priority Associated Diagnoses Date/Time ESOPHAGOGASTRODUODENOSCOPY Cirrhosis Alc oholic (HCC) 03/20/2022 8:45 AM MOTION STUDY TECHNICIAN Hypertension Portal (HCC) documented as of this encounter Visit Diagnoses Diagnosis Abnormal Liver Function Test Cirrhosis Alcoholic (HCC) Cirrhosis Alcoholic (HCC) Hypertension Portal (HCC) documented in this encounter Additional Health Concerns Infection Onset Date Last Indicated Resolved Time COVID19 08/29/2021 08/29/2021 09/18/2021 8:31 AM CDT documented as of this encounter Care Teams Paint Tester Relationship Specialty Start Date End Date Elsewhere, Pcp PCP - General Family Medicine 03/10/20 11/30/21 [facility] 08/25/21 Ervin Schroeder MD Referring Provider Family Medicine 03/24/[address] [place] [phone] documented as of this encounter
--- OUTSIDE RECORDS SUMMARY | 2022-02-12 20:30 | XMS_ITS | Encounter Summary ---
:1990 Author Organization [facility] Address [address] [place] [address] Care Team Providers Name Role Phone Elsewhere, Pcp Primary Care Provider Unavailable Encounter Details Date Type Department Care Team Description 09/09/2021 Orders Only Department of Mousa, Matthew Y, Abnormal Angelica er Gastroenterology in M.B.Yelena. M. Slick. Function Test [address] (Primary Dx) 10[address] [place] [phone] Social History Tobacco Use Types Packs/Day Years [...] you attend mandaeism or Patient refused 2021 roman catholic services? 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 [address] [place] [phone] Virtual Visit Transplant Matthew Jerome 2, M.B.BLilian Bedolla [address] [place] [phone] Office Visit Gastroenterology and Matthew Jerome 2 Hepatology Tyrell Rodriguez M.D. [address] [place] [phone] Appointment Radiology [facility] 2 YTyrell M.D. [address] [place] [phone] Hospital Gastroenterology and [facility] Cirrhos is Alcoholic (HCC) 2 Encounter Hepatology Tyrell Rodriguez M.D. [address] [place] [phone] Anesthesia Event Gastroenterology and Rl, 2 Hepatology Ervin Burgos M.D. [address] [place] [phone] Surgery Gastroenterology and [facility] ESOPHAG OGASTRODUODENOSCOPY 2 Hepatology Tyrell Rodriguez M.D. [address] [place] [phone] Scheduled Procedures Name Priority Associated Diagnoses Date/Time ESOPHAGOGASTRODUODENOSCOPY Cirrhosis Alc oholic (HCC) 03/20/2022 8:45 AM JEWEL BEARING GRINDER Hypertension Portal (HCC) documented as of this encounter Results Creatinine with Estimated GFR (09/19/2021 1:32 PM CDT) athologist Signature Creatinine 0.68 0.59 - 09/19/2021 [place] 1.04 mg/dL 4:09 PM CDT eGFR-Black/Afric >90 >=60 09/19/2021 [place] an [place] Citizen mL/min/BSA 4:09 PM CDT Comment: ----ADDITIONAL INFORMATION---- Estimated GFR calculated using the 2009 CKD_EPI creatinine equation. eGFR Non-Black/ >90 >=60 mL/min/BSA 09/19/2021 4:09 PM CDT OW Comment: ----ADDITIONAL INFORMATION---- Estimated GFR calculated using the 2009 CKD_EPI creatinine equation. Specimen Anatomical Collection Method Collection Time Receive d Time (Source) Location / / Volume Laterality Blood (Blood, 09/19/2021 1:32 PM 09/20/19 3:30 Venous) CDT PM CDT Matthew Santillan M.D. LAB BLOOD ADD-ON Performing Organization Address City/State/ZIP Code Phon e Number [facility] [address] [place] [address] [facility] [place] [address] System in [place] [address] documented in this encounter Visit Diagnoses Diagnosis Abnormal Liver Function Test - Primary Cirrhosis Alcoholic (HCC) Cirrhosis Alcoholic (HCC) Hypertension Portal (HCC) documented in this encounter Additional Health Concerns Infection Onset Date Last Indicated Resolved Time COVID19 08/29/2021 08/29/2021 09/18/2021 8:31 AM CDT documented as of this encounter Care Teams Ticket Seller Relationship Specialty Start Date End Date Elsewhere, Pcp PCP - General Family Medicine 03/10/20 11/30/21 [facility] [place] lab 08/25/21 Ervin Schroeder MD Referring Provider Family Medicine 03/24/211979 [address] [place] [address] documented as of this encounter
--- OUTSIDE RECORDS SUMMARY | 2022-02-12 20:30 | XMS_ITS | Encounter Summary ---
:1990 Author Organization [facility] Address [address] [place] [address] Care Team Providers Name Role Phone Elsewhere, Pcp Primary Care Provider Unavailable Reason for Visit Reason Comments Patient Education Encounter Details Date Type Department Care Team Description 09/03/2021 Clinical Communication Department of Loreta Vazquez ent Education Infusion Therapy in M, R.N. [place], [place] [address] [place] [address] Social History Tobacco Use Types [...] you attend religion or Patient refused 2021 church services? 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 [address] [place] [phone] Virtual Visit Transplant LuisMatthew abdul 2 Tyrell Rodriguez M.D. [address] [place] [phone] Office Visit Gastroenterology and Matthew Jerome 2 Hepatology Tyrell Rodriguez M.D. [address] [place] [phone] Appointment Radiology Matthew Jerome 2 YTyrell M.D. [address] [place] [phone] Hospital Gastroenterology and Matthew Jerome Cirrhos is Alcoholic (HCC) 2 Encounter Hepatology Tyrell Rodriguez M.D. [address] [place] [phone] Anesthesia Event Gastroenterology and Rl, 2 Hepatology Ervin Burgos M.D. [address] [place] [phone] Surgery Gastroenterology and [facility] ESOPHAG OGASTRODUODENOSCOPY 2 Hepatology Vik RodriguezBLilian Bedolla [address] [place] [phone] Scheduled Procedures Name Priority Associated Diagnoses Date/Time ESOPHAGOGASTRODUODENOSCOPY Cirrhosis Alc oholic (HCC) 03/20/2022 8:45 AM ASPARAGUS CUTTER Hypertension Portal (HCC) documented as of this encounter Visit Diagnoses Not on filedocumented in this encounter Additional Health Concerns Infection Onset Date Last Indicated Resolved Time COVID19 08/29/2021 08/29/2021 09/18/2021 8:31 AM CDT documented as of this encounter Care Teams High Lift Mule Operator Relationship Specialty Start Date End Date Elsewhere, Pcp PCP - General Family Medicine 03/10/20 11/30/21 [facility] [place] [facility] 08/25/21 Ervin Schroeder MD Referring Provider Family Medicine 03/24/[address] [place] [address] documented as of this encounter
--- OUTSIDE RECORDS SUMMARY | 2022-02-12 20:30 | XMS_ITS | Encounter Summary ---
:1990 Author Organization [facility] Address [address] [place] [address] Care Team Providers Name Role Phone Elsewhere, Pcp Primary Care Provider Unavailable Reason for Visit Reason Comments Appointment PMR 09/23 Phone Contact PMR PT Encounter Details Date Type Department Care Team Description 09/14/2021 Clinical Ramirez Barajas, Camron coreas (PMR Communication Center for [facility], 09/23); Phone Transplantation and MCee., Ph.D. Contact (PMR PT) Clinical [facility] [address] in [facility] [address] [facility] [phone] Social History Tobacco Use Types Packs/Day Years [...] you attend tenriism or Patient refused 2021 hindu services? 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 None of the [...] Appointment Radiology LuisNew abdular 2 YTyrell M.D. [address] [place] [phone] Appointment Gastroenterology deiman Silver 2 Hepatology Yue Burciaga M.D. [address] [place] [phone] Virtual Visit Transplant LuisNew abdular 2 YTyrell M.D. [address] [place] [phone] Office Visit Gastroenterology and Matthew Jerome 2 Hepatology Tyrell Rodriguez M.D. [address] [place] [phone] Appointment Radiology Matthew Jerome 2 YTyrell M.D. [address] [place] [phone] Hospital Gastroenterology and LuisMatthew abdul Cirrhos is Alcoholic (HCC) 2 Encounter Hepatology Tyrell Rodriguez M.D. [address] [place] [phone] Anesthesia Event Gastroenterology and Rl, 2 Hepatology Ervin Burgos M.D. [address] [place] [phone] Surgery Gastroenterology and LuischantellMatthew ESOPHAG OGASTRODUODENOSCOPY 2 Hepatology Tyrell Rodriguez M.D. [address] [place] [phone] Scheduled Procedures Name Priority Associated Diagnoses Date/Time ESOPHAGOGASTRODUODENOSCOPY Cirrhosis Alc oholic (HCC) 03/20/2022 8:45 AM LACTATION SPECIALIST Hypertension Portal (HCC) documented as of this encounter Visit Diagnoses Not on filedocumented in this encounter Additional Health Concerns Infection Onset Date Last Indicated Resolved Time COVID19 08/29/2021 08/29/2021 09/18/2021 8:31 AM CDT documented as of this encounter Care Teams Security Compliance Specialist Relationship Specialty Start Date End Date Elsewhere, Pcp PCP - General Family Medicine 03/10/20 11/30/21 [facility] [place] [facility] 08/25/21 Ervin Schroeder MD Referring Provider Family Medicine 03/24/[address] [place] [address] documented as of this encounter
--- OUTSIDE RECORDS SUMMARY | 2022-02-12 20:30 | XMS_ITS | Encounter Summary ---
:1990 Author Organization [facility] Address [address] [place] [address] Care Team Providers Name Role Phone Elsewhere, Pcp Primary Care Provider Unavailable Reason for Visit Reason Comments Medical Information Encounter Details Date Type Department Care Team Description 08/30/2021 Nurse Triage Department of Joshua Resendiz, Medical Information Medicine, [facility], [place] [facility], [place] [address] [place] [phone] Social History Tobacco Use Types Packs/Day Years [...] you attend zoroastrianism or Patient refused 2021 latter day services? [...] or the highest technical, or vocational p Shoutlyram degree you have received? 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 https://www.cdc.gov/coronavirus/2019-ncov/vaccines/about-vaccines/index.html?s_c yn=88095:covid%20vaccine:sonja.ga:p:RG:GM:gen:PTN: Calling to request: information The recommended disposition is Manage symptoms at home. documented in this encounter Plan of Treatment Upcoming Encounters Date Type Specialty Care Team Description Telemedicine Transplant 2 Appointment Radiology Matthew Jerome 2 Vik RodriguezBLilian Bedolla [address] [place] [phone] Appointment Gastroenterology and Adrianne, 2 Hepatology Yue Burciaga M.D. [address] [place] [phone] Virtual Visit Transplant Matthew Jerome 2 Tyrell Rodriguez M.D. [address] [place] [phone] Office Visit Gastroenterology and [place] 2 Hepatology Tyrell Rodriguez M.D. [address] [place] [phone] Appointment Radiology Matthew Jerome 2 Joshua RodriguezBSumaBLilian Bedolla [address] [place] [phone] [facility] Gastroenterology and Matthew Jerome Cirrhos is Alcoholic (HCC) 2 Encounter Hepatology Joshua RodriguezBSumaBLilian Bedolla [address] [place] [phone] Anesthesia Event Gastroenterology and Rl, 2 Hepatology Ervin Burgos M.D. [address] [place] [phone] Surgery Gastroenterology and Matthew Jerome ESOPHAG OGASTRODUODENOSCOPY 2 Hepatology Joshua RodriguezB.BGraeme, Lilian [address] [place] [phone] Scheduled Procedures Name Priority Associated Diagnoses Date/Time ESOPHAGOGASTRODUODENOSCOPY Cirrhosis Alc oholic (HCC) 03/20/2022 8:45 AM ADMINISTRATIVE SERVICES DIRECTOR Hypertension Portal (HCC) documented as of this encounter Visit Diagnoses Not on filedocumented in this encounter Additional Health Concerns Infection Onset Date Last Indicated Resolved Time COVID19 08/29/2021 08/29/2021 09/18/2021 8:31 AM CDT documented as of this encounter Care Teams Human Resource Manager Relationship Specialty Start Date End Date Elsewhere, Pcp PCP - General Family Medicine 03/10/20 11/30/21 [facility] [place] [facility] 08/25/21 Ervin Schroeder MD Referring Provider Family Medicine 03/24/[address] [place], [place] [phone] documented as of this encounter
--- OUTSIDE RECORDS SUMMARY | 2022-02-12 20:30 | XMS_ITS | Encounter Summary ---
:[address] [facility] Address [address] [place] [address] Care Team Providers Name Role Phone Elsewhere, Pcp Primary Care Provider Unavailable Encounter Details Date Type Department Care Team Description 08/29/2021 Orders Only Department of Mousa, Matthew Y, Deficiency C oagulation Acquired (HCC) (Primary Dx); Gastroenterology in Joshua Santillan Cirrhosis Alcoholic (HCC) [place], [place] 10[address] [facility] 1025 [place] [phone] [phone] Social History Tobacco Use Types Packs/Day Years [...] attend roman catholic or Patient refused 2021 yazdanism services? 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 [address] [place] [phone] Virtual Visit Transplant Matthew Jerome 2 YTyrell M.D. [address] [place] [phone] Office Visit Gastroenterology and Matthew Jerome 2 Hepatology Vik RodriguezBGraeme, Lilian [address] [place] [phone] Appointment Radiology Matthew Jerome 2 YTyrell, Lilian [address] [place] [phone] Hospital Gastroenterology and Queenie Matthew Cirrhos is Alcoholic (HCC) 2 Encounter Hepatology Tyrell Rodriguez, Lilian [address] [place] [phone] Anesthesia Event Gastroenterology and Rl, 2 Hepatology Ervin Burgos M.D. [address] [place] [phone] Surgery Gastroenterology and Queenie Matthew ESOPHAG OGASTRODUODENOSCOPY 2 Hepatology Tyrell Rodriguez, Lilian [address] [place] [phone] Scheduled Procedures Name Priority Associated Diagnoses Date/Time ESOPHAGOGASTRODUODENOSCOPY Cirrhosis Alc oholic (HCC) 03/20/2022 8:45 AM EXTERMINATOR Hypertension Portal (HCC) documented as of this encounter Visit Diagnoses Diagnosis Deficiency Coagulation Acquired (HCC) - Primary Cirrhosis Alcoholic (HCC) Cirrhosis Alcoholic (HCC) Cirrhosis Alcoholic (HCC) Hypertension Portal (HCC) documented in this encounter Care Teams Data Warehouse Specialist Relationship Specialty Start Date End Date Elsewhere, Pcp PCP - General Family Medicine 03/10/20 11/30/21 [facility] [place] [facility] 08/25/21 Ervin Schroeder MD Referring Provider Family Medicine 03/24/[address] [place] [address] documented as of this encounter
--- OUTSIDE RECORDS SUMMARY | 2022-02-12 20:30 | XMS_ITS | Encounter Summary ---
:1990 Author Organization [facility] Address [address] [place] [address] Care Team Providers Name Role Phone Elsewhere, Pcp Primary Care Provider Unavailable Encounter Details Date Type Department Care Team Description 09/05/2021 Clinical Communication Division of Edgar, Gastroenterology in Warren Schaefer M.D.[place], [place] M.P.H. [address] [facility] [address] [place] [phone] [place], [place] [phone] Social History Tobacco Use Types Packs/Day Years [...] you attend hoahaoism or Patient refused 2021 druze services? 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 Hernández ordered a variety of tests for patient ot complete closer to home. [facility] reachedout to patient to offer tests closer to home and patient stated she would rather drive to [place] for all testing. Due to patient preference, the following orders will need [facility] before we are able to schedule for patient in [place]. 1. BMD bone Density Spine and Hips [...] 2 Appointment Radiology Matthew Jerome 2 Y, Elizabeth.Lliian Hudson [address] [place] [phone] Appointment Gastroenterology and Adrianne, 2 Hepatology Yue Burciaga M.D. [address] [place] [phone] Virtual Visit Transplant Matthew Jerome 2 Tyrell Rodriguez M.D. [address] [place] [phone] Office Visit Gastroenterology and Luischantell Matthew 2 Hepatology Tyrell oRdriguez M.D. [address] [place] [phone] Appointment Radiology Matthew Jerome 2 YTyrell M.D. [address] [place] [phone] [facility] Gastroenterology and Queenie Matthew Cirrhos is Alcoholic (HCC) 2 Encounter Hepatology Tyrell Rodriguez M.D. [address] [place] [phone] Anesthesia Event Gastroenterology and Rl, 2 Hepatology Ervin Burgos M.D. [address] [place] [phone] Surgery Gastroenterology and LuisNew abdular ESOPHAG OGASTRODUODENOSCOPY 2 Hepatology Tyrell Rodriguez, Lilian [address] [place] [phone] Scheduled Procedures Name Priority Associated Diagnoses Date/Time ESOPHAGOGASTRODUODENOSCOPY Cirrhosis Alc oholic (HCC) 03/20/2022 8:45 AM PRODUCT/INDUSTRY CONSULTANT Hypertension Portal (HCC) documented as of this encounter Visit Diagnoses Not on filedocumented in this encounter Additional Health Concerns Infection Onset Date Last Indicated Resolved Time COVID19 08/29/2021 08/29/2021 09/18/2021 8:31 AM CDT documented as of this encounter Care Teams Metal Sorter Relationship Specialty Start Date End Date Elsewhere, Pcp PCP - General Family Medicine 03/10/20 11/30/21 [facility] [place] [facility] 08/25/21 Ervin Schroeder MD Referring Provider Family Medicine 03/24/[address] [place] [address] documented as of this encounter
--- OUTSIDE RECORDS SUMMARY | 2022-02-12 20:30 | XMS_ITS | Encounter Summary ---
:1990 Author Organization [facility] Address [address] [place] [address] Care Team Providers Name Role Phone Elsewhere, Pcp Primary Care Provider Unavailable Encounter Details Date Type Department Care Team Description 09/19/2021 Hospital Encounter Department of Matthew Jerome Abnorm al Liver Laboratory Medicine M.BSumaBSumaSSuma, M. D. Function Test in [address] [address] [place] [phone] (Work) [phone] Social History Tobacco Use Types Packs/Day Years [...] you attend adventist or Patient refused 2021 yazidi services? 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 [address] [place] [phone] Virtual Visit Transplant Matthew Jerome 2 Joshua RodriguezBSumaBLilian Bedolla [address] [place] [phone] Office Visit Gastroenterology and Matthew Jerome 2 Hepatology Joshua RodriguezBSumaBLilian Bedolla [address] [place] [phone] Appointment Radiology Matthew Jerome 2 YJoshuaB.B.Lilian [place] [address] [place] [phone] Hospital Gastroenterology and [facility] Cirrhos is Alcoholic (HCC) 2 Encounter Hepatology Tyrell Rodriguez M.D. [address] [place] [phone] Anesthesia Event Gastroenterology and Rl, 2 Hepatology Ervin Burgos M.D. [address] [place] [phone] Surgery Gastroenterology and [facility] ESOPHAG OGASTRODUODENOSCOPY 2 Hepatology Tyrell Rodriguez M.D. [address] [place] [phone] Scheduled Procedures Name Priority Associated Diagnoses Date/Time ESOPHAGOGASTRODUODENOSCOPY Cirrhosis Alc oholic (HCC) 03/20/2022 8:45 AM MANAGER STORY Hypertension Portal (HCC) documented as of this [...] CDT eGFR-Black/Afric >90 >=60 09/19/2021 OWAT an Fijian mL/min/BSA 4:09 PM CDT Comment: ----ADDITIONAL INFORMATION---- [...] Code Phon e Number [facility]- [address] [place] [address] [facility] [address] System in [place] [address] documented in this encounter Visit Diagnoses Diagnosis Abnormal Liver Function Test Cirrhosis Alcoholic (HCC) Cirrhosis Alcoholic (HCC) Hypertension Portal (HCC) documented in this encounter Care Teams General Purchasing Agent Relationship Specialty Start Date End Date Elsewhere, Pcp PCP - General Family Medicine 03/10/20 11/30/21 [facility] [place] [facility] 08/25/21 Ervin Schroeder MD Referring Provider Family Medicine 03/24/211979 [address] [place] [address] documented as of this encounter
--- OUTSIDE RECORDS SUMMARY | 2022-02-12 20:30 | XMS_ITS | Encounter Summary ---
:1990 Author Organization [facility] Address [address] [place] [address] Care Team Providers Name Role Phone Elsewhere, Pcp Primary Care Provider Unavailable Reason for Visit Reason Comments Medication Question Encounter Details Date Type Department Care Team Description 09/18/2021 Clinical Department of Aamir Spicer Gastroenterology in Felicita PatricaSanty [place], [place] L.P.N. 10[address] [facility] [phone] [place] [phone] 2 (Work) [phone] Social History Tobacco Use Types Packs/Day Years [...] you attend hinduism or Patient refused 2021 hinduism services? Do you belong to [...] p [facility] degree you have received? 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 [address] [place] [phone] Virtual Visit Transplant Luischantell Matthew 2 Joshua RodriguezBSumaB.Kath, Lilian [address] [place] [phone] Office Visit Gastroenterology and Queenie Matthew 2 Hepatology Joshua RodriguezB.B.Lilian [place]ton [address] [place] [phone] Appointment Radiology Matthew Jerome 2 YJoshuaB.B.SLilian Moise [address] [place] [phone] Hospital Gastroenterology and QueenieMatthew Cirrhos is Alcoholic (HCC) 2 Encounter Hepatology Joshua RodriguezB.B.SSuma, Lilian [address] [place] [phone] Anesthesia Event Gastroenterology and Rl, Olinda Hepatology Ervin Burgos M.D. [address] [place] [phone] Surgery Gastroenterology and Matthew Jerome ESOPHAG OGASTRODUODENOSCOPY 2 Hepatology Tyrell Rodriguez M.D. 1025 [place] [phone] Scheduled Procedures Name Priority Associated Diagnoses Date/Time ESOPHAGOGASTRODUODENOSCOPY Cirrhosis Alc oholic (HCC) 03/20/2022 8:45 AM FLAT CUTTER Hypertension Portal (HCC) documented as of this encounter Visit Diagnoses Diagnosis Anxiety - Primary Cirrhosis Alcoholic (HCC) Cirrhosis Alcoholic (HCC) Hypertension Portal (HCC) documented in this encounter Additional Health Concerns Infection Onset Date Last Indicated Resolved Time COVID19 08/29/2021 08/29/2021 09/18/2021 8:31 AM CDT documented as of this encounter Care Teams Chinese Teacher Relationship Specialty Start Date End Date Elsewhere, Pcp PCP - General Family Medicine 03/10/20 11/30/21 [facility] [place] [facility] 08/25/21 Ervin Schroeder MD Referring Provider Family Medicine 03/24/[address] [place] [address] documented as of this encounter
--- OUTSIDE RECORDS SUMMARY | 2022-02-12 20:30 | XMS_ITS | Encounter Summary ---
:1990 Author Organization [facility] Address [address] [place] [address] Care Team Providers Name Role Phone Elsewhere, Pcp Primary Care Provider Unavailable Encounter Details Date Type Department Care Team Description 09/01/2021 Clinical Communication Department of Kerry Naranjo Gastroenterology in [place], [place] C.N.P., M.S.N. 1025 [facility] 1025 [place] [address] [place], [place] [phone] Social History Tobacco Use Types Packs/Day [...] you attend hindu or Patient refused 2021 samaritan services? Do [...] Date Recorded Female 04/12/2021 7:39 PM RN BABY documented as of this encounter Miscellaneous Notes [...] Radiology Matthew Jerome 2 YVikBSumaSSuma, Lilian 10[address] [place] [phone] Appointment Gastroenterology and Adrianne, 2 Hepatology Yue Burciaga M.D. [address] [place] [address] [phone] Virtual Visit Transplant Matthew Jerome 2 YTyrell M.D. [address] [place] [phone] Office Visit Gastroenterology and Matthew Jerome 2 Hepatology Tyrell Rodriguez M.D. [address] [place] [phone] Appointment Radiology LuisMatthew abdul 2 YTyrell M.D. [address] [place] [phone] Hospital Gastroenterology and Matthew Jerome Cirrhos is Alcoholic (HCC) 2 Encounter Hepatology Tyrell Rodriguez M.D. [address] [place] [phone] Anesthesia Event Gastroenterology and Rl, 2 Hepatology Ervin Burgos M.D. [address] [place] [address] [phone] Surgery Gastroenterology and Matthew Jerome ESOPHAG OGASTRODUODENOSCOPY 2 Hepatology Tyrell Rodriguez M.D. [address] [place] [phone] Scheduled Procedures Name Priority Associated Diagnoses Date/Time ESOPHAGOGASTRODUODENOSCOPY Cirrhosis Alc oholic (HCC) 03/20/2022 8:45 AM RN BABY Hypertension Portal (HCC) documented as of this encounter Visit Diagnoses Not on filedocumented in this encounter Additional Health Concerns Infection Onset Date Last Indicated Resolved Time COVID19 08/29/2021 08/29/2021 09/18/2021 8:31 AM CDT documented as of this encounter Care Teams Telephone Station Repairer Relationship Specialty Start Date End Date Elsewhere, Pcp PCP - General Family Medicine 03/10/20 11/30/21 [facility] 08/25/21 Ervin Schroeder MD Referring Provider Family Medicine 03/24/[address] [place] [address] documented as of this encounter
--- OUTSIDE RECORDS SUMMARY | 2022-02-12 20:30 | XMS_ITS | Encounter Summary ---
:1990 Author Organization [facility] Address [address] [place] [address] Care Team Providers Name Role Phone Elsewhere, Pcp Primary Care Provider Unavailable Reason for Visit Reason Comments Phone Contact Records 08/03 Encounter Details Date Type Department Care Team Description 08/29/2021 Clinical Department of Matthew Jerome Phone Contact Communication Gastroenterology in Vik RodriguezB.S., (Record s 08/03) [place], [place] M.DSuma 1025 [facility] 1025 [place] [address] [place] [phone] Social History Tobacco Use Types Packs/Day Years [...] you attend anglican or Patient refused 2021 jain services? Do [...] or the highest technical, or vocational p [facility] degree you have received? 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 [address] [place] [phone] Virtual Visit Transplant Matthew Jerome 2 YTyrell, Lilian [address] [place] [phone] Office Visit Gastroenterology and Matthew Jerome 2 Hepatology Tyrell Rodriguez M.D. [address] [place] [phone] Appointment Radiology LuisMatthew abdul 2 YTyrell M.D. [address] [place] [phone] [facility] Gastroenterology and Matthew Jerome Cirrhos is Alcoholic (HCC) 2 Encounter Hepatology Tyrell Rodriguez M.D. [address] [place] [phone] Anesthesia Event Gastroenterology and Rl, 2 Hepatology Ervin Burgos M.D. [address] [place] [phone] Surgery Gastroenterology and Matthew Jerome ESOPHAG OGASTRODUODENOSCOPY 2 Hepatology Joshua RodriguezBSumaBGraeme, Lilian [address] [place] [phone] Scheduled Procedures Name Priority Associated Diagnoses Date/Time ESOPHAGOGASTRODUODENOSCOPY Cirrhosis Alc oholic (HCC) 03/20/2022 8:45 AM HAZARDOUS MATERIALS WASTE TECHNICIAN Hypertension Portal (HCC) documented as of this encounter Visit Diagnoses Not on filedocumented in this encounter Additional Health Concerns Infection Onset Date Last Indicated Resolved Time COVID19 Pending 08/29/2021 08/29/2021 08/29/2021 11:29 PM CDT documented as of this encounter Care Teams Nursing Home Assistant Relationship Specialty Start Date End Date Elsewhere, Pcp PCP - General Family Medicine 03/10/20 11/30/21 [facility] [place] lab 08/25/21 Ervin Schroeder MD Referring Provider Family Medicine 03/24/[address] [place] [address] documented as of this encounter
--- OUTSIDE RECORDS SUMMARY | 2022-02-12 20:30 | XMS_ITS | Encounter Summary ---
:1990 Author Organization [facility] Address [address] [place] [address] Care Team Providers Name Role Phone Elsewhere, Pcp Primary Care Provider Unavailable Encounter Details Date Type Department Care Team Description 08/29/2021 Lab Department of Kerry Gee [facility] [place], TRUCK HOP, C.N.P., [facility].S.N. Examination (COVID-19) 1025 [facility] 1025 [place] [address] [place], [place] [phone] (Wo rk) Social History Tobacco Use [...] you attend bahai or Patient refused 2021 islam services? 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 For questions, contact the [address] Covid Care Team ([facility]): Pager: [phone] In basket: P [facility] COVID-19 POSITIVE Covid Care e-consult NOTE: At the time of testing, patients are instructed to obtain the result by calling the [employer] result line or by checking their online services account. documented in this encounter Plan of Treatment Upcoming Encounters Date Type Specialty Care Team Description Telemedicine Transplant 2 Appointment Radiology LuisNew abdular 2 YTyrell M.D. [address] [place] [phone] Appointment Gastroenterology demian Silver, 2 Hepatology Yue Burciaga M.D. [address] [place] [phone] Virtual Visit Transplant LuisMatthew abdul 2 YTyrell M.D. [address] [place] [phone] Office Visit Gastroenterology and Matthew Jerome 2 Hepatology Tyrell Rodriguez M.D. [address] [place] [address] [phone] Appointment Radiology LuisMatthew abdul 2 YJoshuaBLilian Staples [address] [place] [phone] Hospital Gastroenterology and Matthew Jerome Cirrhos is Alcoholic (HCC) 2 Encounter Hepatology Tyrell Rodriguez M.D. [address] [place] [phone] Anesthesia Event Gastroenterology and Rl, 2 Hepatology Ervin Burgos M.D. [address] [place] [phone] Surgery Gastroenterology and Mousa, Matthew ESOPHAG OGASTRODUODENOSCOPY 2 Hepatology Tyrell Rodriguez M.D. 1025 [place] [phone] Scheduled Procedures Name Priority Associated Diagnoses Date/Time ESOPHAGOGASTRODUODENOSCOPY Cirrhosis Alc oholic (HCC) 03/20/2022 8:45 AM HOOP COILER Hypertension Portal (HCC) documented as of this encounter Procedures Procedure Name Priority Date/Time Associated Diagnosis Comme nts SARS CORONAVIRUS-2 Routine 08/29/2021 4:14 PM Encounter For Re sults for this RNA, V CDT Preprocedural procedure are in Laboratory Examination the r esults (COVID-19) section. documented in this encounter Results (ABNORMAL) SARS Coronavirus-2 RNA, V Asymptomatic (08/29/2021 4:14 PM CDT) [facility] gist Method Time Signature SARS-CoV-2 Swab, 08/29/2021 [facility] Specimen Nasopharynx 11:28 PM Source CDT SARS CoV-2 Detected (A) Undetected 08/29/2021 MKTO RNA, TMA 11:28 PM CDT Comment: SARS-CoV-2 RNA present. ----ADDITIONAL INFORMATION---- This molecular amplification test was pe rformed using the Aptima SARS-CoV-2 assay ([employer] on the [employer] Sys tem under emergency use authorization (EUA) by the U.S. Food and Drug Administ ration. Fact sheets for this EUA assay can be fo und at the following links: For Healthcare Providers: https://www.fd a.gov/media/650650/download For Patients: https://www.fda.gov/media/ 873438/download Specimen Anatomical Collection Method Collection Time Receive d Time (Source) Location / / Volume Laterality Varies 08/29/2021 4:14 PM 5:17 (Nasopharynx) CDT PM CDT Kerry Naranjo APRN, C.N.P., M.S.N. LAB MICROBIOLOGY - GENERAL ORDERABLES Performing Organization Address City/State/ZIP Code Phon e Number [facility] [place] [address] [place] [address] System in [place] 1025 [facility] documented in this encounter Visit Diagnoses Diagnosis Encounter For Preprocedural Laboratory E xamination (COVID-19) Cirrhosis Alcoholic (HCC) Cirrhosis Alcoholic (HCC) Hypertension Portal (HCC) documented in this encounter Additional Health Concerns Infection Onset Date Last Indicated Resolved Time COVID19 Pending 08/29/2021 08/29/2021 08/29/2021 11:29 PM CDT documented as of this encounter Care Teams Patent Litigation Associate Relationship Specialty Start Date End Date Elsewhere, Pcp PCP - General Family Medicine 03/10/20 11/30/21 [facility] [place] [facility] 08/25/21 Ervin Schroeder MD Referring Provider Family Medicine 03/24/[address] [place] [address] documented as of this encounter
--- OUTSIDE RECORDS SUMMARY | 2022-02-12 20:30 | XMS_ITS | Encounter Summary ---
:1990 Author Organization [facility] Address [address] [place] [address] Care Team Providers Name Role Phone Elsewhere, Pcp Primary Care Provider Unavailable Reason for Referral MRI/CAT/PET Scan (Routine) - Closed Specialty Diagnoses / Procedures Referred By Contact Refer red To Contact Radiology Diagnoses Fatty Liver Failure Liver (HCC) Cirrhosis Alcoholic (HCC) Preoperative Exam Ascites Abnormal Liver Function Test Warren Hernández M.D., [facility] Region Procedures CT Abdomen without and with IV Contrast M.P.H. [address] [place] [address] Referral ID Status Reason Start Date Expiration Date Visits Requ ested Visits Authorized [id number] Closed 09/08/2021 09/08/2022 1 1 Reason for Visit MRI/CAT/PET Scan (Routine) - Closed Specialty Diagnoses / Procedures Referred By Contact Refer red To Contact Radiology Diagnoses Fatty Liver Failure Liver (HCC) Cirrhosis Alcoholic (HCC) Preoperative Exam Ascites Abnormal Liver Function Test Warren Hernández M.D., [facility] Region Procedures CT Abdomen without and with IV Contrast M.P.[facility]. [address] [place] [address] Referral ID Status Reason Start Date Expiration Date Visits Requ ested Visits Authorized [id number] Closed 09/08/2021 09/08/2022 1 1 Encounter Details Date Type Department Care Team Description 09/22/2021 Hospital Encounter Department of Deena Hernández Li fred; Radiology, [place] Warren Schaefer M.D., Greg segal Liver (HCC); [facility], in M.P[facility]. Cirrhosis Alcoholic (HCC); [place], [place] [address] [facility] Preoperative Exam; [address] [place], [place] Ascites; [place] [address] Abnormal Liver Function Test [phone] Social History [...] you attend lutheran or Patient refused 2021 moravian services? 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 [address] [place] [address] [phone] Appointment Gastroenterology demian Silver, 2 Hepatology Yue Segal M.D. [address] [place] [phone] Virtual Visit Transplant Matthew Jerome 2 Tyrell Rodriguez M.D. [address] [place] [address] [phone] Office Visit Gastroenterology and Matthew Jerome 2 Hepatology Tyrell Rodriguez M.D. [address] [place] [address] [phone] Appointment Radiology Matthew Jerome 2 YTyrell M.D. [address] [place] [address] [phone] Hospital Gastroenterology and Matthew Jerome Cirrhos is Alcoholic (HCC) 2 Encounter Hepatology Vik RodriguezBLilian Bedolla [address] [place] [phone] Anesthesia Event Gastroenterology and Rl, Olinda Hepatology Ervin Burgos M.D. [address] [place] [phone] Surgery Gastroenterology and Matthew Jerome ESOPHAG OGASTRODUODENOSCOPY 2 Hepatology Tyrell Rodriguez M.D. [address] [place] [phone] Scheduled Procedures Name Priority Associated Diagnoses Date/Time ESOPHAGOGASTRODUODENOSCOPY Cirrhosis Alc oholic (HCC) 03/20/2022 8:45 AM MEDIA CENTER DIRECT[employer] SCHOOL Hypertension Portal (HCC) documented as of this [...] dose documented in this encounter Care Teams Kitchen And Counter Worker Relationship Specialty Start Date End Date Elsewhere, Pcp PCP - General Family Medicine 03/10/20 11/30/21 [facility] [place] [facility] 08/25/21 Ervin Schroeder MD Referring Provider Family Medicine 03/24/[address] [facility] [address] [place], [place] [phone] documented as of this encounter
--- OUTSIDE RECORDS SUMMARY | 2022-02-12 20:30 | XMS_ITS | Encounter Summary ---
:1990 Author Organization [facility] Address [address] [place] [address] Care Team Providers Name Role Phone Elsewhere, Pcp Primary Care Provider Unavailable Reason for Visit Reason Comments Medication Question Encounter Details Date Type Department Care Team Description 08/31/2021 Nurse Triage Department of [facility] Nabila [facility] [facility] Question Medicine, [facility], in [address] [place] [phone] [place] [address] [phone] Social History Tobacco Use Types Packs/Day Years [...] attend roman catholic or Patient refused 2021 jain services? 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 ALTERNATE DISPOSITION - CALL DOCTOR WITHIN 24 HOURS: * The patient's healthcare provider (doctor, MANUFACTURING SUPPORT ENGINEER, or PA) may be able to handle [...] Transplant 2 Appointment Radiology Matthew Jerome 2 Jennifer M.B.B.SSuma, Lilian [address] [place] [phone] Appointment Gastroenterology and Adrianne, 2 Hepatology Yue Burciaga M.D. [address] [place] [phone] Virtual Visit Transplant Matthew Jerome 2 Jennifer M.B.B.SSuma, Lilian [address] [place] [address] [phone] Office Visit Gastroenterology and Matthew Jerome 2 Hepatology Elizabeth Rodriguez.B.B.SSuma, Lilian [address] [place] [phone] Appointment Radiology LuisMatthew abdul 2 Y M.B.B.SSuma, Lilian [address] [place] [address] [phone] Hospital Gastroenterology and Matthew Jerome Cirrhos is Alcoholic (HCC) 2 Encounter Hepatology Elizabeth Rodriguez.B.B.SSuma, Lilian [address] [place] [phone] Anesthesia Event Gastroenterology and Rl, 2 Hepatology Ervin Burgos M.D. [address] [place] [phone] Surgery Gastroenterology and Mousa, Matthew ESOPHAG OGASTRODUODENOSCOPY 2 Hepatology Tyrell Rodriguez M.D. [address] [place] [phone] Scheduled Procedures Name Priority Associated Diagnoses Date/Time ESOPHAGOGASTRODUODENOSCOPY Cirrhosis Alc oholic (HCC) 03/20/2022 8:45 AM BRIDGE BUILDER Hypertension Portal (HCC) documented as of this encounter Visit Diagnoses Not on filedocumented in this encounter Additional Health Concerns Infection Onset Date Last Indicated Resolved Time COVID19 08/29/2021 08/29/2021 09/18/2021 8:31 AM CDT documented as of this encounter Care Teams Real Estate Closing Coordinator Relationship Specialty Start Date End Date Elsewhere, Pcp PCP - General Family Medicine 03/10/20 11/30/21 [facility] [place] [facility] 08/25/21 Ervin Schroeder MD Referring Provider Family Medicine 03/24/[address] [place] [address] documented as of this encounter
--- OUTSIDE RECORDS SUMMARY | 2022-02-12 20:30 | XMS_ITS | Encounter Summary ---
:1990 Author Organization [facility] Address [address] [place] [address] Care Team Providers Name Role Phone Elsewhere, Pcp Primary Care Provider Unavailable Encounter Details Date Type Department Care Team Description 09/03/2021 Clinical Communication Division of Marco Zimmerman, [facility] [address] [place] [address] [place] [phone] [place], [place] [phone] (Work) [phone] Social History Tobacco Use Types Packs/Day Years [...] you attend confucianist or Patient refused 2021 gnosticist services? 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 - 09/03/2021 5:26 PM CDT [facility] TELEPHONE COMMUNICATION NOTE Office Aide: None The patient was called regarding a [...] your primary care provider or present to [facility] for evaluation. Treatment Options Discussion [...] references were used: Nursing or Provider judgement, [facility], [facility] Protocols Marco Alberto M.D. [place] COVID Care Team [facility] and [facility] documented in this encounter Plan of Treatment Upcoming Encounters Date Type Specialty Care Team Description Telemedicine Transplant 2 Appointment Radiology Matthew Jerome 2 YTyrell M.D. [address] [place] [phone] Appointment Gastroenterology and Adrianne, 2 Hepatology Yue Burciaga M.D. [address] [place] [phone] Virtual Visit Transplant Matthew Jerome 2 Tyrell Rodriguez M.D. [address] [place] [phone] Office Visit Gastroenterology and LuisNew abdular 2 Hepatology Tyrell Rodriguez M.D. [address] [place] [phone] Appointment Radiology Matthew Jerome 2 Tyrell Rodriguez M.D. [address] [place] [phone] Hospital Gastroenterology and Matthew Jerome Cirrhos is Alcoholic (HCC) 2 Encounter Hepatology Tyrell Rodriguez M.D. [address] [place] [phone] Anesthesia Event Gastroenterology and Rl, 2 Hepatology Ervin Burgos M.D. [address] [place] [phone] Surgery Gastroenterology and [place] Jeromear ESOPHAG OGASTRODUODENOSCOPY 2 Hepatology Tyrell Rodriguez M.D. 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
--- OUTSIDE RECORDS SUMMARY | 2022-02-12 20:30 | XMS_ITS | Encounter Summary ---
:1990 Author Organization [facility] Address [address] [place] [address] Care Team Providers Name Role Phone Elsewhere, Pcp Primary Care Provider Unavailable Encounter Details Date Type Department Care Team Description 09/12/2021 Clinical Communication Department of Matthew Jerome Gastroenterology in M.BJhoan, Joshua Kru[address] [phone] Social History Tobacco Use Types Packs/Day Years [...] you attend adventist or Patient refused 2021 holiness services? 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 - 09/15/2021 9:47 PM CDT Thanks so much Olga Telephone Encounter - Priscilla Castorena - 09/12/2021 12:02 PM CDT Patient was supposed to have an appointment for PMR CONS PT at [facility]. The appt has been cancelleddue to the [...] Radiology Matthew Jerome 2 Vik RodriguezBGraeme, Lilian [address] [place] [address] [phone] Appointment Gastroenterology demian Silver 2 Hepatology Yue Burciaga M.D. [address] [place] [phone] Virtual Visit Transplant Matthew Jerome 2 Tyrell Rodriguez M.D. [address] [place] [address] [phone] Office Visit Gastroenterology and Matthew Jerome 2 Hepatology Vik RodriguezBLilian Bedolla [address] [place] [phone] Appointment Radiology Matthew Jerome 2 YJoshuaBSumaBLilian Bedolla [address] [place] [phone] Hospital Gastroenterology and Matthew Jerome Cirrhos is Alcoholic (HCC) 2 Encounter Hepatology Joshua RodriguezB.B.Lilian [place] [address] [place] [phone] Anesthesia Event Gastroenterology and Rl, 2 Hepatology Ervin Burgos M.D. [address] [place] [phone] Surgery Gastroenterology and Matthew Jerome ESOPHAG OGASTRODUODENOSCOPY 2 Hepatology Tyrell Rodriguez M.D. [address] [place] [phone] Scheduled Procedures Name Priority Associated Diagnoses Date/Time ESOPHAGOGASTRODUODENOSCOPY Cirrhosis Alc oholic (HCC) 03/20/2022 8:45 AM GRAPHIC ARTIST Hypertension Portal (HCC) documented as of this encounter Visit Diagnoses Diagnosis Edema Leg - Primary Cirrhosis Alcoholic (HCC) Cirrhosis Alcoholic (HCC) Hypertension Portal (HCC) documented in this encounter Additional Health Concerns Infection Onset Date Last Indicated Resolved Time COVID19 08/29/2021 08/29/2021 09/18/2021 8:31 AM CDT documented as of this encounter Care Teams Synthetic Chemist Relationship Specialty Start Date End Date Elsewhere, Pcp PCP - General Family Medicine 03/10/20 11/30/21 [facility] [place] lab 08/25/21 Ervin Schroeder MD Referring Provider Family Medicine 03/24/[address] [place] [address] documented as of this encounter
--- OUTSIDE RECORDS SUMMARY | 2022-02-12 20:30 | XMS_ITS | Encounter Summary ---
:1990 Author Organization [facility] Address [address] [place] [address] Care Team Providers Name Role Phone Elsewhere, Pcp Primary Care Provider Unavailable Encounter Details Date Type Department Care Team Description 08/31/2021 Nurse Triage Department of Family Naila Walters R.N. Medicine, [facility], in [address] [place], [place] [address] [place] [phone] [place] [address] [phone] Social History Tobacco Use Types Packs/Day Years [...] you attend jainism or Patient refused 2021 restorationism services? Do [...] or the highest technical, or vocational p Ventrixsallie degree you have received? 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 - 08/31/2021 10:46 AM CDT Patient reports receiving a text message from [place] [facility] regarding her recent positive Covid test. The text provided a link which asked for a code. Patient is seeking more information regarding code. Unable to answer question at this time. Patient denies any worsening symptoms for triage at this time. Patient will check her email for more information from the [facility]. documented in this encounter Plan of Treatment Upcoming Encounters Date Type Specialty Care Team Description Telemedicine Transplant 2 Appointment Radiology Matthew Jerome 2 YTyrell M.D. [address] [place] [address] [phone] Appointment Gastroenterology and Adrianne, 2 Hepatology Yue Burciaga M.D. [address] [place] [address], [place] [phone] Virtual Visit Transplant Matthew Jerome 2 Tyrell Rodriguez M.D. [address] [place] [phone] Office Visit Gastroenterology and Matthew Jerome 2 Hepatology Tyrell Rodriguez M.D. [address] [place] [phone] Appointment Radiology LuisMatthew abdul 2 Tyrell Rodriguez M.D. [address] [place] [phone] Hospital Gastroenterology and Matthew Jerome Cirrhos is Alcoholic (HCC) 2 Encounter Hepatology Tyrell Rodriguez M.D. [address] [place] [phone] Anesthesia Event Gastroenterology and Rl, 2 Hepatology Evrin Burgos M.D. [address] [place] [phone] Surgery Gastroenterology and Matthew Jerome ESOPHAG OGASTRODUODENOSCOPY 2 Hepatology Tyrell Rodriguez M.D. [address] [place] [phone] Scheduled Procedures Name Priority Associated Diagnoses Date/Time ESOPHAGOGASTRODUODENOSCOPY Cirrhosis Alc oholic (HCC) 03/20/2022 8:45 AM PLASTERING CONTRACTOR Hypertension Portal (HCC) documented as of this encounter Visit Diagnoses Not on filedocumented in this encounter Additional Health Concerns Infection Onset Date Last Indicated Resolved Time COVID19 08/29/2021 08/29/2021 09/18/2021 8:31 AM CDT documented as of this encounter Care Teams X Ray Operator Relationship Specialty Start Date End Date Elsewhere, Pcp PCP - General Family Medicine 03/10/20 11/30/21 [facility] [place] [facility] 08/25/21 Ervin Schroeder MD Referring Provider Family Medicine 03/24/[address] [place] [address] documented as of this encounter
--- OUTSIDE RECORDS SUMMARY | 2022-02-12 20:30 | XMS_ITS | Encounter Summary ---
:1990 Author Organization [facility] Address [address] [place] [address] Care Team Providers Name Role Phone Elsewhere, Pcp Primary Care Provider Unavailable Encounter Details Date Type Department Care Team Description 09/05/2021 Clinical Communication Department of Kerry Naranjo Gastroenterology in [place], [place] C.N.P., M.S.N. [address] [facility] [address] [place] [address] [place], [place] [phone] Social History Tobacco Use Types Packs/Day [...] you attend confucianism or Patient refused 2021 restorationism services? 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 [address] [place] [phone] Appointment Gastroenterology demian Silver 2 Hepatology Yue Burciaga M.D. [address] [place] [phone] Virtual Visit Transplant Queenie Matthew 2 YTyrell M.D. [address] [place] [address] [phone] Office Visit Gastroenterology and Queenie Matthew 2 Hepatology Tyrell Rodriguez M.D. [address] [place] [address] [phone] Appointment Radiology Matthew Jerome 2 YTyrell M.D. [address] [place] [address] [phone] Hospital Gastroenterology and QueenieNewar Cirrhos is Alcoholic (HCC) 2 Encounter Hepatology Tyrell Rodriguez M.D. [address] [place] [address] [phone] Anesthesia Event Gastroenterology and Rl, 2 Hepatology Ervin Burgos M.D. [address] [place] [address], [place] [phone] Surgery Gastroenterology and Mousa, Matthew ESOPHAG OGASTRODUODENOSCOPY 2 Hepatology YTyrell M.D. [address] [place] [phone] Scheduled Procedures Name Priority Associated Diagnoses Date/Time ESOPHAGOGASTRODUODENOSCOPY Cirrhosis Alc oholic (HCC) 03/20/2022 8:45 AM PHOTO LAB SPECIALIST Hypertension Portal (HCC) documented as of this encounter Results (ABNORMAL) Prothrombin Time (PT) (02/12/2022 10:16 AM CDT) [facility] gist Method Time Signature Prothrombin 30.8 (H) 9.4 [...] Address City/State/ZIP Code Phon e Number [facility] - [address] [place], [place] [address] [place] [address] [facility] [address] documented in this [...] as of this encounter Care Teams Customer Complaint Service Supervisor Relationship Specialty Start Date End Date Elsewhere, Pcp PCP - General Family Medicine 03/10/20 11/30/21 [facility] 08/25/21 Ervin Schroeder MD Referring Provider Family Medicine 03/24/[address] [place] [address] documented as of this encounter
--- OUTSIDE RECORDS SUMMARY | 2022-02-12 20:31 | XMS_ITS | Encounter Summary ---
:1990 Author Organization [facility] Address [address] [place] [address] Care Team Providers Name Role Phone Elsewhere, Pcp Primary Care Provider Unavailable Encounter Details Date Type Department Care Team Description 08/26/2021 Clinical Communication Department of Felicita Spicer Gastroenterology in E, L[facility]P.N. [place], [place] [phone] [place] [address] ([facility]) [place] [phone] Social History Tobacco Use Types Packs/Day [...] you attend denominational or Patient refused 2021 buddhist services? 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 Provided direct [...] CDT Patient in process of discharge from [facility] (see note below). She did receive vitamin [...] and request this be sent to the [facility] in [place]. Upon chart review of past documentation the following was noted by Kerry Naranjo. I have ordered Vitamin K 5 mg X 7 days, to take orally. Then follow up by repeat PT/INR??on the 8th day. Please call pt and ask to get the lab at [facility] in [place]; this allows access to results. Past attempts [...] the patient is currently in patient at [facility] and likely would not be able to start the Rx tonight anyway. Please advise how patient should take vitamin K as she is scheduled for EGD on 09/01/21. A new Rx would need to be sent to the [facility] in [place] as the group underwriter checked with the pharmacy and the they do not have the vitamin K Rx on file. documented in this encounter Plan of Treatment Upcoming Encounters Date Type Specialty Care Team Description Telemedicine Transplant 2 Appointment Radiology Matthew Jerome 2, M.B.B.S., M.D. [address] [place] [phone] Appointment Gastroenterdina and Adrianne, 2 Hepatology Yue Burciaga M.D. [address] [place] [phone] Virtual Visit Transplant Matthew Jerome 2 YTyrell M.D. [address] [place] [phone] Office Visit Gastroenterology and Matthew Jerome 2 Hepatology Tyrell Rodriguez M.D. [address] [place] [phone] Appointment Radiology Matthew Jerome 2 YTyrell M.D. [address] [place] [phone] Hospital Gastroenterology and Matthew Jerome Cirrhos is Alcoholic (HCC) 2 Encounter Hepatology Tyrell Rodriguez M.D. [address] [place] [phone] Anesthesia Event Gastroenterology and Rl, 2 Hepatology Ervin Burgos M.D. [address] [place] [address] [phone] Surgery Gastroenterology and Matthew Jerome ESOPHAG OGASTRODUODENOSCOPY 2 Hepatology Tyrell Rodriguez M.D. [address] [place] [phone] Scheduled Procedures Name Priority Associated Diagnoses Date/Time ESOPHAGOGASTRODUODENOSCOPY Cirrhosis Alc oholic (HCC) 03/20/2022 8:45 AM PRODUCT TEST SPECIALIST Hypertension Portal (HCC) documented as of this encounter Visit Diagnoses Not on filedocumented in this encounter Additional Health Concerns Infection Onset Date Last Indicated Resolved Time COVID19 Pending 08/29/2021 08/29/2021 08/29/2021 11:29 PM CDT COVID19 08/29/2021 08/29/2021 09/18/2021 8:31 AM CDT documented as of this encounter Care Teams Supervisor Unloading Relationship Specialty Start Date End Date Elsewhere, Pcp PCP - General Family Medicine 03/10/20 11/30/21 [facility] [place] [facility] 08/25/21 Ervin Schroeder MD Referring Provider Family Medicine 03/24/[address] [place] [address] documented as of this encounter
--- OUTSIDE RECORDS SUMMARY | 2022-02-12 20:31 | XMS_ITS | Encounter Summary ---
:1990 Author Organization [facility] Address [address] [place] [address] Care Team Providers Name Role Phone Elsewhere, Pcp Primary Care Provider Unavailable Encounter Details Date Type Department Care Team Description 08/13/2021 Orders Only Department of Mousa, Matthew Y, Ascites Embedded Hardware Engineer silva Gastroenterology in [place] (Primary Dx) [place], [place] [address] [facility] [address] [place] [phone] Social History Tobacco Use Types Packs/Day Years [...] you attend adventist or Patient refused 2021 baptist services? 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 [address] [place] [address] [phone] Appointment Gastroenterology and [place], 2 Hepatology Yue Burciaga M.D. [address] [place] [phone] Virtual Visit Transplant Matthew Jerome 2, M.B.B.S., M.D. [address] [place] [address] [phone] Office Visit Gastroenterology and Matthew Jerome 2 Hepatology Tyrell Rodriguez, Lilian [address] [place] [address] [phone] [facility]ment [facility] YTyrell, Lilian [address] [place] [phone] [facility] Gastroenterology and [facility] Cirrhos is Alcoholic (HCC) 2 Encounter Hepatology Tyrell Rodriguez, Lilian [address] [place] [phone] Anesthesia Event Gastroenterology and [facility], 2 Hepatology Ervin Burgos M.D. [address] [place] [address] [phone] Surgery Gastroenterology and [facility] ESOPHAG OGASTRODUODENOSCOPY 2 Hepatology Tyrell Rodriguez M.D. [address] [place] [phone] Scheduled Procedures Name Priority Associated Diagnoses Date/Time ESOPHAGOGASTRODUODENOSCOPY Cirrhosis Alc oholic (HCC) 03/20/2022 8:45 AM REACTOR OPERATOR Hypertension Portal (HCC) documented as of this encounter Visit Diagnoses Diagnosis Ascites Chronic - Primary Cirrhosis Alcoholic (HCC) Cirrhosis Alcoholic (HCC) Hypertension Portal (HCC) documented in this encounter Care Teams Flight Mechanic Relationship Specialty Start Date End Date Elsewhere, Pcp PCP - General Family Medicine 03/10/20 11/30/21 Ervin Schroeder MD Referring Provider Family Medicine 03/24/[address] [place] [phone] documented as of this encounter
--- OUTSIDE RECORDS SUMMARY | 2022-02-12 20:31 | XMS_ITS | Encounter Summary ---
:1990 Author Organization [facility] Address [address] [place] [address] Care Team Providers Name Role Phone Elsewhere, Pcp Primary Care Provider Unavailable Encounter Details Date Type Department Care Team Description 08/27/2021 Orders Only Department of Mousa, Matthew Y, Cirrhosis [facility] Gastroenterology in [place] ([facility]) (Primary Dx) [place], [place] [address] [facility] [address] [place] [phone] Social History Tobacco Use Types Packs/Day Years [...] you attend hindu or Patient refused 2021 alevism services? 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 [address] [place] [phone] Virtual Visit Transplant Matthew Jerome 2 Tyrell Rodriguez M.D. [address] [place] [phone] Office Visit Gastroenterology and Matthew Jerome 2 Hepatology Natanael RodriguezGraeme, Lilian [address] [place] [address] [phone] Appointment Radiology Matthew Jerome 2 YTyrell, Lilian [address] [place] [phone] Hospital Gastroenterology and CoMatthew abdul Cirrhos is Alcoholic (HCC) 2 Encounter Hepatology Tyrell Rodriguez, Lilian [address] [place] [phone] Anesthesia Event Gastroenterology and [facility], 2 Hepatology Ervin Burgos M.D. [address] [place] [address] [phone] Surgery Gastroenterology and Queenie Matthew ESOPHAG OGASTRODUODENOSCOPY 2 Hepatology Tyrell Rodriguez, Lilian [address] [place] [phone] Scheduled Procedures Name Priority Associated Diagnoses Date/Time ESOPHAGOGASTRODUODENOSCOPY Cirrhosis Alc oholic (HCC) 03/20/2022 8:45 AM SALES STRATEGY MANAGER Hypertension Portal (HCC) documented as of this encounter Visit Diagnoses Diagnosis Cirrhosis Alcoholic (HCC) - Primary Cirrhosis Alcoholic (HCC) Cirrhosis Alcoholic (HCC) Hypertension Portal (HCC) documented in this encounter Care Teams Microbiology Supervisor Relationship Specialty Start Date End Date Elsewhere, Pcp PCP - General Family Medicine 03/10/20 11/30/21 [facility] [place] 08/25/21 Ervin Schroeder MD Referring Provider Family Medicine 03/24/[address] [place] [phone] documented as of this encounter
--- OUTSIDE RECORDS SUMMARY | 2022-02-12 20:31 | XMS_ITS | Encounter Summary ---
:1990 Author Organization [facility] Address [address] [place] [address] Care Team Providers Name Role Phone Elsewhere, Pcp Primary Care Provider Unavailable Reason for Referral Transplant (Routine) - Closed Specialty Diagnoses / Procedures Referred By Contact Refer brianda To Contact Transplant Surgery / [facility] Lilian, M.P.H. [address] [place] [address] Referral ID Status Reason Start Date Expiration Date Visits Requ ested Visits Authorized [id number] Closed 08/26/2021 08/26/2022 1 1 ransplant (Routine) - Authorized Specialty Diagnoses / Procedures Referred By Contact Refer brianda To Contact Transplant Surgery / Diagnoses Cirrhosis Alcoholic (HCC) Abnormal Liver Function Test Ascites Pretransplant Recipient Evaluation Exam Preoperative Exam Warren Connor [facility] Transplant Lilian, M.P.H. [address] [place] [address] Referral ID Status Reason Start Date Expiration Date Visits V isits Requested Authorized [id number] Authorized 08/25/2021 08/25/2022 1 1 utpatient (Routine) - Closed Specialty Diagnoses / Procedures Referred By Contact Refer red To Contact Diagnoses Cirrhosis Alcoholic (HCC) Abnormal Liver Function Test Ascites Pretransplant Recipient Evaluation Exam Preoperative Exam Warren Connor M.D., [facility] Procedures BMD Bone Density Spine Hips M.P.H. [address] [place] [address] Referral ID Status Reason Start Date Expiration Date Visits Requ ested Visits Authorized [id number] Closed 08/25/2021 08/25/2022 1 1 ransplant (Routine) - Closed Specialty Diagnoses / Procedures Referred By Contact Refer red To Contact Transplant Surgery / Diagnoses Cirrhosis Alcoholic (HCC) Abnormal Liver Function Test Ascites Pretransplant Recipient Evaluation Exam Preoperative Exam Warren Connor [facility] Transplant M.Jeri, M.P.H. [address] [place] [address] Referral ID Status Reason Start Date Expiration Date Visits Requ ested Visits Authorized [id number] Closed 08/25/2021 08/25/2022 1 1 ransplant (Routine) - Closed Specialty Diagnoses / Procedures Referred By Contact Refer red To Contact Transplant Surgery / Diagnoses Cirrhosis Alcoholic (HCC) Abnormal Liver Function Test Ascites Pretransplant Recipient Evaluation Exam Preoperative Exam Warren Connor [facility] Transplant M.Jeri, M.P.H. [address] [place] [address] Referral ID Status Reason Start Date Expiration Date Visits Requ ested Visits Authorized [id number] Closed 08/25/2021 08/25/2022 1 1 utpatient (Routine) - Closed Specialty Diagnoses / Procedures Referred By Contact Refer red To Contact Preventive Medicine Diagnoses Cirrhosis Alcoholic (HCC) Abnormal Liver Function Test Ascites Pretransplant Recipient Evaluation Exam Preoperative Exam Warren Connor [facility] Lilian, M.P.H. [address] [place] [address] Referral ID Status Reason Start Date Expiration Date Visits Requ ested Visits Authorized [id number] Closed 08/25/2021 08/25/2022 1 1 utpatient (Routine) - Closed Specialty Diagnoses / Procedures Referred By Contact Refer red To Contact Pulmonary Medicine / Diagnoses Cirrhosis Alcoholic (HCC) Abnormal Liver Function Test Ascites Pretransplant Recipient Evaluation Exam Preoperative Exam Warren Connor [facility] Nicotine Dependence Lilian, M.P.H. [address] [place] [address] Referral ID Status Reason Start Date Expiration Date Visits Requ ested Visits Authorized [id number] Closed 08/25/2021 08/25/2022 1 1 utpatient (Routine) - Closed Specialty Diagnoses / Procedures Referred By Contact Refer red To Contact Diagnoses Cirrhosis Alcoholic (HCC) Abnormal Liver Function Test Ascites Pretransplant Recipient Evaluation Exam Preoperative Exam Warren Connor M.D., [facility] Procedures ECG 12 Lead M.P.H. [address] [place] [address] Referral ID Status Reason Start Date Expiration Date Visits Requ ested Visits Authorized [id number] Closed 08/25/2021 08/25/2022 1 1 utpatient (Routine) - Closed Specialty Diagnoses / Procedures Referred By Contact Refer red To Contact Diagnoses Cirrhosis Alcoholic (HCC) Abnormal Liver Function Test Ascites Pretransplant Recipient Evaluation Exam Preoperative Exam Warren Connor M.D., [facility] Procedures Short renal clearance: Iothalamate (Renal Studies Unit) M.P.H. [address] [place] [address] Referral ID Status Reason Start Date Expiration Date Visits Requ ested Visits Authorized [id number] Closed 08/25/2021 08/25/2022 1 1 Specialty Diagnoses / Procedures Referred By Contact Refer red To Contact [facility] [address] [place] [address] Referral ID Status Reason Start Date Expiration Date Visits Requ ested Visits Authorized utpatient (Routine) - Closed Specialty Diagnoses / Procedures Referred By Contact Refer red To Contact Pharmacy Diagnoses Cirrhosis Alcoholic (HCC) Abnormal Liver Function Test Ascites Pretransplant Recipient Evaluation Exam Preoperative Exam Warren Connor M.D., [facility] M.P.H. [address] [place] [address] Referral ID Status Reason Start Date Expiration Date Visits Requ ested Visits Authorized [id number] Closed 08/25/2021 08/25/2022 1 1 ransplant (Routine) - Closed Specialty Diagnoses / Procedures Referred By Contact Refer red To Contact Transplant Surgery / Diagnoses Cirrhosis Alcoholic (HCC) Abnormal Liver Function Test Ascites Pretransplant Recipient Evaluation Exam Preoperative Exam Warren Connor [facility] Transplant Lilian, M.P.H. [address] [place] [address] Referral ID Status Reason Start Date Expiration Date Visits Requ ested Visits Authorized [id number] Closed 08/25/2021 08/25/2022 1 1 ransplant (Routine) - Closed Specialty Diagnoses / Procedures Referred By Contact Refer red To Contact Transplant Surgery / Diagnoses Cirrhosis Alcoholic (HCC) Abnormal Liver Function Test Ascites Pretransplant Recipient Evaluation Exam Preoperative Exam Warren Connor [facility] Transplant Lilian, M.P.H. [address] [place] [address] Referral ID Status Reason Start Date Expiration Date Visits Requ ested Visits Authorized [id number] Closed 08/25/2021 08/25/2022 1 1 ransplant (Routine) - Closed Specialty Diagnoses / Procedures Referred By Contact Refer red To Contact Transplant Surgery / Diagnoses Cirrhosis Alcoholic (HCC) Abnormal Liver Function Test Ascites Pretransplant Recipient Evaluation Exam Preoperative Exam Warren Connor [facility] Transplant Lilian, M.P.H. [address] [place] [address] Referral ID Status Reason Start Date Expiration Date Visits Requ ested Visits Authorized [id number] Closed 08/25/2021 08/25/2022 1 1 ransplant (Routine) - Closed Specialty Diagnoses / Procedures Referred By Contact Refer red To Contact Transplant Surgery / Diagnoses Cirrhosis Alcoholic (HCC) Abnormal Liver Function Test Ascites Pretransplant Recipient Evaluation Exam Preoperative Exam Warren Connor [facility] Transplant Lilian, M.P.H. [address] [place] [address] Referral ID Status Reason Start Date Expiration Date Visits Requ ested Visits Authorized [id number] Closed 08/25/2021 08/25/2022 1 1 ransplant (Routine) - Closed Specialty Diagnoses / Procedures Referred By Contact Refer red To Contact Transplant Surgery / Diagnoses Cirrhosis Alcoholic (HCC) Abnormal Liver Function Test Ascites Pretransplant Recipient Evaluation Exam Preoperative Exam Warren Connor [facility] Transplant Lilian, M.P.H. [address] [place] [address] Referral ID Status Reason Start Date Expiration Date Visits Requ ested Visits Authorized [id number] Closed 08/25/2021 08/25/2022 1 1 Reason for Visit Reason Comments Referral - Liver Txp Phone screen Appointment Request (Routine) - Pending Review Specialty Diagnoses / Procedures Referred By Contact Refer red To Contact Transplant Diagnoses [facility] Procedures Referral ID Status Reason Start Date Expiration Date Visits V isits Requested Authorized [id number] Pending 08/21/2021 08/21/2022 1 1 Review Encounter Details Date Type Department Care Team Description 08/25/2021 Nurse Only Laney Canela Re ferral - Liver Txp [facility] M.A.N., R.N., (Phone screen) and Clinical Regeneration [facility] in [facility] [phone] [address] [facility] (Work) [place] [address] Social History Tobacco Use Types Packs/Day [...] you attend bahai or Patient refused 2021 latter-day services? Do [...] or the highest technical, or vocational p navos health degree you have received? 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 Roge Schroeder [facility] Location: [facility] Client Technical Professional: Kerry Naranjo NP /Dr. Jerome Facility: [facility] Location: [facility] Fax: Preferred lab: [facility] Lab Location: [place] Fax: Patient online messaging interest/discussed? [x] Yes [] No Comment: Additional orders needed at time of evaluation: hx eating disorder Melon Packer Utilized: [] Yes [x] No Prior to starting the phone screen process, the following information was verbalized to educate the patient on the Evaluation Process. Received authorization for liver transplant referral. Information for Liver Transplant Candidates [id number] was reviewed with the patient via telephone [...] Appointment Radiology Matthew Jerome 2 YTyrell, Lilian [address] [place] [phone] Appointment Gastroenterology and [place], 2 Hepatology Yue Burciaga M.D. [address] [place] [phone] Virtual Visit Transplant Queenie Matthew 2 YTyrell M.D. [address] [place] [phone] Office Visit Gastroenterology and [facility] 2 Hepatology Tyrell Rodriguez M.D. [address] [place] [phone] Appointment Radiology Queenie Matthew 2 YTyrell M.D. [address] [place] [phone] Hospital Gastroenterology and [facility] Cirrhos is Alcoholic (HCC) 2 Encounter Hepatology Tyrell Rodriguez M.D. [address] [place] [phone] Anesthesia Event Gastroenterology and Rl, 2 Hepatology Ervin Burgos M.D. 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 Portal (HCC) Scheduled Referrals Name Type Priority Associated Order Schedule Diagnoses Transplant - Outpatient Referral Routine Cirrhosis Alcoholic E xpected: Financial assessment (HCC) 09/22/2021 consult (clinic) Abnormal Liver (Approxim ate), Function Test Expires: Ascites 12/01/2022 Pretransplant Recipient Evaluation Exam Preoperative Exam Transplant - Lung Outpatient Referral Routine Cirrhosis Alcoho lic Expected: transplant consult ([facility]) 09/22/2021 [facility]) Abnormal Liver (Approximate) , Function Test Expires: Ascites 12/01/2022 Pretransplant Recipient Evaluation Exam Preoperative Exam Transplant - Medical Outpatient Referral Routine Cirrhosis Alc oholic Expected: nutrition therapy ([facility]) 09/22/2021 consult (clinic) Abnormal Liver (Approxim ate), Function Test Expires: Ascites 12/01/2022 Pretransplant Recipient Evaluation Exam Preoperative Exam Transplant - Social Outpatient Referral Routine Cirrhosis Alco holic Expected: work consult ([facility]) 09/22/2021 ([facility]) Abnormal Liver (Approximate) , Function Test Expires: Ascites 12/01/2022 Pretransplant Recipient Evaluation Exam Preoperative Exam Transplant - Surgery Outpatient Referral Routine Cirrhosis Alc oholic Expected: consult (clinic) ([facility]) 09/22/2021 Abnormal Liver (Approximate) , Function Test Expires: Ascites 12/01/2022 Pretransplant Recipient Evaluation Exam Preoperative Exam Pharmacy - Outpatient Referral Routine Cirrhosis Alcoholic E xpected: Medication therapy ([facility]) 09/22/2021 management - Abnormal Liver (Approximate) , transplant consult Function Test Expires: (clinic) Ascites 12/01/2022 Pretransplant Recipient Evaluation Exam Preoperative Exam Transplant - Liver Outpatient Referral Routine Cirrhosis Alcoh olic Expected: pre education visit ([facility]) 09/22/2021 ([facility]) Abnormal Liver (Approximate) , Function Test Expires: Ascites 12/01/2022 Pretransplant Recipient Evaluation Exam Preoperative Exam Nicotine Dependence Outpatient Referral Routine Cirrhosis Alco holic Expected: - Counseling consult ([facility]) 10/01/2021 (clinic) Abnormal Liver (Approximate) , Function Test Expires: Ascites 12/01/2022 Pretransplant Recipient Evaluation Exam Preoperative Exam Preventive Medicine Outpatient Referral Routine Cirrhosis Alco holic Expected: - Preventive ([facility]) 10/01/2021 services consult Abnormal Liver (Approxim ate), (clinic) Function Test Expires: Ascites 12/01/2022 Pretransplant Recipient Evaluation Exam Preoperative Exam Transplant - Outpatient Referral Routine Cirrhosis Alcoholic E xpected: Psychiatry and ([facility]) 09/22/2021 Psychology consult Abnormal Liver (Approx imate), (clinic) Function Test Expires: Ascites 12/01/2022 Pretransplant Recipient Evaluation Exam Preoperative Exam Transplant - Outpatient Referral Routine Cirrhosis Alcoholic E xpected: Psychiatry and ([facility]) 09/22/2021 Psychology consult Abnormal Liver (Approx imate), (clinic) Function Test Expires: Ascites 12/01/2022 Pretransplant Recipient Evaluation Exam Preoperative Exam Transplant - Outpatient Referral Routine Cirrhosis Alcoholic E xpected: Psychiatry and ([facility]) 09/22/2021, Psychology consult Abnormal Liver Expires : [...] Mineral Density (BMD) analysis perf ormed on [employer] with serial number [id number]. ? FINDINGS: Left Hip: Femur Neck: BMD [...] Mineral Density (BMD) analysis perf ormed on [employer] with serial number [id number]. FINDINGS: Left Hip: Femur Neck: BMD = [...] CDT) P athologist Signature FVC 4.04 L [facility] FVC% 111 % [facility] FVCLLN 2.88 L [facility] FEV1 3.62 L [facility] FEV1% 118 % [facility] SU[facility] [id number] 2.45 L [facility] FEV1/FVC 90 % [facility] SU[facility] FEV1/FVCLLN 73 % [facility] FEF 25-75 5.30 L/sec [facility] TPP72-19% 154 % [facility] SU[facility] [id number] 2.20 L/sec [facility] SVC 4.19 L [facility] SU[facility] RV 1.17 L [facility] SU[facility] RVULN 2.33 L [facility] TLC 5.36 L [facility] TLC% 111 % [facility] SU[facility] TLCLLN 3.47 L [facility] SU[facility] RV/TLC 22 % [facility] SU[facility] RV/TLC% 72 % [facility] SU[facility] RV/TLCuln 44 % [facility] SU[facility] DLCO 16.63 ml/min/mmHg [facility] DLCO% 77 % [facility] DLCOlln 15.76 ml/min/mmHg [facility] DLCOc 20.09 ml/min/mmHg [facility] DLCOc% 94 % [facility] SU[facility] VA 5.32 L [facility] SU[facility] VA% 115 % [facility] VAlln 3.76 L [facility] Height 159.00 [facility] Weight in Kg 59.70 [facility] BMI 23.6 [facility] Specimen (Source) Anatomical Collection Method Collection Time Re ceived Time Location / / Volume Laterality 10/07/2021 2:32 PM CDT Impressions [facility] - 10/10/2021 8:25 AM C DT [...] M.D., M.P.H. PFT ORDERABLES Performing Organization Address City/[facility]/ZIP Code Phon e Number [facility] NA Ethyl Glucuronide Screen with Reflex, Urine (09/30/2021 8:23 AM CDT) [facility] Method Time Signature Ethyl Negative Cutoff: 09/30/2021 [facility] Glucuronide Scrn 500 ng/mL 11:12 AM CDT w/Reflex, U Comment: ----ADDITIONAL INFORMATION---- This test was developed and its performa nce characteristics determined by [facility] in a manner consistent with CLIA requirements. This test has not been cleared or approved by the [place] and Drug Administration. Specimen Anatomical Collection Method Collection Time Receive d Time (Source) Location / / Volume Laterality Urine (Urine, 09/30/2021 8:23 AM 10/01/19 22 9:59 Midstream) CDT AM CDT Warren Connor M.D., M.P.H. LAB URINE ORDERABLES Performing Organization Address City/[facility]/ZIP Code Phon e Number [facility] [address] [place], [place] [address] [facility] [place] [address] Laboratory Medicine and Pathology [address] [place] (ABNORMAL) Bacterial Culture, Aerobic + Susc, Urine (09/30/2021 8:23 AM CDT) Component Value Ref Test Analysis Performed At [facility] Method Time Signature Urine Culture STAPHYLOCOCCUS [...] City/State/ZIP Code Phon e Number [facility] - [address] [place] [address] [facility] [address] [facility] [address] [facility] (ABNORMAL) Drug Abuse Survey with Confirmation, Panel 9, Urine (09/30/2021 8:23 AM CDT) Component Value Ref Test Analysis Performed At [facility] Range Method Time Signature Alcohol Negative [...] Metabolite Negative Cutoff: 300 09/30/2021 11:12 AM SDS ng/mL CDT Opiates Negative Cutoff: 300 09/30/2021 11:12 AM SDS ng/mL CDT Phencyclidine Negative Cutoff: 25 ng/mL 09/30/2021 11:12 AM [facility] CDT Tetrahydrocannabinol Presumptive Positive Cutoff: 50 ng/mL 09/30/2021 11:12 AM [facility] (A) CDT Comment: This immunoassay [...] Its performance characteristics were determi foreign by [facility] in a manner consistent with [...] City/State/ZIP Code Phon e Number [facility] [address] TA Garber MD [address] [facility] [address] Laboratory Medicine and Pathology [address] [place] Urinalysis with Microscopic: Urine, Midstream (09/30/2021 8:23 AM CDT) [facility] Method Time Signature Source Urine, Urine, [...] Performing Organization Address [facility] Phon e Number [facility] - [address] [place] [address] Transplant ABO Confirmation (09/30/2021 7:43 AM CDT) P athologist Signature Transplant ABO B Pos 09/30/2021 ETRM Confirmation 11:13 AM CDT Specimen Anatomical Collection Method Collection Time Receive d Time (Source) Location / / Volume Laterality Blood (Blood, 09/30/2021 7:43 AM 10/01/19 22 Venous) CDT 10:06 AM CDT Warren Connor M.D., M.P.H. LAB BLOOD BANK TEST OR DERABLES Performing Organization Address City/[facility] Phon e Number [facility] - 200 [place], [place] [address] [facility] ETRM [place] [address] [address] (ABNORMAL) Hemoglobin A1c (09/30/2021 7:39 AM [...] City/State/ZIP Code Phon e Number [facility] - [address] [place] [address] [facility] [address] [facility] [address] (ABNORMAL) CBC no call back, reflex T/S HGB <8 (09/30/2021 7:39 AM CDT) [facility] gist Method Time Signature Hemoglobin 8.9 (L) [...] LAB BLOOD NON ADD-ON Performing Organization Address City/[facility] Code Phon e Number [facility] - [address] [place] [address] [facility] [address] [facility] 200 [facility] (ABNORMAL) Kjtjz-1-Xozeuyoqhis Proteotype S/Z by LC-MS/MS (09/30/2021 7:38 AM CDT) athologist Signature Ihzhu-6-Xftbji 211 (H) 100 - 190 10/01/2021 [facility] ypsin, S mg/dL 9:47 AM CDT Comment: ----ADDITIONAL INFORMATION---- Method: Nephelometry Interpretation S Mutation: Negative 10/02/2021 3:3 2 PM CDT SDS Z Mutation: Negative Results most consistent with MM phenotype. Comment: ----ADDITIONAL INFORMATION---- This test was developed and its performa nce characteristics determined by [facility] in a manner consistent with [...] City/State/ZIP Code Phon e Number [facility] [address] [place], [place] [address] [facility] [place] [address] Laboratory Medicine and Pathology [address] [place] Phosphatidylethanol (Peth), whole blood- Sent Out Lab (09/30/2021 7:38 AM CDT) Component Value Ref Range Test Analysis Performed Pathologis t Method Time At Signature Phosphatidylethanol NEGATIVE NEGATIVE 10/03/2021 MTI (PEth) ng/mL 10:27 PM CDT Comment: Analyzed compound: PEth 16:0/18:1. ? 3-owkhusmmp-3-cghazr-jt-whdxrcz-3 -phosphoethanol. ? Analysis performed by Liquid Chromatogra [...] and its performa nce characteristics determined by [facility]. It has not been c leared or approved by the Food and Drug Administration. Specimen Anatomical Collection Method Collection Time Receive d Time (Source) Location / / Volume Laterality Blood (Blood, 09/30/2021 7:38 AM 10/01/19 22 1:51 Venous) CDT PM CDT Warren Connor M.D., M.P.H. LAB BLOOD NON ADD-ON Performing Organization Address City/State/ZIP Code Phon e Number [employer]. [address] [facility] [address] [place], [place] [address] [employer], [employer] [place], [place] [address] [place] [address] D hCG (Human Chorionic Gonadotropin), Quantitative, (09/30/2021 [...] City/State/ZIP Code Phon e Number [facility] - [address] [place], [place] [address] [place] [address] [facility] [address] (ABNORMAL) AFP (Alpha-Fetoprotein), Tumor Marker (09/30/2021 7:38 AM CDT) athologist Signature Alpha-Fetoprote 14 (H) ng/mL 09/30/2021 [facility] in, Tumor 4:01 PM CDT Marker, S [...] method is an immunoenzymatic assay manufactured by [employer]. and is tested on the [email or web address] DxI 800. Values obtained with different [...] M.P.H. LAB BLOOD ADD-ON Performing Organization Address [facility] Phon e Number [facility] [address] [place] [address] [address] [facility] [place] [address] Laboratory Medicine and Pathology [address] [place] [address] Dr. CHAPPELL Vitamin E Level (09/30/2021 7:38 AM CDT) athologist Signature A-Tocopherol, 6.3 5.5 - 17.0 10/01/2021 [facility] Vitamin E mg/L 1:44 PM CDT Comment: ----ADDITIONAL INFORMATION---- This test was developed and its performa nce characteristics determined by [facility] in a manner consistent with [...] NON ADD-ON Performing Organization Address [facility] Phon e Number [address] [place] [address] 05 SUPPORT [facility] [place] [address] Laboratory Medicine and Pathology [address] [place] [address] Dr. CHAPPELL 25-Hydroxyvitamin D2 and D3 (09/30/2021 [...] and its performa nce characteristics determined by [facility] in a manner consistent with [...] City/State/ZIP Code Phon e Number [facility] [address] [place], [place] [address] [facility] [place] [address] Laboratory Medicine and Pathology [address] CHAPPELL (ABNORMAL) Vitamin A Level (09/30/2021 7:38 AM CDT) athologist Signature Vitamin A 9.5 (L) 32.5 - 78.0 10/01/2021 SDS mcg/dL 11:30 AM CDT Comment: In this sample, the retinol (vitamin A) level indicates a severe deficiency. ----ADDITIONAL INFORMATION---- This test was developed and its performa nce characteristics determined by [facility] in a manner consistent with [...] City/State/ZIP Code Phon e Number [facility] [address] [place], [place] 139 [facility] [place] [address] Laboratory Medicine and Pathology [address] CHAPPELL HLA Class II Typing by Low Resolution, Recipient (09/30/2021 7:38 AM CDT) [facility] Method Time Signature DRB1 - 1 DR4 Not 10/10/2021 DBB8 Equivalent Applicable 10:12 AM CDT DRB1 - 2 DR16 Not 10/10/2021 DBB8 Equivalent Applicable 10:12 AM CDT DRB1 - 1 DRB1*04:01 Not 10/10/2021 DBB8 Molecular Applicable 10:12 AM CDT DRB1 - 2 DRB1*16:02 Not 10/10/2021 DBB8 Molecular Applicable 10:12 AM CDT EMT386 - 1 DR53 Not 10/10/2021 DBB8 Equivalent Applicable 10:12 AM CDT RWQ482 - 2 DR51 Not 10/10/2021 DBB8 Equivalent Applicable 10:12 AM CDT HMO647 - 1 DRB4*01:03 Not 10/10/2021 DBB8 Molecular Applicable 10:12 AM CDT VJK855 - 2 DRB5*02:02 Not 10/10/2021 DBB8 Molecular [...] and its performa nce characteristics determined by [facility] in a manner co nsistent with CLIA requirements. This test has not been norah ared or approved by the U.S. Food and Drug Administration. CLIA: [id number] ??CLIA Quilter Fixer: THAIS CAR MD,PhD Specimen Anatomical Collection Method Collection Time Receive d Time (Source) Location / / Volume Laterality Blood (Blood, 09/30/2021 7:38 AM 10/01/19 22 8:12 Venous) CDT AM CDT Warren Connor M.D., M.P.H. LAB HLA ORDERABLES Performing Organization Address City/State/ZIP Code Phon e Number [facility] - [address] [place] [address] [facility] [place]BB[address] [place] [address] Laboratories-[facility] [address] HLA Class I Typing by Low Resolution, Recipient (09/30/2021 7:38 AM CDT) [facility] gist Method Time Signature A - 1 [...] and its performa nce characteristics determined by [facility] in a manner co nsistent with CLIA requirements. This test has not been norah ared or approved by the U.S. Food and Drug Administration. CLIA: [id number] ??CLIA Quilter Fixer: THAIS CAR MD,PhD Specimen Anatomical Collection Method Collection Time Receive d Time (Source) Location / / Volume Laterality Blood (Blood, 09/30/2021 7:38 AM 10/01/19 8:12 Venous) CDT AM CDT Warren Connor M.D., M.P.H. LAB HLA ORDERABLES Performing Organization Address City/State/ZIP Code Phon e Number [facility] - [address] [place], [place] [address] [facility] DBB[address] [place] [address] [facility] [address] Folate (09/30/2021 7:38 AM CDT) P athologist Signature Folate, S >20.0 >=4.0 mcg/L 09/30/2021 9:31 DTL AM CDT Specimen Anatomical Collection Method Collection Time Receive d Time (Source) Location / / Volume Laterality Blood (Blood, 09/30/2021 7:38 AM 10/01/19 22 8:07 Venous) CDT AM CDT Warren Connor M.D., M.P.H. LAB BLOOD ADD-ON Performing Organization Address City/[facility] Phon e Number [facility] - [address] [place], [place] [address] [facility] [place] [address] Laboratories-[address] (ABNORMAL) Parathyroid Hormone (PTH) (09/30/2021 7:38 [...] M.P.H. LAB BLOOD ADD-ON Performing Organization Address City/[facility] Phon e Number [facility] - [address] [place], [place] [address] 05 [place] [address] T4 (Thyroxine), Free (09/30/2021 7:38 AM CDT) P athologist Signature T4 (Thyroxine), 1.3 0.9 - 1.7 09/30/2021 DTL Free, S ng/dL 10:47 AM CDT Specimen Anatomical Collection Method Collection Time Receive d Time (Source) Location / / Volume Laterality Blood (Blood, 09/30/2021 7:38 AM 10/01/19 22 8:07 Venous) CDT AM CDT Warren Connor M.D., M.P.H. LAB BLOOD ADD-ON Performing Organization Address City/[facility] Phon e Number [facility] [address] (ABNORMAL) S-TSH (Thyroid-Stimulating Hormone - Sensitive) [...] M.P.H. LAB BLOOD ADD-ON Performing Organization Address [facility] Phon e Number [facility] - [address] [place] [address] Type and Screen (with reflex Antibody ID) (09/30/2021 7:38 AM CDT) Patholo gist Method Time Signature ABORh B Pos Not 09/30/2021 ETRM applicable 11:13 AM CDT Antibody Negative Negative 09/30/2021 ETR[facility] Screen 11:21 AM CDT Type & Screen 10/03/2021 09/30/2021 ETRM Expiration 23:59 11:13 AM CDT Testing Bent DEFAULT 09/30/2021 ETRM Location 10:17 AM CDT Specimen Anatomical Collection Method Collection Time Receive d Time (Source) Location / / Volume Laterality Blood (Blood, 09/30/2021 7:38 AM 10/01/19 22 Venous) CDT 10:17 AM CDT Warren Connor M.D., M.P.H. LAB BLOOD BANK TEST OR DERABLES Performing Organization Address [facility] Phon e Number [place] [phone] [facility] [address] QuantiFERON-Tb Gold Plus, Blood (09/30/2021 7:38 [...] cordance with the 2017 ATS/IDSA/CDC Clinical Prac amry Guidelines for Diagnosis of Tuberculosis in Adults and Children [Lewinsohn DM et. al. Clin. Infect. Dis. 2017;64(2):111-115]. [...] Result 0.00 IU/mL 10/01/2021 10:03 AM CDT [facility] Specimen Anatomical Collection Method Collection Time Receive d Time (Source) Location / / Volume Laterality Blood (Blood, 09/30/2021 7:38 AM 10/01/19 9:36 Venous) CDT AM CDT Narrative [facility] JARED R - 10/01/2021 10:03 AM CDT Specimen Information: Specimen ID: [id number] Specimen Type: Blood Specimen Collection Start Date: 10/01/19 ??7:38 AM Specimen Received Date: 09/30/2021 ??9:3 6 AM Specimen ID: [id number] Specimen Type: Blood Specimen Collection Start Date: 10/01/19 ??7:38 AM Specimen Received Date: 09/30/2021 ??9:3 6 AM Specimen ID: [id number] Specimen Type: Blood Specimen Collection Start Date: 10/01/19 ??7:38 AM Specimen Received Date: 09/30/2021 ??9:3 6 AM Specimen ID: [id number] Specimen Type: Blood Specimen Collection Start Date: 10/01/19 ??7:38 AM Specimen Received Date: 09/30/2021 ??9:3 6 AM Warren Connor M.D., M.P.H. LAB MICROBIOLOGY - BLO OD ORDERABLES Performing Organization Address City/[facility] Phon e Number [facility] [address] [place] [address] 05 [facility] [place] [address] Laboratory Medicine and Pathology [address] [place] [address] Dr. CHAPPELL HCV RNA Detect / Quant, Serum (09/30/2021 7:38 AM CDT) [facility] gist Method Time Signature HCV RNA Undetected Undetected 10/01/2021 [facility] Detect/Quant, IU/mL 12:31 PM S CDT Comment: Result in log IU/mL is Undetected. ----ADDITIONAL INFORMATION---- The quantification range of this assay i s 15 to 100,000,000 IU/mL (1.18 log to 8.00 log IU/mL). Testing was performe d using the john HCV test ([employer] with the john 6800 System. Specimen Anatomical Collection Method Collection Time Receive d Time (Source) Location / / Volume Laterality Blood (Blood, 09/30/2021 7:38 AM 10/01/19 Venous) CDT 10:15 AM CDT Warren Connor M.D., M.P.H. LAB MICROBIOLOGY - BLO OD ORDERABLES Performing Organization Address City/[facility] Phon e Number [facility] [address] TA Garber, [place] [address] SUPPORT [facility] [address] Laboratory Medicine and Pathology [address] [place] [address] Dr. CHAPPELL HCV Ab Scrn w/Reflex to HCV PCR, Serum (09/30/2021 7:38 AM CDT) athologist Signature HCV Ab Screen, Negative Negative 09/30/2021 [facility] S 2:11 PM CDT Comment: Jyodzl-bf-bnssii ratio is <1.00 . Specimen Anatomical Collection Method Collection Time Receive d Time (Source) Location / / Volume Laterality Blood (Blood, 09/30/2021 7:38 AM 10/01/19 Venous) CDT 10:15 AM CDT Warren Connor M.D., M.P.H. LAB MICROBIOLOGY - BLO OD ORDERABLES Performing Organization Address [facility] Phon e Number [address] [place] [address] Laboratory Medicine and Pathology [address] [place] [address] Dr. CHAPPELL HBc Total Ab Scrn, S (09/30/2021 7:38 AM CDT) athologist Signature HBc Total Ab Negative Negative 09/30/2021 [facility] Scrn, S 2:11 PM CDT Specimen Anatomical Collection Method Collection Time Receive d Time (Source) Location / / Volume Laterality Blood (Blood, 09/30/2021 7:38 AM 10/01/19 Venous) CDT 10:15 AM CDT Warren Connor M.D., M.P.H. LAB MICROBIOLOGY - BLO OD ORDERABLES Performing Organization Address [facility] Phon e Number [address] [place] [address] Laboratory Medicine and Pathology [address] [place] [address] Dr. CHAPPELL HBs Antibody Scrn, S (09/30/2021 7:38 AM CDT) athologist Signature HBs Antibody Positive 09/30/2021 [facility] Scrn, S 2:20 PM CDT Comment: Patient is considered to be immune to in fection with HBV. ----REFERENCE VALUE---- Unvaccinated: Negative Vaccinated: Positive HBs Antibody, Quantitative, S 15.2 mIU/mL 09/30/2021 2:20 PM CDT [facility] Comment: ----REFERENCE VALUE---- Unvaccinated: <5.0 Vaccinated: >=12.0 Specimen Anatomical Collection Method Collection Time Receive d Time (Source) Location / / Volume Laterality Blood (Blood, 09/30/2021 7:38 AM 10/01/19 Venous) CDT 10:15 AM CDT Warren Connor M.D., M.P.H. LAB MICROBIOLOGY - BLO OD ORDERABLES Performing Organization Address [facility] Phon e Number [facility] [address] TA Garber, [place] [address] 05 [facility] [place] [address] Laboratory Medicine and Pathology [address] [place] [address] Dr. CHAPPELL Hepatitis A IgM Ab, Serum (09/30/2021 7:38 AM CDT) athologist Signature Hepatitis A Negative Negative 09/30/2021 [facility] IgM Ab, S 1:17 PM [...] - BLO OD ORDERABLES Performing Organization Address [facility] Phon e Number [address] [place] [address] 05 [facility] [place] [address] Laboratory Medicine and Pathology [address] [place] [address] Dr. CHAPPELL Hepatitis A IgG Ab, Serum (09/30/2021 7:38 AM CDT) athologist Signature Hepatitis A Negative 09/30/2021 [facility] IgG Ab, S 1:17 PM CDT Comment: [...] - BLO OD ORDERABLES Performing Organization Address [facility]/ZIP [facility] Phon e Number [facility] [address] [place], [place] [address] [facility] [place] [address] Laboratory Medicine and Pathology [address] [place] [address] Dr. CHAPPELL HIV-1/-2 Ag and Ab Screen, Plasma (09/30/2021 7:38 AM CDT) athologist Signature HIV-1/-2 Ag Negative Negative 09/30/2021 [facility] and Ab Screen, 1:16 PM CDT P [...] - BLO OD ORDERABLES Performing Organization Address [facility] Phon e Number [facility] [address] [place] [address] [facility] [place] [address] Laboratory Medicine and Pathology [address] [place] [address] Dr. CHAPPELL Phosphorus Inorganic (09/30/2021 7:38 AM CDT) athologist Signature Phosphorus 3.4 2.5 - 4.5 09/30/2021 DTL (Inorganic), S mg/dL 10:47 AM CDT Specimen Anatomical Collection Method Collection Time Receive d Time (Source) Location / / Volume Laterality Blood (Blood, 09/30/2021 7:38 AM 10/01/19 22 8:07 Venous) CDT AM CDT Warren Connor M.D., M.P.H. LAB BLOOD ADD-ON Performing Organization Address City/[facility]/ZIP Code Phon e Number [facility] - [address] [place], [place] [address] 05 [facility] [address] [facility] [address] Lipid Panel (09/30/2021 7:38 AM CDT) P athologist Signature Cholesterol, 171 mg/dL 09/30/2021 DTL [...] City/State/ZIP Code Phon e Number [facility] - [address] [place] [address] 05 [facility] [address] [facility] [address] (ABNORMAL) GGT (Gamma-Glutamyltransferase) (09/30/2021 7:38 AM CDT) [...] City/State/ZIP Code Phon e Number [facility] - [address] [place], [place] [address] [facility] [place] [address] [facility] [address] [facility] (ABNORMAL) Hepatic Function Panel (09/30/2021 7:38 AM CDT) [facility] gist Method Time Signature Bilirubin, Total, [...] M.P.H. LAB BLOOD ADD-ON Performing Organization Address City/State/[facility] Code Phon e Number [facility] - 200 [place], [place] [address] 05 [facility] [place] [address] [facility] [address] [facility] (ABNORMAL) Basic Metabolic Panel (09/30/2021 7:38 AM [...] 09/30/2021 DTL Black/ mL/min/BSA 10:29 AM CDT Bahraini Comment: ----ADDITIONAL INFORMATION---- Estimated GFR calculated using [...] City/State/ZIP Code Phon e Number [facility] - [address] [place] [address] 05 [facility] [address] [facility] [address] Rubella Antibodies, IgG (09/30/2021 7:37 AM CDT) athologist Signature Rubella Ab, Positive 09/30/2021 [facility] IgG, S 11:25 AM CDT Comment: Results suggest response to immunization or prior exposure to the virus. ----REFERENCE VALUE---- Vaccinated: Positive (>=1.0 AI) Unvaccinated: Negative (<=0.7 AI) Rubella IgG Antibody Index 5.9 09/30/2021 11 :25 AM CDT [facility] Specimen Anatomical Collection Method Collection Time Receive d Time (Source) Location / / Volume Laterality Blood (Blood, 09/30/2021 7:37 AM 10/01/19 22 Venous) CDT 10:37 AM CDT Warren Connor M.D., M.P.H. LAB MICROBIOLOGY - BLO OD ORDERABLES Performing Organization Address [facility] Phon e Number [facility] [address] [place] [address] 05 [facility] [place] [address] Laboratory Medicine and Pathology [address] [place] [address] Dr. CHAPPELL Measles (Rubeola) Ab, IgG (09/30/2021 7:37 AM CDT) athologist Signature Measles Positive 09/30/2021 [facility] (Rubeola) Ab, 11:25 AM CDT IgG, S Comment: Results suggest response to immunization or prior exposure to the virus. ----REFERENCE VALUE---- Vaccinated: Positive (>=1.1 AI) Unvaccinated: Negative (<=0.8 AI) Measles IgG Antibody Index >8.0 09/30/2021 11 :25 AM CDT [facility] Specimen Anatomical Collection Method Collection Time Receive d Time (Source) Location / / Volume Laterality Blood (Blood, 09/30/2021 7:37 AM 10/01/19 22 Venous) CDT 10:37 AM CDT Warren Connor M.D., M.P.H. LAB MICROBIOLOGY - BLO OD ORDERABLES Performing Organization Address [facility] Phon e Number [facility] [address] [place], [place] [address] 05 [facility] [place] [address] Laboratory Medicine and Pathology [address] [place] [address] Dr. CHAPPELL (ABNORMAL) Zinc (09/30/2021 7:37 AM CDT) P athologist Signature Zinc, S 0.39 (L) 0.66 - 1.10 09/30/2021 [facility] mcg/mL 12:56 PM CDT Comment: ----ADDITIONAL INFORMATION---- This test was developed and its performa nce characteristics determined by [facility] in a manner consistent with [...] NON ADD-ON Performing Organization Address [facility] Phon e Number [address] [place] [address] 05 SUPPORT [facility] [place] [address] Laboratory Medicine and Pathology [address] [place] [address] Dr. CHAPPELL Toxoplasma gondii Antibody, IgG (09/30/2021 7:37 AM CDT) Analysis Performed At Patho logist Time Signature Toxoplasma Ab, Negative Negative 09/30/2021 [facility] IgG, S 11:25 AM CDT Toxoplasma IgG <3 IU/mL 09/30/2021 [facility] Value 11:25 AM CDT Comment: ----REFERENCE VALUE---- <=9 IU/mL (Negative) 10-11 IU/mL (Equivocal) >=12 IU/mL (Positive) Specimen Anatomical Collection Method Collection Time Receive d Time (Source) Location / / Volume Laterality Blood (Blood, 09/30/2021 7:37 AM 10/01/19 22 Venous) CDT 10:37 AM CDT Warren Connor M.D., M.P.H. LAB MICROBIOLOGY - BLO OD ORDERABLES Performing Organization Address City/[facility] Phon e Number [address] [place] [address] 05 [facility] [place] [address] Laboratory Medicine and Pathology [address] [place] [address] Dr. CHAPPELL Mumps Ab, IgG (09/30/2021 7:37 AM CDT) P athologist Signature Mumps Ab, IgG, Positive 09/30/2021 [facility] S 11:25 AM CDT Comment: Results suggest response to immunization or prior exposure to the virus. ----REFERENCE VALUE---- Vaccinated: Positive (>=1.1 AI) Unvaccinated: Negative (<=0.8 AI) Mumps IgG Antibody Index 6.1 09/30/2021 11:2 5 AM CDT [facility] Specimen Anatomical Collection Method Collection Time Receive d Time (Source) Location / / Volume Laterality Blood (Blood, 09/30/2021 7:37 AM 10/01/19 Venous) CDT 10:37 AM CDT Warren Connor M.D., M.P.H. LAB MICROBIOLOGY - BLO OD ORDERABLES Performing Organization Address [facility] Phon e Number [facility] [address] TA [place], [place] [address] [place] [address] [place] [address] Laboratory Medicine and Pathology [address] [place] [address] Dr. CHAPPELL Syphilis IgG w/ Reflex, EIA, S (09/30/2021 7:37 AM CDT) Patholo gist Method Time Signature Syphilis IgG Nonreactive Nonreactive 10/01/2021 [facility] w/ Reflex, 3:00 PM CDT EIA, S Comment: No serologic evidence of infection with T. pallidum (syphilis). ??Repeat testing may be cons idered in patients with suspected acute or primary syphilis in 2-4 weeks. For additional information on interpreta tion of the syphilis reverse algorithm and resul ts, see: [email or web address] Specimen Anatomical Collection Method Collection Time Receive d Time (Source) Location / / Volume Laterality Blood (Blood, 09/30/2021 7:37 AM 10/01/19 22 Venous) CDT 10:12 AM CDT Warren Connor M.D., M.P.H. LAB MICROBIOLOGY - BLO OD ORDERABLES Performing Organization Address [facility] Phon e Number [facility] [address] [place] [address] Dr TA Garber, [address] [place] [address] Laboratory Medicine and Pathology [address] CHAPPELL EBV Ab Profile (09/30/2021 7:37 AM CDT) [facility] Time Signature EBV VCA IgM Ab, S Negative Negative 09/30/2021 [facility] 11:25 AM CDT EBV VCA IgG Ab, S Positive Negative 09/30/2021 [facility] 11:25 AM CDT EBNA Ab, S Positive Negative 09/30/2021 [facility] 11:25 AM CDT Interpretation SEE COMMENT 09/30/2021 [facility] 11:25 AM CDT Comment: Results suggest past [...] Number [facility] [address] [place] [address] [place] [address] Laboratory Medicine and Pathology [address] [place] [address] Dr. CHAPPELL Varicella-Zoster Ab, IgM and IgG (09/30/2021 7:37 AM CDT) P athologist Signature Varicella-Zost Positive 09/30/2021 [facility] er Ab, IgG, S 11:25 AM CDT Comment: Results suggest response to immunization or prior exposure to the virus. ----REFERENCE VALUE---- Vaccinated: Positive (>=1.1 AI) Unvaccinated: Negative (<=0.8 AI) Varicella IgG Antibody Index 3.9 09/30/2021 11:25 AM CDT [facility] Varicella-Zoster Ab, IgM, S Negative Negative 10/01/2021 2 :23 PM CDT [facility] Specimen Anatomical Collection Method Collection Time Receive d Time (Source) Location / / Volume Laterality Blood (Blood, 09/30/2021 7:37 AM 10/01/19 22 Venous) CDT 10:37 AM CDT Warren Connor M.D., M.P.H. LAB MICROBIOLOGY - BLO OD ORDERABLES Performing Organization Address [facility] Phon e Number [facility] [address] [place] [address] [place] [address] Laboratory Medicine and Pathology [address] [place] [address] Dr. CHAPPELL HSV Types 1 and 2 [...] - BLO OD ORDERABLES Performing Organization Address City/[facility] Phon e Number [facility] [address]ber[address] [place] [address] Laboratory Medicine and Pathology [address] [place] [address] Dr. CHAPPELL Cytomegalovirus Ab, IgM and IgG [...] - BLO OD ORDERABLES Performing Organization Address City/[facility]/ZIP Code Phon e Number [facility] [address] [place], [place] [address] [facility] [place] [address] Laboratory Medicine and Pathology [address] CHAPPELL (ABNORMAL) Prothrombin Time (PT) (09/30/2021 7:37 AM CDT) [facility] gist Method Time Signature Prothrombin 28.8 (H) [...] M.P.H. LAB BLOOD ADD-ON Performing Organization Address City/[facility] Code Phon e Number [facility] - [address] [place], [place] [address] [place] [address] Laboratories-[facility] [address] [facility] documented in this encounter Visit [...] (HCC) documented in this encounter Care Teams Industrial Therapist Relationship Specialty Start Date End Date Elsewhere, Pcp PCP - General Family Medicine 03/10/20 11/30/21 [facility] [place] [facility] 08/25/21 Ervin Schroeder MD Referring Provider Family Medicine 03/24/[address] [place], [place] [phone] documented as of this encounter
--- OUTSIDE RECORDS SUMMARY | 2022-02-12 20:31 | XMS_ITS | Encounter Summary ---
:1990 Author Organization [facility] Address [address] [place] [address] Care Team Providers Name Role Phone Elsewhere, Pcp Primary Care Provider Unavailable Encounter Details Date Type Department Care Team Description 08/01/2021 Clinical Communication [facility] Lester Garber La [place] M, [place] M.D. [address] [place] [address] [address] [place] [phone] Social History Tobacco Use Types Packs/Day Years [...] you attend rastafari or Patient refused 2021 sikh services? 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 She has been wrapping [...] Matthew Jerome 2 Tyrell Rodriguez M.D. [address] [place] [address] [phone] Appointment Gastroenterology and Adrianne, 2 Hepatology Yue Burciaga M.D. [address] [place] [phone] Virtual Visit Transplant Matthew Jerome 2 Tyrell Rodriguez M.D. [address] [place] [address] [phone] Office Visit Gastroenterology and Matthew Jerome 2 Hepatology Tyrell Rodriguez M.D. [address] [place] [address] [phone] Appointment Radiology Matthew Jerome 2 Tyrell Rodriguez M.D. [address] [place] [address] [phone] Hospital Gastroenterology and Matthew Jerome Cirrhos is Alcoholic (HCC) 2 Encounter Hepatology Tyrell Rodriguez M.D. [address] [place] [address] [phone] Anesthesia Event Gastroenterology and Rl, 2 Hepatology Ervin Burgos M.D. [address] [place] [address] [phone] Surgery Gastroenterology and Mousa, Matthew ESOPHAG OGASTRODUODENOSCOPY 2 Hepatology Tyrell Rodriguez M.D. [address] [place] [phone] Scheduled Procedures Name Priority Associated Diagnoses Date/Time ESOPHAGOGASTRODUODENOSCOPY Cirrhosis Alc oholic (HCC) 03/20/2022 8:45 AM LATHE SET UP PERSON Hypertension Portal (HCC) documented as of this encounter Visit Diagnoses Not on filedocumented in this encounter Care Teams Cloth Mercerizer Operator Relationship Specialty Start Date End Date Elsewhere, Pcp PCP - General Family Medicine 03/10/20 11/30/21 Ervin Schroeder MD Referring Provider Family Medicine 03/24/[address] [place] [phone] documented as of this encounter
--- OUTSIDE RECORDS SUMMARY | 2022-02-12 20:31 | XMS_ITS | Encounter Summary ---
:1990 Author Organization [facility] Address [address] [place] [address] Care Team Providers Name Role Phone Elsewhere, Pcp Primary Care Provider Unavailable Reason for Referral Outpatient (Routine) - Closed Specialty Diagnoses / Referred By Contact Referred To Procedures Contact Gastroenterology and Matthew Jerome, [facility] Hepatology Lilian Santillan [address] [place] [phone] Referral ID Status Reason Start Date Expiration Date Visits Requ ested Visits Authorized [id number] Closed 08/05/2021 08/05/2022 1 1 Occupational Therapy (Routine) - Closed Specialty Diagnoses / Procedures Referred By Contact Refer red To Contact Diagnoses Edema Leg Matthew Jerome M.B.B.S., [facility] Procedures OT Evaluate and treat M.Jeri [address] [place] [phone] Referral ID Status Reason Start Date Expiration Date Visits Requ ested Visits Authorized [id number] Closed 08/05/2021 08/05/2022 1 1 Reason for Visit Outpatient (Routine) - Closed Specialty Diagnoses / Referred By Contact Referred To Procedures Contact Gastroenterology and Kerry Naranjo, [facility] Hepatology CAPTAIN/CHECK AIRMAN, LowellNDayne, M.S.N. [facility] [place] [address] Referral ID Status Reason Start Date Expiration Date Visits Requ ested Visits Authorized [id number] Closed 07/21/2021 07/21/2022 1 1 Encounter Details Date Type Department Care Team Description 08/05/2021 Office Visit Department of Matthew Jerome Edema Leg (P rimary Dx); Gastroenterology in Joshua Santillan Cirrhosis Alcoholic (HCC) [place], [place] [address] [place] [phone] Social History Tobacco Use Types [...] you attend pentecostal or Patient refused 2021 faith services? Do [...] or the highest technical, or vocational p [employer] degree you have received? 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 Worked at [employer]. For 13 years she was a vegetarian, [...] on her own after a trip to [place] last July 2020, but could not remember why she decided to. Prior to that she had 4 episodes of recurrent pancreatitis. She states that the 1st illness she had was after a trip to [place] when she had abdominal pain and she [...] the liver Transplant selection committee meeting in [facility]. She agreed to proceed. I explained that [...] contact the liver transplant coordinators to submit [id number], pending approval. Once approved, the transplant coordinators [...] her PCP #[id number] Newly diagnosed PFO with [id number] atrial shunt: Echo done March 2020 # [...] OLAYINKA Trotter Gastroenterology, Hepatology and Transplant hepatology [facility] documented in this encounter Plan of Treatment Upcoming Encounters Date Type Specialty Care Team Description Telemedicine Transplant 2 Appointment Radiology Matthew Jerome 2, M.B.B.S., M.D. [address] [place] [phone] Appointment Gastroenterology and Adrianne, 2 Hepatology Yue Burciaga M.D. [address] [place] [phone] Virtual Visit Transplant Matthew Jerome 2, M.B.B.S., M.D. [address] [place] [address] [phone] Office Visit Gastroenterology and Matthew Jerome 2 Hepatology Tyrell Rodriguez M.D. [address] [place] [phone] Appointment Radiology Queenie Matthew 2 YTyrell M.D. [address] [place] [phone] Hospital Gastroenterology and [facility] Cirrhos is Alcoholic (HCC) 2 Encounter Hepatology Tyrell Rodriguez M.D. [address] [place] [phone] Anesthesia Event Gastroenterology and Rl, 2 Hepatology Ervin Burgos M.D. [address] [place] [phone] Surgery Gastroenterology and [facility] ESOPHAG OGASTRODUODENOSCOPY 2 Hepatology Tyrell Rodriguez M.D. [address] [place] [phone] Scheduled Procedures Name Priority Associated Diagnoses Date/Time ESOPHAGOGASTRODUODENOSCOPY Cirrhosis Alc oholic (HCC) 03/20/2022 8:45 AM ORACLE SECURITY CONSULTANT Hypertension Portal (HCC) Scheduled Referrals Name [...] CDT eGFR-Black/Afri >90 >=60 08/11/2021 [place] can Spanish mL/min/BSA 1:53 PM CDT Comment: ----ADDITIONAL INFORMATION---- [...] Code Phon e Number [facility]- [address] [place] [address] [facility] [address] System in [place] [address] documented in this encounter Visit Diagnoses Diagnosis Edema Leg - Primary Cirrhosis Alcoholic (HCC) Cirrhosis Alcoholic (HCC) Cirrhosis Alcoholic (HCC) Hypertension Portal (HCC) documented in this encounter Care Teams Pathology Manager Relationship Specialty Start Date End Date Elsewhere, Pcp PCP - General Family Medicine 03/10/20 11/30/21 Ervin Schroeder MD Referring Provider Family Medicine 03/24/211979 [address] [place] [phone] documented as of this encounter
--- OUTSIDE RECORDS SUMMARY | 2022-02-12 20:31 | XMS_ITS | Encounter Summary ---
:1990 Author Organization [facility] Address [address] [place] [address] Care Team Providers Name Role Phone Elsewhere, Pcp Primary Care Provider Unavailable Reason for Visit Reason Comments Referral - Liver Txp Encounter Details Date Type Department Care Team Description 08/14/2021 Clinical Department of Matthew Jerome Referral - Angelica er Communication Gastroenterology in , M.B.B.S., [place], [place] M.D [address] [facility] [address] [place] [phone] [facility] [phone] [place] [phone] Social History Tobacco Use Types Packs/Day Years [...] you attend restoration or Patient refused 2021 confucianism services? 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 Jerome wrapping 09/17. After speaking with patient, our hopes are that the remaining testing can be done in [place] the week prior (09/08). Mihaela, I have left the orders in our WQ and they say LTE [place] on them. Feel free to reroute the orders as neccessary! Let [place] [facility] know if you are unable to schedule testing 09/08 week and we can try scheduling the test in [place] instead. Our TTE echoes are going out [...] 6:55 PM CDT ----- Regarding: Liver transplant [id number] Dear team Kindly please submit [id number] for this patient. I had an initial visit with her, and I hope we can complete a liver transplant evaluation on her behalf. I will see her back for a wrap-up visit here in [place]. She will need full workup and consultations, especially Cardiology (abnormal echo 2020) and transplant psychiatry given her psych history. Thanks OM documented in this encounter Plan of Treatment Upcoming Encounters Date Type Specialty Care Team Description Telemedicine Transplant 2 Appointment Radiology Matthew Jerome 2, M.B.B.S., M.D. [address] [place] [phone] Appointment Gastroenterology and Adrianen, 2 Hepatology Yue Burciaga M.D. [address] [place] [phone] Virtual Visit Transplant LuisMatthew abdul 2 Tyrell Rodriguez M.D. [address] [place] [phone] Office Visit Gastroenterology and Matthew Jerome 2 Hepatology Tyrell Rodriguez M.D. [address] [place] [phone] Appointment Radiology LuisMatthew abdul 2 Tyrell Rodriguez M.D. [address] [place] [phone] Hospital Gastroenterology and Queenie Matthew Cirrhos is Alcoholic (HCC) 2 Encounter Hepatology Tyrell Rodriguez M.D. [address] [place] [phone] Anesthesia Event Gastroenterology and Rl, 2 Hepatology Ervin Burgos M.D. [address] [place] [phone] Surgery Gastroenterology and Queenie Matthew ESOPHAG OGASTRODUODENOSCOPY 2 Hepatology Tyrell Rodriguez M.D. 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 Hypertension Portal (HCC) documented as of this encounter Visit Diagnoses Not on filedocumented in this encounter Additional Health Concerns Infection Onset Date Last Indicated Resolved Time COVID19 Pending 08/29/2021 08/29/2021 08/29/2021 11:29 PM CDT COVID19 08/29/2021 08/29/2021 09/18/2021 8:31 AM CDT documented as of this encounter Care Teams Heat Treat Inspector Relationship Specialty Start Date End Date Elsewhere, Pcp PCP - General Family Medicine 03/10/20 11/30/21 [facility] [place] [facility] 08/25/21 Ervin Schroeder MD Referring Provider Family Medicine 03/24/[address] [place] [phone] documented as of this encounter
--- OUTSIDE RECORDS SUMMARY | 2022-02-12 20:31 | XMS_ITS | Encounter Summary ---
:1990 Author Organization [facility] Address [address] [place] [address] Care Team Providers Name Role Phone Elsewhere, Pcp Primary Care Provider Unavailable Encounter Details Date Type Department Care Team Description 08/11/2021 Hospital Encounter Department of Mousa, Matthew Y, Edema Leg; Laboratory Medicine Joshua Santillan. Cirrhosis Alcoholic (HCC) in [address] [phone] [facility] [place] [phone] (Work) [phone] Social History Tobacco Use Types Packs/Day Years [...] you attend faith or Patient refused 2021 mandaen services? 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 - 08/13/2021 10:53 PM CDT [facility] Please can you notify the patient [...] Radiology Matthew Jerome 2, M.B.B.S., M.D. [address] [place] [phone] Appointment Gastroenterology and Adrianne, 2 Hepatology Yue Burciaga M.D. [address] [place] [phone] Virtual Visit Transplant Matthew Jerome 2, M.B.B.S., M.D. [address] [place] [phone] Office Visit Gastroenterology and [facility] 2 Hepatology Tyrell Rodriguez M.D. [address] [place] [phone] Appointment Radiology [facility] 2 Tyrell Rodriguez M.D. [address] [place] [phone] [facility] Gastroenterology and [facility] Cirrhos is Alcoholic (HCC) 2 Encounter Hepatology Tyrell Rodriguez M.D. [address] [place] [phone] Anesthesia Event Gastroenterology and Rl, 2 Hepatology Ervin Burgos M.D. [address] [place] [phone] Surgery Gastroenterology and [facility] ESOPHAG OGASTRODUODENOSCOPY 2 Hepatology Tyrell Rodriguez M.D. 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 Hypertension Portal (HCC) documented as of this [...] CDT eGFR-Black/Afri >90 >=60 08/11/2021 [place] can Ghanaian mL/min/BSA 1:53 PM CDT Comment: ----ADDITIONAL INFORMATION---- [...] City/State/ZIP Code Phon e Number [facility]- [address] [place] [address] [place] [address] System in [place] [address] [facility] documented in this encounter Visit Diagnoses Diagnosis Edema Leg Cirrhosis Alcoholic (HCC) Cirrhosis Alcoholic (HCC) Cirrhosis Alcoholic (HCC) Hypertension Portal (HCC) documented in this encounter Care Teams Booking Prizer Relationship Specialty Start Date End Date Elsewhere, Pcp PCP - General Family Medicine 03/10/20 11/30/21 Ervin Schroeder MD Referring Provider Family Medicine 03/24/211979 [address] [place] [address] documented as of this encounter
--- OUTSIDE RECORDS SUMMARY | 2022-02-12 20:31 | XMS_ITS | Encounter Summary ---
:1990 Author Organization [facility] Address [address] [place] [address] Care Team Providers Name Role Phone Elsewhere, Pcp Primary Care Provider Unavailable Reason for Referral Outpatient (Routine) - Authorized Specialty Diagnoses / Procedures Referred By Contact Refer red To Contact Emergency Medicine Diagnoses Edema Peripheral Elevated Bilirubin Margy Paul M.D. [address] [phone] Referral ID Status Reason Start Date Expiration Date Visits V isits Requested Authorized [id number] Authorized 08/03/2021 08/03/2022 1 1 Outpatient (Routine) - Authorized Specialty Diagnoses / Procedures Referred By Contact Refer red To Contact Emergency Medicine Diagnoses Edema Peripheral Margy Paul M.D. [address] [phone] Referral ID Status Reason Start Date Expiration Date Visits V isits Requested Authorized [id number] Authorized 08/03/2021 08/03/2022 1 1 Reason for Visit Reason Comments Leg Swelling Pt states she has had bilate ral lower leg swelling for the past week. Encounter Details Date Type Department Care Team Description 08/02/2021 - Emergency [facility] Juliana Stevens D.O. [address] [place] [phone] Edema Peripheral (Primary Dx); 08/03/2021 [facility] Margy Paul M.D. [address] [place] [phone] Hypokalemia; Emergency Department Elevated Bilirubin; [address] [place] [phone] Social History Tobacco Use Types Packs/Day Years [...] you attend sabianist or Patient refused 2021 sikhism services? Do [...] or the highest technical, or vocational [facility] degree you have received? 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 Pt stated to publications writer that her mother was on her way from [facility] pick her up at that time. Pt was still in lobby at 0900. Mother was not enroute-pt had never actually talked to her about a ride (had left a text message). Pt approached by publications writer and asked what her plan was as hospital rules prohibit her from sitting in lobby until 1pm as that is when pt wants to go visit her friend on the unit. Pt then stated she didn't think she should have been discharged. Pt then informed by publications writer that shehas the ability to check back in and be evaluated by another physician. Pt declined and stated she did not want more blood work or another IV. I just want to visit my friend. Pt again talked to someone on the phone and said Will you come and get me?. She then said her mother was on her way. [facility] Shyla Ojeda R.N. 08/03/21 [...] of her legs. No beds here in [place]. Have had a conversation regarding admission vs [...] and Family: Twice a week ??? Attends Sikhism Services: Never ??? Active Member of [employer] [...] this time. Unfortunately no beds here in [place] and patient prefers to wait until bed availability could potentially open up tomorrow rather than attempt transfer to [facility]. Transfer of patient's care pending admission to [facility] ED attending Dr. Paul. Final Diagnoses: as of 08/06/21 1123 Edema Peripheral Hypokalemia Elevated Bilirubin Anemia INTERVENTIONS: Medications fentaNYL injection 25 mcg (SUBLIMAZE) (25 mcg intravenous Given 08/02/21 7020) fentaNYL injection 50 mcg (SUBLIMAZE) (50 mcg [...] Ketone Negative Bilirubin Negative pH 7.0 Specific [place] 1.005 Urobilinogen 0.2 White Blood Cells None [...] Appointment Radiology Matthew Jerome 2 YVikBLilian Bedolla [address] [place] [phone] Appointment Gastroenterology and Adrianne, 2 Hepatology Yue Burciaga M.D. [address] [place] [phone] Virtual Visit Transplant Matthew Jerome 2 YTyrell, Lilian [address] [place] [phone] Office Visit Gastroenterology and [facility] 2 Hepatology Tyrell Rodriguez M.D. [address] [place] [phone] Appointment Radiology Queenie Matthew 2 Tyrell Rodriguez M.D. [address] [place] [phone] [facility] Gastroenterology and [facility] Cirrhos is Alcoholic (HCC) 2 Encounter Hepatology Tyrell Rodriguez M.D. [address] [place] [phone] Anesthesia Event Gastroenterology and Rl, 2 Hepatology Ervin Burgos M.D. [address] [place] [phone] Surgery Gastroenterology and [facility] ESOPHAG OGASTRODUODENOSCOPY 2 Hepatology Tyrell Rodriguez M.D. 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 INTERN Hypertension Portal (HCC) Scheduled Referrals Name Type [...] Hepatic Function Panel (08/03/2021 4:27 AM CDT) [facility] Method Time Signature Bilirubin, Total, P [...] City/State/ZIP Code Phon e Number [facility]- [address] [place] [address] [place] [address] [address] (ABNORMAL) CBC without Differential (08/03/2021 4:27 AM CDT) [facility] gist Method Time Signature Hemoglobin 7.5 [...] City/State/ZIP Code Phon e Number [facility]- [facility] [place] [address] [place] [address] System in [place] [address] [place] [address] Urinalysis with Microscopic: Urine, Midstream (08/03/2021 12:07 AM CDT) Analysis Performed At [facility] Time Signature Source Urine, Urine, 08/03/2021 MK[facility] [...] 8.0 08/03/2021 12:13 AM CDT [facility] Specific [place] 1.005 1.001 - 1.035 08/03/2021 12:13 AM [...] D.O. LAB URINE ORDERABLES Performing Organization Address [facility] Phon e Number [address] [address] [place] [address] System [address] (ABNORMAL) NT-Pro B-Type Natriuretic Peptide (BNP) [...] supplements. ??If the result does not [facility] clinical observations, repeat testing after patient refrains fr om the use of supplements for at least 12 hours. Specimen Anatomical Collection Method Collection Time Receive d Time (Source) Location / / Volume Laterality Blood (Blood, 08/02/2021 10:44 08/02/2021 Venous) PM CDT 10:50 PM CDT Juliana Stevens D.O. LAB BLOOD ADD-ON Performing Organization Address City/[facility]/ZIP [facility] Phon e Number [facility]- [address] [place] [address] [place] [address] System in [address] (ABNORMAL) Prothrombin Time (PT) (08/02/2021 10:44 PM CDT) [facility] Method Time Signature Prothrombin 29.9 (H) 9.4 [...] D.O. LAB BLOOD ADD-ON Performing Organization Address City/[facility]/ZIP Code Phon e Number [facility]- [address] [place] [address] [place] [address] System in [address] Lipase (08/02/2021 10:44 PM CDT) P athologist Signature Lipase, P 14 13 - 60 U/L 08/02/2021 MKTO 11:31 PM CDT Specimen Anatomical Collection Method Collection Time Receive d Time (Source) Location / / Volume Laterality Blood (Blood, 08/02/2021 10:44 08/02/2021 Venous) PM CDT 10:50 PM CDT Juliana Stevens D.O. LAB BLOOD ADD-ON Performing Organization Address City/State/ZIP [facility] Phon e Number [address] [address] [place] [address] (ABNORMAL) Hepatic Function Panel (08/02/2021 10:44 PM CDT) [facility] Method Time Signature Bilirubin, Total, P [...] D.O. LAB BLOOD ADD-ON Performing Organization Address City/[facility] Phon e Number [address] [address] [place] [address] System [address] (ABNORMAL) Ammonia (08/02/2021 10:44 PM CDT) P athologist Signature Ammonia, P 84 (H) <=51 08/02/2021 MKTO mcmol/L 11:18 PM CDT Specimen Anatomical Collection Method Collection Time Receive d Time (Source) Location / / Volume Laterality Blood (Blood, 08/02/2021 10:44 08/02/2021 Venous) PM CDT 10:50 PM CDT Juliana Stevens D.O. LAB BLOOD NON ADD-ON Performing Organization Address [facility]/ZIP [facility] Phon e Number [address] [address] [place] [address] System in [place] [id number] [facility] (ABNORMAL) Basic Metabolic Panel (08/02/2021 10:44 PM [...] CDT eGFR-Black/Afri >90 >=60 08/02/2021 [facility] can [place] mL/min/BSA 11:31 PM CDT Comment: ----ADDITIONAL INFORMATION---- [...] City/State/ZIP Code Phon e Number [facility]- [facility] [place] [address] [place] [address] [address] hCG (Human Chorionic Gonadotropin), Quantitative, (08/02/2021 10:44 PM CDT) P athologist Signature HCG, <0.5 <5 IU/L 08/02/2021 [facility] Quantitative, 11:58 PM CDT , P Comment: Biotin has been identified by the [facility]elle [facility]ett as a potential interfering substance. ??Higher concentr ations of biotin may be found in multivitamins, hair/nail supple ments, and workout supplements. ??If the result does not [facility] clinical observations, repeat testing after patient refrains fr om the use of supplements for at least 12 hours. Specimen Anatomical Collection Method Collection Time Receive d Time (Source) Location / / Volume Laterality Blood (Blood, 08/02/2021 10:44 08/02/2021 Venous) PM CDT 10:50 PM CDT Juliana Stevens D.O. LAB BLOOD ADD-ON Performing Organization Address City/State/ZIP Code Phon e Number [facility]- [address] [place] [address] [place] [address] [address] (ABNORMAL) CBC with Differential, Blood (08/02/2021 10:44 PM CDT) [facility] gist Method Time Signature Hemoglobin 7.8 [...] City/State/ZIP Code Phon e Number [facility]- [facility] [place] [address] [place] [address] System in [place] [address] [place] [address] ECG 12 Lead (08/02/2021 10:31 PM CDT) P athologist Signature Ventricular Rate 86 BPM MUSE ECG/Min [place] Interval 166 ms MUSE QRSD Interval 92 ms MUSE QT Interval 404 ms MUSE QTC Interval 484 ms MUSE P [place] 61 degrees MUSE R [place] 56 degrees MUSE T Wave [place] 32 degrees MUSE Specimen Anatomical Collection Method [...] 0545 (New Bag - Provider: Shyla Ojeda RGabby)0620 (Stopped - Provider: Shyla Ojeda R.N.) 12.5 [...] (COMPLETED) 0538 (Given - Provider: Shyla Ojeda RGabby) 600 mg, oral, Once, On 08/03/21 at [...] injection documented in this encounter Care Teams Parakeet Raiser Relationship Specialty Start Date End Date Elsewhere, Pcp PCP - General Family Medicine 03/10/20 11/30/21 Ervin Schroeder MD Referring Provider Family Medicine 03/24/[address] [place] [address] documented as of this encounter
--- OUTSIDE RECORDS SUMMARY | 2022-02-12 20:31 | XMS_ITS | Encounter Summary ---
:1990 Author Organization [facility] Address [address] [place] [address] Care Team Providers Name Role Phone Elsewhere, Pcp Primary Care Provider Unavailable Reason for Referral Appointment Request (Routine) - Closed Specialty Diagnoses / Procedures Referred By Contact Refer red To Contact Diagnoses Cirrhosis Alcoholic (HCC) Ascites Anemia Macrocytic Thrombocytopenia (HCC) Deficiency Coagulation Acquired (HCC) Kerry Naranjo APRN, Procedures Prothrombin Time (PT) C.N.P., M.S.N. [address] [place] [phone] Referral ID Status Reason Start Date Expiration Date Visits Requ ested Visits Authorized [id number] Closed 07/07/2021 07/07/2022 1 Reason for Visit Appointment Request (Routine) - Closed Specialty Diagnoses / Procedures Referred By Contact Refer red To Contact Diagnoses Cirrhosis Alcoholic (HCC) Ascites Anemia Macrocytic Thrombocytopenia (HCC) Deficiency Coagulation Acquired (HCC) Kerry Naranjo APRN, Procedures Prothrombin Time (PT) C.N.P., M.S.N. 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 Thrombocytopenia (HCC); [address] [facility] Deficiency Coagulation Acquired ([place]) [place] [phone] Social History Tobacco Use Types Packs/Day Years [...] you attend buddhist or Patient refused 2021 baptist services? 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 [address] [place] [phone] Virtual Visit Transplant Matthew Jerome 2 Tyrell Rodriguez M.D. [address] [place] [phone] Office Visit Gastroenterology and Matthew Jerome 2 Hepatology Tyrell Rodriguez M.D. [address] [place] [phone] Appointment Radiology Matthew Jerome 2 Vik RodriguezBLilian Bedolla [address] [place] [phone] Hospital Gastroenterology and Orchantell Matthew Cirrhos is Alcoholic (HCC) 2 Encounter Hepatology Tyrell Rodriguez M.D. [address] [place] [phone] Anesthesia Event Gastroenterology and Rl, 2 Hepatology Ervin Burgos M.D. [address] [place] [phone] Surgery Gastroenterology and LuischantellMatthew ESOPHAG OGASTRODUODENOSCOPY 2 Hepatology Vik RodriguezBLilian Bedolla [address] [place] [phone] Scheduled Procedures Name Priority Associated Diagnoses Date/Time ESOPHAGOGASTRODUODENOSCOPY Cirrhosis Alc oholic (HCC) 03/20/2022 8:45 AM LEAD TRAINER Hypertension Portal (HCC) documented as of this encounter Procedures Procedure Name Priority Date/Time Associated Diagnosis Comme nts PROTHROMBIN TIME Routine 08/28/2021 5:01 PM Cirrhosis Alcoholi c Results for this (PT), P CDT (HCC) procedure are in Ascites the results Anemia Macrocyti c section. Thrombocytopenia (HCC) Deficiency Coagulation Acquired (HCC) documented in this encounter Results (ABNORMAL) Prothrombin Time (PT) (08/28/2021 5:01 PM CDT) [facility] gist Method Time Signature Prothrombin 25.9 [...] Code Phon e Number [facility]- [address] [place] [address] [facility] [place] [address] System in [place] [address] documented in this encounter Visit Diagnoses Diagnosis Cirrhosis Alcoholic (HCC) Ascites Anemia Macrocytic Thrombocytopenia (HCC) Deficiency Coagulation Acquired (HCC) Cirrhosis Alcoholic (HCC) Cirrhosis Alcoholic (HCC) Hypertension Portal (HCC) documented in this encounter Care Teams Flatwork Tier Relationship Specialty Start Date End Date Elsewhere, Pcp PCP - General Family Medicine 03/10/20 11/30/21 [facility] [place] [facility] 08/25/21 Ervin Schroeder MD Referring Provider Family Medicine 03/24/[address] [place] [address] documented as of this encounter
--- OUTSIDE RECORDS SUMMARY | 2022-02-12 20:32 | XMS_ITS | Encounter Summary ---
:1990 Author Organization [facility] Address [address] [place] [address] Care Team Providers Name Role Phone Elsewhere, Pcp Primary Care Provider Unavailable Reason for Visit Reason Comments Epistaxis (Nose Bleed) Encounter Details Date Type Department Care Team Description 07/25/2021 Nurse Triage Department of Joshua Resendiz (Nose Medicine, [facility], RSumaNSuma Bleed) [facility], in [place], [place] [address] [place] [phone] Social History Tobacco Use Types Packs/Day Years [...] attend roman catholic or Patient refused 2021 orthodoxy services? 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 Call your doctor (or AUTO PARTS PROFESSIONAL/PA) when the office opens and make an [...] [2] direct pressure applied correctly Protocols used: [id number] documented in this encounter Plan of Treatment Upcoming Encounters Date Type Specialty Care Team Description Telemedicine Transplant 2 Appointment Radiology Matthew Jerome 2 Tyrell Rodriguez M.D. [address] [place] [phone] Appointment Gastroenterology and Adrianne, 2 Hepatology Yue Burciaga M.D. [address] [place] [phone] Virtual Visit Transplant LuisNew abdular 2 Tyrell Rodriguez M.D. [address] [place] [phone] Office Visit Gastroenterology and LuisNew abdular 2 Hepatology Tyrell Rodriguez M.D. [address] [place] [phone] Appointment Radiology Matthew Jerome 2 YTyrell M.D. [address] [place] [phone] [address]ology and [facility] Cirrhos is Alcoholic (HCC) 2 Encounter Hepatology Tyrell Rodriguez M.D. [address] [place] [phone] Anesthesia Event Gastroenterology and [facility], 2 Hepatology Ervin Burgos M.D. [address] [place] [phone] Surgery Gastroenterology and [facility] ESOPHAG OGASTRODUODENOSCOPY 2 Hepatology Tyrell Rodriguez M.D. [address] [place] [phone] Scheduled Procedures Name Priority Associated Diagnoses Date/Time ESOPHAGOGASTRODUODENOSCOPY Cirrhosis Alc oholic (HCC) 03/20/2022 8:45 AM MECHANICAL ENGINEERING COOP Hypertension Portal (HCC) documented as of this encounter Visit Diagnoses Not on filedocumented in this encounter Care Teams Rental Sales Agent Relationship Specialty Start Date End Date Elsewhere, Pcp PCP - General Family Medicine 03/10/20 11/30/21 Ervin Schroeder MD Referring Provider Family Medicine 03/24/[address] [place] [phone] documented as of this encounter
--- OUTSIDE RECORDS SUMMARY | 2022-02-12 20:32 | XMS_ITS | Encounter Summary ---
:1990 Author Organization [facility] Address [address] [place] [address] Care Team Providers Name Role Phone Elsewhere, Pcp Primary Care Provider Unavailable Reason for Visit Reason Comments Sleepiness Encounter Details Date Type Department Care Team Description 07/19/2021 Documentation Division of Gastroenterology Wali Baldwin in [facility] pedro Mendez M.D. [address] [facility] [address] [place] [phone] [place], [place] [phone] (Wo rk) Social History Tobacco Use Types [...] you attend yarsanism or Patient refused 2021 mosque services? 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 - 07/19/2021 2:04 AM CDT On-call Fellow Note: Patient is not a patient of [facility] but was connected to the on- call [...] Transplant 2 Appointment Radiology LuisMatthew abdul 2 Joshua RodriguezB.B.SSuma, Lilian [address] [place] [phone] Appointment Gastroenterology demian Silver, 2 Hepatology Yue Burciaga M.D. [address] [place] [phone] Virtual Visit Transplant Matthew Jerome 2 Elizabeth Rodriguez.B.B.SLilian Moise [address] [place] [phone] Office Visit Gastroenterology and Matthew Jerome 2 Hepatology Joshua RodriguezB.B.SLilian Moise [address] [place] [phone] Appointment Radiology Matthew Jerome 2 Y M.B.B.SSuma, Lilian [address] [place] [phone] Hospital Gastroenterology and Matthew Jerome Cirrhos is Alcoholic (HCC) 2 Encounter Hepatology Jennifer M.B.B.SLilian Moise [address] [place] [phone] Anesthesia Event Gastroenterology and Rl, 2 Hepatology Ervin Burgos M.D. [address] [place] [phone] Surgery Gastroenterology and Mousa, Matthew ESOPHAG OGASTRODUODENOSCOPY 2 Hepatology Tyrell Rodriguez M.D. [address] [place] [phone] Scheduled Procedures Name Priority Associated Diagnoses Date/Time ESOPHAGOGASTRODUODENOSCOPY Cirrhosis Alc oholic (HCC) 03/20/2022 8:45 AM TRANSIT BUS OPERATOR Hypertension Portal (HCC) documented as of this encounter Visit Diagnoses Not on filedocumented in this encounter Care Teams Applique Cutter Relationship Specialty Start Date End Date Elsewhere, Pcp PCP - General Family Medicine 03/10/20 11/30/21 Ervin Schroeder MD Referring Provider Family Medicine 03/24/[address] [place] [address] documented as of this encounter
--- OUTSIDE RECORDS SUMMARY | 2022-02-12 20:32 | XMS_ITS | Encounter Summary ---
:1990 Author Organization [facility] Address [address] [place] [address] Care Team Providers Name Role Phone Elsewhere, Pcp Primary Care Provider Unavailable Reason for Visit Reason Comments Leg Swelling Encounter Details Date Type Department Care Team Description 08/01/2021 Nurse Triage [facility] Leg Swelling Medicine, [facility], [facility], in [address] [phone] [place] [address] [phone] Social History Tobacco Use Types Packs/Day Years [...] you attend voodoo or Patient refused 2021 hinduism services? 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 Photos were sent to her geological engineering teacher. History of Alcoholic Cirrhosis, Live failure, chronic [...] or worsening Protocols used: LEG SWELLING AND [id number] documented in this encounter Plan of Treatment Upcoming Encounters Date Type Specialty Care Team Description Telemedicine Transplant 2 Appointment Radiology Matthew Jerome 2 YTyrell M.D. [address] [place] [phone] Appointment Gastroenterology and [facility], 2 Hepatology Yue Burciaga M.D. [address] [place] [phone] Virtual Visit Transplant Mathtew Jerome 2 YVikBLilian Bedolla [address] [place] [phone] Office Visit Gastroenterology and QueenieMatthew 2 Hepatology Tyrell Rodriguez M.D. [address] [place] [phone] Appointment Radiology Matthew Jerome 2 YTyrell M.D. [address] [place] [phone] Hospital Gastroenterology and [place], Matthew Cirrhos is Alcoholic (HCC) 2 Encounter Hepatology Tyrell Rodriguez, Lilian [address] [place] [phone] Anesthesia Event Gastroenterology and Rl, 2 Hepatology Ervin Burgos M.D. [address] [place] [phone] Surgery Gastroenterology and [facility] [place] ESOPHAG OGASTRODUODENOSCOPY 2 Hepatology Tyrell Rodriguez M.D. 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
--- OUTSIDE RECORDS SUMMARY | 2022-02-12 20:32 | XMS_ITS | Encounter Summary ---
:1990 Author Organization [facility] Address [address] [place] [address] Care Team Providers Name Role Phone Elsewhere, Pcp Primary Care Provider Unavailable Encounter Details Date Type Department Care Team Description 07/25/2021 Clinical Communication Department of Ines Warren, Gastroenterology in [address] [place] [phone] Social History Tobacco Use Types Packs/Day Years [...] you attend sabianist or Patient refused 2021 sabianist services? 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 - 07/25/2021 2:57 PM CDT Patient called back again. Patient states that she is going to call 911 for an ambulance. Patient states that her abdominal pain is bad and she is becoming increasing confused. Patient [facility] to go to[facility] for evaluation. Told patient to request [facility]. Patient is home alone as her mother and fiance are [facility] Telephone Encounter - Kerry Naranjo APRN, C.N.P., M.S.N. - 07/25/2021 2:41 PM CDT APOORVAI In case you get a call on this [facility] clinic cirrhotic. Payne Telephone Encounter - [...] Appointment Radiology Matthew Jerome 2 YTyrell M.D. [address] [place] [address] [phone] Appointment Gastroenterology and Adrianne, 2 Hepatology Yue Burciaga M.D. [address] [place] [phone] Virtual Visit Transplant Matthew Jerome 2 Tyrell Rodriguez M.D. [address] [place] [address] [phone] Office Visit Gastroenterology and Matthew Jerome 2 Hepatology Tyrell Rodriguez M.D. [address] [place] [address] [phone] Appointment Radiology Matthew Jerome 2 Tyrell Rodriguez M.D. [address] [place] [address] [phone] Hospital Gastroenterology and Matthew Jerome Cirrhos is Alcoholic (HCC) 2 Encounter Hepatology Tyrell Rodriguez M.D. [address] [place] [address] [phone] Anesthesia Event Gastroenterology and Rl, 2 Hepatology Ervin Burgos M.D. [address] [place] [address] [phone] Surgery Gastroenterology and Mousa, Matthew ESOPHAG OGASTRODUODENOSCOPY 2 Hepatology Tyrell Rodriguez M.D. [address] [place] [phone] Scheduled Procedures Name Priority Associated Diagnoses Date/Time ESOPHAGOGASTRODUODENOSCOPY Cirrhosis Alc oholic (HCC) 03/20/2022 8:45 AM INTERNAL COMBUSTION ENGINE SUBASSEMBLER Hypertension Portal (HCC) documented as of this encounter Visit Diagnoses Not on filedocumented in this encounter Care Teams Trestle Mechanic Relationship Specialty Start Date End Date Elsewhere, Pcp PCP - General Family Medicine 03/10/20 11/30/21 Ervin Schroeder MD Referring Provider Family Medicine 03/24/[address] [place] [phone] documented as of this encounter
--- OUTSIDE RECORDS SUMMARY | 2022-02-12 20:32 | XMS_ITS | Encounter Summary ---
:1990 Author Organization [facility] Address [address] [place] [address] Care Team Providers Name Role Phone Elsewhere, Pcp Primary Care Provider Unavailable Encounter Details Date Type Department Care Team Description 07/18/2021 Nurse Triage Department of Samia Boyd ch, R.NSuma Medicine, [facility], in [address] [place], [place] [address] [place] [phone] [place] [address] [phone] Social History Tobacco Use Types Packs/Day Years [...] you attend restorationist or Patient refused 2021 uatsdin services? 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 - 07/18/2021 10:48 PM CDT Chief Complaint / Reason for Call Patient is a 31 y.o. female calling regarding No chief complaint on file.. Assessment Concern: Patient seen in [facility] via ambulance this evening, boyfriend found [...] does have appointment Friday 07/21 with her Continuing Education Instructor Kerry Naranjo CNP for followup. Patient generally frustrated she wasn't given much information or answers in ED visit. Present for: today Home cares tried: takes medications as prescribed Calling to request: advice The recommended disposition is Information or Advice Only Call. Patient agrees to call back if worsens, has followup appointment with fabrication mig welder Kerry Naranjo who has been following her, also with her PCP outside [place] on Wednesday, 07/23. Patient and significant other agree to call back if worsens or have additional questions. documented in this encounter Plan of Treatment Upcoming Encounters Date Type Specialty Care Team Description Telemedicine Transplant 2 Appointment Radiology LuisNew abdular 2 YTyrell M.D. [address] [place] [address] [phone] Appointment Gastroenterology demian Silver, 2 Hepatology Yue Burciaga M.D. [address] [place] [phone] Virtual Visit Transplant LuisMatthew abdul 2 YTyrell M.D. [address] [place] [address] [phone] Office Visit Gastroenterology and LuisMatthew abdul 2 Hepatology Tyrell Rodriguez M.D. [address] [place] [address] [phone] Appointment Radiology LuisMatthew abdul 2 YTyrell M.D. [address] [place] [phone] Hospital Gastroenterology and LuisMatthew abdul Cirrhos is Alcoholic (HCC) 2 Encounter Hepatology Tyrell Rodriguez M.D. [address] [place] [address] [phone] Anesthesia Event Gastroenterology and Rl, 2 Hepatology Ervin Burgos M.D. [address] [place] [phone] Surgery Gastroenterology and Mousa, Matthew ESOPHAG OGASTRODUODENOSCOPY 2 Hepatology Tyrell Rodriguez M.D. 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
--- OUTSIDE RECORDS SUMMARY | 2022-02-12 20:32 | XMS_ITS | Encounter Summary ---
:1990 Author Organization [facility] Address [address] [place] [address] Care Team Providers Name Role Phone Elsewhere, Pcp Primary Care Provider Unavailable Reason for Referral Outpatient (Routine) - Closed Specialty Diagnoses / Referred By Contact Referred To Procedures [facility] Katrin VIGIL.NDayne, M.S.N. [address] [place] [phone] Referral ID Status Reason Start Date Expiration Date Visits Requ ested Visits Authorized [id number] Closed 07/21/2021 07/21/2022 1 1 edication Prior Authorization - Closed Specialty Diagnoses / Procedures Referred By Contact Refer red To Contact Kerry Naranjo APRN, C.N.Shanita., M.S.N. [address] [place] [phone] Referral ID Status Reason Start Date Expiration Date Visits Requ ested Visits Authorized [id number] Closed 1 1 Reason for Visit Outpatient (Routine) - Closed Specialty Diagnoses / Referred By Contact Referred To Procedures Contact Gastroenterology and Kerry Naranjo, [facility] Hepatology Katrin VIGIL.NDayne, M.S.N. [address] [place] [phone] Referral ID Status Reason Start Date Expiration Date Visits Requ ested Visits Authorized [id number] Closed 04/17/2021 04/17/2022 1 1 Encounter Details Date Type Department Care Team Description 07/21/2021 Telemedicine Department of Kerry Naranjo Cirrhosis Alc oholic (HCC) (Primary Dx); Gastroenterology in S, SERVICES DELIVERY DRIVER, [facility]; [place], [place] C.N.P., Deficiency Vitamin D; [address] [facility] M.S.N. Malnutrition Protein-Calorie Unspecified (HCC); [place] [phone] [facility] Deficiency Coagulation Acquired (HCC); [phone] [place], [place] Thrombocytopeni a (HCC); [phone] Jaundice Social History Tobacco Use Types Packs/Day [...] you attend protestant or Patient refused 2021 druze services? 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 For emergency situation she should present to any emergency department that is closest to her. documented in this encounter Progress Notes Kerry Naranjo APRN, C.N.P., M.S.N. - 07/21/2021 2:45 PM CDT Kerry Naranjo APRN, C.N.P., M.S.N. [address] [place] [phone] Patient Name: Catia Carias Date of : 1990 Date of encounter: 07/21/21 ELSEWHERE, PCP VIDEO VISIT Consult conducted via real-time audio/video technology by Kerry Naranjo APRN, C.N.P., M.S.N. at the [facility] to the patient in their home. At the time the patient was scheduled, the hogshead roller read the following script to the patient: [...] primary care provider Dr. Ervin Schroeder, from [facility] in [facility]; phone [phone], . She stateshe prescribed vitamin-D for GERD [...] and Family: Twice a week ??? Attends Restoration Services: Never ??? Active Member of Clubs [...] taking this supplement as her attempts to machine pecan picker from her pharmacy were unsuccessful. -ordered [...] to find a internal medicine provider at [facility] or [place]; if she feels she needs to be seen more urgently; I would recommend the [facility] which is closest to her. For [...] care as described above. Kerry Naranjo APRN, Katrin.NLala., M.S.N. Gastroenterology and Hepatology [facility] documented in this encounter Plan of Treatment Upcoming Encounters Date Type Specialty Care Team Description Telemedicine Transplant 2 Appointment Radiology Matthew Jerome 2 Y, VikBLilian Bedolla [address] [place] [phone] Appointment Gastroenterology and Adrianne, 2 Hepatology Yue Burciaga M.D. [address] [place] [phone] Virtual Visit Transplant Matthew Jerome 2 Tyrell Rodriguez M.D. [address] [place] [phone] Office Visit Gastroenterology and Matthew Jerome 2 Hepatology Tyrell Rodriguez M.D. [address] [place] [phone] Appointment Radiology Matthew Jerome 2 Tyrell Rodriguez M.D. [address] [place] [phone] Hospital Gastroenterology and Matthew Jerome Cirrhos is Alcoholic (HCC) 2 Encounter Hepatology Tyrell Rodriguez M.D. [address] [place] [phone] Anesthesia Event Gastroenterology and Rl, 2 Hepatology Ervin Burgos M.D. [address] [place] [phone] Surgery Gastroenterology and LuischantellMatthew ESOPHAG OGASTRODUODENOSCOPY 2 Hepatology Joshua RodriguezBSumaBLilian Bedolla [address] [place] [phone] Scheduled Procedures Name Priority Associated Diagnoses Date/Time ESOPHAGOGASTRODUODENOSCOPY Cirrhosis Alc oholic (HCC) 03/20/2022 8:45 AM LEAK PATCHER Hypertension Portal (HCC) Scheduled Referrals Name Type [...] (HCC) documented in this encounter Care Teams Pipe Fitter Street Service Relationship Specialty Start Date End Date Elsewhere, Pcp PCP - General Family Medicine 03/10/20 11/30/21 Ervin Schroeder MD Referring Provider Family Medicine 03/24/[address] [place] [phone] documented as of this encounter
--- OUTSIDE RECORDS SUMMARY | 2022-02-12 20:32 | XMS_ITS | Encounter Summary ---
:1990 Author Organization [facility] Address [address] [place] [address] Care Team Providers Name Role Phone Elsewhere, Pcp Primary Care Provider Unavailable Reason for Visit Reason Comments Vomiting Pt reports hx of liver cirrh osis, states discussed symptoms of vomiting, inability to tolerate home m edications with specialty team and referred to ED for further evaluation. Encounter Details Date Type Department Care Team Description 07/25/2021 [facility] [address] [place] [phone] Abdominal Pain (Primary Dx); 07/26/2021 [facility] Les Jj D.O. [address] [place] [phone] Nausea And Vomiting Emergency Department [facility] [place] [address] Social History Tobacco Use Types [...] you attend spiritism or Patient refused 2021 anabaptist services? 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 Godwin. Disposition pending transfer to [place] for abdominal pain, generalized weakness, nausea/vomiting,underlying liver [...] and Family: Twice a week ??? Attends Taoism Services: Never ??? Active Member of Clubs [...] Appointment Radiology Matthew Jerome 2 YTyrell M.D. [address] [place] [address] [phone] Appointment Gastroenterology and Adrianne, 2 Hepatology Yue Burciaga M.D. [address] [place] [phone] Virtual Visit Transplant Matthew Jerome 2 YTyrell M.D. [address] [place] [phone] Office Visit Gastroenterology and [facility] 2 Hepatology Tyrell Rodriguez M.D. [address] [place] [phone] Appointment Radiology [facility] 2 YTyrell M.D. [address] [place] [phone] Hospital Gastroenterology and [facility] Cirrhos is Alcoholic (HCC) 2 Encounter Hepatology Tyrell Rodriguez M.D. [address] [place] [phone] Anesthesia Event Gastroenterology and Rl, 2 Hepatology Ervin Burgos M.D. [address] [place] [phone] Surgery Gastroenterology and [facility] ESOPHAG OGASTRODUODENOSCOPY 2 Hepatology Tyrell Rodriguez M.D. [address] [place] [phone] Scheduled Procedures Name Priority Associated Diagnoses Date/Time ESOPHAGOGASTRODUODENOSCOPY Cirrhosis Alc oholic (HCC) 03/20/2022 8:45 AM COLOR MAKER DYER Hypertension Portal (HCC) documented as of this [...] PCR Rapid, V (07/25/2021 9:50 PM CDT) [facility] Method Time Signature SARS CoV-2, Undetected Undetected 07/25/2021 MKTO PCR, Rapid, V 10:32 PM CDT Comment: ----ADDITIONAL INFORMATION---- This RT-PCR test was performed using the Daniel SARS-CoV-2 and Influenza A/B Reagent assay from [employer], which has received Emergency Use Authori zation(EUA) by the U.S. Food and Drug Administration . Fact sheets for this Emergency Use Autho rization (EUA) assay can be found at the following link s: For Healthcare Providers: https://www.fda.gov/media/585875/downloa d For Patients: https://www.fda.gov/media/505176/downloa d SARS Coronavirus 2, Source, Swab, Nasopharynx 07/02 10:06 PM CDT MKTO Rapid Specimen Anatomical Collection Method Collection Time Receive d Time (Source) Location / / Volume Laterality Varies 07/25/2021 9:50 PM CDT 10:06 PM CDT Antohny Godwin M.D. LAB MICROBIOLOGY - GENERAL O RDERABLES Performing Organization Address City/State/ZIP Code Phon e Number [facility]- [facility] [place] [address] [place] [address] System in [place] [address] [place] [address] SARS Coronavirus 2, PCR, V Asymptomatic (07/25/2021 9:50 PM CDT) athologist Signature SARS-Coronavir CANCELED 07/25/2021 MKTO us-2, PCR 10:06 PM CDT Comment: ----ADDITIONAL INFORMATION---- This RT-PCR test using the Xpert Xpress SARS-CoV-2/Flu/RSV assay ([facility] performed on the [employer] rt DX systems has received Emergency Use Authorization (EU A) by the U.S. Food and Drug Administration. Performanc e characteristics were verified by [facility] inic in a manner consistent with CLIA requirements . Fact sheets for this Emergency Use Autho rization (EUA) assay can be found at the following link s: For Healthcare Providers: https://www.fda.gov/media/930726/downloa d For Patients: https://www.fda.gov/media/570504/downloa d Result canceled by the ancillary. Specimen Source CANCELED 07/25/2021 10:06 PM CDT MKALIE Comment: REVISED RESULTS Specimen Anatomical Collection Method Collection Time Receive d Time (Source) Location / / Volume Laterality Varies 07/25/2021 9:50 PM 2 (Nasopharynx) CDT 10:06 PM CDT Narrative [facility] - 07/25/2021 10:06 PM CDT SARS Coronavirus 2, PCR, V was cancelled on 07/25/2021 at 22:06; Duplicate test request. Anthony Godwin M.D. LAB MICROBIOLOGY - GENERAL O RDERABLES Performing Organization Address City/[facility] Code Phon e Number [address] [address] [place] [address] [address] (ABNORMAL) Ammonia (07/25/2021 7:05 PM CDT) P athologist Signature Ammonia, P 81 (H) <=51 07/25/2021 ANN mcmol/L 7:29 PM CDT Specimen Anatomical Collection Method Collection Time Receive d Time (Source) Location / / Volume Laterality Blood (Blood, 07/25/2021 7:05 PM 07/26/19 7:08 Venous) CDT PM CDT Anthony Godwin M.D. LAB BLOOD NON ADD-ON Performing Organization Address City/State/[facility] Phon e Number [facility]- [address] [place] [address] [place] [address] Lipase (07/25/2021 7:05 PM CDT) P athologist Signature Lipase, P 13 13 - 60 U/L 07/25/2021 7:30 MKTO PM CDT Specimen Anatomical Collection Method Collection Time Receive d Time (Source) Location / / Volume Laterality Blood (Blood, 07/25/2021 7:05 PM 07/26/19 7:08 Venous) CDT PM CDT Anthony Godwin M.D. LAB BLOOD ADD-ON Performing Organization Address City/[facility] Phon e Number [facility]- [address] [place] [address] [place] [address] (ABNORMAL) Comprehensive Metabolic Panel (07/25/2021 7:05 [...] CDT eGFR-Black/Afri >90 >=60 07/25/2021 MKTO can Sudanese mL/min/BSA 7:30 PM CDT Comment: ----ADDITIONAL INFORMATION---- [...] PM 07/26/19 7:08 Venous) CDT PM CDT nAthony Godwin M.D. LAB BLOOD ADD-ON Performing Organization Address City/State/ZIP Code Phon e Number [facility]- [address] [place] [phone] [place] [address] [place] [address] (ABNORMAL) CBC with Differential, Blood (07/25/2021 7:05 PM CDT) [facility] gist Method Time Signature Hemoglobin 7.4 (L) [...] Code Phon e Number [facility]- [address] [place] [address] [place] [address] [address] documented in this encounter Visit Diagnoses [...] 10 mg, intravenous, Once, On Wed07/25/21 at 191, For 1 dose morphine injection 2 mg (COMPLETED) 354 (Given - Provider: Ying Delgadillo R.N.) 2 mg, intravenous, Once, On Wed07/26/21 at 031, For 1 dose morphine injection 4 mg (COMPLETED) 2009 (Given - Provider: Keith Bahena R.N.) 4 mg, intravenous, Once, On Wed07/25/21 at 194, For 1 dose NaCl 0.9 % bolus [...] as of this encounter Care Teams Taxi Cab Driver Relationship Specialty Start Date End Date Elsewhere, Pcp PCP - General Family Medicine 03/10/20 11/30/21 Ervin Schroeder MD Referring Provider Family Medicine 03/24/21 [address] [facility] [address] [place] [address] documented as of this encounter
--- OUTSIDE RECORDS SUMMARY | 2022-02-12 20:32 | XMS_ITS | Encounter Summary ---
:1990 Author Organization [facility] Address [address] [place] [phone] Care Team Providers Name Role Phone Elsewhere, Pcp Primary Care Provider Unavailable Reason for Visit Auth/Cert Specialty Diagnoses / Procedures Referred By Contact Refer red To Contact Diagnoses Vomiting Abdominal pain Procedures n/a Referral ID Status Reason Start Date Expiration Date Visits Requ ested Visits Authorized [id number] 1 1 Encounter Details Date Type Department Care Team Description 07/26/2021 - Hospital Encounter [facility] Radha Bennett M. D. [address] [place] [phone] Vomiting (Primary 07/27/2021 [facility] Serene Montgomery M.D. [address] [place] [address] [phone] Dx) [facility], Fifth Floor [address] [place] [address] [phone] Social History Tobacco Use Types Packs/Day Years [...] you attend hoahaoism or Patient refused 2021 yarsani services? Do [...] or vocational p [employer] [facility] degree you have received? 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 Primary Team: T Medicine 1 ([facility]) Primary Care Providers: Elsewhere, Pcp [...] 01 [facility] Laboratory Medicine 08/29/2021 4:00 PM [facility] COVID PRE SCREEN [facility] Family Medicine For appointment details refer to [...] more sleepy than usual. She presented to [facility] emergency department on 07/25 with nausea, [...] local hospital beds, she was transferred to [facility] for further investigation and management. On presentation at [facility], she was in stable condition with [...] 07/26/2021 11:07 AM CDT T Medicine 1 ([facility]) Admission Note SUBJECTIVE CHIEF COMPLAINT [...] admitted locally and she was transferred to [place]. Of note, on 07/06/21, she presented to [...] border. TTE with bubble study showed a zdkfm-pl-xbrw shunt with a severely enlarged left atrium. Cardiology was consulted and recommended follow up with a clinical dietitian in the outpatient setting. Ms. Carias tells [...] with her boyfriend in an apartment in [place], [place]. She is not currently working but usedto work at the [employer] in [place]. Her last drink of alcohol was in [...] intact. No evidence of disorganizedthinking. 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 She has insight into her history of [...] female who presented to the ED in [place] yesterday with nausea and vomiting for about [...] that she followed up with them at [place]. - Plan: ?? Recommend Cardiology outpatient follow [...] questions. Thank you, ZACH Trevizo Clinical Documentation Experimental Physicist Query created by: ZACH Trevizo 07/28/2021 11:55 [...] more sleepy than usual. She presented to [facility] emergency department on 07/25 with nausea, [...] local hospital beds, she was transferred to [facility] for further investigation and management. On presentation at [facility], she was in stable condition with [...] Radiology Matthew Jerome 2, M.B.B.S., M.D. [address] [place] [phone] Appointment Gastroenterdina and Adrianne, 2 Hepatology Yue Burciaga M.D. [address] [place] [phone] Virtual Visit Transplant Matthew Jerome 2 YTyrell M.D. [address] [place] [phone] Office Visit Gastroenterology and Matthew Jerome 2 Hepatology Tyrell Rodriguez M.D. [address] [place] [phone] Appointment Radiology LuisMatthew abdul 2 YTyrell M.D. [address] [place] [phone] [facility] Cirrhos is Alcoholic (HCC) 2 Encounter Hepatology Tyrell Rodriguez M.D. [address] [place] [phone] Anesthesia Event Gastroenterology and Rl, 2 Hepatology Ervin Burgos M.D. [address] [place] [address] [phone] Surgery Gastroenterology and Matthew Jerome ESOPHAG OGASTRODUODENOSCOPY 2 Hepatology Tyrell Rodriguez M.D. [address] [place] [phone] Pending Results Name Type Priority Associated Diagnoses Date/Ti ks Prepare Red Blood Blood Bank Routine 07/26/2021 10:57 AM CDT Cells, 1 Units Scheduled Procedures Name Priority Associated Diagnoses Date/Time ESOPHAGOGASTRODUODENOSCOPY Cirrhosis Alc oholic (HCC) 03/20/2022 8:45 AM OBSERVATION ASSISTANT Hypertension Portal (HCC) documented as of [...] LD (Lactate Dehydrogenase) (07/27/2021 10:15 AM CDT) [facility] LD 218 122 - 222 07/27/2021 DTL U/L 11:27 AM CDT Specimen Anatomical Collection Method Collection Time Receive d Time (Source) Location / / Volume Laterality Blood (Blood, 07/27/2021 10:15 07/27/2021 Venous) AM CDT 11:03 AM CDT Conor Santana., M.S. LAB BLOOD NON ADD-ON Performing Organization Address City/State/ZIP Code Phon e Number [facility] - [address] [place], [place] [address] [facility] [place] [address] [facility] [address] Direct Antiglobulin Test (Poly) (07/27/2021 10:15 AM CDT) [facility] Method Time Signature Direct Negative Negative 07/27/2021 STRM Antiglobulin 10:50 AM CDT Test, Polyspecific Specimen Anatomical Collection Method Collection Time Receive d Time (Source) Location / / Volume Laterality Blood (Blood, 07/27/2021 10:15 07/27/2021 Venous) AM CDT 10:27 AM CDT Conor Santillan, M.S. LAB BLOOD BANK TEST O RDERABLES Performing Organization Address [facility] Phon e Number [facility] - 200 [place], [place] [address] [facility] [place] [address] [facility] 200 [facility] Peripheral Smear Interpretation (07/27/2021 9:39 AM CDT) Component Value Ref Test Analysis Performed Pathologis t Range Method Time At [facility] 07/28/2021 [facility] 10:50 AM CDT Report Marcela Rogers M.D. 07/28/2021 [facility] electronically 10:50 AM signed by CDT I verify that I have examined all relevant slides/materials for the specimen(s) and rendered or confirmed the diagnosis. Interpretation Marked acanthocytosis present, compatible with clini ada 07/28/2021 [facility] history of alcohol-associated cirrhosis. 10:50 AM CDT Specimen Anatomical Collection Method Collection Time Receive d Time (Source) Location / / Volume Laterality Blood 07/27/2021 9:39 AM 9:39 CDT AM CDT Conor Santillan, M.S. LAB PATHOLOGY/CYTOLOG Y ORDERABLES Performing Organization Address City/[facility] Phon e Number [facility] - 200 [place], [place] [address] [place] [address] [facility] 200 [facility] (ABNORMAL) Reticulocytes (07/27/2021 9:39 AM CDT) Patholo gist Method Time [facility] Reticulocytes, B 7.52 (H) 0.60 - 07/27/2021 PM 2.71 % 11:12 AM CDT Absolute 155.7 (H) 30.4 - 07/27/2021 [facility] Reticulocyte 110.9 11:12 AM CDT x10(9)/L Specimen Anatomical Collection Method Collection Time Receive d Time (Source) Location / / Volume Laterality Blood (Blood, 07/27/2021 9:39 AM 07/28/19 9:39 Venous) CDT AM CDT Conor Santillan, M.S. LAB BLOOD ADD-ON Performing Organization Address [facility] Phon e Number [facility] - 200 [place], [place] [address] [place] [address] (ABNORMAL) Morphology Evaluation (Special Smear) (07/27/2021 9:39 AM CDT) Analysis Performed At Patho logist Time Signature Neutrophilic Segs 78 (H) 50 - 75 % 07/28/2021 [facility] and Bands 11:07 AM CDT Lymphocytes 16 (L) 18 - 42 % 07/28/2021 [facility] 11:07 AM CDT Monocytes 6 2 - 11 % 07/28/2021 [facility] 11:07 AM CDT Specimen Anatomical Collection Method Collection Time Receive d Time (Source) Location / / Volume Laterality Blood (Blood, 07/27/2021 9:39 AM 07/28/19 9:39 Venous) CDT AM CDT Conor Santillan, M.S. LAB BLOOD ADD-ON Performing Organization Address [facility] Phon e Number [facility] - 200 [place], [place] [address] [place] [address] (ABNORMAL) CBC with Differential, Blood (07/27/2021 [...] Organization Address City/State/ZIP Code Phon e Number [facility] - [address] [place], [place] [address] [facility] [place] [address] [facility] [address] [facility] (ABNORMAL) Prothrombin Time (PT) (07/27/2021 5:09 AM CDT) [facility] Method Time Signature Prothrombin 31.4 (H) [...] M.D. LAB BLOOD ADD-ON Performing Organization Address [facility] Phon e Number [facility] - [address] [place], [place] [address] [facility] [place] [address] [facility] 200 [facility] (ABNORMAL) Hepatic Function Panel (07/27/2021 5:09 AM CDT) [facility] Method Time Signature Bilirubin, Total, S [...] LAB BLOOD ADD-ON Performing Organization Address City/[facility] Code Phon e Number [facility] - 200 [place] [address] [facility] [place] [address] [facility] [address] (ABNORMAL) Basic Metabolic Panel (07/27/2021 5:09 AM [...] 07/27/2021 DTL Black/ mL/min/BSA 5:52 AM CDT Gabonese Comment: ----ADDITIONAL INFORMATION---- Estimated GFR calculated using [...] Organization Address City/State/ZIP Code Phon e Number [facility] - [address] [place], [place] [address] [place] [address] [facility] [address] [facility] (ABNORMAL) Haptoglobin (07/27/2021 5:04 AM CDT) athologist Signature Haptoglobin, S <14 (L) 30 - 200 07/29/2021 [facility] mg/dL 10:32 AM CDT Specimen Anatomical Collection Method Collection Time Receive d Time (Source) Location / / Volume Laterality Blood (Blood, 07/27/2021 5:04 AM 07/30/19 9:06 Venous) CDT AM CDT Kwabena Zelaya M.D. LAB BLOOD ADD-ON Performing Organization Address City/[facility]/ZIP Code Phon e Number [facility] [place], [place] [address] [facility] [place] [address] Laboratory Medicine and Pathology [address] [place] (ABNORMAL) Hemoglobin (07/26/2021 9:57 PM CDT) athologist Signature Hemoglobin 8.2 (L) 11.6 - 15.0 07/26/2021 DT g/dL 10:19 PM CDT Specimen Anatomical Collection Method Collection Time Receive d Time (Source) Location / / Volume Laterality Blood (Blood, 07/26/2021 9:57 PM 07/27/19 22 Venous) CDT 10:14 PM CDT Ana Montanez M.D. LAB BLOOD ADD-ON Performing Organization Address City/State/ZIP Code Phon e Number [address] [address] [place] [address] [facility] 200 [facility] Transfuse Red Blood Cells : (07/26/2021 [...] cirrhosis. 2. Cholelithiasis. 3. Mild splenomegaly. Virginie M Batista M.D. IMG US PROCEDURES Dipstick, Urine (07/26/2021 12:11 PM CDT) [facility] gist Method Time Signature Hemoglobin, Negative Negative [...] M.D. LAB URINE ORDERABLES Performing Organization Address City/[facility] Phon e Number [facility] - [address] [place] [address] [address] [facility] Osmolality, Urine (07/26/2021 12:11 PM CDT) athologist Signature Osmolality, U 613 150 - 1150 07/26/2021 DTL mOsm/kg 2:34 PM CDT Specimen Anatomical Collection Method Collection Time Receive d Time (Source) Location / / Volume Laterality Urine 07/26/2021 12:11 07/26/2021 PM CDT 12:58 PM CDT Virginie Batista M.D. LAB URINE ORDERABLES Performing Organization Address City/[facility] Phon e Number [facility] - [address] [place], [place] [address] [place] [address] pH, Random, Urine (07/26/2021 12:11 PM CDT) athologist Signature pH, Random, U 6.7 4.5 - 8.0 07/26/2021 DTL 2:34 PM CDT Specimen Anatomical Collection Method Collection Time Receive d Time (Source) Location / / Volume Laterality Urine 07/26/2021 12:11 07/26/2021 PM CDT 12:58 PM CDT Virginie Batista M.D. LAB URINE ORDERABLES Performing Organization Address City/[facility] Phon e Number [facility] - [address] [place] [address] [place] [address] [address] (ABNORMAL) Microscopic Manual (07/26/2021 12:11 PM [...] M.D. LAB URINE ORDERABLES Performing Organization Address City/[facility] Phon e Number [facility] - [address] [place] [address] [place] [address] [address] Urinalysis with Microscopic: Urine, Midstream (07/26/2021 12:11 PM CDT) [facility] Method Time Signature Source Urine, Urine, [...] M.D. LAB URINE ORDERABLES Performing Organization Address [facility] Phon e Number [facility] - 200 [place], [place] [address] [facility] [place] [address] [facility] [address] [facility] (ABNORMAL) Prothrombin Time (PT) (07/26/2021 10:58 AM [...] LAB BLOOD ADD-ON Performing Organization Address City/[facility] Phon e Number [facility] - 200 [place], [place] [address] [facility] [place] [address] [facility] [address] [facility] CRP (C-Reactive Protein) (07/26/2021 10:58 AM CDT) P athologist Signature C-Reactive 4.6 <=8.0 mg/L 07/26/2021 DTL Protein (CRP), 11:55 AM CDT S Specimen Anatomical Collection Method Collection Time Receive d Time (Source) Location / / Volume Laterality Blood (Blood, 07/26/2021 10:58 07/26/2021 Venous) AM CDT 11:38 AM CDT Virginie Batista M.D. LAB BLOOD ADD-ON Performing Organization Address City/State/ZIP Code Phon e Number [facility] - [address] [place], [place] [address] [facility] [place] [address] [facility] [address] (ABNORMAL) Basic Metabolic Panel (07/26/2021 10:58 [...] 07/26/2021 DTL Black/ mL/min/BSA 11:55 AM CDT Gabonese Comment: ----ADDITIONAL INFORMATION---- Estimated GFR calculated using [...] Organization Address City/State/ZIP Code Phon e Number [facility] - [address] [place], [place] [address] [facility] [place] [address] [facility] [address] [facility] (ABNORMAL) CBC with Differential, Blood (07/26/2021 10:58 AM CDT) [facility] Method Time Signature Hemoglobin 6.8 (L) [...] LAB BLOOD ADD-ON Performing Organization Address City/[facility] Phon e Number [facility] - 200 [place], [place] [address] [facility] [place] [address] [facility] [address] [facility] Type and Screen (with reflex Antibody ID) (07/26/2021 10:57 AM CDT) [facility] Method Time Signature ABORh B Pos Not 07/26/2021 STRM applicable 3:48 PM CDT Antibody Negative Negative 07/26/2021 STRM Screen 4:04 PM CDT Type & Screen 07/29/2021 07/26/2021 STRM Expiration 23:59 3:48 PM CDT Testing [place] DEFAULT 07/26/2021 STRM Location 3:29 PM CDT Specimen Anatomical Collection Method Collection Time Receive d Time (Source) Location / / Volume Laterality Blood (Blood, 07/26/2021 10:57 07/26/2021 3:29 Venous) AM CDT PM CDT Virginie Batista M.D. LAB BLOOD BANK TEST ORDERABL ES Performing Organization Address City/[facility] Phon e Number [facility] - [address] [place] [address] 05 [facility] [place] [address] [address] (ABNORMAL) Hepatic Function Panel (07/26/2021 10:57 AM CDT) [facility] Method Time Signature Bilirubin, Total, S 7.5 [...] LAB BLOOD ADD-ON Performing Organization Address City/[facility]/ZIP [facility] Phon e Number [facility] - [address] Magnesium (07/26/2021 10:57 AM CDT) P athologist Signature Magnesium, S 1.8 1.7 - 2.3 07/26/2021 DTL mg/dL 3:17 PM CDT Specimen Anatomical Collection Method Collection Time Receive d Time (Source) Location / / Volume Laterality Blood (Blood, 07/26/2021 10:57 07/26/2021 2:55 Venous) AM CDT PM CDT Virginie Batista M.D. LAB BLOOD ADD-ON Performing Organization Address City/[facility]/ZIP Code Phon e Number [facility] - 200 [place] [phone] [address] ECG 12 Lead (07/26/2021 9:10 AM CDT) P athologist Signature Ventricular Rate 77 BPM MUSE ECG/Min OK Interval 160 ms MUSE QRSD Interval 92 ms MUSE QT Interval 418 ms MUSE QTC Interval 473 ms MUSE P [place] -12 degrees MUSE R [place] 53 degrees MUSE T Wave [place] -6 degrees MUSE Specimen Anatomical Collection Method [...] Address City/State/ZIP Code Phon e Number MUSE BERTHA NA documented in this encounter Visit Diagnoses [...] 10, headaches, Starting on 07/26/21 at 1038 yrytkgdrullkf-lbtuunnfib-qvwllnbp in Lipoderm Given 07/28/19 10:15 AM CDT [...] sleep, Starting on Sat 2 at 1354 oxgorjpjoctz-dlyh-ON-Ca-minerals 400 mcg Given 07/27/2021 8:00 A M [...] R.N.) 0800 (Given - Provider: Celena Richardson RGabby) 20 mg, oral, Daily, First dose on 07/26/21 at 1045 gabapentin capsule 300 mg (NEURONTIN) 14 09 (Given - Provider: Humera Murray RGabby)2006 (Given [...] R.N.) 0800 (Given - Provider: Celena damon R.N.) 400 mg, oral, 2 times daily before break fast and dinner, First dose on 07/26/21 at 1600 wyoasaemvvap-kjpe-PR-Ca-minerals 400 mcg (folic acid) tablet 1 tablet (THERAPEUTIC-M) 0800 (Given - Provid er: Celena Richardson R.N.) 1 tablet, oral, Daily, First dose on 07/27/[address] tablet 40 mg (PROTONIX) 0800 (Given - Provider: Celena Richardson R.N.) 40 mg, oral, Daily before breakfast, Fir st dose on 07/27/21 at 0700, Swallow whole. Do NOT crush, chew, or split tablet. potassium chloride ER tablet 40 mEq (KLORCON/K-TAB) (COMPLET ED) 1409 (Given - Provider: Humera Murray R.N.) 40 mEq, oral, Once, On 07/26/21 at 13 45, For 1 dose, For K 3-3.4 mEq/L - give total of 40 mEq Swallow whole. Do NOT crush, chew, or split tablet., Monitor the following for replacement: Potassium, Replace Potassium per: Standard Schedule rifAXIMin tablet 550 mg (XIFAXAN) 2006 (Given - Provider: Ana Paula Noriega R.N.) 0800 (Given - Provider: Celena Richardson R.N.) 550 mg, oral, 2 times daily, First dose on 07/26/21 at 2100, For 86 days, Indications: Prophylaxis, medical spironolactone tablet 50 mg (ALDACTONE) 1116 (Given - Provider: Humera Murray R.N.) 0800 (Given - Provider: Celena damon RGabby) 50 mg, oral, Daily, First dose on 07/26/21 at 1045 thiamine tablet 100 mg (VITAMIN B1) 0800 (Given - Provider: Celena Richardson R.N.) 100 mg, oral, Every morning, First dose [...] 16 14 (Given - Provider: Humera Murray R.NSuma) 325 mg, oral, Every 6 hours PRN, mild pa in or score 1-3 of 10, moderate pain or score 4-6 of 10, severe pain or score 7-10 of 10, headaches, Starting on 07/26/21 at 1038 ytmmfkfszcazm-rdnannfyob-lqpdqoha in Lipoderm 2%-5%-5% cream 1 g 1220 [...] (ZOFRAN-ODT) 1722 (Given - Provider: Humera Murray, R.NSuma) 4 mg, oral, Every 6 hours PRN, nausea, v omiting, Starting on 07/26/21 at 1615, When splitting ODT at bedside, handle with gloves and a pill splitter to prevent moisture contact. oxyCODONE IR tablet 5 mg (ROXICODONE) 11 16 (Given - Provider: Andrew MorganNSuma)2237 (Given - Provider: Ana Paula Norigea R.N.) 0813 (Given - Provider: Celena Richardson, R.N.)8314 (Given - Provider: Celena Richardson, R.N.) 5 mg, oral, Every 6 hours PRN, moderate pain or score 4-6 of 10, severe pain or score 7-10 of 10, Starting on 07/26/21 at 1036 documented in this encounter Care Teams Transition Mgr Relationship Specialty Start Date End Date Elsewhere, Pcp PCP - General Family Medicine 03/10/20 11/30/21 Ervin Schroeder MD Referring Provider Family Medicine 03/24/[address] [place] [phone] documented as of this encounter
--- OUTSIDE RECORDS SUMMARY | 2022-02-12 20:32 | XMS_ITS | Encounter Summary ---
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 [address] [place] [phone] Virtual Visit Transplant Matthew Jerome 2 Vik RodriguezBLilian Bedolla [address] [place] [phone] Office Visit Gastroenterology and Matthew Jerome 2 Hepatology Vik RodriguezBLilian eBdolla [address] [place] [phone] Appointment Radiology Matthew Jerome 2 YTyrell, Lilian [address] [place] [address] [phone] Hospital Gastroenterology and [facility] Cirrhos is Alcoholic (HCC) 2 Encounter Hepatology Tyrell Rodriguez M.D. [address] [place] [phone] Anesthesia Event Gastroenterology and [facility], 2 Hepatology Ervin Burgos M.D. [address] [place] [address] [phone] Surgery Gastroenterology and [facility] ESOPHAG OGASTRODUODENOSCOPY 2 Hepatology Tyrell Rodriguez M.D. 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
--- OUTSIDE RECORDS SUMMARY | 2022-02-12 20:32 | XMS_ITS | Encounter Summary ---
:1990 Author Organization [facility] Address [address] [place] [address] Care Team Providers Name Role Phone Elsewhere, Pcp Primary Care Provider Unavailable Reason for Visit Reason Comments Altered Mental Status Urinary Tract Infection Encounter Details Date Type Department Care Team Description 07/19/2021 Nurse Triage Department of Catia Fagan [facility] Medicine, [place] R, R.N. Status; Urinary Tract Clinic, in [place], [address] Infection [place], [place] [address] [place] [phone] [place] [address] [phone] Social History Tobacco Use Types Packs/Day Years [...] you attend yazidi or Patient refused 2021 spiritism services? 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 [address] [place] [phone] Appointment Gastroenterology demian Silver 2 Hepatology Yue Burciaga M.D. [address] [place] [phone] Virtual Visit Transplant Luischantell Matthew 2 YTyrell M.D. [address] [place] [phone] Office Visit Gastroenterology and Matthew Jerome 2 Hepatology Tyrell Rodriguez M.D. [address] [place] [phone] Appointment Radiology Matthew Jerome 2 YTyrell M.D. [address] [place] [phone] Hospital Gastroenterology and QueenieMatthew Cirrhos is Alcoholic (HCC) 2 Encounter Hepatology Tyrell Rodriguez M.D. [address] [place] [phone] Anesthesia Event Gastroenterology and Rl, 2 Hepatology Ervin Burgos M.D. 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
--- OUTSIDE RECORDS SUMMARY | 2022-02-12 20:32 | XMS_ITS | Encounter Summary ---
:1990 Author Organization [facility] Address [address] [place] [address] Care Team Providers Name Role Phone Elsewhere, Pcp Primary Care Provider Unavailable Encounter Details Date Type Department Care Team Description 07/16/2021 Clinical Communication Department of Kerry Naranjo [facility] in [place], [place] C.N.P., M.S.N. [address] [facility] [address] [place] [address] [place], [place] [phone] Social History Tobacco Use Types Packs/Day [...] attend jehovah's witness or Patient refused 2021 sabianist services? Do [...] Appointment Radiology Matthew Jerome 2 YJoshuaB.BGraeme, Lilian [address] [place] [phone] Appointment Gastroenterology and Adrianne, 2 Hepatology Yue Burciaga M.D. [address] [place] [phone] Virtual Visit Transplant LuisMatthew abdul 2 Y MSumaB.BLilian Bedolla [address] [place] [phone] Office Visit Gastroenterology and Matthew Jerome 2 Hepatology Joshua RodriguezBSumaBLilian Bedolla [address] [place] [phone] Appointment Radiology Queenie Matthew 2 YJoshuaB.B.Kath, Lilian [address] [place] [phone] [facility] Gastroenterology and Matthew Jerome Cirrhos is Alcoholic (HCC) 2 Encounter Hepatology Joshua RodriguezB.B.Lilian Stockton [address] [place] [phone] Anesthesia Event Gastroenterology and Rl, 2 Hepatology Ervin Burgos M.D. [address] [place] [phone] Surgery Gastroenterology and Matthew Jerome ESOPHAG OGASTRODUODENOSCOPY 2 Hepatology Y M.B.B.Kath, Lilian [address] [place] [phone] Scheduled Procedures Name Priority Associated Diagnoses Date/Time ESOPHAGOGASTRODUODENOSCOPY Cirrhosis Alc oholic (HCC) 03/20/2022 8:45 AM DOG OR ANIMAL SITTER Hypertension Portal (HCC) documented as of this encounter Visit Diagnoses Not on filedocumented in this encounter Care Teams Mfg Assoc Relationship Specialty Start Date End Date Elsewhere, Pcp PCP - General Family Medicine 03/10/20 11/30/21 Ervin Schroeder MD Referring Provider Family Medicine 03/24/[address] [place] [phone] documented as of this encounter
--- OUTSIDE RECORDS SUMMARY | 2022-02-12 20:32 | XMS_ITS | Encounter Summary ---
:1990 Author Organization [facility] Address [address] [place] [address] Care Team Providers Name Role Phone Elsewhere, Pcp Primary Care Provider Unavailable Encounter Details Date Type Department Care Team Description 07/15/2021 Hospital Encounter Department of Kerry Naranjo is Alcoholic Laboratory Medicine S, COLLAR TURNER OPERATOR, (HCC) in [place], C.N.PSuma, M.S.N[address] [place] [phone] Social History Tobacco Use Types Packs/Day Years [...] you attend voodoo or Patient refused 2021 christianity services? 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 [address] [place] [phone] Virtual Visit Transplant LuisMatthew abdul 2 Y MSumaB.BLilian Bedolla [address] [place] [phone] Office Visit Gastroenterology and Matthew Jerome 2 Hepatology Joshua RodriguezBSumaBLilian Bedolla [address] [place] [phone] Appointment Radiology Queenie Matthew 2 YJoshuaB.B.Kath, Lilian [address] [place] [phone] [facility] Gastroenterology and Matthew Jerome Cirrhos is Alcoholic (HCC) 2 Encounter Hepatology Joshua RodriguezB.B.Lilian Stockton [address] [place] [phone] Anesthesia Event Gastroenterology and Rl, 2 Hepatology Ervin Burgos M.D. 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 Hypertension Portal (HCC) documented as of this [...] BLOOD NON ADD- ON Performing Organization Address City/State/ZIP Code Phon e Number [facility] - [address] [place], [place] [address] [facility] [place] [address] Laboratories-[facility] [address] (ABNORMAL) Hepatic Function Panel [...] Organization Address City/State/ZIP Code Phon e Number [facility]- [address], [place] [address] [place] [address] System in [place] [address] [place] [address] Basic Metabolic Panel (07/15/2021 10:49 AM CDT) [...] CDT eGFR-Black/Afric >90 >=60 07/15/2021 OWAT an [place] mL/min/BSA 1:52 PM CDT Comment: ----ADDITIONAL INFORMATION---- [...] Organization Address City/State/ZIP Code Phon e Number [facility]- [address] [place] [address] [place] [address] System in [place] [address] [facility] (ABNORMAL) CBC with Differential, Blood (07/15/2021 10:49 AM CDT) [facility] Method Time Signature Hemoglobin 8.2 (L) 11.6 [...] 07/15/2021 Venous) AM CDT 10:49 AM CDT Katrin Newsome APRN.NLala., M.S.N. LAB BLOOD ADD-ON Performing Organization Address City/State/ZIP Code Phon e Number [place] [address] [place] [address] [facility] [place] [address] [address] documented in this encounter Visit Diagnoses Diagnosis Cirrhosis Alcoholic (HCC) Cirrhosis Alcoholic (HCC) Cirrhosis Alcoholic (HCC) Hypertension Portal (HCC) documented in this encounter Care Teams Analysis Internship Relationship Specialty Start Date End Date Elsewhere, Pcp PCP - General Family Medicine 03/10/20 11/30/21 Ervin Schroeder MD Referring Provider Family Medicine 03/24/[address] [place] [address] documented as of this encounter
--- OUTSIDE RECORDS SUMMARY | 2022-02-12 20:33 | XMS_ITS | Encounter Summary ---
:1990 Author Organization [facility] Address [address] [place] [address] Care Team Providers Name Role Phone Elsewhere, Pcp Primary Care Provider Unavailable Encounter Details Date Type Department Care Team Description 06/26/2021 Clinical Communication Department of Jesse [facility] in [place], [place] PAshish, M.S. [address] [facility] 10[address] [place] [address] [place], [place] [phone] Social History Tobacco Use Types Packs/Day [...] you attend gnosticist or Patient refused 2021 mormonism services? 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 - 06/26/2021 3:16 PM BLACK TOP RAKER Could you put in an INR check for this patient? She will be having her EGD rescheduled per Dr. Paul.Last INR was 2.7 and has not been rechecked recently. If she has the procedure done in our soonest opening, she will need to have the INR drawn tomorrow (06-27-21) or Wednesday (06-30-21). Thank you for your help. Paty K TOP RAKER documented in this encounter Plan of Treatment Upcoming Encounters Date Type Specialty Care Team Description Telemedicine Transplant 2 Appointment Radiology Matthew Jerome 2 YTyrell M.D. [address] [place] [phone] Appointment Gastroenterology and Adrianne, 2 Hepatology Yue Burciaga M.D. [address] [place] [phone] Virtual Visit Transplant LuisNew abdular 2 Tyrell Rodriguez, Lilian [address] [place] [phone] Office Visit Gastroenterology and Matthew Jerome 2 Hepatology Tyrell Rodriguez M.D. [address] [place] [phone] Appointment Radiology LuisNew abdular 2 Tyrell Rodriguez, Lilian [address] [place] [phone] Hospital Gastroenterology and Matthew Jerome Cirrhos is Alcoholic (HCC) 2 Encounter Hepatology Tyrell Rodriguez, Lilian [address] [place] [phone] Anesthesia Event Gastroenterology and Rl, 2 Hepatology Ervin Burgos M.D. [address] [place] [phone] Surgery Gastroenterology and Matthew Jerome ESOPHAG OGASTRODUODENOSCOPY 2 Hepatology Joshua RodriguezBSumaBGraeme, Lilian [address] [place] [phone] Scheduled Procedures Name Priority Associated Diagnoses Date/Time ESOPHAGOGASTRODUODENOSCOPY Cirrhosis Alc oholic (HCC) 03/20/2022 8:45 AM BLACK TOP RAKER Hypertension Portal (HCC) documented as of this encounter Visit Diagnoses Not on filedocumented in this encounter Care Teams Loss Control Representative Relationship Specialty Start Date End Date Elsewhere, Pcp PCP - General Family Medicine 03/10/20 11/30/21 Ervin Schroeder MD Referring Provider Family Medicine 03/24/[address] [place] [address] documented as of this encounter
--- OUTSIDE RECORDS SUMMARY | 2022-02-12 20:33 | XMS_ITS | Encounter Summary ---
:1990 Author Organization [facility] Address [address] [place] [address] Care Team Providers Name Role Phone Elsewhere, Pcp Primary Care Provider Unavailable Encounter Details Date Type Department Care Team Description 05/23/2021 Clinical Communication Department of Felicita Spicer Gastroenterology in [place], [place] [phone] 1025 [facility] [place] [address] Social History Tobacco Use Types Packs/Day [...] you attend amish or Patient refused 2021 latter day services? 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 Carton Catcher did inform her that often withliver disease the recommendations are to avoid all NSAIDs but that tylenol can be used in moderationas needed. She states she was just wondering as lots of the cold medications do contain tylenol and she just wanted to be sure it was okay for her to take before using any of the OTC cold medications. She also asked typewriters functional tester to pass along to Kerry as there [...] She wonders if this could have contributed. Carton Catcher informed patient I would get all her questions to the provider and update her with her response regarding the cold medication. She had no further questions at this time. Y LEVEL JAVA DEVELOPER documented in this encounter Plan of Treatment Upcoming Encounters Date Type Specialty Care Team Description Telemedicine Transplant 2 Appointment Radiology Queenie Matthew 2 YTyrell M.D. [address] [place] [phone] Appointment Gastroenterology demian Silver 2 Hepatology Yue Burciaga M.D. [address] [place] [phone] Virtual Visit Transplant Matthew Jerome 2 Tyrell Rodriguez M.D. [address] [place] [phone] Office Visit Gastroenterology and Matthew Jerome 2 Hepatology Tyrell Rodriguez M.D. [address] [place] [phone] Appointment Radiology Matthew Jerome 2 YTyrell M.D. [address] [place] [phone] Hospital Gastroenterology and Queenie Matthew Cirrhos is Alcoholic (HCC) 2 Encounter Hepatology Tyrell Rodriguez M.D. [address] [place] [phone] Anesthesia Event Gastroenterology and Rl, [place] Hepatology Ervin Burgos M.D. [address] [place] [phone] Surgery Gastroenterology and Matthew Jerome ESOPHAG OGASTRODUODENOSCOPY 2 Hepatology Tyrell Rodriguez M.D. [address] [place] [address] Scheduled Procedures Name Priority Associated Diagnoses Date/Time ESOPHAGOGASTRODUODENOSCOPY Cirrhosis Alc oholic (HCC) 03/20/2022 8:45 AM ENTRY LEVEL JAVA DEVELOPER Hypertension Portal (HCC) documented as of this encounter Visit Diagnoses Not on filedocumented in this encounter Care Teams Cinetechnician Relationship Specialty Start Date End Date Elsewhere, Pcp PCP - General Family Medicine 03/10/20 11/30/21 Ervin Schroeder MD Referring Provider Family Medicine 03/24/[address] [place] [address] documented as of this encounter
--- OUTSIDE RECORDS SUMMARY | 2022-02-12 20:33 | XMS_ITS | Encounter Summary ---
:1990 Author Organization [facility] Address [address] [place] [address] Care Team Providers Name Role Phone Elsewhere, Pcp Primary Care Provider Unavailable Encounter Details Date Type Department Care Team Description 06/30/2021 Hospital Encounter Department of Rut Molina Alcoholic Laboratory Magaly Lucas ([facility]) Medicine, Specialty P.A.-C., M.S . [facility], in [place], [address] [place] [address] [place], [place] [phone] (Work) [phone] Social History Tobacco Use Types Packs/Day Years [...] you attend gnosticist or Patient refused 2021 episcopalian services? Do [...] at Date Recorded Female 04/12/2021 7:39 PM OYSTER TONGER documented as of this encounter Medications at [...] upper GI endoscopy has been notified. ER TONGER documented in this encounter Plan of Treatment Upcoming Encounters Date Type Specialty Care Team Description Telemedicine Transplant 2 Appointment Radiology Matthew Jerome 2 Y M.B.B.SSuma, Lilian [address] [place] [phone] Appointment Gastroenterology and Adrianne, 2 Hepatology Yue Burciaga M.D. [address] [place] [phone] Virtual Visit Transplant Luischantell Matthew 2 Jennifer M.B.B.SSuma, Lilian [address] [place] [phone] Office Visit Gastroenterology and Queenie Matthew 2 Hepatology Elizabeth Rodriguez.B.B.SSuma, Lilian [address] [place] [phone] Appointment Radiology Matthew Jerome 2 Y M.B.B.SLilian Moise [address] [place] [phone] Hospital Gastroenterology and QueenieNewar Cirrhos is Alcoholic (HCC) 2 Encounter Hepatology Joshua RodriguezB.B.SLilian Moise [address] [place] [phone] Anesthesia Event Gastroenterology and Rl, 2 Hepatology Ervin Burgos M.D. [address] [place] [phone] Surgery Gastroenterology and Mousa, Matthew ESOPHAG OGASTRODUODENOSCOPY 2 Hepatology Tyrell Rodriguez M.D. [address] [place] [phone] Scheduled Procedures Name Priority Associated Diagnoses Date/Time ESOPHAGOGASTRODUODENOSCOPY Cirrhosis Alc oholic (HCC) 03/20/2022 8:45 AM OYSTER TONGER Hypertension Portal (HCC) documented as of this encounter Procedures Procedure Name Priority Date/Time Associated Comments Diagnosis PROTHROMBIN TIME Routine 06/30/2021 2:27 PM Cirrhosis Alcoholi c Results for this (PT), P OYSTER TONGER (HCC) procedure are i n the results section. documented in this encounter Results (ABNORMAL) Prothrombin Time (PT) (06/30/2021 2:27 PM OYSTER TONGER) [facility] gist Method Time Signature Prothrombin 26.7 (H) 9.4 - 12.5 06/30/2021 MKTO Time, P sec 3:02 PM OYSTER TONGER INR 2.3 0.9 - 1.1 06/30/2021 MKTO 3:02 PM OYSTER TONGER Comment: ----ADDITIONAL INFORMATION---- Standard intensity warfarin therapeutic range: 2.0 to 3.0 ?? High intensity warfarin therapeutic rang e: 2.5 to 3.5 Specimen Anatomical Collection Method Collection Time Receive d Time (Source) Location / / Volume Laterality Blood (Blood, 06/30/2021 2:27 PM 06/30/19 2:46 Venous) OYSTER TONGER PM OYSTER TONGER Magaly Molina P.A.-C., M.S. LAB BLOOD ADD-ON Performing Organization Address City/State/ZIP Code Phon e Number [facility]- [address] [place] [address] [place] [address] System [address] documented in this encounter Visit Diagnoses Diagnosis Cirrhosis Alcoholic (HCC) Cirrhosis Alcoholic (HCC) Cirrhosis Alcoholic (HCC) Hypertension Portal (HCC) documented in this encounter Additional Health Concerns Infection Onset Date Last Indicated Resolved Time COVID19 Pending 06/30/2021 06/30/2021 06/30/2021 10:43 PM OYSTER TONGER documented as of this encounter Care Teams Pharmacist Relationship Specialty Start Date End Date Elsewhere, Pcp PCP - General Family Medicine 03/10/20 11/30/21 Ervin Schroeder MD Referring Provider Family Medicine 03/24/[address] [place] [phone] documented as of this encounter
--- OUTSIDE RECORDS SUMMARY | 2022-02-12 20:33 | XMS_ITS | Encounter Summary ---
:1990 Author Organization [facility] Address [address] [place] [address] Care Team Providers Name Role Phone Elsewhere, Pcp Primary Care Provider Unavailable Reason for Visit Reason Comments Outpatient Infusion Fresh frozen plasma Encounter Details Date Type Department Care Team Description 07/02/2021 Infusion Department of Infusion Kerry Naranjo, Jt hrombocytopenia (HCC) (Primary Dx); Therapy in [place], CARPET CUTTER, C.N.P., Cirrhos is Alcoholic (HCC); [place] M.S.N. Splenomegaly Acquired; [address] [facility] [address] 1025 [facility] Hypertension Portal (HCC) [place] [address] [place], [place] [phone] Social History Tobacco Use Types Packs/Day [...] you attend sikhism or Patient refused 2021 worship services? Do you belong to any clubs or No 02/10/2022 organizations such as sikhism groups, unions, [email or web address] or athletic groups, or school groups? 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/2021 7:39 PM CASE FILLER documented as of this encounter Last Filed Vital Signs Vital Sign Reading Time Taken Comments Blood Pressure 95/53 07/02/2021 12:56 PM CASE FILLER Pulse 91 07/02/2021 12:56 PM CASE FILLER Temperature 38.2 ??C (100.8 ??F) 07/02/2021 12:56 PM CASE FILLER Respiratory Rate 18 07/02/2021 12:56 PM CASE FILLER Oxygen Saturation 95% 07/02/2021 12:56 PM CASE FILLER Inhaled Oxygen Concentration - - Weight - - Height - - Body Mass Index - - documented in this encounter Plan of Treatment Upcoming Encounters Date Type Specialty Care Team Description Telemedicine Transplant 2 Appointment Radiology Matthew Jerome 2 YVikBSumaSSuma, Lilian [address] [place] [phone] Appointment Gastroenterology and Adrianne, 2 Hepatology Yue Burciaga M.D. [address] [place] [phone] Virtual Visit Transplant Matthew Jerome 2 YTyrell M.D. [address] [place] [phone] Office Visit Gastroenterology and Matthew Jerome 2 Hepatology Tyrell Rodriguez M.D. [address] [place] [phone] Appointment Radiology LuisMatthew abdul 2 YTyrell M.D. [address] [place] [phone] [facility] Cirrhos is Alcoholic (HCC) 2 Encounter Hepatology Tyrell Rodriguez M.D. [address] [place] [phone] Anesthesia Event Gastroenterology and Rl, 2 Hepatology Ervin Burgos M.D. [address] [place] [phone] Surgery Gastroenterology and Matthew Jerome ESOPHAG OGASTRODUODENOSCOPY 2 Hepatology Tyrell Rodriguez M.D. [address] [place] [phone] Pending Results Name Type Priority Associated Diagnoses Date/Ti ok Prepare Fresh Blood Bank Routine Thrombocytopenia (HCC) 07/02/2021 10:14 AM Frozen Plasma : 2 Cirrhosis Alcoholic (HC C) CASE FILLER Units Scheduled Procedures Name Priority Associated Diagnoses Date/Time ESOPHAGOGASTRODUODENOSCOPY Cirrhosis Alc oholic (HCC) 03/20/2022 8:45 AM CASE FILLER Hypertension Portal (HCC) documented as of this encounter Procedures Procedure Name Priority Date/Time Associated Diagnosis Comme nts PROTHROMBIN TIME Routine 07/02/2021 1:22 Cirrhosis Alcoholic R esults for this (PT), P PM CASE FILLER (HCC) procedure are in Thrombocytopenia (HCC) the results Splenomegaly Acq uired section. Hypertension Portal (HCC) TRANSFUSE FRESH Routine 07/02/2021 11:59 Thrombocytopeni a (HCC) FROZEN PLASMA AM CASE FILLER Cirrhosis Alcoholic (HCC) TRANSFUSE FRESH Routine 07/02/2021 10:57 Thrombocytopeni a (HCC) FROZEN PLASMA AM CASE FILLER Cirrhosis Alcoholic (HCC) PREPARE FRESH Routine 07/02/2021 10:14 Thrombocytopeni a (HCC) FROZEN PLASMA AM CASE FILLER Cirrhosis Alcoholic (HCC) documented in this encounter Results (ABNORMAL) Prothrombin Time (PT) (07/02/2021 1:22 PM CASE FILLER) [facility] Method Time Signature Prothrombin 24.6 (H) 9.4 - 12.5 07/02/2021 MKTO Time, P sec 1:39 PM CASE FILLER INR 2.2 0.9 - 1.1 07/02/2021 MKTO 1:39 PM CASE FILLER Comment: ----ADDITIONAL INFORMATION---- Standard intensity warfarin therapeutic range: 2.0 to 3.0 ?? High intensity warfarin therapeutic rang e: 2.5 to 3.5 Specimen Anatomical Collection Method Collection Time Receive d Time (Source) Location / / Volume Laterality Blood (Blood, 07/02/2021 1:22 PM 07/03/19 1:31 Venous) CASE FILLER PM CASE FILLER Lowell Newsome APRNNLala., M.S.N. LAB BLOOD ADD-ON Performing Organization Address City/State/ZIP Code Phon e Number [facility]- [address] [place] [address] [place] [address] System [address] Transfuse Fresh Frozen Plasma :INR >2: Invasive proc scheduled; 180 mL/hr (07/02/2021 12:57 PM CASE FILLER) Katrin Newsome APRN.N.Frances, M.S.N. BLOOD TRANSFUSION ORDERABLES Transfuse Fresh Frozen Plasma :INR >2: Invasive proc scheduled; 180 mL/hr, 2 Units (07/02/2021 12:57 PM CASE FILLER) Kerry Naranjo APRN, C.N.P., M.S.N. BLOOD TRANSFUSION ORDERABLES Transfuse Fresh Frozen Plasma :INR >2: Invasive proc scheduled; 180 mL/hr (07/02/2021 11:50 AM CASE FILLER) Kerry Naranjo APRN, C.N.P., M.S.N. BLOOD TRANSFUSION [...] tablet 650 mg Given 07/02/2021 1:04 PM CASE FILLER 650 mg (TYLENOL) 650 mg, oral, Once as needed, other, blood products administration, Starting on Wed07/02/21 at 1013, For 1 dose documented in this encounter Care Teams Talent Development Director Relationship Specialty Start Date End Date Elsewhere, Pcp PCP - General Family Medicine 03/10/20 11/30/21 Ervin Schroeder MD Referring Provider Family Medicine 03/24/[address] [place] [address] documented as of this encounter
--- OUTSIDE RECORDS SUMMARY | 2022-02-12 20:33 | XMS_ITS | Encounter Summary ---
:1990 Author Organization [facility] Address [address] [place] [address] Care Team Providers Name Role Phone Elsewhere, Pcp Primary Care Provider Unavailable Encounter Details Date Type Department Care Team Description 06/30/2021 Clinical Communication Department of Kerry Naranjo Gastroenterology in [place], [place] C.N.P., M.S.N. [facility] [address]25 [place] [address] [place], [place] [phone] Social History Tobacco Use Types Packs/Day [...] you attend episcopalian or Patient refused 2021 taoism services? 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 - 07/01/2021 4:12 PM CST Noted. R UNION BUSINESS REPRESENTATIVE Telephone Encounter - Ellen Stevens R.N. - 07/01/2021 4:11 PM CST Please see message related to when pt is scheduled for FFP pre-EGD. Thanks, Ellen Stevens, RN, OCN R UNION BUSINESS REPRESENTATIVE Telephone Encounter - Ruth Jeter - 07/01/2021 3:48 PM CST Pt has been scheduled 07/02 @ 1000. Pt is aware. R UNION BUSINESS REPRESENTATIVE Telephone Encounter - Ellen Stevens RGabby - [...] their department. Thanks, Ellen Stevens RN, OCN R UNION BUSINESS REPRESENTATIVE Telephone Encounter - Kerry Naranjo APRN, C.N.P., M.S.N. - 07/01/2021 11:47 AM CST Signed pended orders for transfusion of 2 units FFP with protocol and post transfusion INR R UNION BUSINESS REPRESENTATIVE Telephone Encounter - Felicita Spicer L.P.N. - [...] had no further questions at this time. R UNION BUSINESS REPRESENTATIVE Telephone Encounter - Kerry Naranjo APRN, C.N.P., [...] the above above arrangements. Thank you, Kerry R UNION BUSINESS REPRESENTATIVE documented in this encounter Plan of Treatment Upcoming Encounters Date Type Specialty Care Team Description Telemedicine Transplant 2 Appointment Radiology Queenie Matthew 2 Tyrell Rodriguez M.D. [address] [place] [phone] Appointment Gastroenterology and Adrianne, 2 Hepatology Yue Burciaga M.D. [address] [place] [phone] Virtual Visit Transplant LuisMatthew abdul 2 Tyrell Rodriguez M.D. [address] [place] [phone] Office Visit Gastroenterology and Matthew Jerome 2 Hepatology Tyrell Rodriguez M.D. [address] [place] [phone] Appointment Radiology LuisNew abdular 2 YTyrell M.D. [address] [place] [phone] Hospital [facility] Matthew Cirrhos is Alcoholic (HCC) 2 Encounter Hepatology Tyrell Rodriguez M.D. [address] [place] [phone] Anesthesia Event Gastroenterology and Rl, 2 Hepatology Ervin Burgos M.D. [address] [place] [phone] Surgery [facility] [place] ESOPHAG OGASTRODUODENOSCOPY 2 Hepatology Tyrell Rodriguez M.D. [address] [place] [phone] Scheduled Procedures Name Priority Associated Diagnoses Date/Time ESOPHAGOGASTRODUODENOSCOPY Cirrhosis Alc oholic (HCC) 03/20/2022 8:45 AM LABOR UNION BUSINESS REPRESENTATIVE Hypertension Portal (HCC) documented as of this encounter Results (ABNORMAL) Prothrombin Time (PT) (07/02/2021 1:22 PM LABOR UNION BUSINESS REPRESENTATIVE) [facility] gist Method Time Signature Prothrombin 24.6 (H) 9.4 - 12.5 07/02/2021 MKTO Time, P sec 1:39 PM LABOR UNION BUSINESS REPRESENTATIVE INR 2.2 0.9 - 1.1 07/02/2021 MKTO 1:39 PM LABOR UNION BUSINESS REPRESENTATIVE Comment: ----ADDITIONAL INFORMATION---- Standard intensity warfarin therapeutic range: 2.0 to 3.0 ?? High intensity warfarin therapeutic rang e: 2.5 to 3.5 Specimen Anatomical Collection Method Collection Time Receive d Time (Source) Location / / Volume Laterality Blood (Blood, 07/02/2021 1:22 PM 07/03/19 1:31 Venous) LABOR UNION BUSINESS REPRESENTATIVE PM LABOR UNION BUSINESS REPRESENTATIVE Kerry Naranjo APRN, C.N.P., M.S.N. LAB BLOOD ADD-ON Performing Organization Address City/State/ZIP Code Phon e Number [facility]- [address] [place] [address] [place] [address] System in [place] [address] [place] [address] documented in this encounter Visit Diagnoses Diagnosis Cirrhosis Alcoholic (HCC) - Primary Thrombocytopenia (HCC) Splenomegaly Acquired Hypertension Portal (HCC) Cirrhosis Alcoholic (HCC) Cirrhosis Alcoholic (HCC) Hypertension Portal (HCC) documented in this encounter Additional Health Concerns Infection Onset Date Last Indicated Resolved Time COVID19 Pending 06/30/2021 06/30/2021 06/30/2021 10:43 PM LABOR UNION BUSINESS REPRESENTATIVE documented as of this encounter Care Teams Court Crier Relationship Specialty Start Date End Date Elsewhere, Pcp PCP - General Family Medicine 03/10/20 11/30/21 Ervin Schroeder MD Referring Provider Family Medicine 03/24/[address] [place] [address] documented as of this encounter
--- OUTSIDE RECORDS SUMMARY | 2022-02-12 20:33 | XMS_ITS | Encounter Summary ---
:1990 Author Organization [facility] Address [address] [place] [address] Care Team Providers Name Role Phone Elsewhere, Pcp Primary Care Provider Unavailable Encounter Details Date Type Department Care Team Description 06/30/2021 Lab Department of Kerry Gee Enc ounter For Screening Medicine in [facility], C.N.P., For Ot her Viral Diseases [facility] ([facility]) 10[address] [facility] 1025 [place] [address] [place], [place] [phone] (Wo rk) Social History Tobacco Use [...] you attend confucianist or Patient refused 2021 church services? 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 [address] [place] [phone] Appointment Gastroenterology and Adrianne, 2 Hepatology Yue Burciaga M.D. [address] [place] [phone] Virtual Visit Transplant Matthew Jerome 2 Tyrell Rodriguez M.D. [address] [place] [phone] Office Visit Gastroenterology and Matthew Jerome 2 Hepatology Tyrell Rodriguez M.D. [address] [place] [phone] Appointment Radiology [facility] 2 Tyrell Rodriguez M.D. [address] [place] [phone] Hospital Gastroenterology and [facility] Cirrhos is Alcoholic (HCC) 2 Encounter Hepatology Tyrell Rodriguez M.D. [address] [place] [phone] Anesthesia Event Gastroenterology and Rl, 2 Hepatology Ervin Burgos M.D. [address] [place] [phone] Surgery Gastroenterology and [facility] ESOPHAG OGASTRODUODENOSCOPY 2 Hepatology Tyrell Rodriguez M.D. [address] [place] [phone] Scheduled Procedures Name Priority Associated Diagnoses Date/Time ESOPHAGOGASTRODUODENOSCOPY Cirrhosis Alc oholic (HCC) 03/20/2022 8:45 AM FOOT PRESS OPERATOR Hypertension Portal (HCC) documented as of this encounter Procedures Procedure Name Priority Date/Time Associated Diagnosis Comme nts SARS CORONAVIRUS-2 Routine 06/30/2021 2:34 PM Encounter For Re sults for this RNA, V FOOT PRESS OPERATOR Screening For Other procedur e are in Viral Diseases the results (COVID-19) section. documented in this encounter Results SARS Coronavirus-2 RNA, V Asymptomatic (06/30/2021 2:34 PM FOOT PRESS OPERATOR) [facility] Method Time Signature SARS-CoV-2 Swab, 06/30/2021 MKTO Specimen Nasopharynx 10:42 PM Source FOOT PRESS OPERATOR SARS CoV-2 Undetected Undetected 06/30/2021 MKTO RNA, TMA 10:42 PM FOOT PRESS OPERATOR Comment: SARS-CoV-2 RNA absent. This result does not rule out COVID-19 in the patient, as the sensitivity of the test depends o n the timing of the specimen collection and the quality of the specim en. Result should be correlated with patient's history and clinical presentat ion. ----ADDITIONAL INFORMATION---- This molecular amplification test was pe rformed using the Aptima SARS-CoV-2 assay ([employer] on the FaceAlerta Sys tem under emergency use authorization (EUA) by the U.S. Food and Drug Administ ration. Fact sheets for this EUA assay can be fo und at the following links: For Healthcare Providers: https://www.[employer] a.gov/media/686768/download For Patients: https://www.fda.gov/media/ 778777/download Specimen Anatomical Collection Method Collection Time Receive d Time (Source) Location / / Volume Laterality Varies 06/30/2021 2:34 PM 5:12 (Nasopharynx) FOOT PRESS OPERATOR PM FOOT PRESS OPERATOR Kerry Naranjo APRN C.N.P., M.S.N. LAB MICROBIOLOGY - GENERAL ORDERABLES Performing Organization Address City/[facility] Phon e Number [facility]- [address] [place] [address] [place] [address] System [address] documented in this encounter Visit Diagnoses Diagnosis Encounter For Screening For Other Viral Diseases (COVID-19) Cirrhosis Alcoholic (HCC) Cirrhosis Alcoholic (HCC) Hypertension Portal (HCC) documented in this encounter Additional Health Concerns Infection Onset Date Last Indicated Resolved Time COVID19 Pending 06/30/2021 06/30/2021 06/30/2021 10:43 PM FOOT PRESS OPERATOR documented as of this encounter Care Teams Guest History Clerk Relationship Specialty Start Date End Date Elsewhere, Pcp PCP - General Family Medicine 03/10/20 11/30/21 Ervin Schroeder MD Referring Provider Family Medicine 03/24/[address] [place], [place] [phone] documented as of this encounter
--- OUTSIDE RECORDS SUMMARY | 2022-02-12 20:33 | XMS_ITS | Encounter Summary ---
:1990 Author Organization [facility] Address [address] [place] [address] Care Team Providers Name Role Phone Elsewhere, Pcp Primary Care Provider Unavailable Reason for Referral Appointment Request (Routine) - Closed Specialty Diagnoses / Procedures Referred By Contact Refer red To Contact Diagnoses Cirrhosis Alcoholic (HCC) Ascites Anemia Macrocytic Thrombocytopenia (HCC) Deficiency Coagulation Acquired (HCC) Kerry Naranjo APRN, Procedures Prothrombin Time (PT) C.N.Shanita., M.S.N. [address] [place] [phone] Referral ID Status Reason Start Date Expiration Date Visits Requ ested Visits Authorized [id number] Closed 07/07/2021 07/07/2022 1 RUCTIONAL FACILITATOR Encounter Details Date Type Department Care Team Description 07/04/2021 Clinical Communication Department of Felicita Spicer Gastroenterology in [place], [place] [phone] 10[address] [place] [address] Social History Tobacco Use Types Packs/Day Years [...] you attend taoist or Patient refused 2021 cheondoism services? 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 - 2021 11:19 AM INSTRUCTIONAL FACILITATOR As stated below by Kerry Naranjo, the following is the plan for this patient and upcoming EGD. I have ordered Vitamin K 5 mg X 7 days, to take orally. Then follow up by repeat PT/INR on the 8th day. Please call pt and ask to get the lab at [facility] in [place]; this allows access to results. Past attempts [...] it was okay to leave detailed message. Manufacturing Weaver called to again discuss plan with patient and left a detailed message as outlined above. Informed her to expect a call from scheduling to set up the lab appointment. RUCTIONAL FACILITATOR Telephone Encounter - Felicita Spicer L.P.N. - [...] had no further questions at this time. RUCTIONAL FACILITATOR Telephone Encounter - Kerry Naranjo APRN, C.N.PSuma, M.S.N. - 07/08/2021 12:53 PM CST Her upper GI endoscopy is screening for the presence of varices. This is non urgent at this time as to the best of my knowledge she is not currently having any GI bleeding related to the presence of varices. August 12 would be okay Kerry Naranjo APRN, C.N.P., M.S.N. RUCTIONAL FACILITATOR Telephone Encounter - Mihaela Dudley - 07/08/2021 [...] answer all her questions before the procedure. RUCTIONAL FACILITATOR Telephone Encounter - Felicita Spicer L.P.N. - 07/08/2021 10:16 AM INSTRUCTIONAL FACILITATOR Patient returned call and it was discussed [...] also report that she is currently at [facility] and inquired if [facility] had beds available. Informed her that I am unaware of hospital bed availability. She had no further questions at this time. RUCTIONAL FACILITATOR Telephone Encounter - Felicita Spicer L.P.N. - [...] patient can pickup closer to procedure date. RUCTIONAL FACILITATOR Telephone Encounter - Kerry Naranjo APRN C.N.P., M.S.N. - 07/07/2021 1:43 PM CST I have ordered Vitamin K 5 mg X 7 days, to take orally. Then follow up by repeat PT/INR on the 8th day. Please call pt and ask to get the lab at [facility] in [place]; this allows access to results. Past attempts to get lab work from outside PCP has failed. She should start to take the Vitamin K 10 days prior to the r/s EGD. I have also ordered the EGD/MAC, however the last EGD should of been put back in the que and not cancelled. Thank you, Kerry RUCTIONAL FACILITATOR Telephone Encounter - Felicita Spicer L.P.N. - 07/04/2021 9:00 AM CST Manufacturing Weaver received a call this morning from endoscopy [...] the patient she does have several questions, proposal lead writer informed her it may not be a bad idea to keep theappointment even if she has not had the EGD as this will allow her to ask her questions and get some answers. Manufacturing Weaver informed the patient that I would follow up regarding the plan moving forward as I see recommendations documented in the chart, however I do not see any specific orders. Informed her that Kerry is out of office today and should be back on Wednesday. RUCTIONAL FACILITATOR documented in this encounter Plan of Treatment Upcoming Encounters Date Type Specialty Care Team Description Telemedicine Transplant 2 Appointment Radiology Mousa, Matthew 2 YTyrell M.D. [address] [place] [phone] Appointment Gastroenterology demian Silver 2 Hepatology Yue Burciaga M.D. [address] [place] [address] Virtual Visit Transplant Matthew Jerome 2 YTyrell M.D. [address] [place] [phone] Office Visit Gastroenterology and [place] 2 Hepatology Tyrell Rodriguez M.D. [address] [place] [phone] Appointment Radiology LuisMatthew abdul 2 YTyrell M.D. [address] [place] [phone] Hospital Gastroenterology and [place] Matthew Cirrhos is Alcoholic (HCC) 2 Encounter Hepatology Tyrell Rodriguez M.D. [address] [place] [phone] Anesthesia Event Gastroenterology and Rl, 2 Hepatology Ervin Burgos M.D. [address] [place] [phone] Surgery Gastroenterology and Matthew Jerome ESOPHAG OGASTRODUODENOSCOPY 2 Hepatology Tyrell Rodriguez, Lilian [address] [place] [phone] Scheduled Procedures Name Priority Associated Diagnoses Date/Time ESOPHAGOGASTRODUODENOSCOPY Cirrhosis Alc oholic (HCC) 03/20/2022 8:45 AM INSTRUCTIONAL FACILITATOR Hypertension Portal (HCC) documented as of this encounter Results (ABNORMAL) Prothrombin Time (PT) (08/28/2021 5:01 PM CDT) [facility] gist Method Time Signature Prothrombin 25.9 (H) [...] PM 08/29/19 6:01 Venous) CDT PM CDT Katrin Newsome APRN.NLala., M.S.N. LAB BLOOD ADD-ON Performing Organization Address City/State/ZIP Code Phon e Number [facility]- [address], [place] [address] [place] [address] System in [place] [address] [facility] documented in this encounter Visit Diagnoses Diagnosis Cirrhosis Alcoholic (HCC) - Primary Ascites Anemia Macrocytic Thrombocytopenia (HCC) Deficiency Coagulation Acquired (HCC) Cirrhosis Alcoholic (HCC) Cirrhosis Alcoholic (HCC) Hypertension Portal (HCC) documented in this encounter Additional Health Concerns Infection Onset Date Last Indicated Resolved Time COVID19 Pending 07/06/2021 07/06/2021 07/06/2021 11:34 AM INSTRUCTIONAL FACILITATOR COVID19 Pending 07/25/2021 07/25/2021 07/25/2021 10:07 PM CDT documented as of this encounter Care Teams Correctional Probation Officer Relationship Specialty Start Date End Date Elsewhere, Pcp PCP - General Family Medicine 03/10/20 11/30/21 Ervin Schroeder MD Referring Provider Family Medicine 11/22/[address] [place] [phone] documented as of this encounter
--- OUTSIDE RECORDS SUMMARY | 2022-02-12 20:33 | XMS_ITS | Encounter Summary ---
:1990 Author Organization [facility] Address [address] [place] [address] Care Team Providers Name Role Phone Elsewhere, Pcp Primary Care Provider Unavailable Encounter Details Date Type Department Care Team Description 05/06/2021 Clinical Communication Department of Kerry Naranjo Gastroenterology in [place], [place] C.N.P., M.S.N. 1025 [facility] 1025 [place] [address] [place], [place] [phone] Social History Tobacco Use Types Packs/Day [...] you attend lutheran or Patient refused 2021 confucianism services? 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 [address] [place] [phone] Appointment Gastroenterology and Adrianne, 2 Hepatology Yue Burciaga M.D. [address] [place] [phone] Virtual Visit Transplant Matthew Jerome 2, M.B.B.S., M.D. [address] [place] [phone] Office Visit Gastroenterology and Matthew Jerome 2 Hepatology Tyrell Rodriguez M.D. [address] [place] [phone] Appointment Radiology Matthew Jerome 2 YTyrell M.D. [address] [place] [address] [phone] Hospital Gastroenterology and [facility] Cirrhos is Alcoholic (HCC) 2 Encounter Hepatology Tyrell Rodriguez M.D. [address] [place] [phone] Anesthesia Event Gastroenterology and Rl, 2 Hepatology Ervin Burgos M.D. [address] [place] [phone] Surgery Gastroenterology and [facility] ESOPHAG OGASTRODUODENOSCOPY 2 Hepatology Tyrell Rodriguez M.D. [address] [place] [phone] Scheduled Procedures Name Priority Associated Diagnoses Date/Time ESOPHAGOGASTRODUODENOSCOPY Cirrhosis Alc oholic (HCC) 03/20/2022 8:45 AM BREEDING MANAGER Hypertension Portal (HCC) documented as of this encounter Visit Diagnoses Not on filedocumented in this encounter Care Teams Helicopter Specialist Relationship Specialty Start Date End Date Elsewhere, Pcp PCP - General Family Medicine 03/10/20 11/30/21 Ervin Schroeder MD Referring Provider Family Medicine 03/24/[address] [place] [address] documented as of this encounter
--- OUTSIDE RECORDS SUMMARY | 2022-02-12 20:33 | XMS_ITS | Encounter Summary ---
:1990 Author Organization [facility] Address [address] [place] [address] Care Team Providers Name Role Phone Elsewhere, Pcp Primary Care Provider Unavailable Reason for Visit Auth/Cert Specialty Diagnoses / Procedures Referred By Contact Refer red To Contact Diagnoses Cirrhosis Alcoholic (HCC) Cirrhosis Alcoholic (HCC) [K70.30] Procedures KS EGD TRANSORAL DX ESOPHAGOGASTRODUODENOSCOPY Referral ID Status Reason Start Date Expiration Date Visits Requ ested Visits Authorized [id number] 1 1 Encounter Details Date Type Department Care Team Description 07/02/2021 Hospital Encounter Department of David Fish, Gastroenterology in M.B.B.[address] [place] [phone] Social History Tobacco Use Types Packs/Day Years [...] you attend hindu or Patient refused 2021 hindu services? 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 [address] [place] [phone] Appointment Gastroenterology edmian Silver, 2 Hepatology Yue Burciaga M.D. [address] [place] [phone] Virtual Visit Transplant LuisNew abdular 2 YTyrell M.D. [address] [place] [phone] Office Visit Gastroenterology and LuisNew abdular 2 Hepatology Tyrell Rodrigeuz M.D. [address] [place] [phone] Appointment Radiology LuisNew abdular 2 YTyrell M.D. [address] [place] [phone] Hospital Gastroenterology and Matthew Jerome Cirrhos is Alcoholic (HCC) 2 Encounter Hepatology Tyrell Rodriguez M.D. [address] [place] [phone] Anesthesia Event Gastroenterology and Rl, 2 Hepatology Ervin Burgos M.D. [address] [place] [phone] Surgery Gastroenterology and LuisNew abdular ESOPHAG OGASTRODUODENOSCOPY 2 Hepatology Tyrell Rodriguez M.D. [address] [place] [address] [place] [phone] Scheduled Procedures Name Priority Associated Diagnoses Date/Time ESOPHAGOGASTRODUODENOSCOPY Cirrhosis Alc oholic (HCC) 03/20/2022 8:45 AM ATTENDING PHYSICIAN Hypertension Portal (HCC) documented as of this encounter Visit Diagnoses Diagnosis Cirrhosis Alcoholic (HCC) - Primary Cirrhosis Alcoholic (HCC) Cirrhosis Alcoholic (HCC) Hypertension Portal (HCC) documented in this encounter Admitting Diagnoses Diagnosis Cirrhosis Alcoholic (HCC) documented in this encounter Care Teams Area Intelligence Technician Relationship Specialty Start Date End Date Elsewhere, Pcp PCP - General Family Medicine 03/10/20 11/30/21 Ervin Schroeder MD Referring Provider Family Medicine 03/24/[address] [place] [address] documented as of this encounter
--- OUTSIDE RECORDS SUMMARY | 2022-02-12 20:33 | XMS_ITS | Encounter Summary ---
:1990 Author Organization [facility] Address [address] [place] [address] Care Team Providers Name Role Phone Elsewhere, Pcp Primary Care Provider Unavailable Reason for Visit Reason Comments Fever Encounter Details Date Type Department Care Team Description 07/06/2021 Nurse Triage Department of [facility] Arabella Rosa, RSumaNSuma Fever Medicine in [place], [address] [place] [address] [address] [phone] [place] [address] Social History Tobacco Use Types [...] you attend scientologist or Patient refused 2021 samaritan services? 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 - 07/06/2021 2:57 AM CST Chief Complaint / Reason for Call Patient is a 30 y.o. female calling regarding Fever. Assessment Concern: 100.4 fever with stage 4 liver cirrhosis diagnosis. No other new symptoms. Present for: [place] somewhat feverish over past 24 hours, but more noticeable in past 2 hours. Home cares tried: None Calling to request: Advice The recommended disposition is Information or Advice Only Call. .Transferred for [facility] specialty. Patient unable to take OTCs and is unsure of urgency of fever with medical condition. [facility] documented in this encounter Plan of Treatment Upcoming Encounters Date Type Specialty Care Team Description Telemedicine Transplant 2 Appointment Radiology Matthew Jerome 2 YTyrell M.D. [address] [place] [phone] Appointment Gastroenterology demian Silver, 2 Hepatology Yue Burciaga M.D. [address] [place] [address] [place] [phone] Virtual Visit Transplant Matthew Jerome 2 Tyrell Rodriguez, Lilian [address] [place] [phone] Office Visit Gastroenterology and Matthew Jerome 2 Hepatology Tyrell Rodriguez M.D. [address] [place] [phone] Appointment Radiology LuisMatthew adbul 2 Tyrell Rodriguez M.D. [address] [place] [phone] [facility] Gastroenterology and Matthew Jerome Cirrhos is Alcoholic (HCC) 2 Encounter Hepatology Tyrell Rodriguez M.D. [address] [place] [phone] Anesthesia Event Gastroenterology and Rl, 2 Hepatology Ervin Burgos M.D. [address] [place] [phone] Surgery Gastroenterology and Matthew Jerome ESOPHAG OGASTRODUODENOSCOPY 2 Hepatology Tyrell Rodriguez, Lilian [address] [place] [phone] Scheduled Procedures Name Priority Associated Diagnoses Date/Time ESOPHAGOGASTRODUODENOSCOPY Cirrhosis Alc oholic (HCC) 03/20/2022 8:45 AM DIRECTOR HOME HEALTH Hypertension Portal (HCC) documented as of this encounter Visit Diagnoses Not on filedocumented in this encounter Care Teams Equip Tech Relationship Specialty Start Date End Date Elsewhere, Pcp PCP - General Family Medicine 03/10/20 11/30/21 Ervin Schroeder MD Referring Provider Family Medicine 03/24/[address] [place] [address] documented as of this encounter
--- OUTSIDE RECORDS SUMMARY | 2022-02-12 20:33 | XMS_ITS | Encounter Summary ---
:1990 Author Organization [facility] Address [address] [place] [address] Care Team Providers Name Role Phone Elsewhere, Pcp Primary Care Provider Unavailable Encounter Details Date Type Department Care Team Description 07/02/2021 Documentation Department of Gastroenterology Myke Fish, in [place], [facility] joe LewisB.B.S 10[address] [facility] [address] [place] [phone] [place], [place] [phone] Social History Tobacco Use Types Packs/Day [...] you attend methodist or Patient refused 2021 catholic services? 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 H ASSEMBLER BATTERY documented in this encounter Plan of Treatment Upcoming Encounters Date Type Specialty Care Team Description Telemedicine Transplant 2 Appointment Radiology Matthew Jerome 2 Y, VikBSumaSSumaLilian [address] [place] [phone] Appointment Gastroenterology and Adrianne, 2 Hepatology Yue Burciaga M.D. [address] [place] [phone] Virtual Visit Transplant Matthew Jerome 2 Joshua RodriguezBSumaBLilian Bedolla [address] [place] [phone] Office Visit Gastroenterology and Matthew Jerome 2 Hepatology Tyrell Rodriguez M.D. [address] [place] [phone] Appointment Radiology Matthew Jerome 2 Joshua RodriguezB.BLilian Bedolla [address] [place] [phone] Hospital Gastroenterology and Matthew Jerome Cirrhos is Alcoholic (HCC) 2 Encounter Hepatology Joshua RodriguezBSumaBLilian Bedolla [address] [place] [phone] Anesthesia Event Gastroenterology and Rl, 2 Hepatology Ervin Burgos M.D. [address] [place] [phone] Surgery Gastroenterology and Luischantell Matthew ESOPHAG OGASTRODUODENOSCOPY 2 Hepatology Joshua RodriguezB.BLilian Bedolla [address] [place] [phone] Scheduled Procedures Name Priority Associated Diagnoses Date/Time ESOPHAGOGASTRODUODENOSCOPY Cirrhosis Alc oholic (HCC) 03/20/2022 8:45 AM BENCH ASSEMBLER BATTERY Hypertension Portal (HCC) documented as of this encounter Visit Diagnoses Not on filedocumented in this encounter Care Teams Propellant Assembler Relationship Specialty Start Date End Date Elsewhere, Pcp PCP - General Family Medicine 03/10/20 11/30/21 Ervin Schroeder MD Referring Provider Family Medicine 03/24/[address] [place] [address] documented as of this encounter
--- OUTSIDE RECORDS SUMMARY | 2022-02-12 20:33 | XMS_ITS | Encounter Summary ---
:1990 Author Organization [facility] Address [address] [place] [address] Care Team Providers Name Role Phone Elsewhere, Pcp Primary Care Provider Unavailable Encounter Details Date Type Department Care Team Description 07/06/2021 Orders Only Department of Gastroenterology Jennifer Fish, in [place], [facility] M.B.B.S. 1025 [facility] 1025 [place] [address] [place], [place] [phone] (Wo rk) Social History Tobacco Use [...] you attend protestant or Patient refused 2021 jain services? Do [...] slept in a senior care (including now)? 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 [address] [place] [phone] Virtual Visit Transplant Matthew Jerome 2 YJoshuaBSumaBLilian Bedolla [address] [place] [phone] Office Visit Gastroenterology and Matthew Jerome 2 Hepatology Vik RodriguezBLilian Bedolla [address] [place] [address] [phone] Appointment Radiology aMtthew Jerome 2 YTyrell M.D. [address] [place] [phone] Hospital Gastroenterology and Matthew Jerome Cirrhos is Alcoholic (HCC) 2 Encounter Hepatology Tyrell Rodriguez M.D. [address] [place] [phone] Anesthesia Event Gastroenterology and Rl, 2 Hepatology Ervin Burgos M.D. [address] [place] [phone] Surgery Gastroenterology and Inchantell Matthew ESOPHAG OGASTRODUODENOSCOPY 2 Hepatology Tyrell Rodriguez M.D. [address] [place] [phone] Scheduled Procedures Name Priority Associated Diagnoses Date/Time ESOPHAGOGASTRODUODENOSCOPY Cirrhosis Alc oholic (HCC) 03/20/2022 8:45 AM FRUIT FARMER Hypertension Portal (HCC) documented as of this encounter Visit Diagnoses Not on filedocumented in this encounter Additional Health Concerns Infection Onset Date Last Indicated Resolved Time COVID19 Pending 07/06/2021 07/06/2021 07/06/2021 11:34 AM FRUIT FARMER documented as of this encounter Care Teams Fish Farm Manager Relationship Specialty Start Date End Date Elsewhere, Pcp PCP - General Family Medicine 03/10/20 11/30/21 Ervin Schroeder MD Referring Provider Family Medicine 03/24/[address] [place] [address] documented as of this encounter
--- OUTSIDE RECORDS SUMMARY | 2022-02-12 20:33 | XMS_ITS | Encounter Summary ---
:1990 Author Organization [facility] Address [address] [place] [address] Care Team Providers Name Role Phone Elsewhere, Pcp Primary Care Provider Unavailable Encounter Details Date Type Department Care Team Description 06/24/2021 Lab Department of [facility] Sera Morgan, En counter For Medicine in [place], P.A.-C. Preprocedural Laboratory [address] Examination (COVID-19) 1025 [place] [address] [place] [address] [phone] Social History Tobacco Use Types Packs/Day Years [...] you attend episcopal or Patient refused 2021 jehovah's witness services? 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 [address] [place] [phone] Virtual Visit Transplant LuisNew abdular 2 Tyrell Rodriguez M.D. [address] [place] [phone] Office Visit Gastroenterology and LuisNew abdular 2 Hepatology Tyrell Rodriguez M.D. [address] [place] [phone] Appointment Radiology [facility] 2 Tyrell Rodriguez M.D. [address] [place] [phone] Hospital Gastroenterology and [facility] Cirrhos is Alcoholic (HCC) 2 Encounter Hepatology Tyrell Rodriguez M.D. [address] [place] [phone] Anesthesia Event Gastroenterology and Rl, 2 Hepatology Ervin Burgos M.D. [address] [place] [phone] Surgery Gastroenterology and [facility] ESOPHAG OGASTRODUODENOSCOPY 2 Hepatology Tyrell Rodriguez M.D. [address] [place] [phone] Scheduled Procedures Name Priority Associated Diagnoses Date/Time ESOPHAGOGASTRODUODENOSCOPY Cirrhosis Alc oholic (HCC) 03/20/2022 8:45 AM ELECTRICAL TESTS SUPERVISOR Hypertension Portal (HCC) documented as of this encounter Procedures Procedure Name Priority Date/Time Associated Diagnosis Comme nts SARS CORONAVIRUS-2 Routine 06/24/2021 3:50 PM Encounter For Re sults for this RNA, V ELECTRICAL TESTS SUPERVISOR Preprocedural procedure are in Laboratory Examination the r esults (COVID-19) section. documented in this encounter Results SARS Coronavirus-2 RNA, V Asymptomatic (06/24/2021 3:50 PM ELECTRICAL TESTS SUPERVISOR) [facility] Method Time Signature SARS-CoV-2 Swab, 06/24/2021 MKTO Specimen Nasopharynx 10:05 PM Source ELECTRICAL TESTS SUPERVISOR SARS CoV-2 Undetected Undetected 06/24/2021 MKTO RNA, TMA 10:05 PM ELECTRICAL TESTS SUPERVISOR Comment: SARS-CoV-2 RNA absent. This result does not rule out COVID-19 in the patient, as the sensitivity of the test depends o n the timing of the specimen collection and the quality of the specim en. Result should be correlated with patient's history and clinical presentat ion. ----ADDITIONAL INFORMATION---- This molecular amplification test was pe rformed using the Aptima SARS-CoV-2 assay ([employer] on the [employer] tem under emergency use authorization (EUA) by the U.S. Food and Drug Administ ration. Fact sheets for this EUA assay can be fo und at the following links: For Healthcare Providers: https://www.Oportunista a.gov/media/954612/download For Patients: https://www.fda.gov/media/ 143246/download Specimen Anatomical Collection Method Collection Time Receive d Time (Source) Location / / Volume Laterality Varies 06/24/2021 3:50 PM 5:05 (Nasopharynx) ELECTRICAL TESTS SUPERVISOR PM ELECTRICAL TESTS SUPERVISOR Sera Morgan P.A.-C. LAB MICROBIOLOGY - GENERAL O JOSE Performing Organization Address City/State/ZIP Code Phon e Number [facility]- [address] [place] [phone] [place] [address] [place] [address] System [address] documented in this encounter Visit Diagnoses Diagnosis Encounter For Preprocedural Laboratory E xamination (COVID-19) Cirrhosis Alcoholic (HCC) Cirrhosis Alcoholic (HCC) Hypertension Portal (HCC) documented in this encounter Care Teams Restaurant Greeter Relationship Specialty Start Date End Date Elsewhere, Pcp PCP - General Family Medicine 03/10/20 11/30/21 Ervin Schroeder MD Referring Provider Family Medicine 03/24/21[address] [facility] [place] [address] documented as of this encounter
--- OUTSIDE RECORDS SUMMARY | 2022-02-12 20:33 | XMS_ITS | Encounter Summary ---
:1990 Author Organization [facility] Address [address] [place] [address] Care Team Providers Name Role Phone Elsewhere, Pcp Primary Care Provider Unavailable Encounter Details Date Type Department Care Team Description 07/15/2021 Clinical Communication Department of Felicita Spicer Gastroenterology in [place], [place] [phone] [place] [address] ([facility]) [place] [address] Social History Tobacco Use Types Packs/Day [...] you attend confucianist or Patient refused 2021 rastafarian services? 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 Sas Developer Analyst informed her that we were aware of the labs from outside facilities and that health underwriter had asked Kerry to review these outside labs last week and had not heard back regarding any recommendations. Informed her I would follow up with Kerry and get back to her. Sas Developer Analyst discussed patient with Kerry Naranjo NP. Since patient is reported feeling more tired and weak lately the provider would like to repeat some labs. Provider requests patient has these completed at [facility] so that we are able to [...] best that they are done at a Reading Facility so that Kerry can be alerted [...] shedid not received a blood transfusion at [facility]. Informed her that once the lab results were back Kerry would be able to best make a plan of care for her. Informed her she should keep her appointment with Kerry on Friday 07/21. documented in this encounter Plan of Treatment Upcoming Encounters Date Type Specialty Care Team Description Telemedicine Transplant 2 Appointment Radiology Matthew Jerome 2 Tyrell Rodriguez M.D. [address] [place] [phone] Appointment Gastroenterology and Adrianne, 2 Hepatology Yue Burciaga M.D. [address] [place] [phone] Virtual Visit Transplant Matthew Jerome 2 Tyrell Rodriguez M.D. [address] [place] [phone] Office Visit Gastroenterology and Matthew Jerome 2 Hepatology Vik RodriguezBLilian Bedolla [address] [place] [phone] Appointment Radiology Matthew Jerome 2 YVikBLilian Bedolla [address] [place] [phone] Hospital Gastroenterology and [facility] Cirrhos is Alcoholic (HCC) 2 Encounter Hepatology Tyrell Rodriguez M.D. [address] [place] [phone] Anesthesia Event Gastroenterology and Rl, 2 Hepatology Ervin Burgos M.D. [address] [place] [phone] Surgery Gastroenterology and [facility] ESOPHAG OGASTRODUODENOSCOPY 2 Hepatology Tyrell Rodriguez M.D. [address] [place] [phone] Scheduled Procedures Name Priority Associated Diagnoses Date/Time ESOPHAGOGASTRODUODENOSCOPY Cirrhosis Alc oholic (HCC) 03/20/2022 8:45 AM DOMESTIC CLEANER Hypertension Portal (HCC) documented as of this encounter Results (ABNORMAL) Hepatic Function Panel (07/15/2021 10:49 AM CDT) [facility] Method Time Signature Bilirubin, Total, P [...] Organization Address City/State/ZIP Code Phon e Number [facility]- [address] [place] [address] [place] [address] System in [place] [address] Basic Metabolic Panel (07/15/2021 10:49 [...] CDT eGFR-Black/Afric >90 >=60 07/15/2021 [place] an [place] mL/min/BSA 1:52 PM CDT Comment: ----ADDITIONAL INFORMATION---- [...] e Number [facility]- [address] [place] [address] [place] [address] System in [place] [address] [facility] (ABNORMAL) CBC with Differential, Blood (07/15/2021 10:49 AM CDT) [facility] Method Time Signature Hemoglobin 8.2 (L) [...] Organization Address City/State/ZIP Code Phon e Number [place] [address] [place] [address] [facility] [address] [place] [address] System in [address] documented in this encounter Visit Diagnoses Diagnosis Cirrhosis Alcoholic (HCC) - Primary Cirrhosis Alcoholic (HCC) Cirrhosis Alcoholic (HCC) Hypertension Portal (HCC) documented in this encounter Additional Health Concerns Infection Onset Date Last Indicated Resolved Time COVID19 Pending 07/25/2021 07/25/2021 07/25/2021 10:07 PM CDT documented as of this encounter Care Teams Nib Inspector Relationship Specialty Start Date End Date Elsewhere, Pcp PCP - General Family Medicine 03/10/20 11/30/21 Ervin Schroeder MD Referring Provider Family Medicine 03/24/[address] [place] [address] documented as of this encounter
--- OUTSIDE RECORDS SUMMARY | 2022-02-12 20:33 | XMS_ITS | Encounter Summary ---
:1990 Author Organization [facility] Address [address] [place] [address] Care Team Providers Name Role Phone Elsewhere, Pcp Primary Care Provider Unavailable Encounter Details Date Type Department Care Team Description 06/26/2021 Orders Only Department of [place], Cirrhosis Alco holic Gastroenterology in [facility], ([facility]) (P rimary Dx) [place], [place] P.Jim, M.S. [address] [facility] [address] [place] [address] [place], [place] [phone] Social History Tobacco Use Types Packs/Day [...] you attend restoration or Patient refused 2021 protestant services? 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 [address] [place] [phone] Virtual Visit Transplant LuischantellMatthew 2 YTyrell M.D. [address] [place] [phone] Office Visit Gastroenterology and LuisNew abdular 2 Hepatology Tyrell Rodriguez M.D. [address] [place] [phone] Appointment Radiology [facility] 2 Tyrell Rodriguez M.D. [address] [place] [phone] Hospital Gastroenterology and [facility] Cirrhos is Alcoholic (HCC) 2 Encounter Hepatology Tyrell Rodriguez M.D. [address] [place] [phone] Anesthesia Event Gastroenterology and Rl, 2 Hepatology Ervin Burgos M.D. [address] [place] [phone] Surgery Gastroenterology and [facility] ESOPHAG OGASTRODUODENOSCOPY 2 Hepatology Tyrell Rodriguez M.D. [address] [place] [phone] Scheduled Procedures Name Priority Associated Diagnoses Date/Time ESOPHAGOGASTRODUODENOSCOPY Cirrhosis Alc oholic (HCC) 03/20/2022 8:45 AM PAPER COATING SUPERVISOR Hypertension Portal (HCC) documented as of this encounter Results (ABNORMAL) Prothrombin Time (PT) (06/30/2021 2:27 PM PAPER COATING SUPERVISOR) [facility] Method Time Signature Prothrombin 26.7 (H) 9.4 - 12.5 06/30/2021 MKTO Time, P sec 3:02 PM PAPER COATING SUPERVISOR INR 2.3 0.9 - 1.1 06/30/2021 MKTO 3:02 PM PAPER COATING SUPERVISOR Comment: ----ADDITIONAL INFORMATION---- Standard intensity warfarin therapeutic range: 2.0 to 3.0 ?? High intensity warfarin therapeutic rang e: 2.5 to 3.5 Specimen Anatomical Collection Method Collection Time Receive d Time (Source) Location / / Volume Laterality Blood (Blood, 06/30/2021 2:27 PM 06/30/19 2:46 Venous) P[employer]ER [employer]ATING SUPERVISOR PM PAPER COATING SUPERVISOR Magaly Molina P.A.-C. M.S. LAB BLOOD ADD-ON Performing Organization Address City/State/ZIP Code Phon e Number [facility]- [address] [place] [phone] [place] [address] [place] [address] System in [place] [address] [facility] documented in this encounter Visit Diagnoses Diagnosis Cirrhosis Alcoholic (HCC) - Primary Cirrhosis Alcoholic (HCC) Cirrhosis Alcoholic (HCC) Hypertension Portal (HCC) documented in this encounter Care Teams Flavoring Oil Filterer Relationship Specialty Start Date End Date Elsewhere, Pcp PCP - General Family Medicine 03/10/20 11/30/21 Ervin Schroeder MD Referring Provider Family Medicine 03/24/[address] [place] [address] documented as of this encounter
--- OUTSIDE RECORDS SUMMARY | 2022-02-12 20:33 | XMS_ITS | Encounter Summary ---
:1990 Author Organization [facility] Address [address] [place] [address] Care Team Providers Name Role Phone Elsewhere, Pcp Primary Care Provider Unavailable Reason for Visit Reason Comments Fever Fever during noc 100.4, Dr. Fish recommending eval for labs due to cirrhosis. Encounter Details Date Type Department Care Team Description 07/06/2021 Emergency [facility] Juan Dang Fever Of Unknown Origin Martin Holloway M.D. (Primary Dx) Emergency Department [address] [place] [phone] Social History Tobacco Use Types Packs/Day Years [...] you attend jew or Patient refused 2021 adventism services? Do you belong to any clubs or No 02/10/2022 organizations such as jew groups, unions, fraTriond or athletic groups, or school groups? 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/2021 7:39 PM FINANCE MGR documented as of this encounter Last Filed Vital Signs Vital Sign Reading Time Taken Comments Blood Pressure 95/50 07/06/2021 1:30 PM FINANCE MGR Pulse 87 07/06/2021 1:45 PM FINANCE MGR Temperature 37.1 ??C (98.8 ??F) 07/06/2021 1:45 PM FINANCE MGR Respiratory Rate 15 07/06/2021 1:45 PM FINANCE MGR Oxygen Saturation 98% 07/06/2021 1:45 PM FINANCE MGR Inhaled Oxygen Concentration - - Weight 55.1 kg (121 lb 7.6 oz) 07/06/2021 10:41 AM FINANCE MGR Height 157.5 cm (5' 2) 07/06/2021 10:41 AM FINANCE MGR Body Mass Index 22.22 07/06/2021 10:41 AM FINANCE MGR documented in this encounter Discharge Instructions Discharge Juan Forrester M.D. - 07/06/2021 1:[address] PM CST As per Dr. Fish you may take Tylenol as needed for pain, please limit to less than 2,000 mg a day Return to ER if symptoms persist, worsen, or any concerns Please follow all verbal instructions given to you Please follow-up with your primary care doctor or manager of training Please read all attached documents at discharge It was a pleasure taking care of you today. We hope you feel better soon NCE MGR documented in this encounter Medications at Time [...] alcoholic liver cirrhosis referred to ED by manager of training for subjective fever. Patient states she felt [...] Negative Bilirubin Moderate (*) pH 7.0 Specific Villanova 1.020 Urobilinogen 1.0 White Blood Cells None [...] PCR Undetected Respiratory Syncytial Virus, PCR Undetected [id number], PCR Undetected Specimen Source Swab, Nasopharynx BACTERIA / INES CULTURE, BLOOD Narrative: Specimen Information: Specimen ID: [id number] Specimen Source: Blood, Peripheral Draw Specimen Comment: Specimen Source Site: Blood Specimen Collection Start Date: 07/06/2021 11:15 AM Specimen Received Date: 07/06/2021 11:30 AM Specimen ID: [id number] Specimen Source: Blood, Peripheral Draw Specimen Comment: Specimen Source Site: Blood Specimen Collection Start Date: 07/06/2021 11:15 AM Specimen Received Date: 07/06/2021 11:30 AM Specimen ID: [id number] Specimen Source: Blood, Peripheral Draw Specimen Comment: Specimen Source Site: Blood Specimen Collection Start Date: 07/06/2021 11:15 AM Specimen Received Date: 07/06/2021 11:30 AM BACTERIA / INES CULTURE, BLOOD Narrative: Specimen Information: Specimen ID: [id number] Specimen Source: Blood, Peripheral Draw Specimen Comment: Specimen Source Site: Blood Specimen Collection Start Date: 07/06/2021 11:27 AM Specimen Received Date: 07/06/2021 11:30 AM Specimen ID: [id number] Specimen Source: Blood, Peripheral Draw Specimen Comment: Specimen Source Site: Blood Specimen Collection Start Date: 07/06/2021 11:30 AM Specimen Received Date: 07/06/2021 11:30 AM Specimen ID: [id number] Specimen Source: Blood, Peripheral Draw Specimen Comment: [...] alcoholic liver cirrhosis referred to ED by manager of training for subjective fever. Denies cough, shortness of [...] is/are normal. Juan Dang M.D. 07/08/21 0041 NCE MGR documented in this encounter Plan of Treatment Upcoming Encounters Date Type Specialty Care Team Description Telemedicine Transplant 2 Appointment Radiology Matthew Jerome 2 YTyrell M.D. [address] [place] [phone] Appointment Gastroenterology demian Silver, 2 Hepatology Yue Burciaga M.D. [address] [place] [phone] Virtual Visit Transplant Matthew Jerome 2 YTyrell, Lilian [address] [place] [phone] Office Visit Gastroenterology and Matthew Jerome 2 Hepatology Tyrell Rodriguez M.D. [address] [place] [phone] Appointment Radiology LuisMatthew abdul 2 YTyrell M.D. [address] [place] [phone] Hospital Gastroenterology and Matthew Jerome Cirrhos is Alcoholic (HCC) 2 Encounter Hepatology Tyrell Rodriguez M.D. [address] [place] [phone] Anesthesia Event Gastroenterology and Rl, 2 Hepatology Ervin Burgos M.D. [address] [place] [phone] Surgery Gastroenterology and Matthew Jerome ESOPHAG OGASTRODUODENOSCOPY 2 Hepatology Tyrell Rodriguez, Lilian [address] [place] [phone] Scheduled Procedures Name Priority Associated Diagnoses Date/Time ESOPHAGOGASTRODUODENOSCOPY Cirrhosis Alc oholic (HCC) 03/20/2022 8:45 AM FINANCE MGR Hypertension Portal (HCC) documented as of this encounter Procedures Procedure Name Priority Date/Time Associated Comments Diagnosis BACTERIAL CULTURE, STAT 07/06/2021 11:59 Resul ts for AEROBIC + SUSC, AM FINANCE MGR this procedu re URINE are in the results section. URINALYSIS WITH STAT 07/06/2021 11:54 Results for MICROSCOPIC AM FINANCE MGR this procedure are in the results section. BACTERIA / INES STAT 07/06/2021 11:27 Resul ts for CULTURE, BLOOD AM FINANCE MGR this procedur e are in the results section. LACTATE, B STAT 07/06/2021 11:21 Results for AM FINANCE MGR this procedure are in the results section. MORPHOLOGY STAT 07/06/2021 11:21 Results for EVALUATION AM FINANCE MGR this procedure are in the results section. CBC WITH STAT 07/06/2021 11:21 Results for DIFFERENTIAL, B AM FINANCE MGR this procedu re are in the results section. COMPREHENSIVE STAT 07/06/2021 11:21 Results fo r METABOLIC PANEL, S/P AM FINANCE MGR this pr ocedure are in the results section. BACTERIA / INES STAT 07/06/2021 11:15 Resul ts for CULTURE, BLOOD AM FINANCE MGR this procedur e are in the results section. DX CHEST PORTABLE 1 RAD - Semiurgent 07/06/2021 10:58 Results for VIEW (Fast; most ED AM FINANCE MGR this procedur e patients; some are in the inpatients) results section. SARS COV-2,INFLUENZA STAT 07/06/2021 10:51 Res ults for A/B,RSV,PCR, V AM FINANCE MGR this procedur e are in the results section. documented in this encounter Results Bacterial Culture, Aerobic + Susc, Urine (07/06/2021 11:59 AM FINANCE MGR) [facility] Method Time Signature Urine Culture No growth 07/07/2021 MKTO after 1 day 11:49 AM FINANCE MGR of incubation. Specimen Anatomical Collection Method Collection Time Receive d Time (Source) Location / / Volume Laterality Urine (Urine, 07/06/2021 11:59 07/06/2021 Midstream) AM FINANCE MGR 11:59 AM FINANCE MGR Comment: Specimen Source Site: Urine Juan Dang M.D. LAB MICROBIOLOGY - GENERAL O RDERABLES Performing Organization Address City/State/ZIP Code Phon e Number [facility]- [address] [place] [phone] [place] [address] System in [place] [address] [place] [address] (ABNORMAL) Urinalysis with Microscopic: Urine, Midstream (07/06/2021 11:54 AM FINANCE MGR) Analysis Performed At [facility] Time Signature Source Urine, Urine, 07/06/2021 MKTO Midstream 12:04 PM FINANCE MGR Clarity Clear Clear 07/06/2021 MKTO 12:04 PM FINANCE MGR Color Priscilla 07/06/2021 MKTO 12:04 PM FINANCE MGR Comment: ----REFERENCE VALUE---- Colorless Yellow Priscilla Blood Negative Negative 07/06/2021 12:04 PM FINANCE MGR MKTO Nitrite Negative Negative 07/06/2021 12:04 PM FINANCE MGR MKTO Leukocyte Esterase Trace (A) Negative 07/06/2021 12:[address] MKTO Protein Negative mg/dL 07/06/2021 12:04 PM FINANCE MGR MKTO Comment: ----REFERENCE VALUE---- Negative Trace Glucose Negative Negative mg/dL 07/06/2021 12:04 PM FINANCE MGR M KTO Ketone Negative Negative mg/dL 07/06/2021 12:04 PM FINANCE MGR M KTO Bilirubin Moderate (A) Negative 07/06/2021 12:04 PM FINANCE MGR MKT O pH 7.0 5.0 - 8.0 07/06/2021 12:04 PM FINANCE MGR MKTO Specific Villanova 1.020 1.001 - 1.035 07/06/2021 12:04 PM FINANCE MGR MKTO Urobilinogen 1.0 0.2 - 1.0 mg/dL 07/06/2021 12:[address] MKTO White Blood Cells None Seen /hpf 07/06/2021 12:08 PM CS T MKTO Comment: ----REFERENCE VALUE---- Males: 0-3 Females: 0-10 Unknown: 0-10 Red Blood Cells None Seen 0 - 2 /hpf 07/06/2021 12:08 PM FINANCE MGR MKTO Hyaline Casts 1-3 /lpf 07/06/2021 12:08 PM FINANCE MGR MK TO Specimen Anatomical Collection Method Collection Time Receive d Time (Source) Location / / Volume Laterality Urine (Urine, 07/06/2021 11:54 07/06/2021 Midstream) AM FINANCE MGR 11:59 AM FINANCE MGR Juan Dang M.D. LAB URINE ORDERABLES Performing Organization Address [facility] Phon e Number [facility]- [address] [place] [phone] [place] [address] Bacteria / Ines Culture, Blood #2 (07/06/2021 11:27 AM FINANCE MGR) [facility] Method Time Signature Bacteria/Adriana No growth 07/11/2021 MKTO da Culture, after 5 12:05 PM FINANCE MGR Blood day/s of incubation. Specimen (Source) Anatomical Collection Method Collection Time Re ceived Time Location / / Volume Laterality Blood (Blood, 07/06/2021 11:27 07/06/2021 Peripheral Draw) AM FINANCE MGR 11:30 AM CS T Comment: Specimen Source Site: Blood Juan Dang M.D. LAB MICROBIOLOGY - GENERAL O RDERABLES Performing Organization Address [facility] Phon e Number [facility]- [address] [place] [phone] [place] [address] (ABNORMAL) Morphology Evaluation (07/06/2021 11:21 AM FINANCE MGR) [facility] Method Time Signature RBC Morphology See Specific 07/06/2021 MKTO Findings 12:08 PM FINANCE MGR PLT Estimate Decreased (A) Adequate 07/06/2021 MKTO 12:08 PM FINANCE MGR Acanthocytes Marked (A) 07/06/2021 MKTO 12:08 PM FINANCE MGR Polychromasia Slight (A) Not Seen 07/06/2021 MKTO 12:08 PM FINANCE MGR Specimen Anatomical Collection Method Collection Time Receive d Time (Source) Location / / Volume Laterality Blood 07/06/2021 11:21 07/06/2021 AM FINANCE MGR 11:30 AM FINANCE MGR Juan Dang M.D. LAB BLOOD ADD-ON Performing Organization Address City/[facility] Phon e Number [facility]- [address] [place] [phone] [place] [address] (ABNORMAL) Lactate, B (07/06/2021 11:21 AM FINANCE MGR) P athologist Signature Lactate, B 2.4 (H) 0.5 - 2.2 07/06/2021 MKTO mmol/L 11:33 AM FINANCE MGR Specimen Anatomical Collection Method Collection Time Receive d Time (Source) Location / / Volume Laterality Blood 07/06/2021 11:21 07/06/2021 AM FINANCE MGR 11:30 AM FINANCE MGR Juan Dang M.D. LAB BLOOD NON ADD-ON Performing Organization Address [facility] Code Phon e Number [facility]- [address] [place] [phone] [place] [address] (ABNORMAL) Comprehensive Metabolic Panel (07/06/2021 11:21 AM FINANCE MGR) Analysis Performed At Patho logist Time Signature Potassium, P 4.1 3.6 - 5.2 07/06/2021 MKTO mmol/L 11:55 AM FINANCE MGR Sodium, P 133 (L) 135 - 145 07/06/2021 MKTO mmol/L 11:55 AM FINANCE MGR Chloride, P 100 98 - 107 07/06/2021 MKTO mmol/L 11:55 AM FINANCE MGR Bicarbonate, P 21 (L) 22 - 29 07/06/2021 MKTO mmol/L 11:55 AM FINANCE MGR Anion Gap, P 12 7 - 15 07/06/2021 MKTO 11:55 AM FINANCE MGR BUN (Blood Urea 5 (L) 6 - 21 07/06/2021 MKTO Nitrogen), P mg/dL 11:55 AM FINANCE MGR Creatinine 0.55 (L) 0.59 - 07/06/2021 MKTO 1.04 mg/dL 11:55 AM FINANCE MGR eGFR-Black/Afri >90 >=60 07/06/2021 MKTO can Czech mL/min/BSA 11:55 AM FINANCE MGR Comment: ----ADDITIONAL INFORMATION---- Estimated GFR calculated using the 2009 CKD_EPI creatinine equation. eGFR Non-Black/ >90 >=60 mL/min/BSA 07/06/2021 11:55 AM FINANCE MGR MKTO Comment: ----ADDITIONAL INFORMATION---- Estimated GFR calculated using the 2009 CKD_EPI creatinine equation. Calcium, Total, P 9.2 8.6 - 10.0 mg/dL 07/06/2021 11:5 5 AM MKTO FINANCE MGR Glucose, P 97 70 - 140 mg/dL 07/06/2021 11:55 AM MKTO FINANCE MGR Protein, Total, P 5.8 (L) 6.3 - 7.9 g/dL 07/06/2021 11:55 AM MKTO FINANCE MGR Albumin, P 3.5 3.5 - 5.0 g/dL 07/06/2021 11:55 AM MKTO FINANCE MGR Aspartate Aminotransferase 71 (H) 8 - 43 U/L 07/06/2021 1 1:55 AM MKTO (AST), P FINANCE MGR Alkaline Phosphatase, P 173 (H) 35 - 104 U/L 07/06/2021 11 :55 AM MKTO FINANCE MGR Alanine Aminotransferase 26 7 - 45 U/L 07/06/2021 11: 55 AM MKTO (ALT), P FINANCE MGR Bilirubin, Total, P 7.0 (H) <=1.2 mg/dL 07/06/2021 11:55 A M MKTO FINANCE MGR Specimen Anatomical Collection Method Collection Time Receive d Time (Source) Location / / Volume Laterality Blood (Blood, 07/06/2021 11:21 07/06/2021 Venous) AM FINANCE MGR 11:30 AM FINANCE MGR Juan Dang M.D. LAB BLOOD ADD-ON Performing Organization Address City/State/ZIP Code Phon e Number [facility]- [address] [place] [phone] [place] [address] [place] [address] System [address] (ABNORMAL) CBC with Differential, Blood (07/06/2021 11:21 AM FINANCE MGR) [facility] Method Time Signature Hemoglobin 7.3 (L) 11.6 - 07/06/2021 MKTO 15.0 g/dL 12:08 PM FINANCE MGR Hematocrit 22.1 (L) 35.5 - 07/06/2021 MKTO 44.9 % 12:08 PM FINANCE MGR Erythrocytes 2.02 (L) 3.92 - 07/06/2021 MKTO 5.13 12:08 PM FINANCE MGR x10(12)/L MCV 109.4 (H) 78.2 - 07/06/2021 MKTO 97.9 fL 12:08 PM FINANCE MGR RBC Distrib Width 13.6 12.2 - 07/06/2021 MKTO 16.1 % 12:08 PM FINANCE MGR Platelet Count 66 (L) 157 - 371 07/06/2021 MKTO x10(9)/L 12:08 PM FINANCE MGR Leukocytes 7.7 3.4 - 9.6 07/06/2021 MKTO x10(9)/L 12:08 PM FINANCE MGR Neutrophils 5.72 1.56 - 07/06/2021 MKTO 6.45 12:08 PM FINANCE MGR x10(9)/L Lymphocytes 1.14 0.95 - 07/06/2021 MKTO 3.07 12:08 PM FINANCE MGR x10(9)/L Monocytes 0.73 0.26 - 07/06/2021 MKTO 0.81 12:08 PM FINANCE MGR x10(9)/L Eosinophils 0.08 0.03 - 07/06/2021 MKTO 0.48 12:08 PM FINANCE MGR x10(9)/L Basophils 0.05 0.01 - 07/06/2021 MKTO 0.08 12:08 PM FINANCE MGR x10(9)/L Specimen Anatomical Collection Method Collection Time Receive d Time (Source) Location / / Volume Laterality Blood (Blood, 07/06/2021 11:21 07/06/2021 Venous) AM FINANCE MGR 11:30 AM FINANCE MGR Juan Dang M.D. LAB BLOOD ADD-ON Performing Organization Address City/State/ZIP Code Phon e Number [facility]- [address] [place] [phone] [place] [address] Bacteria / Ines Culture, Blood #1 (07/06/2021 11:15 AM FINANCE MGR) [facility] gist Method Time Signature Bacteria/Adriana No growth 07/11/2021 MKTO da Culture, after 5 12:05 PM FINANCE MGR Blood day/s of incubation. Specimen (Source) Anatomical Collection Method Collection Time Re ceived Time Location / / Volume Laterality Blood (Blood, 07/06/2021 11:15 07/06/2021 Peripheral Draw) AM FINANCE MGR 11:30 AM CS T Comment: Specimen Source Site: Blood Juan Dang M.D. LAB MICROBIOLOGY - GENERAL O RDERABLES Performing Organization Address City/State/ZIP Code Phon e Number [facility]- [facility] [place] [address] [place] [address] System in [place] [address] [facility] DX Chest Portable 1 View (07/06/2021 10:58 AM FINANCE MGR) Anatomical Region Laterality Modality Chest, Thoracic RST LOS, Thoracic ARZ LOS, Thoracic N/A Digital Radiography FLA LOS Specimen (Source) Anatomical Collection Method Collection Time Re ceived Time Location / / Volume Laterality 07/06/2021 11:00 AM FINANCE MGR Impressions 07/06/2021 11:07 AM FINANCE MGR No acute radiographic abnormalities are demonstrated. Narrative 07/06/2021 11:07 AM FINANCE MGR EXAM: DX CHEST PORTABLE 1 VIEW COMPARISON: [...] A/B, RSV, PCR Symptomatic (07/06/2021 10:51 AM FINANCE MGR) [facility] Method Time Signature Influenza A, Undetected Undetected 07/06/2021 MKTO PCR 11:34 AM FINANCE MGR Comment: Influenza A viral RNA absent. Influenza B, PCR Undetected Undetected 07/06/2021 11:[address] MKTO Comment: Influenza B viral RNA absent. Respiratory Syncytial Virus, Undetected Undetected 03/06/2 022 11:34 AM FINANCE MGR MKTO PCR Comment: RSV RNA absent. [id number], PCR Undetected Undetected 07/06/2021 11: 34 AM FINANCE MGR MKTO Comment: SARS-CoV-2 RNA absent. ?? ----ADDITIONAL INFORMATION---- This RT-PCR test using the Xpert Xpress SARS-CoV-2/Flu/RSV assay ([employer] performed on the [employer] rt DX systems has received Emergency Use Authorization (EU A) by the U.S. Food and Drug Administration. Performanc e characteristics were verified by [facility] inic in a manner consistent with CLIA requirements . Fact sheets for this Emergency Use Autho rization (EUA) assay can be found at the following link s: For Healthcare Providers: https://www.fda.gov/media/338790/downloa d For Patients: https://www.fda.gov/media/220286/downloa d Specimen Source Swab, Nasopharynx 07/06/2021 10:55 AM FINANCE MGR MKTO Specimen Anatomical Collection Method Collection Time Receive d Time (Source) Location / / Volume Laterality Varies 07/06/2021 10:51 07/06/2021 (Nasopharynx) AM FINANCE MGR 10:55 AM FINANCE MGR Juan Dang M.D. LAB MICROBIOLOGY - GENERAL O RDERABLES Performing Organization Address City/State/ZIP Code Phon e Number [facility]- [address] [place] [phone] [place] [address] [place] [address] System in [address] documented in this encounter Visit Diagnoses Diagnosis Fever Of Unknown Origin - Primary Cirrhosis Alcoholic (HCC) Cirrhosis Alcoholic (HCC) Hypertension Portal (HCC) documented in this encounter Administered Medications Inactive Administered Medications - up to 3 most recent administrations Medication Order MAR Action Action Date Dose Rate Site fentaNYL injection 50 mcg Given 07/06/2021 11:32 AM FINANCE MGR 50 mcg (SUBLIMAZE) 50 mcg, intravenous, Once, [...] intravenous, As needed, line care, Starting on [place] 07/06/21 at 1044, Prior to and following infusion and between multi ple consecutive infusions: sodium chloride 0.9 % injection sodium chloride 0.9 % injection 3 mL 3 mL, intravenous, Every 12 hours scheduled, First dos e on [place] 07/06/21 at 2100, Peripheral Intravenous Catheter and Rapi d Infusion Catheter, when no infusion to maintain patency documented in this encounter Active and Recently Administered Medications Times are shown in FINANCE MGR. Scheduled Medication Order 07/04/2021 07/05/2021 07/06/2021 fentaNYL injection 50 mcg (SUBLIMAZE) (COMPLETED) 1132 (Given - Provider: Roseline Solorzano R.N.) 50 mcg, intravenous, Once, On [place] 07/06/21 at 1110, For 1 dose sodium chloride 0.9 % injection 3 mL 3 mL, intravenous, Every 12 hours schedu led, First dose on [place] 07/06/21 at 2100, Peripheral Intravenous Catheter and Rapid Infusion Catheter, when no infusion to maintain patency PRN Medication Order 07/04/2021 07/05/2021 07/06/2021 sodium chloride 0.9 % injection 10 mL 10 mL, intravenous, As needed, line care , Starting on [place] 07/06/21 at 1044, Peripheral Intravenous Catheter and Rapid Infusion Catheter, prior to blood sampling, post blood transfusion or post blood sampling sodium chloride 0.9 % injection 3 mL 3 mL, intravenous, As needed, line care, Starting on [place] 07/06/21 at 1044, Prior to and following infusion and between multiple consecutive infusions: sodium chloride 0.9 % injection documented in this encounter Additional Health Concerns Infection Onset Date Last Indicated Resolved Time COVID19 Pending 07/06/2021 07/06/2021 07/06/2021 11:34 AM FINANCE MGR documented as of this encounter Care Teams Materials Specialist Relationship Specialty Start Date End Date Elsewhere, Pcp PCP - General Family Medicine 03/10/20 11/30/21 Ervin Schroeder MD Referring Provider Family Medicine 03/24/[address] [place] [phone] documented as of this encounter
--- OUTSIDE RECORDS SUMMARY | 2022-02-12 20:33 | XMS_ITS | Encounter Summary ---
:1990 Author Organization [facility] Address [address] [place] [address] Care Team Providers Name Role Phone Elsewhere, Pcp Primary Care Provider Unavailable Encounter Details Date Type Department Care Team Description 07/08/2021 Clinical Communication Department of Kerry Naran[facility] in [place], [place] C.N.P., M.S.N. [address] [facility] 10[address] [place] [address] [place], [place] [phone] Social History Tobacco Use Types Packs/Day [...] you attend adventism or Patient refused 2021 zoroastrianism services? 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 [address] [place] [phone] Virtual Visit Transplant Matthew Jerome 2 YJoshuaBSumaBLilian Bedolla [address] [place] [phone] Office Visit Gastroenterology Matthew Ramirez 2 Hepatology Vik RodriguezBLilian Bedolla [address] [place] [phone] Appointment Radiology Queenie Matthew 2 YTyrell M.D. [address] [place] [phone] Hospital Gastroenterology and [facility] Cirrhos is Alcoholic (HCC) 2 Encounter Hepatology Tyrell Rodriguez M.D. [address] [place] [phone] Anesthesia Event Gastroenterology and [facility], 2 Hepatology Ervin Burgos M.D. [address] [place] [phone] Surgery Gastroenterology and [facility] ESOPHAG OGASTRODUODENOSCOPY 2 Hepatology Tyrell Rodriguez M.D. [address] [place] [phone] Scheduled Procedures Name Priority Associated Diagnoses Date/Time ESOPHAGOGASTRODUODENOSCOPY Cirrhosis Alc oholic (HCC) 03/20/2022 8:45 AM MOTION PICTURE PROJECTIONIST Hypertension Portal (HCC) documented as of this encounter Visit Diagnoses Not on filedocumented in this encounter Care Teams Textile Conservator Relationship Specialty Start Date End Date Elsewhere, Pcp PCP - General Family Medicine 03/10/20 11/30/21 Ervin Schroeder MD Referring Provider Family Medicine 03/24/[address] [place] [phone] documented as of this encounter
--- OUTSIDE RECORDS SUMMARY | 2022-02-12 20:33 | XMS_ITS | Encounter Summary ---
:1990 Author Organization [facility] Address [address] [place] [address] Care Team Providers Name Role Phone Elsewhere, Pcp Primary Care Provider Unavailable Encounter Details Date Type Department Care Team Description 07/06/2021 Documentation Department of Gastroenterology Myke Fish, in [place], [facility] joe LewisB.B.S 1025 [facility] [address] [place] [phone] [place], [place] [phone] Social History Tobacco Use Types Packs/Day [...] you attend jewish or Patient refused 2021 lutheran services? 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 TATION OPERATOR AUTOMATIC documented in this encounter Plan of Treatment Upcoming Encounters Date Type Specialty Care Team Description Telemedicine Transplant 2 Appointment Radiology Matthew Jerome 2 YTyrell M.D. [address] [place] [phone] Appointment Gastroenterology demian Silver, 2 Hepatology Yue Burciaga M.D. [address] [place] [phone] Virtual Visit Transplant Matthew Jerome 2 YTyrell M.D. [address] [place] [phone] Office Visit Gastroenterology and Matthew Jerome 2 Hepatology Tyrell Rodriguez M.D. [address] [place] [phone] Appointment Radiology LuisMatthew abdul 2 YTyrell M.D. [address] [place] [phone] Hospital Gastroenterology and Matthew Jerome Cirrhos is Alcoholic (HCC) 2 Encounter Hepatology Tyrell Rodriguez M.D. [address] [place] [phone] Anesthesia Event Gastroenterology and Rl, 2 Hepatology Ervin Burgos M.D. [address] [place] [phone] Surgery Gastroenterology and Matthew Jerome ESOPHAG OGASTRODUODENOSCOPY 2 Hepatology Vik RodriguezBGraeme, Lilian [address] [place] [phone] Scheduled Procedures Name Priority Associated Diagnoses Date/Time ESOPHAGOGASTRODUODENOSCOPY Cirrhosis Alc oholic (HCC) 03/20/2022 8:45 AM SUBSTATION OPERATOR AUTOMATIC Hypertension Portal (HCC) documented as of this encounter Visit Diagnoses Not on filedocumented in this encounter Care Teams Department Head College Or University Relationship Specialty Start Date End Date Elsewhere, Pcp PCP - General Family Medicine 03/10/20 11/30/21 Ervin Schroeder MD Referring Provider Family Medicine 03/24/[address] [place] [address] documented as of this encounter
--- OUTSIDE RECORDS SUMMARY | 2022-02-12 20:34 | XMS_ITS | Encounter Summary ---
:1990 Author Organization [facility] Address [address] [place] [address] Care Team Providers Name Role Phone Elsewhere, Pcp Primary Care Provider Unavailable Encounter Details Date Type Department Care Team Description 04/29/2021 Clinical Communication Department of Kerry Naranjo Gastroenterology in [place], [place] C.N.P., M.S.N. 1025 [facility] 1025 [place] [address] [place], [place] [phone] Social History Tobacco Use Types Packs/Day [...] you attend judaism or Patient refused 2021 rastafari services? 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 - 04/29/2021 4:07 PM CST Notified patient of recommendations. Patient was very appreciative of the information. FARM OPERATIONS MANAGER Telephone Encounter - Kerry Naranjo APRN, C.NDayne, M.S.N. - 04/29/2021 4:03 PM CST Reviewed gabapentin in relation to hepatic/liver disease there are no adjustments needed (per [employer]). It is ok for her to take. Kerry Naranjo APRN, C.N.PSuma, M.S.N. FARM OPERATIONS MANAGER Telephone Encounter - Ines Warren R.N. - [...] to taking gabapentin from a GI standpoint? FARM OPERATIONS MANAGER Telephone Encounter - Elizabet Corrales - 04/29/2021 2:41 PM CST Patient is requesting a call back in regards to her Gabapentin from Kerry Naranjo. Ok to leave a message. FARM OPERATIONS MANAGER documented in this encounter Plan of Treatment Upcoming Encounters Date Type Specialty Care Team Description Telemedicine Transplant 2 Appointment Radiology Matthew Jerome 2 Tyrell Rodriguez, Lilian [address] [place] [phone] Appointment Gastroenterology and Adrianne, 2 Hepatology Yue Bruciaga M.D. [address] [place] [phone] Virtual Visit Transplant Matthew Jerome 2 Vik RodriguezBLilian Bedolla [address] [place] [phone] Office Visit Gastroenterology and Matthew Jerome 2 Hepatology Vik RodriguezBLilian Bedolla [address] [place] [phone] Appointment Radiology Matthew Jerome 2 YTyrell M.D. [address] [place] [phone] Hospital Gastroenterology and Mousa, Matthew Cirrhos is Alcoholic (HCC) 2 Encounter Hepatology Tyrell Rodriguez, Lilian [address] [place] [phone] Anesthesia Event Gastroenterology and Rl, 2 Hepatology Ervin Burgos M.D. 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
--- OUTSIDE RECORDS SUMMARY | 2022-02-12 20:34 | XMS_ITS | Encounter Summary ---
:1990 Author Organization [facility] Address [address] [place] [address] Care Team Providers Name Role Phone Elsewhere, Pcp Primary Care Provider Unavailable Encounter Details Date Type Department Care Team Description 04/18/2021 Clinical Communication Department of Kerry Naranjo Gastroenterology in [place], [place] C.N.P., M.S.N. 1025 [facility] 1025 [place] [address] [place], [place] [phone] Social History Tobacco Use Types Packs/Day [...] you attend confucianism or Patient refused 2021 tenriism services? 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 She should not be driving, and she should get her primary care provider to send her to [facility] for an assessment for safe driving. [...] tumor marker, zinc -Vitamin A prescribed to [facility] -Consider taking one vitamin daily -when reviewing her CT scan with the patient during the visit, did note the interpretation findings included malpositioned IUD; she was notified and she stated she will follow-up with her PCP as she has appointment next Wednesday. She also was instructed to contact her [facility] to sign BIANKA as unable to see her laboratory records in Care everywhere. -EGD/MAC. MAC sedation as screening for varices with possible banding -GI follow-up one week after EGD TING MACHINE OPERATOR documented in this encounter Plan of Treatment Upcoming Encounters Date Type Specialty Care Team Description Telemedicine Transplant 2 Appointment Radiology Matthew Jerome 2 YTyrell M.D. [address] [place] [phone] Appointment Gastroenterology and Adrianne, 2 Hepatology Yue Burciaga M.D. [address] [place] [phone] Virtual Visit Transplant Matthew Jerome 2 YTyrell M.D. [address] [place] [phone] Office Visit Gastroenterology and Matthew Jerome 2 Hepatology Vik RodriguezBGraeme, Lilian [address] [place] [phone] Appointment Radiology Matthew Jerome 2 YTyrell M.D. [address] [place] [phone] Hospital Gastroenterology and Matthew Jerome Cirrhos is Alcoholic (HCC) 2 Encounter Hepatology Tyrell Rodriguez, Lilian [address] [place] [phone] Anesthesia Event Gastroenterology and Rl, 2 Hepatology Ervin Burgos M.D. [address] [place] [phone] Surgery Gastroenterology and Queenie Matthew ESOPHAG OGASTRODUODENOSCOPY 2 Hepatology Joshua RodriguezBSumaBGraeme, Lilian [address] [place] [phone] Scheduled Procedures Name Priority Associated Diagnoses Date/Time ESOPHAGOGASTRODUODENOSCOPY Cirrhosis Alc oholic (HCC) 03/20/2022 8:45 AM KNOTTING MACHINE OPERATOR Hypertension Portal (HCC) documented as of this encounter Visit Diagnoses Not on filedocumented in this encounter Care Teams Buggy Man Relationship Specialty Start Date End Date Elsewhere, Pcp PCP - General Family Medicine 03/10/20 11/30/21 Ervin Schroeder MD Referring Provider Family Medicine 03/24/[address] [place] [phone] documented as of this encounter
--- OUTSIDE RECORDS SUMMARY | 2022-02-12 20:34 | XMS_ITS | Encounter Summary ---
:1990 Author Organization [facility] Address [address] [place] [address] Care Team Providers Name Role Phone Elsewhere, Pcp Primary Care Provider Unavailable Reason for Referral Outpatient (Routine) - Closed Specialty Diagnoses / Referred By Contact Referred To Procedures [facility] Low[place] VIGILNDayne, M.S.N. [facility] [place] [address] Referral ID Status Reason Start Date Expiration Date Visits Requ ested Visits Authorized [id number] Closed 04/17/2021 04/17/2022 1 1 OLEUM SAMPLER Reason for Visit Outpatient (Routine) - Closed Specialty Diagnoses / Referred By Contact Referred To Procedures Contact Kerry Mosquera [facility] Hepatology Katrin VIGIL.Lidia, M.S.N. [address] [place] [address] Referral ID Status Reason Start Date Expiration Date Visits Requ ested Visits Authorized [id number] Closed 03/15/2021 03/15/2022 1 1 Encounter Details Date Type Department Care Team Description 04/17/2021 Office Visit Department of Kerry Naranjo Cirrhosis Alc oholic (HCC) (Primary Dx); Gastroenterology in [place], [place], Thromboc ytopenia (HCC); [place], [place] C.N.P., Splenomegaly Acquired; 1025 [facility] M.S.N. Deficiency Vitamin D; [place] [phone] 1025 [facility] Deficiency Vitamin A; [phone] [place], [place] Hypertension Po rtal (HCC); [phone] Ascites; [phone] Jaundice; (Work) Malnutrition Protein-Calorie Unspecified (HCC) Social [...] you attend yazidism or Patient refused 2021 restorationism services? Do [...] at Date Recorded Female 04/12/2021 7:39 PM PETROLEUM SAMPLER documented as of this encounter Last Filed Vital Signs Vital Sign Reading Time Taken Comments Blood Pressure 100/60 04/17/2021 3:20 PM PETROLEUM SAMPLER Pulse 80 04/17/2021 3:20 PM PETROLEUM SAMPLER Temperature - - Respiratory Rate - - Oxygen Saturation - - Inhaled Oxygen Concentration - - Weight 50.3 kg (110 lb 14.3 oz) 04/17/2021 3:20 PM PETROLEUM SAMPLER Height 157.5 cm (5' 2.01) 04/17/2021 3:20 PM PETROLEUM SAMPLER Body Mass Index 20.28 04/17/2021 3:20 PM PETROLEUM SAMPLER documented in this encounter Patient Instructions Patient [...] red or purple colored beverages, Jell-O, popsicles *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 - 04/17/2021 3:30 PM CST Kerry Naranjo APRN, C.N.P., M.S.N. [address] [place] [address] Patient Name: Catia Carias Date of : [...] care provider Dr. Ervin Schroeder, from [facility] in [facility]; phone [phone], . She stateshe prescribed vitamin-D for GERD [...] She also was instructed to contact her [facility] to sign BIANKA as unable to see [...] Naranjo APRN, Katrin.NLala., M.S.N. Gastroenterology and Hepatology [facility] OLEUM SAMPLER documented in this encounter Plan of Treatment Upcoming Encounters Date Type Specialty Care Team Description Telemedicine Transplant 2 Appointment Radiology Matthew Jerome 2 YTyrell M.D. [address] [place] [phone] Appointment Gastroenterology and Adrianne, 2 Hepatology Yue Burciaga M.D. [address] [place] [phone] Virtual Visit Transplant LuisNew abdular 2 Tyrell Rodriguez M.D. [address] [place] [phone] Office Visit Gastroenterology and Matthew Jerome 2 Hepatology Tyrell Rodriguez M.D. [address] [place] [phone] Appointment Radiology Queenie Matthew 2 Tyrell Rodriguez M.D. [address] [place] [phone] Hospital Gastroenterology and Matthew Jerome Cirrhos is Alcoholic (HCC) 2 Encounter Hepatology Joshua RodriguezBLilian Staples [address] [place] [phone] Anesthesia Event Gastroenterology and Rl, 2 Hepatology Ervin Burgos M.D. [address] [place] [phone] Surgery Gastroenterology and Matthew Jerome ESOPHAG OGASTRODUODENOSCOPY 2 Hepatology Joshua RodriguezBSumaBLilian Bedolla [address] [place] [phone] Scheduled Procedures Name Priority Associated Diagnoses Date/Time ESOPHAGOGASTRODUODENOSCOPY Cirrhosis Alc oholic (HCC) 03/20/2022 8:45 AM PETROLEUM SAMPLER Hypertension Portal (HCC) Scheduled Referrals Name Type [...] (HCC) documented in this encounter Care Teams Spotter Driver Relationship Specialty Start Date End Date Elsewhere, Pcp PCP - General Family Medicine 03/10/20 11/30/21 Ervin Schroeder MD Referring Provider Family Medicine 03/24/[address] [place] [phone] documented as of this encounter
--- OUTSIDE RECORDS SUMMARY | 2022-02-12 20:35 | XMS_ITS | Encounter Summary ---
:1990 Author Organization [facility] Address [address] [place] [address] Care Team Providers Name Role Phone Elsewhere, Pcp Primary Care Provider Unavailable Reason for Referral Outpatient (Routine) - Closed Specialty Diagnoses / Referred By Contact Referred To Procedures [facility] Katrin VIGIL.NDayne, M.S.N. [address] [place] [address] Referral ID Status Reason Start Date Expiration Date Visits Requ ested Visits Authorized [id number] Closed 03/15/2021 03/15/2022 1 1 CE SUPPORT ASSISTANT Reason for Visit Auth/Cert Specialty Diagnoses / Procedures Referred By Contact Refer red To Contact Diagnoses Change Mental Status Liver failure Procedures Referral ID Status Reason Start Date Expiration Date Visits Requ ested Visits Authorized [id number] 1 1 Encounter Details Date Type Department Care Team Description 03/12/2021 - Hospital Encounter [facility] Antwan Lazo, JeriO. [address] [place] [phone] Change Mental Status (Primary Dx); 03/24/2021 [facility] Ulises Griffith M.B.B.S. [address] [place] [phone] Cirrhosis Alcoholic (HCC) [facility] [address] [place] [phone] [place] [phone] Social History Tobacco Use Types Packs/Day [...] you attend congregation or Patient refused 2021 cheondoism services? Do [...] Date Recorded Female 04/12/2021 7:39 PM OFFICE SUPPORT ASSISTANT documented as of this encounter Last Filed Vital Signs Vital Sign Reading Time Taken Comments Blood Pressure 114/84 03/24/2021 6:18 AM OFFICE SUPPORT ASSISTANT Pulse 101 03/24/2021 6:18 AM OFFICE SUPPORT ASSISTANT Temperature 37.5 ??C (99.5 ??F) 03/24/2021 6:18 AM OFFICE SUPPORT ASSISTANT Respiratory Rate 16 03/23/2021 10:36 PM OFFICE SUPPORT ASSISTANT Oxygen Saturation 97% 03/24/2021 6:18 AM OFFICE SUPPORT ASSISTANT Inhaled Oxygen Concentration - - Weight 56.6 kg (124 lb 12.5 oz) 03/23/2021 6:35 AM OFFICE SUPPORT ASSISTANT Height 157.5 cm (5' 2) 03/12/2021 6:15 AM OFFICE SUPPORT ASSISTANT Body Mass Index 22.82 03/12/2021 6:15 AM OFFICE SUPPORT ASSISTANT documented in this encounter Discharge Summaries Darian Thomas M.D., J.D. - 03/24/2021 8:11 AM CST DISCHARGE SUMMARY BRIEF OVERVIEW Discharge Hospital: Hospital: [facility] Discharge Provider: No att. providers found Primary Care Providers: Elsewhere, Pcp (General) No address on file Discharge Provider Team: [facility] Primary Care Provider Phone Number: None Primary [...] on CT scan. Newly diagnosed PFO with ffqnb-hf-vyes atrial shunt. Severe left atrial enlargement. Consider [...] consider having patient follow up with a manager custom in the outpatient setting. MEDICATIONS CHANGED DURING [...] staffed with Dr. Guzman. Darian Thomas MD, [facility] Residency CE SUPPORT ASSISTANT Associated attestation - Keerthi Guzman M.D. - 03/25/2021 7:48 AM OFFICE SUPPORT ASSISTANT I saw the patient on the day [...] encounter Discharge Instructions Discharge Instr - Non [place] Follow-UpsHope Keating - 03/24/2021 10:30 AM OFFICE SUPPORT ASSISTANT Post Hospital follow-up Dr. Schroeder on: Monday, March 26 at 9:[address] [address] Gastroenterology and Hepatology consult with Dr. Kerry Naranjo on: April 17, 2021 at 3:15pm [address] [address] CE SUPPORT ASSISTANT documented in this encounter Medications at Time [...] Cirrhosis Alcoholic (HCC) ASSESSMENT / PLAN ASSESSMENT flight engineer manager participated in bedside team rounds with bedside nurse Hope LEROY and Dr. Guzman. Patient was cleared to discharge Julissa Hart [facility] states there are no needs and no f/u needed for mental health as an outpatient. Dr. Guzman reports patient will be ready for discharge on 03-24-21. Patient will discharge to home on 03-24-21. S.O. will provide transportation at approximately 1200. PLAN 1. Care team reporting patient is expected to discharge home when medically stable. 2. There are no identified pillowcase maker needs at this time. 3. manager utilization will assist as needed and requested. Nola Marcos R.N. 03/24/21 CE SUPPORT ASSISTANT Zenobia Dickson, Pharm.D., R.Ph. - 03/23/2021 4:13 [...] oral SBP prophylaxis Zenobia Dickson Pharm.D., R.Ph. CE SUPPORT ASSISTANT Darian Thomas M.D., J.D. - 03/23/2021 7:25 [...] staffed with Dr. Guzman. Darian Thomas MD [facility] Residency CE SUPPORT ASSISTANT Associated attestation - Keerthi Guzman M.D. - 03/23/2021 2:26 PM OFFICE SUPPORT ASSISTANT I saw and evaluated the patient, participating [...] insist that she saw a nurse and safety spec friend of hers, Stephanie. She says this [...] spent in counseling and coordination of care. CE SUPPORT ASSISTANT Associated attestation - Desire Ram M.B.B.S., M.D. - 03/25/2021 11:28 PM OFFICE SUPPORT ASSISTANT I saw and evaluated the patient, participating [...] staffed with Dr. Guzman. Darian Thomas MD [facility] Residency CE SUPPORT ASSISTANT Associated attestation - Keerthi Guzman M.D. - 03/22/2021 3:19 PM OFFICE SUPPORT ASSISTANT I saw and evaluated the patient, participating [...] Monitoring/Evaluation Monitoring: Meals/Supplement Intake,Weight Status,Mental Status/Confusion,Nausea/Vomiting/Diarrhea,Pertinent Labs CE SUPPORT ASSISTANT Darian Thomas M.D., J.Jeri - 03/21/2021 12:16 [...] considered holdable if she decides to leave [place] --cont. Zyprexa 5 mg q.h.s. p.r.n. per [...] staffed with Dr. Guzman. Darian Thomas MD [facility] Residency CE SUPPORT ASSISTANT Associated attestation - Keerthi Guzman M.D. - 03/21/2021 2:26 PM OFFICE SUPPORT ASSISTANT I saw and evaluated the patient, participating [...] to accept patient to the [facility] once medically stable --per psych, patient [...] staffed with Dr. Guzman. Darian Thomas MD [facility] Residency CE SUPPORT ASSISTANT Associated attestation - Keerthi Guzman M.D. - 03/20/2021 12:10 PM OFFICE SUPPORT ASSISTANT I saw and evaluated the patient, participating [...] discharge: oral SBP prophylaxis Paco Shah, PharmD, [facility]. CE SUPPORT ASSISTANT Bernarda Manning APRN, C.N.P., D.N.P. - 03/19/2021 [...] last night. He says these woman working [place] and would not have been in the [...] Daily Given, 5 mg at 03/19 135 xlrqttvjs-uzilbu-dhjodughe 280-160-250 mg per packet 2 packet (PHOS-NAK) [...] considered holdable if she decides to leave [place] without a safe discharge plan in place. - Will continue to follow and reassess the need for inpatient psychiatry once she is more medically stable, and the encephalopathy has resolved. ?? ADMINISTRATIVE BILLING Total time is 35 minutes with greater than 25 minutes spent in counseling and coordination of care. CE SUPPORT ASSISTANT Darian Thomas M.D., J.D. - 03/19/2021 1:41 [...] staffed with Dr. Guzman. Darian Thomas MD [facility] Residency CE SUPPORT ASSISTANT Associated attestation - Keerthi Guzman M.D. - 03/19/2021 7:11 PM OFFICE SUPPORT ASSISTANT I saw and evaluated the patient, participating [...] oral SBP prophylaxis Virginie Valerio, PharmSumaD., R.Ph. CE SUPPORT ASSISTANT Sofi Tomlin RDN, TALI - 03/18/2021 2:36 [...] not eaten yet this morning and encouraged rewriter to allow pt to rest as pt [...] 57 kg BMI (Calculated): 23 kg/m?? % Summers Body Weight: 108 % IBW Adjusted Body [...] EVALUATION: Nutrition Monitoring/Evaluation Monitoring: Meals/Supplement Intake,Nausea/Vomiting/Diarrhea,Pertinent Labs CE SUPPORT ASSISTANT Paco Shah, Pharm.D., R.Ph. - 03/18/2021 11:03 [...] oral SBP prophylaxis Virginie Valerio, Pharm.D., R.Ph. CE SUPPORT ASSISTANT Darian Thomas M.D., J.D. - 03/18/2021 10:08 [...] staffed with Dr. Valle. Darian Thomas MD [facility] CE SUPPORT ASSISTANT Associated attestation - Ulises Valle M.B.B.S. - 03/20/2021 12:12 PM OFFICE SUPPORT ASSISTANT I saw and evaluated the patient, participating [...] -- Take 50 mg by mouth daily. CE SUPPORT ASSISTANT Junaid Cast M.D. - 03/17/2021 3:02 PM [...] M.B.B.S. Junaid Cast M.D. PGY1 [facility] CE SUPPORT ASSISTANT Associated attestation - Ulises Valle M.B.B.S. - 03/18/2021 6:06 PM OFFICE SUPPORT ASSISTANT I saw and evaluated the patient, participating [...] Procedure Component Value - Date/Time Gram Stain [[id number]] Collected: 03/12/21 1546 Lab Status: Final result Specimen: Peritoneal Fluid Updated: 03/12/21 1822 Gram Stain No organisms seen. White blood cells present. Stain performed on concentrated cytospin preparation. Bacterial Culture, Anaerobic + Susc [[id number]] Collected: 03/12/21 1546 Lab Status: In process Specimen: Peritoneal Fluid Updated: 03/12/21 1548 Bacterial Culture, Aerobic + Susc [[id number]] Collected: 03/12/21 1546 Lab Status: Preliminary result Specimen: Peritoneal Fluid Updated: 03/13/21 1129 Bacterial Culture, Aerobic + Susc No growth to date Bacterial Culture, Aerobic + Susc [[id number]] Collected: 03/12/21 1234 Lab Status: Preliminary result Specimen: Pleural Fluid, Right Updated: 03/13/21 1133 Bacterial Culture, Aerobic + Susc No growth to date Bacterial Culture, Anaerobic + Susc [[id number]] Collected: 03/12/21 1234 Lab Status: In process Specimen: Pleural Fluid, Right Updated: 03/12/21 1308 Gram Stain [[id number]] Collected: 03/12/21 1234 Lab Status: Final result Specimen: Pleural Fluid, Right Updated: 03/12/21 1646 Gram Stain No organisms seen. White blood cells present. Stain performed on concentrated cytospin preparation. Gram Stain [[id number]] Collected: 03/12/21 1234 Lab Status: No result Specimen: Pleural Fluid, Right SARS Coronavirus-2 RNA, V Symptomatic [[id number]] Collected: 03/12/21 1100 Lab Status: Final result [...] was performed using the Aptima SARS-CoV-2 assay ([employer] on the [employer] System under emergency use authorization (EUA) by the U.S. Food and Drug Administration. Fact sheets for this EUA assay can be found at the following links: For Healthcare Providers: https://www.fda.gov/media/947669/download For Patients: https://www.fda.gov/media/412013/download Influenza A/B and RSV, PCR, Varies [[id number]] Collected: 03/12/21 1100 Lab Status: Final result Specimen: Varies from Nasopharynx Updated: 03/13/21 1155 Influenza A/B and RSV, Source Swab, Nasopharynx Influenza A, PCR Undetected Comment: Influenza A RNA absent. Influenza B, PCR Undetected Comment: Influenza B RNA absent. Respiratory Syncytial Virus, PCR Undetected Comment: RSV RNA absent. ----ADDITIONAL INFORMATION---- This test has been modified from the director of retail merchandising's instructions. Its performance characteristics were determined by [facility] in a manner consistent with CLIA requirements. This test has not been cleared or approved by the U.S. Food and Drug Administration. Bacteria / Raudel Culture, Blood #2 [[id number]] Collected: 03/12/21 0710 Lab Status: Preliminary result Specimen: Blood, Peripheral Draw Updated: 03/13/21 0805 Bacteria/Raudel Culture, Blood No growth to date. MRSA PCR, Nasal [[id number]] Collected: 03/12/21622 Lab Status: Final result Specimen: Swab from Nares Updated: 03/12/21 1050 MRSA Screen, Nasal by PCR Negative Hepatitis B Surface Antigen [[id number]] Collected: 03/12/21557 Lab Status: Final result Specimen: Blood, Peripheral Draw Updated: 03/12/21 0744 HBs Antigen, S Nonreactive Comment: Biotin has been identified by the director of retail merchandising as a potential interfering substance. Higher concentrations of biotin may be found in multivitamins, hair/nail supplements, and workout supplements. If the result does not match clinical observations, repeat testing after patient refrains from the use of supplements for at least 12 hours. Hepatitis B Core IgM Ab [[id number]] Collected: 03/12/21557 Lab Status: Final result Specimen: Blood, Peripheral Draw Updated: 03/13/21 09 HBc IgM Ab, S Negative Hepatitis A IgM Ab, Serum [[id number]] Collected: 03/12/21557 Lab Status: Final result Specimen: Blood, Peripheral Draw Updated: 03/13/21 0951 Hepatitis A IgM Ab, S Negative Comment: Result does not exclude the possibility of exposure to hepatitis A virus. Antibody level during early infection stage may be below the limit of detection of the assay. HCV Ab w/Reflex to HCV PCR, Serum [[id number]] Collected: 03/12/21557 Lab Status: Final result Specimen: Blood, Peripheral Draw Updated: 03/13/21 09 HCV Ab, S Negative Comment: Utdfov-qy-ymbqyr ratio is <1.00. Bacteria / Raudel Culture, Blood #1 [[id number]] Collected: 03/12/21556 Lab Status: Preliminary result Specimen: [...] out given to hospitalist. Lizet Navarro M.D. CE SUPPORT ASSISTANT Ulises Valle M.B.B.S. - 03/16/2021 5:30 PM [...] more details on the specifics ofthe plan. CE SUPPORT ASSISTANT Kerry Naranjo APRN, C.N.P., M.S.N. - 03/16/2021 [...] ICU attending. Kerry Naranjo APRN, Katrin.N.Frances, M.S.N. CE SUPPORT ASSISTANT Daron Cochran, PharmSumaD., R.Ph. - 03/16/2021 9:20 [...] Procedure Component Value - Date/Time Gram Stain [[id number]] Collected: 03/12/21 1547 Lab Status: Final result Specimen: Peritoneal Fluid Updated: 03/12/211821 Gram Stain No organisms seen. White blood cells present. Stain performed on concentrated cytospin preparation. Bacterial Culture, Anaerobic + Susc [[id number]] Collected: 03/12/21 1546 Lab Status: Preliminary result Specimen: Peritoneal Fluid Updated: 03/14/21 0523 Bacterial Culture, Anaerobic No growth to date. Bacterial Culture, Aerobic + Susc [[id number]] Collected: 03/12/21 1546 Lab Status: Preliminary result Specimen: Peritoneal Fluid Updated: 03/13/21 1129 Bacterial Culture, Aerobic + Susc No growth to date Bacterial Culture, Aerobic + Susc [[id number]] Collected: 03/12/21 1234 Lab Status: Preliminary result Specimen: Pleural Fluid, Right Updated: 03/13/21 1133 Bacterial Culture, Aerobic + Susc No growth to date Bacterial Culture, Anaerobic + Susc [[id number]] Collected: 03/12/21 1234 Lab Status: Preliminary result Specimen: Pleural Fluid, Right Updated: 03/14/21 0523 Bacterial Culture, Anaerobic No growth to date. Gram Stain [[id number]] Collected: 03/12/21 123 Lab Status: Final result Specimen: Pleural Fluid, Right Updated: 03/12/21 1646 Gram Stain No organisms seen. White blood cells present. Stain performed on concentrated cytospin preparation. Gram Stain [[id number]] Collected: 03/12/21 1234 Lab Status: No result Specimen: Pleural Fluid, Right SARS Coronavirus-2 RNA, V Symptomatic [[id number]] Collected: 03/12/21 1100 Lab Status: Final result [...] was performed using the Aptima SARS-CoV-2 assay ([employer] on the [employer] System under emergency use authorization (EUA) by the U.S. Food and Drug Administration. Fact sheets for this EUA assay can be found at the following links: For Healthcare Providers: https://www.fda.gov/media/301382/download For Patients: https://www.fda.gov/media/183876/download Influenza A/B and RSV, PCR, Varies [[id number]] Collected: 03/12/21 1100 Lab Status: Final result Specimen: Varies from Nasopharynx Updated: 03/13/21 1155 Influenza A/B and RSV, Source Swab, Nasopharynx Influenza A, PCR Undetected Comment: Influenza A RNA absent. Influenza B, PCR Undetected Comment: Influenza B RNA absent. Respiratory Syncytial Virus, PCR Undetected Comment: RSV RNA absent. ----ADDITIONAL INFORMATION---- This test has been modified from the director of retail merchandising's instructions. Its performance characteristics were determined by [facility] in a manner consistent with CLIA requirements. This test has not been cleared or approved by the U.S. Food and Drug Administration. Bacteria / Raudel Culture, Blood #2 [[id number]] Collected: 03/12/21 0710 Lab Status: Preliminary result Specimen: Blood, Peripheral Draw Updated: 03/16/21 0805 Bacteria/Raudel Culture, Blood No growth to date. MRSA PCR, Nasal [[id number]] Collected: 03/12/21 0623 Lab Status: Final result Specimen: Swab from Nares Updated: 03/12/21 1050 MRSA Screen, Nasal by PCR Negative Hepatitis B Surface Antigen [[id number]] Collected: 03/12/21557 Lab Status: Final result Specimen: Blood, Peripheral Draw Updated: 03/12/21 0744 HBs Antigen, S Nonreactive Comment: Biotin has been identified by the director of retail merchandising as a potential interfering substance. Higher concentrations of biotin may be found in multivitamins, hair/nail supplements, and workout supplements. If the result does not match clinical observations, repeat testing after patient refrains from the use of supplements for at least 12 hours. Hepatitis B Core IgM Ab [[id number]] Collected: 03/12/21557 Lab Status: Final result Specimen: Blood, Peripheral Draw Updated: 03/13/21911 HBc IgM Ab, S Negative Hepatitis A IgM Ab, Serum [[id number]] Collected: 03/12/21557 Lab Status: Final result Specimen: Blood, Peripheral Draw Updated: 03/13/21950 Hepatitis A IgM Ab, S Negative Comment: Result does not exclude the possibility of exposure to hepatitis A virus. Antibody level during early infection stage may be below the limit of detection of the assay. HCV Ab w/Reflex to HCV PCR, Serum [[id number]] Collected: 03/12/21 0558 Lab Status: Final result Specimen: Blood, Peripheral Draw Updated: 03/13/21 0925 HCV Ab, S Negative Comment: Wmgujm-ud-rkvrvz ratio is <1.00. Bacteria / Raudel Culture, Blood #1 [[id number]] Collected: 03/12/21 0557 Lab Status: Preliminary result Specimen: Blood, Peripheral Draw Updated: 03/16/21 0705 Bacteria/Arudel Culture, Blood No growth to date. ASSESSMENT [...] oral SBP prophylaxis Virginie Valerio, Pharm.D., R.Ph. CE SUPPORT ASSISTANT Lizet Navarro M.D. - 03/15/2021 1:19 PM [...] Procedure Component Value - Date/Time Gram Stain [[id number]] Collected: 03/12/21 1546 Lab Status: Final result Specimen: Peritoneal Fluid Updated: 03/12/21 1822 Gram Stain No organisms seen. White blood cells present. Stain performed on concentrated cytospin preparation. Bacterial Culture, Anaerobic + Susc [[id number]] Collected: 03/12/21 1546 Lab Status: In process Specimen: Peritoneal Fluid Updated: 03/12/21 1548 Bacterial Culture, Aerobic + Susc [[id number]] Collected: 03/12/21 1546 Lab Status: Preliminary result Specimen: Peritoneal Fluid Updated: 03/13/21 1129 Bacterial Culture, Aerobic + Susc No growth to date Bacterial Culture, Aerobic + Susc [[id number]] Collected: 03/12/21 1234 Lab Status: Preliminary result Specimen: Pleural Fluid, Right Updated: 03/13/21 1133 Bacterial Culture, Aerobic + Susc No growth to date Bacterial Culture, Anaerobic + Susc [[id number]] Collected: 03/12/21 1234 Lab Status: In process Specimen: Pleural Fluid, Right Updated: 03/12/21 1308 Gram Stain [[id number]] Collected: 03/12/21 1234 Lab Status: Final result Specimen: Pleural Fluid, Right Updated: 03/12/21 1646 Gram Stain No organisms seen. White blood cells present. Stain performed on concentrated cytospin preparation. Gram Stain [[id number]] Collected: 03/12/21 1234 Lab Status: No result Specimen: Pleural Fluid, Right SARS Coronavirus-2 RNA, V Symptomatic [[id number]] Collected: 03/12/21 1100 Lab Status: Final result [...] was performed using the Aptima SARS-CoV-2 assay ([employer] on the [employer] System under emergency use authorization (EUA) by the U.S. Food and Drug Administration. Fact sheets for this EUA assay can be found at the following links: For Healthcare Providers: https://www.fda.gov/media/727520/download For Patients: https://www.fda.gov/media/235745/download Influenza A/B and RSV, PCR, Varies [[id number]] Collected: 03/12/21 1100 Lab Status: Final result Specimen: Varies from Nasopharynx Updated: 03/13/21 1155 Influenza A/B and RSV, Source Swab, Nasopharynx Influenza A, PCR Undetected Comment: Influenza A RNA absent. Influenza B, PCR Undetected Comment: Influenza B RNA absent. Respiratory Syncytial Virus, PCR Undetected Comment: RSV RNA absent. ----ADDITIONAL INFORMATION---- This test has been modified from the director of retail merchandising's instructions. Its performance characteristics were determined by [facility] in a manner consistent with CLIA requirements. This test has not been cleared or approved by the U.S. Food and Drug Administration. Bacteria / Raudel Culture, Blood #2 [[id number]] Collected: 03/12/21 0710 Lab Status: Preliminary result Specimen: Blood, Peripheral Draw Updated: 03/13/21 0805 Bacteria/Raudel Culture, Blood No growth to date. MRSA PCR, Nasal [[id number]] Collected: 03/12/21 0623 Lab Status: Final result Specimen: Swab from Nares Updated: 03/12/21 1050 MRSA Screen, Nasal by PCR Negative Hepatitis B Surface Antigen [[id number]] Collected: 03/12/21557 Lab Status: Final result Specimen: Blood, Peripheral Draw Updated: 03/12/21 0744 HBs Antigen, S Nonreactive Comment: Biotin has been identified by the director of retail merchandising as a potential interfering substance. Higher concentrations of biotin may be found in multivitamins, hair/nail supplements, and workout supplements. If the result does not match clinical observations, repeat testing after patient refrains from the use of supplements for at least 12 hours. Hepatitis B Core IgM Ab [[id number]] Collected: 03/12/21557 Lab Status: Final result Specimen: Blood, Peripheral Draw Updated: 03/13/21911 HBc IgM Ab, S Negative Hepatitis A IgM Ab, Serum [[id number]] Collected: 03/12/21557 Lab Status: Final result Specimen: Blood, Peripheral Draw Updated: 03/13/21950 Hepatitis A IgM Ab, S Negative Comment: Result does not exclude the possibility of exposure to hepatitis A virus. Antibody level during early infection stage may be below the limit of detection of the assay. HCV Ab w/Reflex to HCV PCR, Serum [[id number]] Collected: 03/12/21557 Lab Status: Final result Specimen: Blood, Peripheral Draw Updated: 03/13/21924 HCV Ab, S Negative Comment: Rvpqpu-da-hjkelt ratio is <1.00. Bacteria / Raudel Culture, Blood #1 [[id number]] Collected: 03/12/21556 Lab Status: Preliminary result Specimen: [...] care time 35 min Lizet Navarro M.D. CE SUPPORT ASSISTANT Kerry Naranjo, YARITZA, C.N.P., M.S.N. - 03/15/2021 12:41 PM CST SUBJECTIVE Catia Carias reports having no nausea, vomiting and abdominal pain. Her symptoms are improving.She no longer is intubated, with extubated yesterday afternoon. Discussed with her need for follow-up in the GI clinic with seismic prospecting observer; she is interested in that appointment I [...] Naranjo APRN, C.N.P., M.S.N. Gastroenterology and Hepatology [facility] CE SUPPORT ASSISTANT Daron Cochran, DSuma, R.Ph. - 03/15/2021 9:05 [...] Procedure Component Value - Date/Time Gram Stain [[id number]] Collected: 03/12/211545 Lab Status: Final result Specimen: Peritoneal Fluid Updated: 03/12/21 182 Gram Stain No organisms seen. White blood cells present. Stain performed on concentrated cytospin preparation. Bacterial Culture, Anaerobic + Susc [[id number]] Collected: 03/12/21 154 Lab Status: Preliminary result Specimen: Peritoneal Fluid Updated: 03/14/21 0523 Bacterial Culture, Anaerobic No growth to date. Bacterial Culture, Aerobic + Susc [[id number]] Collected: 03/12/21 1546 Lab Status: Preliminary result Specimen: Peritoneal Fluid Updated: 03/13/21 1129 Bacterial Culture, Aerobic + Susc No growth to date Bacterial Culture, Aerobic + Susc [[id number]] Collected: 03/12/21 1234 Lab Status: Preliminary result Specimen: Pleural Fluid, Right Updated: 03/13/21 1133 Bacterial Culture, Aerobic + Susc No growth to date Bacterial Culture, Anaerobic + Susc [[id number]] Collected: 03/12/214 Lab Status: Preliminary result Specimen: Pleural Fluid, Right Updated: 03/14/21 0523 Bacterial Culture, Anaerobic No growth to date. Gram Stain [[id number]] Collected: 03/12/211233 Lab Status: Final result Specimen: Pleural Fluid, Right Updated: 03/12/21 1646 Gram Stain No organisms seen. White blood cells present. Stain performed on concentrated cytospin preparation. Gram Stain [[id number]] Collected: 03/12/211233 Lab Status: No result Specimen: Pleural Fluid, Right SARS Coronavirus-2 RNA, V Symptomatic [[id number]] Collected: 03/12/21 1100 Lab Status: Final result [...] was performed using the Aptima SARS-CoV-2 assay ([employer] on the [employer] System under emergency use authorization (EUA) by the U.S. Food and Drug Administration. Fact sheets for this EUA assay can be found at the following links: For Healthcare Providers: https://www.fda.gov/media/019550/download For Patients: https://www.fda.gov/media/133407/download Influenza A/B and RSV, PCR, Varies [[id number]] Collected: 03/12/21 1100 Lab Status: Final result Specimen: Varies from Nasopharynx Updated: 03/13/21 1155 Influenza A/B and RSV, Source Swab, Nasopharynx Influenza A, PCR Undetected Comment: Influenza A RNA absent. Influenza B, PCR Undetected Comment: Influenza B RNA absent. Respiratory Syncytial Virus, PCR Undetected Comment: RSV RNA absent. ----ADDITIONAL INFORMATION---- This test has been modified from the director of retail merchandising's instructions. Its performance characteristics were determined by [facility] in a manner consistent with CLIA requirements. This test has not been cleared or approved by the U.S. Food and Drug Administration. Bacteria / Raudel Culture, Blood #2 [[id number]] Collected: 03/12/21709 Lab Status: Preliminary result Specimen: Blood, Peripheral Draw Updated: 03/15/21804 Bacteria/Raudel Culture, Blood No growth to date. MRSA PCR, Nasal [[id number]] Collected: 03/12/21622 Lab Status: Final result Specimen: Swab from Nares Updated: 03/12/21 105 MRSA Screen, Nasal by PCR Negative Hepatitis B Surface Antigen [[id number]] Collected: 03/12/21557 Lab Status: Final result Specimen: Blood, Peripheral Draw Updated: 03/12/21743 HBs Antigen, S Nonreactive Comment: Biotin has been identified by the director of retail merchandising as a potential interfering substance. Higher concentrations of biotin may be found in multivitamins, hair/nail supplements, and workout supplements. If the result does not match clinical observations, repeat testing after patient refrains from the use of supplements for at least 12 hours. Hepatitis B Core IgM Ab [[id number]] Collected: 03/12/21557 Lab Status: Final result Specimen: Blood, Peripheral Draw Updated: 03/13/21911 HBc IgM Ab, S Negative Hepatitis A IgM Ab, Serum [[id number]] Collected: 03/12/21557 Lab Status: Final result Specimen: Blood, Peripheral Draw Updated: 03/13/21950 Hepatitis A IgM Ab, S Negative Comment: Result does not exclude the possibility of exposure to hepatitis A virus. Antibody level during early infection stage may be below the limit of detection of the assay. HCV Ab w/Reflex to HCV PCR, Serum [[id number]] Collected: 03/12/21557 Lab Status: Final result Specimen: Blood, Peripheral Draw Updated: 03/13/21924 HCV Ab, S Negative Comment: Qclxel-ty-gdltyr ratio is <1.00. Bacteria / Raudel Culture, Blood #1 [[id number]] Collected: 03/12/21556 Lab Status: Preliminary result Specimen: [...] at discharge: TBD Virginie Valerio, Pharm.D., R.Ph. CE SUPPORT ASSISTANT Lizet Nvaarro M.D. - 03/14/2021 12:10 PM CST SUBJECTIVE [...] Procedure Component Value - Date/Time Gram Stain [[id number]] Collected: 03/12/211545 Lab Status: Final result Specimen: Peritoneal Fluid Updated: 03/12/211821 Gram Stain No organisms seen. White blood cells present. Stain performed on concentrated cytospin preparation. Bacterial Culture, Anaerobic + Susc [[id number]] Collected: 03/12/21 1546 Lab Status: In process Specimen: Peritoneal Fluid Updated: 03/12/21 154 Bacterial Culture, Aerobic + Susc [[id number]] Collected: 03/12/21 1546 Lab Status: Preliminary result Specimen: Peritoneal Fluid Updated: 03/13/21 1129 Bacterial Culture, Aerobic + Susc No growth to date Bacterial Culture, Aerobic + Susc [[id number]] Collected: 03/12/21 1234 Lab Status: Preliminary result Specimen: Pleural Fluid, Right Updated: 03/13/21 1133 Bacterial Culture, Aerobic + Susc No growth to date Bacterial Culture, Anaerobic + Susc [[id number]] Collected: 03/12/21 1234 Lab Status: In process Specimen: Pleural Fluid, Right Updated: 03/12/21 1308 Gram Stain [[id number]] Collected: 03/12/21 123 Lab Status: Final result Specimen: Pleural Fluid, Right Updated: 03/12/21 1646 Gram Stain No organisms seen. White blood cells present. Stain performed on concentrated cytospin preparation. Gram Stain [[id number]] Collected: 03/12/21 123 Lab Status: No result Specimen: Pleural Fluid, Right SARS Coronavirus-2 RNA, V Symptomatic [[id number]] Collected: 03/12/21 1100 Lab Status: Final result [...] was performed using the Aptima SARS-CoV-2 assay ([employer] on the [employer] System under emergency use authorization (EUA) by the U.S. Food and Drug Administration. Fact sheets for this EUA assay can be found at the following links: For Healthcare Providers: https://www.fda.gov/media/930735/download For Patients: https://www.fda.gov/media/728240/download Influenza A/B and RSV, PCR, Varies [[id number]] Collected: 03/12/21 1100 Lab Status: Final result Specimen: Varies from Nasopharynx Updated: 03/13/21 1155 Influenza A/B and RSV, Source Swab, Nasopharynx Influenza A, PCR Undetected Comment: Influenza A RNA absent. Influenza B, PCR Undetected Comment: Influenza B RNA absent. Respiratory Syncytial Virus, PCR Undetected Comment: RSV RNA absent. ----ADDITIONAL INFORMATION---- This test has been modified from the director of retail merchandising's instructions. Its performance characteristics were determined by [facility] in a manner consistent with CLIA requirements. This test has not been cleared or approved by the U.S. Food and Drug Administration. Bacteria / Raudel Culture, Blood #2 [[id number]] Collected: 03/12/21709 Lab Status: Preliminary result Specimen: Blood, Peripheral Draw Updated: 03/13/21804 Bacteria/Raudel Culture, Blood No growth to date. MRSA PCR, Nasal [[id number]] Collected: 03/12/21622 Lab Status: Final result Specimen: Swab from Nares Updated: 03/12/21 105 MRSA Screen, Nasal by PCR Negative Hepatitis B Surface Antigen [[id number]] Collected: 03/12/21557 Lab Status: Final result Specimen: Blood, Peripheral Draw Updated: 03/12/21743 HBs Antigen, S Nonreactive Comment: Biotin has been identified by the director of retail merchandising as a potential interfering substance. Higher concentrations of biotin may be found in multivitamins, hair/nail supplements, and workout supplements. If the result does not match clinical observations, repeat testing after patient refrains from the use of supplements for at least 12 hours. Hepatitis B Core IgM Ab [[id number]] Collected: 03/12/21557 Lab Status: Final result Specimen: Blood, Peripheral Draw Updated: 03/13/21911 HBc IgM Ab, S Negative Hepatitis A IgM Ab, Serum [[id number]] Collected: 03/12/21557 Lab Status: Final result Specimen: Blood, Peripheral Draw Updated: 03/13/21950 Hepatitis A IgM Ab, S Negative Comment: Result does not exclude the possibility of exposure to hepatitis A virus. Antibody level during early infection stage may be below the limit of detection of the assay. HCV Ab w/Reflex to HCV PCR, Serum [[id number]] Collected: 03/12/21557 Lab Status: Final result Specimen: Blood, Peripheral Draw Updated: 03/13/21924 HCV Ab, S Negative Comment: Myqlrf-qq-fxuuas ratio is <1.00. Bacteria / Raudel Culture, Blood #1 [[id number]] Collected: 03/12/21556 Lab Status: Preliminary result Specimen: [...] care time 35 min Lizet Navarro M.D. CE SUPPORT ASSISTANT Kerry Naranjo APRN, C.N.P., M.S.N. - 03/14/2021 [...] Naranjo APRN, C.N.P., M.S.N. Gastroenterology and Hepatology [facility] CE SUPPORT ASSISTANT Associated attestation - Leslie Hawk M.D. - 03/14/2021 1:07 PM OFFICE SUPPORT ASSISTANT This is a supervisory note for gastroenterology [...] ceruloplasmin, I have discussed her case with seismic prospecting observer, since patient is anuric currently, we will [...] Procedure Component Value - Date/Time Gram Stain [[id number]] Collected: 03/12/21 1542 Lab Status: Final result Specimen: Peritoneal Fluid Updated: 03/12/21 1822 Gram Stain No organisms seen. White blood cells present. Stain performed on concentrated cytospin preparation. Bacterial Culture, Anaerobic + Susc [[id number]] Collected: 03/12/21 1546 Lab Status: Preliminary result Specimen: Peritoneal Fluid Updated: 03/14/21 0523 Bacterial Culture, Anaerobic No growth to date. Bacterial Culture, Aerobic + Susc [[id number]] Collected: 03/12/21 1546 Lab Status: Preliminary result Specimen: Peritoneal Fluid Updated: 03/13/21 1129 Bacterial Culture, Aerobic + Susc No growth to date Bacterial Culture, Aerobic + Susc [[id number]] Collected: 03/12/21 1234 Lab Status: Preliminary result Specimen: Pleural Fluid, Right Updated: 03/13/21 1133 Bacterial Culture, Aerobic + Susc No growth to date Bacterial Culture, Anaerobic + Susc [[id number]] Collected: 03/12/21 1234 Lab Status: Preliminary result Specimen: Pleural Fluid, Right Updated: 03/14/21 0523 Bacterial Culture, Anaerobic No growth to date. Gram Stain [[id number]] Collected: 03/12/21 1234 Lab Status: Final result Specimen: Pleural Fluid, Right Updated: 03/12/21 1646 Gram Stain No organisms seen. White blood cells present. Stain performed on concentrated cytospin preparation. Gram Stain [[id number]] Collected: 03/12/21 1234 Lab Status: No result Specimen: Pleural Fluid, Right SARS Coronavirus-2 RNA, V Symptomatic [[id number]] Collected: 03/12/21 1100 Lab Status: Final result [...] was performed using the Aptima SARS-CoV-2 assay ([employer] on the [employer] System under emergency use authorization (EUA) by the U.S. Food and Drug Administration. Fact sheets for this EUA assay can be found at the following links: For Healthcare Providers: https://www.fda.gov/media/105286/download For Patients: https://www.fda.gov/media/909251/download Influenza A/B and RSV, PCR, Varies [[id number]] Collected: 03/12/21 1100 Lab Status: Final result Specimen: Varies from Nasopharynx Updated: 03/13/21 1155 Influenza A/B and RSV, Source Swab, Nasopharynx Influenza A, PCR Undetected Comment: Influenza A RNA absent. Influenza B, PCR Undetected Comment: Influenza B RNA absent. Respiratory Syncytial Virus, PCR Undetected Comment: RSV RNA absent. ----ADDITIONAL INFORMATION---- This test has been modified from the director of retail merchandising's instructions. Its performance characteristics were determined by [facility] in a manner consistent with CLIA requirements. This test has not been cleared or approved by the U.S. Food and Drug Administration. Bacteria / Raudel Culture, Blood #2 [[id number]] Collected: 03/12/21 0710 Lab Status: Preliminary result Specimen: Blood, Peripheral Draw Updated: 03/14/21 0805 Bacteria/Raudel Culture, Blood No growth to date. MRSA PCR, Nasal [[id number]] Collected: 03/12/21 0623 Lab Status: Final result Specimen: Swab from Nares Updated: 03/12/21 1050 MRSA Screen, Nasal by PCR Negative Hepatitis B Surface Antigen [[id number]] Collected: 03/12/21557 Lab Status: Final result Specimen: Blood, Peripheral Draw Updated: 03/12/21 0744 HBs Antigen, S Nonreactive Comment: Biotin has been identified by the director of retail merchandising as a potential interfering substance. Higher concentrations of biotin may be found in multivitamins, hair/nail supplements, and workout supplements. If the result does not match clinical observations, repeat testing after patient refrains from the use of supplements for at least 12 hours. Hepatitis B Core IgM Ab [[id number]] Collected: 03/12/21557 Lab Status: Final result Specimen: Blood, Peripheral Draw Updated: 03/13/21 0912 HBc IgM Ab, S Negative Hepatitis A IgM Ab, Serum [[id number]] Collected: 03/12/21557 Lab Status: Final result Specimen: Blood, Peripheral Draw Updated: 03/13/21 09 Hepatitis A IgM Ab, S Negative Comment: Result does not exclude the possibility of exposure to hepatitis A virus. Antibody level during early infection stage may be below the limit of detection of the assay. HCV Ab w/Reflex to HCV PCR, Serum [[id number]] Collected: 03/12/21557 Lab Status: Final result Specimen: Blood, Peripheral Draw Updated: 03/13/21924 HCV Ab, S Negative Comment: Zayxah-jo-iqjvbf ratio is <1.00. Bacteria / Raudel Culture, Blood #1 [[id number]] Collected: 03/12/2157 Lab Status: Preliminary result Specimen: [...] anticipated at discharge: TBSlick Valerio, Pharm.D., R.Ph. CE SUPPORT ASSISTANT Silvestre Stevens, R.R.T. - 03/14/2021 9:31 AM [...] extubated to 4 lpm per nasal canula CE SUPPORT ASSISTANT Adry Reyes - 03/14/2021 4:20 AM CST [...] signed by: Adry Reyes 03/14/21 4:21 AM OFFICE SUPPORT ASSISTANT CE SUPPORT ASSISTANT Tariq Marcano M.B.B.S. - 03/13/2021 7:04 PM [...] Procedure Component Value - Date/Time Gram Stain [[id number]] Collected: 03/12/21 1546 Lab Status: Final result Specimen: Peritoneal Fluid Updated: 03/12/21 1822 Gram Stain No organisms seen. White blood cells present. Stain performed on concentrated cytospin preparation. Bacterial Culture, Anaerobic + Susc [[id number]] Collected: 03/12/21 1546 Lab Status: In process Specimen: Peritoneal Fluid Updated: 03/12/21 1548 Bacterial Culture, Aerobic + Susc [[id number]] Collected: 03/12/21 1546 Lab Status: Preliminary result Specimen: Peritoneal Fluid Updated: 03/13/21 1129 Bacterial Culture, Aerobic + Susc No growth to date Bacterial Culture, Aerobic + Susc [[id number]] Collected: 03/12/21 1234 Lab Status: Preliminary result Specimen: Pleural Fluid, Right Updated: 03/13/21 1133 Bacterial Culture, Aerobic + Susc No growth to date Bacterial Culture, Anaerobic + Susc [[id number]] Collected: 03/12/21 1234 Lab Status: In process Specimen: Pleural Fluid, Right Updated: 03/12/21 1308 Gram Stain [[id number]] Collected: 03/12/21 1234 Lab Status: Final result Specimen: Pleural Fluid, Right Updated: 03/12/21 1646 Gram Stain No organisms seen. White blood cells present. Stain performed on concentrated cytospin preparation. Gram Stain [[id number]] Collected: 03/12/21 1234 Lab Status: No result Specimen: Pleural Fluid, Right SARS Coronavirus-2 RNA, V Symptomatic [[id number]] Collected: 03/12/21 1100 Lab Status: Final result [...] was performed using the Aptima SARS-CoV-2 assay ([employer] on the [employer] System under emergency use authorization (EUA) by the U.S. Food and Drug Administration. Fact sheets for this EUA assay can be found at the following links: For Healthcare Providers: https://www.fda.gov/media/960111/download For Patients: https://www.fda.gov/media/432830/download Influenza A/B and RSV, PCR, Varies [[id number]] Collected: 03/12/21 1100 Lab Status: Final result Specimen: Varies from Nasopharynx Updated: 03/13/21 1155 Influenza A/B and RSV, Source Swab, Nasopharynx Influenza A, PCR Undetected Comment: Influenza A RNA absent. Influenza B, PCR Undetected Comment: Influenza B RNA absent. Respiratory Syncytial Virus, PCR Undetected Comment: RSV RNA absent. ----ADDITIONAL INFORMATION---- This test has been modified from the director of retail merchandising's instructions. Its performance characteristics were determined by [facility] in a manner consistent with CLIA requirements. This test has not been cleared or approved by the U.S. Food and Drug Administration. Bacteria / Raudel Culture, Blood #2 [[id number]] Collected: 03/12/21 0710 Lab Status: Preliminary result Specimen: Blood, Peripheral Draw Updated: 03/13/21 0805 Bacteria/Raudel Culture, Blood No growth to date. MRSA PCR, Nasal [[id number]] Collected: 03/12/21 0623 Lab Status: Final result Specimen: Swab from Nares Updated: 03/12/21 1050 MRSA Screen, Nasal by PCR Negative Hepatitis B Surface Antigen [[id number]] Collected: 03/12/21 0558 Lab Status: Final result Specimen: Blood, Peripheral Draw Updated: 03/12/21 0744 HBs Antigen, S Nonreactive Comment: Biotin has been identified by the director of retail merchandising as a potential interfering substance. Higher concentrations of biotin may be found in multivitamins, hair/nail supplements, and workout supplements. If the result does not match clinical observations, repeat testing after patient refrains from the use of supplements for at least 12 hours. Hepatitis B Core IgM Ab [[id number]] Collected: 03/12/21557 Lab Status: Final result Specimen: Blood, Peripheral Draw Updated: 03/13/21911 HBc IgM Ab, S Negative Hepatitis A IgM Ab, Serum [[id number]] Collected: 03/12/21557 Lab Status: Final result Specimen: Blood, Peripheral Draw Updated: 03/13/21950 Hepatitis A IgM Ab, S Negative Comment: Result does not exclude the possibility of exposure to hepatitis A virus. Antibody level during early infection stage may be below the limit of detection of the assay. HCV Ab w/Reflex to HCV PCR, Serum [[id number]] Collected: 03/12/21557 Lab Status: Final result Specimen: Blood, Peripheral Draw Updated: 03/13/21924 HCV Ab, S Negative Comment: Wpsene-dl-aiepyy ratio is <1.00. Bacteria / Raudel Culture, Blood #1 [[id number]] Collected: 03/12/21556 Lab Status: Preliminary result Specimen: [...] 32 minutes. I personally discussed with the wine steward on-call Tyrell Wright CE SUPPORT ASSISTANT Criselda Maurer R.R.T., L.R.T. - 03/13/2021 6:09 [...] ART 30 L PH ART 7.46 H CE SUPPORT ASSISTANT Kerry Naranjo, YARITZA, C.N.P., MSumaS.N. - 03/13/2021 [...] Naranjo APRN, C.N.P., M.S.N. Gastroenterology and Hepatology [facility] CE SUPPORT ASSISTANT Associated attestation - Leslie Hawk M.D. - 03/13/2021 2:43 PM OFFICE SUPPORT ASSISTANT This is a supervisory note for gastroenterology [...] 1 gm x1 given 03/12 ?? Per exchange trouble shooter, plan for 5 days of broad spectrums [...] at discharge: TBD Virginie Valerio, Pharm.D., R.Ph. CE SUPPORT ASSISTANT Sridhar Trevino, R.R.T. - 03/13/2021 6:29 AM CST 2000-Pt seen this evening with 7.5 ETT, secured 22cm @ teeth. Pt on kincaid ventilator SCMV 18/320/+12/40% SpO2: 99% Breath Sounds/Secretions: clear/dim, suctioning out small white/yellow secretions. Pt tolerating ventilator well RT to follow CE SUPPORT ASSISTANT Virginie Valerio, R.Ph. - 03/12/2021 10:18 AM [...] at discharge: TBD Virginie Valerio, Pharm.D., R.Ph. CE SUPPORT ASSISTANT Shahida Brito R.RMerlin., L.R.T. - 03/12/2021 10:14 AM CST Pt was intubated with 7.5 ETT placed at 22@ teeth. Tube placement confirmed with bilateral breath sounds and positive ETCO2. She was placed on the ventilator at volume control 20/300/+8/40%. CE SUPPORT ASSISTANT documented in this encounter H&P Notes Ivan [...] again had likely had a consultation with [facility] and will request records from their [...] from lines of procedures was 60 minutes CE SUPPORT ASSISTANT documented in this encounter Procedure Notes Barrera [...] slight turn: yes Complications - arterial: none CE SUPPORT ASSISTANT Barrera To M.D. - 03/12/2021 6:02 PM [...] ETT location: oral VL device: glide scope Elk scope blade size: 3 Adult tube size: [...] right mid-axillary Intercostal space: 3rd Puncture method: ggpy-svw-nzckhi catheter Number of attempts: 1 Drainage characteristics: [...] completed successfully: yes Complications: no apparent complications CE SUPPORT ASSISTANT documented in this encounter Consult Notes Ciara Stewart L.G.S.W. - 03/21/2021 2:09 PM CST Diagnostic Assessment SUBJECTIVE DEMOGRAPHIC INFORMATION Referral Source: CM/ Referral Referral Reason: Psychosocial assessment,Coping, adjustment and support,Discharge Planning Discharge Planning: (to be determined) Person(s) present during interview: Lobito Rosenthal Primary care clinic and provider: ELSEWHERE, PCP, Patient reported Dr. Roge Hernandez, [facility] and [facility] to be her primary Doctor Primary Language: Monegasque Densitometer Reader Services Used: No Legal Information: Voluntary Citizenship: [...] Support System: Significant other,Parent,Family members Spirituality / Church / Culture: , patient was raised [employer]ism but does not currently attend congregation. 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 ASSISTIVE DEVICES Patient has the following equipment: Eyeglasses,Contacts Patient anticipates potentially needing the following additional equipment: None Transportation needs: Support from family MOLDED CANDLES WICKER Caregiver Name: Lobito Brunson Caregiver Relationship: Significant other Caregiver FINANCES/INSURANCE Primary insurance: [employer] Secondary insurance: N/A Income Information Does the Patient have any Financial Concerns?: Yes Income Source: Parent/primary caregiver employmen Income/Expense Information: Income meets expenses ADVANCE DIRECTIVES The patient does not currently have an advance directive on file. LEGAL HISTORY Review of the [place] Trial Court Public Access Website ([email or web address] shows no past or current criminal charges. [...] side effects. Patient works with Dr. Hernandez, [facility] and [facility], for medication management and support. Thepatient reported [...] Intact Suicide Risk and Safety Risk Assessment: [place] Suicide Risk Severity Scale (C-SSRS)Lifetime/Recent 03/21/21 1400 [...] active suicidal and homicidal ideation. Lifetime/Recent: The [place] Suicide Severity Rating Scale (C-SSRS) Lifetime/Recent screening [...] in sustained remission INTERVENTIONS 1. Inpatient clinical case management social worker completed a diagnostic assessment in response to a chemical dependency order placed by Keerthi Guzman (ordering hospitalist). 2. pulley worker engaged the patient in Solution Focused Brief Therapy and Motivational Interviewingutilizing scaling questions and process questions and rapport building, empathetic communication, open ended questioning, summarizing and reflection to complete the assessment process. pulley worker recommended patient continue to follow direction of inpatient medical and mental health team to determine best plan of care for patient. Rule 25 assessment discussed with patient, however based on this rewriter's assessment and patient's disclosure, patient reports no [...] chemical health assessment or Rule 25. 5. pulley worker engaged in safety planning conversation. a. [...] medical and mental health treatment team. 2. pulley worker will continue to assist as needed [...] 50 minutes total time. Danny Newton 03/21/2021 CE SUPPORT ASSISTANT Jean Paul M.D., M.P.H. - 03/21/2021 12:07 [...] sitting in bed, eyes rolled back. RESEARCH PHYSIOLOGIST called for help and upon RN entering room, noted pts arms tensing and shaking. CLINICAL PHLEBOTOMIST paged right away. VSS. Pt appearing sleepy upon rewriter entering room and then after a couple [...] Plantar Response: R flexor L flexor Coordination: Qhspyx-Tjul-Vfnyma: Intact b/l ASSESSMENT / PLAN Patient Active [...] the date of the encounter. Time included rmrz-ps-pfyg interview and evaluation, counseling the patient, reviewing records, reviewing relevant diagnostic tests, ordering tests, documenting clinical information in the electronic records and communicating with other p roviders. PATIENT EDUCATION Ready to learn, no apparent learning barriers were identified; learning preferences include listening. Explained diagnosis and treatment plan; patient expressed understanding of the content. CE SUPPORT ASSISTANT Sivakumar Reyes M.D. 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 We placed a [id number] suture around the paracentesis site. [facility] of the ICU team. Procedure: 5 mL of 1% lidocaine were injected around the paracentesis site. A 2 0 Vicryl suture was used to place the a pvakzh-[id number] stitch around the paracentesis site This was [...] clinic and provider: ELSEWHERE, PCP Primary Language: Monegasque Densitometer Reader Services Used: No Legal Information: Legal Decision [...] so this writercontacted the patient's mother Parris ([phone]) to complete a psychosocial assessment and to [...] Support System: Significant other,Parent,Family members Spirituality / Church / Culture: , patient was raised [employer]ism but does not currently attend congregation. 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 ASSISTIVE DEVICES Patient has the following equipment: Eyeglasses,Contacts Patient anticipates potentially needing the following additional equipment: None Transportation needs: Support from family SERVICES REQUESTED None MOLDED CANDLES WICKER Formal and Informal Resources: Caregiver Name: Lobito Brunson Caregiver Relationship: Significant other Caregiver FINANCES/INSURANCE Primary insurance: [employer] Secondary insurance: N/A Income Information Does the [...] Suicide Risk and Safety Risk Assessment: The [place] Suicide Risk Severity Scale (C-SSRS) was unable [...] extended family/friends ASSESSMENT / PLAN IMPRESSION This rewriter completed a psychosocial assessment of the patient [...] work at this time but thanked this rewriter for the call. INTERVENTIONS 1. Psychosocial assessment completed. 2. Provided supportive services. 3. Provided education regarding the role of social work. 4. Provided education regarding referral resources and options. PLAN 1. Social Work will continue to follow and assist as needed or requested. Anticipated barriers to the transition of care/plan: None Светлана Guillen 03/13/2021 CE SUPPORT ASSISTANT Sera Morgan P.A.-C. - 03/12/2021 12:50 PM [...] of cirrhosis with ascites who presents from [facility] being found unresponsive and incontinent at home. [...] (A) Bilirubin Moderate (A) pH 6.0 Specific [place] 1.016 Urobilinogen 1.0 MRSA PCR, Nasal Collection [...] plan at this time. Sera Morgan P.A.-C. CE SUPPORT ASSISTANT Associated attestation - Leslie Hawk M.D. - 03/12/2021 2:37 PM OFFICE SUPPORT ASSISTANT This is a supervisory note for gastroenterology [...] answered. All belongings sent home with patient. CE SUPPORT ASSISTANT Bernardo Rosario R.N. - 03/24/2021 4:20 AM [...] of care to be continued by oncomingnurse. CE SUPPORT ASSISTANT Hope Guerrier R.N. - 03/23/2021 4:32 PM [...] of blood today. Will continue withcurrent POC. CE SUPPORT ASSISTANT Lisa Stinson R.N. - 03/23/2021 5:50 AM [...] Patient denies pain. Will continue to monitor. CE SUPPORT ASSISTANT Carol Rodriguez R.N. - 03/22/2021 11:06 PM CST Shift Goals: Clinical Goals for the Shift: Patient will remain free from falls and get adequate rest Identify possible barriers to meeting goals/advancing plan of care: None End of Shift Summary: Patient slept intermittently throughout the shift and took a couple walks in the halls with the RESEARCH PHYSIOLOGIST today. Pt reported having no abdominal pain [...] Response Team call for Anxiety,Agitation, at [facility]. I have reviewed the medical records, spoke with the patient's nurse, and met with the patient in person. Follow-Up Assessment: Sealing And Canceling Machine Operator met with patient assigned nurse. Patient nurse [...] free to contact the MARILUZ RN at [phone], or in an emergent situation by activating the MARIL[facility]Z team through the hospital router operator pin by dialing 201. CE SUPPORT ASSISTANT Nola Frederick - 03/22/2021 4:49 AM CST [...] melatonin and Zyprexa not given until 0100. CE SUPPORT ASSISTANT Yajaira Faulkner RSumaNSuma - 03/21/2021 2:40 PM [...] plan for eeg today Interventions: remove from pipelines superintendent list Recommendations for primary RN: call for [...] nurse: Encouraged primary RN to call CLINICAL PHLEBOTOMIST with questions, concerns, or if patient condition [...] Continue to monitor mental status, call CLINICAL PHLEBOTOMIST with any concerns Rapid RN will continue to monitor for: Will monitor for seizure like activity Patient Disposition: has improved Rapid RN following prior to transfer to higher level of care, if applicable: Offered debrief to primary nurse: Encouraged primary RN to call CLINICAL PHLEBOTOMIST with questions, concerns, or if patient condition [...] labs. Will continue with plan of care. CE SUPPORT ASSISTANT Priscilla Morelos R.N. - 03/20/2021 11:03 PM [...] sitting in bed, eyes rolled back. RESEARCH PHYSIOLOGIST called for help and upon RN entering room,noted pts arms tensing and shaking. CLINICAL PHLEBOTOMIST paged right away. VSS. Pt appearing sleepy upon rewriter entering room and then after a couple [...] HS, had 4bms today. Continue to monitor. CE SUPPORT ASSISTANT Tia Abbasi R.N. - 03/20/2021 10:38 PM CST [facility] Follow up: This is a follow up to the Behavioral Emergency Response Team call for Anxiety,Agitation, at [facility]. I have reviewed the medical records, spoke [...] free to contact the MARILUZ RN at [phone], or in an emergent situation by activating the MARIL[facility]Z team through the hospital router operator pin by dialing 201. CE SUPPORT ASSISTANT Grazyna Barroso RSumaN. - 03/20/2021 2:34 PM [...] Vitals remain stable, continue plan of care. CE SUPPORT ASSISTANT Cathie Rae RSumaN. - 03/20/2021 1:34 PM CST [facility] Follow up: This is a follow up to the Behavioral Emergency Response Team call for Anxiety,Agitation, at [facility]. I have reviewed the medical records, spoke [...] free to contact the MARILUZ RN at [phone], or in an emergent situation by activating the MARILUZ team through the hospital router operator pin by dialing 201. CE SUPPORT ASSISTANT Tia Abbasi R.N. - 03/20/2021 6:49 AM CST [facility] Follow up: This is a follow up to the Behavioral Emergency Response Team call for Anxiety,Agitation, at [facility]. I have reviewed the medical records, spoke with the patient's nurse, and met with the patient in person. Follow-Up Assessment: No MRAILUZ calls this shift. Will continue to follow. Follow-Up: ?? The MARILUZ RN will follow up during their next rounds on the day shift. If there are any questions or concerns, please feel free to contact the MARILUZ RN at [phone], or in an emergent situation by activating the MARIL[facility]Z team through the hospital router operator pin by dialing 201. CE SUPPORT ASSISTANT Juan Palacios R.N. - 03/20/2021 4:14 AM [...] Response Team call for Anxiety,Agitation, at [facility]. I have reviewed the medical records, spoke with the patient's nurse, and met with the patient in person. Follow-Up Assessment: No requests for mariluz interventions today. Follow-Up: ?? The MARILUZ RN will follow up during their rounds on the evening shift. If there are any questions or concerns, please feel free to contact the MARILUZ RN at [phone], or in an emergent situation by activating the [facility] team through the hospital router operator pin by dialing 201. Grazyna Salazar R.N. - [...] by: Virginie Stahl R.N. 03/19/21 7:38 AM OFFICE SUPPORT ASSISTANT CE SUPPORT ASSISTANT Criselda He R.N. - 03/18/2021 6:56 PM [...] 30 y.o. female admitted to the [facility] for Change Mental Status Sealing And Canceling Machine Operator called to pt room due to increased anxious behavior. Pt had refused her lactulose several times recently. Sealing And Canceling Machine Operator observed while pt received the a dose this afternoon. Her speech was rapid and tangental. Pt became visibly anxious during and after taking the lactulose. Pt began to slur her words and stutter. Pt's pupils were equal, round, and reacted briskly. Motor function/sensation assessment was normal. After other staff left the room rewriter talked with pt for a while and [...] the sister or cousin of a RESEARCH PHYSIOLOGIST. Sealing And Canceling Machine Operator spent time validating pt's feelings and when she was much calmer rewriter cleared from the situation. Individual Assignment prior [...] free to contact the MARILUZ RN at [phone], or in an emergent situation by activating the [facility] team through the hospital router operator pin by dialing 201. CE SUPPORT ASSISTANT Virginie Stahl R.N. - 03/18/2021 4:10 AM [...] by: Virginie Stahl R.N. 03/18/21 6:07 AM OFFICE SUPPORT ASSISTANT CE SUPPORT ASSISTANT Criselda He R.N. - 03/17/2021 5:44 PM [...] at 1445. Will continue plan of care. CE SUPPORT ASSISTANT Nola Frederick - 03/17/2021 5:37 AM CST [...] not call for assistance at any point. CE SUPPORT ASSISTANT Hilda Bower R.N. - 03/16/2021 8:04 PM [...] art line, cont to have 2 PIVs. CE SUPPORT ASSISTANT Ricardo Rosado R.N. - 03/16/2021 4:28 AM [...] grateful. Replaced magnesium, calcium, potassium and phos. CE SUPPORT ASSISTANT Hilda Bower R.N. - 03/15/2021 6:00 PM [...] Has a right IJ and 2 PIVs. CE SUPPORT ASSISTANT Ricardo Rosado R.N. - 03/15/2021 6:34 AM [...] Potassium, Magnesium and phos replaced this shift. CE SUPPORT ASSISTANT Hilda Bower R.N. - 03/14/2021 6:45 PM [...] currently on 25 mcg/kg/min, 0.5 mcg/kg/hr precedex. CE SUPPORT ASSISTANT Diya Weiss R.N. - 03/13/2021 5:05 PM [...] titrated down with MAP goal (>65 per Private Secretary) achieved. Patient appear to have improving mental [...] by: Baldemar Evangelista R.N. 03/13/21 6:36 AM OFFICE SUPPORT ASSISTANT CE SUPPORT ASSISTANT Diya Weiss R.N. - 03/12/2021 3:00 PM [...] pelvis today. No family visiting this shift. Private Secretary updated patient's mother via phone call. CE SUPPORT ASSISTANT Criselda Valentin R.N. - 03/12/2021 6:45 AM CST Pt direct admit from [facility] to room 3411. Pt agitated, moaning, not [...] him to bring her to the ED. CE SUPPORT ASSISTANT documented in this encounter Miscellaneous Notes Hospital [...] of FFP yesterday. She was transferred to [facility] 03/16. -- continue Lactulose titrate [...] the course abx for community acquired pneumonia CE SUPPORT ASSISTANT documented in this encounter Plan of Treatment Upcoming Encounters Date Type Specialty Care Team Description Telemedicine Transplant 2 Appointment Radiology Matthew Jerome 2 Y, VikBLilian Bedolla [address] [place] [phone] Appointment Gastroenterology and [place], 2 Hepatology Yue Burciaga M.D. [address] [place] [address] Virtual Visit Transplant Matthew Jerome 2 Tyrell Rodriguez M.D. [address] [place] [phone] Office Visit Gastroenterology and Matthew Jerome 2 Hepatology Tyrell Rodriguez M.D. [address] [place] [phone] Appointment Radiology Matthew Jerome 2 Tyrell Rodriguez M.D. [address] [place] [phone] Hospital Gastroenterology and [place] Matthew Cirrhos is Alcoholic (HCC) 2 Encounter Hepatology Tyrell Rodriguez M.D. [address] [place] [phone] Anesthesia Event Gastroenterology and lR, 2 Hepatology Ervin Burgos M.D. [address] [place] [phone] Surgery Gastroenterology and Matthew Jerome ESOPHAG OGASTRODUODENOSCOPY 2 Hepatology Joshua RodriguezBSumaBLilian Bedolla [address] [place] [phone] Pending Results Name Type Priority Associated Diagnoses Date/Ti me Prepare Red Blood Cells, 1 Blood Bank Routine 1 05/12/2020 12:59 PM Units OFFICE SUPPORT ASSISTANT Prepare Red Blood Cells, 1 Blood Bank Routine 1 05/12/2020 12:59 PM Units OFFICE SUPPORT ASSISTANT Prepare Red Blood Cells, 1 Blood Bank Routine 1 05/12/2020 12:59 PM Units OFFICE SUPPORT ASSISTANT Prepare Fresh Frozen Blood Bank Routine 12:06 PM Plasma : 2 Units OFFICE SUPPORT ASSISTANT Transfuse Fresh Frozen Blood Bank Routine 03/15 3:52 PM Plasma :Bleeding with OFFICE SUPPORT ASSISTANT altered coagulation; 180 mL/hr, 2 Units Prepare Red Blood Cells, 1 Blood Bank Routine 1 05/12/2020 12:59 PM Units OFFICE SUPPORT ASSISTANT Prepare Fresh Frozen Blood Bank Routine 2:05 AM Plasma : 1 Units OFFICE SUPPORT ASSISTANT Prepare Pooled Blood Bank Routine 03/16/2021 2: 05 AM Cryoprecipitate OFFICE SUPPORT ASSISTANT Prepare Red Blood Cells, 1 Blood Bank STAT 1 05/16/2020 5:44 AM Units OFFICE SUPPORT ASSISTANT Prepare Fresh Frozen Blood Bank STAT 5:44 AM Plasma : 2 Units OFFICE SUPPORT ASSISTANT Prepare Red Blood Cells, 2 Blood Bank STAT 1 05/16/2020 5:44 AM Units OFFICE SUPPORT ASSISTANT Prepare Red Blood Cells, 1 Blood Bank STAT 1 05/16/2020 5:44 AM Units OFFICE SUPPORT ASSISTANT Prepare Fresh Frozen Blood Bank STAT 5:44 AM Plasma : 1 Units OFFICE SUPPORT ASSISTANT Patient Status Lab Routine 03/20/2021 7: 40 AM OFFICE SUPPORT ASSISTANT Prepare Red Blood Cells, 1 Blood Bank Routine 1 05/23/2020 1:12 PM Units OFFICE SUPPORT ASSISTANT Scheduled Procedures Name Priority Associated Diagnoses Date/Time ESOPHAGOGASTRODUODENOSCOPY Cirrhosis Alc oholic (HCC) 03/20/2022 8:45 AM OFFICE SUPPORT ASSISTANT Hypertension Portal (HCC) Scheduled Referrals Name Type Priority Associated Order Schedule Diagnoses Gastroenterology and Outpatient Routine Expecte d: Hepatology office visit Referral 03/03 (clinic) (Approximate), Expires: 03/15/2024 documented as of this encounter Procedures Procedure Name Priority Date/Time Associated Comments Diagnosis VITAMIN A AND VITAMIN Routine 03/24/2021 6:15 Res ults for E, S AM OFFICE SUPPORT ASSISTANT this procedure are in the results section. ZINC, S Routine 03/24/2021 6:15 Results for AM OFFICE SUPPORT ASSISTANT this procedure are in the results section. PROTHROMBIN TIME (PT), Routine 03/24/2021 6:15 Re sults for P AM OFFICE SUPPORT ASSISTANT this procedure are in the results section. CBC WITHOUT Routine 03/24/2021 6:15 Results for DIFFERENTIAL, B AM OFFICE SUPPORT ASSISTANT this procedu re are in the results section. COMPREHENSIVE Routine 03/24/2021 6:15 Results for METABOLIC PANEL, S/P AM OFFICE SUPPORT ASSISTANT this pr ocedure are in the results section. TRANSFUSE RED BLOOD Routine 03/23/2021 3:21 CELLS PM OFFICE SUPPORT ASSISTANT TESTING LOCATION Routine 03/23/2021 1:12 Results for PM OFFICE SUPPORT ASSISTANT this procedure are in the results section. PREPARE RED BLOOD Routine 03/23/2021 1:12 CELLS PM OFFICE SUPPORT ASSISTANT TYPE AND SCREEN Routine 03/23/2021 1:12 Results f or PM OFFICE SUPPORT ASSISTANT this procedure are in the results section. ADULT OXYGEN THERAPY Routine 03/23/2021 8:00 AM OFFICE SUPPORT ASSISTANT PULSE OXIMETRY, Routine 03/23/2021 8:00 CONTINUOUS AM OFFICE SUPPORT ASSISTANT PROTHROMBIN TIME (PT), Routine 03/23/2021 6:43 Re sults for P AM OFFICE SUPPORT ASSISTANT this procedure are in the results section. CBC WITHOUT Routine 03/23/2021 6:43 Results for DIFFERENTIAL, B AM OFFICE SUPPORT ASSISTANT this procedu re are in the results section. PHOSPHORUS Routine 03/23/2021 6:43 Results for (INORGANIC), S AM OFFICE SUPPORT ASSISTANT this procedur e are in the results section. MAGNESIUM, S Routine 03/23/2021 6:43 Results for AM OFFICE SUPPORT ASSISTANT this procedure are in the results section. COMPREHENSIVE Routine 03/23/2021 6:43 Results for METABOLIC PANEL, S/P AM OFFICE SUPPORT ASSISTANT this pr ocedure are in the results section. ADULT OXYGEN THERAPY Routine 03/22/2021 8:00 PM OFFICE SUPPORT ASSISTANT PULSE OXIMETRY, Routine 03/22/2021 8:00 CONTINUOUS PM OFFICE SUPPORT ASSISTANT LACTATE, B Routine 03/22/2021 8:38 Results for AM OFFICE SUPPORT ASSISTANT this procedure are in the results section. PROTHROMBIN TIME (PT), Routine 03/22/2021 8:38 Re sults for P AM OFFICE SUPPORT ASSISTANT this procedure are in the results section. CBC WITHOUT Routine 03/22/2021 8:38 Results for DIFFERENTIAL, B AM OFFICE SUPPORT ASSISTANT this procedu re are in the results section. AMMONIA Routine 03/22/2021 8:38 Results for AM OFFICE SUPPORT ASSISTANT this procedure are in the results section. COMPREHENSIVE Routine 03/22/2021 8:38 Results for METABOLIC PANEL, S/P AM OFFICE SUPPORT ASSISTANT this pr ocedure are in the results section. PHOSPHORUS Routine 03/22/2021 8:33 Results for (INORGANIC), S AM OFFICE SUPPORT ASSISTANT this procedur e are in the results section. MAGNESIUM, S Routine 03/22/2021 8:33 Results for AM OFFICE SUPPORT ASSISTANT this procedure are in the results section. ADULT OXYGEN THERAPY Routine 03/22/2021 8:00 AM OFFICE SUPPORT ASSISTANT PULSE OXIMETRY, Routine 03/22/2021 8:00 CONTINUOUS AM OFFICE SUPPORT ASSISTANT ADULT OXYGEN THERAPY Routine 03/21/2021 8:01 PM OFFICE SUPPORT ASSISTANT PULSE OXIMETRY, Routine 03/21/2021 8:01 CONTINUOUS PM OFFICE SUPPORT ASSISTANT EEG ROUTINE - AWAKE Routine 03/21/2021 4:43 Resul ts for AND SLEEP PM OFFICE SUPPORT ASSISTANT this procedure are in the results section. CT ABDOMEN PELVIS RAD - Routine 03/21/2021 Results f or WITHOUT IV CONTRAST (most inpatients 12:42 PM OFFICE SUPPORT ASSISTANT this procedure and all are in the outpatients) results section. CT HEAD WITHOUT IV RAD - Routine 03/21/2021 Results for CONTRAST (most inpatients 12:42 PM OFFICE SUPPORT ASSISTANT this proced ure and all are in the outpatients) results section. ECG Routine 03/21/2021 Results for 10:06 AM OFFICE SUPPORT ASSISTANT this procedure are in the results section. ADULT OXYGEN THERAPY Routine 03/21/2021 8:01 AM OFFICE SUPPORT ASSISTANT PULSE OXIMETRY, Routine 03/21/2021 8:01 CONTINUOUS AM OFFICE SUPPORT ASSISTANT COMPREHENSIVE Routine 03/21/2021 5:44 Results for METABOLIC PANEL, S/P AM OFFICE SUPPORT ASSISTANT this pr ocedure are in the results section. LACTATE, B Routine 03/21/2021 5:43 Results for AM OFFICE SUPPORT ASSISTANT this procedure are in the results section. PROTHROMBIN TIME (PT), Routine 03/21/2021 5:43 Re sults for P AM OFFICE SUPPORT ASSISTANT this procedure are in the results section. CBC WITHOUT Routine 03/21/2021 5:43 Results for DIFFERENTIAL, B AM OFFICE SUPPORT ASSISTANT this procedu re are in the results section. LACTATE, B Timed 03/20/2021 Results for 10:32 PM OFFICE SUPPORT ASSISTANT this procedure are in the results section. CBC WITH DIFFERENTIAL, Timed 03/20/2021 Resul ts for B 10:32 PM OFFICE SUPPORT ASSISTANT this procedure are in the results section. CREATINE KINASE (CK), Timed 03/20/2021 Result s for S 10:32 PM OFFICE SUPPORT ASSISTANT this procedure are in the results section. AMMONIA Timed 03/20/2021 Results for 10:32 PM OFFICE SUPPORT ASSISTANT this procedure are in the results section. COMPREHENSIVE Timed 03/20/2021 Results for METABOLIC PANEL, S/P 10:32 PM OFFICE SUPPORT ASSISTANT this pr ocedure are in the results section. GLUCOSE POCT, B Routine 03/20/2021 9:03 Results f or PM OFFICE SUPPORT ASSISTANT this procedure are in the results section. ADULT OXYGEN THERAPY Routine 03/20/2021 8:01 PM OFFICE SUPPORT ASSISTANT PULSE OXIMETRY, Routine 03/20/2021 8:01 CONTINUOUS PM OFFICE SUPPORT ASSISTANT ADULT OXYGEN THERAPY Routine 03/20/2021 8:01 AM OFFICE SUPPORT ASSISTANT PULSE OXIMETRY, Routine 03/20/2021 8:01 CONTINUOUS AM OFFICE SUPPORT ASSISTANT LACTATE, B Routine 03/20/2021 7:40 Results for AM OFFICE SUPPORT ASSISTANT this procedure are in the results section. PH BLOOD GAS Routine 03/20/2021 7:40 Results for AM OFFICE SUPPORT ASSISTANT this procedure are in the results section. PROTHROMBIN TIME (PT), Routine 03/20/2021 7:40 Re sults for P AM OFFICE SUPPORT ASSISTANT this procedure are in the results section. CBC WITHOUT Routine 03/20/2021 7:40 Results for DIFFERENTIAL, B AM OFFICE SUPPORT ASSISTANT this procedu re are in the results section. PHOSPHORUS Routine 03/20/2021 7:40 Results for (INORGANIC), S AM OFFICE SUPPORT ASSISTANT this procedur e are in the results section. MAGNESIUM, S Routine 03/20/2021 7:40 Results for AM OFFICE SUPPORT ASSISTANT this procedure are in the results section. VENOUS BLOOD GAS Routine 03/20/2021 7:40 Results for W/COOX, B AM OFFICE SUPPORT ASSISTANT this procedure are in the results section. CALCIUM, IONIZED, S/B Routine 03/20/2021 7:40 Res ults for AM OFFICE SUPPORT ASSISTANT this procedure are in the results section. COMPREHENSIVE Routine 03/20/2021 7:40 Results for METABOLIC PANEL, S/P AM OFFICE SUPPORT ASSISTANT this pr ocedure are in the results section. ADULT OXYGEN THERAPY Routine 03/19/2021 8:01 PM OFFICE SUPPORT ASSISTANT PULSE OXIMETRY, Routine 03/19/2021 8:01 CONTINUOUS PM OFFICE SUPPORT ASSISTANT TRANSFUSE FRESH FROZEN Routine 03/19/2021 5:08 PLASMA PM OFFICE SUPPORT ASSISTANT PH BLOOD GAS Routine 03/19/2021 3:04 Results for PM OFFICE SUPPORT ASSISTANT this procedure are in the results section. 25-HYDROXYVITAMIN D2 Routine 03/19/2021 3:04 Resu lts for AND D3, S PM OFFICE SUPPORT ASSISTANT this procedure are in the results section. POTASSIUM, S/P Timed 03/19/2021 3:04 Results fo r PM OFFICE SUPPORT ASSISTANT this procedure are in the results section. PARATHYROID HORMONE Routine 03/19/2021 3:04 Resul ts for (PTH), S PM OFFICE SUPPORT ASSISTANT this procedure are in the results section. CALCIUM, IONIZED, S/B Routine 03/19/2021 3:04 Res ults for PM OFFICE SUPPORT ASSISTANT this procedure are in the results section. TRANSFUSE RED BLOOD Routine 03/19/2021 CELLS 12:49 PM OFFICE SUPPORT ASSISTANT (TTE) 2D ECHO DOPPLER Routine 03/19/2021 Result s for COLOR AND CONTRAST 12:39 PM OFFICE SUPPORT ASSISTANT this proc edure are in the results section. ADULT OXYGEN THERAPY Routine 03/19/2021 8:01 AM OFFICE SUPPORT ASSISTANT PULSE OXIMETRY, Routine 03/19/2021 8:01 CONTINUOUS AM OFFICE SUPPORT ASSISTANT PROTHROMBIN TIME (PT), Routine 03/19/2021 7:39 Re sults for P AM OFFICE SUPPORT ASSISTANT this procedure are in the results section. CBC WITH DIFFERENTIAL, Routine 03/19/2021 7:39 Re sults for B AM OFFICE SUPPORT ASSISTANT this procedure are in the results section. PHOSPHORUS Routine 03/19/2021 7:39 Results for (INORGANIC), S AM OFFICE SUPPORT ASSISTANT this procedur e are in the results section. MAGNESIUM, S Routine 03/19/2021 7:39 Results for AM OFFICE SUPPORT ASSISTANT this procedure are in the results section. AMMONIA Routine 03/19/2021 7:39 Results for AM OFFICE SUPPORT ASSISTANT this procedure are in the results section. COMPREHENSIVE Routine 03/19/2021 7:39 Results for METABOLIC PANEL, S/P AM OFFICE SUPPORT ASSISTANT this pr ocedure are in the results section. BILIRUBIN DIRECT, S/P Routine 03/19/2021 7:38 Res ults for AM OFFICE SUPPORT ASSISTANT this procedure are in the results section. ECG Routine 03/19/2021 6:44 Results for AM OFFICE SUPPORT ASSISTANT this procedure are in the results section. ADULT OXYGEN THERAPY Routine 03/18/2021 8:01 PM OFFICE SUPPORT ASSISTANT PULSE OXIMETRY, Routine 03/18/2021 8:01 CONTINUOUS PM OFFICE SUPPORT ASSISTANT HEMOGLOBIN, B Routine 03/18/2021 7:00 Results for PM OFFICE SUPPORT ASSISTANT this procedure are in the results section. AMMONIA Routine 03/18/2021 6:59 Results for PM OFFICE SUPPORT ASSISTANT this procedure are in the results section. PROTHROMBIN TIME (PT), Routine 03/18/2021 8:35 Re sults for P AM OFFICE SUPPORT ASSISTANT this procedure are in the results section. CBC WITH DIFFERENTIAL, Routine 03/18/2021 8:35 Re sults for B AM OFFICE SUPPORT ASSISTANT this procedure are in the results section. COMPREHENSIVE Routine 03/18/2021 8:35 Results for METABOLIC PANEL, S/P AM OFFICE SUPPORT ASSISTANT this pr ocedure are in the results section. ADULT OXYGEN THERAPY Routine 03/18/2021 8:02 AM OFFICE SUPPORT ASSISTANT PULSE OXIMETRY, Routine 03/18/2021 8:02 CONTINUOUS AM OFFICE SUPPORT ASSISTANT ADULT OXYGEN THERAPY Routine 03/17/2021 8:01 PM OFFICE SUPPORT ASSISTANT PULSE OXIMETRY, Routine 03/17/2021 8:01 CONTINUOUS PM OFFICE SUPPORT ASSISTANT ADULT OXYGEN THERAPY Routine 03/17/2021 8:01 AM OFFICE SUPPORT ASSISTANT PULSE OXIMETRY, Routine 03/17/2021 8:01 CONTINUOUS AM OFFICE SUPPORT ASSISTANT CBC WITH DIFFERENTIAL, Routine 03/17/2021 6:35 Re sults for B AM OFFICE SUPPORT ASSISTANT this procedure are in the results section. MAGNESIUM, S Routine 03/17/2021 6:35 Results for AM OFFICE SUPPORT ASSISTANT this procedure are in the results section. BASIC METABOLIC PANEL, Routine 03/17/2021 6:35 Re sults for S/P AM OFFICE SUPPORT ASSISTANT this procedure are in the results section. ADULT OXYGEN THERAPY Routine 03/16/2021 8:00 PM OFFICE SUPPORT ASSISTANT PULSE OXIMETRY, Routine 03/16/2021 8:00 CONTINUOUS PM OFFICE SUPPORT ASSISTANT HEMOGLOBIN, B Timed 03/16/2021 4:14 Results for PM OFFICE SUPPORT ASSISTANT this procedure are in the results section. HEMATOCRIT, B Timed 03/16/2021 4:14 Results for PM OFFICE SUPPORT ASSISTANT this procedure are in the results section. HEMOGLOBIN, B STAT 03/16/2021 Results for 12:58 PM OFFICE SUPPORT ASSISTANT this procedure are in the results section. HEMATOCRIT, B STAT 03/16/2021 Results for 12:58 PM OFFICE SUPPORT ASSISTANT this procedure are in the results section. TRANSFUSE RED BLOOD Routine 03/16/2021 CELLS 11:13 AM OFFICE SUPPORT ASSISTANT TRANSFUSE RED BLOOD Routine 03/16/2021 CELLS 10:32 AM OFFICE SUPPORT ASSISTANT TRANSFUSE FRESH FROZEN Routine 03/16/2021 9:58 PLASMA AM OFFICE SUPPORT ASSISTANT TRANSFUSE FRESH FROZEN Routine 03/16/2021 9:20 PLASMA AM OFFICE SUPPORT ASSISTANT ADULT OXYGEN THERAPY Routine 03/16/2021 8:00 AM OFFICE SUPPORT ASSISTANT PULSE OXIMETRY, Routine 03/16/2021 8:00 CONTINUOUS AM OFFICE SUPPORT ASSISTANT TRANSFUSE RED BLOOD Routine 03/16/2021 7:35 CELLS AM OFFICE SUPPORT ASSISTANT ACTIVATED PARTIAL STAT 03/16/2021 7:32 Results for THROMBOPLASTIN TIME AM OFFICE SUPPORT ASSISTANT this pro cedure (APTT), P are in the results section. PROTHROMBIN TIME (PT), STAT 03/16/2021 7:32 Re sults for P AM OFFICE SUPPORT ASSISTANT this procedure are in the results section. FIBRINOGEN, P STAT 03/16/2021 7:32 Results for AM OFFICE SUPPORT ASSISTANT this procedure are in the results section. HEMOGLOBIN, B STAT 03/16/2021 7:31 Results for AM OFFICE SUPPORT ASSISTANT this procedure are in the results section. TESTING LOCATION STAT 03/16/2021 5:44 Results for AM OFFICE SUPPORT ASSISTANT this procedure are in the results section. PREPARE FRESH FROZEN STAT 03/16/2021 5:44 PLASMA AM OFFICE SUPPORT ASSISTANT PREPARE FRESH FROZEN STAT 03/16/2021 5:44 PLASMA AM OFFICE SUPPORT ASSISTANT PREPARE RED BLOOD STAT 03/16/2021 5:44 CELLS AM OFFICE SUPPORT ASSISTANT PREPARE RED BLOOD STAT 03/16/2021 5:44 CELLS AM OFFICE SUPPORT ASSISTANT PREPARE RED BLOOD STAT 03/16/2021 5:44 CELLS AM OFFICE SUPPORT ASSISTANT TYPE AND SCREEN STAT 03/16/2021 5:44 Results f or AM OFFICE SUPPORT ASSISTANT this procedure are in the results section. GLUCOSE POCT, B Routine 03/16/2021 5:43 Results f or AM OFFICE SUPPORT ASSISTANT this procedure are in the results section. PH BLOOD GAS Routine 03/16/2021 4:57 Results for AM OFFICE SUPPORT ASSISTANT this procedure are in the results section. CALCIUM, IONIZED, S/B Routine 03/16/2021 4:57 Res ults for AM OFFICE SUPPORT ASSISTANT this procedure are in the results section. CBC WITHOUT Timed 03/16/2021 4:21 Results for DIFFERENTIAL, B AM OFFICE SUPPORT ASSISTANT this procedu re are in the results section. PHOSPHORUS Timed 03/16/2021 4:21 Results for (INORGANIC), S AM OFFICE SUPPORT ASSISTANT this procedur e are in the results section. MAGNESIUM, S Timed 03/16/2021 4:21 Results for AM OFFICE SUPPORT ASSISTANT this procedure are in the results section. COMPREHENSIVE Timed 03/16/2021 4:21 Results for METABOLIC PANEL, S/P AM OFFICE SUPPORT ASSISTANT this pr ocedure are in the results section. TRANSFUSE FRESH FROZEN Routine 03/16/2021 3:30 PLASMA AM OFFICE SUPPORT ASSISTANT TRANSFUSE Routine 03/16/2021 3:18 CRYOPRECIPITATE AM OFFICE SUPPORT ASSISTANT TRANSFUSE Routine 03/16/2021 2:42 CRYOPRECIPITATE AM OFFICE SUPPORT ASSISTANT CT ABDOMEN PELVIS WITH RAD - Routine 03/16/2021 2:36 R esults for IV CONTRAST (most inpatients AM OFFICE SUPPORT ASSISTANT this proced ure and all are in the outpatients) results section. TEST, POCT, Routine 03/16/2021 2:11 Res ults for U (LAB) AM OFFICE SUPPORT ASSISTANT this procedure are in the results section. PREPARE FRESH FROZEN Routine 03/16/2021 2:05 PLASMA AM OFFICE SUPPORT ASSISTANT PREPARE Routine 03/16/2021 2:05 CRYOPRECIPITATE AM OFFICE SUPPORT ASSISTANT ACTIVATED PARTIAL STAT 03/16/2021 1:11 Results for THROMBOPLASTIN TIME AM OFFICE SUPPORT ASSISTANT this pro cedure (APTT), P are in the results section. PROTHROMBIN TIME (PT), STAT 03/16/2021 1:11 Re sults for P AM OFFICE SUPPORT ASSISTANT this procedure are in the results section. FIBRINOGEN, P STAT 03/16/2021 1:11 Results for AM OFFICE SUPPORT ASSISTANT this procedure are in the results section. HEMOGLOBIN, B Timed 03/16/2021 Results for 12:08 AM OFFICE SUPPORT ASSISTANT this procedure are in the results section. POTASSIUM, S/P Routine 03/16/2021 Results for 12:08 AM OFFICE SUPPORT ASSISTANT this procedure are in the results section. GLUCOSE POCT, B Routine 03/15/2021 Results for 11:33 PM OFFICE SUPPORT ASSISTANT this procedure are in the results section. TRANSFUSE RED BLOOD Routine 03/15/2021 9:33 CELLS PM OFFICE SUPPORT ASSISTANT HEMOGLOBIN, B Timed 03/15/2021 8:11 Results for PM OFFICE SUPPORT ASSISTANT this procedure are in the results section. ADULT OXYGEN THERAPY Routine 03/15/2021 8:01 PM OFFICE SUPPORT ASSISTANT PULSE OXIMETRY, Routine 03/15/2021 8:01 CONTINUOUS PM OFFICE SUPPORT ASSISTANT HEMOGLOBIN, B Timed 03/15/2021 4:52 Results for PM OFFICE SUPPORT ASSISTANT this procedure are in the results section. HEMATOCRIT, B Timed 03/15/2021 4:52 Results for PM OFFICE SUPPORT ASSISTANT this procedure are in the results section. TRANSFUSE FRESH FROZEN Routine 03/15/2021 3:52 PLASMA PM OFFICE SUPPORT ASSISTANT HEMOGLOBIN, B Timed 03/15/2021 2:29 Results for PM OFFICE SUPPORT ASSISTANT this procedure are in the results section. HEMATOCRIT, B Timed 03/15/2021 2:29 Results for PM OFFICE SUPPORT ASSISTANT this procedure are in the results section. PHOSPHORUS Routine 03/15/2021 2:29 Results for (INORGANIC), S PM OFFICE SUPPORT ASSISTANT this procedur e are in the results section. MAGNESIUM, S Routine 03/15/2021 2:29 Results for PM OFFICE SUPPORT ASSISTANT this procedure are in the results section. BASIC METABOLIC PANEL, Timed 03/15/2021 2:29 Re sults for S/P PM OFFICE SUPPORT ASSISTANT this procedure are in the results section. RESPIRATORY ASSESS AND Routine 03/15/2021 2:00 TREAT PM OFFICE SUPPORT ASSISTANT TRANSFUSE FRESH FROZEN Routine 03/15/2021 1:47 PLASMA PM OFFICE SUPPORT ASSISTANT PREPARE FRESH FROZEN Routine 03/15/2021 PLASMA 12:06 PM OFFICE SUPPORT ASSISTANT GLUCOSE POCT, B Routine 03/15/2021 Results for 11:57 AM OFFICE SUPPORT ASSISTANT this procedure are in the results section. TRANSFUSE RED BLOOD Routine 03/15/2021 CELLS 11:00 AM OFFICE SUPPORT ASSISTANT ADULT OXYGEN THERAPY Routine 03/15/2021 8:01 AM OFFICE SUPPORT ASSISTANT PULSE OXIMETRY, Routine 03/15/2021 8:01 CONTINUOUS AM OFFICE SUPPORT ASSISTANT GLUCOSE POCT, B Routine 03/15/2021 6:14 Results f or AM OFFICE SUPPORT ASSISTANT this procedure are in the results section. PROTHROMBIN TIME (PT), Routine 03/15/2021 4:18 Re sults for P AM OFFICE SUPPORT ASSISTANT this procedure are in the results section. CBC WITHOUT Routine 03/15/2021 4:18 Results for DIFFERENTIAL, B AM OFFICE SUPPORT ASSISTANT this procedu re are in the results section. PHOSPHORUS Routine 03/15/2021 4:18 Results for (INORGANIC), S AM OFFICE SUPPORT ASSISTANT this procedur e are in the results section. MAGNESIUM, S Routine 03/15/2021 4:18 Results for AM OFFICE SUPPORT ASSISTANT this procedure are in the results section. COMPREHENSIVE Routine 03/15/2021 4:18 Results for METABOLIC PANEL, S/P AM OFFICE SUPPORT ASSISTANT this pr ocedure are in the results section. GLUCOSE POCT, B Routine 03/14/2021 Results for 11:43 PM OFFICE SUPPORT ASSISTANT this procedure are in the results section. ADULT OXYGEN THERAPY Routine 03/14/2021 8:01 PM OFFICE SUPPORT ASSISTANT PULSE OXIMETRY, Routine 03/14/2021 8:01 CONTINUOUS PM OFFICE SUPPORT ASSISTANT GLUCOSE POCT, B Routine 03/14/2021 6:25 Results f or PM OFFICE SUPPORT ASSISTANT this procedure are in the results section. RESPIRATORY ASSESS AND Routine 03/14/2021 2:00 TREAT PM OFFICE SUPPORT ASSISTANT GLUCOSE POCT, B Routine 03/14/2021 Results for 11:32 AM OFFICE SUPPORT ASSISTANT this procedure are in the results section. PATIENT STATUS STAT 03/14/2021 Results for 11:00 AM OFFICE SUPPORT ASSISTANT this procedure are in the results section. ABG W/COOX STAT 03/14/2021 Results for 11:00 AM OFFICE SUPPORT ASSISTANT this procedure are in the results section. PROTHROMBIN TIME (PT), Routine 03/14/2021 9:22 Re sults for P AM OFFICE SUPPORT ASSISTANT this procedure are in the results section. ADULT OXYGEN THERAPY Routine 03/14/2021 8:01 AM OFFICE SUPPORT ASSISTANT PULSE OXIMETRY, Routine 03/14/2021 8:01 CONTINUOUS AM OFFICE SUPPORT ASSISTANT GLUCOSE POCT, B Routine 03/14/2021 6:28 Results f or AM OFFICE SUPPORT ASSISTANT this procedure are in the results section. PATIENT STATUS Routine 03/14/2021 5:41 Results fo r AM OFFICE SUPPORT ASSISTANT this procedure are in the results section. PH BLOOD GAS Routine 03/14/2021 5:41 Results for AM OFFICE SUPPORT ASSISTANT this procedure are in the results section. ABG W/COOX Routine 03/14/2021 5:41 Results for AM OFFICE SUPPORT ASSISTANT this procedure are in the results section. CBC WITHOUT Routine 03/14/2021 5:41 Results for DIFFERENTIAL, B AM OFFICE SUPPORT ASSISTANT this procedu re are in the results section. PHOSPHORUS Routine 03/14/2021 5:41 Results for (INORGANIC), S AM OFFICE SUPPORT ASSISTANT this procedur e are in the results section. MAGNESIUM, S Routine 03/14/2021 5:41 Results for AM OFFICE SUPPORT ASSISTANT this procedure are in the results section. CALCIUM, IONIZED, S/B Routine 03/14/2021 5:41 Res ults for AM OFFICE SUPPORT ASSISTANT this procedure are in the results section. BASIC METABOLIC PANEL, Routine 03/14/2021 5:41 Re sults for S/P AM OFFICE SUPPORT ASSISTANT this procedure are in the results section. HEPATIC FUNCTION Routine 03/14/2021 5:40 Results for PANEL, S AM OFFICE SUPPORT ASSISTANT this procedure are in the results section. DX CHEST PORTABLE 1 RAD - Routine 03/14/2021 4:33 Resu lts for VIEW (most inpatients AM OFFICE SUPPORT ASSISTANT this proced ure and all are in the outpatients) results section. GLUCOSE POCT, B Routine 03/14/2021 Results for 12:06 AM OFFICE SUPPORT ASSISTANT this procedure are in the results section. ADULT OXYGEN THERAPY Routine 03/13/2021 8:01 PM OFFICE SUPPORT ASSISTANT PULSE OXIMETRY, Routine 03/13/2021 8:01 CONTINUOUS PM OFFICE SUPPORT ASSISTANT HEMOGLOBIN, B Routine 03/13/2021 6:29 Results for PM OFFICE SUPPORT ASSISTANT this procedure are in the results section. GLUCOSE POCT, B Routine 03/13/2021 6:16 Results f or PM OFFICE SUPPORT ASSISTANT this procedure are in the results section. HEMOGLOBIN, B Routine 03/13/2021 4:28 Results for PM OFFICE SUPPORT ASSISTANT this procedure are in the results section. MECHANICAL VENTILATOR Routine 03/13/2021 4:00 PM OFFICE SUPPORT ASSISTANT RESPIRATORY ASSESS AND Routine 03/13/2021 2:00 TREAT PM OFFICE SUPPORT ASSISTANT MECHANICAL VENTILATOR Routine 03/13/2021 12:00 PM OFFICE SUPPORT ASSISTANT GLUCOSE POCT, B Routine 03/13/2021 Results for 11:46 AM OFFICE SUPPORT ASSISTANT this procedure are in the results section. TRANSFUSE RED BLOOD Routine 03/13/2021 CELLS 10:11 AM OFFICE SUPPORT ASSISTANT IRON AND TOT Routine 03/13/2021 8:28 Results for IRON-BINDING CAPACITY, AM OFFICE SUPPORT ASSISTANT this procedure S/P are in the results section. FOLATE, S Routine 03/13/2021 8:28 Results for AM OFFICE SUPPORT ASSISTANT this procedure are in the results section. FERRITIN, S Routine 03/13/2021 8:28 Results for AM OFFICE SUPPORT ASSISTANT this procedure are in the results section. VITAMIN B12 ASSAY, S Routine 03/13/2021 8:28 Resu lts for AM OFFICE SUPPORT ASSISTANT this procedure are in the results section. ADULT OXYGEN THERAPY Routine 03/13/2021 8:01 AM OFFICE SUPPORT ASSISTANT PULSE OXIMETRY, Routine 03/13/2021 8:01 CONTINUOUS AM OFFICE SUPPORT ASSISTANT MECHANICAL VENTILATOR Routine 03/13/2021 8:01 AM OFFICE SUPPORT ASSISTANT PATIENT STATUS Routine 03/13/2021 5:37 Results fo r AM OFFICE SUPPORT ASSISTANT this procedure are in the results section. ABG W/COOX Routine 03/13/2021 5:37 Results for AM OFFICE SUPPORT ASSISTANT this procedure are in the results section. CBC WITH DIFFERENTIAL, Routine 03/13/2021 5:37 Re sults for B AM OFFICE SUPPORT ASSISTANT this procedure are in the results section. TRIGLYCERIDES, S Routine 03/13/2021 5:37 Results for AM OFFICE SUPPORT ASSISTANT this procedure are in the results section. PHOSPHORUS Routine 03/13/2021 5:37 Results for (INORGANIC), S AM OFFICE SUPPORT ASSISTANT this procedur e are in the results section. MAGNESIUM, S Routine 03/13/2021 5:37 Results for AM OFFICE SUPPORT ASSISTANT this procedure are in the results section. AMMONIA Routine 03/13/2021 5:37 Results for AM OFFICE SUPPORT ASSISTANT this procedure are in the results section. COMPREHENSIVE Routine 03/13/2021 5:37 Results for METABOLIC PANEL, S/P AM OFFICE SUPPORT ASSISTANT this pr ocedure are in the results section. DX CHEST PORTABLE 1 RAD - Routine 03/13/2021 4:32 Resu lts for VIEW (most inpatients AM OFFICE SUPPORT ASSISTANT this proced ure and all are in the outpatients) results section. MECHANICAL VENTILATOR Routine 03/13/2021 4:00 AM OFFICE SUPPORT ASSISTANT BASIC METABOLIC PANEL, Timed 03/13/2021 1:20 Re sults for S/P AM OFFICE SUPPORT ASSISTANT this procedure are in the results section. HEMOGLOBIN, B Timed 03/13/2021 Results for 12:11 AM OFFICE SUPPORT ASSISTANT this procedure are in the results section. MECHANICAL VENTILATOR Routine 03/13/2021 12:04 AM OFFICE SUPPORT ASSISTANT GLUCOSE POCT, B Routine 03/12/2021 Results for 11:44 PM OFFICE SUPPORT ASSISTANT this procedure are in the results section. ETHYL GLUCURONIDE SCRN Routine 03/12/2021 Resul ts for W/REFLEX, U 11:12 PM OFFICE SUPPORT ASSISTANT this procedure are in the results section. LDA ANE ENDOTRACHEAL Routine 03/12/2021 Change Mental Result s for AIRWAY 10:30 PM OFFICE SUPPORT ASSISTANT Status this procedure Cirrhosis are in the Alcoholic (HCC) results section. IA INTUB W ETT Routine 03/12/2021 Change Mental Results for 10:30 PM OFFICE SUPPORT ASSISTANT Status this procedure Cirrhosis are in the Alcoholic (HCC) results section. ADULT OXYGEN THERAPY Routine 03/12/2021 8:01 PM OFFICE SUPPORT ASSISTANT PULSE OXIMETRY, Routine 03/12/2021 8:01 CONTINUOUS PM OFFICE SUPPORT ASSISTANT MECHANICAL VENTILATOR Routine 03/12/2021 8:01 PM OFFICE SUPPORT ASSISTANT GLUCOSE POCT, B Routine 03/12/2021 6:11 Results f or PM OFFICE SUPPORT ASSISTANT this procedure are in the results section. IA PARACENTESIS ABD WO Routine 03/12/2021 6:02 Change Mental R esults for IMG PM OFFICE SUPPORT ASSISTANT Status this procedure Cirrhosis are in the Alcoholic (HCC) results section. THORACENTESIS Routine 03/12/2021 6:02 Change Mental Results fo r PM OFFICE SUPPORT ASSISTANT Status this procedure Cirrhosis are in the Alcoholic (HCC) results section. MC ANE CENTRAL LINE Routine 03/12/2021 6:02 Change Mental Resu lts for GENERIC PERFORMABLE PM OFFICE SUPPORT ASSISTANT Status this procedure Cirrhosis are in the Alcoholic (HCC) results section. LDA ANE CENTRAL LINE Routine 03/12/2021 6:02 Change Mental Res ults for TRIPLE LUMEN PM OFFICE SUPPORT ASSISTANT Status this procedure Cirrhosis are in the Alcoholic (HCC) results section. IA US GUIDE VASC Routine 03/12/2021 6:02 Change Mental Results for ACCESS PM OFFICE SUPPORT ASSISTANT Status this procedure Cirrhosis are in the Alcoholic (HCC) results section. IA INS NON-ALEN CVC Routine 03/12/2021 6:02 Change Mental Resul ts for >5YR PM OFFICE SUPPORT ASSISTANT Status this procedure Cirrhosis are in the Alcoholic (HCC) results section. PH BLOOD GAS STAT 03/12/2021 5:35 Results for PM OFFICE SUPPORT ASSISTANT this procedure are in the results section. HEMOGLOBIN, B STAT 03/12/2021 5:35 Results for PM OFFICE SUPPORT ASSISTANT this procedure are in the results section. PHOSPHORUS STAT 03/12/2021 5:35 Results for (INORGANIC), S PM OFFICE SUPPORT ASSISTANT this procedur e are in the results section. MAGNESIUM, S STAT 03/12/2021 5:35 Results for PM OFFICE SUPPORT ASSISTANT this procedure are in the results section. CALCIUM, IONIZED, S/B STAT 03/12/2021 5:35 Res ults for PM OFFICE SUPPORT ASSISTANT this procedure are in the results section. AMMONIA STAT 03/12/2021 5:35 Results for PM OFFICE SUPPORT ASSISTANT this procedure are in the results section. COMPREHENSIVE STAT 03/12/2021 5:35 Results for METABOLIC PANEL, S/P PM OFFICE SUPPORT ASSISTANT this pr ocedure are in the results section. TRANSFUSE RED BLOOD Routine 03/12/2021 4:08 CELLS PM OFFICE SUPPORT ASSISTANT MECHANICAL VENTILATOR Routine 03/12/2021 4:00 PM OFFICE SUPPORT ASSISTANT PROTEIN, TOTAL, BF Routine 03/12/2021 3:46 Result s for PM OFFICE SUPPORT ASSISTANT this procedure are in the results section. BACTERIAL CULTURE, Routine 03/12/2021 3:46 Result s for AEROBIC + SUSC PM OFFICE SUPPORT ASSISTANT this procedur e are in the results section. CELL COUNT AND Routine 03/12/2021 3:46 Results fo r DIFFERENTIAL, BF PM OFFICE SUPPORT ASSISTANT this proced ure are in the results section. GRAM STAIN Routine 03/12/2021 3:46 Results for PM OFFICE SUPPORT ASSISTANT this procedure are in the results section. BACTERIAL CULTURE, Routine 03/12/2021 3:46 Result s for ANAEROBIC + SUSC PM OFFICE SUPPORT ASSISTANT this proced ure are in the results section. ALBUMIN, BODY FLUID Routine 03/12/2021 3:46 Resul ts for PM OFFICE SUPPORT ASSISTANT this procedure are in the results section. AUTOIMMUNE LIVER Routine 03/12/2021 2:57 Results for DISEASE PANEL, S PM OFFICE SUPPORT ASSISTANT this proced ure are in the results section. [id number], S Routine 03/12/2021 2:57 Re sults for PM OFFICE SUPPORT ASSISTANT this procedure are in the results section. CERULOPLASMIN, S Routine 03/12/2021 2:57 Results for PM OFFICE SUPPORT ASSISTANT this procedure are in the results section. GLUCOSE POCT, B Routine 03/12/2021 2:06 Results f or PM OFFICE SUPPORT ASSISTANT this procedure are in the results section. RESPIRATORY ASSESS AND Routine 03/12/2021 2:00 TREAT PM OFFICE SUPPORT ASSISTANT CT ABDOMEN PELVIS WITH RAD - Emergent 03/12/2021 1:50 Results for IV CONTRAST (Fastest; for the PM OFFICE SUPPORT ASSISTANT this proce dure most critically are in the ill patients) results section. CT CHEST WITH IV RAD - Emergent 03/12/2021 1:50 Result s for CONTRAST (Fastest; for the PM OFFICE SUPPORT ASSISTANT this proce dure most critically are in the ill patients) results section. CT HEAD WITHOUT IV RAD - Emergent 03/12/2021 1:49 Resu lts for CONTRAST (Fastest; for the PM OFFICE SUPPORT ASSISTANT this proce dure most critically are in the ill patients) results section. CYTOLOGY NON-PROCESS ENG Routine 03/12/2021 1:11 Results for PM OFFICE SUPPORT ASSISTANT this procedure are in the results section. ECG Routine 03/12/2021 1:01 Results for PM OFFICE SUPPORT ASSISTANT this procedure are in the results section. DX CHEST PORTABLE 1 RAD - Semiurgent 03/12/2021 1:00 R esults for VIEW (Fast; most ED PM OFFICE SUPPORT ASSISTANT this procedur e patients; some are in the inpatients) results section. TESTING LOCATION Routine 03/12/2021 Results for 12:59 PM OFFICE SUPPORT ASSISTANT this procedure are in the results section. LACTATE, B STAT 03/12/2021 Results for 12:59 PM OFFICE SUPPORT ASSISTANT this procedure are in the results section. PATIENT STATUS STAT 03/12/2021 Results for 12:59 PM OFFICE SUPPORT ASSISTANT this procedure are in the results section. ABG W/COOX STAT 03/12/2021 Results for 12:59 PM OFFICE SUPPORT ASSISTANT this procedure are in the results section. PREPARE RED BLOOD Routine 03/12/2021 CELLS 12:59 PM OFFICE SUPPORT ASSISTANT PREPARE RED BLOOD Routine 03/12/2021 CELLS 12:59 PM OFFICE SUPPORT ASSISTANT PREPARE RED BLOOD Routine 03/12/2021 CELLS 12:59 PM OFFICE SUPPORT ASSISTANT PREPARE RED BLOOD Routine 03/12/2021 CELLS 12:59 PM OFFICE SUPPORT ASSISTANT TYPE AND SCREEN Routine 03/12/2021 Results for 12:59 PM OFFICE SUPPORT ASSISTANT this procedure are in the results section. LACTATE DEHYDROGENASE Routine 03/12/2021 Result s for (LD), S 12:59 PM OFFICE SUPPORT ASSISTANT this procedure are in the results section. BILIRUBIN DIRECT, S/P Routine 03/12/2021 Result s for 12:59 PM OFFICE SUPPORT ASSISTANT this procedure are in the results section. CYTOLOGY NON-PROCESS ENG Routine 03/12/2021 Results for 12:39 PM OFFICE SUPPORT ASSISTANT this procedure are in the results section. PROTEIN, TOTAL, BF Routine 03/12/2021 Results f or 12:35 PM OFFICE SUPPORT ASSISTANT this procedure are in the results section. LACTATE DEHYDROGENASE Routine 03/12/2021 Result s for (LD), BF 12:35 PM OFFICE SUPPORT ASSISTANT this procedure are in the results section. BACTERIAL CULTURE, STAT 03/12/2021 Results f or AEROBIC + SUSC 12:34 PM OFFICE SUPPORT ASSISTANT this procedur e are in the results section. CELL COUNT AND STAT 03/12/2021 Results for DIFFERENTIAL, BF 12:34 PM OFFICE SUPPORT ASSISTANT this proced ure are in the results section. GRAM STAIN STAT 03/12/2021 Results for 12:34 PM OFFICE SUPPORT ASSISTANT this procedure are in the results section. BACTERIAL CULTURE, STAT 03/12/2021 Results f or ANAEROBIC + SUSC 12:34 PM OFFICE SUPPORT ASSISTANT this proced ure are in the results section. GLUCOSE, BODY FLUID STAT 03/12/2021 Results for 12:34 PM OFFICE SUPPORT ASSISTANT this procedure are in the results section. MECHANICAL VENTILATOR Routine 03/12/2021 12:00 PM OFFICE SUPPORT ASSISTANT ADULT OXYGEN THERAPY Routine 03/12/2021 11:32 AM OFFICE SUPPORT ASSISTANT ADULT OXYGEN THERAPY Routine 03/12/2021 11:32 AM OFFICE SUPPORT ASSISTANT ADULT OXYGEN THERAPY Routine 03/12/2021 11:32 AM OFFICE SUPPORT ASSISTANT MECHANICAL VENTILATOR Routine 03/12/2021 11:32 AM OFFICE SUPPORT ASSISTANT MECHANICAL VENTILATOR Routine 03/12/2021 11:32 AM OFFICE SUPPORT ASSISTANT MECHANICAL VENTILATOR Routine 03/12/2021 11:32 AM OFFICE SUPPORT ASSISTANT MECHANICAL VENTILATOR Routine 03/12/2021 11:32 AM OFFICE SUPPORT ASSISTANT MECHANICAL VENTILATOR Routine 03/12/2021 11:32 AM OFFICE SUPPORT ASSISTANT INFLUENZA A/B AND RSV, Routine 03/12/2021 Resul ts for PCR, VARIES 11:00 AM OFFICE SUPPORT ASSISTANT this procedure are in the results section. SARS CORONAVIRUS-2 Routine 03/12/2021 Results f or RNA, V 11:00 AM OFFICE SUPPORT ASSISTANT this procedure are in the results section. LDA ANE ARTERIAL LINE Routine 03/12/2021 Change Mental Resul ts for INSERTION 10:45 AM OFFICE SUPPORT ASSISTANT Status this procedure Cirrhosis are in the Alcoholic (HCC) results section. IA ARTL CATH/CNULA Routine 03/12/2021 Change Mental Results for MONITOR PERC 10:45 AM OFFICE SUPPORT ASSISTANT Status this procedure Cirrhosis are in the Alcoholic (HCC) results section. PULSE OXIMETRY, Routine 03/12/2021 8:02 CONTINUOUS AM OFFICE SUPPORT ASSISTANT LACTATE, B Timed 03/12/2021 7:10 Results for AM OFFICE SUPPORT ASSISTANT this procedure are in the results section. PATIENT STATUS STAT 03/12/2021 7:10 Results fo r AM OFFICE SUPPORT ASSISTANT this procedure are in the results section. ABG W/COOX STAT 03/12/2021 7:10 Results for AM OFFICE SUPPORT ASSISTANT this procedure are in the results section. BACTERIA / RAUDEL Routine 03/12/2021 7:10 Result s for CULTURE, BLOOD AM OFFICE SUPPORT ASSISTANT this procedur e are in the results section. DX CHEST PORTABLE 1 RAD - Semiurgent 03/12/2021 6:24 R esults for VIEW (Fast; most ED AM OFFICE SUPPORT ASSISTANT this procedur e patients; some are in the inpatients) results section. URINALYSIS WITH Routine 03/12/2021 6:23 Results f or MICROSCOPIC IF AM OFFICE SUPPORT ASSISTANT this procedur e INDICATED, U are in the results section. HC URINALYSIS AUTO WO Routine 03/12/2021 6:23 Res ults for MICRO AM OFFICE SUPPORT ASSISTANT this procedure are in the results section. DRUG SCREEN URINE Routine 03/12/2021 6:23 Results for AM OFFICE SUPPORT ASSISTANT this procedure are in the results section. NASAL SCREEN FOR MRSA Routine 03/12/2021 6:23 Res ults for BY RAPID PCR AM OFFICE SUPPORT ASSISTANT this procedure are in the results section. HCV AB W/REFLEX TO HCV Timed 03/12/2021 5:58 Re sults for PCR, S AM OFFICE SUPPORT ASSISTANT this procedure are in the results section. HEPATITIS A IGM AB Timed 03/12/2021 5:58 Result s for AM OFFICE SUPPORT ASSISTANT this procedure are in the results section. HEP B CORE AB, IGM Timed 03/12/2021 5:58 Result s for AM OFFICE SUPPORT ASSISTANT this procedure are in the results section. HEPATITIS B SURFACE Timed 03/12/2021 5:58 Resul ts for ANTIGEN AM OFFICE SUPPORT ASSISTANT this procedure are in the results section. AMMONIA Timed 03/12/2021 5:58 Results for AM OFFICE SUPPORT ASSISTANT this procedure are in the results section. LACTATE, B STAT 03/12/2021 5:57 Results for AM OFFICE SUPPORT ASSISTANT this procedure are in the results section. ETHANOL, S STAT 03/12/2021 5:57 Results for AM OFFICE SUPPORT ASSISTANT this procedure are in the results section. PH BLOOD GAS STAT 03/12/2021 5:57 Results for AM OFFICE SUPPORT ASSISTANT this procedure are in the results section. NT-PRO B-TYPE STAT 03/12/2021 5:57 Results for NATRIURETIC PEPTIDE AM OFFICE SUPPORT ASSISTANT this pro cedure (BNP), S are in the results section. BACTERIA / RAUDEL Routine 03/12/2021 5:57 Result s for CULTURE, BLOOD AM OFFICE SUPPORT ASSISTANT this procedur e are in the results section. PROTHROMBIN TIME (PT), STAT 03/12/2021 5:57 Re sults for P AM OFFICE SUPPORT ASSISTANT this procedure are in the results section. CBC WITHOUT STAT 03/12/2021 5:57 Results for DIFFERENTIAL, B AM OFFICE SUPPORT ASSISTANT this procedu re are in the results section. HUMAN CHORIONIC STAT 03/12/2021 5:57 Results f or GONADOTROPIN (HCG), AM OFFICE SUPPORT ASSISTANT this pro cedure EDDI, are in the results section. THYROID-STIMULATING STAT 03/12/2021 5:57 Resul ts for HORMONE-SENSITIVE AM OFFICE SUPPORT ASSISTANT this proce dure (S-TSH) are in the results section. PHOSPHORUS STAT 03/12/2021 5:57 Results for (INORGANIC), S AM OFFICE SUPPORT ASSISTANT this procedur e are in the results section. MAGNESIUM, S STAT 03/12/2021 5:57 Results for AM OFFICE SUPPORT ASSISTANT this procedure are in the results section. LIPASE, S/P STAT 03/12/2021 5:57 Results for AM OFFICE SUPPORT ASSISTANT this procedure are in the results section. CALCIUM, IONIZED, S/B STAT 03/12/2021 5:57 Res ults for AM OFFICE SUPPORT ASSISTANT this procedure are in the results section. ACETAMINOPHEN LEVEL, S STAT 03/12/2021 5:57 Re sults for AM OFFICE SUPPORT ASSISTANT this procedure are in the results section. SALICYLATE LEVEL, S STAT 03/12/2021 5:57 Resul ts for AM OFFICE SUPPORT ASSISTANT this procedure are in the results section. COMPREHENSIVE STAT 03/12/2021 5:57 Results for METABOLIC PANEL, S/P AM OFFICE SUPPORT ASSISTANT this pr ocedure are in the results section. GLUCOSE POCT, B Routine 03/12/2021 5:48 Results f or AM OFFICE SUPPORT ASSISTANT this procedure are in the results section. RESPIRATORY ASSESS AND Routine 03/12/2021 5:37 TREAT AM OFFICE SUPPORT ASSISTANT PULSE OXIMETRY, Routine 03/12/2021 5:37 CONTINUOUS AM OFFICE SUPPORT ASSISTANT PULSE OXIMETRY, Routine 03/12/2021 5:37 CONTINUOUS AM OFFICE SUPPORT ASSISTANT PULSE OXIMETRY, Routine 03/12/2021 5:37 CONTINUOUS AM OFFICE SUPPORT ASSISTANT documented in this encounter Results (ABNORMAL) Prothrombin Time (PT) (03/24/2021 6:15 AM OFFICE SUPPORT ASSISTANT) Patholo gist Method Time Signature Prothrombin 30.1 (H) 9.4 - 12.5 03/24/2021 MK[facility] Time, P sec 6:52 AM OFFICE SUPPORT ASSISTANT INR 2.7 0.9 - 1.1 03/24/2021 MKTO 6:52 AM OFFICE SUPPORT ASSISTANT Comment: ----ADDITIONAL INFORMATION---- Standard intensity warfarin therapeutic range: 2.0 to 3.0 ?? High intensity warfarin therapeutic rang e: 2.5 to 3.5 Specimen Anatomical Collection Method Collection Time Receive d Time (Source) Location / / Volume Laterality Blood (Blood, 03/24/2021 6:15 AM 03/24/20 6:21 Venous) OFFICE SUPPORT ASSISTANT AM OFFICE SUPPORT ASSISTANT Darian Thomas M.D., J.D. LAB BLOOD ADD-ON Performing Organization Address City/State/ZIP Code Phon e Number [facility]- [address] [place] [phone] [place] [address] [place] [address] [address] (ABNORMAL) Comprehensive Metabolic Panel (03/24/2021 6:15 AM OFFICE SUPPORT ASSISTANT) [facility] Signature Potassium, P 4.1 3.6 - 5.2 03/24/2021 MK[facility] mmol/L 6:54 AM OFFICE SUPPORT ASSISTANT Sodium, P 139 135 - 145 03/24/2021 [facility] mmol/L 6:54 AM OFFICE SUPPORT ASSISTANT Chloride, P 108 (H) 98 - 107 03/24/2021 [facility] mmol/L 6:54 AM OFFICE SUPPORT ASSISTANT Bicarbonate, P 18 (L) 22 - 29 03/24/2021 [facility] mmol/L 6:54 AM OFFICE SUPPORT ASSISTANT Anion Gap, P 13 7 - 15 03/24/2021 MK[facility] 6:54 AM OFFICE SUPPORT ASSISTANT BUN (Blood Urea 6 6 - 21 03/24/2021 MK[facility] Nitrogen), P mg/dL 6:54 AM OFFICE SUPPORT ASSISTANT Creatinine 0.35 (L) 0.59 - 03/24/2021 [facility] 1.04 mg/dL 6:54 AM OFFICE SUPPORT ASSISTANT eGFR-Black/Afri >90 >=60 03/24/2021 MK[facility] can Afghan mL/min/BSA 6:54 AM OFFICE SUPPORT ASSISTANT Comment: ----ADDITIONAL INFORMATION---- Estimated GFR calculated using the 2009 CKD_EPI creatinine equation. eGFR Non-Black/ >90 >=60 mL/min/BSA 03/24/2021 6:54 AM OFFICE SUPPORT ASSISTANT MKTO Comment: ----ADDITIONAL INFORMATION---- Estimated GFR calculated using the 2009 CKD_EPI creatinine equation. Calcium, Total, P 10.3 (H) 8.6 - 10.0 mg/dL 03/24/2021 6:54 AM OFFICE SUPPORT ASSISTANT MKTO Glucose, P 120 70 - 140 mg/dL 03/24/2021 6:54 AM OFFICE SUPPORT ASSISTANT M KTO Protein, Total, P 6.5 6.3 - 7.9 g/dL 03/24/2021 6:54 A M OFFICE SUPPORT ASSISTANT MKTO Albumin, P 5.3 (H) 3.5 - 5.0 g/dL 03/24/2021 6:54 AM OFFICE SUPPORT ASSISTANT M KTO Aspartate Aminotransferase 46 (H) 8 - 43 U/L 03/24/2021 6 :54 AM OFFICE SUPPORT ASSISTANT MKTO (AST), P Alkaline Phosphatase, P 77 35 - 104 U/L 03/24/2021 6: 54 AM OFFICE SUPPORT ASSISTANT MKTO Alanine Aminotransferase 20 7 - 45 U/L 03/24/2021 6:5 4 AM OFFICE SUPPORT ASSISTANT MKTO (ALT), P Bilirubin, Total, P 7.8 (H) <=1.2 mg/dL 03/24/2021 6:54 AM OFFICE SUPPORT ASSISTANT MKTO Specimen Anatomical Collection Method Collection Time Receive d Time (Source) Location / / Volume Laterality Blood (Blood, 03/24/2021 6:15 AM 03/24/20 6:21 Venous) OFFICE SUPPORT ASSISTANT AM OFFICE SUPPORT ASSISTANT Darian Thomas M.D., J.D. LAB BLOOD ADD-ON Performing Organization Address City/State/ZIP Code Phon e Number [facility]- [address] [place] [phone] [place] [address] (ABNORMAL) CBC without Differential (03/24/2021 6:15 AM OFFICE SUPPORT ASSISTANT) Patholo gist Method Time Signature Hemoglobin 8.7 (L) 11.6 - 03/24/2021 [facility] 15.0 g/dL 6:33 AM OFFICE SUPPORT ASSISTANT Hematocrit 26.3 (L) 35.5 - 03/24/2021 MK[facility] 44.9 % 6:33 AM OFFICE SUPPORT ASSISTANT Erythrocytes 2.80 (L) 3.92 - 03/24/2021 MK[facility] 5.13 6:33 AM OFFICE SUPPORT ASSISTANT x10(12)/L MCV 93.9 78.2 - 03/24/2021 MKTO 97.9 fL 6:33 AM OFFICE SUPPORT ASSISTANT RBC Distrib Width 21.7 (H) 12.2 - 03/24/2021 MKTO 16.1 % 6:33 AM OFFICE SUPPORT ASSISTANT Platelet Count 100 (L) 157 - 371 03/24/2021 MK[facility] x10(9)/L 6:33 AM OFFICE SUPPORT ASSISTANT Leukocytes 10.0 (H) 3.4 - 9.6 03/24/2021 MK[facility] x10(9)/L 6:33 AM OFFICE SUPPORT ASSISTANT Specimen Anatomical Collection Method Collection Time Receive d Time (Source) Location / / Volume Laterality Blood (Blood, 03/24/2021 6:15 AM 03/24/20 6:21 Venous) OFFICE SUPPORT ASSISTANT AM OFFICE SUPPORT ASSISTANT Darian Thomas M.D., J.D. LAB BLOOD ADD-ON Performing Organization Address City/State/ZIP Code Phon e Number [facility]- [address] [place] [phone] [place] [address] Zinc (03/24/2021 6:15 AM OFFICE SUPPORT ASSISTANT) athologist Signature Zinc, S 0.66 0.66 - 1.10 03/25/2021 SDSC mcg/mL 10:45 AM OFFICE SUPPORT ASSISTANT Comment: ----ADDITIONAL INFORMATION---- This test was developed and its performa nce characteristics determined by [facility] in a manner consistent with CLIA requirements. This test has not been cleared or approved by the [place] and Drug Administration. Specimen Anatomical Collection Method Collection Time Receive d Time (Source) Location / / Volume Laterality Blood (Blood, 03/24/2021 6:15 AM 03/25/20 8:18 Venous) OFFICE SUPPORT ASSISTANT AM OFFICE SUPPORT ASSISTANT Darian Thomas M.D., J.D. LAB BLOOD NON ADD-ON Performing Organization Address [facility] Phon e Number [facility] [address] [place] [phone] [facility] [place] [address] Laboratory Medicine and Pathology [address] [place] [address] Dr. CHAPPELL (ABNORMAL) Vitamin A and Vitamin E (03/24/2021 6:15 AM OFFICE SUPPORT ASSISTANT) athologist Signature Vitamin A <5.0 (L) 32.5 - 78.0 03/26/2021 [facility] mcg/dL 10:49 AM OFFICE SUPPORT ASSISTANT Comment: In this sample, the retinol (vitamin A) level indicates a severe deficiency. ----ADDITIONAL INFORMATION---- This test was developed and its performa nce characteristics determined by [facility] in a manner consistent with CLIA requirements. This test has not been cleared or approved by the [place] and Drug Administration. A-Tocopherol, Vitamin E 5.4 (L) 5.5 - 17.0 mg/L 03/27/2021 4:54 AM OFFICE SUPPORT ASSISTANT [facility] Specimen Anatomical Collection Method Collection Time Receive d Time (Source) Location / / Volume Laterality Blood (Blood, 03/24/2021 6:15 AM 03/25/20 3:48 Venous) OFFICE SUPPORT ASSISTANT PM OFFICE SUPPORT ASSISTANT Darian Thomas M.D., J.D. LAB BLOOD NON ADD-ON Performing Organization Address City/[facility]/ZIP Code Phon e Number [address] [place] [phone] 05 [facility] [place] [address] Laboratory Medicine and Pathology [address] [place] [address] Dr. CHAPPELL Transfuse Red Blood Cells : (03/23/2021 5:52 PM OFFICE SUPPORT ASSISTANT) Darian Thomas M.D., J.D. BLOOD TRANSFUSION ORDERAB LES Transfuse Red Blood Cells : , 1 Units (03/23/2021 5:52 PM OFFICE SUPPORT ASSISTANT) Darian Thomas M.D., J.D. BLOOD TRANSFUSION ORDERAB LES Testing Location (03/23/2021 1:12 PM OFFICE SUPPORT ASSISTANT) athologist Signature Testing [facility] DEFAULT 03/23/2021 [facility] Location 1:22 PM OFFICE SUPPORT ASSISTANT Specimen Anatomical Collection Method Collection Time Receive d Time (Source) Location / / Volume Laterality Blood 03/23/2021 1:12 PM 1:21 OFFICE SUPPORT ASSISTANT PM OFFICE SUPPORT ASSISTANT Darian Thomas M.D., J.D. LAB BLOOD BANK TEST ORDER HARVEY Performing Organization Address City/[facility] Phon e Number [facility]- [address] [place] [phone] [place] [address] Type and Screen (with reflex Antibody ID) (03/23/2021 1:12 PM OFFICE SUPPORT ASSISTANT) [facility] gist Method Time Signature ABO Group B 03/23/2021 MKTO 2:01 PM OFFICE SUPPORT ASSISTANT Rh Type POS 03/23/2021 MK[facility] 2:01 PM OFFICE SUPPORT ASSISTANT Antibody Screen NEG 03/23/2021 MK[facility] 2:01 PM OFFICE SUPPORT ASSISTANT Type & Screen 03/26/2021 03/23/2021 MKTO Expiration 23:59 2:01 PM OFFICE SUPPORT ASSISTANT ELXM Eligible Y 03/23/2021 MKTO 2:01 PM OFFICE SUPPORT ASSISTANT Specimen Anatomical Collection Method Collection Time Receive d Time (Source) Location / / Volume Laterality Blood (Blood, 03/23/2021 1:12 PM 03/23/20 1:21 Venous) OFFICE SUPPORT ASSISTANT PM OFFICE SUPPORT ASSISTANT Darian Thomas M.D., J.D. LAB BLOOD BANK TEST ORDER HARVEY Performing Organization Address [facility] Phon e Number [facility]- [address] [place] [phone] [place] [address] (ABNORMAL) Phosphorus Inorganic (03/23/2021 6:43 AM OFFICE SUPPORT ASSISTANT) athologist Signature Phosphorus 2.4 (L) 2.5 - 4.5 03/23/2021 MK[facility] (Inorganic), P mg/dL 7:40 AM OFFICE SUPPORT ASSISTANT Specimen Anatomical Collection Method Collection Time Receive d Time (Source) Location / / Volume Laterality Blood (Blood, 03/23/2021 6:43 AM 03/23/20 6:58 Venous) OFFICE SUPPORT ASSISTANT AM OFFICE SUPPORT ASSISTANT Darian Thomas M.D., J.D. LAB BLOOD ADD-ON Performing Organization Address [facility] Phon e Number [facility]- [address] [place] [phone] [place] [address] [address] Magnesium (03/23/2021 6:43 AM OFFICE SUPPORT ASSISTANT) P athologist Signature Magnesium, P 1.9 1.7 - 2.3 03/23/2021 [facility] mg/dL 7:40 AM OFFICE SUPPORT ASSISTANT Specimen Anatomical Collection Method Collection Time Receive d Time (Source) Location / / Volume Laterality Blood (Blood, 03/23/2021 6:43 AM 03/23/20 6:58 Venous) OFFICE SUPPORT ASSISTANT AM OFFICE SUPPORT ASSISTANT Darian Thomas M.D., J.D. LAB BLOOD ADD-ON Performing Organization Address [facility] Phon e Number [facility]- [address] [place] [phone] [place] [address] (ABNORMAL) Prothrombin Time (PT) (03/23/2021 6:43 AM OFFICE SUPPORT ASSISTANT) Patholo gist Method Time Signature Prothrombin 31.8 (H) 9.4 - 12.5 03/23/2021 [facility] Time, P sec 7:55 AM OFFICE SUPPORT ASSISTANT INR 2.8 0.9 - 1.1 03/23/2021 MKTO 7:55 AM OFFICE SUPPORT ASSISTANT Comment: ----ADDITIONAL INFORMATION---- Standard intensity warfarin therapeutic range: 2.0 to 3.0 ?? High intensity warfarin therapeutic rang e: 2.5 to 3.5 Specimen Anatomical Collection Method Collection Time Receive d Time (Source) Location / / Volume Laterality Blood (Blood, 03/23/2021 6:43 AM 03/23/20 6:58 Venous) OFFICE SUPPORT ASSISTANT AM OFFICE SUPPORT ASSISTANT Darianbrooks Thomas M.D., J.D. LAB BLOOD ADD-ON Performing Organization Address City/State/ZIP Code Phon e Number [facility]- [address] [place] [address] [place] [address] System in [place] [address] [facility] (ABNORMAL) Comprehensive Metabolic Panel (03/23/2021 6:43 AM OFFICE SUPPORT ASSISTANT) Analysis Performed At Patho logist Time Signature Potassium, P 3.4 (L) 3.6 - 5.2 03/23/2021 [facility] mmol/L 7:40 AM OFFICE SUPPORT ASSISTANT Sodium, P 139 135 - 145 03/23/2021 [facility] mmol/L 7:40 AM OFFICE SUPPORT ASSISTANT Chloride, P 106 98 - 107 03/23/2021 [facility] mmol/L 7:40 AM OFFICE SUPPORT ASSISTANT Bicarbonate, P 19 (L) 22 - 29 03/23/2021 [facility] mmol/L 7:40 AM OFFICE SUPPORT ASSISTANT Anion Gap, P 14 7 - 15 03/23/2021 [facility] 7:40 AM OFFICE SUPPORT ASSISTANT BUN (Blood Urea 6 6 - 21 03/23/2021 MKTO Nitrogen), P mg/dL 7:40 AM OFFICE SUPPORT ASSISTANT Creatinine 0.37 (L) 0.59 - 03/23/2021 [facility] 1.04 mg/dL 7:40 AM OFFICE SUPPORT ASSISTANT eGFR-Black/Afri >90 >=60 03/23/2021 MKTO can [place] mL/min/BSA 7:40 AM OFFICE SUPPORT ASSISTANT Comment: ----ADDITIONAL INFORMATION---- Estimated GFR calculated using the 2009 CKD_EPI creatinine equation. eGFR Non-Black/ >90 >=60 mL/min/BSA 03/23/2021 7:40 AM OFFICE SUPPORT ASSISTANT MKTO Comment: ----ADDITIONAL INFORMATION---- Estimated GFR calculated using the 2009 CKD_EPI creatinine equation. Calcium, Total, P 10.3 (H) 8.6 - 10.0 mg/dL 03/23/2021 7:40 AM OFFICE SUPPORT ASSISTANT MKTO Glucose, P 152 (H) 70 - 140 mg/dL 03/23/2021 7:40 AM OFFICE SUPPORT ASSISTANT M KTO Protein, Total, P 6.3 6.3 - 7.9 g/dL 03/23/2021 7:40 A M OFFICE SUPPORT ASSISTANT MKTO Albumin, P 5.3 (H) 3.5 - 5.0 g/dL 03/23/2021 7:40 AM OFFICE SUPPORT ASSISTANT M KTO Aspartate Aminotransferase 51 (H) 8 - 43 U/L 03/23/2021 7 :40 AM OFFICE SUPPORT ASSISTANT MKTO (AST), P Alkaline Phosphatase, P 73 35 - 104 U/L 03/23/2021 7: 40 AM OFFICE SUPPORT ASSISTANT MKTO Alanine Aminotransferase 21 7 - 45 U/L 03/23/2021 7:4 0 AM OFFICE SUPPORT ASSISTANT [facility] (ALT), P Bilirubin, Total, P 6.1 (H) <=1.2 mg/dL 03/23/2021 7:40 AM OFFICE SUPPORT ASSISTANT MKTO Specimen Anatomical Collection Method Collection Time Receive d Time (Source) Location / / Volume Laterality Blood (Blood, 03/23/2021 6:43 AM 03/23/20 6:58 Venous) OFFICE SUPPORT ASSISTANT AM OFFICE SUPPORT ASSISTANT Darian Thomas M.D., J.D. LAB BLOOD ADD-ON Performing Organization Address City/State/ZIP Code Phon e Number [facility]- [address] [place] [phone] [place] [address] [place] [address] [address] (ABNORMAL) CBC without Differential (03/23/2021 6:43 AM OFFICE SUPPORT ASSISTANT) [facility] gist Method Time Signature Hemoglobin 6.8 (L) 11.6 - 03/23/2021 MKTO 15.0 g/dL 7:45 AM OFFICE SUPPORT ASSISTANT Hematocrit 21.0 (L) 35.5 - 03/23/2021 MKTO 44.9 % 7:45 AM OFFICE SUPPORT ASSISTANT Erythrocytes 2.28 (L) 3.92 - 03/23/2021 MK[facility] 5.13 7:45 AM OFFICE SUPPORT ASSISTANT x10(12)/L MCV 92.1 78.2 - 03/23/2021 MKTO 97.9 fL 7:45 AM OFFICE SUPPORT ASSISTANT RBC Distrib Width 22.2 (H) 12.2 - 03/23/2021 MKTO 16.1 % 7:45 AM OFFICE SUPPORT ASSISTANT Platelet Count 98 (L) 157 - 371 03/23/2021 [facility] x10(9)/L 7:45 AM OFFICE SUPPORT ASSISTANT Leukocytes 9.2 3.4 - 9.6 03/23/2021 MK[facility] x10(9)/L 7:45 AM OFFICE SUPPORT ASSISTANT Specimen Anatomical Collection Method Collection Time Receive d Time (Source) Location / / Volume Laterality Blood (Blood, 03/23/2021 6:43 AM 03/23/20 6:58 Venous) OFFICE SUPPORT ASSISTANT AM OFFICE SUPPORT ASSISTANT Darian Thomas M.D., J.D. LAB BLOOD ADD-ON Performing Organization Address City/[facility]/ZIP Code Phon e Number [address] [phone] [place] [address] (ABNORMAL) Lactate, B (03/22/2021 8:38 AM OFFICE SUPPORT ASSISTANT) P athologist Signature Lactate, B 2.3 (H) 0.5 - 2.2 03/22/2021 MK[facility] mmol/L 8:58 AM OFFICE SUPPORT ASSISTANT Specimen Anatomical Collection Method Collection Time Receive d Time (Source) Location / / Volume Laterality Blood 03/22/2021 8:38 AM 8:50 OFFICE SUPPORT ASSISTANT AM OFFICE SUPPORT ASSISTANT Darian Thomas M.D., J.D. LAB BLOOD NON ADD-ON Performing Organization Address City/[facility]/ZIP Code Phon e Number [address] [address] [place] [address] [address] (ABNORMAL) Ammonia (03/22/2021 8:38 AM OFFICE SUPPORT ASSISTANT) P athologist Signature Ammonia, P 60 (H) <=51 03/22/2021 MKTO mcmol/L 9:11 AM OFFICE SUPPORT ASSISTANT Specimen Anatomical Collection Method Collection Time Receive d Time (Source) Location / / Volume Laterality Blood (Blood, 03/22/2021 8:38 AM 03/22/20 8:50 Venous) OFFICE SUPPORT ASSISTANT AM OFFICE SUPPORT ASSISTANT Darian Thomas M.D., J.D. LAB BLOOD NON ADD-ON Performing Organization Address City/[facility]/ZIP Code Phon e Number [address] [phone] [facility] [place] [address] (ABNORMAL) Prothrombin Time (PT) (03/22/2021 8:38 AM OFFICE SUPPORT ASSISTANT) Patholo gist Method Time Signature Prothrombin 30.5 (H) 9.4 - 12.5 03/22/2021 [facility] Time, P sec 9:24 AM OFFICE SUPPORT ASSISTANT INR 2.7 0.9 - 1.1 03/22/2021 [facility] 9:24 AM OFFICE SUPPORT ASSISTANT Comment: ----ADDITIONAL INFORMATION---- Standard intensity warfarin therapeutic range: 2.0 to 3.0 ?? High intensity warfarin therapeutic rang e: 2.5 to 3.5 Specimen Anatomical Collection Method Collection Time Receive d Time (Source) Location / / Volume Laterality Blood (Blood, 03/22/2021 8:38 AM 03/22/20 8:50 Venous) OFFICE SUPPORT ASSISTANT AM OFFICE SUPPORT ASSISTANT Darina Thomas M.D., J.D. LAB BLOOD ADD-ON Performing Organization Address City/State/ZIP Code Phon e Number [facility]- [address] [place] [address] [place] [address] [address] (ABNORMAL) Comprehensive Metabolic Panel (03/22/2021 8:38 AM OFFICE SUPPORT ASSISTANT) [facility] Time Signature Potassium, P 3.4 (L) 3.6 - 5.2 03/22/2021 [facility] mmol/L 9:20 AM OFFICE SUPPORT ASSISTANT Sodium, P 139 135 - 145 03/22/2021 [facility] mmol/L 9:20 AM OFFICE SUPPORT ASSISTANT Chloride, P 105 98 - 107 03/22/2021 [facility] mmol/L 9:20 AM OFFICE SUPPORT ASSISTANT Bicarbonate, P 19 (L) 22 - 29 03/22/2021 [facility] mmol/L 9:20 AM OFFICE SUPPORT ASSISTANT Anion Gap, P 15 7 - 15 03/22/2021 [facility] 9:20 AM OFFICE SUPPORT ASSISTANT BUN (Blood Urea 6 6 - 21 03/22/2021 [facility] Nitrogen), P mg/dL 9:20 AM OFFICE SUPPORT ASSISTANT Creatinine 0.40 (L) 0.59 - 03/22/2021 [facility] 1.04 mg/dL 9:20 AM OFFICE SUPPORT ASSISTANT eGFR-Black/Afri >90 >=60 03/22/2021 MK[facility] can [place] mL/min/BSA 9:20 AM OFFICE SUPPORT ASSISTANT Comment: ----ADDITIONAL INFORMATION---- Estimated GFR calculated using the 2009 CKD_EPI creatinine equation. eGFR Non-Black/ >90 >=60 mL/min/BSA 03/22/2021 9:20 AM OFFICE SUPPORT ASSISTANT MKTO Comment: ----ADDITIONAL INFORMATION---- Estimated GFR calculated using the 2009 CKD_EPI creatinine equation. Calcium, Total, P 10.1 (H) 8.6 - 10.0 mg/dL 03/22/2021 9:20 AM OFFICE SUPPORT ASSISTANT MKTO Glucose, P 115 70 - 140 mg/dL 03/22/2021 9:20 AM OFFICE SUPPORT ASSISTANT M KTO Protein, Total, P 6.2 (L) 6.3 - 7.9 g/dL 03/22/2021 9:20 A M OFFICE SUPPORT ASSISTANT MKTO Albumin, P 5.2 (H) 3.5 - 5.0 g/dL 03/22/2021 9:20 AM OFFICE SUPPORT ASSISTANT M KTO Aspartate Aminotransferase 52 (H) 8 - 43 U/L 03/22/2021 9 :20 AM OFFICE SUPPORT ASSISTANT MK[facility] (AST), P Alkaline Phosphatase, P 59 35 - 104 U/L 03/22/2021 9: 20 AM OFFICE SUPPORT ASSISTANT MKTO Alanine Aminotransferase 20 7 - 45 U/L 03/22/2021 9:2 0 AM OFFICE SUPPORT ASSISTANT [facility] (ALT), P Bilirubin, Total, P 5.9 (H) <=1.2 mg/dL 03/22/2021 9:20 AM OFFICE SUPPORT ASSISTANT MKTO Specimen Anatomical Collection Method Collection Time Receive d Time (Source) Location / / Volume Laterality Blood (Blood, 03/22/2021 8:38 AM 03/22/20 8:50 Venous) OFFICE SUPPORT ASSISTANT AM OFFICE SUPPORT ASSISTANT Darian Thomas M.D., J.D. LAB BLOOD ADD-ON Performing Organization Address City/State/ZIP Code Phon e Number [facility]- [address] [place] [phone] [place] [address] [place] [address] [address] (ABNORMAL) CBC without Differential (03/22/2021 8:38 AM OFFICE SUPPORT ASSISTANT) [facility] gist Method Time Signature Hemoglobin 7.2 (L) 11.6 - 03/22/2021 [facility] 15.0 g/dL 9:11 AM OFFICE SUPPORT ASSISTANT Hematocrit 22.6 (L) 35.5 - 03/22/2021 MK[facility] 44.9 % 9:11 AM OFFICE SUPPORT ASSISTANT Erythrocytes 2.39 (L) 3.92 - 03/22/2021 [facility] 5.13 9:11 AM OFFICE SUPPORT ASSISTANT x10(12)/L MCV 94.6 78.2 - 03/22/2021 [facility] 97.9 fL 9:11 AM OFFICE SUPPORT ASSISTANT RBC Distrib Width 21.6 (H) 12.2 - 03/22/2021 [facility] 16.1 % 9:11 AM OFFICE SUPPORT ASSISTANT Platelet Count 98 (L) 157 - 371 03/22/2021 [facility] x10(9)/L 9:11 AM OFFICE SUPPORT ASSISTANT Leukocytes 9.0 3.4 - 9.6 03/22/2021 [facility] x10(9)/L 9:11 AM OFFICE SUPPORT ASSISTANT Specimen Anatomical Collection Method Collection Time Receive d Time (Source) Location / / Volume Laterality Blood (Blood, 03/22/2021 8:38 AM 03/22/20 8:50 Venous) OFFICE SUPPORT ASSISTANT AM OFFICE SUPPORT ASSISTANT Darian Thomas M.D., J.D. LAB BLOOD ADD-ON Performing Organization Address [facility] Phon e Number [address] [address] [facility] [place] [phone] System in [address] Phosphorus Inorganic (03/22/2021 8:33 AM OFFICE SUPPORT ASSISTANT) athologist Signature Phosphorus 2.7 2.5 - 4.5 03/22/2021 [facility] (Inorganic), P mg/dL 2:17 PM OFFICE SUPPORT ASSISTANT Specimen Anatomical Collection Method Collection Time Receive d Time (Source) Location / / Volume Laterality Blood (Blood, 03/22/2021 8:33 AM 03/22/20 2:07 Venous) OFFICE SUPPORT ASSISTANT PM OFFICE SUPPORT ASSISTANT Darian Thomas M.D., J.D. LAB BLOOD ADD-ON Performing Organization Address [facility] Phon e Number [address] [address] [place] [address] (ABNORMAL) Magnesium (03/22/2021 8:33 AM OFFICE SUPPORT ASSISTANT) P athologist Signature Magnesium, P 1.6 (L) 1.7 - 2.3 03/22/2021 [facility] mg/dL 2:17 PM OFFICE SUPPORT ASSISTANT Specimen Anatomical Collection Method Collection Time Receive d Time (Source) Location / / Volume Laterality Blood (Blood, 03/22/2021 8:33 AM 03/22/20 2:07 Venous) OFFICE SUPPORT ASSISTANT PM OFFICE SUPPORT ASSISTANT Darian Thomas M.D., J.D. LAB BLOOD ADD-ON Performing Organization Address City/[facility] Hospital/ZIP Code Phon e Number [facility]- [address] [place] [phone] [place] [address] EEG ROUTINE (03/21/2021 4:43 PM OFFICE SUPPORT ASSISTANT) Specimen (Source) Anatomical Location Collection Method / Collectio n Time Received Time / Laterality Volume Narrative MMODAL - 03/21/2021 5:13 PM OFFICE SUPPORT ASSISTANT Clinical Interpretation: The short-term video EEG shows [...] M.D., M.P.H. NEUROLOGY ORDERABLES Performing Organization Address City/[facility] Hospital/ZIP Code Phon e Number MMODAL MMODAL NA CT Abdomen Pelvis without IV Contrast (03/21/2021 12:42 PM OFFICE SUPPORT ASSISTANT) Anatomical Region Laterality Modality Abdomen, Pelvis, Abdominal RST LOS, Abdominal ARZ LOS, N/A Computed Tomography Abdominal FLA LOS Specimen (Source) Anatomical Collection Method Collection Time Re ceived Time Location / / Volume Laterality 03/21/2021 1:09 PM OFFICE SUPPORT ASSISTANT Impressions 03/21/2021 1:19 PM OFFICE SUPPORT ASSISTANT 1. Slight interval DECREASE in abdominal ascites, however attenuation values have slightly increased, and are indeter minate, raising the possibility that there is blood within this free peritone al fluid. Consider paracentesis 2. No CT evidence for retroperitoneal he morrhage. Narrative 03/21/2021 1:19 PM OFFICE SUPPORT ASSISTANT EXAM: CT ABDOMEN PELVIS WITHOUT IV CONTRAST [...] Head without IV Contrast (03/21/2021 12:42 PM OFFICE SUPPORT ASSISTANT) Anatomical Region Laterality Modality Head, Neuroradiology RST LOS, Neuroradiology ARZ LOS, N/A Computed Tomography Neuroradiology FLA LOS Specimen (Source) Anatomical Collection Method Collection Time Re ceived Time Location / / Volume Laterality 03/21/2021 1:08 PM OFFICE SUPPORT ASSISTANT Impressions 03/21/2021 1:09 PM OFFICE SUPPORT ASSISTANT No acute intracranial pathology Narrative 03/21/2021 1:09 PM OFFICE SUPPORT ASSISTANT EXAM: CT HEAD WITHOUT IV CONTRAST COMPARISON: [...] PROCEDURES ECG 12 Lead (03/21/2021 10:06 AM OFFICE SUPPORT ASSISTANT) P athologist Signature Ventricular Rate 92 BPM MUSE ECG/Min IA Interval 148 ms MUSE QRSD Interval 82 ms MUSE QT Interval 342 ms MUSE QTC Interval 422 ms MUSE P [place] 0 degrees MUSE R [place] 58 degrees MUSE T Wave [place] 12 degrees MUSE Specimen Anatomical Collection Method Collection Time Receive d Time (Source) Location / / Volume Laterality 03/21/2021 10:06 03/21/2021 AM OFFICE SUPPORT ASSISTANT 10:09 AM OFFICE SUPPORT ASSISTANT Impressions MUSE - 03/21/2021 10:10 AM OFFICE SUPPORT ASSISTANT Normal sinus rhythm Nonspecific T wave abnormality [...] (ABNORMAL) Comprehensive Metabolic Panel (03/21/2021 5:44 AM OFFICE SUPPORT ASSISTANT) Analysis Performed At Patho logist Time Signature Potassium, P 3.8 3.6 - 5.2 03/21/2021 [facility] mmol/L 6:33 AM OFFICE SUPPORT ASSISTANT Sodium, P 141 135 - 145 03/21/2021 [facility] mmol/L 6:33 AM OFFICE SUPPORT ASSISTANT Chloride, P 108 (H) 98 - 107 03/21/2021 [facility] mmol/L 6:33 AM OFFICE SUPPORT ASSISTANT Bicarbonate, P 19 (L) 22 - 29 03/21/2021 [facility] mmol/L 6:33 AM OFFICE SUPPORT ASSISTANT Anion Gap, P 14 7 - 15 03/21/2021 [facility] 6:33 AM OFFICE SUPPORT ASSISTANT BUN (Blood Urea 4 (L) 6 - 21 03/21/2021 [facility] Nitrogen), P mg/dL 6:33 AM OFFICE SUPPORT ASSISTANT Creatinine 0.38 (L) 0.59 - 03/21/2021 [facility] 1.04 mg/dL 6:33 AM OFFICE SUPPORT ASSISTANT eGFR-Black/Afri >90 >=60 03/21/2021 [facility] can Afghan mL/min/BSA 6:33 AM OFFICE SUPPORT ASSISTANT Comment: ----ADDITIONAL INFORMATION---- Estimated GFR calculated using the 2009 CKD_EPI creatinine equation. eGFR Non-Black/ >90 >=60 mL/min/BSA 03/21/2021 6:33 AM OFFICE SUPPORT ASSISTANT MKTO Comment: ----ADDITIONAL INFORMATION---- Estimated GFR calculated using the 2009 CKD_EPI creatinine equation. Calcium, Total, P 10.3 (H) 8.6 - 10.0 mg/dL 03/21/2021 6:33 AM [facility] OFFICE SUPPORT ASSISTANT Glucose, P 104 70 - 140 mg/dL 03/21/2021 6:33 AM [facility] OFFICE SUPPORT ASSISTANT Protein, Total, P 6.2 (L) 6.3 - 7.9 g/dL 03/21/2021 6:33 A M MKTO OFFICE SUPPORT ASSISTANT Albumin, P 5.2 (H) 3.5 - 5.0 g/dL 03/21/2021 6:33 AM [facility] OFFICE SUPPORT ASSISTANT Aspartate Aminotransferase SEE COMMENT 8 - 43 U/L 03/21/2021 6:43 AM [facility] (AST), P OFFICE SUPPORT ASSISTANT Comment: Specimen was hemolyzed. Alkaline Phosphatase, P 52 35 - 104 U/L 03/21/2021 6: 33 AM OFFICE SUPPORT ASSISTANT MKTO Alanine Aminotransferase (ALT), 19 7 - 45 U/L 021 6:33 AM OFFICE SUPPORT ASSISTANT MKTO P Bilirubin, Total, P 5.8 (H) <=1.2 mg/dL 03/21/2021 6:33 AM OFFICE SUPPORT ASSISTANT MKTO Specimen Anatomical Collection Method Collection Time Receive d Time (Source) Location / / Volume Laterality Blood (Blood, 03/21/2021 5:44 AM 03/21/20 5:50 Venous) OFFICE SUPPORT ASSISTANT AM OFFICE SUPPORT ASSISTANT Darian Thomas M.D., J.D. LAB BLOOD ADD-ON Performing Organization Address City/State/ZIP Code Phon e Number [facility]- [facility] [place] [address] [place] [address] System in [place] [address] [place] [address] Lactate, B (03/21/2021 5:43 AM OFFICE SUPPORT ASSISTANT) P athologist Signature Lactate, B 1.7 0.5 - 2.2 03/21/2021 [facility] mmol/L 5:56 AM OFFICE SUPPORT ASSISTANT Specimen Anatomical Collection Method Collection Time Receive d Time (Source) Location / / Volume Laterality Blood 03/21/2021 5:43 AM 5:50 OFFICE SUPPORT ASSISTANT AM OFFICE SUPPORT ASSISTANT Alka Cordero P.A.-C. MSumaSSuma LAB BLOOD NON ADD-ON Performing Organization Address City/[facility] Hospital/[facility] Phon e Number [facility]- [address] [place] [phone] [place] [address] [address] (ABNORMAL) CBC without Differential (03/21/2021 5:43 AM OFFICE SUPPORT ASSISTANT) [facility] Method Time Signature Hemoglobin 7.0 (L) 11.6 - 03/21/2021 [facility] 15.0 g/dL 6:09 AM OFFICE SUPPORT ASSISTANT Hematocrit 21.2 (L) 35.5 - 03/21/2021 [facility] 44.9 % 6:09 AM OFFICE SUPPORT ASSISTANT Erythrocytes 2.35 (L) 3.92 - 03/21/2021 [facility] 5.13 6:09 AM OFFICE SUPPORT ASSISTANT x10(12)/L MCV 90.2 78.2 - 03/21/2021 [facility] 97.9 fL 6:09 AM OFFICE SUPPORT ASSISTANT RBC Distrib Width 21.1 (H) 12.2 - 03/21/2021 [facility] 16.1 % 6:09 AM OFFICE SUPPORT ASSISTANT Platelet Count 91 (L) 157 - 371 03/21/2021 [facility] x10(9)/L 6:09 AM OFFICE SUPPORT ASSISTANT Leukocytes 7.8 3.4 - 9.6 03/21/2021 [facility] x10(9)/L 6:09 AM OFFICE SUPPORT ASSISTANT Specimen Anatomical Collection Method Collection Time Receive d Time (Source) Location / / Volume Laterality Blood (Blood, 03/21/2021 5:43 AM 03/21/20 5:50 Venous) OFFICE SUPPORT ASSISTANT AM OFFICE SUPPORT ASSISTANT Darian Thomas M.D., J.D. LAB BLOOD ADD-ON Performing Organization Address City/[facility] Phon e Number [facility]- [address] [place] [phone] [place] [address] (ABNORMAL) Prothrombin Time (PT) (03/21/2021 5:43 AM OFFICE SUPPORT ASSISTANT) [facility] Method Time Signature Prothrombin 29.0 (H) 9.4 - 12.5 03/21/2021 [facility] Time, P sec 6:02 AM OFFICE SUPPORT ASSISTANT INR 2.6 0.9 - 1.1 03/21/2021 [facility] 6:02 AM OFFICE SUPPORT ASSISTANT Comment: ----ADDITIONAL INFORMATION---- Standard intensity warfarin therapeutic range: 2.0 to 3.0 ?? High intensity warfarin therapeutic rang e: 2.5 to 3.5 Specimen Anatomical Collection Method Collection Time Receive d Time (Source) Location / / Volume Laterality Blood (Blood, 03/21/2021 5:43 AM 03/21/20 5:50 Venous) OFFICE SUPPORT ASSISTANT AM OFFICE SUPPORT ASSISTANT Keerthi Guzman M.D. LAB BLOOD ADD-ON Performing Organization Address City/[facility]/ZIP [facility] [place]on e Number [facility]- [address] [place] [address] (ABNORMAL) Lactate, B (03/20/2021 10:32 PM OFFICE SUPPORT ASSISTANT) P athologist Signature Lactate, B 4.1 (H) 0.5 - 2.2 03/20/2021 [facility] mmol/L 10:44 PM OFFICE SUPPORT ASSISTANT Specimen Anatomical Collection Method Collection Time Receive d Time (Source) Location / / Volume Laterality Blood 03/20/2021 10:32 03/20/2021 PM OFFICE SUPPORT ASSISTANT 10:39 PM OFFICE SUPPORT ASSISTANT Alka Cordero P.A.-C., M.S. LAB BLOOD NON ADD-ON Performing Organization Address City/[facility] Phon e Number [facility]- [address] [place], [place] [phone] [place] [address] [address] (ABNORMAL) Comprehensive Metabolic Panel (03/20/2021 10:32 PM OFFICE SUPPORT ASSISTANT) Analysis Performed At Patho logist Time Signature Potassium, P 3.6 3.6 - 5.2 03/20/2021 [facility] mmol/L 11:16 PM OFFICE SUPPORT ASSISTANT Sodium, P 141 135 - 145 03/20/2021 [facility] mmol/L 11:16 PM OFFICE SUPPORT ASSISTANT Chloride, P 107 98 - 107 03/20/2021 [facility] mmol/L 11:16 PM OFFICE SUPPORT ASSISTANT Bicarbonate, P 17 (L) 22 - 29 03/20/2021 [facility] mmol/L 11:16 PM OFFICE SUPPORT ASSISTANT Anion Gap, P 17 (H) 7 - 15 03/20/2021 [facility] 11:16 PM OFFICE SUPPORT ASSISTANT BUN (Blood Urea 4 (L) 6 - 21 03/20/2021 [facility] Nitrogen), P mg/dL 11:16 PM OFFICE SUPPORT ASSISTANT Creatinine 0.43 (L) 0.59 - 03/20/2021 [facility] 1.04 mg/dL 11:16 PM OFFICE SUPPORT ASSISTANT eGFR-Black/Afri >90 >=60 03/20/2021 [facility] can Afghan mL/min/BSA 11:16 PM OFFICE SUPPORT ASSISTANT Comment: ----ADDITIONAL INFORMATION---- Estimated GFR calculated using the 2009 CKD_EPI creatinine equation. eGFR Non-Black/ >90 >=60 mL/min/BSA 03/20/2021 11:16 PM OFFICE SUPPORT ASSISTANT MKTO Comment: ----ADDITIONAL INFORMATION---- Estimated GFR calculated using the 2009 CKD_EPI creatinine equation. Calcium, Total, P 10.6 (H) 8.6 - 10.0 mg/dL 03/20/2021 11:1 6 PM [facility] OFFICE SUPPORT ASSISTANT Glucose, P 117 70 - 140 mg/dL 03/20/2021 11:16 PM [facility] OFFICE SUPPORT ASSISTANT Protein, Total, P 6.8 6.3 - 7.9 g/dL 03/20/2021 11:16 PM [facility] OFFICE SUPPORT ASSISTANT Albumin, P 5.6 (H) 3.5 - 5.0 g/dL 03/20/2021 11:16 PM [facility] OFFICE SUPPORT ASSISTANT Aspartate Aminotransferase 56 (H) 8 - 43 U/L 03/20/2021 1 1:16 PM [facility] (AST), P OFFICE SUPPORT ASSISTANT Alkaline Phosphatase, P 59 35 - 104 U/L 03/20/2021 11 :16 PM [facility] OFFICE SUPPORT ASSISTANT Alanine Aminotransferase 21 7 - 45 U/L 03/20/2021 11: 16 PM [facility] (ALT), P OFFICE SUPPORT ASSISTANT Bilirubin, Total, P 6.0 (H) <=1.2 mg/dL 03/20/2021 11:16 P M MKTO OFFICE SUPPORT ASSISTANT Specimen Anatomical Collection Method Collection Time Receive d Time (Source) Location / / Volume Laterality Blood (Blood, 03/20/2021 10:32 03/20/2021 Venous) PM OFFICE SUPPORT ASSISTANT 10:39 PM OFFICE SUPPORT ASSISTANT Alka Cordero P.A.-C., M.S. LAB BLOOD ADD-ON Performing Organization Address City/[facility] Hospital/ZIP Code Phon e Number [facility]- [address] [place] [phone] [place] [address] (ABNORMAL) Ammonia (03/20/2021 10:32 PM OFFICE SUPPORT ASSISTANT) P athologist Signature Ammonia, P 63 (H) <=51 03/20/2021 [facility] mcmol/L 11:02 PM OFFICE SUPPORT ASSISTANT Specimen Anatomical Collection Method Collection Time Receive d Time (Source) Location / / Volume Laterality Blood (Blood, 03/20/2021 10:32 03/20/2021 Venous) PM OFFICE SUPPORT ASSISTANT 10:38 PM OFFICE SUPPORT ASSISTANT Alka Cordero P.A.-C., M.S. LAB BLOOD NON ADD-ON Performing Organization Address [facility] Phon e Number [facility]- [address] [place] [phone] [place] [address] CK (Creatine Kinase) (03/20/2021 10:32 PM OFFICE SUPPORT ASSISTANT) P athologist Signature Creatine 40 26 - 192 03/20/2021 [facility] Kinase, P U/L 11:16 PM OFFICE SUPPORT ASSISTANT Specimen Anatomical Collection Method Collection Time Receive d Time (Source) Location / / Volume Laterality Blood (Blood, 03/20/2021 10:32 03/20/2021 Venous) PM OFFICE SUPPORT ASSISTANT 10:39 PM OFFICE SUPPORT ASSISTANT Alka Cordero P.A.-C., M.S. LAB BLOOD ADD-ON Performing Organization Address [facility] Phon e Number [facility]- [address] [place] [phone] [place] [address] [address] (ABNORMAL) CBC with Differential, Blood (03/20/2021 10:32 PM OFFICE SUPPORT ASSISTANT) Patholo gist Method Time Signature Hemoglobin 7.5 (L) 11.6 - 03/20/2021 [facility] 15.0 g/dL 10:43 PM OFFICE SUPPORT ASSISTANT Hematocrit 22.5 (L) 35.5 - 03/20/2021 [facility] 44.9 % 10:43 PM OFFICE SUPPORT ASSISTANT Erythrocytes 2.44 (L) 3.92 - 03/20/2021 [facility] 5.13 10:43 PM OFFICE SUPPORT ASSISTANT x10(12)/L MCV 92.2 78.2 - 03/20/2021 [facility] 97.9 fL 10:43 PM OFFICE SUPPORT ASSISTANT RBC Distrib Width 20.9 (H) 12.2 - 03/20/2021 [facility] 16.1 % 10:43 PM OFFICE SUPPORT ASSISTANT Platelet Count 84 (L) 157 - 371 03/20/2021 [facility] x10(9)/L 10:43 PM OFFICE SUPPORT ASSISTANT Leukocytes 8.4 3.4 - 9.6 03/20/2021 [facility] x10(9)/L 10:43 PM OFFICE SUPPORT ASSISTANT Neutrophils 6.38 1.56 - 03/20/2021 [facility] 6.45 10:43 PM OFFICE SUPPORT ASSISTANT x10(9)/L Lymphocytes 1.10 0.95 - 03/20/2021 [facility] 3.07 10:43 PM OFFICE SUPPORT ASSISTANT x10(9)/L Monocytes 0.75 0.26 - 03/20/2021 [facility] 0.81 10:43 PM OFFICE SUPPORT ASSISTANT x10(9)/L Eosinophils 0.10 0.03 - 03/20/2021 [facility] 0.48 10:43 PM OFFICE SUPPORT ASSISTANT x10(9)/L Basophils <0.03 0.01 - 03/20/2021 [facility] 0.08 10:43 PM OFFICE SUPPORT ASSISTANT x10(9)/L Specimen Anatomical Collection Method Collection Time Receive d Time (Source) Location / / Volume Laterality Blood (Blood, 03/20/2021 10:32 03/20/2021 Venous) PM OFFICE SUPPORT ASSISTANT 10:39 PM OFFICE SUPPORT ASSISTANT Alka Cordero P.A.-C., M.S. LAB BLOOD ADD-ON Performing Organization Address City/State/ZIP Code Phon e Number [facility]- [address] [place] [phone] [place] [address] System in [place] [address] [place] [address] Glucose, POCT (03/20/2021 9:03 PM OFFICE SUPPORT ASSISTANT) athologist Signature Glucose, POCT, 131 70 - 140 03/20/2021 [facility] B mg/dL 9:03 PM OFFICE SUPPORT ASSISTANT Specimen Anatomical Collection Method Collection Time Receive d Time (Source) Location / / Volume Laterality Blood 03/20/2021 9:03 PM 9:11 OFFICE SUPPORT ASSISTANT PM OFFICE SUPPORT ASSISTANT Generic Rals LAB POCT ORDERABLES-MANUAL Performing Organization Address [facility] Phon e Number [facility]- [address] [place] [phone] [place] [address] Phosphorus Inorganic (03/20/2021 7:40 AM OFFICE SUPPORT ASSISTANT) P athologist Signature Phosphorus 3.1 2.5 - 4.5 03/20/2021 [facility] (Inorganic), P mg/dL 8:31 AM OFFICE SUPPORT ASSISTANT Specimen Anatomical Collection Method Collection Time Receive d Time (Source) Location / / Volume Laterality Blood 03/20/2021 7:40 AM 7:46 OFFICE SUPPORT ASSISTANT AM OFFICE SUPPORT ASSISTANT Keerthi Guzman M.D. LAB BLOOD ADD-ON Performing Organization Address City/[facility] Phon e Number [facility]- [address] [place] [phone] [place] [address] (ABNORMAL) Blood Gas with Coox, Venous (03/20/2021 7:40 AM OFFICE SUPPORT ASSISTANT) Patholo gist Method Time Signature Venous pO2 56 Not applicable 03/20/2021 [facility] mm Hg 7:59 AM OFFICE SUPPORT ASSISTANT Venous pCO2 30 (L) 41 - 51 mm Hg 03/20/2021 MKTO 7:59 AM OFFICE SUPPORT ASSISTANT Venous pH 7.48 (H) 7.32 - 7.43 pH 03/20/2021 MKTO 7:59 AM OFFICE SUPPORT ASSISTANT Venous Base -1 Not applicable 03/20/2021 [facility] Excess mmol/L 7:59 AM OFFICE SUPPORT ASSISTANT HCO3 22 Not applicable 03/20/2021 [facility] mmol/L 7:59 AM OFFICE SUPPORT ASSISTANT Hemoglobin, B 7.8 (L) 11.6 - 15.0 03/20/2021 [facility] g/dL 7:59 AM OFFICE SUPPORT ASSISTANT O2Hb 88.2 Not applicable 03/20/2021 MK[facility] % 7:59 AM OFFICE SUPPORT ASSISTANT COHb 1.8 <3.0 % 03/20/2021 [facility] 7:59 AM OFFICE SUPPORT ASSISTANT MetHb 0.6 <1.5 % 03/20/2021 [facility] 7:59 AM OFFICE SUPPORT ASSISTANT CtO2 9.7 Not Applicable 03/20/2021 [facility] vol % 7:59 AM OFFICE SUPPORT ASSISTANT Specimen Anatomical Collection Method Collection Time Receive d Time (Source) Location / / Volume Laterality Blood (Blood, 03/20/2021 7:40 AM 03/20/20 7:46 Venous) OFFICE SUPPORT ASSISTANT AM OFFICE SUPPORT ASSISTANT Darian Thomas M.D., J.D. LAB BLOOD NON ADD-ON Performing Organization Address City/[facility] Hospital/ZIP Code Phon e Number [facility]- [address] [place] [phone] [place] [address] Magnesium (03/20/2021 7:40 AM OFFICE SUPPORT ASSISTANT) P athologist Signature Magnesium, P 2.3 1.7 - 2.3 03/20/2021 [facility] mg/dL 8:31 AM OFFICE SUPPORT ASSISTANT Specimen Anatomical Collection Method Collection Time Receive d Time (Source) Location / / Volume Laterality Blood 03/20/2021 7:40 AM 7:46 OFFICE SUPPORT ASSISTANT AM OFFICE SUPPORT ASSISTANT Keerthi Guzman M.D. LAB BLOOD ADD-ON Performing Organization Address City/[facility]/ZIP Code Phon e Number [facility]- [address] [place] [phone] [place] [address] [address] Calcium, Ionized (03/20/2021 7:40 AM OFFICE SUPPORT ASSISTANT) P athologist Signature Calcium, 5.07 4.65 - 5.30 03/20/2021 [facility] Ionized, B mg/dL 7:59 AM OFFICE SUPPORT ASSISTANT Specimen Anatomical Collection Method Collection Time Receive d Time (Source) Location / / Volume Laterality Blood 03/20/2021 7:40 AM 7:46 OFFICE SUPPORT ASSISTANT AM OFFICE SUPPORT ASSISTANT Keerthi Guzman M.D. LAB BLOOD NON ADD-ON Performing Organization Address City/State/ZIP Code Phon e Number [facility]- [address] [place] [phone] [place] [address] (ABNORMAL) pH (03/20/2021 7:40 AM OFFICE SUPPORT ASSISTANT) P athologist Signature pH 7.48 (H) 7.35 - 7.45 03/20/2021 [facility] pH 7:59 AM OFFICE SUPPORT ASSISTANT Specimen Anatomical Collection Method Collection Time Receive d Time (Source) Location / / Volume Laterality Blood 03/20/2021 7:40 AM 1 7:46 OFFICE SUPPORT ASSISTANT AM OFFICE SUPPORT ASSISTANT Keerthi Guzman M.D. LAB HISTORICAL ORDERS Performing Organization Address City/[facility] Hospital/ZIP Code Phon e Number [facility]- [address] [place] [phone] [place] [address] Lactate, B (03/20/2021 7:40 AM OFFICE SUPPORT ASSISTANT) P athologist Signature Lactate, B 1.0 0.5 - 2.2 03/20/2021 [facility] mmol/L 7:59 AM OFFICE SUPPORT ASSISTANT Specimen Anatomical Collection Method Collection Time Receive d Time (Source) Location / / Volume Laterality Blood 03/20/2021 7:40 AM 1 7:46 OFFICE SUPPORT ASSISTANT AM OFFICE SUPPORT ASSISTANT Keerthi Guzman M.D. LAB BLOOD NON ADD-ON Performing Organization Address City/[facility]/ZIP [facility] Phon e Number [facility]- [address] [place] [phone] [place] [address] (ABNORMAL) CBC without Differential (03/20/2021 7:40 AM OFFICE SUPPORT ASSISTANT) Patholo gist Method Time Signature Hemoglobin 7.6 (L) 11.6 - 03/20/2021 [facility] 15.0 g/dL 8:13 AM OFFICE SUPPORT ASSISTANT Hematocrit 23.4 (L) 35.5 - 03/20/2021 [facility]TO 44.9 % 8:13 AM OFFICE SUPPORT ASSISTANT Erythrocytes 2.54 (L) 3.92 - 03/20/2021 [facility] 5.13 8:13 AM OFFICE SUPPORT ASSISTANT x10(12)/L MCV 92.1 78.2 - 03/20/2021 [facility] 97.9 fL 8:13 AM OFFICE SUPPORT ASSISTANT RBC Distrib Width 20.5 (H) 12.2 - 03/20/2021 [facility] 16.1 % 8:13 AM OFFICE SUPPORT ASSISTANT Platelet Count 94 (L) 157 - 371 03/20/2021 [facility] x10(9)/L 8:13 AM OFFICE SUPPORT ASSISTANT Leukocytes 5.9 3.4 - 9.6 03/20/2021 [facility] x10(9)/L 8:13 AM OFFICE SUPPORT ASSISTANT Specimen Anatomical Collection Method Collection Time Receive d Time (Source) Location / / Volume Laterality Blood (Blood, 03/20/2021 7:40 AM 03/20/20 7:46 Venous) OFFICE SUPPORT ASSISTANT AM OFFICE SUPPORT ASSISTANT Keerthi Guzman M.D. LAB BLOOD ADD-ON Performing Organization Address City/State/ZIP Code Phon e Number [facility]- [address] [place] [phone] [place] [address] [place] [address] System in [place] [address] [place] [address] (ABNORMAL) Comprehensive Metabolic Panel (03/20/2021 7:40 AM OFFICE SUPPORT ASSISTANT) Analysis Performed At Patho logist Time Signature Potassium, P 3.3 (L) 3.6 - 5.2 03/20/2021 [facility] mmol/L 8:31 AM OFFICE SUPPORT ASSISTANT Sodium, P 142 135 - 145 03/20/2021 [facility] mmol/L 8:31 AM OFFICE SUPPORT ASSISTANT Chloride, P 108 (H) 98 - 107 03/20/2021 [facility] mmol/L 8:31 AM OFFICE SUPPORT ASSISTANT Bicarbonate, P 20 (L) 22 - 29 03/20/2021 [facility] mmol/L 8:31 AM OFFICE SUPPORT ASSISTANT Anion Gap, P 14 7 - 15 03/20/2021 [facility] 8:31 AM OFFICE SUPPORT ASSISTANT BUN (Blood Urea 4 (L) 6 - 21 03/20/2021 MKTO Nitrogen), P mg/dL 8:31 AM OFFICE SUPPORT ASSISTANT Creatinine 0.35 (L) 0.59 - 03/20/2021 [facility] 1.04 mg/dL 8:31 AM OFFICE SUPPORT ASSISTANT eGFR-Black/Afri >90 >=60 03/20/2021 MKTO can Afghan mL/min/BSA 8:32 AM OFFICE SUPPORT ASSISTANT Comment: ----ADDITIONAL INFORMATION---- Estimated GFR calculated using the 2009 CKD_EPI creatinine equation. eGFR Non-Black/ >90 >=60 mL/min/BSA 03/20/2021 8:32 AM OFFICE SUPPORT ASSISTANT MKTO Comment: ----ADDITIONAL INFORMATION---- Estimated GFR calculated using the 2009 CKD_EPI creatinine equation. Calcium, Total, P 10.2 (H) 8.6 - 10.0 mg/dL 03/20/2021 8:31 AM OFFICE SUPPORT ASSISTANT MKTO Glucose, P 107 70 - 140 mg/dL 03/20/2021 8:31 AM OFFICE SUPPORT ASSISTANT M KTO Protein, Total, P 6.3 6.3 - 7.9 g/dL 03/20/2021 8:31 A M OFFICE SUPPORT ASSISTANT MKTO Albumin, P 5.3 (H) 3.5 - 5.0 g/dL 03/20/2021 8:31 AM OFFICE SUPPORT ASSISTANT M KTO Aspartate Aminotransferase 38 8 - 43 U/L 03/20/2021 8 :31 AM OFFICE SUPPORT ASSISTANT MKTO (AST), P Alkaline Phosphatase, P 50 35 - 104 U/L 03/20/2021 8: 31 AM OFFICE SUPPORT ASSISTANT MKTO Alanine Aminotransferase 11 7 - 45 U/L 03/20/2021 8:3 1 AM OFFICE SUPPORT ASSISTANT MKTO (ALT), P Bilirubin, Total, P 6.0 (H) <=1.2 mg/dL 03/20/2021 8:31 AM OFFICE SUPPORT ASSISTANT MKTO Specimen Anatomical Collection Method Collection Time Receive d Time (Source) Location / / Volume Laterality Blood (Blood, 03/20/2021 7:40 AM 03/20/20 7:46 Venous) OFFICE SUPPORT ASSISTANT AM OFFICE SUPPORT ASSISTANT Keerthi Guzman M.D. LAB BLOOD ADD-ON Performing Organization Address City/State/ZIP Code Phon e Number [facility]- [address] [place] [phone] [place] [address] [place] [address] [address] (ABNORMAL) Prothrombin Time (PT) (03/20/2021 7:40 AM OFFICE SUPPORT ASSISTANT) [facility] gist Method Time Signature Prothrombin 27.0 (H) 9.4 - 12.5 03/20/2021 [facility] Time, P sec 8:13 AM OFFICE SUPPORT ASSISTANT INR 2.4 0.9 - 1.1 03/20/2021 TO 8:13 AM OFFICE SUPPORT ASSISTANT Comment: ----ADDITIONAL INFORMATION---- Standard intensity warfarin therapeutic range: 2.0 to 3.0 ?? High intensity warfarin therapeutic rang e: 2.5 to 3.5 Specimen Anatomical Collection Method Collection Time Receive d Time (Source) Location / / Volume Laterality Blood (Blood, 03/20/2021 7:40 AM 03/20/20 7:46 Venous) OFFICE SUPPORT ASSISTANT AM OFFICE SUPPORT ASSISTANT Keerthi Guzman M.D. LAB BLOOD ADD-ON Performing Organization Address City/State/ZIP Code Phon e Number [facility]- [address] [place] [phone] [place] [address] Transfuse Fresh Frozen Plasma :INR >2: Invasive proc scheduled; 180 mL/hr (03/19/2021 6:37 PM OFFICE SUPPORT ASSISTANT) Keerthi Guzman M.D. BLOOD TRANSFUSION ORDERABLES Transfuse Fresh Frozen Plasma :INR >2: Invasive proc scheduled; 180 mL/hr, 1 Units (03/19/2021 6:37 PM OFFICE SUPPORT ASSISTANT) Keerthi Guzman M.D. BLOOD TRANSFUSION ORDERABLES Transfuse Red Blood Cells : (03/19/2021 3:21 PM OFFICE SUPPORT ASSISTANT) Darian Thomas M.D., J.D. BLOOD TRANSFUSION ORDERAB LES Transfuse Red Blood Cells : , 1 Units (03/19/2021 3:21 PM OFFICE SUPPORT ASSISTANT) Darian Thomas M.D., J.D. BLOOD TRANSFUSION ORDERAB LES (ABNORMAL) 25-Hydroxyvitamin D2 and D3 (03/19/2021 3:04 PM OFFICE SUPPORT ASSISTANT) P athologist Signature 25-Hydroxy D2 <4.0 ng/mL 03/24/2021 SDSC 4:43 PM OFFICE SUPPORT ASSISTANT 25-Hydroxy D3 3.2 ng/mL 03/24/2021 SDSC 4:43 PM OFFICE SUPPORT ASSISTANT 25-Hydroxy D <6.0 (L) ng/mL 03/24/2021 SDSC Total 4:43 PM OFFICE SUPPORT ASSISTANT Comment: Interpretation: <10 ng/mL (severe defici ency) ----REFERENCE VALUE---- 25-HYDROXY D TOTAL (D2+D3) Optimum level s in the healthy population are 20-50, patients with bone disease may benefit from higher levels within this r vinh. ----ADDITIONAL INFORMATION---- This test was developed and its performa nce characteristics determined by [facility] in a manner consistent with CLIA requirements. This test has not been cleared or approved by the [place] and Drug Administration. Specimen Anatomical Collection Method Collection Time Receive d Time (Source) Location / / Volume Laterality Blood (Blood, 03/19/2021 3:04 PM 03/20/20 21 7:18 Venous) OFFICE SUPPORT ASSISTANT AM OFFICE SUPPORT ASSISTANT Keerthi Guzman M.D. LAB BLOOD ADD-ON Performing Organization Address City/[facility] Code Phon e Number [facility] [address] [place], [place] [address] [place], [place] [address] [address] Laboratory Medicine and Pathology [address] [place] Parathyroid Hormone (PTH) (03/19/2021 3:04 PM OFFICE SUPPORT ASSISTANT) athologist Signature Parathyroid 44 15 - 65 03/19/2021 TO Hormone (PTH), S pg/mL 4:17 PM OFFICE SUPPORT ASSISTANT Comment: Biotin has been identified by the [facility] as a potential interfering substance. ??Higher concentr ations of biotin may be found in multivitamins, hair/nail supple ments, and workout supplements. ??If the result does not [facility] clinical observations, repeat testing after patient refrains fr om the use of supplements for at least 12 hours. Specimen Anatomical Collection Method Collection Time Receive d Time (Source) Location / / Volume Laterality Blood (Blood, 03/19/2021 3:04 PM 03/19/20 21 3:09 Venous) OFFICE SUPPORT ASSISTANT PM OFFICE SUPPORT ASSISTANT Keerthi Guzman M.D. LAB BLOOD ADD-ON Performing Organization Address City/[facility] Code Phon e Number [facility]- [address] [place] [phone] [place] [address] [place] [address] System [address] (ABNORMAL) pH (03/19/2021 3:04 PM OFFICE SUPPORT ASSISTANT) athologist Signature pH 7.51 (H) 7.35 - 7.45 03/19/2021 MKTO pH 3:13 PM OFFICE SUPPORT ASSISTANT Specimen Anatomical Collection Method Collection Time Receive d Time (Source) Location / / Volume Laterality Blood 03/19/2021 3:04 PM 1 3:09 OFFICE SUPPORT ASSISTANT PM OFFICE SUPPORT ASSISTANT Darian Thomas M.D., J.D. LAB HISTORICAL ORDERS Performing Organization Address City/State/ZIP Code Phon e Number [facility]- [address] [place] [address] [place] [address] System in [place] [address] [place] [address] Calcium, Ionized (03/19/2021 3:04 PM OFFICE SUPPORT ASSISTANT) athologist Signature Calcium, 4.88 4.65 - 5.30 03/19/2021 MKTO Ionized, B mg/dL 3:13 PM OFFICE SUPPORT ASSISTANT Specimen Anatomical Collection Method Collection Time Receive d Time (Source) Location / / Volume Laterality Blood 03/19/2021 3:04 PM 3:09 OFFICE SUPPORT ASSISTANT PM OFFICE SUPPORT ASSISTANT Darian Thomas M.D., J.D. LAB BLOOD NON ADD-ON Performing Organization Address City/[facility] Hospital/ZIP Code Phon e Number [facility]- [address] [place] [address] [place] [address] System in [place] [address] [place] [address] (ABNORMAL) Potassium (03/19/2021 3:04 PM OFFICE SUPPORT ASSISTANT) athologist Signature Potassium, P 3.5 (L) 3.6 - 5.2 03/19/2021 MKTO mmol/L 3:36 PM OFFICE SUPPORT ASSISTANT Specimen Anatomical Collection Method Collection Time Receive d Time (Source) Location / / Volume Laterality Blood (Blood, 03/19/2021 3:04 PM 03/19/20 21 3:09 Venous) OFFICE SUPPORT ASSISTANT PM OFFICE SUPPORT ASSISTANT Keerthi Guzman M.D. LAB BLOOD ADD-ON Performing Organization Address City/[facility] Hospital/ZIP Code Phon e Number [facility]- [address] [place] [phone] [place] [address] (TTE) 2D ECHO DOPPLER COLOR AND CONTRAST (03/19/2021 12:39 PM OFFICE SUPPORT ASSISTANT) [facility] Method Time Signature Ejection Fraction 68 MC [...] / / Volume Laterality 03/19/2021 10:58 AM OFFICE SUPPORT ASSISTANT Impressions 03/19/2021 12:59 PM OFFICE SUPPORT ASSISTANT Echo performed at the patient's bedside. ??Hemoglobin [...] effusion. For the complete report, see the [employer] Documents. Narrative 03/19/2021 12:59 PM OFFICE SUPPORT ASSISTANT For the complete report, see the [employer] Documents. Final Impressions 1. Positive for atrial [...] 2020 For the complete report, see the [employer] Documents. Final Impressions 1. Positive for atrial [...] ECHO PROCEDURES (ABNORMAL) Ammonia (03/19/2021 7:39 AM OFFICE SUPPORT ASSISTANT) athologist Signature Ammonia, P 65 (H) <=51 03/19/2021 MKTO mcmol/L 8:26 AM OFFICE SUPPORT ASSISTANT Specimen Anatomical Collection Method Collection Time Receive d Time (Source) Location / / Volume Laterality Blood (Blood, 03/19/2021 7:39 AM 03/19/20 8:06 Venous) OFFICE SUPPORT ASSISTANT AM OFFICE SUPPORT ASSISTANT Darian Thomas M.D., J.D. LAB BLOOD NON ADD-ON Performing Organization Address [facility] Phon e Number [facility]- [address] [place] [address] [facility] [place] [phone] System [address] (ABNORMAL) Phosphorus Inorganic (03/19/2021 7:39 AM OFFICE SUPPORT ASSISTANT) athologist Signature Phosphorus 1.8 (L) 2.5 - 4.5 03/19/2021 MKTO (Inorganic), P mg/dL 8:32 AM OFFICE SUPPORT ASSISTANT Specimen Anatomical Collection Method Collection Time Receive d Time (Source) Location / / Volume Laterality Blood (Blood, 03/19/2021 7:39 AM 03/19/20 7:57 Venous) OFFICE SUPPORT ASSISTANT AM OFFICE SUPPORT ASSISTANT Darian Thomas M.D., J.D. LAB BLOOD ADD-ON Performing Organization Address [facility] Phon e Number [address] [address] [facility] [place] [phone] (ABNORMAL) Magnesium (03/19/2021 7:39 AM OFFICE SUPPORT ASSISTANT) athologist Signature Magnesium, P 1.5 (L) 1.7 - 2.3 03/19/2021 MKTO mg/dL 8:32 AM OFFICE SUPPORT ASSISTANT Specimen Anatomical Collection Method Collection Time Receive d Time (Source) Location / / Volume Laterality Blood (Blood, 03/19/2021 7:39 AM 03/19/20 7:57 Venous) OFFICE SUPPORT ASSISTANT AM OFFICE SUPPORT ASSISTANT Darian Thomas M.D., J.D. LAB BLOOD ADD-ON Performing Organization Address City/State/ZIP Code Phon e Number [facility]- [address] [place] [address] [place] [address] System in [place] [address] [facility] (ABNORMAL) Comprehensive Metabolic Panel (03/19/2021 7:39 AM OFFICE SUPPORT ASSISTANT) Analysis Performed At Patho logist Time Signature Potassium, P 3.1 (L) 3.6 - 5.2 03/19/2021 MKTO mmol/L 8:32 AM OFFICE SUPPORT ASSISTANT Sodium, P 140 135 - 145 03/19/2021 [place]TO mmol/L 8:32 AM OFFICE SUPPORT ASSISTANT Chloride, P 102 98 - 107 03/19/2021 [place]TO mmol/L 8:32 AM OFFICE SUPPORT ASSISTANT Bicarbonate, P 19 (L) 22 - 29 03/19/2021 [place]TO mmol/L 8:32 AM OFFICE SUPPORT ASSISTANT Anion Gap, P 19 (H) 7 - 15 03/19/2021 MKTO 8:32 AM OFFICE SUPPORT ASSISTANT BUN (Blood Urea 6 6 - 21 03/19/2021 MKTO Nitrogen), P mg/dL 8:32 AM OFFICE SUPPORT ASSISTANT Creatinine 0.33 (L) 0.59 - 03/19/2021 MKTO 1.04 mg/dL 8:32 AM OFFICE SUPPORT ASSISTANT eGFR-Black/Afri >90 >=60 03/19/2021 MKTO can Afghan mL/min/BSA 8:32 AM OFFICE SUPPORT ASSISTANT Comment: ----ADDITIONAL INFORMATION---- Estimated GFR calculated using the 2009 CKD_EPI creatinine equation. eGFR Non-Black/ >90 >=60 mL/min/BSA 03/19/2021 8:32 AM OFFICE SUPPORT ASSISTANT MKTO Comment: ----ADDITIONAL INFORMATION---- Estimated GFR calculated using the 2009 CKD_EPI creatinine equation. Calcium, Total, P 10.6 (H) 8.6 - 10.0 mg/dL 03/19/2021 8:32 AM OFFICE SUPPORT ASSISTANT MKTO Glucose, P 116 70 - 140 mg/dL 03/19/2021 8:32 AM OFFICE SUPPORT ASSISTANT M KTO Protein, Total, P 6.9 6.3 - 7.9 g/dL 03/19/2021 8:32 A M OFFICE SUPPORT ASSISTANT MKTO Albumin, P 6.7 (H) 3.5 - 5.0 g/dL 03/19/2021 9:07 AM OFFICE SUPPORT ASSISTANT M KTO Aspartate Aminotransferase 33 8 - 43 U/L 03/19/2021 8 :32 AM OFFICE SUPPORT ASSISTANT MKTO (AST), P Alkaline Phosphatase, P 43 35 - 104 U/L 03/19/2021 8: 32 AM OFFICE SUPPORT ASSISTANT MKTO Alanine Aminotransferase 10 7 - 45 U/L 03/19/2021 8:3 2 AM OFFICE SUPPORT ASSISTANT MKTO (ALT), P Bilirubin, Total, P 6.6 (H) <=1.2 mg/dL 03/19/2021 8:32 AM OFFICE SUPPORT ASSISTANT MKTO Specimen Anatomical Collection Method Collection Time Receive d Time (Source) Location / / Volume Laterality Blood (Blood, 03/19/2021 7:39 AM 03/19/20 7:57 Venous) OFFICE SUPPORT ASSISTANT AM OFFICE SUPPORT ASSISTANT Darian Thomas M.D., J.D. LAB BLOOD ADD-ON Performing Organization Address [facility] Phon e Number [address] [address] [facility] [place] [phone] System [address] (ABNORMAL) Prothrombin Time (PT) (03/19/2021 7:39 AM OFFICE SUPPORT ASSISTANT) [facility] gist Method Time Signature Prothrombin 28.4 (H) 9.4 - 12.5 03/19/2021 MKTO Time, P sec 8:10 AM OFFICE SUPPORT ASSISTANT INR 2.5 0.9 - 1.1 03/19/2021 MKTO 8:10 AM OFFICE SUPPORT ASSISTANT Comment: ----ADDITIONAL INFORMATION---- Standard intensity warfarin therapeutic range: 2.0 to 3.0 ?? High intensity warfarin therapeutic rang e: 2.5 to 3.5 Specimen Anatomical Collection Method Collection Time Receive d Time (Source) Location / / Volume Laterality Blood (Blood, 03/19/2021 7:39 AM 03/19/20 7:57 Venous) OFFICE SUPPORT ASSISTANT AM OFFICE SUPPORT ASSISTANT Darian Thomas M.D., J.D. LAB BLOOD ADD-ON Performing Organization Address [facility] Phon e Number [address] [address] [place] [address] (ABNORMAL) CBC with Differential, Blood (03/19/2021 7:39 AM OFFICE SUPPORT ASSISTANT) [facility] gist Method Time Signature Hemoglobin 6.8 (L) 11.6 - 03/19/2021 MKTO 15.0 g/dL 8:05 AM OFFICE SUPPORT ASSISTANT Hematocrit 20.4 (L) 35.5 - 03/19/2021 MKTO 44.9 % 8:05 AM OFFICE SUPPORT ASSISTANT Erythrocytes 2.25 (L) 3.92 - 03/19/2021 MKTO 5.13 8:05 AM OFFICE SUPPORT ASSISTANT x10(12)/L MCV 90.7 78.2 - 03/19/2021 MKTO 97.9 fL 8:05 AM OFFICE SUPPORT ASSISTANT RBC Distrib Width 20.7 (H) 12.2 - 03/19/2021 MKTO 16.1 % 8:05 AM OFFICE SUPPORT ASSISTANT Platelet Count 92 (L) 157 - 371 03/19/2021 MKTO x10(9)/L 8:05 AM OFFICE SUPPORT ASSISTANT Leukocytes 5.6 3.4 - 9.6 03/19/2021 MKTO x10(9)/L 8:05 AM OFFICE SUPPORT ASSISTANT Neutrophils 3.54 1.56 - 03/19/2021 MKTO 6.45 8:05 AM OFFICE SUPPORT ASSISTANT x10(9)/L Lymphocytes 1.31 0.95 - 03/19/2021 MKTO 3.07 8:05 AM OFFICE SUPPORT ASSISTANT x10(9)/L Monocytes 0.64 0.26 - 03/19/2021 MKTO 0.81 8:05 AM OFFICE SUPPORT ASSISTANT x10(9)/L Eosinophils 0.07 0.03 - 03/19/2021 MKTO 0.48 8:05 AM OFFICE SUPPORT ASSISTANT x10(9)/L Basophils <0.03 0.01 - 03/19/2021 MKTO 0.08 8:05 AM OFFICE SUPPORT ASSISTANT x10(9)/L Specimen Anatomical Collection Method Collection Time Receive d Time (Source) Location / / Volume Laterality Blood (Blood, 03/19/2021 7:39 AM 03/19/20 7:57 Venous) OFFICE SUPPORT ASSISTANT AM OFFICE SUPPORT ASSISTANT Darian Thomas M.D., J.D. LAB BLOOD ADD-ON Performing Organization Address City/State/ZIP Code Phon e Number [facility]- [address] [place] [address] [place] [address] System in [place] [address] [place] [address] (ABNORMAL) Bilirubin, Direct (03/19/2021 7:38 AM OFFICE SUPPORT ASSISTANT) P athologist Signature Bilirubin, 1.6 (H) 0.0 - 0.3 03/19/2021 MKTO Direct, P mg/dL 1:13 PM OFFICE SUPPORT ASSISTANT Specimen Anatomical Collection Method Collection Time Receive d Time (Source) Location / / Volume Laterality Blood (Blood, 03/19/2021 7:38 AM 03/19/20 21 Venous) OFFICE SUPPORT ASSISTANT 12:25 PM OFFICE SUPPORT ASSISTANT Keerthi Guzman M.D. LAB BLOOD ADD-ON Performing Organization Address City/State/ZIP Code Phon e Number [facility]- [address] [place] [phone] [place] [address] [place] [address] [address] ECG 12 Lead (03/19/2021 6:44 AM OFFICE SUPPORT ASSISTANT) athologist Signature Ventricular Rate 108 BPM MUSE ECG/Min IA Interval 156 ms MUSE QRSD Interval 82 ms MUSE QT Interval 298 ms MUSE QTC Interval 399 ms MUSE P [place] 43 degrees MUSE R [place] 41 degrees MUSE T Wave [place] -17 degrees MUSE Specimen Anatomical Collection Method Collection Time Receive d Time (Source) Location / / Volume Laterality 03/19/2021 6:44 AM 6:49 OFFICE SUPPORT ASSISTANT AM OFFICE SUPPORT ASSISTANT Impressions MUSE - 03/19/2021 6:49 AM OFFICE SUPPORT ASSISTANT Sinus tachycardia Nonspecific T wave abnormality When compared with ECG of 12-MAR-2021 13 :, QT has shortened Reviewed by STERLING Garrison Narrative This result has an attachment that is no t available. Procedure Note Elijah Roberts M.D. - 03/19/2021Formatt ing of this note might be different from the original. IMPRESSION: Sinus tachycardia Nonspecific T wave abnormality When compared with ECG of 12-MAR-2021 13 :, QT has shortened Reviewed by STERLING Garriosn Sivakumar Reyes M.D. ECG ORDERABLES Performing Organization Address City/State/ZIP Code Phon e Number MUSE MUSE NA (ABNORMAL) Hemoglobin (03/18/2021 7:00 PM OFFICE SUPPORT ASSISTANT) athologist Signature Hemoglobin 7.6 (L) 11.6 - 15.0 03/18/2021 MKTO g/dL 7:07 PM OFFICE SUPPORT ASSISTANT Specimen Anatomical Collection Method Collection Time Receive d Time (Source) Location / / Volume Laterality Blood (Blood, 03/18/2021 7:00 PM 03/18/20 21 7:03 Venous) OFFICE SUPPORT ASSISTANT PM OFFICE SUPPORT ASSISTANT Darian Thomas M.D., J.D. LAB BLOOD ADD-ON Performing Organization Address [facility] Phon e Number [facility]- [address] [place] [phone] [place] [address] [address] (ABNORMAL) Ammonia (03/18/2021 6:59 PM OFFICE SUPPORT ASSISTANT) athologist Signature Ammonia, P 55 (H) <=51 03/18/2021 MKTO mcmol/L 7:23 PM OFFICE SUPPORT ASSISTANT Specimen Anatomical Collection Method Collection Time Receive d Time (Source) Location / / Volume Laterality Blood (Blood, 03/18/2021 6:59 PM 03/18/20 21 7:03 Venous) OFFICE SUPPORT ASSISTANT PM OFFICE SUPPORT ASSISTANT Darian Thomas M.D., J.D. LAB BLOOD NON ADD-ON Performing Organization Address [facility] Phon e Number [address] [address] [place] [address] [address] (ABNORMAL) Prothrombin Time (PT) (03/18/2021 8:35 AM OFFICE SUPPORT ASSISTANT) [facility] gist Method Time Signature Prothrombin 28.8 (H) 9.4 - 12.5 03/18/2021 MKTO Time, P sec 9:20 AM OFFICE SUPPORT ASSISTANT INR 2.6 0.9 - 1.1 03/18/2021 MKTO 9:20 AM OFFICE SUPPORT ASSISTANT Comment: ----ADDITIONAL INFORMATION---- Standard intensity warfarin therapeutic range: 2.0 to 3.0 ?? High intensity warfarin therapeutic rang e: 2.5 to 3.5 Specimen Anatomical Collection Method Collection Time Receive d Time (Source) Location / / Volume Laterality Blood (Blood, 03/18/2021 8:35 AM 03/18/20 8:41 Venous) OFFICE SUPPORT ASSISTANT AM OFFICE SUPPORT ASSISTANT Darian Thomas M.D., J.D. LAB BLOOD ADD-ON Performing Organization Address City/State/ZIP Code Phon e Number [facility]- [facility] [place] [address] [place] [address] System in [place] [address] [facility] (ABNORMAL) Comprehensive Metabolic Panel (03/18/2021 8:35 AM OFFICE SUPPORT ASSISTANT) Analysis Performed At Patho logist Time Signature Potassium, P 3.1 (L) 3.6 - 5.2 03/18/2021 MKTO mmol/L 9:07 AM OFFICE SUPPORT ASSISTANT Sodium, P 141 135 - 145 03/18/2021 MKTO mmol/L 9:07 AM OFFICE SUPPORT ASSISTANT Chloride, P 106 98 - 107 03/18/2021 MKTO mmol/L 9:07 AM OFFICE SUPPORT ASSISTANT Bicarbonate, P 20 (L) 22 - 29 03/18/2021 MKTO mmol/L 9:07 AM OFFICE SUPPORT ASSISTANT Anion Gap, P 15 7 - 15 03/18/2021 MKTO 9:07 AM OFFICE SUPPORT ASSISTANT BUN (Blood Urea 7 6 - 21 03/18/2021 MKTO Nitrogen), P mg/dL 9:07 AM OFFICE SUPPORT ASSISTANT Creatinine 0.32 (L) 0.59 - 03/18/2021 MKTO 1.04 mg/dL 9:07 AM OFFICE SUPPORT ASSISTANT eGFR-Black/Afri >90 >=60 03/18/2021 MKTO can Afghan mL/min/BSA 9:07 AM OFFICE SUPPORT ASSISTANT Comment: ----ADDITIONAL INFORMATION---- Estimated GFR calculated using the 2009 CKD_EPI creatinine equation. eGFR Non-Black/ >90 >=60 mL/min/BSA 03/18/2021 9:07 AM OFFICE SUPPORT ASSISTANT MKTO Comment: ----ADDITIONAL INFORMATION---- Estimated GFR calculated using the 2009 CKD_EPI creatinine equation. Calcium, Total, P 10.2 (H) 8.6 - 10.0 mg/dL 03/18/2021 9:07 AM OFFICE SUPPORT ASSISTANT MKTO Glucose, P 109 70 - 140 mg/dL 03/18/2021 9:07 AM OFFICE SUPPORT ASSISTANT M KTO Protein, Total, P 6.3 6.3 - 7.9 g/dL 03/18/2021 9:07 A M OFFICE SUPPORT ASSISTANT MKTO Albumin, P 5.4 (H) 3.5 - 5.0 g/dL 03/18/2021 9:07 AM OFFICE SUPPORT ASSISTANT M KTO Aspartate Aminotransferase 32 8 - 43 U/L 03/18/2021 9 :07 AM OFFICE SUPPORT ASSISTANT MKTO (AST), P Alkaline Phosphatase, P 42 35 - 104 U/L 03/18/2021 9: 07 AM OFFICE SUPPORT ASSISTANT MKTO Alanine Aminotransferase 8 7 - 45 U/L 03/18/2021 9:0 7 AM OFFICE SUPPORT ASSISTANT MKTO (ALT), P Bilirubin, Total, P 7.7 (H) <=1.2 mg/dL 03/18/2021 9:07 AM OFFICE SUPPORT ASSISTANT MKTO Specimen Anatomical Collection Method Collection Time Receive d Time (Source) Location / / Volume Laterality Blood (Blood, 03/18/2021 8:35 AM 03/18/20 8:41 Venous) OFFICE SUPPORT ASSISTANT AM OFFICE SUPPORT ASSISTANT Darian Thomas M.D., J.D. LAB BLOOD ADD-ON Performing Organization Address City/State/ZIP Code Phon e Number [facility]- [address] [place] [address] [place] [address] (ABNORMAL) CBC with Differential, Blood (03/18/2021 8:35 AM OFFICE SUPPORT ASSISTANT) [facility] Method Time Signature Hemoglobin 7.1 (L) 11.6 - 03/18/2021 MKTO 15.0 g/dL 8:46 AM OFFICE SUPPORT ASSISTANT Hematocrit 21.3 (L) 35.5 - 03/18/2021 MKTO 44.9 % 8:46 AM OFFICE SUPPORT ASSISTANT Erythrocytes 2.44 (L) 3.92 - 03/18/2021 MKTO 5.13 8:46 AM OFFICE SUPPORT ASSISTANT x10(12)/L MCV 87.3 78.2 - 03/18/2021 MKTO 97.9 fL 8:46 AM OFFICE SUPPORT ASSISTANT RBC Distrib Width 19.8 (H) 12.2 - 03/18/2021 MKTO 16.1 % 8:46 AM OFFICE SUPPORT ASSISTANT Platelet Count 77 (L) 157 - 371 03/18/2021 MKTO x10(9)/L 8:46 AM OFFICE SUPPORT ASSISTANT Leukocytes 6.2 3.4 - 9.6 03/18/2021 MKTO x10(9)/L 8:46 AM OFFICE SUPPORT ASSISTANT Neutrophils 3.96 1.56 - 03/18/2021 MKTO 6.45 8:46 AM OFFICE SUPPORT ASSISTANT x10(9)/L Lymphocytes 1.35 0.95 - 03/18/2021 MKTO 3.07 8:46 AM OFFICE SUPPORT ASSISTANT x10(9)/L Monocytes 0.74 0.26 - 03/18/2021 MKTO 0.81 8:46 AM OFFICE SUPPORT ASSISTANT x10(9)/L Eosinophils 0.08 0.03 - 03/18/2021 MKTO 0.48 8:46 AM OFFICE SUPPORT ASSISTANT x10(9)/L Basophils <0.03 0.01 - 03/18/2021 MKTO 0.08 8:46 AM OFFICE SUPPORT ASSISTANT x10(9)/L Specimen Anatomical Collection Method Collection Time Receive d Time (Source) Location / / Volume Laterality Blood (Blood, 03/18/2021 8:35 AM 03/18/20 8:41 Venous) OFFICE SUPPORT ASSISTANT AM OFFICE SUPPORT ASSISTANT Darian Thomas M.D., J.D. LAB BLOOD ADD-ON Performing Organization Address City/[facility] Phon e Number [facility]- [address] [place] [phone] [facility] [place] [address] Magnesium (03/17/2021 6:35 AM OFFICE SUPPORT ASSISTANT) P athologist Signature Magnesium, P 1.7 1.7 - 2.3 03/17/2021 MKTO mg/dL 7:24 AM OFFICE SUPPORT ASSISTANT Specimen Anatomical Collection Method Collection Time Receive d Time (Source) Location / / Volume Laterality Blood (Blood, 03/17/2021 6:35 AM 03/17/20 6:43 Venous) OFFICE SUPPORT ASSISTANT AM OFFICE SUPPORT ASSISTANT Ulises Santillan LAB BLOOD ADD-ON Performing Organization Address City/[facility] Phon e Number [facility]- [address] [place] [phone] [place] [address] [address] (ABNORMAL) Basic Metabolic Panel (03/17/2021 6:35 AM OFFICE SUPPORT ASSISTANT) Analysis Performed At Patho logist Time Signature Potassium, P 3.7 3.6 - 5.2 03/17/2021 MKTO mmol/L 7:24 AM OFFICE SUPPORT ASSISTANT Sodium, P 141 135 - 145 03/17/2021 MKTO mmol/L 7:24 AM OFFICE SUPPORT ASSISTANT Chloride, P 106 98 - 107 03/17/2021 MKTO mmol/L 7:24 AM OFFICE SUPPORT ASSISTANT Bicarbonate, P 21 (L) 22 - 29 03/17/2021 MKTO mmol/L 7:24 AM OFFICE SUPPORT ASSISTANT Anion Gap, P 14 7 - 15 03/17/2021 MKTO 7:24 AM OFFICE SUPPORT ASSISTANT BUN (Blood Urea 5 (L) 6 - 21 03/17/2021 MKTO Nitrogen), P mg/dL 7:24 AM OFFICE SUPPORT ASSISTANT Creatinine 0.35 (L) 0.59 - 03/17/2021 MKTO 1.04 mg/dL 7:24 AM OFFICE SUPPORT ASSISTANT eGFR-Black/Afri >90 >=60 03/17/2021 MKTO can Afghan mL/min/BSA 7:24 AM OFFICE SUPPORT ASSISTANT Comment: ----ADDITIONAL INFORMATION---- Estimated GFR calculated using the 2009 CKD_EPI creatinine equation. eGFR Non-Black/ >90 >=60 mL/min/BSA 03/17/2021 7:24 AM OFFICE SUPPORT ASSISTANT MKTO Comment: ----ADDITIONAL INFORMATION---- Estimated GFR calculated using the 2009 CKD_EPI creatinine equation. Calcium, Total, P 9.7 8.6 - 10.0 mg/dL 03/17/2021 7:24 AM OFFICE SUPPORT ASSISTANT MKTO Glucose, P 116 70 - 140 mg/dL 03/17/2021 7:24 AM OFFICE SUPPORT ASSISTANT M KTO Specimen Anatomical Collection Method Collection Time Receive d Time (Source) Location / / Volume Laterality Blood (Blood, 03/17/2021 6:35 AM 03/17/20 6:43 Venous) OFFICE SUPPORT ASSISTANT AM OFFICE SUPPORT ASSISTANT Harish Ansari P.A.-C., M.S. LAB BLOOD ADD-ON Performing Organization Address City/State/ZIP Code Phon e Number [facility]- [address] [place] [phone] [place] [address] (ABNORMAL) CBC with Differential, Blood (03/17/2021 6:35 AM OFFICE SUPPORT ASSISTANT) [facility] gist Method Time Signature Hemoglobin 7.7 (L) 11.6 - 03/17/2021 MKTO 15.0 g/dL 6:58 AM OFFICE SUPPORT ASSISTANT Hematocrit 22.3 (L) 35.5 - 03/17/2021 MKTO 44.9 % 6:58 AM OFFICE SUPPORT ASSISTANT Erythrocytes 2.56 (L) 3.92 - 03/17/2021 MKTO 5.13 6:58 AM OFFICE SUPPORT ASSISTANT x10(12)/L MCV 87.1 78.2 - 03/17/2021 MKTO 97.9 fL 6:58 AM OFFICE SUPPORT ASSISTANT RBC Distrib Width 19.3 (H) 12.2 - 03/17/2021 MKTO 16.1 % 6:58 AM OFFICE SUPPORT ASSISTANT Platelet Count 68 (L) 157 - 371 03/17/2021 MKTO x10(9)/L 6:58 AM OFFICE SUPPORT ASSISTANT Leukocytes 6.1 3.4 - 9.6 03/17/2021 MKTO x10(9)/L 6:58 AM OFFICE SUPPORT ASSISTANT Neutrophils 3.82 1.56 - 03/17/2021 MKTO 6.45 6:58 AM OFFICE SUPPORT ASSISTANT x10(9)/L Lymphocytes 1.39 0.95 - 03/17/2021 MKTO 3.07 6:58 AM OFFICE SUPPORT ASSISTANT x10(9)/L Monocytes 0.77 0.26 - 03/17/2021 MKTO 0.81 6:58 AM OFFICE SUPPORT ASSISTANT x10(9)/L Eosinophils 0.05 0.03 - 03/17/2021 MKTO 0.48 6:58 AM OFFICE SUPPORT ASSISTANT x10(9)/L Basophils <0.03 0.01 - 03/17/2021 MKTO 0.08 6:58 AM OFFICE SUPPORT ASSISTANT x10(9)/L Specimen Anatomical Collection Method Collection Time Receive d Time (Source) Location / / Volume Laterality Blood (Blood, 03/17/2021 6:35 AM 03/17/20 6:42 Venous) OFFICE SUPPORT ASSISTANT AM OFFICE SUPPORT ASSISTANT Harish Ansari P.A.-C., M.S. LAB BLOOD ADD-ON Performing Organization Address City/State/ZIP Code Phon e Number [facility]- [address] [place] [address] [place] [address] [address] (ABNORMAL) Hematocrit (03/16/2021 4:14 PM OFFICE SUPPORT ASSISTANT) P athologist Signature Hematocrit 23.7 (L) 35.5 - 44.9 03/16/2021 MKTO % 4:25 PM OFFICE SUPPORT ASSISTANT Specimen Anatomical Collection Method Collection Time Receive d Time (Source) Location / / Volume Laterality Blood (Blood, 03/16/2021 4:14 PM 03/16/20 4:23 Venous) OFFICE SUPPORT ASSISTANT PM OFFICE SUPPORT ASSISTANT Lizet Navarro M.D. LAB BLOOD ADD-ON Performing Organization Address City/State/ZIP Code Phon e Number [address] [address] [place] [address] System in [address] (ABNORMAL) Hemoglobin (03/16/2021 4:14 PM OFFICE SUPPORT ASSISTANT) P athologist Signature Hemoglobin 8.2 (L) 11.6 - 15.0 03/16/2021 MKTO g/dL 4:25 PM OFFICE SUPPORT ASSISTANT Specimen Anatomical Collection Method Collection Time Receive d Time (Source) Location / / Volume Laterality Blood (Blood, 03/16/2021 4:14 PM 03/16/20 4:23 Venous) OFFICE SUPPORT ASSISTANT PM OFFICE SUPPORT ASSISTANT Lizet Navarro M.D. LAB BLOOD ADD-ON Performing Organization Address City/State/ZIP Code Phon e Number [address] [address] [place] [address] System [address] (ABNORMAL) Hematocrit (03/16/2021 12:58 PM OFFICE SUPPORT ASSISTANT) P athologist Signature Hematocrit 24.8 (L) 35.5 - 44.9 03/16/2021 MKTO % 1:27 PM OFFICE SUPPORT ASSISTANT Specimen Anatomical Collection Method Collection Time Receive d Time (Source) Location / / Volume Laterality Blood (Blood, 03/16/2021 12:58 03/16/2021 1:04 Venous) PM OFFICE SUPPORT ASSISTANT PM OFFICE SUPPORT ASSISTANT Lizet Navarro M.D. LAB BLOOD ADD-ON Performing Organization Address City/State/ZIP Code Phon e Number [facility] [address] [place] [phone] [place] [address] System [address] (ABNORMAL) Hemoglobin (03/16/2021 12:58 PM OFFICE SUPPORT ASSISTANT) P athologist Signature Hemoglobin 8.3 (L) 11.6 - 15.0 03/16/2021 MKTO g/dL 1:27 PM OFFICE SUPPORT ASSISTANT Specimen Anatomical Collection Method Collection Time Receive d Time (Source) Location / / Volume Laterality Blood (Blood, 03/16/2021 12:58 03/16/2021 1:04 Venous) PM OFFICE SUPPORT ASSISTANT PM OFFICE SUPPORT ASSISTANT Lizet Navarro M.D. LAB BLOOD ADD-ON Performing Organization Address City/State/ZIP Code Phon e Number [facility]- [address] [place] [phone] [place] [address] [address] Transfuse Red Blood Cells : (03/16/2021 11:58 AM OFFICE SUPPORT ASSISTANT) Lizet Navarro M.D. BLOOD TRANSFUSION ORDERABLES Transfuse Red Blood Cells : , 2 Units (03/16/2021 11:58 AM OFFICE SUPPORT ASSISTANT) Lizet Navarro M.D. BLOOD TRANSFUSION ORDERABLES Transfuse Red Blood Cells : (03/16/2021 11:08 AM OFFICE SUPPORT ASSISTANT) Lizet Navarro M.D. BLOOD TRANSFUSION ORDERABLES Transfuse Fresh Frozen Plasma :Bleeding with altered coagulation; 180 mL/hr (03/16/2021 10:21 AM OFFICE SUPPORT ASSISTANT) Lizet Navarro M.D. BLOOD TRANSFUSION ORDERABLES Transfuse Fresh Frozen Plasma :Bleeding with altered coagulation; 180 mL/hr, 2 Units (03/16/2021 10:21 AM OFFICE SUPPORT ASSISTANT) Lizet Navarro M.D. BLOOD TRANSFUSION ORDERABLES Transfuse Fresh Frozen Plasma :Bleeding with altered coagulation; 180 mL/hr (03/16/2021 10:20 AM OFFICE SUPPORT ASSISTANT) Lizet Navarro M.D. BLOOD TRANSFUSION ORDERABLES Transfuse Red Blood Cells : (03/16/2021 9:06 AM OFFICE SUPPORT ASSISTANT) Nola Huitron APRN, C.N.P., M.S.N. BLOOD TRANSFUSI ON ORDERABLES Transfuse Red Blood Cells : , 1 Units (03/16/2021 9:06 AM OFFICE SUPPORT ASSISTANT) Nola Huitron APRN, C.N.P., M.S.N. BLOOD TRANSFUSI ON ORDERABLES (ABNORMAL) Fibrinogen (03/16/2021 7:32 AM OFFICE SUPPORT ASSISTANT) P athologist Signature Fibrinogen, P 135 (L) 200 - 393 03/16/2021 MKTO mg/dL 7:56 AM OFFICE SUPPORT ASSISTANT Specimen Anatomical Collection Method Collection Time Receive d Time (Source) Location / / Volume Laterality Blood (Blood, 03/16/2021 7:32 AM 03/16/20 7:40 Venous) OFFICE SUPPORT ASSISTANT AM OFFICE SUPPORT ASSISTANT Tariq CheryB.S. LAB BLOOD ADD-ON Performing Organization Address City/[facility]/ZIP Code Phon e Number [address] [place] [address] (ABNORMAL) APTT (Activated Partial Thromboplastin Time) (03/16/2021 7:32 AM OFFICE SUPPORT ASSISTANT) P athologist Signature Activated 54 (H) 25 - 37 03/16/2021 MKTO Partial sec 7:53 AM OFFICE SUPPORT ASSISTANT Thrombopl Time, P Specimen Anatomical Collection Method Collection Time Receive d Time (Source) Location / / Volume Laterality Blood (Blood, 03/16/2021 7:32 AM 03/16/20 7:40 Venous) OFFICE SUPPORT ASSISTANT AM OFFICE SUPPORT ASSISTANT Tariq CheryB.S. LAB BLOOD ADD-ON Performing Organization Address City/[facility] Phon e Number [address] [place] [address] (ABNORMAL) Prothrombin Time (PT) (03/16/2021 7:32 AM OFFICE SUPPORT ASSISTANT) Patholo gist Method Time Signature Prothrombin 23.4 (H) 9.4 - 12.5 03/16/2021 MKTO Time, P sec 7:51 AM OFFICE SUPPORT ASSISTANT INR 2.1 0.9 - 1.1 03/16/2021 MKTO 7:51 AM OFFICE SUPPORT ASSISTANT Comment: ----ADDITIONAL INFORMATION---- Standard intensity warfarin therapeutic range: 2.0 to 3.0 ?? High intensity warfarin therapeutic rang e: 2.5 to 3.5 Specimen Anatomical Collection Method Collection Time Receive d Time (Source) Location / / Volume Laterality Blood (Blood, 03/16/2021 7:32 AM 03/16/20 7:40 Venous) OFFICE SUPPORT ASSISTANT AM OFFICE SUPPORT ASSISTANT Tariq DanielS. LAB BLOOD ADD-ON Performing Organization Address City/[facility]/ZIP Code Phon e Number [facility]- [address] [place] [phone] [place] [address] (ABNORMAL) Hemoglobin (03/16/2021 7:31 AM OFFICE SUPPORT ASSISTANT) P athologist Signature Hemoglobin 5.3 (CL) 11.6 - 15.0 03/16/2021 MKTO g/dL 7:57 AM OFFICE SUPPORT ASSISTANT Specimen Anatomical Collection Method Collection Time Receive d Time (Source) Location / / Volume Laterality Blood (Blood, 03/16/2021 7:31 AM 03/16/20 7:40 Venous) OFFICE SUPPORT ASSISTANT AM OFFICE SUPPORT ASSISTANT Tariq Santoyo.S. LAB BLOOD ADD-ON Performing Organization Address City/[facility]/ZIP Code Phon e Number [facility]- [address] [place] [phone] [place] [address] [address] Testing Location (03/16/2021 5:44 AM OFFICE SUPPORT ASSISTANT) P athologist Signature Testing [facility] DEFAULT 03/16/2021 MKTO Location 5:50 AM OFFICE SUPPORT ASSISTANT Specimen Anatomical Collection Method Collection Time Receive d Time (Source) Location / / Volume Laterality Blood 03/16/2021 5:44 AM 5:49 OFFICE SUPPORT ASSISTANT AM OFFICE SUPPORT ASSISTANT Tariq Santoyo.S. LAB BLOOD BANK TEST ORDERABL ES Performing Organization Address City/State/ZIP Code Phon e Number [facility]- [address] [place] [phone] [place] [address] Type and Screen (with reflex Antibody ID) (03/16/2021 5:44 AM OFFICE SUPPORT ASSISTANT) Patholo gist Method Time Signature ABO Group B 03/16/2021 MKTO 6:49 AM OFFICE SUPPORT ASSISTANT Rh Type POS 03/16/2021 MKTO 6:49 AM OFFICE SUPPORT ASSISTANT Antibody Screen NEG 03/16/2021 MKTO 6:49 AM OFFICE SUPPORT ASSISTANT Type & Screen 03/19/2021 03/16/2021 MKTO Expiration 23:59 6:49 AM OFFICE SUPPORT ASSISTANT ELXM Eligible Y 03/16/2021 MKTO 6:49 AM OFFICE SUPPORT ASSISTANT Specimen Anatomical Collection Method Collection Time Receive d Time (Source) Location / / Volume Laterality Blood (Blood, 03/16/2021 5:44 AM 03/16/20 5:49 Venous) OFFICE SUPPORT ASSISTANT AM OFFICE SUPPORT ASSISTANT Tariq Santillan LAB BLOOD BANK TEST ORDERABL ES Performing Organization Address [facility] Phon e Number [facility]- [address] [place] [phone] [place] [address] [address] Glucose, POCT (03/16/2021 5:43 AM OFFICE SUPPORT ASSISTANT) P athologist Signature Glucose, POCT, 121 70 - 140 03/16/2021 MKTO B mg/dL 5:43 AM OFFICE SUPPORT ASSISTANT Specimen Anatomical Collection Method Collection Time Receive d Time (Source) Location / / Volume Laterality Blood 03/16/2021 5:43 AM 5:57 OFFICE SUPPORT ASSISTANT AM OFFICE SUPPORT ASSISTANT Generic [facility] POCT ORDERABLES-MANUAL Performing Organization Address City/[facility]/ZIP [facility] Phon e Number [facility]- [address] [place] [phone] [place] [address] [address] Transfuse Fresh Frozen Plasma :Bleeding with altered coagulation; 180 mL/hr (03/16/2021 5:00 AM OFFICE SUPPORT ASSISTANT) Lizet Navarro M.D. BLOOD TRANSFUSION ORDERABLES Transfuse Fresh Frozen Plasma :Bleeding with altered coagulation; 180 mL/hr, 2 Units (03/16/2021 5:00 AM OFFICE SUPPORT ASSISTANT) Lizet Navarro M.D. BLOOD TRANSFUSION ORDERABLES (ABNORMAL) Calcium, Ionized (03/16/2021 4:57 AM OFFICE SUPPORT ASSISTANT) P athologist Signature Calcium, 4.49 (L) 4.65 - 03/16/2021 MKTO Ionized, B 5.30 mg/dL 5:19 AM OFFICE SUPPORT ASSISTANT Specimen Anatomical Collection Method Collection Time Receive d Time (Source) Location / / Volume Laterality Blood 03/16/2021 4:57 AM 5:05 OFFICE SUPPORT ASSISTANT AM OFFICE SUPPORT ASSISTANT Katrin Thomas APRN.NLala., M.S.N. LAB BLOOD NON A DD-ON Performing Organization Address [facility] Phon e Number [address] [place] [address] (ABNORMAL) pH (03/16/2021 4:57 AM OFFICE SUPPORT ASSISTANT) athologist Signature pH 7.49 (H) 7.35 - 7.45 03/16/2021 MKTO pH 5:19 AM OFFICE SUPPORT ASSISTANT Specimen Anatomical Collection Method Collection Time Receive d Time (Source) Location / / Volume Laterality Blood 03/16/2021 4:57 AM 5:05 OFFICE SUPPORT ASSISTANT AM OFFICE SUPPORT ASSISTANT Katrin Thomas APRN.N.P., M.S.N. LAB HISTORICAL ORDERS Performing Organization Address City/[facility] Phon e Number [address] [address] [place] [address] (ABNORMAL) CBC without Differential (03/16/2021 4:21 AM OFFICE SUPPORT ASSISTANT) [facility] gist Method Time Signature Hemoglobin 6.2 (L) 11.6 - 03/16/2021 MKTO 15.0 g/dL 4:54 AM OFFICE SUPPORT ASSISTANT Hematocrit 18.3 (L) 35.5 - 03/16/2021 MKTO 44.9 % 4:54 AM OFFICE SUPPORT ASSISTANT Erythrocytes 1.95 (L) 3.92 - 03/16/2021 MKTO 5.13 4:54 AM OFFICE SUPPORT ASSISTANT x10(12)/L MCV 93.8 78.2 - 03/16/2021 MKTO 97.9 fL 4:54 AM OFFICE SUPPORT ASSISTANT RBC Distrib Width 20.1 (H) 12.2 - 03/16/2021 MKTO 16.1 % 4:54 AM OFFICE SUPPORT ASSISTANT Platelet Count 80 (L) 157 - 371 03/16/2021 MKTO x10(9)/L 4:54 AM OFFICE SUPPORT ASSISTANT Leukocytes 6.3 3.4 - 9.6 03/16/2021 MKTO x10(9)/L 4:54 AM OFFICE SUPPORT ASSISTANT Specimen Anatomical Collection Method Collection Time Receive d Time (Source) Location / / Volume Laterality Blood (Blood, 03/16/2021 4:21 AM 03/16/20 4:30 Venous) OFFICE SUPPORT ASSISTANT AM OFFICE SUPPORT ASSISTANT Nola Huitron APRN, C.N.P., M.S.N. LAB BLOOD ADD-O N Performing Organization Address City/State/ZIP Code Phon e Number [facility]- [address] [place] [phone] [place] [address] [place] [address] [address] (ABNORMAL) Comprehensive Metabolic Panel (03/16/2021 4:21 AM OFFICE SUPPORT ASSISTANT) Analysis Performed At Patho logist Time Signature Potassium, P 3.6 3.6 - 5.2 03/16/2021 MKTO mmol/L 4:53 AM OFFICE SUPPORT ASSISTANT Sodium, P 140 135 - 145 03/16/2021 MKTO mmol/L 4:53 AM OFFICE SUPPORT ASSISTANT Chloride, P 109 (H) 98 - 107 03/16/2021 MKTO mmol/L 4:53 AM OFFICE SUPPORT ASSISTANT Bicarbonate, P 20 (L) 22 - 29 03/16/2021 MKTO mmol/L 4:53 AM OFFICE SUPPORT ASSISTANT Anion Gap, P 11 7 - 15 03/16/2021 MKTO 4:53 AM OFFICE SUPPORT ASSISTANT BUN (Blood Urea 5 (L) 6 - 21 03/16/2021 MKTO Nitrogen), P mg/dL 4:53 AM OFFICE SUPPORT ASSISTANT Creatinine 0.40 (L) 0.59 - 03/16/2021 MKTO 1.04 mg/dL 4:53 AM OFFICE SUPPORT ASSISTANT eGFR-Black/Afri >90 >=60 03/16/2021 MKTO can Afghan mL/min/BSA 5:29 AM OFFICE SUPPORT ASSISTANT Comment: ----ADDITIONAL INFORMATION---- Estimated GFR calculated using the 2009 CKD_EPI creatinine equation. eGFR Non-Black/ >90 >=60 mL/min/BSA 03/16/2021 5:29 AM OFFICE SUPPORT ASSISTANT MKTO Comment: ----ADDITIONAL INFORMATION---- Estimated GFR calculated using the 2009 CKD_EPI creatinine equation. Calcium, Total, P 8.9 8.6 - 10.0 mg/dL 03/16/2021 4:53 AM OFFICE SUPPORT ASSISTANT MKTO Glucose, P 135 70 - 140 mg/dL 03/16/2021 4:53 AM OFFICE SUPPORT ASSISTANT M KTO Protein, Total, P 5.2 (L) 6.3 - 7.9 g/dL 03/16/2021 4:53 A M OFFICE SUPPORT ASSISTANT MKTO Albumin, P 4.0 3.5 - 5.0 g/dL 03/16/2021 4:53 AM OFFICE SUPPORT ASSISTANT M KTO Aspartate Aminotransferase 33 8 - 43 U/L 03/16/2021 4 :53 AM OFFICE SUPPORT ASSISTANT MKTO (AST), P Alkaline Phosphatase, P 43 35 - 104 U/L 03/16/2021 4: 53 AM OFFICE SUPPORT ASSISTANT MKTO Alanine Aminotransferase 8 7 - 45 U/L 03/16/2021 4:5 3 AM OFFICE SUPPORT ASSISTANT MKTO (ALT), P Bilirubin, Total, P 5.1 (H) <=1.2 mg/dL 03/16/2021 4:53 AM OFFICE SUPPORT ASSISTANT MKTO Specimen Anatomical Collection Method Collection Time Receive d Time (Source) Location / / Volume Laterality Blood (Blood, 03/16/2021 4:21 AM 03/16/20 4:53 Venous) OFFICE SUPPORT ASSISTANT AM OFFICE SUPPORT ASSISTANT Nola Huitron APRN C.N.P., M.S.N. LAB BLOOD ADD-O N Performing Organization Address City/State/ZIP Code Phon e Number [facility]- [address] [place] [phone] [place] [address] (ABNORMAL) Phosphorus Inorganic (03/16/2021 4:21 AM OFFICE SUPPORT ASSISTANT) P athologist Signature Phosphorus 2.0 (L) 2.5 - 4.5 03/16/2021 MKTO (Inorganic), P mg/dL 4:53 AM OFFICE SUPPORT ASSISTANT Specimen Anatomical Collection Method Collection Time Receive d Time (Source) Location / / Volume Laterality Blood (Blood, 03/16/2021 4:21 AM 03/16/20 4:53 Venous) OFFICE SUPPORT ASSISTANT AM OFFICE SUPPORT ASSISTANT Nola Huitron APRN, C.N.P., M.S.N. LAB BLOOD ADD-O N Performing Organization Address City/[facility] Phon e Number [facility]- [address] [place] [phone] [place] [address] Magnesium (03/16/2021 4:21 AM OFFICE SUPPORT ASSISTANT) P athologist Signature Magnesium, P 1.7 1.7 - 2.3 03/16/2021 MKTO mg/dL 4:53 AM OFFICE SUPPORT ASSISTANT Specimen Anatomical Collection Method Collection Time Receive d Time (Source) Location / / Volume Laterality Blood (Blood, 03/16/2021 4:21 AM 03/16/20 4:53 Venous) OFFICE SUPPORT ASSISTANT AM OFFICE SUPPORT ASSISTANT Nola Huitron APRN, C.N.P., M.S.N. LAB BLOOD ADD-O N Performing Organization Address City/[facility] Phon e Number [facility]- [address] [place] [phone] [place] [address] Transfuse Pooled Cryoprecipitate:Bleeding with Fibrinogen deficiency; 180 mL/hr (03/16/2021 3:48 AM OFFICE SUPPORT ASSISTANT) Nola Huitron APRN, C.N.P., M.S.N. BLOOD TRANSFUSI ON ORDERABLES Transfuse Pooled Cryoprecipitate:Bleeding with Fibrinogen deficiency; 180 mL/hr (03/16/2021 3:48 AM OFFICE SUPPORT ASSISTANT) Nola J Elana CRANE OPERATOR, C.N.P., M.S.N. BLOOD TRANSFUSI ON ORDERABLES Transfuse Pooled Cryoprecipitate:Bleeding with Fibrinogen deficiency; 180 mL/hr (03/16/2021 3:17 AM OFFICE SUPPORT ASSISTANT) Nolabrandee Huitron APRN, C.N.P., M.S.N. BLOOD TRANSFUSI ON ORDERABLES CT Abdomen Pelvis with IV Contrast (03/16/2021 2:36 AM OFFICE SUPPORT ASSISTANT) Anatomical Region Laterality Modality Abdomen, Pelvis, Abdominal RST LOS, Abdominal ARZ LOS, N/A Computed Tomography Abdominal FLA LOS Specimen (Source) Anatomical Collection Method Collection Time Re ceived Time Location / / Volume Laterality 03/16/2021 7:41 AM OFFICE SUPPORT ASSISTANT Impressions 03/16/2021 7:49 AM OFFICE SUPPORT ASSISTANT 1. Newly identified CHF, with associated compressive atelectasis at each lung base. 2. Stable abdominal ascites with no iden tified area of hemorrhage. 3. Newly identified anasarca. 4. Heterogeneous appearance of the liver with splenomegaly, the combination of findings suggestive of hepatic inflammat ion. Clinical correlation is recommended. Narrative 03/16/2021 7:49 AM OFFICE SUPPORT ASSISTANT EXAM: CT ABDOMEN PELVIS WITH IV CONTRAST [...] inflammat ion. Clinical correlation is recommended. Tariq Santillan IMG CT PROCEDURES Test, POCT, Urine (lab) (03/16/2021 2:11 AM OFFICE SUPPORT ASSISTANT) P athologist Signature Negative 03/16/2021 MKTO Test, POCT, U 2:19 AM OFFICE SUPPORT ASSISTANT Specimen Anatomical Collection Method Collection Time Receive d Time (Source) Location / / Volume Laterality Urine (Urine, 03/16/2021 2:11 AM 03/16/20 2:11 Clean Catch) OFFICE SUPPORT ASSISTANT AM OFFICE SUPPORT ASSISTANT Tariq DanielSSuma LAB POCT ORDERABLES - DEVICE Performing Organization Address [facility] Phon e Number [facility]- [address] [place] [phone] [place] [address] (ABNORMAL) Fibrinogen (03/16/2021 1:11 AM OFFICE SUPPORT ASSISTANT) P athologist Signature Fibrinogen, P 57 (CL) 200 - 393 03/16/2021 MKTO mg/dL 1:46 AM OFFICE SUPPORT ASSISTANT Specimen Anatomical Collection Method Collection Time Receive d Time (Source) Location / / Volume Laterality Blood (Blood, 03/16/2021 1:11 AM 03/16/20 1:15 Venous) OFFICE SUPPORT ASSISTANT AM OFFICE SUPPORT ASSISTANT Tariq CheryB.S. LAB BLOOD ADD-ON Performing Organization Address City/[facility] Phon e Number [facility]- [address] [place] [phone] [place] [address] (ABNORMAL) APTT (Activated Partial Thromboplastin Time) (03/16/2021 1:11 AM OFFICE SUPPORT ASSISTANT) P athologist Signature Activated 61 (H) 25 - 37 03/16/2021 MKTO Partial sec 1:29 AM OFFICE SUPPORT ASSISTANT Thrombopl Time, P Specimen Anatomical Collection Method Collection Time Receive d Time (Source) Location / / Volume Laterality Blood (Blood, 03/16/2021 1:11 AM 03/16/20 1:15 Venous) OFFICE SUPPORT ASSISTANT AM OFFICE SUPPORT ASSISTANT Tariq CheryBSumaS. LAB BLOOD ADD-ON Performing Organization Address City/[facility] Phon e Number [address] [address] [place] [address] (ABNORMAL) Prothrombin Time (PT) (03/16/2021 1:11 AM OFFICE SUPPORT ASSISTANT) Patholo gist Method Time Signature Prothrombin 26.9 (H) 9.4 - 12.5 03/16/2021 MKTO Time, P sec 1:45 AM OFFICE SUPPORT ASSISTANT INR 2.4 0.9 - 1.1 03/16/2021 MKTO 1:45 AM OFFICE SUPPORT ASSISTANT Comment: ----ADDITIONAL INFORMATION---- Standard intensity warfarin therapeutic range: 2.0 to 3.0 ?? High intensity warfarin therapeutic rang e: 2.5 to 3.5 Specimen Anatomical Collection Method Collection Time Receive d Time (Source) Location / / Volume Laterality Blood (Blood, 03/16/2021 1:11 AM 03/16/20 1:15 Venous) OFFICE SUPPORT ASSISTANT AM OFFICE SUPPORT ASSISTANT Tariq CheryB.S. LAB BLOOD ADD-ON Performing Organization Address City/[facility] Phon e Number [address] [phone] [place] [address] [address] Potassium (03/16/2021 12:08 AM OFFICE SUPPORT ASSISTANT) P athologist Signature Potassium, P 3.9 3.6 - 5.2 03/16/2021 MKTO mmol/L 12:33 AM OFFICE SUPPORT ASSISTANT Specimen Anatomical Collection Method Collection Time Receive d Time (Source) Location / / Volume Laterality Blood (Blood, 03/16/2021 12:08 03/16/2021 Venous) AM OFFICE SUPPORT ASSISTANT 12:33 AM OFFICE SUPPORT ASSISTANT Tariq CheryB.S. LAB BLOOD ADD-ON Performing Organization Address City/[facility] Phon e Number [address] [address] [place] [address] [address] (ABNORMAL) Hemoglobin (03/16/2021 12:08 AM OFFICE SUPPORT ASSISTANT) P athologist Signature Hemoglobin 7.3 (L) 11.6 - 15.0 03/16/2021 MKTO g/dL 12:26 AM OFFICE SUPPORT ASSISTANT Specimen Anatomical Collection Method Collection Time Receive d Time (Source) Location / / Volume Laterality Blood (Blood, 03/16/2021 12:08 03/16/2021 Venous) AM OFFICE SUPPORT ASSISTANT 12:26 AM OFFICE SUPPORT ASSISTANT Nola Huitron APRN, C.N.P., M.S.N. LAB BLOOD ADD-O N Performing Organization Address City/[facility] Phon e Number [facility]- [address] [place] [phone] [place] [address] [place] [address] [address] (ABNORMAL) Glucose, POCT (03/15/2021 11:33 PM OFFICE SUPPORT ASSISTANT) athologist Signature Glucose, POCT, 160 (H) 70 - 140 03/15/2021 MKTO B mg/dL 11:33 PM OFFICE SUPPORT ASSISTANT Specimen Anatomical Collection Method Collection Time Receive d Time (Source) Location / / Volume Laterality Blood 03/15/2021 11:33 03/16/2021 PM OFFICE SUPPORT ASSISTANT 12:15 AM OFFICE SUPPORT ASSISTANT Generic [facility] POCT ORDERABLES-MANUAL Performing Organization Address City/[facility] Phon e Number [facility]- [address] [place] [address] [place] [address] Transfuse Red Blood Cells : (03/15/2021 11:07 PM OFFICE SUPPORT ASSISTANT) Nola Huitron APRN, C.N.P., M.S.N. BLOOD TRANSFUSI ON ORDERABLES Transfuse Red Blood Cells : , 1 Units (03/15/2021 11:07 PM OFFICE SUPPORT ASSISTANT) Nola Huitron APRN, C.N.P., M.S.N. BLOOD TRANSFUSI ON ORDERABLES (ABNORMAL) Hemoglobin (03/15/2021 8:11 PM OFFICE SUPPORT ASSISTANT) P athologist Signature Hemoglobin 6.6 (L) 11.6 - 15.0 03/15/2021 MKTO g/dL 8:27 PM OFFICE SUPPORT ASSISTANT Specimen Anatomical Collection Method Collection Time Receive d Time (Source) Location / / Volume Laterality Blood (Blood, 03/15/2021 8:11 PM 03/15/20 8:23 Venous) OFFICE SUPPORT ASSISTANT PM OFFICE SUPPORT ASSISTANT Nola Huitron APRN, C.N.P., M.S.N. LAB BLOOD ADD-O N Performing Organization Address City/[facility]/ZIP [facility] Phon e Number [facility]- [address] [place] [phone] [place] [address] [address] Transfuse Fresh Frozen Plasma :Bleeding with altered coagulation; 180 mL/hr (03/15/2021 6:20 PM OFFICE SUPPORT ASSISTANT) Jailene Barnhart RDN, TALI BLOOD TRANSFUSION ORDERABLES (ABNORMAL) Hemoglobin (03/15/2021 4:52 PM OFFICE SUPPORT ASSISTANT) P athologist Signature Hemoglobin 7.6 (L) 11.6 - 15.0 03/15/2021 MKTO g/dL 4:57 PM OFFICE SUPPORT ASSISTANT Specimen Anatomical Collection Method Collection Time Receive d Time (Source) Location / / Volume Laterality Blood (Blood, 03/15/2021 4:52 PM 03/15/20 4:55 Venous) OFFICE SUPPORT ASSISTANT PM OFFICE SUPPORT ASSISTANT Lizet Navarro M.D. LAB BLOOD ADD-ON Performing Organization Address City/[facility]/ZIP Code Phon e Number [facility]- [address] [place] [phone] [place] [address] (ABNORMAL) Hematocrit (03/15/2021 4:52 PM OFFICE SUPPORT ASSISTANT) P athologist Signature Hematocrit 22.4 (L) 35.5 - 44.9 03/15/2021 MKTO % 4:57 PM OFFICE SUPPORT ASSISTANT Specimen Anatomical Collection Method Collection Time Receive d Time (Source) Location / / Volume Laterality Blood (Blood, 03/15/2021 4:52 PM 03/15/20 4:55 Venous) OFFICE SUPPORT ASSISTANT PM OFFICE SUPPORT ASSISTANT Lizet Navarro M.D. LAB BLOOD ADD-ON Performing Organization Address City/[facility]/ZIP Code Phon e Number [facility]- [address] [place] [phone] [place] [address] [address] Transfuse Fresh Frozen Plasma :Bleeding with altered coagulation; 180 mL/hr (03/15/2021 3:34 PM OFFICE SUPPORT ASSISTANT) Lizet Navarro M.D. BLOOD TRANSFUSION ORDERABLES (ABNORMAL) Phosphorus Inorganic (03/15/2021 2:29 PM OFFICE SUPPORT ASSISTANT) athologist Signature Phosphorus 2.3 (L) 2.5 - 4.5 03/15/2021 MKTO (Inorganic), P mg/dL 5:27 PM OFFICE SUPPORT ASSISTANT Specimen Anatomical Collection Method Collection Time Receive d Time (Source) Location / / Volume Laterality Blood (Blood, 03/15/2021 2:29 PM 03/15/20 5:12 Venous) OFFICE SUPPORT ASSISTANT PM OFFICE SUPPORT ASSISTANT Lizet Navarro M.D. LAB BLOOD ADD-ON Performing Organization Address [facility]ZIP [facility] Number [facility]- [address] [place] [phone] [place] [address] Magnesium (03/15/2021 2:29 PM OFFICE SUPPORT ASSISTANT) athologist Signature Magnesium, P 1.8 1.7 - 2.3 03/15/2021 [facility] mg/dL 5:27 PM OFFICE SUPPORT ASSISTANT Specimen Anatomical Collection Method Collection Time Receive d Time (Source) Location / / Volume Laterality Blood (Blood, 03/15/2021 2:29 PM 03/15/20 5:12 Venous) OFFICE SUPPORT ASSISTANT PM OFFICE SUPPORT ASSISTANT Lizet Navarro M.D. LAB BLOOD ADD-ON Performing Organization Address City/[facility] Hospital/[facility] Code Phon e Number [facility]- [address] [place] [phone] [place] [address] (ABNORMAL) Hemoglobin (03/15/2021 2:29 PM OFFICE SUPPORT ASSISTANT) P athologist Signature Hemoglobin 7.9 (L) 11.6 - 15.0 03/15/2021 [facility] g/dL 2:50 PM OFFICE SUPPORT ASSISTANT Specimen Anatomical Collection Method Collection Time Receive d Time (Source) Location / / Volume Laterality Blood (Blood, 03/15/2021 2:29 PM 03/15/20 2:43 Venous) OFFICE SUPPORT ASSISTANT PM OFFICE SUPPORT ASSISTANT Lizet Navarro M.D. LAB BLOOD ADD-ON Performing Organization Address City/State/[facility] Phon e Number [facility]- [address] [place] [phone] [place] [address] (ABNORMAL) Hematocrit (03/15/2021 2:29 PM OFFICE SUPPORT ASSISTANT) P athologist Signature Hematocrit 23.3 (L) 35.5 - 44.9 03/15/2021 MKTO % 2:50 PM OFFICE SUPPORT ASSISTANT Specimen Anatomical Collection Method Collection Time Receive d Time (Source) Location / / Volume Laterality Blood (Blood, 03/15/2021 2:29 PM 03/15/20 2:43 Venous) OFFICE SUPPORT ASSISTANT PM OFFICE SUPPORT ASSISTANT Lizet Navarro M.D. LAB BLOOD ADD-ON Performing Organization Address [facility] Phon e Number [facility]- [address] [place] [phone] [place] [address] (ABNORMAL) Basic Metabolic Panel (03/15/2021 2:29 PM OFFICE SUPPORT ASSISTANT) Analysis Performed At Patho logist Time Signature Potassium, P 3.2 (L) 3.6 - 5.2 03/15/2021 [facility] mmol/L 3:18 PM OFFICE SUPPORT ASSISTANT Sodium, P 138 135 - 145 03/15/2021 [facility] mmol/L 3:18 PM OFFICE SUPPORT ASSISTANT Chloride, P 105 98 - 107 03/15/2021 [facility] mmol/L 3:18 PM OFFICE SUPPORT ASSISTANT Bicarbonate, P 19 (L) 22 - 29 03/15/2021 [facility] mmol/L 3:18 PM OFFICE SUPPORT ASSISTANT Anion Gap, P 14 7 - 15 03/15/2021 MKTO 3:18 PM OFFICE SUPPORT ASSISTANT BUN (Blood Urea 8 6 - 21 03/15/2021 MKTO Nitrogen), P mg/dL 3:18 PM OFFICE SUPPORT ASSISTANT Creatinine 0.49 (L) 0.59 - 03/15/2021 [facility] 1.04 mg/dL 3:18 PM OFFICE SUPPORT ASSISTANT eGFR-Black/Afri >90 >=60 03/15/2021 MKTO can Afghan mL/min/BSA 3:18 PM OFFICE SUPPORT ASSISTANT Comment: ----ADDITIONAL INFORMATION---- Estimated GFR calculated using the 2009 CKD_EPI creatinine equation. eGFR Non-Black/ >90 >=60 mL/min/BSA 03/15/2021 3:18 PM OFFICE SUPPORT ASSISTANT MKTO Comment: ----ADDITIONAL INFORMATION---- Estimated GFR calculated using the 2009 CKD_EPI creatinine equation. Calcium, Total, P 9.0 8.6 - 10.0 mg/dL 03/15/2021 3:18 PM OFFICE SUPPORT ASSISTANT MKTO Glucose, P 125 70 - 140 mg/dL 03/15/2021 3:18 PM OFFICE SUPPORT ASSISTANT [facility] Specimen Anatomical Collection Method Collection Time Receive d Time (Source) Location / / Volume Laterality Blood (Blood, 03/15/2021 2:29 PM 03/15/20 2:43 Venous) OFFICE SUPPORT ASSISTANT PM OFFICE SUPPORT ASSISTANT Lizet Navarro M.D. LAB BLOOD ADD-ON Performing Organization Address [facility] Phon e Number [address] [address] [place] [address] [address] Transfuse Red Blood Cells : (03/15/2021 1:16 PM OFFICE SUPPORT ASSISTANT) Josep Jennings M.D. BLOOD TRANSFUSION ORDERABLES Transfuse Red Blood Cells : , 1 Units (03/15/2021 1:16 PM OFFICE SUPPORT ASSISTANT) Josep Jennings M.D. BLOOD TRANSFUSION ORDERABLES Glucose, POCT (03/15/2021 11:57 AM OFFICE SUPPORT ASSISTANT) P athologist Signature Glucose, POCT, 119 70 - 140 03/15/2021 MKTO B mg/dL 11:57 AM OFFICE SUPPORT ASSISTANT Specimen Anatomical Collection Method Collection Time Receive d Time (Source) Location / / Volume Laterality Blood 03/15/2021 11:57 03/15/2021 AM OFFICE SUPPORT ASSISTANT 12:08 PM OFFICE SUPPORT ASSISTANT Generic [facility] POCT ORDERABLES-MANUAL Performing Organization Address [facility] Phon e Number [address] [address] [place] [address] Glucose, POCT (03/15/2021 6:14 AM OFFICE SUPPORT ASSISTANT) P athologist Signature Glucose, POCT, 116 70 - 140 03/15/2021 MKTO B mg/dL 6:14 AM OFFICE SUPPORT ASSISTANT Specimen Anatomical Collection Method Collection Time Receive d Time (Source) Location / / Volume Laterality Blood 03/15/2021 6:14 AM OFFICE SUPPORT ASSISTANT 10:34 AM OFFICE SUPPORT ASSISTANT Generic [facility] POCT ORDERABLES-MANUAL Performing Organization Address City/[facility] Hospital/ZIP Code Phon e Number [facility]- [address] [place] [phone] [place] [address] [address] Magnesium (03/15/2021 4:18 AM OFFICE SUPPORT ASSISTANT) P athologist Signature Magnesium, P 1.7 1.7 - 2.3 03/15/2021 [facility] mg/dL 5:00 AM OFFICE SUPPORT ASSISTANT Specimen Anatomical Collection Method Collection Time Receive d Time (Source) Location / / Volume Laterality Blood (Blood, 03/15/2021 4:18 AM 03/15/20 4:35 Venous) OFFICE SUPPORT ASSISTANT AM OFFICE SUPPORT ASSISTANT Lowell Thomas APRNN.Shanita., M.S.N. LAB BLOOD ADD-O N Performing Organization Address City/[facility] Code Phon e Number [facility]- [address] [place] [phone] [place] [address] (ABNORMAL) Phosphorus Inorganic (03/15/2021 4:18 AM OFFICE SUPPORT ASSISTANT) athologist Signature Phosphorus 2.1 (L) 2.5 - 4.5 03/15/2021 [facility] (Inorganic), P mg/dL 5:00 AM OFFICE SUPPORT ASSISTANT Specimen Anatomical Collection Method Collection Time Receive d Time (Source) Location / / Volume Laterality Blood (Blood, 03/15/2021 4:18 AM 03/15/20 4:35 Venous) OFFICE SUPPORT ASSISTANT AM OFFICE SUPPORT ASSISTANT Katrin Thomas APRN.N.P., M.S.N. LAB BLOOD ADD-O N Performing Organization Address City/[facility]/ZIP Code Phon e Number [facility]- [address] [place] [phone] [place] [address] System [place] [address] (ABNORMAL) Prothrombin Time (PT) (03/15/2021 4:18 AM OFFICE SUPPORT ASSISTANT) [facility] gist Method Time Signature Prothrombin 26.3 (H) 9.4 - 12.5 03/15/2021 MKTO Time, P sec 4:58 AM OFFICE SUPPORT ASSISTANT INR 2.3 0.9 - 1.1 03/15/2021 MKTO 4:58 AM OFFICE SUPPORT ASSISTANT Comment: ----ADDITIONAL INFORMATION---- Standard intensity warfarin therapeutic range: 2.0 to 3.0 ?? High intensity warfarin therapeutic rang e: 2.5 to 3.5 Specimen Anatomical Collection Method Collection Time Receive d Time (Source) Location / / Volume Laterality Blood (Blood, 03/15/2021 4:18 AM 03/15/20 4:35 Venous) OFFICE SUPPORT ASSISTANT AM OFFICE SUPPORT ASSISTANT Nola Huitron APRN C.N.P., M.S.N. LAB BLOOD ADD-O N Performing Organization Address City/State/ZIP Code Phon e Number [facility]- [address] [place], [place] [phone] [place] [address] [address] (ABNORMAL) Comprehensive Metabolic Panel (03/15/2021 4:18 AM OFFICE SUPPORT ASSISTANT) Analysis Performed At [facility] logist Time Signature Potassium, P 2.7 (L) 3.6 - 5.2 03/15/2021 MK[facility] mmol/L 5:00 AM OFFICE SUPPORT ASSISTANT Sodium, P 140 135 - 145 03/15/2021 [facility] mmol/L 5:00 AM OFFICE SUPPORT ASSISTANT Chloride, P 107 98 - 107 03/15/2021 [facility] mmol/L 5:00 AM OFFICE SUPPORT ASSISTANT Bicarbonate, P 20 (L) 22 - 29 03/15/2021 [facility] mmol/L 5:00 AM OFFICE SUPPORT ASSISTANT Anion Gap, P 13 7 - 15 03/15/2021 MKTO 5:00 AM OFFICE SUPPORT ASSISTANT BUN (Blood Urea 11 6 - 21 03/15/2021 [facility]TO Nitrogen), P mg/dL 5:00 AM OFFICE SUPPORT ASSISTANT Creatinine 0.55 (L) 0.59 - 03/15/2021 MKTO 1.04 mg/dL 5:00 AM OFFICE SUPPORT ASSISTANT eGFR-Black/Afri >90 >=60 03/15/2021 MKTO can Afghan mL/min/BSA 5:00 AM OFFICE SUPPORT ASSISTANT Comment: ----ADDITIONAL INFORMATION---- Estimated GFR calculated using the 2009 CKD_EPI creatinine equation. eGFR Non-Black/ >90 >=60 mL/min/BSA 03/15/2021 5:00 AM OFFICE SUPPORT ASSISTANT MKTO Comment: ----ADDITIONAL INFORMATION---- Estimated GFR calculated using the 2009 CKD_EPI creatinine equation. Calcium, Total, P 9.1 8.6 - 10.0 mg/dL 03/15/2021 5:00 AM OFFICE SUPPORT ASSISTANT MKTO Glucose, P 127 70 - 140 mg/dL 03/15/2021 5:00 AM OFFICE SUPPORT ASSISTANT M KTO Protein, Total, P 5.7 (L) 6.3 - 7.9 g/dL 03/15/2021 5:00 A M OFFICE SUPPORT ASSISTANT MKTO Albumin, P 4.3 3.5 - 5.0 g/dL 03/15/2021 5:00 AM OFFICE SUPPORT ASSISTANT M KTO Aspartate Aminotransferase 38 8 - 43 U/L 03/15/2021 5 :00 AM OFFICE SUPPORT ASSISTANT MKTO (AST), P Alkaline Phosphatase, P 50 35 - 104 U/L 03/15/2021 5: 00 AM OFFICE SUPPORT ASSISTANT MKTO Alanine Aminotransferase 9 7 - 45 U/L 03/15/2021 5:0 0 AM OFFICE SUPPORT ASSISTANT MKTO (ALT), P Bilirubin, Total, P 5.6 (H) <=1.2 mg/dL 03/15/2021 5:00 AM OFFICE SUPPORT ASSISTANT MKTO Specimen Anatomical Collection Method Collection Time Receive d Time (Source) Location / / Volume Laterality Blood (Blood, 03/15/2021 4:18 AM 03/15/20 4:35 Venous) OFFICE SUPPORT ASSISTANT AM OFFICE SUPPORT ASSISTANT Nola Huitron APRN C.N.P., M.S.N. LAB BLOOD ADD-O N Performing Organization Address City/State/ZIP Code Phon e Number [facility]- [address] [place] [address] [place] [address] (ABNORMAL) CBC without Differential (03/15/2021 4:18 AM OFFICE SUPPORT ASSISTANT) Patholo gist Method Time Signature Hemoglobin 6.9 (L) 11.6 - 03/15/2021 MKTO 15.0 g/dL 5:00 AM OFFICE SUPPORT ASSISTANT Hematocrit 20.5 (L) 35.5 - 03/15/2021 MKTO 44.9 % 5:00 AM OFFICE SUPPORT ASSISTANT Erythrocytes 2.11 (L) 3.92 - 03/15/2021 MKTO 5.13 5:00 AM OFFICE SUPPORT ASSISTANT x10(12)/L MCV 97.2 78.2 - 03/15/2021 MKTO 97.9 fL 5:00 AM OFFICE SUPPORT ASSISTANT RBC Distrib Width 22.5 (H) 12.2 - 03/15/2021 MKTO 16.1 % 5:00 AM OFFICE SUPPORT ASSISTANT Platelet Count 86 (L) 157 - 371 03/15/2021 MKTO x10(9)/L 5:00 AM OFFICE SUPPORT ASSISTANT Leukocytes 6.3 3.4 - 9.6 03/15/2021 MKTO x10(9)/L 5:00 AM OFFICE SUPPORT ASSISTANT Specimen Anatomical Collection Method Collection Time Receive d Time (Source) Location / / Volume Laterality Blood (Blood, 03/15/2021 4:18 AM 03/15/20 4:35 Venous) OFFICE SUPPORT ASSISTANT AM OFFICE SUPPORT ASSISTANT Nola Huitron APRN, C.N.P., M.S.N. LAB BLOOD ADD-O N Performing Organization Address City/[facility] Phon e Number [phone] [place] [address] [place] [address] Glucose, POCT (03/14/2021 11:43 PM OFFICE SUPPORT ASSISTANT) P athologist Signature Glucose, POCT, 122 70 - 140 03/14/2021 MKTO B mg/dL 11:43 PM OFFICE SUPPORT ASSISTANT Specimen Anatomical Collection Method Collection Time Receive d Time (Source) Location / / Volume Laterality Blood 03/14/2021 11:43 03/15/2021 PM OFFICE SUPPORT ASSISTANT 12:29 AM OFFICE SUPPORT ASSISTANT Generic [facility] POCT ORDERABLES-MANUAL Performing Organization Address [facility] Phon e Number [address] [address] [place] [address] Glucose, POCT (03/14/2021 6:25 PM OFFICE SUPPORT ASSISTANT) P athologist Signature Glucose, POCT, 140 70 - 140 03/14/2021 MKTO B mg/dL 6:25 PM OFFICE SUPPORT ASSISTANT Specimen Anatomical Collection Method Collection Time Receive d Time (Source) Location / / Volume Laterality Blood 03/14/2021 6:25 PM 7:32 OFFICE SUPPORT ASSISTANT PM OFFICE SUPPORT ASSISTANT Generic [facility] POCT ORDERABLES-MANUAL Performing Organization Address City/[facility]/ZIP [facility] Phon e Number [address] [address] [place] [address] System [address] Glucose, POCT (03/14/2021 11:32 AM OFFICE SUPPORT ASSISTANT) P athologist Signature Glucose, POCT, 120 70 - 140 03/14/2021 MKTO B mg/dL 11:32 AM OFFICE SUPPORT ASSISTANT Specimen Anatomical Collection Method Collection Time Receive d Time (Source) Location / / Volume Laterality Blood 03/14/2021 11:32 03/14/2021 2:20 AM OFFICE SUPPORT ASSISTANT PM OFFICE SUPPORT ASSISTANT Generic [facility] POCT ORDERABLES-MANUAL Performing Organization Address City/[facility] Phon e Number [address] [address] [place] [address] System [address] Patient Status (03/14/2021 11:00 AM OFFICE SUPPORT ASSISTANT) P athologist Signature FIO2 0.30 0.21=AIR 03/14/2021 11:19 MKTO AM OFFICE SUPPORT ASSISTANT Specimen Anatomical Collection Method Collection Time Receive d Time (Source) Location / / Volume Laterality Blood 03/14/2021 11:00 03/14/2021 AM OFFICE SUPPORT ASSISTANT 11:14 AM OFFICE SUPPORT ASSISTANT Lizet Navarro M.D. LAB BLOOD NON ADD-ON Performing Organization Address City/State/ZIP Code Phon e Number [address] [address] [place] [address] (ABNORMAL) Blood Gas with Coox, Arterial (03/14/2021 11:00 AM OFFICE SUPPORT ASSISTANT) [facility] Method Time Signature P O2 120 (H) 83 - 108 03/14/2021 MKTO mm Hg 11:19 AM OFFICE SUPPORT ASSISTANT P CO2 33 32 - 45 03/14/2021 MKTO mm Hg 11:19 AM OFFICE SUPPORT ASSISTANT pH 7.42 7.35 - 03/14/2021 MKTO 7.45 pH 11:19 AM OFFICE SUPPORT ASSISTANT Base Excess -3 (L) -2 - 3 03/14/2021 [facility] mmol/L 11:19 AM OFFICE SUPPORT ASSISTANT HCO3 21 (L) 22 - 26 03/14/2021 MKTO mmol/L 11:19 AM OFFICE SUPPORT ASSISTANT Hemoglobin, B 7.8 (L) 11.6 - 03/14/2021 MKTO 15.0 g/dL 11:19 AM OFFICE SUPPORT ASSISTANT O2Hb 96.7 94.0 - 03/14/2021 MKTO 98.0 % 11:19 AM OFFICE SUPPORT ASSISTANT COHb 1.4 <3.0 % 03/14/2021 MKTO 11:19 AM OFFICE SUPPORT ASSISTANT MetHb 0.7 <1.5 % 03/14/2021 MKTO 11:19 AM OFFICE SUPPORT ASSISTANT CtO2 10.8 (L) 18.0 - 03/14/2021 MKTO 21.0 vol 11:19 AM OFFICE SUPPORT ASSISTANT % Arterial Arterial 03/14/2021 MKTO Sample Site Line 11:19 AM OFFICE SUPPORT ASSISTANT Specimen Anatomical Collection Method Collection Time Receive d Time (Source) Location / / Volume Laterality Blood (Blood, 03/14/2021 11:00 03/14/2021 Arterial) AM OFFICE SUPPORT ASSISTANT 11:14 AM OFFICE SUPPORT ASSISTANT Lizet Nvaarro M.D. LAB BLOOD NON ADD-ON Performing Organization Address City/State/ZIP Code Phon e Number [facility]- [address] [place] [phone] [place] [address] System in [place] [address] [place] [address] (ABNORMAL) Prothrombin Time (PT) (03/14/2021 9:22 AM OFFICE SUPPORT ASSISTANT) [facility] Method Time Signature Prothrombin 28.5 (H) 9.4 - 12.5 03/14/2021 MKTO Time, P sec 10:13 AM OFFICE SUPPORT ASSISTANT INR 2.5 0.9 - 1.1 03/14/2021 MKTO 10:13 AM OFFICE SUPPORT ASSISTANT Comment: ----ADDITIONAL INFORMATION---- Standard intensity warfarin therapeutic range: 2.0 to 3.0 ?? High intensity warfarin therapeutic rang e: 2.5 to 3.5 Specimen Anatomical Collection Method Collection Time Receive d Time (Source) Location / / Volume Laterality Blood (Blood, 03/14/2021 9:22 AM 03/14/20 9:26 Venous) OFFICE SUPPORT ASSISTANT AM OFFICE SUPPORT ASSISTANT Kerry Naranjo APRN, C.N.P., M.S.N. LAB BLOOD ADD-ON Performing Organization Address City/[facility]/ZIP [facility] Phon e Number [address] [address] [place] [address] Glucose, POCT (03/14/2021 6:28 AM OFFICE SUPPORT ASSISTANT) P athologist Signature Glucose, POCT, 109 70 - 140 03/14/2021 MKTO B mg/dL 6:28 AM OFFICE SUPPORT ASSISTANT Specimen Anatomical Collection Method Collection Time Receive d Time (Source) Location / / Volume Laterality Blood 03/14/2021 6:28 AM 6:51 OFFICE SUPPORT ASSISTANT AM OFFICE SUPPORT ASSISTANT Generic [facility] POCT ORDERABLES-MANUAL Performing Organization Address [facility] Phon e Number [address] [address] [facility] [place] [address] [place] [address] (ABNORMAL) pH (03/14/2021 5:41 AM OFFICE SUPPORT ASSISTANT) P athologist Signature pH 7.48 (H) 7.35 - 7.45 03/14/2021 MKTO pH 5:51 AM OFFICE SUPPORT ASSISTANT Specimen Anatomical Collection Method Collection Time Receive d Time (Source) Location / / Volume Laterality Blood 03/14/2021 5:41 AM 1 5:48 OFFICE SUPPORT ASSISTANT AM OFFICE SUPPORT ASSISTANT Katrin Thomas APRN.N.P., M.S.N. LAB HISTORICAL ORDERS Performing Organization Address [facility]/ZIP Code Phon e Number [address] [address] [place] [address] (ABNORMAL) Calcium, Ionized (03/14/2021 5:41 AM OFFICE SUPPORT ASSISTANT) athologist Signature Calcium, 4.61 (L) 4.65 - 03/14/2021 MKTO Ionized, B 5.30 mg/dL 5:51 AM OFFICE SUPPORT ASSISTANT Specimen Anatomical Collection Method Collection Time Receive d Time (Source) Location / / Volume Laterality Blood 03/14/2021 5:41 AM 5:48 OFFICE SUPPORT ASSISTANT AM OFFICE SUPPORT ASSISTANT Florence Thomas APRN.Shanita., M.S.N. LAB BLOOD NON A DD-ON Performing Organization Address City/[facility] Phon e Number [address] [address] [place] [address] System [address] Patient Status (03/14/2021 5:41 AM OFFICE SUPPORT ASSISTANT) athologist Signature FIO2 0.30 0.21=AIR 03/14/2021 5:51 MKTO AM OFFICE SUPPORT ASSISTANT Specimen Anatomical Collection Method Collection Time Receive d Time (Source) Location / / Volume Laterality Blood 03/14/2021 5:41 AM 5:48 OFFICE SUPPORT ASSISTANT AM OFFICE SUPPORT ASSISTANT Katrin Thomas APRN.N.Shanita., M.S.N. LAB BLOOD NON A DD-ON Performing Organization Address City/[facility] Phon e Number [address] [address] [place] [address] Phosphorus Inorganic (03/14/2021 5:41 AM OFFICE SUPPORT ASSISTANT) athologist Signature Phosphorus 2.8 2.5 - 4.5 03/14/2021 MKTO (Inorganic), P mg/dL 6:11 AM OFFICE SUPPORT ASSISTANT Specimen Anatomical Collection Method Collection Time Receive d Time (Source) Location / / Volume Laterality Blood (Blood, 03/14/2021 5:41 AM 03/14/20 5:48 Venous) OFFICE SUPPORT ASSISTANT AM OFFICE SUPPORT ASSISTANT Nola Huitron APRN, C.N.P., M.S.N. LAB BLOOD ADD-O N Performing Organization Address City/[facility] Phon e Number [facility]- [address] [place] [phone] [facility] [place] [address] Magnesium (03/14/2021 5:41 AM OFFICE SUPPORT ASSISTANT) athologist Signature Magnesium, P 2.3 1.7 - 2.3 03/14/2021 MKTO mg/dL 6:11 AM OFFICE SUPPORT ASSISTANT Specimen Anatomical Collection Method Collection Time Receive d Time (Source) Location / / Volume Laterality Blood (Blood, 03/14/2021 5:41 AM 03/14/20 5:48 Venous) OFFICE SUPPORT ASSISTANT AM OFFICE SUPPORT ASSISTANT Nola Huitron APRN, C.N.P., M.S.N. LAB BLOOD ADD-O N Performing Organization Address City/[facility] Phon e Number [facility]- [address] [place] [phone] [facility] [place] [phone] System in [address] (ABNORMAL) Blood Gas with Coox, Arterial (03/14/2021 5:41 AM OFFICE SUPPORT ASSISTANT) P athologist Signature P O2 146 (H) 83 - 108 03/14/2021 MKTO mm Hg 5:51 AM OFFICE SUPPORT ASSISTANT P CO2 32 32 - 45 mm 03/14/2021 MKTO Hg 5:51 AM OFFICE SUPPORT ASSISTANT pH 7.43 7.35 - 03/14/2021 MKTO 7.45 pH 5:51 AM OFFICE SUPPORT ASSISTANT Base Excess -2 -2 - 3 03/14/2021 MKTO mmol/L 5:51 AM OFFICE SUPPORT ASSISTANT HCO3 21 (L) 22 - 26 03/14/2021 MKTO mmol/L 5:51 AM OFFICE SUPPORT ASSISTANT Hemoglobin, B 8.0 (L) 11.6 - 03/14/2021 MKTO 15.0 g/dL 5:51 AM OFFICE SUPPORT ASSISTANT O2Hb 97.5 94.0 - 03/14/2021 MKTO 98.0 % 5:51 AM OFFICE SUPPORT ASSISTANT COHb 1.7 <3.0 % 03/14/2021 MKTO 5:51 AM OFFICE SUPPORT ASSISTANT MetHb 0.1 <1.5 % 03/14/2021 MKTO 5:51 AM OFFICE SUPPORT ASSISTANT CtO2 11.3 (L) 18.0 - 03/14/2021 MKTO 21.0 vol % 5:51 AM OFFICE SUPPORT ASSISTANT Arterial Art Line 03/14/2021 MKTO Sample Site 5:51 AM OFFICE SUPPORT ASSISTANT Specimen Anatomical Collection Method Collection Time Receive d Time (Source) Location / / Volume Laterality Blood (Blood, 03/14/2021 5:41 AM 03/14/20 5:48 Arterial) OFFICE SUPPORT ASSISTANT AM OFFICE SUPPORT ASSISTANT Nola Huitron APRN C.N.P., M.S.N. LAB BLOOD NON A DD-ON Performing Organization Address City/State/ZIP Code Phon e Number [facility]- [address] [place] [phone] [place] [address] [place] [address] (ABNORMAL) Basic Metabolic Panel (03/14/2021 5:41 AM OFFICE SUPPORT ASSISTANT) P athologist Signature Potassium, P 3.2 (L) 3.6 - 5.2 03/14/2021 MKTO mmol/L 6:11 AM OFFICE SUPPORT ASSISTANT Sodium, P 135 135 - 145 03/14/2021 MKTO mmol/L 6:11 AM OFFICE SUPPORT ASSISTANT Chloride, P 103 98 - 107 03/14/2021 MKTO mmol/L 6:11 AM OFFICE SUPPORT ASSISTANT Bicarbonate, P 19 (L) 22 - 29 03/14/2021 MKTO mmol/L 6:11 AM OFFICE SUPPORT ASSISTANT Anion Gap, P 13 7 - 15 03/14/2021 MKTO 6:11 AM OFFICE SUPPORT ASSISTANT BUN (Blood Urea 11 6 - 21 03/14/2021 MKTO Nitrogen), P mg/dL 6:11 AM OFFICE SUPPORT ASSISTANT Creatinine 0.60 0.59 - 03/14/2021 MKTO 1.04 mg/dL 6:11 AM OFFICE SUPPORT ASSISTANT eGFR-Black/Afri >90 >=60 03/14/2021 MKTO can Afghan mL/min/BSA 6:11 AM OFFICE SUPPORT ASSISTANT Comment: ----ADDITIONAL INFORMATION---- Estimated GFR calculated using the 2009 CKD_EPI creatinine equation. eGFR Non-Black/ >90 >=60 mL/min/BSA 03/14/2021 6:11 AM OFFICE SUPPORT ASSISTANT MKTO Comment: ----ADDITIONAL INFORMATION---- Estimated GFR calculated using the 2009 CKD_EPI creatinine equation. Calcium, Total, P 8.9 8.6 - 10.0 mg/dL 03/14/2021 6:11 AM OFFICE SUPPORT ASSISTANT MKTO Glucose, P 124 70 - 140 mg/dL 03/14/2021 6:11 AM OFFICE SUPPORT ASSISTANT M KTO Specimen Anatomical Collection Method Collection Time Receive d Time (Source) Location / / Volume Laterality Blood (Blood, 03/14/2021 5:41 AM 03/14/20 5:48 Venous) OFFICE SUPPORT ASSISTANT AM OFFICE SUPPORT ASSISTANT Nola Huitron APRN C.N.P., M.S.N. LAB BLOOD ADD-O N Performing Organization Address City/State/ZIP Code Phon e Number [facility]- [address] [place] [phone] [place] [address] [place] [address] [address] (ABNORMAL) CBC without Differential (03/14/2021 5:41 AM OFFICE SUPPORT ASSISTANT) [facility] gist Method Time Signature Hemoglobin 7.9 (L) 11.6 - 03/14/2021 MKTO 15.0 g/dL 6:11 AM OFFICE SUPPORT ASSISTANT Hematocrit 23.2 (L) 35.5 - 03/14/2021 MKTO 44.9 % 6:11 AM OFFICE SUPPORT ASSISTANT Erythrocytes 2.40 (L) 3.92 - 03/14/2021 MKTO 5.13 6:11 AM OFFICE SUPPORT ASSISTANT x10(12)/L MCV 96.7 78.2 - 03/14/2021 MKTO 97.9 fL 6:11 AM OFFICE SUPPORT ASSISTANT RBC Distrib Width 22.8 (H) 12.2 - 03/14/2021 MKTO 16.1 % 6:11 AM OFFICE SUPPORT ASSISTANT Platelet Count 90 (L) 157 - 371 03/14/2021 MKTO x10(9)/L 6:11 AM OFFICE SUPPORT ASSISTANT Leukocytes 6.6 3.4 - 9.6 03/14/2021 MKTO x10(9)/L 6:11 AM OFFICE SUPPORT ASSISTANT Specimen Anatomical Collection Method Collection Time Receive d Time (Source) Location / / Volume Laterality Blood (Blood, 03/14/2021 5:41 AM 03/14/20 5:48 Venous) OFFICE SUPPORT ASSISTANT AM OFFICE SUPPORT ASSISTANT Kiran Thomas APRNP., M.S.N. LAB BLOOD ADD-O N Performing Organization Address [facility]/ZIP Code Phon e Number [address] [address] [place] [address] [address] (ABNORMAL) Hepatic Function Panel (03/14/2021 5:40 AM OFFICE SUPPORT ASSISTANT) [facility] gist Method Time Signature Bilirubin, Total, P 6.0 (H) <=1.2 03/14/2021 [facility] mg/dL 10:49 AM OFFICE SUPPORT ASSISTANT Bilirubin, Direct, P 2.5 (H) 0.0 - 0.3 03/14/2021 [facility] mg/dL 10:49 AM OFFICE SUPPORT ASSISTANT Aspartate 48 (H) 8 - 43 03/14/2021 [facility] Aminotransferase U/L 10:49 AM OFFICE SUPPORT ASSISTANT (AST), P Alanine 10 7 - 45 03/14/2021 [facility] Aminotransferase U/L 10:49 AM OFFICE SUPPORT ASSISTANT (ALT), P Alkaline 64 35 - 104 03/14/2021 [facility] Phosphatase, P U/L 10:49 AM OFFICE SUPPORT ASSISTANT Albumin, P 4.3 3.5 - 5.0 03/14/2021 [facility] g/dL 10:49 AM OFFICE SUPPORT ASSISTANT Protein, Total, P 5.7 (L) 6.3 - 7.9 03/14/2021 [facility] g/dL 10:49 AM OFFICE SUPPORT ASSISTANT Specimen Anatomical Collection Method Collection Time Receive d Time (Source) Location / / Volume Laterality Blood (Blood, 03/14/2021 5:40 AM 03/14/20 Venous) OFFICE SUPPORT ASSISTANT 10:24 AM OFFICE SUPPORT ASSISTANT Leslie Kwong M.D. LAB BLOOD ADD-ON Performing Organization Address City/[facility]/ZIP Code Phon e Number [facility]- [address] [place] [phone] [place] [address] System [place] [address] DX Chest Portable 1 View (03/14/2021 4:33 AM OFFICE SUPPORT ASSISTANT) Anatomical Region Laterality Modality Chest, Thoracic RST LOS, Thoracic ARZ LOS, Thoracic N/A Digital Radiography FLA LOS Specimen (Source) Anatomical Collection Method Collection Time Re ceived Time Location / / Volume Laterality 03/14/2021 7:56 AM OFFICE SUPPORT ASSISTANT Impressions 03/14/2021 7:58 AM OFFICE SUPPORT ASSISTANT Persistent areas of bibasilar atelectasis or infiltrate more prominent on the right. Narrative 03/14/2021 7:58 AM OFFICE SUPPORT ASSISTANT EXAM: DX CHEST PORTABLE 1 VIEW COMPARISON: [...] prominent on the right. Ivan Lazo D.O. IMTristan DIAGNOSTIC IMAGING PROCE PERCY Glucose, POCT (03/14/2021 12:06 AM OFFICE SUPPORT ASSISTANT) P athologist Signature Glucose, POCT, 116 70 - 140 03/14/2021 MKTO B mg/dL 12:06 AM OFFICE SUPPORT ASSISTANT Specimen Anatomical Collection Method Collection Time Receive d Time (Source) Location / / Volume Laterality Blood 03/14/2021 12:06 03/14/2021 AM OFFICE SUPPORT ASSISTANT 12:23 AM OFFICE SUPPORT ASSISTANT Generic [facility] POCT ORDERABLES-MANUAL Performing Organization Address City/State/ZIP Code Phon e Number [facility]- [address] [place] [phone] [place] [address] System [address] (ABNORMAL) Hemoglobin (03/13/2021 6:29 PM OFFICE SUPPORT ASSISTANT) athologist Signature Hemoglobin 8.0 (L) 11.6 - 15.0 03/13/2021 [facility] g/dL 6:45 PM OFFICE SUPPORT ASSISTANT Specimen Anatomical Collection Method Collection Time Receive d Time (Source) Location / / Volume Laterality Blood (Blood, 03/13/2021 6:29 PM 03/13/20 6:40 Venous) OFFICE SUPPORT ASSISTANT PM OFFICE SUPPORT ASSISTANT Tariq CheryBSumaSSuma LAB BLOOD ADD-ON Performing Organization Address City/[facility]/ZIP Code Phon e Number [facility]- [address] [place] [phone] [place] [address] [address] Glucose, POCT (03/13/2021 6:16 PM OFFICE SUPPORT ASSISTANT) athologist Signature Glucose, POCT, 112 70 - 140 03/13/2021 MK[facility] B mg/dL 6:16 PM OFFICE SUPPORT ASSISTANT Specimen Anatomical Collection Method Collection Time Receive d Time (Source) Location / / Volume Laterality Blood 03/13/2021 6:16 PM OFFICE SUPPORT ASSISTANT 11:28 PM OFFICE SUPPORT ASSISTANT Generic [facility] POCT ORDERABLES-MANUAL Performing Organization Address [facility] Phon e Number [address] [address] [place] [address] System in [address] (ABNORMAL) Hemoglobin (03/13/2021 4:28 PM OFFICE SUPPORT ASSISTANT) athologist Signature Hemoglobin 8.0 (L) 11.6 - 15.0 03/13/2021 [facility] g/dL 4:39 PM OFFICE SUPPORT ASSISTANT Specimen Anatomical Collection Method Collection Time Receive d Time (Source) Location / / Volume Laterality Blood (Blood, 03/13/2021 4:28 PM 03/13/20 4:35 Arterial) OFFICE SUPPORT ASSISTANT PM OFFICE SUPPORT ASSISTANT Tariq CheryB.S. LAB BLOOD ADD-ON Performing Organization Address City/[facility]/ZIP Code Phon e Number [facility]- [address] [place] [address] [place] [address] Transfuse Red Blood Cells : (03/13/2021 12:13 PM OFFICE SUPPORT ASSISTANT) Tariq CheryB.S. BLOOD TRANSFUSION ORDERABLES Transfuse Red Blood Cells : , 1 Units (03/13/2021 12:13 PM OFFICE SUPPORT ASSISTANT) Tariq CheryB.S. BLOOD TRANSFUSION ORDERABLES Glucose, POCT (03/13/2021 11:46 AM OFFICE SUPPORT ASSISTANT) P athologist Signature Glucose, POCT, 130 70 - 140 03/13/2021 MK[facility] B mg/dL 11:46 AM OFFICE SUPPORT ASSISTANT Specimen Anatomical Collection Method Collection Time Receive d Time (Source) Location / / Volume Laterality Blood 03/13/2021 11:46 03/13/2021 AM OFFICE SUPPORT ASSISTANT 11:54 AM OFFICE SUPPORT ASSISTANT Generic [facility] POCT ORDERABLES-MANUAL Performing Organization Address [facility] Phon e Number [address] [address] [place] [address] (ABNORMAL) Ferritin (03/13/2021 8:28 AM OFFICE SUPPORT ASSISTANT) P athologist Signature Ferritin, S 801 (H) 6 - 175 03/13/2021 [facility] mcg/L 10:15 AM OFFICE SUPPORT ASSISTANT Comment: Biotin has been identified by the [facility] as a potential interfering substance. ??Higher concentr ations of biotin may be found in multivitamins, hair/nail supple ments, and workout supplements. ??If the result does not [facility] clinical observations, repeat testing after patient refrains fr om the use of supplements for at least 12 hours. Specimen Anatomical Collection Method Collection Time Receive d Time (Source) Location / / Volume Laterality Blood (Blood, 03/13/2021 8:28 AM 03/13/20 21 8:32 Venous) OFFICE SUPPORT ASSISTANT AM OFFICE SUPPORT ASSISTANT Tariq CheryB.S. LAB BLOOD ADD-ON Performing Organization Address City/[facility]/ZIP [facility] Phon e Number [facility]- [address] [place] [phone] [place] [address] (ABNORMAL) Folate (03/13/2021 8:28 AM OFFICE SUPPORT ASSISTANT) athologist Signature Folate, S 2.8 (L) >=4.0 mcg/L 03/13/2021 MKTO 2:38 PM OFFICE SUPPORT ASSISTANT Comment: Biotin has been identified by the [...] (Blood, 03/13/2021 8:28 AM 03/13/20 8:32 Venous) OFFICE SUPPORT ASSISTANT AM OFFICE SUPPORT ASSISTANT Tariq Santoyo.S. LAB BLOOD ADD-ON Performing Organization Address City/[facility] Phon e Number [address] [address] [place] [address] [address] Vitamin B12 Assay (03/13/2021 8:28 AM OFFICE SUPPORT ASSISTANT) athologist Signature Vitamin B12 690 015 - 1248 03/13/2021 [facility] Assay, S ng/L 4:13 PM OFFICE SUPPORT ASSISTANT Comment: Biotin has been identified by the [...] (Blood, 03/13/2021 8:28 AM 03/13/20 8:32 Venous) OFFICE SUPPORT ASSISTANT AM OFFICE SUPPORT ASSISTANT Tariq Santoyo.S. LAB BLOOD ADD-ON Performing Organization Address City/[facility] Phon e Number [facility] [address] [address] [place] [address] (ABNORMAL) Iron and Total Iron-Binding Capacity (03/13/2021 8:28 AM OFFICE SUPPORT ASSISTANT) athologist Signature Iron 77 35 - 145 03/13/2021 [facility] mcg/dL 10:15 AM OFFICE SUPPORT ASSISTANT Total Iron 68 (L) 250 - 400 03/13/2021 [facility] Binding mcg/dL 10:15 AM OFFICE SUPPORT ASSISTANT Capacity Percent >90 (H) 14 - 50 % 03/13/2021 [facility] Saturation 10:15 AM OFFICE SUPPORT ASSISTANT Specimen Anatomical Collection Method Collection Time Receive d Time (Source) Location / / Volume Laterality Blood (Blood, 03/13/2021 8:28 AM 03/13/20 8:32 Venous) OFFICE SUPPORT ASSISTANT AM OFFICE SUPPORT ASSISTANT Tariq Santillan LAB BLOOD ADD-ON Performing Organization Address City/State/ZIP Code Phon e Number [address] [address] [place] [address] System [address] Patient Status (03/13/2021 5:37 AM OFFICE SUPPORT ASSISTANT) athologist Signature FIO2 0.30 0.21=AIR 03/13/2021 5:56 MK[facility] AM OFFICE SUPPORT ASSISTANT Specimen Anatomical Collection Method Collection Time Receive d Time (Source) Location / / Volume Laterality Blood 03/13/2021 5:37 AM 5:50 OFFICE SUPPORT ASSISTANT AM OFFICE SUPPORT ASSISTANT Ivan Lazo D.O. LAB BLOOD NON ADD-ON Performing Organization Address City/State/ZIP Code Phon e Number [address] [address] [place] [address] (ABNORMAL) Blood Gas with Coox, Arterial (03/13/2021 5:37 AM OFFICE SUPPORT ASSISTANT) athologist Signature P O2 141 (H) 83 - 108 03/13/2021 [facility] mm Hg 5:56 AM OFFICE SUPPORT ASSISTANT P CO2 30 (L) 32 - 45 mm 03/13/2021 [facility] Hg 5:56 AM OFFICE SUPPORT ASSISTANT pH 7.46 (H) 7.35 - 03/13/2021 [facility] 7.45 pH 5:56 AM OFFICE SUPPORT ASSISTANT Base Excess -2 -2 - 3 03/13/2021 [facility] mmol/L 5:56 AM OFFICE SUPPORT ASSISTANT HCO3 21 (L) 22 - 26 03/13/2021 [facility] mmol/L 5:56 AM OFFICE SUPPORT ASSISTANT Hemoglobin, B 7.2 (L) 11.6 - 03/13/2021 [facility] 15.0 g/dL 5:56 AM OFFICE SUPPORT ASSISTANT O2Hb 97.9 94.0 - 03/13/2021 [facility] 98.0 % 5:56 AM OFFICE SUPPORT ASSISTANT COHb 1.5 <3.0 % 03/13/2021 [facility] 5:56 AM OFFICE SUPPORT ASSISTANT MetHb 0.0 <1.5 % 03/13/2021 [facility] 5:56 AM OFFICE SUPPORT ASSISTANT CtO2 10.3 (L) 18.0 - 03/13/2021 [facility] 21.0 vol % 5:56 AM OFFICE SUPPORT ASSISTANT Arterial Art Line 03/13/2021 [facility] Sample Site 5:56 AM OFFICE SUPPORT ASSISTANT Specimen Anatomical Collection Method Collection Time Receive d Time (Source) Location / / Volume Laterality Blood (Blood, 03/13/2021 5:37 AM 03/13/20 5:50 Arterial) OFFICE SUPPORT ASSISTANT AM OFFICE SUPPORT ASSISTANT Ivan Lazo D.O. LAB BLOOD NON ADD-ON Performing Organization Address City/State/ZIP Code Phon e Number [phone] [place] [address] [place] [address] [address] Phosphorus Inorganic (03/13/2021 5:37 AM OFFICE SUPPORT ASSISTANT) P athologist Signature Phosphorus 3.1 2.5 - 4.5 03/13/2021 [facility] (Inorganic), P mg/dL 6:17 AM OFFICE SUPPORT ASSISTANT Specimen Anatomical Collection Method Collection Time Receive d Time (Source) Location / / Volume Laterality Blood (Blood, 03/13/2021 5:37 AM 03/13/20 5:50 Venous) OFFICE SUPPORT ASSISTANT AM OFFICE SUPPORT ASSISTANT Barrera Vargas M.D. LAB BLOOD ADD-ON Performing Organization Address City/State/ZIP Code Phon e Number [facility]- [address] [place] [address] [place] [address] [address] (ABNORMAL) Magnesium (03/13/2021 5:37 AM OFFICE SUPPORT ASSISTANT) P athologist Signature Magnesium, P 2.6 (H) 1.7 - 2.3 03/13/2021 [facility] mg/dL 6:17 AM OFFICE SUPPORT ASSISTANT Specimen Anatomical Collection Method Collection Time Receive d Time (Source) Location / / Volume Laterality Blood (Blood, 03/13/2021 5:37 AM 03/13/20 5:50 Venous) OFFICE SUPPORT ASSISTANT AM OFFICE SUPPORT ASSISTANT Barrera Vargas M.D. LAB BLOOD ADD-ON Performing Organization Address City/[facility] Phon e Number [facility]- [address] [place] [address] [facility] [place] [address] [address] Triglycerides (03/13/2021 5:37 AM OFFICE SUPPORT ASSISTANT) P athologist Signature Triglycerides 127 mg/dL 03/13/2021 [facility] 6:17 AM OFFICE SUPPORT ASSISTANT Comment: ----REFERENCE VALUE---- Normal: <150 Borderline high: 150-199 High: 200-499 Very high: > or =500 Specimen Anatomical Collection Method Collection Time Receive d Time (Source) Location / / Volume Laterality Blood (Blood, 03/13/2021 5:37 AM 03/13/20 5:50 Venous) OFFICE SUPPORT ASSISTANT AM OFFICE SUPPORT ASSISTANT Barrera Vargas M.D. LAB BLOOD ADD-ON Performing Organization Address City/State/ZIP [facility] Phon e Number [facility]- [address] [place] [phone] [place] [address] [address] (ABNORMAL) Comprehensive Metabolic Panel (03/13/2021 5:37 AM OFFICE SUPPORT ASSISTANT) Analysis Performed At Patho logist Time Signature Potassium, P 3.9 3.6 - 5.2 03/13/2021 [facility] mmol/L 6:17 AM OFFICE SUPPORT ASSISTANT Sodium, P 135 135 - 145 03/13/2021 [facility] mmol/L 6:17 AM OFFICE SUPPORT ASSISTANT Chloride, P 103 98 - 107 03/13/2021 [facility] mmol/L 6:17 AM OFFICE SUPPORT ASSISTANT Bicarbonate, P 20 (L) 22 - 29 03/13/2021 [facility] mmol/L 6:17 AM OFFICE SUPPORT ASSISTANT Anion Gap, P 12 7 - 15 03/13/2021 [facility] 6:17 AM OFFICE SUPPORT ASSISTANT BUN (Blood Urea 8 6 - 21 03/13/2021 MKTO Nitrogen), P mg/dL 6:17 AM OFFICE SUPPORT ASSISTANT Creatinine 0.56 (L) 0.59 - 03/13/2021 MK[facility] 1.04 mg/dL 6:17 AM OFFICE SUPPORT ASSISTANT eGFR-Black/Afri >90 >=60 03/13/2021 [facility] can Afghan mL/min/BSA 6:17 AM OFFICE SUPPORT ASSISTANT Comment: ----ADDITIONAL INFORMATION---- Estimated GFR calculated using the 2009 CKD_EPI creatinine equation. eGFR Non-Black/ >90 >=60 mL/min/BSA 03/13/2021 6:17 AM OFFICE SUPPORT ASSISTANT MKTO Comment: ----ADDITIONAL INFORMATION---- Estimated GFR calculated using the 2009 CKD_EPI creatinine equation. Calcium, Total, P 9.0 8.6 - 10.0 mg/dL 03/13/2021 6:17 AM OFFICE SUPPORT ASSISTANT MKTO Glucose, P 115 70 - 140 mg/dL 03/13/2021 6:17 AM OFFICE SUPPORT ASSISTANT M KTO Protein, Total, P 5.7 (L) 6.3 - 7.9 g/dL 03/13/2021 6:17 A M OFFICE SUPPORT ASSISTANT MKTO Albumin, P 3.9 3.5 - 5.0 g/dL 03/13/2021 6:17 AM OFFICE SUPPORT ASSISTANT M KTO Aspartate Aminotransferase 64 (H) 8 - 43 U/L 03/13/2021 6 :17 AM OFFICE SUPPORT ASSISTANT MKTO (AST), P Alkaline Phosphatase, P 90 35 - 104 U/L 03/13/2021 6: 17 AM OFFICE SUPPORT ASSISTANT MKTO Alanine Aminotransferase 14 7 - 45 U/L 03/13/2021 6:1 7 AM OFFICE SUPPORT ASSISTANT MKTO (ALT), P Bilirubin, Total, P 6.1 (H) <=1.2 mg/dL 03/13/2021 6:17 AM OFFICE SUPPORT ASSISTANT MKTO Specimen Anatomical Collection Method Collection Time Receive d Time (Source) Location / / Volume Laterality Blood (Blood, 03/13/2021 5:37 AM 03/13/20 5:50 Venous) OFFICE SUPPORT ASSISTANT AM OFFICE SUPPORT ASSISTANT Barrera Vargas M.D. LAB BLOOD ADD-ON Performing Organization Address City/State/ZIP Code Phon e Number [facility]- [address] [place] [phone] [place] [address] [address] (ABNORMAL) CBC with Differential, Blood (03/13/2021 5:37 AM OFFICE SUPPORT ASSISTANT) [facility] Method Time Signature Hemoglobin 7.1 (L) 11.6 - 03/13/2021 MK[facility] 15.0 g/dL 7:27 AM OFFICE SUPPORT ASSISTANT Hematocrit 21.0 (L) 35.5 - 03/13/2021 MKTO 44.9 % 7:27 AM OFFICE SUPPORT ASSISTANT Erythrocytes 2.11 (L) 3.92 - 03/13/2021 MKTO 5.13 7:27 AM OFFICE SUPPORT ASSISTANT x10(12)/L MCV 99.5 (H) 78.2 - 03/13/2021 MKTO 97.9 fL 7:27 AM OFFICE SUPPORT ASSISTANT RBC Distrib Width 20.1 (H) 12.2 - 03/13/2021 MKTO 16.1 % 7:27 AM OFFICE SUPPORT ASSISTANT Platelet Count 101 (L) 157 - 371 03/13/2021 [facility] x10(9)/L 7:27 AM OFFICE SUPPORT ASSISTANT Leukocytes 8.4 3.4 - 9.6 03/13/2021 MKTO x10(9)/L 7:27 AM OFFICE SUPPORT ASSISTANT Neutrophils 6.72 (H) 1.56 - 03/13/2021 MKTO 6.45 7:27 AM OFFICE SUPPORT ASSISTANT x10(9)/L Lymphocytes 0.85 (L) 0.95 - 03/13/2021 MKTO 3.07 7:27 AM OFFICE SUPPORT ASSISTANT x10(9)/L Monocytes 0.86 (H) 0.26 - 03/13/2021 MKTO 0.81 7:27 AM OFFICE SUPPORT ASSISTANT x10(9)/L Eosinophils <0.03 0.03 - 03/13/2021 MKTO 0.48 7:27 AM OFFICE SUPPORT ASSISTANT x10(9)/L Basophils <0.03 0.01 - 03/13/2021 MKTO 0.08 7:27 AM OFFICE SUPPORT ASSISTANT x10(9)/L Specimen Anatomical Collection Method Collection Time Receive d Time (Source) Location / / Volume Laterality Blood (Blood, 03/13/2021 5:37 AM 03/13/20 5:50 Venous) OFFICE SUPPORT ASSISTANT AM OFFICE SUPPORT ASSISTANT Barrera Vargas M.D. LAB BLOOD ADD-ON Performing Organization Address City/State/ZIP Code Phon e Number [facility]- [address] [place] [phone] [place] [address] (ABNORMAL) Ammonia (03/13/2021 5:37 AM OFFICE SUPPORT ASSISTANT) P athologist Signature Ammonia, P 110 (H) <=51 03/13/2021 MKTO mcmol/L 6:16 AM OFFICE SUPPORT ASSISTANT Specimen Anatomical Collection Method Collection Time Receive d Time (Source) Location / / Volume Laterality Blood (Blood, 03/13/2021 5:37 AM 03/13/20 5:49 Venous) OFFICE SUPPORT ASSISTANT AM OFFICE SUPPORT ASSISTANT Barrera Vargas M.D. LAB BLOOD NON ADD-ON Performing Organization Address City/[facility] Hospital/[facility] Code Phon e Number [address] [address] [place] [address] DX Chest Portable 1 View (03/13/2021 4:32 AM OFFICE SUPPORT ASSISTANT) Anatomical Region Laterality Modality Chest, Thoracic RST LOS, Thoracic ARZ LOS, Thoracic N/A Digital Radiography FLA LOS Specimen (Source) Anatomical Collection Method Collection Time Re ceived Time Location / / Volume Laterality 03/13/2021 8:07 AM OFFICE SUPPORT ASSISTANT Impressions 03/13/2021 8:08 AM OFFICE SUPPORT ASSISTANT Persistent right basilar infiltrate or a telectasis. Narrative 03/13/2021 8:08 AM OFFICE SUPPORT ASSISTANT EXAM: DX CHEST PORTABLE 1 VIEW COMPARISON: [...] a telectasis. Ivan PERALES DIAGNOSTIC IMAGING PROCE PERCY (ABNORMAL) Basic Metabolic Panel (03/13/2021 1:20 AM OFFICE SUPPORT ASSISTANT) Analysis Performed At Patho logist Time Signature Potassium, P 2.9 (L) 3.6 - 5.2 03/13/2021 MK[facility] mmol/L 1:58 AM OFFICE SUPPORT ASSISTANT Sodium, P 134 (L) 135 - 145 03/13/2021 [facility] mmol/L 1:58 AM OFFICE SUPPORT ASSISTANT Chloride, P 99 98 - 107 03/13/2021 [facility] mmol/L 1:58 AM OFFICE SUPPORT ASSISTANT Bicarbonate, P 20 (L) 22 - 29 03/13/2021 MK[facility] mmol/L 1:58 AM OFFICE SUPPORT ASSISTANT Anion Gap, P 15 7 - 15 03/13/2021 MKTO 1:58 AM OFFICE SUPPORT ASSISTANT BUN (Blood Urea 8 6 - 21 03/13/2021 MKTO Nitrogen), P mg/dL 1:58 AM OFFICE SUPPORT ASSISTANT Creatinine 0.56 (L) 0.59 - 03/13/2021 MKTO 1.04 mg/dL 1:58 AM OFFICE SUPPORT ASSISTANT eGFR-Black/Afri >90 >=60 03/13/2021 MKTO can Afghan mL/min/BSA 1:58 AM OFFICE SUPPORT ASSISTANT Comment: ----ADDITIONAL INFORMATION---- Estimated GFR calculated using the 2009 CKD_EPI creatinine equation. eGFR Non-Black/ >90 >=60 mL/min/BSA 03/13/2021 1:58 AM OFFICE SUPPORT ASSISTANT MKTO Comment: ----ADDITIONAL INFORMATION---- Estimated GFR calculated using the 2009 CKD_EPI creatinine equation. Calcium, Total, P 8.9 8.6 - 10.0 mg/dL 03/13/2021 1:58 AM OFFICE SUPPORT ASSISTANT MKTO Glucose, P 120 70 - 140 mg/dL 03/13/2021 1:58 AM OFFICE SUPPORT ASSISTANT M KTO Specimen Anatomical Collection Method Collection Time Receive d Time (Source) Location / / Volume Laterality Blood (Blood, 03/13/2021 1:20 AM 03/13/20 1:23 Venous) OFFICE SUPPORT ASSISTANT AM OFFICE SUPPORT ASSISTANT Ivan Lazo D.O. LAB BLOOD ADD-ON Performing Organization Address City/State/ZIP Code Phon e Number [facility]- [address] [place] [phone] [place] [address] (ABNORMAL) Hemoglobin (03/13/2021 12:11 AM OFFICE SUPPORT ASSISTANT) athologist Signature Hemoglobin 7.4 (L) 11.6 - 15.0 03/13/2021 MKTO g/dL 12:18 AM OFFICE SUPPORT ASSISTANT Specimen Anatomical Collection Method Collection Time Receive d Time (Source) Location / / Volume Laterality Blood (Blood, 03/13/2021 12:11 03/13/2021 Venous) AM OFFICE SUPPORT ASSISTANT 12:15 AM OFFICE SUPPORT ASSISTANT Barrera Vargas M.D. LAB BLOOD ADD-ON Performing Organization Address City/[facility] Hospital/ZIP Code Phon e Number [facility]- [address] [place] [phone] [place] [address] [address] Glucose, POCT (03/12/2021 11:44 PM OFFICE SUPPORT ASSISTANT) athologist Signature Glucose, POCT, 120 70 - 140 03/12/2021 MKTO B mg/dL 11:44 PM OFFICE SUPPORT ASSISTANT Specimen Anatomical Collection Method Collection Time Receive d Time (Source) Location / / Volume Laterality Blood 03/12/2021 11:44 03/12/2021 PM OFFICE SUPPORT ASSISTANT 11:51 PM OFFICE SUPPORT ASSISTANT Generic [facility] POCT ORDERABLES-MANUAL Performing Organization Address City/[facility] Hospital/ZIP Code Phon e Number [facility]- [address] [place] [address] [place] [address] Ethyl Glucuronide Screen with Reflex, Urine (03/12/2021 11:12 PM OFFICE SUPPORT ASSISTANT) [facility] gist Method Time Signature Ethyl Negative Cutoff: 03/14/2021 [facility] Glucuronide Scrn 500 ng/mL 9:46 AM OFFICE SUPPORT ASSISTANT w/Reflex, U Comment: ----ADDITIONAL INFORMATION---- This test was developed and its performa nce characteristics determined by [facility] in a manner consistent with CLIA requirements. This test has not been cleared or approved by the [place] d and Drug Administration. Specimen Anatomical Collection Method Collection Time Receive d Time (Source) Location / / Volume Laterality Urine (Urine, 03/12/2021 11:12 03/14/2021 8:00 Clean Catch) PM OFFICE SUPPORT ASSISTANT AM OFFICE SUPPORT ASSISTANT Sera Morgan P.A.-C. LAB URINE ORDERABLES Performing Organization Address City/State/ZIP Code Phon e Number [facility] [address] [place] [address] SU[facility] C[facility] [place] [address] Laboratory Medicine and Pathology [address] [place] INTUB W ETT, LDA ANE ENDOTRACHEAL AIRWAY (03/12/2021 10:30 PM OFFICE SUPPORT ASSISTANT) Narrative Barrera To M.D. - 2020 10:30 PM OFFICE SUPPORT ASSISTANT Barrera To M.D. ? 03/12/2021 ??6:07 PM Intubation Date/Time: 03/12/2021 10:30 PM Performed by: Barrera To M.D. Authorized by: Barrera To M.D. Patient location during procedure: ICU / PCU PROCEDURE DETAILS: Mask difficulty assessment: easy mask Final airway type: video laryngoscope Laryngeal Manipulation: no ?? Final best view of glottic structures - Cormack/Lehane Score: grade 2A ETT location: oral VL device: glide scope Elk scope blade size: 3 Adult tube size: [...] ORDERABLES (ABNORMAL) Glucose, POCT (03/12/2021 6:11 PM OFFICE SUPPORT ASSISTANT) P athologist Signature Glucose, POCT, 170 (H) 70 - 140 03/12/2021 MKTO B mg/dL 6:11 PM OFFICE SUPPORT ASSISTANT Specimen Anatomical Collection Method Collection Time Receive d Time (Source) Location / / Volume Laterality Blood 03/12/2021 6:11 PM 6:23 OFFICE SUPPORT ASSISTANT PM OFFICE SUPPORT ASSISTANT Generic [facility] POCT ORDERABLES-MANUAL Performing Organization Address City/State/ZIP Code Phon e Number [facility]- [address] [place] [phone] [place] [address] [place] [address] System in [place] [id number] [facility] [place] PARACENTESIS ABD WO IMG (03/12/2021 6:02 PM OFFICE SUPPORT ASSISTANT) Narrative Barrera To M.D. - 2020 6:02 PM OFFICE SUPPORT ASSISTANT Barrera To M.D. ? 03/12/2021 ??6:07 PM [...] PROCEDURE/MINOR SURGICAL ORDERABLES THORACENTESIS (03/12/2021 6:02 PM OFFICE SUPPORT ASSISTANT) Narrative Barrera To M.D. - 2020 6:02 PM OFFICE SUPPORT ASSISTANT Barrera To M.D. ? 03/12/2021 ??6:07 PM Thoracentesis Date/Time: 03/12/2021 6:02 PM Performed by: Barrera To M.D. Authorized by: Barrera To M.D. PROCEDURE DETAILS Location: right mid-axillary Intercostal space: 3rd Puncture method: [id number] cathete r Number of attempts: 1 Drainage [...] lidocaine Barrera Vargas M.D. PROCEDURE/MINOR SURGICAL ORDERABLES IA INS NON-ALEN CVC >5YR, IA US GUIDE VASC ACCESS, LDA ANE CENTRAL LINE TRIPLE LUMEN, MC ANE CENTRAL LINE GENERIC PERFORMABLE (03/12/2021 6:02 PM OFFICE SUPPORT ASSISTANT) Narrative Barrera To M.D. - 2020 6:02 PM OFFICE SUPPORT ASSISTANT Barrera To M.D. ? 03/12/2021 ??6:07 PM [...] Red Blood Cells : (03/12/2021 5:39 PM OFFICE SUPPORT ASSISTANT) Barrera Vargas M.D. BLOOD TRANSFUSION ORDERA BLES Transfuse Red Blood Cells : , 1 Units (03/12/2021 5:39 PM OFFICE SUPPORT ASSISTANT) Barrera Vargas M.D. BLOOD TRANSFUSION ORDERA BLES (ABNORMAL) Hemoglobin (03/12/2021 5:35 PM OFFICE SUPPORT ASSISTANT) P athologist Signature Hemoglobin 7.6 (L) 11.6 - 15.0 03/12/2021 MKTO g/dL 5:50 PM OFFICE SUPPORT ASSISTANT Specimen Anatomical Collection Method Collection Time Receive d Time (Source) Location / / Volume Laterality Blood (Blood, 03/12/2021 5:35 PM 03/12/20 5:46 Venous) OFFICE SUPPORT ASSISTANT PM OFFICE SUPPORT ASSISTANT Barrera Vargas M.D. LAB BLOOD ADD-ON Performing Organization Address City/State/ZIP Code Phon e Number [facility]- [address] [place] [phone] [place] [address] Calcium, Ionized (03/12/2021 5:35 PM OFFICE SUPPORT ASSISTANT) athologist Signature Calcium, 4.70 4.65 - 5.30 03/12/2021 [facility] Ionized, B mg/dL 5:49 PM OFFICE SUPPORT ASSISTANT Specimen Anatomical Collection Method Collection Time Receive d Time (Source) Location / / Volume Laterality Blood 03/12/2021 5:35 PM 5:46 OFFICE SUPPORT ASSISTANT PM OFFICE SUPPORT ASSISTANT Authorizing Provider Result Woodrow Vargas M.D. LAB BLOOD NON ADD-ON Performing Organization Address City/State/ZIP Code Phon e Number [facility]- [address] [place] [phone] [facility] [place] [address] (ABNORMAL) pH (03/12/2021 5:35 PM OFFICE SUPPORT ASSISTANT) P athologist Signature pH 7.46 (H) 7.35 - 7.45 03/12/2021 MKTO pH 5:49 PM OFFICE SUPPORT ASSISTANT Specimen Anatomical Collection Method Collection Time Receive d Time (Source) Location / / Volume Laterality Blood 03/12/2021 5:35 PM 5:46 OFFICE SUPPORT ASSISTANT PM OFFICE SUPPORT ASSISTANT Authorizing Provider Result Woodrow Vargas M.D. LAB HISTORICAL ORDERS Performing Organization Address City/State/ZIP Code Phon e Number [facility]- [address] [place] [phone] [place] [address] (ABNORMAL) Ammonia (03/12/2021 5:35 PM OFFICE SUPPORT ASSISTANT) P athologist Signature Ammonia, P 80 (H) <=51 03/12/2021 MKTO mcmol/L 6:06 PM OFFICE SUPPORT ASSISTANT Specimen Anatomical Collection Method Collection Time Receive d Time (Source) Location / / Volume Laterality Blood (Blood, 03/12/2021 5:35 PM 03/12/20 5:46 Venous) OFFICE SUPPORT ASSISTANT PM OFFICE SUPPORT ASSISTANT Barrera Vargas M.D. LAB BLOOD NON ADD-ON Performing Organization Address City/State/ZIP Code Phon e Number [facility]- [address] [place] [phone] [place] [address] [address] (ABNORMAL) Phosphorus Inorganic (03/12/2021 5:35 PM OFFICE SUPPORT ASSISTANT) P athologist Signature Phosphorus 4.6 (H) 2.5 - 4.5 03/12/2021 [facility] (Inorganic), P mg/dL 6:07 PM OFFICE SUPPORT ASSISTANT Specimen Anatomical Collection Method Collection Time Receive d Time (Source) Location / / Volume Laterality Blood (Blood, 03/12/2021 5:35 PM 03/12/20 5:46 Venous) OFFICE SUPPORT ASSISTANT PM OFFICE SUPPORT ASSISTANT Barrera Vargas M.D. LAB BLOOD ADD-ON Performing Organization Address City/State/ZIP Code Phon e Number [facility]- [address] [place] [phone] [place] [address] System [address] (ABNORMAL) Magnesium (03/12/2021 5:35 PM OFFICE SUPPORT ASSISTANT) P athologist Signature Magnesium, P 3.7 (H) 1.7 - 2.3 03/12/2021 [facility] mg/dL 6:07 PM OFFICE SUPPORT ASSISTANT Specimen Anatomical Collection Method Collection Time Receive d Time (Source) Location / / Volume Laterality Blood (Blood, 03/12/2021 5:35 PM 03/12/20 5:46 Venous) OFFICE SUPPORT ASSISTANT PM OFFICE SUPPORT ASSISTANT Barrera Vargas M.D. LAB BLOOD ADD-ON Performing Organization Address City/State/ZIP Code Phon e Number [facility]- [facility] [place] [address] [place] [address] System in [place] [address] [facility] (ABNORMAL) Comprehensive Metabolic Panel (03/12/2021 5:35 PM OFFICE SUPPORT ASSISTANT) Analysis Performed At Patho logist Time Signature Potassium, P 2.5 (CL) 3.6 - 5.2 03/12/2021 [facility] mmol/L 6:08 PM OFFICE SUPPORT ASSISTANT Sodium, P 133 (L) 135 - 145 03/12/2021 [facility] mmol/L 6:07 PM OFFICE SUPPORT ASSISTANT Chloride, P 98 98 - 107 03/12/2021 [facility] mmol/L 6:07 PM OFFICE SUPPORT ASSISTANT Bicarbonate, P 20 (L) 22 - 29 03/12/2021 [facility] mmol/L 6:07 PM OFFICE SUPPORT ASSISTANT Anion Gap, P 15 7 - 15 03/12/2021 [facility] 6:07 PM OFFICE SUPPORT ASSISTANT BUN (Blood Urea 9 6 - 21 03/12/2021 [facility] Nitrogen), P mg/dL 6:07 PM OFFICE SUPPORT ASSISTANT Creatinine 0.57 (L) 0.59 - 03/12/2021 [facility] 1.04 mg/dL 6:07 PM OFFICE SUPPORT ASSISTANT eGFR-Black/Afri >90 >=60 03/12/2021 MKTO can Afghan mL/min/BSA 6:07 PM OFFICE SUPPORT ASSISTANT Comment: ----ADDITIONAL INFORMATION---- Estimated GFR calculated using the 2009 CKD_EPI creatinine equation. eGFR Non-Black/ >90 >=60 mL/min/BSA 03/12/2021 6:07 PM OFFICE SUPPORT ASSISTANT MKTO Comment: ----ADDITIONAL INFORMATION---- Estimated GFR calculated using the 2009 CKD_EPI creatinine equation. Calcium, Total, P 8.7 8.6 - 10.0 mg/dL 03/12/2021 6:07 PM OFFICE SUPPORT ASSISTANT MKTO Glucose, P 190 (H) 70 - 140 mg/dL 03/12/2021 6:07 PM OFFICE SUPPORT ASSISTANT M KTO Protein, Total, P 5.5 (L) 6.3 - 7.9 g/dL 03/12/2021 6:07 P M OFFICE SUPPORT ASSISTANT MKTO Albumin, P 3.4 (L) 3.5 - 5.0 g/dL 03/12/2021 6:07 PM OFFICE SUPPORT ASSISTANT M KTO Aspartate Aminotransferase 66 (H) 8 - 43 U/L 03/12/2021 6 :07 PM OFFICE SUPPORT ASSISTANT MKTO (AST), P Alkaline Phosphatase, P 97 35 - 104 U/L 03/12/2021 6: 07 PM OFFICE SUPPORT ASSISTANT MKTO Alanine Aminotransferase 16 7 - 45 U/L 03/12/2021 6:0 7 PM OFFICE SUPPORT ASSISTANT MKTO (ALT), P Bilirubin, Total, P 6.0 (H) <=1.2 mg/dL 03/12/2021 6:07 PM OFFICE SUPPORT ASSISTANT MKTO Specimen Anatomical Collection Method Collection Time Receive d Time (Source) Location / / Volume Laterality Blood (Blood, 03/12/2021 5:35 PM 03/12/20 5:46 Venous) OFFICE SUPPORT ASSISTANT PM OFFICE SUPPORT ASSISTANT Barrera Vargas M.D. LAB BLOOD ADD-ON Performing Organization Address [facility] Phon e Number [address] [phone] [place] [address] Bacterial Culture, Aerobic + Susc (03/12/2021 3:46 PM OFFICE SUPPORT ASSISTANT) [facility] gist Method Time Signature Bacterial No growth 03/17/2021 MKTO Culture, after 5 7:38 AM OFFICE SUPPORT ASSISTANT Aerobic + Susc days of incubation. Specimen Anatomical Collection Method Collection Time Receive d Time (Source) Location / / Volume Laterality Fluid 03/12/2021 3:46 PM 3:46 (Peritoneal OFFICE SUPPORT ASSISTANT PM OFFICE SUPPORT ASSISTANT Fluid) Comment: Specimen Source Site: Fluid Sera Morgan P.A.-C. LAB MICROBIOLOGY - GENERAL O RDERABLES Performing Organization Address City/[facility] Phon e Number [address] [address] [place] [address] Bacterial Culture, Anaerobic + Susc (03/12/2021 3:46 PM OFFICE SUPPORT ASSISTANT) [facility] Method Time Signature Bacterial No growth 03/19/2021 MKTO Culture, after 7 8:26 AM OFFICE SUPPORT ASSISTANT Anaerobic days of incubation. Specimen Anatomical Collection Method Collection Time Receive d Time (Source) Location / / Volume Laterality Fluid 03/12/2021 3:46 PM 1 3:46 (Peritoneal OFFICE SUPPORT ASSISTANT PM OFFICE SUPPORT ASSISTANT Fluid) Comment: Specimen Source Site: Fluid Sera Morgan P.A.-C. LAB MICROBIOLOGY - GENERAL O JOSE Performing Organization Address City/[facility] Phon e Number [facility]- [address] [place] [phone] [facility] [place] [phone] System [address] Gram Stain (03/12/2021 3:46 PM OFFICE SUPPORT ASSISTANT) [facility] Method Time Signature Gram Stain No organisms seen. 03/12/2021 MKTO White blood cells present. 6:22 PM OFFICE SUPPORT ASSISTANT Stain performed on concentrated cytospin preparation. Specimen Anatomical Collection Method Collection Time Receive d Time (Source) Location / / Volume Laterality Fluid 03/12/2021 3:46 PM 1 3:46 (Peritoneal OFFICE SUPPORT ASSISTANT PM OFFICE SUPPORT ASSISTANT Fluid) Comment: Specimen Source Site: Fluid Sera Morgan P.A.-C. LAB MICROBIOLOGY - GENERAL O JOSE Performing Organization Address City/[facility] Phon e Number [address] [address] [facility] [place] [phone] System [address] Protein, Total, Body Fluid (03/12/2021 3:46 PM OFFICE SUPPORT ASSISTANT) P athologist Signature Protein, 1.0 See Comment 03/14/2021 DTL Total, BF g/dL 10:40 AM OFFICE SUPPORT ASSISTANT Comment: ----ADDITIONAL INFORMATION---- A pleural fluid total [...] ical findings. All other fluids refer to www.[employer].com for further inter pretive information. This test has been modified from the director of retail merchandising's instructions. Its perform ance characteristics were determined by [facility] in a manner consistent with CLIA require ments. This test has not been cleared or approv ed by the U.S. Food and Drug Administration. Fluid Type, Protein, Total PERITONEAL 03/14/2021 1 0:06 AM OFFICE SUPPORT ASSISTANT DTL Specimen Anatomical Collection Method Collection Time Receive d Time (Source) Location / / Volume Laterality Fluid 03/12/2021 3:46 PM 1 9:49 (Peritoneal OFFICE SUPPORT ASSISTANT AM OFFICE SUPPORT ASSISTANT Fluid) Sera Morgan P.A.-C. LAB BODY FLUIDS AND STOOLS O RDERABLES Performing Organization Address City/State/ZIP Code Phon e Number [facility] - [address] [place] [phone] [facility] [place] [address] Laboratories-[address] Cell Count and Differential, Body Fluid (03/12/2021 3:46 PM OFFICE SUPPORT ASSISTANT) [facility] gist Method Time Signature Fluid Type Peritoneal/ 03/12/2021 MKTO Paracentesi 4:30 PM OFFICE SUPPORT ASSISTANT s Gross Serous 03/12/2021 MKTO Appearance 4:33 PM OFFICE SUPPORT ASSISTANT Total Nucleated 53 /mcL 03/12/2021 MKTO Cells 4:33 PM OFFICE SUPPORT ASSISTANT Comment: ----REFERENCE VALUE---- Synovial: <150 Peritoneal: <500 Pleural: <500 Pericardial: <500 ----ADDITIONAL INFORMATION---- This test has been modified from the man ufacturer's instructions. Its performance characteri stics were determined by [facility] in a manner co nsistent with CLIA requirements. This test has not bee n cleared or approved by the U.S. Food and Drug Admin istration. Lymphocytes 31 Synovial: <75% % 03/12/2021 5:20 PM CS T MKTO Monocytes/Macrophages 63 Synovial: <70% % 03/12/2021 5:20 PM OFFICE SUPPORT ASSISTANT MKTO Other Cells 6 % 03/12/2021 5:20 PM OFFICE SUPPORT ASSISTANT MKTO Comment: ----REFERENCE VALUE---- The reference range and other method per formance specifications have not been established for this body fluid. The test result must be integrate d into the clinical context for interpretation. Other Cells Are: Mesothelial cells 03/12/2021 5:20 PM OFFICE SUPPORT ASSISTANT MKTO Comment SeeComment 03/12/2021 4:33 PM OFFICE SUPPORT ASSISTANT MKTO Comment: will be reviewed py path. Reviewed by: Dr. Fox 03/13/2021 8:07 AM OFFICE SUPPORT ASSISTANT MKTO Comment: REVISED RESULTS ----PREVIOUSLY REPORTED ---- DNR, Flagged as: Normal (Reported 03/12/2021 17:20) Specimen Anatomical Collection Method Collection Time Receive d Time (Source) Location / / Volume Laterality Fluid 03/12/2021 3:46 PM 3:46 (Peritoneal OFFICE SUPPORT ASSISTANT PM OFFICE SUPPORT ASSISTANT Fluid) Sera Morgan P.A.-C. LAB BODY FLUIDS AND STOOLS O RDERABLES Performing Organization Address City/State/ZIP Code Phon e Number [facility]- [address] [place] [address] [place] [address] [address] Albumin, Body Fluid (03/12/2021 3:46 PM OFFICE SUPPORT ASSISTANT) P athologist Signature Albumin BF 0.7 See Comment 03/14/2021 DTL g/dL 10:40 AM OFFICE SUPPORT ASSISTANT Comment: ----ADDITIONAL INFORMATION---- Peritoneal fluid albumin is used to calc ulate the serum-ascites albumin gradient (SAAG). V alues greater than or equal to 1.1 g/dL suggest portal hypertension. Pleural fluid albumin may be used to ada culate a serum-effusion albumin gradient. Values greater than 1.2 g/dL are most consistent with a noriega sudative process. ?? All other fluids refer to [email or web address].com for further interpretive information. This t est has been modified from the director of retail merchandising's instruc tions. Its performance characteristics were determi foreign by [facility] in a manner consistent with CLIA require ments. This test has not been cleared or approved by the U.S. Food and Drug Administration. Fluid Type, Albumin PERITONEAL 03/14/2021 10:06 AM OFFICE SUPPORT ASSISTANT DTL Specimen Anatomical Collection Method Collection Time Receive d Time (Source) Location / / Volume Laterality Fluid 03/12/2021 3:46 PM 9:49 (Peritoneal OFFICE SUPPORT ASSISTANT AM OFFICE SUPPORT ASSISTANT Fluid) Sera Morgan P.A.-C. LAB BODY FLUIDS AND STOOLS O RDERABLES Performing Organization Address City/[facility]/ZIP [facility] Phon e Number [facility] - [address] [place], [place] [address] [facility] [place] [address] Laboratories-[facility] [place] [address] [id number] (03/12/2021 2:57 PM OFFICE SUPPORT ASSISTANT) athologist Signature [id number] 170 100 - 190 03/14/2021 [facility] psin, S mg/dL 10:09 AM OFFICE SUPPORT ASSISTANT Specimen Anatomical Collection Method Collection Time Receive d Time (Source) Location / / Volume Laterality Blood (Blood, 03/12/2021 2:57 PM 03/14/20 7:05 Venous) OFFICE SUPPORT ASSISTANT AM OFFICE SUPPORT ASSISTANT Sera Morgna P.A.-C. LAB BLOOD ADD-ON Performing Organization Address City/[facility] Phon e Number [facility] [address] [place], [place] [address] [facility] [place] [address] Laboratory Medicine and Pathology [address] [place] (ABNORMAL) Ceruloplasmin (03/12/2021 2:57 PM OFFICE SUPPORT ASSISTANT) athologist Signature Ceruloplasmin, 16.5 (L) 20.0 - 03/13/2021 DTL S 51.0 mg/dL 10:48 AM OFFICE SUPPORT ASSISTANT Comment: A low concentration of ceruloplasmin in [...] at or the on-line test catalog at [employer] for m ore information. Specimen Anatomical Collection Method Collection Time Receive d Time (Source) Location / / Volume Laterality Blood 03/12/2021 2:57 PM 1 8:43 OFFICE SUPPORT ASSISTANT AM OFFICE SUPPORT ASSISTANT Barrera Vargas M.D. LAB BLOOD ADD-ON Performing Organization Address City/[facility]/ZIP Code Phon e Number [facility] LABORATORIES - [address] [place], [place] [address] [place] [address] Laboratories-[facility] [place] 200 [facility] Autoimmune Liver Disease Panel (03/12/2021 2:57 PM OFFICE SUPPORT ASSISTANT) Analysis Performed At Patho logist Time Signature Mitochondrial Ab, <0.1 <0.1 03/13/2021 [facility] M2, S (Negative) 2:19 PM OFFICE SUPPORT ASSISTANT U Antinuclear Ab, S 0.2 <=1.0 03/13/2021 [facility] (Negative) 12:55 PM OFFICE SUPPORT ASSISTANT U Comment: ----ADDITIONAL INFORMATION---- Method: Enzyme-linked immunoassay using HEp-2 nuclear extract supplemented with purified antig ens. Smooth Muscle Ab Screen, S Negative Negative 03/13/2021 12 :11 PM OFFICE SUPPORT ASSISTANT [facility] Comment: Negative: No further testing will be per formed ----ADDITIONAL INFORMATION---- This test was developed and its performa nce characteristics determined by [facility] in a manner consistent with CLIA requirements. This test has not been cleared or approved by the U.[place]. [place] d and Drug Administration. Specimen Anatomical Collection Method Collection Time Receive d Time (Source) Location / / Volume Laterality Blood 03/12/2021 2:57 PM 1 7:28 OFFICE SUPPORT ASSISTANT AM OFFICE SUPPORT ASSISTANT Barrera Vargas M.D. LAB BLOOD ADD-ON Performing Organization Address City/State/ZIP Code Phon e Number [facility] [address] [place], [place] [address] [facility] [place] [address] Laboratory Medicine and Pathology [address] [place] (ABNORMAL) Glucose, POCT (03/12/2021 2:06 PM OFFICE SUPPORT ASSISTANT) P athologist Signature Glucose, POCT, 155 (H) 70 - 140 03/12/2021 ANN B mg/dL 2:06 PM OFFICE SUPPORT ASSISTANT Specimen Anatomical Collection Method Collection Time Receive d Time (Source) Location / / Volume Laterality Blood 03/12/2021 2:06 PM 2:39 OFFICE SUPPORT ASSISTANT PM OFFICE SUPPORT ASSISTANT Generic Rals LAB POCT ORDERABLES-MANUAL Performing Organization Address City/State/ZIP Code Phon e Number [facility]- [address] [place] [address] [place] [address] System in [place] [address] [facility] CT Abdomen Pelvis with IV Contrast (03/12/2021 1:50 PM OFFICE SUPPORT ASSISTANT) Anatomical Region Laterality Modality Abdomen, Pelvis, Abdominal RST LOS, Abdominal ARZ LOS, N/A Computed Tomography Abdominal FLA LOS Specimen (Source) Anatomical Collection Method Collection Time Re ceived Time Location / / Volume Laterality 03/12/2021 2:04 PM OFFICE SUPPORT ASSISTANT Impressions 03/12/2021 2:37 PM OFFICE SUPPORT ASSISTANT 1. ??Partial atelectasis of the bilatera l [...] anterior fifth rib. Narrative 03/12/2021 2:37 PM OFFICE SUPPORT ASSISTANT EXAM: CT CHEST WITH IV CONTRAST, CT [...] fracture of right anterior fifth rib. Barrera COOLG CT PROCEDURES CT Chest with IV Contrast (03/12/2021 1:50 PM OFFICE SUPPORT ASSISTANT) Anatomical Region Laterality Modality Chest, Thoracic RST LOS, Thoracic ARZ LOS, Thoracic N/A Computed Tomography ARZ LOS, Thoracic FLA LOS Specimen (Source) Anatomical Collection Method Collection Time Re ceived Time Location / / Volume Laterality 03/12/2021 2:04 PM OFFICE SUPPORT ASSISTANT Impressions 03/12/2021 2:37 PM OFFICE SUPPORT ASSISTANT 1. ??Partial atelectasis of the bilatera l [...] anterior fifth rib. Narrative 03/12/2021 2:37 PM OFFICE SUPPORT ASSISTANT EXAM: CT CHEST WITH IV CONTRAST, CT [...] Head without IV Contrast (03/12/2021 1:49 PM OFFICE SUPPORT ASSISTANT) Anatomical Region Laterality Modality Head, Neuroradiology RST [facility], Neuroradiology ARZ [facility], N/A Computed Tomography Neuroradiology FLA [facility] Specimen (Source) Anatomical Collection Method Collection Time Re ceived Time Location / / Volume Laterality 03/12/2021 1:50 PM OFFICE SUPPORT ASSISTANT Impressions 03/12/2021 1:52 PM OFFICE SUPPORT ASSISTANT No acute CT abnormalities are demonstrated. Narrative 03/12/2021 1:52 PM OFFICE SUPPORT ASSISTANT EXAM: CT HEAD WITHOUT IV CONTRAST COMPARISON: [...] Barrera Vargas M.D. IMG CT PROCEDURES Cytology Non-PROCESS ENG (03/12/2021 1:11 PM OFFICE SUPPORT ASSISTANT) Component Value Ref Test Analysis Performed At Patholo gist Range Method Time Signature /14/2021 HKCY 12:37 PM OFFICE SUPPORT ASSISTANT Report Lloyd Alfaro MD 03/14/2021 HK electronically 12:37 PM signed by OFFICE SUPPORT ASSISTANT I verify that I have examined all relevant slides/materials for the specimen(s) and rendered or confirmed the diagnosis. Gross Description 800 ml cloudy brownish red fluid received. ??60 m l fixed 03/14/2021 [facility] with 70% ETOH 03-12-21 @ 15:30 12:37 PM 2 slides and cell block prepared. OFFICE SUPPORT ASSISTANT Source A. Pleural, 03/14/2021 HKCY Right, fluid 12:37 PM OFFICE SUPPORT ASSISTANT Interpretation A. Pleural, Right, fluid (smears/cell block): Negati ve for 03/14/2021 HK malignancy. 12:37 PM OFFICE SUPPORT ASSISTANT Specimen Anatomical Collection Method Collection Time Receive d Time (Source) Location / / Volume Laterality Varies 03/12/2021 1:11 PM 6:20 OFFICE SUPPORT ASSISTANT AM OFFICE SUPPORT ASSISTANT Narrative This result has an attachment that is no t available. Barrera Vargas M.D. LAB SURG PATH ORDERABLES Performing Organization Address City/State/ZIP Code Phon e Number [facility]- [facility] [place] [address] [facility] [address] [facility] Cytology [address] [place] [address] ECG 12 Lead (03/12/2021 1:01 PM OFFICE SUPPORT ASSISTANT) P athologist Signature Ventricular Rate 84 BPM MUSE ECG/Min IA Interval 166 ms MUSE QRSD Interval 92 ms MUSE QT Interval 436 ms MUSE QTC Interval 516 ms MUSE P [place] 62 degrees MUSE R [place] 43 degrees MUSE T Wave [place] -20 degrees MUSE Specimen Anatomical Collection Method Collection Time Receive d Time (Source) Location / / Volume Laterality 03/12/2021 1:01 PM 1:24 OFFICE SUPPORT ASSISTANT PM OFFICE SUPPORT ASSISTANT Impressions MUSE - 03/12/2021 1:21 PM OFFICE SUPPORT ASSISTANT Normal sinus rhythm ST and T wave [...] Chest Portable 1 View (03/12/2021 1:00 PM OFFICE SUPPORT ASSISTANT) Anatomical Region Laterality Modality Chest, Thoracic RST LOS, Thoracic ARZ LOS, Thoracic N/A Digital Radiography FLA LOS Specimen (Source) Anatomical Collection Method Collection Time Re ceived Time Location / / Volume Laterality 03/12/2021 1:12 PM OFFICE SUPPORT ASSISTANT Impressions 03/12/2021 1:14 PM OFFICE SUPPORT ASSISTANT 1. New endotracheal tube with tip positioned [...] acute airspace disease. Narrative 03/12/2021 1:14 PM OFFICE SUPPORT ASSISTANT EXAM: DX CHEST PORTABLE 1 VIEW COMPARISON: [...] P ROCEDURES Testing Location (03/12/2021 12:59 PM OFFICE SUPPORT ASSISTANT) athologist Signature Testing [facility] DEFAULT 03/12/2021 MKTO Location 1:05 PM OFFICE SUPPORT ASSISTANT Specimen Anatomical Collection Method Collection Time Receive d Time (Source) Location / / Volume Laterality Blood 03/12/2021 12:59 03/12/2021 1:05 PM OFFICE SUPPORT ASSISTANT PM OFFICE SUPPORT ASSISTANT Barrera Vargas M.D. LAB BLOOD BANK TEST YO ELISE [facility] Organization Address City/State/ZIP Code Phon e Number [facility]- [address] [place] [phone] [place] [address] (ABNORMAL) Bilirubin, Direct (03/12/2021 12:59 PM OFFICE SUPPORT ASSISTANT) athologist Signature Bilirubin, 2.7 (H) 0.0 - 0.3 03/12/2021 MKTO Direct, P mg/dL 1:40 PM OFFICE SUPPORT ASSISTANT Specimen Anatomical Collection Method Collection Time Receive d Time (Source) Location / / Volume Laterality Blood (Blood, 03/12/2021 12:59 03/12/2021 1:08 Venous) PM OFFICE SUPPORT ASSISTANT PM OFFICE SUPPORT ASSISTANT Sera Morgan P.A.-C. LAB BLOOD ADD-ON Performing Organization Address City/[facility] Hospital/ZIP Code Phon e Number [facility]- [address] [place] [phone] [place] [address] Patient Status (03/12/2021 12:59 PM OFFICE SUPPORT ASSISTANT) P athologist Signature FIO2 0.50 0.21=AIR 03/12/2021 1:09 MKTO PM OFFICE SUPPORT ASSISTANT Specimen Anatomical Collection Method Collection Time Receive d Time (Source) Location / / Volume Laterality Blood 03/12/2021 12:59 03/12/2021 1:04 PM OFFICE SUPPORT ASSISTANT PM OFFICE SUPPORT ASSISTANT Barrera Vargas M.D. LAB BLOOD NON ADD-ON Performing Organization Address City/[facility] Hospital/ZIP Code Phon e Number [facility]- [address] [place] [phone] [place] [address] Lactate, B (03/12/2021 12:59 PM OFFICE SUPPORT ASSISTANT) P athologist Signature Lactate, B 2.2 0.5 - 2.2 03/12/2021 MKTO mmol/L 1:09 PM OFFICE SUPPORT ASSISTANT Specimen Anatomical Collection Method Collection Time Receive d Time (Source) Location / / Volume Laterality Blood 03/12/2021 12:59 03/12/2021 1:05 PM OFFICE SUPPORT ASSISTANT PM OFFICE SUPPORT ASSISTANT Barrera Vargas M.D. LAB BLOOD NON ADD-ON Performing Organization Address City/[facility] Hospital/ZIP Code Phon e Number [facility]- [address] [place] [address] [place] [address] (ABNORMAL) Blood Gas with Coox, Arterial (03/12/2021 12:59 PM OFFICE SUPPORT ASSISTANT) P athologist Signature P O2 102 83 - 108 03/12/2021 MKTO mm Hg 1:09 PM OFFICE SUPPORT ASSISTANT P CO2 31 (L) 32 - 45 mm 03/12/2021 [facility] Hg 1:09 PM OFFICE SUPPORT ASSISTANT pH 7.47 (H) 7.35 - 03/12/2021 MKTO 7.45 pH 1:09 PM OFFICE SUPPORT ASSISTANT Base Excess -1 -2 - 3 03/12/2021 MKTO mmol/L 1:09 PM OFFICE SUPPORT ASSISTANT HCO3 23 22 - 26 03/12/2021 MK[facility] mmol/L 1:09 PM OFFICE SUPPORT ASSISTANT Hemoglobin, B 6.5 (L) 11.6 - 03/12/2021 MKTO 15.0 g/dL 1:09 PM OFFICE SUPPORT ASSISTANT O2Hb 96.9 94.0 - 03/12/2021 MKTO 98.0 % 1:09 PM OFFICE SUPPORT ASSISTANT COHb 1.8 <3.0 % 03/12/2021 MKTO 1:09 PM OFFICE SUPPORT ASSISTANT MetHb 0.0 <1.5 % 03/12/2021 MKTO 1:09 PM OFFICE SUPPORT ASSISTANT CtO2 9.1 (L) 18.0 - 03/12/2021 MKTO 21.0 vol % 1:09 PM OFFICE SUPPORT ASSISTANT Arterial Art Line 03/12/2021 MKTO Sample Site 1:09 PM OFFICE SUPPORT ASSISTANT Comment: Michael's test not done. Specimen Anatomical Collection Method Collection Time Receive d Time (Source) Location / / Volume Laterality Blood (Blood, 03/12/2021 12:59 03/12/2021 1:04 Arterial) PM OFFICE SUPPORT ASSISTANT PM OFFICE SUPPORT ASSISTANT Barrera Vargas M.D. LAB BLOOD NON ADD-ON Performing Organization Address City/State/ZIP Code Phon e Number [facility]- [address] [place] [phone] [place] [address] System in [place] [address] [place] [address] Type and Screen (with reflex Antibody ID) (03/12/2021 12:59 PM OFFICE SUPPORT ASSISTANT) Patholo gist Method Time Signature ABO Group B 03/12/2021 MKTO 1:45 PM OFFICE SUPPORT ASSISTANT Rh Type POS 03/12/2021 MKTO 1:45 PM OFFICE SUPPORT ASSISTANT Antibody Screen NEG 03/12/2021 MKTO 1:45 PM OFFICE SUPPORT ASSISTANT Type & Screen 03/15/2021 03/12/2021 MKTO Expiration 23:59 1:45 PM OFFICE SUPPORT ASSISTANT ELXM Eligible Y 03/12/2021 MKTO 1:45 PM OFFICE SUPPORT ASSISTANT Specimen Anatomical Collection Method Collection Time Receive d Time (Source) Location / / Volume Laterality Blood (Blood, 03/12/2021 12:59 03/12/2021 1:05 Venous) PM OFFICE SUPPORT ASSISTANT PM OFFICE SUPPORT ASSISTANT Barrera Vargas M.D. LAB BLOOD BANK TEST ORDE RABEAGLE Performing Organization Address City/[place] Hospital/ZIP [facility] [place] e Number [facility]- [address] [place] [address] [place] [address] System [address] LD (Lactate Dehydrogenase) (03/12/2021 12:59 PM OFFICE SUPPORT ASSISTANT) Analysis Performed At Patho logist Time Signature Lactate 218 122 - 222 03/12/2021 MKTO Dehydrogenase U/L 1:39 PM OFFICE SUPPORT ASSISTANT (LD), P Specimen Anatomical Collection Method Collection Time Receive d Time (Source) Location / / Volume Laterality Blood (Blood, 03/12/2021 12:59 03/12/2021 1:26 Venous) PM OFFICE SUPPORT ASSISTANT PM OFFICE SUPPORT ASSISTANT Barrera Vargas M.D. LAB BLOOD NON ADD-ON Performing Organization Address [facility] Phon e Number [facility]- [address] [place] [address] [place] [address] System in [address] Cytology Non-PROCESS ENG (03/12/2021 12:39 PM OFFICE SUPPORT ASSISTANT) Component Value Ref Test Analysis Performed At Patholo gist Range Method Time Signature 03/14/2021 [facility] 12:36 PM OFFICE SUPPORT ASSISTANT Report Lloyd Alfaro MD 03/14/2021 [facility] electronically 12:36 PM signed by OFFICE SUPPORT ASSISTANT I verify that I have examined all relevant slides/materials for the specimen(s) and rendered or confirmed the diagnosis. Gross Description 925 ml of cloudy hinson yellow fluid received. ?? Specimen 03/14/2021 [facility] fixed @ 2:00 pm on 03-12-2021. 12:36 PM 2 slides and cell block prepared. OFFICE SUPPORT ASSISTANT Collection Paracentesis 03/14/2021 [facility] Procedure 12:36 PM OFFICE SUPPORT ASSISTANT Source A. Peritoneal, 03/14/2021 [facility] fluid 12:36 PM OFFICE SUPPORT ASSISTANT Interpretation A. Peritoneal, fluid (smears/cell block): Negative f or 03/14/2021 [facility] malignancy. 12:36 PM OFFICE SUPPORT ASSISTANT Specimen Anatomical Collection Method Collection Time Receive d Time (Source) Location / / Volume Laterality Varies 03/12/2021 12:39 03/12/2021 2:00 PM OFFICE SUPPORT ASSISTANT PM OFFICE SUPPORT ASSISTANT Narrative This result has an attachment that is no t available. Barrera Vargas M.D. LAB SURG PATH ORDERABLES Performing Organization Address City/Va Hospital/ZIP Code Phon e Number [facility]- [address] [place] [address] [place] [address] System [place] [address] [facility] Lactate Dehydrogenase (LD), Body Fluid (03/12/2021 12:35 PM OFFICE SUPPORT ASSISTANT) [facility] Method Time Signature Lactate 84 See Comment 03/13/2021 DTL Dehydrogenase U/L 11:50 AM OFFICE SUPPORT ASSISTANT (LD), BF Comment: ----ADDITIONAL INFORMATION---- Pleural fluid [...] clinical findings. All other fluids refer to [email or web address] for further interpretive information. This test has been modified from the ashby ufacturer's instructions. Its performance characteristics were det ermined by [facility] in a manner consistent with CLIA requirements . This test has not been cleared or approved by the U.S. Food and Drug Administration. Fluid Type, Lactate Pleural Fluid, Right 1 10:15 AM OFFICE SUPPORT ASSISTANT DTL Dehydrogenase Specimen Anatomical Collection Method Collection Time Receive d Time (Source) Location / / Volume Laterality Fluid (Pleural 03/12/2021 12:35 1 8:56 Fluid, Right) PM OFFICE SUPPORT ASSISTANT AM OFFICE SUPPORT ASSISTANT Barrera Vargas M.D. LAB BODY FLUIDS AND STOO LS ORDERABLES Performing Organization Address City/Va Hospital/ZIP Code Phon e Number [facility] - [address] [place], [place] [address] [facility] [place] [address] [facility] [place] [address] [facility] Protein, Total, Body Fluid (03/12/2021 12:35 PM OFFICE SUPPORT ASSISTANT) P athologist Signature Protein, 1.5 See Comment 03/13/2021 DTL Total, BF g/dL 11:50 AM OFFICE SUPPORT ASSISTANT Comment: ----ADDITIONAL INFORMATION---- A pleural fluid total [...] ical findings. All other fluids refer to [email or web address] for further inter pretive information. This test has been modified from the director of retail merchandising's instructions. Its perform ance characteristics were determined by [facility] in a manner consistent with CLIA require ments. This test has not been cleared or approv ed by the U.S. Food and Drug Administration. Fluid Type, Protein, Total Pleural Fluid, Right 10:15 AM OFFICE SUPPORT ASSISTANT DTL Specimen Anatomical Collection Method Collection Time Receive d Time (Source) Location / / Volume Laterality Fluid (Pleural 03/12/2021 12:35 8:56 Fluid, Right) PM OFFICE SUPPORT ASSISTANT AM OFFICE SUPPORT ASSISTANT Barrera Vargas M.D. LAB BODY FLUIDS AND STOO LS ORDERABLES Performing Organization Address City/State/ZIP Code Phon e Number [facility] - [address] [place], [place] [address] [facility] [place] [address] [facility] [place] [address] [facility] Glucose, Body Fluid (03/12/2021 12:34 PM OFFICE SUPPORT ASSISTANT) athologist Signature Glucose, BF 124 See Comment 03/13/2021 DTL mg/dL 11:44 AM OFFICE SUPPORT ASSISTANT Comment: ----ADDITIONAL INFORMATION---- Body fluid glucose concentrations [...] of infection. All other fluids refer to [email or web address] for further inter pretive information. This test has been modified from the man ufacturer's instructions. Its performance characteri stics were determined by [facility] in a manner co nsistent with CLIA requirements. This test has not been norah ared or approved by the U.S. Food and Drug Administration. Fluid Type, Glucose Pleural Fluid, Right 10:14 AM OFFICE SUPPORT ASSISTANT DTL Specimen Anatomical Collection Method Collection Time Receive d Time (Source) Location / / Volume Laterality Fluid (Pleural 03/12/2021 12:34 1 8:55 Fluid, Right) PM OFFICE SUPPORT ASSISTANT AM OFFICE SUPPORT ASSISTANT Barrera Vargas M.D. LAB BODY FLUIDS AND STOO LS ORDERABLES Performing Organization Address City/State/ZIP Code Phon e Number [facility] - [address] [place], [place] [address] [facility] [place] [address] [facility] [place] 200 [facility] Gram Stain (03/12/2021 12:34 PM OFFICE SUPPORT ASSISTANT) [facility] gist Method Time Signature Gram Stain No organisms seen. 03/12/2021 MKTO White blood cells present. 4:46 PM OFFICE SUPPORT ASSISTANT Stain performed on concentrated cytospin preparation. Specimen Anatomical Collection Method Collection Time Receive d Time (Source) Location / / Volume Laterality Fluid (Pleural 03/12/2021 12:34 1 1:08 Fluid, Right) PM OFFICE SUPPORT ASSISTANT PM OFFICE SUPPORT ASSISTANT Comment: Specimen Source Site: Fluid Barrera Vargas M.D. LAB MICROBIOLOGY - GENER AL ORDERABLES Performing Organization Address City/State/ZIP Code Phon e Number [facility]- [address] [place] [address] [place] [address] Cell Count and Differential, Body Fluid (03/12/2021 12:34 PM OFFICE SUPPORT ASSISTANT) [facility] Method Time Signature Fluid Type Pleural/Thor 03/12/2021 MKTO acentesis 2:12 PM OFFICE SUPPORT ASSISTANT Gross Slightly 03/12/2021 MKTO Appearance Cloudy 2:13 PM OFFICE SUPPORT ASSISTANT Total 350 /mcL 03/12/2021 MKTO Nucleated 2:13 PM OFFICE SUPPORT ASSISTANT Cells Comment: ----REFERENCE VALUE---- Synovial: <150 Peritoneal: <500 Pleural: <500 Pericardial: <500 ----ADDITIONAL INFORMATION---- This test has been modified from the [facility] hospitalacturer's instructions. Its performance characteri stics were determined by [facility] in a manner co nsistent with CLIA requirements. This test has not bee n cleared or approved by the U.S. Food and Drug Admin istration. Neutrophils 4 % 03/12/2021 2:47 PM OFFICE SUPPORT ASSISTANT MKTO Comment: ----REFERENCE VALUE---- Synovial: <25% Peritoneal: <25% Pleural: <25% Pericardial: <25% Lymphocytes 13 Synovial: <75% % 03/12/2021 2:47 PM CS T MKTO Monocytes/Macrophages 76 Synovial: <70% % 03/12/2021 2:47 PM OFFICE SUPPORT ASSISTANT MKTO Other Cells 7 % 03/12/2021 2:47 PM OFFICE SUPPORT ASSISTANT MKTO Comment: ----REFERENCE VALUE---- The reference range and other method per formance specifications have not been established for this body fluid. The test result must be integrate d into the clinical context for interpretation. Other Cells Are: Mesothelial cells 03/12/2021 2:47 PM OFFICE SUPPORT ASSISTANT MKTO Reviewed by: Dr. Joshua Castrejon 03/12/2021 2:47 PM CS T MKTO Specimen Anatomical Collection Method Collection Time Receive d Time (Source) Location / / Volume Laterality Fluid (Pleural 03/12/2021 12:34 1:08 Fluid, Right) PM OFFICE SUPPORT ASSISTANT PM OFFICE SUPPORT ASSISTANT Barrera Vargas M.D. LAB BODY FLUIDS AND STOO LS ORDERABLES Performing Organization Address City/State/ZIP Code Phon e Number [facility]- [address] [place] [address] [place] [address] Bacterial Culture, Anaerobic + Susc (03/12/2021 12:34 PM OFFICE SUPPORT ASSISTANT) [facility] Method Time Signature Bacterial No growth 03/19/2021 MKTO Culture, after 7 8:26 AM OFFICE SUPPORT ASSISTANT Anaerobic days of incubation. Specimen Anatomical Collection Method Collection Time Receive d Time (Source) Location / / Volume Laterality Fluid (Pleural 03/12/2021 12:34 1 1:08 Fluid, Right) PM OFFICE SUPPORT ASSISTANT PM OFFICE SUPPORT ASSISTANT Comment: Specimen Source Site: Fluid Barrera Vargas M.D. LAB MICROBIOLOGY - GENER AL ORDERABLES Performing Organization Address City/[facility] Hospital/[facility] Phon e Number [facility]- [address] [place] [address] [place] [address] Bacterial Culture, Aerobic + Susc (03/12/2021 12:34 PM OFFICE SUPPORT ASSISTANT) [facility] Method Time Signature Bacterial No growth 03/17/2021 MKTO Culture, after 5 7:38 AM OFFICE SUPPORT ASSISTANT Aerobic + Susc days of incubation. Specimen Anatomical Collection Method Collection Time Receive d Time (Source) Location / / Volume Laterality Fluid (Pleural 03/12/2021 12:34 1 1:08 Fluid, Right) PM OFFICE SUPPORT ASSISTANT PM OFFICE SUPPORT ASSISTANT Comment: Specimen Source Site: Fluid Brarera Vargas M.D. LAB MICROBIOLOGY - GENER AL ORDERABLES Performing Organization Address City/[facility] Hospital/[facility] Phon e Number [facility]- [address] [place] [address] [place] [address] Influenza A/B and RSV, PCR, Varies (03/12/2021 11:00 AM OFFICE SUPPORT ASSISTANT) [facility] Method Time Signature Influenza A/B Swab, 03/13/2021 DTL and RSV, Nasopharynx 11:55 AM Source OFFICE SUPPORT ASSISTANT Influenza A, Undetected Undetected 03/13/2021 DTL PCR 11:55 AM OFFICE SUPPORT ASSISTANT Comment: Influenza A RNA absent. Influenza B, PCR Undetected Undetected 03/13/2021 11:[address] DTL Comment: Influenza B RNA absent. Respiratory Syncytial Virus, Undetected Undetected 11:55 AM OFFICE SUPPORT ASSISTANT DTL PCR Comment: RSV RNA absent. ----ADDITIONAL INFORMATION---- This test has been modified from the man ufsusir's instructions. Its performance characteristics were determi foreign by [facility] in a manner consistent with CLIA requirements. This test has not been cleared or approved by the U.S. Food and Drug Administration . Specimen Anatomical Collection Method Collection Time Receive d Time (Source) Location / / Volume Laterality Varies 03/12/2021 11:00 03/13/2021 7:12 (Nasopharynx) AM OFFICE SUPPORT ASSISTANT AM OFFICE SUPPORT ASSISTANT Nunu Sanches P.A.-C. M.S. LAB MICROBIOLOGY - [facility] ORDERABLES Performing Organization Address City/State/ZIP Code Phon e Number [facility] - [address] [place] [address] [facility] [place] [address] [facility] [place] [address] [facility] SARS Coronavirus-2 RNA, V Symptomatic (03/12/2021 11:00 AM OFFICE SUPPORT ASSISTANT) [facility] Method Time Signature SARS-CoV-2 Swab, 03/12/2021 MKTO Specimen Nasopharynx 7:30 PM OFFICE SUPPORT ASSISTANT Source SARS CoV-2 Undetected Undetected 03/12/2021 MKTO RNA, TMA 7:30 PM OFFICE SUPPORT ASSISTANT Comment: SARS-CoV-2 RNA absent. This result does not rule out COVID-19 in the patient, as the sensitivity of the test depends o n the timing of the specimen collection and the quality of the specim en. Result should be correlated with patient's history and clinical presentat ion. ----ADDITIONAL INFORMATION---- This molecular amplification test was pe rformed using the Aptima SARS-CoV-2 assay ([employer] on the [employer] tem under emergency use authorization (EUA) by the U.S. Food and Drug Administ ration. Fact sheets for this EUA assay can be fo und at the following links: For Healthcare Providers: https://www.fd a.gov/media/603138/download For Patients: https://www.fda.gov/media/ 333240/download Specimen Anatomical Collection Method Collection Time Receive d Time (Source) Location / / Volume Laterality Varies 03/12/2021 11:00 03/12/2021 (Nasopharynx) AM OFFICE SUPPORT ASSISTANT 11:05 AM OFFICE SUPPORT ASSISTANT Nunu Sanches P.A.-C. MSumaS. LAB MICROBIOLOGY - [facility] ORDERABLES Performing Organization Address City/State/ZIP Code Phon e Number [facility]- [facility] [place] [address] [place] [address] System in [place] [address] [facility] [place] ARTL CATH/CNULA MONITOR PERC, LDA ANE ARTERIAL LINE INSERTION (03/12/2021 10:45 AM OFFICE SUPPORT ASSISTANT) Narrative Barrera To M.D. - 2020 10:45 AM OFFICE SUPPORT ASSISTANT Barrera To M.D. ? 03/12/2021 ??6:09 PM [...] SURGICAL ORDERABLES Patient Status (03/12/2021 7:10 AM OFFICE SUPPORT ASSISTANT) P athologist Signature FIO2 0.50 0.21=AIR 03/12/2021 7:37 MKTO AM OFFICE SUPPORT ASSISTANT Specimen Anatomical Collection Method Collection Time Receive d Time (Source) Location / / Volume Laterality Blood 03/12/2021 7:10 AM 7:30 OFFICE SUPPORT ASSISTANT AM OFFICE SUPPORT ASSISTANT Nunu Sanches P.A.-C., M.S. LAB BLOOD NON ADD-ON Performing Organization Address City/State/ZIP Code Phon e Number [facility]- [address] [place] [address] [place] [address] [address] (ABNORMAL) Blood Gas with Coox, Arterial (03/12/2021 7:10 AM OFFICE SUPPORT ASSISTANT) P athologist Signature P O2 77 (L) 83 - 108 03/12/2021 MKTO mm Hg 7:37 AM OFFICE SUPPORT ASSISTANT P CO2 20 (CL) 32 - 45 mm 03/12/2021 MKTO Hg 7:37 AM OFFICE SUPPORT ASSISTANT pH 7.53 (H) 7.35 - 03/12/2021 MKTO 7.45 pH 7:37 AM OFFICE SUPPORT ASSISTANT Base Excess -5 (L) -2 - 3 03/12/2021 MKTO mmol/L 7:37 AM OFFICE SUPPORT ASSISTANT HCO3 17 (L) 22 - 26 03/12/2021 MKTO mmol/L 7:37 AM OFFICE SUPPORT ASSISTANT Hemoglobin, B 7.6 (L) 11.6 - 03/12/2021 MKTO 15.0 g/dL 7:37 AM OFFICE SUPPORT ASSISTANT O2Hb 95.2 94.0 - 03/12/2021 MKTO 98.0 % 7:37 AM OFFICE SUPPORT ASSISTANT COHb 1.6 <3.0 % 03/12/2021 MKTO 7:37 AM OFFICE SUPPORT ASSISTANT MetHb 0.0 <1.5 % 03/12/2021 MKTO 7:37 AM OFFICE SUPPORT ASSISTANT CtO2 10.3 (L) 18.0 - 03/12/2021 MKTO 21.0 vol % 7:37 AM OFFICE SUPPORT ASSISTANT Arterial R-Radial 03/12/2021 MKTO Sample Site 7:37 AM OFFICE SUPPORT ASSISTANT Specimen Anatomical Collection Method Collection Time Receive d Time (Source) Location / / Volume Laterality Blood (Blood, 03/12/2021 7:10 AM 03/12/20 7:30 Arterial) OFFICE SUPPORT ASSISTANT AM OFFICE SUPPORT ASSISTANT Nunu Sanches P.A.-C., M.S. LAB BLOOD NON ADD-ON Performing Organization Address [facility] Phon e Number [address] [place] [address] (ABNORMAL) Lactate, B (03/12/2021 7:10 AM OFFICE SUPPORT ASSISTANT) P athologist Signature Lactate, B 9.3 (H) 0.5 - 2.2 03/12/2021 MKTO mmol/L 7:38 AM OFFICE SUPPORT ASSISTANT Specimen Anatomical Collection Method Collection Time Receive d Time (Source) Location / / Volume Laterality Blood 03/12/2021 7:10 AM 7:30 OFFICE SUPPORT ASSISTANT AM OFFICE SUPPORT ASSISTANT Nunu Sanches P.A.-C., M.S. LAB BLOOD NON ADD-ON Performing Organization Address [facility] Phon e Number [address] [address] [place] [address] Bacteria / Raudel Culture, Blood #2 (03/12/2021 7:10 AM OFFICE SUPPORT ASSISTANT) Patholo gist Method Time Signature Bacteria/Adriana No growth 03/17/2021 MKTO da Culture, after 5 8:05 AM OFFICE SUPPORT ASSISTANT Blood day/s of incubation. Specimen (Source) Anatomical Collection Method Collection Time Re ceived Time Location / / Volume Laterality Blood (Blood, 03/12/2021 7:10 03/12/2021 7:31 Peripheral Draw) AM OFFICE SUPPORT ASSISTANT AM OFFICE SUPPORT ASSISTANT Comment: Specimen Source Site: Blood Nunu Sanches P.A.-C., M.S. LAB MICROBIOLOGY - GENE RAL ORDERABLES Performing Organization Address City/State/ZIP Code Phon e Number [facility]- [facility] [place] [address] [place] [address] System in [place] [address] [facility] DX Chest Portable 1 View (03/12/2021 6:24 AM OFFICE SUPPORT ASSISTANT) Anatomical Region Laterality Modality Chest, Thoracic RST LOS, Thoracic ARZ LOS, Thoracic N/A Digital Radiography FLA LOS Specimen (Source) Anatomical Collection Method Collection Time Re ceived Time Location / / Volume Laterality 03/12/2021 7:25 AM OFFICE SUPPORT ASSISTANT Impressions 03/12/2021 7:27 AM OFFICE SUPPORT ASSISTANT Large right pleural effusion and right-sided consolidation. Centrally obstructing process within bro nchus is not excluded. Narrative 03/12/2021 7:27 AM OFFICE SUPPORT ASSISTANT EXAM: DX CHEST PORTABLE 1 VIEW COMPARISON: [...] PROCEDURES (ABNORMAL) Microscopic Automated (03/12/2021 6:23 AM OFFICE SUPPORT ASSISTANT) athologist Signature White Blood Occ-3 /hpf 03/12/2021 MKTO Cells 7:18 AM OFFICE SUPPORT ASSISTANT Comment: ----REFERENCE VALUE---- Males: 0-3 Females: 0-10 Unknown: 0-10 Red Blood Cells 3-10 (A) 0 - 2 /hpf 03/12/2021 7:18 AM OFFICE SUPPORT ASSISTANT MKTO Dysmorphic Red Blood Cells <=25 <=25 % 03/12/2021 7: 18 AM OFFICE SUPPORT ASSISTANT MKTO Hyaline Casts 4-10 /lpf 03/12/2021 7:18 AM OFFICE SUPPORT ASSISTANT MKT O Squamous Cells Occ-3 /hpf 03/12/2021 7:18 AM OFFICE SUPPORT ASSISTANT MK TO Specimen Anatomical Collection Method Collection Time Receive d Time (Source) Location / / Volume Laterality Urine 03/12/2021 6:23 AM 6:47 OFFICE SUPPORT ASSISTANT AM OFFICE SUPPORT ASSISTANT Nunu Sanches P.A.-C., M.S. LAB URINE ORDERABLES Performing Organization Address [facility] Phon e Number [address] [address] [place] [address] MRSA PCR, Nasal (03/12/2021 6:23 AM OFFICE SUPPORT ASSISTANT) athologist [facility] MRSA Screen, Negative Negative 03/12/2021 MKTO Nasal by PCR 10:50 AM OFFICE SUPPORT ASSISTANT Specimen Anatomical Collection Method Collection Time Receive d Time (Source) Location / / Volume Laterality Swab (Nares) 03/12/2021 6:23 AM 6:47 OFFICE SUPPORT ASSISTANT AM OFFICE SUPPORT ASSISTANT Nunu Sanches P.A.-C., M.S. LAB MICROBIOLOGY - GENE RAL ORDERABLES Performing Organization Address [facility] Phon e Number [address] [address] [place] [address] (ABNORMAL) Urinalysis with Microscopic if Indicated (03/12/2021 6:23 AM OFFICE SUPPORT ASSISTANT) athologist Signature Source Urine, 03/12/2021 MKTO Urine, 6:56 AM OFFICE SUPPORT ASSISTANT Clean Catch Clarity Clear Clear 03/12/2021 MKTO 6:56 AM OFFICE SUPPORT ASSISTANT Color Priscilla 03/12/2021 MKTO 6:56 AM OFFICE SUPPORT ASSISTANT Comment: ----REFERENCE VALUE---- Colorless Yellow Priscilla Blood Negative Negative 03/12/2021 6:56 AM OFFICE SUPPORT ASSISTANT MKTO Nitrite Negative Negative 03/12/2021 6:56 AM OFFICE SUPPORT ASSISTANT MKTO Leukocyte Esterase Small (A) Negative 03/12/2021 6:56 AM CS T MKTO Protein Trace mg/dL 03/12/2021 6:56 AM OFFICE SUPPORT ASSISTANT MKTO Comment: ----REFERENCE VALUE---- Negative Trace Glucose Negative Negative mg/dL 03/12/2021 6:56 AM OFFICE SUPPORT ASSISTANT MK TO Ketone Trace (A) Negative mg/dL 03/12/2021 6:56 AM OFFICE SUPPORT ASSISTANT MK TO Bilirubin Moderate (A) Negative 03/12/2021 6:56 AM OFFICE SUPPORT ASSISTANT MKTO pH 6.0 5.0 - 8.0 03/12/2021 6:56 AM OFFICE SUPPORT ASSISTANT MKTO Specific [place] 1.016 1.001 - 1.035 03/12/2021 6:56 AM OFFICE SUPPORT ASSISTANT MKTO Urobilinogen 1.0 0.2 - 1.0 mg/dL 03/12/2021 6:56 AM CS T MKTO Specimen Anatomical Collection Method Collection Time Receive d Time (Source) Location / / Volume Laterality Urine (Urine, 03/12/2021 6:23 AM 03/12/20 6:47 Clean Catch) OFFICE SUPPORT ASSISTANT AM OFFICE SUPPORT ASSISTANT Nunu Sanches P.A.-C., M.S. LAB URINE ORDERABLES Performing Organization Address City/State/ZIP Code Phon e Number [facility]- [address] [place] [id number] [place] [address] [place] [address] System [address] (ABNORMAL) Drug Screen Urine (03/12/2021 6:23 AM OFFICE SUPPORT ASSISTANT) athologist Signature Amphetamines, Negative Negative 03/12/2021 MKTO U 7:18 AM OFFICE SUPPORT ASSISTANT Comment: ----ADDITIONAL INFORMATION---- Seismic Engineer's Cutoff: 500 ng/mL Barbiturates, U Negative Negative 03/12/2021 7:18 AM OFFICE SUPPORT ASSISTANT Elizabeth KTO Comment: ----ADDITIONAL INFORMATION---- Seismic Engineer's Cutoff: 200 ng/mL Benzodiazepines, U Negative Negative 03/12/2021 7:18 AM CS T MKTO Comment: ----ADDITIONAL INFORMATION---- Seismic Engineer's Cutoff: 150 ng/mL Buprenorphine, U Negative Negative 03/12/2021 7:18 AM OFFICE SUPPORT ASSISTANT MKTO Comment: ----ADDITIONAL INFORMATION---- Seismic Engineer's Cutoff: 10 ng/mL Cocaine, U Negative Negative 03/12/2021 7:18 AM OFFICE SUPPORT ASSISTANT MKTO Comment: ----ADDITIONAL INFORMATION---- Seismic Engineer's Cutoff: 150 ng/mL Methadone, U Negative Negative 03/12/2021 7:18 AM OFFICE SUPPORT ASSISTANT MKTO Comment: ----ADDITIONAL INFORMATION---- Seismic Engineer's Cutoff: 200 ng/mL Methamphetamines, U Negative Negative 03/12/2021 7:[address] MKTO Comment: ----ADDITIONAL INFORMATION---- Seismic Engineer's Cutoff: 500 ng/mL Opiates, U Negative Negative 03/12/2021 7:18 AM OFFICE SUPPORT ASSISTANT MKTO Comment: ----ADDITIONAL INFORMATION---- Seismic Engineer's Cutoff: 100 ng/mL Oxycodone, U Unconfirmed Positive (A) Negative 03/12/2021 7 :18 AM OFFICE SUPPORT ASSISTANT MKTO Comment: ----ADDITIONAL INFORMATION---- Seismic Engineer's Cutoff: 100 ng/mL Phencyclidine, U Negative Negative 03/12/2021 7:18 AM OFFICE SUPPORT ASSISTANT MKTO Comment: ----ADDITIONAL INFORMATION---- Seismic Engineer's Cutoff: 25 ng/mL Propoxyphene, U Negative Negative 03/12/2021 7:18 AM OFFICE SUPPORT ASSISTANT Elizabeth AGUILAR Comment: ----ADDITIONAL INFORMATION---- Seismic Engineer's Cutoff: 300 ng/mL Tetrahydrocannabinol, U Unconfirmed Positive Negative 03/12 7:18 AM MKTO (A) OFFICE SUPPORT ASSISTANT Comment: ----ADDITIONAL INFORMATION---- Seismic Engineer's Cutoff: 50 ng/mL Tricyclic Antidepressants, U Negative Negative 03/12/2021 7:18 AM OFFICE SUPPORT ASSISTANT MKTO Comment: ----ADDITIONAL INFORMATION---- Seismic Engineer's Cutoff: 300 ng/mL THE ABOVE DRUG SCREEN PANEL IS FOR MED ICA PURPOSES ONLY Specimen Anatomical Collection Method Collection Time Receive d Time (Source) Location / / Volume Laterality Urine (Urine, 03/12/2021 6:23 AM 03/12/20 6:47 Clean Catch) OFFICE SUPPORT ASSISTANT AM OFFICE SUPPORT ASSISTANT Nunu Sanches P.A.-C. M.S. LAB URINE ORDERABLES Performing Organization Address City/Va Hospital/ZIP Code Phon e Number [facility]- [address] [place] [phone] [place] [address] [address] HCV Ab w/Reflex to HCV PCR, Serum (03/12/2021 5:58 AM OFFICE SUPPORT ASSISTANT) athologist [facility] [place] HCV Ab, S Negative Negative 03/13/2021 [facility] 9:25 AM OFFICE SUPPORT ASSISTANT Comment: Ypktnn-vr-cryzhi ratio is <1.00 . Specimen (Source) Anatomical Collection Method Collection Time Re ceived Time Location / / Volume Laterality Blood (Blood, 03/12/2021 5:58 03/13/2021 7:17 Peripheral Draw) AM OFFICE SUPPORT ASSISTANT AM OFFICE SUPPORT ASSISTANT Ivan Lazo D.O. LAB MICROBIOLOGY - BLOOD ORD ERABLES Performing Organization Address City/Va Hospital/ZIP Code Phon e Number [facility] [address] [place] [address] SUPPORT CENTER [facility] [place] [address] Laboratory Medicine and Pathology [address] [place] [address] Dr. CHAPPELL Hepatitis A IgM Ab, Serum (03/12/2021 5:58 AM OFFICE SUPPORT ASSISTANT) athologist [facility] [place] Hepatitis A Negative Negative 03/13/2021 [facility] IgM Ab, S 9:50 AM OFFICE SUPPORT ASSISTANT Comment: Result does not exclude the possibility of exposure to hepatitis A virus. ??Antibody level duri ng early infection stage may be below the limit of detectio n of the assay. Specimen (Source) Anatomical Collection Method Collection Time Re ceived Time Location / / Volume Laterality Blood (Blood, 03/12/2021 5:58 03/13/2021 7:18 Peripheral Draw) AM OFFICE SUPPORT ASSISTANT AM OFFICE SUPPORT ASSISTANT Ivan WilcoxOSuma LAB MICROBIOLOGY - BLOOD ORD ERABLES Performing Organization Address City/Va Hospital/ZIP Code Phon e Number [facility] [address] [address] TA Garber [facility] 05 SUPPORT CENTER [facility] [place] [address] Laboratory Medicine and Pathology [address] CHAPPELL Hepatitis B Core IgM Ab (03/12/2021 5:58 AM OFFICE SUPPORT ASSISTANT) P athologist Signature HBc IgM Ab, S Negative Negative 03/13/2021 [facility] 9:12 AM OFFICE SUPPORT ASSISTANT Specimen (Source) Anatomical Collection Method Collection Time Re ceived Time Location / / Volume Laterality Blood (Blood, 03/12/2021 5:58 03/13/2021 7:17 Peripheral Draw) AM OFFICE SUPPORT ASSISTANT AM OFFICE SUPPORT ASSISTANT Ivan Lazo D.O. LAB MICROBIOLOGY - BLOOD ORD ERABLES Performing Organization Address City/State/ZIP Code Phon e Number [facility] [address] CHAPPELL [place], [place] [address] SUPPORT CENTER [facility] [place] [address] Laboratory Medicine and Pathology [address] [place] [address] Dr. CHAPPELL Hepatitis B Surface Antigen (03/12/2021 5:58 AM OFFICE SUPPORT ASSISTANT) Patholo gist Method Time Signature HBs Antigen, Nonreactive Nonreactive 03/12/2021 MKTO S 7:43 AM OFFICE SUPPORT ASSISTANT Comment: Biotin has been identified by the chantelle lockett as a potential interfering substance. ??Higher concentr ations of biotin may be found in multivitamins, hair/nail supple ments, and workout supplements. ??If the result does not [facility] clinical observations, repeat testing after patient refrains fr om the use of supplements for at least 12 hours. Specimen (Source) Anatomical Collection Method Collection Time Re ceived Time Location / / Volume Laterality Blood (Blood, 03/12/2021 5:58 03/12/2021 6:10 Peripheral Draw) AM OFFICE SUPPORT ASSISTANT AM OFFICE SUPPORT ASSISTANT Ivan Lazo D.O. LAB MICROBIOLOGY - BLOOD ORD ERABLES Performing Organization Address City/State/ZIP Code Phon e Number [facility]- [address] [place] [phone] [place] [address] (ABNORMAL) Ammonia (03/12/2021 5:58 AM OFFICE SUPPORT ASSISTANT) athologist Signature Ammonia, P 127 (H) <=51 03/12/2021 MKTO mcmol/L 6:33 AM OFFICE SUPPORT ASSISTANT Specimen Anatomical Collection Method Collection Time Receive d Time (Source) Location / / Volume Laterality Blood (Blood, 03/12/2021 5:58 AM 03/12/20 6:09 Venous) OFFICE SUPPORT ASSISTANT AM OFFICE SUPPORT ASSISTANT Ivan Lazo D.O. LAB BLOOD NON ADD-ON Performing Organization Address City/Va Hospital/[facility] Phon e Number [facility]- [address] [place] [phone] [place] [address] System [address] (ABNORMAL) Calcium, Ionized (03/12/2021 5:57 AM OFFICE SUPPORT ASSISTANT) P athologist Signature Calcium, 3.74 (L) 4.65 - 03/12/2021 MKTO Ionized, B 5.30 mg/dL 6:21 AM OFFICE SUPPORT ASSISTANT Specimen Anatomical Collection Method Collection Time Receive d Time (Source) Location / / Volume Laterality Blood 03/12/2021 5:57 AM 6:10 OFFICE SUPPORT ASSISTANT AM OFFICE SUPPORT ASSISTANT Nunu Sanches P.A.-C., M.S. LAB BLOOD NON ADD-ON Performing Organization Address City/Va Hospital/[facility] Phon e Number [facility]- [address] [place] [phone] [facility] [place] [address] System [address] (ABNORMAL) pH (03/12/2021 5:57 AM OFFICE SUPPORT ASSISTANT) P athologist Signature pH 7.63 (H) 7.35 - 7.45 03/12/2021 MKTO pH 6:21 AM OFFICE SUPPORT ASSISTANT Specimen Anatomical Collection Method Collection Time Receive d Time (Source) Location / / Volume Laterality Blood 03/12/2021 5:57 AM 6:10 OFFICE SUPPORT ASSISTANT AM OFFICE SUPPORT ASSISTANT Nunu Sanches P.A.-C., M.S. LAB HISTORICAL ORDERS Performing Organization Address City/[facility] Hospital/ZIP [facility] Phon e Number [facility]- [address] [place] [phone] [place] [address] [address] (ABNORMAL) Lactate, B (03/12/2021 5:57 AM OFFICE SUPPORT ASSISTANT) athologist Signature Lactate, B 5.6 (H) 0.5 - 2.2 03/12/2021 MKTO mmol/L 6:21 AM OFFICE SUPPORT ASSISTANT Specimen Anatomical Collection Method Collection Time Receive d Time (Source) Location / / Volume Laterality Blood 03/12/2021 5:57 AM 6:10 OFFICE SUPPORT ASSISTANT AM OFFICE SUPPORT ASSISTANT Nunu Sanches P.A.-C., M.S. LAB BLOOD NON ADD-ON Performing Organization Address City/Va Hospital/[facility] Phon e Number [address] [address] [place] [address] S-TSH (Thyroid-Stimulating Hormone - Sensitive) (03/12/2021 5:57 AM OFFICE SUPPORT ASSISTANT) athologist Signature TSH, Sensitive 1.1 0.3 - 4.2 03/12/2021 MKTO mIU/L 7:44 AM OFFICE SUPPORT ASSISTANT Specimen Anatomical Collection Method Collection Time Receive d Time (Source) Location / / Volume Laterality Blood (Blood, 03/12/2021 5:57 AM 03/12/20 6:10 Venous) OFFICE SUPPORT ASSISTANT AM OFFICE SUPPORT ASSISTANT Nunu Sanches P.A.-C., M.S. LAB BLOOD ADD-ON Performing Organization Address City/Va Hospital/[facility] Phon e Number [address] [address] [place] [address] System [address] Salicylate Level (03/12/2021 5:57 AM OFFICE SUPPORT ASSISTANT) athologist Signature Salicylate, P <0.3 <30.0 mg/dL 03/12/2021 MKTO 6:50 AM OFFICE SUPPORT ASSISTANT Specimen Anatomical Collection Method Collection Time Receive d Time (Source) Location / / Volume Laterality Blood (Blood, 03/12/2021 5:57 AM 03/12/20 6:10 Venous) OFFICE SUPPORT ASSISTANT AM OFFICE SUPPORT ASSISTANT Nunu Sanches P.A.-C., M.S. LAB BLOOD ADD-ON Performing Organization Address City/Va Hospital/ZIP Code Phon e Number [facility]- [address] [place] [phone] [place] [address] Acetaminophen Level (03/12/2021 5:57 AM OFFICE SUPPORT ASSISTANT) Patholo gist Method Time Signature Acetaminophen, <7 Therapeutic 03/12/2021 MKTO P Range: 10-30 6:50 AM OFFICE SUPPORT ASSISTANT mcg/mL Specimen Anatomical Collection Method Collection Time Receive d Time (Source) Location / / Volume Laterality Blood (Blood, 03/12/2021 5:57 AM 03/12/20 6:10 Venous) OFFICE SUPPORT ASSISTANT AM OFFICE SUPPORT ASSISTANT Nunu Sanches P.A.-C., M.S. LAB BLOOD ADD-ON Performing Organization Address [facility] Hospital/[facility] Phon e Number [address] [phone] [place] [address] hCG (Human Chorionic Gonadotropin), Quantitative, (03/12/2021 5:57 AM OFFICE SUPPORT ASSISTANT) P athologist Signature HCG, <0.5 <5 IU/L 03/12/2021 MKTO Quantitative, 6:55 AM OFFICE SUPPORT ASSISTANT , P Comment: Biotin has been identified by the chantelle lockett as a potential interfering substance. ??Higher concentr ations of biotin may be found in multivitamins, hair/nail supple ments, and workout supplements. ??If the result does not [facility] clinical observations, repeat testing after patient refrains fr om the use of supplements for at least 12 hours. Specimen Anatomical Collection Method Collection Time Receive d Time (Source) Location / / Volume Laterality Blood (Blood, 03/12/2021 5:57 AM 03/12/20 21 6:10 Venous) OFFICE SUPPORT ASSISTANT AM OFFICE SUPPORT ASSISTANT Nunu Sanches P.A.-C., M.S. LAB BLOOD ADD-ON Performing Organization Address [facility] Hospital/[facility] Phon e Number [address] [address] [place] [address] Ethanol Level, Serum (03/12/2021 5:57 AM OFFICE SUPPORT ASSISTANT) athologist Signature Ethanol, P <10 <10 mg/dL 03/12/2021 6:50 MKTO AM OFFICE SUPPORT ASSISTANT Specimen Anatomical Collection Method Collection Time Receive d Time (Source) Location / / Volume Laterality Blood (Blood, 03/12/2021 5:57 AM 03/12/20 6:10 Venous) OFFICE SUPPORT ASSISTANT AM OFFICE SUPPORT ASSISTANT Nunu Sanches P.A.-C., M.S. LAB BLOOD NON ADD-ON Performing Organization Address City/Va Hospital/ZIP Code Phon e Number [facility]- [address] [place] [phone] [place] [address] System in [place] [address] [facility] (ABNORMAL) NT-Pro B-Type Natriuretic Peptide (BNP) (03/12/2021 5:57 AM OFFICE SUPPORT ASSISTANT) athologist Signature NT-Pro BNP 1032 (H) <=140 pg/mL 03/12/2021 MKTO 7:44 AM OFFICE SUPPORT ASSISTANT Comment: NT-proBNP values less than 300 pg/mL [...] ??If the result does not [facility] clinical observations, repeat testing after patient refrains fr om the use of supplements for at least 12 hours. Specimen Anatomical Collection Method Collection Time Receive d Time (Source) Location / / Volume Laterality Blood (Blood, 03/12/2021 5:57 AM 03/12/20 21 6:10 Venous) OFFICE SUPPORT ASSISTANT AM OFFICE SUPPORT ASSISTANT Nunu Sanches P.A.-C., M.S. LAB BLOOD ADD-ON Performing Organization Address City/State/ZIP Code Phon e Number [facility]- [address] [place] [phone] [facility] [place] [address] [address] Lipase (03/12/2021 5:57 AM OFFICE SUPPORT ASSISTANT) P athologist Signature Lipase, P 18 13 - 60 U/L 03/12/2021 6:50 MKTO AM OFFICE SUPPORT ASSISTANT Specimen Anatomical Collection Method Collection Time Receive d Time (Source) Location / / Volume Laterality Blood (Blood, 03/12/2021 5:57 AM 03/12/20 6:10 Venous) OFFICE SUPPORT ASSISTANT AM OFFICE SUPPORT ASSISTANT Nunu Sanches P.A.-C., M.S. LAB BLOOD ADD-ON Performing Organization Address City/Va Hospital/ZIP Code Phon e Number [facility]- [address] [place] [phone] [place] [address] System [address] (ABNORMAL) Prothrombin Time (PT) (03/12/2021 5:57 AM OFFICE SUPPORT ASSISTANT) Patholo gist Method Time Signature Prothrombin 25.3 (H) 9.4 - 12.5 03/12/2021 MKTO Time, P sec 6:26 AM OFFICE SUPPORT ASSISTANT INR 2.2 0.9 - 1.1 03/12/2021 MKTO 6:26 AM OFFICE SUPPORT ASSISTANT Comment: ----ADDITIONAL INFORMATION---- Standard intensity warfarin therapeutic range: 2.0 to 3.0 ?? High intensity warfarin therapeutic rang e: 2.5 to 3.5 Specimen Anatomical Collection Method Collection Time Receive d Time (Source) Location / / Volume Laterality Blood (Blood, 03/12/2021 5:57 AM 03/12/20 21 6:10 Venous) OFFICE SUPPORT ASSISTANT AM OFFICE SUPPORT ASSISTANT Nuun Sanches P.A.-C., M.S. LAB BLOOD ADD-ON Performing Organization Address City/State/ZIP Code Phon e Number [facility]- [address] [place] [phone] [place] [address] [address] (ABNORMAL) Phosphorus Inorganic (03/12/2021 5:57 AM OFFICE SUPPORT ASSISTANT) athologist Signature Phosphorus 1.9 (L) 2.5 - 4.5 03/12/2021 MKTO (Inorganic), P mg/dL 6:58 AM OFFICE SUPPORT ASSISTANT Specimen Anatomical Collection Method Collection Time Receive d Time (Source) Location / / Volume Laterality Blood (Blood, 03/12/2021 5:57 AM 03/12/20 6:10 Venous) OFFICE SUPPORT ASSISTANT AM OFFICE SUPPORT ASSISTANT Nunu Sanches P.A.-C., M.S. LAB BLOOD ADD-ON Performing Organization Address [facility] Phon e Number [address] [address] [place] [address] (ABNORMAL) Magnesium (03/12/2021 5:57 AM OFFICE SUPPORT ASSISTANT) athologist Signature Magnesium, P 1.1 (L) 1.7 - 2.3 03/12/2021 MKTO mg/dL 6:58 AM OFFICE SUPPORT ASSISTANT Specimen Anatomical Collection Method Collection Time Receive d Time (Source) Location / / Volume Laterality Blood (Blood, 03/12/2021 5:57 AM 03/12/20 6:10 Venous) OFFICE SUPPORT ASSISTANT AM OFFICE SUPPORT ASSISTANT Nunu Sanches P.A.-C., M.S. LAB BLOOD ADD-ON Performing Organization Address [facility] Phon e Number [address] [address] [place] [address] (ABNORMAL) Comprehensive Metabolic Panel (03/12/2021 5:57 AM OFFICE SUPPORT ASSISTANT) athologist Signature Potassium, P 3.0 (L) 3.6 - 5.2 03/12/2021 MKTO mmol/L 6:50 AM OFFICE SUPPORT ASSISTANT Sodium, P 132 (L) 135 - 145 03/12/2021 MKTO mmol/L 6:50 AM OFFICE SUPPORT ASSISTANT Chloride, P 94 (L) 98 - 107 03/12/2021 MKTO mmol/L 6:50 AM OFFICE SUPPORT ASSISTANT Bicarbonate, P 17 (L) 22 - 29 03/12/2021 MKTO mmol/L 6:50 AM OFFICE SUPPORT ASSISTANT Anion Gap, P 21 (H) 7 - 15 03/12/2021 MKTO 6:50 AM OFFICE SUPPORT ASSISTANT BUN (Blood Urea 8 6 - 21 03/12/2021 MKTO Nitrogen), P mg/dL 6:50 AM OFFICE SUPPORT ASSISTANT Creatinine 0.64 0.59 - 03/12/2021 MKTO 1.04 mg/dL 6:50 AM OFFICE SUPPORT ASSISTANT eGFR-Black/Afri >90 >=60 03/12/2021 MKTO can Afghan mL/min/BSA 6:50 AM OFFICE SUPPORT ASSISTANT Comment: ----ADDITIONAL INFORMATION---- Estimated GFR calculated using the 2009 CKD_EPI creatinine equation. eGFR Non-Black/ >90 >=60 mL/min/BSA 03/12/2021 6:50 AM OFFICE SUPPORT ASSISTANT MKTO Comment: ----ADDITIONAL INFORMATION---- Estimated GFR calculated using the 2009 CKD_EPI creatinine equation. Calcium, Total, P 8.0 (L) 8.6 - 10.0 mg/dL 03/12/2021 6:50 AM OFFICE SUPPORT ASSISTANT MKTO Glucose, P 118 70 - 140 mg/dL 03/12/2021 6:50 AM OFFICE SUPPORT ASSISTANT M KTO Protein, Total, P 5.6 (L) 6.3 - 7.9 g/dL 03/12/2021 6:50 A M OFFICE SUPPORT ASSISTANT MKTO Albumin, P 2.9 (L) 3.5 - 5.0 g/dL 03/12/2021 6:50 AM OFFICE SUPPORT ASSISTANT M KTO Aspartate Aminotransferase 45 (H) 8 - 43 U/L 03/12/2021 6 :50 AM OFFICE SUPPORT ASSISTANT MKTO (AST), P Alkaline Phosphatase, P 126 (H) 35 - 104 U/L 03/12/2021 6: 50 AM OFFICE SUPPORT ASSISTANT MKTO Alanine Aminotransferase 13 7 - 45 U/L 03/12/2021 6:5 0 AM OFFICE SUPPORT ASSISTANT MKTO (ALT), P Bilirubin, Total, P 6.6 (H) <=1.2 mg/dL 03/12/2021 6:50 AM OFFICE SUPPORT ASSISTANT MKTO Specimen Anatomical Collection Method Collection Time Receive d Time (Source) Location / / Volume Laterality Blood (Blood, 03/12/2021 5:57 AM 03/12/20 6:10 Venous) OFFICE SUPPORT ASSISTANT AM OFFICE SUPPORT ASSISTANT Nunu M Muigai P.A.-C., M.S. LAB BLOOD ADD-ON Performing Organization Address [facility] Phon e Number [facility]- [address] [place] [phone] [place] [address] [address] (ABNORMAL) CBC without Differential (03/12/2021 5:57 AM OFFICE SUPPORT ASSISTANT) [facility] Method Time Signature Hemoglobin 7.7 (L) 11.6 - 03/12/2021 MKTO 15.0 g/dL 6:26 AM OFFICE SUPPORT ASSISTANT Hematocrit 22.6 (L) 35.5 - 03/12/2021 MKTO 44.9 % 6:26 AM OFFICE SUPPORT ASSISTANT Erythrocytes 2.12 (L) 3.92 - 03/12/2021 MKTO 5.13 6:26 AM OFFICE SUPPORT ASSISTANT x10(12)/L MCV 106.6 (H) 78.2 - 03/12/2021 MKTO 97.9 fL 6:26 AM OFFICE SUPPORT ASSISTANT RBC Distrib Width 15.7 12.2 - 03/12/2021 MKTO 16.1 % 6:26 AM OFFICE SUPPORT ASSISTANT Platelet Count 144 (L) 157 - 371 03/12/2021 MKTO x10(9)/L 6:26 AM OFFICE SUPPORT ASSISTANT Leukocytes 12.7 (H) 3.4 - 9.6 03/12/2021 MKTO x10(9)/L 6:26 AM OFFICE SUPPORT ASSISTANT Specimen Anatomical Collection Method Collection Time Receive d Time (Source) Location / / Volume Laterality Blood (Blood, 03/12/2021 5:57 AM 03/12/20 21 6:10 Venous) OFFICE SUPPORT ASSISTANT AM OFFICE SUPPORT ASSISTANT Nunu Sanches P.A.-C., M.S. LAB BLOOD ADD-ON Performing Organization Address City/[facility] Hospital/[facility] Phon e Number [facility]- [address] [place] [phone] [place] [address] [facility] in [address] Bacteria / Raudel Culture, Blood #1 (03/12/2021 5:57 AM OFFICE SUPPORT ASSISTANT) [facility] Method Time Signature Bacteria/Adriana No growth 03/17/2021 MKTO da Culture, after 5 7:05 AM OFFICE SUPPORT ASSISTANT Blood day/s of incubation. Specimen (Source) Anatomical Collection Method Collection Time Re ceived Time Location / / Volume Laterality Blood (Blood, 03/12/2021 5:57 03/12/2021 6:10 Peripheral Draw) AM OFFICE SUPPORT ASSISTANT AM OFFICE SUPPORT ASSISTANT Comment: Specimen Source Site: Blood Nunu Sanches P.A.-C. M.S. LAB MICROBIOLOGY - GENE RAL ORDERABLES Performing Organization Address [facility] Phon e Number [address] [address] [place] [address] Glucose, POCT (03/12/2021 5:48 AM OFFICE SUPPORT ASSISTANT) athologist Signature Glucose, POCT, 120 70 - 140 03/12/2021 [facility] B mg/dL 5:48 AM OFFICE SUPPORT ASSISTANT Specimen Anatomical Collection Method Collection Time Receive d Time (Source) Location / / Volume Laterality Blood 03/12/2021 5:48 AM 7:25 OFFICE SUPPORT ASSISTANT AM OFFICE SUPPORT ASSISTANT Generic Rals LAB POCT ORDERABLES-MANUAL Performing Organization Address [facility] Phon e Number [address] [address] [place] [address] documented in this encounter Visit Diagnoses [...] tablet 650 mg Given 03/19/2021 5:57 PM OFFICE SUPPORT ASSISTANT 650 mg (TYLENOL) 650 mg, oral, Once, On Wed03/19/21 at 1800, For 1 dose albumin human 25 % injection 25 g New Bag 03/19/2021 6:39 AM OFFICE SUPPORT ASSISTANT 25 g 25 g, intravenous, Every 6 hours scheduled, First dose on Wed03/12/21 at 1400, If no infusion rate specified: Administer the 25% solution at 100 mL/hr New Bag 03/19/2021 12:15 AM OFFICE SUPPORT ASSISTANT 25 g New Bag 03/18/2021 6:32 PM OFFICE SUPPORT ASSISTANT 25 g albumin human 5 % injection 12.5 g New Bag 03/12/2021 8:49 AM OFFICE SUPPORT ASSISTANT 12.5 g 12.5 g, intravenous, Every 1 hour, First dose on Wed03/12/21 at 0815, For 2 doses, If no infusion rate specified: Administer the 5% solution at 999 mL/hr or less if ICU/shock, otherwise infuse at 250 mL/hr. New Bag 03/12/2021 8:48 AM OFFICE SUPPORT ASSISTANT 12.5 g albumin human 5 % injection 25 g New Bag 03/13/2021 7:30 PM OFFICE SUPPORT ASSISTANT 25 g 250 mL/hr 25 g, intravenous, Once, On Luz Marina 03/13/21 at 1900, For 1 dose, If no infusion rate specified: Administer the 5% solution at 999 mL/hr or less if ICU/shock, otherwise infuse at 250 mL/hr. calcium chloride in NaCl 0.9% IVPB 1 g New Bag 03/12/2021 2:06 PM OFFICE SUPPORT ASSISTANT 1 g 240 mL/hr 1 g, intravenous, at 240 mL/hr, Administer over 15 Minutes, Once, On Wed03/12/21 at 1245, For 1 dose, Infuse each gram over at least 15 minutes. calcium gluc in NaCl, iso-osm IVPB 2 g New Bag 03/16/2021 5:53 AM OFFICE SUPPORT ASSISTANT 2 g 400 mL/hr 2 g, intravenous, at 400 mL/hr, Administer over 15 Minutes, Once, On Wed03/16/21 at 0530, For 1 dose calcium gluconate in NaCl (iso-osm) New Bag 03/12/2021 8:03 AM OFFICE SUPPORT ASSISTANT 1 g 200 mL/hr IVPB 1 g 1 g, intravenous, at 200 mL/hr, Administer over 15 Minutes, Once, On Wed03/12/21 at 0730, For 1 dose cefTRIAXone injection 1 g (ROCEPHIN) Given 03/19/2021 9:08 AM OFFICE SUPPORT ASSISTANT 1 g 1 g, intravenous, Daily, First dose (after last modification) on Wed03/19/21 at 0900, If needed, reconstitute vial per package insert instructions. See IVAG for administration guidelines. , Drug Monitoring Program: Pharmacist to adjust medication dosing based on indication and drug clearance factors., Indications: sbp prophylaxis cefTRIAXone injection 2 g (ROCEPHIN) Given 03/18/2021 8:48 AM OFFICE SUPPORT ASSISTANT 2 g 2 g, intravenous, Daily, First dose (after last modification) on Wed03/18/21 at 0900, If needed, reconstitute vial per package insert instructions. See IVAG for administration guidelines. , Drug Monitoring Program: Pharmacist to adjust medication dosing based on indication and drug clearance factors., Indications: sbp prophylaxis ciprofloxacin tablet 500 mg (CIPRO) Given 03/24/2021 6:18 AM OFFICE SUPPORT ASSISTANT 500 mg 500 mg, oral, Daily before breakfast, First dose on Luz Marina 03/20/21 at 0700, Take 2 hours before or 6 hours after antacids containing magnesium or aluminum, sucralfate, didanosine, polymeric phosphate binders, or products containing calcium, iron, or zinc., Drug Monitoring Program: Pharmacist to adjust medication dosing based on indication and drug clearance factors., Indications: Prophylaxis, medical Given 03/23/2021 6:34 AM OFFICE SUPPORT ASSISTANT 500 mg Given 03/22/2021 7:02 AM OFFICE SUPPORT ASSISTANT 500 mg dexmedeTOMIDine 4 mcg/mL Rate/Dose Change 03/14/2021 9:18 0.2 mcg/k g/hr 2.71 mL/hr in NaCl 0.9% 100 mL AM OFFICE SUPPORT ASSISTANT infusion (PRECEDEX) 0.2-1.5 mcg/kg/hr ? 54.2 kg [...] care unit Rate/Dose Verify 03/14/2021 9:00 AM OFFICE SUPPORT ASSISTANT 0.4 mcg/kg/hr 5.42 mL/hr Rate/Dose Change 03/14/2021 8:53 AM OFFICE SUPPORT ASSISTANT 0.4 mcg/kg/hr 5.42 mL/hr doxycycline 100 mg in NaCl 0.9% New Bag 03/12/2021 9:13 PM OFFICE SUPPORT ASSISTANT 100 mg 100 mL/hr IVPB (VIBRAMYCIN) 100 mg, intravenous, at 100 mL/hr, Administer over 60 Minutes, Every 12 hours scheduled, First dose on Wed03/12/21 at 0900, Mini-Bag Plus bag, Indications: Intra-abdominal infection, community acquired, Respiratory tract infection, healthcare associated New Bag 03/12/2021 8:59 AM OFFICE SUPPORT ASSISTANT 100 mg 100 mL/hr doxycycline 100 mg in NaCl 0.9% New Bag 03/17/2021 8:44 PM OFFICE SUPPORT ASSISTANT 100 mg 100 mL/hr IVPB (VIBRAMYCIN) 100 mg, intravenous, at 100 mL/hr, Administer over 60 Minutes, Every 12 hours scheduled, First dose (after last modification) on Luz Marina 03/13/21 at 0900, For 5 days, Mini-Bag Plus bag, Indications: Intra-abdominal infection, community acquired, Respiratory tract infection, healthcare associated New Bag 03/17/2021 11:08 AM OFFICE SUPPORT ASSISTANT 100 mg 100 mL/hr New Bag 03/16/2021 8:38 PM OFFICE SUPPORT ASSISTANT 100 mg 100 mL/hr folic acid tablet 1 mg Given 03/24/2021 8:52 AM OFFICE SUPPORT ASSISTANT 1 mg 1 mg, oral, Daily, First dose on Luz Marina 03/13/21 at 1230 Given 03/23/2021 8:10 AM OFFICE SUPPORT ASSISTANT 1 mg Given 03/22/2021 10:22 AM OFFICE SUPPORT ASSISTANT 1 mg furosemide injection 20 mg (LASIX) Given 03/19/2021 9:08 AM OFFICE SUPPORT ASSISTANT 20 mg 20 mg, intravenous, Every 24 hours scheduled, First dose on Wed03/14/21 at 1230, Adults: Doses less than 120 mg: IV push over 20 mg/minute. Doses 120 mg or greater: IVPB at 4 mg/minute. Peds/Neonates: Doses less than 120 mg over 0.5 mg/kg/minute. Doses 120 mg or greater: IVPB at 4 mg/minute. Given 03/18/2021 8:49 AM OFFICE SUPPORT ASSISTANT 20 mg Given 03/17/2021 10:48 AM OFFICE SUPPORT ASSISTANT 20 mg furosemide tablet 20 mg (LASIX) Given 03/24/2021 8:52 AM OFFICE SUPPORT ASSISTANT 20 mg 20 mg, oral, Daily, First dose on Luz Marina 03/20/21 at 0900 Given 03/23/2021 8:10 AM OFFICE SUPPORT ASSISTANT 20 mg Given 03/22/2021 10:22 AM OFFICE SUPPORT ASSISTANT 20 mg heparin (porcine) Given 03/15/2021 5:35 AM OFFICE SUPPORT ASSISTANT 5,000 Units Left Upper Arm injection 5,000 Units (Back) 5,000 Units, subcutaneous, Every 8 hours scheduled, First dose on Wed03/12/21 at 0645 Given 03/14/2021 8:40 PM OFFICE SUPPORT ASSISTANT 5,000 Units Left Upper Arm (Back) Given 03/14/2021 2:51 PM OFFICE SUPPORT ASSISTANT 5,000 Units Right Lower Abdomen iohexoL 300 mg iodine/mL solution 1-200 mL Given 03/12/2021 1:50 PM OFFICE SUPPORT ASSISTANT 100 mL (OMNIPAQUE) 1-200 mL, intravenous, Once in imaging, contrast, Starting on Wed03/12/21 at 1346, For 1 dose, Dose per Radiant Medication Guidelines iohexoL 300 mg iodine/mL solution 1-200 mL Given 03/16/2021 2:37 AM OFFICE SUPPORT ASSISTANT 100 mL (OMNIPAQUE) 1-200 mL, intravenous, Once in imaging, contrast, for Ct exam, Starting on Wed03/16/21 at 0230, For 1 dose, Dose per Radiant Medication Guidelines ketamine injection (KETALAR) Given 03/12/2021 9:42 AM OFFICE SUPPORT ASSISTANT 30 mg Code/trauma/sedation medication, Starting on Wed03/12/21 at 0942 ketamine injection 60 mg (KETALAR) Given 03/12/2021 9:12 AM OFFICE SUPPORT ASSISTANT 20 mg 60 mg, intravenous, Once, On Wed03/12/21 at 0845, For 1 dose Given 03/12/2021 8:50 AM OFFICE SUPPORT ASSISTANT 20 mg lactulose (CHRONULAC) 200 g in sterile Given 03/12/2021 8:18 AM OFFICE SUPPORT ASSISTANT 1,000 mL water 1,000 mL enema 1,000 mL, rectal, Once, On Wed03/12/21 at 0615, For 1 dose, Total dose= 1000 mL; Instill ~ 300 mL at a time, and retain for 15-20 minutes each Rectal Use Only. Refrigerate. PROTECT FROM LIGHT. lactulose solution 30 g (CHRONULAC) Given 03/24/2021 8:52 AM OFFICE SUPPORT ASSISTANT 30 g 30 g, gastric tube, 3 times daily, First dose on Wed03/12/21 at 1400, Aim for 500 cc stool in 24 hours or 3-4 loose bowel movements per day Given 03/23/2021 9:49 PM OFFICE SUPPORT ASSISTANT 30 g Given 03/23/2021 2:04 PM OFFICE SUPPORT ASSISTANT 30 g LORazepam injection 1 mg (ATIVAN) 1 mg, intravenous, Every 4 hours PRN, se hui, Starting on Luz Marina 03/20/21 at 2120, For intravenous use, dilute with equal volume of 0.9% NS magnesium oxide tablet 400 mg (MAG-OX) Given 03/24/2021 6:18 AM OFFICE SUPPORT ASSISTANT 400 mg 400 mg, oral, 2 times daily before breakfast and dinner, First dose on 03/23/21 at 0700 Given 03/23/2021 3:41 PM OFFICE SUPPORT ASSISTANT 400 mg Given 03/23/2021 6:34 AM OFFICE SUPPORT ASSISTANT 400 mg magnesium sulfate in D5W IVPB 1 g New Bag 03/15/2021 6:10 PM OFFICE SUPPORT ASSISTANT 1 g 100 mL/hr 1 g, intravenous, at 100 mL/hr, Administer over 60 Minutes, Once, On 03/15/21 at 1800, For 1 dose, Over 1 hours. , Monitor the following for replacement: Magnesium magnesium sulfate in water IVPB 2 g New Bag 03/12/2021 8:03 AM OFFICE SUPPORT ASSISTANT 2 g 25 mL/hr 2 g, intravenous, at 25 mL/hr, Administer over 120 Minutes, Once, On Wed03/12/21 at 0715, For 1 dose magnesium sulfate in water IVPB 2 g New Bag 03/15/2021 5:26 AM OFFICE SUPPORT ASSISTANT 2 g 25 mL/hr 2 g, intravenous, at 25 mL/hr, Administer over 120 Minutes, Once, On 03/15/21 at 0600, For 1 dose magnesium sulfate in water IVPB 2 g New Bag 03/16/2021 5:08 AM OFFICE SUPPORT ASSISTANT 2 g 25 mL/hr 2 g, intravenous, at 25 mL/hr, Administer over 120 Minutes, Once, On Wed03/16/21 at 0500, For 1 dose magnesium sulfate in New Bag 03/22/2021 4:18 PM OFFICE SUPPORT ASSISTANT 2 g 25 mL/hr Right Antecubital water IVPB 2 g 2 g, intravenous, at 25 mL/hr, Administer over 120 Minutes, Once, On 03/22/21 at 1530, For 1 dose magnesium sulfate in water IVPB Rate/Dose Change 03/12/2021 4:02 PM OFFICE SUPPORT ASSISTANT 50 mL/hr 4 g 4 g, intravenous, at 25 mL/hr, Administer over 240 Minutes, Once, On Wed03/12/21 at 1345, For 1 dose New Bag 03/12/2021 2:27 PM OFFICE SUPPORT ASSISTANT 4 g 25 mL/hr magnesium sulfate in water IVPB 4 g New Bag 03/19/2021 3:40 PM OFFICE SUPPORT ASSISTANT 4 g 25 mL/hr 4 g, intravenous, at 25 mL/hr, Administer over 240 Minutes, Once, On Wed03/19/21 at 1000, For 1 dose, Over 4 hours. melatonin tablet 3 mg Given 03/17/2021 2:30 AM OFFICE SUPPORT ASSISTANT 3 mg 3 mg, oral, Once, On Wed03/17/21 at 0230, For 1 dose melatonin tablet 6 mg Given 03/23/2021 9:49 PM OFFICE SUPPORT ASSISTANT 6 mg 6 mg, oral, Daily at bedtime, First dose (after last modification) on Wed03/17/21 at 2100 Given 03/23/2021 12:19 AM OFFICE SUPPORT ASSISTANT 6 mg Given 03/22/2021 12:48 AM OFFICE SUPPORT ASSISTANT 6 mg multivitamin (Adult MVI) 10 mL in NaCl New Bag 03/15/2021 8:06 AM OFFICE SUPPORT ASSISTANT 255 mL/hr 0.9% 500 mL IVPB intravenous, at 255 mL/hr, Administer over 2 Hours, Daily, First dose on Luz Marina 03/13/21 at 0900, For 3 days, Protect from light. New Bag 03/14/2021 8:15 AM OFFICE SUPPORT ASSISTANT 255 mL/hr New Bag 03/13/2021 9:40 AM OFFICE SUPPORT ASSISTANT 255 mL/hr NaCl 0.9% infusion Rate/Dose Verify 03/16/2021 12:00 AM 20 mL/hr 20 mL/hr 20-500 mL/hr, intravenous, OFFICE SUPPORT ASSISTANT Once as needed, Between Units of Blood Products, Starting on Wed03/15/21 at 1218, For 1 dose, Infuse at the same rate as the blood infusion until tubing cleared. Nurse may reduce rate to 20 mL/hour or as otherwise directed until next blood infusion arrives then discontinue when infusion complete. Rate/Dose Verify 03/15/2021 9:00 PM OFFICE SUPPORT ASSISTANT 20 mL/hr 20 mL/hr Rate/Dose Verify 03/15/2021 8:00 PM OFFICE SUPPORT ASSISTANT 20 mL/hr 20 mL/hr naloxone injection 0.2 [...] mL/hr mcg/mL in D5W 250 mL AM OFFICE SUPPORT ASSISTANT infusion 0-0.3 mcg/kg/min ? 54.2 kg Dosing weight (0-60.975 mL/hr, rounded to 0-60.98 mL/hr), intravenous, Continuous, Starting on Wed03/12/21 at 1100, Protect from light and avoid extravasation, Patient Type: Sepsis, Initiate at: 0.05 mcg/kg/min, Titrate at: 0.05 mcg/kg/min. every 5 min., Wean at: 0.01 mcg/kg/min. every 5 min., Goal: Other, Goal: MAP 60-65 New Bag 03/14/2021 10:03 PM OFFICE SUPPORT ASSISTANT 0.01 mcg/kg/min 2.03 mL/hr Rate/Dose Change 03/13/2021 12:23 PM OFFICE SUPPORT ASSISTANT 0.02 mcg/kg/min 4.07 mL/hr norepinephrine 16 mcg/mL in NaCl Rate/Dose 03/12/2021 0.07 14. 2 0.9% 250 mL infusion Change 10:01 AM OFFICE SUPPORT ASSISTANT mcg/kg/min mL/hr Code/trauma/sedation continuous med, Starting on Wed03/12/21 at 0942 Rate/Dose Change 03/12/2021 9:53 AM OFFICE SUPPORT ASSISTANT 0.08 mcg/kg/min 16.3 mL/hr Rate/Dose Change 03/12/2021 9:45 AM OFFICE SUPPORT ASSISTANT 0.1 mcg/kg/min 20.3 mL/hr octreotide 2 mcg/mL in Rate/Dose Verify 03/13/2021 8:00 AM 25 mcg/hr 12.5 mL/hr NaCl 0.9% 250 mL infusion OFFICE SUPPORT ASSISTANT (SandoSTATIN) 25 mcg/hr (12.5 mL/hr), intravenous, Continuous, Starting on Wed03/12/21 at 1000, Protect from light. Rate/Dose Verify 03/13/2021 7:00 AM OFFICE SUPPORT ASSISTANT 25 mcg/hr 12.5 mL/hr Rate/Dose Verify 03/13/2021 6:00 AM OFFICE SUPPORT ASSISTANT 25 mcg/hr 12.5 mL/hr octreotide 2 mcg/mL in Rate/Dose Verify 03/16/2021 9:00 AM 25 mcg/hr 12.5 mL/hr NaCl 0.9% 250 mL infusion OFFICE SUPPORT ASSISTANT (SandoSTATIN) 25 mcg/hr (12.5 mL/hr), intravenous, Continuous, Starting on Wed03/13/21 at 0845, For 72 hours, Protect from light. Rate/Dose Verify 03/16/2021 8:00 AM OFFICE SUPPORT ASSISTANT 25 mcg/hr 12.5 mL/hr Rate/Dose Verify 03/16/2021 7:00 AM OFFICE SUPPORT ASSISTANT 25 mcg/hr 12.5 mL/hr OLANZapine tablet 5 mg (ZyPREXA) Given 03/18/2021 9:29 PM OFFICE SUPPORT ASSISTANT 5 mg 5 mg, oral, Daily at bedtime, First dose on Wed03/18/21 at 1730 OLANZapine tablet 5 mg (ZyPREXA) Given 03/22/2021 12:48 AM OFFICE SUPPORT ASSISTANT 5 mg 5 mg, oral, Bedtime PRN, sleep, anxiety, Starting on Wed03/19/21 at 1830 Given 03/21/2021 1:11 AM OFFICE SUPPORT ASSISTANT 5 mg oxyCODONE IR tablet 5 mg (ROXICODONE) Given 03/21/2021 3:28 AM OFFICE SUPPORT ASSISTANT 5 mg 5 mg, oral, Every 4 hours PRN, moderate pain or score 4-6 of 10, severe pain or score 7-10 of 10, Starting on Wed03/14/21 at 1957 Given 03/20/2021 1:56 AM OFFICE SUPPORT ASSISTANT 5 mg Given 03/16/2021 4:23 AM OFFICE SUPPORT ASSISTANT 5 mg oxyCODONE IR tablet 5 mg (ROXICODONE) Given 03/22/2021 7:02 AM OFFICE SUPPORT ASSISTANT 5 mg 5 mg, oral, Once as needed, moderate pain or score 4-6 of 10, severe pain or score 7-10 of 10, Starting on Wed03/22/21 at 0354, For [address] tablet 40 mg (PROTONIX) Given 03/24/2021 8:52 AM OFFICE SUPPORT ASSISTANT 40 mg 40 mg, oral, 2 times daily, First dose on Wed03/19/21 at 2100, Swallow whole. Do NOT crush, chew, or split tablet. Given 03/23/2021 9:49 PM OFFICE SUPPORT ASSISTANT 40 mg Given 03/23/2021 8:09 AM OFFICE SUPPORT ASSISTANT 40 mg pantoprazole injection 40 mg (PROTONIX) Given 03/12/2021 8:49 AM OFFICE SUPPORT ASSISTANT 40 mg 40 mg, intravenous, Every 24 hours scheduled, First dose on Wed03/12/21 at 0900, Administer IV push over 2 minutes. Add 10 mL NS to 40 mg vial for a final concentration of 4 mg/mL. pantoprazole injection 40 mg (PROTONIX) Given 03/19/2021 9:08 AM OFFICE SUPPORT ASSISTANT 40 mg 40 mg, intravenous, Every 12 hours scheduled, First dose (after last modification) on Wed03/12/21 at 2100, Administer IV push over 2 minutes. Add 10 mL NS to 40 mg vial for a final concentration of 4 mg/mL. Given 03/18/2021 8:49 AM OFFICE SUPPORT ASSISTANT 40 mg Given 03/17/2021 8:34 PM OFFICE SUPPORT ASSISTANT 40 mg phenylephrine injection Given 03/12/2021 9:46 AM OFFICE SUPPORT ASSISTANT 100 mcg Code/trauma/sedation medication, Starting on Wed03/12/21 at 0946 phytonadione (vitamin K1) 10 mg in New Bag 03/16/2021 8:30 AM OFFICE SUPPORT ASSISTANT 10 mg 51 mL/hr NaCl 0.9% IVPB (AQUA-MEPHYTON) 10 mg, intravenous, at 51 mL/hr, Administer over 60 Minutes, Daily, First dose on Wed03/14/21 at 1045, For 3 doses, Protect from light. New Bag 03/15/2021 9:18 AM OFFICE SUPPORT ASSISTANT 10 mg 51 mL/hr New Bag 03/14/2021 11:34 AM OFFICE SUPPORT ASSISTANT 10 mg 51 mL/hr phytonadione (vitamin K1) 10 mg in New Bag 03/16/2021 8:15 AM OFFICE SUPPORT ASSISTANT 10 mg 51 mL/hr NaCl 0.9% IVPB (AQUA-MEPHYTON) 10 mg, intravenous, at 51 mL/hr, Administer over 60 Minutes, Once, On 03/16/21 at 0800, For 1 dose, Protect from light. phytonadione (vitamin K1) tablet 10 mg Given 03/23/2021 11:11 AM OFFICE SUPPORT ASSISTANT 10 mg (MEPHYTON) 10 mg, oral, Once, On 03/23/21 at 1045, For 1 dose phytonadione (vitamin K1) tablet 5 mg Given 03/21/2021 8:[address] 5 mg (MEPHYTON) 5 mg, oral, Daily, First dose on Wed03/19/21 at 1300, For 3 doses Given 03/20/2021 10:15 AM OFFICE SUPPORT ASSISTANT 5 mg Given 03/19/2021 1:56 PM OFFICE SUPPORT ASSISTANT 5 mg phytonadione (vitamin K1) tablet 5 mg Given 03/22/2021 10:22 AM OFFICE SUPPORT ASSISTANT 5 mg (MEPHYTON) 5 mg, oral, Daily, First dose (after last reorder) on 03/22/21 at 0900, For 3 doses piperacillin-tazobactam in dextrose New Bag 03/13/2021 5:34 AM OFFICE SUPPORT ASSISTANT 3.375 g 100 mL/hr (iso-osm) IVPB 3.375 g (ZOSYN) 3.375 g, intravenous, at 100 mL/hr, Administer over 0.5 Hours, Every 6 hours scheduled, First dose on Wed03/12/21 at 0815, Drug Monitoring Program: Pharmacist to adjust medication dosing based on indication and drug clearance factors., Indications: Intra-abdominal infection, community acquired New Bag 03/12/2021 11:36 PM OFFICE SUPPORT ASSISTANT 3.375 g 100 mL/hr New Bag 03/12/2021 6:14 PM OFFICE SUPPORT ASSISTANT 3.375 g 100 mL/hr piperacillin-tazobactam in dextrose New Bag 03/17/2021 11:49 P M 3.375 g 100 mL/hr (iso-osm) IVPB 3.375 g (ZOSYN) OFFICE SUPPORT ASSISTANT 3.375 g, intravenous, at 100 mL/hr, Administer over 0.5 Hours, Every 6 hours scheduled, First dose (after last modification) on Luz Marina 03/13/21 at 1200, For 19 doses, Drug Monitoring Program: Pharmacist to adjust medication dosing based on indication and drug clearance factors., Indications: Intra-abdominal infection, community acquired New Bag 03/17/2021 6:25 PM OFFICE SUPPORT ASSISTANT 3.375 g 100 mL/hr New Bag 03/17/2021 1:09 PM OFFICE SUPPORT ASSISTANT 3.375 g 100 mL/hr potassium chloride ER [...] tablet 40 mEq Given 03/22/2021 4:19 PM OFFICE SUPPORT ASSISTANT 40 mEq (KLORCON/K-TAB) 40 mEq, oral, Once, On 03/22/21 at 1415, For 1 dose, Swallow whole. Do NOT crush, chew, or split tablet. potassium chloride ER tablet 40 mEq Given 03/23/2021 8:09 AM OFFICE SUPPORT ASSISTANT 40 mEq (KLORCON/K-TAB) 40 mEq, oral, Once, [...] 10 mEq New Bag 03/12/2021 9:15 AM OFFICE SUPPORT ASSISTANT 10 mEq 100 mL/hr 10 mEq, intravenous, at 100 mL/hr, Administer over 60 Minutes, Every 1 hour, First dose on Wed03/12/21 at 0715, For 2 doses, Peripheral Line: 10 mEq per bag over 1 hour each. New Bag 03/12/2021 8:03 AM OFFICE SUPPORT ASSISTANT 10 mEq 100 mL/hr potassium chloride IVPB 10 mEq New Bag 03/14/2021 9:16 AM OFFICE SUPPORT ASSISTANT 10 mEq 100 mL/hr 10 mEq, intravenous, at 100 mL/hr, Administer over 60 Minutes, Every 1 hour, First dose on Wed03/14/21 at 0730, For 3 doses, Peripheral Line: 10 mEq per bag over 1 hour each. New Bag 03/14/2021 9:13 AM OFFICE SUPPORT ASSISTANT 10 mEq 100 mL/hr New Bag 03/14/2021 8:10 AM OFFICE SUPPORT ASSISTANT 10 mEq 100 mL/hr potassium chloride IVPB 10 mEq New Bag 03/18/2021 4:59 PM OFFICE SUPPORT ASSISTANT 10 mEq 100 mL/hr 10 mEq, intravenous, at 100 mL/hr, Administer over 60 Minutes, Every 1 hour, First dose on Wed03/18/21 at 1200, For 4 doses, Peripheral Line: 10 mEq per bag over 1 hour each. New Bag 03/18/2021 3:41 PM OFFICE SUPPORT ASSISTANT 10 mEq 100 mL/hr New 03/18/2021 2:28 PM OFFICE SUPPORT ASSISTANT 10 mEq 100 mL/hr potassium chloride IVPB 20 mEq in New Bag 03/12/2021 9:[address] 20 mEq 100 mL/hr 100 mL (premix) 20 mEq, intravenous, at 100 mL/hr, Administer over 60 Minutes, Every 1 hour, First dose on Wed03/12/21 at 1900, For 3 doses, Central Line with Telemetry: 20 mEq per bag over 1 hour each. New 03/12/2021 8:08 PM OFFICE SUPPORT ASSISTANT 20 mEq 100 mL/hr New 03/12/2021 6:57 PM OFFICE SUPPORT ASSISTANT 20 mEq 100 mL/hr potassium chloride IVPB 20 mEq in New Bag 03/13/2021 3:[address] 20 mEq 100 mL/hr 100 mL (premix) 20 mEq, intravenous, at 100 mL/hr, Administer over 60 Minutes, Every 1 hour, First dose on Wed03/13/21 at 0300, For 2 doses, Central Line with Telemetry: 20 mEq per bag over 1 hour each. New Bag 03/13/2021 2:13 AM OFFICE SUPPORT ASSISTANT 20 mEq 100 mL/hr potassium chloride IVPB 20 mEq in New Bag 03/15/2021 8:[address] 20 mEq 100 mL/hr 100 mL (premix) 20 mEq, intravenous, at 100 mL/hr, Administer over 60 Minutes, Every 1 hour, First dose on Wed03/15/21 at 0600, For 4 doses, Central Line with Telemetry: 20 mEq per bag over 1 hour each. New Bag 03/15/2021 7:26 AM OFFICE SUPPORT ASSISTANT 20 mEq 100 mL/hr New Bag 03/15/2021 6:28 AM OFFICE SUPPORT ASSISTANT 20 mEq 100 mL/hr potassium chloride IVPB 20 mEq in New Bag 03/15/2021 7:[address] 20 mEq 100 mL/hr 100 mL (premix) 20 mEq, intravenous, at 100 mL/hr, Administer over 60 Minutes, Every 1 hour, First dose on 03/15/21 at 1700, For 3 doses, For K 3.0-3.2 mEq/L - give total of 60 mEq, Monitor the following for replacement: Potassium, Replace Potassium per: Standard Schedule New Bag 03/15/2021 6:08 PM OFFICE SUPPORT ASSISTANT 20 mEq 100 mL/hr New Bag 03/15/2021 5:03 PM OFFICE SUPPORT ASSISTANT 20 mEq 100 mL/hr potassium chloride IVPB [...] mEq (KLOR-C ON) Given 03/13/2021 2:13 AM OFFICE SUPPORT ASSISTANT 40 mEq 40 mEq, oral, Once, On Luz Marina 03/13/21 at 0215, For 1 dose, Dissolve one packet in 4-5 ounces of water or other beverage prior to administration. potassium phosphate in NaCl Rate/Dose Verify 03/15/2021 7:00 AM OFFICE SUPPORT ASSISTANT 83.3 mL/hr 0.9% IVPB 15 mmol 15 mmol, intravenous, at 83.3 mL/hr, Administer over 3 Hours, Once, On 03/15/21 at 0600, For 1 dose New Bag 03/15/2021 6:11 AM OFFICE SUPPORT ASSISTANT 15 mmol 83.3 mL/hr potassium phosphate in NaCl Rate/Dose Verify 03/15/2021 8:00 PM OFFICE SUPPORT ASSISTANT 83.3 mL/hr 0.9% IVPB 15 mmol 15 mmol (rounded from 13.55 mmol = 0.25 mmol/kg ? 54.2 kg Dosing weight), intravenous, at 83.3 mL/hr, Administer over 3 Hours, Once, On 03/15/21 at 1800, For 1 dose, Monitor the following for replacement: Phosphorus New Bag 03/15/2021 6:17 PM OFFICE SUPPORT ASSISTANT 15 mmol 83.3 mL/hr potassium phosphate in NaCl Rate/Dose Verify 03/16/2021 9:00 AM OFFICE SUPPORT ASSISTANT 83.3 mL/hr 0.9% IVPB 15 mmol 15 mmol, intravenous, at 83.3 mL/hr, Administer over 3 Hours, Every 3 hours, First dose (after last modification) on Wed03/16/21 at 0500, For 2 doses New Bag 03/16/2021 8:13 AM OFFICE SUPPORT ASSISTANT 15 mmol 83.3 mL/hr Rate/Dose Verify 03/16/2021 8:00 AM OFFICE SUPPORT ASSISTANT 83.3 mL/hr potassium phosphates 30 mmol in New Bag 03/12/2021 10:50 AM CS T 30 mmol 85 mL/hr NaCl 0.9% IVPB 30 mmol, intravenous, at 85 mL/hr, Administer over 6 Hours, Once, On Wed03/12/21 at 0715, For 1 dose, Peripheral or central line. [id number] [id number] mg Given 2020 9:40 PM OFFICE SUPPORT ASSISTANT 2 packets per packet 2 packet (PHOS-NAK) 2 packet, oral, Every 4 hours while awake, First dose on Wed03/19/21 at 1000, For 4 doses, Monitor the following for replacement: Phosphorus Given 03/19/2021 5:57 PM OFFICE SUPPORT ASSISTANT 2 packets Given 03/19/2021 3:09 PM OFFICE SUPPORT ASSISTANT 2 packets propofoL (DIPRIVAN) 10 mg/mL injection - ADS Override Pull Starting on Wed03/12/21 at 0923, For 1 dose, Created by cabinet override propofol 10 mg/mL Rate/Dose Verify 03/14/2021 6:00 25 mcg/kg/min 8.13 mL/hr infusion (DIPRIVAN) AM OFFICE SUPPORT ASSISTANT 5-80 mcg/kg/min ? 54.2 kg Dosing weight (1.626-26.016 mL/hr, rounded to 1.63-26.02 mL/hr), intravenous, Continuous, Starting on Wed03/12/21 at 1100, Type: Titrate, Initiate at: 5 mcg/kg/min., Titrate at: 5 mcg/kg/min. every 5 min., Goal: Other, Goal: RASS -2 Rate/Dose Change 03/14/2021 4:50 AM OFFICE SUPPORT ASSISTANT 25 mcg/kg/min 8.13 mL/hr Rate/Dose Verify 03/14/2021 4:00 AM OFFICE SUPPORT ASSISTANT 30.012 mcg/kg/min 9.76 mL/h r propofoL injection (DIPRIVAN) Given 03/12/2021 9:45 AM OFFICE SUPPORT ASSISTANT 30 mg intravenous, Code/trauma/sedation medication, Starting on Wed03/12/21 at 0945 propofoL injection (DIPRIVAN) Given 03/12/2021 9:46 AM OFFICE SUPPORT ASSISTANT 30 mg intravenous, Code/trauma/sedation medication, Starting on Wed03/12/21 at 0946 rifAXIMin tablet 550 mg (XIFAXAN) Given 03/24/2021 8:52 AM OFFICE SUPPORT ASSISTANT 550 mg 550 mg, oral, 2 times daily, First dose on Luz Marina 03/13/21 at 0900, Indications: Prophylaxis, medical Given 03/23/2021 9:49 PM OFFICE SUPPORT ASSISTANT 550 mg Given 03/23/2021 8:10 AM OFFICE SUPPORT ASSISTANT 550 mg rocuronium injection (ZEMURON) Given 03/12/2021 9:45 AM OFFICE SUPPORT ASSISTANT 70 mg Code/trauma/sedation medication, Starting on Wed03/12/21 at 0945 sodium bicarbonate tablet 650 mg Given 03/23/2021 8:10 AM OFFICE SUPPORT ASSISTANT 650 mg 650 mg, oral, 3 times daily, First dose on Wed03/19/21 at 1400 Given 03/22/2021 10:49 PM OFFICE SUPPORT ASSISTANT 650 mg Given 03/22/2021 3:05 PM OFFICE SUPPORT ASSISTANT 650 mg sodium bicarbonate tablet 650 mg Given 03/24/2021 8:53 AM OFFICE SUPPORT ASSISTANT 650 mg 650 mg, oral, 4 times daily, First dose (after last modification) on 03/23/21 at 1700 Given 03/23/2021 9:49 PM OFFICE SUPPORT ASSISTANT 650 mg Given 03/23/2021 5:38 PM OFFICE SUPPORT ASSISTANT 650 mg sodium chloride 0.9 % flush 100 mL Given 03/12/2021 1:47 PM OFFICE SUPPORT ASSISTANT 100 mL 100 mL, intravenous, Once in imaging, line care, needed for CT, Starting on Wed03/12/21 at 1346, For 1 dose sodium chloride 0.9 % flush 100 mL Given 03/16/2021 2:37 AM OFFICE SUPPORT ASSISTANT 100 mL 100 mL, intravenous, Once in imaging, line care, for CT exam, Starting on Wed03/16/21 at 0230, For 1 dose sodium chloride 0.9 % injection 10 mL Given 03/12/2021 1:46 PM OFFICE SUPPORT ASSISTANT 10 mL 10 mL, intravenous, Once in imaging, line care, Starting on Wed03/12/21 at 1346, For 1 dose sodium chloride 0.9 % injection 10 mL Given 03/17/2021 6:48 AM OFFICE SUPPORT ASSISTANT 10 mL 10 mL, intravenous, As needed, line care, Central Venous Catheter (CVC) Non-Tunneled Non-Valved, Starting on Wed03/12/21 at 1706, Prior to blood sampling, post blood transfusion or post blood sampling. Given 03/17/2021 12:12 AM OFFICE SUPPORT ASSISTANT 10 mL sodium chloride 0.9 % injection 10 mL Given 03/16/2021 2:36 AM OFFICE SUPPORT ASSISTANT 10 mL 10 mL, intravenous, Once in [...] injection 5-15 mL Given 03/23/2021 9:51 PM OFFICE SUPPORT ASSISTANT 10 mL 5-15 mL, intravenous, Every 12 hours scheduled, First dose on Wed03/12/21 at 2100, Central Venous Catheter (CVC) Non-Tunneled Non-Valved: When no infusion to maintain patency. Flush 5 mL per lumen. Given 03/23/2021 8:10 AM OFFICE SUPPORT ASSISTANT 10 mL Given 03/22/2021 10:51 PM OFFICE SUPPORT ASSISTANT 10 mL spironolactone tablet 50 mg (ALDACTONE) Given 03/24/2021 8:52 AM OFFICE SUPPORT ASSISTANT 50 mg 50 mg, oral, Daily, First dose on Luz Marina 03/20/21 at 0900 Given 03/23/2021 8:10 AM OFFICE SUPPORT ASSISTANT 50 mg Given 03/22/2021 10:22 AM OFFICE SUPPORT ASSISTANT 50 mg thiamine tablet 100 mg (VITAMIN B1) Given 03/24/2021 8:52 AM OFFICE SUPPORT ASSISTANT 100 mg 100 mg, oral, Daily, First dose on Luz Marina 03/13/21 at 1230 Given 03/23/2021 8:10 AM OFFICE SUPPORT ASSISTANT 100 mg Given 03/22/2021 10:22 AM OFFICE SUPPORT ASSISTANT 100 mg vancomycin 1,000 mg in NaCl [...] mL/hr in NaCl 0.9% 100 mL AM OFFICE SUPPORT ASSISTANT infusion (PITRESSIN) 0.04 Units/min (12 mL/hr), intravenous, Continuous, Starting on Wed03/12/21 at 1245 New Bag 03/15/2021 10:06 AM OFFICE SUPPORT ASSISTANT 0.04 Units/min 12 mL/hr Rate/Dose Verify 03/15/2021 10:00 AM OFFICE SUPPORT ASSISTANT 0.04 Units/min 12 mL/hr documented in this encounter Active and Recently Administered Medications Times are shown in OFFICE SUPPORT ASSISTANT. Scheduled Medication Order 03/22/2021 03/23/2021 03/24/2021 ciprofloxacin tablet 500 mg (CIPRO) 0702 (Given - Prov ider: Nola Frederick) 0634 (Given - Provider: Lisa Stinson R.N.) 0618 (G iven - Provider: Bernardo Rosario [...] R.N.) 0852 (Given - Provider: Hope Guerrier R.NSuma) 1 mg, oral, Daily, First dose on [...] Provider: Hope Guerrier R.N.)2149 (Given - Provider: Andrew BaronNSuma) 0852 (Given - Provider: Hope Guerrier R.N.) [...] ( New Bag - Provider: Carol Rodriguez RSumaNSuma) 2 g, intravenous, at 25 mL/hr, Administe r over 120 Minutes, Once, On 03/22/21 at 1530, For 1 dose melatonin tablet 6 mg 0048 (Given - Provider: Monica Frederick - Comment: patient requested to wait until later) 0019 (Given - Provider: Lisa Stinson RGabby - Comment: per patient request)2149 (Given - Provider: Bernardo Rosario RSumaNSmua) 6 mg, oral, Daily at bedtime, First [...] phytonadione (vitamin K1) tablet 5 mg (MEPHYTON) (CANC ELED) 102 (Given - Provider: Julissa Villafuerte R.N.) 5 [...] Bernardo Rosario R.N.) 0852 (Given - Provider: Andrew AndersonNSuma) 550 mg, oral, 2 times daily, First dose on Wed03/13/21 at 0900, Indications: Prophylaxis, medical sodium bicarbonate tablet 650 mg (CANCELED) 1022 (Give n - Provider: Julissa Villafuerte R.N.)1505 (Given - Provider: Julissa Villafuerte R.N.)2249 (Given - Provider: Carol Rodriguez R.N.) 0810 (Given - Provider: Andrew AndersonNSuma) 650 mg, oral, 3 times daily, First dose on Wed03/19/21 at 1400 sodium bicarbonate tablet 650 mg 1738 (G iven - Provider: Hope Guerrier R.N.)214 (Given - Provider: Bernardo Rosario RSumaNSuma) 0853 (Given - Provider: Hope Guerrier R.N.)1200 (Due) 650 mg, oral, 4 times daily, First dose (after last modification) on Wed03/23/21 at 1700 sodium chloride 0.9 % injection 5-15 mL 1030 (Given - Provider: Julissa Villafuerte R.N.)2251 (Given - Provider: Carol Rodriguez R.N.) 0810 (Given - Provider: Hope Guerrier R.N.)215 (Given - Provider: Bernardo Rosario RSumaNSuma) 0853 [...] (G iven - Provider: Hope Guerrier R.N.) 100 [...] on Wed03/22/21 at 0354, For 1 dose sodium chloride [...] COVID19 Pending 03/12/2021 03/12/2021 03/12/2021 7:32 PM OFFICE SUPPORT ASSISTANT documented as of this encounter Care Teams Computerized Machine Fabric Cutter Relationship Specialty Start Date End Date Elsewhere, Pcp PCP - General Family Medicine 03/10/20 11/30/21 Ervin Schroeder MD Referring Provider Family Medicine 03/24/[address] [place] [address] documented as of this encounter
--- OUTSIDE RECORDS SUMMARY | 2022-02-12 20:36 | XMS_ITS | Encounter Summary ---
:1990 [address] [facility] Address [address] [place] [address] Care Team Providers Name Role Phone Elsewhere, Pcp Primary Care Provider Unavailable Reason for Visit Reason Onset Date Comments Outpatient COVID-19 Testing 03/10/2020 Encounter Details Date Type Department Care Team Description 03/10/2020 External Outreach Department of Pedro Evans Infect ion Upper Internal Medicine in J, D.O. Respiratory (Primary [place], [place] [address] Dx) [address] [place], [place] [phone] Social History Tobacco Use Types Packs/Day Years [...] you attend sabianist or Patient refused 2021 muslim services? 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 - 03/10/2020 3:17 PM CST Encounter created for the drive-through COVID-19 testing. DECORATOR documented in this encounter Plan of Treatment Upcoming Encounters Date Type Specialty Care Team Description Telemedicine Transplant 2 Appointment Radiology Matthew Jerome 2 YTyrell, Lilian [address] [place] [phone] Appointment Gastroenterology and Adrianne, 2 Hepatology Yue Burciaga M.D. [address] [place] [phone] Virtual Visit Transplant Matthew Jerome 2 YTyrell, Lilian [address] [place] [address] [phone] Office Visit Gastroenterology and [facility] 2 Hepatology Tyrell Rodriguez M.D. [address] [place] [phone] Appointment Radiology [facility] 2 Tyrell Rodriguez M.D. [address] [place] [phone] Hospital Gastroenterology and [facility] Cirrhos is Alcoholic (HCC) 2 Encounter Hepatology Tyrell Rodriguez M.D. [address] [place] [phone] Anesthesia Event Gastroenterology and Rl, 2 Hepatology Ervin Burgos M.D. [address] [place] [phone] Surgery Gastroenterology and [facility] ESOPHAG OGASTRODUODENOSCOPY 2 Hepatology Tyrell Rodriguez M.D. [address] [place] [phone] Scheduled Procedures Name Priority Associated Diagnoses Date/Time ESOPHAGOGASTRODUODENOSCOPY Cirrhosis Alc oholic (HCC) 03/20/2022 8:45 AM FLAG DECORATOR Hypertension Portal (HCC) documented as of this encounter Procedures Procedure Name Priority Date/Time Associated Diagnosis Comme nts SARS CORONAVIRUS-2 Routine 03/10/2020 4:10 PM Infection Upper Results for this RNA, V FLAG DECORATOR Respiratory procedure are i n the results section. documented in this encounter Results SARS Coronavirus-2 RNA, V Symptomatic (03/10/2020 4:10 PM FLAG DECORATOR) [facility] Method Time Signature SARS-CoV-2 Swab, 03/11/2020 MKTO Specimen Nasopharynx 12:38 PM Source FLAG DECORATOR SARS CoV-2 Undetected Undetected 03/11/2020 ANN RNA, TMA 12:38 PM FLAG DECORATOR Comment: SARS-CoV-2 RNA absent. This result does not rule out COVID-19 in the patient, as the sensitivity of the test depends o n the timing of the specimen collection and the quality of the specim en. Result should be correlated with patient's history and clinical presentat ion. ----ADDITIONAL INFORMATION---- This test is performed using the Aptima SARS-CoV-2 assay ([employer] which has received Emergency Use Authori zation (EUA) by the U.S. Food and Drug Administration. Fact sheets for this Emergency Use Autho rization (EUA) assay can be found at the following links: For Healthcare Providers: https://www.[employer] a.gov/media/059973/download For Patients: https://www.fda.gov/media/ 978750/download Specimen Anatomical Collection Method Collection Time Receive d Time (Source) Location / / Volume Laterality Varies 03/10/2020 4:10 PM 0 (Nasopharynx) FLAG DECORATOR 11:20 PM FLAG DECORATOR Pedro Evans D.O. LAB MICROBIOLOGY - GENERAL O JANERAPREMA Performing Organization Address City/State/ZIP Code Phon e Number [facility]- [address] [place] [address] [place] [address] System in [address] documented in this encounter Visit Diagnoses Diagnosis Infection Upper Respiratory - Primary Cirrhosis Alcoholic (HCC) Cirrhosis Alcoholic (HCC) Hypertension Portal (HCC) documented in this encounter Additional Health Concerns Infection Onset Date Last Indicated Resolved Time COVID19 Pending 03/10/2020 03/10/2020 03/11/2020 12:40 PM FLAG DECORATOR documented as of this encounter Care Teams Skin Former Relationship Specialty Start Date End Date Elsewhere, Pcp PCP - General Family Medicine 03/10/20 11/30/21 documented as of this encounter
--- OUTSIDE RECORDS SUMMARY | 2022-02-12 20:36 | XMS_ITS ---
:1990 Author Organization [facility] Address [address] [place] [address] Care Team Providers Name Role Phone Ana Red P.A.-C. Primary Care Provider Transplant [facility] ([place], [place] - MNMCEvaluation began on 09/26/2021Marked as Deferred on 10/16/2021 Liver CoordinatorTXP PRE LIVER NURSE TEAM 2 ROCHPhone: N/AFax: N/AEmail: N/A Scores Score Value Updated Expires Exceptions/Reas ons CPRA Not available UNOS MELD Not available MELD (Calc) 27 02/12/2022 [place] Organ Diagnosis Organ Primary Contributory Liver Alcoholic Cirrhosis Care Team Name Role Phone Fax Email TXP PRE LIVER Liver Coordinator N/A N/A N/A NURSE TEAM 2 DAYRON Vann, Transplant Surgeon [phone] [email or web address] Matthew Jerome, Referring Provider [phone] [email or web address] Lilian Santillan Transplant Computer Installation Engineer du Events Pre-Transplant Referred: 08/14/2021 Evaluation began: 09/26/2021 Committee: 10/15/2021
--- OUTSIDE RECORDS SUMMARY | 2022-02-12 20:36 | XMS_ITS | Encounter Summary ---
:1990 Author Organization [facility] Address [address] [place] [address] Care Team Providers Name Role Phone Elsewhere, Pcp Primary Care Provider Unavailable Encounter Details Date Type Department Care Team Description 03/10/2020 Admin Visit Department of Family Medicine, [address] [address] [facility] [phone] Social History Tobacco Use Types Packs/Day Years [...] attend latter day or Patient refused 2021 moravian services? 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 [address] [place] [phone] Virtual Visit Transplant Matthew Jerome 2 Tyrell Rodriguez, Lilian [address] [place] [phone] Office Visit Gastroenterology and Matthew Jerome 2 Hepatology Tyrell Rodriguez M.D. [address] [place] [address] [phone] Appointment Radiology Matthew Jerome 2, M.B.B.S., M.D. [address] [place] [phone] Hospital Gastroenterology and Matthew Jerome Cirrhos is Alcoholic (HCC) 2 Encounter Hepatology Tyrell Rodriguez M.D. [address] [place] [phone] Anesthesia Event Gastroenterology and Rl, 2 Hepatology Ervin Burgos M.D. [address] [place] [address] [phone] Surgery Gastroenterology and Mousa, Matthew ESOPHAG OGASTRODUODENOSCOPY 2 Hepatology Tyrell Rodriguez M.D. [address] [place] [address] [phone] Scheduled Procedures Name Priority Associated Diagnoses Date/Time ESOPHAGOGASTRODUODENOSCOPY Cirrhosis Alc oholic (HCC) 03/20/2022 8:45 AM MAXILLOFACIAL SURGEON Hypertension Portal (HCC) documented as of this encounter Visit Diagnoses Not on filedocumented in this encounter Additional Health Concerns Infection Onset Date Last Indicated Resolved Time COVID19 Pending 03/10/2020 03/10/2020 03/11/2020 12:40 PM MAXILLOFACIAL SURGEON documented as of this encounter Care Teams Mechanical Car Checker Relationship Specialty Start Date End Date Elsewhere, Pcp PCP - General Family Medicine 03/10/20 11/30/21 documented as of this encounter
--- OUTSIDE RECORDS SUMMARY | 2022-02-12 20:36 | XMS_ITS | Encounter Summary ---
:1990 Author Organization [facility] Address [address] [place] [address] Care Team Providers Name Role Phone Elsewhere, [...] you attend orthodoxy or Patient refused 2021 yazdanism services? Do [...] at Date Recorded Female 04/12/2021 7:39 PM SIGN LANGUAGE INSTRUCTOR documented as of this encounter Plan of Treatment Upcoming Encounters Date Type Specialty Care Team Description Telemedicine Transplant 2 Appointment Radiology LuisNew abdular 2 YTyrell M.D. [address] [place] [address] [phone] Appointment Gastroenterology and Adrianne, 2 Hepatology Yue Burciaga M.D. [address] [place] [phone] Virtual Visit Transplant LuisNew abdular 2 Tyrell Rodriguez M.D. [address] [place] [phone] Office Visit Gastroenterology and Queenie Matthew 2 Hepatology Tyrell Rodriguez M.D. [address] [place] [address] [phone] Appointment Radiology Matthew Jerome 2 YTyrell M.D. [address] [place] [phone] Hospital Gastroenterology and QueenieMatthew Cirrhos is Alcoholic (HCC) 2 Encounter Hepatology Vik RodriguezBLilian Bedolla [address] [place] [address] [phone] Anesthesia Event Gastroenterology and Rl, 2 Hepatology Ervin Burgos M.D. [address] [place] [address] [phone] Surgery Gastroenterology and Mousa, Matthew ESOPHAG OGASTRODUODENOSCOPY 2 Hepatology Tyrell Rodriguez M.D. [address] [place] [address] [phone] Scheduled Procedures Name Priority Associated Diagnoses Date/Time ESOPHAGOGASTRODUODENOSCOPY Cirrhosis Alc oholic (HCC) 03/20/2022 8:45 AM SIGN LANGUAGE INSTRUCTOR Hypertension Portal (HCC) documented as of this encounter Procedures Procedure Name Priority Date/Time Associated Diagnosis Comme nts GENERAL SURGERY Routine 03/12/2021 11:00 AM Resul ts for this IMAGE EXAM SIGN LANGUAGE INSTRUCTOR procedure are i n the results section. documented in this encounter Results Non-Radiology Image-General Surgery Image Exam (03/12/2021 11:00 AM SIGN LANGUAGE INSTRUCTOR) Specimen (Source) Anatomical Location Collection Method / Collectio n Time Received Time / Laterality Volume Narrative IIMS - 03/13/2021 6:34 PM SIGN LANGUAGE INSTRUCTOR This order has been created and auto-finalized [...] COVID19 Pending 03/12/2021 03/12/2021 03/12/2021 7:32 PM SIGN LANGUAGE INSTRUCTOR documented as of this encounter Care Teams Director Of Human Resources Relationship Specialty Start Date End Date Elsewhere, Pcp PCP - General Family Medicine 03/10/20 11/30/21 documented as of this encounter
--- OUTSIDE RECORDS SUMMARY | 2022-02-12 20:36 | XMS_ITS | Encounter Summary ---
:1990 Author Organization [facility] Address [address] [place] [address] Care Team Providers Name Role Phone Elsewhere, Pcp Primary Care Provider Unavailable Reason for Visit Reason Onset Date Comments Outpatient COVID-19 Testing 07/21/2020 Encounter Details Date Type Department Care Team Description 07/21/2020 External Outreach Department of Pedro Evans And Internal Medicine in J, D.O. (Suspected) Exposure [place], [place] [address] To COVID-19 (Primary [address] [place], [place] Dx) [place] [phone] Social History Tobacco Use Types Packs/Day Years [...] you attend temple or Patient refused 2021 yazidi services? 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 [address] [place] [phone] Appointment Gastroenterology and Adrianne, 2 Hepatology Yue Burciaga M.D. [address] [place] [phone] Virtual Visit Transplant Matthew Jerome 2 Tyrell Rodriguez M.D. [address] [place] [phone] Office Visit Gastroenterology and Matthew Jerome 2 Hepatology Tyrell Rodriguez M.D. [address] [place] [phone] Appointment Radiology LuisMatthew abdul 2 Tyrell Rodriguez M.D. [address] [place] [phone] Hospital Gastroenterology and Matthew Jerome Cirrhos is Alcoholic (HCC) 2 Encounter Hepatology Tyrell Rodriguez M.D. [address] [place] [phone] Anesthesia Event Gastroenterology and Rl, 2 Hepatology Ervin Burgos M.D. [address] [place] [phone] Surgery Gastroenterology and Matthew Jerome ESOPHAG OGASTRODUODENOSCOPY 2 Hepatology Tyrell Rodriguez M.D. [address] [place] [phone] Scheduled Procedures Name Priority Associated Diagnoses Date/Time ESOPHAGOGASTRODUODENOSCOPY Cirrhosis Alc oholic (HCC) 03/20/2022 8:45 AM SUPERVISOR PAPER TESTING Hypertension Portal (HCC) documented as of this encounter Visit Diagnoses Diagnosis Contact With And (Suspected) Exposure To COVID-19 - Primary Cirrhosis Alcoholic (HCC) Cirrhosis Alcoholic (HCC) Hypertension Portal (HCC) documented in this encounter Additional Health Concerns Infection Onset Date Last Indicated Resolved Time COVID19 Pending 07/21/2020 07/21/2020 07/22/2020 12:06 PM CDT documented as of this encounter Care Teams Supervisor Plastics Relationship Specialty Start Date End Date Elsewhere, Pcp PCP - General Family Medicine 03/10/20 11/30/21 documented as of this encounter
--- OUTSIDE RECORDS SUMMARY | 2022-02-12 20:36 | XMS_ITS | Encounter Summary ---
:1990 Author Organization [facility] Address [address] [place] [address] Care Team Providers Name Role Phone Elsewhere, Pcp Primary Care Provider Unavailable Encounter Details Date Type Department Care Team Description 08/27/2020 Orders Only [facility] PCP [facility] Sa yoav Trujillo M.D. [address] [place], [place] [phone] (Wo rk) Social History [...] you attend jewish or Patient refused 2021 mandaeism services? Do [...] at Date Recorded Female 04/12/2021 7:39 PM JACKER documented as of this encounter Plan of Treatment Upcoming Encounters Date Type Specialty Care Team Description Telemedicine Transplant 2 Appointment Radiology Matthew Jerome 2 Tyrell Rodriguez, Lilian [address] [place] [phone] Appointment Gastroenterology and Adrianne, 2 Hepatology Yue Burciaga M.D. [address] [place] [phone] Virtual Visit Transplant Matthew Jerome 2 Vik RodriguezBGraeme, Lilian [address] [place] [phone] Office Visit Gastroenterology and Matthew Jerome 2 Hepatology Vik RodriguezBGraeme, Lilian [address] [place] [phone] Appointment Radiology Matthew Jerome 2 YVikBGraeme, Lilian [address] [place] [phone] Hospital Gastroenterology and [facility] Cirrhos is Alcoholic (HCC) 2 Encounter Hepatology Tyrell Rodriguez M.D. [address] [place] [address] [phone] Anesthesia Event Gastroenterology and Rl, 2 Hepatology Ervin Burgos M.D. [address] [place] [address] [phone] Surgery Gastroenterology and [facility] ESOPHAG OGASTRODUODENOSCOPY 2 Hepatology Tyrell Rodriguez M.D. [address] [place] [address] [phone] Scheduled Procedures Name Priority Associated Diagnoses Date/Time ESOPHAGOGASTRODUODENOSCOPY Cirrhosis Alc oholic (HCC) 03/20/2022 8:45 AM JACKER Hypertension Portal (HCC) documented as of this encounter Visit Diagnoses Not on filedocumented in this encounter Care Teams Change Control Manager Relationship Specialty Start Date End Date Elsewhere, Pcp PCP - General Family Medicine 03/10/20 11/30/21 documented as of this encounter
--- OUTSIDE RECORDS SUMMARY | 2022-02-12 20:36 | XMS_ITS | Encounter Summary ---
:1990 Author Organization [facility] Address [address] [place] [address] Care Team Providers Name Role Phone Elsewhere, Pcp Primary Care Provider Unavailable Reason for Visit Reason Comments Communication Encounter Details Date Type Department Care Team Description 07/12/2020 Clinical Communication Department of [facility], Pcp Communication Medicine, [facility], in [place], [place] [address] [phone] Social History Tobacco Use Types Packs/Day Years [...] you attend yazdanism or Patient refused 2021 hindu services? Do [...] Date Recorded Female 04/12/2021 7:39 PM CLINICAL THERAPIST documented as of this encounter Miscellaneous [...] or daycare Select appropriate regional recommendations: : [facility]- COVID only testing recommended (End Screening) Plan: Endpoint recommendation: Testing indicated, advised to be swabbed for COVID-19 Only , sent to [facility] located at [address] [place] [address]. The entrance is on the north side of the building. You must call [phone] during the hours of 7am to 6 [...] sending patient for testing in [facility] or [facility], route encounter to the correct testing pool. ICAL THERAPIST documented in this encounter Plan of Treatment Upcoming Encounters Date Type Specialty Care Team Description Telemedicine Transplant 2 Appointment Radiology Matthew Jerome 2 Tyrell Rodriguez M.D. [address] [place] [address] [phone] Appointment Gastroenterology demian Silver 2 Hepatology Yue Burciaga M.D. [address] [place] [phone] Virtual Visit Transplant Matthew Jerome 2 YTyrell M.D. [address] [place] [phone] Office Visit Gastroenterology and Matthew Jerome 2 Hepatology Tyrell Rodriguez M.D. [address] [place] [address] [phone] Appointment Radiology Matthew Jerome 2 YTyrell M.D. [address] [place] [address] [phone] Hospital Gastroenterology and Matthew Jerome Cirrhos is Alcoholic (HCC) 2 Encounter Hepatology Tyrell Rodriguez M.D. [address] [place] [address] [phone] Anesthesia Event Gastroenterology and Rl, [place] Hepatology Ervin Burgos M.D. [facility] [place] [phone] Surgery Gastroenterology and Mousa, Matthew ESOPHAG OGASTRODUODENOSCOPY 2 Hepatology Tyrell Rodriguez M.D. [address] [place] [address] [phone] Scheduled Procedures Name Priority Associated Diagnoses Date/Time ESOPHAGOGASTRODUODENOSCOPY Cirrhosis Alc oholic (HCC) 03/20/2022 8:45 AM CLINICAL THERAPIST Hypertension Portal (HCC) documented as of this encounter Visit Diagnoses Not on filedocumented in this encounter Care Teams Compliance Coordinator Relationship Specialty Start Date End Date Elsewhere, Pcp PCP - General Family Medicine 03/10/20 11/30/21 documented as of this encounter
--- OUTSIDE RECORDS SUMMARY | 2022-02-12 20:37 | XMS_ITS | Encounter Summary ---
:1990 Author Care Team Providers Name Role Phone Ervin Schroeder MD Primary Care Provider [phone] [facility] OTHER [phone] Parris Knight (Mother) Patient Designee [phone] Jairo Rodriguez GYMNASTIC COACH Nurse Practitioner [phone] Matthew Rollins MD Transplant Frame Runner [phone] [facility] Care Team Palliative Care [phone] Taylor Paul RN Palliative Care [phone] Zenobia Kirby [facility] Digital Media Buyer [phone] Reason for Visit JAN Continuation of Care [...] Inhale 1 each as needed. Med Name: D2S ada Cannabis Flower, smoking once weekly as [...] Code Code System Name Reaction Severity Onset 35977 RxNorm Azithromycin ? ? ? Problems Name [...] Status Unknown. Past Encounters 12/01/2021 Jairo Rodriguez TUFTER HAND: [address] [place] [phone], Ph. 11/27/2021 Taylor Paul RN: [address] [place] [phone], Ph. 11/05/2021 Jairo Rodriguez TUFTER HAND: [address] [place] [address], Ph. [phone] History of Present Illness Note: <div>provider called 3 times, no answer. </div><div>Asking [facility] to try and reschedule appt. </div><div>No services performed.
</div> Review of Systems None recorded. Physical Exam None recorded.
--- OUTSIDE RECORDS SUMMARY | 2022-02-12 20:37 | XMS_ITS | Encounter Summary ---
:1990 Author Organization [facility] Address [address] [place] [address] Phone Care Team Providers Name Role Phone Unavailable Primary Care Provider Unavailable Reason for Visit Reason Comments Abdominal Pain Encounter Details Date Type Department Care Team Description 07/08/2021 Emergency [facility] Emergency Daniel Doe, Ascites due to Department alcoholic hepatitis [address] [facility] [address] [place], [place] [id number] Social History Tobacco Use Types Packs/Day Years Used Date Smoking Tobacco: Never Assessed Sex Assigned at Date Recorded Not on file COVID-19 Exposure Response Date Recorded In the last 10 days, have you been in contact with No / Unsu re 07/08/2021 9:38 AM PARAPROFESSIONAL INTERPRETER someone who was confirmed or suspected to have Coronavirus/COVID-19? documented as of this encounter Last Filed Vital Signs Vital Sign Reading Time Taken Comments Blood Pressure 114/67 07/08/2021 4:03 PM PARAPROFESSIONAL INTERPRETER Pulse 82 07/08/2021 4:03 PM PARAPROFESSIONAL INTERPRETER Temperature 36.9 ??C (98.5 ??F) 07/08/2021 6:31 AM PARAPROFESSIONAL INTERPRETER Respiratory Rate 16 07/08/2021 4:03 PM PARAPROFESSIONAL INTERPRETER Oxygen Saturation 98% 07/08/2021 4:03 PM PARAPROFESSIONAL INTERPRETER Inhaled Oxygen Concentration - - Weight - [...] was a pleasure caring for you today! PROFESSIONAL INTERPRETER AttachmentsThe following attachments cannot be sent through Care Everywhere. Fluid in the Belly (Ascites) Discharge Instructions (Scottish)documented in this encounter Medications at Time of [...] of alcoholic cirrhosis who was transferred to [facility] ED on 07/08/21 from [place] ED with pain and altered mental status. [...] who has known her for many years. MANAGER SERVICE DESK shows that she most recently filled this on 06/19/21. Patient would also strongly prefer that we prescribe her something for insomnia (something other than melatonin). Do not plan on prescribing pharmacotherapyfor insomnia at this time consider recent altered mental status and complexity of her medical history. Recommended she discuss this further with her PCP and/or liquor blender. ?? Ervin Childs MD, 07/08/2021 4:19 PM [...] doesn't usually do. She [place] [facility] [place] her [place]. Patient stated her mom [...] who has known her for many years. MANAGER SERVICE DESK shows that she most recently filled this [...] Psychosocial History: Lives with her boyfriend in [place], [place]. Denies alcohol use. Denies illicit drug [...] ?? Ervin Childs MD 07/08/2021 15:54 ?? 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 for possible low Hgb. Patient reports [...] 07/08/2021 2:57 PM Emergency Medicine Resident PGY-1 PROFESSIONAL INTERPRETER Grazyna Delgadillo RN - 07/08/2021 1:19 PM CST Initial Utilization review screening completed. Patient appears to be appropriate for INPATIENT based on ammonia 110 I spoke with provider regarding inpt vs obs, advising obs appropriate, order to remain obs Final order/decision will be based upon provider's assessment of patient. Grazyna Delgadillo ED RN Clinical Coordinator Pager: [phone] [employer] PROFESSIONAL INTERPRETER Evon Claros RN - 07/08/2021 1:07 PM CST ED to IP Nursing Handoff Note S (Situation) Reason for Admission: 1. Ascites due to alcoholic hepatitis [facility] Prec[facility]/Isolation: Standard Suspected Infection/Sepsis: No Restraints: None [...] NA RN: Evon Claros RN Extension #: [id number] Daniel Larsen - 07/08/2021 12:04 PM CST Parris Knight, patient's mother, would like an update of her daughters condition. Daniel Guerrero MD - 07/08/2021 7:33 AM CST ED Faculty Attestation and Note Catia Carias 30 y.o. female [id number] FACULTY ATTESTATION I Hiro Doe MD, performed [...] the hospitalist. Their care was signed out [id number] with the oncoming provider Dr. Lindsay. Final Clinical Impression Abdominal pain, unclear etiology Disposition and Plan Final disposition to be determined by oncoming provider Currently planning for admission to [facility] Jessica Moyer MD, 07/08/2021 7:13 AM Emergency Medicine Resident PGY-1 PROFESSIONAL INTERPRETER Analilia Espitia RN - 07/08/2021 7:09 AM CST Pt transferred here from [facility] due to liver failure. Pt has been to multiple EDs in the last few days after running out of pain medication. 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 ULT GALLBLADDER Routine 07/08/2021 12:13 Results for this PM PARAPROFESSIONAL INTERPRETER procedure are i n the results section. ED US STAT 07/08/2021 10:30 Results for this ABDOMINAL/GALLBLADDER AM PARAPROFESSIONAL INTERPRETER proced ure are in the results section. EXTRA TUBE - LAVENDER Routine 07/08/2021 7:28 AM Results for this PARAPROFESSIONAL INTERPRETER procedure are i n the results section. PC FREE STANDING Routine 07/08/2021 7:28 AM Resul ts for this BLOOD DRAW BY PARAPROFESSIONAL INTERPRETER procedure are in VENIPUNCTURE the results section. PC FREE STANDING Routine 07/08/2021 7:28 AM Resul ts for this BLOOD DRAW BY PARAPROFESSIONAL INTERPRETER procedure are in VENIPUNCTURE the results section. PC ELECTROLYTES PANEL STAT 07/08/2021 7:27 AM Results for this PARAPROFESSIONAL INTERPRETER procedure are i n the results section. TC LAB ER STAT STAT 07/08/2021 7:27 AM Results for this URINALYSIS PARAPROFESSIONAL INTERPRETER procedure are i n the results section. PROTHROMBIN (PT) & STAT 07/08/2021 7:27 AM Res ults for this INR PARAPROFESSIONAL INTERPRETER procedure are i n the results section. PC LAB TEST Routine 07/08/2021 7:27 AM Results for this PARAPROFESSIONAL INTERPRETER procedure are i n the results section. PC AMMONIA STAT 07/08/2021 7:27 AM Results f or this PARAPROFESSIONAL INTERPRETER procedure are i n the results section. LIPASE STAT 07/08/2021 7:27 AM Results f or this PARAPROFESSIONAL INTERPRETER procedure are i n the results section. PANEL HEPATIC STAT 07/08/2021 7:27 AM Results for this FUNCTION PARAPROFESSIONAL INTERPRETER procedure are i n the results section. documented in this encounter Results COVID-19 SURVEILLANCE (07/08/2021 1:32 PM PARAPROFESSIONAL INTERPRETER) [facility] Method Time Signature COVID-19 Not Detected Not Detected [facility] Comment: This test was developed and its performa nce characteristics determined by [employer]. This testing, RT-PCR, has been authorized by [...] Laterality Nasopharyngeal Swab 07/08/2021 1:32 07/08 PM PARAPROFESSIONAL INTERPRETER 1:40 PM PARAPROFESSIONAL INTERPRETER Narrative [facility] - 07/08/2021 2:11 PM PARAPROFESSIONAL INTERPRETER Is the patient a healthcare employee: No Is the patient a [facility]) Employee : No Daniel Doe MD LABORATORY Performing Organization Address City/State/ZIP Code Phon e Number [facility] [place] [address] GALLBLADDER (07/08/2021 12:13 PM PARAPROFESSIONAL INTERPRETER) Anatomical Region Laterality Modality Abdomen Ultrasound Specimen (Source) Anatomical Collection Method Collection Time Re ceived Time Location / / Volume Laterality 07/08/2021 12:53 PM PARAPROFESSIONAL INTERPRETER Impressions 07/08/2021 1:17 PM PARAPROFESSIONAL INTERPRETER Impression: Biliary sludge without shadowing gallstones. No sonographic findings to suggest acute cholecystitis. I have personally reviewed the image(s) and initial interpretation, and I agree with the findings as documented by the resident/fellow. Reading Radiologist: Daron Mccurdy Reading Resident: Gerard Webb Narrative 07/08/2021 1:17 PM PARAPROFESSIONAL INTERPRETER Indication: sludge on ED u/s, chronic abd [...] ULT ED US ABDOMINAL/GALLBLADDER (07/08/2021 10:30 AM PARAPROFESSIONAL INTERPRETER) Anatomical Region Laterality Modality Ultrasound Specimen (Source) Anatomical Location Collection Method / Collectio n Time Received Time / Laterality Volume Narrative 07/08/2021 1:12 PM PARAPROFESSIONAL INTERPRETER ED Abdomen/Gallbladder Ultrasound Indications: Abdominal pain Window: [...] CBC WITH PLTS/AUTO DIFF (07/08/2021 7:28 AM PARAPROFESSIONAL INTERPRETER) [facility] Method Time Signature WBC 5.29 4.00 - [facility] 10.00 k/cmm RBC 1.93 (L) 3.90 - [facility] 5.20 m/cmm Hgb 7.0 (AA) 11.5 - [facility] 15.7 g/dL Hematocrit 21.2 (L) 34.0 - [facility] 45.0 % MCV 109.8 (H) 80.0 - [facility] 100.0 fL MCH 36.3 (H) 25.0 - [facility] 32.0 pg MCHC 33.0 31.0 - [facility] 36.0 g/dL RDW 13.7 11.5 - [facility] 14.5 % Plt 74 (L) 150 - 400 [facility] k/cmm MPV 9.7 6.5 - 12.5 [facility] fL Automated Abs 3.54 1.70 - [facility] Neutrophil 6.50 k/cmm Comment: Preliminary ANC, Final Result t o Follow Abs Immature Granulocyte 0.01 0.00 - 0.09 k/cmm [facility] Comment: The Immature Granulocyte Absolu te count contains metamyelocytes and myelocytes. Abs Neutrophil 3.54 1.70 - 6.50 k/cmm [facility] B Abs Lymphocyte 1.21 0.80 - 4.00 k/cmm [facility] B Abs Monocyte 0.40 0.20 - 1.00 k/cmm [facility] Abs Eosinophil 0.10 0.00 - 0.60 k/cmm [facility] B Abs Basophil 0.03 0.00 - 0.20 k/cmm [facility] Orin Cell Slight [facility] Specimen Anatomical Collection Method Collection Time Receive d Time (Source) Location / / Volume Laterality Blood 07/08/2021 7:28 AM 9:32 PARAPROFESSIONAL INTERPRETER AM PARAPROFESSIONAL INTERPRETER Narrative [facility] - 07/08/2021 10:29 AM PARAPROFESSIONAL INTERPRETER Critical value for Hgb called to and julisa d back by Charly Bowman RN in ER A at 07/08/2021 10:29:44 PARAPROFESSIONAL INTERPRETER by Ines Bal Lance . Daniel Doe MD LABORATORY Performing Organization Address City/State/ZIP Code Phon e Number [facility] [place] [address] EXTRA TUBE - LAVENDER (07/08/2021 7:28 AM PARAPROFESSIONAL INTERPRETER) athologist Signature LAVENDER TUBE Stored [facility] Comment: Lavendar (EDTA) tubes collected at [facility] are stored for 3 days from the collection date. Specimen Anatomical Collection Method Collection Time Receive d Time (Source) Location / / Volume Laterality Blood 07/08/2021 7:28 AM 2 7:35 PARAPROFESSIONAL INTERPRETER AM PARAPROFESSIONAL INTERPRETER Narrative [facility] - 07/08/2021 7:35 AM PARAPROFESSIONAL INTERPRETER Ordered by ~[id number] Provider Unknown LABORATORY Performing Organization Address City/[facility]/ZIP Code Phon e Number [facility] [place] [address] EXTRA TUBE - SST (07/08/2021 7:28 AM PARAPROFESSIONAL INTERPRETER) athologist Signature SST TUBE Stored [facility] Comment: SST tubes (Serum Separator) are stored in the lab for 3 days from the collection date. Specimen Anatomical Collection Method Collection Time Receive d Time (Source) Location / / Volume Laterality Blood 07/08/2021 7:28 AM 2 7:35 PARAPROFESSIONAL INTERPRETER AM PARAPROFESSIONAL INTERPRETER Narrative [facility] - 07/08/2021 7:35 AM PARAPROFESSIONAL INTERPRETER Ordered by ~[id number] Provider Unknown LABORATORY Performing Organization Address City/[facility] Phon e Number [facility] [place] [address] TEST URINE (07/08/2021 7:27 AM PARAPROFESSIONAL INTERPRETER) athologist Signature Ur Negative Negative [facility] UPT performed [facility] at Comment: Test performed by: [facility] ED Clinical Laboratory R1.[address] [place] [id number] Specimen Anatomical Collection Method Collection Time Receive d Time (Source) Location / / Volume Laterality Urine 07/08/2021 7:27 AM 2 PARAPROFESSIONAL INTERPRETER 10:53 AM PARAPROFESSIONAL INTERPRETER Daniel Doe MD LABORATORY Performing Organization Address City/[facility]/ZIP [facility] Phon e Number [facility] [place] [address] (ABNORMAL) URINALYSIS,TOTAL (07/08/2021 7:27 AM PARAPROFESSIONAL INTERPRETER) [facility] gist Method Time Signature Color YELLOW YELLOW [facility] Appearance CLEAR CLEAR [facility] Urine Glucose NEGATIVE NEGATIVE [facility] mg/dL Bili UA TRACE (A) NEGATIVE [facility] Ketones NEGATIVE NEGATIVE [facility] mg/dL Specific [place] 1.024 1.003 - [facility] 1.030 Blood Ur NEGATIVE Neg-Trace [facility] PH Urine 6.5 5.0 - 7.0 [facility] Protein Ur TRACE Neg-Trace [facility] mg/dL Urobilinogen NORMAL NORMAL EU/dL [facility] Nitrite Ur NEGATIVE NEGATIVE [facility] Leuk Est NEGATIVE Neg-Trace [facility] WBC Ur 0-5 0 - 5 perHPF [facility] RBC Ur 0-3 0 - 3 perHPF [facility] SQ EPITH 0-5 0 - 5 perHPF [facility] Mucus 1+ perLPF [facility] Urinalysis [facility] Performed at: Specimen Anatomical Collection Method Collection Time Receive d Time (Source) Location / / Volume Laterality Urine 07/08/2021 7:27 AM 2 8:09 PARAPROFESSIONAL INTERPRETER AM PARAPROFESSIONAL INTERPRETER Karina Israel MD LABORATORY Performing Organization Address City/[facility] Phon e Number [facility] [place] [address] (ABNORMAL) PROTHROMBIN (PT) & INR (07/08/2021 7:27 AM PARAPROFESSIONAL INTERPRETER) athologist Signature PT 39.2 (H) 9.0 - 12.5 [facility] sec INR 3.3 (H) 0.8 - 1.1 [facility] Specimen Anatomical Collection Method Collection Time Receive d Time (Source) Location / / Volume Laterality Blood 07/08/2021 7:27 AM 2 7:47 PARAPROFESSIONAL INTERPRETER AM PARAPROFESSIONAL INTERPRETER Karina Israel MD LABORATORY Performing Organization Address City/[facility]/ZIP Code Phon e Number [facility] [place] [address] (ABNORMAL) AMMONIA (07/08/2021 7:27 AM PARAPROFESSIONAL INTERPRETER) P athologist Signature Ammonia 110 (H) 11 - 51 [facility] mcmol/L Specimen Anatomical Collection Method Collection Time Receive d Time (Source) Location / / Volume Laterality Blood 07/08/2021 7:27 AM 2 7:53 PARAPROFESSIONAL INTERPRETER AM PARAPROFESSIONAL INTERPRETER Narrative [facility] - 07/08/2021 8:18 AM PARAPROFESSIONAL INTERPRETER Send specimen on ice! Karina Israel MD LABORATORY Performing Organization Address City/State/ZIP Code [place] [address] LIPASE (07/08/2021 7:27 AM PARAPROFESSIONAL INTERPRETER) P athologist Signature Lipase 14 13 - 60 IU/L [facility] Specimen Anatomical Collection Method Collection Time Receive d Time (Source) Location / / Volume Laterality Blood 07/08/2021 7:27 AM 7:47 PARAPROFESSIONAL INTERPRETER AM PARAPROFESSIONAL INTERPRETER Karina Israel MD LABORATORY Performing Organization Address City/State/ZIP Code [place] [address] (ABNORMAL) PANEL HEPATIC FUNCTION (07/08/2021 7:27 AM PARAPROFESSIONAL INTERPRETER) P athologist Signature Total Protein 5.3 (L) 6.4 - 8.3 [facility] g/dL Albumin 3.0 (L) 3.8 - 5.1 [facility] g/dL Bili Total 7.1 (H) 0.1 - 1.2 [facility] mg/dL Bili Direct 2.8 (H) 0.0 - 0.3 [facility] mg/dL Alk Phos 150 (H) 35 - 104 [facility] IU/L ALT (SGPT) 18 <=33 IU/L [facility] AST(SGOT) 47 (H) 5 - 40 [facility] IU/L Specimen Anatomical Collection Method Collection Time Receive d Time (Source) Location / / Volume Laterality Blood 07/08/2021 7:27 AM 7:47 PARAPROFESSIONAL INTERPRETER AM PARAPROFESSIONAL INTERPRETER Karina Israel MD LABORATORY Performing Organization Address City/State/ZIP Code [place] [address] (ABNORMAL) ED CHEMISTRY LABS(NA,K,CL,CO2,GLU,CREAT,CA-IONIZED,ANION GAP) (07/08/2021 7:27 AM PARAPROFESSIONAL INTERPRETER) Analysis Performed At Patho logist Time Signature Sodium 140 135 - 148 [facility] mEq/L Chloride 111 (H) 92 - 108 [facility] mEq/L AnGap 7 (L) 8 - 16 [facility] mEq/L Glucose 83 70 - 100 [facility] mg/dL ICA, Actual 4.34 (L) 4.40 - [facility] 5.20 mg/dL ICA, pH 4.51 4.40 - [facility] Corrected 5.20 mg/dL Creatinine 0.67 0.50 - [facility] 1.00 mg/dL BICARB 22 22 - 26 [facility] mEq/L eGFR, High >120 >=60 [facility] ml/min/1.7 3m2 Comment: Calculated using CKD-EPI equati on eGFR, Low 118 >=60 ml/min/1.73m2 [facility] Comment: Calculated using CKD-EPI equati on Potassium 4.0 3.5 - 5.3 mEq/L [facility] Specimen Anatomical Collection Method Collection Time Receive d Time (Source) Location / / Volume Laterality Blood 07/08/2021 7:27 AM 7:36 PARAPROFESSIONAL INTERPRETER AM PARAPROFESSIONAL INTERPRETER Karina Israel MD LABORATORY Performing Organization Address City/State/ZIP Code Phon e Number [facility] [place] [address] documented in this encounter Visit Diagnoses Diagnosis Ascites due to alcoholic hepatitis - [facility] documented in this encounter Administered Medications Inactive Administered Medications - up to 3 most recent administrations Medication Order MAR Action Action Date Dose Rate Site cefTRIAXone (ROCEPHIN) 1 g in New Bag 07/08/2021 1:32 PM PARAPROFESSIONAL INTERPRETER 1 g 200 mL/hr NaCl 0.9% 100 mL IVPB 1 g, Indication (Select One): Infection - Suspected, SITE (Select all that apply): GI/Intra-abdominal, Cultures Ordered? No, Intravenous, ONE TIME, 1 dose, On Wed07/08/21 at 1305 HYDROmorphone PF (DILAUDID) 1 mg/mL injection Given 4:43 PM PARAPROFESSIONAL INTERPRETER 0.5 mg 0.5 mg 0.5 mg, IV Push, ONE TIME, 1 dose, On Wed07/08/21 at 1640 lactulose (KRISTALOSE) package 20 g Given 07/08/2021 3:33 PM PARAPROFESSIONAL INTERPRETER 20 g 20 g, Oral, TID, First dose on Wed07/08/21 at 1450, Until Discontinued oxyCODONE (ROXICODONE) tablet 5 mg Given 07/08/2021 10:39 AM PARAPROFESSIONAL INTERPRETER 5 mg 5 mg, Oral, ONE TIME, 1 dose, On Wed07/08/21 at 1030 documented in this encounter Active and Recently Administered Medications Times are shown in PARAPROFESSIONAL INTERPRETER. Scheduled Medication Order 07/06/2021 07/07/2021 07/08/2021 cefTRIAXone [...]
--- OUTSIDE RECORDS SUMMARY | 2022-02-12 20:37 | XMS_ITS | Clinical Summary ---
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 Added automatically from request for dolly daley [id number] Thrombocytopenia 07/01/2021 Alcoholic cirrhosis 03/12/2021 Acute respiratory [...] signed 01/12/2017 Overview: Signed: 07/05/12-Kiana Pino APRN, OFFICE SUPPORT ASSISTANT - p [email or web address] Anxiety disorder; [...] CDT HOSPITALIST DISCHARGE SUMMAR Y ? ? [facility] Admission Date: 02/08/2022 Discharge Date: 02/09/2022 Discharge [...] 139 POTASSIUM 3.7 3.9 CHLORIDE 103 108 AG2YAZOH 25 22 BUN 7 L 8 CREATININE [...] Component Value U nits Date/Time COVID 19 [[id number]] (Norm al) Collected: 02/08/22722 Lab Status: Final [...] medical emergency. Why were you at the [facility]? The reason(s) you were in [facility] is/are hepatic encephalopathy (your liver not processing [...] and examined today. Dominick Hickey DO Hospitalist, [facility] ? ? [phone] Cc: Matthew Jerome MD ([facility]) 02/08/2022 Travel 01/16/2022 Emergency [place], [place] [...] lb 8 ral oz) Comments: adopted out, [place] couple. patient did meet couple. Last Filed [...] 2013 18-79 Medical Devices Implanted Type Area Truck Loader Overhead Crane Device Shelf Model / Identifier Expiration Serial / Date Lot Partially Threaded Screws Left: Comfort [id number] / Implanted: Qty: 1 on 08/29/2018 by Omar Montesinos MD at [facility] [employer] / Description: From [facility] briana tray Explanted Type Area Truck Loader Overhead Crane Device Shelf Model / Identifier Expiration Serial / Date Lot 2.7mm Locking Screw Left: Comfort [id number] / Explanted: Qty: 1 on 08/29/2018 by Omar Montesinos MD at [facility] [employer] / Description: From [facility] briana tracarlota Distal Medial Humerus Plates Left: Elbow [employer] s [id number] / Implanted: Qty: 1 on 08/29/2018 by Omar Montesinos MD at [facility] / Explanted: Qty: 1 on 06/27/2019 by Omar Montesinos MD at [facility] Description: Amos from [employer] elbow ad [...] Dominick Hickey DO CHEMISTRY Performing Organization Address [facility]/ZIP Code Phon e Number [facility] [address] [place] [address] (ABNORMAL) AMMONIA (02/09/2022 6:00 AM CDT)Only the most recent of2 results within the time period is included. P athologist Signature AMMONIA 95 (H) 11 - 35 02/09/2022 [place] umol/L 6:15 AM [facility]ORY Comment: 1. ??Sulfasalazine and its metabolite [...] Bucio Ruperto DO CHEMISTRY Performing Organization Address [facility] Phon e Number [facility] [address] [place] [address] (ABNORMAL) CBC WITH AUTO DIFFERENTIAL (02/09/2022 5:59 AM CDT) Patholo gist Method Time Signature WHITE BLOOD 5.6 4.5 - 02/09/2022 [place] COUNT 11.0 6:07 AM T [facility] thou/cu LABORATORY mm RED BLOOD COUNT 2.59 (L) 4.00 - 02/09/2022 [place] 5.20 6:07 AM [facility] mil/cu mm LABORATORY HEMOGLOBIN 8.8 (L) 12.0 - 02/09/2022 [place] 16.0 g/dL 6:07 AM [facility] LABORATORY HEMATOCRIT 26.5 (L) 33.0 - 02/09/2022 [place] 51.0 % 6:07 AM [facility] LABORATORY MCV 102 (H) 80 - 100 02/09/2022 [place] fL 6:07 AM [facility] LABORATORY MCH 34.0 26.0 - 02/09/2022 [place] 34.0 pg 6:07 AM [facility] LABORATORY MCHC 33.2 32.0 - 02/09/2022 [place] 36.0 g/dL 6:07 AM [facility] LABORATORY RDW 23.2 (H) 11.5 - 02/09/2022 [place] 15.5 % 6:07 AM [facility] LABORATORY PLATELET COUNT 51 (L) 140 - 440 02/09/2022 [place] thou/cu 6:07 AM [facility] mm LABORATORY MPV 9.8 6.5 - 02/09/2022 [place] 11.0 fL 6:07 AM [facility] LABORATORY % NEUT 72.8 % 02/09/2022 [place] 6:07 AM [facility] LAB[facility]ATORY % LYMPH 16.7 % 02/09/2022 [place] 6:07 AM [facility] LABORATORY % MONO 8.3 % 02/09/2022 [place] 6:07 AM [facility] LABORATORY % EOS 1.8 % 02/09/2022 [place] 6:07 AM [facility] LABORATORY % BASO 0.4 % 02/09/2022 [place] 6:07 AM [facility] LABORATORY ABSOLUTE 4.1 1.7 - 7.0 02/09/2022 [place] NEUTROPHILS thou/cu 6:07 AM [facility] LABORATORY ABSOLUTE 0.9 0.9 - 2.9 02/09/2022 [place] LYMPHOCYTES thou/cu 6:07 AM [facility] LABORATORY ABSOLUTE 0.5 <0.9 02/09/2022 [place] MONOCYTES thou/cu 6:07 AM [facility] mm LABORATORY ABSOLUTE 0.1 <0.5 02/09/2022 [place] EOSINOPHILS thou/cu 6:07 AM [facility] mm LABORATORY ABSOLUTE 0.0 <0.3 02/09/2022 [place] BASOPHILS thou/cu 6:07 AM [facility] mm LABORATORY Specimen Anatomical Collection Method Collection Time Receive d Time (Source) Location / / Volume Laterality Blood BLOOD SPECIMEN / Butterfly / 02/09/2022 5:59 AM 02/09 6:02 Unknown Unknown T [facility] Catia Castle MD HEMATOLOGY Performing Organization Address City/State/ZIP Code Phon e Number [facility] [address] [place] [address] IRON PLUS IRON BINDING CAP (02/09/2022 5:59 AM CDT) athologist Signature IRON 126 25 - 156 02/09/2022 [facility] ug/dL 5:33 PM CDT LABORATORY-[facility] UIBC <41 02/09/2022 [facility] (UNSATURATED) 5:33 PM CDT LAB[facility]ATORY-[facility] IRON BINDING 02/09/2022 [facility] CAPACITY 5:33 PM CDT [facility] Comment: Results below measurement range , unable to calculate. IRON,% SATURATION 02/09/2022 5:33 PM CDT [facility] LABORATORY-CENTRAL LABORATORY Comment: Results below measurement range , unable to calculate. Specimen Anatomical Collection Method Collection Time Receive d Time (Source) Location / / Volume Laterality Blood BLOOD SPECIMEN / Butterfly / 02/09/2022 5:59 AM 02/09 6:02 Unknown Unknown CDT AM CDT Catia Castle MD CHEMISTRY Performing Organization Address City/State/ZIP Code Phon e Number [facility] [address] [address] LABORATORY-CENTRAL 2000 LABORATORY (ABNORMAL) PROTIME-INR (02/09/2022 5:59 AM CDT)Only the most recent of2 results within the time period is included. athologist Signature INR 2.9 (H) <1.3 02/09/2022 [facility] AM [facility] PROTIME 29.1 (H) 12.0 - 13.8 02/09/2022 [facility] sec 6:12 AM CDT [facility] LABORATORY Specimen Anatomical Collection Method Collection Time Receive d Time (Source) Location / / Volume Laterality Blood BLOOD SPECIMEN / Butterfly / 02/09/2022 5:59 AM 02/09 6:02 Unknown Unknown CDT AM CDT Narrative [facility] - 6:12 AM CDT ?Therapeutic Range [...] Catia Castle MD HEMATOLOGY Performing Organization Address [facility]/ZIP [facility] Phon e Number [facility] [address] [place] [address] (ABNORMAL) HAPTOGLOBIN (02/09/2022 5:59 AM CDT) athologist Signature Haptoglobin <8 (L) 30 - 215 02/09/2022 [facility] mg/dL 7:00 PM CDT LABORATORY-[facility] LAB[facility]ORY Specimen Anatomical Collection Method Collection Time Receive d Time (Source) Location / / Volume Laterality Blood BLOOD SPECIMEN / Butterfly / 02/09/2022 5:59 AM 02/09 6:02 Unknown Unknown CDT AM CDT Catia Castle MD CHEMISTRY Performing Organization Address City/[facility]/ZIP Code Phon e Number [employer] [address] [place] [address] [place] [address] LABORATORY-CENTRAL 1999 LABORATORY (ABNORMAL) FERRITIN (02/09/2022 5:59 AM CDT) athologist Signature FERRITIN 710.1 (H) 15.0 - 02/09/2022 [facility] 205.0 5:44 PM CDT LABORATORY-CENT ng/mL [facility] Specimen Anatomical Collection Method Collection Time Receive d Time (Source) Location / / Volume Laterality Blood BLOOD SPECIMEN / Butterfly / 02/09/2022 5:59 AM 02/09 6:02 Unknown Unknown CDT AM CDT Catia Castle MD CHEMISTRY Performing Organization Address City/[facility]/ZIP Code Phon e Number [employer] [address] [place] [address] LABORATORY-CENTRAL 1999 LABORATORY (ABNORMAL) HEPATIC FUNCTION PANEL (02/09/2022 5:59 AM CDT) [facility] gist Method Time Signature ALBUMIN 3.8 3.5 - 5.2 02/09/2022 [place] g/dL 6:35 AM [facility] LABORATORY PROTEIN,TOTAL 5.5 (L) 6.0 - 8.0 02/09/2022 [place] g/dL 6:35 AM [facility]ORY GLOBULIN 1.7 (L) 2.0 - 3.7 02/09/2022 [place] g/dL 6:35 AM [facility] LAB[facility]ATORY A/G RATIO 2.2 (H) 1.0 - 2.0 02/09/2022 [place] 6:35 AM [facility] LABORATORY BILIRUBIN,TOTAL 14.4 (H) 0.2 - 1.2 02/09/2022 [place] mg/dL 6:35 AM [facility] LAB[facility]ATORY BILIRUBIN,DIRECT 5.4 (H) 0.1 - 0.5 02/09/2022 [place] mg/dL 6:35 AM [facility] LABORATORY BILIRUBIN,INDIRE 9.0 (H) 0.2 - 0.8 02/09/2022 [facility] mg/dL 6:35 AM [facility] LABORATORY ALK PHOSPHATASE 308 (H) 50 - 136 02/09/2022 [place] IU/L 6:35 AM [facility] LABORATORY ALT (SGPT) 25 8 - 45 02/09/2022 [place] IU/L 6:35 AM [facility] LAB[facility]ATORY AST (SGOT) 70 (H) 2 - 40 02/09/2022 [facility] IU/L 6:35 AM [facility] LAB[facility]ORY Specimen Anatomical Collection Method Collection Time Receive d Time (Source) Location / / Volume Laterality Blood BLOOD SPECIMEN / Butterfly / 02/09/2022 5:59 AM 02/09 6:02 Unknown Unknown CDT AM CDT Catia Castle MD CHEMISTRY Performing Organization Address City/State/ZIP Code Phon e Number [facility] [address] [place] [address] (ABNORMAL) BASIC METABOLIC PANEL (02/09/2022 5:59 AM CDT) Analysis Performed At Patho logist Time Signature SODIUM 136 135 - 145 02/09/2022 [place] mmol/L 6:24 AM [facility]T [facility] LABORATORY POTASSIUM 3.7 3.5 - 5.0 02/09/2022 [place] mmol/L 6:24 AM [facility] LABORATORY CHLORIDE 103 98 - 110 02/09/2022 [place] mmol/L 6:24 AM [facility] LABORATORY CO2,TOTAL 25 21 - 31 02/09/2022 [place] mmol/L 6:24 AM [facility] LABORATORY ANION GAP 8 5 - 18 02/09/2022 [place] 6:24 AM [facility] LABORATORY GLUCOSE 150 (H) 65 - 100 02/09/2022 [place] mg/dL 6:24 AM [facility] LABORATORY CALCIUM 9.2 8.5 - 10.5 02/09/2022 [place] mg/dL 6:24 AM [facility] LABORATORY BUN 7 (L) 8 - 25 02/09/2022 [place] mg/dL 6:24 AM [facility] LABORATORY CREATININE 0.66 0.57 - 02/09/2022 [facility] 1.11 mg/dL 6:24 AM [facility] LABORATORY BUN/CREAT RATIO 11 10 - 20 02/09/2022 [facility] 6:24 AM [facility] LABOR[facility]ORY eGFR >90 >90 02/09/2022 [place] mL/min/1.7 6:24 AM [facility] 3m2 LABORATORY Comment: As of 2021, eGFR [...] 02/09 6:02 Unknown Unknown T AM T Catai Castle MD CHEMISTRY Performing Organization Address City/State/ZIP Code Phon e Number [facility] [address] [facility] [place] [address] (ABNORMAL) HEMOGLOBIN (02/08/2022 12:33 PM CDT) athologist Signature HEMOGLOBIN 9.2 (L) 12.0 - 02/08/2022 [place] 16.0 g/dL 12:59 PM [facility]ORY MCV 103 (H) 80 - 100 02/08/2022 [place] fL 12:59 PM [facility] LABOR[facility]ORY Specimen Anatomical Collection Method Collection Time Receive d Time (Source) Location / / Volume Laterality Blood BLOOD SPECIMEN / Butterfly / 02/08/2022 12:33 022 Unknown Unknown PM CDT 12:39 PM CDT Catia Csatle MD HEMATOLOGY Performing Organization Address City/[facility]/ZIP Code Phon e Number [facility] [address] [place] [address] URINALYSIS MICROSCOPIC (02/08/2022 11:04 AM CDT) athologist Signature RBC 0-2 0-2, None 02/08/2022 [place] Seen /HPF 11:21 AM [facility] LABORATORY WBC 0-2 0-2, 3-5, 02/08/2022 [place] None Seen 11:21 AM [facility] /HPF LABORATORY BACTERIA Few None Seen, 02/08/2022 [place] Rare, Few 11:21 AM [facility] Bacteria/H LABORATORY PF EPITHELIAL Few None Seen, 02/08/2022 [place] CELLS Few 11:21 AM [facility] Epi/HPF LABORATORY RENAL Few Few 02/08/2022 [place] EPITHELIAL 11:21 AM [facility] CELLS LABORATORY Specimen Anatomical Collection Method Collection Time Receive d Time (Source) Location / / Volume Laterality Urine URINE SPECIMEN / Non-Blood / 02/08/2022 11:04 022 Unknown Unknown AM CDT 11:12 AM CDT Gerard Cruz MD URINE Performing Organization Address City/[facility]/ZIP Code Phon e Number [facility] [address] [place] [address] (ABNORMAL) Urinalysis W Reflex Microscopic if Positive (02/08/2022 11:04 AM CDT) [facility] gist Method Time Signature COLOR Yellow Yellow Color 02/08/2022 [place] 11:21 AM [facility] LABORATORY CLARITY Clear Clear 02/08/2022 [place] Clarity 11:21 AM [facility] LABORATORY SPECIFIC 1.015 1.010, 02/08/2022 [facility] GRAVITY,URINE 1.015, 11:21 AM MEDICAL 1.020, 1.025 [facility] LABORATORY PH,URINE 6.5 6.0, 7.0, 02/08/2022 [facility] 8.0, 5.5, 11:21 AM MEDICAL 6.5, 7.5, T CENTER 8.5 LABORATORY UROBILINOGEN, Normal Normal EU/dl 02/08/2022 [place] QUALITATIVE 11:21 AM [facility] LABORATORY PROTEIN, Negative Negative 02/08/2022 [place] URINE mg/dL 11:21 AM [facility] LABORATORY GLUCOSE, Negative Negative 02/08/2022 [place] URINE mg/dL 11:21 AM [facility] LAB[facility]ORY KETONES,URINE Negative Negative 02/08/2022 [facility] mg/dL 11:21 AM [facility] LABORATORY BILIRUBIN,URI Abnormal (A) Negative 02/08/2022 [place] NE 11:21 AM [facility] Comment: A variety of metabolites and/or medications may result in a positive bilirubin result. Clinical correlation i s recommended. OCCULT BLOOD,URINE Negative Negative 02/08/2022 11:21 AM [facility] NITRITE Negative Negative 02/08/2022 11:21 AM [facility] LABORATORY LEUKOCYTE ESTERASE Negative Negative 02/08/2022 11:21 AM [facility] Specimen Anatomical Collection Method Collection Time Receive d Time (Source) Location / / Volume Laterality Urine URINE SPECIMEN / Non-Blood / 02/08/2022 11:04 022 Unknown Unknown AM CDT 11:12 AM CDT Gerard Cruz MD URINE Performing Organization Address City/State/ZIP Code Phon e Number [facility] [address] [place] [address] TRANSFUSE RBC (NURSE COMMUNICATION ORDER) (02/08/2022 9:44 AM CDT) Specimen (Source) Anatomical Location Collection Method / Collectio n Time Received Time / Laterality Volume Blood BLOOD SPECIMEN / Unknown Gerard Cruz MD NURSING BLOOD BANK COVID 19 (02/08/2022 7:23 AM CDT) Analysis Performed At [facility] logist Time Signature COVID 19 Negative Negative 02/08/2022 [facility] 11:09 AM T [facility] LABORATORY Comment: All PCR tests are [...] CDT AM CDT STRUCTURE / Unknown Narrative [facility] - 11:09 AM CDT This test [...] the authorization is terminated or revoked sooner. Greard Cruz MD MICROBIOLOGY Performing Organization Address [facility] LABORATORY [address] [place] [address] COVID 19 COLLECTION (02/08/2022 7:23 AM CDT) [facility] gist Method Time Signature TESTING [facility] 02/08/2022 [place] LABORATORY Laboratory 7:44 AM [facility]ORY Comment: Specimen submitted to [facility] for testing. Specimen Anatomical Location / Collection Method Collection Hiro e Received Time (Source) Laterality / Volume Other SPECIMEN FROM Non-Blood / 02/08/2022 7:23 02/08/2022 7:38 NASOPHARYNGEAL Unknown AM CDT AM CDT STRUCTURE / Unknown Gerard Cruz MD SEND OUTS Performing Organization Address [facility] Phon e [facility] LABORATORY [address] [place] [address] RED BLOOD CELLS EA UNIT (02/08/2022 6:56 AM CDT) [facility] Signature CROSSMATCH Compatible Compatible [facility] BLOOD BANK PRODUCT BLOOD B Rh Positive [facility] BLOOD BANK PRODUCT ID [id number] [facility] BLOOD BANK PRODUCT STATUS Transfused [facility] BLOOD BANK PRODUCT RBC -1 LR [facility] LAB[facility]ORY BLOOD BANK PRODUCT CODE [id number] [facility] BLOOD BANK ISSUE 02/08/22 [place] DATE/TIME 07:49 [facility]OR[facility] BLOOD BANK Specimen (Source) Anatomical Location Collection Method / Collectio n Time Received Time / Laterality Volume Gerard Cruz MD BLOOD BANK Performing Organization Address [facility]/ZIP Code Phon e Number [facility] [address] [place] [address] BLOOD BANK (ABNORMAL) RED CELL MORPHOLOGY (02/08/2022 5:23 AM CDT) [facility] Signature ACANTHOCYTES Many 02/08/2022 [facility] 6:11 AM [facility] LABORATORY POLYCHROMASIA Slight 02/08/2022 [facility] 6:11 AM [facility] LABORATORY SCHISTOCYTES Few 02/08/2022 [facility] 6:11 AM [facility] LAB[facility]ORY RBC COMMENT Present (A) RBC 02/08/2022 [facility] 6:11 AM [facility] normal, RBC LABORATORY morphology within normal limits for newborns. Specimen Anatomical Collection Method Collection Time Receive d Time (Source) Location / / Volume Laterality Blood BLOOD SPECIMEN / Butterfly / 02/08/2022 5:23 AM 02/08 5:46 Unknown Unknown CDT AM CDT Gerard Cruz MD HEMATOLOGY Performing Organization Address City/[facility]/ZIP Code Phon e Number [facility] [address] [place] [address] (ABNORMAL) PLATELET ESTIMATE (02/08/2022 5:23 AM CDT) [facility] Signature PLATELET Decreased (A) Adequate, No 02/08/2022 [facility] ESTIMATE estimate 6:11 AM CDT [facility] LABORATORY Specimen Anatomical Collection Method Collection Time Receive d Time (Source) Location / / Volume Laterality Blood BLOOD SPECIMEN / Butterfly / 02/08/2022 5:23 AM 02/08 5:46 Unknown Unknown CDT AM CDT Gerard Cruz MD HEMATOLOGY Performing Organization Address City/State/ZIP Code Phon e Number [facility] [address] [place] [address] (ABNORMAL) CBC w PLT no Diff (02/08/2022 5:23 AM CDT) [facility] Method Time Signature WHITE BLOOD 4.5 4.5 - 11.0 02/08/2022 [facility] COUNT thou/cu mm 6:13 AM [facility] LABORATORY RED BLOOD COUNT 1.96 (L) 4.00 - 02/08/2022 [place] 5.20 6:13 AM [facility] mil/cu mm LABORATORY HEMOGLOBIN 6.9 (LL) 12.0 - 02/08/2022 [place] 16.0 g/dL 6:13 AM [facility] LABORATORY HEMATOCRIT 20.8 (L) 33.0 - 02/08/2022 [place] 51.0 % 6:13 AM [facility] LABORATORY MCV 106 (H) 80 - 100 02/08/2022 [facility] fL 6:13 AM [facility] LABORATORY MCH 35.2 (H) 26.0 - 02/08/2022 [place] 34.0 pg 6:13 AM [facility] LABORATORY MCHC 33.2 32.0 - 02/08/2022 [place] 36.0 g/dL 6:13 AM [facility] LABORATORY RDW 21.8 (H) 11.5 - 02/08/2022 [place] 15.5 % 6:13 AM [facility] LABORATORY PLATELET COUNT 54 (L) 140 - 440 02/08/2022 [facility] thou/cu mm 6:13 AM [facility] LABORATORY MPV 9.0 6.5 - 11.0 02/08/2022 [place] fL 6:13 AM [facility] LABORATORY Specimen Anatomical Collection Method Collection Time Receive d Time (Source) Location / / Volume Laterality Blood BLOOD SPECIMEN / Butterfly / 02/08/2022 5:23 AM 02/08 5:46 Unknown Unknown CDT AM CDT Gerard Cruz MD HEMATOLOGY Performing Organization Address City/[facility]/ZIP Code Phon e Number [facility] [address] [place] [address] Ethanol Serum or Plasma (02/08/2022 5:23 AM CDT) athologist Signature ETHANOL <0.010 <0.010 g/dL 02/08/2022 [place] 6:12 AM CDT [facility] LABORATORY Specimen Anatomical Collection Method Collection Time Receive d Time (Source) Location / / Volume Laterality Blood BLOOD SPECIMEN / Butterfly / 02/08/2022 5:23 AM 02/08 5:46 Unknown Unknown CDT AM CDT Gerard Cruz MD CHEMISTRY Performing Organization Address City/[facility]/ZIP Code Phon e Number [facility] [address] [place] [address] (ABNORMAL) Magnesium (02/08/2022 5:23 AM CDT) athologist Signature MAGNESIUM 1.3 (L) 1.6 - 2.6 02/08/2022 [place] mg/dL 6:12 AM T [facility] Specimen Anatomical Collection Method Collection Time Receive d Time (Source) Location / / Volume Laterality Blood BLOOD SPECIMEN / [place] / 02/08/2022 5:23 AM 02/08 5:46 Unknown Unknown CDT AM CDT Gerard Cruz MD CHEMISTRY Performing Organization Address City/State/ZIP Code Phon e Number [facility] [address] [place] [address] Lipase (02/08/2022 5:23 AM CDT) athologist Signature LIPASE 11.7 8.0 - 78.0 02/08/2022 [place] IU/L 6:10 AM CDT [facility] Specimen Anatomical Collection Method Collection Time Receive d Time (Source) Location / / Volume Laterality Blood BLOOD SPECIMEN / Butterfly / 02/08/2022 5:23 AM 02/08 5:46 Unknown Unknown CDT AM CDT Gerard Cruz MD CHEMISTRY Performing Organization Address City/State/ZIP Code Phon e Number [facility] [address] [facility] [place] [address] (ABNORMAL) Complete Metabolic Panel (02/08/2022 5:23 AM CDT) [facility] Method Time Signature SODIUM 139 135 - 145 02/08/2022 [place] mmol/L 6:09 AM [facility] POTASSIUM 3.9 3.5 - 5.0 02/08/2022 [place] mmol/L 6:09 AM [facility] CHLORIDE 108 98 - 110 02/08/2022 [place] mmol/L 6:09 AM [facility] CO2,TOTAL 22 21 - 31 02/08/2022 [place] mmol/L 6:09 AM [facility] ANION GAP 9 5 - 18 [facility] AM [facility] GLUCOSE 125 (H) 65 - 100 02/08/2022 [place] mg/dL 6:09 AM [facility] CALCIUM 8.3 (L) 8.5 - 02/08/2022 [place] 10.5 6:09 AM [facility] mg/dL LABORATORY BUN 8 8 - 25 02/08/2022 [place] mg/dL 6:09 AM [facility] CREATININE 0.63 0.57 - 02/08/2022 [place] 1.11 6:09 AM [facility] mg/dL LABORATORY BUN/CREAT RATIO 13 10 - 20 02/08/2022 [place] 6:09 AM [facility] ALBUMIN 3.5 3.5 - 5.2 02/08/2022 [place] g/dL 6:09 AM [facility] PROTEIN,TOTAL 5.0 (L) 6.0 - 8.0 02/08/2022 [place] g/dL 6:09 AM [facility] GLOBULIN 1.5 (L) 2.0 - 3.7 02/08/2022 [place] g/dL 6:09 AM [facility] A/G RATIO 2.3 (H) 1.0 - 2.0 02/08/2022 [place] 6:09 AM [facility] BILIRUBIN,TOTAL 10.7 (H) 0.2 - 1.2 02/08/2022 [place] mg/dL 6:09 AM [facility] ALK PHOSPHATASE 293 (H) 50 - 136 02/08/2022 [place] IU/L 6:09 AM [facility] ALT (SGPT) 20 8 - 45 02/08/2022 [place] IU/L 6:09 AM [facility] AST (SGOT) 57 (H) 2 - 40 02/08/2022 [place] IU/L 6:09 AM [facility] eGFR >90 >90 02/08/2022 [facility] mL/min/1. 6:09 AM [facility] 73m2 LABORATORY Comment: As of 2021, eGFR [...] Organization Address City/State/ZIP Code Phon e Number [facility] [address] [place] [address] EKG 12 Lead (02/08/2022 4:51 AM CDT) [...] NOW QTc 507 ms BEYOND NOW P [place] 50 degrees BEYOND NOW R [place] 37 degrees BEYOND NOW T [place] 26 degrees BEYOND NOW Specimen Anatomical Collection Method Collection Time Receive d Time (Source) Location / / Volume Laterality 02/08/2022 4:51 AM 5:56 CDT AM CDT Gerard Cruz MD EKG ORD Performing Organization Address City/State/ZIP Code Phon e Number [place] NOW [place], [place] RBC W TYPE AND SCREEN (02/08/2022 12:56 AM CDT) [facility] Method Time Signature ABORH B Rh [...] Cruz MD BLOOD BANK Performing Organization Address City/[facility]/ZIP Code Phon e Number [facility] [address] [place] [address] BLOOD BANK from Last 3 Months Insurance Payer Benefit Plan / Subscriber ID Effective Dates Phone Addre ss Type Group BLUE [employer]OSS [place] BLUE ADVANTAGE [id number] 2018-Present [address] [address] [place] [address] MEDICA[place]ICA[place] [id number] 2015-Presen [address] [address] [place] [address] Catia Carias E Personal/Famil Self 1990 AP T 3 y (Home) [address] [place] [address] Catia Carias E Motor Vehicle Self 1990 [address] (Home) [facility] [place] [address] Advance Directives Latest Code Status on File [...] 12:37 AM 11/08/2019 9:50 PM Care Teams Chief General Pediatric Clinic Relationship Specialty Start Date End Date Ana Red PA-C PCP - General Physician Weaver Needle Loom 02/09/[address] [place] [address] [place] [id number]
--- OUTSIDE RECORDS SUMMARY | 2022-02-12 20:37 | XMS_ITS | Clinical Summary ---
:1990 Author Organization [facility] Address [address] [place] [address] Care Team Providers Name Role Phone Clinic, [facility] Primary Care Provider [facility], [facility] Unavailable [phone] Allergies Active Allergy Reactions Severity Noted Date [...] Addre ss Type Group BLUE CROSS BCBS [facility] [id number] 2018-Present [phone] [address] [address] [place] [address] Catia Carias Personal/Family Self 1990 A PT 3 (Home) [address] [place] [address] Advance Directives For more information, please contact: [phone] Latest Code Status on File Code Status Date Activated Date Inactivated Comments Full Code 09/30/2018 4:42 AM 10/02/2018 6:07 PM How was code status determined? Patient Care Teams Geological Survey Field Assistant Relationship Specialty Start Date End Date [facility] PCP - General 09/30/18 [place] [address] [place] [phone] [facility] PCP - Primary Care Clinic [address] [place] [address] [place] [phone]
--- OUTSIDE RECORDS SUMMARY | 2022-02-12 20:37 | XMS_ITS | Encounter Summary ---
:1990 Author Care Team Providers Name Role Phone Ervin Schroeder MD Primary Care Provider [phone] [facility] OTHER [phone] Parris Knight (Mother) Patient Designee [phone] Jairo Rodriguez REFRIGERATOR ASSEMBLER Nurse Practitioner [phone] Matthew Rollins MD Transplant Accounts Officer [phone] [facility] Care Team Palliative Care [phone] Taylor Paul RN Palliative Care [phone] Zenobia Kirby [facility] Instrument Lens Inspector [phone] Reason for Visit None recorded. Assessment and Plan Assessment Note Patient answered the phone, states that she is in a car heading to [place] to the transplant clinic. She would like to reschedule appointment. Ok to call and reschedule appointment. Message sent to [facility] No services performed. Discussion Note: None [...] Inhale 1 each as needed. Med Name: [employer] Cann[employer] Flower, smoking once weekly as needed [...] Status Unknown. Past Encounters 02/05/2022 Jairo Rodriguez, ROOF BOLTER OPERATOR: [address], [place] [address], Ph. History of Present Illness None recorded. Review of Systems None recorded. Physical Exam None recorded.
--- OUTSIDE RECORDS SUMMARY | 2022-02-12 20:37 | XMS_ITS ---
:1990 Author Care Team Providers Name Role Phone STEPHANIE RODRIGUEZ AMILCAR Nurse Practitioner [phone] Parris Knight (mother) Patient Designee [phone] HEYDI BHAGAT MD Transplant Loading Supervisor [phone] [facility] TEAM Palliative Care [phone] TAYLOR PAUL RN Palliative Care [phone] DOMINICK TODD MD Primary Care Provider [phone] CORNELL ARORA [facility] Water Reuse Program Manager [phone] THOMAS JERNIGAN [facility] OTHER [phone] Allergies Code Code System Name Reaction Severity [...] None recorded. Past Encounters 02/05/2022 Stephanie Rodriguez CONSUMER LOAN OFFICER: [address] [place] [address], Ph. 12/01/2021 Stephanie Rodriguez CNP: [address] [place] [address], Ph. 11/27/2021 Taylor Paul RN: [address] [place] [address], Ph. 11/05/2021 Stephanie Rodriguez, CONSUMER LOAN OFFICER: [address] [place] [phone], Ph. [phone] 10/14/2021 Evi Biggs LPN: [address] [place] [address] [place] [address], Ph. Social History None recorded. Vaccine List None recorded. Plan of Care Patient Instructions Patient instructed to call with [employer] ns or concerns. Patient instructed to call with [employer] ns or concerns. Reminders Provider Appointments None recorded. ? ? Lab None recorded. ? ? Referral None recorded. ? ? Procedures None recorded. ? ? Surgeries None recorded. ? ? Imaging None recorded. ? ? Vitals Height Weight BMI Blood Pressure 5 ft 2 in 133 lbs 24.3 kg/m2 98/58 mm[Hg]
--- OUTSIDE RECORDS SUMMARY | 2022-02-12 20:37 | XMS_ITS | Encounter Summary ---
:1990 Author Organization [facility] Address [address] [place] [address] Phone Care Team Providers Name Role Phone [...] No / Unsu re 07/08/2021 9:38 AM DIAL MARKER someone who was confirmed or suspected to have Coronavirus/COVID-19? documented as of this encounter Plan of Treatment Not on filedocumented as of this encounter Visit Diagnoses Not on filedocumented in this encounter
--- OUTSIDE RECORDS SUMMARY | 2022-02-12 20:37 | XMS_ITS | Encounter Summary ---
:1990 Author Organization [facility] Address [address] [place] [address] Care Team Providers Name Role Phone [facility], [facility] Primary Care Provider [facility] Unavailable [phone] Encounter Details Date Type Department Care Team [...] on filedocumented in this encounter Care Teams Narrow Gauge Engineer Relationship Specialty Start Date End Date [facility] PCP - General 09/30/18 [place] [address] [place] [address] [facility] PCP - Primary Care Clinic 9 [place] [address] [place] [address] documented as of this encounter
--- OUTSIDE RECORDS SUMMARY | 2022-02-12 20:37 | XMS_ITS | Encounter Summary ---
:1990 Author Organization [address] [address] Phone Care Team Providers Name Role Phone Unavailable Primary Care Provider Unavailable Encounter Details Date Type Department Care Team Description 07/15/2021 Nurse Triage [facility] Contact Center Cary Segura, RN [facility] [address] [place] [address] [place] [address] Social History Tobacco Use Types Packs/Day Years Used Date Smoking Tobacco: Never Assessed Sex Assigned at Date Recorded Not on file COVID-19 Exposure Response Date Recorded In the last 10 days, have you been in contact with No / Unsu re 07/08/2021 9:38 AM 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 documented as of this encounter Miscellaneous Notes Telephone Encounter - Cary Segura RN - 07/15/2021 9:06 AM CDT D: Telephone call received from patient questioning why she was not give blood when she was transferred to [facility] from [facility]. A: Spoke with caller and advised her [...]
--- OUTSIDE RECORDS SUMMARY | 2022-02-12 20:37 | XMS_ITS | Clinical Summary ---
:1990 Author Organization [facility] Address [address] [place], [place] [address] [address] Phone Care Team Providers Name Role Phone Unavailable Primary Care Provider Unavailable Source Comments [place] is fully rolled out on [employer]. Last update 10/05/08.[facility] Allergies Active Allergy Reactions Severity Noted Date [...] Comments Blood Pressure 114/67 07/08/2021 4:03 PM DRY CLIPPER TENDER Pulse 82 07/08/2021 4:03 PM DRY CLIPPER TENDER Temperature 36.9 ??C (98.5 ??F) 07/08/2021 6:31 AM DRY CLIPPER TENDER Respiratory Rate 16 07/08/2021 4:03 PM DRY CLIPPER TENDER Oxygen Saturation 98% 07/08/2021 4:03 PM DRY CLIPPER TENDER Inhaled Oxygen Concentration - - Weight - [...] 05/26/1995, Additional history exists HIB Completed 02/08/1992, 02/08/1992, 06/01/1991, Additional history exists Insurance Payer Benefit Plan Subscriber ID Effective Dates Phone Address Type / Group BLUE CROSS BCBS BLUE [id number] 2018-Sung [address] [address] CARMELO Managed BLUE [employer]ELD [place] [address] (Home) [address] [place] [phone]
--- OUTSIDE RECORDS SUMMARY | 2022-02-12 20:37 | XMS_ITS | Encounter Summary ---
:1990 Author Organization [facility] Address [address] [place] [address] Care Team Providers Name Role Phone [facility], [facility] Primary Care Provider [phone] [facility] Unavailable [phone] Reason for Referral (Routine) - Closed Specialty Diagnoses / Procedures Referred By Contact Refer red To Contact Procedures Gonzalo Tavera MD Return to previous diet [address] [place], [place] [address] Referral ID Status Reason Start Date Expiration Date Visits Requ ested Visits Authorized [id number] Closed 10/02/2018 10/02/2019 1 1 (Routine) - Closed Specialty Diagnoses / Procedures Referred By Contact Refer red To Contact Procedures Gonzalo Tavera MD Normal activity as tolerated [address] [place], [place] [address] Referral ID Status Reason Start Date Expiration Date Visits Requ ested Visits Authorized [id number] Closed 10/02/2018 10/02/2019 1 1 (Routine) - Closed Specialty Diagnoses / Procedures Referred By Contact Refer red To Contact Gonzalo Tavera MD [facility], [facility] [address] [place], [place] [address] 2 [place] [address] Fax: Referral ID Status Reason Start Date Expiration Date Visits Requ ested Visits Authorized [id number] Closed 10/02/2018 10/02/2019 1 1 Question Answer Specify time frame for follow up? 1 Week (Routine) - Closed Specialty Diagnoses / Procedures Referred By Contact Refer red To Contact Procedures Gonzalo [facility]avera [facility] [place] [address] Referral ID Status Reason Start Date Expiration Date Visits Requ ested Visits Authorized [id number] Closed 10/02/2018 10/02/2019 1 1 Reason for Visit Inpatient Admission Specialty Diagnoses / Procedures Referred By Contact Refer red To Contact Diagnoses Acute hepatitis Hepatitis, Acute Referral ID Status Reason Start Date Expiration Date Visits Requ ested Visits Authorized [id number] 1 1 Encounter Details Date Type Department Care Team Description 09/30/2018 - Hospital Encounter W2 Hm-Hospitalist [facility] [place] [address] Acute hepatitis 10/02/[address] [place] [address] Gonzalo Tavera MD [facility] [place] [address] [place] [id number] Social History Tobacco Use Types Packs/Day Years [...] Tavera MD - 10/02/2018 12:02 PM CDT [facility] ([facility] HOSPITAL DISCHARGE SUMMARY Patient Name: Catia Carias Date of : 1990 Admission Date: 09/30/2018 Discharge Date: 10/02/2018 She will be discharged to home. Primary care: [facility] Consultants: 1. Gastroenterology 2. Orthopedics DISCHARGE DIAGNOSES: [...] to Excess Tylenol Use:??Presented as direct admissionfrom [address] in [place]??with??abdominal pain and vomiting??x 2??days. ??She had been [...] open reduction internal fixation on 08/29/[address]??Dr[address] Omar Rodriguez. ??Has been having [...] Up Referral Priority: Routine Referred to Provider: [facility] Number of Visits Requested: 1 [...] Tavera MD, Hospitalist Internal Medicine and Pediatrics [facility] Medicine Time: over 30 minutes [...] live longer. For further assistanceplease call the [employer] Helpline at [phone] or go to their website [email or web address]. documented in this encounter Medications at Time [...] 10/02/2018 12:02 PM CDT Catia Carias 1990 [id number] P: Discharge A: Discharged ambulatory to home at 1145 escorted by self I: Discharge information and arrangements included: review of written discharge instructions, belongings list completed. R:Patient expressed understanding of information.. Andreas Paul RN - 10/02/2018 3:52 AM CDT Med-Surg Care Progression Note Type: Shift to shift summary [id number] Length of stay: 2 days Code Status: [...] questions or concerns. Criselda Coker MD [facility] Digestive Health [phone] Evi Londono RN - 10/01/2018 12:22 PM [...] Tavera MD - 10/01/2018 10:32 AM CDT [facility] PROGRESS NOTE CHIEF COMPLAINT: Arm pain SUBJECTIVE: [...] Tylenol Use: Presented as direct admission from [address] in [place] with abdominal pain and vomiting x 2 [...] open reduction internal fixation on 08/29/[address] Omar Rodriguez. Has been [...] pain remains uncontrolled may need to consider SHAPING MACHINE TENDER. Consulted Orthopedics for assistance with management. Defer further imaging to Orthopedics. I'm worried about progressive or new ulnar nerve impingement or damage. Will start gabapentin 300 mg TID. 3. Recent Pancreatitis: Was admitted at [address] in [place] 09/08/2018 - 09/11/2018 for pancreatitis. Etiology was [...] Tavera MD, Hospitalist Internal Medicine and Pediatrics [facility] Medicine Pager: [phone] SKIN: Surgical Incision Left;Posterior Elbow (Active) No [...] DVT/Anticoagulation Progression: Not applicable Pt comes from [facility] d/t tylenol overdose occurring because of pt [...] to call for help, name of assigned career developer, initialphysician orders, hourly rounding procedures, belongings checklist, [...] infusing D- DVT/Anticoagulation Progression: bleed risk Robby oCnrad MD - 09/30/2018 6:20 AM CDT Needs H&P in AM I did see pt on arrival as direct admission to help ensure stability. The patient is direct admission from [facility] with acute hepatitis likely due to excess [...] is contributing lactic acidosis at outside facility. [facility] Physician discussed case w/ GI Physician Dr. Davis who recommended pt be transferred [facility] as direct admission and be started [...] 09/30/2018 3:39 AM CDT Received report from [facility] in [place]. 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 LFT's: AST 3955 ALT 624 Alk Phos 186 Lactate 2.9 Pt received 1 liter LR in the ED and the N-acetyl cysteine was started. First dosing was 54495 mg in200 ml, completed in the ED, and 3380mg in 500 ml was initiated before transport. documented in this encounter H&P Notes Gonzalo Tavera MD - 09/30/2018 9:58 AM CDT [facility] ADMISSION HISTORY AND PHYSICAL Patient Name: Catia Carias Address: [address] [place] [id number] Age: 28 y.o. Sex: Female Admission Date/Time: 09/30/2018 4:11 AM Primary Care Provider: [facility] Admitting provider: [facility]-Hospitalist, Dr. Gonzalo Tavera Informant: patient as [...] open reduction internal fixation on 08/29/[address] Catia states that she was discharged [...] Oxycodone. Catia ended up being admitted at [address] 09/08/18 - 09/11/18 for acute pancreatitis which initially required Morphine SHAPING MACHINE TENDER for pain c ontrol. Catia followed up [...] vomited 6 times therefore she went to [place] [address] emergency department to be evaluated. Mario Alberto kang states that she only has abdominal pain when she is vomiting. She vomited multiple times in the emergency department. She was transferred to [facility] for further evaluation by Gastroenterology and states [...] file Gets together: Not on file Attends methodist service: Not on file Active member of [...] Tylenol Use: Presented as direct admission from [address] in [place] with abdominal pain and vomiting x 2 [...] open reduction internal fixation on 08/29/[address] Omar Rodriguez. Has been having uncontrolled neuropathic pain which has not responded to Gabapentin. Pain has minimally improved prior to admission with Percocet or Oxycodone. Treating pain with PRN IV Morphine. If pain remains uncontrolled may need to consider SHAPING MACHINE TENDER. Consulted Orthopedics for assistance with management. Defer further imaging to Orthopedics. I'm worried about progressive or new ulnar nerve impingement or damage. Will start gabapentin 300 mg TID. 3. Recent Pancreatitis: Was admitted at [address] in [place] 09/08/2018 - 09/11/2018 for pancreatitis. Etiology was [...] our joint decision making. Kimberly Rosas PA-C [facility] Medicine Service Pager: [phone] ADDENDUM: Chart reviewed. Patient seen and examined [...] Tavera MD, Hospitalist Internal Medicine and Pediatrics [facility] Medicine Pager: [phone] documented in this encounter Consult Notes Xuan Block, FURNACE STOCK INSPECTOR, REGISTERED PUBLIC HEALTH NURSE - 09/30/2018 2:24 PM CDTAssociated Order(s): CONSULT ORTHOPEDIC SURGERY ORTHOPEDIC CONSULT CHIEF COMPLAINT: left arm nerve pain HISTORY of PRESENT ILLNESS: Catia Carias is a 28 y.o. year old female who had an orif of her left distal humerus in [place] on 08/29/18. She has had 2 f/u [...] concerns. Discussed with Hospital medicine. Xuan Block, AYRITZA, REGISTERED PUBLIC HEALTH NURSE Felicita Dia PA-C - 09/30/2018 10:19 AM CDTAssociated Order(s): CONSULT GASTROENTEROLOGY Images from the original note were not included. GI CONSULT SERVICE CONSULT NOTE Patient Name: Catia Carias Admission Date/Time: 09/30/2018 4:11 AM [facility] Conrad [facility] Attending Physician: Mele-Hospitalist I was asked to [...] on NAC protocol. She was transferred to [facility]. PAST MEDICAL HISTORY: Past Medical History: Diagnosis [...] continue to follow. Felicita Dia PA-C [facility] Digestive Health Pager: [employer] Weekends and after 5 p.m., call [phone] documented in this encounter Nursing Notes Jyoti [...] d/c. Should d/c needs arise, please page/call Parole Agent to update. Care management is available should further needs arise. Barriers to discharge: Medical stability Care management will continue to follow. Ivet Bob RN Case Manager 2W Observation Unit Pager: [phone] documented in this encounter Miscellaneous Notes Result Encounter Note - Sammy Mack PA-C - 10/02/2018 12:02 PM CDT SAMMY Screen positive. Forwarded to Dr. Tavera. Sammy Mack PA-C [facility] Medicine Service Pager: [phone] Med Reconciliation - Emperatriz Corral - 09/30/2018 1:52 PM CDT PHARMACY MEDICATION RECONCILIATION NOTE MEDICATION RECONCILIATION on admission by pharmacy has been completed. Prior to admission medications were reviewed with patient and [employer] presciption refill information. The ELECTRIC LIFT TRUCK DRIVER medication list has been updated and reflected in the chart below. Please use the ELECTRIC LIFT TRUCK DRIVER medication section for ordering home doses during admission. Medication related issues including pertinent changes made to the ELECTRIC LIFT TRUCK DRIVER list by pharmacy: (discrepancies, interactions, additions, removal, [...] care of this patient. Emperatriz Corral Phone #:[phone] or [phone] Time spent reconciling meds:20 min documented in [...] Signature PROTIME 12.9 10.0 - 13.0 10/02/2018 [facility] sec. 8:58 AM CDT HEALTH LABORATORY INR 1.2 1.0 - 1.2 10/02/2018 [facility] 8:58 AM CDT [facility] LABORATORY Specimen Anatomical Collection Method Collection Time Receive d Time (Source) Location / / Volume Laterality Blood 10/02/2018 8:23 AM 9 8:40 CDT AM CDT Kimberly Rosas PA-C COAGULATION ORDERABLE Performing Organization Address City/[facility]/ZIP Code Phon e Number [facility] [address] [place] [address] [phone] LABORATORY Smooth Muscle Antibody (10/02/2018 8:22 AM CDT) [facility] Method Time Signature Smooth Muscle Negative Negative 10/04/2018 [facility] Screen 10:17 AM CDT LABORATORIES Comment: ADDITIONAL INFORMATIO N This test was developed and its performa nce characteristics determined by [facility] in a manner co nsistent with CLIA requirements. This test has not been norah ared or approved by the U.S. Food and Drug Administration. Test Performed by: [facility] [address] [place], [place] [address] Specimen Anatomical Collection Method Collection Time Receive d Time (Source) Location / / Volume Laterality Blood 10/02/2018 8:22 AM 9 8:39 CDT AM CDT Criselda Coker MD SEND OUT ORDERABLE Performing Organization Address City/[facility]/ZIP Code Phon e Number [facility] [employer] [address] [place] [address] (ABNORMAL) CBC- Daily AM (10/02/2018 8:22 AM CDT)Only the most recent of2 resultswithin the time period is included. [facility] Method Time Signature WBC 7.5 4.3 - 10.8 10/02/2018 [facility] K/uL 8:45 AM CDT HEALTH LABORATORY RBC 3.77 (L) 4.20 - 10/02/2018 [facility] 5.40 M/uL 8:45 AM CDT HEALTH LABORATORY HEMOGLOBIN 13.0 12.0 - 10/02/2018 [facility] 16.0 gm/dL 8:45 AM CDT HEALTH LABORATORY HEMATOCRIT 39.2 36.0 - 10/02/2018 [facility] 48.0 % 8:45 AM CDT HEALTH LABORATORY MCV 104 (H) 80 - 100 10/02/2018 [facility] fl 8:45 AM CDT HEALTH LABORATORY MCH 35 (H) 27 - 33 pg 10/02/2018 [facility] 8:45 AM CDT HEALTH LABORATORY MCHC 33 33 - 36 10/02/2018 [facility] gm/dL 8:45 AM T HEALTH LABORATORY RDW 13.3 11.5 - 10/02/2018 [facility] 14.5 % 8:45 AM CDT HEALTH LABORATORY PLATELET COUNT 218 150 - 400 10/02/2018 [facility] K/UL 8:[address] [facility] HEALTH LABORATORY MPV 10.3 6.5 - 12 10/02/2018 [facility] 8:45 AM T HEALTH LABORATORY Specimen Anatomical Collection Method Collection Time Receive d Time (Source) Location / / Volume Laterality Blood 10/02/2018 8:22 AM 9 8:41 CDT AM CDT Marli Girard RN HEMATOLOGY ORDERABLE Performing Organization Address City/State/ZIP Code Phon e Number [facility] [address] [place] [address] LABORATORY Lipase (10/02/2018 8:22 AM CDT)Only the most recent of3 resultswithin the time period is included. P athologist Signature LIPASE 221 73 - 350 10/02/2018 [facility] IU/L 9:06 AM CDT HEALTH LABORATORY Specimen Anatomical Collection Method Collection Time Receive d Time (Source) Location / / Volume Laterality Blood 10/02/2018 8:22 AM 9 8:40 CDT AM CDT Kimberly Rosas PA-C CHEMISTRY ORDERABLE Performing Organization Address City/State/ZIP Code Phon e Number [facility] [address] [place] [address] LABORATORY (ABNORMAL) Basic Metabolic Profile Daily AM (10/02/2018 8:22 AM CDT)Only the most recent of4 resultswithin the time period is included. [facility] Method Time Signature SODIUM 140 136 - 145 10/02/2018 [facility] mmol/L 9:18 AM [facility] LABORATORY POTASSIUM 4.1 3.5 - 5.1 10/02/2018 [facility] mmol/L 9:18 AM [facility] LABORATORY CHLORIDE 107 98 - 112 10/02/2018 [facility] mmol/L 9:18 AM [facility] LABORATORY CARBON DIOXIDE 28 21 - 32 10/02/2018 [facility] mmol/L 9:18 AM [facility] LABORATORY BUN (UREA 1 (L) 7 - 24 10/02/2018 [facility] NITRO) mg/dL 9:18 AM [facility] LABORATORY CREATININE 0.35 (L) 0.55 - 10/02/2018 [facility] 1.02 mg/dL 9:18 AM [facility] LABORATORY EST GFR >60 >60 mL/min 10/02/2018 [facility] (CKD-EPI) 9:18 AM [facility] LABORATORY EST GFR IF >60 >60 mL/min 10/02/2018 [facility] AM 9:18 AM [facility] LABORATORY GLUCOSE 100 74 - 106 10/02/2018 [facility] mg/dL 9:18 AM [facility] LABORATORY CALCIUM, SERUM 8.6 8.5 - 10.1 10/02/2018 [facility] mg/dL 9:18 AM [facility] LABORATORY ANION GAP 5.0 0.0 - 15.0 10/02/2018 [facility] mmol/L 9:18 AM [facility] LABORATORY Specimen Anatomical Collection Method Collection Time Receive d Time (Source) Location / / Volume Laterality Blood 10/02/2018 8:22 AM 9 8:40 CDT AM CDT Kimberly Rosas PA-C CHEMISTRY ORDERABLE Performing Organization Address City/State/ZIP Code Phon e Number [facility] [address] [place] [address] [phone] LABORATORY (ABNORMAL) Liver Profile (10/02/2018 8:22 AM CDT)Only the most recent of5 resultswithin the time period is included. Analysis Performed At Patho logist Time Signature ALT 271 (H) 12 - 68 10/02/2018 [facility] IU/L 9:18 AM [facility] LABORATORY ALKALINE 165 (H) 45 - 117 10/02/2018 [facility] P'TASE IU/L 9:18 AM [facility] LABORATORY AST (SGOT) 274 (H) 12 - 37 10/02/2018 [facility] IU/L 9:18 AM [facility] LABORATORY PROTEIN TOTAL 6.0 (L) 6.4 - 8.2 10/02/2018 [facility] g/dL 9:18 AM [facility] LABORATORY ALBUMIN 3.0 (L) 3.4 - 5.0 10/02/2018 [facility] g/dL 9:18 AM [facility] LABORATORY BILIRUBIN-DIRE 0.56 (H) 0.05 - 10/02/[address] [facility] [address] 0.24 mg/dL 9:18 AM [facility] LABORATORY BILIRUBIN-TOTA 1.2 (H) 0.2 - 1.0 10/02/2018 [facility] L mg/dL 9:18 AM [facility] LABORATORY Specimen Anatomical Collection Method Collection Time Receive d Time (Source) Location / / Volume Laterality Blood 10/02/2018 8:22 AM 9 8:40 CDT AM CDT Kimberly Rosas PA-C CHEMISTRY ORDERABLE Performing Organization Address City/State/ZIP Code Phon e Number [address] [place] [address] LABORATORY Magnesium (10/02/2018 8:22 AM CDT)Only the most recent of4 resultswithin the time period is included. P athologist Signature Magnesium 2.0 1.8 - 2.4 10/02/2018 [facility] mg/dL 9:07 AM [facility] LABORATORY Specimen Anatomical Collection Method Collection Time Receive d Time (Source) Location / / Volume Laterality Blood 10/02/2018 8:22 AM 9 8:40 CDT AM CDT Robby Conrad MD CHEMISTRY ORDERABLE Performing Organization Address City/State/ZIP Code Phon e Number [address] [place] [address] LABORATORY Potassium, Serum (10/01/2018 8:16 PM CDT)Only the most recent of3 resultswithin the time period is included. P athologist Signature POTASSIUM 4.2 3.5 - 5.1 10/01/2018 [facility] mmol/L 8:50 PM CDT HEALTH LABORATORY Specimen Anatomical Collection Method Collection Time Receive d Time (Source) Location / / Volume Laterality Blood 10/01/2018 8:16 PM 9 8:32 CDT PM CDT Marli Girard RN CHEMISTRY ORDERABLE Performing Organization Address City/State/ZIP Code Phon e Number [address] [place] [address] [phone] LABORATORY (ABNORMAL) Acetaminophen (10/01/2018 4:43 PM CDT)Only the most recent of3 resultswithin the time period is included. Patholo gist Method Time Signature ACETAMINOPHEN 2 (L) 10 - 30 10/01/2018 [facility] (TYLENOL) ug/mL 5:34 PM CDT HEALTH LABORATORY Specimen Anatomical Collection Method Collection Time Receive d Time (Source) Location / / Volume Laterality Blood 10/01/2018 4:43 PM 9 5:07 CDT PM CDT Erika Silver DO CHEMISTRY ORDERABLE Performing Organization Address City/State/ZIP Code Phon e Number [address] [place] [address] [phone] LABORATORY (ABNORMAL) IgG (10/01/2018 7:08 AM CDT) P athologist Signature IGG 530 (L) 700-1,600 10/01/2018 [facility] mg/dL 2:03 PM CDT HEALTH LABORATORY Specimen Anatomical Collection Method Collection Time Receive d Time (Source) Location / / Volume Laterality Blood 10/01/2018 7:08 AM 9 7:22 CDT AM CDT Criselda Coker MD CHEMISTRY ORDERABLE Performing Organization Address City/[facility]/ZIP Code Phon e Number [address] [place] [address] LABORATORY (ABNORMAL) SAMMY Screen (10/01/2018 7:08 AM CDT) Analysis Performed At Patho logist Time Signature SAMMY SCRN Positive (A) Negative 10/03/2018 [facility] 1:37 PM CDT HEALTH LABORATORY Specimen Anatomical Collection Method Collection Time Receive d Time (Source) Location / / Volume Laterality Blood 10/01/2018 7:08 AM 9 7:22 CDT AM CDT Criselda Coker MD CHEMISTRY ORDERABLE Performing Organization Address City/State/ZIP Code Phon e Number [facility] [address] [place] [address] LABORATORY XR ELBOW LT (09/30/2018 1:16 PM [...] SIGNED BY DR. Lloyd Arcos Xuan Block FURNACE STOCK INSPECTOR, REGISTERED PUBLIC HEALTH NURSE XRAY ORDERABLE Hepatitis A/B/C Panel (09/30/2018 6:42 AM CDT) Patholo gist Method Time Signature HEP BC IGM DELBERT Non-Reacti Non-Reacti 09/30/2018 [facility] ve 8:24 AM CDT HEALTH LABORATORY HEP A IGM DELBERT Non-Reacti Non-Reacti 09/30/2018 [facility] L ve ve 8:24 AM CDT HEALTH LABORATORY HEP BS ANTIGEN Non-Reacti Non-Reacti 09/30/2018 [facility] AL ve ve 8:24 AM CDT HEALTH LABORATORY Hepatitis C Non-Reacti Non-Reacti 09/30/2018 [facility] Antibody ve ve 8:24 AM CDT HEALTH LABORATORY Specimen Anatomical Collection Method Collection Time Receive d Time (Source) Location / / Volume Laterality Blood 09/30/2018 6:42 AM 9 6:59 CDT AM CDT Robby Conrad MD IMMUNOLOGY ORDERABLE Performing Organization Address City/[facility]/ZIP Code Phon e Number [address] [address] LABORATORY Lactic Acid (09/30/2018 6:42 AM CDT) P athologist Signature LACTIC ACID 1.9 0.7 - 2.1 09/30/2018 [facility] mmol/L 7:03 AM T [facility] LABORATORY Specimen Anatomical Collection Method Collection Time Receive d Time (Source) Location / / Volume Laterality Blood 09/30/2018 6:42 AM 9 7:00 CDT AM CDT Robby Conrad MD CHEMISTRY ORDERABLE Performing Organization Address City/[facility]/ZIP Code Phon e Number [address] [address] LABORATORY (ABNORMAL) CBC / Diff (09/30/2018 6:42 AM CDT) Patholo gist Method Time Signature WBC 14.6 (H) 4.3 - 09/30/2018 [facility] 10.8 K/uL 6:59 AM T HEALTH LABORATORY RBC 3.90 (L) 4.20 - 09/30/2018 [facility] 5.40 M/uL 6:59 AM T HEALTH LABORATORY HEMOGLOBIN 13.6 12.0 - 09/30/2018 [facility] 16.0 6:59 AM T HEALTH gm/dL LABORATORY HEMATOCRIT 39.9 36.0 - 09/30/2018 [facility] 48.0 % 6:59 AM CDT HEALTH LABORATORY MCV 102 (H) 80 - 100 09/30/2018 [facility] fl 6:59 AM CDT HEALTH LABORATORY MCH 35 (H) 27 - 33 09/30/2018 [facility] pg 6:59 AM CDT HEALTH LABORATORY MCHC 34 33 - 36 09/30/2018 [facility] gm/dL 6:59 AM CDT HEALTH LABORATORY RDW 13.2 11.5 - 09/30/2018 [facility] 14.5 % 6:59 AM CDT HEALTH LABORATORY PLATELET COUNT 257 150 - 400 09/30/2018 [facility] K/UL 6:59 AM CDT HEALTH LABORATORY MPV 9.7 6.5 - 12 09/30/2018 [facility] 6:59 AM CDT HEALTH LABORATORY PMN % 90.9 % 09/30/2018 [facility] 6:59 AM CDT HEALTH LABORATORY IG% 0.3 <=1.0 % 09/30/2018 [facility] 6:59 AM CDT HEALTH LABORATORY LYMPH % 5.1 % 09/30/2018 [facility] 6:59 AM CDT HEALTH LABORATORY MONO % 3.2 % 09/30/2018 [facility] 6:59 AM CDT HEALTH LABORATORY EOS % 0.3 % 09/30/2018 [facility] 6:59 AM CDT HEALTH LABORATORY BASO % 0.2 % 09/30/2018 [facility] 6:59 AM CDT HEALTH LABORATORY PMN ABSOLUTE 13.28 (H) 1.80 - 09/30/2018 [facility] 7.80 K/uL 6:59 AM CDT HEALTH LABORATORY IG ABSOLUTE 0.05 K/uL 09/30/2018 [facility] 6:59 AM CDT HEALTH LABORATORY LYMPH ABSOLUTE 0.74 (L) 1.00 - 09/30/2018 [facility] 4.00 K/uL 6:59 AM CDT HEALTH LABORATORY MONO ABSOLUTE 0.47 0.00 - 09/30/2018 [facility] 1.00 K/uL 6:59 AM CDT HEALTH LABORATORY EOS ABSOLUTE 0.04 0.00 - 09/30/2018 [facility] 0.45 K/uL 6:59 AM CDT HEALTH LABORATORY BASO ABSOLUTE 0.03 0.00 - 09/30/2018 [facility] 0.20 K/uL 6:59 AM CDT HEALTH LABORATORY NUCL RBC % 0.0 0.0 - 0.0 09/30/2018 [facility] /100 WBC 6:59 AM CDT HEALTH LABORATORY NUCL RBC 0.00 K/uL 09/30/2018 [facility] ABSOLUTE 6:59 AM CDT HEALTH LABORATORY Specimen Anatomical Collection Method Collection Time Receive d Time (Source) Location / / Volume Laterality Blood 09/30/2018 6:42 AM 9 6:56 CDT AM CDT Robby A Matter HEMATOLOGY ORDERABLE Performing Organization Address City/State/ZIP Code Phon e Number [facility] [address] [place] [address] LABORATORY documented in this encounter Visit Diagnoses [...] Provider: Aaliyah Mistry, MARIAA)[id number] (Given - Provider: Ciara Booker, MARIAA) 1-2 mg, Intravenous, EVERY 1 [...] Provider: Evi Londono, RN)[id number] (Given - Provider: Marli Girard, MARIAA)[id number] [...] 15mg. documented in this encounter Care Teams Ecological Modeler Relationship Specialty Start Date End Date [facility], [facility] PCP - General 09/30/18 [address] [place] [id number] [facility] PCP - Primary Care Clinic [address] [place] [address] documented as of this encounter
--- OUTSIDE RECORDS SUMMARY | 2022-02-12 20:38 | XMS_ITS | Encounter Summary ---
:1990 Author Care Team Providers Name Role Phone Ervin Schroeder MD Primary Care Provider [phone] Sandoval Soniya [facility] OTHER [phone] Parris Knight (Mother) Patient Designee [phone] Jairo Rodriguez FLAVORER Nurse Practitioner [phone] Matthew Rollins MD Transplant Security Shift Manager [phone] [facility] Care Team Palliative Care [phone] Taylor Paul RN Palliative Care [phone] Zenobia Kirby [facility] Plant Anatomist [phone] Reason for Visit Transition of Care Assessment [...] care for herself during the day. Scheduled FLAVORER follow up for next week. Nurse advised [...] Education provided. Next Steps: Patient outreach in [facility] 3-4 weeks. [Research resources]. Taylor Paul RN Discussion Note: None recorded.Patient educational handouts: No information available. Plan of Care Patient Instructions [facility] or concerns. Reminders Provider Appointments [...] Unknown. Past Encounters 11/27/2021 Taylor Paul RN: [address] [place] [phone], Ph. 11/05/2021 Jairo Silvano Jennifer, DIRECTOR OF PURCHASING: [address] [place] [address], Ph. [phone] History of Present Illness Note: <div>Contact: Nurse performed follow-up visit via {{phone* face to face video}}. Patients' name and date of verified. </div><div>Patient story is presented {{entirely primarily*}} by the {{patient* patient's brother patient's [id number] patient's caregiver patient's daughter patient's [id number] patient's friend patient's grandchild patient's patient's sister patient's [id number] patient's son patient's son-in-law patient's }} . 31 year-old, {{female* male}} with a reported history of alcoholic cirrhosis and acute respiratory failure who ap pears {{alert, oriented and answering questions appropriately* confused and not answering questions appropriately}}. </div><div>
</div><div>Start time: {{ 3:00pm#}} Stop time: {{ 3:20pm#}}</div><div>Clinician Located: {{Clinician Home Address* [place] Address Patient?s Home Address}} </div><div>Patient physically located at: {{Patient's Home Address* JAIL Location, Name of Facility, City/State SNF Location, Name of Facility, City/State LTC Location, Name of Facility, City/State Other Location, City, State}}</div><div>
</div> Review of Systems None recorded. Physical Exam None recorded.
--- NOTE | 2022-02-12 21:03 | ED_ITS ---
History of Present Illness General Date Seen: 02/12/22 Chief Complaint: Unspecified Complaint, Adult Stated Complaint: BLOODY NOSE THAT WON'T STOP Time Seen by Provider: 02/12/22 19:52 Source: patient Mode of arrival: ambulatory Limitations: no limitations History of Present Illness HPI Narrative: Patient is a 31-year-old female who presents here with epistaxis she has had this at of her left nares all day, she has had this before in the past, she does not feel lightheaded, had her blood drawn earlier today. She unfortunately has a history of end-stage liver disease. Elevated INR secondary to this and low platelet count. She thinks she may have been swallowing some the blood was a little unsure about this. Denies any chest pain shortness of breath any syncopal episodes. She has use the nasal clamp before to effectively stop the bleeding, has never had a prolonged pack in place. Location: Yes left naris Onset/current episode: Yes day(s) Duration: Yes intermittent Context: Yes history of previous nose bleed Treatment prior to arrival: Yes none, Yes nose pinching and Yes stuff nose with tissue Related Data Home Medications Medication Instructions Recorded Confirmed folic acid 1 mg tablet 1 mg PO QDAY 10/31/21 01/31/22 levonorgestrel 20 mcg/24 hours (8 1 device intrauterine ONCE 10/31/21 01/31/22 yrs) 52 mg intrauterine device furosemide 20 mg tablet 40 mg PO QAM 11/12/21 01/31/22 ondansetron 8 mg disintegrating 8 mg PO TID PRN 11/12/21 01/31/22 tablet thiamine HCl (vitamin B1) 100 mg 100 mg PO QDAY 11/12/21 01/31/22 tablet diazepam 5 mg tablet 5 mg PO HS 01/31/22 01/31/22 ergocalciferol (vitamin D2) 1,250 50,000 unit PO QWEEK 01/31/22 01/31/22 mcg (50,000 unit) capsule gabapentin 300 mg capsule 600 mg PO QHS 01/31/22 01/31/22 magnesium oxide 400 mg PO BID 01/31/22 01/31/22 promethazine 25 mg tablet 25 mg PO Q6H PRN 01/31/22 01/31/22 ropinirole 2 mg tablet 2 mg PO QHS 01/31/22 01/31/22 Previous Rx's Medication Instructions Recorded pantoprazole 40 mg tablet,delayed 40 mg PO QDAY #30 tabs 11/25/21 release rifaximin 550 mg tablet (Xifaxan) 550 mg PO BID #60 tabs 11/25/21 magnesium oxide 400 mg PO BID #180 caps 12/04/21 vitamin A 10,000 unit capsule 10,000 unit PO .COMPLEX #40 caps 12/04/21 zinc sulfate 50 mg zinc (220 mg) 50 mg PO QDAY #90 caps 12/04/21 capsule cyclobenzaprine 5 mg tablet 5 mg PO QDAY PRN muscle spasm #15 01/09/22 tabs acetaminophen 500 mg tablet 500 mg PO Q6H PRN pain #60 tabs 01/16/22 (Tylenol Extra Strength) cholecalciferol (vitamin D3) 10 10 mcg PO QDAY #30 caps 01/16/22 mcg (400 unit) capsule diclofenac sodium 1 % topical gel 2 g topical QID #100 grams 01/16/22 (Voltaren Arthritis Pain) lactulose 10 gram/15 mL oral 20 g (30 mL) PO TID #946 mL 01/16/22 solution lidocaine 5 % topical patch 1 patch topical QDAY #30 ea 01/16/22 spironolactone 50 mg tablet 50 mg PO QDAY #30 tabs 01/16/22 Allergies Allergy/AdvReac Type Severity Reaction Status Date / Time azithromycin Allergy Unknown Vomiting Verified 01/31/22 03:44 gabapentin Allergy Unknown Uncoded 12/28/21 22:18 Review of Systems Status of ROS: Reports: 10 or more systems reviewed and unremarkable except as noted in History and below [facility] Medical History Abdominal ascites Allergic rhinitis Anemia in chronic kidney disease Attention deficit hyperactivity disorder (ADHD) Chronic leg pain Chronic pancreatitis (01/23/21) Congenital QT prolongation on electrocardiography (01/30/21) Gastroesophageal reflux disease without esophagitis (04/16/19) Generalized anxiety disorder with panic attacks Hepatic cirrhosis Hepatic encephalopathy Hepatic neuropathy History of migraine Insomnia Malpositioned intrauterine device (IUD) Patent foramen ovale (03/2020) Pyelonephritis Restless legs syndrome Stage 4 chronic kidney disease Tobacco abuse Vitamin D deficiency Surgical History History of foot surgery Status post hardware removal (06/27/19) Family History Father Hyperlipidemia Maternal Grandfather High blood pressure Prostate cancer Other Type 2 diabetes mellitus Social History Narrative: marijuana use single, no kids, Олег Ochoa, smoker, sober x 1 year Smoking Status: Former smoker Do you use any of these nicotine containing products: None Second hand tobacco smoke exposure: No How often do you have a drink containing alcohol: never AUDIT-C Alcohol total score: 0 Non-prescribed substance use: denies use Exam Narrative: Exam Narrative: Patient is seen and she actually looks better than I have seen her in a long time. She is having no creeped bleeding, out of her left nose, there is a little bit of clot, it appears to be in the mid position, not in the anterior portion. It however was affectively use the nasal clamp, for on for 20 minutes before I saw her, her posterior pharynx does not show any evidence of any bleeding, there is no lymphadenopathy, she is interacting otherwise normally. The right nares is normal. Const: Vital Signs, click to edit/add: Vital Signs - 24 hr 02/12/22 19:35 Temperature 97.6 F Pulse Rate [Right Pulse Oximeter] 95 Respiratory Rate 18 Blood Pressure [Ri ght Upper Arm] 110/78 Pulse Oximetry 99 Oxygen Delivery Me thod Room Air Documenting provider has reviewed patient's vital signs: yes Course Course Hospital Course: She was watched for approximately 2 hours here, she had really no bleeding, her hemoglobin returned at 8.8 which is actually excellent for her. Platelet count is low but this is a known phenomenon, did not do an INR kids it would not be that helpful. I did offer to put a nasal pack in for her she declined this intervention thinking that she feels like that the nasal clamp alone will help her, give her some advice with this, and she will return if she has any further bleeding or questions. I asked her not to pick her nose sneeze cough for do anything like that. Vital Signs Vital signs: Initial Vital Signs Temperature 97.6 F 02/12/22 19:35 Temperature Source Temporal Artery Scan 02/12/22 19:35 Pulse Rate 95 02/12/22 19:35 Respiratory Rate 18 02/12/22 19:35 Blood Pressure 110/78 02/12/22 19:35 Blood Pressure Mean 88 02/12/22 19:35 Blood Pressure Position Sitting 02/12/22 19:35 Pulse Oximetry 99 02/12/22 19:35 Oxygen Delivery Method 02/12/22 19:35 Vital Signs Temperature 97.6 F 02/12/22 19:35 Pulse Rate 95 02/12/22 19:35 Respiratory Rate 18 02/12/22 19:35 Blood Pressure 110/78 02/12/22 19:35 Pulse Oximetry 99 02/12/22 19:35 Oxygen Delivery Method 02/12/22 19:35 Temperature 97.6 F 02/12/22 19:35 Pulse Rate 95 02/12/22 19:35 Respiratory Rate 18 02/12/22 19:35 Blood Pressure 110/78 02/12/22 19:35 Pulse Oximetry 99 02/12/22 19:35 Oxygen Delivery Method 02/12/22 19:35 MDM - Epistaxis Lab Data Labs: Lab Results 02/12/22 Range/Units 20:11 WBC 5.16 (4.50-11.00) K/uL RBC 2.51 L (4.00-5.20) m/uL Hgb 8.8 L (12.0-16.0) gm/dL Hct 25.5 L (33.0-51.0) % MCV 102 H (80-100) fL MCH 35 H (26-34) pg MCHC 35 (32-36) gm/dL RDW Coeff of Yamileth 21.7 H (11.5-15.5) % Plt Count 56 L (140-440) K/uL Neut % (Auto) 77.1 H (42.0-72.0) % Lymph % (Auto) 12.0 L (20-44) % [place] % (Auto) 9.1 (0.0-11.0) % Eos % (Auto) 1.2 (0.0-7.0) % Baso % (Auto) 0.4 (0.0-3.0) % Neut # (Auto) 4.00 (1.7-7.0) K/uL Lymph # (Auto) 0.60 L (0.90-2.90) K/uL [place] # (Auto) 0.50 (0.00-0.90) K/UL Eos # (Auto) 0.06 (0.00-0.50) K/uL Baso # (Auto) 0.02 (0.00-0.30) K/uL Abs Immat Gran (auto) 0.01 (0.00-0.30) K/uL Discharge Plan Discharge Clinical Impression: Acute anterior epistaxis, Anemia, Hepatic cirrhosis Patient Disposition: Home, Self-Care Condition: Stable Instructions: Nosebleed (ED) Additional Instructions: Home, rest, use of nasal clamp, 20 minutes on off for 10-15 minutes and then repeat. If your bleeding does not stop her worsens the need to come back and we will put a pack in your nose. I would be reassured by your hemoglobin at the present time. Prescriptions: No Action levonorgestrel 20 mcg/24 hours (7 yrs) 52 mg intrauterine device 1 device intrauterine ONCE folic acid 1 mg tablet 1 mg PO QDAY Label Comments: TAKE 1 TABLET BY MOUTH DAILY ergocalciferol (vitamin D2) 1,250 mcg (50,000 unit) capsule 50,000 unit PO QWEEK Label Comments: TAKE 1 CAPSULE BY MOUTH ONCE A WEEK magnesium oxide 400 mg magnesium capsule 400 mg PO BID promethazine 25 mg tablet 25 mg PO Q6H PRN ropinirole 2 mg tablet 2 mg PO QHS gabapentin 300 mg capsule 600 mg PO QHS diazepam 5 mg tablet 5 mg PO HS furosemide 20 mg tablet 40 mg PO QAM ondansetron 8 mg tablet,disintegrating 8 mg PO TID PRN thiamine HCl (vitamin B1) 100 mg tablet 100 mg PO QDAY Label Comments: TAKE 1 TABLET BY MOUTH DAILY pantoprazole 40 mg tablet,delayed release (DR/EC) 40 mg PO QDAY Qty: 30 5RF Label Comments: TAKE 1 TABLET BY MOUTH DAILY Xifaxan 550 mg tablet 550 mg PO BID Qty: 60 5RF Label Comments: TAKE 1 TABLET BY MOUTH TWICE DAILY vitamin A 10,000 unit capsule 10,000 unit PO .COMPLEX Qty: 40 3RF Rx Instructions: 10,000 units PO 3 times a week; magnesium oxide 400 mg magnesium capsule 400 mg PO BID Qty: 180 3RF zinc sulfate 50 mg zinc (220 mg) capsule 50 mg PO QDAY Qty: 90 3RF cyclobenzaprine 5 mg tablet 5 mg PO QDAY PRN (Reason: muscle spasm) Qty: 15 0RF lactulose 10 gram/15 mL solution 20 g PO TID Qty: 946 0RF spironolactone 50 mg tablet 50 mg PO QDAY Qty: 30 0RF lidocaine 5 % adhesive patch,medicated 1 patch topical QDAY Qty: 30 0RF Rx Instructions: leave on most painful area for up to 12 hrs diclofenac sodium [Voltaren Arthritis Pain] 1 % gel 2 g topical QID Qty: 100 0RF Rx Instructions: apply to single elbow, wrist or hand; for hand includes palm/fingers/back of hand cholecalciferol (vitamin D3) 10 mcg (400 unit) capsule 10 mcg PO QDAY Qty: 30 0RF acetaminophen [Tylenol Extra Strength] 500 mg tablet 500 mg PO Q6H PRN (Reason: pain) Qty: 60 0RF Follow Up/Referrals: Ana Red PA-C [Primary Care Provider] - Stand Alone Forms: MyHealth Info Instructions
== END 2022-02-12 21:09 | disposition home or self-care (01) ==
PROVIDERS: Emergency Provider Family Medicine; PCP Internal Medicine
DX: R04.0 Epistaxis (principal); D64.9 Anemia, unspecified; K74.3 Primary biliary cirrhosis
CPT/HCPCS: 36415; 85025; 99283

== ENCOUNTER 2022-02-14 18:38 | Emergency (ER) | payer BC, SELFPAY ==
[2022-02-14 18:57] VITALS: BP 127/68; PULSE 122; RESP 22; TEMP 36.8; O2SAT 94; BMI 23.8
--- NOTE | 2022-02-14 21:51 | ED.BACK ---
HPI - Back Pain/Injury General Chief Complaint: Back Injury/Pain Stated Complaint: SEVERE BACK PAIN - 2 FRACTURES Time Seen by Provider: 02/14/22 21:34 History of Present Illness HPI Narrative: This 31-year-old woman has recently has become aware of numerous subacute compression fractures throughout her spine. Described as stabbing aching pain in her back somewhat generally. When she gets her belly pains it amplifies the back pain. Acknowledging that she is restricted to a prescriber, she is wondering if maybe we might wrap her back somehow as she is anticipating placement of a TLSO brace in 3 days time. She has been taking her oxycodone. She noted she did on the secondary to take 5 tablets 3 times during the day with no effect. She does not feel any different than taking acetaminophen. And then she just ended up being nauseated. Has a therapeutic paracentesis in 2 days. No fever. Related Data Home Medications Medication Instructions Recorded Confirmed folic acid 1 mg tablet 1 mg PO QDAY 10/31/21 01/31/22 levonorgestrel 20 mcg/24 hours (8 1 device intrauterine ONCE 10/31/21 01/31/22 yrs) 52 mg intrauterine device furosemide 20 mg tablet 40 mg PO QAM 11/12/21 01/31/22 ondansetron 8 mg disintegrating 8 mg PO TID PRN 11/12/21 01/31/22 tablet thiamine HCl (vitamin B1) 100 mg 100 mg PO QDAY 11/12/21 01/31/22 tablet diazepam 5 mg tablet 5 mg PO HS 01/31/22 01/31/22 ergocalciferol (vitamin D2) 1,250 50,000 unit PO QWEEK 01/31/22 01/31/22 mcg (50,000 unit) capsule gabapentin 300 mg capsule 600 mg PO QHS 01/31/22 01/31/22 magnesium oxide 400 mg PO BID 01/31/22 01/31/22 promethazine 25 mg tablet 25 mg PO Q6H PRN 01/31/22 01/31/22 ropinirole 2 mg tablet 2 mg PO QHS 01/31/22 01/31/22 Previous Rx's Medication Instructions Recorded pantoprazole 40 mg tablet,delayed 40 mg PO QDAY #30 tabs 11/25/21 release rifaximin 550 mg tablet (Xifaxan) 550 mg PO BID #60 tabs 11/25/21 magnesium oxide 400 mg PO BID #180 caps 12/04/21 vitamin A 10,000 unit capsule 10,000 unit PO .COMPLEX #40 caps 12/04/21 zinc sulfate 50 mg zinc (220 mg) 50 mg PO QDAY #90 caps 12/04/21 capsule cyclobenzaprine 5 mg tablet 5 mg PO QDAY PRN muscle spasm #15 01/09/22 tabs acetaminophen 500 mg tablet 500 mg PO Q6H PRN pain #60 tabs 01/16/22 (Tylenol Extra Strength) cholecalciferol (vitamin D3) 10 10 mcg PO QDAY #30 caps 01/16/22 mcg (400 unit) capsule diclofenac sodium 1 % topical gel 2 g topical QID #100 grams 01/16/22 (Voltaren Arthritis Pain) lactulose 10 gram/15 mL oral 20 g (30 mL) PO TID #946 mL 01/16/22 solution lidocaine 5 % topical patch 1 patch topical QDAY #30 ea 01/16/22 spironolactone 50 mg tablet 50 mg PO QDAY #30 tabs 01/16/22 Allergies Allergy/AdvReac Type Severity Reaction Status Date / Time azithromycin Allergy Unknown Vomiting Verified 01/31/22 03:44 gabapentin Allergy Unknown Uncoded 12/28/21 22:18 Review of Systems Status of ROS: Reports: 10 or more systems reviewed and unremarkable except as noted in History and below [facility] Medical History Abdominal ascites Allergic rhinitis Anemia in chronic kidney disease Attention deficit hyperactivity disorder (ADHD) Chronic leg pain Chronic pancreatitis (01/23/21) Congenital QT prolongation on electrocardiography (01/30/21) Gastroesophageal reflux disease without esophagitis (04/16/19) Generalized anxiety disorder with panic attacks Hepatic cirrhosis Hepatic encephalopathy Hepatic neuropathy History of migraine Insomnia Malpositioned intrauterine device (IUD) Patent foramen ovale (03/2020) Pyelonephritis Restless legs syndrome Stage 4 chronic kidney disease Tobacco abuse Vitamin D deficiency Surgical History History of foot surgery Status post hardware removal (06/27/19) Family History Father Hyperlipidemia Maternal Grandfather High blood pressure Prostate cancer Other Type 2 diabetes mellitus Social History Narrative: marijuana use single, no kids, Олег Ochoa, smoker, sober x 1 year Smoking Status: Former smoker Do you use any of these nicotine containing products: None Second hand tobacco smoke exposure: No How often do you have a drink containing alcohol: never AUDIT-C Alcohol total score: 0 Non-prescribed substance use: denies use Exam Narrative: Exam Narrative: Skin is dark/jaundiced, very evident scleral icterus. Fully alert but appears tired She is lying semi recumbent on her right side. Breathing easily. Begins moaning when I am lightly touching her low back. Here with significant other Lobito Is able to transition to stand later with walker at the side of the bed for placement of abdominal/back binder. Pain appears to be somewhat distractible. Const: Vital Signs, click to edit/add: Vital Signs - 24 hr 02/14/22 18:57 02/14/22 22:39 Temperature 98.3 F Pulse Rate [Right Pulse Oximeter] 122 H 100 Respiratory Rate 22 22 Blood Pressure [Ri ght Upper Arm] 127/68 131/73 Pulse Oximetry 94 94 Oxygen Delivery Me thod Room Air Room Air Documenting provider has reviewed patient's vital signs: yes Course Course Hospital Course: Discussed various options for pain management. They do have Voltaren gel/cream and Lidoderm patches. Was apparently discontinued on gabapentin. Oxycodone is still available. Reevaluation(s) Reevaluation #1: She is able to stand for placement of this abdominal/back binder. Does feel like this helps somewhat. She would still like some medications for pain; asking if could even get some acetaminophen. Apparently did take 500 mg of acetaminophen hour and half ago or so. Offer that we could give another 500 and then also a shot of ketorolac. Vital Signs Vital signs: Initial Vital Signs Temperature 98.3 F 02/14/22 18:57 Temperature Source Temporal Artery Scan 02/14/22 18:57 Pulse Rate 122 H 02/14/22 18:57 Respiratory Rate 22 02/14/22 18:57 Blood Pressure 127/68 02/14/22 18:57 Blood Pressure Mean 87 02/14/22 18:57 Blood Pressure Position Sitting 02/14/22 18:57 Pulse Oximetry 94 02/14/22 18:57 Oxygen Delivery Method 02/14/22 18:57 Vital Signs Temperature 98.3 F 02/14/22 18:57 Pulse Rate 122 H 02/14/22 18:57 Respiratory Rate 22 02/14/22 18:57 Blood Pressure 127/68 02/14/22 18:57 Pulse Oximetry 94 02/14/22 18:57 Oxygen Delivery Method 02/14/22 18:57 Temperature 98.3 F 02/14/22 18:57 Pulse Rate 100 02/14/22 22:39 Respiratory Rate 22 02/14/22 22:39 Blood Pressure 131/73 02/14/22 22:39 Pulse Oximetry 94 02/14/22 22:39 Oxygen Delivery Method 02/14/22 22:39 MDM - Back Pain/Injury MDM Narrative Medical decision making narrative: I suspect that ascites is amplifying her back pain. Medical Records Attestation: I reviewed the patient's medical records. Lab Data Attestation: I reviewed the patient's lab results. Discharge Plan Discharge Clinical Impression: Back pain, Abdominal ascites, Liver failure Patient Disposition: Home w/ Parent or Adult Condition: Improved Additional Instructions: Can wear this abdomen/back binder for comfort as you need. I would then also employ your multiple modalities of pain management including creams, patch, pills. Zofran from [facility] if you like and it's covered. Prescriptions: No Action levonorgestrel 20 mcg/24 hours (7 yrs) 52 mg intrauterine device 1 device intrauterine ONCE folic acid 1 mg tablet 1 mg PO QDAY Label Comments: TAKE 1 TABLET BY MOUTH DAILY ergocalciferol (vitamin D2) 1,250 mcg (50,000 unit) capsule 50,000 unit PO QWEEK Label Comments: TAKE 1 CAPSULE BY MOUTH ONCE A WEEK magnesium oxide 400 mg magnesium capsule 400 mg PO BID promethazine 25 mg tablet 25 mg PO Q6H PRN ropinirole 2 mg tablet 2 mg PO QHS gabapentin 300 mg capsule 600 mg PO QHS diazepam 5 mg tablet 5 mg PO HS furosemide 20 mg tablet 40 mg PO QAM ondansetron 8 mg tablet,disintegrating 8 mg PO TID PRN thiamine HCl (vitamin B1) 100 mg tablet 100 mg PO QDAY Label Comments: TAKE 1 TABLET BY MOUTH DAILY pantoprazole 40 mg tablet,delayed release (DR/EC) 40 mg PO QDAY Qty: 30 5RF Label Comments: TAKE 1 TABLET BY MOUTH DAILY Xifaxan 550 mg tablet 550 mg PO BID Qty: 60 5RF Label Comments: TAKE 1 TABLET BY MOUTH TWICE DAILY vitamin A 10,000 unit capsule 10,000 unit PO .COMPLEX Qty: 40 3RF Rx Instructions: 10,000 units PO 3 times a week; magnesium oxide 400 mg magnesium capsule 400 mg PO BID Qty: 180 3RF zinc sulfate 50 mg zinc (220 mg) capsule 50 mg PO QDAY Qty: 90 3RF cyclobenzaprine 5 mg tablet 5 mg PO QDAY PRN (Reason: muscle spasm) Qty: 15 0RF lactulose 10 gram/15 mL solution 20 g PO TID Qty: 946 0RF spironolactone 50 mg tablet 50 mg PO QDAY Qty: 30 0RF lidocaine 5 % adhesive patch,medicated 1 patch topical QDAY Qty: 30 0RF Rx Instructions: leave on most painful area for up to 12 hrs diclofenac sodium [Voltaren Arthritis Pain] 1 % gel 2 g topical QID Qty: 100 0RF Rx Instructions: apply to single elbow, wrist or hand; for hand includes palm/fingers/back of hand cholecalciferol (vitamin D3) 10 mcg (400 unit) capsule 10 mcg PO QDAY Qty: 30 0RF acetaminophen [Tylenol Extra Strength] 500 mg tablet 500 mg PO Q6H PRN (Reason: pain) Qty: 60 0RF Follow Up/Referrals: Ana Red PA-C [Primary Care Provider] - Stand Alone Forms: MyHealth Info Instructions
--- OUTSIDE RECORDS SUMMARY | 2022-02-14 21:58 | XMS_ITS | Encounter Summary ---
:1990 Author Organization [facility] Address [address] [place] [address] Care Team Providers Name Role Phone Ana Red VenturaLowell Primary Care Provider [phone] Encounter Details Date Type Department Care Team Description 02/10/2022 Orders Only Department of [facility] Ana Red , Internal Medicine in [place], [place] 300 [facility] 300 [facility] [place] [address] [phone] (Wo rk) Social History Tobacco [...] drinks on one occasion? No t asked Social Isolation Answer Date Recorded In a typical week, how many times do you More than three melony es a week 02/10/2022 talk on the phone with family, friends, or neighbors? How often do you get together with friends Once a week 02/10/2022 or relatives? How often do you attend episcopal or Patient refused 2021 evangelical services? 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 [address] [place] [phone] Virtual Visit Transplant Matthew Jerome 2 YKishore.B.SSuma, Lilian [address] [place] [address] [phone] Office Visit Gastroenterology and [facility] 2 Hepatology Tyrell Rodriguez M.D. [address] [place] [address] [phone] Appointment Radiology [facility] Matthew 2 YTyrell M.D. [address] [place] [address] [phone] Hospital Gastroenterology and [facility] Cirrhos is Alcoholic (HCC) 2 Encounter Hepatology Tyrell Rodriguez M.D. [address] [place] [phone] Anesthesia Event Gastroenterology and Rl, 2 Hepatology Ervin Burgos M.D. [address] [place] [phone] Surgery Gastroenterology and [facility] ESOPHAG OGASTRODUODENOSCOPY 2 Hepatology Tyrell Rodriguez M.D. 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 PCP - General Internal Medicine 12/01/[address] [place] [address] ADI Chua [phone] [facility] [place] lab 08/25/21 Ervin Schroeder MD Referring Provider Family Medicine 03/24/[address] [place] [address] documented as of this encounter
--- OUTSIDE RECORDS SUMMARY | 2022-02-14 21:58 | XMS_ITS | Encounter Summary ---
:1990 Author Organization [facility] Address [address] [place] [address] Care Team Providers Name Role Phone Ana Red P.A.-C. Primary Care Provider [phone] Reason for Referral Outpatient (Routine) - Authorized Specialty Diagnoses / Procedures Referred By Contact Refer red To Contact [facility] Internal Ana Red [facility] [place] [address] [place] [address] Referral ID Status Reason Start Date Expiration Date Visits V isits Requested Authorized [id number] Authorized 02/11/2022 02/10/2025 1 1 Reason for Visit Reason Comments Post Ed Visit Follow-up Recently found out she has 2 fractures in spine. Concerns about oxycodone use. Appointment Request (Routine) - Closed Specialty Diagnoses / Procedures Referred By Contact Refer brianda To Contact Community Internal Medicine Referral ID Status Reason Start Date Expiration Date Visits Requ ested Visits Authorized [id number] Closed 01/28/2022 01/28/2023 1 1 Encounter Details Date Type Department Care Team Description 02/11/2022 Office Visit Department of Carlos, Fracture T11-1 2 Wedge Compression Sequela (Primary Dx); Community Internal Ana, Cirrhosis Alcoholic (HCC); Medicine in [place] Hypertension Portal (HCC); [place], [place] [address] Thrombocytopenia (HCC); [address] [facility] [place], [place] Abnormal Liver Function Test ; [place] [address] Hepatic Encephalopathy Without Coma (HCC ); [phone] Fracture Lumbar First Wedge Compression Sequela Social History Tobacco Use Types Packs/Day Years [...] you attend taoism or Patient refused 2021 islam services? 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 [address] [place] [phone] Virtual Visit Transplant Matthew Jerome 2 YTyrell M.D. [address] [place] [phone] Office Visit Gastroenterology and Matthew Jerome 2 Hepatology Tyrell Rodriguez M.D. [address] [place] [address] [phone] Appointment Radiology LuisNew abdular 2 YTyrell M.D. [address] [place] [phone] Hospital Gastroenterology and Matthew Jerome Cirrhos is Alcoholic (HCC) 2 Encounter Hepatology Tyrell Rodriguez M.D. [address] [place] [address] [phone] Anesthesia Event Gastroenterology and Rl, 2 Hepatology Ervin Burgos M.D. [address] [place] [address] [phone] Surgery Gastroenterology and Matthew Jerome ESOPHAG OGASTRODUODENOSCOPY 2 Hepatology Tyrell Rodriguez M.D. [address] [place] [phone] Scheduled Orders Name Type Priority Associated Diagnoses Order S [facility] Basic Metabolic Panel Lab Routine Cirrhosis Alcoholic [...] Cirrhosis Alc oholic (HCC) 03/20/2022 8:45 AM LOG HAUL CHAIN FEEDER Hypertension Portal (HCC) Scheduled Referrals Name Type Priority Associated Diagnoses Order S [facility] Internal Outpatient Referral Routine Ex pected: Medicine office 02/11/2022 visit (clinic) (Approximate) , Expires: 05/14/2023 documented as of this encounter Visit Diagnoses Diagnosis Cirrhosis Alcoholic (HCC) Fracture T11-12 Wedge Compression Sequel a - Primary Cirrhosis Alcoholic (HCC) Hypertension Portal (HCC) Thrombocytopenia (HCC) Abnormal Liver Function Test Hepatic Encephalopathy Without Coma (HCC ) Fracture Lumbar First Wedge Compression Sequela Cirrhosis Alcoholic (HCC) Hypertension Portal (HCC) documented in this encounter Additional Health Concerns Assessment Noted Time PHQ-9 Depression Total Score: 10 10/06/2021 5:00 PM CD T documented as of this encounter Care Teams Farm Consultant Relationship Specialty Start Date End Date Ana Red P.A.-C. PCP - General Internal Medicine 12/01/[address] [place] [phone] [facility]- [place] lab 08/25/21 Ervin Schroeder MD Referring Provider Family Medicine 03/24/[address] [place] [phone] documented as of this encounter
--- OUTSIDE RECORDS SUMMARY | 2022-02-14 21:58 | XMS_ITS | Encounter Summary ---
:1990 Author Organization [facility] Address [address] [place] [address] Care Team Providers Name Role Phone Ana Red P.A.-C. Primary Care Provider [phone] Reason for Visit Reason Comments Med Refill Encounter Details Date Type Department Care Team Description 02/11/2022 Refill Department of [facility] Ana Red , Med Refill Internal Medicine in [place], [place] 300 [facility] 300 [facility] [place] [place] [address] [place] [address] [phone] Social History Tobacco Use Types Packs/Day Years [...] you attend mandaen or Patient refused 2021 hoahaoism services? 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 [address] [place] [phone] Virtual Visit Transplant Matthew Jerome 2 Joshua RodriguezBSumaBLilian Bedolla [address] [place] [phone] Office Visit Gastroenterology and LuisNew abdular 2 Hepatology Tyrell Rodriguez M.D. [address] [place] [phone] Appointment Radiology Matthew Jerome 2 Joshua RodriguezB.B.Lilian Stockton [address] [place] [phone] Hospital Gastroenterology and Matthew Jerome Cirrhos is Alcoholic (HCC) 2 Encounter Hepatology Tyrell Rodriguez M.D. [address] [place] [phone] Anesthesia Event Gastroenterology and Rl, 2 Hepatology Ervin Burgos M.D. [address] [place] [address] [phone] Surgery Gastroenterology and LuisNew abdular ESOPHAG OGASTRODUODENOSCOPY 2 Hepatology Joshua RodriguezBSumaBLilian Bedolla [address] [place] [phone] Scheduled Procedures Name Priority Associated Diagnoses Date/Time ESOPHAGOGASTRODUODENOSCOPY Cirrhosis Alc oholic (HCC) 03/20/2022 8:45 AM THERAPY TEACHER Hypertension Portal (HCC) documented as of this encounter Visit Diagnoses Not on filedocumented in this encounter Additional Health Concerns Assessment Noted Time PHQ-9 Depression Total Score: 10 10/06/2021 5:00 PM CD T documented as of this encounter Care Teams Seismograph Supervisor Relationship Specialty Start Date End Date Ana Red P.A.-C. PCP - General Internal Medicine 12/01/[address] [place] [phone] [facility] 08/25/21 Ervin Schroeder MD Referring Provider Family Medicine 03/24/[address] [place] [address] documented as of this encounter
--- OUTSIDE RECORDS SUMMARY | 2022-02-14 21:58 | XMS_ITS | Encounter Summary ---
:1990 Author Organization [facility] Address [address] [place] [address] Care Team Providers Name Role Phone Ana Red P.A.-C. Primary Care Provider [phone] Encounter Details Date Type Department Care Team Description 02/04/2022 Orders Only RST HIM Sara Gracia R, [address] [place] [phone] [place] [phone] (Wo rk) Social History Tobacco Use Types [...] you attend samaritan or Patient refused 2021 confucianist services? 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 [address] [place] [phone] Virtual Visit Transplant Matthew Jerome 2 YTyrell M.D. [address] [place] [address] [phone] Office Visit Gastroenterology and [place] Matthew 2 Hepatology Tyrell Rodriguez M.D. [address] [place] [phone] Appointment Radiology Alchantell Matthew 2 YTyrell M.D. [address] [place] [phone] Hospital Gastroenterology and [facility] Cirrhos is Alcoholic (HCC) 2 Encounter Hepatology Tyrell Rodriguez M.D. [address] [place] [phone] Anesthesia Event Gastroenterology and Rl, 2 Hepatology Ervin Burgos M.D. [address] [place] [phone] Surgery Gastroenterology and [facility] ESOPHAG OGASTRODUODENOSCOPY 2 Hepatology Tyrell Rodriguez M.D. [address] [place] [phone] Scheduled Procedures Name Priority Associated Diagnoses Date/Time ESOPHAGOGASTRODUODENOSCOPY Cirrhosis Alc oholic (HCC) 03/20/2022 8:45 AM TURBOGENERATOR OPERATOR Hypertension Portal (HCC) documented as of this encounter Visit Diagnoses Not on filedocumented in this encounter Additional Health Concerns Assessment Noted Time PHQ-9 Depression Total Score: 10 10/06/2021 5:00 PM CD T documented as of this encounter Care Teams Talent Agent Relationship Specialty Start Date End Date Ana Red P.A.-C. PCP - General Internal Medicine 12/01/[address] [place] [address] Sadia BAYADI WRIGHT [phone] [facility]21 Ervin Schroeder MD Referring Provider Family Medicine 03/24/[address] [place] [address] documented as of this encounter
--- OUTSIDE RECORDS SUMMARY | 2022-02-14 21:58 | XMS_ITS | Encounter Summary ---
:1990 Author Organization [facility] Address [address] [place] [address] Care Team Providers Name Role Phone Ana Red P.A.-C. Primary Care Provider [phone] Reason for Visit Transplant (Routine) - Closed Specialty Diagnoses / Procedures Referred By Contact Refer red To Contact Transplant Surgery / Adeline Frazier Royer Gannon M.D., Ph.D. [address] [place] [phone] Referral ID Status Reason Start Date Expiration Date Visits Requ ested Visits Authorized [id number] Closed 01/13/2022 01/12/2025 1 1 Encounter Details Date Type Department Care Team Description 02/12/2022 Office Visit [facility] Adeline Oconnor M.D., Ph.D. [address] [place] [phone] for Transplantation and Zenobia Hollingsworth M.A., L.A.D.C. Clinical Regeneration in [place], [place] [address] [place] [phone] Social History Tobacco Use Types Packs/Day [...] you attend taoism or Patient refused 2021 hoahaoism services? 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 [address] [place] [phone] Virtual Visit Transplant Matthew Jerome 2 Joshua RodriguezBSumaBLilian Bedolla [address] [place] [phone] Office Visit Gastroenterology and Matthew Jerome 2 Hepatology Tyrell Rodriguez M.D. [address] [place] [phone] Appointment Radiology Matthew Jerome 2 Joshua RodriguezBSumaBLilian Bedolla [address] [place] [phone] Hospital Gastroenterology and Queenie Matthew Cirrhos is Alcoholic (HCC) 2 Encounter Hepatology Joshua RodriguezBSumaBLilian Bedolla [address] [place] [phone] Anesthesia Event Gastroenterology and Rl, 2 Hepatology Ervin Burgos M.D. [address] [place] [phone] Surgery Gastroenterology and Matthew Jerome ESOPHAG OGASTRODUODENOSCOPY 2 Hepatology Joshua RodriguezB.BGraeme, Lilian [address] [place] [phone] Scheduled Procedures Name Priority Associated Diagnoses Date/Time ESOPHAGOGASTRODUODENOSCOPY Cirrhosis Alc oholic (HCC) 03/20/2022 8:45 AM VENTURE CAPITALIST Hypertension Portal (HCC) documented as of this encounter Visit Diagnoses Not on filedocumented in this encounter Additional Health Concerns Assessment Noted Time PHQ-9 Depression Total Score: 10 10/06/2021 5:00 PM CD T documented as of this encounter Care Teams Pickling Grader Relationship Specialty Start Date End Date Ana Red P.A.-C. PCP - General Internal Medicine 12/01/[address] [place] [phone] [facility] [place] lab 08/25/21 Ervin Schroeder MD Referring Provider Family Medicine 03/24/[address] [place] [address] documented as of this encounter
--- OUTSIDE RECORDS SUMMARY | 2022-02-14 21:58 | XMS_ITS | Encounter Summary ---
:1990 Author Organization [facility] Address [address] [place] [address] Care Team Providers Name Role Phone Ana Red P.A.-C. Primary Care Provider [phone] Encounter Details Date Type Department Care Team Description 02/13/2022 Clinical Communication Department of [facility] Perez Medicine in [address] [phone] [place], [place] [phone] (Work) [phone] Social History Tobacco Use Types Packs/Day Years [...] you attend gnosticism or Patient refused 2021 samaritan services? 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 [address] [place] [phone] Virtual Visit Transplant Matthew Jerome 2 YKishore.B.SSuma, Lilian [address] [place] [address] [phone] Office Visit Gastroenterology and [facility] Matthew 2 Hepatology Tyrell Rodriguez M.D. [address] [place] [address] [phone] Appointment Radiology Luischantell Matthew 2 YTyrell M.D. [address] [place] [address] [phone] Hospital Gastroenterology and [facility] Cirrhos is Alcoholic (HCC) 2 Encounter Hepatology Tyrell Rodriguez M.D. [address] [place] [address] [phone] Anesthesia Event Gastroenterology and Rl, 2 Hepatology Ervin Burgos M.D. [address] [place] [address] [phone] Surgery Gastroenterology and [facility] ESOPHAG OGASTRODUODENOSCOPY 2 Hepatology Tyrell Rodriguez M.D. [address] [place] [phone] Scheduled Procedures Name Priority Associated Diagnoses Date/Time ESOPHAGOGASTRODUODENOSCOPY Cirrhosis Alc oholic (HCC) 03/20/2022 8:45 AM METALIZING SUPERVISOR Hypertension Portal (HCC) documented as of this encounter Visit Diagnoses Not on filedocumented in this encounter Additional Health Concerns Assessment Noted Time PHQ-9 Depression Total Score: 10 10/06/2021 5:00 PM CD T documented as of this encounter Care Teams Machinery Rigger Relationship Specialty Start Date End Date Ana Red P.A.-C. PCP - General Internal Medicine 12/01/[address] [place] [address] ADI Chua [phone] [facility] 08/25/21 Ervin Schroeder MD Referring Provider Family Medicine 03/24/[address] [place] [address] documented as of this encounter
--- OUTSIDE RECORDS SUMMARY | 2022-02-14 21:58 | XMS_ITS | Encounter Summary ---
:1990 Author Organization [facility] Address [address] [place] [address] Care Team Providers Name Role Phone Ana Red P.A.-C. Primary Care Provider [phone] Encounter Details Date Type Department Care Team Description 02/10/2022 Documentation Division of Gastroenterology Elizabeth Bella, in [facility] M.B.B.S. [address] [facility] [address] [place] [address] [place], [place] [phone] Social History Tobacco Use Types Packs/Day Years [...] you attend rastafari or Patient refused 2021 taoism services? Do you belong to any clubs or No 02/10/2022 organizations such as rastafari groups, unions, [employer]Mistral [employer] or athletic groups, or school groups? 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 - 02/10/2022 3:56 AM CDT See encounter documentation documented in this encounter H&P Notes John Bella M.B.B.S. - 02/10/2022 3:56 AM CDT Catia Carias called in to the [facility] with bladder and bowel incontinence over the [...] Radiology Matthew Jerome 2 Tyrell Rodriguez M.D. [address] [place] [address] [phone] Appointment Gastroenterology demian Silver 2 Hepatology Yue Burciaga M.D. [address] [place] [phone] Virtual Visit Transplant Matthew Jerome 2, M.B.B.S., M.D. [address] [place] [address] [phone] Office Visit Gastroenterology and Matthew Jerome 2 Hepatology Tyrell Rodriguez M.D. [address] [place] [address] [phone] Appointment Radiology Matthew Jerome 2 YTyrell M.D. [address] [place] [address] [phone] Hospital Gastroenterology and Matthew Jerome Cirrhos is Alcoholic (HCC) 2 Encounter Hepatology Tyrell Rodriguez M.D. [address] [place] [address] [phone] Anesthesia Event Gastroenterology demian Shine, Olinda Hepatology Ervin Burgos M.D. [address] [place] [phone] Surgery Gastroenterology and Mousa, Matthew ESOPHAG OGASTRODUODENOSCOPY 2 Hepatology Tyrell Rodriguez M.D. [address] [place] [phone] Scheduled Procedures Name Priority Associated Diagnoses Date/Time ESOPHAGOGASTRODUODENOSCOPY Cirrhosis Alc oholic (HCC) 03/20/2022 8:45 AM CODER OPERATOR Hypertension Portal (HCC) documented as of this encounter Visit Diagnoses Not on filedocumented in this encounter Additional Health Concerns Assessment Noted Time PHQ-9 Depression Total Score: 10 10/06/2021 5:00 PM CD T documented as of this encounter Care Teams Aluminum Boat Inspector Relationship Specialty Start Date End Date Ana Red P.A.-C. PCP - General Internal Medicine 12/01/[address] [place] [phone] [facility]- [place] lab 08/25/21 Ervin Schroeder MD Referring Provider Family Medicine 03/24/[address] [place] [address] [address] documented as of this encounter
--- OUTSIDE RECORDS SUMMARY | 2022-02-14 21:58 | XMS_ITS | Encounter Summary ---
:1990 Author Organization [facility] Address [address] [place] [address] Care Team Providers Name Role Phone Ana Red P.A.-C. Primary Care Provider Reason for Visit Transplant (Routine) - Authorized Specialty Diagnoses / Procedures Referred By Contact Refer red To Contact Transplant Surgery / Matthew Jerome [place] [facility] Transplant M.BSumaBSumaSLilian Moise [address] [place] [phone] Referral ID Status Reason Start Date Expiration Date Visits V isits Requested Authorized [id number] Authorized 10/27/2021 10/27/2022 1 1 Encounter Details Date Type Department Care Team Description 02/10/2022 Virtual Visit Amy Valenzuela M.BSumaB.SSuma, MJules [address] [place] [address] Al[facility]olic [facility] for Rain Reyes R.N. 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 - 02/10/2022 2:00 PM CDT Unable to speak with patient as she as in the local ER. Appointment will be rescheduled. documented in this encounter Plan of Treatment Upcoming Encounters Date Type Specialty Care Team Description Telemedicine Transplant 2 Appointment Radiology Matthew Jerome 2 Vik RodriguezBLilian Bedolla [address] [place] [phone] Appointment Gastroenterology and Adrianne, 2 Hepatology Yue Burciaga M.D. [address] [place] [phone] Virtual Visit Transplant Matthew Jerome 2 Joshua RodriguezBSumaBGraeme, Lilian [address] [place] [phone] Office Visit Gastroenterology and Matthew Jerome 2 Hepatology Joshua RodriguezBSumaBLilian Bedolla [address] [place] [phone] Appointment Radiology Matthew Jerome 2 Joshua RodriguezB.BLilian Bedolla [address] [place] [phone] Hospital Gastroenterology and Matthew Jerome Cirrhos is Alcoholic (HCC) 2 Encounter Hepatology Vik RodriguezBWu., M.D. [address] [place] [phone] Anesthesia Event Gastroenterology and Rl, 2 Hepatology Ervin Burgos M.D. [address] [place] [phone] Surgery Gastroenterology and Mousa, Matthew ESOPHAG OGASTRODUODENOSCOPY 2 Hepatology Tyrell Rodriguez M.D. [address] [place] [phone] Scheduled Procedures Name Priority Associated Diagnoses Date/Time ESOPHAGOGASTRODUODENOSCOPY Cirrhosis Alc oholic (HCC) 03/20/2022 8:45 AM ALUMNI COORDINATOR Hypertension Portal (HCC) documented as of this encounter Visit Diagnoses Diagnosis Cirrhosis Alcoholic (HCC) Alcoholic Cirrhosis Of Liver With Ascite s (HCC) [K70.31 (ICD-10-CM)] - Primary Cirrhosis Alcoholic (HCC) Hypertension Portal (HCC) documented in this encounter Additional Health Concerns Assessment Noted Time PHQ-9 Depression Total Score: 10 10/06/2021 5:00 PM CD T documented as of this encounter Care Teams Senior Engineering Technician Relationship Specialty Start Date End Date Ana Red P.A.-C. PCP - General Internal Medicine 12/01/[address] [place] [address] ADI PANIAGUA [phone] [facility] lab 08/25/21 Ervin Schroeder MD Referring Provider Family Medicine 03/24/[address] [place], [place] [address] ADI Paniagua [address] documented as of this encounter
--- OUTSIDE RECORDS SUMMARY | 2022-02-14 21:58 | XMS_ITS | Encounter Summary ---
:1990 Author Organization [facility] Address [address] [place] [address] Care Team Providers Name Role Phone Ana Red P.A.-C. Primary Care Provider [phone] Encounter Details Date Type Department Care Team Description 02/13/2022 Clinical Communication Department of Neda [facility] Farida Perez Medicine in [address] [address] [place], [place] [phone] (Work) [phone] Social History Tobacco Use Types Packs/Day Years [...] you attend buddhism or Patient refused 2021 confucianism services? 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 (for symptom based concerns): na Action Needed: please call pt and advise Name of Medication (if relevant): oxycodone Please send all scheduling replies to scheduling pool. documented in this encounter Plan of Treatment Upcoming Encounters Date Type Specialty Care Team Description Telemedicine Transplant 2 Appointment Radiology Matthew Jerome 2 YTyrell M.D. [address] [place] [phone] Appointment Gastroenterology demian Silver 2 Hepatology Yue Burciaga M.D. [address] [place] [phone] Virtual Visit Transplant Matthew Jerome 2 YTyrell M.D. [address] [place] [phone] Office Visit Gastroenterology and Matthew Jerome 2 Hepatology Tyrell Rodriguez M.D. [address] [place] [phone] Appointment Radiology Matthew Jerome 2 YTyrell M.D. [address] [place] [phone] Hospital Gastroenterology and Queenie Matthew Cirrhos is Alcoholic (HCC) 2 Encounter Hepatology Tyrell Rodriguez M.D. [address] [place] [phone] Anesthesia Event Gastroenterology and Olinda Shine Hepatology Ervin Burgos M.D. [address] [place] [phone] Surgery Gastroenterology and Mathtew Jerome ESOPHAG OGASTRODUODENOSCOPY 2 Hepatology Y, M.Lilian Hudson [address] [place] [phone] Scheduled Procedures Name Priority Associated Diagnoses Date/Time ESOPHAGOGASTRODUODENOSCOPY Cirrhosis Alc oholic (HCC) 03/20/2022 8:45 AM TELEPRINTER INSTALLER Hypertension Portal (HCC) documented as of this encounter Visit Diagnoses Not on filedocumented in this encounter Additional Health Concerns Assessment Noted Time PHQ-9 Depression Total Score: 10 10/06/2021 5:00 PM CD T documented as of this encounter Care Teams Tent Assembler Relationship Specialty Start Date End Date Ana Red P.A.-C. PCP - General Internal Medicine 12/01/[address] [place] [phone] [facility] [place] lab 08/25/21 Ervin Schroeder MD Referring Provider Family Medicine 03/24/[address] [place] [address] documented as of this encounter
--- OUTSIDE RECORDS SUMMARY | 2022-02-14 21:58 | XMS_ITS | Encounter Summary ---
:1990 Author Organization [facility] Address [address] [place] [address] Care Team Providers Name Role Phone Ana Red P.A.-C. Primary Care Provider [phone] Reason for Visit Reason Comments EGD scheduled for 02/10 Encounter Details Date Type Department Care Team Description 02/09/2022 Clinical Department of Alyssa Arana EGD scheduled for Communication Anesthesiology in S, R.N. 02/10 [place], [place] [address] [facility] [address] [place] [phone] Social History Tobacco Use Types Packs/Day Years [...] you attend worship or Patient refused 2021 denominational services? Do [...] or the highest technical, or vocational p [place] degree you have received? 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 - 02/09/2022 8:41 AM CDT Hi Christelle Redding is scheduled for an EGD with you tomorrow based on the order placed 12/10 for varices screening. She states she had an EGD in [place] and 6 varices were banded during that procedure (unable to seedocumentation of that procedure, however there is a note from anesthesia dated 01/26 that she did have an EGD on that date). Pt was contacted by this journalists and other writers to go thru preadmission questions and pt is asking if this EGD is needed since she already had it in [place]. Would you like her to have anotherEGD as scheduled tomorrow? Please advise and I can call the patient back. Thank you Alyssa RN Preoperative Snack Bar Cashier documented in this encounter Plan of Treatment Upcoming Encounters Date Type Specialty Care Team Description Telemedicine Transplant 2 Appointment Radiology LuisMatthew abdul 2 YTyrell M.D. [address] [place] [phone] Appointment Gastroenterology demian Silver, 2 Hepatology Yue Burciaga M.D. [address] [place] [phone] Virtual Visit Transplant LuisMatthew abdul 2 Tyrell Rodriguez M.D. [address] [place] [phone] Office Visit Gastroenterology and LuisMatthew abdul 2 Hepatology Tyrell Rodriguez M.D. [address] [place] [phone] Appointment Radiology LuisMatthew abdul 2 YTyrell M.D. [address] [place] [phone] Hospital Gastroenterology and Matthew Jerome Cirrhos is Alcoholic (HCC) 2 Encounter Hepatology Tyrell Rodriguez M.D. [address] [place] [address] [phone] Anesthesia Event Gastroenterology and Rl, 2 Hepatology Ervin Burgos M.D. [address] [place] [address] [phone] Surgery Gastroenterology and Mousa, Matthew ESOPHAG OGASTRODUODENOSCOPY 2 Hepatology Tyrell Rodriguez M.D. [address] [place] [phone] Scheduled Procedures Name Priority Associated Diagnoses Date/Time ESOPHAGOGASTRODUODENOSCOPY Cirrhosis Alc oholic (HCC) 03/20/2022 8:45 AM YOUTH LIAISON OFFICER Hypertension Portal (HCC) documented as of this encounter Visit Diagnoses Not on filedocumented in this encounter Additional Health Concerns Assessment Noted Time PHQ-9 Depression Total Score: 10 10/06/2021 5:00 PM CD T documented as of this encounter Care Teams Dairy Clerk Relationship Specialty Start Date End Date Ana Red P.A.-C. PCP - General Internal Medicine 12/01/[address] [place] [phone] [facility]- [place] lab 08/25/21 Ervin Schroeder MD Referring Provider Family Medicine 03/24/[address] [place] [address] documented as of this encounter
--- OUTSIDE RECORDS SUMMARY | 2022-02-14 21:58 | XMS_ITS | Encounter Summary ---
:1990 Author Organization [facility] Address [address] [place] [address] Care Team Providers Name Role Phone Ana Red P.A.-C. Primary Care Provider [phone] Encounter Details Date Type Department Care Team Description 02/09/2022 Clinical Communication Department of Debra Red [facility] Farida Perez Medicine in [address] [address] [place], [place] [phone] (Work) [phone] Social History Tobacco Use Types Packs/Day Years [...] you attend scientologist or Patient refused 2021 islam services? 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 Please call patient back. [phone] Telephone Encounter - Ankita Peña - 02/09/2022 [...] Needed: Please send something to [facility]rica in [place] for her please Name of Medication (if relevant): what ever you can offer for her nerve pain Please send all scheduling replies to scheduling pool. documented in this encounter Plan of Treatment Upcoming Encounters Date Type Specialty Care Team Description Telemedicine Transplant 2 Appointment Radiology Matthew Jerome 2 Y, VikBSumaLilian Stockton [address] [place] [phone] Appointment Gastroenterology and Adrianne, 2 Hepatology Yue Burciaga M.D. [address] [place] [phone] Virtual Visit Transplant Matthew Jerome 2 Tyrell Rodriguez M.D. [address] [place] [phone] Office Visit Gastroenterology and Matthew Jerome 2 Hepatology Tyrell Rodriguez M.D. [address] [place] [phone] Appointment Radiology Matthew Jerome 2 Vik RodriguezBLilian Bedolla [address] [place] [phone] Hospital Gastroenterology and Ct[place]ell Matthew Cirrhos is Alcoholic (HCC) 2 Encounter Hepatology Tyrell Rodriguez M.D. [address] [place] [phone] Anesthesia Event Gastroenterology and Rl, 2 Hepatology Ervin Burgos M.D. 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 PCP - General Internal Medicine 12/01/[address] [place] [phone] [facility] lab 08/25/21 Ervin Schroeder MD Referring Provider Family Medicine 03/24/[address] [place] [address] documented as of this encounter
--- OUTSIDE RECORDS SUMMARY | 2022-02-14 21:58 | XMS_ITS | Encounter Summary ---
:1990 Author Organization [facility] Address [address] [place] [address] Care Team Providers Name Role Phone Ana Red P.A.-C. Primary Care Provider [phone] Reason for Referral Outpatient (Routine) - Authorized Specialty Diagnoses / Procedures Referred By Contact Refer red To Contact Diagnoses Alcoholic Cirrhosis Of Liver With Ascites (HCC) Sara Gracia M.D. [address] [place] [address] Referral ID Status Reason Start Date Expiration Date Visits V isits Requested Authorized [id number] Authorized 02/06/2022 02/06/2023 1 1 Outpatient (Routine) - Authorized Specialty Diagnoses / Procedures Referred By Contact Refer red To Contact Diagnoses Chronic Pain Syndrome Hypertension Portal (HCC) Hepatic Failure Unspecified Without Coma (HCC) Alcoholic Cirrhosis Of Liver With Ascites (HCC) Sara Gracia M.D. [address] [place] [address] Referral ID Status Reason Start Date Expiration Date Visits V isits Requested Authorized [id number] Authorized 02/06/2022 02/06/2023 1 1 Outpatient (Routine) - Closed Specialty Diagnoses / Procedures Referred By Contact Refer red To Contact Diagnoses Ascites Chronic Matthew Jerome M.B.B.S., [facility] Procedures US Paracentesis with Imaging Guidance M.DSuma [address] [place] [phone] Referral ID Status Reason Start Date Expiration Date Visits Requ ested Visits Authorized [id number] Closed 11/19/2021 11/19/2022 1 1 Reason for Visit Auth/Cert Specialty Diagnoses / Procedures Referred By Contact Refer red To Contact Diagnoses Ascites Chronic Procedures US PARACENTESIS WITH IMAGING GUIDANCE Hosp OP Referral ID Status Reason Start Date Expiration Date Visits Requ ested Visits Authorized [id number] 1 1 Encounter Details Date Type Department Care Team Description 02/05/2022 Hospital Encounter Department of Matthew Jerome, Chroni c Pain Syndrome (Primary Dx); Radiology, Joshua Reyes Ascites Chronic; Building, in [address] [facility] Hypertension Portal (HCC); [place], [place] Hepatic Failure Unspecified Without Coma (HCC); [address] [phone] Alcoholic Cirrhosis Of Liver With Ascite s (HCC) [place], [place] [phone] (Work) [phone] Social History Tobacco Use Types Packs/Day Years [...] you attend tenriism or Patient refused 2021 cheondoism services? 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 [address] [place] [phone] Virtual Visit Transplant Matthew Jerome 2 Joshua RodriguezBSumaBLilian Bedolla [address] [place] [phone] Office Visit Gastroenterdina and Matthew Jerome 2 Hepatology Vik RodriguezBLilian Bedolla [address] [place] [phone] Appointment Radiology [facility] 2 Tyrell Rodriguez M.D. [address] [place] [phone] Hospital Gastroenterology and [facility] Cirrhos is Alcoholic (HCC) 2 Encounter Hepatology Tyrell Rodriguez M.D. [address] [place] [phone] Anesthesia Event Gastroenterology and Rl, 2 Hepatology Ervin Burgos M.D. [address] [place] [phone] Surgery Gastroenterology and [facility] ESOPHAG OGASTRODUODENOSCOPY 2 Hepatology Tyrell Rodriguez M.D. [address] [place] [address] [phone] Scheduled Procedures Name Priority Associated Diagnoses Date/Time ESOPHAGOGASTRODUODENOSCOPY Cirrhosis Alc oholic (HCC) 03/20/2022 8:45 AM AIRCRAFT DESIGNER Hypertension Portal (HCC) Scheduled Referrals Name Type Priority Associated Diagnoses Order S chedule [facility] Out[facility] Referral Routine Chronic Pain Syndrome Ordered: Health referral Hypertension Portal 02/06 (HCC) Hepatic Failure Unspecified Without Coma (HCC) Alcoholic Cirrhosis Of Liver With Ascites (HCC) [facility] Out[facility] Referral Routine Alcoholic Cirrhosis Ordered: Health [...] PROCEDURES Gram Stain (02/05/2022 3:17 PM CDT) [facility] Method Time Signature Gram Stain [...] [facility] [address] [place], [place] [address] [facility] [address] [facility] [address] Cell Count and Differential, Body Fluid (02/05/2022 3:17 PM CDT) [facility] g[facility] Method Time Signature Fluid Type Peritoneal- 02/05/2022 [...] characteri stics were determined by [facility] in a manner co nsistent with [...] [facility] - [address] [place], [place] [address] [place] [address] [facility] [address] documented [...] documented as of this encounter Care Teams Lead Application Architect Relationship Specialty Start Date End Date Ana Red P.A.-C. PCP - General Internal Medicine 12/01/[address] [place] [address] [facility] [place] [phone] [facility] [place] lab 08/25/21 Ervin Schroeder MD Referring Provider Family Medicine 03/24/[address] [place] [address] [place] [address] documented as of this encounter
--- OUTSIDE RECORDS SUMMARY | 2022-02-14 21:58 | XMS_ITS | Clinical Summary ---
:1990 Author Organization [facility] Address [address] [place] [address] Care Team Providers Name Role Phone Ana Red P.A.-C. Primary Care Provider [phone] Source Comments Patient records contain information from all sites at [facility]. For routine questions regarding patient records, call [phone] during business hours, M-F 8:00 AM - 5:00 PM Central Time. Record requests for emergency care only can be directed to [phone] at any time.[facility] Allergies Active Allergy Reactions Severity Noted [...] oral 3 times daily PRN, muscle spasms, Reported on 02/11/2022 furosemide (LASIX) 20 Take [...] PAIN OR SCORE 4-6 OF 10 tablet folic acid 1 mg Take 1 mg by 0 01/30/2022 Discontinued tablet mouth daily. furosemide (LASIX) 20 Take 2 tablets 180 [...] Function Test, Hepatic Encephalopathy Without Coma (HCC) cyclobenzaprine Take 1 tablet (5 15 tablet [...] 1 tablet 20 tablet 0 01/14/2022 01/21/20 Discontinued (COMPAZINE) 10 mg (10 mg total) [...] Take 1 tablet (5 15 tablet 0 01/20/2022 2021 Discontinued (FLEXERIL) 5 mg mg total) by ( Reorder) tablet mouth daily as needed for muscle spasms. spironolactone Take 2 tablets 60 tablet 2 01/20/2022 Discontinued (ALDACTONE) 50 mg (100 mg total) (Reorder) tablet by mouth daily. prochlorperazine Take 1 tablet 20 tablet 0 01/20/2022 01/30/20 Discontinued (COMPAZINE) 10 mg (10 mg total) by (Stop Taking tablet mouth 3 (three) at D ischarge) times a day as needed for nausea. lactulose (CHRONULAC) Take 30 mL (20 g 86665 mL 3 01/27/2022 01/29/2022 Discontinued 20 gram/30 [...] Added automatically from request for dolly daley [id number] Smoking Tobacco Use Personal History 10/10/2021 Overview: Quit smoking spring 2021. 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 02/13/2022 Nurse Triage [facility] n Problem Medicine A, R.N. 02/13/2022 Clinical [facility], Communication Solitario Perez P.A.-C. 02/12/2022 Office Visit Transplant Adeline Frazier M.D., Ph.D. Zenobia Hollingsworth M.A., L.A.D.C. 02/11/2022 Office Visit [facility], Fracture T11-12 Wedge Compression Sequela (Primary Dx); Solitario Perez, Cirrhosis Alcoh olic (HCC); P.A.-C. Hypertension Po rtal (HCC); Thrombocytopeni a (HCC); Abnormal Liver Function Test; Hepatic Encepha lopathy Without Coma (HCC); Fracture Lumbar First Wedge Compression Sequela 02/11/2022 Refill [facility], Med Refil l Solitario Perez P.A.-C. 02/10/2022 Virtual Visit Transplant MousaMatthew, Alcoholic Ci rrhosis Lilian Santillan Of Liver With Ascites Rain Reyes (HCC) [K70.31 M, R.N. (ICD-10-CM)] (P rimary Dx) 02/10/2022 Orders Only [facility] Internal [facility], [facility] Frances PerezA.-C. 02/10/2022 Clinical Transplant Matthew Jerome, Phone Contact Communication Lilian Santillan 02/10/2022 Clinical [facility] Internal [facility], Post Hosp ital Communication Medicine Myrtle Govea Follow-up 02/10/2022 Documentation Gastroenterology and Shayne Hepatology Tyrell Lopez 02/09/2022 Clinical [facility], [facility] Medicine Farida Perez-CSuma 02/09/2022 Clinical Anesthesiology Alyssa Arana schedule d [...] Santillan MD follow up ) 02/04/2022 Clinical [facility] Internal [facility], Post Hosp ital Communication Medicine Myrtle Govea Follow-up (LA CE - 78) 02/03/2022 Clinical Gastroenterology and Matthew Jerome, Communication Hepatology Lilian Santillan 02/02/2022 Orders Only [facility] Internal [facility], [facility] Shanita Perez.A.-C. 02/02/2022 Clinical [facility], [facility] Medicine Shanita Perez.A.-C. 02/01/2022 Emergency Paty Goldberg Pain Flank (Pr imary Dx); - L, P.A.-C. Ascites Chronic; 02/03/2022 Ervin Mazariegos ia (HCC); Lilian Johnson Cirrhosis Alcoholic (HCC); Vj Rodrigez, Hypertension P ortal (HCC); Ch. VikB. Abnormal Liver Function Test 01/30/2022 Clinical Acute Care Ashley Gracia M.D. 01/30/2022 Orders Only Acute Care Sara Gracia M.D. 01/30/2022 Clinical Family Medicine Nighat Dickson Post [facility] meagan Communication J, R.N. Follow-up 01/30/2022 Orders Only [facility] Internal [facility] Solitario Hudson M.D. 01/30/2022 Clinical [facility] Internal [place], Post Hosp ital Communication Medicine Parris Schaefer, Follow-up R.N. 01/30[facility]2022 [facility] Medicine Ana, P.A.-C. 01/29/2022 Refill [facility], Med Refil l Medicine Ana, P.A.-C. 01/29/2022 Orders Only Pharmacy Genaro Handley 01/29/2022 Clinical Transplant Peterson, Adry Omayra Phone Contact Communication 01/28/2022 Virtual Visit Transplant Mousa, Matthew Y, Canceled (Danie albright: M.B.B.S., M.D. Hospitalized / ill) 01/28/2022 Clinical Acute Care Adrianne, Pre-visit Testi ng Communication Yue Burciaga, Orders M.Jeri 01/27/2022 Orders Only Pharmacy Evi Lanier 01/26/2022 Anesthesia Event Gastroenterology and Gildardo Hickey Hepatology Patrica, GAS WELDER APPRENTICE, EXPANDING MACHINE OPERATOR, DNAP Catia Green, GAS WELDER APPRENTICE, EXPANDING MACHINE OPERATOR, DNAP 01/26/2022 Ancillary Procedure 01/26/2022 Clinical Pharmacy Christopher, Nicole Rx Prior Communication A Authorization (PA DENIED - LIDOCA INE 5% PATCH) 01/26/2022 Orders Only Pharmacy Christopher, Nicole A 01/23/2022 Ancillary Procedure 01/23/2022 Anesthesia Event Gastroenterology and Roseanne, Hepatology Allegra Wilkes APRN, EXPANDING MACHINE OPERATOR 01/22/2022 [facility], Form Revi ew Communication Medicine Ana, ([facility] P.A.-C. med reconciliat ion) 01/20/2022 Hospital Encounter Cody Knight Failure Renal Acute (Acute Kidney Injury) (HCC) (Primary Dx); Ester Burciaga M.D. Cirrhosis Alcoholic (HCC); 01/29/2022 Mhjoseph, Alcohol Use Uns pecified With Unspecified Alcohol [...] Wit hout Coma (HCC) 01/20/2022 Office Visit [facility] Internal [facility], Pain Low Back Unspecified (Primary Dx); Solitario Perez, Cirrhosis Alcoh olic (HCC); P.A.-C. Ascites; Long QT Syndrom e; Rhinitis Allerg ic; Alcohol Use Uns pecified With Unspecified Alcohol Induced Disorder (HCC) 01/20/2022 Clinical Gastroenterology and Felicita Spicer Communication Hepatology E, L.P.N. 01/20/2022 Refill [facility], Med Refil l Solitario Perez, P.A.-C. 01/20/2022 Orders Only Pharmacy Lina Johnson 01/19/2022 Orders Only [facility], Medicine Ana, P.A.-C. 01/19/2022 Orders Only Transplant Ailts, Garry Engle., R.N., C.C.T.C. 01/19/2022 Clinical [facility] Internal [facility], Communication Solitario Perez, P.A.-C. 01/17/2022 Clinical Gastroenterology and Ervin Mckeon Communication Hepatology Lilian, Ph.D. 01/16/2022 Clinical Transplant Fabrizio, Phone Contact; Communication Lilian Rowland, Appointment (LABs) Ph.D. 01/16/2022 Clinical Gastroenterology and Digna Campbell Hepatology Lilian Schaefer 01/15/2022 Clinical Transplant Quang, Phone Contact Communication Parris 01/15/2022 Clinical [facility] Internal [place], Post Hosp ital Communication Medicine Andrew LarsonNSuma Follow-up 01/14/2022 Clinical Transplant Karin, Appointment (Oc tober Communication Adeline Gannon, follow up) MJules, Ph.D. 01/13/2022 Telemedicine Transplant Joseyukianoalexa, Moderate Or Sev ere Adeline Gannon, Use Disorder Lilian, Ph.D. (Dependence) Alcohol Cathleen, Remission (HCC) Elena Burgos (Primary Dx) 01/13/2022 Telemedicine Transplant Lambert, Cirrhosis Alcoh olic Joel Gannon, (HCC) (Primary Dx) L.I.C.S.W., M.S.W. 01/13/2022 Clinical Gastroenterology and Digna Campbell Hepatdina Schaefer M.D. 01/13/2022 Orders Only Social Work Joel Tan, L.I.C.S.W., M.S.W. 01/13/2022 Clinical Gastroenterology and Digna Campbell Hepatdina Schaefer M.D. 01/09/2022 Hospital Encounter Jose, Hepatic E ncephalopathy Without Coma (HCC) (Primary Dx); - Migue Llanes Jr., Deficiency Vi tamin A; 01/14/2022 Lilian Cirrhosis Alcoholic (HCC); Amy, Pain Low Back U nspecified; Reese Burgos, Decline Functio nal Status [R53.81 (ICD-10-CM)] Sree Up M.D. 01/08/2022 Clinical [facility] Internal [facility], Communication Medicine Shanita Perez.A.-CSuma 01/07/2022 Office Visit [facility] Internal [facility], Hypertens ion Portal (HCC) (Primary Dx); Solitario Perez, Cirrhosis Alcoh olic (HCC); P.A.-C. Ascites; Pancreatitis Ch ronic (HCC); Pain Low Back M echanical 01/07/2022 Patient Self-Triage Symptom Remediation Technician, Provider 01/06/2022 Clinical Gastroenterology and Felicita Spicer Communication Hepatology Patrica, L.P.N. 12/27/2021 Patient Self-Triage Symptom Remediation Technician, Provider 12/25/2021 [facility], [facility] Medicine Ana, P.A.-C. 12/21/2021 Emergency Emergency Medicine Gonzalez, Ascites ( Primary Dx) Ted Johnson M.D., Ph.D. Clifton Liu M.D. 12/19/2021 Emergency Emergency Medicine Gonzalez, Pain Back (Primary - Ted Johnson M.D., Dx) 12/20/2021 Ph.D. Migue Garcia Jr., M.D. 12/19/2021 Nurse Triage [facility] Internal [facility], Back Pain Medicine Ben Johnson R.N. 12/18/2021 Orders Only Gastroenterology and Matthew Jerome Y, Mood Disorder (HCC) (Primary Dx); Hepatology M.BJhoan, Lilian Anxiety Disor ijeoma Unspecified 12/15/2021 Lab Laboratory Medicine Karin, Alcohol Moderate Or Severe Use Disorder (Dependence) Uncomplicated (HCC); Adeline Gannon, Cannabis Use Un specified Uncomplicated M.Slick., Ph.D. 12/12/2021 Documentation Transplant Lambert, Joel Gannon, L.I.C.S.W., M.S.W. 12/11/2021 Clinical Transplant Fabrizio, Phone Contact; Ashley Rowland M.D., Appointment (LABS) Ph.D. 12/11/2021 Clinical Gastroenterology and Felicita Spicer Communication Hepatology Patrica, L.P.N. 12/11/2021 [facility], Disabilit y Parking Communication Medicine Ana, Certificate P.A.-C. 12/10/2021 Office Visit Gastroenterology and Matthew Jerome Y, Cirrh osis Alcoholic (HCC) (Primary Dx); Hepatology M.BSumaBGraeme, Lilian Hypertension Portal (HCC); Thrombocytopeni a (HCC); [...] Schaefer M.D. 12/04/2021 Documentation Gastroenterology and Jethro Hepatology Nabila Schaefer M.D. 12/04/2021 Clinical Gastroenterology and Jethro Communication Hepatology Nabila Schaefer M.D. 12/03/2021 Clinical [facility] Internal Sina, BIANKA / Disha eal Letter Communication Medicine Lilian Gee, M.S. 12/03/2021 Orders Only Ana Red, P.A.-C. 12/02/2021 Hospital Encounter Laboratory Medicine Matthew Jerome Y, Cirrhosis Alcoholic (HCC); M.B.B.Lilian Stockton Hypertension Portal (HCC); Thrombocytopeni a (HCC); Abnormal Liver Function Test; Change Mental S tatus 12/02/2021 Office Visit [facility] Acute A nd Subacute Hepatic Failure Without Coma (HCC) (Primary Dx); [place] D.O. Pancreatitis Chronic (HCC); Detention Use O f Opiate Analgesic; Alcohol Use Uns pecified With Unspecified Alcohol Induced Disorder (HCC); Alcoholic Cirrh osis Of Liver Without Ascites (HCC); Ascites Chronic ; Insomnia; High Risk Medic ation 12/02/2021 [facility] Internal Sina Communication Solitario Gee M.D., M.S. 12/02/2021 Clinical Pharmacy Ashley Be 12/02/2021 [facility] Internal [facility] Communication Medicine Sunny hanley D.O. 12/02/2021 Orders Only Ana Red, P.A.-C. 12/02/2021 [facility] Internal [place] Post H[facility] ital Communication Medicine Ciara Johnson RSumaNSuma Follow-up 11/27/2021 Orders Only [facility] Internal Sina, Solitario Gee M.D., M.S. 11/26/2021 Clinical Community Internal Shannan Rand Communication Medicine MJules 11/26/2021 Clinical Gastroenterology and Matthew Jerome Communication Hepatology VikBLilian Bedolla 11/26/2021 Community Orders Schroeder, Steatohepat itis Non Alcoholic (Primary Dx); Ervin Schaefer M.D. Unspecified Ci rrhosis Of Liver (HCC) 11/18/2021 Clinical Alina Carranza Communication R, R.N. 11/14/2021 Community Orders Schroeder, Abuse Tobac co Smoking (Primary Dx); Ervin Schaefer M.D. Unspecified Ci rrhosis Of Liver (HCC) 11/12/2021 Hospital Encounter Rosaura Sevilla (Primary Dx); Ester Johnson M.D., Change Mental S tatus; 11/26/2021 [facility] Malaise (Concern For Covid-19); Greyson, Cirrhosis Alcoh olic (HCC) Jo Ann Gannon M.D., M.S. Jody Aguilar M.B., B.Chir. from Last 3 Months Immunizations Name [...] you attend holiness or Patient refused 2021 advent services? 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 [address] [place] [phone] Virtual Visit Transplant Matthew Jerome 2 Joshua RodriguezBSumaBLilian Bedolla [address] [place] [phone] Office Visit Gastroenterology and LuisNew abdular 2 Hepatology Tyrell Rodriguez M.D. [address] [place] [phone] Appointment Radiology Matthew Jerome 2 Joshua RodriguezB.B.Lilian Stockton [address] [place] [phone] Hospital Gastroenterology and Matthew Jerome Cirrhos is Alcoholic (HCC) 2 Encounter Hepatology Tyrell Rodriguez M.D. [address] [place] [phone] Anesthesia Event Gastroenterology and Rl, 2 Hepatology Ervin Burgos M.D. [address] [place] [phone] Surgery Gastroenterology and LuisNew abdular ESOPHAG OGASTRODUODENOSCOPY 2 Hepatology Joshua RodriguezBSumaBLilian Bedolla [address] [place] [phone] Scheduled Procedures Name Priority Associated Diagnoses Date/Time ESOPHAGOGASTRODUODENOSCOPY Cirrhosis Alc oholic (HCC) 03/20/2022 8:45 AM WATER FITNESS INSTRUCTOR Hypertension Portal (HCC) Health Maintenance Due Date [...] 02/10/2022 PHQ-2) Medical Devices Implanted Type Area Assembler Skylights Device Shelf Model / Identifier Expiration Serial / Date Lot Intrauterine Intrauterine N/A: Device Device Cervix Procedures Procedure Name Priority Date/Time Associated Comments Diagnosis ETHYL GLUCURONIDE SCRN Routine 02/12/2022 Moderate Or Severe Results for W/REFLEX, U 10:29 AM CDT Use Disorder this procedure (Dependence) are in the Alcohol Remission results ([facility]) section. CONFIRMED DRUG ABUSE Routine 02/12/2022 Moderate Or Severe R esults for PANEL, U 10:29 AM CDT Use Disorder this procedure (Dependence) are in the Alcohol Remission results ([facility]) section. URIC ACID, S/P Routine 02/12/2022 Cirrhosis [...] procedu re are in the results section. from Last 3 Months Results Ethyl Glucuronide Screen with Reflex, Urine (02/12/2022 10:29 AM CDT) [facility] Readmill Method Time Signature Ethyl Negative Cutoff: 02/12/2022 [facility] Glucuronide Scrn 500 ng/mL 2:35 PM CDT w/Reflex, U Comment: ----ADDITIONAL INFORMATION---- This test was developed and its performa nce characteristics determined by [facility] in a manner consistent with [...] [address] [place], [place] [address] [address] [facility] [place] [address] [place] Drug Abuse Survey with Confirmation, Urine (02/12/2022 10:29 AM CDT)Only the most recent of2 resultswithin the time period is included. [facility] Readmill Method Time Signature Alcohol Negative Cutoff: 10 [...] [facility] [address] [place], [place] [address] [place] [address] [facility] [address] [place] AFP (Alpha-Fetoprotein), Tumor Marker (02/12/2022 10:16 AM CDT) athologist Signature Alpha-Fetoprote 7.9 ng/mL 02/12/2022 [facility] in, Tumor 3:41 PM CDT Marker, S [...] method is an immunoenzymatic assay manufactured by [employer]. and is tested on the [employer] Unicel DxI 800. Values obtained with different [...] [address] [place], [place] [address] [address] [facility] [place] [address] [facility] [address] [place] (ABNORMAL) Prothrombin Time (PT) (02/12/2022 10:16 AM CDT)Only the most recent of10 resultswithin the time period is included. [facility] Method Time Signature Prothrombin 30.8 (H) 9.4 [...] [facility] - [address] [place], [place] [address] [facility] [place] [address] [facility] 200 [facility] (ABNORMAL) CBC with Differential, Blood (02/12/2022 10:16 AM CDT)Only the most recent of22 resultswithin the time period is included. [facility] gist Method Time Signature Hemoglobin 9.4 (L) 11.6 [...] M.D. LAB BLOOD ADD-ON Performing Organization Address City/[facility] Phon e Number [facility] [address] (ABNORMAL) CRP (C-Reactive Protein) (02/12/2022 10:16 [...] M.D. LAB BLOOD ADD-ON Performing Organization Address City/[facility] Phon e Number [facility] - [address] Uric Acid (02/12/2022 10:16 AM CDT) P athologist Signature Uric Acid, S 5.4 2.7 - 6.1 02/12/2022 DTL mg/dL 11:15 AM CDT Specimen Anatomical Collection Method Collection Time Receive d Time (Source) Location / / Volume Laterality Blood (Blood, 02/12/2022 10:16 02/12/2022 Venous) AM CDT 10:57 AM CDT Matthew Santillan M.D. LAB BLOOD ADD-ON Performing Organization Address City/[facility] Phon e Number [facility] - [address] (ABNORMAL) Bilirubin, Direct (02/12/2022 10:16 AM CDT)Only the most recent of2 resultswithin the time period is included. athologist Signature Bilirubin, 4.4 (H) 0.0 - 0.3 02/12/2022 DTL Direct, S mg/dL 11:15 AM CDT Specimen Anatomical Collection Method Collection Time Receive d Time (Source) Location / / Volume Laterality Blood (Blood, 02/12/2022 10:16 02/12/2022 Venous) AM CDT 10:57 AM CDT Matthew Santillan M.D. LAB BLOOD ADD-ON Performing Organization Address City/[facility] Phon e Number [facility] - [address] (ABNORMAL) Comprehensive Metabolic Panel (02/12/2022 10:16 AM CDT)Only the most recent of11 resultswithin the time period is included. athologist Signature Potassium, S 4.0 3.6 - [...] [facility] - [address] [place], [place] [address] [facility] [place] [address] [facility] [address] MR Lumbar Spine wo [...] System IMG MRI PROCEDURES Performing Organization Address City/[facility]/ZIP Code Phon e Number SUDARSHAN HEATON NA CT lumbar spine wo con-Outside CT [...] System IMG CT PROCEDURES Performing Organization Address City/[facility]/ZIP Code Phon e Number SUDARSHAN HEATON NA US Paracentesis with Imaging Guidance (02/05/2022 [...] of6 resultswithin the time period is included. [facility] Method Time Signature Fluid Type Peritoneal- [...] performance characteri stics were determined by [facility] in a manner co nsistent [...] Are: Mesothelial cells 02/05/2022 8:38 PM CDT [facility] Comment No blasts or malignant cells seen. 02/05 8:38 PM CDT DHPM Reviewed by: Ruth 02/05/2022 8:38 PM CDT DH Specimen Anatomical Collection Method Collection Time Receive d Time (Source) Location / / Volume Laterality Fluid 02/05/2022 3:17 PM 3:54 (Peritoneal CDT PM CDT Fluid) Matthew Santillan M.D. LAB BODY FLUIDS AND STOOLS ORDERABLES Performing Organization Address City/State/ZIP Code Phon e Number [facility] - [address] [place], [place] [address] [place] [address] [facility] [address] Gram Stain (02/05/2022 3:17 PM CDT)Only [...] MICROBIOLOGY - GENERAL ORDERABLES Performing Organization Address City/[facility] Phon e Number [facility] - [address] [place] [address] CK (Creatine Kinase) (02/02/2022 6:14 AM CDT) athologist Signature Creatine Kinase 29 26 - 192 02/02/2022 DTL (CK), S U/L 7:44 AM CDT Specimen Anatomical Collection Method Collection Time Receive d Time (Source) Location / / Volume Laterality Blood (Blood, 02/02/2022 6:14 AM 02/03/20 7:21 Venous) CDT AM CDT Darrick DanielSSuma LAB BLOOD ADD-ON Performing Organization Address City/[facility] Phon e Number [facility] - [address] (ABNORMAL) Basic Metabolic Panel (02/02/2022 6:14 AM CDT)Only the most recent of 21 resultswithin the time period is included. P [...] Number [facility] - [address] [place] [address] [facility] [place] [address] [facility] [address] [facility] [address] Chest Angiogram and Pulmonary Arteries [...] anasarca. 3. Malpositioned IUD.. Paty Goldberg P.A.-C. Tristan CT PROCEDURES CT Abdomen Pelvis with IV [...] 4 resultswithin the time period is included. [facility] Method Time Signature Glucose, 100 (A) Negative 02/01/2022 [facility] POCT, U mg/dL 1:44 PM CDT Ketone, POCT, Trace (A) Negative 02/01/2022 [facility] U mg/dL 1:44 PM CDT Specific 1.020 1.005 - 02/01/2022 [facility] Kimball, 1.030 1:44 PM CDT POCT, U Blood, [...] City/State/ZIP Code Phon e Number [facility] [address] [place] [address] [place] [address] [facility] [address] [facility] Osmolality, Urine (02/01/2022 1:37 PM CDT)Only the [...] City/State/ZIP Code Phon e Number [facility] - [address] [place], [place] [address] [facility] [place] [address] [facility] [address] (ABNORMAL) Dipstick, Urine (02/01/2022 [...] P.A.-C. LAB URINE ORDERABLES Performing Organization Address [facility] Phon e Number [facility] [address] pH, Random, Urine (02/01/2022 1:37 PM [...] P.A.-C. LAB URINE ORDERABLES Performing Organization Address City/[facility] Phon e Number [facility] [address] (ABNORMAL) Microscopic Manual (02/01/2022 1:37 PM [...] P.A.-C. LAB URINE ORDERABLES Performing Organization Address City/[facility] [facility] Phon e Number [facility] - [address] (ABNORMAL) Gram Stain, Urine (02/01/2022 1:37 PM CDT)Only the most recent of2 resultswithin the time period is included. [facility] Readmill Method Time Signature Source Urine, Urine, 02/01/2022 DT Midstream 2:09 PM CDT Gram Stain, U Positive (A) Negative 02/01/2022 DTL 2:36 PM CDT Comment: Many Gram-positive cocci Specimen Anatomical Collection Method Collection Time Receive d Time (Source) Location / / Volume Laterality Urine 02/01/2022 1:37 PM 2 2:08 CDT PM CDT Paty Goldberg P.A.-C. LAB URINE ORDERABLES Performing Organization Address City/[facility] Phon e Number [facility] - 200 [place], [place] [address] [facility] [address] (ABNORMAL) Urinalysis with Microscopic: Urine, Midstream (02/01/2022 1:37 PM CDT)Only the most recent of7 resultswithin the time period is included. [facility] Readmill Method Time Signature Source Urine, Urine, 02/01/2022 [...] P.A.-C. LAB URINE ORDERABLES Performing Organization Address [facility] Phon e Number [facility] - [address] [place] [address] DTL [place], [place] [id number] [place] [address] Lactate (02/01/2022 1:32 PM CDT)Only the most [...] LAB BLOOD NON ADD-ON Performing Organization Address City/[facility] Phon e Number [address] STMA [place] [id number] [address] DX Chest AP or PA and [...] of6 resultswithin the time period is included. [facility] Method Time Signature Bacteria/Adriana No growth 02/06/2022 DT da Culture, after 5 1:02 PM CDT [...] [facility] [address] [place], [place] [address] [place] [address] [facility] [address] Venous Blood Gas and Electrolytes CG8+, POCT (02/01/2022 10:36 AM CDT)Only the most recent of4 resultswithin the time period is included. Analysis Performed At [facility] logis Time Signature VBG & Lytes Collected DEFAULT 02/01/2022 SMLX CG8+, POCT, B 10:36 AM CDT Specimen Anatomical Collection Method Collection Time Receive d Time (Source) Location / / Volume Laterality Blood (Blood, 02/01/2022 10:36 02/01/2022 Venous) AM CDT 10:36 AM CDT Paty Goldberg P.A.-C. LAB POCT ORDERABLES - DEVICE Performing Organization Address City/[facility] Phon e Number [facility] - [address] [place] [address] [place] [address] [address] Lactate, POCT (02/01/2022 10:36 AM CDT)Only the most recent of6 resultswithin the time period is included. Analysis Performed At [facility] logist Time [facility] Lactate, POCT Collected DEFAULT 02/01/2022 SMLX 10:36 AM CDT Specimen Anatomical Collection Method Collection Time Receive d Time (Source) Location / / Volume Laterality Blood (Blood, 02/01/2022 10:36 02/01/2022 Venous) AM CDT 10:36 AM CDT Paty Goldberg P.A.-C. LAB POCT ORDERABLES - DEVICE Performing Organization Address City/[facility] Phon e Number [facility] - [address] [place] [address] 05 [place] [address] [address] (ABNORMAL) Hepatic Function Panel (02/01/2022 10:34 AM CDT)Only the most recent of9 resultswithin the time period is included. [facility] Method Time Signature Bilirubin, Total, S [...] P.A.-C. LAB BLOOD ADD-ON Performing Organization Address City/[facility] Phon e Number [address] (ABNORMAL) Ammonia (02/01/2022 10:34 AM CDT)Only the most recent of4 results within the time period is included. P athologist Signature Ammonia, P 68 (H) <=30 02/01/2022 DTL mcmol/L 11:32 AM CDT Specimen Anatomical Collection Method Collection Time Receive d Time (Source) Location / / Volume Laterality Blood (Blood, 02/01/2022 10:34 02/01/2022 Venous) AM CDT 10:59 AM CDT Paty Goldberg P.A.-C. LAB BLOOD NON ADD-ON Performing Organization Address City/[facility] Phon e Number [address] ECG 12 Lead (02/01/2022 10:22 AM CDT)Only the most recent of4 resultswithin the time period is included. P athologist Signature Ventricular Rate 91 BPM MUSE ECG/Min [place] Interval 152 ms MUSE QRSD Interval 86 ms MUSE QT Interval 398 ms MUSE QTC Interval 489 ms MUSE P Keene -3 degrees MUSE R Keene 16 degrees MUSE T Wave Keene 5 degrees MUSE Specimen Anatomical Collection Method [...] V iewer, or as an image in [employer]. If a re-interpretation or overread is re quired please follow defined workflow. ?? Provider Not In System IMG CT PROCEDURES Performing Organization Address City/State/ZIP Code Phon e [...] [facility] - [address] [place], [place] [address] [place] [address] [facility] [address] [place] Lower Extremity Veins [...] man agement can be found on the [employer] site. Link [email or web address]/topic/clinical-answers/[email or web address]/[email or web address] Procedure Note Migue Talavera M.D. - 01/28/2022Form [...] man agement can be found on the [employer] site. Link [email or web address]/topic/clinical-answers/[email or web address]/cpm-204 [email or web address] IMPRESSION: 1. Negative for acute DVT within [...] Abdominal ARZ LOS, Abdominal FLA LOS José Migule ography Specimen (Source) Anatomical Collection Method Collection [...] [facility] - [address] [place], [place] [address] [facility] [place] [address] [facility] [address] (ABNORMAL) CBC without Differential (01/28/2022 5:28 AM CDT)Only the most recent of10 resultswithin the time period is included. Patholo [...] HEALTH CARE FACILITY Code Phon e Number [facility] - [address] (ABNORMAL) PT-Fibrinogen (01/26/2022 6:58 PM CDT) [...] [facility] - [address] (ABNORMAL) DIC/ICF Profile (01/26/2022 6:58 PM CDT) [facility] Method Time Signature Prothrombin Time 25.2 [...] performance characteri stics were determined by [facility] in a manner co nsistent [...] Venous) CDT AM CDT Narrative [facility] - 01/27/2022 5:26 PM CDT Specimen Information: Specimen ID: [id number] Specimen Type: Blood Specimen Collection Start Date: 01/27/20 ??6:58 PM Specimen Received Date: 01/27/2022 ??7:1 2 AM Specimen ID: [id number] Specimen Type: Blood Specimen Collection Start Date: 01/27/20 ??6:58 PM Specimen Received Date: 01/27/2022 ??7:1 2 AM Specimen ID: [id number] Specimen Type: Blood Specimen Collection Start Date: 01/27/20 ??6:58 PM Specimen Received Date: 01/27/2022 ??7:1 2 AM Specimen ID: [id number] Specimen Type: Blood Specimen Collection Start Date: 01/27/20 ??6:58 PM Specimen Received Date: 01/27/2022 ??7:1 2 AM Specimen ID: [id number] Specimen Type: Blood Specimen Collection Start Date: 01/27/20 ??6:58 PM Specimen Received Date: 01/27/2022 ??7:1 2 AM Darrick Santillan LAB BLOOD NON ADD-ON Performing Organization Address [facility] Phon e Number [facility] [address] (ABNORMAL) Coag Factor X Assay, P (01/26/2022 6:58 PM CDT) athologist Signature Coag Factor X 29 (L) 70 - 150 % 01/27/2022 [facility] Assay, P 12:19 PM CDT Comment: ----ADDITIONAL INFORMATION---- This test has been modified from the man ufacturer's instructions. Its performance characteri stics were determined by [facility] in a manner co nsistent with CLIA requirements. This test has not bee n cleared or approved by the U.S. Food and Drug Admin istration. Specimen Anatomical Collection Method Collection Time Receive d Time (Source) Location / / Volume Laterality Blood 01/26/2022 6:58 PM 2 CDT 11:30 AM CDT Darrick Santillan LAB BLOOD ADD-ON Performing Organization Address [facility] Phon e Number [facility] [address] Reptilase Time, Plasma (01/26/2022 6:58 PM CDT) P athologist Signature Reptilase Time, 21.0 14.0 - 23.9 01/27/2022 DT P sec 11:03 AM CDT Comment: ----ADDITIONAL INFORMATION---- This test has been modified from the man ufacturer's instructions. Its performance characteri stics were determined by [facility] in a manner co nsistent with CLIA requirements. This test has not bee n cleared or approved by the U.S. Food and Drug Admin istration. Specimen Anatomical Collection Method Collection Time Receive d Time (Source) Location / / Volume Laterality Blood 01/26/2022 6:58 PM 2 7:12 CDT AM CDT Darrick DanielSSuma LAB BLOOD ADD-ON Performing Organization Address City/[facility] Phon e Number [facility] - [address] (ABNORMAL) Soluble Fibrin Monomer (01/26/2022 6:58 PM CDT) athologist Signature Soluble Fibrin 165 (H) <=8 mcg/mL 01/27/2022 DT Monomer 10:57 AM CDT Comment: ----ADDITIONAL INFORMATION---- This test was developed and its performa nce characteristics determined by [facility] in a manner co nsistent with CLIA requirements. This test has not bee n cleared or approved by the U.S. Food and Drug Admin istration. Specimen Anatomical Collection Method Collection Time Receive d Time (Source) Location / / Volume Laterality Blood 01/26/2022 6:58 PM 2 7:12 CDT AM CDT Darrick DanielSSuma LAB BLOOD NON ADD-ON Performing Organization Address City/[facility] Phon e Number [facility] - 200 [place], [place] [address] [place] [address] APTT Mix 1:1 (01/26/2022 6:58 PM CDT) P athologist Signature APTT Mix 1:1 28 25 - 37 sec 01/27/2022 DTL 11:04 AM CDT Comment: ----ADDITIONAL INFORMATION---- This test has been modified from the apex cecilacturer's instructions. Its performance characteri stics were determined by [facility] in a manner co nsistent with CLIA requirements. This test has not bee n cleared or approved by the U.S. Food and Drug Admin istration. Specimen Anatomical Collection Method Collection Time Receive d Time (Source) Location / / Volume Laterality Blood 01/26/2022 6:58 PM 2 7:12 CDT AM CDT Darrick Santillan LAB BLOOD ADD-ON Performing Organization Address [facility] Phon e Number [facility] - [address] PT Mix 1:1 (01/26/2022 6:58 PM CDT) athologist Signature PT Mix 1:1 11.8 9.4 - 12.5 01/27/2022 DTL sec 11:04 AM CDT Comment: ----ADDITIONAL INFORMATION---- This test has been modified from the [facility] hospitalacturer's instructions. Its performance characteri stics were determined by [facility] in a manner co nsistent with CLIA requirements. This test has not bee n cleared or approved by the U.S. Food and Drug Admin istration. Specimen Anatomical Collection Method Collection Time Receive d Time (Source) Location / / Volume Laterality Blood 01/26/2022 6:58 PM 2 7:12 CDT AM CDT Darrick DanielSSuma LAB BLOOD ADD-ON Performing Organization Address City/[facility] Phon e Number [facility] - [address] Dilute Russells Viper Venom Time (DRVVT) (01/26/2022 6:58 PM CDT) athologist Signature DRVVT Screen 0.85 <1.20 ratio 01/27/2022 DTL Ratio 11:04 AM CDT Specimen Anatomical Collection Method Collection Time Receive d Time (Source) Location / / Volume Laterality Blood 01/26/2022 6:58 PM 2 7:12 CDT AM CDT Darrick Santillan LAB BLOOD ADD-ON Performing Organization Address City/[facility] Phon e Number [facility] - 200 [place], [place] [address] [facility] [place] [address] [facility] 200 [facility] (ABNORMAL) Coagulation Factor XII Activity Assay (01/26/2022 6:58 PM CDT) athologist Signature Coag Factor XII 32 (L) 55 - 180 % 01/27/2022 DTL Assay, P 12:47 PM CDT Comment: ----ADDITIONAL INFORMATION---- This test has been modified from the [employer] cecilacturer's instructions. Its performance characteri stics were determined by [facility] in a manner co nsistent with CLIA requirements. This test has not bee n cleared or approved by the U.S. Food and Drug Admin istration. Specimen Anatomical Collection Method Collection Time Receive d Time (Source) Location / / Volume Laterality Blood 01/26/2022 6:58 PM 2 CDT 11:30 AM CDT Darrick Santillan LAB BLOOD ADD-ON Performing Organization Address City/[facility] Code Phon e Number [facility] - 200 [place], [place] [address] [facility] [place] [address] [facility] 200 [facility] (ABNORMAL) Coagulation Factor XI Activity Assay (01/26/2022 6:58 PM CDT) athologist Signature Coag Factor XI 18 (L) 55 - 150 % 01/27/2022 DTL Assay, P 12:47 PM CDT Comment: ----ADDITIONAL INFORMATION---- This test has been modified from the [employer] ufacturer's instructions. Its performance characteri stics were determined by [facility] in a manner co nsistent with CLIA requirements. This test has not bee n cleared or approved by the U.S. Food and Drug Admin istration. Specimen Anatomical Collection Method Collection Time Receive d Time (Source) Location / / Volume Laterality Blood 01/26/2022 6:58 PM 2 CDT 11:30 AM CDT Darrick Santillan LAB BLOOD ADD-ON Performing Organization Address City/[facility] Phon e Number [facility] - [address] [place], [place] [address] [facility] [place] [address] [facility] 200 [facility] (ABNORMAL) Coagulation Factor IX Activity Assay (01/26/2022 6:58 PM CDT) P athologist Signature Coag Factor IX 29 (L) 65 - 140 % 01/27/2022 DTL Assay, P 12:47 PM CDT Comment: ----ADDITIONAL INFORMATION---- This test has been modified from the Rx[employer]uacturer's instructions. Its performance characteri stics were determined by [facility] in a manner co nsistent [...] [facility] [address] [place], [place] [address] [facility] [place] [place] [address] [facility] [address] [facility] Coagulation Factor VIII Activity Assay (01/26/2022 6:58 PM CDT) P athologist Signature Coag Factor 93 55 - 200 % 01/27/2022 DTL VIII Activity 12:19 PM CDT Assay, P Comment: ----ADDITIONAL INFORMATION---- This test has been modified from the RxRevuacturer's instructions. Its performance characteri stics were determined by [facility] in a manner co nsistent with CLIA requirements. This test has not bee n cleared or approved by the U.S. Food and Drug Admin istration. Specimen Anatomical Collection Method Collection Time Receive d Time (Source) Location / / Volume Laterality Blood 01/26/2022 6:58 PM 2 CDT 11:30 AM CDT Darrick Santillan LAB BLOOD ADD-ON Performing Organization Address City/[facility] Phon e Number [facility] - 200 [place], [place] [address] [facility] [place] [address] [facility] 200 [facility] (ABNORMAL) Coagulation Factor VII Activity Assay (01/26/2022 6:58 PM CDT) P athologist Signature Coag Factor VII 13 (L) 65 - 180 % 01/27/2022 DTL Assay, P 12:19 PM CDT Comment: ----ADDITIONAL INFORMATION---- This test has been modified from the apex cecilacturer's instructions. Its performance characteri stics were determined by [facility] in a manner co nsistent with CLIA requirements. This test has not bee n cleared or approved by the U.S. Food and Drug Admin istration. Specimen Anatomical Collection Method Collection Time Receive d Time (Source) Location / / Volume Laterality Blood 01/26/2022 6:58 PM 2 CDT 11:30 AM CDT Darrick Santillan LAB BLOOD ADD-ON Performing Organization Address City/State/[facility] Code Phon e Number [facility] - 200 [place], [place] [address] [facility] [place] [address] [facility] 200 [facility] (ABNORMAL) Coagulation Factor V Activity Assay (01/26/2022 6:58 PM CDT) P athologist Signature Coag Factor V 18 (L) 70 - 165 % 01/27/2022 DTL Assay, P 12:19 PM CDT Comment: ----ADDITIONAL INFORMATION---- This test has been modified from the apex ufacturer's instructions. Its performance characteri stics were determined by [facility] in a manner co nsistent with CLIA requirements. This test has not bee n cleared or approved by the U.S. Food and Drug Admin istration. Specimen Anatomical Collection Method Collection Time Receive d Time (Source) Location / / Volume Laterality Blood 01/26/2022 6:58 PM 2 CDT 11:30 AM CDT Darrick DanielSSuma LAB BLOOD ADD-ON Performing Organization Address City/[facility] Phon e Number [facility] - 200 [place], [place] [address] [place] [address] [facility] 200 [facility] (ABNORMAL) Coagulation Factor II Activity Assay (01/26/2022 6:58 PM CDT) P athologist Signature Coag Factor II 28 (L) 75 - 145 % 01/27/2022 DTL Assay, P 12:19 PM CDT Comment: ----ADDITIONAL INFORMATION---- This test has been modified from the man ufacturer's instructions. Its performance characteri stics were determined by [facility] in a manner co nsistent with CLIA requirements. This test has not bee n cleared or approved by the U.S. Food and Drug Admin istration. Specimen Anatomical Collection Method Collection Time Receive d Time (Source) Location / / Volume Laterality Blood 01/26/2022 6:58 PM 2 CDT 11:30 AM CDT Darrick Santillan LAB BLOOD ADD-ON Performing Organization Address City/[facility] Code Phon e Number [facility] - 200 [place], [place] [address] [facility] [place] [address] [facility] 200 [facility] (ABNORMAL) Copper (01/26/2022 6:57 PM CDT) P athologist Signature Copper, S 58 (L) 77 - 206 01/27/2022 [facility] mcg/dL 11:02 AM CDT Comment: ----ADDITIONAL INFORMATION---- This test was developed and its performa nce characteristics determined by [facility] in a manner consistent with CLIA requirements. This test has not been cleared or approved by the [place]. [place] d and Drug Administration. Specimen Anatomical Collection Method Collection Time Receive d Time (Source) Location / / Volume Laterality Blood (Blood, 01/26/2022 6:57 PM 01/28/20 22 7:45 Venous) CDT AM CDT Darrick DanielSSuma LAB BLOOD NON ADD-ON Performing Organization Address [facility] Phon e Number [address] [place] [address] TA Mueller (01/26/2022 6:57 PM CDT) athologist Dirk Ervin Lance 66 60 - 106 01/27/2022 [facility] mcg/dL 11:02 AM CDT Comment: ----ADDITIONAL INFORMATION---- This test was developed and its performa nce characteristics determined by [facility] in a manner consistent with CLIA requirements. This test has not been cleared or approved by the U.[place]. Meg[place] d and Drug Administration. Specimen Anatomical Collection Method Collection Time Receive d Time (Source) Location / / Volume Laterality Blood (Blood, 01/26/2022 6:57 PM 01/28/20 22 7:45 Venous) CDT AM CDT Darrick CheryB.SSuma LAB BLOOD NON ADD-ON Performing Organization Address [facility] Phon e Number [address] [place] [address] 05 [place], [place] [id number] [place] [address] Dr. CHAPPELL LDA ANE ENDOTRACHEAL AIRWAY (01/26/2022 3:51 PM CDT) Narrative Gildardo Hickey APRN, CRNA, DNAP - 3:51 PM CDT Gildardo Hickey APRN, CRNA, DNAP ? 01/26/2022 ??4:08 PM Airway Date/Time: 01/26/2022 3:51 PM Performed by: Gildardo Hickey APRN, CR NA, DNAP Authorized by: Brown, Gildardo E, GAS WELDER APPRENTICE, C RNA, DNAP Patient location during procedure: [...] ?? Airway event: no complications Gildardo Hickey GAS WELDER APPRENTICE, EXPANDING MACHINE OPERATOR, DNAP ANESTHESIA ORDERABLES Upper GI endoscopy-Gastroenterology Image Exam (01/26/2022 3:20 PM CDT)Only the most recent of2 resultswithin the time period is included. Specimen (Source) Anatomical Location Collection Method / Collectio n Time Received Time / Laterality Volume Narrative I[facility] - 01/26/2022 10:57 PM CDT This order has been created and auto-finalized to support the import of images acquired without order. The clini ada documentation to support these images can be found on the encounter angelina t produced images. Provider Not In System IMG NON RAD IMAGING PROCEDUR ES Performing Organization Address City/State/ZIP Code Phon e Number IIME IIME NA Upper GI Endoscopy (01/26/2022 3:18 PM CDT) Specimen (Source) Anatomical Collection Method Collection Time Re ceived Time Location / / Volume Laterality 01/26/2022 3:18 PM CDT Impressions [facility] - 01/26/2022 10:50 PM CDT Post-op Diagnoses: ? - Large (> 5 mm) esophageal varic es with no bleeding and no stigmata of ? recent bleeding. Banded x 6. ? - Portal hypertensive gastropathy (non-bleeding). ? - No specimens collected. Narrative [facility] - 01/26/2022 10:50 PM CDT Otto 6 [...] No immedia te complications. Sedation: ? General radiology orderly Participation: I was present a nd participated during the entire ? pro cedure, including non-judd portions. Andreas Price MD 01/26/2022 10:50:15 PM This report has been signed electronical ly. Number of Addenda: 0 Huang Diamond M.D. GI PROCEDURE ORDERABLES Performing Organization Address City/[facility]/ZIP Code Phon e Number [facility] NA Transfuse Fresh Frozen Plasma :INR >2: Invasive proc scheduled; 180 mL/hr (01/26/2022 11:20 AM CDT)Only the most recent of2 resultswithin the time period is included. Darrick Santillan BLOOD TRANSFUSION ORDERABLES (ABNORMAL) Hemoglobin (01/26/2022 11:16 AM CDT)Only the most recent of10 results within the time period is included. athologist Signature Hemoglobin 7.4 (L) 11.6 - 15.0 01/26/2022 [facility] g/dL 11:25 AM CDT Specimen Anatomical Collection Method Collection Time Receive d Time (Source) Location / / Volume Laterality Blood (Blood, 01/26/2022 11:16 01/26/2022 Venous) AM CDT 11:22 AM CDT Gerda Hull M.D., M.S. LAB BLOOD ADD-ON Performing Organization Address City/State/ZIP Code Phon e Number [facility] - [address] [place], [place] [address] [facility] [place] [address] Laboratories-[address] Transfuse Emergency Released Red Blood Cells [...] City/State/ZIP Code Phon e Number [facility] - [address] [place] [address] 05 [place] [address] Laboratories-[address] HIV-1/-2 Ag and Ab Screen, Plasma [...] 22 Venous) CDT 10:34 AM CDT Darrick Santana. LAB MICROBIOLOGY - BLOOD ORD ERABLES Performing Organization Address City/[facility] Phon e Number [facility] [address] [place], [place] [address] 05 [place] [address] [facility] [address] [place] Transfuse Red Blood Cells : [...] Santillan LAB BLOOD ADD-ON Performing Organization Address [facility] Phon e Number [facility] - [address] [place] [address] 55 05 [place] [address] [facility] 200 [facility] (ABNORMAL) SPSMA Result (01/25/2022 5:35 AM CDT)Only [...] Reviewed by: Ruth 01/25/2022 7:03 AM CDT [facility] Specimen Anatomical Collection Method Collection Time Receive d Time (Source) Location / / Volume Laterality Blood (Blood, 01/25/2022 5:35 AM 01/26/20 5:57 Venous) CDT AM CDT Darrick DanielS. LAB BLOOD ADD-ON Performing Organization Address City/[facility] Code Phon e Number [facility] - [address] [address] Laboratories-[address] LD (Lactate Dehydrogenase) (01/25/2022 5:35 AM CDT)Only the most recent of2 resultswithin the time period is included. [facility] LD 197 122 - 222 01/25/2022 DTL U/L 6:35 AM CDT Specimen Anatomical Collection Method Collection Time Receive d Time (Source) Location / / Volume Laterality Blood (Blood, 01/25/2022 5:35 AM 01/26/20 6:18 Venous) CDT AM CDT Darrick DanielSSuma LAB BLOOD NON ADD-ON Performing Organization Address City/[facility]/ZIP Code Phon e Number [facility] - 200 [place], [place] [address] [facility] [place] [place] [address] Laboratories-[address] (ABNORMAL) Haptoglobin (01/25/2022 5:35 AM CDT)Only the most recent of2 results within the time period is included. [facility] Haptoglobin, S <14 (L) 30 - 200 01/26/2022 [facility]SC mg/dL 10:51 AM CDT Specimen Anatomical Collection Method Collection Time Receive d Time (Source) Location / / Volume Laterality Blood 01/25/2022 5:35 AM 6:58 CDT AM CDT Darrick Santillan LAB BLOOD ADD-ON Performing Organization Address City/State/ZIP Code Phon e Number [facility] [address] [place], [place] [address] [facility] [place] [address] [facility] [address] [place] (ABNORMAL) Reticulocytes (01/25/2022 5:30 AM CDT) [facility] Method Time Signature Reticulocytes, B 6.67 [...] [facility] - [address] [place], [place] [address] [facility] DTL [address] Direct Antiglobulin Test (Poly) (01/25/2022 5:30 AM CDT) [facility] Method Time Signature Direct Negative Negative [...] [facility] - [address] [place], [place] [address] [facility] [place] [address] [facility] [address] Magnesium (01/25/2022 5:30 AM CDT)Only the [...] Santillan LAB BLOOD ADD-ON Performing Organization Address City/[facility] Phon e Number [facility] - [address] Sodium, Random, Urine (01/24/2022 3:32 PM [...] M.D. LAB URINE ORDERABLES Performing Organization Address [facility] Phon e Number [facility] - [id number] [place] [address] Creatinine, Random, Urine (01/24/2022 3:32 PM CDT) athologist Signature Creatinine, 60 16 - 326 01/24/2022 DTL Random, U mg/dL 4:50 PM CDT Specimen Anatomical Collection Method Collection Time Receive d Time (Source) Location / / Volume Laterality Urine (Urine, 01/24/2022 3:32 PM 01/25/20 22 3:59 Midstream) CDT PM CDT Yue Silver M.D. LAB URINE ORDERABLES Performing Organization Address [facility] Phon e Number [facility] - [address] (ABNORMAL) Bilirubin, Total (01/24/2022 1:35 PM [...] Santillan LAB BLOOD ADD-ON Performing Organization Address [facility] Phon e Number [facility] - [address] Upper GI Endoscopy (01/23/2022 3:35 PM CDT) Specimen (Source) Anatomical Collection Method Collection Time Re ceived Time Location / / Volume Laterality 01/23/2022 3:35 PM CDT Impressions [facility] - 01/23/2022 4:08 PM CDT Post-op Diagnoses: [...] examination. ? - No specimens collected. Narrative [employer] - 01/23/2022 4:08 PM CDT Otto [...] Organization Address City/State/ZIP Code Phon e Number [employer] NA Protein, Total, Body Fluid (01/21/2022 [...] ical findings. All other fluids refer to [email or web address] for further inter pretive information. This test has been modified from the day care worker's instructions. Its perform ance characteristics were determined by [facility] in a manner consistent with [...] Becerril M.D. LAB BODY FLUIDS AND STOOLS Marylou GARCIA Performing Organization Address [facility] Phon e Number [facility] - [address] [place] [address] 05 [place] [address] Laboratories-[address] Bacterial Culture, Aerobic + Susc (01/21/2022 [...] Fluid) Comment: Specimen Source Site: Fluid Narrative [facility] - [facility] - 01/26/2022 7:48 AM CDT Bacterial Culture: Received Bactec aerob ic and Bactec anaerobic bottles Matthew Becerril M.D. LAB MICROBIOLOGY - GENERAL Marylou GARCIA Performing Organization Address City/[facility] Phon e Number [address] [place] [address] [facility]-[address] (ABNORMAL) Iron and Total Iron-Binding Capacity [...] M.D. LAB BLOOD ADD-ON Performing Organization Address City/[facility] Phon e Number [facility] - 200 [place], [place] [address] [place] [address] (ABNORMAL) Ferritin (01/21/2022 7:21 AM CDT) athologist Signature Ferritin, S 564 (H) 11 - 307 01/22/2022 DTL mcg/L 5:18 PM CDT Specimen Anatomical Collection Method Collection Time Receive d Time (Source) Location / / Volume Laterality Blood (Blood, 01/21/2022 7:21 AM 01/23/20 4:23 Venous) CDT PM CDT Sree Little M.D. LAB BLOOD ADD-ON Performing Organization Address City/[facility] Phon e Number [facility] - [address] [place], [place] [address] 05 [place], [place] [id number] [place] [address] Lipase (01/21/2022 2:40 AM CDT)Only the most [...] M.D. LAB BLOOD ADD-ON Performing Organization Address City/[facility]/ZIP [facility] Phon e Number [facility] - [address] [place], [place] [address] [place] [address] Microscopic Automated (01/20/2022 8:57 PM CDT)Only the [...] M.D. LAB URINE ORDERABLES Performing Organization Address City/[facility]/ZIP Code Phon e Number [facility] - [address] [place], [place] [address] 05 [facility] [place] [address] Laboratories-[address] Bacterial Culture, Aerobic + Susc, Urine [...] - GENERAL O RDERABLES Performing Organization Address City/[facility]/ZIP Code Phon e Number [facility] - [address] [place], [place] [address] 05 [facility] [place] [address] Laboratories-[address] pH, Urine (01/20/2022 8:57 PM CDT)Only the most recent of2 resultswithin the time period is included. P athologist Signature pH, U 5.5 4.5 - 8.0 01/20/2022 9:48 DTL PM CDT Specimen Anatomical Collection Method Collection Time Receive d Time (Source) Location / / Volume Laterality Urine 01/20/2022 8:57 PM 9:23 CDT PM CDT Cody Knight M.D. LAB URINE ORDERABLES Performing Organization Address City/[facility]/ZIP Code Phon e Number [id number] [place] [address] Osmolality, Urine (01/20/2022 8:57 PM CDT)Only the most recent of2 resultswithin the time period is included. athologist Signature Osmolality, U 401 150 - 1150 01/20/2022 DTL mOsm/kg 9:48 PM CDT Specimen Anatomical Collection Method Collection Time Receive d Time (Source) Location / / Volume Laterality Urine 01/20/2022 8:57 PM 9:23 CDT PM CDT Cody Knight M.D. LAB URINE ORDERABLES Performing Organization Address [facility] e Number [id number] [place] [address] hCG (Human Chorionic Gonadotropin), Quantitative, (01/20/2022 8:49 PM CDT)Only the most recent of4 resultswithin the time period is included. athologist Signature HCG, 0.5 <5 IU/L 01/20/2022 [facility] Quantitative, 9:19 PM CDT , P Specimen Anatomical Collection Method Collection Time Receive d Time (Source) Location / / Volume Laterality Blood (Blood, 01/20/2022 8:49 PM 01/21/20 9:01 Venous) CDT PM CDT Cody Knight M.D. LAB BLOOD ADD-ON Performing Organization Address City/[facility] Phon e Number [address] Drug Screen Urine (01/10/2022 1:46 PM CDT)Only the most recent of2 resultswithin [...] Number [facility] - [address] [place] [address] 05 [facility] [place] [place] [address] Laboratories-[facility] [address] [place] Liver with [...] (LD), Body Fluid (01/10/2022 9:51 AM CDT) [facility] Method Time Signature Lactate 41 See [...] clinical findings. All other fluids refer to [email or web address] for further interpretive information. This test has been modified from the man ufacturer's instructions. Its performance characteristics were det ermined by [facility] in a manner consistent with [...] [facility] [address] [place], [place] [address] [facility] [place] [place] [address] Laboratories-[facility] [address] Glucose, Body Fluid [...] of infection. All other fluids refer to [email or web address] for further inter pretive information. This test has been modified from the mary free bed rehabilitation hospitalacturer's instructions. Its performance characteri stics were determined by [facility] in a manner co nsistent [...] Number [facility] - [address] [place] [address] 05 [facility] [place] [address] Laboratories-[facility] 200 [facility] Amylase, Body Fluid (01/10/2022 9:51 AM CDT) [...] atio <1.0. All other fluids refer to [email or web address] for further inter pretive information. This test has been modified from the apex NovaSysacturer's instructions. Its performance characteri stics were determined by [facility] in a manner consistent wi CLIA [...] AND STOOLS O JOSE Performing Organization Address City/[facility] Phon e Number [facility] - [address] [place], [place] [address] [place] [address] Albumin, Body Fluid (01/10/2022 9:51 AM [...] process. ?? All other fluids refer to [email or web address] for further interpretive information. This t est has been modified from the day care worker's instruc tions. Its performance characteristics were determi foreign by [facility] in a manner consistent with [...] AND STOOLS Marylou GARCIA Performing Organization Address City/[facility]/ZIP Code Phon e Number [facility] - [address] [place], [place] [address] [place] [id number] [place] [address] DX Chest Portable 1 View (01/09/2022 4:34 [...] Cornelia Jurado M.D. IMTristan DIAGNOSTIC IMAGING PROCE [facility] SARS Coronavirus 2, RNA, Rapid POC, V Asymptomatic (01/09/2022 1:45 PM CDT) [facility] Method Time Signature SARS Undetected Undetected 01/09/2022 DTLR Coronavirus-2 2:05 PM CDT , RNA, Rapid POC, V Comment: Negative for SARS-CoV-2. The [employer] COVID-19 test is a molecular jonathan t for SARS-CoV-2, the virus that causes COVID- 19. A Negative result means that the [employer] COV ID-19 test did not detect SARS-CoV-2 virus in your sample. [employer] COVID-19 test uses the HEROZ nitoring System. This test has received Emergency Use Authorization (EUA) by the U.S. Food and Drug Administration (FDA) and is used per man ufacturer instructions. Performance characteristic s were verified by [facility] in a manner consistent with CLIA requirements. Fact sheets for this Emerg ency Use Authorization (EUA) can be found at the following links: Providers: https://LikeLike.com.com/documentation/prov iders.pdf Patients: https://LikeLike.com.com/documentation/deshawn ents.pdf SARS Coronavirus 2, Source Nasopharynx DEFAULT 01/09/2022 2:05 PM CDT DTLR Specimen Anatomical Collection Method Collection Time Receive d Time (Source) Location / / Volume Laterality Varies 01/09/2022 1:45 PM 1:45 (Nasopharynx) CDT PM CDT Reese Reyes M.D. LAB MICROBIOLOGY - GENERAL O RDERABLES Performing Organization Address City/[facility]/ZIP Code Phon e Number PERFORMING LABS, REF [place] [address] INTERFACE Ref Interface 200 [facility] DTLR Performing Labs, [place] [address] Interface 200 [facility] Glucose, POCT (01/09/2022 10:04 AM CDT)Only the [...] P.A.-C. LAB POCT ORDERABLES-MANUAL Performing Organization Address City/[facility] Code Phon e Number [facility] - [address] [place], [place] [address] [facility] [place] [address] Laboratories-[facility] [address] [facility] Paracentesis (12/21/2021 2:48 PM CDT) Narrative [...] (THC) Confirmation, Urine (12/15/2021 5:58 PM CDT) [facility] Method Time Signature Carboxy-THC- by 19 Cutoff: 12/18/2021 [facility] GC/MS 3.0 ng/mL 6:38 AM CDT Carboxy-THC Positive. 12/18/2021 [facility] Interpretation 6:38 AM CDT Comment: ----ADDITIONAL INFORMATION---- This report is intended for use in clini ada monitoring and management of patients. ??It is not intended for use i n employment-related testing. This test was developed and its performa nce characteristics determined by [facility] in a manner consistent with CLIA requirements. This test has not been cleared or approved by the U.S. Meggan d and Drug Administration. Specimen Anatomical Collection Method Collection Time Receive d Time (Source) Location / / Volume Laterality Urine 12/15/2021 5:58 PM 2 7:09 CDT AM CDT Adeline Frazier M.D., Ph.D. LAB URINE ORDERABLES Performing Organization Address [facility] Phon e Number [facility] [address] [place] [address] [facility] [place] [address] Laboratory Medicine and Pathology [address] [place] [address] Dr. [place] Ethyl Glucuronide Confirmation, Random, Urine (12/15/2021 5:51 PM CDT) Patholo gist Method Time Signature Ethyl Glucuronide Negative Cutoff: 12/17/2021 [facility] Confirmation, U 250 ng/mL 10:34 AM CDT Ethyl Sulfate Negative Cutoff: [facility] ng/mL 10:34 AM CDT Ethyl Gluc/Sulfate Negative. 12/17/2021 [facility] Interpretation 10:34 AM CDT Comment: ----ADDITIONAL INFORMATION---- This report is intended for use in clini ada monitoring and management of patients. ??It is not intended for use i n employment-related testing. This test was developed and its performa nce characteristics determined by [facility] in a manner consistent with CLIA requirements. This test has not been cleared or approved by the U.S. Meggan d and Drug Administration. Specimen Anatomical Collection Method Collection Time Receive d Time (Source) Location / / Volume Laterality Urine (Urine, 12/15/2021 5:51 PM 12/16/19 9:55 Midstream) CDT PM CDT Adeline Frazier M.D., Ph.D. LAB URINE ORDERABLES Performing Organization Address [facility] Phon e Number [address] [place] [address] 05 [facility] [place] [address] Laboratory Medicine and Pathology [address] [place] [address] Dr. [place] Phosphatidylethanol (Peth), whole blood- Sent Out Lab (12/15/2021 5:39 PM CDT) Component Value Ref Range Test Analysis Performed Pathologis t Method Time At Signature Phosphatidylethanol NEGATIVE NEGATIVE 12/26/2021 MTI (PEth) ng/mL 1:01 PM CDT Comment: Analyzed compound: PEth 16:0/18:1. ? 3-qddwessrn-1-oxskrd-cj-ogvpmkg-3 -phosphoethanol. ? Analysis performed by Liquid Chromatogra [...] and its performa nce characteristics determined by [employer]. It has not been c leared or approved by the Food and Drug Administration. Specimen Anatomical Collection Method Collection Time Receive d Time (Source) Location / / Volume Laterality Blood (Blood, 12/15/2021 5:39 PM 12/17/19 8:26 Venous) CDT AM CDT Adeline Frazier M.D., Ph.D. LAB BLOOD NON ADD-ON Performing Organization Address City/State/ZIP Code Phon e Number [employer] [address] [place] [address] 2 [employer], NCLC. [place], [place] [id number] [place] [address] Paracentesis (12/04/2021 9:57 AM CDT) Narrative Blanquita [...] [facility] - 200 [place], [place] [address] [place] [address] Laboratories-[facility] [address] (ABNORMAL) Blood Gas with Coox, Venous (12/04/2021 7:30 AM CDT) [facility] gist Method Time Signature Venous pO2 [...] [facility] - [address] [place], [place] [address] 05 [place] [address] Laboratories[facility] [address] [facility] Phosphorus Inorganic (11/25/2021 6:55 AM CDT)Only [...] [facility] - [address] [place] [address] [facility] [place] [place] [address] Laboratories-[facility] [address] SW DX Abdomen Portable Anterior Posterior 1 View (11/25/2021 6:06 AM CDT)Only the most recent of3 resultswithin [...] IMG DIAGNOSTIC IMAGING PROCE DURES Pernicious Anemia [place] (11/21/2021 11:25 AM CDT) athologist Signature Vitamin B12 621 180 - 914 11/21/2021 [facility] Assay, S ng/L 6:21 PM CDT Specimen Anatomical Collection Method Collection Time Receive d Time (Source) Location / / Volume Laterality Blood (Blood, 11/21/2021 11:25 11/21/2021 4:05 Venous) AM CDT PM CDT Dina Campa M.D. LAB BLOOD NON ADD-ON Performing Organization Address City/[facility]/ZIP Code Phon e Number [facility] [address] [place], [place] [address] [facility] [place] [address] Laboratory Medicine and Pathology [address] [place] [address] Dr. [place] Copper, 24 Hour, Urine (11/21/2021 11:00 AM CDT) athologist Signature Copper, 24 Hr, U 19 9 - 71 11/24/2021 [facility] mcg/24 h 10:42 AM CDT Collection 24 h 11/24/2021 [facility] Duration 10:42 AM CDT Volume 815 mL 11/24/2021 [facility] 10:42 AM CDT Comment: ----ADDITIONAL INFORMATION---- This test was developed and its performa nce characteristics determined by [facility] in a manner consistent with [...] Organization Address City/State/ZIP Code Phon e Number [address] [place], [place] [address] [facility] [place] [address] Laboratory Medicine and Pathology [address] [place] [address] Dr. [place] (ABNORMAL) Ceruloplasmin (11/20/2021 6:38 AM [...] at or the on-line test catalog at [employer] for m ore information. Specimen Anatomical Collection Method Collection Time Receive d Time (Source) Location / / Volume Laterality Blood (Blood, 11/20/2021 6:38 AM 11/21/19 22 8:33 Venous) CDT AM CDT Gerard Andino M.D., M.S. LAB BLOOD ADD-ON Performing Organization Address City/[facility] Phon e Number [facility] - [address] Sedimentation Rate (11/19/2021 2:55 PM CDT) Analysis Performed At [facility] Time Signature Sedimentation 2 2 - 20 11/19/2021 DTL Rate, B mm/h 4:02 PM CDT Specimen Anatomical Collection Method Collection Time Receive d Time (Source) Location / / Volume Laterality Blood (Blood, 11/19/2021 2:55 PM 11/20/19 22 3:17 Venous) CDT PM CDT Gerard Andino M.D., M.S. LAB BLOOD ADD-ON Performing Organization Address City/[facility] Phon e Number [facility] - 200 [place] [phone] [address] EEG prolonged (11/17/2021 10:14 AM CDT) [...] Rodriguez M.D. NEUROLOGY ORDERABLES Performing Organization Address [facility] Phon e Number MMODAL MMODAL NA EEG [...] Rodriguez M.D. NEUROLOGY ORDERABLES Performing Organization Address [facility] Phon e Number MMODAL MMODAL NA MR [...] City/State/ZIP Code Phon e Number [facility] - [address] [place], [place] [address] [facility] [place] [place] [address] Laboratories-[facility] [address] from Last 3 Months Insurance Payer Benefit Plan / Subscriber ID Effective Phone Address T ype Group Dates [employer] [place] [id number] 2018-Prese [address] [address] Medicaid HMO BLUE SHIELD RESTRICTED PLAN nt [facility] [id number] [place] [address] Advance Directives For more information, please contact: [phone] Latest Code Status on File Code Status Date Activated Date Inactivated Comments Full Code 02/02/2022 5:56 AM 02/03/2022 8:18 PM Question Answer Comments Full Code: Discussed Code Status History Code Status Date Activated Date Inactivated Comments Full Code 01/21/2022 6:06 AM 01/29/2022 2:06 PM Question Answer Comments Full Code: Discussed Full Code 01/09/2022 3:35 PM 01/14/2022 7:53 PM Question Answer Comments Full Code: Discussed discussed with derik hernández decision maker Full Code 11/12/2021 6:52 AM 11/26/2021 3:46 PM Question Answer Comments Full Code: Not Discussed Due to: Patient does not have the capacity Full Code 11/09/2021 5:51 PM 11/11/2021 4:25 PM Question Answer Comments Full Code: Not Discussed Due to: Not medically appropriate Care Teams Bridge Gang Worker Relationship Specialty Start Date End Date Ana Red P.A.-C. PCP - General Internal Medicine 12/01/21 [facility] [place] [phone] [facility]- [place] lab 08/25/21 Ervin Schroeder MD Referring Provider Family Medicine 03/24/[address] [place] [address]
--- OUTSIDE RECORDS SUMMARY | 2022-02-14 21:58 | XMS_ITS | Encounter Summary ---
:1990 Author Organization [facility] Address [address] [place] [address] Care Team Providers Name Role Phone Ana Red P.A.-C. Primary Care Provider [phone] Reason for Visit Reason Comments Phone Contact RN and MD follow up Encounter Details Date Type Department Care Team Description 02/04/2022 Clinical Department of [facility] Phone Contact (RN Communication Gastroenterology in Y, M.B.B.S., and MD follow up) [facility] [facility] [address] [place] [address] [place] [phone] Social History Tobacco Use Types Packs/Day Years [...] you attend christian or Patient refused 2021 latter-day services? 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 Jerome moved up to [place]. When I spoke with patient she stated Dr. Jerome is great but she'd rather see a [place] provider. She says [facility] keeps cancelling appts without telling her. Wasn't sure if we were able to schedule with clinic MD and schedule phone screen virtually? Please advise and I will call pt back to confirm appts. Thank you! documented in this encounter Plan of Treatment Upcoming Encounters Date Type Specialty Care Team Description Telemedicine Transplant 2 Appointment Radiology Matthew Jerome 2 YVikBGraeme, Lilian [address] [place] [phone] Appointment Gastroenterology demian Silver, 2 Hepatology Yue Burciaga M.D. [address] [place] [phone] Virtual Visit Transplant Matthew Jerome 2 YTyrell, Lilian [address] [place] [phone] Office Visit Gastroenterology and Matthew Jerome 2 Hepatology Tyrell Rodriguez M.D. [address] [place] [phone] Appointment Radiology Matthew Jerome 2 YJoshuaBSumaBLilian Bedolla [address] [place] [phone] [facility] Gastroenterology and Matthew Jerome Cirrhos is Alcoholic (HCC) 2 Encounter Hepatology Joshua RodriguezBSumaBLiilan Bedolla [address] [place] [phone] Anesthesia Event Gastroenterology and Rl, 2 Hepatology Ervin Burgos M.D. [address] [place] [phone] Surgery Gastroenterology and Mousa, Matthew ESOPHAG OGASTRODUODENOSCOPY 2 Hepatology Tyrell Rodriguez M.D. [address] [place] [phone] Scheduled Procedures Name Priority Associated Diagnoses Date/Time ESOPHAGOGASTRODUODENOSCOPY Cirrhosis Alc oholic (HCC) 03/20/2022 8:45 AM TRAVELING PHLEBOTOMIST Hypertension Portal (HCC) documented as of this encounter Visit Diagnoses Not on filedocumented in this encounter Additional Health Concerns Assessment Noted Time PHQ-9 Depression Total Score: 10 10/06/2021 5:00 PM CD T documented as of this encounter Care Teams Sales Planning Manager Relationship Specialty Start Date End Date Ana Red P.A.-C. PCP - General Internal Medicine 12/01/[address] [place] [phone] [facility]- [place] lab 08/25/21 Ervin Schroeder MD Referring Provider Family Medicine 03/24/[address] [place] [address] documented as of this encounter
--- OUTSIDE RECORDS SUMMARY | 2022-02-14 21:58 | XMS_ITS | Encounter Summary ---
:1990 Author Organization [facility] Address [address] [place] [address] Care Team Providers Name Role Phone Ana Red P.A.-C. Primary Care Provider [phone] Reason for Visit Reason Comments Medication Problem Encounter Details Date Type Department Care Team Description 02/13/2022 [facility] Internal Medicine in [place], [place] [address] [facility] [address] [place], [place] [phone] [phone] Social History Tobacco Use Types Packs/Day Years [...] you attend jewish or Patient refused 2021 buddhism services? Do you belong to any clubs or No 02/10/2022 organizations such as jewish groups, unions, fraAskNshare or athletic groups, or school groups? 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 - 02/13/2022 4:57 PM CDT Chief Complaint / Reason for Call Patient is a 31 y.o. female calling regarding Medication Problem. Assessment Concern: Pain. She says her pain is 8/10. She says the oxy is no longer working. T11-12 Wedge Compression . Fracture Lumbar L1 L2 , L3, L5 . She says that her PCP advised her to let her know if the Oxywas no longer working. She says it is no longer working. She put a portal message in at 2:26 pm and has not heard back yet. She says she cannot go to a different clinic because of insurance. She says insurance will not pay . She says insurance will not pay if another doctor issues pain medications. Her PCP has left for the day Discussed options : ER . And maybe wait 30-60 minutes as her PCP might answer messages after hours. Patient was warm transferred to [facility] at the clinic for further assistance. Offered her an appointment tomorrow in another clinic: declined. documented in this encounter Plan of Treatment Upcoming Encounters Date Type Specialty Care Team Description Telemedicine Transplant 2 Appointment Radiology Matthew Jerome 2 Tyrell Rodriguez M.D. [address] [place] [phone] Appointment Gastroenterology and Adrianne, 2 Hepatology Yue Burciaga M.D. [address] [place] [phone] Virtual Visit Transplant Matthew Jerome 2 Vik RodriguezBLilian Bedolla [address] [place] [phone] Office Visit Gastroenterology and Matthew Jerome 2 Hepatology Vik RodriguezBLilian Bedolla [address] [place] [phone] Appointment Radiology Matthew Jerome 2 YJoshuaB.BLilian Bedolla [address] [place] [phone] Hospital Gastroenterology and Matthew Jerome Cirrhos is Alcoholic (HCC) 2 Encounter Hepatology Vik RodriguezBLilian Bedolla [address] [place] [phone] Anesthesia Event Gastroenterology and Rl, 2 Hepatology Ervin Burgos M.D. 10[address] [place] [phone] Surgery Gastroenterology and Mousa, Matthew ESOPHAG OGASTRODUODENOSCOPY 2 Hepatology Tyrell Rodriguez M.D. [address] [place] [phone] Scheduled Procedures Name Priority Associated Diagnoses Date/Time ESOPHAGOGASTRODUODENOSCOPY Cirrhosis Alc oholic (HCC) 03/20/2022 8:45 AM ENVIRONMENTAL ENGINEERING MANAGER Hypertension Portal (HCC) documented as of this encounter Visit Diagnoses Not on filedocumented in this encounter Additional Health Concerns Assessment Noted Time PHQ-9 Depression Total Score: 10 10/06/2021 5:00 PM CD T documented as of this encounter Care Teams Planer Tailer Relationship Specialty Start Date End Date Ana Red P.A.-C. PCP - General Internal Medicine 12/01/[address] [place] [phone] [facility]- [place] lab 08/25/21 Ervin Schroeder MD Referring Provider Family Medicine 03/24/[address] [place] [address] documented as of this encounter
--- OUTSIDE RECORDS SUMMARY | 2022-02-14 21:58 | XMS_ITS | Encounter Summary ---
:1990 Author Organization [facility] Address [address] [place] [address] Care Team Providers Name Role Phone Ana Red P.A.-C. Primary Care Provider [phone] Reason for Visit Reason Comments Phone Contact Encounter Details Date Type Department Care Team Description 02/10/2022 Clinical Communication Ramirez Marshall, Om ar Y, Phone Contact Center for Lilian Santillan Transplantation and [address] [place] [address] Clinical Regeneration in [place], [place] [address] [address] [facility] [phone] [place], [place] [phone] (Work) [phone] Social History Tobacco Use Types Packs/Day Years [...] you attend yazidism or Patient refused 2021 yarsani services? Do [...] or the highest technical, or vocational p [facility] degree you have received? 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 Blanca Henson called from [facility]. She did a CT scan of pt and would like to go over the results with someone from pt's care team. Please call back at [phone] Rios. Including Dr. Queenie mcmahan he can contact provider back sooner. Thank you in advance documented in this encounter Plan of Treatment Upcoming Encounters Date Type Specialty Care Team Description Telemedicine Transplant 2 Appointment Radiology LuisMatthew abdul 2 YTyrell M.D. [address] [place] [phone] Appointment Gastroenterology demian Silver, 2 Hepatology Yue Burciaga M.D. [address] [place] [phone] Virtual Visit Transplant Matthew Jerome 2 YTyrell M.D. [address] [place] [phone] Office Visit Gastroenterology and [place] Jerome[place] 2 Hepatology Tyrell Rodriguez M.D. [address] [place] [phone] Appointment Radiology LuisMatthew abdul 2 YTyrell M.D. [address] [place] [phone] Hospital Gastroenterology and Matthew Jerome Cirrhos is Alcoholic (HCC) 2 Encounter Hepatology Vik RodriguezBLilian Bedolla [address] [place] [phone] Anesthesia Event Gastroenterology and Rl, 2 Hepatology Ervin Burgos M.D. [address] [place] [phone] Surgery Gastroenterology and Matthew Jerome ESOPHAG OGASTRODUODENOSCOPY 2 Hepatology Vik RodriguezBLilian Bedolla [address] [place] [phone] Scheduled Procedures Name Priority Associated Diagnoses Date/Time ESOPHAGOGASTRODUODENOSCOPY Cirrhosis Alc oholic (HCC) 03/20/2022 8:45 AM AQUACULTURAL WORKER SUPERVISOR Hypertension Portal (HCC) documented as of this encounter Visit Diagnoses Not on filedocumented in this encounter Additional Health Concerns Assessment Noted Time PHQ-9 Depression Total Score: 10 10/06/2021 5:00 PM CD T documented as of this encounter Care Teams Director Patient Accounting Relationship Specialty Start Date End Date Ana Red P.A.-C. PCP - General Internal Medicine 12/01/[address] [place] [address] ADI PANIAGUA [phone] [facility]- [place] lab 08/25/21 Ervin Schroeder MD Referring Provider Family Medicine 03/24/[address] [place] [address] ADI Paniagua [phone] documented as of this encounter
--- OUTSIDE RECORDS SUMMARY | 2022-02-14 21:58 | XMS_ITS | Encounter Summary ---
:1990 Author Organization [facility] Address [address] [place] [address] Care Team Providers Name Role Phone Ana Red P.A.-C. Primary Care Provider [phone] Reason for Visit Reason Comments Post Hospital Follow-up Encounter Details Date Type Department Care Team Description 02/10/2022 Clinical Communication Department of [facility] Internal Myrtle Govea Follow-up Medicine in [address] [phone] [facility] [place] [phone] (Work) [phone] Social History Tobacco Use Types Packs/Day Years [...] you attend cheondoism or Patient refused 2021 yarsanism services? 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 - 02/10/2022 12:08 PM CDT Unable to complete FU call. Patient spoke with [facility] this am due to symptoms she was experiencing. Patient was advised to present to the ED. From notes, it appears as though she is currently at [facility]. They were trying to get her transferred to [facility], no beds available, they wereadvised to call again in 24 hours. Telephone Encounter - Xuan Malcolm R.N. - 02/10/2022 7:42 AM CDT Catia Carias is not eligible for the Adult Medical Care Coordination Program and needs the PHFU call to be completed. Patient was [facility] from the [facility] on 02/09/22 at 1652. [facility] Exclusion Criteria: Evaluating for Liver Transplant Pt has PHFU appts on 02/11/22 and 02/13/22- clarify which appointment patient will attend documented in this encounter Plan of Treatment Upcoming Encounters Date Type Specialty Care Team Description Telemedicine Transplant 2 Appointment Radiology Matthew Jerome 2 Tyrell Rodriguez M.D. [address] [place] [phone] Appointment Gastroenterology and Adrianne, 2 Hepatology Yue Burciaga M.D. [address] [place] [phone] Virtual Visit Transplant Matthew Jerome 2 Tyrell Rodriguez M.D. [address] [place] [phone] Office Visit Gastroenterology and Matthew Jerome 2 Hepatology Tyrell Rodriguez M.D. [address] [place] [phone] Appointment Radiology Matthew Jerome 2 Tyrell Rodriguez M.D. [address] [place] [phone] Hospital Gastroenterology and Matthew Jerome Cirrhos is Alcoholic (HCC) 2 Encounter Hepatology Tyrell Rodriguez M.D. [address] [place] [phone] Anesthesia Event Gastroenterology and Rl, 2 Hepatology Ervin Burgos M.D. [address] [place] [phone] Surgery Gastroenterology and Mousa, Matthew ESOPHAG OGASTRODUODENOSCOPY 2 Hepatology Tyrell Rodriguez M.D. [address] [place] [phone] Scheduled Procedures Name Priority Associated Diagnoses Date/Time ESOPHAGOGASTRODUODENOSCOPY Cirrhosis Alc oholic (HCC) 03/20/2022 8:45 AM BELT OPERATOR Hypertension Portal (HCC) documented as of this encounter Visit Diagnoses Not on filedocumented in this encounter Additional Health Concerns Assessment Noted Time PHQ-9 Depression Total Score: 10 10/06/2021 5:00 PM CD T documented as of this encounter Care Teams Balance Truer Relationship Specialty Start Date End Date Ana Red P.A.-C. PCP - General Internal Medicine 12/01/[address] [place] [phone] [facility]- [place] lab 08/25/21 Ervin Schroeder MD Referring Provider Family Medicine 03/24/[address] [place] [address] documented as of this encounter
--- OUTSIDE RECORDS SUMMARY | 2022-02-14 21:59 | XMS_ITS | Encounter Summary ---
:1990 Author Organization [facility] Address [address] [place] [address] Care Team Providers Name Role Phone Ana Red P.A.-C. Primary Care Provider [phone] Encounter Details Date Type Department Care Team Description 02/02/2022 Clinical Communication Department of [facility] [place] Farida Perez Medicine in [address] [address] [place], [place] [phone] (Work) [phone] Social History Tobacco Use Types Packs/Day Years [...] you attend episcopal or Patient refused 2021 baptism services? 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 [phone] Telephone Encounter - Paty Stevens - 02/02/2022 10:39 AM CDT Reason for Communication: Patients calling in and stated that she is in [facility] and is needing the provider to [...] Radiology Matthew Jerome 2 Joshua RodriguezB.B.SSuma, Lilian [address] [place] [phone] Appointment Gastroenterology and Adrianne, 2 Hepatology Yue Burciaga M.D. [address] [place] [phone] Virtual Visit Transplant Matthew Jerome 2 Joshua RodriguezBSumaBSumaSLilian Moise [address] [place] [phone] Office Visit Gastroenterology and Matthew Jerome 2 Hepatology Vik RodriguezBLilian Bedolla [address] [place] [phone] Appointment Radiology Matthew Jerome 2, M.B.B.S., M.D. [address] [place] [phone] Hospital Gastroenterology and [facility] Cirrhos is Alcoholic (HCC) 2 Encounter Hepatology Tyrell Rodriguez M.D. [address] [place] [phone] Anesthesia Event Gastroenterology and Rl, 2 Hepatology Ervin Burgos M.D. [address] [place] [phone] Surgery Gastroenterology and [facility] ESOPHAG OGASTRODUODENOSCOPY 2 Hepatology Tyrell Rodriguez M.D. 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 PCP - General Internal Medicine 12/01/[address] [place] [address] [place] [phone] [facility]- [place] lab 08/25/21 Ervin Schroeder MD Referring Provider Family Medicine 03/24/[address] [place] [address] [place] [address] documented as of this encounter
--- OUTSIDE RECORDS SUMMARY | 2022-02-14 21:59 | XMS_ITS | Encounter Summary ---
:1990 Author Organization [facility] Address [address] [place] [address] Care Team Providers Name Role Phone Ana Red P.A.-C. Primary Care Provider Reason for Visit Reason Comments Med Refill Encounter Details Date Type Department Care Team Description 01/29/2022 Refill Department of [facility] Ana Red , Med Refill Internal Medicine in [place], [place] 300 [facility] 300 [facility] [place] [address] [place] [address] [phone] Social History Tobacco Use Types Packs/Day Years [...] you attend spiritism or Patient refused 2021 zoroastrianism services? 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 [address] [place] [phone] Virtual Visit Transplant Matthew Jerome 2 YVikB.Kath, Lilian [address] [place] [phone] Office Visit Gastroenterology and [facility] 2 Hepatology Tyrell Rodriguez M.D. [address] [place] [phone] Appointment Radiology [facility] Matthew 2 Tyrell Rodriguez M.D. [address] [place] [phone] Hospital Gastroenterology and [facility] Cirrhos is Alcoholic (HCC) 2 Encounter Hepatology Tyrell Rodriguez M.D. [address] [place] [phone] Anesthesia Event Gastroenterology and Rl, 2 Hepatology Ervin Burgos M.D. [address] [place] [phone] Surgery Gastroenterology and [facility] ESOPHAG OGASTRODUODENOSCOPY 2 Hepatology Tyrell Rodriguez M.D. [address] [place] [phone] Scheduled Procedures Name Priority Associated Diagnoses Date/Time ESOPHAGOGASTRODUODENOSCOPY Cirrhosis Alc oholic (HCC) 03/20/2022 8:45 AM FORMING OPERATOR Hypertension Portal (HCC) documented as of this encounter Visit Diagnoses Not on filedocumented in this encounter Additional Health Concerns Assessment Noted Time PHQ-9 Depression Total Score: 10 10/06/2021 5:00 PM CD T documented as of this encounter Care Teams Chaser Tar Relationship Specialty Start Date End Date Ana Red P.A.-C. PCP - General Internal Medicine 12/01/[address] [place] [address] [place] [address] [phone] [facility] 08/25/21 Ervin Schroeder MD Referring Provider Family Medicine 03/24/[address] [place] [address] ADI Mejía [phone] documented as of this encounter
--- OUTSIDE RECORDS SUMMARY | 2022-02-14 21:59 | XMS_ITS | Encounter Summary ---
:1990 Author Organization [facility] Address [address] [place] [address] Care Team Providers Name Role Phone Ana Red P.A.-C. Primary Care Provider [phone] Encounter Details Date Type Department Care Team Description 01/30/2022 Orders Only RST HIM Gracia Sara R, [address] [place] [phone] [place] [phone] (Wo rk) Social History Tobacco Use Types [...] you attend evangelical or Patient refused 2021 christian services? 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 [address] [place] [phone] Virtual Visit Transplant Matthew Jerome 2 YTyrell M.D. [address] [place] [phone] Office Visit Gastroenterology and [place] Matthew 2 Hepatology Tyrell Rodriguez M.D. [address] [place] [phone] Appointment Radiology [place] Matthew 2 YTyrell M.D. [address] [place] [phone] Hospital Gastroenterology and [facility] Cirrhos is Alcoholic (HCC) 2 Encounter Hepatology Tyrell Rodriguez M.D. [address] [place] [phone] Anesthesia Event Gastroenterology and Rl, 2 Hepatology Ervin Burgos M.D. [address] [place] [phone] Surgery Gastroenterology and [facility] ESOPHAG OGASTRODUODENOSCOPY 2 Hepatology Tyrell Rodriguez M.D. [address] [place] [phone] Scheduled Procedures Name Priority Associated Diagnoses Date/Time ESOPHAGOGASTRODUODENOSCOPY Cirrhosis Alc oholic (HCC) 03/20/2022 8:45 AM TIG WELDER Hypertension Portal (HCC) documented as of this encounter Visit Diagnoses Not on filedocumented in this encounter Additional Health Concerns Assessment Noted Time PHQ-9 Depression Total Score: 10 10/06/2021 5:00 PM CD T documented as of this encounter Care Teams First Sampler Relationship Specialty Start Date End Date Ana Red P.A.-C. PCP - General Internal Medicine 12/01/[address] [place] [address] Sadia BAYADI WRIGHT [phone] [facility]21 Ervin Schroeder MD Referring Provider Family Medicine 03/24/[address] [place] [phone] documented as of this encounter
--- OUTSIDE RECORDS SUMMARY | 2022-02-14 21:59 | XMS_ITS | Encounter Summary ---
:1990 Author Organization [facility] Address [address] [place] [address] Care Team Providers Name Role Phone Ana Red P.A.-C. 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 [address] [place] [phone] Appointment Gastroenterology and [place], 2 Hepatology Yue Burciaga M.D. [address] [place] [phone] Virtual Visit Transplant Matthew Jerome 2, M.B.B.S., M.D. [address] [place] [address] [phone] Office Visit Gastroenterology and Matthew Jerome 2 Hepatology Tyrell Rodriguez M.D. [address] [place] [phone] Appointment Radiology Queenie Matthew 2 YTyrell, Lilian [address] [place] [address] [phone] Hospital Gastroenterology and [facility] Matthew Cirrhos is Alcoholic (HCC) 2 Encounter Hepatology Tyrell Rodriguez M.D. [address] [place] [phone] Anesthesia Event Gastroenterology and [facility], 2 Hepatology Ervin Burgos M.D. [address] [place] [address] [phone] Surgery Gastroenterology and [facility] Matthew ESOPHAG OGASTRODUODENOSCOPY 2 Hepatology Tyrell Rodriguez M.D. 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 PCP - General Internal Medicine 12/01/[address] [place], [place] [id number] Montoya [phone] [facility] [place] [facility] 08/25/21 Ervin Schroeder MD Referring Provider Family Medicine 03/24/[address] [place] [address] ADI Mejía [phone] documented as of this encounter
--- OUTSIDE RECORDS SUMMARY | 2022-02-14 21:59 | XMS_ITS | Encounter Summary ---
:1990 Author Organization [facility] Address [address] [place] [address] Care Team Providers Name Role Phone Ana Red P.A.-C. Primary Care Provider Reason for Visit Reason Comments Altered Mental Status Auth/Cert Specialty Diagnoses / Procedures Referred By Contact Refer red To Contact Diagnoses Pain Flank Procedures OBS Referral ID Status Reason Start Date Expiration Date Visits Requ ested Visits Authorized [id number] 1 1 Encounter Details Date Type Department Care Team Description 02/01/2022 - Emergency [facility] Paty Goldberg P.A.-C. [address] [place] [phone] Pain Flank (Primary Dx); 02/03/2022 [facility] Ott David M, M.D. [address] [place] [phone] Ascites Chronic; [facility], Vj Rodrigez M.B., Ch.B. [address] [place] [phone] Thrombocytopenia (HCC); [facility], Cirrhosi s Alcoholic (HCC); Third Floor Hypertension Portal (HCC); [address] [facility] [place] [phone] Social History Tobacco Use Types Packs/Day Years [...] you attend latter-day or Patient refused 2021 nondenominational services? Do [...] at Date Recorded Female 04/12/2021 7:39 PM DIVISION [employer] documented as of this encounter Last Filed [...] CDT DISCHARGE SUMMARY BRIEF OVERVIEW Hospital: [facility] Discharge Provider: Vj Rodrigez M.B. Primary Team: [facility] Medicine 3 ([facility]) Primary Care Providers: Ana Red P.A.-C. (General) [address] [place] [phone] Primary Care Provider Primary Care Provider Other [...] P.A.-C. Community Internal Medicine 02/05/2022 3:15 PM [facility] 02 01 Radiology 02/10/2022 3:00 PM TXP PSYCHIATRY 01 [facility] Transplant 02/12/2022 9:20 AM LAB BLOOD [facility] Laboratory Medicine 02/12/2022 9:30 AM LAB URINE CONTAINER [facility] Laboratory Medicine 02/12/2022 11:00 AM TXP COUNSELOR 01 [facility] Transplant 02/18/2022 3:15 PM [facility] 02 01 Radiology 03/02/2022 10:00 AM RM 450 [facility] Gastroenterology and Hepatology 03/04/2022 9:30 AM Matthew Jerome M.B.B.S., M.D. Gastroenterology and Hepatology 03/05/2022 3:15 PM [place] [address] Radiology For appointment details refer to your [...] documented in this encounter Discharge Instructions Discharge InstructionsHilda Sun - 02/02/2022 7:24 AM CDT You were discharged from the [facility] Medicine 3 ([facility]) Service. Please identify this service name [...] multivitamin per CPA. Evon Rodriguez Pharm.D., R.Ph. [phone] Sara Gracia M.D. - 02/02/2022 6:04 AM CDT T Medicine 3 ([facility]) PROGRESS NOTE SUBJECTIVE Ms. Carias is [...] / PLAN Ms. Carias is hospitalized on [facility] Medicine 3 ([facility]) for evaluation and management of Hepatic [...] (not met): Pain control Plan discussed with [facility] Medicine 3 ([facility]) Burner Technician, JEAN CARLOS Brandon [facility] who was present during judd portions of the evaluation today. Please page the [facility] Medicine 3 ([facility]) service pager at [phone] with any questions. documented in this encounter [...] (Acute Kidney Injury) (HCC) Kishore Sotelo., Ch.B., [facility], FAC, FACP Burner Technician Hospitalist Yue Silver M.D. - 02/01/2022 5:13 PM CDT [facility] Medicine 3 ([facility]) Admission Note SUBJECTIVE CHIEF COMPLAINT Ms. [...] She also said she was going to [facility] to meet her doctor. She is [...] by refractory ascites, who is hospitalized on [place] [id number] ([facility]) for evaluation and management of Pain [...] Information Referral Source: Nurse Referral Name: Karyn Granados Alicjaluzma Referral Reason: Discharge Planning Previous assessment done on: 12/28/21 Previous assessment done by: Harlan Monterroso Primary Language: Martiniquais Bingo Usher Services Used: No Person(s) present during interview: [...] System: Boyfriend Lobito Finance/Insurance Primary insurance: [facility] CARE RESTRICTED PLAN Secondary insurance: N/A Does [...] Communication: Can write, Talks, Understands speaking, Understands Martiniquais, Reads Shopping: Needs assistance Transportation: Support from family Medication Management: Dependent Housekeeping: Dependent Meal Prep: Dependent Managing Finances: Independent Assistive Devices: Cane, Cellphone, Commode, Medication box, Handrails for stairs, Walker - front wheeled Services/Resources: Home health Agency Name: [facility] Services Provided: Medication Baseline Services/Resources Primary care clinic and provider: Ana Red P.A.-C. Services/Resources: Home health Additional Resources: Anticipated Needs Functional Status: None Assistive Devices: Emergency call system, Walker - four wheeled, Tub/shower chair/bench Agency Name: [facility] Services Provided: Medication Anticipated Modifications to the Patient's Home: None Transportation Needs: Support from family Does the patient need discharge transport arranged?: No Phone Number for Ride/Caregiver: [phone] Gonzalo Anticipated Discharge Destination: Home or Self Care ASSESSMENT / PLAN Assessment: The certified alcohol and drug counselor met with Catia Carias to discuss her current hospitalization and home goingneeds. The patient was unaccompanied. The patient was a reliable historian. The role of certified alcohol and drug counselor was reviewed. The patient reviewed her prior [...] Lobito with some assistance from the patient. certified alcohol and drug counselor discussed the patient's potential needs at dismissal based on their home setting, previous needs and responsibilities, homebound status, and relevant assessments with the patient. The patient will be safe and supported to return home with jarethnaveen Lobito . when medically ready. Support will be provided by Johnsonagnieszkanaveen Lobito . The patient demonstrated understanding when discussing her home going plans and anticipated needs. Home Health Reconnect was completed with [facility] Nurse Misbah Crook. At this time, the care team has not identified any skilled post-hospital discharge care needs that require the assistance of the Care Management Team. After reviewing the patient's chart and meeting with the patient, the certified alcohol and drug counselor deemed the LACE+/readmission questions were not necessary. [...] Transportation upon dismissal will be provided by family--Boyfriennaveen Robin . certified alcohol and drug counselor recommended a shower seat. certified alcohol and drug counselor provided information regarding the dismissal process. certified alcohol and drug counselor placed or requested the following hospital-based consult orders and/or referrals: None. certified alcohol and drug counselor will continue to assess for homegoing needs with the interdisciplinary team. certified alcohol and drug counselor encouraged the patient to reach out with any questions/concerns. Care Management will continue to follow. Signed by: Destiny Aden, M.H.ASuma, RGabby 02/02/2022 documented in this encounter Nursing [...] establishingcare regarding her potential future transplant through [facility]. These concerns were brought up to her [...] COMFORT LEVEL OR BASELINE Outcome: Progressing Note: Chritselle had intermittent uncontrolled pain. Problem: DISCHARGE PLANNING [...] condition on 02/03 with outpatient follow-up with herver transplant team on 02/12 and her PCP on 02/05 documented in this encounter Plan of Treatment Upcoming Encounters Date Type Specialty Care Team Description Telemedicine Transplant 2 Appointment Radiology Matthew Jerome 2 Tyrell Rodriguez M.D. [address] [place] [phone] Appointment Gastroenterology and Adrianne, 2 Hepatology Yue Burciaga M.D. [address] [place] [phone] Virtual Visit Transplant Matthew Jerome 2 Tyrell Rodriguez M.D. [address] [place] [phone] Office Visit Gastroenterology and Queenie Matthew 2 Hepatology Tyrell Rodriguez M.D. [address] [place] [phone] Appointment Radiology Matthew Jerome 2 YTyrell M.D. [address] [place] [phone] Hospital Gastroenterology and [facility] Cirrhos is Alcoholic (HCC) 2 Encounter Hepatology Tyrell Rodriguez M.D. [address] [place] [phone] Anesthesia Event Gastroenterology and Rl, 2 Hepatology Ervin Burgos M.D. [address] [place] [phone] Surgery Gastroenterology and [facility] ESOPHAG OGASTRODUODENOSCOPY 2 Hepatology Tyrell Rodriguez M.D. [address] [place] [phone] Scheduled Orders Name Type Priority Associated Diagnoses Order S chedule Bacterial Culture, Microbiology STAT STAT for 1 Occurrences Aerobic + Susc, starting 06/2021 Urine until 2 Gram Stain Microbiology STAT STAT for 1 Occu rrences starting 2021 until 2 Scheduled Procedures Name Priority Associated Diagnoses Date/Time ESOPHAGOGASTRODUODENOSCOPY Cirrhosis Alc oholic (HCC) 03/20/2022 8:45 AM [employer] Hypertension Portal (HCC) documented as of [...] Impressions 02/02/2022 9:53 AM CDT Ultrasound-guided paracentesis. POWERTRAIN DESIGN ENGINEER Narrative 02/02/2022 9:53 AM CDT EXAM: US [...] met. POST-PROCEDURE DIAGNOSIS: Ascites. IMPRESSION: Ultrasound-guided paracentesis. POWERTRAIN DESIGN ENGINEER Yue Silver M.D. IMG US PROCEDURES Gram Stain (02/02/2022 8:54 AM CDT) [facility] Method Time Signature Gram Stain No [...] Code Phon e Number [facility] - [address] [place], [place] [address] [facility] [place] [address] Laboratories-[facility] [address] Cell Count and Differential, Body Fluid (02/02/2022 8:54 AM CDT) [facility] Method Time Signature Fluid Type Peritoneal- 02/02/2022 [...] Its performance characteri stics were determined by [facility] [...] Code Phon e Number [facility] - 200 [place], [place] [address] [facility] [place] [address] [address] CK (Creatine Kinase) (02/02/2022 6:14 AM CDT) P athologist Signature Creatine Kinase 29 26 - 192 02/02/2022 DTL (CK), S U/L 7:44 AM CDT Specimen Anatomical Collection Method Collection Time Receive d Time (Source) Location / / Volume Laterality Blood (Blood, 02/02/2022 6:14 AM 02/03/20 22 7:21 Venous) CDT AM CDT Darrick Santillan LAB BLOOD ADD-ON Performing Organization Address City/[facility]/ZIP Code Phon e Number [facility] - [address] [place], [place] [address] [facility] [place] [address] [address] (ABNORMAL) Prothrombin Time (PT) (02/02/2022 6:14 [...] 22 7:00 Venous) CDT AM CDT Darrick Santillan LAB BLOOD ADD-ON Performing Organization Address City/State/ZIP Code Phon e Number [facility] - [address] [place], [place] [address] [facility] [place] [address] [facility] [address] [facility] (ABNORMAL) CBC with Differential, Blood (02/02/2022 6:14 AM CDT) [facility] Method Time Signature Hemoglobin 7.3 (L) [...] M.D. LAB BLOOD ADD-ON Performing Organization Address City/[facility] Phon e Number [facility] - [address] (ABNORMAL) Basic Metabolic Panel (02/02/2022 6:14 [...] M.D. LAB BLOOD ADD-ON Performing Organization Address City/State/[facility] Code Phon e Number [facility] - [address] [place], [place] [address] [facility] [place] [address] Abdomen Pelvis with IV Contrast [...] Paty Goldberg P.A.-C. IMG CT PROCEDURES CT Chest Angiogram and Pulmonary [...] Dipstick, POCT, Urine (02/01/2022 1:42 PM CDT) [facility] Method Time Signature Glucose, 100 (A) Negative 02/01/2022 PCED POCT, U mg/dL 1:44 PM CDT Ketone, POCT, Trace (A) Negative 02/01/2022 PCED U mg/dL 1:44 PM CDT Specific 1.020 1.005 - 02/01/2022 PCED Abbott, 1.030 1:44 PM CDT POCT, U Blood, [...] City/State/ZIP Code Phon e Number POC RST [facility] [address] [place] [address] OUTPATIENT LABS PCED [facility] Laboratories - [place], [place] [id number] [place] [address] (ABNORMAL) Dipstick, Urine (02/01/2022 1:37 PM CDT) [facility] Method Time Signature Hemoglobin, Negative Negative 02/01/2022 [...] P.A.-C. LAB URINE ORDERABLES Performing Organization Address City/[facility]/ZIP Code Phon e Number [facility] - [address] [place], [place] [address] [facility] [place] [address] Osmolality, Urine (02/01/2022 1:37 PM CDT) P athologist Signature Osmolality, U 548 150 - 1150 02/01/2022 DTL mOsm/kg 8:41 PM CDT Specimen Anatomical Collection Method Collection Time Receive d Time (Source) Location / / Volume Laterality Urine 02/01/2022 1:37 PM 2 2:09 CDT PM CDT Paty Goldberg P.A.-C. LAB URINE ORDERABLES Performing Organization Address City/[facility]/ZIP Code Phon e Number [facility] - [address] [place], [place] [address] [place] [address] pH, Random, Urine (02/01/2022 1:37 PM [...] Code Phon e Number [facility] - [address] [place], [place] [address] [place] [address] [place] [address] [facility] [address] [facility] (ABNORMAL) Microscopic Manual (02/01/2022 1:37 PM CDT) [...] Code Phon e Number [facility] - [address] [place], [place] [address] [facility] [place] [address] [facility] [address] [facility] (ABNORMAL) Gram Stain, Urine (02/01/2022 1:37 PM [...] City/State/ZIP Code Phon e Number [facility] - [address] [place], [place] [address] [facility] [place] [address] [facility] [address] [facility] (ABNORMAL) Urinalysis with Microscopic: Urine, Midstream (02/01/2022 [...] P.A.-C. LAB URINE ORDERABLES Performing Organization Address City/[facility] Phon e Number [facility] - [address] [place] [address] [address] [facility] Lactate (02/01/2022 1:32 PM CDT) P athologist Signature Lactate, P 1.6 0.5 - 2.2 02/01/2022 STMA mmol/L 1:50 PM CDT Specimen Anatomical Collection Method Collection Time Receive d Time (Source) Location / / Volume Laterality Blood (Blood, 02/01/2022 1:32 PM 02/02/20 1:37 Venous) CDT PM CDT Paty Goldberg P.A.-C. LAB BLOOD NON ADD-ON Performing Organization Address City/State/[facility] Phon e Number [facility] - [address] [place], [place] [address] [facility] STMA [place], [place] [address] [place] [address] DX Chest AP or PA [...] Blood # 2 (02/01/2022 10:47 AM CDT) [facility] gist Method Time Signature Bacteria/Adriana No [...] Code Phon e Number [facility] - [address] [place], [place] [address] [place] [address] Lactate, POCT (02/01/2022 10:36 AM CDT) Analysis Performed At Patho logist Time Signature Lactate, POCT Collected DEFAULT 02/01/2022 SMLX 10:36 AM CDT Specimen Anatomical Collection Method Collection Time Receive d Time (Source) Location / / Volume Laterality Blood (Blood, 02/01/2022 10:36 02/01/2022 Venous) AM CDT 10:36 AM CDT Paty Goldberg P.A.-C. LAB POCT ORDERABLES - DEVICE Performing Organization Address [facility] Phon e Number [facility] - [address] [place] [address] 05 [place] [address] Venous Blood Gas and Electrolytes CG8+, [...] POCT ORDERABLES - DEVICE Performing Organization Address City/[facility]/ZIP Code Phon e Number [facility] - [address] [place] [address] 05 [place] [address] Bacteria / Raudel Culture, Blood #1 [...] - GENERAL O RDERABLES Performing Organization Address City/[facility] Phon e Number [facility] - 200 [place] [address] [address] (ABNORMAL) Hepatic Function Panel (02/01/2022 10:34 AM CDT) [facility] Method Time Signature Bilirubin, Total, S 10.7 [...] LAB BLOOD ADD-ON Performing Organization Address City/State/[facility] Phon e Number [facility] - [address] (ABNORMAL) CBC with Differential, Blood (02/01/2022 10:34 AM CDT) [facility] Method Time Signature Hemoglobin 7.9 (L) 11.6 [...] Code Phon e Number [facility] - [address] [place], [place] [address] [facility] [place] [address] [facility] [address] (ABNORMAL) Basic Metabolic Panel [...] Code Phon e Number [facility] - [address] [place], [place] [address] [place] [address] [facility] [address] (ABNORMAL) Ammonia (02/01/2022 10:34 AM CDT) athologist Signature Ammonia, P 68 (H) <=30 02/01/2022 DTL mcmol/L 11:32 AM CDT Specimen Anatomical Collection Method Collection Time Receive d Time (Source) Location / / Volume Laterality Blood (Blood, 02/01/2022 10:34 02/01/2022 Venous) AM CDT 10:59 AM CDT Paty Goldberg P.A.-C. LAB BLOOD NON ADD-ON Performing Organization Address City/[facility]/ZIP [facility] Phon e Number [facility] - 200 [place], [place] [address] [facility] [place] [address] [facility] [address] [facility] Lactate, POCT (02/01/2022 10:31 AM CDT) [...] DEVICE Performing Organization Address [facility] Phon e Number POC [facility] [address] [place] [address] [place] [address] [place] [facility] [address] [facility] (ABNORMAL) Venous Blood Gas and Electrolytes [...] City/State/ZIP Code Phon e Number POC RST [facility] IN[facility]IENT [address] [place], [place] [address] LABS PCSM [facility] [place] [address] [place] [facility] [address] ECG 12 Lead (02/01/2022 10:22 AM CDT) P athologist Signature Ventricular Rate 91 BPM MUSE ECG/Min NV Interval 152 ms MUSE QRSD Interval 86 ms MUSE QT Interval 398 ms MUSE QTC Interval 489 ms MUSE P [place] -3 degrees MUSE R [place] 16 degrees MUSE T Wave [place] 5 degrees MUSE Specimen Anatomical Collection Method [...] Test Pain Low Back Vertebrogenic Anemia Macrocytic Hypertension Portal (HCC) Alcoholic Cirrhosis Of Liver With Ascite s (HCC) Chronic Pain Syndrome Pancreatitis Chronic (HCC) Attention Deficit Hyperactive Disorder 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 Hepatic Encephalopathy Without Coma (HCC ) Thrombocytopenia (HCC) Chronic Kidney Disease (CKD), Stage 3b G [...] Administer the 25% solution at 100 mL/hr aqfquukskvwer-chxckpdlws-rwqvpoar in Lipoderm Given 02/03/2022 8 :54 AM [...] intravenous, Once in imaging, contrast, Starting on [place] 02/01/22 at 1425, For 1 dose, Imaging Protocol Orders, Dose per Radiant Medication Guidelines lactulose solution 10 g (CHRONULAC) Given 02/03/2022 12:53 PM CDT 10 g 10 g, oral, 4 times daily, First dose (after last modification) on [place] 02/01/22 at 2100 Given 02/03/2022 8:54 AM CDT [...] Given 02/02/2022 6:25 AM CDT 400 mg ygvldmfcxlzh-oxea-RW-Ca-minerals 400 mcg Given 02/03/2022 8:55 A M [...] human 25 % injection 25 g (COMPLETED) 1148 (New Bag - Provider: Nabila Traore R.N.) 25 g, intravenous, Once, On Wed02/02/22 at 1100, For 1 dose, If no infusion rate specified: Administer the 25% solution at 100 mL/hr sqrvbgokdlico-rlqgbbcngf-bavektdt in Lipoderm 2%-5%-5% cream 1 g 2039 [...] D3) tablet/capsule ciprofloxacin tablet 500 mg (CIPRO) 24 (Given - Provider: Harish Massey R.N.) 0855 [...] Patient/family refused)171 (Not Given - Provider: Nabila E Eugenie, R.N. - Reason: Patient/family refused) 0858 (Given [...] refused) 0625 (Given - Provider: Harish Massey RGabby)1345 (Not Given - Provider: Nabila Traore R.N. - Reason: Other - Comment: paracentesis this am)2057 (Given - Provider: Criselda Marley R.N.) 0525 (Not Given - Provider: Criselda mejia RGabby - Reason: Patient/family refused)1324 (Not Given - [...] dinner, First dose on Wed02/02/22 at 0700 zloihiyjnzst-whlh-SQ-Ca-minerals 400 mcg (folic acid) tablet 1 tablet [...] spironolactone tablet 50 mg (ALDACTONE) (COMPLETED) 19 (Given - Provider: Elena Worthington R.N.) 50 mg, oral, Once, On Wed02/01/22 at 1830, For 1 dose thiamine tablet 100 mg (VITAMIN B1) 1025 (Given - Provider: Nabila Traore R.N.) 0856 (Given - Provider: Suleman Rivas R.N.) 100 mg, oral, Daily, First dose on Wed02/02/22 at 0900 traZODone tablet 50 mg (DESYREL) 2215 (Given - Provider: Tomi Worthington RGabby) 2054 (Given - Provider: Andrew AmandaNSuma) 50 mg, oral, Daily at bedtime, First dose on Wed02/01/22 at 2100 vitamin A capsule 3,000 mcg 0900 (Given - Provid er: Nabila Traore R.N.) 3,000 mcg, oral, 3 times weekly (Once pe r day on Wed), First dose on Wed02/02/22 at 0900, Vitamin A (retinol): Units x 0.3 = mcg; 10,000 Units = 3,000 mcg Vitamin A (Supplemental Beta-carotene): Units x 0.3 = mcg Vitamin A (Dietary Beta-carotene): Units x 0. 05 = mcg zinc sulfate capsule 220 mg (ZINCATE) 10 (Given - Provider: Nabila Traore R.N.) 0855 (Given - Provider: Suleman Rivas RSumaNSuma) 220 mg, oral, Daily with breakfast, [...] R.N.) 0748 (Given - Provider: Nabila Traore RGabby) 5 mg, oral, Daily PRN, muscle [...] (SUBLIMAZE) (COMPLETED) 1125 (Given - Provider: Andrew RoachNSuma)1251 (Given - Provider: Ciara Morgan R.N.)1335 (Given - Provider: Ciara Morgan R.N.) 50 [...] (COMPAZINE) 1357 (Given - Provider: Nabila Traore R.N.) 0907 (Given - Provider: Suleman Rivas R.N.) 5 mg, oral, Every 6 hours PRN, nausea, v omiting, Starting on 02/02/22 at 1255 documented in this encounter Additional Health Concerns Assessment Noted Time PHQ-9 Depression Total Score: 10 10/06/2021 5:00 PM CD T documented as of this encounter Care Teams Quartz Cutter Relationship Specialty Start Date End Date Ana Red P.A.-C. PCP - General Internal Medicine 12/01/[address] [place] [address] ADI Chua [phone] [facility] [place] [facility] 08/25/21 Ervin Schroeder MD Referring Provider Family Medicine 03/24/[address] [place], [place] [address] ADI Mejía [phone] documented as of this encounter
--- OUTSIDE RECORDS SUMMARY | 2022-02-14 21:59 | XMS_ITS | Encounter Summary ---
:1990 Author Organization [facility] Address [address] [place] [address] Care Team Providers Name Role Phone Ana Red P.A.-C. Primary Care Provider [phone] Reason for Visit Reason Comments Post Hospital Follow-up Encounter Details Date Type Department Care Team Description 01/30/2022 Clinical Department of [facility] meagan Communication [facility] A, R.N. Follow-up Medicine in [address] [place] [phone] [place] [address] [place], [place] (Work) [phone] Social History Tobacco Use [...] you attend episcopalian or Patient refused 2021 lutheran services? 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 [address] [place] [phone] Appointment Gastroenterology and Adrianne, 2 Hepatology Yue Burciaga M.D. [address] [place] [address] Virtual Visit Transplant LuisMatthew abdul 2 Vik RodriguezBLilian Bedolla [address] [place] [phone] Office Visit Gastroenterology and [place] 2 Hepatology Tyrell Rodriguez M.D. [address] [place] [phone] Appointment Radiology Queenie Matthew 2 Joshua RodriguezBSumaBLilian Bedolla [address] [place] [phone] Hospital Gastroenterology and Queenie Matthew Cirrhos is Alcoholic (HCC) 2 Encounter Hepatology Joshua RodriguezBSumaBLilian Bedolla [address] [place] [phone] Anesthesia Event Gastroenterology and Rl, 2 Hepatology Ervin Burgos M.D. [address] [place] [phone] Surgery Gastroenterology and Matthew Jerome ESOPHAG OGASTRODUODENOSCOPY 2 Hepatology Joshua RodriguezB.BLilian Bedolla [address] [place] [phone] Scheduled Procedures Name Priority Associated Diagnoses Date/Time ESOPHAGOGASTRODUODENOSCOPY Cirrhosis Alc oholic (HCC) 03/20/2022 8:45 AM PARTNERSHIP DEVELOPMENT MANAGER Hypertension Portal (HCC) documented as of this encounter Procedures Procedure Name Priority Date/Time Associated Diagnosis Comme nts EXT THINPREP SCREEN Routine 02/28/2014 Results for this procedure are i n the results section . documented in this encounter Results EXT ThinPrep Screen (02/28/2014) Patholo gist Method Time Signature EXT ThinPrep Normal - Normal - See Screen See Scanned Scanned Report for Report for Details Details, HIMS - Report Received and Scanned Comment: See Care Everywhere for Results Specimen (Source) Anatomical Location Collection Method / Collectio n Time Received Time / Laterality Volume Thin Prep Vial 02/28/2014 (Cervix/Endocervi x) Impressions Jinny Christensen - 03/05/2014 9:07 AM PARTNERSHIP DEVELOPMENT MANAGER Resulting Agency Specimen Collected: 02/28/14 14:36 Last Resulted: 03/05/14 09:07 [facility] Result Received: 11/29/18 11:58 Historical Provider LAB PAP PATHDX ORDERABLES documented in this encounter Visit Diagnoses Not on filedocumented in this encounter Additional Health Concerns Assessment Noted Time PHQ-9 Depression Total Score: 10 10/06/2021 5:00 PM CD T documented as of this encounter Care Teams Coremaker Pipe Relationship Specialty Start Date End Date Ana Red P.A.-C. PCP - General Internal Medicine 12/01/[address] [place] [phone] [facility] [place] lab 08/25/21 Ervin Schroeder MD Referring Provider Family Medicine 03/24/[address] [place] [address] documented as of this encounter
--- OUTSIDE RECORDS SUMMARY | 2022-02-14 21:59 | XMS_ITS | Encounter Summary ---
:1990 Author Organization [facility] Address [address] [place] [address] Care Team Providers Name Role Phone Ana Red P.A.-C. Primary Care Provider [phone] Reason for Visit Reason Comments Phone Contact Encounter Details Date Type Department Care Team Description 01/29/2022 Clinical Communication Adry Orourke Phone Contact Center for [address] [place] [address] Transplantation [place] [phone] [place], [place] [phone] [place] [address] (Work) [place] [phone] Social History Tobacco Use Types Packs/Day [...] you attend restorationism or Patient refused 2021 yarsanism services? Do you belong to any clubs or No 02/10/2022 organizations such as restorationism groups, unions, [employer] or athletic groups, or school groups? [...] at Date Recorded Female 04/12/2021 7:39 PM PNP documented as of this encounter Miscellaneous Notes Telephone Encounter - Rachell Mcallister - 01/30/2022 1:28 PM CDT Tried contacting patient. Call log added. Telephone Encounter - Jo Ann Blakely - 01/29/2022 11:57 AM CDT Alisha from [place] reaching out to the transplant team to assist pt in scheduling appts. Pt is also wanting to transfer her care from [place] to [place]. Please reach out to the pt at [phone]. Thanks, documented in this encounter Plan of Treatment Upcoming Encounters Date Type Specialty Care Team Description Telemedicine Transplant 2 Appointment Radiology Matthew Jerome 2 YTyrell M.D. [address] [place] [phone] Appointment Gastroenterology demian Silver 2 Hepatology Yue Burciaga M.D. [address] [place] [phone] Virtual Visit Transplant Matthew Jerome 2 YTyrell M.D. [address] [place] [phone] Office Visit Gastroenterology and Matthew Jerome 2 Hepatology Tyrell Rodriguez M.D. [address] [place] [phone] Appointment Radiology Matthew Jerome 2 YTyrell M.D. [address] [place] [phone] Hospital Gastroenterology and Matthew Jerome Cirrhos is Alcoholic (HCC) 2 Encounter Hepatology Vik RodriguezBLilian Bedolla [address] [place] [phone] Anesthesia Event Gastroenterology and Rl, [place] Hepatology Ervin Burgos M.D. [address] [place] [phone] Surgery Gastroenterology and Matthew Jerome ESOPHAG OGASTRODUODENOSCOPY 2 Hepatology YTyrell M.D. [address] [place] [address] Scheduled Procedures Name Priority Associated Diagnoses Date/Time ESOPHAGOGASTRODUODENOSCOPY Cirrhosis Alc oholic (HCC) 03/20/2022 8:45 AM PNP Hypertension Portal (HCC) documented as of this encounter Visit Diagnoses Not on filedocumented in this encounter Additional Health Concerns Assessment Noted Time PHQ-9 Depression Total Score: 10 10/06/2021 5:00 PM CD T documented as of this encounter Care Teams Horse Farm Manager Relationship Specialty Start Date End Date Ana Red P.A.-C. PCP - General Internal Medicine 12/01/[address] [place] [phone] [facility]- [place] lab 08/25/21 Ervin Schroeder MD Referring Provider Family Medicine 03/24/[address] [place] [address] documented as of this encounter
--- OUTSIDE RECORDS SUMMARY | 2022-02-14 21:59 | XMS_ITS | Encounter Summary ---
:1990 Author Organization [facility] Address [address] [place] [address] Care Team Providers Name Role Phone Ana Red P.A.-C. Primary Care Provider [phone] Reason for Visit Reason Comments Post Hospital Follow-up [facility] Encounter Details Date Type Department Care Team Description 02/04/2022 Clinical Communication Department of [facility] Internal Myrtle Govea Follow-up ([facility] in 2199) [address] [address] [facility] [place] [phone] (Work) [phone] Social History Tobacco Use Types Packs/Day Years [...] you attend denominational or Patient refused 2021 scientology services? 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 - 02/04/2022 3:36 PM CDT [...] Medical Care Coordination Program and needs the [facility] call to be completed. Patient was dismissed from the [facility] on 02/03/22 at 1808. [facility] Exclusion Criteria: Liver Transplant recipient (actively following with transplant team pre-transplant) documented in this encounter Plan of Treatment Upcoming Encounters Date Type Specialty Care Team Description Telemedicine Transplant 2 Appointment Radiology Matthew Jerome 2 YTyrell, Lilian [address] [place] [phone] Appointment Gastroenterology and Adrianne, 2 Hepatology Yue Burciaga M.D. [address] [place] [address] Virtual Visit Transplant Matthew Jerome 2 YTyrell M.D. [address] [place] [phone] Office Visit Gastroenterology and Matthew Jerome 2 Hepatology Tyrell Rodriguez M.D. [address] [place] [phone] Appointment Radiology [facility] 2 YTyrell M.D. [address] [place] [phone] Hospital Gastroenterology and [facility] Cirrhos is Alcoholic (HCC) 2 Encounter Hepatology Tyrell Rodriguez M.D. [address] [place] [phone] Anesthesia Event Gastroenterology and [facility] 2 Hepatology Ervin Burgos M.D. [address] [place] [phone] Surgery Gastroenterology and [facility] ESOPHAG OGASTRODUODENOSCOPY 2 Hepatology Tyrell Rodriguez, Lilian [address] [place] [phone] Scheduled Procedures Name Priority Associated Diagnoses Date/Time ESOPHAGOGASTRODUODENOSCOPY Cirrhosis Alc oholic (HCC) 03/20/2022 8:45 AM SENIOR ADMINISTRATIVE ASSISTANT Hypertension Portal (HCC) documented as of this encounter Visit Diagnoses Not on filedocumented in this encounter Additional Health Concerns Assessment Noted Time PHQ-9 Depression Total Score: 10 10/06/2021 5:00 PM CD T documented as of this encounter Care Teams Elevator Service Technician Relationship Specialty Start Date End Date Ana Red P.A.-C. PCP - General Internal Medicine 12/01/[address] [place] [address] Sadia PANIAGUAADI [phone] [facility]- [facility] 08/25/21 Ervin Schroeder MD Referring Provider Family Medicine 03/24/[address] [place] [address] documented as of this encounter
--- OUTSIDE RECORDS SUMMARY | 2022-02-14 21:59 | XMS_ITS | Encounter Summary ---
:1990 Author Organization [facility] Address [address] [place] [address] Care Team Providers Name Role Phone Ana Red P.A.-C. Primary Care Provider [phone] Reason for Referral Outpatient (Routine) - Pending Review Specialty Diagnoses / Procedures Referred By Contact Refer red To Contact Diagnoses Ascites Chronic Matthew Jerome M.B.B.SSuma, [facility] Procedures US Paracentesis with Imaging Guidance M.DSuma [address] [place] [phone] Referral ID Status Reason Start Date Expiration Date Visits V isits Requested Authorized [id number] Pending 02/08/2022 02/08/2023 1 1 Review Outpatient (Routine) - Pending Review Specialty Diagnoses / Procedures Referred By Contact Refer red To Contact Diagnoses Ascites Chronic Matthew Jerome M.B.BSumaSSuma, [facility] Procedures US Paracentesis with Imaging Guidance M.DSuma [address] [place] [address] 52 Referral ID Status Reason Start Date Expiration Date Visits V isits Requested Authorized [id number] Pending 02/08/2022 02/08/2023 1 1 Review Outpatient (Routine) - Pending Review Specialty Diagnoses / Procedures Referred By Contact Refer red To Contact Diagnoses Ascites Chronic Matthew Jerome M.B.B.S., [facility] Procedures US Paracentesis with Imaging Guidance M.DSuma [address] [place] [address] 52 Referral ID Status Reason Start Date Expiration Date Visits V isits Requested Authorized [id number] Pending 02/08/2022 02/08/2023 1 1 Review Outpatient (Routine) - Pending Review Specialty Diagnoses / Procedures Referred By Contact Refer red To Contact Diagnoses Ascites Chronic Matthew Jerome M.B.B.S., [facility] Procedures US Paracentesis with Imaging Guidance M.DSuma [address] [place] [address] 52 Referral ID Status Reason Start Date Expiration Date Visits V isits Requested Authorized [id number] Pending 02/08/2022 02/08/2023 1 1 Review Outpatient (Routine) - Pending Review Specialty Diagnoses / Procedures Referred By Contact Refer red To Contact Diagnoses Ascites Chronic Matthew Jerome M.B.B.S., [facility] Procedures US Paracentesis with Imaging Guidance M.DSuma [address] [place] [address] 52 Referral ID Status Reason Start Date Expiration Date Visits V isits Requested Authorized [id number] Pending 02/08/2022 02/08/2023 1 1 Review Encounter Details Date Type Department Care Team Description 02/03/2022 Clinical Communication Department of Matthew Jerome, Gastroenterology in Joshua Santillan [address] [phone] Social History Tobacco Use Types Packs/Day Years [...] you attend zoroastrianism or Patient refused 2021 gnosticism services? 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 - 02/08/2022 2:41 PM CDT Addended by: MATTHEW JEROME on: 02/08/2022 02:41 PM Modules accepted: Orders Addendum Note - Laura Randhawa L.PSumaNSuma - 02/06/2022 2:13 PM CDT Addended by: LAURA RANDHAWA on: 02/06/2022 02:13 PM Modules accepted: Orders Telephone Encounter - Laura Randhawa L.P.N. - 02/06/2022 1:57 PM CDT Manager Front called and discussed with the patient that Dr. Jerome felt it was appropriate for her to be seen in March 2022 since she was recently hospitalized and seen in [facility] and that he did not need to follow her the same month as she had been seen in [facility]. Manager Front explained that I am unsure why she [...] inquired if she should transfer care to [facility] if this is going to continue. Manager Front verbalized understanding of her frustration but informed [...] wants to see in March pt seeing [place] in January. Manager Front stated this to patient and she stated that nobody had called her to tell her the appointment had moved, however, Manager Front stated that our scheduling team in [place] does not change appointments without contacting the patient affected. Patient insisted she was never contacted and became very agitated. Manager Front stated that a message would be sent [...] Radiology Matthew Jerome 2 YTyrell M.D. [address] [place] [phone] Appointment Gastroenterology demian Silver 2 Hepatology Yue Burciaga M.D. [address] [place] [phone] Virtual Visit Transplant Matthew Jerome 2 YTyrell M.D. [address] [place] [phone] Office Visit Gastroenterology and Matthew Jerome 2 Hepatology Tyrell Rodriguez M.D. [address] [place] [phone] Appointment Radiology Matthew Jerome 2 YTyrell M.D. [address] [place] [phone] Hospital Gastroenterology and Matthew Jerome Cirrhos is Alcoholic (HCC) 2 Encounter Hepatology Vik RodriguezBLilian Bedolla [address] [place] [phone] Anesthesia Event Gastroenterology and Rl, [place] Hepatology Ervin Burgos M.D. [address] [place] [phone] Surgery Gastroenterology and Matthew Jerome ESOPHAG OGASTRODUODENOSCOPY 2 Hepatology YTyrell M.D. [address] [place] [address] Scheduled Orders Name Type Priority Associated Order [...] Cirrhosis Alc oholic (HCC) 03/20/2022 8:45 AM FIRST LINE SUPERVISOR Hypertension Portal (HCC) documented as of this encounter Visit Diagnoses Diagnosis Cirrhosis Alcoholic (HCC) Ascites Chronic - Primary Cirrhosis Alcoholic (HCC) Hypertension Portal (HCC) documented in this encounter Additional Health Concerns Assessment Noted Time PHQ-9 Depression Total Score: 10 10/06/2021 5:00 PM CD T documented as of this encounter Care Teams Survey Worker Relationship Specialty Start Date End Date Ana Red P.A.-C. PCP - General Internal Medicine 12/01/[address] [place] [address] [facility] [place] [address] [facility]- [place] lab 08/25/21 Ervin Schroeder MD Referring Provider Family Medicine 03/24/[address] [place] [address] [place] [id number] documented as of this encounter
--- OUTSIDE RECORDS SUMMARY | 2022-02-14 21:59 | XMS_ITS | Encounter Summary ---
:1990 Author Organization [facility] Address [address] [place] [address] Care Team Providers Name Role Phone Ana Red P.A.-C. Primary Care Provider [phone] Reason for Visit Reason Comments Post Hospital Follow-up Encounter Details Date Type Department Care Team Description 01/30/2022 Clinical Communication Department of [facility] Family Medicine, J, R.N. Follow-up [facility], in [facility] ([address] [phone] Social History Tobacco Use Types [...] you attend presybeterian or Patient refused 2021 caodaism services? Do you belong to any clubs or No 02/10/2022 organizations such as presybeterian groups, unions, fraSwifto or athletic groups, or school groups? 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 - 01/30/2022 2:25 PM CDT SUBJECTIVE [...] Radiology Matthew Jerome 2 YTyrell M.D. [address] [place] [phone] Appointment Gastroenterology and Adrianne, 2 Hepatology Yue Burciaga M.D. [address] [place] [address] [place] [phone] Virtual Visit Transplant Matthew Jerome 2 Tyrell Rodriguez, Lilian [address] [place] [phone] Office Visit Gastroenterology and Matthew Jerome 2 Hepatology Tyrell Rodriguez M.D. [address] [place] [phone] Appointment Radiology LuisMatthew abdul 2 Tyrell Rodriguez M.D. [address] [place] [phone] Hospital Gastroenterology and Matthew Jerome Cirrhos is Alcoholic (HCC) 2 Encounter Hepatology Tyrell Rodriguez, Lilian [address] [place] [phone] Anesthesia Event Gastroenterology and Rl, 2 Hepatology Ervin Burgos M.D. [address] [place] [phone] Surgery Gastroenterology and Matthew Jerome ESOPHAG OGASTRODUODENOSCOPY 2 Hepatology Tyrell Rodriguez, Lilian [address] [place] [phone] Scheduled Procedures Name Priority Associated Diagnoses Date/Time ESOPHAGOGASTRODUODENOSCOPY Cirrhosis Alc oholic (HCC) 03/20/2022 8:45 AM PEOPLESOFT HCM CONSULTANT Hypertension Portal (HCC) documented as of this encounter Visit Diagnoses Not on filedocumented in this encounter Additional Health Concerns Assessment Noted Time PHQ-9 Depression Total Score: 10 10/06/2021 5:00 PM CD T documented as of this encounter Care Teams Refinery Operator Reforming Unit Relationship Specialty Start Date End Date Ana Red P.A.-C. PCP - General Internal Medicine 12/01/[address] [place] [phone] [facility]- [place] lab 08/25/21 Ervin Schroeder MD Referring Provider Family Medicine 03/24/[address] [place] [phone] documented as of this encounter
--- OUTSIDE RECORDS SUMMARY | 2022-02-14 21:59 | XMS_ITS | Encounter Summary ---
:1990 Author Organization [facility] Address [address] [place] [address] Care Team Providers Name Role Phone Ana Red P.A.-C. Primary Care Provider [phone] Encounter Details Date Type Department Care Team Description 01/30/2022 Orders Only Division [facility] Harinder Mccormick M.D. Internal Medicine, [address] in [facility] [phone] [place] [address] [place], [place] [address] [phone] Social History Tobacco Use Types Packs/Day Years [...] you attend baptism or Patient refused 2021 episcopalian services? 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 [address] [place] [phone] Virtual Visit Transplant Matthew Jerome 2 YElizabeth.B.B.SSuma, Lilian [address] [place] [phone] Office Visit Gastroenterology and [facility] Matthew 2 Hepatology Tyrell Rodriguez M.D. [address] [place] [phone] Appointment Radiology Luischantell Matthew 2 YTyrell M.D. [address] [place] [phone] Hospital Gastroenterology and [facility] Cirrhos is Alcoholic (HCC) 2 Encounter Hepatology Tyrell Rodriguez M.D. [address] [place] [phone] Anesthesia Event Gastroenterology and Rl, 2 Hepatology Ervin Burgos M.D. [address] [place] [phone] Surgery Gastroenterology and [facility] ESOPHAG OGASTRODUODENOSCOPY 2 Hepatology Tyrell Rodriguez M.D. [address] [place] [phone] Scheduled Procedures Name Priority Associated Diagnoses Date/Time ESOPHAGOGASTRODUODENOSCOPY Cirrhosis Alc oholic (HCC) 03/20/2022 8:45 AM RAISE DRILLER Hypertension Portal (HCC) documented as of this encounter Visit Diagnoses Not on filedocumented in this encounter Additional Health Concerns Assessment Noted Time PHQ-9 Depression Total Score: 10 10/06/2021 5:00 PM CD T documented as of this encounter Care Teams Nut Grader Relationship Specialty Start Date End Date Ana Red P.A.-C. PCP - General Internal Medicine 12/01/[address] [place] [address] ADI Chua [phone] [facility]- [place] lab 08/25/21 Ervin Schroeder MD Referring Provider Family Medicine 03/24/[address] [place] [address] documented as of this encounter
--- OUTSIDE RECORDS SUMMARY | 2022-02-14 21:59 | XMS_ITS | Encounter Summary ---
:[address] [facility] Address [address] [place] [address] Care Team Providers Name Role Phone Ana Red P.A.-C. Primary Care Provider [phone] Encounter Details Date Type Department Care Team Description 01/30/2022 Clinical Communication RST Sara Gomez [address] Lilian Mendez [place], [place] [address] [place] [phone] [place] [phone] Social History Tobacco Use Types Packs/Day Years [...] you attend mormon or Patient refused 2021 presybeterian services? 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 - 01/30/2022 9:10 PM CDT Patient called [facility] Medicine 3 team overnight for severe back pain and abdominal pain. She was discharged on 01/29. This pain is usually controlled by Flexeril, which is normally prescribed by her PCP, but the patient was not able to rock picker this medication at her local pharmacy [...] Appointment Radiology Queenie Matthew 2 YTyrell M.D. [address] [place] [phone] Appointment Gastroenterology demian Silver, 2 Hepatology Yue Burciaga M.D. [address] [place] [phone] Virtual Visit Transplant Luischantell Matthew 2 YTyrell M.D. [address] [place] [phone] Office Visit Gastroenterology and Matthew Jerome 2 Hepatology Tyrell Rodriguez M.D. [address] [place] [phone] Appointment Radiology Matthew Jerome 2 YTyrell M.D. [address] [place] [phone] Hospital Gastroenterology and LuisMatthew abdul Cirrhos is Alcoholic (HCC) 2 Encounter Hepatology Tyrell Rodriguez M.D. [address] [place] [phone] Anesthesia Event Gastroenterology and Rl, 2 Hepatology Ervin Burgos M.D. [address] [place] [phone] Surgery Gastroenterology and Matthew Jerome ESOPHAG OGASTRODUODENOSCOPY 2 Hepatology Vik RodriguezBLilian Bedolla [facility] [place] [phone] Scheduled Procedures Name Priority Associated Diagnoses Date/Time ESOPHAGOGASTRODUODENOSCOPY Cirrhosis Alc oholic (HCC) 03/20/2022 8:45 AM SENIOR CARE ASSISTANT Hypertension Portal (HCC) documented as of this encounter Visit Diagnoses Not on filedocumented in this encounter Additional Health Concerns Assessment Noted Time PHQ-9 Depression Total Score: 10 10/06/2021 5:00 PM CD T documented as of this encounter Care Teams Microbiology Manager Relationship Specialty Start Date End Date Ana Red P.A.-C. PCP - General Internal Medicine 12/01/[address] [place] [phone] [facility] [place] lab 08/25/21 Ervin Schroeder MD Referring Provider Family Medicine 03/24/[address] [place] [phone] documented as of this encounter
--- OUTSIDE RECORDS SUMMARY | 2022-02-14 21:59 | XMS_ITS | Encounter Summary ---
:1990 Author Organization [facility] Address [address] [place] [address] Care Team Providers Name Role Phone Ana Red P.A.-C. Primary Care Provider [phone] Encounter Details Date Type Department Care Team Description 01/30/2022 Clinical Communication [facility] Medicine in [address] [phone] [place], [place] [phone] (Work) [phone] Social History Tobacco Use Types Packs/Day Years [...] you attend confucianism or Patient refused 2021 presybeterian services? Do [...] or the highest technical, or vocational p rofl degree you have received? 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 [address] [place] [phone] Virtual Visit Transplant Matthew Jerome 2 YJoshuaB.BLilian Bedolla [address] [place] [phone] Office Visit Gastroenterology and Queenie Matthew 2 Hepatology Joshua RodriguezB.B.Lilian Stockton [address] [place] [phone] Appointment Radiology Matthew Jerome 2 YJoshuaB.B.SLilian Moise [address] [place] [phone] Hospital Gastroenterology and Mousa, Matthew Cirrhos is Alcoholic (HCC) 2 Encounter Hepatology Tyrell Rodriguez, Lilian [address] [place] [phone] Anesthesia Event Gastroenterology and Rl, 2 Hepatology Ervin Burgos M.D. [address] [place] [phone] Surgery Gastroenterology and [place], Matthew ESOPHAG OGASTRODUODENOSCOPY 2 Hepatology Tyrell Rodriguez, Lilian [address] [place] [phone] Scheduled Procedures Name Priority Associated Diagnoses Date/Time ESOPHAGOGASTRODUODENOSCOPY Cirrhosis Alc oholic (HCC) 03/20/2022 8:45 AM CHEESE SUPERVISOR Hypertension Portal (HCC) documented as of this encounter Visit Diagnoses Not on filedocumented in this encounter Additional Health Concerns Assessment Noted Time PHQ-9 Depression Total Score: 10 10/06/2021 5:00 PM CD T documented as of this encounter Care Teams Photo Engraver Relationship Specialty Start Date End Date Ana Red P.A.-C. PCP - General Internal Medicine 12/01/[address] [place] [phone] [facility]- [place] lab 08/25/21 Ervin Schroeder MD Referring Provider Family Medicine 03/24/[address] [place] [address] [place] [address] documented as of this encounter
--- OUTSIDE RECORDS SUMMARY | 2022-02-14 21:59 | XMS_ITS | Encounter Summary ---
:1990 Author Organization [facility] Address [address] [place] [address] Care Team Providers Name Role Phone Ana Red SumaASumaC. Primary Care Provider [phone] Encounter Details Date Type Department Care Team Description 02/02/2022 Orders Only Department of [facility] Ana Red , Internal Medicine in [place], [place] [address] [facility] 300 [facility] [place] [phone] (Wo rk) Social History Tobacco [...] you attend confucianist or Patient refused 2021 latter day services? 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 [address] [place] [phone] Virtual Visit Transplant Matthew Jerome 2 YKishore.B.SSuma, Lilian [address] [place] [phone] Office Visit Gastroenterology and [facility] 2 Hepatology Tyrell Rodriguez M.D. [address] [place] [phone] Appointment Radiology [facility] Matthew 2 YTyrell M.D. [address] [place] [phone] Hospital Gastroenterology and [facility] Cirrhos is Alcoholic (HCC) 2 Encounter Hepatology Tyrell Rodriguez M.D. [address] [place] [phone] Anesthesia Event Gastroenterology and Rl, 2 Hepatology Ervin Burgos M.D. [address] [place] [phone] Surgery Gastroenterology and [facility] ESOPHAG OGASTRODUODENOSCOPY 2 Hepatology Tyrell Rodriguez M.D. 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 PCP - General Internal Medicine 12/01/[address] [place] [address] ADI Chua [phone] [facility] [place] lab 08/25/21 Ervin Schroeder MD Referring Provider Family Medicine 03/24/[address] [place] [phone] documented as of this encounter
--- OUTSIDE RECORDS SUMMARY | 2022-02-14 22:00 | XMS_ITS | Encounter Summary ---
:1990 Author Organization [facility] Address [address] [place] [address] Care Team Providers Name Role Phone Ana Red P.A.-C. Primary Care Provider [phone] Reason for Referral Outpatient (Routine) - Pending Review Specialty Diagnoses / Procedures Referred By Contact Refer red To Contact Diagnoses Cirrhosis Alcoholic (HCC) Hypertension Portal (HCC) Esophageal Varices Without Bleeding (HCC) Yue Silver M.D. [facility] Procedures EGD [address] [place] [phone] Referral ID Status Reason Start Date Expiration Date Visits V isits Requested Authorized [id number] Pending 01/28/2022 01/28/2023 1 1 Review Outpatient (Routine) - Authorized Specialty Diagnoses / Procedures Referred By Contact Refer red To Contact Diagnoses Cirrhosis Alcoholic (HCC) Ascites Hepatic Failure Unspecified Without Coma (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 (HCC) Gerda Hull M.D., M.S. [address] [place] [address] [phone] Referral ID Status Reason Start Date Expiration Date Visits V isits Requested Authorized [id number] Authorized 01/27/2022 01/27/2023 1 1 Reason for [...] Expiration Date Visits Requ ested Visits Authorized [id number] 1 1 Encounter Details Date Type Department Care Team Description 01/20/2022 - [facility] Cody Knight M.D. [address] [place] [address] [phone] Failure Renal Acute (Acute Kidney Injury ) (HCC) (Primary Dx); [facility] [address] [place] [address] [phone] Cirrhosis Alcoholic (HCC); [facility] [address] [place] [address] [phone] Alcohol Use Unspecified With Unspecified Alcohol Induced Disorder (HCC); Ervin Hamm M.D. [address] [place] [address] [phone] Ascites; Building, Fifth Hepatic Fail ure Unspecified Without Coma (HCC); Floor Hepatic Encephalopathy Witho ut Coma (HCC); [address] [place] [address] Debility [R53.81 (ICD-10-CM) ]; [place], [place] Decline Functi onal Status [R53.81 (ICD-10-CM)]; [address] Thrombocytopenia (HCC); [phone] Ascites Chronic ; Cirrhosis Alcoh olic (HCC); [...] you attend confucianist or Patient refused 2021 orthodoxy services? 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 I personally reviewed the discharge [...] AM CDT DISCHARGE SUMMARY BRIEF OVERVIEW Hospital: [facility] Discharge Provider: Ervin Mazariegos M.D. Primary Team: [facility] Medicine 3 ([facility]) Primary Care Providers: Ana Red P.A.-C. (General) [address] [place] [phone] Primary Care Provider Primary Care Provider Other [...] hospital problems. * DISCHARGE DISPOSITION [facility] [6] ACTIVE ISSUES REQUIRING FOLLOW UP Recommendations: [...] 10 Transplant 01/28/2022 2:00 PM LAB 01 [facility] Laboratory Medicine 01/28/2022 2:20 PM LAB 01 [facility] Laboratory Medicine 01/28/2022 2:45 PM Matthew Jerome M.B.B.S., M.D. Gastroenterology and Hepatology 02/05/2022 3:15 PM US RO[facility] 02 RM 01 Radiology 02/10/2022 3:00 PM TXP PSYCHIATRY 01 [facility] Transplant 02/12/2022 9:20 AM LAB BLOOD [facility] Laboratory Medicine 02/12/2022 9:30 AM LAB URINE CONTAINER [facility] Laboratory Medicine 02/12/2022 11:00 AM TXP COUNSELOR 01 [facility] Transplant 02/18/2022 3:15 PM ROCH 02 RM 01 Radiology For appointment details refer to [...] - Ask transplant clinic for a social services technician or transplant case manager - Continue weekly AA meetings. Find a sponsor - Complete steps listed in chemical dependency program binder - Ask clinic about making transplant psych appointment sooner than 3 months Kidneys - We will recheck your kidney function at your paracentesis appt on 10/6 - Take half dose of your diuretics the rest of this week, then full dose starting Wednesday PCP - Ask your PCP about hematology referral for your anemia - Recheck kidney function You were discharged from the [facility] Medicine 3 ([facility]) Service. Please identify this service name if you call with questions after hospitalization. [facility] experts agree: You should get a COVID-19 vaccine as soon as it's available to you. The vaccines that we???re recommending have been approved for safe use. [facility] will continue to coordinate with state and local governments on future vaccine distribution phases. o If your primary care provider is at [facility] and you plan to receive your vaccination at [facility], please ensure that you have activated your Patient Portal at [facility] to allow [place] to communicate to you about the scheduling process. Practice social distancing, wear a mask properly outside your home, wash your hands frequently, andfollow your state and local recommendations until the spread has stopped. The vaccine may not be recommended to those with certain health conditions. Talk to your health care provider if you have questions about receiving the vaccine. Discharge Instr - ActivityGrSweetie nielson P.T., D.P.T. - 01/27/2022 1:59 PM CDT [...] Discharge information provided on 01/27/2022 Contact information: [facility], Nitin Blunt, documented in this encounter Medications at Time [...] unclear etiology but may be hemolytic. Nora Kelly, Michelle., R.Ph. Yue Silver M.D. - 01/28/2022 3:15 PM CDT [facility] Medicine 3 ([facility]) PROGRESS NOTE SUBJECTIVE Christelle says she is [...] / PLAN Ms. Carias is hospitalized on [place] [address] ([facility]) for evaluation and management of Failure Renal [...] 40mg # Dispo - Please provide a non-[place] home health order for resumption of previous services by home health care for correction once a week medication management on the [...] with expected discharge date Plan discussed with [facility] Medicine 3 ([facility]) Social Science Research Assistant, Ervin Osorio M.D., who was present during judd portions of the evaluation today. Please page the [facility] Medicine 3 ([facility]) service pager at [phone] with any questions. T Calrotta Rader RDN, TALI - 01/28/2022 3:09 PM CDT Clinical Nutrition: [...] +1 generalized, +1-2 BLE edema noted per security consultant. Estimated Needs: Total Calorie Needs: 0774-8488 calories/day Method to Estimate Energy Needs: [place] (Basal to Basal + 20%) Weight Used [...] about patient's nutritional care please contact pager [phone] on weekdays or [phone] on weekends/holidays. Ervin Mazariegos M.D. - 01/28/2022 1:19 PM CDT [facility] Medicine 3 ([facility]) Supervisory Note I have seen and assessed [...] our team's planof care. Counseling was provided eqsv-gg-[id number] at bedside regarding the plan of care [...] Treat general acute Onset Date: 01/20/22 Payor: [facility] [place] / Plan: [facility] [place] REST[place]ED [place]AN / Product [...] Modified independent Assessment/Delivery: Assessed Toilet Transfers Comments: Yhw-xx-zpiwy transfers as above; patient initially requesting therapist [...] needs met and questions answered. Outcome Measures -[facility] Inpatient Short Form: -[facility] Basic Mobility (V.2) How much [...] 3-5 steps with a railing?: A Little AM-[facility] Basic Mobility (V.2) Raw Score: 23 AM-PAC Basic Mobility (V.2) Standardized Score: 50.88 Interpretation: Clinicians answer the -[facility] Inpatient Short Form based on [...] min Total Treatment Time (min): 20 min (5811-2659) Allie Greer P.T., Slick.P.T. Harlna Monterroso, RSumaN. - 01/28/2022 7:22 AM CDT SUBJECTIVE Referral Data Discharge Planning: Reconnection of [facility] patient declined additional resources. Anticipated Needs Home [...] Selected Services Address Phone Fax Patient Preferred [facility] [address] [facility] [phone] -- Contact: Intake NURSING: - Complete documentation in the Discharge Navigator including Nursing Report Info and Facility/NextLevel of Care Info - Call report and arrange for the patient???s first visit. - Send required packet of dismissal information with patient, including After Visit Summary and advance directive. PRIMARY SERVICE: - Please provide a non-[place] home health order for resumption of previous services by home health care for correction once a week medication management on the [...] Guan M.D. - 01/27/2022 1:08 PM CDT [facility] Medicine 3 ([facility]) Supervisory Note I have seen and assessed [...] team's plan of care. Counseling was provided zsrs-cz-phkj at bedside regarding the plan of care as stated above. I personally spent over half of a total 25 minutes in counseling and coordination of care as documented above. Gerda Shirley M.D., M.S. - 01/27/2022 11:56 AM CDT [facility] 3 ([facility]) PROGRESS NOTE SUBJECTIVE Patient had EGD with [...] / PLAN Ms. Carias is hospitalized [place] [address] ([facility]) for evaluation and management of Failure Renal [...] 40mg # Dispo - Please provide a [facility] home health order for resumption of previous services by home health care for correction once a week medication management on the [...] with expected discharge date Plan discussed with [facility] Medicine 3 ([facility]) Social Science Research Assistant, Ervin Osorio M.D., who was present during judd portions of the evaluation today. Please page the [facility] Medicine 3 ([facility]) service pager at [phone] with any questions. Nora Kelly Pharm.D., R.Ph. [...] Mazariegos M.D. - 01/26/2022 2:01 PM CDT [facility] Medicine 3 ([facility]) Supervisory Note I have seen and assessed [...] our team's planof care. Counseling was provided attg-lh-zpfj at bedside regarding the plan of care [...] note pulled forward below from 01/21/2022 by Art Supervisor Virginia Handley M.S., R.N. SUBJECTIVE Referral Data Discharge Planning: Reconnection of [facility] patient declined additional resources. Anticipated Needs Home [...] Selected Services Address Phone Fax Patient Preferred [facility] [address] [facility] [phone] -- Contact: Intake NURSING: - Complete documentation in the Discharge Navigator including Nursing Report Info and Facility/NextLevel of Care Info - Call report and arrange for the patient???s first visit. - Send required packet of dismissal information with patient, including After Visit Summary and advance directive. PRIMARY SERVICE: - Please provide a non-[place] home health order for resumption of previous services by home health care for correction once a week medication management on the [...] 01/26/2022 6:12 AM CDT [facility] Medicine 3 ([facility]) PROGRESS NOTE SUBJECTIVE Ms. Carias reports feeling [...] / PLAN Ms. Carias is hospitalized on [facility] 3 ([facility]) for evaluation and management of Failure Renal [...] 40mg # Dispo - Please provide a [facility] home health order for resumption of previous services by home health care for correction once a week medication management on the [...] with expected discharge date Plan discussed with [facility] Medicine 3 ([facility]) Social Science Research Assistant, Joshua Ayala M.D., who was present during judd portions of the evaluation today. Please page the [facility] Medicine 3 ([facility]) service pager at [phone] with any questions. Rhea Silver MD Nora Kelly Pharm.D., R.Ph. - 01/26/2022 5:37 AM CDT Pharmacist [...] today (given FFP d/t increased INR). Nora Kelly Pharm.D., R.Ph. Yue Silver M.D. - 01/25/2022 6:06 AM CDT [facility] Medicine 3 ([facility]) PROGRESS NOTE SUBJECTIVE Ms. Carias reports significant [...] / PLAN Ms. Carias is hospitalized on [place] [address] ([facility]) for evaluation and management of Failure Renal [...] with expected discharge date Plan discussed with [facility] Medicine 3 ([facility]) Social Science Research Assistant, Joshua Ayala M.D., who was present during judd portions of the evaluation today. Please page the [facility] Medicine 3 ([facility]) service pager at [phone] with any questions. Rhea Silver MD Associated attestation - Joshua Johnson M.D. - 01/25/2022 3:45 PM CDT I saw and evaluated the patient, participating in the judd portions of the service. I reviewed the resident/fellow???s note. I agree with the resident/fellow???s findings and plan. Yue Silver M.D. - 01/24/2022 7:11 AM CDT [facility] Medicine 3 ([facility]) PROGRESS NOTE SUBJECTIVE Ms. Carias reports feeling [...] / PLAN Ms. Carias is hospitalized on [place] [address] ([facility]) for evaluation and management of Failure Renal [...] with expected discharge date Plan discussed with [facility] Medicine 3 ([facility]) Social Science Research Assistant, Joshua Ayala M.D., who was present during judd portions of the evaluation today. Please page the [facility] Medicine 3 ([facility]) service pager at [phone] with any questions. Rhea Silver MD Associated [...] Internal Medicine, PGY-1 Medicine 3 Service Pager [phone] Migue Spencer - 01/23/2022 11:24 AM CDT [facility] Medicine 3 ([facility]) PROGRESS NOTE SUBJECTIVE Ms. Carias did well [...] / PLAN Ms. Carias is hospitalized on [facility] 3 ([facility]) for evaluation and management of Failure Renal [...] with expected discharge date Plan discussed with [facility] Medicine 3 ([facility]) Social Science Research Assistant, Joshua Ayala M.D., who was present during judd portions of the evaluation today. Please page the [facility] Medicine 3 ([facility]) service pager at [phone] with any questions. Migue Spencer Third-Year Medical Student [facility] Joshua Francois M.D. - 01/23/2022 10:29 AM [...] had any bowel movements despite lactulose treatment. [place] making test was completed 37 seconds indicating [...] Holding DVT ppx. Nora Kelly Pharm.D., R.Ph. Sree Little M.D. - 01/21/2022 4:16 PM [...] with the resident/fellow???s findings and plan. Virginia Hadnley M.S., R.N. - 01/21/2022 12:40 PM CDT Care Management Consult completed by SOPHIA Ramsey, METAL MODEL MAKER on 01/12/22. SUBJECTIVE Referral Data Discharge Planning: Reconnection of [facility] patient declined additional resources. Anticipated Needs Home [...] Selected Services Address Phone Fax Patient Preferred [facility] [address] [facility] [phone] -- Contact: Intake NURSING: - Complete documentation in the Discharge Navigator including Nursing Report Info and Facility/NextLevel of Care Info - Call report and arrange for the patient???s first visit. - Send required packet of dismissal information with patient, including After Visit Summary and advance directive. PRIMARY SERVICE: - Please provide a non-[place] home health order for resumption of previous services by home health care for correction once a week medication management on the [...] needs arise. Virginia Handley M.S., R.N. Nora Kelly Pharm.D., R.Ph. - 01/21/2022 6:47 AM CDT Pharmacist [...] 01/20/2022 11:45 PM CDT T Medicine 3 ([facility]) Senior Admission Note SUBJECTIVE CHIEF COMPLAINT: MOSHE [...] splenomegaly palpable in tender to palpation Skin: [facility] Extremities: Warm well perfused, no muscular atrophy [...] will be formally staffed with the supervising specification consultant in the morning. Please page the [facility] 3 ([facility]) service pager with any questions. Kathy Ibrahim M.D. Internal Medicine, PGY-3 Matthew Becerril M.D. - 01/20/2022 11:05 PM [...] Treat general acute Onset Date: 01/20/22 Payor: [facility] [place] / Plan: [facility] CARE RESTRICTED PLAN / Product Type: [...] Pretransplant Recipient Evaluation Exam Deficiency Vitamin A Fci Use Of Opiate Analgesic Nicotine Dependence Cigarettes [...] >1 year Prior Mobility/Functional Transfers Level of [place]: Modified independent Gait Devices/Wheelchair Used: Front wheeled [...] needs met and questions answered. Outcome Measures [facility] Inpatient Short Form: -[facility] Basic Mobility (V.2) How much [...] 3-5 steps with a railing?: A Lot -[facility] Basic Mobility (V.2) Raw Score: 19 -[facility] Basic Mobility (V.2) Standardized Score: 42.48 Interpretation: Clinicians answer the -[facility] Inpatient Short Form based on [...] Inpatient Appointment: 01/28/22 PT Plan Comments: Progress qph-fq-gxkqz transfers; progress ambulation; stair negotiation Treatment interventions may include: Treatment/Interventions: Therapeutic functional activity, Gait training, Self- care/home management Billing: Time Spent with Patient Evaluations PT Eval - Mod Complexity: 10 min Therapeutic Interventions Therapeutic Activity (min): 16 min Time Tracking Total Timed Units (min): 16 min Total Treatment Time (min): 26 min (4399-5274; Co-evaluation and treatment session with OT in order to optimize patient care. The patient benefitted from having two skilled therapists present in order to maximize mobility progression and maximize safety. OT and PT addressed different aspects of mobility during treatment session) Allie Greer P.T., D.P.T. Alysia Baeza M.S. - 01/27/2022 1:03 PM CDT Occupational Therapy [facility] Inpatient Evaluation/Treatment SUBJECTIVE Patient's Name: Catia Carias Referring/Attending Provider: Ervin Mazariegos M.D. Medical Diagnosis: Cirrhosis Alcoholic (HCC) [K70.30] Failure Renal Acute (Acute Kidney Injury) (HCC) [N17.9] Ascites [R18.8] Alcohol Use Unspecified With Unspecified Alcohol Induced Disorder (HCC) [F10.99] Hepatic Failure Unspecified Without Coma (HCC) [K72.90] Reason for Referral: Occupational Therapy Evaluation and Treatment OT General Acute Onset Date: 01/20/22 Payor: [facility] [place] / Plan: [facility] [place] RESTRICTED PLAN / Product [...] Pretransplant Recipient Evaluation Exam Deficiency Vitamin A Blade Aligner Use Of Opiate Analgesic Nicotine Dependence Cigarettes [...] paint, color Prior Mobility/Functional Transfers Level of [place]: Modified independent Gait Devices/Wheelchair Used: Front wheeled [...] Completion Date - OT: 01/27/22 Outcome Measures [facility] Inpatient Short Form: Putting on and [...] Standardized Score: 42.03 Interpretation: Clinicians answer the [facility] Inpatient Short Form based on observed [...] in shower, Grab bar(s) by toilet (Long-handled automotive painter; Long-handled sponge) Barriers to Discharge Home: Current [...] documented in this encounter Nursing Notes Stacie Sullivan, R.N. - 01/29/2022 12:01 PM CDT Problem: [...] Safety measures in place. T Paz Velasquez RGabby - 01/27/2022 3:48 PM CDT Shift Goals: [...] safe environment Outcome: Progressing Liberty Carty M.S. RSumaNSuma - 01/21/2022 6:40 PM CDT Shift Goals: [...] the day. Transferring using GB/pivot w/ 1-2. [facility] setup by JB. Patient states all needs met at this [...] Care for this patient was transferred to [place] at shift change. Please see associated documentation forfurther information. Catia Carias is a 31 y.o. female here for evaluation of Abnormal Lab (Liver patient). BP 103/61 Pulse 103 Temp 36.7 ??C (Oral) Resp 20 SpO2 93% ED Course as of 01/21/22 08WedJan 21, 2022 0111 Creatinine(!): 1.24 Disposition coming into the hospital for acute kidney injury concerning for rising potassium as wellas history of alcoholic cirrhosis. 0458 Re-evaluated the patient. Systolic blood pressure 108, temperature 36.6?? C 0532 Patient finally has a bed assigned on the floor. Nursing has given report and they will transport her shortly. Final Diagnoses: as of 01/21/22 08 Failure Renal Acute (Acute Kidney Injury) (HCC) [...] an outpatient by her providers in the [place] area. She was advised to come to [...] Cody Knight M.D. 01/21/22 1449 Liv Allen Sera - 01/20/2022 8:30 PM CDT SUBJECTIVE CHIEF [...] U Negative Ketone, POCT, U Trace(!) Specific [place], POCT, U 1.015 Blood, POCT, U Negative [...] Failure Unspecified Without Coma (HCC) Liv Allen 01/20/222243 Sadia Loredo R.N. - 01/20/2022 8:06 PM CDT Pt [place] to [place] [address] with back pain, rib cage pn, and [...] Radiology Matthew Jerome 2 Tyrell Rodriguez M.D. [address] [place] [address] [phone] Appointment Gastroenterology and Adrianne, 2 Hepatology Yue Burciaga M.D. [address] [place] [phone] Virtual Visit Transplant Matthew Jerome 2 Tyrell Rodriguez M.D. [address] [place] [address] [phone] Office Visit Gastroenterology and Matthew Jerome 2 Hepatology Tyrell Rodriguez M.D. [address] [place] [address] [phone] Appointment Radiology Matthew Jerome 2 Tyrell Rodriguez M.D. [address] [place] [address] [phone] Hospital Gastroenterology and Matthew Jerome Cirrhos is Alcoholic (HCC) 2 Encounter Hepatology Tyrell Rodriguez M.D. [address] [place] [phone] Anesthesia Event Gastroenterology and Rl, 2 Hepatology Ervin Burgos M.D. [address] [place] [address] [phone] Surgery Gastroenterology and Mous[place], Matthew ESOPHAG OGASTRODUODENOSCOPY 2 Hepatology Tyrell Rodriguez M.D. 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 Hypertension Portal (HCC) Scheduled Referrals Name Type Priority Associated Diagnoses Order [facility] Outpatient Referral Routine Cirrhosis Alcoholic Ordered: Health [...] with Differential, Blood (01/29/2022 4:39 AM CDT) [facility] Method Time Signature Hemoglobin 8.0 (L) [...] Organization Address City/[facility] Code Phon e Number [facility] - [address] (ABNORMAL) Basic Metabolic Panel (01/29/2022 4:39 AM [...] [facility]/ZIP Code Phon e Number [facility] - 200 [place] [address] [address] [id number] (ABNORMAL) Hematocrit (01/28/2022 1:36 PM CDT) P athologist Signature Hematocrit 22.0 (L) 35.5 - 44.9 01/28/2022 [facility]10 PM CDT Specimen Anatomical Collection Method Collection Time Receive d Time (Source) Location / / Volume Laterality Blood (Blood, 01/28/2022 1:36 PM 01/29/20 22 2:08 Venous) CDT PM CDT Yue Silver M.D. LAB BLOOD ADD-ON Performing Organization Address City/State/ZIP Code Phon e Number [facility] - [address] [place] [address] 559 05 [place] [address] Laboratories[address] [place] Lower Extremity Veins Bilateral (01/28/2022 [...] man agement can be found on the [employer] site. Link [email or web address] Procedure Note Migue Talavera M.D. - 01/28/2022Form [...] man agement can be found on the [employer] site. Link [email or web address] IMPRESSION: 1. Negative for acute DVT within [...] Address City/State/ZIP Code Phon e Number [facility] - [address] [place], [place] [address] [facility] [place] [address] Laboratories-[facility] [address] (ABNORMAL) Basic [...] Address City/State/ZIP Code Phon e Number [facility] - [address] [place] [address] 05 [facility] [place] [address] Laboratories-[facility] [address] (ABNORMAL) CBC without Differential (01/28/2022 5:28 AM CDT) [employer] gist Method Time Signature Hemoglobin 7.4 (L) [...] M.S. LAB BLOOD ADD-ON Performing Organization Address City/State/[facility] Code Phon e Number [facility] - [address] [place] [address] 05 [facility] [place] [address] [facility] [address] [place] Paracentesis [...] with Differential, Blood (01/27/2022 4:47 AM CDT) [facility] Time Signature Hemoglobin 7.4 (L) 11.6 - [...] Address City/State/ZIP Code Phon e Number [facility] - [address] [place] [address] 05 [facility] [place] [address] [facility] 200 [facility] Basic Metabolic Panel (01/27/2022 4:47 AM [...] Address City/State/ZIP Code Phon e Number [facility] - [address] [place], [place] [address] [facility] [place] [address] [facility] [address] (ABNORMAL) Cystatin C with Estimated GFR [...] DanielSSuma LAB BLOOD ADD-ON Performing Organization Address City/[facility] Phon e Number [facility] - [address] [place] [address] (ABNORMAL) Coagulation Factor XI Activity Assay (01/26/2022 6:58 PM CDT) athologist Signature Coag Factor XI 18 (L) 55 - 150 % 01/27/2022 [facility] Assay, P 12:47 PM CDT Comment: ----ADDITIONAL INFORMATION---- This test has been modified from the man flakitar's instructions. Its performance characteri stics were determined by [facility] in a manner co nsistent with CLIA requirements. This test has not bee n cleared or approved by the U.S. Food and Drug Admin istration. Specimen Anatomical Collection Method Collection Time Receive d Time (Source) Location / / Volume Laterality Blood 01/26/2022 6:58 PM 2 CDT 11:30 AM CDT Darrick DanielSSuma LAB BLOOD ADD-ON Performing Organization Address City/State/[facility] Phon e Number [facility] - [address] [place] [address] (ABNORMAL) Coagulation Factor XII Activity Assay (01/26/2022 6:58 PM CDT) P athologist Signature Coag Factor XII 32 (L) 55 - 180 % 01/27/2022 DTL Assay, P 12:47 PM CDT Comment: ----ADDITIONAL INFORMATION---- This test has been modified from the [facility] hospital[facility]'s instructions. Its performance characteri stics were determined by [facility] in a manner co nsistent with CLIA requirements. This test has not bee n cleared or approved by the U.S. Food and Drug Admin istration. Specimen Anatomical Collection Method Collection Time Receive d Time (Source) Location / / Volume Laterality Blood 01/26/2022 6:58 PM 2 CDT 11:30 AM CDT Darrick DanielSSuma LAB BLOOD ADD-ON Performing Organization Address City/[facility] Phon e Number [facility] - [address] [place] [address] (ABNORMAL) Coagulation Factor IX Activity Assay (01/26/2022 6:58 PM CDT) athologist Signature Coag Factor IX 29 (L) 65 - 140 % 01/27/2022 DTL Assay, P 12:47 PM CDT Comment: ----ADDITIONAL INFORMATION---- This test has been modified from the [facility] hospitalact[facility]'s instructions. Its performance characteri stics were determined by [facility] in a manner co nsistent with CLIA requirements. This test has not bee n cleared or approved by the U.S. Food and Drug Admin istration. Specimen Anatomical Collection Method Collection Time Receive d Time (Source) Location / / Volume Laterality Blood 01/26/2022 6:58 PM 2 CDT 11:30 AM CDT Darrcik DanielSSuma LAB BLOOD ADD-ON Performing Organization Address City/State/ZIP Code Phon e Number [facility] - [address] [place] [address] Laboratories-[address] Coagulation Factor VIII Activity Assay (01/26/2022 6:58 PM CDT) athologist Signature Coag Factor 93 55 - 200 % 01/27/2022 DTL VIII Activity 12:19 PM CDT Assay, P Comment: ----ADDITIONAL INFORMATION---- This test has been modified from the [facility] hospitalacturer's instructions. Its performance characteri stics were determined by [facility] in a manner co nsistent with CLIA requirements. This test has not bee n cleared or approved by the U.S. Food and Drug Admin istration. Specimen Anatomical Collection Method Collection Time Receive d Time (Source) Location / / Volume Laterality Blood 01/26/2022 6:58 PM 2 CDT 11:30 AM CDT Darrick DanielSSuma LAB BLOOD ADD-ON Performing Organization Address City/[facility] Phon e Number [facility] - [address] [place] [address] (ABNORMAL) Coag Factor X Assay, P (01/26/2022 6:58 PM CDT) athologist Signature Coag Factor X 29 (L) 70 - 150 % 01/27/2022 DTL Assay, P 12:19 PM CDT Comment: ----ADDITIONAL INFORMATION---- This test has been modified from the [facility] hospitalacturer's instructions. Its performance characteri stics were determined by [facility] in a manner co nsistent with [...] Address City/State/ZIP Code Phon e Number [facility] - [address] [place] [address] Laboratories[address] (ABNORMAL) Coagulation Factor VII Activity Assay (01/26/2022 6:58 PM CDT) athologist Signature Coag Factor VII 13 (L) 65 - 180 % 01/27/2022 DTL Assay, P 12:19 PM CDT Comment: ----ADDITIONAL INFORMATION---- This test has been modified from the [facility] hospitalacturer's instructions. Its performance characteri stics were determined by [facility] in a manner co nsistent with CLIA requirements. This test has not bee n cleared or approved by the U.S. Food and Drug Admin istration. Specimen Anatomical Collection Method Collection Time Receive d Time (Source) Location / / Volume Laterality Blood 01/26/2022 6:58 PM 2 CDT 11:30 AM CDT Darrick DanielSSuma LAB BLOOD ADD-ON Performing Organization Address City/[facility] Phon e Number [facility] - [address] [place] [address] [place] [address] (ABNORMAL) Coagulation Factor V Activity Assay (01/26/2022 6:58 PM CDT) athologist Signature Coag Factor V 18 (L) 70 - 165 % 01/27/2022 DTL Assay, P 12:19 PM CDT Comment: ----ADDITIONAL INFORMATION---- This test has been modified from the [facility] hospitalacturer's instructions. Its performance characteri stics were determined by [facility] in a manner co nsistent with CLIA requirements. This test has not bee n cleared or approved by the U.S. Food and Drug Admin istration. Specimen Anatomical Collection Method Collection Time Receive d Time (Source) Location / / Volume Laterality Blood 01/26/2022 6:58 PM 2 CDT 11:30 AM CDT Darrick DanielSSuma LAB BLOOD ADD-ON Performing Organization Address City/[facility] Phon e Number [facility] - [address] [place] [address] [place] [address] Laboratories[address] (ABNORMAL) Coagulation Factor II Activity Assay (01/26/2022 6:58 PM CDT) athologist Signature Coag Factor II 28 (L) 75 - 145 % 01/27/2022 [facility] Assay, P 12:19 PM CDT Comment: ----ADDITIONAL INFORMATION---- This test has been modified from the [facility] hospitalacturer's instructions. Its performance characteri stics were determined by [facility] in a manner co nsistent with CLIA requirements. This test has not bee n cleared or approved by the U.S. Food and Drug Admin istration. Specimen Anatomical Collection Method Collection Time Receive d Time (Source) Location / / Volume Laterality Blood 01/26/2022 6:58 PM 2 CDT 11:30 AM CDT Darrick DanielSSuma LAB BLOOD ADD-ON Performing Organization Address City/[facility] Phon e Number [facility] - [address] [place] [address] Reptilase Time, Plasma (01/26/2022 6:58 PM CDT) athologist Signature Reptilase Time, 21.0 14.0 - 23.9 01/27/2022 [facility] P sec 11:03 AM CDT Comment: ----ADDITIONAL INFORMATION---- This test has been modified from the [facility] hospitalacturer's instructions. Its performance characteri stics were determined by [facility] in a manner co nsistent with CLIA requirements. This test has not bee n cleared or approved by the U.S. Food and Drug Admin istration. Specimen Anatomical Collection Method Collection Time Receive d Time (Source) Location / / Volume Laterality Blood 01/26/2022 6:58 PM 2 7:12 CDT AM CDT Darrick DanielSSuma LAB BLOOD ADD-ON Performing Organization Address City/[facility] Phon e Number [facility] - [address] [place] [address] PT Mix 1:1 (01/26/2022 6:58 PM CDT) athologist Signature PT Mix 1:1 11.8 9.4 - 12.5 01/27/2022 DTL sec 11:04 AM CDT Comment: ----ADDITIONAL INFORMATION---- This test has been modified from the doug boggsr's instructions. Its performance characteri stics were determined by [facility] in a manner co nsistent with CLIA requirements. This test has not bee n cleared or approved by the U.S. Food and Drug Admin istration. Specimen Anatomical Collection Method Collection Time Receive d Time (Source) Location / / Volume Laterality Blood 01/26/2022 6:58 PM 2 7:12 CDT AM CDT Darrick DanielSSuma LAB BLOOD ADD-ON Performing Organization Address City/[facility] Phon e Number [address] APTT Mix 1:1 (01/26/2022 6:58 PM CDT) athologist Signature APTT Mix 1:1 28 25 - 37 sec 01/27/2022 DTL 11:04 AM CDT Comment: ----ADDITIONAL INFORMATION---- This test has been modified from the doug boggsr's instructions. Its performance characteri stics were determined by [facility] in a manner co nsistent with CLIA requirements. This test has not bee n cleared or approved by the U.S. Food and Drug Admin istration. Specimen Anatomical Collection Method Collection Time Receive d Time (Source) Location / / Volume Laterality Blood 01/26/2022 6:58 PM 2 7:12 CDT AM CDT Darrick DanielSSuma LAB BLOOD ADD-ON Performing Organization Address City/[facility] Phon e Number [facility] - [address] Dilute Russells Viper Venom Time (DRVVT) (01/26/2022 6:58 PM CDT) athologist Signature DRVVT Screen 0.85 <1.20 ratio 01/27/2022 DTL Ratio 11:04 AM CDT Specimen Anatomical Collection Method Collection Time Receive d Time (Source) Location / / Volume Laterality Blood 01/26/2022 6:58 PM 2 7:12 CDT AM CDT Darrick DanielS. LAB BLOOD ADD-ON Performing Organization Address City/[facility]/ZIP Code Phon e Number [facility] - [address] (ABNORMAL) PT-Fibrinogen (01/26/2022 6:58 PM CDT) athologist Signature PT-Fibrinogen, 241 (L) 261 - 595 01/27/2022 DTL P mg/dL 9:36 AM CDT Specimen Anatomical Collection Method Collection Time Receive d Time (Source) Location / / Volume Laterality Blood 01/26/2022 6:58 PM 2 7:12 CDT AM CDT Darrick DanielS. LAB BLOOD NON ADD-ON Performing Organization Address [facility] Phon e Number [facility] - [address] (ABNORMAL) Soluble Fibrin Monomer (01/26/2022 6:58 PM CDT) P athologist Signature Soluble Fibrin 165 (H) <=8 mcg/mL 01/27/2022 DTL Monomer 10:57 AM CDT Comment: ----ADDITIONAL INFORMATION---- This test was developed and its performa nce characteristics determined by [facility] in a manner co nsistent with [...] [facility]/ZIP Code Phon e Number [facility] - [address] [place], [place] [address] [facility] [place] [address] [facility] [address] [facility] (ABNORMAL) DIC/ICF Profile (01/26/2022 6:58 PM CDT) [employer] gist Method Time Signature Prothrombin Time 25.2 [...] Its performance characteri stics were determined by [facility] in a manner co nsistent with [...] 7:12 Venous) CDT AM CDT Narrative [facility] - 01/27/2022 5:26 PM CDT Specimen Information: Specimen ID: [id number] Specimen Type: Blood Specimen Collection Start Date: 01/27/20 22 ??6:58 PM Specimen Received Date: 01/27/2022 ??7:1 2 AM Specimen ID: [id number] Specimen Type: Blood Specimen Collection Start Date: 01/27/20 ??6:58 PM Specimen Received Date: 01/27/2022 ??7:1 2 AM Specimen ID: [id number] Specimen Type: Blood Specimen Collection Start Date: 01/27/20 ??6:58 PM Specimen Received Date: 01/27/2022 ??7:1 2 AM Specimen ID: [id number] Specimen Type: Blood Specimen Collection Start Date: 01/27/20 ??6:58 PM Specimen Received Date: 01/27/2022 ??7:1 2 AM Specimen ID: [id number] Specimen Type: Blood Specimen Collection Start Date: 01/27/20 ??6:58 PM Specimen Received Date: 01/27/2022 ??7:1 2 AM Darrick Santillan LAB BLOOD NON ADD-ON Performing Organization Address City/[facility] Phon e Number [facility] [place] [address] [place] [address] [facility] 200 [facility] (ABNORMAL) Copper (01/26/2022 6:57 PM CDT) athologist Signature Copper, S 58 (L) 77 - 206 01/27/2022 [facility] mcg/dL 11:02 AM CDT Comment: ----ADDITIONAL INFORMATION---- This test was developed and its performa nce characteristics determined by [facility] in a manner consistent with CLIA [...] [facility]/ZIP Code Phon e Number [facility] [address] [place], [place] [address] [place], [place] [id number] [place] [address] Dr. TA Mueller (01/26/2022 6:57 PM CDT) athologist Signature Lance Mueller 66 60 - 106 01/27/2022 [facility] mcg/dL 11:02 AM CDT Comment: ----ADDITIONAL INFORMATION---- This test was developed and its performa nce characteristics determined by [facility] in a manner consistent with CLIA [...] Organization Address City/State/ZIP Code Phon e Number [address] [place] [address] [place], [place] [id number] [place] [address] Dr. [place] Upper GI Endoscopy (01/26/2022 3:18 [...] (non-bleeding). ? - No specimens collected. Narrative [facility] [employer] - 01/26/2022 10:50 PM CDT Otto 6 GI GI Patient Name: Catia Carias Date of : 1990 Age: 31 Gender: Female Procedure Date: 01/26/2022 Procedure: ? Upper GI endoscopy Providers: ? Andreas Price MD, Eulogio Donald MD ? (Elicia adamsonw) Referring Provider: ?Huang Diamond Pre-op Diagnoses: ?Esophageal [...] No immedia te complications. 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 pro cedure, including non-judd portions. Andreas Price MD 01/26/2022 10:50:15 PM This report has been signed electronical ly. Number of Addenda: 0 Huang Diamond M.D. GI PROCEDURE ORDERABLES Performing Organization Address City/[facility]/ZIP Code Phon e Number [facility] [employer] [employer] NA Transfuse Fresh Frozen Plasma :INR >2: Invasive proc scheduled; 180 mL/hr (01/26/2022 11:20 AM CDT) Darrick CheryB.S. BLOOD TRANSFUSION ORDERABLES Transfuse Fresh Frozen Plasma :INR >2: Invasive proc scheduled; 180 mL/hr, 2 Units (01/26/2022 11:20 AM CDT) Darrick CheryB.S. BLOOD TRANSFUSION ORDERABLES (ABNORMAL) Hematocrit (01/26/2022 11:16 AM CDT) athologist Signature Hematocrit 21.3 (L) 35.5 - 44.9 01/[facility]/2022 [facility] 11[facility]25 AM CDT Specimen Anatomical Collection Method Collection Time Receive d Time (Source) Location / / Volume Laterality Blood (Blood, 01/26/2022 11:16 01/26/2022 Venous) AM CDT 11:22 AM CDT Gerda Hull M.D., M.S. LAB BLOOD ADD-ON Performing Organization Address City/State/ZIP Code Phon e Number [facility] - [address] [place], [place] [address] [facility] [place] [address] [facility] [address] (ABNORMAL) Hemoglobin (01/26/2022 11:16 [...] Address City/State/ZIP Code Phon e Number [facility] - [address] [place], [place] [address] [facility] [place] [address] [facility] 200 [facility] Transfuse Emergency Released Red Blood Cells (Uncrossmatched) (01/26/2022 9:59 AM CDT) Darrick Santillan BLOOD TRANSFUSION ORDERABLES Transfuse Emergency Released Red Blood Cells (Uncrossmatched) : 1 Units (01/26/2022 9:59 AM CDT) Darrick DanielSSuma BLOOD TRANSFUSION ORDERABLES Transfuse Fresh Frozen Plasma :INR >2: Invasive proc scheduled; 180 mL/hr (01/26/2022 7:58 AM CDT) Darrick DanielSSuma BLOOD TRANSFUSION ORDERABLES ECG 12 Lead (01/26/2022 5:05 AM CDT) P athologist Signature Ventricular Rate 96 BPM MUSE ECG/Min NE Interval 166 ms MUSE QRSD Interval 88 ms MUSE QT Interval 364 ms MUSE QTC Interval 460 ms MUSE P [place] 56 degrees MUSE R [place] 50 degrees MUSE T Wave [place] 32 degrees MUSE Specimen Anatomical Collection Method [...] Silver M.D. ECG ORDERABLES Performing Organization Address City/[facility]/ZIP Code Phon e Number MUSE MUSE NA [...] [facility]/ZIP Code Phon e Number [facility] - [address] [place] [address] 05 [facility] [place] [address] [facility] 200 [facility] (ABNORMAL) Basic Metabolic Panel (01/26/2022 4:53 [...] Address City/State/ZIP Code Phon e Number [facility] - [address] [place] [address] 05 [facility] [place] [address] [facility] 200 [facility] (ABNORMAL) CBC with Differential, Blood (01/26/2022 4:53 AM CDT) [facility] Method Time Signature Hemoglobin 6.3 (L) [...] 01/27/20 22 6:05 Venous) CDT AM CDT Darrikc Santillan LAB BLOOD ADD-ON Performing Organization Address City/State/ZIP Code Phon e Number [facility] - [address] [place] [address] 05 [facility] [place] [address] Laboratories[address] Type and Screen (with reflex Antibody ID) (01/26/2022 4:48 AM CDT) [employer] gist Method Time Signature ABORh B Pos Not 01/26/2022 STRM applicable 9:18 AM CDT Antibody Negative Negative 01/26/2022 STRM Screen 9:34 AM CDT Type & Screen 01/29/2022 01/26/2022 STRM Expiration 23:59 9:18 AM CDT Testing [place] DEFAULT 01/26/2022 STRM Location 8:55 AM CDT Specimen Anatomical Collection Method Collection Time Receive d Time (Source) Location / / Volume Laterality Blood (Blood, 01/26/2022 4:48 AM 01/27/20 22 8:55 Venous) CDT AM CDT Darrick DanielSSuma LAB BLOOD BANK TEST ORDERABL ES Performing Organization Address City/State/ZIP Code Phon e Number [facility] - [address] [place], [place] [address] [place] [address] [facility] 200 [facility] HIV-1/-2 Ag and Ab Screen, Plasma (01/25/2022 3:36 PM CDT) P athologist Signature HIV-1/-2 Ag Negative Negative 01/26/2022 [facility] and Ab Screen, 11:53 AM CDT [...] - BLOOD ORD ERABLES Performing Organization Address City/[facility] Phon e Number [facility] [address] [place], [place] [address] [place] [address] [facility] [address] [place] Transfuse Red Blood Cells : (01/25/2022 1:08 PM CDT) Darrick DanielSSuma BLOOD TRANSFUSION ORDERABLES Transfuse Red Blood Cells : , 1 Units (01/25/2022 1:08 PM CDT) Darrick CheryBSumaSSuma BLOOD TRANSFUSION ORDERABLES (ABNORMAL) AST (Aspartate Aminotransferase) (01/25/2022 9:56 AM CDT) Patholo gist Method Time Signature Aspartate 62 (H) 8 - 43 01/25/2022 DTL Aminotransferase U/L 10:32 AM CDT (AST), P Specimen Anatomical Collection Method Collection Time Receive d Time (Source) Location / / Volume Laterality Blood 01/25/2022 9:56 AM 9:56 CDT AM CDT Darrick Santillan LAB BLOOD ADD-ON Performing Organization Address City/[facility] Phon e Number [facility] - 200 [place] [address] 05 [facility] [place] [address] (ABNORMAL) CBC with Differential, Blood (01/25/2022 5:35 AM CDT) Patholo gist Method Time Signature Hemoglobin 6.2 [...] Santillan LAB BLOOD ADD-ON Performing Organization Address City/State/[facility] Phon e Number [facility] - [address] [place] [address] [facility] [place] [address] [facility]-[address] (ABNORMAL) Basic Metabolic Panel (01/25/2022 5:35 [...] Address City/State/ZIP Code Phon e Number [facility] - [address] [place], [place] [address] [facility] [place] [address] [facility] [address] (ABNORMAL) Haptoglobin (01/25/2022 5:35 AM CDT) athologist Signature Haptoglobin, S <14 (L) 30 - 200 01/26/2022 [facility] mg/dL 10:51 AM CDT Specimen Anatomical Collection Method Collection Time Receive d Time (Source) Location / / Volume Laterality Blood 01/25/2022 5:35 AM 6:58 CDT AM CDT Darrick Santillan LAB BLOOD ADD-ON Performing Organization Address City/[facility]/ZIP Code Phon e Number [facility] [address] [address] [place], [place] [address] [address] [place] [address] CHAPPELL LD (Lactate Dehydrogenase) (01/25/2022 5:35 AM CDT) [facility] LD 197 122 - 222 01/25/2022 DTL U/L 6:35 AM CDT Specimen Anatomical Collection Method Collection Time Receive d Time (Source) Location / / Volume Laterality Blood (Blood, 01/25/2022 5:35 AM 01/26/20 6:18 Venous) CDT AM CDT Darrick DanielSSuma LAB BLOOD NON ADD-ON Performing Organization Address City/[facility]/ZIP Code Phon e Number [place] [phone] [address] (ABNORMAL) SPSMA Result (01/25/2022 5:35 AM CDT) Analysis Performed At [facility] Neutrophilic Segs 74 50 - 75 [...] Reviewed by: Ruth 01/25/2022 7:[address] [facility] Specimen Anatomical Collection Method Collection Time Receive d Time (Source) Location / / Volume Laterality Blood (Blood, 01/25/2022 5:35 AM 01/26/20 5:57 Venous) CDT AM CDT Darrick DanielSSuma LAB BLOOD ADD-ON Performing Organization Address City/[facility] Phon e Number [facility] - [address] [place], [place] [address] [place] [address] [facility] 200 [facility] (ABNORMAL) Prothrombin Time (PT) (01/25/2022 5:35 [...] DanielSSuma LAB BLOOD ADD-ON Performing Organization Address City/[facility] Code Phon e Number [facility] - [address] [place] [address] 05 [facility] [place] [address] [facility] 200 [facility] Magnesium (01/25/2022 5:30 AM CDT) P athologist Signature Magnesium, S 1.9 1.7 - 2.3 01/25/2022 DTL mg/dL 5:21 PM CDT Specimen Anatomical Collection Method Collection Time Receive d Time (Source) Location / / Volume Laterality Blood (Blood, 01/25/2022 5:30 AM 09/25/20 22 5:06 Venous) CDT PM CDT Darrick Santillan LAB BLOOD ADD-ON Performing Organization Address City/State/ZIP Code Phon e Number [facility] - [address] Direct Antiglobulin Test (Poly) (01/25/2022 5:30 AM CDT) [facility] Method Time Signature Direct Negative Negative 01/25/[address] [facility] Antiglobulin 1:15 PM CDT Test, Polyspecific Specimen Anatomical Collection Method Collection Time Receive d Time (Source) Location / / Volume Laterality Blood (Blood, 01/25/2022 5:30 AM 01/26/20 22 Venous) CDT 11:46 AM CDT Darrick Santillan LAB BLOOD BANK TEST ORDERABL ES Performing Organization Address City/[facility] Phon e Number [facility] - [address] [place] [address] (ABNORMAL) Reticulocytes (01/25/2022 5:30 AM CDT) [facility] Method Time Signature Reticulocytes, B 6.67 [...] Santillan LAB BLOOD ADD-ON Performing Organization Address City/[facility] Code Phon e Number [facility] - [address] [place] [phone] 05 [facility] [place], [place] [id number] [place] [address] (ABNORMAL) Dipstick, Urine (01/24/2022 3:32 PM CDT) [employer] gist Method Time Signature Hemoglobin, Small (A) [...] Organization Address City/[facility] Phon e Number [facility] [address] Osmolality, Urine (01/24/2022 3:32 PM CDT) [...] [facility]/ZIP Code Phon e Number [facility] - [address] [place], [place] [address] [place] [address] pH, Random, Urine (01/24/2022 3:32 PM CDT) [...] [facility]/ZIP Code Phon e Number [facility] - [address] [place], [place] [address] [place] [address] (ABNORMAL) Microscopic Manual (01/24/2022 3:32 PM [...] [facility]/ZIP Code Phon e Number [facility] - [address] [place], [place] [address] [place] [address] Creatinine, Random, Urine (01/24/2022 3:32 PM CDT) athologist Signature Creatinine, 60 16 - 326 01/24/2022 DTL Random, U mg/dL 4:50 PM CDT Specimen Anatomical Collection Method Collection Time Receive d Time (Source) Location / / Volume Laterality Urine (Urine, 01/24/2022 3:32 PM 01/25/20 22 3:59 Midstream) CDT PM CDT Yue Silver M.D. LAB URINE ORDERABLES Performing Organization Address [facility] Phon e Number [facility] - [address] Sodium, Random, Urine (01/24/2022 3:32 PM [...] M.D. LAB URINE ORDERABLES Performing Organization Address [facility] Phon e Number [facility] - [address] [place] [id number] [place] [address] (ABNORMAL) Urinalysis with Microscopic: Urine, Midstream (01/24/2022 [...] [facility]/ZIP Code Phon e Number [facility] - [address] [place] [address] 55 05 [facility] [place] [address] Laboratories-[address] (ABNORMAL) Bilirubin, Total (01/24/2022 1:35 PM CDT) P athologist Signature Bilirubin, 11.9 (H) <=1.2 01/24/2022 DTL Total, P mg/dL 2:33 PM CDT Specimen Anatomical Collection Method Collection Time Receive d Time (Source) Location / / Volume Laterality Blood 01/24/2022 1:35 PM 1:35 CDT PM CDT Darrick Santillan LAB BLOOD ADD-ON Performing Organization Address City/[facility] Phon e Number [facility] - [address] [place] [address] [place] [address] Laboratories-[address] (ABNORMAL) CBC without Differential (01/24/2022 5:22 [...] Address City/State/ZIP Code Phon e Number [facility] - [address] [place] [address] 05 [facility] [place] [address] [facility] 200 [facility] (ABNORMAL) Basic Metabolic Panel (01/24/2022 5:22 [...] Laterality Blood (Blood, 01/24/2022 5:22 AM 01/25/20 22 5:57 Venous) CDT AM CDT Huang Diamond M.D. LAB BLOOD ADD-ON Performing Organization Address City/[facility] Phon e Number [facility] - [address] [place] [address] 55 05 [place] [address] [address] (ABNORMAL) Bilirubin, Direct (01/24/2022 5:17 AM CDT) athologist Signature Bilirubin, 5.1 (H) 0.0 - 0.3 01/24/2022 DTL Direct, S mg/dL 2:40 PM CDT Specimen Anatomical Collection Method Collection Time Receive d Time (Source) Location / / Volume Laterality Blood (Blood, 01/24/2022 5:17 AM 01/25/20 1:52 Venous) CDT PM CDT Darrick Santillan LAB BLOOD ADD-ON Performing Organization Address [facility] Phon e Number [facility] - [address] [place] [address] 55 05 [place] [address] Laboratories-[address] (ABNORMAL) Cystatin C with Estimated GFR [...] 22 7:33 Venous) CDT AM CDT Darrick DanielS. LAB BLOOD ADD-ON Performing Organization Address City/State/ZIP Code Phon e Number [facility] - [address] [place], [place] [address] 05 [facility] [place] [address] [facility] [address] [facility] Upper GI Endoscopy (01/23/2022 3:35 PM CDT) Specimen (Source) Anatomical Collection Method Collection Time Re ceived Time Location / / Volume Laterality 01/23/2022 3:35 PM CDT Impressions [facility] - 01/23/2022 4:08 PM CDT Post-op Diagnoses: [...] City/State/ZIP Code Phon e Number [employer] [place] (ABNORMAL) Prothrombin Time (PT) (01/23/2022 10:58 AM CDT) [facility] Method Time Signature Prothrombin 29.9 (H) 9.4 - 12.5 01/23/2022 [facility] Time, P sec 11:56 AM CDT INR 2.7 0.9 - 1.1 01/23/2022 DT 11:56 AM CDT Comment: ----ADDITIONAL INFORMATION---- Standard intensity warfarin therapeutic range: 2.0 to 3.0 ?? High intensity warfarin therapeutic rang e: 2.5 to 3.5 Specimen Anatomical Collection Method Collection Time Receive d Time (Source) Location / / Volume Laterality Blood (Blood, 01/23/2022 10:58 01/23/2022 Venous) AM CDT 11:22 AM CDT Anthony Johnson.B.B.S. LAB BLOOD ADD-ON Performing Organization Address City/[facility] Phon e Number [facility] - [id number] [place] [address] (ABNORMAL) Prothrombin Time (PT) (01/23/2022 10:58 AM CDT) [facility] Method Time Signature Prothrombin 31.5 (H) 9.4 - 12.5 01/23/2022 [facility] Time, P sec 11:12 AM CDT INR 2.8 0.9 - 1.1 01/23/2022 [facility] 11:12 AM CDT Comment: ----ADDITIONAL INFORMATION---- Standard intensity warfarin therapeutic range: 2.0 to 3.0 ?? High intensity warfarin therapeutic rang e: 2.5 to 3.5 Specimen Anatomical Collection Method Collection Time Receive d Time (Source) Location / / Volume Laterality Blood (Blood, 01/23/2022 10:58 01/23/2022 Venous) AM CDT 11:05 AM CDT Anthony Johnson.B.B.S. LAB BLOOD ADD-ON Performing Organization Address City/[facility]/ZIP Code Phon e Number [facility] - [address] (ABNORMAL) Basic Metabolic Panel (01/23/2022 5:27 [...] Address City/State/ZIP Code Phon e Number [facility] - [address] [place] [address] 05 [facility] [place] [address] [facility] 200 [facility] (ABNORMAL) CBC with Differential, Blood (01/23/2022 [...] Address City/State/ZIP Code Phon e Number [facility] - [address] [place], [place] [address] 05 [facility] [place] [address] [facility] [address] (ABNORMAL) Ammonia (01/23/2022 5:27 AM CDT) athologist Signature Ammonia, P 109 (H) <=30 01/23/2022 DTL mcmol/L 6:11 AM CDT Specimen Anatomical Collection Method Collection Time Receive d Time (Source) Location / / Volume Laterality Blood (Blood, 01/23/2022 5:27 AM 01/24/20 5:41 Venous) CDT AM CDT Sree Little M.D. LAB BLOOD NON ADD-ON Performing Organization Address City/[facility] Phon e Number [facility] - 200 [place] [address] 05 [facility] [place] [address] Laboratories-[address] (ABNORMAL) Hemoglobin (01/22/2022 10:18 PM CDT) athologist [facility] Hemoglobin 7.5 (L) 11.6 - 15.0 01/22/2022 DTL g/dL 10:47 PM CDT Specimen Anatomical Collection Method Collection Time Receive d Time (Source) Location / / Volume Laterality Blood (Blood, 01/22/2022 10:18 01/22/2022 Venous) PM CDT 10:34 PM CDT Sree Little M.D. LAB BLOOD ADD-ON Performing Organization Address City/[facility] Phon e Number [facility] - [address] Transfuse Red Blood Cells : (01/22/2022 8:01 PM CDT) Sree Little M.D. BLOOD TRANSFUSION ORDERABLES Transfuse Red Blood Cells : , 1 Units (01/22/2022 8:01 PM CDT) Sree Little M.D. BLOOD TRANSFUSION ORDERABLES (ABNORMAL) Basic Metabolic Panel (01/22/2022 9:40 AM CDT) athologist [facility] Potassium, P 4.3 3.6 - 5.2 01/22/2022 [...] Address City/State/ZIP Code Phon e Number [facility] - [address] [place] [address] 05 [place] [address] [facility] 200 [facility] (ABNORMAL) CBC with Differential, Blood (01/22/2022 9:40 AM CDT) [facility] Method Time Signature Hemoglobin 6.0 (CL) [...] Address City/State/ZIP Code Phon e Number [facility] - [address] [place] [address] 05 [facility] [place] [address] [facility] 200 [facility] Type and Screen (with reflex Antibody ID) (01/22/2022 9:39 AM CDT) [employer] gist Method Time Signature ABORh B Pos Not 01/22/2022 STRM applicable 3:19 PM CDT Antibody Negative Negative 01/22/2022 STRM Screen 3:04 PM CDT Type & Screen 01/25/2022 01/22/2022 STRM Expiration 23:59 3:04 PM CDT Testing [place] DEFAULT 01/22/2022 STRM Location 2:20 PM CDT Specimen Anatomical Collection Method Collection Time Receive d Time (Source) Location / / Volume Laterality Blood (Blood, 01/22/2022 9:39 AM 01/23/20 2:20 Venous) CDT PM CDT Kary Tracy M.D. LAB BLOOD BANK TEST ORDERABL ES Performing Organization Address City/State/ZIP Code Phon e Number [facility] - [address] [place], [place] [address] 05 [facility] [place] [address] [facility] [address] [facility] (ABNORMAL) CBC with Differential, Blood (01/22/2022 9:39 AM CDT) [facility] Method Time Signature Hemoglobin 6.2 (L) [...] - 0.08 x10(9)/L 01/22/2022 11:17 AM CDT [facility] Specimen Anatomical Collection Method Collection Time Receive d Time (Source) Location / / Volume Laterality Blood (Blood, 01/22/2022 9:39 AM 01/23/20 9:48 Venous) CDT AM CDT Sree Little M.D. LAB BLOOD ADD-ON Performing Organization Address City/[facility] Phon e Number [facility] - [address] [place], [place] 55 05 [place] [address] [address] (ABNORMAL) Prothrombin Time (PT) (01/22/2022 5:22 AM CDT) [employer] gist Method Time Signature Prothrombin 31.0 (H) [...] Organization Address City/[facility] Code Phon e Number [facility] - [address] [place], [place] [address] 05 [facility] [place] [address] [address] US Paracentesis with Imaging Guidance (01/21/2022 10:49 AM CDT) Anatomical Region Laterality Modality Abdomen, Ultrasound RST LOS, Ultrasound ARZ LOS, Procedure F LA N/A Ultrasound LOS, Abdominal FLA LOS, Procedural Specimen (Source) Anatomical Collection Method Collection Time Re ceived Time Location / / Volume Laterality 01/21/2022 10:27 AM CDT Impressions 01/21/2022 11:13 AM CDT Ultrasound-guided paracentesis. CLIENT TECHNICAL PROFESSIONAL Narrative 01/21/2022 11:13 AM CDT EXAM: US [...] met. POST-PROCEDURE DIAGNOSIS: Ascites. IMPRESSION: Ultrasound-guided paracentesis. CLIENT TECHNICAL PROFESSIONAL Matthew Becerril M.D. IMG US PROCEDURES Protein, [...] ical findings. All other fluids refer to [email or web address] for further inter pretive information. This test has been modified from the email production specialist's instructions. Its perform ance characteristics were determined by [facility] in a manner consistent with CLIA [...] Address City/State/ZIP Code Phon e Number [facility] - [address] [place], [place] [address] [facility] [place] [address] [facility] [address] Cell Count and Differential, Body Fluid (01/21/2022 [...] Its performance characteri stics were determined by [facility] in a manner co nsistent with [...] Comment No blasts or 01/21/2022 11:51 AM PM malignant cells CDT seen. Reviewed by: Tech 01/21/2022 11:51 AM DHPM CDT Specimen Anatomical Collection Method Collection Time Receive d Time (Source) Location / / Volume Laterality Fluid 01/21/2022 10:00 01/21/2022 (Peritoneal AM CDT 10:48 AM CDT Fluid) Matthew Becerril M.D. LAB BODY FLUIDS AND STOOLS O RDERABLES Performing Organization Address City/State/ZIP Code Phon e Number [facility] - [address] [place] [address] 05 [place] [address] [facility] [address] [facility] Bacterial Culture, Aerobic + Susc (01/21/2022 10:00 AM CDT) [employer] gist Method Time Signature Bacterial No growth 01/26/2022 DTL Culture, after 5 7:48 AM CDT Aerobic + Susc days of incubation. Specimen Anatomical Collection Method Collection Time Receive d Time (Source) Location / / Volume Laterality Fluid 01/21/2022 10:00 01/21/2022 (Peritoneal AM CDT 11:52 AM CDT Fluid) Comment: Specimen Source Site: Fluid Narrative [facility] - [facility] - 01/26/2022 7:48 AM CDT Bacterial Culture: Received Bactec aerob ic and Bactec anaerobic bottles Matthew Becerril M.D. LAB MICROBIOLOGY - GENERAL O JOSE Performing Organization Address City/State/ZIP Code Phon e Number [facility] - [address] [place], [place] [address] [facility] [place] [address] [facility] 200 [facility] (ABNORMAL) Comprehensive Metabolic Panel (01/21/2022 7:25 [...] Organization Address City/[facility] Code Phon e Number [facility] - [address] [place], [place] [address] 05 [facility] [place] [address] [facility] 200 [facility] (ABNORMAL) Cystatin C with Estimated GFR [...] Address City/State/ZIP Code Phon e Number [facility] - [address] [place], [place] [address] [facility] [place] [address] [facility] 200 [facility] (ABNORMAL) CBC with Differential, Blood (01/21/2022 7:25 AM CDT) [facility] Method Time Signature Hemoglobin 6.7 (L) [...] Organization Address City/[facility] Phon e Number [facility] - [address] [place], [place] 55 05 [place], [place] [id number] [place] [address] 200 [facility] (ABNORMAL) Iron and Total Iron-Binding Capacity [...] Address City/State/ZIP Code Phon e Number [facility] - [address] [place] [address] 05 [place] [address] [facility] [address] [facility] (ABNORMAL) Ferritin (01/21/2022 7:21 AM CDT) [...] [facility]ZIP Code Phon e Number [facility] - [address] [place], [place] 55 05 [place], [place] [id number] [place] [address] 200 [facility] (ABNORMAL) Hepatic Function Panel (01/21/2022 2:40 [...] Organization Address City/[facility] Code Phon e Number [facility] - [address] Lipase (01/21/2022 2:40 AM CDT) P athologist Signature Lipase, S 26 13 - 60 U/L 01/21/2022 3:23 DTL AM CDT Specimen Anatomical Collection Method Collection Time Receive d Time (Source) Location / / Volume Laterality Blood (Blood, 01/21/2022 2:40 AM 01/22/20 3:05 Venous) CDT AM CDT Cody Knight M.D. LAB BLOOD ADD-ON Performing Organization Address City/[facility] Phon e Number [facility] - [address] [place] [address] [facility] [address] Abdomen Pelvis without IV Contrast (01/20/2022 [...] Dipstick, POCT, Urine (01/20/2022 9:05 PM CDT) [facility] Time Signature Glucose, Negative Negative 01/20/2022 PCED POCT, U mg/dL 9:06 PM CDT Ketone, POCT, Trace (A) Negative 01/20/2022 PCED U mg/dL 9:06 PM CDT Specific 1.015 1.005 - 01/20/2022 PCED [place], 1.030 9:06 PM CDT POCT, U Blood, [...] City/State/ZIP Code Phon e Number POC RST [facility] [address] [place] [address] OUTPATIENT LABS PCED [facility] [place] [address] [facility] [address] (ABNORMAL) Dipstick, Urine (01/20/2022 8:57 PM CDT) [facility] Method Time Signature Hemoglobin, Negative Negative 01/20/2022 [...] Organization Address City/[facility] Phon e Number [facility] - [address] [place], [place] [address] [place] [address] [place] [address] pH, Urine (01/20/2022 8:57 PM CDT) P athologist Signature pH, U 5.5 4.5 - 8.0 01/20/2022 9:48 DTL PM CDT Specimen Anatomical Collection Method Collection Time Receive d Time (Source) Location / / Volume Laterality Urine 01/20/2022 8:57 PM 2 9:23 CDT PM CDT Cody Knight M.D. LAB URINE ORDERABLES Performing Organization Address City/[facility]/ZIP Code Phon e Number [facility] - [address] [place], [place] [address] 05 [place], [place] [id number] [place] [address] Osmolality, Urine (01/20/2022 8:57 PM CDT) P [...] [facility]/ZIP Code Phon e Number [facility] - [address] [place], [place] [address] [place] [address] Microscopic Automated (01/20/2022 8:57 PM CDT) [...] [facility]/ZIP Code Phon e Number [facility] - [address] [place], [place] [address] [place] [address] [place] [address] Gram Stain, Urine (01/20/2022 8:57 PM CDT) [facility] Method Time Signature Source Urine, 01/20/2022 [...] [facility]/ZIP Code Phon e Number [facility] - [address] [place], [place] [address] [place] [address] Bacterial Culture, Aerobic + Susc, Urine (01/20/2022 8:57 PM CDT) [facility] Method Time Signature Urine Culture No growth 01/22/2022 DT after 1 day 6:31 AM CDT of incubation. Specimen Anatomical Collection Method Collection Time Receive d Time (Source) Location / / Volume Laterality Urine (Urine, 01/20/2022 8:57 PM 01/21/20 Straight CDT 10:31 PM CDT Catheter) Comment: Specimen Source Site: Urine Cody Knight M.D. LAB MICROBIOLOGY - GENERAL O RDERABLES Performing Organization Address [facility] Phon e Number [facility] - [address] [place] [address] Urinalysis with Microscopic: Urine, Straight Catheter (01/20/2022 8:57 PM CDT) [facility] Method Time Signature Source Urine, 01/20/2022 [...] Organization Address City/[facility] Phon e Number [facility] - [address] [place] [address] (ABNORMAL) Venous Blood Gas and Electrolytes [...] [facility]/ZIP Code Phon e Number POC RST [facility] [facility] [address] [place], [place] [address] [place] [address] [place] [facility] [address] Lactate, POCT (01/20/2022 [...] Address City/[facility]/ZIP [facility] [place] Number POC [facility] [address] [place] [address] [place] [address] [place] [facility] [address] hCG (Human Chorionic Gonadotropin), Quantitative, (01/20/2022 8:49 PM CDT) athologist Signature HCG, 0.5 <5 IU/L 01/20/2022 [facility] Quantitative, 9:19 PM CDT , P Specimen Anatomical Collection Method Collection Time Receive d Time (Source) Location / / Volume Laterality Blood (Blood, 01/20/2022 8:49 PM 01/21/20 9:01 Venous) CDT PM CDT Cody Knight M.D. LAB BLOOD ADD-ON Performing Organization Address City/[facility]/ZIP [facility] [place] Number [facility] - [address] [place], [place] [address] [facility] [place] [address] [facility] [address] Lactate, POCT (01/20/2022 8:49 [...] - DEVICE Performing Organization Address [facility] Phon e Number [facility] - [address] [place], [place] [address] [place] [address] Laboratories-[address] Venous Blood Gas and Electrolytes CG8+, POCT (01/20/2022 8:49 PM CDT) Analysis Performed At [facility] VBG & Lytes Collected DEFAULT 01/20/2022 [facility] CG8+, POCT, B 8:49 PM CDT Specimen Anatomical Collection Method Collection Time Receive d Time (Source) Location / / Volume Laterality Blood (Blood, 01/20/2022 8:49 PM 01/21/20 8:49 Venous) CDT PM CDT Cody Knight M.D. LAB POCT ORDERABLES - DEVICE Performing Organization Address City/[facility] Phon e Number [facility] - [address] [place], [place] [address] [place] [address] [address] (ABNORMAL) Basic Metabolic Panel (01/20/2022 8:49 PM CDT) Analysis Performed At [facility] Potassium, P 5.2 3.6 - 5.2 01/20/2022 [...] Address City/State/ZIP Code Phon e Number [facility] - [address] [place], [place] [address] [place] [address] [facility] [address] documented in this encounter Visit Diagnoses Diagnosis Cirrhosis Alcoholic (HCC) Failure Renal Acute (Acute Kidney Injury ) (HCC) - Primary Failure Renal Acute (Acute Kidney Injury ) (HCC) Cirrhosis Alcoholic (HCC) Alcohol Use Unspecified With Unspecified Alcohol Induced Disorder (HCC) Ascites Hepatic Failure Unspecified Without Coma (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 (HCC ) Debility [R53.81 (ICD-10-CM)] Decline Functional Status [R53.81 (ICD-1 0-CM)] Thrombocytopenia (HCC) Ascites Chronic Cirrhosis Alcoholic (HCC) Hypertension Portal (HCC) Abnormal Liver Function Test Esophageal Varices Without Bleeding (HCC ) Cirrhosis Alcoholic (HCC) Anemia Ascites Hypertension Portal (HCC) Deficiency Coagulation Acquired (HCC) Chronic Pain Syndrome Esophageal Varices Without Bleeding (HCC ) Cirrhosis Alcoholic (HCC) Hypertension Portal [...] mL/hr g 25 g, intravenous, Once, On 01/27/22 at 1230, For 1 dose, If no [...] mcg 0814 (Given - Provider: Marla Kelly R.N.) 0831 (Given - Provider: Bere Garcia R.N.) 0900 (Giv en - Provider: Stacie Sullivan R.N.) 25 mcg, oral, Daily, First dose on Wed at 0900, cholecalciferol (vitamin D3) orderable was interchanged for cholecalciferol (vitamin D3) tablet/capsule ciprofloxacin tablet 500 mg (CIPRO) 0624 (Given - Prov ider: Payam Sandoval R.N.) 0641 (Given - Provider: Humera Sifuentes R.N.) 0620 (Given - Provider: Andrew CliftonNSuma) 500 mg, oral, Daily before breakfast, Fi [...] 2312 (Given - Provider: Rochelle Locke RSumaNSuma) 2111 [...] RSumaNSuma)1349 (Not Given - Provider: Juliana Larson RSumaNSuma - Reason: Patient/family refused)1650 (Given - Provider: Katina Contreras RSumaNSuma)210 (Given - Provider: Chano Ying, R.N.) 0831 (Given - Provider: Bere Garcia R.N.)1157 (Given - Provider: Bere Garcia R.N.)1650 (Given - Provider: Bere Garcia R.N.)2111 (Given - Provider: Gi Fitzpatrick R.N.) 0859 [...] R.N.)2100 (Given - Provider: Chano Ying, R.NSuma) 0832 (Given - Provider: Bere Garcia R.N.)2110 (Given - Provider: Gi Fitzpatrick R.N.) 0900 [...] 0832 (Given - Provider: Bere Garcia R.N.) 0900 (Given - Provider: Stacie Sullivan R.N.) 50 [...] R.N.) 2111 (Given - Provider: Gi Fitzpatrick RSumaNSuma) 50 mg, oral, Daily at bedtime, [...] Garcia R.N.) 0900 (Giv en - Provider: Andrew rAroyoNSuma) 220 mg, oral, Daily with breakfast, Firs t dose on Wed01/21/22 at 0800, Doses listed in zinc sulfate. Each 220 mg of zinc sulfate contains 50 mg of elemental zinc. PRN Medication Order 01/27/2022 01/28/2022 01/29/2022 cyclobenzaprine tablet 5 mg (FLEXERIL) 1149 (Given - P rovider: Paz Velasquez RSumaNSuma)2100 (Given - Provider: Chano Ying, R.N.) 0150 (Given - Provider: Humera Sifuentes RSumaN.) 5 mg, oral, Daily PRN, muscle spasms, Starting on Wed01/21/22 at 0605 fentaNYL injection 25 mcg (SUBLIMAZE) (CANCELED) 0453 (Given - Provider: Payam Sandoavl R.N.) 25 mcg, intravenous, Every 2 min [...] (DILAUDID) (CANCELED) 1622 ( Given - Provider: Andrew NicolasNSuma) 1200 (Given - Provider: Bere Garcia R.N.) 1 mg, oral, Every 24 hours PRN, moderate pain or score 4-6 of 10, severe pain or score 7-10 of 10, Starting on Wed01/27/22 at 1330, For severe pain, only after trying lidocaine, heat, conservative management HYDROmorphone tablet 1 mg (DILAUDID) (CANCELED) 1650 (Given - Provider: Bere Garcia RGabby)2111 (Given - Provider: Gi Fitzpatrick R.N.) 0537 [...] as of this encounter Care Teams Plant Physiologist Relationship Specialty Start Date End Date Ana Red P.A.-C. PCP - General Internal Medicine 12/01/[address] [place] [phone] [facility] [place] lab 08/25/21 Ervin Schroeder MD Referring Provider Family Medicine 03/24/[address] [place] [address] documented as of this encounter
--- OUTSIDE RECORDS SUMMARY | 2022-02-14 22:01 | XMS_ITS | Encounter Summary ---
:1990 Author Organization [facility] Address [address] [place] [address] Care Team Providers Name Role Phone Ana Red P.A.-C. Primary Care Provider Reason for Visit Transplant (Routine) - Authorized Specialty Diagnoses / Procedures Referred By Contact Refer red To Contact Transplant Surgery / Matthew Jerome [facility] Transplant Elizabeth.BSumaBLilian Bedolla [address] [place] [phone] Referral ID Status Reason Start Date Expiration Date Visits V isits Requested Authorized [id number] Authorized 10/27/2021 10/27/2022 1 1 Encounter Details Date Type Department Care Team Description 01/28/2022 Virtual Visit Matthew Valenzuela Can celed (Patient: Center for M.BSumaBLilian Bedolla Hospitalized / ill) Transplantation and [address] [place] [address] in [place], [place] [address] [address] [facility] [phone] [place] [address] (Work) [phone] Social History Tobacco Use Types Packs/Day Years [...] you attend christianity or Patient refused 2021 latter day services? 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 [address] [place] [phone] Virtual Visit Transplant Matthew Jerome 2 Joshua RodriguezBSumaBLilian Bedolla [address] [place] [phone] Office Visit Gastroenterology and Matthew Jerome 2 Hepatology Joshua RodriguezBSumaBLilian Bedolla [address] [place] [phone] Appointment Radiology Matthew Jerome 2 Jennifer M.B.B.Lilian Stockton [address] [place] [phone] Hospital Gastroenterology and Luischantell Matthew Cirrhos is Alcoholic (HCC) 2 Encounter Hepatology Joshua RodriguezBSumaBLilian Bedolla [address] [place] [phone] Anesthesia Event Gastroenterology and Rl, 2 Hepatology Ervin Burgos M.D. [address] [place] [phone] Surgery Gastroenterology and LuisNew abdular ESOPHAG OGASTRODUODENOSCOPY 2 Hepatology Jennifer M.B.B.Lilian Stockton [address] [place] [phone] Scheduled Procedures Name Priority Associated Diagnoses Date/Time ESOPHAGOGASTRODUODENOSCOPY Cirrhosis Alc oholic (HCC) 03/20/2022 8:45 AM LIVESTOCK TRUCKER Hypertension Portal (HCC) documented as of this encounter Visit Diagnoses Not on filedocumented in this encounter Additional Health Concerns Assessment Noted Time PHQ-9 Depression Total Score: 10 10/06/2021 5:00 PM CD T documented as of this encounter Care Teams Lpn Relationship Specialty Start Date End Date Ana Red P.A.-C. PCP - General Internal Medicine 12/01/[address] [place] [phone] [facility] [place] lab 08/25/21 Ervin Schroeder MD Referring Provider Family Medicine 03/24/[address] [place] [address] documented as of this encounter
--- OUTSIDE RECORDS SUMMARY | 2022-02-14 22:01 | XMS_ITS | Encounter Summary ---
:1990 Author Organization [facility] Address [address] [place] [address] Care Team Providers Name Role Phone Ana Red P.A.-C. Primary Care Provider [phone] Reason for Visit Auth/Cert Specialty Diagnoses / Procedures Referred By Contact Refer red To Contact Diagnoses Cirrhosis Alcoholic (HCC) Failure Renal Acute (Acute Kidney Injury) (HCC) Ascites Alcohol Use Unspecified With Unspecified Alcohol Induced Disorder (HCC) Hepatic Failure Unspecified Without Coma (HCC) Procedures ED ADMIT Referral ID Status Reason Start Date Expiration Date Visits Requ ested Visits Authorized [id number] 1 1 Encounter Details Date Type Department Care Team Description 01/26/2022 Anesthesia Event Division of Gildardo Hickey APRN, CYCLING INSTRUCTOR, DNAP [address] [place] [phone] Gastroenterology in [place]ia Green APRN, CYCLING INSTRUCTOR, DNAP [address] [place] [phone] [place], [place] [address] [place] [phone] Anesthesia Record Procedure Summary Procedure Name Responsible Anesthesia Start Anesthesia Stop Time Anesthesiologist Time EGD Gildardo Hickey APRN, 01/26/22 1538 01/26/22 1645 (ESOPHAGEALGASTRODU CYCLING INSTRUCTOR, DNAP ODENOSCOPY) Events Date Time Event Comment [...] h andoff to the receiving staff during [facility] we 1. Identified the patient [...] Brown, St ephen E, (created via procedure UMBRELLA CUTTER, CYCLING INSTRUCTOR, DNAP UMBRELLA CUTTER, CR NA, DNAP documentation); Mask Ventilation: Not [...] el, Anna C Catheter Size: 18 G; UMBRELLA CUTTER, CYCLING INSTRUCTOR, DNAP Orientation: Right; Location: Wrist; Inserted by: [...] or the highest technical, or vocational p [facility] degree you have received? 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 documented as of this encounter OR Notes Anesthesia Postprocedure Evaluation - Gildardo Hickey APRN, CRNA, DNAP - 01/26/2022 4:45 PM CDT Patient: Catia Carias Procedure Summary Date: 01/26/22 Room / Location: Division of Gastroenterology in [place], [place] Anesthesia Start: 153 Anesthesia Stop: 1644 Procedure: EGD (ESOPHAGEALGASTRODUODENOSCOPY) Diagnosis: Scheduled Providers: Gildardo Hickey APRN, CRNA, MINA Responsible Provider: Gildardo Hickey APRN, CRNA, DNAP [...] EGD (ESOPHAGEALGASTRODUODENOSCOPY) Location: Division of Gastroenterology in [place], [place] Pertinent components of the patient's history [...] with patient /legal guardian or through an client success director. Risks/Benefits/Alternatives of Blood transfusion discussed with [...] Transplant 2 Appointment Radiology LuisNew abdular 2 YJoshuaB.B.Kath, Lilian [address] [place] [phone] Appointment Gastroenterology demian Silver 2 Hepatology Yue Burciaga M.D. [address] [place] [phone] Virtual Visit Transplant LuisNew abdular 2 Jennifer M.B.B.SSuma, Lilian [address] [place] [phone] Office Visit Gastroenterology and LuisNew abdular 2 Hepatology Joshua RodriguezB.B.SSuma, Lilian [address] [place] [phone] Appointment Radiology LuisMatthew abdul 2 Y M.B.B.SSuma, Lilian [address] [place] [phone] Hospital Gastroenterology and LuisMatthew abdul Cirrhos is Alcoholic (HCC) 2 Encounter Hepatology Jennifer M.B.B.SSuma, Lilian [address] [place] [phone] Anesthesia Event Gastroenterology demian Shine, 2 Hepatology Ervin Burgos M.D. [address] [place] [phone] Surgery Gastroenterology and Mousa, Matthew ESOPHAG OGASTRODUODENOSCOPY 2 Hepatology Tyrell Rodriguez M.D. [address] [place] [phone] Scheduled Procedures Name Priority Associated Diagnoses Date/Time ESOPHAGOGASTRODUODENOSCOPY Cirrhosis Alc oholic (HCC) 03/20/2022 8:45 AM WELFARE ELIGIBILITY INTERVIEWER Hypertension Portal (HCC) documented as of this [...] as of this encounter Care Teams Sample Sewer Relationship Specialty Start Date End Date Ana Red P.A.-C. PCP - General Internal Medicine 12/01/[address] [place] [phone] [facility] 08/25/21 Ervin Schrodeer MD Referring Provider Family Medicine 03/24/[address] [place] [address] documented as of this encounter
--- OUTSIDE RECORDS SUMMARY | 2022-02-14 22:01 | XMS_ITS | Encounter Summary ---
:1990 Author Organization [facility] Address [address] [place] [address] Care Team Providers Name Role Phone Ana Red P.A.-C. Primary Care Provider [phone] Reason for Visit Reason Comments Pre-visit Testing Orders Encounter Details Date Type Department Care Team Description 01/28/2022 Clinical RST Yue Hung Pre-visit Testing Communication [address] [facility] Lilian Burciaga Orders [place], [place] [address] [place] [phone] [place] [phone] Social History Tobacco Use Types Packs/Day Years [...] you attend worship or Patient refused 2021 alevism services? Do you belong to any clubs or No 02/10/2022 organizations such as worship groups, unions, fraKaai or athletic groups, or school groups? 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 [address] [place] [phone] Virtual Visit Transplant Matthew Jerome 2 YTyrell M.D. [address] [place] [phone] Office Visit Gastroenterology and [facility] 2 Hepatology Tyrell Rodriguez M.D. [address] [place] [phone] Appointment Radiology Njchantell Matthew 2 YTyrell M.D. [address] [place] [phone] Hospital Gastroenterology and [facility] Cirrhos is Alcoholic (HCC) 2 Encounter Hepatology Tyrell Rodriguez M.D. [address] [place] [phone] Anesthesia Event Gastroenterology and Rl, 2 Hepatology Ervin Burgos M.D. [address] [place] [phone] Surgery Gastroenterology and [facility] ESOPHAG OGASTRODUODENOSCOPY 2 Hepatology Tyrell Rodriguez M.D. [address] [place] [phone] Scheduled Procedures Name Priority Associated Diagnoses Date/Time ESOPHAGOGASTRODUODENOSCOPY Cirrhosis Alc oholic (HCC) 03/20/2022 8:45 AM FURNACE BUILDER Hypertension Portal (HCC) documented as of this encounter Visit Diagnoses Not on filedocumented in this encounter Additional Health Concerns Assessment Noted Time PHQ-9 Depression Total Score: 10 10/06/2021 5:00 PM CD T documented as of this encounter Care Teams Raise Miner Relationship Specialty Start Date End Date Ana Red P.A.-C. PCP - General Internal Medicine 12/01/[address] [place] [address] ADI Chua [phone] [facility]- [place] lab 08/25/21 Ervin Schroeder MD Referring Provider Family Medicine 03/24/[address] [place], [place] [phone] documented as of this encounter
--- OUTSIDE RECORDS SUMMARY | 2022-02-14 22:01 | XMS_ITS | Encounter Summary ---
:1990 Author Organization [facility] Address [address] [place] [address] Care Team Providers Name Role Phone Ana Red P.A.-C. Primary Care Provider [phone] Reason for Visit Reason Comments Rx Prior Authorization ASHLEY DENIED - LIDOCAINE 5% PAT CH Encounter Details Date Type Department Care Team Description 01/26/2022 Clinical Communication Pharmacy Prior Auth Christopher, Rx Prior RO Nicole A Authorization (ASHLEY [id number] DENIED - LIDOCA INE 5% PATCH) Social [...] you attend orthodoxy or Patient refused 2021 yazidi services? 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 [address] [place] [phone] Appointment Gastroenterology demian Silver 2 Hepatology Yue Burciaga M.D. [address] [place] [phone] Virtual Visit Transplant LuisMatthew abdul 2 Tyrell Rodriguez M.D. [address] [place] [phone] Office Visit Gastroenterology and LuisMatthew abdul 2 Hepatology Tyrell Rodriguez M.D. [address] [place] [phone] Appointment Radiology LuisNew abdular 2 YTyrell M.D. [address] [place] [phone] Hospital Gastroenterology and LuisMatthew abdul Cirrhos is Alcoholic (HCC) 2 Encounter Hepatology Tyrell Rodriguez M.D. [address] [place] [phone] Anesthesia Event Gastroenterology demian Shine, 2 Hepatology Ervin Burgos M.D. [address] [place] [phone] Surgery Gastroenterology and Mousa, Matthew ESOPHAG OGASTRODUODENOSCOPY 2 Hepatology Tyrell Rodriguez M.D. [address] [place] [phone] Scheduled Procedures Name Priority Associated Diagnoses Date/Time ESOPHAGOGASTRODUODENOSCOPY Cirrhosis Alc oholic (HCC) 03/20/2022 8:45 AM MOTORS AND CONTROLS TESTER Hypertension Portal (HCC) documented as of this encounter Visit Diagnoses Not on filedocumented in this encounter Additional Health Concerns Assessment Noted Time PHQ-9 Depression Total Score: 10 10/06/2021 5:00 PM CD T documented as of this encounter Care Teams Pelletizer Operator Relationship Specialty Start Date End Date Ana Red P.A.-C. PCP - General Internal Medicine 12/01/[address] [place] [phone] [facility]- [place] lab 08/25/21 Ervin Schroeder MD Referring Provider Family Medicine 03/24/[address] [place] [phone] documented as of this encounter
--- OUTSIDE RECORDS SUMMARY | 2022-02-14 22:01 | XMS_ITS | Encounter Summary ---
:1990 Author Organization [facility] Address [address] [place] [address] Care Team Providers Name Role Phone Ana Red P.A.-C. Primary Care Provider [phone] Reason for Visit Auth/Cert Specialty Diagnoses / Procedures Referred By Contact Refer red To Contact Diagnoses Cirrhosis Alcoholic (HCC) Failure Renal Acute (Acute Kidney Injury) (HCC) Ascites Alcohol Use Unspecified With Unspecified Alcohol Induced Disorder (HCC) Hepatic Failure Unspecified Without Coma (HCC) Procedures ED ADMIT Referral ID Status Reason Start Date Expiration Date Visits Requ ested Visits Authorized [id number] 1 1 Encounter Details Date Type Department Care Team Description 01/23/2022 Anesthesia Event Division of Gastroenterology Allegra Cronin in [facility] pedro Wilkes APRN, BACTERIOLOGIST FOOD [address] [facility] [address] [place] [address] [place], [place] [phone] Anesthesia Record Procedure Summary Procedure Name Responsible Anesthesia Start Anesthesia Stop Time Anesthesiologist Time EGD Allegra Cronin APRN, 01/23/22 1529 2 1552 (ESOPHAGEALGASTRODU BACTERIOLOGIST FOOD ODENOSCOPY) Events Date Time Event Comment 01/23/2022 1529 An Start Machine/Equipmen t Checked Infection Precautions Foll owed Procedure/Site Verified NPO Sta tus Verified Supine Standard ASA Mon itors Applied 1534 Turnover to Proceduralist 1539 Proc Start 1543 Proc Fin 1546 Turnover to ANE Staff 1547 an stop data 1552 An End I completed my h andoff to the receiving staff during [facility] we 1. Identified the patient [...] 0900 by Placement Time: 08; Perri Alan, R.NMarla Dietrich, Catheter Size: 22 G; R.N. Orientation: [...] attend oriental orthodox or Patient refused 2021 pentecostal services? 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 Risks/Benefits/Alternatives of Blood transfusion discussed with patient [...] Appointment Radiology Matthew Jerome 2, M.B.B.S., M.D. [address] [place] [phone] Appointment Gastroenterology demian Silver, 2 Hepatology Yue Burciaga M.D. [address] [place] [phone] Virtual Visit Transplant Matthew Jerome 2 Tyrell Rodriguez M.D. [address] [place] [phone] Office Visit Gastroenterology and Matthew Jerome 2 Hepatology Tyrell Rodriguez M.D. [address] [place] [phone] Appointment Radiology LuisMatthew abdul 2 Tyrell Rodriguez M.D. [address] [place] [phone] [facility] Gastroenterology and Matthew Jerome Cirrhos is Alcoholic (HCC) 2 Encounter Hepatology Tyrell Rodriguez M.D. [address] [place] [phone] Anesthesia Event Gastroenterology and Rl, 2 Hepatology Ervin Burgos M.D. [address] [place] [phone] Surgery Gastroenterology and Matthew Jerome ESOPHAG OGASTRODUODENOSCOPY 2 Hepatology Tyrell Rodriguez M.D. [address] [place] [phone] Scheduled Procedures Name Priority Associated Diagnoses Date/Time ESOPHAGOGASTRODUODENOSCOPY Cirrhosis Alc oholic (HCC) 03/20/2022 8:45 AM OPTIMIZATION MANAGER Hypertension Portal (HCC) documented as of [...] as of this encounter Care Teams Manager Auto Relationship Specialty Start Date End Date Ana Red P.A.Jordan. PCP - General Internal Medicine 12/01/[address] [place], [place] [address] [phone] [facility] [place] lab 08/25/21 Ervin Schroeder MD Referring Provider Family Medicine 03/24/[address] [place] [address] [place] [address] documented as of this encounter
--- OUTSIDE RECORDS SUMMARY | 2022-02-14 22:01 | XMS_ITS | Encounter Summary ---
:1990 Author Organization [facility] Address [address] [place] [address] Care Team Providers Name Role Phone Ana Red P.A.-C. Primary Care Provider [phone] Encounter Details Date Type Department Care Team Description 01/19/[address] [facility] Vernon French, for Transplantation and [place] RSumaNSuma, Clinical Regeneration in [place], [place] [address] [place] [phone] Social History Tobacco Use Types Packs/Day [...] you attend quaker or Patient refused 2021 sabianism services? Do you belong to any clubs or No 02/10/2022 organizations such as quaker groups, unions, fraZify or athletic groups, or school groups? 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 [address] [place] [phone] Virtual Visit Transplant Matthew Jerome 2 YTyrell M.D. [address] [place] [address] [phone] Office Visit Gastroenterology and [facility] 2 Hepatology Tyrell Rodriguez, Lilian [address] [place] [phone] Appointment Radiology Dcchantell Matthew 2 YTyrell M.D. [address] [place] [phone] Hospital Gastroenterology and [facility] Cirrhos is Alcoholic (HCC) 2 Encounter Hepatology Tyrell Rodriguez M.D. [address] [place] [phone] Anesthesia Event Gastroenterology and [facility]l, 2 Hepatology Ervin Burgos M.D. [address] [place] [address] [phone] Surgery Gastroenterology and [facility] ESOPHAG OGASTRODUODENOSCOPY 2 Hepatology Tyrell Rodriguez M.D. [address] [place] [phone] Scheduled Procedures Name Priority Associated Diagnoses Date/Time ESOPHAGOGASTRODUODENOSCOPY Cirrhosis Alc oholic (HCC) 03/20/2022 8:45 AM DRY KILN OPERATOR Hypertension Portal (HCC) documented as of this encounter Visit Diagnoses Not on filedocumented in this encounter Additional Health Concerns Assessment Noted Time PHQ-9 Depression Total Score: 10 10/06/2021 5:00 PM CD T documented as of this encounter Care Teams Assistant Auto Center Manager Relationship Specialty Start Date End Date Ana Red P.A.-C. PCP - General Internal Medicine 12/01/[address] [place] [address] ADI Chua [phone] [facility] 08/25/21 Ervin Schroeder MD Referring Provider Family Medicine 03/24/[address] [place] [address] documented as of this encounter
--- OUTSIDE RECORDS SUMMARY | 2022-02-14 22:01 | XMS_ITS | Encounter Summary ---
:1990 Author Organization [facility] Address [address] [place] [address] Care Team Providers Name Role Phone Ana Red P.A.-C. Primary Care Provider [phone] Encounter Details Date Type Department Care Team Description 01/27/2022 Orders Only Pharmacy Prior Auth RO Yolande Evi Loretta [phone] Social History Tobacco Use Types Packs/Day Years [...] you attend mormon or Patient refused 2021 zoroastrianism services? 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 [address] [place] [phone] Virtual Visit Transplant Matthew Jerome 2 YTyrell M.D. [address] [place] [address] [phone] Office Visit Gastroenterology and Matthew eJrome 2 Hepatology Tyrell Rodriguez M.D. [address] [place] [address] [phone] Appointment Radiology Matthew Jerome 2 YTyrell M.D. [address] [place] [phone] Hospital Gastroenterology and [place] Matthew Cirrhos is Alcoholic (HCC) 2 Encounter Hepatology Tyrell Rodriguez M.D. [address] [place] [address] [phone] Anesthesia Event Gastroenterology and [facility], 2 Hepatology Ervin Burgos M.D. [address] [place] [address] [phone] Surgery Gastroenterology and [place] Matthew ESOPHAG OGASTRODUODENOSCOPY 2 Hepatology Tyrell Rodriguez M.D. [address] [place] [address] [phone] Scheduled Procedures Name Priority Associated Diagnoses Date/Time ESOPHAGOGASTRODUODENOSCOPY Cirrhosis Alc oholic (HCC) 03/20/2022 8:45 AM DELICATESSEN GOODS STOCK CLERK Hypertension Portal (HCC) documented as of this encounter Visit Diagnoses Not on filedocumented in this encounter Additional Health Concerns Assessment Noted Time PHQ-9 Depression Total Score: 10 10/06/2021 5:00 PM CD T documented as of this encounter Care Teams Service Coordinator Elderly Facility Relationship Specialty Start Date End Date Ana Red P.A.-C. PCP - General Internal Medicine 12/01/[address] [place], [place] [address]ADI Montoya [phone] [facility] [place] [facility] 08/25/21 Ervin Schroeder MD Referring Provider Family Medicine 03/24/[address] [place] [address] ADI Mejía [phone] documented as of this encounter
--- OUTSIDE RECORDS SUMMARY | 2022-02-14 22:01 | XMS_ITS | Encounter Summary ---
:1990 Author Organization [facility] Address [address] [place] [address] Care Team Providers Name Role Phone Ana Red P.A.-C. Primary Care Provider [phone] Reason for Referral Physical Therapy (Routine) - Authorized Specialty Diagnoses / Procedures Referred By Contact Refer red To Contact Diagnoses Pain Low Back Unspecified Ana Red P.A.-C. [address] [facility] [place] [phone] Referral ID Status Reason Start Expiration Visits Visits Date Date Requested Authorized [id number] Authorized Service not 01/20/2022 01/20/20[address] [facility] Reason for Visit Reason Comments Hepatic [...] Expiration Date Visits Requ ested Visits Authorized [id number] Closed 01/13/2022 01/13/2023 1 1 Encounter Details Date Type Department Care Team Description 01/20/[address]22 Office Visit Department of [facility], Pain Low Back Unspecified (Primary Dx); Community Internal Frances PerezASuma NormanC. Cirrhosis Alcoholic (HCC); Medicine in [place] [address] [facility]; [place], [place] Long QT Syndrome; [address] [phone] Rhinitis Allergic; [place], [place] [phone] Alcohol Use Un specified With Unspecified Alcohol Induced Disorder (HCC) [phone] (Work) [phone] Social History Tobacco Use Types Packs/Day Years [...] you attend advent or Patient refused 2021 catholic services? 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 Unresponsiveness in ER. [...] post hospital follow-up. She was admitted to [facility] on 01/09/2022 and was discharged on [...] Pretransplant Recipient Evaluation Exam Deficiency Vitamin A Pbx Operator Use Of Opiate Analgesic Nicotine Dependence [...] Long QT Syndrome Patient recently discharged from [facility] due to hepatic encephalopathy. She feels [...] week. She has a EGD scheduled in [place] for early January to assess for esophageal varices. #4 Pain Low Back Unspecified We put through a physical therapy order to [facility] today for back pain. I did refill flexeril for patient to use once daily. She is also using lidocaine patches [id number] and I did send these in for her via prescription but they are going through a prior authorization process. - External referral PT (non-[place]) #5 Rhinitis Allergic She is wondering if she can use an [id number]-[id number] nasal spray for allergies. I recommended flonase. [...] Her home nurse is Misbah Crook with [facility]. Ana Red P.A.-C. Update: Notified of MOS[facility] on labs today by hospital provider. Patient has been contacted to report to the ED for albumin infusion and to hold her diuretics. documented in this encounter Plan of Treatment Upcoming Encounters Date Type Specialty Care Team Description Telemedicine Transplant 2 Appointment Radiology Matthew Jerome 2, M.B.B.S., M.D. [address] [place] [phone] Appointment Gastroenterdina and Adrianne, 2 Hepatology Yue Burciaga M.D. [address] [place] [phone] Virtual Visit Transplant Matthew Jerome 2 YTyrell M.D. [address] [place] [phone] Office Visit Gastroenterology and Matthew Jerome 2 Hepatology Tyrell Rodriguez M.D. [address] [place] [phone] Appointment Radiology LuisMatthew abdul 2 Tyrell Rodriguez M.D. [address] [place] [phone] Hospital Gastroenterology and Matthew Jerome Cirrhos is Alcoholic (HCC) 2 Encounter Hepatology Tyrell Rodriguez M.D. [address] [place] [phone] Anesthesia Event Gastroenterology and Rl, 2 Hepatology Ervin Burgos M.D. [address] [place] [address] [phone] Surgery Gastroenterology and Matthew Jerome ESOPHAG OGASTRODUODENOSCOPY 2 Hepatology Tyrell Rodriguez M.D. [address] [place] [phone] Scheduled Procedures Name Priority Associated Diagnoses Date/Time ESOPHAGOGASTRODUODENOSCOPY Cirrhosis Alc oholic (HCC) 03/20/2022 8:45 AM ELECTRICAL PROJECT ENGINEER Hypertension Portal (HCC) documented as of [...] documented as of this encounter Care Teams Fountain Clerk Relationship Specialty Start Date End Date Ana Red P.A.-C. PCP - General Internal Medicine 12/01/[address] [place] [phone] [facility] 08/25/21 Ervin Schroeder MD Referring Provider Family Medicine 03/24/[address] [place] [address] [place] [address] documented as of this encounter
--- OUTSIDE RECORDS SUMMARY | 2022-02-14 22:01 | XMS_ITS | Encounter Summary ---
:1990 Author Organization [facility] Address [address] [place] [address] Care Team Providers Name Role Phone Ana Red P.A.-C. Primary Care Provider [phone] Reason for Visit Reason Comments Form Review [facility] med rec onciliation Encounter Details Date Type Department Care Team Description 01/22/2022 Clinical Communication Department of [facility], Form Review [facility] Internal Ana, ([facility] Home Medicine in [place] [facility] [address] reconciliation) [place] [address] [facility] [address] [facility] [place] [phone] [address] (Work) [phone] Social History Tobacco Use Types Packs/Day Years [...] you attend gnosticism or Patient refused 2021 yarsanism services? Do you belong to any clubs or No 02/10/2022 organizations such as gnosticism groups, unions, [employer] or athletic groups, or school groups? How [...] at Date Recorded Female 04/12/2021 7:39 PM HIGH MAN documented as of this encounter Miscellaneous Notes Telephone Encounter - Marlene Ceron - 01/26/2022 9:07 AM CDT Form faxed back to facility and sent for scanning. Telephone Encounter - Marlene Ceron - 01/22/2022 1:21 PM CDT Form was emailed to Ana Red PA-C for electronic review/signature. CLINICAL SOCIAL WORKER: [facility] PHONE NUMBER: [phone] INFO REQUESTED: medication reconciliation INSTRUCTIONS: Fax form to [phone] documented in this encounter Plan of Treatment Upcoming Encounters Date Type Specialty Care Team Description Telemedicine Transplant 2 Appointment Radiology LuisMatthew abdul 2 YVikBLilian Bedolla [address] [place] [address] [phone] Appointment Gastroenterology demian Silver, 2 Hepatology Yue Burciaga M.D. [address] [place] [phone] Virtual Visit Transplant Matthew Jerome 2 YJoshuaBSumaBLilian Bedolla [address] [place] [phone] Office Visit Gastroenterology and Matthew Jerome 2 Hepatology Joshua RodriguezBSumaBLilian Bedolla [address] [place] [phone] Appointment Radiology LuisMatthew abdul 2 YJoshuaB.BLilian Bedolla [address] [place] [address] [phone] Hospital Gastroenterology and Matthew Jerome Cirrhos is Alcoholic (HCC) 2 Encounter Hepatology Joshua RodriguezB.BLilian Bedolla [address] [place] [phone] Anesthesia Event Gastroenterology and Rl, 2 Hepatology Ervin Burgos M.D. [address] [place] [address] [phone] Surgery Gastroenterology and Mous[place], Matthew ESOPHAG OGASTRODUODENOSCOPY 2 Hepatology YTyrell M.D. [address] [place] [phone] Scheduled Procedures Name Priority Associated Diagnoses Date/Time ESOPHAGOGASTRODUODENOSCOPY Cirrhosis Alc oholic (HCC) 03/20/2022 8:45 AM HIGH MAN Hypertension Portal (HCC) documented as of this encounter Visit Diagnoses Not on filedocumented in this encounter Additional Health Concerns Assessment Noted Time PHQ-9 Depression Total Score: 10 10/06/2021 5:00 PM CD T documented as of this encounter Care Teams Audiovisual Technician Relationship Specialty Start Date End Date Ana Red P.A.-C. PCP - General Internal Medicine 12/01/[address] [place] [phone] [facility]- [place] lab 08/25/21 Ervin Schroeder MD Referring Provider Family Medicine 03/24/[address] [place] [address] documented as of this encounter
--- OUTSIDE RECORDS SUMMARY | 2022-02-14 22:01 | XMS_ITS | Encounter Summary ---
:[address] [facility] Address [address] [place] [address] Care Team Providers Name Role Phone Ana Red P.A.-C. Primary Care Provider [phone] Encounter Details Date Type Department Care [...] you attend religion or Patient refused 2021 confucianist services? 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 [address] [place] [phone] Virtual Visit Transplant LuisNew abdular 2 YTyrell M.D. [address] [place] [address] [phone] Office Visit Gastroenterology and LuisMatthew abdul 2 Hepatology Tyrell Rodriguez M.D. [address] [place] [address] [phone] [facility]ment [facility] Tyrell Rodriguez M.D. [address] [place] [phone] Hospital Gastroenterology and [facility] Cirrhos is Alcoholic (HCC) 2 Encounter Hepatology Tyrell Rodriguez M.D. [address] [place] [phone] Anesthesia Event Gastroenterology and Rl, 2 Hepatology Ervin Burgos M.D. [address] [place] [address] [phone] Surgery Gastroenterology and [facility] ESOPHAG OGASTRODUODENOSCOPY 2 Hepatology Tyrell Rodriguez M.D. [address] [place] [phone] Scheduled Procedures Name Priority Associated Diagnoses Date/Time ESOPHAGOGASTRODUODENOSCOPY Cirrhosis Alc oholic (HCC) 03/20/2022 8:45 AM MANUFACTURING MECHANIC Hypertension Portal (HCC) documented as of [...] documented as of this encounter Care Teams Floors Buffer Relationship Specialty Start Date End Date Ana Red P.A.-C. PCP - General Internal Medicine 12/01/[address] [place] [phone] [facility] 08/25/21 Ervin Schroeder MD Referring Provider Family Medicine 03/24/[address] [place] [address] [phone] documented as of this encounter
--- OUTSIDE RECORDS SUMMARY | 2022-02-14 22:01 | XMS_ITS | Encounter Summary ---
:1990 Author Organization [facility] Address [address] [place] [address] Care Team Providers Name Role Phone Ana Red P.A.-C. Primary Care Provider [phone] Encounter Details Date Type Department Care Team Description 01/19/2022 Clinical Communication [facility] Far[facility] Perez Medicine in [address] [phone] [place], [place] [phone] (Work) [phone] Social History Tobacco Use Types Packs/Day Years [...] you attend zoroastrian or Patient refused 2021 scientology services? 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 [phone] Is it okay to leave a detailed message? yes What is the patient's request? Can she go back up to 100 mg of Lasix? Medication name/dose: furosemide (LASIX) 20 mg tablet Recent changes/new symptoms/side effects: new water retention in legs What pharmacy are you using today? [facility] Additional comments (if any): Last week patient was in [place] and they cut her furosemide (LASIX)20 mg [...] symptoms or side effects, please route to PROGRAM DIRECTOR/TRAFFIC DIRECTOR pool of prescribing provider - if new symptoms or having side effects, please transfer to off-site triage ([phone]) documented in this encounter Plan of Treatment Upcoming Encounters Date Type Specialty Care Team Description Telemedicine Transplant 2 Appointment Radiology Matthew Jerome 2 YTyrell M.D. [address] [place] [phone] Appointment Gastroenterology and Adrianne, 2 Hepatology Yue Burciaga M.D. [address] [place] [address], [place] [phone] Virtual Visit Transplant Matthew Jerome 2 Tyrell Rodriguez M.D. [address] [place] [phone] Office Visit Gastroenterology and Matthew Jerome 2 Hepatology Tyrell Rodriguez M.D. [address] [place] [phone] Appointment Radiology LuisMatthew abdul 2 Tyrell Rodriguez M.D. [address] [place] [phone] Hospital Gastroenterology and Matthew Jerome Cirrhos is Alcoholic (HCC) 2 Encounter Hepatology Tyrell Rodriguez M.D. [address] [place] [phone] Anesthesia Event Gastroenterology and Rl, 2 Hepatology Ervin Burgos M.D. [address] [place] [phone] Surgery Gastroenterology and Matthew Jerome ESOPHAG OGASTRODUODENOSCOPY 2 Hepatology Tyrell Rodriguez M.D. [address] [place] [phone] Scheduled Procedures Name Priority Associated Diagnoses Date/Time ESOPHAGOGASTRODUODENOSCOPY Cirrhosis Alc oholic (HCC) 03/20/2022 8:45 AM PROCESS CONTROL SUPERVISOR Hypertension Portal (HCC) documented as of this encounter Visit Diagnoses Not on filedocumented in this encounter Additional Health Concerns Assessment Noted Time PHQ-9 Depression Total Score: 10 10/06/2021 5:00 PM CD T documented as of this encounter Care Teams Video Operator Relationship Specialty Start Date End Date Ana Red P.A.-C. PCP - General Internal Medicine 12/01/[address] [place] [phone] [facility]- [place] lab 08/25/21 Ervin Schroeder MD Referring Provider Family Medicine 03/24/[address] [place] [phone] documented as of this encounter
--- OUTSIDE RECORDS SUMMARY | 2022-02-14 22:01 | XMS_ITS | Encounter Summary ---
:1990 Author Organization [facility] Address [address] [place] [address] Care Team Providers Name Role Phone Ana Red P.A.-C. Primary Care Provider Reason for Visit Reason Comments Med Refill Encounter Details Date Type Department Care Team Description 01/20/2022 Refill Department of [facility] Ana Red , Med Refill Internal Medicine in [place], [place] 300 [facility] 300 [facility] [place] [address] [place] [address] [phone] Social History Tobacco Use Types Packs/Day Years [...] you attend zoroastrian or Patient refused 2021 sabianist services? 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 [address] [place] [phone] Virtual Visit Transplant Matthew Jerome 2 YVikB.Kath, Lilian [address] [place] [address] [phone] Office Visit Gastroenterology and [facility] 2 Hepatology Tyrell Rodriguez M.D. [address] [place] [phone] Appointment Radiology [facility] Matthew 2 Tyrell Rodriguez M.D. [address] [place] [phone] Hospital Gastroenterology and [facility] Cirrhos is Alcoholic (HCC) 2 Encounter Hepatology Tyrell Rodriguez M.D. [address] [place] [phone] Anesthesia Event Gastroenterology and Rl, 2 Hepatology Ervin Burgos M.D. [address] [place] [phone] Surgery Gastroenterology and [facility] ESOPHAG OGASTRODUODENOSCOPY 2 Hepatology Tyrell Rodriguez M.D. [address] [place] [phone] Scheduled Procedures Name Priority Associated Diagnoses Date/Time ESOPHAGOGASTRODUODENOSCOPY Cirrhosis Alc oholic (HCC) 03/20/2022 8:45 AM TREE GIRDLER Hypertension Portal (HCC) documented as of this encounter Visit Diagnoses Not on filedocumented in this encounter Additional Health Concerns Assessment Noted Time PHQ-9 Depression Total Score: 10 10/06/2021 5:00 PM CD T documented as of this encounter Care Teams Buffer Chrome Relationship Specialty Start Date End Date Ana Red P.A.-C. PCP - General Internal Medicine 12/01/[address] [place] [address] ADI Chua [phone] [facility] 08/25/21 Ervin Schroeder MD Referring Provider Family Medicine 03/24/[address] [place] [address] ADI Mejía [phone] documented as of this encounter
--- OUTSIDE RECORDS SUMMARY | 2022-02-14 22:01 | XMS_ITS | Encounter Summary ---
:1990 Author Organization [facility] Address [address] [place] [address] Care Team Providers Name Role Phone Ana Red P.A.-C. Primary Care Provider [phone] Encounter Details Date Type Department Care Team Description 01/20/2022 Clinical Communication Department of Felicita Spicer Gastroenterology in [facility] [place], [place] [phone] [place] [address] ([facility]) [place] [phone] Social History Tobacco Use Types Packs/Day [...] you attend episcopalian or Patient refused 2021 sikh services? Do you belong to any clubs or No 02/10/2022 organizations such as episcopalian groups, unions, [employer] or athletic groups, or school groups? 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 - 01/20/2022 4:09 PM CDT Pyrometallurgical Engineer called patient and discussed the recommendation to report to the ED for management of acute kidney injury. Patient was also advised to hold her diuretics per direction from Dr. Jerome in separatemessage (see below). Patient verbalized understanding of the information provided and states she will report to [facility] ED as this is slightly closer for [...] Appointment Radiology Matthew Jerome 2, M.B.B.S., M.D. [address] [place] [phone] Appointment Gastroenterology and [place], 2 Hepatology Yue Burciaga M.D. [address] [place] [phone] Virtual Visit Transplant Matthew Jerome 2, M.B.B.S., M.D. [address] [place] [address] [phone] Office Visit Gastroenterology and Matthew Jerome 2 Hepatology Tyrell Rodriguez M.D. [address] [place] [phone] Appointment Radiology Matthew Jerome 2 YTyrell M.D. [address] [place] [phone] Hospital Gastroenterology and [facility], Matthew Cirrhos is Alcoholic (HCC) 2 Encounter Hepatology Tyrell Rodriguez, Lilian [address] [place] [phone] Anesthesia Event Gastroenterology and Rl, 2 Hepatology Ervin Burgos M.D. [address] [place] [address] [phone] Surgery Gastroenterology and [facility], [place] ESOPHAG OGASTRODUODENOSCOPY 2 Hepatology Tyrell Rodriguez, Lilian [address] [place] [phone] Scheduled Procedures Name Priority Associated Diagnoses Date/Time ESOPHAGOGASTRODUODENOSCOPY Cirrhosis Alc oholic (HCC) 03/20/2022 8:45 AM SUPERVISOR AIRCRAFT MAINTENANCE Hypertension Portal (HCC) documented as of this encounter Visit Diagnoses Not on filedocumented in this encounter Additional Health Concerns Assessment Noted Time PHQ-9 Depression Total Score: 10 10/06/2021 5:00 PM CD T documented as of this encounter Care Teams Senior Report Developer Relationship Specialty Start Date End Date Ana Red P.A.-C. PCP - General Internal Medicine 12/01/[address] [place] [address] [place] [phone] [facility]- [place] [facility] 08/25/21 Ervin Schroeder MD Referring Provider Family Medicine 03/24/[address] [place] [address] [place] [address] documented as of this encounter
--- OUTSIDE RECORDS SUMMARY | 2022-02-14 22:01 | XMS_ITS | Encounter Summary ---
:1990 Author Organization [facility] Address [address] [place] [address] Care Team Providers Name Role Phone Ana Red P.A.-C. Primary Care Provider [phone] Encounter Details Date Type Department Care Team Description 01/20/2022 Hospital Encounter Department of Digna Campbell Hepati c Failure Laboratory Medicine Lilian Schaefer Unspecified Without in [place], [address] [facility] Coma (HCC) [place], [place] [address] [address] [place] [phone] (Work) [phone] Social History Tobacco Use Types Packs/Day Years [...] you attend synagogue or Patient refused 2021 buddhist services? 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 lactulose (CHRONULAC) 20 Take 30 mL (20 g 8100 mL 3 01/2901/29/2022 gram/30 mL solution total) by mouth [...] Appointment Radiology Matthew Jerome 2 YJoshuaB.B.Kath, Lilian [address] [place] [phone] Appointment Gastroenterology and [place], 2 Hepatology Yue Burciaga M.D. [address] [place] [phone] Virtual Visit Transplant Matthew Jerome 2 Y M.B.B.SLilian Moise [address] [place] [address] [phone] Office Visit Gastroenterology and Matthew Jerome 2 Hepatology Y M.B.B.SLilian Moise [address] [place] [phone] Appointment Radiology Matthew Jerome 2 Y, M.B.B.SLilian Moise [address] [place] [address] [phone] Hospital Gastroenterology and [facility] Cirrhos is Alcoholic (HCC) 2 Encounter Hepatology Tyrell Rodriguez M.D. [address] [place] [phone] Anesthesia Event Gastroenterology and Lr, 2 Hepatology Ervin Burgos M.D. [address] [place] [phone] Surgery Gastroenterology and [facility] ESOPHAG OGASTRODUODENOSCOPY 2 Hepatology Tyrell Rodriguez M.D. [address] [place] [phone] Scheduled Procedures Name Priority Associated Diagnoses Date/Time ESOPHAGOGASTRODUODENOSCOPY Cirrhosis Alc oholic (HCC) 03/20/2022 8:45 AM CLEANER INDUSTRIAL Hypertension Portal (HCC) documented as of this [...] with Differential, Blood (01/20/2022 12:07 PM CDT) [facility] Method Time Signature Hemoglobin 7.4 (L) 11.6 [...] Code Phon e Number [facility]- [address] [place] [address] [facility] [address] [place] [address] System in [place] [address] (ABNORMAL) Comprehensive Metabolic Panel [...] Phon e Number [facility]- [address] [place] [address] [facility] [place] [address] System in [place] [address] documented in this encounter Visit Diagnoses Diagnosis Cirrhosis Alcoholic (HCC) Hypertension Portal (HCC) Hepatic Failure 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 PCP - General Internal Medicine 12/01/[address] [place] [phone] [facility]- [place] lab 08/25/21 Ervin Schroeder MD Referring Provider Family Medicine 03/24/21 1980 [facility] [place] [address] documented as of this encounter
--- OUTSIDE RECORDS SUMMARY | 2022-02-14 22:01 | XMS_ITS | Encounter Summary ---
:1990 Author Organization [facility] Address [address] [place] [address] Care Team Providers Name Role Phone Ana Red P.A.-C. Primary Care Provider [phone] Encounter Details Date Type Department Care Team Description 01/20/2022 Orders Only Pharmacy Prior Auth Lina Raphael [phone] Social History Tobacco Use Types Packs/Day Years [...] you attend yarsanism or Patient refused 2021 bahai services? 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 [address] [place] [phone] Appointment Gastroenterology and [place], 2 Hepatology Yue Burciaga M.D. [address] [place] [phone] Virtual Visit Transplant Matthew Jerome 2, M.B.B.S., M.D. [address] [place] [address] [phone] Office Visit Gastroenterology and Matthew Jerome 2 Hepatology Tyrell Rodriguez M.D. [address] [place] [phone] Appointment Radiology Queenie Matthew 2 YTyrell, Lilian [address] [place] [phone] Hospital Gastroenterology and [facility] Matthew Cirrhos is Alcoholic (HCC) 2 Encounter Hepatology Tyrell Rodriguez M.D. [address] [place] [phone] Anesthesia Event Gastroenterology and [facility], 2 Hepatology Ervin Burgos M.D. [address] [place] [address] [phone] Surgery Gastroenterology and [facility] Matthew ESOPHAG OGASTRODUODENOSCOPY 2 Hepatology Tyrell Rodriguez M.D. [address] [place] [phone] Scheduled Procedures Name Priority Associated Diagnoses Date/Time ESOPHAGOGASTRODUODENOSCOPY Cirrhosis Alc oholic (HCC) 03/20/2022 8:45 AM OFFICE CLIN ASST Hypertension Portal (HCC) documented as of this encounter Visit Diagnoses Not on filedocumented in this encounter Additional Health Concerns Assessment Noted Time PHQ-9 Depression Total Score: 10 10/06/2021 5:00 PM CD T documented as of this encounter Care Teams Metal Tank Erector Relationship Specialty Start Date End Date Ana Red P.A.-C. PCP - General Internal Medicine 12/01/[address] [place] [address] ADI Chua [phone] [facility]- [place] lab 08/25/21 Ervin Schroeder MD Referring Provider Family Medicine 03/24/[address] [place] [address] ADI Mejía [phone] documented as of this encounter
--- OUTSIDE RECORDS SUMMARY | 2022-02-14 22:01 | XMS_ITS | Encounter Summary ---
:1990 Author Organization [facility] Address [address] [place] [address] Care Team Providers Name Role Phone Ana Red SumaASumaC. Primary Care Provider [phone] Encounter Details Date Type Department Care Team Description 01/19/2022 Orders Only Department of Counts Include 234 Beds At [facility] Ana Red , Internal Medicine in [place], [place] [address] [facility] [address] 300 [facility] [place] [phone] (Wo rk) Social History Tobacco [...] you attend latter-day or Patient refused 2021 anabaptist services? 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 [address] [place] [phone] Virtual Visit Transplant Matthew Jerome 2 YKishore.B.SSuma, Lilian [address] [place] [address] [phone] Office Visit Gastroenterology and [facility] 2 Hepatology Tyrell Rodriguez M.D. [address] [place] [address] [phone] Appointment Radiology [facility] Matthew 2 YTyrell M.D. [address] [place] [address] [phone] Hospital Gastroenterology and [facility] Cirrhos is Alcoholic (HCC) 2 Encounter Hepatology Tyrell Rodriguez M.D. [address] [place] [phone] Anesthesia Event Gastroenterology and [place]l, 2 Hepatology Ervin Burgos M.D. [address] [place] [phone] Surgery Gastroenter[facility] and [facility] ESOPHAG OGASTRODUODENOSCOPY 2 Hepatology Tyrell Rodriguez M.D. [address] [place] [address] [phone] Scheduled Procedures Name Priority Associated Diagnoses Date/Time ESOPHAGOGASTRODUODENOSCOPY Cirrhosis Alc oholic (HCC) 03/20/2022 8:45 AM SUPERVISOR FLESHING Hypertension Portal (HCC) documented as of this encounter Visit Diagnoses Not on filedocumented in this encounter Additional Health Concerns Assessment Noted Time PHQ-9 Depression Total Score: 10 10/06/2021 5:00 PM CD T documented as of this encounter Care Teams Assistant Store Leader Relationship Specialty Start Date End Date Ana Red P.A.-C. PCP - General Internal Medicine 12/01/[address] [place] [address] [place] [phone] [facility]- [place] lab 08/25/21 Ervin Schroeder MD Referring Provider Family Medicine 03/24/[address] [place] [address] documented as of this encounter
--- OUTSIDE RECORDS SUMMARY | 2022-02-14 22:01 | XMS_ITS | Encounter Summary ---
:1990 Author Organization [facility] Address [address] [place] [address] Care Team Providers Name Role Phone Ana Red P.A.-C. 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 [address] [place] [phone] Virtual Visit Transplant LuisNew abdular 2 YTyrell M.D. [address] [place] [address] [phone] Office Visit Gastroenterology and LuisMatthew abdul 2 Hepatology Tyrell Rodriguez M.D. [address] [place] [address] [phone] Appointment [facility] Matthew 2 Tyrell Rodriguez M.D. [address] [place] [phone] Hospital Gastroenterology and [facility] Cirrhos is Alcoholic (HCC) 2 Encounter Hepatology Tyrell Rodriguez M.D. [address] [place] [phone] Anesthesia Event Gastroenterology and [place]l, 2 Hepatology Ervin Burgos M.D. [address] [place] [address] [phone] Surgery Gastroenterology and [facility] ESOPHAG OGASTRODUODENOSCOPY 2 Hepatology Tyrell Rodriguez M.D. [address] [place] [phone] Scheduled Procedures Name Priority Associated Diagnoses Date/Time ESOPHAGOGASTRODUODENOSCOPY Cirrhosis Alc oholic (HCC) 03/20/2022 8:45 AM LEAD RADIATION THERAPIST Hypertension Portal (HCC) documented as of [...] documented as of this encounter Care Teams Bail Attacher Relationship Specialty Start Date End Date Ana Red P.A.-C. PCP - General Internal Medicine 12/01/[address] [place] [phone] [facility]- [place] lab 08/25/21 Ervin Schroeder MD Referring Provider Family Medicine 03/24/[address] [place], [place] [address] [address] documented as of this encounter
--- OUTSIDE RECORDS SUMMARY | 2022-02-14 22:01 | XMS_ITS | Encounter Summary ---
:1990 Author Organization [facility] Address [address] [place] [address] Care Team Providers Name Role Phone Ana Red P.A.-C. Primary Care Provider [phone] Encounter Details Date Type Department Care Team Description 01/26/2022 Orders Only Pharmacy Prior Auth Nicole Briscoe [phone] Social History Tobacco Use Types Packs/Day Years [...] you attend taoism or Patient refused 2021 holiness services? 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 [address] [place] [phone] Virtual Visit Transplant Matthew Jerome 2 YTyrell M.D. [address] [place] [address] [phone] Office Visit Gastroenterology and Matthew Jerome 2 Hepatology Tyrell Rodriguez M.D. [address] [place] [address] [phone] Appointment Radiology Matthew Jerome 2 YTyrell M.D. [address] [place] [phone] Hospital Gastroenterology and [place] Matthew Cirrhos is Alcoholic (HCC) 2 Encounter Hepatology Tyrell Rodriguez M.D. [address] [place] [address] [phone] Anesthesia Event Gastroenterology and [facility], 2 Hepatology Ervin Burgos M.D. [address] [place] [address] [phone] Surgery Gastroenterology and [place] Matthew ESOPHAG OGASTRODUODENOSCOPY 2 Hepatology Tyrell Rodriguez M.D. [address] [place] [address] [phone] Scheduled Procedures Name Priority Associated Diagnoses Date/Time ESOPHAGOGASTRODUODENOSCOPY Cirrhosis Alc oholic (HCC) 03/20/2022 8:45 AM SCHOOL COUNSELOR Hypertension Portal (HCC) documented as of this encounter Visit Diagnoses Not on filedocumented in this encounter Additional Health Concerns Assessment Noted Time PHQ-9 Depression Total Score: 10 10/06/2021 5:00 PM CD T documented as of this encounter Care Teams Typesetter Perforator Operator Relationship Specialty Start Date End Date Ana Red P.A.-C. PCP - General Internal Medicine 12/01/[address] [place], [place] [address]AD[place] Montoya [phone] [facility]- [place] lab 08/25/21 Ervin Schroeder MD Referring Provider Family Medicine 03/24/[address] [place] [address] ADI Mejía [phone] documented as of this encounter
--- OUTSIDE RECORDS SUMMARY | 2022-02-14 22:02 | XMS_ITS | Encounter Summary ---
:1990 Author Organization [facility] Address [address] [place] [address] Care Team Providers Name Role Phone Ana Red P.A.-C. Primary Care Provider [phone] Encounter Details Date Type Department Care Team Description 01/16/2022 Clinical Communication Division of Digna Campbell Gastroenterology in Lilian Schaefer [place], [place] [address] [facility] [address] [place] [phone] Social History Tobacco Use Types Packs/Day Years [...] you attend holiness or Patient refused 2021 religion services? Do you belong to any clubs or No 02/10/2022 organizations such as holiness groups, unions, [employer] or athletic groups, or school groups? 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 [address] [place] [phone] Virtual Visit Transplant Matthew Jerome 2 YJoshuaB.BLilian Bedolla [address] [place] [address] [phone] Office Visit Gastroenterology and [facility] Matthew 2 Hepatology Tyrell Rodriguez M.D. [address] [place] [phone] Appointment Radiology Queenie Matthew 2 YTyrell M.D. [address] [place] [phone] Hospital Gastroenterology and [facility] Cirrhos is Alcoholic (HCC) 2 Encounter Hepatology Tyrell Rodriguez M.D. [address] [place] [phone] Anesthesia Event Gastroenterology and [facility], 2 Hepatology Ervin Burgos M.D. [address] [place] [address] [phone] Surgery Gastroenterology and [facility] ESOPHAG OGASTRODUODENOSCOPY 2 Hepatology Tyrell Rodriguez M.D. [address] [place] [phone] Scheduled Procedures Name Priority Associated Diagnoses Date/Time ESOPHAGOGASTRODUODENOSCOPY Cirrhosis Alc oholic (HCC) 03/20/2022 8:45 AM PHONE CIRCUIT OPERATOR Hypertension Portal (HCC) documented as of this encounter Visit Diagnoses Not on filedocumented in this encounter Additional Health Concerns Assessment Noted Time PHQ-9 Depression Total Score: 10 10/06/2021 5:00 PM CD T documented as of this encounter Care Teams Optical Glass Inspector Relationship Specialty Start Date End Date Ana Red P.A.-C. PCP - General Internal Medicine 12/01/[address] [place] [address] ADI Chua [phone] [facility]- [place] lab 08/25/21 Ervin Schroeder MD Referring Provider Family Medicine 03/24/[address] [place] [address] documented as of this encounter
--- OUTSIDE RECORDS SUMMARY | 2022-02-14 22:02 | XMS_ITS | Encounter Summary ---
:1990 Author Organization [facility] Address [address] [place] [address] Care Team Providers Name Role Phone Ana Red P.A.-C. Primary Care Provider [phone] Reason for Visit Reason Comments Post Hospital Follow-up Encounter Details Date Type Department Care Team Description 01/15/2022 Clinical Communication Department of [facility] Internal Ciara Johnson RSumaNSuma Follow-up Medicine in [address] [place] [phone] 300 [facility] [phone] [place], [place] (Work) [phone] Social History Tobacco Use [...] you attend mormon or Patient refused 2021 samaritan services? Do [...] or the highest technical, or vocational p RhinoCyteram degree you have received? 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 Patient was dismissed from the hospital on 01/14/22 at 1748. documented in this encounter Plan of Treatment Upcoming Encounters Date Type Specialty Care Team Description Telemedicine Transplant 2 Appointment Radiology Matthew Jerome 2 Joshua RodriguezB.B.SSuma, Lilian [address] [place] [phone] Appointment Gastroenterology and [place], 2 Hepatology Yue Burciaga M.D. [address] [place] [phone] Virtual Visit Transplant Matthew Jerome 2 Joshua RodriguezB.B.SSuma, Lilian [address] [place] [phone] Office Visit Gastroenterology and Matthew Jerome 2 Hepatology Joshua RodriguezB.B.SSuma, Lilian [address] [place] [address] [phone] Appointment Radiology Matthew Jerome 2 YJoshuaB.B.SSuma, Lilian [address] [place] [phone] Hospital Gastroenterology and [place]ie, Matthew Cirrhos is Alcoholic (HCC) 2 Encounter Hepatology Tyrell Rodriguez M.D. [address] [place] [phone] Anesthesia Event Gastroenterology and [place], 2 Hepatology Ervin Burgos M.D. [address] [place] [address] [phone] Surgery Gastroenterology and [facility] ESOPHAG OGASTRODUODENOSCOPY 2 Hepatology Tyrell Rodriguez M.D. [address] [place] [phone] Scheduled Procedures Name Priority Associated Diagnoses Date/Time ESOPHAGOGASTRODUODENOSCOPY Cirrhosis Alc oholic (HCC) 03/20/2022 8:45 AM PAYROLL TAX SPECIALIST Hypertension Portal (HCC) documented as of this encounter Visit Diagnoses Not on filedocumented in this encounter Additional Health Concerns Assessment Noted Time PHQ-9 Depression Total Score: 10 10/06/2021 5:00 PM CD T documented as of this encounter Care Teams Iron Handler Relationship Specialty Start Date End Date Ana Red P.A.-C. PCP - General Internal Medicine 12/01/[address] [place] [address] [facility] [place] [phone] [facility]- [place] lab 08/25/21 Ervin Schroeder MD Referring Provider Family Medicine 03/24/[address] [place] [address] [place] [address] documented as of this encounter
--- OUTSIDE RECORDS SUMMARY | 2022-02-14 22:02 | XMS_ITS | Encounter Summary ---
:1990 Author Organization [facility] Address [address] [place] [address] Care Team Providers Name Role Phone Ana Red P.A.-C. Primary Care Provider [phone] Reason for Visit Reason Comments Appointment January follow up Encounter Details Date Type Department Care Team Description 01/14/2022 Clinical Ramirez Huerta, [facility] Communication Center for Adeline Jagdeep (January laci Wilson, Ph.D. up) Clinical Regeneration [address] [place] [address] in [facility] [phone] [place] [address] [place], [place] (Work) [phone] Social History Tobacco Use Types Packs/Day Years [...] you attend anglican or Patient refused 2021 faith services? 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 documented in this encounter Plan of Treatment Upcoming Encounters Date Type Specialty Care Team Description Telemedicine Transplant 2 Appointment Radiology Matthew Jerome 2 YTyrell, M.D. [facility] [place] [address] Appointment Gastroenterology and Adrianne, 2 Hepatology Yue Burciaga M.D. [address] [place] [address] Virtual Visit Transplant Matthew Jerome 2 Tyrell Rodriguez M.D. [address] [place] [phone] Office Visit Gastroenterology and Matthew Jerome 2 Hepatology Tyrell Rodriguez M.D. [address] [place] [phone] Appointment Radiology LuisMatthew abdul 2 Tyrell Rodriguez M.D. [address] [place] [phone] Hospital Gastroenterology and Matthew Jerome Cirrhos is Alcoholic (HCC) 2 Encounter Hepatology Tyrell Rodriguez M.D. [address] [place] [phone] Anesthesia Event Gastroenterology and Rl, 2 Hepatology Ervin Burgos M.D. [address] [place] [phone] Surgery Gastroenterology and Matthew Jerome ESOPHAG OGASTRODUODENOSCOPY 2 Hepatology Vik RodriguezBLilian Bedolla [address] [place] [phone] Scheduled Procedures Name Priority Associated Diagnoses Date/Time ESOPHAGOGASTRODUODENOSCOPY Cirrhosis Alc oholic (HCC) 03/20/2022 8:45 AM FINE DINING SERVER Hypertension Portal (HCC) documented as of this encounter Visit Diagnoses Not on filedocumented in this encounter Additional Health Concerns Assessment Noted Time PHQ-9 Depression Total Score: 10 10/06/2021 5:00 PM CD T documented as of this encounter Care Teams Transmission System Operator Relationship Specialty Start Date End Date Ana Red P.A.-C. PCP - General Internal Medicine 12/01/[address] [place] [phone] [facility]- [place] [facility] 08/25/21 Ervin Schroeder MD Referring Provider Family Medicine 03/24/[address] [place] [address] documented as of this encounter
--- OUTSIDE RECORDS SUMMARY | 2022-02-14 22:02 | XMS_ITS | Encounter Summary ---
:1990 Author Organization [facility] Address [address] [place] [address] Care Team Providers Name Role Phone Ana Red P.A.-C. Primary Care Provider [phone] Encounter Details Date Type Department Care Team Description 01/13/2022 Clinical Communication Division of Digna Campbell Gastroenterology in Lilian Schaefer [place], [place] [address] [facility] [address] [place] [phone] Social History Tobacco Use Types Packs/Day Years [...] you attend samaritan or Patient refused 2021 moravian services? Do you belong to any clubs or No 02/10/2022 organizations such as samaritan groups, unions, [employer] or athletic groups, or school groups? 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 [address] [place] [phone] Virtual Visit Transplant Queenie Matthew 2 Tyrell Rodriguez M.D. [address] [place] [phone] Office Visit Gastroenterology and New Jeromear 2 Hepatology Tyrell Rodriguez M.D. [address] [place] [phone] Appointment Radiology Matthew Jerome 2 Tyrell Rodriguez M.D. [address] [place] [phone] Hospital Gastroenterology and Matthew Jerome Cirrhos is Alcoholic (HCC) 2 Encounter Hepatology Tyrell Rodriguez M.D. [address] [place] [phone] Anesthesia Event Gastroenterology and Rl, 2 Hepatology Ervin Burgos M.D. [address] [place] [phone] Surgery Gastroenterology and Matthew Jerome ESOPHAG OGASTRODUODENOSCOPY 2 Hepatology Tyrell Rodriguez M.D. [address] [place] [phone] Scheduled Procedures Name Priority Associated Diagnoses Date/Time ESOPHAGOGASTRODUODENOSCOPY Cirrhosis Alc oholic (HCC) 03/20/2022 8:45 AM TAKE OFF MAN Hypertension Portal (HCC) documented as of this encounter Visit Diagnoses Not on filedocumented in this encounter Additional Health Concerns Assessment Noted Time PHQ-9 Depression Total Score: 10 10/06/2021 5:00 PM CD T documented as of this encounter Care Teams Arch Cushion Skiving Machine Operator Relationship Specialty Start Date End Date Ana Red P.A.-C. PCP - General Internal Medicine 12/01/[address] [place] [phone] [facility]- [place] [facility] 08/25/21 Ervin Schroeder MD Referring Provider Family Medicine 03/24/[address] [place] [phone] documented as of this encounter
--- OUTSIDE RECORDS SUMMARY | 2022-02-14 22:02 | XMS_ITS | Encounter Summary ---
:1990 Author Organization [facility] Address [address] [place] [address] Care Team Providers Name Role Phone Ana Red P.A.-C. Primary Care Provider [phone] Reason for Visit Reason Comments Phone Contact Encounter Details Date Type Department Care Team Description 01/15/2022 Clinical Ramirez Womack, Phone Contact Communication Center for Parris Transplantation and Clinical Regeneration in [facility] pedro [address] [place] [address] Social History Tobacco Use Types Packs/Day Years [...] you attend presybeterian or Patient refused 2021 nondenominational services? Do you belong to any clubs or No 02/10/2022 organizations such as presybeterian groups, unions, [employer] or athletic groups, or school groups? 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 Pt oked confirming by OM. Telephone Encounter - Parris Del Rio - 01/15/2022 1:46 PM CDT Pre- Patient returning a call to schedule her appts. She can be reached at [phone]. documented in this encounter Plan of Treatment Upcoming Encounters Date Type Specialty Care Team Description Telemedicine Transplant 2 Appointment Radiology Matthew Jerome 2 Y, MLilian Perez [address] [place] [phone] Appointment Gastroenterology and Adrianne, 2 Hepatology Yue Burciaga M.D. [address] [place] [phone] Virtual Visit Transplant Matthew Jerome 2 Tyrell Rodriguez M.D. [address] [place] [phone] Office Visit Gastroenterology and New Jeromear 2 Hepatology Tyrell Rodriguez M.D. [address] [place] [phone] Appointment Radiology Matthew Jerome 2 YTyrell M.D. [address] [place] [phone] Hospital Gastroenterology and Matthew Jerome Cirrhos is Alcoholic (HCC) 2 Encounter Hepatology Tyrell Rodriguez M.D. [address] [place] [phone] Anesthesia Event Gastroenterology and Rl, 2 Hepatology Ervin Burgos M.D. [address] [place] [phone] Surgery Gastroenterology and Matthew Jerome ESOPHAG OGASTRODUODENOSCOPY 2 Hepatology Vik RodriguezBGraeme, Lilian [address] [place] [phone] Scheduled Procedures Name Priority Associated Diagnoses Date/Time ESOPHAGOGASTRODUODENOSCOPY Cirrhosis Alc oholic (HCC) 03/20/2022 8:45 AM ELECTRICAL INSTRUMENTATION TECHNICIAN Hypertension Portal (HCC) documented as of this encounter Visit Diagnoses Not on filedocumented in this encounter Additional Health Concerns Assessment Noted Time PHQ-9 Depression Total Score: 10 10/06/2021 5:00 PM CD T documented as of this encounter Care Teams Sterile Processing Technician Relationship Specialty Start Date End Date Ana Red P.A.-C. PCP - General Internal Medicine 12/01/[address] [place] [phone] [facility]- [place] lab 08/25/21 Ervin Schroeder MD Referring Provider Family Medicine 03/24/[address] [place] [address] documented as of this encounter
--- OUTSIDE RECORDS SUMMARY | 2022-02-14 22:02 | XMS_ITS | Encounter Summary ---
:1990 Author Organization [facility] Address [address] [place] [address] Care Team Providers Name Role Phone Ana Red P.A.-C. Primary Care Provider Reason for Visit Reason Comments Phone Contact Appointment LABs Encounter Details Date Type Department Care Team Description 01/16/2022 Clinical Ramirez Barajas, Phone Contact; Communication Center for Mitchell Rowland (Jagdeep Izaguirre) Transplantation and Lilian, Ph.D. Clinical [facility] [address] [place] [address] [address] [facility] [phone] Social History Tobacco Use Types Packs/Day Years [...] attend oriental orthodox or Patient refused 2021 anabaptist services? Do [...] technical, or vocational p [facility] degree you have received? 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 OM sent to confirm appts. Telephone Encounter [...] labs. She will be completing some in [place] on 01/20. Could we get orders for [place] for the labs that she needs to complete? PASS: Please link new orders to 01/20 labs and add urine as close as possible. Thank you in advance documented in this encounter Plan of Treatment Upcoming Encounters Date Type Specialty Care Team Description Telemedicine Transplant 2 Appointment Radiology Matthew Jerome 2 YTyrell M.D. [address] [place] [address] Appointment Gastroenterology demian Silver, 2 Hepatology Yue Burciaga M.D. [address] [place] [address] Virtual Visit Transplant Matthew Jerome 2 YTyrell M.D. [address] [place] [phone] Office Visit Gastroenterology and Matthew Jerome 2 Hepatology Tyrell Rodriguez M.D. [address] [place] [phone] Appointment Radiology Matthew Jerome 2 Tyrell Rodriguez M.D. [address] [place] [phone] Hospital Gastroenterology and [place] Matthew Cirrhos is Alcoholic (HCC) 2 Encounter Hepatology Tyrell Rodriguez M.D. [address] [place] [phone] Anesthesia Event Gastroenterology and Rl, 2 Hepatology Ervin Burgos M.D. [address] [place] [phone] Surgery Gastroenterology and Queenie Matthew ESOPHAG OGASTRODUODENOSCOPY 2 Hepatology Tyrell Rodriguez M.D. [address] [place] [phone] Scheduled Procedures Name Priority Associated Diagnoses Date/Time ESOPHAGOGASTRODUODENOSCOPY Cirrhosis Alc oholic (HCC) 03/20/2022 8:45 AM AGRICULTURIST Hypertension Portal (HCC) documented as of this encounter Visit Diagnoses Not on filedocumented in this encounter Additional Health Concerns Assessment Noted Time PHQ-9 Depression Total Score: 10 10/06/2021 5:00 PM CD T documented as of this encounter Care Teams Step Finisher Relationship Specialty Start Date End Date Ana Red P.A.-C. PCP - General Internal Medicine 12/01/[address] [place] [address] [facility] [place] [phone] [facility] 08/25/21 Ervin Schroeder MD Referring Provider Family Medicine 03/24/[address] [place] [address] [place], [place] [id number] documented as of this encounter
--- OUTSIDE RECORDS SUMMARY | 2022-02-14 22:02 | XMS_ITS | Encounter Summary ---
:1990 Author Organization [facility] Address [address] [place] [address] Care Team Providers Name Role Phone Ana Red P.A.-C. Primary Care Provider [phone] Encounter Details Date Type Department Care Team Description 01/17/2022 Clinical Communication Division of Mike, Gastroenterology in [place]ian Mueller[place], [place] Ph.D. [address] [facility] [address] [place] [address] [place], [place] [phone] Social History Tobacco Use Types Packs/Day Years [...] you attend mormon or Patient refused 2021 restorationism services? Do you belong to any clubs or No 02/10/2022 organizations such as mormon groups, unions, fra[employer]feed[employer] or athletic groups, or school groups? 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 - 01/17/2022 6:56 PM CDT Paged by cam milling machine operator regarding nose bleed for the last [...] 2 Appointment Radiology Queenie Matthew 2 Tyrell Rodriguez, Lilian [address] [place] [phone] Appointment Gastroenterology demian Silver 2 Hepatology Yue Burciaga M.D. [address] [place] [phone] Virtual Visit Transplant Luischantell Matthew 2 Tyrell Rodriguez M.D. [address] [place] [phone] Office Visit Gastroenterology and QueenieNewar 2 Hepatology Tyrell Rodriguez M.D. [address] [place] [phone] Appointment Radiology Queenie Matthew 2 YTyrell M.D. [address] [place] [phone] Hospital Gastroenterology and QueenieMatthew Cirrhos is Alcoholic (HCC) 2 Encounter Hepatology Vik RodriguezBLilian Bedolla [address] [place] [phone] Anesthesia Event Gastroenterology and Rl 2 Hepatology Ervin uBrgos M.D. [address] [place] [phone] 11/18/202 Surgery Gastroenterology and Mousa, Matthew ESOPHAG OGASTRODUODENOSCOPY 2 Hepatology Tyrell Rodriguez M.D. [address] [place] [phone] Scheduled Procedures Name Priority Associated Diagnoses Date/Time ESOPHAGOGASTRODUODENOSCOPY Cirrhosis Alc oholic (HCC) 03/20/2022 8:45 AM PHARMACY TECH Hypertension Portal (HCC) documented as of this encounter Visit Diagnoses Not on filedocumented in this encounter Additional Health Concerns Assessment Noted Time PHQ-9 Depression Total Score: 10 10/06/2021 5:00 PM CD T documented as of this encounter Care Teams Post Tronic Machine Operator Relationship Specialty Start Date End Date Ana Red P.A.-C. PCP - General Internal Medicine 12/01/[address] [place] [phone] [facility]- [place] lab 08/25/21 Ervin Schroeder MD Referring Provider Family Medicine 03/24/[address] [place] [address] documented as of this encounter
--- OUTSIDE RECORDS SUMMARY | 2022-02-14 22:02 | XMS_ITS | Encounter Summary ---
:1990 Author Organization [facility] Address [address] [place] [address] Care Team Providers Name Role Phone Ana Red P.A.-C. Primary Care Provider Reason for Referral Physical Therapy (Routine) - Authorized Specialty Diagnoses / Procedures Referred By Contact Refer red To Contact Diagnoses Pain Low Back Unspecified Colleen Crowell M.D., M.P.H. [address] [place] [address] [phone] Referral ID Status Reason Start Expiration Visits Visits Date Date Requested Authorized [id number] Authorized Patient 01/14/2022 01/14/2023 1 1 Preference Medication Prior Authorization - Closed Specialty Diagnoses / Procedures Referred By Contact Refer red To Contact Colleen Crowell M.D ., M.P.H. [address] [place] [address] [phone] Referral ID Status Reason Start Date Expiration Date Visits Requ ested Visits Authorized [id number] Closed 1 1 Outpatient (Routine) - Authorized Specialty Diagnoses / Procedures Referred By Contact Refer red To Contact Diagnoses Pain Low Back Unspecified Colleen Crowell M.D., M.P.H. [address] [place] [phone] Referral ID Status Reason Start Date Expiration Date Visits V isits Requested Authorized [id number] Authorized 01/14/2022 01/14/2023 1 1 Reason for Visit Reason Comments Abdominal Pain Auth/Cert Specialty Diagnoses / Procedures Referred By Contact Refer red To Contact Diagnoses Hepatic Encephalopathy Without Coma (HCC) Procedures ETU Referral ID Status Reason Start Date Expiration Date Visits Requ ested Visits Authorized [id number] 1 1 Encounter Details Date Type Department Care Team Description 01/09/2022 - [facility] Ludwin Garcia Jr., M.D. [address] [place] [address] [phone] Hepatic Encephalopathy Without Coma (HCC ) (Primary Dx); [facility] [address] [place] [address] [phone] Deficiency Vitamin A; [facility], Sree Bach M.D. [address] [place] [phone] Cirrhosis Alcoholic (HCC); [facility], Pain Low B ack Unspecified; Fifth Floor Decline Functional Status [R 53.81 (ICD-10-CM)] [address] [place] [address] [phone] Social History Tobacco Use Types Packs/Day Years [...] you attend sabianist or Patient refused 2021 judaism services? 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 Discharge Provider: Sree Bach M.D. Primary Team: [facility] Gastroenterology B Primary Care Providers: Ana Red P.A.-C. (General) [address] [place] [phone] Primary Care Provider Primary Care Provider Other [...] management per Radhames Neumann, Ph.D., L.P. in [place] [facility] (Pain Rehabilitation), 10/06/2021: - virtual [...] Community Internal Medicine 01/20/2022 11:30 AM LAB [facility] Laboratory Medicine 01/27/2022 8:00 AM TXP [...] CDT You were discharged from the [facility] Gastroenterology B Service. Please identify this service [...] bed and don with modified independence using grain cleaner. Discussed use of grain cleaner for donning/doffing pants and socks. Offered to [...] 07/03 Months Reversed: 07/03 30 seconds: 06/05 Maio-Onuk-Wwao: 0 Go/No-Go: 07/03 Address Recall: 07/03 Total Score: 25/30 (Administered 01/14/2022) RECOMMENDATIONS: Discharge Therapy Needs - OT: Ongoing skilled occupational therapy Level of Care Needed - OT: Assistance with toilet/shower transfers, Assistance with dressing, Assistance with showering/bathing, Assistance with meal preparation, Assistance with financial assistance specialist, Assistance with transportation, Assistance with housekeeping, Assistance with shopping Discharge information provided on 01/14/2022 Contact information: [facility], [address], AttachmentsThe following attachments cannot be sent through Care Everywhere. Acetaminophen (By mouth) (Bahamian)Ciprofloxacin (By mouth) (Bahamian)Lidocaine Patch (On the skin) (Bahamian)Prochlorperazine (By mouth) (Bahamian) Cholecalciferol (By mouth) (Bahamian)documented in this encounter Medications [...] Jurado M.D. - 01/12/2022 3:17 PM CDT [facility] Gastroenterology B PROGRESS NOTE SUBJECTIVE Ms. Carias [...] PLAN Ms. Carias is hospitalized on [facility] Gastroenterology B for evaluation and management of [...] will discuss SBP ppx with her outpatient quiller hand # acute blood loss anemia, improved - [...] with Lobito GONZALES) Surrogate Decision Maker: Significant other, Lobito Disposition: home, planning for discharge on 01/13 [...] along with GI B service Sera Antonio PharmJules, R.Ph. - 01/11/2022 8:15 AM CDT Images [...] Kit Bellamy - 01/09/2022 1:52 PM CDT [facility] Gastroenterology B Admission Note SUBJECTIVE CHIEF COMPLAINT [...] evaluation. She was previously admitted to the [facility] GI service during the month of October [...] any GI bleeding. Patient presented to the [facility] ED with worsening abdominal distension over the [...] started to seem confused, wanting to go [employer], suddenly awakening every hour saying [...] 31 y.o. female who is hospitalized on [facility] Gastroenterology B for evaluation and management of [...] Maker: AriadnaLobito Disposition: Home Kit Bellamy, MS4 [facility] Cornelia Jurado M.D. - 01/09/2022 12:08 PM [...] PLAN Ms. Carias is hospitalized on [facility] Gastroenterology B for evaluation and management of [...] AMS, concern for safe swallow. May need CONSTRUCTION ACCOUNTANT eval - monitor renal function and UOP [...] Treatment General Acute Onset Date: 01/09/22 Payor: [facility] [place] / Plan[place] [facility] [place] REST[place] PLAN / Product [...] ADL Assistance: Required assistance ADL Assistance Comments: Loydiennaveen helps her to and from the bathroom when needed, independent with dressing, but has to do so sitting or lying, toileting and bathing independent but has assist gettting to toilet or into tub shower. This started about 5 weeks ago when she was in the shower and felt her back spasm. IADL/Homemaking Assistance: Required assistance IADL/Homemaking Assistance Comments: Loydiennaveen assists with meal preparation and housekeeping. Able to prepare simple meals if needed. Able to do light cleaning tasks such as dishes but unable to do heavier tasks such as sweeping, mopping, etc. due to back pain. [facility] assists with setting up weekly pillbox. 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 Discussed use of grain cleaner for donning/doffing pants and socks. Offered to [...] 07/03 Months Reversed: 07/03 30 seconds: 06/05 Kuav-Tdko-Oosa: 0 Go/No-Go: 07/03 Address Recall: 07/03 Total Score: 25/30 [facility] Inpatient Short Form: Putting on and taking [...] Standardized Score: 44.27 Interpretation: Clinicians answer the [facility] Inpatient Short Form based on observed patient [...] Assistance with meal preparation, Assistance with financial assistance specialist, Assistance with transportation, Assistance with housekeeping, Assistance [...] Total Treatment Time (min): 39 min Yue Chirstianson M.S., O.T. Cooper Menendez P.T., D.P.T. - 01/14/2022 9:06 AM CDT Physical Therapy Inpatient Evaluation/Treatment SUBJECTIVE Patient's Name: Catia Carias Referring/Attending Provider: Sree Bach M.D. Medical Diagnosis: Hepatic Encephalopathy Without Coma (HCC) [K72.90] Reason for Referral: PT Evaluate and Treat PT evaluate and treat Onset Date: 01/09/22 Payor: [facility] [place] / [place] [facility] [place] / Product [...] pain started Prior Mobility/Functional Transfers Level of [place]: Needs assistance Previous Transfer/Mobility Assistance Comments: Relied [...] needs met and questions answered. Outcome Measures [facility] Inpatient Short Form: -[facility] Basic Mobility (V.2) How much help [...] 3-5 steps with a railing?: A Little -[facility] Basic Mobility (V.2) Raw Score: 22 -[facility] Basic Mobility (V.2) Standardized Score: 47.4 Interpretation: Clinicians answer the -[facility] Inpatient Short Form based on observed [...] Time (min): 50 min Andreas Menendez P.T., D.P.T. Evon Sinha L.G.S.W., M.S.W. - 01/12/2022 11:01 [...] Assessment completed on 09/30/2021 by Joel Tan [facility]. Patient indicates that this information remains [...] reach out to their transplant social worker clinical, Joel Tan, for care coordination, as needed. Patient shares that she has a large and strong support systemthat is able to provide informal support as needed. Patient shares that she has a nurse through [facility] who comes out one time a week to set up her medication in a weekly pill box. Patient provided verbal consent for social work to reconnect [facility] services with [facility]. Patient shares no concerns with [...] reviewing role of an inpatient social worker clinical, engaging in rapport building, empathetic listening, active [...] return home with prior [facility] and family supports. Family to provide transportation at dismissal. Social work will continue to follow and provide psychosocial support and assistance with dismissal planning, as needed. Patient to discharge with home health care. Home Medical Care - Admitted Since 01/09/2022 Service Provider Selected Services Address Phone Fax Patient Preferred [facility] [address], [facility] [phone] -- Contact: intake/admissions NURSING: - [...] was given AVS and will be leaving [facility] with significant other. She had no further [...] (HCC) Migue Garcia Jr., M.D. 01/10/22 1015 Ghassan Cartagenaie - 01/09/2022 9:48 AM CDT SUBJECTIVE CHIEF [...] Source Urine, Urine, Straight Catheter Color, U [place](!) Clarity Clear 1029 Dipstick, Urine(!): Hemoglobin, QL, [...] Appointment Radiology Matthew Jerome 2, M.B.B.S., M.D. [address] [place] [address] [phone] Appointment Gastroenterdina and Adrianne, 2 Hepatology Yue Burciaga M.D. [address] [place] [phone] Virtual Visit Transplant Matthew Jerome 2, M.B.B.S., M.D. [address] [place] [phone] Office Visit Gastroenterology and Matthew Jerome 2 Hepatology Tyrell Rodriguez M.D. [address] [place] [phone] Appointment Radiology [facility] 2 Tyrell Rodriguez M.D. [address] [place] [phone] Hospital Gastroenterology and [facility] Cirrhos is Alcoholic (HCC) 2 Encounter Hepatology Tyrell Rodriguez M.D. [address] [place] [phone] Anesthesia Event Gastroenterology and Rl, 2 Hepatology Ervin Burgos M.D. [address] [place] [address] [phone] Surgery Gastroenterology and [facility] ESOPHAG OGASTRODUODENOSCOPY 2 Hepatology Tyrell Rodriguez M.D. [address] [place] [phone] Pending Results Name Type Priority Associated [...] Alc oholic (HCC) 03/20/2022 8:45 AM ADMINISTRATIVE ASSISTANT Hypertension Portal (HCC) Scheduled Referrals Name [...] Signature Ventricular Rate 81 BPM MUSE ECG/Min [place] Interval 146 ms MUSE QRSD Interval 90 ms MUSE QT Interval 408 ms MUSE QTC Interval 473 ms MUSE P [place] 6 degrees MUSE R [place] 55 degrees MUSE T Wave [place] 26 degrees MUSE Specimen Anatomical Collection Method [...] Number [facility] - [address] [place] [address] 05 [facility] [place] [address] Laboratories-[facility] 200 [facility] (ABNORMAL) Comprehensive Metabolic Panel (01/13/2022 8:42 [...] Number [facility] - [address] [place] [address] [facility] [place] [address] [facility] 200 [facility] (ABNORMAL) CBC without Differential (01/13/2022 8:42 PM CDT) [facility] Method Time Signature Hemoglobin 7.1 (L) [...] [facility] [address] [place], [place] [address] [facility] [place] [address] [facility] [address] [place] Paracentesis [...] Differential, Body Fluid (01/13/2022 2:42 PM CDT) [facility] Method Time Signature Fluid Type Peritoneal- [...] Its performance characteri stics were determined by [facility] in a manner co nsistent with CLIA [...] Reviewed by: Ruth 01/14/2022 7:46 AM CDT DH Specimen Anatomical Collection Method Collection Time Receive d Time (Source) Location / / Volume Laterality Fluid 01/13/2022 2:42 PM 2 3:33 (Peritoneal CDT PM CDT Fluid) Cornelia Jurado M.D. LAB BODY FLUIDS AND STOOLS O RDERABLES Performing Organization Address City/State/ZIP Code Phon e Number [facility] - [address] [place] [address] 05 [place] [address] [facility] 200 [facility] (ABNORMAL) CBC without Differential (01/13/2022 7:09 AM CDT) [facility] gist Method Time Signature Hemoglobin 7.4 (L) [...] Number [facility] - [address] [place] [address] 05 [facility] [place] [address] [facility] [address] [facility] (ABNORMAL) Comprehensive Metabolic Panel (01/13/2022 7:09 [...] [facility] - [address] [place], [place] [address] [facility] [place] [address] [facility] [address] (ABNORMAL) Hemoglobin (01/12/2022 4:17 AM CDT) P athologist Signature Hemoglobin 7.7 (L) 11.6 - 15.0 01/12/2022 DTL g/dL 4:50 AM CDT Specimen Anatomical Collection Method Collection Time Receive d Time (Source) Location / / Volume Laterality Blood (Blood, 01/12/2022 4:17 AM 01/13/20 22 4:42 Venous) CDT AM CDT Cornelia Jurado M.D. LAB BLOOD ADD-ON Performing Organization Address City/[facility] Phon e Number [facility] - [address] [place] [address] (ABNORMAL) Basic Metabolic Panel (01/12/2022 4:17 [...] M.D. LAB BLOOD ADD-ON Performing Organization Address City/State/[facility] Phon e Number [facility] - [address] [place] [address] 05 [facility] [place] [address] [facility] [address] [facility] (ABNORMAL) Hemoglobin (01/11/2022 4:35 PM CDT) [...] MEDICAL CENTER [facility] - [address] [place], [place] [address] [facility] [place] [address] [facility] [address] (ABNORMAL) Comprehensive Metabolic Panel (01/11/2022 8:36 [...] M.D. LAB BLOOD ADD-ON Performing Organization Address City/[facility] Phon e Number [facility] - [address] [place] [address] [address] [facility] (ABNORMAL) Hemoglobin (01/11/2022 6:44 AM CDT) athologist Signature Hemoglobin 7.4 (L) 11.6 - 15.0 01/11/2022 DTL g/dL 7:29 AM CDT Specimen Anatomical Collection Method Collection Time Receive d Time (Source) Location / / Volume Laterality Blood (Blood, 01/11/2022 6:44 AM 01/12/20 22 7:20 Venous) CDT AM CDT Colleen Crowell M.D., M.P.H. LAB BLOOD ADD-ON Performing Organization Address City/[facility] Phon e Number [facility] - [address] [place] [address] (ABNORMAL) Hemoglobin (01/10/2022 10:11 PM [...] [facility] [address] [place], [place] [address] [facility] [place] [address] [facility] [address] [facility] (ABNORMAL) Comprehensive Metabolic Panel (01/10/2022 10:11 [...] [facility] - [address] [place], [place] [address] [facility] [place] [address] [facility] 200 [facility] (ABNORMAL) CBC without Differential (01/10/2022 10:11 PM CDT) [facility] Method Time Signature Hemoglobin 7.7 (L) [...] M.P.H. LAB BLOOD ADD-ON Performing Organization Address City/[facility] Phon e Number [facility] - [address] [place], [place] [address] [facility] [place] [address] Laboratories-[address] (ABNORMAL) Hemoglobin (01/10/2022 8:27 PM CDT) P athologist Signature Hemoglobin 7.7 (L) 11.6 - 15.0 01/10/2022 DTL g/dL 8:47 PM CDT Specimen Anatomical Collection Method Collection Time Receive d Time (Source) Location / / Volume Laterality Blood (Blood, 01/10/2022 8:27 PM 01/11/20 8:41 Venous) CDT PM CDT Colleen Crowell M.D., M.P.H. LAB BLOOD ADD-ON Performing Organization Address City/[facility] Phon e Number [facility] - [address] [place], [place] [address] [place] [address] [facility] 200 [facility] Transfuse Red Blood Cells : (01/10/2022 8:08 PM CDT) Colleen Crowell M.D., M.P.H. BLOOD TRANSFUSION ORDERABL ES Transfuse Red Blood Cells : , 1 Units (01/10/2022 8:08 PM CDT) Colleen Crowell M.D., M.P.H. BLOOD TRANSFUSION ORDERABL ES Drug Screen Urine (01/10/2022 1:46 PM CDT) P athologist Signature Ethanol, Negative NEGATIVE 01/10/2022 DTL [...] M.D. LAB URINE ORDERABLES Performing Organization Address City/[facility]/ZIP [facility] Phon e Number [address] (ABNORMAL) Hemoglobin (01/10/2022 12:22 PM CDT) P athologist Signature Hemoglobin 6.4 (L) 11.6 - 15.0 01/10/2022 PM g/dL 1:29 PM CDT Specimen Anatomical Collection Method Collection Time Receive d Time (Source) Location / / Volume Laterality Blood (Blood, 01/10/2022 12:22 01/10/2022 Venous) PM CDT 12:46 PM CDT Cornelia Jurado M.D. LAB BLOOD ADD-ON Performing Organization Address City/[facility]/ZIP [facility] Phon e Number [address] [place] Liver with Liver Doppler (01/10/2022 [...] atio <1.0. All other fluids refer to [email or web address] for further inter pretive information. This test has been modified from the man ufacturer's instructions. Its performance characteri stics were determined by [facility] in a manner consistent wi CLIA requirements. [...] [facility] [address] [place], [place] [address] [facility] [place] [address] [facility] [address] Albumin, Body Fluid (01/10/2022 [...] process. ?? All other fluids refer to www.[employer].com for further interpretive information. This t est has been modified from the supervisor machine setter's instruc tions. Its performance characteristics were determi foreign by [facility] in a manner consistent with CLIA require [...] AND STOOLS Marylou GARCIA Performing Organization Address [facility] Phon e Number [facility] - [address] [address] Laboratories-[address] Lactate Dehydrogenase (LD), Body Fluid (01/10/2022 [...] clinical findings. All other fluids refer to www.[employer] [facility].com for further interpretive information. This test has been modified from the man ufacturer's instructions. Its performance characteristics were det ermined by [facility] in a manner consistent with CLIA requirements [...] AND STOOLS O JOSE Performing Organization Address [facility] Code Phon e Number [facility] - [address] [place], [place] [address] [place] [address] [facility]-[address] Protein, Total, Body Fluid (01/10/2022 9:51 [...] ical findings. All other fluids refer to www.[employer].com for further inter pretive information. This test has been modified from the supervisor machine setter's instructions. Its perform ance characteristics were determined by [facility] in a manner consistent with CLIA require [...] [facility] - [address] [place], [place] [address] [facility] [place] [address] [facility] [address] [facility] Glucose, Body Fluid (01/10/2022 9:51 AM [...] Its performance characteri stics were determined by [facility] in a manner co nsistent with CLIA [...] AND STOOLS O JOSE Performing Organization Address City/[facility] Phon e Number [facility] - [address] Bacterial Culture, Aerobic + Susc (01/10/2022 9:51 AM CDT) [facility] [employer] Method Time Signature Bacterial No growth 01/15/2022 DT Culture, after 5 8:05 AM CDT Aerobic + Susc days of incubation. Specimen Anatomical Collection Method Collection Time Receive d Time (Source) Location / / Volume Laterality Fluid 01/10/2022 9:51 AM 2 (Peritoneal CDT 11:24 AM CDT Fluid) Comment: Specimen Source Site: Fluid Narrative [facility] - 01/15/2022 8:05 AM CDT Bacterial Culture: Received Bactec aerob ic and Bactec anaerobic bottles Cornelia Jurado M.D. LAB MICROBIOLOGY - GENERAL O JOSE Performing Organization Address City/[facility] Phon e Number [facility] - [address] [place] [address] [address] [facility] Cell Count and Differential, Body Fluid (01/10/2022 9:51 AM CDT) [facility] Method Time Signature Fluid Type Peritoneal- 01/10/2022 DHPM Paracentesi 11:46 AM CDT s Gross Serous 01/10/2022 [facility] Appearance 11:46 AM CDT Total Nucleated 1047 /mcL 01/10/2022 [facility] Cells 11:46 AM CDT Comment: ----REFERENCE VALUE---- Synovial: <150 /mcL Peritoneal: <500 /mcL Pleural: <500 /mcL Pericardial: <500 /mcL ----ADDITIONAL INFORMATION---- This test has been modified from the man ufacturer's instructions. Its performance characteri stics were determined by [facility] in a manner co nsistent with CLIA requirements. This test has not bee n cleared or approved by the U.S. Food and Drug Admin istration. Neutrophils 74 % 01/11/2022 12:16 AM CDT [facility] Comment: ----REFERENCE VALUE---- Synovial: <25% Peritoneal: <25% Pleural: <25% Pericardial: <25% Lymphocytes 5 Synovial <75% % 01/11/2022 12:16 AM CD T [facility] Monocytes/Macrophages 17 Synovial <70% % 01/11/2022 1 2:16 AM CDT [facility] Other Cells 4 % 01/11/2022 12:16 AM CDT [facility] Comment: ----REFERENCE VALUE---- The reference range and other method performance specifications have not been established for this bodyfluid. The test result must be integrated into the clinical context for interpretation. Other Cells Are: Mesothelial cells 01/11/2022 5:44 AM CDT [facility] Comment SeeComment 01/11/2022 5:44 AM CDT [facility] Comment: No blasts or malignant cells se en. Degenerative neutrophils present. Reviewed by: Tech 01/11/2022 5:44 AM CDT [facility] Specimen Anatomical Collection Method Collection Time Receive d Time (Source) Location / / Volume Laterality Fluid 01/10/2022 9:51 AM 2 (Peritoneal CDT 11:28 AM CDT Fluid) Cornelia Jurado M.D. LAB BODY FLUIDS AND STOOLS O RDERABLES Performing Organization Address City/State/ZIP Code Phon e Number [facility] - [address] [place], [place] [address] [place] [address] Laboratories-[facility] [address] (ABNORMAL) Hemoglobin (01/10/2022 4:04 AM CDT) P [...] [facility] - 200 [place], [place] [address] [facility] [place] [address] [facility] 200 [facility] (ABNORMAL) Comprehensive Metabolic Panel (01/10/2022 4:04 AM [...] Number [facility] - [address] [place] [address] [facility] [place] [address] Laboratories-[address] (ABNORMAL) CBC with Differential, Blood (01/10/2022 4:04 AM CDT) [facility] [...] [facility] - 200 [place], [place] [address] [facility] [place] [address] [facility] [address] [facility] (ABNORMAL) Cystatin C with Estimated GFR [...] M.D. LAB BLOOD ADD-ON Performing Organization Address City/[facility] Phon e Number [facility] - [address] [place], [place] [address] [place] [address] 200 [facility] (ABNORMAL) Hepatic Function Panel (01/10/2022 4:04 AM CDT) [facility] Method Time Signature Bilirubin, Total, S 22.5 [...] M.D. LAB BLOOD ADD-ON Performing Organization Address City/[facility] Phon e Number [facility] - 200 [place] [address] [facility] [place] [address] [facility] [address] [facility] (ABNORMAL) Haptoglobin (01/10/2022 4:04 AM CDT) [facility] Haptoglobin, S <14 (L) 30 - 200 01/13/2022 [facility] mg/dL 1:56 PM CDT Specimen Anatomical Collection Method Collection Time Receive d Time (Source) Location / / Volume Laterality Blood (Blood, 01/10/2022 4:04 AM 01/13/20 6:42 Venous) CDT AM CDT Cornelia Jurado M.D. LAB BLOOD ADD-ON Performing Organization Address City/[facility]/ZIP Code Phon e Number [facility] [address] [place], [place] [address] [place] [address] [facility] [address] [place] (ABNORMAL) LD (Lactate Dehydrogenase) (01/10/2022 4:04 AM CDT) [facility] Monica 236 (H) 122 - 222 01/10/2022 [facility] LD U/L 5:08 AM CDT Specimen Anatomical Collection Method Collection Time Receive d Time (Source) Location / / Volume Laterality Blood (Blood, 01/10/2022 4:04 AM 01/11/20 4:46 Venous) CDT AM CDT Cornelia Jurado M.D. LAB BLOOD NON ADD-ON Performing Organization Address City/[facility]/ZIP Code Phon e Number [address] [address] [place] [address] [facility] 200 [facility] (ABNORMAL) SPSMA Result (01/10/2022 4:04 AM CDT) [facility] gist Method Time Signature Neutrophilic Segs 76 (H) 50 - 75 % 01/10/2022 [facility]ands 8:26 AM CDT Lymphocytes 17 (L) 18 - 42 % 01/10/2022 [facility] 8:26 AM CDT Monocytes 5 2 - 11 % 01/10/2022 [facility] 8:26 AM CDT Metamyelocytes 1 (H) <1 % 01/10/2022 [facility] 8:26 AM CDT Myelocytes 1 (H) <0.5 % 01/10/2022 [facility] 8:26 AM CDT Nucleated RBC 2 /100 WBC 01/10/2022 [facility] 8:26 AM CDT Manual Absolute 6.61 (H) 1.56 - 01/10/2022 [facility] Neutrophil Count 6.45 8:26 AM CDT x10(9)/L Comment: ----ADDITIONAL INFORMATION---- The manual absolute neutrophil count is derived from a manual differential count and therefore is not exactly comparable to the automated absolute armida trophil count. Interpretation SeeComment 01/10/2022 8:26 AM CDT D [facility] Comment: No morphologic features of hemo lysis are seen. Reviewed by: Tech 01/10/2022 8:26 AM CDT [facility] Specimen Anatomical Collection Method Collection Time Receive d Time (Source) Location / / Volume Laterality Blood (Blood, 01/10/2022 4:04 AM 01/11/20 4:37 Venous) CDT AM CDT Cornelia Jurado M.D. LAB BLOOD ADD-ON Performing Organization Address City/[facility] Phon e Number [facility] - [address] Magnesium (01/10/2022 4:04 AM CDT) P athologist Signature Magnesium, S 1.9 1.7 - 2.3 01/10/2022 DTL mg/dL 5:18 AM CDT Specimen Anatomical Collection Method Collection Time Receive d Time (Source) Location / / Volume Laterality Blood (Blood, 01/10/2022 4:04 AM 01/11/20 4:54 Venous) CDT AM CDT Cornelia Jurado M.D. LAB BLOOD ADD-ON Performing Organization Address City/[facility] Code Phon e Number [facility] [address] Transfuse Red Blood Cells : (01/10/2022 [...] LAB BLOOD NON ADD-ON Performing Organization Address City/[facility] Phon e Number [facility] - [address] (ABNORMAL) Hemoglobin (01/09/2022 9:13 PM CDT) athologist Signature Hemoglobin 6.6 (L) 11.6 - 15.0 01/09/2022 DTL g/dL 11:14 PM CDT Specimen Anatomical Collection Method Collection Time Receive d Time (Source) Location / / Volume Laterality Blood (Blood, 01/09/2022 9:13 PM 01/10/20 9:40 Venous) CDT PM CDT Cornelia Jurado M.D. LAB BLOOD ADD-ON Performing Organization Address City/State/[facility] Phon e Number [facility] - [address] Transfuse Red Blood Cells : (01/09/2022 [...] MEDICAL CENTER [facility] - [address] [place], [place] [address] [facility] [place] [address] [facility] [address] ECG 12 Lead (01/09/2022 2:34 PM CDT) P athologist Signature Ventricular Rate 108 BPM MUSE ECG/Min [place] Interval 158 ms MUSE QRSD Interval 86 ms MUSE QT Interval 360 ms MUSE QTC Interval 482 ms MUSE P [place] 85 degrees MUSE R [place] 117 degrees MUSE T Wave [place] 84 degrees MUSE Specimen Anatomical Collection Method [...] Address City/State/ZIP Code Phon e Number BERTHA MUSE NA SARS Coronavirus 2, RNA, Rapid POC, V Asymptomatic (01/09/2022 1:45 PM CDT) [facility] Method Time Signature SARS Undetected Undetected 01/09/2022 DTLR Coronavirus-2 2:05 PM CDT , RNA, Rapid POC, V Comment: Negative for SARS-CoV-2. The Multigig COVID-19 test is a molecular jonathan t for SARS-CoV-2, the virus that causes COVID- 19. A Negative result means that the Multigig COV ID-19 test did not detect SARS-CoV-2 virus in your sample. Multigig COVID-19 test uses the [employer]ious.[employer] Mo nitoring System. This test has received Emergency Use Authorization (EUA) by the U.S. Food and Drug Administration (FDA) and is used per man ufacturer instructions. Performance characteristic s were verified by [facility] in a manner consistent with CLIA requirements. Fact sheets for this Emerg ency Use Authorization (EUA) can be found at the following links: Providers: https://ViaCyte.Cubby/documentation/prov iders.pdf Patients: https://ViaCyte.com/documentation/deshawn ents.pdf SARS Coronavirus 2, Source Nasopharynx DEFAULT 01/09/2022 2:05 PM CDT DTLR Specimen Anatomical Collection Method Collection Time Receive d Time (Source) Location / / Volume Laterality Varies 01/09/2022 1:45 PM 1:45 (Nasopharynx) CDT PM CDT Reese Reyes M.D. LAB MICROBIOLOGY - GENERAL O JOSE Performing Organization Address City/[facility]/ZIP Code Phon e Number PERFORMING LABS, [place] [address] INTERFACE Ref Interface 200 [facility] DTLR Performing Labs, [place] [address] Interface 200 [facility] Bacteria / Raudel Culture, Blood # 2 (01/09/2022 10:11 AM CDT) [facility] Method Time Signature Bacteria/Adriana No growth 01/14/2022 DTL da Culture, after 5 11:02 AM CDT Blood days of incubation. Specimen (Source) Anatomical Collection Method Collection Time Re ceived Time Location / / Volume Laterality Blood (Blood, 01/09/2022 10:11 01/09/2022 Peripheral Draw) AM CDT 10:32 AM CD T Comment: Specimen Source Site: Blood Narrative [facility] - [facility] - 01/14/2022 11:02 AM CDT Received Bactec Peds bottle Wilfredo Vigil P.A.-C. LAB MICROBIOLOGY - GENERAL O JOSE Performing Organization Address City/[facility] Phon e Number [facility] - [address] [place], [place] [address] [facility] [place] [address] [facility] [address] [facility] (ABNORMAL) Dipstick, Urine (01/09/2022 10:04 AM CDT) [facility] Method Time Signature Hemoglobin, Negative Negative [...] M.D. LAB URINE ORDERABLES Performing Organization Address City/[facility]/ZIP Code Phon e Number [facility] - [address] 200 [facility] pH, Random, Urine (01/09/2022 10:04 AM CDT) athologist Signature pH, Random, U 5.9 4.5 - 8.0 01/09/2022 DTL 10:48 AM CDT Specimen Anatomical Collection Method Collection Time Receive d Time (Source) Location / / Volume Laterality Urine 01/09/2022 10:04 01/09/2022 AM CDT 10:21 AM CDT Migue Garcia Jr., M.D. LAB URINE ORDERABLES Performing Organization Address City/[facility]/ZIP Code Phon e Number [facility] - [address] Osmolality, Urine (01/09/2022 10:04 AM CDT) athologist Signature Osmolality, U 428 150 - 1150 01/09/2022 DT mOsm/kg 10:48 AM CDT Specimen Anatomical Collection Method Collection Time Receive d Time (Source) Location / / Volume Laterality Urine 01/09/2022 10:04 01/09/2022 AM CDT 10:21 AM CDT Migue Garcia Jr., M.D. LAB URINE ORDERABLES Performing Organization Address City/[facility]/ZIP [facility] Phon e Number [facility] - [address] (ABNORMAL) Microscopic Manual (01/09/2022 10:04 AM [...] M.D. LAB URINE ORDERABLES Performing Organization Address City/[facility] Phon e Number [facility] - [address] [place] [address] Laboratories-[address] Bacterial Culture, Aerobic + Susc, Urine (01/09/2022 10:04 AM CDT) [facility] Method Time Signature Urine Culture No growth 01/10/2022 DT after 1 day 8:28 AM CDT of incubation. Specimen Anatomical Collection Method Collection Time Receive d Time (Source) Location / / Volume Laterality Urine (Urine, 01/09/2022 10:04 01/09/2022 Straight AM CDT 11:23 AM CDT Catheter) Comment: Specimen Source Site: Urine Migue Garcia Jr., M.D. LAB MICROBIOLOGY - GENERA L ORDERABLES Performing Organization Address City/[facility] Code Phon e Number [facility] - [address] (ABNORMAL) Urinalysis with Microscopic: Urine, Straight Catheter (01/09/2022 10:04 AM CDT) [employer] Method Time Signature Source Urine, 01/09/2022 DTL Urine, 10:21 AM CDT Straight Catheter Color, U [place] (A) 01/09/2022 DTL 10:21 AM CDT Clarity, [...] M.D. LAB URINE ORDERABLES Performing Organization Address City/[facility] Phon e Number [facility] - [address] D[address] [facility] Lactate, POCT (01/09/2022 10:04 AM CDT) Analysis Performed At Patho logist Time Signature Lactate, POCT Collected DEFAULT 01/09/2022 SMLX 10:04 AM CDT Specimen Anatomical Collection Method Collection Time Receive d Time (Source) Location / / Volume Laterality Blood (Blood, 01/09/2022 10:04 01/09/2022 Venous) AM CDT 10:04 AM CDT Wilfredo Vigil P.A.-C. LAB POCT ORDERABLES - DEVICE Performing Organization Address City/[facility] Phon e Number [facility] - [address] SMLX [place] [address] [address] [facility] Bacteria / Raudel Culture, Blood #1 (01/09/2022 [...] - GENERAL O RDERABLES Performing Organization Address City/[facility] Phon e Number [facility] - [address] [place] [address] [facility] DTL [address] Glucose, POCT (01/09/2022 10:04 AM CDT) Analysis Performed At Patho logist Time Signature Glucose, POCT, Collected DEFAULT 01/09/2022 SMLX B 10:04 AM CDT Specimen Anatomical Collection Method Collection Time Receive d Time (Source) Location / / Volume Laterality Blood (Blood, 01/09/2022 10:04 01/09/2022 Capillary) AM CDT 10:04 AM CDT Wilfredo Vigil P.A.-C. LAB POCT ORDERABLES-MANUAL Performing Organization Address [facility] Phon e Number [facility] - [address] [place] [address] (ABNORMAL) Hepatic Function Panel (01/09/2022 10:03 [...] P.A.-C. LAB BLOOD ADD-ON Performing Organization Address [facility] Phon e Number [facility] - [address] [place] [address] [place] [address] Laboratories-[address] (ABNORMAL) Prothrombin Time (PT) (01/09/2022 10:03 [...] P.A.-C. LAB BLOOD ADD-ON Performing Organization Address City/State/[facility] Phon e Number [facility] - [address] [place] [address] 05 [facility] [place] [address] Laboratories-[address] (ABNORMAL) CBC with Differential, Blood (01/09/2022 [...] MEDICAL CENTER LABOR[facility] - [address] [place], [place] [address] [place] [address] [facility] [address] hCG (Human Chorionic Gonadotropin), Quantitative, (01/09/2022 10:02 [...] Number [facility] - [address] [place] [address] 05 [place] [address] [facility] 200 [facility] (ABNORMAL) Basic Metabolic Panel (01/09/2022 10:02 AM [...] - 140 mg/dL 01/09/2022 10:33 AM CDT [facility] Specimen Anatomical Collection Method Collection Time Receive d Time (Source) Location / / Volume Laterality Blood (Blood, 01/09/2022 10:02 01/09/2022 Venous) AM CDT 10:17 AM CDT Wilfredo Vigil P.A.-C. LAB BLOOD ADD-ON Performing Organization Address City/State/ZIP Code Phon e Number [facility] [address] [place], [place] [address] [facility] [place] [address] [facility] [address] [place] [address] [facility] [address] Glucose, POCT (01/09/2022 10:01 [...] Organization Address City/State/ZIP Code Phon e Number [facility] [address] [place] [address] PCLX [facility] [place] [address] [place] [facility] [address] (ABNORMAL) Dipstick, POCT, Urine (01/09/2022 10:00 AM CDT) Patholo gist Method Time Signature Glucose, Negative Negative 01/09/2022 PCED POCT, U mg/dL 10:02 AM CDT Ketone, POCT, Negative Negative 01/09/2022 PCED U mg/dL 10:02 AM CDT Specific 1.015 1.005 - 01/09/2022 PCED Sarita, 1.030 10:02 AM CDT POCT, U Blood, [...] POCT ORDERABLES - DEVICE Performing Organization Address City/[facility]/ZIP [facility] Phon e Number POC [facility] [address] [place] [address] [place] [address] [facility] [address] (ABNORMAL) Ammonia (01/09/2022 9:59 AM CDT) P [...] MEDICAL CENTER LABORATORIES - [address] [place], [place] [address] [facility] [place] [address] [facility] [address] Lipase (01/09/2022 9:56 AM CDT) P athologist [...] MEDICAL CENTER LABORATORIES - [address] [place], [place] [address] [facility] [place] [address] Laboratories-[facility] [address] Type and Screen [...] Leslie Gupta M.D. LAB BLOOD BANK TEST ORDE GOSIA Performing Organization Address City/State/ZIP Code Phon e Number [facility] - [address] [place] [address] [facility] [address] (ABNORMAL) Lactate, POCT (01/09/2022 9:53 AM CDT) P athologist Signature Lactate, POCT 3.55 (H) 0.50 - 01/09/2022 PCLX 2.20 10:20 AM CDT mmol/L Sample Site, Venstick 01/09/2022 PCLX POCT 10:20 AM CDT Specimen Anatomical Collection Method Collection Time Receive d Time (Source) Location / / Volume Laterality Blood 01/09/2022 9:53 AM 2 CDT 10:20 AM CDT Unknown Provider LAB POCT ORDERABLES - DEVICE Performing Organization Address City/State/ZIP Code Phon e Number POC [facility] [address] [place] [address] [place] [address] [facility] [address] [facility] documented in this encounter Visit Diagnoses Diagnosis Cirrhosis Alcoholic (HCC) Hypertension Portal (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 (HCC ) - Primary Hepatic Encephalopathy Without Coma (HCC ) Deficiency Vitamin A Cirrhosis Alcoholic (HCC) Pain [...] human 25 % injection 60 g (COMPLETED) 0826 (Ne w Bag - Provider: Yanira Martinez [...] 2000 (Given - Provide r: Kary Dickson RGabby) 2015 (Given - Provider: Kindra Knight R.N.) 50 mg, oral, Daily at bedtime, First dose on Wed01/10/22 at 0030 vitamin A capsule 3,000 mcg 08 (Given - Provider: Yanira lucas R.N.) 0943 (Given - Provider: Leandra Estevez R.N.) [...] Leandra Estevez R.N.)2015 (Given - Provider: Kindra Kinght R.N.) 0155 (Given - Provider: Vanessa VilaSumaNSuma)0939 (Given - Provider: Leandra Estevez R.N.)1627 (Given [...] Provider: Almita Britt RSumaNSuma)0821 (Given - Provider: Yanira Martinez RSumaNSuma) 1 mg, oral, Every 4 hours PRN, moderate pain or score 4-6 of 10, Starting on Wed01/09/22 at 1615 HYDROmorphone tablet 1 mg (DILAUDID) () 1999 (Tristan parkeren - Provider: Kary Dickson RSumaNSuma) 0812 (Given [...] (ZOFRAN-ODT ) 0906 (Given - Provider: Yanira Martinez, R.N.)1736 (Given - Provider: Yanira Martinez, R.N.) 4 mg, oral, Every 6 hours PRN, nausea, v omiting, Starting on Wed01/09/22 at 1417, When splitting ODT at bedside, handle with gloves and a pill splitter to prevent moisture contact. prochlorperazine injection 5 mg (COMPAZINE) 0904 (Not Given - Provider: Yanira Martinez, R.N. - Reason: Patient/family refused)1738 (Given - Provider: Yanira Martinez, R.N.) 5 mg, intravenous, Every 6 hours [...] PCP - General Internal Medicine 12/01/[address] [place] [phone] [facility] [place] lab 08/25/21 Ervin Schroeder MD Referring Provider Family Medicine 03/24/[address] [place] [phone] documented as of this encounter
--- OUTSIDE RECORDS SUMMARY | 2022-02-14 22:03 | XMS_ITS | Encounter Summary ---
:1990 Author Organization [facility] Address [address] [place] [address] Care Team Providers Name Role Phone Ana Red P.A.-C. Primary Care Provider [phone] Reason for Visit Reason Comments Back Pain Encounter Details Date Type Department Care Team Description 12/19/2021 Nurse Triage [facility] Ben Sun , Back Pain Internal Medicine in [place], [place] [address] [facility] [address] [place], [place] [phone] Social History Tobacco Use Types Packs/Day Years [...] you attend zoroastrianism or Patient refused 2021 catholic services? Do you belong to any clubs or No 02/10/2022 organizations such as zoroastrianism groups, unions, fraBoundary or athletic groups, or school groups? 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 Call your doctor (or FINGERPRINTER/PA) now or as soon as the office [...] need to be seen. Your doctor (or FINGERPRINTER/PA) will want to talk with you to [...] acetaminophen, ibuprofen, or naproxen. * They are uxny-gqs-bkyaujf (OTC) pain drugs. You can buy them at the drugsGreenTec-USAe. * ACETAMINOPHEN - REGULAR STRENGTH TYLENOL: Take [...] Appointment Radiology Matthew Jerome 2 YVikBLilian Bedolla [address] [place] [phone] Appointment Gastroenterology and Adrianne, 2 Hepatology Yue Burciaga M.D. [address] [place] [phone] Virtual Visit Transplant LuischantellMatthew 2 YVikBLilian Bedolla [address] [place] [phone] Office Visit Gastroenterology and Matthew Jerome 2 Hepatology Vik RodriguezBLilian Bedolla [address] [place] [phone] Appointment Radiology Matthew Jerome 2 YTyrell M.D. [address] [place] [phone] Hospital Gastroenterology and Matthew Jerome Cirrhos is Alcoholic (HCC) 2 Encounter Hepatology Tyrell Rodriguez M.D. [address] [place] [phone] Anesthesia Event Gastroenterology and Rl, 2 Hepatology Ervin Burgos M.D. [address] [place] [phone] Surgery Gastroenterology and [facility] ESOPHAG OGASTRODUODENOSCOPY 2 Hepatology Tyrell Rodriguez M.D. [address] [place] [phone] Scheduled Procedures Name Priority Associated Diagnoses Date/Time ESOPHAGOGASTRODUODENOSCOPY Cirrhosis Alc oholic (HCC) 03/20/2022 8:45 AM EXTRUSION BENDER Hypertension Portal (HCC) documented as of this encounter Visit Diagnoses Not on filedocumented in this encounter Additional Health Concerns Assessment Noted Time PHQ-9 Depression Total Score: 10 10/06/2021 5:00 PM CD T documented as of this encounter Care Teams Securities Dealer Relationship Specialty Start Date End Date Ana Red P.A.-C. PCP - General Internal Medicine 12/01/[address] [place] [address] [place] [phone] [facility] [place] [facility] 08/25/21 Ervin Schroeder MD Referring Provider Family Medicine 03/24/[address] [place] [address] [place] [address] documented as of this encounter
--- OUTSIDE RECORDS SUMMARY | 2022-02-14 22:03 | XMS_ITS | Encounter Summary ---
:1990 Author Organization [facility] Address [address] [place] [address] Care Team Providers Name Role Phone Ana Red P.A.-C. Primary Care Provider [phone] Encounter Details Date Type Department Care Team Description 12/15/2021 Lab Department of dAeline Frazier Alcohol Moderate Or Severe Use Disorder (Dependence) Uncomplicated (HCC); Laboratory Medicine and Lilian Gannon, Ph.D. Cannabis Use Unspecified Uncomplicated Pathology, [place] [address] [place] [address], in [facility] [phone] [place] [address] [place] [address] Social History Tobacco Use Types [...] you attend mosque or Patient refused 2021 uatsdin services? 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 [address] [place] [phone] Appointment Gastroenterology and Adrianne, 2 Hepatology Yue Burciaga M.D. [address] [place] [address] Virtual Visit Transplant Matthew Jerome 2 YTyrell M.D. [address] [place] [phone] Office Visit Gastroenterology and [facility] 2 Hepatology Tyrell Rodriguez M.D. [address] [place] [phone] Appointment Radiology [facility] 2 Tyrell Rodriguez M.D. [address] [place] [phone] [facility] Gastroenterology and [facility] Cirrhos is Alcoholic (HCC) 2 Encounter Hepatology Tyrell Rodriguez M.D. [address] [place] [phone] Anesthesia Event Gastroenterology and Rl, 2 Hepatology Ervin Burgos M.D. [address] [place] [phone] Surgery Gastroenterology and [facility] ESOPHAG OGASTRODUODENOSCOPY 2 Hepatology Tyrell Rodriguez M.D. [address] [place] [phone] Scheduled Procedures Name Priority Associated Diagnoses Date/Time ESOPHAGOGASTRODUODENOSCOPY Cirrhosis Alc oholic (HCC) 03/20/2022 8:45 AM INTEGRATED LOGISTICS PROGRAMS DIRECTOR Hypertension Portal (HCC) documented as of [...] (THC) Confirmation, Urine (12/15/2021 5:58 PM CDT) [facility] Method Time Signature Carboxy-THC- by 19 Cutoff: 12/18/2021 [facility] GC/MS 3.0 ng/mL 6:38 AM CDT Carboxy-THC Positive. 12/18/2021 [facility] Interpretation 6:38 AM CDT Comment: ----ADDITIONAL INFORMATION---- This report is intended for use in clini ada monitoring and management of patients. ??It is not intended for use i n employment-related testing. This test was developed and its performa nce characteristics determined by [facility] in a manner consistent with CLIA [...] Phon e Number [facility] [address] [place], [place] [address] SUPPORT CENTER [facility] [place] [address] Laboratory Medicine and Pathology [address] [place] (ABNORMAL) Drug Abuse Survey with Confirmation, Urine (12/15/2021 5:58 PM CDT) [facility] Method Time Signature Alcohol Negative Cutoff: 10 [...] Phon e Number [facility] [address] [place], [place] [address] SUPPORT CENTER [facility] [place] [address] Laboratory Medicine and Pathology [address] [place] Ethyl Glucuronide Confirmation, Random, Urine (12/15/2021 5:51 PM CDT) [facility] Method Time Signature Ethyl Glucuronide Negative Cutoff: 12/17/2021 [facility] Confirmation, U 250 ng/mL 10:34 AM CDT Ethyl Sulfate Negative Cutoff: 12/17/2021 [facility] 100 ng/mL 10:34 AM CDT Ethyl Gluc/Sulfate Negative. 12/17/2021 [facility] Interpretation 10:34 AM CDT Comment: ----ADDITIONAL INFORMATION---- This report is intended for use in clini ada monitoring and management of patients. ??It is not intended for use i n employment-related testing. This test was developed and its performa nce characteristics determined by [facility] in a manner consistent with CLIA [...] Phon e Number [facility] [address] [place], [place] [address] SUPPORT CENTER [facility] [place] [address] Laboratory Medicine and Pathology [address] [...] as of this encounter Care Teams Engineering Associate Relationship Specialty Start Date End Date Ana Red P.A.-C. PCP - General Internal Medicine 12/01/[address] [place] [phone] [facility] [place] lab 08/25/21 Ervin Schroeder MD Referring Provider Family Medicine 03/24/[address] [place], [place] [address]th [place] [address] documented as of this encounter
--- OUTSIDE RECORDS SUMMARY | 2022-02-14 22:03 | XMS_ITS | Encounter Summary ---
:1990 Author Organization [facility] Address [address] [place] [address] Care Team Providers Name Role Phone Ana RedASuma-CSuma Primary Care Provider Reason for Referral Outpatient (Routine) - Authorized Specialty Diagnoses / Procedures Referred By Contact Refer red To Contact [facility] Ana Red [facility] P.A.-CSuma [address] [facility] [place] [address] Referral ID Status Reason Start Date Expiration Date Visits V isits Requested Authorized [id number] Authorized 01/07/2022 01/06/2025 1 1 Reason for Visit Reason Comments Follow-up Cirrhosis and Hepatic Enceph alopathy. Back Pain Back Pain for 3 1/2 weeks. Outpatient (Routine) - Closed Specialty Diagnoses / Procedures Referred By Contact Refer red To Contact [facility] JESSE Arnold [facility] Adair Correa [address] [place] [address] Referral ID Status Reason Start Date Expiration Date Visits Requ ested Visits Authorized [id number] Closed 12/02/2021 12/02/2022 1 1 Encounter Details Date Type Department Care Team Description 01/07/2022 Office Visit Department of Internal [place], Hyper tension Portal (HCC) (Primary Dx); Medicine in [place] .A.-C. Cirrhosis Alcoholic (HCC); [place] [address] Ascites; [address] [place], [place] Pancreatitis Chronic (HCC); [place] [address] Pain Low Back Mechanical [phone] Social History [...] you attend congregational or Patient refused 2021 mu-ism services? 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 She was a heavy drinking in her 20s. She follows with GI and hepatology in [place]. She gets frequent paracentesis for ascites. She [...] (HCC) Follows with GI and Hepatology in [place]. She has a paracentesis scheduled for two [...] pap smears. We cannot see records from [place]. Other orders - [facility] [...] UP: 3 months or sooner if needed. nAa Red P.A.-C. documented in this encounter Miscellaneous [...] Radiology Matthew Jerome 2 YTyrell M.D. [address] [place] [phone] Appointment Gastroenterology and Adrianne, 2 Hepatology Yue Burciaga M.D. [address] [place] [phone] Virtual Visit Transplant Matthew Jerome 2 YTyrell M.D. [address] [place] [phone] Office Visit Gastroenterology and [place] Matthew 2 Hepatology Tyrell Rodriguez M.D. [address] [place] [phone] Appointment Radiology Queenie Matthew 2 Tyrell Rodriguez M.D. [address] [place] [phone] Hospital Gastroenterology and [place] Matthew Cirrhos is Alcoholic (HCC) 2 Encounter Hepatology Tyrell Rodriguez M.D. [address] [place] [phone] Anesthesia Event Gastroenterology and Rl, 2 Hepatology Ervin Burgos M.D. [address] [place] [phone] Surgery Gastroenterology and [place] Matthew ESOPHAG OGASTRODUODENOSCOPY 2 Hepatology Tyrell Rodriguez M.D. [address] [place] [phone] Scheduled Procedures Name Priority Associated Diagnoses Date/Time ESOPHAGOGASTRODUODENOSCOPY Cirrhosis Alc oholic (HCC) 03/20/2022 8:45 AM OLEOMARGARINE MAKER Hypertension Portal (HCC) Scheduled Referrals Name Type Priority Associated Diagnoses Order [facility] Internal Outpatient Referral Routine Ex pected: Medicine [...] documented as of this encounter Care Teams Physician/Ophthalmologist Relationship Specialty Start Date End Date Ana Red P.A.-C. PCP - General Internal Medicine 12/01/[address] [place] [phone] [facility] [place] lab 08/25/21 Ervin Schroeder MD Referring Provider Family Medicine 03/24/[address] [place] [address] documented as of this encounter
--- OUTSIDE RECORDS SUMMARY | 2022-02-14 22:03 | XMS_ITS | Encounter Summary ---
:1990 Author Organization [facility] Address [address] [place] [address] Care Team Providers Name Role Phone Ana Red P.A.-C. Primary Care Provider [phone] Encounter Details Date Type Department Care Team Description 12/25/2021 Clinical Communication [facility] Farida Perez Medicine in [address] [address] [place], [place] [phone] (Work) [phone] Social History Tobacco Use Types Packs/Day Years [...] you attend hinduism or Patient refused 2021 orthodoxy services? 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 [address] [place] [phone] Virtual Visit Transplant Matthew Jerome 2 Tyrell Rodriguez M.D. [address] [place] [phone] Office Visit Gastroenterology and LuisNew abdular 2 Hepatology Tyrell Rodriguez M.D. [address] [place] [phone] Appointment Radiology Matthew Jerome 2 Tyrell Rodriguez M.D. [address] [place] [phone] Hospital Gastroenterology and Matthew Jerome Cirrhos is Alcoholic (HCC) 2 Encounter Hepatology Tyrell Rodriguez M.D. [address] [place] [phone] Anesthesia Event Gastroenterology and Rl, 2 Hepatology Ervin Burgos M.D. [address] [place] [phone] Surgery Gastroenterology and [place] ESOPHAG OGASTRODUODENOSCOPY 2 Hepatology Tyrell Rodriguez M.D. [address] [place] [phone] Scheduled Procedures Name Priority Associated Diagnoses Date/Time ESOPHAGOGASTRODUODENOSCOPY Cirrhosis Alc oholic (HCC) 03/20/2022 8:45 AM WORD PROCESSOR TECHNICIAN Hypertension Portal (HCC) documented as of this encounter Visit Diagnoses Not on filedocumented in this encounter Additional Health Concerns Assessment Noted Time PHQ-9 Depression Total Score: 10 10/06/2021 5:00 PM CD T documented as of this encounter Care Teams Regional Safety Manager Relationship Specialty Start Date End Date Ana Red P.A.-C. PCP - General Internal Medicine 12/01/[address] [place] [phone] [facility]- [place] lab 08/25/21 Ervin Schroeder MD Referring Provider Family Medicine 03/24/[address] [place] [address] documented as of this encounter
--- OUTSIDE RECORDS SUMMARY | 2022-02-14 22:03 | XMS_ITS | Encounter Summary ---
:1990 Author Organization [facility] Address [address] [place] [address] Care Team Providers Name Role Phone Ana Red P.A.-C. Primary Care Provider [phone] Encounter Details Date Type Department Care Team Description 01/08/2022 Clinical Communication [facility] Farida Perez Medicine in [address] [phone] [place], [place] [phone] (Work) [phone] Social History Tobacco Use Types Packs/Day Years [...] you attend scientologist or Patient refused 2021 congregational services? 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 [address] [place] [phone] Appointment Gastroenterology demian [place], 2 Hepatology Yue Burciaga M.D. [address] [place] [phone] Virtual Visit Transplant Matthew Jerome 2 YVikBGraeme, Lilian [address] [place] [phone] Office Visit Gastroenterology and Matthew eJrome 2 Hepatology Vik RodriguezBLilian Bedolla [address] [place] [phone] Appointment Radiology Matthew Jerome 2 Vik RodriguezBLilian Bedolla [address] [place] [phone] Hospital Gastroenterology and Matthew Jerome Cirrhos is Alcoholic (HCC) 2 Encounter Hepatology Y, M.B.B.S., Lilian [address] [place] [phone] Anesthesia Event Gastroenterology and Rl, 2 Hepatology Ervin Burgos M.D. [address] [place] [phone] Surgery Gastroenterology and Mousa, Matthew ESOPHAG OGASTRODUODENOSCOPY 2 Hepatology Tyrell Rodriguez, Lilian [address] [place] [phone] Scheduled Procedures Name Priority Associated Diagnoses Date/Time ESOPHAGOGASTRODUODENOSCOPY Cirrhosis Alc oholic (HCC) 03/20/2022 8:45 AM SQL MANAGER Hypertension Portal (HCC) documented as of this encounter Visit Diagnoses Not on filedocumented in this encounter Additional Health Concerns Assessment Noted Time PHQ-9 Depression Total Score: 10 10/06/2021 5:00 PM CD T documented as of this encounter Care Teams Gasoline Engine Inspector Relationship Specialty Start Date End Date Ana Red P.A.-C. PCP - General Internal Medicine 12/01/[address] [place] [phone] [facility] [place] lab 08/25/21 Ervin Schroeder MD Referring Provider Family Medicine 03/24/[address] [place] [address] documented as of this encounter
--- OUTSIDE RECORDS SUMMARY | 2022-02-14 22:03 | XMS_ITS | Encounter Summary ---
:1990 Author Organization [facility] Address [address] [place] [address] Care Team Providers Name Role Phone Ana Red P.A.-C. Primary Care Provider Reason for Visit Reason Comments Back Pain Encounter Details Date Type Department Care Team Description 12/19/20[address] - [address] [facility] Katrin Gonzalez M.D., Ph.D. [address] [place] [phone] Pain Back (Primary 12/20/2021 Emergency Department Migue Garcia Jr., M.D. [address] [place] [phone] Dx) [address] [place] [phone] Social History Tobacco Use Types Packs/Day [...] attend latter day or Patient refused 2021 christianity services? Do [...] at Date Recorded Female 04/12/2021 7:[address] JUDGE documented as of this encounter Last Filed [...] Pain Back Ted Gonzalez M.D., Ph.D. 12/20/21 2237 Harinder Nguyễn M.D. - 12/20/2021 2:40 AM [...] Radiology Matthew Jerome 2, M.B.B.S., M.D. [address] [place] [phone] Appointment Gastroenterdina and Adrianne, 2 Hepatology Yue Burciaga M.D. [address] [place] [phone] Virtual Visit Transplant Matthew Jerome 2 YTyrell M.D. [address] [place] [phone] Office Visit Gastroenterology and Matthew Jerome 2 Hepatology Tyrell Rodriguez M.D. [address] [place] [phone] Appointment Radiology Matthew Jerome 2 YTyrell M.D. [address] [place] [phone] [facility] Cirrhos is Alcoholic (HCC) 2 Encounter Hepatology Tyrell Rodriguez M.D. [address] [place] [phone] Anesthesia Event Gastroenterology and Rl, 2 Hepatology Ervin Burgos M.D. [address] [place] [phone] Surgery Gastroenterology and Queenie Matthew ESOPHAG OGASTRODUODENOSCOPY 2 Hepatology Tyrell Rodriguez M.D. [address] [place] [phone] Scheduled Procedures Name Priority Associated Diagnoses Date/Time ESOPHAGOGASTRODUODENOSCOPY Cirrhosis Alc oholic (HCC) 03/20/2022 8:[address] JUDGE Hypertension Portal (HCC) documented as of this [...] Dipstick, POCT, Urine (12/20/2021 4:20 AM CDT) [facility] Method Time Signature Glucose, POCT, Negative Negative 12/20/2021 [facility] U mg/dL 4:22 AM CDT Ketone, POCT, Negative Negative 12/20/2021 [facility] U mg/dL 4:22 AM CDT Specific 1.020 1.005 - 12/20/2021 [facility] [place], POCT, 1.030 4:22 AM CDT U Blood, [...] RST [facility] [address] [place] [address] OUTPATIENT LABS PC[facility] [place] [address] [facility] [address] Dipstick, Urine (12/20/2021 4:17 AM CDT) Patholo [...] [facility] - [address] [place], [place] [address] [facility] [place] [address] Laboratories-[facility] [address] pH, Random, Urine (12/20/2021 4:17 AM CDT) P athologist Signature pH, Random, U 5.5 4.5 - 8.0 12/20/2021 DTL 5:17 AM CDT Specimen Anatomical Collection Method Collection Time Receive d Time (Source) Location / / Volume Laterality Urine 12/20/2021 4:17 AM 2 5:00 CDT AM CDT Harinder Nguyễn M.D. LAB URINE ORDERABLES Performing Organization Address City/[facility]/ZIP Code Phon e Number [facility] - 200 [place], [place] [address] [facility] [place] [place] [address] Osmolality, Urine (12/20/2021 4:17 AM CDT) P athologist Signature Osmolality, U 451 150 - 1150 12/20/2021 DT mOsm/kg 5:17 AM CDT Specimen Anatomical Collection Method Collection Time Receive d Time (Source) Location / / Volume Laterality Urine 12/20/2021 4:17 AM 2 5:00 CDT AM CDT Harinder Nguyễn M.D. LAB URINE ORDERABLES Performing Organization Address City/[facility]/ZIP Code Phon e Number [facility] - 200 [place], [place] [address] [facility] [place] [place] [address] Microscopic Manual (12/20/2021 4:17 AM CDT) [...] [facility] - 200 [place], [place] [address] [facility] [place] [place] [address] Bacterial Culture, Aerobic + Susc, Urine (12/20/2021 4:17 AM CDT) [facility] [employer] Method Time Signature Urine Culture No growth 12/21/2021 DTL after 1 day 8:03 AM CDT of incubation. Specimen Anatomical Collection Method Collection Time Receive d Time (Source) Location / / Volume Laterality Urine (Urine, 12/20/2021 4:17 AM 12/21/19 7:48 Midstream) CDT AM CDT Comment: Specimen Source Site: Urine Harinder Nguyễn M.D. LAB MICROBIOLOGY - GENERAL O RDERABLES Performing Organization Address City/[facility] Phon e Number [facility] - [address] [place], [place] [address] [facility] [place] [place] [address] Laboratories-[place] [address] [facility] Urinalysis with Microscopic: Urine, Midstream (12/20/2021 4:17 AM CDT) [facility] [employer] Method Time Signature Source Urine, Urine, 12/20/2021 [...] M.D. LAB URINE ORDERABLES Performing Organization Address City/[facility] Phon e Number [facility] - [address] [place], [place] [address] [facility] [place] [address] [facility] [address] Lactate (12/20/2021 3:36 AM CDT) P athologist Signature Lactate, P 1.8 0.5 - 2.2 12/20/2021 [facility] mmol/L 3:54 AM CDT Specimen Anatomical Collection Method Collection Time Receive d Time (Source) Location / / Volume Laterality Blood (Blood, 12/20/2021 3:36 AM 12/21/19 3:41 Venous) CDT AM CDT Harinder Nguyễn M.D. LAB BLOOD NON ADD-ON Performing Organization Address City/[facility] Phon e Number [facility] - 200 [place], [place] [address] [facility] [place] [address] Laboratories-[address] Lipase (12/20/2021 3:36 AM CDT) P athologist Signature Lipase, S 36 13 - 60 U/L 12/20/2021 4:45 DTL AM CDT Specimen Anatomical Collection Method Collection Time Receive d Time (Source) Location / / Volume Laterality Blood (Blood, 12/20/2021 3:36 AM 12/21/19 4:00 Venous) CDT AM CDT Harinder Nguyễn M.D. LAB BLOOD ADD-ON Performing Organization Address City/[facility] Phon e Number [facility] - 200 [place], [place] [address] [facility] DTL [place], [place] [address] [place] [address] (ABNORMAL) Hepatic Function Panel (12/20/2021 3:36 AM [...] M.D. LAB BLOOD ADD-ON Performing Organization Address City/[facility] Phon e Number [facility] - [address] [place], [place] [address] [facility] [place] [address] Laboratories-[address] hCG (Human Chorionic Gonadotropin), Quantitative, (12/20/2021 3:36 AM CDT) P athologist Signature HCG, 0.5 <5 IU/L 12/20/2021 [facility] Quantitative, 4:31 AM CDT , P Specimen Anatomical Collection Method Collection Time Receive d Time (Source) Location / / Volume Laterality Blood (Blood, 12/20/2021 3:36 AM 12/21/19 3:41 Venous) CDT AM CDT Harinder Nguyễn M.D. LAB BLOOD ADD-ON Performing Organization Address City/[facility] Phon e Number [facility] - 200 [place], [place] [address] [facility] [place] [place] [address] Laboratories-[address] (ABNORMAL) Basic Metabolic Panel (12/20/2021 3:36 [...] CDT eGFR-Black/Afri 81 >=60 12/20/2021 [facility] can Palauan mL/min/BSA 4:08 AM CDT Comment: ----ADDITIONAL INFORMATION---- [...] EMERGENCY ROOM LABORATORIES - [address] [place], [place] [address] [place] [address] [facility] [address] (ABNORMAL) CBC with Differential, Blood (12/20/2021 3:36 AM CDT) [facility] Method Time Signature Hemoglobin 8.0 (L) [...] EMERGENCY ROOM LABORATORIES - [address] [place], [place] [address] [place] [address] [facility] [address] documented in this [...] documented as of this encounter Care Teams Moss Gatherer Relationship Specialty Start Date End Date Ana Red P.A.-C. PCP - General Internal Medicine 12/01/[address] [place] [address] [place] [phone] [facility] 08/25/21 Ervin Schroeder MD Referring Provider Family Medicine 03/24/[address] [place] [address] [place] [address] documented as of this encounter
--- OUTSIDE RECORDS SUMMARY | 2022-02-14 22:03 | XMS_ITS | Encounter Summary ---
:1990 Author Organization [facility] Address [address] [place] [address] Care Team Providers Name Role Phone Ana Red P.A.-C. Primary Care Provider [phone] Encounter Details Date Type Department Care Team Description 01/07/2022 Patient Self-Triage [facility] C[facility] Symptom Band Tier, Provider Social History Tobacco Use Types Packs/Day [...] you attend sikhism or Patient refused 2021 amish services? 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 [address] [place] [phone] Virtual Visit Transplant Matthew Jerome 2 YTyrell M.D. [address] [place] [phone] Office Visit Gastroenterology and Queenie Matthew 2 Hepatology Tyrell Rodriguez M.D. [address] [place] [address] [phone] Appointment Radiology Queenie Matthew 2 YTyrell M.D. [address] [place] [phone] Hospital Gastroenterology and [facility] Cirrhos is Alcoholic (HCC) 2 Encounter Hepatology Tyrell Rodriguez M.D. [address] [place] [address] [phone] Anesthesia Event Gastroenterology and [facility], 2 Hepatology Ervin Burgos M.D. [address] [place] [phone] Surgery Gastroenterology and [facility] ESOPHAG OGASTRODUODENOSCOPY 2 Hepatology Tyrell Rodriguez M.D. [address] [place] [address] [phone] Scheduled Procedures Name Priority Associated Diagnoses Date/Time ESOPHAGOGASTRODUODENOSCOPY Cirrhosis Alc oholic (HCC) 03/20/2022 8:45 AM INFORMATION TECHNOLOGY SECURITY MANAGER Hypertension Portal (HCC) documented as of this encounter Visit Diagnoses Not on filedocumented in this encounter Additional Health Concerns Assessment Noted Time PHQ-9 Depression Total Score: 10 10/06/2021 5:00 PM CD T documented as of this encounter Care Teams Technical Customer Support Specialist Relationship Specialty Start Date End Date Ana Red P.A.-C. PCP - General Internal Medicine 12/01/[address] [place], [place] [address]ADI Montoya [phone] [facility]- [place] lab 08/25/21 Ervin Schroeder MD Referring Provider Family Medicine 03/24/[address] [place] [address] ADI Mejía [phone] documented as of this encounter
--- OUTSIDE RECORDS SUMMARY | 2022-02-14 22:03 | XMS_ITS | Encounter Summary ---
:1990 Author Organization [facility] Address [address] [place] [address] Care Team Providers Name Role Phone Ana Red P.A.-C. Primary Care Provider [phone] Reason for Referral Transplant (Routine) - Authorized Specialty Diagnoses / Procedures Referred By Contact Refer red To Contact Transplant [facility] / [facility] MonicaSZara, M.S.W. [address] [place] [address] Referral ID Status Reason Start Date Expiration Date Visits V isits Requested Authorized [id number] Authorized 01/13/2022 01/12/2025 1 1 Scheduling Instructions Please schedule a follow up visit with Jt vasquez [facility] Psychiat[facility]. Patient prefers video visit. Thank you. Encounter Details Date Type Department Care Team Description 01/13/2022 Orders Only Department of Social Work Rajiv Tan, in [facility] Vinay.S.W., M.S.W. 200 [facility] [address] [place] [address] [place] [address] [phone] (Wo rk) Social History Tobacco Use Types [...] you attend jain or Patient refused 2021 jain services? 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 [address] [place] [phone] Appointment Gastroenterology demian Silver 2 Hepatology Yue Burciaga M.D. [address] [place] [phone] Virtual Visit Transplant Matthew Jerome 2 Tyrell Rodriguez M.D. [address] [place] [phone] Office Visit Gastroenterology and Matthew Jerome 2 Hepatology Tyrell Rodriguez M.D. [address] [place] [phone] Appointment Radiology Matthew Jerome 2 YTyrell M.D. [address] [place] [phone] Hospital Gastroenterology and Queenie Matthew Cirrhos is Alcoholic (HCC) 2 Encounter Hepatology Vik RodriguezBLilian Bedolla [address] [place] [address] [phone] Anesthesia Event Gastroenterology and Rl, [place] Hepatology Ervin Burgos M.D. [address] [place] [address] [phone] Surgery Gastroenterology and Matthew Jerome ESOPHAG OGASTRODUODENOSCOPY 2 Hepatology YTyrell M.D. [address] [place] [phone] Scheduled Procedures Name Priority Associated Diagnoses Date/Time ESOPHAGOGASTRODUODENOSCOPY Cirrhosis Alc oholic (HCC) 03/20/2022 8:45 AM MEDICAL ASSISTANT SECRETARY Hypertension Portal (HCC) Scheduled Referrals Name Type Priority Associated Order Schedule Diagnoses Transplant Liver Outpatient Referral Routine Expe cted: office visit 01/13/2022 (clinic) (Approximate), Expires: 04/14/2023 documented as of this encounter Visit Diagnoses Not on filedocumented in this encounter Additional Health Concerns Assessment Noted Time PHQ-9 Depression Total Score: 10 10/06/2021 5:00 PM CD T documented as of this encounter Care Teams Barrel Endshake Adjuster Relationship Specialty Start Date End Date Ana Red P.A.-C. PCP - General Internal Medicine 12/01/[address] [place] [phone] [facility]- [place] lab 08/25/21 Ervin Schroeder MD Referring Provider Family Medicine 03/24/[address] [place] [address] documented as of this encounter
--- OUTSIDE RECORDS SUMMARY | 2022-02-14 22:03 | XMS_ITS | Encounter Summary ---
:1990 Author Organization [facility] Address [address] [place] [address] Care Team Providers Name Role Phone Ana Red P.A.-C. Primary Care Provider [phone] Encounter Details Date Type Department Care Team Description 12/27/2021 Patient Self-Triage [facility] CARE Symptom Food And Beverage Coordinator, Provider Social History Tobacco Use Types Packs/Day [...] you attend restoration or Patient refused 2021 scientologist services? 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 [address] [place] [phone] Virtual Visit Transplant Matthew Jerome 2 YTyrell M.D. [address] [place] [phone] Office Visit Gastroenterology and Queenie Matthew 2 Hepatology Tyrell Rodriguez M.D. [address] [place] [address] [phone] Appointment Radiology Queenie Matthew 2 YTyrell M.D. [address] [place] [phone] Hospital Gastroenterology and [facility] Cirrhos is Alcoholic (HCC) 2 Encounter Hepatology Tyrell Rodriguez M.D. [address] [place] [address] [phone] Anesthesia Event Gastroenterology and [facility], 2 Hepatology Ervin Burgos M.D. [address] [place] [phone] Surgery Gastroenterology and [facility] ESOPHAG OGASTRODUODENOSCOPY 2 Hepatology Tyrell Rodriguez M.D. [address] [place] [address] [phone] Scheduled Procedures Name Priority Associated Diagnoses Date/Time ESOPHAGOGASTRODUODENOSCOPY Cirrhosis Alc oholic (HCC) 03/20/2022 8:45 AM ICE CREAM FREEZER ASSISTANT Hypertension Portal (HCC) documented as of this encounter Visit Diagnoses Not on filedocumented in this encounter Additional Health Concerns Assessment Noted Time PHQ-9 Depression Total Score: 10 10/06/2021 5:00 PM CD T documented as of this encounter Care Teams Travel Rn Relationship Specialty Start Date End Date Ana Red P.A.-C. PCP - General Internal Medicine 12/01/[address] [place], [place] [address]ADI Montoya [phone] [facility]- [place] lab 08/25/21 Ervin Schroeder MD Referring Provider Family Medicine 03/24/[address] [place] [address] ADI Mejía [phone] documented as of this encounter
--- OUTSIDE RECORDS SUMMARY | 2022-02-14 22:03 | XMS_ITS | Encounter Summary ---
:1990 Author Organization [facility] Address [address] [place] [address] Care Team Providers Name Role Phone Ana Red P.A.-C. Primary Care Provider [phone] Reason for Referral Transplant (Routine) - Closed Specialty Diagnoses / Procedures Referred By Contact Refer red To Contact Transplant Surgery / Adeline Frazier Royer Transplant Lilian Gannon, Ph.D. [address] [place] [phone] Referral ID Status Reason Start Date Expiration Date Visits Requ ested Visits Authorized [id number] Closed 01/13/2022 01/12/2025 1 1 Scheduling Instructions Lab work to be done on her next visit to [place] Reason for Visit Transplant (Routine) - Closed Specialty Diagnoses / Procedures Referred By Contact Refer red To Contact Transplant Surgery / Adeline Frazier Royer Transplant Lilian Gannon, Ph.D. [address] [place] [phone] Referral ID Status Reason Start Date Expiration Date Visits Requ ested Visits Authorized [id number] Closed 10/10/2021 10/10/2022 1 1 Encounter Details Date Type Department Care Team Description 01/13/2022 Telemedicine Adeline Antoine M.D., Ph.D. [address] [place] [phone] Moderate Or Severe [facility] Cathleen Elena Loretta Use Disorder Transplantation and (Depende nce) Alcohol Clinical Regeneration in [facility] ission ([facility]) [place], [place] (Primary Dx) [address] [place] [address] Social History Tobacco Use Types Packs/Day [...] you attend jewish or Patient refused 2021 confucianism services? 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 Gender: female Address: [address] [place] [phone] Appointment conducted via real-time audio/video technology by GARY Coleman in [facility] to the patient in [place] [phone] C-124. . CHIEF COMPLAINT / REASON FOR VISIT Transplant Addiction Psychiatry Individual follow up session Pre-transplant, Liver Supervising Wetlands Technician: Dr. Marva Frazier M.D. Ph.D Total Counseling Time: 15 Minutes HISTORY OF PRESENT ILLNESS I had the opportunity to review the patient's medical record as it relates to transplant addiction psychiatry. The patient is a 31 y.o. female from [place], [place]. Today, the patient is presenting alonefrom [...] by history; currently medicinal cannabis use #3 Correction Use Of Opiate Analgesic #4 Nicotine Dependence Cigarettes #5 Mood Disorder Unspecified #6 Anxiety Disorder Unspecified #7 Eating disorder (purging and restricting), by history #8 Chronic Pain Syndrome #9 Hepatic Encephalopathy moderate COUNSELOR IMPRESSION: The patient is a pleasant 31 year old single woman calling in from a hospital room in [facility]. She reports being hospitalized with encephalopathy confusion. She verbalized a great deal of commitment to enter treatment and to do whatever I have to to get a transplant. She reports having begun the intake process for [facility]'s virtual Addiction Treatment Program. She is aware [...] management per Radhames Neumann, Ph.D., L.P. in [place] Transplant Psychiatry (Pain Rehabilitation), 10/06/2021: - virtual [...] the patient via the portal and via [facility]. Upon it'sreturn we can check her insurance coverage for [facility] virtual Outpatient Addiction Treatment Program. If her [...] Radiology Matthew Jerome 2, M.B.B.S., M.D. [address] [place] [phone] Appointment Gastroenterology and Adrianne, 2 Hepatology Yue Burciaga M.D. [address] [place] [phone] Virtual Visit Transplant Matthew Jerome 2 YTyrell M.D. [address] [place] [phone] Office Visit Gastroenterology and Matthew Jerome 2 Hepatology Tyrell Rodriguez M.D. [address] [place] [phone] Appointment Radiology LuisMatthew abdul 2 YTyrell M.D. [address] [place] [phone] Hospital Gastroenterology and Queenie Matthew Cirrhos is Alcoholic (HCC) 2 Encounter Hepatology Tyrell Rodriguez M.D. [address] [place] [phone] Anesthesia Event Gastroenterology and Rl, 2 Hepatology Ervin Burgos M.D. [address] [place] [phone] Surgery Gastroenterology and Queenie Matthew ESOPHAG OGASTRODUODENOSCOPY 2 Hepatology Tyrell Rodriguez M.D. 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 Hypertension Portal (HCC) Scheduled Referrals Name Type Priority Associated Order Schedule Diagnoses Transplant Liver Outpatient Referral Routine Expe cted: office visit 02/12/2022 (clinic) (Approximate), Expires: 01/13/2023 documented as of this encounter Results Ethyl Glucuronide Screen with Reflex, Urine (02/12/2022 10:29 AM CDT) [facility] Time Signature Ethyl Negative Cutoff: 02/12/2022 SDSC Glucuronide Scrn 500 ng/mL 2:35 PM CDT w/Reflex, U Comment: ----ADDITIONAL INFORMATION---- This test was developed and its performa nce characteristics determined by [facility] in a manner consistent with [...] Organization Address City/State/ZIP Code Phon e Number [facility] [address] [place] [address] [place] Drug Abuse Survey with Confirmation, Urine (02/12/2022 10:29 AM CDT) [facility] Method Time Signature Alcohol Negative Cutoff: 10 [...] Organization Address City/State/ZIP Code Phon e Number [facility] [address] [place] [address] [place] [phone] [place] [address] [place] documented in this encounter Visit Diagnoses Diagnosis Cirrhosis Alcoholic (HCC) Hypertension Portal (HCC) Moderate Or Severe Use Disorder (Depende nce) Alcohol Remission (HCC) - Primary Cirrhosis Alcoholic (HCC) Hypertension Portal (HCC) documented in this encounter Additional Health Concerns Assessment Noted Time PHQ-9 Depression Total Score: 10/06/2021 5:00 PM CD T documented as of this encounter Care Teams Coil Tester Relationship Specialty Start Date End Date Ana Red P.A.-C. PCP - General Internal Medicine 12/01/[address] [place] [phone] [facility]- [place] lab 08/25/21 Ervin Schroeder MD Referring Provider Family Medicine 03/24/[address] [place] [address] documented as of this encounter
--- OUTSIDE RECORDS SUMMARY | 2022-02-14 22:03 | XMS_ITS | Encounter Summary ---
:1990 Author Organization [facility] Address [address] [place] [address] Care Team Providers Name Role Phone Ana Red P.A.-C. Primary Care Provider [phone] Encounter Details Date Type Department Care Team Description 01/13/2022 Clinical Communication Division of Digna Campbell Gastroenterology in Lilian Schaefer [place], [place] [address] [facility] [address] [place] [phone] Social History Tobacco Use Types Packs/Day Years [...] attend roman catholic or Patient refused 2021 restorationist services? Do you belong to any clubs or No 02/10/2022 organizations such as roman catholic groups, unions, fraFamilonet or athletic groups, or school groups? 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 [address] [place] [phone] Virtual Visit Transplant Matthew Jerome 2 YJoshuaB.BLilian Bedolla [address] [place] [phone] Office Visit Gastroenterology and [facility] 2 Hepatology Tyrell Rodriguez M.D. [address] [place] [phone] Appointment Radiology Luischantell Matthew 2 YTyrell M.D. [address] [place] [phone] [address] G[address]enterology and [facility] Cirrhos is Alcoholic (HCC) 2 Encounter Hepatology Tyrell Rodriguez M.D. [address] [place] [phone] Anesthesia Event Gastroenterology and Rl, 2 Hepatology Ervin Burgos M.D. [address] [place] [address] [phone] Surgery [address]ology and [facility] ESOPHAG OGASTRODUODENOSCOPY 2 Hepatology Tyrell Rodriguez M.D. [address] [place] [phone] Scheduled Procedures Name Priority Associated Diagnoses Date/Time ESOPHAGOGASTRODUODENOSCOPY Cirrhosis Alc oholic (HCC) 03/20/2022 8:45 AM DIRECTOR REPORT Hypertension Portal (HCC) documented as of this encounter Results (ABNORMAL) CBC with Differential, Blood (01/20/2022 12:07 PM CDT) [facility] Method Time Signature Hemoglobin 7.4 [...] Code Phon e Number [facility]- [address] [place] [address] [facility] [address] [place] [address] System in [place] [address] (ABNORMAL) Comprehensive Metabolic Panel [...] Code Phon e Number [facility]- [address] [place] [address] [facility] [place] [address] System in [place] [address] documented in this encounter Visit Diagnoses Diagnosis Cirrhosis Alcoholic (HCC) Hypertension Portal (HCC) Hepatic Failure Unspecified Without Coma (HCC) - Primary Cirrhosis Alcoholic (HCC) Hypertension Portal (HCC) documented in this encounter Additional Health Concerns Assessment Noted Time PHQ-9 Depression Total Score: 10 10/06/2021 5:00 PM CD T documented as of this encounter Care Teams Outbound Telemarketing Representative Relationship Specialty Start Date End Date Ana Red P.A.-C. PCP - General Internal Medicine 12/01/[address] [place] [phone] [facility]- [place] lab 08/25/21 Ervin Schroeder MD Referring Provider Family Medicine 03/24/[address] [place] [address] documented as of this encounter
--- OUTSIDE RECORDS SUMMARY | 2022-02-14 22:03 | XMS_ITS | Encounter Summary ---
:1990 Author Organization [facility] Address [address] [place] [address] Care Team Providers Name Role Phone Ana Red P.A.-C. Primary Care Provider [phone] Reason for Referral Outpatient (Routine) - Authorized Specialty Diagnoses / Procedures Referred By Contact Refer red To Contact Diagnoses Ascites Chronic Matthew Jerome M.B.B.SSuma, [facility] Procedures US Paracentesis with Imaging Guidance MJules [address] [place] [phone] Referral ID Status Reason Start Date Expiration Date Visits V isits Requested Authorized [id number] Authorized 11/19/2021 11/19/2022 1 1 Outpatient (Routine) - Pending Review Specialty Diagnoses / Procedures Referred By Contact Refer red To Contact Diagnoses Ascites Chronic Matthew Jerome M.B.BSumaSSuma, [facility] Procedures US Paracentesis with Imaging Guidance M.DSuma [address] [place] [address] [phone] Referral ID Status Reason Start Date Expiration Date Visits V isits Requested Authorized [id number] Pending 01/06/2022 01/06/2023 1 1 Review Outpatient (Routine) - Authorized Specialty Diagnoses / Procedures Referred By Contact Refer red To Contact Diagnoses Ascites Chronic Matthew Jerome M.B.B.S., [facility] Procedures US Paracentesis with Imaging Guidance M.D. [address] [place] [phone] Referral ID Status Reason Start Date Expiration Date Visits V isits Requested Authorized [id number] Authorized 11/19/2021 11/19/2022 1 1 Outpatient (Routine) - Closed Specialty Diagnoses / Procedures Referred By Contact Refer red To Contact Diagnoses Ascites Chronic Matthew Jerome M.B.B.S., [facility] Procedures US Paracentesis with Imaging Guidance M.DSuma [address] [place] [phone] Referral ID Status Reason Start Date Expiration Date Visits Requ ested Visits Authorized [id number] Closed 11/19/2021 11/19/2022 1 1 Encounter Details Date Type Department Care Team Description 01/06/2022 Clinical Communication Department of Felicita Spicer Gastroenterology in [place], [place] [phone] [address] [place] [phone] Social History Tobacco Use Types Packs/Day [...] you attend zoroastrianism or Patient refused 2021 taoist services? 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 [address] [place] [address] [phone] Appointment Gastroenterology and Adrianne, 2 Hepatology Yue Burciaga M.D. [address] [place] [phone] Virtual Visit Transplant Matthew Jerome 2 Tyrell Rodriguez M.D. [address] [place] [address] [phone] Office Visit Gastroenterology and Matthew Jerome 2 Hepatology Tyrell Rodriguez M.D. [address] [place] [address] [phone] Appointment Radiology Matthew Jerome 2 Tyrell Rodriguez M.D. [address] [place] [address] [phone] Hospital Gastroenterology and Matthew Jerome Cirrhos is Alcoholic (HCC) 2 Encounter Hepatology Tyrell Rodriguez M.D. [address] [place] [address] [phone] Anesthesia Event Gastroenterology and Rl, 2 Hepatology Ervin Burgos M.D. [address] [place] [address] [phone] Surgery Gastroenterology and Mousa, Matthew ESOPHAG OGASTRODUODENOSCOPY 2 Hepatology Tyrell Rodriguez M.D. [address] [place] [phone] Scheduled Orders Name Type Priority Associated [...] Alc oholic (HCC) 03/20/2022 8:45 AM EMERGENCY DEPARTMENT PHYSICIAN Hypertension Portal (HCC) documented as of [...] ordering provider request. EP Matthew Santillan M.D. [facility] [place] PROCEDURES documented in this encounter Visit [...] documented as of this encounter Care Teams Flexo Operator Relationship Specialty Start Date End Date Ana Red P.A.-C. PCP - General Internal Medicine 12/01/[address] [place] [phone] [facility]- [place] lab 08/25/21 Ervin Schroeder MD Referring Provider Family Medicine 03/24/[address] [place] [address] [phone] documented as of this encounter
--- OUTSIDE RECORDS SUMMARY | 2022-02-14 22:03 | XMS_ITS | Encounter Summary ---
:1990 Author Organization [facility] Address [address] [place] [address] Care Team Providers Name Role Phone Ana Red P.A.-C. Primary Care Provider Reason for Visit Reason Comments Ascites Shortness of Breath Encounter Details Date Type Department Care Team Description 12/21/2021 Emergency [facility] Katrin Gonzalez M.D., Ph.D. [address] [place] [phone] Ascites (Primary Dx) Emergency Department Clifton Liu M.D. [address] [place] [phone] [address] [place] [address] Social History Tobacco Use [...] you attend christianity or Patient refused 2021 moravian services? 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 Authorized by: Clifton Liu M.D. [...] Care for this patient was transferred to id at shift change. Please see associated documentation [...] she needs to follow up with her obstetrical anesthesiologist to schedule the outpatient. DIFFERENTIAL DIAGNOSIS Liver [...] Radiology Matthew Jerome 2 YTyrell M.D. [address] [place] [phone] Appointment Gastroenterology and [place], 2 Hepatology Yue Burciaga M.D. [address] [place] [phone] Virtual Visit Transplant Matthew Jerome 2 YTyrell M.D. [address] [place] [phone] Office Visit Gastroenterology and [facility] 2 Hepatology Tyrell Rodriguez M.D. [address] [place] [phone] [facility] 2 Tyrell Rodriguez, Lilian [address] [place] [phone] Hospital G[address]enterology and [facility] Cirrhos is Alcoholic (HCC) 2 Encounter Hepatology Tyrell Rodriguez M.D. [address] [place] [phone] Anesthesia Event Gastroenterology and Rl, 2 Hepatology Ervin Burgos M.D. [address] [place] [phone] [address] [facility] ESOPHAG OGASTRODUODENOSCOPY 2 Hepatology Tyrell Rodriguez, Lilian [address] [place] [phone] Scheduled Procedures Name Priority Associated Diagnoses Date/Time ESOPHAGOGASTRODUODENOSCOPY Cirrhosis Alc oholic (HCC) 03/20/2022 8:45 AM VICE PRESIDENT OF TALENT ACQUISITION Hypertension Portal (HCC) documented as of this [...] by provider) 20 mL, infiltration, Once, On 8/21/22 at 0321, For 1 dose LORazepam tablet 0.5 mg (ATIVAN) (COMPLETED) 0554 (Given - Provider: Nataliia Granados R.N.) 0.5 mg, oral, Once, On 12/21/21 at 0549, For 1 dose documented in this encounter Additional Health Concerns Assessment Noted Time PHQ-9 Depression Total Score: 10 10/06/2021 5:00 PM CD T documented as of this encounter Care Teams A And P Mechanic Relationship Specialty Start Date End Date Ana Red P.A.-C. PCP - General Internal Medicine 12/01/[address] [place] [phone] [facility] [place] lab 08/25/21 Ervin Schroeder MD Referring Provider Family Medicine 03/24/[address] [place] [address] [phone] documented as of this encounter
--- OUTSIDE RECORDS SUMMARY | 2022-02-14 22:03 | XMS_ITS | Encounter Summary ---
:1990 Author Organization [facility] Address [address] [place] [address] Care Team Providers Name Role Phone Ana Red P.A.-C. Primary Care Provider [phone] Reason for Visit Transplant (Routine) - Closed Specialty Diagnoses / Procedures Referred By Contact Refer red To Contact Transplant Surgery / Joel [facility] L.I.C.S.W., M.S.W. [address] [place] [address] Referral ID Status Reason Start Date Expiration Date Visits Requ ested Visits Authorized [id number] Closed 10/29/2021 10/29/2022 1 1 Encounter Details Date Type Department Care Team Description 01/13/2022 Telemedicine Joel Sage hosis Alcoholic Center for L, L.I.C.S.W., (HCC) (Primar y Dx) Transplantation and M.S.W. Clinical Regeneration in [address] [place], [place] [address] [facility] [address] [place] [address] [phone] Social History Tobacco Use Types Packs/Day Years [...] you attend anabaptist or Patient refused 2021 orthodox services? 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 - 01/13/2022 10:45 AM CDT Consult conducted remotely via real-time audio/video technology through HIPAA compliant Zoom by Shala Shields, M.S.W. to the patient at her hospital room: [id number]. This Video Visit was performed during the [...] follow up. She is currently hospitalized at [facility]. 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 He stated he has spoken with his [...] medical marijuana. She stated [facility], Ana Red PA-C, at [facility], whom she states has prescribed herFlexeril due to a pulled muscle in the patient's back and also back spasms. The patient is wonderingabout working with physical therapy after her discharge from the hospital. I advised the patient to contact her nurse and/or doctor while she is currently hospitalized to inquire about this and have also informed inpatient social psychologist, Alexei Deshpande [facility], about the patient's inquiry. The patient stated [...] management per Radhames Neumann, Ph.D., L.P. in [facility] ([facility] Rehabilitation), 10/06/2021: - virtual [...] her in the mail in regards to [facility]'s outpatient addiction program and believes they are [...] patient met with Dr. Keen with [facility] on 10/22/2021 who indicatedthe following: She [...] Matthew Jerome 2 Vik RodriguezBLilian Bedolla [address] [place] [phone] Appointment Gastroenterdina and [place]ne, 2 Hepatology Yue Burciaga M.D. [address] [place] [phone] Virtual Visit Transplant LuischantellMatthew 2 Joshua RodriguezBSumaBLilian Bedolla [address] [place] [phone] Office Visit Gastroenterology and Matthew Jerome 2 Hepatology Vik RodriguezBLilian Bedolla [address] [place] [phone] Appointment Radiology Matthew Jerome 2 YTyrell M.D. [address] [place] [phone] Hospital Gastroenterology and [facility] Cirrhos is Alcoholic (HCC) 2 Encounter Hepatology Tyrell Rodriguez M.D. [address] [place] [phone] Anesthesia Event Gastroenterology and Rl, 2 Hepatology Ervin Burgos M.D. [address] [place] [phone] Surgery Gastroenterology and [facility] ESOPHAG OGASTRODUODENOSCOPY 2 Hepatology Tyrell Rodriguez M.D. [address] [place] [phone] Scheduled Procedures Name Priority Associated Diagnoses Date/Time ESOPHAGOGASTRODUODENOSCOPY Cirrhosis Alc oholic (HCC) 03/20/2022 8:45 AM MEDICAL ATTENDANT Hypertension Portal (HCC) documented as of this encounter Visit Diagnoses Diagnosis Cirrhosis Alcoholic (HCC) Hypertension Portal (HCC) Cirrhosis Alcoholic (HCC) - Primary Cirrhosis Alcoholic (HCC) Hypertension Portal (HCC) documented in this encounter Additional Health Concerns Assessment Noted Time PHQ-9 Depression Total Score: 10 10/06/2021 5:00 PM CD T documented as of this encounter Care Teams Paint Tinter Relationship Specialty Start Date End Date Ana Red P.A.-C. PCP - General Internal Medicine 12/01/[address] [place] [address] ADI Chua [phone] [facility] [place] lab 08/25/21 Ervin Schroeder MD Referring Provider Family Medicine 03/24/[address] [place] [address] ADI Mejía [id number] documented as of this encounter
--- OUTSIDE RECORDS SUMMARY | 2022-02-14 22:03 | XMS_ITS | Encounter Summary ---
:1990 Author Organization [facility] Address [address] [place] [address] Care Team Providers Name Role Phone Ana Red P.A.-C. Primary Care Provider [phone] Encounter Details Date Type Department Care Team Description 12/18/2021 Orders Only Department of Mousa, Matthew Y, Mood Disorde r (HCC) (Primary Dx); Gastroenterology in [place].Joshua Hudson Anxiety Disorder Unspecified [place], [place] [address] [facility] [address] [place] [phone] [phone] Social History Tobacco Use Types Packs/Day Years [...] you attend voodoo or Patient refused 2021 mormon services? Do [...] Date Recorded Female 04/12/2021 7:39 PM DIE REPAIR documented as of this encounter Plan of Treatment Upcoming Encounters Date Type Specialty Care Team Description Telemedicine Transplant 2 Appointment Radiology Matthew Jerome 2 Y MSumaB.B.SSuma, Lilian [address] [place] [phone] Appointment Gastroenterology and [place], 2 Hepatology Yue Burciaga M.D. [address] [place] [phone] Virtual Visit Transplant Matthew Jerome 2 Y M.B.B.Lilian [place] [address] [place] [phone] Office Visit Gastroenterology and [facility] 2 Hepatology Tyrell Rodriguez M.D. [address] [place] [phone] Appointment Radiology [facility] Matthew 2 Tyrell Rodriguez M.D. [address] [place] [phone] [facility] Gastroenterology and [facility] Cirrhos is Alcoholic (HCC) 2 Encounter Hepatology Tyrell Rodriguez M.D. [address] [place] [phone] Anesthesia Event Gastroenterology and Rl, 2 Hepatology Ervin Burgos M.D. [address] [place] [phone] Surgery Gastroenterology and [facility] ESOPHAG OGASTRODUODENOSCOPY 2 Hepatology Tyrell Rodriguez M.D. [address] [place] [phone] Scheduled Procedures Name Priority Associated Diagnoses Date/Time ESOPHAGOGASTRODUODENOSCOPY Cirrhosis Alc oholic (HCC) 03/20/2022 8:45 AM DIE REPAIR Hypertension Portal (HCC) documented as of this encounter Visit Diagnoses Diagnosis Cirrhosis Alcoholic (HCC) Hypertension Portal (HCC) Mood Disorder (HCC) - Primary Anxiety Disorder Unspecified Cirrhosis Alcoholic (HCC) Hypertension Portal (HCC) documented in this encounter Additional Health Concerns Assessment Noted Time PHQ-9 Depression Total Score: 10 10/06/2021 5:00 PM CD T documented as of this encounter Care Teams Salon Supervisor Relationship Specialty Start Date End Date Ana Red P.A.-C. PCP - General Internal Medicine 12/01/[address] [place] [address] BAYADI ALMARAZ [phone] [facility] 08/25/21 Ervin Schroeder MD Referring Provider Family Medicine 03/24/[address] [place] [address] IsabelaADI almaraz [address] documented as of this encounter
--- OUTSIDE RECORDS SUMMARY | 2022-02-14 22:04 | XMS_ITS | Encounter Summary ---
:1990 Author Organization [facility] Address [address] [place] [address] Care Team Providers Name Role Phone Ana Red P.A.-C. Primary Care Provider [phone] Encounter Details Date Type Department Care Team Description 12/02/2021 Clinical Communication Division of [facility] Slick Andino, Internal Medicine, Callie., M[facility] [place] in [address] [place] [address] [place] [phone] [place], [place] [phone] (Work) [phone] Social History Tobacco Use Types Packs/Day Years [...] you attend congregational or Patient refused 2021 anglican services? 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 [address] [place] [phone] Virtual Visit Transplant Matthew Jerome 2 YJoshuaB.B.Lilian Stockton [address] [place] [phone] Office Visit Gastroenterology and [facility] 2 Hepatology Tyrell Rodriguez M.D. [address] [place] [phone] Appointment Radiology [facility] Matthew 2 YTyrell M.D. [address] [place] [phone] Hospital Gastroenterology and [facility] Cirrhos is Alcoholic (HCC) 2 Encounter Hepatology Tyrell Rodriguez M.D. [address] [place] [phone] Anesthesia Event Gastroenterology and Rl, 2 Hepatology Ervin Burgos M.D. [address] [place] [phone] Surgery Gastroenterology and [facility] ESOPHAG OGASTRODUODENOSCOPY 2 Hepatology Tyrell Rodriguez M.D. 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 PCP - General Internal Medicine 12/01/[address] [place] [address] ADI Chua [phone] [facility] [place] lab 08/25/21 Ervin Schroeder MD Referring Provider Family Medicine 03/24/[address] [place], [place] [phone] documented as of this encounter
--- OUTSIDE RECORDS SUMMARY | 2022-02-14 22:04 | XMS_ITS | Encounter Summary ---
:1990 Author Organization [facility] Address [address] [place] [address] Care Team Providers Name Role Phone Ana Red P.A.-C. Primary Care Provider [phone] Encounter Details Date Type Department Care Team Description 12/04/2021 Clinical Communication Division of [facility], Gastroenterology in [place] Echevarria [place], [place] [address] [facility] [address] [place] [phone] Social History Tobacco Use Types Packs/Day Years [...] you attend alevism or Patient refused 2021 spiritism services? 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 [address] [place] [phone] Virtual Visit Transplant Matthew Jerome 2 Y, Tyrell, Lilian [address] [place] [phone] Office Visit Gastroenterology and [place] Matthew 2 Hepatology Tyrell Rodriguez M.D. [address] [place] [phone] Appointment Radiology Idchantell Matthew 2 YTyrell M.D. [address] [place] [phone] Hospital Gastroenterology and [facility] Cirrhos is Alcoholic (HCC) 2 Encounter Hepatology Tyrell Rodriguez M.D. [address] [place] [phone] Anesthesia Event Gastroenterology and Rl, 2 Hepatology Ervin Burgos M.D. [address] [place] [phone] Surgery Gastroenterology and [facility] ESOPHAG OGASTRODUODENOSCOPY 2 Hepatology Tyrell Rodriguez M.D. 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 PCP - General Internal Medicine 12/01/[address] [place] [address] ADI Chua [phone] [facility]- [place] lab 08/25/21 Ervin Schroeder MD Referring Provider Family Medicine 03/24/[address] [place] [address] documented as of this encounter
--- OUTSIDE RECORDS SUMMARY | 2022-02-14 22:04 | XMS_ITS | Encounter Summary ---
:1990 Author Organization [facility] Address [address] [place] [address] Care Team Providers Name Role Phone Ana Red P.A.-C. Primary Care Provider [phone] Reason for Visit Reason Comments BIANKA / Appeal Letter Encounter Details Date Type Department Care Team Description 12/03/2021 Clinical Communication Department [facility], BIANKA / Appeal Letter [facility] Internal Lilian Gee, Medicine in [facility], [address] [place], [place] 300 [facility] [id number] ADI PANIAGUA [phone] (Work) [phone] Social History Tobacco Use Types Packs/Day Years [...] you attend lutheran or Patient refused 2021 congregational services? Do [...] or the highest technical, or vocational p Voyatram degree you have received? 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 Gerard Andino's 12/03 appeal letter was faxed to [phone], confirmation was received documented in this encounter Plan of Treatment Upcoming Encounters Date Type Specialty Care Team Description Telemedicine Transplant 2 Appointment Radiology Matthew Jerome 2 YTyrell, M.D. [address] [place] [phone] Appointment Gastroenterology and [place], 2 Hepatology Yue Burciaga M.D. [address] [place] [phone] Virtual Visit Transplant Matthew Jerome 2 Tyrell Rodriguez M.D. [address] [place] [phone] Office Visit Gastroenterology and Matthew Jerome 2 Hepatology Tyrell Rodriguez M.D. [address] [place] [phone] Appointment Radiology LuisMatthew badul 2 Tyrell Rodriguez M.D. [address] [place] [phone] Hospital Gastroenterology and Matthew Jerome Cirrhos is Alcoholic (HCC) 2 Encounter Hepatology Tyrell Rodriguez M.D. [address] [place] [phone] Anesthesia Event Gastroenterology and Rl, 2 Hepatology Ervin Burgos M.D. [address] [place] [phone] Surgery Gastroenterology and Queenie Matthew ESOPHAG OGASTRODUODENOSCOPY 2 Hepatology Vik RodriguezBLilian Bedolla [address] [place] [phone] Scheduled Procedures Name Priority Associated Diagnoses Date/Time ESOPHAGOGASTRODUODENOSCOPY Cirrhosis Alc oholic (HCC) 03/20/2022 8:45 AM OVERLAY PLASTICIAN Hypertension Portal (HCC) documented as of this encounter Visit Diagnoses Not on filedocumented in this encounter Additional Health Concerns Assessment Noted Time PHQ-9 Depression Total Score: 10 10/06/2021 5:00 PM CD T documented as of this encounter Care Teams Hitch Technician Relationship Specialty Start Date End Date Ana Red P.A.-C. PCP - General Internal Medicine 12/01/[address] [place] [phone] [facility]- [place] lab 08/25/21 Ervin Schroeder MD Referring Provider Family Medicine 03/24/[address] [place] [address] [phone] documented as of this encounter
--- OUTSIDE RECORDS SUMMARY | 2022-02-14 22:04 | XMS_ITS | Encounter Summary ---
:1990 Author Organization [facility] Address [address] [place] [address] Care Team Providers Name Role Phone Ana Red P.A.-C. Primary Care Provider [phone] Encounter Details Date Type Department Care Team Description 12/04/2021 Clinical Communication Division of [facility], Gastroenterology in [place] Echevarria [place], [place] [address] [facility] [address] [place] [phone] [phone] Social History Tobacco Use Types Packs/Day Years [...] you attend scientology or Patient refused 2021 evangelical services? 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 [address] [place] [phone] Virtual Visit Transplant Matthew Jerome 2 Y, Tyrell, Lilian [address] [place] [phone] Office Visit Gastroenterology and [place] Matthew 2 Hepatology Tyrell Rodriguez M.D. [address] [place] [phone] Appointment Radiology [place] Matthew 2 YTyrell M.D. [address] [place] [phone] Hospital Gastroenterology and [facility] Cirrhos is Alcoholic (HCC) 2 Encounter Hepatology Tyrell Rodriguez M.D. [address] [place] [phone] Anesthesia Event Gastroenterology and Rl, 2 Hepatology Ervin Burgos M.D. [address] [place] [phone] Surgery Gastroenterology and [facility] ESOPHAG OGASTRODUODENOSCOPY 2 Hepatology Tyrell Rodriguez M.D. 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 PCP - General Internal Medicine 12/01/[address] [place] [address] ADI Chua [phone] [facility]- [place] lab 08/25/21 Ervin Schroeder MD Referring Provider Family Medicine 03/24/[address] [place] [phone] documented as of this encounter
--- OUTSIDE RECORDS SUMMARY | 2022-02-14 22:04 | XMS_ITS | Encounter Summary ---
:1990 Author Organization [facility] Address [address] [place] [address] Care Team Providers Name Role Phone Ana Red P.A.-C. Primary Care Provider Encounter Details Date Type Department Care Team Description 12/02/2021 Orders Only [facility] SEMN PCP TH COT Ana Red PSumaASuma-C. [address] [facility] [place] [phone] (Wo rk) Social History Tobacco [...] you attend sabianist or Patient refused 2021 pentecostalism services? Do you belong to any clubs or No 02/10/2022 organizations such as sabianist groups, unions, [email or web address] or athletic groups, or school groups? 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 [address] [place] [address] Virtual Visit Transplant Matthew Jerome 2 YTyrell M.D. [address] [place] [phone] Office Visit Gastroenterology and [facility] Matthew 2 Hepatology Tyrell Rodriguez M.D. [address] [place] [phone] Appointment Radiology Mnchantell Matthew 2 YTyrell M.D. [address] [place] [phone] Hospital Gastroenterology and [facility] Cirrhos is Alcoholic (HCC) 2 Encounter Hepatology Tyrell Rodriguez M.D. [address] [place] [phone] Anesthesia Event Gastroenterology and Rl, 2 Hepatology Ervin Burgos M.D. [address] [place] [phone] Surgery Gastroenterology and [facility] ESOPHAG OGASTRODUODENOSCOPY 2 Hepatology Tyrell Rodriguez M.D. [address] [place] [phone] Scheduled Procedures Name Priority Associated Diagnoses Date/Time ESOPHAGOGASTRODUODENOSCOPY Cirrhosis Alc oholic (HCC) 03/20/2022 8:45 AM RESTORATION SILVERSMITH Hypertension Portal (HCC) documented as of this encounter Visit Diagnoses Not on filedocumented in this encounter Additional Health Concerns Assessment Noted Time PHQ-9 Depression Total Score: 10 10/06/2021 5:00 PM CD T documented as of this encounter Care Teams Dry Plasterer Helper Relationship Specialty Start Date End Date Ana Red P.A.-C. PCP - General Internal Medicine 12/01/[address] [place] [address] Sadia BAYADI WRIGHT [phone] [facility]- [facility] 08/25/21 Ervin Schroeder MD Referring Provider Family Medicine 03/24/[address] [place] [address] documented as of this encounter
--- OUTSIDE RECORDS SUMMARY | 2022-02-14 22:04 | XMS_ITS | Encounter Summary ---
:1990 Author Organization [facility] Address [address] [place] [address] Care Team Providers Name Role Phone Ana Red P.A.-C. Primary Care Provider [phone] Encounter Details Date Type Department Care Team Description 12/02/2021 Clinical Communication Department of Internal [facility] in [facility] [address] [place] [address] [phone] Social History Tobacco Use Types Packs/Day Years [...] you attend episcopalian or Patient refused 2021 jehovah's witness services? [...] or the highest technical, or vocational p Jot[employer] degree you have received? 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 Telephone Encounter - Sunny Arnold D.O. - [...] Matthew Jerome 2 Tyrell Rodriguez M.D. [address] [place] [phone] Appointment Gastroenterology and Adrianne, 2 Hepatology Yue Burciaga M.D. [address] [place] [phone] Virtual Visit Transplant Queenie Matthew 2 Tyrell Rodriguez M.D. [address] [place] [phone] Office Visit Gastroenterology and Matthew Jerome 2 Hepatology Tyrell Rodriguez M.D. [address] [place] [phone] Appointment Radiology Matthew Jerome 2 Tyrell Rodriguez M.D. [address] [place] [phone] Hospital Gastroenterology and Queenie Matthew Cirrhos is Alcoholic (HCC) 2 Encounter Hepatology Tyrell Rodriguez M.D. [address] [place] [address] [place] [phone] Anesthesia Event Gastroenterology and Rl, 2 Hepatology Ervin Burgos M.D. [facility] [place] [phone] Surgery Gastroenterology and Mousa, Matthew ESOPHAG OGASTRODUODENOSCOPY 2 Hepatology Tyrell Rodriguez M.D. [address] [place] [phone] Scheduled Procedures Name Priority Associated Diagnoses Date/Time ESOPHAGOGASTRODUODENOSCOPY Cirrhosis Alc oholic (HCC) 03/20/2022 8:45 AM CONSERVATION POLICY ANALYST Hypertension Portal (HCC) documented as of this encounter Visit Diagnoses Not on filedocumented in this encounter Additional Health Concerns Assessment Noted Time PHQ-9 Depression Total Score: 10 10/06/2021 5:00 PM CD T documented as of this encounter Care Teams Software Quality Manager Relationship Specialty Start Date End Date Ana Red P.A.-C. PCP - General Internal Medicine 12/01/[address] [place] [phone] [facility]- [place] lab 08/25/21 Ervin Schroeder MD Referring Provider Family Medicine 03/24/[address] [place] [address] documented as of this encounter
--- OUTSIDE RECORDS SUMMARY | 2022-02-14 22:04 | XMS_ITS | Encounter Summary ---
:1990 Author Organization [facility] Address [address] [place] [address] Care Team Providers Name Role Phone Ana Red P.A.-C. Primary Care Provider [phone] Encounter Details Date Type Department Care Team Description 12/04/2021 Clinical Communication Division of Jethro, Gastroenterology in Elizabeth Echevarria [place], [place] [address] [facility] [address] [place] [phone] Social History Tobacco Use Types Packs/Day Years [...] you attend episcopalian or Patient refused 2021 evangelical services? 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 [address] [place] [phone] Virtual Visit Transplant Matthew Jerome 2 Y, Tyrell, Lilian [address] [place] [phone] Office Visit Gastroenterology and [facility] 2 Hepatology Tyrell Rodriguez M.D. [address] [place] [phone] Appointment Radiology Nmchantell Matthew 2 YTyrell M.D. [address] [place] [phone] Hospital Gastroenterology and [facility] Cirrhos is Alcoholic (HCC) 2 Encounter Hepatology Tyrell Rodriguez M.D. [address] [place] [phone] Anesthesia Event Gastroenterology and Rl, 2 Hepatology Ervin Burgos M.D. [address] [place] [phone] Surgery Gastroenterology and [facility] ESOPHAG OGASTRODUODENOSCOPY 2 Hepatology Tyrell Rodriguez M.D. [address] [place] [phone] Scheduled Procedures Name Priority Associated Diagnoses Date/Time ESOPHAGOGASTRODUODENOSCOPY Cirrhosis Alc oholic (HCC) 03/20/2022 8:45 AM TESTING MACHINE OPERATOR Hypertension Portal (HCC) documented as of this encounter Visit Diagnoses Not on filedocumented in this encounter Additional Health Concerns Assessment Noted Time PHQ-9 Depression Total Score: 10 10/06/2021 5:00 PM CD T documented as of this encounter Care Teams Incubator Tender Relationship Specialty Start Date End Date Ana Red P.A.-C. PCP - General Internal Medicine 12/01/[address] [place] [address] ADI Chua [phone] [facility]21 Ervin Schroeder MD Referring Provider Family Medicine 03/24/[address] [place] [address] documented as of this encounter
--- OUTSIDE RECORDS SUMMARY | 2022-02-14 22:04 | XMS_ITS | Encounter Summary ---
:1990 Author Organization [facility] Address [address] [place] [address] Care Team Providers Name Role Phone Ana Red P.A.-C. Primary Care Provider Encounter Details Date Type Department Care Team Description 12/12/2021 Documentation [facility] [place], [place] meena Gannon for Transplantation and Mariluz Oliva, M.S.W. Clinical Regeneration in [address] [place] [address] [address] [place] [address] [place] [address] [phone] Social History Tobacco Use Types Packs/Day Years [...] you attend hinduism or Patient refused 2021 lutheran services? Do [...] or the highest technical, or vocational p [employer] degree you have received? 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 He stated he has spoken with [...] management per Radhames Neumann, Ph.D., L.P. in [facility] ([facility]), 10/06/2021: - virtual [...] Radiology Matthew Jerome 2 YTyrell M.D. [address] [place] [phone] Appointment Gastroenterology demian Silver, 2 Hepatology Yue Burciaga M.D. [address] [place] [phone] Virtual Visit Transplant Matthew Jerome 2 YTyrell M.D. [address] [place] [phone] Office Visit Gastroenterology and Matthew Jerome 2 Hepatology Tyrell Rodriguez M.D. [address] [place] [phone] Appointment Radiology LuisMatthew abdul 2 YTyrell M.D. [address] [place] [phone] Hospital Gastroenterology and Matthew Jerome Cirrhos is Alcoholic (HCC) 2 Encounter Hepatology Tyrell Rodriguez M.D. [address] [place] [phone] Anesthesia Event Gastroenterology and Rl, 2 Hepatology Ervin Burgos M.D. [address] [place] [phone] Surgery Gastroenterology and Matthew Jerome ESOPHAG OGASTRODUODENOSCOPY 2 Hepatology Vik RodriguezBGraeme, Lilian [address] [place] [phone] Scheduled Procedures Name Priority Associated Diagnoses Date/Time ESOPHAGOGASTRODUODENOSCOPY Cirrhosis Alc oholic (HCC) 03/20/2022 8:45 AM FILLER SHREDDER HELPER Hypertension Portal (HCC) documented as of this encounter Visit Diagnoses Not on filedocumented in this encounter Additional Health Concerns Assessment Noted Time PHQ-9 Depression Total Score: 10 10/06/2021 5:00 PM CD T documented as of this encounter Care Teams Electromechanical Engineer Relationship Specialty Start Date End Date Ana Red P.A.-C. PCP - General Internal Medicine 12/01/[address] [place] [address] [place] [phone] [facility] [place] lab 08/25/21 Ervin Schroeder MD Referring Provider Family Medicine 03/24/[address] [place] [address] ADI Mejía [phone] documented as of this encounter
--- OUTSIDE RECORDS SUMMARY | 2022-02-14 22:04 | XMS_ITS | Encounter Summary ---
:1990 Author Organization [facility] Address [address] [place] [address] Care Team Providers Name Role Phone Ana Red P.A.-C. Primary Care Provider [phone] Encounter Details Date Type Department Care Team Description 12/04/2021 Clinical Communication Division of Jethro, Gastroenterology in [place] Echevarria [place], [place] [address] [facility] [address] [place] [phone] Social History Tobacco Use Types Packs/Day Years [...] you attend religious or Patient refused 2021 methodist services? 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 [address] [place] [phone] Virtual Visit Transplant Matthew Jerome 2 Y, Tyrell, Lilian [address] [place] [phone] Office Visit Gastroenterology and [place]ell Matthew 2 Hepatology Tyrell Rodriguez M.D. [address] [place] [phone] Appointment Radiology Wychantell Matthew 2 YTyrell M.D. [address] [place] [phone] Hospital Gastroenterology and [facility] Cirrhos is Alcoholic (HCC) 2 Encounter Hepatology Tyrell Rodriguez M.D. [address] [place] [phone] Anesthesia Event Gastroenterology and Rl, 2 Hepatology Ervin Burgos M.D. [address] [place] [phone] Surgery Gastroenterology and [facility] ESOPHAG OGASTRODUODENOSCOPY 2 Hepatology Tyrell Rodriguez M.D. [address] [place] [phone] Scheduled Procedures Name Priority Associated Diagnoses Date/Time ESOPHAGOGASTRODUODENOSCOPY Cirrhosis Alc oholic (HCC) 03/20/2022 8:45 AM SALES CENTER ASSOCIATE Hypertension Portal (HCC) documented as of this encounter Visit Diagnoses Diagnosis Ascites - Primary Cirrhosis Alcoholic (HCC) Cirrhosis Alcoholic (HCC) Hypertension Portal (HCC) documented in this encounter Additional Health Concerns Assessment Noted Time PHQ-9 Depression Total Score: 10 10/06/2021 5:00 PM CD T documented as of this encounter Care Teams Bridge Instructor Relationship Specialty Start Date End Date Ana Red P.A.-C. PCP - General Internal Medicine 12/01/[address] [place] [address] ADI Chua [phone] [facility] [place] lab 08/25/21 Ervin Schroeder MD Referring Provider Family Medicine 03/24/[address] [place] [address] documented as of this encounter
--- OUTSIDE RECORDS SUMMARY | 2022-02-14 22:04 | XMS_ITS | Encounter Summary ---
:1990 Author Organization [facility] Address [address] [place] [address] Care Team Providers Name Role Phone Ana Red P.A.-C. Primary Care Provider [phone] Encounter Details Date Type Department Care Team Description 12/04/2021 Documentation Division of Gastroenterology Concepción Morelos, in [facility] pedro Quintana [address] [facility] [address] [place] [address] [place], [place] [phone] (Wo rk) Social History Tobacco Use Types [...] you attend religious or Patient refused 2021 scientology services? Do you belong to any clubs or No 02/10/2022 organizations such as religious groups, unions, fraSix Month Smiles or athletic groups, or school groups? 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 - 12/04/2021 12:44 AM CDT GI fellow passport application examiner Catia Carias is a 31 y.o. female [...] is most comfortable having this done at [place]. She denies n/v, confusion, melena, hematochezia, or [...] would like to receive her care at [place]. She is planning to come to the [...] today and willing to come back to [place] (lives about 40 min away). I am working with [facility] to get her in for an outpatient para and have forwarded my note to Dr. Jerome as well. Nabila Morelos M.D. Gastroenterology Fellow documented in this encounter Plan of Treatment Upcoming Encounters Date Type Specialty Care Team Description Telemedicine Transplant 2 Appointment Radiology Matthew Jerome 2 YTyrell M.D. [address] [place] [phone] Appointment Gastroenterology and Doll, 2 Hepatology Yue Burciaga M.D. [address] [place] [phone] Virtual Visit Transplant Matthew Jerome 2 YTyrell M.D. [address] [place] [phone] Office Visit Gastroenterology and Matthew Jerome 2 Hepatology Tyrell Rodriguez M.D. [address] [place] [phone] Appointment Radiology Matthew Jerome 2 YTyrell M.D. [address] [place] [phone] Hospital Gastroenterology and [facility] [place] Cirrhos is Alcoholic (HCC) 2 Encounter Hepatology Tyrell Rodriguez, Lilian [address] [place] [phone] Anesthesia Event Gastroenterology and Rl, 2 Hepatology Ervin Burgos M.D. [address] [place] [phone] Surgery Gastroenterology and [facility] [place] ESOPHAG OGASTRODUODENOSCOPY 2 Hepatology Tyrell Rodriguez, Lilian [address] [place] [phone] Scheduled Procedures Name Priority Associated Diagnoses Date/Time ESOPHAGOGASTRODUODENOSCOPY Cirrhosis Alc oholic (HCC) 03/20/2022 8:45 AM METHODS AND PROCEDURES ANALYST Hypertension Portal (HCC) documented as of this encounter Visit Diagnoses Not on filedocumented in this encounter Additional Health Concerns Assessment Noted Time PHQ-9 Depression Total Score: 10 10/06/2021 5:00 PM CD T documented as of this encounter Care Teams Cadd Drafter Relationship Specialty Start Date End Date Ana Red P.A.-C. PCP - General Internal Medicine 12/01/[address] [place] [address] [place] [phone] [facility]- [place] lab 08/25/21 Ervin Schroeder MD Referring Provider Family Medicine 03/24/[address] [place] [address] [place] [address] documented as of this encounter
--- OUTSIDE RECORDS SUMMARY | 2022-02-14 22:04 | XMS_ITS | Encounter Summary ---
:1990 Author Organization [facility] Address [address] [place] [address] Care Team Providers Name Role Phone Ana Red P.A.-C. Primary Care Provider Reason for Referral Specialty Diagnoses / Procedures Referred By Contact Refer red To Contact Ana Red P .A.-C. [facility] Region [address] [place] [address] Referral ID Status Reason Start Date Expiration Date Visits Requ ested Visits Authorized Encounter Details Date Type Department Care Team Description 12/03/2021 Orders Only [facility] Red P.A.-[facility] [address] [place], [place] [phone] (Wo rk) Social History [...] you attend moravian or Patient refused 2021 gnosticist services? 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 [address] [place] [phone] Virtual Visit Transplant LuisMatthew abdul 2 Tyrell Rodriguez M.D. [address] [place] [phone] Office Visit Gastroenterology and Matthew Jerome 2 Hepatology Tyrell Rodriguez M.D. [address] [place] [phone] Appointment Radiology LuisMatthew abdul 2 Tyrell Rodriguez M.D. [address] [place] [phone] Hospital Gastroenterology and Matthew Jerome Cirrhos is Alcoholic (HCC) 2 Encounter Hepatology Tyrell Rodriguez M.D. [address] [place] [phone] Anesthesia Event Gastroenterology and Rl, 2 Hepatology Ervin Burgos M.D. [address] [place] [phone] Surgery Gastroenterology and Matthew Jerome ESOPHAG OGASTRODUODENOSCOPY 2 Hepatology Joshua RodriguezBSumaBLilian Bedolla [address] [place] [phone] Scheduled Procedures Name Priority Associated Diagnoses Date/Time ESOPHAGOGASTRODUODENOSCOPY Cirrhosis Alc oholic (HCC) 03/20/2022 8:45 AM LOSS PREVENTION OFFICER Hypertension Portal (HCC) Scheduled Referrals Name Type [...] as of this encounter Care Teams Manager Agricultural Relationship Specialty Start Date End Date Ana Red P.A.-C. PCP - General Internal Medicine 12/01/[address] [place] [phone] [facility] 08/25/21 Ervin Schroeder MD Referring Provider Family Medicine 03/24/[address] [place] [address] documented as of this encounter
--- OUTSIDE RECORDS SUMMARY | 2022-02-14 22:04 | XMS_ITS | Encounter Summary ---
:1990 Author Organization [facility] Address [address] [place] [address] Care Team Providers Name Role Phone Ana Red P.A.-C. Primary Care Provider [phone] Reason for Visit Reason Comments Follow-up Transplant evaluation Outpatient (Routine) - Closed Specialty Diagnoses / Referred By Contact Referred To Procedures Contact Gastroenterology and Diagnoses Cirrhosis Alcoholic (HCC) Hypertension Portal (HCC) Thrombocytopenia (HCC) Abnormal Liver Function Test Deficiency Vitamin [facility] M.B.B[facility]S., Lilian [address] [place] [address] Referral ID Status Reason Start Date Expiration Date Visits Requ ested Visits Authorized [id number] Closed 10/08/2021 10/08/2022 1 1 Encounter Details Date Type Department Care Team Description 12/10/2021 Office Visit Department of Matthew Jerome Cirrhosis Alco holic (HCC) (Primary Dx); Gastroenterology in , M.B.B.SSuma, Hyperten neptali Portal (HCC); [place], [place] Lilian Thrombocytopenia (HCC); [address] [facility] Abnormal Liver Function Test; [place] [address] [place], [place] Deficiency Vitamin A; [phone] [address] Ascites Chronic; [phone] Hepatic Encepha lopathy Without Coma (HCC) (Work) [...] you attend yarsanism or Patient refused 2021 islam services? 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 Please call Parris Tan in [place]. Please follow with the psych counselor at [...] years but intermittently. She was admitted in [place] during the month of October for about [...] she missed the voice messages from the bilingual social worker Parris Tan, and agreed to [...] out to the transplant psych team in [place] and Zenobia Hollingsworth sent the information and [...] for missing the voice messages from the bilingual social worker Parris Tan and promised me [...] October 2021 #15 Newly diagnosed PFO with iioig-bu-fymy atrial shunt: Echo done March 2020 # [...] OLAYINKA Trotter Gastroenterology, Hepatology and Transplant hepatology [facility] documented in this encounter Plan of Treatment Upcoming Encounters Date Type Specialty Care Team Description Telemedicine Transplant 2 Appointment Radiology Matthew Jerome 2, M.B.B.S., M.D. [address] [place] [phone] Appointment Gastroenterdina and Adrianne, Olinda Hepatology Yue Burciaga M.D. [address] [place] [phone] Virtual Visit Transplant Matthew Jerome 2, M.B.B.S., M.D. [address] [place] [phone] Office Visit Gastroenterology and [place] Matthew 2 Hepatology Tyrell Rodriguez M.D. [address] [place] [phone] Appointment Radiology Luischantell Matthew 2 Tyrell Rodriguez M.D. [address] [place] [phone] [facility] Cirrhos is Alcoholic (HCC) 2 Encounter Hepatology Tyrell Rodriguez M.D. [address] [place] [phone] Anesthesia Event Gastroenterology and Rl, 2 Hepatology Ervin Burgos M.D. [address] [place] [phone] Surgery Gastroenterology and [facility] ESOPHAG OGASTRODUODENOSCOPY 2 Hepatology Tyrell Rodriguez M.D. [address] [place] [phone] Scheduled Procedures Name Priority Associated Diagnoses Date/Time ESOPHAGOGASTRODUODENOSCOPY Cirrhosis Alc oholic (HCC) 03/20/2022 8:45 AM FACILITIES AND GROUNDS DIRECTOR Hypertension Portal (HCC) documented as of [...] as of this encounter Care Teams Java Jsf Developer Relationship Specialty Start Date End Date Ana Red P.A.-C. PCP - General Internal Medicine 12/01/[address] [place] [phone] [facility] [place] [facility] 08/25/21 Ervin Schroeder MD Referring Provider Family Medicine 03/24/[address] [place] [phone] documented as of this encounter
--- OUTSIDE RECORDS SUMMARY | 2022-02-14 22:04 | XMS_ITS | Encounter Summary ---
:1990 Author Organization [facility] Address [address] [place] [address] Care Team Providers Name Role Phone Ana Red P.A.-C. Primary Care Provider [phone] Reason for Visit Reason Comments Abdominal Distention Encounter Details Date Type Department Care Team Description 12/04/2021 Emergency [facility] [place], Ascites (Primary Dx); Emergency Department Abdullahi Mendez M.D. Insomnia [address] [place] [address] [address] [place] [address] [phone] (Wo rk) Social History Tobacco Use Types [...] you attend mandaeism or Patient refused 2021 gnosticist services? Do [...] or the highest technical, or vocational p Temptsterram degree you have received? 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 If we can do better, please let us know that too. AttachmentsThe following attachments cannot be sent through Care Everywhere. Paracentesis Care After (Stateless)Ascites (Stateless)Trazodone Tablets (Stateless) documented in this encounter Medications at Time [...] of this encounter Progress Notes Vahe Jorge R.RMerlin., L.R.T. - 12/04/2021 9:43 AM CDT RT [...] or amended. ED Course as of 12/09/212136 [facility] [place] [facility] Dec 04, 2021 0843 LFTs are consistent [...] in the past. History provided by: Patient lang interpreter needed/used: no REVIEW OF SYSTEMS Constitutional: [...] Appointment Radiology LuisMatthew abdul Tyrell Lilly M.D. [address] [place] [phone] Appointment Gastroenterology and Adrianne, 2 Hepatology Yue Burciaga M.D. [address] [place] [phone] Virtual Visit Transplant Matthew Jerome Tyrell Lilly M.D. [address] [place] [phone] Office Visit Gastroenterology and Matthew Jerome 2 Hepatology Tyrell Rodriguez M.D. [address] [place] [phone] Appointment Radiology [facility] 2 Tyrell Rodriguez M.D. [address] [place] [phone] Hospital Gastroenterology and [facility] Cirrhos is Alcoholic (HCC) 2 Encounter Hepatology Tyrell Rodriguez M.D. [address] [place] [phone] Anesthesia Event Gastroenterology and Rl, 2 Hepatology Ervin Burgos M.D. [address] [place] [phone] Surgery Gastroenterology and [facility] ESOPHAG OGASTRODUODENOSCOPY 2 Hepatology Tyrell Rodriguez M.D. [address] [place] [phone] Scheduled Procedures Name Priority Associated Diagnoses Date/Time ESOPHAGOGASTRODUODENOSCOPY Cirrhosis Alc oholic (HCC) 03/20/2022 8:45 AM HOUSE COORDINATOR Hypertension Portal (HCC) documented as of [...] STMA 7:34 AM CDT Spont. 18 12/04[facility] 7[facility]34 AM CDT Specimen Anatomical Collection Method Collection Time Receive d Time (Source) Location / / Volume Laterality Blood 12/04/2021 7:30 AM 7:34 CDT AM CDT Sree Goodman M.D., M.A. LAB BLOOD NON ADD-ON Performing Organization Address City/[facility] Phon e Number [facility] - [phone] [place] [address] hCG (Human Chorionic Gonadotropin), Quantitative, (12/04/2021 7:30 AM CDT) athologist Signature HCG, <0.5 <5 IU/L 12/04/2021 [facility] Quantitative, 7:51 AM CDT , P Specimen Anatomical Collection Method Collection Time Receive d Time (Source) Location / / Volume Laterality Blood (Blood, 12/04/2021 7:30 AM 12/05/19 7:34 Venous) CDT AM CDT Sree Goodman M.D., M.A. LAB BLOOD ADD-ON Performing Organization Address City/[facility] Phon e Number [facility] - [address] (ABNORMAL) Prothrombin Time (PT) (12/04/2021 7:30 AM CDT) [facility] Method Time Signature Prothrombin 31.1 (H) 9.4 - 12.5 12/04/2021 [facility] Time, P sec 7:44 AM CDT INR 2.8 0.9 - 1.1 12/04/2021 [facility] 7:44 AM CDT Comment: ----ADDITIONAL INFORMATION---- Standard [...] Performing Organization Address City/[facility] Phon e Number [facility] - [address] [place] [address] [place] [address] Lipase (12/04/2021 7:30 AM CDT) P athologist Signature Lipase, S 44 13 - 60 U/L 12/04/2021 8:30 DTL AM CDT Specimen Anatomical Collection Method Collection Time Receive d Time (Source) Location / / Volume Laterality Blood (Blood, 12/04/2021 7:30 AM 12/05/19 8:04 Venous) CDT AM CDT Sree Goodman M.D., M.A. LAB BLOOD ADD-ON Performing Organization Address City/[facility] Phon e Number [facility] - [address] [place] [address] (ABNORMAL) Hepatic Function Panel (12/04/2021 7:30 [...] M.A. LAB BLOOD ADD-ON Performing Organization Address City/State/[facility] Code Phon e Number [facility] - [address] [place] [address] [address] [place] [address] Laboratories-[facility] [address] [facility] (ABNORMAL) CBC with Differential, Blood (12/04/2021 7:30 AM CDT) [facility] gist Method Time Signature Hemoglobin 8.0 (L) [...] Number [facility] - [address] [place] [address] [address] [place] [address] Laboratories-[facility] 200 [facility] (ABNORMAL) Basic Metabolic Panel (12/04/2021 7:30 [...] CDT eGFR-Black/Afri >90 >=60 12/04/2021 DTL can [place] mL/min/BSA 8:53 AM CDT Comment: ----ADDITIONAL INFORMATION---- [...] Number [facility] - [address] [place], [place] [address] [place] [address] [facility] [address] [place] [address] [facility] [address] (ABNORMAL) Blood Gas with Coox, Venous (12/04/2021 7:30 AM CDT) [facility] Method Time Signature Venous pO2 36 [...] AM CDT CtO2 6.9 Not applicable 12/04/2021 [facility] vol % 7:38 AM CDT Venous Sample Venipunct 12/04/2021 [facility] Site 7:38 AM CDT Specimen Anatomical Collection Method Collection Time Receive d Time (Source) Location / / Volume Laterality Blood (Blood, 12/04/2021 7:30 AM 12/05/19 7:34 Venous) CDT AM CDT Sree Goodman M.D., M.A. LAB BLOOD NON ADD-ON Performing Organization Address City/State/ZIP Code Phon e Number [facility] - [address] [place], [place] [address] [place] [address] Laboratories-[facility] [address] documented in this [...] injection - ADS Overrid e Pull (COMPLETED) 0901 (Given - Provider: Juan Moise RSumaNSuma - Comment: pulled at provider request prior to parasynthesis) Starting on Luz Marina 12/04/21 at 0910, For 1 dose, Created by marii elizondo documented in this encounter Additional Health Concerns Assessment Noted Time PHQ-9 Depression Total Score: 10 10/06/2021 5:00 PM CD T documented as of this encounter Care Teams Straddle Bug Driver Relationship Specialty Start Date End Date Ana Red P.A.-C. PCP - General Internal Medicine 12/01/[address] [place] [address] [place] [phone] [facility] 08/25/21 Ervin Schroeder MD Referring Provider Family Medicine 03/24/[address] [place] [address] [place] [address] documented as of this encounter
--- OUTSIDE RECORDS SUMMARY | 2022-02-14 22:04 | XMS_ITS | Encounter Summary ---
:1990 Author Organization [facility] Address [address] [place] [address] Care Team Providers Name Role Phone Ana Red P.A.-C. Primary Care Provider [phone] Encounter Details Date Type Department Care Team Description 12/11/2021 Clinical Communication Department of Felicita Spicer Gastroenterology in E, L.P.N. [place], [place] [phone] [place] [address] ([facility]) [place] [address] Social History Tobacco Use Types Packs/Day [...] you attend synagogue or Patient refused 2021 restorationist services? 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 - 12/11/2021 10:51 AM CDT Commercial Horticulture Instructor called and spoke with Radiology nursing department [...] seems they used it for her in [facility] last week and it worked very well for her. Otherwise she has significant anxiety from the procedure. Please let me know Thank you OM documented in this encounter Plan of Treatment Upcoming Encounters Date Type Specialty Care Team Description Telemedicine Transplant 2 Appointment Radiology Matthew Jerome 2, M.B.B.S., M.D. [address] [place] [phone] Appointment Gastroenterology and Adrianne, 2 Hepatology Yue Burciaga M.D. [address] [place] [phone] Virtual Visit Transplant Matthew Jerome 2, M.B.B.S., M.D. [address] [place] [phone] Office Visit Gastroenterology and Queenie Matthew 2 Hepatology Tyrell Rodriguez M.D. [address] [place] [phone] Appointment Radiology Matthew Jerome 2 YTyrell M.D. [address] [place] [phone] Hospital Gastroenterology and [place], Matthew Cirrhos is Alcoholic (HCC) 2 Encounter Hepatology Tyrell Rodriguez M.D. [address] [place] [phone] Anesthesia Event Gastroenterology and Rl, 2 Hepatology Ervin Burgos M.D. [address] [place] [phone] Surgery Gastroenterology and [facility] ESOPHAG OGASTRODUODENOSCOPY 2 Hepatology Tyrell Rodriguez M.D. [address] [place] [phone] Scheduled Procedures Name Priority Associated Diagnoses Date/Time ESOPHAGOGASTRODUODENOSCOPY Cirrhosis Alc oholic (HCC) 03/20/2022 8:45 AM ASSISTANT CHIEF TRAIN DISPATCHER Hypertension Portal (HCC) documented as of this encounter Visit Diagnoses Diagnosis Cirrhosis Alcoholic (HCC) Hypertension Portal (HCC) Ascites Chronic - Primary Cirrhosis Alcoholic (HCC) Hypertension Portal (HCC) documented in this encounter Additional Health Concerns Assessment Noted Time PHQ-9 Depression Total Score: 10 10/06/2021 5:00 PM CD T documented as of this encounter Care Teams Sales Outfitter Relationship Specialty Start Date End Date Ana Red P.A.-C. PCP - General Internal Medicine 12/01/[address] [place] [phone] [facility] [place] lab 08/25/21 Ervin Schroeder MD Referring Provider Family Medicine 03/24/[address] [place] [address] documented as of this encounter
--- OUTSIDE RECORDS SUMMARY | 2022-02-14 22:04 | XMS_ITS | Encounter Summary ---
:1990 Author Organization [facility] Address [address] [place] [address] Care Team Providers Name Role Phone Ana Red P.A.-C. Primary Care Provider [phone] Reason for Visit Reason Comments Phone Contact Appointment LABS Encounter Details Date Type Department Care Team Description 12/11/2021 Clinical Ramirez Barajas, Phone Contact; Communication Center for Mitchell Rowland (Jagdeep HERRON) Transplantation and Lilian, Ph.D. Clinical [facility] [address] [place] [address] [address] [facility] [phone] Social History Tobacco Use Types Packs/Day Years [...] you attend hoahaoism or Patient refused 2021 rastafarian services? Do [...] at Date Recorded Female 04/12/2021 7:39 PM HAT COPYIST documented as of this encounter Miscellaneous Notes Telephone Encounter - Andreas Lopez - 12/11/2021 2:39 PM CDT Carlito Henson would like to know if you need labs completed FRANCESCA or if it is okay to wait until 01/12 when they are currently scheduled for? There are two sets of labs and one was from 10/10. We have scheduled the jan ones. Just wondering if you would like some completed FRANCESCA or if it can wait till 01/12? Thank you in advance documented in this encounter Plan of Treatment Upcoming Encounters Date Type Specialty Care Team Description Telemedicine Transplant 2 Appointment Radiology Matthew Jerome 2 YTyrell M.D. [address] [place] [phone] Appointment Gastroenterology demian Silver, 2 Hepatology Yue Burciaga M.D. [address] [place] [phone] Virtual Visit Transplant Matthew Jerome 2 YTyrell M.D. [address] [place] [phone] Office Visit Gastroenterology and Matthew Jerome 2 Hepatology Tyrell Rodriguez M.D. [address] [place] [phone] Appointment Radiology LuisMatthew abdul 2 YTyrell M.D. [address] [place] [phone] Hospital Gastroenterology and Matthew Jerome Cirrhos is Alcoholic (HCC) 2 Encounter Hepatology Tyrell Rodriguez M.D. [address] [place] [phone] Anesthesia Event Gastroenterology and Rl, 2 Hepatology Ervin Burgos M.D. [address] [place] [phone] Surgery Gastroenterology and Matthew Jerome ESOPHAG OGASTRODUODENOSCOPY 2 Hepatology Vik RodriguezBLilian Bedolla [address] [place] [phone] Scheduled Procedures Name Priority Associated Diagnoses Date/Time ESOPHAGOGASTRODUODENOSCOPY Cirrhosis Alc oholic (HCC) 03/20/2022 8:45 AM HAT COPYIST Hypertension Portal (HCC) documented as of this encounter Visit Diagnoses Not on filedocumented in this encounter Additional Health Concerns Assessment Noted Time PHQ-9 Depression Total Score: 10 10/06/2021 5:00 PM CD T documented as of this encounter Care Teams Tape Librarian Relationship Specialty Start Date End Date Ana Red P.A.-C. PCP - General Internal Medicine 12/01/[address] [place] [address] ADI PANIAGUA [phone] [facility]- [place] lab 08/25/21 Ervin Schroeder MD Referring Provider Family Medicine 03/24/[address] [place] [address] ADI Paniagua [address] documented as of this encounter
--- OUTSIDE RECORDS SUMMARY | 2022-02-14 22:04 | XMS_ITS | Encounter Summary ---
:1990 Author Organization [facility] Address [address] [place] [address] Care Team Providers Name Role Phone Ana Red P.A.-C. Primary Care Provider Reason for Visit Reason Comments Disability Parking Certificate Encounter Details Date Type Department Care Team Description 12/11/2021 Clinical Communication [facility] Ana, Certifica Medicine in P.A.-C. [place], [address] [facility] [address] [facility] [phone] [phone] (Work) [phone] Social History Tobacco Use Types Packs/Day Years [...] you attend orthodoxy or Patient refused 2021 buddhist services? 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 - 12/11/2021 9:16 AM CDT Disability Parking Certificate form request received. Please mail to patient after provider has signed. documented in this encounter Plan of Treatment Upcoming Encounters Date Type Specialty Care Team Description Telemedicine Transplant 2 Appointment Radiology Matthew Jerome 2 YTyrell M.D. [address] [place] [phone] Appointment Gastroenterology and Adrianne, 2 Hepatology Yue Burciaga M.D. [address] [place] [phone] Virtual Visit Transplant LuisMatthew abdul 2 Vik RodriguezBLilian Bedolla [address] [place] [phone] Office Visit Gastroenterology and [place] Jeromear 2 Hepatology Tyrell Rodriguez M.D. [address] [place] [phone] Appointment Radiology Queenie Matthew 2 Joshua RodriguezBSumaBLilian Bedolla [address] [place] [phone] Hospital Gastroenterology and Queenie Matthew Cirrhos is Alcoholic (HCC) 2 Encounter Hepatology Joshua RodriguezBSumaBLilian Bedolla [address] [place] [phone] Anesthesia Event Gastroenterology and Rl, 2 Hepatology Ervin Burgos M.D. [address] [place] [phone] Surgery Gastroenterology and Matthew Jerome ESOPHAG OGASTRODUODENOSCOPY 2 Hepatology Joshua RodrgiuezB.BLilian Bedolla [address] [place] [phone] Scheduled Procedures Name Priority Associated Diagnoses Date/Time ESOPHAGOGASTRODUODENOSCOPY Cirrhosis Alc oholic (HCC) 03/20/2022 8:45 AM HEAD OF OPERATION AND LOGISTICS Hypertension Portal (HCC) documented as of this encounter Visit Diagnoses Not on filedocumented in this encounter Additional Health Concerns Assessment Noted Time PHQ-9 Depression Total Score: 10 10/06/2021 5:00 PM CD T documented as of this encounter Care Teams Rib Sawyer Relationship Specialty Start Date End Date Ana Red P.A.-C. PCP - General Internal Medicine 12/01/[address] [place], [place] [address] [address] [facility]- [facility] 08/25/21 Ervin Schroeder MD Referring Provider Family Medicine 03/24/[address] [place] [address] [address] documented as of this encounter
--- OUTSIDE RECORDS SUMMARY | 2022-02-14 22:04 | XMS_ITS | Encounter Summary ---
:1990 Author Organization [facility] Address [address] [place] [address] Care Team Providers Name Role Phone Ana Red P.A.-C. Primary Care Provider [phone] Encounter Details Date Type Department Care Team Description 12/02/2021 Clinical Communication Pharmacy Prior Auth Jasmyne Keller [phone] Social History Tobacco Use Types Packs/Day Years [...] you attend pentecostal or Patient refused 2021 pentecostalism services? 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 Thank you, The OPPA Team documented in this encounter Plan of Treatment Upcoming Encounters Date Type Specialty Care Team Description Telemedicine Transplant 2 Appointment Radiology Matthew Jerome 2 Y, JoshuaB.B.Kath, Lilian [address] [place] [address] [phone] Appointment Gastroenterology demian Silver, 2 Hepatology Yue Burciaga M.D. [address] [place] [phone] Virtual Visit Transplant Matthew Jerome 2 YJoshuaB.BLilian Bedolla [address] [place] [phone] Office Visit Gastroenterology and Matthew Jerome 2 Hepatology Joshua RodriguezBSumaBLilian Bedolla [address] [place] [phone] Appointment Radiology Matthew Jerome 2 YJoshuaB.BLilian Bedolla [address] [place] [phone] Hospital Gastroenterology and Matthew Jerome Cirrhos is Alcoholic (HCC) 2 Encounter Hepatology Joshua RodriguezB.B.Lilian [place] [address] [place] [phone] Anesthesia Event Gastroenterology and Rl, 2 Hepatology Ervin Burgos M.D. [address] [place] [address] [phone] Surgery Gastroenterology and Mousa, Matthew ESOPHAG OGASTRODUODENOSCOPY 2 Hepatology Tyrell Rodriguez M.D. [address] [place] [phone] Scheduled Procedures Name Priority Associated Diagnoses Date/Time ESOPHAGOGASTRODUODENOSCOPY Cirrhosis Alc oholic (HCC) 03/20/2022 8:45 AM GRADES 7 8 TUTOR Hypertension Portal (HCC) documented as of this encounter Visit Diagnoses Not on filedocumented in this encounter Additional Health Concerns Assessment Noted Time PHQ-9 Depression Total Score: 10 10/06/2021 5:00 PM CD T documented as of this encounter Care Teams Retail Support Associate Relationship Specialty Start Date End Date Ana Red P.A.-C. PCP - General Internal Medicine 12/01/[address] [place] [phone] [facility] [place] lab 08/25/21 Ervin Schroeder MD Referring Provider Family Medicine 03/24/[address] [place] [address] documented as of this encounter
--- OUTSIDE RECORDS SUMMARY | 2022-02-14 22:04 | XMS_ITS | Encounter Summary ---
:1990 Author Organization [facility] Address [address] [place] [address] Care Team Providers Name Role Phone Ana Red P.A.-C. Primary Care Provider [phone] Reason for Visit Reason Comments Post Hospital Follow-up Encounter Details Date Type Department Care Team Description 12/02/2021 Clinical Communication Department of [facility] Internal Ciara Johnson R.N. Follow-up Medicine in [address] [place] [phone] 300 [facility] [phone] [place], [place] (Work) [phone] Social History Tobacco Use [...] you attend tenriism or Patient refused 2021 mandaeism services? 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 [address] [place] [phone] Virtual Visit Transplant Luischantell Matthew 2 Jennifer M.B.B.Kath, Lilian [address] [place] [phone] Office Visit Gastroenterology and QueenieNewar 2 Hepatology Joshua RodriguezB.B.Lilian Stock[place] [address] [place] [phone] Appointment Radiology LuisNew abdular 2 Y M.B.B.SSuma, Lilian [address] [place] [phone] Hospital Gastroenterology and LuisMatthew abdul Cirrhos is Alcoholic (HCC) 2 Encounter Hepatology Jennifer M.B.B.SSuma, Lilian [address] [place] [phone] Anesthesia Event Gastroenterology and Rl 2 Hepatology Ervin Burgos M.D. [address] [place] [phone] Surgery Gastroenterology and Mousa, Matthew ESOPHAG OGASTRODUODENOSCOPY 2 Hepatology YTyrell M.D. [address] [place] [phone] Scheduled Procedures Name Priority Associated Diagnoses Date/Time ESOPHAGOGASTRODUODENOSCOPY Cirrhosis Alc oholic (HCC) 03/20/2022 8:45 AM CLAIM ADJUSTER Hypertension Portal (HCC) documented as of this encounter Visit Diagnoses Not on filedocumented in this encounter Additional Health Concerns Assessment Noted Time PHQ-9 Depression Total Score: 10 10/06/2021 5:00 PM CD T documented as of this encounter Care Teams Agricultural Produce Sorter Relationship Specialty Start Date End Date Ana Red P.A.-C. PCP - General Internal Medicine 12/01/[address] [place] [phone] [facility] [place] lab 08/25/21 Ervin Schroeder MD Referring Provider Family Medicine 03/24/[address] [place] [address] documented as of this encounter
--- OUTSIDE RECORDS SUMMARY | 2022-02-14 22:05 | XMS_ITS | Encounter Summary ---
:1990 Author Organization [facility] Address [address] [place] [address] Care Team Providers Name Role Phone Elsewhere, Pcp Primary Care Provider Unavailable Encounter Details Date Type Department Care Team Description 11/27/2021 Orders Only Division [facility] [place] Gerard Andino M.D ., Internal Medicine, [facility], in [place], Formerly named [facility] [address] [place], [place] [address] [facility] [address] [place] [address] [phone] Social History Tobacco Use Types Packs/Day Years [...] you attend congregational or Patient refused 2021 shinto services? Do [...] at Date Recorded Female 04/12/2021 7:39 PM SERVICES REP documented as of this encounter Plan of Treatment Upcoming Encounters Date Type Specialty Care Team Description Telemedicine Transplant 2 Appointment Radiology Matthew Jerome 2, M.B.B.S., Lilian [address] [place] [phone] Appointment Gastroenterology demian Silver, 2 Hepatology Yue Burciaga M.D. [address] [place] [phone] Virtual Visit Transplant Matthew Jerome 2 Tyrell Rodriguez M.D. [address] [place] [phone] Office Visit Gastroenterology and Matthew Jerome 2 Hepatology Tyrell Rodriguez M.D. [address] [place] [phone] Appointment Radiology Queenie Matthew 2 YTyrell M.D. [address] [place] [phone] Hospital Gastroenterology and Queenie Matthew Cirrhos is Alcoholic (HCC) 2 Encounter Hepatology Tyrell Rodriguez M.D. [address] [place] [phone] Anesthesia Event Gastroenterology and Rl, 2 Hepatology Ervin Burgos M.D. [address] [place] [phone] Surgery Gastroenterology and Queenie Matthew ESOPHAG OGASTRODUODENOSCOPY 2 Hepatology Tyrell Rodriguez M.D. [address] [place] [phone] Scheduled Procedures Name Priority Associated Diagnoses Date/Time ESOPHAGOGASTRODUODENOSCOPY Cirrhosis Alc oholic (HCC) 03/20/2022 8:45 AM SERVICES REP Hypertension Portal (HCC) documented as of this encounter Visit Diagnoses Not on filedocumented in this encounter Additional Health Concerns Assessment Noted Time PHQ-9 Depression Total Score: 10 10/06/2021 5:00 PM CD T documented as of this encounter Care Teams Studio Operation Engineer Relationship Specialty Start Date End Date Elsewhere, Pcp PCP - General Family Medicine 03/10/20 11/30/21 [facility] [place] lab 08/25/21 Ervin Schroeder MD Referring Provider Family Medicine 03/24/[address] [place] [address] documented as of this encounter
--- OUTSIDE RECORDS SUMMARY | 2022-02-14 22:05 | XMS_ITS | Encounter Summary ---
:1990 Author Organization [facility] Address [address] [place] [address] Care Team Providers Name Role Phone Ana Red P.A.-C. Primary Care Provider Reason for Referral Outpatient (Routine) - Pending Review Specialty Diagnoses / Procedures Referred By Contact Refer red To Contact Sleep Medicine Diagnoses Insomnia [facility] [address] [place] [phone] Referral ID Status Reason Start Expiration Visits Visits Date Date Requested Authorized [id number] Pending Specialty 12/02/2021 12/02/2022 1 1 Review Services Required Scheduling Instructions Schedule stat since her study was cancel led twice Outpatient (Routine) - Closed Specialty Diagnoses / Procedures Referred By Contact Tabatha lamar To Contact Community Internal JESSE Arnold ADI R egion Medicine Jeri CorreaOSuma [address], [place] [address] Referral ID Status Reason Start Date Expiration Date Visits Requ ested Visits Authorized [id number] Closed 12/02/2021 12/02/2022 1 1 Scheduling Instructions Schedule with ana her PCP . Zurdo jules up on liver cirrhosis , and hepatic encephalopathy Outpatient (Routine) - Authorized Specialty Diagnoses / Procedures Referred By Contact Refer brianda To Contact Diagnoses Alcoholic Cirrhosis Of Liver Without Ascites (HCC) Ascites Chronic Sunny Arnold [facility] Region Procedures US Abdomen Complete D.O. [address] [place] [phone] Referral ID Status Reason Start Date Expiration Date Visits V isits Requested Authorized [id number] Authorized 12/02/2021 12/02/2022 1 1 Reason for Visit Reason Comments Post Hospital Follow-up TCM post [facility] stay with discharge on 11/26/2021 Appointment Request (Routine) - Closed Specialty Diagnoses / Procedures Referred By Contact Refer brianda To Contact Community Internal Medicine Referral ID Status Reason Start Date Expiration Date Visits Requ ested Visits Authorized [id number] Closed 12/01/2021 12/01/2022 1 1 Encounter Details Date Type Department Care Team Description 12/02/2021 Office Visit Department of Internal Silvano Arnold cutluzma And Subacute Hepatic Failure Without Coma (HCC) (Primary Dx); Medicine in [place] D.O . Pancreatitis Chronic (HCC); [place] [address] Retirement Use Of Opiate Analgesic; [address] [place], [place] Alcohol Use Unspecified With Unspecified Alcohol Induced Disorder (HCC); [place] [address] Alcoholic Cirrhosis Of Liver Without Asc ites (HCC); [phone] Ascites Chronic; Insomnia; [phone] High Risk Medic ation (Fax) Social History [...] you attend faith or Patient refused 2021 worship services? 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 On arrival to [facility], she was unable to follow commands. 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 On arrival to [facility], she was unable to follow commands. She [...] Appointment Radiology Matthew Jerome 2, M.B.B.S., M.D. [address] [place] [address] [phone] Appointment Gastroenterology and Adrianne, 2 Hepatology Yeu Burciaga M.D. [address] [place] [phone] Virtual Visit Transplant Matthew Jerome 2, M.B.B.S., M.D. [address] [place] [phone] Office Visit Gastroenterology and Matthew Jerome 2 Hepatology Tyrell Rodriguez M.D. [address] [place] [phone] Appointment [facility] Matthew 2 Tyerll Rodriguez M.D. [address] [place] [phone] [address]ology and [facility] Cirrhos is Alcoholic (HCC) 2 Encounter Hepatology Tyrell Rodriguez M.D. [address] [place] [phone] Anesthesia Event Gastroenterology and Rl, 2 Hepatology Ervin Burgos M.D. [address] [place] [address] [phone] Surgery [address]ology and [facility] ESOPHAG OGASTRODUODENOSCOPY 2 Hepatology Tyrell Rodriguez M.D. [address] [place] [phone] Scheduled Orders Name Type Priority Associated Diagnoses Order [facility] US Abdomen Complete Imaging RAD - Routine (most Alcoholic Cirr hosis Expected: inpatients and all Of Liver Without 12/02 outpatients) Ascites (HCC) (Approximate), Ascites Chronic Expires: 03/04/2023 Scheduled Procedures Name Priority Associated Diagnoses Date/Time ESOPHAGOGASTRODUODENOSCOPY Cirrhosis Alc oholic (HCC) 03/20/2022 8:45 AM POST OFFICE MARKUP CLERK Hypertension Portal (HCC) Scheduled Referrals Name Type Priority Associated Diagnoses Order [facility] Internal Outpatient Referral Routine Ex pected: Medicine office 12/16/2021 visit (clinic) (Approximate) , Expires: 03/04/2023 Sleep Medicine - Outpatient Referral Routine Insomnia Expe cted: General consult 12/02/2021 (clinic) (Approximate), Expires: 03/04/2023 documented as of this encounter Visit Diagnoses Diagnosis Acute And Subacute Hepatic Failure Witho ut Coma (HCC) - Primary Pancreatitis Chronic (HCC) Retirement Use Of Opiate Analgesic Alcohol Use Unspecified With Unspecified Alcohol Induced Disorder (HCC) Alcoholic Cirrhosis Of Liver Without Asc ites (HCC) Ascites Chronic Insomnia High Risk Medication Cirrhosis Alcoholic (HCC) Cirrhosis Alcoholic (HCC) Hypertension Portal (HCC) documented in this encounter Additional Health Concerns Assessment Noted Time PHQ-9 Depression Total Score: 10 10/06/2021 5:00 PM CD T documented as of this encounter Care Teams Labour Market Economist Relationship Specialty Start Date End Date Ana Red P.A.-C. PCP - General Internal Medicine 12/01/[address] [place] [phone] [facility] [place] lab 08/25/21 Ervin Schroeder MD Referring Provider Family Medicine 03/24/[address] [place] [address] documented as of this encounter
--- OUTSIDE RECORDS SUMMARY | 2022-02-14 22:05 | XMS_ITS | Encounter Summary ---
:1990 Author Organization [facility] Address [address] [place] [address] Care Team Providers Name Role Phone Ana Red P.A.-C. Primary Care Provider [phone] Encounter Details Date Type Department Care Team Description 11/26/2021 [facility] Dena Schroeder tohepatitis Non Alcoholic (Primary Dx); AND CLINICS Ervin Schaefer M.D. Unspecified Cirrhosis Of Liver (HCC) [address], [place] [address] [phone] Social History Tobacco Use Types Packs/Day Years [...] you attend judaism or Patient refused 2021 scientology services? 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 [address] [place] [phone] Virtual Visit Transplant Matthew Jerome 2 YJoshuaB.B.Lilian Stockton [address] [place] [phone] Office Visit Gastroenterology and Queenie Matthew 2 Hepatology Tyrell Rodriguez M.D. [address] [place] [phone] Appointment Radiology LuisMatthew abdul 2 YTyrell M.D. [address] [place] [phone] Hospital [facility] Cirrhos is Alcoholic (HCC) 2 Encounter Hepatology Tyrell Rodriguez M.D. [address] [place] [address] [phone] Anesthesia Event Gastroenterology and Rl, 2 Hepatology Ervin Burgos M.D. [address] [place] [phone] Surgery Gastroenterology and [facility] ESOPHAG OGASTRODUODENOSCOPY 2 Hepatology Tyrell Rodriguez M.D. [address] [place] [address] [phone] Scheduled Procedures Name Priority Associated Diagnoses Date/Time ESOPHAGOGASTRODUODENOSCOPY Cirrhosis Alc oholic (HCC) 03/20/2022 8:45 AM CAMP COUNSELOR Hypertension Portal (HCC) documented as of [...] General Internal Medicine 12/01/[address] [place] [address] [place] [phone] [facility] 08/25/21 Ervin Schroeder MD Referring Provider Family Medicine 03/24/[address] [place] [address] [place] [address] documented as of this encounter
--- OUTSIDE RECORDS SUMMARY | 2022-02-14 22:05 | XMS_ITS | Encounter Summary ---
:1990 Author Organization [facility] Address [address] [place] [address] Care Team Providers Name Role Phone Ana Red P.A.-C. Primary Care Provider [phone] Encounter Details Date Type Department Care Team Description 12/02/2021 Hospital Encounter Department of [facility] Cirrhosi s Alcoholic (HCC); Laboratory Medicine Y, M.B.B.S., Hyperten neptali Portal (HCC); in [place] Thrombocytopenia (HCC); [place] [address] [facility] Abnormal Liver Function Test; [address] [place], [place] Change Mental Status ADI PANIAGUA [phone] Social History Tobacco Use Types Packs/Day Years [...] attend roman catholic or Patient refused 2021 jehovah's witness services? Do you belong to any clubs or No 02/10/2022 organizations such as roman catholic groups, unions, fraCyVek or athletic groups, or school groups? 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 [address] [place] [phone] Appointment Gastroenterology demian Silver, 2 Hepatology Yue Burciaga M.D. [address] [place] [phone] Virtual Visit Transplant Matthew Jerome 2 Tyrell Rodriguez M.D. [address] [place] [phone] Office Visit Gastroenterology and Matthew Jerome 2 Hepatology Tyrell Rodriguez M.D. [address] [place] [phone] Appointment Radiology Matthew Jerome 2 YJoshuaBSumaBLilian Bedolla [address] [place] [phone] Hospital Gastroenterology and Queenie Matthew Cirrhos is Alcoholic (HCC) 2 Encounter Hepatology Vik RodriguezBLilian Bedolla [address] [place] [phone] Anesthesia Event Gastroenterology and Rl, 2 Hepatology Ervin Burgos M.D. [address] [place] [phone] Surgery Gastroenterology and Matthew Jerome ESOPHAG OGASTRODUODENOSCOPY 2 Hepatology Tyrell Rodriguez M.D. [address] [place] [phone] Scheduled Procedures Name Priority Associated Diagnoses Date/Time ESOPHAGOGASTRODUODENOSCOPY Cirrhosis Alc oholic (HCC) 03/20/2022 8:45 AM TOOL DIE MAKER Hypertension Portal (HCC) documented as of [...] CDT eGFR-Black/Afri >90 >=60 12/02/2021 [place] can Grenadian mL/min/BSA 6:46 PM CDT Comment: ----ADDITIONAL INFORMATION---- [...] M.D. LAB BLOOD ADD-ON Performing Organization Address City/[facility]/ZIP Code Phon e Number [facility] [address] [place] [address] [facility] [place] [address] System in [place] [address] (ABNORMAL) Bilirubin, Total (12/02/2021 4:14 PM CDT) P athologist Signature Bilirubin, 11.8 (H) <=1.2 12/02/2021 [place] Total, P mg/dL 6:46 PM CDT Specimen Anatomical Collection Method Collection Time Receive d Time (Source) Location / / Volume Laterality Blood (Blood, 12/02/2021 4:14 PM 12/03/19 22 6:28 Venous) CDT PM CDT Matthew Santillan M.D. LAB BLOOD ADD-ON Performing Organization Address City/[facility]/ZIP Code Phon e Number [facility]- [address] [place] [address] [place] [address] System in [place] [address] (ABNORMAL) Prothrombin Time (PT) (12/02/2021 4:14 [...] City/State/ZIP Code Phon e Number [facility]- [address] [place] [address] [facility] [place] [address] System in [place] [address] documented in this encounter Visit Diagnoses Diagnosis Cirrhosis Alcoholic (HCC) Hypertension Portal (HCC) Thrombocytopenia (HCC) Abnormal Liver Function Test Change Mental Status Cirrhosis Alcoholic (HCC) Cirrhosis Alcoholic (HCC) Hypertension Portal (HCC) documented in this encounter Additional Health Concerns Assessment Noted Time PHQ-9 Depression Total Score: 10 10/06/2021 5:00 PM CD T documented as of this encounter Care Teams Pickle Maker Relationship Specialty Start Date End Date Ana Red P.A.-C. PCP - General Internal Medicine 12/01/[address] [place] [address] [place] [phone] [facility] [place] lab 08/25/21 Ervin Schroeder MD Referring Provider Family Medicine 03/24/[address] [place] [address] [place] [address] documented as of this encounter
--- OUTSIDE RECORDS SUMMARY | 2022-02-14 22:05 | XMS_ITS | Encounter Summary ---
:1990 Author Organization [facility] Address [address] [place] [address] Care Team Providers Name Role Phone Ana Red P.A.-C. Primary Care Provider [phone] Encounter Details Date Type Department Care Team Description 11/26/[address] [facility], Gastroenterology in M.BJhoan, Joshua Kruger[address] [place] [address] [phone] Social History Tobacco Use Types Packs/Day Years [...] you attend jain or Patient refused 2021 christian services? Do you belong to any clubs or No 02/10/2022 organizations such as jain groups, unions, fraIntegenX or athletic groups, or school groups? 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 [address] [place] [phone] Virtual Visit Transplant Matthew Jerome 2 Y, Kishore.BLilian Bedolla [address] [place] [address] [phone] Office Visit Gastroenterology and [facility] 2 Hepatology Tyrell Rodriguez M.D. [address] [place] [phone] Appointment Radiology Wichantell Matthew 2 YTyrell M.D. [address] [place] [phone] Hospital Gastroenterology and [facility] Cirrhos is Alcoholic (HCC) 2 Encounter Hepatology Tyrell Rodriguez M.D. [address] [place] [phone] Anesthesia Event Gastroenterology and Rl, 2 Hepatology Ervin Burgos M.D. [address] [place] [phone] Surgery Gastroenterology and [facility] ESOPHAG OGASTRODUODENOSCOPY 2 Hepatology Tyrell Rodriguez M.D. 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 PCP - General Internal Medicine 12/01/[address] [place] [address] ADI Chua [phone] [facility] [place] lab 08/25/21 Ervin Schroeder MD Referring Provider Family Medicine 03/24/[address] [place] [address] documented as of this encounter
--- OUTSIDE RECORDS SUMMARY | 2022-02-14 22:05 | XMS_ITS | Encounter Summary ---
:1990 Author Organization [facility] Address [address] [place] [address] Care Team Providers Name Role Phone Ana Red P.A.-C. Primary Care Provider [phone] Encounter Details Date Type Department Care Team Description 11/26/2021 Clinical Communication Division of Luly Bentley[facility] [address] [place] [address] [place] [phone] [place], [place] [phone] (Work) [phone] Social History Tobacco Use Types Packs/Day Years [...] you attend evangelical or Patient refused 2021 restoration services? Do you belong to any clubs or No 02/10/2022 organizations such as evangelical groups, unions, fraInVitae or athletic groups, or school groups? 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 [address] [place] [phone] Virtual Visit Transplant Matthew Jerome 2 YVikBLilian Bedolla [address] [place] [phone] Office Visit Gastroenterology and [facility] 2 Hepatology Tyrell Rodriguez M.D. [address] [place] [phone] Appointment Radiology [facility] 2 YTyrell M.D. [address] [place] [phone] Hospital Gastroenterology and [facility] Cirrhos is Alcoholic (HCC) 2 Encounter Hepatology Tyrell Rodriguez M.D. [address] [place] [phone] Anesthesia Event Gastroenterology and Rl, 2 Hepatology Ervin Burgos M.D. [address] [place] [phone] Surgery Gastroenterology and [facility] ESOPHAG OGASTRODUODENOSCOPY 2 Hepatology Tyrell Rodriguez M.D. 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 MECHANIC Hypertension Portal (HCC) documented as of [...] CDT eGFR-Black/Afri >90 >=60 12/02/2021 OWAT can Peruvian mL/min/BSA 6:46 PM CDT Comment: ----ADDITIONAL INFORMATION---- [...] Code Phon e Number [facility]- [address] [facility] [place] [address] [facility] [place] [address] System in [place] [address] documented in this encounter Visit Diagnoses Diagnosis Change Mental Status - Primary Cirrhosis Alcoholic (HCC) Cirrhosis Alcoholic (HCC) Hypertension Portal (HCC) documented in this encounter Additional Health Concerns Assessment Noted Time PHQ-9 Depression Total Score: 10 10/06/2021 5:00 PM CD T documented as of this encounter Care Teams Set Up / Operator Relationship Specialty Start Date End Date Ana Red P.A.-C. PCP - General Internal Medicine 12/01/[address] [place] [address] ADI Chua [phone] [facility] [place] lab 08/25/21 Ervin Schroeder MD Referring Provider Family Medicine 03/24/[address] [place] [address] [place] [address] documented as of this encounter
--- OUTSIDE RECORDS SUMMARY | 2022-02-14 22:06 | XMS_ITS | Encounter Summary ---
:[address] [facility] Address [address] [place] [address] Care Team Providers Name Role Phone Elsewhere, Pcp Primary Care Provider Unavailable Reason for Visit Reason Comments Covid Positive Encounter Details Date Type Department Care Team Description 11/12/2021 Clinical Department of Matthew Jerome Positive Communication Gastroenterology in , [facility] [address] [facility] [address] [place] [address] [place], [place] [phone] Social History Tobacco Use Types Packs/Day [...] you attend confucianism or Patient refused 2021 holiness services? Do [...] highest technical, or vocational p [facility] degree you have received? 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 [facility] guidelines recommend that this appointment be changed [...] Radiology LuisMatthew abdul 2 Tyrell Rodriguez M.D. [address] [place] [phone] Appointment Gastroenterology demian Silver, 2 Hepatology Yue Burciaga M.D. [address] [place] [phone] Virtual Visit Transplant LuisMatthew abdul 2 Tyrell Rodriguez M.D. [address] [place] [phone] Office Visit Gastroenterology and LuisMatthew abdul 2 Hepatology Tyrell Rodriguez M.D. [address] [place] [phone] Appointment Radiology LuisMatthew abdul 2 YTyrell M.D. [address] [place] [phone] Hospital Gastroenterology and Matthew Jerome Cirrhos is Alcoholic (HCC) 2 Encounter Hepatology Tyrell Rodriguez M.D. [address] [place] [phone] Anesthesia Event Gastroenterology and Rl, 2 Hepatology Ervin Burgos M.D. [address] [place] [phone] Surgery Gastroenterology and Mousa, Matthew ESOPHAG OGASTRODUODENOSCOPY 2 Hepatology Tyrell Rodriguez M.D. 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 Hypertension Portal (HCC) documented as of this encounter Visit Diagnoses Not on filedocumented in this encounter Additional Health Concerns Infection Onset Date Last Indicated Resolved Time COVID19 Pending 11/12/2021 11/12/2021 11/12/2021 4:20 AM CDT [id number]: Patients who are NOT sev erely immunocompromised: Asymptomatic - At least 10 days have passed since the date of the first positive PCR test 11/12/2021 11/12/2021 11/13/2021 3:19 PM CDT and Patient has remained asymptomatic throughout their infection Assessment Noted Time PHQ-9 Depression Total Score: 10 10/06/2021 5:00 PM CD T documented as of this encounter Care Teams Diving Judge Relationship Specialty Start Date End Date Elsewhere, Pcp PCP - General Family Medicine 03/10/20 11/30/21 [facility] [place] lab 08/25/21 Ervin Schroeder MD Referring Provider Family Medicine 03/24/[address] [place] [phone] documented as of this encounter
--- OUTSIDE RECORDS SUMMARY | 2022-02-14 22:06 | XMS_ITS | Encounter Summary ---
:1990 Author Organization [facility] Address [address] [place] [address] Care Team Providers Name Role Phone Elsewhere, Pcp Primary Care Provider Unavailable Reason for Visit Auth/Cert Specialty Diagnoses / Procedures Referred By Contact Refer red To Contact Diagnoses Hepatic Encephalopathy Without Coma (HCC) hepatic encephalopathy Procedures DIR Referral ID Status Reason Start Date Expiration Date Visits Requ ested Visits Authorized [id number] 1 1 Encounter Details Date Type Department Care Team Description 11/09/2021 - [facility] Ekta Rubi M.D., M.S. [address] [place] [phone] Hepatic 11/11/2021 [facility] Jody Aguilar M.B., B.Chir. [address] [place] [phone] Encephalopathy [facility], Without Coma ( HCC) [place] (Primary Dx) Building, Sixth Floor [address] [place] [phone] Social History Tobacco Use Types Packs/Day [...] you attend quaker or Patient refused 2021 shinto services? 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 Primary Care Provider at Discharge: Primary Care Providers: Elsewhere, Pcp (General) No address on file Primary Care Provider Phone Number: None Primary Care Provider Fax Number: None Primary Team: [facility] Gastroenterology A Admission Date: 11/09/2021 [...] and Hepatology 11/19/2021 4:00 PM LAB 01 [facility] Laboratory Medicine 11/26/2021 4:00 PM SHADI COUNSELOR 01 ROGMarylou 18 Nicotine Dependence For appointment details refer to your Patient Appointment Guide. TEST RESULTS PENDING AT DISCHARGE Pending Labs Order Current Status [facility] Result Collected (11/11/21 0952) Bacterial Culture, Aerobic [...] AM CDT You were discharged from the [facility] Gastroenterology A Service. Please identify this service name if you call with questions after hospitalization. AttachmentsThe following attachments cannot be sent through Care Everywhere.Zinc Sulfate (By mouth) (Pakistani)documented in this encounter Medications at Time of [...] COVID therapies indicated. Evon Rodriguez Pharm.D., R.Ph. [phone] documented in this encounter H&P Notes Jody [...] RST Gastroenterology A Admission Note REFERRING FACILITY [facility] SUBJECTIVE CHIEF COMPLAINT Altered mental status, [...] / PLAN Ms. Carias is hospitalized on [facility] Gastroenterology A for evaluation and [...] seen and discussed with [facility] Gastroenterology A Lead Cytogenetic Technologist, Jo Ann Abbasi M.D.. Please see the supervisory note for further details. Please contact the primary service pager - [phone] with any questions. documented in this encounter Nursing Notes Bernardo Nguyen, R.N. - 11/11/2021 2:01 PM CDT Patient [...] LuisNew abdular 2 Tyrell Rodriguez M.D. [address] [place] [address] [phone] Appointment Gastroenterology demian Silver, 2 Hepatology Yue Burciaga M.D. [address] [place] [phone] Virtual Visit Transplant LuisMatthew abdul 2 Tyrell Rodriguez M.D. [address] [place] [address] [phone] Office Visit Gastroenterology and LuisMatthew abdul 2 Hepatology Tyrell Rodriguez M.D. [address] [place] [address] [phone] Appointment Radiology LuisNew abdular 2 YTyrell M.D. [address] [place] [address] [phone] Hospital Gastroenterology and LuisMatthew abdul Cirrhos is Alcoholic (HCC) 2 Encounter Hepatology Tyrell Rodriguez M.D. [address] [place] [address] [phone] Anesthesia Event Gastroenterology and Rl, 2 Hepatology Ervin Burgos M.D. [address] [place] [phone] Surgery Gastroenterology and Mousa, Matthew ESOPHAG OGASTRODUODENOSCOPY 2 Hepatology Tyrell Rodriguez M.D. 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 LAB BLOOD ADD-ON Performing Organization Address [facility] Phon e Number [facility] - 200 [place], [place] [address] [place] [address] Laboratories-[facility] 200 [facility] (ABNORMAL) Prothrombin Time (PT) (11/11/2021 4:31 AM [...] M.S. LAB BLOOD ADD-ON Performing Organization Address City/[facility] Phon e Number [facility] - 200 [place], [place] [address] [place] [address] Laboratories-[address] (ABNORMAL) Comprehensive Metabolic Panel (11/11/2021 4:31 [...] 11/11/2021 DTL Black/ mL/min/BSA 6:27 AM CDT Kittitian Comment: ----ADDITIONAL INFORMATION---- Estimated GFR calculated using [...] M.S. LAB BLOOD ADD-ON Performing Organization Address City/State/[facility] Phon e Number [facility] - [address] [place], [place] [address] [facility] [place] [place] [address] Laboratories-[facility] 200 [facility] (ABNORMAL) CBC without Differential (11/11/2021 4:31 AM CDT) [facility] Method [...] Venous) CDT AM CDT Gerard Andino M.D., MGraeme LAB BLOOD ADD-ON Performing Organization Address City/State/[facility] Phon e Number [facility] - [address] [place], [place] [address] [facility] [place] [place] [address] Laboratories-[facility] 200 [facility] Transfuse Red Blood Cells : (11/10/2021 9:05 PM CDT) Gerard Andino M.D. MSumaS. BLOOD TRANSFUSION ORDERABLES Transfuse Red Blood Cells : , 1 Units (11/10/2021 9:05 PM CDT) Gerard Andino M.D. M.S. BLOOD TRANSFUSION ORDERABLES US Paracentesis with [...] process. ?? All other fluids refer to [email or web address] for further interpretive information. This t est has been modified from the rural electrification engineer's instruc tions. Its performance characteristics were determi foreign by [facility] in a manner consistent with CLIA [...] AND STOOLS O JOSE Performing Organization Address City/[facility] Code Phon e Number [facility] - [address] Gram Stain (11/10/2021 2:32 PM CDT) [facility] Method Time Signature Gram Stain No organisms seen. 11/10/2021 DTL White blood cells present. 8:25 PM CDT Specimen Anatomical Collection Method Collection Time Receive d Time (Source) Location / / Volume Laterality Fluid 11/10/2021 2:32 PM 2 5:21 (Peritoneal CDT PM CDT Fluid) Comment: Specimen Source Site: Fluid Narrative [facility] - [facility] - 11/10/2021 8:25 PM CDT Bacterial Culture: Received Bactec aerob ic and Bactec anaerobic bottles Gerard Andino M.D., M.S. LAB MICROBIOLOGY - GENERAL O JOSE Performing Organization Address City/[facility] Phon e Number [facility] - [address] [place], [place] [address] [place] [address] Protein, Total, Body Fluid (11/10/2021 2:32 PM [...] ical findings. All other fluids refer to [email or web address] for further inter pretive information. This test has been modified from the rural electrification engineer's instructions. Its perform ance characteristics were determined by [facility] in a manner consistent with CLIA [...] Organization Address City/State/ZIP Code Phon e Number [facility] - [address] [place] [address] [facility] [place] [place] [address] Laboratories-[facility] 200 [facility] Cell Count and Differential, Body Fluid [...] Its performance characteri stics were determined by [facility] in a manner co nsistent with [...] 11/10 8:50 PM CDT DHPM Reviewed by: Tech 11/10/2021 8:50 PM CDT DHPM Specimen Anatomical Collection Method Collection Time Receive d Time (Source) Location / / Volume Laterality Fluid 11/10/2021 2:32 PM 2 3:47 (Peritoneal CDT PM CDT Fluid) Gerard Andino M.D., M.S. LAB BODY FLUIDS AND STOOLS O RDERAPREMA Performing Organization Address City/State/ZIP Code Phon e Number [facility] - [address] [place], [place] [address] [place] [address] Laboratories-[facility] [address] Bacterial Culture, Aerobic + [...] Fluid) Comment: Specimen Source Site: Fluid Narrative [facility] - [facility] - 11/15/2021 9:17 AM CDT Bacterial Culture: Received Bactec aerob ic and Bactec anaerobic bottles Gerard Andino M.D., M.S. LAB MICROBIOLOGY - GENERAL O RDERABLES Performing Organization Address [facility] Phon e Number [facility] - [address] [place] [address] [facility] [place] [place] [address] [facility] 200 [facility] Transfuse Red Blood Cells : (11/10/2021 12:21 PM CDT) Dina Campa M.D. BLOOD TRANSFUSION ORDERABLES Transfuse Red Blood Cells : , 1 Units (11/10/2021 12:21 PM CDT) Dina Campa M.D. BLOOD TRANSFUSION ORDERABLES Direct Antiglobulin Test (Poly) (11/10/2021 12:02 PM CDT) Patholo gist Method Time Signature Direct Negative Negative 11/10/2021 [facility] Antiglobulin 12:44 PM CDT Test, Polyspecific Specimen Anatomical Collection Method Collection Time Receive d Time (Source) Location / / Volume Laterality Blood (Blood, 11/10/2021 12:02 11/10/2021 Venous) PM CDT 12:16 PM CDT Dina Campa M.D. LAB BLOOD BANK TEST ORDERABL ES Performing Organization Address [facility] Phon e Number [facility] - [address] [place] [address] [facility] [place] [address] [facility] 200 [facility] (ABNORMAL) SPSMA Result (11/10/2021 12:02 PM [...] Basophils 2 0 - 2 % 11/10/2021 [facility] 2:35 PM CDT Manual Absolute 5.20 1.56 - 11/10/2021 [facility] Neutrophil Count 6.45 2:35 PM CDT x10(9)/L [...] Reviewed by: Tech 11/10/2021 2:35 PM CDT [facility] Specimen Anatomical Collection Method Collection Time Receive d Time (Source) Location / / Volume Laterality Blood (Blood, 11/10/2021 12:02 11/10/2021 Venous) PM CDT 12:29 PM CDT Dina Campa M.D. LAB BLOOD ADD-ON Performing Organization Address City/State/ZIP Code Phon e Number [facility] - [address] [place], [place] [address] [place] [address] Laboratories-[facility] [address] (ABNORMAL) Haptoglobin (11/10/2021 12:02 PM CDT) [facility] Haptoglobin, S <14 (L) 30 - 200 11/10/2021 [facility] mg/dL 5:27 PM CDT Specimen Anatomical Collection Method Collection Time Receive d Time (Source) Location / / Volume Laterality Blood (Blood, 11/10/2021 12:02 11/10/2021 3:46 Venous) PM CDT PM CDT Dina Campa M.D. LAB BLOOD ADD-ON Performing Organization Address City/State/ZIP Code Phon e Number [facility] [address] [place], [place] [address] [facility] [address] Laboratory Medicine and Pathology [address] TA CESAR (Lactate Dehydrogenase) (11/10/2021 12:02 PM CDT) [facility] Monica LD 208 122 - 222 11/10/2021 DTL U/L 1:10 PM CDT Specimen Anatomical Collection Method Collection Time Receive d Time (Source) Location / / Volume Laterality Blood (Blood, 11/10/2021 12:02 11/10/2021 Venous) PM CDT 12:48 PM CDT Dina Campa M.D. LAB BLOOD NON ADD-ON Performing Organization Address City/State/ZIP Code Phon e Number [facility] - [address] (ABNORMAL) Reticulocytes (11/10/2021 12:02 PM CDT) [...] M.D. LAB BLOOD ADD-ON Performing Organization Address City/[facility] Code Phon e Number [facility] - 200 [place], [place] [address] [place] [address] [place] [address] (ABNORMAL) Hemoglobin (11/10/2021 12:02 PM CDT) P athologist Signature Hemoglobin 6.9 (L) 11.6 - 15.0 11/10/2021 DTL g/dL 2:23 PM CDT Specimen Anatomical Collection Method Collection Time Receive d Time (Source) Location / / Volume Laterality Blood (Blood, 11/10/2021 12:02 11/10/2021 Venous) PM CDT 12:29 PM CDT Dina Campa M.D. LAB BLOOD ADD-ON Performing Organization Address City/State/ZIP Code Phon e Number [facility] - 200 [place], [place] [address] [place] [address] [facility] 200 [facility] (ABNORMAL) Prothrombin Time (PT) (11/10/2021 4:38 [...] M.D. LAB BLOOD ADD-ON Performing Organization Address City/[facility]/ZIP Code Phon e Number [facility] - [address] Phosphorus Inorganic (11/10/2021 4:38 AM CDT) [...] Code Phon e Number [facility] [address] Magnesium (11/10/2021 4:38 AM CDT) P athologist Signature Magnesium, S 1.7 1.7 - 2.3 11/10/2021 DTL mg/dL 6:10 AM CDT Specimen Anatomical Collection Method Collection Time Receive d Time (Source) Location / / Volume Laterality Blood (Blood, 11/10/2021 4:38 AM 11/11/19 5:51 Venous) CDT AM CDT Dina Campa M.D. LAB BLOOD ADD-ON Performing Organization Address City/State/ZIP Code Phon e Number [facility] - 200 [place], [place] [address] [facility] [place] [place] [address] Laboratories-[facility] 200 [facility] (ABNORMAL) Basic Metabolic Panel (11/10/2021 4:38 [...] 11/10/2021 DTL Black/ mL/min/BSA 7:08 AM CDT Kittitian Comment: ----ADDITIONAL INFORMATION---- Estimated GFR calculated using [...] Organization Address City/State/ZIP Code Phon e Number [facility] - 200 [place], [place] [address] [facility] [place] [address] Laboratories[facility] 200 [facility] (ABNORMAL) CBC with Differential, Blood (11/10/2021 [...] Organization Address City/State/ZIP Code Phon e Number [facility] - 200 [place], [place] [address] [facility] [place] [place] [address] Laboratories-[address] Type and Screen (with reflex Antibody [...] BANK TEST ORDERABL ES Performing Organization Address City/[facility]/ZIP Code Phon e Number [facility] - 200 [place], [place] [address] [facility] [place] [address] Laboratories-[address] ECG 12 Lead (11/09/2021 10:47 PM CDT) P athologist Signature Ventricular Rate 88 BPM MUSE ECG/Min FL Interval 158 ms MUSE QRSD Interval 84 ms MUSE QT Interval 344 ms MUSE QTC Interval 417 ms MUSE P [place] 64 degrees MUSE R [place] 46 degrees MUSE T Wave [place] 37 degrees MUSE Specimen Anatomical Collection Method [...] Address City/State/ZIP Code Phon e Number BERTHA RODRIGUEZ US Liver Doppler (11/09/2021 10:04 PM CDT) [...] LI-RADS is supported and endorsed by the [place] [employer]. More information can be found on the followin g link: https://www.acr.org/Clinical-Resources/Ouzrvqvdl-vxp-Jdfa-Systems/LI-RADS/Ultras ejnh-[email or web address]-v2017 Procedure Note Rex Jenkins M.D. - 11/10/2021 [...] LI-RADS is supported and endorsed by the [place] [employer]. More information can be found on the Handmark link: https://www.acr.org/Clinical-Resources/Plwjtpeok-afe-Nemz-Systems/LI-RADS/Ultras [email or web address] IMPRESSION: 1. Cirrhotic morphology of the liver wit hout suspicious focal hepatic lesions. LI-RADS 1B. 2. Hepatic arterial and venous vasculatu re is patent with antegrade flow. Elevated main hepatic artery velocities. 3. Moderate volume ascites. Dina COOLG US PROCEDURES Bacteria / Ines Culture, Blood #2 (11/09/2021 8:25 PM CDT) [facility] Method Time Signature Bacteria/Adriana No growth 11/14/2021 DTL da Culture, after 5 10:02 PM CDT Blood days of incubation. Specimen (Source) Anatomical Collection Method Collection Time Re ceived Time Location / / Volume Laterality Blood (Blood, 11/09/2021 8:25 11/09/2021 9:40 Peripheral Draw) PM CDT PM CDT Comment: Specimen Source Site: Blood Narrative [facility] - 11/14/2021 10:02 PM CDT Received Bactec Peds bottle Dina Campa M.D. LAB MICROBIOLOGY - GENERAL O JOSE Performing Organization Address City/[facility]/ZIP Code Phon e Number [facility] - 200 [place], [place] [address] [place], [place] [id number] [place] [address] Bacteria / Ines Culture, Blood #1 (11/09/2021 [...] Source Site: Blood Narrative [facility] - 11/14/2021 8:02 PM CDT Received Bactec Peds bottle Dina Campa M.D. LAB MICROBIOLOGY - GENERAL Marylou GARCIA Performing Organization Address City/[facility]/ZIP Code Phon e Number [facility] - [address] [place], [place] [address] [place], [place] [address] [place] [address] Phosphorus Inorganic (11/09/2021 7:09 PM CDT) P athologist Signature Phosphorus 4.3 2.5 - 4.5 11/09/2021 DTL (Inorganic), S mg/dL 8:15 PM CDT Specimen Anatomical Collection Method Collection Time Receive d Time (Source) Location / / Volume Laterality Blood (Blood, 11/09/2021 7:09 PM 11/10/19 22 7:44 Venous) CDT PM CDT Dina Campa M.D. LAB BLOOD ADD-ON Performing Organization Address City/State/ZIP Code Phon e Number [facility] - [address] [place], [place] [address] [facility] [place] [address] Laboratories-[facility] [address] AFP (Alpha-Fetoprotein), Tumor Marker (11/09/2021 7:09 PM CDT) athologist Signature Alpha-Fetoprote 6.4 ng/mL 11/10/2021 [facility] in, Tumor 3:04 PM CDT Marker, S Comment: ----REFERENCE VALUE---- <8.4 Reference values are for non- subjects only; production of AFP elevates values in women. ----ADDITIONAL INFORMATION---- In this Richie Morgan assay AFP concen trations are <8.4 ng/mL [...] method is an immunoenzymatic assay manufactured by [employer]. and is tested on the [employer] DxI 800. Values obtained with different assay [...] Volume Laterality Blood (Blood, 11/09/2021 7:09 PM 07/11/20 22 2:21 Venous) CDT PM CDT Dina Campa M.D. LAB BLOOD ADD-ON Performing Organization Address City/[facility]/ZIP Code Phon e Number [facility] [address] [place], [place] [address] [facility] [place] [address] Laboratory Medicine and Pathology [address] [...] M.D. LAB BLOOD ADD-ON Performing Organization Address City/[facility] Code Phon e Number [facility] - [address] [place] [address] [facility] (ABNORMAL) Lactate, baseline (11/09/2021 7:09 PM CDT) P athologist Signature Lactate, P 2.7 (H) 0.5 - 2.2 11/09/2021 [facility] mmol/L 7:35 PM CDT Specimen Anatomical Collection Method Collection Time Receive d Time (Source) Location / / Volume Laterality Blood (Blood, 11/09/2021 7:09 PM 11/10/19 22 7:20 Venous) CDT PM CDT Dina Campa M.D. LAB BLOOD NON ADD-ON Performing Organization Address City/[facility]/ZIP Code Phon e Number [facility] - [address] [place] [address] 05 [facility] STMA [place] [address] [facility] (ABNORMAL) Hepatic Function Panel (11/09/2021 7:09 PM [...] Organization Address City/State/ZIP Code Phon e Number [facility] - 200 [place], [place] [address] [facility] [place] [address] Laboratories[facility] 200 [facility] (ABNORMAL) Basic Metabolic Panel (11/09/2021 7:09 [...] 11/09/2021 DTL Black/ mL/min/BSA 9:49 PM CDT Kitt[place] Comment: ----ADDITIONAL INFORMATION---- Estimated GFR calculated using [...] M.D. LAB BLOOD ADD-ON Performing Organization Address City/[facility] Code Phon e Number [facility] [place] [address] Laboratories-[address] (ABNORMAL) CRP (C-Reactive Protein) (11/09/2021 7:09 PM CDT) P athologist Signature C-Reactive 8.7 (H) <=8.0 mg/L 11/09/2021 DTL Protein (CRP), 8:07 PM CDT S Specimen Anatomical Collection Method Collection Time Receive d Time (Source) Location / / Volume Laterality Blood (Blood, 11/09/2021 7:09 PM 11/10/19 22 7:44 Venous) CDT PM CDT Dina aCmpa M.D. LAB BLOOD ADD-ON Performing Organization Address City/[facility]/ZIP Code Phon e Number [facility] - [address] [place] [address] Laboratories-[facility] [address] (ABNORMAL) CBC with Differential, Blood (11/09/2021 7:09 PM CDT) [facility] Method Time Signature Hemoglobin 8.0 (L) [...] PM 11/10/19 7:28 Venous) CDT PM CDT Dian Campa M.D. LAB BLOOD ADD-ON Performing Organization Address City/State/ZIP Code Phon e Number [facility] - [address] [place], [place] [address] [facility] [place] [address] Laboratories-[facility] [address] documented in this encounter Visit Diagnoses Diagnosis Hepatic Encephalopathy Without Coma (HCC ) - Primary Hepatic Encephalopathy Without Coma (HCC ) Cirrhosis Alcoholic (HCC) Ascites Failure Renal Acute [...] Administer the 25% solution at 100 mL/hr vgsgksmvweixq-fyaiosygnv-gzmvrjwp in Lipoderm Given 11/11/2021 9 :38 AM [...] Administer the 25% solution at 100 mL/hr hsubkepehnycu-eqtuoxmprr-zkxhknxa in Lipoderm 2%-5%-5% cream 1 g 1337 (Given - Provider: Neptali Calvillo RGabby)2138 (Given - Provider: Karen Palacio R.N.) 0938 (Given - Provider: Bernardo Nguyen R.N.) 1 g, topical, 2 times daily, First dose on Wed11/10/21 at 1330 ciprofloxacin tablet 500 mg (CIPRO) 1049 (Given - Provider: Neptali Calvillo R.N.) 0635 (Given - Provider: Karen day R.NSuma) [...] 917 (New Bag - Provider: Neptali Calvillo RSumaNSuma) 2 g, intravenous, at 25 mL/hr, Administe r over 120 Minutes, Once, On Wed11/10/21 at 0630, For 1 dose, Over 2 hours. oxyCODONE IR tablet 2.5 mg (ROXICODONE) (COMPLETED) 2202 (Given - Provider: Karen Palacio R.N.) 2.5 mg, oral, Once, On Wed11/10/21 at 2200, For 1 dose oxyCODONE IR tablet 5 mg (ROXICODONE) (COMPLETED) 1122 (Given - Provider: Bernardo Nguyen R.N.) 5 [...] thickened liquids. prochlorperazine injection 5 mg (COMPAZINE) 0224 (Given - Provider: Karen Palacio R.N.) 5 [...] as of this encounter Care Teams Senior It Security Analyst Relationship Specialty Start Date End Date Elsewhere, Pcp PCP - General Family Medicine 03/10/20 11/30/21 [facility] [place] [facility] 08/25/21 Ervin Schroeder MD Referring Provider Family Medicine 03/24/[address] [place] [address] documented as of this encounter
--- OUTSIDE RECORDS SUMMARY | 2022-02-14 22:06 | XMS_ITS | Encounter Summary ---
:1990 Author Organization [facility] Address [address] [place] [address] Care Team Providers Name Role Phone Elsewhere, Pcp Primary Care Provider Unavailable Reason for Referral Outpatient (Routine) - Authorized Specialty Diagnoses / Procedures Referred By Contact Refer red To Contact Nicotine Dependence Diagnoses Abuse Tobacco Smoking Ervin Schroeder [place] M.D. [address] [place] [address] Referral ID Status Reason Start Date Expiration Date Visits V isits Requested Authorized [id number] Authorized 11/26/2021 11/26/2022 1 1 Encounter Details Date Type Department Care Team Description 11/14/2021 [facility] Ervin Schroeder Tobacco Smoking (Primary Dx); AND CLINICS TOBY Schaefer M.D. Unspecified Cirrhosis Of Liver (HCC) CLINIC [address] [facility] [address] [place], [place] [id number] [phone] Social History Tobacco Use Types Packs/Day Years [...] you attend christian or Patient refused 2021 yazidism services? 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 [address] [place] [phone] Virtual Visit Transplant LuisMatthew abdul 2 Tyrell Rodriguez M.D. [address] [place] [phone] Office Visit Gastroenterology and Matthew Jerome 2 Hepatology Tyrell Rodriguez M.D. [address] [place] [phone] Appointment Radiology Queenie Matthew 2 Tyrell Rodriguez M.D. [address] [place] [phone] Hospital Gastroenterology and Queenie Matthew Cirrhos is Alcoholic (HCC) 2 Encounter Hepatology Joshua RodriguezBLilian Staples [address] [place] [phone] Anesthesia Event Gastroenterology and Rl, 2 Hepatology Ervin Burgos M.D. 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
--- OUTSIDE RECORDS SUMMARY | 2022-02-14 22:06 | XMS_ITS | Encounter Summary ---
:1990 Author Organization [facility] Address [address] [place] [address] Care Team Providers Name Role Phone Elsewhere, Pcp Primary Care Provider Unavailable Encounter Details Date Type Department Care Team Description 11/04/2021 Clinical Communication Department of Symone Beebe Gastroenterology in [address] [place] [phone] Social History Tobacco Use Types Packs/Day Years [...] attend jehovah's witness or Patient refused 2021 anabaptism services? 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 [address] [place] [phone] Appointment Gastroenterology and Adrianne, 2 Hepatology Yue Burciaga M.D. [address] [place] [phone] Virtual Visit Transplant Matthew Jerome 2 Tyrell Rodriguez M.D. [address] [place] [phone] Office Visit Gastroenterology and LuischantellMatthew 2 Hepatology Tyrell Rodriguez M.D. [address] [place] [phone] Appointment Radiology Matthew Jerome 2 Joshua RodriguezBLilian Staples [address] [place] [phone] Hospital Gastroenterology and Luischantell Matthew Cirrhos is Alcoholic (HCC) 2 Encounter Hepatology Tyrell Rodriguez M.D. [address] [place] [phone] Anesthesia Event Gastroenterology and Rl, 2 Hepatology Ervin Burgos M.D. 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 08/25/21 Ervin Schroeder MD Referring Provider Family Medicine 03/24/[address] [place] [address] documented as of this encounter
--- OUTSIDE RECORDS SUMMARY | 2022-02-14 22:06 | XMS_ITS | Encounter Summary ---
:1990 Author Organization [facility] Address [address] [place] [address] Care Team Providers Name Role Phone Elsewhere, Pcp Primary Care Provider Unavailable Reason for Referral Transplant (Routine) - Closed Specialty Diagnoses / Procedures Referred By Contact Refer red To Contact Transplant Surgery / Joel Tan [facility] Transplant Shala, M.S.W. [address] [place] [address] Referral ID Status Reason Start Date Expiration Date Visits Requ ested Visits Authorized [id number] Closed 10/29/2021 10/29/2022 1 1 Scheduling Instructions Please schedule a 60 min visit for me to meet with the patient when she returns in the future for pre-transplant follow up. Thank you. Encounter Details Date Type Department Care Team Description 10/29/2021 Orders Only Department of Social Work Rajiv Tan, in [facility] Shala, M.S.W. 200 [facility] [address] [place] [address] [place] [address] [phone] (Wo rk) Social History Tobacco Use Types [...] you attend anglican or Patient refused 2021 mormonism services? 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 [address] [place] [phone] Virtual Visit Transplant LuisMatthew abdul 2 Y MSumaB.BLilian Bedolla [address] [place] [phone] Office Visit Gastroenterology and Matthew Jerome 2 Hepatology Vik RodriguezBLilian Bedolla [address] [place] [phone] Appointment Radiology LuisNew abdular 2 YJoshuaB.B.Lilian [place] [address] [place] [phone] Hospital Gastroenterology and Matthew Jerome Cirrhos is Alcoholic (HCC) 2 Encounter Hepatology Joshua RodriguezB.BLilian Bedolla [address] [place] [phone] Anesthesia Event Gastroenterology and Rl, 2 Hepatology Ervin Burgos M.D. 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 Hypertension Portal (HCC) Scheduled Referrals Name Type Priority Associated Order Schedule Diagnoses Transplant Liver Outpatient Referral Routine Expe cted: office visit 01/26/2022 (clinic) (Approximate), Expires: 01/29/2023 documented as of this encounter Visit Diagnoses Not on filedocumented in this encounter Additional Health Concerns Infection Onset Date Last Indicated Resolved Time COVID19 Pending 11/12/2021 11/12/2021 11/12/2021 4:20 AM CDT [id number]: Patients who are NOT sev erely immunocompromised: Asymptomatic - At least 10 days have passed since the date of the first positive PCR test 11/12/2021 11/12/2021 11/13/2021 3:19 PM CDT and Patient has remained asymptomatic throughout their infection Assessment Noted Time PHQ-9 Depression Total Score: 10 10/06/2021 5:00 PM CD T documented as of this encounter Care Teams Air Antisubmarine Officer Relationship Specialty Start Date End Date Elsewhere, Pcp PCP - General Family Medicine 03/10/20 11/30/21 [facility] [place] [facility] 08/25/21 Ervin Schreoder MD Referring Provider Family Medicine 03/24/[address] [place] [phone] documented as of this encounter
--- OUTSIDE RECORDS SUMMARY | 2022-02-14 22:06 | XMS_ITS | Encounter Summary ---
:1990 Author Organization [facility] Address [address] [place] [address] Care Team Providers Name Role Phone Elsewhere, Pcp Primary Care Provider Unavailable Reason for Referral Outpatient (Routine) - Authorized Specialty Diagnoses / Procedures Referred By Contact Refer red To Contact Diagnoses Cirrhosis Alcoholic (HCC) Gerard Andino M.D., M.S. [address] [place] [address] Referral ID Status Reason Start Date Expiration Date Visits V isits Requested Authorized [id number] Authorized 11/26/2021 11/26/2022 1 1 Medication Prior Authorization - Denied Specialty Diagnoses / Procedures Referred By Contact Refer red To Contact Gerard Andino M.D. , M.S. [address] [place] [phone] Referral ID Status Reason Start Date Expiration Date Visits Requ ested Visits Authorized [id number] Denied 1 1 Reason for Visit Reason Comments Altered Mental Status Auth/Cert Specialty Diagnoses / Procedures Referred By Contact Refer red To Contact Diagnoses Change Mental Status Malaise (Concern For Covid-19) Encephalopathy Procedures ETU Referral ID Status Reason Start Date Expiration Date Visits Requ ested Visits Authorized [id number] 1 1 Encounter Details Date Type Department Care Team Description 11/12/2021 - [facility] Rosaura Sevilla M.D., M.P.H. [address] [place] [address] Encephalopathy (Primary Dx); [facility] [address] [place] [address] Change Mental Status; [facility] Jody Aguilar M.B., B.Chir. [address] [place] [phone] Malaise (Concern For Covid-19); [facility] ([facility]) [facility], Third Floor [address] [place] [phone] Social History Tobacco Use Types Packs/Day Years [...] you attend evangelical or Patient refused 2021 gnosticist services? 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 [...] DISCHARGE RECOMMENDATIONS - recommend establishing care with [facility] to centralize care FOR PCP - [...] Scheduled Appointments 11/26/2021 4:00 PM SHADI COUNSELOR MERLYN 18 Nicotine Dependence 11/28/2021 1:30 PM [...] She was transferred via EMS to the [facility] Emergency Department. On arrival she was [...] AM CDT You were discharged from the [facility] Gastroenterology A Service. Please identify this service name if you call with questions after hospitalization. AttachmentsThe following attachments cannot be sent through Care Everywhere. Diclofenac (On the skin) (Tuvaluan)Lidocaine Patch (On the skin) (Tuvaluan) Sulfamethoxazole/Trimethoprim (By mouth) (Tuvaluan)documented in this encounter Medications at Time of [...] Medical Care - Home Health Care Name: [facility] Office Contact: Nurse How do we reach your agency on a weekend/holiday? [phone] ( FYI unavailable to re-start services on [...] directive. PRIMARY SERVICE: - Please provide a non-[facility] home health order for: shelter care, medication management in the After Visit [...] secondary to decompensated alcoholic liver disease Catia Craias is a 31-year-old lady with known alcoholic liver disease who is being readmitted withhepatic encephalopathy most likely due to noncompliance with lactulose therapy. Some of her issues could be from her other medications such as the neuromodulation she is using and the opioids. We will try and minimize these if possible in the penitentiary. We have discontinued gabapentin and also her [...] Magic Cup supplements available. Danie albright requested science writer order her some apple slices and [...] -13 kg Estimated Needs: Total Calorie Needs: 3047-4325 calories/day Method to Estimate Energy Needs: [place] (Basal to Basal + 20% (HB +20- [...] about patient's nutritional care please contact pager [phone] on weekdays or [phone] on weekends/holidays. Jody Aguilar M.B., B.Chir. - [...] and minimize these if possible in the continuous churn buttermaker. We have discontinued gabapentin and also her [...] Bergeron M.D. - 11/25/2021 6:14 AM CDT [facility] Gastroenterology A PROGRESS NOTE SUBJECTIVE Ms. [...] / PLAN Ms. Carias is hospitalized on [facility] G[facility] A for evaluation and management [...] Acute care monitoring needs Plan discussed with [facility] Gastro[facility] A Water Pump Assembler, Jody Hernandez M.B., who was present during judd portions of the evaluation today. Please page the [facility] [place] [place] [phone] with any questions. Jody Aguilar M.B., B.Chir. [...] and minimize these if possible in the continuous churn buttermaker. We have discontinued gabapentin and also her [...] / PLAN Ms. Carias is hospitalized on [facility] G[facility] A for evaluation and management [...] Acute care monitoring needs Plan discussed with [facility] G[facility] A Water Pump Assembler, Jody Hernandez MMinoo, who was present during judd portions of the evaluation today. Please page the [facility] [place] [place] [phone] with any questions. Dina Campa M.D. Internal [...] thiamine, vitamin A, zincsupplementation. Paty Maynard, PharmD, [facility] [phone] Jody Aguilar M.B., B.Chir. - 11/23/2021 9:26 [...] and minimize these if possible in the continuous churn buttermaker. We have discontinued gabapentin and also her [...] 22 2021. She went out to [facility] yesterday. She was talking in coherent sentences [...] and minimize these if possible in the penitentiary. We have discontinued gabapentin and also her [...] and minimize these if possible in the penitentiary. We have discontinued gabapentin and also her [...] Medicine and can be reached via pager [phone]. Session Information Music Therapy Time Spent (Min): [...] antibiotics, spironolactone, thiamine 100 mg, vitamin A 24848 units Wed, zinc sulfate 220 mg Pertinent [...] 0 kg Estimated Needs: Total Calorie Needs: 7248-0196 calories/day Method to Estimate Energy Needs: Mueller-[place] (Basal to Basal + 10%) Weight Used [...] about patient's nutritional care please contact pager [phone] on weekdays or [phone] on weekends/holidays. Jody Aguilar M.B., Umu. - [...] and minimize these if possible in the continuous churn buttermaker. We have discontinued gabapentin and also her [...] Medical Care - Home Health Care Name: [facility] Office Contact: Nurse How do we reach your agency on a weekend/holiday? [phone] ( FYI unavailable to re-start services on [...] directive. PRIMARY SERVICE: - Please provide a [facility] home health order for: shelter care, medication management in the After Visit [...] / PLAN Ms. Carias is hospitalized on [facility] A for evaluation and management [...] Vitamin and mineral supplements Plan discussed with [facility] A Water Pump Assembler, Jody Hernandez M.B., who was present during judd portions of the evaluation today. Please page the [facility] [place] [place] [phone] with any questions. Dina Campa M.D. Internal Medicine, PGY-2 Hima Messer M.D. - 11/19/2021 12:30 PM CDT SUBJECTIVE Interim developments since the initial psychiatric consult and subsequent follow-up were reviewed prior to meeting with Ms. Carias who tells me she is at [facility] in [place], [place] and it is 2021 (as she [...] contact the psychiatry consult service pager at [phone]. Hima Messer M.D. 11/19/2021 Nabila Maynard, Pharm.D., [...] Nutrition: On tube feeds. All meds via DoubleUpube. Paty Maynard, PharmD, [facility] [phone] Jody Aguilar M.B., B.Chir. - 11/19/2021 9:44 [...] and minimize these if possible in the penitentiary. We have discontinued gabapentin and also her [...] Guerrier M.D. - 11/18/2021 5:19 PM CDT [facility] Palliative Care Consultation Service Progress Note SUBJECTIVE [...] for having the Palliative Medicine team A ([phone]) participate in the care of this patient. [...] team, and can be reached via pager [phone]. Session Information Music Therapy Time Spent (Min): [...] prevacid, spironolactone, thiamine 100 mg, vitamin A 16344 units Wed, zinc sulfate 220 mg Pertinent [...] 0 kg Estimated Needs: Total Calorie Needs: 3570-0898 calories/day Method to Estimate Energy Needs: Mueller-[place] (Basal to Basal + 10%) Weight Used [...] about patient's nutritional care please contact pager [phone] on weekdays or [phone] on weekends/holidays. Jody Aguilar M.B., B.Chir. - [...] and minimize these if possible in the penitentiary. We have discontinued gabapentin and also her [...] / PLAN Ms. Carias is hospitalized on [facility] A for evaluation and management [...] Please contact the primary service pager - [phone] with any questions. Electronically signed by: Gerard [...] 0 kg Estimated Needs: Total Calorie Needs: 6991-7848 calories/day Method to Estimate Energy Needs: Mueller-[place] (Basal to Basal + 10%) Weight Used [...] about patient's nutritional care please contact pager [phone] on weekdays or [phone] on weekends/holidays. Tiffanie Boyd - 11/17/2021 1:00 [...] Pop Favorite Songs, Artists, or Radio Stations: [place], Pop, soft rock Music Therapy Treatment Plan [...] shared their love for Yareli, and classic [place] songs were played to promote relaxation and coping support. Christelle gave a smile in response to Toy Storysong, and mouthed the words to You'll Be in My Heart. Lobito expressed appreciation for music therapy support. Music therapy will continue to be available to support Christelle as a part of the Palliative Medicine team, and can be reached via pager [phone]. Session Information Music Therapy Time Spent (Min): [...] and minimize these if possible in the continuous churn buttermaker. We have discontinued gabapentin and also her [...] 8:00 AM CDT Neurology Consult Note Supervising Water Pump Assembler: Dr. Renee Gale Service pager: [phone] SUBJECTIVE Referral [facility] Consult question: Alternative neurological explanation for [...] Friends and Family: Twice a week Attends [facility]: Never Active Member of Clubs or [...] to page the Neurology Consult pager at [phone] with any questions or concerns and we [...] and minimize these if possible in the continuous churn buttermaker. We have discontinued gabapentin and also her [...] of the Neurology consult Service. Examined in [place] [address] room 251. Neuro: While her eyes were [...] follow. Please page the Neurology Consult Service ([phone]) with any questions. Total time 25 min. DIAGNOSES #1 Hepatic encephalopathy #2 Decompensated alcoholic liver disease #3 Rule out nonconvulsive seizures T Gisel Edwards M.D. - 11/15/2021 2:47 PM CDT Neurology Consult Note Supervising Water Pump Assembler: Dr. Renee Gale Service pager: [phone] SUBJECTIVE Referral [facility] Consult question: Alternative neurological explanation for [...] Friends and Family: Twice a week Attends [facility]: Never Active Member of Clubs or [...] injection 5,000 Units, 5,000 Units, subcutaneous, Q8H [facility], Dina Campa M.D., 5,000 Units at 11/15/21 [...] Randal Covarrubias, Pharm.D., R.Ph., 550 mg at 11/15/21 0854 thiamine tablet 100 mg (VITAMIN B1), 100 mg, gastric tube, Daily, Harish Schulz M.D., 100 mg at11/15/21 0854 vitamin A 1,507 mcg (5,025 Unit)/0.05 mL solution 10,050 Units, 10,050 Units, gastric tube, Once per day on Wed, Randal Covarrubias, Emperatriz.DSuma, R.Ph., 10,050 Units at 11/14/21 0909 zinc [...] to page the Neurology Consult pager at [phone] with any questions or concerns and we [...] and minimize these if possible in the penitentiary. We have discontinued gabapentin and also decrease [...] 71.9 kg (11/12/2021) Current Weight: 71.9 kg [place] Body Weight (Calculated) : 51.4 kg BMI [...] 61.6 kg Estimated Needs: Total Calorie Needs: 2757-5014 calories/day Method to Estimate Energy Needs: Mueller-[place] (Basal to Basal + 10%) Weight Used [...] formula, 1500 calories, and 68 gm protein, [id number]% of Dietary Reference Intake for vitamins/minerals weston [...] about patient's nutritional care please contact pager [phone] on weekdays or [phone] on weekends/holidays. Gerard Andino M.D., M.S. - [...] / PLAN Ms. Carias is hospitalized on [facility] G[facility] A for evaluation and management of hepatic encephalopathy in the setting of lactulose noncompliance. Her encephalopathy has resolved with appropriate administration of lactulose and bowel movement resumption. She is nonverbal at the moment but alert. 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 Electronically signed by: Gerard [...] tryand minimize these if possible in the penitentiary. We have discontinued gabapentin and also decrease [...] she does not know anyhing about her gnosticist. Family: Family members were not present Maria De Jesus/Tradition: The patient's gnosticist is unknown Plan: Will remain available for spiritual care as needed or requested. Chaplains can be contacted bypaging [phone] ([facility]) or [phone] ([place]). Jody Aguilar M.B., B.Chir. - 11/13/2021 10:05 [...] tryand minimize these if possible in the continuous churn buttermaker. We will discontinue gabapentin and also decrease [...] / PLAN Ms. Carias is hospitalized on [facility] G[facility] A for evaluation and management of hepatic encephalopathy in the setting of lactulose noncompliance. Her encephalopathy has resolved with appropriate administration of lactulose and bowel movement resumption. We will continue to engage Ms. Carais and her colleagues to, but strategies to [...] Please contact the primary service pager - [phone] with any questions. Electronically signed by: Gerard [...] COVID therapies indicated. Evon Rodriguez Pharm.D., R.Ph. [phone] documented in this encounter H&P Notes Jody [...] tryand minimize these if possible in the continuous churn buttermaker. #2 Ascites This is still present. #3 History of acute kidney injury Repeat creatinine is still in a normal range at 0.7. #4 Marijuana use Gerard Andino M.D., M.S. - 11/12/2021 3:38 AM CDT [facility] Gastroenterology A Admission Note REFERRAL SOURCE: [facility] Emergency Department PRIMARY CARE PROVIDER: Primary Care [...] She was transferred via EMS to the [facility] Emergency Department. On arrival, patient reportedly [...] including alcoholic cirrhosis who is hospitalized on [facility] G[facility] A for evaluation and management [...] will be formally staffed with GI A mergers and acquisitions consultant Dr. Aguilar in the morning. Please see the supervisory note for further details. Please contact the primary service pager - [phone] with any questions. Electronically signed by: Gerard [...] follow. Please page the Neurology Consult Service ([phone]) with any questions. DIAGNOSES #1 Hepatic encephalopathy [...] versus catatonia versus acute neurological event Ms. Craias' history and current presentation do not support [...] Donna Varghese M.D. CT CT Job ID: [id number] Milagros Patel L.G.S.W., M.S.W. - 11/15/2021 11:03 [...] home nursing to help with medications with [facility] Care. Social work will reconnect to services. Lobito appreciates regular medical updates. OBJECTIVE Patient is hospitalized on [id number]. ASSESSMENT / PLAN ASSESSMENT Patient not appropriate to assess. Patient significant other Lobito is a reliable historian. PLAN -social work submitted the reconnect to [facility] Health service. Danny Babin, M.S.W. 11/15/21 T Rachel Winston M.D. - 11/15/2021 9:11 AM CDT Psychiatry Consult Note Consult Question - encephalopathy and hallucination not explained by hepatic etiology, concern for catatonia RECOMMENDATIONS *Please refer to the mergers and acquisitions consultant's note for final recommendations* Patient's presentation [...] Carias is a 31 y.o. female from [place], [place] who was admitted 11/12/2021 1:11 [...] Friends and Family: Twice a week Attends [facility]: Never Active Member of Clubs or [...] contact the C/L Psychiatry on-call service pager [phone] with any questions. Rachel Winston M.D. Instructional Leader Nessa Mcfarland M.D. - 11/14/2021 4:21 PM CDT [facility] Palliative Medicine DIRECTOR OF ACADEMIC/PA Collaborative Visit Note I have discussed the patient with Zenobia Nguyễn APRN/DAPHNEY. I have reviewed the pertinent history. I discussed the impression and plan with the DIRECTOR OF ACADEMIC/PA. I agree with the history, examination, impression, and recommendations as documented in today's note from the DIRECTOR OF ACADEMIC/PA except as documented below. Ms. Carias is [...] CDTAssociated Order(s): IP CONSULT TO PALLIATIVE CARE [facility] Palliative Medicine New Consult Note Patient: Catia Carias; 31 y.o.female Location: [address] [place] [address] Date of Service: 11/14/2021 Time of Visit: 3:56 PM CDT Hospital Admission Date: 11/12/2021 1:11 AM Hospital Day: 2 Primary Informatics Manager: Jody Aguilar M.B., * Primary Care Provider: [...] have reviewed the patient???s record in the [place] Prescription Monitoring Program (CONDITIONING COACH) with no unexpected findings. The following portions [...] tube, TID Given, 20 g at 11/14 132 lansoprazole suspension 30 mg (PREVACID) 30 mg, [...] also encouraged him to bring their dog Catarina to the hospital for a visit. Palliative Care will continue to follow, though we will not plan to see Christelle over the course of the weekend as we are not currently managing symptoms. Should questions or concerns arise, however, pleasedon't hesitate to contact us at service pager [phone]. It is our pleasure to have the opportunity to participate in Christelle's continued care. Thank you. Zenobia Nguyễn APRN, [facility] for Palliative Medicine documented in [...] lacking in appropriate nutritional intake. Wheelchair ride Mobile [employer] Szl.it was offered as well as a shower and pt refused at this time. Problem: SAFETY ADULT Goal: Maintain a safe environment Outcome: Progressing Note: Pt transitioned to Video monitor from [place], as she has been appropriate in the [...] for catheter care to be done by STATISTICAL CONSULTANT/IA. RN encouraged taking medications PO and reiterated [...] 11/22/21 Time initiated: 1819 Initiated by: Other (STATISTICAL CONSULTANT in hallway with patient) ASSESSMENT: Patient is a 31 y.o. female admitted to [facility] for Change Mental Status. When this science writer was walking to a consultation Ms. Carias was ambulating in the hallway with her assigned STATISTICAL CONSULTANT. Patient impulsively got up from wheelchair with no concern for the lines she was connected to. She was attempting to use the phone at the nurses station. Ms. Carias stated to an individual on the phone (possibly [facility] splicing machine operator), you need to come pick me up, when individual responded questioning her current location, she hung up the phone. When talking with the patient she was initially calm. Ms. Carias suddenly changed her facial expression and hit this science writer on the arm and stated, I'm scared. [facility] Security wascalled to assist. Patient's assigned nurse [...] free to contact the ROSMERY RN at [phone], or in an emergent situation by activating the ROSMERY team through the hospital splicing machine operator by dialing 911. Heather Andrea R.N. - 11/21/2021 8:00 PM CDT This science writer making entry as this happened when I came on shift. Patient was assisted to the to betaken outside per service request. Pt was taken out to the courtyard by the STATISTICAL CONSULTANT and boyfriend Bob.Immediately after going to the courtyard, the patient would not follow directions according to the STATISTICAL CONSULTANT. STATISTICAL CONSULTANT tried to get her to stay in her w/c and she would not comply. Pt got out of the w/c and laid in the grass. STATISTICAL CONSULTANT hit her duress button on her badge [...] staring during questioning/commands. Frequently asked for BF Olbito who was in the room and was [...] M.P.H. - 11/12/2021 3:22 AM CDT ED BIOMETRIC SCREENER NOTE 31 year old female with h/o [...] a supervisoryrole. Rosaura Sevilla M.D., M.P.H. 11/17/21 0817 Rosaura Sevilla M.D., M.P.H. 11/17/21 5302 Titi Oswald M.D. - 11/12/2021 1:54 AM [...] the radiology report(s). Titi Oswald M.D. Resident 11/12/2135 Titi Oswald M.D. Resident 11/16/212325 Kindra Dickson R.N. - 11/12/2021 1:48 AM CDT Patient presents to the [facility] via EMS for altered mental status. Patient was discharged yesterday from [facility] for hospitalization of hepatic encephalopathy. [...] coordinate the care. For questions, contact the [facility] Covid Care Team (MWCCT): Pager: [phone] In basket: P RST/[facility] COVID-19 POSITIVE Covid Care e-consult NOTE: At the time of testing, patients are instructed to obtain the result by calling the [employer] result line or by checking their online [...] She was transferred via EMS to the [facility] Emergency Department. On arrival she was [...] Appointment Radiology Matthew Jerome 2 Y[address]rell [address].D. [address] [place] [phone] Appointment Gastroenterology and Adrianne, 2 Hepatology Yue Burciaga M.D. [address] [place] [address], [place] [address] Virtual Visit Transplant Matthew Jerome 2 Tyrell Rodriguez M.D. [address] [place] [phone] Office Visit Gastroenterology and Matthew Jerome 2 Hepatology Tyrell Rodriguez M.D. [address] [place] [phone] Appointment Radiology LuisMatthew abdul 2 Tyrell Rodriguez M.D. [address] [place] [phone] Hospital Gastroenterology and Matthew Jerome Cirrhos is Alcoholic (HCC) 2 Encounter Hepatology Tyrell Rodriguez M.D. [address] [place] [phone] Anesthesia Event Gastroenterology and Rl, 2 Hepatology Ervin Burgos M.D. [address] [place] [phone] Surgery Gastroenterology and Matthew Jerome ESOPHAG OGASTRODUODENOSCOPY 2 Hepatology Tyrell Rodriguez M.D. [address] [place] [phone] Scheduled Procedures Name Priority Associated Diagnoses Date/Time ESOPHAGOGASTRODUODENOSCOPY Cirrhosis Alc oholic (HCC) 03/20/2022 8:45 AM CODING CLERKS SUPERVISOR Hypertension Portal (HCC) Scheduled Referrals Name Type Priority Associated Diagnoses Order S [facility] Outpatient Referral Routine Cirrhosis Alcoholic Ordered: [...] (ABNORMAL) Dipstick, Urine (11/26/2021 6:59 AM CDT) [facility] Method Time Signature Hemoglobin, Trace (A) [...] [facility] - [address] [place], [place] [address] [facility] [place] [address] [address] pH, Urine (11/26/2021 6:59 AM CDT) [...] [facility] - [address] [place], [place] [address] [place], [place] [phone] [place] [address] Osmolality, Urine (11/26/2021 6:59 [...] [facility] - [address] [place], [place] [address] [facility] [address] [facility] [address] (ABNORMAL) Microscopic [...] M.S. LAB URINE ORDERABLES Performing Organization Address [facility] Phon e Number [facility] - [address] [place] [address] Laboratories-[address] Street Bacterial Culture, Aerobic + Susc, Urine (11/26/2021 6:59 AM CDT) [facility] [employer] Method Time Signature Urine Culture No growth 11/27/2021 DT after 1 day 8:35 AM CDT of incubation. Specimen Anatomical Collection Method Collection Time Receive d Time (Source) Location / / Volume Laterality Urine (Urine, 11/26/2021 6:59 AM 11/27/19 22 7:31 Midstream) CDT AM CDT Comment: Specimen Source Site: Urine Gerard Andino M.D., M.S. LAB MICROBIOLOGY - GENERAL O RDERABLES Performing Organization Address City/[facility] [address] Laboratories-[address] (ABNORMAL) Urinalysis with Microscopic: Urine, Midstream [...] [facility] - [address] [place], [place] [address] [facility] [address] Laboratories-[facility] [address] Abdomen [...] LAB BLOOD ADD-ON Performing Organization Address [facility] Phon e Number [facility] - [address] Magnesium (11/25/2021 6:55 AM CDT) P athologist Signature Magnesium, S 1.7 1.7 - 2.3 11/25/2021 DTL mg/dL 7:54 AM CDT Specimen Anatomical Collection Method Collection Time Receive d Time (Source) Location / / Volume Laterality Blood (Blood, 11/25/2021 6:55 AM 11/26/19 22 7:33 Venous) CDT AM CDT Dina Campa M.D. LAB BLOOD ADD-ON Performing Organization Address City/[facility] Phon e Number [facility] - [address] (ABNORMAL) Basic Metabolic Panel (11/25/2021 6:55 [...] 11/25/2021 DTL Black/ mL/min/BSA 7:54 AM CDT Dutch Comment: ----ADDITIONAL INFORMATION---- Estimated GFR calculated using [...] M.D. LAB BLOOD ADD-ON Performing Organization Address City/State/[facility] Code Phon e Number [facility] - [address] [place] [address] [facility] [place] [address] Laboratories-[facility] 200 [facility] (ABNORMAL) CBC with Differential, Blood (11/25/2021 6:55 AM CDT) [facility] Method Time Signature Hemoglobin 7.5 (L) [...] [facility] - [address] [place], [place] [address] [facility] [place] [address] Laboratories-[facility] 200 [facility] DX Abdomen Portable Anterior Posterior 1 [...] with Differential, Blood (11/24/2021 10:39 AM CDT) [facility] Method Time Signature Hemoglobin 8.4 (L) [...] [facility] - [address] [place], [place] [address] [facility] [address] Laboratories-[facility] 200 [facility] (ABNORMAL) Basic Metabolic Panel (11/23/2021 6:01 [...] 11/23/2021 DTL Black/ mL/min/BSA 8:52 AM CDT Dutch Comment: ----ADDITIONAL INFORMATION---- Estimated GFR calculated using [...] MEDICAL CENTER [facility] - [address] [place], [place] [address] [facility] [place] [address] Laboratories-[facility] [address] (ABNORMAL) CBC without Differential (11/23/2021 6:01 AM CDT) [facility] Method Time Signature Hemoglobin 7.3 (L) [...] Count 52 (L) 157 - 371 11/23/2021 PM x10(9)/L 8:56 AM CDT Leukocytes 7.3 3.4 - 9.6 11/23/2021 PM x10(9)/L 8:56 AM CDT Specimen Anatomical Collection Method Collection Time Receive d Time (Source) Location / / Volume Laterality Blood (Blood, 11/23/2021 6:01 AM 11/24/19 7:32 Venous) CDT AM CDT Gerard Andion M.D., M.S. LAB BLOOD ADD-ON Performing Organization Address City/[facility] Phon e Number [facility] - [address] [place] [address] Laboratories-[address] (ABNORMAL) Dipstick, Urine (11/21/2021 6:42 PM CDT) [facility] Method Time Signature Hemoglobin, Large (A) Negative [...] M.D. LAB URINE ORDERABLES Performing Organization Address [facility] Phon e Number [facility] - [address] [place] [address] [address] [place] [address] [facility] 200 [facility] Osmolality, Urine (11/21/2021 6:42 PM CDT) athologist Signature Osmolality, U 433 150 - 1150 11/21/2021 DTL mOsm/kg 7:58 PM CDT Specimen Anatomical Collection Method Collection Time Receive d Time (Source) Location / / Volume Laterality Urine 11/21/2021 6:42 PM 2 7:03 CDT PM CDT Jovanna Bergeron M.D. LAB URINE ORDERABLES Performing Organization Address City/[facility]/ZIP [facility] Phon e Number [facility] - [address] [place], [place] [address] [place] [address] pH, Random, Urine (11/21/2021 6:42 PM CDT) athologist Signature pH, Random, U 6.5 4.5 - 8.0 11/21/2021 DTL 7:58 PM CDT Specimen Anatomical Collection Method Collection Time Receive d Time (Source) Location / / Volume Laterality Urine 11/21/2021 6:42 PM 2 7:03 CDT PM CDT Jovanna Bergeron M.D. LAB URINE ORDERABLES Performing Organization Address City/[facility]/ZIP [facility] Phon e Number [facility] - [address] [place], [place] [address] [place] [address] (ABNORMAL) Microscopic Manual (11/21/2021 6:42 PM [...] LAB URINE ORDERABLES Performing Organization Address City/[facility] Phon e Number [facility] - [address] [place], [place] [address] [facility] [place] [address] Laboratories-[address] (ABNORMAL) Urinalysis with Microscopic: Urine, Catheter (11/21/2021 6:42 PM CDT) [facility] gist Method Time Signature Source Urine, 11/21/2021 [...] M.D. LAB URINE ORDERABLES Performing Organization Address City/State/[facility] Code Phon e Number [facility] - [address] [place], [place] [address] [facility] [place] [address] Laboratories-[address] Bacterial Culture, Aerobic + Susc, Urine [...] GENERAL O RDERABLES Performing Organization Address City/[facility] Phon e Number [facility] - [address] [place], [place] [address] [facility] [place] [address] Laboratories-[facility] [address] [facility] (ABNORMAL) SPSMA Result (11/21/2021 11:25 AM CDT) [...] LAB BLOOD ADD-ON Performing Organization Address City/[facility] Phon e Number [facility] - [address] [place], [place] [address] [place] [address] Laboratories-[facility] [address] Pernicious Anemia Bertie (11/21/2021 11:25 AM CDT) athologist [facility] Vitamin B12 621 180 - 914 11/21/2021 [facility] Assay, S ng/L 6:21 PM CDT Specimen Anatomical Collection Method Collection Time Receive d Time (Source) Location / / Volume Laterality Blood (Blood, 11/21/2021 11:25 11/21/2021 4:05 Venous) AM CDT PM CDT Dina Campa M.D. LAB BLOOD NON ADD-ON Performing Organization Address City/[facility]/ZIP Code Phon e Number [facility] [address] [place], [place] [address] [facility] [place] [address] Laboratory Medicine and Pathology [address] [place] (ABNORMAL) Cystatin C with Estimated GFR, S (11/21/2021 11:25 AM CDT) [facility] eGFR by 60 (L) >60 11/21/2021 DT [...] MEDICAL CENTER LABORATORIES - [address] [place], [place] [address] [facility] [place] [address] Laboratories-[facility] [address] [...] 11/21/2021 DTL Black/ mL/min/BSA 2:53 PM CDT Dutch Comment: ----ADDITIONAL INFORMATION---- Estimated GFR calculated using [...] Number [facility] - [address] [place] [address] [facility] [place] [address] Laboratories-[facility] [address] [facility] (ABNORMAL) CBC with Differential, Blood (11/21/2021 11:25 AM CDT) [facility] gist Method Time Signature Hemoglobin 8.4 [...] LAB BLOOD ADD-ON Performing Organization Address [facility]/ZIP [facility] Phon e Number [facility] - [address] [place], [place] [address] [place] [address] Laboratories-[facility] [address] Copper, 24 Hour, Urine (11/21/2021 11:00 AM CDT) athologist Signature Copper, 24 Hr, U 19 9 - 71 11/24/2021 SDS mcg/24 h 10:42 AM CDT Collection 24 h 11/24/2021 SDS Duration 10:42 AM CDT Volume 815 mL 11/24/2021 [facility] 10:42 AM CDT Comment: ----ADDITIONAL INFORMATION---- This test was developed and its performa nce characteristics determined by [facility] in a manner consistent with CLIA requirements. This test has not been cleared or approved by the [place] d and Drug Administration. Specimen Anatomical Collection Method Collection Time Receive d Time (Source) Location / / Volume Laterality Urine (Urine, 24 11/21/2021 11:00 022 3:36 Hours) AM CDT PM CDT Shannan Rand M.D. LAB URINE ORDERABLES Performing Organization Address City/[facility] Phon e Number [facility] [address] [place], [place] [address] [facility] [place] [address] Laboratory Medicine and Pathology [address] [...] at or the on-line test catalog at [employer] for m ore information. Specimen Anatomical Collection Method Collection Time Receive d Time (Source) Location / / Volume Laterality Blood (Blood, 11/20/2021 6:38 AM 11/21/19 8:33 Venous) CDT AM CDT Gerard Andino M.D., M.S. LAB BLOOD ADD-ON Performing Organization Address City/State/ZIP Code Phon e Number [facility] - [address] [place] [address] [place] [address] [place] [address] [facility] Ed-[address] DX Abdomen Portable Anterior Posterior 1 [...] Andino M.D., M.S. IMG DIAGNOSTIC IMAGING PROCE MAR Type and Screen (with reflex Antibody ID) (11/19/2021 2:55 PM CDT) [facility] gist Method Time Signature ABORh B Pos Not 11/19/2021 STRM applicable 3:49 PM CDT Antibody Negative Negative 11/19/2021 STRM Screen 4:03 PM CDT Type & Screen 11/22/2021 11/19/2021 STRM Expiration 23:59 3:49 PM CDT Testing [place] DEFAULT 11/19/2021 STRM Location 3:05 PM CDT Specimen Anatomical Collection Method Collection Time Receive d Time (Source) Location / / Volume Laterality Blood (Blood, 11/19/2021 2:55 PM 11/20/19 22 3:05 Venous) CDT PM CDT Gerard Andino M.D., M.S. LAB BLOOD BANK TEST ORDERABL ES Performing Organization Address City/[facility] Phon e Number [facility] - [address] [place] [address] [facility] STRM [address] Sedimentation Rate (11/19/2021 2:55 PM CDT) [...] [facility] - [address] [place], [place] [address] [facility] [place] [address] CRP (C-Reactive Protein) (11/19/2021 2:55 PM CDT) P athologist Signature C-Reactive 6.6 <=8.0 mg/L 11/19/2021 DTL Protein (CRP), 3:54 PM CDT S Specimen Anatomical Collection Method Collection Time Receive d Time (Source) Location / / Volume Laterality Blood (Blood, 11/19/2021 2:55 PM 11/20/19 22 3:29 Venous) CDT PM CDT Gerard Andino M.D., M.S. LAB BLOOD ADD-ON Performing Organization Address [facility] Phon e Number [facility] - [address] [place], [place] [address] [facility] [place] [address] Laboratories-[facility] 200 [facility] (ABNORMAL) CBC without Differential (11/19/2021 2:55 PM CDT) [facility] Method Time Signature Hemoglobin 8.7 (L) [...] LAB BLOOD ADD-ON Performing Organization Address City/[facility] Phon e Number [facility] - [address] [place], [place] [address] [facility] [place] [address] [facility] Ed-[facility] 200 [facility] Bacteria / Raudel Culture, Blood #2 (11/19/2021 12:59 PM CDT) [facility] Method Time Signature Bacteria/Adriana No growth [...] GENERAL O RDERABLES Performing Organization Address City/[facility]/ZIP [facility] Phon e Number [facility] - [address] [place], [place] [address] [place] [address] [facility] [address] Lactate, 3 hour draw (11/19/2021 12:45 PM CDT) P athologist Signature Lactate, P 1.3 0.5 - 2.2 11/19/2021 DTL mmol/L 2:16 PM CDT Specimen Anatomical Collection Method Collection Time Receive d Time (Source) Location / / Volume Laterality Blood (Blood, 11/19/2021 12:45 11/19/2021 1:46 Venous) PM CDT PM CDT Jovanna Bergeron M.D. LAB BLOOD NON ADD-ON Performing Organization Address City/[facility] Phon e Number [facility] - [address] [place], [place] [address] [place], [place] [address] [place] [address] Bacteria / Raudel Culture, [...] Bergeron M.D. LAB MICROBIOLOGY - GENERAL O JOSE Performing Organization Address City/[facility]/ZIP Code Phon e Number [facility] - [address] [place], [place] [address] [place] [address] [facility] [address] Phosphorus Inorganic (11/19/2021 7:13 AM CDT) P athologist Signature Phosphorus 2.9 2.5 - 4.5 11/19/2021 DTL (Inorganic), S mg/dL 8:33 AM CDT Specimen Anatomical Collection Method Collection Time Receive d Time (Source) Location / / Volume Laterality Blood (Blood, 11/19/2021 7:13 AM 11/20/19 8:09 Venous) CDT AM CDT Gerard Andino M.D., M.S. LAB BLOOD ADD-ON Performing Organization Address City/State/[facility] Phon e Number [facility] - [address] [place], [place] [address] [place] [address] Laboratories-[address] Magnesium (11/19/2021 7:13 AM CDT) athologist Signature Magnesium, S 1.8 1.7 - 2.3 11/19/2021 DTL mg/dL 8:33 AM CDT Specimen Anatomical Collection Method Collection Time Receive d Time (Source) Location / / Volume Laterality Blood (Blood, 11/19/2021 7:13 AM 11/20/19 8:09 Venous) CDT AM CDT Gerard Andino M.D., M.S. LAB BLOOD ADD-ON Performing Organization Address City/[facility] Phon e Number [facility] - [address] [place], [place] [address] [place], [place] [id number] [place] [address] (ABNORMAL) Hepatic Function Panel (11/19/2021 7:13 AM [...] [facility] - [address] [place], [place] [address] [facility] [place] [address] Laboratories-[facility] 200 [facility] (ABNORMAL) Basic Metabolic Panel (11/19/2021 7:13 [...] 11/19/2021 DTL Black/ mL/min/BSA 9:20 AM CDT Dutch Comment: ----ADDITIONAL INFORMATION---- Estimated GFR calculated using [...] M.S. LAB BLOOD ADD-ON Performing Organization Address City/State/[facility] Code Phon e Number [facility] - [address] [place] [address] [facility] [place] [address] Laboratories-[facility] 200 [facility] (ABNORMAL) CBC with Differential, Blood (11/19/2021 7:13 AM CDT) [facility] gist Method Time Signature Hemoglobin 7.6 [...] Number [facility] - [address] [place] [address] 05 [facility] [place] [address] Laboratories-[facility] 200 [facility] US Paracentesis with Imaging Guidance (11/18/2021 [...] 22 5:38 PM CDT PM CDT Narrative [facility] - 11/18/2021 10:50 PM CDT Bacterial Culture: Received Bactec aerob ic and Bactec anaerobic bottles Gerard Andino M.D. M.S. LAB MICROBIOLOGY - GENERAL O JOSE Performing Organization Address [facility] Phon e Number [facility] - [address] [place] [address] Bacterial Culture, Aerobic + Susc (11/18/2021 3:29 PM CDT) [facility] Method Time Signature Bacterial No growth 11/23/2021 DT Culture, after 5 7:47 AM CDT Aerobic + Susc days of incubation. Specimen (Source) Anatomical Collection Method Collection Time Re ceived Time Location / / Volume Laterality Peritoneal Fluid 11/18/2021 3:29 11/19/19 22 5:38 PM CDT PM CDT Narrative [facility] - 11/23/2021 7:47 AM CDT Bacterial Culture: Received Bactec aerob ic and Bactec anaerobic bottles Gerard Andino M.D., M.S. LAB MICROBIOLOGY - GENERAL O JOSE Performing Organization Address [facility] Phon e Number [facility] - [address] Cell Count and Differential, Body Fluid (11/18/2021 3:29 PM CDT) [facility] Method Time Signature Fluid Type Peritoneal- [...] performance characteri stics were determined by [facility] in a manner co nsistent with CLIA [...] [facility] [address] [place], [place] [address] [facility] [place] [address] [facility] [address] Phosphorus Inorganic [...] MEDICAL CENTER LABOR[facility] - [address] [place], [place] [address] [facility] [place] [address] Laboratories-[facility] [address] Magnesium (11/18/2021 8:56 AM [...] MEDICAL CENTER [facility] - [address] [place], [place] [address] [facility] [place] [address] Laboratories-[facility] [address] [...] 11/18/2021 DTL Black/ mL/min/BSA 12:18 PM CDT Dutch Comment: ----ADDITIONAL INFORMATION---- Estimated GFR calculated using [...] Number [facility] - [address] [place] [address] 05 [facility] [place] [address] Laboratories-[facility] 200 [facility] (ABNORMAL) CBC with Differential, Blood (11/18/2021 8:56 AM CDT) [facility] Method Time Signature Hemoglobin 9.7 (L) [...] MEDICAL CENTER [facility] - [address] [place], [place] [address] [facility] [place] [address] Laboratories-[facility] [address] EEG [...] Rodriguez M.D. NEUROLOGY ORDERABLES Performing Organization Address [facility] Phon e Number MMODAL MMODAL NA EEG [...] Rodriguez M.D. NEUROLOGY ORDERABLES Performing Organization Address [facility] Phon e Number MMODAL MMODAL NA DX [...] 11/16/2021 DTL Black/ mL/min/BSA 10:20 AM CDT Dutch Comment: ----ADDITIONAL INFORMATION---- Estimated GFR calculated using [...] MEDICAL CENTER [facility] - [address] [place], [place] [address] [facility] [place] [address] Laboratories-[facility] [address] (ABNORMAL) CBC with Differential, Blood (11/16/2021 7:11 AM CDT) [facility] gist Method Time Signature Hemoglobin 7.7 [...] Number [facility] - [address] [place] [address] [facility] [address] Laboratories-[facility] 200 [facility] MR Brain without IV Contrast (11/15/2021 1:07 [...] Drug Screen Urine (11/15/2021 11:15 AM CDT) [facility] Method Time Signature Ethanol, Negative NEGATIVE [...] M.S. LAB URINE ORDERABLES Performing Organization Address City/[facility] Phon e Number [facility] - [address] [place], [place] [address] [place], [place] [id number] [place] [address] (ABNORMAL) Ammonia (11/15/2021 6:14 AM CDT) athologist Signature Ammonia, P 31 (H) <=30 11/15/2021 DTL mcmol/L 7:00 AM CDT Specimen Anatomical Collection Method Collection Time Receive d Time (Source) Location / / Volume Laterality Blood (Blood, 11/15/2021 6:14 AM 11/16/19 6:36 Venous) CDT AM CDT Gerard Andino M.D., M.S. LAB BLOOD NON ADD-ON Performing Organization Address City/[facility]/ZIP [facility] Phon e Number [facility] - [address] [place], [place] [address] [facility] [place] [address] [facility] [address] Phosphorus Inorganic (11/15/2021 6:14 AM CDT) athologist Signature Phosphorus 2.5 2.5 - 4.5 11/15/2021 DTL (Inorganic), S mg/dL 7:16 AM CDT Specimen Anatomical Collection Method Collection Time Receive d Time (Source) Location / / Volume Laterality Blood (Blood, 11/15/2021 6:14 AM 11/16/19 7:02 Venous) CDT AM CDT Gerard Andino M.D., M.S. LAB BLOOD ADD-ON Performing Organization Address City/State/ZIP [facility] Phon e Number [facility] - [address] [place], [place] [address] [place] [address] [facility] [address] Magnesium (11/15/2021 6:14 AM CDT) P athologist Signature Magnesium, S 2.1 1.7 - 2.3 11/15/2021 DTL mg/dL 7:16 AM CDT Specimen Anatomical Collection Method Collection Time Receive d Time (Source) Location / / Volume Laterality Blood (Blood, 11/15/2021 6:14 AM 11/16/19 7:02 Venous) CDT AM CDT Gerard Andino M.D., M.S. LAB BLOOD ADD-ON Performing Organization Address [facility] Phon e Number [facility] - [address] [place], [place] [address] [facility] [place] [address] Laboratories-[facility] 200 [facility] (ABNORMAL) Hepatic Function Panel (11/15/2021 6:14 AM [...] M.S. LAB BLOOD ADD-ON Performing Organization Address [facility] Code Phon e Number [facility] - [address] [place] [address] [facility] [place] [address] [facility] 200 [facility] (ABNORMAL) Basic Metabolic Panel (11/15/2021 6:14 [...] 11/15/2021 DTL Black/ mL/min/BSA 10:03 AM CDT Dutch Comment: ----ADDITIONAL INFORMATION---- Estimated GFR calculated using [...] [facility] - [address] [place], [place] [address] [facility] [facility] [place] [address] Laboratories-[facility] 200 [facility] (ABNORMAL) CBC without Differential (11/15/2021 6:14 [...] [facility] - 200 [place], [place] [address] [facility] [address] [facility] Ed-[facility] 200 [facility] Phosphorus Inorganic (11/14/2021 9:00 PM CDT) P athologist Signature Phosphorus 2.6 2.5 - 4.5 11/14/2021 DTL (Inorganic), S mg/dL 10:55 PM CDT Specimen Anatomical Collection Method Collection Time Receive d Time (Source) Location / / Volume Laterality Blood (Blood, 11/14/2021 9:00 PM 11/15/19 9:46 Venous) CDT PM CDT Gerard Andino M.D., M.S. LAB BLOOD ADD-ON Performing Organization Address City/[facility]/ZIP Code Phon e Number [facility] - [address] [address] [facility] 200 [facility] Magnesium (11/14/2021 9:00 PM CDT) P athologist Signature Magnesium, S 1.8 1.7 - 2.3 11/14/2021 DTL mg/dL 10:55 PM CDT Specimen Anatomical Collection Method Collection Time Receive d Time (Source) Location / / Volume Laterality Blood (Blood, 11/14/2021 9:00 PM 11/15/19 9:46 Venous) CDT PM CDT Gerard Andino M.D., M.S. LAB BLOOD ADD-ON Performing Organization Address City/[facility]/ZIP Code Phon e Number [facility] - 200 [place] [id number] [address] Potassium (11/14/2021 9:00 PM CDT) P athologist Signature Potassium, S 4.1 3.6 - 5.2 11/14/2021 DTL mmol/L 10:55 PM CDT Specimen Anatomical Collection Method Collection Time Receive d Time (Source) Location / / Volume Laterality Blood (Blood, 11/14/2021 9:00 PM 11/15/19 9:46 Venous) CDT PM CDT Gerard Andino M.D., M.S. LAB BLOOD ADD-ON Performing Organization Address City/[facility]/ZIP Code Phon e Number [facility] - [address] (ABNORMAL) Hepatic Function Panel (11/14/2021 6:56 [...] M.S. LAB BLOOD ADD-ON Performing Organization Address City/State/[facility] Code Phon e Number [facility] - [address] [place] [address] [facility] [place] [address] [facility] 200 [facility] (ABNORMAL) Basic Metabolic Panel (11/14/2021 6:56 [...] 11/14/2021 DTL Black/ mL/min/BSA 9:14 AM CDT Dutch Comment: ----ADDITIONAL INFORMATION---- Estimated GFR calculated using [...] [facility] - 200 [place], [place] [address] [facility] [place] [address] [facility] 200 [facility] (ABNORMAL) CBC without Differential (11/14/2021 6:56 AM CDT) [facility] gist Method Time Signature Hemoglobin 9.1 [...] [facility] - 200 [place], [place] [address] [facility] [address] [facility] 200 [facility] SARS Coronavirus 2, Antigen, Rapid, V Asymptomatic (11/13/2021 9:45 AM CDT) [facility] Method Time Signature SARS CoV-2, Undetected [...] us ing the SARS-CoV-2 Ag Test from [employer], which has received Emergency U se Authorization (EUA) by the U.S. Food and Drug Administration. Fact sheets for this Emergency Use Autho rization (EUA) assay can be found at the following links: For Healthcare Providers: https://www.[employer]/assets/images/n ew/pdf/snp-itb-jgjw-wavbi-rcebyymt-s fks-xtu-0-ag-test.pdf?v=4 For Patients: https://www.[employer].9+/assets/images/n ew/pdf/wtd-wmzkcna-nkbp-sheet-lumira vr-ctbg-txa-2-mafnoxe-abza.pdf?v=5 SARS CoV-2, Antigen, Rapid, Swab, Nasopharynx 10/31 9:54 AM CDT [facility] Source Specimen Anatomical Collection Method Collection Time Receive d Time (Source) Location / / Volume Laterality Varies 11/13/2021 9:45 AM 9:54 (Nasopharynx) CDT AM CDT Gerard Andino M.D., M.S. LAB MICROBIOLOGY - GENERAL O RDERABLES Performing Organization Address City/[facility] Phon e Number [facility] - [address] [place], [place] [address] [facility] [place] [address] [facility] 200 [facility] (ABNORMAL) Hepatic Function Panel (11/13/2021 6:19 AM CDT) [facility] Method Time Signature Bilirubin, Total, S [...] LAB BLOOD ADD-ON Performing Organization Address City/[facility] Code Phon e Number [facility] - [address] [place], [place] [address] [facility] [place] [address] [facility] [address] [facility] (ABNORMAL) Basic Metabolic Panel (11/13/2021 6:19 AM [...] 11/13/2021 DTL Black/ mL/min/BSA 9:23 AM CDT Dutch Comment: ----ADDITIONAL INFORMATION---- Estimated GFR calculated using [...] [facility] - [address] [place], [place] [address] [facility] [place] [address] [facility] 200 [facility] (ABNORMAL) CBC without Differential (11/13/2021 6:19 AM CDT) [facility] gist Method Time Signature Hemoglobin 7.9 [...] Laterality Blood (Blood, 11/13/2021 6:19 AM 11/14/19 22 6:36 Venous) CDT AM CDT Gerard Andino M.D., M.S. LAB BLOOD ADD-ON Performing Organization Address City/State/ZIP Code Phon e Number [facility] - [address] [place], [place] [address] [facility] [address] Laboratories-[address] DX Abdomen Portable Anterior Posterior 1 [...] HEAD WITHOUT IV CONTRAST COMPARISON: Compared to [facility] head CT fro 03/21/2021. FINDINGS: Beam [...] HEAD WITHOUT IV CONTRAST COMPARISON: Compared to [facility] head CT fro 03/21/2021. FINDINGS: Beam [...] Rapid, V Symptomatic (11/12/2021 3:44 AM CDT) [facility] Method Time Signature SARS CoV-2, Detected (A) Undetected 11/12/2021 ST[facility] PCR, Rapid, V 4:20 AM CDT Comment: ----ADDITIONAL INFORMATION---- This RT-PCR test was performed using the Daniel SARS-CoV-2 and Influenza A/B Reagent assay from [employer], which has received Emergency Use Authori zation(EUA) by the U.S. Food and Drug Administration . Fact sheets for this Emergency Use Autho rization (EUA) assay can be found at the following link s: For Healthcare Providers: https://www.fda.gov/media/320294/downloa d For Patients: https://www.fda.gov/media/467454/downloa d SARS Coronavirus 2, Source, Rapid Swab, Nasopharynx 11/12/2021 3:48 AM CDT [facility] Specimen Anatomical Collection Method Collection Time Receive d Time (Source) Location / / Volume Laterality Varies 11/12/2021 3:44 AM 3:48 (Nasopharynx) CDT AM CDT Rosaura Sevilla M.D., M.P.H. LAB MICROBIOLOGY - GENERA L ORDERABLES Performing Organization Address City/State/ZIP Code Phon e Number [facility] - [address] [place], [place] [address] [place] [address] [facility] [address] Drug Screen Urine (11/12/2021 3:19 AM CDT) [facility] Method Time Signature Ethanol, Negative NEGATIVE [...] [facility]ENTER [facility] - [address] [place], [place] [address] [facility] [place] [address] [facility] [address] Peripheral Venous [...] Prothrombin Time (PT) (11/12/2021 1:54 AM CDT) [facility] gist Method Time Signature Prothrombin 37.4 [...] MEDICAL CENTER [facility] - [address] [place], [place] [address] [place] [address] [facility] [address] [...] LAB BLOOD ADD-ON Performing Organization Address City/[facility]/ZIP Code Phon e Number [facility] - [address] [place], [place] [address] [facility] [place] [address] [facility] [address] Ethanol Level, [...] MEDICAL CENTER LAB[facility] - [address] [place], [place] [address] [facility] [address] [facility] [address] S-TSH (Thyroid-Stimulating [...] [facility]ENTER [facility] - [address] [place], [place] [address] [facility] [address] [facility] [address] (ABNORMAL) [...] CDT eGFR-Black/Afri >90 >=60 11/12/2021 DTL can Dutch mL/min/BSA 3:01 AM CDT Comment: ----ADDITIONAL INFORMATION---- [...] MEDICAL CENTER [facility] - [address] [place], [place] [address] [facility] [place] [address] [facility] [address] [place] [address] [facility] [address] [...] Number [facility] - [address] [place] [address] [facility] [place] [address] Laboratories-[address] hCG (Human Chorionic Gonadotropin), Quantitative, (11/12/2021 [...] [facility] [address] [place], [place] [address] [facility] [place] [address] [facility] [address] [facility] (ABNORMAL) CBC with Differential, Blood (11/12/2021 1:54 AM CDT) [facility] Method Time Signature Hemoglobin 8.7 (L) [...] LAB BLOOD ADD-ON Performing Organization Address City/[facility]/ZIP Code Phon e Number [facility] - [address] [place], [place] [address] [facility] [place] [address] [facility] [address] [facility] [place] [address] [facility] [address] (ABNORMAL) Ammonia (11/12/2021 1:54 AM CDT) P athologist Signature Ammonia, P 38 (H) <=30 11/12/2021 DTL mcmol/L 2:52 AM CDT Specimen Anatomical Collection Method Collection Time Receive d Time (Source) Location / / Volume Laterality Blood (Blood, 11/12/2021 1:54 AM 11/13/19 2:09 Venous) CDT AM CDT Titi Oswald M.D. LAB BLOOD NON ADD-ON Performing Organization Address City/[facility]/ZIP Code Phon e Number [facility] - [address] [place], [place] [address] [facility] [place] [address] [facility] [address] Lactate, POCT (11/12/2021 1:54 AM CDT) Analysis Performed At Patho logist Time Signature Lactate, POCT Collected DEFAULT 11/12/2021 SMLX 1:54 AM CDT Specimen Anatomical Collection Method Collection Time Receive d Time (Source) Location / / Volume Laterality Blood (Blood, 11/12/2021 1:54 AM 11/13/19 22 1:54 Venous) CDT AM CDT Authorizing Provider Result Woodrow Oswald M.D. LAB POCT ORDERABLES - DEVICE Performing Organization Address City/[facility] Phon e Number [facility] - [address] [place], [place] [address] [facility] [place] [address] [facility] [address] Venous Blood [...] POCT ORDERABLES - DEVICE Performing Organization Address [facility] Phon e Number [facility] - 200 [place], [place] [address] [facility] [place] [address] [facility] 200 [facility] Lactate, POCT (11/12/2021 1:52 AM CDT) athologist Signature Lactate, POCT 2.19 0.50 - 11/12/2021 PCLX 2.20 2:04 AM CDT mmol/L Sample Site, Venstick 11/12/2021 PCLX POCT 2:04 AM CDT Specimen Anatomical Collection Method Collection Time Receive d Time (Source) Location / / Volume Laterality Blood 11/12/2021 1:52 AM 2 2:04 CDT AM CDT Unknown Provider LAB POCT ORDERABLES - DEVICE Performing Organization Address [facility] Phon e Number [facility] 200 [place] [address] [facility] [place] [address] [facility] 200 [facility] (ABNORMAL) Venous Blood Gas and Electrolytes [...] City/State/ZIP Code Phon e Number POC [facility] 200 [place], [place] [address] LABS [facility] [place] [address] [facility] [address] (ABNORMAL) CRP (C-Reactive [...] [facility]ICAL [facility]ENTER [facility] - [address] [place], [place] [address] [place] [address] [facility]-[place] [facility] [place] [address] documented in this encounter Visit Diagnoses Diagnosis Encephalopathy - Primary Change Mental Status Malaise (Concern For Covid-19) Encephalopathy Cirrhosis Alcoholic (HCC) Change Mental Status Cirrhosis Alcoholic (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 [...] Toribio RSumaN.) 0811 (Given - Provider: Deja Langford, R.N.) [...] 0549 (Given - Provider: Jo Ann Stevens RSumaN.) 0.2 mg, intravenous, Once, On Wed11/25/21 at 0545, For 1 dose HYDROmorphone tablet 1 mg (DILAUDID) (COMPLETED) 0811 (Given - Provider: Deja Langford R.N.) 1 mg, oral, Once, On Wed11/25/21 at 0800, For 1 dose lactulose solution 10 g (CHRONULAC) (CANCELED) 1013 (G iven - Provider: [place] Toribio RSumaN.) 10 g, gastric tube, 3 times daily, First dose (after last modification) on Wed11/18/21 at 2100 lactulose solution 10 g (CHRONULAC) 1506 (Not Given - Provider: [place] Toribio R.N. - Reason: Other - Comment: 6 bm's)2037 (Not Given - Provider: Jo Ann Stevens R.N. - Reason: Contraindicated) 0812 (Not Given - Provider: Deja Langford, R.NSuma - Reason: Contraindicated - Comment: bm goal met)1302 (Given - Provider: Deja Langford RSumaNSuma)212 (Given - Provider: Amy Zaragoza R.N.) 0924 [...] (Given - Provider: Jo Ann hanley R.N.) 40 mg, oral, Daily before breakfast, Fir st dose on Wed11/25/21 at 0700, Swallow whole. Do NOT crush, chew, or split tablet. rifAXIMin tablet 550 mg (XIFAXAN) 1020 (Given - Provid er: [place] Toribio R.N.)2038 (Given - Provider: Jo Ann Stevens R.N.) 0811 (Given - Provider: Deja Langford RSumaN.)212 (Given - Provider: Amy Zaragoza R.N.) 0924 (Given - Provider: Deja Langford RSumaNSuma) 550 mg, oral, 2 times daily, First dose on Wed11/24/21 at 1015, Indications: encephalopathy sodium chloride (PF) 0.9 % injection 1-100 mL (COMPLETED) 1021 (Given - Provider: Perri Mcintyre RSumaNSuma) 1-100 mL, intravenous, Once, On 11/25 at 1030, For 1 dose, Imaging Protocol Orders spironolactone tablet 100 mg (ALDACTONE) 1201 (Given - Provider: [place] Toribio RSumaNSuma) 0811 (Not Given - Provider: Deja son, [...] trujillo R.N.) 0950 (Given - Provider: Deja Shaikhrt, R.N.) 3,000 mcg, oral, 3 times [...] (Tristan iven - Provider: Deja Shaikhrt, R.N.) 220 mg, oral, Daily with breakfast, [...] contact. simethicone chewable tablet 80 mg (MYLICON) 3168 (Given - Provider: Jo Ann Stevens R.N.) 80 mg, oral, 4 times daily PRN, flatulence, Starting on 11/25 at 2316 documented in this encounter Additional Health Concerns Infection Onset Date Last Indicated Resolved Time COVID19 Pending 11/12/2021 11/12/2021 11/12/2021 4:20 AM CDT [id number]: Patients who are NOT sev erely immunocompromised: Asymptomatic - At least 10 days have passed since the date of the first positive PCR test 11/12/2021 11/12/2021 11/13/2021 3:19 PM CDT and Patient has remained asymptomatic throughout their infection Assessment Noted Time PHQ-9 Depression Total Score: 10 10/06/2021 5:00 PM CD T documented as of this encounter Care Teams Shipping Agent Relationship Specialty Start Date End Date Elsewhere, Pcp PCP - General Family Medicine 03/10/20 11/30/21 [facility] [place] [facility] 08/25/21 Ervin Schroeder MD Referring Provider Family Medicine 03/24/[address] [place] [phone] documented as of this encounter
--- OUTSIDE RECORDS SUMMARY | 2022-02-14 22:06 | XMS_ITS | Encounter Summary ---
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 - 11/18/2021 8:53 AM CDT Hi Christelle Reddingnifer is scheduled for an EGD with you on 11/24/21. She tested positive for covid on 11/09/21. Also, she is currently an inpatient in [place]. If you have concerns, please notify patient andscheduling. Thank you. documented in this encounter Plan of Treatment Upcoming Encounters Date Type Specialty Care Team Description Telemedicine Transplant 2 Appointment Radiology Matthew Jerome 2 YTyrell M.D. [address] [place] [phone] Appointment Gastroenterology and Adrianne, 2 Hepatology Yue Burciaga M.D. [address] [place] [phone] Virtual Visit Transplant Matthew Jerome 2 Tyrell Rodriguez M.D. [address] [place] [phone] Office Visit Gastroenterology and Matthew Jerome 2 Hepatology Tyrell Rodriguez M.D. [address] [place] [phone] Appointment Radiology LuisMatthew abdul 2 Tyrell Rodriguez M.D. [address] [place] [phone] Hospital Gastroenterology and Matthew Jerome Cirrhos is Alcoholic (HCC) 2 Encounter Hepatology Tyrell Rodriguez M.D. [address] [place] [phone] Anesthesia Event Gastroenterology and Rl, 2 Hepatology Ervin Burgos M.D. [address] [place] [phone] Surgery Gastroenterology and Matthew Jerome ESOPHAG OGASTRODUODENOSCOPY 2 Hepatology Tyrell Rodriguez, Lilian [address] [place] [phone] Scheduled Procedures Name Priority Associated Diagnoses Date/Time ESOPHAGOGASTRODUODENOSCOPY Cirrhosis Alc oholic (HCC) 03/20/2022 8:45 AM BALE STACKER Hypertension Portal (HCC) documented as of this encounter Visit Diagnoses Not on filedocumented in this encounter Additional Health Concerns Assessment Noted Time PHQ-9 Depression Total Score: 10 10/06/2021 5:00 PM CD T documented as of this encounter Care Teams Diamond Assorter Relationship Specialty Start Date End Date Elsewhere, Pcp PCP - General Family Medicine 03/10/20 11/30/21 [facility] 08/25/21 Ervin Schroeder MD Referring Provider Family Medicine 03/24/[address] [place] [phone] documented as of this encounter
--- OUTSIDE RECORDS SUMMARY | 2022-02-14 22:06 | XMS_ITS | Encounter Summary ---
:1990 Author Organization [facility] Address [address] [place] [address] Care Team Providers Name Role Phone Elsewhere, Pcp Primary Care Provider Unavailable Encounter Details Date Type Department Care Team Description 11/10/2021 Episode Changes [facility] Jack French, for Transplantation and [place] RSumaNSuma, Clinical Regeneration in [facility] [place], [place] [phone] [address] [facility] (Work) [place] [phone] Social History Tobacco Use Types Packs/Day [...] you attend pentecostalism or Patient refused 2021 latter day services? 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 [address] [place] [phone] Virtual Visit Transplant Matthew Jerome 2, M.B.B.S., M.D. [address] [place] [phone] Office Visit Gastroenterology and Matthew Jerome 2 Hepatology Tyrell Rodriguez, Lilian [address] [place] [phone] Appointment Radiology Akchantell Matthew 2 YTyrell, Lilian [address] [place] [phone] Hospital Gastroenterology and [facility] Cirrhos is Alcoholic (HCC) 2 Encounter Hepatology Tyrell Rodriguez, Lilian [address] [place] [phone] Anesthesia Event Gastroenterology and Rl, 2 Hepatology Ervin Burgos M.D. [address] [place] [phone] Surgery Gastroenterology and [facility] ESOPHAG OGASTRODUODENOSCOPY 2 Hepatology Tyrell Rodriguez M.D. [address] [place] [phone] Scheduled Procedures Name Priority Associated Diagnoses Date/Time ESOPHAGOGASTRODUODENOSCOPY Cirrhosis Alc oholic (HCC) 03/20/2022 8:45 AM MATH SPECIALIST Hypertension Portal (HCC) documented as of this encounter Visit Diagnoses Not on filedocumented in this encounter Additional Health Concerns Assessment Noted Time PHQ-9 Depression Total Score: 10 10/06/2021 5:00 PM CD T documented as of this encounter Care Teams Counterperson Relationship Specialty Start Date End Date Elsewhere, Pcp PCP - General Family Medicine 03/10/20 11/30/21 [facility] 08/25/21 Ervin Schroeder MD Referring Provider Family Medicine 03/24/[address] [place] [phone] documented as of this encounter
--- OUTSIDE RECORDS SUMMARY | 2022-02-14 22:06 | XMS_ITS | Encounter Summary ---
:1990 Author Organization [facility] Address [address] [place] [address] Care Team Providers Name Role Phone Elsewhere, Pcp Primary Care Provider Unavailable Reason for Visit Reason Comments Vitamin K Encounter Details Date Type Department Care Team Description 10/31/2021 Clinical Communication [facility] PRE/POS T Alina Carranza, Vitamin K [address] [place] [address] [phone] Social History Tobacco Use Types Packs/Day Years [...] you attend zoroastrian or Patient refused 2021 evangelical services? Do [...] at Date Recorded Female 04/12/2021 7:39 PM FOUR H AGENT documented as of this encounter Miscellaneous Notes Telephone Encounter - Faviola Hernandez R.N. - 10/31/2021 4:22 PM CDT This underwriter solicitation director contacted [facility] in [facility], spoke to Perri. Prescription for Vitamin K was received and has not been entered. Perri stated prescription will be ready and patient will be notified by pharmacy via notification system. This underwriter solicitation director sent patient a message via portal. Telephone [...] Transplant 2 Appointment Radiology LuisNew abdular 2 Jsohua RodriguezBSumaBGraeme, Lilian [address] [place] [address] [phone] Appointment Gastroenterology demian Silver 2 Hepatology Yue Burcaiga M.D. [address] [place] [phone] Virtual Visit Transplant [place] Jeromear 2 Joshua RodriguezB.B.Kath, Lilian [address] [place] [phone] Office Visit Gastroenterology and LuisMatthew abdul 2 Hepatology Joshua RodriguezB.B.SLilian Moise [address] [place] [phone] Appointment Radiology LuisNew abdular 2 YJoshuaB.B.SSuma, Lilian [address] [place] [phone] Hospital Gastroenterology and LuisMatthew abdul Cirrhos is Alcoholic (HCC) 2 Encounter Hepatology Elizabeth Rodriguez.B.B.SLilian Moise [address] [place] [phone] Anesthesia Event Gastroenterology and Rl, 2 Hepatology Ervin Burgos M.D. [address] [place] [address] [phone] Surgery Gastroenterology and Mousa, Matthew ESOPHAG OGASTRODUODENOSCOPY 2 Hepatology Tyrell Rodriguez M.D. [address] [place] [phone] Scheduled Procedures Name Priority Associated Diagnoses Date/Time ESOPHAGOGASTRODUODENOSCOPY Cirrhosis Alc oholic (HCC) 03/20/2022 8:45 AM FOUR H AGENT Hypertension Portal (HCC) documented as of this encounter Visit Diagnoses Not on filedocumented in this encounter Additional Health Concerns Assessment Noted Time PHQ-9 Depression Total Score: 10 10/06/2021 5:00 PM CD T documented as of this encounter Care Teams Orthopedically Impaired Teacher Relationship Specialty Start Date End Date Elsewhere, Pcp PCP - General Family Medicine 03/10/20 11/30/21 [facility] [place] [facility] 08/25/21 Ervin Schroeder MD Referring Provider Family Medicine 03/24/[address] [place] [address] documented as of this encounter
--- OUTSIDE RECORDS SUMMARY | 2022-02-14 22:06 | XMS_ITS | Encounter Summary ---
:1990 Author Organization [facility] Address [address] [place] [address] Care Team Providers Name Role Phone Elsewhere, Pcp Primary Care Provider Unavailable Encounter Details Date Type Department Care Team Description 10/31/2021 Orders Only Department of Mousa, Matthew Y, Cirrhosis Al coholic ([facility]) (Primary Dx); Gastroenterology in Joshua Santillan. Defect Coagulation (HCC) [place], [place] 1025 [facility] [address] [place] [address] [phone] Social History Tobacco Use Types Packs/Day Years [...] you attend christianity or Patient refused 2021 tenriism services? 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 [address] [place] [phone] Virtual Visit Transplant Matthew Jerome 2 Y, Tyrell, Lilian [address] [place] [phone] Office Visit Gastroenterology and Matthew Jerome 2 Hepatology Tyrell Rodriguez M.D. [address] [place] [phone] Appointment Radiology Matthew Jerome 2 YTyrell M.D. [address] [place] [phone] Hospital Gastroenterology and Queenie Matthew Cirrhos is Alcoholic (HCC) 2 Encounter Hepatology Tyrell Rodriguez M.D. [address] [place] [phone] Anesthesia Event Gastroenterology and Rl, 2 Hepatology Ervin Burgos M.D. [address] [place] [address] [phone] Surgery Gastroenterology and Queenie Matthew ESOPHAG OGASTRODUODENOSCOPY 2 Hepatology Tyrell Rodriguez M.D. [address] [place] [address] [phone] Scheduled Procedures Name Priority Associated Diagnoses Date/Time ESOPHAGOGASTRODUODENOSCOPY Cirrhosis Alc oholic (HCC) 03/20/2022 8:45 AM OFFICE MACHINES SALES REPRESENTATIVE Hypertension Portal (HCC) documented as of this encounter Visit Diagnoses Diagnosis Cirrhosis Alcoholic (HCC) - Primary Defect Coagulation (HCC) Cirrhosis Alcoholic (HCC) Cirrhosis Alcoholic (HCC) Hypertension Portal (HCC) documented in this encounter Additional Health Concerns Assessment Noted Time PHQ-9 Depression Total Score: 10 10/06/2021 5:00 PM CD T documented as of this encounter Care Teams Political Reporter Relationship Specialty Start Date End Date Elsewhere, Pcp PCP - General Family Medicine 03/10/20 11/30/21 [facility] 08/25/21 Ervin Schroeder MD Referring Provider Family Medicine 03/24/211979 [address] [place] [address] documented as of this encounter
--- OUTSIDE RECORDS SUMMARY | 2022-02-14 22:07 | XMS_ITS | Encounter Summary ---
:1990 Author Organization [facility] Address [address] [place] [address] Care Team Providers Name Role Phone Elsewhere, Pcp Primary Care Provider Unavailable Encounter Details Date Type Department Care Team Description 10/07/2021 Hospital Encounter Department of Rut Hernández s Alcoholic (HCC); Pulmonary Medicine Warren Schaefer M.D., Abnorm al Liver Function Test; in [facility]; [place] [address] [place] [address] Pretransplant Recipient Evaluation Exam; [address] [place], [place] Preoperative Exam [place], [place] [phone] Social History Tobacco Use Types Packs/Day [...] you attend scientologist or Patient refused 2021 taoist services? Do you belong to any clubs or No 02/10/2022 organizations such as scientologist groups, unions, fraKnottykart or athletic groups, or school groups? 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 [address] [place] [phone] Virtual Visit Transplant Queenie Matthew 2 Joshua RodriguezBSumaBLilian Bedolla [address] [place] [phone] Office Visit Gastroenterology and Matthew Jerome 2 Hepatology Joshua RodriguezBSumaBLilian Bedolla [address] [place] [address] [phone] Appointment Radiology [facility] 2 Tyrell Rodriguez M.D. [address] [place] [phone] Hospital Gastroenterology and [facility] Cirrhos is Alcoholic (HCC) 2 Encounter Hepatology Tyrell Rodriguez M.D. [address] [place] [phone] Anesthesia Event Gastroenterology and Rl, 2 Hepatology Ervin Burgos M.D. [address] [place] [address] [phone] Surgery Gastroenterology and [facility] ESOPHAG OGASTRODUODENOSCOPY 2 Hepatology Tyrell Rodriguez M.D. [address] [place] [address] [phone] Scheduled Procedures Name Priority Associated Diagnoses Date/Time ESOPHAGOGASTRODUODENOSCOPY Cirrhosis Alc oholic (HCC) 03/20/2022 8:45 AM CORK WIRER Hypertension Portal (HCC) documented as of this [...] CDT) P athologist Signature FVC 4.04 L [facility] SU[address] FVC% 111 % [facility] FVCLLN 2.88 L [facility] SUITE FEV1 3.62 L [facility] FEV1% 118 % [facility] [id number] 2.45 L [facility] FEV1/FVC 90 % [facility] SU[address] FEV1/FVCLLN 73 % [facility] FEF 25-75 5.30 L/sec [place] [facility] SU[address] HTR01-85% 154 % [place] [facility] SU[address] [id number] 2.20 L/sec [place] [facility] SU[address] SVC 4.19 L [place] [facility] SU[address] RV 1.17 L [place] [facility] SU[address] RVULN 2.33 L [facility] SUITE TLC 5.36 L [facility] SUITE TLC% 111 % [place] [facility] SUITE TLCLLN 3.47 L [facility] SUITE RV/TLC 22 % [place] [facility] SU[address] RV/TLC% 72 % [place] [facility] SU[address] RV/TLCuln 44 % [place] [facility] SUITE DLCO 16.63 ml/min/mmHg [place] [facility] SU[address] DLCO% 77 % [place] [facility] SUITE DLCOlln 15.76 ml/min/mmHg [facility] SUITE DLCOc 20.09 ml/min/mmHg [facility] SUITE DLCOc% 94 % [place] [facility] SU[address] VA 5.32 L [facility] SUITE VA% 115 % [facility] SUITE VAlln 3.76 L [facility] SUITE Height 159.00 [facility] SUITE Weight in Kg 59.70 [facility] SU[facility] BMI 23.6 [facility] SUITE Specimen (Source) Anatomical Collection Method Collection Time Re ceived Time Location / / Volume Laterality 10/07/2021 2:32 PM CDT Impressions [facility] - 10/10/2021 8:25 AM C DT [...] Organization Address City/State/ZIP Code Phon e Number [facility] SU[address] [facility] [address] documented in this encounter Visit Diagnoses Diagnosis Cirrhosis Alcoholic (HCC) Abnormal Liver Function Test [facility] Pretransplant Recipient Evaluation Exam Preoperative Exam Cirrhosis Alcoholic (HCC) Cirrhosis Alcoholic (HCC) Hypertension Portal (HCC) documented in this encounter Additional Health Concerns Assessment Noted Time PHQ-9 Depression Total Score: 10 10/06/2021 5:00 PM CD T documented as of this encounter Care Teams Call Center Operations Manager Relationship Specialty Start Date End Date Elsewhere, Pcp PCP - General Family Medicine 03/10/20 11/30/21 [facility] [place] [facility] 08/25/21 Ervin Schroeder MD Referring Provider Family Medicine 03/24/[address] [place] [address] documented as of this encounter
--- OUTSIDE RECORDS SUMMARY | 2022-02-14 22:07 | XMS_ITS | Encounter Summary ---
:1990 Author Organization [facility] Address [address] [place] [address] Care Team Providers Name Role Phone Elsewhere, Pcp Primary Care Provider Unavailable Reason for Visit Reason Comments Appointment [facility] FA Encounter Details Date Type Department Care Team Description 10/10/2021 Clinical Ramirez Barajas, Camron coreas ([facility] Communication Center for PRANEETH Rowland) Transplantation and Lilian, Ph.D. Clinical [facility] [address] in [facility] [address] [facility] [phone] Social History Tobacco Use Types Packs/Day Years [...] How often do you attend catholic or Patient refused 2021 yazidism services? 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 [address] [place] [phone] Virtual Visit Transplant Matthew Jerome 2 Tyrell Rodriguez, Lilian [address] [place] [phone] Office Visit Gastroenterology and Tnchantell Matthew 2 Hepatology Tyrell Rodriguez M.D. [address] [place] [phone] Appointment Radiology Matthew Jerome 2 Tyrell Rodriguez M.D. [address] [place] [phone] Hospital Gastroenterology and [facility] Cirrhos is Alcoholic (HCC) 2 Encounter Hepatology Tyrell Rodriguez M.D. [address] [place] [phone] Anesthesia Event Gastroenterology and Rl, 2 Hepatology Ervin Burgos M.D. [address] [place] [phone] Surgery Gastroenterology and Tnchantell Matthew ESOPHAG OGASTRODUODENOSCOPY 2 Hepatology Vik RodriguezBGraeme, Lilian [address] [place] [phone] Scheduled Procedures Name Priority Associated Diagnoses Date/Time ESOPHAGOGASTRODUODENOSCOPY Cirrhosis Alc oholic (HCC) 03/20/2022 8:45 AM PATHOLOGY LABORATORY AIDE Hypertension Portal (HCC) documented as of this encounter Visit Diagnoses Not on filedocumented in this encounter Additional Health Concerns Assessment Noted Time PHQ-9 Depression Total Score: 10 10/06/2021 5:00 PM CD T documented as of this encounter Care Teams Cosmetic Sales Assistant Relationship Specialty Start Date End Date Elsewhere, Pcp PCP - General Family Medicine 03/10/20 11/30/21 [facility] [place] [facility] 08/25/21 Ervin Schroeder MD Referring Provider Family Medicine 03/24/[address] [place] [address] documented as of this encounter
--- OUTSIDE RECORDS SUMMARY | 2022-02-14 22:07 | XMS_ITS | Encounter Summary ---
:1990 Author Organization [facility] Address [address] [place] [address] Care Team Providers Name Role Phone Elsewhere, Pcp Primary Care Provider Unavailable Reason for Visit Reason Comments Edema Encounter Details Date Type Department Care Team Description 10/13/2021 Nurse Triage [facility] Department of Nola Polanco R .N. [facility] Family Medicine and Residency in [place], [place] [address] [place] [phone] Social History Tobacco Use Types Packs/Day [...] How often do you attend rastafarian or Patient refused 2021 orthodox services? 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 [address] [place] [address] [phone] Appointment Gastroenterology deiman Silver, 2 Hepatology Yue Burciaga M.D. [address] [place] [phone] Virtual Visit Transplant LuisMatthew abdul 2 Tyrell Rodriguez M.D. [address] [place] [address] [phone] Office Visit Gastroenterology and LuisMatthew abdul 2 Hepatology Tyrell Rodriguez M.D. [address] [place] [address] [phone] Appointment Radiology LuisMatthew abdul 2 YTyrell M.D. [address] [place] [phone] Hospital Gastroenterology and Matthew Jerome Cirrhos is Alcoholic (HCC) 2 Encounter Hepatology Tyrell Rodriguez M.D. [address] [place] [address] [phone] Anesthesia Event Gastroenterology and Rl, 2 Hepatology Ervin Burgos M.D. [address] [place] [phone] Surgery Gastroenterology and Mousa, Matthew ESOPHAG OGASTRODUODENOSCOPY 2 Hepatology Tyrell Rodriguez M.D. [address] [place] [phone] Scheduled Procedures Name Priority Associated Diagnoses Date/Time ESOPHAGOGASTRODUODENOSCOPY Cirrhosis Alc oholic (HCC) 03/20/2022 8:45 AM INDUSTRIAL ECOLOGY TECHNICIAN Hypertension Portal (HCC) documented as of this encounter Visit Diagnoses Not on filedocumented in this encounter Additional Health Concerns Assessment Noted Time PHQ-9 Depression Total Score: 10 10/06/2021 5:00 PM CD T documented as of this encounter Care Teams Children'S Choir Director Relationship Specialty Start Date End Date Elsewhere, Pcp PCP - General Family Medicine 03/10/20 11/30/21 [facility] [place] [facility] 08/25/21 Ervin Schroeder MD Referring Provider Family Medicine 03/24/[address] [place] [address] documented as of this encounter
--- OUTSIDE RECORDS SUMMARY | 2022-02-14 22:07 | XMS_ITS | Encounter Summary ---
:1990 Author Organization [facility] Address [address] [place] [address] Care Team Providers Name Role Phone Elsewhere, Pcp Primary Care Provider Unavailable Reason for Visit Reason Comments Nicotine Dependence Outpatient (Routine) - Closed Specialty Diagnoses / Procedures Referred By Contact Refer red To Contact Nicotine Dependence Jessy Crain M.A., C.T.T.S. [address] [place] [address] Referral ID Status Reason Start Date Expiration Date Visits Requ ested Visits Authorized [id number] Closed 10/01/2021 10/01/2022 1 1 Encounter Details Date Type Department Care Team Description 10/27/2021 Telemedicine Department of Yehuda Crain Dep endence Nicotine Dependence, Jessy Gannon M.A., Dylan arelars (Primary [facility] Building, in C.T.T.S. Dx) [place], [place] [address] [facility] [address] [place] [phone] Social History Tobacco Use Types Packs/Day Years [...] you attend yarsanism or Patient refused 2021 religion services? 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 - 10/27/2021 9:00 AM CDT Follow-up visit conducted via real-time audio/video technology by Jessy Crain M.A., C.T.T.S. in [place], [place] at [facility] to the patient at home. [...] Radiology Matthew Jerome 2 YTyrell, Lilian [address] [place] [address] [phone] Appointment Gastroenterology and Adrianne, 2 Hepatology Yue Burciaga M.D. [address] [place] [phone] Virtual Visit Transplant Matthew Jerome 2 YTyrell M.D. [address] [place] [phone] Office Visit Gastroenterology and Matthew Jerome 2 Hepatology Tyrell Rodriguez M.D. [address] [place] [phone] Appointment Radiology Luischantell Matthew 2 YTyrell M.D. [address] [place] [phone] Hospital Gastroenterology and Njchantell Matthew Cirrhos is Alcoholic (HCC) 2 Encounter Hepatology Tyrell Rodriguez M.D. [address] [place] [phone] Anesthesia Event Gastroenterology and Rl, 2 Hepatology Ervin Burgos M.D. [address] [place] [address] [phone] Surgery Gastroenterology and Queenie Matthew ESOPHAG OGASTRODUODENOSCOPY 2 Hepatology Tyrell Rodriguez M.D. [address] [place] [phone] Scheduled Procedures Name Priority Associated Diagnoses Date/Time ESOPHAGOGASTRODUODENOSCOPY Cirrhosis Alc oholic (HCC) 03/20/2022 8:45 AM CONFERENCE CENTER COORDINATOR Hypertension Portal (HCC) documented as of this encounter Visit Diagnoses Diagnosis Nicotine Dependence Cigarettes - Primary Cirrhosis Alcoholic (HCC) Cirrhosis Alcoholic (HCC) Hypertension Portal (HCC) documented in this encounter Additional Health Concerns Assessment Noted Time PHQ-9 Depression Total Score: 10 10/06/2021 5:00 PM CD T documented as of this encounter Care Teams Trainmaster Relationship Specialty Start Date End Date Elsewhere, Pcp PCP - General Family Medicine 03/10/20 11/30/21 [facility] [place] lab 08/25/21 Ervin Schroeder MD Referring Provider Family Medicine 03/24/[address] [place], [place] [phone] documented as of this encounter
--- OUTSIDE RECORDS SUMMARY | 2022-02-14 22:07 | XMS_ITS | Encounter Summary ---
:1990 Author Organization [facility] Address [address] [place] [address] Care Team Providers Name Role Phone Elsewhere, Pcp Primary Care Provider Unavailable Encounter Details Date Type Department Care Team Description 10/08/2021 Clinical Communication Department of [facility] in [place], [place] L.P.N. 1025 [facility] [address] [place] [address] [place], [place] [phone] Social History Tobacco Use Types Packs/Day [...] you attend muslim or Patient refused 2021 shinto services? 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 - 10/08/2021 10:18 AM CDT Patient called [...] Appointment Radiology Matthew Jerome 2 YTyrell, Lilian [address] [place] [phone] Appointment Gastroenterology and Adrianne, 2 Hepatology Yue Burciaga M.D. [address] [place] [phone] Virtual Visit Transplant LuisMatthew abdul 2 Tyrell Rodriguez M.D. [address] [place] [phone] Office Visit Gastroenterology and Matthew Jerome 2 Hepatology Tyrell Rodriguez M.D. [address] [place] [phone] Appointment Radiology LuisMatthew abdul 2 Tyrell Rodriguez M.D. [address] [place] [phone] Hospital Gastroenterology and Queenie Matthew Cirrhos is Alcoholic (HCC) 2 Encounter Hepatology Tyrell Rodriguez M.D. [address] [place] [phone] Anesthesia Event Gastroenterology and Rl, 2 Hepatology Ervin Burgos M.D. [address] [place] [phone] Surgery Gastroenterology and Queenie Matthew ESOPHAG OGASTRODUODENOSCOPY 2 Hepatology Tyrell Rodriguez M.D. [address] [place] [phone] Scheduled Procedures Name Priority Associated Diagnoses Date/Time ESOPHAGOGASTRODUODENOSCOPY Cirrhosis Alc oholic (HCC) 03/20/2022 8:45 AM HOSPITAL UNIT CLERK Hypertension Portal (HCC) documented as of this encounter Visit Diagnoses Not on filedocumented in this encounter Additional Health Concerns Assessment Noted Time PHQ-9 Depression Total Score: 10 10/06/2021 5:00 PM CD T documented as of this encounter Care Teams Consumer Experience Consultant Relationship Specialty Start Date End Date Elsewhere, Pcp PCP - General Family Medicine 03/10/20 11/30/[address] [facility] 08/25/21 Ervin Schroeder MD Referring Provider Family Medicine 03/24/[address] [place] [address] documented as of this encounter
--- OUTSIDE RECORDS SUMMARY | 2022-02-14 22:07 | XMS_ITS | Encounter Summary ---
:[address] [facility] Address [address] [place] [address] Care Team Providers Name Role Phone Elsewhere, Pcp Primary Care Provider Unavailable Reason for Referral Outpatient (Routine) - Closed Specialty Diagnoses / Procedures Referred By Contact Refer red To Contact Diagnoses Cirrhosis Alcoholic (HCC) Abnormal Liver Function Test Ascites Pretransplant Recipient Evaluation Exam Preoperative Exam Warren Hernández M.D., [facility] [place] Procedures BMD Bone Density Spine Hips M.P.H. [address] [place] [address] Referral ID Status Reason Start Date Expiration Date Visits Requ ested Visits Authorized [id number] Closed 08/25/2021 08/25/2022 1 1 Reason for Visit Outpatient (Routine) - Closed Specialty Diagnoses / Procedures Referred By Contact Refer red To Contact Diagnoses Cirrhosis Alcoholic (HCC) Abnormal Liver Function Test Ascites Pretransplant Recipient Evaluation Exam Preoperative Exam Warren Hernández M.D., [facility] [place] Procedures BMD Bone Density Spine Hips M.P.H. [address] [place] [address] Referral ID Status Reason Start Date Expiration Date Visits Requ ested Visits Authorized [id number] Closed 08/25/2021 08/25/2022 1 1 Encounter Details Date Type Department Care Team Description 10/09/2021 Hospital Encounter Department of [place], Cirrhosi s Alcoholic (HCC); Radiology, Warren Schaefer M.D., Abnormal Angelica er Function Test; [facility], M.P.H. Ascites; in [place], [address] [place] [address] Pretransplant Recipient Evaluation Exam; [place], [place] Preoperative Exam [address] [address] [place] [phone] [place], [place] (Work) [phone] Social History Tobacco Use [...] you attend shinto or Patient refused 2021 spiritism services? 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 [address] [place] [phone] Virtual Visit Transplant Matthew Jerome 2 YTyrell M.D. [address] [place] [address] [phone] Office Visit Gastroenterology and LuisMatthew abdul 2 Hepatology Tyrell Rodriguez M.D. [address] [place] [phone] Appointment Radiology LuisMatthew abdul 2 YJoshuaBSumaBLilian Bedolla [address] [place] [address] [phone] Hospital Gastroenterology and LuisMatthew abdul Cirrhos is Alcoholic (HCC) 2 Encounter Hepatology Joshua RodriguezBLilian Staples [address] [place] [address] [phone] Anesthesia Event Gastroenterology and Rl, 2 Hepatology Ervin Burgos M.D. [address] [place] [phone] Surgery Gastroenterology and Mousa, Matthew ESOPHAG OGASTRODUODENOSCOPY 2 Hepatology Tyrell Rodriguez M.D. [address] [place] [phone] Scheduled Procedures Name Priority Associated Diagnoses Date/Time ESOPHAGOGASTRODUODENOSCOPY Cirrhosis Alc oholic (HCC) 03/20/2022 8:45 AM ENAMEL SHADER Hypertension Portal (HCC) documented as of this [...] Mineral Density (BMD) analysis perf ormed on [employer] with serial number [id number]. ? FINDINGS: Left Hip: Femur Neck: BMD [...] Mineral Density (BMD) analysis perf ormed on [employer] with serial number [id number]. FINDINGS: Left Hip: Femur Neck: BMD = [...] documented as of this encounter Care Teams Message Clerk Relationship Specialty Start Date End Date Elsewhere, Pcp PCP - General Family Medicine 03/10/20 11/30/21 [facility] [place] [facility] 08/25/21 Ervin Schroeder MD Referring Provider Family Medicine 03/24/[address] [place] [phone] documented as of this encounter
--- OUTSIDE RECORDS SUMMARY | 2022-02-14 22:07 | XMS_ITS | Encounter Summary ---
:1990 Author [address] [facility] Address [address] [place] [address] Care Team Providers Name Role Phone Elsewhere, Pcp Primary Care Provider Unavailable Reason for Visit Reason Comments External Lab Entry 10/25/2021 Encounter Details Date Type Department Care Team Description 10/28/2021 Clinical Ramirez Nguyen Transplant, Program Attendant al Lab Entry Communication Center for Coordinator, (10/25/2021/) Transplantation and R.N. Clinical Regeneration in [facility] well drill operator rotary drill [address] [place] [address] Social History Tobacco Use Types Packs/Day Years [...] you attend jew or Patient refused 2021 confucianist services? Do [...] or the highest technical, or vocational p [facility] degree you have received? 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 - 10/29/2021 1:45 PM CDT Noted Telephone Encounter - Matthew Jerome M.B.B.S., M.D. - 10/28/2021 11:36 PM CDT Thanks Laney I reviewed them, no further action is needed at this time. Matthew Telephone Encounter - Laney French M.A.N., R.N., C.C.TSumaC. - 10/28/2021 8:01 AM CDT Please review [...] C.CSumaTSumaC. *All labs are now found in [employer] - Lab - Flowsheets. For further review of labs, please review there or under Synopsis* documented in this encounter Plan of Treatment Upcoming Encounters Date Type Specialty Care Team Description Telemedicine Transplant 2 Appointment Radiology Matthew Jerome 2 YTyrell M.D. [address] [place] [phone] Appointment Gastroenterology and [facility], 2 Hepatology Yue Burciaga M.D. [address] [place] [phone] Virtual Visit Transplant LuisNew abdular 2 YTyrell M.D. [address] [place] [address] [phone] Office Visit Gastroenterology and Matthew Jerome 2 Hepatology Tyrell Rodriguez M.D. [address] [place] [address] [phone] Appointment Radiology Matthew Jerome 2 YTyrell M.D. [address] [place] [phone] Hospital Gastroenterology and [facility], Matthew Cirrhos is Alcoholic (HCC) 2 Encounter Hepatology Tyrell Rodriguez M.D. [address] [place] [address] [phone] Anesthesia Event Gastroenterology and Rl, 2 Hepatology Ervin Burgos M.D. [address] [place] [address] [phone] Surgery Gastroenterology and [facility] [place] ESOPHAG OGASTRODUODENOSCOPY 2 Hepatology Tyrell Rodriguez M.D. [address] [place] [address] [phone] Scheduled Procedures Name Priority Associated Diagnoses Date/Time ESOPHAGOGASTRODUODENOSCOPY Cirrhosis Alc oholic (HCC) 03/20/2022 8:45 AM CUPROUS CHLORIDE OPERATOR Hypertension Portal (HCC) documented as of this encounter Procedures Procedure Name Priority Date/Time Associated Diagnosis Comme nts EXTP Routine 10/25/2021 7:18 AM Results f or this TRANSPLANT/HEART - CDT procedure are in BLOOD, EX[facility]NAL LAB [facility]. documented in this encounter [...] documented as of this encounter Care Teams Program Director [employer] Relationship Specialty Start Date End Date Elsewhere, Pcp PCP - General Family Medicine 03/10/20 11/30/21 [facility] [place] lab 08/25/21 Ervin Schroeder MD Referring Provider Family Medicine 03/24/21 [address] [place] [address] documented as of this encounter
--- OUTSIDE RECORDS SUMMARY | 2022-02-14 22:07 | XMS_ITS | Encounter Summary ---
:1990 Author Organization [facility] Address [address] [place] [address] Care Team Providers Name Role Phone Elsewhere, Pcp Primary Care Provider Unavailable Reason for Referral Transplant (Routine) - Closed Specialty Diagnoses / Procedures Referred By Contact Refer red To Contact Transplant Surgery / Adeline Frazier [facility] Transplant Lilian Gannon, Ph.D. [address] [place] [phone] Referral ID Status Reason Start Date Expiration Date Visits Requ ested Visits Authorized [id number] Closed 10/10/2021 10/10/2022 1 1 Reason for Visit Transplant (Routine) - Closed Specialty Diagnoses / Procedures Referred By Contact Refer red To Contact Transplant Surgery / Diagnoses Cirrhosis Alcoholic (HCC) Abnormal Liver Function Test Ascites Pretransplant Recipient Evaluation Exam Preoperative Exam Warren Hernández [facility] Transplant Lilian, M.P.H. [address] [place] [address] Referral ID Status Reason Start Date Expiration Date Visits Requ ested Visits Authorized [id number] Closed 08/25/2021 08/25/2022 1 1 Encounter Details Date Type Department Care Team Description 10/10/2021 Telemedicine Warren Carter M.D., M.P.H. [address] [place], [place] [phone] Alcohol Moderate Or Severe Use Disorder (Dependence) Uncomplicated (HCC) (Primary Dx); Luis [facility] L[facility]. Cannabis Use Unspecified Uncomplicated; Transplantation and Long Ter m Use Of Opiate Analgesic; Clinical Regeneration in [place] otine Dependence Cigarettes; [place], [place] Mood Disorder (HCC); [address] [facility] Anxiety Disorder Unspecified ; [place] [phone] Eating Disorder; [phone] Hepatic Encepha lopathy Without Coma (HCC); Chronic [...] you attend yarsani or Patient refused 2021 baptist services? 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 - 10/10/2021 8:00 AM CDT Service Date: 10/10/21 DEMOGRAPHICS Patient: Catia Carias Date of : 1990 Age: 31 y.o. Gender: female Address: [address] [place] [phone] Referral source: Liver Transplant Team. Consult conducted via real-time audio/video technology by Dr. Marva Frazier and Zenobia Hollingsworth MA, [facility] in [facility] to the patient in patient's home. CIRCUMSTANCES OF SERVICE INITIATION / REASON FOR REFERRAL Pre-Liver transplant addiction psychiatry evaluation. HISTORY OF PRESENT ILLNESS Ms. Catia Bourgeois is??a very pleasant 31 y.o. partnered female under consideration for liver transplantation. The patient has a history of anxiety, depression, eating disorder and chronic pain. She was previously seen by Radhames Neumann, Ph.D., L.P. in [facility] (Pain Kati abilitation) on 10/06/2021 [...] in the past 30 days? No. OTHER Djbo-gty-Rvywfmp: No. Other: No. Compulsive behaviors: No history [...] visit. SOCIAL HISTORY provided by Joel Tan [facility], SUPPLY CHAIN ENGINEER Pager: [phone] note dated 09/29/2021. Today, the information below was reviewed, verified and updated with the patient. Family of Origin: Family of origin: The patient was raised in [place], [place]. Her parents when she was 20 years old. Her mother remarried. The patient calls her step- father, Siva, her bonus father. The patient's mother and step-father live in [place], [place]. The patient's father did not remarry. He lives in [place], [place], which is 10-12 minutes from the [...] Degree. The patient has her associates of [employer] degree in photography. Employment: Disabled: The patient was previously worked at [employer] in [place] until January 2021 when she became ill. History: No background. Spirituality / Sabianist / Culture: Describe spiritual beliefs: Patient does not identify with any baptist or spiritual beliefs. Cultural background: White [1] [...] by history; currently medicinal cannabis use #3 Wallpaperer Use Of Opiate Analgesic #4 Nicotine Dependence [...] management per Radhames Neumann, Ph.D., L.P. in [facility] (Pain Rehabilitation), 10/06/2021: - virtual [...] in the patient's local community and at [facility]. - A handout about accessing online recovery meetings such as AA, NA, for[MD], etc. - A set of forms to [...] of liver decompensation - inpatient hospitalization at [place] 03/2021; MELD-Na score: 32 at 09/30/2021 4. [...] records, discussing case with Zenobia Hollingsworth MA, [facility], documenting results of evaluation and treatment recommendations as well as counseling and coordination of care. Collateral information: Collateral information not needed at this time. Electronically signed by: Zenobia Hollingsworth M.A., Nathalie 10/10/21 documented in this encounter Plan of Treatment Upcoming Encounters Date Type Specialty Care Team Description Telemedicine Transplant 2 Appointment Radiology Matthew Jerome 2 YTyrell, Lilian [address] [place] [phone] Appointment Gastroenterology demian Silver, 2 Hepatology Yue Burciaga M.D. [address] [place] [phone] Virtual Visit Transplant Matthew Jerome 2 YJoshuaB.B.Lilian [place] [address] [place] [address] [phone] Office Visit Gastroenterology and Matthew Jerome 2 Hepatology YJoshuaB.BLilian Bedolla [address] [place] [address] [phone] Appointment Radiology Matthew Jerome 2 Y MSumaB.B.Lilian [place] [address] [place] [address] [phone] Hospital Gastroenterology and Matthew Jerome Cirrhos is Alcoholic (HCC) 2 Encounter Hepatology Joshua RodriguezB.BLilian Bedolla [address] [place] [address] [phone] Anesthesia Event Gastroenterology and Rl, 2 Hepatology Ervin Burgos M.D. [address] [place] [phone] Surgery Gastroenterology and Mousa, Matthew ESOPHAG OGASTRODUODENOSCOPY 2 Hepatology Tyrell Rodriguez M.D. 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 Hypertension Portal (HCC) Scheduled Referrals Name Type Priority Associated Order Schedule Diagnoses Transplant Liver Outpatient Referral Routine Expe cted: office visit 01/26/2022 (clinic) (Approximate), Expires: 01/10/2023 documented as of this encounter Results (ABNORMAL) Drug Abuse Survey with Confirmation, Urine (12/15/2021 5:58 PM CDT) [facility] Method Time Signature Alcohol Negative [...] Positive Cutoff: 50 ng/mL 12/16/2021 9:49 AM [facility] (A) CDT Comment: This immunoassay targets [...] Address City/State/ZIP Code Phon e Number [facility] [address] [place], [place] [address] [facility] [place] [address] Laboratory Medicine and Pathology [address] [place] Ethyl Glucuronide Confirmation, Random, Urine (12/15/2021 5:51 PM CDT) [facility] Method Time Signature Ethyl Glucuronide Negative Cutoff: 12/17/2021 [facility] Confirmation, U 250 ng/mL 10:34 AM CDT Ethyl Sulfate Negative Cutoff: 12/17[facility]2021 [facility] ng/mL 10:34 AM CDT Ethyl Gluc/Sulfate Negative. 12/17/2021 [facility] Interpretation 10:34 AM CDT Comment: ----ADDITIONAL INFORMATION---- This report is intended for use in clini ada monitoring and management of patients. ??It is not intended for use i n employment-related testing. This test was developed and its performa nce characteristics determined by [facility] in a manner consistent with CLIA requirements. [...] Address City/State/ZIP Code Phon e Number [facility] [address] [place], [place] [address] [facility] [facility] [place] [address] Laboratory Medicine and Pathology [address] [place] Phosphatidylethanol (Peth), whole blood- Sent Out Lab (12/15/2021 5:39 PM CDT) Component Value Ref Range Test Analysis Performed Pathologis t Method Time At Signature Phosphatidylethanol NEGATIVE NEGATIVE 12/26/2021 [facility] (PEth) ng/mL 1:01 PM CDT Comment: Analyzed compound: PEth 16:0/18:1. ? 2-avrwfejxk-7-jqfqrp-ey-scmxfij-3 -phosphoethanol. ? Analysis performed by Liquid Chromatogra [...] Organization Address City/State/ZIP Code Phon e Number [employer] [address], [place] [address] [place] [address] [address] [facility] documented in this encounter Visit Diagnoses Diagnosis Alcohol Moderate Or Severe Use Disorder (Dependence) Uncomplicated (HCC) - Primary Cannabis Use Unspecified Uncomplicated Wallpaperer Use Of Opiate Analgesic Nicotine Dependence Cigarettes [...] documented as of this encounter Care Teams Litigation Partner Relationship Specialty Start Date End Date Elsewhere, Pcp PCP - General Family Medicine 03/10/20 11/30/21 [facility] [place] lab 08/25/21 Ervin Schroeder MD Referring Provider Family Medicine 03/24/21 [facility] [address] [place] [address] documented as of this encounter
--- OUTSIDE RECORDS SUMMARY | 2022-02-14 22:07 | XMS_ITS | Encounter Summary ---
:[address] [facility] Address [address] [place] [address] Care Team Providers Name Role Phone Elsewhere, Pcp Primary Care Provider Unavailable Reason for Referral Behavioral Health (Routine) - Canceled Specialty Diagnoses / Procedures Referred By Contact Refer red To Contact Diagnoses Pain Leg Bilateral Radhames Neumann, [facility] Procedures Complex persistent pain program Ph.D., L.P. [address] [place] [phone] Referral ID Status Reason Start Date Expiration Date Visits V isits Requested Authorized [id number] Canceled 10/06/2021 10/06/2022 1 1 Reason for Visit Transplant (Routine) - Authorized Specialty Diagnoses / Procedures Referred By Contact Refer red To Contact Transplant Surgery / Diagnoses Cirrhosis Alcoholic (HCC) Abnormal Liver Function Test Ascites Pretransplant Recipient Evaluation Exam Preoperative Exam Warren Hernández, [facility] Transplant M.Jeri, M.P.H. [address] [place] [address] Referral ID Status Reason Start Date Expiration Date Visits V isisocrates Requested Authorized [id number] Authorized 08/25/2021 08/25/2022 1 1 Encounter Details Date Type Department Care Team Description 10/06/2021 Comprehensive Visit Warren Middleton M.D., M.P.H. [address] [place] [phone] Pain Leg Bilateral (Primary Dx); [facility] Radhames Neumann, Ph.D., L.P. [address] [place] [phone] Cirrhosis Alcoholic (HCC); Transplantation and Abnormal Liver Function Test; Clinical Regeneration Ascite s; in [place], Pretransplant Recipient Evaluation Exam; [place] Preoperative Exam [address] [place] [address] [phone] Social History Tobacco Use Types Packs/Day Years [...] you attend religious or Patient refused 2021 protestant services? 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 [...] at age 19 Overuse of prescribed or rhol-gtq-biymjyq medication: none. She notes she never runs [...] Appointment Radiology Matthew Jerome 2, M.B.B.S., Lilian [address] [place] [phone] Appointment Gastroenterology and [place], 2 Hepatology Yue Burciaga M.D. [address] [place] [phone] Virtual Visit Transplant Matthew Jerome 2, M.B.B.S., M.D. [address] [place] [phone] Office Visit Gastroenterology and Matthew Jerome 2 Hepatology Tyrell Rodriguez M.D. [address] [place] [phone] Appointment Radiology Matthew Jerome 2 YTyrell M.D. [address] [place] [phone] Hospital Gastroenterology and Matthew Jerome Cirrhos is Alcoholic (HCC) 2 Encounter Hepatology Tyrell Rodriguez M.D. [address] [place] [phone] Anesthesia Event Gastroenterology and Rl, 2 Hepatology Ervin Burgos M.D. [address] [place] [phone] Surgery Gastroenterology and Queenie Matthew ESOPHAG OGASTRODUODENOSCOPY 2 Hepatology Tyrell Rodriguez M.D. [address] [place] [phone] Scheduled Procedures Name Priority Associated Diagnoses Date/Time ESOPHAGOGASTRODUODENOSCOPY Cirrhosis Alc oholic (HCC) 03/20/2022 8:45 AM STEWARD/STEWARDESS TOURIST CLASS Hypertension Portal (HCC) documented as of this [...] documented as of this encounter Care Teams Shrimping Boat Captain Relationship Specialty Start Date End Date Elsewhere, Pcp PCP - General Family Medicine 03/10/20 11/30/21 [facility] [place] [facility] 08/25/21 Ervin Schroeder MD Referring Provider Family Medicine 11/22/[address] [place] [phone] documented as of this encounter
--- OUTSIDE RECORDS SUMMARY | 2022-02-14 22:07 | XMS_ITS | Encounter Summary ---
:1990 Author Organization [facility] Address [address] [place] [address] Care Team Providers Name Role Phone Elsewhere, Pcp Primary Care Provider Unavailable Reason for Referral Outpatient (Routine) - Closed Specialty Diagnoses / Referred By Contact Referred To Procedures Contact Gastroenterology and Diagnoses Cirrhosis Alcoholic (HCC) Hypertension Portal (HCC) Thrombocytopenia (HCC) Abnormal Liver Function Test Deficiency Vitamin A [facility] Hepatology Lilian Santillan [address] [place] [phone] Referral ID Status Reason Start Date Expiration Date Visits Requ ested Visits Authorized [id number] Closed 10/08/2021 10/08/2022 1 1 Scheduling Instructions 1 month follow up post transplant eval Reason for Visit Reason Comments Follow-up Outpatient (Routine) - Closed Specialty Diagnoses / Referred By Contact Referred To Procedures Contact Gastroenterology and Matthew [facility] Hepatology Lilian Santillan [address] [place] [address] Referral ID Status Reason Start Date Expiration Date Visits Requ ested Visits Authorized [id number] Closed 08/05/2021 08/05/2022 1 1 Encounter Details Date Type Department Care Team Description 10/08/2021 Office Visit Department of [place], Matthew Cirrhosis Alco holic (HCC) (Primary Dx); Gastroenterology in [place], Hyperten neptali Portal (HCC); [place], [place] Lilian Thrombocytopenia (HCC); [address] [facility] 1025 [facility] Abnormal Liver Function Test; [place] [address] [place], [place] Deficiency Vitamin A [phone] Social History Tobacco Use Types Packs/Day [...] you attend evangelical or Patient refused 2021 synagogue services? Do [...] or the highest technical, or vocational p [employer] degree you have received? 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 She states that she is transparent with the team and is willing to do anything requested that will help her get on the liver transplant list. We reviewed the recent consultation with surgery team, Cardiology, the social science analyst as well as the pain clinic. The [...] liver transplant evaluation with the team in [place], pending transplant psychiatry consultation. Unfortunately this was rescheduled until October 22, 2021. I will await her consultation before I present her case to the liver Transplant selection committee in [place], to evaluate her candidacy as a team. [...] PCP ?? #15 Newly diagnosed PFO with xxwth-[id number]-zhed atrial shunt: Echo done March 2020 # [...] OLAYINKA Trotter Gastroenterology, Hepatology and Transplant hepatology [facility] [place] documented in this encounter Plan of Treatment Upcoming Encounters Date Type Specialty Care Team Description Telemedicine Transplant 2 Appointment Radiology Matthew Jerome 2, M.B.B.S., M.D. [address] [place] [phone] Appointment Gastroenterology and Adrianne, 2 Hepatology Yue Burciaga M.D. [address] [place] [phone] Virtual Visit Transplant Matthew Jerome 2, M.B.B.S., M.D. [address] [place] [phone] Office Visit Gastroenterology and Matthew Jerome 2 Hepatology Tyrell Rodriguez M.D. [address] [place] [phone] Appointment Radiology Matthew Jerome 2, M.B.B.S., M.D. [address] [place] [address] [phone] Hospital Gastroenterology and Mousa, Matthew Cirrhos is Alcoholic (HCC) 2 Encounter Hepatology Tyrell Rodriguez M.D. [address] [place] [phone] Anesthesia Event Gastroenterology and Rl, 2 Hepatology Ervin Burgos M.D. [address] [place] [phone] Surgery Gastroenterology and Matthew Jerome ESOPHAG OGASTRODUODENOSCOPY 2 Hepatology Tyrell Rodriguez M.D. [address] [place] [phone] Scheduled Procedures Name Priority Associated Diagnoses Date/Time ESOPHAGOGASTRODUODENOSCOPY Cirrhosis Alc oholic (HCC) 03/20/2022 8:45 AM JEWELRY REPAIRER Hypertension Portal (HCC) Scheduled Referrals Name Type [...] e Number [facility]- [address] [place] [address] [place] [address] System in [place] [address] (ABNORMAL) Prothrombin Time (PT) [...] Phon e Number [facility]- [address] [place] [address] [place] [address] System in [place] [address] documented in this encounter Visit Diagnoses Diagnosis Cirrhosis Alcoholic (HCC) - Primary Hypertension Portal (HCC) Thrombocytopenia (HCC) Abnormal Liver Function Test Deficiency Vitamin A Cirrhosis Alcoholic (HCC) Cirrhosis Alcoholic (HCC) Hypertension Portal (HCC) documented in this encounter Additional Health Concerns Assessment Noted Time PHQ-9 Depression Total Score: 10 10/06/2021 5:00 PM CD T documented as of this encounter Care Teams Credit Portfolio Advisor Relationship Specialty Start Date End Date Elsewhere, Pcp PCP - General Family Medicine 03/10/20 11/30/21 [facility] [place] [facility] 08/25/21 Ervin Schroeder MD Referring Provider Family Medicine 03/24/211979 [address] [place] [address] documented as of this encounter
--- OUTSIDE RECORDS SUMMARY | 2022-02-14 22:07 | XMS_ITS | Encounter Summary ---
:1990 Author Organization [facility] Address [address] [place] [address] Care Team Providers Name Role Phone Elsewhere, Pcp Primary Care Provider Unavailable Reason for Visit Reason Comments Follow up on caregiver plan Encounter Details Date Type Department Care Team Description 10/20/2021 Clinical Ramirez Santana, Follow up on Communication Center for Joel Gannon, caregiver plan Transplantation and L.I.C.S.W., Clinical Regeneration M.S.W. in [place], [facility] [address] [place], [place] [address] [facility] [address] [place], [place] [phone] (Work) [phone] Social History Tobacco Use Types Packs/Day Years [...] you attend anabaptist or Patient refused 2021 zoroastrianism services? Do you belong to any clubs or No 02/10/2022 organizations such as anabaptist groups, unions, [employer] or athletic groups, or school groups? How [...] the highest technical, or vocational p [facility] degree you have received? 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 Radhames Neumann in [facility] Transplant Psychiatry (Pain Rehabilitation) - virtual Complex [...] called the patient on 10/17/2021 (cell phone: [phone]) to attempt to follow up on her [...] Telemedicine Transplant 2 Appointment Radiology QueenieNewar 2 YTyrell M.D. [address] [place] [phone] Appointment Gastroenterology and Adrianne, 2 Hepatology Yue Burciaga M.D. [address] [place] [phone] Virtual Visit Transplant LuisNew abdular 2 Tyrell Rodriguez M.D. [address] [place] [phone] Office Visit Gastroenterology and LuisNew abdular 2 Hepatology Tyrell Rodriguez M.D. [address] [place] [address] [phone] Appointment Radiology LuisNew abdular 2 YTyrell M.D. [address] [place] [phone] Hospital Gastroenterology and QueenieMatthew Cirrhos is Alcoholic (HCC) 2 Encounter Hepatology Tyrell Rodriguez M.D. [address] [place] [phone] Anesthesia Event Gastroenterology and Rl, 2 Hepatology Ervin Burgos M.D. [address] [place] [address] [phone] Surgery Gastroenterology and Mousa, Matthew ESOPHAG OGASTRODUODENOSCOPY 2 Hepatology Tyrell Rodriguez M.D. 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
--- OUTSIDE RECORDS SUMMARY | 2022-02-14 22:07 | XMS_ITS | Encounter Summary ---
:[address] [facility] Address [address] [place] [address] Care Team Providers Name Role Phone Elsewhere, Pcp Primary Care Provider Unavailable Reason for Visit Reason Comments Follow up on caregiver plan Encounter Details Date Type Department Care Team Description 10/17/2021 Clinical Ramirez Santana, Follow up on Communication Center for Joel Gannon, caregiver plan Transplantation and L.I.C.S.W., Clinical Regeneration M.S.W. in [place], [facility] [address] [place], [place] [address] [facility] [address] [place], [place] [phone] (Work) [phone] Social History Tobacco Use Types Packs/Day Years [...] you attend islam or Patient refused 2021 jainism services? Do you belong to any clubs or No 02/10/2022 organizations such as islam groups, unions, fraUSA Disc[employer]ters or athletic groups, or school groups? 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 ??in [place] Transplant Psychiatry (Pain Rehabilitation), 10/06/2021: - virtual [...] called the patient this afternoon (cell phone: [phone]) to attempt again follow up on her [...] Radiology LuisNew abdular 2 Tyrell Rodriguez M.D. [address] [place] [phone] Appointment Gastroenterology demian Silver 2 Hepatology Yue Burciaga M.D. [address] [place] [phone] Virtual Visit Transplant LuisMatthew abdul 2 Tyrell Rodriguez M.D. [address] [place] [address] [phone] Office Visit Gastroenterology and LuisMatthew abdul 2 Hepatology Tyrell Rodriguez M.D. [address] [place] [address] [phone] Appointment Radiology LuisNew abdular 2 Tyrell Rodriguez M.D. [address] [place] [address] [phone] Hospital Gastroenterology and LuisMatthew abdul Cirrhos is Alcoholic (HCC) 2 Encounter Hepatology Tyrell Rodriguez M.D. [address] [place] [address] [phone] Anesthesia Event Gastroenterology and Rl, 2 Hepatology Ervin Burgos M.D. [address] [place] [phone] Surgery Gastroenterology and Mousa, Matthew ESOPHAG OGASTRODUODENOSCOPY 2 Hepatology Tyrell Rodriguez M.D. [address] [place] [phone] Scheduled Procedures Name Priority Associated Diagnoses Date/Time ESOPHAGOGASTRODUODENOSCOPY Cirrhosis Alc oholic (HCC) 03/20/2022 8:45 AM CNC SUPERVISOR Hypertension Portal (HCC) documented as of this encounter Visit Diagnoses Not on filedocumented in this encounter Additional Health Concerns Assessment Noted Time PHQ-9 Depression Total Score: 10 10/06/2021 5:00 PM CD T documented as of this encounter Care Teams Signal Tower Operator Relationship Specialty Start Date End Date Elsewhere, Pcp PCP - General Family Medicine 03/10/20 11/30/21 [facility] [place] [facility] 08/25/21 Ervin Schroeder MD Referring Provider Family Medicine 03/24/[address] [place] [address] documented as of this encounter
--- OUTSIDE RECORDS SUMMARY | 2022-02-14 22:07 | XMS_ITS | Encounter Summary ---
:1990 Author Organization [facility] Address [address] [place] [address] Care Team Providers Name Role Phone Elsewhere, Pcp Primary Care Provider Unavailable Encounter Details Date Type Department Care Team Description 10/09/2021 Clinical Communication [facility] , Brigid Hudson, Transplantation and Lilian Clinical Regeneration in [address] [place] [address] [place] [phone] [place] [address] [phone] Social History Tobacco Use Types Packs/Day Years [...] you attend hinduism or Patient refused 2021 jehovah's witness services? 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 [address] [place] [phone] Virtual Visit Transplant Matthew Jerome 2 Tyrell Rodriguez M.D. [address] [place] [address] [phone] Office Visit Gastroenterology and Matthew Jerome 2 Hepatology Tyrell Rodriguez M.D. [address] [place] [phone] Appointment Radiology Matthew Jerome 2 YTyrell M.D. [address] [place] [phone] Hospital Gastroenterology and Matthew Jerome Cirrhos is Alcoholic (HCC) 2 Encounter Hepatology Tyrell Rodriguez M.D. [address] [place] [phone] Anesthesia Event Gastroenterology and Rl, 2 Hepatology Ervin Burgos M.D. [address] [place] [phone] Surgery Gastroenterology and Matthew Jerome ESOPHAG OGASTRODUODENOSCOPY 2 Hepatology Tyrell Rodriguez M.D. [address] [place] [phone] Scheduled Procedures Name Priority Associated Diagnoses Date/Time ESOPHAGOGASTRODUODENOSCOPY Cirrhosis Alc oholic (HCC) 03/20/2022 8:45 AM KNITTER OPERATOR Hypertension Portal (HCC) documented as of this encounter Visit Diagnoses Not on filedocumented in this encounter Additional Health Concerns Assessment Noted Time PHQ-9 Depression Total Score: 10 10/06/2021 5:00 PM CD T documented as of this encounter Care Teams Trap Operator Relationship Specialty Start Date End Date Elsewhere, Pcp PCP - General Family Medicine 03/10/20 11/30/21 [facility] [place] [facility] 08/25/21 Ervin Schroeder MD Referring Provider Family Medicine 03/24/[address] [place] [address] documented as of this encounter
--- OUTSIDE RECORDS SUMMARY | 2022-02-14 22:07 | XMS_ITS | Encounter Summary ---
:1990 Author Organization [facility] Address [address] [place] [address] Care Team Providers Name Role Phone Elsewhere, Pcp Primary Care Provider Unavailable Reason for Visit Reason Comments Fatigue Encounter Details Date Type Department Care Team Description 10/17/2021 Nurse Triage Department of Laura Flor, Fatigue Medicine, [facility], R.N. in [facility] pedro [address] [facility] [address] [place], [place] [phone] Social History Tobacco Use Types Packs/Day Years [...] you attend christian or Patient refused 2021 tenriism services? 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 - 10/17/2021 9:43 PM CDT Chief Complaint [...] PCP /SDC tomorrow, or could even call [facility] tomorrow to make appointment, patient states, [...] next 24 hours. Call your doctor (or TAPE MAKER/PA) when the office opens and make an [...] 3 days Protocols used: WEAKNESS (GENERALIZED) AND [id number] documented in this encounter Plan of Treatment Upcoming Encounters Date Type Specialty Care Team Description Telemedicine Transplant 2 Appointment Radiology Matthew Jerome 2, M.B.B.S., M.D. [address] [place] [phone] Appointment Gastroenterology and Adrianne, 2 Hepatology Yue Burciaga M.D. [address] [place] [phone] Virtual Visit Transplant Matthew Jerome 2 YTyrell M.D. [address] [place] [phone] Office Visit Gastroenterology and Matthew Jerome 2 Hepatology Tyrell Rodriguez M.D. [address] [place] [phone] Appointment Radiology LuisMatthew abdul 2 YTyrell M.D. [address] [place] [phone] Hospital Gastroenterology and Matthew Jerome Cirrhos is Alcoholic (HCC) 2 Encounter Hepatology Tyrell Rodriguez M.D. [address] [place] [phone] Anesthesia Event Gastroenterology and Rl, 2 Hepatology Ervin Burgos M.D. [address] [place] [address] [phone] Surgery Gastroenterology and Matthew Jerome ESOPHAG OGASTRODUODENOSCOPY 2 Hepatology Tyrell Rodriguez M.D. [address] [place] [address] [phone] Scheduled Procedures Name Priority Associated Diagnoses Date/Time ESOPHAGOGASTRODUODENOSCOPY Cirrhosis Alc oholic (HCC) 03/20/2022 8:45 AM CREDIT CARD ASSOCIATE Hypertension Portal (HCC) documented as of this encounter Visit Diagnoses Not on filedocumented in this encounter Additional Health Concerns Assessment Noted Time PHQ-9 Depression Total Score: 10 10/06/2021 5:00 PM CD T documented as of this encounter Care Teams Shell Plater Relationship Specialty Start Date End Date Elsewhere, Pcp PCP - General Family Medicine 03/10/20 11/30/21 [facility] 08/25/21 Ervin Schroeder MD Referring Provider Family Medicine 03/24/[address] [place] [address] documented as of this encounter
--- OUTSIDE RECORDS SUMMARY | 2022-02-14 22:07 | XMS_ITS | Encounter Summary ---
:1990 Author Organization [facility] Address [address] [place] [address] Care Team Providers Name Role Phone Elsewhere, Pcp Primary Care Provider Unavailable Encounter Details Date Type Department Care Team Description 10/15/2021 Documentation Department of Gastroenterology [place] in [place], Kaelyn Santillan M.D. 1025 [facility] [address] [place] [phone] [place], [place] [phone] Social History Tobacco Use Types Packs/Day [...] you attend scientologist or Patient refused 2021 yazdanism services? 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 PSC ? HCC ? HPS ? Budd Chiari ? FHF ? Biliary Atresia ? HCV ? PBC ? CCA ? PoPH ? Hemo-chromatosis ? PNF ? PFIC ? HBV ? AIH ? Neuro Endocrine Tumor ? FAP ? [id number] ? HAT ? Cystic Fibrosis ? MEJIA [...] on her own after a trip to [place] last July 2020, but could not remember why she decided to. Prior to that she had 4 episodes of recurrent pancreatitis. She states that the 1st illness she had was after a trip to [place] when she had abdominal pain and she [...] saline contrast injection. Patent foramen ovale with gbayp-[id number] shunt , 20 or greater bubbles seen [...] Appointment Radiology LuisNew abdular 2 YTyrell M.D. [address] [place] [phone] Appointment Gastroenterology demian Silver 2 Hepatology Yue Burciaga M.D. [address] [place] [phone] Virtual Visit Transplant LuisNew abdular 2 YTyrell M.D. [address] [place] [phone] Office Visit Gastroenterology and Matthew Jerome 2 Hepatology Tyrell Rodriguez M.D. [address] [place] [phone] Appointment Radiology LuisNew abdular 2 YTyrell M.D. [address] [place] [phone] Hospital Gastroenterology and Matthew Jerome Cirrhos is Alcoholic (HCC) 2 Encounter Hepatology Tyrell Rodriguez M.D. [address] [place] [phone] Anesthesia Event Gastroenterology and Rl, 2 Hepatology Ervin Burgos M.D. [address] [place] [address] [phone] Surgery Gastroenterology and Luischantell Matthew ESOPHAG OGASTRODUODENOSCOPY 2 Hepatology Tyrell Rodriguez M.D. 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
--- OUTSIDE RECORDS SUMMARY | 2022-02-14 22:07 | XMS_ITS | Encounter Summary ---
:1990 Author Organization [facility] Address [address] [place] [address] Care Team Providers Name Role Phone Elsewhere, Pcp Primary Care Provider Unavailable Reason for Visit Transplant (Routine) - Closed Specialty Diagnoses / Procedures Referred By Contact Refer red To Contact Transplant Surgery / Diagnoses Cirrhosis Alcoholic (HCC) Abnormal Liver Function Test Ascites Pretransplant Recipient Evaluation Exam [facility] Lilian[facility] M.P.H. [address] [place] [address] Referral ID Status Reason Start Date Expiration Date Visits Requ ested Visits Authorized [id number] Closed 08/25/2021 08/25/2022 1 1 Encounter Details Date Type Department Care Team Description 10/22/2021 Telemedicine Warren Carter M.D., M.P.H. [address] [place] [address] Moderate Or Severe Use Disorder (Depende nce) Alcohol Remission (HCC) (Primary Dx); Brigid Graham M.D. 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 - 10/22/2021 3:00 PM CDT DEMOGRAPHICS Catia Carias [address] [facility] 3 [facility] [phone] 31 y.o. REFERRAL SOURCE: Warren Hernández M.D., M.P.H. Consult conducted via real-time audio/video technology by Brigid Sales M.D. in [facility] to the patient in Patient's Home [...] time of this evaluation and reviewed the [facility] record. She has been seen by my [...] and Family: Twice a week ??? Attends Zoroastrianism Services: Never ??? Active Member of Clubs [...] service: No Occupational history: She worked at [employer] Marital/partner status: She has been with her boyfriend for 12 years. Children: No Zoroastrianism/spiritual: None reported. Support network: She is not [...] Appointment Radiology Matthew Jerome 2, M.B.B.S., M.D. [address] [place] [phone] Appointment Gastroenterology demian Silver, 2 Hepatology Yue Burciaga M.D. [address] [place] [phone] Virtual Visit Transplant Matthew Jerome 2 Tyrell Rodriguez M.D. [address] [place] [phone] Office Visit Gastroenterology and Matthew Jerome 2 Hepatology Tyrell Rodriguez M.D. [address] [place] [phone] Appointment Radiology Matthew Jerome 2, M.B.B.S., M.D. [address] [place] [phone] Hospital Gastroenterology and Matthew Jerome Cirrhos is Alcoholic (HCC) 2 Encounter Hepatology Tyrell Rodriguez, Lilian [address] [place] [phone] Anesthesia Event Gastroenterology and Rl, 2 Hepatology Ervin Burgos M.D. [address] [place] [phone] Surgery Gastroenterology and Mousa, Matthew ESOPHAG OGASTRODUODENOSCOPY 2 Hepatology Tyrell Rodriguez, Lilian [address] [place] [phone] Scheduled Procedures Name Priority Associated Diagnoses Date/Time ESOPHAGOGASTRODUODENOSCOPY Cirrhosis Alc oholic (HCC) 03/20/2022 8:45 AM BARREL RIBS SOLDERER Hypertension Portal (HCC) documented as of this [...] documented as of this encounter Care Teams Plaque Maker Relationship Specialty Start Date End Date Elsewhere, Pcp PCP - General Family Medicine 03/10/20 11/30/21 [facility]- [place] lab 08/25/21 Ervin Schroeder MD Referring Provider Family Medicine 03/24/[address] [place] [address] [phone] documented as of this encounter
--- OUTSIDE RECORDS SUMMARY | 2022-02-14 22:07 | XMS_ITS | Encounter Summary ---
:1990 Author Organization [facility] Address [address] [place] [address] Care Team Providers Name Role Phone Elsewhere, Pcp Primary Care Provider Unavailable Reason for Visit Reason Comments Medication Question Encounter Details Date Type Department Care Team Description 10/13/2021 Nurse Triage Department of [facility] Jolynn Villarreal M edication Question Medicine, [facility] [place], in [place], [place] (Work) [address] [phone] Social History Tobacco Use Types Packs/Day Years [...] you attend anabaptism or Patient refused 2021 orthodox services? 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 [address] [place] [phone] Virtual Visit Transplant Matthew Jerome 2 Tyrell Rodriguez M.D. [address] [place] [phone] Office Visit Gastroenterology and Matthew Jerome 2 Hepatology Tyrell Rodriguez M.D. [address] [place] [phone] Appointment Radiology Matthew Jerome 2 YTyrell M.D. [address] [place] [phone] Hospital Gastroenterology and [place] Matthew Cirrhos is Alcoholic (HCC) 2 Encounter Hepatology Tyrell Rodriguez M.D. [address] [place] [phone] Anesthesia Event Gastroenterology and Rl, 2 Hepatology Ervin Burgos M.D. [address] [place] [phone] Surgery Gastroenterology and [place] Matthew ESOPHAG OGASTRODUODENOSCOPY 2 Hepatology Tyrell Rodriguez, Lilian [address] [place] [phone] Scheduled Procedures Name Priority Associated Diagnoses Date/Time ESOPHAGOGASTRODUODENOSCOPY Cirrhosis Alc oholic (HCC) 03/20/2022 8:45 AM DEBURRER MACHINE Hypertension Portal (HCC) documented as of this encounter Visit Diagnoses Not on filedocumented in this encounter Additional Health Concerns Assessment Noted Time PHQ-9 Depression Total Score: 10 10/06/2021 5:00 PM CD T documented as of this encounter Care Teams Territory Manager Relationship Specialty Start Date End Date Elsewhere, Pcp PCP - General Family Medicine 03/10/20 11/30/21 [facility]- [place] lab 08/25/21 Ervin Schroeder MD Referring Provider Family Medicine 03/24/[address] [place] [address] documented as of this encounter
--- OUTSIDE RECORDS SUMMARY | 2022-02-14 22:08 | XMS_ITS | Encounter Summary ---
:1990 Author Organization [facility] Address [address] [place] [address] Care Team Providers Name Role Phone Elsewhere, Pcp Primary Care Provider Unavailable Reason for Visit Reason Onset Date Comments [facility] Financial 09/26/2021 Encounter Details Date Type Department Care Team Description 09/26/2021 Clinical Communication Ramirez Amador, [facility] for [place], Transplantation and C.M.A. Clinical Regeneration in [phone] [place], [place] (Work) [address] [place] [address] Social History Tobacco Use Types Packs/Day [...] you attend rastafarian or Patient refused 2021 episcopal services? 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 - 09/26/2021 10:47 AM CDT Recipient Pre-Transplant Review Document: Organ: Kidney ____ Liver _X___ Heart ____ Lung ____ Pancreas ____ BMT ____ Insurance Carrier: [facility] 2B Demographic Information: __X__ Confirmed information is [...] coordination of benefits: deductible, co-insurance, co-pay, or [id number] maximum. __X__ Patient understands that this is [...] surgery. _X___ Handed patient Financial Assistance Policy. ([id number]) PATIENT EDUCATION Education Material: __X__ Provided patient with an educational guide (Planning for Your Transplant: A Financial Guide [id number]) to assist in outlining financial responsibilities related [...] education provided. _X___ Advised recipient to notify [facility] with any insurance updates or changes; failure to do so may impede transplant eligibility. __X__ Discussed financial concerns related to ability to pay for services and post-transplant care. Including, Financial Assistance policy if financial hardship was identified. __X__ Provided Transplant Financial business card with our contact phone number of [phone] if patient were to have additional questions. __X__ Annual benefit review will be done to verify active coverage with patient's insurance going forward. PATIENT TEACH BACK X [facility] X May have travel and lodging funds available through [facility] X Cost of transplant X Reviewed to call Transplant Financial Coordinators with questions documented in this encounter Plan of Treatment Upcoming Encounters Date Type Specialty Care Team Description Telemedicine Transplant 2 Appointment Radiology Matthew Jerome 2 YJoshuaB.BGraeme, Lilian [address] [place] [phone] Appointment Gastroenterology and Adrianne, 2 Hepatology Yue Burciaga M.D. [address] [place] [phone] Virtual Visit Transplant LuisMatthew abdul 2 Y MSumaB.BLilian Bedolla [address] [place] [phone] Office Visit Gastroenterology and Matthew Jerome 2 Hepatology Joshua RodriguezBSumaBLilian Bedolla [address] [place] [phone] Appointment Radiology Queenie Matthew 2 YJoshuaB.B.Kath, Lilian [address] [place] [phone] [facility] Gastroenterology and Matthew Jerome Cirrhos is Alcoholic (HCC) 2 Encounter Hepatology Joshua RodriguezB.B.Lilian [place] [address] [place] [phone] Anesthesia Event Gastroenterology and Rl, 2 Hepatology Ervin Burgos M.D. [address] [place] [phone] Surgery Gastroenterology and Matthew Jerome ESOPHAG OGASTRODUODENOSCOPY 2 Hepatology Y M.B.B.Kath, Lilian [address] [place] [phone] Scheduled Procedures Name Priority Associated Diagnoses Date/Time ESOPHAGOGASTRODUODENOSCOPY Cirrhosis Alc oholic (HCC) 03/20/2022 8:45 AM PROCUREMENT ENGINEER Hypertension Portal (HCC) documented as of this encounter Visit Diagnoses Not on filedocumented in this encounter Care Teams Gmat Tutor Relationship Specialty Start Date End Date Elsewhere, Pcp PCP - General Family Medicine 03/10/20 11/30/21 [facility]- [facility] 08/25/21 Ervin Schroeder MD Referring Provider Family Medicine 03/24/[address] [place] [phone] documented as of this encounter
--- OUTSIDE RECORDS SUMMARY | 2022-02-14 22:08 | XMS_ITS | Encounter Summary ---
:1990 Author Organization [facility] Address [address] [place] [address] Care Team Providers Name Role Phone Elsewhere, Pcp Primary Care Provider Unavailable Reason for Visit Transplant (Routine) - Closed Specialty Diagnoses / Procedures Referred By Contact Refer red To Contact Transplant Surgery / Warren Hernández [facility] Transplant Lilian, M.P.H. [address] [place] [address] Referral ID Status Reason Start Date Expiration Date Visits Requ ested Visits Authorized [id number] Closed 08/26/2021 08/26/2022 1 1 Encounter Details Date Type Department Care Team Description 10/03/2021 Office Visit Silvano Funez M.D. [address] [place] [phone] Patent Foramen Ovale (HCC) (Primary Dx); [facility] Abelino Chow M.D. 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 [address] [place] [phone] Appointment Gastroenterology and Adrianne, 2 Hepatology Yue Burciaga M.D. [address] [place] [phone] Virtual Visit Transplant Matthew Jerome 2 Joshua RodriguezBSumaBLilian Bedolla [address] [place] [phone] Office Visit Gastroenterology and Matthew Jerome 2 Hepatology Joshua RodriguezBSumaBLilian Bedolla [address] [place] [phone] Appointment Radiology Matthew Jerome 2 YJoshuaB.BLilian Bedolla [address] [place] [phone] Hospital Gastroenterology and Matthew Jerome Cirrhos is Alcoholic (HCC) 2 Encounter Hepatology Joshua RodriguezBSumaBLilian Bedolla [address] [place] [phone] Anesthesia Event Gastroenterology and Rl, 2 Hepatology Ervin Burgos M.D. [address] [place] [phone] Surgery Gastroenterology and Mousa, Matthew ESOPHAG OGASTRODUODENOSCOPY 2 Hepatology Tyrell Rodriugez M.D. [address] [place] [phone] Scheduled Procedures Name Priority Associated Diagnoses Date/Time ESOPHAGOGASTRODUODENOSCOPY Cirrhosis Alc oholic (HCC) 03/20/2022 8:45 AM POWER REGULATOR Hypertension Portal (HCC) documented as of this encounter Visit Diagnoses Diagnosis Patent Foramen Ovale (HCC) - Primary Hypertension Portal (HCC) Cirrhosis Alcoholic (HCC) Pretransplant Recipient Evaluation Exam Cirrhosis Alcoholic (HCC) Cirrhosis Alcoholic (HCC) Hypertension Portal (HCC) documented in this encounter Care Teams Refinery Operator Assistant Relationship Specialty Start Date End Date Elsewhere, Pcp PCP - General Family Medicine 03/10/20 11/30/21 [facility] [place] lab 08/25/21 Ervin Schroeder MD Referring Provider Family Medicine 03/24/21 [facility] [address], [place] [address] documented as of this encounter
--- OUTSIDE RECORDS SUMMARY | 2022-02-14 22:08 | XMS_ITS | Encounter Summary ---
:1990 Author Organization [facility] Address [address] [place] [address] Care Team Providers Name Role Phone Elsewhere, Pcp Primary Care Provider Unavailable Reason for Referral Outpatient (Routine) - Pending Review Specialty Diagnoses / Procedures Referred By Contact Refer red To Contact Migue Justice M .D. [facility] [address] [place] [phone] Referral ID Status Reason Start Date Expiration Date Visits V isits Requested Authorized [id number] Pending 10/01/2021 10/01/2022 1 1 Review Scheduling Instructions Calendar: TXP RESEARCH ROCH 10 [TXP ROCH] Floor: [place] 10a Encounter Details Date Type Department Care Team Description 10/01/2021 Orders Only Ramirez Nguyen [facility] Bernardo cooley for Transplantation and [address] [place] [address] Clinical Regeneration in [place], [place] [phone] [place] [phone] Social History Tobacco Use Types Packs/Day [...] you attend congregational or Patient refused 2021 mormon services? 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 [address] [place] [phone] Appointment Gastroenterology and Adrianne, 2 Hepatology Yue Burciaga M.D. 200 [place] [phone] Virtual Visit Transplant Matthew Jerome 2 Tyrell Rodriguez M.D. [address] [place] [phone] Office Visit Gastroenterology and Matthew Jerome 2 Hepatology Tyrell Rodriguez M.D. [address] [place] [phone] Appointment Radiology LuisMatthew abdul 2 Tyrell Rodriguez M.D. [address] [place] [phone] Hospital Gastroenterology and Matthew Jerome Cirrhos is Alcoholic (HCC) 2 Encounter Hepatology Tyrell Rodriguez M.D. [address] [place] [phone] Anesthesia Event Gastroenterology and Rl, 2 Hepatology Ervin Burgos M.D. [address] [place] [phone] Surgery Gastroenterology and Matthew Jerome ESOPHAG OGASTRODUODENOSCOPY 2 Hepatology Tyrell Rodriguez M.D. [address] [place] [phone] Scheduled Procedures Name Priority Associated Diagnoses Date/Time ESOPHAGOGASTRODUODENOSCOPY Cirrhosis Alc oholic (HCC) 03/20/2022 8:45 AM WHEAT CLEANER Hypertension Portal (HCC) Scheduled Referrals Name Type Priority Associated Order Schedule Diagnoses Research Study Outpatient Referral Routine Expect ed: Coordinator office 2 visit (clinic) (Approximate) , Expires: 01/01/2023 documented as of this encounter Visit Diagnoses Not on filedocumented in this encounter Care Teams Can Coverer Relationship Specialty Start Date End Date Elsewhere, Pcp PCP - General Family Medicine 03/10/20 11/30/21 [facility] [place] lab 08/25/21 Ervin Schroeder MD Referring Provider Family Medicine 03/24/[address] [place] [phone] documented as of this encounter
--- OUTSIDE RECORDS SUMMARY | 2022-02-14 22:08 | XMS_ITS | Encounter Summary ---
:1990 Author Organization [facility] Address [address] [place] [address] Care Team Providers Name Role Phone Elsewhere, Pcp Primary Care Provider Unavailable Encounter Details Date Type Department Care Team Description 09/30/2021 Lab Department of Laboratory Alec Hernández Cirrhosis Alcoholic (HCC); Medicine and PathologySilvano M.D., M.P.H. Abnormal Liver Function Test; [place], in [address] [place] [address] Ascites; [place] [address] Pretransplant Recipient Evaluation Exam; [address] [place] [address] [place] [phone] Social History Tobacco Use Types Packs/Day Years [...] you attend scientology or Patient refused 2021 adventist services? 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 - 10/03/2021 3:32 PM CDT I reviewed the attached results. Urinalysis is negative. Staph epidermidis is likely skin contamination. documented in this encounter Plan of Treatment Upcoming Encounters Date Type Specialty Care Team Description Telemedicine Transplant 2 Appointment Radiology Matthew Jerome 2, M.B.B.S., M.D. [address] [place] [phone] Appointment Gastroenterology demian Silver, 2 Hepatology Yue Burciaga M.D. 200 [place] [phone] Virtual Visit Transplant Matthew Jerome 2 Tyrell Rodriguez M.D. [address] [place] [phone] Office Visit Gastroenterology and Matthew Jerome 2 Hepatology Tyrell Rodriguez M.D. [address] [place] [phone] Appointment Radiology LuisMatthew abdul 2 Tyrell Rodriguez M.D. [address] [place] [phone] Hospital Gastroenterology and Matthew Jerome Cirrhos is Alcoholic (HCC) 2 Encounter Hepatology Tyrell Rodriguez M.D. [address] [place] [phone] Anesthesia Event Gastroenterology and Rl, 2 Hepatology Ervin Burgos M.D. [address] [place] [phone] Surgery Gastroenterology and Matthew Jerome ESOPHAG OGASTRODUODENOSCOPY 2 Hepatology Tyrell Rodriguez M.D. 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 LAB URINE ORDERABLES Performing Organization Address City/[facility] [address]/ZIP Code Phon e Number [facility] - 200 [place], [place] [address] [place] [address] [facility] 200 [facility] Osmolality, Urine (09/30/2021 8:23 AM CDT) athologist Signature Osmolality, U 628 150 - 1150 09/30/2021 DT mOsm/kg 9:41 AM CDT Specimen Anatomical Collection Method Collection Time Receive d Time (Source) Location / / Volume Laterality Urine 09/30/2021 8:23 AM 2 8:24 CDT AM CDT Warren Hernández M.D., M.P.H. LAB URINE ORDERABLES Performing Organization Address City/[facility] [address]/ZIP Code Phon e Number [facility] - [address] [place], [place] [address] [place] [phone] pH, Random, Urine (09/30/2021 8:23 AM CDT) athologist Signature pH, Random, U 5.7 4.5 - 8.0 09/30/2021 DT 9:41 AM CDT Specimen Anatomical Collection Method Collection Time Receive d Time (Source) Location / / Volume Laterality Urine 09/30/2021 8:23 AM 2 8:24 CDT AM CDT Warren Hernández M.D., M.P.H. LAB URINE ORDERABLES Performing Organization Address City/[facility] [address]/ZIP Code Phon e Number [facility] - [address] [place], [place] [address] [place] [address] Microscopic Manual (09/30/2021 8:23 AM CDT) athologist [...] M.P.H. LAB URINE ORDERABLES Performing Organization Address City/[facility] [address]/[facility] Phon e Number [facility] - [address] [place], [place] [address] [facility] [place] [address] [facility] [address] [facility] Ethyl Glucuronide Screen with Reflex, Urine (09/30/2021 8:23 AM CDT) [facility] Method Time Signature Ethyl Negative Cutoff: 09/30/2021 [facility] Glucuronide Scrn 500 ng/mL 11:12 AM CDT w/Reflex, U Comment: ----ADDITIONAL INFORMATION---- This test was developed and its performa nce characteristics determined by [facility] in a manner consistent with CLIA requirements. This test has not been cleared or approved by the [place] d and Drug Administration. Specimen Anatomical Collection Method Collection Time Receive d Time (Source) Location / / Volume Laterality Urine (Urine, 09/30/2021 8:23 AM 10/01/19 22 9:59 Midstream) CDT AM CDT Warren Hernández M.D., M.P.H. LAB URINE ORDERABLES Performing Organization Address City/[facility] [address]/[facility] Code Phon e Number [facility] [address] [place], [place] [address] [facility] [place] [address] Laboratory Medicine and Pathology [address] [place] (ABNORMAL) Bacterial Culture, Aerobic + Susc, Urine (09/30/2021 8:23 AM CDT) Component Value Ref Test Analysis Performed At [facility] Range Method Time Signature Urine Culture STAPHYLOCOCCUS [...] City/State/ZIP Code Phon e Number [facility] - [address] [place] [address] [facility] [place] [place] [address] [facility] 200 [facility] (ABNORMAL) Drug Abuse Survey with Confirmation, Panel 9, Urine (09/30/2021 8:23 AM CDT) Component Value Ref Test Analysis Performed At [facility] Range Method Time Signature Alcohol Negative [...] 150 ng/mL 09/30/2021 11:12 AM CD T [facility] Comment: This cocaine immunoassay targets benzoyl ecgonine the primary metabolite of cocaine. Methadone Metabolite Negative Cutoff: 300 09/30/2021 11:12 AM SDSC ng/mL CDT Opiates Negative Cutoff: 300 09/30/2021 11:12 AM SDSC ng/mL CDT Phencyclidine Negative Cutoff: 25 ng/mL 09/30/2021 11:12 AM SDSC CDT Tetrahydrocannabinol Presumptive Positive Cutoff: 50 ng/mL 09/30/2021 11:12 AM [facility] (A) CDT Comment: This immunoassay targets [...] Its performance characteristics were determi foreign by [facility] in a manner consistent with [...] City/State/ZIP Code Phon e Number [facility] [address] [place], [place] [address] [facility] [place] [address] Laboratory Medicine and Pathology [address] [place] Urinalysis with Microscopic: Urine, Midstream (09/30/2021 8:23 AM CDT) [facility] Method Time Signature Source Urine, Urine, [...] City/State/ZIP Code Phon e Number [facility] - [address] [place], [place] [address] [facility] [place] [address] [facility] [address] documented in this encounter Visit Diagnoses Diagnosis Cirrhosis Alcoholic (HCC) Abnormal Liver Function Test [facility] Pretransplant Recipient Evaluation Exam Preoperative Exam Cirrhosis Alcoholic (HCC) Cirrhosis Alcoholic (HCC) Hypertension Portal (HCC) documented in this encounter Care Teams Automated Logistics Specialist Relationship Specialty Start Date End Date Elsewhere, Pcp PCP - General Family Medicine 03/10/20 11/30/21 [facility] [place] [facility] 08/25/21 Ervin Schroeder MD Referring Provider Family Medicine 03/24/[address] [place] [address] documented as of this encounter
--- OUTSIDE RECORDS SUMMARY | 2022-02-14 22:08 | XMS_ITS | Encounter Summary ---
:1990 Author Organization [facility] Address [address] [place] [address] Care Team Providers Name Role Phone Elsewhere, Pcp Primary Care Provider Unavailable Reason for Visit Outpatient (Routine) - Closed Specialty Diagnoses / Procedures Referred By Contact Refer red To Contact Preventive Medicine Diagnoses Cirrhosis Alcoholic (HCC) Abnormal Liver Function Test [facility] Pretransplant Recipient Evaluation Exam Preoperative Exam Warren Hernández [facility] Lilian, M.P.H. [address] [place] [address] Referral ID Status Reason Start Date Expiration Date Visits Requ ested Visits Authorized [id number] Closed 08/25/2021 08/25/2022 1 1 Encounter Details Date Type Department Care Team Description 10/01/2021 Comprehensive Visit Section of Preventive, Alicia Diggs Counseling Preventive (Primary Dx); Transportation and K, GAS BRAZER, Cirrhosis Alcoholic (HCC); Occupational Medicine C.N.P. Abnorm al Liver Function Test; in [facility]; [place] Pretransplant Recipient Eval uation Exam; [address] [facility] [place] [phone] Social History Tobacco Use Types Packs/Day Years [...] you attend worship or Patient refused 2021 rastafari services? Do [...] technical, or vocational [facility] degree you have received? 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 [address] [place] [phone] Virtual Visit Transplant Matthew Jerome 2 Y M.B.B.SSuma, Lilian [address] [place] [phone] Office Visit Gastroenterology and Matthew Jerome 2 Hepatology Jennifer M.B.B.SSuma, Lilian [address] [place] [phone] Appointment Radiology Matthew Jerome 2 Y M.B.B.SSuma, Lilian [address] [place] [phone] Hospital Gastroenterology and Matthew Jerome Cirrhos is Alcoholic (HCC) 2 Encounter Hepatology Jennifer M.B.B.SSuma, Lilian [address] [place] [phone] Anesthesia Event Gastroenterology and Rl, 2 Hepatology Ervin Burgos M.D. [address] [place] [phone] Surgery Gastroenterology and Mousa, Matthew ESOPHAG OGASTRODUODENOSCOPY 2 Hepatology Tyrell Rodriguez M.D. 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 Hypertension Portal (HCC) documented as of this encounter Visit Diagnoses Diagnosis Counseling Preventive - Primary Cirrhosis Alcoholic (HCC) Abnormal Liver Function Test [facility] Pretransplant Recipient Evaluation Exam Preoperative Exam Cirrhosis Alcoholic (HCC) Cirrhosis Alcoholic (HCC) Hypertension Portal (HCC) documented in this encounter Care Teams Aircraft Painter Relationship Specialty Start Date End Date Elsewhere, Pcp PCP - General Family Medicine 03/10/20 11/30/21 [facility] [place] [facility] 08/25/21 Ervin Schroeder MD Referring Provider Family Medicine 03/24/[address] [place] [phone] documented as of this encounter
--- OUTSIDE RECORDS SUMMARY | 2022-02-14 22:08 | XMS_ITS | Encounter Summary ---
:1990 Author Organization [facility] Address [address] [place] [address] Care Team Providers Name Role Phone Elsewhere, Pcp Primary Care Provider Unavailable Reason for Referral Outpatient (Routine) - Closed Specialty Diagnoses / Procedures Referred By Contact Refer red To Contact Diagnoses Cirrhosis Alcoholic (HCC) Abnormal Liver Function Test [facility] Pretransplant Recipient Evaluation Exam Preoperative Exam Warren Hernández M.D., [facility] Procedures Short renal clearance: Iothalamate (Renal Studies Unit) M.P.H. [address] [place] [address] Referral ID Status Reason Start Date Expiration Date Visits Requ ested Visits Authorized [id number] Closed 08/25/2021 08/25/2022 1 1 Reason for Visit Outpatient (Routine) - Closed Specialty Diagnoses / Procedures Referred By Contact Refer red To Contact Diagnoses Cirrhosis Alcoholic (HCC) Abnormal Liver Function Test [facility] Pretransplant Recipient Evaluation Exam Preoperative Exam Warren Hernández M.D., [facility] Procedures Short renal clearance: Iothalamate (Renal Studies Unit) M.P.H. [address] [place] [address] Referral ID Status Reason Start Date Expiration Date Visits Requ ested Visits Authorized [id number] Closed 08/25/2021 08/25/2022 1 1 Encounter Details Date Type Department Care Team Description 10/03/2021 Hospital Encounter Department of Edgar, Travosi s Alcoholic (HCC); Laboratory Medicine Warren Schaefer M.D., R[place] Liver Function Test; and Pathology, M.P.H. Ascites; [place] [address] [place] [address] Pretransplant Recipient Evaluation Exam; Building, in [place], [place] Preoperative E xam [address] [phone] [address] [facility] [place], [place] [phone] [address] (Fax) [phone] Social History Tobacco Use Types Packs/Day Years [...] you attend quaker or Patient refused 2021 judaism services? Do [...] or the highest technical, or vocational p [facility] degree you have received? 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 [address] [place] [phone] Virtual Visit Transplant Matthew Jerome 2 YVikBGraeme, Lilian [address] [place] [phone] Office Visit Gastroenterology and Matthew Jerome 2 Hepatology Vik RodriguezBLilian Bedolla [address] [place] [phone] Appointment Radiology Matthew Jerome 2 YTyrell M.D. [address] [place] [phone] Hospital Gastroenterology and Matthew Jerome Cirrhos is Alcoholic (HCC) 2 Encounter Hepatology Tyrell Rodriguez M.D. [address] [place] [phone] Anesthesia Event Gastroenterology and Rl, 2 Hepatology Ervin Burgos M.D. [address] [place] [phone] Surgery Gastroenterology and Mousa, Matthew ESOPHAG OGASTRODUODENOSCOPY 2 Hepatology Tyrell Rodriguez M.D. [address] [place] [phone] Scheduled Orders Name Type Priority Associated Diagnoses Order S chedule Short renal clearance: Procedures Routine Cirrhosis Alcoholi c Once for 1 Occurrences Iothalamate (Renal (HCC) starting 10/03/2021 Studies Unit) Abnormal Liver until 2021 Function Test [facility] Pretransplant Recipient Evaluation Exam Preoperative Exam Scheduled Procedures Name Priority Associated Diagnoses Date/Time ESOPHAGOGASTRODUODENOSCOPY Cirrhosis Alc oholic (HCC) 03/20/2022 8:45 AM BANK RECONCILIATOR Hypertension Portal (HCC) documented as of this [...] performa nce characteristics determined by [facility] in a manner consistent with CLIA requirements. This test has not been cleared or approved by the [place] and Drug Administration. Specimen Anatomical Collection Method Collection Time Receive d Time (Source) Location / / Volume Laterality Varies (Blood, 10/03/2021 11:18 2 Venous) AM CDT 12:59 PM CDT Narrative [facility] - 10/06/2021 2:59 PM CDT Specimen Information: Specimen ID: [id number] Specimen Type: Varies Specimen Collection Start Date: 11:18 AM Specimen Received Date: 10/03/2021 12:59 PM Specimen ID: [id number] Specimen Type: Varies Specimen Collection Start Date: 12:07 PM Specimen Received Date: 10/03/2021 12:59 PM Specimen ID: [id number] Specimen Type: Varies Specimen Collection Start Date: 12:41 PM Specimen Received Date: 10/03/2021 12:59 PM Specimen ID: [id number] Specimen Type: Varies Specimen Collection Start Date: 12:10 PM Specimen Received Date: 10/03/2021 12:59 PM Specimen ID: [id number] Specimen Type: Varies Specimen Collection Start Date: 12:43 PM Specimen Received Date: 10/03/2021 12:59 PM Warren Hernández M.D., M.P.H. LAB BLOOD NON ADD-ON Performing Organization Address City/State/ZIP Code Phon e Number [facility] - [address] [place] [address] [place] [address] [facility] [address] documented in this [...] dose documented in this encounter Care Teams Compressor Assembler Relationship Specialty Start Date End Date Elsewhere, Pcp PCP - General Family Medicine 03/10/20 11/30/21 [facility] 08/25/21 Ervin Schroeder MD Referring Provider Family Medicine 03/24/[address] [place] [address] documented as of this encounter
--- OUTSIDE RECORDS SUMMARY | 2022-02-14 22:08 | XMS_ITS | Encounter Summary ---
:1990 Author Organization [facility] Address [address] [place] [address] Care Team Providers Name Role Phone Elsewhere, Pcp Primary Care Provider Unavailable Reason for Referral Transplant (Routine) - Authorized Specialty Diagnoses / Procedures Referred By Contact Refer red To Contact Transplant Surgery / Matthew Jerome [place] [facility] Transplant M.B.B.S., M.D. [address] [place] [phone] Referral ID Status Reason Start Date Expiration Date Visits V isits Requested Authorized [id number] Authorized 10/27/2021 10/27/2022 1 1 Scheduling Instructions May be phone or video- patient preferenc e. Scheduled in [place]. Thanks Transplant (Routine) - Authorized Specialty Diagnoses / Procedures Referred By Contact Refer red To Contact Transplant Surgery / Matthew Jerome [place] [facility] eg[facility] Transplant M.B.B.S., M.D. [address] [place] [phone] Referral ID Status Reason Start Date Expiration Date Visits V isits Requested Authorized [id number] Authorized 10/27/2021 10/27/2022 1 1 Scheduling Instructions [place] Scheduled in [place]. Thanks Reason for Visit Reason Comments Patient Education 1:1 education Encounter Details Date Type Department Care Team Description 10/01/2021 Education Warrne Carter M.D., M.P.H. [address] [place], [place] [phone] Cirrhosis Alcoholic (HCC); [facility] Chano Engle, R.N., C.C.T.C. Abnormal Liver Function Test; Transplantation and Ascites; Clinical Regeneration in Pre transplant Recipient Evaluation Exam; [place], [place] Preoperative Exam [address] [place] [phone] Social History Tobacco Use Types Packs/Day [...] you attend taoist or Patient refused 2021 congregational services? 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 - 10/01/2021 8:00 AM CDT Diagnosis: ALD ABO: [] A [x] B [] AB [] O UNOS Status: initial evaluation Calculated MELD Score: 32 Appealed/Exception Score: Not applicable Immunizations recommended include:PCV13, pneumo 23, influenza, Hepatitis A, Shingrix, COVID 3rd and booster highly recommended Is this a [employer]/HSB patient: [] Yes [x] No Coordinated listing discussed: [] Yes [] No [x] NA Brochure ([id number]) provided: [] Yes [x] No Listing ID [...] discussedand reviewed the consent for evaluation form [id number]. All questions were answered. Catia Carias has [...] - Laney Frost M.A.N., Myrtle, C.C.T.C. - 10/01/2021 8:00 AM CDT Addended by: [...] Matthew Jerome 2 Tyrell Rodriguez M.D. [address] [place] [address] [phone] Appointment Gastroenterology demian Silver, 2 Hepatology Yue Burciaga M.D. [address] [place] [phone] Virtual Visit Transplant Matthew Jerome 2 Tyrell Rodriguez M.D. [address] [place] [address] [phone] Office Visit Gastroenterology and Matthew Jerome 2 Hepatology Tyrell Rodriguez M.D. [address] [place] [address] [phone] Appointment Radiology Matthew Jerome 2, M.B.B.S., M.D. [address] [place] [phone] Hospital Gastroenterology and [facility] Cirrhos is Alcoholic (HCC) 2 Encounter Hepatology Tyrell Rodriguez M.D. [address] [place] [address] [phone] Anesthesia Event Gastroenterology and Rl, 2 Hepatology Ervin Burgos M.D. [address] [place] [phone] Surgery Gastroenterology and Matthew Jerome ESOPHAG OGASTRODUODENOSCOPY 2 Hepatology Tyrell Rodriguez M.D. [address] [place] [phone] Pending Results Name Type Priority Associated Diagnoses [...] Cirrhosis Alc oholic (HCC) 03/20/2022 8:45 AM CHECK CLERK Hypertension Portal (HCC) Scheduled Referrals Name [...] Organization Address City/State/ZIP Code Phon e Number [facility] - [address] [place], [place] [address] [facility] [place] [address] [facility] [address] (ABNORMAL) CRP (C-Reactive Protein) (02/12/2022 10:16 AM CDT) athologist [facility] C-Reactive 12.1 (H) <=8.0 mg/L 02/12/2022 DTL Protein (CRP), 11:18 AM CDT S Specimen Anatomical Collection Method Collection Time Receive d Time (Source) Location / / Volume Laterality Blood (Blood, 02/12/2022 10:16 02/12/2022 Venous) AM CDT 10:57 AM CDT Matthew Santillan M.D. LAB BLOOD ADD-ON Performing Organization Address City/State/ZIP Code Phon e Number [facility] - [address] [place] [phone] [facility] [place] [address] [facility] 200 [facility] AFP (Alpha-Fetoprotein), Tumor Marker (02/12/2022 10:16 AM CDT) [facility] Alpha-Fetoprote 7.9 ng/mL 02/12/2022 SDSC in, Tumor 3:41 PM CDT Marker, S Comment: ----REFERENCE VALUE---- <8.4 Reference values are for non- subjects only; production of AFP elevates values in women. ----ADDITIONAL INFORMATION---- In this Richie [place] assay AFP concen trations are <8.4 ng/mL [...] method is an immunoenzymatic assay manufactured by [employer] and is tested on the Richie Waqas Unicel DxI 800. Values obtained with different [...] M.D. LAB BLOOD ADD-ON Performing Organization Address City/State/[facility] Code Phon e Number [facility] [address] [place], [place] [address] SUPPORT [address] [place] (ABNORMAL) CBC with Differential, Blood (02/12/2022 10:16 AM CDT) [facility] Method Time Signature Hemoglobin 9.4 (L) [...] LAB BLOOD ADD-ON Performing Organization Address City/[facility] Phon e Number [facility] - [address] (ABNORMAL) Bilirubin, Direct (02/12/2022 10:16 AM CDT) P athologist Signature Bilirubin, 4.4 (H) 0.0 - 0.3 02/12/2022 DT Direct, S mg/dL 11:15 AM CDT Specimen Anatomical Collection Method Collection Time Receive d Time (Source) Location / / Volume Laterality Blood (Blood, 02/12/2022 10:16 02/12/2022 Venous) AM CDT 10:57 AM CDT Matthew Santillan M.D. LAB BLOOD ADD-ON Performing Organization Address City/[facility] Phon e Number [facility] - [address] (ABNORMAL) Comprehensive Metabolic Panel (02/12/2022 10:16 [...] Organization Address City/State/ZIP Code Phon e Number [facility] - [address] [place], [place] [address] [facility] [place] [address] [facility] [address] documented in this encounter Visit Diagnoses Diagnosis Cirrhosis Alcoholic (HCC) Abnormal Liver Function Test Ascites Pretransplant Recipient Evaluation Exam Preoperative Exam Cirrhosis Alcoholic (HCC) Cirrhosis Alcoholic (HCC) Hypertension Portal (HCC) documented in this encounter Care Teams Baseball Sewer Hand Relationship Specialty Start Date End Date Elsewhere, Pcp PCP - General Family Medicine 03/10/20 11/30/21 [facility] [place] [facility] 08/25/21 Ervin Schroeder MD Referring Provider Family Medicine 03/24/[address] [place] [address] documented as of this encounter
--- OUTSIDE RECORDS SUMMARY | 2022-02-14 22:08 | XMS_ITS | Encounter Summary ---
:1990 Author Organization [facility] Address [address] [place] [address] Care Team Providers Name Role Phone Elsewhere, Pcp Primary Care Provider Unavailable Reason for Referral Physical Therapy (Routine) - Pending Review Specialty Diagnoses / Procedures Referred By Contact Refer red To Contact Diagnoses Edema Leg Matthew Jerome M.B.BSumaSSuma, [facility] Procedures PT Ongoing treatment .D. [address] [place] [phone] Referral ID Status Reason Start Date Expiration Date Visits V isits Requested Authorized [id number] Pending 09/24/2021 09/24/2022 99 99 Review Reason for Visit Physical Therapy (Routine) - Closed Specialty Diagnoses / Procedures Referred By Contact Refer red To Contact Diagnoses Edema Leg Matthew Jerome M.B.BGraeme, [facility] Procedures PT Evaluate and treat M.D. [address] [place] [phone] Referral ID Status Reason Start Date Expiration Date Visits Requ ested Visits Authorized [id number] Closed 09/16/2021 09/16/2022 1 1 Encounter Details Date Type Department Care Team Description 09/24/2021 Comprehensive Visit Department of Physical Matthew Jerome M.B.B.S., Lilian [address] [place] [phone] Edema Leg Medicine and Jessy Haywood M.S., P.T., CLT-JAKI [address] [place] [phone] Rehabilitation in [place], [place] [address] [place] [phone] Social History Tobacco Use Types Packs/Day [...] you attend rastafarian or Patient refused 2021 denominational services? 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 Edema Leg Reason for Referral: Insurance: Payor: [employer] [place] CARE / Plan: finalsite HMO / Product Type: MedicaidHMO / Total [...] patient education handout A Guide to Lymphedema (FJ4736), as well as signs and symptoms of cellulitis utilizing patient education handout Cellulitis (CF1478). - Instructed exercises to reduce lymphedema. - [...] Program: Exercises to Reduce Lower Extremity Swelling-MC 4443 Treatment Response: The patient reported that she [...] Appointment Radiology LuisMatthew abdul 2 YTyrell M.D. [address] [place] [phone] Appointment Gastroenterology and Adrianne, 2 Hepatology Yue Burciaga M.D. [address] [place] [phone] Virtual Visit Transplant LuisMathtew abdul 2 Tyrell Rodriguez M.D. [address] [place] [phone] Office Visit Gastroenterology and LuisMatthew abdul 2 Hepatology Tyrell Rodriguez M.D. [address] [place] [phone] Appointment Radiology LuisNew abdular 2 YTyrell M.D. [address] [place] [phone] Hospital Gastroenterology and Matthew Jerome Cirrhos is Alcoholic (HCC) 2 Encounter Hepatology Tyrell Rodriguez M.D. [address] [place] [phone] Anesthesia Event Gastroenterology and Rl, 2 Hepatology Ervin Burgos M.D. [address] [place] [phone] Surgery Gastroenterology and Mousa, Matthew ESOPHAG OGASTRODUODENOSCOPY 2 Hepatology Tyrell Rodriguez M.D. [address] [place] [phone] Scheduled Procedures Name Priority Associated Diagnoses Date/Time ESOPHAGOGASTRODUODENOSCOPY Cirrhosis Alc oholic (HCC) 03/20/2022 8:45 AM PULP AND PAPER TESTER Hypertension Portal (HCC) documented as of this encounter Visit Diagnoses Diagnosis Edema Leg Cirrhosis Alcoholic (HCC) Cirrhosis Alcoholic (HCC) Hypertension Portal (HCC) documented in this encounter Care Teams Cut Order Hand Relationship Specialty Start Date End Date Elsewhere, Pcp PCP - General Family Medicine 03/10/20 11/30/21 [facility] [place] [facility] 08/25/21 Ervin Schroeder MD Referring Provider Family Medicine 03/24/[address] [place] [phone] documented as of this encounter
--- OUTSIDE RECORDS SUMMARY | 2022-02-14 22:08 | XMS_ITS | Encounter Summary ---
:1990 Author Organization [facility] Address [address] [place] [address] Care Team Providers Name Role Phone Elsewhere, Pcp Primary Care Provider Unavailable Encounter Details Date Type Department Care Team Description 10/02/2021 Orders Only Jairo Gamino am [facility] [address] [facility] Exam (Primary Dx) and Clinical Regeneration [place], [place] in [facility] [phone] [place] [phone] Social History Tobacco Use Types Packs/Day [...] you attend congregation or Patient refused 2021 jew services? 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 [address] [place] [phone] Virtual Visit Transplant Matthew Jerome 2 YTyrell M.D. [address] [place] [phone] Office Visit Gastroenterology and Matthew Jerome 2 Hepatology Tyrell Rodriguez M.D. [address] [place] [phone] Appointment Radiology Luischantell Matthew 2 YVikBGraeme, Lilian [address] [place] [phone] Hospital Gastroenterology and [facility] Matthew Cirrhos is Alcoholic (HCC) 2 Encounter Hepatology Tyrell Rodriguez M.D. [address] [place] [address] [phone] Anesthesia Event Gastroenterology and Rl, 2 Hepatology Ervin Burgos M.D. [address] [place] [address] [phone] Surgery Gastroenterology and [facility] Matthew ESOPHAG OGASTRODUODENOSCOPY 2 Hepatology Joshua RodriguezBSumaBLilian Bedolla [address] [place] [address] [phone] Scheduled Procedures Name Priority Associated Diagnoses Date/Time ESOPHAGOGASTRODUODENOSCOPY Cirrhosis Alc oholic (HCC) 03/20/2022 8:45 AM C[employer] FOOD Hypertension Portal (HCC) documented as of this encounter Visit Diagnoses Diagnosis Clinical Research Exam - Primary Cirrhosis Alcoholic (HCC) Cirrhosis Alcoholic (HCC) Hypertension Portal (HCC) documented in this encounter Care Teams Engineering Inspection Assistant Relationship Specialty Start Date End Date Elsewhere, Pcp PCP - General Family Medicine 03/10/20 11/30/21 [facility] [place] [facility] 08/25/21 Ervin Schroeder MD Referring Provider Family Medicine 03/24/[address] [place] [phone] documented as of this encounter
--- OUTSIDE RECORDS SUMMARY | 2022-02-14 22:08 | XMS_ITS | Encounter Summary ---
:1990 Author Organization [facility] Address [address] [place] [address] Care Team Providers Name Role Phone Elsewhere, Pcp Primary Care Provider Unavailable Reason for Visit Reason Comments Leg Pain Encounter Details Date Type Department Care Team Description 09/28/2021 Nurse Triage Department of [facility] Naila Walters, Myrtle Leg Pain Medicine, [facility], in [address] [place], [place] [address] [place] [phone] [place] [address] [phone] Social History Tobacco Use Types Packs/Day Years [...] you attend scientologist or Patient refused 2021 restorationism services? 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 - 09/28/2021 4:13 PM CDT Chief Complaint [...] weeping fluid) Protocols used: LEG SWELLING AND FINVP-DYUZV-CB Care Advice Patient/Caregiver understands and will follow care advice?: Yes, able to teach back CALL BACK IF: * You become worse. documented in this encounter Plan of Treatment Upcoming Encounters Date Type Specialty Care Team Description Telemedicine Transplant 2 Appointment Radiology Matthew Jerome 2 Tyrell Rodriguez M.D. [address] [place] [address] [phone] Appointment Gastroenterology demian Silver, 2 Hepatology Yue Burciaga M.D. [address] [place] [phone] Virtual Visit Transplant Matthew Jerome 2 Tyrell Rodriguez M.D. [address] [place] [address] [phone] Office Visit Gastroenterology and Matthew Jerome 2 Hepatology Tyrell Rodriguez M.D. [address] [place] [address] [phone] Appointment Radiology Matthew Jerome 2 Vik RodriguezBLilian Bedolla [address] [place] [address] [phone] Hospital Gastroenterology and Matthew Jerome Cirrhos is Alcoholic (HCC) 2 Encounter Hepatology Joshua RodriguezBSumaBLilian Bedolla [address] [place] [phone] Anesthesia Event Gastroenterology and Rl, Olinda Hepatology Ervin Burgos M.D. [address] [place] [phone] Surgery Gastroenterology and Matthew Jerome ESOPHAG OGASTRODUODENOSCOPY 2 Hepatology Tyrell Rodriguez M.D. [address] [place] [phone] Scheduled Procedures Name Priority Associated Diagnoses Date/Time ESOPHAGOGASTRODUODENOSCOPY Cirrhosis Alc oholic (HCC) 03/20/2022 8:45 AM ELEVATOR INSTALLER APPRENTICE Hypertension Portal (HCC) documented as of this encounter Visit Diagnoses Not on filedocumented in this encounter Care Teams Lecturer In Computer Science Relationship Specialty Start Date End Date Elsewhere, Pcp PCP - General Family Medicine 03/10/20 11/30/21 [facility] [place] [facility] 08/25/21 Ervin Schroeder MD Referring Provider Family Medicine 03/24/[address] [place] [phone] documented as of this encounter
--- OUTSIDE RECORDS SUMMARY | 2022-02-14 22:08 | XMS_ITS | Encounter Summary ---
:1990 Author Organization [facility] Address [address] [place] [address] Care Team Providers Name Role Phone Elsewhere, Pcp Primary Care Provider Unavailable Reason for Visit Reason Comments Med Management Outpatient (Routine) - Closed Specialty Diagnoses / Procedures Referred By Contact Refer red To Contact Pharmacy Diagnoses Cirrhosis Alcoholic (HCC) Abnormal Liver Function Test Ascites Pretransplant Recipient Evaluation Exam Preoperative Exam Warren Hernández M.D., [facility] M.P.[facility] [address] [place] [address] Referral ID Status Reason Start Date Expiration Date Visits Requ ested Visits Authorized [id number] Closed 08/25/2021 08/25/2022 1 1 Encounter Details Date Type Department Care Team Description 09/30/2021 Office Visit Warren Carter M.D., M.P.H. [address] [place] [phone] Cirrhosis Alcoholic (HCC); [facility] Evon Joseph, Pharm.D., R.Ph. [address] [place] [phone] Abnormal Liver Function Test; Transplantation and Ascites; Clinical Regeneration in Pre transplant Recipient Evaluation Exam; [place], [place] Preoperative Exam [address] [place] [phone] Social History Tobacco Use Types Packs/Day [...] you attend pentecostalism or Patient refused 2021 religion services? 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 - 09/30/2021 8:00 AM CDT Pre-Transplant Assessment SUBJECTIVE Referring Provider Warren Hernández M.D., M.P.H. Chief Complaint Targeted Transplant Medication Therapy Management: Review of therapies for liver disease, medicationadherence, and any medications that impact transplant candidacy. History of Present Illness (HPI) Catia Carias is a 31 y.o. female who is seen today by [facility] Pharmacist. The patient presents today for a [facility] Pharmacist transplant evaluation; consideration for transplant [...] future, as smoking hurts her lungs.[employer] [place] registration #[id number]. Insomnia medications: She also has hydroxyzine 25 [...] 1 mgdaily, thiamine 100 mg daily, ergocalciferol 20007 IU weekly on Wednesday and vitamin A 66887 units three days per week. Contraception medications: [...] 1 time per month. The patient uses [employer] locally. Does the patient know what medications [...] Radiology Matthew Jerome 2 YTyrell M.D. [address] [place] [address] [phone] Appointment Gastroenterology and Doll, 2 Hepatology Yue Burciaga M.D. [address] [place] [phone] Virtual Visit Transplant Matthew Jerome 2 YTyrell M.D. [address] [place] [phone] Office Visit Gastroenterology and Matthew Jerome 2 Hepatology Tyrell Rodriguez M.D. [address] [place] [phone] Appointment Radiology LuisMatthew abdul 2 YTyrell M.D. [address] [place] [phone] Hospital Gastroenterology and [place] Matthew Cirrhos is Alcoholic (HCC) 2 Encounter Hepatology Tyrell Rodriguez M.D. [address] [place] [address] [phone] Anesthesia Event Gastroenterology and Rl, 2 Hepatology Ervin Burgos M.D. [address] [place] [address] [phone] Surgery Gastroenterology and Queenie Matthew ESOPHAG OGASTRODUODENOSCOPY 2 Hepatology Tyrell Rodriguez M.D. 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 Hypertension Portal (HCC) documented as of this encounter Visit Diagnoses Diagnosis Cirrhosis Alcoholic (HCC) Abnormal Liver Function Test Ascites Pretransplant Recipient Evaluation Exam Preoperative Exam Cirrhosis Alcoholic (HCC) Cirrhosis Alcoholic (HCC) Hypertension Portal (HCC) documented in this encounter Care Teams Environmental Aid Relationship Specialty Start Date End Date Elsewhere, Pcp PCP - General Family Medicine 03/10/20 11/30/21 [facility] [place] [facility] 08/25/21 Ervin Schroeder MD Referring Provider Family Medicine 11/22/[address] [place] [phone] documented as of this encounter
--- OUTSIDE RECORDS SUMMARY | 2022-02-14 22:08 | XMS_ITS | Encounter Summary ---
:1990 Author Organization [facility] Address [address] [place] [address] Care Team Providers Name Role Phone Elsewhere, Pcp Primary Care Provider Unavailable Reason for Visit Transplant (Routine) - Closed Specialty Diagnoses / Procedures Referred By Contact Refer red To Contact Transplant Surgery / Diagnoses Cirrhosis Alcoholic (HCC) Abnormal Liver Function Test Ascites Pretransplant Recipient Evaluation Exam Preoperative Exam Warren Hernández, [facility] Transplant Lilian, M.P.H. [address] [place] [address] Referral ID Status Reason Start Date Expiration Date Visits Requ ested Visits Authorized [id number] Closed 08/25/2021 08/25/2022 1 1 Encounter Details Date Type Department Care Team Description 09/30/2021 Clinical Support Warren Carter M.D., M.P.H. [address] [place] [address] Cirrhosis Alcoholic (HCC); Center for Joel Tan L.I.C.S.W., M.S.W. [address] [place] [address] [place] [address] Abnormal Liver Function Test; Transplantation and Ascites; Clinical Regeneration Pretra nsplant Recipient Evaluation Exam; in [facility] Preoperative Exam [address] [place] [address] Social History Tobacco Use Types Packs/Day Years [...] you attend anglican or Patient refused 2021 shinto services? 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 - 09/30/2021 10:30 AM CDT Transplant Psychosocial Assessment DEMOGRAPHIC INFORMATION SUBJECTIVE Referral Source: Dr. Warren Hernández, Liver Transplant team Patient seen for: pre-transplant of liver Persons present: Patient, who prefers to be called, Christelle, and her mother, Parris Knight. Previous Psychosocial Assessment : No Patient's primary care provider/clinic: Dr. Migue Schroeder at [facility] in [place], [place]. Primary language: Lao For this interview, the patient utilized language services: No Citizenship US citizen: Yes US resident: Yes Race/Ethnicity: Race: White Ethnicity: Indonesian, Descent Disclaimer: ?? The patient and her [...] understanding. ?? The role of the Transplant Pipeline Operator was explained. ?? Selection Committee: The patient [...] of origin: The patient was raised in [place], [place]. Her parents when she was 20 years old. Her mother remarried. The patient calls her step- father, Siva, her bonus father. The patient's mother and step-father live in [place], [place]. The patient's father did not remarry. 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 She stopped working in January 2021 as she was advised to no longer work due to her medical condition. Patient's plan for extended time off for recovery: The patient does not currently have a source of income. Boyfriend's work: The patient's boyfriend works epic application coordinator as a paint conveyor line battery charger for a powder coating company called [employer]. Spiritual Practices/Latter Day/Culture Spirituality / Latter Day / Culture: The patient stated she does not have a shinto preference. The patient was informed of the availability of Manager Of Customer Billing Services at [facility]. History The patient stated she has [...] a nurse come into her home from [facility] every (phone: [phone]). The nurse sets up the patient's medications [...] The patient lives [place] from [place]. She would arrive via private vehicle. Relocation Plan: The patient was provided with information on the [facility]. Shewas also provided with information on the Trim Attacher Services at [facility] who can assist with answering questions about local lodging accommodations. We did not have an opportunity to discuss these in detail today due to the time constraints of our interview, however I have encouraged the patient tocall me should she have additional questions. FINANCES/INSURANCE Primary insurance: [employer] PLUS HMO ([place] Medicaid) Secondary/Supplemental insurance: None Does patient have a benefit for travel, lodging and/or meals through insurance? The patient does notknow. I advised her to contact [facility] Dupligraph Operator to inquire about her eligibility for benefits. Household Information Number of persons in household: Two (patient and her boyfriend) Type of housing: Rent Source of household income: The patient does not currently have a source of income. She stated she is not receiving any assistance (such as food support) through her [facility] Dupligraph Operator office. She has not yet applied for assistance. The patient's boyfriend has income through his epic application coordinator employment wages. Current Financial Concerns: The patient [...] including the application process. Pharmacy Pharmacy coverage: [facility] BLUE PLUS HMO ([place] Medicaid) Current medication(s) received through prescription assistance [...] advance directive. I provided the patient with [facility]'s blank advance directive booklet and provided her with education on advance directives. I encouraged the patient to provide a copy of an advance directive to [facility], should she completed one in the [...] Service and had to meet with a booking police officer. The patient was asked how [...] with pain. The patient showed me her [place] Medical Cannabis Patient Registration Verification Card on her cell phone. She stated she started using medical cannabis in May 2021 and that it was prescribed for chronic leg pain which she states it is either neuropathy brought on by cirrhosis, retirement effects brought on by drugs used to [...] have a couple of puffs. The patient's [place] Medical [place] registration number is: [id number]. Family History: Father - alcohol (past, not currently of concern) Labs: Ethyl Glucuronide screen: 09/30/2021 - negative Urine Drug screen: 09/30/2021 - presumptive positive for benzodiazepines and THC. PEth: 09/30/2021 - in process ASSESSMENT / PLAN DISCUSSION Met with the patient and her mother at the [place] [facility] [address] [facility] this morning. The patient is [...] 16 or 17 and has had a Z[employer]GG[employer] Cannabis card since May 2021. Capability of [...] The patient was advised to contact her [facility] social science research assistant office to determine [...] - [facility] brochure ([id number]) - Patient's Guide to [facility] ([id number]) - Information for Caregivers: Taking Care of Yourself ([id number]) - Preparing for Transplant: Body, Mind, and Spirit ([id number]) - [facility] Advance directive booklet - [employer] financial assistance resource guide - What to Expect as a Transplant Caregiver brochure ([id number]) - National Living Donor Assistance Center brochure - [employer] fundraising brochure - National Foundation for Transplants fundraising brochure - [facility]: 5 Ways to Connect ([id number]) PLAN -The patient will continue through the [...] Radiology Matthew Jerome 2 YTyrell M.D. [address] [place] [phone] Appointment Gastroenterdina and Adrianne, 2 Hepatology Yue Burciaga M.D. [address] [place] [address] Virtual Visit Transplant Matthew Jerome 2 YTyrell M.D[address] [place] [address] [phone] Office Visit Gastroenterology and [facility] 2 Hepatology Tyrell Rodriguez M.D. [address] [place] [phone] Appointment Radiology [facility] Matthew 2 Tyrell Rodriguez M.D. [address] [place] [phone] [facility] Cirrhos is Alcoholic (HCC) 2 Encounter Hepatology Tyrell Rodriguez M.D. [address] [place] [phone] Anesthesia Event Gastroenterology and Rl, 2 Hepatology Ervin Burgos M.D. [address] [place] [address] [phone] Surgery Gastroenterology and [facility] ESOPHAG OGASTRODUODENOSCOPY 2 Hepatology Tyrell Rodriguez M.D. [address] [place] [phone] Scheduled Procedures Name Priority Associated Diagnoses Date/Time ESOPHAGOGASTRODUODENOSCOPY Cirrhosis Alc oholic (HCC) 03/20/2022 8:45 AM SYSTEMS INTEGRATION ADVISOR Hypertension Portal (HCC) documented as of this encounter Visit Diagnoses Diagnosis Cirrhosis Alcoholic (HCC) Abnormal Liver Function Test Ascites Pretransplant Recipient Evaluation Exam Preoperative Exam Cirrhosis Alcoholic (HCC) Cirrhosis Alcoholic (HCC) Hypertension Portal (HCC) documented in this encounter Care Teams Belt Sewer Relationship Specialty Start Date End Date Elsewhere, Pcp PCP - General Family Medicine 03/10/20 11/30/21 [facility] [place] [facility] 08/25/21 Ervin Schroeder MD Referring Provider Family Medicine 03/24/[address] [place] [address] documented as of this encounter
--- OUTSIDE RECORDS SUMMARY | 2022-02-14 22:08 | XMS_ITS | Encounter Summary ---
:1990 Author Organization [facility] Address [address] [place] [address] Care Team Providers Name Role Phone Elsewhere, Pcp Primary Care Provider Unavailable Reason for Visit Transplant (Routine) - Closed Specialty Diagnoses / Procedures Referred By Contact Refer red To Contact Transplant Surgery / Diagnoses Cirrhosis Alcoholic (HCC) Abnormal Liver Function Test Ascites Pretransplant Recipient Evaluation Exam Preoperative Exam Warren Hernández, [facility] Transplant M.D., M.P.H. [address] [place] [address] Referral ID Status Reason Start Date Expiration Date Visits Requ ested Visits Authorized [id number] Closed 08/25/2021 08/25/2022 1 1 Encounter Details Date Type Department Care Team Description 10/02/2021 Comprehensive Visit Ramirez Adler, Cirrhosis Alcoholic (HCC); Center for Migue Llanes, Abnormal Liver Function Test; Transplantation and M.D. Ascites; Clinical Regeneration [address] [place] [address] Pretransplant Recipient Evaluation Exam; in [place], [place]am [place] [phone] [place] [address] [place], [place] (Work) [phone] Social History Tobacco Use Types Packs/Day Years [...] you attend buddhist or Patient refused 2021 religion services? 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 [address] [place] [phone] Appointment Gastroenterology and Adrianne, 2 Hepatology Yue Burciaga M.D. [address] [place] [phone] Virtual Visit Transplant Matthew Jerome 2 YTyrell M.D. [address] [place] [address] [phone] Office Visit Gastroenterology and [facility] 2 Hepatology Tyrell Rodriguez M.D. [address] [place] [phone] Appointment Radiology [facility] Matthew 2 Tyrell Rodriguez M.D. [address] [place] [phone] [facility] Gastroenterology and [facility] Cirrhos is Alcoholic (HCC) 2 Encounter Hepatology Tyrell Rodriguez M.D. [address] [place] [phone] Anesthesia Event Gastroenterology and Rl, 2 Hepatology Ervin Burgos M.D. [address] [place] [address] [phone] Surgery Gastroenterology and [facility] ESOPHAG OGASTRODUODENOSCOPY 2 Hepatology Tyrell Rodriguez M.D. 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 Hypertension Portal (HCC) documented as of this encounter Visit Diagnoses Diagnosis Cirrhosis Alcoholic (HCC) Abnormal Liver Function Test Ascites Pretransplant Recipient Evaluation Exam Preoperative Exam Cirrhosis Alcoholic (HCC) Cirrhosis Alcoholic (HCC) Hypertension Portal (HCC) documented in this encounter Care Teams Meter Engineer Relationship Specialty Start Date End Date Elsewhere, Pcp PCP - General Family Medicine 03/10/20 11/30/21 [facility] [place] [facility] 08/25/21 Ervin Schroeder MD Referring Provider Family Medicine 03/24/[address] [place] [address] documented as of this encounter
--- OUTSIDE RECORDS SUMMARY | 2022-02-14 22:08 | XMS_ITS | Encounter Summary ---
:1990 Author Organization [facility] Address [address] [place] [address] Care Team Providers Name Role Phone Elsewhere, Pcp Primary Care Provider Unavailable Reason for Referral Outpatient (Routine) - Closed Specialty Diagnoses / Procedures Referred By Contact Refer brianda To Contact Nicotine Dependence Jessy Crain M.A., C.T.T.S. [address] [place] [address] Referral ID Status Reason Start Date Expiration Date Visits Requ ested Visits Authorized [id number] Closed 10/01/2021 10/01/2022 1 1 Scheduling Instructions [...] Recipient Evaluation Exam Preoperative Exam Warren Hernández, [facility] Nicotine Dependence Lilian, M.P.H. [address] [place] [address] Referral ID Status Reason Start Date Expiration Date Visits Requ ested Visits Authorized [id number] Closed 08/25/2021 08/25/2022 1 1 Encounter Details Date Type Department Care Team Description 10/01/2021 Clinical Support Department of Elier Hernández M.D., M.P.H. [address] [place], [place] [phone] Nicotine Dependence Cigarettes (Primary Dx); Nicotine Jessy Crain M.A., C.T.T.S. [address] [place] [phone] Cirrhosis Alcoholic (HCC); Dependence, Gonda Abnormal L iver Function Test; Building, in Ascites; [place], Pretransplant R ecipient Evaluation Exam; [place] Preoperative Exam [address] [place] [phone] Social History Tobacco Use Types Packs/Day Years [...] you attend caodaism or Patient refused 2021 lutheran services? 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 - 10/01/2021 10:00 AM CDT SUBJECTIVE CHIEF COMPLAINT / REASON FOR VISIT Tobacco use disorder HISTORY OF PRESENT ILLNESS Catia Carias is a 31 y.o. female who was seen at [place] [address] and is being evaluated for Tobacco Use [...] provided the patient with educational materials and [facility] contact information. We have scheduled a follow-up [...] Appointment Radiology LuisNew abdular 2 YTyrell M.D. [address] [place] [address] [phone] Appointment Gastroenterology demian Silver, 2 Hepatology Yue Burciaga M.D. [address] [place] [phone] Virtual Visit Transplant LuisMatthew abdul 2 YTyrell M.D. [address] [place] [address] [phone] Office Visit Gastroenterology and LuisMatthew abdul 2 Hepatology Tyrell Rodriguez M.D. [address] [place] [address] [phone] Appointment Radiology LuisMatthew abdul 2 YJoshuaBSumaBLilian Bedolla [address] [place] [phone] Hospital Gastroenterology and Matthew Jerome Cirrhos is Alcoholic (HCC) 2 Encounter Hepatology Tyrell Rodriguez M.D. [address] [place] [address] [phone] Anesthesia Event Gastroenterology and Rl, 2 Hepatology Ervin Burgos M.D. [address] [place] [phone] Surgery Gastroenterology and Mousa, Matthew ESOPHAG OGASTRODUODENOSCOPY 2 Hepatology Tyrell Rodriguez M.D. [address] [place] [phone] Scheduled Procedures Name Priority Associated Diagnoses Date/Time ESOPHAGOGASTRODUODENOSCOPY Cirrhosis Alc oholic (HCC) 03/20/2022 8:45 AM CHARGE MASTER COORDINATOR Hypertension Portal (HCC) Scheduled Referrals Name Type [...] (HCC) documented in this encounter Care Teams Manager Fire Relationship Specialty Start Date End Date Elsewhere, Pcp PCP - General Family Medicine 03/10/20 11/30/21 [facility] [place] lab 08/25/21 Ervin Schroeder MD Referring Provider Family Medicine 03/24/[address] [place] [address] documented as of this encounter
--- OUTSIDE RECORDS SUMMARY | 2022-02-14 22:08 | XMS_ITS | Encounter Summary ---
:1990 Author Organization [facility] Address [address] [place] [address] Care Team Providers Name Role Phone Elsewhere, Pcp Primary Care Provider Unavailable Reason for Visit Transplant (Routine) - Closed Specialty Diagnoses / Procedures Referred By Contact Refer red To Contact Transplant Surgery / Diagnoses Cirrhosis Alcoholic (HCC) Abnormal Liver Function Test Ascites Pretransplant Recipient Evaluation Exam Preoperative Exam Warren Hernández, [facility] Transplant Lilian, M.P.H. [address] [place] [address] Referral ID Status Reason Start Date Expiration Date Visits Requ ested Visits Authorized [id number] Closed 08/25/2021 08/25/2022 1 1 Encounter Details Date Type Department Care Team Description 09/30/2021 Comprehensive Visit Warren Middleton M.D., M.P.H. [address] [place] [address] Cirrhosis Alcoholic (HCC); Luis [facility] [place] Milagros Navarro M.S., RDN, LD [address] [place] [phone] Abnormal Liver Function Test; Transplantation and Ascites; Clinical Regeneration Pretra nsplant Recipient Evaluation Exam; in [place], [facility] E xam [place] [address] [place] [address] Social History Tobacco Use Types Packs/Day Years [...] you attend temple or Patient refused 2021 restoration services? 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 HS snack: lemon/napakiak, apple, a few crackers or protein bar [...] 2 Appointment Radiology Matthew Jerome 2 Joshua RodriguezBSumaBGraeme, Lilian [address] [place] [phone] Appointment Gastroenterology demian Silver, 2 Hepatology Yue Burciaga M.D. [address] [place] [phone] Virtual Visit Transplant LuisNew abdular 2 Joshua RodriguezBSumaBLilian Bedolla [facility] [place] [phone] Office Visit Gastroenterdina and Queenie Matthew 2 Hepatology Vik RodriguezBLilian Bedolla [address] [place] [address] [phone] Appointment Radiology Queenie Matthew 2 Tyrell Rodriguez M.D. [address] [place] [address] [phone] Hospital Gastroenterology and Njchantell Matthew Cirrhos is Alcoholic (HCC) 2 Encounter Hepatology Tyrell Rodriguez M.D. [address] [place] [address] [phone] Anesthesia Event Gastroenterology and Rl, 2 Hepatology Ervin Burgos M.D. [address] [place] [address] [phone] Surgery Gastroenterology and [facility] ESOPHAG OGASTRODUODENOSCOPY 2 Hepatology Tyrell Rodriguez M.D. [address] [place] [address] [phone] Scheduled Procedures Name Priority Associated Diagnoses Date/Time ESOPHAGOGASTRODUODENOSCOPY Cirrhosis Alc oholic (HCC) 03/20/2022 8:45 AM DE ICER ELEMENT WINDER Hypertension Portal (HCC) documented as of this encounter Visit Diagnoses Diagnosis Cirrhosis Alcoholic (HCC) Abnormal Liver Function Test Ascites Pretransplant Recipient Evaluation Exam Preoperative Exam Cirrhosis Alcoholic (HCC) Cirrhosis Alcoholic (HCC) Hypertension Portal (HCC) documented in this encounter Care Teams Credit Rating Inspector Relationship Specialty Start Date End Date Elsewhere, Pcp PCP - General Family Medicine 03/10/20 11/30/21 [facility] [place] lab 08/25/21 Ervin Schroeder MD Referring Provider Family Medicine 03/24/[address] [place] [address] documented as of this encounter
--- OUTSIDE RECORDS SUMMARY | 2022-02-14 22:08 | XMS_ITS | Encounter Summary ---
:1990 Author Organization [facility] Address [address] [place] [address] Care Team Providers Name Role Phone Elsewhere, Pcp Primary Care Provider Unavailable Reason for Visit Reason Comments [facility] MED REQUEST Encounter Details Date Type Department Care Team Description 10/01/2021 Clinical Communication Department of KACY Crain MED REQUEST Nicotine Jessy Gannon M.A., Dependence, C.T.T.S. [facility], [address] [place] [address] in [facility] [phone] [place] [address] [place], [place] (Work) [phone] Social History Tobacco Use Types Packs/Day Years [...] you attend congregational or Patient refused 2021 uatsdin services? 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 - 10/01/2021 12:13 PM CDT 2 mg MINI lozenges with refills, flavored [facility] in [place] documented in this encounter Plan of Treatment Upcoming Encounters Date Type Specialty Care Team Description Telemedicine Transplant 2 Appointment Radiology Matthew Jerome 2 YTyrell M.D. [address] [place] [phone] Appointment Gastroenterology demian Silver, 2 Hepatology Yue Burciaga M.D. [address] [place] [phone] Virtual Visit Transplant Matthew Jerome 2 Tyrell Rodriguez M.D. [address] [place] [phone] Office Visit Gastroenterology and Matthew Jerome 2 Hepatology Tyrell Rodriguez M.D. [address] [place] [phone] Appointment Radiology LuisMatthew abdul 2 Tyrell Rodriguez M.D. [address] [place] [phone] Hospital Gastroenterology and Matthew Jerome Cirrhos is Alcoholic (HCC) 2 Encounter Hepatology Tyrell Rodriguez M.D. [address] [place] [phone] Anesthesia Event Gastroenterology and Rl, 2 Hepatology Ervin Burgos M.D. [address] [place] [phone] Surgery Gastroenterology and Mtathew Jerome ESOPHAG OGASTRODUODENOSCOPY 2 Hepatology Joshua RodriguezBSumaBLilian Bedolla [address] [place] [phone] Scheduled Procedures Name Priority Associated Diagnoses Date/Time ESOPHAGOGASTRODUODENOSCOPY Cirrhosis Alc oholic (HCC) 03/20/2022 8:45 AM SHELL SHOP SUPERVISOR Hypertension Portal (HCC) documented as of this encounter Visit Diagnoses Not on filedocumented in this encounter Care Teams Gaming Cage Worker Relationship Specialty Start Date End Date Elsewhere, Pcp PCP - General Family Medicine 03/10/20 11/30/21 [facility] 08/25/21 Ervin Schroeder MD Referring Provider Family Medicine 03/24/[address] [place] [address] documented as of this encounter
--- OUTSIDE RECORDS SUMMARY | 2022-02-14 22:08 | XMS_ITS | Encounter Summary ---
:1990 Author Organization [facility] Address [address] [place] [address] Care Team Providers Name Role Phone Elsewhere, Pcp Primary Care Provider Unavailable Reason for Visit Transplant (Routine) - Closed Specialty Diagnoses / Procedures Referred By Contact Refer red To Contact Transplant Surgery / Diagnoses Cirrhosis Alcoholic (HCC) Abnormal Liver Function Test Ascites Pretransplant Recipient Evaluation Exam Preoperative Exam Warren Hernández, [facility] Transplant M.DSuma, M.P.H. [address] [place] [address] Referral ID Status Reason Start Date Expiration Date Visits Requ ested Visits Authorized [id number] Closed 08/25/2021 08/25/2022 1 1 Encounter Details Date Type Department Care Team Description 10/02/2021 Comprehensive Visit Ramirez Barajas, Cirrhosis Alcoholic (HCC); [facility], Abnormal Liver Function Test; Transplantation and MJules, Ph.D. Ascites; Clinical Regeneration [address] [place] nsplant Recipient Evaluation Exam; in [facility] Preoperative Exam [address] [facility] [address] [phone] Social History Tobacco Use Types Packs/Day Years [...] you attend congregational or Patient refused 2021 methodist services? 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 - 10/02/2021 1:00 PM CDT SUBJECTIVE HISTORY OF PRESENT ILLNESS Ms. Carias is a 31-year-old woman from [place], [place], with alcohol- associated cirrhosis. Her disease was diagnosed in fall when she fell ill and was subsequently hospitalized. It appears that several months prior to that, she started to feel more fatigued and perhaps developed encephalopathy. She quit working. She also noticed that she was getting jaundiced in March of 2021. She was hospitalized in [place] and diagnosed with cirrhosis. This is secondary [...] Dinh M.D., Ph.D. CT CT Job ID: [id number]/mc documented in this encounter Plan of Treatment Upcoming Encounters Date Type Specialty Care Team Description Telemedicine Transplant 2 Appointment Radiology Matthew Jerome 2 Y, M.B.BLilian Bedolla [address] [place] [phone] Appointment Gastroenterology and Adrianne, 2 Hepatology Yue Burciaga M.D. [address] [place] [phone] Virtual Visit Transplant Matthew Jerome 2 Tyrell Rodriguez M.D. [address] [place] [phone] Office Visit Gastroenterology and [place] 2 Hepatology Tyrell Rodriguez M.D. [address] [place] [phone] Appointment Radiology Matthew Jerome 2 Joshua RodriguezBSumaBLilian Bedolla [address] [place] [phone] [facility] Gastroenterology and Matthew Jerome Cirrhos is Alcoholic (HCC) 2 Encounter Hepatology Joshua RodriguezBSumaBLilian Bedolla [address] [place] [phone] Anesthesia Event Gastroenterology and Rl, 2 Hepatology Ervin Burgos M.D. [address] [place] [phone] Surgery Gastroenterology and Matthew Jerome ESOPHAG OGASTRODUODENOSCOPY 2 Hepatology Joshua RodriguezB.BGraeme, Lilian [address] [place] [phone] Scheduled Procedures Name Priority Associated Diagnoses Date/Time ESOPHAGOGASTRODUODENOSCOPY Cirrhosis Alc oholic (HCC) 03/20/2022 8:45 AM CHILDCARE ATTENDANT Hypertension Portal (HCC) documented as of this encounter Visit Diagnoses Diagnosis Cirrhosis Alcoholic (HCC) Abnormal Liver Function Test Ascites Pretransplant Recipient Evaluation Exam Preoperative Exam Cirrhosis Alcoholic (HCC) Cirrhosis Alcoholic (HCC) Hypertension Portal (HCC) documented in this encounter Care Teams All Terrain Vehicle Technician Relationship Specialty Start Date End Date Elsewhere, Pcp PCP - General Family Medicine 03/10/20 11/30/21 [facility] [place] lab 08/25/21 Ervin Schroeder MD Referring Provider Family Medicine 03/24/[address] [place] [address] documented as of this encounter
--- OUTSIDE RECORDS SUMMARY | 2022-02-14 22:09 | XMS_ITS | Encounter Summary ---
:1990 Author Organization [facility] Address [address] [place] [address] Care Team Providers Name Role Phone Elsewhere, Pcp Primary Care Provider Unavailable Reason for Visit Reason Comments Patient Education Encounter Details Date Type Department Care Team Description 09/03/2021 Clinical Communication Department of Loreta Vazquez ent Education Infusion Therapy in M, R.N. [place], [place] [address] [place] [address] Social History Tobacco Use Types [...] you attend confucianism or Patient refused 2021 episcopal services? 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 [address] [place] [phone] Virtual Visit Transplant LuischantellMatthew 2 Vik RodriguezBLilian Bedolla [address] [place] [phone] Office Visit Gastroenterology and Queenie Matthew 2 Hepatology Vik RodriguezBLilian Bedolla [address] [place] [phone] Appointment Radiology Queenie Matthew 2 YTyrell M.D. [address] [place] [phone] Hospital Gastroenterology and [facility] Matthew Cirrhos is Alcoholic (HCC) 2 Encounter Hepatology Tyrell Rodriguez M.D. [address] [place] [phone] Anesthesia Event Gastroenterology and [facility], 2 Hepatology Ervin Burgos M.D. [address] [place] [address] [phone] Surgery Gastroenterology and [facility] ESOPHAG OGASTRODUODENOSCOPY 2 Hepatology Tyrell Rodriguez M.D. [address] [place] [phone] Scheduled Procedures Name Priority Associated Diagnoses Date/Time ESOPHAGOGASTRODUODENOSCOPY Cirrhosis Alc oholic (HCC) 03/20/2022 8:[address] ENGINEERING TEACHER Hypertension Portal (HCC) documented as of this encounter Visit Diagnoses Not on filedocumented in this encounter Additional Health Concerns Infection Onset Date Last Indicated Resolved Time COVID19 08/29/2021 08/29/2021 09/18/2021 8:31 AM CDT documented as of this encounter Care Teams Principal Scientist Relationship Specialty Start Date End Date Elsewhere, Pcp PCP - General Family Medicine 03/10/20 11/30/21 [facility] [place] lab 08/25/21 Ervin Schroeder MD Referring Provider Family Medicine 03/24/[address] [place] [address] documented as of this encounter
--- OUTSIDE RECORDS SUMMARY | 2022-02-14 22:09 | XMS_ITS | Encounter Summary ---
:1990 Author Organization [facility] Address [address] [place] [address] Care Team Providers Name Role Phone Elsewhere, Pcp Primary Care Provider Unavailable Encounter Details Date Type Department Care Team Description 09/12/2021 Clinical Communication Department of Matthew Jerome Gastroenterology in M.BJhoan, Joshua Kruger. [address] [phone] Social History Tobacco Use Types Packs/Day Years [...] you attend adventism or Patient refused 2021 sikhism services? 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 - 09/15/2021 9:47 PM CDT Thanks so much Olga Telephone Encounter - Priscilla Castorena - 09/12/2021 12:02 PM CDT Patient was supposed to have an appointment for PMR CONS PT at [facility]. The appt has been cancelleddue to [...] Radiology Matthew Jerome 2 Tyrell Rodriguez M.D. [address] [place] [address] [phone] Appointment Gastroenterology demian Silver 2 Hepatology Yue Burciaga M.D. [address] [place] [phone] Virtual Visit Transplant Matthew Jerome 2 Tyrell Rodriguez M.D. [address] [place] [phone] Office Visit Gastroenterology and Matthew Jerome 2 Hepatology Tyrell Rodriguez M.D. [address] [place] [address] [phone] Appointment Radiology Matthew Jerome 2 YTyrell M.D. [address] [place] [phone] Hospital Gastroenterology and Matthew Jerome Cirrhos is Alcoholic (HCC) 2 Encounter Hepatology Vik RodriguezBLilian Bedolla [address] [place] [phone] Anesthesia Event Gastroenterology and Rl, Olinda Hepatology Ervin Burgos M.D. [address] [place] [phone] Surgery Gastroenterology and Matthew Jerome ESOPHAG OGASTRODUODENOSCOPY 2 Hepatology Tyrell Rodriguez M.D. [address] [place] [phone] Scheduled Procedures Name Priority Associated Diagnoses Date/Time ESOPHAGOGASTRODUODENOSCOPY Cirrhosis Alc oholic (HCC) 03/20/2022 8:45 AM PAYMENT COLLECTOR Hypertension Portal (HCC) documented as of this encounter Visit Diagnoses Diagnosis Edema Leg - Primary Cirrhosis Alcoholic (HCC) Cirrhosis Alcoholic (HCC) Hypertension Portal (HCC) documented in this encounter Additional Health Concerns Infection Onset Date Last Indicated Resolved Time COVID19 08/29/2021 08/29/2021 09/18/2021 8:31 AM CDT documented as of this encounter Care Teams Vocational Auto Body Instructor Relationship Specialty Start Date End Date Elsewhere, Pcp PCP - General Family Medicine 03/10/20 11/30/21 [facility] [place] lab 08/25/21 Ervin Schroeder MD Referring Provider Family Medicine 03/24/[address] [place] [address] documented as of this encounter
--- OUTSIDE RECORDS SUMMARY | 2022-02-14 22:09 | XMS_ITS | Encounter Summary ---
:1990 Author Organization [facility] Address [address] [place] [address] Care Team Providers Name Role Phone Elsewhere, Pcp Primary Care Provider Unavailable Reason for Visit Reason Comments Medication Question Encounter Details Date Type Department Care Team Description 09/18/2021 Clinical Department of Aamir Spicer Gastroenterology in Felicita PatricaSanty [place], [place] L.P.N. [address] [facility] [phone] [place] [phone] 2 (Work) [phone] Social History Tobacco Use Types Packs/Day Years [...] you attend muslim or Patient refused 2021 jewish services? 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 Telephone Encounter - Felicita Spicer L.P.NSuma - 09/18/2021 8:08 AM CDT Patient called [...] Radiology Matthew Jerome 2 Vik RodriguezBLilian Bedolla [address] [place] [phone] Appointment Gastroenterology demian Silver 2 Hepatology Yue Burciaga M.D. [address] [place] [phone] Virtual Visit Transplant Matthew Jerome [address] [place] [address] [phone] Office Visit Gastroenterology and Matthew Jerome 2 Hepatology Vik RodriguezBLilian Bedolla [address] [place] [phone] Appointment Radiology Matthew Jerome 2 YJoshuaBSumaBLilian Bedolla [address] [place] [phone] Hospital Gastroenterology and Queenie Matthew Cirrhos is Alcoholic (HCC) 2 Encounter Hepatology Joshua RodriguezB.B.Lilian Stockton [address] [place] [phone] Anesthesia Event Gastroenterology and Rl, 2 Hepatology Ervin Burgos M.D. [address] [place] [phone] Surgery Gastroenterology and Mousa, Matthew ESOPHAG OGASTRODUODENOSCOPY 2 Hepatology Tyrell Rodriguez M.D. [address] [place] [phone] Scheduled Procedures Name Priority Associated Diagnoses Date/Time ESOPHAGOGASTRODUODENOSCOPY Cirrhosis Alc oholic (HCC) 03/20/2022 8:45 AM COOK HELPER VEGETABLE Hypertension Portal (HCC) documented as of this encounter Visit Diagnoses Diagnosis Anxiety - Primary Cirrhosis Alcoholic (HCC) Cirrhosis Alcoholic (HCC) Hypertension Portal (HCC) documented in this encounter Additional Health Concerns Infection Onset Date Last Indicated Resolved Time COVID19 08/29/2021 08/29/2021 09/18/2021 8:31 AM CDT documented as of this encounter Care Teams Calculating Machine Mechanic Relationship Specialty Start Date End Date Elsewhere, Pcp PCP - General Family Medicine 03/10/20 11/30/21 [facility] [place] lab 08/25/21 Ervin Schroeder MD Referring Provider Family Medicine 03/24/[address] [place] [phone] documented as of this encounter
--- OUTSIDE RECORDS SUMMARY | 2022-02-14 22:09 | XMS_ITS | Encounter Summary ---
:1990 Author Organization [facility] Address [address] [place] [address] Care Team Providers Name Role Phone Elsewhere, Pcp Primary Care Provider Unavailable Reason for Visit Reason Comments Hepatobiliary Encounter Details Date Type Department Care Team Description 09/19/2021 Clinical Communication Division of Edgar, Hepat obiliary Gastroenterology in [place], [place] Lilian, M.P.H. [address] [facility] [address] [place] [phone] [place], [place] [phone] Social History Tobacco Use Types Packs/Day Years [...] attend latter day or Patient refused 2021 hindu services? 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 - 09/22/2021 9:55 AM CDT SUBJECTIVE CHIEF COMPLAINT / REASON FOR CALL Hepatobiliary, CT abd, anxiety ASSESSMENT HB nurse phoned patient to discuss preference for CT abd at [place]. She was prescribed Ativan 1 mg to [...] is away today; [facility] PLAN Anxiety related to claustrophobia related to CT abd scheduled for 14:45 today at [place]. Disposition/Recommendation: notified provider and awaiting recommendations. Information/Education: patient/caller able to teach back. Caller agreeable to plan of care: yes. The following references were used: nursing clinical judgement. 10:30 Addendum: Patient informed that [facility] (per Dr. Ramirez Driscoll) says she has not been seen here in [place] yet so does not feel comfortable prescribing a controlled substance for a procedure that usually is not performed with much sedation. She should contact [facility] or her local PCPif she seeks additional sedation for her CT anxiety. She says she will try to complete the test withthe Ativan, as able. Telephone Encounter - Felicita Spicer L.PSumaN. - 09/22/2021 9:22 AM CDT Received a message from the patient stating she had not yet heard back regarding sedation for today's CT scan. Upon chart review she had called and discussed this with [facility] GI Department. Nutrient Management Specialist also explained that changed of sedation type may result in a change of date/time of CT scan and she likely would not be able to still have CT done today in [place] with a change of sedation type from oral Ativan. Patient expressed she would maybe be willing to try the CT scan as ordered. She will call and follow up with [facility] GI. documented in this encounter Plan of Treatment Upcoming Encounters Date Type Specialty Care Team Description Telemedicine Transplant 2 Appointment Radiology Matthew Jerome 2 YTyrell M.D. [address] [place] [phone] Appointment Gastroenterology and Adrianne, 2 Hepatology Yue Burciaga M.D. [address] [place] [phone] Virtual Visit Transplant Matthew Jerome 2 YTyrell M.D. [address] [place] [address] [phone] Office Visit Gastroenterology and Queenie Matthew 2 Hepatology Tyrell Rodriguez M.D. [address] [place] [address] [phone] Appointment Radiology Vachantell Matthew 2 YTyrell, Lilian [address] [place] [phone] Hospital Gastroenterology and [facility] Matthew Cirrhos is Alcoholic (HCC) 2 Encounter Hepatology Tyrell Rodriguez M.D. [address] [place] [phone] Anesthesia Event Gastroenterology and Rl, 2 Hepatology Ervin Burgos M.D. [address] [place] [address] [phone] Surgery Gastroenterology and Queenie Matthew ESOPHAG OGASTRODUODENOSCOPY 2 Hepatology Tyrell Rodriguez M.D. [address] [place] [address] [phone] Scheduled Procedures Name Priority Associated Diagnoses Date/Time ESOPHAGOGASTRODUODENOSCOPY Cirrhosis Alc oholic (HCC) 03/20/2022 8:45 AM PLACING JUDGE Hypertension Portal (HCC) documented as of this encounter Visit Diagnoses Diagnosis Anxiety - Primary Personal History Of Failed Moderate Jo tion Cirrhosis Alcoholic (HCC) Cirrhosis Alcoholic (HCC) Hypertension Portal (HCC) documented in this encounter Care Teams Buyer Broker Relationship Specialty Start Date End Date Elsewhere, Pcp PCP - General Family Medicine 03/10/20 11/30/21 [facility] [place] lab 08/25/21 Ervin Schroeder MD Referring Provider Family Medicine 03/24/211979 [address] [place] [address] documented as of this encounter
--- OUTSIDE RECORDS SUMMARY | 2022-02-14 22:09 | XMS_ITS | Encounter Summary ---
:1990 Author Organization [facility] Address [address] [place] [address] Care Team Providers Name Role Phone Elsewhere, Pcp Primary Care Provider Unavailable Reason for Referral Outpatient (Routine) - Closed Specialty Diagnoses / Procedures Referred By Contact Refer red To Contact Diagnoses Fatty Liver Failure Liver (HCC) Cirrhosis Alcoholic (HCC) Preoperative Exam Ascites Abnormal Liver Function Test Warren Hernández M.D., [facility] Procedures Six Minute Walk M.P.H. [address] [place] [address] Referral ID Status Reason Start Date Expiration Date Visits Requ ested Visits Authorized [id number] Closed 09/08/2021 09/08/2022 1 1 Reason for Visit Outpatient (Routine) - Closed Specialty Diagnoses / Procedures Referred By Contact Refer red To Contact Diagnoses Fatty Liver Failure Liver (HCC) Cirrhosis Alcoholic (HCC) Preoperative Exam Ascites Abnormal Liver Function Test Warren Hernández M.D., [facility] Procedures Six Minute Walk M.P.H. [address] [place] [address] Referral ID Status Reason Start Date Expiration Date Visits Requ ested Visits Authorized [id number] Closed 09/08/2021 09/08/2022 1 1 Encounter Details Date Type Department Care Team Description 09/24/2021 Hospital Encounter Department of [place], Fatty Li fred; Pulmonary Warren A, Failure Liver ( HCC); Rehabilitation Lilian, M.P.H. Cirrhosis Alcoholic (HCC); Edgard Holloway [address] [facility] Preoperative Exam; [address] [place], [place] Ascites; [place] [phone] Abnormal Liver Function Test [phone] Social History Tobacco Use Types Packs/Day Years [...] you attend yarsani or Patient refused 2021 yarsanism services? 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 [address] [place] [phone] Virtual Visit Transplant Matthew Jerome 2 Joshua RodriguezBSumaBLilian Bedolla [address] [place] [phone] Office Visit Gastroenterology and Matthew Jerome 2 Hepatology Joshua RodriguezBSumaBSumaSLilian Moise [address] [place] [phone] Appointment Radiology Matthew Jerome 2 Y M.B.B.Lilian Stoctkon [address] [place] [address] [phone] Hospital Gastroenterology and Matthew Jerome Cirrhos is Alcoholic (HCC) 2 Encounter Hepatology Joshua RodriguezBSumaBLilian Bedolla [address] [place] [address] [phone] Anesthesia Event Gastroenterology and Rl, 2 Hepatology Ervin Burgos M.D. [address] [place] [phone] Surgery Gastroenterology and Mousa, Matthew ESOPHAG OGASTRODUODENOSCOPY 2 Hepatology Tyrell Rodriguez M.D. [address] [place] [phone] Scheduled Procedures Name Priority Associated Diagnoses Date/Time ESOPHAGOGASTRODUODENOSCOPY Cirrhosis Alc oholic (HCC) 03/20/2022 8:45 AM ENVIRONMENTAL SCIENTISTS Hypertension Portal (HCC) documented as of this [...] (HCC) documented in this encounter Care Teams Paper Rewinder Operator Relationship Specialty Start Date End Date Elsewhere, Pcp PCP - General Family Medicine 03/10/20 11/30/21 [facility] [place] lab 08/25/21 Ervin Schroeder MD Referring Provider Family Medicine 03/24/[address] [place] [address] documented as of this encounter
--- OUTSIDE RECORDS SUMMARY | 2022-02-14 22:09 | XMS_ITS | Encounter Summary ---
:1990 Author Organization [facility] Address [address] [place] [address] Care Team Providers Name Role Phone Elsewhere, Pcp Primary Care Provider Unavailable Reason for Referral MRI/CAT/PET Scan (Routine) - Closed Specialty Diagnoses / Procedures Referred By Contact Refer red To Contact Radiology Diagnoses Fatty Liver Failure Liver (HCC) Cirrhosis Alcoholic (HCC) Preoperative Exam Ascites Abnormal Liver Function Test [place] Hernández M.D., [facility] Procedures CT Abdomen without and with IV Contrast M.P.H. [address] [place] [address] Referral ID Status Reason Start Date Expiration Date Visits Requ ested Visits Authorized [id number] Closed 09/08/2021 09/08/2022 1 1 Reason for Visit MRI/CAT/PET Scan (Routine) - Closed Specialty Diagnoses / Procedures Referred By Contact Refer red To Contact Radiology Diagnoses Fatty Liver Failure Liver (HCC) Cirrhosis Alcoholic (HCC) Preoperative Exam Ascites Abnormal Liver Function Test [place] Hernández M.D., [facility] Region Procedures CT Abdomen without and with IV Contrast M.P.H. [address] [place] [address] Referral ID Status Reason Start Date Expiration Date Visits Requ ested Visits Authorized [id number] Closed 09/08/2021 09/08/2022 1 1 Encounter Details Date Type Department Care Team Description 09/22/2021 Hospital Encounter Department of eDena Hernández Li fred; Radiology, Lena [place] Schaefer M.D., Greg segal Liver (HCC); [facility], in M.P.H. Cirrhosis Alcoholic (HCC); [place], [place] [address] [facility] Preoperative Exam; [address] [place], [place] Ascites; [place] [address] Abnormal Liver Function Test [phone] Social History [...] you attend scientologist or Patient refused 2021 hindu services? 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 [address] [place] [address] [phone] Appointment Gastroenterology demian Silver 2 Hepatology Yue Segal M.D. [address] [place] [phone] Virtual Visit Transplant Matthew Jerome 2 Tyrell Rodriguez M.D. [address] [place] [phone] Office Visit Gastroenterology and Matthew Jerome 2 Hepatology Tyrell Rodriguez M.D. [address] [place] [address] [phone] Appointment Radiology Matthew Jerome 2 YTyrell M.D. [address] [place] [address] [phone] Hospital Gastroenterology and Queenie Matthew Cirrhos is Alcoholic (HCC) 2 Encounter Hepatology Vik RodriguezBLilian Bedolla [address] [place] [address] [phone] Anesthesia Event Gastroenterology and Rl, 2 Hepatology Ervin Burgos M.D. [address] [place] [address] [phone] Surgery Gastroenterology and Matthew Jerome ESOPHAG OGASTRODUODENOSCOPY 2 Hepatology Tyrell Rodriguez M.D. [address] [place] [phone] Scheduled Procedures Name Priority Associated Diagnoses Date/Time ESOPHAGOGASTRODUODENOSCOPY Cirrhosis Alc oholic (HCC) 03/20/2022 8:45 AM RELATIONSHIP MANAGER Hypertension Portal (HCC) documented as of [...] dose documented in this encounter Care Teams Park Naturalist Relationship Specialty Start Date End Date Elsewhere, Pcp PCP - General Family Medicine 03/10/20 11/30/21 [facility] [place] [facility] 08/25/21 Ervin Schroeder MD Referring Provider Family Medicine 03/24/[address] [facility] [facility] [address] [place], [place] [phone] documented as of this encounter
--- OUTSIDE RECORDS SUMMARY | 2022-02-14 22:09 | XMS_ITS | Encounter Summary ---
:1990 Author Organization [facility] Address [address] [place] [address] Care Team Providers Name Role Phone Elsewhere, Pcp Primary Care Provider Unavailable Reason for Visit Reason Comments Appointment PMR PT Encounter Details Date Type Department Care Team Description 09/15/2021 Clinical Department of Matthew Jerome Appointment (P MR Communication Gastroenterology in Y, M.B.B.S., [facility] [address] [facility] 10[address] [place] [address] [place] [phone] Social History Tobacco Use Types Packs/Day Years [...] you attend hindu or Patient refused 2021 yarsanism services? 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 Thank you in advance Telephone Encounter - Andreas Lopez - 09/15/2021 11:[address] Queenie Henson could you please place an order for Alma for PMR PT appt. Pt would like to see in there is anything available while she is here for LTE. Thank you in advance documented in this encounter Plan of Treatment Upcoming Encounters Date Type Specialty Care Team Description Telemedicine Transplant 2 Appointment Radiology Matthew Jerome 2 Y, KishoreLilian Staples [address] [place] [phone] Appointment Gastroenterology and Adrianne, 2 Hepatology Yue Burciaga M.D. [address] [place] [phone] Virtual Visit Transplant Matthew Jerome 2 Tyrell Rodriguez M.D. [address] [place] [phone] Office Visit Gastroenterology and Matthew Jerome 2 Hepatology Tyrell Rdoriguez M.D. [address] [place] [phone] Appointment Radiology Matthew Jerome 2 Tyrell Rodriguez M.D. [address] [place] [phone] [facility] Gastroenterology and Luischantell Matthew Cirrhos is Alcoholic (HCC) 2 Encounter Hepatology Tyrell Rodriguez M.D. [address] [place] [phone] Anesthesia Event Gastroenterology and Rl, 2 Hepatology Ervin Burgos M.D. [address] [place] [phone] Surgery Gastroenterology and Luischantell Matthew ESOPHAG OGASTRODUODENOSCOPY 2 Hepatology Vik RodriguezBGraeme, Lilian [address] [place] [phone] Scheduled Procedures Name Priority Associated Diagnoses Date/Time ESOPHAGOGASTRODUODENOSCOPY Cirrhosis Alc oholic (HCC) 03/20/2022 8:45 AM PLASTERER JOURNEYMAN Hypertension Portal (HCC) documented as of this encounter Visit Diagnoses Not on filedocumented in this encounter Additional Health Concerns Infection Onset Date Last Indicated Resolved Time COVID19 08/29/2021 08/29/2021 09/18/2021 8:31 AM CDT documented as of this encounter Care Teams Cultured Marble Products Maker Relationship Specialty Start Date End Date Elsewhere, Pcp PCP - General Family Medicine 03/10/20 11/30/21 [facility] [place] [facility] 08/25/21 Ervin Schroeder MD Referring Provider Family Medicine 03/24/[address] [place] [address] documented as of this encounter
--- OUTSIDE RECORDS SUMMARY | 2022-02-14 22:09 | XMS_ITS | Encounter Summary ---
:1990 Author Organization [facility] Address [address] [place] [address] Care Team Providers Name Role Phone Elsewhere, Pcp Primary Care Provider Unavailable Encounter Details Date Type Department Care Team Description 09/05/2021 Clinical Communication Department of Kerry Naranjo Gastroenterology in [place], [place] C.N.P., M.S.N. 1025 [facility] 1025 [place] [address] [place], [place] [phone] Social History Tobacco Use Types Packs/Day [...] you attend scientologist or Patient refused 2021 jain services? 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 [address] [place] [phone] Appointment Gastroenterology demian Silver 2 Hepatology Yue Burciaga M.D. [address] [place] [phone] Virtual Visit Transplant LuisMatthew abdul 2 YTyrell M.D. [address] [place] [phone] Office Visit Gastroenterology and LuisMatthew abdul 2 Hepatology Tyrell Rodriguez M.D. [address] [place] [address] [phone] Appointment Radiology LuisNew abdular 2 YTyrell M.D. [address] [place] [phone] Hospital Gastroenterology and LuisMatthew abdul Cirrhos is Alcoholic (HCC) 2 Encounter Hepatology Tyrell Rodriguez M.D. [address] [place] [phone] Anesthesia Event Gastroenterology and Rl, 2 Hepatology Ervin Burgos M.D. [address] [place] [phone] Surgery Gastroenterology and Mousa, Matthew ESOPHAG OGASTRODUODENOSCOPY 2 Hepatology Tyrell Rodriguez M.D. 10[address] [place] [phone] Scheduled Procedures Name Priority Associated Diagnoses Date/Time ESOPHAGOGASTRODUODENOSCOPY Cirrhosis Alc oholic (HCC) 03/20/2022 8:45 AM SPIKE DRIVER Hypertension Portal (HCC) documented as of this encounter Results (ABNORMAL) Prothrombin Time (PT) (02/12/2022 10:16 AM CDT) [facility] gist Method Time Signature Prothrombin 30.8 [...] Address City/State/ZIP Code Phon e Number [facility] - [address] [place], [place] [address] [place] [address] [facility] [address] [...] of this encounter Care Teams Room Service Food Service Attendant Relationship Specialty Start Date End Date Elsewhere, Pcp PCP - General Family Medicine 03/10/20 11/30/21 [facility] 08/25/21 Ervin Schroeder MD Referring Provider Family Medicine 03/24/[address] [place] [address] documented as of this encounter
--- OUTSIDE RECORDS SUMMARY | 2022-02-14 22:09 | XMS_ITS | Encounter Summary ---
:1990 Author Organization [facility] Address [address] [place] [address] Care Team Providers Name Role Phone Elsewhere, Pcp Primary Care Provider Unavailable Encounter Details Date Type Department Care Team Description 09/01/2021 Clinical Communication Department of Matthew Jerome Gastroenterology in M.BJhoan, Joshua Kruger. [address] [phone] Social History Tobacco Use Types Packs/Day Years [...] you attend buddhist or Patient refused 2021 mu-ism services? 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 [facility] is wondering if there is a day in which you would see this patient after they have all the testing. documented in this encounter Plan of Treatment Upcoming Encounters Date Type Specialty Care Team Description Telemedicine Transplant 2 Appointment Radiology Matthew Jerome 2 YTyrell M.D. [address] [place] [phone] Appointment Gastroenterology and Adrianne, 2 Hepatology Yue Burciaga M.D. [address] [place] [phone] Virtual Visit Transplant LuisNew abdular 2 Tyrell Rodriguez, Lilian [address] [place] [phone] Office Visit Gastroenterology and Matthew Jerome 2 Hepatology Tyrell Rodriguez M.D. [address] [place] [phone] Appointment Radiology LuisNew abdular 2 Tyrell Rodriguez M.D. [address] [place] [phone] Hospital Gastroenterology and Matthew Jerome Cirrhos is Alcoholic (HCC) 2 Encounter Hepatology Tyrell Rodriguez, Lilian [address] [place] [phone] Anesthesia Event Gastroenterology and Rl, 2 Hepatology Ervin Burgos M.D. [address] [place] [phone] Surgery Gastroenterology and Matthew Jerome ESOPHAG OGASTRODUODENOSCOPY 2 Hepatology Joshua RodriguezBSumaBGraeme, Lilian [address] [place] [phone] Scheduled Procedures Name Priority Associated Diagnoses Date/Time ESOPHAGOGASTRODUODENOSCOPY Cirrhosis Alc oholic (HCC) 03/20/2022 8:45 AM TOWEL STRETCHER Hypertension Portal (HCC) documented as of this encounter Visit Diagnoses Not on filedocumented in this encounter Additional Health Concerns Infection Onset Date Last Indicated Resolved Time COVID19 08/29/2021 08/29/2021 09/18/2021 8:31 AM CDT documented as of this encounter Care Teams Plasma Processing Technician Relationship Specialty Start Date End Date Elsewhere, Pcp PCP - General Family Medicine 03/10/20 11/30/21 [facility] 08/25/21 Ervin Schroeder MD Referring Provider Family Medicine 03/24/[address] [place] [address] documented as of this encounter
--- OUTSIDE RECORDS SUMMARY | 2022-02-14 22:09 | XMS_ITS | Encounter Summary ---
:1990 Author Organization [facility] Address [address] [place] [address] Care Team Providers Name Role Phone Elsewhere, Pcp Primary Care Provider Unavailable Encounter Details Date Type Department Care Team Description 09/05/2021 Clinical Communication Division of Edgar, Gastroenterology in [place] Schaefer M.D.[place], [place] M.P.H. [address] [facility] [address] [place] [address] [place], [place] [phone] Social History Tobacco Use Types Packs/Day Years [...] you attend uatsdin or Patient refused 2021 presybeterian services? 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 Hernández ordered a variety of tests for patient ot complete closer to home. [facility] reachedout to patient to offer tests closer to home and patient stated she would rather drive to [place] for all testing. Due to patient preference, the following orders will need region changes from [facility] to [facility] before we are able to schedule for patient in [place]. 1. BMD bone Density Spine and Hips [...] 2 Appointment Radiology Matthew Jerome 2 Y, Elizabeth.B.B.S., M.Jeri [address] [place] [phone] Appointment Gastroenterology and Adrianne, 2 Hepatology Yue Burciaga M.D. [address] [place] [phone] Virtual Visit Transplant Matthew Jerome 2 Tyrell Rodriguez M.D. [address] [place] [phone] Office Visit Gastroenterology and Matthew Jerome 2 Hepatology Tyrell Rodriguez M.D. [address] [place] [phone] Appointment Radiology Matthew Jerome 2 Vik RodriguezBLilian Bedolla [address] [place] [phone] Hospital Gastroenterology and Lachantell Matthew Cirrhos is Alcoholic (HCC) 2 Encounter Hepatology Tyrell Rodriguez M.D. [address] [place] [phone] Anesthesia Event Gastroenterology and Rl, 2 Hepatology Ervin Burgos M.D. [address] [place] [phone] Surgery Gastroenterology and LuischantellMatthew ESOPHAG OGASTRODUODENOSCOPY 2 Hepatology Vik RodriguezBLilian Bedolla [address] [place] [phone] Scheduled Procedures Name Priority Associated Diagnoses Date/Time ESOPHAGOGASTRODUODENOSCOPY Cirrhosis Alc oholic (HCC) 03/20/2022 8:45 AM REAL PROPERTY EVALUATOR Hypertension Portal (HCC) documented as of this encounter Visit Diagnoses Not on filedocumented in this encounter Additional Health Concerns Infection Onset Date Last Indicated Resolved Time COVID19 08/29/2021 08/29/2021 09/18/2021 8:31 AM CDT documented as of this encounter Care Teams Saddle Cutter Relationship Specialty Start Date End Date Elsewhere, Pcp PCP - General Family Medicine 03/10/20 11/30/21 [facility] [place] [facility] 08/25/21 Ervin Schroeder MD Referring Provider Family Medicine 03/24/[address] [place] [address] documented as of this encounter
--- OUTSIDE RECORDS SUMMARY | 2022-02-14 22:09 | XMS_ITS | Encounter Summary ---
:1990 Author Organization [facility] Address [address] [place] [address] Care Team Providers Name Role Phone Elsewhere, Pcp Primary Care Provider Unavailable Encounter Details Date Type Department Care Team Description 09/19/2021 Hospital Encounter Department of Matthew Jerome Abnorm al Liver Laboratory Medicine M.BSumaBGraeme, M. D. Function Test in [address] [address] [place] [phone] (Work) [phone] Social History Tobacco Use Types Packs/Day Years [...] you attend christianity or Patient refused 2021 holiness services? 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, 2 Hepatology Yue Burciaga M.D. [address] [place] [phone] Virtual Visit Transplant Matthew Jerome 2 Y M.B.B.Lilian [place] [address] [place] [phone] Office Visit Gastroenterology and Matthew Jerome 2 Hepatology Joshua RodriguezB.B.Lilian [place] [address] [place] [phone] Appointment Radiology Matthew Jerome 2 Y M.B.B.Lilian [place] [address] [place] [phone] Hospital Gastroenterology and [facility] Cirrhos is Alcoholic (HCC) 2 Encounter Hepatology Tyrell Rodriguez M.D. [address] [place] [phone] Anesthesia Event Gastroenterology and Rl, 2 Hepatology Ervin Burgos M.D. [address] [place] [phone] Surgery Gastroenterology and [facility] ESOPHAG OGASTRODUODENOSCOPY 2 Hepatology Tyrell Rodriguez M.D. [address] [place] [phone] Scheduled Procedures Name Priority Associated Diagnoses Date/Time ESOPHAGOGASTRODUODENOSCOPY Cirrhosis Alc oholic (HCC) 03/20/2022 8:45 AM SALES ACCOUNT ASSOCIATE Hypertension Portal (HCC) documented as of [...] CDT eGFR-Black/Afric >90 >=60 09/19/2021 [place] an Venezuelan mL/min/BSA 4:09 PM CDT Comment: ----ADDITIONAL INFORMATION---- [...] Phon e Number [facility]- [address] [place] [address] [facility] [place] [place] [address] System in [place] [address] documented in this encounter Visit Diagnoses Diagnosis Abnormal Liver Function Test Cirrhosis Alcoholic (HCC) Cirrhosis Alcoholic (HCC) Hypertension Portal (HCC) documented in this encounter Care Teams Time Recorder Relationship Specialty Start Date End Date Elsewhere, Pcp PCP - General Family Medicine 03/10/20 11/30/21 [facility] [place] [facility] 08/25/21 Ervin Schroeder MD Referring Provider Family Medicine 03/24/211979 [address], [place] [address] documented as of this encounter
--- OUTSIDE RECORDS SUMMARY | 2022-02-14 22:09 | XMS_ITS | Encounter Summary ---
:1990 Author Organization [facility] Address [address] [place] [address] Care Team Providers Name Role Phone Elsewhere, Pcp Primary Care Provider Unavailable Encounter Details Date Type Department Care Team Description 09/09/2021 Orders Only Department of Mousa, Matthew Y, Abnormal Angelica er Gastroenterology in M.B.Yelena. M. Slick. Function Test [address] (Primary Dx) 1025 [place] [phone] Social History Tobacco Use Types Packs/Day Years [...] you attend muslim or Patient refused 2021 moravian services? 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 [address] [place] [phone] Appointment Gastroenterology and Adrianne, 2 Hepatology Yue Burciaga M.D. [address] [place] [phone] Virtual Visit Transplant Matthew Jerome 2, M.B.B.S., M.D. [address] [place] [phone] Office Visit Gastroenterology and Matthew Jerome 2 Hepatology Tyrell Rodriguez M.D. [address] [place] [phone] Appointment Radiology [facility] 2 YTyrell M.D. [address] [place] [phone] Hospital Gastroenterology and [facility] Cirrhos is Alcoholic (HCC) 2 Encounter Hepatology Tyrell Rodriguez M.D. [address] [place] [phone] Anesthesia Event Gastroenterology and Rl, 2 Hepatology Ervin Burgos M.D. [address] [place] [phone] Surgery Gastroenterology and [facility] ESOPHAG OGASTRODUODENOSCOPY 2 Hepatology Tyrell Rodriguez M.D. [address] [place] [phone] Scheduled Procedures Name Priority Associated Diagnoses Date/Time ESOPHAGOGASTRODUODENOSCOPY Cirrhosis Alc oholic (HCC) 03/20/2022 8:45 AM REGISTERED NURSE MIDWIFE Hypertension Portal (HCC) documented as of this encounter Results Creatinine with Estimated GFR (09/19/2021 1:32 PM CDT) athologist Signature Creatinine 0.68 0.59 - 09/19/2021 [place] 1.04 mg/dL 4:09 PM CDT eGFR-Black/Afric >90 >=60 09/19/2021 [place] an Malian mL/min/BSA 4:09 PM CDT Comment: ----ADDITIONAL INFORMATION---- [...] City/State/ZIP Code Phon e Number [facility]- [address] [place] [address] [place] [place] [address] System in [place] [address] documented in this encounter Visit Diagnoses Diagnosis Abnormal Liver Function Test - Primary Cirrhosis Alcoholic (HCC) Cirrhosis Alcoholic (HCC) Hypertension Portal (HCC) documented in this encounter Additional Health Concerns Infection Onset Date Last Indicated Resolved Time COVID19 08/29/2021 08/29/2021 09/18/2021 8:31 AM CDT documented as of this encounter Care Teams Jewelry Department Supervisor Relationship Specialty Start Date End Date Elsewhere, Pcp PCP - General Family Medicine 03/10/20 11/30/21 [facility] [place] [facility] 08/25/21 Ervin Schroeder MD Referring Provider Family Medicine 03/24/211979 [address] [place] [address] documented as of this encounter
--- OUTSIDE RECORDS SUMMARY | 2022-02-14 22:09 | XMS_ITS | Encounter Summary ---
:1990 Author Organization [facility] Address [address] [place] [address] Care Team Providers Name Role Phone Elsewhere, Pcp Primary Care Provider Unavailable Encounter Details Date Type Department Care Team Description 09/03/2021 Clinical Communication Division of Marco Zimmerman, [facility], [facility] [address] [place] [address] [place] [phone] [place], [place] [phone] (Work) [phone] Social History Tobacco Use Types Packs/Day Years [...] you attend mandaeism or Patient refused 2021 mormon services? 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 - 09/03/2021 5:26 PM CDT M[facility] TELEPHONE COMMUNICATION NOTE Process Helper: None The patient was called regarding a [...] your primary care provider or present to [facility] emergency department for evaluation. Treatment Options [...] references were used: Nursing or Provider judgement, [facility] workflow, [facility] Protocols Marco Alberto M.D. [place] COVID Care Team [facility] and [facility] documented in this encounter Plan of Treatment Upcoming Encounters Date Type Specialty Care Team Description Telemedicine Transplant 2 Appointment Radiology Matthew Jerome 2 YTyrell M.D. [address] [place] [phone] Appointment Gastroenterology and Adrianne, 2 Hepatology Yue Burciaga M.D. [address] [place] [phone] Virtual Visit Transplant LuisNew abdular 2 Tyerll Rodriguez M.D. [address] [place] [phone] Office Visit Gastroenterology and Matthew Jerome 2 Hepatology Tyrell Rodriguez M.D. [address] [place] [phone] Appointment Radiology Matthew Jerome 2 Tyrell Rodriguez M.D. [address] [place] [phone] Hospital Gastroenterology and Matthew Jerome Cirrhos is Alcoholic (HCC) 2 Encounter Hepatology Tyrell Rodriguez M.D. [address] [place] [phone] Anesthesia Event Gastroenterology and Rl, 2 Hepatology Ervin Burgos M.D. [address] [place] [phone] Surgery Gastroenterology and Matthew Jerome ESOPHAG OGASTRODUODENOSCOPY 2 Hepatology Tyrell Rodriguez M.D. [address] [place] [phone] Scheduled Procedures Name Priority Associated Diagnoses Date/Time ESOPHAGOGASTRODUODENOSCOPY Cirrhosis Alc oholic (HCC) 03/20/2022 8:45 AM ACCORDION TUNER Hypertension Portal (HCC) documented as of this encounter Visit Diagnoses Not on filedocumented in this encounter Additional Health Concerns Infection Onset Date Last Indicated Resolved Time COVID19 08/29/2021 08/29/2021 09/18/2021 8:31 AM CDT documented as of this encounter Care Teams Security Agent Relationship Specialty Start Date End Date Elsewhere, Pcp PCP - General Family Medicine 03/10/20 11/30/21 [facility] [place] lab 08/25/21 Ervin Schroeder MD Referring Provider Family Medicine 03/24/[address] [place] [address] documented as of this encounter
--- OUTSIDE RECORDS SUMMARY | 2022-02-14 22:09 | XMS_ITS | Encounter Summary ---
:1990 Author Organization [facility] Address [address] [place] [address] Care Team Providers Name Role Phone Elsewhere, Pcp Primary Care Provider Unavailable Encounter Details Date Type Department Care Team Description 09/01/2021 Clinical Communication Department of Kerry Naranjo Gastroenterology in [place], [place] C.N.P., M.S.N. 1025 [facility] 1025 [place] [address] [place], [place] [phone] Social History Tobacco Use Types Packs/Day [...] attend jehovah's witness or Patient refused 2021 gnosticist services? 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 [address] [place] [phone] Virtual Visit Transplant Matthew Jerome 2 Tyrell Rodriguez M.D. [address] [place] [phone] Office Visit Gastroenterology and Matthew Jerome 2 Hepatology Tyrell Rodriguez M.D. [address] [place] [phone] Appointment Radiology LuisMatthew abdul 2 Tyrell Rodriguez M.D. [address] [place] [phone] Hospital Gastroenterology and Matthew Jerome Cirrhos is Alcoholic (HCC) 2 Encounter Hepatology Tyrell Rodriguez M.D. [address] [place] [phone] Anesthesia Event Gastroenterology and Rl, 2 Hepatology Ervni Burgos M.D. [address] [place] [phone] Surgery Gastroenterology and Matthew Jerome ESOPHAG OGASTRODUODENOSCOPY 2 Hepatology Tyrell Rodriguez M.D. 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 TECHNICAL OFFICER Hypertension Portal (HCC) documented as of this encounter Visit Diagnoses Not on filedocumented in this encounter Additional Health Concerns Infection Onset Date Last Indicated Resolved Time COVID19 08/29/2021 08/29/2021 09/18/2021 8:31 AM CDT documented as of this encounter Care Teams Value Engineer Relationship Specialty Start Date End Date Elsewhere, Pcp PCP - General Family Medicine 03/10/20 11/30/21 [facility] 08/25/21 Ervin Schroeder MD Referring Provider Family Medicine 03/24/[address] [place] [address] documented as of this encounter
--- OUTSIDE RECORDS SUMMARY | 2022-02-14 22:09 | XMS_ITS | Encounter Summary ---
:1990 Author Organization [facility] Address [address] [place] [address] Care Team Providers Name Role Phone Elsewhere, Pcp Primary Care Provider Unavailable Reason for Referral Outpatient (Routine) - Closed Specialty Diagnoses / Procedures Referred By Contact Refer red To Contact Diagnoses Fatty Liver Failure Liver (HCC) Cirrhosis Alcoholic (HCC) Preoperative Exam Ascites Abnormal Liver Function Test Warren Hernández M.D., [facility] Region Procedures DX Chest AP or PA and Lateral 2 Views M.P.H. [address] [place] [address] Referral ID Status Reason Start Date Expiration Date Visits Requ ested Visits Authorized [id number] Closed 09/08/2021 09/08/2022 1 1 Reason for Visit Outpatient (Routine) - Closed Specialty Diagnoses / Procedures Referred By Contact Refer red To Contact Diagnoses Fatty Liver Failure Liver (HCC) Cirrhosis Alcoholic (HCC) Preoperative Exam Ascites Abnormal Liver Function Test Warren Hernández M.D., [facility] Region Procedures DX Chest AP or PA and Lateral 2 Views M.P[facility]H. [address] [place] [address] Referral ID Status Reason Start Date Expiration Date Visits Requ ested Visits Authorized [id number] Closed 09/08/2021 09/08/2022 1 1 Encounter Details Date Type Department Care Team Description 09/22/2021 Hospital Encounter Department of Deena Hernández fred; Radiology, [place] Warren Schaefer M.D., Greg segal Liver (HCC); [facility], in M.P.H. Cirrhosis Alcoholic (HCC); [place], [place] [address] [facility] Preoperative Exam; [address] [place], [place] Ascites; [place] [address] Abnormal Liver Function Test [phone] Social History [...] you attend gnosticist or Patient refused 2021 taoist services? 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 [address] [place] [phone] Appointment Gastroenterology demian Silver 2 Hepatology Yue Segal M.D. [address] [place] [phone] Virtual Visit Transplant Luischantell Matthew 2 YTyrell M.D. [address] [place] [phone] Office Visit Gastroenterology and Matthew Jerome 2 Hepatology Tyrell Rodriguez M.D. [address] [place] [phone] Appointment Radiology Matthew Jerome 2 YTyrell M.D. [address] [place] [phone] Hospital Gastroenterology and QueenieMatthew Cirrhos is Alcoholic (HCC) 2 Encounter Hepatology Tyrell Rodriguez M.D. [address] [place] [phone] Anesthesia Event Gastroenterology and Rl, 2 Hepatology Ervin Burgos M.D. 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
--- OUTSIDE RECORDS SUMMARY | 2022-02-14 22:09 | XMS_ITS | Encounter Summary ---
:1990 Author Organization [facility] Address [address] [place] [address] Care Team Providers Name Role Phone Elsewhere, Pcp Primary Care Provider Unavailable Reason for Visit Reason Comments Appointment PMR 09/23 Phone Contact PMR PT Encounter Details Date Type Department Care Team Description 09/14/2021 Clinical Ramirez Barajas, Camron coreas (PMR Communication Center for [facility], 09/23); Phone Transplantation and MCee., Ph.D. Contact (PMR PT) Clinical [facility] [address] [facility] [address] [facility] [phone] Social History Tobacco Use Types Packs/Day Years [...] you attend rastafari or Patient refused 2021 taoist services? Do you belong to any clubs or No 02/10/2022 organizations such as rastafari groups, unions, fraTribe Wearables or athletic groups, or school groups? How [...] or the highest technical, or vocational p [facility] degree you have received? 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 None of the [...] Appointment Radiology LuisMatthew abdul 2 YTyrell M.D. [address] [place] [phone] Appointment Gastroenterology demian Silver, 2 Hepatology Yue Burciaga M.D. [address] [place] [phone] Virtual Visit Transplant LuisNew abdular 2 YTyrell M.D. [address] [place] [phone] Office Visit Gastroenterology and LuisNew abdular 2 Hepatology Tyrell Rodriguez M.D. [address] [place] [phone] Appointment Radiology LuisNew abdular 2 YTyrell M.D. [address] [place] [phone] Hospital Gastroenterology and Matthew Jerome Cirrhos is Alcoholic (HCC) 2 Encounter Hepatology Tyrell Rodriguez M.D. [address] [place] [phone] Anesthesia Event Gastroenterology and Rl, 2 Hepatology Ervin Burgos M.D. [address] [place] [phone] Surgery Gastroenterology and LuisNew abdular ESOPHAG OGASTRODUODENOSCOPY 2 Hepatology Tyrell Rodriguez M.D. 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
--- OUTSIDE RECORDS SUMMARY | 2022-02-14 22:09 | XMS_ITS | Encounter Summary ---
:1990 Author Organization [facility] Address [address] [place] [address] Care Team Providers Name Role Phone Elsewhere, Pcp Primary Care Provider Unavailable Reason for Referral Outpatient (Routine) - Closed Specialty Diagnoses / Procedures Referred By Contact Refer red To Contact Diagnoses Cirrhosis Alcoholic (HCC) Abnormal Liver Function Test Ascites Pretransplant Recipient Evaluation Exam Preoperative Exam Warren Hernández [facility] Procedures Echo Transthoracic (TTE) Lilian, M.P.H. [address] [place] [address] Referral ID Status Reason Start Date Expiration Date Visits Requ ested Visits Authorized [id number] Closed 08/31/2021 08/31/2022 1 1 Reason for Visit Outpatient (Routine) - Closed Specialty Diagnoses / Procedures Referred By Contact Refer red To Contact Diagnoses Cirrhosis Alcoholic (HCC) Abnormal Liver Function Test Ascites Pretransplant Recipient Evaluation Exam Preoperative Exam Warren Hernández, [facility] Procedures Echo Transthoracic (TTE) Lilian, M.P.H. [address] [place] [address] Referral ID Status Reason Start Date Expiration Date Visits Requ ested Visits Authorized [id number] Closed 08/31/2021 08/31/2022 1 1 Encounter Details Date Type Department Care Team Description 09/23/2021 Hospital Department of [place], Cirrhosis Alco holic (HCC); Encounter Cardiovascular Warren A, Abnormal Live r Function Test; Diseases in Lilian Holloway, M.P.H . Ascites; [place] [address] [place] [address] Pretransplant Recipient Evaluation Exam; [address] [place], [place] [address] [phone] Social History Tobacco Use Types Packs/Day Years [...] you attend scientologist or Patient refused 2021 sabianist services? 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 [address] [place] [phone] Appointment Gastroenterology demian Silver, 2 Hepatology Yue Burciaga M.D. [address] [place] [phone] Virtual Visit Transplant LuisNew abdular 2 YTyrell M.D. [address] [place] [phone] Office Visit Gastroenterology and LuisNew abdular 2 Hepatology Tyrell Rodriguez M.D. [address] [place] [phone] Appointment Radiology LuisNew abdular 2 YTyrell M.D. [address] [place] [phone] Hospital Gastroenterology and Matthew Jerome Cirrhos is Alcoholic (HCC) 2 Encounter Hepatology Tyrell Rodriguez M.D. [address] [place] [phone] Anesthesia Event Gastroenterology and Rl, 2 Hepatology Ervin Burgos M.D. 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 Procedure Note Foster Luna M.B., B.. - 2021 For the complete report, see [...] protocol documented in this encounter Care Teams Day Care Assistant Relationship Specialty Start Date End Date Elsewhere, Pcp PCP - General Family Medicine 03/10/20 11/30/21 [facility]- [place] lab 08/25/21 Ervin Schroeder MD Referring Provider Family Medicine 03/24/[address] [place] [address] documented as of this encounter
--- OUTSIDE RECORDS SUMMARY | 2022-02-14 22:09 | XMS_ITS | Encounter Summary ---
:1990 Author Organization [facility] Address [address] [place] [address] Care Team Providers Name Role Phone Elsewhere, Pcp Primary Care Provider Unavailable Encounter Details Date Type Department Care Team Description 09/03/2021 Virtual Visit Division of [facility] Marco Alberto A bnormal Liver Internal Medicine, M.D. 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 - 09/03/2021 5:24 PM CDT Note in error. documented in this encounter Plan of Treatment Upcoming Encounters Date Type Specialty Care Team Description Telemedicine Transplant 2 Appointment Radiology Matthew Jerome 2 YVikBGraeme, Lilian [address] [place] [address] Appointment Gastroenterology and Adrianne, 2 Hepatology Yue Burciaga M.D. [address] [place] [address] Virtual Visit Transplant Matthew Jerome 2 YTyrell M.D. [address] [place] [phone] Office Visit Gastroenterology and Kschantell Matthew 2 Hepatology Tyrell Rodriguez M.D. [address] [place] [phone] Appointment Radiology Luischantell Matthew 2 Tyrell Rodriguez M.D. [address] [place] [phone] [facility] Gastroenterology and [facility] Cirrhos is Alcoholic (HCC) 2 Encounter Hepatology Tyrell Rodriguez M.D. [address] [place] [phone] Anesthesia Event Gastroenterology and Rl, 2 Hepatology Ervin Burgos M.D. [address] [place] [phone] Surgery Gastroenterology and [facility] ESOPHAG OGASTRODUODENOSCOPY 2 Hepatology Tyrell Rodriguez M.D. [address] [place] [phone] Scheduled Procedures Name Priority Associated Diagnoses Date/Time ESOPHAGOGASTRODUODENOSCOPY Cirrhosis Alc oholic (HCC) 03/20/2022 8:45 AM BIOCHEMISTRY SPECIALIST Hypertension Portal (HCC) documented as of this encounter Visit Diagnoses Diagnosis Abnormal Liver Function Test Cirrhosis Alcoholic (HCC) Cirrhosis Alcoholic (HCC) Hypertension Portal (HCC) documented in this encounter Additional Health Concerns Infection Onset Date Last Indicated Resolved Time COVID19 08/29/2021 08/29/2021 09/18/2021 8:31 AM CDT documented as of this encounter Care Teams Research Physiologist Relationship Specialty Start Date End Date Elsewhere, Pcp PCP - General Family Medicine 03/10/20 11/30/21 [facility] [place] lab 08/25/21 Ervin Schroeder MD Referring Provider Family Medicine 03/24/[address] [place] [address] documented as of this encounter
--- OUTSIDE RECORDS SUMMARY | 2022-02-14 22:10 | XMS_ITS | Encounter Summary ---
:1990 Author Organization [facility] Address [address] [place] [address] Care Team Providers Name Role Phone Elsewhere, Pcp Primary Care Provider Unavailable Encounter Details Date Type Department Care Team Description 08/13/2021 Orders Only Department of Mousa, Matthew Y, Ascites Amplifier Mechanic silva Gastroenterology in Joshua Santillan (Primary Dx) [place], [place] 1025 [facility] 1025 [place] [phone] Social History Tobacco Use Types Packs/Day Years [...] you attend sabianist or Patient refused 2021 zoroastrianism services? 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 [address] [place] [phone] Appointment Gastroenterology and Adrianne, 2 Hepatology Yue Burciaga M.D. [address] [place] [phone] Virtual Visit Transplant Matthew Jerome 2 Tyrell Rodriguez M.D. [address] [place] [phone] Office Visit Gastroenterology and Matthew Jerome 2 Hepatology Tyrell Rodriguez M.D. [address] [place] [phone] Appointment Radiology [facility] 2 YTyrell, Lilian [address] [place] [phone] [facility] Gastroenterology and [facility] Cirrhos is Alcoholic (HCC) 2 Encounter Hepatology Tyrell Rodriguez M.D. [address] [place] [phone] Anesthesia Event Gastroenterology and [facility], 2 Hepatology Ervin Burgos M.D. [address] [place] [phone] Surgery Gastroenterology and [facility] ESOPHAG OGASTRODUODENOSCOPY 2 Hepatology Tyrell Rodriguez, Lilian [address] [place] [phone] Scheduled Procedures Name Priority Associated Diagnoses Date/Time ESOPHAGOGASTRODUODENOSCOPY Cirrhosis Alc oholic (HCC) 03/20/2022 8:45 AM TREATING INSPECTOR Hypertension Portal (HCC) documented as of this encounter Visit Diagnoses Diagnosis Ascites Chronic - Primary Cirrhosis Alcoholic (HCC) Cirrhosis Alcoholic (HCC) Hypertension Portal (HCC) documented in this encounter Care Teams Shredder Tender Relationship Specialty Start Date End Date Elsewhere, Pcp PCP - General Family Medicine 03/10/20 11/30/21 Ervin Schroeder MD Referring Provider Family Medicine 03/24/[address] [place] [address] documented as of this encounter
--- OUTSIDE RECORDS SUMMARY | 2022-02-14 22:10 | XMS_ITS | Encounter Summary ---
:1990 Author Organization [facility] Address [address] [place] [address] Care Team Providers Name Role Phone Elsewhere, Pcp Primary Care Provider Unavailable Encounter Details Date Type Department Care Team Description 08/29/2021 Orders Only Department of Mousa, Matthew Y, Deficiency C oagulation Acquired (HCC) (Primary Dx); Gastroenterology in Joshua Santillan Cirrhosis Alcoholic (HCC) [place], [place] 10[address] [facility] 1025 [place] [address] [phone] Social History Tobacco Use Types Packs/Day Years [...] attend jehovah's witness or Patient refused 2021 gnosticism services? 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 [address] [place] [phone] Virtual Visit Transplant Matthew Jerome 2 Tyrell Rodriguez M.D. [address] [place] [phone] Office Visit Gastroenterology and Matthew Jerome 2 Hepatology Tyrell Rodriguez M.D. [address] [place] [phone] Appointment Radiology Matthew Jerome 2 YTyrell M.D. [address] [place] [phone] Hospital Gastroenterology and Matthew Jerome Cirrhos is Alcoholic (HCC) 2 Encounter Hepatology Tyrell Rodriguez M.D. [address] [place] [phone] Anesthesia Event Gastroenterology and Rl, 2 Hepatology Ervin Burgos M.D. [address] [place] [phone] Surgery Gastroenterology and Queenie Matthew ESOPHAG OGASTRODUODENOSCOPY 2 Hepatology Tyrell Rodriguez M.D. [address] [place] [phone] Scheduled Procedures Name Priority Associated Diagnoses Date/Time ESOPHAGOGASTRODUODENOSCOPY Cirrhosis Alc oholic (HCC) 03/20/2022 8:45 AM COLLAR SEWER Hypertension Portal (HCC) documented as of this encounter Visit Diagnoses Diagnosis Deficiency Coagulation Acquired (HCC) - Primary Cirrhosis Alcoholic (HCC) Cirrhosis Alcoholic (HCC) Cirrhosis Alcoholic (HCC) Hypertension Portal (HCC) documented in this encounter Care Teams Remotely Operated Vehicle Relationship Specialty Start Date End Date Elsewhere, Pcp PCP - General Family Medicine 03/10/20 11/30/21 [facility] [place] [facility] 08/25/21 Ervin Schroeder MD Referring Provider Family Medicine 03/24/[address] [place] [phone] documented as of this encounter
--- OUTSIDE RECORDS SUMMARY | 2022-02-14 22:10 | XMS_ITS | Encounter Summary ---
:1990 Author Organization [facility] Address [address] [place] [address] Care Team Providers Name Role Phone Elsewhere, Pcp Primary Care Provider Unavailable Encounter Details Date Type Department Care Team Description 08/29/2021 Lab Department of Kerry Gee [facility] in [place], VIDEO PHOTOGRAPHER, C.N.P., [facility].S.N. Examination (COVID-19) 1025 [facility] 1025 [place] [address] [place], [place] [phone] (Wo rk) Social History Tobacco Use [...] you attend mandaeism or Patient refused 2021 alevism services? 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 For questions, contact the [place] Covid Care Team ([facility]): Pager: [phone] In basket: P R[facility] COVID-19 POSITIVE Covid Care e-consult NOTE: At the time of testing, patients are instructed to obtain the result by calling the [facility] result line or by checking their online services account. documented in this encounter Plan of Treatment Upcoming Encounters Date Type Specialty Care Team Description Telemedicine Transplant 2 Appointment Radiology LuisMatthew abdul 2 YTyrell M.D. [address] [place] [phone] Appointment Gastroenterology demian Silver, 2 Hepatology Yue Burciaga M.D. [address] [place] [phone] Virtual Visit Transplant LuisMatthew abdul 2 YTyrell M.D. [address] [place] [address] [phone] Office Visit Gastroenterology and LuisMatthew abdul 2 Hepatology Tyrell Rodriguez M.D. [address] [place] [phone] Appointment Radiology LuisMatthew abdul 2 YJoshuaB.BLilian Bedolla [address] [place] [address] [phone] Hospital Gastroenterology and LuisMatthew abdul Cirrhos is Alcoholic (HCC) 2 Encounter Hepatology Vik RodriguezBLilian Bedolla [address] [place] [address] [phone] Anesthesia Event Gastroenterology and Rl, 2 Hepatology Ervin Burgos M.D. [address] [place] [phone] Surgery Gastroenterology and Mousa, Matthew ESOPHAG OGASTRODUODENOSCOPY 2 Hepatology Tyrell Rodriguez M.D. 1025 [place] [phone] Scheduled Procedures Name Priority Associated Diagnoses Date/Time ESOPHAGOGASTRODUODENOSCOPY Cirrhosis Alc oholic (HCC) 03/20/2022 8:45 AM RESTAURANT BUSSER Hypertension Portal (HCC) documented as of this encounter Procedures Procedure Name Priority Date/Time Associated Diagnosis Comme nts SARS CORONAVIRUS-2 Routine 08/29/2021 4:14 PM Encounter For Re sults for this RNA, V CDT Preprocedural procedure are in Laboratory Examination the r esults (COVID-19) section. documented in this encounter Results (ABNORMAL) SARS Coronavirus-2 RNA, V Asymptomatic (08/29/2021 4:14 PM CDT) [facility] gist Method Time Signature SARS-CoV-2 Swab, 08/29/2021 MK[facility] Specimen Nasopharynx 11:28 PM Source CDT SARS CoV-2 Detected (A) Undetected 08/29/2021 MKTO RNA, TMA 11:28 PM CDT Comment: SARS-CoV-2 RNA present. ----ADDITIONAL INFORMATION---- This molecular amplification test was pe rformed using the Aptima SARS-CoV-2 assay ([employer] on the [employer] tem under emergency use authorization (EUA) by the U.S. Food and Drug Administ ration. Fact sheets for this EUA assay can be fo und at the following links: For Healthcare Providers: https://www.fd a.gov/media/613111/download For Patients: https://www.fda.gov/media/ 939204/download Specimen Anatomical Collection Method Collection Time Receive d Time (Source) Location / / Volume Laterality Varies 08/29/2021 4:14 PM 5:17 (Nasopharynx) CDT PM CDT Kerry Naranjo APRN, C.N.P., M.S.N. LAB MICROBIOLOGY - GENERAL ORDERABLES Performing Organization Address City/State/ZIP Code Phon e Number [facility]- [address] [place] [address] [place] [address] System in [place] 1025 [facility] documented in this encounter Visit Diagnoses Diagnosis Encounter For Preprocedural Laboratory E xamination (COVID-19) Cirrhosis Alcoholic (HCC) Cirrhosis Alcoholic (HCC) Hypertension Portal (HCC) documented in this encounter Additional Health Concerns Infection Onset Date Last Indicated Resolved Time COVID19 Pending 08/29/2021 08/29/2021 08/29/2021 11:29 PM CDT documented as of this encounter Care Teams Freight Booker Relationship Specialty Start Date End Date Elsewhere, Pcp PCP - General Family Medicine 03/10/20 11/30/21 [facility] [place] [facility] 08/25/21 Ervin Schroeder MD Referring Provider Family Medicine 03/24/[address] [place] [address] documented as of this encounter
--- OUTSIDE RECORDS SUMMARY | 2022-02-14 22:10 | XMS_ITS | Encounter Summary ---
:1990 Author Organization [facility] Address [address] [place] [address] Care Team Providers Name Role Phone Elsewhere, Pcp Primary Care Provider Unavailable Reason for Visit Reason Comments Medication Question Encounter Details Date Type Department Care Team Description 08/31/2021 Nurse Triage Department of Family Nabila Dumont [facility] Question Medicine, [facility], in [address] [place] [phone] [place] [address] [phone] Social History Tobacco Use Types Packs/Day Years [...] you attend caodaism or Patient refused 2021 catholic services? 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 ALTERNATE DISPOSITION - CALL DOCTOR WITHIN 24 HOURS: * The patient's healthcare provider (doctor, IRRIGATION PUMP INSTALLER, or PA) may be able to handle [...] Matthew Jerome 2 Y M.B.B.SSuma, Lilian [address] [place] [phone] Appointment Gastroenterology and Adrianne, 2 Hepatology Yue Burciaga M.D. [address] [place] [phone] Virtual Visit Transplant Luischantell Matthew 2 Jennifer M.B.B.SSuma, Lilian [address] [place] [phone] Office Visit Gastroenterology and Queenie Matthew 2 Hepatology Elizabeth Rodriguez.B.B.SSuma, Lilian [address] [place] [phone] Appointment Radiology Matthew Jerome 2 Y M.B.B.SSuma, Lilian [address] [place] [phone] Hospital Gastroenterology and QueenieNewar Cirrhos is Alcoholic (HCC) 2 Encounter Hepatology Joshua RodriguezB.B.SSuma, Lilian [address] [place] [phone] Anesthesia Event Gastroenterology and Rl, 2 Hepatology Ervin Burgos M.D. 1025 [place] [phone] Surgery Gastroenterology and Mousa, Matthew ESOPHAG OGASTRODUODENOSCOPY 2 Hepatology Tyrell Rodriguez M.D. 10[address] [place] [phone] Scheduled Procedures Name Priority Associated Diagnoses Date/Time ESOPHAGOGASTRODUODENOSCOPY Cirrhosis Alc oholic (HCC) 03/20/2022 8:45 AM GLASS ETCHER Hypertension Portal (HCC) documented as of this encounter Visit Diagnoses Not on filedocumented in this encounter Additional Health Concerns Infection Onset Date Last Indicated Resolved Time COVID19 08/29/2021 08/29/2021 09/18/2021 8:31 AM CDT documented as of this encounter Care Teams Sales Correspondence Clerk Relationship Specialty Start Date End Date Elsewhere, Pcp PCP - General Family Medicine 03/10/20 11/30/21 [facility] [place] [facility] 08/25/21 Ervin Schroeder MD Referring Provider Family Medicine 03/24/[address] [place] [address] [phone] documented as of this encounter
--- OUTSIDE RECORDS SUMMARY | 2022-02-14 22:10 | XMS_ITS | Encounter Summary ---
:1990 Author Organization [facility] Address [address] [place] [address] Care Team Providers Name Role Phone Elsewhere, Pcp Primary Care Provider Unavailable Reason for Visit Reason Comments Phone Contact Records 08/03 Encounter Details Date Type Department Care Team Description 08/29/2021 Clinical Department of Matthew Jerome Phone Contact Communication Gastroenterology in Vik RodriguezB.S., (Record s 08/03) [place], [place] M.DSuma 1025 [facility] 1025 [place] [phone] [place] [phone] Social History Tobacco Use Types Packs/Day Years [...] you attend evangelical or Patient refused 2021 quaker services? 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 [address] [place] [phone] Virtual Visit Transplant LuisMatthew abdul 2 Y MSumaB.BLilian Bedolla [address] [place] [phone] Office Visit Gastroenterology and Matthew Jerome 2 Hepatology Joshua RodriguezBSumaBLilian Bedolla [address] [place] [phone] Appointment Radiology Queenie Matthew 2 YJoshuaB.B.Kath, Lilian [address] [place] [phone] [facility] Gastroenterology and Matthew Jerome Cirrhos is Alcoholic (HCC) 2 Encounter Hepatology Joshua RodriguezB.B.Lilian Stockton [address] [place] [phone] Anesthesia Event Gastroenterology and Rl, 2 Hepatology Ervin Burgos M.D. [address] [place] [phone] Surgery Gastroenterology and Matthew Jerome ESOPHAG OGASTRODUODENOSCOPY 2 Hepatology Y M.B.B.Kath, Lilian [address] [place] [phone] Scheduled Procedures Name Priority Associated Diagnoses Date/Time ESOPHAGOGASTRODUODENOSCOPY Cirrhosis Alc oholic (HCC) 03/20/2022 8:45 AM [facility] Hypertension Portal (HCC) documented as of this encounter Visit Diagnoses Not on filedocumented in this encounter Additional Health Concerns Infection Onset Date Last Indicated Resolved Time COVID19 Pending 08/29/2021 08/29/2021 08/29/2021 11:29 PM CDT documented as of this encounter Care Teams Practice Billing Associate Relationship Specialty Start Date End Date Elsewhere, Pcp PCP - General Family Medicine 03/10/20 11/30/21 [facility] [place] [facility] 08/25/21 Ervin Schroeder MD Referring Provider Family Medicine 03/24/[address] [place] [phone] documented as of this encounter
--- OUTSIDE RECORDS SUMMARY | 2022-02-14 22:10 | XMS_ITS | Encounter Summary ---
:1990 Author Organization [facility] Address [address] [place] [address] Care Team Providers Name Role Phone Elsewhere, Pcp Primary Care Provider Unavailable Reason for Referral Appointment Request (Routine) - Closed Specialty Diagnoses / Procedures Referred By Contact Refer red To Contact Diagnoses Cirrhosis Alcoholic (HCC) Ascites Anemia Macrocytic Thrombocytopenia (HCC) Deficiency Coagulation Acquired (HCC) Kerry Naranjo APRN, Procedures Prothrombin Time (PT) C.N.P., M.S.N. 10[address] [place] [phone] Referral ID Status Reason Start Date Expiration Date Visits Requ ested Visits Authorized [id number] Closed 07/07/2021 07/07/2022 1 Reason for Visit Appointment Request (Routine) - Closed Specialty Diagnoses / Procedures Referred By Contact Refer red To Contact Diagnoses Cirrhosis Alcoholic (HCC) Ascites Anemia Macrocytic Thrombocytopenia (HCC) Deficiency Coagulation Acquired (HCC) Kerry Naranjo APRN, Procedures Prothrombin Time (PT) C.N.P., M.S.N. [address] [place] [phone] Referral ID Status Reason Start Date Expiration Date Visits Requ ested Visits Authorized [id number] Closed 07/07/2021 07/07/2022 1 Encounter Details Date Type Department Care Team Description 08/28/2021 Hospital Encounter Department of Kerry Naranjo Cirrhos is Alcoholic (HCC); Laboratory Medicine S, PATIENT ACCESS DIRECTOR, Ascites; in Moira Mejía, Anemia Macrocy tic; [place] M.S.N. Thrombocytopenia (HCC); [address] 10[address] [facility] Deficiency Coagulation Acquired (HCC) [place] [phone] Social History Tobacco Use Types Packs/Day Years [...] you attend tenriism or Patient refused 2021 temple services? 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 [address] [place] [phone] Appointment Gastroenterology and Adrianne, 2 Hepatology Yue Burciaga M.D. [address] [place] [phone] Virtual Visit Transplant Matthew Jerome 2 Joshua RodriguezB.B.Lilian Stockton [address] [place] [phone] Office Visit Gastroenterology and Matthew Jerome 2 Hepatology Joshua RodriguezB.BLilian Bedolla [address] [place] [phone] Appointment Radiology Matthew Jerome 2 Jennifer M.B.B.SLilian Moise [address] [place] [phone] Hospital Gastroenterology and Queenie Matthew Cirrhos is Alcoholic (HCC) 2 Encounter Hepatology Joshua RodriguezB.B.Lilian Stockton [address] [place] [phone] Anesthesia Event Gastroenterology and Rl, 2 Hepatology Ervin Burgos M.D. [address] [place] [phone] Surgery Gastroenterology and Luischantell Matthew ESOPHAG OGASTRODUODENOSCOPY 2 Hepatology Jennifer M.B.B.Lilian Stockton [address] [place] [phone] Scheduled Procedures Name Priority Associated Diagnoses Date/Time ESOPHAGOGASTRODUODENOSCOPY Cirrhosis Alc oholic (HCC) 03/20/2022 8:45 AM ATTENDANCE OFFICER Hypertension Portal (HCC) documented as of this encounter Procedures Procedure Name Priority Date/Time Associated Diagnosis Comme nts PROTHROMBIN TIME Routine 08/28/2021 5:01 PM Cirrhosis Alcoholi c Results for this (PT), P CDT (HCC) procedure are in Ascites the results Anemia Macrocyti c section. Thrombocytopenia (HCC) Deficiency Coagulation Acquired (HCC) documented in this encounter Results (ABNORMAL) Prothrombin Time (PT) (08/28/2021 5:01 PM CDT) [facility] Method Time Signature Prothrombin 25.9 (H) [...] Organization Address City/State/ZIP Code Phon e Number [facility]- [address] [place] [address] [place] [address] System in [place] [address] documented in this encounter Visit Diagnoses Diagnosis Cirrhosis Alcoholic (HCC) Ascites Anemia Macrocytic Thrombocytopenia (HCC) Deficiency Coagulation Acquired (HCC) Cirrhosis Alcoholic (HCC) Cirrhosis Alcoholic (HCC) Hypertension Portal (HCC) documented in this encounter Care Teams Electro Mechanical Solar Technician Relationship Specialty Start Date End Date Elsewhere, Pcp PCP - General Family Medicine 03/10/20 11/30/21 [facility] [place] [facility] 08/25/21 Ervin Schroeder MD Referring Provider Family Medicine 03/24/211979 [address] [place] [phone] documented as of this encounter
--- OUTSIDE RECORDS SUMMARY | 2022-02-14 22:10 | XMS_ITS | Encounter Summary ---
:1990 Author Organization [facility] Address [address] [place] [address] Care Team Providers Name Role Phone Elsewhere, Pcp Primary Care Provider Unavailable Encounter Details Date Type Department Care Team Description 08/31/2021 Nurse Triage Department of Family Naila Walters R.N. Medicine, [facility], in [address] [place], [place] [address] [place] [phone] [place] [address] [phone] Social History Tobacco Use Types Packs/Day Years [...] you attend orthodoxy or Patient refused 2021 lutheran services? Do [...] or the highest technical, or vocational p [email or web address] degree you have received? 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 - 08/31/2021 10:46 AM CDT Patient reports receiving a text message from [place] [facility] regarding her recent positive Covid test. The text provided a link which asked for a code. Patient is seeking more information regarding code. Unable to answer question at this time. Patient denies any worsening symptoms for triage at this time. Patient will check her email for more information from the [facility]. documented in this encounter Plan of Treatment Upcoming Encounters Date Type Specialty Care Team Description Telemedicine Transplant 2 Appointment Radiology Matthew Jerome 2, M.B.B.S., M.D. [address] [place] [phone] Appointment Gastroenterology and Adrianne, 2 Hepatology Yue Burciaga M.D. [address] [place] [phone] Virtual Visit Transplant Matthew Jerome 2 Tyrell Rodriguez, Lilian [address] [place] [phone] Office Visit Gastroenterology and Matthew Jerome 2 Hepatology Tyrell Rodriguez M.D. [address] [place] [phone] Appointment Radiology LuisMatthew abdul 2 Tyrell Rodriguez M.D. [address] [place] [phone] Hospital Gastroenterology and Matthew Jerome Cirrhos is Alcoholic (HCC) 2 Encounter Hepatology Tyrell Rodriguez, Lilian [address] [place] [phone] Anesthesia Event Gastroenterology and Rl, 2 Hepatology Ervin Burgos M.D. [address] [place] [phone] Surgery Gastroenterology and Matthew Jerome ESOPHAG OGASTRODUODENOSCOPY 2 Hepatology Joshua RodriguezBSumaBGraeme, Lilian [address] [place] [phone] Scheduled Procedures Name Priority Associated Diagnoses Date/Time ESOPHAGOGASTRODUODENOSCOPY Cirrhosis Alc oholic (HCC) 03/20/2022 8:45 AM RESIDENTIAL PROGRAM MANAGER Hypertension Portal (HCC) documented as of this encounter Visit Diagnoses Not on filedocumented in this encounter Additional Health Concerns Infection Onset Date Last Indicated Resolved Time COVID19 08/29/2021 08/29/2021 09/18/2021 8:31 AM CDT documented as of this encounter Care Teams Emt I/99 Relationship Specialty Start Date End Date Elsewhere, Pcp PCP - General Family Medicine 03/10/20 11/30/21 [facility] 08/25/21 Ervin Schroeder MD Referring Provider Family Medicine 03/24/[address] [place] [phone] documented as of this encounter
--- OUTSIDE RECORDS SUMMARY | 2022-02-14 22:10 | XMS_ITS | Encounter Summary ---
:1990 Author Organization [facility] Address [address] [place] [address] Care Team Providers Name Role Phone Elsewhere, Pcp Primary Care Provider Unavailable Reason for Referral Transplant (Routine) - Closed Specialty Diagnoses / Procedures Referred By Contact Refer brianda To Contact [facility]ian, M.P.H. [address] [place] [address] Referral ID Status Reason Start Date Expiration Date Visits Requ ested Visits Authorized [id number] Closed 08/26/2021 08/26/2022 1 1 ransplant (Routine) - Authorized Specialty Diagnoses / Procedures Referred By Contact Refer brianda To Contact Transplant Surgery / Diagnoses Cirrhosis Alcoholic (HCC) Abnormal Liver Function Test Ascites Pretransplant Recipient Evaluation Exam Preoperative Exam Warren Connor [facility] Transplant Lilian, M.P.H. [address] [place] [address] Referral ID Status Reason Start Date Expiration Date Visits V isits Requested Authorized [id number] Authorized 08/25/2021 08/25/2022 1 1 utpatient (Routine) - Closed Specialty Diagnoses / Procedures Referred By Contact Refer red To Contact Diagnoses Cirrhosis Alcoholic (HCC) Abnormal Liver Function Test Ascites Pretransplant Recipient Evaluation Exam Preoperative Exam Warren Connor M.D., [facility] Procedures BMD Bone Density Spine Hips M.P.H. [address] [place] [address] Referral ID Status Reason Start Date Expiration Date Visits Requ ested Visits Authorized [id number] Closed 08/25/2021 08/25/2022 1 1 ransplant (Routine) - Closed Specialty Diagnoses / Procedures Referred By Contact Refer red To Contact Transplant Surgery / Diagnoses Cirrhosis Alcoholic (HCC) Abnormal Liver Function Test Ascites Pretransplant Recipient Evaluation Exam Preoperative Exam Warren Connor [facility] Transplant M.Jeri, M.P.H. [address] [place] [address] Referral ID Status Reason Start Date Expiration Date Visits Requ ested Visits Authorized [id number] Closed 08/25/2021 08/25/2022 1 1 ransplant (Routine) - Closed Specialty Diagnoses / Procedures Referred By Contact Refer red To Contact Transplant Surgery / Diagnoses Cirrhosis Alcoholic (HCC) Abnormal Liver Function Test Ascites Pretransplant Recipient Evaluation Exam Preoperative Exam Warren Connor [facility] Transplant M.Jeri, M.P.H. [address] [place] [address] Referral ID Status Reason Start Date Expiration Date Visits Requ ested Visits Authorized [id number] Closed 08/25/2021 08/25/2022 1 1 utpatient (Routine) - Closed Specialty Diagnoses / Procedures Referred By Contact Refer red To Contact Preventive Medicine Diagnoses Cirrhosis Alcoholic (HCC) Abnormal Liver Function Test Ascites Pretransplant Recipient Evaluation Exam Preoperative Exam Warren Connor [facility] Lilian, M.P.H. [address] [place] [address] Referral ID Status Reason Start Date Expiration Date Visits Requ ested Visits Authorized [id number] Closed 08/25/2021 08/25/2022 1 1 utpatient (Routine) - Closed Specialty Diagnoses / Procedures Referred By Contact Refer red To Contact Pulmonary Medicine / Diagnoses Cirrhosis Alcoholic (HCC) Abnormal Liver Function Test Ascites Pretransplant Recipient Evaluation Exam Preoperative Exam Warren Connor [facility] Nicotine Dependence Lilian, M.P.H. [address] [place] [address] Referral ID Status Reason Start Date Expiration Date Visits Requ ested Visits Authorized [id number] Closed 08/25/2021 08/25/2022 1 1 utpatient (Routine) - Closed Specialty Diagnoses / Procedures Referred By Contact Refer red To Contact Diagnoses Cirrhosis Alcoholic (HCC) Abnormal Liver Function Test Ascites Pretransplant Recipient Evaluation Exam Preoperative Exam Warren Connor M.D., [facility] Procedures ECG 12 Lead M.P.H. [address] [place] [address] Referral ID Status Reason Start Date Expiration Date Visits Requ ested Visits Authorized [id number] Closed 08/25/2021 08/25/2022 1 1 utpatient (Routine) - Closed Specialty Diagnoses / Procedures Referred By Contact Refer red To Contact Diagnoses Cirrhosis Alcoholic (HCC) Abnormal Liver Function Test Ascites Pretransplant Recipient Evaluation Exam Preoperative Exam Warren Connor M.D., [facility] Procedures Short renal clearance: Iothalamate (Renal Studies Unit) M.P.H. [address] [place] [address] Referral ID Status Reason Start Date Expiration Date Visits Requ ested Visits Authorized [id number] Closed 08/25/2021 08/25/2022 1 1 Specialty Diagnoses / Procedures Referred By Contact Refer red To Contact [facility] [address] [place] [address] Referral ID Status Reason Start Date Expiration Date Visits Requ ested Visits Authorized utpatient (Routine) - Closed Specialty Diagnoses / Procedures Referred By Contact Refer red To Contact Pharmacy Diagnoses Cirrhosis Alcoholic (HCC) Abnormal Liver Function Test Ascites Pretransplant Recipient Evaluation Exam Preoperative Exam Warren Connor M.D., [facility] M.P.H. [address] [place] [address] Referral ID Status Reason Start Date Expiration Date Visits Requ ested Visits Authorized [id number] Closed 08/25/2021 08/25/2022 1 1 ransplant (Routine) - Closed Specialty Diagnoses / Procedures Referred By Contact Refer red To Contact Transplant Surgery / Diagnoses Cirrhosis Alcoholic (HCC) Abnormal Liver Function Test Ascites Pretransplant Recipient Evaluation Exam Preoperative Exam Warren Connor [facility] Transplant Lilian, M.P.H. [address] [place] [address] Referral ID Status Reason Start Date Expiration Date Visits Requ ested Visits Authorized [id number] Closed 08/25/2021 08/25/2022 1 1 ransplant (Routine) - Closed Specialty Diagnoses / Procedures Referred By Contact Refer red To Contact Transplant Surgery / Diagnoses Cirrhosis Alcoholic (HCC) Abnormal Liver Function Test Ascites Pretransplant Recipient Evaluation Exam Preoperative Exam Warren Connor [facility] Transplant Lilian, M.P.H. [address] [place] [address] Referral ID Status Reason Start Date Expiration Date Visits Requ ested Visits Authorized [id number] Closed 08/25/2021 08/25/2022 1 1 ransplant (Routine) - Closed Specialty Diagnoses / Procedures Referred By Contact Refer red To Contact Transplant Surgery / Diagnoses Cirrhosis Alcoholic (HCC) Abnormal Liver Function Test Ascites Pretransplant Recipient Evaluation Exam Preoperative Exam Warren Connor [facility] Transplant Lilian, M.P.H. [address] [place] [address] Referral ID Status Reason Start Date Expiration Date Visits Requ ested Visits Authorized [id number] Closed 08/25/2021 08/25/2022 1 1 ransplant (Routine) - Closed Specialty Diagnoses / Procedures Referred By Contact Refer red To Contact Transplant Surgery / Diagnoses Cirrhosis Alcoholic (HCC) Abnormal Liver Function Test Ascites Pretransplant Recipient Evaluation Exam Preoperative Exam Warren Connor [facility] Transplant Lilian, M.P.H. [address] [place] [address] Referral ID Status Reason Start Date Expiration Date Visits Requ ested Visits Authorized [id number] Closed 08/25/2021 08/25/2022 1 1 ransplant (Routine) - Closed Specialty Diagnoses / Procedures Referred By Contact Refer red To Contact Transplant Surgery / Diagnoses Cirrhosis Alcoholic (HCC) Abnormal Liver Function Test Ascites Pretransplant Recipient Evaluation Exam Preoperative Exam Warren Connor [facility] Transplant Lilian, M.P.H. [address] [place] [address] Referral ID Status Reason Start Date Expiration Date Visits Requ ested Visits Authorized [id number] Closed 08/25/2021 08/25/2022 1 1 Reason for Visit Reason Comments Referral - Liver Txp Phone screen Appointment Request (Routine) - Pending Review Specialty Diagnoses / Procedures Referred By Contact Refer red To Contact Transplant Diagnoses [facility] Procedures Referral ID Status Reason Start Date Expiration Date Visits V isits Requested Authorized [id number] Pending 08/21/2021 08/21/2022 1 1 Review Encounter Details Date Type Department Care Team Description 08/25/2021 Nurse Only Laney Canela Re ferral - Liver Txp [facility] M.A.N., R.N., (Phone screen) and Clinical Regeneration [facility] in [facility] [phone] [address] [facility] (Work) [place] [phone] Social History Tobacco Use Types Packs/Day [...] attend jehovah's witness or Patient refused 2021 hindu services? Do you belong to any clubs or No 02/10/2022 organizations such as jehovah's witness groups, unions, [employer] or athletic groups, or school groups? 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 Roge Schroeder Facility: [facility] Location: [facility] Sculpture Conservator: Kerry Naranjo NP /Dr. Jerome Facility: [facility] Location: [facility] Fax: Preferred lab: [facility] Lab Location: [place] Fax: Patient online messaging interest/discussed? 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 Received authorization for liver transplant referral. Information for Liver Transplant Candidates [id number] was reviewed with the patient via telephone call. Confirmed her interest in pursuing a liver transplant evaluation at [facility]. The patient verbalized understanding of the information [...] Appointment Radiology Matthew Jerome 2, M.B.B.S., Lilian [address] [place] [phone] Appointment Gastroenterology and Adrianne, 2 Hepatology Yue Burciaga M.D. [address] [place] [phone] Virtual Visit Transplant Matthew Jerome 2 Tyrell Rodriguez M.D. [address] [place] [phone] Office Visit Gastroenterology and Matthew Jerome 2 Hepatology Tyrell Rodriguez M.D. [address] [place] [phone] Appointment Radiology Queenie Matthew 2 YTyrell M.D. [address] [place] [phone] Hospital Gastroenterology and [facility] Cirrhos is Alcoholic (HCC) 2 Encounter Hepatology Tyrell Rodriguez M.D. [address] [place] [phone] Anesthesia Event Gastroenterology and Rl, 2 Hepatology Ervin Burgos M.D. [address] [place] [phone] Surgery Gastroenterology and [facility] ESOPHAG OGASTRODUODENOSCOPY 2 Hepatology Tyrell Rodriguez M.D. 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 CLINICAL PHARMACY Hypertension Portal (HCC) Scheduled Referrals Name Type Priority Associated Order Schedule Diagnoses Transplant - Outpatient Referral Routine Cirrhosis Alcoholic E xpected: Financial assessment (HCC) 09/22/2021 consult (clinic) Abnormal Liver (Approxim ate), Function Test Expires: Ascites 12/01/2022 Pretransplant Recipient Evaluation Exam Preoperative Exam Transplant - Lung Outpatient Referral Routine Cirrhosis Alcoho lic Expected: transplant consult ([facility]) 09/22/2021 ([facility]) Abnormal Liver (Approximate) , Function Test Expires: Ascites 12/01/2022 Pretransplant Recipient Evaluation Exam Preoperative Exam Transplant - Medical Outpatient Referral Routine Cirrhosis Alc oholic Expected: nutrition therapy ([facility]) 09/22/2021 consult (clinic) Abnormal Liver (Approxim ate), Function Test Expires: Ascites 12/01/2022 Pretransplant Recipient Evaluation Exam Preoperative Exam Transplant - Social Outpatient Referral Routine Cirrhosis Alco holic Expected: work consult ([facility]) 09/22/2021 ([facility]) Abnormal Liver (Approximate) , Function Test Expires: Ascites 12/01/2022 Pretransplant Recipient Evaluation Exam Preoperative Exam Transplant - Surgery Outpatient Referral Routine Cirrhosis Alc oholic Expected: consult (clinic) ([facility]) 09/22/2021 Abnormal Liver (Approximate) , Function Test Expires: Ascites 12/01/2022 Pretransplant Recipient Evaluation Exam Preoperative Exam Pharmacy - Outpatient Referral Routine Cirrhosis Alcoholic E xpected: Medication therapy ([facility]) 09/22/2021 management - Abnormal Liver (Approximate) , transplant consult Function Test Expires: (clinic) Ascites 12/01/2022 Pretransplant Recipient Evaluation Exam Preoperative Exam Transplant - Liver Outpatient Referral Routine Cirrhosis Alcoh olic Expected: pre education visit ([facility]) 09/22/2021 ([facility]) Abnormal Liver (Approximate) , Function Test Expires: Ascites 12/01/2022 Pretransplant Recipient Evaluation Exam Preoperative Exam Nicotine Dependence Outpatient Referral Routine Cirrhosis Alco holic Expected: - Counseling consult ([facility]) 10/01/2021 (clinic) Abnormal Liver (Approximate) , Function Test Expires: Ascites 12/01/2022 Pretransplant Recipient Evaluation Exam Preoperative Exam Preventive Medicine Outpatient Referral Routine Cirrhosis Alco holic Expected: - Preventive ([facility]) 10/01/2021 services consult Abnormal Liver (Approxim ate), (clinic) Function Test Expires: Ascites 12/01/2022 Pretransplant Recipient Evaluation Exam Preoperative Exam Transplant - Outpatient Referral Routine Cirrhosis Alcoholic E xpected: Psychiatry and ([facility]) 09/22/2021 Psychology consult Abnormal Liver (Approx imate), (clinic) Function Test Expires: Ascites 12/01/2022 Pretransplant Recipient Evaluation Exam Preoperative Exam Transplant - Outpatient Referral Routine Cirrhosis Alcoholic E xpected: Psychiatry and (HCC) 09/22/2021 Psychology consult Abnormal Liver (Approx imate), [...] Mineral Density (BMD) analysis perf ormed on [employer] with serial number [id number]. ? FINDINGS: Left Hip: Femur Neck: BMD [...] Mineral Density (BMD) analysis perf ormed on [employer] with serial number [id number]. FINDINGS: Left Hip: Femur Neck: BMD = [...] CDT) P athologist Signature FVC 4.04 L [facility] FVC% 111 % [facility] FVCLLN 2.88 L [facility] FEV1 3[facility]62 L [facility] FEV1% 118 % [facility] [id number] 2.45 L [facility] FEV1/FVC 90 % [facility] FEV1/FVCLLN 73 % [facility] FEF 25-75 5.30 L/sec [facility] [id number]% 154 % [facility] [id number] 2.20 L/sec [facility] SVC 4.19 L [facility] RV 1.17 L [facility] SUITE RVULN 2.33 L [facility] TLC 5.36 L [facility] TLC% 111 % [facility] SUITE TLCLLN 3.47 L [facility] SU[facility] RV/TLC 22 % [facility] SU[facility] RV/TLC% 72 % [facility] RV/TLCuln 44 % [facility] DLCO 16.63 ml/min/mmHg [facility] DLCO% 77 % [facility] DLCOlln 15.76 ml/min/mmHg [facility] DLCOc 20.09 ml/min/mmHg [facility] DLCOc% 94 % [facility] VA 5.32 L [facility] VA% 115 % [facility] VAlln 3.76 L [facility] Height 159.00 [facility] Weight in Kg 59.70 [facility] BMI 23.6 [facility] Specimen (Source) Anatomical Collection Method Collection Time Re ceived Time Location / / Volume Laterality 10/07/2021 2:32 PM CDT Impressions [facility] - 10/10/2021 8:25 AM C DT TECHNICAL [...] M.D., M.P.H. PFT ORDERABLES Performing Organization Address City/[facility]/ZIP Code Phon e Number [facility] NA Ethyl Glucuronide Screen with Reflex, Urine (09/30/2021 8:23 AM CDT) [employer] Method Time Signature Ethyl Negative Cutoff: 09/30/2021 [facility] Glucuronide Scrn 500 ng/mL 11:12 AM CDT w/Reflex, U Comment: ----ADDITIONAL INFORMATION---- This test was developed and its performa nce characteristics determined by [facility] in a manner consistent with CLIA requirements. This test has not been cleared or approved by the [place] and Drug Administration. Specimen Anatomical Collection Method Collection Time Receive d Time (Source) Location / / Volume Laterality Urine (Urine, 09/30/2021 8:23 AM 10/01/19 22 9:59 Midstream) CDT AM CDT Warren Connor M.D., M.P.H. LAB URINE ORDERABLES Performing Organization Address City/[facility]/ZIP Code Phon e Number [facility] [address] [place], [place] [address] [address] [facility] [facility] [place] [place] [address] Laboratory Medicine and Pathology [address] [place] (ABNORMAL) Bacterial Culture, Aerobic + [facility], Urine (09/30/2021 8:23 AM CDT) Component Value Ref Test Analysis Performed At [employer] [facility] Method Time Signature Urine Culture STAPHYLOCOCCUS EPIDERMIDIS [...] Organization Address City/State/ZIP Code Phon e Number [facility] - [facility] [place], [place] [address] [facility] [place] [address] [facility] [address] [facility] (ABNORMAL) Drug Abuse Survey with Confirmation, Panel 9, Urine (09/30/2021 8:23 AM CDT) Component Value Ref Test Analysis Performed At [facility] Range Method Time Signature Alcohol [...] Positive Cutoff: 50 ng/mL 09/30/2021 11:12 AM SDS (A) CDT Comment: This immunoassay targets delta-9 tetrahy drocannabinol carboxylic acid (THC-COOH), a metabolite of delta-9 tetr ahydrocannabinol the main psychoactive ingredient of marijuana. Drug confirmation to follow. ??Presumpti ve Positive means that the screening method is positive, but the test needs t o be run by a confirmatory method before being finalized. ----ADDITIONAL INFORMATION---- This report is intended for use in clini daa monitoring or management of patients. ??It is not intended for use i n employment-related testing. This test has been modified from the man ufacturer's instructions. Its performance characteristics were determi foreign by [facility] in a manner consistent with [...] Organization Address City/State/ZIP Code Phon e Number [facility] [address] [place] [address] [address] [facility] [place] [address] Laboratory Medicine and Pathology [address] [place] Urinalysis with Microscopic: Urine, Midstream (09/30/2021 8:23 AM CDT) [facility] Method Time Signature Source Urine, [...] M.P.H. LAB URINE ORDERABLES Performing Organization Address [facility] Phon e Number [facility] - [address] [place] [address] Transplant ABO Confirmation (09/30/2021 7:43 AM CDT) P athologist Signature Transplant ABO B Pos 09/30/2021 ETRM Confirmation 11:13 AM CDT Specimen Anatomical Collection Method Collection Time Receive d Time (Source) Location / / Volume Laterality Blood (Blood, 09/30/2021 7:43 AM 10/01/19 22 Venous) CDT 10:06 AM CDT Warren Connor M.D., M.P.H. LAB BLOOD BANK TEST OR DERABLES Performing Organization Address City/[facility] Phon e Number [facility] - [address] [place], [place] [address] [facility] ETRM [address] (ABNORMAL) Hemoglobin A1c (09/30/2021 7:39 AM [...] Organization Address City/State/ZIP Code Phon e Number [facility] - [address] [place], [place] [address] [facility] [place] [address] [facility] [address] (ABNORMAL) CBC no call back, reflex T/S HGB <8 (09/30/2021 7:39 AM CDT) [employer] gist Method Time Signature Hemoglobin 8.9 (L) [...] LAB BLOOD NON ADD-ON Performing Organization Address City/[facility] Phon e Number [facility] - [address] [place] [address] [facility] [place] [address] [facility] 200 [facility] (ABNORMAL) Oeonm-1-Duwdqxsoabk Proteotype S/Z by LC-MS/MS (09/30/2021 7:38 AM CDT) athologist Signature Jkpfv-5-Gxqjzd 211 (H) 100 - 190 10/01/2021 [facility] ypsin, S mg/dL 9:47 AM CDT Comment: ----ADDITIONAL INFORMATION---- Method: Nephelometry Interpretation S Mutation: Negative 10/02/2021 3:3 2 PM CDT [facility] Z Mutation: Negative Results most consistent with MM phenotype. Comment: ----ADDITIONAL INFORMATION---- This test was developed and its performa nce characteristics determined by [facility] in a manner consistent with CLIA requirements. This test has not been cleared or approved by the [place] and Drug Administration. Specimen Anatomical Collection Method Collection Time Receive d Time (Source) Location / / Volume Laterality Blood (Blood, 09/30/2021 7:38 AM 10/02/19 22 6:06 Venous) CDT AM CDT Warren Connor M.D., M.P.H. LAB BLOOD NON ADD-ON Performing Organization Address City/State/RUST Code Phon e Number [facility] [address] [place], [place] [address] [address] [facility] [place] [address] Laboratory Medicine and Pathology [address] [place] Phosphatidylethanol (Peth), whole blood- Sent Out Lab (09/30/2021 7:38 AM CDT) Component Value Ref Range Test Analysis Performed Pathologis t Method Time At Signature Phosphatidylethanol NEGATIVE NEGATIVE 10/03/2021 MTI (PEth) ng/mL 10:27 PM CDT Comment: Analyzed compound: PEth 16:0/18:1. ? 1-reomcnioi-1-egbcap-yl-andzetm-3 -phosphoethanol. ? Analysis performed by Liquid Chromatogra [...] Organization Address City/State/ZIP Code Phon e Number [employer] [address] [place] [address] 2 [employer] [address] hCG (Human Chorionic Gonadotropin), Quantitative, [...] Organization Address City/State/ZIP Code Phon e Number [facility] - [address] [place], [place] [address] [place] [address] [facility] [address] (ABNORMAL) AFP (Alpha-Fetoprotein), Tumor Marker (09/30/2021 7:38 AM CDT) athologist Signature Alpha-Fetoprote 14 (H) ng/mL 09/30/2021 [facility], Tumor 4:01 PM CDT Marker, S [...] method is an immunoenzymatic assay manufactured by [employer]. and is tested on the Richie Awareness Card [employer] DxI 800. Values obtained with different [...] M.P.H. LAB BLOOD ADD-ON Performing Organization Address [facility] Phon e Number [facility] [address] [place] [address] 05 [facility] [place] [address] Laboratory Medicine and Pathology [address] [place] [address] Dr. CHAPPELL Vitamin E Level (09/30/2021 7:38 AM CDT) [facility] A-Tocopherol, 6.3 5.5 - 17.0 10/01/2021 [facility] Vitamin E mg/L 1:44 PM CDT Comment: ----ADDITIONAL INFORMATION---- This test was developed and its performa nce characteristics determined by [facility] in a manner consistent with CLIA requirements. This test has not been cleared or approved by the U.S. Meggan d and Drug Administration. Specimen Anatomical Collection Method Collection Time Receive d Time (Source) Location / / Volume Laterality Blood (Blood, 09/30/2021 7:38 AM 10/01/19 22 Venous) CDT 11:15 AM CDT Warren Connor M.D., M.P.H. LAB BLOOD NON ADD-ON Performing Organization Address [facility] Phon e Number [facility] [address] [place] [address] Dr [place] [address] 05 [facility] [place] [address] Laboratory Medicine and Pathology [address] [place] [address] Dr. CHAPPELL 25-Hydroxyvitamin D2 and D3 (09/30/2021 [...] and its performa nce characteristics determined by [facility] in a manner consistent with [...] Organization Address City/State/ZIP Code Phon e Number [facility] [address] [place], [place] [address] [place], [place] [address]t. [place] [address] Laboratory Medicine and Pathology [address] CHAPPE[place] (ABNORMAL) Vitamin A Level (09/30/2021 7:38 AM CDT) athologist Signature Vitamin A 9.5 (L) 32.5 - 78.0 10/01/2021 SDS mcg/dL 11:30 AM CDT Comment: In this sample, the retinol (vitamin A) level indicates a severe deficiency. ----ADDITIONAL INFORMATION---- This test was developed and its performa nce characteristics determined by [facility] in a manner consistent with [...] Organization Address City/State/ZIP Code Phon e Number [facility] [address] [place], [place] [address] [address] [facility] [place] [address] Laboratory Medicine and Pathology [address] [place]AP[place]LL HLA Class II Typing by Low Resolution, Recipient (09/30/2021 7:38 AM CDT) [facility] Method Time Signature DRB1 - 1 DR4 Not 10/10/2021 DBB8 Equivalent Applicable 10:12 AM CDT DRB1 - 2 DR16 Not 10/10/2021 DBB8 Equivalent Applicable 10:12 AM CDT DRB1 - 1 DRB1*04:01 Not 10/10/2021 DBB8 Molecular Applicable 10:12 AM CDT DRB1 - 2 DRB1*16:02 Not 10/10/2021 DBB8 Molecular Applicable 10:12 AM CDT PLC752 - 1 DR53 Not 10/10/2021 DBB8 Equivalent Applicable 10:12 AM CDT EUA347 - 2 DR51 Not 10/10/2021 DBB8 Equivalent Applicable 10:12 AM CDT KWL999 - 1 DRB4*01:03 Not 10/10/2021 DBB8 Molecular Applicable 10:12 AM CDT GKD690 - 2 DRB5*02:02 Not 10/10/2021 DBB8 Molecular [...] and its performa nce characteristics determined by [facility] in a manner co nsistent with CLIA requirements. This test has not been norah ared or approved by the U.S. Food and Drug Administration. CLIA: [id number] ??CLIA Audio Visual Manager: THAIS CAR MD,PhD Specimen Anatomical Collection Method Collection Time Receive d Time (Source) Location / / Volume Laterality Blood (Blood, 09/30/2021 7:38 AM 10/01/19 22 8:12 Venous) CDT AM CDT Warren Connor M.D., M.P.H. LAB HLA ORDERABLES Performing Organization Address City/State/ZIP Code Phon e Number [facility] - [address] [place] [address] [facility] DBB8 [place] [address] [facility] [address] [facility] HLA Class I Typing by Low Resolution, Recipient (09/30/2021 7:38 AM CDT) [employer] gist Method Time Signature A - 1 [...] and its performa nce characteristics determined by [facility] in a manner co nsistent with CLIA requirements. This test has not been norah ared or approved by the U.S. Food and Drug Administration. CLIA: [id number] ??CLIA Audio Visual Manager: THAIS CAR MD,PhD Specimen Anatomical Collection Method Collection Time Receive d Time (Source) Location / / Volume Laterality Blood (Blood, 09/30/2021 7:38 AM 10/01/19 8:12 Venous) CDT AM CDT Warren Connor M.D., M.P.H. LAB HLA ORDERABLES Performing Organization Address City/State/ZIP Code Phon e Number [facility] - [address] [place], [place] [address] [facility] DBB8 [place] [address] [facility] [address] Folate (09/30/2021 7:38 AM CDT) P athologist Signature Folate, S >20.0 >=4.0 mcg/L 09/30/2021 9:31 DTL AM CDT Specimen Anatomical Collection Method Collection Time Receive d Time (Source) Location / / Volume Laterality Blood (Blood, 09/30/2021 7:38 AM 10/01/19 22 8:07 Venous) CDT AM CDT Warren Connor M.D., M.P.H. LAB BLOOD ADD-ON Performing Organization Address City/[facility] Phon e Number [facility] - [address] [place], [place] [address] 05 [facility] [place] [address] Laboratories-[address] (ABNORMAL) Parathyroid Hormone (PTH) (09/30/2021 7:38 [...] M.P.H. LAB BLOOD ADD-ON Performing Organization Address City/[facility]UST Code Phon e Number [facility] - [address] [place], [place] [address] 05 [place] [address] Laboratories-[place] [address] [address] [facility] T4 (Thyroxine), Free (09/30/2021 7:38 AM CDT) P athologist Signature T4 (Thyroxine), 1.3 0.9 - 1.7 09/30/2021 DTL Free, S ng/dL 10:47 AM CDT Specimen Anatomical Collection Method Collection Time Receive d Time (Source) Location / / Volume Laterality Blood (Blood, 09/30/2021 7:38 AM 10/01/19 22 8:07 Venous) CDT AM CDT Warren Connor M.D., M.P.H. LAB BLOOD ADD-ON Performing Organization Address City/[facility] Phon e Number [facility] - [address] (ABNORMAL) S-TSH (Thyroid-Stimulating Hormone - Sensitive) [...] M.P.H. LAB BLOOD ADD-ON Performing Organization Address [facility] Phon e Number [facility] - [address] Type and Screen (with reflex Antibody ID) (09/30/2021 7:38 AM CDT) Patholo gist Method Time Signature ABORh B Pos Not 09/30/2021 ETRM applicable 11:13 AM CDT Antibody Negative Negative 09/30/2021 ETRM Screen 11:21 AM CDT Type & Screen 10/03/2021 09/30/2021 ETRM Expiration 23:59 11:13 AM CDT Testing [place] DEFAULT 09/30/2021 ETRM Location 10:17 AM CDT Specimen Anatomical Collection Method Collection Time Receive d Time (Source) Location / / Volume Laterality Blood (Blood, 09/30/2021 7:38 AM 10/01/19 22 Venous) CDT 10:17 AM CDT Warren Connor M.D., M.P.H. LAB BLOOD BANK TEST OR DERABLES Performing Organization Address City/[facility] Phon e Number [facility] - [address] [place] [address] 05 [facility] [place] [address] QuantiFERON-Tb Gold Plus, Blood (09/30/2021 7:38 [...] 10/01/19 9:36 Venous) CDT AM CDT Narrative [facility] - 10/01/2021 10:03 AM CDT Specimen Information: Specimen ID: [id number] Specimen Type: Blood Specimen Collection Start Date: 10/01/19 ??7:38 AM Specimen Received Date: 09/30/2021 ??9:3 6 AM Specimen ID: [id number] Specimen Type: Blood Specimen Collection Start Date: 10/01/19 ??7:38 AM Specimen Received Date: 09/30/2021 ??9:3 6 AM Specimen ID: [id number] Specimen Type: Blood Specimen Collection Start Date: 10/01/19 ??7:38 AM Specimen Received Date: 09/30/2021 ??9:3 6 AM Specimen ID: [id number] Specimen Type: Blood Specimen Collection Start Date: 10/01/19 ??7:38 AM Specimen Received Date: 09/30/2021 ??9:3 6 AM Warren Connor M.D., M.P.H. LAB MICROBIOLOGY - BLO OD ORDERABLES Performing Organization Address City/[facility] Phon e Number [facility] [address] [place], [place] [address] SUPPORT [facility] [place] [address] Laboratory Medicine and Pathology [address] [place] [address] Dr. CHAPPELL HCV RNA Detect / Quant, Serum (09/30/2021 7:38 AM CDT) [employer] gist Method Time Signature HCV RNA Undetected Undetected 10/01/2021 [facility] Detect/Quant, IU/mL 12:31 PM S CDT Comment: Result in log IU/mL is Undetected. ----ADDITIONAL INFORMATION---- The quantification range of this assay i s 15 to 100,000,000 IU/mL (1.18 log to 8.00 log IU/mL). Testing was performe d using the john HCV test ([employer] with the john 6800 System. Specimen Anatomical Collection Method Collection Time Receive d Time (Source) Location / / Volume Laterality Blood (Blood, 09/30/2021 7:38 AM 10/01/19 Venous) CDT 10:15 AM CDT Warren Connor M.D., M.P.H. LAB MICROBIOLOGY - BLO OD ORDERABLES Performing Organization Address City/[facility] Phon e Number [facility] [address] [place], [place] [address] SUPPORT [facility] [place] [address] Laboratory Medicine and Pathology [address] [place] [address] Dr. CHAPPELL HCV Ab Scrn w/Reflex to HCV PCR, Serum (09/30/2021 7:38 AM CDT) athologist Signature HCV Ab Screen, Negative Negative 09/30/2021 [facility] S 2:11 PM CDT Comment: Nzjzgh-ht-tysnmi ratio is <1.00 . Specimen Anatomical Collection Method Collection Time Receive d Time (Source) Location / / Volume Laterality Blood (Blood, 09/30/2021 7:38 AM 10/01/19 22 Venous) CDT 10:15 AM CDT Warren Connor M.D., M.P.H. LAB MICROBIOLOGY - BLO OD ORDERABLES Performing Organization Address [facility] Phon e Number [address] [place] [address] Laboratory Medicine and Pathology [address] [place] [address] Dr. CHAPPELL HBc Total Ab Scrn, S (09/30/2021 7:38 AM CDT) athologist Signature HBc Total Ab Negative Negative 09/30/2021 [facility] Scrn, S 2:11 PM CDT Specimen Anatomical Collection Method Collection Time Receive d Time (Source) Location / / Volume Laterality Blood (Blood, 09/30/2021 7:38 AM 10/01/19 22 Venous) CDT 10:15 AM CDT Warren Connor M.D., M.P.H. LAB MICROBIOLOGY - BLO OD ORDERABLES Performing Organization Address [facility] Phon e Number [address] [place] [address] [place] [address] Laboratory Medicine and Pathology [address] [place] [address] Dr. CHAPPELL HBs Antibody Scrn, S (09/30/2021 7:38 AM CDT) athologist Signature HBs Antibody Positive 09/30/2021 [facility] Scrn, S 2:20 PM CDT Comment: Patient is considered to be immune to in fection with HBV. ----REFERENCE VALUE---- Unvaccinated: Negative Vaccinated: Positive HBs Antibody, Quantitative, S 15.2 mIU/mL 09/30/2021 2:20 PM CDT [facility] Comment: ----REFERENCE VALUE---- Unvaccinated: <5.0 Vaccinated: >=12.0 Specimen Anatomical Collection Method Collection Time Receive d Time (Source) Location / / Volume Laterality Blood (Blood, 09/30/2021 7:38 AM 10/01/19 Venous) CDT 10:15 AM CDT Warren Connor M.D., M.P.H. LAB MICROBIOLOGY - BLO OD ORDERABLES Performing Organization Address [facility] Phon e Number [facility] [address] [place], [place] [address] [facility] [place] [address] Laboratory Medicine and Pathology [address] [place] [address] Dr. CHAPPELL Hepatitis A IgM Ab, Serum (09/30/2021 7:38 AM CDT) athologist Signature Hepatitis A Negative Negative 09/30/2021 [facility] IgM Ab, S 1:17 PM CDT [...] - BLO OD ORDERABLES Performing Organization Address [facility] Phon e Number [facility] [address] [place], [place] [address] 05 [facility] [place] [address] Laboratory Medicine and Pathology [address] [place] [address] Dr. CHAPPELL Hepatitis A IgG Ab, Serum (09/30/2021 7:38 AM CDT) athologist Signature Hepatitis A Negative 09/30/2021 [facility] IgG Ab, S 1:17 PM CDT [...] - BLO OD ORDERABLES Performing Organization Address City/[facility]/ZIP Code Phon e Number [facility] [address] [place], [place] [address] [facility] [place] [address] Laboratory Medicine and Pathology [address] [place] [address] Dr. CHAPPELL HIV-1/-2 Ag and Ab Screen, Plasma (09/30/2021 7:38 AM CDT) athologist Signature HIV-1/-2 Ag Negative Negative 09/30/2021 [facility] and Ab Screen, 1:16 PM CDT [...] - BLO OD ORDERABLES Performing Organization Address City/[facility]/ZIP Code Phon e Number [facility] [address] [place], [place] [address] [facility] [place] [address] Laboratory Medicine and Pathology [address] [place] [address] Dr. CHAPPELL Phosphorus Inorganic (09/30/2021 7:38 AM [...] Organization Address City/State/ZIP Code Phon e Number [facility] - [address] [place], [place] [address] 05 [facility] [place] [address] [facility] [address] Lipid [...] Organization Address City/State/ZIP Code Phon e Number [facility] - [address] [place], [place] [address] [facility] [place] [address] [facility] [address] [...] Organization Address City/State/ZIP Code Phon e Number [facility] - 200 [place], [place] [address] [facility] [place] [address] [facility] [address] [facility] (ABNORMAL) Hepatic Function Panel (09/30/2021 7:38 AM CDT) [facility] Method Time Signature Bilirubin, Total, S [...] Organization Address City/State/ZIP Code Phon e Number [facility] - 200 [place], [place] [address] [facility] [place] [address] [facility] [address] [facility] (ABNORMAL) Basic Metabolic Panel (09/30/2021 [...] 09/30/2021 DTL Black/ mL/min/BSA 10:29 AM CDT [place] Comment: ----ADDITIONAL INFORMATION---- Estimated GFR calculated using [...] Organization Address City/State/ZIP Code Phon e Number [facility] - [address] [place], [place] [address] [facility] [place] [address] [facility] [address] Rubella Antibodies, IgG (09/30/2021 7:37 AM CDT) athologist Signature Rubella Ab, Positive 09/30/2021 [facility] IgG, S 11:25 AM CDT Comment: Results suggest response to immunization or prior exposure to the virus. ----REFERENCE VALUE---- Vaccinated: Positive (>=1.0 AI) Unvaccinated: Negative (<=0.7 AI) Rubella IgG Antibody Index 5.9 09/30/2021 11 :25 AM CDT [facility] Specimen Anatomical Collection Method Collection Time Receive d Time (Source) Location / / Volume Laterality Blood (Blood, 09/30/2021 7:37 AM 10/01/19 22 Venous) CDT 10:37 AM CDT Warren Connor M.D., M.P.H. LAB MICROBIOLOGY - BLO OD ORDERABLES Performing Organization Address [facility] Phon e Number [address] [place] [address] [place] [address] Laboratory Medicine and Pathology [address] [place] [address] Dr. CHAPPELL Measles (Rubeola) Ab, IgG (09/30/2021 7:37 AM CDT) athologist Signature Measles Positive 09/30/2021 [facility] (Rubeola) Ab, 11:25 AM CDT IgG, S Comment: Results suggest response to immunization or prior exposure to the virus. ----REFERENCE VALUE---- Vaccinated: Positive (>=1.1 AI) Unvaccinated: Negative (<=0.8 AI) Measles IgG Antibody Index >8.0 09/30/2021 11 :25 AM CDT [facility] Specimen Anatomical Collection Method Collection Time Receive d Time (Source) Location / / Volume Laterality Blood (Blood, 09/30/2021 7:37 AM 10/01/19 22 Venous) CDT 10:37 AM CDT Warren Connor M.D., M.P.H. LAB MICROBIOLOGY - BLO OD ORDERABLES Performing Organization Address City/[facility] Phon e Number [facility] [address] [place], [place] [address] 05 [facility] [place] [address] Laboratory Medicine and Pathology [address] [place] [address] Dr. CHAPPELL (ABNORMAL) Zinc (09/30/2021 7:37 AM CDT) P athologist Signature Zinc, S 0.39 (L) 0.66 - 1.10 09/30/2021 [facility]SC mcg/mL 12:56 PM CDT Comment: ----ADDITIONAL INFORMATION---- This test was developed and its performa nce characteristics determined by [facility] in a manner consistent with CLIA requirements. This test has not been cleared or approved by the U.S. Meggan d and Drug Administration. Specimen Anatomical Collection Method Collection Time Receive d Time (Source) Location / / Volume Laterality Blood (Blood, 09/30/2021 7:37 AM 10/01/19 Venous) CDT 10:12 AM CDT Warren Connor M.D., M.P.H. LAB BLOOD NON ADD-ON Performing Organization Address [facility] Phon e Number [address] [place] [address] 05 SUPPORT [facility] [place] [address] Laboratory Medicine and Pathology [address] [place] [address] Dr. CHAPPELL Toxoplasma gondii Antibody, IgG (09/30/2021 7:37 AM CDT) Analysis Performed At Patho logist Time Signature Toxoplasma Ab, Negative Negative 09/30/2021 [facility] IgG, S 11:25 AM CDT Toxoplasma IgG <3 IU/mL 09/30/2021 [facility] Value 11:25 AM CDT Comment: ----REFERENCE VALUE---- <=9 IU/mL (Negative) 10-11 IU/mL (Equivocal) >=12 IU/mL (Positive) Specimen Anatomical Collection Method Collection Time Receive d Time (Source) Location / / Volume Laterality Blood (Blood, 09/30/2021 7:37 AM 10/01/19 22 Venous) CDT 10:37 AM CDT Warren Connor M.D., M.P.H. LAB MICROBIOLOGY - BLO OD ORDERABLES Performing Organization Address City/[facility] Phon e Number [address] [place], [place] [address] [facility] [place] [address] Laboratory Medicine and Pathology [address] [place] [address] Dr. CHAPPELL Mumps Ab, IgG (09/30/2021 7:37 AM CDT) P athologist Signature Mumps Ab, IgG, Positive 09/30/2021 [facility] S 11:25 AM CDT Comment: Results suggest response to immunization or prior exposure to the virus. ----REFERENCE VALUE---- Vaccinated: Positive (>=1.1 AI) Unvaccinated: Negative (<=0.8 AI) Mumps IgG Antibody Index 6.1 09/30/2021 11:2 5 AM CDT [facility] Specimen Anatomical Collection Method Collection Time Receive d Time (Source) Location / / Volume Laterality Blood (Blood, 09/30/2021 7:37 AM 10/01/19 Venous) CDT 10:37 AM CDT Warren Connor M.D., M.P.H. LAB MICROBIOLOGY - BLO OD ORDERABLES Performing Organization Address [facility] Phon e Number [facility] [address] [place], [place] [address] [facility] [place] [address] Laboratory Medicine and Pathology [address] [place] [address] Dr. CHAPPELL Syphilis IgG w/ Reflex, EIA, S (09/30/2021 7:37 AM CDT) Patholo gist Method Time Signature Syphilis IgG Nonreactive Nonreactive 10/01/2021 [facility] w/ Reflex, 3:00 PM CDT EIA, S Comment: No serologic evidence of infection with T. pallidum (syphilis). ??Repeat testing may be cons idered in patients with suspected acute or primary syphilis in 2-4 weeks. For additional information on interpreta tion of the syphilis reverse algorithm and resul ts, see: [email or web address] Specimen Anatomical Collection Method Collection Time Receive d Time (Source) Location / / Volume Laterality Blood (Blood, 09/30/2021 7:37 AM 10/01/19 Venous) CDT 10:12 AM CDT Warren Connor M.D., M.P.H. LAB MICROBIOLOGY - BLO OD ORDERABLES Performing Organization Address [facility] Phon e Number [facility] [address] [place] [address] [place], [place] [address]. [place] [address] Laboratory Medicine and Pathology [address] [place]AP[place] EBV Ab Profile (09/30/2021 7:37 AM CDT) Patholo gist Method Time Signature EBV VCA IgM Ab, S Negative Negative 09/30/2021 [facility] 11:25 AM CDT EBV VCA IgG Ab, S Positive Negative 09/30/2021 [facility] 11:25 AM CDT EBNA Ab, S Positive Negative 09/30/2021 [facility] 11:25 AM CDT Interpretation SEE COMMENT 09/30/2021 [facility] 11:25 AM CDT Comment: Results suggest [...] City/State/ZIP Code Phon e Number [facility] [address] [place] [address] [place] [address] Laboratory Medicine and Pathology [address] [place] [address] Dr. CHAPPELL Varicella-Zoster Ab, IgM and IgG (09/30/2021 7:37 AM CDT) P athologist Signature Varicella-Zost Positive 09/30/2021 [facility] er Ab, IgG, S 11:25 AM CDT Comment: Results suggest response to immunization or prior exposure to the virus. ----REFERENCE VALUE---- Vaccinated: Positive (>=1.1 AI) Unvaccinated: Negative (<=0.8 AI) Varicella IgG Antibody Index 3.9 09/30/2021 11:25 AM CDT [facility] Varicella-Zoster Ab, IgM, S Negative Negative 10/01/2021 2 :23 PM CDT [facility] Specimen Anatomical Collection Method Collection Time Receive d Time (Source) Location / / Volume Laterality Blood (Blood, 09/30/2021 7:37 AM 10/01/19 22 Venous) CDT 10:37 AM CDT Warren Connor M.D., M.P.H. LAB MICROBIOLOGY - BLO OD ORDERABLES Performing Organization Address City/[facility] Phon e Number [facility] [address] [place] [address] 05 [facility] [place] [address] Laboratory Medicine and Pathology [address] [place] [address] Dr. CHAPPELL HSV Types 1 and 2 [...] - BLO OD ORDERABLES Performing Organization Address City/[facility] Phon e Number [facility] [address] [place] [place] [address] Laboratory Medicine and Pathology [address] [place] [address] Dr. CHAPPELL Cytomegalovirus Ab, IgM and IgG [...] - BLO OD ORDERABLES Performing Organization Address City/[facility]/ZIP Code Phon e Number [facility] [address] [place], [place] [address] [address] [facility] [place] [address] Laboratory Medicine and Pathology [address] [place] (ABNORMAL) Prothrombin Time (PT) (09/30/2021 7:37 AM CDT) [employer] gist Method Time Signature Prothrombin 28.8 (H) [...] M.P.H. LAB BLOOD ADD-ON Performing Organization Address City/[facility] Phon e Number [facility] - [address] [place], [place] [address] [place], [place] [address] [facility] [address] [...] (HCC) documented in this encounter Care Teams Account Manager B2B Relationship Specialty Start Date End Date Elsewhere, Pcp PCP - General Family Medicine 03/10/20 11/30/21 [facility] [place] [facility] 08/25/21 Ervin Schroeder MD Referring Provider Family Medicine 03/24/[address] [place] [address] documented as of this encounter
--- OUTSIDE RECORDS SUMMARY | 2022-02-14 22:10 | XMS_ITS | Encounter Summary ---
:1990 Author Organization [facility] Address [address] [place] [address] Care Team Providers Name Role Phone Elsewhere, Pcp Primary Care Provider Unavailable Reason for Visit Reason Comments Referral - Liver Txp Encounter Details Date Type Department Care Team Description 08/14/2021 Clinical Department of Matthew Jerome Referral - Angelica er Communication Gastroenterology in , M.B.B.S., [place], [place] M.D [address] [facility] [address] [place] [address] [facility] [phone] [place] [phone] Social History Tobacco Use Types Packs/Day Years [...] you attend gnosticism or Patient refused 2021 scientologist services? Do [...] or the highest technical, or vocational p [facility] degree you have received? 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 Jerome wrapping 09/17. After speaking with patient, our hopes are that the remaining testing can be done in [place] the week prior (09/08). Mihaela, I have left the orders in our WQ and they say LTE [place] on them. Feel free to reroute the orders as neccessary! Let [place] [facility] know if you are unable to schedule testing 09/08 week and we can try scheduling the test in [place] instead. Our TTE echoes are going out [...] 6:55 PM CDT ----- Regarding: Liver transplant [id number] Dear team Kindly please submit [id number] for this patient. I had an initial visit with her, and I hope we can complete a liver transplant evaluation on her behalf. I will see her back for a wrap-up visit here in [place]. She will need full workup and consultations, especially Cardiology (abnormal echo 2020) and transplant psychiatry given her psych history. Thanks OM documented in this encounter Plan of Treatment Upcoming Encounters Date Type Specialty Care Team Description Telemedicine Transplant 2 Appointment Radiology Matthew Jerome 2, M.B.B.S., M.D. [address] [place] [phone] Appointment Gastroenterology and Adrianne, 2 Hepatology Yue Burciaga M.D. [address] [place] [address] Virtual Visit Transplant Matthew Jerome 2 Tyrell Rodriguez M.D. [address] [place] [phone] Office Visit Gastroenterology and Matthew Jerome 2 Hepatology Tyrell Rodriguez M.D. [address] [place] [phone] Appointment Radiology LuisMatthew abdul 2 Tyrell Rodriguez M.D. [address] [place] [phone] Hospital Gastroenterology and Matthew Jerome Cirrhos is Alcoholic (HCC) 2 Encounter Hepatology Joshua RodriguezBLilian Staples [address] [place] [phone] Anesthesia Event Gastroenterology and Rl, 2 Hepatology Ervin Burgos M.D. [address] [place] [phone] Surgery Gastroenterology and Matthew Jerome ESOPHAG OGASTRODUODENOSCOPY 2 Hepatology Joshua RodriguezBSumaBLilian Bedolla [address] [place] [phone] Scheduled Procedures Name Priority Associated Diagnoses Date/Time ESOPHAGOGASTRODUODENOSCOPY Cirrhosis Alc oholic (HCC) 03/20/2022 8:45 AM BASEBALL HAND SEWER Hypertension Portal (HCC) documented as of this encounter Visit Diagnoses Not on filedocumented in this encounter Additional Health Concerns Infection Onset Date Last Indicated Resolved Time COVID19 Pending 08/29/2021 08/29/2021 08/29/2021 11:29 PM CDT COVID19 08/29/2021 08/29/2021 09/18/2021 8:31 AM CDT documented as of this encounter Care Teams Coal Pulverizing Operator Relationship Specialty Start Date End Date Elsewhere, Pcp PCP - General Family Medicine 03/10/20 11/30/21 [facility] [place] [facility] 08/25/21 Ervin Schroeder MD Referring Provider Family Medicine 03/24/[address] [place] [phone] documented as of this encounter
--- OUTSIDE RECORDS SUMMARY | 2022-02-14 22:10 | XMS_ITS | Encounter Summary ---
:1990 Author Organization [facility] Address [address] [place] [address] Care Team Providers Name Role Phone Elsewhere, Pcp Primary Care Provider Unavailable Encounter Details Date Type Department Care Team Description 08/26/2021 Clinical Communication Department of Felicita Spicer Gastroenterology in E, L.P.N. [place], [place] [phone] [place] [address] ([facility]) [place] [address] Social History Tobacco Use Types Packs/Day [...] you attend islam or Patient refused 2021 baptist services? 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 - 08/27/2021 1:24 PM CDT Corn Sheller called patient and left a detailed message [...] to schedule the INR at a [facility] lab or she can stopin tomorrow at any [facility] lab to have this drawn. Provided direct [...] CDT Patient in process of discharge from [facility] (see note below). She did receive vitamin [...] and request this be sent to the [facility] in [place]. Upon chart review of past documentation the following was noted by Kerry Naranjo. I have ordered Vitamin K 5 mg X 7 days, to take orally. Then follow up by repeat PT/INR??on the 8th day. Please call pt and ask to get the lab at [facility] in [place]; this allows access to results. Past attempts [...] the patient is currently in patient at [facility] and likely would not be able to start the Rx tonight anyway. Please advise how patient should take vitamin K as she is scheduled for EGD on 09/01/21. A new Rx would need to be sent to the [facility] in [place] as the com writer checked with the pharmacy and the they do not have the vitamin K Rx on file. documented in this encounter Plan of Treatment Upcoming Encounters Date Type Specialty Care Team Description Telemedicine Transplant 2 Appointment Radiology Matthew Jerome 2, M.B.B.S., M.D. [address] [place] [address] Appointment Gastroenterdina and Adrianne, 2 Hepatology Yue Burciaga M.D. [address] [place] [address] Virtual Visit Transplant Matthew Jerome 2 YTyrell M.D. [address] [place] [phone] Office Visit Gastroenterology and Matthew Jerome 2 Hepatology Tyrell Rodriguez M.D. [address] [place] [phone] Appointment Radiology LuisMatthew abdul 2 Tyrell Rodriguez M.D. [address] [place] [phone] Hospital Gastroenterology and Matthew Jerome Cirrhos is Alcoholic (HCC) 2 Encounter Hepatology Tyrell Rodriguez M.D. [address] [place] [phone] Anesthesia Event Gastroenterology and Rl, 2 Hepatology Ervin Burgos M.D. [address] [place] [phone] Surgery Gastroenterology and Queenie Matthew ESOPHAG OGASTRODUODENOSCOPY 2 Hepatology Tyrell Rodriguez M.D. [address] [place] [phone] Scheduled Procedures Name Priority Associated Diagnoses Date/Time ESOPHAGOGASTRODUODENOSCOPY Cirrhosis Alc oholic (HCC) 03/20/2022 8:45 AM SERVICES TECH Hypertension Portal (HCC) documented as of this encounter Visit Diagnoses Not on filedocumented in this encounter Additional Health Concerns Infection Onset Date Last Indicated Resolved Time COVID19 Pending 08/29/2021 08/29/2021 08/29/2021 11:29 PM CDT COVID19 08/29/2021 08/29/2021 09/18/2021 8:31 AM CDT documented as of this encounter Care Teams Bricklayer'S Assistant Relationship Specialty Start Date End Date Elsewhere, Pcp PCP - General Family Medicine 03/10/20 11/30/21 [facility] 08/25/21 Ervin Schroeder MD Referring Provider Family Medicine 03/24/[address] [place] [address] documented as of this encounter
--- OUTSIDE RECORDS SUMMARY | 2022-02-14 22:10 | XMS_ITS | Encounter Summary ---
:1990 Author Organization [facility] Address [address] [place] [address] Care Team Providers Name Role Phone Elsewhere, Pcp Primary Care Provider Unavailable Encounter Details Date Type Department Care Team Description 08/27/2021 Orders Only Department of Mousa, Matthew Y, Cirrhosis Al [facility] Gastroenterology in Joshua Santillan ([facility]) (Primary Dx) [place], [place] 1025 [facility] 1025 [place] [phone] [phone] Social History Tobacco Use Types Packs/Day Years [...] you attend druze or Patient refused 2021 pentecostalism services? 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 [address] [place] [phone] Virtual Visit Transplant Matthew Jerome 2, M.B.B.S., M.D. [address] [place] [phone] Office Visit Gastroenterology and Matthew Jerome 2 Hepatology Tyrell Rodriguez, Lilian [address] [place] [phone] Appointment Radiology [place] Matthew 2 YTyrell, Lilian [address] [place] [phone] Hospital Gastroenterology and [facility] Cirrhos is Alcoholic (HCC) 2 Encounter Hepatology Tyrell Rodriguez, Lilian [address] [place] [phone] Anesthesia Event Gastroenterology and Rl, 2 Hepatology Ervin Burgos M.D. [address] [place] [phone] Surgery Gastroenterology and [facility] ESOPHAG OGASTRODUODENOSCOPY 2 Hepatology Tyrell Rodriguez M.D. [address] [place] [phone] Scheduled Procedures Name Priority Associated Diagnoses Date/Time ESOPHAGOGASTRODUODENOSCOPY Cirrhosis Alc oholic (HCC) 03/20/2022 8:45 AM JR. JAVA DEVELOPER Hypertension Portal (HCC) documented as of this encounter Visit Diagnoses Diagnosis Cirrhosis Alcoholic (HCC) - Primary Cirrhosis Alcoholic (HCC) Cirrhosis Alcoholic (HCC) Hypertension Portal (HCC) documented in this encounter Care Teams Cryptographer Relationship Specialty Start Date End Date Elsewhere, Pcp PCP - General Family Medicine 03/10/20 11/30/21 [facility] [place] [facility] 08/25/21 Ervin Schroeder MD Referring Provider Family Medicine 03/24/[address] [place] [address] documented as of this encounter
--- OUTSIDE RECORDS SUMMARY | 2022-02-14 22:10 | XMS_ITS | Encounter Summary ---
:1990 Author Organization [facility] Address [address] [place] [address] Care Team Providers Name Role Phone Elsewhere, Pcp Primary Care Provider Unavailable Encounter Details Date Type Department Care Team Description 08/11/2021 Hospital Encounter Department of Mousa, Matthew Y, Edema Leg; Laboratory Medicine Joshua Santillan. Cirrhosis Alcoholic (HCC) in [address] [address] [facility] [place] [phone] [address] (Work) [phone] Social History Tobacco Use Types Packs/Day Years [...] you attend moravian or Patient refused 2021 voodoo services? 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 - 08/13/2021 10:53 PM CDT [facility] Please can you notify [...] Radiology Matthew Jerome 2, M.B.B.S., M.D. [address] [place] [phone] Appointment Gastroenterology and Adrianne, 2 Hepatology Yue Burciaga M.D. [address] [place] [address] Virtual Visit Transplant Matthew Jerome 2, M.B.B.S., M.D. [address] [place] [phone] Office Visit Gastroenterology and [facility] 2 Hepatology Tyrell Rodriguez M.D. [address] [place] [phone] Appointment Radiology [facility] 2 Tyrell Rodriguez M.D. [address] [place] [phone] [facility] Gastroenterology and [facility] Cirrhos is Alcoholic (HCC) 2 Encounter Hepatology Tyrell Rodriguez M.D. [address] [place] [phone] Anesthesia Event Gastroenterology and Rl, 2 Hepatology Ervin Burgos M.D. [address] [place] [phone] Surgery Gastroenterology and [facility] ESOPHAG OGASTRODUODENOSCOPY 2 Hepatology Tyrell Rodriguez M.D. [address] [place] [phone] Scheduled Procedures Name Priority Associated Diagnoses Date/Time ESOPHAGOGASTRODUODENOSCOPY Cirrhosis Alc oholic (HCC) 03/20/2022 8:45 AM COMMERCIAL LOAN SPECIALIST Hypertension Portal (HCC) documented as of [...] CDT eGFR-Black/Afri >90 >=60 08/11/2021 [place] can Lao mL/min/BSA 1:53 PM CDT Comment: ----ADDITIONAL INFORMATION---- [...] e Number [facility]- [address] [place] [address] [place] [address] System in [place] [address] [facility] documented in this encounter Visit Diagnoses Diagnosis Edema Leg Cirrhosis Alcoholic (HCC) Cirrhosis Alcoholic (HCC) Cirrhosis Alcoholic (HCC) Hypertension Portal (HCC) documented in this encounter Care Teams Assistant Corporation Counsel Relationship Specialty Start Date End Date Elsewhere, Pcp PCP - General Family Medicine 03/10/20 11/30/21 Ervin Schroeder MD Referring Provider Family Medicine 03/24/211979 [address] [place] [address] documented as of this encounter
--- OUTSIDE RECORDS SUMMARY | 2022-02-14 22:10 | XMS_ITS | Encounter Summary ---
:1990 Author Organization [facility] Address [address] [place] [address] Care Team Providers Name Role Phone Elsewhere, Pcp Primary Care Provider Unavailable Reason for Visit Reason Comments Medical Information Encounter Details Date Type Department Care Team Description 08/30/2021 Nurse Triage Department of Joshua Resendiz, Medical Information Medicine, [facility], [place] [address] [place] [address] Social History Tobacco Use Types Packs/Day Years [...] you attend yarsanism or Patient refused 2021 presybeterian services? Do [...] or the highest technical, or vocational p Sciodermram degree you have received? 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 https://www.cdc.gov/coronavirus/2019-ncov/vaccines/about-vaccines/index.html?s_c qs=95067:covid%20vaccine:sonja.ga:p:RG:GM:gen:PTN: Calling to request: information The recommended disposition is Manage symptoms at home. documented in this encounter Plan of Treatment Upcoming Encounters Date Type Specialty Care Team Description Telemedicine Transplant 2 Appointment Radiology Matthew Jerome 2 YTyrell, Lilian [address] [place] [phone] Appointment Gastroenterology and Adrianne, 2 Hepatology Yue Burciaga M.D. [address] [place] [phone] Virtual Visit Transplant Matthew Jerome 2 Tyrell Rodriguez M.D. [address] [place] [phone] Office Visit Gastroenterology and Matthew Jerome 2 Hepatology Tyrell Rodriguez M.D. [address] [place] [phone] Appointment Radiology Matthew Jerome 2 YTyrell M.D. [address] [place] [phone] Hospital Gastroenterology and [place] Matthew Cirrhos is Alcoholic (HCC) 2 Encounter Hepatology Tyrell Rodriguez M.D. [address] [place] [phone] Anesthesia Event Gastroenterology and Rl, 2 Hepatology Ervin Burgos M.D. [address] [place] [phone] Surgery Gastroenterology and [place] Matthew ESOPHAG OGASTRODUODENOSCOPY 2 Hepatology Tyrell Rodriguez, Lilian [address] [place] [phone] Scheduled Procedures Name Priority Associated Diagnoses Date/Time ESOPHAGOGASTRODUODENOSCOPY Cirrhosis Alc oholic (HCC) 03/20/2022 8:45 AM RUG SETTER VELVET Hypertension Portal (HCC) documented as of this encounter Visit Diagnoses Not on filedocumented in this encounter Additional Health Concerns Infection Onset Date Last Indicated Resolved Time COVID19 08/29/2021 08/29/2021 09/18/2021 8:31 AM CDT documented as of this encounter Care Teams Lining Feller Relationship Specialty Start Date End Date Elsewhere, Pcp PCP - General Family Medicine 03/10/20 11/30/21 [facility] [place] [facility] 08/25/21 Ervin Schroeder MD Referring Provider Family Medicine 03/24/[address] [place] [address] [phone] documented as of this encounter
--- OUTSIDE RECORDS SUMMARY | 2022-02-14 22:11 | XMS_ITS | Encounter Summary ---
:1990 Author Organization [facility] Address [address] [place] [address] Care Team Providers Name Role Phone Elsewhere, Pcp Primary Care Provider Unavailable Reason for Referral Outpatient (Routine) - Closed Specialty Diagnoses / Referred By Contact Referred To Procedures [facility] Katrin VIGIL.NDayne, M.S.N. [address] [place] [address] Referral ID Status Reason Start Date Expiration Date Visits Requ ested Visits Authorized [id number] Closed 07/21/2021 07/21/2022 1 1 edication Prior Authorization - Closed Specialty Diagnoses / Procedures Referred By Contact Refer red To Contact Kerry Naranjo APRN, C.N.Shanita., M.S.N. [address] [place] [phone] Referral ID Status Reason Start Date Expiration Date Visits Requ ested Visits Authorized [id number] Closed 1 1 Reason for Visit Outpatient (Routine) - Closed Specialty Diagnoses / Referred By Contact Referred To Procedures Contact Gastroenterology and Kerry Naranjo, [facility] Hepatology Lowell VIGILNDayne, M.S.N. [address] [place] [address] Referral ID Status Reason Start Date Expiration Date Visits Requ ested Visits Authorized [id number] Closed 04/17/2021 04/17/2022 1 1 Encounter Details Date Type Department Care Team Description 07/21/2021 Telemedicine Department of Kerry Naranjo Cirrhosis Alc oholic (HCC) (Primary Dx); Gastroenterology in S, CONTACT CLERK, Ascites; [place], [place] C.N.P., Deficiency Vitamin D; [address] [facility] M.S.N. Malnutrition Protein-Calorie Unspecified (HCC); [place] [address] [facility]5 [facility] Deficiency Coagulation Acquired (HCC); [phone] [place], [place] Thrombocytopeni a (HCC); [phone] [place]und[place] Social History Tobacco Use Types Packs/Day [...] you attend pentecostal or Patient refused 2021 advent services? 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 - 07/21/2021 2:45 PM [...] tumor marker, zinc -Vitamin A prescribed to [facility], she -ordered Vitamin K 5 mg X [...] a internal medicine provider at [facility] or [place]; if she feels she needs to be seen more urgently; I would recommend the [facility] which is closest to her. For emergency situation she should present to any emergency department that is closest to her. documented in this encounter Progress Notes Kerry Naranjo APRN, C.N.P., M.S.N. - 07/21/2021 2:45 PM CDT Kerry Naranjo APRN, C.N.P., M.S.N. [address] [place] [address] Patient Name: Catia Carias Date of : 1990 Date of encounter: 07/21/21 ELSEWHERE, PCP VIDEO VISIT Consult conducted via real-time audio/video technology by Kerry Naranjo APRN, C.N.P., M.S.N. at the [facility] to the patient in their home. At the time the patient was scheduled, the inside account representative read the following script to the patient: [...] primary care provider Dr. Ervin Schroeder, from [facility] in [facility]; phone [phone], . She stateshe prescribed vitamin-D for GERD [...] and Family: Twice a week ??? Attends [employer]: Never ??? 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 -ordered Vitamin [...] a internal medicine provider at [facility] or [place]; if she feels she needs to be seen more urgently; I would recommend the [facility] which is closest to her. For emergency [...] Naranjo APRN, Katrin.NLala., M.S.N. Gastroenterology and Hepatology [facility] documented in this encounter Plan of Treatment Upcoming Encounters Date Type Specialty Care Team Description Telemedicine Transplant 2 Appointment Radiology Matthew Jerome 2 Y, Tyrell, Lilian [address] [place] [phone] Appointment Gastroenterology and Adrianne, 2 Hepatology Yue Burciaga M.D. [address] [place] [phone] Virtual Visit Transplant Matthew Jerome 2 Joshua RodriguezBSumaBLilian Bedolla [address] [place] [phone] Office Visit Gastroenterology and Matthew Jerome 2 Hepatology Joshua RodriguezBSumaBLilian Bedolla [address] [place] [phone] Appointment Radiology Matthew Jerome 2 Jennifer M.B.B.Lilian [place] [address] [place] [phone] Hospital Gastroenterology and Lu[place] Matthew Cirrhos is Alcoholic (HCC) 2 Encounter Hepatology Joshua RodriguezBSumaBLilian Bedolla [address] [place] [phone] Anesthesia Event Gastroenterology and Rl, 2 Hepatology Ervin Burgos M.D. [address] [place] [phone] Surgery Gastroenterology and LuisNew abdular ESOPHAG OGASTRODUODENOSCOPY 2 Hepatology Jennifer M.B.B.Lilian Stockton [address] [place] [phone] Scheduled Procedures Name Priority Associated Diagnoses Date/Time ESOPHAGOGASTRODUODENOSCOPY Cirrhosis Alc oholic (HCC) 03/20/2022 8:45 AM SUPERVISOR ASSEMBLY AND PACKING Hypertension Portal (HCC) Scheduled Referrals Name Type [...] (HCC) documented in this encounter Care Teams Distribution Manager Relationship Specialty Start Date End Date Elsewhere, Pcp PCP - General Family Medicine 03/10/20 11/30/21 Ervin Schroeder MD Referring Provider Family Medicine 03/24/[address] [place] [phone] documented as of this encounter
--- OUTSIDE RECORDS SUMMARY | 2022-02-14 22:11 | XMS_ITS | Encounter Summary ---
:1990 Author Organization [facility] Address [address] [place] [address] Care Team Providers Name Role Phone Elsewhere, Pcp Primary Care Provider Unavailable Encounter Details Date Type Department Care Team Description 07/25/2021 Clinical Communication Department of Ines Warren, Gastroenterology in [address] [place] [address] [phone] Social History Tobacco Use Types Packs/Day Years [...] you attend islam or Patient refused 2021 pentecostalism services? 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 - 07/25/2021 2:57 PM CDT Patient called back again. Patient states that she is going to call 911 for an ambulance. Patient states that her abdominal pain is bad and she is becoming increasing confused. Patient [facility] to [facility] to[facility] for [facility]. Told patient to request [place] Location. Patient is home alone as her mother and fiance are working [facility]. Telephone Encounter - Kerry Naranjo APRN, C.N.P., M.S.N. - 07/25/2021 2:41 PM CDT AL In case you get a call on this [facility] clinic cirrhotic. Payne Telephone Encounter - Kerry [...] Radiology Matthew Jerome 2 YVikBGraeme, Lilian [address] [place] [phone] Appointment Gastroenterology and Adrianne, 2 Hepatology Yue Burciaga M.D. [address] [place] [phone] Virtual Visit Transplant Matthew Jerome 2 Tyrell Rodriguez, Lilian [address] [place] [address] [phone] Office Visit Gastroenterology and Matthew Jerome 2 Hepatology Joshua RodriguezBSumaBGraeme, Lilian [address] [place] [phone] Appointment Radiology Matthew Jerome 2 YJoshuaBSumaB.Kath, Lilian [address] [place] [address] [phone] Hospital Gastroenterology and Matthew Jerome Cirrhos is Alcoholic (HCC) 2 Encounter Hepatology Vik RodriguezBGraeme, Lilian [address] [place] [phone] Anesthesia Event Gastroenterology and Rl, 2 Hepatology Ervin Burgos M.D. [address] [place] [phone] Surgery Gastroenterology and Mousa, Matthew ESOPHAG OGASTRODUODENOSCOPY 2 Hepatology Tyrell Rodriguez M.D. [address] [place] [phone] Scheduled Procedures Name Priority Associated Diagnoses Date/Time ESOPHAGOGASTRODUODENOSCOPY Cirrhosis Alc oholic (HCC) 03/20/2022 8:45 AM COMMUNITY HEALTH NURSE STAFF Hypertension Portal (HCC) documented as of this encounter Visit Diagnoses Not on filedocumented in this encounter Care Teams Engagement Mgr Relationship Specialty Start Date End Date Elsewhere, Pcp PCP - General Family Medicine 03/10/20 11/30/21 Ervin Schroeder MD Referring Provider Family Medicine 03/24/[address] [place] [phone] documented as of this encounter
--- OUTSIDE RECORDS SUMMARY | 2022-02-14 22:11 | XMS_ITS | Encounter Summary ---
:1990 Author Organization [facility] Address [address] [place] [address] Care Team Providers Name Role Phone Elsewhere, Pcp Primary Care Provider Unavailable Encounter Details Date Type Department Care Team Description 07/23/2021 Orders Only Pharmacy Prior Auth Maye Clements [phone] Social History Tobacco Use Types Packs/Day Years [...] you attend sikhism or Patient refused 2021 gnosticism services? 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 [address] [place] [phone] Appointment Gastroenterology and Adrianne, 2 Hepatology Yue Burciaga M.D. [address] [place] [phone] Virtual Visit Transplant Matthew Jerome 2 Tyrell Rodriguez M.D. [address] [place] [address] [phone] Office Visit Gastroenterology and Matthew Jerome 2 Hepatology Tyrell Rodriguez M.D. [address] [place] [phone] Appointment Radiology Matthew Jerome 2 YTyrell M.D. [address] [place] [address] [phone] Hospital Gastroenterology and [facility] Cirrhos is Alcoholic (HCC) 2 Encounter Hepatology Tyrell Rodriguez M.D. [address] [place] [phone] Anesthesia Event Gastroenterology and [facility], 2 Hepatology Ervin Burgos M.D. [address] [place] [phone] Surgery Gastroenterology and [facility] ESOPHAG OGASTRODUODENOSCOPY 2 Hepatology Tyrell Rodriguez M.D. [address] [place] [phone] Scheduled Procedures Name Priority Associated Diagnoses Date/Time ESOPHAGOGASTRODUODENOSCOPY Cirrhosis Alc oholic (HCC) 03/20/2022 8:45 AM MOTHER BABY RN Hypertension Portal (HCC) documented as of this encounter Visit Diagnoses Not on filedocumented in this encounter Care Teams Spiral Spring Winder Relationship Specialty Start Date End Date Elsewhere, Pcp PCP - General Family Medicine 03/10/20 11/30/21 Ervin Schroeder MD Referring Provider Family Medicine 03/24/[address] [place] [phone] documented as of this encounter
--- OUTSIDE RECORDS SUMMARY | 2022-02-14 22:11 | XMS_ITS | Encounter Summary ---
:1990 Author Organization [facility] Address [address] [place] [address] Care Team Providers Name Role Phone Elsewhere, Pcp Primary Care Provider Unavailable Reason for Visit Reason Comments Leg Swelling Encounter Details Date Type Department Care Team Description 08/01/2021 Nurse Triage [facility] Swelling Medicine, [facility], in [address] [phone] [place] [phone] Social History Tobacco Use Types Packs/Day Years [...] you attend congregational or Patient refused 2021 sabianism services? 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 Photos were sent to her retail manager. History of Alcoholic Cirrhosis, Live failure, chronic [...] or worsening Protocols used: LEG SWELLING AND [id number] documented in this encounter Plan of Treatment Upcoming Encounters Date Type Specialty Care Team Description Telemedicine Transplant 2 Appointment Radiology Matthew Jerome 2 YTyrell M.D. [address] [place] [phone] Appointment Gastroenterology and [facility], 2 Hepatology Yue Burciaga M.D. [address] [place] [phone] Virtual Visit Transplant LuisNew abdular 2 YTyrell M.D. [address] [place] [phone] Office Visit Gastroenterology and LuisNew abdular 2 Hepatology Tyrell Rodriguez M.D. [address] [place] [phone] Appointment Radiology Matthew Jerome 2 YTyrell M.D. [address] [place] [address] [phone] [facility] Gastroenterology and Flusa, Matthew Cirrhos is Alcoholic (HCC) 2 Encounter Hepatology Tyrell Rodriguez, Lilian [address] [place] [address] [phone] Anesthesia Event Gastroenterology and Rl, 2 Hepatology Ervin Burgos M.D. [address] [place] [address] [phone] Surgery Gastroenterology and [facility] [place] ESOPHAG OGASTRODUODENOSCOPY 2 Hepatology Tyrell Rodriguez, Lilian [address] [place] [phone] Scheduled Procedures Name Priority Associated Diagnoses Date/Time ESOPHAGOGASTRODUODENOSCOPY Cirrhosis Alc oholic (HCC) 03/20/2022 8:45 AM PRINCIPAL JAVA SOFTWARE ENGINEER Hypertension Portal (HCC) documented as of this encounter Visit Diagnoses Not on filedocumented in this encounter Care Teams Cardiac Catheterization Technician Relationship Specialty Start Date End Date Elsewhere, Pcp PCP - General Family Medicine 03/10/20 11/30/21 Ervin Schroeder MD Referring Provider Family Medicine 03/24/[address] [place] [phone] documented as of this encounter
--- OUTSIDE RECORDS SUMMARY | 2022-02-14 22:11 | XMS_ITS | Encounter Summary ---
:1990 Author Organization [facility] Address [address] [place] [address] Care Team Providers Name Role Phone Elsewhere, Pcp Primary Care Provider Unavailable Encounter Details Date Type Department Care Team Description 08/01/2021 Clinical Communication [facility] Lester Garber La uren M, [place] M.D. [address] [place] [address] [address] [place] [phone] Social History Tobacco Use Types Packs/Day Years [...] you attend anabaptist or Patient refused 2021 gnosticism services? 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 She has been wrapping [...] Radiology QueenieNewar 2 Tyrell Rodriguez M.D. [address] [place] [phone] Appointment Gastroenterology and Adrianne, 2 Hepatology Yue Burciaga M.D. [address] [place] [phone] Virtual Visit Transplant LuisNew abdular 2 Tyrell Rodriguez M.D. [address] [place] [phone] Office Visit Gastroenterology and QueenieNewar 2 Hepatology Tyrell Rodriguez M.D. [address] [place] [address] [phone] Appointment Radiology Matthew Jerome 2 Tyrell Rodriguez M.D. [address] [place] [phone] Hospital Gastroenterology and QueenieMatthew Cirrhos is Alcoholic (HCC) 2 Encounter Hepatology Tyrell Rodriguez M.D. [address] [place] [phone] Anesthesia Event Gastroenterology and Rl, 2 Hepatology Ervin Burgos M.D. [address] [place] [address] [phone] Surgery Gastroenterology and Mousa, Matthew ESOPHAG OGASTRODUODENOSCOPY 2 Hepatology Tyrell Rodriguez M.D. [address] [place] [address] [phone] Scheduled Procedures Name Priority Associated Diagnoses Date/Time ESOPHAGOGASTRODUODENOSCOPY Cirrhosis Alc oholic (HCC) 03/20/2022 8:45 AM CASTING TRUCKER Hypertension Portal (HCC) documented as of this encounter Visit Diagnoses Not on filedocumented in this encounter Care Teams Gate Clerk Relationship Specialty Start Date End Date Elsewhere, Pcp PCP - General Family Medicine 03/10/20 11/30/21 Ervin Schroeder MD Referring Provider Family Medicine 03/24/[address] [place] [phone] documented as of this encounter
--- OUTSIDE RECORDS SUMMARY | 2022-02-14 22:11 | XMS_ITS | Encounter Summary ---
:1990 Author Organization [facility] Address [address] [place] [address] Care Team Providers Name Role Phone Elsewhere, Pcp Primary Care Provider Unavailable Reason for Referral Outpatient (Routine) - Authorized Specialty Diagnoses / Procedures Referred By Contact Refer red To Contact Emergency Medicine Diagnoses Edema Peripheral Elevated Bilirubin Margy Paul M.D. [address] [phone] Referral ID Status Reason Start Date Expiration Date Visits V isits Requested Authorized [id number] Authorized 08/03/2021 08/03/2022 1 1 Outpatient (Routine) - Authorized Specialty Diagnoses / Procedures Referred By Contact Refer red To Contact Emergency Medicine Diagnoses Edema Peripheral Margy Paul M.D. [address] [phone] Referral ID Status Reason Start Date Expiration Date Visits V isits Requested Authorized [id number] Authorized 08/03/2021 08/03/2022 1 1 Reason for Visit Reason Comments Leg Swelling Pt states she has had bilate ral lower leg swelling for the past week. Encounter Details Date Type Department Care Team Description 08/02/2021 - Emergency [facility] Juliana [place] D.O. [address] [place] [phone] Edema Peripheral (Primary Dx); 08/03/2021 [facility] Margy Paul M.D. [address] [place] [phone] Hypokalemia; Emergency Department Elevated Bilirubin; [address] [place] [phone] Social History Tobacco Use Types Packs/Day Years [...] you attend anabaptism or Patient refused 2021 hindu services? 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 Pt stated to board writer that her mother was on her way from [facility] pick her up at that time. Pt was still in lobby at 0900. Mother was not enroute-pt had never actually talked to her about a ride (had left a text message). Pt approached by board writer and asked what her plan was as hospital rules prohibit her from sitting in lobby until 1pm as that is when pt wants to go visit her friend on the unit. Pt then stated she didn't think she should have been discharged. Pt then informed by board writer that shehas the ability to check back in and be evaluated by another physician. Pt declined and stated she did not want more blood work or another IV. I just want to visit my friend. Pt again talked to someone on the phone and said Will you come and get me?. She then said her mother was on her way. Escorted to [facility] by security. Shyla Ojeda R.N. 08/03/21 [...] of her legs. No beds here in [place]. Have had a conversation regarding admission vs [...] and Family: Twice a week ??? Attends Pentecostal Services: Never ??? Active Member of Clubs [...] this time. Unfortunately no beds here in [place] and patient prefers to wait until bed availability could potentially open up tomorrow rather than attempt transfer to [facility]. Transfer of patient's care pending admission [...] Ketone Negative Bilirubin Negative pH 7.0 Specific [place] 1.005 Urobilinogen 0.2 White Blood Cells None [...] care pending admission with bed availability to [facility] ED attending Dr. Paul. DIAGNOSIS: Final diagnoses: [R60.9] Edema Peripheral [E87.6] Hypokalemia [E80.7] Elevated Bilirubin [D64.9] Anemia Juliana [place] D.O. 08/06/21 1123 documented in this encounter Plan of Treatment Upcoming Encounters Date Type Specialty Care Team Description Telemedicine Transplant 2 Appointment Radiology Matthew Jerome 2 YTyrell M.D. [address] [place] [phone] Appointment Gastroenterology and Adrianne, 2 Hepatology Yue Burciaga M.D. [address] [place] [phone] Virtual Visit Transplant Matthew Jerome 2 YTyrell M.D. [address] [place] [phone] Office Visit Gastroenterology and [facility] 2 Hepatology Tyrell Rodriguez M.D. [address] [place] [phone] Appointment Radiology Luischantell Matthew 2 Tyrell Rodriguez M.D. [address] [place] [phone] [facility] Gastroenterology and [facility] Cirrhos is Alcoholic (HCC) 2 Encounter Hepatology Tyrell Rodriguez M.D. [address] [place] [phone] Anesthesia Event Gastroenterology and Rl, 2 Hepatology Ervin Burgos M.D. [address] [place] [phone] Surgery Gastroenterology and [facility] ESOPHAG OGASTRODUODENOSCOPY 2 Hepatology Tyrell Rodriguez M.D. 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- [address] [place] [id number] [place] [address] [place] [address] System in [address] (ABNORMAL) CBC without Differential (08/03/2021 4:27 AM CDT) [facility] gist Method Time Signature Hemoglobin 7.5 [...] e Number [facility]- [facility] [place] [address] [place] [address] System in [place] [address] [facility] Urinalysis with Microscopic: Urine, Midstream (08/03/2021 12:07 AM CDT) Analysis Performed At [facility] Time Signature Source Urine, Urine, 08/03/2021 MKTO [...] 8.0 08/03/2021 12:13 AM CDT MK[place] Specific [place] 1.005 1.001 - 1.035 08/03/2021 12:13 AM [...] D.O. LAB URINE ORDERABLES Performing Organization Address [facility] Phon e Number [address] [address] [place] [address] [address] (ABNORMAL) NT-Pro B-Type Natriuretic Peptide (BNP) [...] supplements. ??If the result does not [facility] clinical observations, repeat testing after patient refrains fr om the use of supplements for at least 12 hours. Specimen Anatomical Collection Method Collection Time Receive d Time (Source) Location / / Volume Laterality Blood (Blood, 08/02/2021 10:44 08/02/2021 Venous) PM CDT 10:50 PM CDT Juliana [place] D.O. LAB BLOOD ADD-ON Performing Organization Address [facility] Phon e Number [address] [address] [place] [address] System in [address] (ABNORMAL) Prothrombin Time (PT) (08/02/2021 10:44 PM CDT) [facility] Method Time Signature Prothrombin 29.9 (H) [...] e Number [facility]- [address] [place] [address] [place] [address] System in [address] Lipase (08/02/2021 10:44 PM CDT) athologist Signature Lipase, P 14 13 - 60 U/L 08/02/2021 MKTO 11:31 PM CDT Specimen Anatomical Collection Method Collection Time Receive d Time (Source) Location / / Volume Laterality Blood (Blood, 08/02/2021 10:44 08/02/2021 Venous) PM CDT 10:50 PM CDT Juliana [place] D.O. LAB BLOOD ADD-ON Performing Organization Address City/State/ZIP Code Phon e Number [address] [address] [place] [address] System in [address] (ABNORMAL) Hepatic Function Panel (08/02/2021 10:44 PM CDT) [facility] Method Time Signature Bilirubin, Total, P 10.6 [...] D.O. LAB BLOOD ADD-ON Performing Organization Address City/[facility] Phon e Number [address] [address] [place] [address] [address] (ABNORMAL) Ammonia (08/02/2021 10:44 PM CDT) P athologist Signature Ammonia, P 84 (H) <=51 08/02/2021 MKTO mcmol/L 11:18 PM CDT Specimen Anatomical Collection Method Collection Time Receive d Time (Source) Location / / Volume Laterality Blood (Blood, 08/02/2021 10:44 08/02/2021 Venous) PM CDT 10:50 PM CDT Juliana [place] D.O. LAB BLOOD NON ADD-ON Performing Organization Address City/[facility] Phon e Number [address] [address] [place] [address] System in [address] (ABNORMAL) Basic Metabolic Panel (08/02/2021 10:44 [...] CDT eGFR-Black/Afri >90 >=60 08/02/2021 MKTO can Egyptian mL/min/BSA 11:31 PM CDT Comment: ----ADDITIONAL INFORMATION---- [...] e Number [facility]- [facility] [place] [address] [place] [address] [address] hCG (Human Chorionic Gonadotropin), Quantitative, (08/02/2021 10:44 PM CDT) P athologist Signature HCG, <0.5 <5 IU/L 08/02/2021 [facility] Quantitative, 11:58 PM CDT , P Comment: Biotin has been identified by the chantelle lockett as a potential interfering substance. ??Higher concentr ations of biotin may be found in multivitamins, hair/nail supple ments, and workout supplements. ??If the result does not [facility] clinical observations, repeat testing after patient [...] e Number [facility]- [address] [place], [place] [phone] [place] [address] System [address] (ABNORMAL) CBC with Differential, Blood (08/02/2021 10:44 PM CDT) [facility] gist Method Time Signature Hemoglobin 7.8 (L) [...] e Number [facility]- [facility] [place] [address] [place] [address] System in [place] [address] [facility] ECG 12 Lead (08/02/2021 10:31 PM CDT) P athologist Signature Ventricular Rate 86 BPM MUSE ECG/Min GA Interval 166 ms MUSE QRSD Interval 92 ms MUSE QT Interval 404 ms MUSE QTC Interval 484 ms MUSE P [place] 61 degrees MUSE R [place] 56 degrees MUSE T Wave [place] 32 degrees MUSE Specimen Anatomical Collection Method [...] injection documented in this encounter Care Teams Compliance Examiner Relationship Specialty Start Date End Date Elsewhere, Pcp PCP - General Family Medicine 03/10/20 11/30/21 Ervin Schroeder MD Referring Provider Family Medicine 03/24/211979 [address] [place] [address] documented as of this encounter
--- OUTSIDE RECORDS SUMMARY | 2022-02-14 22:11 | XMS_ITS | Encounter Summary ---
:1990 Author Organization [facility] Address [address] [place] [address] Care Team Providers Name Role Phone Elsewhere, Pcp Primary Care Provider Unavailable Reason for Visit Reason Comments Vomiting Pt reports hx of liver cirrh osis, states discussed symptoms of vomiting, inability to tolerate home m edications with specialty team and referred to ED for further evaluation. Encounter Details Date Type Department Care Team Description [facility] [address] [place] [phone] Abdominal Pain (Primary Dx); 07/26/2021 [facility] Les Jj D.O. [address] [place] [phone] Nausea And Vomiting Emergency Department [facility] [place] [phone] Social History Tobacco Use Types [...] you attend hindu or Patient refused 2021 synagogue services? Do you belong to any clubs or No 02/10/2022 organizations such as hindu groups, unions, [employer] or athletic groups, or school groups? How [...] the highest technical, or vocational p [facility] degree you have received? 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 Godwin. Disposition pending transfer to [place] for abdominal pain, generalized weakness, nausea/vomiting,underlying liver [...] and Family: Twice a week ??? Attends [employer] Services: Never ??? Active Member of Clubs [...] [R10.9] Abdominal Pain [R11.2] Nausea And Vomiting Anthoyn Godwin M.D. 07/26/21155 documented in this encounter Plan of Treatment Upcoming Encounters Date Type Specialty Care Team Description Telemedicine Transplant 2 Appointment Radiology Matthew Jerome 2 YTyrell M.D. [address] [place] [phone] Appointment Gastroenterology and Doll, 2 Hepatology Yue Burciaga M.D. [address] [place] [phone] Virtual Visit Transplant Matthew Jerome 2 YTyrell M.D. [address] [place] [phone] Office Visit Gastroenterology and [facility] 2 Hepatology Tyrell Rodriguez, Lilian [address] [place] [phone] Appointment [facility] Matthew 2 YTyrell, Lilian [address] [place] [phone] Hospital Gastroenterology and [facility] Cirrhos is Alcoholic (HCC) 2 Encounter Hepatology Tyrell Rodriguez, Lilian [address] [place] [phone] Anesthesia Event Gastroenterology and Rl, 2 Hepatology Ervin Burgos M.D. [address] [place] [phone] Surgery Gastroenterology and [facility] ESOPHAG OGASTRODUODENOSCOPY 2 Hepatology Tyrell Rodriguez M.D. 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 Method Time Signature SARS CoV-2, Undetected Undetected 07/25/2021 MKTO PCR, Rapid, V 10:32 PM CDT Comment: ----ADDITIONAL INFORMATION---- This RT-PCR test was performed using the Daniel SARS-CoV-2 and Influenza A/B Reagent assay from [employer], which has received Emergency Use Authori zation(EUA) by the U.S. Food and Drug Administration . Fact sheets for this Emergency Use Autho rization (EUA) assay can be found at the following link s: For Healthcare Providers: https://www.fda.gov/media/778252/downloa d For Patients: https://www.fda.gov/media/385958/downloa d SARS Coronavirus 2, Source, Swab, Nasopharynx 07/02 10:06 PM CDT MKTO Rapid Specimen Anatomical Collection Method Collection Time Receive d Time (Source) Location / / Volume Laterality Varies 07/25/2021 9:50 PM CDT 10:06 PM CDT Anthony Godwin M.D. LAB MICROBIOLOGY - GENERAL O RDERABLES Performing Organization Address City/State/ZIP Code Phon e Number [facility]- [address] [place] [phone] [place] [address] System in [place] [address] [place] [address] SARS Coronavirus 2, PCR, V Asymptomatic (07/25/2021 9:50 PM CDT) athologist Signature SARS-Coronavir CANCELED 07/25/2021 MKTO us-2, PCR 10:06 PM CDT Comment: ----ADDITIONAL INFORMATION---- This RT-PCR test using the Xpert Xpress SARS-CoV-2/Flu/RSV assay ([employer] performed on the [employer] rt DX systems has received Emergency Use Authorization (EU A) by the U.S. Food and Drug Administration. Performanc e characteristics were verified by [facility] inic in a manner consistent with CLIA requirements . Fact sheets for this Emergency Use Autho rization (EUA) assay can be found at the following link s: For Healthcare Providers: https://www.fda.gov/media/461559/downloa d For Patients: https://www.fda.gov/media/535268/downloa d Result canceled by the ancillary. Specimen Source CANCELED 07/25/2021 10:06 PM CDT MKTO Comment: REVISED RESULTS Specimen Anatomical Collection Method Collection Time Receive d Time (Source) Location / / Volume Laterality Varies 07/25/2021 9:50 PM 2 (Nasopharynx) CDT 10:06 PM CDT Narrative [facility] - 07/25/2021 10:06 PM CDT SARS Coronavirus 2, PCR, V was cancelled on 07/25/2021 at 22:06; Duplicate test request. Anthony Godwin M.D. LAB MICROBIOLOGY - GENERAL O RDERABLES Performing Organization Address City/[facility]/ZIP Code Phon e Number [facility]- [address] [place] [phone] [place] [address] (ABNORMAL) Ammonia (07/25/2021 7:05 PM CDT) [...] Code Phon e Number [facility]- [address] [place] [phone] [place] [address] Lipase (07/25/2021 7:05 PM CDT) P athologist Signature Lipase, P 13 13 - 60 U/L 07/25/2021 7:30 MKTO PM CDT Specimen Anatomical Collection Method Collection Time Receive d Time (Source) Location / / Volume Laterality Blood (Blood, 07/25/2021 7:05 PM 07/26/19 7:08 Venous) CDT PM CDT Anthony Godwin M.D. LAB BLOOD ADD-ON Performing Organization Address City/[facility] Phon e Number [facility]- [address] [place] [phone] [place] [address] (ABNORMAL) Comprehensive Metabolic Panel (07/25/2021 7:05 [...] CDT eGFR-Black/Afri >90 >=60 07/25/2021 MKTO can Martiniquais mL/min/BSA 7:30 PM CDT Comment: ----ADDITIONAL INFORMATION---- [...] Code Phon e Number [facility]- [address] [place] [phone] [place] [address] (ABNORMAL) CBC with Differential, Blood (07/25/2021 7:05 PM CDT) [facility] gist Method Time Signature Hemoglobin 7.4 [...] Code Phon e Number [facility]- [address] [place] [phone] [place] [address] System in [place] [address] [place] [address] documented in this encounter Visit Diagnoses Diagnosis [...] 400 Units, oral, Daily, First dose on 07/26/22 at 0900, cholecalciferol 400 units oral daily [...] 10 mg, intravenous, Once, On Wed07/25/21 at 1918, For 1 dose morphine injection 2 mg [...] documented as of this encounter Care Teams Gun Mechanic Relationship Specialty Start Date End Date Elsewhere, Pcp PCP - General Family Medicine 03/10/20 11/30/21 Ervin Schroeder MD Referring Provider Family Medicine 03/24/[address] [place] [phone] documented as of this encounter
--- OUTSIDE RECORDS SUMMARY | 2022-02-14 22:11 | XMS_ITS | Encounter Summary ---
:1990 Author Organization [facility] Address [address] [place] [address] Care Team Providers Name Role Phone Elsewhere, Pcp Primary Care Provider Unavailable Reason for Visit Reason Comments Sleepiness Encounter Details Date Type Department Care Team Description 07/19/2021 Documentation Division of Gastroenterology Wali Baldwin in [facility] pedro Mendez M.D. [address] [facility] [address] [place] [phone] [place], [place] [phone] (Wo rk) Social History Tobacco Use Types [...] you attend mandaeism or Patient refused 2021 adventism services? 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 - 07/19/2021 2:04 AM CDT On-call Fellow Note: Patient is not a patient of [facility] but was connected to the [...] Transplant 2 Appointment Radiology LuisNew abdular 2 Joshua RodriguezBSumaBGraeme, Lilian [address] [place] [phone] Appointment Gastroenterology demian Silver 2 Hepatology Yue Burciaga M.D. [address] [place] [phone] Virtual Visit Transplant LuisNew abdular 2 Joshua RodriguezB.B.Kath, Lilian [address] [place] [phone] Office Visit Gastroenterology and LuisNew abdular 2 Hepatology Joshua RodriguezB.B.SLilian Moise [address] [place] [phone] Appointment Radiology LuisNew abdular 2 YJoshuaB.B.SSuma, Lilian [address] [place] [phone] Hospital Gastroenterology and LuisMatthew abdul Cirrhos is Alcoholic (HCC) 2 Encounter Hepatology Jennifer M.B.B.SSuma, Lilian [address] [place] [phone] Anesthesia Event Gastroenterology and Rl, 2 Hepatology Ervin Burgos M.D. [address] [place] [phone] Surgery Gastroenterology and Mousa, Matthew ESOPHAG OGASTRODUODENOSCOPY 2 Hepatology Tyrell Rodriguez M.D. 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
--- OUTSIDE RECORDS SUMMARY | 2022-02-14 22:11 | XMS_ITS | Encounter Summary ---
:1990 Author Organization [facility] Address [address] [place] [phone] Care Team Providers Name Role Phone Elsewhere, Pcp Primary Care Provider Unavailable Reason for Visit Auth/Cert Specialty Diagnoses / Procedures Referred By Contact Refer red To Contact Diagnoses Vomiting Abdominal pain Procedures n/a Referral ID Status Reason Start Date Expiration Date Visits Requ ested Visits Authorized [id number] 1 1 Encounter Details Date Type Department Care Team Description 07/26/2021 - Hospital Encounter [facility] Radha Bennett M. D. [address] [place] [phone] Vomiting (Primary 07/27/2021 [facility] Serene Montgomery M.D. [address] [place] [address] [phone] Dx) [facility], Fifth Floor [address] [place] [address] [phone] Social History Tobacco Use Types Packs/Day Years [...] you attend worship or Patient refused 2021 zoroastrian services? 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 Primary Team: [facility] Medicine 1 ([facility]) Primary Care Providers: Elsewhere, Pcp [...] 01 [facility] Laboratory Medicine 08/29/2021 4:00 PM [facility] COVID PRE SCREEN [facility] Family Medicine For appointment details [...] more sleepy than usual. She presented to [facility] emergency department on 07/25 with nausea, vomiting, [...] local hospital beds, she was transferred to [facility] for further investigation and management. On presentation at [facility], she was in stable condition with [...] not effective for her N/V. Nicole Dalal PharmSumaDSuma, R.Ph. documented in this encounter H&P Notes Virginie Batista M.D. - 07/26/2021 11:07 AM CDT T Medicine 1 ([facility]) Admission Note SUBJECTIVE CHIEF COMPLAINT [...] admitted locally and she was transferred to [place]. Of note, on 07/06/21, she presented to [...] border. TTE with bubble study showed a iuwbo-sn-mmca shunt with a severely enlarged left atrium. Cardiology was consulted and recommended follow up with a commercial real estate sales manager in the outpatient setting. Ms. Carias tells [...] with her boyfriend in an apartment in [place], [place]. She is not currently working but usedto work at the [employer] in [place]. Her last drink of alcohol was in [...] intact. No evidence of disorganizedthinking. 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 She has insight into her history of [...] that she followed up with them at [place]. - Plan: ?? Recommend Cardiology outpatient follow [...] questions. Thank you, ZACH Trevizo Clinical Documentation Ent Surgeon Query created by: ZACH Trevizo 07/28/2021 11:55 [...] more sleepy than usual. She presented to [facility] emergency department on 07/25 with nausea, vomiting, [...] local hospital beds, she was transferred to [facility] for further investigation and management. On presentation at [facility], she was in stable condition with [...] Radiology Matthew Jerome 2, M.B.B.S., Lilian [address] [place] [phone] Appointment Gastroenterdina and Adrianne, 2 Hepatology Yue Burciaga M.D. [address] [place] [phone] Virtual Visit Transplant Matthew Jerome 2 YTyerll M.D. [address] [place] [phone] Office Visit Gastroenterology and Matthew Jerome 2 Hepatology Tyrell Rodriguez M.D. [address] [place] [phone] Appointment Radiology Matthew Jerome 2 YTyrell M.D. [address] [place] [phone] Hospital Gastroenterology and Mdchantell Matthew Cirrhos is Alcoholic (HCC) 2 Encounter Hepatology Tyrell Rodriguez M.D. [address] [place] [phone] Anesthesia Event Gastroenterology and Rl, 2 Hepatology Ervin Burgos M.D. [address] [place] [phone] Surgery Gastroenterology and Matthew Jerome ESOPHAG OGASTRODUODENOSCOPY 2 Hepatology Tyrell Rodriguez M.D. 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 LAB BLOOD NON ADD-ON Performing Organization Address City/State/ZIP Code Phon e Number [facility] - [address] [place], [place] [address] [facility] [place] [address] [facility] [address] Direct Antiglobulin Test (Poly) (07/27/2021 10:15 AM CDT) [facility] Method Time Signature Direct Negative Negative 07/27/2021 STRM Antiglobulin 10:50 AM CDT Test, Polyspecific Specimen Anatomical Collection Method Collection Time Receive d Time (Source) Location / / Volume Laterality Blood (Blood, 07/27/2021 10:15 07/27/2021 Venous) AM CDT 10:27 AM CDT Conor Santillan, M.S. LAB BLOOD BANK TEST O RDERABLES Performing Organization Address [facility] Phon e Number [facility] - 200 [place], [place] [address] [facility] [place] [address] [facility] [address] [facility] Peripheral Smear Interpretation (07/27/2021 9:39 AM CDT) Component Value Ref Test Analysis Performed Pathologis t Range Method Time At [facility] 07/28/2021 [facility] 10:50 AM CDT Report Marcela Rogers M.D. 07/28/2021 [facility] electronically 10:50 AM signed by CDT I verify that I have examined all relevant slides/materials for the specimen(s) and rendered or confirmed the diagnosis. Interpretation Marked acanthocytosis present, compatible with clini ada 07/28/2021 [facility] history of alcohol-associated cirrhosis. 10:50 AM CDT Specimen Anatomical Collection Method Collection Time Receive d Time (Source) Location / / Volume Laterality Blood 07/27/2021 9:39 AM 9:39 CDT AM CDT Conor Santillan, M.S. LAB PATHOLOGY/CYTOLOG Y ORDERABLES Performing Organization Address City/[facility] Phon e Number [facility] - 200 [place], [place] [address] [place] [address] (ABNORMAL) Reticulocytes (07/27/2021 9:39 AM CDT) Patholo gist Method Time [facility] Reticulocytes, B 7.52 (H) 0.60 - 07/27/2021 [facility] 2.71 % 11:12 AM CDT Absolute 155.7 (H) 30.4 - 07/27/2021 [facility] Reticulocyte 110.9 11:12 AM CDT x10(9)/L Specimen Anatomical Collection Method Collection Time Receive d Time (Source) Location / / Volume Laterality Blood (Blood, 07/27/2021 9:39 AM 07/28/19 9:39 Venous) CDT AM CDT Conor Santillan, M.S. LAB BLOOD ADD-ON Performing Organization Address [facility] Phon e Number [facility] - 200 [place], [place] [address] [place] [address] (ABNORMAL) Morphology Evaluation (Special Smear) (07/27/2021 9:39 AM CDT) Analysis Performed At Patho logist Time Signature Neutrophilic Segs 78 (H) 50 - 75 % 07/28/2021 DTL and Bands 11:07 AM CDT Lymphocytes 16 (L) 18 - 42 % 07/28/2021 [facility] 11:07 AM CDT Monocytes 6 2 - 11 % 07/28/2021 [facility] 11:07 AM CDT Specimen Anatomical Collection Method Collection Time Receive d Time (Source) Location / / Volume Laterality Blood (Blood, 07/27/2021 9:39 AM 07/28/19 9:39 Venous) CDT AM CDT Conor Santillan, M.S. LAB BLOOD ADD-ON Performing Organization Address [facility] Phon e Number [facility] - 200 [place], [place] [address] [place], [place] [phone] [place] [address] (ABNORMAL) CBC with Differential, Blood (07/27/2021 5:10 [...] Address City/State/ZIP Code Phon e Number [facility] - [address] [place], [place] [address] [facility] [place] [address] [facility] [address] (ABNORMAL) Prothrombin Time (PT) (07/27/2021 5:09 AM CDT) [facility] Method Time Signature Prothrombin 31.4 (H) [...] BLOOD ADD-ON Performing Organization Address City/[facility] Phon e Number [facility] - [address] (ABNORMAL) Hepatic Function Panel (07/27/2021 5:09 AM CDT) [facility] Method Time Signature Bilirubin, Total, [...] M.D. LAB BLOOD ADD-ON Performing Organization Address [facility] Phon e Number [facility] - [id number] [place], [place] [address] [address] (ABNORMAL) Basic Metabolic Panel [...] 07/27/2021 DTL Black/ mL/min/BSA 5:52 AM CDT Bermudian Comment: ----ADDITIONAL INFORMATION---- Estimated GFR calculated using [...] Address City/State/ZIP Code Phon e Number [facility] - [address] [place], [place] [address] [place] [address] [facility] [address] [facility] (ABNORMAL) Haptoglobin (07/27/2021 5:04 AM CDT) athologist Signature Haptoglobin, S <14 (L) 30 - 200 07/29/2021 [facility] mg/dL 10:32 AM CDT Specimen Anatomical Collection Method Collection Time Receive d Time (Source) Location / / Volume Laterality Blood (Blood, 07/27/2021 5:04 AM 07/30/19 9:06 Venous) CDT AM CDT Kwabena Zelaya M.D. LAB BLOOD ADD-ON Performing Organization Address City/[facility]/ZIP Code Phon e Number [facility] [address] [place], [place] [address] [facility] [place] [address] Laboratory Medicine and Pathology [address] [...] BLOOD ADD-ON Performing Organization Address City/[facility]/ZIP Code Phon e Number [facility] [address] [place], [place] [address] [place] [address] [facility] [address] [facility] Transfuse Red Blood Cells : (07/26/2021 7:19 PM CDT) Conor Santana., M.S. BLOOD TRANSFUSION ORD ERABLES Transfuse Red [...] PROCEDURES Dipstick, Urine (07/26/2021 12:11 PM CDT) [facility] gist Method Time Signature Hemoglobin, Negative Negative [...] M.D. LAB URINE ORDERABLES Performing Organization Address City/[facility] Phon e Number [facility] - [address] Osmolality, Urine (07/26/2021 12:11 PM CDT) athologist Signature Osmolality, U 613 150 - 1150 07/26/2021 DTL mOsm/kg 2:34 PM CDT Specimen Anatomical Collection Method Collection Time Receive d Time (Source) Location / / Volume Laterality Urine 07/26/2021 12:11 07/26/2021 PM CDT 12:58 PM CDT Virginie Batista M.D. LAB URINE ORDERABLES Performing Organization Address City/State/[facility] Phon e Number [facility] - [address] pH, Random, Urine (07/26/2021 12:11 PM CDT) athologist Signature pH, Random, U 6.7 4.5 - 8.0 07/26/2021 DTL 2:34 PM CDT Specimen Anatomical Collection Method Collection Time Receive d Time (Source) Location / / Volume Laterality Urine 07/26/2021 12:11 07/26/2021 PM CDT 12:58 PM CDT Virginie Batista M.D. LAB URINE ORDERABLES Performing Organization Address City[facility] Phon e Number [facility] - 200 [place], [place] [address] [place] [address] [place] [address] [address] (ABNORMAL) Microscopic Manual (07/26/2021 12:11 PM [...] M.D. LAB URINE ORDERABLES Performing Organization Address City[facility] Phon e Number [facility] - [address] [place] [address] [place] [address] Laboratories-[address] Urinalysis with Microscopic: Urine, Midstream (07/26/2021 [...] M.D. LAB URINE ORDERABLES Performing Organization Address [facility] Phon e Number [facility] - 200 [place], [place] [address] [facility] [place] [address] [facility] [address] [facility] (ABNORMAL) Prothrombin Time (PT) (07/26/2021 10:58 AM [...] BLOOD ADD-ON Performing Organization Address City[facility] Phon e Number [facility] - 200 [place], [place] [address] [facility] [place] [address] [facility] [address] [facility] CRP (C-Reactive Protein) (07/26/2021 10:58 AM CDT) P athologist Signature C-Reactive 4.6 <=8.0 mg/L 07/26/2021 DTL Protein (CRP), 11:55 AM CDT S Specimen Anatomical Collection Method Collection Time Receive d Time (Source) Location / / Volume Laterality Blood (Blood, 07/26/2021 10:58 07/26/2021 Venous) AM CDT 11:38 AM CDT Virginie Batista M.D. LAB BLOOD ADD-ON Performing Organization Address City/State/ZIP Code Phon e Number [facility] - [address] [place], [place] [address] [facility] [place] [place] [address] [facility] [address] [facility] (ABNORMAL) Basic Metabolic Panel (07/26/2021 10:58 AM [...] 07/26/2021 DTL Black/ mL/min/BSA 11:55 AM CDT Bermudian Comment: ----ADDITIONAL INFORMATION---- Estimated GFR calculated using [...] Address City/State/ZIP Code Phon e Number [facility] - 200 [place], [place] [address] [facility] [place] [address] [facility] [address] [facility] (ABNORMAL) CBC with Differential, Blood (07/26/2021 10:58 AM CDT) [facility] Method Time Signature Hemoglobin 6.8 (L) [...] BLOOD ADD-ON Performing Organization Address City/[facility] Code Phon e Number [facility] - 200 [place], [place] [address] [facility] [place] [place] [address] [address] Type and Screen (with reflex Antibody ID) (07/26/2021 10:57 AM CDT) [facility] [place] Method Time Signature ABORh B Pos Not [...] BANK TEST ORDERABL ES Performing Organization Address City[facility] Phon e Number [facility] - [address] [place] [address] [address] (ABNORMAL) Hepatic Function Panel (07/26/2021 10:57 AM CDT) [facility] [place] Method Time Signature Bilirubin, Total, S 7.5 [...] BLOOD ADD-ON Performing Organization Address City/[facility]/ZIP [facility] Phon e Number [facility] - [address] Magnesium (07/26/2021 10:57 AM CDT) P athologist Signature Magnesium, S 1.8 1.7 - 2.3 07/26/2021 DTL mg/dL 3:17 PM CDT Specimen Anatomical Collection Method Collection Time Receive d Time (Source) Location / / Volume Laterality Blood (Blood, 07/26/2021 10:57 07/26/2021 2:55 Venous) AM CDT PM CDT Virginie Batista M.D. LAB BLOOD ADD-ON Performing Organization Address [facility] Code Phon e Number [facility] - 200 [place] [address] [address] ECG 12 Lead (07/26/2021 9:10 AM CDT) P athologist Signature Ventricular Rate 77 BPM MUSE ECG/Min ME Interval 160 ms MUSE QRSD Interval 92 ms MUSE QT Interval 418 ms MUSE QTC Interval 473 ms MUSE P [place] -12 degrees MUSE R [place] 53 degrees MUSE T Wave [place] -6 degrees MUSE Specimen Anatomical Collection Method [...] encounter Visit Diagnoses Diagnosis Vomiting - Primary Vomiting Cirrhosis Alcoholic (HCC) Cirrhosis Alcoholic (HCC) [...] 10, headaches, Starting on 07/26/21 at 1038 isizklxwtobjp-dncipcxvjb-hizbrysu in Lipoderm Given 07/28/19 10:15 AM CDT [...] sleep, Starting on Sat 2 at 1354 vyrosltxgyij-ftwg-GM-Ca-minerals 400 mcg Given 07/27/2021 8:00 A M [...] RSumaNSuma) 0800 (Given - Provider: Celena Richardson RGabby) [...] Units 1409 (Given - Provider: Humera Murray RSumaN.)2006 (Given - Provider: Ana Paula Noriega R.N.) [...] Provider: Celena Richardson R.N.)1406 (Given - Provider: Ceelna Richardson R.N.) 30 g, oral, 3 times daily, First dose on 07/26/21 at 1400 magnesium oxide tablet 400 mg (MAG-OX) 1 614 (Given - Provider: Humera Murray R.N.) 0800 (Given - Provider: Celena damon R.N.) 400 mg, oral, 2 times daily before break fast and dinner, First dose on 07/26/21 at 1600 sycsoyizhfwg-wqmp-KV-Ca-minerals 400 mcg (folic acid) tablet 1 tablet [...] (TYLENOL) 16 14 (Given - Provider: Humera Murray, R.NSuma) 325 mg, oral, Every 6 hours PRN, mild pa in or score 1-3 of 10, moderate pain or score 4-6 of 10, severe pain or score 7-10 of 10, headaches, Starting on 07/26/21 at 1038 ygrsvcsksdsxj-jvjqfbawnj-ocilerhe in Lipoderm 2%-5%-5% cream 1 g 1220 [...] Noriega R.N.) 0813 (Given - Provider: Celena Richardson, R.N.)1444 (Given - Provider: Celena Richardson, R.N.) 5 mg, oral, Every 6 hours PRN, moderate pain or score 4-6 of 10, severe pain or score 7-10 of 10, Starting on 07/26/21 at 1036 documented in this encounter Care Teams Van Loader Relationship Specialty Start Date End Date Elsewhere, Pcp PCP - General Family Medicine 03/10/20 11/30/21 Ervin Schroeder MD Referring Provider Family Medicine 03/24/[address] [place] [phone] documented as of this encounter
--- OUTSIDE RECORDS SUMMARY | 2022-02-14 22:11 | XMS_ITS | Encounter Summary ---
:1990 Author Organization [facility] Address [address] [place] [address] Care Team Providers Name Role Phone Elsewhere, Pcp Primary Care Provider Unavailable Reason for Referral Outpatient (Routine) - Closed Specialty Diagnoses / Referred By Contact Referred To Procedures Contact Gastroenterology and Matthew Jerome, [facility] Region Hepatology Lilian Santillan [address] [place] [phone] Referral ID Status Reason Start Date Expiration Date Visits Requ ested Visits Authorized [id number] Closed 08/05/2021 08/05/2022 1 1 Occupational Therapy (Routine) - Closed Specialty Diagnoses / Procedures Referred By Contact Refer red To Contact Diagnoses Edema Leg Matthew Jerome M.B.B.S., [facility] Procedures OT Evaluate and treat M.Jeri [address] [place] [phone] Referral ID Status Reason Start Date Expiration Date Visits Requ ested Visits Authorized [id number] Closed 08/05/2021 08/05/2022 1 1 Reason for Visit Outpatient (Routine) - Closed Specialty Diagnoses / Referred By Contact Referred To Procedures Contact Gastroenterology and Kerry Naranjo, [facility] Hepatology IMPORT/EXPORT FREIGHT FORWARDER, LowellNDayne, M.S.N. [facility] [place] [phone] Referral ID Status Reason Start Date Expiration Date Visits Requ ested Visits Authorized [id number] Closed 07/21/2021 07/21/2022 1 1 Encounter Details Date Type Department Care Team Description 08/05/2021 Office Visit Department of Matthew Jerome Edema Leg (P rimary Dx); Gastroenterology in Joshua Santillan Cirrhosis Alcoholic (HCC) [place], [place] [address] [place] [phone] Social History Tobacco Use Types [...] you attend adventism or Patient refused 2021 zoroastrian services? 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 Worked at [employer]. For 13 years she was a vegetarian, [...] on her own after a trip to [place] last July 2020, but could not remember why she decided to. Prior to that she had 4 episodes of recurrent pancreatitis. She states that the 1st illness she had was after a trip to [place] when she had abdominal pain and she [...] the liver Transplant selection committee meeting in [facility]. She agreed to proceed. I explained that [...] contact the liver transplant coordinators to submit [id number], pending approval. Once approved, the transplant coordinators [...] her PCP #15 Newly diagnosed PFO with ifduj-ql-iigq atrial shunt: Echo done March 2020 # [...] OLAYINKA Trotter Gastroenterology, Hepatology and Transplant hepatology [facility] documented in this encounter Plan of Treatment Upcoming Encounters Date Type Specialty Care Team Description Telemedicine Transplant 2 Appointment Radiology Matthew Jerome 2, M.B.B.S., M.D. [address] [place] [phone] Appointment Gastroenterology demian Silver, 2 Hepatology Yue Burciaga M.D. [address] [place] [phone] Virtual Visit Transplant Matthew Jerome 2, M.B.B.S., M.D. [address] [place] [phone] Office Visit Gastroenterology and Matthew Jerome 2 Hepatology Tyrell Rodriguez M.D. [address] [place] [phone] Appointment Radiology Matthew Jerome 2 Tyrell Rodriguez M.D. [address] [place] [phone] Hospital Gastroenterology and Scchantell Matthew Cirrhos is Alcoholic (HCC) 2 Encounter Hepatology Tyrell Rodriguez M.D. [address] [place] [phone] Anesthesia Event Gastroenterology and Rl, 2 Hepatology Ervin Burgos M.D. [address] [place] [address] [phone] [facility] G[facility]OS[facility] 2 Hepatology Tyrell Rodriguez M.D. 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 Hypertension Portal (HCC) Scheduled Referrals Name [...] CDT eGFR-Black/Afri >90 >=60 08/11/2021 OW[place] can Maltese mL/min/BSA 1:53 PM CDT Comment: ----ADDITIONAL INFORMATION---- [...] Phon e Number [facility] [address] [place] [address] [place] [address] System in [place] [address] documented in this encounter Visit Diagnoses Diagnosis Edema Leg - Primary Cirrhosis Alcoholic (HCC) Cirrhosis Alcoholic (HCC) Cirrhosis Alcoholic (HCC) Hypertension Portal (HCC) documented in this encounter Care Teams Brewery Worker Relationship Specialty Start Date End Date Elsewhere, Pcp PCP - General Family Medicine 03/10/20 11/30/21 Ervin Schroeder MD Referring Provider Family Medicine 03/24/211979 [address] [place] [phone] documented as of this encounter
--- OUTSIDE RECORDS SUMMARY | 2022-02-14 22:11 | XMS_ITS | Encounter Summary ---
:1990 Author Organization [facility] Address [address] [place] [address] Care Team Providers Name Role Phone Elsewhere, Pcp Primary Care Provider Unavailable Reason for Visit Reason Comments Epistaxis (Nose Bleed) Encounter Details Date Type Department Care Team Description 07/25/2021 Nurse Triage Department of Joshua Resendiz (Nose Medicine, [facility], RSumaNSuma Bleed) [facility], in [place], [place] [address] [phone] Social History Tobacco Use Types Packs/Day Years [...] you attend confucianism or Patient refused 2021 denominational services? 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 Call your doctor (or SPOILAGE WORKER/PA) when the office opens and make an [...] [2] direct pressure applied correctly Protocols used: [id number] documented in this encounter Plan of Treatment Upcoming Encounters Date Type Specialty Care Team Description Telemedicine Transplant 2 Appointment Radiology Matthew Jerome 2 Tyrell Rodriguez M.D. [address] [place] [phone] Appointment Gastroenterology and Adrianne, 2 Hepatology Yue Burciaga M.D. [address] [place] [phone] Virtual Visit Transplant Matthew Jerome 2 Tyrell Rodriguez M.D. [address] [place] [phone] Office Visit Gastroenterology and Matthew Jerome 2 Hepatology Tyrell Rodriguez M.D. [address] [place] [phone] Appointment Radiology Matthew Jerome 2 YTyrell M.D. [address] [place] [phone] Hospital Gastroenterology and [facility] Cirrhos is Alcoholic (HCC) 2 Encounter Hepatology Tyrell Rodriguez M.D. [address] [place] [phone] Anesthesia Event Gastroenterology and Rl, 2 Hepatology Ervin Burgos M.D. [address] [place] [phone] Surgery Gastroenterology and [facility] ESOPHAG OGASTRODUODENOSCOPY 2 Hepatology Tyrell Rodriguez M.D. [address] [place] [phone] Scheduled Procedures Name Priority Associated Diagnoses Date/Time ESOPHAGOGASTRODUODENOSCOPY Cirrhosis Alc oholic (HCC) 03/20/2022 8:45 AM PUBLIC RELATIONS COORDINATOR Hypertension Portal (HCC) documented as of this encounter Visit Diagnoses Not on filedocumented in this encounter Care Teams Performance Tester Relationship Specialty Start Date End Date Elsewhere, Pcp PCP - General Family Medicine 03/10/20 11/30/21 Ervin Schroeder MD Referring Provider Family Medicine 03/24/[address] [place] [address] documented as of this encounter
--- OUTSIDE RECORDS SUMMARY | 2022-02-14 22:12 | XMS_ITS | Encounter Summary ---
:1990 Author Organization [facility] Address [address] [place] [address] Care Team Providers Name Role Phone Elsewhere, Pcp Primary Care Provider Unavailable Reason for Visit Reason Comments Altered Mental Status Urinary Tract Infection Encounter Details Date Type Department Care Team Description 07/19/2021 Nurse Triage Department of Catia Fagan [facility] R, R.N. 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 [address] [place] [phone] Appointment Gastroenterology demian Silver 2 Hepatology Yue Burciaga M.D. [address] [place] [phone] Virtual Visit Transplant LuisNew abdular 2 YTyrell M.D. [address] [place] [phone] Office Visit Gastroenterology and Matthew Jerome 2 Hepatology Tyrell Rodriguez M.D. [address] [place] [phone] Appointment Radiology LuisNew abdular 2 YTyrell M.D. [address] [place] [phone] Hospital Gastroenterology and Matthew Jerome Cirrhos is Alcoholic (HCC) 2 Encounter Hepatology Tyrell Rodriguez M.D. [address] [place] [phone] Anesthesia Event Gastroenterology and Rl, 2 Hepatology Ervin Burgos M.D. [address] [place] [phone] Surgery Gastroenterology and Luischantell Matthew ESOPHAG OGASTRODUODENOSCOPY 2 Hepatology Tyrell Rodriguez M.D. [address] [place] [phone] Scheduled Procedures Name Priority Associated Diagnoses Date/Time ESOPHAGOGASTRODUODENOSCOPY Cirrhosis Alc oholic (HCC) 03/20/2022 8:45 AM CUSTOMER CARE SPECIALIST Hypertension Portal (HCC) documented as of this encounter Visit Diagnoses Not on filedocumented in this encounter Care Teams Power System Dispatcher Relationship Specialty Start Date End Date Elsewhere, Pcp PCP - General Family Medicine 03/10/20 11/30/21 Ervin Schroeder MD Referring Provider Family Medicine 03/24/[address] [place] [address] documented as of this encounter
--- OUTSIDE RECORDS SUMMARY | 2022-02-14 22:12 | XMS_ITS | Encounter Summary ---
:1990 Author Organization [facility] Address [address] [place] [address] Care Team Providers Name Role Phone Elsewhere, Pcp Primary Care Provider Unavailable Reason for Visit Reason Comments Outpatient Infusion Fresh frozen plasma Encounter Details Date Type Department Care Team Description 07/02/2021 Infusion Department of Infusion Kerry Naranjo, Jt hrombocytopenia (HCC) (Primary Dx); Therapy in [place], REGIONAL OPERATIONS MANAGER, C.N.P., Cirrhos is Alcoholic (HCC); [place] M.S.N. Splenomegaly Acquired; [address] [facility] [address] [facility] Hypertension Portal (HCC) [place] [address] [place], [place] [phone] Social History Tobacco Use Types Packs/Day [...] you attend mu-ism or Patient refused 2021 muslim services? Do [...] Date Recorded Female 04/12/2021 7:39 PM MANUFACTURING MAINTENANCE MANAGER documented as of this encounter Last Filed Vital Signs Vital Sign Reading Time Taken Comments Blood Pressure 95/53 07/02/2021 12:56 PM MANUFACTURING MAINTENANCE MANAGER Pulse 91 07/02/2021 12:56 PM MANUFACTURING MAINTENANCE MANAGER Temperature 38.2 ??C (100.8 ??F) 07/02/2021 12:56 PM MANUFACTURING MAINTENANCE MANAGER Respiratory Rate 18 07/02/2021 12:56 PM MANUFACTURING MAINTENANCE MANAGER Oxygen Saturation 95% 07/02/2021 12:56 PM MANUFACTURING MAINTENANCE MANAGER Inhaled Oxygen Concentration - - Weight - - Height - - Body Mass Index - - documented in this encounter Plan of Treatment Upcoming Encounters Date Type Specialty Care Team Description Telemedicine Transplant 2 Appointment Radiology Matthew Jerome 2, M.B.B.S., Lilian [address] [place] [phone] Appointment Gastroenterology and Adrianne, 2 Hepatology Yue Burciaga M.D. [address] [place] [phone] Virtual Visit Transplant Matthew Jerome 2 YTyrell M.D. [address] [place] [phone] Office Visit Gastroenterology and Matthew Jerome 2 Hepatology Tyrell Rodriguez M.D. [address] [place] [phone] Appointment Radiology Matthew Jerome 2 YTyrell M.D. [address] [place] [phone] [facility] Cirrhos is Alcoholic (HCC) 2 Encounter Hepatology Tyrell Rodriguez M.D. [address] [place] [phone] Anesthesia Event Gastroenterology and Rl, 2 Hepatology Ervin Burgos M.D. [address] [place] [phone] Surgery Gastroenterology and Matthew Jerome ESOPHAG OGASTRODUODENOSCOPY 2 Hepatology Tyrell Rodriguez M.D. [address] [place] [phone] Pending Results Name Type Priority Associated Diagnoses Date/Ti tn Prepare Fresh Blood Bank Routine Thrombocytopenia (HCC) 07/02/2021 10:14 AM Frozen Plasma : 2 Cirrhosis Alcoholic (HC C) MANUFACTURING MAINTENANCE MANAGER Units Scheduled Procedures Name Priority Associated Diagnoses Date/Time ESOPHAGOGASTRODUODENOSCOPY Cirrhosis Alc oholic (HCC) 03/20/2022 8:45 AM MANUFACTURING MAINTENANCE MANAGER Hypertension Portal (HCC) documented as of this encounter Procedures Procedure Name Priority Date/Time Associated Diagnosis Comme nts PROTHROMBIN TIME Routine 07/02/2021 1:22 Cirrhosis Alcoholic R esults for this (PT), P PM MANUFACTURING MAINTENANCE MANAGER (HCC) procedure are in Thrombocytopenia (HCC) the results Splenomegaly Acq uired section. Hypertension Portal (HCC) TRANSFUSE FRESH Routine 07/02/2021 11:59 Thrombocytopeni a (HCC) FROZEN PLASMA AM MANUFACTURING MAINTENANCE MANAGER Cirrhosis Alcoholic (HCC) TRANSFUSE FRESH Routine 07/02/2021 10:57 Thrombocytopeni a (HCC) FROZEN PLASMA AM MANUFACTURING MAINTENANCE MANAGER Cirrhosis Alcoholic (HCC) PREPARE FRESH Routine 07/02/2021 10:14 Thrombocytopeni a (HCC) FROZEN PLASMA AM MANUFACTURING MAINTENANCE MANAGER Cirrhosis Alcoholic (HCC) documented in this encounter Results (ABNORMAL) Prothrombin Time (PT) (07/02/2021 1:22 PM MANUFACTURING MAINTENANCE MANAGER) [facility] Method Time Signature Prothrombin 24.6 (H) 9.4 - 12.5 07/02/2021 MKTO Time, P sec 1:39 PM MANUFACTURING MAINTENANCE MANAGER INR 2.2 0.9 - 1.1 07/02/2021 MKTO 1:39 PM MANUFACTURING MAINTENANCE MANAGER Comment: ----ADDITIONAL INFORMATION---- Standard intensity warfarin therapeutic range: 2.0 to 3.0 ?? High intensity warfarin therapeutic rang e: 2.5 to 3.5 Specimen Anatomical Collection Method Collection Time Receive d Time (Source) Location / / Volume Laterality Blood (Blood, 07/02/2021 1:22 PM 07/03/19 1:31 Venous) MANUFACTURING MAINTENANCE MANAGER PM MANUFACTURING MAINTENANCE MANAGER Katrin Newsome APRN.NLala., M.S.N. LAB BLOOD ADD-ON Performing Organization Address City/State/ZIP Code Phon e Number [facility]- [address] [place] [address] [place] [address] [address] Transfuse Fresh Frozen Plasma :INR >2: Invasive proc scheduled; 180 mL/hr (07/02/2021 12:57 PM MANUFACTURING MAINTENANCE MANAGER) Katrin Newsome APRN.N.P., M.S.N. BLOOD TRANSFUSION ORDERABLES Transfuse Fresh Frozen Plasma :INR >2: Invasive proc scheduled; 180 mL/hr, 2 Units (07/02/2021 12:57 PM MANUFACTURING MAINTENANCE MANAGER) Kerry Naranjo APRN, C.N.P., M.S.N. BLOOD TRANSFUSION ORDERABLES Transfuse Fresh Frozen Plasma :INR >2: Invasive proc scheduled; 180 mL/hr (07/02/2021 11:50 AM MANUFACTURING MAINTENANCE MANAGER) Kerry Naranjo APRN, C.N.P., M.S.N. BLOOD TRANSFUSION [...] tablet 650 mg Given 07/02/2021 1:04 PM MANUFACTURING MAINTENANCE MANAGER 650 mg (TYLENOL) 650 mg, oral, Once as needed, other, blood products administration, Starting on Wed07/02/21 at 1013, For 1 dose documented in this encounter Care Teams Medical Economics Consultant Relationship Specialty Start Date End Date Elsewhere, Pcp PCP - General Family Medicine 03/10/20 11/30/21 Ervin Schroeder MD Referring Provider Family Medicine 03/24/[address] [place], [place] [phone] documented as of this encounter
--- OUTSIDE RECORDS SUMMARY | 2022-02-14 22:12 | XMS_ITS | Encounter Summary ---
:1990 Author Organization [facility] Address [address] [place] [address] Care Team Providers Name Role Phone Elsewhere, Pcp Primary Care Provider Unavailable Encounter Details Date Type Department Care Team Description 07/18/2021 Nurse Triage Department of Samia Boyd ch, R.NSuma Medicine, [facility], in [address] [place], [place] [address] [address] [place] [address] [phone] Social History Tobacco Use Types Packs/Day Years [...] you attend rastafarian or Patient refused 2021 latter day services? 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 - 07/18/2021 10:48 PM CDT Chief Complaint / Reason for Call Patient is a 31 y.o. female calling regarding No chief complaint on file.. Assessment Concern: Patient seen in [place] ED via ambulance this evening, boyfriend found [...] does have appointment Friday 07/21 with her Retail Property Manager Kerry Naranjo CNP for followup. Patient generally frustrated she wasn't given much information or answers in ED visit. Present for: today Home cares tried: takes medications as prescribed Calling to request: advice The recommended disposition is Information or Advice Only Call. Patient agrees to call back if worsens, has followup appointment with perpetual inventory clerk Kerry Naranjo who has been following her, also with her PCP outside [place] on Wednesday, 07/23. Patient and significant other agree to call back if worsens or have additional questions. documented in this encounter Plan of Treatment Upcoming Encounters Date Type Specialty Care Team Description Telemedicine Transplant 2 Appointment Radiology LuisNew abdular 2 Tyrell Rodriguez M.D. [address] [place] [phone] Appointment Gastroenterology demian Silver, 2 Hepatology Yue Burciaga M.D. [address] [place] [phone] Virtual Visit Transplant LuisMatthew abdul 2 Tyrell Rodriguez M.D. [address] [place] [phone] Office Visit Gastroenterology and LuisMatthew abdul 2 Hepatology Tyrell Rodriguez M.D. [address] [place] [phone] Appointment Radiology LuisMatthew abdul 2 YTyrell M.D. [address] [place] [phone] Hospital Gastroenterology and Matthew Jerome Cirrhos is Alcoholic (HCC) 2 Encounter Hepatology Tyrell Rodriguez M.D. [address] [place] [phone] Anesthesia Event Gastroenterology and Rl, 2 Hepatology Ervin Burgos M.D. [address] [place] [phone] Surgery Gastroenterology and Mousa, Matthew ESOPHAG OGASTRODUODENOSCOPY 2 Hepatology YTyrell M.D. [address] [place] [phone] Scheduled Procedures Name Priority Associated Diagnoses Date/Time ESOPHAGOGASTRODUODENOSCOPY Cirrhosis Alc oholic (HCC) 03/20/2022 8:45 AM SALES SPECIAL AGENT Hypertension Portal (HCC) documented as of this encounter Visit Diagnoses Not on filedocumented in this encounter Care Teams Loading Unit Operator Relationship Specialty Start Date End Date Elsewhere, Pcp PCP - General Family Medicine 03/10/20 11/30/21 Ervin Schroeder MD Referring Provider Family Medicine 03/24/[address] [place] [address] documented as of this encounter
--- OUTSIDE RECORDS SUMMARY | 2022-02-14 22:12 | XMS_ITS | Encounter Summary ---
:1990 Author Organization [facility] Address [address] [place] [address] Care Team Providers Name Role Phone Elsewhere, Pcp Primary Care Provider Unavailable Encounter Details Date Type Department Care Team Description 07/06/2021 Documentation Department of Gastroenterology Myke Fish, in [place], [facility] joe LewisB.B.S [address] [facility] [address] [place] [phone] [place], [place] [phone] Social History Tobacco Use Types Packs/Day [...] you attend buddhist or Patient refused 2021 episcopalian services? 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 MBLER SURGICAL GARMENT documented in this encounter Plan of Treatment Upcoming Encounters Date Type Specialty Care Team Description Telemedicine Transplant 2 Appointment Radiology Matthew Jerome 2 YTyrell M.D. [address] [place] [phone] Appointment Gastroenterology demian Silver 2 Hepatology Yue Burciaga M.D. [address] [place] [phone] Virtual Visit Transplant Matthew Jerome 2 YTyrell M.D. [address] [place] [phone] Office Visit Gastroenterology and Matthew Jerome 2 Hepatology Tyrell Rodriguez M.D. [address] [place] [phone] Appointment Radiology LuisMatthew abdul 2 YTyrell M.D. [address] [place] [phone] [facility] Gastroenterology and Matthew Jerome Cirrhos is Alcoholic (HCC) 2 Encounter Hepatology Tyrell Rodriguez M.D. [address] [place] [phone] Anesthesia Event Gastroenterology and Rl, 2 Hepatology Ervin Burgos M.D. [address] [place] [phone] Surgery Gastroenterology and Matthew Jerome ESOPHAG OGASTRODUODENOSCOPY 2 Hepatology Tyrell Rodriguez, Lilian [address] [place] [phone] Scheduled Procedures Name Priority Associated Diagnoses Date/Time ESOPHAGOGASTRODUODENOSCOPY Cirrhosis Alc oholic (HCC) 03/20/2022 8:45 AM ASSEMBLER SURGICAL GARMENT Hypertension Portal (HCC) documented as of this encounter Visit Diagnoses Not on filedocumented in this encounter Care Teams Musical Instrument Mechanic Relationship Specialty Start Date End Date Elsewhere, Pcp PCP - General Family Medicine 03/10/20 11/30/21 Ervin Schroeder MD Referring Provider Family Medicine 03/24/[address] [place] [address] documented as of this encounter
--- OUTSIDE RECORDS SUMMARY | 2022-02-14 22:12 | XMS_ITS | Encounter Summary ---
:1990 Author Organization [facility] Address [address] [place] [address] Care Team Providers Name Role Phone Elsewhere, Pcp Primary Care Provider Unavailable Encounter Details Date Type Department Care Team Description 06/30/2021 Hospital Encounter Department of [facility] Alcoholic Laboratory Magaly Lucas ([facility]) Medicine, Specialty P.A.-C., M.S . [facility], in [place], [address] [place] [address] [place], [place] [phone] (Work) [phone] Social History Tobacco Use Types Packs/Day Years [...] you attend jain or Patient refused 2021 restoration services? Do [...] at Date Recorded Female 04/12/2021 7:39 PM DERMATOLOGY PHYSICIAN ASSISTANT documented as of this encounter Medications at [...] performingher upper GI endoscopy has been notified. ATOLOGY PHYSICIAN ASSISTANT documented in this encounter Plan of Treatment Upcoming Encounters Date Type Specialty Care Team Description Telemedicine Transplant 2 Appointment Radiology Matthew Jerome 2 Y M.B.B.SLilian Moise [address] [place] [phone] Appointment Gastroenterology and Adrianne, 2 Hepatology Yue Burciaga M.D. [address] [place] [phone] Virtual Visit Transplant Matthew Jerome 2 Joshua RodriguezB.B.SLilian Moise [address] [place] [phone] Office Visit Gastroenterology and Matthew Jerome 2 Hepatology Joshua RodriguezB.B.Lilian [place] [address] [place] [phone] Appointment Radiology Matthew Jerome 2 Y M.B.B.SLilian Moise [address] [place] [phone] Hospital Gastroenterology and Matthew Jerome Cirrhos is Alcoholic (HCC) 2 Encounter Hepatology Joshua RodriguezB.B.Lilian [place] [address] [place] [phone] Anesthesia Event Gastroenterology and Rl, 2 Hepatology Ervin Burgos M.D. [address] [place] [phone] Surgery Gastroenterology and Mousa, Matthew ESOPHAG OGASTRODUODENOSCOPY 2 Hepatology Tyrell Rodriguez M.D. [address] [place] [phone] Scheduled Procedures Name Priority Associated Diagnoses Date/Time ESOPHAGOGASTRODUODENOSCOPY Cirrhosis Alc oholic (HCC) 03/20/2022 8:45 AM DERMATOLOGY PHYSICIAN ASSISTANT Hypertension Portal (HCC) documented as of this encounter Procedures Procedure Name Priority Date/Time Associated Comments Diagnosis PROTHROMBIN TIME Routine 06/30/2021 2:27 PM Cirrhosis Alcoholi c Results for this (PT), P DERMATOLOGY PHYSICIAN ASSISTANT (HCC) procedure are i n the results section. documented in this encounter Results (ABNORMAL) Prothrombin Time (PT) (06/30/2021 2:27 PM DERMATOLOGY PHYSICIAN ASSISTANT) [facility] gist Method Time Signature Prothrombin 26.7 (H) 9.4 - 12.5 06/30/2021 MKTO Time, P sec 3:02 PM DERMATOLOGY PHYSICIAN ASSISTANT INR 2.3 0.9 - 1.1 06/30/2021 MKTO 3:02 PM DERMATOLOGY PHYSICIAN ASSISTANT Comment: ----ADDITIONAL INFORMATION---- Standard intensity warfarin therapeutic range: 2.0 to 3.0 ?? High intensity warfarin therapeutic rang e: 2.5 to 3.5 Specimen Anatomical Collection Method Collection Time Receive d Time (Source) Location / / Volume Laterality Blood (Blood, 06/30/2021 2:27 PM 06/30/19 22 2:46 Venous) DERMATOLOGY PHYSICIAN ASSISTANT PM DERMATOLOGY PHYSICIAN ASSISTANT Magaly Molina P.A.-C. M.S. LAB BLOOD ADD-ON Performing Organization Address City/State/ZIP Code Phon e Number [facility]- [address] [place] [address] [place] [address] [address] documented in this encounter Visit Diagnoses Diagnosis Cirrhosis Alcoholic (HCC) Cirrhosis Alcoholic (HCC) Cirrhosis Alcoholic (HCC) Hypertension Portal (HCC) documented in this encounter Additional Health Concerns Infection Onset Date Last Indicated Resolved Time COVID19 Pending 06/30/2021 06/30/2021 06/30/2021 10:43 PM DERMATOLOGY PHYSICIAN ASSISTANT documented as of this encounter Care Teams Special Services Coordinator Relationship Specialty Start Date End Date Elsewhere, Pcp PCP - General Family Medicine 03/10/20 11/30/21 Ervin Schroeder MD Referring Provider Family Medicine 03/24/[address] [place] [address] documented as of this encounter
--- OUTSIDE RECORDS SUMMARY | 2022-02-14 22:12 | XMS_ITS | Encounter Summary ---
:1990 Author Organization [facility] Address [address] [place] [address] Care Team Providers Name Role Phone Elsewhere, Pcp Primary Care Provider Unavailable Encounter Details Date Type Department Care Team Description 07/16/2021 Clinical Communication Department of Kerry Naranjo Gastroenterology in [place], [place] C.N.P., M.S.N. 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 [address] [place] [phone] Virtual Visit Transplant Luischantell Matthew 2 YTyrell M.D. [address] [place] [phone] Office Visit Gastroenterology and Matthew Jerome 2 Hepatology Tyrell Rodriguez M.D. [address] [place] [phone] Appointment Radiology Matthew Jerome 2 Tyrell Rodriguez M.D. [address] [place] [phone] [facility] Gastroenterology and Matthew Jerome Cirrhos is Alcoholic (HCC) 2 Encounter Hepatology Tyrell Rodriguez M.D. [address] [place] [phone] Anesthesia Event Gastroenterology and Rl, 2 Hepatology Ervin Burgos M.D. [address] [place] [phone] Surgery Gastroenterology and Matthew Jerome ESOPHAG OGASTRODUODENOSCOPY 2 Hepatology Joshua RodriguezB.BGraeme, Lilian [address] [place] [phone] Scheduled Procedures Name Priority Associated Diagnoses Date/Time ESOPHAGOGASTRODUODENOSCOPY Cirrhosis Alc oholic (HCC) 03/20/2022 8:45 AM CORE DRIER Hypertension Portal (HCC) documented as of this encounter Visit Diagnoses Not on filedocumented in this encounter Care Teams E Learning Manager Relationship Specialty Start Date End Date Elsewhere, Pcp PCP - General Family Medicine 03/10/20 11/30/21 Ervin Schroeder MD Referring Provider Family Medicine 03/24/[address] [place] [phone] documented as of this encounter
--- OUTSIDE RECORDS SUMMARY | 2022-02-14 22:12 | XMS_ITS | Encounter Summary ---
:1990 Author Organization [facility] Address [address] [place] [address] Care Team Providers Name Role Phone Elsewhere, Pcp Primary Care Provider Unavailable Reason for Visit Reason Comments Fever Fever during noc 100.4, Dr. Fish recommending eval for labs due to cirrhosis. Encounter Details Date Type Department Care Team Description 07/06/2021 Emergency [facility] Juan Dang Fever Of Unknown Origin Martin Holloway M.D. (Primary Dx) Emergency Department [address] [place] [phone] Social History Tobacco Use Types Packs/Day Years [...] you attend hoahaoism or Patient refused 2021 faith services? 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 OPERATOR BRANDY documented as of this encounter Last Filed Vital Signs Vital Sign Reading Time Taken Comments Blood Pressure 95/50 07/06/2021 1:30 PM STILL OPERATOR BRANDY Pulse 87 07/06/2021 1:45 PM STILL OPERATOR BRANDY Temperature 37.1 ??C (98.8 ??F) 07/06/2021 1:45 PM STILL OPERATOR BRANDY Respiratory Rate 15 07/06/2021 1:45 PM STILL OPERATOR BRANDY Oxygen Saturation 98% 07/06/2021 1:45 PM STILL OPERATOR BRANDY Inhaled Oxygen Concentration - - Weight 55.1 kg (121 lb 7.6 oz) 07/06/2021 10:41 AM STILL OPERATOR BRANDY Height 157.5 cm (5' 2) 07/06/2021 10:41 AM STILL OPERATOR BRANDY Body Mass Index 22.22 07/06/2021 10:41 AM STILL OPERATOR BRANDY documented in this encounter Discharge Instructions Discharge Juan Forrester M.D. - 07/06/2021 1:21 PM CST As per Dr. Fish you may take Tylenol as needed for pain, please limit to less than 2,000 mg a day Return to ER if symptoms persist, worsen, or any concerns Please follow all verbal instructions given to you Please follow-up with your primary care doctor or outside plant field engineer Please read all attached documents at discharge It was a pleasure taking care of you today. We hope you feel better soon L OPERATOR BRANDY documented in this encounter Medications at Time [...] alcoholic liver cirrhosis referred to ED by outside plant field engineer for subjective fever. Patient states she felt [...] card, plus non medical, last 3/6/am Social History Substance and Sexual Activity Alcohol [...] Negative Bilirubin Moderate (*) pH 7.0 Specific [place] 1.020 Urobilinogen 1.0 White Blood Cells None [...] PCR Undetected Respiratory Syncytial Virus, PCR Undetected [id number]-2, PCR Undetected Specimen Source Swab, Nasopharynx BACTERIA / INES CULTURE, BLOOD Narrative: Specimen Information: Specimen ID: [id number] Specimen Source: Blood, Peripheral Draw Specimen Comment: Specimen Source Site: Blood Specimen Collection Start Date: 07/06/2021 11:15 AM Specimen Received Date: 07/06/2021 11:30 AM Specimen ID: [id number] Specimen Source: Blood, Peripheral Draw Specimen Comment: Specimen Source Site: Blood Specimen Collection Start Date: 07/06/2021 11:15 AM Specimen Received Date: 07/06/2021 11:30 AM Specimen ID: [id number] Specimen Source: Blood, Peripheral Draw Specimen Comment: Specimen Source Site: Blood Specimen Collection Start Date: 07/06/2021 11:15 AM Specimen Received Date: 07/06/2021 11:30 AM BACTERIA / INES CULTURE, BLOOD Narrative: Specimen Information: Specimen ID: [id number] Specimen Source: Blood, Peripheral Draw Specimen Comment: Specimen Source Site: Blood Specimen Collection Start Date: 07/06/2021 11:27 AM Specimen Received Date: 07/06/2021 11:30 AM Specimen ID: [id number] Specimen Source: Blood, Peripheral Draw Specimen Comment: Specimen Source Site: Blood Specimen Collection Start Date: 07/06/2021 11:30 AM Specimen Received Date: 07/06/2021 11:30 AM Specimen ID: [id number] Specimen Source: Blood, Peripheral Draw Specimen Comment: [...] alcoholic liver cirrhosis referred to ED by outside plant field engineer for subjective fever. Denies cough, shortness of [...] is/are normal. Juan Dang M.D. 07/08/21 0041 L OPERATOR BRANDY documented in this encounter Plan of Treatment Upcoming Encounters Date Type Specialty Care Team Description Telemedicine Transplant 2 Appointment Radiology Matthew Jerome 2 YTyrell, Lilian [address] [place] [phone] Appointment Gastroenterology demian Silver 2 Hepatology Yue Burciaga M.D. [address] [place] [phone] Virtual Visit Transplant Matthew Jerome 2 YTyrell, Lilian [address] [place] [phone] Office Visit Gastroenterology and Matthew Jermoe 2 Hepatology Tyrell Rodriguez M.D. [address] [place] [phone] Appointment Radiology LuisMatthew abdul 2 YTyrell M.D. [address] [place] [phone] [facility] Gastroenterology and Matthew Jerome Cirrhos is Alcoholic (HCC) 2 Encounter Hepatology Tyrell Rodriguez M.D. [address] [place] [phone] Anesthesia Event Gastroenterology and Rl, 2 Hepatology Ervin Burgos M.D. [address] [place] [phone] Surgery Gastroenterology and Matthew Jerome ESOPHAG OGASTRODUODENOSCOPY 2 Hepatology Joshua RodriguezBSumaBGraeme, Lilian [address] [place] [phone] Scheduled Procedures Name Priority Associated Diagnoses Date/Time ESOPHAGOGASTRODUODENOSCOPY Cirrhosis Alc oholic (HCC) 03/20/2022 8:45 AM STILL OPERATOR BRANDY Hypertension Portal (HCC) documented as of this encounter Procedures Procedure Name Priority Date/Time Associated Comments Diagnosis BACTERIAL CULTURE, STAT 07/06/2021 11:59 Resul ts for AEROBIC + SUSC, AM STILL OPERATOR BRANDY this procedu re URINE are in the results section. URINALYSIS WITH STAT 07/06/2021 11:54 Results for MICROSCOPIC AM STILL OPERATOR BRANDY this procedure are in the results section. BACTERIA / INES STAT 07/06/2021 11:27 Resul ts for CULTURE, BLOOD AM STILL OPERATOR BRANDY this procedur e are in the results section. LACTATE, B STAT 07/06/2021 11:21 Results for AM STILL OPERATOR BRANDY this procedure are in the results section. MORPHOLOGY STAT 07/06/2021 11:21 Results for EVALUATION AM STILL OPERATOR BRANDY this procedure are in the results section. CBC WITH STAT 07/06/2021 11:21 Results for DIFFERENTIAL, B AM STILL OPERATOR BRANDY this procedu re are in the results section. COMPREHENSIVE STAT 07/06/2021 11:21 Results fo r METABOLIC PANEL, S/P AM STILL OPERATOR BRANDY this pr ocedure are in the results section. BACTERIA / INES STAT 07/06/2021 11:15 Resul ts for CULTURE, BLOOD AM STILL OPERATOR BRANDY this procedur e are in the results section. DX CHEST PORTABLE 1 RAD - Semiurgent 07/06/2021 10:58 Results for VIEW (Fast; most ED AM STILL OPERATOR BRANDY this procedur e patients; some are in the inpatients) results section. SARS COV-2,INFLUENZA STAT 07/06/2021 10:51 Res ults for A/B,RSV,PCR, V AM STILL OPERATOR BRANDY this procedur e are in the results section. documented in this encounter Results Bacterial Culture, Aerobic + Susc, Urine (07/06/2021 11:59 AM STILL OPERATOR BRANDY) [facility] gist Method Time Signature Urine Culture No growth 07/07/2021 MKTO after 1 day 11:49 AM STILL OPERATOR BRANDY of incubation. Specimen Anatomical Collection Method Collection Time Receive d Time (Source) Location / / Volume Laterality Urine (Urine, 07/06/2021 11:59 07/06/2021 Midstream) AM STILL OPERATOR BRANDY 11:59 AM STILL OPERATOR BRANDY Comment: Specimen Source Site: Urine Juan Dang M.D. LAB MICROBIOLOGY - GENERAL O RDERABLES Performing Organization Address City/State/ZIP Code Phon e Number [facility]- [address] [place] [phone] [place] [address] System in [place] [address] [place] [address] (ABNORMAL) Urinalysis with Microscopic: Urine, Midstream (07/06/2021 11:54 AM STILL OPERATOR BRANDY) Analysis Performed At [facility] Time Signature Source Urine, Urine, 07/06/2021 MKTO Midstream 12:04 PM STILL OPERATOR BRANDY Clarity Clear Clear 07/06/2021 MKTO 12:04 PM STILL OPERATOR BRANDY Color Priscilla 07/06/2021 MKTO 12:04 PM STILL OPERATOR BRANDY Comment: ----REFERENCE VALUE---- Colorless Yellow Priscilla Blood Negative Negative 07/06/2021 12:04 PM STILL OPERATOR BRANDY MKTO Nitrite Negative Negative 07/06/2021 12:04 PM STILL OPERATOR BRANDY MKTO Leukocyte Esterase Trace (A) Negative 07/06/2021 12:[address] MKTO Protein Negative mg/dL 07/06/2021 12:04 PM STILL OPERATOR BRANDY MKTO Comment: ----REFERENCE VALUE---- Negative Trace Glucose Negative Negative mg/dL 07/06/2021 12:04 PM STILL OPERATOR BRANDY M KTO Ketone Negative Negative mg/dL 07/06/2021 12:04 PM STILL OPERATOR BRANDY M KTO Bilirubin Moderate (A) Negative 07/06/2021 12:04 PM STILL OPERATOR BRANDY MKT O pH 7.0 5.0 - 8.0 07/06/2021 12:04 PM STILL OPERATOR BRANDY MKTO Specific [place] 1.020 1.001 - 1.035 07/06/2021 12:04 PM STILL OPERATOR BRANDY MKTO Urobilinogen 1.0 0.2 - 1.0 mg/dL 07/06/2021 12:[address] MKTO White Blood Cells None Seen /hpf 07/06/2021 12:08 PM CS T MKTO Comment: ----REFERENCE VALUE---- Males: 0-3 Females: 0-10 Unknown: 0-10 Red Blood Cells None Seen 0 - 2 /hpf 07/06/2021 12:08 PM STILL OPERATOR BRANDY MKTO Hyaline Casts 1-3 /lpf 07/06/2021 12:08 PM STILL OPERATOR BRANDY MK TO Specimen Anatomical Collection Method Collection Time Receive d Time (Source) Location / / Volume Laterality Urine (Urine, 07/06/2021 11:54 07/06/2021 Midstream) AM STILL OPERATOR BRANDY 11:59 AM STILL OPERATOR BRANDY Juan Dang M.D. LAB URINE ORDERABLES Performing Organization Address [facility]/ZIP [facility] Phon e Number [facility]- [address] [place] [phone] [place] [address] Bacteria / Ines Culture, Blood #2 (07/06/2021 11:27 AM STILL OPERATOR BRANDY) [facility] Method Time Signature Bacteria/Adriana No growth 07/11/2021 MKTO da Culture, after 5 12:05 PM STILL OPERATOR BRANDY Blood day/s of incubation. Specimen (Source) Anatomical Collection Method Collection Time Re ceived Time Location / / Volume Laterality Blood (Blood, 07/06/2021 11:27 07/06/2021 Peripheral Draw) AM STILL OPERATOR BRANDY 11:30 AM CS T Comment: Specimen Source Site: Blood Juan Dang M.D. LAB MICROBIOLOGY - GENERAL O RDERABLES Performing Organization Address [facility] Phon e Number [facility]- [address] [place] [phone] [place] [address] (ABNORMAL) Morphology Evaluation (07/06/2021 11:21 AM STILL OPERATOR BRANDY) [facility] Method Time Signature RBC Morphology See Specific 07/06/2021 MKTO Findings 12:08 PM STILL OPERATOR BRANDY PLT Estimate Decreased (A) Adequate 07/06/2021 MKTO 12:08 PM STILL OPERATOR BRANDY Acanthocytes Marked (A) 07/06/2021 MKTO 12:08 PM STILL OPERATOR BRANDY Polychromasia Slight (A) Not Seen 07/06/2021 MKTO 12:08 PM STILL OPERATOR BRANDY Specimen Anatomical Collection Method Collection Time Receive d Time (Source) Location / / Volume Laterality Blood 07/06/2021 11:21 07/06/2021 AM STILL OPERATOR BRANDY 11:30 AM STILL OPERATOR BRANDY Juan Dang M.D. LAB BLOOD ADD-ON Performing Organization Address City/State/ZIP Code Phon e Number [facility]- [address] [place] [phone] [place] [address] [address] (ABNORMAL) Lactate, B (07/06/2021 11:21 AM STILL OPERATOR BRANDY) P athologist Signature Lactate, B 2.4 (H) 0.5 - 2.2 07/06/2021 MKTO mmol/L 11:33 AM STILL OPERATOR BRANDY Specimen Anatomical Collection Method Collection Time Receive d Time (Source) Location / / Volume Laterality Blood 07/06/2021 11:21 07/06/2021 AM STILL OPERATOR BRANDY 11:30 AM STILL OPERATOR BRANDY Juan Dang M.D. LAB BLOOD NON ADD-ON Performing Organization Address City/State/ZIP Code Phon e Number [facility]- [address] [place] [phone] [place] [address] System [address] (ABNORMAL) Comprehensive Metabolic Panel (07/06/2021 11:21 AM STILL OPERATOR BRANDY) Analysis Performed At Patho logist Time Signature Potassium, P 4.1 3.6 - 5.2 07/06/2021 MKTO mmol/L 11:55 AM STILL OPERATOR BRANDY Sodium, P 133 (L) 135 - 145 07/06/2021 MKTO mmol/L 11:55 AM STILL OPERATOR BRANDY Chloride, P 100 98 - 107 07/06/2021 MKTO mmol/L 11:55 AM STILL OPERATOR BRANDY Bicarbonate, P 21 (L) 22 - 29 07/06/2021 MKTO mmol/L 11:55 AM STILL OPERATOR BRANDY Anion Gap, P 12 7 - 15 07/06/2021 MKTO 11:55 AM STILL OPERATOR BRANDY BUN (Blood Urea 5 (L) 6 - 21 07/06/2021 MKTO Nitrogen), P mg/dL 11:55 AM STILL OPERATOR BRANDY Creatinine 0.55 (L) 0.59 - 07/06/2021 MKTO 1.04 mg/dL 11:55 AM STILL OPERATOR BRANDY eGFR-Black/Afri >90 >=60 07/06/2021 MKTO can [place] mL/min/BSA 11:55 AM STILL OPERATOR BRANDY Comment: ----ADDITIONAL INFORMATION---- Estimated GFR calculated using the 2009 CKD_EPI creatinine equation. eGFR Non-Black/ >90 >=60 mL/min/BSA 07/06/2021 11:55 AM STILL OPERATOR BRANDY MKTO Comment: ----ADDITIONAL INFORMATION---- Estimated GFR calculated using the 2009 CKD_EPI creatinine equation. Calcium, Total, P 9.2 8.6 - 10.0 mg/dL 07/06/2021 11:5 5 AM MKTO STILL OPERATOR BRANDY Glucose, P 97 70 - 140 mg/dL 07/06/2021 11:55 AM MKTO STILL OPERATOR BRANDY Protein, Total, P 5.8 (L) 6.3 - 7.9 g/dL 07/06/2021 11:55 AM MKTO STILL OPERATOR BRANDY Albumin, P 3.5 3.5 - 5.0 g/dL 07/06/2021 11:55 AM MKTO STILL OPERATOR BRANDY Aspartate Aminotransferase 71 (H) 8 - 43 U/L 07/06/2021 1 1:55 AM MKTO (AST), P STILL OPERATOR BRANDY Alkaline Phosphatase, P 173 (H) 35 - 104 U/L 07/06/2021 11 :55 AM MKTO STILL OPERATOR BRANDY Alanine Aminotransferase 26 7 - 45 U/L 07/06/2021 11: 55 AM MKTO (ALT), P STILL OPERATOR BRANDY Bilirubin, Total, P 7.0 (H) <=1.2 mg/dL 07/06/2021 11:55 A M MKTO STILL OPERATOR BRANDY Specimen Anatomical Collection Method Collection Time Receive d Time (Source) Location / / Volume Laterality Blood (Blood, 07/06/2021 11:21 07/06/2021 Venous) AM STILL OPERATOR BRANDY 11:30 AM STILL OPERATOR BRANDY Juan Dang M.D. LAB BLOOD ADD-ON Performing Organization Address City/State/ZIP Code Phon e Number [facility]- [address] [place] [phone] [place] [address] (ABNORMAL) CBC with Differential, Blood (07/06/2021 11:21 AM STILL OPERATOR BRANDY) [facility] Method Time Signature Hemoglobin 7.3 (L) 11.6 - 07/06/2021 MKTO 15.0 g/dL 12:08 PM STILL OPERATOR BRANDY Hematocrit 22.1 (L) 35.5 - 07/06/2021 MKTO 44.9 % 12:08 PM STILL OPERATOR BRANDY Erythrocytes 2.02 (L) 3.92 - 07/06/2021 MKTO 5.13 12:08 PM STILL OPERATOR BRANDY x10(12)/L MCV 109.4 (H) 78.2 - 07/06/2021 MKTO 97.9 fL 12:08 PM STILL OPERATOR BRANDY RBC Distrib Width 13.6 12.2 - 07/06/2021 MKTO 16.1 % 12:08 PM STILL OPERATOR BRANDY Platelet Count 66 (L) 157 - 371 07/06/2021 MKTO x10(9)/L 12:08 PM STILL OPERATOR BRANDY Leukocytes 7.7 3.4 - 9.6 07/06/2021 MKTO x10(9)/L 12:08 PM STILL OPERATOR BRANDY Neutrophils 5.72 1.56 - 07/06/2021 MKTO 6.45 12:08 PM STILL OPERATOR BRANDY x10(9)/L Lymphocytes 1.14 0.95 - 07/06/2021 MKTO 3.07 12:08 PM STILL OPERATOR BRANDY x10(9)/L Monocytes 0.73 0.26 - 07/06/2021 MKTO 0.81 12:08 PM STILL OPERATOR BRANDY x10(9)/L Eosinophils 0.08 0.03 - 07/06/2021 MKTO 0.48 12:08 PM STILL OPERATOR BRANDY x10(9)/L Basophils 0.05 0.01 - 07/06/2021 MKTO 0.08 12:08 PM STILL OPERATOR BRANDY x10(9)/L Specimen Anatomical Collection Method Collection Time Receive d Time (Source) Location / / Volume Laterality Blood (Blood, 07/06/2021 11:21 07/06/2021 Venous) AM STILL OPERATOR BRANDY 11:30 AM STILL OPERATOR BRANDY Juan Dang M.D. LAB BLOOD ADD-ON Performing Organization Address City/State/ZIP Code Phon e Number [facility]- [address] [place] [phone] [place] [address] [address] Bacteria / Ines Culture, Blood #1 (07/06/2021 11:15 AM STILL OPERATOR BRANDY) [facility] gist Method Time Signature Bacteria/Adriana No growth 07/11/2021 MKTO da Culture, after 5 12:05 PM STILL OPERATOR BRANDY Blood day/s of incubation. Specimen (Source) Anatomical Collection Method Collection Time Re ceived Time Location / / Volume Laterality Blood (Blood, 07/06/2021 11:15 07/06/2021 Peripheral Draw) AM STILL OPERATOR BRANDY 11:30 AM CS T Comment: Specimen Source Site: Blood Juan Dang M.D. LAB MICROBIOLOGY - GENERAL O RDERABLES Performing Organization Address City/State/ZIP Code Phon e Number [facility]- [address] [place] [address] [place] [address] System in [place] [address] [facility] DX Chest Portable 1 View (07/06/2021 10:58 AM STILL OPERATOR BRANDY) Anatomical Region Laterality Modality Chest, Thoracic RST LOS, Thoracic ARZ LOS, Thoracic N/A Digital Radiography FLA LOS Specimen (Source) Anatomical Collection Method Collection Time Re ceived Time Location / / Volume Laterality 07/06/2021 11:00 AM STILL OPERATOR BRANDY Impressions 07/06/2021 11:07 AM STILL OPERATOR BRANDY No acute radiographic abnormalities are demonstrated. Narrative 07/06/2021 11:07 AM STILL OPERATOR BRANDY EXAM: DX CHEST PORTABLE 1 VIEW COMPARISON: [...] A/B, RSV, PCR Symptomatic (07/06/2021 10:51 AM STILL OPERATOR BRANDY) [facility] Method Time Signature Influenza A, Undetected Undetected 07/06/2021 MKTO PCR 11:34 AM STILL OPERATOR BRANDY Comment: Influenza A viral RNA absent. Influenza B, PCR Undetected Undetected 07/06/2021 11:[address] MKTO Comment: Influenza B viral RNA absent. Respiratory Syncytial Virus, Undetected Undetected 022 11:34 AM STILL OPERATOR BRANDY MKTO PCR Comment: RSV RNA absent. IFLN-Vjpguyhmrob-0, PCR Undetected Undetected 07/06/2021 11: 34 AM STILL OPERATOR BRANDY MKTO Comment: SARS-CoV-2 RNA absent. ?? ----ADDITIONAL INFORMATION---- This RT-PCR test using the Xpert Xpress SARS-CoV-2/Flu/RSV assay ([employer] performed on the [employer] DX systems has received Emergency Use Authorization (EU A) by the U.S. Food and Drug Administration. Performanc e characteristics were verified by [facility] inic in a manner consistent with CLIA requirements . Fact sheets for this Emergency Use Autho rization (EUA) assay can be found at the following link s: For Healthcare Providers: https://www.fda.gov/media/560429/downloa d For Patients: https://www.fda.gov/media/929483/downloa d Specimen Source Swab, Nasopharynx 07/06/2021 10:55 AM STILL OPERATOR BRANDY MKTO Specimen Anatomical Collection Method Collection Time Receive d Time (Source) Location / / Volume Laterality Varies 07/06/2021 10:51 07/06/2021 (Nasopharynx) AM STILL OPERATOR BRANDY 10:55 AM STILL OPERATOR BRANDY Juan Dang M.D. LAB MICROBIOLOGY - GENERAL O RDERABLES Performing Organization Address City/State/ZIP Code Phon e Number [facility]- [address] [place] [address] [place] [address] [address] documented in this encounter Visit Diagnoses Diagnosis Fever Of Unknown Origin - Primary Cirrhosis Alcoholic (HCC) Cirrhosis Alcoholic (HCC) Hypertension Portal (HCC) documented in this encounter Administered Medications Inactive Administered Medications - up to 3 most recent administrations Medication Order MAR Action Action Date Dose Rate Site fentaNYL injection 50 mcg Given 07/06/2021 11:32 AM STILL OPERATOR BRANDY 50 mcg (SUBLIMAZE) 50 mcg, intravenous, Once, [...] intravenous, As needed, line care, Starting on [place] 07/06/21 at 1044, Prior to and following infusion and between multi ple consecutive infusions: sodium chloride 0.9 % injection sodium chloride 0.9 % injection 3 mL 3 mL, intravenous, Every 12 hours scheduled, First dos e on [place] 07/06/21 at 2100, Peripheral Intravenous Catheter and Rapi d Infusion Catheter, when no infusion to maintain patency documented in this encounter Active and Recently Administered Medications Times are shown in STILL OPERATOR BRANDY. Scheduled Medication Order 07/04/2021 07/05/2021 07/06/2021 fentaNYL injection 50 mcg (SUBLIMAZE) (COMPLETED) 1132 (Given - Provider: Roseline Solorzano R.N.) 50 mcg, intravenous, Once, On [place] 07/06/21 at 1110, For 1 dose sodium chloride 0.9 % injection 3 mL 3 mL, intravenous, Every 12 hours schedu led, First dose on [place] 07/06/21 at 2100, Peripheral Intravenous Catheter and Rapid Infusion Catheter, when no infusion to maintain patency PRN Medication Order 07/04/2021 07/05/2021 07/06/2021 sodium chloride 0.9 % injection 10 mL 10 mL, intravenous, As needed, line care , Starting on [place] 07/06/21 at 1044, Peripheral Intravenous Catheter and Rapid Infusion Catheter, prior to blood sampling, post blood transfusion or post blood sampling sodium chloride 0.9 % injection 3 mL 3 mL, intravenous, As needed, line care, Starting on [place] 07/06/21 at 1044, Prior to and following infusion and between multiple consecutive infusions: sodium chloride 0.9 % injection documented in this encounter Additional Health Concerns Infection Onset Date Last Indicated Resolved Time COVID19 Pending 07/06/2021 07/06/2021 07/06/2021 11:34 AM STILL OPERATOR BRANDY documented as of this encounter Care Teams Road Mechanic Relationship Specialty Start Date End Date Elsewhere, Pcp PCP - General Family Medicine 03/10/20 11/30/21 Ervin Schroeder MD Referring Provider Family Medicine 03/24/[address] [place] [phone] documented as of this encounter
--- OUTSIDE RECORDS SUMMARY | 2022-02-14 22:12 | XMS_ITS | Encounter Summary ---
:1990 Author Organization [facility] Address [address] [place] [address] Care Team Providers Name Role Phone Elsewhere, Pcp Primary Care Provider Unavailable Encounter Details Date Type Department Care Team Description 07/02/2021 Documentation Department of Gastroenterology Myke Fish, in [place], [facility] joe LewisB.B.S [address] [facility] [address] [place] [phone] [place], [place] [phone] Social History Tobacco Use Types Packs/Day [...] you attend sikhism or Patient refused 2021 gnosticist services? 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 S AND SERVICE REPRESENTATIVE documented in this encounter Plan of Treatment Upcoming Encounters Date Type Specialty Care Team Description Telemedicine Transplant 2 Appointment Radiology Matthew Jerome 2 Y, VikBGraeme, M.Jeri [address] [place] [phone] Appointment Gastroenterology and Adrianne, 2 Hepatology Yue Burciaga M.D. [address] [place] [phone] Virtual Visit Transplant Matthew Jerome 2 Joshua RodriguezBSumaBLilian Bedolla [address] [place] [phone] Office Visit Gastroenterology and Matthew Jerome 2 Hepatology Joshua RodriguezBSumaBLilian Bedolla [address] [place] [phone] Appointment Radiology Matthew Jerome 2 Jennifer M.B.B.Lilian Stock[place] [address] [place] [phone] Hospital Gastroenterology and Queenie Matthew Cirrhos is Alcoholic (HCC) 2 Encounter Hepatology Joshua oRdriguezB.BLilian Bedolla [address] [place] [phone] Anesthesia Event Gastroenterology and Rl, 2 Hepatology Ervin Burgos M.D. [address] [place] [phone] Surgery Gastroenterology and Matthew Jerome ESOPHAG OGASTRODUODENOSCOPY 2 Hepatology Joshua RodriguezB.B.Lilian Stockton [address] [place] [phone] Scheduled Procedures Name Priority Associated Diagnoses Date/Time ESOPHAGOGASTRODUODENOSCOPY Cirrhosis Alc oholic (HCC) 03/20/2022 8:45 AM SALES AND SERVICE REPRESENTATIVE Hypertension Portal (HCC) documented as of this encounter Visit Diagnoses Not on filedocumented in this encounter Care Teams Field Service Manager Relationship Specialty Start Date End Date Elsewhere, Pcp PCP - General Family Medicine 03/10/20 11/30/21 Ervin Schroeder MD Referring Provider Family Medicine 03/24/[address] [place] [phone] documented as of this encounter
--- OUTSIDE RECORDS SUMMARY | 2022-02-14 22:12 | XMS_ITS | Encounter Summary ---
:1990 Author Organization [facility] Address [address] [place] [address] Care Team Providers Name Role Phone Elsewhere, Pcp Primary Care Provider Unavailable Encounter Details Date Type Department Care Team Description 07/15/2021 Hospital Encounter Department of Kerry Naranjo is Alcoholic Laboratory Medicine S, CLOTH REELER, (HCC) in [place], C.N.PSuma, M.S.N[address] ADI PANIAGUA [phone] Social History Tobacco Use Types Packs/Day [...] you attend pentecostalism or Patient refused 2021 christian services? Do [...] Date Recorded Female 04/12/2021 7:39 PM DATABASE COORDINATOR documented as of this encounter Medications [...] Radiology Matthew Jerome 2 Y, M.B.BLilian Bedolla [address] [place] [phone] Appointment Gastroenterology and [place], 2 Hepatology Yue Burciaga M.D. [address] [place] [phone] Virtual Visit Transplant Luischantell Matthew 2 YTyrell M.D. [address] [place] [phone] Office Visit Gastroenterology and Matthew Jerome 2 Hepatology Tyrell Rodriguez M.D. [address] [place] [phone] Appointment Radiology Matthew Jerome 2 Tyrell Rodriguez M.D. [address] [place] [phone] [facility] Gastroenterology and Matthew Jerome Cirrhos is Alcoholic (HCC) 2 Encounter Hepatology Tyrell Rodriguez M.D. [address] [place] [phone] Anesthesia Event Gastroenterology and Rl, 2 Hepatology Ervin Burgos M.D. [address] [place] [phone] Surgery Gastroenterology and Matthew Jerome ESOPHAG OGASTRODUODENOSCOPY 2 Hepatology Joshua RodriguezB.BGraeme, Lilian [address] [place] [phone] Scheduled Procedures Name Priority Associated Diagnoses Date/Time ESOPHAGOGASTRODUODENOSCOPY Cirrhosis Alc oholic (HCC) 03/20/2022 8:45 AM DATABASE COORDINATOR Hypertension Portal (HCC) documented as of [...] Address City/State/ZIP Code Phon e Number [facility] - [address] [place], [place] [address] [facility] [place] [address] [facility] [address] (ABNORMAL) Hepatic Function Panel [...] City/State/ZIP Code Phon e Number [facility]- [address], [place] [address] [place] [address] System in [facility] [address] [place] [address] Basic Metabolic Panel (07/15/2021 10:49 AM CDT) [...] CDT eGFR-Black/Afric >90 >=60 07/15/2021 [place] an Maldivian mL/min/BSA 1:52 PM CDT Comment: ----ADDITIONAL INFORMATION---- [...] City/State/ZIP Code Phon e Number [facility] [address] [place] [address] [place] [address] System in [address] (ABNORMAL) CBC with Differential, Blood (07/15/2021 10:49 AM CDT) [facility] Method Time Signature Hemoglobin 8.2 (L) [...] CDT 10:49 AM CDT Kerry Naranjo APRN C.N.P., M.S.N. LAB BLOOD ADD-ON Performing Organization Address City/State/ZIP Code Phon e Number [address] [place] [address] [facility] [address] [place] [address] System [address] documented in this encounter Visit Diagnoses Diagnosis Cirrhosis Alcoholic (HCC) Cirrhosis Alcoholic (HCC) Cirrhosis Alcoholic (HCC) Hypertension Portal (HCC) documented in this encounter Care Teams Sales Promotion Manager Relationship Specialty Start Date End Date Elsewhere, Pcp PCP - General Family Medicine 03/10/20 11/30/21 Ervin Schroeder MD Referring Provider Family Medicine 03/24/[address] [place] [address] documented as of this encounter
--- OUTSIDE RECORDS SUMMARY | 2022-02-14 22:12 | XMS_ITS | Encounter Summary ---
:1990 Author Organization [facility] Address [address] [place] [address] Care Team Providers Name Role Phone Elsewhere, Pcp Primary Care Provider Unavailable Encounter Details Date Type Department Care Team Description 07/08/2021 Clinical Communication Department of Kerry Naranjo Gastroenterology in [place], [place] C.N.P., M.S.N. 1025 [facility] 1025 [place] [address] [place], [place] [phone] Social History Tobacco Use Types Packs/Day [...] you attend pentecostalism or Patient refused 2021 spiritism services? 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 [address] [place] [phone] Virtual Visit Transplant Matthew Jerome 2 YJoshuaBSumaBLilian Bedolla [address] [place] [phone] Office Visit Gastroenterology and Matthew Jerome 2 Hepatology Vik RodriguezBLilian Bedolla [address] [place] [phone] Appointment Radiology Matthew Jerome 2 YTyrell M.D. [address] [place] [phone] Hospital Gastroenterology and Matthew Jerome Cirrhos is Alcoholic (HCC) 2 Encounter Hepatology Tyrell Rodriguez M.D. [address] [place] [phone] Anesthesia Event Gastroenterology and [facility], 2 Hepatology Ervin Burgos M.D. [address] [place] [phone] Surgery Gastroenterology and Flchantell Matthew ESOPHAG OGASTRODUODENOSCOPY 2 Hepatology Tyrell Rodriguez M.D. [address] [place] [phone] Scheduled Procedures Name Priority Associated Diagnoses Date/Time ESOPHAGOGASTRODUODENOSCOPY Cirrhosis Alc oholic (HCC) 03/20/2022 8:45 AM EDGE TRIMMER MECHANIC Hypertension Portal (HCC) documented as of this encounter Visit Diagnoses Not on filedocumented in this encounter Care Teams Pinking Machine Operator Relationship Specialty Start Date End Date Elsewhere, Pcp PCP - General Family Medicine 03/10/20 11/30/21 Ervin Schroeder MD Referring Provider Family Medicine 03/24/[address] [place] [address] documented as of this encounter
--- OUTSIDE RECORDS SUMMARY | 2022-02-14 22:12 | XMS_ITS | Encounter Summary ---
:1990 Author Organization [facility] Address [address] [place] [address] Care Team Providers Name Role Phone Elsewhere, Pcp Primary Care Provider Unavailable Reason for Referral Appointment Request (Routine) - Closed Specialty Diagnoses / Procedures Referred By Contact Refer red To Contact Diagnoses Cirrhosis Alcoholic (HCC) Ascites Anemia Macrocytic Thrombocytopenia (HCC) Deficiency Coagulation Acquired (HCC) Kerry Naranjo APRN, Procedures Prothrombin Time (PT) C.N.Shanita., M.S.N. 10[address] [place] [phone] Referral ID Status Reason Start Date Expiration Date Visits Requ ested Visits Authorized [id number] Closed 07/07/2021 07/07/2022 1 SECURITY Encounter Details Date Type Department Care Team Description 07/04/2021 Clinical Communication Department of Felicita Spicer Gastroenterology in [place], [place] [phone] 1025 [place] [address] Social History Tobacco Use Types Packs/Day Years [...] you attend alevism or Patient refused 2021 hinduism services? Do [...] at Date Recorded Female 04/12/2021 7:39 PM VP SECURITY documented as of this encounter Miscellaneous Notes Telephone Encounter - Felicita Spicer L.P.N. - 2021 11:19 AM VP SECURITY As stated below by Kerry Naranjo, the following is the plan for this patient and upcoming EGD. I have ordered Vitamin K 5 mg X 7 days, to take orally. Then follow up by repeat PT/INR on the 8th day. Please call pt and ask to get the lab at [facility] in [place]; this allows access to results. Past attempts [...] it was okay to leave detailed message. Shearer Helper called to again discuss plan with patient and left a detailed message as outlined above. Informed her to expect a call from scheduling to set up the lab appointment. SECURITY Telephone Encounter - Felicita Spicer L.P.N. - [...] had no further questions at this time. SECURITY Telephone Encounter - Kerry Naranjo APRN, C.N.P., M.S.N. - 07/08/2021 12:53 PM CST Her upper GI endoscopy is screening for the presence of varices. This is non urgent at this time as to the best of my knowledge she is not currently having any GI bleeding related to the presence of varices. August 12 would be okay Kerry Naranjo APRN, C.N.Frances, M.S.N. SECURITY Telephone Encounter - Mihaela Dudley - 07/08/2021 [...] answer all her questions before the procedure. SECURITY Telephone Encounter - Felicita Spicer L.P.N. - 07/08/2021 10:16 AM VP SECURITY Patient returned call and it was discussed [...] also report that she is currently at [facility] and inquired if [facility] had beds available. Informed her that I am unaware of hospital bed availability. She had no further questions at this time. SECURITY Telephone Encounter - Felicita Spicer L.P.N. - [...] patient can pickup closer to procedure date. SECURITY Telephone Encounter - Kerry Naranjo APRN, C.N.P., M.S.N. - 07/07/2021 1:43 PM CST I have ordered Vitamin K 5 mg X 7 days, to take orally. Then follow up by repeat PT/INR on the 8th day. Please call pt and ask to get the lab at [facility] in [place]; this allows access to results. Past attempts to get lab work from outside PCP has failed. She should start to take the Vitamin K 10 days prior to the r/s EGD. I have also ordered the EGD/MAC, however the last EGD should of been put back in the que and not cancelled. Thank you, Kerry SECURITY Telephone Encounter - Felicita Spicer L.P.N. - 07/04/2021 9:00 AM CST Shearer Helper received a call this morning from endoscopy [...] the patient she does have several questions, movie writer informed her it may not be a bad idea to keep theappointment even if she has not had the EGD as this will allow her to ask her questions and get some answers. Shearer Helper informed the patient that I would follow up regarding the plan moving forward as I see recommendations documented in the chart, however I do not see any specific orders. Informed her that Kerry is out of office today and should be back on Wednesday. SECURITY documented in this encounter Plan of Treatment Upcoming Encounters Date Type Specialty Care Team Description Telemedicine Transplant 2 Appointment Radiology Matthew Jerome 2 YJoshuaB.BGraeme, Lilian [address] [place] [phone] Appointment Gastroenterology and [place], 2 Hepatology Yue Burciaga M.D. [address] [place] [phone] Virtual Visit Transplant Matthew Jerome 2 YJoshuaB.B.Lilian Stockton [address] [place] [phone] Office Visit Gastroenterology and Matthew Jerome 2 Hepatology Joshua RodriguezBSumaBLilian Bedolla [address] [place] [phone] Appointment Radiology LuisNew abdular 2 YJoshuaB.B.Lilian [place] [address] [place] [phone] [facility] Gastroenterology and Matthew Jerome Cirrhos is Alcoholic (HCC) 2 Encounter Hepatology Joshua RodriguezB.BLilian Bedolla [address] [place] [phone] Anesthesia Event Gastroenterology and Rl, 2 Hepatology Ervin Burgos M.D. [address] [place] [phone] Surgery Gastroenterology and Matthew Jerome ESOPHAG OGASTRODUODENOSCOPY 2 Hepatology Jennifer M.B.B.Lilian Stockton [address] [place] [phone] Scheduled Procedures Name Priority Associated Diagnoses Date/Time ESOPHAGOGASTRODUODENOSCOPY Cirrhosis Alc oholic (HCC) 03/20/2022 8:45 AM VP SECURITY Hypertension Portal (HCC) documented as of this encounter Results (ABNORMAL) Prothrombin Time (PT) (08/28/2021 5:01 PM CDT) [facility] gist Method Time Signature Prothrombin 25.9 (H) [...] Address City/State/ZIP Code Phon e Number [facility]- [address] [place] [address] [place] [address] System in [place] [address] [facility] documented in this encounter Visit Diagnoses Diagnosis Cirrhosis Alcoholic (HCC) - Primary Ascites Anemia Macrocytic Thrombocytopenia (HCC) Deficiency Coagulation Acquired (HCC) Cirrhosis Alcoholic (HCC) Cirrhosis Alcoholic (HCC) Hypertension Portal (HCC) documented in this encounter Additional Health Concerns Infection Onset Date Last Indicated Resolved Time COVID19 Pending 07/06/2021 07/06/2021 07/06/2021 11:34 AM VP SECURITY COVID19 Pending 07/25/2021 07/25/2021 07/25/2021 10:07 PM CDT documented as of this encounter Care Teams Manager Sports Relationship Specialty Start Date End Date Elsewhere, Pcp PCP - General Family Medicine 03/10/20 11/30/21 Ervin Schroeder MD Referring Provider Family Medicine 03/24/211979 [address] [place] [address] documented as of this encounter
--- OUTSIDE RECORDS SUMMARY | 2022-02-14 22:12 | XMS_ITS | Encounter Summary ---
:1990 Author Organization [facility] Address [address] [place] [address] Care Team Providers Name Role Phone Elsewhere, Pcp Primary Care Provider Unavailable Encounter Details Date Type Department Care Team Description 07/06/2021 Orders Only Department of Gastroenterology Jennifer Fish, in [place], [facility] M.B.B.S. 1025 [facility] 1025 [place] [address] [place], [place] [phone] (Wo rk) Social History Tobacco Use [...] you attend anabaptist or Patient refused 2021 christian services? Do [...] at Date Recorded Female 04/12/2021 7:39 PM PROVIDER NETWORK MGR documented as of this encounter Plan of Treatment Upcoming Encounters Date Type Specialty Care Team Description Telemedicine Transplant 2 Appointment Radiology Matthew Jerome 2, M.B.BGraeme, Lilian [address] [place] [phone] Appointment Gastroenterology and [place], 2 Hepatology Yue Burciaga M.D. [address] [place] [phone] Virtual Visit Transplant Matthew Jerome 2, M.B.B.S., M.D. [address] [place] [phone] Office Visit Gastroenterology and Matthew Jerome 2 Hepatology Tyrell Rodriguez M.D. [address] [place] [phone] Appointment Radiology Matthew Jerome 2, M.B.B.S., M.D. [address] [place] [phone] Hospital Gastroenterology and [facility] Cirrhos is Alcoholic (HCC) 2 Encounter Hepatology Tyrell Rodriguez M.D. [address] [place] [phone] Anesthesia Event Gastroenterology and Rl, 2 Hepatology Ervin Burgos M.D. [address] [place] [phone] Surgery Gastroenterology and [facility] ESOPHAG OGASTRODUODENOSCOPY 2 Hepatology Tyrell Rodriguez M.D. [address] [place] [phone] Scheduled Procedures Name Priority Associated Diagnoses Date/Time ESOPHAGOGASTRODUODENOSCOPY Cirrhosis Alc oholic (HCC) 03/20/2022 8:45 AM PROVIDER NETWORK MGR Hypertension Portal (HCC) documented as of this encounter Visit Diagnoses Not on filedocumented in this encounter Additional Health Concerns Infection Onset Date Last Indicated Resolved Time COVID19 Pending 07/06/2021 07/06/2021 07/06/2021 11:34 AM PROVIDER NETWORK MGR documented as of this encounter Care Teams Engine Cleaner Relationship Specialty Start Date End Date Elsewhere, Pcp PCP - General Family Medicine 03/10/20 11/30/21 Ervin Schroeder MD Referring Provider Family Medicine 03/24/[address] [place] [address] documented as of this encounter
--- OUTSIDE RECORDS SUMMARY | 2022-02-14 22:12 | XMS_ITS | Encounter Summary ---
:1990 Author Organization [facility] Address [address] [place] [address] Care Team Providers Name Role Phone Elsewhere, Pcp Primary Care Provider Unavailable Reason for Visit Reason Comments Fever Encounter Details Date Type Department Care Team Description 07/06/2021 Nurse Triage Department of [facility] [place] Arabella Rosa, RSumaNSuma Fever Medicine in [place], [address] [place] [address] [address] [phone] [place] [address] Social History Tobacco Use Types [...] you attend denominational or Patient refused 2021 synagogue services? 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 - 07/06/2021 2:57 AM CST Chief Complaint / Reason for Call Patient is a 30 y.o. female calling regarding Fever. Assessment Concern: 100.4 fever with stage 4 liver cirrhosis diagnosis. No other new symptoms. Present for: [place] somewhat feverish over past 24 hours, but more noticeable in past 2 hours. Home cares tried: None Calling to request: Advice The recommended disposition is Information or Advice Only Call. .Transferred for [facility] specialty. Patient unable to take OTCs and is unsure of urgency of fever with medical condition. VE BOARD RACKER documented in this encounter Plan of Treatment Upcoming Encounters Date Type Specialty Care Team Description Telemedicine Transplant 2 Appointment Radiology Matthew Jerome 2 YTyrell M.D. [address] [place] [phone] Appointment Gastroenterology and [place], 2 Hepatology Yue Burciaga M.D. [address] [place] [phone] Virtual Visit Transplant Matthew Jerome 2 Tyrell Rodriguez, Lilian [address] [place] [phone] Office Visit Gastroenterology and Matthew Jerome 2 Hepatology Tyrell Rodriguez M.D. [address] [place] [phone] Appointment Radiology LuisMatthew abdul 2 Tyrell Rodriguez M.D. [address] [place] [phone] Hospital Gastroenterology and Matthew Jerome Cirrhos is Alcoholic (HCC) 2 Encounter Hepatology Tyrell Rodriguez, Lilian [address] [place] [phone] Anesthesia Event Gastroenterology and Rl, 2 Hepatology Ervin Burgos M.D. [address] [place] [phone] Surgery Gastroenterology and Matthew Jerome ESOPHAG OGASTRODUODENOSCOPY 2 Hepatology Joshua RodriguezBSumaBGraeme, Lilian [address] [place] [phone] Scheduled Procedures Name Priority Associated Diagnoses Date/Time ESOPHAGOGASTRODUODENOSCOPY Cirrhosis Alc oholic (HCC) 03/20/2022 8:45 AM OCTAVE BOARD RACKER Hypertension Portal (HCC) documented as of this encounter Visit Diagnoses Not on filedocumented in this encounter Care Teams Used Car Sales Manager Relationship Specialty Start Date End Date Elsewhere, Pcp PCP - General Family Medicine 11/8/20 7/31/22 Ervin Schroeder MD Referring Provider Family Medicine 03/24/[address] [place] [address] documented as of this encounter
--- OUTSIDE RECORDS SUMMARY | 2022-02-14 22:12 | XMS_ITS | Encounter Summary ---
:1990 Author Organization [facility] Address [address] [place] [address] Care Team Providers Name Role Phone Elsewhere, Pcp Primary Care Provider Unavailable Encounter Details Date Type Department Care Team Description 06/30/2021 Clinical Communication Department of Kerry Naranjo Gastroenterology in [place], [place] C.N.P., M.S.N. 1025 [facility] 1025 [place] [address] [place], [place] [phone] Social History Tobacco Use Types Packs/Day [...] you attend anabaptism or Patient refused 2021 faith services? 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 - 07/01/2021 4:12 PM CST Noted. RITIES AND REAL ESTATE DIRECTOR Telephone Encounter - Ellen Stevens RSumaN. - 07/01/2021 4:11 PM CST Please see message related to when pt is scheduled for FFP pre-EGD. Thanks, Ellen Stevens, RN, OCN RITIES AND REAL ESTATE DIRECTOR Telephone Encounter - Ruth Jeter - 07/01/2021 3:48 PM CST Pt has been scheduled 07/02 @ 1000. Pt is aware. RITIES AND REAL ESTATE DIRECTOR Telephone Encounter - Ellen Stevens R.N. - 07/01/2021 12:47 PM CST Orders are signed, have pt come early to allow time for transfusion and then pt needs to go for EGD. Please place in scheduling comments that PT/INR is ordered in plan and needs to be done post transfusion. See messages below from GI nursing about message replies--if need coordinate appts with their department. Thanks, Ellen Stevens RN, OCN RITIES AND REAL ESTATE DIRECTOR Telephone Encounter - Kerry Naranjo APRN, C.N.P., M.S.N. - 07/01/2021 11:47 AM CST Signed pended orders for transfusion of 2 units FFP with protocol and post transfusion INR RITIES AND REAL ESTATE DIRECTOR Telephone Encounter - Felicita Spicer L.P.N. [...] had no further questions at this time. RITIES AND REAL ESTATE DIRECTOR Telephone Encounter - Kerry Naranjo APRN, C.N.P., [...] the above above arrangements. Thank you, Kerry RITIES AND REAL ESTATE DIRECTOR documented in this encounter Plan of Treatment Upcoming Encounters Date Type Specialty Care Team Description Telemedicine Transplant 2 Appointment Radiology Matthew Jerome 2 Tyrell Rodriguez M.D. [address] [place] [phone] Appointment Gastroenterology and [facility], 2 Hepatology Yue Burciaga M.D. [address] [place] [phone] Virtual Visit Transplant Matthew Jerome 2 Tyrell Rodriguez M.D. [address] [place] [phone] Office Visit Gastroenterology and Matthew Jerome 2 Hepatology Tyrell Rodriguez M.D. [address] [place] [phone] Appointment Radiology Matthew Jerome 2 YTyrell M.D. [address] [place] [phone] Hospital Gastroenterology and [facility] Cirrhos is Alcoholic (HCC) 2 Encounter Hepatology Tyrell Rodriguez M.D. [address] [place] [phone] Anesthesia Event Gastroenterology and Rl, 2 Hepatology Ervin Burgos M.D. [address] [place] [phone] Surgery Gastroenterology and [facility] ESOPHAG OGASTRODUODENOSCOPY 2 Hepatology Tyrell Rodriguez M.D. [address] [place] [phone] Scheduled Procedures Name Priority Associated Diagnoses Date/Time ESOPHAGOGASTRODUODENOSCOPY Cirrhosis Alc oholic (HCC) 03/20/2022 8:45 AM SECURITIES AND REAL ESTATE DIRECTOR Hypertension Portal (HCC) documented as of this encounter Results (ABNORMAL) Prothrombin Time (PT) (07/02/2021 1:22 PM SECURITIES AND REAL ESTATE DIRECTOR) [facility] gist Method Time Signature Prothrombin 24.6 (H) 9.4 - 12.5 07/02/2021 [facility] Time, P sec 1:39 PM SECURITIES AND REAL ESTATE DIRECTOR INR 2.2 0.9 - 1.1 07/02/2021 MKTO 1:39 PM SECURITIES AND REAL ESTATE DIRECTOR Comment: ----ADDITIONAL INFORMATION---- Standard intensity warfarin therapeutic range: 2.0 to 3.0 ?? High intensity warfarin therapeutic rang e: 2.5 to 3.5 Specimen Anatomical Collection Method Collection Time Receive d Time (Source) Location / / Volume Laterality Blood (Blood, 07/02/2021 1:22 PM 07/03/19 1:31 Venous) SECURITIES AND REAL ESTATE DIRECTOR PM SECURITIES AND REAL ESTATE DIRECTOR Kerry Naranjo APRN, C.N.P., M.S.N. LAB BLOOD ADD-ON Performing Organization Address City/State/ZIP Code Phon e Number [facility]- [address] [place] [address] [place] [address] System [address] documented in this encounter Visit Diagnoses Diagnosis Cirrhosis Alcoholic (HCC) - Primary Thrombocytopenia (HCC) Splenomegaly Acquired Hypertension Portal (HCC) Cirrhosis Alcoholic (HCC) Cirrhosis Alcoholic (HCC) Hypertension Portal (HCC) documented in this encounter Additional Health Concerns Infection Onset Date Last Indicated Resolved Time COVID19 Pending 06/30/2021 06/30/2021 06/30/2021 10:43 PM SECURITIES AND REAL ESTATE DIRECTOR documented as of this encounter Care Teams Geology Professor Relationship Specialty Start Date End Date Elsewhere, Pcp PCP - General Family Medicine 03/10/20 11/30/21 Ervin Schroeder MD Referring Provider Family Medicine 03/24/211979 [address], [place] [address] documented as of this encounter
--- OUTSIDE RECORDS SUMMARY | 2022-02-14 22:12 | XMS_ITS | Encounter Summary ---
:1990 Author Organization [facility] Address [address] [place] [address] Care Team Providers Name Role Phone Elsewhere, Pcp Primary Care Provider Unavailable Reason for Visit Auth/Cert Specialty Diagnoses / Procedures Referred By Contact Refer red To Contact Diagnoses Cirrhosis Alcoholic (HCC) Cirrhosis Alcoholic (HCC) [K70.30] Procedures RI EGD TRANSORAL DX ESOPHAGOGASTRODUODENOSCOPY Referral ID Status Reason Start Date Expiration Date Visits Requ ested Visits Authorized [id number] 1 1 Encounter Details Date Type Department Care Team Description 07/02/2021 Hospital Encounter Department of David Fish, Gastroenterology in M.B.[address] [place] [phone] Social History Tobacco Use Types Packs/Day Years [...] you attend mandaen or Patient refused 2021 judaism services? 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 [address] [place] [phone] Appointment Gastroenterology demian Silver, 2 Hepatology Yue Burciaga M.D. [address] [place] [phone] Virtual Visit Transplant LuisMatthew abdul 2 YTyrell M.D. [address] [place] [phone] Office Visit Gastroenterology and Matthew Jerome 2 Hepatology Tyrell Rodriguez M.D. [address] [place] [phone] Appointment Radiology Matthew Jerome 2 YTyrell M.D. [address] [place] [phone] Hospital Gastroenterology and Matthew Jerome Cirrhos is Alcoholic (HCC) 2 Encounter Hepatology Tyrell Rodriguez M.D. [address] [place] [phone] Anesthesia Event Gastroenterology and Rl, 2 Hepatology Ervin Burgos M.D. [address] [place] [phone] Surgery Gastroenterology and Matthew Jerome ESOPHAG OGASTRODUODENOSCOPY 2 Hepatology Tyrell Rodriguez M.D. [address] [place] [phone] Scheduled Procedures Name Priority Associated Diagnoses Date/Time ESOPHAGOGASTRODUODENOSCOPY Cirrhosis Alc oholic (HCC) 03/20/2022 8:45 AM TICKET BROKER Hypertension Portal (HCC) documented as of this encounter Visit Diagnoses Diagnosis Cirrhosis Alcoholic (HCC) - Primary Cirrhosis Alcoholic (HCC) Cirrhosis Alcoholic (HCC) Hypertension Portal (HCC) documented in this encounter Admitting Diagnoses Diagnosis Cirrhosis Alcoholic (HCC) documented in this encounter Care Teams Stone Chimney Mason Relationship Specialty Start Date End Date Elsewhere, Pcp PCP - General Family Medicine 03/10/20 11/30/21 Ervin Schroeder MD Referring Provider Family Medicine 03/24/[address] [place] [address] documented as of this encounter
--- OUTSIDE RECORDS SUMMARY | 2022-02-14 22:12 | XMS_ITS | Encounter Summary ---
:1990 Author Organization [facility] Address [address] [place] [address] Care Team Providers Name Role Phone Elsewhere, Pcp Primary Care Provider Unavailable Encounter Details Date Type Department Care Team Description 07/15/2021 Clinical Communication Department of Felicita Spicer Gastroenterology in E, L.P.N. [place], [place] [phone] [place] [address] ([facility]) [place] [phone] Social History Tobacco Use Types Packs/Day [...] you attend holiness or Patient refused 2021 confucianism services? 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 - 07/15/2021 9:23 AM CDT Spoke [...] ED visits 07/06-07/08 at 3 various locations. Help Desk Intern informed her that we were aware of the labs from outside facilities and that designer writer had asked Kerry to review these outside labs last week and had not heard back regarding any recommendations. Informed her I would follow up with Kerry and get back to her. Help Desk Intern discussed patient with Kerry Naranjo NP. Since patient is reported feeling more tired and weak lately the provider would like to repeat some labs. Provider requests patient has these completed at [facility] so that we are able to seen [...] best that they are done at a [facility] so that Kerry can be alerted [...] shedid not received a blood transfusion at [facility]. Informed her that once the lab results were back Kerry would be able to best make a plan of care for her. Informed her she should keep her appointment with Kerry on Friday 07/21. documented in this encounter Plan of Treatment Upcoming Encounters Date Type Specialty Care Team Description Telemedicine Transplant 2 Appointment Radiology Matthew Jerome 2 Tyrell Rodriguez M.D. [address] [place] [phone] Appointment Gastroenterology and Adrianne, 2 Hepatology Yue Burciaga M.D. [address] [place] [phone] Virtual Visit Transplant Matthew Jerome 2 Tyrell Rodriguez M.D. [address] [place] [phone] Office Visit Gastroenterology and Matthew Jerome 2 Hepatology Tyrell Rodriguez M.D. [address] [place] [phone] Appointment Radiology Matthew Jerome 2 Tyrell Rodriguez M.D. [address] [place] [phone] [facility] Gastroenterology and Mousa, Matthew Cirrhos is Alcoholic (HCC) 2 Encounter Hepatology Tyrell Rodriguez M.D. [address] [place] [phone] Anesthesia Event Gastroenterology and Rl, 2 Hepatology Ervin Burgos M.D. [address] [place] [phone] Surgery Gastroenterology and [facility] ESOPHAG OGASTRODUODENOSCOPY 2 Hepatology Tyrell Rodriguez M.D. [address] [place] [phone] Scheduled Procedures Name Priority Associated Diagnoses Date/Time ESOPHAGOGASTRODUODENOSCOPY Cirrhosis Alc oholic (HCC) 03/20/2022 8:45 AM BREED TO WEAN PRODUCTION TECHNICIAN Hypertension Portal (HCC) documented as of this encounter Results (ABNORMAL) Hepatic Function Panel (07/15/2021 10:49 AM CDT) [facility] gist Method Time Signature Bilirubin, Total, [...] Code Phon e Number [facility] [address] [place] [address] [place] [address] System in [place] [address] Basic Metabolic Panel (07/15/2021 10:49 [...] CDT eGFR-Black/Afric >90 >=60 07/15/2021 [place] an Togolese mL/min/BSA 1:52 PM CDT Comment: ----ADDITIONAL INFORMATION---- [...] Code Phon e Number [facility]- [address] [place] [address] [place] [address] System in [place] [address] [facility] (ABNORMAL) CBC with Differential, Blood (07/15/2021 10:49 AM CDT) [facility] Method Time Signature Hemoglobin 8.2 (L) [...] CDT 10:49 AM CDT Kerry Naranjo APRN C.NLala., M.S.N. LAB BLOOD ADD-ON Performing Organization Address City/State/ZIP Code Phon e Number [place] [address] [place] [address] [facility] [address] [place] [address] System [address] documented in this encounter Visit Diagnoses Diagnosis Cirrhosis Alcoholic (HCC) - Primary Cirrhosis Alcoholic (HCC) Cirrhosis Alcoholic (HCC) Hypertension Portal (HCC) documented in this encounter Additional Health Concerns Infection Onset Date Last Indicated Resolved Time COVID19 Pending 07/25/2021 07/25/2021 07/25/2021 10:07 PM CDT documented as of this encounter Care Teams Laundry Operator Finishing Relationship Specialty Start Date End Date Elsewhere, Pcp PCP - General Family Medicine 03/10/20 11/30/21 Ervin Schroeder MD Referring Provider Family Medicine 03/24/[address] [place] [address] documented as of this encounter
--- OUTSIDE RECORDS SUMMARY | 2022-02-14 22:13 | XMS_ITS | Encounter Summary ---
:1990 Author Organization [facility] Address [address] [place] [address] Care Team Providers Name Role Phone Elsewhere, Pcp Primary Care Provider Unavailable Encounter Details Date Type Department Care Team Description 05/06/2021 Clinical Communication Department of Kerry Naranjo Gastroenterology in [place], [place] C.N.P., M.S.N. [address] [facility] 1025 [place] [address] [place], [place] [phone] Social History Tobacco Use Types Packs/Day [...] you attend holiness or Patient refused 2021 mandaen services? 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 [address] [place] [phone] Appointment Gastroenterology demian Silver, 2 Hepatology Yue Burciaga M.D. [address] [place] [phone] Virtual Visit Transplant Matthew Jerome 2 Tyrell Rodriguez M.D. [address] [place] [phone] Office Visit Gastroenterology and Matthew Jerome 2 Hepatology Tyrell Rodriguez M.D. [address] [place] [phone] Appointment Radiology Matthew Jerome 2 YTyrell M.D. [address] [place] [phone] Hospital Gastroenterology and [facility] [place] Cirrhos is Alcoholic (HCC) 2 Encounter Hepatology Tyrell Rodriguez M.D. [address] [place] [phone] Anesthesia Event Gastroenterology and Rl, 2 Hepatology Ervin Burgos M.D. [address] [place] [phone] Surgery Gastroenterology and [facility] ESOPHAG OGASTRODUODENOSCOPY 2 Hepatology Tyrell Rodriguez M.D. [address] [place] [phone] Scheduled Procedures Name Priority Associated Diagnoses Date/Time ESOPHAGOGASTRODUODENOSCOPY Cirrhosis Alc oholic (HCC) 03/20/2022 8:45 AM MISSILEMAN Hypertension Portal (HCC) documented as of this encounter Visit Diagnoses Not on filedocumented in this encounter Care Teams Logistics Planner Relationship Specialty Start Date End Date Elsewhere, Pcp PCP - General Family Medicine 03/10/20 11/30/21 Ervin Schroeder MD Referring Provider Family Medicine 03/24/[address] [place] [address] documented as of this encounter
--- OUTSIDE RECORDS SUMMARY | 2022-02-14 22:13 | XMS_ITS | Encounter Summary ---
:1990 Author Organization [facility] Address [address] [place] [address] Care Team Providers Name Role Phone Elsewhere, Pcp Primary Care Provider Unavailable Reason for Referral Outpatient (Routine) - Closed Specialty Diagnoses / Referred By Contact Referred To Procedures Contact [facility] Lowell VIGILNDayne, M.S.N. [facility] [place] [address] Referral ID Status Reason Start Date Expiration Date Visits Requ ested Visits Authorized [id number] Closed 04/17/2021 04/17/2022 1 1 GER OF PRODUCT Reason for Visit Outpatient (Routine) - Closed Specialty Diagnoses / Referred By Contact Referred To Procedures Contact Kerry Mosquera [facility] Hepatology Katrin VIGIL.Lidia, M.S.N. [address] [place] [phone] Referral ID Status Reason Start Date Expiration Date Visits Requ ested Visits Authorized [id number] Closed 03/15/2021 03/15/2022 1 1 Encounter Details Date Type Department Care Team Description 04/17/2021 Office Visit Department of Kerry Naranjo Cirrhosis Alc oholic (HCC) (Primary Dx); Gastroenterology in S, CLAM PICKER, Thromboc ytopenia (HCC); [place], [place] C.N.P., Splenomegaly Acquired; [address] [facility] M.S.N. Deficiency Vitamin D; [place] [phone] 1025 [facility] Deficiency Vitamin A; [phone] [place], [place] Hypertension Po rtal (HCC); [phone] Ascites; [phone] Jaundice; (Work) Malnutrition Protein-Calorie Unspecified (HCC) Social [...] attend roman catholic or Patient refused 2021 quaker services? 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 documented as of this encounter Last Filed Vital Signs Vital Sign Reading Time Taken Comments Blood Pressure 100/60 04/17/2021 3:20 PM MANAGER OF PRODUCT Pulse 80 04/17/2021 3:20 PM MANAGER OF PRODUCT Temperature - - Respiratory Rate - - Oxygen Saturation - - Inhaled Oxygen Concentration - - Weight 50.3 kg (110 lb 14.3 oz) 04/17/2021 3:20 PM MANAGER OF PRODUCT Height 157.5 cm (5' 2.01) 04/17/2021 3:20 PM MANAGER OF PRODUCT Body Mass Index 20.28 04/17/2021 3:20 PM MANAGER OF PRODUCT documented in this encounter Patient Instructions Patient [...] red or purple colored beverages, Jell-O, popsicles *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 - 04/17/2021 3:30 PM CST Kerry Naranjo APRN, C.N.P., M.S.N. [address] [place] [address] Patient Name: Catia Carias Date of : [...] primary care provider Dr. Ervin Schroeder, from [facility] in [facility]; phone [phone], . She stateshe prescribed vitamin-D for GERD [...] She also was instructed to contact her [facility] to sign BIANKA as unable to see [...] Naranjo APRN, Katrin.N.Shanita., M.S.N. Gastroenterology and Hepatology [facility] GER OF PRODUCT documented in this encounter Plan of Treatment Upcoming Encounters Date Type Specialty Care Team Description Telemedicine Transplant 2 Appointment Radiology Matthew Jerome 2 YTyrell M.D. [address] [place] [phone] Appointment Gastroenterology and Adrianne, 2 Hepatology Yue Burciaga M.D. [address] [place] [phone] Virtual Visit Transplant LuisMatthew abdul 2 Vik RodriguezBLilian Bedolla [address] [place] [phone] Office Visit Gastroenterology and Matthew Jerome 2 Hepatology Joshua RodriguezBSumaBLilian Bedolla [address] [place] [phone] Appointment Radiology Matthew Jerome 2 Joshua RodriguezB.BLilian Bedolla [address] [place] [phone] Hospital Gastroenterology and Matthew Jerome Cirrhos is Alcoholic (HCC) 2 Encounter Hepatology Joshua RodriguezB.BLilian Bedolla [address] [place] [phone] Anesthesia Event Gastroenterology and Rl, 2 Hepatology Ervin Burgos M.D. [address] [place] [phone] Surgery Gastroenterology and Matthew Jerome ESOPHAG OGASTRODUODENOSCOPY 2 Hepatology Joshua RodriguezB.B.Lilian [place] [address] [place] [phone] Scheduled Procedures Name Priority Associated Diagnoses Date/Time ESOPHAGOGASTRODUODENOSCOPY Cirrhosis Alc oholic (HCC) 03/20/2022 8:45 AM MANAGER OF PRODUCT Hypertension Portal (HCC) Scheduled Referrals Name Type [...] (HCC) documented in this encounter Care Teams Profile Grinder Relationship Specialty Start Date End Date Elsewhere, Pcp PCP - General Family Medicine 03/10/20 11/30/21 Ervin Schroeder MD Referring Provider Family Medicine 03/24/[address] [place] [address] documented as of this encounter
--- OUTSIDE RECORDS SUMMARY | 2022-02-14 22:13 | XMS_ITS | Encounter Summary ---
:1990 Author Organization [facility] Address [address] [place] [address] Care Team Providers Name Role Phone Elsewhere, Pcp Primary Care Provider Unavailable Encounter Details Date Type Department Care Team Description 06/26/2021 Orders Only Department of [place], Cirrhosis Alco holic Gastroenterology in [facility], ([facility]) (P rimary Dx) [place], [place] P.Jim, M.S. [address] [facility] 1025 [place] [address] [place], [place] [phone] Social History Tobacco Use Types Packs/Day [...] you attend christianity or Patient refused 2021 bahai services? 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 [address] [place] [phone] Virtual Visit Transplant Matthew Jerome 2 Tyrell Rodriguez M.D. [address] [place] [phone] Office Visit Gastroenterology and Matthew Jerome 2 Hepatology Tyrell Rodriguez M.D. [address] [place] [phone] Appointment Radiology [facility] 2 Tyrell Rodriguez M.D. [address] [place] [phone] Hospital Gastroenterology and [facility] Cirrhos is Alcoholic (HCC) 2 Encounter Hepatology Tyrell Rodriguez M.D. [address] [place] [phone] Anesthesia Event Gastroenterology and Rl, 2 Hepatology Ervin Burgos M.D. [address] [place] [phone] Surgery Gastroenterology and [facility] ESOPHAG OGASTRODUODENOSCOPY 2 Hepatology Tyrell Rodriguez M.D. [address] [place] [phone] Scheduled Procedures Name Priority Associated Diagnoses Date/Time ESOPHAGOGASTRODUODENOSCOPY Cirrhosis Alc oholic (HCC) 03/20/2022 8:45 AM UTILIZATION REVIEW COORDINATOR Hypertension Portal (HCC) documented as of this encounter Results (ABNORMAL) Prothrombin Time (PT) (06/30/2021 2:27 PM UTILIZATION REVIEW COORDINATOR) [facility] Method Time Signature Prothrombin 26.7 (H) 9.4 - 12.5 06/30/2021 MKTO Time, P sec 3:02 PM UTILIZATION REVIEW COORDINATOR INR 2.3 0.9 - 1.1 06/30/2021 MKTO 3:02 PM UTILIZATION REVIEW COORDINATOR Comment: ----ADDITIONAL INFORMATION---- Standard intensity warfarin therapeutic range: 2.0 to 3.0 ?? High intensity warfarin therapeutic rang e: 2.5 to 3.5 Specimen Anatomical Collection Method Collection Time Receive d Time (Source) Location / / Volume Laterality Blood (Blood, 06/30/2021 2:27 PM 06/30/19 2:46 Venous) UTILIZATION REVIEW COORDINATOR PM UTILIZATION REVIEW COORDINATOR Magaly Molina P.A.-C. M.S. LAB BLOOD ADD-ON Performing Organization Address City/State/ZIP Code Phon e Number [facility]- [address] [place] [phone] [place] [address] [place] [address] System in [place] 1025 [facility] documented in this encounter Visit Diagnoses Diagnosis Cirrhosis Alcoholic (HCC) - Primary Cirrhosis Alcoholic (HCC) Cirrhosis Alcoholic (HCC) Hypertension Portal (HCC) documented in this encounter Care Teams Bottom Brusher Relationship Specialty Start Date End Date Elsewhere, Pcp PCP - General Family Medicine 03/10/20 11/30/21 Ervin Schroeder MD Referring Provider Family Medicine 03/24/[address] [place] [address] documented as of this encounter
--- OUTSIDE RECORDS SUMMARY | 2022-02-14 22:13 | XMS_ITS | Encounter Summary ---
:1990 Author Organization [facility] Address [address] [place] [address] Care Team Providers Name Role Phone Elsewhere, Pcp Primary Care Provider Unavailable Encounter Details Date Type Department Care Team Description 06/30/2021 Lab Department of Kerry Gee Enc ounter For Screening Medicine in [facility], C.N.P., For Ot her Viral Diseases [facility] 1025 [facility] 1025 [place] [address] [place], [place] [phone] (Wo rk) Social History Tobacco Use [...] you attend hindu or Patient refused 2021 protestant services? 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 [address] [place] [phone] Virtual Visit Transplant LuischantellMatthew 2 YTyrell M.D. [address] [place] [phone] Office Visit Gastroenterology and Luischantell Matthew 2 Hepatology Tyrell Rodriguez M.D. [address] [place] [phone] Appointment Radiology [facility] 2 Tyrell Rodriguez M.D. [address] [place] [phone] Hospital Gastroenterology and [facility] Cirrhos is Alcoholic (HCC) 2 Encounter Hepatology Tyrell Rodriguez M.D. [address] [place] [phone] Anesthesia Event Gastroenterology and Rl, 2 Hepatology Ervin Burgos M.D. [address] [place] [phone] Surgery Gastroenterology and [facility] ESOPHAG OGASTRODUODENOSCOPY 2 Hepatology Tyrell Rodriguez M.D. [address] [place] [phone] Scheduled Procedures Name Priority Associated Diagnoses Date/Time ESOPHAGOGASTRODUODENOSCOPY Cirrhosis Alc oholic (HCC) 03/20/2022 8:45 AM APPLICATION SOFTWARE DEVELOPER Hypertension Portal (HCC) documented as of this encounter Procedures Procedure Name Priority Date/Time Associated Diagnosis Comme nts SARS CORONAVIRUS-2 Routine 06/30/2021 2:34 PM Encounter For Re sults for this RNA, V APPLICATION SOFTWARE DEVELOPER Screening For Other procedur e are in Viral Diseases the results (COVID-19) section. documented in this encounter Results SARS Coronavirus-2 RNA, V Asymptomatic (06/30/2021 2:34 PM APPLICATION SOFTWARE DEVELOPER) [facility] Method Time Signature SARS-CoV-2 Swab, 06/30/2021 MKTO Specimen Nasopharynx 10:42 PM Source APPLICATION SOFTWARE DEVELOPER SARS CoV-2 Undetected Undetected 06/30/2021 MKTO RNA, TMA 10:42 PM APPLICATION SOFTWARE DEVELOPER Comment: SARS-CoV-2 RNA absent. This result does not rule out COVID-19 in the patient, as the sensitivity of the test depends o n the timing of the specimen collection and the quality of the specim en. Result should be correlated with patient's history and clinical presentat ion. ----ADDITIONAL INFORMATION---- This molecular amplification test was pe rformed using the Aptima SARS-CoV-2 assay ([employer] on the Fullscreens tem under emergency use authorization (EUA) by the U.S. Food and Drug Administ ration. Fact sheets for this EUA assay can be fo und at the following links: For Healthcare Providers: https://www.M[employer]orMob a.gov/media/190070/download For Patients: https://www.fda.gov/media/ 662940/download Specimen Anatomical Collection Method Collection Time Receive d Time (Source) Location / / Volume Laterality Varies 06/30/2021 2:34 PM 5:12 (Nasopharynx) APPLICATION SOFTWARE DEVELOPER PM APPLICATION SOFTWARE DEVELOPER Katrin Newsome APRN.N.Shanita., M.S.N. LAB MICROBIOLOGY - GENERAL ORDERABLES Performing Organization Address City/State/ZIP [facility] Phon e Number [facility]- [address] [place] [address] [place] [address] System [address] documented in this encounter Visit Diagnoses Diagnosis Encounter For Screening For Other Viral Diseases (COVID-19) Cirrhosis Alcoholic (HCC) Cirrhosis Alcoholic (HCC) Hypertension Portal (HCC) documented in this encounter Additional Health Concerns Infection Onset Date Last Indicated Resolved Time COVID19 Pending 06/30/2021 06/30/2021 06/30/2021 10:43 PM APPLICATION SOFTWARE DEVELOPER documented as of this encounter Care Teams Male Impersonator Relationship Specialty Start Date End Date Elsewhere, Pcp PCP - General Family Medicine 03/10/20 11/30/21 Ervin Schroeder MD Referring Provider Family Medicine 03/24/[address] [place] [address] documented as of this encounter
--- OUTSIDE RECORDS SUMMARY | 2022-02-14 22:13 | XMS_ITS | Encounter Summary ---
:1990 Author Organization [facility] Address [address] [place] [address] Care Team Providers Name Role Phone Elsewhere, Pcp Primary Care Provider Unavailable Encounter Details Date Type Department Care Team Description 06/26/2021 Clinical Communication Department of [facility] in [place], [place] PAshish, M.S. [address] [facility] 1025 [place] [address] [place], [place] [phone] Social History Tobacco Use Types Packs/Day [...] you attend christian or Patient refused 2021 scientologist services? 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 - 06/26/2021 3:16 PM BAGGAGE AGENT SUPERVISOR Could you put in an INR check for this patient? She will be having her EGD rescheduled per Dr. Paul.Last INR was 2.7 and has not been rechecked recently. If she has the procedure done in our soonest opening, she will need to have the INR drawn tomorrow (06-27-21) or Wednesday (06-30-21). Thank you for your help. Paty AGE AGENT SUPERVISOR documented in this encounter Plan of Treatment Upcoming Encounters Date Type Specialty Care Team Description Telemedicine Transplant 2 Appointment Radiology Matthew Jerome 2 YTyrell M.D. 1025 [place] [phone] Appointment Gastroenterology and Adrianne, 2 Hepatology Yue Burciaga M.D. [address] [place] [phone] Virtual Visit Transplant Matthew Jerome 2 YTyrell M.D. [address] [place] [phone] Office Visit Gastroenterology and Matthew Jerome 2 Hepatology Tyrell Rodriguez M.D. [address] [place] [phone] Appointment Radiology LuisMatthew abdul 2 Tyrell Rodriguez M.D. [address] [place] [phone] Hospital Gastroenterology and Matthew Jerome Cirrhos is Alcoholic (HCC) 2 Encounter Hepatology Joshua RodriguezBLilian Staples [address] [place] [phone] Anesthesia Event Gastroenterology and Rl, 2 Hepatology Ervin Burgos M.D. [address] [place] [phone] Surgery Gastroenterology and Matthew Jerome ESOPHAG OGASTRODUODENOSCOPY 2 Hepatology Joshua RodriguezB.BLilian Bedolla [address] [place] [phone] Scheduled Procedures Name Priority Associated Diagnoses Date/Time ESOPHAGOGASTRODUODENOSCOPY Cirrhosis Alc oholic (HCC) 03/20/2022 8:45 AM BAGGAGE AGENT SUPERVISOR Hypertension Portal (HCC) documented as of this encounter Visit Diagnoses Not on filedocumented in this encounter Care Teams Back Shoe Cutter Relationship Specialty Start Date End Date Elsewhere, Pcp PCP - General Family Medicine 03/10/20 11/30/21 Ervin Schroeder MD Referring Provider Family Medicine 03/24/[address] [place] [phone] documented as of this encounter
--- OUTSIDE RECORDS SUMMARY | 2022-02-14 22:13 | XMS_ITS | Encounter Summary ---
:1990 Author Organization [facility] Address [address] [place] [address] Care Team Providers Name Role Phone Elsewhere, Pcp Primary Care Provider Unavailable Encounter Details Date Type Department Care Team Description 04/29/2021 Clinical Communication Department of Kerry [facility] in [place], [place] C.N.P., M.S.N. 1025 [facility] 1025 [place] [address] [place], [place] [phone] Social History Tobacco Use Types Packs/Day [...] you attend shinto or Patient refused 2021 evangelical services? Do [...] Date Recorded Female 04/12/2021 7:39 PM EDGE INKER UPPERS documented as of this encounter Miscellaneous Notes Telephone Encounter - Ines Warren R.N. - 04/29/2021 4:07 PM CST Notified patient of recommendations. Patient was very appreciative of the information. INKER UPPERS Telephone Encounter - Kerry Naranjo APRN, C.NDayne, M.S.N. - 04/29/2021 4:03 PM CST Reviewed gabapentin in relation to hepatic/liver disease there are no adjustments needed (per [employer]). It is ok for her to take. Kerry Naranjo APRN, C.N.Frances, M.S.N. INKER UPPERS Telephone Encounter - Ines Warren R.N. - [...] to taking gabapentin from a GI standpoint? INKER UPPERS Telephone Encounter - Elizabet Corrales Dayan - 04/29/2021 2:41 PM CST Patient is requesting a call back in regards to her Gabapentin from Kerry Naranjo. Ok to leave a message. INKER UPPERS documented in this encounter Plan of Treatment Upcoming Encounters Date Type Specialty Care Team Description Telemedicine Transplant 2 Appointment Radiology Matthew Jerome 2 Tyrell Rodriguez M.D. [address] [place] [phone] Appointment Gastroenterology demian Silver, 2 Hepatology Yue Burciaga M.D. [address] [place] [phone] Virtual Visit Transplant Matthew Jerome 2 Tyrell Rodriguez M.D. [address] [place] [phone] Office Visit Gastroenterology and Matthew Jerome 2 Hepatology Vik RodriguezBLilian Bedolla [address] [place] [phone] Appointment Radiology Matthew Jerome 2, M.B.B.S., M.D. [address] [place] [phone] Hospital Gastroenterology and Matthew Jerome Cirrhos is Alcoholic (HCC) 2 Encounter Hepatology Y, M.B.B.S., Lilian [address] [place] [phone] Anesthesia Event Gastroenterology and Rl, 2 Hepatology Ervin Burgos M.D. [address] [place] [phone] Surgery Gastroenterology and Mousa, Matthew ESOPHAG OGASTRODUODENOSCOPY 2 Hepatology Tyrell Rodirguez, Lilian [address] [place] [phone] Scheduled Procedures Name Priority Associated Diagnoses Date/Time ESOPHAGOGASTRODUODENOSCOPY Cirrhosis Alc oholic (HCC) 03/20/2022 8:45 AM EDGE INKER UPPERS Hypertension Portal (HCC) documented as of this encounter Visit Diagnoses Not on filedocumented in this encounter Care Teams Skip Pit Worker Relationship Specialty Start Date End Date Elsewhere, Pcp PCP - General Family Medicine 03/10/20 11/30/21 Ervin Schroeder MD Referring Provider Family Medicine 03/24/[address] [place] [address] documented as of this encounter
--- OUTSIDE RECORDS SUMMARY | 2022-02-14 22:13 | XMS_ITS | Encounter Summary ---
:1990 Author Organization [facility] Address [address] [place] [address] Care Team Providers Name Role Phone Elsewhere, Pcp Primary Care Provider Unavailable Encounter Details Date Type Department Care Team Description 06/24/2021 Lab Department of [facility] Sera Morgan, En counter For Medicine in [place], P.A.-C. Preprocedural Laboratory [address] Examination (COVID-19) 1025 [place] [address] [place] [address] [phone] Social History Tobacco Use Types Packs/Day Years [...] you attend shinto or Patient refused 2021 buddhist services? Do [...] at Date Recorded Female 04/12/2021 7:39 PM HEAT WELDER PLASTICS documented as of this encounter Plan of Treatment Upcoming Encounters Date Type Specialty Care Team Description Telemedicine Transplant 2 Appointment Radiology Matthew Jerome 2 YVikBGraeme, Lilian [address] [place] [phone] Appointment Gastroenterology and Adrianne, 2 Hepatology Yue Burciaga M.D. [address] [place] [phone] Virtual Visit Transplant Matthew Jerome 2 YJoshuaBSumaBLilian Bedolla [address] [place] [phone] Office Visit Gastroenterology Matthew Ramirez 2 Hepatology Vik RodriguezBLilian Bedolla [address] [place] [phone] Appointment Radiology [facility] 2 Tyrell Rodriguez M.D. [address] [place] [phone] Hospital Gastroenterology and [facility] Cirrhos is Alcoholic (HCC) 2 Encounter Hepatology Tyrell Rodriguez M.D. [address] [place] [phone] Anesthesia Event Gastroenterology and [facility], 2 Hepatology Ervin Burgos M.D. [address] [place] [phone] Surgery Gastroenterology and [facility] ESOPHAG OGASTRODUODENOSCOPY 2 Hepatology Tyrell Rodriguez M.D. [address] [place] [address] [phone] Scheduled Procedures Name Priority Associated Diagnoses Date/Time ESOPHAGOGASTRODUODENOSCOPY Cirrhosis Alc oholic (HCC) 03/20/2022 8:45 AM HEAT WELDER PLASTICS Hypertension Portal (HCC) documented as of this encounter Procedures Procedure Name Priority Date/Time Associated Diagnosis Comme nts SARS CORONAVIRUS-2 Routine 06/24/2021 3:50 PM Encounter For Re sults for this RNA, V HEAT WELDER PLASTICS Preprocedural procedure are in Laboratory Examination the r esults (COVID-19) section. documented in this encounter Results SARS Coronavirus-2 RNA, V Asymptomatic (06/24/2021 3:50 PM HEAT WELDER PLASTICS) [facility] Method Time Signature SARS-CoV-2 Swab, 06/24/2021 MKTO Specimen Nasopharynx 10:05 PM Source HEAT WELDER PLASTICS SARS CoV-2 Undetected Undetected 06/24/2021 MKTO RNA, TMA 10:05 PM HEAT WELDER PLAST[employer] Comment: SARS-CoV-2 RNA absent. This result does not rule out COVID-19 in the patient, as the sensitivity of the test depends o n the timing of the specimen collection and the quality of the specim en. Result should be correlated with patient's history and clinical presentat ion. ----ADDITIONAL INFORMATION---- This molecular amplification test was pe rformed using the Aptima SARS-CoV-2 assay ([employer] on the ACTV8mes tem under emergency use authorization (EUA) by the U.S. Food and Drug Administ ration. Fact sheets for this EUA assay can be fo und at the following links: For Healthcare Providers: https://www.[place] a.gov/media/083911/download For Patients: https://www.fda.gov/media/ 270026/download Specimen Anatomical Collection Method Collection Time Receive d Time (Source) Location / / Volume Laterality Varies 06/24/2021 3:50 PM 5:05 (Nasopharynx) HEAT WELDER PLAST[employer] PM HEAT WELDER [employer] Sera Morgan P.A.-C. LAB MICROBIOLOGY - GENERAL O RDERABLES Performing Organization Address City/State/ZIP Code Phon e Number [facility]- [address] [place] [address] [place] [address] [address] documented in this encounter Visit Diagnoses Diagnosis Encounter For Preprocedural Laboratory E xamination (COVID-19) Cirrhosis Alcoholic (HCC) Cirrhosis Alcoholic (HCC) Hypertension Portal (HCC) documented in this encounter Care Teams Dye Padder Operator Relationship Specialty Start Date End Date Elsewhere, Pcp PCP - General Family Medicine 03/10/20 11/30/21 Ervin Schroeder MD Referring Provider Family Medicine 03/24/21[address] [facility] [place] [address] documented as of this encounter
--- OUTSIDE RECORDS SUMMARY | 2022-02-14 22:13 | XMS_ITS | Encounter Summary ---
:1990 Author Organization [facility] Address [address] [place] [address] Care Team Providers Name Role Phone Elsewhere, Pcp Primary Care Provider Unavailable Encounter Details Date Type Department Care Team Description 04/18/2021 Clinical Communication Department of Kerry [facility] in [place], [place] C.N.P., M.S.N. 1025 [facility] 1025 [place] [address] [place], [place] [phone] Social History Tobacco Use Types Packs/Day [...] you attend uatsdin or Patient refused 2021 oriental orthodox services? [...] at Date Recorded Female 04/12/2021 7:39 PM ROVING SIZER documented as of this encounter Miscellaneous Notes [...] to ask her primary care provider in [place] if he is able to do the laboratory and ultrasound as described below to do at the end of July the beginning of August so the patient does not have to travel so much. She should not be driving, and she should get her primary care provider to send her to [facility] for an assessment for safe driving. Thank [...] She also was instructed to contact her [facility] to sign BIANKA as unable to see her laboratory records in Care everywhere. -EGD/MAC. MAC sedation as screening for varices with possible banding -GI follow-up one week after EGD NG SIZER documented in this encounter Plan of Treatment Upcoming Encounters Date Type Specialty Care Team Description Telemedicine Transplant 2 Appointment Radiology Matthew Jerome 2 YTyrell M.D. [address] [place] [phone] Appointment Gastroenterology and Adrianne, 2 Hepatology Yue Burciaga M.D. [address] [place] [phone] Virtual Visit Transplant Matthew Jerome 2 YTyrell M.D. [address] [place] [phone] Office Visit Gastroenterology and Matthew Jerome 2 Hepatology Tyrell Rodriguez, Lilian [address] [place] [phone] Appointment Radiology Matthew Jerome 2 YTyrell M.D. [address] [place] [phone] Hospital Gastroenterology and Queenie Matthew Cirrhos is Alcoholic (HCC) 2 Encounter Hepatology Tyrell Rodriguez, Lilian [address] [place] [phone] Anesthesia Event Gastroenterology and Rl, 2 Hepatology Ervin Burgos M.D. [address] [place] [phone] Surgery Gastroenterology and Queenie Matthew ESOPHAG OGASTRODUODENOSCOPY 2 Hepatology Tyrell Rodriguez, Lilian [address] [place] [phone] Scheduled Procedures Name Priority Associated Diagnoses Date/Time ESOPHAGOGASTRODUODENOSCOPY Cirrhosis Alc oholic (HCC) 03/20/2022 8:45 AM ROVING SIZER Hypertension Portal (HCC) documented as of this encounter Visit Diagnoses Not on filedocumented in this encounter Care Teams Gunsmith Apprentice Relationship Specialty Start Date End Date Elsewhere, Pcp PCP - General Family Medicine 03/10/20 11/30/21 Ervin Schroeder MD Referring Provider Family Medicine 03/24/[address] [place] [phone] documented as of this encounter
--- OUTSIDE RECORDS SUMMARY | 2022-02-14 22:13 | XMS_ITS | Encounter Summary ---
:1990 Author Organization [facility] Address [address] [place] [address] Care Team Providers Name Role Phone Elsewhere, Pcp Primary Care Provider Unavailable Encounter Details Date Type Department Care Team Description 05/23/2021 Clinical Communication Department of Felicita Spicer [facility] in [place], [place] [phone] 1025 [facility] [place] [address] Social History Tobacco Use Types Packs/Day [...] you attend hinduism or Patient refused 2021 spiritism services? Do [...] Date Recorded Female 04/12/2021 7:39 PM CONSULTING ACTUARY documented as of this encounter Miscellaneous Notes [...] she should avoid all ibuprofen and tylenol. Sole Buffer did inform her that often withliver disease the recommendations are to avoid all NSAIDs but that tylenol can be used in moderationas needed. She states she was just wondering as lots of the cold medications do contain tylenol and she just wanted to be sure it was okay for her to take before using any of the OTC cold medications. She also asked race and sports book writer to pass along to Kerry as [...] She wonders if this could have contributed. Sole Buffer informed patient I would get all her questions to the provider and update her with her response regarding the cold medication. She had no further questions at this time. ULTING ACTUARY documented in this encounter Plan of Treatment Upcoming Encounters Date Type Specialty Care Team Description Telemedicine Transplant 2 Appointment Radiology LuisNew abdular 2 YTyrell M.D. [address] [place] [phone] Appointment Gastroenterology demian Silver 2 Hepatology Yue Burciaga M.D. [address] [place] [phone] Virtual Visit Transplant LuisNew abdular 2 YTyrell M.D. [address] [place] [phone] Office Visit Gastroenterology and Matthew Jerome 2 Hepatology Tyrell Rodriguez M.D. [address] [place] [phone] Appointment Radiology Matthew Jerome 2 YTyrell M.D. [address] [place] [phone] Hospital Gastroenterology and LuisMatthew abdul Cirrhos is Alcoholic (HCC) 2 Encounter Hepatology Tyrell Rodriguez M.D. [address] [place] [phone] Anesthesia Event Gastroenterology and Rl, 2 Hepatology Ervin Burgos M.D. [address] [place] [phone] Surgery Gastroenterology and LuischantellMatthew ESOPHAG OGASTRODUODENOSCOPY 2 Hepatology Tyrell Rodriguez M.D. 1025 [place] [phone] Scheduled Procedures Name Priority Associated Diagnoses Date/Time ESOPHAGOGASTRODUODENOSCOPY Cirrhosis Alc oholic (HCC) 03/20/2022 8:45 AM CONSULTING ACTUARY Hypertension Portal (HCC) documented as of this encounter Visit Diagnoses Not on filedocumented in this encounter Care Teams Reliability Manager Relationship Specialty Start Date End Date Elsewhere, Pcp PCP - General Family Medicine 03/10/20 11/30/21 Ervin Schroeder MD Referring Provider Family Medicine 03/24/211979 [address] [place] [address] documented as of this encounter
--- OUTSIDE RECORDS SUMMARY | 2022-02-14 22:15 | XMS_ITS | Encounter Summary ---
:1990 Author Organization [facility] Address [address] [place] [address] Care Team Providers Name Role Phone Elsewhere, Pcp Primary Care Provider Unavailable Reason for Visit Reason Comments Communication Encounter Details Date Type Department Care Team Description 07/12/2020 Clinical Communication Department of Family [facility], Pcp Communication Medicine, [facility], in [place], [place] [address], [place] [phone] Social History Tobacco Use Types Packs/Day Years [...] you attend holiness or Patient refused 2021 amish services? Do [...] at Date Recorded Female 04/12/2021 7:39 PM USER SUPPORT ANALYST SUPERVISOR documented as of this encounter Miscellaneous [...] or daycare Select appropriate regional recommendations: : [place]- COVID only testing recommended (End Screening) Plan: Endpoint recommendation: Testing indicated, advised to be swabbed for COVID-19 Only , sent to [place] located at [address] [place] [address]. The entrance is on the north side of the building. You must call [phone] during the hours of 7am to 6 [...] sending patient for testing in [facility] or [facility], route encounter to the correct testing pool. SUPPORT ANALYST SUPERVISOR documented in this encounter Plan of Treatment Upcoming Encounters Date Type Specialty Care Team Description Telemedicine Transplant 2 Appointment Radiology Matthew Jerome 2 YTyrell M.D. [address] [place] [phone] Appointment Gastroenterology demian Silver 2 Hepatology Yue Burciaga M.D. [address] [place] [phone] Virtual Visit Transplant Matthew Jerome 2 YTyrell M.D. [address] [place] [address] [phone] Office Visit Gastroenterology and Matthew Jerome 2 Hepatology Tyrell Rodriguez M.D. [address] [place] [address] [phone] Appointment Radiology Matthew Jerome 2 YVikBLilian Bedolla [address] [place] [address] [phone] Hospital Gastroenterology and Matthew Jerome Cirrhos is Alcoholic (HCC) 2 Encounter Hepatology Tyrell Rodriguez M.D. [address] [place] [address] [phone] Anesthesia Event Gastroenterology demian Shine, 2 Hepatology Ervin Burgos M.D. 1025 [place] [phone] Surgery Gastroenterology and Mousa, Matthwe ESOPHAG OGASTRODUODENOSCOPY 2 Hepatology YTyrell M.D. [address] [place] [phone] Scheduled Procedures Name Priority Associated Diagnoses Date/Time ESOPHAGOGASTRODUODENOSCOPY Cirrhosis Alc oholic (HCC) 03/20/2022 8:45 AM USER SUPPORT ANALYST SUPERVISOR Hypertension Portal (HCC) documented as of this encounter Visit Diagnoses Not on filedocumented in this encounter Care Teams Online User Experience Strategist Relationship Specialty Start Date End Date Elsewhere, Pcp PCP - General Family Medicine 03/10/20 11/30/21 documented as of this encounter
--- OUTSIDE RECORDS SUMMARY | 2022-02-14 22:15 | XMS_ITS | Encounter Summary ---
:1990 Author Organization [facility] Address [address] [place] [address] Care Team Providers Name Role Phone Elsewhere, Pcp Primary Care Provider Unavailable Reason for Visit Reason Onset Date Comments Outpatient COVID-19 Testing 07/21/2020 Encounter Details Date Type Department Care Team Description 07/21/2020 External Outreach Department of Pedro Evans And Internal Medicine in [place], [place] (Suspected) Exposure [place], [place] [facility] To COVID-19 (Primary [address]199 [place], [place]x) [place] [phone] Social History Tobacco Use Types Packs/Day Years [...] you attend shinto or Patient refused 2021 taoism services? Do [...] Date Recorded Female 04/12/2021 7:39 PM MANAGER ONCOLOGY documented as of this encounter Progress Notes [...] Appointment Radiology Matthew Jerome 2, M.B.B.S., M.D. [address] [place] [phone] Appointment Gastroenterology and Adrianne, 2 Hepatology Yue Burciaga M.D. [address] [place] [phone] Virtual Visit Transplant Matthew Jerome 2 Tyrell Rodriguez M.D. [address] [place] [phone] Office Visit Gastroenterology and Matthew Jerome 2 Hepatology Tyrell Rodriguez M.D. [address] [place] [phone] Appointment Radiology LuisMatthew abdul 2 Tyrell Rodriguez M.D. [address] [place] [phone] Hospital Gastroenterology and Matthew Jerome Cirrhos is Alcoholic (HCC) 2 Encounter Hepatology Tyrell Rodriguez M.D. [address] [place] [phone] Anesthesia Event Gastroenterology and lR, 2 Hepatology Ervin Burgos M.D. [address] [place] [phone] Surgery Gastroenterology and Matthew Jerome ESOPHAG OGASTRODUODENOSCOPY 2 Hepatology Vik RodriguezBGraeme, Lilian [address] [place] [phone] Scheduled Procedures Name Priority Associated Diagnoses Date/Time ESOPHAGOGASTRODUODENOSCOPY Cirrhosis Alc oholic (HCC) 03/20/2022 8:45 AM MANAGER ONCOLOGY Hypertension Portal (HCC) documented as of this encounter Visit Diagnoses Diagnosis Contact With And (Suspected) Exposure To COVID-19 - Primary Cirrhosis Alcoholic (HCC) Cirrhosis Alcoholic (HCC) Hypertension Portal (HCC) documented in this encounter Additional Health Concerns Infection Onset Date Last Indicated Resolved Time COVID19 Pending 07/21/2020 07/21/2020 07/22/2020 12:06 PM CDT documented as of this encounter Care Teams Kiln Packer Relationship Specialty Start Date End Date Elsewhere, Pcp PCP - General Family Medicine 03/10/20 11/30/21 documented as of this encounter
--- OUTSIDE RECORDS SUMMARY | 2022-02-14 22:15 | XMS_ITS | Encounter Summary ---
:1990 Author Organization [facility] Address [address] [place] [address] Care Team Providers Name Role Phone Elsewhere, Pcp Primary Care Provider Unavailable Encounter Details Date Type Department Care Team Description 03/10/2020 Admin Visit Department of Family Medicine, [address] [address] [facility] [phone] Social History Tobacco Use Types Packs/Day Years [...] you attend anabaptist or Patient refused 2021 hindu services? 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 [address] [place] [address] [phone] Appointment Gastroenterology and Adrianne, 2 Hepatology Yue Burciaga M.D. [address] [place] [phone] Virtual Visit Transplant Matthew Jerome 2 Tyrell Rodriguez, Lilian [address] [place] [address] [phone] Office Visit Gastroenterology and Matthew Jerome 2 Hepatology Tyrell Rodriguez M.D. [address] [place] [address] [phone] Appointment Radiology Matthew Jerome 2, M.B.B.S., M.D. [address] [place] [phone] Hospital Gastroenterology and Matthew Jerome Cirrhos is Alcoholic (HCC) 2 Encounter Hepatology YTyrell M.D. [address] [place] [address] [phone] Anesthesia Event Gastroenterology and Rl, 2 Hepatology Ervin Burgos M.D. [address] [place] [address] [phone] Surgery Gastroenterology and Mousa, Matthew ESOPHAG OGASTRODUODENOSCOPY 2 Hepatology Tyrell Rodriguez M.D. [address] [place] [address] [phone] Scheduled Procedures Name Priority Associated Diagnoses Date/Time ESOPHAGOGASTRODUODENOSCOPY Cirrhosis Alc oholic (HCC) 03/20/2022 8:45 AM AGRICULTURE SCIENCE TEACHER Hypertension Portal (HCC) documented as of this encounter Visit Diagnoses Not on filedocumented in this encounter Additional Health Concerns Infection Onset Date Last Indicated Resolved Time COVID19 Pending 03/10/2020 03/10/2020 03/11/2020 12:40 PM AGRICULTURE SCIENCE TEACHER documented as of this encounter Care Teams Lift Slab Operator Relationship Specialty Start Date End Date Elsewhere, Pcp PCP - General Family Medicine 03/10/20 11/30/21 documented as of this encounter
--- OUTSIDE RECORDS SUMMARY | 2022-02-14 22:15 | XMS_ITS | Encounter Summary ---
:1990 Author Organization [facility] Address [address] [place] [address] Care Team Providers Name Role Phone Elsewhere, Pcp Primary Care Provider Unavailable Reason for Referral Outpatient (Routine) - Closed Specialty Diagnoses / Referred By Contact Referred To Procedures [facility] Katrin VIGIL.NDayne, M.S.N. [address] [place] [phone] Referral ID Status Reason Start Date Expiration Date Visits Requ ested Visits Authorized [id number] Closed 03/15/2021 03/15/2022 1 1 ATRIC NEUROLOGIST Reason for Visit Auth/Cert Specialty Diagnoses / Procedures Referred By Contact Refer red To Contact Diagnoses Change Mental Status Liver failure Procedures Referral ID Status Reason Start Date Expiration Date Visits Requ ested Visits Authorized [id number] 1 1 Encounter Details Date Type Department Care Team Description 03/12/2021 - Hospital Encounter [facility] Antwan Lazo, JeriO. [address] [place] [phone] Change Mental Status (Primary Dx); 03/24/2021 [facility] Ulises Griffith M.B.B.S. [address] [place] [phone] Cirrhosis Alcoholic [facility]HCC) [facility] [address] [place] [phone] [place] [phone] Social History Tobacco Use Types Packs/Day [...] you attend uatsdin or Patient refused 2021 tenriism services? Do [...] Date Recorded Female 04/12/2021 7:39 PM PEDIATRIC NEUROLOGIST documented as of this encounter Last Filed Vital Signs Vital Sign Reading Time Taken Comments Blood Pressure 114/84 03/24/2021 6:18 AM PEDIATRIC NEUROLOGIST Pulse 101 03/24/2021 6:18 AM PEDIATRIC NEUROLOGIST Temperature 37.5 ??C (99.5 ??F) 03/24/2021 6:18 AM PEDIATRIC NEUROLOGIST Respiratory Rate 16 03/23/2021 10:36 PM PEDIATRIC NEUROLOGIST Oxygen Saturation 97% 03/24/2021 6:18 AM PEDIATRIC NEUROLOGIST Inhaled Oxygen Concentration - - Weight 56.6 kg (124 lb 12.5 oz) 03/23/2021 6:35 AM PEDIATRIC NEUROLOGIST Height 157.5 cm (5' 2) 03/12/2021 6:15 AM PEDIATRIC NEUROLOGIST Body Mass Index 22.82 03/12/2021 6:15 AM PEDIATRIC NEUROLOGIST documented in this encounter Discharge Summaries Darian Thomas M.D., J.D. - 03/24/2021 8:11 AM CST DISCHARGE SUMMARY BRIEF OVERVIEW Discharge Hospital: Hospital: [facility] Discharge Provider: No att. providers found Primary Care Providers: Elsewhere, Pcp (General) No address on file Discharge Provider Team: [facility] ([facility]) [facility] Primary Care Provider Phone Number: None [...] on CT scan. Newly diagnosed PFO with ubfsb-oq-gwly atrial shunt. Severe left atrial enlargement. Consider [...] consider having patient follow up with a animal anatomy teacher in the outpatient setting. MEDICATIONS CHANGED DURING [...] staffed with Dr. Guzman. Darian Thomas MD, [facility] Res[facility] ATRIC NEUROLOGIST Associated attestation - Keerthi Guzman M.D. - 03/25/2021 7:48 AM PEDIATRIC NEUROLOGIST I saw the patient on the day [...] encounter Discharge Instructions Discharge Instr - Non [facility] Follow-Hope Torres - 03/24/2021 10:30 AM PEDIATRIC NEUROLOGIST Post Hospital follow-up Dr. Schroeder on: Wednesday, March at 9:30 am [facility] [address] [place] [address] Gastroenterology and Hepatology consult with Dr. Kerry Naranjo on: April 17, 2021 at 3:15pm [address] [address] ATRIC NEUROLOGIST documented in this encounter Medications at Time [...] Cirrhosis Alcoholic (HCC) ASSESSMENT / PLAN ASSESSMENT senior sales operations manager participated in bedside team rounds with bedside nurse Hope LEROY and Dr. Guzman. Patient was cleared to discharge Julissa Russo. [facility] states there are no needs and no f/u needed for mental health as an outpatient. Dr. Guzman reports patient will be ready for discharge on 03-24-21. Patient will discharge to home on 03-24-21. S.O. will provide transportation at approximately 1200. PLAN 1. Care team reporting patient is expected to discharge home when medically stable. 2. There are no identified hospice case manager needs at this time. 3. procurement services manager will assist as needed and requested. Nola Marcos R.N. 03/24/21 ATRIC NEUROLOGIST Zenobia Dickson, Pharm.D., R.Ph. - 03/23/2021 4:13 [...] at discharge: oral SBP prophylaxis Zenobia Dickson PharmJules, R.Ph. ATRIC NEUROLOGIST Darian Thomas M.D., J.D. - 03/23/2021 7:25 [...] [facility] Res[facility] ATRIC NEUROLOGIST Associated attestation - Keerthi Guzman M.D. - 03/23/2021 2:26 PM PEDIATRIC NEUROLOGIST I saw and evaluated the patient, participating [...] insist that she saw a nurse and meat soaker friend of hers, Stephanie. She says this [...] oral, BID Given, 40 mg at 03/22 102 potassium chloride ER tablet 40 mEq (KLORCON/K-TAB) 40 mEq, oral, Once Ordered rifAXIMin tablet 550 mg (XIFAXAN) 550 mg, oral, BID Given, 550 mg at 03/22 102 sodium bicarbonate tablet 650 mg 650 mg, oral, TID Given, 650 mg at 03/22 102 sodium chloride 0.9 % injection 5-15 mL 5-15 mL, IV, Q12H LA[place] Given, 10 mL at 03/22 103 spironolactone tablet 50 mg (ALDACTONE) 50 mg, oral, Daily Given, 50 mg at 03/22 102 thiamine tablet 100 mg (VITAMIN B1) 100 [...] spent in counseling and coordination of care. ATRIC NEUROLOGIST Associated attestation - Desire Ram M.B.B.S., M.D. - 03/25/2021 11:28 PM PEDIATRIC NEUROLOGIST I saw and evaluated the patient, participating [...] [facility] ATRIC NEUROLOGIST Associated attestation - Keerthi Guzman M.D. - 03/22/2021 3:19 PM PEDIATRIC NEUROLOGIST I saw and evaluated the patient, participating [...] Monitoring/Evaluation Monitoring: Meals/Supplement Intake,Weight Status,Mental Status/Confusion,Nausea/Vomiting/Diarrhea,Pertinent Labs ATRIC NEUROLOGIST Darian Thomas M.D., J.DSuma - 03/21/2021 12:16 PM CST SUBJECTIVE INTERVAL [...] considered holdable if she decides to leave [facility] --cont. Zyprexa 5 mg q.h.s. p.r.n. per [...] [facility] ATRIC NEUROLOGIST Associated attestation - Keerthi Guzman M.D. - 03/21/2021 2:26 PM PEDIATRIC NEUROLOGIST I saw and evaluated the patient, participating [...] and happy to accept patient to the [facility] once medically stable --per psych, [...] staffed with Dr. Guzman. Darian Thomas MD [facility] ATRIC NEUROLOGIST Associated attestation - Keerthi Guzman M.D. - 03/20/2021 12:10 PM PEDIATRIC NEUROLOGIST I saw and evaluated the patient, participating [...] discharge: oral SBP prophylaxis Paco Shah, PharmD, formerly [facility]. ATRIC NEUROLOGIST Bernarda Manning APRN, C.N.P., D.N.P. - 03/19/2021 [...] last night. He says these woman working [place] and would not have been in the [...] tube, TID Given, 30 g at 03/19 150 magnesium sulfate in water IVPB 4 g [...] Daily Given, 5 mg at 03/19 135 yprgfcwsq-wcgsoi-spkyosovj 280-160-250 mg per packet 2 packet (PHOS-NAK) 2 packet, oral, Q4H While awake Given, 2 packet at 03/19 175 rifAXIMin tablet 550 mg (XIFAXAN) 550 mg, oral, BID Given, 550 mg at 03/19 09 sodium bicarbonate tablet 650 mg 650 mg, oral, TID Given, 650 mg at 03/19 151 sodium chloride 0.9 % injection 5-15 mL [...] considered holdable if she decides to leave [facility] without a safe discharge plan in place. - Will continue to follow and reassess the need for inpatient psychiatry once she is more medically stable, and the encephalopathy has resolved. ?? ADMINISTRATIVE BILLING Total time is 35 minutes with greater than 25 minutes spent in counseling and coordination of care. ATRIC NEUROLOGIST Darian Thomas M.D., J.D. - 03/19/2021 1:41 [...] [facility] ATRIC NEUROLOGIST Associated attestation - Keerthi Guzman M.D. - 03/19/2021 7:11 PM PEDIATRIC NEUROLOGIST I saw and evaluated the patient, participating [...] oral SBP prophylaxis Virginie Valerio, PharmSumaD., R.Ph. ATRIC NEUROLOGIST Sofi Tomlin RDN, TALI - 03/18/2021 2:36 [...] not eaten yet this morning and encouraged telegraphic typewriter mechanic to allow pt to rest as pt [...] 57 kg BMI (Calculated): 23 kg/m?? % [place] Body Weight: 108 % IBW Adjusted Body [...] EVALUATION: Nutrition Monitoring/Evaluation Monitoring: Meals/Supplement Intake,Nausea/Vomiting/Diarrhea,Pertinent Labs ATRIC NEUROLOGIST Paco Shah, Pharm.D., R.Ph. - 03/18/2021 11:03 [...] oral SBP prophylaxis Virginie Valerio, Pharm.D., R.Ph. ATRIC NEUROLOGIST Darian Thomas M.D., J.D. - 03/18/2021 10:08 [...] staffed with Dr. Valle. Darian Thomas MD [facility] ATRIC NEUROLOGIST Associated attestation - Ulises Valle M.B.B.S. - 03/20/2021 12:12 PM PEDIATRIC NEUROLOGIST I saw and evaluated the patient, participating [...] -- Take 50 mg by mouth daily. ATRIC NEUROLOGIST Junaid Cast M.D. - 03/17/2021 3:02 PM [...] examined by me and Ulises Valle M.B.B.S. Abdifatah Ahmed, M.D. PGY1 [facility] ATRIC NEUROLOGIST Associated attestation - Ulises Valle M.B.B.S. - 03/18/2021 6:06 PM PEDIATRIC NEUROLOGIST I saw and evaluated the patient, participating [...] Procedure Component Value - Date/Time Gram Stain [[id number]] Collected: 03/12/21 1546 Lab Status: Final result Specimen: Peritoneal Fluid Updated: 03/12/21 1822 Gram Stain No organisms seen. White blood cells present. Stain performed on concentrated cytospin preparation. Bacterial Culture, Anaerobic + Susc [[id number]] Collected: 03/12/21 1546 Lab Status: In process Specimen: Peritoneal Fluid Updated: 03/12/21 1548 Bacterial Culture, Aerobic + Susc [[id number]] Collected: 03/12/21 1546 Lab Status: Preliminary result Specimen: Peritoneal Fluid Updated: 03/13/21 1129 Bacterial Culture, Aerobic + Susc No growth to date Bacterial Culture, Aerobic + Susc [[id number]] Collected: 03/12/21 1234 Lab Status: Preliminary result Specimen: Pleural Fluid, Right Updated: 03/13/21 1133 Bacterial Culture, Aerobic + Susc No growth to date Bacterial Culture, Anaerobic + Susc [[id number]] Collected: 03/12/21 1234 Lab Status: In process Specimen: Pleural Fluid, Right Updated: 03/12/21 1308 Gram Stain [[id number]] Collected: 03/12/21 1234 Lab Status: Final result Specimen: Pleural Fluid, Right Updated: 03/12/21 1646 Gram Stain No organisms seen. White blood cells present. Stain performed on concentrated cytospin preparation. Gram Stain [[id number]] Collected: 03/12/21 1234 Lab Status: No result Specimen: Pleural Fluid, Right SARS Coronavirus-2 RNA, V Symptomatic [[id number]] Collected: 03/12/21 1100 Lab Status: Final result [...] was performed using the Aptima SARS-CoV-2 assay ([employer] on the [employer] System under emergency use authorization (EUA) by the U.S. Food and Drug Administration. Fact sheets for this EUA assay can be found at the following links: For Healthcare Providers: https://www.fda.gov/media/163628/download For Patients: https://www.fda.gov/media/281832/download Influenza A/B and RSV, PCR, Varies [[id number]] Collected: 03/12/21 1100 Lab Status: Final result Specimen: Varies from Nasopharynx Updated: 03/13/21 1155 Influenza A/B and RSV, Source Swab, Nasopharynx Influenza A, PCR Undetected Comment: Influenza A RNA absent. Influenza B, PCR Undetected Comment: Influenza B RNA absent. Respiratory Syncytial Virus, PCR Undetected Comment: RSV RNA absent. ----ADDITIONAL INFORMATION---- This test has been modified from the car shifter's instructions. Its performance characteristics were determined by [facility] in a manner consistent with CLIA requirements. This test has not been cleared or approved by the U.S. Food and Drug Administration. Bacteria / Raudel Culture, Blood #2 [[id number]] Collected: 03/12/21 0710 Lab Status: Preliminary result Specimen: Blood, Peripheral Draw Updated: 03/13/21 0805 Bacteria/Raudel Culture, Blood No growth to date. MRSA PCR, Nasal [[id number]] Collected: 03/12/21622 Lab Status: Final result Specimen: Swab from Nares Updated: 03/12/21 1050 MRSA Screen, Nasal by PCR Negative Hepatitis B Surface Antigen [[id number]] Collected: 03/12/21557 Lab Status: Final result Specimen: Blood, Peripheral Draw Updated: 03/12/21 0744 HBs Antigen, S Nonreactive Comment: Biotin has been identified by the car shifter as a potential interfering substance. Higher concentrations of biotin may be found in multivitamins, hair/nail supplements, and workout supplements. If the result does not match clinical observations, repeat testing after patient refrains from the use of supplements for at least 12 hours. Hepatitis B Core IgM Ab [[id number]] Collected: 03/12/21557 Lab Status: Final result Specimen: Blood, Peripheral Draw Updated: 03/13/21 09 HBc IgM Ab, S Negative Hepatitis A IgM Ab, Serum [[id number]] Collected: 03/12/21557 Lab Status: Final result Specimen: Blood, Peripheral Draw Updated: 03/13/2151 Hepatitis A IgM Ab, S Negative Comment: Result does not exclude the possibility of exposure to hepatitis A virus. Antibody level during early infection stage may be below the limit of detection of the assay. HCV Ab w/Reflex to HCV PCR, Serum [[id number]] Collected: 03/12/21557 Lab Status: Final result Specimen: Blood, Peripheral Draw Updated: 03/13/21 09 HCV Ab, S Negative Comment: Ggacxv-mz-tpiujd ratio is <1.00. Bacteria / Raudel Culture, Blood #1 [[id number]] Collected: 03/12/21556 Lab Status: Preliminary result Specimen: [...] out given to hospitalist. Lizet Navarro M.D. ATRIC NEUROLOGIST Ulises Valel M.B.B.S. - 03/16/2021 5:30 PM CST The [...] more details on the specifics ofthe plan. ATRIC NEUROLOGIST Kerry Naranjo APRN, C.N.P., M.S.N. - 03/16/2021 [...] ICU attending. Kerry Naranjo APRN, Katrin.N.Frances, M.S.N. ATRIC NEUROLOGIST Daron Cochran, PharmSumaD., R.Ph. - 03/16/2021 9:20 [...] Procedure Component Value - Date/Time Gram Stain [[id number]] Collected: 03/12/21 848 Lab Status: Final result Specimen: Peritoneal Fluid Updated: 03/12/211821 Gram Stain No organisms seen. White blood cells present. Stain performed on concentrated cytospin preparation. Bacterial Culture, Anaerobic + Susc [[id number]] Collected: 03/12/21 1546 Lab Status: Preliminary result Specimen: Peritoneal Fluid Updated: 03/14/21 0523 Bacterial Culture, Anaerobic No growth to date. Bacterial Culture, Aerobic + Susc [[id number]] Collected: 03/12/21 1546 Lab Status: Preliminary result Specimen: Peritoneal Fluid Updated: 03/13/21 1129 Bacterial Culture, Aerobic + Susc No growth to date Bacterial Culture, Aerobic + Susc [[id number]] Collected: 03/12/21 1234 Lab Status: Preliminary result Specimen: Pleural Fluid, Right Updated: 03/13/21 1133 Bacterial Culture, Aerobic + Susc No growth to date Bacterial Culture, Anaerobic + Susc [[id number]] Collected: 03/12/21 1234 Lab Status: Preliminary result Specimen: Pleural Fluid, Right Updated: 03/14/21 0523 Bacterial Culture, Anaerobic No growth to date. Gram Stain [[id number]] Collected: 03/12/21 1234 Lab Status: Final result Specimen: Pleural Fluid, Right Updated: 03/12/21 1646 Gram Stain No organisms seen. White blood cells present. Stain performed on concentrated cytospin preparation. Gram Stain [[id number]] Collected: 03/12/21 1234 Lab Status: No result Specimen: Pleural Fluid, Right SARS Coronavirus-2 RNA, V Symptomatic [[id number]] Collected: 03/12/21 1100 Lab Status: Final result [...] was performed using the Aptima SARS-CoV-2 assay ([employer] on the [employer] System under emergency use authorization (EUA) by the U.S. Food and Drug Administration. Fact sheets for this EUA assay can be found at the following links: For Healthcare Providers: https://www.fda.gov/media/384705/download For Patients: https://www.fda.gov/media/165251/download Influenza A/B and RSV, PCR, Varies [[id number]] Collected: 03/12/21 1100 Lab Status: Final result Specimen: Varies from Nasopharynx Updated: 03/13/21 1155 Influenza A/B and RSV, Source Swab, Nasopharynx Influenza A, PCR Undetected Comment: Influenza A RNA absent. Influenza B, PCR Undetected Comment: Influenza B RNA absent. Respiratory Syncytial Virus, PCR Undetected Comment: RSV RNA absent. ----ADDITIONAL INFORMATION---- This test has been modified from the car shifter's instructions. Its performance characteristics were determined by [facility] in a manner consistent with CLIA requirements. This test has not been cleared or approved by the U.S. Food and Drug Administration. Bacteria / Raudel Culture, Blood #2 [[id number]] Collected: 03/12/21 0710 Lab Status: Preliminary result Specimen: Blood, Peripheral Draw Updated: 03/16/21 0805 Bacteria/Raudel Culture, Blood No growth to date. MRSA PCR, Nasal [[id number]] Collected: 03/12/21 0623 Lab Status: Final result Specimen: Swab from Nares Updated: 03/12/21 1050 MRSA Screen, Nasal by PCR Negative Hepatitis B Surface Antigen [[id number]] Collected: 03/12/21557 Lab Status: Final result Specimen: Blood, Peripheral Draw Updated: 03/12/21 0744 HBs Antigen, S Nonreactive Comment: Biotin has been identified by the car shifter as a potential interfering substance. Higher concentrations of biotin may be found in multivitamins, hair/nail supplements, and workout supplements. If the result does not match clinical observations, repeat testing after patient refrains from the use of supplements for at least 12 hours. Hepatitis B Core IgM Ab [[id number]] Collected: 03/12/21557 Lab Status: Final result Specimen: Blood, Peripheral Draw Updated: 03/13/21 09 HBc IgM Ab, S Negative Hepatitis A IgM Ab, Serum [[id number]] Collected: 03/12/21557 Lab Status: Final result Specimen: Blood, Peripheral Draw Updated: 03/13/21950 Hepatitis A IgM Ab, S Negative Comment: Result does not exclude the possibility of exposure to hepatitis A virus. Antibody level during early infection stage may be below the limit of detection of the assay. HCV Ab w/Reflex to HCV PCR, Serum [[id number]] Collected: 03/12/21 0558 Lab Status: Final result Specimen: Blood, Peripheral Draw Updated: 03/13/21 0925 HCV Ab, S Negative Comment: Jazojb-gi-xkurgq ratio is <1.00. Bacteria / Raudel Culture, Blood #1 [[id number]] Collected: 03/12/21 0557 Lab Status: Preliminary result Specimen: Blood, Peripheral Draw Updated: 03/16/21 0705 Bacteria/Raduel Culture, Blood No growth to date. ASSESSMENT [...] oral SBP prophylaxis Virginie Valerio, Pharm.D., R.Ph. ATRIC NEUROLOGIST Lizet Navarro M.D. - 03/15/2021 1:19 PM [...] Procedure Component Value - Date/Time Gram Stain [[id number]] Collected: 03/12/21 1546 Lab Status: Final result Specimen: Peritoneal Fluid Updated: 03/12/21 1822 Gram Stain No organisms seen. White blood cells present. Stain performed on concentrated cytospin preparation. Bacterial Culture, Anaerobic + Susc [[id number]] Collected: 03/12/21 1546 Lab Status: In process Specimen: Peritoneal Fluid Updated: 03/12/21 1548 Bacterial Culture, Aerobic + Susc [[id number]] Collected: 03/12/21 1546 Lab Status: Preliminary result Specimen: Peritoneal Fluid Updated: 03/13/21 1129 Bacterial Culture, Aerobic + Susc No growth to date Bacterial Culture, Aerobic + Susc [[id number]] Collected: 03/12/21 1234 Lab Status: Preliminary result Specimen: Pleural Fluid, Right Updated: 03/13/21 1133 Bacterial Culture, Aerobic + Susc No growth to date Bacterial Culture, Anaerobic + Susc [[id number]] Collected: 03/12/21 1234 Lab Status: In process Specimen: Pleural Fluid, Right Updated: 03/12/21 1308 Gram Stain [[id number]] Collected: 03/12/21 123 Lab Status: Final result Specimen: Pleural Fluid, Right Updated: 03/12/21 1646 Gram Stain No organisms seen. White blood cells present. Stain performed on concentrated cytospin preparation. Gram Stain [[id number]] Collected: 03/12/21 1234 Lab Status: No result Specimen: Pleural Fluid, Right SARS Coronavirus-2 RNA, V Symptomatic [[id number]] Collected: 03/12/21 1100 Lab Status: Final result [...] molecular amplification test was performed using the Varioptic SARS-CoV-2 assay ([employer] on the [employer] System under emergency use authorization (EUA) by the U.S. Food and Drug Administration. Fact sheets for this EUA assay can be found at the following links: For Healthcare Providers: https://www.fda.gov/media/588311/download For Patients: https://www.fda.gov/media/840466/download Influenza A/B and RSV, PCR, Varies [[id number]] Collected: 03/12/21 1100 Lab Status: Final result Specimen: Varies from Nasopharynx Updated: 03/13/21 1155 Influenza A/B and RSV, Source Swab, Nasopharynx Influenza A, PCR Undetected Comment: Influenza A RNA absent. Influenza B, PCR Undetected Comment: Influenza B RNA absent. Respiratory Syncytial Virus, PCR Undetected Comment: RSV RNA absent. ----ADDITIONAL INFORMATION---- This test has been modified from the car shifter's instructions. Its performance characteristics were determined by [facility] in a manner consistent with CLIA requirements. This test has not been cleared or approved by the U.S. Food and Drug Administration. Bacteria / Raudel Culture, Blood #2 [[id number]] Collected: 03/12/21 0710 Lab Status: Preliminary result Specimen: Blood, Peripheral Draw Updated: 03/13/21 0805 Bacteria/Raudel Culture, Blood No growth to date. MRSA PCR, Nasal [[id number]] Collected: 03/12/21 0623 Lab Status: Final result Specimen: Swab from Nares Updated: 03/12/21 1050 MRSA Screen, Nasal by PCR Negative Hepatitis B Surface Antigen [[id number]] Collected: 03/12/21557 Lab Status: Final result Specimen: Blood, Peripheral Draw Updated: 03/12/21 0744 HBs Antigen, S Nonreactive Comment: Biotin has been identified by the car shifter as a potential interfering substance. Higher concentrations of biotin may be found in multivitamins, hair/nail supplements, and workout supplements. If the result does not match clinical observations, repeat testing after patient refrains from the use of supplements for at least 12 hours. Hepatitis B Core IgM Ab [[id number]] Collected: 03/12/21557 Lab Status: Final result Specimen: Blood, Peripheral Draw Updated: 03/13/21911 HBc IgM Ab, S Negative Hepatitis A IgM Ab, Serum [[id number]] Collected: 03/12/21557 Lab Status: Final result Specimen: Blood, Peripheral Draw Updated: 03/13/21950 Hepatitis A IgM Ab, S Negative Comment: Result does not exclude the possibility of exposure to hepatitis A virus. Antibody level during early infection stage may be below the limit of detection of the assay. HCV Ab w/Reflex to HCV PCR, Serum [[id number]] Collected: 03/12/21557 Lab Status: Final result Specimen: Blood, Peripheral Draw Updated: 03/13/21924 HCV Ab, S Negative Comment: Srxijv-op-zpdlba ratio is <1.00. Bacteria / Raudel Culture, Blood #1 [[id number]] Collected: 03/12/21556 Lab Status: Preliminary result Specimen: [...] care time 35 min Lizet Navarro M.D. ATRIC NEUROLOGIST Kerry Naranjo APRN C.N.P., M.S.N. - 03/15/2021 12:41 PM CST SUBJECTIVE Catia Carias reports having no nausea, vomiting and abdominal pain. Her symptoms are improving.She no longer is intubated, with extubated yesterday afternoon. Discussed with her need for follow-up in the GI clinic with town [facility]; she is interested in that appointment I [...] Naranjo APRN, C.N.P., M.S.N. Gastroenterology and Hepatology [facility] ATRIC NEUROLOGIST Daron Cochran, Khurram, R.Ph. - 03/15/2021 9:05 AM CST Pharmacist [...] Procedure Component Value - Date/Time Gram Stain [[id number]] Collected: 03/12/211545 Lab Status: Final result Specimen: Peritoneal Fluid Updated: 03/12/211821 Gram Stain No organisms seen. White blood cells present. Stain performed on concentrated cytospin preparation. Bacterial Culture, Anaerobic + Susc [[id number]] Collected: 03/12/21 154 Lab Status: Preliminary result Specimen: Peritoneal Fluid Updated: 03/14/21 0523 Bacterial Culture, Anaerobic No growth to date. Bacterial Culture, Aerobic + Susc [[id number]] Collected: 03/12/21 1546 Lab Status: Preliminary result Specimen: Peritoneal Fluid Updated: 03/13/21 1129 Bacterial Culture, Aerobic + Susc No growth to date Bacterial Culture, Aerobic + Susc [[id number]] Collected: 03/12/21 1234 Lab Status: Preliminary result Specimen: Pleural Fluid, Right Updated: 03/13/21 1133 Bacterial Culture, Aerobic + Susc No growth to date Bacterial Culture, Anaerobic + Susc [[id number]] Collected: 03/12/21 1234 Lab Status: Preliminary result Specimen: Pleural Fluid, Right Updated: 03/14/21 0523 Bacterial Culture, Anaerobic No growth to date. Gram Stain [[id number]] Collected: 03/12/211233 Lab Status: Final result Specimen: Pleural Fluid, Right Updated: 03/12/21 1646 Gram Stain No organisms seen. White blood cells present. Stain performed on concentrated cytospin preparation. Gram Stain [[id number]] Collected: 03/12/211233 Lab Status: No result Specimen: Pleural Fluid, Right SARS Coronavirus-2 RNA, V Symptomatic [[id number]] Collected: 03/12/21 1100 Lab Status: Final result [...] was performed using the Aptima SARS-CoV-2 assay ([employer] on the [employer] System under emergency use authorization (EUA) by the U.S. Food and Drug Administration. Fact sheets for this EUA assay can be found at the following links: For Healthcare Providers: https://www.fda.gov/media/272929/download For Patients: https://www.fda.gov/media/424173/download Influenza A/B and RSV, PCR, Varies [[id number]] Collected: 03/12/21 1100 Lab Status: Final result Specimen: Varies from Nasopharynx Updated: 03/13/21 1155 Influenza A/B and RSV, Source Swab, Nasopharynx Influenza A, PCR Undetected Comment: Influenza A RNA absent. Influenza B, PCR Undetected Comment: Influenza B RNA absent. Respiratory Syncytial Virus, PCR Undetected Comment: RSV RNA absent. ----ADDITIONAL INFORMATION---- This test has been modified from the car shifter's instructions. Its performance characteristics were determined by [facility] in a manner consistent with CLIA requirements. This test has not been cleared or approved by the U.S. Food and Drug Administration. Bacteria / Raudel Culture, Blood #2 [[id number]] Collected: 03/12/21709 Lab Status: Preliminary result Specimen: Blood, Peripheral Draw Updated: 03/15/21804 Bacteria/Raudel Culture, Blood No growth to date. MRSA PCR, Nasal [[id number]] Collected: 03/12/21622 Lab Status: Final result Specimen: Swab from Nares Updated: 03/12/21 105 MRSA Screen, Nasal by PCR Negative Hepatitis B Surface Antigen [[id number]] Collected: 03/12/21557 Lab Status: Final result Specimen: Blood, Peripheral Draw Updated: 03/12/21743 HBs Antigen, S Nonreactive Comment: Biotin has been identified by the car shifter as a potential interfering substance. Higher concentrations of biotin may be found in multivitamins, hair/nail supplements, and workout supplements. If the result does not match clinical observations, repeat testing after patient refrains from the use of supplements for at least 12 hours. Hepatitis B Core IgM Ab [[id number]] Collected: 03/12/21557 Lab Status: Final result Specimen: Blood, Peripheral Draw Updated: 03/13/21911 HBc IgM Ab, S Negative Hepatitis A IgM Ab, Serum [[id number]] Collected: 03/12/21557 Lab Status: Final result Specimen: Blood, Peripheral Draw Updated: 03/13/21950 Hepatitis A IgM Ab, S Negative Comment: Result does not exclude the possibility of exposure to hepatitis A virus. Antibody level during early infection stage may be below the limit of detection of the assay. HCV Ab w/Reflex to HCV PCR, Serum [[id number]] Collected: 03/12/21557 Lab Status: Final result Specimen: Blood, Peripheral Draw Updated: 03/13/21924 HCV Ab, S Negative Comment: Hsrqfm-ei-zywznb ratio is <1.00. Bacteria / Raudel Culture, Blood #1 [[id number]] Collected: 03/12/21556 Lab Status: Preliminary result Specimen: [...] at discharge: TBD Virginie Valerio, Pharm.D., R.Ph. ATRIC NEUROLOGIST Lizet Navarro M.D. - 03/14/2021 12:10 PM [...] Procedure Component Value - Date/Time Gram Stain [[id number]] Collected: 03/12/211545 Lab Status: Final result Specimen: Peritoneal Fluid Updated: 03/12/21 182 Gram Stain No organisms seen. White blood cells present. Stain performed on concentrated cytospin preparation. Bacterial Culture, Anaerobic + Susc [[id number]] Collected: 03/12/21 1546 Lab Status: In process Specimen: Peritoneal Fluid Updated: 03/12/21 154 Bacterial Culture, Aerobic + Susc [[id number]] Collected: 03/12/21 1546 Lab Status: Preliminary result Specimen: Peritoneal Fluid Updated: 03/13/21 1129 Bacterial Culture, Aerobic + Susc No growth to date Bacterial Culture, Aerobic + Susc [[id number]] Collected: 03/12/21 1234 Lab Status: Preliminary result Specimen: Pleural Fluid, Right Updated: 03/13/21 1133 Bacterial Culture, Aerobic + Susc No growth to date Bacterial Culture, Anaerobic + Susc [[id number]] Collected: 03/12/21 1234 Lab Status: In process Specimen: Pleural Fluid, Right Updated: 03/12/21 1308 Gram Stain [[id number]] Collected: 03/12/21 123 Lab Status: Final result Specimen: Pleural Fluid, Right Updated: 03/12/21 1646 Gram Stain No organisms seen. White blood cells present. Stain performed on concentrated cytospin preparation. Gram Stain [[id number]] Collected: 03/12/21 123 Lab Status: No result Specimen: Pleural Fluid, Right SARS Coronavirus-2 RNA, V Symptomatic [[id number]] Collected: 03/12/21 1100 Lab Status: Final result [...] was performed using the Aptima SARS-CoV-2 assay ([employer] on the [employer] System under emergency use authorization (EUA) by the U.S. Food and Drug Administration. Fact sheets for this EUA assay can be found at the following links: For Healthcare Providers: https://www.fda.gov/media/056333/download For Patients: https://www.fda.gov/media/570078/download Influenza A/B and RSV, PCR, Varies [[id number]] Collected: 03/12/21 1100 Lab Status: Final result Specimen: Varies from Nasopharynx Updated: 03/13/21 1155 Influenza A/B and RSV, Source Swab, Nasopharynx Influenza A, PCR Undetected Comment: Influenza A RNA absent. Influenza B, PCR Undetected Comment: Influenza B RNA absent. Respiratory Syncytial Virus, PCR Undetected Comment: RSV RNA absent. ----ADDITIONAL INFORMATION---- This test has been modified from the car shifter's instructions. Its performance characteristics were determined by [facility] in a manner consistent with CLIA requirements. This test has not been cleared or approved by the U.S. Food and Drug Administration. Bacteria / Raudel Culture, Blood #2 [[id number]] Collected: 03/12/21709 Lab Status: Preliminary result Specimen: Blood, Peripheral Draw Updated: 03/13/21804 Bacteria/Raudel Culture, Blood No growth to date. MRSA PCR, Nasal [[id number]] Collected: 03/12/21622 Lab Status: Final result Specimen: Swab from Nares Updated: 03/12/21 105 MRSA Screen, Nasal by PCR Negative Hepatitis B Surface Antigen [[id number]] Collected: 03/12/21557 Lab Status: Final result Specimen: Blood, Peripheral Draw Updated: 03/12/21743 HBs Antigen, S Nonreactive Comment: Biotin has been identified by the car shifter as a potential interfering substance. Higher concentrations of biotin may be found in multivitamins, hair/nail supplements, and workout supplements. If the result does not match clinical observations, repeat testing after patient refrains from the use of supplements for at least 12 hours. Hepatitis B Core IgM Ab [[id number]] Collected: 03/12/21557 Lab Status: Final result Specimen: Blood, Peripheral Draw Updated: 03/13/21911 HBc IgM Ab, S Negative Hepatitis A IgM Ab, Serum [[id number]] Collected: 03/12/21557 Lab Status: Final result Specimen: Blood, Peripheral Draw Updated: 03/13/21950 Hepatitis A IgM Ab, S Negative Comment: Result does not exclude the possibility of exposure to hepatitis A virus. Antibody level during early infection stage may be below the limit of detection of the assay. HCV Ab w/Reflex to HCV PCR, Serum [[id number]] Collected: 03/12/21557 Lab Status: Final result Specimen: Blood, Peripheral Draw Updated: 03/13/21924 HCV Ab, S Negative Comment: Gqhbjh-vk-raefiv ratio is <1.00. Bacteria / Raudel Culture, Blood #1 [[id number]] Collected: 03/12/21556 Lab Status: Preliminary result Specimen: [...] care time 35 min Lizet Navarro M.D. ATRIC NEUROLOGIST Kerry Naranjo, YARITZA, C.N.P., M.S.N. - 03/14/2021 10:39 AM CST [...] Naranjo APRN, C.N.P., M.S.N. Gastroenterology and Hepatology [facility] ATRIC NEUROLOGIST Associated attestation - Leslie Hawk M.D. - 03/14/2021 1:07 PM PEDIATRIC NEUROLOGIST This is a supervisory note for gastroenterology [...] ceruloplasmin, I have discussed her case with town justice, since patient is anuric currently, we will [...] Procedure Component Value - Date/Time Gram Stain [[id number]] Collected: 03/12/21 1546 Lab Status: Final result Specimen: Peritoneal Fluid Updated: 03/12/21 1822 Gram Stain No organisms seen. White blood cells present. Stain performed on concentrated cytospin preparation. Bacterial Culture, Anaerobic + Susc [[id number]] Collected: 03/12/21 1546 Lab Status: Preliminary result Specimen: Peritoneal Fluid Updated: 03/14/21 0523 Bacterial Culture, Anaerobic No growth to date. Bacterial Culture, Aerobic + Susc [[id number]] Collected: 03/12/21 1546 Lab Status: Preliminary result Specimen: Peritoneal Fluid Updated: 03/13/21 1129 Bacterial Culture, Aerobic + Susc No growth to date Bacterial Culture, Aerobic + Susc [[id number]] Collected: 03/12/21 1234 Lab Status: Preliminary result Specimen: Pleural Fluid, Right Updated: 03/13/21 1133 Bacterial Culture, Aerobic + Susc No growth to date Bacterial Culture, Anaerobic + Susc [[id number]] Collected: 03/12/21 1234 Lab Status: Preliminary result Specimen: Pleural Fluid, Right Updated: 03/14/21 0523 Bacterial Culture, Anaerobic No growth to date. Gram Stain [[id number]] Collected: 03/12/21 1234 Lab Status: Final result Specimen: Pleural Fluid, Right Updated: 03/12/21 1646 Gram Stain No organisms seen. White blood cells present. Stain performed on concentrated cytospin preparation. Gram Stain [[id number]] Collected: 03/12/21 1234 Lab Status: No result Specimen: Pleural Fluid, Right SARS Coronavirus-2 RNA, V Symptomatic [[id number]] Collected: 03/12/21 1100 Lab Status: Final result [...] was performed using the Aptima SARS-CoV-2 assay ([employer] on the [employer] System under emergency use authorization (EUA) by the U.S. Food and Drug Administration. Fact sheets for this EUA assay can be found at the following links: For Healthcare Providers: https://www.fda.gov/media/757524/download For Patients: https://www.fda.gov/media/446221/download Influenza A/B and RSV, PCR, Varies [[id number]] Collected: 03/12/21 1100 Lab Status: Final result Specimen: Varies from Nasopharynx Updated: 03/13/21 1155 Influenza A/B and RSV, Source Swab, Nasopharynx Influenza A, PCR Undetected Comment: Influenza A RNA absent. Influenza B, PCR Undetected Comment: Influenza B RNA absent. Respiratory Syncytial Virus, PCR Undetected Comment: RSV RNA absent. ----ADDITIONAL INFORMATION---- This test has been modified from the car shifter's instructions. Its performance characteristics were determined by [facility] in a manner consistent with CLIA requirements. This test has not been cleared or approved by the U.S. Food and Drug Administration. Bacteria / Raudel Culture, Blood #2 [[id number]] Collected: 03/12/21 0710 Lab Status: Preliminary result Specimen: Blood, Peripheral Draw Updated: 03/14/21 0805 Bacteria/Raudel Culture, Blood No growth to date. MRSA PCR, Nasal [[id number]] Collected: 03/12/21 0623 Lab Status: Final result Specimen: Swab from Nares Updated: 03/12/21 1050 MRSA Screen, Nasal by PCR Negative Hepatitis B Surface Antigen [[id number]] Collected: 03/12/21557 Lab Status: Final result Specimen: Blood, Peripheral Draw Updated: 03/12/21 0744 HBs Antigen, S Nonreactive Comment: Biotin has been identified by the car shifter as a potential interfering substance. Higher concentrations of biotin may be found in multivitamins, hair/nail supplements, and workout supplements. If the result does not match clinical observations, repeat testing after patient refrains from the use of supplements for at least 12 hours. Hepatitis B Core IgM Ab [[id number]] Collected: 03/12/21557 Lab Status: Final result Specimen: Blood, Peripheral Draw Updated: 03/13/21 0912 HBc IgM Ab, S Negative Hepatitis A IgM Ab, Serum [[id number]] Collected: 03/12/21557 Lab Status: Final result Specimen: Blood, Peripheral Draw Updated: 03/13/21 0951 Hepatitis A IgM Ab, S Negative Comment: Result does not exclude the possibility of exposure to hepatitis A virus. Antibody level during early infection stage may be below the limit of detection of the assay. HCV Ab w/Reflex to HCV PCR, Serum [[id number]] Collected: 03/12/21 0558 Lab Status: Final result Specimen: Blood, Peripheral Draw Updated: 03/13/21 0925 HCV Ab, S Negative Comment: Javzsn-jb-gqlczm ratio is <1.00. Bacteria / Raudel Culture, Blood #1 [[id number]] Collected: 03/12/21 0557 Lab Status: Preliminary result Specimen: Blood, Peripheral Draw Updated: 03/14/21 0705 Bacteria/Raudel Culture, Blood No growth to [...] anticipated at discharge: TBSlick Valerio, Pharm.D., R.Ph. ATRIC NEUROLOGIST Silvestre Stevens, R.R.T. - 03/14/2021 9:31 AM [...] extubated to 4 lpm per nasal canula ATRIC NEUROLOGIST Adry Reyes - 03/14/2021 4:20 AM CST [...] signed by: Adry Reyes 03/14/21 4:21 AM PEDIATRIC NEUROLOGIST ATRIC NEUROLOGIST Tariq Marcano M.B.B.SSuma - 03/13/2021 7:04 PM CST SUBJECTIVE CHIEF [...] Procedure Component Value - Date/Time Gram Stain [[id number]] Collected: 03/12/21 1546 Lab Status: Final result Specimen: Peritoneal Fluid Updated: 03/12/21 1822 Gram Stain No organisms seen. White blood cells present. Stain performed on concentrated cytospin preparation. Bacterial Culture, Anaerobic + Susc [[id number]] Collected: 03/12/21 1546 Lab Status: In process Specimen: Peritoneal Fluid Updated: 03/12/21 1548 Bacterial Culture, Aerobic + Susc [[id number]] Collected: 03/12/21 1546 Lab Status: Preliminary result Specimen: Peritoneal Fluid Updated: 03/13/21 1129 Bacterial Culture, Aerobic + Susc No growth to date Bacterial Culture, Aerobic + Susc [[id number]] Collected: 03/12/21 1234 Lab Status: Preliminary result Specimen: Pleural Fluid, Right Updated: 03/13/21 1133 Bacterial Culture, Aerobic + Susc No growth to date Bacterial Culture, Anaerobic + Susc [[id number]] Collected: 03/12/21 1234 Lab Status: In process Specimen: Pleural Fluid, Right Updated: 03/12/21 1308 Gram Stain [[id number]] Collected: 03/12/21 1234 Lab Status: Final result Specimen: Pleural Fluid, Right Updated: 03/12/21 1646 Gram Stain No organisms seen. White blood cells present. Stain performed on concentrated cytospin preparation. Gram Stain [[id number]] Collected: 03/12/21 1234 Lab Status: No result Specimen: Pleural Fluid, Right SARS Coronavirus-2 RNA, V Symptomatic [[id number]] Collected: 03/12/21 1100 Lab Status: Final result [...] was performed using the Aptima SARS-CoV-2 assay ([employer] on the [employer] System under emergency use authorization (EUA) by the U.S. Food and Drug Administration. Fact sheets for this EUA assay can be found at the following links: For Healthcare Providers: https://www.fda.gov/media/457397/download For Patients: https://www.fda.gov/media/444642/download Influenza A/B and RSV, PCR, Varies [[id number]] Collected: 03/12/21 1100 Lab Status: Final result Specimen: Varies from Nasopharynx Updated: 03/13/21 1155 Influenza A/B and RSV, Source Swab, Nasopharynx Influenza A, PCR Undetected Comment: Influenza A RNA absent. Influenza B, PCR Undetected Comment: Influenza B RNA absent. Respiratory Syncytial Virus, PCR Undetected Comment: RSV RNA absent. ----ADDITIONAL INFORMATION---- This test has been modified from the car shifter's instructions. Its performance characteristics were determined by [facility] in a manner consistent with CLIA requirements. This test has not been cleared or approved by the U.S. Food and Drug Administration. Bacteria / Raudel Culture, Blood #2 [[id number]] Collected: 03/12/21 0710 Lab Status: Preliminary result Specimen: Blood, Peripheral Draw Updated: 03/13/21 0805 Bacteria/Raudel Culture, Blood No growth to date. MRSA PCR, Nasal [[id number]] Collected: 03/12/21 0623 Lab Status: Final result Specimen: Swab from Nares Updated: 03/12/21 1050 MRSA Screen, Nasal by PCR Negative Hepatitis B Surface Antigen [[id number]] Collected: 03/12/21 0558 Lab Status: Final result Specimen: Blood, Peripheral Draw Updated: 03/12/21 0744 HBs Antigen, S Nonreactive Comment: Biotin has been identified by the car shifter as a potential interfering substance. Higher concentrations of biotin may be found in multivitamins, hair/nail supplements, and workout supplements. If the result does not match clinical observations, repeat testing after patient refrains from the use of supplements for at least 12 hours. Hepatitis B Core IgM Ab [[id number]] Collected: 03/12/21557 Lab Status: Final result Specimen: Blood, Peripheral Draw Updated: 03/13/21911 HBc IgM Ab, S Negative Hepatitis A IgM Ab, Serum [[id number]] Collected: 03/12/21557 Lab Status: Final result Specimen: Blood, Peripheral Draw Updated: 03/13/21950 Hepatitis A IgM Ab, S Negative Comment: Result does not exclude the possibility of exposure to hepatitis A virus. Antibody level during early infection stage may be below the limit of detection of the assay. HCV Ab w/Reflex to HCV PCR, Serum [[id number]] Collected: 03/12/21557 Lab Status: Final result Specimen: Blood, Peripheral Draw Updated: 03/13/21924 HCV Ab, S Negative Comment: Ougqup-oh-jmaaqm ratio is <1.00. Bacteria / Raudel Culture, Blood #1 [[id number]] Collected: 03/12/21556 Lab Status: Preliminary result Specimen: [...] 32 minutes. I personally discussed with the metal sander and finisher on-call Tyrell Wright ATRIC NEUROLOGIST Criselda Maurer R.R.T., L.R.T. - 03/13/2021 6:09 [...] ART 30 L PH ART 7.46 H ATRIC NEUROLOGIST Kerry Naranjo APRN, C.N.P., M.S.N. - 03/13/2021 [...] Naranjo APRN, C.N.P., M.S.N. Gastroenterology and Hepatology [facility] ATRIC NEUROLOGIST Associated attestation - Leslie Hawk M.D. - 03/13/2021 2:43 PM PEDIATRIC NEUROLOGIST This is a supervisory note for gastroenterology [...] 1 gm x1 given 03/12 ?? Per assistant auditor, plan for 5 days of broad spectrums [...] at discharge: TBD Virginie Valerio, Pharm.D., R.Ph. ATRIC NEUROLOGIST Sridhar Trevino, R.R.T. - 03/13/2021 6:29 AM CST 2000-Pt seen this evening with 7.5 ETT, secured 22cm @ teeth. Pt on kincaid ventilator SCMV 18/320/+12/40% SpO2: 99% Breath Sounds/Secretions: clear/dim, suctioning out small white/yellow secretions. Pt tolerating ventilator well RT to follow ATRIC NEUROLOGIST Virginie Valerio, R.Ph. - 03/12/2021 10:18 AM [...] at discharge: TBD Virginie Valerio, Pharm.D., R.Ph. ATRIC NEUROLOGIST Shahida Brito R.R.T., L.R.T. - 03/12/2021 10:14 AM CST Pt was intubated with 7.5 ETT placed at 22@ teeth. Tube placement confirmed with bilateral breath sounds and positive ETCO2. She was placed on the ventilator at volume control 20/300/+8/40%. ATRIC NEUROLOGIST documented in this encounter H&P Notes Ivan [...] She has had a phone consultation with [place] [facility] but no liver biopsy area thing has [...] again had likely had a consultation with [place] [facility] and will request records from their [...] from lines of procedures was 60 minutes ATRIC NEUROLOGIST documented in this encounter Procedure Notes Barrera [...] slight turn: yes Complications - arterial: none ATRIC NEUROLOGIST Barrera To M.D. - 03/12/2021 6:02 PM [...] ETT location: oral VL device: glide scope [place] scope blade size: 3 Adult tube size: [...] right mid-axillary Intercostal space: 3rd Puncture method: ggsi-uny-tvxmus catheter Number of attempts: 1 Drainage characteristics: [...] completed successfully: yes Complications: no apparent complications ATRIC NEUROLOGIST documented in this encounter Consult Notes Ciara Stewart L.G.S.W. - 03/21/2021 2:09 PM CST Diagnostic Assessment SUBJECTIVE DEMOGRAPHIC INFORMATION Referral Source: CM/ROSAS Referral Referral Reason: Psychosocial assessment,Coping, adjustment and support,Discharge Planning Discharge Planning: (to be determined) Person(s) present during interview: Lobito Rosenthal Primary care clinic and provider: ELSEWHERE, PCP, Patient reported Dr. Roge Hernandez, [facility] to be her primary Doctor Primary Language: Citizen Of [place] Warm In Worker Services Used: No Legal Information: Voluntary Citizenship: [...] Support System: Significant other,Parent,Family members Spirituality / Zoroastrian / Culture: , patient was raised Restorationism but does not currently attend uatsdin. 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 ASSISTIVE DEVICES Patient has the following equipment: Eyeglasses,Contacts Patient anticipates potentially needing the following additional equipment: None Transportation needs: Support from family ADVANCED ANALYTICS ASSOCIATE Caregiver Name: Lobito Brunson Caregiver Relationship: Significant other Caregiver FINANCES/INSURANCE Primary insurance: [employer] Secondary insurance: N/A Income Information Does the Patient have any Financial Concerns?: Yes Income Source: Parent/primary caregiver employmen Income/Expense Information: Income meets expenses ADVANCE DIRECTIVES The patient does not currently have an advance directive on file. LEGAL HISTORY Review of the [place] Trial Court Public Access Website ([email or web address].) shows no past or current criminal charges. [...] side effects. Patient works with Dr. Hernandez, [facility], for medication management and support. Thepatient [...] Intact Suicide Risk and Safety Risk Assessment: [place] Suicide Risk Severity Scale (C-SSRS)Lifetime/Recent 03/21/21 1400 [...] active suicidal and homicidal ideation. Lifetime/Recent: The [place] Suicide Severity Rating Scale (C-SSRS) Lifetime/Recent screening [...] sustained remission INTERVENTIONS 1. Inpatient clinical social service liaison completed a diagnostic assessment in response to a chemical dependency order placed by Keerthi Guzman (ordering hospitalist). 2. collar worker engaged the patient in Solution Focused Brief Therapy and Motivational Interviewingutilizing scaling questions and process questions and rapport building, empathetic communication, open ended questioning, summarizing and reflection to complete the assessment process. collar worker recommended patient continue to follow direction of inpatient medical and mental health team to determine best plan of care for patient. Rule 25 assessment discussed with patient, however based on this telegraphic typewriter mechanic's assessment and patient's disclosure, patient reports no [...] [facility]. Patient denies any current needs for a chemical health assessment or Rule 25. 5. collar worker engaged in safety planning conversation. a. [...] medical and mental health treatment team. 2. collar worker will continue to assist as needed [...] 50 minutes total time. Danny Newton 03/21/2021 ATRIC NEUROLOGIST Jean Paul M.D., M.P.H. - 03/21/2021 12:07 [...] while sitting in bed, eyes rolled back. TRACKWALKER called for help and upon RN entering room, noted pts arms tensing and shaking. CAR SHIFTER paged right away. VSS. Pt appearing sleepy upon telegraphic typewriter mechanic entering room and then after a couple [...] Plantar Response: R flexor L flexor Coordination: Sfnnxw-Gjxw-Mxiswz: Intact b/l ASSESSMENT / PLAN Patient Active [...] the date of the encounter. Time included [id number] interview and evaluation, counseling the patient, reviewing records, reviewing relevant diagnostic tests, ordering tests, documenting clinical information in the electronic records and communicating with other p roviders. PATIENT EDUCATION Ready to learn, no apparent learning barriers were identified; learning preferences include listening. Explained diagnosis and treatment plan; patient expressed understanding of the content. ATRIC NEUROLOGIST Sivakumar Reyes M.D. 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 We placed a oyuxmm-es-kztzu suture around the paracentesis site. [facility] of the ICU team. Procedure: 5 mL of 1% lidocaine were injected around the paracentesis site. A 2 0 Vicryl suture was used to place the a lqyuop-ti-ywhzm stitch around the paracentesis site This was [...] clinic and provider: ELSEWHERE, PCP Primary Language: Citizen Of [place] Warm In Worker Services Used: No Legal Information: Legal Decision [...] so this writercontacted the patient's mother Parris ([phone]) to complete a psychosocial assessment and to [...] Support System: Significant other,Parent,Family members Spirituality / Zoroastrian / Culture: , patient was raised Restorationism but does not currently attend uatsdin. 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 ASSISTIVE DEVICES Patient has the following equipment: Eyeglasses,Contacts Patient anticipates potentially needing the following additional equipment: None Transportation needs: Support from family SERVICES REQUESTED None ADVANCED ANALYTICS ASSOCIATE Formal and Informal Resources: Caregiver Name: Lobito Brunson Caregiver Relationship: Significant other Caregiver FINANCES/INSURANCE Primary insurance: [employer] Secondary insurance: N/A Income Information Does the [...] Suicide Risk and Safety Risk Assessment: The [place] Suicide Risk Severity Scale (C-SSRS) was unable [...] extended family/friends ASSESSMENT / PLAN IMPRESSION This telegraphic typewriter mechanic completed a psychosocial assessment of the patient [...] work at this time but thanked this telegraphic typewriter mechanic for the call. INTERVENTIONS 1. Psychosocial assessment completed. 2. Provided supportive services. 3. Provided education regarding the role of social work. 4. Provided education regarding referral resources and options. PLAN 1. Social Work will continue to follow and assist as needed or requested. Anticipated barriers to the transition of care/plan: None Светлана Guillen 03/13/2021 ATRIC NEUROLOGIST Sera Morgan P.A.-C. - 03/12/2021 12:50 PM [...] of cirrhosis with ascites who presents from [facility] being found unresponsive and incontinent at [...] (A) Bilirubin Moderate (A) pH 6.0 Specific Holcomb 1.016 Urobilinogen 1.0 MRSA PCR, Nasal Collection [...] plan at this time. Sera Morgan P.A.-C. ATRIC NEUROLOGIST Associated attestation - Leslie Hawk M.D. - 03/12/2021 2:37 PM PEDIATRIC NEUROLOGIST This is a supervisory note for gastroenterology [...] documented in this encounter Nursing Notes Hope Guerrier, R.N. - 03/24/2021 12:18 PM CST INPATIENT NURSING DISCHARGE SUMMARY Discharge Provider: No att. providers found Admission Date: 03/12/2021 Discharge Date: 03/24/2021 DISCHARGE DISPOSITION Home/Self Care CONDITION AT DISCHARGE stable TREATMENTS None DEVICES/EQUIPMENT None PROFESSIONAL SKILLED SERVICES None MODE OF DISCHARGE Ambulatory TRANSPORTATION Private Vehicle ACCOMPANIED BY Nurse Discharge paperwork discussed with pt and all questions answered. All belongings sent home with patient. ATRIC NEUROLOGIST Bernardo Rosario RSumaN. - 03/24/2021 4:20 AM CST Shift Goals: [...] of care to be continued by oncomingnurse. ATRIC NEUROLOGIST Hope Guerrier R.N. - 03/23/2021 4:32 PM [...] of blood today. Will continue withcurrent POC. ATRIC NEUROLOGIST Lisa Stinson R.N. - 03/23/2021 5:50 AM [...] Patient denies pain. Will continue to monitor. ATRIC NEUROLOGIST Carol Rodriguez R.N. - 03/22/2021 11:06 PM CST Shift Goals: Clinical Goals for the Shift: Patient will remain free from falls and get adequate rest Identify possible barriers to meeting goals/advancing plan of care: None End of Shift Summary: Patient slept intermittently throughout the shift and took a couple walks in the halls with the TRACKWALKER today. Pt reported having no abdominal pain [...] Emergency Response Team call for Anxiety,Agitation, at [facility]. I have reviewed the medical records, spoke with the patient's nurse, and met with the patient in person. Follow-Up Assessment: Procurement Cost Coordinator met with patient assigned nurse. Patient nurse [...] free to contact the MARILUZ RN at [phone], or in an emergent situation by activating the MARILUZ team through the hospital roto rooter operator by dialing 201. ATRIC NEUROLOGIST Nola Frederick - 03/22/2021 4:49 AM CST [...] melatonin and Zyprexa not given until 0100. ATRIC NEUROLOGIST Yajaira Faulkner RGabby - 03/21/2021 2:40 PM [...] plan for eeg today Interventions: remove from evaluator transfer students list Recommendations for primary RN: call for [...] primary nurse: Encouraged primary RN to call CAR SHIFTER with questions, concerns, or if patient condition [...] RN: Continue to monitor mental status, call CAR SHIFTER with any concerns Rapid RN will continue to monitor for: Will monitor for seizure like activity Patient Disposition: has improved Rapid RN following prior to transfer to higher level of care, if applicable: Offered debrief to primary nurse: Encouraged primary RN to call CAR SHIFTER with questions, concerns, or if patient condition changes. Bisi Kwong RGabby - 03/21/2021 6:38 AM CST Shift Goals: [...] labs. Will continue with plan of care. ATRIC NEUROLOGIST Priscilla Morelos R.N. - 03/20/2021 11:03 PM [...] while sitting in bed, eyes rolled back. TRACKWALKER called for help and upon RN entering room,noted pts arms tensing and shaking. CAR SHIFTER paged right away. VSS. Pt appearing sleepy upon telegraphic typewriter mechanic entering room and then after a couple [...] HS, had 4bms today. Continue to monitor. ATRIC NEUROLOGIST Tia Abbasi RGabby - 03/20/2021 10:38 PM CST MARILUZ Follow up: This is a follow up to the Behavioral Emergency Response Team call for Anxiety,Agitation, at [facility]. I have reviewed the medical records, [...] free to contact the MARILUZ RN at [phone], or in an emergent situation by activating the MARILUZ team through the hospital roto rooter operator by dialing 201. ATRIC NEUROLOGIST Grazyna Barroso RSumaN. - 03/20/2021 2:34 PM [...] Vitals remain stable, continue plan of care. ATRIC NEUROLOGIST Cathie Rae RSumaN. - 03/20/2021 1:34 PM CST MARILUZ Follow up: This is a follow up to the Behavioral Emergency Response Team call for Anxiety,Agitation, at [facility]. I have reviewed the medical records, [...] free to contact the MARILUZ RN at [phone], or in an emergent situation by activating the MARILUZ team through the hospital roto rooter operator by dialing 201. ATRIC NEUROLOGIST Tia Abbasi R.N. - 03/20/2021 6:49 AM CST MARILUZ Follow up: This is a follow up to the Behavioral Emergency Response Team call for Anxiety,Agitation, at [facility]. I have reviewed the medical records, spoke with the patient's nurse, and met with the patient in person. Follow-Up Assessment: No MARILUZ calls this shift. Will continue to follow. Follow-Up: ?? The MARILUZ RN will follow up during their next rounds on the day shift. If there are any questions or concerns, please feel free to contact the MARILUZ RN at [phone], or in an emergent situation by activating the MARILUZ team through the hospital roto rooter operator by dialing 201. ATRIC NEUROLOGIST Juan Palacios R.N. - 03/20/2021 4:14 AM [...] Emergency Response Team call for Anxiety,Agitation, at [facility]. I have reviewed the medical records, spoke with the patient's nurse, and met with the patient in person. Follow-Up Assessment: No requests for mariluz interventions today. Follow-Up: ?? The MARILUZ RN will follow up during their rounds on the evening shift. If there are any questions or concerns, please feel free to contact the MARILUZ RN at [phone], or in an emergent situation by activating the MARILUZ team through the hospital roto rooter operator by dialing 201. Grazyna Salazar R.N. [...] by: Virginie Stahl R.N. 03/19/21 7:38 AM PEDIATRIC NEUROLOGIST Criselda Heart R.N. - 03/18/2021 6:56 PM [...] Mariluz Date initiated : 03/18/21 Time initiated: 144 Initiated by: Nurse ASSESSMENT: Patient is a 30 y.o. female admitted to the [facility] for Change Mental Status Procurement Cost Coordinator called to pt room due to increased anxious behavior. Pt had refused her lactulose several times recently. Procurement Cost Coordinator observed while pt received the a dose this afternoon. Her speech was rapid and tangental. Pt became visibly anxious during and after taking the lactulose. Pt began to slur her words and stutter. Pt's pupils were equal, round, and reacted briskly. Motor function/sensation assessment was normal. After other staff left the room telegraphic typewriter mechanic talked with pt for a while and [...] was the sister or cousin of a TRACKWALKER. Procurement Cost Coordinator spent time validating pt's feelings and when she was much calmer telegraphic typewriter mechanic cleared from the situation. Individual Assignment prior [...] free to contact the MARILUZ RN at [phone], or in an emergent situation by activating the MARILUZ team through the hospital roto rooter operator by dialing 201. ATRIC NEUROLOGIST Virginie Stahl R.N. - 03/18/2021 4:10 AM [...] by: Virginie Stahl R.N. 03/18/21 6:07 AM PEDIATRIC NEUROLOGIST ATRIC NEUROLOGIST Criselda He R.N. - 03/17/2021 5:44 PM [...] at 1445. Will continue plan of care. ATRIC NEUROLOGIST Nola Frederick - 03/17/2021 5:37 AM CST [...] not call for assistance at any point. ATRIC NEUROLOGIST Hilda Bower R.N. - 03/16/2021 8:04 PM CST Shift Goals: Clinical Goals for the Shift: Monitor mental status and output Identify possible barriers to meeting goals/advancing plan of care: Liver disease End of Shift Summary: Status: Pt is in stable condition. Chatty today. Openly discussing emotions and difficulties r/t diagnosis. Continued teaching about diagnosis throughout shift. BoyfriendLobito, was here most of the day at [...] art line, cont to have 2 PIVs. ATRIC NEUROLOGIST Ricardo Rosado R.N. - 03/16/2021 4:28 AM [...] grateful. Replaced magnesium, calcium, potassium and phos. Hilda Magallanes R.N. - 03/15/2021 6:00 PM CST Shift [...] Has a right IJ and 2 PIVs. ATRIC NEUROLOGIST Ricardo Rosado R.N. - 03/15/2021 6:34 AM [...] Potassium, Magnesium and phos replaced this shift. ATRIC NEUROLOGIST Hilda Bower R.N. - 03/14/2021 6:45 PM [...] Has a right IJ and 2 PIVs. ATRIC NEUROLOGIST Sara Baxter R.N. - 03/13/2021 9:51 PM CST Shift Goals: Clinical Goals for the Shift: VSS, tolerate ventilator Identify possible barriers to meeting goals/advancing plan of care: Acuity of illness, ventilator patient End of Shift Summary: Patient tearful with turning, able to answer yes/no questions, and stated she was in pain. Propofol restarted for comfort overnight, currently on 25 mcg/kg/min, 0.5 mcg/kg/hr precedex. ATRIC NEUROLOGIST Diya Weiss R.N. - 03/13/2021 5:05 PM [...] titrated down with MAP goal (>65 per [employer]) achieved. Patient appear to have improving mental [...] by: Baldemar Evangelista R.N. 03/13/21 6:36 AM PEDIATRIC NEUROLOGIST ATRIC NEUROLOGIST Diya Weiss R.N. - 03/12/2021 3:00 PM [...] pelvis today. No family visiting this shift. [employer] updated patient's mother via phone call. ATRIC NEUROLOGIST Criselda Valentin R.N. - 03/12/2021 6:45 AM CST Pt direct admit from [place] to room 3411. Pt agitated, moaning, not [...] him to bring her to the ED. ATRIC NEUROLOGIST documented in this encounter Miscellaneous Notes Hospital [...] of FFP yesterday. She was transferred to [facility] 03/16. -- continue Lactulose titrate down [...] the course abx for community acquired pneumonia ATRIC NEUROLOGIST documented in this encounter Plan of Treatment Upcoming Encounters Date Type Specialty Care Team Description Telemedicine Transplant 2 Appointment Radiology Matthew Jerome 2 Y, Lilian Santillan [address] [place] [phone] Appointment Gastroenterology and Adrianne, 2 Hepatology Yue Burciaga M.D. [address] [place] [phone] Virtual Visit Transplant Matthew Jerome 2 Joshua RodriguezBSumaBLilian Bedolla [address] [place] [phone] Office Visit Gastroenterology and Matthew Jerome 2 Hepatology Joshua RodriguezBSumaBLilian Bedolla [address] [place] [phone] Appointment Radiology Matthew Jerome 2 Jennifer M.B.B.Lilian Stockton [address] [place] [phone] Hospital Gastroenterology and Queenie Matthew Cirrhos is Alcoholic (HCC) 2 Encounter Hepatology Joshua RodriguezBSumaBLilian Bedolla [address] [place] [phone] Anesthesia Event Gastroenterology and Rl, 2 Hepatology Ervin Burgos M.D. [address] [place] [phone] Surgery Gastroenterology and Matthew Jerome ESOPHAG OGASTRODUODENOSCOPY 2 Hepatology Jennifer M.B.B.Lilian Stockton [address] [place] [phone] Pending Results Name Type Priority Associated Diagnoses Date/Ti me Prepare Red Blood Cells, 1 Blood Bank Routine 1 05/12/2020 12:59 PM Units PEDIATRIC NEUROLOGIST Prepare Red Blood Cells, 1 Blood Bank Routine 1 05/12/2020 12:59 PM Units PEDIATRIC NEUROLOGIST Prepare Red Blood Cells, 1 Blood Bank Routine 1 05/12/2020 12:59 PM Units PEDIATRIC NEUROLOGIST Prepare Fresh Frozen Blood Bank Routine 12:06 PM Plasma : 2 Units PEDIATRIC NEUROLOGIST Transfuse Fresh Frozen Blood Bank Routine 03/15 3:52 PM Plasma :Bleeding with PEDIATRIC NEUROLOGIST altered coagulation; 180 mL/hr, 2 Units Prepare Red Blood Cells, 1 Blood Bank Routine 1 05/12/2020 12:59 PM Units PEDIATRIC NEUROLOGIST Prepare Fresh Frozen Blood Bank Routine 2:05 AM Plasma : 1 Units PEDIATRIC NEUROLOGIST Prepare Pooled Blood Bank Routine 03/16/2021 2: 05 AM Cryoprecipitate PEDIATRIC NEUROLOGIST Prepare Red Blood Cells, 1 Blood Bank STAT 1 05/16/2020 5:44 AM Units PEDIATRIC NEUROLOGIST Prepare Fresh Frozen Blood Bank STAT 5:44 AM Plasma : 2 Units PEDIATRIC NEUROLOGIST Prepare Red Blood Cells, 2 Blood Bank STAT 1 05/16/2020 5:44 AM Units PEDIATRIC NEUROLOGIST Prepare Red Blood Cells, 1 Blood Bank STAT 1 05/16/2020 5:44 AM Units PEDIATRIC NEUROLOGIST Prepare Fresh Frozen Blood Bank STAT 5:44 AM Plasma : 1 Units PEDIATRIC NEUROLOGIST Patient Status Lab Routine 03/20/2021 7: 40 AM PEDIATRIC NEUROLOGIST Prepare Red Blood Cells, 1 Blood Bank Routine 1 05/23/2020 1:12 PM Units PEDIATRIC NEUROLOGIST Scheduled Procedures Name Priority Associated Diagnoses Date/Time ESOPHAGOGASTRODUODENOSCOPY Cirrhosis Alc oholic (HCC) 03/20/2022 8:45 AM PEDIATRIC NEUROLOGIST Hypertension Portal (HCC) Scheduled Referrals Name Type Priority Associated Order Schedule Diagnoses Gastroenterology and Outpatient Routine Expecte d: Hepatology office visit Referral 03/03 (clinic) (Approximate), Expires: 03/15/2024 documented as of this encounter Procedures Procedure Name Priority Date/Time Associated Comments Diagnosis VITAMIN A AND VITAMIN Routine 03/24/2021 6:15 Res ults for E, S AM PEDIATRIC NEUROLOGIST this procedure are in the results section. ZINC, S Routine 03/24/2021 6:15 Results for AM PEDIATRIC NEUROLOGIST this procedure are in the results section. PROTHROMBIN TIME (PT), Routine 03/24/2021 6:15 Re sults for P AM PEDIATRIC NEUROLOGIST this procedure are in the results section. CBC WITHOUT Routine 03/24/2021 6:15 Results for DIFFERENTIAL, B AM PEDIATRIC NEUROLOGIST this procedu re are in the results section. COMPREHENSIVE Routine 03/24/2021 6:15 Results for METABOLIC PANEL, S/P AM PEDIATRIC NEUROLOGIST this pr ocedure are in the results section. TRANSFUSE RED BLOOD Routine 03/23/2021 3:21 CELLS PM PEDIATRIC NEUROLOGIST TESTING LOCATION Routine 03/23/2021 1:12 Results for PM PEDIATRIC NEUROLOGIST this procedure are in the results section. PREPARE RED BLOOD Routine 03/23/2021 1:12 CELLS PM PEDIATRIC NEUROLOGIST TYPE AND SCREEN Routine 03/23/2021 1:12 Results f or PM PEDIATRIC NEUROLOGIST this procedure are in the results section. ADULT OXYGEN THERAPY Routine 03/23/2021 8:00 AM PEDIATRIC NEUROLOGIST PULSE OXIMETRY, Routine 03/23/2021 8:00 CONTINUOUS AM PEDIATRIC NEUROLOGIST PROTHROMBIN TIME (PT), Routine 03/23/2021 6:43 Re sults for P AM PEDIATRIC NEUROLOGIST this procedure are in the results section. CBC WITHOUT Routine 03/23/2021 6:43 Results for DIFFERENTIAL, B AM PEDIATRIC NEUROLOGIST this procedu re are in the results section. PHOSPHORUS Routine 03/23/2021 6:43 Results for (INORGANIC), S AM PEDIATRIC NEUROLOGIST this procedur e are in the results section. MAGNESIUM, S Routine 03/23/2021 6:43 Results for AM PEDIATRIC NEUROLOGIST this procedure are in the results section. COMPREHENSIVE Routine 03/23/2021 6:43 Results for METABOLIC PANEL, S/P AM PEDIATRIC NEUROLOGIST this pr ocedure are in the results section. ADULT OXYGEN THERAPY Routine 03/22/2021 8:00 PM PEDIATRIC NEUROLOGIST PULSE OXIMETRY, Routine 03/22/2021 8:00 CONTINUOUS PM PEDIATRIC NEUROLOGIST LACTATE, B Routine 03/22/2021 8:38 Results for AM PEDIATRIC NEUROLOGIST this procedure are in the results section. PROTHROMBIN TIME (PT), Routine 03/22/2021 8:38 Re sults for P AM PEDIATRIC NEUROLOGIST this procedure are in the results section. CBC WITHOUT Routine 03/22/2021 8:38 Results for DIFFERENTIAL, B AM PEDIATRIC NEUROLOGIST this procedu re are in the results section. AMMONIA Routine 03/22/2021 8:38 Results for AM PEDIATRIC NEUROLOGIST this procedure are in the results section. COMPREHENSIVE Routine 03/22/2021 8:38 Results for METABOLIC PANEL, S/P AM PEDIATRIC NEUROLOGIST this pr ocedure are in the results section. PHOSPHORUS Routine 03/22/2021 8:33 Results for (INORGANIC), S AM PEDIATRIC NEUROLOGIST this procedur e are in the results section. MAGNESIUM, S Routine 03/22/2021 8:33 Results for AM PEDIATRIC NEUROLOGIST this procedure are in the results section. ADULT OXYGEN THERAPY Routine 03/22/2021 8:00 AM PEDIATRIC NEUROLOGIST PULSE OXIMETRY, Routine 03/22/2021 8:00 CONTINUOUS AM PEDIATRIC NEUROLOGIST ADULT OXYGEN THERAPY Routine 03/21/2021 8:01 PM PEDIATRIC NEUROLOGIST PULSE OXIMETRY, Routine 03/21/2021 8:01 CONTINUOUS PM PEDIATRIC NEUROLOGIST EEG ROUTINE - AWAKE Routine 03/21/2021 4:43 Resul ts for AND SLEEP PM PEDIATRIC NEUROLOGIST this procedure are in the results section. CT ABDOMEN PELVIS RAD - Routine 03/21/2021 Results f or WITHOUT IV CONTRAST (most inpatients 12:42 PM PEDIATRIC NEUROLOGIST this procedure and all are in the outpatients) results section. CT HEAD WITHOUT IV RAD - Routine 03/21/2021 Results for CONTRAST (most inpatients 12:42 PM PEDIATRIC NEUROLOGIST this proced ure and all are in the outpatients) results section. ECG Routine 03/21/2021 Results for 10:06 AM PEDIATRIC NEUROLOGIST this procedure are in the results section. ADULT OXYGEN THERAPY Routine 03/21/2021 8:01 AM PEDIATRIC NEUROLOGIST PULSE OXIMETRY, Routine 03/21/2021 8:01 CONTINUOUS AM PEDIATRIC NEUROLOGIST COMPREHENSIVE Routine 03/21/2021 5:44 Results for METABOLIC PANEL, S/P AM PEDIATRIC NEUROLOGIST this pr ocedure are in the results section. LACTATE, B Routine 03/21/2021 5:43 Results for AM PEDIATRIC NEUROLOGIST this procedure are in the results section. PROTHROMBIN TIME (PT), Routine 03/21/2021 5:43 Re sults for P AM PEDIATRIC NEUROLOGIST this procedure are in the results section. CBC WITHOUT Routine 03/21/2021 5:43 Results for DIFFERENTIAL, B AM PEDIATRIC NEUROLOGIST this procedu re are in the results section. LACTATE, B Timed 03/20/2021 Results for 10:32 PM PEDIATRIC NEUROLOGIST this procedure are in the results section. CBC WITH DIFFERENTIAL, Timed 03/20/2021 Resul ts for B 10:32 PM PEDIATRIC NEUROLOGIST this procedure are in the results section. CREATINE KINASE (CK), Timed 03/20/2021 Result s for S 10:32 PM PEDIATRIC NEUROLOGIST this procedure are in the results section. AMMONIA Timed 03/20/2021 Results for 10:32 PM PEDIATRIC NEUROLOGIST this procedure are in the results section. COMPREHENSIVE Timed 03/20/2021 Results for METABOLIC PANEL, S/P 10:32 PM PEDIATRIC NEUROLOGIST this pr ocedure are in the results section. GLUCOSE POCT, B Routine 03/20/2021 9:03 Results f or PM PEDIATRIC NEUROLOGIST this procedure are in the results section. ADULT OXYGEN THERAPY Routine 03/20/2021 8:01 PM PEDIATRIC NEUROLOGIST PULSE OXIMETRY, Routine 03/20/2021 8:01 CONTINUOUS PM PEDIATRIC NEUROLOGIST ADULT OXYGEN THERAPY Routine 03/20/2021 8:01 AM PEDIATRIC NEUROLOGIST PULSE OXIMETRY, Routine 03/20/2021 8:01 CONTINUOUS AM PEDIATRIC NEUROLOGIST LACTATE, B Routine 03/20/2021 7:40 Results for AM PEDIATRIC NEUROLOGIST this procedure are in the results section. PH BLOOD GAS Routine 03/20/2021 7:40 Results for AM PEDIATRIC NEUROLOGIST this procedure are in the results section. PROTHROMBIN TIME (PT), Routine 03/20/2021 7:40 Re sults for P AM PEDIATRIC NEUROLOGIST this procedure are in the results section. CBC WITHOUT Routine 03/20/2021 7:40 Results for DIFFERENTIAL, B AM PEDIATRIC NEUROLOGIST this procedu re are in the results section. PHOSPHORUS Routine 03/20/2021 7:40 Results for (INORGANIC), S AM PEDIATRIC NEUROLOGIST this procedur e are in the results section. MAGNESIUM, S Routine 03/20/2021 7:40 Results for AM PEDIATRIC NEUROLOGIST this procedure are in the results section. VENOUS BLOOD GAS Routine 03/20/2021 7:40 Results for W/COOX, B AM PEDIATRIC NEUROLOGIST this procedure are in the results section. CALCIUM, IONIZED, S/B Routine 03/20/2021 7:40 Res ults for AM PEDIATRIC NEUROLOGIST this procedure are in the results section. COMPREHENSIVE Routine 03/20/2021 7:40 Results for METABOLIC PANEL, S/P AM PEDIATRIC NEUROLOGIST this pr ocedure are in the results section. ADULT OXYGEN THERAPY Routine 03/19/2021 8:01 PM PEDIATRIC NEUROLOGIST PULSE OXIMETRY, Routine 03/19/2021 8:01 CONTINUOUS PM PEDIATRIC NEUROLOGIST TRANSFUSE FRESH FROZEN Routine 03/19/2021 5:08 PLASMA PM PEDIATRIC NEUROLOGIST PH BLOOD GAS Routine 03/19/2021 3:04 Results for PM PEDIATRIC NEUROLOGIST this procedure are in the results section. 25-HYDROXYVITAMIN D2 Routine 03/19/2021 3:04 Resu lts for AND D3, S PM PEDIATRIC NEUROLOGIST this procedure are in the results section. POTASSIUM, S/P Timed 03/19/2021 3:04 Results fo r PM PEDIATRIC NEUROLOGIST this procedure are in the results section. PARATHYROID HORMONE Routine 03/19/2021 3:04 Resul ts for (PTH), S PM PEDIATRIC NEUROLOGIST this procedure are in the results section. CALCIUM, IONIZED, S/B Routine 03/19/2021 3:04 Res ults for PM PEDIATRIC NEUROLOGIST this procedure are in the results section. TRANSFUSE RED BLOOD Routine 03/19/2021 CELLS 12:49 PM PEDIATRIC NEUROLOGIST (TTE) 2D ECHO DOPPLER Routine 03/19/2021 Result s for COLOR AND CONTRAST 12:39 PM PEDIATRIC NEUROLOGIST this proc edure are in the results section. ADULT OXYGEN THERAPY Routine 03/19/2021 8:01 AM PEDIATRIC NEUROLOGIST PULSE OXIMETRY, Routine 03/19/2021 8:01 CONTINUOUS AM PEDIATRIC NEUROLOGIST PROTHROMBIN TIME (PT), Routine 03/19/2021 7:39 Re sults for P AM PEDIATRIC NEUROLOGIST this procedure are in the results section. CBC WITH DIFFERENTIAL, Routine 03/19/2021 7:39 Re sults for B AM PEDIATRIC NEUROLOGIST this procedure are in the results section. PHOSPHORUS Routine 03/19/2021 7:39 Results for (INORGANIC), S AM PEDIATRIC NEUROLOGIST this procedur e are in the results section. MAGNESIUM, S Routine 03/19/2021 7:39 Results for AM PEDIATRIC NEUROLOGIST this procedure are in the results section. AMMONIA Routine 03/19/2021 7:39 Results for AM PEDIATRIC NEUROLOGIST this procedure are in the results section. COMPREHENSIVE Routine 03/19/2021 7:39 Results for METABOLIC PANEL, S/P AM PEDIATRIC NEUROLOGIST this pr ocedure are in the results section. BILIRUBIN DIRECT, S/P Routine 03/19/2021 7:38 Res ults for AM PEDIATRIC NEUROLOGIST this procedure are in the results section. ECG Routine 03/19/2021 6:44 Results for AM PEDIATRIC NEUROLOGIST this procedure are in the results section. ADULT OXYGEN THERAPY Routine 03/18/2021 8:01 PM PEDIATRIC NEUROLOGIST PULSE OXIMETRY, Routine 03/18/2021 8:01 CONTINUOUS PM PEDIATRIC NEUROLOGIST HEMOGLOBIN, B Routine 03/18/2021 7:00 Results for PM PEDIATRIC NEUROLOGIST this procedure are in the results section. AMMONIA Routine 03/18/2021 6:59 Results for PM PEDIATRIC NEUROLOGIST this procedure are in the results section. PROTHROMBIN TIME (PT), Routine 03/18/2021 8:35 Re sults for P AM PEDIATRIC NEUROLOGIST this procedure are in the results section. CBC WITH DIFFERENTIAL, Routine 03/18/2021 8:35 Re sults for B AM PEDIATRIC NEUROLOGIST this procedure are in the results section. COMPREHENSIVE Routine 03/18/2021 8:35 Results for METABOLIC PANEL, S/P AM PEDIATRIC NEUROLOGIST this pr ocedure are in the results section. ADULT OXYGEN THERAPY Routine 03/18/2021 8:02 AM PEDIATRIC NEUROLOGIST PULSE OXIMETRY, Routine 03/18/2021 8:02 CONTINUOUS AM PEDIATRIC NEUROLOGIST ADULT OXYGEN THERAPY Routine 03/17/2021 8:01 PM PEDIATRIC NEUROLOGIST PULSE OXIMETRY, Routine 03/17/2021 8:01 CONTINUOUS PM PEDIATRIC NEUROLOGIST ADULT OXYGEN THERAPY Routine 03/17/2021 8:01 AM PEDIATRIC NEUROLOGIST PULSE OXIMETRY, Routine 03/17/2021 8:01 CONTINUOUS AM PEDIATRIC NEUROLOGIST CBC WITH DIFFERENTIAL, Routine 03/17/2021 6:35 Re sults for B AM PEDIATRIC NEUROLOGIST this procedure are in the results section. MAGNESIUM, S Routine 03/17/2021 6:35 Results for AM PEDIATRIC NEUROLOGIST this procedure are in the results section. BASIC METABOLIC PANEL, Routine 03/17/2021 6:35 Re sults for S/P AM PEDIATRIC NEUROLOGIST this procedure are in the results section. ADULT OXYGEN THERAPY Routine 03/16/2021 8:00 PM PEDIATRIC NEUROLOGIST PULSE OXIMETRY, Routine 03/16/2021 8:00 CONTINUOUS PM PEDIATRIC NEUROLOGIST HEMOGLOBIN, B Timed 03/16/2021 4:14 Results for PM PEDIATRIC NEUROLOGIST this procedure are in the results section. HEMATOCRIT, B Timed 03/16/2021 4:14 Results for PM PEDIATRIC NEUROLOGIST this procedure are in the results section. HEMOGLOBIN, B STAT 03/16/2021 Results for 12:58 PM PEDIATRIC NEUROLOGIST this procedure are in the results section. HEMATOCRIT, B STAT 03/16/2021 Results for 12:58 PM PEDIATRIC NEUROLOGIST this procedure are in the results section. TRANSFUSE RED BLOOD Routine 03/16/2021 CELLS 11:13 AM PEDIATRIC NEUROLOGIST TRANSFUSE RED BLOOD Routine 03/16/2021 CELLS 10:32 AM PEDIATRIC NEUROLOGIST TRANSFUSE FRESH FROZEN Routine 03/16/2021 9:58 PLASMA AM PEDIATRIC NEUROLOGIST TRANSFUSE FRESH FROZEN Routine 03/16/2021 9:20 PLASMA AM PEDIATRIC NEUROLOGIST ADULT OXYGEN THERAPY Routine 03/16/2021 8:00 AM PEDIATRIC NEUROLOGIST PULSE OXIMETRY, Routine 03/16/2021 8:00 CONTINUOUS AM PEDIATRIC NEUROLOGIST TRANSFUSE RED BLOOD Routine 03/16/2021 7:35 CELLS AM PEDIATRIC NEUROLOGIST ACTIVATED PARTIAL STAT 03/16/2021 7:32 Results for THROMBOPLASTIN TIME AM PEDIATRIC NEUROLOGIST this pro cedure (APTT), P are in the results section. PROTHROMBIN TIME (PT), STAT 03/16/2021 7:32 Re sults for P AM PEDIATRIC NEUROLOGIST this procedure are in the results section. FIBRINOGEN, P STAT 03/16/2021 7:32 Results for AM PEDIATRIC NEUROLOGIST this procedure are in the results section. HEMOGLOBIN, B STAT 03/16/2021 7:31 Results for AM PEDIATRIC NEUROLOGIST this procedure are in the results section. TESTING LOCATION STAT 03/16/2021 5:44 Results for AM PEDIATRIC NEUROLOGIST this procedure are in the results section. PREPARE FRESH FROZEN STAT 03/16/2021 5:44 PLASMA AM PEDIATRIC NEUROLOGIST PREPARE FRESH FROZEN STAT 03/16/2021 5:44 PLASMA AM PEDIATRIC NEUROLOGIST PREPARE RED BLOOD STAT 03/16/2021 5:44 CELLS AM PEDIATRIC NEUROLOGIST PREPARE RED BLOOD STAT 03/16/2021 5:44 CELLS AM PEDIATRIC NEUROLOGIST PREPARE RED BLOOD STAT 03/16/2021 5:44 CELLS AM PEDIATRIC NEUROLOGIST TYPE AND SCREEN STAT 03/16/2021 5:44 Results f or AM PEDIATRIC NEUROLOGIST this procedure are in the results section. GLUCOSE POCT, B Routine 03/16/2021 5:43 Results f or AM PEDIATRIC NEUROLOGIST this procedure are in the results section. PH BLOOD GAS Routine 03/16/2021 4:57 Results for AM PEDIATRIC NEUROLOGIST this procedure are in the results section. CALCIUM, IONIZED, S/B Routine 03/16/2021 4:57 Res ults for AM PEDIATRIC NEUROLOGIST this procedure are in the results section. CBC WITHOUT Timed 03/16/2021 4:21 Results for DIFFERENTIAL, B AM PEDIATRIC NEUROLOGIST this procedu re are in the results section. PHOSPHORUS Timed 03/16/2021 4:21 Results for (INORGANIC), S AM PEDIATRIC NEUROLOGIST this procedur e are in the results section. MAGNESIUM, S Timed 03/16/2021 4:21 Results for AM PEDIATRIC NEUROLOGIST this procedure are in the results section. COMPREHENSIVE Timed 03/16/2021 4:21 Results for METABOLIC PANEL, S/P AM PEDIATRIC NEUROLOGIST this pr ocedure are in the results section. TRANSFUSE FRESH FROZEN Routine 03/16/2021 3:30 PLASMA AM PEDIATRIC NEUROLOGIST TRANSFUSE Routine 03/16/2021 3:18 CRYOPRECIPITATE AM PEDIATRIC NEUROLOGIST TRANSFUSE Routine 03/16/2021 2:42 CRYOPRECIPITATE AM PEDIATRIC NEUROLOGIST CT ABDOMEN PELVIS WITH RAD - Routine 03/16/2021 2:36 R esults for IV CONTRAST (most inpatients AM PEDIATRIC NEUROLOGIST this proced ure and all are in the outpatients) results section. TEST, POCT, Routine 03/16/2021 2:11 Res ults for U (LAB) AM PEDIATRIC NEUROLOGIST this procedure are in the results section. PREPARE FRESH FROZEN Routine 03/16/2021 2:05 PLASMA AM PEDIATRIC NEUROLOGIST PREPARE Routine 03/16/2021 2:05 CRYOPRECIPITATE AM PEDIATRIC NEUROLOGIST ACTIVATED PARTIAL STAT 03/16/2021 1:11 Results for THROMBOPLASTIN TIME AM PEDIATRIC NEUROLOGIST this pro cedure (APTT), P are in the results section. PROTHROMBIN TIME (PT), STAT 03/16/2021 1:11 Re sults for P AM PEDIATRIC NEUROLOGIST this procedure are in the results section. FIBRINOGEN, P STAT 03/16/2021 1:11 Results for AM PEDIATRIC NEUROLOGIST this procedure are in the results section. HEMOGLOBIN, B Timed 03/16/2021 Results for 12:08 AM PEDIATRIC NEUROLOGIST this procedure are in the results section. POTASSIUM, S/P Routine 03/16/2021 Results for 12:08 AM PEDIATRIC NEUROLOGIST this procedure are in the results section. GLUCOSE POCT, B Routine 03/15/2021 Results for 11:33 PM PEDIATRIC NEUROLOGIST this procedure are in the results section. TRANSFUSE RED BLOOD Routine 03/15/2021 9:33 CELLS PM PEDIATRIC NEUROLOGIST HEMOGLOBIN, B Timed 03/15/2021 8:11 Results for PM PEDIATRIC NEUROLOGIST this procedure are in the results section. ADULT OXYGEN THERAPY Routine 03/15/2021 8:01 PM PEDIATRIC NEUROLOGIST PULSE OXIMETRY, Routine 03/15/2021 8:01 CONTINUOUS PM PEDIATRIC NEUROLOGIST HEMOGLOBIN, B Timed 03/15/2021 4:52 Results for PM PEDIATRIC NEUROLOGIST this procedure are in the results section. HEMATOCRIT, B Timed 03/15/2021 4:52 Results for PM PEDIATRIC NEUROLOGIST this procedure are in the results section. TRANSFUSE FRESH FROZEN Routine 03/15/2021 3:52 PLASMA PM PEDIATRIC NEUROLOGIST HEMOGLOBIN, B Timed 03/15/2021 2:29 Results for PM PEDIATRIC NEUROLOGIST this procedure are in the results section. HEMATOCRIT, B Timed 03/15/2021 2:29 Results for PM PEDIATRIC NEUROLOGIST this procedure are in the results section. PHOSPHORUS Routine 03/15/2021 2:29 Results for (INORGANIC), S PM PEDIATRIC NEUROLOGIST this procedur e are in the results section. MAGNESIUM, S Routine 03/15/2021 2:29 Results for PM PEDIATRIC NEUROLOGIST this procedure are in the results section. BASIC METABOLIC PANEL, Timed 03/15/2021 2:29 Re sults for S/P PM PEDIATRIC NEUROLOGIST this procedure are in the results section. RESPIRATORY ASSESS AND Routine 03/15/2021 2:00 TREAT PM PEDIATRIC NEUROLOGIST TRANSFUSE FRESH FROZEN Routine 03/15/2021 1:47 PLASMA PM PEDIATRIC NEUROLOGIST PREPARE FRESH FROZEN Routine 03/15/2021 PLASMA 12:06 PM PEDIATRIC NEUROLOGIST GLUCOSE POCT, B Routine 03/15/2021 Results for 11:57 AM PEDIATRIC NEUROLOGIST this procedure are in the results section. TRANSFUSE RED BLOOD Routine 03/15/2021 CELLS 11:00 AM PEDIATRIC NEUROLOGIST ADULT OXYGEN THERAPY Routine 03/15/2021 8:01 AM PEDIATRIC NEUROLOGIST PULSE OXIMETRY, Routine 03/15/2021 8:01 CONTINUOUS AM PEDIATRIC NEUROLOGIST GLUCOSE POCT, B Routine 03/15/2021 6:14 Results f or AM PEDIATRIC NEUROLOGIST this procedure are in the results section. PROTHROMBIN TIME (PT), Routine 03/15/2021 4:18 Re sults for P AM PEDIATRIC NEUROLOGIST this procedure are in the results section. CBC WITHOUT Routine 03/15/2021 4:18 Results for DIFFERENTIAL, B AM PEDIATRIC NEUROLOGIST this procedu re are in the results section. PHOSPHORUS Routine 03/15/2021 4:18 Results for (INORGANIC), S AM PEDIATRIC NEUROLOGIST this procedur e are in the results section. MAGNESIUM, S Routine 03/15/2021 4:18 Results for AM PEDIATRIC NEUROLOGIST this procedure are in the results section. COMPREHENSIVE Routine 03/15/2021 4:18 Results for METABOLIC PANEL, S/P AM PEDIATRIC NEUROLOGIST this pr ocedure are in the results section. GLUCOSE POCT, B Routine 03/14/2021 Results for 11:43 PM PEDIATRIC NEUROLOGIST this procedure are in the results section. ADULT OXYGEN THERAPY Routine 03/14/2021 8:01 PM PEDIATRIC NEUROLOGIST PULSE OXIMETRY, Routine 03/14/2021 8:01 CONTINUOUS PM PEDIATRIC NEUROLOGIST GLUCOSE POCT, B Routine 03/14/2021 6:25 Results f or PM PEDIATRIC NEUROLOGIST this procedure are in the results section. RESPIRATORY ASSESS AND Routine 03/14/2021 2:00 TREAT PM PEDIATRIC NEUROLOGIST GLUCOSE POCT, B Routine 03/14/2021 Results for 11:32 AM PEDIATRIC NEUROLOGIST this procedure are in the results section. PATIENT STATUS STAT 03/14/2021 Results for 11:00 AM PEDIATRIC NEUROLOGIST this procedure are in the results section. ABG W/COOX STAT 03/14/2021 Results for 11:00 AM PEDIATRIC NEUROLOGIST this procedure are in the results section. PROTHROMBIN TIME (PT), Routine 03/14/2021 9:22 Re sults for P AM PEDIATRIC NEUROLOGIST this procedure are in the results section. ADULT OXYGEN THERAPY Routine 03/14/2021 8:01 AM PEDIATRIC NEUROLOGIST PULSE OXIMETRY, Routine 03/14/2021 8:01 CONTINUOUS AM PEDIATRIC NEUROLOGIST GLUCOSE POCT, B Routine 03/14/2021 6:28 Results f or AM PEDIATRIC NEUROLOGIST this procedure are in the results section. PATIENT STATUS Routine 03/14/2021 5:41 Results fo r AM PEDIATRIC NEUROLOGIST this procedure are in the results section. PH BLOOD GAS Routine 03/14/2021 5:41 Results for AM PEDIATRIC NEUROLOGIST this procedure are in the results section. ABG W/COOX Routine 03/14/2021 5:41 Results for AM PEDIATRIC NEUROLOGIST this procedure are in the results section. CBC WITHOUT Routine 03/14/2021 5:41 Results for DIFFERENTIAL, B AM PEDIATRIC NEUROLOGIST this procedu re are in the results section. PHOSPHORUS Routine 03/14/2021 5:41 Results for (INORGANIC), S AM PEDIATRIC NEUROLOGIST this procedur e are in the results section. MAGNESIUM, S Routine 03/14/2021 5:41 Results for AM PEDIATRIC NEUROLOGIST this procedure are in the results section. CALCIUM, IONIZED, S/B Routine 03/14/2021 5:41 Res ults for AM PEDIATRIC NEUROLOGIST this procedure are in the results section. BASIC METABOLIC PANEL, Routine 03/14/2021 5:41 Re sults for S/P AM PEDIATRIC NEUROLOGIST this procedure are in the results section. HEPATIC FUNCTION Routine 03/14/2021 5:40 Results for PANEL, S AM PEDIATRIC NEUROLOGIST this procedure are in the results section. DX CHEST PORTABLE 1 RAD - Routine 03/14/2021 4:33 Resu lts for VIEW (most inpatients AM PEDIATRIC NEUROLOGIST this proced ure and all are in the outpatients) results section. GLUCOSE POCT, B Routine 03/14/2021 Results for 12:06 AM PEDIATRIC NEUROLOGIST this procedure are in the results section. ADULT OXYGEN THERAPY Routine 03/13/2021 8:01 PM PEDIATRIC NEUROLOGIST PULSE OXIMETRY, Routine 03/13/2021 8:01 CONTINUOUS PM PEDIATRIC NEUROLOGIST HEMOGLOBIN, B Routine 03/13/2021 6:29 Results for PM PEDIATRIC NEUROLOGIST this procedure are in the results section. GLUCOSE POCT, B Routine 03/13/2021 6:16 Results f or PM PEDIATRIC NEUROLOGIST this procedure are in the results section. HEMOGLOBIN, B Routine 03/13/2021 4:28 Results for PM PEDIATRIC NEUROLOGIST this procedure are in the results section. MECHANICAL VENTILATOR Routine 03/13/2021 4:00 PM PEDIATRIC NEUROLOGIST RESPIRATORY ASSESS AND Routine 03/13/2021 2:00 TREAT PM PEDIATRIC NEUROLOGIST MECHANICAL VENTILATOR Routine 03/13/2021 12:00 PM PEDIATRIC NEUROLOGIST GLUCOSE POCT, B Routine 03/13/2021 Results for 11:46 AM PEDIATRIC NEUROLOGIST this procedure are in the results section. TRANSFUSE RED BLOOD Routine 03/13/2021 CELLS 10:11 AM PEDIATRIC NEUROLOGIST IRON AND TOT Routine 03/13/2021 8:28 Results for IRON-BINDING CAPACITY, AM PEDIATRIC NEUROLOGIST this procedure S/P are in the results section. FOLATE, S Routine 03/13/2021 8:28 Results for AM PEDIATRIC NEUROLOGIST this procedure are in the results section. FERRITIN, S Routine 03/13/2021 8:28 Results for AM PEDIATRIC NEUROLOGIST this procedure are in the results section. VITAMIN B12 ASSAY, S Routine 03/13/2021 8:28 Resu lts for AM PEDIATRIC NEUROLOGIST this procedure are in the results section. ADULT OXYGEN THERAPY Routine 03/13/2021 8:01 AM PEDIATRIC NEUROLOGIST PULSE OXIMETRY, Routine 03/13/2021 8:01 CONTINUOUS AM PEDIATRIC NEUROLOGIST MECHANICAL VENTILATOR Routine 03/13/2021 8:01 AM PEDIATRIC NEUROLOGIST PATIENT STATUS Routine 03/13/2021 5:37 Results fo r AM PEDIATRIC NEUROLOGIST this procedure are in the results section. ABG W/COOX Routine 03/13/2021 5:37 Results for AM PEDIATRIC NEUROLOGIST this procedure are in the results section. CBC WITH DIFFERENTIAL, Routine 03/13/2021 5:37 Re sults for B AM PEDIATRIC NEUROLOGIST this procedure are in the results section. TRIGLYCERIDES, S Routine 03/13/2021 5:37 Results for AM PEDIATRIC NEUROLOGIST this procedure are in the results section. PHOSPHORUS Routine 03/13/2021 5:37 Results for (INORGANIC), S AM PEDIATRIC NEUROLOGIST this procedur e are in the results section. MAGNESIUM, S Routine 03/13/2021 5:37 Results for AM PEDIATRIC NEUROLOGIST this procedure are in the results section. AMMONIA Routine 03/13/2021 5:37 Results for AM PEDIATRIC NEUROLOGIST this procedure are in the results section. COMPREHENSIVE Routine 03/13/2021 5:37 Results for METABOLIC PANEL, S/P AM PEDIATRIC NEUROLOGIST this pr ocedure are in the results section. DX CHEST PORTABLE 1 RAD - Routine 03/13/2021 4:32 Resu lts for VIEW (most inpatients AM PEDIATRIC NEUROLOGIST this proced ure and all are in the outpatients) results section. MECHANICAL VENTILATOR Routine 03/13/2021 4:00 AM PEDIATRIC NEUROLOGIST BASIC METABOLIC PANEL, Timed 03/13/2021 1:20 Re sults for S/P AM PEDIATRIC NEUROLOGIST this procedure are in the results section. HEMOGLOBIN, B Timed 03/13/2021 Results for 12:11 AM PEDIATRIC NEUROLOGIST this procedure are in the results section. MECHANICAL VENTILATOR Routine 03/13/2021 12:04 AM PEDIATRIC NEUROLOGIST GLUCOSE POCT, B Routine 03/12/2021 Results for 11:44 PM PEDIATRIC NEUROLOGIST this procedure are in the results section. ETHYL GLUCURONIDE SCRN Routine 03/12/2021 Resul ts for W/REFLEX, U 11:12 PM PEDIATRIC NEUROLOGIST this procedure are in the results section. LDA ANE ENDOTRACHEAL Routine 03/12/2021 Change Mental Result s for AIRWAY 10:30 PM PEDIATRIC NEUROLOGIST Status this procedure Cirrhosis are in the Alcoholic (HCC) results section. ND INTUB W ETT Routine 03/12/2021 Change Mental Results for 10:30 PM PEDIATRIC NEUROLOGIST Status this procedure Cirrhosis are in the Alcoholic (HCC) results section. ADULT OXYGEN THERAPY Routine 03/12/2021 8:01 PM PEDIATRIC NEUROLOGIST PULSE OXIMETRY, Routine 03/12/2021 8:01 CONTINUOUS PM PEDIATRIC NEUROLOGIST MECHANICAL VENTILATOR Routine 03/12/2021 8:01 PM PEDIATRIC NEUROLOGIST GLUCOSE POCT, B Routine 03/12/2021 6:11 Results f or PM PEDIATRIC NEUROLOGIST this procedure are in the results section. ND PARACENTESIS ABD WO Routine 03/12/2021 6:02 Change Mental R esults for IMG PM PEDIATRIC NEUROLOGIST Status this procedure Cirrhosis are in the Alcoholic (HCC) results section. THORACENTESIS Routine 03/12/2021 6:02 Change Mental Results fo r PM PEDIATRIC NEUROLOGIST Status this procedure Cirrhosis are in the Alcoholic (HCC) results section. MC ANE CENTRAL LINE Routine 03/12/2021 6:02 Change Mental Resu lts for GENERIC PERFORMABLE PM PEDIATRIC NEUROLOGIST Status this procedure Cirrhosis are in the Alcoholic (HCC) results section. LDA ANE CENTRAL LINE Routine 03/12/2021 6:02 Change Mental Res ults for TRIPLE LUMEN PM PEDIATRIC NEUROLOGIST Status this procedure Cirrhosis are in the Alcoholic (HCC) results section. ND US GUIDE VASC Routine 03/12/2021 6:02 Change Mental Results for ACCESS PM PEDIATRIC NEUROLOGIST Status this procedure Cirrhosis are in the Alcoholic (HCC) results section. ND INS NON-ALEN CVC Routine 03/12/2021 6:02 Change Mental Resul ts for >5YR PM PEDIATRIC NEUROLOGIST Status this procedure Cirrhosis are in the Alcoholic (HCC) results section. PH BLOOD GAS STAT 03/12/2021 5:35 Results for PM PEDIATRIC NEUROLOGIST this procedure are in the results section. HEMOGLOBIN, B STAT 03/12/2021 5:35 Results for PM PEDIATRIC NEUROLOGIST this procedure are in the results section. PHOSPHORUS STAT 03/12/2021 5:35 Results for (INORGANIC), S PM PEDIATRIC NEUROLOGIST this procedur e are in the results section. MAGNESIUM, S STAT 03/12/2021 5:35 Results for PM PEDIATRIC NEUROLOGIST this procedure are in the results section. CALCIUM, IONIZED, S/B STAT 03/12/2021 5:35 Res ults for PM PEDIATRIC NEUROLOGIST this procedure are in the results section. AMMONIA STAT 03/12/2021 5:35 Results for PM PEDIATRIC NEUROLOGIST this procedure are in the results section. COMPREHENSIVE STAT 03/12/2021 5:35 Results for METABOLIC PANEL, S/P PM PEDIATRIC NEUROLOGIST this pr ocedure are in the results section. TRANSFUSE RED BLOOD Routine 03/12/2021 4:08 CELLS PM PEDIATRIC NEUROLOGIST MECHANICAL VENTILATOR Routine 03/12/2021 4:00 PM PEDIATRIC NEUROLOGIST PROTEIN, TOTAL, BF Routine 03/12/2021 3:46 Result s for PM PEDIATRIC NEUROLOGIST this procedure are in the results section. BACTERIAL CULTURE, Routine 03/12/2021 3:46 Result s for AEROBIC + SUSC PM PEDIATRIC NEUROLOGIST this procedur e are in the results section. CELL COUNT AND Routine 03/12/2021 3:46 Results fo r DIFFERENTIAL, BF PM PEDIATRIC NEUROLOGIST this proced ure are in the results section. GRAM STAIN Routine 03/12/2021 3:46 Results for PM PEDIATRIC NEUROLOGIST this procedure are in the results section. BACTERIAL CULTURE, Routine 03/12/2021 3:46 Result s for ANAEROBIC + SUSC PM PEDIATRIC NEUROLOGIST this proced ure are in the results section. ALBUMIN, BODY FLUID Routine 03/12/2021 3:46 Resul ts for PM PEDIATRIC NEUROLOGIST this procedure are in the results section. AUTOIMMUNE LIVER Routine 03/12/2021 2:57 Results for DISEASE PANEL, S PM PEDIATRIC NEUROLOGIST this proced ure are in the results section. [id number], S Routine 03/12/2021 2:57 Re sults for PM PEDIATRIC NEUROLOGIST this procedure are in the results section. CERULOPLASMIN, S Routine 03/12/2021 2:57 Results for PM PEDIATRIC NEUROLOGIST this procedure are in the results section. GLUCOSE POCT, B Routine 03/12/2021 2:06 Results f or PM PEDIATRIC NEUROLOGIST this procedure are in the results section. RESPIRATORY ASSESS AND Routine 03/12/2021 2:00 TREAT PM PEDIATRIC NEUROLOGIST CT ABDOMEN PELVIS WITH RAD - Emergent 03/12/2021 1:50 Results for IV CONTRAST (Fastest; for the PM PEDIATRIC NEUROLOGIST this proce dure most critically are in the ill patients) results section. CT CHEST WITH IV RAD - Emergent 03/12/2021 1:50 Result s for CONTRAST (Fastest; for the PM PEDIATRIC NEUROLOGIST this proce dure most critically are in the ill patients) results section. CT HEAD WITHOUT IV RAD - Emergent 03/12/2021 1:49 Resu lts for CONTRAST (Fastest; for the PM PEDIATRIC NEUROLOGIST this proce dure most critically are in the ill patients) results section. CYTOLOGY NON-FAC ENGINEER Routine 03/12/2021 1:11 Results for PM PEDIATRIC NEUROLOGIST this procedure are in the results section. ECG Routine 03/12/2021 1:01 Results for PM PEDIATRIC NEUROLOGIST this procedure are in the results section. DX CHEST PORTABLE 1 RAD - Semiurgent 03/12/2021 1:00 R esults for VIEW (Fast; most ED PM PEDIATRIC NEUROLOGIST this procedur e patients; some are in the inpatients) results section. TESTING LOCATION Routine 03/12/2021 Results for 12:59 PM PEDIATRIC NEUROLOGIST this procedure are in the results section. LACTATE, B STAT 03/12/2021 Results for 12:59 PM PEDIATRIC NEUROLOGIST this procedure are in the results section. PATIENT STATUS STAT 03/12/2021 Results for 12:59 PM PEDIATRIC NEUROLOGIST this procedure are in the results section. ABG W/COOX STAT 03/12/2021 Results for 12:59 PM PEDIATRIC NEUROLOGIST this procedure are in the results section. PREPARE RED BLOOD Routine 03/12/2021 CELLS 12:59 PM PEDIATRIC NEUROLOGIST PREPARE RED BLOOD Routine 03/12/2021 CELLS 12:59 PM PEDIATRIC NEUROLOGIST PREPARE RED BLOOD Routine 03/12/2021 CELLS 12:59 PM PEDIATRIC NEUROLOGIST PREPARE RED BLOOD Routine 03/12/2021 CELLS 12:59 PM PEDIATRIC NEUROLOGIST TYPE AND SCREEN Routine 03/12/2021 Results for 12:59 PM PEDIATRIC NEUROLOGIST this procedure are in the results section. LACTATE DEHYDROGENASE Routine 03/12/2021 Result s for (LD), S 12:59 PM PEDIATRIC NEUROLOGIST this procedure are in the results section. BILIRUBIN DIRECT, S/P Routine 03/12/2021 Result s for 12:59 PM PEDIATRIC NEUROLOGIST this procedure are in the results section. CYTOLOGY NON-FAC ENGINEER Routine 03/12/2021 Results for 12:39 PM PEDIATRIC NEUROLOGIST this procedure are in the results section. PROTEIN, TOTAL, BF Routine 03/12/2021 Results f or 12:35 PM PEDIATRIC NEUROLOGIST this procedure are in the results section. LACTATE DEHYDROGENASE Routine 03/12/2021 Result s for (LD), BF 12:35 PM PEDIATRIC NEUROLOGIST this procedure are in the results section. BACTERIAL CULTURE, STAT 03/12/2021 Results f or AEROBIC + SUSC 12:34 PM PEDIATRIC NEUROLOGIST this procedur e are in the results section. CELL COUNT AND STAT 03/12/2021 Results for DIFFERENTIAL, BF 12:34 PM PEDIATRIC NEUROLOGIST this proced ure are in the results section. GRAM STAIN STAT 03/12/2021 Results for 12:34 PM PEDIATRIC NEUROLOGIST this procedure are in the results section. BACTERIAL CULTURE, STAT 03/12/2021 Results f or ANAEROBIC + SUSC 12:34 PM PEDIATRIC NEUROLOGIST this proced ure are in the results section. GLUCOSE, BODY FLUID STAT 03/12/2021 Results for 12:34 PM PEDIATRIC NEUROLOGIST this procedure are in the results section. MECHANICAL VENTILATOR Routine 03/12/2021 12:00 PM PEDIATRIC NEUROLOGIST ADULT OXYGEN THERAPY Routine 03/12/2021 11:32 AM PEDIATRIC NEUROLOGIST ADULT OXYGEN THERAPY Routine 03/12/2021 11:32 AM PEDIATRIC NEUROLOGIST ADULT OXYGEN THERAPY Routine 03/12/2021 11:32 AM PEDIATRIC NEUROLOGIST MECHANICAL VENTILATOR Routine 03/12/2021 11:32 AM PEDIATRIC NEUROLOGIST MECHANICAL VENTILATOR Routine 03/12/2021 11:32 AM PEDIATRIC NEUROLOGIST MECHANICAL VENTILATOR Routine 03/12/2021 11:32 AM PEDIATRIC NEUROLOGIST MECHANICAL VENTILATOR Routine 03/12/2021 11:32 AM PEDIATRIC NEUROLOGIST MECHANICAL VENTILATOR Routine 03/12/2021 11:32 AM PEDIATRIC NEUROLOGIST INFLUENZA A/B AND RSV, Routine 03/12/2021 Resul ts for PCR, VARIES 11:00 AM PEDIATRIC NEUROLOGIST this procedure are in the results section. SARS CORONAVIRUS-2 Routine 03/12/2021 Results f or RNA, V 11:00 AM PEDIATRIC NEUROLOGIST this procedure are in the results section. LDA ANE ARTERIAL LINE Routine 03/12/2021 Change Mental Resul ts for INSERTION 10:45 AM PEDIATRIC NEUROLOGIST Status this procedure Cirrhosis are in the Alcoholic (HCC) results section. ND ARTL CATH/CNULA Routine 03/12/2021 Change Mental Results for MONITOR PERC 10:45 AM PEDIATRIC NEUROLOGIST Status this procedure Cirrhosis are in the Alcoholic (HCC) results section. PULSE OXIMETRY, Routine 03/12/2021 8:02 CONTINUOUS AM PEDIATRIC NEUROLOGIST LACTATE, B Timed 03/12/2021 7:10 Results for AM PEDIATRIC NEUROLOGIST this procedure are in the results section. PATIENT STATUS STAT 03/12/2021 7:10 Results fo r AM PEDIATRIC NEUROLOGIST this procedure are in the results section. ABG W/COOX STAT 03/12/2021 7:10 Results for AM PEDIATRIC NEUROLOGIST this procedure are in the results section. BACTERIA / RAUDEL Routine 03/12/2021 7:10 Result s for CULTURE, BLOOD AM PEDIATRIC NEUROLOGIST this procedur e are in the results section. DX CHEST PORTABLE 1 RAD - Semiurgent 03/12/2021 6:24 R esults for VIEW (Fast; most ED AM PEDIATRIC NEUROLOGIST this procedur e patients; some are in the inpatients) results section. URINALYSIS WITH Routine 03/12/2021 6:23 Results f or MICROSCOPIC IF AM PEDIATRIC NEUROLOGIST this procedur e INDICATED, U are in the results section. HC URINALYSIS AUTO WO Routine 03/12/2021 6:23 Res ults for MICRO AM PEDIATRIC NEUROLOGIST this procedure are in the results section. DRUG SCREEN URINE Routine 03/12/2021 6:23 Results for AM PEDIATRIC NEUROLOGIST this procedure are in the results section. NASAL SCREEN FOR MRSA Routine 03/12/2021 6:23 Res ults for BY RAPID PCR AM PEDIATRIC NEUROLOGIST this procedure are in the results section. HCV AB W/REFLEX TO HCV Timed 03/12/2021 5:58 Re sults for PCR, S AM PEDIATRIC NEUROLOGIST this procedure are in the results section. HEPATITIS A IGM AB Timed 03/12/2021 5:58 Result s for AM PEDIATRIC NEUROLOGIST this procedure are in the results section. HEP B CORE AB, IGM Timed 03/12/2021 5:58 Result s for AM PEDIATRIC NEUROLOGIST this procedure are in the results section. HEPATITIS B SURFACE Timed 03/12/2021 5:58 Resul ts for ANTIGEN AM PEDIATRIC NEUROLOGIST this procedure are in the results section. AMMONIA Timed 03/12/2021 5:58 Results for AM PEDIATRIC NEUROLOGIST this procedure are in the results section. LACTATE, B STAT 03/12/2021 5:57 Results for AM PEDIATRIC NEUROLOGIST this procedure are in the results section. ETHANOL, S STAT 03/12/2021 5:57 Results for AM PEDIATRIC NEUROLOGIST this procedure are in the results section. PH BLOOD GAS STAT 03/12/2021 5:57 Results for AM PEDIATRIC NEUROLOGIST this procedure are in the results section. NT-PRO B-TYPE STAT 03/12/2021 5:57 Results for NATRIURETIC PEPTIDE AM PEDIATRIC NEUROLOGIST this pro cedure (BNP), S are in the results section. BACTERIA / RAUDEL Routine 03/12/2021 5:57 Result s for CULTURE, BLOOD AM PEDIATRIC NEUROLOGIST this procedur e are in the results section. PROTHROMBIN TIME (PT), STAT 03/12/2021 5:57 Re sults for P AM PEDIATRIC NEUROLOGIST this procedure are in the results section. CBC WITHOUT STAT 03/12/2021 5:57 Results for DIFFERENTIAL, B AM PEDIATRIC NEUROLOGIST this procedu re are in the results section. HUMAN CHORIONIC STAT 03/12/2021 5:57 Results f or GONADOTROPIN (HCG), AM PEDIATRIC NEUROLOGIST this pro cedure EDDI, are in the results section. THYROID-STIMULATING STAT 03/12/2021 5:57 Resul ts for HORMONE-SENSITIVE AM PEDIATRIC NEUROLOGIST this proce dure (S-TSH) are in the results section. PHOSPHORUS STAT 03/12/2021 5:57 Results for (INORGANIC), S AM PEDIATRIC NEUROLOGIST this procedur e are in the results section. MAGNESIUM, S STAT 03/12/2021 5:57 Results for AM PEDIATRIC NEUROLOGIST this procedure are in the results section. LIPASE, S/P STAT 03/12/2021 5:57 Results for AM PEDIATRIC NEUROLOGIST this procedure are in the results section. CALCIUM, IONIZED, S/B STAT 03/12/2021 5:57 Res ults for AM PEDIATRIC NEUROLOGIST this procedure are in the results section. ACETAMINOPHEN LEVEL, S STAT 03/12/2021 5:57 Re sults for AM PEDIATRIC NEUROLOGIST this procedure are in the results section. SALICYLATE LEVEL, S STAT 03/12/2021 5:57 Resul ts for AM PEDIATRIC NEUROLOGIST this procedure are in the results section. COMPREHENSIVE STAT 03/12/2021 5:57 Results for METABOLIC PANEL, S/P AM PEDIATRIC NEUROLOGIST this pr ocedure are in the results section. GLUCOSE POCT, B Routine 03/12/2021 5:48 Results f or AM PEDIATRIC NEUROLOGIST this procedure are in the results section. RESPIRATORY ASSESS AND Routine 03/12/2021 5:37 TREAT AM PEDIATRIC NEUROLOGIST PULSE OXIMETRY, Routine 03/12/2021 5:37 CONTINUOUS AM PEDIATRIC NEUROLOGIST PULSE OXIMETRY, Routine 03/12/2021 5:37 CONTINUOUS AM PEDIATRIC NEUROLOGIST PULSE OXIMETRY, Routine 03/12/2021 5:37 CONTINUOUS AM PEDIATRIC NEUROLOGIST documented in this encounter Results (ABNORMAL) Prothrombin Time (PT) (03/24/2021 6:15 AM PEDIATRIC NEUROLOGIST) [facility] [employer] gist Method Time Signature Prothrombin 30.1 (H) 9.4 - 12.5 03/24/2021 MK[facility] Time, P sec 6:52 AM PEDIATRIC NEUROLOGIST INR 2.7 0.9 - 1.1 03/24/2021 MKTO 6:52 AM PEDIATRIC NEUROLOGIST Comment: ----ADDITIONAL INFORMATION---- Standard intensity warfarin therapeutic range: 2.0 to 3.0 ?? High intensity warfarin therapeutic rang e: 2.5 to 3.5 Specimen Anatomical Collection Method Collection Time Receive d Time (Source) Location / / Volume Laterality Blood (Blood, 03/24/2021 6:15 AM 03/24/20 6:21 Venous) PEDIATRIC NEUROLOGIST AM PEDIATRIC NEUROLOGIST Darian Thomas M.D., J.D. LAB BLOOD ADD-ON Performing Organization Address City/State/ZIP Code Phon e Number [facility]- [address] [place] [address] [place] [address] System in [address] (ABNORMAL) Comprehensive Metabolic Panel (03/24/2021 6:15 AM PEDIATRIC NEUROLOGIST) Analysis Performed At [facility] logist Time Signature Potassium, P 4.1 3.6 - 5.2 03/24/2021 MK[facility] mmol/L 6:54 AM PEDIATRIC NEUROLOGIST Sodium, P 139 135 - 145 03/24/2021 [facility] mmol/L 6:54 AM PEDIATRIC NEUROLOGIST Chloride, P 108 (H) 98 - 107 03/24/2021 [facility] mmol/L 6:54 AM PEDIATRIC NEUROLOGIST Bicarbonate, P 18 (L) 22 - 29 03/24/2021 [facility] mmol/L 6:54 AM PEDIATRIC NEUROLOGIST Anion Gap, P 13 7 - 15 03/24/2021 MKTO 6:54 AM PEDIATRIC NEUROLOGIST BUN (Blood Urea 6 6 - 21 03/24/2021 MKTO Nitrogen), P mg/dL 6:54 AM PEDIATRIC NEUROLOGIST Creatinine 0.35 (L) 0.59 - 03/24/2021 MKTO 1.04 mg/dL 6:54 AM PEDIATRIC NEUROLOGIST eGFR-Black/Afri >90 >=60 03/24/2021 MKTO can Welsh mL/min/BSA 6:54 AM PEDIATRIC NEUROLOGIST Comment: ----ADDITIONAL INFORMATION---- Estimated GFR calculated using the 2009 CKD_EPI creatinine equation. eGFR Non-Black/ >90 >=60 mL/min/BSA 03/24/2021 6:54 AM PEDIATRIC NEUROLOGIST MKTO Comment: ----ADDITIONAL INFORMATION---- Estimated GFR calculated using the 2009 CKD_EPI creatinine equation. Calcium, Total, P 10.3 (H) 8.6 - 10.0 mg/dL 03/24/2021 6:54 AM PEDIATRIC NEUROLOGIST MKTO Glucose, P 120 70 - 140 mg/dL 03/24/2021 6:54 AM PEDIATRIC NEUROLOGIST M KTO Protein, Total, P 6.5 6.3 - 7.9 g/dL 03/24/2021 6:54 A M PEDIATRIC NEUROLOGIST MKTO Albumin, P 5.3 (H) 3.5 - 5.0 g/dL 03/24/2021 6:54 AM PEDIATRIC NEUROLOGIST M KTO Aspartate Aminotransferase 46 (H) 8 - 43 U/L 03/24/2021 6 :54 AM PEDIATRIC NEUROLOGIST MKTO (AST), P Alkaline Phosphatase, P 77 35 - 104 U/L 03/24/2021 6: 54 AM PEDIATRIC NEUROLOGIST MK[facility] Alanine Aminotransferase 20 7 - 45 U/L 03/24/2021 6:5 4 AM PEDIATRIC NEUROLOGIST MK[facility] (ALT), P Bilirubin, Total, P 7.8 (H) <=1.2 mg/dL 03/24/2021 6:54 AM PEDIATRIC NEUROLOGIST MKTO Specimen Anatomical Collection Method Collection Time Receive d Time (Source) Location / / Volume Laterality Blood (Blood, 03/24/2021 6:15 AM 03/24/20 6:21 Venous) PEDIATRIC NEUROLOGIST AM PEDIATRIC NEUROLOGIST Darian Thomas M.D., J.D. LAB BLOOD ADD-ON Performing Organization Address City/State/ZIP Code Phon e Number [facility]- [address] [place] [phone] [place] [address] [address] (ABNORMAL) CBC without Differential (03/24/2021 6:15 AM PEDIATRIC NEUROLOGIST) Patholo gist Method Time Signature Hemoglobin 8.7 (L) 11.6 - 03/24/2021 MK[facility] 15.0 g/dL 6:33 AM PEDIATRIC NEUROLOGIST Hematocrit 26.3 (L) 35.5 - 03/24/2021 MKTO 44.9 % 6:33 AM PEDIATRIC NEUROLOGIST Erythrocytes 2.80 (L) 3.92 - 03/24/2021 MKTO 5.13 6:33 AM PEDIATRIC NEUROLOGIST x10(12)/L MCV 93.9 78.2 - 03/24/2021 MK[facility] 97.9 fL 6:33 AM PEDIATRIC NEUROLOGIST RBC Distrib Width 21.7 (H) 12.2 - 03/24/2021 MKTO 16.1 % 6:33 AM PEDIATRIC NEUROLOGIST Platelet Count 100 (L) 157 - 371 03/24/2021 MKTO x10(9)/L 6:33 AM PEDIATRIC NEUROLOGIST Leukocytes 10.0 (H) 3.4 - 9.6 03/24/2021 MKTO x10(9)/L 6:33 AM PEDIATRIC NEUROLOGIST Specimen Anatomical Collection Method Collection Time Receive d Time (Source) Location / / Volume Laterality Blood (Blood, 03/24/2021 6:15 AM 03/24/20 6:21 Venous) PEDIATRIC NEUROLOGIST AM PEDIATRIC NEUROLOGIST Darian Thomas M.D., J.D. LAB BLOOD ADD-ON Performing Organization Address City/State/ZIP Code Phon e Number [facility]- [address] [place] [phone] [place] [address] System in [address] Zinc (03/24/2021 6:15 AM PEDIATRIC NEUROLOGIST) P athologist Signature Zinc, S 0.66 0.66 - 1.10 03/25/2021 SDSC mcg/mL 10:45 AM PEDIATRIC NEUROLOGIST Comment: ----ADDITIONAL INFORMATION---- This test was developed [...] (Blood, 03/24/2021 6:15 AM 03/25/20 8:18 Venous) PEDIATRIC NEUROLOGIST AM PEDIATRIC NEUROLOGIST Darian Thomas M.D., J.D. LAB BLOOD NON ADD-ON Performing Organization Address [facility] Phon e Number [facility] [address] [place] [address] Dr CHAPPELL [place] [phone] [address] [facility] [place] [address] Laboratory Medicine and Pathology [address] [place] [address] Dr. CHAPPELL (ABNORMAL) Vitamin A and Vitamin E (03/24/2021 6:15 AM PEDIATRIC NEUROLOGIST) athologist Signature Vitamin A <5.0 (L) 32.5 - 78.0 03/26/2021 [facility] mcg/dL 10:49 AM PEDIATRIC NEUROLOGIST Comment: In this sample, the retinol (vitamin [...] 5.5 - 17.0 mg/L 03/27/2021 4:54 AM PEDIATRIC NEUROLOGIST [facility] Specimen Anatomical Collection Method Collection Time Receive d Time (Source) Location / / Volume Laterality Blood (Blood, 03/24/2021 6:15 AM 03/25/20 3:48 Venous) PEDIATRIC NEUROLOGIST PM PEDIATRIC NEUROLOGIST Darian Thomas M.D., J.D. LAB BLOOD NON ADD-ON Performing Organization Address City/[facility] Code Phon e Number [address] CHAPPELL [place] [address] 05 [facility] [place] [address] Laboratory Medicine and Pathology [address] [place] [address] Dr. CHAPPELL Transfuse Red Blood Cells : (03/23/2021 5:52 PM PEDIATRIC NEUROLOGIST) Darian Thomas M.D., J.D. BLOOD TRANSFUSION ORDERAB LES Transfuse Red Blood Cells : , 1 Units (03/23/2021 5:52 PM PEDIATRIC NEUROLOGIST) Darian Thomas M.D., J.D. BLOOD TRANSFUSION ORDERAB LES Testing Location (03/23/2021 1:12 PM PEDIATRIC NEUROLOGIST) athologist Signature Testing [facility] DEFAULT 03/23/2021 MKTO Location 1:22 PM PEDIATRIC NEUROLOGIST Specimen Anatomical Collection Method Collection Time Receive d Time (Source) Location / / Volume Laterality Blood 03/23/2021 1:12 PM 1:21 PEDIATRIC NEUROLOGIST PM PEDIATRIC NEUROLOGIST Darian Thomas M.D., J.D. LAB BLOOD BANK TEST ORDER HARVEY Performing Organization Address City/[facility] Phon e Number [facility]- [address] [place] [phone] [place] [address] [address] Type and Screen (with reflex Antibody ID) (03/23/2021 1:12 PM PEDIATRIC NEUROLOGIST) [facility] [facility] [employer] gist Method Time Signature ABO Group B 03/23/2021 MKTO 2:01 PM PEDIATRIC NEUROLOGIST Rh Type POS 03/23/2021 MKTO 2:01 PM PEDIATRIC NEUROLOGIST Antibody Screen NEG 03/23/2021 MKTO 2:01 PM PEDIATRIC NEUROLOGIST Type & Screen 03/26/2021 03/23/2021 MKTO Expiration 23:59 2:01 PM PEDIATRIC NEUROLOGIST ELXM Eligible Y 03/23/2021 MKTO 2:01 PM PEDIATRIC NEUROLOGIST Specimen Anatomical Collection Method Collection Time Receive d Time (Source) Location / / Volume Laterality Blood (Blood, 03/23/2021 1:12 PM 03/23/20 1:21 Venous) PEDIATRIC NEUROLOGIST PM PEDIATRIC NEUROLOGIST Darian Thomas M.D., J.D. LAB BLOOD BANK TEST ORDER HARVEY Performing Organization Address City/[facility] Phon e Number [facility]- [address] [place] [phone] [place] [address] System [address] (ABNORMAL) Phosphorus Inorganic (03/23/2021 6:43 AM PEDIATRIC NEUROLOGIST) P athologist Signature Phosphorus 2.4 (L) 2.5 - 4.5 03/23/2021 MKTO (Inorganic), P mg/dL 7:40 AM PEDIATRIC NEUROLOGIST Specimen Anatomical Collection Method Collection Time Receive d Time (Source) Location / / Volume Laterality Blood (Blood, 03/23/2021 6:43 AM 03/23/20 6:58 Venous) PEDIATRIC NEUROLOGIST AM PEDIATRIC NEUROLOGIST Darian Thomas M.D., J.D. LAB BLOOD ADD-ON Performing Organization Address [facility] Phon e Number [facility]- [address] [place] [phone] [place] [address] System in [address] Magnesium (03/23/2021 6:43 AM PEDIATRIC NEUROLOGIST) P athologist Signature Magnesium, P 1.9 1.7 - 2.3 03/23/2021 MKTO mg/dL 7:40 AM PEDIATRIC NEUROLOGIST Specimen Anatomical Collection Method Collection Time Receive d Time (Source) Location / / Volume Laterality Blood (Blood, 03/23/2021 6:43 AM 03/23/20 6:58 Venous) PEDIATRIC NEUROLOGIST AM PEDIATRIC NEUROLOGIST Darian Thomas M.D., J.D. LAB BLOOD ADD-ON Performing Organization Address [facility] Phon e Number [facility]- [address] [place] [phone] [place] [address] (ABNORMAL) Prothrombin Time (PT) (03/23/2021 6:43 AM PEDIATRIC NEUROLOGIST) Patholo gist Method Time Signature Prothrombin 31.8 (H) 9.4 - 12.5 03/23/2021 MKTO Time, P sec 7:55 AM PEDIATRIC NEUROLOGIST INR 2.8 0.9 - 1.1 03/23/2021 MKTO 7:55 AM PEDIATRIC NEUROLOGIST Comment: ----ADDITIONAL INFORMATION---- Standard intensity warfarin therapeutic range: 2.0 to 3.0 ?? High intensity warfarin therapeutic rang e: 2.5 to 3.5 Specimen Anatomical Collection Method Collection Time Receive d Time (Source) Location / / Volume Laterality Blood (Blood, 03/23/2021 6:43 AM 03/23/20 6:58 Venous) PEDIATRIC NEUROLOGIST AM PEDIATRIC NEUROLOGIST Darian Thomas M.D., J.D. LAB BLOOD ADD-ON Performing Organization Address City/State/ZIP Code Phon e Number [facility]- [address] [place] [address] [place] [address] System in [place] [address] [facility] (ABNORMAL) Comprehensive Metabolic Panel (03/23/2021 6:43 AM PEDIATRIC NEUROLOGIST) Analysis Performed At Patho logist Time Signature Potassium, P 3.4 (L) 3.6 - 5.2 03/23/2021 MKTO mmol/L 7:40 AM PEDIATRIC NEUROLOGIST Sodium, P 139 135 - 145 03/23/2021 MKTO mmol/L 7:40 AM PEDIATRIC NEUROLOGIST Chloride, P 106 98 - 107 03/23/2021 MKTO mmol/L 7:40 AM PEDIATRIC NEUROLOGIST Bicarbonate, P 19 (L) 22 - 29 03/23/2021 MKTO mmol/L 7:40 AM PEDIATRIC NEUROLOGIST Anion Gap, P 14 7 - 15 03/23/2021 MKTO 7:40 AM PEDIATRIC NEUROLOGIST BUN (Blood Urea 6 6 - 21 03/23/2021 MKTO Nitrogen), P mg/dL 7:40 AM PEDIATRIC NEUROLOGIST Creatinine 0.37 (L) 0.59 - 03/23/2021 MKTO 1.04 mg/dL 7:40 AM PEDIATRIC NEUROLOGIST eGFR-Black/Afri >90 >=60 03/23/2021 MKTO can Welsh mL/min/BSA 7:40 AM PEDIATRIC NEUROLOGIST Comment: ----ADDITIONAL INFORMATION---- Estimated GFR calculated using the 2009 CKD_EPI creatinine equation. eGFR Non-Black/ >90 >=60 mL/min/BSA 03/23/2021 7:40 AM PEDIATRIC NEUROLOGIST MKTO Comment: ----ADDITIONAL INFORMATION---- Estimated GFR calculated using the 2009 CKD_EPI creatinine equation. Calcium, Total, P 10.3 (H) 8.6 - 10.0 mg/dL 03/23/2021 7:40 AM PEDIATRIC NEUROLOGIST MKTO Glucose, P 152 (H) 70 - 140 mg/dL 03/23/2021 7:40 AM PEDIATRIC NEUROLOGIST M KTO Protein, Total, P 6.3 6.3 - 7.9 g/dL 03/23/2021 7:40 A M PEDIATRIC NEUROLOGIST MKTO Albumin, P 5.3 (H) 3.5 - 5.0 g/dL 03/23/2021 7:40 AM PEDIATRIC NEUROLOGIST M KTO Aspartate Aminotransferase 51 (H) 8 - 43 U/L 03/23/2021 7 :40 AM PEDIATRIC NEUROLOGIST MK[facility] (AST), P Alkaline Phosphatase, P 73 35 - 104 U/L 03/23/2021 7: 40 AM PEDIATRIC NEUROLOGIST MKTO Alanine Aminotransferase 21 7 - 45 U/L 03/23/2021 7:4 0 AM PEDIATRIC NEUROLOGIST MK[facility] (ALT), P Bilirubin, Total, P 6.1 (H) <=1.2 mg/dL 03/23/2021 7:40 AM PEDIATRIC NEUROLOGIST MKTO Specimen Anatomical Collection Method Collection Time Receive d Time (Source) Location / / Volume Laterality Blood (Blood, 03/23/2021 6:43 AM 03/23/20 6:58 Venous) PEDIATRIC NEUROLOGIST AM PEDIATRIC NEUROLOGIST Darian Thomas M.D., J.D. LAB BLOOD ADD-ON Performing Organization Address City/State/ZIP Code Phon e Number [facility]- [address] [place] [phone] [place] [address] [address] [place] [address] (ABNORMAL) CBC without Differential (03/23/2021 6:43 AM PEDIATRIC NEUROLOGIST) [facility] [employer] gist Method Time Signature Hemoglobin 6.8 (L) 11.6 - 03/23/2021 MKTO 15.0 g/dL 7:45 AM PEDIATRIC NEUROLOGIST Hematocrit 21.0 (L) 35.5 - 03/23/2021 MKTO 44.9 % 7:45 AM PEDIATRIC NEUROLOGIST Erythrocytes 2.28 (L) 3.92 - 03/23/2021 MKTO 5.13 7:45 AM PEDIATRIC NEUROLOGIST x10(12)/L MCV 92.1 78.2 - 03/23/2021 MKTO 97.9 fL 7:45 AM PEDIATRIC NEUROLOGIST RBC Distrib Width 22.2 (H) 12.2 - 03/23/2021 MKTO 16.1 % 7:45 AM PEDIATRIC NEUROLOGIST Platelet Count 98 (L) 157 - 371 03/23/2021 MKTO x10(9)/L 7:45 AM PEDIATRIC NEUROLOGIST Leukocytes 9.2 3.4 - 9.6 03/23/2021 MKTO x10(9)/L 7:45 AM PEDIATRIC NEUROLOGIST Specimen Anatomical Collection Method Collection Time Receive d Time (Source) Location / / Volume Laterality Blood (Blood, 03/23/2021 6:43 AM 03/23/20 6:58 Venous) PEDIATRIC NEUROLOGIST AM PEDIATRIC NEUROLOGIST Darian Thomas M.D., J.D. LAB BLOOD ADD-ON Performing Organization Address City/[facility]/ZIP Code Phon e Number [facility]- [address] [place] [phone] [place] [address] System [address] (ABNORMAL) Lactate, B (03/22/2021 8:38 AM PEDIATRIC NEUROLOGIST) P athologist Signature Lactate, B 2.3 (H) 0.5 - 2.2 03/22/2021 MKTO mmol/L 8:58 AM PEDIATRIC NEUROLOGIST Specimen Anatomical Collection Method Collection Time Receive d Time (Source) Location / / Volume Laterality Blood 03/22/2021 8:38 AM 8:50 PEDIATRIC NEUROLOGIST AM PEDIATRIC NEUROLOGIST Darian Thomas M.D., J.D. LAB BLOOD NON ADD-ON Performing Organization Address City/[facility] Phon e Number [facility]- [address] [place] [phone] [place] [address] System in [address] (ABNORMAL) Ammonia (03/22/2021 8:38 AM PEDIATRIC NEUROLOGIST) P athologist Signature Ammonia, P 60 (H) <=51 03/22/2021 MKTO mcmol/L 9:11 AM PEDIATRIC NEUROLOGIST Specimen Anatomical Collection Method Collection Time Receive d Time (Source) Location / / Volume Laterality Blood (Blood, 03/22/2021 8:38 AM 03/22/20 8:50 Venous) PEDIATRIC NEUROLOGIST AM PEDIATRIC NEUROLOGIST Darian Thomas M.D., J.D. LAB BLOOD NON ADD-ON Performing Organization Address City/[facility]/ZIP Code Phon e Number [facility]- [address] [place] [phone] [place] [address] System in [address] (ABNORMAL) Prothrombin Time (PT) (03/22/2021 8:38 AM PEDIATRIC NEUROLOGIST) [facility] gist Method Time Signature Prothrombin 30.5 (H) 9.4 - 12.5 03/22/2021 MKTO Time, P sec 9:24 AM PEDIATRIC NEUROLOGIST INR 2.7 0.9 - 1.1 03/22/2021 MKTO 9:24 AM PEDIATRIC NEUROLOGIST Comment: ----ADDITIONAL INFORMATION---- Standard intensity warfarin therapeutic range: 2.0 to 3.0 ?? High intensity warfarin therapeutic rang e: 2.5 to 3.5 Specimen Anatomical Collection Method Collection Time Receive d Time (Source) Location / / Volume Laterality Blood (Blood, 03/22/2021 8:38 AM 03/22/20 8:50 Venous) PEDIATRIC NEUROLOGIST AM PEDIATRIC NEUROLOGIST Darian Thomas M.D., J.D. LAB BLOOD ADD-ON Performing Organization Address City/State/ZIP Code Phon e Number [facility]- [address] [place] [address] [place] [address] [address] (ABNORMAL) Comprehensive Metabolic Panel (03/22/2021 8:38 AM PEDIATRIC NEUROLOGIST) Analysis Performed At [facility] logist Time Signature Potassium, P 3.4 (L) 3.6 - 5.2 03/22/2021 MKTO mmol/L 9:20 AM PEDIATRIC NEUROLOGIST Sodium, P 139 135 - 145 03/22/2021 MK[facility] mmol/L 9:20 AM PEDIATRIC NEUROLOGIST Chloride, P 105 98 - 107 03/22/2021 [facility]TO mmol/L 9:20 AM PEDIATRIC NEUROLOGIST Bicarbonate, P 19 (L) 22 - 29 03/22/2021 [facility]TO mmol/L 9:20 AM PEDIATRIC NEUROLOGIST Anion Gap, P 15 7 - 15 03/22/2021 MKTO 9:20 AM PEDIATRIC NEUROLOGIST BUN (Blood Urea 6 6 - 21 03/22/2021 MKTO Nitrogen), P mg/dL 9:20 AM PEDIATRIC NEUROLOGIST Creatinine 0.40 (L) 0.59 - 03/22/2021 MKTO 1.04 mg/dL 9:20 AM PEDIATRIC NEUROLOGIST eGFR-Black/Afri >90 >=60 03/22/2021 MKTO can Welsh mL/min/BSA 9:20 AM PEDIATRIC NEUROLOGIST Comment: ----ADDITIONAL INFORMATION---- Estimated GFR calculated using the 2009 CKD_EPI creatinine equation. eGFR Non-Black/ >90 >=60 mL/min/BSA 03/22/2021 9:20 AM PEDIATRIC NEUROLOGIST MKTO Comment: ----ADDITIONAL INFORMATION---- Estimated GFR calculated using the 2009 CKD_EPI creatinine equation. Calcium, Total, P 10.1 (H) 8.6 - 10.0 mg/dL 03/22/2021 9:20 AM PEDIATRIC NEUROLOGIST MKTO Glucose, P 115 70 - 140 mg/dL 03/22/2021 9:20 AM PEDIATRIC NEUROLOGIST M KTO Protein, Total, P 6.2 (L) 6.3 - 7.9 g/dL 03/22/2021 9:20 A M PEDIATRIC NEUROLOGIST MKTO Albumin, P 5.2 (H) 3.5 - 5.0 g/dL 03/22/2021 9:20 AM PEDIATRIC NEUROLOGIST M KTO Aspartate Aminotransferase 52 (H) 8 - 43 U/L 03/22/2021 9 :20 AM PEDIATRIC NEUROLOGIST MKTO (AST), P Alkaline Phosphatase, P 59 35 - 104 U/L 03/22/2021 9: 20 AM PEDIATRIC NEUROLOGIST MKTO Alanine Aminotransferase 20 7 - 45 U/L 03/22/2021 9:2 0 AM PEDIATRIC NEUROLOGIST [facility] (ALT), P Bilirubin, Total, P 5.9 (H) <=1.2 mg/dL 03/22/2021 9:20 AM PEDIATRIC NEUROLOGIST MK[facility] Specimen Anatomical Collection Method Collection Time Receive d Time (Source) Location / / Volume Laterality Blood (Blood, 03/22/2021 8:38 AM 03/22/20 8:50 Venous) PEDIATRIC NEUROLOGIST AM PEDIATRIC NEUROLOGIST Darian Thomas M.D., J.D. LAB BLOOD ADD-ON Performing Organization Address City/State/ZIP Code Phon e Number [facility]- [address] [place] [phone] [place] [address] [place] [address] System [address] (ABNORMAL) CBC without Differential (03/22/2021 8:38 AM PEDIATRIC NEUROLOGIST) [facility] gist Method Time Signature Hemoglobin 7.2 (L) 11.6 - 03/22/2021 [facility] 15.0 g/dL 9:11 AM PEDIATRIC NEUROLOGIST Hematocrit 22.6 (L) 35.5 - 03/22/2021 [facility] 44.9 % 9:11 AM PEDIATRIC NEUROLOGIST Erythrocytes 2.39 (L) 3.92 - 03/22/2021 MK[facility] 5.13 9:11 AM PEDIATRIC NEUROLOGIST x10(12)/L MCV 94.6 78.2 - 03/22/2021 [facility] 97.9 fL 9:11 AM PEDIATRIC NEUROLOGIST RBC Distrib Width 21.6 (H) 12.2 - 03/22/2021 [facility] 16.1 % 9:11 AM PEDIATRIC NEUROLOGIST Platelet Count 98 (L) 157 - 371 03/22/2021 MK[facility] x10(9)/L 9:11 AM PEDIATRIC NEUROLOGIST Leukocytes 9.0 3.4 - 9.6 03/22/2021 MK[facility] x10(9)/L 9:11 AM PEDIATRIC NEUROLOGIST Specimen Anatomical Collection Method Collection Time Receive d Time (Source) Location / / Volume Laterality Blood (Blood, 03/22/2021 8:38 AM 03/22/20 8:50 Venous) PEDIATRIC NEUROLOGIST AM PEDIATRIC NEUROLOGIST Darian Thomas M.D., J.D. LAB BLOOD ADD-ON Performing Organization Address City/[facility] Phon e Number [address] [address] [place] [facility] [place] [phone] System in [address] Phosphorus Inorganic (03/22/2021 8:33 AM PEDIATRIC NEUROLOGIST) athologist Signature Phosphorus 2.7 2.5 - 4.5 03/22/2021 MKTO (Inorganic), P mg/dL 2:17 PM PEDIATRIC NEUROLOGIST Specimen Anatomical Collection Method Collection Time Receive d Time (Source) Location / / Volume Laterality Blood (Blood, 03/22/2021 8:33 AM 03/22/20 2:07 Venous) PEDIATRIC NEUROLOGIST PM PEDIATRIC NEUROLOGIST Darian Thomas M.D., J.D. LAB BLOOD ADD-ON Performing Organization Address City/[facility] Phon e Number [address] [address] [place] [address] (ABNORMAL) Magnesium (03/22/2021 8:33 AM PEDIATRIC NEUROLOGIST) P athologist Signature Magnesium, P 1.6 (L) 1.7 - 2.3 03/22/2021 MKTO mg/dL 2:17 PM PEDIATRIC NEUROLOGIST Specimen Anatomical Collection Method Collection Time Receive d Time (Source) Location / / Volume Laterality Blood (Blood, 03/22/2021 8:33 AM 03/22/20 2:07 Venous) PEDIATRIC NEUROLOGIST PM PEDIATRIC NEUROLOGIST Darian Thomas M.D., J.D. LAB BLOOD ADD-ON Performing Organization Address City/State/ZIP Code Phon e Number [facility]- [address] [place] [address] [place] [address] EEG ROUTINE (03/21/2021 4:43 PM PEDIATRIC NEUROLOGIST) Specimen (Source) Anatomical Location Collection Method / Collectio n Time Received Time / Laterality Volume Narrative MMODAL - 03/21/2021 5:13 PM PEDIATRIC NEUROLOGIST Clinical Interpretation: The short-term video EEG shows [...] M.D., M.P.H. NEUROLOGY ORDERABLES Performing Organization Address City/[facility]/ZIP Code Phon e Number MMODAL MMODAL NA CT Abdomen Pelvis without IV Contrast (03/21/2021 12:42 PM PEDIATRIC NEUROLOGIST) Anatomical Region Laterality Modality Abdomen, Pelvis, Abdominal RST LOS, Abdominal ARZ LOS, N/A Computed Tomography Abdominal FLA LOS Specimen (Source) Anatomical Collection Method Collection Time Re ceived Time Location / / Volume Laterality 03/21/2021 1:09 PM PEDIATRIC NEUROLOGIST Impressions 03/21/2021 1:19 PM PEDIATRIC NEUROLOGIST 1. Slight interval DECREASE in abdominal ascites, however attenuation values have slightly increased, and are indeter minate, raising the possibility that there is blood within this free peritone al fluid. Consider paracentesis 2. No CT evidence for retroperitoneal he morrhage. Narrative 03/21/2021 1:19 PM PEDIATRIC NEUROLOGIST EXAM: CT ABDOMEN PELVIS WITHOUT IV CONTRAST [...] Head without IV Contrast (03/21/2021 12:42 PM PEDIATRIC NEUROLOGIST) Anatomical Region Laterality Modality Head, Neuroradiology RST LOS, Neuroradiology ARZ LOS, N/A Computed Tomography Neuroradiology FLA LOS Specimen (Source) Anatomical Collection Method Collection Time Re ceived Time Location / / Volume Laterality 03/21/2021 1:08 PM PEDIATRIC NEUROLOGIST Impressions 03/21/2021 1:09 PM PEDIATRIC NEUROLOGIST No acute intracranial pathology Narrative 03/21/2021 1:09 PM PEDIATRIC NEUROLOGIST EXAM: CT HEAD WITHOUT IV CONTRAST COMPARISON: [...] PROCEDURES ECG 12 Lead (03/21/2021 10:06 AM PEDIATRIC NEUROLOGIST) P athologist Signature Ventricular Rate 92 BPM MUSE ECG/Min ND Interval 148 ms MUSE QRSD Interval 82 ms MUSE QT Interval 342 ms MUSE QTC Interval 422 ms MUSE P [place] 0 degrees MUSE R [place] 58 degrees MUSE T Wave [place] 12 degrees MUSE Specimen Anatomical Collection Method Collection Time Receive d Time (Source) Location / / Volume Laterality 03/21/2021 10:06 03/21/2021 AM PEDIATRIC NEUROLOGIST 10:09 AM PEDIATRIC NEUROLOGIST Impressions MUSE - 03/21/2021 10:10 AM PEDIATRIC NEUROLOGIST Normal sinus rhythm Nonspecific T wave abnormality [...] (ABNORMAL) Comprehensive Metabolic Panel (03/21/2021 5:44 AM PEDIATRIC NEUROLOGIST) Analysis Performed At Patho logist Time Signature Potassium, P 3.8 3.6 - 5.2 03/21/2021 MKTO mmol/L 6:33 AM PEDIATRIC NEUROLOGIST Sodium, P 141 135 - 145 03/21/2021 MKTO mmol/L 6:33 AM PEDIATRIC NEUROLOGIST Chloride, P 108 (H) 98 - 107 03/21/2021 MKTO mmol/L 6:33 AM PEDIATRIC NEUROLOGIST Bicarbonate, P 19 (L) 22 - 29 03/21/2021 MKTO mmol/L 6:33 AM PEDIATRIC NEUROLOGIST Anion Gap, P 14 7 - 15 03/21/2021 MKTO 6:33 AM PEDIATRIC NEUROLOGIST BUN (Blood Urea 4 (L) 6 - 21 03/21/2021 MKTO Nitrogen), P mg/dL 6:33 AM PEDIATRIC NEUROLOGIST Creatinine 0.38 (L) 0.59 - 03/21/2021 MKTO 1.04 mg/dL 6:33 AM PEDIATRIC NEUROLOGIST eGFR-Black/Afri >90 >=60 03/21/2021 MKTO can Welsh mL/min/BSA 6:33 AM PEDIATRIC NEUROLOGIST Comment: ----ADDITIONAL INFORMATION---- Estimated GFR calculated using the 2009 CKD_EPI creatinine equation. eGFR Non-Black/ >90 >=60 mL/min/BSA 03/21/2021 6:33 AM PEDIATRIC NEUROLOGIST MKTO Comment: ----ADDITIONAL INFORMATION---- Estimated GFR calculated using the 2009 CKD_EPI creatinine equation. Calcium, Total, P 10.3 (H) 8.6 - 10.0 mg/dL 03/21/2021 6:33 AM MKTO PEDIATRIC NEUROLOGIST Glucose, P 104 70 - 140 mg/dL 03/21/2021 6:33 AM MKTO PEDIATRIC NEUROLOGIST Protein, Total, P 6.2 (L) 6.3 - 7.9 g/dL 03/21/2021 6:33 A M MKTO PEDIATRIC NEUROLOGIST Albumin, P 5.2 (H) 3.5 - 5.0 g/dL 03/21/2021 6:33 AM MKTO PEDIATRIC NEUROLOGIST Aspartate Aminotransferase SEE COMMENT 8 - 43 U/L 03/21/2021 6:43 AM MKTO (AST), P PEDIATRIC NEUROLOGIST Comment: Specimen was hemolyzed. Alkaline Phosphatase, P 52 35 - 104 U/L 03/21/2021 6: 33 AM PEDIATRIC NEUROLOGIST MKTO Alanine Aminotransferase (ALT), 19 7 - 45 U/L 021 6:33 AM PEDIATRIC NEUROLOGIST MKTO P Bilirubin, Total, P 5.8 (H) <=1.2 mg/dL 03/21/2021 6:33 AM PEDIATRIC NEUROLOGIST MKTO Specimen Anatomical Collection Method Collection Time Receive d Time (Source) Location / / Volume Laterality Blood (Blood, 03/21/2021 5:44 AM 03/21/20 5:50 Venous) PEDIATRIC NEUROLOGIST AM PEDIATRIC NEUROLOGIST Darian Thomas M.D., J.D. LAB BLOOD ADD-ON Performing Organization Address City/State/ZIP Code Phon e Number [facility]- [address] [place] [phone] [place] [address] System in [place] [address] [place] [address] Lactate, B (03/21/2021 5:43 AM PEDIATRIC NEUROLOGIST) P athologist Signature Lactate, B 1.7 0.5 - 2.2 03/21/2021 MKTO mmol/L 5:56 AM PEDIATRIC NEUROLOGIST Specimen Anatomical Collection Method Collection Time Receive d Time (Source) Location / / Volume Laterality Blood 03/21/2021 5:43 AM 11/19/202 1 5:50 PEDIATRIC NEUROLOGIST AM PEDIATRIC NEUROLOGIST Joshua Sommer P.A.-C.S. LAB BLOOD NON ADD-ON Performing Organization Address City/[facility] Phon e Number [address] [address] [place] [address] System [address] (ABNORMAL) CBC without Differential (03/21/2021 5:43 AM PEDIATRIC NEUROLOGIST) [facility] Method Time Signature Hemoglobin 7.0 (L) 11.6 - 03/21/2021 MKTO 15.0 g/dL 6:09 AM PEDIATRIC NEUROLOGIST Hematocrit 21.2 (L) 35.5 - 03/21/2021 MKTO 44.9 % 6:09 AM PEDIATRIC NEUROLOGIST Erythrocytes 2.35 (L) 3.92 - 03/21/2021 MKTO 5.13 6:09 AM PEDIATRIC NEUROLOGIST x10(12)/L MCV 90.2 78.2 - 03/21/2021 MKTO 97.9 fL 6:09 AM PEDIATRIC NEUROLOGIST RBC Distrib Width 21.1 (H) 12.2 - 03/21/2021 MKTO 16.1 % 6:09 AM PEDIATRIC NEUROLOGIST Platelet Count 91 (L) 157 - 371 03/21/2021 MKTO x10(9)/L 6:09 AM PEDIATRIC NEUROLOGIST Leukocytes 7.8 3.4 - 9.6 03/21/2021 MKTO x10(9)/L 6:09 AM PEDIATRIC NEUROLOGIST Specimen Anatomical Collection Method Collection Time Receive d Time (Source) Location / / Volume Laterality Blood (Blood, 03/21/2021 5:43 AM 03/21/20 5:50 Venous) PEDIATRIC NEUROLOGIST AM PEDIATRIC NEUROLOGIST Darian Thomas M.D., J.D. LAB BLOOD ADD-ON Performing Organization Address [facility] Phon e Number [facility]- [address] [place] [phone] [place] [address] (ABNORMAL) Prothrombin Time (PT) (03/21/2021 5:43 AM PEDIATRIC NEUROLOGIST) [facility] Method Time Signature Prothrombin 29.0 (H) 9.4 - 12.5 03/21/2021 MKTO Time, P sec 6:02 AM PEDIATRIC NEUROLOGIST INR 2.6 0.9 - 1.1 03/21/2021 MKTO 6:02 AM PEDIATRIC NEUROLOGIST Comment: ----ADDITIONAL INFORMATION---- Standard intensity warfarin therapeutic range: 2.0 to 3.0 ?? High intensity warfarin therapeutic rang e: 2.5 to 3.5 Specimen Anatomical Collection Method Collection Time Receive d Time (Source) Location / / Volume Laterality Blood (Blood, 03/21/2021 5:43 AM 03/21/20 5:50 Venous) PEDIATRIC NEUROLOGIST AM PEDIATRIC NEUROLOGIST Keerthi Guzman M.D. LAB BLOOD ADD-ON Performing Organization Address City/[facility] Phon e Number [facility]- [address] [place] [address] (ABNORMAL) Lactate, B (03/20/2021 10:32 PM PEDIATRIC NEUROLOGIST) P athologist Signature Lactate, B 4.1 (H) 0.5 - 2.2 03/20/2021 MKTO mmol/L 10:44 PM PEDIATRIC NEUROLOGIST Specimen Anatomical Collection Method Collection Time Receive d Time (Source) Location / / Volume Laterality Blood 03/20/2021 10:32 03/20/2021 PM PEDIATRIC NEUROLOGIST 10:39 PM PEDIATRIC NEUROLOGIST Alka Cordero P.A.-C., M.S. LAB BLOOD NON ADD-ON Performing Organization Address City/[facility] Phon e Number [facility]- [address] [place] [address] LAB [place] [phone] System in [address] (ABNORMAL) Comprehensive Metabolic Panel (03/20/2021 10:32 PM PEDIATRIC NEUROLOGIST) Analysis Performed At Patho logist Time Signature Potassium, P 3.6 3.6 - 5.2 03/20/2021 MKTO mmol/L 11:16 PM PEDIATRIC NEUROLOGIST Sodium, P 141 135 - 145 03/20/2021 MKTO mmol/L 11:16 PM PEDIATRIC NEUROLOGIST Chloride, P 107 98 - 107 03/20/2021 MKTO mmol/L 11:16 PM PEDIATRIC NEUROLOGIST Bicarbonate, P 17 (L) 22 - 29 03/20/2021 MKTO mmol/L 11:16 PM PEDIATRIC NEUROLOGIST Anion Gap, P 17 (H) 7 - 15 03/20/2021 MKTO 11:16 PM PEDIATRIC NEUROLOGIST BUN (Blood Urea 4 (L) 6 - 21 03/20/2021 MKTO Nitrogen), P mg/dL 11:16 PM PEDIATRIC NEUROLOGIST Creatinine 0.43 (L) 0.59 - 03/20/2021 MKTO 1.04 mg/dL 11:16 PM PEDIATRIC NEUROLOGIST eGFR-Black/Afri >90 >=60 03/20/2021 MKTO can Welsh mL/min/BSA 11:16 PM PEDIATRIC NEUROLOGIST Comment: ----ADDITIONAL INFORMATION---- Estimated GFR calculated using the 2009 CKD_EPI creatinine equation. eGFR Non-Black/ >90 >=60 mL/min/BSA 03/20/2021 11:16 PM PEDIATRIC NEUROLOGIST MKTO Comment: ----ADDITIONAL INFORMATION---- Estimated GFR calculated using the 2009 CKD_EPI creatinine equation. Calcium, Total, P 10.6 (H) 8.6 - 10.0 mg/dL 03/20/2021 11:1 6 PM MKTO PEDIATRIC NEUROLOGIST Glucose, P 117 70 - 140 mg/dL 03/20/2021 11:16 PM MKTO PEDIATRIC NEUROLOGIST Protein, Total, P 6.8 6.3 - 7.9 g/dL 03/20/2021 11:16 PM MKTO PEDIATRIC NEUROLOGIST Albumin, P 5.6 (H) 3.5 - 5.0 g/dL 03/20/2021 11:16 PM MKTO PEDIATRIC NEUROLOGIST Aspartate Aminotransferase 56 (H) 8 - 43 U/L 03/20/2021 1 1:16 PM MKTO (AST), P PEDIATRIC NEUROLOGIST Alkaline Phosphatase, P 59 35 - 104 U/L 03/20/2021 11 :16 PM MKTO PEDIATRIC NEUROLOGIST Alanine Aminotransferase 21 7 - 45 U/L 03/20/2021 11: 16 PM MKTO (ALT), P PEDIATRIC NEUROLOGIST Bilirubin, Total, P 6.0 (H) <=1.2 mg/dL 03/20/2021 11:16 P M MKTO PEDIATRIC NEUROLOGIST Specimen Anatomical Collection Method Collection Time Receive d Time (Source) Location / / Volume Laterality Blood (Blood, 03/20/2021 10:32 03/20/2021 Venous) PM PEDIATRIC NEUROLOGIST 10:39 PM PEDIATRIC NEUROLOGIST Alka Cordero P.A.-C., M.S. LAB BLOOD ADD-ON Performing Organization Address City/[facility]/ZIP [facility] [place] Phon e Number [facility]- [address] [place] [phone] [place] [address] (ABNORMAL) Ammonia (03/20/2021 10:32 PM PEDIATRIC NEUROLOGIST) P athologist Signature Ammonia, P 63 (H) <=51 03/20/2021 MKTO mcmol/L 11:02 PM PEDIATRIC NEUROLOGIST Specimen Anatomical Collection Method Collection Time Receive d Time (Source) Location / / Volume Laterality Blood (Blood, 03/20/2021 10:32 03/20/2021 Venous) PM PEDIATRIC NEUROLOGIST 10:38 PM PEDIATRIC NEUROLOGIST Alka Cordero P.A.-C., M.S. LAB BLOOD NON ADD-ON Performing Organization Address [facility] Code Phon e Number [facility]- [address] [place] [phone] [place] [address] CK (Creatine Kinase) (03/20/2021 10:32 PM PEDIATRIC NEUROLOGIST) P athologist Signature Creatine 40 26 - 192 03/20/2021 MKTO Kinase, P U/L 11:16 PM PEDIATRIC NEUROLOGIST Specimen Anatomical Collection Method Collection Time Receive d Time (Source) Location / / Volume Laterality Blood (Blood, 03/20/2021 10:32 03/20/2021 Venous) PM PEDIATRIC NEUROLOGIST 10:39 PM PEDIATRIC NEUROLOGIST Alka Cordero P.A.-C., M.S. LAB BLOOD ADD-ON Performing Organization Address City/[facility]/ZIP [facility] [place] Phon e Number [facility]- [address] [place] [phone] [facility] [address] (ABNORMAL) CBC with Differential, Blood (03/20/2021 10:32 PM PEDIATRIC NEUROLOGIST) Patholo gist Method Time Signature Hemoglobin 7.5 (L) 11.6 - 03/20/2021 MKTO 15.0 g/dL 10:43 PM PEDIATRIC NEUROLOGIST Hematocrit 22.5 (L) 35.5 - 03/20/2021 MKTO 44.9 % 10:43 PM PEDIATRIC NEUROLOGIST Erythrocytes 2.44 (L) 3.92 - 03/20/2021 MKTO 5.13 10:43 PM PEDIATRIC NEUROLOGIST x10(12)/L MCV 92.2 78.2 - 03/20/2021 MKTO 97.9 fL 10:43 PM PEDIATRIC NEUROLOGIST RBC Distrib Width 20.9 (H) 12.2 - 03/20/2021 MKTO 16.1 % 10:43 PM PEDIATRIC NEUROLOGIST Platelet Count 84 (L) 157 - 371 03/20/2021 MKTO x10(9)/L 10:43 PM PEDIATRIC NEUROLOGIST Leukocytes 8.4 3.4 - 9.6 03/20/2021 MKTO x10(9)/L 10:43 PM PEDIATRIC NEUROLOGIST Neutrophils 6.38 1.56 - 03/20/2021 MKTO 6.45 10:43 PM PEDIATRIC NEUROLOGIST x10(9)/L Lymphocytes 1.10 0.95 - 03/20/2021 MKTO 3.07 10:43 PM PEDIATRIC NEUROLOGIST x10(9)/L Monocytes 0.75 0.26 - 03/20/2021 MKTO 0.81 10:43 PM PEDIATRIC NEUROLOGIST x10(9)/L Eosinophils 0.10 0.03 - 03/20/2021 MKTO 0.48 10:43 PM PEDIATRIC NEUROLOGIST x10(9)/L Basophils <0.03 0.01 - 03/20/2021 MKTO 0.08 10:43 PM PEDIATRIC NEUROLOGIST x10(9)/L Specimen Anatomical Collection Method Collection Time Receive d Time (Source) Location / / Volume Laterality Blood (Blood, 03/20/2021 10:32 03/20/2021 Venous) PM PEDIATRIC NEUROLOGIST 10:39 PM PEDIATRIC NEUROLOGIST Alka Cordero P.A.-C., M.S. LAB BLOOD ADD-ON Performing Organization Address City/State/ZIP Code Phon e Number [facility]- [address] [place] [phone] [place] [address] System in [place] [address] [place] [address] Glucose, POCT (03/20/2021 9:03 PM PEDIATRIC NEUROLOGIST) athologist Signature Glucose, POCT, 131 70 - 140 03/20/2021 MKTO B mg/dL 9:03 PM PEDIATRIC NEUROLOGIST Specimen Anatomical Collection Method Collection Time Receive d Time (Source) Location / / Volume Laterality Blood 03/20/2021 9:03 PM 9:11 PEDIATRIC NEUROLOGIST PM PEDIATRIC NEUROLOGIST Generic Rals LAB POCT ORDERABLES-MANUAL Performing Organization Address City/[facility]/ZIP [facility] [place] Phon e Number [facility]- [address] [place] [phone] [place] [address] Phosphorus Inorganic (03/20/2021 7:40 AM PEDIATRIC NEUROLOGIST) P athologist Signature Phosphorus 3.1 2.5 - 4.5 03/20/2021 MKTO (Inorganic), P mg/dL 8:31 AM PEDIATRIC NEUROLOGIST Specimen Anatomical Collection Method Collection Time Receive d Time (Source) Location / / Volume Laterality Blood 03/20/2021 7:40 AM 7:46 PEDIATRIC NEUROLOGIST AM PEDIATRIC NEUROLOGIST Keerthi Guzman M.D. LAB BLOOD ADD-ON Performing Organization Address City/[facility] Phon e Number [facility]- [address] [place] [phone] [place] [address] (ABNORMAL) Blood Gas with Coox, Venous (03/20/2021 7:40 AM PEDIATRIC NEUROLOGIST) Patholo gist Method Time Signature Venous pO2 56 Not applicable 03/20/2021 MKTO mm Hg 7:59 AM PEDIATRIC NEUROLOGIST Venous pCO2 30 (L) 41 - 51 mm Hg 03/20/2021 MKTO 7:59 AM PEDIATRIC NEUROLOGIST Venous pH 7.48 (H) 7.32 - 7.43 pH 03/20/2021 MKTO 7:59 AM PEDIATRIC NEUROLOGIST Venous Base -1 Not applicable 03/20/2021 MKTO Excess mmol/L 7:59 AM PEDIATRIC NEUROLOGIST HCO3 22 Not applicable 03/20/2021 MKTO mmol/L 7:59 AM PEDIATRIC NEUROLOGIST Hemoglobin, B 7.8 (L) 11.6 - 15.0 03/20/2021 MKTO g/dL 7:59 AM PEDIATRIC NEUROLOGIST O2Hb 88.2 Not applicable 03/20/2021 MKTO % 7:59 AM PEDIATRIC NEUROLOGIST COHb 1.8 <3.0 % 03/20/2021 MKTO 7:59 AM PEDIATRIC NEUROLOGIST MetHb 0.6 <1.5 % 03/20/2021 MKTO 7:59 AM PEDIATRIC NEUROLOGIST CtO2 9.7 Not Applicable 03/20/2021 MKTO vol % 7:59 AM PEDIATRIC NEUROLOGIST Specimen Anatomical Collection Method Collection Time Receive d Time (Source) Location / / Volume Laterality Blood (Blood, 03/20/2021 7:40 AM 03/20/20 7:46 Venous) PEDIATRIC NEUROLOGIST AM PEDIATRIC NEUROLOGIST Darian Thomas M.D., J.D. LAB BLOOD NON ADD-ON Performing Organization Address City/[facility]/ZIP Code Phon e Number [facility]- [address] [place] [phone] [place] [address] Magnesium (03/20/2021 7:40 AM PEDIATRIC NEUROLOGIST) P athologist Signature Magnesium, P 2.3 1.7 - 2.3 03/20/2021 MKTO mg/dL 8:31 AM PEDIATRIC NEUROLOGIST Specimen Anatomical Collection Method Collection Time Receive d Time (Source) Location / / Volume Laterality Blood 03/20/2021 7:40 AM 7:46 PEDIATRIC NEUROLOGIST AM PEDIATRIC NEUROLOGIST Keerthi Guzman M.D. LAB BLOOD ADD-ON Performing Organization Address City/[facility]/ZIP Code Phon e Number [facility]- [address] [place] [phone] [place] [address] System in [address] Calcium, Ionized (03/20/2021 7:40 AM PEDIATRIC NEUROLOGIST) P athologist Signature Calcium, 5.07 4.65 - 5.30 03/20/2021 MKTO Ionized, B mg/dL 7:59 AM PEDIATRIC NEUROLOGIST Specimen Anatomical Collection Method Collection Time Receive d Time (Source) Location / / Volume Laterality Blood 03/20/2021 7:40 AM 7:46 PEDIATRIC NEUROLOGIST AM PEDIATRIC NEUROLOGIST Keerthi Guzman M.D. LAB BLOOD NON ADD-ON Performing Organization Address City/State/ZIP Code Phon e Number [facility]- [address] [place] [phone] [place] [address] (ABNORMAL) pH (03/20/2021 7:40 AM PEDIATRIC NEUROLOGIST) P athologist Signature pH 7.48 (H) 7.35 - 7.45 03/20/2021 MKTO pH 7:59 AM PEDIATRIC NEUROLOGIST Specimen Anatomical Collection Method Collection Time Receive d Time (Source) Location / / Volume Laterality Blood 03/20/2021 7:40 AM 1 7:46 PEDIATRIC NEUROLOGIST AM PEDIATRIC NEUROLOGIST Keerthi Guzman M.D. LAB HISTORICAL ORDERS Performing Organization Address City/State/ZIP Code Phon e Number [facility]- [address] [place] [phone] [place] [address] [address] Lactate, B (03/20/2021 7:40 AM PEDIATRIC NEUROLOGIST) P athologist [facility] Lactate, B 1.0 0.5 - 2.2 03/20/2021 MKTO mmol/L 7:59 AM PEDIATRIC NEUROLOGIST Specimen Anatomical Collection Method Collection Time Receive d Time (Source) Location / / Volume Laterality Blood 03/20/2021 7:40 AM 1 7:46 PEDIATRIC NEUROLOGIST AM PEDIATRIC NEUROLOGIST Keerthi Guzman M.D. LAB BLOOD NON ADD-ON Performing Organization Address City/State/ZIP Code Phon e Number [facility]- [address] [place] [phone] [place] [address] System [address] (ABNORMAL) CBC without Differential (03/20/2021 7:40 AM PEDIATRIC NEUROLOGIST) Patholo gist Method Time Signature Hemoglobin 7.6 (L) 11.6 - 03/20/2021 MKTO 15.0 g/dL 8:13 AM PEDIATRIC NEUROLOGIST Hematocrit 23.4 (L) 35.5 - 03/20/2021 MKTO 44.9 % 8:13 AM PEDIATRIC NEUROLOGIST Erythrocytes 2.54 (L) 3.92 - 03/20/2021 MKTO 5.13 8:13 AM PEDIATRIC NEUROLOGIST x10(12)/L MCV 92.1 78.2 - 03/20/2021 MKTO 97.9 fL 8:13 AM PEDIATRIC NEUROLOGIST RBC Distrib Width 20.5 (H) 12.2 - 03/20/2021 MKTO 16.1 % 8:13 AM PEDIATRIC NEUROLOGIST Platelet Count 94 (L) 157 - 371 03/20/2021 MKTO x10(9)/L 8:13 AM PEDIATRIC NEUROLOGIST Leukocytes 5.9 3.4 - 9.6 03/20/2021 MKTO x10(9)/L 8:13 AM PEDIATRIC NEUROLOGIST Specimen Anatomical Collection Method Collection Time Receive d Time (Source) Location / / Volume Laterality Blood (Blood, 03/20/2021 7:40 AM 03/20/20 7:46 Venous) PEDIATRIC NEUROLOGIST AM PEDIATRIC NEUROLOGIST Keerthi Guzman M.D. LAB BLOOD ADD-ON Performing Organization Address City/State/ZIP Code Phon e Number [address] [place] [address] [address] (ABNORMAL) Comprehensive Metabolic Panel (03/20/2021 7:40 AM PEDIATRIC NEUROLOGIST) Analysis Performed At Patho logist Time Signature Potassium, P 3.3 (L) 3.6 - 5.2 03/20/2021 MKTO mmol/L 8:31 AM PEDIATRIC NEUROLOGIST Sodium, P 142 135 - 145 03/20/2021 MKTO mmol/L 8:31 AM PEDIATRIC NEUROLOGIST Chloride, P 108 (H) 98 - 107 03/20/2021 MKTO mmol/L 8:31 AM PEDIATRIC NEUROLOGIST Bicarbonate, P 20 (L) 22 - 29 03/20/2021 MKTO mmol/L 8:31 AM PEDIATRIC NEUROLOGIST Anion Gap, P 14 7 - 15 03/20/2021 MKTO 8:31 AM PEDIATRIC NEUROLOGIST BUN (Blood Urea 4 (L) 6 - 21 03/20/2021 MKTO Nitrogen), P mg/dL 8:31 AM PEDIATRIC NEUROLOGIST Creatinine 0.35 (L) 0.59 - 03/20/2021 MKTO 1.04 mg/dL 8:31 AM PEDIATRIC NEUROLOGIST eGFR-Black/Afri >90 >=60 03/20/2021 MKTO can Welsh mL/min/BSA 8:32 AM PEDIATRIC NEUROLOGIST Comment: ----ADDITIONAL INFORMATION---- Estimated GFR calculated using the 2009 CKD_EPI creatinine equation. eGFR Non-Black/ >90 >=60 mL/min/BSA 03/20/2021 8:32 AM PEDIATRIC NEUROLOGIST MKTO Comment: ----ADDITIONAL INFORMATION---- Estimated GFR calculated using the 2009 CKD_EPI creatinine equation. Calcium, Total, P 10.2 (H) 8.6 - 10.0 mg/dL 03/20/2021 8:31 AM PEDIATRIC NEUROLOGIST MKTO Glucose, P 107 70 - 140 mg/dL 03/20/2021 8:31 AM PEDIATRIC NEUROLOGIST M KTO Protein, Total, P 6.3 6.3 - 7.9 g/dL 03/20/2021 8:31 A M PEDIATRIC NEUROLOGIST MKTO Albumin, P 5.3 (H) 3.5 - 5.0 g/dL 03/20/2021 8:31 AM PEDIATRIC NEUROLOGIST M KTO Aspartate Aminotransferase 38 8 - 43 U/L 03/20/2021 8 :31 AM PEDIATRIC NEUROLOGIST MKTO (AST), P Alkaline Phosphatase, P 50 35 - 104 U/L 03/20/2021 8: 31 AM PEDIATRIC NEUROLOGIST MK[facility] Alanine Aminotransferase 11 7 - 45 U/L 03/20/2021 8:3 1 AM PEDIATRIC NEUROLOGIST [facility] (ALT), P Bilirubin, Total, P 6.0 (H) <=1.2 mg/dL 03/20/2021 8:31 AM PEDIATRIC NEUROLOGIST MKTO Specimen Anatomical Collection Method Collection Time Receive d Time (Source) Location / / Volume Laterality Blood (Blood, 03/20/2021 7:40 AM 03/20/20 7:46 Venous) PEDIATRIC NEUROLOGIST AM PEDIATRIC NEUROLOGIST Keerthi Guzman M.D. LAB BLOOD ADD-ON Performing Organization Address City/State/ZIP Code Phon e Number [facility]- [address] [place] [phone] [place] [address] [place] [address] [address] (ABNORMAL) Prothrombin Time (PT) (03/20/2021 7:40 AM PEDIATRIC NEUROLOGIST) [facility] Method Time Signature Prothrombin 27.0 (H) 9.4 - 12.5 03/20/2021 MKTO Time, P sec 8:13 AM PEDIATRIC NEUROLOGIST INR 2.4 0.9 - 1.1 03/20/2021 TO 8:13 AM PEDIATRIC NEUROLOGIST Comment: ----ADDITIONAL INFORMATION---- Standard intensity warfarin therapeutic range: 2.0 to 3.0 ?? High intensity warfarin therapeutic rang e: 2.5 to 3.5 Specimen Anatomical Collection Method Collection Time Receive d Time (Source) Location / / Volume Laterality Blood (Blood, 03/20/2021 7:40 AM 03/20/20 7:46 Venous) PEDIATRIC NEUROLOGIST AM PEDIATRIC NEUROLOGIST Keerthi Guzman M.D. LAB BLOOD ADD-ON Performing Organization Address City/State/ZIP Code Phon e Number [facility]- [address] [place] [id number] [place] [address] [address] Transfuse Fresh Frozen Plasma :INR >2: Invasive proc scheduled; 180 mL/hr (03/19/2021 6:37 PM PEDIATRIC NEUROLOGIST) Keerthi Guzman M.D. BLOOD TRANSFUSION ORDERABLES Transfuse Fresh Frozen Plasma :INR >2: Invasive proc scheduled; 180 mL/hr, 1 Units (03/19/2021 6:37 PM PEDIATRIC NEUROLOGIST) Keerthi Guzman M.D. BLOOD TRANSFUSION ORDERABLES Transfuse Red Blood Cells : (03/19/2021 3:21 PM PEDIATRIC NEUROLOGIST) Darian Thomas M.D., J.D. BLOOD TRANSFUSION ORDERAB LES Transfuse Red Blood Cells : , 1 Units (03/19/2021 3:21 PM PEDIATRIC NEUROLOGIST) Darian Thomas M.D., J.D. BLOOD TRANSFUSION ORDERAB LES (ABNORMAL) 25-Hydroxyvitamin D2 and D3 (03/19/2021 3:04 PM PEDIATRIC NEUROLOGIST) P athologist Signature 25-Hydroxy D2 <4.0 ng/mL 03/24/2021 SDSC 4:43 PM PEDIATRIC NEUROLOGIST 25-Hydroxy D3 3.2 ng/mL 03/24/2021 SDSC 4:43 PM PEDIATRIC NEUROLOGIST 25-Hydroxy D <6.0 (L) ng/mL 03/24/2021 SDSC Total 4:43 PM PEDIATRIC NEUROLOGIST Comment: Interpretation: <10 ng/mL (severe defici ency) [...] (Blood, 03/19/2021 3:04 PM 03/20/20 7:18 Venous) PEDIATRIC NEUROLOGIST AM PEDIATRIC NEUROLOGIST Keerthi Guzman M.D. LAB BLOOD ADD-ON Performing Organization Address City/[facility] Code Phon e Number [facility] [address] [place], [place] [address] [place] [address] [place] [address] Laboratory Medicine and Pathology [address] [place] Parathyroid Hormone (PTH) (03/19/2021 3:04 PM PEDIATRIC NEUROLOGIST) athologist Signature Parathyroid 44 15 - 65 03/19/2021 MKTO Hormone (PTH), S pg/mL 4:17 PM PEDIATRIC NEUROLOGIST Comment: Biotin has been identified by the [facility]elle [facility] as a potential interfering substance. ??Higher concentr ations of biotin may be found in multivitamins, hair/nail supple ments, and workout supplements. ??If the result does not [facility] clinical observations, repeat testing after patient refrains fr om the use of supplements for at least 12 hours. Specimen Anatomical Collection Method Collection Time Receive d Time (Source) Location / / Volume Laterality Blood (Blood, 03/19/2021 3:04 PM 03/19/20 21 3:09 Venous) PEDIATRIC NEUROLOGIST PM PEDIATRIC NEUROLOGIST Keerthi Guzman M.D. LAB BLOOD ADD-ON Performing Organization Address City/State/[facility] Code Phon e Number [facility]- [address] [place] [phone] [place] [address] [place] [address] System in [place] [address] [place] [address] (ABNORMAL) pH (03/19/2021 3:04 PM PEDIATRIC NEUROLOGIST) athologist Signature pH 7.51 (H) 7.35 - 7.45 03/19/2021 MKTO pH 3:13 PM PEDIATRIC NEUROLOGIST Specimen Anatomical Collection Method Collection Time Receive d Time (Source) Location / / Volume Laterality Blood 03/19/2021 3:04 PM 1 3:09 PEDIATRIC NEUROLOGIST PM PEDIATRIC NEUROLOGIST Darian Thomas M.D., J.D. LAB HISTORICAL ORDERS Performing Organization Address City/[facility]/ZIP Code Phon e Number [facility]- [address] [place] [phone] [place] [address] System in [address] Calcium, Ionized (03/19/2021 3:04 PM PEDIATRIC NEUROLOGIST) athologist Signature Calcium, 4.88 4.65 - 5.30 03/19/2021 MKTO Ionized, B mg/dL 3:13 PM PEDIATRIC NEUROLOGIST Specimen Anatomical Collection Method Collection Time Receive d Time (Source) Location / / Volume Laterality Blood 03/19/2021 3:04 PM 3:09 PEDIATRIC NEUROLOGIST PM PEDIATRIC NEUROLOGIST Darian Thomas M.D., J.D. LAB BLOOD NON ADD-ON Performing Organization Address City/[facility]/ZIP Code Phon e Number [facility]- [address] [place] [phone] [place] [address] System [address] (ABNORMAL) Potassium (03/19/2021 3:04 PM PEDIATRIC NEUROLOGIST) athologist Signature Potassium, P 3.5 (L) 3.6 - 5.2 03/19/2021 MKTO mmol/L 3:36 PM PEDIATRIC NEUROLOGIST Specimen Anatomical Collection Method Collection Time Receive d Time (Source) Location / / Volume Laterality Blood (Blood, 03/19/2021 3:04 PM 03/19/20 21 3:09 Venous) PEDIATRIC NEUROLOGIST PM PEDIATRIC NEUROLOGIST Keerthi Guzman M.D. LAB BLOOD ADD-ON Performing Organization Address City/State/ZIP Code Phon e Number [facility]- [address] [place] [phone] [place] [address] (TTE) 2D ECHO DOPPLER COLOR AND CONTRAST (03/19/2021 12:39 PM PEDIATRIC NEUROLOGIST) [facility] Method Time Signature Ejection Fraction 68 [...] / / Volume Laterality 03/19/2021 10:58 AM PEDIATRIC NEUROLOGIST Impressions 03/19/2021 12:59 PM PEDIATRIC NEUROLOGIST Echo performed at the patient's bedside. ??Hemoglobin [...] effusion. For the complete report, see the [facility] Documents. Narrative 03/19/2021 12:59 PM PEDIATRIC NEUROLOGIST For the complete report, see the [facility] Documents. Final Impressions 1. Positive for atrial [...] 2020 For the complete report, see the [facility] Documents. Final Impressions 1. Positive for atrial [...] ECHO PROCEDURES (ABNORMAL) Ammonia (03/19/2021 7:39 AM PEDIATRIC NEUROLOGIST) athologist Signature Ammonia, P 65 (H) <=51 03/19/2021 MKTO mcmol/L 8:26 AM PEDIATRIC NEUROLOGIST Specimen Anatomical Collection Method Collection Time Receive d Time (Source) Location / / Volume Laterality Blood (Blood, 03/19/2021 7:39 AM 03/19/20 8:06 Venous) PEDIATRIC NEUROLOGIST AM PEDIATRIC NEUROLOGIST Darian Thomas M.D., J.D. LAB BLOOD NON ADD-ON Performing Organization Address [facility] Phon e Number [address] [address] [place] [facility] [place] [phone] System [address] (ABNORMAL) Phosphorus Inorganic (03/19/2021 7:39 AM PEDIATRIC NEUROLOGIST) athologist Signature Phosphorus 1.8 (L) 2.5 - 4.5 03/19/2021 MKTO (Inorganic), P mg/dL 8:32 AM PEDIATRIC NEUROLOGIST Specimen Anatomical Collection Method Collection Time Receive d Time (Source) Location / / Volume Laterality Blood (Blood, 03/19/2021 7:39 AM 03/19/20 7:57 Venous) PEDIATRIC NEUROLOGIST AM PEDIATRIC NEUROLOGIST Darian Thomas M.D., J.D. LAB BLOOD ADD-ON Performing Organization Address [facility] Phon e Number [address] [address] [place] [facility] [place] [phone] System [address] (ABNORMAL) Magnesium (03/19/2021 7:39 AM PEDIATRIC NEUROLOGIST) athologist Signature Magnesium, P 1.5 (L) 1.7 - 2.3 03/19/2021 MKTO mg/dL 8:32 AM PEDIATRIC NEUROLOGIST Specimen Anatomical Collection Method Collection Time Receive d Time (Source) Location / / Volume Laterality Blood (Blood, 03/19/2021 7:39 AM 03/19/20 7:57 Venous) PEDIATRIC NEUROLOGIST AM PEDIATRIC NEUROLOGIST Darian Thomas M.D., J.D. LAB BLOOD ADD-ON Performing Organization Address City/State/ZIP Code Phon e Number [facility]- [address] [place] [address] [place] [address] System in [place] [address] [facility] (ABNORMAL) Comprehensive Metabolic Panel (03/19/2021 7:39 AM PEDIATRIC NEUROLOGIST) Analysis Performed At Patho logist Time Signature Potassium, P 3.1 (L) 3.6 - 5.2 03/19/2021 MKTO mmol/L 8:32 AM PEDIATRIC NEUROLOGIST Sodium, P 140 135 - 145 03/19/2021 MKTO mmol/L 8:32 AM PEDIATRIC NEUROLOGIST Chloride, P 102 98 - 107 03/19/2021 MKTO mmol/L 8:32 AM PEDIATRIC NEUROLOGIST Bicarbonate, P 19 (L) 22 - 29 03/19/2021 MKTO mmol/L 8:32 AM PEDIATRIC NEUROLOGIST Anion Gap, P 19 (H) 7 - 15 03/19/2021 MKTO 8:32 AM PEDIATRIC NEUROLOGIST BUN (Blood Urea 6 6 - 21 03/19/2021 MKTO Nitrogen), P mg/dL 8:32 AM PEDIATRIC NEUROLOGIST Creatinine 0.33 (L) 0.59 - 03/19/2021 MKTO 1.04 mg/dL 8:32 AM PEDIATRIC NEUROLOGIST eGFR-Black/Afri >90 >=60 03/19/2021 MKTO can Welsh mL/min/BSA 8:32 AM PEDIATRIC NEUROLOGIST Comment: ----ADDITIONAL INFORMATION---- Estimated GFR calculated using the 2009 CKD_EPI creatinine equation. eGFR Non-Black/ >90 >=60 mL/min/BSA 03/19/2021 8:32 AM PEDIATRIC NEUROLOGIST MKTO Comment: ----ADDITIONAL INFORMATION---- Estimated GFR calculated using the 2009 CKD_EPI creatinine equation. Calcium, Total, P 10.6 (H) 8.6 - 10.0 mg/dL 03/19/2021 8:32 AM PEDIATRIC NEUROLOGIST MKTO Glucose, P 116 70 - 140 mg/dL 03/19/2021 8:32 AM PEDIATRIC NEUROLOGIST M KTO Protein, Total, P 6.9 6.3 - 7.9 g/dL 03/19/2021 8:32 A M PEDIATRIC NEUROLOGIST MKTO Albumin, P 6.7 (H) 3.5 - 5.0 g/dL 03/19/2021 9:07 AM PEDIATRIC NEUROLOGIST M KTO Aspartate Aminotransferase 33 8 - 43 U/L 03/19/2021 8 :32 AM PEDIATRIC NEUROLOGIST MKTO (AST), P Alkaline Phosphatase, P 43 35 - 104 U/L 03/19/2021 8: 32 AM PEDIATRIC NEUROLOGIST MKTO Alanine Aminotransferase 10 7 - 45 U/L 03/19/2021 8:3 2 AM PEDIATRIC NEUROLOGIST MKTO (ALT), P Bilirubin, Total, P 6.6 (H) <=1.2 mg/dL 03/19/2021 8:32 AM PEDIATRIC NEUROLOGIST MKTO Specimen Anatomical Collection Method Collection Time Receive d Time (Source) Location / / Volume Laterality Blood (Blood, 03/19/2021 7:39 AM 03/19/20 7:57 Venous) PEDIATRIC NEUROLOGIST AM PEDIATRIC NEUROLOGIST Darian Thomas M.D., J.D. LAB BLOOD ADD-ON Performing Organization Address [facility] Phon e Number [address] [address] [place] [address] (ABNORMAL) Prothrombin Time (PT) (03/19/2021 7:39 AM PEDIATRIC NEUROLOGIST) [facility] gist Method Time Signature Prothrombin 28.4 (H) 9.4 - 12.5 03/19/2021 MKTO Time, P sec 8:10 AM PEDIATRIC NEUROLOGIST INR 2.5 0.9 - 1.1 03/19/2021 MKTO 8:10 AM PEDIATRIC NEUROLOGIST Comment: ----ADDITIONAL INFORMATION---- Standard intensity warfarin therapeutic range: 2.0 to 3.0 ?? High intensity warfarin therapeutic rang e: 2.5 to 3.5 Specimen Anatomical Collection Method Collection Time Receive d Time (Source) Location / / Volume Laterality Blood (Blood, 03/19/2021 7:39 AM 03/19/20 7:57 Venous) PEDIATRIC NEUROLOGIST AM PEDIATRIC NEUROLOGIST Darian Thomas M.D., J.D. LAB BLOOD ADD-ON Performing Organization Address [facility] Phon e Number [address] [address] [place] [address] (ABNORMAL) CBC with Differential, Blood (03/19/2021 7:39 AM PEDIATRIC NEUROLOGIST) [facility] gist Method Time Signature Hemoglobin 6.8 (L) 11.6 - 03/19/2021 MKTO 15.0 g/dL 8:05 AM PEDIATRIC NEUROLOGIST Hematocrit 20.4 (L) 35.5 - 03/19/2021 MKTO 44.9 % 8:05 AM PEDIATRIC NEUROLOGIST Erythrocytes 2.25 (L) 3.92 - 03/19/2021 MKTO 5.13 8:05 AM PEDIATRIC NEUROLOGIST x10(12)/L MCV 90.7 78.2 - 03/19/2021 MKTO 97.9 fL 8:05 AM PEDIATRIC NEUROLOGIST RBC Distrib Width 20.7 (H) 12.2 - 03/19/2021 MKTO 16.1 % 8:05 AM PEDIATRIC NEUROLOGIST Platelet Count 92 (L) 157 - 371 03/19/2021 MKTO x10(9)/L 8:05 AM PEDIATRIC NEUROLOGIST Leukocytes 5.6 3.4 - 9.6 03/19/2021 MKTO x10(9)/L 8:05 AM PEDIATRIC NEUROLOGIST Neutrophils 3.54 1.56 - 03/19/2021 MKTO 6.45 8:05 AM PEDIATRIC NEUROLOGIST x10(9)/L Lymphocytes 1.31 0.95 - 03/19/2021 MKTO 3.07 8:05 AM PEDIATRIC NEUROLOGIST x10(9)/L Monocytes 0.64 0.26 - 03/19/2021 MKTO 0.81 8:05 AM PEDIATRIC NEUROLOGIST x10(9)/L Eosinophils 0.07 0.03 - 03/19/2021 MKTO 0.48 8:05 AM PEDIATRIC NEUROLOGIST x10(9)/L Basophils <0.03 0.01 - 03/19/2021 MKTO 0.08 8:05 AM PEDIATRIC NEUROLOGIST x10(9)/L Specimen Anatomical Collection Method Collection Time Receive d Time (Source) Location / / Volume Laterality Blood (Blood, 03/19/2021 7:39 AM 03/19/20 7:57 Venous) PEDIATRIC NEUROLOGIST AM PEDIATRIC NEUROLOGIST Darian Thomas M.D., J.D. LAB BLOOD ADD-ON Performing Organization Address City/State/ZIP Code Phon e Number [facility]- [address] [place] [address] [place] [address] [address] (ABNORMAL) Bilirubin, Direct (03/19/2021 7:38 AM PEDIATRIC NEUROLOGIST) athologist Signature Bilirubin, 1.6 (H) 0.0 - 0.3 03/19/2021 MKTO Direct, P mg/dL 1:13 PM PEDIATRIC NEUROLOGIST Specimen Anatomical Collection Method Collection Time Receive d Time (Source) Location / / Volume Laterality Blood (Blood, 03/19/2021 7:38 AM 03/19/20 21 Venous) PEDIATRIC NEUROLOGIST 12:25 PM PEDIATRIC NEUROLOGIST Keerthi Guzman M.D. LAB BLOOD ADD-ON Performing Organization Address City/State/ZIP Code Phon e Number [facility]- [address] [place] [phone] [place] [address] [place] [address] System [address] ECG 12 Lead (03/19/2021 6:44 AM PEDIATRIC NEUROLOGIST) athologist Signature Ventricular Rate 108 BPM MUSE ECG/Min ND Interval 156 ms MUSE QRSD Interval 82 ms MUSE QT Interval 298 ms MUSE QTC Interval 399 ms MUSE P [place] 43 degrees MUSE R [place] 41 degrees MUSE T Wave [place] -17 degrees MUSE Specimen Anatomical Collection Method Collection Time Receive d Time (Source) Location / / Volume Laterality 03/19/2021 6:44 AM 6:49 PEDIATRIC NEUROLOGIST AM PEDIATRIC NEUROLOGIST Impressions MUSE - 03/19/2021 6:49 AM PEDIATRIC NEUROLOGIST Sinus tachycardia Nonspecific T wave abnormality When [...] MUSE NA (ABNORMAL) Hemoglobin (03/18/2021 7:00 PM PEDIATRIC NEUROLOGIST) athologist Signature Hemoglobin 7.6 (L) 11.6 - 15.0 03/18/2021 MKTO g/dL 7:07 PM PEDIATRIC NEUROLOGIST Specimen Anatomical Collection Method Collection Time Receive d Time (Source) Location / / Volume Laterality Blood (Blood, 03/18/2021 7:00 PM 03/18/20 7:03 Venous) PEDIATRIC NEUROLOGIST PM PEDIATRIC NEUROLOGIST Darian Thomas M.D., J.D. LAB BLOOD ADD-ON Performing Organization Address City/[facility] Phon e Number [facility]- [address] [place] [phone] [place] [address] [address] (ABNORMAL) Ammonia (03/18/2021 6:59 PM PEDIATRIC NEUROLOGIST) athologist Signature Ammonia, P 55 (H) <=51 03/18/2021 MKTO mcmol/L 7:23 PM PEDIATRIC NEUROLOGIST Specimen Anatomical Collection Method Collection Time Receive d Time (Source) Location / / Volume Laterality Blood (Blood, 03/18/2021 6:59 PM 03/18/20 7:03 Venous) PEDIATRIC NEUROLOGIST PM PEDIATRIC NEUROLOGIST Darian Thomas M.D., J.D. LAB BLOOD NON ADD-ON Performing Organization Address City/[facility] Phon e Number [address] [address] [place] [address] [address] (ABNORMAL) Prothrombin Time (PT) (03/18/2021 8:35 AM PEDIATRIC NEUROLOGIST) [facility] gist Method Time Signature Prothrombin 28.8 (H) 9.4 - 12.5 03/18/2021 MKTO Time, P sec 9:20 AM PEDIATRIC NEUROLOGIST INR 2.6 0.9 - 1.1 03/18/2021 MKTO 9:20 AM PEDIATRIC NEUROLOGIST Comment: ----ADDITIONAL INFORMATION---- Standard intensity warfarin therapeutic range: 2.0 to 3.0 ?? High intensity warfarin therapeutic rang e: 2.5 to 3.5 Specimen Anatomical Collection Method Collection Time Receive d Time (Source) Location / / Volume Laterality Blood (Blood, 03/18/2021 8:35 AM 03/18/20 8:41 Venous) PEDIATRIC NEUROLOGIST AM PEDIATRIC NEUROLOGIST Darian Thomas M.D., J.D. LAB BLOOD ADD-ON Performing Organization Address City/State/ZIP Code Phon e Number [facility]- [address] [place] [address] [place] [address] System in [place] [address] [facility] (ABNORMAL) Comprehensive Metabolic Panel (03/18/2021 8:35 AM PEDIATRIC NEUROLOGIST) Analysis Performed At Patho logist Time Signature Potassium, P 3.1 (L) 3.6 - 5.2 03/18/2021 MKTO mmol/L 9:07 AM PEDIATRIC NEUROLOGIST Sodium, P 141 135 - 145 03/18/2021 MKTO mmol/L 9:07 AM PEDIATRIC NEUROLOGIST Chloride, P 106 98 - 107 03/18/2021 MKTO mmol/L 9:07 AM PEDIATRIC NEUROLOGIST Bicarbonate, P 20 (L) 22 - 29 03/18/2021 MKTO mmol/L 9:07 AM PEDIATRIC NEUROLOGIST Anion Gap, P 15 7 - 15 03/18/2021 MKTO 9:07 AM PEDIATRIC NEUROLOGIST BUN (Blood Urea 7 6 - 21 03/18/2021 MKTO Nitrogen), P mg/dL 9:07 AM PEDIATRIC NEUROLOGIST Creatinine 0.32 (L) 0.59 - 03/18/2021 MKTO 1.04 mg/dL 9:07 AM PEDIATRIC NEUROLOGIST eGFR-Black/Afri >90 >=60 03/18/2021 MKTO can Welsh mL/min/BSA 9:07 AM PEDIATRIC NEUROLOGIST Comment: ----ADDITIONAL INFORMATION---- Estimated GFR calculated using the 2009 CKD_EPI creatinine equation. eGFR Non-Black/ >90 >=60 mL/min/BSA 03/18/2021 9:07 AM PEDIATRIC NEUROLOGIST MKTO Comment: ----ADDITIONAL INFORMATION---- Estimated GFR calculated using the 2009 CKD_EPI creatinine equation. Calcium, Total, P 10.2 (H) 8.6 - 10.0 mg/dL 03/18/2021 9:07 AM PEDIATRIC NEUROLOGIST MKTO Glucose, P 109 70 - 140 mg/dL 03/18/2021 9:07 AM PEDIATRIC NEUROLOGIST M KTO Protein, Total, P 6.3 6.3 - 7.9 g/dL 03/18/2021 9:07 A M PEDIATRIC NEUROLOGIST MKTO Albumin, P 5.4 (H) 3.5 - 5.0 g/dL 03/18/2021 9:07 AM PEDIATRIC NEUROLOGIST M KTO Aspartate Aminotransferase 32 8 - 43 U/L 03/18/2021 9 :07 AM PEDIATRIC NEUROLOGIST MKTO (AST), P Alkaline Phosphatase, P 42 35 - 104 U/L 03/18/2021 9: 07 AM PEDIATRIC NEUROLOGIST MKTO Alanine Aminotransferase 8 7 - 45 U/L 03/18/2021 9:0 7 AM PEDIATRIC NEUROLOGIST MKTO (ALT), P Bilirubin, Total, P 7.7 (H) <=1.2 mg/dL 03/18/2021 9:07 AM PEDIATRIC NEUROLOGIST MKTO Specimen Anatomical Collection Method Collection Time Receive d Time (Source) Location / / Volume Laterality Blood (Blood, 03/18/2021 8:35 AM 03/18/20 8:41 Venous) PEDIATRIC NEUROLOGIST AM PEDIATRIC NEUROLOGIST Darian Thomas M.D., J.D. LAB BLOOD ADD-ON Performing Organization Address City/State/ZIP Code Phon e Number [facility]- [address] [place] [address] [place] [address] [address] in [address] (ABNORMAL) CBC with Differential, Blood (03/18/2021 8:35 AM PEDIATRIC NEUROLOGIST) [facility] Method Time Signature Hemoglobin 7.1 (L) 11.6 - 03/18/2021 MKTO 15.0 g/dL 8:46 AM PEDIATRIC NEUROLOGIST Hematocrit 21.3 (L) 35.5 - 03/18/2021 MKTO 44.9 % 8:46 AM PEDIATRIC NEUROLOGIST Erythrocytes 2.44 (L) 3.92 - 03/18/2021 MKTO 5.13 8:46 AM PEDIATRIC NEUROLOGIST x10(12)/L MCV 87.3 78.2 - 03/18/2021 MKTO 97.9 fL 8:46 AM PEDIATRIC NEUROLOGIST RBC Distrib Width 19.8 (H) 12.2 - 03/18/2021 MKTO 16.1 % 8:46 AM PEDIATRIC NEUROLOGIST Platelet Count 77 (L) 157 - 371 03/18/2021 MKTO x10(9)/L 8:46 AM PEDIATRIC NEUROLOGIST Leukocytes 6.2 3.4 - 9.6 03/18/2021 MKTO x10(9)/L 8:46 AM PEDIATRIC NEUROLOGIST Neutrophils 3.96 1.56 - 03/18/2021 MKTO 6.45 8:46 AM PEDIATRIC NEUROLOGIST x10(9)/L Lymphocytes 1.35 0.95 - 03/18/2021 MKTO 3.07 8:46 AM PEDIATRIC NEUROLOGIST x10(9)/L Monocytes 0.74 0.26 - 03/18/2021 MKTO 0.81 8:46 AM PEDIATRIC NEUROLOGIST x10(9)/L Eosinophils 0.08 0.03 - 03/18/2021 MKTO 0.48 8:46 AM PEDIATRIC NEUROLOGIST x10(9)/L Basophils <0.03 0.01 - 03/18/2021 MKTO 0.08 8:46 AM PEDIATRIC NEUROLOGIST x10(9)/L Specimen Anatomical Collection Method Collection Time Receive d Time (Source) Location / / Volume Laterality Blood (Blood, 03/18/2021 8:35 AM 03/18/20 8:41 Venous) PEDIATRIC NEUROLOGIST AM PEDIATRIC NEUROLOGIST Darian Thomas M.D., J.D. LAB BLOOD ADD-ON Performing Organization Address City/[facility] Phon e Number [address] [address] [place] [address] Magnesium (03/17/2021 6:35 AM PEDIATRIC NEUROLOGIST) P athologist Signature Magnesium, P 1.7 1.7 - 2.3 03/17/2021 MKTO mg/dL 7:24 AM PEDIATRIC NEUROLOGIST Specimen Anatomical Collection Method Collection Time Receive d Time (Source) Location / / Volume Laterality Blood (Blood, 03/17/2021 6:35 AM 03/17/20 6:43 Venous) PEDIATRIC NEUROLOGIST AM PEDIATRIC NEUROLOGIST Ulises Santillan LAB BLOOD ADD-ON Performing Organization Address City/[facility] Phon e Number [address] [address] [place] [address] (ABNORMAL) Basic Metabolic Panel (03/17/2021 6:35 AM PEDIATRIC NEUROLOGIST) [facility] Time Signature Potassium, P 3.7 3.6 - 5.2 03/17/2021 MKTO mmol/L 7:24 AM PEDIATRIC NEUROLOGIST Sodium, P 141 135 - 145 03/17/2021 MKTO mmol/L 7:24 AM PEDIATRIC NEUROLOGIST Chloride, P 106 98 - 107 03/17/2021 MKTO mmol/L 7:24 AM PEDIATRIC NEUROLOGIST Bicarbonate, P 21 (L) 22 - 29 03/17/2021 MKTO mmol/L 7:24 AM PEDIATRIC NEUROLOGIST Anion Gap, P 14 7 - 15 03/17/2021 MKTO 7:24 AM PEDIATRIC NEUROLOGIST BUN (Blood Urea 5 (L) 6 - 21 03/17/2021 MKTO Nitrogen), P mg/dL 7:24 AM PEDIATRIC NEUROLOGIST Creatinine 0.35 (L) 0.59 - 03/17/2021 MKTO 1.04 mg/dL 7:24 AM PEDIATRIC NEUROLOGIST eGFR-Black/Afri >90 >=60 03/17/2021 MKTO can Welsh mL/min/BSA 7:24 AM PEDIATRIC NEUROLOGIST Comment: ----ADDITIONAL INFORMATION---- Estimated GFR calculated using the 2009 CKD_EPI creatinine equation. eGFR Non-Black/ >90 >=60 mL/min/BSA 03/17/2021 7:24 AM PEDIATRIC NEUROLOGIST MKTO Comment: ----ADDITIONAL INFORMATION---- Estimated GFR calculated using the 2009 CKD_EPI creatinine equation. Calcium, Total, P 9.7 8.6 - 10.0 mg/dL 03/17/2021 7:24 AM PEDIATRIC NEUROLOGIST MKTO Glucose, P 116 70 - 140 mg/dL 03/17/2021 7:24 AM PEDIATRIC NEUROLOGIST M KTO Specimen Anatomical Collection Method Collection Time Receive d Time (Source) Location / / Volume Laterality Blood (Blood, 03/17/2021 6:35 AM 03/17/20 6:43 Venous) PEDIATRIC NEUROLOGIST AM PEDIATRIC NEUROLOGIST Harish Ansari P.A.-C., M.S. LAB BLOOD ADD-ON Performing Organization Address City/State/ZIP Code Phon e Number [facility]- [address] [place] [phone] [place] [address] [address] (ABNORMAL) CBC with Differential, Blood (03/17/2021 6:35 AM PEDIATRIC NEUROLOGIST) [facility] gist Method Time Signature Hemoglobin 7.7 (L) 11.6 - 03/17/2021 MKTO 15.0 g/dL 6:58 AM PEDIATRIC NEUROLOGIST Hematocrit 22.3 (L) 35.5 - 03/17/2021 MKTO 44.9 % 6:58 AM PEDIATRIC NEUROLOGIST Erythrocytes 2.56 (L) 3.92 - 03/17/2021 MKTO 5.13 6:58 AM PEDIATRIC NEUROLOGIST x10(12)/L MCV 87.1 78.2 - 03/17/2021 MKTO 97.9 fL 6:58 AM PEDIATRIC NEUROLOGIST RBC Distrib Width 19.3 (H) 12.2 - 03/17/2021 MKTO 16.1 % 6:58 AM PEDIATRIC NEUROLOGIST Platelet Count 68 (L) 157 - 371 03/17/2021 MKTO x10(9)/L 6:58 AM PEDIATRIC NEUROLOGIST Leukocytes 6.1 3.4 - 9.6 03/17/2021 MKTO x10(9)/L 6:58 AM PEDIATRIC NEUROLOGIST Neutrophils 3.82 1.56 - 03/17/2021 MKTO 6.45 6:58 AM PEDIATRIC NEUROLOGIST x10(9)/L Lymphocytes 1.39 0.95 - 03/17/2021 MKTO 3.07 6:58 AM PEDIATRIC NEUROLOGIST x10(9)/L Monocytes 0.77 0.26 - 03/17/2021 [facility]TO 0.81 6:58 AM PEDIATRIC NEUROLOGIST x10(9)/L Eosinophils 0.05 0.03 - 03/17/2021 MKTO 0.48 6:58 AM PEDIATRIC NEUROLOGIST x10(9)/L Basophils <0.03 0.01 - 03/17/2021 MKTO 0.08 6:58 AM PEDIATRIC NEUROLOGIST x10(9)/L Specimen Anatomical Collection Method Collection Time Receive d Time (Source) Location / / Volume Laterality Blood (Blood, 03/17/2021 6:35 AM 03/17/20 6:42 Venous) PEDIATRIC NEUROLOGIST AM PEDIATRIC NEUROLOGIST Harish Ansari P.A.-C., M.S. LAB BLOOD ADD-ON Performing Organization Address City/State/ZIP Code Phon e Number [facility]- [address] [place] [phone] [facility] [address] [address] in [address] (ABNORMAL) Hematocrit (03/16/2021 4:14 PM PEDIATRIC NEUROLOGIST) P athologist Signature Hematocrit 23.7 (L) 35.5 - 44.9 03/16/2021 [facility]TO % 4:25 PM PEDIATRIC NEUROLOGIST Specimen Anatomical Collection Method Collection Time Receive d Time (Source) Location / / Volume Laterality Blood (Blood, 03/16/2021 4:14 PM 03/16/20 4:23 Venous) PEDIATRIC NEUROLOGIST PM PEDIATRIC NEUROLOGIST Lizet Navarro M.D. LAB BLOOD ADD-ON Performing Organization Address City/State/ZIP Code Phon e Number [address] [address] [place] [address] (ABNORMAL) Hemoglobin (03/16/2021 4:14 PM PEDIATRIC NEUROLOGIST) P athologist Signature Hemoglobin 8.2 (L) 11.6 - 15.0 03/16/2021 [facility]TO g/dL 4:25 PM PEDIATRIC NEUROLOGIST Specimen Anatomical Collection Method Collection Time Receive d Time (Source) Location / / Volume Laterality Blood (Blood, 03/16/2021 4:14 PM 03/16/20 4:23 Venous) PEDIATRIC NEUROLOGIST PM PEDIATRIC NEUROLOGIST Lizet Navarro M.D. LAB BLOOD ADD-ON Performing Organization Address City/State/ZIP Code Phon e Number [facility]- [address] [place] [phone] [facility] [address] [address] (ABNORMAL) Hematocrit (03/16/2021 12:58 PM PEDIATRIC NEUROLOGIST) P athologist Signature Hematocrit 24.8 (L) 35.5 - 44.9 03/16/2021 [facility]TO % 1:27 PM PEDIATRIC NEUROLOGIST Specimen Anatomical Collection Method Collection Time Receive d Time (Source) Location / / Volume Laterality Blood (Blood, 03/16/2021 12:58 03/16/2021 1:04 Venous) PM PEDIATRIC NEUROLOGIST PM PEDIATRIC NEUROLOGIST Lizet Navarro M.D. LAB BLOOD ADD-ON Performing Organization Address City/State/ZIP Code Phon e Number [facility]- [address] [place] [phone] [place] [address] [address] (ABNORMAL) Hemoglobin (03/16/2021 12:58 PM PEDIATRIC NEUROLOGIST) P athologist Signature Hemoglobin 8.3 (L) 11.6 - 15.0 03/16/2021 MKTO g/dL 1:27 PM PEDIATRIC NEUROLOGIST Specimen Anatomical Collection Method Collection Time Receive d Time (Source) Location / / Volume Laterality Blood (Blood, 03/16/2021 12:58 03/16/2021 1:04 Venous) PM PEDIATRIC NEUROLOGIST PM PEDIATRIC NEUROLOGIST Lizet Navarro M.D. LAB BLOOD ADD-ON Performing Organization Address City/State/ZIP Code Phon e Number [facility]- [address] [place] [address] [place] [address] System in [address] Transfuse Red Blood Cells : (03/16/2021 11:58 AM PEDIATRIC NEUROLOGIST) Lizet Navarro M.D. BLOOD TRANSFUSION ORDERABLES Transfuse Red Blood Cells : , 2 Units (03/16/2021 11:58 AM PEDIATRIC NEUROLOGIST) Lizet Navarro M.D. BLOOD TRANSFUSION ORDERABLES Transfuse Red Blood Cells : (03/16/2021 11:08 AM PEDIATRIC NEUROLOGIST) Lizet Navarro M.D. BLOOD TRANSFUSION ORDERABLES Transfuse Fresh Frozen Plasma :Bleeding with altered coagulation; 180 mL/hr (03/16/2021 10:21 AM PEDIATRIC NEUROLOGIST) Lizet Navarro M.D. BLOOD TRANSFUSION ORDERABLES Transfuse Fresh Frozen Plasma :Bleeding with altered coagulation; 180 mL/hr, 2 Units (03/16/2021 10:21 AM PEDIATRIC NEUROLOGIST) Lizet Navarro M.D. BLOOD TRANSFUSION ORDERABLES Transfuse Fresh Frozen Plasma :Bleeding with altered coagulation; 180 mL/hr (03/16/2021 10:20 AM PEDIATRIC NEUROLOGIST) Lizet Navarro M.D. BLOOD TRANSFUSION ORDERABLES Transfuse Red Blood Cells : (03/16/2021 9:06 AM PEDIATRIC NEUROLOGIST) Nolabrandee Huitron APRN, C.N.P., M.S.N. BLOOD TRANSFUSI ON ORDERABLES Transfuse Red Blood Cells : , 1 Units (03/16/2021 9:06 AM PEDIATRIC NEUROLOGIST) Nola Huitron APRN, C.N.P., M.S.N. BLOOD TRANSFUSI ON ORDERABLES (ABNORMAL) Fibrinogen (03/16/2021 7:32 AM PEDIATRIC NEUROLOGIST) P athologist Signature Fibrinogen, P 135 (L) 200 - 393 03/16/2021 MKTO mg/dL 7:56 AM PEDIATRIC NEUROLOGIST Specimen Anatomical Collection Method Collection Time Receive d Time (Source) Location / / Volume Laterality Blood (Blood, 03/16/2021 7:32 AM 03/16/20 7:40 Venous) PEDIATRIC NEUROLOGIST AM PEDIATRIC NEUROLOGIST Tariq Santoyo.S. LAB BLOOD ADD-ON Performing Organization Address City/[facility] Phon e Number [facility]- [address] [place] [phone] [place] [address] [place] [address] (ABNORMAL) APTT (Activated Partial Thromboplastin Time) (03/16/2021 7:32 AM PEDIATRIC NEUROLOGIST) P athologist Signature Activated 54 (H) 25 - 37 03/16/2021 MKTO Partial sec 7:53 AM PEDIATRIC NEUROLOGIST Thrombopl Time, P Specimen Anatomical Collection Method Collection Time Receive d Time (Source) Location / / Volume Laterality Blood (Blood, 03/16/2021 7:32 AM 03/16/20 7:40 Venous) PEDIATRIC NEUROLOGIST AM PEDIATRIC NEUROLOGIST Tariq CheryB.S. LAB BLOOD ADD-ON Performing Organization Address City/[facility] Phon e Number [address] [address] [place] [address] (ABNORMAL) Prothrombin Time (PT) (03/16/2021 7:32 AM PEDIATRIC NEUROLOGIST) Patholo gist Method Time Signature Prothrombin 23.4 (H) 9.4 - 12.5 03/16/2021 MKTO Time, P sec 7:51 AM PEDIATRIC NEUROLOGIST INR 2.1 0.9 - 1.1 03/16/2021 MKTO 7:51 AM PEDIATRIC NEUROLOGIST Comment: ----ADDITIONAL INFORMATION---- Standard intensity warfarin therapeutic range: 2.0 to 3.0 ?? High intensity warfarin therapeutic rang e: 2.5 to 3.5 Specimen Anatomical Collection Method Collection Time Receive d Time (Source) Location / / Volume Laterality Blood (Blood, 03/16/2021 7:32 AM 03/16/20 7:40 Venous) PEDIATRIC NEUROLOGIST AM PEDIATRIC NEUROLOGIST Tariq CheryB.S. LAB BLOOD ADD-ON Performing Organization Address City/[facility]/ZIP Code Phon e Number [facility]- [address] [place] [phone] [place] [address] (ABNORMAL) Hemoglobin (03/16/2021 7:31 AM PEDIATRIC NEUROLOGIST) athologist Signature Hemoglobin 5.3 (CL) 11.6 - 15.0 03/16/2021 MKTO g/dL 7:57 AM PEDIATRIC NEUROLOGIST Specimen Anatomical Collection Method Collection Time Receive d Time (Source) Location / / Volume Laterality Blood (Blood, 03/16/2021 7:31 AM 03/16/20 7:40 Venous) PEDIATRIC NEUROLOGIST AM PEDIATRIC NEUROLOGIST Tariq CheryB.S. LAB BLOOD ADD-ON Performing Organization Address City/[facility]/ZIP Code Phon e Number [facility]- [address] [place] [phone] [place] [address] System in [address] Testing Location (03/16/2021 5:44 AM PEDIATRIC NEUROLOGIST) P athologist Signature Testing [facility] DEFAULT 03/16/2021 MKTO Location 5:50 AM PEDIATRIC NEUROLOGIST Specimen Anatomical Collection Method Collection Time Receive d Time (Source) Location / / Volume Laterality Blood 03/16/2021 5:44 AM 5:49 PEDIATRIC NEUROLOGIST AM PEDIATRIC NEUROLOGIST Tariq CheryB.S. LAB BLOOD BANK TEST ORDERABL ES Performing Organization Address City/State/ZIP Code Phon e Number [facility]- [address] [place] [phone] [place] [address] [address] [place] [address] Type and Screen (with reflex Antibody ID) (03/16/2021 5:44 AM PEDIATRIC NEUROLOGIST) Patholo gist Method Time Signature ABO Group B 03/16/2021 MKTO 6:49 AM PEDIATRIC NEUROLOGIST Rh Type POS 03/16/2021 MKTO 6:49 AM PEDIATRIC NEUROLOGIST Antibody Screen NEG 03/16/2021 MKTO 6:49 AM PEDIATRIC NEUROLOGIST Type & Screen 03/19/2021 03/16/2021 MKTO Expiration 23:59 6:49 AM PEDIATRIC NEUROLOGIST ELXM Eligible Y 03/16/2021 MKTO 6:49 AM PEDIATRIC NEUROLOGIST Specimen Anatomical Collection Method Collection Time Receive d Time (Source) Location / / Volume Laterality Blood (Blood, 03/16/2021 5:44 AM 03/16/20 5:49 Venous) PEDIATRIC NEUROLOGIST AM PEDIATRIC NEUROLOGIST Tariq Santillan LAB BLOOD BANK TEST ORDERABL ES Performing Organization Address City/[facility] Phon e Number [facility]- [address] [place] [phone] [place] [address] System in [address] Glucose, POCT (03/16/2021 5:43 AM PEDIATRIC NEUROLOGIST) P athologist Signature Glucose, POCT, 121 70 - 140 03/16/2021 MKTO B mg/dL 5:43 AM PEDIATRIC NEUROLOGIST Specimen Anatomical Collection Method Collection Time Receive d Time (Source) Location / / Volume Laterality Blood 03/16/2021 5:43 AM 5:57 PEDIATRIC NEUROLOGIST AM PEDIATRIC NEUROLOGIST Generic Rals LAB POCT ORDERABLES-MANUAL Performing Organization Address City/[facility]/ZIP [facility] Ph[place] Number [facility]- [address] [place] [phone] [place] [address] [address] in [address] Transfuse Fresh Frozen Plasma :Bleeding with altered coagulation; 180 mL/hr (03/16/2021 5:00 AM PEDIATRIC NEUROLOGIST) Lizet Navarro M.D. BLOOD TRANSFUSION ORDERABLES Transfuse Fresh Frozen Plasma :Bleeding with altered coagulation; 180 mL/hr, 2 Units (03/16/2021 5:00 AM PEDIATRIC NEUROLOGIST) Lizet Navarro M.D. BLOOD TRANSFUSION ORDERABLES (ABNORMAL) Calcium, Ionized (03/16/2021 4:57 AM PEDIATRIC NEUROLOGIST) athologist Signature Calcium, 4.49 (L) 4.65 - 03/16/2021 MKTO Ionized, B 5.30 mg/dL 5:19 AM PEDIATRIC NEUROLOGIST Specimen Anatomical Collection Method Collection Time Receive d Time (Source) Location / / Volume Laterality Blood 03/16/2021 4:57 AM 5:05 PEDIATRIC NEUROLOGIST AM PEDIATRIC NEUROLOGIST Nola Huitron APRN, Katrin.N.P., M.S.N. LAB BLOOD NON A DD-ON Performing Organization Address [facility] Phon e Number [address] [place] [address] (ABNORMAL) pH (03/16/2021 4:57 AM PEDIATRIC NEUROLOGIST) athologist Signature pH 7.49 (H) 7.35 - 7.45 03/16/2021 MKTO pH 5:19 AM PEDIATRIC NEUROLOGIST Specimen Anatomical Collection Method Collection Time Receive d Time (Source) Location / / Volume Laterality Blood 03/16/2021 4:57 AM 5:05 PEDIATRIC NEUROLOGIST AM PEDIATRIC NEUROLOGIST Katrin Thomas APRN.N.P., M.S.N. LAB HISTORICAL ORDERS Performing Organization Address [facility] Phon e Number [address] [address] [place] [facility] [address] (ABNORMAL) CBC without Differential (03/16/2021 4:21 AM PEDIATRIC NEUROLOGIST) [facility] [employer] gist Method Time Signature Hemoglobin 6.2 (L) 11.6 - 03/16/2021 MKTO 15.0 g/dL 4:54 AM PEDIATRIC NEUROLOGIST Hematocrit 18.3 (L) 35.5 - 03/16/2021 MKTO 44.9 % 4:54 AM PEDIATRIC NEUROLOGIST Erythrocytes 1.95 (L) 3.92 - 03/16/2021 MKTO 5.13 4:54 AM PEDIATRIC NEUROLOGIST x10(12)/L MCV 93.8 78.2 - 03/16/2021 MKTO 97.9 fL 4:54 AM PEDIATRIC NEUROLOGIST RBC Distrib Width 20.1 (H) 12.2 - 03/16/2021 MKTO 16.1 % 4:54 AM PEDIATRIC NEUROLOGIST Platelet Count 80 (L) 157 - 371 03/16/2021 MKTO x10(9)/L 4:54 AM PEDIATRIC NEUROLOGIST Leukocytes 6.3 3.4 - 9.6 03/16/2021 MKTO x10(9)/L 4:54 AM PEDIATRIC NEUROLOGIST Specimen Anatomical Collection Method Collection Time Receive d Time (Source) Location / / Volume Laterality Blood (Blood, 03/16/2021 4:21 AM 03/16/20 4:30 Venous) PEDIATRIC NEUROLOGIST AM PEDIATRIC NEUROLOGIST Nola Huitron APRN C.N.P., M.S.N. LAB BLOOD ADD-O N Performing Organization Address City/State/ZIP Code Phon e Number [facility]- [address] [place] [address] [place] [address] (ABNORMAL) Comprehensive Metabolic Panel (03/16/2021 4:21 AM PEDIATRIC NEUROLOGIST) Analysis Performed At Patho logist Time Signature Potassium, P 3.6 3.6 - 5.2 03/16/2021 MKTO mmol/L 4:53 AM PEDIATRIC NEUROLOGIST Sodium, P 140 135 - 145 03/16/2021 MKTO mmol/L 4:53 AM PEDIATRIC NEUROLOGIST Chloride, P 109 (H) 98 - 107 03/16/2021 MKTO mmol/L 4:53 AM PEDIATRIC NEUROLOGIST Bicarbonate, P 20 (L) 22 - 29 03/16/2021 MKTO mmol/L 4:53 AM PEDIATRIC NEUROLOGIST Anion Gap, P 11 7 - 15 03/16/2021 MKTO 4:53 AM PEDIATRIC NEUROLOGIST BUN (Blood Urea 5 (L) 6 - 21 03/16/2021 MKTO Nitrogen), P mg/dL 4:53 AM PEDIATRIC NEUROLOGIST Creatinine 0.40 (L) 0.59 - 03/16/2021 MKTO 1.04 mg/dL 4:53 AM PEDIATRIC NEUROLOGIST eGFR-Black/Afri >90 >=60 03/16/2021 MKTO can Welsh mL/min/BSA 5:29 AM PEDIATRIC NEUROLOGIST Comment: ----ADDITIONAL INFORMATION---- Estimated GFR calculated using the 2009 CKD_EPI creatinine equation. eGFR Non-Black/ >90 >=60 mL/min/BSA 03/16/2021 5:29 AM PEDIATRIC NEUROLOGIST MKTO Comment: ----ADDITIONAL INFORMATION---- Estimated GFR calculated using the 2009 CKD_EPI creatinine equation. Calcium, Total, P 8.9 8.6 - 10.0 mg/dL 03/16/2021 4:53 AM PEDIATRIC NEUROLOGIST MKTO Glucose, P 135 70 - 140 mg/dL 03/16/2021 4:53 AM PEDIATRIC NEUROLOGIST M KTO Protein, Total, P 5.2 (L) 6.3 - 7.9 g/dL 03/16/2021 4:53 A M PEDIATRIC NEUROLOGIST MKTO Albumin, P 4.0 3.5 - 5.0 g/dL 03/16/2021 4:53 AM PEDIATRIC NEUROLOGIST M KTO Aspartate Aminotransferase 33 8 - 43 U/L 03/16/2021 4 :53 AM PEDIATRIC NEUROLOGIST MKTO (AST), P Alkaline Phosphatase, P 43 35 - 104 U/L 03/16/2021 4: 53 AM PEDIATRIC NEUROLOGIST MKTO Alanine Aminotransferase 8 7 - 45 U/L 03/16/2021 4:5 3 AM PEDIATRIC NEUROLOGIST MKTO (ALT), P Bilirubin, Total, P 5.1 (H) <=1.2 mg/dL 03/16/2021 4:53 AM PEDIATRIC NEUROLOGIST MKTO Specimen Anatomical Collection Method Collection Time Receive d Time (Source) Location / / Volume Laterality Blood (Blood, 03/16/2021 4:21 AM 03/16/20 4:53 Venous) PEDIATRIC NEUROLOGIST AM PEDIATRIC NEUROLOGIST Nola Huitron APRN, C.N.P., M.S.N. LAB BLOOD ADD-O N Performing Organization Address City/State/ZIP Code Phon e Number [facility]- [address] [place] [phone] [place] [address] System in [place] [address] [place] [address] (ABNORMAL) Phosphorus Inorganic (03/16/2021 4:21 AM PEDIATRIC NEUROLOGIST) P athologist Signature Phosphorus 2.0 (L) 2.5 - 4.5 03/16/2021 MKTO (Inorganic), P mg/dL 4:53 AM PEDIATRIC NEUROLOGIST Specimen Anatomical Collection Method Collection Time Receive d Time (Source) Location / / Volume Laterality Blood (Blood, 03/16/2021 4:21 AM 03/16/20 4:53 Venous) PEDIATRIC NEUROLOGIST AM PEDIATRIC NEUROLOGIST Nola Huitron APRN, C.N.P., M.S.N. LAB BLOOD ADD-O N Performing Organization Address City/[facility] Phon e Number [facility]- [address] [place] [phone] [place] [address] Magnesium (03/16/2021 4:21 AM PEDIATRIC NEUROLOGIST) P athologist Signature Magnesium, P 1.7 1.7 - 2.3 03/16/2021 MKTO mg/dL 4:53 AM PEDIATRIC NEUROLOGIST Specimen Anatomical Collection Method Collection Time Receive d Time (Source) Location / / Volume Laterality Blood (Blood, 03/16/2021 4:21 AM 03/16/20 4:53 Venous) PEDIATRIC NEUROLOGIST AM PEDIATRIC NEUROLOGIST Nola Huitron APRN, C.N.P., M.S.N. LAB BLOOD ADD-O N Performing Organization Address City/[facility] Phon e Number [facility]- [address] [place] [phone] [place] [address] Transfuse Pooled Cryoprecipitate:Bleeding with Fibrinogen deficiency; 180 mL/hr (03/16/2021 3:48 AM PEDIATRIC NEUROLOGIST) Nola Huitron APRN, C.N.P., M.S.N. BLOOD TRANSFUSI ON ORDERABLES Transfuse Pooled Cryoprecipitate:Bleeding with Fibrinogen deficiency; 180 mL/hr (03/16/2021 3:48 AM PEDIATRIC NEUROLOGIST) Nola Huitron APRN, C.N.P., M.S.N. BLOOD TRANSFUSI ON ORDERABLES Transfuse Pooled Cryoprecipitate:Bleeding with Fibrinogen deficiency; 180 mL/hr (03/16/2021 3:17 AM PEDIATRIC NEUROLOGIST) Nola Huitron APRN, C.N.P., M.S.N. BLOOD TRANSFUSI ON ORDERABLES CT Abdomen Pelvis with IV Contrast (03/16/2021 2:36 AM PEDIATRIC NEUROLOGIST) Anatomical Region Laterality Modality Abdomen, Pelvis, Abdominal RST LOS, Abdominal ARZ LOS, N/A Computed Tomography Abdominal FLA LOS Specimen (Source) Anatomical Collection Method Collection Time Re ceived Time Location / / Volume Laterality 03/16/2021 7:41 AM PEDIATRIC NEUROLOGIST Impressions 03/16/2021 7:49 AM PEDIATRIC NEUROLOGIST 1. Newly identified CHF, with associated compressive atelectasis at each lung base. 2. Stable abdominal ascites with no iden tified area of hemorrhage. 3. Newly identified anasarca. 4. Heterogeneous appearance of the liver with splenomegaly, the combination of findings suggestive of hepatic inflammat ion. Clinical correlation is recommended. Narrative 03/16/2021 7:49 AM PEDIATRIC NEUROLOGIST EXAM: CT ABDOMEN PELVIS WITH IV CONTRAST [...] uterus. Bones: Unremarkable for age, with no hialey picious lesion. vRad: Findings concordant with prelimina [...] Test, POCT, Urine (lab) (03/16/2021 2:11 AM PEDIATRIC NEUROLOGIST) P athologist Signature Negative 03/16/2021 MKTO Test, POCT, U 2:19 AM PEDIATRIC NEUROLOGIST Specimen Anatomical Collection Method Collection Time Receive d Time (Source) Location / / Volume Laterality Urine (Urine, 03/16/2021 2:11 AM 03/16/20 2:11 Clean Catch) PEDIATRIC NEUROLOGIST AM PEDIATRIC NEUROLOGIST Tariq DanielSSuma LAB POCT ORDERABLES - DEVICE Performing Organization Address [facility] Phon e Number [facility]- [address] [place] [phone] [place] [address] (ABNORMAL) Fibrinogen (03/16/2021 1:11 AM PEDIATRIC NEUROLOGIST) P athologist Signature Fibrinogen, P 57 (CL) 200 - 393 03/16/2021 MKTO mg/dL 1:46 AM PEDIATRIC NEUROLOGIST Specimen Anatomical Collection Method Collection Time Receive d Time (Source) Location / / Volume Laterality Blood (Blood, 03/16/2021 1:11 AM 03/16/20 1:15 Venous) PEDIATRIC NEUROLOGIST AM PEDIATRIC NEUROLOGIST Tariq DanielS. LAB BLOOD ADD-ON Performing Organization Address City/[facility] Code Phon e Number [facility]- [address] [place] [phone] [place] [address] System [address] (ABNORMAL) APTT (Activated Partial Thromboplastin Time) (03/16/2021 1:11 AM PEDIATRIC NEUROLOGIST) P athologist Signature Activated 61 (H) 25 - 37 03/16/2021 MKTO Partial sec 1:29 AM PEDIATRIC NEUROLOGIST Thrombopl Time, P Specimen Anatomical Collection Method Collection Time Receive d Time (Source) Location / / Volume Laterality Blood (Blood, 03/16/2021 1:11 AM 03/16/20 1:15 Venous) PEDIATRIC NEUROLOGIST AM PEDIATRIC NEUROLOGIST Tariq DanielS. LAB BLOOD ADD-ON Performing Organization Address City/[facility] Code Phon e Number [address] [address] [place] [address] (ABNORMAL) Prothrombin Time (PT) (03/16/2021 1:11 AM PEDIATRIC NEUROLOGIST) Patholo gist Method Time Signature Prothrombin 26.9 (H) 9.4 - 12.5 03/16/2021 MKTO Time, P sec 1:45 AM PEDIATRIC NEUROLOGIST INR 2.4 0.9 - 1.1 03/16/2021 MKTO 1:45 AM PEDIATRIC NEUROLOGIST Comment: ----ADDITIONAL INFORMATION---- Standard intensity warfarin therapeutic range: 2.0 to 3.0 ?? High intensity warfarin therapeutic rang e: 2.5 to 3.5 Specimen Anatomical Collection Method Collection Time Receive d Time (Source) Location / / Volume Laterality Blood (Blood, 03/16/2021 1:11 AM 03/16/20 1:15 Venous) PEDIATRIC NEUROLOGIST AM PEDIATRIC NEUROLOGIST Tariq CheryB.S. LAB BLOOD ADD-ON Performing Organization Address City/[facility] Phon e Number [address] [address] [place] [address] [address] Potassium (03/16/2021 12:08 AM PEDIATRIC NEUROLOGIST) athologist Signature Potassium, P 3.9 3.6 - 5.2 03/16/2021 MKTO mmol/L 12:33 AM PEDIATRIC NEUROLOGIST Specimen Anatomical Collection Method Collection Time Receive d Time (Source) Location / / Volume Laterality Blood (Blood, 03/16/2021 12:08 03/16/2021 Venous) AM PEDIATRIC NEUROLOGIST 12:33 AM PEDIATRIC NEUROLOGIST Tariq CheryB.S. LAB BLOOD ADD-ON Performing Organization Address City/[facility] Phon e Number [address] [address] [place] [address] (ABNORMAL) Hemoglobin (03/16/2021 12:08 AM PEDIATRIC NEUROLOGIST) P athologist Signature Hemoglobin 7.3 (L) 11.6 - 15.0 03/16/2021 MKTO g/dL 12:26 AM PEDIATRIC NEUROLOGIST Specimen Anatomical Collection Method Collection Time Receive d Time (Source) Location / / Volume Laterality Blood (Blood, 03/16/2021 12:08 03/16/2021 Venous) AM PEDIATRIC NEUROLOGIST 12:26 AM PEDIATRIC NEUROLOGIST Nola Huitron APRN, C.N.P., M.S.N. LAB BLOOD ADD-O N Performing Organization Address City/State/ZIP Code Phon e Number [facility]- [address] [place] [phone] [place] [address] (ABNORMAL) Glucose, POCT (03/15/2021 11:33 PM PEDIATRIC NEUROLOGIST) athologist Signature Glucose, POCT, 160 (H) 70 - 140 03/15/2021 MKTO B mg/dL 11:33 PM PEDIATRIC NEUROLOGIST Specimen Anatomical Collection Method Collection Time Receive d Time (Source) Location / / Volume Laterality Blood 03/15/2021 11:33 03/16/2021 PM PEDIATRIC NEUROLOGIST 12:15 AM PEDIATRIC NEUROLOGIST Generic Rals LAB POCT ORDERABLES-MANUAL Performing Organization Address City/[facility] Phon e Number [facility]- [address] [place] [address] Transfuse Red Blood Cells : (03/15/2021 11:07 PM PEDIATRIC NEUROLOGIST) Nola Huitron APRN, C.N.P., M.S.N. BLOOD TRANSFUSI ON ORDERABLES Transfuse Red Blood Cells : , 1 Units (03/15/2021 11:07 PM PEDIATRIC NEUROLOGIST) Nola Huitron APRN, C.N.P., M.S.N. BLOOD TRANSFUSI ON ORDERABLES (ABNORMAL) Hemoglobin (03/15/2021 8:11 PM PEDIATRIC NEUROLOGIST) athologist Signature Hemoglobin 6.6 (L) 11.6 - 15.0 03/15/2021 MKTO g/dL 8:27 PM PEDIATRIC NEUROLOGIST Specimen Anatomical Collection Method Collection Time Receive d Time (Source) Location / / Volume Laterality Blood (Blood, 03/15/2021 8:11 PM 03/15/20 8:23 Venous) PEDIATRIC NEUROLOGIST PM PEDIATRIC NEUROLOGIST Nola J Elana [employer]DL[employer] CONTROL AGENT, C.N.P., M.S.N. LAB BLOOD ADD-O N Performing Organization Address City/[facility]/ZIP Code Phon e Number [facility]- [address] [place] [phone] [place] [address] System in [address] Transfuse Fresh Frozen Plasma :Bleeding with altered coagulation; 180 mL/hr (03/15/2021 6:20 PM PEDIATRIC NEUROLOGIST) Jailene Barnhart RDN, TALI BLOOD TRANSFUSION ORDERABLES (ABNORMAL) Hemoglobin (03/15/2021 4:52 PM PEDIATRIC NEUROLOGIST) athologist Signature Hemoglobin 7.6 (L) 11.6 - 15.0 03/15/2021 MKTO g/dL 4:57 PM PEDIATRIC NEUROLOGIST Specimen Anatomical Collection Method Collection Time Receive d Time (Source) Location / / Volume Laterality Blood (Blood, 03/15/2021 4:52 PM 03/15/20 4:55 Venous) PEDIATRIC NEUROLOGIST PM PEDIATRIC NEUROLOGIST Lizet Navarro M.D. LAB BLOOD ADD-ON Performing Organization Address City/[facility]/ZIP Code Phon e Number [facility]- [address] [place] [phone] [place] [address] (ABNORMAL) Hematocrit (03/15/2021 4:52 PM PEDIATRIC NEUROLOGIST) athologist Signature Hematocrit 22.4 (L) 35.5 - 44.9 03/15/2021 MKTO % 4:57 PM PEDIATRIC NEUROLOGIST Specimen Anatomical Collection Method Collection Time Receive d Time (Source) Location / / Volume Laterality Blood (Blood, 03/15/2021 4:52 PM 03/15/20 4:55 Venous) PEDIATRIC NEUROLOGIST PM PEDIATRIC NEUROLOGIST Lizet Navarro M.D. LAB BLOOD ADD-ON Performing Organization Address City/[facility]/ZIP Code Phon e Number [facility]- [address] [place] [phone] [place] [address] System in [address] Transfuse Fresh Frozen Plasma :Bleeding with altered coagulation; 180 mL/hr (03/15/2021 3:34 PM PEDIATRIC NEUROLOGIST) Lizet Navarro M.D. BLOOD TRANSFUSION ORDERABLES (ABNORMAL) Phosphorus Inorganic (03/15/2021 2:29 PM PEDIATRIC NEUROLOGIST) athologist Signature Phosphorus 2.3 (L) 2.5 - 4.5 03/15/2021 MKTO (Inorganic), P mg/dL 5:27 PM PEDIATRIC NEUROLOGIST Specimen Anatomical Collection Method Collection Time Receive d Time (Source) Location / / Volume Laterality Blood (Blood, 03/15/2021 2:29 PM 03/15/20 5:12 Venous) PEDIATRIC NEUROLOGIST PM PEDIATRIC NEUROLOGIST Lizet Navarro M.D. LAB BLOOD ADD-ON Performing Organization Address [facility] Phon e Number [facility]- [address] [place] [phone] [place] [address] System [address] Magnesium (03/15/2021 2:29 PM PEDIATRIC NEUROLOGIST) athologist Signature Magnesium, P 1.8 1.7 - 2.3 03/15/2021 MKTO mg/dL 5:27 PM PEDIATRIC NEUROLOGIST Specimen Anatomical Collection Method Collection Time Receive d Time (Source) Location / / Volume Laterality Blood (Blood, 03/15/2021 2:29 PM 03/15/20 5:12 Venous) PEDIATRIC NEUROLOGIST PM PEDIATRIC NEUROLOGIST Lizet Navarro M.D. LAB BLOOD ADD-ON Performing Organization Address City/[facility] Phon e Number [facility]- [address] [place] [phone] [place] [address] [address] (ABNORMAL) Hemoglobin (03/15/2021 2:29 PM PEDIATRIC NEUROLOGIST) athologist Signature Hemoglobin 7.9 (L) 11.6 - 15.0 03/15/2021 MKTO g/dL 2:50 PM PEDIATRIC NEUROLOGIST Specimen Anatomical Collection Method Collection Time Receive d Time (Source) Location / / Volume Laterality Blood (Blood, 03/15/2021 2:29 PM 03/15/20 2:43 Venous) PEDIATRIC NEUROLOGIST PM PEDIATRIC NEUROLOGIST Lizet Navarro M.D. LAB BLOOD ADD-ON Performing Organization Address City/[facility]/ZIP Code Phon e Number [facility]- [address] [place] [phone] [place] [address] (ABNORMAL) Hematocrit (03/15/2021 2:29 PM PEDIATRIC NEUROLOGIST) P athologist Signature Hematocrit 23.3 (L) 35.5 - 44.9 03/15/2021 MKTO % 2:50 PM PEDIATRIC NEUROLOGIST Specimen Anatomical Collection Method Collection Time Receive d Time (Source) Location / / Volume Laterality Blood (Blood, 03/15/2021 2:29 PM 03/15/20 2:43 Venous) PEDIATRIC NEUROLOGIST PM PEDIATRIC NEUROLOGIST Lizet Navarro M.D. LAB BLOOD ADD-ON Performing Organization Address [facility] Code Phon e Number [facility]- [address] [place] [phone] [place] [address] [address] [place] [address] (ABNORMAL) Basic Metabolic Panel (03/15/2021 2:29 PM PEDIATRIC NEUROLOGIST) Analysis Performed At Patho logist Time Signature Potassium, P 3.2 (L) 3.6 - 5.2 03/15/2021 MKTO mmol/L 3:18 PM PEDIATRIC NEUROLOGIST Sodium, P 138 135 - 145 03/15/2021 MKTO mmol/L 3:18 PM PEDIATRIC NEUROLOGIST Chloride, P 105 98 - 107 03/15/2021 MKTO mmol/L 3:18 PM PEDIATRIC NEUROLOGIST Bicarbonate, P 19 (L) 22 - 29 03/15/2021 MKTO mmol/L 3:18 PM PEDIATRIC NEUROLOGIST Anion Gap, P 14 7 - 15 03/15/2021 MKTO 3:18 PM PEDIATRIC NEUROLOGIST BUN (Blood Urea 8 6 - 21 03/15/2021 MKTO Nitrogen), P mg/dL 3:18 PM PEDIATRIC NEUROLOGIST Creatinine 0.49 (L) 0.59 - 03/15/2021 MKTO 1.04 mg/dL 3:18 PM PEDIATRIC NEUROLOGIST eGFR-Black/Afri >90 >=60 03/15/2021 MKTO can Welsh mL/min/BSA 3:18 PM PEDIATRIC NEUROLOGIST Comment: ----ADDITIONAL INFORMATION---- Estimated GFR calculated using the 2009 CKD_EPI creatinine equation. eGFR Non-Black/ >90 >=60 mL/min/BSA 03/15/2021 3:18 PM PEDIATRIC NEUROLOGIST MKTO Comment: ----ADDITIONAL INFORMATION---- Estimated GFR calculated using the 2009 CKD_EPI creatinine equation. Calcium, Total, P 9.0 8.6 - 10.0 mg/dL 03/15/2021 3:18 PM PEDIATRIC NEUROLOGIST MKTO Glucose, P 125 70 - 140 mg/dL 03/15/2021 3:18 PM PEDIATRIC NEUROLOGIST M KTO Specimen Anatomical Collection Method Collection Time Receive d Time (Source) Location / / Volume Laterality Blood (Blood, 03/15/2021 2:29 PM 03/15/20 2:43 Venous) PEDIATRIC NEUROLOGIST PM PEDIATRIC NEUROLOGIST Lizet Navarro M.D. LAB BLOOD ADD-ON Performing Organization Address City/[facility] Phon e Number [facility]- [address] [place] [phone] [place] [address] [address] Transfuse Red Blood Cells : (03/15/2021 1:16 PM PEDIATRIC NEUROLOGIST) Josep Jennings M.D. BLOOD TRANSFUSION ORDERABLES Transfuse Red Blood Cells : , 1 Units (03/15/2021 1:16 PM PEDIATRIC NEUROLOGIST) Josep Jennings M.D. BLOOD TRANSFUSION ORDERABLES Glucose, POCT (03/15/2021 11:57 AM PEDIATRIC NEUROLOGIST) athologist Signature Glucose, POCT, 119 70 - 140 03/15/2021 MKTO B mg/dL 11:57 AM PEDIATRIC NEUROLOGIST Specimen Anatomical Collection Method Collection Time Receive d Time (Source) Location / / Volume Laterality Blood 03/15/2021 11:57 03/15/2021 AM PEDIATRIC NEUROLOGIST 12:08 PM PEDIATRIC NEUROLOGIST Generic Rals LAB POCT ORDERABLES-MANUAL Performing Organization Address [facility] Phon e Number [facility]- [address] [place] [phone] [place] [address] System [place] [address] Glucose, POCT (03/15/2021 6:14 AM PEDIATRIC NEUROLOGIST) athologist Signature Glucose, POCT, 116 70 - 140 03/15/2021 MKTO B mg/dL 6:14 AM PEDIATRIC NEUROLOGIST Specimen Anatomical Collection Method Collection Time Receive d Time (Source) Location / / Volume Laterality Blood 03/15/2021 6:14 AM PEDIATRIC NEUROLOGIST 10:34 AM PEDIATRIC NEUROLOGIST Generic Rals LAB POCT ORDERABLES-MANUAL Performing Organization Address City/[facility]/ZIP Code Phon e Number [facility]- [address] [place] [phone] [place] [address] System [address] Magnesium (03/15/2021 4:18 AM PEDIATRIC NEUROLOGIST) P athologist Signature Magnesium, P 1.7 1.7 - 2.3 03/15/2021 MKTO mg/dL 5:00 AM PEDIATRIC NEUROLOGIST Specimen Anatomical Collection Method Collection Time Receive d Time (Source) Location / / Volume Laterality Blood (Blood, 03/15/2021 4:18 AM 03/15/20 4:35 Venous) PEDIATRIC NEUROLOGIST AM PEDIATRIC NEUROLOGIST Katrin Thomas APRN.N.P., M.S.N. LAB BLOOD ADD-O N Performing Organization Address City/[facility] Phon e Number [facility]- [address] [place] [phone] [place] [address] (ABNORMAL) Phosphorus Inorganic (03/15/2021 4:18 AM PEDIATRIC NEUROLOGIST) P athologist Signature Phosphorus 2.1 (L) 2.5 - 4.5 03/15/2021 MKTO (Inorganic), P mg/dL 5:00 AM PEDIATRIC NEUROLOGIST Specimen Anatomical Collection Method Collection Time Receive d Time (Source) Location / / Volume Laterality Blood (Blood, 03/15/2021 4:18 AM 03/15/20 4:35 Venous) PEDIATRIC NEUROLOGIST AM PEDIATRIC NEUROLOGIST Nola Huitron APRN, Katrin.N.P., M.S.N. LAB BLOOD ADD-O N Performing Organization Address City/[facility]/ZIP Code Phon e Number [facility]- [address] [place] [phone] [place] [address] [address] (ABNORMAL) Prothrombin Time (PT) (03/15/2021 4:18 AM PEDIATRIC NEUROLOGIST) [facility] gist Method Time Signature Prothrombin 26.3 (H) 9.4 - 12.5 03/15/2021 MKTO Time, P sec 4:58 AM PEDIATRIC NEUROLOGIST INR 2.3 0.9 - 1.1 03/15/2021 MKTO 4:58 AM PEDIATRIC NEUROLOGIST Comment: ----ADDITIONAL INFORMATION---- Standard intensity warfarin therapeutic range: 2.0 to 3.0 ?? High intensity warfarin therapeutic rang e: 2.5 to 3.5 Specimen Anatomical Collection Method Collection Time Receive d Time (Source) Location / / Volume Laterality Blood (Blood, 03/15/2021 4:18 AM 03/15/20 4:35 Venous) PEDIATRIC NEUROLOGIST AM PEDIATRIC NEUROLOGIST Nola Huitron APRN, C.N.P., M.S.N. LAB BLOOD ADD-O N Performing Organization Address City/State/ZIP Code Phon e Number [facility]- [address] [place] [address] [place] [address] (ABNORMAL) Comprehensive Metabolic Panel (03/15/2021 4:18 AM PEDIATRIC NEUROLOGIST) Analysis Performed At [facility] logist Time Signature Potassium, P 2.7 (L) 3.6 - 5.2 03/15/2021 MKTO mmol/L 5:00 AM PEDIATRIC NEUROLOGIST Sodium, P 140 135 - 145 03/15/2021 MKTO mmol/L 5:00 AM PEDIATRIC NEUROLOGIST Chloride, P 107 98 - 107 03/15/2021 MKTO mmol/L 5:00 AM PEDIATRIC NEUROLOGIST Bicarbonate, P 20 (L) 22 - 29 03/15/2021 MKTO mmol/L 5:00 AM PEDIATRIC NEUROLOGIST Anion Gap, P 13 7 - 15 03/15/2021 MKTO 5:00 AM PEDIATRIC NEUROLOGIST BUN (Blood Urea 11 6 - 21 03/15/2021 MKTO Nitrogen), P mg/dL 5:00 AM PEDIATRIC NEUROLOGIST Creatinine 0.55 (L) 0.59 - 03/15/2021 MKTO 1.04 mg/dL 5:00 AM PEDIATRIC NEUROLOGIST eGFR-Black/Afri >90 >=60 03/15/2021 MKTO can Welsh mL/min/BSA 5:00 AM PEDIATRIC NEUROLOGIST Comment: ----ADDITIONAL INFORMATION---- Estimated GFR calculated using the 2009 CKD_EPI creatinine equation. eGFR Non-Black/ >90 >=60 mL/min/BSA 03/15/2021 5:00 AM PEDIATRIC NEUROLOGIST MKTO Comment: ----ADDITIONAL INFORMATION---- Estimated GFR calculated using the 2009 CKD_EPI creatinine equation. Calcium, Total, P 9.1 8.6 - 10.0 mg/dL 03/15/2021 5:00 AM PEDIATRIC NEUROLOGIST MKTO Glucose, P 127 70 - 140 mg/dL 03/15/2021 5:00 AM PEDIATRIC NEUROLOGIST M KTO Protein, Total, P 5.7 (L) 6.3 - 7.9 g/dL 03/15/2021 5:00 A M PEDIATRIC NEUROLOGIST MKTO Albumin, P 4.3 3.5 - 5.0 g/dL 03/15/2021 5:00 AM PEDIATRIC NEUROLOGIST M KTO Aspartate Aminotransferase 38 8 - 43 U/L 03/15/2021 5 :00 AM PEDIATRIC NEUROLOGIST MKTO (AST), P Alkaline Phosphatase, P 50 35 - 104 U/L 03/15/2021 5: 00 AM PEDIATRIC NEUROLOGIST MKTO Alanine Aminotransferase 9 7 - 45 U/L 03/15/2021 5:0 0 AM PEDIATRIC NEUROLOGIST MKTO (ALT), P Bilirubin, Total, P 5.6 (H) <=1.2 mg/dL 03/15/2021 5:00 AM PEDIATRIC NEUROLOGIST MKTO Specimen Anatomical Collection Method Collection Time Receive d Time (Source) Location / / Volume Laterality Blood (Blood, 03/15/2021 4:18 AM 03/15/20 4:35 Venous) PEDIATRIC NEUROLOGIST AM PEDIATRIC NEUROLOGIST Nola Huitron APRN C.N.P., M.S.N. LAB BLOOD ADD-O N Performing Organization Address City/State/ZIP Code Phon e Number [facility]- [address] [place] [phone] [place] [address] [place] [address] (ABNORMAL) CBC without Differential (03/15/2021 4:18 AM PEDIATRIC NEUROLOGIST) [facility] gist Method Time Signature Hemoglobin 6.9 (L) .6 - 03/15/2021 MKTO 15.0 g/dL 5:00 AM PEDIATRIC NEUROLOGIST Hematocrit 20.5 (L) 35.5 - 03/15/2021 MKTO 44.9 % 5:00 AM PEDIATRIC NEUROLOGIST Erythrocytes 2.11 (L) 3.92 - 03/15/2021 MKTO 5.13 5:00 AM PEDIATRIC NEUROLOGIST x10(12)/L MCV 97.2 78.2 - 03/15/2021 MKTO 97.9 fL 5:00 AM PEDIATRIC NEUROLOGIST RBC Distrib Width 22.5 (H) 12.2 - 03/15/2021 MKTO 16.1 % 5:00 AM PEDIATRIC NEUROLOGIST Platelet Count 86 (L) 157 - 371 03/15/2021 MKTO x10(9)/L 5:00 AM PEDIATRIC NEUROLOGIST Leukocytes 6.3 3.4 - 9.6 03/15/2021 MKTO x10(9)/L 5:00 AM PEDIATRIC NEUROLOGIST Specimen Anatomical Collection Method Collection Time Receive d Time (Source) Location / / Volume Laterality Blood (Blood, 03/15/2021 4:18 AM 03/15/20 4:35 Venous) PEDIATRIC NEUROLOGIST AM PEDIATRIC NEUROLOGIST Lowell Thomas APRNN.P., M.S.N. LAB BLOOD ADD-O N Performing Organization Address City/[facility] Phon e Number [phone] [place] [address] [place] [address] [address] Glucose, POCT (03/14/2021 11:43 PM PEDIATRIC NEUROLOGIST) P athologist Signature Glucose, POCT, 122 70 - 140 03/14/2021 MKTO B mg/dL 11:43 PM PEDIATRIC NEUROLOGIST Specimen Anatomical Collection Method Collection Time Receive d Time (Source) Location / / Volume Laterality Blood 03/14/2021 11:43 03/15/2021 PM PEDIATRIC NEUROLOGIST 12:29 AM PEDIATRIC NEUROLOGIST Generic Rals LAB POCT ORDERABLES-MANUAL Performing Organization Address City/[facility]/ZIP [facility] Phon e Number [address] [address] [place] [address] [address] Glucose, POCT (03/14/2021 6:25 PM PEDIATRIC NEUROLOGIST) P athologist Signature Glucose, POCT, 140 70 - 140 03/14/2021 MKTO B mg/dL 6:25 PM PEDIATRIC NEUROLOGIST Specimen Anatomical Collection Method Collection Time Receive d Time (Source) Location / / Volume Laterality Blood 03/14/2021 6:25 PM 7:32 PEDIATRIC NEUROLOGIST PM PEDIATRIC NEUROLOGIST Generic Rals LAB POCT ORDERABLES-MANUAL Performing Organization Address City/State/ZIP Code Phon e Number [address] [phone] [place] [address] [address] Glucose, POCT (03/14/2021 11:32 AM PEDIATRIC NEUROLOGIST) P athologist Signature Glucose, POCT, 120 70 - 140 03/14/2021 MKTO B mg/dL 11:32 AM PEDIATRIC NEUROLOGIST Specimen Anatomical Collection Method Collection Time Receive d Time (Source) Location / / Volume Laterality Blood 03/14/2021 11:32 03/14/2021 2:20 AM PEDIATRIC NEUROLOGIST PM PEDIATRIC NEUROLOGIST Generic Rals LAB POCT ORDERABLES-MANUAL Performing Organization Address City/[facility] Phon e Number [address] [address] [place] [address] System [address] Patient Status (03/14/2021 11:00 AM PEDIATRIC NEUROLOGIST) P athologist Signature FIO2 0.30 0.21=AIR 03/14/2021 11:19 MKTO AM PEDIATRIC NEUROLOGIST Specimen Anatomical Collection Method Collection Time Receive d Time (Source) Location / / Volume Laterality Blood 03/14/2021 11:00 03/14/2021 AM PEDIATRIC NEUROLOGIST 11:14 AM PEDIATRIC NEUROLOGIST Lizet Navarro M.D. LAB BLOOD NON ADD-ON Performing Organization Address City/State/ZIP Code Phon e Number [address] [address] [place] [address] System [address] (ABNORMAL) Blood Gas with Coox, Arterial (03/14/2021 11:00 AM PEDIATRIC NEUROLOGIST) [facility] Method Time Signature P O2 120 (H) 83 - 108 03/14/2021 MKTO mm Hg 11:19 AM PEDIATRIC NEUROLOGIST P CO2 33 32 - 45 03/14/2021 MKTO mm Hg 11:19 AM PEDIATRIC NEUROLOGIST pH 7.42 7.35 - 03/14/2021 MKTO 7.45 pH 11:19 AM PEDIATRIC NEUROLOGIST Base Excess -3 (L) -2 - 3 03/14/2021 MKTO mmol/L 11:19 AM PEDIATRIC NEUROLOGIST HCO3 21 (L) 22 - 26 03/14/2021 MKTO mmol/L 11:19 AM PEDIATRIC NEUROLOGIST Hemoglobin, B 7.8 (L) 11.6 - 03/14/2021 MKTO 15.0 g/dL 11:19 AM PEDIATRIC NEUROLOGIST O2Hb 96.7 94.0 - 03/14/2021 MKTO 98.0 % 11:19 AM PEDIATRIC NEUROLOGIST COHb 1.4 <3.0 % 03/14/2021 MKTO 11:19 AM PEDIATRIC NEUROLOGIST MetHb 0.7 <1.5 % 03/14/2021 MKTO 11:19 AM PEDIATRIC NEUROLOGIST CtO2 10.8 (L) 18.0 - 03/14/2021 MKTO 21.0 vol 11:19 AM PEDIATRIC NEUROLOGIST % Arterial Arterial 03/14/2021 MKTO Sample Site Line 11:19 AM PEDIATRIC NEUROLOGIST Specimen Anatomical Collection Method Collection Time Receive d Time (Source) Location / / Volume Laterality Blood (Blood, 03/14/2021 11:00 03/14/2021 Arterial) AM PEDIATRIC NEUROLOGIST 11:14 AM PEDIATRIC NEUROLOGIST Lizet Navarro M.D. LAB BLOOD NON ADD-ON Performing Organization Address City/State/ZIP Code Phon e Number [facility]- [address] [place] [phone] [place] [address] (ABNORMAL) Prothrombin Time (PT) (03/14/2021 9:22 AM PEDIATRIC NEUROLOGIST) [facility] Method Time Signature Prothrombin 28.5 (H) 9.4 - 12.5 03/14/2021 MKTO Time, P sec 10:13 AM PEDIATRIC NEUROLOGIST INR 2.5 0.9 - 1.1 03/14/2021 MKTO 10:13 AM PEDIATRIC NEUROLOGIST Comment: ----ADDITIONAL INFORMATION---- Standard intensity warfarin therapeutic range: 2.0 to 3.0 ?? High intensity warfarin therapeutic rang e: 2.5 to 3.5 Specimen Anatomical Collection Method Collection Time Receive d Time (Source) Location / / Volume Laterality Blood (Blood, 03/14/2021 9:22 AM 03/14/20 9:26 Venous) PEDIATRIC NEUROLOGIST AM PEDIATRIC NEUROLOGIST Katrin Newsome APRN.N.Shanita., M.S.N. LAB BLOOD ADD-ON Performing Organization Address City/[facility]/ZIP [facility] Phon e Number [address] [address] [place] [address] [address] Glucose, POCT (03/14/2021 6:28 AM PEDIATRIC NEUROLOGIST) athologist Signature Glucose, POCT, 109 70 - 140 03/14/2021 MKTO B mg/dL 6:28 AM PEDIATRIC NEUROLOGIST Specimen Anatomical Collection Method Collection Time Receive d Time (Source) Location / / Volume Laterality Blood 03/14/2021 6:28 AM 6:51 PEDIATRIC NEUROLOGIST AM PEDIATRIC NEUROLOGIST Generic Rals LAB POCT ORDERABLES-MANUAL Performing Organization Address [facility] Phon e Number [facility]- [address] [place] [phone] [place] [address] (ABNORMAL) pH (03/14/2021 5:41 AM PEDIATRIC NEUROLOGIST) P athologist Signature pH 7.48 (H) 7.35 - 7.45 03/14/2021 MKTO pH 5:51 AM PEDIATRIC NEUROLOGIST Specimen Anatomical Collection Method Collection Time Receive d Time (Source) Location / / Volume Laterality Blood 03/14/2021 5:41 AM 1 5:48 PEDIATRIC NEUROLOGIST AM PEDIATRIC NEUROLOGIST Katrin Thomas APRN.N.P., M.S.N. LAB HISTORICAL ORDERS Performing Organization Address [facility]/ZIP Code Phon e Number [facility]- [address] [place] [phone] [place] [address] System [address] (ABNORMAL) Calcium, Ionized (03/14/2021 5:41 AM PEDIATRIC NEUROLOGIST) athologist Signature Calcium, 4.61 (L) 4.65 - 03/14/2021 MKTO Ionized, B 5.30 mg/dL 5:51 AM PEDIATRIC NEUROLOGIST Specimen Anatomical Collection Method Collection Time Receive d Time (Source) Location / / Volume Laterality Blood 03/14/2021 5:41 AM 5:48 PEDIATRIC NEUROLOGIST AM PEDIATRIC NEUROLOGIST Katrin Thomas APRN.N.Shanita., M.S.N. LAB BLOOD NON A DD-ON Performing Organization Address City/[facility] Phon e Number [address] [address] [place] [address] System in [address] Patient Status (03/14/2021 5:41 AM PEDIATRIC NEUROLOGIST) athologist Signature FIO2 0.30 0.21=AIR 03/14/2021 5:51 MKTO AM PEDIATRIC NEUROLOGIST Specimen Anatomical Collection Method Collection Time Receive d Time (Source) Location / / Volume Laterality Blood 03/14/2021 5:41 AM 5:48 PEDIATRIC NEUROLOGIST AM PEDIATRIC NEUROLOGIST Katrin Thomas APRN.N.P., M.S.N. LAB BLOOD NON A DD-ON Performing Organization Address City/State/[facility] Phon e Number [address] [address] [facility] [place] [address] [address] Phosphorus Inorganic (03/14/2021 5:41 AM PEDIATRIC NEUROLOGIST) athologist Signature Phosphorus 2.8 2.5 - 4.5 03/14/2021 MKTO (Inorganic), P mg/dL 6:11 AM PEDIATRIC NEUROLOGIST Specimen Anatomical Collection Method Collection Time Receive d Time (Source) Location / / Volume Laterality Blood (Blood, 03/14/2021 5:41 AM 03/14/20 5:48 Venous) PEDIATRIC NEUROLOGIST AM PEDIATRIC NEUROLOGIST Nola Huitron APRN, C.N.P., M.S.N. LAB BLOOD ADD-O N Performing Organization Address City/[facility] Phon e Number [facility]- [address] [place] [phone] [facility] [place] [address] Magnesium (03/14/2021 5:41 AM PEDIATRIC NEUROLOGIST) athologist Signature Magnesium, P 2.3 1.7 - 2.3 03/14/2021 MKTO mg/dL 6:11 AM PEDIATRIC NEUROLOGIST Specimen Anatomical Collection Method Collection Time Receive d Time (Source) Location / / Volume Laterality Blood (Blood, 03/14/2021 5:41 AM 03/14/20 5:48 Venous) PEDIATRIC NEUROLOGIST AM PEDIATRIC NEUROLOGIST Nola Huitron APRN, C.N.P., M.S.N. LAB BLOOD ADD-O N Performing Organization Address [facility] Phon e Number [facility]- [address] [place] [phone] [place] [address] (ABNORMAL) Blood Gas with Coox, Arterial (03/14/2021 5:41 AM PEDIATRIC NEUROLOGIST) athologist Signature P O2 146 (H) 83 - 108 03/14/2021 MKTO mm Hg 5:51 AM PEDIATRIC NEUROLOGIST P CO2 32 32 - 45 mm 03/14/2021 MKTO Hg 5:51 AM PEDIATRIC NEUROLOGIST pH 7.43 7.35 - 03/14/2021 MKTO 7.45 pH 5:51 AM PEDIATRIC NEUROLOGIST Base Excess -2 -2 - 3 03/14/2021 MKTO mmol/L 5:51 AM PEDIATRIC NEUROLOGIST HCO3 21 (L) 22 - 26 03/14/2021 MKTO mmol/L 5:51 AM PEDIATRIC NEUROLOGIST Hemoglobin, B 8.0 (L) 11.6 - 03/14/2021 MKTO 15.0 g/dL 5:51 AM PEDIATRIC NEUROLOGIST O2Hb 97.5 94.0 - 03/14/2021 MKTO 98.0 % 5:51 AM PEDIATRIC NEUROLOGIST COHb 1.7 <3.0 % 03/14/2021 MKTO 5:51 AM PEDIATRIC NEUROLOGIST MetHb 0.1 <1.5 % 03/14/2021 MKTO 5:51 AM PEDIATRIC NEUROLOGIST CtO2 11.3 (L) 18.0 - 03/14/2021 MKTO 21.0 vol % 5:51 AM PEDIATRIC NEUROLOGIST Arterial Art Line 03/14/2021 MKTO Sample Site 5:51 AM PEDIATRIC NEUROLOGIST Specimen Anatomical Collection Method Collection Time Receive d Time (Source) Location / / Volume Laterality Blood (Blood, 03/14/2021 5:41 AM 03/14/20 5:48 Arterial) PEDIATRIC NEUROLOGIST AM PEDIATRIC NEUROLOGIST Katrin Thomas APRN.N.P., M.S.N. LAB BLOOD NON A DD-ON Performing Organization Address City/State/ZIP Code Phon e Number [facility]- [address] [place] [address] [place] [address] (ABNORMAL) Basic Metabolic Panel (03/14/2021 5:41 AM PEDIATRIC NEUROLOGIST) P athologist Signature Potassium, P 3.2 (L) 3.6 - 5.2 03/14/2021 MKTO mmol/L 6:11 AM PEDIATRIC NEUROLOGIST Sodium, P 135 135 - 145 03/14/2021 MKTO mmol/L 6:11 AM PEDIATRIC NEUROLOGIST Chloride, P 103 98 - 107 03/14/2021 MKTO mmol/L 6:11 AM PEDIATRIC NEUROLOGIST Bicarbonate, P 19 (L) 22 - 29 03/14/2021 MKTO mmol/L 6:11 AM PEDIATRIC NEUROLOGIST Anion Gap, P 13 7 - 15 03/14/2021 MKTO 6:11 AM PEDIATRIC NEUROLOGIST BUN (Blood Urea 11 6 - 21 03/14/2021 MKTO Nitrogen), P mg/dL 6:11 AM PEDIATRIC NEUROLOGIST Creatinine 0.60 0.59 - 03/14/2021 MKTO 1.04 mg/dL 6:11 AM PEDIATRIC NEUROLOGIST eGFR-Black/Afri >90 >=60 03/14/2021 MKTO can Welsh mL/min/BSA 6:11 AM PEDIATRIC NEUROLOGIST Comment: ----ADDITIONAL INFORMATION---- Estimated GFR calculated using the 2009 CKD_EPI creatinine equation. eGFR Non-Black/ >90 >=60 mL/min/BSA 03/14/2021 6:11 AM PEDIATRIC NEUROLOGIST MKTO Comment: ----ADDITIONAL INFORMATION---- Estimated GFR calculated using the 2009 CKD_EPI creatinine equation. Calcium, Total, P 8.9 8.6 - 10.0 mg/dL 03/14/2021 6:11 AM PEDIATRIC NEUROLOGIST MKTO Glucose, P 124 70 - 140 mg/dL 03/14/2021 6:11 AM PEDIATRIC NEUROLOGIST M KTO Specimen Anatomical Collection Method Collection Time Receive d Time (Source) Location / / Volume Laterality Blood (Blood, 03/14/2021 5:41 AM 03/14/20 5:48 Venous) PEDIATRIC NEUROLOGIST AM PEDIATRIC NEUROLOGIST Katrin Thomas APRN.N.P., M.S.N. LAB BLOOD ADD-O N Performing Organization Address City/State/ZIP Code Phon e Number [facility]- [address] [place] [phone] [place] [address] [place] [address] [address] (ABNORMAL) CBC without Differential (03/14/2021 5:41 AM PEDIATRIC NEUROLOGIST) [facility] gist Method Time Signature Hemoglobin 7.9 (L) 11.6 - 03/14/2021 MKTO 15.0 g/dL 6:11 AM PEDIATRIC NEUROLOGIST Hematocrit 23.2 (L) 35.5 - 03/14/2021 MKTO 44.9 % 6:11 AM PEDIATRIC NEUROLOGIST Erythrocytes 2.40 (L) 3.92 - 03/14/2021 MKTO 5.13 6:11 AM PEDIATRIC NEUROLOGIST x10(12)/L MCV 96.7 78.2 - 03/14/2021 MKTO 97.9 fL 6:11 AM PEDIATRIC NEUROLOGIST RBC Distrib Width 22.8 (H) 12.2 - 03/14/2021 MKTO 16.1 % 6:11 AM PEDIATRIC NEUROLOGIST Platelet Count 90 (L) 157 - 371 03/14/2021 MKTO x10(9)/L 6:11 AM PEDIATRIC NEUROLOGIST Leukocytes 6.6 3.4 - 9.6 03/14/2021 MKTO x10(9)/L 6:11 AM PEDIATRIC NEUROLOGIST Specimen Anatomical Collection Method Collection Time Receive d Time (Source) Location / / Volume Laterality Blood (Blood, 03/14/2021 5:41 AM 03/14/20 5:48 Venous) PEDIATRIC NEUROLOGIST AM PEDIATRIC NEUROLOGIST Nola Huitron APRN, C.N.P., M.S.N. LAB BLOOD ADD-O N Performing Organization Address [facility] Phon e Number [address] [address] [place] [address] [address] (ABNORMAL) Hepatic Function Panel (03/14/2021 5:40 AM PEDIATRIC NEUROLOGIST) [facility] gist Method Time Signature Bilirubin, Total, P 6.0 (H) <=1.2 03/14/2021 MKTO mg/dL 10:49 AM PEDIATRIC NEUROLOGIST Bilirubin, Direct, P 2.5 (H) 0.0 - 0.3 03/14/2021 MKTO mg/dL 10:49 AM PEDIATRIC NEUROLOGIST Aspartate 48 (H) 8 - 43 03/14/2021 MKTO Aminotransferase U/L 10:49 AM PEDIATRIC NEUROLOGIST (AST), P Alanine 10 7 - 45 03/14/2021 MKTO Aminotransferase U/L 10:49 AM PEDIATRIC NEUROLOGIST (ALT), P Alkaline 64 35 - 104 03/14/2021 MKTO Phosphatase, P U/L 10:49 AM PEDIATRIC NEUROLOGIST Albumin, P 4.3 3.5 - 5.0 03/14/2021 MKTO g/dL 10:49 AM PEDIATRIC NEUROLOGIST Protein, Total, P 5.7 (L) 6.3 - 7.9 03/14/2021 MKTO g/dL 10:49 AM PEDIATRIC NEUROLOGIST Specimen Anatomical Collection Method Collection Time Receive d Time (Source) Location / / Volume Laterality Blood (Blood, 03/14/2021 5:40 AM 03/14/20 21 Venous) PEDIATRIC NEUROLOGIST 10:24 AM PEDIATRIC NEUROLOGIST Leslie Kwong M.D. LAB BLOOD ADD-ON Performing Organization Address City/[facility]/ZIP Code Phon e Number [facility]- [address] [place] [phone] [place] [address] [facility] [facility] in [address] DX Chest Portable 1 View (03/14/2021 4:33 AM PEDIATRIC NEUROLOGIST) Anatomical Region Laterality Modality Chest, Thoracic RST LOS, Thoracic ARZ LOS, Thoracic N/A Digital Radiography FLA LOS Specimen (Source) Anatomical Collection Method Collection Time Re ceived Time Location / / Volume Laterality 03/14/2021 7:56 AM PEDIATRIC NEUROLOGIST Impressions 03/14/2021 7:58 AM PEDIATRIC NEUROLOGIST Persistent areas of bibasilar atelectasis or infiltrate more prominent on the right. Narrative 03/14/2021 7:58 AM PEDIATRIC NEUROLOGIST EXAM: DX CHEST PORTABLE 1 VIEW COMPARISON: [...] PROCE PERCY Glucose, POCT (03/14/2021 12:06 AM PEDIATRIC NEUROLOGIST) P athologist Signature Glucose, POCT, 116 70 - 140 03/14/2021 MK B mg/dL 12:06 AM PEDIATRIC NEUROLOGIST Specimen Anatomical Collection Method Collection Time Receive d Time (Source) Location / / Volume Laterality Blood 03/14/2021 12:06 03/14/2021 AM PEDIATRIC NEUROLOGIST 12:23 AM PEDIATRIC NEUROLOGIST Generic Rals LAB POCT ORDERABLES-MANUAL Performing Organization Address City/State/ZIP Code Phon e Number [facility]- [address] [place] [phone] [place] [address] System [address] (ABNORMAL) Hemoglobin (03/13/2021 6:29 PM PEDIATRIC NEUROLOGIST) athologist Signature Hemoglobin 8.0 (L) 11.6 - 15.0 03/13/2021 MKTO g/dL 6:45 PM PEDIATRIC NEUROLOGIST Specimen Anatomical Collection Method Collection Time Receive d Time (Source) Location / / Volume Laterality Blood (Blood, 03/13/2021 6:29 PM 03/13/20 6:40 Venous) PEDIATRIC NEUROLOGIST PM PEDIATRIC NEUROLOGIST Tariq CheryBSumaSSuma LAB BLOOD ADD-ON Performing Organization Address City/[facility]/ZIP Code Phon e Number [facility]- [address] [place] [address] [place] [address] [address] Glucose, POCT (03/13/2021 6:16 PM PEDIATRIC NEUROLOGIST) athologist Signature Glucose, POCT, 112 70 - 140 03/13/2021 MKTO B mg/dL 6:16 PM PEDIATRIC NEUROLOGIST Specimen Anatomical Collection Method Collection Time Receive d Time (Source) Location / / Volume Laterality Blood 03/13/2021 6:16 PM PEDIATRIC NEUROLOGIST 11:28 PM PEDIATRIC NEUROLOGIST Generic Rals LAB POCT ORDERABLES-MANUAL Performing Organization Address [facility] Phon e Number [facility]- [address] [place] [address] [place] [address] [address] (ABNORMAL) Hemoglobin (03/13/2021 4:28 PM PEDIATRIC NEUROLOGIST) athologist Signature Hemoglobin 8.0 (L) 11.6 - 15.0 03/13/2021 MKTO g/dL 4:39 PM PEDIATRIC NEUROLOGIST Specimen Anatomical Collection Method Collection Time Receive d Time (Source) Location / / Volume Laterality Blood (Blood, 03/13/2021 4:28 PM 03/13/20 4:35 Arterial) PEDIATRIC NEUROLOGIST PM PEDIATRIC NEUROLOGIST Tariq CehryB.SSuma LAB BLOOD ADD-ON Performing Organization Address City/[facility]/ZIP Code Phon e Number [facility]- [address] [place] [address] [place] [address] System in [address] Transfuse Red Blood Cells : (03/13/2021 12:13 PM PEDIATRIC NEUROLOGIST) Tariq CheryBSumaSSuma BLOOD TRANSFUSION ORDERABLES Transfuse Red Blood Cells : , 1 Units (03/13/2021 12:13 PM PEDIATRIC NEUROLOGIST) Tariq CheryB.S. BLOOD TRANSFUSION ORDERABLES Glucose, POCT (03/13/2021 11:46 AM PEDIATRIC NEUROLOGIST) P athologist Signature Glucose, POCT, 130 70 - 140 03/13/2021 MKTO B mg/dL 11:46 AM PEDIATRIC NEUROLOGIST Specimen Anatomical Collection Method Collection Time Receive d Time (Source) Location / / Volume Laterality Blood 03/13/2021 11:46 03/13/2021 AM PEDIATRIC NEUROLOGIST 11:54 AM PEDIATRIC NEUROLOGIST Generic Rals LAB POCT ORDERABLES-MANUAL Performing Organization Address [facility] Phon e Number [address] [address] [place] [address] [address] (ABNORMAL) Ferritin (03/13/2021 8:28 AM PEDIATRIC NEUROLOGIST) P athologist Signature Ferritin, S 801 (H) 6 - 175 03/13/2021 MKTO mcg/L 10:15 AM PEDIATRIC NEUROLOGIST Comment: Biotin has been identified by the [facility]elle [facility] as a potential interfering substance. ??Higher concentr ations of biotin may be found in multivitamins, hair/nail supple ments, and workout supplements. ??If the result does not [facility] clinical observations, repeat testing after patient refrains fr om the use of supplements for at least 12 hours. Specimen Anatomical Collection Method Collection Time Receive d Time (Source) Location / / Volume Laterality Blood (Blood, 03/13/2021 8:28 AM 03/13/20 21 8:32 Venous) PEDIATRIC NEUROLOGIST AM PEDIATRIC NEUROLOGIST Tariq CheryB.S. LAB BLOOD ADD-ON Performing Organization Address City/[facility] Phon e Number [address] [address] [place] [address] [address] (ABNORMAL) Folate (03/13/2021 8:28 AM PEDIATRIC NEUROLOGIST) athologist Signature Folate, S 2.8 (L) >=4.0 mcg/L 03/13/2021 MKTO 2:38 PM PEDIATRIC NEUROLOGIST Comment: Biotin has been identified by the [facility] as a potential interfering substance. ??Higher concentr ations of biotin may be found in multivitamins, hair/nail supple ments, and workout supplements. ??If the result does not [facility] clinical observations, repeat testing after patient refrains fr om the use of supplements for at least 12 hours. Specimen Anatomical Collection Method Collection Time Receive d Time (Source) Location / / Volume Laterality Blood (Blood, 03/13/2021 8:28 AM 03/13/20 8:32 Venous) PEDIATRIC NEUROLOGIST AM PEDIATRIC NEUROLOGIST Tariq CheryB.S. LAB BLOOD ADD-ON Performing Organization Address City/[facility] Phon e Number [address] [place] [address] System in [address] Vitamin B12 Assay (03/13/2021 8:28 AM PEDIATRIC NEUROLOGIST) athologist Signature Vitamin B12 690 345 - 1246 03/13/2021 MKTO Assay, S ng/L 4:13 PM PEDIATRIC NEUROLOGIST Comment: Biotin has been identified by the [facility] as a potential interfering substance. ??Higher concentr ations of biotin may be found in multivitamins, hair/nail supple ments, and workout supplements. ??If the result does not [facility] clinical observations, repeat testing after patient refrains fr om the use of supplements for at least 12 hours. Specimen Anatomical Collection Method Collection Time Receive d Time (Source) Location / / Volume Laterality Blood (Blood, 03/13/2021 8:28 AM 03/13/20 8:32 Venous) PEDIATRIC NEUROLOGIST AM PEDIATRIC NEUROLOGIST Tariq CheryB.S. LAB BLOOD ADD-ON Performing Organization Address City/[facility]/ZIP [facility] Phon e Number [address] [address] [place] [address] [address] (ABNORMAL) Iron and Total Iron-Binding Capacity (03/13/2021 8:28 AM PEDIATRIC NEUROLOGIST) athologist Signature Iron 77 35 - 145 03/13/2021 MKTO mcg/dL 10:15 AM PEDIATRIC NEUROLOGIST Total Iron 68 (L) 250 - 400 03/13/2021 MKTO Binding mcg/dL 10:15 AM PEDIATRIC NEUROLOGIST Capacity Percent >90 (H) 14 - 50 % 03/13/2021 MKTO Saturation 10:15 AM PEDIATRIC NEUROLOGIST Specimen Anatomical Collection Method Collection Time Receive d Time (Source) Location / / Volume Laterality Blood (Blood, 03/13/2021 8:28 AM 03/13/20 8:32 Venous) PEDIATRIC NEUROLOGIST AM PEDIATRIC NEUROLOGIST Tariq Santillan LAB BLOOD ADD-ON Performing Organization Address City/State/ZIP Code Phon e Number [address] [address] [place] [address] Patient Status (03/13/2021 5:37 AM PEDIATRIC NEUROLOGIST) athologist Signature FIO2 0.30 0.21=AIR 03/13/2021 5:56 MKTO AM PEDIATRIC NEUROLOGIST Specimen Anatomical Collection Method Collection Time Receive d Time (Source) Location / / Volume Laterality Blood 03/13/2021 5:37 AM 5:50 PEDIATRIC NEUROLOGIST AM PEDIATRIC NEUROLOGIST Ivan Lazo D.O. LAB BLOOD NON ADD-ON Performing Organization Address City/State/ZIP Code Phon e Number [address] [address] [place] [address] (ABNORMAL) Blood Gas with Coox, Arterial (03/13/2021 5:37 AM PEDIATRIC NEUROLOGIST) athologist Signature P O2 141 (H) 83 - 108 03/13/2021 MKTO mm Hg 5:56 AM PEDIATRIC NEUROLOGIST P CO2 30 (L) 32 - 45 mm 03/13/2021 MKTO Hg 5:56 AM PEDIATRIC NEUROLOGIST pH 7.46 (H) 7.35 - 03/13/2021 MKTO 7.45 pH 5:56 AM PEDIATRIC NEUROLOGIST Base Excess -2 -2 - 3 03/13/2021 MKTO mmol/L 5:56 AM PEDIATRIC NEUROLOGIST HCO3 21 (L) 22 - 26 03/13/2021 MKTO mmol/L 5:56 AM PEDIATRIC NEUROLOGIST Hemoglobin, B 7.2 (L) 11.6 - 03/13/2021 MKTO 15.0 g/dL 5:56 AM PEDIATRIC NEUROLOGIST O2Hb 97.9 94.0 - 03/13/2021 MKTO 98.0 % 5:56 AM PEDIATRIC NEUROLOGIST COHb 1.5 <3.0 % 03/13/2021 MKTO 5:56 AM PEDIATRIC NEUROLOGIST MetHb 0.0 <1.5 % 03/13/2021 MKTO 5:56 AM PEDIATRIC NEUROLOGIST CtO2 10.3 (L) 18.0 - 03/13/2021 MKTO 21.0 vol % 5:56 AM PEDIATRIC NEUROLOGIST Arterial Art Line 03/13/2021 MKTO Sample Site 5:56 AM PEDIATRIC NEUROLOGIST Specimen Anatomical Collection Method Collection Time Receive d Time (Source) Location / / Volume Laterality Blood (Blood, 03/13/2021 5:37 AM 03/13/20 5:50 Arterial) PEDIATRIC NEUROLOGIST AM PEDIATRIC NEUROLOGIST Ivan Lazo D.O. LAB BLOOD NON ADD-ON Performing Organization Address City/[facility] Phon e Number [address] [address] [place] [address] Phosphorus Inorganic (03/13/2021 5:37 AM PEDIATRIC NEUROLOGIST) P athologist Signature Phosphorus 3.1 2.5 - 4.5 03/13/2021 MKTO (Inorganic), P mg/dL 6:17 AM PEDIATRIC NEUROLOGIST Specimen Anatomical Collection Method Collection Time Receive d Time (Source) Location / / Volume Laterality Blood (Blood, 03/13/2021 5:37 AM 03/13/20 5:50 Venous) PEDIATRIC NEUROLOGIST AM PEDIATRIC NEUROLOGIST Barrera Vargas M.D. LAB BLOOD ADD-ON Performing Organization Address City/[facility] Code Phon e Number [facility]- [address] [place] [address] [place] [address] [address] (ABNORMAL) Magnesium (03/13/2021 5:37 AM PEDIATRIC NEUROLOGIST) P athologist Signature Magnesium, P 2.6 (H) 1.7 - 2.3 03/13/2021 MKTO mg/dL 6:17 AM PEDIATRIC NEUROLOGIST Specimen Anatomical Collection Method Collection Time Receive d Time (Source) Location / / Volume Laterality Blood (Blood, 03/13/2021 5:37 AM 03/13/20 5:50 Venous) PEDIATRIC NEUROLOGIST AM PEDIATRIC NEUROLOGIST Barrera Vargas M.D. LAB BLOOD ADD-ON Performing Organization Address City/[facility]/ZIP [facility] Phon e Number [facility]- [address] [place] [address] [facility] [place] [address] System in [address] Triglycerides (03/13/2021 5:37 AM PEDIATRIC NEUROLOGIST) P athologist Signature Triglycerides 127 mg/dL 03/13/2021 MKTO 6:17 AM PEDIATRIC NEUROLOGIST Comment: ----REFERENCE VALUE---- Normal: <150 Borderline high: 150-199 High: 200-499 Very high: > or =500 Specimen Anatomical Collection Method Collection Time Receive d Time (Source) Location / / Volume Laterality Blood (Blood, 03/13/2021 5:37 AM 03/13/20 5:50 Venous) PEDIATRIC NEUROLOGIST AM PEDIATRIC NEUROLOGIST Barrera Vargas M.D. LAB BLOOD ADD-ON Performing Organization Address City/State/[facility] Phon e Number [facility]- [address] [place] [phone] [place] [address] (ABNORMAL) Comprehensive Metabolic Panel (03/13/2021 5:37 AM PEDIATRIC NEUROLOGIST) Analysis Performed At Patho logist Time Signature Potassium, P 3.9 3.6 - 5.2 03/13/2021 MKTO mmol/L 6:17 AM PEDIATRIC NEUROLOGIST Sodium, P 135 135 - 145 03/13/2021 MKTO mmol/L 6:17 AM PEDIATRIC NEUROLOGIST Chloride, P 103 98 - 107 03/13/2021 MKTO mmol/L 6:17 AM PEDIATRIC NEUROLOGIST Bicarbonate, P 20 (L) 22 - 29 03/13/2021 MKTO mmol/L 6:17 AM PEDIATRIC NEUROLOGIST Anion Gap, P 12 7 - 15 03/13/2021 MKTO 6:17 AM PEDIATRIC NEUROLOGIST BUN (Blood Urea 8 6 - 21 03/13/2021 MKTO Nitrogen), P mg/dL 6:17 AM PEDIATRIC NEUROLOGIST Creatinine 0.56 (L) 0.59 - 03/13/2021 MKTO 1.04 mg/dL 6:17 AM PEDIATRIC NEUROLOGIST eGFR-Black/Afri >90 >=60 03/13/2021 MKTO can Welsh mL/min/BSA 6:17 AM PEDIATRIC NEUROLOGIST Comment: ----ADDITIONAL INFORMATION---- Estimated GFR calculated using the 2009 CKD_EPI creatinine equation. eGFR Non-Black/ >90 >=60 mL/min/BSA 03/13/2021 6:17 AM PEDIATRIC NEUROLOGIST MKTO Comment: ----ADDITIONAL INFORMATION---- Estimated GFR calculated using the 2009 CKD_EPI creatinine equation. Calcium, Total, P 9.0 8.6 - 10.0 mg/dL 03/13/2021 6:17 AM PEDIATRIC NEUROLOGIST MKTO Glucose, P 115 70 - 140 mg/dL 03/13/2021 6:17 AM PEDIATRIC NEUROLOGIST M KTO Protein, Total, P 5.7 (L) 6.3 - 7.9 g/dL 03/13/2021 6:17 A M PEDIATRIC NEUROLOGIST MKTO Albumin, P 3.9 3.5 - 5.0 g/dL 03/13/2021 6:17 AM PEDIATRIC NEUROLOGIST M KTO Aspartate Aminotransferase 64 (H) 8 - 43 U/L 03/13/2021 6 :17 AM PEDIATRIC NEUROLOGIST MKTO (AST), P Alkaline Phosphatase, P 90 35 - 104 U/L 03/13/2021 6: 17 AM PEDIATRIC NEUROLOGIST MKTO Alanine Aminotransferase 14 7 - 45 U/L 03/13/2021 6:1 7 AM PEDIATRIC NEUROLOGIST MKTO (ALT), P Bilirubin, Total, P 6.1 (H) <=1.2 mg/dL 03/13/2021 6:17 AM PEDIATRIC NEUROLOGIST MKTO Specimen Anatomical Collection Method Collection Time Receive d Time (Source) Location / / Volume Laterality Blood (Blood, 03/13/2021 5:37 AM 03/13/20 21 5:50 Venous) PEDIATRIC NEUROLOGIST AM PEDIATRIC NEUROLOGIST Barrera Vargas M.D. LAB BLOOD ADD-ON Performing Organization Address City/State/ZIP Code Phon e Number [facility]- [address] [place] [phone] [place] [address] System in [place] [address] [place] [address] (ABNORMAL) CBC with Differential, Blood (03/13/2021 5:37 AM PEDIATRIC NEUROLOGIST) [facility] Method Time Signature Hemoglobin 7.1 (L) 11.6 - 03/13/2021 MKTO 15.0 g/dL 7:27 AM PEDIATRIC NEUROLOGIST Hematocrit 21.0 (L) 35.5 - 03/13/2021 MKTO 44.9 % 7:27 AM PEDIATRIC NEUROLOGIST Erythrocytes 2.11 (L) 3.92 - 03/13/2021 MKTO 5.13 7:27 AM PEDIATRIC NEUROLOGIST x10(12)/L MCV 99.5 (H) 78.2 - 03/13/2021 MKTO 97.9 fL 7:27 AM PEDIATRIC NEUROLOGIST RBC Distrib Width 20.1 (H) 12.2 - 03/13/2021 MKTO 16.1 % 7:27 AM PEDIATRIC NEUROLOGIST Platelet Count 101 (L) 157 - 371 03/13/2021 MKTO x10(9)/L 7:27 AM PEDIATRIC NEUROLOGIST Leukocytes 8.4 3.4 - 9.6 03/13/2021 MKTO x10(9)/L 7:27 AM PEDIATRIC NEUROLOGIST Neutrophils 6.72 (H) 1.56 - 03/13/2021 MKTO 6.45 7:27 AM PEDIATRIC NEUROLOGIST x10(9)/L Lymphocytes 0.85 (L) 0.95 - 03/13/2021 MKTO 3.07 7:27 AM PEDIATRIC NEUROLOGIST x10(9)/L Monocytes 0.86 (H) 0.26 - 03/13/2021 MKTO 0.81 7:27 AM PEDIATRIC NEUROLOGIST x10(9)/L Eosinophils <0.03 0.03 - 03/13/2021 MKTO 0.48 7:27 AM PEDIATRIC NEUROLOGIST x10(9)/L Basophils <0.03 0.01 - 03/13/2021 MKTO 0.08 7:27 AM PEDIATRIC NEUROLOGIST x10(9)/L Specimen Anatomical Collection Method Collection Time Receive d Time (Source) Location / / Volume Laterality Blood (Blood, 03/13/2021 5:37 AM 03/13/20 5:50 Venous) PEDIATRIC NEUROLOGIST AM PEDIATRIC NEUROLOGIST Barrera Vargas M.D. LAB BLOOD ADD-ON Performing Organization Address City/[facility]/ZIP Code Phon e Number [address] [address] [place] [address] (ABNORMAL) Ammonia (03/13/2021 5:37 AM PEDIATRIC NEUROLOGIST) P athologist Signature Ammonia, P 110 (H) <=51 03/13/2021 MKTO mcmol/L 6:16 AM PEDIATRIC NEUROLOGIST Specimen Anatomical Collection Method Collection Time Receive d Time (Source) Location / / Volume Laterality Blood (Blood, 03/13/2021 5:37 AM 03/13/20 5:49 Venous) PEDIATRIC NEUROLOGIST AM PEDIATRIC NEUROLOGIST Barrera Vargas M.D. LAB BLOOD NON ADD-ON Performing Organization Address City/[facility] Phon e Number [address] [address] [place] [address] DX Chest Portable 1 View (03/13/2021 4:32 AM PEDIATRIC NEUROLOGIST) Anatomical Region Laterality Modality Chest, Thoracic RST LOS, Thoracic ARZ LOS, Thoracic N/A Digital Radiography FLA LOS Specimen (Source) Anatomical Collection Method Collection Time Re ceived Time Location / / Volume Laterality 03/13/2021 8:07 AM PEDIATRIC NEUROLOGIST Impressions 03/13/2021 8:08 AM PEDIATRIC NEUROLOGIST Persistent right basilar infiltrate or a telectasis. Narrative 03/13/2021 8:08 AM PEDIATRIC NEUROLOGIST EXAM: DX CHEST PORTABLE 1 VIEW COMPARISON: [...] a telectasis. Ivan PERALES DIAGNOSTIC IMAGING PROCE MARKALPESH (ABNORMAL) Basic Metabolic Panel (03/13/2021 1:20 AM PEDIATRIC NEUROLOGIST) Analysis Performed At Patho logist Time Signature Potassium, P 2.9 (L) 3.6 - 5.2 03/13/2021 MKTO mmol/L 1:58 AM PEDIATRIC NEUROLOGIST Sodium, P 134 (L) 135 - 145 03/13/2021 MKTO mmol/L 1:58 AM PEDIATRIC NEUROLOGIST Chloride, P 99 98 - 107 03/13/2021 MKTO mmol/L 1:58 AM PEDIATRIC NEUROLOGIST Bicarbonate, P 20 (L) 22 - 29 03/13/2021 MKTO mmol/L 1:58 AM PEDIATRIC NEUROLOGIST Anion Gap, P 15 7 - 15 03/13/2021 MKTO 1:58 AM PEDIATRIC NEUROLOGIST BUN (Blood Urea 8 6 - 21 03/13/2021 MKTO Nitrogen), P mg/dL 1:58 AM PEDIATRIC NEUROLOGIST Creatinine 0.56 (L) 0.59 - 03/13/2021 MKTO 1.04 mg/dL 1:58 AM PEDIATRIC NEUROLOGIST eGFR-Black/Afri >90 >=60 03/13/2021 MKTO can Welsh mL/min/BSA 1:58 AM PEDIATRIC NEUROLOGIST Comment: ----ADDITIONAL INFORMATION---- Estimated GFR calculated using the 2009 CKD_EPI creatinine equation. eGFR Non-Black/ >90 >=60 mL/min/BSA 03/13/2021 1:58 AM PEDIATRIC NEUROLOGIST MKTO Comment: ----ADDITIONAL INFORMATION---- Estimated GFR calculated using the 2009 CKD_EPI creatinine equation. Calcium, Total, P 8.9 8.6 - 10.0 mg/dL 03/13/2021 1:58 AM PEDIATRIC NEUROLOGIST MKTO Glucose, P 120 70 - 140 mg/dL 03/13/2021 1:58 AM PEDIATRIC NEUROLOGIST [facility] Spec[facility] Anatomical Collection Method Collection Time Receive d Time (Source) Location / / Volume Laterality Blood (Blood, 03/13/2021 1:20 AM 03/13/20 21 1:23 Venous) PEDIATRIC NEUROLOGIST AM PEDIATRIC NEUROLOGIST Ivan Lazo D.O. LAB BLOOD ADD-ON Performing Organization Address City/State/ZIP [facility] [place] Phon e Number [facility]- [address] [place] [phone] [place] [address] (ABNORMAL) Hemoglobin (03/13/2021 12:11 AM PEDIATRIC NEUROLOGIST) athologist Signature Hemoglobin 7.4 (L) 11.6 - 15.0 03/13/2021 MKTO g/dL 12:18 AM PEDIATRIC NEUROLOGIST Specimen Anatomical Collection Method Collection Time Receive d Time (Source) Location / / Volume Laterality Blood (Blood, 03/13/2021 12:11 03/13/2021 Venous) AM PEDIATRIC NEUROLOGIST 12:15 AM PEDIATRIC NEUROLOGIST Barrera Vargas M.D. LAB BLOOD ADD-ON Performing Organization Address City/[facility]/ZIP Code Phon e Number [facility]- [address] [place] [address] [place] [address] System in [address] Glucose, POCT (03/12/2021 11:44 PM PEDIATRIC NEUROLOGIST) athologist Signature Glucose, POCT, 120 70 - 140 03/12/2021 MKTO B mg/dL 11:44 PM PEDIATRIC NEUROLOGIST Specimen Anatomical Collection Method Collection Time Receive d Time (Source) Location / / Volume Laterality Blood 03/12/2021 11:44 03/12/2021 PM PEDIATRIC NEUROLOGIST 11:51 PM PEDIATRIC NEUROLOGIST Generic Rals LAB POCT ORDERABLES-MANUAL Performing Organization Address City/[facility]/ZIP [facility] Phon e Number [facility]- [address] [place] [phone] [place] [address] System in [address] Ethyl Glucuronide Screen with Reflex, Urine (03/12/2021 11:12 PM PEDIATRIC NEUROLOGIST) [facility] gist Method Time Signature Ethyl Negative Cutoff: 03/14/2021 [facility] Glucuronide Scrn 500 ng/mL 9:46 AM PEDIATRIC NEUROLOGIST w/Reflex, U Comment: ----ADDITIONAL INFORMATION---- This test [...] 03/12/2021 11:12 03/14/2021 8:00 Clean Catch) PM PEDIATRIC NEUROLOGIST AM PEDIATRIC NEUROLOGIST Sera Morgan P.A.-C. LAB URINE ORDERABLES Performing Organization Address City/State/ZIP Code Phon e Number [facility] [address] [place], [place] [address] [facility] [place] [address] Laboratory Medicine and Pathology [address] [place] INTUB W ETT, LDA ANE ENDOTRACHEAL AIRWAY (03/12/2021 10:30 PM PEDIATRIC NEUROLOGIST) Narrative Barrera To M.D. - 2020 10:30 PM PEDIATRIC NEUROLOGIST Barrera To M.D. ? 03/12/2021 ??6:07 PM Intubation Date/Time: 03/12/2021 10:30 PM Performed by: Barrera To M.D. Authorized by: Barrera To M.D. Patient location during procedure: ICU / PCU PROCEDURE DETAILS: Mask difficulty assessment: easy mask Final airway type: video laryngoscope Laryngeal Manipulation: no ?? Final best view of glottic structures - Cormack/Lehane Score: grade 2A ETT location: oral VL device: glide scope [place] scope blade size: 3 Adult tube size: [...] ORDERABLES (ABNORMAL) Glucose, POCT (03/12/2021 6:11 PM PEDIATRIC NEUROLOGIST) P athologist Signature Glucose, POCT, 170 (H) 70 - 140 03/12/2021 MKTO B mg/dL 6:11 PM PEDIATRIC NEUROLOGIST Specimen Anatomical Collection Method Collection Time Receive d Time (Source) Location / / Volume Laterality Blood 03/12/2021 6:11 PM 6:23 PEDIATRIC NEUROLOGIST PM PEDIATRIC NEUROLOGIST Generic Rals LAB POCT ORDERABLES-MANUAL Performing Organization Address City/State/ZIP Code Phon e Number [facility]- [address] [place] [phone] [place] [address] System in [place] [id number] [facility] [place] PARACENTESIS ABD WO IMG (03/12/2021 6:02 PM PEDIATRIC NEUROLOGIST) Narrative Barrera To M.D. - 2020 6:02 PM PEDIATRIC NEUROLOGIST Barrera To M.D. ? 03/12/2021 ??6:07 PM [...] PROCEDURE/MINOR SURGICAL ORDERABLES THORACENTESIS (03/12/2021 6:02 PM PEDIATRIC NEUROLOGIST) Narrative Barrera To M.D. - 2020 6:02 PM PEDIATRIC NEUROLOGIST Barrear To M.D. ? 03/12/2021 ??6:07 PM Thoracentesis Date/Time: 03/12/2021 6:02 PM Performed by: Barrera To M.D. Authorized by: Barrera To M.D. PROCEDURE DETAILS Location: right mid-axillary Intercostal space: 3rd Puncture method: [id number] cathete r Number of attempts: 1 Drainage [...] lidocaine Barrera Vargas M.D. PROCEDURE/MINOR SURGICAL ORDERABLES ND INS NON-ALEN CVC >5YR, ND US GUIDE VASC ACCESS, LDA ANE CENTRAL LINE TRIPLE LUMEN, MC ANE CENTRAL LINE GENERIC PERFORMABLE (03/12/2021 6:02 PM PEDIATRIC NEUROLOGIST) Narrative Barrera To M.D. - 2020 6:02 PM PEDIATRIC NEUROLOGIST Barrera To M.D. ? 03/12/2021 ??6:07 PM [...] Red Blood Cells : (03/12/2021 5:39 PM PEDIATRIC NEUROLOGIST) Barrera Vargas M.D. BLOOD TRANSFUSION ORDERA BLES Transfuse Red Blood Cells : , 1 Units (03/12/2021 5:39 PM PEDIATRIC NEUROLOGIST) Barrera Vargas M.D. BLOOD TRANSFUSION ORDERA BLES (ABNORMAL) Hemoglobin (03/12/2021 5:35 PM PEDIATRIC NEUROLOGIST) athologist Signature Hemoglobin 7.6 (L) 11.6 - 15.0 03/12/2021 MKTO g/dL 5:50 PM PEDIATRIC NEUROLOGIST Specimen Anatomical Collection Method Collection Time Receive d Time (Source) Location / / Volume Laterality Blood (Blood, 03/12/2021 5:35 PM 03/12/20 5:46 Venous) PEDIATRIC NEUROLOGIST PM PEDIATRIC NEUROLOGIST Barrera Vargas M.D. LAB BLOOD ADD-ON Performing Organization Address City/[facility]/ZIP Code Phon e Number [facility]- [address] [place] [id number] [place] [address] [address] Calcium, Ionized (03/12/2021 5:35 PM PEDIATRIC NEUROLOGIST) athologist Signature Calcium, 4.70 4.65 - 5.30 03/12/2021 [facility]TO Ionized, B mg/dL 5:49 PM PEDIATRIC NEUROLOGIST Specimen Anatomical Collection Method Collection Time Receive d Time (Source) Location / / Volume Laterality Blood 03/12/2021 5:35 PM 1 5:46 PEDIATRIC NEUROLOGIST PM PEDIATRIC NEUROLOGIST Barrera Vargas M.D. LAB BLOOD NON ADD-ON Performing Organization Address City/[facility]/ZIP Code Phon e Number [facility]- [address] [place] [phone] [facility] [place] [address] (ABNORMAL) pH (03/12/2021 5:35 PM PEDIATRIC NEUROLOGIST) athologist Signature pH 7.46 (H) 7.35 - 7.45 03/12/2021 MKTO pH 5:49 PM PEDIATRIC NEUROLOGIST Specimen Anatomical Collection Method Collection Time Receive d Time (Source) Location / / Volume Laterality Blood 03/12/2021 5:35 PM 5:46 PEDIATRIC NEUROLOGIST PM PEDIATRIC NEUROLOGIST Barrera Vargas M.D. LAB HISTORICAL ORDERS Performing Organization Address City/State/ZIP Code Phon e Number [facility]- [address] [place] [phone] [place] [address] (ABNORMAL) Ammonia (03/12/2021 5:35 PM PEDIATRIC NEUROLOGIST) P athologist Signature Ammonia, P 80 (H) <=51 03/12/2021 MKTO mcmol/L 6:06 PM PEDIATRIC NEUROLOGIST Specimen Anatomical Collection Method Collection Time Receive d Time (Source) Location / / Volume Laterality Blood (Blood, 03/12/2021 5:35 PM 03/12/20 5:46 Venous) PEDIATRIC NEUROLOGIST PM PEDIATRIC NEUROLOGIST Barrera Vargas M.D. LAB BLOOD NON ADD-ON Performing Organization Address City/[facility]/ZIP Code Phon e Number [facility]- [address] [place] [phone] [place] [address] [address] [place] [address] (ABNORMAL) Phosphorus Inorganic (03/12/2021 5:35 PM PEDIATRIC NEUROLOGIST) P athologist Signature Phosphorus 4.6 (H) 2.5 - 4.5 03/12/2021 MKTO (Inorganic), P mg/dL 6:07 PM PEDIATRIC NEUROLOGIST Specimen Anatomical Collection Method Collection Time Receive d Time (Source) Location / / Volume Laterality Blood (Blood, 03/12/2021 5:35 PM 03/12/20 5:46 Venous) PEDIATRIC NEUROLOGIST PM PEDIATRIC NEUROLOGIST Barrera Vargas M.D. LAB BLOOD ADD-ON Performing Organization Address City/State/ZIP Code Phon e Number [facility]- [address] [place] [phone] [place] [address] System in [address] (ABNORMAL) Magnesium (03/12/2021 5:35 PM PEDIATRIC NEUROLOGIST) P athologist Signature Magnesium, P 3.7 (H) 1.7 - 2.3 03/12/2021 MK[facility] mg/dL 6:07 PM PEDIATRIC NEUROLOGIST Specimen Anatomical Collection Method Collection Time Receive d Time (Source) Location / / Volume Laterality Blood (Blood, 03/12/2021 5:35 PM 03/12/20 5:46 Venous) PEDIATRIC NEUROLOGIST PM PEDIATRIC NEUROLOGIST Barrera Vargas M.D. LAB BLOOD ADD-ON Performing Organization Address City/State/ZIP Code Phon e Number [facility]- [facility] [place] [address] [place] [address] System in [place] [address] [facility] (ABNORMAL) Comprehensive Metabolic Panel (03/12/2021 5:35 PM PEDIATRIC NEUROLOGIST) Analysis Performed At Patho logist Time Signature Potassium, P 2.5 (CL) 3.6 - 5.2 03/12/2021 MK[facility] mmol/L 6:08 PM PEDIATRIC NEUROLOGIST Sodium, P 133 (L) 135 - 145 03/12/2021 [facility] mmol/L 6:07 PM PEDIATRIC NEUROLOGIST Chloride, P 98 98 - 107 03/12/2021 [facility] mmol/L 6:07 PM PEDIATRIC NEUROLOGIST Bicarbonate, P 20 (L) 22 - 29 03/12/2021 [facility] mmol/L 6:07 PM PEDIATRIC NEUROLOGIST Anion Gap, P 15 7 - 15 03/12/2021 [facility] 6:07 PM PEDIATRIC NEUROLOGIST BUN (Blood Urea 9 6 - 21 03/12/2021 MKTO Nitrogen), P mg/dL 6:07 PM PEDIATRIC NEUROLOGIST Creatinine 0.57 (L) 0.59 - 03/12/2021 MKTO 1.04 mg/dL 6:07 PM PEDIATRIC NEUROLOGIST eGFR-Black/Afri >90 >=60 03/12/2021 MKTO can Welsh mL/min/BSA 6:07 PM PEDIATRIC NEUROLOGIST Comment: ----ADDITIONAL INFORMATION---- Estimated GFR calculated using the 2009 CKD_EPI creatinine equation. eGFR Non-Black/ >90 >=60 mL/min/BSA 03/12/2021 6:07 PM PEDIATRIC NEUROLOGIST MKTO Comment: ----ADDITIONAL INFORMATION---- Estimated GFR calculated using the 2009 CKD_EPI creatinine equation. Calcium, Total, P 8.7 8.6 - 10.0 mg/dL 03/12/2021 6:07 PM PEDIATRIC NEUROLOGIST MKTO Glucose, P 190 (H) 70 - 140 mg/dL 03/12/2021 6:07 PM PEDIATRIC NEUROLOGIST M KTO Protein, Total, P 5.5 (L) 6.3 - 7.9 g/dL 03/12/2021 6:07 P M PEDIATRIC NEUROLOGIST MKTO Albumin, P 3.4 (L) 3.5 - 5.0 g/dL 03/12/2021 6:07 PM PEDIATRIC NEUROLOGIST M KTO Aspartate Aminotransferase 66 (H) 8 - 43 U/L 03/12/2021 6 :07 PM PEDIATRIC NEUROLOGIST MKTO (AST), P Alkaline Phosphatase, P 97 35 - 104 U/L 03/12/2021 6: 07 PM PEDIATRIC NEUROLOGIST MKTO Alanine Aminotransferase 16 7 - 45 U/L 03/12/2021 6:0 7 PM PEDIATRIC NEUROLOGIST MKTO (ALT), P Bilirubin, Total, P 6.0 (H) <=1.2 mg/dL 03/12/2021 6:07 PM PEDIATRIC NEUROLOGIST MKTO Specimen Anatomical Collection Method Collection Time Receive d Time (Source) Location / / Volume Laterality Blood (Blood, 03/12/2021 5:35 PM 03/12/20 5:46 Venous) PEDIATRIC NEUROLOGIST PM PEDIATRIC NEUROLOGIST Barrera Vargas M.D. LAB BLOOD ADD-ON Performing Organization Address City/[facility] Phon e Number [phone] [place] [address] [place] [address] Bacterial Culture, Aerobic + Susc (03/12/2021 3:46 PM PEDIATRIC NEUROLOGIST) [employer] [facility] gist Method Time Signature Bacterial No growth 03/17/2021 MKTO Culture, after 5 7:38 AM PEDIATRIC NEUROLOGIST Aerobic + Susc days of incubation. Specimen Anatomical Collection Method Collection Time Receive d Time (Source) Location / / Volume Laterality Fluid 03/12/2021 3:46 PM 3:46 (Peritoneal PEDIATRIC NEUROLOGIST PM PEDIATRIC NEUROLOGIST Fluid) Comment: Specimen Source Site: Fluid Sera Morgan P.A.-C. LAB MICROBIOLOGY - GENERAL O RDERABLES Performing Organization Address City/[facility] Phon e Number [address] [address] [place] [address] Bacterial Culture, Anaerobic + Susc (03/12/2021 3:46 PM PEDIATRIC NEUROLOGIST) [facility] [facility] [employer] Method Time Signature Bacterial No growth 03/19/2021 MKTO Culture, after 7 8:26 AM PEDIATRIC NEUROLOGIST Anaerobic days of incubation. Specimen Anatomical Collection Method Collection Time Receive d Time (Source) Location / / Volume Laterality Fluid 03/12/2021 3:46 PM 1 3:46 (Peritoneal PEDIATRIC NEUROLOGIST PM PEDIATRIC NEUROLOGIST Fluid) Comment: Specimen Source Site: Fluid Sera Morgan P.A.-C. LAB MICROBIOLOGY - GENERAL O JOSE Performing Organization Address City/[facility] Phon e Number [address] [address] [place] [address] System in [address] Gram Stain (03/12/2021 3:46 PM PEDIATRIC NEUROLOGIST) [facility] Method Time Signature Gram Stain No organisms seen. 03/12/2021 MKTO White blood cells present. 6:22 PM PEDIATRIC NEUROLOGIST Stain performed on concentrated cytospin preparation. Specimen Anatomical Collection Method Collection Time Receive d Time (Source) Location / / Volume Laterality Fluid 03/12/2021 3:46 PM 1 3:46 (Peritoneal PEDIATRIC NEUROLOGIST PM PEDIATRIC NEUROLOGIST Fluid) Comment: Specimen Source Site: Fluid Sera Morgan P.A.-C. LAB MICROBIOLOGY - GENERAL O JOSE Performing Organization Address City/[facility] Phon e Number [address] [address] [place] [address] System in [address] Protein, Total, Body Fluid (03/12/2021 3:46 PM PEDIATRIC NEUROLOGIST) P athologist Signature Protein, 1.0 See Comment 03/14/2021 DTL Total, BF g/dL 10:40 AM PEDIATRIC NEUROLOGIST Comment: ----ADDITIONAL INFORMATION---- A pleural fluid total [...] ical findings. All other fluids refer to www.[email or web address] for further inter pretive information. This test has been modified from the car shifter's instructions. Its perform ance characteristics were determined by [facility] in a manner consistent with CLIA require ments. This test has not been cleared or approv ed by the U.S. Food and Drug Administration. Fluid Type, Protein, Total PERITONEAL 03/14/2021 1 0:06 AM PEDIATRIC NEUROLOGIST DTL Specimen Anatomical Collection Method Collection Time Receive d Time (Source) Location / / Volume Laterality Fluid 03/12/2021 3:46 PM 1 9:49 (Peritoneal PEDIATRIC NEUROLOGIST AM PEDIATRIC NEUROLOGIST Fluid) Sera Morgan P.A.-C. LAB BODY FLUIDS AND STOOLS O RDERABLES Performing Organization Address City/State/ZIP Code Phon e Number [facility]ORATORIES - [address] [place] [phone] [facility] [place] [address] Laboratories-[facility] [address] [facility] Cell Count and Differential, Body Fluid (03/12/2021 3:46 PM PEDIATRIC NEUROLOGIST) [employer] [facility] gist Method Time Signature Fluid Type Peritoneal/ 03/12/2021 MKTO Paracentesi 4:30 PM PEDIATRIC NEUROLOGIST s Gross Serous 03/12/2021 MKTO Appearance 4:33 PM PEDIATRIC NEUROLOGIST Total Nucleated 53 /mcL 03/12/2021 MKTO Cells 4:33 PM PEDIATRIC NEUROLOGIST Comment: ----REFERENCE VALUE---- Synovial: <150 Peritoneal: <500 [...] 63 Synovial: <70% % 03/12/2021 5:20 PM PEDIATRIC NEUROLOGIST MKTO Other Cells 6 % 03/12/2021 5:20 PM PEDIATRIC NEUROLOGIST MKTO Comment: ----REFERENCE VALUE---- The reference range and other method per formance specifications have not been established for this body fluid. The test result must be integrate d into the clinical context for interpretation. Other Cells Are: Mesothelial cells 03/12/2021 5:20 PM PEDIATRIC NEUROLOGIST MKTO Comment SeeComment 03/12/2021 4:33 PM PEDIATRIC NEUROLOGIST MKTO Comment: will be reviewed py path. Reviewed by: Dr. Fox 03/13/2021 8:07 AM PEDIATRIC NEUROLOGIST MKTO Comment: REVISED RESULTS ----PREVIOUSLY REPORTED ---- DNR, Flagged as: Normal (Reported 03/12/2021 17:20) Specimen Anatomical Collection Method Collection Time Receive d Time (Source) Location / / Volume Laterality Fluid 03/12/2021 3:46 PM 3:46 (Peritoneal PEDIATRIC NEUROLOGIST PM PEDIATRIC NEUROLOGIST Fluid) Sera Morgan P.A.-C. LAB BODY FLUIDS AND STOOLS O RDERABLES Performing Organization Address City/State/ZIP Code Phon e Number [facility]- [address] [place] [phone] [place] [address] [place] [address] System in [address] Albumin, Body Fluid (03/12/2021 3:46 PM PEDIATRIC NEUROLOGIST) P athologist Signature Albumin BF 0.7 See Comment 03/14/2021 DTL g/dL 10:40 AM PEDIATRIC NEUROLOGIST Comment: ----ADDITIONAL INFORMATION---- Peritoneal fluid albumin is used to calc ulate the serum-ascites albumin gradient (SAAG). V alues greater than or equal to 1.1 g/dL suggest portal hypertension. Pleural fluid albumin may be used to ada culate a serum-effusion albumin gradient. Values greater than 1.2 g/dL are most consistent with a noriega sudative process. ?? All other fluids refer to [email or web address] for further interpretive information. This t est has been modified from the car shifter's instruc tions. Its performance characteristics were determi foreign by [facility] in a manner consistent with CLIA require ments. This test has not been cleared or approved by the U.S. Food and Drug Administration. Fluid Type, Albumin PERITONEAL 03/14/2021 10:06 AM PEDIATRIC NEUROLOGIST DTL Specimen Anatomical Collection Method Collection Time Receive d Time (Source) Location / / Volume Laterality Fluid 03/12/2021 3:46 PM 9:49 (Peritoneal PEDIATRIC NEUROLOGIST AM PEDIATRIC NEUROLOGIST Fluid) Sera Morgan P.A.-C. LAB BODY FLUIDS AND STOOLS O RDERABLES Performing Organization Address City/[facility]/ZIP Code Phon e Number [facility] LABORATORIES - [address] [place], [place] [address] [facility] [place] [address] Laboratories-[facility] [address] [id number] (03/12/2021 2:57 PM PEDIATRIC NEUROLOGIST) athologist Signature Feusi-8-Lsrovdr 170 100 - 190 03/14/2021 [facility] psin, S mg/dL 10:09 AM PEDIATRIC NEUROLOGIST Specimen Anatomical Collection Method Collection Time Receive d Time (Source) Location / / Volume Laterality Blood (Blood, 03/12/2021 2:57 PM 03/14/20 7:05 Venous) PEDIATRIC NEUROLOGIST AM PEDIATRIC NEUROLOGIST Sera Morgan P.A.-C. LAB BLOOD ADD-ON Performing Organization Address City/[facility] Code Phon e Number [facility] [address] [place], [place] [address] [facility] [place] [address] Laboratory Medicine and Pathology [address] [place] (ABNORMAL) Ceruloplasmin (03/12/2021 2:57 PM PEDIATRIC NEUROLOGIST) athologist Signature Ceruloplasmin, 16.5 (L) 20.0 - 03/13/2021 DTL S 51.0 mg/dL 10:48 AM PEDIATRIC NEUROLOGIST Comment: A low concentration of ceruloplasmin in [...] at or the on-line test catalog at [facility] for m ore information. Specimen Anatomical Collection Method Collection Time Receive d Time (Source) Location / / Volume Laterality Blood 03/12/2021 2:57 PM 1 8:43 PEDIATRIC NEUROLOGIST AM PEDIATRIC NEUROLOGIST Barrera Vargas M.D. LAB BLOOD ADD-ON Performing Organization Address City/[facility]/ZIP [facility] Phon e Number [facility] LABORATORIES - [address] [place], [place] [address] [place] [address] Laboratories-[facility] 200 [facility] Autoimmune Liver Disease Panel (03/12/2021 2:57 PM PEDIATRIC NEUROLOGIST) Analysis Performed At Patho logist Time Signature Mitochondrial Ab, <0.1 <0.1 03/13/2021 [facility] M2, S (Negative) 2:19 PM PEDIATRIC NEUROLOGIST U Antinuclear Ab, S 0.2 <=1.0 03/13/2021 [facility] (Negative) 12:55 PM PEDIATRIC NEUROLOGIST U Comment: ----ADDITIONAL INFORMATION---- Method: Enzyme-linked immunoassay using HEp-2 nuclear extract supplemented with purified antig ens. Smooth Muscle Ab Screen, S Negative Negative 03/13/2021 12 :11 PM PEDIATRIC NEUROLOGIST [facility] Comment: Negative: No further testing will be [...] Laterality Blood 03/12/2021 2:57 PM 1 7:28 PEDIATRIC NEUROLOGIST AM PEDIATRIC NEUROLOGIST Barrera Vargas M.D. LAB BLOOD ADD-ON Performing Organization Address City/[facility]/ZIP Code Phon e Number [facility] [address] [place], [place] [address] [facility] [place] [address] Laboratory Medicine and Pathology [address] [place] (ABNORMAL) Glucose, POCT (03/12/2021 2:06 PM PEDIATRIC NEUROLOGIST) P athologist Signature Glucose, POCT, 155 (H) 70 - 140 03/12/2021 MKTO B mg/dL 2:06 PM PEDIATRIC NEUROLOGIST Specimen Anatomical Collection Method Collection Time Receive d Time (Source) Location / / Volume Laterality Blood 03/12/2021 2:06 PM 2:39 PEDIATRIC NEUROLOGIST PM PEDIATRIC NEUROLOGIST Generic Rals LAB POCT ORDERABLES-MANUAL Performing Organization Address City/State/ZIP Code Phon e Number [facility]- [facility] [place] [address] [place] [address] System in [place] [address] [facility] CT Abdomen Pelvis with IV Contrast (03/12/2021 1:50 PM PEDIATRIC NEUROLOGIST) Anatomical Region Laterality Modality Abdomen, Pelvis, Abdominal RST LOS, Abdominal ARZ LOS, N/A Computed Tomography Abdominal FLA LOS Specimen (Source) Anatomical Collection Method Collection Time Re ceived Time Location / / Volume Laterality 03/12/2021 2:04 PM PEDIATRIC NEUROLOGIST Impressions 03/12/2021 2:37 PM PEDIATRIC NEUROLOGIST 1. ??Partial atelectasis of the bilatera l [...] anterior fifth rib. Narrative 03/12/2021 2:37 PM PEDIATRIC NEUROLOGIST EXAM: CT CHEST WITH IV CONTRAST, CT [...] Chest with IV Contrast (03/12/2021 1:50 PM PEDIATRIC NEUROLOGIST) Anatomical Region Laterality Modality Chest, Thoracic RST LOS, Thoracic ARZ LOS, Thoracic N/A Computed Tomography ARZ LOS, Thoracic FLA LOS Specimen (Source) Anatomical Collection Method Collection Time Re ceived Time Location / / Volume Laterality 03/12/2021 2:04 PM PEDIATRIC NEUROLOGIST Impressions 03/12/2021 2:37 PM PEDIATRIC NEUROLOGIST 1. ??Partial atelectasis of the bilatera l [...] anterior fifth rib. Narrative 03/12/2021 2:37 PM PEDIATRIC NEUROLOGIST EXAM: CT CHEST WITH IV CONTRAST, CT [...] Head without IV Contrast (03/12/2021 1:49 PM PEDIATRIC NEUROLOGIST) Anatomical Region Laterality Modality Head, Neuroradiology RST LOS, Neuroradiology ARZ [facility] N/A Computed Tomography Neuroradiology FLA [facility] Specimen (Source) Anatomical Collection Method Collection Time Re ceived Time Location / / Volume Laterality 03/12/2021 1:50 PM PEDIATRIC NEUROLOGIST Impressions 03/12/2021 1:52 PM PEDIATRIC NEUROLOGIST No acute CT abnormalities are demonstrated. Narrative 03/12/2021 1:52 PM PEDIATRIC NEUROLOGIST EXAM: CT HEAD WITHOUT IV CONTRAST COMPARISON: [...] Barrera Vargas M.D. IMG CT PROCEDURES Cytology Non-FAC ENGINEER (03/12/2021 1:11 PM PEDIATRIC NEUROLOGIST) Component Value Ref Test Analysis Performed At Patholo gist Range Method Time Signature /14/2021 HK 12:37 PM PEDIATRIC NEUROLOGIST Report Lloyd Alfaro MD 03/14/2021 HK electronically 12:37 PM signed by PEDIATRIC NEUROLOGIST I verify that I have examined all relevant slides/materials for the specimen(s) and rendered or confirmed the diagnosis. Gross Description 800 ml cloudy brownish red fluid received. ??60 m l fixed 03/14/2021 HK with 70% ETOH 03-12-21 @ 15:30 12:37 PM 2 slides and cell block prepared. PEDIATRIC NEUROLOGIST Source A. Pleural, 03/14/2021 HKCY Right, fluid 12:37 PM PEDIATRIC NEUROLOGIST Interpretation A. Pleural, Right, fluid (smears/cell block): Negati ve for 03/14/2021 HK malignancy. 12:37 PM PEDIATRIC NEUROLOGIST Specimen Anatomical Collection Method Collection Time Receive d Time (Source) Location / / Volume Laterality Varies 03/12/2021 1:11 PM 6:20 PEDIATRIC NEUROLOGIST AM PEDIATRIC NEUROLOGIST Narrative This result has an attachment that is no t available. Barrera Vargas M.D. LAB SURG PATH ORDERABLES Performing Organization Address City/State/ZIP Code Phon e Number [facility]- [facility] [place] [address] [place] [address] System [place] [facility] [address] [facility] ECG 12 Lead (03/12/2021 1:01 PM PEDIATRIC NEUROLOGIST) P athologist Signature Ventricular Rate 84 BPM MUSE ECG/Min ND Interval 166 ms MUSE QRSD Interval 92 ms MUSE QT Interval 436 ms MUSE QTC Interval 516 ms MUSE P [place] 62 degrees MUSE R [place] 43 degrees MUSE T Wave [place] -20 degrees MUSE Specimen Anatomical Collection Method Collection Time Receive d Time (Source) Location / / Volume Laterality 03/12/2021 1:01 PM 1:24 PEDIATRIC NEUROLOGIST PM PEDIATRIC NEUROLOGIST Impressions MUSE - 03/12/2021 1:21 PM PEDIATRIC NEUROLOGIST Normal sinus rhythm ST and T wave [...] available Reviewed by STERLING Prasad Nunu Sanches P.A.-C. M.S. ECG ORDERABLES Performing Organization Address City/State/ZIP Code Phon e Number MUSE MUSE NA DX Chest Portable 1 View (03/12/2021 1:00 PM PEDIATRIC NEUROLOGIST) Anatomical Region Laterality Modality Chest, Thoracic RST LOS, Thoracic ARZ LOS, Thoracic N/A Digital Radiography FLA LOS Specimen (Source) Anatomical Collection Method Collection Time Re ceived Time Location / / Volume Laterality 03/12/2021 1:12 PM PEDIATRIC NEUROLOGIST Impressions 03/12/2021 1:14 PM PEDIATRIC NEUROLOGIST 1. New endotracheal tube with tip positioned [...] acute airspace disease. Narrative 03/12/2021 1:14 PM PEDIATRIC NEUROLOGIST EXAM: DX CHEST PORTABLE 1 VIEW COMPARISON: [...] P ROCEDURES Testing Location (03/12/2021 12:59 PM PEDIATRIC NEUROLOGIST) athologist Signature Testing [facility] DEFAULT 03/12/2021 MKTO Location 1:05 PM PEDIATRIC NEUROLOGIST Specimen Anatomical Collection Method Collection Time Receive d Time (Source) Location / / Volume Laterality Blood 03/12/2021 12:59 03/12/2021 1:05 PM PEDIATRIC NEUROLOGIST PM PEDIATRIC NEUROLOGIST Barrera Vargas M.D. LAB BLOOD BANK TEST YO [facility] Organization Address City/State/ZIP Code Phon e Number [facility]- [address] [place] [phone] [place] [address] (ABNORMAL) Bilirubin, Direct (03/12/2021 12:59 PM PEDIATRIC NEUROLOGIST) athologist Signature Bilirubin, 2.7 (H) 0.0 - 0.3 03/12/2021 [facility] Direct, P mg/dL 1:40 PM PEDIATRIC NEUROLOGIST Specimen Anatomical Collection Method Collection Time Receive d Time (Source) Location / / Volume Laterality Blood (Blood, 03/12/2021 12:59 03/12/2021 1:08 Venous) PM PEDIATRIC NEUROLOGIST PM PEDIATRIC NEUROLOGIST Sera Morgan P.A.-C. LAB BLOOD ADD-ON Performing Organization Address City/[facility]/ZIP Code Phon e Number [facility]- [address] [place] [phone] [place] [address] [address] in [address] Patient Status (03/12/2021 12:59 PM PEDIATRIC NEUROLOGIST) P athologist Signature FIO2 0.50 0.21=AIR 03/12/2021 1:09 MKTO PM PEDIATRIC NEUROLOGIST Specimen Anatomical Collection Method Collection Time Receive d Time (Source) Location / / Volume Laterality Blood 03/12/2021 12:59 03/12/2021 1:04 PM PEDIATRIC NEUROLOGIST PM PEDIATRIC NEUROLOGIST Barrera Vargas M.D. LAB BLOOD NON ADD-ON Performing Organization Address City/[facility]/ZIP Code Phon e Number [facility]- [address] [place] [phone] [place] [address] System in [address] Lactate, B (03/12/2021 12:59 PM PEDIATRIC NEUROLOGIST) P athologist Signature Lactate, B 2.2 0.5 - 2.2 03/12/2021 MKTO mmol/L 1:09 PM PEDIATRIC NEUROLOGIST Specimen Anatomical Collection Method Collection Time Receive d Time (Source) Location / / Volume Laterality Blood 03/12/2021 12:59 03/12/2021 1:05 PM PEDIATRIC NEUROLOGIST PM PEDIATRIC NEUROLOGIST Barrera Vargas M.D. LAB BLOOD NON ADD-ON Performing Organization Address City/State/ZIP Code Phon e Number [facility]- [address] [place] [phone] [place] [address] System in [address] (ABNORMAL) Blood Gas with Coox, Arterial (03/12/2021 12:59 PM PEDIATRIC NEUROLOGIST) P athologist Signature P O2 102 83 - 108 03/12/2021 MK[facility] mm Hg 1:09 PM PEDIATRIC NEUROLOGIST P CO2 31 (L) 32 - 45 mm 03/12/2021 [facility] Hg 1:09 PM PEDIATRIC NEUROLOGIST pH 7.47 (H) 7.35 - 03/12/2021 MKTO 7.45 pH 1:09 PM PEDIATRIC NEUROLOGIST Base Excess -1 -2 - 3 03/12/2021 MK[facility] mmol/L 1:09 PM PEDIATRIC NEUROLOGIST HCO3 23 22 - 26 03/12/2021 [facility] mmol/L 1:09 PM PEDIATRIC NEUROLOGIST Hemoglobin, B 6.5 (L) 11.6 - 03/12/2021 MK[facility] 15.0 g/dL 1:09 PM PEDIATRIC NEUROLOGIST O2Hb 96.9 94.0 - 03/12/2021 MK[facility] 98.0 % 1:09 PM PEDIATRIC NEUROLOGIST COHb 1.8 <3.0 % 03/12/2021 MKTO 1:09 PM PEDIATRIC NEUROLOGIST MetHb 0.0 <1.5 % 03/12/2021 [facility] 1:09 PM PEDIATRIC NEUROLOGIST CtO2 9.1 (L) 18.0 - 03/12/2021 MKTO 21.0 vol % 1:09 PM PEDIATRIC NEUROLOGIST Arterial Art Line 03/12/2021 MK[facility] Sample Site 1:09 PM PEDIATRIC NEUROLOGIST Comment: Michael's test not done. Specimen Anatomical Collection Method Collection Time Receive d Time (Source) Location / / Volume Laterality Blood (Blood, 03/12/2021 12:59 03/12/2021 1:04 Arterial) PM PEDIATRIC NEUROLOGIST PM PEDIATRIC NEUROLOGIST Barrera Vargas M.D. LAB BLOOD NON ADD-ON Performing Organization Address City/State/ZIP Code Phon e Number [facility]- [address] [place] [phone] [place] [address] [place] [address] Type and Screen (with reflex Antibody ID) (03/12/2021 12:59 PM PEDIATRIC NEUROLOGIST) [employer] gist Method Time Signature ABO Group B 03/12/2021 MKTO 1:45 PM PEDIATRIC NEUROLOGIST Rh Type POS 03/12/2021 MKTO 1:45 PM PEDIATRIC NEUROLOGIST Antibody Screen NEG 03/12/2021 MKTO 1:45 PM PEDIATRIC NEUROLOGIST Type & Screen 03/15/2021 03/12/2021 MKTO Expiration 23:59 1:45 PM PEDIATRIC NEUROLOGIST ELXM Eligible Y 03/12/2021 MKTO 1:45 PM PEDIATRIC NEUROLOGIST Specimen Anatomical Collection Method Collection Time Receive d Time (Source) Location / / Volume Laterality Blood (Blood, 03/12/2021 12:59 03/12/2021 1:05 Venous) PM PEDIATRIC NEUROLOGIST PM PEDIATRIC NEUROLOGIST Barrera Vargas M.D. LAB BLOOD BANK TEST ORDE GOSIA Performing Organization Address City/[facility]/ZIP [facility] [place] Number [facility]- [address] [place] [address] [place] [address] [address] LD (Lactate Dehydrogenase) (03/12/2021 12:59 PM PEDIATRIC NEUROLOGIST) Analysis Performed At Patho logist Time Signature Lactate 218 122 - 222 03/12/2021 MKTO Dehydrogenase U/L 1:39 PM PEDIATRIC NEUROLOGIST (LD), P Specimen Anatomical Collection Method Collection Time Receive d Time (Source) Location / / Volume Laterality Blood (Blood, 03/12/2021 12:59 03/12/2021 1:26 Venous) PM PEDIATRIC NEUROLOGIST PM PEDIATRIC NEUROLOGIST Barrera Vargas M.D. LAB BLOOD NON ADD-ON Performing Organization Address City/[facility] Phon e Number [facility]- [address] [place] [address] [place] [address] System in [address] Cytology Non-FAC ENGINEER (03/12/2021 12:39 PM PEDIATRIC NEUROLOGIST) Component Value Ref Test Analysis Performed At Patholo gist Range Method Time Signature 03/14/2021 HKCY 12:36 PM PEDIATRIC NEUROLOGIST Report Lloyd Alfaro MD 03/14/2021 HKCY electronically 12:36 PM signed by PEDIATRIC NEUROLOGIST I verify that I have examined all relevant slides/materials for the specimen(s) and rendered or confirmed the diagnosis. Gross Description 925 ml of cloudy hinson yellow fluid received. ?? Specimen 03/14/2021 HKCY fixed @ 2:00 pm on 03-12-2021. 12:36 PM 2 slides and cell block prepared. PEDIATRIC NEUROLOGIST Collection Paracentesis 03/14/2021 HKCY Procedure 12:36 PM PEDIATRIC NEUROLOGIST Source A. Peritoneal, 03/14/2021 HKCY fluid 12:36 PM PEDIATRIC NEUROLOGIST Interpretation A. Peritoneal, fluid (smears/cell block): Negative f or 03/14/2021 [facility] malignancy. 12:36 PM PEDIATRIC NEUROLOGIST Specimen Anatomical Collection Method Collection Time Receive d Time (Source) Location / / Volume Laterality Varies 03/12/2021 12:39 03/12/2021 2:00 PM PEDIATRIC NEUROLOGIST PM PEDIATRIC NEUROLOGIST Narrative This result has an attachment that is no t available. Barrera Vargas M.D. LAB SURG PATH ORDERABLES Performing Organization Address City/[facility]/ZIP Code Phon e Number [facility]- [address] [place] [address] [place] [address] System [place] [facility] [address] [facility] Lactate Dehydrogenase (LD), Body Fluid (03/12/2021 12:35 PM PEDIATRIC NEUROLOGIST) [facility] Method Time Signature Lactate 84 See Comment 03/13/2021 DTL Dehydrogenase U/L 11:50 AM PEDIATRIC NEUROLOGIST (LD), BF Comment: ----ADDITIONAL INFORMATION---- Pleural fluid [...] clinical findings. All other fluids refer to [email or web address] for further interpretive information. This test has been modified from the marcus ufacturer's instructions. Its performance characteristics were det ermined by [facility] in a manner consistent with CLIA requirements . This test has not been cleared or approved by the U.S. Food and Drug Administration. Fluid Type, Lactate Pleural Fluid, Right 1 10:15 AM PEDIATRIC NEUROLOGIST DTL Dehydrogenase Specimen Anatomical Collection Method Collection Time Receive d Time (Source) Location / / Volume Laterality Fluid (Pleural 03/12/2021 12:35 1 8:56 Fluid, Right) PM PEDIATRIC NEUROLOGIST AM PEDIATRIC NEUROLOGIST Barrera Vargas M.D. LAB BODY FLUIDS AND STOO LS ORDERABLES Performing Organization Address City/[facility]/ZIP Code Phon e Number [facility] - [address] [place], [place] [address] [place] [address] [place] [address] [facility] 200 [facility] Protein, Total, Body Fluid (03/12/2021 12:35 PM PEDIATRIC NEUROLOGIST) P athologist Signature Protein, 1.5 See Comment 03/13/2021 DTL Total, BF g/dL 11:50 AM PEDIATRIC NEUROLOGIST Comment: ----ADDITIONAL INFORMATION---- A pleural fluid total [...] ical findings. All other fluids refer to [email or web address] for further inter pretive information. This test has been modified from the car shifter's instructions. Its perform ance characteristics were determined by [facility] in a manner consistent with CLIA require ments. This test has not been cleared or approv ed by the U.S. Food and Drug Administration. Fluid Type, Protein, Total Pleural Fluid, Right 10:15 AM PEDIATRIC NEUROLOGIST DTL Specimen Anatomical Collection Method Collection Time Receive d Time (Source) Location / / Volume Laterality Fluid (Pleural 03/12/2021 12:35 8:56 Fluid, Right) PM PEDIATRIC NEUROLOGIST AM PEDIATRIC NEUROLOGIST Barrera Vargas M.D. LAB BODY FLUIDS AND STOO LS ORDERABLES Performing Organization Address City/State/ZIP Code Phon e Number [facility] - [address] [place], [place] [address] [place] [address] [facility] 200 [facility] Glucose, Body Fluid (03/12/2021 12:34 PM PEDIATRIC NEUROLOGIST) athologist Signature Glucose, BF 124 See Comment 03/13/2021 DTL mg/dL 11:44 AM PEDIATRIC NEUROLOGIST Comment: ----ADDITIONAL INFORMATION---- Body fluid glucose concentrations [...] of infection. All other fluids refer to [email or web address] for further inter pretive information. This test has been modified from the man ufacturer's instructions. Its performance characteri stics were determined by [facility] in a manner co nsistent with CLIA requirements. This test has not been norah ared or approved by the U.S. Food and Drug Administration. Fluid Type, Glucose Pleural Fluid, Right 1 10:14 AM PEDIATRIC NEUROLOGIST DTL Specimen Anatomical Collection Method Collection Time Receive d Time (Source) Location / / Volume Laterality Fluid (Pleural 03/12/2021 12:34 1 8:55 Fluid, Right) PM PEDIATRIC NEUROLOGIST AM PEDIATRIC NEUROLOGIST Barrera Vargas M.D. LAB BODY FLUIDS AND STOO LS ORDERABLES Performing Organization Address City/[facility]/ZIP Code Phon e Number [facility] - [address] [place], [place] [address] [place] [address] [facility] 200 [facility] Gram Stain (03/12/2021 12:34 PM PEDIATRIC NEUROLOGIST) [facility] Method Time Signature Gram Stain No organisms seen. 03/12/2021 MKTO White blood cells present. 4:46 PM PEDIATRIC NEUROLOGIST Stain performed on concentrated cytospin preparation. Specimen Anatomical Collection Method Collection Time Receive d Time (Source) Location / / Volume Laterality Fluid (Pleural 03/12/2021 12:34 1 1:08 Fluid, Right) PM PEDIATRIC NEUROLOGIST PM PEDIATRIC NEUROLOGIST Comment: Specimen Source Site: Fluid Barrera Vargas M.D. LAB MICROBIOLOGY - GENER AL ORDERABLES Performing Organization Address City/[facility]/ZIP Code Phon e Number [facility]- [address] [place] [address] [place] [address] System [place] [address] Cell Count and Differential, Body Fluid (03/12/2021 12:34 PM PEDIATRIC NEUROLOGIST) [facility] Method Time Signature Fluid Type Pleural/Thor 03/12/2021 MKTO acentesis 2:12 PM PEDIATRIC NEUROLOGIST Gross Slightly 03/12/2021 MKTO Appearance Cloudy 2:13 PM PEDIATRIC NEUROLOGIST Total 350 /mcL 03/12/2021 MKTO Nucleated 2:13 PM PEDIATRIC NEUROLOGIST Cells Comment: ----REFERENCE VALUE---- Synovial: <150 Peritoneal: <500 Pleural: <500 Pericardial: <500 ----ADDITIONAL INFORMATION---- This test has been modified from the marcus ufacturer's instructions. Its performance characteri stics were determined by [facility] in a manner co nsistent with CLIA requirements. This test has not bee n cleared or approved by the U.S. Food and Drug Admin istration. Neutrophils 4 % 03/12/2021 2:47 PM PEDIATRIC NEUROLOGIST MKTO Comment: ----REFERENCE VALUE---- Synovial: <25% Peritoneal: <25% Pleural: <25% Pericardial: <25% Lymphocytes 13 Synovial: <75% % 03/12/2021 2:47 PM CS T MKTO Monocytes/Macrophages 76 Synovial: <70% % 03/12/2021 2:47 PM PEDIATRIC NEUROLOGIST MKTO Other Cells 7 % 03/12/2021 2:47 PM PEDIATRIC NEUROLOGIST MKTO Comment: ----REFERENCE VALUE---- The reference range and other method per formance specifications have not been established for this body fluid. The test result must be integrate d into the clinical context for interpretation. Other Cells Are: Mesothelial cells 03/12/2021 2:47 PM PEDIATRIC NEUROLOGIST MKTO Reviewed by: Dr. Joshua Castrejon 03/12/2021 2:47 PM CS T MKTO Specimen Anatomical Collection Method Collection Time Receive d Time (Source) Location / / Volume Laterality Fluid (Pleural 03/12/2021 12:34 1:08 Fluid, Right) PM PEDIATRIC NEUROLOGIST PM PEDIATRIC NEUROLOGIST Barrera Vargas M.D. LAB BODY FLUIDS AND STOO LS ORDERABLES Performing Organization Address City/State/ZIP Code Phon e Number [facility]- [address] [place] [address] [place] [address] System in [address] Bacterial Culture, Anaerobic + Susc (03/12/2021 12:34 PM PEDIATRIC NEUROLOGIST) [facility] Method Time Signature Bacterial No growth 03/19/2021 MKTO Culture, after 7 8:26 AM PEDIATRIC NEUROLOGIST Anaerobic days of incubation. Specimen Anatomical Collection Method Collection Time Receive d Time (Source) Location / / Volume Laterality Fluid (Pleural 03/12/2021 12:34 1 1:08 Fluid, Right) PM PEDIATRIC NEUROLOGIST PM PEDIATRIC NEUROLOGIST Comment: Specimen Source Site: Fluid Barrera Vargas M.D. LAB MICROBIOLOGY - GENER AL ORDERABLES Performing Organization Address City/[facility] Phon e Number [address] [address] [place] [address] Bacterial Culture, Aerobic + Susc (03/12/2021 12:34 PM PEDIATRIC NEUROLOGIST) [facility] Method Time Signature Bacterial No growth 03/17/2021 MKTO Culture, after 5 7:38 AM PEDIATRIC NEUROLOGIST Aerobic + Susc days of incubation. Specimen Anatomical Collection Method Collection Time Receive d Time (Source) Location / / Volume Laterality Fluid (Pleural 03/12/2021 12:34 1 1:08 Fluid, Right) PM PEDIATRIC NEUROLOGIST PM PEDIATRIC NEUROLOGIST Comment: Specimen Source Site: Fluid Barrera Vargas M.D. LAB MICROBIOLOGY - GENER AL ORDERABLES Performing Organization Address City/[facility] Phon e Number [facility]- [address] [place] [address] [place] [address] Influenza A/B and RSV, PCR, Varies (03/12/2021 11:00 AM PEDIATRIC NEUROLOGIST) [facility] Method Time Signature Influenza A/B Swab, 03/13/2021 DTL and RSV, Nasopharynx 11:55 AM Source PEDIATRIC NEUROLOGIST Influenza A, Undetected Undetected 03/13/2021 DTL PCR 11:55 AM PEDIATRIC NEUROLOGIST Comment: Influenza A RNA absent. Influenza B, PCR Undetected Undetected 03/13/2021 11:[address] DTL Comment: Influenza B RNA absent. Respiratory Syncytial Virus, Undetected Undetected 11:55 AM PEDIATRIC NEUROLOGIST DTL PCR Comment: RSV RNA absent. ----ADDITIONAL INFORMATION---- This test has been modified from the man ufacturer's instructions. Its performance characteristics were determi foreign by [facility] in a manner consistent with CLIA requirements. This test has not been cleared or approved by the U.S. Food and Drug Administration . Specimen Anatomical Collection Method Collection Time Receive d Time (Source) Location / / Volume Laterality Varies 03/12/2021 11:00 03/13/2021 7:12 (Nasopharynx) AM PEDIATRIC NEUROLOGIST AM PEDIATRIC NEUROLOGIST Nunu Sanches P.A.-C. M.S. LAB MICROBIOLOGY - [facility] ORDERABLES Performing Organization Address City/State/ZIP Code Phon e Number [facility] - [address] [place] [address] [facility] [place] [address] [facility] 200 [facility] SARS Coronavirus-2 RNA, V Symptomatic (03/12/2021 11:00 AM PEDIATRIC NEUROLOGIST) [facility] Method Time Signature SARS-CoV-2 Swab, 03/12/2021 MKTO Specimen Nasopharynx 7:30 PM PEDIATRIC NEUROLOGIST Source SARS CoV-2 Undetected Undetected 03/12/2021 MKTO RNA, TMA 7:30 PM PEDIATRIC NEUROLOGIST Comment: SARS-CoV-2 RNA absent. This result does not rule out COVID-19 in the patient, as the sensitivity of the test depends o n the timing of the specimen collection and the quality of the specim en. Result should be correlated with patient's history and clinical presentat ion. ----ADDITIONAL INFORMATION---- This molecular amplification test was pe rformed using the Aptima SARS-CoV-2 assay ([employer] on the [employer] tem under emergency use authorization (EUA) by the U.S. Food and Drug Administ ration. Fact sheets for this EUA assay can be fo und at the following links: For Healthcare Providers: https://www.fd a.gov/media/370413/download For Patients: https://www.fda.gov/media/ 592385/download Specimen Anatomical Collection Method Collection Time Receive d Time (Source) Location / / Volume Laterality Varies 03/12/2021 11:00 03/12/2021 (Nasopharynx) AM PEDIATRIC NEUROLOGIST 11:05 AM PEDIATRIC NEUROLOGIST Nunu Sanches P.A.-C. MSumaS. LAB MICROBIOLOGY - GENE RAL ORDERABLES Performing Organization Address City/State/ZIP Code Phon e Number [facility]- [facility] [place] [address] [place] [address] System in [place] [address] [facility] [place] ARTL CATH/CNULA MONITOR PERC, LDA ANE ARTERIAL LINE INSERTION (03/12/2021 10:45 AM PEDIATRIC NEUROLOGIST) Narrative Barrera To M.D. - 2020 10:45 AM PEDIATRIC NEUROLOGIST Barrera To M.D. ? 03/12/2021 ??6:09 PM Invasive Line Date/Time: 03/12/2021 10:45 AM Performed by: Barrera oT M.D. Authorized by: Barrera To M.D. Location: [...] SURGICAL ORDERABLES Patient Status (03/12/2021 7:10 AM PEDIATRIC NEUROLOGIST) athologist Signature FIO2 0.50 0.21=AIR 03/12/2021 7:37 MKTO AM PEDIATRIC NEUROLOGIST Specimen Anatomical Collection Method Collection Time Receive d Time (Source) Location / / Volume Laterality Blood 03/12/2021 7:10 AM 7:30 PEDIATRIC NEUROLOGIST AM PEDIATRIC NEUROLOGIST Nunu Sanches P.A.-C., M.S. LAB BLOOD NON ADD-ON Performing Organization Address City/State/[facility] Code Phon e Number [facility]- [address] [place] [phone] [place] [address] [place] [address] System [place] [address] (ABNORMAL) Blood Gas with Coox, Arterial (03/12/2021 7:10 AM PEDIATRIC NEUROLOGIST) P athologist Signature P O2 77 (L) 83 - 108 03/12/2021 MKTO mm Hg 7:37 AM PEDIATRIC NEUROLOGIST P CO2 20 (CL) 32 - 45 mm 03/12/2021 MKTO Hg 7:37 AM PEDIATRIC NEUROLOGIST pH 7.53 (H) 7.35 - 03/12/2021 MKTO 7.45 pH 7:37 AM PEDIATRIC NEUROLOGIST Base Excess -5 (L) -2 - 3 03/12/2021 MKTO mmol/L 7:37 AM PEDIATRIC NEUROLOGIST HCO3 17 (L) 22 - 26 03/12/2021 MKTO mmol/L 7:37 AM PEDIATRIC NEUROLOGIST Hemoglobin, B 7.6 (L) 11.6 - 03/12/2021 MKTO 15.0 g/dL 7:37 AM PEDIATRIC NEUROLOGIST O2Hb 95.2 94.0 - 03/12/2021 MKTO 98.0 % 7:37 AM PEDIATRIC NEUROLOGIST COHb 1.6 <3.0 % 03/12/2021 MKTO 7:37 AM PEDIATRIC NEUROLOGIST MetHb 0.0 <1.5 % 03/12/2021 MKTO 7:37 AM PEDIATRIC NEUROLOGIST CtO2 10.3 (L) 18.0 - 03/12/2021 MKTO 21.0 vol % 7:37 AM PEDIATRIC NEUROLOGIST Arterial R-Radial 03/12/2021 MKTO Sample Site 7:37 AM PEDIATRIC NEUROLOGIST Specimen Anatomical Collection Method Collection Time Receive d Time (Source) Location / / Volume Laterality Blood (Blood, 03/12/2021 7:10 AM 03/12/20 7:30 Arterial) PEDIATRIC NEUROLOGIST AM PEDIATRIC NEUROLOGIST Nunu Sanches P.A.-C., M.S. LAB BLOOD NON ADD-ON Performing Organization Address [facility] Phon e Number [phone] [place] [address] [place] [address] (ABNORMAL) Lactate, B (03/12/2021 7:10 AM PEDIATRIC NEUROLOGIST) P athologist Signature Lactate, B 9.3 (H) 0.5 - 2.2 03/12/2021 MKTO mmol/L 7:38 AM PEDIATRIC NEUROLOGIST Specimen Anatomical Collection Method Collection Time Receive d Time (Source) Location / / Volume Laterality Blood 03/12/2021 7:10 AM 7:30 PEDIATRIC NEUROLOGIST AM PEDIATRIC NEUROLOGIST Nunu Sanches P.A.-C., M.S. LAB BLOOD NON ADD-ON Performing Organization Address City/[facility] Phon e Number [address] [address] [place] [address] Bacteria / Raudel Culture, Blood #2 (03/12/2021 7:10 AM PEDIATRIC NEUROLOGIST) Patholo gist Method Time Signature Bacteria/Adriana No growth 03/17/2021 MKTO da Culture, after 5 8:05 AM PEDIATRIC NEUROLOGIST Blood day/s of incubation. Specimen (Source) Anatomical Collection Method Collection Time Re ceived Time Location / / Volume Laterality Blood (Blood, 03/12/2021 7:10 03/12/2021 7:31 Peripheral Draw) AM PEDIATRIC NEUROLOGIST AM PEDIATRIC NEUROLOGIST Comment: Specimen Source Site: Blood Nunu Sanches P.A.-C., M.S. LAB MICROBIOLOGY - GENE [facility] ORDERABLES Performing Organization Address City/State/ZIP Code Phon e Number [facility]- [address] [place] [address] [place] [address] System in [place] [address] [facility] DX Chest Portable 1 View (03/12/2021 6:24 AM PEDIATRIC NEUROLOGIST) Anatomical Region Laterality Modality Chest, Thoracic RST LOS, Thoracic ARZ LOS, Thoracic N/A Digital Radiography FLA LOS Specimen (Source) Anatomical Collection Method Collection Time Re ceived Time Location / / Volume Laterality 03/12/2021 7:25 AM PEDIATRIC NEUROLOGIST Impressions 03/12/2021 7:27 AM PEDIATRIC NEUROLOGIST Large right pleural effusion and right-sided consolidation. Centrally obstructing process within bro nchus is not excluded. Narrative 03/12/2021 7:27 AM PEDIATRIC NEUROLOGIST EXAM: DX CHEST PORTABLE 1 VIEW COMPARISON: [...] PROCEDURES (ABNORMAL) Microscopic Automated (03/12/2021 6:23 AM PEDIATRIC NEUROLOGIST) P athologist Signature White Blood Occ-3 /hpf 03/12/2021 MKTO Cells 7:18 AM PEDIATRIC NEUROLOGIST Comment: ----REFERENCE VALUE---- Males: 0-3 Females: 0-10 Unknown: 0-10 Red Blood Cells 3-10 (A) 0 - 2 /hpf 03/12/2021 7:18 AM PEDIATRIC NEUROLOGIST MKTO Dysmorphic Red Blood Cells <=25 <=25 % 03/12/2021 7: 18 AM PEDIATRIC NEUROLOGIST MKTO Hyaline Casts 4-10 /lpf 03/12/2021 7:18 AM PEDIATRIC NEUROLOGIST MKT O Squamous Cells Occ-3 /hpf 03/12/2021 7:18 AM PEDIATRIC NEUROLOGIST MK TO Specimen Anatomical Collection Method Collection Time Receive d Time (Source) Location / / Volume Laterality Urine 03/12/2021 6:23 AM 6:47 PEDIATRIC NEUROLOGIST AM PEDIATRIC NEUROLOGIST Nunu Sanches P.A.-C., M.S. LAB URINE ORDERABLES Performing Organization Address [facility] Phon e Number [address] [address] [place] [address] MRSA PCR, Nasal (03/12/2021 6:23 AM PEDIATRIC NEUROLOGIST) athologist Signature MRSA Screen, Negative Negative 03/12/2021 MKTO Nasal by PCR 10:50 AM PEDIATRIC NEUROLOGIST Specimen Anatomical Collection Method Collection Time Receive d Time (Source) Location / / Volume Laterality Swab (Nares) 03/12/2021 6:23 AM 6:47 PEDIATRIC NEUROLOGIST AM PEDIATRIC NEUROLOGIST Nunu Sanches P.A.-C., M.S. LAB MICROBIOLOGY - GENE RAL ORDERABLES Performing Organization Address [facility] Phon e Number [address] [address] [place] [address] (ABNORMAL) Urinalysis with Microscopic if Indicated (03/12/2021 6:23 AM PEDIATRIC NEUROLOGIST) athologist Signature Source Urine, 03/12/2021 MKTO Urine, 6:56 AM PEDIATRIC NEUROLOGIST Clean Catch Clarity Clear Clear 03/12/2021 MKTO 6:56 AM PEDIATRIC NEUROLOGIST Color Priscilla 03/12/2021 MKTO 6:56 AM PEDIATRIC NEUROLOGIST Comment: ----REFERENCE VALUE---- Colorless Yellow Priscilla Blood Negative Negative 03/12/2021 6:56 AM PEDIATRIC NEUROLOGIST MKTO Nitrite Negative Negative 03/12/2021 6:56 AM PEDIATRIC NEUROLOGIST MKTO Leukocyte Esterase Small (A) Negative 03/12/2021 6:56 AM CS T MKTO Protein Trace mg/dL 03/12/2021 6:56 AM PEDIATRIC NEUROLOGIST MKTO Comment: ----REFERENCE VALUE---- Negative Trace Glucose Negative Negative mg/dL 03/12/2021 6:56 AM PEDIATRIC NEUROLOGIST MK TO Ketone Trace (A) Negative mg/dL 03/12/2021 6:56 AM PEDIATRIC NEUROLOGIST MK TO Bilirubin Moderate (A) Negative 03/12/2021 6:56 AM PEDIATRIC NEUROLOGIST MKTO pH 6.0 5.0 - 8.0 03/12/2021 6:56 AM PEDIATRIC NEUROLOGIST MKTO Specific Holcomb 1.016 1.001 - 1.035 03/12/2021 6:56 AM PEDIATRIC NEUROLOGIST MKTO Urobilinogen 1.0 0.2 - 1.0 mg/dL 03/12/2021 6:56 AM CS T MKTO Specimen Anatomical Collection Method Collection Time Receive d Time (Source) Location / / Volume Laterality Urine (Urine, 03/12/2021 6:23 AM 03/12/20 6:47 Clean Catch) PEDIATRIC NEUROLOGIST AM PEDIATRIC NEUROLOGIST Nunu Sanches P.A.-C., M.S. LAB URINE ORDERABLES Performing Organization Address City/State/ZIP Code Phon e Number [facility]- [address] [place] [phone] [place] [address] [place] [address] [address] (ABNORMAL) Drug Screen Urine (03/12/2021 6:23 AM PEDIATRIC NEUROLOGIST) P athologist Signature Amphetamines, Negative Negative 03/12/2021 MKTO U 7:18 AM PEDIATRIC NEUROLOGIST Comment: ----ADDITIONAL INFORMATION---- Hardware Engineer's Cutoff: 500 ng/mL Barbiturates, U Negative Negative 03/12/2021 7:18 AM PEDIATRIC NEUROLOGIST Elizabeth LESTERO Comment: ----ADDITIONAL INFORMATION---- Hardware Engineer's Cutoff: 200 ng/mL Benzodiazepines, U Negative Negative 03/12/2021 7:18 AM CS T MKTO Comment: ----ADDITIONAL INFORMATION---- Hardware Engineer's Cutoff: 150 ng/mL Buprenorphine, U Negative Negative 03/12/2021 7:18 AM PEDIATRIC NEUROLOGIST MKTO Comment: ----ADDITIONAL INFORMATION---- Hardware Engineer's Cutoff: 10 ng/mL Cocaine, U Negative Negative 03/12/2021 7:18 AM PEDIATRIC NEUROLOGIST MKTO Comment: ----ADDITIONAL INFORMATION---- Hardware Engineer's Cutoff: 150 ng/mL Methadone, U Negative Negative 03/12/2021 7:18 AM PEDIATRIC NEUROLOGIST MKTO Comment: ----ADDITIONAL INFORMATION---- Hardware Engineer's Cutoff: 200 ng/mL Methamphetamines, U Negative Negative 03/12/2021 7:[address] MKTO Comment: ----ADDITIONAL INFORMATION---- Hardware Engineer's Cutoff: 500 ng/mL Opiates, U Negative Negative 03/12/2021 7:18 AM PEDIATRIC NEUROLOGIST MKTO Comment: ----ADDITIONAL INFORMATION---- Hardware Engineer's Cutoff: 100 ng/mL Oxycodone, U Unconfirmed Positive (A) Negative 03/12/2021 7 :18 AM PEDIATRIC NEUROLOGIST MKTO Comment: ----ADDITIONAL INFORMATION---- Hardware Engineer's Cutoff: 100 ng/mL Phencyclidine, U Negative Negative 03/12/2021 7:18 AM PEDIATRIC NEUROLOGIST MKTO Comment: ----ADDITIONAL INFORMATION---- Hardware Engineer's Cutoff: 25 ng/mL Propoxyphene, U Negative Negative 03/12/2021 7:18 AM PEDIATRIC NEUROLOGIST Elizabeth AGUILAR Comment: ----ADDITIONAL INFORMATION---- Hardware Engineer's Cutoff: 300 ng/mL Tetrahydrocannabinol, U Unconfirmed Positive Negative 03/12 7:18 AM MKTO (A) PEDIATRIC NEUROLOGIST Comment: ----ADDITIONAL INFORMATION---- Hardware Engineer's Cutoff: 50 ng/mL Tricyclic Antidepressants, U Negative Negative 03/12/2021 7:18 AM PEDIATRIC NEUROLOGIST MKTO Comment: ----ADDITIONAL INFORMATION---- Hardware Engineer's Cutoff: 300 ng/mL THE ABOVE DRUG SCREEN PANEL IS FOR MED ICA PURPOSES ONLY Specimen Anatomical Collection Method Collection Time Receive d Time (Source) Location / / Volume Laterality Urine (Urine, 03/12/2021 6:23 AM 03/12/20 6:47 Clean Catch) PEDIATRIC NEUROLOGIST AM PEDIATRIC NEUROLOGIST Nunu Sanches P.A.-C. M.S. LAB URINE ORDERABLES Performing Organization Address City/State/ZIP Code Phon e Number [facility]- [address] [place] [address] [place] [address] System in [place] [address] [facility] HCV Ab w/Reflex to HCV PCR, Serum (03/12/2021 5:58 AM PEDIATRIC NEUROLOGIST) athologist [facility] HCV Ab, S Negative Negative 03/13/2021 [facility] 9:25 AM PEDIATRIC NEUROLOGIST Comment: Irtiss-df-vhdfxx ratio is <1.00 . Specimen (Source) Anatomical Collection Method Collection Time Re ceived Time Location / / Volume Laterality Blood (Blood, 03/12/2021 5:58 03/13/2021 7:17 Peripheral Draw) AM PEDIATRIC NEUROLOGIST AM PEDIATRIC NEUROLOGIST Ivan Lazo D.O. LAB MICROBIOLOGY - BLOOD ORD ERABLES Performing Organization Address City/[facility]/ZIP Code Phon e Number [facility] [address] TA Garber [facility] [address] [facility] [place] [address] Laboratory Medicine and Pathology [address] [place] [address] Dr. CHAPPELL Hepatitis A IgM Ab, Serum (03/12/2021 5:58 AM PEDIATRIC NEUROLOGIST) athologist [facility] Hepatitis A Negative Negative 03/13/2021 [facility] IgM Ab, S 9:50 AM PEDIATRIC NEUROLOGIST Comment: Result does not exclude the possibility of exposure to hepatitis A virus. ??Antibody level duri ng early infection stage may be below the limit of detectio n of the assay. Specimen (Source) Anatomical Collection Method Collection Time Re ceived Time Location / / Volume Laterality Blood (Blood, 03/12/2021 5:58 03/13/2021 7:18 Peripheral Draw) AM PEDIATRIC NEUROLOGIST AM PEDIATRIC NEUROLOGIST Ivan Lazo D.O. LAB MICROBIOLOGY - BLOOD ORD ERABLES Performing Organization Address City/[facility]/ZIP Code Phon e Number [facility] [address] TA Garber [place] [address] [address] [facility] [place] [address] Laboratory Medicine and Pathology [address] CHAPPELL Hepatitis B Core IgM Ab (03/12/2021 5:58 AM PEDIATRIC NEUROLOGIST) athologist Signature HBc IgM Ab, S Negative Negative 03/13/2021 [facility] 9:12 AM PEDIATRIC NEUROLOGIST Specimen (Source) Anatomical Collection Method Collection Time Re ceived Time Location / / Volume Laterality Blood (Blood, 03/12/2021 5:58 03/13/2021 7:17 Peripheral Draw) AM PEDIATRIC NEUROLOGIST AM PEDIATRIC NEUROLOGIST Ivan Lazo D.O. LAB MICROBIOLOGY - BLOOD ORD ERABLES Performing Organization Address City/State/ZIP Code Phon e Number [facility] [address] [place], [place] [address] [place] [address] [place] [address] Laboratory Medicine and Pathology [address] [place] [address] Dr. CHAPPELL Hepatitis B Surface Antigen (03/12/2021 5:58 AM PEDIATRIC NEUROLOGIST) [facility] gist Method Time Signature HBs Antigen, Nonreactive Nonreactive 03/12/2021 MKTO S 7:43 AM PEDIATRIC NEUROLOGIST Comment: Biotin has been identified by the chantelle lockett as a potential interfering substance. ??Higher concentr ations of biotin may be found in multivitamins, hair/nail supple ments, and workout supplements. ??If the result does not [facility] clinical observations, repeat testing after patient refrains fr om the use of supplements for at least 12 hours. Specimen (Source) Anatomical Collection Method Collection Time Re ceived Time Location / / Volume Laterality Blood (Blood, 03/12/2021 5:58 03/12/2021 6:10 Peripheral Draw) AM PEDIATRIC NEUROLOGIST AM PEDIATRIC NEUROLOGIST Ivan Lazo D.O. LAB MICROBIOLOGY - BLOOD ORD ERABLES Performing Organization Address City/State/ZIP Code Phon e Number [facility]- [address] [place] [address] [place] [address] System [address] (ABNORMAL) Ammonia (03/12/2021 5:58 AM PEDIATRIC NEUROLOGIST) athologist Signature Ammonia, P 127 (H) <=51 03/12/2021 MKTO mcmol/L 6:33 AM PEDIATRIC NEUROLOGIST Specimen Anatomical Collection Method Collection Time Receive d Time (Source) Location / / Volume Laterality Blood (Blood, 03/12/2021 5:58 AM 03/12/20 6:09 Venous) PEDIATRIC NEUROLOGIST AM PEDIATRIC NEUROLOGIST Ivan Lazo D.O. LAB BLOOD NON ADD-ON Performing Organization Address City/[facility]/ZIP [facility] Phon e Number [facility]- [address] [place] [address] [place] [address] System in [address] (ABNORMAL) Calcium, Ionized (03/12/2021 5:57 AM PEDIATRIC NEUROLOGIST) athologist Signature Calcium, 3.74 (L) 4.65 - 03/12/2021 MKTO Ionized, B 5.30 mg/dL 6:21 AM PEDIATRIC NEUROLOGIST Specimen Anatomical Collection Method Collection Time Receive d Time (Source) Location / / Volume Laterality Blood 03/12/2021 5:57 AM 6:10 PEDIATRIC NEUROLOGIST AM PEDIATRIC NEUROLOGIST Nunu Sanches P.A.-C., M.S. LAB BLOOD NON ADD-ON Performing Organization Address City/[facility] Phon e Number [facility]- [address] [place] [phone] [place] [address] System [address] (ABNORMAL) pH (03/12/2021 5:57 AM PEDIATRIC NEUROLOGIST) athologist Signature pH 7.63 (H) 7.35 - 7.45 03/12/2021 MKTO pH 6:21 AM PEDIATRIC NEUROLOGIST Specimen Anatomical Collection Method Collection Time Receive d Time (Source) Location / / Volume Laterality Blood 03/12/2021 5:57 AM 6:10 PEDIATRIC NEUROLOGIST AM PEDIATRIC NEUROLOGIST Nunu Sanches P.A.-C., M.S. LAB HISTORICAL ORDERS Performing Organization Address City/[facility]/ZIP [facility] Phon e Number [facility]- [address] [place] [phone] [place] [address] System in [address] (ABNORMAL) Lactate, B (03/12/2021 5:57 AM PEDIATRIC NEUROLOGIST) P athologist Signature Lactate, B 5.6 (H) 0.5 - 2.2 03/12/2021 MKTO mmol/L 6:21 AM PEDIATRIC NEUROLOGIST Specimen Anatomical Collection Method Collection Time Receive d Time (Source) Location / / Volume Laterality Blood 03/12/2021 5:57 AM 6:10 PEDIATRIC NEUROLOGIST AM PEDIATRIC NEUROLOGIST Nunu Sanches P.A.-C., M.S. LAB BLOOD NON ADD-ON Performing Organization Address City/[facility] Phon e Number [address] [address] [place] [address] S-TSH (Thyroid-Stimulating Hormone - Sensitive) (03/12/2021 5:57 AM PEDIATRIC NEUROLOGIST) athologist Signature TSH, Sensitive 1.1 0.3 - 4.2 03/12/2021 MKTO mIU/L 7:44 AM PEDIATRIC NEUROLOGIST Specimen Anatomical Collection Method Collection Time Receive d Time (Source) Location / / Volume Laterality Blood (Blood, 03/12/2021 5:57 AM 03/12/20 6:10 Venous) PEDIATRIC NEUROLOGIST AM PEDIATRIC NEUROLOGIST Nunu Sanches P.A.-C., M.S. LAB BLOOD ADD-ON Performing Organization Address City/[facility] Phon e Number [address] [address] [place] [address] System in [address] Salicylate Level (03/12/2021 5:57 AM PEDIATRIC NEUROLOGIST) athologist Signature Salicylate, P <0.3 <30.0 mg/dL 03/12/2021 MKTO 6:50 AM PEDIATRIC NEUROLOGIST Specimen Anatomical Collection Method Collection Time Receive d Time (Source) Location / / Volume Laterality Blood (Blood, 03/12/2021 5:57 AM 03/12/20 6:10 Venous) PEDIATRIC NEUROLOGIST AM PEDIATRIC NEUROLOGIST Nunu Sanches P.A.-C., M.S. LAB BLOOD ADD-ON Performing Organization Address City/[facility]/ZIP Code Phon e Number [facility] [address] [place] [address] [place] [address] System in [address] Acetaminophen Level (03/12/2021 5:57 AM PEDIATRIC NEUROLOGIST) Patholo gist Method Time Signature Acetaminophen, <7 Therapeutic 03/12/2021 MKTO P Range: 10-30 6:50 AM PEDIATRIC NEUROLOGIST mcg/mL Specimen Anatomical Collection Method Collection Time Receive d Time (Source) Location / / Volume Laterality Blood (Blood, 03/12/2021 5:57 AM 03/12/20 21 6:10 Venous) PEDIATRIC NEUROLOGIST AM PEDIATRIC NEUROLOGIST Nunu Sanches P.A.-C., M.S. LAB BLOOD ADD-ON Performing Organization Address City/[facility] Phon e Number [address] [address] [place] [address] hCG (Human Chorionic Gonadotropin), Quantitative, (03/12/2021 5:57 AM PEDIATRIC NEUROLOGIST) P athologist Signature HCG, <0.5 <5 IU/L 03/12/2021 MKTO Quantitative, 6:55 AM PEDIATRIC NEUROLOGIST , P Comment: Biotin has been identified [...] 03/12/2021 5:57 AM 03/12/20 21 6:10 Venous) PEDIATRIC NEUROLOGIST AM PEDIATRIC NEUROLOGIST Nunu Sanches P.A.-C., M.S. LAB BLOOD ADD-ON Performing Organization Address City/[facility]/ZIP [facility] Phon e Number [address] [address] [place] [address] Ethanol Level, Serum (03/12/2021 5:57 AM PEDIATRIC NEUROLOGIST) athologist Signature Ethanol, P <10 <10 mg/dL 03/12/2021 6:50 MKTO AM PEDIATRIC NEUROLOGIST Specimen Anatomical Collection Method Collection Time Receive d Time (Source) Location / / Volume Laterality Blood (Blood, 03/12/2021 5:57 AM 03/12/20 21 6:10 Venous) PEDIATRIC NEUROLOGIST AM PEDIATRIC NEUROLOGIST Nunu Sanches P.A.-C., M.S. LAB BLOOD NON ADD-ON Performing Organization Address City/[facility] Phon e Number [facility]- [facility] [place] [address] [place] [address] [address] in [address] (ABNORMAL) NT-Pro B-Type Natriuretic Peptide (BNP) (03/12/2021 5:57 AM PEDIATRIC NEUROLOGIST) athologist Signature NT-Pro BNP 1032 (H) <=140 pg/mL 03/12/2021 MKTO 7:44 AM PEDIATRIC NEUROLOGIST Comment: NT-proBNP values less than 300 pg/mL [...] supplements. ??If the result does not [facility] clinical observations, repeat testing after patient refrains fr om the use of supplements for at least 12 hours. Specimen Anatomical Collection Method Collection Time Receive d Time (Source) Location / / Volume Laterality Blood (Blood, 03/12/2021 5:57 AM 03/12/20 6:10 Venous) PEDIATRIC NEUROLOGIST AM PEDIATRIC NEUROLOGIST Nunu Sanches P.A.-C., M.S. LAB BLOOD ADD-ON Performing Organization Address City/[facility]/ZIP Code Phon e Number [facility]- [facility] [place] [address] [facility] [place] [address] System in [address] Lipase (03/12/2021 5:57 AM PEDIATRIC NEUROLOGIST) P athologist Signature Lipase, P 18 13 - 60 U/L 03/12/2021 6:50 MKTO AM PEDIATRIC NEUROLOGIST Specimen Anatomical Collection Method Collection Time Receive d Time (Source) Location / / Volume Laterality Blood (Blood, 03/12/2021 5:57 AM 03/12/20 6:10 Venous) PEDIATRIC NEUROLOGIST AM PEDIATRIC NEUROLOGIST Nunu Sanches P.A.-C., M.S. LAB BLOOD ADD-ON Performing Organization Address City/State/ZIP Code Phon e Number [facility]- [address] [place] [phone] [place] [address] System in [address] (ABNORMAL) Prothrombin Time (PT) (03/12/2021 5:57 AM PEDIATRIC NEUROLOGIST) Patholo gist Method Time Signature Prothrombin 25.3 (H) 9.4 - 12.5 03/12/2021 MKTO Time, P sec 6:26 AM PEDIATRIC NEUROLOGIST INR 2.2 0.9 - 1.1 03/12/2021 MKTO 6:26 AM PEDIATRIC NEUROLOGIST Comment: ----ADDITIONAL INFORMATION---- Standard intensity warfarin therapeutic range: 2.0 to 3.0 ?? High intensity warfarin therapeutic rang e: 2.5 to 3.5 Specimen Anatomical Collection Method Collection Time Receive d Time (Source) Location / / Volume Laterality Blood (Blood, 03/12/2021 5:57 AM 03/12/20 21 6:10 Venous) PEDIATRIC NEUROLOGIST AM PEDIATRIC NEUROLOGIST Nunu Sanches P.A.-C., M.S. LAB BLOOD ADD-ON Performing Organization Address City/State/ZIP Code Phon e Number [facility]- [address] [place] [address] [place] [address] System in [address] (ABNORMAL) Phosphorus Inorganic (03/12/2021 5:57 AM PEDIATRIC NEUROLOGIST) P athologist Signature Phosphorus 1.9 (L) 2.5 - 4.5 03/12/2021 MKTO (Inorganic), P mg/dL 6:58 AM PEDIATRIC NEUROLOGIST Specimen Anatomical Collection Method Collection Time Receive d Time (Source) Location / / Volume Laterality Blood (Blood, 03/12/2021 5:57 AM 03/12/20 6:10 Venous) PEDIATRIC NEUROLOGIST AM PEDIATRIC NEUROLOGIST Nunu Sanches P.A.-C., M.S. LAB BLOOD ADD-ON Performing Organization Address [facility] Phon e Number [address] [address] [place] [address] (ABNORMAL) Magnesium (03/12/2021 5:57 AM PEDIATRIC NEUROLOGIST) athologist Signature Magnesium, P 1.1 (L) 1.7 - 2.3 03/12/2021 MKTO mg/dL 6:58 AM PEDIATRIC NEUROLOGIST Specimen Anatomical Collection Method Collection Time Receive d Time (Source) Location / / Volume Laterality Blood (Blood, 03/12/2021 5:57 AM 03/12/20 6:10 Venous) PEDIATRIC NEUROLOGIST AM PEDIATRIC NEUROLOGIST Nunu Sanches P.A.-C., M.S. LAB BLOOD ADD-ON Performing Organization Address [facility] Phon e Number [address] [address] [place] [address] (ABNORMAL) Comprehensive Metabolic Panel (03/12/2021 5:57 AM PEDIATRIC NEUROLOGIST) P athologist Signature Potassium, P 3.0 (L) 3.6 - 5.2 03/12/2021 MKTO mmol/L 6:50 AM PEDIATRIC NEUROLOGIST Sodium, P 132 (L) 135 - 145 03/12/2021 MKTO mmol/L 6:50 AM PEDIATRIC NEUROLOGIST Chloride, P 94 (L) 98 - 107 03/12/2021 MKTO mmol/L 6:50 AM PEDIATRIC NEUROLOGIST Bicarbonate, P 17 (L) 22 - 29 03/12/2021 MKTO mmol/L 6:50 AM PEDIATRIC NEUROLOGIST Anion Gap, P 21 (H) 7 - 15 03/12/2021 MKTO 6:50 AM PEDIATRIC NEUROLOGIST BUN (Blood Urea 8 6 - 21 03/12/2021 MKTO Nitrogen), P mg/dL 6:50 AM PEDIATRIC NEUROLOGIST Creatinine 0.64 0.59 - 03/12/2021 MKTO 1.04 mg/dL 6:50 AM PEDIATRIC NEUROLOGIST eGFR-Black/Afri >90 >=60 03/12/2021 MKTO can Welsh mL/min/BSA 6:50 AM PEDIATRIC NEUROLOGIST Comment: ----ADDITIONAL INFORMATION---- Estimated GFR calculated using the 2009 CKD_EPI creatinine equation. eGFR Non-Black/ >90 >=60 mL/min/BSA 03/12/2021 6:50 AM PEDIATRIC NEUROLOGIST MKTO Comment: ----ADDITIONAL INFORMATION---- Estimated GFR calculated using the 2009 CKD_EPI creatinine equation. Calcium, Total, P 8.0 (L) 8.6 - 10.0 mg/dL 03/12/2021 6:50 AM PEDIATRIC NEUROLOGIST MKTO Glucose, P 118 70 - 140 mg/dL 03/12/2021 6:50 AM PEDIATRIC NEUROLOGIST M KTO Protein, Total, P 5.6 (L) 6.3 - 7.9 g/dL 03/12/2021 6:50 A M PEDIATRIC NEUROLOGIST MKTO Albumin, P 2.9 (L) 3.5 - 5.0 g/dL 03/12/2021 6:50 AM PEDIATRIC NEUROLOGIST M KTO Aspartate Aminotransferase 45 (H) 8 - 43 U/L 03/12/2021 6 :50 AM PEDIATRIC NEUROLOGIST MKTO (AST), P Alkaline Phosphatase, P 126 (H) 35 - 104 U/L 03/12/2021 6: 50 AM PEDIATRIC NEUROLOGIST MKTO Alanine Aminotransferase 13 7 - 45 U/L 03/12/2021 6:5 0 AM PEDIATRIC NEUROLOGIST MKTO (ALT), P Bilirubin, Total, P 6.6 (H) <=1.2 mg/dL 03/12/2021 6:50 AM PEDIATRIC NEUROLOGIST MKTO Specimen Anatomical Collection Method Collection Time Receive d Time (Source) Location / / Volume Laterality Blood (Blood, 03/12/2021 5:57 AM 03/12/20 6:10 Venous) PEDIATRIC NEUROLOGIST AM PEDIATRIC NEUROLOGIST Nunu Sanches P.A.-C., M.S. LAB BLOOD ADD-ON Performing Organization Address [facility] Phon e Number [facility]- [address] [place] [phone] [place] [address] System in [address] (ABNORMAL) CBC without Differential (03/12/2021 5:57 AM PEDIATRIC NEUROLOGIST) [facility] Method Time Signature Hemoglobin 7.7 (L) 11.6 - 03/12/2021 MKTO 15.0 g/dL 6:26 AM PEDIATRIC NEUROLOGIST Hematocrit 22.6 (L) 35.5 - 03/12/2021 MKTO 44.9 % 6:26 AM PEDIATRIC NEUROLOGIST Erythrocytes 2.12 (L) 3.92 - 03/12/2021 MKTO 5.13 6:26 AM PEDIATRIC NEUROLOGIST x10(12)/L MCV 106.6 (H) 78.2 - 03/12/2021 MKTO 97.9 fL 6:26 AM PEDIATRIC NEUROLOGIST RBC Distrib Width 15.7 12.2 - 03/12/2021 MKTO 16.1 % 6:26 AM PEDIATRIC NEUROLOGIST Platelet Count 144 (L) 157 - 371 03/12/2021 MKTO x10(9)/L 6:26 AM PEDIATRIC NEUROLOGIST Leukocytes 12.7 (H) 3.4 - 9.6 03/12/2021 MKTO x10(9)/L 6:26 AM PEDIATRIC NEUROLOGIST Specimen Anatomical Collection Method Collection Time Receive d Time (Source) Location / / Volume Laterality Blood (Blood, 03/12/2021 5:57 AM 03/12/20 21 6:10 Venous) PEDIATRIC NEUROLOGIST AM PEDIATRIC NEUROLOGIST Nunu Sanches P.A.-C., M.S. LAB BLOOD ADD-ON Performing Organization Address [facility] Phon e Number [facility]- [address] [place] [address] [place] [address] [facility] in [address] Bacteria / Raudel Culture, Blood #1 (03/12/2021 5:57 AM PEDIATRIC NEUROLOGIST) [facility] Method Time Signature Bacteria/Adriana No growth 03/17/2021 MKTO da Culture, after 5 7:05 AM PEDIATRIC NEUROLOGIST Blood day/s of incubation. Specimen (Source) Anatomical Collection Method Collection Time Re ceived Time Location / / Volume Laterality Blood (Blood, 03/12/2021 5:57 03/12/2021 6:10 Peripheral Draw) AM PEDIATRIC NEUROLOGIST AM PEDIATRIC NEUROLOGIST Comment: Specimen Source Site: Blood Nunu Sanches P.A.-C. MSumaSSuma LAB MICROBIOLOGY - GENE RAL ORDERABLES Performing Organization Address [facility] Phon e Number [address] [address] [place] [address] Glucose, POCT (03/12/2021 5:48 AM PEDIATRIC NEUROLOGIST) athologist Signature Glucose, POCT, 120 70 - 140 03/12/2021 [facility] B mg/dL 5:48 AM PEDIATRIC NEUROLOGIST Specimen Anatomical Collection Method Collection Time Receive d Time (Source) Location / / Volume Laterality Blood 03/12/2021 5:48 AM 7:25 PEDIATRIC NEUROLOGIST AM PEDIATRIC NEUROLOGIST Generic Rals LAB POCT ORDERABLES-MANUAL Performing Organization Address [facility] Phon e Number [facility]- [address] [place] [address] [place] [address] documented in this encounter Visit Diagnoses Diagnosis Change Mental Status - Primary Change Mental Status Cirrhosis Alcoholic (HCC) Cirrhosis Alcoholic (HCC) Acute Respiratory Failure (HCC) [...] tablet 650 mg Given 03/19/2021 5:57 PM PEDIATRIC NEUROLOGIST 650 mg (TYLENOL) 650 mg, oral, Once, On Wed03/19/21 at 1800, For 1 dose albumin human 25 % injection 25 g New Bag 03/19/2021 6:39 AM PEDIATRIC NEUROLOGIST 25 g 25 g, intravenous, Every 6 hours scheduled, First dose on Wed03/12/21 at 1400, If no infusion rate specified: Administer the 25% solution at 100 mL/hr New Bag 03/19/2021 12:15 AM PEDIATRIC NEUROLOGIST 25 g New Bag 03/18/2021 6:32 PM PEDIATRIC NEUROLOGIST 25 g albumin human 5 % injection 12.5 g New 03/12/2021 8:49 AM PEDIATRIC NEUROLOGIST 12.5 g 12.5 g, intravenous, Every 1 hour, First dose on Wed03/12/21 at 0815, For 2 doses, If no infusion rate specified: Administer the 5% solution at 999 mL/hr or less if ICU/shock, otherwise infuse at 250 mL/hr. New 03/12/2021 8:48 AM PEDIATRIC NEUROLOGIST 12.5 g albumin human 5 % injection 25 g New Bag 03/13/2021 7:30 PM PEDIATRIC NEUROLOGIST 25 g 250 mL/hr 25 g, intravenous, Once, On Luz Marina 03/13/21 at 1900, For 1 dose, If no infusion rate specified: Administer the 5% solution at 999 mL/hr or less if ICU/shock, otherwise infuse at 250 mL/hr. calcium chloride in NaCl 0.9% IVPB 1 g 03/12/2021 2:06 PM PEDIATRIC NEUROLOGIST 1 g 240 mL/hr 1 g, intravenous, at 240 mL/hr, Administer over 15 Minutes, Once, On Wed03/12/21 at 1245, For 1 dose, Infuse each gram over at least 15 minutes. calcium gluc in NaCl, iso-osm IVPB 2 g 03/16/2021 5:53 AM PEDIATRIC NEUROLOGIST 2 g 400 mL/hr 2 g, intravenous, at 400 mL/hr, Administer over 15 Minutes, Once, On Wed03/16/21 at 0530, For 1 dose calcium gluconate in NaCl (iso-osm) 03/12/2021 8:03 AM PEDIATRIC NEUROLOGIST 1 g 200 mL/hr IVPB 1 g 1 g, intravenous, at 200 mL/hr, Administer over 15 Minutes, Once, On Wed03/12/21 at 0730, For 1 dose cefTRIAXone injection 1 g (ROCEPHIN) Given 03/19/2021 9:08 AM PEDIATRIC NEUROLOGIST 1 g 1 g, intravenous, Daily, First dose (after last modification) on Wed03/19/21 at 0900, If needed, reconstitute vial per package insert instructions. See IVAG for administration guidelines. , Drug Monitoring Program: Pharmacist to adjust medication dosing based on indication and drug clearance factors., Indications: sbp prophylaxis cefTRIAXone injection 2 g (ROCEPHIN) Given 03/18/2021 8:48 AM PEDIATRIC NEUROLOGIST 2 g 2 g, intravenous, Daily, First dose (after last modification) on Wed03/18/21 at 0900, If needed, reconstitute vial per package insert instructions. See IVAG for administration guidelines. , Drug Monitoring Program: Pharmacist to adjust medication dosing based on indication and drug clearance factors., Indications: sbp prophylaxis ciprofloxacin tablet 500 mg (CIPRO) Given 03/24/2021 6:18 AM PEDIATRIC NEUROLOGIST 500 mg 500 mg, oral, Daily before breakfast, First dose on Luz Marina 03/20/21 at 0700, Take 2 hours before or 6 hours after antacids containing magnesium or aluminum, sucralfate, didanosine, polymeric phosphate binders, or products containing calcium, iron, or zinc., Drug Monitoring Program: Pharmacist to adjust medication dosing based on indication and drug clearance factors., Indications: Prophylaxis, medical Given 03/23/2021 6:34 AM PEDIATRIC NEUROLOGIST 500 mg Given 03/22/2021 7:02 AM PEDIATRIC NEUROLOGIST 500 mg dexmedeTOMIDine 4 mcg/mL Rate/Dose Change 03/14/2021 9:18 0.2 mcg/k g/hr 2.71 mL/hr in NaCl 0.9% 100 mL AM PEDIATRIC NEUROLOGIST infusion (PRECEDEX) 0.2-1.5 mcg/kg/hr ? 54.2 kg [...] care unit Rate/Dose Verify 03/14/2021 9:00 AM PEDIATRIC NEUROLOGIST 0.4 mcg/kg/hr 5.42 mL/hr Rate/Dose Change 03/14/2021 8:53 AM PEDIATRIC NEUROLOGIST 0.4 mcg/kg/hr 5.42 mL/hr doxycycline 100 mg in NaCl 0.9% New Bag 03/12/2021 9:13 PM PEDIATRIC NEUROLOGIST 100 mg 100 mL/hr IVPB (VIBRAMYCIN) 100 mg, intravenous, at 100 mL/hr, Administer over 60 Minutes, Every 12 hours scheduled, First dose on Wed03/12/21 at 0900, Mini-Bag Plus bag, Indications: Intra-abdominal infection, community acquired, Respiratory tract infection, healthcare associated New Bag 03/12/2021 8:59 AM PEDIATRIC NEUROLOGIST 100 mg 100 mL/hr doxycycline 100 mg in NaCl 0.9% New Bag 03/17/2021 8:44 PM PEDIATRIC NEUROLOGIST 100 mg 100 mL/hr IVPB (VIBRAMYCIN) 100 mg, intravenous, at 100 mL/hr, Administer over 60 Minutes, Every 12 hours scheduled, First dose (after last modification) on Luz Marina 03/13/21 at 0900, For 5 days, Mini-Bag Plus bag, Indications: Intra-abdominal infection, community acquired, Respiratory tract infection, healthcare associated New Bag 03/17/2021 11:08 AM PEDIATRIC NEUROLOGIST 100 mg 100 mL/hr New Bag 03/16/2021 8:38 PM PEDIATRIC NEUROLOGIST 100 mg 100 mL/hr folic acid tablet 1 mg Given 03/24/2021 8:52 AM PEDIATRIC NEUROLOGIST 1 mg 1 mg, oral, Daily, First dose on Luz Marina 03/13/21 at 1230 Given 03/23/2021 8:10 AM PEDIATRIC NEUROLOGIST 1 mg Given 03/22/2021 10:22 AM PEDIATRIC NEUROLOGIST 1 mg furosemide injection 20 mg (LASIX) Given 03/19/2021 9:08 AM PEDIATRIC NEUROLOGIST 20 mg 20 mg, intravenous, Every 24 hours scheduled, First dose on Wed03/14/21 at 1230, Adults: Doses less than 120 mg: IV push over 20 mg/minute. Doses 120 mg or greater: IVPB at 4 mg/minute. Peds/Neonates: Doses less than 120 mg over 0.5 mg/kg/minute. Doses 120 mg or greater: IVPB at 4 mg/minute. Given 03/18/2021 8:49 AM PEDIATRIC NEUROLOGIST 20 mg Given 03/17/2021 10:48 AM PEDIATRIC NEUROLOGIST 20 mg furosemide tablet 20 mg (LASIX) Given 03/24/2021 8:52 AM PEDIATRIC NEUROLOGIST 20 mg 20 mg, oral, Daily, First dose on [place] 03/20/21 at 0900 Given 03/23/2021 8:10 AM PEDIATRIC NEUROLOGIST 20 mg Given 03/22/2021 10:22 AM PEDIATRIC NEUROLOGIST 20 mg heparin (porcine) Given 03/15/2021 5:35 AM PEDIATRIC NEUROLOGIST 5,000 Units Left Upper Arm injection 5,000 Units (Back) 5,000 Units, subcutaneous, Every 8 hours scheduled, First dose on Wed03/12/21 at 0645 Given 03/14/2021 8:40 PM PEDIATRIC NEUROLOGIST 5,000 Units Left Upper Arm (Back) Given 03/14/2021 2:51 PM PEDIATRIC NEUROLOGIST 5,000 Units Right Lower Abdomen iohexoL 300 mg iodine/mL solution 1-200 mL Given 03/12/2021 1:50 PM PEDIATRIC NEUROLOGIST 100 mL (OMNIPAQUE) 1-200 mL, intravenous, Once in imaging, contrast, Starting on Wed03/12/21 at 1346, For 1 dose, Dose per Radiant Medication Guidelines iohexoL 300 mg iodine/mL solution 1-200 mL Given 03/16/2021 2:37 AM PEDIATRIC NEUROLOGIST 100 mL (OMNIPAQUE) 1-200 mL, intravenous, Once in imaging, contrast, for Ct exam, Starting on Wed03/16/21 at 0230, For 1 dose, Dose per Radiant Medication Guidelines ketamine injection (KETALAR) Given 03/12/2021 9:42 AM PEDIATRIC NEUROLOGIST 30 mg Code/trauma/sedation medication, Starting on Wed03/12/21 at 0942 ketamine injection 60 mg (KETALAR) Given 03/12/2021 9:12 AM PEDIATRIC NEUROLOGIST 20 mg 60 mg, intravenous, Once, On Wed03/12/21 at 0845, For 1 dose Given 03/12/2021 8:50 AM PEDIATRIC NEUROLOGIST 20 mg lactulose (CHRONULAC) 200 g in sterile Given 03/12/2021 8:18 AM PEDIATRIC NEUROLOGIST 1,000 mL water 1,000 mL enema 1,000 mL, rectal, Once, On Wed03/12/21 at 0615, For 1 dose, Total dose= 1000 mL; Instill ~ 300 mL at a time, and retain for 15-20 minutes each Rectal Use Only. Refrigerate. PROTECT FROM LIGHT. lactulose solution 30 g (CHRONULAC) Given 03/24/2021 8:52 AM PEDIATRIC NEUROLOGIST 30 g 30 g, gastric tube, 3 times daily, First dose on Wed03/12/21 at 1400, Aim for 500 cc stool in 24 hours or 3-4 loose bowel movements per day Given 03/23/2021 9:49 PM PEDIATRIC NEUROLOGIST 30 g Given 03/23/2021 2:04 PM PEDIATRIC NEUROLOGIST 30 g LORazepam injection 1 mg (ATIVAN) 1 mg, intravenous, Every 4 hours PRN, se hui, Starting on [place] 03/20/21 at 2120, For intravenous use, dilute with equal volume of 0.9% NS magnesium oxide tablet 400 mg (MAG-OX) Given 03/24/2021 6:18 AM PEDIATRIC NEUROLOGIST 400 mg 400 mg, oral, 2 times daily before breakfast and dinner, First dose on 03/23/21 at 0700 Given 03/23/2021 3:41 PM PEDIATRIC NEUROLOGIST 400 mg Given 03/23/2021 6:34 AM PEDIATRIC NEUROLOGIST 400 mg magnesium sulfate in D5W IVPB 1 g New Bag 03/15/2021 6:10 PM PEDIATRIC NEUROLOGIST 1 g 100 mL/hr 1 g, intravenous, at 100 mL/hr, Administer over 60 Minutes, Once, On 03/15/21 at 1800, For 1 dose, Over 1 hours. , Monitor the following for replacement: Magnesium magnesium sulfate in water IVPB 2 g New Bag 03/12/2021 8:03 AM PEDIATRIC NEUROLOGIST 2 g 25 mL/hr 2 g, intravenous, at 25 mL/hr, Administer over 120 Minutes, Once, On Wed03/12/21 at 0715, For 1 dose magnesium sulfate in water IVPB 2 g New Bag 03/15/2021 5:26 AM PEDIATRIC NEUROLOGIST 2 g 25 mL/hr 2 g, intravenous, at 25 mL/hr, Administer over 120 Minutes, Once, On 03/15/21 at 0600, For 1 dose magnesium sulfate in water IVPB 2 g New Bag 03/16/2021 5:08 AM PEDIATRIC NEUROLOGIST 2 g 25 mL/hr 2 g, intravenous, at 25 mL/hr, Administer over 120 Minutes, Once, On 03/16/21 at 0500, For 1 dose magnesium sulfate in New Bag 03/22/2021 4:18 PM PEDIATRIC NEUROLOGIST 2 g 25 mL/hr Right Antecubital water IVPB 2 g 2 g, intravenous, at 25 mL/hr, Administer over 120 Minutes, Once, On 03/22/21 at 1530, For 1 dose magnesium sulfate in water IVPB Rate/Dose Change 03/12/2021 4:02 PM PEDIATRIC NEUROLOGIST 50 mL/hr 4 g 4 g, intravenous, at 25 mL/hr, Administer over 240 Minutes, Once, On Wed03/12/21 at 1345, For 1 dose New Bag 03/12/2021 2:27 PM PEDIATRIC NEUROLOGIST 4 g 25 mL/hr magnesium sulfate in water IVPB 4 g New Bag 03/19/2021 3:40 PM PEDIATRIC NEUROLOGIST 4 g 25 mL/hr 4 g, intravenous, at 25 mL/hr, Administer over 240 Minutes, Once, On Wed03/19/21 at 1000, For 1 dose, Over 4 hours. melatonin tablet 3 mg Given 03/17/2021 2:30 AM PEDIATRIC NEUROLOGIST 3 mg 3 mg, oral, Once, On Wed03/17/21 at 0230, For 1 dose melatonin tablet 6 mg Given 03/23/2021 9:49 PM PEDIATRIC NEUROLOGIST 6 mg 6 mg, oral, Daily at bedtime, First dose (after last modification) on Wed03/17/21 at 2100 Given 03/23/2021 12:19 AM PEDIATRIC NEUROLOGIST 6 mg Given 03/22/2021 12:48 AM PEDIATRIC NEUROLOGIST 6 mg multivitamin (Adult MVI) 10 mL in NaCl New Bag 03/15/2021 8:06 AM PEDIATRIC NEUROLOGIST 255 mL/hr 0.9% 500 mL IVPB intravenous, at 255 mL/hr, Administer over 2 Hours, Daily, First dose on [place] 03/13/21 at 0900, For 3 days, Protect from light. New Bag 03/14/2021 8:15 AM PEDIATRIC NEUROLOGIST 255 mL/hr New Bag 03/13/2021 9:40 AM PEDIATRIC NEUROLOGIST 255 mL/hr NaCl 0.9% infusion Rate/Dose Verify 03/16/2021 12:00 AM 20 mL/hr 20 mL/hr 20-500 mL/hr, intravenous, PEDIATRIC NEUROLOGIST Once as needed, Between Units of Blood Products, Starting on Wed03/15/21 at 1218, For 1 dose, Infuse at the same rate as the blood infusion until tubing cleared. Nurse may reduce rate to 20 mL/hour or as otherwise directed until next blood infusion arrives then discontinue when infusion complete. Rate/Dose Verify 03/15/2021 9:00 PM PEDIATRIC NEUROLOGIST 20 mL/hr 20 mL/hr Rate/Dose Verify 03/15/2021 8:00 PM PEDIATRIC NEUROLOGIST 20 mL/hr 20 mL/hr naloxone injection 0.2 [...] mL/hr mcg/mL in D5W 250 mL AM PEDIATRIC NEUROLOGIST infusion 0-0.3 mcg/kg/min ? 54.2 kg Dosing weight (0-60.975 mL/hr, rounded to 0-60.98 mL/hr), intravenous, Continuous, Starting on Wed03/12/21 at 1100, Protect from light and avoid extravasation, Patient Type: Sepsis, Initiate at: 0.05 mcg/kg/min, Titrate at: 0.05 mcg/kg/min. every 5 min., Wean at: 0.01 mcg/kg/min. every 5 min., Goal: Other, Goal: MAP 60-65 New Bag 03/14/2021 10:03 PM PEDIATRIC NEUROLOGIST 0.01 mcg/kg/min 2.03 mL/hr Rate/Dose Change 03/13/2021 12:23 PM PEDIATRIC NEUROLOGIST 0.02 mcg/kg/min 4.07 mL/hr norepinephrine 16 mcg/mL in NaCl Rate/Dose 03/12/2021 0.07 14. 2 0.9% 250 mL infusion Change 10:01 AM PEDIATRIC NEUROLOGIST mcg/kg/min mL/hr Code/trauma/sedation continuous med, Starting on Wed03/12/21 at 0942 Rate/Dose Change 03/12/2021 9:53 AM PEDIATRIC NEUROLOGIST 0.08 mcg/kg/min 16.3 mL/hr Rate/Dose Change 03/12/2021 9:45 AM PEDIATRIC NEUROLOGIST 0.1 mcg/kg/min 20.3 mL/hr octreotide 2 mcg/mL in Rate/Dose Verify 03/13/2021 8:00 AM 25 mcg/hr 12.5 mL/hr NaCl 0.9% 250 mL infusion PEDIATRIC NEUROLOGIST (SandoSTATIN) 25 mcg/hr (12.5 mL/hr), intravenous, Continuous, Starting on Wed03/12/21 at 1000, Protect from light. Rate/Dose Verify 03/13/2021 7:00 AM PEDIATRIC NEUROLOGIST 25 mcg/hr 12.5 mL/hr Rate/Dose Verify 03/13/2021 6:00 AM PEDIATRIC NEUROLOGIST 25 mcg/hr 12.5 mL/hr octreotide 2 mcg/mL in Rate/Dose Verify 03/16/2021 9:00 AM 25 mcg/hr 12.5 mL/hr NaCl 0.9% 250 mL infusion PEDIATRIC NEUROLOGIST (SandoSTATIN) 25 mcg/hr (12.5 mL/hr), intravenous, Continuous, Starting on Wed03/13/21 at 0845, For 72 hours, Protect from light. Rate/Dose Verify 03/16/2021 8:00 AM PEDIATRIC NEUROLOGIST 25 mcg/hr 12.5 mL/hr Rate/Dose Verify 03/16/2021 7:00 AM PEDIATRIC NEUROLOGIST 25 mcg/hr 12.5 mL/hr OLANZapine tablet 5 mg (ZyPREXA) Given 03/18/2021 9:29 PM PEDIATRIC NEUROLOGIST 5 mg 5 mg, oral, Daily at bedtime, First dose on Wed03/18/21 at 1730 OLANZapine tablet 5 mg (ZyPREXA) Given 03/22/2021 12:48 AM PEDIATRIC NEUROLOGIST 5 mg 5 mg, oral, Bedtime PRN, sleep, anxiety, Starting on Wed03/19/21 at 1830 Given 03/21/2021 1:11 AM PEDIATRIC NEUROLOGIST 5 mg oxyCODONE IR tablet 5 mg (ROXICODONE) Given 03/21/2021 3:28 AM PEDIATRIC NEUROLOGIST 5 mg 5 mg, oral, Every 4 hours PRN, moderate pain or score 4-6 of 10, severe pain or score 7-10 of 10, Starting on Wed03/14/21 at 1957 Given 03/20/2021 1:56 AM PEDIATRIC NEUROLOGIST 5 mg Given 03/16/2021 4:23 AM PEDIATRIC NEUROLOGIST 5 mg oxyCODONE IR tablet 5 mg (ROXICODONE) Given 03/22/2021 7:02 AM PEDIATRIC NEUROLOGIST 5 mg 5 mg, oral, Once as needed, moderate pain or score 4-6 of 10, severe pain or score 7-10 of 10, Starting on Wed03/22/21 at 0354, For [address] tablet 40 mg (PROTONIX) Given 03/24/2021 8:52 AM PEDIATRIC NEUROLOGIST 40 mg 40 mg, oral, 2 times daily, First dose on Wed03/19/21 at 2100, Swallow whole. Do NOT crush, chew, or split tablet. Given 03/23/2021 9:49 PM PEDIATRIC NEUROLOGIST 40 mg Given 03/23/2021 8:09 AM PEDIATRIC NEUROLOGIST 40 mg pantoprazole injection 40 mg (PROTONIX) Given 03/12/2021 8:49 AM PEDIATRIC NEUROLOGIST 40 mg 40 mg, intravenous, Every 24 hours scheduled, First dose on Wed03/12/21 at 0900, Administer IV push over 2 minutes. Add 10 mL NS to 40 mg vial for a final concentration of 4 mg/mL. pantoprazole injection 40 mg (PROTONIX) Given 03/19/2021 9:08 AM PEDIATRIC NEUROLOGIST 40 mg 40 mg, intravenous, Every 12 hours scheduled, First dose (after last modification) on Wed03/12/21 at 2100, Administer IV push over 2 minutes. Add 10 mL NS to 40 mg vial for a final concentration of 4 mg/mL. Given 03/18/2021 8:49 AM PEDIATRIC NEUROLOGIST 40 mg Given 03/17/2021 8:34 PM PEDIATRIC NEUROLOGIST 40 mg phenylephrine injection Given 03/12/2021 9:46 AM PEDIATRIC NEUROLOGIST 100 mcg Code/trauma/sedation medication, Starting on Wed03/12/21 at 0946 phytonadione (vitamin K1) 10 mg in New Bag 03/16/2021 8:30 AM PEDIATRIC NEUROLOGIST 10 mg 51 mL/hr NaCl 0.9% IVPB (AQUA-MEPHYTON) 10 mg, intravenous, at 51 mL/hr, Administer over 60 Minutes, Daily, First dose on Wed03/14/21 at 1045, For 3 doses, Protect from light. New Bag 03/15/2021 9:18 AM PEDIATRIC NEUROLOGIST 10 mg 51 mL/hr New Bag 03/14/2021 11:34 AM PEDIATRIC NEUROLOGIST 10 mg 51 mL/hr phytonadione (vitamin K1) 10 mg in New Bag 03/16/2021 8:15 AM PEDIATRIC NEUROLOGIST 10 mg 51 mL/hr NaCl 0.9% IVPB (AQUA-MEPHYTON) 10 mg, intravenous, at 51 mL/hr, Administer over 60 Minutes, Once, On 03/16/21 at 0800, For 1 dose, Protect from light. phytonadione (vitamin K1) tablet 10 mg Given 03/23/2021 11:11 AM PEDIATRIC NEUROLOGIST 10 mg (MEPHYTON) 10 mg, oral, Once, On 03/23/21 at 1045, For 1 dose phytonadione (vitamin K1) tablet 5 mg Given 03/21/2021 8:[address] 5 mg (MEPHYTON) 5 mg, oral, Daily, First dose on Wed03/19/21 at 1300, For 3 doses Given 03/20/2021 10:15 AM PEDIATRIC NEUROLOGIST 5 mg Given 03/19/2021 1:56 PM PEDIATRIC NEUROLOGIST 5 mg phytonadione (vitamin K1) tablet 5 mg Given 03/22/2021 10:22 AM PEDIATRIC NEUROLOGIST 5 mg (MEPHYTON) 5 mg, oral, Daily, First dose (after last reorder) on 03/22/21 at 0900, For 3 doses piperacillin-tazobactam in dextrose New Bag 03/13/2021 5:34 AM PEDIATRIC NEUROLOGIST 3.375 g 100 mL/hr (iso-osm) IVPB 3.375 g (ZOSYN) 3.375 g, intravenous, at 100 mL/hr, Administer over 0.5 Hours, Every 6 hours scheduled, First dose on Wed03/12/21 at 0815, Drug Monitoring Program: Pharmacist to adjust medication dosing based on indication and drug clearance factors., Indications: Intra-abdominal infection, community acquired New Bag 03/12/2021 11:36 PM PEDIATRIC NEUROLOGIST 3.375 g 100 mL/hr New Bag 03/12/2021 6:14 PM PEDIATRIC NEUROLOGIST 3.375 g 100 mL/hr piperacillin-tazobactam in dextrose New Bag 03/17/2021 11:49 P M 3.375 g 100 mL/hr (iso-osm) IVPB 3.375 g (ZOSYN) PEDIATRIC NEUROLOGIST 3.375 g, intravenous, at 100 mL/hr, Administer over 0.5 Hours, Every 6 hours scheduled, First dose (after last modification) on [place] 03/13/21 at 1200, For 19 doses, Drug Monitoring Program: Pharmacist to adjust medication dosing based on indication and drug clearance factors., Indications: Intra-abdominal infection, community acquired New Bag 03/17/2021 6:25 PM PEDIATRIC NEUROLOGIST 3.375 g 100 mL/hr New Bag 03/17/2021 1:09 PM PEDIATRIC NEUROLOGIST 3.375 g 100 mL/hr potassium chloride ER [...] tablet 40 mEq Given 03/22/2021 4:19 PM PEDIATRIC NEUROLOGIST 40 mEq (KLORCON/K-TAB) 40 mEq, oral, Once, On 03/22/21 at 1415, For 1 dose, Swallow whole. Do NOT crush, chew, or split tablet. potassium chloride ER tablet 40 mEq Given 03/23/2021 8:09 AM PEDIATRIC NEUROLOGIST 40 mEq (KLORCON/K-TAB) 40 mEq, oral, Once, [...] 10 mEq New Bag 03/12/2021 9:15 AM PEDIATRIC NEUROLOGIST 10 mEq 100 mL/hr 10 mEq, intravenous, at 100 mL/hr, Administer over 60 Minutes, Every 1 hour, First dose on Wed03/12/21 at 0715, For 2 doses, Peripheral Line: 10 mEq per bag over 1 hour each. New Bag 03/12/2021 8:03 AM PEDIATRIC NEUROLOGIST 10 mEq 100 mL/hr potassium chloride IVPB 10 mEq New Bag 03/14/2021 9:16 AM PEDIATRIC NEUROLOGIST 10 mEq 100 mL/hr 10 mEq, intravenous, at 100 mL/hr, Administer over 60 Minutes, Every 1 hour, First dose on Wed03/14/21 at 0730, For 3 doses, Peripheral Line: 10 mEq per bag over 1 hour each. New Bag 03/14/2021 9:13 AM PEDIATRIC NEUROLOGIST 10 mEq 100 mL/hr New Bag 03/14/2021 8:10 AM PEDIATRIC NEUROLOGIST 10 mEq 100 mL/hr potassium chloride IVPB 10 mEq New Bag 03/18/2021 4:59 PM PEDIATRIC NEUROLOGIST 10 mEq 100 mL/hr 10 mEq, intravenous, at 100 mL/hr, Administer over 60 Minutes, Every 1 hour, First dose on Wed03/18/21 at 1200, For 4 doses, Peripheral Line: 10 mEq per bag over 1 hour each. New Bag 03/18/2021 3:41 PM PEDIATRIC NEUROLOGIST 10 mEq 100 mL/hr New Bag 03/18/2021 2:28 PM PEDIATRIC NEUROLOGIST 10 mEq 100 mL/hr potassium chloride IVPB 20 mEq in New Bag 03/12/2021 9:[address] 20 mEq 100 mL/hr 100 mL (premix) 20 mEq, intravenous, at 100 mL/hr, Administer over 60 Minutes, Every 1 hour, First dose on Wed03/12/21 at 1900, For 3 doses, Central Line with Telemetry: 20 mEq per bag over 1 hour each. New 03/12/2021 8:08 PM PEDIATRIC NEUROLOGIST 20 mEq 100 mL/hr New Bag 03/12/2021 6:57 PM PEDIATRIC NEUROLOGIST 20 mEq 100 mL/hr potassium chloride IVPB 20 mEq in New Bag 03/13/2021 3:[address] 20 mEq 100 mL/hr 100 mL (premix) 20 mEq, intravenous, at 100 mL/hr, Administer over 60 Minutes, Every 1 hour, First dose on Wed03/13/21 at 0300, For 2 doses, Central Line with Telemetry: 20 mEq per bag over 1 hour each. New Bag 03/13/2021 2:13 AM PEDIATRIC NEUROLOGIST 20 mEq 100 mL/hr potassium chloride IVPB 20 mEq in New Bag 03/15/2021 8:[address] 20 mEq 100 mL/hr 100 mL (premix) 20 mEq, intravenous, at 100 mL/hr, Administer over 60 Minutes, Every 1 hour, First dose on Wed03/15/21 at 0600, For 4 doses, Central Line with Telemetry: 20 mEq per bag over 1 hour each. New Bag 03/15/2021 7:26 AM PEDIATRIC NEUROLOGIST 20 mEq 100 mL/hr New Bag 03/15/2021 6:28 AM PEDIATRIC NEUROLOGIST 20 mEq 100 mL/hr potassium chloride IVPB [...] Standard Schedule New Bag 03/15/2021 6:08 PM PEDIATRIC NEUROLOGIST 20 mEq 100 mL/hr New Bag 03/15/2021 5:03 PM PEDIATRIC NEUROLOGIST 20 mEq 100 mL/hr potassium chloride IVPB 20 mEq in New Bag 03/16/2021 5:[address] 20 mEq 100 mL/hr 100 mL (premix) 20 mEq, intravenous, at 100 mL/hr, Administer over 60 Minutes, Every 1 hour, First dose on [place] 03/16/21 at 0500, For 1 dose, Central Line with Telemetry: 20 mEq per bag over 1 hour each. potassium chloride packet 40 mEq (KLOR-C ON) Given 03/13/2021 2:13 AM PEDIATRIC NEUROLOGIST 40 mEq 40 mEq, oral, Once, On [place] 03/13/21 at 0215, For 1 dose, Dissolve one packet in 4-5 ounces of water or other beverage prior to administration. potassium phosphate in NaCl Rate/Dose Verify 03/15/2021 7:00 AM PEDIATRIC NEUROLOGIST 83.3 mL/hr 0.9% IVPB 15 mmol 15 mmol, intravenous, at 83.3 mL/hr, Administer over 3 Hours, Once, On 03/15/21 at 0600, For 1 dose New 03/15/2021 6:11 AM PEDIATRIC NEUROLOGIST 15 mmol 83.3 mL/hr potassium phosphate in NaCl Rate/Dose Verify 03/15/2021 8:00 PM PEDIATRIC NEUROLOGIST 83.3 mL/hr 0.9% IVPB 15 mmol 15 mmol (rounded from 13.55 mmol = 0.25 mmol/kg ? 54.2 kg Dosing weight), intravenous, at 83.3 mL/hr, Administer over 3 Hours, Once, On 03/15/21 at 1800, For 1 dose, Monitor the following for replacement: Phosphorus New Bag 03/15/2021 6:17 PM PEDIATRIC NEUROLOGIST 15 mmol 83.3 mL/hr potassium phosphate in NaCl Rate/Dose Verify 03/16/2021 9:00 AM PEDIATRIC NEUROLOGIST 83.3 mL/hr 0.9% IVPB 15 mmol 15 mmol, intravenous, at 83.3 mL/hr, Administer over 3 Hours, Every 3 hours, First dose (after last modification) on Wed03/16/21 at 0500, For 2 doses New Bag 03/16/2021 8:13 AM PEDIATRIC NEUROLOGIST 15 mmol 83.3 mL/hr Rate/Dose Verify 03/16/2021 8:00 AM PEDIATRIC NEUROLOGIST 83.3 mL/hr potassium phosphates 30 mmol in New Bag 03/12/2021 10:50 AM CS T 30 mmol 85 mL/hr NaCl 0.9% IVPB 30 mmol, intravenous, at 85 mL/hr, Administer over 6 Hours, Once, On Wed03/12/21 at 0715, For 1 dose, Peripheral or central line. [id number] 280-160-250 mg Given 2020 9:40 PM PEDIATRIC NEUROLOGIST 2 packets per packet 2 packet (PHOS-NAK) 2 packet, oral, Every 4 hours while awake, First dose on Wed03/19/21 at 1000, For 4 doses, Monitor the following for replacement: Phosphorus Given 03/19/2021 5:57 PM PEDIATRIC NEUROLOGIST 2 packets Given 03/19/2021 3:09 PM PEDIATRIC NEUROLOGIST 2 packets propofoL (DIPRIVAN) 10 mg/mL injection - ADS Override Pull Starting on Wed03/12/21 at 0923, For 1 dose, Created by cabinet override propofol 10 mg/mL Rate/Dose Verify 03/14/2021 6:00 25 mcg/kg/min 8.13 mL/hr infusion (DIPRIVAN) AM PEDIATRIC NEUROLOGIST 5-80 mcg/kg/min ? 54.2 kg Dosing weight (1.626-26.016 mL/hr, rounded to 1.63-26.02 mL/hr), intravenous, Continuous, Starting on Wed03/12/21 at 1100, Type: Titrate, Initiate at: 5 mcg/kg/min., Titrate at: 5 mcg/kg/min. every 5 min., Goal: Other, Goal: RASS -2 Rate/Dose Change 03/14/2021 4:50 AM PEDIATRIC NEUROLOGIST 25 mcg/kg/min 8.13 mL/hr Rate/Dose Verify 03/14/2021 4:00 AM PEDIATRIC NEUROLOGIST 30.012 mcg/kg/min 9.76 mL/h r propofoL injection (DIPRIVAN) Given 03/12/2021 9:45 AM PEDIATRIC NEUROLOGIST 30 mg intravenous, Code/trauma/sedation medication, Starting on Wed03/12/21 at 0945 propofoL injection (DIPRIVAN) Given 03/12/2021 9:46 AM PEDIATRIC NEUROLOGIST 30 mg intravenous, Code/trauma/sedation medication, Starting on Wed03/12/21 at 0946 rifAXIMin tablet 550 mg (XIFAXAN) Given 03/24/2021 8:52 AM PEDIATRIC NEUROLOGIST 550 mg 550 mg, oral, 2 times daily, First dose on [place] 03/13/21 at 0900, Indications: Prophylaxis, medical Given 03/23/2021 9:49 PM PEDIATRIC NEUROLOGIST 550 mg Given 03/23/2021 8:10 AM PEDIATRIC NEUROLOGIST 550 mg rocuronium injection (ZEMURON) Given 03/12/2021 9:45 AM PEDIATRIC NEUROLOGIST 70 mg Code/trauma/sedation medication, Starting on Wed03/12/21 at 0945 sodium bicarbonate tablet 650 mg Given 03/23/2021 8:10 AM PEDIATRIC NEUROLOGIST 650 mg 650 mg, oral, 3 times daily, First dose on Wed03/19/21 at 1400 Given 03/22/2021 10:49 PM PEDIATRIC NEUROLOGIST 650 mg Given 03/22/2021 3:05 PM PEDIATRIC NEUROLOGIST 650 mg sodium bicarbonate tablet 650 mg Given 03/24/2021 8:53 AM PEDIATRIC NEUROLOGIST 650 mg 650 mg, oral, 4 times daily, First dose (after last modification) on 03/23/21 at 1700 Given 03/23/2021 9:49 PM PEDIATRIC NEUROLOGIST 650 mg Given 03/23/2021 5:38 PM PEDIATRIC NEUROLOGIST 650 mg sodium chloride 0.9 % flush 100 mL Given 03/12/2021 1:47 PM PEDIATRIC NEUROLOGIST 100 mL 100 mL, intravenous, Once in imaging, line care, needed for CT, Starting on Wed03/12/21 at 1346, For 1 dose sodium chloride 0.9 % flush 100 mL Given 03/16/2021 2:37 AM PEDIATRIC NEUROLOGIST 100 mL 100 mL, intravenous, Once in imaging, line care, for CT exam, Starting on 03/16/21 at 0230, For 1 dose sodium chloride 0.9 % injection 10 mL Given 03/12/2021 1:46 PM PEDIATRIC NEUROLOGIST 10 mL 10 mL, intravenous, Once in imaging, line care, Starting on Wed03/12/21 at 1346, For 1 dose sodium chloride 0.9 % injection 10 mL Given 03/17/2021 6:48 AM PEDIATRIC NEUROLOGIST 10 mL 10 mL, intravenous, As needed, line care, Central Venous Catheter (CVC) Non-Tunneled Non-Valved, Starting on Wed03/12/21 at 1706, Prior to blood sampling, post blood transfusion or post blood sampling. Given 03/17/2021 12:12 AM PEDIATRIC NEUROLOGIST 10 mL sodium chloride 0.9 % injection 10 mL Given 03/16/2021 2:36 AM PEDIATRIC NEUROLOGIST 10 mL 10 mL, intravenous, Once in [...] injection 5-15 mL Given 03/23/2021 9:51 PM PEDIATRIC NEUROLOGIST 10 mL 5-15 mL, intravenous, Every 12 hours scheduled, First dose on Wed03/12/21 at 2100, Central Venous Catheter (CVC) Non-Tunneled Non-Valved: When no infusion to maintain patency. Flush 5 mL per lumen. Given 03/23/2021 8:10 AM PEDIATRIC NEUROLOGIST 10 mL Given 03/22/2021 10:51 PM PEDIATRIC NEUROLOGIST 10 mL spironolactone tablet 50 mg (ALDACTONE) Given 03/24/2021 8:52 AM PEDIATRIC NEUROLOGIST 50 mg 50 mg, oral, Daily, First dose on [place] 03/20/21 at 0900 Given 03/23/2021 8:10 AM PEDIATRIC NEUROLOGIST 50 mg Given 03/22/2021 10:22 AM PEDIATRIC NEUROLOGIST 50 mg thiamine tablet 100 mg (VITAMIN B1) Given 03/24/2021 8:52 AM PEDIATRIC NEUROLOGIST 100 mg 100 mg, oral, Daily, First dose on [place] 03/13/21 at 1230 Given 03/23/2021 8:10 AM PEDIATRIC NEUROLOGIST 100 mg Given 03/22/2021 10:22 AM PEDIATRIC NEUROLOGIST 100 mg vancomycin 1,000 mg in NaCl [...] mL/hr in NaCl 0.9% 100 mL AM PEDIATRIC NEUROLOGIST infusion (PITRESSIN) 0.04 Units/min (12 mL/hr), intravenous, Continuous, Starting on Wed03/12/21 at 1245 New Bag 03/15/2021 10:06 AM PEDIATRIC NEUROLOGIST 0.04 Units/min 12 mL/hr Rate/Dose Verify 03/15/2021 10:00 AM PEDIATRIC NEUROLOGIST 0.04 Units/min 12 mL/hr documented in this encounter Active and Recently Administered Medications Times are shown in PEDIATRIC NEUROLOGIST. Scheduled Medication Order 03/22/2021 03/23/2021 03/24/2021 ciprofloxacin tablet 500 mg (CIPRO) 0702 (Given - Prov ider: Nola Frederick) 0634 (Given - Provider: Lisa Stinson RSumaNSuma) 0618 (G iven - Provider: Bernardo Rosario R.N.) 500 mg, oral, Daily before breakfast, [...] 1 mg 1022 (Given - Provider: Julissa torres, R.N.) 0810 (Given - Provider: Hope Guerrier [...] (MAG-OX) 0 634 (Given - Provider: Lisa Stinson, RSumaN.)1541 (Given - Provider: Hope Guerrier RSumaN.) 0618 (Given - Provider: Bernardo Rosario R.N.) 400 mg, oral, 2 times daily before break fast and dinner, First dose on 03/23/21 at 0700 magnesium sulfate in water IVPB 2 g (COMPLETED) 1618 ( New Bag - Provider: Carol Rodriguez R.NSuma) 2 g, intravenous, at 25 mL/hr, Administe r over 120 Minutes, Once, On 03/22/21 at 1530, For 1 dose melatonin tablet 6 mg 0048 (Given - Provider: Monica Frederick - Comment: patient requested to wait until later) 0019 (Given - Provider: Lisa Stinson RGabby - Comment: per patient request)2149 (Given - Provider: Bernardo Rosario R.NSuma) 6 mg, oral, Daily at bedtime, First [...] K1) tablet 5 mg (MEPHYTON) (CANC ELED) 1022 (Given - Provider: Julissa Villafuerte [...] R.N.) 0810 (Given - Provider: Hope Guerrier R.N.)214 (Given - Provider: Andrew BaronNSuma) 0852 (Given - Provider: Andrew AndersonNSuma) 550 [...] Guerrier R.N.)214 (Given - Provider: Bernardo Rosario RSumaN.) 0853 (Given - Provider: Andrew AndersonNSuma)1200 (Due) 650 mg, oral, 4 times daily, First dose (after last modification) on Wed03/23/21 at 1700 sodium chloride 0.9 % injection 5-15 mL 1030 (Given - Provider: Julissa Villafuerte R.N.)2251 (Given - Provider: Carol Rodriguez R.N.) 0810 (Given - Provider: Andrew AndersonNSuma)215 (Given - Provider: Bernardo Rosario RSumaNSuma) 0853 [...] COVID19 Pending 03/12/2021 03/12/2021 03/12/2021 7:32 PM PEDIATRIC NEUROLOGIST documented as of this encounter Care Teams Vp Care Management Relationship Specialty Start Date End Date Elsewhere, Pcp PCP - General Family Medicine 03/10/20 11/30/21 Ervin Schroeder MD Referring Provider Family Medicine 03/24/[address] [place] [id number] documented as of this encounter
--- OUTSIDE RECORDS SUMMARY | 2022-02-14 22:15 | XMS_ITS | Encounter Summary ---
:1990 Author Organization [facility] Address [address] [place] [address] Care Team Providers Name Role Phone Elsewhere, [...] you attend yazidi or Patient refused 2021 rastafari services? 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 [address] [place] [phone] Virtual Visit Transplant LuisNew abdular 2 Vik RodriguezBGraeme, Lilian [address] [place] [phone] Office Visit Gastroenterology and QueenieNewar 2 Hepatology Joshua RodriguezBSumaBGraeme, Lilian [address] [place] [address] [phone] Appointment Radiology Matthew Jerome 2 Joshua RodriguezB.BLilian Bedolla [address] [place] [address] [phone] Hospital Gastroenterology and LuisMatthew abdul Cirrhos is Alcoholic (HCC) 2 Encounter Hepatology Joshua RodriguezBSumaBLilian Bedolla [address] [place] [address] [phone] Anesthesia Event Gastroenterology and Rl, 2 Hepatology Ervin Burgos M.D. [address] [place] [address] [phone] Surgery Gastroenterology and Mousa, Matthew ESOPHAG OGASTRODUODENOSCOPY 2 Hepatology Tyrell Rodriguez M.D. [address] [place] [address] [phone] Scheduled Procedures Name Priority Associated Diagnoses Date/Time ESOPHAGOGASTRODUODENOSCOPY Cirrhosis Alc oholic (HCC) 03/20/2022 8:45 AM SPRAY WORKER Hypertension Portal (HCC) documented as of this encounter Procedures Procedure Name Priority Date/Time Associated Diagnosis Comme nts GENERAL SURGERY Routine 03/12/2021 11:00 AM Resul ts for this IMAGE EXAM SPRAY WORKER procedure are i n the results section. 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
--- OUTSIDE RECORDS SUMMARY | 2022-02-14 22:15 | XMS_ITS | Encounter Summary ---
:1990 Author Organization [facility] Address [address] [place] [address] Care Team Providers Name Role Phone Elsewhere, Pcp Primary Care Provider Unavailable Reason for Visit Reason Onset Date Comments Outpatient COVID-19 Testing 03/10/2020 Encounter Details Date Type Department Care Team Description 03/10/2020 External Outreach Department of Pedro Evans Infect ion Upper Internal Medicine in J, D.O. Respiratory (Primary [place], [place] [address] Dx) [address] [place], [place] [phone] Social History Tobacco Use Types Packs/Day Years [...] you attend baptist or Patient refused 2021 rastafari services? 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 - 03/10/2020 3:17 PM CST Encounter created for the drive-through COVID-19 testing. ES OR MULES TEAMSTER documented in this encounter Plan of Treatment Upcoming Encounters Date Type Specialty Care Team Description Telemedicine Transplant 2 Appointment Radiology Matthew Jerome 2 YTyrell, Lilian [address] [place] [phone] Appointment Gastroenterology and Adrianne, 2 Hepatology Yue Burciaga M.D. [address] [place] [phone] Virtual Visit Transplant Matthew Jerome 2 YTyrell, Lilian [address] [place] [address] [phone] Office Visit Gastroenterology and [facility] 2 Hepatology Vik RodriguezBGraeme, Lilian [address] [place] [phone] [facility] 2 Tyrell Rodriguez M.D. [address] [place] [phone] Hospital Gastroenterology and [facility] Cirrhos is Alcoholic (HCC) 2 Encounter Hepatology Tyrell Rodriguez M.D. [address] [place] [phone] Anesthesia Event Gastroenterology and Rl, 2 Hepatology Ervin Burgos M.D. [address] [place] [phone] Surgery Gastroenterology and [facility] ESOPHAG OGASTRODUODENOSCOPY 2 Hepatology Vik RodriguezBLilian Bedolla [address] [place] [phone] Scheduled Procedures Name Priority Associated Diagnoses Date/Time ESOPHAGOGASTRODUODENOSCOPY Cirrhosis Alc oholic (HCC) 03/20/2022 8:45 AM HORSES OR MULES TEAMSTER Hypertension Portal (HCC) documented as of this encounter Procedures Procedure Name Priority Date/Time Associated Diagnosis Comme nts SARS CORONAVIRUS-2 Routine 03/10/2020 4:10 PM Infection Upper Results for this RNA, V HORSES OR MULES TEAMSTER Respiratory procedure are i n the results section. documented in this encounter Results SARS Coronavirus-2 RNA, V Symptomatic (03/10/2020 4:10 PM HORSES OR MULES TEAMSTER) [facility] Method Time Signature SARS-CoV-2 Swab, 03/11/2020 MKTO Specimen Nasopharynx 12:38 PM Source HORSES OR MULES TEAMSTER SARS CoV-2 Undetected Undetected 03/11/2020 MKTO RNA, TMA 12:38 PM HORSES OR MULES TEAMSTER Comment: SARS-CoV-2 RNA absent. This result does not rule out COVID-19 in the patient, as the sensitivity of the test depends o n the timing of the specimen collection and the quality of the specim en. Result should be correlated with patient's history and clinical presentat ion. ----ADDITIONAL INFORMATION---- This test is performed using the Aptima SARS-CoV-2 assay ([employer] which has received Emergency Use Authori zation (EUA) by the U.S. Food and Drug Administration. Fact sheets for this Emergency Use Autho rization (EUA) assay can be found at the following links: For Healthcare Providers: https://www.[employer] a.gov/media/252044/download For Patients: https://www.fda.gov/media/ 892601/download Specimen Anatomical Collection Method Collection Time Receive d Time (Source) Location / / Volume Laterality Varies 03/10/2020 4:10 PM 0 (Nasopharynx) HORSES OR MULES TEAMSTER 11:20 PM HORSES OR MULES TEAMSTER Pedro Evans D.O. LAB MICROBIOLOGY - GENERAL O JANERABLES Performing Organization Address City/State/[facility] Code Phon e Number [facility]- [address] [place] [address] [place] [address] [address] documented in this encounter Visit Diagnoses Diagnosis Infection Upper Respiratory - Primary Cirrhosis Alcoholic (HCC) Cirrhosis Alcoholic (HCC) Hypertension Portal (HCC) documented in this encounter Additional Health Concerns Infection Onset Date Last Indicated Resolved Time COVID19 Pending 03/10/2020 03/10/2020 03/11/2020 12:40 PM HORSES OR MULES TEAMSTER documented as of this encounter Care Teams Ivory Polisher Relationship Specialty Start Date End Date Elsewhere, Pcp PCP - General Family Medicine 03/10/20 11/30/21 documented as of this encounter
--- OUTSIDE RECORDS SUMMARY | 2022-02-14 22:15 | XMS_ITS ---
:1990 Author Organization [facility] Address [address] [place] [address] Care Team Providers Name Role Phone Ana Red P.A.-C. Primary Care Provider Transplant [facility], [place] - MNMCEvaluation began on 09/26/2021Marked as Deferred on 10/16/2021 Liver CoordinatorTXP PRE LIVER NURSE TEAM 2 ROCHPhone: N/AFax: N/AEmail: N/A Scores Score Value Updated Expires Exceptions/Reas ons CPRA Not available UNOS MELD Not available MELD (Calc) 27 02/12/2022 [place] Organ Diagnosis Organ Primary Contributory Liver Alcoholic Cirrhosis Care Team Name Role Phone Fax Email TXP PRE LIVER Liver Coordinator N/A N/A N/A NURSE TEAM 2 DAYRON Vann, Transplant Surgeon [phone] [email or web address] [email or web address] Matthew Jerome, Referring Provider [phone] [email or web address] Lilian Santillan Transplant Manager Line du Events Pre-Transplant Referred: 08/14/2021 Evaluation began: 09/26/2021 Committee: 10/15/2021 Appointments (01/15/2022 - 03/17/2022) When With Description 01/27/2022 TXP Canceled (Patient: H ospitalized / ill) 01/28/2022 TXP Canceled (Patient: H ospitalized / ill) 01/28/2022 LAB Canceled (Clinic: Sc heduling Error) 01/28/2022 [facility] - Queenie, O Canceled (Patient: H ospitalized / ill) 02/10/2022 TXP - Jagdeep Reyes Alcoholic Cirrhosis Of Liver With Ascites (HCC) [K70.31 (ICD-10-CM)] (Primar y Dx) 02/12/2022 Marylou Guerra Canceled (Clinic: Re quest) 02/12/2022 LAB Alcohol Moderate Or Severe Use Disorder (Dependence) Uncomplicated (HCC); Cannabis Use Unspecified Uncomplicated; Moder ate Or Severe Use Disorder (Dependence) Alcohol Remission (HCC); Cirrhosis Alcoholic (HCC); Abnormal Live r Function Test; Ascites; Preanesthetic Medica l Exam 02/12/2022 LAB Cirrhosis Alcoholic (HCC); Thrombocytopenia (HCC); Hypertension Portal (HCC); Deficiency Coagulation Acquired (HCC); Pret ransplant Recipient Evaluation Exam; Abnormal Liver Funct ion Test; Ascites; Preoperative Exam; High Risk Medication ; Moderate Or Severe Use Disorder (Dependence) Alcohol Remission (HCC) 02/12/2022 TXVanessa Zhang 03/03/2022 TXP 03/04/2022 Marylou Guerra
--- OUTSIDE RECORDS SUMMARY | 2022-02-14 22:15 | XMS_ITS | Encounter Summary ---
:1990 Author Organization [facility] Address [address] [place] [address] Care Team Providers Name Role Phone Elsewhere, Pcp Primary Care Provider Unavailable Encounter Details Date Type Department Care Team Description 08/27/2020 Orders Only [facility] Sa yoav Trujillo M.D. [address] [place], [place] [phone] (Wo rk) Social History [...] you attend religious or Patient refused 2021 anabaptism services? Do [...] Appointment Radiology Matthew Jerome 2 YVikBGraeme, Lilian [address] [place] [phone] Appointment Gastroenterology and Adrianne, 2 Hepatology Yue Burciaga M.D. [address] [place] [phone] Virtual Visit Transplant Matthew Jerome 2 Joshua RodriguezBSumaBGraeme, Lilian [address] [place] [phone] Office Visit Gastroenterology and Matthew Jerome 2 Hepatology Joshua RodriguezBSumaBLilian Bedolla [address] [place] [phone] Appointment Radiology Matthew Jerome 2 YJoshuaBSumaBLilian Bedolla [address] [place] [phone] Hospital Gastroenterology and Mousa, Matthew Cirrhos is Alcoholic (HCC) 2 Encounter Hepatology Tyrell Rodriguez M.D. [address] [place] [address] [phone] Anesthesia Event Gastroenterology and Rl, 2 Hepatology Ervin Burgos M.D. [address] [place] [address] [phone] Surgery Gastroenterology and Mousa, Matthew ESOPHAG OGASTRODUODENOSCOPY 2 Hepatology Tyrell Rodriguez M.D. 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
--- OUTSIDE RECORDS SUMMARY | 2022-02-14 22:16 | XMS_ITS | Encounter Summary ---
:1990 Author Organization [facility] Address [address] [place] [address] Phone Care Team Providers Name Role Phone Unavailable Primary Care Provider Unavailable Reason for Visit Reason Comments Abdominal Pain Encounter Details Date Type Department Care Team Description 07/08/2021 Emergency [facility] Emergency Daniel Doe, Ascites due to Department alcoholic hepatitis [address] [facility] [address] [place], [place] [id number] Social History Tobacco Use Types Packs/Day Years Used Date Smoking Tobacco: Never Assessed Sex Assigned at Date Recorded Not on file COVID-19 Exposure Response Date Recorded In the last 10 days, have you been in contact with No / Unsu re 07/08/2021 9:38 AM TRANSIT SURVEY WORKER someone who was confirmed or suspected to have Coronavirus/COVID-19? documented as of this encounter Last Filed Vital Signs Vital Sign Reading Time Taken Comments Blood Pressure 114/67 07/08/2021 4:03 PM TRANSIT SURVEY WORKER Pulse 82 07/08/2021 4:03 PM TRANSIT SURVEY WORKER Temperature 36.9 ??C (98.5 ??F) 07/08/2021 6:31 AM TRANSIT SURVEY WORKER Respiratory Rate 16 07/08/2021 4:03 PM TRANSIT SURVEY WORKER Oxygen Saturation 98% 07/08/2021 4:03 PM TRANSIT SURVEY WORKER Inhaled Oxygen Concentration - - Weight - [...] was a pleasure caring for you today! SIT SURVEY WORKER AttachmentsThe following attachments cannot be sent through Care Everywhere. Fluid in the Belly (Ascites) Discharge Instructions (Moldovan)documented in this encounter Medications at Time of [...] documented as of this encounter Consult Notes Erivn Childs MD - 07/08/2021 4:19 PM CST MEDICINE CONSULT ?? Catia Carias : 1990 Sex: female ?? Patient Summary: Catia Carias is a 30 y.o. female with past medical history of alcoholic cirrhosis who was transferred to [facility] ED on 07/08/21 from [place] ED with pain and altered mental status. [...] who has known her for many years. PIPE LINE INSPECTOR shows that she most recently filled this on 06/19/21. Patient would also strongly prefer that we prescribe her something for insomnia (something other than melatonin). Do not plan on prescribing pharmacotherapyfor insomnia at this time consider recent altered mental status and complexity of her medical history. Recommended she discuss this further with her PCP and/or integrated circuit design engineer. ?? Ervin Childs MD, 07/08/2021 4:19 [...] doesn't usually do. She usually lives in [place] with her boyfriend. Patient stated her mom [...] who has known her for many years. PIPE LINE INSPECTOR shows that she most recently filled this [...] Psychosocial History: Lives with her boyfriend in [place], [place]. Denies alcohol use. Denies illicit drug [...] ?? Ervin Childs MD 07/08/2021 15:54 ?? 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 Patient reports [...] 07/08/2021 2:57 PM Emergency Medicine Resident PGY-1 SIT SURVEY WORKER Grazyna Delgadillo RN - 07/08/2021 1:19 PM CST Initial Utilization review screening completed. Patient appears to be appropriate for INPATIENT based on ammonia 110 I spoke with provider regarding inpt vs obs, advising obs appropriate, order to remain obs Final order/decision will be based upon provider's assessment of patient. Grazyna Delgadillo ED RN Clinical Coordinator Pager: [phone] [employer] SIT SURVEY WORKER Evon Claros RN - 07/08/2021 1:07 PM CST ED to IP Nursing Handoff Note S (Situation) Reason for Admission: 1. Ascites due to alcoholic hepatitis [facility] Prec[facility]/Isolation: Standard Suspected Infection/Sepsis: No Restraints: [...] NA RN: Evon Claros RN Extension #: [id number] Daniel Larsen - 07/08/2021 12:04 PM CST Parris Knight, patient's mother, would like an update of her daughters condition. Daniel Guerrero MD - 07/08/2021 7:33 AM CST ED Faculty Attestation and Note Catia Carias 30 y.o. female [id number] FACULTY ATTESTATION I Hiro Doe MD, performed [...] the hospitalist. Their care was signed out [id number] with the oncoming provider Dr. Lindsay. Final Clinical Impression Abdominal pain, unclear etiology Disposition and Plan Final disposition to be determined by oncoming provider Currently planning for admission to [facility] Jessica Moyer MD, 07/08/2021 7:13 AM Emergency Medicine Resident PGY-1 SIT SURVEY WORKER Analilia Espitia RN - 07/08/2021 7:09 AM CST Pt transferred here from [facility] due to liver failure. Pt has been to multiple EDs in the last few days after running out of pain medication. 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 ULT GALLBLADDER Routine 07/08/2021 12:13 Results for this PM TRANSIT SURVEY WORKER procedure are i n the results section. ED US STAT 07/08/2021 10:30 Results for this ABDOMINAL/GALLBLADDER AM TRANSIT SURVEY WORKER proced ure are in the results section. EXTRA TUBE - LAVENDER Routine 07/08/2021 7:28 AM Results for this TRANSIT SURVEY WORKER procedure are i n the results section. PC FREE STANDING Routine 07/08/2021 7:28 AM Resul ts for this BLOOD DRAW BY TRANSIT SURVEY WORKER procedure are in VENIPUNCTURE the results section. PC FREE STANDING Routine 07/08/2021 7:28 AM Resul ts for this BLOOD DRAW BY TRANSIT SURVEY WORKER procedure are in VENIPUNCTURE the results section. PC ELECTROLYTES PANEL STAT 07/08/2021 7:27 AM Results for this TRANSIT SURVEY WORKER procedure are i n the results section. TC LAB ER STAT STAT 07/08/2021 7:27 AM Results for this URINALYSIS TRANSIT SURVEY WORKER procedure are i n the results section. PROTHROMBIN (PT) & STAT 07/08/2021 7:27 AM Res ults for this INR TRANSIT SURVEY WORKER procedure are i n the results section. PC LAB TEST Routine 07/08/2021 7:27 AM Results for this TRANSIT SURVEY WORKER procedure are i n the results section. PC AMMONIA STAT 07/08/2021 7:27 AM Results f or this TRANSIT SURVEY WORKER procedure are i n the results section. LIPASE STAT 07/08/2021 7:27 AM Results f or this TRANSIT SURVEY WORKER procedure are i n the results section. PANEL HEPATIC STAT 07/08/2021 7:27 AM Results for this FUNCTION TRANSIT SURVEY WORKER procedure are i n the results section. documented in this encounter Results COVID-19 SURVEILLANCE (07/08/2021 1:32 PM TRANSIT SURVEY WORKER) [facility] Method Time Signature COVID-19 Not Detected Not Detected [facility] Comment: This test was developed and its performa nce characteristics determined by [employer]. This testing, RT-PCR, has been authorized by [...] Laterality Nasopharyngeal Swab 07/08/2021 1:32 07/08 PM TRANSIT SURVEY WORKER 1:40 PM TRANSIT SURVEY WORKER Narrative [facility] - 07/08/2021 2:11 PM TRANSIT SURVEY WORKER Is the patient a healthcare employee: No Is the patient a [facility]) Employee : No Daniel Doe MD LABORATORY Performing Organization Address City/State/ZIP Code Phon e Number [facility] [place] [address] GALLBLADDER (07/08/2021 12:13 PM TRANSIT SURVEY WORKER) Anatomical Region Laterality Modality Abdomen Ultrasound Specimen (Source) Anatomical Collection Method Collection Time Re ceived Time Location / / Volume Laterality 07/08/2021 12:53 PM TRANSIT SURVEY WORKER Impressions 07/08/2021 1:17 PM TRANSIT SURVEY WORKER Impression: Biliary sludge without shadowing gallstones. No sonographic findings to suggest acute cholecystitis. I have personally reviewed the image(s) and initial interpretation, and I agree with the findings as documented by the resident/fellow. Reading Radiologist: Daron Mccurdy Reading Resident: Gerard Webb Narrative 07/08/2021 1:17 PM TRANSIT SURVEY WORKER Indication: sludge on ED u/s, chronic abd [...] ULT ED US ABDOMINAL/GALLBLADDER (07/08/2021 10:30 AM TRANSIT SURVEY WORKER) Anatomical Region Laterality Modality Ultrasound Specimen (Source) Anatomical Location Collection Method / Collectio n Time Received Time / Laterality Volume Narrative 07/08/2021 1:12 PM TRANSIT SURVEY WORKER ED Abdomen/Gallbladder Ultrasound Indications: Abdominal pain Window: [...] CBC WITH PLTS/AUTO DIFF (07/08/2021 7:28 AM TRANSIT SURVEY WORKER) [facility] Method Time Signature WBC 5.29 4.00 - [facility] 10.00 k/cmm RBC 1.93 (L) 3.90 - [facility] 5.20 m/cmm Hgb 7.0 (AA) 11.5 - [facility] 15.7 g/dL Hematocrit 21.2 (L) 34.0 - [facility] 45.0 % MCV 109.8 (H) 80.0 - [facility] 100.0 fL MCH 36.3 (H) 25.0 - [facility] 32.0 pg MCHC 33.0 31.0 - [facility] 36.0 g/dL RDW 13.7 11.5 - [facility] 14.5 % Plt 74 (L) 150 - 400 [facility] k/cmm MPV 9.7 6.5 - 12.5 [facility] fL Automated Abs 3.54 1.70 - [facility] Neutrophil 6.50 k/cmm Comment: Preliminary ANC, Final Result t o Follow Abs Immature Granulocyte 0.01 0.00 - 0.09 k/cmm [facility] Comment: The Immature Granulocyte Absolu te count contains metamyelocytes and myelocytes. Abs Neutrophil 3.54 1.70 - 6.50 k/cmm [facility] LA B Abs Lymphocyte 1.21 0.80 - 4.00 k/cmm [facility] LA B Abs Monocyte 0.40 0.20 - 1.00 k/cmm [facility] Abs Eosinophil 0.10 0.00 - 0.60 k/cmm [facility] LA B Abs Basophil 0.03 0.00 - 0.20 k/cmm [facility] Orin Cell Slight [facility] Specimen Anatomical Collection Method Collection Time Receive d Time (Source) Location / / Volume Laterality Blood 07/08/2021 7:28 AM 9:32 TRANSIT SURVEY WORKER AM TRANSIT SURVEY WORKER Narrative [facility] - 07/08/2021 10:29 AM TRANSIT SURVEY WORKER Critical value for Hgb called to and julisa d back by Charly Bowman RN in ER A at 07/08/2021 10:29:44 TRANSIT SURVEY WORKER by Ines Bal Lance . Daniel Doe MD LABORATORY Performing Organization Address City/State/ZIP Code Phon e Number [facility] [place] [address] EXTRA TUBE - LAVENDER (07/08/2021 7:28 AM TRANSIT SURVEY WORKER) athologist Signature LAVENDER TUBE Stored [facility] Comment: Lavendar (EDTA) tubes collected at [facility] are stored for 3 days from the collection date. Specimen Anatomical Collection Method Collection Time Receive d Time (Source) Location / / Volume Laterality Blood 07/08/2021 7:28 AM 2 7:35 TRANSIT SURVEY WORKER AM TRANSIT SURVEY WORKER Narrative [facility] - 07/08/2021 7:35 AM TRANSIT SURVEY WORKER Ordered by ~[id number] Provider Unknown LABORATORY Performing Organization Address City/[facility]/ZIP Code Phon e Number [facility] [place] [address] EXTRA TUBE - SST (07/08/2021 7:28 AM TRANSIT SURVEY WORKER) athologist Signature SST TUBE Stored [facility] Comment: SST tubes (Serum Separator) are stored in the lab for 3 days from the collection date. Specimen Anatomical Collection Method Collection Time Receive d Time (Source) Location / / Volume Laterality Blood 07/08/2021 7:28 AM 2 7:35 TRANSIT SURVEY WORKER AM TRANSIT SURVEY WORKER Narrative [facility] - 07/08/2021 7:35 AM TRANSIT SURVEY WORKER Ordered by ~[id number] Provider Unknown LABORATORY Performing Organization Address City/[facility] Phon e Number [facility] [place] [address] TEST URINE (07/08/2021 7:27 AM TRANSIT SURVEY WORKER) athologist Signature Ur Negative Negative [facility] UPT performed [facility] at Comment: Test performed by: [facility] ED Clinical Laboratory [id number] [place] [id number] Specimen Anatomical Collection Method Collection Time Receive d Time (Source) Location / / Volume Laterality Urine 07/08/2021 7:27 AM 2 TRANSIT SURVEY WORKER 10:53 AM TRANSIT SURVEY WORKER Daniel Doe MD LABORATORY Performing Organization Address City/[facility]/ZIP [facility] Phon e Number [facility] [place] [address] (ABNORMAL) URINALYSIS,TOTAL (07/08/2021 7:27 AM TRANSIT SURVEY WORKER) [facility] gist Method Time Signature Color YELLOW YELLOW [facility] Appearance CLEAR CLEAR [facility] Urine Glucose NEGATIVE NEGATIVE [facility] mg/dL Bili UA TRACE (A) NEGATIVE [facility] Ketones NEGATIVE NEGATIVE [facility] mg/dL Specific Trufant 1.024 1.003 - [facility] 1.030 Blood Ur NEGATIVE Neg-Trace [facility] PH Urine 6.5 5.0 - 7.0 [facility] Protein Ur TRACE Neg-Trace [facility] mg/dL Urobilinogen NORMAL NORMAL EU/dL [facility] Nitrite Ur NEGATIVE NEGATIVE [facility] Leuk Est NEGATIVE Neg-Trace [facility] WBC Ur 0-5 0 - 5 perHPF [facility] RBC Ur 0-3 0 - 3 perHPF [facility] SQ EPITH 0-5 0 - 5 perHPF [facility] Mucus 1+ perLPF [facility] Urinalysis [facility] Performed at: Specimen Anatomical Collection Method Collection Time Receive d Time (Source) Location / / Volume Laterality Urine 07/08/2021 7:27 AM 2 8:09 TRANSIT SURVEY WORKER AM TRANSIT SURVEY WORKER Karina Israel MD LABORATORY Performing Organization Address City/[facility] Phon e Number [facility] [place] [address] (ABNORMAL) PROTHROMBIN (PT) & INR (07/08/2021 7:27 AM TRANSIT SURVEY WORKER) athologist Signature PT 39.2 (H) 9.0 - 12.5 [facility] sec INR 3.3 (H) 0.8 - 1.1 [facility] Specimen Anatomical Collection Method Collection Time Receive d Time (Source) Location / / Volume Laterality Blood 07/08/2021 7:27 AM 2 7:47 TRANSIT SURVEY WORKER AM TRANSIT SURVEY WORKER Karina Israel MD LABORATORY Performing Organization Address City/[facility]/ZIP Code Phon e Number [facility] [place] [address] (ABNORMAL) AMMONIA (07/08/2021 7:27 AM TRANSIT SURVEY WORKER) P athologist Signature Ammonia 110 (H) 11 - 51 [facility] mcmol/L Specimen Anatomical Collection Method Collection Time Receive d Time (Source) Location / / Volume Laterality Blood 07/08/2021 7:27 AM 2 7:53 TRANSIT SURVEY WORKER AM TRANSIT SURVEY WORKER Narrative [facility] - 07/08/2021 8:18 AM TRANSIT SURVEY WORKER Send specimen on ice! Karina Israel MD LABORATORY Performing Organization Address City/State/ZIP Code [place] [address] LIPASE (07/08/2021 7:27 AM TRANSIT SURVEY WORKER) P athologist Signature Lipase 14 13 - 60 IU/L [facility] Specimen Anatomical Collection Method Collection Time Receive d Time (Source) Location / / Volume Laterality Blood 07/08/2021 7:27 AM 7:47 TRANSIT SURVEY WORKER AM TRANSIT SURVEY WORKER Karina Israel MD LABORATORY Performing Organization Address City/State/ZIP Code [place] [address] (ABNORMAL) PANEL HEPATIC FUNCTION (07/08/2021 7:27 AM TRANSIT SURVEY WORKER) P athologist Signature Total Protein 5.3 (L) 6.4 - 8.3 [facility] g/dL Albumin 3.0 (L) 3.8 - 5.1 [facility] g/dL Bili Total 7.1 (H) 0.1 - 1.2 [facility] mg/dL Bili Direct 2.8 (H) 0.0 - 0.3 [facility] mg/dL Alk Phos 150 (H) 35 - 104 [facility] IU/L ALT (SGPT) 18 <=33 IU/L [facility] AST(SGOT) 47 (H) 5 - 40 [facility] IU/L Specimen Anatomical Collection Method Collection Time Receive d Time (Source) Location / / Volume Laterality Blood 07/08/2021 7:27 AM 7:47 TRANSIT SURVEY WORKER AM TRANSIT SURVEY WORKER Karina Israel MD LABORATORY Performing Organization Address City/State/ZIP Code [place] [address] (ABNORMAL) ED CHEMISTRY LABS(NA,K,CL,CO2,GLU,CREAT,CA-IONIZED,ANION GAP) (07/08/2021 7:27 AM TRANSIT SURVEY WORKER) Analysis Performed At Patho logist Time Signature Sodium 140 135 - 148 [facility] mEq/L Chloride 111 (H) 92 - 108 [facility] mEq/L AnGap 7 (L) 8 - 16 [facility] mEq/L Glucose 83 70 - 100 [facility] mg/dL ICA, Actual 4.34 (L) 4.40 - [facility] 5.20 mg/dL ICA, pH 4.51 4.40 - [facility] Corrected 5.20 mg/dL Creatinine 0.67 0.50 - [facility] 1.00 mg/dL BICARB 22 22 - 26 [facility] mEq/L eGFR, High >120 >=60 [facility] ml/min/1.7 3m2 Comment: Calculated using CKD-EPI equati on eGFR, Low 118 >=60 ml/min/1.73m2 [facility] Comment: Calculated using CKD-EPI equati on Potassium 4.0 3.5 - 5.3 mEq/L [facility] Specimen Anatomical Collection Method Collection Time Receive d Time (Source) Location / / Volume Laterality Blood 07/08/2021 7:27 AM 7:36 TRANSIT SURVEY WORKER AM TRANSIT SURVEY WORKER Karina Israel MD LABORATORY Performing Organization Address City/State/ZIP Code Phon e Number [facility] [place] [address] documented in this encounter Visit Diagnoses Diagnosis Ascites due to alcoholic hepatitis - [facility] documented in this encounter Administered Medications Inactive Administered Medications - up to 3 most recent administrations Medication Order MAR Action Action Date Dose Rate Site cefTRIAXone (ROCEPHIN) 1 g in New Bag 07/08/2021 1:32 PM TRANSIT SURVEY WORKER 1 g 200 mL/hr NaCl 0.9% 100 mL IVPB 1 g, Indication (Select One): Infection - Suspected, SITE (Select all that apply): GI/Intra-abdominal, Cultures Ordered? No, Intravenous, ONE TIME, 1 dose, On Wed07/08/21 at 1305 HYDROmorphone PF (DILAUDID) 1 mg/mL injection Given 4:43 PM TRANSIT SURVEY WORKER 0.5 mg 0.5 mg 0.5 mg, IV Push, ONE TIME, 1 dose, On Wed07/08/21 at 1640 lactulose (KRISTALOSE) package 20 g Given 07/08/2021 3:33 PM TRANSIT SURVEY WORKER 20 g 20 g, Oral, TID, First dose on Wed07/08/21 at 1450, Until Discontinued oxyCODONE (ROXICODONE) tablet 5 mg Given 07/08/2021 10:39 AM TRANSIT SURVEY WORKER 5 mg 5 mg, Oral, ONE TIME, 1 dose, On Wed07/08/21 at 1030 documented in this encounter Active and Recently Administered Medications Times are shown in TRANSIT SURVEY WORKER. Scheduled Medication Order 07/06/2021 07/07/2021 07/08/2021 cefTRIAXone [...]
--- OUTSIDE RECORDS SUMMARY | 2022-02-14 22:16 | XMS_ITS | Encounter Summary ---
:[address] [facility] Address [address] [place] [address] Care Team Providers Name Role Phone [facility], [facility] Primary Care Provider [phone] [facility] Unavailable [phone] Reason for Referral (Routine) - Closed Specialty Diagnoses / Procedures Referred By Contact Refer red To Contact Procedures Gonzalo Tavera MD Return to previous diet [address] [place], [place] [address] Referral ID Status Reason Start Date Expiration Date Visits Requ ested Visits Authorized [id number] Closed 10/02/2018 10/02/2019 1 1 (Routine) - Closed Specialty Diagnoses / Procedures Referred By Contact Refer red To Contact Procedures Gonzalo Tavera MD Normal activity as tolerated [address] [place], [place] [address] Referral ID Status Reason Start Date Expiration Date Visits Requ ested Visits Authorized [id number] Closed 10/02/2018 10/02/2019 1 1 (Routine) - Closed Specialty Diagnoses / Procedures Referred By Contact Refer red To Contact Gonzalo Tavera MD [facility], [facility] [address] [place], [place] [id number] [address] [place] [address] Fax: Referral ID Status Reason Start Date Expiration Date Visits Requ ested Visits Authorized [id number] Closed 10/02/2018 10/02/2019 1 1 Question Answer Specify time frame for follow up? 1 Week (Routine) - Closed Specialty Diagnoses / Procedures Referred By Contact Refer red To Contact Procedures Gonzalo [facility]avera MD [facility] [place] [address] Referral ID Status Reason Start Date Expiration Date Visits Requ ested Visits Authorized [id number] Closed 10/02/2018 10/02/2019 1 1 Reason for Visit Inpatient Admission Specialty Diagnoses / Procedures Referred By Contact Refer red To Contact Diagnoses Acute hepatitis Hepatitis, Acute Referral ID Status Reason Start Date Expiration Date Visits Requ ested Visits Authorized [id number] 1 1 Encounter Details Date Type Department Care Team Description 09/30/2018 - Hospital Encounter W2 Hm-Hospitalist [facility] [place] [address] Acute hepatitis 10/02/[address] [place] [address] Gonzalo Tavera MD [facility] [place] [address] [place] [address] Social History Tobacco Use Types Packs/Day Years [...] Tavera MD - 10/02/2018 12:02 PM CDT [facility] ([facility]) HOSPITAL DISCHARGE SUMMARY Patient Name: Catia Carias Date of : 1990 Admission Date: 09/30/2018 Discharge Date: 10/02/2018 She will be discharged to home. Primary care: [facility] Consultants: 1. Gastroenterology 2. Orthopedics DISCHARGE [...] to Excess Tylenol Use:??Presented as direct admission[address] in [place]??with??abdominal pain and vomiting??x 2??days. ??She had been [...] open reduction internal fixation on 08/29/[address]??Dr[address] Omar Rodriguez. ??Has been having [...] Up Referral Priority: Routine Referred to Provider: [facility] Number of Visits Requested: 1 [...] Tavera MD, Hospitalist Internal Medicine and Pediatrics [facility] Medicine Time: over 30 minutes [...] live longer. For further assistanceplease call the [employer] Helpline at [phone] or go to their website [email or web address].[email or web address]. documented in this encounter Medications at Time [...] 10/02/2018 12:02 PM CDT Catia Carias 1990 [id number] P: Discharge A: Discharged ambulatory to home at 1145 escorted by self I: Discharge information and arrangements included: review of written discharge instructions, belongings list completed. R:Patient expressed understanding of information.. Andreas Paul RN - 10/02/2018 3:52 AM CDT Med-Surg Care Progression Note Type: Shift to shift summary [id number] Length of stay: 2 days Code Status: [...] with questions or concerns. Criselda Coker MD [facility] [phone] Evi Londono RN - 10/01/2018 12:22 PM [...] Tavera MD - 10/01/2018 10:32 AM CDT [facility]) PROGRESS NOTE CHIEF COMPLAINT: Arm pain [...] Tylenol Use: Presented as direct admission from [address] in [place] with abdominal pain and vomiting x 2 [...] open reduction internal fixation on 08/29/[address] Omar Rodriguez. Has been [...] pain remains uncontrolled may need to consider SENIOR SALES ASSISTANT. Consulted Orthopedics for assistance with management. Defer further imaging to Orthopedics. I'm worried about progressive or new ulnar nerve impingement or damage. Will start gabapentin 300 mg TID. 3. Recent Pancreatitis: Was admitted at [address] in [place] 09/08/2018 - 09/11/2018 for pancreatitis. Etiology was [...] Tavera MD, Hospitalist Internal Medicine and Pediatrics [facility] Medicine Pager: [phone] SKIN: Surgical Incision Left;Posterior Elbow (Active) No [...] DVT/Anticoagulation Progression: Not applicable Pt comes from [facility] d/t tylenol overdose occurring because of pt [...] to call for help, name of assigned health care specialist, initialphysician orders, hourly rounding procedures, belongings checklist, [...] stability. The patient is direct admission from [facility] with acute hepatitis likely due to excess [...] 11:00 AM on . Per labs from [facility] LFTs are elevated reveals ALt of 624, AST of 3,955, and ALKP of 186. Total bilirubin is 1.2. Creatinine is 0.56, sodium is 136, HCO3 of 16, and potassium 4.5. INR is 1.5. Acetaminophem level is < 3. Lipase is 78.5. Serum test is negative. Lactic acid level is 2.9. Suspect livery dysfunction is contributing lactic acidosis at outside facility. [facility] Physician discussed case w/ GI Physician Dr. Davis who recommended pt be transferred [facility] as direct admission and be started on [...] far since being started on it at [facility] in conjuction with staff development educator and Pharmacist. Has received initial bag of [...] 09/30/2018 3:39 AM CDT Received report from [facility] in [place]. 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 LFT's: AST 3955 ALT 624 Alk Phos 186 Lactate 2.9 Pt received 1 liter LR in the ED and the N-acetyl cysteine was started. First dosing was 87138 mg in200 ml, completed in the ED, and 3380mg in 500 ml was initiated before transport. documented in this encounter H&P Notes Gonzalo Tavera MD - 09/30/2018 9:58 AM CDT [facility]) ADMISSION HISTORY AND PHYSICAL Patient Name: Ctaia Carias Address: [address] [place] [address] Age: 28 y.o. Sex: Female Admission Date/Time: 09/30/2018 4:11 AM Primary Care Provider: [facility] Admitting provider: [facility]-Hospitalist, Dr. Gonzalo Tavera Informant: patient as [...] open reduction internal fixation on 08/29/[address] Catia states that she was discharged [...] Oxycodone. Catia ended up being admitted at [address] 09/08/18 - 09/11/18 for acute pancreatitis which initially required Morphine SENIOR SALES ASSISTANT for pain c ontrol. Catia followed up [...] vomited 6 times therefore she went to [place] [address] emergency department to be evaluated. Mario Alberto kang states that she only has abdominal pain when she is vomiting. She vomited multiple times in the emergency department. She was transferred to [facility] for further evaluation by Gastroenterology [...] file Gets together: Not on file Attends jehovah's witness service: Not on file Active member of [...] Tylenol Use: Presented as direct admission from [address] in [place] with abdominal pain and vomiting x 2 [...] open reduction internal fixation on 08/29/[address] Omar Rodriguez. Has been having uncontrolled neuropathic pain which has not responded to Gabapentin. Pain has minimally improved prior to admission with Percocet or Oxycodone. Treating pain with PRN IV Morphine. If pain remains uncontrolled may need to consider SENIOR SALES ASSISTANT. Consulted Orthopedics for assistance with management. Defer further imaging to Orthopedics. I'm worried about progressive or new ulnar nerve impingement or damage. Will start gabapentin 300 mg TID. 3. Recent Pancreatitis: Was admitted at [address] in [place] 09/08/2018 - 09/11/2018 for pancreatitis. Etiology was [...] our joint decision making. Kimberly Rosas PA-C [facility] Medicine Service Pager: [phone] ADDENDUM: Chart reviewed. Patient seen and examined [...] Tavera MD, Hospitalist Internal Medicine and Pediatrics [facility] Medicine Pager: [phone] documented in this encounter Consult Notes Xuan Block, POISER BALANCE, KINESIOLOGY PROFESSOR - 09/30/2018 2:24 PM CDTAssociated Order(s): CONSULT ORTHOPEDIC SURGERY ORTHOPEDIC CONSULT CHIEF COMPLAINT: left arm nerve pain HISTORY of PRESENT ILLNESS: Catia Carias is a 28 y.o. year old female who had an orif of her left distal humerus in [place] on 08/29/18. She has had 2 f/u [...] Discussed with Hospital medicine. Xuan Block, YARITZA, KINESIOLOGY PROFESSOR Felicita Dia PA-C - 09/30/2018 10:19 AM CDTAssociated Order(s): CONSULT GASTROENTEROLOGY Images from the original note were not included. GI CONSULT SERVICE CONSULT NOTE Patient Name: Catia Carias Admission Date/Time: 09/30/2018 4:11 AM [facility]: Dr. Conrad [facility] Attending Physician: Mele-Hospitalist I was asked to see this patient at the request of Dr. Conrad for evaluation of acute hepatitis. REASON FOR CONSULTATION: Acute hepatitis CC: abdominal pain, nausea and vomiting HISTORY OF PRESENT ILLNESS: 28 y.o. female with a history of ORIF of left upper extremity and acute pancreatitis of unclear etiology 10 days postop who directly admitted from [facility] ED with acute hepatitis on 09/30/2018. [...] several times a week. She presented to [facility] ED 09/29 with 2 3 days of [...] on NAC protocol. She was transferred to [facility]. PAST MEDICAL HISTORY: Past Medical History: [...] will continue to follow. Felicita Dia PA-C [facility] Dig[facility] Pager: Interneer Weekends and after 5 p.m., call [phone] documented in this encounter Nursing Notes Jyoti [...] d/c. Should d/c needs arise, please page/call Stock Sheets Cleaner Inspector to update. Care management is available should further needs arise. Barriers to discharge: Medical stability Care management will continue to follow. Ivet Bob RN Case Manager 2W Observation Unit Pager: [phone] documented in this encounter Miscellaneous Notes Result Encounter Note - Sammy Mack PA-C - 10/02/2018 12:02 PM CDT SAMMY Screen positive. Forwarded to Dr. Tavera. Sammy Mack PA-C [facility] Medicine Service Pager: [phone] Med Reconciliation - Emperatriz Corral - 09/30/2018 1:52 PM CDT PHARMACY MEDICATION RECONCILIATION NOTE MEDICATION RECONCILIATION on admission by pharmacy has been completed. Prior to admission medications were reviewed with patient and [facility] presciption refill information. The ECOLOGICAL ECONOMIST medication list has been updated and reflected in the chart below. Please use the ECOLOGICAL ECONOMIST medication section for ordering home doses during admission. Medication related issues including pertinent changes made to the ECOLOGICAL ECONOMIST list by pharmacy: (discrepancies, interactions, additions, removal, [...] care of this patient. Emperatriz Corral Phone #:[phone] or [phone] Time spent reconciling meds:20 min documented in [...] PROTIME 12.9 10.0 - 13.0 10/02/2018 [facility] sec. 8:58 AM CDT HEALTH LABORATORY INR 1.2 1.0 - 1.2 10/02/2018 [facility] 8:58 AM CDT [facility] LABORATORY Specimen Anatomical Collection Method Collection Time Receive d Time (Source) Location / / Volume Laterality Blood 10/02/2018 8:23 AM 9 8:40 CDT AM CDT Kimberly Rosas PA-C COAGULATION ORDERABLE Performing Organization Address City/[facility]/ZIP Code Phon e Number [facility] [address] [place] [address] LABORATORY Smooth Muscle Antibody (10/02/2018 8:22 AM CDT) [facility] Method Time Signature Smooth Muscle Negative Negative 10/04/2018 [facility] Screen 10:17 AM CDT LABORATORIES Comment: ADDITIONAL INFORMATIO N This test was developed and its performa nce characteristics determined by [facility] in a manner co nsistent with CLIA requirements. This test has not been norah ared or approved by the U.S. Food and Drug Administration. Test Performed by: [facility] [address] [place], [place] [address] Specimen Anatomical Collection Method Collection Time Receive d Time (Source) Location / / Volume Laterality Blood 10/02/2018 8:22 AM 9 8:39 CDT AM CDT Criselda Coker MD SEND OUT ORDERABLE Performing Organization Address City/[facility]/ZIP Code Phon e Number [facility] [employer] [address] [place] [address] (ABNORMAL) CBC- Daily AM (10/02/2018 8:22 AM CDT)Only the most recent of2 resultswithin the time period is included. [facility] Method Time Signature WBC 7.5 4.3 - 10.8 10/02/2018 [facility] K/uL 8:45 AM CDT HEALTH LABORATORY RBC 3.77 (L) 4.20 - 10/02/2018 [facility] 5.40 M/uL 8:45 AM CDT HEALTH LABORATORY HEMOGLOBIN 13.0 12.0 - 10/02/2018 [facility] 16.0 gm/dL 8:45 AM CDT HEALTH LABORATORY HEMATOCRIT 39.2 36.0 - 10/02/2018 [facility] 48.0 % 8:45 AM CDT HEALTH LABORATORY MCV 104 (H) 80 - 100 10/02/2018 [facility] fl 8:45 AM CDT HEALTH LABORATORY MCH 35 (H) 27 - 33 pg 10/02/2018 [facility] 8:45 AM CDT HEALTH LABORATORY MCHC 33 33 - 36 10/02/2018 [facility] gm/dL 8:45 AM T HEALTH LABORATORY RDW 13.3 11.5 - 10/02/2018 [facility] 14.5 % 8:45 AM CDT HEALTH LABORATORY PLATELET COUNT 218 150 - 400 10/02/2018 [facility] K/UL 8:45 AM [facility] HEALTH LABORATORY MPV 10.3 6.5 - 12 10/02/2018 [facility] 8:45 AM T HEALTH LABORATORY Specimen Anatomical Collection Method Collection Time Receive d Time (Source) Location / / Volume Laterality Blood 10/02/2018 8:22 AM 9 8:41 CDT AM CDT Marli Girard RN HEMATOLOGY ORDERABLE Performing Organization Address City/State/ZIP Code Phon e Number [facility] [address] [place] [address] LABORATORY Lipase (10/02/2018 8:22 AM CDT)Only the most recent of3 resultswithin the time period is included. P athologist Signature LIPASE 221 73 - 350 10/02/2018 [facility] IU/L 9:06 AM CDT HEALTH LABORATORY Specimen Anatomical Collection Method Collection Time Receive d Time (Source) Location / / Volume Laterality Blood 10/02/2018 8:22 AM 9 8:40 CDT AM CDT Kimberly Rosas PA-C CHEMISTRY ORDERABLE Performing Organization Address City/State/ZIP Code Phon e Number [facility] [address] [place] [address] LABORATORY (ABNORMAL) Basic Metabolic Profile Daily AM (10/02/2018 8:22 AM CDT)Only the most recent of4 resultswithin the time period is included. [facility] Method Time Signature SODIUM 140 136 - 145 10/02/2018 [facility] mmol/L 9:18 AM [facility] LABORATORY POTASSIUM 4.1 3.5 - 5.1 10/02/2018 [facility] mmol/L 9:18 AM [facility] LABORATORY CHLORIDE 107 98 - 112 10/02/2018 [facility] mmol/L 9:18 AM [facility] LABORATORY CARBON DIOXIDE 28 21 - 32 10/02/2018 [facility] mmol/L 9:18 AM [facility] LABORATORY BUN (UREA 1 (L) 7 - 24 10/02/2018 [facility] NITRO) mg/dL 9:18 AM [facility] LABORATORY CREATININE 0.35 (L) 0.55 - 10/02/2018 [facility] 1.02 mg/dL 9:18 AM [facility] LABORATORY EST GFR >60 >60 mL/min 10/02/2018 [facility] (CKD-EPI) 9:18 AM [facility] LABORATORY EST GFR IF >60 >60 mL/min 10/02/2018 [facility] AM 9:18 AM [facility] LABORATORY GLUCOSE 100 74 - 106 10/02/2018 [facility] mg/dL 9:18 AM [facility] LABORATORY CALCIUM, SERUM 8.6 8.5 - 10.1 10/02/2018 [facility] mg/dL 9:18 AM [facility] LABORATORY ANION GAP 5.0 0.0 - 15.0 10/02/2018 [facility] mmol/L 9:18 AM [facility] LABORATORY Specimen Anatomical Collection Method Collection Time Receive d Time (Source) Location / / Volume Laterality Blood 10/02/2018 8:22 AM 9 8:40 CDT AM CDT Kimberly Rosas PA-C CHEMISTRY ORDERABLE Performing Organization Address City/State/ZIP Code Phon e Number [facility] [address] [place] [address] LABORATORY (ABNORMAL) Liver Profile (10/02/2018 8:22 AM CDT)Only the most recent of5 resultswithin the time period is included. Analysis Performed At Patho logist Time Signature ALT 271 (H) 12 - 68 10/02/2018 [facility] IU/L 9:18 AM [facility] LABORATORY ALKALINE 165 (H) 45 - 117 10/02/2018 [facility] P'TASE IU/L 9:18 AM [facility] LABORATORY AST (SGOT) 274 (H) 12 - 37 10/02/2018 [facility] IU/L 9:18 AM [facility] LABORATORY PROTEIN TOTAL 6.0 (L) 6.4 - 8.2 10/02/2018 [facility] g/dL 9:18 AM [facility] LABORATORY ALBUMIN 3.0 (L) 3.4 - 5.0 10/02/2018 [facility] g/dL 9:18 AM [facility] LABORATORY BILIRUBIN-DIRE 0.56 (H) 0.05 - 10/02/[address] [facility] [address] 0.24 mg/dL 9:18 AM [facility] LABORATORY BILIRUBIN-TOTA 1.2 (H) 0.2 - 1.0 10/02/2018 [facility] L mg/dL 9:18 AM [facility] LABORATORY Specimen Anatomical Collection Method Collection Time Receive d Time (Source) Location / / Volume Laterality Blood 10/02/2018 8:22 AM 9 8:40 CDT AM CDT Kimberly Rosas PA-C CHEMISTRY ORDERABLE Performing Organization Address City/State/ZIP Code Phon e Number [address] [place] [address] LABORATORY Magnesium (10/02/2018 8:22 AM CDT)Only the most recent of4 resultswithin the time period is included. P athologist Signature Magnesium 2.0 1.8 - 2.4 10/02/2018 [facility] mg/dL 9:07 AM [facility] LABORATORY Specimen Anatomical Collection Method Collection Time Receive d Time (Source) Location / / Volume Laterality Blood 10/02/2018 8:22 AM 9 8:40 CDT AM CDT Robby Conrad MD CHEMISTRY ORDERABLE Performing Organization Address City/State/ZIP Code Phon e Number [address] [place] [address] LABORATORY Potassium, Serum (10/01/2018 8:16 PM CDT)Only the most recent of3 resultswithin the time period is included. P athologist Signature POTASSIUM 4.2 3.5 - 5.1 10/01/2018 [facility] mmol/L 8:50 PM CDT HEALTH LABORATORY Specimen Anatomical Collection Method Collection Time Receive d Time (Source) Location / / Volume Laterality Blood 10/01/2018 8:16 PM 9 8:32 CDT PM CDT Marli Girard RN CHEMISTRY ORDERABLE Performing Organization Address City/State/ZIP Code Phon e Number [address] [place] [address] [phone] LABORATORY (ABNORMAL) Acetaminophen (10/01/2018 4:43 PM CDT)Only the most recent of3 resultswithin the time period is included. Patholo gist Method Time Signature ACETAMINOPHEN 2 (L) 10 - 30 10/01/2018 [facility] (TYLENOL) ug/mL 5:34 PM CDT HEALTH LABORATORY Specimen Anatomical Collection Method Collection Time Receive d Time (Source) Location / / Volume Laterality Blood 10/01/2018 4:43 PM 9 5:07 CDT PM CDT Erika Silver DO CHEMISTRY ORDERABLE Performing Organization Address City/State/ZIP Code Phon e Number [address] [place] [address] LABORATORY (ABNORMAL) IgG (10/01/2018 7:08 AM CDT) P athologist Signature IGG 530 (L) 700-1,600 10/01/2018 [facility] mg/dL 2:03 PM CDT HEALTH LABORATORY Specimen Anatomical Collection Method Collection Time Receive d Time (Source) Location / / Volume Laterality Blood 10/01/2018 7:08 AM 9 7:22 CDT AM CDT Criselda Coker MD CHEMISTRY ORDERABLE Performing Organization Address City/[facility]/ZIP Code Phon e Number [address] [place] [address] [phone] LABORATORY (ABNORMAL) SAMMY Screen (10/01/2018 7:08 AM CDT) Analysis Performed At Patho logist Time Signature SAMMY SCRN Positive (A) Negative 10/03/2018 [facility] 1:37 PM CDT HEALTH LABORATORY Specimen Anatomical Collection Method Collection Time Receive d Time (Source) Location / / Volume Laterality Blood 10/01/2018 7:08 AM 9 7:22 CDT AM CDT Crieslda Coker MD CHEMISTRY ORDERABLE Performing Organization Address City/State/ZIP Code Phon e Number [facility] [address] [place] [address] LABORATORY XR ELBOW LT (09/30/2018 1:16 PM [...] SIGNED BY DR. Lloyd Arcos Xuan Block POISER BALANCE, KINESIOLOGY PROFESSOR XRAY ORDERABLE Hepatitis A/B/C Panel (09/30/2018 6:42 AM CDT) Patholo gist Method Time Signature HEP BC IGM DELBERT Non-Reacti Non-Reacti 09/30/2018 [facility] 8:24 AM CDT HEALTH LABORATORY HEP A IGM DELBERT Non-Reacti Non-Reacti 09/30/2018 [facility] ve ve 8:24 AM CDT HEALTH LABORATORY HEP BS ANTIGEN Non-Reacti Non-Reacti 09/30/2018 [facility] [place] ve ve 8:24 AM CDT HEALTH LABORATORY Hepatitis C Non-Reacti Non-Reacti 09/30/2018 [facility] Antibody ve ve 8:24 AM CDT HEALTH LABORATORY Specimen Anatomical Collection Method Collection Time Receive d Time (Source) Location / / Volume Laterality Blood 09/30/2018 6:42 AM 9 6:59 CDT AM CDT Robby Conrad MD IMMUNOLOGY ORDERABLE Performing Organization Address City/[facility]/ZIP Code Phon e Number [address] [address] LABORATORY Lactic Acid (09/30/2018 6:42 AM CDT) P athologist Signature LACTIC ACID 1.9 0.7 - 2.1 09/30/2018 [facility] mmol/L 7:03 AM T [facility] LABORATORY Specimen Anatomical Collection Method Collection Time Receive d Time (Source) Location / / Volume Laterality Blood 09/30/2018 6:42 AM 9 7:00 CDT AM CDT Robby Conrad MD CHEMISTRY ORDERABLE Performing Organization Address City/[facility]/ZIP Code Phon e Number [address] [address] [phone] LABORATORY (ABNORMAL) CBC / Diff (09/30/2018 6:42 AM CDT) Patholo gist Method Time Signature WBC 14.6 (H) 4.3 - 09/30/2018 [facility] 10.8 K/uL 6:59 AM T HEALTH LABORATORY RBC 3.90 (L) 4.20 - 09/30/2018 [facility] 5.40 M/uL 6:59 AM T HEALTH LABORATORY HEMOGLOBIN 13.6 12.0 - 09/30/2018 [facility] 16.0 6:59 AM T HEALTH gm/dL LABORATORY HEMATOCRIT 39.9 36.0 - 09/30/2018 [facility] 48.0 % 6:59 AM CDT HEALTH LABORATORY MCV 102 (H) 80 - 100 09/30/2018 [facility] [facility] fl 6:59 AM CDT [facility] MCH 35 (H) 27 - 33 09/30/2018 [facility] pg 6:59 AM CDT HEALTH LABORATORY MCHC 34 33 - 36 09/30/2018 [facility] gm/dL 6:59 AM CDT HEALTH LAB[facility]ORY RDW 13.2 11.5 - 09/30/2018 [facility] 14.5 % 6:59 AM CDT HEALTH LAB[facility] PLATELET COUNT 257 150 - 400 09/30/2018 [facility] K/UL 6:59 AM CDT [facility] LAB[facility] MPV 9.7 6.5 - 12 09/30/2018 [facility] 6:59 AM CDT HEALTH LABORATORY PMN % 90.9 % 09/30/2018 [facility] 6:59 AM CDT HE[facility] LAB[facility] IG% 0.3 <=1.0 % 09/30/2018 [facility] 6:59 AM CDT HE[facility] LAB[facility]ORY LYMPH % 5.1 % 09/30/2018 [facility] 6:59 AM CDT HE[facility] LAB[facility]ORY MONO % 3.2 % 09/30/2018 [facility] 6:59 AM CDT HE[facility] LAB[facility]ORY EOS % 0.3 % 09/30/2018 [facility] 6:59 AM CDT HE[facility] LAB[facility]ORY BASO % 0.2 % 09/30/2018 [facility] 6:59 AM CDT HE[facility] LAB[facility] PMN ABSOLUTE 13.28 (H) 1.80 - 09/30/2018 [facility] 7.80 K/uL 6:59 AM CDT HEALTH LAB[facility] IG ABSOLUTE 0.05 K/uL 09/30/2018 [facility] 6:59 AM CDT HE[facility] LAB[facility]ORY LYMPH ABSOLUTE 0.74 (L) 1.00 - 09/30/2018 [facility] 4.00 K/uL 6:59 AM CDT HE[facility] LAB[facility] MONO ABSOLUTE 0.47 0.00 - 09/30/2018 [facility] 1.00 K/uL 6:59 AM CDT HEALTH LAB[facility] EOS ABSOLUTE 0.04 0.00 - 09/30/2018 [facility] 0.45 K/uL 6:59 AM CDT HE[facility] LAB[facility] BASO ABSOLUTE 0.03 0.00 - 09/30/2018 [facility] 0.20 K/uL 6:59 AM CDT HEALTH LAB[facility]ORY NUCL RBC % 0.0 0.0 - 0.0 09/30/2018 [facility] /100 WBC 6:59 AM CDT HE[facility] LAB[facility] NUCL RBC 0.00 K/uL 09/30/2018 [facility] ABSOLUTE 6:59 AM CDT HEALTH LABORATORY Specimen Anatomical Collection Method Collection Time Receive d Time (Source) Location / / Volume Laterality Blood 09/30/2018 6:42 AM 9 6:56 CDT AM CDT [facility] A Matter HEMATOLOGY ORDERABLE Performing Organization Address City/State/ZIP Code Phon e Number [facility] [address] [place] [address] LABORATORY documented in this encounter Visit Diagnoses [...] 15mg. documented in this encounter Care Teams Shellfish Bed Worker Relationship Specialty Start Date End Date [facility], [facility] PCP - General 09/30/18 [place] [place] [phone] [facility] PCP - Primary Care Clinic [address] [place] [id number] documented as of this encounter
--- OUTSIDE RECORDS SUMMARY | 2022-02-14 22:16 | XMS_ITS | Clinical Summary ---
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 Added automatically from request for dolly daley [phone] Thrombocytopenia 07/01/2021 Alcoholic cirrhosis 03/12/2021 Acute respiratory [...] signed 01/12/2017 Overview: Signed: 07/05/12-Kiana Pino APRN, POLICE MAGISTRATE - p sychiatry Anxiety disorder; NOS; APPLE [...] CDT HOSPITALIST DISCHARGE SUMMAR Y ? ? [facility] Admission Date: 02/08/2022 Discharge Date: 02/09/2022 Discharge [...] 139 POTASSIUM 3.7 3.9 CHLORIDE 103 108 [id number] 25 22 BUN 7 L 8 CREATININE [...] Component Value U nits Date/Time COVID 19 [[id number]] (Norm al) Collected: 02/08/22722 Lab Status: Final result Sp ecimen: Other from Nasopharyngeal Updated: 02/08/22 1109 COVID 19 [facility] egative Consultants [...] medical emergency. [facility] were [facility]? The reason(s) you were in [facility] is/are hepatic encephalopathy (your liver not processing [...] and examined today. Dominick Hickey DO Hospitalist, [facility] ? ? [phone] Cc: Matthew Jerome MD ([facility]) 02/08/2022 Travel 01/16/2022 Emergency Maye Gilliland, Epi sode of unresponsiveness (Primary Dx); MD [...] lb 8 ral oz) Comments: adopted out, [place] couple. patient did meet couple. Last Filed [...] 2013 18-79 Medical Devices Implanted Type Area Certified Shorthand Reporter Device Shelf Model / Identifier Expiration Serial / Date Lot Partially Threaded Screws Left: Grafton [id number] / Implanted: Qty: 1 on 08/29/2018 by Omar Montesinos MD at [facility] [employer] / Description: From [facility] briana tray Explanted Type Area Certified Shorthand Reporter Device Shelf Model / Identifier Expiration Serial / Date Lot 2.7mm Locking Screw Left: Grafton [id number] / Explanted: Qty: 1 on 08/29/2018 by Omar Montesinos MD at [facility] [employer] / Description: From [facility] briana tray Distal Medial Humerus Plates Left: Elbow [employer] [id number] / Implanted: Qty: 1 on 08/29/2018 by Omar Montesinos MD at [facility] / Explanted: Qty: 1 on 06/27/2019 by Omar Montesinos MD at [facility] Description: Loaner from [employer] elbow ad d on tray [...] 02/09 8:07 Unknown CDT AM CDT [facility] DO CHEMISTRY Performing Organization Address [facility] Phon e Number [facility] [address] [place] [address] (ABNORMAL) AMMONIA (02/09/2022 6:00 AM CDT)Only the most recent of2 results within the time period is included. P athologist Signature AMMONIA 95 (H) 11 - 35 02/09/2022 [place] umol/L 6:15 AM T [facility] Comment: 1. ??Sulfasalazine and its [...] Unknown Unknown CDT AM CDT Dominick Bucio [facility] DO CHEMISTRY Performing Organization Address [facility] Phon e Number [facility] [address] [place] [address] (ABNORMAL) CBC WITH AUTO DIFFERENTIAL (02/09/2022 5:59 AM CDT) Patholo gist Method Time Signature WHITE BLOOD 5.6 4.5 - 02/09/2022 [place] COUNT 11.0 6:07 AM T [facility] thou/cu LABORATORY mm RED BLOOD COUNT 2.59 (L) 4.00 - 02/09/2022 [place] 5.20 6:07 AM [facility]ENTER mil/cu mm LABORATORY HEMOGLOBIN 8.8 (L) 12.0 - 02/09/2022 [place] 16.0 g/dL 6:07 AM [facility] LAB[facility]ORY HEMATOCRIT 26.5 (L) 33.0 - 02/09/2022 [place] 51.0 % 6:07 AM [facility] LAB[facility] MCV 102 (H) 80 - 100 02/09/2022 [place] fL 6:07 AM [facility] LABORATORY MCH 34.0 26.0 - 02/09/2022 [place] 34.0 pg 6:07 AM [facility] MCHC 33.2 32.0 - 02/09/2022 [place] 36.0 g/dL 6:07 AM [facility] LAB[facility] RDW 23.2 (H) 11.5 - 02/09/2022 [place] 15.5 % 6:07 AM [facility] LABOR[facility]ORY PLATELET COUNT 51 (L) 140 - 440 02/09/2022 [place] thou/cu 6:07 AM [facility] mm LABORATORY MPV 9.8 6.5 - 02/09/2022 [place] 11.0 fL 6:07 AM [facility] LABORATORY % NEUT 72.8 % 02/09/2022 [place] 6:07 AM [facility] LAB[facility] % LYMPH 16.7 % 02/09/2022 [place] 6:07 AM [facility] % MONO 8.3 % 02/09/2022 [place] 6:07 AM [facility] % EOS 1.8 % 02/09/2022 [place] 6:07 AM [facility] % BASO 0.4 % 02/09/2022 [place] 6:07 AM [facility] ABSOLUTE 4.1 1.7 - 7.0 02/09/2022 [place] NEUTROPHILS thou/cu 6:07 AM [facility] LABORATORY ABSOLUTE 0.9 0.9 - 2.9 02/09/2022 [place] LYMPHOCYTES thou/cu 6:07 AM [facility] LABORATORY ABSOLUTE 0.5 <0.9 02/09/2022 [place] MONOCYTES thou/cu 6:07 AM [facility] mm LABORATORY ABSOLUTE 0.1 <0.5 02/09/2022 [place] EOSINOPHILS thou/cu 6:07 AM [facility] mm LABORATORY ABSOLUTE 0.0 <0.3 02/09/2022 [place] BASOPHILS thou/cu 6:07 AM [facility] mm LABORATORY Specimen Anatomical Collection Method Collection Time Receive d Time (Source) Location / / Volume Laterality Blood BLOOD SPECIMEN / Butterfly / 02/09/2022 5:59 AM 02/09 6:02 Unknown Unknown [facility] Cat[facility] Castle MD HEMATOLOGY Performing Organization Address City/State/ZIP Code Phon e Number [facility] [address] [place] [address] IRON PLUS IRON BINDING CAP (02/09/2022 5:59 AM CDT) athologist Signature IRON 126 25 - 156 02/09/2022 [facility] ug/dL 5:33 PM CDT LABORATORY-[facility]ENT [facility] LABORATORY UIBC <41 02/09/2022 [facility] (UNSATURATED) 5:33 PM CDT LAB[facility]ATORY-[facility] IRON BINDING 02/09/2022 [facility] CAPACITY 5:33 PM CDT LABORATORY-[facility] LABORATORY Comment: Results below measurement range , unable to calculate. IRON,% SATURATION 02/09/2022 5:33 PM CDT [facility] LABORATORY-CENTRAL LABORATORY Comment: Results below measurement range , unable to calculate. Specimen Anatomical Collection Method Collection Time Receive d Time (Source) Location / / Volume Laterality Blood BLOOD SPECIMEN / Butterfly / 02/09/2022 5:59 AM 02/09 6:02 Unknown Unknown CDT AM CDT Catia Castle MD CHEMISTRY Performing Organization Address City/State/ZIP Code Phon e Number [facility] [address] [place] [address] LABORATORY-CENTRAL 2000 LABORATORY (ABNORMAL) PROTIME-INR (02/09/2022 5:59 AM CDT)Only the most recent of2 results within the time period is included. athologist Signature INR 2.9 (H) <1.3 [facility] PROTIME 29.1 (H) 12.0 - 13.8 02/09/2022 [place] sec 6:12 AM CDT [facility] LABORATORY Specimen Anatomical Collection Method Collection Time Receive d Time (Source) Location / / Volume Laterality Blood BLOOD SPECIMEN / Butterfly / 02/09/2022 5:59 AM 02/09 6:02 Unknown Unknown CDT AM CDT Narrative [facility] - 6:12 AM CDT ?Therapeutic Range [...] Catia Castle MD HEMATOLOGY Performing Organization Address [facility]/ZIP Code Phon e Number [facility] [address] [place] [address] (ABNORMAL) HAPTOGLOBIN (02/09/2022 5:59 AM CDT) athologist Signature Haptoglobin <8 (L) 30 - 215 02/09/2022 [facility] mg/dL 7:00 PM CDT LABORATORY-CENT [facility] LABORATORY Specimen Anatomical Collection Method Collection Time Receive d Time (Source) Location / / Volume Laterality Blood BLOOD SPECIMEN / Butterfly / 02/09/2022 5:59 AM 02/09 6:02 Unknown Unknown CDT AM CDT Catia Castle MD CHEMISTRY Performing Organization Address City/[facility]/ZIP Code Phon e Number [facility] [address] [place] [address] [place] [address] LABORATORY-CENTRAL 1999 LABORATORY (ABNORMAL) FERRITIN (02/09/2022 5:59 AM CDT) P athologist Signature FERRITIN 710.1 (H) 15.0 - 02/09/2022 [facility] 205.0 5:44 PM CDT LABORATORY-CENT ng/mL [facility] LABORATORY Specimen Anatomical Collection Method Collection Time Receive d Time (Source) Location / / Volume Laterality Blood BLOOD SPECIMEN / Butterfly / 02/09/2022 5:59 AM 02/09 6:02 Unknown Unknown CDT AM CDT Catia Castle MD CHEMISTRY Performing Organization Address City/[facility]/ZIP Code Phon e Number [facility] [address] [address] LABORATORY-CENTRAL 1999 LABORATORY (ABNORMAL) HEPATIC FUNCTION PANEL (02/09/2022 5:59 AM CDT) Patholo gist Method Time Signature ALBUMIN 3.8 3.5 - 5.2 02/09/2022 [place] g/dL 6:35 AM [facility] LAB[facility]ATORY PROTEIN,TOTAL 5.5 (L) 6.0 - 8.0 02/09/2022 [place] g/dL 6:35 AM [facility] LAB[facility]ORY GLOBULIN 1.7 (L) 2.0 - 3.7 02/09/2022 [place] g/dL 6:35 AM [facility] LABORATORY A/G RATIO 2.2 (H) 1.0 - 2.0 02/09/2022 [place] 6:35 AM [facility] LABORATORY BILIRUBIN,TOTAL 14.4 (H) 0.2 - 1.2 02/09/2022 [place] mg/dL 6:35 AM [facility] LABORATORY BILIRUBIN,DIRECT 5.4 (H) 0.1 - 0.5 02/09/2022 [place] mg/dL 6:35 AM [facility] BILIRUBIN,INDIRE 9.0 (H) 0.2 - 0.8 02/09/2022 [facility] mg/dL 6:35 AM [facility] LAB[facility] ALK PHOSPHATASE 308 (H) 50 - 136 02/09/2022 [place] IU/L 6:35 AM [facility] ALT (SGPT) 25 8 - 45 02/09/2022 [facility] IU/L 6:35 AM [facility] AST (SGOT) 70 (H) 2 - 40 02/09/2022 [facility] IU/L 6:35 AM [facility] Specimen Anatomical Collection Method Collection Time Receive d Time (Source) Location / / Volume Laterality Blood BLOOD SPECIMEN / Butterfly / 02/09/2022 5:59 AM 02/09 6:02 Unknown Unknown CDT AM CDT Catia Castle MD CHEMISTRY Performing Organization Address City/State/ZIP Code Phon e Number [facility] [address] [place] [address] (ABNORMAL) BASIC METABOLIC PANEL (02/09/2022 5:59 AM CDT) Analysis Performed At Patho logist Time Signature SODIUM 136 135 - 145 02/09/2022 [place] mmol/L 6:24 AM [facility] POTASSIUM 3.7 3.5 - 5.0 02/09/2022 [place] mmol/L 6:24 AM [facility] LAB[facility]ORY CHLORIDE 103 98 - 110 02/09/2022 [place] mmol/L 6:24 AM [facility] LAB[facility] CO2,TOTAL 25 21 - 31 02/09/2022 [place] mmol/L 6:24 AM [facility] LABOR[facility]ORY ANION GAP 8 5 - 18 02/09/2022 [place] 6:24 AM [facility] LABOR[facility]ORY GLUCOSE 150 (H) 65 - 100 02/09/2022 [place] mg/dL 6:24 AM [facility] LAB[facility]ATORY CALCIUM 9.2 8.5 - 10.5 02/09/2022 [place] mg/dL 6:24 AM [facility] LABORATORY BUN 7 (L) 8 - 25 02/09/2022 [place] mg/dL 6:24 AM [facility] LAB[facility] CREATININE 0.66 0.57 - 02/09/2022 [facility] 1.11 mg/dL 6:24 AM [facility] LABORATORY BUN/CREAT RATIO 11 10 - 20 02/09/2022 [facility] 6:24 AM [facility] LABOR[facility]ORY eGFR >90 >90 02/09/2022 [place] mL/min/1.7 6:24 AM [facility] 3m2 LABORATORY Comment: As of 2021, [...] Organization Address City/State/ZIP Code Phon e Number [facility] [address] [place] [address] (ABNORMAL) HEMOGLOBIN (02/08/2022 12:33 PM CDT) athologist Signature HEMOGLOBIN 9.2 (L) 12.0 - 02/08/2022 [place] 16.0 g/dL 12:59 PM [facility] MCV 103 (H) 80 - 100 02/08/2022 [place] fL 12:59 PM [facility] LAB[facility] Specimen Anatomical Collection Method Collection Time Receive d Time (Source) Location / / Volume Laterality Blood BLOOD SPECIMEN / Butterfly / 02/08/2022 12:33 022 Unknown Unknown PM CDT 12:39 PM CDT Catia Castle MD HEMATOLOGY Performing Organization Address City/[facility]/ZIP Code Phon e Number [facility] [address] [place] [address] URINALYSIS MICROSCOPIC (02/08/2022 11:04 AM CDT) athologist Signature RBC 0-2 0-2, None 02/08/2022 [place] Seen /HPF 11:21 AM [facility] LAB[facility]ATORY WBC 0-2 0-2, 3-5, 02/08/2022 [place] None Seen 11:21 AM [facility] /HPF LABORATORY BACTERIA Few None Seen, 02/08/2022 [place] Rare, Few 11:21 AM [facility] Bacteria/H LABORATORY PF EPITHELIAL Few None Seen, 02/08/2022 [place] CELLS Few 11:21 AM [facility] Epi/HPF LABORATORY RENAL Few Few 02/08/2022 [place] EPITHELIAL 11:21 AM [facility] CELLS LABORATORY Specimen Anatomical Collection Method Collection Time Receive d Time (Source) Location / / Volume Laterality Urine URINE SPECIMEN / Non-Blood / 02/08/2022 11:04 022 Unknown Unknown AM CDT 11:12 AM CDT Gerard Cruz MD URINE Performing Organization Address City/[facility]/ZIP Code Phon e Number [facility] [address] [place] [address] (ABNORMAL) Urinalysis W Reflex Microscopic if Positive (02/08/2022 11:04 AM CDT) [facility] gist Method Time Signature COLOR Yellow Yellow Color 02/08/2022 [place] 11:21 AM [facility]ENTER LABORATORY CLARITY Clear Clear 02/08/2022 [place] Clarity 11:[address] [facility] LABORATORY SPECIFIC 1.015 1.010, 02/08/2022 [facility] GRAVITY,URINE 1.015, 11:21 AM MEDICAL 1.020, 1.025 [facility] LABORAT[facility] PH,URINE 6.5 6.0, 7.0, 02/08/2022 [facility] 8.0, 5.5, 11:21 AM MEDICAL 6.5, 7.5, T CENTER 8.5 LABORATORY UROBILINOGEN, Normal Normal EU/dl 02/08/2022 [place] QUALITATIVE 11:[address] [facility] LABORATORY PROTEIN, Negative Negative 02/08/2022 [place] URINE mg/dL 11:[address] [facility] LABORATORY GLUCOSE, Negative Negative 02/08/2022 [place] URINE mg/dL 11:[address] [facility] LABORATORY KETONES,URINE Negative Negative 02/08/2022 [facility] mg/dL 11:[address] [facility] LAB[facility]ATORY BILIRUBIN,URI Abnormal (A) Negative 02/08/2022 [place] NE 11:[address] [facility] LABORATORY Comment: A variety of metabolites and/or medications may result in a positive bilirubin result. Clinical correlation i s recommended. OCCULT BLOOD,URINE Negative Negative 02/08/2022 11:21 AM [facility] LABORATORY NITRITE Negative Negative 02/08/2022 11:21 AM [facility] LABORATORY LEUKOCYTE ESTERASE Negative Negative 02/08/2022 11:21 AM [facility] LABORATORY Specimen Anatomical Collection Method Collection Time Receive d Time (Source) Location / / Volume Laterality Urine URINE SPECIMEN / Non-Blood / 02/08/2022 11:04 022 Unknown Unknown AM CDT 11:12 AM CDT Gerard Cruz MD URINE Performing Organization Address City/State/ZIP Code Phon e Number [facility] [address] [place] [address] TRANSFUSE RBC (NURSE COMMUNICATION ORDER) (02/08/2022 9:44 AM CDT) Specimen (Source) Anatomical Location Collection Method / Collectio n Time Received Time / Laterality Volume Blood BLOOD SPECIMEN / Unknown Gerard Cruz MD NURSING BLOOD BANK COVID 19 (02/08/2022 7:23 AM CDT) Analysis Performed At [facility] logist Time Signature COVID 19 Negative Negative 02/08/2022 [facility] 11:09 AM [facility] MOLECULAR LABORATORY Comment: All PCR tests are [...] CDT AM CDT STRUCTURE / Unknown Narrative [facility] LABOR[facility]ORY - 11:09 AM CDT This test [...] Gerard Cruz MD MICROBIOLOGY Performing Organization Address [facility] LABORATORY [address] [place] [address] COVID 19 COLLECTION (02/08/2022 7:23 AM CDT) [facility] gist Method Time Signature TESTING [facility] 02/08/2022 [place] LABORATORY Laboratory 7:44 AM [facility] LABORATORY Comment: Specimen submitted to [facility] for testing. Specimen Anatomical Location / Collection Method Collection Hiro e Received Time (Source) Laterality / Volume Other SPECIMEN FROM Non-Blood / 02/08/2022 7:23 02/08/2022 7:38 NASOPHARYNGEAL Unknown AM CDT AM CDT STRUCTURE / Unknown Gerard Cruz MD SEND OUTS Performing Organization Address [facility] e [facility] LABORATORY [address] [place] [address] RED BLOOD CELLS EA UNIT (02/08/2022 6:56 AM CDT) [facility] Time Signature CROSSMATCH Compatible Compatible [facility] LABORATORY BLOOD BANK PRODUCT BLOOD B Rh Positive [facility] LAB[facility]AT[facility] BLOOD BANK PRODUCT ID [id number] [facility] LAB[facility] BLOOD BANK PRODUCT STATUS Transfused [facility] LABORATORY BLOOD BANK PRODUCT RBC -1 LR [facility] LABORATORY BLOOD BANK PRODUCT CODE [id number] [facility] LABORATORY BLOOD BANK ISSUE 02/08/22 [facility] DATE/TIME 07:49 [facility] LABORATORY BLOOD BANK Specimen (Source) Anatomical Location Collection Method / Collectio n Time Received Time / Laterality Volume Gerard Cruz MD BLOOD BANK Performing Organization Address [facility] Code Phon e Number [facility] [address] [place] [address] BLOOD BANK (ABNORMAL) RED CELL MORPHOLOGY (02/08/2022 5:23 AM CDT) [facility] Signature ACANTHOCYTES Many 02/08/2022 [place] 6:11 AM CDT [facility] LABORATORY POLYCHROMASIA Slight 02/08/2022 [facility] 6:11 AM [facility] LAB[facility]ATORY SCHISTOCYTES Few 02/08/2022 [facility] 6:11 AM T [facility] LABORATORY RBC COMMENT Present (A) RBC 02/08/2022 [facility] morphology 6:11 AM [facility] CENTER normal, RBC LABORATORY morphology within normal limits for newborns. Specimen Anatomical Collection Method Collection Time Receive d Time (Source) Location / / Volume Laterality Blood BLOOD SPECIMEN / Butterfly / 02/08/2022 5:23 AM 02/08 5:46 Unknown Unknown CDT AM CDT Gerard Cruz MD HEMATOLOGY Performing Organization Address City/[facility]/ZIP Code Phon e Number [facility] LABOR[facility]ORY [address] [place] [address] (ABNORMAL) PLATELET ESTIMATE (02/08/2022 5:23 AM CDT) [facility] Signature PLATELET Decreased (A) Adequate, No 02/08/2022 [facility] ESTIMATE estimate 6:11 AM [facility] LABORATORY Specimen Anatomical Collection Method Collection Time Receive d Time (Source) Location / / Volume Laterality Blood BLOOD SPECIMEN / Butterfly / 02/08/2022 5:23 AM 02/08 5:46 Unknown Unknown CDT AM CDT Gerard Cruz MD HEMATOLOGY Performing Organization Address City/State/ZIP Code Phon e Number [facility] LABOR[facility]ORY [address] [place] [address] (ABNORMAL) CBC w PLT no Diff (02/08/2022 5:23 AM CDT) [facility] Method Time Signature WHITE BLOOD 4.5 4.5 - 11.0 02/08/2022 [place] COUNT thou/cu mm 6:13 AM [facility] LABORATORY RED BLOOD COUNT 1.96 (L) 4.00 - 02/08/2022 [place] 5.20 6:13 AM [facility] mil/cu mm LABORATORY HEMOGLOBIN 6.9 (LL) 12.0 - 02/08/2022 [place] 16.0 g/dL 6:13 AM [facility] LABORATORY HEMATOCRIT 20.8 (L) 33.0 - 02/08/2022 [place] 51.0 % 6:13 AM [facility] LABORATORY MCV 106 (H) 80 - 100 02/08/2022 [facility] fL 6:13 AM [facility] LABORATORY MCH 35.2 (H) 26.0 - 02/08/2022 [place] 34.0 pg 6:13 AM [facility] LABORATORY MCHC 33.2 32.0 - 02/08/2022 [place] 36.0 g/dL 6:13 AM [facility] LABORATORY RDW 21.8 (H) 11.5 - 02/08/2022 [place] 15.5 % 6:13 AM [facility] LABORATORY PLATELET COUNT 54 (L) 140 - 440 02/08/2022 [place] thou/cu mm 6:13 AM [facility] LABORATORY MPV 9.0 6.5 - 11.0 02/08/2022 [facility] fL 6:13 AM [facility] LABORATORY Specimen Anatomical Collection Method Collection Time Receive d Time (Source) Location / / Volume Laterality Blood BLOOD SPECIMEN / Butterfly / 02/08/2022 5:23 AM 02/08 5:46 Unknown Unknown CDT AM CDT Gerard Cruz MD HEMATOLOGY Performing Organization Address City/[facility]/ZIP Code Phon e Number [facility] LABORATORY [address] [place] [address] Ethanol Serum or Plasma (02/08/2022 5:23 AM CDT) athologist Signature ETHANOL <0.010 <0.010 g/dL 02/08/2022 [place] 6:12 AM CDT [facility] LABORATORY Specimen Anatomical Collection Method Collection Time Receive d Time (Source) Location / / Volume Laterality Blood BLOOD SPECIMEN / Butterfly / 02/08/2022 5:23 AM 02/08 5:46 Unknown Unknown CDT AM CDT Gerard Cruz MD CHEMISTRY Performing Organization Address City/[facility]/ZIP Code Phon e Number [facility] LABORATORY [address] [place] [address] (ABNORMAL) Magnesium (02/08/2022 5:23 AM CDT) athologist Signature MAGNESIUM 1.3 (L) 1.6 - 2.6 02/08/2022 [place] mg/dL 6:12 AM CDT [facility] LABORATORY Specimen Anatomical Collection Method Collection Time Receive d Time (Source) Location / / Volume Laterality Blood BLOOD SPECIMEN / Butterfly / 02/08/2022 5:23 AM 02/08 5:46 Unknown Unknown CDT AM CDT Gerard Cruz MD CHEMISTRY Performing Organization Address City/State/ZIP Code Phon e Number [facility] LABORATORY [address] [place] [address] Lipase (02/08/2022 5:23 AM CDT) athologist Signature LIPASE 11.7 8.0 - 78.0 02/08/2022 [place] IU/L 6:10 AM CDT [facility] LABORATORY Specimen Anatomical Collection Method Collection Time Receive d Time (Source) Location / / Volume Laterality Blood BLOOD SPECIMEN / Butterfly / 02/08/2022 5:23 AM 02/08 5:46 Unknown Unknown CDT AM CDT Gerard Cruz MD CHEMISTRY Performing Organization Address City/State/ZIP Code Phon e Number [facility] LABORATORY [address] [place] [address] (ABNORMAL) Complete Metabolic Panel (02/08/2022 5:23 AM CDT) [facility] Method Time Signature SODIUM 139 135 - 145 02/08/2022 [place] mmol/L 6:09 AM [facility] POTASSIUM 3.9 3.5 - 5.0 02/08/2022 [place] mmol/L 6:09 AM [facility] CHLORIDE 108 98 - 110 02/08/2022 [place] mmol/L 6:09 AM [facility] CO2,TOTAL 22 21 - 31 02/08/2022 [place] mmol/L 6:09 AM [facility] ANION GAP 9 5 - 18 [facility] GLUCOSE 125 (H) 65 - 100 02/08/2022 [place] mg/dL 6:09 AM [facility] CALCIUM 8.3 (L) 8.5 - 02/08/2022 [place] 10.5 6:09 AM [facility] mg/dL LABORATORY BUN 8 8 - 25 02/08/2022 [place] mg/dL 6:09 AM [facility] CREATININE 0.63 0.57 - 02/08/2022 [place] 1.11 6:09 AM [facility] mg/dL LABORATORY BUN/CREAT RATIO 13 10 - 20 02/08/2022 [place] 6:09 AM [facility] ALBUMIN 3.5 3.5 - 5.2 02/08/2022 [place] g/dL 6:09 AM [facility] PROTEIN,TOTAL 5.0 (L) 6.0 - 8.0 02/08/2022 [place] g/dL 6:09 AM [facility] LABORATORY GLOBULIN 1.5 (L) 2.0 - 3.7 02/08/2022 [place] g/dL 6:09 AM [facility] A/G RATIO 2.3 (H) 1.0 - 2.0 02/08/2022 [place] 6:09 AM [facility] BILIRUBIN,TOTAL 10.7 (H) 0.2 - 1.2 02/08/2022 [place] mg/dL 6:09 AM [facility] ALK PHOSPHATASE 293 (H) 50 - 136 02/08/2022 [place] IU/L 6:09 AM [facility] ALT (SGPT) 20 8 - 45 02/08/2022 [place] IU/L 6:09 AM [facility] AST (SGOT) 57 (H) 2 - 40 02/08/2022 [place] IU/L 6:09 AM [facility] eGFR >90 >90 02/08[facility] mL/min/1. 6:09 AM [facility] 73m2 LABORATORY Comment: As of 2021, [...] Organization Address City/State/ZIP Code Phon e Number [facility] [address] [place] [address] EKG 12 Lead (02/08/2022 4:51 AM CDT) [...] NOW QTc 507 ms BEYOND NOW P [place] 50 degrees BEYOND NOW R [place] 37 degrees BEYOND NOW T [place] 26 degrees BEYOND NOW Specimen Anatomical Collection Method Collection Time Receive d Time (Source) Location / / Volume Laterality 02/08/2022 4:51 AM 5:56 CDT AM CDT Gerard Cruz MD EKG ORD Performing Organization Address City/State/ZIP Code Phon e Number BEYOND NOW [place], [place] RBC W TYPE AND SCREEN (02/08/2022 12:56 AM CDT) [facility] Method Time Signature ABORH B Rh 02/08/2022 [...] Cruz MD BLOOD BANK Performing Organization Address City/State/ZIP Code Phon e Number [facility] [address] [place] [address] BLOOD BANK from Last 3 Months Insurance Payer Benefit Plan / Subscriber ID Effective Dates Phone Addre ss Type Group BLUE [employer]OSS [place] BLUE ADVANTAGE [id number] 2018-Present [address] [address] [place] [address] [place] [id number] 2015-Presen [address] [address] [place] [address] Catia Carias E Personal/Famil Self 1990 AP T 3 y (Home) [address] [place] [address] Catia Carias E Motor Vehicle Self 1990 [address] (Home) [place] [address] Advance Directives Latest Code Status on File [...] 12:37 AM 11/08/2019 9:50 PM Care Teams Lead Tinner Relationship Specialty Start Date End Date Ana Red PA-C PCP - General Physician Poultry Hatchery Man 02/09/[address] [place] [address] [place] [id number]
--- OUTSIDE RECORDS SUMMARY | 2022-02-14 22:16 | XMS_ITS | Clinical Summary ---
:1990 Author Organization [facility] Address [address] [place] [address] Care Team Providers Name Role Phone Clinic, [facility] Primary Care Provider [facility], [facility] Unavailable [phone] Allergies Active Allergy Reactions Severity Noted Date [...] Addre ss Type Group BLUE CROSS BCBS [facility] [id number] 2018-Present [phone] [address] [address] [place] [address] Catia Carias Personal/Family Self 1990 A PT 3 (Home) [address] [place] [address] Advance Directives For more information, please contact: [phone] Latest Code Status on File Code Status Date Activated Date Inactivated Comments Full Code 09/30/2018 4:42 AM 10/02/2018 6:07 PM How was code status determined? Patient Care Teams Client Experience Consultant Relationship Specialty Start Date End Date [facility] PCP - General 09/30/18 [place] [address] [place] [phone] [facility] PCP - Primary Care Clinic [address] [place] [address] [place] [phone]
--- OUTSIDE RECORDS SUMMARY | 2022-02-14 22:16 | XMS_ITS | Clinical Summary ---
:1990 Author Organization [facility] Address [address] [place], [place] [address] [address] Phone Care Team Providers Name Role Phone Unavailable Primary Care Provider Unavailable Source Comments 5o9 is fully rolled out on Neovasc. Last update 10/05/08.[facility] Allergies Active Allergy Reactions Severity Noted Date [...] Comments Blood Pressure 114/67 07/08/2021 4:03 PM LOSS PREVENTION MANAGER Pulse 82 07/08/2021 4:03 PM LOSS PREVENTION MANAGER Temperature 36.9 ??C (98.5 ??F) 07/08/2021 6:31 AM LOSS PREVENTION MANAGER Respiratory Rate 16 07/08/2021 4:03 PM LOSS PREVENTION MANAGER Oxygen Saturation 98% 07/08/2021 4:03 PM LOSS PREVENTION MANAGER Inhaled Oxygen Concentration - - Weight [...] Type / Group BLUE CROSS BCBS BLUE [id number] 2018-Sung [address] [address] [place] Managed BLUE [employer]ELD [place] [address] (Home) [address] [place] [id number]
--- OUTSIDE RECORDS SUMMARY | 2022-02-14 22:16 | XMS_ITS | Encounter Summary ---
:1990 Author Organization [address] [address] Phone Care Team Providers Name Role Phone Unavailable Primary Care Provider Unavailable Encounter Details Date Type Department Care Team Description 07/15/2021 Nurse Triage [facility] Contact Center Cary Segura, RN [facility] [address] [place] [address] [place] [address] Social History Tobacco Use Types Packs/Day Years Used Date Smoking Tobacco: Never Assessed Sex Assigned at Date Recorded Not on file COVID-19 Exposure Response Date Recorded In the last 10 days, have you been in contact with No / Unsu re 07/08/2021 9:38 AM DRIFTMAN someone who was confirmed or suspected to have Coronavirus/COVID-19? documented as of this encounter Miscellaneous Notes Telephone Encounter - Cary Segura RN - 07/15/2021 9:06 AM CDT D: Telephone call received from patient questioning why she was not give blood when she was transferred to [facility] from [facility]. A: Spoke with caller and advised [...]
--- OUTSIDE RECORDS SUMMARY | 2022-02-14 22:16 | XMS_ITS | Encounter Summary ---
:1990 Author Organization [facility] Address [address] [place] [address] Phone Care Team Providers Name Role Phone [...] No / Unsu re 07/08/2021 9:38 AM MANAGER FRAUD someone who was confirmed or suspected to have Coronavirus/COVID-19? documented as of this encounter Plan of Treatment Not on filedocumented as of this encounter Visit Diagnoses Not on filedocumented in this encounter
--- OUTSIDE RECORDS SUMMARY | 2022-02-14 22:16 | XMS_ITS | Encounter Summary ---
:1990 Author Organization [facility] Address [address] [place] [address] Care Team Providers Name Role Phone [facility] Primary Care Provider [facility] Unavailable [phone] Encounter Details Date Type Department Care Team [...] on filedocumented in this encounter Care Teams New Accounts Clerk Relationship Specialty Start Date End Date [facility] PCP - General 09/30/18 [place] [address] [place] [address] [facility] PCP - Primary Care Clinic [address] [place] [address] [place] [address] documented as of this encounter
--- OUTSIDE RECORDS SUMMARY | 2022-02-14 22:17 | XMS_ITS | Encounter Summary ---
:1990 Author Care Team Providers Name Role Phone Ervin Schroeder MD Primary Care Provider [phone] Sandoval Byrnes [facility] OTHER [phone] Parris Knight (Mother) Patient Designee [phone] Jairo Rodriguez LINOLEUM LAYER APPRENTICE Nurse Practitioner [phone] Matthew Rollins MD Transplant Hvac Designer [phone] [facility] Care Team Palliative Care [phone] Taylor Paul RN Palliative Care [phone] Zenobia Kirby [facility] Recovery Advocate [phone] Reason for Visit None recorded. Assessment and Plan Assessment Note Patient answered the phone, states that she is in a car heading to [place] to the transplant clinic. She would like to reschedule appointment. Ok to call and reschedule appointment. Message sent to [facility] No services performed. Discussion Note: None recorded.Patient [...] Inhale 1 each as needed. Med Name: [employer] Cannabis Flower, smoking once weekly as needed [...] Status Unknown. Past Encounters 02/05/2022 Jairo Rodriguez, STAFF ANESTHETIST: [address], [place] [address], Ph. History of Present Illness None recorded. Review of Systems None recorded. Physical Exam None recorded.
--- OUTSIDE RECORDS SUMMARY | 2022-02-14 22:17 | XMS_ITS | Encounter Summary ---
:1990 Author Care Team Providers Name Role Phone Ervin Schroeder MD Primary Care Provider [phone] [facility] OTHER [phone] Parris Knight (Mother) Patient Designee [phone] Jairo Rodriguez FIELD CLINICAL ENGINEER Nurse Practitioner [phone] Matthew Rollins MD Transplant Hall Supervisor [phone] [facility] Care Team Palliative Care [phone] Taylor Paul RN Palliative Care [phone] Zenobia Kirby [facility] Front End Software Engineer [phone] Reason for Visit Transition of Care Assessment [...] care for herself during the day. Scheduled FIELD CLINICAL ENGINEER follow up for next week. Nurse advised [...] Alexandre's 23/11 availab ility of a licensed nuclear control room operator to provide immediate guidance over the phone [...] Education provided. Next Steps: Patient outreach in community health 3-4 weeks. [Research resources]. Taylor Paul RN Discussion Note: None recorded.Patient educational handouts: No information available. Plan of Care Patient Instructions Patient instructed to call with [facility] or concerns. Reminders Provider Appointments None [...] Unknown. Past Encounters 11/27/2021 Taylor Paul RN: [address] [place] [address], Ph. 11/05/2021 Jairo Silvano Jennifer, FLOORHAND: [address] [place] [address], Ph. [phone] History of Present Illness Note: <div>Contact: Nurse performed follow-up visit via {{phone* face to face video}}. Patients' name and date of verified. </div><div>Patient story is presented {{entirely primarily*}} by the {{patient* patient's brother patient's ozdponq-cw-vxs patient's caregiver patient's daughter patient's qgmmiikq-qh-qmp patient's friend patient's grandchild patient's patient's sister patient's rgczjh-yt-qkq patient's son patient's son-in-law patient's }} . 31 year-old, {{female* male}} with a reported history of alcoholic cirrhosis and acute respiratory failure who ap pears {{alert, oriented and answering questions appropriately* confused and not answering questions appropriately}}. </div><div>
</div><div>Start time: {{ 3:00pm#}} Stop time: {{ 3:20pm#}}</div><div>Clinician Located: {{Clinician Home Address* [place] Office Address Patient?s Home Address}} </div><div>Patient physically located at: {{Patient's Home Address* SENIOR CARE Location, Name of Facility, City/State SNF Location, Name of Facility, City/State LTC Location, Name of Facility, City/State Other Location, City, State}}</div><div>
</div> Review of Systems None recorded. Physical Exam None recorded.
--- OUTSIDE RECORDS SUMMARY | 2022-02-14 22:17 | XMS_ITS | Encounter Summary ---
:1990 Author Care Team Providers Name Role Phone Ervin Schroeder MD Primary Care Provider [phone] [facility] OTHER [phone] Parris Knight (Mother) Patient Designee [phone] Jairo Rodriguez MANAGER EXPORT Nurse Practitioner [phone] Matthew Rollins MD Transplant Procedure Tech [phone] [facility] Care Team Palliative Care [phone] Taylor Paul RN Palliative Care [phone] Zenobia Kirby [facility] Oven Operator [phone] Reason for Visit JAN Continuation of Care [...] Inhale 1 each as needed. Med Name: Status Overload ada Cannabis Flower, smoking once weekly as [...] Code Code System Name Reaction Severity Onset 38523 RxNorm Azithromycin ? ? ? Problems Name [...] Status Unknown. Past Encounters 12/01/2021 Jairo Rodriguez SDC TEACHER: [address] [place] [address], Ph. 11/27/2021 Taylor Paul RN: [address] [place] [address], Ph. 11/05/2021 Jairo Rodriguez SDC TEACHER: [address] [place] [address], Ph. [phone] History of Present Illness Note: <div>provider called 3 times, no answer. </div><div>Asking [facility] to try and reschedule appt. </div><div>No services performed.
</div> Review of Systems None recorded. Physical Exam None recorded.
--- OUTSIDE RECORDS SUMMARY | 2022-02-14 22:17 | XMS_ITS ---
:1990 Author Care Team Providers Name Role Phone STEPHANIE RODRIGUEZ AMILCAR Nurse Practitioner [phone] Parris Knight (mother) Patient Designee [phone] HEYDI BHAGAT MD Transplant Tire Curer [phone] [facility] CARE TEAM Palliative Care [phone] TAYLOR PAUL RN Palliative Care [phone] DOMINICK TODD MD Primary Care Provider [phone] [facility] Travel Registered Nurse Pacu [phone] THOMAS JERNIGAN [facility] OTHER [phone] Allergies Code Code System Name Reaction Severity [...] None recorded. Past Encounters 02/05/2022 Stephanie Rodriguez SENIOR TABLEAU DEVELOPER: [address] [place] [address], Ph. 12/01/2021 Stephanie Rodriguez CNP: [address] [place] [address], Ph. 11/27/2021 Taylor Paul RN: [address] [place] [address], Ph. 11/05/2021 Stephanie Rodriguez, SENIOR TABLEAU DEVELOPER: [address] [place] [address], Ph. [phone] 10/14/2021 Evi Biggs LPN: [address] [place] [address] [place] [address], Ph. [phone] Social History None recorded. Vaccine List None recorded. Plan of Care Patient Instructions Patient instructed to call with [employer] ns or concerns. Patient instructed to call with [employer] ns or concerns. Reminders Provider Appointments None recorded. ? ? Lab None recorded. ? ? Referral None recorded. ? ? Procedures None recorded. ? ? Surgeries None recorded. ? ? Imaging None recorded. ? ? Vitals Height Weight BMI Blood Pressure 5 ft 2 in 133 lbs 24.3 kg/m2 98/58 mm[Hg]
[2022-02-14] MEDS: KETOROLAC 30 MG/ML inj 15 MG IM (22:32)
[2022-02-14] MEDS: ACETAMINOPHEN 500 MG TABLET PO (22:33)
[2022-02-14 22:39] VITALS: BP 131/73; PULSE 100; RESP 22; O2SAT 94
== END 2022-02-14 22:41 | disposition home or self-care (01) ==
PROVIDERS: Emergency Provider Family Medicine; PCP Internal Medicine
DX: M54.9 Dorsalgia, unspecified (principal); R18.8 Other ascites; K76.9 Liver disease, unspecified
CPT/HCPCS: 96372; 99283; 99284; A9270; J1885

== ENCOUNTER 2022-02-16 12:07 | Outpatient (REF) | payer BC, SELFPAY ==
--- OUTSIDE RECORDS SUMMARY | 2022-02-16 12:14 | XMS_ITS | Clinical Summary ---
:1990 Author Organization [facility] Address [address] [place] [address] Care Team Providers Name Role Phone Ana Red P.A.-C. Primary Care Provider [phone] Source Comments Patient records contain information from all sites at [facility]. For routine questions regarding patient records, call [phone] during business hours, M-F 8:00 AM - 5:00 PM Central Time. Record requests for emergency care only can be directed to [phone] at any time.[facility] Allergies Active Allergy Reactions Severity Noted Date [...] to full 100mg dose on Friday 02/02. prochlorperazine Take 10 mg by 0 Active (COMPAZINE) 10 mg mouth. tablet acetaminophen acetaminophen 500 mg tablet 0 Active (TYLENOL) 500 mg TAKE 1 TABLET BY MOUTH EVER Y 6 HOURS NEEDED FOR MILD PAIN OR SCORE 1-3 OF 10 OR MODERATE PAIN OR SCORE 4-6 OF 10 tablet oxyCODONE Take 0.5 tablets 10 tablet 0 02/16/2022 Ac tive (ROXICODONE) 5 mg (2.5 mg total) immediate release by mouth every 8 tabletIndications: (eight) hours as Acute Pain Exception needed for severe pain or score 7-10 of 10 Indication: Acute Pain Exception. folic acid 1 mg Take 1 mg [...] lactulose (CHRONULAC) Take 30 mL (20 g 65959 mL 3 01/27/2022 01/29/2022 Discontinued 20 gram/30 [...] com pleted) as needed for muscle spasms. oxyCODONE Take 0.5 tablets 10 tablet 0 02/10/2022 02/16/2022 D iscontinued (ROXICODONE) 5 mg (2.5 mg total) (Reorder) immediate release by mouth every 8 tabletIndications: (eight) hours as Acute Pain Exception needed for severe pain or score 7-10 of 10 Indication: Acute Pain Exception. Active Problems Problem Noted Date Pain Low Back Vertebrogenic 02/01/2022 Attention Deficit Hyperactive Disorder 02/01/2022 Chronic Kidney Disease (CKD), Stage 3b Glomerular Filt ration Rate (GFR) 30 02/01/2022 To 44 Insomnia 02/01/2022 Restless Leg Syndrome 02/01/2022 Deficiency Vitamin D 02/01/2022 Esophageal Varices Without Bleeding 01/28/2022 Cirrhosis Alcoholic 12/10/2021 Overview: Added automatically from request for dolly daley [id number] Smoking Tobacco Use Personal History 10/10/2021 Overview: Quit smoking spring 2021. 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 02/16/2022 Refill [facility], Med Refil l Medicine Ana, P.A.-C. 02/16/2022 Nurse Triage Family Medicine [place], Rectal Bleed ing Yue Schaefer R.NSuma 02/15/2022 Orders Only Gastroenterology and Matthew Jerome, Hepatology Lilian Santillan 02/15/2022 Nurse Triage [facility], Medical I nformation Medicine Macy Johnson R.N. 02/13/2022 Clinical [facility], [facility] Medicine Shanita Perez.A.-C. 02/13/2022 Nurse Triage [facility] A R.N. 02/13/2022 Clinical [facility], Communication Frances KellerASuma-CSuma 02/12/2022 Office Visit Transplant Adeline Frazier M.D., Ph.D. Zenobia Hollingsworth M.A., L.AJulesC. 02/11/2022 Office Visit [facility], Fracture T11-12 Wedge Compression Sequela (Primary Dx); Solitario Perez, Cirrhosis Alcoh olic (HCC); P.A.-C. Hypertension Po rtal (HCC); Thrombocytopeni a (HCC); Abnormal Liver Function Test; Hepatic Encepha lopathy Without Coma (HCC); Fracture Lumbar First Wedge Compression Sequela 02/11/2022 Refill [facility], Med Refil l Frances KellerA.-C. 02/10/2022 Virtual Visit Transplant Matthew Jerome, Alcoholic Ci rrhosis Lilian Santillan Of Liver With Ascites Rain Reyes (HCC) [K70.31 M, R.N. (ICD-10-CM)] (P rimary Dx) 02/10/2022 Orders Only [facility], Farida Keller-C. 02/10/2022 Clinical Transplant Matthew Jerome, Phone Contact Communication Lilian Santillan 02/10/2022 Clinical [facility], Post Hosp ital Communication Solitario Govea R.N. Follow-up 02/10/2022 Documentation Gastroenterology and Shayne Hepatology Tyrell Lopez 02/09/2022 Clinical [facility] Communication Carlotta KellerCSuma 02/09/2022 Clinical Anesthesiology Alyssa Arana schedule d for Communication S, R.N. 02/1002/05/2022 Hospital Encounter Radiology Matthew Jerome, Chronic Pain Syndrome (Primary Dx); JoshuaBLilian Staples Ascites Chron ic; Hypertension Po rtal (HCC); Hepatic Failure Unspecified Without Coma (HCC); Alcoholic Cirrh osis Of Liver With Ascites (HCC) 02/04/2022 Orders Only Acute Care Sara Gracia M.D. 02/04/2022 Clinical Gastroenterology and Matthew Jerome, Phone Contact (RN and Communication Hepatology Lilian Santillan MD follow up ) 02/04/2022 Clinical [facility], Post Hosp ital Communication Medicine Myrtle Govea Follow-up (NORBERT CE [address]) 02/03/2022 Clinical Gastroenterology and Matthew Jerome, Communication Hepatology Lilian Santillan 02/02/2022 Orders Only [facility], Medicine Ana, P.A.-C. 02/02/2022 [facility], [facility] Medicine Ana, P.A.-C. 02/01/2022 Emergency Ashlyn, Paty Pain Flank (Pr imary Dx); - [...] R.N. Follow-up 01/30/2022 Orders Only [facility] Harinder Mccormick M.D. 01/30/2022 Clinical [facility] [place], Post Hosp ital Communication Medicine Parris Schaefer, Follow-up R.N. 01/30/2022 Clinical [facility] Medicine Ana, P.A.-C. 01/29/2022 Refill [facility], Med Refil l Medicine Ana P.A.-C. 01/29/2022 Orders Only Pharmacy Genaro Handley 01/29/2022 Clinical Transplant Adry Peterson Phone Contact Communication 01/28/2022 Virtual Visit Transplant Matthew Jerome, Canceled (Danie albright: Callie Santillan. Hospitalized / ill) 01/28/2022 Clinical Acute Care Doll, Pre-visit Testi ng Communication Gary Tenorio.Jeri 01/27/2022 Orders Only Pharmacy Yolande Evi Loretta 01/26/2022 Anesthesia Event Gastroenterology and Gildardo Hickey Hepatology Patrica, CUTTING PRESSMAN, WINEMAKER, DNAP Catia Green, CUTTING PRESSMAN, SHANNON, DNAP 01/26/2022 Ancillary Procedure 01/26/2022 Clinical Pharmacy Christopher, Nicole Rx Prior Communication A Authorization (PA DENIED - LIDOCA INE 5% PATCH) 01/26/2022 Orders Only Pharmacy Christopher, Nicole A 01/23/2022 Ancillary Procedure 01/23/2022 Anesthesia Event Gastroenterology and Roseanne, Hepatology Allegra Wilkes APRN, WINEMAKER 01/22/2022 Clinical [facility], Form Revi ew Communication Solitario Perez, ([facility] P.A.-C. med reconciliat ion) 01/20/2022 Hospital [...] Coma (HCC) 01/20/2022 Office Visit [facility], Pain Low Back Unspecified (Primary Dx); Solitario Perez, Cirrhosis Alcoh olic (HCC); P.A.-C. Ascites; Long QT Syndrom e; Rhinitis Allerg ic; Alcohol Use Uns pecified With Unspecified Alcohol Induced Disorder (HCC) 01/20/2022 Clinical Gastroenterology and Felicita Spicer Communication Hepatology E, L.P.N. 01/20/2022 Refill [facility], Med Refil l Medicine Ana, P.A.-C. 01/20/2022 Orders Only Pharmacy Mestad, Lina C 01/19/2022 Orders Only [facility] Ana, P.A.-C. 01/19/2022 Orders Only Transplant Ailts, Garry Engle., R.N., C.C.T.C. 01/19/2022 Clinical [facility] Medicine Ana P.A.-C. 01/17/2022 Clinical Gastroenterology and Ervin Mckeon Communication Hepatology Lilian, Ph.D. 01/16/2022 Clinical Transplant Fabrizio, Phone Contact; Communication Lilian Rowland, Appointment (LABs) Ph.D. 01/16/2022 Clinical Gastroenterology and Digna Campbell Hepatology Lilian Schaefer 01/15/2022 Clinical Transplant Quang, Phone Contact Communication Parris 01/15/2022 [facility] [place], Post Hosp ital Communication Medicine Ciara Johnson RSumaNSuma Follow-up 01/14/2022 Clinical Transplant Karin, Appointment (Oc tober Communication Adeline Gannon, follow up) MJules, Ph.D. 01/13/2022 Telemedicine Transplant Saraanoalexa, Moderate Or Sev ere Adeline Gannon, Use Disorder M.Jeri, Ph.D. (Dependence) Alcohol Cathleen, Remission (HCC) Elena Burgos (Primary Dx) 01/13/2022 Telemedicine Transplant Lambert, Cirrhosis Alcoh olic Joel Gannon (HCC) (Primary Dx) L.I.C.S.W., M.S.W. 01/13/2022 Clinical Gastroenterology and Digna Campbell Hepatology Lilian Schaefer 01/13/2022 Orders Only Social Work Joel Tan, L.I.C.S.W., M.S.W. 01/13/2022 Clinical Gastroenterology and Digna Campbell Communication Hepatdina Schaefer M.D. 01/09/2022 Hospital Encounter Jose Hepatic E ncephalopathy Without Coma (HCC) (Primary Dx); - Migue Llanes Jr., Deficiency Vi tamin A; 01/14/2022 Lilian Cirrhosis Alcoholic (HCC); Amy, Pain Low Back U nspecified; Reese Burgos, Decline Functio nal Status [R53.81 (ICD-10-CM)] Sree Up M.D. 01/08/2022 Clinical [facility], Communication Medicine Ana PSumaA.-C. 01/07/2022 Office Visit [facility], Hypertens ion Portal (HCC) (Primary Dx); Medicine Ana, Cirrhosis Alcoh olic (HCC); P.A.-C. Ascites; Pancreatitis Ch ronic (HCC); Pain Low Back M echanical 01/07/2022 Patient Self-Triage Symptom Assistant Speech Language Pathologist, Provider 01/06/2022 Clinical Gastroenterology and Felicita Spicer Communication Hepatology Patrica, LSumaP.N. 12/27/2021 Patient Self-Triage Symptom Assistant Speech Language Pathologist, Provider 12/25/2021 Clinical [facility], Communication Medicine Frances PerezA.-C. 12/21/2021 Emergency Emergency Medicine Gonzalez, Ascites ( Primary Dx) Ted Johnson M.D., Ph.D. Clifton Liu M.D. 12/19/2021 Emergency Emergency Medicine Gonzalez, Pain Back (Primary - Ted Johnson M.D., Dx) 12/20/2021 Ph.D. Migue Garcia Jr., M.D. 12/19/2021 Nurse Triage [facility], Back Pain Medicine Ben Johnson RGabby 12/18/2021 Orders Only Gastroenterology and Matthew Jerome, Mood Disorder (HCC) (Primary Dx); Hepatology Lilian [...] Spicer Communication Hepatology Patrica, LSumaPSumaN. 12/11/2021 Clinical [facility]eda Disabilit y Parking Communication Medicine Ana, Ashleigh P.A.-C. 12/10/2021 Office Visit Gastroenterology and Matthew Jerome, Cirrh osis Alcoholic (HCC) (Primary Dx); Hepatology JoshuaBLilian Staples Hypertension Portal (HCC); Thrombocytopeni a (HCC); Abnormal Liver Function Test; Deficiency Katy min A; Ascites Chronic ; Hepatic Encepha lopathy Without Coma (HCC) 12/04/2021 [facility] ( Primary Dx); Neeru Palma M.D. 12/04/2021 Clinical Gastroenterology and Jethro Communication Hepatdina Schaefer M.D. 12/04/2021 Clinical Gastroenterology and Jethro Communication Hepatdina Schaefer M.D. 12/04/2021 Clinical Gastroenterology and Ashley Morelos M.D. 12/04/2021 Documentation Gastroenterology and Elaine Morelos M.D. 12/04/2021 Clinical Gastroenterology and Ashley Morelos Hepatdina Schaefer M.D. 12/03/2021 Clinical [facility] [place], BIANKA / Disha eal Letter Communication Medicine Lilian Gee, M.S. 12/03/2021 Orders Only Ana Red, P.A.-C. 12/02/2021 Hospital Encounter Laboratory Medicine uLischantell Matthew Y, Cirrhosis Alcoholic (HCC); M.B.B.Lilian Stockton Hypertension Portal (HCC); Thrombocytopeni a (HCC); Abnormal Liver Function Test; Change Mental S tatus 12/02/2021 Office Visit [facility] Acute A nd Subacute Hepatic Failure Without Coma (HCC) (Primary Dx); Medicine Sunny hanley D.O. Pancreatitis Chronic (HCC); Prison Use O f Opiate Analgesic; Alcohol Use Uns pecified With Unspecified Alcohol Induced Disorder (HCC); Alcoholic Cirrh osis Of Liver Without Ascites (HCC); Ascites Chronic ; Insomnia; High Risk Medic ation 12/02/2021 [facility] Sina, Communication Medicine Lilian Gee, M.S. 12/02/2021 Clinical Pharmacy Be, Communication Jasmyne R 12/02/2021 [facility] Communication Medicine Sunny hanley D.O. 12/02/2021 Orders Only Ana Red P.A.-C. 12/02/2021 [facility] [place], Post Hosp ital Communication Medicine Ciara Johnson RSumaNSuma Follow-up 11/27/2021 Orders Only [facility], Solitario Gee M.D., M.S. 11/26/2021 Clinical [facility] Shannan Rand Communication Medicine MJules 11/26/2021 Clinical Gastroenterology and Matthew Jerome Communication Hepatology M.B.B.S., M.D. 11/26/2021 [facility] Orders Schroeder, Steatohepat itis Non Alcoholic (Primary Dx); Ervin Schaefer M.D. Unspecified Ci rrhosis Of Liver (HCC) 11/18/2021 Clinical Alina Carranza Communication R, R.N. 11/12/2021 Hospital Encounter Rosaura Sevilla (Primary Dx); [...] Grandfather Bradley Cespedes Hypertension Maternal Grandfather Bradley Cesepdes Arthritis Maternal Grandmother Desire Cespedes Asthma Maternal [...] you attend muslim or Patient refused 2021 taoism services? 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 Vital Signs Vital Sign Reading Time Taken Comments Blood Pressure 124/68 02/16/2022 6:15 AM CDT Pulse 120 02/16/2022 6:15 AM CDT Temperature 37.1 ??C (98.8 ??F) 02/16/2022 2:30 AM CDT Respiratory Rate 16 02/03/2022 4:22 PM CDT Oxygen Saturation 94% 02/16/2022 6:15 AM CDT Inhaled Oxygen Concentration - - Weight 61 kg (134 lb 7.7 oz) 02/11/2022 9:25 AM CDT Height 157.5 cm (5' 2.01) 02/11/2022 9:25 AM CDT Body Mass Index 24.59 02/11/2022 9:25 AM CDT Plan of Treatment Upcoming Encounters Date Type Specialty Care Team Description Telemedicine Transplant 2 Appointment Radiology Matthew Jerome 2 YTyrell, Lilian [address] [place] [phone] Appointment Gastroenterology demian Silver, 2 Hepatology Yue Burciaga M.D. [address] [place] [phone] Virtual Visit Transplant Matthew Jerome 2 YVikBGraeme, Lilian [address] [place] [phone] Office Visit Gastroenterology and Matthew Jerome 2 Hepatology Joshua RodriguezBSumaBGraeme, Lilian [address] [place] [phone] Appointment Radiology Matthew Jerome 2 Joshua RodriguezBSumaBGraeme, Lilian [address] [place] [phone] Hospital Gastroenterology and Matthew Jerome Cirrhos is Alcoholic (HCC) 2 Encounter Hepatology Y, M.B.B.S., M.D. [address] [place] [phone] Anesthesia Event Gastroenterology and Rl, 2 Hepatology Ervin Burgos M.D. [address] [place] [phone] Surgery Gastroenterology and Mousa, Matthew ESOPHAG OGASTRODUODENOSCOPY 2 Hepatology Tyrell Rodriguez M.D. 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 PRESS OPERATOR Hypertension Portal (HCC) Health Maintenance Due Date Last Done Comments Hepatitis A Vaccines (1 of 2 - 07/10/1991 Risk 2-dose series) Pneumococcal vaccine (0-64 years) 1996 (1 - PCV) Cervical Cancer Screening 02/28/2017 02/28/2014, 02/28/2014 COVID-19 Vaccine (3 - Booster for 06/10/2021 04/15/2021, Pfizer series) Influenza Vaccine (#1) 2022 03/07/2014, 02/26/2009, 02/26/2009, Additional history exists Abdominal Ultrasound 08/17/2022 02/16/2022, 02/01/2022, 11/25/2021, Additional history exists Creatinine Level 02/16/2023 02/16/2022, 02/12/2022, 02/02/2022, Additional history exists Potassium Level 02/16/2023 02/16/2022, 02/12/2022, 02/02/2022, Additional history exists Sodium Level 02/16/2023 02/16/2022, 02/12/2022, 02/02/2022, Additional history exists DTaP,Tdap,and Td Vaccines (7 - Td 03/07/2024 03/07/2014, , or Tdap) 05/26/1995, Additional history exists Hepatitis B Vaccines Completed 12/28/2000, 12/17/1997, 04/30/1997 HIV Screening Completed 01/25/2022, 09/30/2021 Depression Screening (Annual Completed 02/10/2022 PHQ-2) Medical Devices Implanted Type Area Auto Transmission Specialist Device Shelf Model / Identifier Expiration Serial / Date Lot Intrauterine Intrauterine N/A: Device Device Cervix Procedures Procedure Name Priority Date/Time Associated Comments Diagnosis CT ABDOMEN PELVIS WITH RAD - 02/16/2022 Resul ts for IV CONTRAST Semiurgent 4:15 AM CDT this procedure (Fast; most ED are in the patients; some results inpatients) section. DX CHEST AP OR PA AND RAD - 02/16/2022 Result s for LATERAL 2 VIEWS Semiurgent 3:55 AM CDT this procedu re (Fast; most ED are in the patients; some results inpatients) section. HUMAN CHORIONIC STAT 02/16/2022 Results for GONADOTROPIN (HCG), 3:00 AM CDT this pro cedure EDDI, are in the results section. PROTHROMBIN TIME (PT), P STAT 02/16/2022 Res ults for 3:00 AM CDT this procedure are in the results section. ETHANOL, S STAT 02/16/2022 Results for 3:00 AM CDT this procedure are in the results section. LIPASE, S/P STAT 02/16/2022 Results for 3:00 AM CDT this procedure are in the results section. HEPATIC FUNCTION PANEL, STAT 02/16/2022 Resu lts for S 3:00 AM CDT this procedure are in the results section. BASIC METABOLIC PANEL, STAT 02/16/2022 Resul ts for S/P 3:00 AM CDT this procedure are in the results section. TYPE AND SCREEN STAT 02/16/2022 Results for 3:00 AM CDT this procedure are in the results section. CBC WITH DIFFERENTIAL, B STAT 02/16/2022 Res ults for 3:00 AM CDT this procedure are in the results section. ETHYL GLUCURONIDE SCRN Routine 02/12/2022 Moderate Or Severe Results for W/REFLEX, U 10:29 AM CDT Use Disorder this procedure (Dependence) are in the Alcohol Remission results (HCC) section. CONFIRMED DRUG ABUSE Routine 02/12/2022 Moderate Or Severe R esults for PANEL, U 10:29 AM CDT Use Disorder this procedure (Dependence) are in the Alcohol Remission results (HCC) section. ETHYL GLUCURONIDE Routine 02/12/2022 Alcohol Moderate Result s for CONFIRMATION, U 10:29 AM CDT Or Severe Use this proced ure Disorder are in the (Dependence) results Uncomplicated section. (HCC) URIC ACID, S/P Routine 02/12/2022 Cirrhosis Results [...] results section. from Last [address] Abdomen Pelvis with IV Contrast (02/16/2022 4:15 AM CDT)Only the most recent of3 resultswithin the time period is included. Anatomical Region Laterality Modality Abdomen, Pelvis, Abdominal RST LOS, N/A Comp uted Tomography, Computed Abdominal ARZ LOS, Abdominal FLA LOS José Miguel ography Specimen (Source) Anatomical Collection Method Collection Time Re ceived Time Location / / Volume Laterality 02/16/2022 4:10 AM CDT Impressions 02/16/2022 4:39 AM CDT 1. No evidence of hematoma or active bleeding within the abdomen or pelvis. 2. Mild decrease in the now moderate vol ume ascites. Remainder is unchanged since 02/01/2022. 3. Cirrhotic morphology of the liver wit h evidence of portal hypertension including splenomegaly, upper abdominal varices and portal hyper tensive enteropathy. Narrative 02/16/2022 4:39 AM CDT EXAM: ??CT ABDOMEN PELVIS WITH IV CONTRAST COMPARISON: ??CT abdomen pelvis from 06/2021. FINDINGS: ??No evidence of hematoma or a ctive bleeding within the abdomen or pelvis. Since 02/01/2022, decrease in the now mo derate volume ascites. Mild decrease in size of the small right pleural effusion. Remainder is unc hanged. Normal caliber of the bowel and stomach. Cirrhotic morphology of the liver with evidence of portal hypertension including splenomegaly, upp er abdominal varices including paraesophageal, and portal hypertensive enteropathy. Pancreatic ada cifications. Diffuse anasarca. Degenerative changes of the spine with multiple compression deformit ies. IUD. Bibasilar atelectasis or scarring. Procedure Note Celia Banks M.D. - 02/16/2022Form atting of this note might be different from the original. EXAM: CT ABDOMEN PELVIS WITH IV CONTRAST COMPARISON: CT abdomen pelvis from 02/01. FINDINGS: No evidence of hematoma or act gerri bleeding within the abdomen or pelvis. Since 02/01/2022, decrease in the now mo derate volume ascites. Mild decrease in size of the small right pleural effusion. Remainder is unc hanged. Normal caliber of the bowel and stomach. Cirrhotic morphology of the liver with evidence of portal hypertension including splenomegaly, upp er abdominal varices including paraesophageal, and portal hypertensive enteropathy. Pancreatic ada cifications. Diffuse anasarca. Degenerative changes of the spine with multiple compression deformit ies. IUD. Bibasilar atelectasis or scarring. IMPRESSION: 1. No evidence of hematoma or active ble eding within the abdomen or pelvis. 2. Mild decrease in the now moderate vol ume ascites. Remainder is unchanged since 02/01/2022. 3. Cirrhotic morphology of the liver wit h evidence of portal hypertension including splenomegaly, upper abdominal varices and portal hyper tensive enteropathy. Familia Pacheco M.D. IMG CT PROCEDURES DX Chest AP or PA and Lateral 2 Views (02/16/2022 3:55 AM CDT)Only the most recent of2 resultswithin the time period is included. Anatomical Region Laterality Modality Chest, Thoracic RST LOS, Thoracic ARZ LOS, Thoracic N/A Digital Radiography FLA LOS Specimen (Source) Anatomical Collection Method Collection Time Re ceived Time Location / / Volume Laterality 02/16/2022 4:20 AM CDT Impressions 02/16/2022 5:18 AM CDT Since 02/01/2022, increased lung volumes. Decrease in the right pleural effusion. Persistent trace bilateral pleural effus ions with associated atelectasis. Prominence of pulmonary vasculature. Chest otherwise negative. Narrative 02/16/2022 5:18 AM CDT EXAM: ??DX CHEST AP OR PA AND LATERAL 2 VIEWS Procedure Note Celia Banks M.D. - 02/16/2022Form atting of this note might be different from the original. EXAM: DX CHEST AP OR PA AND LATERAL 2 EWS IMPRESSION: Since 02/01/2022, increased lung volumes . Decrease in the right pleural effusion. Persistent trace bilateral pleural effus ions with associated atelectasis. Prominence of pulmonary vasculature. Chest otherwise negative. Familia Pacheco M.D. IMG DIAGNOSTIC IMAGING PROCE PERCY Ethanol Level, Serum (02/16/2022 3:00 AM CDT) P athologist Signature Ethanol, S <10 <10 mg/dL 02/16/2022 3:49 DTL AM CDT Specimen Anatomical Collection Method Collection Time Receive d Time (Source) Location / / Volume Laterality Blood (Blood, 02/16/2022 3:00 AM 02/17/20 3:26 Venous) CDT AM CDT Familia Pacheco M.D. LAB BLOOD NON ADD-ON Performing Organization Address City/State/ZIP Code Phon e Number [facility] - [address] [place], [place] [address] [facility] [place] [address] [facility] [address] (ABNORMAL) Hepatic Function Panel (02/16/2022 3:00 AM CDT)Only the most recent of8 resultswithin the time period is included. Patholo gist Method Time Signature Bilirubin, Total, S 10.2 (H) <=1.2 02/16/2022 DTL mg/dL 3:49 AM CDT Bilirubin, Direct, S 4.2 (H) 0.0 - 0.3 02/16/2022 DTL mg/dL 3:49 AM CDT Aspartate 78 (H) 8 - 43 02/16/2022 DTL Aminotransferase U/L 3:49 AM CDT (AST), S Alanine 29 7 - 45 02/16/2022 DTL Aminotransferase U/L 3:49 AM CDT (ALT), S Alkaline 413 (H) 35 - 104 02/16/2022 DTL Phosphatase, S U/L 3:49 AM CDT Albumin, S 4.0 3.5 - 5.0 02/16/2022 DTL g/dL 3:49 AM CDT Protein, Total, S 5.6 (L) 6.3 - 7.9 02/16/2022 DTL g/dL 3:49 AM CDT Specimen Anatomical Collection Method Collection Time Receive d Time (Source) Location / / Volume Laterality Blood (Blood, 02/16/2022 3:00 AM 02/17/20 3:26 Venous) CDT AM CDT Familia Pacheco M.D. LAB BLOOD ADD-ON Performing Organization Address City/State/ZIP Code Phon e Number [facility] - [address] [place] [address] [facility] [place] [address] [facility] [address] [facility] (ABNORMAL) Prothrombin Time (PT) (02/16/2022 3:00 AM CDT)Only the most recent of 11 resultswithin the time period is included. [facility] gist Method Time Signature Prothrombin 30.0 (H) 9.4 - 12.5 02/16/2022 [facility] Time, P sec 3:14 AM CDT INR 2.7 0.9 - 1.1 02/16/2022 STMA 3:14 AM CDT Comment: ----ADDITIONAL INFORMATION---- Standard intensity warfarin therapeutic range: 2.0 to 3.0 ?? High intensity warfarin therapeutic rang e: 2.5 to 3.5 Specimen Anatomical Collection Method Collection Time Receive d Time (Source) Location / / Volume Laterality Blood (Blood, 02/16/2022 3:00 AM 02/17/20 3:07 Venous) CDT AM CDT Familia Pacheco M.D. LAB BLOOD ADD-ON Performing Organization Address City/State/ZIP Code Phon e Number [facility] - [address] [place], [place] [address] [facility] [place] [address] [facility] ([facility]) [address] (ABNORMAL) CBC with Differential, Blood (02/16/2022 3:00 AM CDT)Only the most recent of23 resultswithin the time period is included. [facility] Method Time Signature Hemoglobin 8.5 (L) 11.6 - 02/16/2022 STMA 15.0 g/dL 3:12 AM CDT Hematocrit 24.9 (L) 35.5 - 02/16/2022 STMA 44.9 % 3:12 AM CDT Erythrocytes 2.41 (L) 3.92 - 02/16/2022 STMA 5.13 3:12 AM CDT x10(12)/L MCV 103.3 (H) 78.2 - 02/16/2022 STMA 97.9 fL 3:12 AM CDT RBC Distrib Width 20.9 (H) 12.2 - 02/16/2022 STMA 16.1 % 3:12 AM CDT Platelet Count 54 (L) 157 - 371 02/16/2022 STMA x10(9)/L 3:12 AM CDT Leukocytes 6.1 3.4 - 9.6 02/16/2022 ST[facility] x10(9)/L 3:12 AM CDT Neutrophils 4.40 1.56 - 02/16/2022 STMA 6.45 3:12 AM CDT x10(9)/L Lymphocytes 1.03 0.95 - 02/16/2022 STMA 3.07 3:12 AM CDT x10(9)/L Monocytes 0.57 0.26 - 02/16/2022 ST[facility] 0.81 3:12 AM CDT x10(9)/L Eosinophils 0.08 0.03 - 02/16/2022 STMA 0.48 3:12 AM CDT x10(9)/L Basophils <0.03 0.01 - 02/16/2022 STMA 0.08 3:12 AM CDT x10(9)/L Specimen Anatomical Collection Method Collection Time Receive d Time (Source) Location / / Volume Laterality Blood (Blood, 02/16/2022 3:00 AM 02/17/20 3:07 Venous) CDT AM CDT Familia Pacheco M.D. LAB BLOOD ADD-ON Performing Organization Address [facility] Phon e Number [facility] - [address] [place], [place] [address] [place] [address] [facility] [address] [facility] Type and Screen (with reflex Antibody ID) (02/16/2022 3:00 AM CDT)Only the most recent of5 resultswithin the time period is included. Patholo gist Method Time Signature ABORh B Pos Not 02/16/2022 STRM applicable 3:29 AM CDT Antibody Negative Negative 02/16/2022 STRM Screen 3:43 AM CDT Type & Screen 02/19/2022 02/16/2022 STRM Expiration 23:59 3:29 AM CDT Testing Jcarlos DEFAULT 02/16/2022 STRM Location 3:08 AM CDT Specimen Anatomical Collection Method Collection Time Receive d Time (Source) Location / / Volume Laterality Blood (Blood, 02/16/2022 3:00 AM 02/17/20 3:08 Venous) CDT AM CDT Familia Pacheco M.D. LAB BLOOD BANK TEST ORDERABL ES Performing Organization Address [facility] Phon e Number [facility] - [address] [place], [place] [address] [facility] [place] [address] [facility] 200 [facility] hCG (Human Chorionic Gonadotropin), Quantitative, (02/16/2022 3:00 AM CDT)Only the most recent of5 resultswithin the time period is included. P athologist Signature HCG, 0.5 <5 IU/L 02/16/2022 STMA Quantitative, 3:41 AM CDT , P Specimen Anatomical Collection Method Collection Time Receive d Time (Source) Location / / Volume Laterality Blood (Blood, 02/16/2022 3:00 AM 02/17/20 3:29 Venous) CDT AM CDT Jessy Knight M.D., M.S. LAB BLOOD ADD-ON Performing Organization Address City/[facility] Phon e Number [facility] - [address] [place] [address] 05 [facility] [place] [address] Laboratories-[address] Lipase (02/16/2022 3:00 AM CDT)Only the most recent of5 resultswithin the time period is included. athologist Signature Lipase, S 25 13 - 60 U/L 02/16/2022 3:49 DTL AM CDT Specimen Anatomical Collection Method Collection Time Receive d Time (Source) Location / / Volume Laterality Blood (Blood, 02/16/2022 3:00 AM 02/17/20 3:26 Venous) CDT AM CDT Familia Pacheco M.D. LAB BLOOD ADD-ON Performing Organization Address [facility] Phon e Number [facility] - [address] [place] [address] 05 [place] [address] [address] (ABNORMAL) Basic Metabolic Panel (02/16/2022 3:00 AM CDT)Only the most recent of 20 resultswithin the time period is included. athologist Signature Potassium, P 3.9 3.6 - 5.2 02/16/2022 STMA mmol/L 3:28 AM CDT Sodium, P 137 135 - 145 02/16/2022 STMA mmol/L 3:28 AM CDT Chloride, P 105 98 - 107 02/16/2022 STMA mmol/L 3:28 AM CDT Bicarbonate, P 21 (L) 22 - 29 02/16/2022 [facility] mmol/L 3:28 AM CDT Anion Gap, P 11 7 - 15 02/16/2022 STMA 3:28 AM CDT BUN (Blood Urea 19 6 - 21 02/16/2022 STMA Nitrogen), P mg/dL 3:28 AM CDT Creatinine 0.75 0.59 - 02/16/2022 STMA 1.04 mg/dL 3:28 AM CDT Estimated GFR >90 >=60 02/16/2022 [facility] (eGFR) mL/min/BSA 3:28 AM CDT Comment: Estimated GFR calculated using the 2020 CKD_EPI creatinine equation. Calcium, Total, P 9.1 8.6 - 10.0 mg/dL 02/16/2022 3:28 AM CDT [facility] Glucose, P 146 (H) 70 - 140 mg/dL 02/16/2022 3:28 AM CDT S TMA Specimen Anatomical Collection Method Collection Time Receive d Time (Source) Location / / Volume Laterality Blood (Blood, 02/16/2022 3:00 AM 02/17/20 3:07 Venous) CDT AM CDT Familia Pacheco M.D. LAB BLOOD ADD-ON Performing Organization Address [facility] Phon e Number [facility] - [facility] [address] [place], [place] [address] [address] [place], [place] [address] [place] [address] Ethyl Glucuronide Screen with Reflex, Urine (02/12/2022 10:29 AM CDT) [facility] Method Time Signature Ethyl Negative Cutoff: 02/12/2022 [facility] Glucuronide Scrn 500 ng/mL 2:35 PM CDT w/Reflex, U Comment: ----ADDITIONAL INFORMATION---- This test was developed and its performa nce characteristics determined by [facility] in a manner consistent with CLIA [...] Performing Organization Address City/[facility] Phon e Number [facility] [place] [address] [place], [place] [address] [facility] [place] [address] [facility] [address] [place] [address] Dr. [place] Ethyl Glucuronide Confirmation, Random, Urine (02/12/2022 10:29 AM CDT)Only the most recent of2 resultswithin the time period is included. [facility] Method [place] Signature Ethyl Glucuronide Negative Cutoff: 02/15/2022 [facility] Confirmation, U 250 ng/mL 7:16 AM CDT Ethyl Sulfate Negative Cutoff: 02/15/2022 [facility] 100 ng/mL 7:16 AM CDT Ethyl Gluc/Sulfate Negative. 02/15/2022 [facility] Interpretation 7:16 AM CDT Comment: ----ADDITIONAL INFORMATION---- This report is intended for use in clini ada monitoring and management of patients. ??It is not intended for use i n employment-related testing. This test was developed and its performa nce characteristics determined by [facility] in a manner consistent with CLIA requirements. This test has not been cleared or approved by the [place] and Drug Administration. Specimen Anatomical Collection Method Collection Time Receive d Time (Source) Location / / Volume Laterality Urine (Urine, 02/12/2022 10:29 02/12/2022 Midstream) AM CDT 12:55 PM CDT Adeline Frazier M.D., Ph.D. LAB URINE ORDERABLES Performing Organization Address City/State/ZIP Code Phon e Number [facility] [address] [place] [address] SUPPORT [place], [place] [id number] [place] [address] [place] Drug Abuse Survey with Confirmation, Urine (02/12/2022 10:29 AM CDT)Only the most recent of2 resultswithin the time period is included. [facility] Method Time Signature Alcohol Negative Cutoff: [...] 50 ng/mL 02/12/2022 3 :10 PM CDT [facility] Comment: This immunoassay targets delta-9 tetrahy [...] [address] [place], [place] [address] [place] [id number] [place] [address] [place] AFP (Alpha-Fetoprotein), Tumor Marker (02/12/2022 10:16 AM CDT) athologist Signature Alpha-Fetoprote 7.9 ng/mL 02/12/2022 [facility] in, Tumor 3:41 PM CDT Marker, [...] method is an immunoenzymatic assay manufactured by [employer]. and is tested on the [employer] DxI 800. Values obtained with different assay [...] Performing Organization Address City/[facility] Phon e Number [facility] [address] [place] [address] 05 [place], [place] [address] [place] [address] Dr. [place] (ABNORMAL) CRP (C-Reactive Protein) (02/12/2022 10:16 AM CDT)Only the most recent of2 resultswithin the time period is included. athologist Signature C-Reactive 12.1 (H) <=8.0 mg/L 02/12/2022 DT Protein (CRP), 11:18 AM CDT S Specimen Anatomical Collection Method Collection Time Receive d Time (Source) Location / / Volume Laterality Blood (Blood, 02/12/2022 10:16 02/12/2022 Venous) AM CDT 10:57 AM CDT Matthew Santillan M.D. LAB BLOOD ADD-ON Performing Organization Address City/[facility] Phon e Number [facility] - [address] [place], [place] [address] Uric Acid (02/12/2022 10:16 AM CDT) athologist Signature Uric Acid, S 5.4 2.7 - 6.1 02/12/2022 DTL mg/dL 11:15 AM CDT Specimen Anatomical Collection Method Collection Time Receive d Time (Source) Location / / Volume Laterality Blood (Blood, 02/12/2022 10:16 02/12/2022 Venous) AM CDT 10:57 AM CDT Matthew Santillan M.D. LAB BLOOD ADD-ON Performing Organization Address City/[facility] Phon e Number [facility] - [address] (ABNORMAL) Bilirubin, Direct (02/12/2022 10:16 AM [...] Performing Organization Address City/[facility] Phon e Number [facility] - [address] (ABNORMAL) Comprehensive Metabolic Panel (02/12/2022 10:16 [...] [facility] [address] [place], [place] [address] [facility] [place] [address] [facility] [address] MR Lumbar Spine wo [...] System IMG MRI PROCEDURES Performing Organization Address City/[facility]/ZIP Code Phon e Number SUDARSHAN HEATON NA [...] System IMG CT PROCEDURES Performing Organization Address City/[facility]/RUST Code Phon e Number IIMS HEATON NA US Paracentesis with Imaging Guidance [...] replaced per ordering provider request. EP Matthew Santillan, Lilian COOLG US PROCEDURES Cell Count and Differential, Body Fluid (02/05/2022 3:17 PM CDT)Only the most recent of6 resultswithin the time period is included. [facility] Method Time Signature Fluid Type Peritoneal- 02/05/2022 [facility] Paracentesi 4:19 PM CDT s Gross Serous 02/05/2022 DH Appearance 4:19 PM CDT Total Nucleated 85 /mcL 02/05/2022 DHPM Cells 4:19 PM CDT Comment: ----REFERENCE VALUE---- Synovial: <150 /mcL Peritoneal: <500 /mcL Pleural: <500 /mcL Pericardial: <500 /mcL ----ADDITIONAL INFORMATION---- This test has been modified from the man ufacturer's instructions. Its performance characteri stics were determined by [facility] in a manner co nsistent with [...] Are: Mesothelial cells 02/05/2022 8:38 PM CDT [facility] Comment No blasts or malignant cells seen. 02/05 8:38 PM CDT DHPM Reviewed by: Tech 02/05/2022 8:38 PM CDT [facility] Specimen Anatomical Collection Method Collection Time Receive d Time (Source) Location / / Volume Laterality Fluid 02/05/2022 3:17 PM 3:54 (Peritoneal CDT PM CDT Fluid) Matthew Santillan M.D. LAB BODY FLUIDS AND STOOLS ORDERABLES Performing Organization Address City/State/ZIP Code Phon e Number [facility] - [address] [place], [place] [address] [place] [address] [facility] [address] [facility] Gram Stain (02/05/2022 3:17 PM CDT)Only [...] MICROBIOLOGY - GENERAL ORDERABLES Performing Organization Address City/[facility]/RUST Code Phon e Number [facility] - [address] CK (Creatine Kinase) (02/02/2022 6:14 AM CDT) P athologist Signature Creatine Kinase 29 26 - 192 02/02/2022 DTL (CK), S U/L 7:44 AM CDT Specimen Anatomical Collection Method Collection Time Receive d Time (Source) Location / / Volume Laterality Blood (Blood, 02/02/2022 6:14 AM 02/03/20 22 7:21 Venous) CDT AM CDT Darrick DanielSSuma LAB BLOOD ADD-ON Performing Organization Address City/State/RUST Code Phon e Number [facility] - [address] Chest Angiogram and Pulmonary Arteries [...] 4 resultswithin the time period is included. [facility] Method Time Signature Glucose, 100 (A) Negative 02/01/2022 [facility] POCT, U mg/dL 1:44 PM CDT Ketone, POCT, Trace (A) Negative 02/01/2022 [facility] U mg/dL 1:44 PM CDT Specific 1.020 1.005 - 02/01/2022 [facility] [place], 1.030 1:44 PM CDT POCT, U Blood, [...] - DEVICE Performing Organization Address City/[facility]/ZIP Code Phon e Number POC [facility] [address] [place] [address] [place] [address] [facility] [address] [facility] Osmolality, Urine (02/01/2022 1:37 PM CDT)Only [...] P.A.-C. LAB URINE ORDERABLES Performing Organization Address City/[facility]/ZIP Code Phon e Number [facility] - [address] [place], [place] [address] [facility] [place] [address] [facility] [address] (ABNORMAL) Dipstick, Urine (02/01/2022 [...] P.A.-C. LAB URINE ORDERABLES Performing Organization Address City/[facility] Phon e Number [address] pH, Random, Urine (02/01/2022 1:37 PM CDT)Only the most recent of5 resultswithin the time period is included. P athologist Signature pH, Random, U 5.9 4.5 - 8.0 02/01/2022 DTL 8:41 PM CDT Specimen Anatomical Collection Method Collection Time Receive d Time (Source) Location / / Volume Laterality Urine 02/01/2022 1:37 PM 2 2:09 CDT PM CDT Paty LaguerreCSuma LAB URINE ORDERABLES Performing Organization Address City/[facility] Phon e Number [address] (ABNORMAL) Microscopic Manual (02/01/2022 1:37 PM [...] P.A.-C. LAB URINE ORDERABLES Performing Organization Address City/[facility] Phon e Number [facility] - [address] (ABNORMAL) Gram Stain, Urine (02/01/2022 1:37 PM CDT)Only the most recent of2 resultswithin the time period is included. [facility] Method Time Signature Source Urine, Urine, 02/01/2022 DTL Midstream 2:09 PM CDT Gram Stain, U Positive (A) Negative 02/01/2022 DTL 2:36 PM CDT Comment: Many Gram-positive cocci Specimen Anatomical Collection Method Collection Time Receive d Time (Source) Location / / Volume Laterality Urine 02/01/2022 1:37 PM 2 2:08 CDT PM CDT Paty Goldberg P.A.-C. LAB URINE ORDERABLES Performing Organization Address City/[facility] Phon e Number [facility] - [address] [place], [place] [address] [facility] [address] (ABNORMAL) Urinalysis with Microscopic: Urine, Midstream (02/01/2022 1:37 PM CDT)Only the most recent of7 resultswithin the time period is included. [facility] Method Time Signature Source Urine, Urine, 02/01/2022 [...] P.A.-C. LAB URINE ORDERABLES Performing Organization Address City/[facility] Phon e Number [facility] - [address] [place] [address] [place] [address] Lactate (02/01/2022 1:32 PM CDT)Only the most [...] Performing Organization Address City/[facility] Phon e Number [address] ST[place] [address] Bacteria / Raudel Culture, Blood # 2 [...] GENERAL O RDERABLES Performing Organization Address [facility] Phon e Number [facility] - [address] [place], [place] [address] [facility] [place] [address] Laboratories-[address] Venous Blood Gas and Electrolytes CG8+, [...] ORDERABLES - DEVICE Performing Organization Address [facility] Phon e Number [facility] - [address] [place], [place] [address] [facility] [place] [address] Laboratories-[address] Lactate, POCT (02/01/2022 10:36 AM CDT)Only the most recent of6 resultswithin the time period is included. Analysis Performed At Patho logist Time Signature Lactate, POCT Collected DEFAULT 02/01/2022 SMLX 10:36 AM CDT Specimen Anatomical Collection Method Collection Time Receive d Time (Source) Location / / Volume Laterality Blood (Blood, 02/01/2022 10:36 02/01/2022 Venous) AM CDT 10:36 AM CDT Paty LaguerreC. LAB POCT ORDERABLES - DEVICE Performing Organization Address City/[facility]/ZIP Code Phon e Number [facility] - [address] [place], [place] [address] [facility] [place] [address] (ABNORMAL) Ammonia (02/01/2022 10:34 AM CDT)Only the most recent of3 results within the time period is included. athologist Signature Ammonia, P 68 (H) <=30 02/01/2022 [facility] mcmol/L 11:32 AM CDT Specimen Anatomical Collection Method Collection Time Receive d Time (Source) Location / / Volume Laterality Blood (Blood, 02/01/2022 10:34 02/01/2022 Venous) AM CDT 10:59 AM CDT Paty Goldberg P.A.-C. LAB BLOOD NON ADD-ON Performing Organization Address City/[facility]/ZIP Code Phon e Number [facility] - [address] [place] [address] 05 [place] [address] ECG 12 Lead (02/01/2022 10:22 AM CDT)Only the most recent of4 resultswithin the time period is included. athologist Signature Ventricular Rate 91 BPM MUSE ECG/Min [place] Interval 152 ms MUSE QRSD Interval 86 ms MUSE QT Interval 398 ms MUSE QTC Interval 489 ms MUSE P [place] -3 degrees MUSE R [place] 16 degrees MUSE T Wave [place] 5 degrees MUSE Specimen Anatomical Collection Method [...] System IMG CT PROCEDURES Performing Organization Address City/[facility]/ZIP Code Phon e Number IIMS IIMS NA (ABNORMAL) Hematocrit (01/28/2022 1:36 PM CDT)Only the most recent of2 results within the time period is included. P athologist Signature Hematocrit 22.0 (L) 35.5 - 44.9 01/28/2022 [facility] % 2:10 PM CDT Specimen Anatomical Collection Method Collection Time Receive d Time (Source) Location / / Volume Laterality Blood (Blood, 01/28/2022 1:36 PM 01/29/20 22 2:08 Venous) CDT PM CDT Yue Silver M.D. LAB BLOOD ADD-ON Performing Organization Address City/State/ZIP Code Phon e Number [facility] - [address] [place], [place] [address] [place] [address] [facility] [address] [place] Lower Extremity Veins [...] man agement can be found on the [employer] site. Link [email or web address] Procedure Note Migue Talavera M.D. - 01/28/2022Form [...] man agement can be found on the [employer] site. Link [email or web address] IMPRESSION: 1. Negative for acute DVT within [...] Number [facility] - [address] [place], [place] [address] [facility] [place] [address] [facility] [address] [facility] (ABNORMAL) CBC without Differential (01/28/2022 5:28 AM CDT)Only the most recent of8 resultswithin the time period is included. [facility] gist Method Time Signature Hemoglobin 7.4 (L) [...] Organization Address City/[facility]/ZIP [facility] Phon e Number [facility] - [address] [place] [address] 05 [facility] [place] [address] Laboratories[address] (ABNORMAL) PT-Fibrinogen (01/26/2022 6:58 PM CDT) P athologist Signature PT-Fibrinogen, 241 (L) 261 - 595 01/27/2022 DTL P mg/dL 9:36 AM CDT Specimen Anatomical Collection Method Collection Time Receive d Time (Source) Location / / Volume Laterality Blood 01/26/2022 6:58 PM 7:12 CDT AM CDT Darrick Santillan LAB BLOOD NON ADD-ON Performing Organization Address City/[facility] Phon e Number [facility] - [address] [address] [address] (ABNORMAL) DIC/ICF Profile (01/26/2022 6:58 PM [...] Its performance characteri stics were determined by [facility] in a manner co nsistent with [...] 01/28/20 7:12 Venous) CDT AM CDT Narrative [facility] - [employer] [facility] - 01/27/2022 5:26 PM CDT Specimen Information: Specimen ID: [id number] Specimen Type: Blood Specimen Collection Start Date: 01/27/20 ??6:58 PM Specimen Received Date: 01/27/2022 ??7:1 2 AM Specimen ID: [id number] Specimen Type: Blood Specimen Collection Start Date: 01/27/20 ??6:58 PM Specimen Received Date: 01/27/2022 ??7:1 2 AM Specimen ID: [id number] Specimen Type: Blood Specimen Collection Start Date: 01/27/20 ??6:58 PM Specimen Received Date: 01/27/2022 ??7:1 2 AM Specimen ID: [id number] Specimen Type: Blood Specimen Collection Start Date: 01/27/20 ??6:58 PM Specimen Received Date: 01/27/2022 ??7:1 2 AM Specimen ID: [id number] Specimen Type: Blood Specimen Collection Start Date: 01/27/20 ??6:58 PM Specimen Received Date: 01/27/2022 ??7:1 2 AM Darrick Santillan LAB BLOOD NON ADD-ON Performing Organization Address City/State/ZIP Code Phon e Number [facility] - [address] [place] [address] 05 [place] [address] [facility] [facility] ([facility]) 200 [facility] (ABNORMAL) Coag Factor X Assay, P (01/26/2022 6:58 PM CDT) athologist Signature Coag Factor X 29 (L) 70 - 150 % 01/27/2022 DT Assay, P 12:19 PM CDT Comment: ----ADDITIONAL INFORMATION---- This test has been modified from the [facility] hospitals[facility]'s instructions. Its performance characteri stics were determined by [facility] in a manner co nsistent with CLIA requirements. This test has not bee n cleared or approved by the U.S. Food and Drug Admin istration. Specimen Anatomical Collection Method Collection Time Receive d Time (Source) Location / / Volume Laterality Blood 01/26/2022 6:58 PM 2 CDT 11:30 AM CDT Darrick Santillan LAB BLOOD ADD-ON Performing Organization Address City/[facility]/RUST Code Phon e Number [facility] - [address] [address] 05 [place] [address] Laboratories-[address] Reptilase Time, Plasma (01/26/2022 6:58 PM CDT) athologist Signature Reptilase Time, 21.0 14.0 - 23.9 01/27/2022 DT P sec 11:03 AM CDT Comment: ----ADDITIONAL INFORMATION---- This test has been modified from the [facility]'s instructions. Its performance characteri stics were determined by [facility] in a manner co nsistent with CLIA requirements. This test has not bee n cleared or approved by the U.S. Food and Drug Admin istration. Specimen Anatomical Collection Method Collection Time Receive d Time (Source) Location / / Volume Laterality Blood 01/26/2022 6:58 PM 2 7:12 CDT AM CDT Darrick Santillan LAB BLOOD ADD-ON Performing Organization Address City/[facility]/RUST Code Phon e Number [facility] [address] (ABNORMAL) Soluble Fibrin Monomer (01/26/2022 6:58 PM CDT) athologist Signature Soluble Fibrin 165 (H) <=8 mcg/mL 01/27/2022 DTL Monomer 10:57 AM CDT Comment: ----ADDITIONAL INFORMATION---- This test was developed and its performa nce characteristics determined by [facility] in a manner co nsistent with CLIA requirements. This test has not bee n cleared or approved by the U.S. Food and Drug Admin istration. Specimen Anatomical Collection Method Collection Time Receive d Time (Source) Location / / Volume Laterality Blood 01/26/2022 6:58 PM 2 7:12 CDT AM CDT Darrick DanielS. LAB BLOOD NON ADD-ON Performing Organization Address City/[facility] Phon e Number [address] APTT Mix 1:1 (01/26/2022 6:58 PM CDT) athologist Signature APTT Mix 1:1 28 25 - 37 sec 01/27/2022 DTL 11:04 AM CDT Comment: ----ADDITIONAL INFORMATION---- This test has been modified from the doug last's instructions. Its performance characteri stics were determined by [facility] in a manner co nsistent with CLIA requirements. This test has not bee n cleared or approved by the U.S. Food and Drug Admin istration. Specimen Anatomical Collection Method Collection Time Receive d Time (Source) Location / / Volume Laterality Blood 01/26/2022 6:58 PM 2 7:12 CDT AM CDT Darrick DanielS. LAB BLOOD ADD-ON Performing Organization Address City/[facility]/ZIP [facility] Phon e Number [address] PT Mix 1:1 (01/26/2022 6:58 PM CDT) athologist [facility] PT Mix 1:1 11.8 9.4 - 12.5 01/27/2022 DTL sec 11:04 AM CDT Comment: ----ADDITIONAL INFORMATION---- This test has been modified from the man ufacturer's instructions. Its performance characteri stics were determined by [facility] in a manner co nsistent with CLIA requirements. This test has not bee n cleared or approved by the U.S. Food and Drug Admin istration. Specimen Anatomical Collection Method Collection Time Receive d Time (Source) Location / / Volume Laterality Blood 01/26/2022 6:58 PM 2 7:12 CDT AM CDT Darrick DanielSSuma LAB BLOOD ADD-ON Performing Organization Address City/State/ZIP Code Phon e Number [address] [place], [place] [id number] [place] [address] Dilute Russells Viper Venom Time (DRVVT) (01/26/2022 6:58 PM CDT) [facility] DRV[facility] Screen 0.85 <1.20 ratio 01/27/2022 DTL Ratio 11:04 AM CDT Specimen Anatomical Collection Method Collection Time Receive d Time (Source) Location / / Volume Laterality Blood 01/26/2022 6:58 PM 2 7:12 CDT AM CDT Darrick DanielS. LAB BLOOD ADD-ON Performing Organization Address City/State/ZIP Code Phon e Number [address] (ABNORMAL) Coagulation Factor XII Activity Assay (01/26/2022 6:58 PM CDT) [facility] Coag Factor XII 32 (L) 55 - 180 % 01/27/2022 DTL Assay, P 12:47 PM CDT Comment: ----ADDITIONAL INFORMATION---- This test has been modified from the [place] Mintigoacturer's instructions. Its performance characteri stics were determined by [facility] in a manner co nsistent with CLIA requirements. This test has not bee n cleared or approved by the U.S. Food and Drug Admin istration. Specimen Anatomical Collection Method Collection Time Receive d Time (Source) Location / / Volume Laterality Blood 01/26/2022 6:58 PM 2 CDT 11:30 AM CDT Darrick Santoyo.SSuma LAB BLOOD ADD-ON Performing Organization Address City/[facility] Phon e Number [facility] - [address] [place] [address] (ABNORMAL) Coagulation Factor XI Activity Assay (01/26/2022 6:58 PM CDT) athologist Signature Coag Factor XI 18 (L) 55 - 150 % 01/27/2022 DTL Assay, P 12:47 PM CDT Comment: ----ADDITIONAL INFORMATION---- This test has been modified from the [place] ufacturer's instructions. Its performance characteri stics were determined by [facility] in a manner co nsistent with CLIA requirements. This test has not bee n cleared or approved by the U.S. Food and Drug Admin istration. Specimen Anatomical Collection Method Collection Time Receive d Time (Source) Location / / Volume Laterality Blood 01/26/2022 6:58 PM 2 CDT 11:30 AM CDT Darrick CheryB.S. LAB BLOOD ADD-ON Performing Organization Address City/[facility] Phon e Number [facility] - [address] [place] [address] [place] [address] [address] (ABNORMAL) Coagulation Factor IX Activity Assay (01/26/2022 6:58 PM CDT) athologist Signature Coag Factor IX 29 (L) 65 - 140 % 01/27/2022 DTL Assay, P 12:47 PM CDT Comment: ----ADDITIONAL INFORMATION---- This test has been modified from the man ufacturer's instructions. Its performance characteri stics were determined by [facility] in a manner co nsistent with CLIA requirements. This test has not bee n cleared or approved by the U.S. Food and Drug Admin istration. Specimen Anatomical Collection Method Collection Time Receive d Time (Source) Location / / Volume Laterality Blood 01/26/2022 6:58 PM 2 CDT 11:30 AM CDT Darrick Santoyo.S. LAB BLOOD ADD-ON Performing Organization Address City/[facility] Phon e Number [facility] - [address] Coagulation Factor VIII Activity Assay (01/26/2022 6:58 PM CDT) athologist Signature Coag Factor 93 55 - 200 % 01/27/2022 DTL VIII Activity 12:19 PM CDT Assay, P Comment: ----ADDITIONAL INFORMATION---- This test has been modified from the [place] ufacturer's instructions. Its performance characteri stics were determined by [facility] in a manner co nsistent with CLIA requirements. This test has not bee n cleared or approved by the U.S. Food and Drug Admin istration. Specimen Anatomical Collection Method Collection Time Receive d Time (Source) Location / / Volume Laterality Blood 01/26/2022 6:58 PM 2 CDT 11:30 AM CDT Darrick CheryB.S. LAB BLOOD ADD-ON Performing Organization Address City/[facility] Phon e Number [facility] - [address] (ABNORMAL) Coagulation Factor VII Activity Assay (01/26/2022 6:58 PM CDT) athologist Signature Coag Factor VII 13 (L) 65 - 180 % 01/27/2022 DTL Assay, P 12:19 PM CDT Comment: ----ADDITIONAL INFORMATION---- This test has been modified from the [place] ufacturer's instructions. Its performance characteri stics were determined by [facility] in a manner co nsistent with CLIA requirements. This test has not bee n cleared or approved by the U.S. Food and Drug Admin istration. Specimen Anatomical Collection Method Collection Time Receive d Time (Source) Location / / Volume Laterality Blood 01/26/2022 6:58 PM 2 CDT 11:30 AM CDT Darrick Santoyo.S. LAB BLOOD ADD-ON Performing Organization Address City/[facility] Phon e Number [facility] - [address] (ABNORMAL) Coagulation Factor V Activity Assay (01/26/2022 6:58 PM CDT) athologist Signature Coag Factor V 18 (L) 70 - 165 % 01/27/2022 DTL Assay, P 12:19 PM CDT Comment: ----ADDITIONAL INFORMATION---- This test has been modified from the [place] ufacturer's instructions. Its performance characteri stics were determined by [facility] in a manner co nsistent with CLIA requirements. This test has not bee n cleared or approved by the U.S. Food and Drug Admin istration. Specimen Anatomical Collection Method Collection Time Receive d Time (Source) Location / / Volume Laterality Blood 01/26/2022 6:58 PM 2 CDT 11:30 AM CDT Darrick CheryB.S. LAB BLOOD ADD-ON Performing Organization Address City/State/RUST Code Phon e Number [facility] - [address] [place] [address] (ABNORMAL) Coagulation Factor II Activity Assay (01/26/2022 6:58 PM CDT) athologist Signature Coag Factor II 28 (L) 75 - 145 % 01/27/2022 DTL Assay, P 12:19 PM CDT Comment: ----ADDITIONAL INFORMATION---- This test has been modified from the man ufacturer's instructions. Its performance characteri stics were determined by [facility] in a manner co nsistent with CLIA requirements. This test has not bee n cleared or approved by the U.S. Food and Drug Admin istration. Specimen Anatomical Collection Method Collection Time Receive d Time (Source) Location / / Volume Laterality Blood 01/26/2022 6:58 PM CDT 11:30 AM CDT Darrick DanielSSuma LAB BLOOD ADD-ON Performing Organization Address City/[facility]/ZIP Code Phon e Number [facility] - [address] [place], [place] [address] 05 [place], [place] [address] [place] [address]-[facility]) [address] [facility] (ABNORMAL) Copper (01/26/2022 6:57 PM CDT) athologist Signature Copper, S 58 (L) 77 - 206 01/27/2022 SDSC mcg/dL 11:02 AM CDT Comment: ----ADDITIONAL INFORMATION---- This test was developed and its performa nce characteristics determined by [facility] in a manner consistent with CLIA [...] Code Phon e Number [facility] [address] [place], [place] [address] [facility] [place] [address] [facility] [address] [place] Zinc (01/26/2022 6:57 PM CDT) P athologist Signature Zinc, S 66 60 - 106 01/27/2022 SDSC mcg/dL 11:02 AM CDT Comment: ----ADDITIONAL INFORMATION---- This test was developed and its performa nce characteristics determined by [facility] in a manner consistent with CLIA [...] [address] [place], [place] [address] [place] [address] [place] [address] [place] LDA ANE ENDOTRACHEAL AIRWAY (01/26/2022 [...] Airway event: no complications Gildardo Hickey APRN, WINEMAKER, DNAP ANESTHESIA ORDERABLES Upper GI endoscopy-Gastroenterology Image Exam (01/26/2022 3:20 PM CDT)Only the most recent of2 resultswithin the time period is included. Specimen (Source) Anatomical Location Collection Method / Collectio n Time Received Time / Laterality Volume Narrative [facility] - 01/26/2022 10:57 PM CDT This order has been created and auto-finalized to support the import of images acquired without order. The clini ada documentation to support these images can be found on the encounter angelina t produced images. Provider Not In System IMG NON RAD IMAGING PROCEDUR ES Performing Organization Address City/State/ZIP Code Phon e Number [facility] NA Upper GI Endoscopy (01/26/2022 3:18 PM CDT) Specimen (Source) Anatomical Collection Method Collection Time Re ceived Time Location / / Volume Laterality 01/26/2022 3:18 PM CDT Impressions [facility] - 01/26/2022 10:50 PM CDT Post-op Diagnoses: ? - Large (> 5 mm) esophageal varic es with no bleeding and no stigmata of ? recent bleeding. Banded x 6. ? - Portal hypertensive gastropathy (non-bleeding). ? - No specimens collected. Narrative [facility] - 01/26/2022 10:50 PM CDT Otto 6 [...] No immedia te complications. 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 pro cedure, including non-judd portions. Andreas Price MD 01/26/2022 10:50:15 PM This report has been signed electronical ly. Number of Addenda: 0 Huang Diamond M.D. GI PROCEDURE ORDERABLES Performing Organization Address City/[facility]/ZIP Code Phon e Number [facility] NA Transfuse Fresh Frozen Plasma :INR >2: Invasive proc scheduled; 180 mL/hr (01/26/2022 11:20 AM CDT)Only the most recent of2 resultswithin the time period is included. Darrick DanielSSuma BLOOD TRANSFUSION ORDERABLES (ABNORMAL) Hemoglobin (01/26/2022 11:16 [...] e Number [facility] - [address] [place] [address] [facility] [place] [address] Transfuse Emergency Released Red Blood Cells (Uncrossmatched) (01/26/2022 9:59 AM CDT) Darrick DanielSSuma BLOOD TRANSFUSION ORDERABLES HIV-1/-2 Ag and Ab Screen, Plasma (01/25/2022 [...] Performing Organization Address City/[facility] Phon e Number [facility] [address] [place], [place] [address] [facility] [place] [address] [facility] [address] [place] Transfuse Red Blood Cells : [...] Performing Organization Address City/[facility] Phon e Number [facility] - [address] [place] [address] 05 [facility] [place] [address] Laboratories-[facility] 200 [facility] (ABNORMAL) SPSMA Result (01/25/2022 5:35 AM CDT)Only [...] Reviewed by: Tech 01/25/2022 7:03 AM CDT [facility] Specimen Anatomical Collection Method Collection Time Receive d Time (Source) Location / / Volume Laterality Blood (Blood, 01/25/2022 5:35 AM 01/26/20 22 5:57 Venous) CDT AM CDT Darrick DanielSSuma LAB BLOOD ADD-ON Performing Organization Address City/[facility] Phon e Number [facility] - [address] [address] 05 [place] [address] [address] LD (Lactate Dehydrogenase) (01/25/2022 5:35 AM CDT)Only the most recent of2 resultswithin the time period is included. [facility] LD 197 122 - 222 01/25/2022 DTL U/L 6:35 AM CDT Specimen Anatomical Collection Method Collection Time Receive d Time (Source) Location / / Volume Laterality Blood (Blood, 01/25/2022 5:35 AM 01/26/20 22 6:18 Venous) CDT AM CDT Darrick DanielSSuma LAB BLOOD NON ADD-ON Performing Organization Address City/[facility] Phon e Number [facility] - [address] [place], [place] [address] [facility] [place] [address] (ABNORMAL) Haptoglobin (01/25/2022 5:35 AM CDT)Only the most recent of2 results within the time period is included. [facility] Haptoglobin, S <14 (L) 30 - 200 01/26/2022 SDSC mg/dL 10:51 AM CDT Specimen Anatomical Collection Method Collection Time Receive d Time (Source) Location / / Volume Laterality Blood 01/25/2022 5:35 AM 6:58 CDT AM CDT Darrick Santillan LAB BLOOD ADD-ON Performing Organization Address City/State/ZIP Code Phon e Number [facility] [address] [place], [place] [address] [facility] [place], [place] [id number] [place] [address] [place] (ABNORMAL) Reticulocytes (01/25/2022 5:30 AM CDT) [facility] Method Time Signature Reticulocytes, B 6.67 [...] [facility]/ZIP Code Phon e Number [facility] - [address] [place] [address] 05 [facility] DTL [address] Direct Antiglobulin Test (Poly) (01/25/2022 5:30 AM CDT) [facility] Method [place] Signature Direct Negative Negative 01/25/2022 STRM Antiglobulin 1:15 PM CDT Test, Polyspecific Specimen Anatomical Collection Method Collection Time Receive d Time (Source) Location / / Volume Laterality Blood (Blood, 01/25/2022 5:30 AM 01/26/20 22 Venous) CDT 11:46 AM CDT Darrick Santillan LAB BLOOD BANK TEST ORDERABL ES Performing Organization Address City/State/ZIP Code Phon e Number [facility] - [address] [place], [place] [address] [place] [address] [facility] [address] Magnesium (01/25/2022 5:30 AM CDT)Only the most recent of5 resultswithin [...] Performing Organization Address City/[facility]/RUST Code Phon e Number [facility] - [address] [place], [place] [address] [place] [id number] [facility] [address] [facility] Sodium, Random, Urine (01/24/2022 3:32 PM [...] Performing Organization Address City/[facility] Phon e Number [facility] - [address] [place], [place] [address] [place] [address] [facility] [address] [facility] Creatinine, Random, Urine (01/24/2022 3:32 PM CDT) athologist Signature Creatinine, 60 16 - 326 01/24/2022 DTL Random, U mg/dL 4:50 PM CDT Specimen Anatomical Collection Method Collection Time Receive d Time (Source) Location / / Volume Laterality Urine (Urine, 01/24/2022 3:32 PM 01/25/20 22 3:59 Midstream) CDT PM CDT Yue Silver M.D. LAB URINE ORDERABLES Performing Organization Address City/[facility]/RUST Code Phon e Number [facility] - [address] [address] 05 [facility] [place] [address] Laboratories-[address] (ABNORMAL) Bilirubin, Total (01/24/2022 1:35 PM [...] Performing Organization Address City/[facility] Phon e Number [facility] - [address] [address] 05 [facility] [place] [address] Laboratories-[address] Upper GI Endoscopy (01/23/2022 3:35 PM CDT) Specimen (Source) Anatomical Collection Method Collection Time Re ceived Time Location / / Volume Laterality 01/23/2022 3:35 PM CDT Impressions [facility] - 01/23/2022 4:08 PM CDT Post-op [...] examination. ? - No specimens collected. Narrative [facility] - 01/23/2022 4:08 PM CDT Otto [...] Organization Address City/State/ZIP Code Phon e Number [facility] NA Protein, Total, Body Fluid (01/21/2022 [...] ical findings. All other fluids refer to [email or web address]]list [email or web address] for further inter pretive information. This test has been modified from the chicken hanger's instructions. Its perform ance characteristics were determined by [facility] in a manner consistent with CLIA require [...] AND STOOLS O JOSE Performing Organization Address [facility] Phon e Number [facility] - [address] [place] [address] 05 [place] [address] [facility]-[address] Bacterial Culture, Aerobic + Susc (01/21/2022 [...] Comment: Specimen Source Site: Fluid Narrative [facility] - [facility] [employer] [facility] - 01/26/2022 7:48 AM CDT Bacterial Culture: Received Bactec aerob ic and Bactec anaerobic bottles Matthew Becerril M.D. LAB MICROBIOLOGY - GENERAL Marylou GARCIA Performing Organization Address City/[facility] Phon e Number [facility] - [address] [place] [address] 05 [place] [address] [facility]-[address] (ABNORMAL) Iron and Total Iron-Binding Capacity [...] Performing Organization Address City/[facility] Phon e Number [facility] - [phone] [place] [address] (ABNORMAL) Ferritin (01/21/2022 7:21 AM CDT) athologist Signature Ferritin, S 564 (H) 11 - 307 01/22/2022 DTL mcg/L 5:18 PM CDT Specimen Anatomical Collection Method Collection Time Receive d Time (Source) Location / / Volume Laterality Blood (Blood, 01/21/2022 7:21 AM 01/23/20 22 4:23 Venous) CDT PM CDT Sree Little M.D. LAB BLOOD ADD-ON Performing Organization Address [facility] Phon e Number [facility] - [address] Microscopic Automated (01/20/2022 8:57 PM CDT)Only [...] Performing Organization Address City/[facility] Phon e Number [facility] - [address] Bacterial Culture, Aerobic + Susc, Urine (01/20/2022 8:57 PM CDT)Only the most recent of5 resultswithin the time period is included. [facility] gist Method Time Signature Urine Culture [...] O RDERABLES Performing Organization Address City/[facility] Phon e Number [phone] [place] [address] pH, Urine (01/20/2022 8:57 PM CDT)Only the [...] Performing Organization Address City/[facility] Phon e Number [facility] - [address] [place] [address] Osmolality, Urine (01/20/2022 8:57 PM CDT)Only the [...] LAB URINE ORDERABLES Performing Organization Address [facility]/ZIP Code Phon e Number [address] Drug Screen Urine (01/10/2022 1:46 PM CDT) [...] LAB URINE ORDERABLES Performing Organization Address [facility] Phon e Number [address] [place] Liver with Liver Doppler (01/10/2022 [...] clinical findings. All other fluids refer to www.[email or web address].com for further interpretive information. This test has been modified from the man cecilacturer's instructions. Its performance characteristics were det ermined by [facility] in a manner consistent with CLIA requirements [...] [facility] - [address] [place], [place] [address] [facility] [place] [address] Laboratories-[facility] [address] Glucose, Body Fluid [...] of infection. All other fluids refer to [email or web address]]list [email or web address] for further inter pretive information. This test has been modified from the man luis fernandourer's instructions. Its performance characteri stics were determined by [facility] in a manner co nsistent with [...] [facility] - [address] [place], [place] [address] [place] [address] Laboratories-[facility] [facility]) [address] Amylase, Body Fluid (01/10/2022 [...] atio <1.0. All other fluids refer to [email or web address] for further inter pretive information. This test has been modified from the man ufacturer's instructions. Its performance characteri stics were determined by [facility] in a manner consistent wi CLIA requirements. [...] e Number [facility] - [address] [place] [address] [facility] [place] [address] [facility]) [address] [facility] Albumin, Body Fluid (01/10/2022 9:51 AM [...] process. ?? All other fluids refer to www.[email or web address] for further interpretive information. This t est has been modified from the chicken hanger's instruc tions. Its performance characteristics were determi foreign by [facility] in a manner consistent with CLIA require [...] [facility] - [address] [place], [place] [address] [facility] [place] [address] [facility]) [address] DX Chest Portable 1 [...] POC, V Asymptomatic (01/09/2022 1:45 PM CDT) [facility] Method Time Signature SARS Undetected Undetected 01/09/2022 [facility] Coronavirus-2 2:05 PM CDT , RNA, Rapid POC, V Comment: Negative for SARS-CoV-2. The Cue COVID-19 test is a molecular jonathan t for SARS-CoV-2, the virus that causes COVID- 19. A Negative result means that the Cue COV ID-19 test did not detect SARS-CoV-2 virus in your sample. Cue COVID-19 test uses the [employer] nitoring System. This test has received Emergency Use Authorization (EUA) by the U.S. Food and Drug Administration (FDA) and is used per man ufacturer instructions. Performance characteristic s were verified by [facility] in a manner consistent with CLIA requirements. Fact sheets for this Emerg ency Use Authorization (EUA) can be found at the following links: Providers: https://Sparktrend.com/documentation/prov iders.pdf Patients: [email or web address] [email or web address].pdf SARS Coronavirus 2, Source Nasopharynx DEFAULT 01/09/2022 2:05 PM CDT DT[facility] Specimen Anatomical Collection Method Collection Time Receive d Time (Source) Location / / Volume Laterality Varies 01/09/2022 1:45 PM 1:45 (Nasopharynx) CDT PM CDT Reese Reyes M.D. LAB MICROBIOLOGY - GENERAL O RDERABLES Performing Organization Address City/[facility]/ZIP Code Phon e Number PERFORMING LABS, [place] [address] INTERFACE Ref Interface [address] [facility] DTLR Performing Labs, [place] [address] Interface [address] [facility] Glucose, POCT (01/09/2022 10:04 AM CDT)Only [...] P.A.-C. LAB POCT ORDERABLES-MANUAL Performing Organization Address City/[facility]/ZIP Code Phon e Number [facility] - [address] [place], [place] [address] [facility] [place] [address] [facility] [address] Paracentesis (12/21/2021 2:48 PM [...] Confirmation, Urine (12/15/2021 5:58 PM CDT) [facility] Method Time Signature Carboxy-THC- by 19 Cutoff: 12/18/2021 [facility] GC/MS 3.0 ng/mL 6:38 AM CDT Carboxy-THC Positive. 12/18/2021 [facility] Interpretation 6:38 AM CDT Comment: ----ADDITIONAL INFORMATION---- This report is intended for use in clini ada monitoring and management of patients. ??It is not intended for use i n employment-related testing. This test was developed and its performa nce characteristics determined by [facility] in a manner consistent with CLIA [...] [address] [place], [place] [address] SUPPORT CENTER [facility] [place] [address] Laboratory Medicine and Pathology [address] [place] Phosphatidylethanol (Peth), whole blood- Sent Out Lab (12/15/2021 5:39 PM CDT) Component Value Ref Range Test Analysis Performed Pathologis t Method Time At Signature Phosphatidylethanol NEGATIVE NEGATIVE 12/26/2021 [facility] (PEth) ng/mL 1:01 PM CDT Comment: Analyzed compound: PEth 16:0/18:1. ? 5-qedlfuban-2-pyhijl-nw-abhblmu-3 -phosphoethanol. ? Analysis performed by Liquid Chromatogra [...] Organization Address City/State/ZIP Code Phon e Number [employer]. [address] [place] [address] [address] [place] [address] [place] [address] Paracentesis (12/04/2021 9:57 AM CDT) Narrative Blanquita [...] Number [facility] - [address] [place], [place] [address] [place] [address] [facility] [address] [facility] (ABNORMAL) Blood Gas with Coox, Venous (12/04/2021 7:30 AM CDT) [facility] gist Method Time Signature Venous pO2 36 [...] CDT COHb 3.0 (H) <3.0 % 12/[facility] AM CDT MetHb <1.0 <1.5 % 12/04/2021 [facility] 7:38 AM CDT CtO2 6.9 Not applicable 12/04/20[facility] vol % 7:38 AM CDT Venous Sample Venipunct 12/04/2021 [facility] Site 7:38 AM CDT Specimen Anatomical Collection Method Collection Time Receive d Time (Source) Location / / Volume Laterality Blood (Blood, 12/04/2021 7:30 AM 12/05/19 22 7:34 Venous) CDT AM CDT Sree Goodman M.D., M.A. LAB BLOOD NON ADD-ON Performing Organization Address City/[facility]/ZIP Code Phon e Number [facility] - [address] [place] [address] Phosphorus Inorganic (11/25/2021 6:55 AM CDT)Only the most recent of3 results [...] Performing Organization Address City/[facility]/RUST Code Phon e Number [address] [place] [address] DX Abdomen Portable Anterior Posterior 1 [...] IMG DIAGNOSTIC IMAGING PROCE DURES Pernicious Anemia Usk (11/21/2021 11:25 AM CDT) athologist Signature Vitamin B12 621 180 - 914 11/21/2021 [facility] Assay, S ng/L 6:21 PM CDT Specimen Anatomical Collection Method Collection Time Receive d Time (Source) Location / / Volume Laterality Blood (Blood, 11/21/2021 11:25 11/21/2021 4:05 Venous) AM CDT PM CDT Dina Campa M.D. LAB BLOOD NON ADD-ON Performing Organization Address City/State/ZIP Code Phon e Number [facility] [address] [place] [address] SU[facility] [place] [address] Laboratory Medicine and Pathology [address] [place] Copper, 24 Hour, Urine (11/21/2021 11:00 AM CDT) athologist Signature Copper, 24 Hr, U 19 9 - 71 11/24/2021 [facility] mcg/24 h 10:42 AM CDT Collection 24 h 11/24/2021 [facility] Duration 10:42 AM CDT Volume 815 mL 11/24/2021 [facility] 10:42 AM CDT Comment: ----ADDITIONAL INFORMATION---- This test was developed and its performa nce characteristics determined by [facility] in a manner consistent with CLIA [...] Performing Organization Address City/[facility] Phon e Number [facility] [address] [place] [address] CENTER [facility] [place] [address] Laboratory Medicine and Pathology [address] [...] at or the on-line test catalog at [employer] for m ore information. Specimen Anatomical Collection Method Collection Time Receive d Time (Source) Location / / Volume Laterality Blood (Blood, 11/20/2021 6:38 AM 11/21/19 8:33 Venous) CDT AM CDT Gerard Andino M.D., M.S. LAB BLOOD ADD-ON Performing Organization Address City/State/ZIP Code Phon e Number [facility] - [address] [place], [place] [address] [place] [address] Sedimentation Rate (11/19/2021 2:55 PM CDT) [...] LAB BLOOD ADD-ON Performing Organization Address [facility]/RUST Code Phon e Number [facility] - [address] [place] [address] [place] [address] EEG prolonged (11/17/2021 10:14 AM CDT) [...] and agrees with the results. ?? Isaak D Rodriguez M.D. NEUROLOGY ORDERABLES Performing Organization Address [...] Code Phon e Number MMODAL MMODAL NA from Last 3 Months Insurance Payer Benefit Plan / Subscriber ID Effective Phone Address T ype Group Dates [facility] [id number] 2018-Prese [address] [address] Medicaid O [facility] RESTRICTED PLAN [facility] [phone] [address] [place] [phone] Advance Directives For more information, please contact: [phone] Latest Code Status on File Code Status [...] Due to: Not medically appropriate Care Teams Wealth Management Director Relationship Specialty Start Date End Date Ana Red P.A.-C. PCP - General Internal Medicine 12/01/[address] [place] [phone] [facility] [place] lab 08/25/21 Ervin Schroeder MD Referring Provider Family Medicine 03/24/[address] [place] [address]
--- OUTSIDE RECORDS SUMMARY | 2022-02-16 12:15 | XMS_ITS | Encounter Summary ---
:1990 Author Organization [facility] Address [address] [place] [address] Care Team Providers Name Role Phone Ana Red P.A.-C. Primary Care Provider [phone] Reason for Visit Reason Comments Rectal Bleeding Encounter Details Date Type Department Care Team Description 02/16/2022 [facility], [facility], in [place], [facility] [address] [place], [place] [address] [place] [address] [place] [address] [phone] Social History Tobacco Use Types Packs/Day Years [...] you attend buddhism or Patient refused 2021 mandaen services? 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 - 02/16/2022 12:49 AM CDT Chief Complaint / Reason for Call Patient is a 31 y.o. female calling regarding Rectal Bleeding. Assessment Concern: Patient has had abdominal pain the last 2 days. Tonight she vomited 1x and there was blood present. She states it was approximately 1 teaspoon, and was bright red. She also noticed bright red blood in her stool. No diarrhea present. Patient is having lower abdominal pain of a 8/10. No dizziness reported. Patient has been having a headache for the last few hours. Calling to request: Advice The recommended disposition is Go to ED Now. Care Advice Patient/Caregiver understands and will follow care advice?: Yes, able to teach back GO TO ED NOW: * You need to be seen in the Emergency Department. * Go to the ED. * Leave now. Drive carefully. BRING MEDICINES: * Bring a list of your current medicines when you go to the Emergency Department (ER). * Bring the pill bottles too. This will help the doctor (or BOILER HOUSE SUPERVISOR/PA) to make certain you are taking the right medicines and the right dose. Reason for Disposition [1] Constant abdominal pain AND [2] present > 2 hours Protocols used: Rectal Lmerdtck-CRZKV-HU documented in this encounter Plan of Treatment Upcoming Encounters Date Type Specialty Care Team Description Telemedicine Transplant 2 Appointment Radiology Matthew Jerome 2, M.B.B.S., M.D. [address] [place] [phone] Appointment Gastroenterology and Adrianne, 2 Hepatology Yue Burciaga M.D. [address] [place] [phone] Virtual Visit Transplant Matthew Jerome 2 Tyrell Rodriguez, Lilian [address] [place] [phone] Office Visit Gastroenterology and Matthew Jerome 2 Hepatology Tyrell Rodriguez M.D. [address] [place] [phone] Appointment Radiology Matthew Jerome 2, M.B.B.S., M.D. [address] [place] [phone] Hospital Gastroenterology and Matthew Jerome Cirrhos is Alcoholic (HCC) 2 Encounter Hepatology Tyrell Rodriguez, Lilian [address] [place] [phone] Anesthesia Event Gastroenterology and Rl, 2 Hepatology Ervin Burgos M.D. [address] [place] [phone] Surgery Gastroenterology and Mousa, Matthew ESOPHAG OGASTRODUODENOSCOPY 2 Hepatology Tyrell Rodriguez M.D. [address] [place] [phone] Scheduled Procedures Name Priority Associated Diagnoses Date/Time ESOPHAGOGASTRODUODENOSCOPY Cirrhosis Alc oholic (HCC) 03/20/2022 8:45 AM DESIGN SALES CONSULTANT Hypertension Portal (HCC) documented as of this encounter Visit Diagnoses Not on filedocumented in this encounter Additional Health Concerns Assessment Noted Time PHQ-9 Depression Total Score: 10 10/06/2021 5:00 PM CD T documented as of this encounter Care Teams Hub Borer Relationship Specialty Start Date End Date Ana Red P.A.-C. PCP - General Internal Medicine 12/01/[address] [place] [phone] [facility] [place] lab 08/25/21 Ervin Schroeder MD Referring Provider Family Medicine 03/24/[address] [place] [address] documented as of this encounter
--- OUTSIDE RECORDS SUMMARY | 2022-02-16 12:15 | XMS_ITS | Encounter Summary ---
:1990 Author Organization [facility] Address [address] [place] [address] Care Team Providers Name Role Phone Ana Red P.A.-C. Primary Care Provider [phone] Encounter Details Date Type Department Care Team Description 02/13/2022 Clinical Communication Department of Debra Red [facility] Farida Perez Medicine in [address] [phone] [place], [place] [phone] (Work) [phone] Social History Tobacco Use Types Packs/Day Years [...] you attend jain or Patient refused 2021 anabaptist services? Do [...] or the highest technical, or vocational p Pressiram degree you have received? 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 Does the patient need to speak to nursing? yes Action needed: Detailed message was left. Patient was informed of prescription sent to pharmacy per Ana Red P.A.-C. Telephone Encounter - Catia Weiss - 02/13/2022 2:25 PM CDT Reason for Communication: Pt called and stated that the oxycodone that the ER gave her is no longer working and if she could get something else prescribed for her and sent to [facility] in [place] Current Can Nursing/Provider leave a detailed message?: [...] 2 Appointment Radiology QueenieNewar 2 YTyrell M.D. [address] [place] [phone] Appointment Gastroenterology and Adrianne, 2 Hepatology Yue Burciaga M.D. [address] [place] [phone] Virtual Visit Transplant LuisNew abdular 2 Tyrell Rodriguez M.D. [address] [place] [phone] Office Visit Gastroenterology and LuisNew abdular 2 Hepatology Tyrell Rodriguez M.D. [address] [place] [phone] Appointment Radiology LuischantellMatthew 2 YTyrell M.D. [address] [place] [phone] Hospital Gastroenterology and LuisMatthew abdul Cirrhos is Alcoholic (HCC) 2 Encounter Hepatology Tyrell Rodriguez M.D. [address] [place] [phone] Anesthesia Event Gastroenterology and Rl, 2 Hepatology Ervin Burgos M.D. [address] [place] [phone] Surgery Gastroenterology and Mousa, Matthew ESOPHAG OGASTRODUODENOSCOPY 2 Hepatology Tyrell Rodriguez M.D. [address] [place] [phone] Scheduled Procedures Name Priority Associated Diagnoses Date/Time ESOPHAGOGASTRODUODENOSCOPY Cirrhosis Alc oholic (HCC) 03/20/2022 8:45 AM PROCUREMENT AGENT Hypertension Portal (HCC) documented as of this encounter Visit Diagnoses Not on filedocumented in this encounter Additional Health Concerns Assessment Noted Time PHQ-9 Depression Total Score: 10 10/06/2021 5:00 PM CD T documented as of this encounter Care Teams Clinical Safety Manager Relationship Specialty Start Date End Date Ana Red P.A.-C. PCP - General Internal Medicine 12/01/[address] [place] [address] [place] [phone] [facility]- [place] lab 08/25/21 Ervin Schroeder MD Referring Provider Family Medicine 03/24/[address] [place] [address] [place] [address] documented as of this encounter
--- OUTSIDE RECORDS SUMMARY | 2022-02-16 12:15 | XMS_ITS | Encounter Summary ---
:1990 Author Organization [facility] Address [address] [place] [address] Care Team Providers Name Role Phone Ana Red P.A.-C. Primary Care Provider [phone] Reason for Visit Reason Comments Med Refill Encounter Details Date Type Department Care Team Description 02/11/2022 Refill Department of [facility] Ana Red , Med Refill Internal Medicine in [place], [place] 300 [facility] 300 [facility] [place] [address] [place] [address] [phone] Social History Tobacco Use Types Packs/Day Years [...] you attend temple or Patient refused 2021 orthodox services? 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 [address] [place] [phone] Virtual Visit Transplant Matthew Jerome 2 Joshua RodriguezBSumaBLilian Bedolla [address] [place] [phone] Office Visit Gastroenterology and Matthew Jerome 2 Hepatology Vik RodriguezBLilian Bedolla [address] [place] [phone] Appointment Radiology Matthew Jerome 2 Joshua RodriguezB.BLilian Bedolla [address] [place] [phone] Hospital Gastroenterology and Queenie Matthew Cirrhos is Alcoholic (HCC) 2 Encounter Hepatology Joshua RodriguezBSumaBLilian Bedolla [address] [place] [phone] Anesthesia Event Gastroenterology and Rl, 2 Hepatology Ervin Burgos M.D. [address] [place] [phone] Surgery Gastroenterology and LuischantellMatthew ESOPHAG OGASTRODUODENOSCOPY 2 Hepatology Joshua RodriguezB.BLilian Bedolla [address] [place] [phone] Scheduled Procedures Name Priority Associated Diagnoses Date/Time ESOPHAGOGASTRODUODENOSCOPY Cirrhosis Alc oholic (HCC) 03/20/2022 8:45 AM RESPIRATORY CARE PROGRAM DIRECTOR Hypertension Portal (HCC) documented as of this encounter Visit Diagnoses Not on filedocumented in this encounter Additional Health Concerns Assessment Noted Time PHQ-9 Depression Total Score: 10 10/06/2021 5:00 PM CD T documented as of this encounter Care Teams Carpenter Rough Relationship Specialty Start Date End Date Ana Red P.A.-C. PCP - General Internal Medicine 12/01/[address] [place] [phone] [facility]- [place] lab 08/25/21 Ervin Schroeder MD Referring Provider Family Medicine 03/24/[address] [place] [phone] documented as of this encounter
--- OUTSIDE RECORDS SUMMARY | 2022-02-16 12:15 | XMS_ITS | Encounter Summary ---
:1990 Author Organization [facility] Address [address] [place] [address] Care Team Providers Name Role Phone Ana Red P.A.-C. Primary Care Provider [phone] Reason for Visit Reason Comments Medical Information Encounter Details Date Type Department Care Team Description 02/15/2022 Nurse Triage Department of [facility] Internal M, R.N. Medicine in [place], [facility] [address] [phone] [place] [address] Social History Tobacco Use Types Packs/Day [...] you attend muslim or Patient refused 2021 denominational services? Do [...] or the highest technical, or vocational p Bridesideram degree you have received? 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 - 02/15/2022 7:21 PM CDT Patient calls after being seen in non-[facility] ED last evening. Patient was prescribed oxycodone for pain. Calling to report worsening pain despite taking oxycodone. Encouraged patient to return to any ED with new/worsening symptoms and also advised that patient reach out to primary care staff for recommen dations on symptom management. documented in this encounter Plan of Treatment Upcoming Encounters Date Type Specialty Care Team Description Telemedicine Transplant 2 Appointment Radiology Matthew Jerome 2 Vik RodriguezBLilian Bedolla [address] [place] [phone] Appointment Gastroenterology and Adrianne, 2 Hepatology Yue Burciaga M.D. [address] [place] [phone] Virtual Visit Transplant Matthew Jerome 2 Tyrell Rodriguez M.D. [address] [place] [phone] Office Visit Gastroenterology and New Jeromear 2 Hepatology Tyrell Rodriguez M.D. [address] [place] [phone] Appointment Radiology Matthew Jerome 2 Joshua RodriguezBSumaBLilian Bedolla [address] [place] [phone] [facility] Gastroenterology and Matthew Jerome Cirrhos is Alcoholic (HCC) 2 Encounter Hepatology Joshua RodriguezBSumaBLilian Bedolla [address] [place] [phone] Anesthesia Event Gastroenterology and Rl, 2 Hepatology Ervin Burgos M.D. [address] [place] [phone] Surgery Gastroenterology and Matthew Jreome ESOPHAG OGASTRODUODENOSCOPY 2 Hepatology Joshua RodriguezB.BGraeme, Lilian [address] [place] [phone] Scheduled Procedures Name Priority Associated Diagnoses Date/Time ESOPHAGOGASTRODUODENOSCOPY Cirrhosis Alc oholic (HCC) 03/20/2022 8:45 AM INDUSTRIAL ECOLOGY TECHNICIAN Hypertension Portal (HCC) documented as of this encounter Visit Diagnoses Not on filedocumented in this encounter Additional Health Concerns Assessment Noted Time PHQ-9 Depression Total Score: 10 10/06/2021 5:00 PM CD T documented as of this encounter Care Teams Director Of Health Education Relationship Specialty Start Date End Date Ana Red P.A.-C. PCP - General Internal Medicine 12/01/[address] [place] [phone] [facility]- [place] lab 08/25/21 Ervin Schroeder MD Referring Provider Family Medicine 03/24/[address] [place] [address] documented as of this encounter
--- OUTSIDE RECORDS SUMMARY | 2022-02-16 12:15 | XMS_ITS | Encounter Summary ---
:1990 Author Organization [facility] Address [address] [place] [address] Care Team Providers Name Role Phone Ana Red P.A.-C. 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 - 02/13/2022 4:57 PM CDT Chief [...] after hours. Patient was warm transferred to [facility] at the clinic for further assistance. Offered her an appointment tomorrow in another clinic: declined. documented in this encounter Plan of Treatment Upcoming Encounters Date Type Specialty Care Team Description Telemedicine Transplant 2 Appointment Radiology Matthew Jerome 2 Joshua RodriguezBSumaB.SSuma, Lilian [address] [place] [phone] Appointment Gastroenterology and Adrianne, 2 Hepatology Yue Burciaga M.D. [address] [place] [phone] Virtual Visit Transplant Luischantell Matthew 2 Joshua RodriguezB.B.SSuma, Lilian [address] [place] [phone] Office Visit Gastroenterology and Matthew Jerome 2 Hepatology Joshua RodriguezB.B.SLilian Moise [address] [place] [phone] Appointment Radiology Matthew Jerome 2 Y M.B.B.SLilian Moise [address] [place] [phone] Hospital Gastroenterology and Matthew Jerome Cirrhos is Alcoholic (HCC) 2 Encounter Hepatology Joshua RodriguezB.B.SLilian Moise [address] [place] [phone] Anesthesia Event Gastroenterology and Rl, 2 Hepatology Ervin Burgos M.D. [address] [place] [phone] Surgery Gastroenterology and Mousa, Matthew ESOPHAG OGASTRODUODENOSCOPY 2 Hepatology Tyrell Rodriguez M.D. [address] [place] [phone] Scheduled Procedures Name Priority Associated Diagnoses Date/Time ESOPHAGOGASTRODUODENOSCOPY Cirrhosis Alc oholic (HCC) 03/20/2022 8:45 AM BIODIESEL DIVISION MANAGER Hypertension Portal (HCC) documented as of this encounter Visit Diagnoses Not on filedocumented in this encounter Additional Health Concerns Assessment Noted Time PHQ-9 Depression Total Score: 10 10/06/2021 5:00 PM CD T documented as of this encounter Care Teams Load Dispatcher Relationship Specialty Start Date End Date Ana Red P.A.-C. PCP - General Internal Medicine 12/01/[address] [place] [phone] [facility]- [place] lab 08/25/21 Ervin Schroeder MD Referring Provider Family Medicine 03/24/[address] [place] [address] documented as of this encounter
--- OUTSIDE RECORDS SUMMARY | 2022-02-16 12:15 | XMS_ITS | Encounter Summary ---
:1990 Author Organization [facility] Address [address] [place] [address] Care Team Providers Name Role Phone Ana Red P.A.-C. 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 Blanca Henson called from [facility]. She did a CT scan of pt and would like to go over the results with someone from pt's care team. Please call back at [phone] Rios. Including Dr. Queenie mcmahan he can contact provider back sooner. Thank you in advance documented in this encounter Plan of Treatment Upcoming Encounters Date Type Specialty Care Team Description Telemedicine Transplant 2 Appointment Radiology LuisMatthew abdul 2 YTyrell M.D. [address] [place] [phone] Appointment Gastroenterology demian Silver, 2 Hepatology Yue Burciaga M.D. [address] [place] [phone] Virtual Visit Transplant LuisMatthew abdul 2 YTyrell M.D. [address] [place] [phone] Office Visit Gastroenterology and [place] Jeromear 2 Hepatology Tyrell Rodriguez M.D. [address] [place] [phone] Appointment Radiology LuisMatthew abdul 2 YTyrell M.D. [address] [place] [phone] Hospital Gastroenterology and Matthew Jerome Cirrhos is Alcoholic (HCC) 2 Encounter Hepatology Tyrell Rodriguez M.D. [address] [place] [phone] Anesthesia Event Gastroenterology and Rl, 2 Hepatology Ervin Burgos M.D. [address] [place] [phone] Surgery Gastroenterology and Matthew Jerome ESOPHAG OGASTRODUODENOSCOPY 2 Hepatology Tyrell Rodriguez M.D. [address] [place] [phone] Scheduled Procedures Name Priority Associated Diagnoses Date/Time ESOPHAGOGASTRODUODENOSCOPY Cirrhosis Alc oholic (HCC) 03/20/2022 8:45 AM FISH AND GAME WARDEN Hypertension Portal (HCC) documented as of this encounter Visit Diagnoses Not on filedocumented in this encounter Additional Health Concerns Assessment Noted Time PHQ-9 Depression Total Score: 10 10/06/2021 5:00 PM CD T documented as of this encounter Care Teams Four Slide Machine Operator Relationship Specialty Start Date End Date Ana Red P.A.-C. PCP - General Internal Medicine 12/01/[address] [place] [phone] [facility]- [place] lab 08/25/21 Ervin Schroeder MD Referring Provider Family Medicine 03/24/[address] [place] [address] documented as of this encounter
--- OUTSIDE RECORDS SUMMARY | 2022-02-16 12:15 | XMS_ITS | Encounter Summary ---
:1990 Author Organization [facility] Address [address] [place] [address] Care Team Providers Name Role Phone Ana Red P.A.-C. Primary Care Provider [phone] Encounter Details Date Type Department Care Team Description 02/10/2022 Documentation Division of Gastroenterology Elizabeth Bella, in [place] [facility] M.B.B.S. [address] [facility] [address] [place] [address] [place], [place] [phone] Social History Tobacco Use Types Packs/Day Years [...] you attend jainism or Patient refused 2021 scientologist services? Do [...] or vocational p [facility] degree you have received? 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 - 02/10/2022 3:56 AM CDT See encounter documentation documented in this encounter H&P Notes John Bella M.B.B.S. - 02/10/2022 3:56 AM CDT Catia Carias called in to the [facility] with bladder and bowel incontinence over [...] Appointment Radiology Matthew Jerome 2, M.B.B.S., M.D. [address] [place] [phone] Appointment Gastroenterology demian Silver 2 Hepatology Yue Burciaga M.D. [address] [place] [phone] Virtual Visit Transplant Queenie Matthew 2 Tyrell Rodriguez M.D. [address] [place] [phone] Office Visit Gastroenterology and Matthew Jerome 2 Hepatology Tyrell Rodriguez M.D. [address] [place] [phone] Appointment Radiology Matthew Jerome 2 YTyrell M.D. [address] [place] [phone] Hospital Gastroenterology and Queenie Matthew Cirrhos is Alcoholic (HCC) 2 Encounter Hepatology Tyrell Rodriguez M.D. [address] [place] [phone] Anesthesia Event Gastroenterology demian Shine, 2 Hepatology Ervin Burgos M.D. [address] [place] [phone] Surgery Gastroenterology and Mousa, Matthew ESOPHAG OGASTRODUODENOSCOPY 2 Hepatology Tyrell Rodriguez M.D. [address] [place] [phone] Scheduled Procedures Name Priority Associated Diagnoses Date/Time ESOPHAGOGASTRODUODENOSCOPY Cirrhosis Alc oholic (HCC) 03/20/2022 8:45 AM TRIAGE NURSE Hypertension Portal (HCC) documented as of this encounter Visit Diagnoses Not on filedocumented in this encounter Additional Health Concerns Assessment Noted Time PHQ-9 Depression Total Score: 10 10/06/2021 5:00 PM CD T documented as of this encounter Care Teams Cashier Ticket Selling Relationship Specialty Start Date End Date Ana Red P.A.-C. PCP - General Internal Medicine 12/01/[address] [place] [phone] [facility] [place] lab 08/25/21 Ervin Schroeder MD Referring Provider Family Medicine 03/24/[address] [place] [phone] documented as of this encounter
--- OUTSIDE RECORDS SUMMARY | 2022-02-16 12:15 | XMS_ITS | Encounter Summary ---
:1990 Author Organization [facility] Address [address] [place] [address] Care Team Providers Name Role Phone Ana Red P.A.-C. Primary Care Provider [phone] Reason for Visit Transplant (Routine) - Closed Specialty Diagnoses / Procedures Referred By Contact Refer red To Contact Transplant Surgery / Adeline Frazier Royer Gannon M.D., Ph.D. [address] [place] [phone] Referral ID Status Reason Start Date Expiration Date Visits Requ ested Visits Authorized [id number] Closed 01/13/2022 01/12/2025 1 1 Encounter Details Date Type Department Care Team Description 02/12/2022 Office Visit [facility] Adeline Oconnor M.D., Ph.D. [address] [place] [phone] for Transplantation and Zenobia Hollingsworth M.A., L.A.D.C. Clinical Regeneration in [place], [place] [address] [place] [address] Social History Tobacco Use Types Packs/Day [...] the highest level of school Associate degree: occupa tional, 07/16/2021 you have completed or the highest technical, or vocational p rogram degree you have received? 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 [address] [place] [phone] Virtual Visit Transplant Matthew Jerome 2 Tyrell Rodriguez M.D. [address] [place] [phone] Office Visit Gastroenterology and Matthew Jerome 2 Hepatology Tyrell Rodriguez M.D. [address] [place] [phone] Appointment Radiology Matthew Jerome 2 Tyrell Rodriguez M.D. [address] [place] [phone] [facility] Gastroenterology and Luischantell Matthew Cirrhos is Alcoholic (HCC) 2 Encounter Hepatology Tyrell Rodriguez M.D. [address] [place] [phone] Anesthesia Event Gastroenterology and Rl, 2 Hepatology Ervin Burgos M.D. [address] [place] [phone] Surgery Gastroenterology and Luischantell Matthew ESOPHAG OGASTRODUODENOSCOPY 2 Hepatology Vik RodriguezBGraeme, Lilian [address] [place] [phone] Scheduled Procedures Name Priority Associated Diagnoses Date/Time ESOPHAGOGASTRODUODENOSCOPY Cirrhosis Alc oholic (HCC) 03/20/2022 8:45 AM PLASTIC PRESS OPERATOR Hypertension Portal (HCC) documented as of this encounter Visit Diagnoses Not on filedocumented in this encounter Additional Health Concerns Assessment Noted Time PHQ-9 Depression Total Score: 10 10/06/2021 5:00 PM CD T documented as of this encounter Care Teams Sliver Former Relationship Specialty Start Date End Date Ana Red P.A.-C. PCP - General Internal Medicine 12/01/[address] [place] [phone] [facility]- [place] lab 08/25/21 Ervin Schroeder MD Referring Provider Family Medicine 03/24/[address] [place] [address] documented as of this encounter
--- OUTSIDE RECORDS SUMMARY | 2022-02-16 12:15 | XMS_ITS | Encounter Summary ---
:1990 Author Organization [facility] Address [address] [place] [address] Care Team Providers Name Role Phone Ana Red P.A.-C. Primary Care Provider [phone] Reason for Visit Reason Comments Med Refill Encounter Details Date Type Department Care Team Description 02/16/2022 Refill Department of [facility] Ana Red , Med Refill Internal Medicine in [place], [place] 300 [facility] 300 [facility] [place] [phone] [place] [address] [phone] Social History Tobacco Use Types Packs/Day Years [...] you attend pentecostal or Patient refused 2021 gnosticism services? 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 - 02/16/2022 8:19 AM CDT Patient is requesting an Opioid renewal of Oxycodone 5 mg, there is no prescribing plan, and patientis not identified on Chronic Opioid Use Registry. This medication was last prescribed on 02/10/22. Please review and determine if you wish to continue prescribing. If you feel this could become chronicopioid use, please consider enrolling into a Chronic Opioid therapy agreement.. Telephone Encounter - Sera Dickson - 02/16/2022 8:10 AM CDT Nurse review: Unable to forward request to provider; Controlled Substance Primary Provider: Ana Red P.A.-C. Requested Prescriptions Pending Prescriptions Disp Refills oxyCODONE (ROXICODONE) 5 mg immediate release tablet 10 tablet 0 Sig: Take 0.5 tablets (2.5 mg total) by mouth every 8 (eight) hours as needed for severe pain or score 7-10 of 10 Indication: Acute Pain Exception. Pharmacy (include location): [facility] Telephone Encounter - Jose Bullock - 02/16/2022 8:05 AM CDT Provider: Ana Red P.A.-C. Patient called for Refills. Additional info only if applies: Requested Prescriptions Pending Prescriptions Disp Refills oxyCODONE (ROXICODONE) 5 mg immediate release tablet 10 tablet 0 Sig: Take 0.5 tablets (2.5 mg total) by mouth every 8 (eight) hours as needed for severe pain or score 7-10 of 10 Indication: Acute Pain Exception. Pharmacy: [id number] - [place], [place] - [address] [facility] [address] [place] [phone] Patient is completely out of this medication. documented in this encounter Plan of Treatment Upcoming Encounters Date Type Specialty Care Team Description Telemedicine Transplant 2 Appointment Radiology Matthew Jerome 2 YTyrell M.D. [address] [place] [phone] Appointment Gastroenterology and Doll, 2 Hepatology Yue Burciaga M.D. [address] [place] [phone] Virtual Visit Transplant LuisMatthew abdul 2 YTyrell M.D. [address] [place] [phone] Office Visit Gastroenterology and Matthew Jerome 2 Hepatology Tyrell Rodriguez M.D. [address] [place] [phone] Appointment Radiology LuisMatthew abdul 2 Tyrell Rodriguez M.D. [address] [place] [phone] Hospital Gastroenterology and Matthew Jerome Cirrhos is Alcoholic (HCC) 2 Encounter Hepatology Tyrell Rodriguez M.D. [address] [place] [phone] Anesthesia Event Gastroenterology and Rl, 2 Hepatology Ervin Burgos M.D. 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 PCP - General Internal Medicine 12/01/[address] [place] [phone] [facility] 08/25/21 Ervin Schroeder MD Referring Provider Family Medicine 03/24/[address] [place] [address] documented as of this encounter
--- OUTSIDE RECORDS SUMMARY | 2022-02-16 12:15 | XMS_ITS | Encounter Summary ---
:1990 Author Organization [facility] Address [address] [place] [address] Care Team Providers Name Role Phone Ana Red PSumaASuma-C. Primary Care Provider [phone] Encounter Details Date Type Department Care Team Description 02/10/2022 Orders Only Department of [facility] Ana Red , Internal Medicine in [place], [place] 300 [facility] 300 [facility] [place] [phone] (Wo rk) Social History Tobacco [...] you attend tenriism or Patient refused 2021 amish services? 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 [address] [place] [phone] Virtual Visit Transplant Matthew Jerome 2 Y, JoshuaB.B.Kath, Lilian [address] [place] [phone] Office Visit Gastroenterology and [facility] 2 Hepatology Tyrell Rodriguez M.D. [address] [place] [phone] Appointment Radiology [facility] Matthew 2 Tyrlel Rodriguez M.D. [address] [place] [address] [phone] Hospital Gastroenterology and [facility] Cirrhos is Alcoholic (HCC) 2 Encounter Hepatology Tyrell Rodriguez M.D. [address] [place] [phone] Anesthesia Event Gastroenterology and Rl, 2 Hepatology Ervin Burgos M.D. [address] [place] [address] [phone] Surgery Gastroenterology and [facility] ESOPHAG OGASTRODUODENOSCOPY 2 Hepatology Tyrell Rodriguez M.D. 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 PCP - General Internal Medicine 12/01/[address] [place] [address] ADI hCua [phone] [facility] 08/25/21 Ervin Schroeder MD Referring Provider Family Medicine 03/24/[address] [place] [address] documented as of this encounter
--- OUTSIDE RECORDS SUMMARY | 2022-02-16 12:15 | XMS_ITS | Encounter Summary ---
:1990 Author Organization [facility] Address [address] [place] [address] Care Team Providers Name Role Phone Ana Red P.A.-C. Primary Care Provider [phone] Reason for Visit Reason Comments Vomiting Blood Rectal Bleeding Encounter Details Date Type Department Care Team Description 02/16/2022 Emergency [facility] Jessy Knight A bdominal Pain (Primary Dx); Emergency Department M.D., M.S. Nausea And Vomiting [address] [place] [address] [address] [place] [phone] (Wo rk) Social History Tobacco Use Types [...] you attend spiritism or Patient refused 2021 jehovah's witness services? [...] the highest technical, or vocational [facility] degree you have received? 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 - 02/16/2022 4:40 AM CDT You were seen in the ED today for abdominal pain, nausea, and vomiting. Your blood work is reassuring. Your CT shows increased fluid in your abdomen. At this point, we feel comfortable with you returning home. Please contact Clinic tomorrow to discuss moving your paracentesis appointment up and to arrange outpatient follow up this week to discuss your ongoing challenges. For your back brace, try calling [facility] at [phone]. Return to the ED for increased pain, persistent vomiting, fevers, or any other concerns. AttachmentsThe following attachments cannot be sent through Care Everywhere. Nausea and Vomiting Adult [id number] (Togolese)Abdominal Pain Adult Dqpw-qb-Abke (Togolese)documented in this encounter Medications at Time of Discharge Medication Sig Dispensed Refills Start Date End Date acetaminophen (TYLENOL) acetaminophen 500 mg tablet 0 500 mg tablet TAKE 1 TABLET BY MOUTH EVER Y 6 HOURS NEEDED FOR MILD PAIN OR SCORE 1-3 OF 10 OR MODERATE PAIN OR SCORE 4-6 OF 10 cholecalciferol 10 mcg Take 1 tablet (400 [...] total) by mouth every morning before breakfast. prochlorperazine Take 10 mg by mouth. 0 (COMPAZINE) 10 mg tablet rifAXIMin (XIFAXAN) 550 Take 1 tablet (550 [...] documented as of this encounter ED Notes Emelyn Fong M.D. - 02/16/2022 4:52 AM CDT Care of patient transferred to va by Dr. Pacheco. Catia Carias is a 31 y.o. female presenting with alcohol cirrhosis of the liver, prolonged QT, pancreatitis congestive splenomegaly, esophageal varices without bleeding, tobacco use presenting with vomiting with streaks of blood and associated abdominal pain. VITAL SIGNS BP 117/61 Pulse 110 Temp 37.1 ??C (Oral) SpO2 97% ED Course as of 02/16/223 Mon Feb 16, 2022 0354 Care of the patient taken over from Dr. Pacheco. [facility] Esophageal varices, hepatic encephalopathy. Presenting with hematemesis, bright red blood per stool with associated abdominal pain tachycardic here. Jaundiced Patient given ceftriaxone, octreotide and pantoprazole. Follow-up on CT abdomen pelvis, chest x-ray 0431 CT demonstrates evidence of cirrhosis with portal hypertension and splenomegaly. [address] Knight. Please see her note for further details. Final Diagnoses: as of 02/16/22452 Abdominal Pain Nausea And Vomiting Emelyn Fong M.D. Resident 02/16/22452 Familia Pacheco M.D. - 02/16/2022 3:04 AM CDT CHIEF COMPLAINT/REASON FOR VISIT Vomiting Blood and Rectal Bleeding HISTORY OF PRESENT ILLNESS Catia Carias is a 31 y.o. with history of chronic pancreatitis, long QT syndrome, and alcoholiccirrhosis complicated by esophageal varices, coagulopathy, hepatorenal syndrome, and pleural effusion presenting to the emergency department with hematemesis and rectal bleeding. The patient's symptoms began this morning, shortly after midnight. The patient felt nauseated, and began to throw up. Her vomit initially consisted of undigested food, but subsequently began to producedrops of bright red blood. She also developed diffuse abdominal pain. Later, when she used the toilet, she noticed bright red blood in her stool. She has not had any bowel movements or vomiting since these two episodes. In the emergency department, the patient continues to complain of abdominal pain, which is describedas a 9/10 pain that is most severe in her lower abdomen. She also describes abdominal distention, back pain, as well as lower extremity edema, all of which are chronic and unchanged for her. No chest pain, shortness of breath, dizziness, syncope, headaches or confusion. She has an appointment scheduled for paracentesis in 2 days. She last ate at 9:00 p.m.. REVIEW OF SYSTEMS Constitutional: Negative for chills and fever. HENT: Negative for sore throat and trouble swallowing. Eyes: Negative for pain and redness. Respiratory: Negative for shortness of breath. Cardiovascular: Positive for leg swelling. Negative for chest pain. Gastrointestinal: Positive for abdominal distention, abdominal pain, blood in stool, hematemesis, nausea and vomiting. Genitourinary: Negative for flank pain and hematuria. Musculoskeletal: Negative for neck pain and neck stiffness. Skin: Negative for rash and wound. Neurological: Negative for dizziness, syncope, light-headedness and headaches. Psychiatric/Behavioral: Negative for agitation and confusion. OBJECTIVE Initial Vitals Temperature Pulse Rate Heart Rate Resp Blood Pressure SpO2 02/16/22 0230 02/16/22 0230 -- -- 02/16/22 0230 02/16/22 023 37.1 ??C (!) 116 117/61 98 % Pain Score 02/16/22 0234 9 PHYSICAL EXAMINATION Constitutional: Nursing note and vitals reviewed. Young adult female. Moderate distress from pain. HENT: Head: Normocephalic and atraumatic. Mouth/Throat: Mucous membranes are moist. Eyes: Conjunctivae and EOM are normal. Scleral icterus present. Cardiovascular: Regular rhythm, S1 normal, S2 normal and normal heart sounds. Tachycardia present. Capillary refill: takes less than 3 secondsEdema:Right lower extremity: 1+. Left lower extremity: 1+. Pulmonary/Chest: Effort normal and breath sounds normal. There is normal air entry. No respiratory distress. Abdominal: exhibits distension, fluid wave and ascites.Rectal exam shows external hemorrhoid and brown stool. Diffuse abdominal tenderness. Tenderness is most significant in lower abdomen. No rebound or guarding. Small reducible periumbilical hernia. 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 Large hemorrhoid noted. No obvious bleeding. Stool is brown.Hemoccult negative. Neurological: Alert and oriented to person, place, and time. Skin: Skin is warm and dry. There is jaundice. Psychiatric: She has a normal mood and affect. Behavior is normal. DIAGNOSTIC STUDIES LABORATORY RESULTS: Abnormal Labs Reviewed CBC WITH DIFFERENTIAL, B - Abnormal; Notable for the following components: Result Value Hemoglobin 8.5 (*) Hematocrit 24.9 (*) Erythrocytes 2.41 (*) MCV 103.3 (*) RBC Distrib Width 20.9 (*) Platelet Count 54 (*) All other components within normal limits BASIC METABOLIC PANEL, S/P - Abnormal; Notable for the following components: Bicarbonate, P 21 (*) Glucose, P 146 (*) All other components within normal limits HEPATIC FUNCTION PANEL, S - Abnormal; Notable for the following components: Bilirubin, Total, S 10.2 (*) Bilirubin, Direct, S 4.2 (*) Aspartate Aminotransferase (AST), S 78 (*) Alkaline Phosphatase, S 413 (*) Protein, Total, S 5.6 (*) All other components within normal limits PROTHROMBIN TIME (PT), P - Abnormal; Notable for the following components: Prothrombin Time, P 30.0 (*) All other components within normal limits IMAGING STUDIES: CT Abdomen Pelvis with IV Contrast (Results Pending) DX Chest AP or PA and Lateral 2 Views (Results Pending) MEDICAL DECISION MAKING 31-year-old female with history of alcoholic cirrhosis with multiple complications, including esophageal varices, presents to the emergency department for evaluation of hematemesis, rectal bleeding, and abdominal pain. Patient is tachycardic, but otherwise hemodynamically stable. She has multiple stigmata of liver disease on exam, and diffuse abdominal tenderness. Differential diagnoses include bleeding from esophageal varices, Mariangel-Hatch tear, hemorrhoids, colonic/rectal varices, and peptic ulcer disease. Given the patient's documented history of esophageal varices, in the setting of alcoholic cirrhosis, there is significant concern for esophageal varices bleed. Empiric treatment, including ceftriaxone, pantoprazole, and octreotide, will be initiated. Routine labs, including hepatic function panel, testing, and type and screen will also be obtained. Although the patient is slightly tachycardic, she is otherwise hemodynamically stable. My concern for a massive GI bleed is relatively low. It is possible that the patient developed a Mariangel-Hatch tear from vomiting. In the absence of chest pain, concern for esophageal rupture is low. 3:53 AM - Rectal exam performed. Hemoccult negative. 4:00 AM - Care handed over to Dr. Fong at shift change. Disposition pending imaging results. Dr. Familia Pacheco (EM PGY1) P Familia Pacheco M.D. Resident 02/16/22 0414 Jessy Knight M.D., M.S. - 02/16/2022 2:57 AM CDT I have personally seen and examined this patient. I have fully participated in the care of this patient. I have reviewed all clinical information including history, physical exam, orders, and plan. I agree with the note of the resident. 31-year-old female with history of anemia, anxiety, alcoholic cirrhosis of liver with ascites, esophageal varices, GERD, amongst others presents to the ED for evaluation of abdominal pain and hematemesis. Patient states she started feeling unwell around 9:00 p.m. this evening. At that time, she went to the bathroom and felt nauseous, noting that she had one episode of emesis with streaks of blood in it. Shortly thereafter, she had a bowel movement that also had a small amount of blood. With her history, she became concerned and subsequently presents to the ED for evaluation. She does report diffuseabdominal and back pain. No fevers or chills. No chest pain, no lightheadedness, no other concerns. On exam, patient appears well. Hemodynamically stable, afebrile. Scleral icterus. Abdomen soft, diffusely tender. No guarding or rebound. Full range of motion of extremities without difficulty. Nonfocal neuro exam. IRP: Abdominal pain GI bleed History of esophageal varices 31-year-old female with extensive GI history including alcoholic cirrhosis and esophageal varices presents to the ED for evaluation of abdominal pain, hematemesis, and blood in her stools. On exam, appears well. Mildly tachycardic, but otherwise hemodynamically stable. Afebrile. Exam notable for diffuse tenderness, but not peritoneal. Patient was for significant GI bleed setting of esophageal varices, although currently is hemodynamically stable. Will start basic labs, including type and screen and re-evaluate for disposition. ED Course as of 02/16/22712 Mon Feb 16, 2022 0448 Recheck patient; results reviewed. LFTs stable. CBC stable. CT with ascites, otherwise grossly non focal. Stool heme negative--suspect blood in the stool was related to her hemorrhoid. Blood in her emesis possibly related to MW tear. At this point, I think she is safe for discharge home. Discussed at length discharge plan, reasons to return and follow up. Patient understands and agrees with plan. Final Diagnoses: as of 02/16/22712 Abdominal Pain Nausea And Vomiting Jessy Knight M.D., M.S. 02/16/22712 documented in this encounter Plan of Treatment Upcoming Encounters Date Type Specialty Care Team Description Telemedicine Transplant 2 Appointment Radiology Matthew Jerome 2 Tyrell Rodriguez M.D. [address] [place] [phone] Appointment Gastroenterology and [place], 2 Hepatology Yue Burciaga M.D. [address] [place] [phone] Virtual Visit Transplant Matthew Jerome 2 Tyrell Rodriguez M.D. [address] [place] [phone] Office Visit Gastroenterology and Matthew Jerome 2 Hepatology Tyrell Rodriguez M.D. [address] [place] [phone] Appointment Radiology Matthew Jerome 2 YTyrell M.D. [address] [place] [phone] Hospital Gastroenterology and [facility] Cirrhos is Alcoholic (HCC) 2 Encounter Hepatology Tyrell Rodriguez M.D. [address] [place] [phone] Anesthesia Event Gastroenterology and Rl, 2 Hepatology Ervin Burgos M.D. [address] [place] [phone] Surgery Gastroenterology and [facility] ESOPHAG OGASTRODUODENOSCOPY 2 Hepatology Tyrell Rodriguez M.D. 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 DX CHEST AP OR PA RAD - Semiurgent 02/16/2022 3:55 Res ults for this AND LATERAL 2 VIEWS (Fast; most ED AM CDT proced ure are in patients; some the results inpatients) section. ETHANOL, S STAT 02/16/2022 3:00 Results for this AM CDT procedure are i n the results section. HEPATIC FUNCTION STAT 02/16/2022 3:00 Results for this PANEL, S AM CDT procedure are i n the results section. PROTHROMBIN TIME STAT 02/16/2022 3:00 Results for this (PT), P AM CDT procedure are i n the results section. CBC WITH STAT 02/16/2022 3:00 Results for this DIFFERENTIAL, B AM CDT procedure ar e in the results section. TYPE AND SCREEN STAT 02/16/2022 3:00 Results f or this AM CDT procedure are i n the results section. HUMAN CHORIONIC STAT 02/16/2022 3:00 Results f or this GONADOTROPIN (HCG), AM CDT procedur e are in EDDI, the results section. LIPASE, S/P STAT 02/16/2022 3:00 Results for this AM CDT procedure are i n the results section. BASIC METABOLIC STAT 02/16/2022 3:00 Results f or this PANEL, S/P AM CDT procedure are i n the results section. documented in this encounter Results CT Abdomen Pelvis with IV Contrast (02/16/2022 4:15 AM CDT) Anatomical Region Laterality Modality Abdomen, [...] and Lateral 2 Views (02/16/2022 3:55 AM CDT) Anatomical Region Laterality Modality Chest, [...] Familia Pacheco M.D. IMG DIAGNOSTIC IMAGING PROCE DURES hCG (Human Chorionic Gonadotropin), Quantitative, (02/16/2022 3:00 AM CDT) athologist Signature HCG, 0.5 <5 IU/L 02/16/2022 [facility] Quantitative, 3:41 AM CDT , P Specimen Anatomical Collection Method Collection Time Receive d Time (Source) Location / / Volume Laterality Blood (Blood, 02/16/2022 3:00 AM 02/17/20 3:29 Venous) CDT AM CDT Jessy Knight M.D., M.S. LAB BLOOD ADD-ON Performing Organization Address [facility] Phon e Number [facility] [address] (ABNORMAL) Prothrombin Time (PT) (02/16/2022 3:00 AM CDT) [facility] gist Method Time Signature Prothrombin 30.0 (H) 9.4 - 12.5 02/16/2022 [facility] Time, P sec 3:14 AM CDT INR 2.7 0.9 - 1.1 02/16/2022 [facility] 3:14 AM CDT Comment: ----ADDITIONAL INFORMATION---- Standard intensity warfarin therapeutic range: 2.0 to 3.0 ?? High intensity warfarin therapeutic rang e: 2.5 to 3.5 Specimen Anatomical Collection Method Collection Time Receive d Time (Source) Location / / Volume Laterality Blood (Blood, 02/16/2022 3:00 AM 02/17/20 3:07 Venous) CDT AM CDT Familia Pacheco M.D. LAB BLOOD ADD-ON Performing Organization Address City/[facility] Phon e Number [facility] - [address] Ethanol Level, Serum (02/16/2022 3:00 AM CDT) P athologist Signature Ethanol, S <10 <10 mg/dL 02/16/2022 3:49 DTL AM CDT Specimen Anatomical Collection Method Collection Time Receive d Time (Source) Location / / Volume Laterality Blood (Blood, 02/16/2022 3:00 AM 02/17/20 3:26 Venous) CDT AM CDT Familia Pacheco M.D. LAB BLOOD NON ADD-ON Performing Organization Address City/[facility] Phon e Number [facility] - [address] [place] [id number] [address] Lipase (02/16/2022 3:00 AM CDT) P athologist Signature Lipase, S 25 13 - 60 U/L 02/16/2022 3:49 DTL AM CDT Specimen Anatomical Collection Method Collection Time Receive d Time (Source) Location / / Volume Laterality Blood (Blood, 02/16/2022 3:00 AM 02/17/20 3:26 Venous) CDT AM CDT Familia Pacheco M.D. LAB BLOOD ADD-ON Performing Organization Address City/[facility] Phon e Number [facility] - [address] (ABNORMAL) Hepatic Function Panel (02/16/2022 3:00 AM CDT) Patholo gist Method Time Signature [...] Code Phon e Number [facility] - [address] [place], [place] [address] [facility] [place] [address] [facility] [address] (ABNORMAL) Basic Metabolic Panel (02/16/2022 3:00 AM CDT) P athologist Signature Potassium, P 3.9 3.6 [...] - 10.0 mg/dL 02/16/2022 3:28 AM CDT STMA Glucose, P 146 (H) 70 - 140 mg/dL 02/16/2022 3:28 AM CDT S TMA Specimen Anatomical Collection Method Collection Time Receive d Time (Source) Location / / Volume Laterality Blood (Blood, 02/16/2022 3:00 AM 02/17/20 3:07 Venous) CDT AM CDT Familia Pacheco M.D. LAB BLOOD ADD-ON Performing Organization Address City/[facility] Phon e Number [facility] - [address] [place], [place] [address] [facility] [place] [address] [facility] 200 [facility] Type and Screen (with reflex Antibody ID) (02/16/2022 3:00 AM CDT) [facility] MtoV Method Time Signature ABORh B Pos Not [...] BANK TEST ORDERABL ES Performing Organization Address City/[facility] Phon e Number [facility] - [address] [place], [place] [address] [facility] [place] [address] [facility] (ABNORMAL) CBC with Differential, Blood (02/16/2022 3:00 AM CDT) [facility] Method Time Signature Hemoglobin 8.5 (L) 11.6 [...] Code Phon e Number [facility] - [address] [place], [place] [address] [place] [address] [facility] [address] documented in this encounter Visit Diagnoses Diagnosis Cirrhosis Alcoholic (HCC) Abdominal Pain - Primary Nausea And Vomiting Cirrhosis Alcoholic (HCC) Hypertension Portal (HCC) documented in this encounter Administered Medications Inactive Administered Medications - up to 3 most recent administrations Medication Order MAR Action Action Date Dose Rate Site cefTRIAXone injection 2 g (ROCEPHIN) Given 02/16/2022 3:09 AM CDT 2 g 2 g, intravenous, Once, On 02/16/22 at 0230, For 1 dose, Adminster IV push over 3 minutes., Drug Monitoring Program: Pharmacist to adjust medication dosing based on indication and drug clearance factors., Indications: Prophylaxis, medical HYDROmorphone (PF) injection 0.5 mg Given 02/16/2022 3:17 AM CDT 0.5 mg (DILAUDID) 0.5 mg, intravenous, Once, On Wed02/16/22 at 0239, For 1 dose HYDROmorphone (PF) injection 0.5 mg Given 02/16/2022 4:59 AM CDT 0.5 mg (DILAUDID) 0.5 mg, intravenous, Once, On Wed02/16/22 at 0449, For 1 dose iohexoL 350 mg iodine/mL solution 1-200 mL Given 02/16/2022 4:06 AM CDT 50 mL (OMNIPAQUE) 1-200 mL, intravenous, Once in imaging, contrast, Starting on Wed02/16/22 at 0353, For 1 dose, Imaging Protocol Orders, Dose per Radiant Medication Guidelines lactated Ringer's bolus 1,000 mL New Bag 02/16/2022 4:25 AM CDT 1,000 mL 1000 mL/hr 1,000 mL, intravenous, at 1,000 mL/hr, Administer over 1 Hours, Once, On Wed02/16/22 at 0351, For 1 dose octreotide injection 50 mcg (SandoSTATIN ) Given 02/16/2022 3:31 AM CDT 50 mcg 50 mcg, intravenous, Once, On Wed02/16/22 at 0243, For 1 dose, Refrigerate. Protect from light. pantoprazole injection 40 mg (PROTONIX) Given 02/16/2022 3:22 AM CDT 40 mg 40 mg, intravenous, Once, On Wed02/16/22 at 0230, For 1 dose, Administer IV push over 2 minutes. Add 10 mL NS to 40 mg vial for a final concentration of 4 mg/mL. sodium chloride (PF) 0.9 % injection 1-1 00 mL Given 02/16/2022 4:06 AM CDT 50 mL 1-100 mL, intravenous, Once, On Wed02/16/22 at 0354, For 1 dose, Imaging Protocol Orders sodium chloride 0.9 % injection 10 mL 10 mL, intravenous, As needed, line care, Starting on Wed02/16/22 at 0227, Peripheral Intravenous Catheter and Rapid Infusion Cat heter, prior to blood sampling, post blood transfusion or post blood samplin g sodium chloride 0.9 % injection 3 mL 3 mL, intravenous, As needed, line care, Starting on Wed02/16/22 at 0227, Prior to and following infusion and between multi ple consecutive infusions: sodium chloride 0.9 % injection sodium chloride 0.9 % injection 3 mL 3 mL, intravenous, Every 12 hours schedu led, First dose on Wed02/16/22 at 0900, Peripheral Intravenous Catheter and Rapi d Infusion Catheter, when no infusion to maintain patency documented in this encounter Active and Recently Administered Medications Times are shown in CDT. Scheduled Medication Order 02/14/2022 02/15/2022 02/16/2022 cefTRIAXone injection 2 g (ROCEPHIN) (COMPLETED) 030 (Given - Provider: Juan Cassidy R.N.) 2 g, intravenous, Once, On Wed02/16/22 at 0230, For 1 dose, Adminster IV push over 3 minutes., Drug Monitoring Program: Pharmacist to adjust medication dosing based on indication and drug clearance factors., Indications: Prophylaxis, medical HYDROmorphone (PF) injection 0.5 mg (DILAUDID) (COMPLETED) 0317 (Given - Provider: Juan Cassidy R.N.) 0.5 mg, intravenous, Once, On Wed02/16/22 at 0239, For 1 dose HYDROmorphone (PF) injection 0.5 mg (DILAUDID) (COMPLETED) 0459 (Given - Provider: Juan Cassidy R.N.) 0.5 mg, intravenous, Once, On Wed02/16/22 at 0449, For 1 dose lactated Ringer's bolus 1,000 mL (COMPLETED) 0425 (New Bag - Provider: Juan Cassidy R.N.)0616 (Stopped - Provider: Juan Cassidy R.N.) 1,000 mL, intravenous, at 1,000 mL/hr, A dminister over 1 Hours, Once, On Wed02/16/22 at 0351, For 1 dose octreotide injection 50 mcg (SandoSTATIN) (COMPLETED) 033 (Given - Provider: Juan Cassidy R.N.) 50 mcg, intravenous, Once, On Wed at 0243, For 1 dose, Refrigerate. Protect from light. pantoprazole injection 40 mg (PROTONIX) (COMPLETED) 032 (Given - Provider: Juan Cassidy R.N.) 40 mg, intravenous, Once, On Wed 2 at 0230, For 1 dose, Administer IV push over 2 minutes. Add 10 mL NS to 40 mg vial for a final concentration of 4 mg/mL. sodium chloride (PF) 0.9 % injection 1-100 mL (COMPLETED) 0406 (Given - Provider: Elena Robertson R.N.) 1-100 mL, intravenous, Once, On 01/31 at 0354, For 1 dose, Imaging Protocol Orders sodium chloride 0.9 % injection 3 mL 3 mL, intravenous, Every 12 hours schedu led, First dose on Wed02/16/22 at 0900, Peripheral Intravenous Catheter and Rapid Infusion Catheter, when no infusion to maintain patency PRN Medication Order 02/14/2022 02/15/2022 02/16/2022 iohexoL 350 mg iodine/mL solution 1-200 mL (OMNIPAQUE) (COMPLETE D) 0406 (Given - Provider: Elena Robertson R.N. - Comment: [id number]) 1-200 mL, intravenous, Once in imaging, contrast, Starting on Wed02/16/22 at 0353, For 1 dose, Imaging Protocol Orders, Dose per Radiant Medication Guidelines sodium chloride 0.9 % injection 10 mL 10 mL, intravenous, As needed, line care , Starting on Wed02/16/22 at 0227, Peripheral Intravenous Catheter and Rapid Infusion Catheter, prior to blood sampling, post blood transfusion or post blood sampling sodium chloride 0.9 % injection 3 mL 3 mL, intravenous, As needed, line care, Starting on Wed02/16/22 at 0227, Prior to and following infusion and between multiple consecutive infusions: sodium chloride 0.9 % injection documented in this encounter Additional Health Concerns Assessment Noted Time PHQ-9 Depression Total Score: 10 10/06/2021 5:00 PM CD T documented as of this encounter Care Teams Research Associate Professor Relationship Specialty Start Date End Date Ana Red P.A.-C. PCP - General Internal Medicine 12/01/[address] [place] [address] Santi ADI PANIAGUA [phone] [facility] 08/25/21 Ervin Schroeder MD Referring Provider Family Medicine 11/22/[address] [place] [address] documented as of this encounter
--- OUTSIDE RECORDS SUMMARY | 2022-02-16 12:15 | XMS_ITS | Encounter Summary ---
:1990 Author Organization [facility] Address [address] [place] [address] Care Team Providers Name Role Phone Ana Red P.A.-C. Primary Care Provider Reason for Referral Outpatient (Routine) - Authorized Specialty Diagnoses / Procedures Referred By Contact Refer red To Contact [facility] Internal Ana Red [facility] PAshish [address] [facility] [place] [address] Referral ID Status Reason Start Date Expiration Date Visits V isits Requested Authorized [id number] Authorized 02/11/2022 02/10/2025 1 1 Reason for Visit Reason Comments Post Ed Visit Follow-up Recently found out she has 2 fractures in spine. Concerns about oxycodone use. Appointment Request (Routine) - Closed Specialty Diagnoses / Procedures Referred By Contact Tabatha lamar To Contact Community Internal Medicine Referral ID Status Reason Start Date Expiration Date Visits Requ ested Visits Authorized [id number] Closed 01/28/2022 01/28/2023 1 1 Encounter Details Date Type Department Care Team Description 02/11/2022 Office Visit Department of [facility], Fracture T11-1 2 Wedge Compression Sequela (Primary Dx); Community Internal Ana, Cirrhosis Alcoholic (HCC); Medicine in P.A.-C. Hypertension Portal (HCC); [place], [place] [address] Thrombocytopenia (HCC); [address] [place] Abnormal Liver Function Test ; [place] [address] Hepatic Encephalopathy Without Coma (HCC ); [phone] [...] you attend yazidi or Patient refused 2021 adventism services? 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 [address] [place] [address] [phone] Appointment Gastroenterology and Adrianne, 2 Hepatology Yue Burciaga M.D. [address] [place] [phone] Virtual Visit Transplant Matthew Jerome 2 YTyrell M.D. [address] [place] [phone] Office Visit Gastroenterology and Matthew Jerome 2 Hepatology Tyrell Rodriguez M.D. [address] [place] [address] [phone] Appointment Radiology Luischantell Matthew 2 Tyrell Rodriguez M.D. [address] [place] [phone] Hospital Gastroenterology and Matthew Jerome Cirrhos is Alcoholic (HCC) 2 Encounter Hepatology Tyrell Rodriguez M.D. [address] [place] [phone] Anesthesia Event Gastroenterology and Rl, 2 Hepatology Ervin Burgos M.D. [address] [place] [address] [phone] Surgery Gastroenterology and Matthew Jerome ESOPHAG OGASTRODUODENOSCOPY 2 Hepatology Tyrell Rodriguez M.D. [address] [place] [phone] Scheduled Orders Name Type Priority Associated Diagnoses Order S [facility] Basic Metabolic Panel Lab Routine Cirrhosis Alcoholic [...] Alc oholic (HCC) 03/20/2022 8:45 AM ASSEMBLER ARRANGER Hypertension Portal (HCC) Scheduled Referrals Name Type Priority Associated Diagnoses Order S [facility] Internal Outpatient Referral Routine Ex pected: Medicine [...] as of this encounter Care Teams Press Worker Helper Relationship Specialty Start Date End Date Ana Red P.A.-C. PCP - General Internal Medicine 12/01/[address] [place] [phone] [facility] 08/25/21 Ervin Schroeder MD Referring Provider Family Medicine 03/24/[address] [place] [address] documented as of this encounter
--- OUTSIDE RECORDS SUMMARY | 2022-02-16 12:15 | XMS_ITS | Encounter Summary ---
:1990 Author Organization [facility] Address [address] [place] [address] Care Team Providers Name Role Phone Ana Red P.A.-C. Primary Care Provider [phone] Reason for Visit Reason Comments Post Hospital Follow-up Encounter Details Date Type Department Care Team Description 02/10/2022 Clinical Communication Department of [facility] Internal Myrtle Govea Follow-up Medicine in [address] [place] [address] [facility] [place] [phone] (Work) [phone] Social History Tobacco Use Types Packs/Day Years [...] you attend mandaeism or Patient refused 2021 caodaism services? 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 - 02/10/2022 12:08 PM CDT Unable to complete FU call. Patient spoke with [facility] this am due to symptoms she was experiencing. Patient was advised to present to the ED. From notes, it appears as though she is currently at [facility]. They were trying to get her transferred to [facility], no beds available, they wereadvised to call again in 24 hours. Telephone Encounter - Xuan Malcolm R.N. - 02/10/2022 7:42 AM CDT Catia Carias is not eligible for the Adult Medical Care Coordination Program and needs the PHFU call to be completed. Patient was dismissed from the [facility] hospital on 02/09/[address] [facility] Exclusion Criteria: Evaluating for Liver Transplant Pt has PHFU appts on 02/11/22 and 02/13/22- clarify which appointment patient will attend documented in this encounter Plan of Treatment Upcoming Encounters Date Type Specialty Care Team Description Telemedicine Transplant 2 Appointment Radiology Matthew Jerome 2 Tyrell Rodriguez M.D. [address] [place] [address] [phone] Appointment Gastroenterology and Adrianne, 2 Hepatology Yue Burciaga M.D. [address] [place] [phone] Virtual Visit Transplant Matthew Jerome 2 Tyrell Rodriguez M.D. [address] [place] [address] [phone] Office Visit Gastroenterology and Matthew Jerome 2 Hepatology Tyrell Rodriguez M.D. [address] [place] [address] [phone] Appointment Radiology Matthew Jerome 2, M.B.B.S., M.D. [address] [place] [address] [phone] Hospital Gastroenterology and Matthew Jerome Cirrhos is Alcoholic (HCC) 2 Encounter Hepatology Tyrell Rodriguez M.D. [address] [place] [address] [phone] Anesthesia Event Gastroenterology and Rl, 2 Hepatology Ervin Burgos M.D. [address] [place] [address] [phone] Surgery Gastroenterology and Mousa, Matthew ESOPHAG OGASTRODUODENOSCOPY 2 Hepatology Tyrell Rodriguez M.D. [address] [place] [address] [phone] Scheduled Procedures Name Priority Associated Diagnoses Date/Time ESOPHAGOGASTRODUODENOSCOPY Cirrhosis Alc oholic (HCC) 03/20/2022 8:45 AM GEOPHYSICS PROFESSOR Hypertension Portal (HCC) documented as of this encounter Visit Diagnoses Not on filedocumented in this encounter Additional Health Concerns Assessment Noted Time PHQ-9 Depression Total Score: 10 10/06/2021 5:00 PM CD T documented as of this encounter Care Teams Brim Stretcher Relationship Specialty Start Date End Date Ana Red P.A.-C. PCP - General Internal Medicine 12/01/[address] [place] [address] [place] [phone] [facility]- [facility] 08/25/21 Ervin Schroeder MD Referring Provider Family Medicine 03/24/[address] [place] [address] [place] [address] documented as of this encounter
--- OUTSIDE RECORDS SUMMARY | 2022-02-16 12:15 | XMS_ITS | Encounter Summary ---
:1990 Author Organization [facility] Address [address] [place] [address] Care Team Providers Name Role Phone Ana Red P.A.-C. Primary Care Provider [phone] Encounter Details Date Type Department Care Team Description 02/13/2022 Clinical Communication Department of Debra Red [facility] Farida Perez Medicine in [address] [phone] [place], [place] [phone] (Work) [phone] Social History Tobacco Use Types Packs/Day Years [...] you attend hoahaoism or Patient refused 2021 buddhism services? 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 [address] [place] [phone] Virtual Visit Transplant Matthew Jerome 2 Y, Kishore.B.Kath, Lilian [address] [place] [address] [phone] Office Visit Gastroenterology and [facility] 2 Hepatology Tyrell Rodriguez M.D. [address] [place] [address] [phone] [facility] Matthew 2 YTyrell M.D. [address] [place] [address] [phone] Hospital Gastroenterology and [facility] Cirrhos is Alcoholic (HCC) 2 Encounter Hepatology Tyrell Rodriguez M.D. [address] [place] [phone] Anesthesia Event Gastroenterology and Rl, 2 Hepatology Ervin Burgos M.D. [address] [place] [address] [phone] Surgery Gastroenterology and [facility] ESOPHAG OGASTRODUODENOSCOPY 2 Hepatology Tyrell Rodriguez M.D. [address] [place] [address] [phone] Scheduled Procedures Name Priority Associated Diagnoses Date/Time ESOPHAGOGASTRODUODENOSCOPY Cirrhosis Alc oholic (HCC) 03/20/2022 8:45 AM DAILY SALES AUDIT CLERK Hypertension Portal (HCC) documented as of this encounter Visit Diagnoses Not on filedocumented in this encounter Additional Health Concerns Assessment Noted Time PHQ-9 Depression Total Score: 10 10/06/2021 5:00 PM CD T documented as of this encounter Care Teams Windows Security Analyst Relationship Specialty Start Date End Date Ana Red P.A.-C. PCP - General Internal Medicine 12/01/[address] [place] [address] ADI Chua [phone] [facility] 08/25/21 Ervin Schroeder MD Referring Provider Family Medicine 03/24/[address] [place] [address] documented as of this encounter
--- OUTSIDE RECORDS SUMMARY | 2022-02-16 12:15 | XMS_ITS | Encounter Summary ---
:1990 Author Organization [facility] Address [address] [place] [address] Care Team Providers Name Role Phone Ana Red P.A.-C. Primary Care Provider [phone] Encounter Details Date Type Department Care Team Description 02/15/2022 Orders Only Department of Gastroenterology Amy Jerome in [place], Kaelyn Santillan M.D. 10[address] [facility] 1025 [place] [address] [place], [place] [phone] (Wo rk) Social History Tobacco Use [...] you attend islam or Patient refused 2021 restorationism services? 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 [address] [place] [phone] Virtual Visit Transplant Matthew Jerome 2 YKishore.B.SSuma, Lilian [address] [place] [phone] Office Visit Gastroenterology and [facility] 2 Hepatology Tyrell Rodriguez M.D. [address] [place] [phone] Appointment Radiology [facility] 2 Tyrell Rodriguez M.D. [address] [place] [phone] [facility] Gastroenterology and [facility] Cirrhos is Alcoholic (HCC) 2 Encounter Hepatology Tyrell Rodriguez M.D. [address] [place] [phone] Anesthesia Event Gastroenterology and Rl, 2 Hepatology Ervin Burgos M.D. [address] [place] [phone] Surgery Gastroenterology and [facility] ESOPHAG OGASTRODUODENOSCOPY 2 Hepatology Tyrell Rodriguez M.D. [address] [place] [phone] Scheduled Procedures Name Priority Associated Diagnoses Date/Time ESOPHAGOGASTRODUODENOSCOPY Cirrhosis Alc oholic (HCC) 03/20/2022 8:45 AM FERN PICKER Hypertension Portal (HCC) documented as of this encounter Visit Diagnoses Not on filedocumented in this encounter Additional Health Concerns Assessment Noted Time PHQ-9 Depression Total Score: 10 10/06/2021 5:00 PM CD T documented as of this encounter Care Teams Product/Industry Consultant Relationship Specialty Start Date End Date Ana Red P.A.-C. PCP - General Internal Medicine 12/01/[address] [place] [address] ADI Chua [phone] [facility]- [facility] 08/25/21 Ervin Schroeder MD Referring Provider Family Medicine 03/24/[address] [place] [address] ADI Mejía [address] documented as of this encounter
--- OUTSIDE RECORDS SUMMARY | 2022-02-16 12:16 | XMS_ITS | Encounter Summary ---
:1990 Author Organization [facility] Address [address] [place] [address] Care Team Providers Name Role Phone Ana Red P.A.-C. Primary Care Provider [phone] Encounter Details Date Type Department Care Team Description 02/04/2022 Orders Only RST HIM Sara Gracia R, [address] [place] [phone] [place] [phone] (Wo rk) Social History Tobacco Use Types [...] you attend pentecostal or Patient refused 2021 hinduism services? 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 [address] [place] [phone] Virtual Visit Transplant Matthew Jerome 2 Y, VikBGraeme, Lilian [address] [place] [phone] Office Visit Gastroenterology and [facility] 2 Hepatology Tyrell Rodriguez M.D. [address] [place] [phone] Appointment Radiology Wichantell Matthew 2 YTyrell M.D. [address] [place] [phone] Hospital Gastroenterology and [facility] Cirrhos is Alcoholic (HCC) 2 Encounter Hepatology Tyrell Rodriguez M.D. [address] [place] [phone] Anesthesia Event Gastroenterology and Rl, 2 Hepatology Ervin Burgos M.D. [address] [place] [phone] Surgery Gastroenterology and [facility] ESOPHAG OGASTRODUODENOSCOPY 2 Hepatology Tyrell Rodriguez M.D. [address] [place] [phone] Scheduled Procedures Name Priority Associated Diagnoses Date/Time ESOPHAGOGASTRODUODENOSCOPY Cirrhosis Alc oholic (HCC) 03/20/2022 8:45 AM VAULT MANAGER Hypertension Portal (HCC) documented as of this encounter Visit Diagnoses Not on filedocumented in this encounter Additional Health Concerns Assessment Noted Time PHQ-9 Depression Total Score: 10 10/06/2021 5:00 PM CD T documented as of this encounter Care Teams Crew Truck Driver Relationship Specialty Start Date End Date Ana Red P.A.-C. PCP - General Internal Medicine 12/01/[address] [place] [address] ADI Chua [phone] [facility]- [facility] 08/25/21 Ervin Schroeder MD Referring Provider Family Medicine 03/24/[address] [place] [address] documented as of this encounter
--- OUTSIDE RECORDS SUMMARY | 2022-02-16 12:16 | XMS_ITS | Encounter Summary ---
:1990 Author Organization [facility] Address [address] [place] [address] Care Team Providers Name Role Phone Ana Red P.A.-C. Primary Care Provider [phone] Reason for Visit Reason Comments Phone Contact RN and MD follow up Encounter Details Date Type Department Care Team Description 02/04/[address] [facility] Phone Contact (RN Communication Gastroenterology in Y, M.B.B.S., and MD follow up) [place], [place] MJules 1025 [facility] 1025 [place] [address] [facility] [phone] [place] [phone] Social History Tobacco Use Types Packs/Day Years [...] you attend scientology or Patient refused 2021 roman catholic services? Do you belong to any clubs or No 02/10/2022 organizations such as scientology groups, unions, fraSpectra Analysis [employer] or athletic groups, or school groups? 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 Jerome moved up to [facility]. When I spoke with patient she stated Dr. Jerome is great but she'd rather see a [facility] provider. She says [place] keeps cancelling appts without telling her. Wasn't sure if we were able to schedule with clinic MD and schedule phone screen virtually? Please advise and I will call pt back to confirm appts. Thank you! documented in this encounter Plan of Treatment Upcoming Encounters Date Type Specialty Care Team Description Telemedicine Transplant 2 Appointment Radiology Matthew Jerome 2 Y, Tyrell, Lilian [address] [place] [phone] Appointment Gastroenterology demian Silver, 2 Hepatology Yue Burciaga M.D. [address] [place] [phone] Virtual Visit Transplant Matthew Jerome 2 YTyrell M.D. [address] [place] [phone] Office Visit Gastroenterology and Matthew Jerome 2 Hepatology Tyrell Rodriguez M.D. [address] [place] [phone] Appointment Radiology Matthew Jerome 2 YJoshuaBSumaBLilian Bedolla [address] [place] [phone] Hospital Gastroenterology and Matthew Jerome Cirrhos is Alcoholic (HCC) 2 Encounter Hepatology Vik RodriguezBLilian Bedolla [address] [place] [phone] Anesthesia Event Gastroenterology and Rl, 2 Hepatology Ervin Burgos M.D. [address] [place] [address] [phone] Surgery Gastroenterology and Mousa, Matthew ESOPHAG OGASTRODUODENOSCOPY 2 Hepatology Tyrell Rodriguez M.D. [address] [place] [phone] Scheduled Procedures Name Priority Associated Diagnoses Date/Time ESOPHAGOGASTRODUODENOSCOPY Cirrhosis Alc oholic (HCC) 03/20/2022 8:45 AM BIOLOGY FACULTY MEMBER Hypertension Portal (HCC) documented as of this encounter Visit Diagnoses Not on filedocumented in this encounter Additional Health Concerns Assessment Noted Time PHQ-9 Depression Total Score: 10 10/06/2021 5:00 PM CD T documented as of this encounter Care Teams Cob Sawyer Relationship Specialty Start Date End Date Ana Red P.A.-C. PCP - General Internal Medicine 12/01/[address] [place] [phone] [facility]- [place] [facility] 08/25/21 Ervin Schroeder MD Referring Provider Family Medicine 03/24/[address] [place] [address] documented as of this encounter
--- OUTSIDE RECORDS SUMMARY | 2022-02-16 12:16 | XMS_ITS | Encounter Summary ---
:1990 Author Organization [facility] Address [address] [place] [address] Care Team Providers Name Role Phone Ana Red P.A.-C. Primary Care Provider [phone] Reason for Referral Outpatient (Routine) - Pending Review Specialty Diagnoses / Procedures Referred By Contact Refer red To Contact Diagnoses Ascites Chronic Matthew Jerome M.B.BSumaSSuma, [facility] Procedures US Paracentesis with Imaging Guidance Lilian [address] [place] [phone] Referral ID Status Reason Start Date Expiration Date Visits V isits Requested Authorized [id number] Pending 02/08/2022 02/08/2023 1 1 Review Outpatient (Routine) - Pending Review Specialty Diagnoses / Procedures Referred By Contact Refer red To Contact Diagnoses Ascites Chronic Matthew Jreome M.B.BSumaSSuma, [facility] Procedures US Paracentesis with Imaging Guidance Lilian [address] [place] [address] 52 Referral ID Status Reason Start Date Expiration Date Visits V isits Requested Authorized [id number] Pending 02/08/2022 02/08/2023 1 1 Review Outpatient (Routine) - Pending Review Specialty Diagnoses / Procedures Referred By Contact Refer red To Contact Diagnoses Ascites Chronic Matthew Jerome M.B.B.S., [facility] Procedures US Paracentesis with Imaging Guidance M.DSuma [address] [place] [address] 52 Referral ID Status Reason Start Date Expiration Date Visits V isits Requested Authorized [id number] Pending 02/08/2022 02/08/2023 1 1 Review Outpatient (Routine) - Pending Review Specialty Diagnoses / Procedures Referred By Contact Refer red To Contact Diagnoses Ascites Chronic Matthew Jerome M.B.B.S., [facility] Procedures US Paracentesis with Imaging Guidance M.DSuma [address] [place] [address] 52 Referral ID Status Reason Start Date Expiration Date Visits V isits Requested Authorized [id number] Pending 02/08/2022 02/08/2023 1 1 Review Outpatient (Routine) - Pending Review Specialty Diagnoses / Procedures Referred By Contact Refer red To Contact Diagnoses Ascites Chronic Matthew Jerome M.B.B.S., [facility] Procedures US Paracentesis with Imaging Guidance M.DSuma [address] [place] [address] 52 Referral ID Status Reason Start Date Expiration Date Visits V isits Requested Authorized [id number] Pending 02/08/2022 02/08/2023 1 1 Review Encounter Details Date Type Department Care Team Description 02/03/2022 Clinical Communication Department of Matthew Jerome, Gastroenterology in [place] [address] [phone] Social History Tobacco Use Types Packs/Day Years [...] you attend jew or Patient refused 2021 religion services? Do [...] at Date Recorded Female 04/12/2021 7:39 PM [employer] documented as of this encounter Miscellaneous Notes Addendum Note - Matthew Jerome M.B.B.S., M.D. - 02/08/2022 2:41 PM CDT Addended by: MATTHEW JEROME on: 02/08/2022 02:41 PM Modules accepted: Orders Addendum Note - Laura Randhawa L.PSumaNSuma - 02/06/2022 2:13 PM CDT Addended by: LAURA RANDHAWA on: 02/06/2022 02:13 PM Modules accepted: Orders Telephone Encounter - Laura Randhawa L.P.N. - 02/06/2022 1:57 PM CDT Dyeing Machine Feeder called and discussed with the patient that Dr. Jerome felt it was appropriate for her to be seen in March 2022 since she was recently hospitalized and seen in [facility] and that he did not need to follow her the same month as she had been seen in [facility]. Dyeing Machine Feeder explained that I am unsure why she [...] inquired if she should transfer care to [facility] if this is going to continue. Dyeing Machine Feeder verbalized understanding of her frustration but informed [...] wants to see in March pt seeing [place] in January. Dyeing Machine Feeder stated this to patient and she stated that nobody had called her to tell her the appointment had moved, however, Dyeing Machine Feeder stated that our scheduling team in [place] does not change appointments without contacting the patient affected. Patient insisted she was never contacted and became very agitated. Dyeing Machine Feeder stated that a message would be sent [...] Radiology Matthew Jerome 2 Tyrell Rodriguez M.D. [address] [place] [phone] Appointment Gastroenterology demian Silver 2 Hepatology Yue Burciaga M.D. [address] [place] [phone] Virtual Visit Transplant Matthew Jerome 2 Tyrell Rodriguez M.D. [address] [place] [phone] Office Visit Gastroenterology and Matthew Jerome 2 Hepatology Tyrell Rodriguez M.D. [address] [place] [phone] Appointment Radiology Matthew Jerome 2 YVikBLilian Bedolla [address] [place] [phone] Hospital Gastroenterology and Queenie Matthew Cirrhos is Alcoholic (HCC) 2 Encounter Hepatology Vik RodriguezBLilian Bedolla [address] [place] [phone] Anesthesia Event Gastroenterology and Rl, 2 Hepatology Ervin Burgos M.D. [address] [place] [phone] Surgery Gastroenterology and Matthew Jerome ESOPHAG OGASTRODUODENOSCOPY 2 Hepatology Tyrell Rodriguez M.D. [address] [place] [phone] Scheduled Orders Name Type Priority Associated Order [...] Cirrhosis Alc oholic (HCC) 03/20/2022 8:45 AM [employer] Hypertension Portal (HCC) documented as of this encounter Visit Diagnoses Diagnosis Cirrhosis Alcoholic (HCC) Ascites Chronic - Primary Cirrhosis Alcoholic (HCC) Hypertension Portal (HCC) documented in this encounter Additional Health Concerns Assessment Noted Time PHQ-9 Depression Total Score: 10 10/06/2021 5:00 PM CD T documented as of this encounter Care Teams Circular Sawyer Stone Relationship Specialty Start Date End Date Ana Red P.A.-C. PCP - General Internal Medicine 12/01/[address] [place] [phone] [facility] [place] [facility] 08/25/21 Ervin Schroeder MD Referring Provider Family Medicine 03/24/[address] [place] [address] [place] [address] documented as of this encounter
--- OUTSIDE RECORDS SUMMARY | 2022-02-16 12:16 | XMS_ITS | Encounter Summary ---
:1990 Author Organization [facility] Address [address] [place] [address] Care Team Providers Name Role Phone Ana Red P.A.-C. Primary Care Provider [phone] Reason for Visit Reason Comments EGD scheduled for 02/10 Encounter Details Date Type Department Care Team Description 02/09/2022 Clinical Department of Alyssa Arana EGD scheduled for Communication Anesthesiology in S, R.N. 02/10 [place], [place] [address] [facility] [address] [place] [phone] Social History Tobacco Use Types Packs/Day Years [...] you attend tenriism or Patient refused 2021 zoroastrian services? 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 - 02/09/2022 8:41 AM CDT Anuj Jerome Christelle is scheduled for an EGD with you tomorrow based on the order placed 12/10 for varices screening. She states she had an EGD in [place] and 6 varices were banded during that procedure (unable to seedocumentation of that procedure, however there is a note from anesthesia dated 01/26 that she did have an EGD on that date). Pt was contacted by this news writer to go thru preadmission questions and pt is asking if this EGD is needed since she already had it in [place]. Would you like her to have anotherEGD as scheduled tomorrow? Please advise and I can call the patient back. Thank you Alyssa RN Preoperative Kettle Tender documented in this encounter Plan of Treatment Upcoming Encounters Date Type Specialty Care Team Description Telemedicine Transplant 2 Appointment Radiology LuisMatthew abdul 2 YTyrell M.D. [address] [place] [phone] Appointment Gastroenterology demian Silver, 2 Hepatology Yue Burciaga M.D. [address] [place] [phone] Virtual Visit Transplant Matthew Jerome 2 YTyrell M.D. [address] [place] [phone] Office Visit Gastroenterology and Matthew Jerome 2 Hepatology Tyrell Rodriguez M.D. [address] [place] [phone] Appointment Radiology Matthew Jerome 2 YTyrell M.D. [address] [place] [phone] Hospital Gastroenterology and Matthew Jerome Cirrhos is Alcoholic (HCC) 2 Encounter Hepatology Tyrell Rodriguez M.D. [address] [place] [phone] Anesthesia Event Gastroenterology and Rl, 2 Hepatology Ervin Burgos M.D. [address] [place] [phone] Surgery Gastroenterology and Mousa, Matthew ESOPHAG OGASTRODUODENOSCOPY 2 Hepatology Tyrell Rodriguez M.D. [address] [place] [phone] Scheduled Procedures Name Priority Associated Diagnoses Date/Time ESOPHAGOGASTRODUODENOSCOPY Cirrhosis Alc oholic (HCC) 03/20/2022 8:45 AM DATA CONTROL ASSISTANT Hypertension Portal (HCC) documented as of this encounter Visit Diagnoses Not on filedocumented in this encounter Additional Health Concerns Assessment Noted Time PHQ-9 Depression Total Score: 10 10/06/2021 5:00 PM CD T documented as of this encounter Care Teams Potato Spotter Relationship Specialty Start Date End Date Ana Red P.A.-C. PCP - General Internal Medicine 12/01/[address] [place] [phone] [facility] [place] [facility] 08/25/21 Ervin Schroeder MD Referring Provider Family Medicine 03/24/[address] [place] [phone] documented as of this encounter
--- OUTSIDE RECORDS SUMMARY | 2022-02-16 12:16 | XMS_ITS | Encounter Summary ---
:1990 [address] Organization [facility] Address [address] [place] [address] Care Team Providers Name Role Phone Ana Red P.A.-C. Primary Care Provider [phone] Reason for Visit Reason Comments Altered Mental Status Auth/Cert Specialty Diagnoses / Procedures Referred By Contact Refer red To Contact Diagnoses Pain Flank Procedures OBS Referral ID Status Reason Start Date Expiration Date Visits Requ ested Visits Authorized [id number] 1 1 Encounter Details Date Type Department Care Team Description 02/01/2022 - Emergency [facility] Paty Goldberg P.A.-C. [address] [place] [phone] Pain Flank (Primary Dx); 02/03/2022 [facility] David M, M.D. [address] [place] [phone] Ascites Chronic; [facility], Vj Rodrigez M.B., Ch.B. [address] [place] [address] [phone] Thrombocytopenia (HCC); [facility], Cirrhosi s Alcoholic (HCC); Third Floor Hypertension Portal (HCC); [address] [place]normal [place] [phone] Social History Tobacco Use Types Packs/Day Years [...] you attend confucianist or Patient refused 2021 hoahaoism services? 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 Primary Team: [facility] Medicine 3 ([facility]) Primary Care Providers: Ana Red P.A.-C. (General) [address] [place] [phone] Primary Care Provider Primary Care Provider Other [...] P.A.-C. Community Internal Medicine 02/05/2022 3:15 PM [facility] 02 01 Radiology 02/10/2022 3:00 PM TXP PSYCHIATRY 01 [facility] Transplant 02/12/2022 9:20 AM LAB BLOOD [facility] Laboratory Medicine 02/12/2022 9:30 AM LAB URINE CONTAINER [facility] Laboratory Medicine 02/12/2022 11:00 AM TXP COUNSELOR 01 [facility] Transplant 02/18/2022 3:15 PM ROCH 02 RM 01 Radiology 03/02/2022 10:00 AM RM 450 [facility] Gastroenterology and Hepatology 03/04/2022 9:30 AM Matthew Jerome M.B.B.S., M.D. Gastroenterology and Hepatology 03/05/2022 3:15 PM [facility] 02 01 Radiology For appointment details refer [...] AM CDT You were discharged from the [facility] Medicine 3 ([facility]) Service. Please identify this service [...] multivitamin per CPA. Evon Rodriguez Pharm.D., R.Ph. [phone] Sara Gracia M.D. - 02/02/2022 6:04 AM CDT T Medicine 3 ([facility]) PROGRESS NOTE SUBJECTIVE Ms. Carias [...] / PLAN Ms. Carias is hospitalized on [facility] 3 ([facility]) for evaluation and management of [...] (not met): Pain control Plan discussed with [facility] Medicine 3 ([facility]) Director Of Analytical Development, JEAN CARLOS [facility] who was present during judd portions of the evaluation today. Please page the [facility] Medicine 3 ([facility]) service pager at [phone] with any questions. documented in this encounter H&P Notes Vj Rodrigez M.B., Ch.B. - 02/02/2022 5:17 PM CDT I have personally seen and examined aCtia Carias with our medicine team, and I [...] (Acute Kidney Injury) (HCC) Kishore Sotelo., Flash.B., [facility], [facility], FACP Director Of Analytical Development Hospitalist Yue Silver M.D. - 02/01/2022 5:13 PM CDT [facility] Medicine 3 ([facility]) Admission Note SUBJECTIVE CHIEF COMPLAINT [...] She also said she was going to [facility] to meet her doctor. She is not [...] by refractory ascites, who is hospitalized on [place] [address] ([facility]) for evaluation and management of [...] assessment done by: Harlan Monterroso Primary Language: British Application Support Developer Services Used: No Person(s) present during interview: [...] System: Boyfriend Lobito Finance/Insurance Primary insurance: [facility] C[facility] RESTRICTED PLAN Secondary insurance: N/A [...] Communication: Can write, Talks, Understands speaking, Understands British, Reads Shopping: Needs assistance Transportation: Support from family Medication Management: Dependent Housekeeping: Dependent Meal Prep: Dependent Managing Finances: Independent Assistive Devices: Cane, Cellphone, Commode, Medication box, Handrails for stairs, Walker - front wheeled Services/Resources: Home health Agency Name: [facility]note 3] Services Provided: Medication Baseline Services/Resources Primary care clinic and provider: Ana Red P.A.-C. Services/Resources: Home health Additional Resources: Anticipated Needs Functional Status: None Assistive Devices: Emergency call system, Walker - four wheeled, Tub/shower chair/bench Agency Name: [facility] Services Provided: Medication Anticipated Modifications to the Patient's Home: None Transportation Needs: Support from family Does the patient need discharge transport arranged?: No Phone Number for Ride/Caregiver: [phone] Gonzalo Anticipated Discharge Destination: Home or Self Care ASSESSMENT / PLAN Assessment: The business intern met with Catia Carias to discuss her current hospitalization and home goingneeds. The patient was unaccompanied. The patient was a reliable historian. The role of business intern was reviewed. The patient reviewed her prior [...] Lobito with some assistance from the patient. business intern discussed the patient's potential needs at dismissal [...] needs. Home Health Reconnect was completed with [facility] Nurse Misbah Crook. At this time, the care team has not identified any skilled post-hospital discharge care needs that require the assistance of the Care Management Team. After reviewing the patient's chart and meeting with the patient, the business intern deemed the LACE+/readmission questions were not necessary. [...] will be provided by family--Boyfriend Lobito . business intern recommended a shower seat. business intern provided information regarding the dismissal process. business intern placed or requested the following hospital-based consult orders and/or referrals: None. business intern will continue to assess for homegoing needs with the interdisciplinary team. business intern encouraged the patient to reach out with any questions/concerns. Care Management will continue to follow. Signed by: Destiny Aden, M.HVentura, RGabby 02/02/2022 documented in this encounter Nursing [...] establishingcare regarding her potential future transplant through [place]. These concerns were brought up to her [...] condition on 02/03 [facility] and her PCP on 02/05 documented in this encounter Plan of Treatment Upcoming Encounters Date Type Specialty Care Team Description Telemedicine Transplant 2 Appointment Radiology Matthew Jerome 2 YTyrell M.D. [address] [place] [phone] Appointment Gastroenterology and Adrianne, 2 Hepatology Yue Burciaga M.D. [address] [place] [phone] Virtual Visit Transplant Matthew Jerome 2 Tyrell Rodriguez M.D. [address] [place] [address] [phone] Office Visit Gastroenterology and Queenie Matthew 2 Hepatology Tyrell Rodriguez M.D. [address] [place] [phone] Appointment Radiology Matthew Jerome 2 YTyrell M.D. [address] [place] [address] [phone] Hospital Gastroenterology and [facility] Cirrhos is Alcoholic (HCC) 2 Encounter Hepatology Tyrell Rodriguez M.D. [address] [place] [phone] Anesthesia Event Gastroenterology and Rl, 2 Hepatology Ervin Burgos M.D. [address] [place] [address] [phone] Surgery Gastroenterology and [facility] ESOPHAG OGASTRODUODENOSCOPY 2 Hepatology Tyrell Rodriguez M.D. [address] [place] [phone] Scheduled Orders Name Type Priority Associated Diagnoses Order S chedule Bacterial Culture, Microbiology STAT STAT for 1 Occurrences Aerobic + Susc, starting 06/2021 Urine until 2 Gram Stain Microbiology STAT STAT for 1 Occu rrences starting 2021 until 2 Scheduled Procedures Name Priority Associated Diagnoses Date/Time ESOPHAGOGASTRODUODENOSCOPY Cirrhosis Alc oholic (HCC) 03/20/2022 8:45 AM LICENSED PSYCHIATRIC TECHNICIAN Hypertension Portal (HCC) documented as of [...] Impressions 02/02/2022 9:53 AM CDT Ultrasound-guided paracentesis. PILLING MACHINE OPERATOR Narrative 02/02/2022 9:53 AM CDT EXAM: US [...] met. POST-PROCEDURE DIAGNOSIS: Ascites. IMPRESSION: Ultrasound-guided paracentesis. PILLING MACHINE OPERATOR Yue Silver M.D. IMG US PROCEDURES Gram [...] Code Phon e Number [facility] - [address] [place], [place] [address] [facility] [place] [address] Laboratories-[facility] [address] Cell Count and Differential, Body Fluid (02/02/2022 8:54 AM CDT) [facility] Method Time Signature Fluid Type Peritoneal- [...] characteri stics were determined by [facility] in a manner co nsistent with [...] FLUIDS AND STOOLS ORDERABLES Performing Organization Address City/[facility]/ZIP Code Phon e Number [facility] - [address] [place], [place] [address] [facility] [place] [address] [facility] 200 [facility] CK (Creatine Kinase) (02/02/2022 6:14 AM CDT) P athologist Signature Creatine Kinase 29 26 - 192 02/02/2022 DTL (CK), S U/L 7:44 AM CDT Specimen Anatomical Collection Method Collection Time Receive d Time (Source) Location / / Volume Laterality Blood (Blood, 02/02/2022 6:14 AM 02/03/20 22 7:21 Venous) CDT AM CDT Darrick Santillan LAB BLOOD ADD-ON Performing Organization Address City/[facility]/ZIP Code Phon e Number [facility] - [address] [place], [place] [address] [place] [address] [address] (ABNORMAL) Prothrombin Time (PT) (02/02/2022 6:14 [...] Code Phon e Number [facility] - 200 [place], [place] [address] [facility] [place] [place] [address] [facility] 200 [facility] (ABNORMAL) CBC with Differential, Blood (02/02/2022 6:14 AM CDT) [facility] Method Time Signature Hemoglobin 7.3 (L) [...] 02/03/20 7:00 Venous) CDT AM CDT Yue E Doll M.D. LAB BLOOD ADD-ON Performing Organization Address City/[facility] Code Phon e Number [facility] - [address] (ABNORMAL) Basic Metabolic Panel (02/02/2022 6:14 [...] M.D. LAB BLOOD ADD-ON Performing Organization Address City/State/[facility] Code Phon e Number [facility] - 200 [place] [address] [facility] [place] [place] [address] Abdomen Pelvis with IV Contrast [...] Dipstick, POCT, Urine (02/01/2022 1:42 PM CDT) [facility] [employer] Method Time Signature Glucose, 100 (A) Negative 02/01/2022 [facility]ED POCT, U mg/dL 1:44 PM CDT Ketone, POCT, Trace (A) Negative 02/01/2022 [facility] U mg/dL 1:44 PM CDT Specific 1.020 1.005 - 02/01/2022 [facility] [place], 1.030 1:44 PM CDT POCT, U Blood, [...] City/State/ZIP Code Phon e Number POC [facility] [address] [place] [address] OUTPATIENT LABS PCED [facility] [place], [place] [address] [place] [address] (ABNORMAL) Dipstick, Urine (02/01/2022 1:37 PM CDT) [facility] [employer] Method Time Signature Hemoglobin, Negative Negative 02/01/2022 [...] P.A.-C. LAB URINE ORDERABLES Performing Organization Address City/[facility]/ZIP Code Phon e Number [facility] [address] [place], [place] [address] [facility] [place] [place] [address] Osmolality, Urine (02/01/2022 1:37 PM CDT) P athologist Signature Osmolality, U 548 150 - 1150 02/01/2022 DTL mOsm/kg 8:41 PM CDT Specimen Anatomical Collection Method Collection Time Receive d Time (Source) Location / / Volume Laterality Urine 02/01/2022 1:37 PM 2 2:09 CDT PM CDT Paty Goldberg P.A.-C. LAB URINE ORDERABLES Performing Organization Address City/State/ZIP Code Phon e Number [facility] - 200 [place], [place] [address] [facility] [place] [address] pH, Random, Urine (02/01/2022 1:37 PM [...] Code Phon e Number [facility] - [address] [place], [place] [address] [facility] [place] [place] [address] (ABNORMAL) Microscopic Manual (02/01/2022 1:37 PM [...] P.A.-C. LAB URINE ORDERABLES Performing Organization Address City/State/[facility] Code Phon e Number [address] [place] [address] [place] [address] (ABNORMAL) Gram Stain, Urine (02/01/2022 1:37 PM CDT) [facility] Method Time Signature Source Urine, Urine, 02/01/2022 DT Midstream 2:09 PM CDT Gram Stain, U Positive (A) Negative 02/01/2022 DTL 2:36 PM CDT Comment: Many Gram-positive cocci Specimen Anatomical Collection Method Collection Time Receive d Time (Source) Location / / Volume Laterality Urine 02/01/2022 1:37 PM 2 2:08 CDT PM CDT Paty Goldberg P.A.-C. LAB URINE ORDERABLES Performing Organization Address City/State/[facility] Code Phon e Number [address] [address] [facility] [place] [address] (ABNORMAL) Urinalysis with Microscopic: Urine, Midstream [...] P.A.-C. LAB URINE ORDERABLES Performing Organization Address City/[facility] Phon e Number [facility] - [address] [place], [place] [address] [place] [address] DTL [place], [place] [address] [place] [address] First [facility] Lactate (02/01/2022 1:32 PM CDT) P athologist Signature Lactate, P 1.6 0.5 - 2.2 02/01/2022 STMA mmol/L 1:50 PM CDT Specimen Anatomical Collection Method Collection Time Receive d Time (Source) Location / / Volume Laterality Blood (Blood, 02/01/2022 1:32 PM 02/02/20 1:37 Venous) CDT PM CDT Paty Goldberg P.A.-C. LAB BLOOD NON ADD-ON Performing Organization Address City/State/[facility] Phon e Number [facility] - [address] [place], [place] [address] [facility] [place] [address] [place] [address] DX Chest AP or PA [...] Blood # 2 (02/01/2022 10:47 AM CDT) [facility] gist Method Time Signature Bacteria/Adriana No [...] Code Phon e Number [facility] - [address] [place], [place] [address] [facility] [place] [place] [address] Lactate, POCT (02/01/2022 10:36 AM CDT) Analysis Performed At Patho logist Time Signature Lactate, POCT Collected DEFAULT 02/01/2022 SMLX 10:36 AM CDT Specimen Anatomical Collection Method Collection Time Receive d Time (Source) Location / / Volume Laterality Blood (Blood, 02/01/2022 10:36 02/01/2022 Venous) AM CDT 10:36 AM CDT Paty Goldberg P.A.-C. LAB POCT ORDERABLES - DEVICE Performing Organization Address City/[facility] Phon e Number [facility] - 200 [place], [place] [address] [place] [address] [place] [address] Venous Blood Gas and Electrolytes CG8+, [...] POCT ORDERABLES - DEVICE Performing Organization Address City/[facility]/ZIP Code Phon e Number [facility] - [address] [place] [address] [place] [address] Bacteria / Raudel Culture, Blood #1 [...] - GENERAL O RDERABLES Performing Organization Address City/[facility] Phon e Number [facility] - 200 [place] [address] Laboratories-[address] (ABNORMAL) Hepatic Function Panel (02/01/2022 10:34 AM CDT) [facility] [employer] Method Time Signature Bilirubin, Total, S 10.7 [...] P.A.-C. LAB BLOOD ADD-ON Performing Organization Address City/State/[facility] Phon e Number [facility] - [address] (ABNORMAL) CBC with Differential, Blood (02/01/2022 10:34 AM CDT) [facility] [employer] Method Time Signature Hemoglobin 7.9 (L) 11.6 [...] Code Phon e Number [facility] - [address] [place], [place] [address] [facility] [place] [address] [facility] [address] (ABNORMAL) Basic Metabolic [...] Code Phon e Number [facility] - [address] [place], [place] [address] [place] [address] [facility] [address] (ABNORMAL) Ammonia (02/01/2022 10:34 AM CDT) athologist Signature Ammonia, P 68 (H) <=30 02/01/2022 DTL mcmol/L 11:32 AM CDT Specimen Anatomical Collection Method Collection Time Receive d Time (Source) Location / / Volume Laterality Blood (Blood, 02/01/2022 10:34 02/01/2022 Venous) AM CDT 10:59 AM CDT Paty Golbderg P.A.-C. LAB BLOOD NON ADD-ON Performing Organization Address City/[facility] Phon e Number [facility] - 200 [place], [place] [address] [facility] [place] [address] [facility] 200 [facility] Lactate, POCT (02/01/2022 10:31 AM CDT) [...] POCT ORDERABLES - DEVICE Performing Organization Address [facility] Phon e Number POC [facility] [address] [place] [address] [place] [address] [facility] 200 [facility] (ABNORMAL) Venous Blood Gas and Electrolytes [...] City/State/ZIP Code Phon e Number POC [facility] INPATIENT [address] [place], [place] [address] LABS [facility] [place] [address] [place] POC [address] [place] [address] ECG 12 Lead (02/01/2022 10:22 AM CDT) P athologist Signature Ventricular Rate 91 BPM MUSE ECG/Min [place] Interval 152 ms MUSE QRSD Interval 86 ms MUSE QT Interval 398 ms MUSE QTC Interval 489 ms MUSE P [place] -3 degrees MUSE R [place] 16 degrees MUSE T Wave [place] 5 degrees MUSE Specimen Anatomical Collection Method [...] Administer the 25% solution at 100 mL/hr rgmlknuwxdaox-svryfpasls-cwqxlmci in Lipoderm Given 02/03/2022 8 :54 AM [...] daily, First dose (after last modification) on [place] 02/01/22 at 2100 Given 02/03/2022 8:54 AM [...] Given 02/02/2022 6:25 AM CDT 400 mg pjddjzzjppjo-bavs-GV-Ca-minerals 400 mcg Given 02/03/2022 8:55 A M [...] human 25 % injection 25 g (COMPLETED) 1146 (New Bag - Provider: Nabila Traore R.N.) 25 g, intravenous, Once, On Wed02/02/22 at 1100, For 1 dose, If no infusion rate specified: Administer the 25% solution at 100 mL/hr czfnvmgzrywvl-votmpzeupg-bwzwrzyk in Lipoderm 2%-5%-5% cream 1 g 2039 [...] (LASIX) 1025 (Gi ekaterina - Provider: Nabila Traoer R.N.) 0856 (Given - Provider: Suleman Rivas R.N.) 40 mg, oral, Daily, First dose (after last modificatio n) on Wed02/02/22 at 0900 heparin (porcine) injection 5,000 Units 211 (Not Give n - Provider: Elena Worthington R.N. - Reason: Patient/family refused) 0625 (Given - Provider: Harish Massey RSumaDaniele)1345 (Not Given - Provider: Nabila Traore R.N. [...] dinner, First dose on Wed02/02/22 at 0700 sgwravinclnr-vruc-GG-Ca-minerals 400 mcg (folic acid) tablet 1 tablet [...] (DESYREL) 2215 (Given - Provider: Tomi Worthington RSumaNSuma) 2054 (Given - Provider: Andrew AmandaNSuma) 50 [...] mg (ZINCATE) 10 (Given - Provider: Nabila E Eugenie, R.N.) 0855 (Given - Provider: Suleman Rivas [...] Provider: Ciara Morgan R.N.)1251 (Given - Provider: Ciara Morgan R.N.)1335 (Given - Provider: Ciara Morgan, R.NSuma) 50 mcg, intravenous, Every 15 min PRN, s evere pain or score 7-10 of 10, Starting on 02/01/22 at 1114, For 3 doses fentaNYL injection 50 mcg (SUBLIMAZE) (CANCELED) 1553 (Given - Provider: Ciara Morgan RSumaNSuma) 50 mcg, intravenous, Every 15 min PRN, [...] as of this encounter Care Teams Freight Shipping Agent Relationship Specialty Start Date End Date Ana Red P.A.-C. PCP - General Internal Medicine 12/01/[address] [place] [address] DAI PANIAGUA [phone] [facility] [place] [facility] 08/25/21 Ervin Schroeder MD Referring Provider Family Medicine 03/24/[address] [place] [address] ADI Paniagua [address] (work) documented as of this encounter
--- OUTSIDE RECORDS SUMMARY | 2022-02-16 12:16 | XMS_ITS | Encounter Summary ---
:1990 Author Organization [facility] Address [address] [place] [address] Care Team Providers Name Role Phone Ana Red PSumaASuma-C. Primary Care Provider [phone] Encounter Details Date Type Department Care Team Description 02/02/2022 Orders Only Department of [facility] Ana Red , Internal Medicine in [place] 300 [facility] 300 [facility] [place] [phone] (Wo rk) Social History Tobacco [...] you attend restoration or Patient refused 2021 yazdanism services? 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 [address] [place] [phone] Virtual Visit Transplant Matthew Jerome 2 Y, JoshuaB.B.Kath, Lilian [address] [place] [phone] Office Visit Gastroenterology and [facility] 2 Hepatology Tyrell Rodriguez M.D. [address] [place] [address] [phone] Appointment Radiology [facility] Matthew 2 Tyrell Rodriguez M.D. [address] [place] [address] [phone] Hospital Gastroenterology and [facility] Cirrhos is Alcoholic (HCC) 2 Encounter Hepatology Tyrell Rodriguez M.D. [address] [place] [address] [phone] Anesthesia Event Gastroenterology and Rl, 2 Hepatology Ervin Burgos M.D. [address] [place] [address] [phone] Surgery Gastroenterology and [facility] ESOPHAG OGASTRODUODENOSCOPY 2 Hepatology Tyrell Rodriguez M.D. [address] [place] [phone] Scheduled Procedures Name Priority Associated Diagnoses Date/Time ESOPHAGOGASTRODUODENOSCOPY Cirrhosis Alc oholic (HCC) 03/20/2022 8:45 AM MAILROOM COORDINATOR Hypertension Portal (HCC) documented as of this encounter Visit Diagnoses Not on filedocumented in this encounter Additional Health Concerns Assessment Noted Time PHQ-9 Depression Total Score: 10 10/06/2021 5:00 PM CD T documented as of this encounter Care Teams Energy Engineer Relationship Specialty Start Date End Date Ana Red P.A.-C. PCP - General Internal Medicine 12/01/[address] [place] [address] ADI Chua [phone] [facility] 08/25/21 Ervin Schroeder MD Referring Provider Family Medicine 03/24/[address] [place] [address] documented as of this encounter
--- OUTSIDE RECORDS SUMMARY | 2022-02-16 12:16 | XMS_ITS | Encounter Summary ---
:[address] [facility] Address [address] [place] [address] Care Team Providers Name Role Phone Ana Red P.A.-C. Primary Care Provider [phone] Encounter Details Date Type Department Care Team Description 02/09/2022 Clinical Communication Department of Debra Red [facility] Farida Perez Medicine in [address] [address] [place], [place] [phone] (Work) [phone] Social History Tobacco Use Types Packs/Day Years [...] you attend jewish or Patient refused 2021 baptist services? Do [...] the highest technical, or vocational p [facility] degree you have received? 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 Please call patient back. [phone] Telephone Encounter - Ankita Peña - 02/09/2022 [...] Needed: Please send something to [facility] in [place] for her please Name of Medication (if relevant): what ever you can offer for her nerve pain Please send all scheduling replies to scheduling pool. documented in this encounter Plan of Treatment Upcoming Encounters Date Type Specialty Care Team Description Telemedicine Transplant 2 Appointment Radiology Matthew Jerome 2 Y, Callie Santillan. [address] [place] [phone] Appointment Gastroenterology and Adrianne, 2 Hepatology Yue Burciaga M.D. [address] [place] [phone] Virtual Visit Transplant Matthew Jerome 2 Tyrell Rodriguez M.D. [address] [place] [phone] Office Visit Gastroenterology and Luischantell Matthew 2 Hepatology Tyrell Rodriguez M.D. [address] [place] [phone] Appointment Radiology Matthew Jerome 2 YTyrell M.D. [address] [place] [phone] [facility] Gastroenterology and Queenie Matthew Cirrhos is Alcoholic (HCC) 2 Encounter Hepatology Tyrell Rodriguez M.D. [address] [place] [phone] Anesthesia Event Gastroenterology and Rl, 2 Hepatology Ervin Burgos M.D. [address] [place] [phone] Surgery Gastroenterology and LuisNew abdular ESOPHAG OGASTRODUODENOSCOPY 2 Hepatology Tyrell Rodriguez, Lilian [address] [place] [phone] Scheduled Procedures Name Priority Associated Diagnoses Date/Time ESOPHAGOGASTRODUODENOSCOPY Cirrhosis Alc oholic (HCC) 03/20/2022 8:45 AM SPINDLE PLUMBER Hypertension Portal (HCC) documented as of this encounter Visit Diagnoses Not on filedocumented in this encounter Additional Health Concerns Assessment Noted Time PHQ-9 Depression Total Score: 10 10/06/2021 5:00 PM CD T documented as of this encounter Care Teams Cosmetic Sales Advisor Relationship Specialty Start Date End Date Ana Red P.A.-C. PCP - General Internal Medicine 12/01/[address] [place] [phone] [facility] [place] lab 08/25/21 Ervin Schroeder MD Referring Provider Family Medicine 03/24/[address] [place] [address] documented as of this encounter
--- OUTSIDE RECORDS SUMMARY | 2022-02-16 12:16 | XMS_ITS | Encounter Summary ---
:1990 Author Organization [facility] Address [address] [place] [address] Care Team Providers Name Role Phone Ana Red P.A.-C. Primary Care Provider [phone] Reason for Referral Outpatient (Routine) - Authorized Specialty Diagnoses / Procedures Referred By Contact Refer red To Contact Diagnoses Alcoholic Cirrhosis Of Liver With Ascites (HCC) Sara Gracia M.D. [address] [place] [phone] Referral ID Status Reason Start Date Expiration Date Visits V isits Requested Authorized [id number] Authorized 02/06/2022 02/06/2023 1 1 Outpatient (Routine) - Authorized Specialty Diagnoses / Procedures Referred By Contact Refer red To Contact Diagnoses Chronic Pain Syndrome Hypertension Portal (HCC) Hepatic Failure Unspecified Without Coma (HCC) Alcoholic Cirrhosis Of Liver With Ascites (HCC) Sara Gracia M.D. [address] [place] [address] Referral ID Status Reason Start Date Expiration Date Visits V isits Requested Authorized [id number] Authorized 02/06/2022 02/06/2023 1 1 Outpatient (Routine) - Closed Specialty Diagnoses / Procedures Referred By Contact Refer red To Contact Diagnoses Ascites Chronic Matthew Jerome M.B.B.S., [facility] Procedures US Paracentesis with Imaging Guidance M.Jeri [address] [place] [phone] Referral ID Status Reason Start Date Expiration Date Visits Requ ested Visits Authorized [id number] Closed 11/19/2021 11/19/2022 1 1 Reason for Visit Auth/Cert Specialty Diagnoses / Procedures Referred By Contact Refer red To Contact Diagnoses Ascites Chronic Procedures US PARACENTESIS WITH IMAGING GUIDANCE Hosp OP Referral ID Status Reason Start Date Expiration Date Visits Requ ested Visits Authorized [id number] 1 1 Encounter Details Date Type Department Care Team Description 02/05/2022 Hospital Encounter Department of Matthew Jerome, Chroni c Pain Syndrome (Primary Dx); Radiology, Joshua Reyes Ascites Chronic; Building, in [address] [facility] Hypertension Portal (HCC); [place], [place] Hepatic Failure Unspecified Without Coma (HCC); [address] [facility] [phone] Alcoholic Cirrhosis Of Liver With Ascite s (HCC) [place], [place] [phone] (Work) [phone] Social History Tobacco Use Types Packs/Day Years [...] you attend adventism or Patient refused 2021 church services? 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 [address] [place] [phone] Appointment Gastroenterology and Adrianne, 2 Hepatology Yue Burciaga M.D. [address] [place] [phone] Virtual Visit Transplant LuischantellMatthew 2 Tyrell Rodriguez M.D. [address] [place] [phone] Office Visit Gastroenterology and Queenie Matthew 2 Hepatology Tyrell Rodriguez M.D. [address] [place] [phone] Appointment Radiology Queenie Matthew 2 YTyrell M.D. [address] [place] [phone] Hospital Gastroenterology and Sdchantell Matthew Cirrhos is Alcoholic (HCC) 2 Encounter Hepatology Tyrell Rodriguez M.D. [address] [place] [phone] Anesthesia Event Gastroenterology and Rl, 2 Hepatology Ervin Burgos M.D. [address] [place] [phone] Surgery Gastroenterology and [facility] ESOPHAG OGASTRODUODENOSCOPY 2 Hepatology Tyrell Rodriguez M.D. [address] [place] [phone] Scheduled Procedures Name Priority Associated Diagnoses Date/Time ESOPHAGOGASTRODUODENOSCOPY Cirrhosis Alc oholic (HCC) 03/20/2022 8:45 AM RIG SUPERINTENDENT Hypertension Portal (HCC) Scheduled Referrals Name Type Priority Associated Diagnoses Order S chedule [facility] Outpatient Referral Routine Chronic Pain Syndrome Ordered: Health referral Hypertension Portal 02/06 (HCC) Hepatic Failure Unspecified Without Coma (HCC) Alcoholic Cirrhosis Of Liver With Ascites (HCC) [facility] Outpatient Referral Routine Alcoholic Cirrhosis Ordered: [...] PROCEDURES Gram Stain (02/05/2022 3:17 PM CDT) PathHemoShear Method Time Signature Gram Stain No organisms [...] Address City/State/ZIP Code Phon e Number [facility] - [address] [place] [phone] [facility] [place] [address] [facility] [address] Cell Count and Differential, Body Fluid (02/05/2022 3:17 PM CDT) [facility] Pages Method Time Signature Fluid Type Peritoneal- 02/05/2022 [...] Address City/State/ZIP Code Phon e Number [facility] - [address] [place], [place] [address] [place] [address] [facility] [address] documented in this [...] CDT 4 mL Code/trauma/sedation medication, Starting on Lu Zmarina 02/05/22 at 1529 documented in this encounter [...] of this encounter Care Teams Welder Setter Electron Beam Machine Relationship Specialty Start Date End Date Ana Red P.A.-C. PCP - General Internal Medicine 12/01/[address] [place] [phone] [facility] [place] lab 08/25/21 Ervin Schroeder MD Referring Provider Family Medicine 03/24/[address] [place] [phone] documented as of this encounter
--- OUTSIDE RECORDS SUMMARY | 2022-02-16 12:16 | XMS_ITS | Encounter Summary ---
:1990 Author Organization [facility] Address [address] [place] [address] Care Team Providers Name Role Phone Ana Red P.A.-C. Primary Care Provider [phone] Encounter Details Date Type Department Care Team Description 01/30/2022 Clinical Communication RST Sara Gomez [address] [email or web address] Lilian Mendez [place], [place] [address] [place] [phone] [place] [phone] Social History Tobacco Use Types Packs/Day Years [...] you attend adventist or Patient refused 2021 taoist services? 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 - 01/30/2022 9:10 PM CDT Patient called [facility] Medicine 3 team overnight for severe back pain and abdominal pain. She was discharged on 01/29. This pain is usually controlled by Flexeril, which is normally prescribed by her PCP, but the patient was not able to pickle sorter this medication at her local pharmacy of [...] Radiology Matthew Jerome 2 YTyrell M.D. [address] [place] [phone] Appointment Gastroenterology demian Silver 2 Hepatology Yue Burciaga M.D. [address] [place] [phone] Virtual Visit Transplant Matthew Jerome 2 YTyrell M.D. [address] [place] [phone] Office Visit Gastroenterology and Matthew Jerome 2 Hepatology Tyrell Rodriguez M.D. [address] [place] [phone] Appointment Radiology Matthew Jerome 2 YTyrell M.D. [address] [place] [phone] Hospital Gastroenterology and Queenie Matthew Cirrhos is Alcoholic (HCC) 2 Encounter Hepatology Tyrell Rodriguez M.D. [address] [place] [phone] Anesthesia Event Gastroenterology and Olinda Shine Hepatology Ervin Burgos M.D. [address] [place] [phone] Surgery Gastroenterology and Matthew Jerome ESOPHAG OGASTRODUODENOSCOPY 2 Hepatology Y, M.Lilian Hudson [address] [place] [phone] Scheduled Procedures Name Priority Associated Diagnoses Date/Time ESOPHAGOGASTRODUODENOSCOPY Cirrhosis Alc oholic (HCC) 03/20/2022 8:45 AM ROCK DUSTER Hypertension Portal (HCC) documented as of this encounter Visit Diagnoses Not on filedocumented in this encounter Additional Health Concerns Assessment Noted Time PHQ-9 Depression Total Score: 10 10/06/2021 5:00 PM CD T documented as of this encounter Care Teams Title Specialist Relationship Specialty Start Date End Date Ana Red P.A.-C. PCP - General Internal Medicine 12/01/[address] [place] [phone] [facility]- [place] lab 08/25/21 Ervin Schroeder MD Referring Provider Family Medicine 03/24/[address] [place] [address] documented as of this encounter
--- OUTSIDE RECORDS SUMMARY | 2022-02-16 12:16 | XMS_ITS | Encounter Summary ---
:1990 Author Organization [facility] Address [address] [place] [address] Care Team Providers Name Role Phone Ana Red P.A.-C. Primary Care Provider [phone] Encounter Details Date Type Department Care Team Description 02/02/2022 Clinical Communication Department of Debra Red [facility] Farida Perez Medicine in [address] [address] [place], [place] [phone] (Work) [phone] Social History Tobacco Use Types Packs/Day Years [...] you attend presybeterian or Patient refused 2021 presybeterian services? Do [...] or the highest technical, or vocational p [employer] degree you have received? 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 [phone] Telephone Encounter - Paty [place] - 02/02/2022 10:39 AM CDT Reason for Communication: Patients calling in and stated that she is in [facility] and is needing the provider to fill [...] Appointment Radiology Matthew Jerome 2 YElizabeth.B.B.SSuma, Lilian [address] [place] [phone] Appointment Gastroenterology and Adrianne, 2 Hepatology Yue Burciaga M.D. [address] [place] [phone] Virtual Visit Transplant LuischantellMatthew 2 Y M.B.B.SLilian Moise [address] [place] [phone] Office Visit Gastroenterology and Queenie Matthew 2 Hepatology Joshua RodriguezBSumaB.Lilian [place] [address] [place] [address] [phone] Appointment Radiology Matthew Jerome 2 YTyrell M.D. [address] [place] [phone] Hospital Gastroenterology and [facility] Cirrhos is Alcoholic (HCC) 2 Encounter Hepatology Tyrell Rodriguez M.D. [address] [place] [phone] Anesthesia Event Gastroenterology and [facility], 2 Hepatology Ervin Burgos M.D. [address] [place] [phone] Surgery Gastroenterology and [facility] ESOPHAG OGASTRODUODENOSCOPY 2 Hepatology Tyrell Rodriguez M.D. [address] [place] [phone] Scheduled Procedures Name Priority Associated Diagnoses Date/Time ESOPHAGOGASTRODUODENOSCOPY Cirrhosis Alc oholic (HCC) 03/20/2022 8:45 AM PHERESIS SPECIALIST Hypertension Portal (HCC) documented as of this encounter Visit Diagnoses Not on filedocumented in this encounter Additional Health Concerns Assessment Noted Time PHQ-9 Depression Total Score: 10 10/06/2021 5:00 PM CD T documented as of this encounter Care Teams Assistant Professor Of Surgery Relationship Specialty Start Date End Date Ana Red P.A.-C. PCP - General Internal Medicine 12/01/[address] [place] [address] [place] [phone] [facility]- [place] lab 08/25/21 Ervin Schroeder MD Referring Provider Family Medicine 03/24/[address] [place] [address] [place] [address] documented as of this encounter
--- OUTSIDE RECORDS SUMMARY | 2022-02-16 12:16 | XMS_ITS | Encounter Summary ---
:1990 Author Organization [facility] Address [address] [place] [address] Care Team Providers Name Role Phone Ana Red P.A.-C. Primary Care Provider Reason for Visit Reason Comments Post Hospital Follow-up [facility] Encounter Details Date Type Department Care Team Description 02/04/[address] [facility] Internal Myrtle Govea Follow-up ([facility] in 2199) [address] [address] [place] [phone] (Work) [phone] Social History Tobacco Use Types Packs/Day Years [...] you attend latter-day or Patient refused 2021 hindu services? Do [...] or the highest technical, or vocational p [facility] degree you have received? 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 Patient was dismissed from the [facility] on 02/03/22 at 1808. [facility] Exclusion Criteria: Liver Transplant recipient (actively following with transplant team pre-transplant) documented in this encounter Plan of Treatment Upcoming Encounters Date Type Specialty Care Team Description Telemedicine Transplant 2 Appointment Radiology Matthew Jerome 2 YTyrell M.D. [address] [place] [address] [phone] Appointment Gastroenterology and Adrianne, 2 Hepatology Yue Burciaga M.D. [address] [place] [phone] Virtual Visit Transplant Matthew Jerome 2 YTyrell M.D. [address] [place] [phone] Office Visit Gastroenterology and [facility] 2 Hepatology Tyrell Rodriguez M.D. [address] [place] [phone] Appointment Radiology [facility] Matthew 2 YTyrell M.D. [address] [place] [phone] Hospital Gastroenterology and [facility] Cirrhos is Alcoholic (HCC) 2 Encounter Hepatology Tyrell Rodriguez M.D. [address] [place] [phone] Anesthesia Event Gastroenterology and Rl, 2 Hepatology Ervin Burgos M.D. [address] [place] [phone] Surgery Gastroenterology and [facility] ESOPHAG OGASTRODUODENOSCOPY 2 Hepatology Tyrell Rodriguez M.D. [address] [place] [phone] Scheduled Procedures Name Priority Associated Diagnoses Date/Time ESOPHAGOGASTRODUODENOSCOPY Cirrhosis Alc oholic (HCC) 03/20/2022 8:45 AM STUDENT AFFAIRS VICE PRESIDENT Hypertension Portal (HCC) documented as of this encounter Visit Diagnoses Not on filedocumented in this encounter Additional Health Concerns Assessment Noted Time PHQ-9 Depression Total Score: 10 10/06/2021 5:00 PM CD T documented as of this encounter Care Teams Agricultural Engineering Technicians Relationship Specialty Start Date End Date Ana Red P.A.-C. PCP - General Internal Medicine 12/01/[address] [place] [address] Santiluzma HERMOSILLOADI WRIGHT [phone] [facility] 08/25/21 Ervin Schroeder MD Referring Provider Family Medicine 03/24/[address] [place] [address] documented as of this encounter
--- OUTSIDE RECORDS SUMMARY | 2022-02-16 12:16 | XMS_ITS | Encounter Summary ---
:1990 Author Organization [facility] Address [address] [place] [address] Care Team Providers Name Role Phone Ana Red P.A.-C. Primary Care Provider Reason for Visit Transplant (Routine) - Authorized Specialty Diagnoses / Procedures Referred By Contact Refer red To Contact Transplant Surgery / Matthew Jerome [place] [facility] eg[facility] Transplant M.BSumaBSumaSLilian Moise [address] [place] [phone] Referral ID Status Reason Start Date Expiration Date Visits V isits Requested Authorized [id number] Authorized 10/27/2021 10/27/2022 1 1 Encounter Details Date Type Department Care Team Description 02/10/2022 Virtual Visit Amy Valenzuela M.B.B.SSuma, MJules [address] [place] [address] Alcoholic Cirrhosis [facility] for Rain Reyes R.N. 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 - 02/10/2022 2:00 PM CDT Unable to speak with patient as she as in the local ER. Appointment will be rescheduled. documented in this encounter Plan of Treatment Upcoming Encounters Date Type Specialty Care Team Description Telemedicine Transplant 2 Appointment Radiology Matthew Jerome 2 Tyrell Rodriguez M.D. [address] [place] [phone] Appointment Gastroenterology and Adrianne, 2 Hepatology Yue Burciaga M.D. [address] [place] [phone] Virtual Visit Transplant Matthew Jerome 2 Tyrell Rodriguez, Lilian [address] [place] [phone] Office Visit Gastroenterology and Matthew Jerome 2 Hepatology Tyrell Rodriguez M.D. [address] [place] [phone] Appointment Radiology Matthew Jerome 2 Tyrell Rodriguez M.D. [address] [place] [phone] Hospital Gastroenterology and Matthew Jerome Cirrhos is Alcoholic (HCC) 2 Encounter Hepatology Tyrell Rodriguez M.D. [address] [place] [phone] Anesthesia Event Gastroenterology and Rl, 2 Hepatology Ervin Burgos M.D. [address] [place] [phone] Surgery Gastroenterology and Mousa, Matthew ESOPHAG OGASTRODUODENOSCOPY 2 Hepatology Tyrell Rodriguez, Lilian [address] [place] [phone] Scheduled Procedures Name Priority Associated Diagnoses Date/Time ESOPHAGOGASTRODUODENOSCOPY Cirrhosis Alc oholic (HCC) 03/20/2022 8:45 AM SOLAR ENERGY CONSULTANT AND DESIGNER Hypertension Portal (HCC) documented as of this encounter Visit Diagnoses Diagnosis Cirrhosis Alcoholic (HCC) Alcoholic Cirrhosis Of Liver With Ascite s (HCC) [K70.31 (ICD-10-CM)] - Primary Cirrhosis Alcoholic (HCC) Hypertension Portal (HCC) documented in this encounter Additional Health Concerns Assessment Noted Time PHQ-9 Depression Total Score: 10 10/06/2021 5:00 PM CD T documented as of this encounter Care Teams Employment Law Specialist Relationship Specialty Start Date End Date Ana Red P.A.-C. PCP - General Internal Medicine 12/01/[address] [place] [address] ADI PANIAGUA [phone] [facility]- [place] lab 08/25/21 Ervin Schroeder MD Referring Provider Family Medicine 03/24/[address] [place], [place] [address] ADI Paniagua [address] documented as of this encounter
--- OUTSIDE RECORDS SUMMARY | 2022-02-16 12:17 | XMS_ITS | Encounter Summary ---
:1990 Author Organization [facility] Address [address] [place] [address] Care Team Providers Name Role Phone Ana Red P.A.-C. Primary Care Provider [phone] Encounter Details Date Type Department Care Team Description 01/30/2022 Orders Only RST HIM Sara Gracia R, [address] [place] [phone] [place] [phone] (Wo rk) Social History Tobacco Use Types [...] you attend mu-ism or Patient refused 2021 mosque services? 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 [address] [place] [address] Virtual Visit Transplant Matthew Jerome 2 Y, VikBGraeme, Lilian [address] [place] [phone] Office Visit Gastroenterology and [facility] 2 Hepatology Tyrell Rodriguez M.D. [address] [place] [phone] Appointment Radiology Alchantell Matthew 2 YTyrell M.D. [address] [place] [phone] Hospital Gastroenterology and [facility] Cirrhos is Alcoholic (HCC) 2 Encounter Hepatology Tyrell Rodriguez M.D. [address] [place] [phone] Anesthesia Event Gastroenterology and Rl, 2 Hepatology Ervin Burgos M.D. [address] [place] [phone] Surgery Gastroenterology and [facility] ESOPHAG OGASTRODUODENOSCOPY 2 Hepatology Tyrell Rodriguez M.D. [address] [place] [phone] Scheduled Procedures Name Priority Associated Diagnoses Date/Time ESOPHAGOGASTRODUODENOSCOPY Cirrhosis Alc oholic (HCC) 03/20/2022 8:45 AM ATTENDANT ARCADE Hypertension Portal (HCC) documented as of this encounter Visit Diagnoses Not on filedocumented in this encounter Additional Health Concerns Assessment Noted Time PHQ-9 Depression Total Score: 10 10/06/2021 5:00 PM CD T documented as of this encounter Care Teams Automatic Mold Sander Relationship Specialty Start Date End Date Ana Red P.A.-C. PCP - General Internal Medicine 12/01/[address] [place] [address] ADI Chua [phone] [facility] 08/25/21 Ervin Schroeder MD Referring Provider Family Medicine 03/24/[address] [place] [address] documented as of this encounter
--- OUTSIDE RECORDS SUMMARY | 2022-02-16 12:17 | XMS_ITS | Encounter Summary ---
:1990 Author Organization [facility] Address [address] [place] [address] Care Team Providers Name Role Phone Ana Red P.A.-C. Primary Care Provider [phone] Reason for Visit Reason Comments Phone Contact Encounter Details Date Type Department Care Team Description 01/29/2022 Clinical Communication Adry Orourke Phone Contact Center for [address] [place] [address] Transplantation [place] [phone] [place], [place] [phone] [place] [address] (Work) [place] [address] Social History Tobacco Use Types Packs/Day [...] you attend zoroastrian or Patient refused 2021 spiritism services? 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 Call log added. Telephone Encounter - Jo Ann Blakely - 01/29/2022 11:57 AM CDT Alisha from [facility] reaching out to the transplant team to assist pt in scheduling appts. Pt is also wanting to transfer her care from [place] to [facility]. Please reach out to the pt at [phone]. Thanks, documented in this encounter Plan of Treatment Upcoming Encounters Date Type Specialty Care Team Description Telemedicine Transplant 2 Appointment Radiology Matthew Jerome 2 Tyrell Rodriguez M.D. [address] [place] [phone] Appointment Gastroenterology demian Silver 2 Hepatology Yue Burciaga M.D. [address] [place] [phone] Virtual Visit Transplant Matthew Jerome 2 Tyrell Rodriguez M.D. [address] [place] [phone] Office Visit Gastroenterology and Matthew Jerome 2 Hepatology Tyrell Rodriguez M.D. [address] [place] [phone] Appointment Radiology Matthew Jerome 2 YJoshuaBSumaBLilian Bedolla [address] [place] [phone] Hospital Gastroenterology and Queenie Matthew Cirrhos is Alcoholic (HCC) 2 Encounter Hepatology Vik RodriguezBLilian Bedolla [address] [place] [phone] Anesthesia Event Gastroenterology and Rl, 2 Hepatology Ervin Burgos M.D. [address] [place] [phone] Surgery Gastroenterology and Matthew Jerome ESOPHAG OGASTRODUODENOSCOPY 2 Hepatology Tyrell Rodriguez M.D. [address] [place] [phone] Scheduled Procedures Name Priority Associated Diagnoses Date/Time ESOPHAGOGASTRODUODENOSCOPY Cirrhosis Alc oholic (HCC) 03/20/2022 8:45 AM RETAIL TIRE SALES MANAGER Hypertension Portal (HCC) documented as of this encounter Visit Diagnoses Not on filedocumented in this encounter Additional Health Concerns Assessment Noted Time PHQ-9 Depression Total Score: 10 10/06/2021 5:00 PM CD T documented as of this encounter Care Teams Pollution Control Chemist Relationship Specialty Start Date End Date Ana Red P.A.-C. PCP - General Internal Medicine 12/01/[address] [place] [phone] [facility]- [place] lab 08/25/21 Ervin Schroeder MD Referring Provider Family Medicine 03/24/[address] [place] [address] documented as of this encounter
--- OUTSIDE RECORDS SUMMARY | 2022-02-16 12:17 | XMS_ITS | Encounter Summary ---
:[address] [facility] Address [address] [place] [address] Care Team Providers Name Role Phone Ana Red P.A.-C. Primary Care Provider [phone] Reason for Visit Reason Comments Post Hospital Follow-up Encounter Details Date Type Department Care Team Description 01/30/2022 Clinical Communication Department of [facility] Family Medicine, J, R.N. Follow-up [facility], in [facility] ([address] [place] [address] Social History Tobacco Use Types Packs/Day [...] you attend jain or Patient refused 2021 restorationism services? Do you belong to any clubs or No 02/10/2022 organizations such as jain groups, unions, fraSynference or athletic groups, or school groups? 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 [address] [place] [address] Appointment Gastroenterology demian Silver, 2 Hepatology Yue Burciaga M.D. [address] [place] [address] Virtual Visit Transplant Matthew Jerome 2 Tyrell Rodriguez M.D. [address] [place] [phone] Office Visit Gastroenterology and Matthew Jerome 2 Hepatology Tyrell Rodriguez M.D. [address] [place] [phone] Appointment Radiology LuisMatthew abdul 2 Tyrell Rodriguez M.D. [address] [place] [phone] Hospital Gastroenterology and Matthew Jerome Cirrhos is Alcoholic (HCC) 2 Encounter Hepatology Tyrell Rodriguez M.D. [address] [place] [phone] Anesthesia Event Gastroenterology and Rl, 2 Hepatology Ervin Burgos M.D. [address] [place] [phone] Surgery Gastroenterology and Matthew Jerome ESOPHAG OGASTRODUODENOSCOPY 2 Hepatology Tyrell Rodriguez M.D. 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 PCP - General Internal Medicine 12/01/[address] [place] [phone] [facility]- [facility] 08/25/21 Ervin Schroeder MD Referring Provider Family Medicine 03/24/[address] [place] [address] documented as of this encounter
--- OUTSIDE RECORDS SUMMARY | 2022-02-16 12:17 | XMS_ITS | Encounter Summary ---
:1990 Author Organization [facility] Address [address] [place] [address] Care Team Providers Name Role Phone Ana Red P.A.-C. Primary Care Provider [phone] Encounter Details Date Type Department Care Team Description 01/29/2022 Orders Only Pharmacy Prior Auth Genaro Biggs [phone] Social History Tobacco Use Types Packs/Day Years [...] attend latter day or Patient refused 2021 druze services? 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 [address] [place] [phone] Virtual Visit Transplant Matthew Jerome 2, M.B.B.S., M.D. [address] [place] [phone] Office Visit Gastroenterology and Matthew Jerome 2 Hepatology Tyrell Rodriguez M.D. [address] [place] [phone] Appointment Radiology Queenie Matthew 2 YTyrell M.D. [address] [place] [phone] Hospital Gastroenterology and [facility] Cirrhos is Alcoholic (HCC) 2 Encounter Hepatology Tyrell Rodriguez M.D. [address] [place] [phone] Anesthesia Event Gastroenterology and [facility], 2 Hepatology Ervin Burgos M.D. [address] [place] [phone] Surgery Gastroenterology and [facility] ESOPHAG OGASTRODUODENOSCOPY 2 Hepatology Tyrell Rodriguez M.D. [address] [place] [phone] Scheduled Procedures Name Priority Associated Diagnoses Date/Time ESOPHAGOGASTRODUODENOSCOPY Cirrhosis Alc oholic (HCC) 03/20/2022 8:45 AM FLORAL ARTIST Hypertension Portal (HCC) documented as of this encounter Visit Diagnoses Not on filedocumented in this encounter Additional Health Concerns Assessment Noted Time PHQ-9 Depression Total Score: 10 10/06/2021 5:00 PM CD T documented as of this encounter Care Teams Brewer Helper Relationship Specialty Start Date End Date Ana Red P.A.-C. PCP - General Internal Medicine 12/01/[address] [place] [address] ADI PANIAGUA [phone] [facility]- [place] lab 08/25/21 Ervin Schroeder MD Referring Provider Family Medicine 03/24/[address] [place] [address] documented as of this encounter
--- OUTSIDE RECORDS SUMMARY | 2022-02-16 12:17 | XMS_ITS | Encounter Summary ---
:1990 Author Organization [facility] Address [address] [place] [address] Care Team Providers Name Role Phone Ana Red P.A.-C. Primary Care Provider [phone] Encounter Details Date Type Department Care Team Description 01/30/2022 Clinical Communication Department of Debra Red [facility] Farida Perez Medicine in [address] [phone] [place], [place] [phone] (Work) [phone] Social History Tobacco Use Types Packs/Day Years [...] you attend gnosticist or Patient refused 2021 christian services? 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 [address] [place] [phone] Virtual Visit Transplant Matthew Jerome 2 Y M.B.B.Lilian [place] [address] [place] [phone] Office Visit Gastroenterology and Matthew Jerome 2 Hepatology YJoshuaB.B.SLilian Moise [address] [place] [phone] Appointment Radiology Matthew Jerome 2 Y M.B.B.SLilian Moise [address] [place] [phone] Hospital Gastroenterology and [facility] [place] [place] Cirrhos is Alcoholic (HCC) 2 Encounter Hepatology Tyrell Rodriguez, Lilian [address] [place] [phone] Anesthesia Event Gastroenterology and Rl, 2 Hepatology Ervin Burgos M.D. [address] [place] [phone] Surgery Gastroenterology and [facility] [place] ESOPHAG OGASTRODUODENOSCOPY 2 Hepatology Tyrell Rodriguez, Lilian [address] [place] [phone] Scheduled Procedures Name Priority Associated Diagnoses Date/Time ESOPHAGOGASTRODUODENOSCOPY Cirrhosis Alc oholic (HCC) 03/20/2022 8:45 AM LEAD ELECTRICAL ENGINEER Hypertension Portal (HCC) documented as of this encounter Visit Diagnoses Not on filedocumented in this encounter Additional Health Concerns Assessment Noted Time PHQ-9 Depression Total Score: 10 10/06/2021 5:00 PM CD T documented as of this encounter Care Teams Government Affairs Fellow Relationship Specialty Start Date End Date Ana Red P.A.-C. PCP - General Internal Medicine 12/01/[address] [place] [address] [place] [phone] [facility]- [place] lab 08/25/21 Ervin Schroeder MD Referring Provider Family Medicine 03/24/[address] [place] [address] [place] [address] documented as of this encounter
--- OUTSIDE RECORDS SUMMARY | 2022-02-16 12:17 | XMS_ITS | Encounter Summary ---
:1990 Author Organization [facility] Address [address] [place] [address] Care Team Providers Name Role Phone Ana Red P.A.-C. Primary Care Provider [phone] Encounter Details Date Type Department Care Team Description 01/30/2022 Orders Only Division [facility] Harinder Mccormick M.D. Internal Medicine, [place], [address] [place] [address] in [facility] [phone] [place] [address] [place], [place] [address] [phone] Social History Tobacco Use Types Packs/Day Years [...] you attend congregation or Patient refused 2021 baptism services? 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 [address] [place] [phone] Virtual Visit Transplant Matthew Jerome 2 YKishore.B.Kath, Lilian [address] [place] [address] [phone] Office Visit Gastroenterology and Sdchantell Matthew 2 Hepatology Tyrell Rodriguez M.D. [address] [place] [phone] Appointment Radiology Sdchantell Matthew 2 YTyrell M.D. [address] [place] [phone] Hospital Gastroenterology and [facility] Cirrhos is Alcoholic (HCC) 2 Encounter Hepatology Tyrell Rodriguez M.D. [address] [place] [phone] Anesthesia Event Gastroenterology and Rl, 2 Hepatology Ervin Burgos M.D. [address] [place] [phone] Surgery Gastroenterology and [facility] ESOPHAG OGASTRODUODENOSCOPY 2 Hepatology Tyrell Rodriguez M.D. [address] [place] [address] [phone] Scheduled Procedures Name Priority Associated Diagnoses Date/Time ESOPHAGOGASTRODUODENOSCOPY Cirrhosis Alc oholic (HCC) 03/20/2022 8:45 AM DETECTOR CAR OPERATOR Hypertension Portal (HCC) documented as of this encounter Visit Diagnoses Not on filedocumented in this encounter Additional Health Concerns Assessment Noted Time PHQ-9 Depression Total Score: 10 10/06/2021 5:00 PM CD T documented as of this encounter Care Teams Leather Belt Loop Cutter Relationship Specialty Start Date End Date Ana Red P.A.-C. PCP - General Internal Medicine 12/01/[address] [place] [address] [place] [address] [phone] [facility]- [facility] 08/25/21 Ervin Schroeder MD Referring Provider Family Medicine 03/24/[address] [place] [address] documented as of this encounter
--- OUTSIDE RECORDS SUMMARY | 2022-02-16 12:17 | XMS_ITS | Encounter Summary ---
:1990 Author Organization [facility] Address [address] [place] [address] Care Team Providers Name Role Phone Ana Red P.A.-C. Primary Care Provider [phone] Reason for Visit Reason Comments Post Hospital Follow-up Encounter Details Date Type Department Care Team Description 01/30/2022 Clinical Department of Parris Adrian [facility] [place] human resource ssd Communication [facility] Internal A, R.N. Follow-up Medicine in [address] [place] [phone] [place] [address] [place], [place] (Work) [phone] Social History Tobacco Use [...] you attend pentecostalism or Patient refused 2021 sabianism services? Do [...] or the highest technical, or vocational p HelloTelram degree you have received? 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 [address] [place] [phone] Virtual Visit Transplant LuisMatthew abdul 2 Tyrell Rodriguez M.D. [address] [place] [phone] Office Visit Gastroenterology and Matthew Jerome 2 Hepatology Tyrell Rodriguez M.D. [address] [place] [phone] Appointment Radiology Queenie Matthew 2 Tyrell Rodriguez M.D. [address] [place] [phone] Hospital Gastroenterology and Matthew Jerome Cirrhos is Alcoholic (HCC) 2 Encounter Hepatology Tyrell Rodriguez M.D. [address] [place] [phone] Anesthesia Event Gastroenterology and Rl, 2 Hepatology Ervin Burgos M.D. [address] [place] [phone] Surgery Gastroenterology and Matthew Jerome ESOPHAG OGASTRODUODENOSCOPY 2 Hepatology Tyrell Rodriguez M.D. [address] [place] [phone] Scheduled Procedures Name Priority Associated Diagnoses Date/Time ESOPHAGOGASTRODUODENOSCOPY Cirrhosis Alc oholic (HCC) 03/20/2022 8:45 AM PROFESSIONAL FEE CODER Hypertension Portal (HCC) documented as of this [...] Impressions Jinny Christensen - 03/05/2014 9:07 AM PROFESSIONAL FEE CODER Resulting Agency [facility] Specimen Collected: 02/28/14 14:36 Last Resulted: 03/05/14 09:07 Received From: [facility] Result Received: 11/29/18 11:58 Historical Provider LAB PAP PATHDX ORDERABLES documented in this encounter Visit Diagnoses Not on filedocumented in this encounter Additional Health Concerns Assessment Noted Time PHQ-9 Depression Total Score: 10 10/06/2021 5:00 PM CD T documented as of this encounter Care Teams Dipper Fish Relationship Specialty Start Date End Date Ana Red P.A.-C. PCP - General Internal Medicine 12/01/[address] [place] [address] [place] [phone] [facility]- [place] lab 08/25/21 Ervin Schroeder MD Referring Provider Family Medicine 03/24/[address] [place] [address] documented as of this encounter
--- OUTSIDE RECORDS SUMMARY | 2022-02-16 12:17 | XMS_ITS | Encounter Summary ---
:1990 Author Organization [facility] Address [address] [place] [address] Care Team Providers Name Role Phone Ana Red P.A.-C. Primary Care Provider [phone] Reason for Visit Reason Comments Med Refill Encounter Details Date Type Department Care Team Description 01/29/2022 Refill Department of [facility] Ana Red , Med Refill Internal Medicine in [place]. [place], [place] [facility] [address] [facility] [place] [phone] [place] [address] [phone] Social History Tobacco Use Types Packs/Day Years [...] you attend samaritan or Patient refused 2021 quaker services? 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 [address] [place] [phone] Virtual Visit Transplant Matthew Jerome 2 YKishore.B.SLilian Moise [address] [place] [phone] Office Visit Gastroenterology and [facility] 2 Hepatology Tyrell Rodriguez M.D. [address] [place] [phone] Appointment Radiology [facility] 2 Tyrell Rodriguez M.D. [address] [place] [phone] [facility] Gastroenterology and [facility] Cirrhos is Alcoholic (HCC) 2 Encounter Hepatology Tyrell Rodriguez M.D. [address] [place] [phone] Anesthesia Event Gastroenterology and [facility], 2 Hepatology Ervin Burgos M.D. [address] [place] [phone] Surgery Gastroenterology and [facility] ESOPHAG OGASTRODUODENOSCOPY 2 Hepatology Tyrell Rodriguez M.D. [address] [place] [phone] Scheduled Procedures Name Priority Associated Diagnoses Date/Time ESOPHAGOGASTRODUODENOSCOPY Cirrhosis Alc oholic (HCC) 03/20/2022 8:45 AM MIXER SLAGMAN Hypertension Portal (HCC) documented as of this encounter Visit Diagnoses Not on filedocumented in this encounter Additional Health Concerns Assessment Noted Time PHQ-9 Depression Total Score: 10 10/06/2021 5:00 PM CD T documented as of this encounter Care Teams Parts Clerk Relationship Specialty Start Date End Date Ana Red P.A.-C. PCP - General Internal Medicine 12/01/[address] [place] [address] ADI Chua [phone] [facility]- [place] lab 08/25/21 Ervin Schroeder MD Referring Provider Family Medicine 03/24/[address] [place] [address] [place] [id number] documented as of this encounter
--- OUTSIDE RECORDS SUMMARY | 2022-02-16 12:18 | XMS_ITS | Encounter Summary ---
:1990 Author Organization [facility] Address [address] [place] [address] Care Team Providers Name Role Phone Ana [...] Expiration Date Visits Requ ested Visits Authorized [id number] 1 1 Encounter Details Date Type Department Care Team Description 01/23/2022 Anesthesia Event Division of Gastroenterology Allegra Cronin in [facility] pedro Wilkes APRN, SENIOR PROGRAM PLANNER [address] [place] [address] [address] [place] [address] [place], [place] [phone] Anesthesia Record Procedure Summary Procedure Name Responsible Anesthesia Start Anesthesia Stop Time Anesthesiologist Time EGD Allegra Cronin APRN, 01/23/22 1529 2 1552 (ESOPHAGEALGASTRODU SENIOR PROGRAM PLANNER ODENOSCOPY) Events Date Time Event Comment 01/23/2022 1529 An Start Machine/Equipmen t Checked Infection Precautions Foll owed Procedure/Site Verified NPO Sta tus Verified Supine Standard ASA Mon itors Applied 1534 Turnover to Proceduralist 1539 Proc Start 1543 Proc Fin 1546 Turnover to ANE Staff 1547 an stop data 1552 An End I completed my h andoff to the receiving staff during [facility] we 1. Identified the patient 2. Ident [...] 0900 by Placement Time: 08; Perri Alan, RMarla Smalls, Catheter Size: 22 [...] you attend buddhist or Patient refused 2021 baptism services? Do [...] the highest technical, or vocational p [employer] degree you have received? 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 Risks/Benefits/Alternatives of Blood transfusion discussed with [...] Appointment Radiology Matthew Jerome 2 YTyrell M.D. [address] [place] [phone] Appointment Gastroenterology and [place]ne, 2 Hepatology Yue Burciaga M.D. [address] [place] [phone] Virtual Visit Transplant Matthew Jerome 2 Tyrell Rodriguez M.D. [address] [place] [phone] Office Visit Gastroenterology and Matthew Jerome 2 Hepatology Tyrell Rodriguez M.D. [address] [place] [phone] Appointment Radiology LuisMatthew abdul 2 Tyrell Rodriguez M.D. [address] [place] [phone] Hospital Gastroenterology and Matthew Jerome Cirrhos is Alcoholic (HCC) 2 Encounter Hepatology Tyrell Rodriguez M.D. [address] [place] [phone] Anesthesia Event Gastroenterology and [facility], 2 Hepatology Ervin Burgos M.D. [address] [place] [phone] Surgery Gastroenterology and Matthew Jerome ESOPHAG OGASTRODUODENOSCOPY 2 Hepatology Tyrell Rodriguez M.D. [address] [place] [phone] Scheduled Procedures Name Priority Associated Diagnoses Date/Time ESOPHAGOGASTRODUODENOSCOPY Cirrhosis Alc oholic (HCC) 03/20/2022 8:45 AM DIRECTOR PUBLIC SERVICE Hypertension Portal (HCC) documented as of this [...] as of this encounter Care Teams Surveyor Oil Well Directional Relationship Specialty Start Date End Date Ana Red P.A.-C. PCP - General Internal Medicine 12/01/[address] [place] [phone] [facility]- [place] lab 08/25/21 Ervin Schroeder MD Referring Provider Family Medicine 03/24/[address] [place] [phone] documented as of this encounter
--- OUTSIDE RECORDS SUMMARY | 2022-02-16 12:18 | XMS_ITS | Encounter Summary ---
:1990 Author Organization [facility] Address [address] [place] [address] Care Team Providers Name Role Phone Ana Red P.A.-C. Primary Care Provider [phone] Encounter Details Date Type Department Care Team Description 01/26/2022 Orders Only Pharmacy Prior Auth Nicole Briscoe [phone] Social History Tobacco Use Types Packs/Day Years [...] you attend advent or Patient refused 2021 amish services? 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 [address] [place] [phone] Virtual Visit Transplant Matthew Jerome 2 YTyrell M.D. [address] [place] [phone] Office Visit Gastroenterology and Matthew Jerome 2 Hepatology Tyrell Rodriguez M.D. [address] [place] [phone] Appointment Radiology Queenie Matthew 2 YTyrell M.D. 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 [address] [place] [phone] Anesthesia Event Gastroenterology and [facility], 2 Hepatology Ervin Burgos M.D. [address] [place] [phone] Surgery Gastroenterology and [facility] ESOPHAG OGASTRODUODENOSCOPY 2 Hepatology Tyrell Rodriguez M.D. 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 PCP - General Internal Medicine 12/01/[address] [place] [address] ADI PANIAGUA [phone] [facility]- [place] lab 08/25/21 Ervin Schroeder MD Referring Provider Family Medicine 03/24/[address] [place] [address] ADI Paniagua [phone] documented as of this encounter
--- OUTSIDE RECORDS SUMMARY | 2022-02-16 12:18 | XMS_ITS | Encounter Summary ---
:1990 Author Organization [facility] Address [address] [place] [address] Care Team Providers Name Role Phone Ana Red P.A.-C. Primary Care Provider [phone] Encounter Details Date Type Department Care Team Description 01/27/2022 Orders Only Pharmacy Prior Auth Evi Corbin [phone] Social History Tobacco Use Types Packs/Day Years [...] you attend restorationism or Patient refused 2021 latter-day services? 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 [address] [place] [phone] Virtual Visit Transplant Matthew Jerome 2 YTyrell M.D. [address] [place] [phone] Office Visit Gastroenterology and Matthew Jerome 2 Hepatology Tyrell Rodriguez M.D. [address] [place] [address] [phone] Appointment Radiology Queenie Matthew 2 YTyrell M.D. 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 [address] [place] [phone] Anesthesia Event Gastroenterology and [facility], 2 Hepatology Ervin Burgos M.D. [address] [place] [phone] Surgery Gastroenterology and [facility] ESOPHAG OGASTRODUODENOSCOPY 2 Hepatology Tyrell Rodriguez M.D. 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 PCP - General Internal Medicine 12/01/[address] [place] [address] ADI PANIAGUA [phone] [facility]- [place] lab 08/25/21 Ervin Schroeder MD Referring Provider Family Medicine 03/24/[address] [place] [address] ADI Paniagua [phone] documented as of this encounter
--- OUTSIDE RECORDS SUMMARY | 2022-02-16 12:18 | XMS_ITS | Encounter Summary ---
:1990 Author Organization [facility] Address [address] [place] [address] Care Team Providers Name Role Phone Ana Red P.A.-C. Primary Care Provider [phone] Encounter Details Date Type Department Care [...] you attend yazidi or Patient refused 2021 yazdanism services? 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 [address] [place] [phone] Virtual Visit Transplant LuisNew abdular 2 YTyrell M.D. [address] [place] [phone] Office Visit Gastroenterology and LuisMatthew abdul 2 Hepatology Tyrell Rodriguez M.D. [address] [place] [address] [phone] Appointment Radiology Queenie Matthew 2 Tyrell Rodriguez M.D. 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 [address] [place] [phone] Anesthesia Event Gastroenterology and [facility], 2 Hepatology Ervin Burgos M.D. [address] [place] [address] [phone] Surgery Gastroenterology and [facility] ESOPHAG OGASTRODUODENOSCOPY 2 Hepatology Tyrell Rodriguez M.D. 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 PCP - General Internal Medicine 12/01/[address] [place] [address] [phone] [facility]- [place] lab 08/25/21 Ervin Schroeder MD Referring Provider Family Medicine 03/24/[address] [place] [address] [phone] documented as of this encounter
--- OUTSIDE RECORDS SUMMARY | 2022-02-16 12:18 | XMS_ITS | Encounter Summary ---
:1990 Author Organization [facility] Address [address] [place] [address] Care Team Providers Name Role Phone Ana [...] you attend mosque or Patient refused 2021 amish services? 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 [address] [place] [phone] Virtual Visit Transplant LuisNew abdular 2 YTyrell M.D. [address] [place] [address] [phone] Office Visit Gastroenterology and LuisMatthew abdul 2 Hepatology Tyrell Rodriguez M.D. [address] [place] [address] [phone] Appointment Radiology Queenie Matthew 2 Tyrell Rodriguez M.D. [address] [place] [phone] [facility] Cirrhos is Alcoholic (HCC) 2 Encounter Hepatology Tyrell Rodriguez M.D. [address] [place] [phone] Anesthesia Event Gastroenterology and [facility]l, 2 Hepatology Ervin Burgos M.D. [address] [place] [address] [phone] Surgery Gastroenterology and [facility] ESOPHAG OGASTRODUODENOSCOPY 2 Hepatology Tyrell Rodriguez M.D. 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 PCP - General Internal Medicine 12/01/[address] [place] [phone] [facility]- [facility] 08/25/21 Ervin Schroeder MD Referring Provider Family Medicine 03/24/[address] [place] [phone] documented as of this encounter
--- OUTSIDE RECORDS SUMMARY | 2022-02-16 12:18 | XMS_ITS | Encounter Summary ---
:1990 Author Organization [facility] Address [address] [place] [address] Care Team Providers Name Role Phone Ana Red P.A.-C. Primary Care Provider [phone] Reason for Referral Outpatient (Routine) - Authorized Specialty Diagnoses / Procedures Referred By Contact Refer red To Contact Diagnoses Cirrhosis Alcoholic (HCC) Hypertension Portal (HCC) Esophageal Varices Without Bleeding (HCC) Yue Silver M.D. [facility] Procedures EGD [address] [place] [phone] Referral ID Status Reason Start Date Expiration Date Visits V isits Requested Authorized [id number] Authorized 11/19/2021 11/19/2022 1 1 Outpatient (Routine) - Authorized Specialty Diagnoses / Procedures Referred By Contact Refer red To Contact Diagnoses Cirrhosis Alcoholic (HCC) Ascites Hepatic Failure Unspecified Without Coma (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 (HCC) Gerda Hull M.D., M.S. [address] [place] [address] [phone] Referral ID Status Reason Start Date Expiration Date Visits V isits Requested Authorized [id number] Authorized 01/27/2022 01/27/2023 1 1 Reason for [...] Expiration Date Visits Requ ested Visits Authorized [id number] 1 1 Encounter Details Date Type Department Care Team Description 01/20/2022 - [facility] Cody Knight M.D. [address] [place] [address] [phone] Failure Renal Acute (Acute Kidney Injury ) (HCC) (Primary Dx); [facility] [address] [place] [address] [phone] Cirrhosis Alcoholic (HCC); [facility] [address] [place] [address] [phone] Alcohol Use Unspecified With Unspecified Alcohol Induced Disorder (HCC); Ervin Hamm M.D. [address] [place] [address] [phone] Ascites; Building, Fifth Hepatic Fail ure Unspecified Without Coma (HCC); Floor Hepatic Encephalopathy Witho ut Coma (HCC); [address] [place] [address] Debility [R53.81 (ICD-10-CM) ]; [place], [place] Decline Functi onal Status [R53.81 (ICD-10-CM)]; [id number] Thrombocytopenia (HCC); [phone] Ascites Chronic ; Cirrhosis Alcoh olic (HCC); [...] you attend yarsani or Patient refused 2021 jewish services? 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 I personally reviewed the discharge [...] OVERVIEW Hospital: [facility] Discharge Provider: Ervin Mazariegos M.D. Primary Team: [facility] Medicine 3 ([facility]) Primary Care Providers: Ana Red P.A.-C. (General) [address] [place] [phone] Primary Care Provider Primary Care Provider Other [...] 10 Transplant 01/28/2022 2:00 PM LAB 01 [facility] Laboratory Medicine 01/28/2022 2:20 PM LAB 01 [facility] Laboratory Medicine 01/28/2022 2:45 PM Matthew [...] - Ask transplant clinic for a social work job titles or casey saw operator - Continue weekly AA meetings. Find a [...] the [facility] Medicine 3 ([facility]) Service. Please identify this service name if you call with questions after hospitalization. [facility] experts agree: You should get a COVID-19 vaccine as soon as it's available to you. The vaccines that we???re recommending have been approved for safe use. [facility] will continue to coordinate with state and local governments on future vaccine distribution phases. o If your primary care provider is at [facility] and you plan to receive your vaccination at [facility], please ensure that you have activated your Patient Portal at [facility] to allow [facility] to communicate to you about the scheduling [...] Discharge information provided on 01/27/2022 Contact information: [facility], Nitin Blunt, documented in this encounter Medications [...] 01/28/2022 3:15 PM CDT [facility] Medicine 3 ([facility]) PROGRESS NOTE SUBJECTIVE Christelle says she [...] / PLAN Ms. Carias is hospitalized on [place] [address] ([facility]) for evaluation and management of Failure [...] 40mg # Dispo - Please provide a non-[facility] home health order for resumption of previous services by home health care for custodial once a week medication management on the [...] with [facility] Medicine 3 ([facility]) [employer], Ervin Osorio M.D., who was present during judd portions of the evaluation today. Please page the [facility] Medicine 3 ([facility]) service pager at [phone] with any questions. T Carlotta Rader RDN, TALI - 01/28/2022 3:09 PM [...] +1 generalized, +1-2 BLE edema noted per shaker plate operator. Estimated Needs: Total Calorie Needs: 0686-1781 calories/day Method to Estimate Energy Needs: [place] (Basal to Basal + 20%) Weight Used [...] about patient's nutritional care please contact pager [phone] on weekdays or [phone] on weekends/holidays. Ervin Mazariegos M.D. - 01/28/2022 1:19 PM CDT [facility] Medicine 3 ([facility]) Supervisory Note I have seen and [...] our team's planof care. Counseling was provided [id number]-[id number]-kokz at bedside regarding the plan of care [...] Treat general acute Onset Date: 01/20/22 Payor: [facility] [place] / Plan: [facility] [place] CARE [place]ED PLAN / Product [...] Modified independent Assessment/Delivery: Assessed Toilet Transfers Comments: Fwo-lg-[id number] transfers as above; patient initially requesting therapist [...] needs met and questions answered. Outcome Measures -[facility] Inpatient Short Form: -[facility] Basic Mobility (V.2) How much help from [...] 3-5 steps with a railing?: A Little AM-[facility] Basic Mobility (V.2) Raw Score: 23 AM-PAC Basic Mobility (V.2) Standardized Score: 50.88 Interpretation: Clinicians answer the -[facility] Inpatient Short Form based on observed patient [...] min Total Treatment Time (min): 20 min (0319-0200) Allie Greer P.T., Slick.P.T. Harlan Monterroso, RSumaN. - 01/28/2022 7:22 AM CDT SUBJECTIVE Referral Data Discharge Planning: Reconnection of [facility] patient declined additional resources. Anticipated Needs [...] Selected Services Address Phone Fax Patient Preferred [facility] [address] [facility] [facility] [phone] -- Contact: Intake NURSING: - Complete documentation in the Discharge Navigator including Nursing Report Info and Facility/NextLevel of Care Info - Call report and arrange for the patient???s first visit. - Send required packet of dismissal information with patient, including After Visit Summary and advance directive. PRIMARY SERVICE: - Please provide a non-[facility] home health order for resumption of previous services by home health care for custodial once a week medication management on the [...] CDT [facility] Medicine 3 ([facility]) Supervisory Note I have seen and [...] team's plan of care. Counseling was provided qsdq-ce-nyvr at bedside regarding the plan of care as stated above. I personally spent over half of a total 25 minutes in counseling and coordination of care as documented above. Gerda Shirley M.D., M.S. - 01/27/2022 11:[address] [facility] ([facility]) PROGRESS NOTE SUBJECTIVE Patient had EGD [...] past 72 hours. ASSESSMENT / PLAN Ms. Cairas is hospitalized on [place] [address] ([facility]) for evaluation and management of Failure [...] 40mg # Dispo - Please provide a [facility] home health order for resumption of previous services by home health care for custodial once a week medication management on the [...] with [facility] Medicine 3 ([facility]) [employer], Ervin Osorio M.D., who was present during judd portions of the evaluation today. Please page the [facility] Medicine 3 ([facility]) service pager at [phone] with any questions. Nora Kelly Pharm.D., R.Ph. [...] Mazariegos M.D. - 01/26/2022 2:01 PM CDT [facility] Medicine 3 ([facility]) Supervisory Note I have seen and [...] our team's planof care. Counseling was provided [id number] at bedside regarding the plan of care [...] note pulled forward below from 01/21/2022 by Director Enterprise Sales Virginia Handley M.S., R.N. SUBJECTIVE Referral Data Discharge Planning: Reconnection of [facility] patient declined additional resources. Anticipated Needs [...] Selected Services Address Phone Fax Patient Preferred [facility] [address] [facility] [phone] -- Contact: Intake NURSING: - Complete documentation in the Discharge Navigator including Nursing Report Info and Facility/NextLevel of Care Info - Call report and arrange for the patient???s first visit. - Send required packet of dismissal information with patient, including After Visit Summary and advance directive. PRIMARY SERVICE: - Please provide a non-[facility] home health order for resumption of previous services by home health care for custodial once a week medication management on the [...] 01/26/2022 6:12 AM CDT [facility] 3 ([facility]) PROGRESS NOTE SUBJECTIVE Ms. Carias reports [...] / PLAN Ms. Carias is hospitalized on [facility] ([facility]) for evaluation and management of Failure [...] 40mg # Dispo - Please provide a [facility] home health order for resumption of previous services by home health care for custodial once a week medication management on the [...] with [facility] Medicine 3 ([facility]) [employer], Joshua Ayala M.D., who was present during judd portions of the evaluation today. Please page the [facility] Medicine 3 ([facility]) service pager at [phone] with any questions. Rhea Silver MD Nora [...] 01/25/2022 6:06 AM CDT [facility] 3 ([facility]) PROGRESS NOTE SUBJECTIVE Ms. Carias reports [...] / PLAN Ms. Carias is hospitalized on [place] [address] ([facility]) for evaluation and management of Failure [...] with [facility] Medicine 3 ([facility]) [employer], Joshua Ayala M.D., who was present during judd portions of the evaluation today. Please page the [facility] Medicine 3 ([facility]) service pager at [phone] with any questions. Rhea Silver MD Associated attestation - Joshua Johnson M.D. - 01/25/2022 3:45 PM CDT I saw and evaluated the patient, participating in the judd portions of the service. I reviewed the resident/fellow???s note. I agree with the resident/fellow???s findings and plan. Yue Silver M.D. - 01/24/2022 7:11 AM CDT [facility] Medicine 3 ([facility]) PROGRESS NOTE SUBJECTIVE Ms. Carias reports [...] / PLAN Ms. Carias is hospitalized on [place] [address] ([facility]) for evaluation and management of Failure [...] with [facility] Medicine 3 ([facility]) [employer], Joshua Ayala M.D., who was present during judd portions of the evaluation today. Please page the [facility] Medicine 3 ([facility]) service pager at [phone] with any questions. Rhea Silver MD Associated [...] Internal Medicine, PGY-1 Medicine 3 Service Pager [phone] Migue Spencer - 01/23/2022 11:24 AM CDT [facility] 3 ([facility]) PROGRESS NOTE SUBJECTIVE Ms. Carias did [...] / PLAN Ms. Carias is hospitalized on [facility] 3 ([facility]) for evaluation and management of Failure [...] with [facility] Medicine 3 ([facility]) [employer], Joshua Ayala M.D., who was present during judd portions of the evaluation today. Please page the [facility] Medicine 3 ([facility]) service pager at [phone] with any questions. Migue Spencer Third-Year Medical Student [facility] Joshua Francois M.D. - 01/23/2022 10:29 [...] had any bowel movements despite lactulose treatment. [place] making test was completed 37 seconds indicating [...] Care Management Consult completed by SOPHIA Ramsey, HALL CLEANER on 01/12/22. SUBJECTIVE Referral Data Discharge Planning: Reconnection of [facility] patient declined additional resources. Anticipated Needs [...] Selected Services Address Phone Fax Patient Preferred [facility] [address], [facility] [phone] -- Contact: Intake NURSING: - Complete documentation in the Discharge Navigator including Nursing Report Info and Facility/NextLevel of Care Info - Call report and arrange for the patient???s first visit. - Send required packet of dismissal information with patient, including After Visit Summary and advance directive. PRIMARY SERVICE: - Please provide a non-[facility] home health order for resumption of previous services by home health care for custodial once a week medication management on the [...] 01/20/2022 11:45 PM CDT T Medicine 3 ([facility]) Senior Admission Note SUBJECTIVE CHIEF COMPLAINT: [...] splenomegaly palpable in tender to palpation Skin: [facility] Extremities: Warm well perfused, no muscular atrophy [...] will be formally staffed with the supervising erp implementation consultant in the morning. Please page the [facility] 3 ([facility]) service pager with any questions. Kathy [...] Treat general acute Onset Date: 01/20/22 Payor: [facility] [place] / Plan: [facility] C[facility] RESTRICTED PLAN / Product Type: Medicaid [...] Pretransplant Recipient Evaluation Exam Deficiency Vitamin A Jail Use Of Opiate Analgesic Nicotine Dependence Cigarettes [...] >1 year Prior Mobility/Functional Transfers Level of [place]: Modified independent Gait Devices/Wheelchair Used: Front wheeled [...] needs met and questions answered. Outcome Measures [facility] Inpatient Short Form: -[facility] Basic Mobility (V.2) How much help from [...] 3-5 steps with a railing?: A Lot -[facility] Basic Mobility (V.2) Raw Score: 19 -[facility] Basic Mobility (V.2) Standardized Score: 42.48 Interpretation: Clinicians answer the -[facility] Inpatient Short Form based on observed patient [...] Inpatient Appointment: 01/28/22 PT Plan Comments: Progress ado-kr-bwisw transfers; progress ambulation; stair negotiation Treatment interventions may include: Treatment/Interventions: Therapeutic functional activity, Gait training, Self- care/home management Billing: Time Spent with Patient Evaluations PT Eval - Mod Complexity: 10 min Therapeutic Interventions Therapeutic Activity (min): 16 min Time Tracking Total Timed Units (min): 16 min Total Treatment Time (min): 26 min (8935-2543; Co-evaluation and treatment session with OT in order to optimize patient care. The patient benefitted from having two skilled therapists present in order to maximize mobility progression and maximize safety. OT and PT addressed different aspects of mobility during treatment session) Allie Greer P.T., D.P.T. Alysia Baeza M.S. - 01/27/2022 1:03 PM CDT Occupational Therapy [facility] Inpatient Evaluation/Treatment SUBJECTIVE Patient's Name: Catia Carias Referring/Attending Provider: Ervin Mazariegos M.D. Medical Diagnosis: Cirrhosis Alcoholic (HCC) [K70.30] Failure Renal Acute (Acute Kidney Injury) (HCC) [N17.9] Ascites [R18.8] Alcohol Use Unspecified With Unspecified Alcohol Induced Disorder (HCC) [F10.99] Hepatic Failure Unspecified Without Coma (HCC) [K72.90] Reason for Referral: Occupational Therapy Evaluation and Treatment OT General Acute Onset Date: 01/20/22 Payor: [facility] [place] / Plan[place] [facility] [place] PLAN / Product [...] Pretransplant Recipient Evaluation Exam Deficiency Vitamin A Jail Use Of Opiate Analgesic Nicotine Dependence Cigarettes [...] paint, color Prior Mobility/Functional Transfers Level of [place]: Modified independent Gait Devices/Wheelchair Used: Front wheeled [...] Completion Date - OT: 01/27/22 Outcome Measures [facility] Inpatient Short Form: Putting on and [...] Standardized Score: 42.03 Interpretation: Clinicians answer the [facility] Inpatient Short Form based on observed [...] in shower, Grab bar(s) by toilet (Long-handled electric stove installer; Long-handled sponge) Barriers to Discharge Home: Current [...] Shift Summary: Patient's VSS t/o shift; BP jaiv to 100s SBP following administration of albumin and paracentesis (3 L removed). She reported adequate pain management w/ pharmacological and non-pharmacological measures. Nausea managed w/ Compazine. Patient elected to rest in bed most of the day. Transferring using GB/pivot w/ 1-2. [facility] setup by JB. Patient states all needs [...] an outpatient by her providers in the [place] area. She was advised to come to [...] U Negative Ketone, POCT, U Trace(!) Specific [place], POCT, U 1.015 Blood, POCT, U Negative [...] 01/20/2022 8:06 PM CDT Pt presents to [place] [address] with back pain, rib cage pn, and [...] Radiology Matthew Jerome 2 Tyrell Rodriguez M.D. [address] [place] [address] [phone] Appointment Gastroenterology and Adrianne, 2 Hepatology Yue Burciaga M.D. [address] [place] [phone] Virtual Visit Transplant Matthew Jerome 2 Tyrell Rodriguez M.D. [address] [place] [address] [phone] Office Visit Gastroenterology and Matthew Jerome 2 Hepatology Tyrell Rodriguez M.D. [address] [place] [address] [phone] Appointment Radiology Matthew Jerome 2 Tyrell Rodriguez M.D. [address] [place] [address] [phone] Hospital Gastroenterology and Matthew Jerome Cirrhos is Alcoholic (HCC) 2 Encounter Hepatology Tyrell Rodriguez M.D. [address] [place] [phone] Anesthesia Event Gastroenterology and Rl, 2 Hepatology Ervin Burgos M.D. [address] [place] [address] [phone] Surgery Gastroenterology and Mousa, Matthew ESOPHAG OGASTRODUODENOSCOPY 2 Hepatology Tyrell Rodriguez M.D. 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 LAB BLOOD ADD-ON Performing Organization Address City/[facility] Code Phon e Number [facility] - [address] (ABNORMAL) Basic Metabolic Panel (01/29/2022 4:39 [...] M.D. LAB BLOOD ADD-ON Performing Organization Address City/[facility]/ZIP Code Phon e Number [facility] - [address] [place] [address] [address] [place] [id number] [address] (ABNORMAL) Hematocrit (01/28/2022 1:36 PM CDT) P athologist Signature Hematocrit 22.0 (L) 35.5 - 44.9 01/28/2022 [facility]10 PM CDT Specimen Anatomical Collection Method Collection Time Receive d Time (Source) Location / / Volume Laterality Blood (Blood, 01/28/2022 1:36 PM 01/29/20 22 2:08 Venous) CDT PM CDT Yue Silver M.D. LAB BLOOD ADD-ON Performing Organization Address City/State/ZIP Code Phon e Number [facility] - [address] [place] [address] [address] [place] [address] Laboratories-[address] [place] Lower Extremity Veins Bilateral (01/28/2022 [...] man agement can be found on the [employer] site. Link [email or web address] Procedure Note Migue Talavera M.D. - 01/28/2022Form [...] man agement can be found on the [employer] site. Link [email or web address] IMPRESSION: 1. Negative for acute DVT within [...] MEDICAL CENTER LABORATORIES - [address] [place], [place] [address] [facility] [place] [place] [address] Laboratories-[facility] [address] (ABNORMAL) Basic [...] Number [facility] - [address] [place] [address] [facility] [place] [address] Laboratories-[facility] [address] (ABNORMAL) CBC without Differential (01/28/2022 5:28 AM CDT) [facility] gist Method Time Signature Hemoglobin 7.4 [...] M.S. LAB BLOOD ADD-ON Performing Organization Address City/State/[facility] Code Phon e Number [facility] - [address] [place] [address] [facility] [place] [place] [address] Laboratories-[facility] [address] [place] Paracentesis [...] with Differential, Blood (01/27/2022 4:47 AM CDT) [facility] Time Signature Hemoglobin 7.4 (L) 11.6 [...] Number [facility] - [address] [place] [address] [facility] [place] [address] Laboratories-[facility] 200 [facility] Basic Metabolic Panel (01/27/2022 4:47 AM CDT) [...] MEDICAL CENTER LAB[facility] - [address] [place], [place] [address] [facility] [place] [address] Laboratories-[facility] [address] (ABNORMAL) Cystatin [...] DanielSSuma LAB BLOOD ADD-ON Performing Organization Address City/[facility] Phon e Number [facility] - [address] [place] [address] (ABNORMAL) Coagulation Factor XI Activity Assay (01/26/2022 6:58 PM CDT) athologist Signature Coag Factor XI 18 (L) 55 - 150 % 01/27/2022 [facility] Assay, P 12:47 PM CDT Comment: ----ADDITIONAL INFORMATION---- This test has been modified from the man flakitar's instructions. Its performance characteri stics were determined by [facility] in a manner co nsistent with CLIA requirements. This test has not bee n cleared or approved by the U.S. Food and Drug Admin istration. Specimen Anatomical Collection Method Collection Time Receive d Time (Source) Location / / Volume Laterality Blood 01/26/2022 6:58 PM 2 CDT 11:30 AM CDT Darrick DanielSSuma LAB BLOOD ADD-ON Performing Organization Address City/State/[facility] Phon e Number [facility] - [address] [place] [address] (ABNORMAL) Coagulation Factor XII Activity Assay (01/26/2022 6:58 PM CDT) P athologist Signature Coag Factor XII 32 (L) 55 - 180 % 01/27/2022 [facility] Assay, P 12:47 PM CDT Comment: ----ADDITIONAL INFORMATION---- This test has been modified from the [facility] hospital[facility]'s instructions. Its performance characteri stics were determined by [facility] in a manner co nsistent with CLIA requirements. This test has not bee n cleared or approved by the U.S. Food and Drug Admin istration. Specimen Anatomical Collection Method Collection Time Receive d Time (Source) Location / / Volume Laterality Blood 01/26/2022 6:58 PM 2 CDT 11:30 AM CDT Darrick DanielSSuma LAB BLOOD ADD-ON Performing Organization Address City/[facility] Phon e Number [facility] - [address] [place] [address] (ABNORMAL) Coagulation Factor IX Activity Assay (01/26/2022 6:58 PM CDT) athologist Signature Coag Factor IX 29 (L) 65 - 140 % 01/27/2022 DTL Assay, P 12:47 PM CDT Comment: ----ADDITIONAL INFORMATION---- This test has been modified from the [facility] instructions. Its performance characteri stics were determined by [facility] in a manner co nsistent with CLIA [...] [facility] - [address] [place] [address] Laboratories-[address] Coagulation Factor VIII Activity Assay (01/26/2022 6:58 PM CDT) athologist Signature Coag Factor 93 55 - 200 % 01/27/2022 DTL VIII Activity 12:19 PM CDT Assay, P Comment: ----ADDITIONAL INFORMATION---- This test has been modified from the [facility] instructions. Its performance characteri stics were determined by [facility] in a manner co nsistent with CLIA requirements. This test has not bee n cleared or approved by the U.S. Food and Drug Admin istration. Specimen Anatomical Collection Method Collection Time Receive d Time (Source) Location / / Volume Laterality Blood 01/26/2022 6:58 PM 2 CDT 11:30 AM CDT Darrick DanielSSuma LAB BLOOD ADD-ON Performing Organization Address City/[facility] Phon e Number [facility] - [address] [place] [address] (ABNORMAL) Coag Factor X Assay, P (01/26/2022 6:58 PM CDT) athologist Signature Coag Factor X 29 (L) 70 - 150 % 01/27/2022 DTL Assay, P 12:19 PM CDT Comment: ----ADDITIONAL INFORMATION---- This test has been modified from the [facility] instructions. Its performance characteri stics were determined by [facility] in a manner co nsistent with CLIA [...] [facility] - [address] [place] [address] Laboratories[address] (ABNORMAL) Coagulation Factor VII Activity Assay (01/26/2022 6:58 PM CDT) athologist Signature Coag Factor VII 13 (L) 65 - 180 % 01/27/2022 DTL Assay, P 12:19 PM CDT Comment: ----ADDITIONAL INFORMATION---- This test has been modified from the [facility] instructions. Its performance characteri stics were determined by [facility] in a manner co nsistent with CLIA requirements. This test has not bee n cleared or approved by the U.S. Food and Drug Admin istration. Specimen Anatomical Collection Method Collection Time Receive d Time (Source) Location / / Volume Laterality Blood 01/26/2022 6:58 PM 2 CDT 11:30 AM CDT Darrick DanielSSuma LAB BLOOD ADD-ON Performing Organization Address City/[facility] Phon e Number [facility] - [address] [place] [address] [place] [address] (ABNORMAL) Coagulation Factor V Activity Assay (01/26/2022 6:58 PM CDT) athologist Signature Coag Factor V 18 (L) 70 - 165 % 01/27/2022 DTL Assay, P 12:19 PM CDT Comment: ----ADDITIONAL INFORMATION---- This test has been modified from the [facility] hospital[facility] instructions. Its performance characteri stics were determined by [facility] in a manner co nsistent with CLIA requirements. This test has not bee n cleared or approved by the U.S. Food and Drug Admin istration. Specimen Anatomical Collection Method Collection Time Receive d Time (Source) Location / / Volume Laterality Blood 01/26/2022 6:58 PM 2 CDT 11:30 AM CDT Darrick DanielSSuma LAB BLOOD ADD-ON Performing Organization Address City/[facility] Phon e Number [facility] - [address] [place] [address] [place] [address] Laboratories[address] (ABNORMAL) Coagulation Factor II Activity Assay (01/26/2022 6:58 PM CDT) athologist Signature Coag Factor II 28 (L) 75 - 145 % 01/27/2022 [facility] Assay, P 12:19 PM CDT Comment: ----ADDITIONAL INFORMATION---- This test has been modified from the [facility] hospital[facility]'s instructions. Its performance characteri stics were determined by [facility] in a manner co nsistent with CLIA requirements. This test has not bee n cleared or approved by the U.S. Food and Drug Admin istration. Specimen Anatomical Collection Method Collection Time Receive d Time (Source) Location / / Volume Laterality Blood 01/26/2022 6:58 PM 2 CDT 11:30 AM CDT Darrick DanielSSuma LAB BLOOD ADD-ON Performing Organization Address City/[facility] Phon e Number [facility] - [address] [place] [address] Reptilase Time, Plasma (01/26/2022 6:58 PM CDT) athologist Signature Reptilase Time, 21.0 14.0 - 23.9 01/27/2022 [facility] P sec 11:03 AM CDT Comment: ----ADDITIONAL INFORMATION---- This test has been modified from the [facility] hospital[facility]'s instructions. Its performance characteri stics were determined by [facility] in a manner co nsistent with CLIA requirements. This test has not bee n cleared or approved by the U.S. Food and Drug Admin istration. Specimen Anatomical Collection Method Collection Time Receive d Time (Source) Location / / Volume Laterality Blood 01/26/2022 6:58 PM 2 7:12 CDT AM CDT Darrick DanielSSuma LAB BLOOD ADD-ON Performing Organization Address City/[facility] Phon e Number [facility] - [address] [place] [address] PT Mix 1:1 (01/26/2022 6:58 PM CDT) athologist Signature PT Mix 1:1 11.8 9.4 - 12.5 01/27/2022 DTL sec 11:04 AM CDT Comment: ----ADDITIONAL INFORMATION---- This test has been modified from the doug boggsr's instructions. Its performance characteri stics were determined by [facility] in a manner co nsistent with CLIA requirements. This test has not bee n cleared or approved by the U.S. Food and Drug Admin istration. Specimen Anatomical Collection Method Collection Time Receive d Time (Source) Location / / Volume Laterality Blood 01/26/2022 6:58 PM 2 7:12 CDT AM CDT Darrick DanielSSuma LAB BLOOD ADD-ON Performing Organization Address City/[facility] Phon e Number [address] APTT Mix 1:1 (01/26/2022 6:58 PM CDT) athologist Signature APTT Mix 1:1 28 25 - 37 sec 01/27/2022 DTL 11:04 AM CDT Comment: ----ADDITIONAL INFORMATION---- This test has been modified from the doug boggsr's instructions. Its performance characteri stics were determined by [facility] in a manner co nsistent with CLIA requirements. This test has not bee n cleared or approved by the U.S. Food and Drug Admin istration. Specimen Anatomical Collection Method Collection Time Receive d Time (Source) Location / / Volume Laterality Blood 01/26/2022 6:58 PM 2 7:12 CDT AM CDT Darrick DanielSSuma LAB BLOOD ADD-ON Performing Organization Address City/[facility] Phon e Number [facility] - [address] Dilute Russells Viper Venom Time (DRVVT) (01/26/2022 6:58 PM CDT) athologist Signature DRVVT Screen 0.85 <1.20 ratio 01/27/2022 DTL Ratio 11:04 AM CDT Specimen Anatomical Collection Method Collection Time Receive d Time (Source) Location / / Volume Laterality Blood 01/26/2022 6:58 PM 2 7:12 CDT AM CDT Darrick DanielS. LAB BLOOD ADD-ON Performing Organization Address City/[facility]/ZIP Code Phon e Number [facility] - [address] (ABNORMAL) PT-Fibrinogen (01/26/2022 6:58 PM CDT) athologist Signature PT-Fibrinogen, 241 (L) 261 - 595 01/27/2022 DTL P mg/dL 9:36 AM CDT Specimen Anatomical Collection Method Collection Time Receive d Time (Source) Location / / Volume Laterality Blood 01/26/2022 6:58 PM 2 7:12 CDT AM CDT Darrick DanielS. LAB BLOOD NON ADD-ON Performing Organization Address [facility] Phon e Number [facility] - [address] (ABNORMAL) Soluble Fibrin Monomer (01/26/2022 6:58 PM CDT) P athologist Signature Soluble Fibrin 165 (H) <=8 mcg/mL 01/27/2022 DTL Monomer 10:57 AM CDT Comment: ----ADDITIONAL INFORMATION---- This test was developed and its performa nce characteristics determined by [facility] in a manner co nsistent with CLIA requirements. This test has not bee n cleared or approved by the U.S. Food and Drug Admin istration. Specimen Anatomical Collection Method Collection Time Receive d Time (Source) Location / / Volume Laterality Blood 01/26/2022 6:58 PM 2 7:12 CDT AM CDT Darrick DanielSSuma LAB BLOOD NON ADD-ON Performing Organization Address City/[facility]/ZIP Code Phon e Number [facility] - 200 [place], [place] [address] [facility] [place] [address] Laboratories-[facility] [address] [facility] (ABNORMAL) DIC/ICF Profile (01/26/2022 6:58 PM CDT) [facility] gist Method Time Signature Prothrombin Time [...] characteri stics were determined by [facility] in a manner co nsistent with CLIA [...] 01/28/20 7:12 Venous) CDT AM CDT Narrative [facility] - [facility] - 01/27/2022 5:26 PM CDT Specimen Information: Specimen ID: [id number] Specimen Type: Blood Specimen Collection Start Date: 01/27/20 22 ??6:58 PM Specimen Received Date: 01/27/2022 ??7:1 2 AM Specimen ID: [id number] Specimen Type: Blood Specimen Collection Start Date: 01/27/20 ??6:58 PM Specimen Received Date: 01/27/2022 ??7:1 2 AM Specimen ID: [id number] Specimen Type: Blood Specimen Collection Start Date: 01/27/20 ??6:58 PM Specimen Received Date: 01/27/2022 ??7:1 2 AM Specimen ID: [id number] Specimen Type: Blood Specimen Collection Start Date: 01/27/20 ??6:58 PM Specimen Received Date: 01/27/2022 ??7:1 2 AM Specimen ID: [id number] Specimen Type: Blood Specimen Collection Start Date: 01/27/20 ??6:58 PM Specimen Received Date: 01/27/2022 ??7:1 2 AM Darrick Santillan LAB BLOOD NON ADD-ON Performing Organization Address City/[facility] Phon e Number [facility] [place] [address] [address] [place] [address] Laboratories-[facility] 200 [facility] (ABNORMAL) Copper (01/26/2022 6:57 PM CDT) athologist Signature Copper, S 58 (L) 77 - 206 01/27/2022 [facility] mcg/dL 11:02 AM CDT Comment: ----ADDITIONAL INFORMATION---- This test was developed and its performa nce characteristics determined by [facility] in a manner consistent with CLIA requirements. This test has not been cleared or approved by the U.[place]. Meg[place] d and Drug Administration. Specimen Anatomical Collection Method Collection Time Receive d Time (Source) Location / / Volume Laterality Blood (Blood, 01/26/2022 6:57 PM 01/28/20 7:45 Venous) CDT AM CDT Darrick Santillan LAB BLOOD NON ADD-ON Performing Organization Address City/[facility]/ZIP Code Phon e Number [facility] [address] [place], [place] [address] [place], [place] [id number] [place] [address] Dr. TA Mueller (01/26/2022 6:57 PM CDT) athologist Signature Lance Mueller 66 60 - 106 01/27/2022 [facility] mcg/dL 11:02 AM CDT Comment: ----ADDITIONAL INFORMATION---- This test was developed and its performa nce characteristics determined by [facility] in a manner consistent with CLIA requirements. [...] Address City/State/ZIP Code Phon e Number [address] [place] [address] [address] [place], [place] [id number] [place] [address] Dr. CHAPPELL Upper GI Endoscopy (01/26/2022 3:18 [...] (non-bleeding). ? - No specimens collected. Narrative [employer] - 01/26/2022 10:50 PM CDT Otto [...] No immedia te complications. Sedation: ? General hall tender Participation: I was present a nd participated during the entire ? pro cedure, including non-judd portions. Andreas Price MD 01/26/2022 10:50:15 PM This report has been signed electronical ly. Number of Addenda: 0 Huang Diamond M.D. GI PROCEDURE ORDERABLES Performing Organization Address City/[facility]/ZIP Code Phon e Number [employer] [employer] NA Transfuse Fresh Frozen Plasma :INR >2: Invasive proc scheduled; 180 mL/hr (01/26/2022 11:20 AM CDT) Darrick CheryB.S. BLOOD TRANSFUSION ORDERABLES Transfuse Fresh Frozen Plasma :INR >2: Invasive proc scheduled; 180 mL/hr, 2 Units (01/26/2022 11:20 AM CDT) Darrick CheryB.S. BLOOD TRANSFUSION ORDERABLES (ABNORMAL) Hematocrit (01/26/2022 11:16 AM CDT) athologist Signature Hematocrit 21.3 (L) 35.5 - 44.9 01/26/2022 [facility] 11[facility]25 AM CDT Specimen Anatomical Collection Method Collection Time Receive d Time (Source) Location / / Volume Laterality Blood (Blood, 01/26/2022 11:16 01/26/2022 Venous) AM CDT 11:22 AM CDT Gerda Hull M.D., M.S. LAB BLOOD ADD-ON Performing Organization Address City/State/ZIP Code Phon e Number [facility] - [address] [place], [place] [address] [facility] [place] [address] Laboratories-[facility] [address] (ABNORMAL) Hemoglobin [...] [facility] - 200 [place], [place] [address] [facility] [place] [address] Laboratories-[facility] 200 [facility] Transfuse Emergency Released Red Blood Cells (Uncrossmatched) [...] Signature Ventricular Rate 96 BPM MUSE ECG/Min NC Interval 166 ms MUSE QRSD Interval 88 ms MUSE QT Interval 364 ms MUSE QTC Interval 460 ms MUSE P Jefferson 56 degrees MUSE R Jefferson 50 degrees MUSE T Wave [place] 32 degrees MUSE Specimen Anatomical Collection Method [...] Silver M.D. ECG ORDERABLES Performing Organization Address City/[facility]/ZIP Code Phon e Number MUSE [...] M.D. LAB BLOOD ADD-ON Performing Organization Address City/[facility]/ZIP Code Phon e Number [facility] - [address] [place] [address] [facility] [place] [address] Laboratories-[facility] 200 [facility] (ABNORMAL) Basic Metabolic Panel (01/26/2022 4:53 AM [...] Number [facility] - [address] [place] [address] [facility] [place] [place] [address] Laboratories-[facility] 200 [facility] (ABNORMAL) CBC with Differential, Blood (01/26/2022 4:53 AM CDT) [facility] Method Time Signature Hemoglobin 6.3 (L) [...] Number [facility] - [address] [place] [address] [facility] [place] [address] Laboratories-[address] Type and Screen (with reflex Antibody ID) (01/26/2022 4:48 AM CDT) [facility] gist Method Time Signature ABORh B Pos Not 01/26/2022 STRM applicable 9:18 AM CDT Antibody Negative Negative 01/26/2022 STRM Screen 9:34 AM CDT Type & Screen 01/29/2022 01/26/2022 STRM Expiration 23:59 9:18 AM CDT Testing [place] DEFAULT 01/26/2022 STRM Location 8:55 AM CDT Specimen Anatomical Collection Method Collection Time Receive d Time (Source) Location / / Volume Laterality Blood (Blood, 01/26/2022 4:48 AM 01/27/20 22 8:55 Venous) CDT AM CDT Darrick DanielSSuma LAB BLOOD BANK TEST ORDERABL ES Performing Organization Address City/State/ZIP Code Phon e Number [facility] - 200 [place], [place] [address] [place] [address] Laboratories-[facility] 200 [facility] HIV-1/-2 Ag and Ab Screen, Plasma (01/25/2022 3:36 PM CDT) P athologist Signature HIV-1/-2 Ag Negative Negative 01/26/2022 [facility] and Ab Screen, 11:53 AM [...] - BLOOD ORD ERABLES Performing Organization Address City/[facility] Phon e Number [facility] [address] [place], [place] [address] [place] [address] [facility] [address] [place] Transfuse Red Blood [...] Santillan LAB BLOOD ADD-ON Performing Organization Address City/[facility] Phon e Number [facility] - 200 [place] [address] [facility] [place] [address] (ABNORMAL) CBC with Differential, Blood (01/25/2022 [...] Santillan LAB BLOOD ADD-ON Performing Organization Address City/State/[facility] Phon e Number [facility] - 200 [place] [address] [facility] [place] [address] [facility]-[address] (ABNORMAL) Basic Metabolic Panel (01/25/2022 5:35 [...] MEDICAL CENTER [facility] - [address] [place], [place] [address] [facility] [place] [address] Laboratories-[facility] [address] (ABNORMAL) Haptoglobin (01/25/2022 5:35 AM CDT) athologist Signature Haptoglobin, S <14 (L) 30 - 200 01/26/2022 [facility] mg/dL 10:51 AM CDT Specimen Anatomical Collection Method Collection Time Receive d Time (Source) Location / / Volume Laterality Blood 01/25/2022 5:35 AM 6:58 CDT AM CDT Darrick Sanitllan LAB BLOOD ADD-ON Performing Organization Address City/[facility]/ZIP Code Phon e Number [facility] [address] [place], [place] [address] [place] [address] [place] LD (Lactate Dehydrogenase) (01/25/2022 5:35 AM CDT) [facility] LD 197 122 - 222 01/25/2022 DTL U/L 6:35 AM CDT Specimen Anatomical Collection Method Collection Time Receive d Time (Source) Location / / Volume Laterality Blood (Blood, 01/25/2022 5:35 AM 01/26/20 6:18 Venous) CDT AM CDT Darrick DanielSSuma LAB BLOOD NON ADD-ON Performing Organization Address City/[facility]/ZIP Code Phon e Number [place] [phone]-[facility] [address] (ABNORMAL) SPSMA Result (01/25/2022 5:35 AM CDT) Analysis Performed [facility] Neutrophilic Segs 74 50 - 75 % [...] Reviewed by: Ruth 01/25/2022 7:03 AM CDT [facility] Specimen Anatomical Collection Method Collection Time Receive d Time (Source) Location / / Volume Laterality Blood (Blood, 01/25/2022 5:35 AM 01/26/20 5:57 Venous) CDT AM CDT Darrick DanielSSuma LAB BLOOD ADD-ON Performing Organization Address City/[facility] Phon e Number [facility] - 200 [place], [place] [address] [place] [address] Laboratories-[facility] 200 [facility] (ABNORMAL) Prothrombin Time (PT) (01/25/2022 5:35 AM [...] DanielSSuma LAB BLOOD ADD-ON Performing Organization Address City/[facility] Code Phon e Number [facility] - [address] [place] [address] [facility] [place] [address] Laboratories-[facility] 200 [facility] Magnesium (01/25/2022 5:30 AM CDT) P athologist [...] [facility] - [address] Direct Antiglobulin Test (Poly) (01/25/2022 5:30 AM CDT) [facility] Method Time Signature Direct Negative Negative 01/25/2022 [facility] Antiglobulin 1:15 PM CDT Test, Polyspecific Specimen Anatomical Collection Method Collection Time Receive d Time (Source) Location / / Volume Laterality Blood (Blood, 01/25/2022 5:30 AM 01/26/20 22 Venous) CDT 11:46 AM CDT Darrick Santillan LAB BLOOD BANK TEST ORDERABL ES Performing Organization Address City/[facility] Phon e Number [facility] - [address] [place] [address] (ABNORMAL) Reticulocytes (01/25/2022 5:30 AM CDT) [facility] Method Time Signature Reticulocytes, B 6.67 [...] Santillan LAB BLOOD ADD-ON Performing Organization Address City/[facility] Code Phon e Number [facility] - [address] [place] [phone] [address] [facility] [place] [address] [place] [address] (ABNORMAL) Dipstick, Urine (01/24/2022 3:32 PM CDT) [facility] gist Method Time Signature Hemoglobin, Small [...] M.D. LAB URINE ORDERABLES Performing Organization Address City/[facility] Phon e Number [facility] [address] Osmolality, Urine (01/24/2022 3:32 PM CDT) athologist Signature Osmolality, U 434 150 - 1150 01/24/2022 DTL mOsm/kg 4:29 PM CDT Specimen Anatomical Collection Method Collection Time Receive d Time (Source) Location / / Volume Laterality Urine 01/24/2022 3:32 PM 2 3:59 CDT PM CDT Yue Silver M.D. LAB URINE ORDERABLES Performing Organization Address City/[facility]/ZIP Code Phon e Number [facility] - 200 [place], [place] [address] [place] [address] pH, Random, Urine (01/24/2022 3:32 PM CDT) athologist Signature pH, Random, U 6.0 4.5 - 8.0 01/24/2022 DTL 4:29 PM CDT Specimen Anatomical Collection Method Collection Time Receive d Time (Source) Location / / Volume Laterality Urine 01/24/2022 3:32 PM 2 3:59 CDT PM CDT Yue Silver M.D. LAB URINE ORDERABLES Performing Organization Address City/[facility]/ZIP Code Phon e Number [facility] - 200 [place], [place] [address] [place] [address] (ABNORMAL) Microscopic Manual (01/24/2022 3:32 PM [...] M.D. LAB URINE ORDERABLES Performing Organization Address City/[facility]/ZIP Code Phon e Number [facility] - 200 [place], [place] [address] [place] [address] Creatinine, Random, Urine (01/24/2022 3:32 PM CDT) athologist Signature Creatinine, 60 16 - 326 01/24/2022 DTL [place], U mg/dL 4:50 PM CDT Specimen Anatomical Collection Method Collection Time Receive d Time (Source) Location / / Volume Laterality Urine (Urine, 01/24/2022 3:32 PM 01/25/20 22 3:59 Midstream) CDT PM CDT Yue Silver M.D. LAB URINE ORDERABLES Performing Organization Address [facility] Phon e Number [facility] - [address] Sodium, Random, Urine (01/24/2022 3:32 PM [...] M.D. LAB URINE ORDERABLES Performing Organization Address [facility] Phon e Number [facility] - [address] [place] [id number] [place] [address] (ABNORMAL) Urinalysis with Microscopic: Urine, Midstream (01/24/2022 [...] M.D. LAB URINE ORDERABLES Performing Organization Address City/[facility]/ZIP Code Phon e Number [facility] - [address] [place] [address] 05 [facility] [place] [address] [address] (ABNORMAL) Bilirubin, Total (01/24/2022 1:35 PM CDT) P athologist Signature Bilirubin, 11.9 (H) <=1.2 01/24/2022 DTL Total, P mg/dL 2:33 PM CDT Specimen Anatomical Collection Method Collection Time Receive d Time (Source) Location / / Volume Laterality Blood 01/24/2022 1:35 PM 1:35 CDT PM CDT Darrick Santillan LAB BLOOD ADD-ON Performing Organization Address City/[facility] Phon e Number [facility] - [address] [place] [address] [place] [address] Laboratories-[address] (ABNORMAL) CBC without Differential (01/24/2022 5:22 [...] Number [facility] - [address] [place] [address] [facility] [place] [address] Laboratories-[facility] 200 [facility] (ABNORMAL) Basic Metabolic Panel (01/24/2022 5:22 AM [...] M.D. LAB BLOOD ADD-ON Performing Organization Address City/[facility] Phon e Number [facility] - [address] [place] [address] 55 05 [place] [address] Laboratories-[address] (ABNORMAL) Bilirubin, Direct (01/24/2022 5:17 AM CDT) athologist Signature Bilirubin, 5.1 (H) 0.0 - 0.3 01/24/2022 DTL Direct, S mg/dL 2:40 PM CDT Specimen Anatomical Collection Method Collection Time Receive d Time (Source) Location / / Volume Laterality Blood (Blood, 01/24/2022 5:17 AM 01/25/20 1:52 Venous) CDT PM CDT Darrick Santillan LAB BLOOD ADD-ON Performing Organization Address [facility] Phon e Number [facility] - [address] [place] [address] 55 05 [place] [address] Laboratories-[address] (ABNORMAL) Cystatin C with Estimated GFR [...] [facility] [address] [place], [place] [address] [facility] [place] [address] Laboratories-[facility] [address] [facility] Upper GI Endoscopy (01/23/2022 3:35 PM CDT) Specimen (Source) Anatomical Collection Method Collection Time Re ceived Time Location / / Volume Laterality 01/23/2022 3:35 PM CDT Impressions [facility] - 01/23/2022 4:08 PM CDT Post-op Diagnoses: [...] examination. ? - No specimens collected. Narrative [facility] - 01/23/2022 4:08 PM CDT Otto 6 [...] City/State/ZIP Code Phon e Number [place] [employer] [place] [employer] (ABNORMAL) Prothrombin Time (PT) (01/23/2022 10:58 AM CDT) [facility] Method Time Signature Prothrombin 29.9 (H) 9.4 - 12.5 01/23/2022 [facility] Time, P sec 11:56 AM CDT INR [...] Johnson.B.B.S. LAB BLOOD ADD-ON Performing Organization Address City/[facility] Phon e Number [facility] - [phone] [place] [address] (ABNORMAL) Prothrombin Time (PT) (01/23/2022 10:58 AM CDT) [facility] Method Time Signature Prothrombin 31.5 (H) 9.4 - 12.5 01/23/2022 [facility] Time, P sec 11:12 AM CDT INR 2.8 0.9 - 1.1 01/23/2022 [facility] 11:12 AM CDT Comment: ----ADDITIONAL INFORMATION---- Standard intensity warfarin therapeutic range: 2.0 to 3.0 ?? High intensity warfarin therapeutic rang e: 2.5 to 3.5 Specimen Anatomical Collection Method Collection Time Receive d Time (Source) Location / / Volume Laterality Blood (Blood, 01/23/2022 10:58 01/23/2022 Venous) AM CDT 11:05 AM CDT Anthony Johnson.B.B.S. LAB BLOOD ADD-ON Performing Organization Address City/[facility]/ZIP Code Phon e Number [facility] - [address] (ABNORMAL) Basic Metabolic Panel (01/23/2022 5:27 [...] Number [facility] - [address] [place] [address] [facility] [place] [address] [facility] 200 [facility] (ABNORMAL) CBC with Differential, Blood (01/23/2022 5:27 [...] [facility] - [address] [place], [place] [address] [facility] [place] [address] Laboratories-[facility] [address] (ABNORMAL) Ammonia (01/23/2022 5:27 AM CDT) athologist Signature Ammonia, P 109 (H) <=30 01/23/2022 DTL mcmol/L 6:11 AM CDT Specimen Anatomical Collection Method Collection Time Receive d Time (Source) Location / / Volume Laterality Blood (Blood, 01/23/2022 5:27 AM 01/24/20 5:41 Venous) CDT AM CDT Sree Little M.D. LAB BLOOD NON ADD-ON Performing Organization Address City/[facility] Phon e Number [facility] - [address] [place] [phone] 05 [facility] [place] [place] [address] [address] (ABNORMAL) Hemoglobin (01/22/2022 10:18 PM CDT) athologist [facility] Hemoglobin 7.5 (L) 11.6 - 15.0 01/22/2022 DTL g/dL 10:47 PM CDT Specimen Anatomical Collection Method Collection Time Receive d Time (Source) Location / / Volume Laterality Blood (Blood, 01/22/2022 10:18 01/22/2022 Venous) PM CDT 10:34 PM CDT Sree Little M.D. LAB BLOOD ADD-ON Performing Organization Address City/[facility] Phon e Number [facility] - [address] Transfuse Red Blood Cells : (01/22/2022 8:01 PM CDT) Sree Little M.D. BLOOD TRANSFUSION ORDERABLES Transfuse Red Blood Cells : , 1 Units (01/22/2022 8:01 PM CDT) Sree Little M.D. BLOOD TRANSFUSION ORDERABLES (ABNORMAL) Basic Metabolic Panel (01/22/2022 9:40 AM CDT) athologist [facility] Potassium, P 4.3 3.6 - 5.2 01/22/2022 [...] Number [facility] - [address] [place] [address] 05 [place] [address] [facility] 200 [facility] (ABNORMAL) CBC with Differential, Blood (01/22/2022 9:40 AM CDT) [facility] Method Time Signature Hemoglobin 6.0 (CL) [...] Number [facility] - [address] [place] [address] 05 [facility] [place] [address] [facility] 200 [facility] Type and Screen (with reflex Antibody ID) (01/22/2022 9:39 AM CDT) [facility] gist Method Time Signature ABORh B [...] [facility] - [address] [place], [place] [address] [facility] [place] [address] [facility] [address] [facility] (ABNORMAL) CBC with Differential, Blood (01/22/2022 9:39 AM CDT) [facility] Method Time Signature Hemoglobin 6.2 (L) [...] - 0.08 x10(9)/L 01/22/2022 11:17 AM CDT [facility] Spec[facility] Anatomical Collection Method Collection Time Receive d Time (Source) Location / / Volume Laterality Blood (Blood, 01/22/2022 9:39 AM 01/23/20 9:48 Venous) CDT AM CDT Sree Little M.D. LAB BLOOD ADD-ON Performing Organization Address City/[facility] Phon e Number [facility] - 200 [place], [place] 55 05 [place] [address] Laboratories-[address] (ABNORMAL) Prothrombin Time (PT) (01/22/2022 5:22 AM CDT) [facility] gist Method Time Signature Prothrombin 31.0 [...] M.D. LAB BLOOD ADD-ON Performing Organization Address City/[facility] Code Phon e Number [facility] - 200 [place], [place] [address] 05 [facility] [place] [address] Laboratories-[address] US Paracentesis with Imaging Guidance (01/21/2022 10:49 AM CDT) Anatomical Region Laterality Modality Abdomen, Ultrasound RST LOS, Ultrasound ARZ LOS, Procedure F LA N/A Ultrasound LOS, Abdominal FLA LOS, Procedural Specimen (Source) Anatomical Collection Method Collection Time Re ceived Time Location / / Volume Laterality 01/21/2022 10:27 AM CDT Impressions 01/21/2022 11:13 AM CDT Ultrasound-guided paracentesis. 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 POST-PROCEDURE DIAGNOSIS: Ascites. IMPRESSION: Ultrasound-guided paracentesis. MOBILE SERVICE RV TECHNICIAN Matthew Becerril M.D. IMG US PROCEDURES Protein, [...] ical findings. All other fluids refer to [email or web address] for further inter pretive information. This test has been modified from the glass cutter helper's instructions. Its perform ance characteristics were determined by [facility] in a manner consistent with CLIA require [...] [facility]ICAL [facility]ENTER [facility] - [address] [place], [place] [address] [facility] [place] [address] Laboratories-[facility] [address] Cell [...] characteri stics were determined by [facility] in a manner co nsistent with CLIA [...] Number [facility] - [address] [place] [address] 05 [place] [address] [facility] [address] [facility] Bacterial Culture, Aerobic + Susc (01/21/2022 10:00 AM CDT) [facility] gist Method Time Signature Bacterial No growth 01/26/2022 DTL Culture, after 5 7:48 AM CDT Aerobic + Susc days of incubation. Specimen Anatomical Collection Method Collection Time Receive d Time (Source) Location / / Volume Laterality Fluid 01/21/2022 10:00 01/21/2022 (Peritoneal AM CDT 11:52 AM CDT Fluid) Comment: Specimen Source Site: Fluid Narrative [facility] - [facility] - 01/26/2022 7:48 AM CDT Bacterial Culture: Received Bactec aerob ic and Bactec anaerobic bottles Matthew Becerril M.D. LAB MICROBIOLOGY - GENERAL O JOSE Performing Organization Address City/State/ZIP Code Phon e Number [facility] - 200 [place], [place] [address] [facility] [place] [address] Laboratories-[facility] 200 [facility] (ABNORMAL) Comprehensive Metabolic Panel (01/21/2022 7:25 AM [...] M.D. LAB BLOOD ADD-ON Performing Organization Address City/[facility] Code Phon e Number [facility] - [address] [place], [place] [address] [facility] [place] [address] [facility] 200 [facility] (ABNORMAL) Cystatin C with Estimated GFR (01/21/2022 [...] [facility] - [address] [place], [place] [address] [facility] [place] [address] [facility] 200 [facility] (ABNORMAL) CBC with Differential, Blood (01/21/2022 7:25 AM CDT) [facility] Method Time Signature Hemoglobin 6.7 (L) [...] M.D. LAB BLOOD ADD-ON Performing Organization Address City/[facility] Phon e Number [facility] - [address] [place], [place] 55 05 [place], [place] [id number] [place] [address] 200 [facility] (ABNORMAL) Iron and Total Iron-Binding Capacity (01/21/2022 [...] MEDICAL CENTER [facility] - [address] [place] [address] 05 [place] [address] [facility] [address] [facility] (ABNORMAL) Ferritin (01/21/2022 7:21 AM CDT) P athologist Signature Ferritin, S 564 (H) 11 - 307 01/22/2022 DTL mcg/L 5:18 PM CDT Specimen Anatomical Collection Method Collection Time Receive d Time (Source) Location / / Volume Laterality Blood (Blood, 01/21/2022 7:21 AM 01/23/20 4:23 Venous) CDT PM CDT Sree Little M.D. LAB BLOOD ADD-ON Performing Organization Address City/[facility]/ZIP Code Phon e Number [facility] - [address] [place], [place] 55 05 [place], [place] [id number] [place] [address] 200 [facility] (ABNORMAL) Hepatic Function Panel (01/21/2022 2:40 AM [...] 01/22/20 3:04 Venous) CDT AM CDT Haile Kieth M.D. LAB BLOOD ADD-ON Performing Organization Address City/[facility] Code Phon e Number [facility] - [address] Lipase (01/21/2022 2:40 AM CDT) P athologist Signature Lipase, S 26 13 - 60 U/L 01/21/2022 3:23 DTL AM CDT Specimen Anatomical Collection Method Collection Time Receive d Time (Source) Location / / Volume Laterality Blood (Blood, 01/21/2022 2:40 AM 01/22/20 3:05 Venous) CDT AM CDT Cody Knight M.D. LAB BLOOD ADD-ON Performing Organization Address City/[facility] Phon e Number [facility] - [address] [place] [address] [facility] CT Abdomen Pelvis without IV Contrast (01/20/2022 [...] Dipstick, POCT, Urine (01/20/2022 9:05 PM CDT) [facility] Signature Glucose, Negative Negative 01/20/2022 [facility] POCT, U mg/dL 9:06 PM CDT Ketone, POCT, Trace (A) Negative 01/20/2022 [facility] U mg/dL 9:06 PM CDT Specific 1.015 1.005 - 01/20/2022 [facility] [place], 1.030 9:06 PM CDT POCT, U Blood, [...] Code Phon e Number POC RST [facility] [address] [place] [address] OUTPATIENT LABS PCED [facility] [address] [facility] [address] (ABNORMAL) Dipstick, Urine (01/20/2022 8:57 PM CDT) [facility] Method Time Signature Hemoglobin, Negative Negative 01/20/2022 [...] M.D. LAB URINE ORDERABLES Performing Organization Address City/[facility] Phon e Number [facility] - 200 [place], [place] [address] [place] [address] [place] [address] pH, Urine (01/20/2022 8:57 PM CDT) P athologist Signature pH, U 5.5 4.5 - 8.0 01/20/2022 9:48 DTL PM CDT Specimen Anatomical Collection Method Collection Time Receive d Time (Source) Location / / Volume Laterality Urine 01/20/2022 8:57 PM 2 9:23 CDT PM CDT Cody Knight M.D. LAB URINE ORDERABLES Performing Organization Address City/[facility]/ZIP Code Phon e Number [facility] - [address] [place], [place] 55 05 [place], [place] [phone] [place] [address] Osmolality, Urine (01/20/2022 8:57 PM CDT) P athologist Signature Osmolality, U 401 150 - 1150 01/20/2022 DTL mOsm/kg 9:48 PM CDT Specimen Anatomical Collection Method Collection Time Receive d Time (Source) Location / / Volume Laterality Urine 01/20/2022 8:57 PM 2 9:23 CDT PM CDT Cody Knight M.D. LAB URINE ORDERABLES Performing Organization Address City/[facility]/ZIP Code Phon e Number [facility] - [address] [place], [place] [address] 05 [place] [address] Microscopic Automated (01/20/2022 8:57 PM CDT) [...] M.D. LAB URINE ORDERABLES Performing Organization Address City/[facility]/ZIP Code Phon e Number [facility] - [address] [place], [place] [address] [place] [address] [place] [address] Gram Stain, Urine (01/20/2022 8:57 PM CDT) [facility] Method Time Signature Source Urine, 01/20/2022 DTL Urine, 9:22 PM CDT Straight Catheter Gram Stain, U Negative Negative 01/20/2022 DTL 10:25 PM CDT Specimen Anatomical Collection Method Collection Time Receive d Time (Source) Location / / Volume Laterality Urine 01/20/2022 8:57 PM 2 9:22 CDT PM CDT Cody Knight M.D. LAB URINE ORDERABLES Performing Organization Address City/[facility]/ZIP Code Phon e Number [facility] - [address] [place], [place] [address] [place] [address] Bacterial Culture, Aerobic + Susc, Urine (01/20/2022 8:57 PM CDT) [facility] Method Time Signature Urine Culture No growth 01/22/2022 DT after 1 day 6:31 AM CDT of incubation. Specimen Anatomical Collection Method Collection Time Receive d Time (Source) Location / / Volume Laterality Urine (Urine, 01/20/2022 8:57 PM 01/21/20 Straight CDT 10:31 PM CDT Catheter) Comment: Specimen Source Site: Urine Cody Knight M.D. LAB MICROBIOLOGY - GENERAL O RDERABLES Performing Organization Address [facility] Phon e Number [facility] - [address] [place] [address] Urinalysis with Microscopic: Urine, Straight Catheter (01/20/2022 8:57 PM CDT) [facility] Method Time Signature Source Urine, 01/20/2022 [...] M.D. LAB URINE ORDERABLES Performing Organization Address City/[facility] Phon e Number [facility] - [address] [place] [phone] (ABNORMAL) Venous Blood Gas and Electrolytes [...] POCT ORDERABLES - DEVICE Performing Organization Address City/[facility]/ZIP Code Phon e Number POC RST [facility] INPATIENT [address] [place], [place] [address] [place] [address] [place] [facility] [address] Lactate, POCT (01/20/2022 [...] POCT ORDERABLES - DEVICE Performing Organization Address City/[facility]/ZIP [facility] [place]on [place] Number POC [facility] [address] [place] [address] [place] [address] [place] [facility] [address] hCG (Human Chorionic Gonadotropin), Quantitative, (01/20/2022 8:49 PM CDT) athologist Signature HCG, 0.5 <5 IU/L 01/20/2022 [facility] Quantitative, 9:19 PM CDT , P Specimen Anatomical Collection Method Collection Time Receive d Time (Source) Location / / Volume Laterality Blood (Blood, 01/20/2022 8:49 PM 01/21/20 9:01 Venous) CDT PM CDT Cody Knight M.D. LAB BLOOD ADD-ON Performing Organization Address City/[facility]/ZIP [facility] Phon e Number [facility] - [address] [place], [place] [address] [facility] [place] [address] [facility] [address] Lactate, POCT [...] - DEVICE Performing Organization Address [facility] Phon e Number [facility] - 200 [place], [place] 55 05 [place] [address] Laboratories-[address] Venous Blood Gas and Electrolytes CG8+, POCT (01/20/2022 8:49 PM CDT) Analysis Performed At [facility] VBG [employer] Lytes Collected DEFAULT 01/20/2022 SMLX CG8+, POCT, B 8:49 PM CDT Specimen Anatomical Collection Method Collection Time Receive d Time (Source) Location / / Volume Laterality Blood (Blood, 01/20/2022 8:49 PM 01/21/20 8:49 Venous) CDT PM CDT Cody Knight M.D. LAB POCT ORDERABLES - DEVICE Performing Organization Address City/[facility] Phon e Number [facility] - 200 [place], [place] 55 05 [place] [address] Laboratories-[address] (ABNORMAL) Basic Metabolic Panel (01/20/2022 8:49 PM CDT) Analysis Performed At [facility] Potassium, P 5.2 3.6 - 5.2 01/20/2022 [...] MEDICAL CENTER [facility] - [address] [place], [place] [address] [place] [address] Laboratories-[facility] [address] documented in [...] - Reason: Other)[id number] (Not Given - Provider: uJliana Larson RSumaNSuma - Reason: Patient/family refused)[id number] (Not [...] R.N.) 0900 (Giv en - Provider: Andrew ArroyoNSuma) 220 mg, oral, Daily with breakfast, Firs [...] as of this encounter Care Teams Electric Motor Fitter Relationship Specialty Start Date End Date Ana Red P.A.-C. PCP - General Internal Medicine 12/01/[address] [place] [phone] [facility] [place] [facility] 08/25/21 Ervin Schroeder MD Referring Provider Family Medicine 03/24/[address] [place] [phone] documented as of this encounter
--- OUTSIDE RECORDS SUMMARY | 2022-02-16 12:18 | XMS_ITS | Encounter Summary ---
:1990 Author Organization [facility] Address [address] [place] [address] Care Team Providers Name Role Phone Ana Red P.A.-C. Primary Care Provider [phone] Reason for Visit Reason Comments Rx Prior Authorization ASHLEY DENIED - LIDOCAINE 5% PAT CH Encounter Details Date Type Department Care Team Description 01/26/2022 Clinical Communication Pharmacy Prior Auth Christopher, Rx Prior RO Nicole A Authorization (ASHLEY [phone] DENIED - LIDOCA INE 5% PATCH) Social [...] you attend adventist or Patient refused 2021 restorationism services? Do you belong to any clubs or No 02/10/2022 organizations such as adventist groups, unions, fraBill-Ray Home Mobility or athletic groups, or school groups? 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 Thank you, The OPPA Team documented in this encounter Plan of Treatment Upcoming Encounters Date Type Specialty Care Team Description Telemedicine Transplant 2 Appointment Radiology Queenie Matthew 2 Tyrell Rodriguez M.D. [address] [place] [address] [phone] Appointment Gastroenterology demian Silver 2 Hepatology Yue Burciaga M.D. [address] [place] [phone] Virtual Visit Transplant LuisNew abdular 2 Tyrell Rodriguez M.D. [address] [place] [phone] Office Visit Gastroenterology and QueenieNewar 2 Hepatology Tyrell Rodriguez M.D. [address] [place] [phone] Appointment Radiology Matthew Jerome 2 YTyrell M.D. [address] [place] [address] [phone] Hospital Gastroenterology and QueenieNewar Cirrhos is Alcoholic (HCC) 2 Encounter Hepatology Tyrell Rodriguez M.D. [address] [place] [address] [phone] Anesthesia Event Gastroenterology and Rl, 2 Hepatology Ervin Burgos M.D. [address] [place] [phone] Surgery Gastroenterology and Mousa, Matthew ESOPHAG OGASTRODUODENOSCOPY 2 Hepatology Tyrell Rodriguez M.D. [address] [place] [phone] Scheduled Procedures Name Priority Associated Diagnoses Date/Time ESOPHAGOGASTRODUODENOSCOPY Cirrhosis Alc oholic (HCC) 03/20/2022 8:45 AM LEHR ATTENDANT Hypertension Portal (HCC) documented as of this encounter Visit Diagnoses Not on filedocumented in this encounter Additional Health Concerns Assessment Noted Time PHQ-9 Depression Total Score: 10 10/06/2021 5:00 PM CD T documented as of this encounter Care Teams Curing Oven Tender Relationship Specialty Start Date End Date Ana Red P.A.-C. PCP - General Internal Medicine 12/01/[address] [place] [address] [phone] [facility]- [place] lab 08/25/21 Ervin Schroeder MD Referring Provider Family Medicine 03/24/[address] [place] [address] documented as of this encounter
--- OUTSIDE RECORDS SUMMARY | 2022-02-16 12:18 | XMS_ITS | Encounter Summary ---
:1990 Author Organization [facility] Address [address] [place] [address] Care Team Providers Name Role Phone Ana Red P.A.-C. Primary Care Provider [phone] Reason for Visit Auth/Cert Specialty Diagnoses / Procedures Referred By Contact Refer red To Contact Diagnoses Cirrhosis Alcoholic (HCC) Failure Renal Acute (Acute Kidney Injury) (HCC) Ascites Alcohol Use Unspecified With Unspecified Alcohol Induced Disorder (HCC) Hepatic Failure Unspecified Without Coma (HCC) Procedures ED ADMIT Referral ID Status Reason Start Date Expiration Date Visits Requ ested Visits Authorized [id number] 1 1 Encounter Details Date Type Department Care Team Description 01/26/2022 Anesthesia Event Division of Gildardo Hickey APRN, LAUNDRY HOUSEKEEPER, DNAP [address] [place] [phone] Gastroenterology in Catia Green APRN, LAUNDRY HOUSEKEEPER, DNAP [address] [place] [phone] [place], [place] [address] [place] [phone] Anesthesia Record Procedure Summary Procedure Name Responsible Anesthesia Start Anesthesia Stop Time Anesthesiologist Time EGD Gildardo Hickey, FLATLOCK SEWING MACHINE OPERATOR, 01/26/22 1538 01/26/22 1645 (ESOPHAGEALGASTRODU LAUNDRY HOUSEKEEPER, DNAP ODENOSCOPY) Events Date Time Event Comment [...] h andoff to the receiving staff during [facility] ch we 1. Identified the patient [...] Right, Lower, Perri Mcintyre R, R.N. Nabila Corok E, Quadrant; paracentesis R.N. site; 4x4 gauze [...] 1759 by Right, Upper, Quadrant; Evy Dixon RNabila Carver, 02/03/22; 1759; resolved R.N. ETT Placement Date: 01/26/22; 01/26/22 1551 by 01/26 1635 by Placement Time: 1551 Gildardo Hickey Brown, St ephen E, (created via procedure FLATLOCK SEWING MACHINE OPERATOR, LAUNDRY HOUSEKEEPER, DNAP FLATLOCK SEWING MACHINE OPERATOR, CR NA, DNAP documentation); Mask Ventilation: Not [...] el, Anna C Catheter Size: 18 G; FLATLOCK SEWING MACHINE OPERATOR, LAUNDRY HOUSEKEEPER, DNAP Orientation: Right; Location: Wrist; Inserted by: [...] you attend scientology or Patient refused 2021 congregational services? Do [...] the highest technical, or vocational p [facility] degree you have received? 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 documented as of this encounter OR Notes Anesthesia Postprocedure Evaluation - Gildardo Hickey APRN, CRNA, DNAShanita - 01/26/2022 4:45 PM CDT Patient: Catia Carias Procedure Summary Date: 01/26/22 Room / Location: Division of Gastroenterology in [place], [place] Anesthesia Start: 153 Anesthesia Stop: 1644 Procedure: EGD (ESOPHAGEALGASTRODUODENOSCOPY) Diagnosis: Scheduled Providers: Gildardo Hickey APRN, SHANNON, GABRIELP Responsible Provider: Gildardo Hickey APRN, CRNA, MINA Anesthesia Type: general ASA Status: 3 Anesthesia [...] EGD (ESOPHAGEALGASTRODUODENOSCOPY) Location: Division of Gastroenterology in [place], [place] Pertinent components of the patient's history [...] with patient /legal guardian or through an relationship management lead. Risks/Benefits/Alternatives of Blood transfusion discussed with patient [...] Transplant 2 Appointment Radiology LuisMatthew abdul 2 Y MSumaB.B.SSuma, Lilian [address] [place] [phone] Appointment Gastroenterology demian Silver, 2 Hepatology Yue Burciaga M.D. [address] [place] [phone] Virtual Visit Transplant Matthew Jerome 2 YJoshuaB.B.SLilian Moise [address] [place] [phone] Office Visit Gastroenterology and Matthew Jerome 2 Hepatology Joshua RodriguezB.B.SLilian Moise [address] [place] [phone] Appointment Radiology Matthew Jerome 2 Y M.B.B.SSuma, Lilian [address] [place] [phone] Hospital Gastroenterology and Matthew Jerome Cirrhos is Alcoholic (HCC) 2 Encounter Hepatology Jennifer M.B.B.SLilian Moise [address] [place] [phone] Anesthesia Event Gastroenterology and Rl, 2 Hepatology Ervin uBrgos M.D. [address] [place] [address] [phone] Surgery Gastroenterology and Mousa, Matthew ESOPHAG OGASTRODUODENOSCOPY 2 Hepatology Tyrell Rodriguez M.D. [address] [place] [phone] Scheduled Procedures Name Priority Associated Diagnoses Date/Time ESOPHAGOGASTRODUODENOSCOPY Cirrhosis Alc oholic (HCC) 03/20/2022 8:45 AM REDUCING SYSTEM OPERATOR Hypertension Portal (HCC) documented as of [...] documented as of this encounter Care Teams Tenant Coordinator Relationship Specialty Start Date End Date Ana Red P.A.-C. PCP - General Internal Medicine 12/01/[address] [place] [phone] [facility]- [place] lab 08/25/21 Ervin Schroeder MD Referring Provider Family Medicine 03/24/[address] [place] [address] documented as of this encounter
--- OUTSIDE RECORDS SUMMARY | 2022-02-16 12:18 | XMS_ITS | Encounter Summary ---
:1990 Author Organization [facility] Address [address] [place] [address] Care Team Providers Name Role Phone Ana Red P.A.-C. Primary Care Provider [phone] Reason for Visit Reason Comments Pre-visit Testing Orders Encounter Details Date Type Department Care Team Description 01/28/2022 Clinical RST Yue Hung Pre-visit Testing Communication [address] [facility] Lilian Burciaga Orders [place], [place] [address] [place] [phone] [place] [phone] Social History Tobacco Use Types Packs/Day Years [...] you attend gnosticist or Patient refused 2021 jainism services? 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 [address] [place] [phone] Virtual Visit Transplant Matthew Jerome 2 YJoshuaB.B.Lilian [place] [address] [place] [phone] Office Visit Gastroenterology and [facility] 2 Hepatology Tyrell Rodriguez M.D. [address] [place] [phone] Appointment Radiology [facility] Matthew 2 YTyrell M.D. [address] [place] [phone] Gastroenterology and [facility] Cirrhos is Alcoholic (HCC) 2 Encounter Hepatology Tyrell Rodriguez M.D. [address] [place] [phone] Anesthesia Event Gastroenterology and Rl, 2 Hepatology Ervin Burgos M.D. [address] [place] [address] [phone] Surgery Gastroenterology and [facility] ESOPHAG OGASTRODUODENOSCOPY 2 Hepatology Tyrell Rodriguez M.D. [address] [place] [phone] Scheduled Procedures Name Priority Associated Diagnoses Date/Time ESOPHAGOGASTRODUODENOSCOPY Cirrhosis Alc oholic (HCC) 03/20/2022 8:45 AM BEATER OPERATOR Hypertension Portal (HCC) documented as of this encounter Visit Diagnoses Not on filedocumented in this encounter Additional Health Concerns Assessment Noted Time PHQ-9 Depression Total Score: 10 10/06/2021 5:00 PM CD T documented as of this encounter Care Teams Aquatic Centre Manager Relationship Specialty Start Date End Date Ana Red P.A.-C. PCP - General Internal Medicine 12/01/[address] [place] [address] ADI Chua [phone] [facility]- [place] lab 08/25/21 Ervin Schroeder MD Referring Provider Family Medicine 03/24/[address] [place], [place] [phone] documented as of this encounter
--- OUTSIDE RECORDS SUMMARY | 2022-02-16 12:18 | XMS_ITS | Encounter Summary ---
:1990 Author Organization [facility] Address [address] [place] [address] Care Team Providers Name Role Phone Ana Red P.A.-C. Primary Care Provider Reason for Visit Reason Comments Form Review [facility] med rec onciliation Encounter Details Date Type Department Care Team Description 01/22/2022 Clinical Communication Department of [facility], Form Review [facility] Ana, (Health system Home Medicine in P.A.-C. Care [facility] [address] reconciliation) [place], [place] 300 [facility] [phone] [place] [phone] (Work) [phone] Social History Tobacco Use Types Packs/Day Years [...] you attend islam or Patient refused 2021 church services? Do you belong to any clubs or No 02/10/2022 organizations such as islam groups, unions, fraLiveStub or athletic groups, or school groups? How [...] to Ana Red PA-C for electronic review/signature. FRENCH TUTOR: [facility] PHONE NUMBER: [phone] INFO REQUESTED: medication reconciliation INSTRUCTIONS: Fax form to [phone] documented in this encounter Plan of Treatment Upcoming Encounters Date Type Specialty Care Team Description Telemedicine Transplant 2 Appointment Radiology LuisNew abdular 2 YTyrell M.D. [address] [place] [address] [phone] Appointment Gastroenterology demian Silver, 2 Hepatology Yue Burciaga M.D. [address] [place] [phone] Virtual Visit Transplant LuisMatthew abdul 2 YTyrell M.D. [address] [place] [phone] Office Visit Gastroenterology and LuisMatthew abdul 2 Hepatology Tyrell Rodriguez M.D. [address] [place] [phone] Appointment Radiology LuisMatthew abdul 2 YJoshuaBSumaBLilian Bedolla [address] [place] [address] [phone] Hospital Gastroenterology and Matthew Jerome Cirrhos is Alcoholic (HCC) 2 Encounter Hepatology Tyrell Rodriguez M.D. [address] [place] [address] [phone] Anesthesia Event Gastroenterology and Rl, 2 Hepatology Ervin Burgos M.D. [address] [place] [address] [phone] Surgery Gastroenterology and Mousa, Matthew ESOPHAG OGASTRODUODENOSCOPY 2 Hepatology Tyrell Rodriguez M.D. [address] [place] [phone] Scheduled Procedures Name Priority Associated Diagnoses Date/Time ESOPHAGOGASTRODUODENOSCOPY Cirrhosis Alc oholic (HCC) 03/20/2022 8:45 AM CREDIT CARD ASSOCIATE Hypertension Portal (HCC) documented as of this encounter Visit Diagnoses Not on filedocumented in this encounter Additional Health Concerns Assessment Noted Time PHQ-9 Depression Total Score: 10 10/06/2021 5:00 PM CD T documented as of this encounter Care Teams Micropaleontologist Relationship Specialty Start Date End Date Ana Red P.A.-C. PCP - General Internal Medicine 12/01/[address] [place] [phone] [facility]- [place] lab 08/25/21 Ervin Schroeder MD Referring Provider Family Medicine 03/24/[address] [place] [address] documented as of this encounter
--- OUTSIDE RECORDS SUMMARY | 2022-02-16 12:18 | XMS_ITS | Encounter Summary ---
:1990 Author Organization [facility] Address [address] [place] [address] Care Team Providers Name Role Phone Ana Red P.A.-C. Primary Care Provider [phone] Reason for Visit Transplant (Routine) - Authorized Specialty Diagnoses / Procedures Referred By Contact Refer red To Contact Transplant Surgery / Matthew Jerome [facility] Transplant Elizabeth.BSumaBLilian Bedolla [address] [place] [phone] Referral ID Status Reason Start Date Expiration Date Visits V isits Requested Authorized [id number] Authorized 10/27/2021 10/27/2022 1 1 Encounter Details Date Type Department Care Team Description 01/28/2022 Virtual Visit Matthew Valenzuela Can celed (Patient: [facility] for MSumaBSumaBLilian Bedolla Hospitalized / ill) Transplantation and [address] [place] [address] in [place], [place] [phone] [address] [facility] [phone] [place] [phone] (Work) [phone] Social History Tobacco Use Types Packs/Day Years [...] you attend zoroastrianism or Patient refused 2021 denominational services? Do [...] the highest level of school Associate degree: [employer], 07/16/2021 you have completed or the highest technical, or vocational p rogram degree you have received? 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 [address] [place] [phone] Appointment Gastroenterology and Adrianne, 2 Hepatology Yue Burciaga M.D. [address] [place] [phone] Virtual Visit Transplant Matthew Jerome 2 Tyrell Rodriguez M.D. [address] [place] [phone] Office Visit Gastroenterology and Matthew Jerome 2 Hepatology Tyrell Rodriguez M.D. [address] [place] [phone] Appointment Radiology Matthew Jerome 2 Tyrell Rodriguez M.D. [address] [place] [phone] Hospital Gastroenterology and Matthew Jerome Cirrhos is Alcoholic (HCC) 2 Encounter Hepatology Tyrell Rodriguez M.D. [address] [place] [phone] Anesthesia Event Gastroenterology and Rl, 2 Hepatology Ervin Burgos M.D. [address] [place] [phone] Surgery Gastroenterology and LuischantellMatthew ESOPHAG OGASTRODUODENOSCOPY 2 Hepatology Joshua RodriguezBSumaBLilian Bedolla [address] [place] [phone] Scheduled Procedures Name Priority Associated Diagnoses Date/Time ESOPHAGOGASTRODUODENOSCOPY Cirrhosis Alc oholic (HCC) 03/20/2022 8:45 AM SHIP HARBOR PILOT Hypertension Portal (HCC) documented as of this encounter Visit Diagnoses Not on filedocumented in this encounter Additional Health Concerns Assessment Noted Time PHQ-9 Depression Total Score: 10 10/06/2021 5:00 PM CD T documented as of this encounter Care Teams Cracking Unit Operator Relationship Specialty Start Date End Date Ana Red P.A.-C. PCP - General Internal Medicine 12/01/[address] [place] [phone] [facility]- [place] lab 08/25/21 Ervin Schroeder MD Referring Provider Family Medicine 03/24/[address] [place] [address] documented as of this encounter
--- OUTSIDE RECORDS SUMMARY | 2022-02-16 12:19 | XMS_ITS | Encounter Summary ---
:1990 Author Organization [facility] Address [address] [place] [address] Care Team Providers Name Role Phone Ana Red P.A.-C. Primary Care Provider [phone] Encounter Details Date Type Department Care Team Description 01/20/2022 Orders Only Pharmacy Prior Auth Lina Raphael [phone] Social History Tobacco Use Types Packs/Day Years [...] you attend restorationism or Patient refused 2021 methodist services? 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 [address] [place] [phone] Virtual Visit Transplant Matthew Jerome 2 Tyrell Rodriguez M.D. [facility] [place] [phone] Office Visit Gastroenterology and Matthew Jerome 2 Hepatology Tyrell Rodriguez M.D. [address] [place] [address] [phone] Appointment Radiology Queenie Matthew 2 YTyrell M.D. [address] [place] [address] [phone] Hospital Gastroenterology and [facility] Cirrhos is Alcoholic (HCC) 2 Encounter Hepatology Tyrell Rodriguez M.D. [address] [place] [phone] Anesthesia Event Gastroenterology and [facility], 2 Hepatology Ervin Burgos M.D. [address] [place] [address] [phone] Surgery Gastroenterology and [facility] ESOPHAG OGASTRODUODENOSCOPY 2 Hepatology Tyrell Rodriguez, Lilian [address] [place] [phone] Scheduled Procedures Name Priority Associated Diagnoses Date/Time ESOPHAGOGASTRODUODENOSCOPY Cirrhosis Alc oholic (HCC) 03/20/2022 8:45 AM RESPIRATORY THERAPY ASSISTANT Hypertension Portal (HCC) documented as of this encounter Visit Diagnoses Not on filedocumented in this encounter Additional Health Concerns Assessment Noted Time PHQ-9 Depression Total Score: 10 10/06/2021 5:00 PM CD T documented as of this encounter Care Teams Head Of Mathematics Relationship Specialty Start Date End Date Ana Red P.A.-C. PCP - General Internal Medicine 12/01/[address] [place] [address] [place] [phone] [facility]- [place] lab 08/25/21 Ervin Schroeder MD Referring Provider Family Medicine 03/24/21 [address] [place] [address] documented as of this encounter
--- OUTSIDE RECORDS SUMMARY | 2022-02-16 12:19 | XMS_ITS | Encounter Summary ---
:1990 Author Organization [facility] Address [address] [place] [address] Care Team Providers Name Role Phone Ana Red P.A.-C. Primary Care Provider [phone] Encounter Details Date Type Department Care Team Description 01/16/2022 Clinical Communication Division of [facility] in Lilian Schaefer [place], [place] [address] [facility] [address] [place] [phone] Social History Tobacco Use Types Packs/Day Years [...] you attend tenriism or Patient refused 2021 roman catholic services? Do you belong to any clubs or No 02/10/2022 organizations such as tenriism groups, unions, fraSoftLayer or athletic groups, or school groups? 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 [address] [place] [phone] Virtual Visit Transplant Matthew Jerome 2 YTyrell M.D. [address] [place] [phone] Office Visit Gastroenterology and [facility] 2 Hepatology Tyrell Rodriguez M.D. [address] [place] [phone] Appointment Radiology [facility] Matthew 2 YTyrell M.D. [address] [place] [phone] Hospital Gastroenterology and [facility] Cirrhos is Alcoholic (HCC) 2 Encounter Hepatology Tyrell Rodriguez M.D. [address] [place] [phone] Anesthesia Event Gastroenterology and Rl, 2 Hepatology Ervin Burgos M.D. [address] [place] [address] [phone] Surgery Gastroenterology and [facility] ESOPHAG OGASTRODUODENOSCOPY 2 Hepatology Tyrell Rodriguez M.D. [address] [place] [phone] Scheduled Procedures Name Priority Associated Diagnoses Date/Time ESOPHAGOGASTRODUODENOSCOPY Cirrhosis Alc oholic (HCC) 03/20/2022 8:45 AM OPHTHALMIC SURGICAL ASSISTANT Hypertension Portal (HCC) documented as of this encounter Visit Diagnoses Not on filedocumented in this encounter Additional Health Concerns Assessment Noted Time PHQ-9 Depression Total Score: 10 10/06/2021 5:00 PM CD T documented as of this encounter Care Teams Hospital Orderly Relationship Specialty Start Date End Date Ana Red P.A.-C. PCP - General Internal Medicine 12/01/[address] [place] [address] ADI Chua [phone] [facility]- [place] lab 08/25/21 Ervin Schroeder MD Referring Provider Family Medicine 03/24/[address] [place], [place] [phone] documented as of this encounter
--- OUTSIDE RECORDS SUMMARY | 2022-02-16 12:19 | XMS_ITS | Encounter Summary ---
:1990 Author Organization [facility] Address [address] [place] [address] Care Team Providers Name Role Phone Ana Red P.A.-C. Primary Care Provider [phone] Encounter Details Date Type Department Care Team Description 01/19/2022 Clinical Communication Department of Debra Red [facility] Farida Perez Medicine in [address] [address] [place], [place] [phone] (Work) [phone] Social History Tobacco Use Types Packs/Day Years [...] you attend bahai or Patient refused 2021 jain services? Do [...] or the highest technical, or vocational p Eveoram degree you have received? 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 [phone] Is it okay to leave a detailed message? yes What is the patient's request? Can she go back up to 100 mg of Lasix? Medication name/dose: furosemide (LASIX) 20 mg tablet Recent changes/new symptoms/side effects: new water retention in legs What pharmacy are you using today? [facility] Additional comments (if any): Last week patient was in [place] and they cut her furosemide (LASIX)20 mg [...] symptoms or side effects, please route to TRAVEL RN pool of prescribing provider - if new symptoms or having side effects, please transfer to off-site triage ([phone]) documented in this encounter Plan of Treatment Upcoming Encounters Date Type Specialty Care Team Description Telemedicine Transplant 2 Appointment Radiology Matthew Jerome 2 YTyrell M.D. [address] [place] [address] Appointment Gastroenterology demian Silver, 2 Hepatology Yue Burciaga M.D. 200 [place] [phone] Virtual Visit Transplant Matthew Jerome 2 Tyrell Rodriguez M.D. [address] [place] [phone] Office Visit Gastroenterology and Matthew Jerome 2 Hepatology Tyrell Rodriguez M.D. [address] [place] [phone] Appointment Radiology LuisMatthew abdul 2 Tyrell Rodriguez M.D. [address] [place] [phone] Hospital Gastroenterology and Matthew Jerome Cirrhos is Alcoholic (HCC) 2 Encounter Hepatology Tyrell Rodriguez M.D. [address] [place] [phone] Anesthesia Event Gastroenterology and Rl, 2 Hepatology Ervin Burgos M.D. [address] [place] [phone] Surgery Gastroenterology and Matthew Jerome ESOPHAG OGASTRODUODENOSCOPY 2 Hepatology Tyrell Rodriguez M.D. [address] [place] [phone] Scheduled Procedures Name Priority Associated Diagnoses Date/Time ESOPHAGOGASTRODUODENOSCOPY Cirrhosis Alc oholic (HCC) 03/20/2022 8:45 AM VEGETABLE HARVEST MACHINE OPERATOR Hypertension Portal (HCC) documented as of this encounter Visit Diagnoses Not on filedocumented in this encounter Additional Health Concerns Assessment Noted Time PHQ-9 Depression Total Score: 10 10/06/2021 5:00 PM CD T documented as of this encounter Care Teams Grommet Machine Operator Relationship Specialty Start Date End Date Ana Red P.A.-C. PCP - General Internal Medicine 12/01/[address] [place] [phone] [facility]- [facility] 08/25/21 Ervin Schroeder MD Referring Provider Family Medicine 03/24/[address] [place] [address] documented as of this encounter
--- OUTSIDE RECORDS SUMMARY | 2022-02-16 12:19 | XMS_ITS | Encounter Summary ---
:[address] [facility] Address [address] [place] [address] Care Team Providers Name Role Phone Ana Red P.A.-C. Primary Care Provider [phone] Reason for Visit Reason Comments Appointment January follow up Encounter Details Date Type Department Care Team Description 01/14/2022 Clinical Ramirez Huerta, [facility] Communication Center for Adeline Gannon (January laci Wilson, Ph.D. up) Clinical Regeneration [address] [place] [address] in [facility] [phone] [place] [address] [place], [place] (Work) [address] [phone] Social History Tobacco Use Types Packs/Day Years [...] you attend jain or Patient refused 2021 yazidi services? Do you belong to any clubs or No 02/10/2022 organizations such as jain groups, unions, fraGROUNDBOOTH or athletic groups, or school groups? 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 documented in this encounter Plan of Treatment Upcoming Encounters Date Type Specialty Care Team Description Telemedicine Transplant 2 Appointment Radiology Matthew Jerome 2 YTyrell, M.Jeri [address] [place] [phone] Appointment Gastroenterology and Adrianne, 2 Hepatology Yue Burciaga M.D. [address] [place] [address] Virtual Visit Transplant Matthew Jerome 2 Tyrell Rodriguez M.D. [address] [place] [phone] Office Visit Gastroenterology and Matthew Jerome 2 Hepatology Tyrell Rodriguez M.D. [address] [place] [phone] Appointment Radiology LuisMatthew abdul 2 Tyrell Rodriguez M.D. [address] [place] [phone] Hospital Gastroenterology and Matthew Jerome Cirrhos is Alcoholic (HCC) 2 Encounter Hepatology Tyrell Rodriguez M.D. [address] [place] [phone] Anesthesia Event Gastroenterology and Rl, 2 Hepatology Ervin Burgos M.D. [address] [place] [phone] Surgery Gastroenterology and Queenie Matthew ESOPHAG OGASTRODUODENOSCOPY 2 Hepatology Vik RodriguezBLilian Bedolla [address] [place] [phone] Scheduled Procedures Name Priority Associated Diagnoses Date/Time ESOPHAGOGASTRODUODENOSCOPY Cirrhosis Alc oholic (HCC) 03/20/2022 8:45 AM MENTAL HEALTH ASSISTANT Hypertension Portal (HCC) documented as of this encounter Visit Diagnoses Not on filedocumented in this encounter Additional Health Concerns Assessment Noted Time PHQ-9 Depression Total Score: 10 10/06/2021 5:00 PM CD T documented as of this encounter Care Teams Director Of Restaurant Operations Relationship Specialty Start Date End Date Ana Red P.A.-C. PCP - General Internal Medicine 12/01/[address] [place] [phone] [facility]- [place] lab 08/25/21 Ervin Schroeder MD Referring Provider Family Medicine 03/24/[address] [place] [phone] documented as of this encounter
--- OUTSIDE RECORDS SUMMARY | 2022-02-16 12:19 | XMS_ITS | Encounter Summary ---
:1990 Author Organization [facility] Address [address] [place] [address] Care Team Providers Name Role Phone Ana Red P.A.-C. Primary Care Provider [phone] Reason for Visit Reason Comments Phone Contact Appointment LABs Encounter Details Date Type Department Care Team Description 01/16/2022 Clinical Ramirez Barajas, Phone Contact; Communication Center for Mitchell Rowland (Jagdeep Izaguirre) Transplantation and Lilian, Ph.D. Clinical [facility] [address] [place] [address] [address] [facility] [phone] Social History Tobacco Use Types Packs/Day Years [...] you attend judaism or Patient refused 2021 buddhist services? 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 OM sent to confirm appts. Telephone Encounter [...] labs. She will be completing some in [place] on 01/20. Could we get orders for [place] for the labs that she needs to complete? PASS: Please link new orders to 01/20 labs and add urine as close as possible. Thank you in advance documented in this encounter Plan of Treatment Upcoming Encounters Date Type Specialty Care Team Description Telemedicine Transplant 2 Appointment Radiology Matthew Jerome 2 YTyrell M.D. [address] [place] [address] Appointment Gastroenterology and Adrianne, 2 Hepatology Yue Burciaga M.D. [address] [place] [address] Virtual Visit Transplant Matthew Jerome 2 YTyrell M.D. [address] [place] [phone] Office Visit Gastroenterology and Matthew Jerome 2 Hepatology Tyrell Rodriguez M.D. [address] [place] [phone] Appointment Radiology Matthew Jerome 2 Tyrell Rodriguez M.D. [address] [place] [phone] Hospital Gastroenterology and Matthew Jerome Cirrhos is Alcoholic (HCC) 2 Encounter Hepatology Tyrell Rodriguez M.D. [address] [place] [phone] Anesthesia Event Gastroenterology and Rl, 2 Hepatology Ervin Burgos M.D. [address] [place] [phone] Surgery Gastroenterology and Matthew Jerome ESOPHAG OGASTRODUODENOSCOPY 2 Hepatology Tyrell Rodriguez M.D. [address] [place] [phone] Scheduled Procedures Name Priority Associated Diagnoses Date/Time ESOPHAGOGASTRODUODENOSCOPY Cirrhosis Alc oholic (HCC) 03/20/2022 8:45 AM ELASTIC ASSEMBLER Hypertension Portal (HCC) documented as of this encounter Visit Diagnoses Not on filedocumented in this encounter Additional Health Concerns Assessment Noted Time PHQ-9 Depression Total Score: 10 10/06/2021 5:00 PM CD T documented as of this encounter Care Teams Respite Care Provider Relationship Specialty Start Date End Date Ana Red P.A.-C. PCP - General Internal Medicine 12/01/[address] [place] [address] BAYADI WRIGHT [phone] [facility]- [facility] 08/25/21 Ervin Schroeder MD Referring Provider Family Medicine 03/24/[address] [place] [address] ADI Mejía [address] documented as of this encounter
--- OUTSIDE RECORDS SUMMARY | 2022-02-16 12:19 | XMS_ITS | Encounter Summary ---
:1990 Author Organization [facility] Address [address] [place] [address] Care Team Providers Name Role Phone Ana Red P.A.-C. Primary Care Provider [phone] Reason for Visit Reason Comments Med Refill Encounter Details Date Type Department Care Team Description 01/20/2022 Refill Department of [facility] Ana Red , Med Refill Internal Medicine in [place], [place] 300 [facility] 300 [facility] [address] [place] [address] [phone] Social History Tobacco Use Types Packs/Day Years [...] you attend faith or Patient refused 2021 samaritan services? 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 [address] [place] [phone] Virtual Visit Transplant Matthew Jerome 2 YKishore.B.SLilian Moise [address] [place] [phone] Office Visit Gastroenterology and [facility] 2 Hepatology Tyrell Rodriguez M.D. [address] [place] [phone] Appointment Radiology [facility] 2 Tryell Rodriguez M.D. [address] [place] [phone] [facility] Gastroenterology and [facility] Cirrhos is Alcoholic (HCC) 2 Encounter Hepatology Tyrell Rodriguez M.D. [address] [place] [phone] Anesthesia Event Gastroenterology and Rl, 2 Hepatology Ervin Burgos M.D. [address] [place] [phone] Surgery Gastroenterology and [facility] ESOPHAG OGASTRODUODENOSCOPY 2 Hepatology Tyrell Rodriguez M.D. [address] [place] [phone] Scheduled Procedures Name Priority Associated Diagnoses Date/Time ESOPHAGOGASTRODUODENOSCOPY Cirrhosis Alc oholic (HCC) 03/20/2022 8:45 AM EQUIPMENT MAINTENANCE ENGINEER Hypertension Portal (HCC) documented as of this encounter Visit Diagnoses Not on filedocumented in this encounter Additional Health Concerns Assessment Noted Time PHQ-9 Depression Total Score: 10 10/06/2021 5:00 PM CD T documented as of this encounter Care Teams Licensed Clinical Social Worker Relationship Specialty Start Date End Date Ana Red P.A.-C. PCP - General Internal Medicine 12/01/[address] [place] [address] ADI Chua [phone] [facility]- [place] lab 08/25/21 Ervin Schroeder MD Referring Provider Family Medicine 03/24/[address] [place] [address] [place] [address] documented as of this encounter
--- OUTSIDE RECORDS SUMMARY | 2022-02-16 12:19 | XMS_ITS | Encounter Summary ---
:1990 Author Organization [facility] Address [address] [place] [address] Care Team Providers Name Role Phone Ana Red P.A.-C. Primary Care Provider [phone] Encounter Details Date Type Department Care Team Description 01/19/2022 Orders Only [facility] ([facility], for Transplantation and [place], RSumaNSuma, Clinical Regeneration in [place], [place] [address] [place] [address] Social History Tobacco Use Types Packs/Day [...] you attend hoahaoism or Patient refused 2021 anabaptist services? 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 [address] [place] [phone] Virtual Visit Transplant Matthew Jerome 2 YJoshuaB.B.Lilian [place] [address] [place] [phone] Office Visit Gastroenterology and [facility] 2 Hepatology Tyrell Rodriguez M.D. [address] [place] [phone] Appointment Radiology [facility] Matthew 2 YTyrell M.D. [address] [place] [phone] Hospital Gastroenterology and [facility] Cirrhos is Alcoholic (HCC) 2 Encounter Hepatology Tyrell Rodriguez M.D. [address] [place] [phone] Anesthesia Event Gastroenterology and Rl, 2 Hepatology Ervin Burgos M.D. [address] [place] [phone] Surgery Gastroenterology and [facility] ESOPHAG OGASTRODUODENOSCOPY 2 Hepatology Tyrell Rodriguez M.D. [address] [place] [phone] Scheduled Procedures Name Priority Associated Diagnoses Date/Time ESOPHAGOGASTRODUODENOSCOPY Cirrhosis Alc oholic (HCC) 03/20/2022 8:45 AM OUT OF TOWN COLLECTION CLERK Hypertension Portal (HCC) documented as of this encounter Visit Diagnoses Not on filedocumented in this encounter Additional Health Concerns Assessment Noted Time PHQ-9 Depression Total Score: 10 10/06/2021 5:00 PM CD T documented as of this encounter Care Teams Fiber Machine Tender Relationship Specialty Start Date End Date Ana Red P.A.-C. PCP - General Internal Medicine 12/01/[address] [place] [address] ADI Chua [phone] [facility]- [place] lab 08/25/21 Ervin Schroeder MD Referring Provider Family Medicine 03/24/[address] [place], [place] [phone] documented as of this encounter
--- OUTSIDE RECORDS SUMMARY | 2022-02-16 12:19 | XMS_ITS | Encounter Summary ---
:1990 Author Organization [facility] Address [address] [place] [address] Care Team Providers Name Role Phone Ana Red P.A.-C. Primary Care Provider [phone] Encounter Details Date Type Department Care Team Description 01/20/2022 Clinical Communication Department of Felicita Spicer Gastroenterology in [place], [place] [phone] 10[address] [facility] (Work) [place] [address] Social History Tobacco Use Types Packs/Day [...] you attend catholic or Patient refused 2021 religion services? Do you belong to any clubs or No 02/10/2022 organizations such as catholic groups, unions, fraUrban Renewable H2 or athletic groups, or school groups? 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 - 01/20/2022 4:09 PM CDT Battery Plate Remover called patient and discussed the recommendation to report to the ED for management of acute kidney injury. Patient was also advised to hold her diuretics per direction from Dr. Jeorme in separatemessage (see below). Patient verbalized understanding of the information provided and states she will [facility] ED as this is slightly [...] Radiology Matthew Jerome 2, M.B.B.S., M.D. [address] [place] [phone] Appointment Gastroenterology and Adrianne, 2 Hepatology Yue Burciaga M.D. [address] [place] [phone] Virtual Visit Transplant Matthew Jerome 2, M.B.B.S., M.D. [address] [place] [phone] Office Visit Gastroenterology and Matthew Jerome 2 Hepatology Tyrell Rodriguez M.D. [address] [place] [phone] Appointment Radiology Matthew Jerome 2 YTyrell M.D. [address] [place] [phone] Hospital Gastroenterology and [facility], Matthew Cirrhos is Alcoholic (HCC) 2 Encounter Hepatology Tyrell Rodriguez, Lilian [address] [place] [phone] Anesthesia Event Gastroenterology and Rl, 2 Hepatology Ervin Burgos M.D. [address] [place] [phone] Surgery Gastroenterology and [facility], [place] ESOPHAG OGASTRODUODENOSCOPY 2 Hepatology Tyrell Rodriguez M.D. [address] [place] [phone] Scheduled Procedures Name Priority Associated Diagnoses Date/Time ESOPHAGOGASTRODUODENOSCOPY Cirrhosis Alc oholic (HCC) 03/20/2022 8:45 AM COMMUNICATION STUDIES PROFESSOR Hypertension Portal (HCC) documented as of this encounter Visit Diagnoses Not on filedocumented in this encounter Additional Health Concerns Assessment Noted Time PHQ-9 Depression Total Score: 10 10/06/2021 5:00 PM CD T documented as of this encounter Care Teams Planning Consultant Relationship Specialty Start Date End Date Ana Red P.A.-C. PCP - General Internal Medicine 12/01/[address] [place] [address] [place] [phone] [facility]- [place] lab 08/25/21 Ervin Schroeder MD Referring Provider Family Medicine 03/24/[address] [place] [address] [place] [address] documented as of this encounter
--- OUTSIDE RECORDS SUMMARY | 2022-02-16 12:19 | XMS_ITS | Encounter Summary ---
:1990 Author Organization [facility] Address [address] [place] [address] Care Team Providers Name Role Phone Ana Red P.A.-C. Primary Care Provider [phone] Reason for Visit Reason Comments Post Hospital Follow-up Encounter Details Date Type Department Care Team Description 01/15/2022 Clinical Communication Department of [facility] Internal Ciara Johnson, RSumaNSuma Follow-up Medicine in [address] [place] [phone] 300 [facility] [phone] [place], [place] (Work) [phone] Social History Tobacco Use [...] you attend shinto or Patient refused 2021 uatsdin services? 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 - 01/15/2022 1:13 PM CDT SUBJECTIVE CHIEF [...] Medical Care Coordination Program and needs the [facility] call to be completed. Patient was dismissed from the hospital on 01/14/22 at 1748. documented in this encounter Plan of Treatment Upcoming Encounters Date Type Specialty Care Team Description Telemedicine Transplant 2 Appointment Radiology Matthew Jerome 2 YJoshuaB.B.SSuma, Lilian [address] [place] [phone] Appointment Gastroenterology and Adrianne, 2 Hepatology Yue Burciaga M.D. [address] [place] [phone] Virtual Visit Transplant LuisNew abdular 2 Y M.B.B.SSuma, Lilian [address] [place] [phone] Office Visit Gastroenterology and [place] 2 Hepatology Jennifer M.B.B.SLilian Moise [address] [place] [phone] Appointment Radiology Matthew Jerome 2 Y MSumaB.B.SSuma, Lilian [address] [place] [phone] Hospital Gastroenterology and [place], Matthew Cirrhos is Alcoholic (HCC) 2 Encounter Hepatology Tyrell Rodriguez, Lilian [address] [place] [phone] Anesthesia Event Gastroenterology and Rl, 2 Hepatology Ervin Burgos M.D. [address] [place] [phone] Surgery Gastroenterology and [place], Matthew ESOPHAG OGASTRODUODENOSCOPY 2 Hepatology Tyrell Rodriguez, Lilian [address] [place] [phone] Scheduled Procedures Name Priority Associated Diagnoses Date/Time ESOPHAGOGASTRODUODENOSCOPY Cirrhosis Alc oholic (HCC) 03/20/2022 8:45 AM STATION ENGINEER MAIN LINE Hypertension Portal (HCC) documented as of this encounter Visit Diagnoses Not on filedocumented in this encounter Additional Health Concerns Assessment Noted Time PHQ-9 Depression Total Score: 10 10/06/2021 5:00 PM CD T documented as of this encounter Care Teams Vegetable Preparer Relationship Specialty Start Date End Date Ana Red P.A.-C. PCP - General Internal Medicine 12/01/[address] [place] [phone] [facility]- [place] lab 08/25/21 Ervin Schroeder MD Referring Provider Family Medicine 03/24/[address] [place] [phone] documented as of this encounter
--- OUTSIDE RECORDS SUMMARY | 2022-02-16 12:19 | XMS_ITS | Encounter Summary ---
:[address] [facility] Address [address] [place] [address] Care Team Providers Name Role Phone Ana Red PSumaASuma-C. Primary Care Provider [phone] Encounter Details Date Type Department Care Team Description 01/19/2022 Orders Only Department of [facility] Ana Red , Internal Medicine in [place] 300 [facility] 300 [facility] [place] [phone] (Wo rk) Social History Tobacco [...] you attend anabaptist or Patient refused 2021 sikh services? 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 [address] [place] [phone] Virtual Visit Transplant Matthew Jerome 2 Y, JoshuaB.B.Kath, Lilian [address] [place] [address] [phone] Office Visit Gastroenterology and [facility] 2 Hepatology Tyrell Rodriguez M.D. [address] [place] [address] [phone] Appointment Radiology [facility] Matthew 2 Tyrell Rodriguez M.D. [address] [place] [address] [phone] Hospital Gastroenterology and [facility] Cirrhos is Alcoholic (HCC) 2 Encounter Hepatology Tyrell Rodriguez M.D. [address] [place] [address] [phone] Anesthesia Event Gastroenterology and Rl, 2 Hepatology Ervin Burgos M.D. [address] [place] [address] [phone] Surgery Gastroenterology and [facility] ESOPHAG OGASTRODUODENOSCOPY 2 Hepatology Tyrell Rodriguez M.D. [address] [place] [address] [phone] Scheduled Procedures Name Priority Associated Diagnoses Date/Time ESOPHAGOGASTRODUODENOSCOPY Cirrhosis Alc oholic (HCC) 03/20/2022 8:45 AM VOICE NETWORK ENGINEER Hypertension Portal (HCC) documented as of this encounter Visit Diagnoses Not on filedocumented in this encounter Additional Health Concerns Assessment Noted Time PHQ-9 Depression Total Score: 10 10/06/2021 5:00 PM CD T documented as of this encounter Care Teams Licensed Chemical Spray Technician Relationship Specialty Start Date End Date Ana Red P.A.-C. PCP - General Internal Medicine 12/01/[address] [place] [address] ADI Chua [phone] [facility]- [facility] 08/25/21 Ervin Schroeder MD Referring Provider Family Medicine 03/24/[address] [place] [address] documented as of this encounter
--- OUTSIDE RECORDS SUMMARY | 2022-02-16 12:19 | XMS_ITS | Encounter Summary ---
:1990 Author Organization [facility] Address [address] [place] [address] Care Team Providers Name Role Phone Ana Red P.A.-C. Primary Care Provider [phone] Encounter Details Date Type Department Care Team Description 01/17/2022 Clinical Communication Division of Mike, Gastroenterology in Lil[place] Mueller, [place], [place] Ph.D. [address] [email or web address] [address] [place] [address] [place], [place] [phone] Social History Tobacco Use Types Packs/Day Years [...] you attend quaker or Patient refused 2021 alevism services? 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 - 01/17/2022 6:56 PM CDT Paged by gas cutting machine operator regarding nose bleed for the [...] Transplant 2 Appointment Radiology Luischantell Matthew 2 Joshua RodriguezB.BGraeme, Lilian [address] [place] [address] [phone] Appointment Gastroenterology demian Silver 2 Hepatology Yue Burciaga M.D. [address] [place] [phone] Virtual Visit Transplant LuisNew abdular 2 Jennifer M.B.BGraeme, Lilian [address] [place] [phone] Office Visit Gastroenterology and LuisNew abdular 2 Hepatology Joshua RodriguezB.B.Lilian [place] [address] [place] [phone] Appointment Radiology LuisNew abdular 2 YElizabeth.B.B.SSuma, Lilian [address] [place] [address] [phone] Hospital Gastroenterology and LuisMatthew abdul Cirrhos is Alcoholic (HCC) 2 Encounter Hepatology Jennifer M.B.B.SSuma, Lilian [address] [place] [phone] Anesthesia Event Gastroenterology and Rl 2 Hepatology Ervin Burgos M.D. [address] [place] [phone] Surgery Gastroenterology and Mousa, Matthew ESOPHAG OGASTRODUODENOSCOPY 2 Hepatology YTyrell M.D. [address] [place] [phone] Scheduled Procedures Name Priority Associated Diagnoses Date/Time ESOPHAGOGASTRODUODENOSCOPY Cirrhosis Alc oholic (HCC) 03/20/2022 8:45 AM METER REPAIRER Hypertension Portal (HCC) documented as of this encounter Visit Diagnoses Not on filedocumented in this encounter Additional Health Concerns Assessment Noted Time PHQ-9 Depression Total Score: 10 10/06/2021 5:00 PM CD T documented as of this encounter Care Teams Radar Systems Engineer Relationship Specialty Start Date End Date Ana Red P.A.-C. PCP - General Internal Medicine 12/01/[address] [place] [phone] [facility]- [place] [facility] 08/25/21 Ervin Schroeder MD Referring Provider Family Medicine 03/24/[address] [place] [address] documented as of this encounter
--- OUTSIDE RECORDS SUMMARY | 2022-02-16 12:19 | XMS_ITS | Encounter Summary ---
:1990 Author Organization [facility] Address [address] [place] [address] Care Team Providers Name Role Phone Ana Rde P.A.-C. Primary Care Provider [phone] Encounter Details Date Type Department Care Team Description 01/20/2022 Hospital Encounter Department of D[facility] Campbelli c Failure Laboratory Medicine Lilian Schaefer Unspecified Without in [place], [address] [facility] Com[facility] (HCC) [place], [place] 300 [facility] [phone] [place] [phone] (Work) [phone] Social History Tobacco Use Types Packs/Day Years [...] you attend yazidi or Patient refused 2021 jehovah's witness services? 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 [address] [place] [phone] Virtual Visit Transplant Matthew Jerome 2 Y M.B.BLilian Bedolla [address] [place] [phone] Office Visit Gastroenterology and Matthew Jerome 2 Hepatology Joshua RodriguezB.BLilian Bedolla [address] [place] [address] [phone] Appointment Radiology Matthew Jerome 2 Y, MSumaB.B.Lilian [place] [address] [place] [phone] Hospital Gastroenterology and [facility] Cirrhos is Alcoholic (HCC) 2 Encounter Hepatology Tyrell Rodriguez M.D. [address] [place] [phone] Anesthesia Event Gastroenterology and Rl, 2 Hepatology Ervin Burgos M.D. [address] [place] [phone] Surgery Gastroenterology and [facility] ESOPHAG OGASTRODUODENOSCOPY 2 Hepatology Tyrell Rodriguez M.D. [address] [place] [phone] Scheduled Procedures Name Priority Associated Diagnoses Date/Time ESOPHAGOGASTRODUODENOSCOPY Cirrhosis Alc oholic (HCC) 03/20/2022 8:45 AM VOTING MACHINE MECHANIC Hypertension Portal (HCC) documented as of [...] with Differential, Blood (01/20/2022 12:07 PM CDT) [facility] Method Time Signature Hemoglobin 7.4 (L) [...] Organization Address City/State/ZIP Code Phon e Number [facility]- [address] [place] [address] [facility] [address] [place] [address] System in [place] [address] (ABNORMAL) Comprehensive Metabolic Panel [...] Organization Address City/State/ZIP Code Phon e Number [facility]- [address] [place] [address] [facility] ADI Donald [address] System in [place] [address] documented in this encounter Visit Diagnoses Diagnosis Cirrhosis Alcoholic (HCC) Hypertension Portal (HCC) Hepatic Failure 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 PCP - General Internal Medicine 12/01/[address] [place] [address] [place] [phone] [facility]- [place] [facility] 08/25/21 Ervin Schroeder MD Referring Provider Family Medicine 03/24/[address] [place] [address] [place] [address] documented as of this encounter
--- OUTSIDE RECORDS SUMMARY | 2022-02-16 12:19 | XMS_ITS | Encounter Summary ---
:1990 Author Organization [facility] Address [address] [place] [address] Care Team Providers Name Role Phone Ana Red P.A.-C. Primary Care Provider [phone] Reason for Referral Physical Therapy (Routine) - Authorized Specialty Diagnoses / Procedures Referred By Contact Refer red To Contact Diagnoses Pain Low Back Unspecified Ana Red P.A.-C. 300 [facility] [place] [phone] Referral ID Status Reason Start Expiration Visits Visits Date Date Requested Authorized [id number] Authorized Service not 01/20/2022 01/20/2023 1 1 available in [facility] Reason for Visit Reason Comments Hepatic Encephalopathy [...] Expiration Date Visits Requ ested Visits Authorized [id number] Closed 01/13/2022 01/13/2023 1 1 Encounter Details Date Type Department Care Team Description 01/20/2022 Office Visit Department of [facility], Pain Low Back Unspecified (Primary Dx); Community Internal Frances PerezASuma Bedoya Cirrhosis Alcoholic (HCC); Medicine in [place] [address] [facility]; [place], [place] Long QT Syndrome; [facility] [address] [phone] Rhinitis Allergic; [place], [place] [phone] Alcohol Use Un specified With Unspecified Alcohol Induced Disorder ([facility]) [phone] (Work) [phone] Social History Tobacco Use Types Packs/Day Years [...] you attend druze or Patient refused 2021 methodist services? 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 Unresponsiveness in ER. [...] post hospital follow-up. She was admitted to [facility] on 01/09/2022 and was discharged on [...] Long QT Syndrome Patient recently discharged from [facility] due to hepatic encephalopathy. She feels [...] week. She has a EGD scheduled in [place] for early January to assess for esophageal varices. #4 Pain Low Back Unspecified We put through a physical therapy order to [facility] today for back pain. I did refill flexeril for patient to use once daily. She is also using lidocaine patches [id number] and I did send these in for her via prescription but they are going through a prior authorization process. - External referral PT (non-[place]) #5 Rhinitis Allergic She is wondering if she can use an [id number]-ridpidx nasal spray for allergies. I recommended flonase. [...] Her home nurse is Misbah Crook with [facility]. Ana Red P.A.-C. Update: Notified of MOSHE on labs today by hospital provider. Patient has been contacted to report to the ED for albumin infusion and to hold her diuretics. documented in this encounter Plan of Treatment Upcoming Encounters Date Type Specialty Care Team Description Telemedicine Transplant 2 Appointment Radiology Matthew Jerome 2, M.B.B.S., M.D. [address] [place] [phone] Appointment GastroenterMorenita, 2 Hepatology Yue Burciaga M.D. [address] [place] [phone] Virtual Visit Transplant Matthew Jerome 2 YTyrell M.D. [address] [place] [phone] Office Visit Gastroenterology and Matthew Jerome 2 Hepatology Tyrell Rodriguez M.D. [address] [place] [phone] Appointment Radiology LuisMatthew abdul 2 YTyrell M.D. [address] [place] [phone] Hospital Gastroenterology and Matthew Jerome Cirrhos is Alcoholic (HCC) 2 Encounter Hepatology Tyrell Rodriguez M.D. [address] [place] [phone] Anesthesia Event Gastroenterology and Rl, 2 Hepatology Ervin Burgos M.D. [address] [place] [address] [phone] Surgery Gastroenterology and Matthew Jerome ESOPHAG OGASTRODUODENOSCOPY 2 Hepatology Tyrell Rodriguez M.D. [address] [place] [address] [phone] Scheduled Procedures Name Priority Associated Diagnoses Date/Time ESOPHAGOGASTRODUODENOSCOPY Cirrhosis Alc oholic (HCC) 03/20/2022 8:45 AM SUPERVISOR CONDITIONING YARD Hypertension Portal (HCC) documented as of this [...] as of this encounter Care Teams Nurse Monitoring Relationship Specialty Start Date End Date Ana Red P.A.-C. PCP - General Internal Medicine 12/01/[address] [place] [phone] [facility]- [place] [facility] 08/25/21 Ervin Schroeder MD Referring Provider Family Medicine 03/24/[address] [place] [phone] documented as of this encounter
--- OUTSIDE RECORDS SUMMARY | 2022-02-16 12:19 | XMS_ITS | Encounter Summary ---
:1990 Author Organization [facility] Address [address] [place] [address] Care Team Providers Name Role Phone Ana Red P.A.-C. Primary Care Provider [phone] Reason for Visit Reason Comments Phone Contact Encounter Details Date Type Department Care Team Description 01/15/2022 Clinical Ramirez Womack, Phone Contact Communication Center for [facility] and Clinical Regeneration in [facility] pedro [address] [place] [phone] Social History Tobacco Use Types Packs/Day Years [...] 02/10/2022 organizations such as congregational groups, unions, fraCloudacc or athletic groups, or school groups? 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 Pt oked confirming by OM. Telephone Encounter - [place] - 01/15/2022 1:46 PM CDT Pre- Patient returning a call to schedule her appts. She can be reached at [phone]. documented in this encounter Plan of Treatment Upcoming Encounters Date Type Specialty Care Team Description Telemedicine Transplant 2 Appointment Radiology Matthew Jerome 2 Y, M.B.B.S., Lilian [address] [place] [phone] Appointment Gastroenterology and Adrianne, 2 Hepatology Yue Burciaga M.D. [address] [place] [phone] Virtual Visit Transplant Matthew Jerome 2 Tyrell Rodriguez, Lilian [address] [place] [phone] Office Visit Gastroenterology and [place] Matthew 2 Hepatology Tyrell Rodriguez M.D. [address] [place] [phone] Appointment Radiology Matthew Jerome 2 Tyrell Rodriguez M.D. [address] [place] [phone] Hospital Gastroenterology and [facility] Cirrhos is Alcoholic (HCC) 2 Encounter Hepatology Tyrell Rodriguez M.D. [address] [place] [phone] Anesthesia Event Gastroenterology and Rl, 2 Hepatology Ervin Burgos M.D. [address] [place] [phone] Surgery Gastroenterology and [place]ach[place]ell Matthew ESOPHAG OGASTRODUODENOSCOPY 2 Hepatology Vik RodriguezBGraeme, Lilian [address] [place] [phone] Scheduled Procedures Name Priority Associated Diagnoses Date/Time ESOPHAGOGASTRODUODENOSCOPY Cirrhosis Alc oholic (HCC) 03/20/2022 8:45 AM POWER PLANT MECHANIC Hypertension Portal (HCC) documented as of this encounter Visit Diagnoses Not on filedocumented in this encounter Additional Health Concerns Assessment Noted Time PHQ-9 Depression Total Score: 10 10/06/2021 5:00 PM CD T documented as of this encounter Care Teams Duplicating Machine Servicer Relationship Specialty Start Date End Date Ana Red P.A.-C. PCP - General Internal Medicine 12/01/[address] [place] [phone] [facility]- [place] [facility] 08/25/21 Ervin Schroeder MD Referring Provider Family Medicine 03/24/[address] [place] [address] documented as of this encounter
--- OUTSIDE RECORDS SUMMARY | 2022-02-16 12:20 | XMS_ITS | Encounter Summary ---
:1990 Author Organization [facility] Address [address] [place] [address] Care Team Providers Name Role Phone Ana Red P.A.-C. Primary Care Provider [phone] Reason for Referral Physical Therapy (Routine) - Authorized Specialty Diagnoses / Procedures Referred By Contact Refer red To Contact Diagnoses Pain Low Back Unspecified Colleen Crowell M.D., M.P.H. [address] [place] [address] [phone] Referral ID Status Reason Start Expiration Visits Visits Date Date Requested Authorized [id number] Authorized Patient 01/14/2022 01/14/2023 1 1 Preference Medication Prior Authorization - Closed Specialty Diagnoses / Procedures Referred By Contact Refer red To Contact Colleen Crowell M.D ., M.P.H. [address] [place] [address] [phone] Referral ID Status Reason Start Date Expiration Date Visits Requ ested Visits Authorized [id number] Closed 1 1 Outpatient (Routine) - Authorized Specialty Diagnoses / Procedures Referred By Contact Refer red To Contact Diagnoses Pain Low Back Unspecified Colleen Crowell M.D., M.P.H. [address] [place] [phone] Referral ID Status Reason Start Date Expiration Date Visits V isits Requested Authorized [id number] Authorized 01/14/2022 01/14/2023 1 1 Reason for Visit Reason Comments Abdominal Pain Auth/Cert Specialty Diagnoses / Procedures Referred By Contact Refer red To Contact Diagnoses Hepatic Encephalopathy Without Coma (HCC) Procedures ETU Referral ID Status Reason Start Date Expiration Date Visits Requ ested Visits Authorized [id number] 1 1 Encounter Details Date Type Department Care Team Description 01/09/2022 - [facility] [place] [facility] [place] JoseLudwin win Jr., M.D. [address] [place] [address] [phone] Hepatic Encephalopathy Without Coma (HCC ) (Primary Dx); [facility] [address] [place] [phone] Deficiency Vitamin A; [facility], Sree Bach M.D. [address] [place] [phone] Cirrhosis Alcoholic (HCC); [facility], Pain Low B ack Unspecified; Fifth Floor Decline Functional Status [R 53.81 (ICD-10-CM)] [address] [place] [address] [phone] Social History Tobacco Use Types Packs/Day Years [...] you attend caodaism or Patient refused 2021 yazidi services? 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 Primary Team: [facility] Gastroenterology B Primary Care Providers: Ana Red P.A.-C. (General) [address] [place] [phone] Primary Care Provider Primary Care Provider Other [...] management per Radhames Neumann, Ph.D., L.P. in [facility] (Pain Rehabilitation), 10/06/2021: - virtual [...] AM CDT You were discharged from the [facility] Gastroenterology B Service. Please identify [...] bed and don with modified independence using button cutting machine operator. Discussed use of button cutting machine operator for donning/doffing pants and socks. Offered to [...] 07/03 Months Reversed: 07/03 30 seconds: 06/05 Iqxs-Iblj-Nfcb: 0 Go/No-Go: 07/03 Address Recall: 07/03 Total Score: 25/30 (Administered 01/14/2022) RECOMMENDATIONS: Discharge Therapy Needs - OT: Ongoing skilled occupational therapy Level of Care Needed - OT: Assistance with toilet/shower transfers, Assistance with dressing, Assistance with showering/bathing, Assistance with meal preparation, Assistance with personal financial advisor, Assistance with transportation, Assistance with housekeeping, Assistance with shopping Discharge information provided on 01/14/2022 Contact information: [facility], [address], AttachmentsThe following attachments cannot be sent through Care Everywhere. Acetaminophen (By mouth) (Polish)Ciprofloxacin (By mouth) (Polish)Lidocaine Patch (On the skin) (Polish)Prochlorperazine (By mouth) (Polish) Cholecalciferol (By mouth) (Polish)documented in this encounter Medications at Time of [...] / PLAN Ms. Carias is hospitalized on [facility] Gastroenterology B for evaluation and [...] will discuss SBP ppx with her outpatient chassis mechanic # acute blood loss anemia, improved - [...] that this occurred while on prophylactic SMX/TMP. T Reese Reyes M.D. - 01/11/2022 10:10 AM [...] Status: Pharmacy Complete Set By: Sera Antonio PharmSumaDSuma, R.Ph. at 01/11/2022 8:12 AM Status Comment [...] evaluation. She was previously admitted to the [facility] GI service during the month of [...] any GI bleeding. Patient presented to the [facility] ED with worsening abdominal distension over [...] started to seem confused, wanting to go tothe grocery store, suddenly awakening every hour saying [...] 31 y.o. female who is hospitalized on [facility] Gastroenterology B for evaluation and [...] Maker: AriadnaLobito Disposition: Home Kit Bellamy, MS4 [facility] Cornelia Jurado M.D. - 01/09/2022 12:08 PM CDT [facility] Gastroenterology B Admission Note CHIEF COMPLAINT Abdominal [...] her last alcoholic drink was in M 2020. She quit marijuana, gabapentin, and oxycodone [...] / PLAN Ms. Carias is hospitalized on [facility] Gastroenterology B for evaluation and [...] AMS, concern for safe swallow. May need ACCOUNTANT HELPER eval - monitor renal function and UOP [...] Hospital Inpatient Evaluation/Treatment SUBJECTIVE Patient's Name: Catia Moriah Carias Referring/Attending Provider: Sree Bach M.D. Medical Diagnosis: Hepatic Encephalopathy Without Coma (HCC) [K72.90] Reason for Referral: Occupational Therapy Evaluation and Treatment General Acute Onset Date: 01/09/22 Payor: [facility] [place] / Plan: [facility] [place] RESTRICTED PLAN / Product [...] Pretransplant Recipient Evaluation Exam Deficiency Vitamin A Penitentiary Use Of Opiate Analgesic Nicotine Dependence Cigarettes [...] sweeping, mopping, etc. due to back pain. [facility] assists with setting up weekly pillbox. 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 Discussed use of button cutting machine operator for donning/doffing pants and socks. Offered to [...] 07/03 Months Reversed: 07/03 30 seconds: 06/05 Tnqh-Ooxa-Ubyk: 0 Go/No-Go: 07/03 Address Recall: 07/03 Total Score: 25/30 [facility] Inpatient Short Form: Putting on and [...] Standardized Score: 44.27 Interpretation: Clinicians answer the [facility] Inpatient Short Form based on observed [...] showering/bathing, Assistance with meal preparation, Assistance with personal financial advisor, Assistance with transportation, Assistance with housekeeping, Assistance [...] Total Treatment Time (min): 39 min Yue Chrisitanson M.S., O.T. Cooper Menendez P.T., D.P.T. - 01/14/2022 9:06 AM CDT Physical Therapy Inpatient Evaluation/Treatment SUBJECTIVE Patient's Name: Catia Carias Referring/Attending Provider: Sree Bach M.D. Medical Diagnosis: Hepatic Encephalopathy Without Coma (HCC) [K72.90] Reason for Referral: PT Evaluate and Treat PT evaluate and treat Onset Date: 01/09/22 Payor: [facility] [place] / Plan[place] [facility] [place] / Product [...] Pretransplant Recipient Evaluation Exam Deficiency Vitamin A Penitentiary Use Of Opiate Analgesic Nicotine Dependence Cigarettes [...] pain started Prior Mobility/Functional Transfers Level of Nolan: Needs assistance Previous Transfer/Mobility Assistance Comments: Relied [...] needs met and questions answered. Outcome Measures [facility] Inpatient Short Form: -[facility] Basic Mobility (V.2) How much help from [...] 3-5 steps with a railing?: A Little -[facility] Basic Mobility (V.2) Raw Score: 22 -[facility] Basic Mobility (V.2) Standardized Score: 47.4 Interpretation: Clinicians answer the -[facility] Inpatient Short Form based on observed patient [...] Time (min): 50 min Andreas Menendez P.T., D.P.Jt. Evon Sinha L.G.S.W., M.S.W. - 01/12/2022 11:01 [...] Assessment completed on 09/30/2021 by Joel Tan [facility]. Patient indicates that this information remains [...] to reach out to their transplant social services director, Joel Tan, for care coordination, as needed. Patient shares that she has a large and strong support systemthat is able to provide informal support as needed. Patient shares that she has a nurse through [facility] who comes out one time a week to set up her medication in a weekly pill box. Patient provided verbal consent for social work to reconnect [facility] services with [facility]. Patient shares no concerns with [...] and reviewing role of an inpatient social services director, engaging in rapport building, empathetic listening, active [...] Patient plans to return home with prior [facility] and family supports. Family to provide transportation at dismissal. Social work will continue to follow and provide psychosocial support and assistance with dismissal planning, as needed. Patient to discharge with home health care. Home Medical Care - Admitted Since 01/09/2022 Service Provider Selected Services Address Phone Fax Patient Preferred [facility] [address] [place] [phone] -- Contact: intake/admissions NURSING: - Complete documentation in the Discharge Navigator including Nursing Report Info and Facility/NextLevel of Care Info - Call report and arrange for the patient???s first visit. - Send required packet of dismissal information with patient, including After Visit Summary and advance directive. PRIMARY SERVICE: - Please provide a non-[facility] home health order for resumption of previous [...] was given AVS and will be leaving [facility] with significant other. She had no further [...] 01/09/22 0900 -- -- 01/09/22 0900 01/09/22 09 36.7 ??C (!) 115 114/69 97 % [...] floor. ED Course as of 01/09/22 1314 Fri Jan 09, 202221 Urinalysis with Microscopic: Urine, Straight Catheter(!): Source Urine, Urine, Straight Catheter Color, U Trinity(!) Clarity Clear 1029 Dipstick, Urine(!): Hemoglobin, QL, [...] Radiology Matthew Jerome 2, M.B.B.S., M.D. [address] [place] [phone] Appointment Gastroenterology and Adrianne, 2 Hepatology Yue Burciaga M.D. [address] [place] [phone] Virtual Visit Transplant Matthew Jerome 2, M.B.B.S., M.D. [address] [place] [address] [phone] Office Visit Gastroenterdina and Matthew Jerome 2 Hepatology Tyrell Rodriguez M.D. [address] [place] [address] [phone] Appointment Radiology [facility] 2 Tyrell Rodriguez M.D. [address] [place] [phone] Hospital Gastroenterology and [facility] Cirrhos is Alcoholic (HCC) 2 Encounter Hepatology Tyrell Rodriguez M.D. [address] [place] [phone] Anesthesia Event Gastroenterology and Rl, 2 Hepatology Ervin Burgos M.D. [address] [place] [address] [phone] Surgery Gastroenterology and [facility] ESOPHAG OGASTRODUODENOSCOPY 2 Hepatology Tyrell Rodriguez M.D. 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 CLERK Hypertension Portal (HCC) Scheduled Referrals Name [...] Signature Ventricular Rate 81 BPM MUSE ECG/Min TX Interval 146 ms MUSE QRSD Interval 90 ms MUSE QT Interval 408 ms MUSE QTC Interval 473 ms MUSE P Byron 6 degrees MUSE R Byron 55 degrees MUSE T Wave Byron 26 degrees MUSE Specimen Anatomical Collection Method [...] Number [facility] - [address] [place] [address] [address] [facility] [place] [address] [facility] 200 [facility] (ABNORMAL) Comprehensive Metabolic Panel (01/13/2022 [...] [facility] - 200 [place], [place] [address] [facility] [place] [place] [address] [facility] [address] [facility] (ABNORMAL) CBC without Differential (01/13/2022 8:42 PM CDT) [facility] Method Time Signature Hemoglobin 7.1 [...] [facility] [address] [place], [place] [address] [facility] [place] [address] [facility] [address] [place] Paracentesis with Imaging Guidance (01/13/2022 3:02 [...] Differential, Body Fluid (01/13/2022 2:42 PM CDT) [facility] Method Time Signature Fluid Type Peritoneal- [...] characteri stics were determined by [facility] in a manner co nsistent with [...] Number [facility] - [address] [place] [address] 05 [place] [address] [facility] [address] [facility] (ABNORMAL) CBC without Differential (01/13/2022 7:09 AM CDT) [facility] gist Method [...] Number [facility] - [address] [place] [address] [facility] [place] [address] [facility] 200 [facility] (ABNORMAL) Comprehensive Metabolic Panel (01/13/2022 [...] [facility] [address] [place], [place] [address] [facility] [place] [place] [address] [facility] [address] (ABNORMAL) Hemoglobin (01/12/2022 4:17 AM CDT) P athologist Signature Hemoglobin 7.7 (L) 11.6 - 15.0 01/12/2022 DTL g/dL 4:50 AM CDT Specimen Anatomical Collection Method Collection Time Receive d Time (Source) Location / / Volume Laterality Blood (Blood, 01/12/2022 4:17 AM 01/13/20 22 4:42 Venous) CDT AM CDT Cornelia Jurado M.D. LAB BLOOD ADD-ON Performing Organization Address City/[facility] Phon e Number [facility] - [address] [place] [address] (ABNORMAL) Basic Metabolic Panel (01/12/2022 4:17 [...] LAB BLOOD ADD-ON Performing Organization Address City/State/[facility] Phon e Number [facility] - [address] [place], [place] [address] [facility] [place] [address] (ABNORMAL) Hemoglobin (01/11/2022 4:35 PM CDT) athologist [...] [facility] - [address] [place], [place] [address] [facility] [place] [address] [facility] 200 [facility] (ABNORMAL) Comprehensive Metabolic Panel (01/11/2022 8:36 AM [...] M.D. LAB BLOOD ADD-ON Performing Organization Address City/[facility]/ZIP Code Phon e Number [facility] - [address] [place] [address] [address] [facility] (ABNORMAL) Hemoglobin (01/11/2022 6:44 AM CDT) P [...] MEDICAL [facility] - [address] [place] [address] (ABNORMAL) Hemoglobin (01/10/2022 10:11 PM CDT) athologist Signature Hemoglobin 7.9 (L) 11.6 - 15.0 01/10/2022 DTL g/dL 10:30 PM CDT Specimen Anatomical Collection Method Collection Time Receive d Time (Source) Location / / Volume Laterality Blood (Blood, 01/10/2022 10:11 01/10/2022 Venous) PM CDT 10:24 PM CDT Colleen Crowell M.D., M.P.H. LAB BLOOD ADD-ON Performing Organization Address City/State/[facility] Code Phon e Number [facility] - [address] [place], [place] [address] [facility] [place] [address] [facility] 200 [facility] (ABNORMAL) Comprehensive Metabolic Panel (01/10/2022 [...] Number [facility] - [address] [place] [address] [facility] [place] [place] [address] [facility] 200 [facility] (ABNORMAL) CBC without Differential (01/10/2022 10:11 PM CDT) [facility] Method Time Signature Hemoglobin 7.7 (L) [...] M.P.H. LAB BLOOD ADD-ON Performing Organization Address City/[facility] Phon e Number [facility] - [address] [place], [place] [address] [facility] [place] [place] [address] (ABNORMAL) Hemoglobin (01/10/2022 8:27 PM CDT) athologist Signature Hemoglobin 7.7 (L) 11.6 - 15.0 01/10/2022 DTL g/dL 8:47 PM CDT Specimen Anatomical Collection Method Collection Time Receive d Time (Source) Location / / Volume Laterality Blood (Blood, 01/10/2022 8:27 PM 01/11/20 22 8:41 Venous) CDT PM CDT Colleen Crowell M.D., M.P.H. LAB BLOOD ADD-ON Performing Organization Address City/[facility] Phon e Number [facility] - [address] [place], [place] [address] [place] [address] Transfuse Red Blood Cells : (01/10/2022 [...] M.D. LAB URINE ORDERABLES Performing Organization Address City/[facility] Phon e Number [address] (ABNORMAL) Hemoglobin (01/10/2022 12:22 PM CDT) P athologist Signature Hemoglobin 6.4 (L) 11.6 - 15.0 01/10/2022 [facility] g/dL 1:29 PM CDT Specimen Anatomical Collection Method Collection Time Receive d Time (Source) Location / / Volume Laterality Blood (Blood, 01/10/2022 12:22 01/10/2022 Venous) PM CDT 12:46 PM CDT Cornelia Jurado M.D. LAB BLOOD ADD-ON Performing Organization Address City/[facility]/ZIP [facility] [place] [place] Phon e Number [address] [place] Liver with Liver Doppler (01/10/2022 [...] atio <1.0. All other fluids refer to www.[employer] for further inter pretive information. This test has been modified from the man ufacturer's instructions. Its performance characteri stics were determined by [facility] in a manner consistent wi CLIA [...] [facility] - [address] [place], [place] [address] [facility] [place] [place] [address] [facility] [address] [facility] Albumin, Body Fluid (01/10/2022 9:51 AM CDT) [...] process. ?? All other fluids refer to www.[employer] for further interpretive information. This t est has been modified from the diesel stationary engineer's instruc tions. Its performance characteristics were determi foreign by [facility] in a manner consistent with CLIA [...] AND STOOLS O JOSE Performing Organization Address [facility] Phon e Number [facility] - [address] [address] [address] Lactate Dehydrogenase (LD), Body Fluid (01/10/2022 [...] clinical findings. All other fluids refer to www.[employer]com for further interpretive information. This test has been modified from the man ufacturer's instructions. Its performance characteristics were det ermined by [facility] in a manner consistent with CLIA [...] AND STOOLS O JOSE Performing Organization Address [facility] Phon e Number [facility] - 200 [place] [address] [place] [address] Laboratories-[address] Protein, Total, Body Fluid (01/10/2022 9:51 [...] ical findings. All other fluids refer to www.[employer] for further inter pretive information. This test has been modified from the diesel stationary engineer's instructions. Its perform ance characteristics were determined by [facility] in a manner consistent with CLIA [...] [facility] - [address] [place], [place] [address] [facility] [place] [address] [facility] [address] [facility] Glucose, Body Fluid (01/10/2022 9:51 AM CDT) [...] characteri stics were determined by [facility] in a manner co nsistent with [...] AND STOOLS O JOSE Performing Organization Address City/[facility] Code Phon e Number [facility] - [address] Bacterial Culture, Aerobic + Susc (01/10/2022 9:51 AM CDT) [facility] Method Time Signature Bacterial No growth 01/15/2022 DT Culture, after 5 8:05 AM CDT Aerobic + Susc days of incubation. Specimen Anatomical Collection Method Collection Time Receive d Time (Source) Location / / Volume Laterality Fluid 01/10/2022 9:51 AM 2 (Peritoneal CDT 11:24 AM CDT Fluid) Comment: Specimen Source Site: Fluid Narrative [facility] - 01/15/2022 8:05 AM CDT Bacterial Culture: Received Bactec aerob ic and Bactec anaerobic bottles Cornelia Jurado M.D. LAB MICROBIOLOGY - GENERAL O JOSE Performing Organization Address City/[facility]/ZIP Code Phon e Number [facility] - [address] Cell Count and Differential, Body Fluid (01/10/2022 9:51 AM CDT) [facility] Method Time Signature Fluid Type Peritoneal- 01/10/2022 [facility] Paracentesi 11:46 AM CDT s Gross Serous 01/10/2022 [facility] Appearance 11:46 AM CDT Total Nucleated 1047 /mcL 01/10/2022 [facility] Cells 11:46 AM CDT Comment: ----REFERENCE VALUE---- Synovial: <150 /mcL Peritoneal: <500 /mcL Pleural: <500 /mcL Pericardial: <500 /mcL ----ADDITIONAL INFORMATION---- This test has been modified from the man ufacturer's instructions. Its performance characteri stics were determined by [facility] in a manner co nsistent with CLIA requirements. This test has not bee n cleared or approved by the U.S. Food and Drug Admin istration. Neutrophils 74 % 01/11/2022 12:16 AM CDT [facility] Comment: ----REFERENCE VALUE---- Synovial: <25% Peritoneal: <25% Pleural: <25% Pericardial: <25% Lymphocytes 5 Synovial <75% % 01/11/2022 12:16 AM CD T [facility] Monocytes/Macrophages 17 Synovial <70% % 01/11/2022 1 2:16 AM CDT [facility] Other Cells 4 % 01/11/2022 12:16 AM CDT [facility] Comment: ----REFERENCE VALUE---- The reference range and other method performance specifications have not been established for this bodyfluid. The test result must be integrated into the clinical context for interpretation. Other Cells Are: Mesothelial cells 01/11/2022 5:44 AM CDT [facility] Comment SeeComment 01/11/2022 5:44 AM CDT [facility] Comment: No blasts or malignant cells se en. Degenerative neutrophils present. Reviewed by: Tech 01/11/2022 5:44 AM CDT [facility] Specimen Anatomical Collection Method Collection Time Receive d Time (Source) Location / / Volume Laterality Fluid 01/10/2022 9:51 AM 2 (Peritoneal CDT 11:28 AM CDT Fluid) Cornelia Jurado M.D. LAB BODY FLUIDS AND STOOLS O RDERABLES Performing Organization Address City/State/ZIP Code Phon e Number [facility] - [address] [place], [place] [address] [place] [address] [facility] [address] (ABNORMAL) Hemoglobin [...] Number [facility] - [address] [place] [address] 559 05 [place] [address] [address] (ABNORMAL) Comprehensive Metabolic Panel (01/10/2022 4:04 [...] Number [facility] - [address] [place] [address] 05 [facility] [place] [address] [facility] 200 [facility] (ABNORMAL) CBC with Differential, Blood (01/10/2022 4:04 [...] [facility] - 200 [place], [place] [address] [facility] [place] [place] [address] [facility] 200 [facility] (ABNORMAL) Cystatin C with Estimated GFR (01/10/2022 4:04 AM CDT) athologist Signature eGFR by 38 (L) >60 [...] M.D. LAB BLOOD ADD-ON Performing Organization Address City/[facility] Phon e Number [facility] - [address] [place], [place] [address] [facility] [place] [address] [facility] 200 [facility] (ABNORMAL) Hepatic Function Panel (01/10/2022 4:04 AM CDT) [facility] Method Time Signature Bilirubin, Total, S [...] M.D. LAB BLOOD ADD-ON Performing Organization Address City/[facility] Phon e Number [facility] - [address] [place], [place] [address] [place] [address] [facility] [address] [facility] (ABNORMAL) Haptoglobin (01/10/2022 4:04 AM CDT) [facility] Haptoglobin, S <14 (L) 30 - 200 01/13/2022 [facility] mg/dL 1:56 PM CDT Specimen Anatomical Collection Method Collection Time Receive d Time (Source) Location / / Volume Laterality Blood (Blood, 01/10/2022 4:04 AM 01/13/20 6:42 Venous) CDT AM CDT Cornelia Jurado M.D. LAB BLOOD ADD-ON Performing Organization Address City/State/ZIP Code Phon e Number [facility] [address] [place], [place] [address] 05 [place] [address] [place] [id number] [place] (ABNORMAL) LD (Lactate Dehydrogenase) (01/10/2022 4:04 AM CDT) [facility] Monica 236 (H) 122 - 222 01/10/2022 [facility] LD U/L 5:08 AM CDT Specimen Anatomical Collection Method Collection Time Receive d Time (Source) Location / / Volume Laterality Blood (Blood, 01/10/2022 4:04 AM 01/11/20 22 4:46 Venous) CDT AM CDT Cornelia Jurado M.D. LAB BLOOD NON ADD-ON Performing Organization Address City/State/ZIP Code Phon e Number [address] [address] [place] [address] (ABNORMAL) SPSMA Result (01/10/2022 4:04 AM [...] CDT Myelocytes 1 (H) <0.5 % 01/10/2022 [facility] 8:26 AM CDT Nucleated RBC 2 /100 WBC 01/10/2022 [facility] 8:26 AM CDT Manual Absolute 6.61 (H) 1.56 - 01/10/2022 [facility] Neutrophil Count 6.45 8:26 AM CDT x10(9)/L Comment: ----ADDITIONAL INFORMATION---- The manual absolute neutrophil count is derived from a manual differential count and therefore is not exactly comparable to the automated absolute armida trophil count. Interpretation SeeComment 01/10/2022 8:26 AM CDT D HPM Comment: No morphologic features of hemo lysis are seen. Reviewed by: Ruth 01/10/2022 8:26 AM CDT [facility] Specimen Anatomical Collection Method Collection Time Receive d Time (Source) Location / / Volume Laterality Blood (Blood, 01/10/2022 4:04 AM 01/11/20 4:37 Venous) CDT AM CDT Cornelia Jurado M.D. LAB BLOOD ADD-ON Performing Organization Address City/State/[facility] Phon e Number [facility] - [address] Magnesium (01/10/2022 4:04 AM CDT) P athologist Signature Magnesium, S 1.9 1.7 - 2.3 01/10/2022 DTL mg/dL 5:18 AM CDT Specimen Anatomical Collection Method Collection Time Receive d Time (Source) Location / / Volume Laterality Blood (Blood, 01/10/2022 4:04 AM 01/11/20 4:54 Venous) CDT AM CDT Cornelia Jurado M.D. LAB BLOOD ADD-ON Performing Organization Address City/[facility]/ZIP Code Phon e Number [facility] - [address] [place], [place] [address] [place] [address] Transfuse Red Blood Cells : (01/10/2022 1:51 [...] LAB BLOOD NON ADD-ON Performing Organization Address City/[facility] Phon e Number [facility] [address] (ABNORMAL) Hemoglobin (01/09/2022 9:13 PM CDT) athologist Signature Hemoglobin 6.6 (L) 11.6 - 15.0 01/09/2022 DTL g/dL 11:14 PM CDT Specimen Anatomical Collection Method Collection Time Receive d Time (Source) Location / / Volume Laterality Blood (Blood, 01/09/2022 9:13 PM 01/10/20 9:40 Venous) CDT PM CDT Cornelia Jurado M.D. LAB BLOOD ADD-ON Performing Organization Address City/State/[facility] Phon e Number [facility] - [address] Transfuse Red Blood Cells : (01/09/2022 [...] [facility]ICAL [facility]ENTER [facility] - [address] [place], [place] [address] [facility] [place] [address] [facility] [address] ECG 12 Lead (01/09/2022 2:34 PM CDT) P athologist Signature Ventricular Rate 108 BPM MUSE ECG/Min TX Interval 158 ms MUSE QRSD Interval 86 ms MUSE QT Interval 360 ms MUSE QTC Interval 482 ms MUSE P Byron 85 degrees MUSE R Byron 117 degrees MUSE T Wave Byron 84 degrees MUSE Specimen Anatomical Collection Method [...] POC, V Asymptomatic (01/09/2022 1:45 PM CDT) [facility] Method Time Signature SARS Undetected Undetected 01/09/2022 DTLR Coronavirus-2 2:05 PM CDT , RNA, Rapid POC, V Comment: Negative for SARS-CoV-2. The [employer] COVID-19 test is a molecular jonathan t for SARS-CoV-2, the virus that causes COVID- 19. A Negative result means that the [facility] COV ID-19 test did not detect SARS-CoV-2 virus in your sample. [facility] COVID-19 test uses the [employer] Mo nitoring System. This test has received Emergency Use Authorization (EUA) by the U.S. Food and Drug Administration (FDA) and is used per man ufacturer instructions. Performance characteristic s were verified by [facility] in a manner consistent with CLIA requirements. Fact sheets for this Emerg ency Use Authorization (EUA) can be found at the following links: Providers: https://[employer]/documentation/prov iders.pdf Patients: https://[employer]com/documentation/deshawn ents.pdf SARS Coronavirus 2, Source Nasopharynx DEFAULT 01/09/2022 2:05 PM CDT DTLR Specimen Anatomical Collection Method Collection Time Receive d Time (Source) Location / / Volume Laterality Varies 01/09/2022 1:45 PM 1:45 (Nasopharynx) CDT PM CDT Reese Reyes M.D. LAB MICROBIOLOGY - GENERAL O JANERABLES Performing Organization Address City/[facility] Phon e Number PERFORMING LABS, REF [place] [address] INTERFACE Ref Interface 200 [facility] DTLR Performing Labs, [place] [address] Interface 200 [facility] Bacteria / Raudel Culture, Blood # 2 (01/09/2022 10:11 AM CDT) [facility] Method Time Signature Bacteria/Adriana No growth 01/14/2022 DTL da Culture, after 5 11:02 AM CDT Blood days of incubation. Specimen (Source) Anatomical Collection Method Collection Time Re ceived Time Location / / Volume Laterality Blood (Blood, 01/09/2022 10:11 01/09/2022 Peripheral Draw) AM CDT 10:32 AM CD T Comment: Specimen Source Site: Blood Narrative [facility] - [facility] - 01/14/2022 11:02 AM CDT Received Bactec Peds bottle Wilfredo Vigil P.A.-C. LAB MICROBIOLOGY - GENERAL O JANERABLES Performing Organization Address City/[facility] Phon e Number [facility] - [address] [place], [place] [address] [facility] [place] [place] [address] [facility] 200 [facility] (ABNORMAL) Dipstick, Urine (01/09/2022 10:04 AM CDT) [facility] Method Time Signature Hemoglobin, Negative Negative [...] M.D. LAB URINE ORDERABLES Performing Organization Address City/[facility]/ZIP Code Phon e Number [facility] - [address] 200 [facility] pH, Random, Urine (01/09/2022 10:04 AM CDT) athologist Signature pH, Random, U 5.9 4.5 - 8.0 01/09/2022 DTL 10:48 AM CDT Specimen Anatomical Collection Method Collection Time Receive d Time (Source) Location / / Volume Laterality Urine 01/09/2022 10:04 01/09/2022 AM CDT 10:21 AM CDT Migue Garcia Jr., M.D. LAB URINE ORDERABLES Performing Organization Address City/[facility]/ZIP Code Phon e Number [facility] - [address] [place] [address] Osmolality, Urine (01/09/2022 10:04 AM CDT) athologist Signature Osmolality, U 428 150 - 1150 01/09/2022 DT mOsm/kg 10:48 AM CDT Specimen Anatomical Collection Method Collection Time Receive d Time (Source) Location / / Volume Laterality Urine 01/09/2022 10:04 01/09/2022 AM CDT 10:21 AM CDT Migue Garcia Jr., M.D. LAB URINE ORDERABLES Performing Organization Address City/State/ZIP [facility] [place] [place] Phon e Number [facility] - [address] (ABNORMAL) Microscopic Manual (01/09/2022 10:04 AM [...] M.D. LAB URINE ORDERABLES Performing Organization Address City/[facility] Phon e Number [facility] - [address] Bacterial Culture, Aerobic + Susc, Urine (01/09/2022 10:04 AM CDT) [facility] Signature Urine Culture No growth 01/10/2022 DT after 1 day 8:28 AM CDT of incubation. Specimen Anatomical Collection Method Collection Time Receive d Time (Source) Location / / Volume Laterality Urine (Urine, 01/09/2022 10:04 01/09/2022 Straight AM CDT 11:23 AM CDT Catheter) Comment: Specimen Source Site: Urine Migue Garcia Jr., M.D. LAB MICROBIOLOGY - GENERA L ORDERABLES Performing Organization Address City/[facility] Phon e Number [facility] - [address] (ABNORMAL) Urinalysis with Microscopic: Urine, Straight Catheter (01/09/2022 10:04 AM CDT) Patholo gist Method Time Signature Source Urine, 01/09/2022 DTL Urine, 10:21 AM CDT Straight Catheter Color, U Trinity (A) 01/09/2022 DTL 10:21 AM CDT Clarity, [...] M.D. LAB URINE ORDERABLES Performing Organization Address City/[facility] Phon e Number [facility] - [address] D[place] [address] [address] [facility] Lactate, POCT (01/09/2022 10:04 AM CDT) [facility] Time Signature Lactate, POCT Collected DEFAULT 01/09/2022 SMLX 10:04 AM CDT Specimen Anatomical Collection Method Collection Time Receive d Time (Source) Location / / Volume Laterality Blood (Blood, 01/09/2022 10:04 01/09/2022 Venous) AM CDT 10:04 AM CDT Wilfredo Vigil P.A.-C. LAB POCT ORDERABLES - DEVICE Performing Organization Address City/[facility] Phon e Number [facility] - [address] S[address]X [address] Bacteria / Raudel Culture, Blood #1 (01/09/2022 10:04 AM CDT) [facility] gist Method Time Signature Bacteria/Adriana No [...] - GENERAL O RDERABLES Performing Organization Address City/[facility] Phon e Number [facility] - 200 [place], [place] [address] [facility] DTL [address] Glucose, POCT (01/09/2022 10:04 AM CDT) Analysis Performed At Patho logist Time Signature Glucose, POCT, Collected DEFAULT 01/09/2022 SMLX B 10:04 AM CDT Specimen Anatomical Collection Method Collection Time Receive d Time (Source) Location / / Volume Laterality Blood (Blood, 01/09/2022 10:04 01/09/2022 Capillary) AM CDT 10:04 AM CDT Wilfredo Vigil P.A.-C. LAB POCT ORDERABLES-MANUAL Performing Organization Address City/[facility] Phon e Number [facility] - [address] [place] [address] SMLX [place], [place] [address] [place] [address] (ABNORMAL) Hepatic Function Panel (01/09/2022 10:03 AM [...] Venous) AM CDT 10:46 AM CDT Wilfredo LaguerreCSuma LAB BLOOD ADD-ON Performing Organization Address [facility] Phon e Number [facility] - [address] [place] [address] [place] [address] Laboratories-[address] (ABNORMAL) Prothrombin Time (PT) (01/09/2022 10:03 [...] Venous) AM CDT 10:17 AM CDT Wilfredo LaguerreCSuma LAB BLOOD ADD-ON Performing Organization Address City/[facility] Phon e Number [facility] - [address] [place] [address] 05 [place] [address] Laboratories-[address] (ABNORMAL) CBC with Differential, Blood (01/09/2022 [...] MEDICAL CENTER [facility] - [address] [place], [place] [address] [place] [address] [facility] 200 [facility] hCG (Human Chorionic Gonadotropin), Quantitative, (01/09/2022 10:02 [...] Number [facility] - [address] [place] [address] 05 [place] [address] [facility] 200 [facility] (ABNORMAL) Basic Metabolic Panel (01/09/2022 10:02 [...] - 140 mg/dL 01/09/2022 10:33 AM CDT [facility] Spec[facility] Anatomical Collection Method Collection Time Receive d Time (Source) Location / / Volume Laterality Blood (Blood, 01/09/2022 10:02 01/09/2022 Venous) AM CDT 10:17 AM CDT Wilfredo Vigil P.A.-C. LAB BLOOD ADD-ON Performing Organization Address City/State/ZIP Code Phon e Number [facility] - [address] [place], [place] [address] [facility] [place] [address] [facility] [address] [place] [address] [facility] [address] Glucose, POCT (01/09/2022 [...] Organization Address City/State/ZIP Code Phon e Number [facility] [address] [place] [address] PCLX [facility] [place] [address] [place] P[facility] [address] (ABNORMAL) Dipstick, POCT, Urine (01/09/2022 10:00 AM CDT) Patholo gist Method Time Signature Glucose, Negative Negative 01/09/2022 PCED POCT, U mg/dL 10:02 AM CDT Ketone, POCT, Negative Negative 01/09/2022 PCED U mg/dL 10:02 AM CDT Specific 1.015 1.005 - 01/09/2022 PC[facility] [place], 1.030 10:02 AM CDT POCT, U Blood, [...] POCT ORDERABLES - DEVICE Performing Organization Address City/[facility]/ZIP Code Phon e Number POC [facility] [address] [place] [address] [place] [address] [facility] [address] (ABNORMAL) Ammonia (01/09/2022 9:59 AM CDT) P athologist Signature Ammonia, P 119 (H) <=30 01/09/2022 DTL mcmol/L 11:05 AM CDT Specimen Anatomical Collection Method Collection Time Receive d Time (Source) Location / / Volume Laterality Blood (Blood, 01/09/2022 9:59 AM 01/10/20 22 Venous) CDT 10:24 AM CDT Wilfredo Vigil P.A.-C. LAB BLOOD NON ADD-ON Performing Organization Address City/[facility]/ZIP Code Phon e Number [facility] - [address] [place], [place] [address] [facility] [place] [address] [facility] [address] Lipase (01/09/2022 9:56 AM CDT) P athologist [...] MEDICAL CENTER LABORATOR[facility] - [address] [place], [place] [address] [facility] [place] [address] [facility] [address] [facility] Type and Screen (with reflex Antibody [...] MEDICAL CENTER LABOR[facility] - [address] [place] [address] 05 [facility] [place] [address] [facility] [address] (ABNORMAL) [...] Address City/State/ZIP Code Phon e Number POC [facility] [address] [place] [address] [place] [address] [facility] [address] [facility] documented in this encounter Visit Diagnoses Diagnosis [...] 0826 (Ne w Bag - Provider: Yanira Martinez, RGabby) 60 g, intravenous, Once, On Wed01/12/22 at 0700, For 1 dose, If no infusion rate specified: Administer the 25% solution at 100 mL/hr cefTRIAXone in dextrose (iso-osm) IVPB 1 g (ROCEPHIN) (CANCELED) 1506 (New Bag - Provider: Yanira Martinez REric.) 1600 (New Bag - Provider: Leandra morris [...] community acquired folic acid tablet 1 mg 08 (Given - Provider: Yanira diaz R.N.) 0813 [...] Kary Dickson RGabby) 2015 (Given - Provider: Andrew VilaNSuma) 50 mg, oral, Daily at bedtime, First dose on Wed01/10/22 at 0030 vitamin A capsule 3,000 mcg 08 (Given - Provider: Yanira lucas RSumaNSuma) 0943 (Given - Provider: Leadnra Estevez R.N.) 3,000 mcg, oral, 3 times [...] R.N.)2015 (Given - Provider: Kindra Knight R.N.) 0155 (Given - Provider: Kindra Knight RSumaN.)0939 (Given - Provider: Lenadra Estevez R.N.)1627 (Given - Provider: Kain Winston RSumaNSuma) 500 mg, oral, Every 6 hours PRN, mild pa in or score 1-3 of 10, moderate pain or score 4-6 of 10, Starting on Wed01/13/22 at 1322 diclofenac sodium 1 % gel 2 g (VOLTAREN) 1251 (Given - Provider: Leandra Estevez R.N.)2017 (Given - Provider: Kindra Knight RSumaN.) 0155 (Given - Provider: Andrew VilaN.) 2 g, topical, 4 times daily PRN, [...] Provider: Almita Britt RGabby)0821 (Given - Provider: Yanira Martinez RSumaNSuma) 1 mg, oral, Every 4 hours PRN, moderate pain or score 4-6 of 10, Starting on Wed01/09/22 at 1615 HYDROmorphone tablet 1 mg (DILAUDID) () 1999 (Tristan parkeren - Provider: Kary Dickson RSumaN.) 0812 (Given - Provider: Leandra Estevez R.N.) 1 mg, oral, Every 12 hours PRN, moderate pain or score 4-6 of 10, Starting on Wed01/12/22 at 1115, For 21 hours lidocaine 10 mg/mL (1 %) injection (XYLOCAINE) (COMPLETED) 1450 (Given - Provider: Sree Lund M.D.) Code/trauma/sedation medication, Starting on Wed01/13/22 at 1450 LORazepam tablet 0.5 mg (ATIVAN) (COMPLETED) 1338 (Given - Provider: Miabella M Estevez, R.N.) 0.5 mg, oral, Once as needed, [...] Provider: Yanira Martinez R.N.)1736 (Given - Provider: Vanessa Stevenson.N.) 4 mg, oral, Every 6 hours PRN, [...] as of this encounter Care Teams Industrial Spray Painter Relationship Specialty Start Date End Date Ana Red P.A.-C. PCP - General Internal Medicine 12/01/[address] [place] [phone] [facility] [place] [facility] 08/25/21 Ervin Schroeder MD Referring Provider Family Medicine 03/24/[address] [place] [phone] documented as of this encounter
--- OUTSIDE RECORDS SUMMARY | 2022-02-16 12:20 | XMS_ITS | Encounter Summary ---
:1990 Author Organization [facility] Address [address] [place] [address] Care Team Providers Name Role Phone Ana Red P.A.-C. Primary Care Provider [phone] Reason for Visit Transplant (Routine) - Closed Specialty Diagnoses / Procedures Referred By Contact Refer red To Contact Transplant Surgery / Joel Tan [facility] L.I.C.S.W., M.S.W. [address] [place] [address] Referral ID Status Reason Start Date Expiration Date Visits Requ ested Visits Authorized [id number] Closed 10/29/2021 10/29/2022 1 1 Encounter Details Date Type Department Care Team Description 01/13/2022 Telemedicine Joel Sage rrhosis Alcoholic Center for L, L.I.C.S.W., (HCC) (Primar y Dx) Transplantation and M.S.W. Clinical Regeneration in [address] [place] [address] [place] [address] [place] [address] [phone] Social History Tobacco Use Types Packs/Day Years [...] you attend yazidism or Patient refused 2021 adventist services? 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 - 01/13/2022 10:45 AM CDT Consult conducted remotely via real-time audio/video technology through HIPAA compliant Zoom by Shala Shields, M.S.W. to the patient at her hospital room: [id number]. This Video Visit was performed during the [...] follow up. She is currently hospitalized at [facility]. She reports being admitted to the hospital [...] medical marijuana. She stated she has [facility], Ana Red PA-C, at [facility], whom she states has prescribed herFlexeril due to a pulled muscle in the patient's back and also back spasms. The patient is wonderingabout working with physical therapy after her discharge from the hospital. I advised the patient to contact her nurse and/or doctor while she is currently hospitalized to inquire about this and have also informed inpatient social service director, Alexei Deshpande, [facility], about the patient's inquiry. The patient stated [...] management per Radhames Neumann, Ph.D., L.P. in [facility] (Pain Rehabilitation), 10/06/2021: - virtual [...] her in the mail in regards to [facility]'s outpatient addiction program and believes they [...] been sent to Dr. Jerome, Dr. Neumann, DrDr. Glenny Mera, the pre-liver transplant nurse coordinators and the transplant center [facility] in regards to my visit with the [...] Appointment Radiology Matthew Jerome 2 YJoshuaB.B.SLilian Moise [address] [place] [phone] Appointment Gastroenterology and Adrianne, 2 Hepatology Yue Burciaga M.D. [address] [place] [phone] Virtual Visit Transplant LuisMatthew abdul 2 Y M.B.B.SLilian Moise [address] [place] [phone] Office Visit Gastroenterology and LuisNew badular 2 Hepatology Joshua RodriguezBSumaBLilian Bedolla [address] [place] [phone] Appointment Radiology Matthew Jerome 2 YTyrell M.D. [address] [place] [phone] Hospital Gastroenterology and [facility] Cirrhos is Alcoholic (HCC) 2 Encounter Hepatology Tyrell Rodriguez M.D. [address] [place] [phone] Anesthesia Event Gastroenterology and [facility], 2 Hepatology Ervin Burgos M.D. [address] [place] [phone] Surgery Gastroenterology and [facility] ESOPHAG OGASTRODUODENOSCOPY 2 Hepatology Tyrell Rodriguez M.D. [address] [place] [phone] Scheduled Procedures Name Priority Associated Diagnoses Date/Time ESOPHAGOGASTRODUODENOSCOPY Cirrhosis Alc oholic (HCC) 03/20/2022 8:45 AM ANIMAL TAXONOMIST Hypertension Portal (HCC) documented as of this encounter Visit Diagnoses Diagnosis Cirrhosis Alcoholic (HCC) Hypertension Portal (HCC) Cirrhosis Alcoholic (HCC) - Primary Cirrhosis Alcoholic (HCC) Hypertension Portal (HCC) documented in this encounter Additional Health Concerns Assessment Noted Time PHQ-9 Depression Total Score: 10 10/06/2021 5:00 PM CD T documented as of this encounter Care Teams Project Analyst Relationship Specialty Start Date End Date Ana Red P.A.-C. PCP - General Internal Medicine 12/01/[address] [place], [place] [address]ADI Montoya [phone] [facility] [place] lab 08/25/21 Ervin Schroeder MD Referring Provider Family Medicine 03/24/[address] [place] [address] ADI Mejía [phone] documented as of this encounter
--- OUTSIDE RECORDS SUMMARY | 2022-02-16 12:20 | XMS_ITS | Encounter Summary ---
:1990 Author Organization [facility] Address [address] [place] [address] Care Team Providers Name Role Phone Ana Red P.A.-C. Primary Care Provider [phone] Encounter Details Date Type Department Care Team Description 01/13/2022 Clinical Communication Division of Digna Campbell Gastroenterology in Lilian Schaefer [place], [place] [address] [facility] [address] [place] [address] [phone] Social History Tobacco Use Types Packs/Day Years [...] attend oriental orthodox or Patient refused 2021 faith services? Do you belong to any clubs or No 02/10/2022 organizations such as oriental orthodox groups, unions, fraRawlemon or athletic groups, or school groups? 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 [address] [place] [phone] Virtual Visit Transplant Matthew Jerome 2 Tyrell Rodriguez M.D. [address] [place] [phone] Office Visit Gastroenterology and LuischantellMatthew 2 Hepatology Tyrell Rodriguez M.D. [address] [place] [phone] Appointment Radiology Matthew Jerome 2 Joshua RodriguezBLilian Staples [address] [place] [phone] Hospital Gastroenterology and Luischantell Matthew Cirrhos is Alcoholic (HCC) 2 Encounter Hepatology Tyrell Rodriguez M.D. [address] [place] [phone] Anesthesia Event Gastroenterology and Rl, 2 Hepatology Ervin Burgos M.D. [address] [place] [phone] Surgery Gastroenterology and LuisNew abdular ESOPHAG OGASTRODUODENOSCOPY 2 Hepatology Joshua RodriguezBSumaBLilian Bedolla [address] [place] [phone] Scheduled Procedures Name Priority Associated Diagnoses Date/Time ESOPHAGOGASTRODUODENOSCOPY Cirrhosis Alc oholic (HCC) 03/20/2022 8:45 AM SOLAR SALES CONSULTANT Hypertension Portal (HCC) documented as of this encounter Visit Diagnoses Not on filedocumented in this encounter Additional Health Concerns Assessment Noted Time PHQ-9 Depression Total Score: 10 10/06/2021 5:00 PM CD T documented as of this encounter Care Teams Operations Manager Relationship Specialty Start Date End Date Ana Red P.A.-C. PCP - General Internal Medicine 12/01/[address] [place] [phone] [facility] [place] lab 08/25/21 Ervin Schroeder MD Referring Provider Family Medicine 03/24/[address] [place] [address] documented as of this encounter
--- OUTSIDE RECORDS SUMMARY | 2022-02-16 12:20 | XMS_ITS | Encounter Summary ---
:1990 Author Organization [facility] Address [address] [place] [address] Care Team Providers Name Role Phone Ana Red P.A.-C. Primary Care Provider [phone] Reason for Referral Transplant (Routine) - Authorized Specialty Diagnoses / Procedures Referred By Contact Refer red To Contact Transplant Surgery / Joel Tan [facility] Transplant Shala, M.S.WSuma [address] [place] [address] Referral ID Status Reason Start Date Expiration Date Visits V isits Requested Authorized [id number] Authorized 01/13/2022 01/12/2025 1 1 Scheduling Instructions Please schedule a follow up visit with Jt vasquez [facility]. Patient prefers video visit. Thank you. Encounter Details Date Type Department Care Team Description 01/13/2022 Orders Only Department of Social Work Rajiv Tan, in [facility] pedro Last, M.S.W. 200 [facility] 200 [place] [address] [place] [address] [phone] (Wo ) Social History Tobacco Use Types Packs/Day Years [...] you attend yazidi or Patient refused 2021 yazidism services? 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 [address] [place] [phone] Appointment Gastroenterology demian Silver 2 Hepatology Yue Burciaga M.D. [address] [place] [phone] Virtual Visit Transplant Matthew Jerome 2 Tyrell Rodriguez M.D. [address] [place] [phone] Office Visit Gastroenterology and Mattehw Jerome 2 Hepatology Tyrell Rodriguez M.D. [address] [place] [phone] Appointment Radiology Matthew Jerome 2 YTyrell M.D. [address] [place] [phone] Hospital Gastroenterology and Queenie Matthew Cirrhos is Alcoholic (HCC) 2 Encounter Hepatology Vik RodriguezBLilian Bedolla [address] [place] [phone] Anesthesia Event Gastroenterology and Rl, 2 Hepatology Ervin Burgos M.D. [address] [place] [phone] Surgery Gastroenterology and Matthew Jerome ESOPHAG OGASTRODUODENOSCOPY 2 Hepatology Tyrell Rodriguez M.D. [address] [place] [phone] Scheduled Procedures Name Priority Associated Diagnoses Date/Time ESOPHAGOGASTRODUODENOSCOPY Cirrhosis Alc oholic (HCC) 03/20/2022 8:45 AM JANITOR SUPERVISOR Hypertension Portal (HCC) Scheduled Referrals Name [...] as of this encounter Care Teams Joint Terminal Attack Controller Relationship Specialty Start Date End Date Ana Red P.A.-C. PCP - General Internal Medicine 12/01/[address] [place] [phone] [facility] [place] lab 08/25/21 Ervin Schroeder MD Referring Provider Family Medicine 03/24/[address] [place] [address] documented as of this encounter
--- OUTSIDE RECORDS SUMMARY | 2022-02-16 12:20 | XMS_ITS | Encounter Summary ---
:1990 Author Organization [facility] Address [address] [place] [address] Care Team Providers Name Role Phone Ana Red P.A.-C. Primary Care Provider [phone] Encounter Details Date Type Department Care Team Description 01/08/2022 Clinical Communication Department of Debra Red [facility] Farida Perez Medicine in [address] [address] [place], [place] [phone] (Work) [phone] Social History Tobacco Use Types Packs/Day Years [...] or the highest technical, or vocational p Skoovyram degree you have received? 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 [address] [place] [phone] Virtual Visit Transplant Matthew Jerome 2 YVikBGraeme, Lilian [address] [place] [phone] Office Visit Gastroenterology and Matthew Jerome 2 Hepatology Vik RodriguezBLilian Bedolla [address] [place] [phone] Appointment Radiology Matthew Jerome 2 YVikBLilian Bedolla [address] [place] [address] [phone] Hospital Gastroenterology and Mousa, Matthew Cirrhos is Alcoholic (HCC) 2 Encounter Hepatology Tyrell Rodriguez, Lilian [address] [place] [phone] Anesthesia Event Gastroenterology and Rl, 2 Hepatology Ervin Burgos M.D. [address] [place] [address] [phone] Surgery Gastroenterology and Mousa, Matthew ESOPHAG OGASTRODUODENOSCOPY 2 Hepatology Tyrell Rodriguez, Lilian [address] [place] [phone] Scheduled Procedures Name Priority Associated Diagnoses Date/Time ESOPHAGOGASTRODUODENOSCOPY Cirrhosis Alc oholic (HCC) 03/20/2022 8:45 AM STERILE PROCESSING TECHNICIAN Hypertension Portal (HCC) documented as of this encounter Visit Diagnoses Not on filedocumented in this encounter Additional Health Concerns Assessment Noted Time PHQ-9 Depression Total Score: 10 10/06/2021 5:00 PM CD T documented as of this encounter Care Teams Manager Clinic Relationship Specialty Start Date End Date Ana Red P.A.-C. PCP - General Internal Medicine 12/01/[address] [place] [phone] [facility] [place] lab 08/25/21 Ervin Schroeder MD Referring Provider Family Medicine 03/24/[address] [place] [address] documented as of this encounter
--- OUTSIDE RECORDS SUMMARY | 2022-02-16 12:20 | XMS_ITS | Encounter Summary ---
:1990 Author Organization [facility] Address [address] [place] [address] Care Team Providers Name Role Phone Ana Red P.A.-C. Primary Care Provider [phone] Reason for Referral Transplant (Routine) - Closed Specialty Diagnoses / Procedures Referred By Contact Refer red To Contact Transplant Surgery / Adeline Frazier Royer Gannon M.D., Ph.D. [address] [place] [phone] Referral ID Status Reason Start Date Expiration Date Visits Requ ested Visits Authorized [id number] Closed 01/13/2022 01/12/2025 1 1 Scheduling Instructions Lab work to be done on her next visit to [place] Reason for Visit Transplant (Routine) - Closed Specialty Diagnoses / Procedures Referred By Contact Refer red To Contact Transplant Surgery / Adeline Frazier Transplant Lilian Gannon, Ph.D. [address] [place] [phone] Referral ID Status Reason Start Date Expiration Date Visits Requ ested Visits Authorized [id number] Closed 10/10/2021 10/10/2022 1 1 Encounter Details Date Type Department Care Team Description 01/13/2022 Telemedicine Adeline Antoine M.D., Ph.D. 200 [place] [phone] Moderate Or Severe [facility] Cathleen, Elena Loretta Use Disorder Transplantation and (Depende nce) Alcohol Clinical Regeneration in [facility] ission ([facility]) [place], [place] (Primary Dx) [address] [place] [address] Social History Tobacco Use Types Packs/Day [...] you attend protestant or Patient refused 2021 moravian services? 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 Gender: female Address: [address] [place] [phone] Appointment conducted via real-time audio/video technology by GARY Coleman in [facility] to the patient in [facility] Bakari C-124. . CHIEF COMPLAINT / REASON FOR VISIT Transplant Addiction Psychiatry Individual follow up session Pre-transplant, Liver Supervising Coordinator Volunteer Services: Dr. aMrva Frazier M.D. Ph.D Total Counseling Time: 15 Minutes HISTORY OF PRESENT ILLNESS I had the opportunity to review the patient's medical record as it relates to transplant addiction psychiatry. The patient is a 31 y.o. female from [place], [place]. Today, the patient is presenting alonefrom [...] by history; currently medicinal cannabis use #3 [facility] Use Of Opiate Analgesic #4 Nicotine Dependence Cigarettes #5 Mood Disorder Unspecified #6 Anxiety Disorder Unspecified #7 Eating disorder (purging and restricting), by history #8 Chronic Pain Syndrome #9 Hepatic Encephalopathy moderate COUNSELOR IMPRESSION: The patient is a pleasant 31 year old single woman calling in from a hospital room in [facility]. She reports being hospitalized with encephalopathy confusion. She verbalized a great deal of commitment to enter treatment and to do whatever I have to to get a transplant. She reports having begun the intake process for [facility]'s virtual Addiction Treatment Program. She is aware [...] management per Radhames Neumann, Ph.D., L.P. in [place] [facility] (Pain Rehabilitation), 10/06/2021: - virtual [...] the patient via the portal and via [employer]. Upon it'sreturn we can check her insurance coverage for [facility] virtual Outpatient Addiction Treatment Program. If her [...] Radiology Matthew Jerome 2, M.B.B.S., M.D. [address] [place] [phone] Appointment Gastroenterology and Adrianne, 2 Hepatology Yue Burciaga M.D. [address] [place] [phone] Virtual Visit Transplant Matthew Jerome 2 YTyrell M.D. [address] [place] [phone] Office Visit Gastroenterology and Matthew Jerome 2 Hepatology Tyrell Rodriguez M.D. [address] [place] [phone] Appointment Radiology LuisMatthew abdul 2 Tyrell Rodriguez M.D. [address] [place] [phone] Hospital Gastroenterology and [place] Matthew Cirrhos is Alcoholic (HCC) 2 Encounter Hepatology Tyrell Rodriguez M.D. [address] [place] [phone] Anesthesia Event Gastroenterology and Rl, 2 Hepatology Ervin Burgos M.D. [address] [place] [phone] Surgery Gastroenterology and Matthew Jerome ESOPHAG OGASTRODUODENOSCOPY 2 Hepatology Tyrell Rodriguez M.D. [address] [place] [phone] Scheduled Procedures Name Priority Associated Diagnoses Date/Time ESOPHAGOGASTRODUODENOSCOPY Cirrhosis Alc oholic (HCC) 03/20/2022 8:45 AM MAP COMPILER Hypertension Portal (HCC) Scheduled Referrals Name Type Priority Associated Order Schedule Diagnoses Transplant Liver Outpatient Referral Routine Expe cted: office visit 02/12/2022 (clinic) (Approximate), Expires: 01/13/2023 documented as of this encounter Results Ethyl Glucuronide Screen with Reflex, Urine (02/12/2022 10:29 AM CDT) [employer] Method Time Signature Ethyl Negative Cutoff: 02/12/2022 SDSC Glucuronide Scrn 500 ng/mL 2:35 PM CDT w/Reflex, U Comment: ----ADDITIONAL INFORMATION---- This test was developed and its performa nce characteristics determined by [facility] in a manner consistent with CLIA [...] Organization Address City/State/ZIP Code Phon e Number [facility] [address] [place] [id number] [place] Drug Abuse Survey with Confirmation, Urine (02/12/2022 10:29 AM CDT) [facility] Method Time Signature Alcohol Negative Cutoff: 10 [...] Organization Address City/State/ZIP Code Phon e Number [facility] [address] [place], [place] [address] [place] [id number] [place] [address] [place] documented in this encounter Visit Diagnoses Diagnosis Cirrhosis Alcoholic (HCC) Hypertension Portal (HCC) Moderate Or Severe Use Disorder (Depende nce) Alcohol Remission (HCC) - Primary Cirrhosis Alcoholic (HCC) Hypertension Portal (HCC) documented in this encounter Additional Health Concerns Assessment Noted Time PHQ-9 Depression Total Score: 10 10/06/2021 5:00 PM CD T documented as of this encounter Care Teams Finance Accounting Internship Relationship Specialty Start Date End Date Ana Red P.A.-C. PCP - General Internal Medicine 12/01/[address] [place] [phone] [facility] [place] lab 08/25/21 Ervin Schroeder MD Referring Provider Family Medicine 03/24/[address] [place] [address] documented as of this encounter
--- OUTSIDE RECORDS SUMMARY | 2022-02-16 12:20 | XMS_ITS | Encounter Summary ---
:1990 Author Organization [facility] Address [address] [place] [address] Care Team Providers Name Role Phone Ana Red P.A.-C. Primary Care Provider [phone] Encounter Details Date Type Department Care Team Description 01/07/2022 Patient Self-Triage CONNECTED CARE Symptom Quality Control Tech Raw Materials, Provider Social History Tobacco Use Types Packs/Day [...] you attend sabianist or Patient refused 2021 synagogue services? 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 [address] [place] [phone] Virtual Visit Transplant Matthew Jerome 2 YTyrell M.D. [address] [place] [address] [phone] Office Visit Gastroenterology and Matthew Jerome 2 Hepatology Tyrell Rodriguez M.D. [address] [place] [address] [phone] Appointment Radiology Queenie Matthew 2 YTyrell, Lilian [address] [place] [address] [phone] [facility] Cirrhos is Alcoholic (HCC) 2 Encounter Hepatology Tyrell Rodriguez M.D. [address] [place] [address] [phone] Anesthesia Event Gastroenterology and [facility], 2 Hepatology Ervin Burgos M.D. [address] [place] [phone] Surgery Gastroenterology and [facility] ESOPHAG OGASTRODUODENOSCOPY 2 Hepatology Tyrell Rodriguez M.D. [address] [place] [address] [phone] Scheduled Procedures Name Priority Associated Diagnoses Date/Time ESOPHAGOGASTRODUODENOSCOPY Cirrhosis Alc oholic (HCC) 03/20/2022 8:45 AM ARTIFICIAL INSEMINATOR Hypertension Portal (HCC) documented as of this encounter Visit Diagnoses Not on filedocumented in this encounter Additional Health Concerns Assessment Noted Time PHQ-9 Depression Total Score: 10 10/06/2021 5:00 PM CD T documented as of this encounter Care Teams Instant Powder Supervisor Relationship Specialty Start Date End Date Ana Red P.A.-C. PCP - General Internal Medicine 12/01/[address] [place] [address] ADI Chua [phone] [facility] [place] lab 08/25/21 Ervin Schroeder MD Referring Provider Family Medicine 03/24/[address] [place] [address] ADI Mejía [address] (work) documented as of this encounter
--- OUTSIDE RECORDS SUMMARY | 2022-02-16 12:20 | XMS_ITS | Encounter Summary ---
:1990 Author Organization [facility] Address [address] [place] [address] Care Team Providers Name Role Phone Ana Red P.A.-C. Primary Care Provider [phone] Encounter Details Date Type Department Care Team Description 01/13/2022 Clinical Communication Division of Digna Campbell Gastroenterology in Lilian Schaefer [place], [place] [address] [facility] [address] [place] [address] [phone] Social History Tobacco Use Types Packs/Day Years [...] you attend restoration or Patient refused 2021 shinto services? Do you belong to any clubs or No 02/10/2022 organizations such as restoration groups, unions, fraAurora Diagnostics or athletic groups, or school groups? 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 [address] [place] [phone] Virtual Visit Transplant Matthew Jerome 2 YTyrell M.D. [address] [place] [phone] Office Visit Gastroenterology and [facility] 2 Hepatology Tyrell Rodriguez M.D. [address] [place] [phone] Appointment Radiology [facility] 2 YTyrell M.D. [address] [place] [phone] Hospital Gastroenterology and [facility] Cirrhos is Alcoholic (HCC) 2 Encounter Hepatology Tyrell Rodriguez M.D. [address] [place] [phone] Anesthesia Event Gastroenterology and Rl, 2 Hepatology Ervin Burgos M.D. [address] [place] [phone] Surgery Gastroenterology and [facility] ESOPHAG OGASTRODUODENOSCOPY 2 Hepatology Tyrell Rodriguez M.D. [address] [place] [phone] Scheduled Procedures Name Priority Associated Diagnoses Date/Time ESOPHAGOGASTRODUODENOSCOPY Cirrhosis Alc oholic (HCC) 03/20/2022 8:45 AM PER DIEM NURSE Hypertension Portal (HCC) documented as of this encounter Results (ABNORMAL) CBC with Differential, Blood (01/20/2022 12:07 PM CDT) [facility] Method Time Signature Hemoglobin 7.4 (L) [...] Code Phon e Number [facility]- [address] [place] [address] [facility] [address] [place] [address] System in [place] [address] (ABNORMAL) Comprehensive Metabolic Panel [...] Phon e Number [facility]- [address] [place] [address] [facility] [place] [address] System in [place] [address] documented in this encounter Visit Diagnoses Diagnosis Cirrhosis Alcoholic (HCC) Hypertension Portal (HCC) 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 PCP - General Internal Medicine 12/01/[address] [place] [phone] [facility]- [place] lab 08/25/21 Ervin Schroeder MD Referring Provider Family Medicine 03/24/[address] [place] [address] documented as of this encounter
--- OUTSIDE RECORDS SUMMARY | 2022-02-16 12:21 | XMS_ITS | Encounter Summary ---
:1990 Author Organization [facility] Address [address] [place] [address] Care Team Providers Name Role Phone Ana Red P.A.-C. Primary Care Provider [phone] Encounter Details Date Type Department Care Team Description 12/12/2021 Documentation [place], [place] meena Gannon for Transplantation and Mariluz Oliva, M.S.W. Clinical Regeneration in [address] [place] [address] [address] [place] [address] [place] [address] [phone] Social History Tobacco Use Types Packs/Day Years [...] you attend baptist or Patient refused 2021 alevism services? Do [...] or the highest technical, or vocational p [employer] degree you have received? 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 He stated he has spoken with [...] management per Radhames Neumann, Ph.D., L.P. in [place] [facility] (Pain Rehabilitation), 10/06/2021: - virtual [...] Specialty Care Team Description Telemedicine Transplant 2 10/19/202 Appointment Radiology LuisMatthew abdul 2 YTyrell M.D. [address] [place] [phone] Appointment Gastroenterology demian Silver, 2 Hepatology Yue Burciaga M.D. [address] [place] [phone] Virtual Visit Transplant LuisMatthew abdul 2 YTyrell M.D. [address] [place] [phone] Office Visit Gastroenterology and [place] 2 Hepatology Tyrell Rodriguez M.D. [address] [place] [phone] Appointment Radiology LuisMatthew abdul 2 YTyrell M.D. [address] [place] [phone] Hospital Gastroenterology and Matthew Jerome Cirrhos is Alcoholic (HCC) 2 Encounter Hepatology Tyrell Rodriguez M.D. [address] [place] [phone] Anesthesia Event Gastroenterology and Rl, 2 Hepatology Ervin Burgos M.D. [address] [place] [phone] Surgery Gastroenterology and Matthew Jerome ESOPHAG OGASTRODUODENOSCOPY 2 Hepatology Tyrell Rodriguez M.D. [address] [place] [phone] Scheduled Procedures Name Priority Associated Diagnoses Date/Time ESOPHAGOGASTRODUODENOSCOPY Cirrhosis Alc oholic (HCC) 03/20/2022 8:45 AM COAT REPAIR INSPECTOR Hypertension Portal (HCC) documented as of this encounter Visit Diagnoses Not on filedocumented in this encounter Additional Health Concerns Assessment Noted Time PHQ-9 Depression Total Score: 10 10/06/2021 5:00 PM CD T documented as of this encounter Care Teams Edi Developer Relationship Specialty Start Date End Date Ana Red P.A.-C. PCP - General Internal Medicine 12/01/[address] [place] [phone] [facility]- [place] lab 08/25/21 Ervin Schroeder MD Referring Provider Family Medicine 03/24/[address] [place] [address] documented as of this encounter
--- OUTSIDE RECORDS SUMMARY | 2022-02-16 12:21 | XMS_ITS | Encounter Summary ---
:1990 Author Organization [facility] Address [address] [place] [address] Care Team Providers Name Role Phone Ana Red P.A.-C. Primary Care Provider [phone] Encounter Details Date Type Department Care Team Description 12/04/2021 Clinical Communication Division of Jethro, Gastroenterology in Elizabeth Echevarria [place], [place] [address] [facility] [address] [place] [phone] [phone] Social History Tobacco Use Types Packs/Day Years [...] you attend religious or Patient refused 2021 rastafarian services? Do you belong to any clubs or No 02/10/2022 organizations such as religious groups, unions, fraUGE or athletic groups, or school groups? 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 [address] [place] [phone] Virtual Visit Transplant Matthew Jerome 2 YKishore.Lilian Salas [address] [place] [phone] [facility] Hepatology Tyrell Rodriguez M.D. [address] [place] [phone] Appointment Radiology Queenie Matthew 2 YTyrell M.D. [address] [place] [phone] [facility] Cirrhos is Alcoholic (HCC) 2 Encounter Hepatology Tyrell Rodriguez M.D. [address] [place] [phone] Anesthesia Event Gastroenterology and Rl, 2 Hepatology Ervin Burgos M.D. [address] [place] [phone] Surgery Gastroenterology and [facility] ESOPHAG OGASTRODUODENOSCOPY 2 Hepatology Tyrell Rodriguez M.D. [address] [place] [phone] Scheduled Procedures Name Priority Associated Diagnoses Date/Time ESOPHAGOGASTRODUODENOSCOPY Cirrhosis Alc oholic (HCC) 03/20/2022 8:45 AM INSIDE SALES CONSULTANT Hypertension Portal (HCC) documented as of this encounter Visit Diagnoses Diagnosis Ascites - Primary Cirrhosis Alcoholic (HCC) Cirrhosis Alcoholic (HCC) Hypertension Portal (HCC) documented in this encounter Additional Health Concerns Assessment Noted Time PHQ-9 Depression Total Score: 10 10/06/2021 5:00 PM CD T documented as of this encounter Care Teams Day Guard Relationship Specialty Start Date End Date Ana Red P.A.-C. PCP - General Internal Medicine 12/01/[address] [place] [address] ADI Chua [phone] [facility] 08/25/21 Ervin Schroeder MD Referring Provider Family Medicine 03/24/[address] [place] [phone] documented as of this encounter
--- OUTSIDE RECORDS SUMMARY | 2022-02-16 12:21 | XMS_ITS | Encounter Summary ---
:1990 Author Organization [facility] Address [address] [place] [address] Care Team Providers Name Role Phone Ana Red P.A.-C. Primary Care Provider [phone] Encounter Details Date Type Department Care Team Description 12/18/2021 Orders Only Department of Mousa, Matthew Y, Mood Disorde r (HCC) (Primary Dx); Gastroenterology in M.Joshua [place]. Anxiety Disorder Unspecified [address] [phone] Social History Tobacco Use Types Packs/Day Years [...] you attend yazidi or Patient refused 2021 temple services? Do [...] Date Recorded Female 04/12/2021 7:39 PM RN IV THERAPY documented as of this encounter Plan of Treatment Upcoming Encounters Date Type Specialty Care Team Description Telemedicine Transplant 2 Appointment Radiology Matthew Jerome 2 YVikBLilian Bedolla [address] [place] [address] Appointment Gastroenterology and [place]ne, 2 Hepatology Yue Burciaga M.D. [address] [place] [address] Virtual Visit Transplant Matthew Jerome 2 Y, M.Lilian Hudson [address] [place] [phone] Office Visit Gastroenterology and [facility] 2 Hepatology Tyrell Rodriguez M.D. [address] [place] [phone] Appointment Radiology [facility] Matthew 2 Tyrell Rodriguez M.D. [address] [place] [phone] [facility] Gastroenterology and [facility] Cirrhos is Alcoholic (HCC) 2 Encounter Hepatology Tyrell Rodriguez M.D. [address] [place] [phone] Anesthesia Event Gastroenterology and Rl, 2 Hepatology Ervin Burgos M.D. [address] [place] [phone] Surgery Gastroenterology and [facility] ESOPHAG OGASTRODUODENOSCOPY 2 Hepatology Tyrell Rodriguez M.D. [address] [place] [phone] Scheduled Procedures Name Priority Associated Diagnoses Date/Time ESOPHAGOGASTRODUODENOSCOPY Cirrhosis Alc oholic (HCC) 03/20/2022 8:45 AM RN IV THERAPY Hypertension Portal (HCC) documented as of this encounter Visit Diagnoses Diagnosis Cirrhosis Alcoholic (HCC) Hypertension Portal (HCC) Mood Disorder (HCC) - Primary Anxiety Disorder Unspecified Cirrhosis Alcoholic (HCC) Hypertension Portal (HCC) documented in this encounter Additional Health Concerns Assessment Noted Time PHQ-9 Depression Total Score: 10 10/06/2021 5:00 PM CD T documented as of this encounter Care Teams Serger Relationship Specialty Start Date End Date Ana Red P.A.-C. PCP - General Internal Medicine 12/01/[address] [place] [address] [place] [phone] [facility] 08/25/21 Ervin Schroeder MD Referring Provider Family Medicine 03/24/[address] [place] [address] ADI Mejía [phone] documented as of this encounter
--- OUTSIDE RECORDS SUMMARY | 2022-02-16 12:21 | XMS_ITS | Encounter Summary ---
:1990 Author Organization [facility] Address [address] [place] [address] Care Team Providers Name Role Phone Ana Red P.A.-C. Primary Care Provider [phone] Encounter Details Date Type Department Care Team Description 12/25/2021 Clinical Communication Department of Debra Red [facility] Farida Perez Medicine in [address] [address] [place], [place] [phone] (Work) [phone] Social History Tobacco Use Types Packs/Day Years [...] you attend worship or Patient refused 2021 sikhism services? 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 [address] [place] [phone] Virtual Visit Transplant Matthew Jerome 2 Vik RodriguezBLilian Bedolla [address] [place] [phone] Office Visit Gastroenterology and LuischantellMatthew 2 Hepatology Tyrell Rodriguez M.D. [address] [place] [phone] Appointment Radiology Matthew Jerome 2 Joshua RodriguezB.BLilian Bedolla [address] [place] [phone] Hospital Gastroenterology and Queenie Matthew Cirrhos is Alcoholic (HCC) 2 Encounter Hepatology Tyrell Rodriguez M.D. [address] [place] [phone] Anesthesia Event Gastroenterology and Rl, 2 Hepatology Ervin Burgos M.D. [address] [place] [phone] Surgery Gastroenterology and LuisNew abdular ESOPHAG OGASTRODUODENOSCOPY 2 Hepatology Joshua RodriguezBSumaBLilian Bedolla [address] [place] [phone] Scheduled Procedures Name Priority Associated Diagnoses Date/Time ESOPHAGOGASTRODUODENOSCOPY Cirrhosis Alc oholic (HCC) 03/20/2022 8:45 AM STORAGE ADMINISTRATOR Hypertension Portal (HCC) documented as of this encounter Visit Diagnoses Not on filedocumented in this encounter Additional Health Concerns Assessment Noted Time PHQ-9 Depression Total Score: 10 10/06/2021 5:00 PM CD T documented as of this encounter Care Teams Ductfixing Plumber Relationship Specialty Start Date End Date Ana Red P.A.-C. PCP - General Internal Medicine 12/01/[address] [place] [phone] [facility] 08/25/21 Ervin Schroeder MD Referring Provider Family Medicine 03/24/[address] [place] [address] documented as of this encounter
--- OUTSIDE RECORDS SUMMARY | 2022-02-16 12:21 | XMS_ITS | Encounter Summary ---
:1990 Author Organization [facility] Address [address] [place] [address] Care Team Providers Name Role Phone Ana Red P.A.-C. Primary Care Provider Reason for Visit Reason Comments Follow-up Transplant evaluation Outpatient (Routine) - Closed Specialty Diagnoses / Referred By Contact Referred To Procedures Contact Gastroenterology and Diagnoses Cirrhosis Alcoholic (HCC) Hypertension Portal (HCC) Thrombocytopenia (HCC) Abnormal Liver Function Test Deficiency Vitamin A Matthew Jerome, [facility] Hepatology M.B.B.S., MJules [address] [place] [address] Referral ID Status Reason Start Date Expiration Date Visits Requ ested Visits Authorized [id number] Closed 10/08/2021 10/08/2022 1 1 Encounter Details Date Type Department Care Team Description 12/10/2021 Office Visit Department of Matthew Jerome Cirrhosis Alco holic (HCC) (Primary Dx); Gastroenterology in Y, M.B.B.SSuma, Hyperten neptali Portal (HCC); [place], [place] Lilian Thrombocytopenia (HCC); [address] [facility] [address] [facility] Abnormal Liver Function Test; [place] [address] [place], [place] Deficiency Vitamin A; [phone] Ascites Chronic; [phone] Hepatic Encepha lopathy Without Coma (HCC) (Work) [...] you attend religion or Patient refused 2021 catholic services? 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 Please call Parris Tan in [place]. Please follow with the psych counselor at [...] years but intermittently. She was admitted in [place] during the month of October for about [...] she missed the voice messages from the clinical social work aide Parris Tan, and agreed to call her [...] out to the transplant psych team in [place] and Zenobia Hollingsworth sent the information and [...] for missing the voice messages from the clinical social work aide Parris Tan and promised me that she [...] (100 mg total) by mouth daily., Starting 12/10/2021, Until Wed12/10/2022, Normal - furosemide (LASIX) 20 [...] October 2021 #15 Newly diagnosed PFO with [id number] atrial shunt: Echo done March 2020 # [...] Radiology Matthew Jerome 2, M.B.B.S., M.D. [address] [place] [phone] Appointment GastroenterMorenita, Olinda Hepatology Yue Burciaga M.D. [address] [place] [phone] Virtual Visit Transplant Matthew Jerome 2, M.B.B.S., M.D. [address] [place] [phone] Office Visit Gastroenterology and [facility] 2 Hepatology Tyrell Rodriguez M.D. [address] [place] [phone] Appointment Rad[facility] 2 Tyrell Rodriguez M.D. [address] [place] [phone] [facility] Gastroenterology and [facility] Cirrhos is Alcoholic (HCC) 2 Encounter Hepatology Tyrell Rodriguez M.D. [address] [place] [phone] Anesthesia Event Gastroenterology and Rl, 2 Hepatology Ervin Burgos M.D. [address] [place] [phone] Surgery Gastroenterology and [facility] ESOPHAG OGASTRODUODENOSCOPY 2 Hepatology Tyrell Rodriguez M.D. 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 PCP - General Internal Medicine 12/01/[address] [place] [phone] [facility] 08/25/21 Ervin Schroeder MD Referring Provider Family Medicine 03/24/[address] [place] [address] documented as of this encounter
--- OUTSIDE RECORDS SUMMARY | 2022-02-16 12:21 | XMS_ITS | Encounter Summary ---
:1990 Author Organization [facility] Address [address] [place] [address] Care Team Providers Name Role Phone Ana Red P.A.-C. Primary Care Provider [phone] Reason for Visit Reason Comments Disability Parking Certificate Encounter Details Date Type Department Care Team Description 12/11/2021 Clinical Communication Department of [facility] Internal Ana, Edmund Medicine in P.A.-C. [facility], [facility] [place] [place] [address] [facility] [address] [place] [phone] (Work) [phone] Social History Tobacco Use Types Packs/Day Years [...] attend oriental orthodox or Patient refused 2021 sabianist services? 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 - 12/11/2021 9:16 AM CDT Disability Parking Certificate form request received. Please mail to patient after provider has signed. documented in this encounter Plan of Treatment Upcoming Encounters Date Type Specialty Care Team Description Telemedicine Transplant 2 Appointment Radiology Matthew Jerome 2 YTyrell, MJules [address] [place] [phone] Appointment Gastroenterology and Adrianne, 2 Hepatology Yue Burciaga M.D. [address] [place] [phone] Virtual Visit Transplant LuisMatthew abdul 2 Tyrell Rodriguez M.D. [address] [place] [phone] Office Visit Gastroenterology and Matthew Jerome 2 Hepatology Tyrell Rodriguez M.D. [address] [place] [phone] Appointment Radiology Queenie Matthew 2 Tyrell Rodriguez M.D. [address] [place] [phone] Hospital Gastroenterology and Matthew Jerome Cirrhos is Alcoholic (HCC) 2 Encounter Hepatology Tyrell Rodriguez M.D. [address] [place] [phone] Anesthesia Event Gastroenterology and Rl, 2 Hepatology Ervin Burgos M.D. [address] [place] [phone] Surgery Gastroenterology and Matthew Jerome ESOPHAG OGASTRODUODENOSCOPY 2 Hepatology Tyrell Rodriguez M.D. [address] [place] [phone] Scheduled Procedures Name Priority Associated Diagnoses Date/Time ESOPHAGOGASTRODUODENOSCOPY Cirrhosis Alc oholic (HCC) 03/20/2022 8:45 AM CRACK OFF PERSON Hypertension Portal (HCC) documented as of this encounter Visit Diagnoses Not on filedocumented in this encounter Additional Health Concerns Assessment Noted Time PHQ-9 Depression Total Score: 10 10/06/2021 5:00 PM CD T documented as of this encounter Care Teams Oxygen Therapy Teacher Relationship Specialty Start Date End Date Ana Red P.A.-C. PCP - General Internal Medicine 12/01/[address] [place] [phone] [facility]- [place] lab 08/25/21 Ervin Schroeder MD Referring Provider Family Medicine 03/24/[address] [place] [phone] documented as of this encounter
--- OUTSIDE RECORDS SUMMARY | 2022-02-16 12:21 | XMS_ITS | Encounter Summary ---
:1990 Author Organization [facility] Address [address] [place] [address] Care Team Providers Name Role Phone Ana Red P.A.-C. Primary Care Provider [phone] Reason for Visit Reason Comments Ascites Shortness of Breath Encounter Details Date Type Department Care Team Description 12/21/2021 Emergency [facility] Katrin Gonzalez M.D., Ph.D. [address] [place] [address] Ascites (Primary Dx) Emergency Department Clifton Liu M.D. [address] [place] [address] [place] [phone] Social History Tobacco Use Types [...] you attend buddhism or Patient refused 2021 zoroastrian services? 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 Divina Ch D.O., M.P.H. Resident 08/21/22 1449 documented in this encounter ED Notes Haile Keith M.D. - 12/21/2021 7:48 AM CDT Care for this patient was transferred to ri at shift change. Please see associated documentation [...] she needs to follow up with her guide rail cleaner to schedule the outpatient. DIFFERENTIAL DIAGNOSIS Liver [...] Radiology Matthew Jerome 2 YTyrell M.D. [address] [place] [phone] Appointment Gastroenterology and Adrianne, 2 Hepatology Yue Burciaga M.D. [address] [place] [phone] Virtual Visit Transplant Matthew Jerome 2 YTyrell M.D. [address] [place] [phone] Office Visit Gastroenterology and [facility] 2 Hepatology Tyrell Rodriguez M.D. [address] [place] [phone] Appointment Radiology [facility] 2 Tyrell Rodriguez M.D. [address] [place] [phone] [facility] Gastroenterology and [facility] Cirrhos is Alcoholic (HCC) 2 Encounter Hepatology Tyrell Rodriguez M.D. [address] [place] [phone] Anesthesia Event Gastroenterology and Rl, 2 Hepatology Ervin Burgos M.D. [address] [place] [phone] Surgery Gastroenterology and [facility] ESOPHAG OGASTRODUODENOSCOPY 2 Hepatology Tyrell Rodriguez M.D. [address] [place] [phone] Scheduled Procedures Name Priority Associated Diagnoses Date/Time ESOPHAGOGASTRODUODENOSCOPY Cirrhosis Alc oholic (HCC) 03/20/2022 8:45 AM CABLE REPAIRER Hypertension Portal (HCC) documented as of this encounter Procedures Procedure Name Priority Date/Time Associated Diagnosis Comme nts PARACENTESIS Routine 12/21/2021 2:48 PM Results f or this CDT procedure are i n the results section . documented in this encounter Results Paracentesis (12/21/2021 2:48 PM CDT) Narrative Divina Ch, D.Marylou., M.P.H. - 12/02 2:48 PM CDT Divina [...] (COMPLETED) 0500 (Given - Provider: Fili Hunt REric. - Comment: given at the time of [...] documented as of this encounter Care Teams Tomographic Tech Relationship Specialty Start Date End Date Ana Red P.A.-C. PCP - General Internal Medicine 12/01/[address] [place], [place] [address] [address] [facility]- [place] lab 08/25/21 Ervin Schroeder MD Referring Provider Family Medicine 03/24/[address] [place], [place] [address], [place] [phone] documented as of this encounter
--- OUTSIDE RECORDS SUMMARY | 2022-02-16 12:21 | XMS_ITS | Encounter Summary ---
:1990 Author Organization [facility] Address [address] [place] [address] Care Team Providers Name Role Phone Ana Red P.A.-C. Primary Care Provider [phone] Reason for Visit Reason Comments Back Pain Encounter Details Date Type Department Care Team Description 12/19/2021 Nurse Triage Department of [facility] , Back Pain Internal Medicine in [place], [place] [address] [facility] [address] [place], [place] [phone] Social History Tobacco Use Types Packs/Day Years [...] you attend advent or Patient refused 2021 methodist services? Do you belong to any clubs or No 02/10/2022 organizations such as advent groups, unions, fracharming charlie or athletic groups, or school groups? 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 Call your doctor (or GRAIN MANAGER/PA) now or as soon as the office [...] need to be seen. Your doctor (or GRAIN MANAGER/PA) will want to talk with you to [...] acetaminophen, ibuprofen, or naproxen. * They are rjev-zlq-pekneib (OTC) pain drugs. You can buy them [...] Radiology Matthew Jerome 2 Vik RodriguezBGraeme, Lilian [address] [place] [phone] Appointment Gastroenterology and [place], 2 Hepatology Yue Burciaga M.D. [address] [place] [phone] Virtual Visit Transplant LuisNew abdular 2 Tyrell Rodriguez M.D. [address] [place] [phone] Office Visit Gastroenterology and Queenie Matthew 2 Hepatology Tyrell Rodriguez M.D. [address] [place] [phone] Appointment Radiology [facility] 2 YTyrell M.D. [address] [place] [phone] Hospital Gastroenterology and [facility] Cirrhos is Alcoholic (HCC) 2 Encounter Hepatology Tyrell Rodriguez M.D. [address] [place] [phone] Anesthesia Event Gastroenterology and [facility], 2 Hepatology Ervin Burgos M.D. [address] [place] [phone] Surgery Gastroenterology and [facility] ESOPHAG OGASTRODUODENOSCOPY 2 Hepatology Tyrell Rodriguez M.D. 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 PCP - General Internal Medicine 12/01/[address] [place] [address] [place] [phone] [facility]- [place] lab 08/25/21 Ervin Schroeder MD Referring Provider Family Medicine 03/24/[address] [place] [address] [place] [address] documented as of this encounter
--- OUTSIDE RECORDS SUMMARY | 2022-02-16 12:21 | XMS_ITS | Encounter Summary ---
:1990 Author Organization [facility] Address [address] [place] [address] Care Team Providers Name Role Phone Ana Red P.A.-C. Primary Care Provider [phone] Encounter Details Date Type Department Care Team Description 12/15/2021 Lab Department of Adeline Frazier Moderate Or Severe Use Disorder (Dependence) Uncomplicated (HCC); Laboratory Medicine and Lilian Gannon, Ph.D. Cannabis Use Unspecified Uncomplicated Pathology, [place] [address] [place] [address], in [facility] [phone] [place] [address] [place] [address] Social History Tobacco Use Types [...] you attend mormon or Patient refused 2021 shinto services? 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 [address] [place] [address] Virtual Visit Transplant Matthew Jerome 2 YTyrell M.D. [address] [place] [phone] Office Visit Gastroenterology and [facility] 2 Hepatology Tyrell Rodriguez M.D. [address] [place] [phone] Appointment Radiology [facility] 2 Tyrell Rodriguez M.D. [address] [place] [phone] [facility] Gastroenterology and [facility] Cirrhos is Alcoholic (HCC) 2 Encounter Hepatology Tyrell Rodriguez M.D. [address] [place] [phone] Anesthesia Event Gastroenterology and Rl, 2 Hepatology Ervin Burgos M.D. [address] [place] [phone] Surgery Gastroenterology and [facility] ESOPHAG OGASTRODUODENOSCOPY 2 Hepatology Tyrell Rodriguez M.D. [address] [place] [phone] Scheduled Procedures Name Priority Associated Diagnoses Date/Time ESOPHAGOGASTRODUODENOSCOPY Cirrhosis Alc oholic (HCC) 03/20/2022 8:45 AM AIR INTELLIGENCE OFFICER Hypertension Portal (HCC) documented as of [...] (THC) Confirmation, Urine (12/15/2021 5:58 PM CDT) [facility] AnchorFree Method Time Signature Carboxy-THC- by 19 Cutoff: 12/18/2021 [facility] GC/MS 3.0 ng/mL 6:38 AM CDT Carboxy-THC Positive. 12/18/2021 [facility] Interpretation 6:38 AM CDT Comment: ----ADDITIONAL INFORMATION---- This report is intended for use in clini ada monitoring and management of patients. ??It is not intended for use i n employment-related testing. This test was developed and its performa nce characteristics determined by [facility] in a manner consistent with CLIA [...] City/State/ZIP Code Phon e Number [facility] [address] [place], [place] [address] SUPPORT [facility] [place] [address] Laboratory Medicine and Pathology [address] [place] (ABNORMAL) Drug Abuse Survey with Confirmation, Urine (12/15/2021 5:58 PM CDT) [facility] AnchorFree Method Time Signature Alcohol Negative Cutoff: 10 [...] City/State/ZIP Code Phon e Number [facility] [address] [place], [place] [address] [facility] [address] Laboratory Medicine and Pathology [address] [place] Ethyl Glucuronide Confirmation, Random, Urine (12/15/2021 5:51 PM CDT) [facility] Method Time Signature Ethyl Glucuronide Negative Cutoff: 12/17/2021 [facility] Confirmation, U 250 ng/mL 10:34 AM CDT Ethyl Sulfate Negative Cutoff: 12/17/2021 [facility] 100 ng/mL 10:34 AM CDT Ethyl Gluc/Sulfate Negative. 12/17/2021 [facility] Interpretation 10:34 AM CDT Comment: ----ADDITIONAL INFORMATION---- This report is intended for use in clini ada monitoring and management of patients. ??It is not intended for use i n employment-related testing. This test was developed and its performa nce characteristics determined by [facility] in a manner consistent with CLIA [...] City/State/ZIP Code Phon e Number [facility] [address] [place], [place] [address] SUPPORT CENTER [facility] [place] [address] Laboratory Medicine and Pathology [address] [...] documented as of this encounter Care Teams Corking Machine Operator Relationship Specialty Start Date End Date Ana Red P.A.-C. PCP - General Internal Medicine 12/01/[address] [place] [phone] [facility]- [place] lab 08/25/21 Ervin Schroeder MD Referring Provider Family Medicine 03/24/21 [facility] [address] [place] [address] documented as of this encounter
--- OUTSIDE RECORDS SUMMARY | 2022-02-16 12:21 | XMS_ITS | Encounter Summary ---
:1990 Author Organization [facility] Address [address] [place] [address] Care Team Providers Name Role Phone Ana Red P.A.-C. Primary Care Provider [phone] Reason for Visit Reason Comments Back Pain Encounter Details Date Type Department Care Team Description 12/19/2021 - Emergency [facility] Katrin Gonzalez M.D., Ph.D. [address] [place] [phone] Pain Back (Primary 12/20/2021 Emergency Department Migue Garcia Jr., M.D. [address] [place] [phone] Dx) [address] [place] [phone] Social History Tobacco Use Types Packs/Day [...] you attend catholic or Patient refused 2021 episcopalian services? 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 - 12/20/2021 7:29 AM CDT - [...] capsule 0 /06/202112/30/2021 220 (50 mg zinc) capsule mg total) [...] Pain Back Ted Gonzalez M.D., Ph.D. 12/20/21 2230 Harinder Nguyễn M.D. - 12/20/2021 2:40 AM [...] Radiology Matthew Jerome 2 YTyrell M.D. [address] [place] [address] Appointment Gastroenterology and [place], 2 Hepatology Yue Burciaga M.D. [address] [place] [address] Virtual Visit Transplant Matthew Jerome 2 YTyrell M.D. [address] [place] [phone] Office Visit Gastroenterology and Matthew Jerome 2 Hepatology Tyrell Rodriguez M.D. [address] [place] [phone] Appointment Radiology Matthew Jerome 2 YTyrell M.D. [address] [place] [phone] [facility] Cirrhos is Alcoholic (HCC) 2 Encounter Hepatology Tyrell Rodriguez M.D. [address] [place] [phone] Anesthesia Event Gastroenterology and Rl, 2 Hepatology Ervin Burgos M.D. [address] [place] [phone] Surgery Gastroenterology and Matthew Jerome ESOPHAG OGASTRODUODENOSCOPY 2 Hepatology Tyrell Rodriguez, Lilian [address] [place] [phone] Scheduled Procedures Name Priority Associated Diagnoses Date/Time ESOPHAGOGASTRODUODENOSCOPY Cirrhosis Alc oholic (HCC) 03/20/2022 8:45 AM LINTER TENDER Hypertension Portal (HCC) documented as of [...] Dipstick, POCT, Urine (12/20/2021 4:20 AM CDT) [facility] Method Time Signature Glucose, POCT, Negative Negative 12/20/2021 [facility] U mg/dL 4:22 AM CDT Ketone, POCT, Negative Negative 12/20/2021 [facility] U mg/dL 4:22 AM CDT Specific 1.020 1.005 - 12/20/2021 [facility] [place], POCT, 1.030 4:22 AM CDT U Blood, [...] Code Phon e Number POC RST [facility] [address] [place] [address] OUTPATIENT LABS PCED [facility] [place] [address] [facility] [address] Dipstick, Urine [...] [facility] - [address] [place], [place] [address] [facility] [place] [address] Laboratories-[facility] [address] pH, Random, Urine (12/20/2021 4:17 AM CDT) P athologist Signature pH, Random, U 5.5 4.5 - 8.0 12/20/2021 DTL 5:17 AM CDT Specimen Anatomical Collection Method Collection Time Receive d Time (Source) Location / / Volume Laterality Urine 12/20/2021 4:17 AM 2 5:00 CDT AM CDT Harinder Nguyễn M.D. LAB URINE ORDERABLES Performing Organization Address City/[facility]/ZIP Code Phon e Number [facility] - [address] [place], [place] [address] [facility] [place] [address] Osmolality, Urine (12/20/2021 4:17 AM CDT) [...] [facility] [address] [place], [place] [address] [facility] [place] [address] Microscopic Manual (12/20/2021 4:17 AM CDT) [...] [facility] - [address] [place], [place] [address] [facility] [place] [address] Bacterial Culture, Aerobic + Susc, Urine (12/20/2021 4:17 AM CDT) [facility] Method Time Signature Urine Culture No growth 12/21/2021 DTL after 1 day 8:03 AM CDT of incubation. Specimen Anatomical Collection Method Collection Time Receive d Time (Source) Location / / Volume Laterality Urine (Urine, 12/20/2021 4:17 AM 12/21/19 7:48 Midstream) CDT AM CDT Comment: Specimen Source Site: Urine Harinder Nguyễn M.D. LAB MICROBIOLOGY - GENERAL O RDERABLES Performing Organization Address City/[facility] Phon e Number [facility] - [address] [place], [place] [address] [facility] [place] [address] [facility] [address] Urinalysis with Microscopic: Urine, Midstream (12/20/2021 4:17 AM CDT) [facility] Method Time Signature Source Urine, Urine, 12/20/2021 [...] LAB URINE ORDERABLES Performing Organization Address City/[facility] Phon e Number [facility] - [address] [place], [place] [address] [facility] [place] [address] Laboratories-[facility] [address] Lactate (12/20/2021 3:36 AM CDT) P athologist Signature Lactate, P 1.8 0.5 - 2.2 12/20/2021 [facility] mmol/L 3:54 AM CDT Specimen Anatomical Collection Method Collection Time Receive d Time (Source) Location / / Volume Laterality Blood (Blood, 12/20/2021 3:36 AM 12/21/19 3:41 Venous) CDT AM CDT Harinder Nguyễn M.D. LAB BLOOD NON ADD-ON Performing Organization Address City/[facility] Phon e Number [facility] - 200 [place], [place] [address] [facility] [place] [address] Laboratories-[address] Lipase (12/20/2021 3:36 AM CDT) P athologist Signature Lipase, S 36 13 - 60 U/L 12/20/2021 4:45 DTL AM CDT Specimen Anatomical Collection Method Collection Time Receive d Time (Source) Location / / Volume Laterality Blood (Blood, 12/20/2021 3:36 AM 12/21/19 4:00 Venous) CDT AM CDT Harinder Nguyễn M.D. LAB BLOOD ADD-ON Performing Organization Address City/[facility] Phon e Number [facility] - 200 [place], [place] [address] [facility] [place], [place] [phone] [place] [address] (ABNORMAL) Hepatic Function Panel (12/20/2021 3:36 AM [...] LAB BLOOD ADD-ON Performing Organization Address City/[facility] Phon e Number [facility] - [address] [place] [address] Laboratories-[address] hCG (Human Chorionic Gonadotropin), Quantitative, (12/20/2021 3:36 AM CDT) P athologist Signature HCG, 0.5 <5 IU/L 12/20/2021 [facility] Quantitative, 4:31 AM CDT , P Specimen Anatomical Collection Method Collection Time Receive d Time (Source) Location / / Volume Laterality Blood (Blood, 12/20/2021 3:36 AM 12/21/19 3:41 Venous) CDT AM CDT Harinder Nguyễn M.D. LAB BLOOD ADD-ON Performing Organization Address City/[facility] Phon e Number [facility] - 200 [place], [place] [address] [facility] [place] [address] Laboratories-[address] (ABNORMAL) Basic Metabolic Panel (12/20/2021 3:36 [...] CDT eGFR-Black/Afri 81 >=60 12/20/2021 [facility] can Serbian mL/min/BSA 4:08 AM CDT Comment: ----ADDITIONAL INFORMATION---- [...] [facility] [address] [place], [place] [address] [facility] [place] [address] Laboratories-[facility] [address] (ABNORMAL) CBC with Differential, Blood (12/20/2021 3:36 AM CDT) [facility] Method Time Signature Hemoglobin 8.0 (L) [...] [facility] - [facility] [address] [place], [place] [address] [place] [address] Laboratories-[facility] [address] [facility] documented in this encounter Visit [...] as of this encounter Care Teams Building Construction Estimator Relationship Specialty Start Date End Date Ana Red P.A.-C. PCP - General Internal Medicine 12/01/[address] [place] [address] BAYADI [place]MARAZ [phone] [facility]- [facility] 08/25/21 Ervin Schroeder MD Referring Provider Family Medicine 03/24/[address] [place] [address] [place] almaraz [phone] documented as of this encounter
--- OUTSIDE RECORDS SUMMARY | 2022-02-16 12:21 | XMS_ITS | Encounter Summary ---
:1990 Author Organization [facility] Address [address] [place] [address] Care Team Providers Name Role Phone Ana RedASuma-CSuma Primary Care Provider [phone] Reason for Referral Outpatient (Routine) - Authorized Specialty Diagnoses / Procedures Referred By Contact Refer red To Contact [facility] Internal Ana Red [facility] P.A.-CSuma [address] [facility] [place] [address] Referral ID Status Reason Start Date Expiration Date Visits V isits Requested Authorized [id number] Authorized 01/07/2022 01/06/2025 1 1 Reason for Visit Reason Comments Follow-up Cirrhosis and Hepatic Enceph alopathy. Back Pain Back Pain for 3 1/2 weeks. Outpatient (Routine) - Closed Specialty Diagnoses / Procedures Referred By Contact Refer red To Contact [facility] Internal JESSE Arnold [facility] Sunny DSumaOSuma [address] [place] [address] Referral ID Status Reason Start Date Expiration Date Visits Requ ested Visits Authorized [id number] Closed 12/02/2021 12/02/2022 1 1 Encounter Details Date Type Department Care Team Description 01/07/2022 Office Visit Department of Internal [place], Hyper tension Portal (HCC) (Primary Dx); Medicine in [place] .[facility].-[facility]. Cirrhosis Alcoholic (HCC); [place] [address] Ascites; [address] [place], [place] Pancreatitis Chronic (HCC); [place] [address] Pain Low Back Mechanical [address] Social History [...] you attend scientology or Patient refused 2021 religion services? 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. 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 She was a heavy drinking in her 20s. She follows with GI and hepatology in [place]. She gets frequent paracentesis for ascites. 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 She has a paracentesis scheduled for two [...] pap smears. We cannot see records from [place]. Other orders - [facility] Medicine office visit (clinic) - traZODone [...] Radiology Matthew Jerome 2 YVikBLilian Bedolla [address] [place] [phone] Appointment Gastroenterology and Adrianne, 2 Hepatology Yue Burciaga M.D. [address] [place] [phone] Virtual Visit Transplant Matthew Jerome 2 YTyrell M.D. [address] [place] [address] [phone] Office Visit Gastroenterology and [facility] 2 Hepatology Tyrell Rodriguez M.D. [address] [place] [phone]ment [address] [facility] Matthew 2 Tyrell Rodriguez M.D. [address] [place] [phone] [facility] Gastroenterology and [facility] Cirrhos is Alcoholic (HCC) 2 Encounter Hepatology Tyrell Rodriguez M.D. [address] [place] [phone] Anesthesia Event Gastroenterology and Rl, 2 Hepatology Ervin Burgos M.D. [address] [place] [address] [phone] Surgery Gastroenterology and [facility] ESOPHAG OGASTRODUODENOSCOPY 2 Hepatology Tyrell Rodriguez M.D. [address] [place] [phone] Scheduled Procedures Name Priority Associated Diagnoses Date/Time ESOPHAGOGASTRODUODENOSCOPY Cirrhosis Alc oholic (HCC) 03/20/2022 8:45 AM GREASE WORKER Hypertension Portal (HCC) Scheduled Referrals Name Type Priority Associated Diagnoses Order [facility] Internal Outpatient Referral Routine Ex pected: Medicine [...] PCP - General Internal Medicine 12/01/[address] [place] [phone] [facility] [place] [facility] 08/25/21 Ervin Schroeder MD Referring Provider Family Medicine 03/24/[address] [place] [address] documented as of this encounter
--- OUTSIDE RECORDS SUMMARY | 2022-02-16 12:21 | XMS_ITS | Encounter Summary ---
:1990 Author Organization [facility] Address [address] [place] [address] Care Team Providers Name Role Phone Ana Red P.A.-C. Primary Care Provider [phone] Reason for Visit Reason Comments Phone Contact Appointment LABS Encounter Details Date Type Department Care Team Description 12/11/2021 Clinical Ramirez Barajas, Phone Contact; Communication Center for Mitchell Rowland (Jagdeep HERRON) Transplantation and Lilian, Ph.D. Clinical [facility] [address] [place] [address] [address] [facility] [phone] Social History Tobacco Use Types Packs/Day Years [...] you attend faith or Patient refused 2021 jain services? 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 Thank you in advance documented in this encounter Plan of Treatment Upcoming Encounters Date Type Specialty Care Team Description Telemedicine Transplant 2 Appointment Radiology Matthew Jerome 2 YTyrell M.D. [address] [place] [phone] Appointment Gastroenterology demian Silver, 2 Hepatology Yue Burciaga M.D. [address] [place] [phone] Virtual Visit Transplant LuisMatthew abdul 2 YTyrell M.D. [address] [place] [phone] Office Visit Gastroenterology and Matthew Jerome 2 Hepatology Tyrell Rodriguez M.D. [address] [place] [phone] Appointment Radiology Matthew Jerome 2 YTyrell M.D. [address] [place] [phone] Hospital Gastroenterology and Matthew Jerome Cirrhos is Alcoholic (HCC) 2 Encounter Hepatology Tyrell Rodriguez M.D. [address] [place] [phone] Anesthesia Event Gastroenterology and Rl, 2 Hepatology Ervin Burgos M.D. [address] [place] [phone] Surgery Gastroenterology and Matthew Jerome ESOPHAG OGASTRODUODENOSCOPY 2 Hepatology Tyrell Rodriguez M.D. [address] [place] [phone] Scheduled Procedures Name Priority Associated Diagnoses Date/Time ESOPHAGOGASTRODUODENOSCOPY Cirrhosis Alc oholic (HCC) 03/20/2022 8:45 AM START UP SPECIALIST Hypertension Portal (HCC) documented as of this encounter Visit Diagnoses Not on filedocumented in this encounter Additional Health Concerns Assessment Noted Time PHQ-9 Depression Total Score: 10 10/06/2021 5:00 PM CD T documented as of this encounter Care Teams Safety Intern Relationship Specialty Start Date End Date Ana Red P.A.-C. PCP - General Internal Medicine 12/01/[address] [place] [phone] [facility] [place] lab 08/25/21 Ervin Schroeder MD Referring Provider Family Medicine 03/24/[address] [place] [address] documented as of this encounter
--- OUTSIDE RECORDS SUMMARY | 2022-02-16 12:21 | XMS_ITS | Encounter Summary ---
:1990 Author Organization [facility] Address [address] [place] [address] Care Team Providers Name Role Phone Ana Red P.A.-C. Primary Care Provider [phone] Encounter Details Date Type Department Care Team Description 12/27/2021 Patient Self-Triage CONNECTED CARE Symptom Forensic Dna Analyst, Provider Social History Tobacco Use Types Packs/Day [...] you attend scientologist or Patient refused 2021 latter-day services? 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 [address] [place] [phone] Virtual Visit Transplant Matthew Jerome 2 YTyrell M.D. [address] [place] [address] [phone] Office Visit Gastroenterology and Matthew Jerome 2 Hepatology Tyrell Rodriguez M.D. [address] [place] [address] [phone] Appointment Radiology Queenie Matthew 2 YTyrell, Lilian [address] [place] [address] [phone] [facility] Cirrhos is Alcoholic (HCC) 2 Encounter Hepatology Tyrell Rodriguez M.D. [address] [place] [address] [phone] Anesthesia Event Gastroenterology and [facility], 2 Hepatology Ervin Burgos M.D. [address] [place] [phone] Surgery Gastroenterology and [facility] ESOPHAG OGASTRODUODENOSCOPY 2 Hepatology Tyrell Rodriguez M.D. [address] [place] [address] [phone] Scheduled Procedures Name Priority Associated Diagnoses Date/Time ESOPHAGOGASTRODUODENOSCOPY Cirrhosis Alc oholic (HCC) 03/20/2022 8:45 AM FRAME STRIPPER Hypertension Portal (HCC) documented as of this encounter Visit Diagnoses Not on filedocumented in this encounter Additional Health Concerns Assessment Noted Time PHQ-9 Depression Total Score: 10 10/06/2021 5:00 PM CD T documented as of this encounter Care Teams Sociology Research Assistant Relationship Specialty Start Date End Date Ana Red P.A.-C. PCP - General Internal Medicine 12/01/[address] [place] [address] ADI Chua [phone] [facility]- [place] lab 08/25/21 Ervin Schroeder MD Referring Provider Family Medicine 03/24/[address] [place] [address] ADI Mejía [phone] (work) documented as of this encounter
--- OUTSIDE RECORDS SUMMARY | 2022-02-16 12:21 | XMS_ITS | Encounter Summary ---
:1990 Author Organization [facility] Address [address] [place] [address] Care Team Providers Name Role Phone Ana Red P.A.-C. Primary Care Provider [phone] Reason for Referral Outpatient (Routine) - Authorized Specialty Diagnoses / Procedures Referred By Contact Refer red To Contact Diagnoses Ascites Chronic Matthew Jerome M.B.B.S., [facility] Procedures US Paracentesis with Imaging Guidance MJules [address] [place] [phone] Referral ID Status Reason Start Date Expiration Date Visits V isits Requested Authorized [id number] Authorized 11/19/2021 11/19/2022 1 1 Outpatient (Routine) - Authorized Specialty Diagnoses / Procedures Referred By Contact Refer red To Contact Diagnoses Ascites Chronic Matthew Jerome M.B.BSumaSSuma, [facility] Procedures US Paracentesis with Imaging Guidance M.DSuma [address] [place] [phone] Referral ID Status Reason Start Date Expiration Date Visits V isits Requested Authorized [id number] Authorized 11/19/2021 11/19/2022 1 1 Outpatient (Routine) - Authorized Specialty Diagnoses / Procedures Referred By Contact Refer red To Contact Diagnoses Ascites Chronic Matthew Jerome M.B.B.S., [facility] Procedures US Paracentesis with Imaging Guidance M.D. [address] [place] [phone] Referral ID Status Reason Start Date Expiration Date Visits V isits Requested Authorized [id number] Authorized 11/19/2021 11/19/2022 1 1 Outpatient (Routine) - Closed Specialty Diagnoses / Procedures Referred By Contact Refer red To Contact Diagnoses Ascites Chronic Matthew Jerome M.B.B.S., [facility] Procedures US Paracentesis with Imaging Guidance M.DSuma [address] [place] [phone] Referral ID Status Reason Start Date Expiration Date Visits Requ ested Visits Authorized [id number] Closed 11/19/2021 11/19/2022 1 1 Encounter Details Date Type Department Care Team Description 01/06/2022 Clinical Communication Department of Felicita Spicer Gastroenterology in [place], [place] [phone] [place] [phone] Social History Tobacco Use Types Packs/Day [...] Date Recorded 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 [address] [place] [phone] Appointment Gastroenterology and [place], 2 Hepatology Yue Burciaga M.D. [address] [place] [phone] Virtual Visit Transplant Matthew Jerome 2 Tyrell Rodriguez M.D. [address] [place] [address] [phone] Office Visit Gastroenterology and Matthew Jerome 2 Hepatology Tyrell Rodriguez M.D. [address] [place] [address] [phone] Appointment Radiology Matthew Jerome 2 Tyrell Rodriguez M.D. [address] [place] [address] [phone] Hospital Gastroenterology and Matthew Jerome Cirrhos is Alcoholic (HCC) 2 Encounter Hepatology Tyrell Rodriguez M.D. [address] [place] [address] [phone] Anesthesia Event Gastroenterology and Rl, 2 Hepatology Ervin Burgos M.D. [address] [place] [address] [phone] Surgery Gastroenterology and Mousa, Matthew ESOPHAG OGASTRODUODENOSCOPY 2 Hepatology Tyrell Rodriguez M.D. [address] [place] [phone] Scheduled Orders Name Type Priority Associated [...] Alc oholic (HCC) 03/20/2022 8:45 AM ASSISTANT CASE MANAGER Hypertension Portal (HCC) documented as [...] ordering provider request. EP Matthew Santillan M.D. [facility] [place]ED[place] documented in this encounter Visit [...] documented as of this encounter Care Teams Camp Maintenance Supervisor Relationship Specialty Start Date End Date Ana Red P.A.-C. PCP - General Internal Medicine 12/01/[address] [place] [phone] [facility]- [place] lab 08/25/21 Ervin Schroeder MD Referring Provider Family Medicine 03/24/[address] [place] [address] [phone] documented as of this encounter
--- OUTSIDE RECORDS SUMMARY | 2022-02-16 12:21 | XMS_ITS | Encounter Summary ---
:1990 Author Organization [facility] Address [address] [place] [address] Care Team Providers Name Role Phone Ana Red P.A.-C. Primary Care Provider [phone] Encounter Details Date Type Department Care Team Description 12/11/2021 Clinical Communication Department of Felicita Spicer Gastroenterology in [place], [place] [phone] [facility] ([place]) [place] [phone] Social History Tobacco Use Types Packs/Day [...] you attend sabianist or Patient refused 2021 jehovah's witness services? Do you belong to any clubs or No 02/10/2022 organizations such as sabianist groups, unions, fraQuadWrangle or athletic groups, or school groups? 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 - 12/11/2021 10:51 AM CDT Marketing Development Representative called and spoke with Radiology nursing department [...] seems they used it for her in [facility] last week and it worked very well for her. Otherwise she has significant anxiety from the procedure. Please let me know Thank you OM documented in this encounter Plan of Treatment Upcoming Encounters Date Type Specialty Care Team Description Telemedicine Transplant 2 Appointment Radiology Matthew Jerome 2, M.B.B.S., M.D. [address] [place] [address] [phone] Appointment Gastroenterology and Adrianne, 2 Hepatology Yue Burciaga M.D. [address] [place] [phone] Virtual Visit Transplant Matthew Jerome 2, M.B.B.S., M.D. [address] [place] [address] [phone] Office Visit Gastroenterology and Matthew Jerome 2 Hepatology Tyrell Rodriguez M.D. [address] [place] [address] [phone] Appointment Radiology Matthew Jerome 2, M.B.B.S., M.D. [address] [place] [address] [phone] Hospital Gastroenterology and [facility], Matthew Cirrhos is Alcoholic (HCC) 2 Encounter Hepatology Tyrell Rodriguez, Lilian [address] [place] [phone] Anesthesia Event Gastroenterology and Rl, 2 Hepatology Ervin Burgos M.D. [address] [place] [address] [phone] Surgery Gastroenterology and [facility] ESOPHAG OGASTRODUODENOSCOPY 2 Hepatology Tyrell Rodriguez M.D. [address] [place] [phone] Scheduled Procedures Name Priority Associated Diagnoses Date/Time ESOPHAGOGASTRODUODENOSCOPY Cirrhosis Alc oholic (HCC) 03/20/2022 8:45 AM RECORDS SUPERVISOR Hypertension Portal (HCC) documented as of this encounter Visit Diagnoses Diagnosis Cirrhosis Alcoholic (HCC) Hypertension Portal (HCC) Ascites Chronic - Primary Cirrhosis Alcoholic (HCC) Hypertension Portal (HCC) documented in this encounter Additional Health Concerns Assessment Noted Time PHQ-9 Depression Total Score: 10 10/06/2021 5:00 PM CD T documented as of this encounter Care Teams Instructor Physical Education Relationship Specialty Start Date End Date Ana Red P.A.-C. PCP - General Internal Medicine 12/01/[address] [place] [phone] [facility]- [place] lab 08/25/21 Ervni Schroeder MD Referring Provider Family Medicine 03/24/[address] [place] [phone] documented as of this encounter
--- OUTSIDE RECORDS SUMMARY | 2022-02-16 12:22 | XMS_ITS | Encounter Summary ---
:1990 Author Organization [facility] Address [address] [place] [address] Care Team Providers Name Role Phone Ana Red P.A.-C. Primary Care Provider [phone] Reason for Visit Reason Comments Post Hospital Follow-up Encounter Details Date Type Department Care Team Description 12/02/2021 Clinical Communication Department of [facility] Internal Ciara Johnson RSumaNSuma Follow-up Medicine in [address] [place] [phone] [address] [facility] [phone] [place], [place] (Work) [phone] Social History Tobacco Use [...] you attend adventism or Patient refused 2021 oriental orthodox services? 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 [address] [place] [phone] Virtual Visit Transplant New Jeromear 2 Joshua RodriguezB.B.Lilian [place] [address] [place] [phone] Office Visit Gastroenterology and LuisMatthew abdul 2 Hepatology Joshua RodriguezB.B.SLilian Moise [address] [place] [phone] Appointment Radiology LuisMatthew abdul 2 YJoshuaB.B.SLilian Moise [address] [place] [phone] Hospital Gastroenterology and LuisMatthew abdul Cirrhos is Alcoholic (HCC) 2 Encounter Hepatology Joshua RodriguezB.B.SLilian Moise [address] [place] [phone] Anesthesia Event Gastroenterology and Rl, 2 Hepatology Ervin Burgos M.D. [address] [place] [address] [phone] Surgery Gastroenterology and Mousa, Matthew ESOPHAG OGASTRODUODENOSCOPY 2 Hepatology Tyrell Rodriguez M.D. [facility] [place] [phone] Scheduled Procedures Name Priority Associated Diagnoses Date/Time ESOPHAGOGASTRODUODENOSCOPY Cirrhosis Alc oholic (HCC) 03/20/2022 8:45 AM TAX CONSULTANT Hypertension Portal (HCC) documented as of this encounter Visit Diagnoses Not on filedocumented in this encounter Additional Health Concerns Assessment Noted Time PHQ-9 Depression Total Score: 10 10/06/2021 5:00 PM CD T documented as of this encounter Care Teams Manager Harbor Relationship Specialty Start Date End Date Ana Red P.A.-C. PCP - General Internal Medicine 12/01/[address] [place] [phone] [facility]- [place] lab 08/25/21 Ervin Schroeder MD Referring Provider Family Medicine 03/24/[address] [place] [phone] documented as of this encounter
--- OUTSIDE RECORDS SUMMARY | 2022-02-16 12:22 | XMS_ITS | Encounter Summary ---
:1990 Author Organization [facility] Address [address] [place] [address] Care Team Providers Name Role Phone Ana Red P.A.-C. Primary Care Provider [phone] Reason for Visit Reason Comments BIANKA / Appeal Letter Encounter Details Date Type Department Care Team Description 12/03/2021 Clinical Communication Department of [facility], [facility]ANKA / Appeal Letter [facility] Internal Lilian Gee, Medicine in [facility], [address] [place], [place] 300 [facility] [phone] ADI PANIAGUA [phone] (Work) [phone] Social History Tobacco Use Types Packs/Day Years [...] you attend zoroastrian or Patient refused 2021 druze services? 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 Gerard Andino's 12/03 appeal letter was faxed to [phone], confirmation was received documented in this encounter Plan of Treatment Upcoming Encounters Date Type Specialty Care Team Description Telemedicine Transplant 2 Appointment Radiology Matthew Jerome 2 Y, Tyrell, M.Slick. [address] [place] [phone] Appointment Gastroenterology and Adrianne, 2 Hepatology Yue Burciaga M.D. [address] [place] [phone] Virtual Visit Transplant LuisMatthew abdul 2 Tyrell Rodriguez M.D. [address] [place] [phone] Office Visit Gastroenterology and Matthew Jerome 2 Hepatology Tyrell Rodriguez M.D. [address] [place] [phone] Appointment Radiology QueenieMatthew 2 Tyrell Rodriguez M.D. [address] [place] [phone] Hospital Gastroenterology and Queenie Matthew Cirrhos is Alcoholic (HCC) 2 Encounter Hepatology Tyrell Rodriguez M.D. [address] [place] [phone] Anesthesia Event Gastroenterology and Rl, 2 Hepatology Ervin Burgos M.D. [address] [place] [address] [phone] Surgery Gastroenterology and Queenie Matthew ESOPHAG OGASTRODUODENOSCOPY 2 Hepatology Vik RodriguezBLilian Bedolla [address] [place] [phone] Scheduled Procedures Name Priority Associated Diagnoses Date/Time ESOPHAGOGASTRODUODENOSCOPY Cirrhosis Alc oholic (HCC) 03/20/2022 8:45 AM SENIOR CONTROL SYSTEMS ENGINEER Hypertension Portal (HCC) documented as of this encounter Visit Diagnoses Not on filedocumented in this encounter Additional Health Concerns Assessment Noted Time PHQ-9 Depression Total Score: 10 10/06/2021 5:00 PM CD T documented as of this encounter Care Teams Compensation Analyst Relationship Specialty Start Date End Date Ana Red P.A.-C. PCP - General Internal Medicine 12/01/[address] [place] [phone] [facility] lab 08/25/21 Ervin Schroeder MD Referring Provider Family Medicine 03/24/[address] [place] [phone] documented as of this encounter
--- OUTSIDE RECORDS SUMMARY | 2022-02-16 12:22 | XMS_ITS | Encounter Summary ---
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 [address] [place] [phone] Virtual Visit Transplant Matthew Jerome 2 YTyrell M.D. [address] [place] [phone] Office Visit Gastroenterology and Matthew Jerome 2 Hepatology Tyrell Rodriguez M.D. [address] [place] [phone] Appointment Radiology Matthew Jerome 2 Tyrell Rodriguez M.D. [address] [place] [phone] Hospital Gastroenterology and Mdchantell Matthew Cirrhos is Alcoholic (HCC) 2 Encounter Hepatology Tyrell Rodriguez M.D. [address] [place] [phone] Anesthesia Event Gastroenterology and [facility], 2 Hepatology Ervin Burgos M.D. [address] [place] [phone] Surgery Gastroenterology and Queenie Matthew ESOPHAG OGASTRODUODENOSCOPY 2 Hepatology Tyrell Rodriguez, Lilian [address] [place] [phone] Scheduled Procedures Name Priority Associated Diagnoses Date/Time ESOPHAGOGASTRODUODENOSCOPY Cirrhosis Alc oholic (HCC) 03/20/2022 8:45 AM POOL ATTENDANT Hypertension Portal (HCC) documented as of this encounter Visit Diagnoses Not on filedocumented in this encounter Additional Health Concerns Assessment Noted Time PHQ-9 Depression Total Score: 10 10/06/2021 5:00 PM CD T documented as of this encounter Care Teams Medical Recruiter Relationship Specialty Start Date End Date Elsewhere, Pcp PCP - General Family Medicine 03/10/20 11/30/21 [facility] [place] [facility] 08/25/21 Ervin Schroeder MD Referring Provider Family Medicine 03/24/[address] [place] [address] documented as of this encounter
--- OUTSIDE RECORDS SUMMARY | 2022-02-16 12:22 | XMS_ITS | Encounter Summary ---
:1990 Author Organization [facility] Address [address] [place] [address] Care Team Providers Name Role Phone Ana Red P.A.-C. Primary Care Provider [phone] Encounter Details Date Type Department Care Team Description 11/26/2021 Clinical Communication Division [facility] [address] [place] [address] [place] [phone] [place], [place] [phone] (Work) [phone] Social History Tobacco Use Types Packs/Day Years [...] you attend sabianism or Patient refused 2021 christianity services? 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 [address] [place] [phone] Virtual Visit Transplant Matthew Jerome 2 Y, Tyrell, Lilian [address] [place] [phone] Office Visit Gastroenterology and [facility] 2 Hepatology Tyrell Rodriguez M.D. [address] [place] [phone] Appointment Radiology [facility] 2 YTyrell M.D. [address] [place] [phone] Hospital Gastroenterology and [facility] Cirrhos is Alcoholic (HCC) 2 Encounter Hepatology Tyrell Rodriguez M.D. [address] [place] [phone] Anesthesia Event Gastroenterology and Rl, 2 Hepatology Ervin Burgos M.D. [address] [place] [phone] Surgery Gastroenterology and [facility] ESOPHAG OGASTRODUODENOSCOPY 2 Hepatology Tyrell Rodriguez M.D. [address] [place] [phone] Scheduled Procedures Name Priority Associated Diagnoses Date/Time ESOPHAGOGASTRODUODENOSCOPY Cirrhosis Alc oholic (HCC) 03/20/2022 8:45 AM FIBERGLASS LAMINATOR Hypertension Portal (HCC) documented as of this [...] CDT eGFR-Black/Afri >90 >=60 12/02/2021 OWAT can Libyan mL/min/BSA 6:46 PM CDT Comment: ----ADDITIONAL INFORMATION---- [...] Address City/State/ZIP Code Phon e Number [facility]- [address] [place] [address] [facility] [place] [address] System in [place] [address] documented in this encounter Visit Diagnoses Diagnosis Change Mental Status - Primary Cirrhosis Alcoholic (HCC) Cirrhosis Alcoholic (HCC) Hypertension Portal (HCC) documented in this encounter Additional Health Concerns Assessment Noted Time PHQ-9 Depression Total Score: 10 10/06/2021 5:00 PM CD T documented as of this encounter Care Teams Crop And Soil Scientist Relationship Specialty Start Date End Date Ana Red P.A.-C. PCP - General Internal Medicine 12/01/[address] [place], [place] [address], [place] [phone] [facility] 08/25/21 Ervin Schroeder MD Referring Provider Family Medicine 03/24/[address] [place] [address] ADI Mejía [phone] documented as of this encounter
--- OUTSIDE RECORDS SUMMARY | 2022-02-16 12:22 | XMS_ITS | Encounter Summary ---
:[address] Author [address] [facility] Address [address] [place] [address] Care Team Providers Name Role Phone Ana Red P.A.-C. Primary Care Provider [phone] Encounter Details Date Type Department Care Team Description 12/02/2021 Clinical Communication Department of Internal [facility] in [facility], D[facility] [address] [place] [phone] Social History Tobacco Use Types Packs/Day Years [...] attend jehovah's witness or Patient refused 2021 islam services? 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 Telephone Encounter - Sunny Arnold D.O. - [...] Radiology Matthew Jerome 2 YTyrell M.D. [address] [place] [phone] Appointment Gastroenterology and Adrianne, 2 Hepatology Yue Burciaga M.D. [address] [place] [phone] Virtual Visit Transplant Matthew Jerome 2 Tyrell Rodriguez M.D. [address] [place] [phone] Office Visit Gastroenterology and Matthew Jerome 2 Hepatology Tyrell Rodriguez M.D. [address] [place] [phone] Appointment Radiology Matthew Jerome 2 Tyrell Rodriguez M.D. [address] [place] [phone] Hospital Gastroenterology and Matthew Jerome Cirrhos is Alcoholic (HCC) 2 Encounter Hepatology Tyrell Rodriguez M.D. [address] [place] [phone] Anesthesia Event Gastroenterology and Rl, 2 Hepatology Ervin Burgos M.D. [address] [place] [phone] Surgery Gastroenterology and Mousa, Matthew ESOPHAG OGASTRODUODENOSCOPY 2 Hepatology Tyrell Rodriguez M.D. [address] [place] [phone] Scheduled Procedures Name Priority Associated Diagnoses Date/Time ESOPHAGOGASTRODUODENOSCOPY Cirrhosis Alc oholic (HCC) 03/20/2022 8:45 AM LAB TECHNICIAN Hypertension Portal (HCC) documented as of this encounter Visit Diagnoses Not on filedocumented in this encounter Additional Health Concerns Assessment Noted Time PHQ-9 Depression Total Score: 10 10/06/2021 5:00 PM CD T documented as of this encounter Care Teams Cook Helper Relationship Specialty Start Date End Date Ana Red P.A.-C. PCP - General Internal Medicine 12/01/[address] [place] [phone] [facility] [place] [facility] 08/25/21 Ervin Schroeder MD Referring Provider Family Medicine 03/24/[address] [place] [address] documented as of this encounter
--- OUTSIDE RECORDS SUMMARY | 2022-02-16 12:22 | XMS_ITS | Encounter Summary ---
:1990 Author Organization [facility] Address [address] [place] [address] Care Team Providers Name Role Phone Ana Red P.A.-C. Primary Care Provider [phone] Encounter Details Date Type Department Care Team Description 12/02/2021 Hospital Encounter Department of [facility] Cirrhosi s Alcoholic (HCC); Laboratory Medicine Y, M.B.B.S., Hyperten neptali Portal (HCC); in [place] Thrombocytopenia (HCC); [address] Abnormal Liver Function Test; [address] [place], [place] Change Mental Status ADI PANIAGUA [phone] Social History Tobacco Use Types Packs/Day [...] you attend quaker or Patient refused 2021 pentecostal services? Do you belong to any clubs or No 02/10/2022 organizations such as quaker groups, unions, fraYCD Multimedia or athletic groups, or school groups? 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 [address] [place] [phone] Virtual Visit Transplant Matthew Jerome 2 YVikBLilian Bedolla [address] [place] [address] [phone] Office Visit Gastroenterology and Matthew Jerome 2 Hepatology Joshua RodriguezBSumaBLilian Bedolla [address] [place] [address] [phone] Appointment Radiology Matthew Jerome 2 YJoshuaBSumaBLilian Bedolla [address] [place] [phone] Hospital Gastroenterology and Queenie Matthew Cirrhos is Alcoholic (HCC) 2 Encounter Hepatology Joshua RodriguezB.BLilian Bedolla [address] [place] [phone] Anesthesia Event Gastroenterology and Rl, [place] Hepatology Ervin Burgos M.D. [address] [place] [phone] Surgery Gastroenterology and Matthew Jerome ESOPHAG OGASTRODUODENOSCOPY 2 Hepatology Tyrell Rodriguze M.D. [address] [place] [phone] Scheduled Procedures Name Priority Associated Diagnoses Date/Time ESOPHAGOGASTRODUODENOSCOPY Cirrhosis Alc oholic (HCC) 03/20/2022 8:45 AM SENIOR PAYROLL MANAGER Hypertension Portal (HCC) documented as of [...] CDT eGFR-Black/Afri >90 >=60 12/02/2021 OWAT can Surinamese mL/min/BSA 6:46 PM CDT Comment: ----ADDITIONAL INFORMATION---- [...] [facility]/ZIP Code Phon e Number [facility]- [address] [place] [address] [place] [address] System in [place] [address] [place] [address] (ABNORMAL) Bilirubin, Total (12/02/2021 4:14 PM CDT) [...] Code Phon e Number [facility]- [address] [address] [facility] [place] [address] System in [place] [address] (ABNORMAL) Prothrombin Time (PT) (12/02/2021 4:14 [...] Phon e Number [facility]- [address] [place] [address] [place] [address] System in [place] [address] [facility] documented in this encounter Visit Diagnoses Diagnosis Cirrhosis Alcoholic (HCC) Hypertension Portal (HCC) Thrombocytopenia (HCC) Abnormal Liver Function Test Change Mental Status Cirrhosis Alcoholic (HCC) Cirrhosis Alcoholic (HCC) Hypertension Portal (HCC) documented in this encounter Additional Health Concerns Assessment Noted Time PHQ-9 Depression Total Score: 10 10/06/2021 5:00 PM CD T documented as of this encounter Care Teams Stained Glass Installer Relationship Specialty Start Date End Date Ana Red P.A.-C. PCP - General Internal Medicine 12/01/[address] [place] [phone] [facility]- [place] [facility] 08/25/21 Ervin Schroeder MD Referring Provider Family Medicine 03/24/211979 [address] [place] [address] documented as of this encounter
--- OUTSIDE RECORDS SUMMARY | 2022-02-16 12:22 | XMS_ITS | Encounter Summary ---
:1990 Author Organization [facility] Address [address] [place] [address] Care Team Providers Name Role Phone Ana Red P.A.-C. Primary Care Provider [phone] Encounter Details Date Type Department Care Team Description 12/02/2021 Orders Only [facility] PCP [facility] MNT Ana Red P.ASuma-C. 300 [facility] [place] [phone] (Wo rk) Social History Tobacco [...] you attend hindu or Patient refused 2021 hinduism services? 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 [address] [place] [phone] Virtual Visit Transplant Matthew Jerome 2 YTyrell M.D. [address] [place] [phone] Office Visit Gastroenterology and Kychantell Matthew 2 Hepatology Tyrell Rodriguez M.D. [address] [place] [phone] Appointment Radiology Kychantell Matthew 2 YTyrell M.D. [address] [place] [phone] Hospital Gastroenterology and [facility] Cirrhos is Alcoholic (HCC) 2 Encounter Hepatology yTrell Rodriguez M.D. [address] [place] [phone] Anesthesia Event Gastroenterology and Rl, 2 Hepatology Ervin Burgos M.D. [address] [place] [phone] Surgery Gastroenterology and [facility] ESOPHAG OGASTRODUODENOSCOPY 2 Hepatology Tyrell Rodriguez M.D. [address] [place] [phone] Scheduled Procedures Name Priority Associated Diagnoses Date/Time ESOPHAGOGASTRODUODENOSCOPY Cirrhosis Alc oholic (HCC) 03/20/2022 8:45 AM PLANT SCIENTIST Hypertension Portal (HCC) documented as of this encounter Visit Diagnoses Not on filedocumented in this encounter Additional Health Concerns Assessment Noted Time PHQ-9 Depression Total Score: 10 10/06/2021 5:00 PM CD T documented as of this encounter Care Teams Medical Laboratory Technical Officer Relationship Specialty Start Date End Date Ana Red P.A.-C. PCP - General Internal Medicine 12/01/[address] [place] [address] [place] [phone] [facility] 08/25/21 Ervin Schroeder MD Referring Provider Family Medicine 03/24/[address] [place] [address] documented as of this encounter
--- OUTSIDE RECORDS SUMMARY | 2022-02-16 12:22 | XMS_ITS | Encounter Summary ---
:1990 Author Organization [facility] Address [address] [place] [address] Care Team Providers Name Role Phone Ana Red P.A.-C. Primary Care Provider [phone] Reason for Referral Specialty Diagnoses / Procedures Referred By Contact Refer red To Contact Ana Red P .A.-C. [facility] Region [address] [place] [address] Referral ID Status Reason Start Date Expiration Date Visits Requ ested Visits Authorized Encounter Details Date Type Department Care Team Description 12/03/2021 Orders Only [facility] PCP [facility] MNT Ana Red P.A.-C. 300 [place], [place] [phone] (Wo rk) Social History [...] you attend episcopalian or Patient refused 2021 muslim services? Do [...] at Date Recorded Female 04/12/2021 7:39 PM ADOBE ARCHITECT documented as of this encounter Plan of Treatment Upcoming Encounters Date Type Specialty Care Team Description Telemedicine Transplant 2 Appointment Radiology Matthew Jerome 2 Y, Lilian Santillan [address] [place] [phone] Appointment Gastroenterology demian Silver, 2 Hepatology Yue Burciaga M.D. [address] [place] [phone] Virtual Visit Transplant Matthew Jerome 2 Tyrell Rodriguez M.D. [address] [place] [phone] Office Visit Gastroenterology and Matthew Jerome 2 Hepatology Tyrell Rodriguez M.D. [address] [place] [phone] Appointment Radiology LuisMatthew abdul 2 Tyrell Rodriguez M.D. [address] [place] [phone] Hospital Gastroenterology and Matthew Jerome Cirrhos is Alcoholic (HCC) 2 Encounter Hepatology Tyrell Rodriguez M.D. [address] [place] [phone] Anesthesia Event Gastroenterology and Rl, 2 Hepatology Ervin Burgos M.D. [address] [place] [phone] Surgery Gastroenterology and Matthew Jerome ESOPHAG OGASTRODUODENOSCOPY 2 Hepatology Joshua RodriguezBSumaBLilian Bedolla [address] [place] [phone] Scheduled Procedures Name Priority Associated Diagnoses Date/Time ESOPHAGOGASTRODUODENOSCOPY Cirrhosis Alc oholic (HCC) 03/20/2022 8:45 AM ADOBE ARCHITECT Hypertension Portal (HCC) Scheduled Referrals Name Type Priority Associated Order Schedule Diagnoses Covid immunization Outpatient Referral Routine Ex pected: office visit 12/03/2021 Immuno/Booster (Approximate) , Expires: 12/03/2022 documented as of this encounter Visit Diagnoses Not on filedocumented in this encounter Additional Health Concerns Assessment Noted Time PHQ-9 Depression Total Score: 10 10/06/2021 5:00 PM CD T documented as of this encounter Care Teams Sand Mixer Relationship Specialty Start Date End Date Ana Red P.A.-C. PCP - General Internal Medicine 12/01/[address] [place] [phone] [facility] [place] [facility] 08/25/21 Ervin Schroeder MD Referring Provider Family Medicine 03/24/[address] [place] [address] documented as of this encounter
--- OUTSIDE RECORDS SUMMARY | 2022-02-16 12:22 | XMS_ITS | Encounter Summary ---
:1990 Author Organization [facility] Address [address] [place] [address] Care Team Providers Name Role Phone Ana Red P.A.-C. Primary Care Provider [phone] Encounter Details Date Type Department Care Team Description 12/02/2021 Clinical Communication Division of [facility] Andino, Internal Medicine, M.D., [facility] [address] [place] [address] [place] [phone] [place], [place] [phone] (Work) [phone] Social History Tobacco Use Types Packs/Day Years [...] you attend druze or Patient refused 2021 yarsani services? 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 [address] [place] [phone] Virtual Visit Transplant Matthew Jerome 2 YKishore.B.SSuma, Lilian [address] [place] [address] [phone] Office Visit Gastroenterology and [facility] Matthew 2 Hepatology Tyrell Rodriguez M.D. [address] [place] [address] [phone] Appointment Radiology Luischantell Matthew 2 YTyrell M.D. [address] [place] [address] [phone]ology and [facility] Cirrhos is Alcoholic (HCC) 2 Encounter Hepatology Tyrell Rodriguez M.D. [address] [place] [address] [phone] Anesthesia Event Gastroenterology and Rl, 2 Hepatology Ervin Burgos M.D. [address] [place] [phone] Surgery Gastroenterology and [facility] ESOPHAG OGASTRODUODENOSCOPY 2 Hepatology Tyrell Rodriguez M.D. [address] [place] [phone] Scheduled Procedures Name Priority Associated Diagnoses Date/Time ESOPHAGOGASTRODUODENOSCOPY Cirrhosis Alc oholic (HCC) 03/20/2022 8:45 AM FOREST FIRE PREVENTION MANAGER Hypertension Portal (HCC) documented as of this encounter Visit Diagnoses Not on filedocumented in this encounter Additional Health Concerns Assessment Noted Time PHQ-9 Depression Total Score: 10 10/06/2021 5:00 PM CD T documented as of this encounter Care Teams Deck Molder Relationship Specialty Start Date End Date Ana Red P.A.-C. PCP - General Internal Medicine 12/01/[address] [place] [address] ADI Chua [phone] [facility] 08/25/21 Ervin Schroeder MD Referring Provider Family Medicine 03/24/[address] [place] [address] documented as of this encounter
--- OUTSIDE RECORDS SUMMARY | 2022-02-16 12:22 | XMS_ITS | Encounter Summary ---
:1990 Author Organization [facility] Address [address] [place] [address] Care Team Providers Name Role Phone Ana Red P.A.-C. Primary Care Provider [phone] Encounter Details Date Type Department Care Team Description 11/26/2021 [facility] Dena Schroeder tohepatidane Non Alcoholic (Primary Dx); AND CLINICS Ervin Schaefer M.D. Unspecified Cirrhosis Of Liver (HCC) [address] [place] [address] [phone] Social History Tobacco Use Types Packs/Day Years [...] you attend mandaeism or Patient refused 2021 bahai services? 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 [address] [place] [phone] Virtual Visit Transplant Matthew Jerome 2 YKishore.B.SSuma, Lilian [address] [place] [phone] Office Visit Gastroenterology and Ilchantell Matthew 2 Hepatology Tyrell Rodriguez M.D. [address] [place] [phone] Appointment Radiology Luischantell Matthew 2 YTyrell M.D. [address] [place] [address] [phone] Hospital Gastroenterology and [facility] Cirrhos is Alcoholic (HCC) 2 Encounter Hepatology Tyrell Rodriguez M.D. [address] [place] [phone] Anesthesia Event Gastroenterology and Rl, 2 Hepatology Ervin Burgos M.D. [address] [place] [phone] Surgery Gastroenterology and [facility] ESOPHAG OGASTRODUODENOSCOPY 2 Hepatology Tyrell Rodriguez M.D. [address] [place] [phone] Scheduled Procedures Name Priority Associated Diagnoses Date/Time ESOPHAGOGASTRODUODENOSCOPY Cirrhosis Alc oholic (HCC) 03/20/2022 8:45 AM UNIONMELT OPERATOR Hypertension Portal (HCC) documented as of this encounter Visit Diagnoses Diagnosis Steatohepatitis Non Alcoholic - Primary Unspecified Cirrhosis Of Liver (HCC) Cirrhosis Alcoholic (HCC) Cirrhosis Alcoholic (HCC) Hypertension Portal (HCC) documented in this encounter Additional Health Concerns Assessment Noted Time PHQ-9 Depression Total Score: 10 10/06/2021 5:00 PM CD T documented as of this encounter Care Teams Medical Accountant Relationship Specialty Start Date End Date Ana Red P.A.-C. PCP - General Internal Medicine 12/01/[address] [place] [address] [facility] [place] [phone] [facility] 08/25/21 Ervin Schroeder MD Referring Provider Family Medicine 03/24/[address] [place] [address] [place] [address] documented as of this encounter
--- OUTSIDE RECORDS SUMMARY | 2022-02-16 12:22 | XMS_ITS | Encounter Summary ---
:1990 Author Organization [facility] Address [address] [place] [address] Care Team Providers Name Role Phone Ana Red P.A.-C. Primary Care Provider [phone] Encounter Details Date Type Department Care Team Description 12/04/2021 Clinical Communication Division of Jethro, Gastroenterology in Elizabeth Echevarria [place], [place] [address] [facility] [address] [place] [phone] Social History Tobacco Use Types Packs/Day Years [...] you attend confucianism or Patient refused 2021 taoist services? Do you belong to any clubs or No 02/10/2022 organizations such as confucianism groups, unions, [employer] or athletic groups, or school groups? 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 [address] [place] [phone] Virtual Visit Transplant Matthew Jerome 2 YKishore.Lilian Salas [address] [place] [phone] [facility] Hepatology Tyrell Rodriguez M.D. [address] [place] [phone] Appointment Radiology Queenie Matthew 2 YTyrell M.D. [address] [place] [phone] Hospital [facility] Cirrhos is Alcoholic (HCC) 2 Encounter Hepatology Tyrell Rodriguez M.D. [address] [place] [phone] Anesthesia Event Gastroenterology and Rl, 2 Hepatology Ervin Burgos M.D. [address] [place] [address] [phone] Surgery Gastroenterology and [facility] ESOPHAG OGASTRODUODENOSCOPY 2 Hepatology Tyrell Rodriguez M.D. 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 PCP - General Internal Medicine 12/01/[address] [place] [address] ADI Chua [phone] [facility]- Critical access hospital 08/25/21 Ervin Schroeder MD Referring Provider Family Medicine 03/24/[address] [place] [phone] documented as of this encounter
--- OUTSIDE RECORDS SUMMARY | 2022-02-16 12:22 | XMS_ITS | Encounter Summary ---
:1990 Author Organization [facility] Address [address] [place] [address] Care Team Providers Name Role Phone Ana Red P.A.-C. Primary Care Provider [phone] Reason for Visit Reason Comments Abdominal Distention Encounter Details Date Type Department Care Team Description 12/04/2021 Emergency [facility], Ascites (Primary Dx); Emergency Department Abdullahi Mendez M.D. Insomnia [address] [place] [address] [address] [place] [phone] (Wo rk) Social History Tobacco Use Types [...] you attend religious or Patient refused 2021 buddhism services? 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 If we can do better, please let us know that too. AttachmentsThe following attachments cannot be sent through Care Everywhere. Paracentesis Care After (Zambian)Ascites (Zambian)Trazodone Tablets (Zambian) documented in this encounter Medications at Time [...] Take 1 capsule (220 28 capsule 0 08/0 06/202112/30/2021 220 (50 mg zinc) mg total) [...] or amended. ED Course as of 12/09/212136 [facility] Dec 04, 2021 0843 LFTs are consistent [...] in the past. History provided by: Patient manager project needed/used: no REVIEW OF SYSTEMS Constitutional: Negative [...] 12/04/21 0443 -- 12/04/21 0443 12/04/21 0443 12/04/21442 36.6 ??C 85 17 116/68 99 % [...] Radiology Matthew Jerome 2, M.B.B.S., M.D. [address] [place] [phone] Appointment Gastroenterology and Adrianne, 2 Hepatology Yue Burciaga M.D. [address] [place] [phone] Virtual Visit Transplant LuischantellMatthew 2, M.B.B.S., M.D. [address] [place] [phone] Office Visit Gastroenterology and Luischantell Matthew 2 Hepatology Tyrell Rodriguez M.D. [address] [place] [phone] Appointment Radiology [facility] 2 Tyrell Rodriguez M.D. [address] [place] [phone] Hospital Gastroenterology and [facility] Cirrhos is Alcoholic (HCC) 2 Encounter Hepatology Tyrell Rodriguez M.D. [address] [place] [phone] Anesthesia Event Gastroenterology and Rl, 2 Hepatology Ervin Burgos M.D. [address] [place] [address] [phone] Surgery Gastroenterology and [facility] ESOPHAG OGASTRODUODENOSCOPY 2 Hepatology Tyrell Rodriguez M.D. [address] [place] [phone] Scheduled Procedures Name Priority Associated Diagnoses Date/Time ESOPHAGOGASTRODUODENOSCOPY Cirrhosis Alc oholic (HCC) 03/20/2022 8:45 AM ALLERGIST/IMMUNOLOGIST PHYSICIAN Hypertension Portal (HCC) documented as of [...] CDT) athologist Signature FIO2 0.21 0.21=AIR 12/04/2021 [facility] 7:34 AM CDT Spont. 18 12/04[facility]2021 [facility] 7[facility]34 AM CDT Specimen Anatomical Collection Method Collection Time Receive d Time (Source) Location / / Volume Laterality Blood 12/04/2021 7:30 AM 7:34 CDT AM CDT Sree Goodman M.D., M.A. LAB BLOOD NON ADD-ON Performing Organization Address City/[facility] Phon e Number [facility] - [address] hCG (Human Chorionic Gonadotropin), Quantitative, (12/04/2021 7:30 AM CDT) athologist Signature HCG, <0.5 <5 IU/L 12/04/2021 [facility] Quantitative, 7:51 AM CDT , P Specimen Anatomical Collection Method Collection Time Receive d Time (Source) Location / / Volume Laterality Blood (Blood, 12/04/2021 7:30 AM 12/05/19 7:34 Venous) CDT AM CDT Sree Goodman M.D., M.A. LAB BLOOD ADD-ON Performing Organization Address City/[facility] Phon e Number [facility] [address] (ABNORMAL) Prothrombin Time (PT) (12/04/2021 7:30 AM CDT) [facility] Method Time Signature Prothrombin 31.1 (H) 9.4 - 12.5 12/04/2021 [facility] Time, P sec 7:44 AM CDT INR 2.8 0.9 - 1.1 12/04/2021 [facility] 7:44 AM CDT Comment: ----ADDITIONAL INFORMATION---- [...] Organization Address City/[facility] Phon e Number [facility] - [address] [place] [address] Lipase (12/04/2021 7:30 AM CDT) P athologist Signature Lipase, S 44 13 - 60 U/L 12/04/2021 8:30 DTL AM CDT Specimen Anatomical Collection Method Collection Time Receive d Time (Source) Location / / Volume Laterality Blood (Blood, 12/04/2021 7:30 AM 12/05/19 8:04 Venous) CDT AM CDT Sree Goodman M.D., M.A. LAB BLOOD ADD-ON Performing Organization Address City/[facility] Phon e Number [facility] - [address] [place] [address] (ABNORMAL) Hepatic Function Panel (12/04/2021 7:30 [...] M.A. LAB BLOOD ADD-ON Performing Organization Address City/State/[facility] Code Phon e Number [facility] - [address] [place] [address] 05 [facility] [place] [address] Laboratories-[facility] 200 [facility] (ABNORMAL) CBC with Differential, Blood (12/04/2021 7:30 AM CDT) [facility] Method Time Signature Hemoglobin 8.0 (L) [...] Address City/State/ZIP Code Phon e Number [facility] - [address] [place], [place] [address] [facility] [place] [address] Laboratories-[facility] [address] [facility] (ABNORMAL) Basic Metabolic Panel (12/04/2021 7:30 AM [...] CDT eGFR-Black/Afri >90 >=60 12/04/2021 DTL can Armenian mL/min/BSA 8:53 AM CDT Comment: ----ADDITIONAL INFORMATION---- [...] Address City/State/ZIP Code Phon e Number [facility] - [address] [place], [place] [address] [facility] [place] [address] [facility] [address] [place] [address] [facility] [address] (ABNORMAL) Blood Gas with Coox, Venous (12/04/2021 7:30 AM CDT) [facility] Method Time Signature Venous pO2 36 [...] AM CDT CtO2 6.9 Not applicable 12/04/2021 [facility] vol % 7:38 AM CDT Venous Sample Venipunct 12/04/2021 [facility] Site 7:38 AM CDT Specimen Anatomical Collection Method Collection Time Receive d Time (Source) Location / / Volume Laterality Blood (Blood, 12/04/2021 7:30 AM 12/05/19 7:34 Venous) CDT AM CDT Sree Goodman M.D., M.A. LAB BLOOD NON ADD-ON Performing Organization Address City/State/ZIP Code Phon e Number [facility] - [address] [place], [place] [address] [place] [address] Laboratories-[facility] [address] [...] as of this encounter Care Teams Manager Telecom Relationship Specialty Start Date End Date Ana Red P.A.-C. PCP - General Internal Medicine 12/01/[address] [place] [address] BAYADI ALMARAZ [phone] [facility] 08/25/21 Ervin Schroeder MD Referring Provider Family Medicine 03/24/[address] [place] [address] ComeríoADI almaraz [phone] documented as of this encounter
--- OUTSIDE RECORDS SUMMARY | 2022-02-16 12:22 | XMS_ITS | Encounter Summary ---
:1990 Author Organization [facility] Address [address] [place] [address] Care Team Providers Name Role Phone Ana Red P.A.-C. Primary Care Provider [phone] Encounter Details Date Type Department Care Team Description 12/04/2021 Clinical Communication Division of Jethro, Gastroenterology in Elizabeth Echevarria [place], [place] [address] [facility] [address] [place] [phone] Social History Tobacco Use Types Packs/Day Years [...] you attend nondenominational or Patient refused 2021 anabaptist services? 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 [address] [place] [phone] Virtual Visit Transplant Matthew eJrome 2 YKishore.Lilian Salas [address] [place] [phone] Office Visit G[facility] 2 Hepatology Tyrell Rodriguez M.D. [address] [place] [phone] Appointment Radiology Queenie Matthew 2 YTyrell M.D. [address] [place] [phone] [facility] Cirrhos is Alcoholic (HCC) 2 Encounter Hepatology Tyrell Rodriguez M.D. [address] [place] [phone] Anesthesia Event Gastroenterology and Rl, 2 Hepatology Ervin Burgos M.D. [address] [place] [phone] Surgery Gastroenterology and [facility] ESOPHAG OGASTRODUODENOSCOPY 2 Hepatology Tyrell Rodriguez M.D. 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 PCP - General Internal Medicine 12/01/[address] [place] [address] ADI Chua [phone] [facility] 08/25/21 Ervin Schroeder MD Referring Provider Family Medicine 03/24/[address] [place] [phone] documented as of this encounter
--- OUTSIDE RECORDS SUMMARY | 2022-02-16 12:22 | XMS_ITS | Encounter Summary ---
:[address] [facility] [place] Address [address] [place] [address] Care Team Providers Name Role Phone Ana Red P.A.-C. Primary Care Provider [phone] Encounter Details Date Type Department Care Team Description 12/04/2021 Clinical Communication Division of Jethro, Gastroenterology in Elizabeth Echevarria [place], [place] [address] [facility] [address] [place] [phone] Social History Tobacco Use Types Packs/Day Years [...] you attend mandaen or Patient refused 2021 tenriism services? Do you belong to any clubs or No 02/10/2022 organizations such as mandaen groups, unions, fra[employer] or athletic groups, or school groups? 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 [address] [place] [phone] Virtual Visit Transplant Matthew Jerome 2 YKishore.Lilian Salas [address] [place] [phone] Office Visit Gastroenterology and [facility] 2 Hepatology Tyrell Rodriguez M.D. [address] [place] [phone] Appointment Radiology Alchantell Matthew 2 YTyrell M.D. [address] [place] [phone]ology and [facility] Cirrhos is Alcoholic (HCC) 2 Encounter Hepatology Tyrell Rodriguez M.D. [address] [place] [phone] Anesthesia Event Gastroenterology and Rl, 2 Hepatology Ervin Burgos M.D. [address] [place] [phone] [facility] ESOPHAG OGASTRODUODENOSCOPY 2 Hepatology Tyrell Rodriguez M.D. [address] [place] [phone] Scheduled Procedures Name Priority Associated Diagnoses Date/Time ESOPHAGOGASTRODUODENOSCOPY Cirrhosis Alc oholic (HCC) 03/20/2022 8:45 AM DISTRICT ATTORNEY Hypertension Portal (HCC) documented as of this encounter Visit Diagnoses Not on filedocumented in this encounter Additional Health Concerns Assessment Noted Time PHQ-9 Depression Total Score: 10 10/06/2021 5:00 PM CD T documented as of this encounter Care Teams Piece Meat Trimmer Relationship Specialty Start Date End Date Ana Red P.A.-C. PCP - General Internal Medicine 12/01/[address] [place] [address] ADI Chua [phone] [facility]- [place] lab 08/25/21 Ervin Schroeder MD Referring Provider Family Medicine 03/24/[address] [place] [address] documented as of this encounter
--- OUTSIDE RECORDS SUMMARY | 2022-02-16 12:22 | XMS_ITS | Encounter Summary ---
:1990 Author Organization [facility] Address [address] [place] [address] Care Team Providers Name Role Phone Ana Red P.A.-C. Primary Care Provider [phone] Reason for Referral Outpatient (Routine) - Pending Review Specialty Diagnoses / Procedures Referred By Contact Refer red To Contact Sleep Medicine Diagnoses [facility] [address] [place] [phone] Referral ID Status Reason Start Expiration Visits Visits Date Date Requested Authorized [id number] Pending Specialty 12/02/2021 12/02/2022 1 1 Review Services Required Scheduling Instructions Schedule stat since her study was cancel led twice Outpatient (Routine) - Closed Specialty Diagnoses / Procedures Referred By Contact Refer red To Contact [facility] Internal JESSE Arnold [facility] R egion Medicine Jeri CorreaOSuma [address], [place] [address] Referral ID Status Reason Start Date Expiration Date Visits Requ ested Visits Authorized [id number] Closed 12/02/2021 12/02/2022 1 1 Scheduling Instructions Schedule with ana her PCP . To laci w up on liver cirrhosis , and hepatic encephalopathy Outpatient (Routine) - Authorized Specialty Diagnoses / Procedures Referred By Contact Refer red To Contact Diagnoses Alcoholic Cirrhosis Of Liver Without Ascites (HCC) Ascites Chronic Sunny Arnold [facility] Region Procedures US Abdomen Complete D.O. [address] [place] [phone] Referral ID Status Reason Start Date Expiration Date Visits V isits Requested Authorized [id number] Authorized 12/02/2021 12/02/2022 1 1 Reason for Visit Reason Comments Post Hospital Follow-up TCM post [facility] stay with discharge on 11/26/2021 Appointment Request (Routine) - Closed Specialty Diagnoses / Procedures Referred By Contact Refer red To Contact Community Internal Medicine Referral ID Status Reason Start Date Expiration Date Visits Requ ested Visits Authorized [id number] Closed 12/01/2021 12/01/2022 1 1 Encounter Details Date Type Department Care Team Description 12/02/2021 Office Visit Department of Internal Silvano Arnold cutluzma And Subacute Hepatic Failure Without Coma (HCC) (Primary Dx); Medicine in [place] D.O . Pancreatitis Chronic (HCC); [place] [address] [facility] Use Of Opiate Analgesic; [address] [place], [place] Alcohol Use Unspecified With Unspecified Alcohol Induced Disorder (HCC); [place] [address] Alcoholic Cirrhosis Of Liver Without Asc ites (HCC); [phone] Ascites Chronic; Insomnia; [phone] High Risk Medic ation (Fax) Social History [...] you attend taoism or Patient refused 2021 jain services? 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 [address] [place] [phone] Virtual Visit Transplant Matthew Jerome 2, M.B.B.S., M.D. [address] [place] [phone] Office Visit Gastroenterology and Matthew Jerome 2 Hepatology Tyrell Rodriguez M.D. [address] [place] [phone] Appointment Radiology Matthew Jerome 2 Tyrell Rodriguez M.D. [address] [place] [phone] [facility] Cirrhos is Alcoholic (HCC) 2 Encounter Hepatology Tyrell Rodriguez M.D. [address] [place] [phone] Anesthesia Event Gastroenterology and Rl, 2 Hepatology Ervin Burgos M.D. [address] [place] [address] [phone] [facility] ESOPHAG OGASTRODUODENOSCOPY 2 Hepatology Tyrell Rodriguez M.D. [address] [place] [phone] Scheduled Orders Name Type Priority Associated Diagnoses Order S [facility] US Abdomen Complete Imaging RAD - Routine (most Alcoholic Cirr hosis Expected: inpatients and all Of Liver Without 12/02 outpatients) Ascites (HCC) (Approximate), Ascites Chronic Expires: 03/04/2023 Scheduled Procedures Name Priority Associated Diagnoses Date/Time ESOPHAGOGASTRODUODENOSCOPY Cirrhosis Alc oholic (HCC) 03/20/2022 8:45 AM ELECTRICAL INSTALLER Hypertension Portal (HCC) Scheduled Referrals Name Type Priority Associated Diagnoses Order S [facility] Internal Outpatient Referral Routine Ex pected: Medicine office 12/16/2021 visit (clinic) (Approximate) , Expires: 03/04/2023 Sleep Medicine - Outpatient Referral Routine Insomnia Expe cted: General consult 12/02/2021 (clinic) (Approximate), Expires: 03/04/2023 documented as of this encounter Visit Diagnoses Diagnosis Acute And Subacute Hepatic Failure Witho ut Coma (HCC) - Primary Pancreatitis Chronic (HCC) Jail Use Of Opiate Analgesic Alcohol Use Unspecified [...] as of this encounter Care Teams Plant And Maintenance Technician Relationship Specialty Start Date End Date Ana Red P.A.-C. PCP - General Internal Medicine 12/01/[address] [place] [phone] [facility]- [place] [facility] 08/25/21 Ervin Schroeder MD Referring Provider Family Medicine 03/24/[address] [place] [phone] documented as of this encounter
--- OUTSIDE RECORDS SUMMARY | 2022-02-16 12:22 | XMS_ITS | Encounter Summary ---
:1990 Author Organization [facility] Address [address] [place] [address] Care Team Providers Name Role Phone Ana Red P.A.-C. Primary Care Provider [phone] Encounter Details Date Type Department Care Team Description 12/04/2021 Documentation Division of Gastroenterology Concepción Morelos, in [facility] pedro Quintana [address] [facility] [address] [place] [address] [place], [place] [phone] (Wo rk) Social History Tobacco Use Types [...] attend latter day or Patient refused 2021 restoration services? Do you belong to any clubs or No 02/10/2022 organizations such as latter day groups, unions, fraColizer or athletic groups, or school groups? 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 - 12/04/2021 12:44 AM CDT GI fellow account consultant Catia Carias is a 31 y.o. female [...] is most comfortable having this done at [place]. She denies n/v, confusion, melena, hematochezia, or [...] would like to receive her care at [place]. She is planning to come to the [...] today and willing to come back to [place] (lives about 40 min away). I am working with [facility] to get her in for an outpatient para and have forwarded my note to Dr. Jerome as well. Nabila Morelos M.D. Gastroenterology Fellow documented in this encounter Plan of Treatment Upcoming Encounters Date Type Specialty Care Team Description Telemedicine Transplant 2 Appointment Radiology Matthew Jerome 2 YTyrell M.D. [address] [place] [phone] Appointment Gastroenterology and Adrianne, 2 Hepatology Yue Burciaga M.D. [address] [place] [phone] Virtual Visit Transplant Matthew Jerome 2 Tyrell Rodriguez M.D. [address] [place] [phone] Office Visit Gastroenterology and Matthew Jerome 2 Hepatology Tyrell Rodriguez M.D. [address] [place] [phone] Appointment Radiology Matthew Jerome 2 YTyrell M.D. [address] [place] [phone] Hospital Gastroenterology and Mousa, Matthew Cirrhos is Alcoholic (HCC) 2 Encounter Hepatology Tyrell Rodriguez, Lilian [address] [place] [phone] Anesthesia Event Gastroenterology and Rl, 2 Hepatology Ervin Burgos M.D. [address] [place] [phone] Surgery Gastroenterology and [place], Matthew ESOPHAG OGASTRODUODENOSCOPY 2 Hepatology Tyrell Rodriguez, Lilian [address] [place] [phone] Scheduled Procedures Name Priority Associated Diagnoses Date/Time ESOPHAGOGASTRODUODENOSCOPY Cirrhosis Alc oholic (HCC) 03/20/2022 8:45 AM INVESTMENT BANKER Hypertension Portal (HCC) documented as of this encounter Visit Diagnoses Not on filedocumented in this encounter Additional Health Concerns Assessment Noted Time PHQ-9 Depression Total Score: 10 10/06/2021 5:00 PM CD T documented as of this encounter Care Teams Steeler Relationship Specialty Start Date End Date Ana Red P.A.-C. PCP - General Internal Medicine 12/01/[address] [place] [address] [place] [phone] [facility] 08/25/21 Ervin Schroeder MD Referring Provider Family Medicine 03/24/[address] [place] [address] [place] [address] documented as of this encounter
--- OUTSIDE RECORDS SUMMARY | 2022-02-16 12:22 | XMS_ITS | Encounter Summary ---
:1990 Author Organization [facility] Address [address] [place] [address] Care Team Providers Name Role Phone Ana Red P.A.-C. Primary Care Provider [phone] Encounter Details Date Type Department Care Team Description 12/02/2021 Clinical Communication Pharmacy Prior Auth Jasmyne Keller [phone] Social History Tobacco Use Types Packs/Day Years [...] you attend pentecostalism or Patient refused 2021 yazidism services? 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 Thank you, The [facility] Team documented in this encounter Plan of Treatment Upcoming Encounters Date Type Specialty Care Team Description Telemedicine Transplant 2 Appointment Radiology Matthew Jerome 2 YVikBLilian Bedolla [address] [place] [address] [phone] Appointment Gastroenterology demian Silver, 2 Hepatology Yue Burciaga M.D. [address] [place] [phone] Virtual Visit Transplant Matthew Jerome 2 YTyrell M.D. [address] [place] [phone] Office Visit Gastroenterology and Matthew Jerome 2 Hepatology Tyrell Rodriguez M.D. [address] [place] [phone] Appointment Radiology Matthew Jerome 2 YJoshuaBSumaBLilian Bedolla [address] [place] [phone] Hospital Gastroenterology and Matthew Jerome Cirrhos is Alcoholic (HCC) 2 Encounter Hepatology Joshua RodriguezBSumaBLilian Bedolla [address] [place] [phone] Anesthesia Event Gastroenterology and Rl, 2 Hepatology Ervin Burgos M.D. [address] [place] [address] [phone] Surgery Gastroenterology and Mousa, Matthew ESOPHAG OGASTRODUODENOSCOPY 2 Hepatology YTyrell M.D. [address] [place] [phone] Scheduled Procedures Name Priority Associated Diagnoses Date/Time ESOPHAGOGASTRODUODENOSCOPY Cirrhosis Alc oholic (HCC) 03/20/2022 8:45 AM CHAR CONVEYOR TENDER Hypertension Portal (HCC) documented as of this encounter Visit Diagnoses Not on filedocumented in this encounter Additional Health Concerns Assessment Noted Time PHQ-9 Depression Total Score: 10 10/06/2021 5:00 PM CD T documented as of this encounter Care Teams Router Setter Relationship Specialty Start Date End Date Ana Red P.A.-C. PCP - General Internal Medicine 12/01/[address] [place] [phone] [facility] 08/25/21 Ervin Schroeder MD Referring Provider Family Medicine 03/24/[address] [place] [phone] documented as of this encounter
--- OUTSIDE RECORDS SUMMARY | 2022-02-16 12:22 | XMS_ITS | Encounter Summary ---
:1990 Author Organization [facility] Address [address] [place] [address] Care Team Providers Name Role Phone Ana Red P.A.-C. Primary Care Provider [phone] Encounter Details Date Type Department Care Team Description 11/26/2021 Clinical [facility] in [facility].B.[facility]it[facility], Joshua Kruger. [address] [place] [phone] Social History Tobacco Use Types Packs/Day Years [...] 02/10/2022 organizations such as anabaptist groups, unions, fraSpark Labs or athletic groups, or school groups? 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 [address] [place] [phone] Virtual Visit Transplant Matthew Jeorme 2 YTyrell M.D. [address] [place] [phone] Office Visit Gastroenterology and [facility] Matthew 2 Hepatology Tyrell Rodriguez M.D. [address] [place] [phone] Appointment Radiology Queenie Matthew 2 YTyrell M.D. [address] [place] [phone] Hospital Gastroenterology and [facility] Cirrhos is Alcoholic (HCC) 2 Encounter Hepatology Tyrell Rodriguez M.D. [address] [place] [phone] Anesthesia Event Gastroenterology and Rl, 2 Hepatology Ervin Burgos M.D. [address] [place] [address] [phone] Surgery Gastroenterology and [facility] ESOPHAG OGASTRODUODENOSCOPY 2 Hepatology Tyrell Rodriguez M.D. 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 PCP - General Internal Medicine 12/01/[address] [place] [address] ADI Chua [phone] [facility] 08/25/21 Ervin Schroeder MD Referring Provider Family Medicine 03/24/[address] [place] [address] documented as of this encounter
--- OUTSIDE RECORDS SUMMARY | 2022-02-16 12:23 | XMS_ITS | Encounter Summary ---
:1990 Author Organization [facility] Address [address] [place] [address] Care Team Providers Name Role Phone Elsewhere, Pcp Primary Care Provider Unavailable Reason for Referral Outpatient (Routine) - Authorized Specialty Diagnoses / Procedures Referred By Contact Refer red To Contact Diagnoses Cirrhosis Alcoholic (HCC) Gerard Andino M.D., M.S. [address] [place] [address] Referral ID Status Reason Start Date Expiration Date Visits V isits Requested Authorized [id number] Authorized 11/26/2021 11/26/2022 1 1 Medication Prior Authorization - Denied Specialty Diagnoses / Procedures Referred By Contact Refer red To Contact Gerard Andino M.D. , M.S. [address] [place] [address] Referral ID Status Reason Start Date Expiration Date Visits Requ ested Visits Authorized [id number] Denied 1 1 Reason for Visit Reason Comments Altered Mental Status Auth/Cert Specialty Diagnoses / Procedures Referred By Contact Refer red To Contact Diagnoses Change Mental Status Malaise (Concern For Covid-19) Encephalopathy Procedures ETU Referral ID Status Reason Start Date Expiration Date Visits Requ ested Visits Authorized [id number] 1 1 Encounter Details Date Type Department Care Team Description 11/12/2021 - [facility] [place] Rosaura Sevilla M.D., M.P.H. [address] [place] [address] Encephalopathy (Primary Dx); [facility] [address] [place] [address] Change Mental Status; [facility], Jody Aguilar M.B., B.Chir. [address] [place] [address] Malaise (Concern For Covid-19); Lambert Tate [facility] ([facility]) [facility], Third Floor [address] [place] [phone] Social History Tobacco Use Types Packs/Day Years [...] or the highest technical, or vocational p HelloBooksram degree you have received? 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 On arrival she was unable [...] AM CDT You were discharged from the [facility] Gastroenterology A Service. Please identify this service name if you call with questions after hospitalization. AttachmentsThe following attachments cannot be sent through Care Everywhere. Diclofenac (On the skin) (Jamaican)Lidocaine Patch (On the skin) (Jamaican) Sulfamethoxazole/Trimethoprim (By mouth) (Jamaican)documented in this encounter Medications at Time of [...] Medical Care - Home Health Care Name: [facility] Office Contact: Nurse How do we reach your agency on a weekend/holiday? [phone] ( FYI unavailable to re-start services on [...] directive. PRIMARY SERVICE: - Please provide a non-[facility] home health order for: long-term care, medication management in the After Visit [...] and minimize these if possible in the shelter. We have discontinued gabapentin and also her [...] Magic Cup supplements available. Danie albright requested radio news writer order her some apple slices and [...] -13 kg Estimated Needs: Total Calorie Needs: 6721-3611 calories/day Method to Estimate Energy Needs: Mueller-Sloan (Basal to Basal + 20% (HB +20- [...] about patient's nutritional care please contact pager [phone] on weekdays or [phone] on weekends/holidays. Jody Aguilar M.B., B.Chir. - [...] and minimize these if possible in the shelter. We have discontinued gabapentin and also her [...] Bergeron M.D. - 11/25/2021 6:14 AM CDT [facility] Gastroenterology A PROGRESS NOTE SUBJECTIVE [...] / PLAN Ms. Carias is hospitalized on [facility] Gastroenterology A for evaluation and [...] Acute care monitoring needs Plan discussed with [facility] Gastroenterology A Sterile Processing Technician, Jody Hernandez M.B., who was present during judd portions of the evaluation today. Please page the [facility] [place] [phone] with any questions. Jody Aguilar M.B., B.Chir. [...] and minimize these if possible in the buttermaker helper. We have discontinued gabapentin and also her [...] / PLAN Ms. Carias is hospitalized on [facility] Gastroenterology A for evaluation and [...] Acute care monitoring needs Plan discussed with [facility] Gastroenterology A Sterile Processing Technician, Jody Hernandez MSumaBSuma, who was present during judd portions of the evaluation today. Please page the [facility] [place] [phone] with any questions. Dina Campa M.D. Internal [...] A, zincsupplementation. Paty Maynard, PharmD, [facility] [phone] Jody Aguilar M.B., B.Chir. - 11/23/2021 9:26 [...] and minimize these if possible in the shelter. We have discontinued gabapentin and also her [...] 22 2021. She went out [facility] yesterday. She was talking in coherent sentences [...] and minimize these if possible in the buttermaker helper. We have discontinued gabapentin and also her [...] and minimize these if possible in the buttermaker helper. We have discontinued gabapentin and also her [...] Medicine and can be reached via pager [phone]. Session Information Music Therapy Time Spent (Min): [...] antibiotics, spironolactone, thiamine 100 mg, vitamin A 99874 units Mon Wed, zinc sulfate 220 mg [...] 0 kg Estimated Needs: Total Calorie Needs: 4687-1800 calories/day Method to Estimate Energy Needs: Mueller-Sloan (Basal to Basal + 10%) Weight Used [...] about patient's nutritional care please contact pager [phone] on weekdays or [phone] on weekends/holidays. Jody Aguilar M.B., Umu. - [...] and minimize these if possible in the buttermaker helper. We have discontinued gabapentin and also her [...] Medical Care - Home Health Care Name: [facility] Office Contact: Nurse How do we reach your agency on a weekend/holiday? [phone] ( FYI unavailable to re-start services on [...] directive. PRIMARY SERVICE: - Please provide a non[facility] home health order for: long-term care, medication management in the After Visit [...] / PLAN Ms. Carias is hospitalized on [facility] Gastroenterology A for evaluation and [...] Vitamin and mineral supplements Plan discussed with [facility] Gastroenterology A Sterile Processing Technician, Jody Hernandez M.B., who was present during judd portions of the evaluation today. Please page the [facility] [place] [phone] with any questions. Dina Campa M.D. Internal Medicine, PGY-2 Hima Messer M.D. - 11/19/2021 12:30 PM CDT SUBJECTIVE Interim developments since the initial psychiatric consult and subsequent follow-up were reviewed prior to meeting with Ms. Carias who tells me she is at [facility] in [place], [place] and it is 2021 (as she [...] contact the psychiatry consult service pager at [phone]. Hima Messer M.D. 11/19/2021 Nabila Maynard, Pharm.D., [...] Nutrition: On tube feeds. All meds via [employer]. Paty Maynard, EmperatrizD, [facility] [phone] Jody Aguilar M.B., B.Chir. - 11/19/2021 9:44 [...] and minimize these if possible in the buttermaker helper. We have discontinued gabapentin and also her [...] Guerrier M.D. - 11/18/2021 5:19 PM CDT [facility] Palliative Care Consultation Service Progress Note [...] for having the Palliative Medicine team A ([phone]) participate in the care of this patient. [...] team, and can be reached via pager [phone]. Session Information Music Therapy Time Spent (Min): [...] prevacid, spironolactone, thiamine 100 mg, vitamin A 33516 units Wed, zinc sulfate 220 mg Pertinent [...] 0 kg Estimated Needs: Total Calorie Needs: 5026-7843 calories/day Method to Estimate Energy Needs: Mueller-Sloan (Basal to Basal + 10%) Weight Used [...] about patient's nutritional care please contact pager [phone] on weekdays or [phone] on weekends/holidays. Jody Aguilar M.B., B.Chir. - [...] and minimize these if possible in the shelter. We have discontinued gabapentin and also her [...] / PLAN Ms. Carias is hospitalized on [facility] Gastroenterology A for evaluation and [...] Please contact the primary service pager - [phone] with any questions. Electronically signed by: Gerard [...] 0 kg Estimated Needs: Total Calorie Needs: 6157-9076 calories/day Method to Estimate Energy Needs: Mueller-Sloan (Basal to Basal + 10%) Weight Used [...] about patient's nutritional care please contact pager [phone] on weekdays or [phone] on weekends/holidays. Tiffanei Boyd - 11/17/2021 1:00 PM CDT Palliative [...] Pop Favorite Songs, Artists, or Radio Stations: [place], Pop, soft rock Music Therapy Treatment Plan [...] team, and can be reached via pager [phone]. Session Information Music Therapy Time Spent (Min): [...] and minimize these if possible in the shelter. We have discontinued gabapentin and also her [...] 8:00 AM CDT Neurology Consult Note Supervising Sterile Processing Technician: Dr. Renee Gale Service pager: [phone] SUBJECTIVE Referral [facility] Consult question: Alternative neurological explanation for encephalopathy [...] progressively more confused. She was transferred to [facility] on 11/12. Initially on presentation the [...] Friends and Family: Twice a week Attends Confucianist Services: Never Active Member of Clubs or [...] to page the Neurology Consult pager at [phone] with any questions or concerns and we [...] and minimize these if possible in the shelter. We have discontinued gabapentin and also her [...] of the Neurology consult Service. Examined in [place] [address] room 251. Neuro: While her eyes were [...] follow. Please page the Neurology Consult Service ([phone]) with any questions. Total time 25 min. DIAGNOSES #1 Hepatic encephalopathy #2 Decompensated alcoholic liver disease #3 Rule out nonconvulsive seizures isel Vieyra M.D. - 11/15/2021 2:47 PM CDT Neurology Consult Note Supervising Sterile Processing Technician: Dr. Renee Gale Service pager: [phone] SUBJECTIVE Referral [facility] Consult question: Alternative neurological explanation for encephalopathy [...] progressively more confused. She was transferred to [facility] on 11/12. Initially on presentation the [...] Friends and Family: Twice a week Attends Confucianist Services: Never Active Member of Clubs or [...] to page the Neurology Consult pager at [phone] with any questions or concerns and we [...] and minimize these if possible in the buttermaker helper. We have discontinued gabapentin and also decrease [...] 71.9 kg (11/12/2021) Current Weight: 71.9 kg [place] Body Weight (Calculated) : 51.4 kg BMI [...] 61.6 kg Estimated Needs: Total Calorie Needs: 4557-9565 calories/day Method to Estimate Energy Needs: Mueller-Sloan (Basal to Basal + 10%) Weight Used [...] formula, 1500 calories, and 68 gm protein, opf458% of Dietary Reference Intake for vitamins/minerals weston [...] about patient's nutritional care please contact pager [phone] on weekdays or [phone] on weekends/holidays. Gerard Andino M.D., M.S. - [...] / PLAN Ms. Carias is hospitalized on [facility] Gastroenterology A for evaluation and management of hepatic encephalopathy in the setting of lactulose noncompliance. Her encephalopathy has resolved with appropriate administration of lactulose and bowel movement resumption. She is nonverbal at the moment but alert. Derrek not think this is digital sales representative of hepatic encephalopathy and is [...] Please contact the primary service pager - [phone] with any questions. Electronically signed by: Gerard [...] tryand minimize these if possible in the shelter. We have discontinued gabapentin and also decrease [...] she does not know anyhing about her sikhism. Family: Family members were not present Maria De Jesus/Tradition: The patient's sikhism is unknown Plan: Will remain available for spiritual care as needed or requested. Chaplains can be contacted bypaging [phone] ([facility]) or [phone] ([place]). Jody Aguilar M.B., B.Chir. - 11/13/2021 10:05 [...] tryand minimize these if possible in the buttermaker helper. We will discontinue gabapentin and also decrease [...] / PLAN Ms. Carias is hospitalized on [facility] Gastroenterology A for evaluation and [...] Please contact the primary service pager - [phone] with any questions. Electronically signed by: Gerard [...] COVID therapies indicated. Evon Rodriguez Pharm.D., R.Ph. [phone] documented in this encounter H&P Notes Jody [...] tryand minimize these if possible in the shelter. #2 Ascites This is still present. #3 History of acute kidney injury Repeat creatinine is still in a normal range at 0.7. #4 Marijuana use Gerard Andino M.D., M.S. - 11/12/2021 3:38 AM CDT [facility] Gastroenterology A Admission Note REFERRAL SOURCE: [facility] Emergency Department PRIMARY CARE PROVIDER: Primary [...] She was transferred via EMS to the [facility] Emergency Department. On arrival, patient reportedly had [...] including alcoholic cirrhosis who is hospitalized on [facility] Gastroenterology A for evaluation and [...] will be formally staffed with GI A pension consultant Dr. Aguilar in the morning. Please see the supervisory note for further details. Please contact the primary service pager - [phone] with any questions. Electronically signed by: Gerard Andino M.D. Internal Medicine PGY-2 11/12/21 7:12 AM CDT documented in this encounter Procedure Notes Titi Oswald M.D. - 11/12/2021 1:58 AM CDTAssociated Order(s): Peripheral Venous Access Procedure Peripheral Venous Access Date/Time: 11/12/2021 1:58 AM Performed by: Titi Oswald M.D. Authorized by: Rosaura Sevilla M.D., M.P.H. Care team members present 1. Titi Oswald M.D. 2. Ervni Morales M.D. PROCEDURE DETAILS Ultrasound image guidance [...] follow. Please page the Neurology Consult Service ([phone]) with any questions. DIAGNOSES #1 Hepatic encephalopathy [...] Donna Varghese M.D. CT CT Job ID: [id number] Milagros Patel L.G.S.W., M.S.W. - 11/15/2021 11:03 [...] home nursing to help with medications with [facility] Care. Social work will reconnect to services. Lobito appreciates regular medical updates. OBJECTIVE Patient is hospitalized on [id number]. ASSESSMENT / PLAN ASSESSMENT Patient not appropriate to assess. Patient significant other Lobito is a reliable historian. PLAN -social work submitted the reconnect to [facility] service. Danny Babin, M.S.W. 11/15/21 T Rachel Winston M.D. - 11/15/2021 9:11 AM CDT Psychiatry Consult Note Consult Question - encephalopathy and hallucination not explained by hepatic etiology, concern for catatonia RECOMMENDATIONS *Please refer to the pension consultant's note for final recommendations* Patient's presentation [...] Carias is a 31 y.o. female from [place], [place] who was admitted 11/12/2021 1:11 AM [...] Friends and Family: Twice a week Attends Confucianist Services: Never Active Member of Clubs or [...] contact the C/L Psychiatry on-call service pager [phone] with any questions. Rachel Winston M.D. Senior Database Engineer Nessa Mcfarland M.D. - 11/14/2021 4:21 PM CDT [facility] Palliative Medicine CEMENTER MACHINE APPLICATOR/PA Collaborative Visit Note I have discussed the patient with Zenobia Nguyễn APRN/DAPHNEY. I have reviewed the pertinent history. I discussed the impression and plan with the CEMENTER MACHINE APPLICATOR/PA. I agree with the history, examination, impression, and recommendations as documented in today's note from the CEMENTER MACHINE APPLICATOR/PA except as documented below. Ms. Carias is [...] CDTAssociated Order(s): IP CONSULT TO PALLIATIVE CARE [facility] Palliative Medicine New Consult Note Patient: Catia Carias; 31 y.o.female Location: 251/251-P Date of Service: 11/14/2021 Time of Visit: 3:56 PM CDT Hospital Admission Date: 11/12/2021 1:11 AM Hospital Day: 2 Primary Wooden Barrel Mechanic: Jody Aguilar M.B., * Primary Care Provider: [...] have reviewed the patient???s record in the [place] Prescription Monitoring Program ([facility] [employer]) with no unexpected findings. The following portions [...] also encouraged him to bring their dog [place] to the hospital for a visit. Palliative Care will continue to follow, though we will not plan to see Christelle over the course of the weekend as we are not currently managing symptoms. Should questions or concerns arise, however, pleasedon't hesitate to contact us at service pager [phone]. It is our pleasure to have the opportunity to participate in Christelle's continued care. Thank you. Zenobia Nguyễn APRN, [facility] Center for Palliative Medicine documented [...] lacking in appropriate nutritional intake. Wheelchair ride [facility] [employer] was offered as well as a shower and pt refused at this time. Problem: SAFETY ADULT Goal: Maintain a safe environment Outcome: Progressing Note: Pt transitioned to Video monitor from PR, as she has been appropriate in the [...] for catheter care to be done by COMMUNITY DIETITIAN/IA. RN encouraged taking medications PO and reiterated [...] 11/22/21 Time initiated: 1819 Initiated by: Other (COMMUNITY DIETITIAN in hallway with patient) ASSESSMENT: Patient is a 31 y.o. female admitted to [facility] for Change Mental Status. When this radio news writer was walking to a consultation Ms. Carias was ambulating in the hallway with her assigned COMMUNITY DIETITIAN. Patient impulsively got up from wheelchair with no concern for the lines she was connected to. She was attempting to use the phone at the nurses station. Ms. Carias stated to an individual on the phone (possibly [facility] casting and curing operator), you need to come pick me up, when individual responded questioning her current location, she hung up the phone. When talking with the patient she was initially calm. Ms. Carias suddenly changed her facial expression and hit this radio news writer on the arm and stated, I'm scared. [facility] Security wascalled to assist. Patient's assigned [...] free to contact the ROSMERY RN at [phone], or in an emergent situation by activating the ROSMERY team through the hospital casting and curing operator by dialing 911. Heather Nassar R.N. - 11/21/2021 8:00 PM CDT This radio news writer making entry as this happened when I came on shift. Patient was assisted to the to betaken outside per service request. Pt was taken out to the courtyard by the COMMUNITY DIETITIAN and boyfriend Bob.Immediately after going to the courtyard, the patient would not follow directions according to the COMMUNITY DIETITIAN. COMMUNITY DIETITIAN tried to get her to stay in her w/c and she would not comply. Pt got out of the w/c and laid in the grass. COMMUNITY DIETITIAN hit her duress button on her badge [...] M.P.H. - 11/12/2021 3:22 AM CDT ED HUMAN RESOURCES TEAM MEMBER NOTE 31 year old female with h/o [...] a supervisoryrole. Rosaura Sevilla M.D., M.P.H. 11/17/21 [id number] Rosaura Sevilla M.D., M.P.H. 11/17/21 [id number] Titi sOwald M.D. - 11/12/2021 1:54 AM CDT EMERGENCY [...] 1:48 AM CDT Patient presents to the [place] [facility] Department via EMS for altered mental status. Patient was discharged yesterday from [facility] for hospitalization of hepatic encephalopathy. Patient's [...] coordinate the care. For questions, contact the [place] Covid Care Team (CCT): Pager: [phone] In basket: P [facility] COVID-19 POSITIVE Covid Care e-consult NOTE: At the time of testing, patients are instructed to obtain the result by calling the [employer] result line or by checking their online services account. [facility] Course - eGrard Andino M.D., M.S. - 11/12/2021 7:16 AM [...] She was transferred via EMS to the [facility] Emergency Department. On arrival she was unable [...] Appointment Radiology Matthew Jerome 2, M.B.B.S., M.D. [address] [place] [address] Appointment Gastroenterology and [place], 2 Hepatology Yue Burciaga M.D. [address] [place] [address] Virtual Visit Transplant Matthew Jerome 2 Tyrell Rodriguez M.D. [address] [place] [address] Office Visit Gastroenterology and Matthew Jerome 2 Hepatology Tyrell Rodriguez M.D. [address] [place] [address] Appointment Radiology LuisMatthew abdul 2 Tyrell Rodriguez M.D. [address] [place] [phone] Hospital Gastroenterology and Matthew Jerome Cirrhos is Alcoholic (HCC) 2 Encounter Hepatology Tyrell Rodriguez M.D. [address] [place] [phone] Anesthesia Event Gastroenterology and Rl, 2 Hepatology Ervin Burgos M.D. [address] [place] [address] Surgery Gastroenterology and Matthew Jerome ESOPHAG OGASTRODUODENOSCOPY 2 Hepatology Tyrell Rodriguez M.D. [address] [place] [address] Scheduled Procedures Name Priority Associated Diagnoses Date/Time ESOPHAGOGASTRODUODENOSCOPY Cirrhosis Alc oholic (HCC) 03/20/2022 8:45 AM STAFFING EXECUTIVE Hypertension Portal (HCC) Scheduled Referrals Name Type Priority Associated Diagnoses Order [facility] Outpatient Referral Routine Cirrhosis Alcoholic Ordered: [...] Dipstick, Urine (11/26/2021 6:59 AM CDT) [facility] Method Time Signature Hemoglobin, Trace (A) [...] City/State/ZIP Code Phon e Number [facility] - [address] [place], [place] [address] [place], [place] [phone] [place] [address] [address] [facility] pH, Urine (11/26/2021 6:59 AM CDT) P athologist Signature pH, U 6.3 4.5 - 8.0 11/26/2021 8:06 DTL AM CDT Specimen Anatomical Collection Method Collection Time Receive d Time (Source) Location / / Volume Laterality Urine 11/26/2021 6:59 AM 2 7:15 CDT AM CDT Gerard Andino M.D., M.S. LAB URINE ORDERABLES Performing Organization Address City/[facility]/ZIP Code Phon e Number [facility] - [address] [place], [place] [address] [place], [place] [phone] [place] [address] Osmolality, Urine (11/26/2021 6:59 AM CDT) P athologist Signature Osmolality, U 325 150 - 1150 11/26/2021 DTL mOsm/kg 8:06 AM CDT Specimen Anatomical Collection Method Collection Time Receive d Time (Source) Location / / Volume Laterality Urine 11/26/2021 6:59 AM 2 7:15 CDT AM CDT Gerard Andino M.D., M.S. LAB URINE ORDERABLES Performing Organization Address City/[facility]/ZIP Code Phon e Number [facility] - [address] [place], [place] [address] [facility] [place] [address] [facility] [address] (ABNORMAL) Microscopic Automated (11/26/2021 6:59 AM CDT) [facility] Signature Microscopy Abnormal 11/26/2021 DTL 7:48 [...] M.S. LAB URINE ORDERABLES Performing Organization Address City/[facility] Phon e Number [facility] - [address] Bacterial Culture, Aerobic + Susc, Urine (11/26/2021 6:59 AM CDT) [facility] Method Time [facility] Urine Culture No growth 11/27/2021 DT after 1 day 8:35 AM CDT of incubation. Specimen Anatomical Collection Method Collection Time Receive d Time (Source) Location / / Volume Laterality Urine (Urine, 11/26/2021 6:59 AM 11/27/19 22 7:31 Midstream) CDT AM CDT Comment: Specimen Source Site: Urine Gerard Andino M.D., M.S. LAB MICROBIOLOGY - GENERAL O RDERABLES Performing Organization Address City/[facility] Phon e Number [address] (ABNORMAL) Urinalysis with Microscopic: Urine, Midstream [...] AM 11/27/19 7:15 Midstream) CDT AM CDT eGrard Andino M.D., M.S. LAB URINE ORDERABLES Performing Organization Address City/State/ZIP Code Phon e Number [facility] - [address] [place], [place] [address] [facility] [place] [place] [address] [facility] [address] Abdomen Pelvis [...] M.D. LAB BLOOD ADD-ON Performing Organization Address [facility] Phon e Number [facility] - [address] [place] [address] [facility] [place] [id number] [address] Magnesium (11/25/2021 6:55 AM CDT) P athologist Signature Magnesium, S 1.7 1.7 - 2.3 11/25/2021 DTL mg/dL 7:54 AM CDT Specimen Anatomical Collection Method Collection Time Receive d Time (Source) Location / / Volume Laterality Blood (Blood, 11/25/2021 6:55 AM 11/26/19 22 7:33 Venous) CDT AM CDT Dina Campa M.D. LAB BLOOD ADD-ON Performing Organization Address City/[facility] Phon e Number [facility] - [address] (ABNORMAL) Basic Metabolic Panel (11/25/2021 6:55 [...] 11/25/2021 DTL Black/ mL/min/BSA 7:54 AM CDT Nepalese Comment: ----ADDITIONAL INFORMATION---- Estimated GFR calculated using [...] [facility] - [address] [place], [place] [address] [facility] [place] [place] [address] [facility] 200 [facility] (ABNORMAL) CBC with Differential, Blood (11/25/2021 6:55 AM CDT) [facility] gist Method Time Signature Hemoglobin 7.5 [...] [facility] - [address] [place], [place] [address] [facility] [place] [address] [facility] 200 [facility] DX Abdomen Portable Anterior Posterior 1 [...] with Differential, Blood (11/24/2021 10:39 AM CDT) [facility] Method Time Signature Hemoglobin 8.4 (L) [...] [facility] [address] [place], [place] [address] [facility] [place] [address] [facility] [address] [facility] (ABNORMAL) Basic Metabolic Panel (11/23/2021 6:01 [...] 11/23/2021 DTL Black/ mL/min/BSA 8:52 AM CDT Nepalese Comment: ----ADDITIONAL INFORMATION---- Estimated GFR calculated using [...] [facility] [address] [place], [place] [address] [facility] [place] [place] [address] [facility] [address] (ABNORMAL) CBC without Differential (11/23/2021 6:01 AM CDT) [facility] Method Time Signature Hemoglobin 7.3 (L) [...] M.S. LAB BLOOD ADD-ON Performing Organization Address City/[facility] Phon e Number [facility] - [address] [address] [address] (ABNORMAL) Dipstick, Urine (11/21/2021 6:42 PM CDT) [facility] gist Method Time Signature Hemoglobin, Large [...] M.D. LAB URINE ORDERABLES Performing Organization Address [facility] Phon e Number [facility] - [address] [place] [address] [place] [address] [facility] 200 [facility] Osmolality, Urine (11/21/2021 6:42 PM CDT) athologist Signature Osmolality, U 433 150 - 1150 11/21/2021 DT mOsm/kg 7:58 PM CDT Specimen Anatomical Collection Method Collection Time Receive d Time (Source) Location / / Volume Laterality Urine 11/21/2021 6:42 PM 2 7:03 CDT PM CDT Jovanna Bergeron M.D. LAB URINE ORDERABLES Performing Organization Address City/[facility]/ZIP [facility] Phon e Number [facility] - [address] [place], [place] [address] [place] [address] pH, Random, Urine (11/21/2021 6:42 PM CDT) athologist Signature pH, Random, U 6.5 4.5 - 8.0 11/21/2021 DT 7:58 PM CDT Specimen Anatomical Collection Method Collection Time Receive d Time (Source) Location / / Volume Laterality Urine 11/21/2021 6:42 PM 2 7:03 CDT PM CDT Jovanna Bergeron M.D. LAB URINE ORDERABLES Performing Organization Address City/[facility]/ZIP Code Phon e Number [facility] - [address] [place], [place] [address] [place] [address] (ABNORMAL) Microscopic Manual (11/21/2021 6:42 PM [...] M.D. LAB URINE ORDERABLES Performing Organization Address City/[facility]/ZIP Code Phon e Number [facility] - [address] [place], [place] [address] [facility] [place] [place] [address] [address] (ABNORMAL) Urinalysis with Microscopic: Urine, Catheter (11/21/2021 6:42 PM CDT) [facility] Method Time Signature Source Urine, 11/21/2021 [...] [facility] [address] [place], [place] [address] [facility] [place] [address] Laboratories-[address] Bacterial Culture, Aerobic + Susc, [...] - GENERAL O RDERABLES Performing Organization Address City/[facility] Phon e Number [facility] - [address] [place], [place] [address] [facility] [place] [place] [address] [facility] 200 [facility] (ABNORMAL) SPSMA Result (11/21/2021 11:25 AM CDT) [...] M.D. LAB BLOOD ADD-ON Performing Organization Address City/[facility] Phon e Number [facility] - [address] [place], [place] [address] [place] [address] [facility] [address] [facility] Pernicious Anemia Iroquois (11/21/2021 11:25 AM CDT) athologist Signature Vitamin B12 621 180 - 914 11/21/2021 [facility] Assay, S ng/L 6:21 PM CDT Specimen Anatomical Collection Method Collection Time Receive d Time (Source) Location / / Volume Laterality Blood (Blood, 11/21/2021 11:25 11/21/2021 4:05 Venous) AM CDT PM CDT Dina Campa M.D. LAB BLOOD NON ADD-ON Performing Organization Address City/[facility] Code Phon e Number [facility] [address] [place], [place] [address] [facility] [place] [address] Laboratory Medicine and Pathology [address] [place] (ABNORMAL) Cystatin C with Estimated GFR, S (11/21/2021 11:25 AM CDT) [facility] eGFR by 60 (L) >60 11/21/2021 DT [...] [facility] - [address] [place], [place] [address] [facility] [place] [address] [facility] [address] (ABNORMAL) Comprehensive [...] 11/21/2021 DTL Black/ mL/min/BSA 2:53 PM CDT Nepalese Comment: ----ADDITIONAL INFORMATION---- Estimated GFR calculated using [...] [facility] - [address] [place], [place] [address] [facility] [place] [place] [address] [facility] [address] [facility] (ABNORMAL) CBC with Differential, Blood (11/21/2021 11:25 AM CDT) [facility] gist Method Time Signature Hemoglobin 8.4 [...] M.D. LAB BLOOD ADD-ON Performing Organization Address City/[facility] Phon e Number [facility] - [address] [place], [place] [address] [place] [address] [facility] [address] Copper, 24 Hour, Urine (11/21/2021 11:00 AM CDT) athologist Signature Copper, 24 Hr, U 19 9 - 71 11/24/2021 [facility] mcg/24 h 10:42 AM CDT Collection 24 h 11/24/2021 [facility] Duration 10:42 AM CDT Volume 815 mL 11/24/2021 [facility] 10:42 AM CDT Comment: ----ADDITIONAL INFORMATION---- This test was developed and its performa nce characteristics determined by [facility] in a manner consistent with CLIA requirements. This test has not been cleared or approved by the [place] d and Drug Administration. Specimen Anatomical Collection Method Collection Time Receive d Time (Source) Location / / Volume Laterality Urine (Urine, 24 11/21/2021 11:00 022 3:36 Hours) AM CDT PM CDT Shannan Rand M.D. LAB URINE ORDERABLES Performing Organization Address City/[facility] Phon e Number [facility] [address] [place], [place] [address] [facility] [place] [address] Laboratory Medicine and Pathology [address] [...] at or the on-line test catalog at [employer] for m ore information. Specimen Anatomical Collection Method Collection Time Receive d Time (Source) Location / / Volume Laterality Blood (Blood, 11/20/2021 6:38 AM 11/21/19 8:33 Venous) CDT AM CDT Gerard Andino M.D., M.S. LAB BLOOD ADD-ON Performing Organization Address City/State/[facility] Code Phon e Number [facility] - [address] [place] [address] [facility] [place] [place] [address] [facility] 200 [facility] DX Abdomen Portable Anterior Posterior 1 [...] reflex Antibody ID) (11/19/2021 2:55 PM CDT) [facility] gist Method Time Signature ABORh B [...] BANK TEST ORDERABL ES Performing Organization Address City/[facility] Phon e Number [facility] - [address] [place] [address] 05 [facility] STRM [place], [place] [address] [place] [address] Sedimentation Rate (11/19/2021 2:55 PM CDT) Analysis [...] City/State/ZIP Code Phon e Number [facility] - [address] [place], [place] [address] [facility] [place] [address] CRP (C-Reactive Protein) (11/19/2021 2:55 PM CDT) P athologist Signature C-Reactive 6.6 <=8.0 mg/L 11/19/2021 DTL Protein (CRP), 3:54 PM CDT S Specimen Anatomical Collection Method Collection Time Receive d Time (Source) Location / / Volume Laterality Blood (Blood, 11/19/2021 2:55 PM 11/20/19 22 3:29 Venous) CDT PM CDT Gerard Andino M.D., M.S. LAB BLOOD ADD-ON Performing Organization Address [facility] Phon e Number [facility] - [address] [place], [place] [address] [facility] [place] [place] [address] (ABNORMAL) CBC without Differential (11/19/2021 2:55 PM CDT) [facility] Method Time Signature Hemoglobin 8.7 (L) [...] M.S. LAB BLOOD ADD-ON Performing Organization Address [facility] Phon e Number [facility] - [address] [place] [address] [facility] [place] [address] [facility]-[address] Bacteria / Raudel Culture, Blood #2 (11/19/2021 12:59 PM CDT) [facility] Method Time Signature Bacteria/Adriana No growth [...] - GENERAL O RDERABLES Performing Organization Address City/[facility] Phon e Number [facility] - [address] [place], [place] [address] [place] [address] [facility] [address] [facility] Lactate, 3 hour draw (11/19/2021 12:45 PM CDT) P athologist Signature Lactate, P 1.3 0.5 - 2.2 11/19/2021 DTL mmol/L 2:16 PM CDT Specimen Anatomical Collection Method Collection Time Receive d Time (Source) Location / / Volume Laterality Blood (Blood, 11/19/2021 12:45 11/19/2021 1:46 Venous) PM CDT PM CDT Jovanna Bergeron M.D. LAB BLOOD NON ADD-ON Performing Organization Address City/[facility] Phon e Number [facility] - [address] [place], [place] [address] [place], [place] [phone] [place] [address] Bacteria / Raudel Culture, [...] - GENERAL O RDERABLES Performing Organization Address City/[facility] Phon e Number [facility] - [address] [place], [place] [address] [facility] [place] [place] [address] [facility] [address] Phosphorus Inorganic (11/19/2021 7:13 AM CDT) P athologist Signature Phosphorus 2.9 2.5 - 4.5 11/19/2021 DTL (Inorganic), S mg/dL 8:33 AM CDT Specimen Anatomical Collection Method Collection Time Receive d Time (Source) Location / / Volume Laterality Blood (Blood, 11/19/2021 7:13 AM 11/20/19 8:09 Venous) CDT AM CDT Gerard Andino M.D., M.S. LAB BLOOD ADD-ON Performing Organization Address City/[facility] Phon e Number [facility] - [address] [place], [place] [address] [place] [address] Laboratories-[address] Magnesium (11/19/2021 7:13 AM CDT) P athologist Signature Magnesium, S 1.8 1.7 - 2.3 11/19/2021 DTL mg/dL 8:33 AM CDT Specimen Anatomical Collection Method Collection Time Receive d Time (Source) Location / / Volume Laterality Blood (Blood, 11/19/2021 7:13 AM 11/20/19 8:09 Venous) CDT AM CDT Gerard Andino M.D., M.S. LAB BLOOD ADD-ON Performing Organization Address City/[facility] Phon e Number [facility] - [address] [place], [place] [address] [place], [place] [id number] [place] [address] (ABNORMAL) Hepatic Function Panel (11/19/2021 7:13 AM [...] M.S. LAB BLOOD ADD-ON Performing Organization Address City/State/[facility] Code Phon e Number [facility] - [address] [place], [place] [address] [facility] [place] [place] [address] [facility] [address] [facility] (ABNORMAL) Basic Metabolic Panel (11/19/2021 7:13 [...] 11/19/2021 DTL Black/ mL/min/BSA 9:20 AM CDT Nepalese Comment: ----ADDITIONAL INFORMATION---- Estimated GFR calculated using [...] M.S. LAB BLOOD ADD-ON Performing Organization Address City/State/[facility] Code Phon e Number [facility] - [address] [place] [address] [facility] [place] [place] [address] [facility] 200 [facility] (ABNORMAL) CBC with Differential, Blood (11/19/2021 7:13 AM CDT) [facility] gist Method Time Signature Hemoglobin 7.6 [...] Number [facility] - [address] [place] [address] [facility] [place] [place] [address] [facility] [address] [place] Paracentesis with [...] PROCEDURES Gram Stain (11/18/2021 3:29 PM CDT) [facility] Method Time Signature Gram Stain No organisms seen. 11/18/2021 DTL White blood cells present. 10:50 PM CDT Specimen (Source) Anatomical Collection Method Collection Time Re ceived Time Location / / Volume Laterality Peritoneal Fluid 11/18/2021 3:29 11/19/19 22 5:38 PM CDT PM CDT Narrative [facility] - 11/18/2021 10:50 PM CDT Bacterial Culture: Received Bactec aerob ic and Bactec anaerobic bottles Gerard Andino M.D., M.S. LAB MICROBIOLOGY - GENERAL O JOSE Performing Organization Address [facility] Phon e Number [facility] - [id number] [place] [address] Bacterial Culture, Aerobic + Susc (11/18/2021 3:29 PM CDT) [facility] Method Time Signature Bacterial No growth 11/23/2021 DT Culture, after 5 7:47 AM CDT Aerobic + Susc days of incubation. Specimen (Source) Anatomical Collection Method Collection Time Re ceived Time Location / / Volume Laterality Peritoneal Fluid 11/18/2021 3:29 11/19/19 22 5:38 PM CDT PM CDT Narrative [facility] - 11/23/2021 7:47 AM CDT Bacterial Culture: Received Bactec aerob ic and Bactec anaerobic bottles Gerard Andino M.D. M.S. LAB MICROBIOLOGY - GENERAL O JOSE Performing Organization Address [facility] Phon e Number [facility] - [address] [place] [address] Cell Count and Differential, Body Fluid (11/18/2021 3:29 PM CDT) [facility] Pulmocide Method Time Signature Fluid Type Peritoneal- 11/18/2021 [...] stics were determined by [facility] in a manner co nsistent with [...] AND STOOLS O RDERABLES Performing Organization Address City/[facility]/ZIP Code Phon e Number [facility] - [address] [place], [place] [address] [facility] [place] [address] [facility] [address] Phosphorus Inorganic [...] [facility] [address] [place], [place] [address] [facility] [place] [address] [facility] [address] Magnesium (11/18/2021 8:56 [...] [facility] [address] [place], [place] [address] [facility] [place] [address] [facility] [address] (ABNORMAL) Comprehensive Metabolic [...] 11/18/2021 DTL Black/ mL/min/BSA 12:18 PM CDT Nepalese Comment: ----ADDITIONAL INFORMATION---- Estimated GFR calculated using [...] Number [facility] - [address] [place] [address] [facility] [place] [place] [address] [facility] 200 [facility] (ABNORMAL) CBC with Differential, Blood (11/18/2021 8:56 AM CDT) [facility] Method Time Signature Hemoglobin 9.7 (L) [...] [facility] - [address] [place], [place] [address] [facility] [place] [address] [facility] [address] EEG prolonged [...] Rodriguez M.D. NEUROLOGY ORDERABLES Performing Organization Address [facility] Code Phon e Number MMODAL MMODAL NA [...] Rodriguez M.D. NEUROLOGY ORDERABLES Performing Organization Address [facility]/ZIP Code Phon e Number MMODAL MMODAL [...] 11/16/2021 DTL Black/ mL/min/BSA 10:20 AM CDT Nepalese Comment: ----ADDITIONAL INFORMATION---- Estimated GFR calculated using [...] [facility] - [address] [place], [place] [address] [facility] [place] [place] [address] [facility] [address] (ABNORMAL) CBC with Differential, Blood (11/16/2021 7:11 AM CDT) [facility] gist Method Time Signature Hemoglobin 7.7 [...] Number [facility] - [address] [place] [address] [facility] [place] [address] [facility] 200 [facility] MR Brain without IV Contrast (11/15/2021 [...] Drug Screen Urine (11/15/2021 11:15 AM CDT) [facility] Method Time Signature Ethanol, Negative NEGATIVE [...] M.S. LAB URINE ORDERABLES Performing Organization Address City/[facility] Phon e Number [facility] - [address] [place] [address] [place], [place] [phone] [place] [address] (ABNORMAL) Ammonia (11/15/2021 6:14 [...] ADD-ON Performing Organization Address City/[facility]/ZIP [facility] Phon e Number [facility] - [address] [place], [place] [address] [place] [address] [facility] [address] [facility] Phosphorus Inorganic (11/15/2021 6:14 AM CDT) P athologist Signature Phosphorus 2.5 2.5 - 4.5 11/15/2021 DTL (Inorganic), S mg/dL 7:16 AM CDT Specimen Anatomical Collection Method Collection Time Receive d Time (Source) Location / / Volume Laterality Blood (Blood, 11/15/2021 6:14 AM 11/16/19 22 7:02 Venous) CDT AM CDT Gerard Andino M.D., M.S. LAB BLOOD ADD-ON Performing Organization Address City/[facility]/ZIP [facility] Phon e Number [facility] - [address] [place], [place] [address] [place] [address] [facility] [address] Magnesium (11/15/2021 6:14 AM CDT) P athologist Signature Magnesium, S 2.1 1.7 - 2.3 11/15/2021 DTL mg/dL 7:16 AM CDT Specimen Anatomical Collection Method Collection Time Receive d Time (Source) Location / / Volume Laterality Blood (Blood, 11/15/2021 6:14 AM 11/16/19 7:02 Venous) CDT AM CDT Gerard Andino M.D., M.S. LAB BLOOD ADD-ON Performing Organization Address City/[facility] Phon e Number [facility] - [address] [place] [address] [facility] [place] [address] Laboratories-[address] (ABNORMAL) Hepatic Function Panel (11/15/2021 6:14 [...] M.S. LAB BLOOD ADD-ON Performing Organization Address City/[facility] Code Phon e Number [facility] - [address] [place], [place] [address] [facility] [place] [address] [facility] 200 [facility] (ABNORMAL) Basic Metabolic Panel (11/15/2021 6:14 [...] 11/15/2021 DTL Black/ mL/min/BSA 10:03 AM CDT Nepalese Comment: ----ADDITIONAL INFORMATION---- Estimated GFR calculated using [...] [facility] - [address] [place], [place] [address] [facility] [place] [place] [address] [facility] 200 [facility] (ABNORMAL) CBC without Differential (11/15/2021 6:14 [...] [facility] - [address] [place], [place] [address] [facility] [place] [place] [address] [facility]-[address] Phosphorus Inorganic (11/14/2021 9:00 PM CDT) P athologist Signature Phosphorus 2.6 2.5 - 4.5 11/14/2021 DTL (Inorganic), S mg/dL 10:55 PM CDT Specimen Anatomical Collection Method Collection Time Receive d Time (Source) Location / / Volume Laterality Blood (Blood, 11/14/2021 9:00 PM 11/15/19 9:46 Venous) CDT PM CDT Gerard Andino M.D., M.S. LAB BLOOD ADD-ON Performing Organization Address City/[facility] Code Phon e Number [facility] - [address] 200 [facility] Magnesium (11/14/2021 9:00 PM CDT) P athologist Signature Magnesium, S 1.8 1.7 - 2.3 11/14/2021 DTL mg/dL 10:55 PM CDT Specimen Anatomical Collection Method Collection Time Receive d Time (Source) Location / / Volume Laterality Blood (Blood, 11/14/2021 9:00 PM 11/15/19 9:46 Venous) CDT PM CDT Gerard Andino M.D., M.S. LAB BLOOD ADD-ON Performing Organization Address City/[facility]/ZIP Code Phon e Number [facility] - [address] Potassium (11/14/2021 9:00 PM CDT) P athologist Signature Potassium, S 4.1 3.6 - 5.2 11/14/2021 DTL mmol/L 10:55 PM CDT Specimen Anatomical Collection Method Collection Time Receive d Time (Source) Location / / Volume Laterality Blood (Blood, 11/14/2021 9:00 PM 11/15/19 9:46 Venous) CDT PM CDT Gerard Adnino M.D., M.S. LAB BLOOD ADD-ON Performing Organization Address City/[facility]/ZIP Code Phon e Number [facility] - [address] (ABNORMAL) Hepatic Function Panel (11/14/2021 6:56 [...] [facility] - 200 [place], [place] [address] [facility] [place] [address] [facility] 200 [facility] (ABNORMAL) Basic Metabolic Panel (11/14/2021 6:56 [...] 11/14/2021 DTL Black/ mL/min/BSA 9:14 AM CDT Nepalese Comment: ----ADDITIONAL INFORMATION---- Estimated GFR calculated using [...] [facility] - 200 [place], [place] [address] [facility] [place] [place] [address] [facility] 200 [facility] (ABNORMAL) CBC without Differential (11/14/2021 6:56 AM CDT) [facility] gist Method Time Signature Hemoglobin 9.1 [...] Number [facility] - [address] [place] [address] [facility] [place] [place] [address] [facility] 200 [facility] SARS Coronavirus 2, Antigen, Rapid, V Asymptomatic (11/13/2021 9:45 AM CDT) [facility] Method Time Signature SARS CoV-2, Undetected [...] us ing the SARS-CoV-2 Ag Test from [employer], which has received Emergency U se Authorization (EUA) by the U.S. Food and Drug Administration. Fact sheets for this Emergency Use Autho rization (EUA) assay can be found at the following links: For Healthcare Providers: https://www.[employer].[place]/assets/images/n ew/pdf/kpp-bjx-ahcd-rrtho-jqswueiu-o nnl-rpc-9-ag-test.pdf?v=4 For Patients: https://www.[employer].com/assets/images/n ew/pdf/wfl-cpfxbjq-omuz-sheet-lumira xx-bxwq-pyt-0-eitfmar-duhr.pdf?v=5 SARS CoV-2, Antigen, Rapid, Swab, Nasopharynx 10/31 9:54 AM CDT [facility] Source Specimen Anatomical Collection Method Collection Time Receive d Time (Source) Location / / Volume Laterality Varies 11/13/2021 9:45 AM 9:54 (Nasopharynx) CDT AM CDT Gerard Andino M.D., M.S. LAB MICROBIOLOGY - GENERAL O RDERABLES Performing Organization Address City/[facility] Phon e Number [facility] - [address] [place] [address] [place] [address] [facility] 200 [facility] (ABNORMAL) Hepatic Function Panel (11/13/2021 6:19 AM CDT) [facility] Method Time Signature Bilirubin, Total, S [...] M.S. LAB BLOOD ADD-ON Performing Organization Address City/State/[facility] Code Phon e Number [facility] - 200 [place], [place] [address] [facility] [place] [place] [address] [facility] 200 [facility] (ABNORMAL) Basic Metabolic Panel (11/13/2021 6:19 [...] 11/13/2021 DTL Black/ mL/min/BSA 9:23 AM CDT Nepalese Comment: ----ADDITIONAL INFORMATION---- Estimated GFR calculated using [...] [facility] - 200 [place], [place] [address] [facility] [place] [place] [address] [facility] 200 [facility] (ABNORMAL) CBC without Differential (11/13/2021 6:19 AM CDT) [facility] gist Method Time Signature Hemoglobin 7.9 [...] M.S. LAB BLOOD ADD-ON Performing Organization Address City/State/[facility] Code Phon e Number [facility] - 200 [place], [place] [address] [place] [address] [facility] DX Abdomen Portable Anterior Posterior [...] HEAD WITHOUT IV CONTRAST COMPARISON: Compared to [facility] head CT fro 03/21/2021. FINDINGS: [...] HEAD WITHOUT IV CONTRAST COMPARISON: Compared to [facility] head CT fro 03/21/2021. FINDINGS: [...] Rapid, V Symptomatic (11/12/2021 3:44 AM CDT) [facility] Pulmocide Method Time Signature SARS CoV-2, Detected (A) Undetected 11/12/2021 STMA PCR, Rapid, V 4:20 AM CDT Comment: ----ADDITIONAL INFORMATION---- This RT-PCR test was performed using the Daniel SARS-CoV-2 and Influenza A/B Reagent assay from [employer], which has received Emergency Use Authori zation(EUA) by the U.S. Food and Drug Administration . Fact sheets for this Emergency Use Autho rization (EUA) assay can be found at the following link s: For Healthcare Providers: https://www.fda.gov/media/109072/downloa d For Patients: https://www.fda.gov/media/672061/downloa d SARS Coronavirus 2, Source, Rapid Swab, Nasopharynx 11/12/2021 3:48 AM CDT [facility] Specimen Anatomical Collection Method Collection Time Receive d Time (Source) Location / / Volume Laterality Varies 11/12/2021 3:44 AM 3:48 (Nasopharynx) CDT AM CDT Rosaura Sevilla M.D., M.P.H. LAB MICROBIOLOGY - GENERA L ORDERABLES Performing Organization Address City/State/ZIP Code Phon e Number [facility] - [address] [place], [place] [address] [place] [address] [facility] [address] Drug Screen Urine (11/12/2021 3:19 AM CDT) [facility] Method Time Signature Ethanol, Negative NEGATIVE [...] M.D. LAB URINE ORDERABLES Performing Organization Address City/State/[facility] Code Phon e Number [facility] - [facility] [place], [place] [address] [facility] [place] [address] [facility] [address] Peripheral Venous Access [...] Prothrombin Time (PT) (11/12/2021 1:54 AM CDT) [facility] gist Method Time Signature Prothrombin 37.4 [...] [facility] [address] [place], [place] [address] [place] [address] [facility] [address] (ABNORMAL) APTT (Activated [...] M.D. LAB BLOOD ADD-ON Performing Organization Address City/[facility]/ZIP [facility] Phon e Number [facility] - [address] [place], [place] [address] [facility] [place] [address] [facility] [address] Ethanol Level, [...] LAB BLOOD NON ADD-ON Performing Organization Address City/State/[facility] Code Phon e Number [facility] - [address] [place], [place] [address] [facility] [place] [address] [facility] [address] S-TSH [...] [facility] [address] [place], [place] [address] [facility] [place] [address] [facility] [address] [...] CDT eGFR-Black/Afri >90 >=60 11/12/2021 DTL can Nepalese mL/min/BSA 3:01 AM CDT Comment: ----ADDITIONAL INFORMATION---- [...] [facility] [address] [place], [place] [address] [facility] [place] [address] [facility] [address] [place] [address] [facility] [address] (ABNORMAL) Hepatic [...] Number [facility] - [address] [place] [address] [facility] [place] [place] [address] Laboratories-[address] hCG (Human Chorionic Gonadotropin), Quantitative, [...] [facility] - 200 [place], [place] [address] [facility] [place] [address] [facility] 200 [facility] (ABNORMAL) CBC with Differential, Blood (11/12/2021 1:54 AM CDT) [facility] Method Time Signature Hemoglobin 8.7 (L) [...] M.D. LAB BLOOD ADD-ON Performing Organization Address City/[facility]/ZIP Code Phon e Number [facility] - [address] [place], [place] [address] [facility] [place] [address] [facility] 200 [facility] [place] [address] [facility] [address] (ABNORMAL) Ammonia [...] ADD-ON Performing Organization Address City/[facility]/ZIP Code Phon e Number [facility] - [address] [place], [place] [address] [facility] [place] [address] [facility] 200 [facility] Lactate, POCT (11/12/2021 1:54 AM CDT) Analysis Performed At Patho logist Time Signature Lactate, POCT Collected DEFAULT 11/12/2021 SMLX 1:54 AM CDT Specimen Anatomical Collection Method Collection Time Receive d Time (Source) Location / / Volume Laterality Blood (Blood, 11/12/2021 1:54 AM 11/13/19 1:54 Venous) CDT AM CDT Authorizing Provider Result Woodrow Oswald M.D. LAB POCT ORDERABLES - DEVICE Performing Organization Address City/[facility]/ZIP Code Phon e Number [facility] - 200 [place], [place] [address] [facility] [place] [address] [facility] [address] Venous [...] POCT ORDERABLES - DEVICE Performing Organization Address City/[facility]/ZIP [facility] Phon e Number [facility] - 200 [place], [place] [address] [facility] [place] [address] [facility] 200 [facility] Lactate, POCT (11/12/2021 1:52 AM CDT) athologist Signature Lactate, POCT 2.19 0.50 - 11/12/2021 PCLX 2.20 2:04 AM CDT mmol/L Sample Site, Venstick 11/12/2021 PCLX POCT 2:04 AM CDT Specimen Anatomical Collection Method Collection Time Receive d Time (Source) Location / / Volume Laterality Blood 11/12/2021 1:52 AM 2:04 CDT AM CDT Unknown Provider LAB POCT ORDERABLES - DEVICE Performing Organization Address [facility] Phon e Number POC [facility] 200 [place] [address] [facility] [place] [address] [facility] 200 [facility] (ABNORMAL) Venous Blood Gas and Electrolytes [...] City/State/ZIP Code Phon e Number POC [facility] 200 [place], [place] [address] LABS [facility] [place] [address] [place] [facility] [address] [place] [address] (ABNORMAL) CRP (C-Reactive Protein) (11/11/2021 4:28 AM [...] City/State/ZIP Code Phon e Number [facility] - 200 [place] [address] 05 [place] [address] [facility] [address] documented in this [...] Patient/family refused)1503 (Given - Provider: [place] Toribio RGabby)2245 (Not Given - Provider: Jo Ann Stevens R.Daniele - Reason: Patient/family refused) 0549 (Given - [...] (COMPLETED) 0811 (Given - Provider: Deja Langford R.NSuma) 1 mg, oral, Once, On Wed11/25/21 at 0800, For 1 dose lactulose solution 10 g (CHRONULAC) (CANCELED) 1013 (G iven - Provider: [place] Toribio RSumaNSuma) 10 g, gastric tube, 3 times daily, First dose (after last modification) on Wed11/18/21 at 2100 lactulose solution 10 g (CHRONULAC) 1506 (Not Given - Provider: [place] Toribio RSumaNSuma - Reason: Other - Comment: 6 bm's)2037 (Not Given - Provider: Jo Ann Stevens R.N. - Reason: Contraindicated) 0812 (Not Given - Provider: Deja Langford, R.NSuma - Reason: Contraindicated - Comment: bm goal met)1302 (Given - Provider: Deja Langford RSumaN.)2123 (Given - Provider: Amy Zaragoza R.N.) 0924 [...] (Not Given - Provider: Jo Ann Stevens RGabby - Reason: Other) 0609 (Given - Provider: [...] Langford R.N.)212 (Given - Provider: Amy Zaragoza RSumaN.) 0924 (Given - Provider: Deja Langford R.NSuma) [...] 1014 (Given - Pr ovider: [place] Toribio R.NSuma) 0811 (Given - Provider: Deja Langford, R.N.) [...] Pending 11/12/2021 11/12/2021 11/12/2021 4:20 AM CDT [id number]: Patients who are NOT sev erely immunocompromised: Asymptomatic - At least 10 days have passed since the date of the first positive PCR test 11/12/2021 11/12/2021 11/13/2021 3:19 PM CDT and Patient has remained asymptomatic throughout their infection Assessment Noted Time PHQ-9 Depression Total Score: 10 10/06/2021 5:00 PM CD T documented as of this encounter Care Teams Excellence Consultant Relationship Specialty Start Date End Date Elsewhere, Pcp PCP - General Family Medicine 03/10/20 11/30/21 [facility] [place] [facility] 08/25/21 Ervin Schroeder MD Referring Provider Family Medicine 03/24/[address] [place] [phone] documented as of this encounter
--- OUTSIDE RECORDS SUMMARY | 2022-02-16 12:24 | XMS_ITS | Encounter Summary ---
:1990 Author Organization [facility] Address [address] [place] [address] Care Team Providers Name Role Phone Elsewhere, Pcp Primary Care Provider Unavailable Reason for Visit Reason Comments Nicotine Dependence Outpatient (Routine) - Closed Specialty Diagnoses / Procedures Referred By Contact Refer red To Contact Nicotine Dependence Jessy Crain M.A., C.T.T.S. [address] [place] [address] Referral ID Status Reason Start Date Expiration Date Visits Requ ested Visits Authorized [id number] Closed 10/01/2021 10/01/2022 1 1 Encounter Details Date Type Department Care Team Description 10/27/2021 Telemedicine Department of Yehuda Crain Dep endence Nicotine Dependence, Jessy Gannon M.A., Cig arettes (Primary [facility], in C.T.T.S. Dx) [place], [place] [address] [facility] [address] [place] [phone] Social History Tobacco Use Types Packs/Day Years Used Date Smoking Tobacco: Former Cigarettes 1 12 /0 05/2009 - 10/20/2021 Smokeless Tobacco: Never Comments: [...] you attend nondenominational or Patient refused 2021 zoroastrian services? 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 - 10/27/2021 9:00 AM CDT Follow-up visit conducted via real-time audio/video technology by Jessy Crain M.A., C.T.T.S. in [place], [place] at [facility] to the patient at home. [...] Appointment Radiology Matthew Jerome 2 YVikBGraeme, Lilian [address] [place] [phone] Appointment Gastroenterology and Adrianne, 2 Hepatology Yue Burciaga M.D. [address] [place] [phone] Virtual Visit Transplant Matthew Jerome 2 YTyrell M.D. [address] [place] [phone] Office Visit Gastroenterology and [facility] 2 Hepatology Tyrell Rodriguez M.D. [address] [place] [phone] Appointment Radiology [facility] Matthew 2 Tyrell Rodriguez M.D. [address] [place] [phone] [facility] Gastroenterology and [facility] Cirrhos is Alcoholic (HCC) 2 Encounter Hepatology Tyrell Rodriguez M.D. [address] [place] [phone] Anesthesia Event Gastroenterology and Rl, 2 Hepatology Ervin Burgos M.D. [address] [place] [phone] Surgery Gastroenterology and [facility] ESOPHAG OGASTRODUODENOSCOPY 2 Hepatology Tyrell Rodriguez M.D. [address] [place] [phone] Scheduled Procedures Name Priority Associated Diagnoses Date/Time ESOPHAGOGASTRODUODENOSCOPY Cirrhosis Alc oholic (HCC) 03/20/2022 8:45 AM AGED OR DISABLED CARER Hypertension Portal (HCC) documented as of this encounter Visit Diagnoses Diagnosis Nicotine Dependence Cigarettes - Primary Cirrhosis Alcoholic (HCC) Cirrhosis Alcoholic (HCC) Hypertension Portal (HCC) documented in this encounter Additional Health Concerns Assessment Noted Time PHQ-9 Depression Total Score: 10 10/06/2021 5:00 PM CD T documented as of this encounter Care Teams Senior Interactive Producer Relationship Specialty Start Date End Date Elsewhere, Pcp PCP - General Family Medicine 03/10/20 11/30/21 [facility] [place] lab 08/25/21 Ervin Schroeder MD Referring Provider Family Medicine 03/24/[address] [place] [phone] documented as of this encounter
--- OUTSIDE RECORDS SUMMARY | 2022-02-16 12:24 | XMS_ITS | Encounter Summary ---
:1990 Author Organization [facility] Address [address] [place] [address] Care Team Providers Name Role Phone Elsewhere, Pcp Primary Care Provider Unavailable Reason for Referral Transplant (Routine) - Closed Specialty Diagnoses / Procedures Referred By Contact Refer red To Contact Transplant Surgery / Joel Tan Roc[facility] Transplant Shala, M.S.W. [address] [place] [address] Referral ID Status Reason Start Date Expiration Date Visits Requ ested Visits Authorized [id number] Closed 10/29/2021 10/29/2022 1 1 Scheduling Instructions Please schedule a 60 min visit for me to meet with the patient when she returns in the future for pre-transplant follow up. Thank you. Encounter Details Date Type Department Care Team Description 10/29/2021 Orders Only Department of Social Work Rajiv Tan, in [facility] L.I.C.S.W., M.S.W. 200 [facility] 200 [place] [address] [place] [address] [phone] (Wo rk) Social History Tobacco Use Types [...] you attend pentecostal or Patient refused 2021 catholic services? 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 [address] [place] [phone] Virtual Visit Transplant Matthew Jerome 2 YTyrell, Lilian [address] [place] [phone] Office Visit Gastroenterology and Matthew Jerome 2 Hepatology Tyrell Rodriguez M.D. [address] [place] [phone] Appointment Radiology LuisNew abdular 2 YJoshuaBSumaBLilian Bedolla [address] [place] [phone] [facility] Gastroenterology and Matthew Jerome Cirrhos is Alcoholic (HCC) 2 Encounter Hepatology Joshua RodriguezBSumaBLilian Bedolla [address] [place] [phone] Anesthesia Event Gastroenterology and Rl, 2 Hepatology Ervin Burgos M.D. [address] [place] [phone] Surgery Gastroenterology and Matthew Jerome ESOPHAG OGASTRODUODENOSCOPY 2 Hepatology Joshua RodriguezB.BGraeme, Lilian [address] [place] [phone] Scheduled Procedures Name Priority Associated Diagnoses Date/Time ESOPHAGOGASTRODUODENOSCOPY Cirrhosis Alc oholic (HCC) 03/20/2022 8:45 AM PHARMACIST HOSPITAL Hypertension Portal (HCC) Scheduled Referrals Name Type Priority Associated Order Schedule Diagnoses Transplant Liver Outpatient Referral Routine Expe cted: office visit 01/26/2022 (clinic) (Approximate), Expires: 01/29/2023 documented as of this encounter Visit Diagnoses Not on filedocumented in this encounter Additional Health Concerns Infection Onset Date Last Indicated Resolved Time COVID19 Pending 11/12/2021 11/12/2021 11/12/2021 4:20 AM CDT [id number]: Patients who are NOT sev erely immunocompromised: Asymptomatic - At least 10 days have passed since the date of the first positive PCR test 11/12/2021 11/12/2021 11/13/2021 3:19 PM CDT and Patient has remained asymptomatic throughout their infection Assessment Noted Time PHQ-9 Depression Total Score: 10 10/06/2021 5:00 PM CD T documented as of this encounter Care Teams Sulphate Tester Relationship Specialty Start Date End Date Elsewhere, Pcp PCP - General Family Medicine 03/10/20 11/30/21 [facility] [place] lab 08/25/21 Ervin Schroeder MD Referring Provider Family Medicine 03/24/[address] [place] [phone] documented as of this encounter
--- OUTSIDE RECORDS SUMMARY | 2022-02-16 12:24 | XMS_ITS | Encounter Summary ---
:1990 Author Organization [facility] Address [address] [place] [address] Care Team Providers Name Role Phone Elsewhere, Pcp Primary Care Provider Unavailable Reason for Referral Outpatient (Routine) - Authorized Specialty Diagnoses / Procedures Referred By Contact Refer red To Contact Nicotine Dependence Diagnoses Abuse Tobacco Smoking Ervin Schroeder [facility] [address] [place] [address] Referral ID Status Reason Start Date Expiration Date Visits V isits Requested Authorized [id number] Authorized 11/26/2021 11/26/2022 1 1 Encounter Details Date Type Department Care Team Description 11/14/2021 [facility] Ervin Schroeder Tobacco Smoking (Primary Dx); AND CLINICS TOBY Schaefer M.D. Unspecified Cirrhosis Of Liver (HCC) CLINIC [address] [facility] [address] [place], [place] [address] [phone] Social History Tobacco Use Types Packs/Day Years [...] you attend yazidi or Patient refused 2021 christian services? 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 [address] [place] [phone] Virtual Visit Transplant LuisMatthew abdul 2 Vik RodriguezBLilian Bedolla [address] [place] [phone] Office Visit Gastroenterology and [place] 2 Hepatology Tyrell Rodriguez M.D. [address] [place] [phone] Appointment Radiology Queenie Matthew 2 Joshua RodriguezBSumaBLilian Bedolla [address] [place] [phone] Hospital Gastroenterology and Queenie Matthew Cirrhos is Alcoholic (HCC) 2 Encounter Hepatology Joshua RodriguezBSumaBLilian Bedolla [address] [place] [phone] Anesthesia Event Gastroenterology and Rl, 2 Hepatology Ervin Burgos M.D. [address] [place] [phone] Surgery Gastroenterology and Matthew Jeorme ESOPHAG OGASTRODUODENOSCOPY 2 Hepatology Joshua RodriguezB.BLilian Bedolla [address] [place] [phone] Scheduled Procedures Name Priority Associated Diagnoses Date/Time ESOPHAGOGASTRODUODENOSCOPY Cirrhosis Alc oholic (HCC) 03/20/2022 8:45 AM HUMAN SERVICES ASSISTANT Hypertension Portal (HCC) Scheduled Referrals Name [...] as of this encounter Care Teams Customer Orders Clerk Relationship Specialty Start Date End Date Elsewhere, Pcp PCP - General Family Medicine 03/10/20 11/30/21 [facility] [place] lab 08/25/21 Ervin Schroeder MD Referring Provider Family Medicine 03/24/[address] [place] [phone] documented as of this encounter
--- OUTSIDE RECORDS SUMMARY | 2022-02-16 12:24 | XMS_ITS | Encounter Summary ---
:1990 Author Organization [facility] Address [address] [place] [address] Care Team Providers Name Role Phone Elsewhere, Pcp Primary Care Provider Unavailable Encounter Details Date Type Department Care Team Description 10/31/2021 Orders Only Department of Mousa, Matthew Y, Cirrhosis Al coholic ([facility]) (Primary Dx); Gastroenterology in M.BJoshua Staples. Defect Coagulation ([facility]) [place], [place] [address] [facility] [address] [place] [address] [phone] Social History Tobacco Use Types Packs/Day Years [...] you attend holiness or Patient refused 2021 zoroastrian services? Do you belong to any clubs or No 02/10/2022 organizations such as holiness groups, unions, fraBlockSpring or athletic groups, or school groups? 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/2021 7:39 PM DIRECTOR WRITING documented as of this encounter Plan of Treatment Upcoming Encounters Date Type Specialty Care Team Description Telemedicine Transplant 2 Appointment Radiology Matthew Jerome 2 Y, JoshuaBSumaB.Kath, Lilian [address] [place] [phone] Appointment Gastroenterology and Adrianne, 2 Hepatology Yue Burciaga M.D. [address] [place] [phone] Virtual Visit Transplant Matthew Jerome 2 YKishore.Lilian Salas [address] [place] [phone] Office Visit Gastroenterology and Matthew Jerome 2 Hepatology Tyrell Rodriguez M.D. [address] [place] [phone] Appointment Radiology Matthew Jerome 2 YTyrell M.D. [address] [place] [phone] Hospital Gastroenterology and Queenie Matthew Cirrhos is Alcoholic (HCC) 2 Encounter Hepatology Tyrell Rodriguez M.D. [address] [place] [phone] Anesthesia Event Gastroenterology and Rl, 2 Hepatology Ervin Burgos M.D. [address] [place] [address] [phone] Surgery Gastroenterology and Queenie Matthew ESOPHAG OGASTRODUODENOSCOPY 2 Hepatology Tyrell Rodriguez M.D. [address] [place] [phone] Scheduled Procedures Name Priority Associated Diagnoses Date/Time ESOPHAGOGASTRODUODENOSCOPY Cirrhosis Alc oholic (HCC) 03/20/2022 8:45 AM DIRECTOR WRITING Hypertension Portal (HCC) documented as of this [...] PCP - General Family Medicine 03/10/20 11/30/21 [facility] 08/25/21 Ervin Schroeder MD Referring Provider Family Medicine 03/24/[address] [place] [address] documented as of this encounter
--- OUTSIDE RECORDS SUMMARY | 2022-02-16 12:24 | XMS_ITS | Encounter Summary ---
:1990 Author Organization [facility] Address [address] [place] [address] Care Team Providers Name Role Phone Elsewhere, Pcp Primary Care Provider Unavailable Encounter Details Date Type Department Care Team Description 11/10/2021 Episode Changes [facility] Jack French, for Transplantation and Chano RSumaNSuma, Clinical Regeneration in [facility] . [phone] [address] [facility] (Work) [place] [phone] Social History Tobacco Use Types Packs/Day [...] you attend muslim or Patient refused 2021 jainism services? 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 [address] [place] [phone] Virtual Visit Transplant Matthew Jerome 2 Tyrell Rodriguez M.D. [address] [place] [phone] Office Visit Gastroenterology and Matthew Jerome 2 Hepatology Tyrell Rodriguez, Lilian [address] [place] [phone] Appointment Radiology Matthew Jerome 2 YTyrell M.D. [address] [place] [phone] Hospital Gastroenterology and Dechantell Matthew Cirrhos is Alcoholic (HCC) 2 Encounter Hepatology Tyrell Rodriguez, Lilian [address] [place] [phone] Anesthesia Event Gastroenterology and Rl, 2 Hepatology Ervin Burgos M.D. [address] [place] [address] [phone] Surgery Gastroenterology and Queenie Matthew ESOPHAG OGASTRODUODENOSCOPY 2 Hepatology Tyrell Rodriguez, Lilian [address] [place] [phone] Scheduled Procedures Name Priority Associated Diagnoses Date/Time ESOPHAGOGASTRODUODENOSCOPY Cirrhosis Alc oholic (HCC) 03/20/2022 8:45 AM MANAGER PHOTO Hypertension Portal (HCC) documented as of this encounter Visit Diagnoses Not on filedocumented in this encounter Additional Health Concerns Assessment Noted Time PHQ-9 Depression Total Score: 10 10/06/2021 5:00 PM CD T documented as of this encounter Care Teams Airplane Pilot Helper Relationship Specialty Start Date End Date Elsewhere, Pcp PCP - General Family Medicine 03/10/20 11/30/21 [facility] [place] [facility] 08/25/21 Ervin Schroeder MD Referring Provider Family Medicine 03/24/[address] [place] [phone] documented as of this encounter
--- OUTSIDE RECORDS SUMMARY | 2022-02-16 12:24 | XMS_ITS | Encounter Summary ---
:1990 Author Organization [facility] Address [address] [place] [address] Care Team Providers Name Role Phone Elsewhere, Pcp Primary Care Provider Unavailable Reason for Visit Reason Comments External Lab Entry 10/25/2021 Encounter Details Date Type Department Care Team Description 10/28/2021 Clinical Ramirez Nguyen Transplant, Foreign Policy Officer al Lab Entry Communication Center for Coordinator, (10/25/2021/) Transplantation and R.N. Clinical Regeneration in [facility] pedro [address] [place] [address] Social History Tobacco Use Types Packs/Day Years [...] you attend evangelical or Patient refused 2021 mandaeism services? Do [...] or the highest technical, or vocational p [facility] degree you have received? 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 *All labs are now found in [employer] - Lab - Flowsheets. For further review of labs, please review there or under Synopsis* documented in this encounter Plan of Treatment Upcoming Encounters Date Type Specialty Care Team Description Telemedicine Transplant 2 Appointment Radiology Matthew Jerome 2 YVikBLilian Bedolla [address] [place] [phone] Appointment Gastroenterology and Adrianne, 2 Hepatology Yue Burciaga M.D. [address] [place] [phone] Virtual Visit Transplant Matthew Jerome 2 YVikBLilian Bedolla [address] [place] [address] [phone] Office Visit Gastroenterology and Matthew Jerome 2 Hepatology Vik RodriguezBLilian Bedolla [address] [place] [phone] Appointment Radiology Matthew Jerome 2 YTyrell M.D. [address] [place] [address] [phone] Hospital G[address]enterology and [facility], Matthew Cirrhos is Alcoholic (HCC) 2 Encounter Hepatology Tyrell Rodriguez M.D. [address] [place] [address] [phone] Anesthesia Event Gastroenterology and Rl, 2 Hepatology Ervin Burgos M.D. [address] [place] [address] [phone] Surgery Gastroenterology and [facility], Matthew ESOPHAG OGASTRODUODENOSCOPY 2 Hepatology Tyrell Rodriguez M.D. [address] [place] [phone] Scheduled Procedures Name Priority Associated Diagnoses Date/Time ESOPHAGOGASTRODUODENOSCOPY Cirrhosis Alc oholic (HCC) 03/20/2022 8:45 AM FINAL RAIL CUTTER Hypertension Portal (HCC) documented as of [...] documented as of this encounter Care Teams Fellmongery Worker Relationship Specialty Start Date End Date Elsewhere, Pcp PCP - General Family Medicine 03/10/20 11/30/21 [facility] [place] lab 08/25/21 Ervin Schroeder MD Referring Provider Family Medicine 03/24/[address] [place] [address] documented as of this encounter
--- OUTSIDE RECORDS SUMMARY | 2022-02-16 12:24 | XMS_ITS | Encounter Summary ---
:1990 Author Organization [facility] Address [address] [place] [address] Care Team Providers Name Role Phone Elsewhere, Pcp Primary Care Provider Unavailable Encounter Details Date Type Department Care Team Description 11/04/2021 Clinical Communication Department of Symone Beebe Gastroenterology in , R[address] [place] [phone] Social History Tobacco Use Types Packs/Day Years [...] you attend hinduism or Patient refused 2021 roman catholic services? 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 [address] [place] [phone] Virtual Visit Transplant Matthew Jerome 2 Joshua RodriguezBSumaBLilian Bedolla [address] [place] [phone] Office Visit Gastroenterology and Matthew Jerome 2 Hepatology Tyrell Rodriguez M.D. [address] [place] [phone] Appointment Radiology Matthew Jerome 2 Joshua RodriguezB.BLilian Bedolla [address] [place] [phone] Hospital Gastroenterology and Queenie Matthew Cirrhos is Alcoholic (HCC) 2 Encounter Hepatology Josuha RodriguezBSumaBLilian Bedolla [address] [place] [phone] Anesthesia Event Gastroenterology and Rl, 2 Hepatology Ervin Burgos M.D. [address] [place] [address] [phone] Surgery Gastroenterology and Matthew Jerome ESOPHAG OGASTRODUODENOSCOPY 2 Hepatology Joshua RodriguezB.BLilian Bedolla [address] [place] [phone] Scheduled Procedures Name Priority Associated Diagnoses Date/Time ESOPHAGOGASTRODUODENOSCOPY Cirrhosis Alc oholic (HCC) 03/20/2022 8:45 AM HYDRAULIC ASSEMBLER Hypertension Portal (HCC) documented as of this encounter Visit Diagnoses Not on filedocumented in this encounter Additional Health Concerns Assessment Noted Time PHQ-9 Depression Total Score: 10 10/06/2021 5:00 PM CD T documented as of this encounter Care Teams Desktop Engineer Relationship Specialty Start Date End Date Elsewhere, Pcp PCP - General Family Medicine 03/10/20 11/30/21 [facility] 08/25/21 Ervin Schroeder MD Referring Provider Family Medicine 03/24/[address] [place] [address] documented as of this encounter
--- OUTSIDE RECORDS SUMMARY | 2022-02-16 12:24 | XMS_ITS | Encounter Summary ---
:1990 Author Organization [facility] Address [address] [place] [address] Care Team Providers Name Role Phone Elsewhere, Pcp Primary Care Provider Unavailable Encounter Details Date Type Department Care Team Description 11/18/2021 Clinical Communication [facility] PRE/POS T Alina Carranza R, [facility] [place] [address] [phone] Social History Tobacco Use Types Packs/Day Years [...] you attend islam or Patient refused 2021 mu-ism services? 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 - 11/18/2021 8:[address] Jerome Catia is scheduled for an EGD with you on 11/24/21. She tested positive for covid on 11/09/21. Also, she is currently an inpatient in [place]. If you have concerns, please notify patient andscheduling. Thank you. documented in this encounter Plan of Treatment Upcoming Encounters Date Type Specialty Care Team Description Telemedicine Transplant 2 Appointment Radiology Matthew Jerome 2 YTyrell M.D. [address] [place] [phone] Appointment Gastroenterology and Adrianne, 2 Hepatology Yue Burciaga M.D. [address] [place] [phone] Virtual Visit Transplant Matthew Jerome 2 Tyrell Rodriguez M.D. [address] [place] [phone] Office Visit Gastroenterology and Matthew Jerome 2 Hepatology Tyrell Rodriguez M.D. [address] [place] [phone] Appointment Radiology LuisMatthew abdul 2 Tyrell Rodriguez M.D. [address] [place] [phone] Hospital Gastroenterology and Matthew Jerome Cirrhos is Alcoholic (HCC) 2 Encounter Hepatology Tyrell Rodriguez M.D. [address] [place] [phone] Anesthesia Event Gastroenterology and Rl, 2 Hepatology Ervin Burgos M.D. [address] [place] [phone] Surgery Gastroenterology and Matthew Jerome ESOPHAG OGASTRODUODENOSCOPY 2 Hepatology Tyrell Rodriguez M.D. 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 Hypertension Portal (HCC) documented as of this encounter Visit Diagnoses Not on filedocumented in this encounter Additional Health Concerns Assessment Noted Time PHQ-9 Depression Total Score: 10 10/06/2021 5:00 PM CD T documented as of this encounter Care Teams Design Printer Balloon Relationship Specialty Start Date End Date Elsewhere, Pcp PCP - General Family Medicine 03/10/20 11/30/21 [facility] 08/25/21 Ervin Schroeder MD Referring Provider Family Medicine 03/24/[address] [place] [address] documented as of this encounter
--- OUTSIDE RECORDS SUMMARY | 2022-02-16 12:24 | XMS_ITS | Encounter Summary ---
:1990 Author Organization [facility] Address [address] [place] [address] Care Team Providers Name Role Phone Elsewhere, Pcp Primary Care Provider Unavailable Reason for Visit Reason Comments Covid Positive Encounter Details Date Type Department Care Team Description 11/12/2021 Clinical Department of Matthew Jerome Positive Communication [facility]ology in , [facility] [address] [facility] 10[address] [place] [address] [place], [place] [phone] Social History Tobacco Use Types Packs/Day [...] attend jehovah's witness or Patient refused 2021 latter-day services? Do [...] or the highest technical, or vocational p [facility] degree you have received? 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 [facility] guidelines recommend that this appointment be [...] Radiology LuisMatthew abdul 2 Tyrell Rodriguez M.D. [address] [place] [phone] Appointment Gastroenterology demian Silver 2 Hepatology Yue Burciaga M.D. [address] [place] [phone] Virtual Visit Transplant Matthew Jerome 2 YTyrell M.D. [address] [place] [address] [phone] Office Visit Gastroenterology and Matthew Jerome 2 Hepatology Tyrell Rodriguez M.D. [address] [place] [address] [phone] Appointment Radiology Matthew Jerome 2 YTyrell M.D. [address] [place] [phone] Hospital Gastroenterology and Matthew Jerome Cirrhos is Alcoholic (HCC) 2 Encounter Hepatology Tyrell Rodriguez M.D. [address] [place] [address] [phone] Anesthesia Event Gastroenterology demian Shine, 2 Hepatology Ervin Burgos M.D. [address] [place] [phone] Surgery Gastroenterology and Mousa, Matthew ESOPHAG OGASTRODUODENOSCOPY 2 Hepatology Tyrell Rodriguez M.D. 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 Hypertension Portal (HCC) documented as of this encounter Visit Diagnoses Not on filedocumented in this encounter Additional Health Concerns Infection Onset Date Last Indicated Resolved Time COVID19 Pending 11/12/2021 11/12/2021 11/12/2021 4:20 AM CDT [id number]: Patients who are NOT sev erely immunocompromised: Asymptomatic - At least 10 days have passed since the date of the first positive PCR test 11/12/2021 11/12/2021 11/13/2021 3:19 PM CDT and Patient has remained asymptomatic throughout their infection Assessment Noted Time PHQ-9 Depression Total Score: 10 10/06/2021 5:00 PM CD T documented as of this encounter Care Teams Art Handler Relationship Specialty Start Date End Date Elsewhere, Pcp PCP - General Family Medicine 03/10/20 11/30/21 [facility] [place] lab 08/25/21 Ervin Schroeder MD Referring Provider Family Medicine 03/24/[address] [place] [phone] documented as of this encounter
--- OUTSIDE RECORDS SUMMARY | 2022-02-16 12:24 | XMS_ITS | Encounter Summary ---
:1990 Author Organization [facility] Address [address] [place] [address] Care Team Providers Name Role Phone Elsewhere, Pcp Primary Care Provider Unavailable Reason for Visit Reason Comments Vitamin K Encounter Details Date Type Department Care Team Description 10/31/2021 Clinical Communication [facility] PRE/POS T Alina Carranza, Vitamin K [address] [place] [address] [phone] Social History Tobacco Use Types Packs/Day Years [...] at Date Recorded Female 04/12/2021 7:[address] documented as of this encounter Miscellaneous Notes Telephone Encounter - Faviola Hernandez R.N. - 10/31/2021 4:22 PM CDT This specification writer contacted [facility] in [facility], spoke to Perri. Prescription for Vitamin K was received and has not been entered. Perri stated prescription will be ready and patient will be notified by pharmacy via notification system. This specification writer sent patient a message via portal. [...] Appointment Radiology Matthew Jerome 2 YVikBGraeme, Lilian [address] [place] [phone] Appointment Gastroenterology demian Silver, 2 Hepatology Yue Burciaga M.D. [address] [place] [phone] Virtual Visit Transplant Matthew Jerome 2 Joshua RodriguezBSumaBLilian Bedolla [address] [place] [phone] Office Visit Gastroenterology and Matthew Jerome 2 Hepatology Vik RodriguezBLilian Bedolla [address] [place] [phone] Appointment Radiology Matthew Jerome 2 YJoshuaB.BLilian Bedolla [address] [place] [phone] Hospital Gastroenterology and Matthew Jerome Cirrhos is Alcoholic (HCC) 2 Encounter Hepatology Joshua oRdriguezB.BLilian Bedolla [address] [place] [phone] Anesthesia Event Gastroenterology and Rl, 2 Hepatology Ervin Burgos M.D. [address] [place] [address] [phone] Surgery Gastroenterology and Mousa, Matthew ESOPHAG OGASTRODUODENOSCOPY 2 Hepatology Tyrell Rodriguez, Lilian [address] [place] [phone] Scheduled Procedures Name Priority Associated Diagnoses Date/Time ESOPHAGOGASTRODUODENOSCOPY Cirrhosis Alc oholic (HCC) 03/20/2022 8:[address] Hypertension Portal (HCC) documented as of this encounter Visit Diagnoses Not on filedocumented in this encounter Additional Health Concerns Assessment Noted Time PHQ-9 Depression Total Score: 10 10/06/2021 5:00 PM CD T documented as of this encounter Care Teams Electric Meter Inspector Relationship Specialty Start Date End Date Elsewhere, Pcp PCP - General Family Medicine 03/10/20 11/30/21 [facility] [place] lab 08/25/21 Ervin Schroeder MD Referring Provider Family Medicine 03/24/[address] [place] [address] documented as of this encounter
--- OUTSIDE RECORDS SUMMARY | 2022-02-16 12:24 | XMS_ITS | Encounter Summary ---
:1990 Author Organization [facility] Address [address] [place] [address] Care Team Providers Name Role Phone Elsewhere, Pcp Primary Care Provider Unavailable Reason for Visit Auth/Cert Specialty Diagnoses / Procedures Referred By Contact Refer red To Contact Diagnoses Hepatic Encephalopathy Without Coma (HCC) hepatic encephalopathy Procedures DIR Referral ID Status Reason Start Date Expiration Date Visits Requ ested Visits Authorized [id number] 1 1 Encounter Details Date Type Department Care Team Description 11/09/2021 - [facility] Ekta Rubi M.D., M.S. [address] [place] [phone] Hepatic 11/11/2021 Encounter Hospital, [facility] Jody Aguilar M.B., B.Chir. [address] [place] [phone] Encephalopathy [facility], Without Coma ( HCC) [place] (Primary Dx) Building, Sixth Floor [address] [place] [address] [phone] Social History Tobacco Use Types Packs/Day Years [...] you attend yarsani or Patient refused 2021 baptism services? 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 Discharge Provider: Jody Aguilar M.B. Primary Care Provider at Discharge: Primary Care Providers: Elsewhere, Pcp (General) No address on file Primary Care Provider Phone Number: None Primary Care Provider Fax Number: None Primary Team: [facility] Gastroenterology A Admission Date: 11/09/2021 Discharge Date: [...] and Hepatology 11/19/2021 4:00 PM LAB 01 [facility] Laboratory Medicine 11/26/2021 4:00 PM SHADI COUNSELOR 01 MERLYN 18 Nicotine Dependence For appointment details refer to your Patient Appointment Guide. TEST RESULTS PENDING AT DISCHARGE Pending Labs Order Current Status [facility] Result Collected (11/11/21 0952) Bacterial Culture, [...] AM CDT You were discharged from the [facility] Gastroenterology A Service. Please identify this service name if you call with questions after hospitalization. AttachmentsThe following attachments cannot be sent through Care Everywhere.Zinc Sulfate (By mouth) ([place])documented in this encounter Medications at Time of [...] COVID therapies indicated. Evon Rodriguez Pharm.D., R.Ph. [phone] documented in this encounter H&P Notes Jody [...] [facility] Gastroenterology A Admission Note REFERRING FACILITY [facility] SUBJECTIVE CHIEF COMPLAINT Altered mental status, jaundice [...] / PLAN Ms. Carias is hospitalized on [facility] Gastroenterology A for evaluation and management of [...] seen and discussed with [facility] G[facility]enterology A Medical Receptionist Biller, Jo Ann Abbasi M.D.. Please see the supervisory note for further details. Please contact the primary service pager - [phone] with any questions. documented in this encounter [...] LuisNew abdular 2 Tyrell Rodriguez M.D. [address] [place] [address] [phone] Appointment Gastroenterology demian Silver, 2 Hepatology Yue Burciaga M.D. [address] [place] [phone] Virtual Visit Transplant LuisMatthew abdul 2 YTyrell M.D. [address] [place] [address] [phone] Office Visit Gastroenterology and LuisMatthew abdul 2 Hepatology Tyrell Rodriguez M.D. [address] [place] [address] [phone] Appointment Radiology LuisMatthew abdul 2 YTyrell M.D. [address] [place] [phone] Hospital Gastroenterology and Matthew Jerome Cirrhos is Alcoholic (HCC) 2 Encounter Hepatology Tyrell Rodriguez M.D. [address] [place] [address] [phone] Anesthesia Event Gastroenterology and Rl, 2 Hepatology Ervin Burgos M.D. [address] [place] [address] [phone] Surgery Gastroenterology and Mousa, Matthew ESOPHAG OGASTRODUODENOSCOPY 2 Hepatology Tyrell Rodriguez M.D. [address] [place] [phone] Pending Results Name Type Priority Associated Diagnoses Date/Ti me Prepare Red Blood Blood Bank Routine 11/10/2021 4:37 AM CDT Cells, 1 Units Prepare Red Blood Blood Bank Routine 11/10/2021 4:37 AM CDT Cells, 1 Units Scheduled Procedures Name Priority Associated Diagnoses Date/Time ESOPHAGOGASTRODUODENOSCOPY Cirrhosis Alc oholic (HCC) 03/20/2022 8:45 AM FRAME CLEANER Hypertension Portal (HCC) documented as of [...] Results SPSMA Result (11/11/2021 9:52 AM CDT) [facility] Method Time Signature Neutrophilic Segs 71 50 [...] 11/12/19 22 Venous) CDT 10:47 AM CDT Tanamy Parker M.D. LAB BLOOD ADD-ON Performing Organization Address [facility] Phon e Number [facility] - 200 [place], [place] [address] [place] [address] Laboratories-[address] (ABNORMAL) Prothrombin Time (PT) (11/11/2021 4:31 [...] M.S. LAB BLOOD ADD-ON Performing Organization Address City/[facility] Phon e Number [facility] - [address] [place] [address] 05 [facility] [place] [address] Laboratories-[address] (ABNORMAL) Comprehensive Metabolic Panel (11/11/2021 4:31 [...] 11/11/2021 DTL Black/ mL/min/BSA 6:27 AM CDT Angolan Comment: ----ADDITIONAL INFORMATION---- Estimated GFR calculated using [...] M.S. LAB BLOOD ADD-ON Performing Organization Address [facility] Phon e Number [facility] - [address] [place], [place] [address] [facility] [address] [facility] 200 [facility] (ABNORMAL) CBC without Differential (11/11/2021 4:31 AM CDT) [facility] Method Time Signature Hemoglobin 7.4 (L) 11.6 [...] MSumaS. LAB BLOOD ADD-ON Performing Organization Address City/State/[facility] Phon e Number [facility] - [address] [place], [place] [address] [facility] [address] [facility] 200 [facility] Transfuse Red Blood Cells : (11/10/2021 [...] process. ?? All other fluids refer to [email or web address] for further interpretive information. This t est has been modified from the photo tube assembler's instruc tions. Its performance characteristics were determi foreign by [facility] in a manner consistent with CLIA require [...] AND STOOLS O JOSE Performing Organization Address City/[facility] Code Phon e Number [facility] - [id number] [place] [address] Gram Stain (11/10/2021 2:32 PM CDT) [facility] Method Time Signature Gram Stain No organisms seen. 11/10/2021 DTL White blood cells present. 8:25 PM CDT Specimen Anatomical Collection Method Collection Time Receive d Time (Source) Location / / Volume Laterality Fluid 11/10/2021 2:32 PM 2 5:21 (Peritoneal CDT PM CDT Fluid) Comment: Specimen Source Site: Fluid Narrative [facility] - 11/10/2021 8:25 PM CDT Bacterial Culture: Received Bactec aerob ic and Bactec anaerobic bottles Gerard Andino M.D., M.S. LAB MICROBIOLOGY - GENERAL O JOSE Performing Organization Address City/[facility]/ZIP Code Phon e Number [facility] - [address] [place], [place] [address] [place], [place] [address] [place] [address] Protein, Total, Body Fluid (11/10/2021 2:32 PM [...] ical findings. All other fluids refer to [email or web address] for further inter pretive information. This test has been modified from the photo tube assembler's instructions. Its perform ance characteristics were determined by [facility] in a manner consistent with CLIA require [...] Organization Address City/State/ZIP Code Phon e Number [facility] - [address] [place] [address] [facility] [place] [address] [facility] 200 [facility] Cell Count and Differential, Body Fluid [...] performance characteri stics were determined by [facility] in a manner co nsistent with CLIA [...] Organization Address City/State/ZIP Code Phon e Number [facility] - [address] [place], [place] [address] [place] [address] [facility] [address] Bacterial Culture, Aerobic + Susc (11/10/2021 2:32 PM CDT) [facility] Method Time Signature Bacterial No growth 11/15/2021 DTL Culture, after 5 9:17 AM CDT Aerobic + Susc days of incubation. Specimen Anatomical Collection Method Collection Time Receive d Time (Source) Location / / Volume Laterality Fluid 11/10/2021 2:32 PM 2 5:21 (Peritoneal CDT PM CDT Fluid) Comment: Specimen Source Site: Fluid Narrative [facility] - [facility] - 11/15/2021 9:17 AM CDT Bacterial Culture: Received Bactec aerob ic and Bactec anaerobic bottles Gerard Andino M.D., M.S. LAB MICROBIOLOGY - GENERAL O RDERABLES Performing Organization Address [facility] Phon e Number [facility] - [address] [place] [address] 05 [facility] [address] [facility] 200 [facility] Transfuse Red Blood Cells : (11/10/2021 12:21 PM CDT) Dina Campa M.D. BLOOD TRANSFUSION ORDERABLES Transfuse Red Blood Cells : , 1 Units (11/10/2021 12:21 PM CDT) Dina Campa M.D. BLOOD TRANSFUSION ORDERABLES Direct Antiglobulin Test (Poly) (11/10/2021 12:02 PM CDT) Patholo gist Method Time Signature Direct Negative Negative 11/10/2021 [facility] Antiglobulin 12:44 PM CDT Test, Polyspecific Specimen Anatomical Collection Method Collection Time Receive d Time (Source) Location / / Volume Laterality Blood (Blood, 11/10/2021 12:02 11/10/2021 Venous) PM CDT 12:16 PM CDT Dina Campa M.D. LAB BLOOD BANK TEST ORDERABL ES Performing Organization Address [facility] Phon e Number [facility] - [address] [place] [address] [facility] [place] [address] [facility] 200 [facility] (ABNORMAL) SPSMA Result (11/10/2021 12:02 PM CDT) Analysis Performed At Patho logist Time Signature Neutrophilic Segs 80 (H) 50 - 75 % 11/10/2021 [facility] 2:35 PM CDT Lymphocytes 16 (L) 18 - 42 % 11/10/2021 [facility] 2:35 PM CDT Monocytes 1 (L) 2 - 11 % 11/10/2021 [facility] 2:35 PM CDT Eosinophils 1 1 - 3 % 11/10/2021 [facility] 2:35 PM CDT Basophils 2 0 - 2 % 11/10/2021 [facility] 2:35 PM CDT Manual Absolute 5.20 1.56 - 11/10/2021 [facility] Neutrophil Count 6.45 2:35 PM CDT x10(9)/L [...] Reviewed by: Ruth 11/10/2021 2:35 PM CDT [facility] Specimen Anatomical Collection Method Collection Time Receive d Time (Source) Location / / Volume Laterality Blood (Blood, 11/10/2021 12:02 11/10/2021 Venous) PM CDT 12:29 PM CDT Dina Campa M.D. LAB BLOOD ADD-ON Performing Organization Address City/State/ZIP Code Phon e Number [facility] - [address] [place], [place] [address] [place] [address] [facility] [address] (ABNORMAL) Haptoglobin (11/10/2021 12:02 PM CDT) [facility] Haptoglobin, S <14 (L) 30 - 200 11/10/2021 [facility] mg/dL 5:27 PM CDT Specimen Anatomical Collection Method Collection Time Receive d Time (Source) Location / / Volume Laterality Blood (Blood, 11/10/2021 12:02 11/10/2021 3:46 Venous) PM CDT PM CDT Dina Campa M.D. LAB BLOOD ADD-ON Performing Organization Address City/State/ZIP Code Phon e Number [facility] [address] [place], [place] [address] [facility] [place] [address] Laboratory Medicine and Pathology [address] TA CESAR (Lactate Dehydrogenase) (11/10/2021 12:02 PM CDT) [facility] LD 208 122 - 222 11/10/2021 DTL U/L 1:10 PM CDT Specimen Anatomical Collection Method Collection Time Receive d Time (Source) Location / / Volume Laterality Blood (Blood, 11/10/2021 12:02 11/10/2021 Venous) PM CDT 12:48 PM CDT Dina Campa M.D. LAB BLOOD NON ADD-ON Performing Organization Address City/State/ZIP Code Phon e Number [facility] - [address] (ABNORMAL) Reticulocytes (11/10/2021 12:02 PM CDT) [...] ADD-ON Performing Organization Address City/[facility] Code Phon e Number [facility] - [address] (ABNORMAL) Hemoglobin (11/10/2021 12:02 PM CDT) P athologist Signature Hemoglobin 6.9 (L) 11.6 - 15.0 11/10/2021 DTL g/dL 2:23 PM CDT Specimen Anatomical Collection Method Collection Time Receive d Time (Source) Location / / Volume Laterality Blood (Blood, 11/10/2021 12:02 11/10/2021 Venous) PM CDT 12:29 PM CDT Dina Campa M.D. LAB BLOOD ADD-ON Performing Organization Address City/State/ZIP Code Phon e Number [facility] - [address] [address] [facility] [address] [facility] (ABNORMAL) Prothrombin Time (PT) (11/10/2021 4:38 [...] Organization Address City/State/ZIP Code Phon e Number [facility] - [address] Phosphorus Inorganic (11/10/2021 4:38 AM CDT) [...] City/State/ZIP Code Phon e Number [facility] [address] Magnesium (11/10/2021 4:38 AM CDT) P athologist Signature Magnesium, S 1.7 1.7 - 2.3 11/10/2021 DTL mg/dL 6:10 AM CDT Specimen Anatomical Collection Method Collection Time Receive d Time (Source) Location / / Volume Laterality Blood (Blood, 11/10/2021 4:38 AM 11/11/19 5:51 Venous) CDT AM CDT Dina Campa M.D. LAB BLOOD ADD-ON Performing Organization Address City/State/ZIP Code Phon e Number [facility] - 200 [place], [place] [address] [facility] [address] [facility] 200 [facility] (ABNORMAL) Basic Metabolic Panel (11/10/2021 4:38 [...] 11/10/2021 DTL Black/ mL/min/BSA 7:08 AM CDT Angolan Comment: ----ADDITIONAL INFORMATION---- Estimated GFR calculated using [...] Organization Address City/State/ZIP Code Phon e Number [facility] - 200 [place], [place] [address] [facility] [place] [address] [facility] [address] [facility] (ABNORMAL) CBC with Differential, Blood (11/10/2021 [...] ADD-ON Performing Organization Address City/[facility]/ZIP Code Phon e Number [facility] - [address] [place], [place] [address] [facility] [place] [address] Laboratories-[address] Type and Screen (with reflex Antibody [...] BANK TEST ORDERABL ES Performing Organization Address City/[facility]/ZIP Code Phon e Number [facility] - [address] [place], [place] [address] [facility] [place] [address] Laboratories-[address] ECG 12 Lead (11/09/2021 10:47 PM CDT) P athologist Signature Ventricular Rate 88 BPM MUSE ECG/Min AR Interval 158 ms MUSE QRSD Interval 84 ms MUSE QT Interval 344 ms MUSE QTC Interval 417 ms MUSE P [place] 64 degrees MUSE R [place] 46 degrees MUSE T Wave [place] 37 degrees MUSE Specimen Anatomical Collection Method [...] LI-RADS is supported and endorsed by the [place] [employer]. More information can be found on the [employer] link: https://www.acr.org/Clinical-Resources/Vzondhvtk-cwf-Qjsw-Systems/LI-RADS/Ultras ohkf-KI-PDAH-v2017 Procedure Note Rex Jenkins M.D. - 11/10/2021 [...] LI-RADS is supported and endorsed by the [place] [employer]. More information can be found on the [employer] link: https://www.acr.org/Clinical-Resources/Rdnsquzvw-jhi-Zmin-Systems/LI-RADS/Ultras lkdo-TA-VAEB-v2017 IMPRESSION: 1. Cirrhotic morphology of the liver wit hout suspicious focal hepatic lesions. LI-RADS 1B. 2. Hepatic arterial and venous vasculatu re is patent with antegrade flow. Elevated main hepatic artery velocities. 3. Moderate volume ascites. Dina Campa M.D. IMG US PROCEDURES Bacteria / Ines Culture, Blood #2 (11/09/2021 8:25 PM CDT) [facility] Method Time Signature Bacteria/Adriana No growth 11/14/2021 DTL da Culture, after 5 10:02 PM CDT Blood days of incubation. Specimen (Source) Anatomical Collection Method Collection Time Re ceived Time Location / / Volume Laterality Blood (Blood, 11/09/2021 8:25 11/09/2021 9:40 Peripheral Draw) PM CDT PM CDT Comment: Specimen Source Site: Blood Narrative [facility] - 11/14/2021 10:02 PM CDT Received Bactec Peds bottle Dina Campa M.D. LAB MICROBIOLOGY - GENERAL O JOSE Performing Organization Address City/[facility] Phon e Number [facility] - 200 [place], [place] [address] [place] [address] Bacteria / Ines Culture, Blood #1 (11/09/2021 [...] CDT Comment: Specimen Source Site: Blood Narrative [facility] - 11/14/2021 8:02 PM CDT Received Bactec Peds bottle Dina Campa M.D. LAB MICROBIOLOGY - GENERAL O JOSE Performing Organization Address City/[facility] Phon e Number [facility] - [address] [place], [place] [address] [place], [place] [address] [place] [address] Phosphorus Inorganic (11/09/2021 7:09 PM CDT) P athologist Signature Phosphorus 4.3 2.5 - 4.5 11/09/2021 DTL (Inorganic), S mg/dL 8:15 PM CDT Specimen Anatomical Collection Method Collection Time Receive d Time (Source) Location / / Volume Laterality Blood (Blood, 11/09/2021 7:09 PM 11/10/19 22 7:44 Venous) CDT PM CDT Dina Campa M.D. LAB BLOOD ADD-ON Performing Organization Address City/State/ZIP Code Phon e Number [facility] - [address] [place], [place] [address] [facility] [place] [address] [facility] [address] AFP (Alpha-Fetoprotein), Tumor Marker (11/09/2021 7:09 PM CDT) athologist Signature Alpha-Fetoprote 6.4 ng/mL 11/10/2021 [facility] in, Tumor 3:04 PM CDT Marker, S Comment: ----REFERENCE VALUE---- <8.4 Reference values are for non- subjects only; production of AFP elevates values in women. ----ADDITIONAL INFORMATION---- In this Richie Wellman assay AFP concen trations are <8.4 ng/mL [...] method is an immunoenzymatic assay manufactured by [employer]. and is tested on the [employer] DxI 800. Values obtained with different assay [...] ADD-ON Performing Organization Address City/[facility]/ZIP Code Phon e Number [facility] [address] [place], [place] [address] [facility] [place] [address] Laboratory Medicine and Pathology [address] [...] ADD-ON Performing Organization Address City/[facility] Code Phon e Number [facility] - [address] [place] [address] (ABNORMAL) Lactate, baseline (11/09/2021 7:09 PM CDT) P athologist Signature Lactate, P 2.7 (H) 0.5 - 2.2 11/09/2021 [facility] mmol/L 7:35 PM CDT Specimen Anatomical Collection Method Collection Time Receive d Time (Source) Location / / Volume Laterality Blood (Blood, 11/09/2021 7:09 PM 11/10/19 22 7:20 Venous) CDT PM CDT Dina Campa M.D. LAB BLOOD NON ADD-ON Performing Organization Address City/[facility]/ZIP [facility] Phon e Number [facility] - [address] [facility] [place] [address] (ABNORMAL) Hepatic Function Panel (11/09/2021 [...] Organization Address City/State/ZIP Code Phon e Number [facility] - [address] [place] [address] [facility] [place] [address] [facility] 200 [facility] (ABNORMAL) Basic Metabolic Panel (11/09/2021 7:09 [...] 11/09/2021 DTL Black/ mL/min/BSA 9:49 PM CDT [place] Comment: ----ADDITIONAL INFORMATION---- Estimated GFR calculated using [...] ADD-ON Performing Organization Address City/[facility]/ZIP Code Phon e Number [facility] - [address] [address] Laboratories-[address] (ABNORMAL) CRP (C-Reactive Protein) (11/09/2021 7:09 [...] ADD-ON Performing Organization Address City/[facility]/ZIP Code Phon e Number [facility] - [address] [place] [address] [facility] [address] (ABNORMAL) CBC with Differential, Blood (11/09/2021 7:09 PM CDT) [facility] Method Time Signature Hemoglobin 8.0 (L) 11.6 [...] Organization Address City/State/ZIP Code Phon e Number [facility] - [address] [place], [place] [address] [facility] [place] [address] [facility] [address] documented in [...] Administer the 25% solution at 100 mL/hr yhbdaakauraqh-kvhahxpxyx-yekjxeps in Lipoderm Given 11/11/2021 9 :38 AM [...] Administer the 25% solution at 100 mL/hr hqocpljmifade-xphogejrtw-ggkxsxrv in Lipoderm 2%-5%-5% cream 1 g 1337 (Given - Provider: Neptali Calvillo R.N.)2138 (Given - Provider: Karen Palacio R.N.) 0938 (Given - Provider: Andrew BlackmanNSuma) 1 g, topical, 2 times daily, First [...] thickened liquids. prochlorperazine injection 5 mg (COMPAZINE) 0284 (Given - Provider: Karen Palacio R.N.) 5 [...] documented as of this encounter Care Teams Pigs Feet Finisher Relationship Specialty Start Date End Date Elsewhere, Pcp PCP - General Family Medicine 03/10/20 11/30/21 [facility] [place] [facility] 08/25/21 Ervin Schroeder MD Referring Provider Family Medicine 03/24/[address] [place] [address] documented as of this encounter
--- OUTSIDE RECORDS SUMMARY | 2022-02-16 12:24 | XMS_ITS | Encounter Summary ---
:1990 Author Organization [facility] Address [address] [place] [address] Care Team Providers Name Role Phone Elsewhere, Pcp Primary Care Provider Unavailable Reason for Visit Transplant (Routine) - Closed Specialty Diagnoses / Procedures Referred By Contact Refer red To Contact Transplant Surgery / Diagnoses Cirrhosis Alcoholic (HCC) Abnormal Liver Function Test Ascites Pretransplant Recipient Evaluation Exam [facility] M.P[facility] [address] [place] [address] Referral ID Status Reason Start Date Expiration Date Visits Requ ested Visits Authorized [id number] Closed 08/25/2021 08/25/2022 1 1 Encounter Details Date Type Department Care Team Description 10/22/2021 Telemedicine Warren Carter M.D., M.P.H. [address] [place] [address] Moderate Or Severe Use Disorder (Depende nce) Alcohol Remission (HCC) (Primary Dx); Center Brigid Lizarraga, M.D. 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 Ascites; [place] [address] 0001 Abnormal Liver Function Test ; [phone] Pretransplant R ecipient Evaluation Exam; Preoperative Ex [...] you attend zoroastrianism or Patient refused 2021 orthodoxy services? 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 - 10/22/2021 3:00 PM CDT DEMOGRAPHICS Catia Carias [address] [place] [phone] 31 y.o. REFERRAL SOURCE: Warren Hernández M.D., M.P.H. Consult conducted via real-time audio/video technology by Brigid Sales M.D. in [facility] to the patient in Patient's Home [...] of this evaluation and reviewed the [facility] record. She has been seen by my [...] and Family: Twice a week ??? Attends [facility] Services: Never ??? 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 Children: No Advent/spiritual: None reported. Support network: She is not [...] Radiology Matthew Jerome 2 Tyrell Rodriguez M.D. [address] [place] [phone] Appointment Gastroenterology demian Silver, 2 Hepatology Yue Burciaga M.D. [address] [place] [phone] Virtual Visit Transplant Matthew Jerome 2 Tyrell Rodriguez M.D. [address] [place] [phone] Office Visit Gastroenterology and Matthew Jerome 2 Hepatology Tyrell Rodriguez M.D. [address] [place] [phone] Appointment Radiology Matthew Jerome 2 Tyrell Rodriguez M.D. [address] [place] [phone] Hospital Gastroenterology and Matthew Jerome Cirrhos is Alcoholic (HCC) 2 Encounter Hepatology Tyrell Rodriguez, Lilian [address] [place] [phone] Anesthesia Event Gastroenterology and Rl, 2 Hepatology Ervin Burgos M.D. [address] [place] [phone] Surgery Gastroenterology and Mousa, Matthew ESOPHAG OGASTRODUODENOSCOPY 2 Hepatology Tyrell Rodriguez, Lilian [address] [place] [phone] Scheduled Procedures Name Priority Associated Diagnoses Date/Time ESOPHAGOGASTRODUODENOSCOPY Cirrhosis Alc oholic (HCC) 03/20/2022 8:45 AM AIR GRINDER Hypertension Portal (HCC) documented as of [...] documented as of this encounter Care Teams Pegger Relationship Specialty Start Date End Date Elsewhere, Pcp PCP - General Family Medicine 03/10/20 11/30/21 [facility] [place] [facility] 08/25/21 Ervin Schroeder MD Referring Provider Family Medicine 03/24/[address] [place] [address] documented as of this encounter
--- OUTSIDE RECORDS SUMMARY | 2022-02-16 12:25 | XMS_ITS | Encounter Summary ---
:1990 Author Organization [facility] Address [address] [place] [address] Care Team Providers Name Role Phone Elsewhere, Pcp Primary Care Provider Unavailable Reason for Referral Transplant (Routine) - Closed Specialty Diagnoses / Procedures Referred By Contact Refer red To Contact Transplant Surgery / Adeline Frazier [facility] Transplant Lilian Gannon, Ph.D. [address] [place] [phone] Referral ID Status Reason Start Date Expiration Date Visits Requ ested Visits Authorized [id number] Closed 10/10/2021 10/10/2022 1 1 Reason for Visit Transplant (Routine) - Closed Specialty Diagnoses / Procedures Referred By Contact Refer red To Contact Transplant Surgery / Diagnoses Cirrhosis Alcoholic (HCC) Abnormal Liver Function Test Ascites Pretransplant Recipient Evaluation Exam Preoperative Exam Warren Hernández [facility] Transplant Lilian, M.P.H. [address] [place] [address] Referral ID Status Reason Start Date Expiration Date Visits Requ ested Visits Authorized [id number] Closed 08/25/2021 08/25/2022 1 1 Encounter Details Date Type Department Care Team Description 10/10/2021 Telemedicine Warren Carter M.D., M.P.H. [address] [place], [place] [phone] Alcohol Moderate Or Severe Use Disorder (Dependence) Uncomplicated (HCC) (Primary Dx); [facility] Zenobia Hollingsworth M.A., L.A.D.C. Cannabis Use Unspecified Uncomplicated; Transplantation and Long Ter m Use Of Opiate Analgesic; Clinical Regeneration in [place] otine Dependence Cigarettes; Mood Disorder (HCC); [address] [place] [address] Anxiety Disorder Unspecified ; [place] [address] Eating Disorder; [phone] Hepatic Encepha lopathy Without Coma (HCC); Chronic [...] you attend religion or Patient refused 2021 hoahaoism services? 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 - 10/10/2021 8:00 AM CDT Service Date: 10/10/21 DEMOGRAPHICS Patient: Catia Carias Date of : 1990 Age: 31 y.o. Gender: female Address: [address] [place] [phone] Referral source: Liver Transplant Team. Consult conducted via real-time audio/video technology by Dr. Marva Frazier and Zenobia Hollingsworth MA, [facility] in [facility] to the patient in patient's home. CIRCUMSTANCES OF SERVICE INITIATION / REASON FOR REFERRAL Pre-Liver transplant addiction psychiatry evaluation. HISTORY OF PRESENT ILLNESS Ms. Catia Bourgeois is??a very pleasant 31 y.o. partnered female under consideration for liver transplantation. The patient has a history of anxiety, depression, eating disorder and chronic pain. She was previously seen by Radhames Neumann, Ph.D., L.P. in [facility] (Pain Kati abilitation) on 10/06/2021 [...] in the past 30 days? No. OTHER [id number]: No. Other: No. Compulsive behaviors: No history [...] visit. SOCIAL HISTORY provided by Joel Tan [facility], DURABILITY ENGINEER Pager: [phone] note dated 09/29/2021. Today, the information below was reviewed, verified and updated with the patient. Family of Origin: Family of origin: The patient was raised in [place], [place]. Her parents when she was 20 years old. Her mother remarried. The patient calls her step- father, Siva, her bonus father. The patient's mother and step-father live in [place], [place]. The patient's father did not remarry. He lives in [place], [place], which is 10-12 minutes from the [...] Degree. The patient has her associates of [employer] degree in photography. Employment: Disabled: The patient was previously worked at [employer] in [place] until January 2021 when she became ill. History: No background. Spirituality / Buddhism / Culture: Describe spiritual beliefs: Patient does not identify with any hoahaoism or spiritual beliefs. Cultural background: White [1] [...] management per Radhames Neumann, Ph.D., L.P. in [facility] (Pain Rehabilitation), 10/06/2021: - virtual [...] in the patient's local community and at [facility]. - A handout about accessing online recovery meetings such as AA, NA, [employer], etc. - A set of forms to [...] of liver decompensation - inpatient hospitalization at [facility] 03/2021; MELD-Na score: 32 at 09/30/2021 4. [...] discussing case with Zenobia Hollingsworth MA, [facility], documenting results of evaluation and treatment recommendations as well as counseling and coordination of care. Collateral information: Collateral information not needed at this time. Electronically signed by: Zenobia Hollingsworth M.A., Nathalie 10/10/21 documented in this encounter Plan of Treatment Upcoming Encounters Date Type Specialty Care Team Description Telemedicine Transplant 2 Appointment Radiology LuisMatthew abdul 2 Tyrell Rodriguez M.D. [address] [place] [phone] Appointment Gastroenterology and Adrianne, 2 Hepatology Yue Burciaga M.D. [address] [place] [phone] Virtual Visit Transplant LuisMatthew abdul 2 Tyrell Rodriguez M.D. [address] [place] [phone] Office Visit Gastroenterology and LuisMatthew abdul 2 Hepatology Tyrell Rodriguez M.D. [address] [place] [phone] Appointment Radiology LuisNew abdular 2 Tyrell Rodriguez M.D. [address] [place] [phone] Hospital Gastroenterology and Matthew Jerome Cirrhos is Alcoholic (HCC) 2 Encounter Hepatology Tyrell Rodriguez M.D. [address] [place] [phone] Anesthesia Event Gastroenterology and Rl, 2 Hepatology Ervin Burgos M.D. [address] [place] [phone] Surgery Gastroenterology and Mousa, Matthew ESOPHAG OGASTRODUODENOSCOPY 2 Hepatology Tyrell Rodriguez M.D. [address] [place] [phone] Scheduled Procedures Name Priority Associated Diagnoses Date/Time ESOPHAGOGASTRODUODENOSCOPY Cirrhosis Alc oholic (HCC) 03/20/2022 8:45 AM DISPATCH SUPERVISOR Hypertension Portal (HCC) Scheduled Referrals Name Type Priority Associated Order Schedule Diagnoses Transplant Liver Outpatient Referral Routine Expe cted: office visit 01/26/2022 (clinic) (Approximate), Expires: 01/10/2023 documented as of this encounter Results Ethyl Glucuronide Confirmation, Random, Urine (02/12/2022 10:29 AM CDT) [facility] Method Time Signature Ethyl Glucuronide Negative Cutoff: 02/15/2022 [facility] Confirmation, U 250 ng/mL 7:16 AM CDT Ethyl Sulfate Negative Cutoff: 02/15/2022 [facility] 100 ng/mL 7:16 AM CDT Ethyl Gluc/Sulfate Negative. 02/15/2022 [facility] Interpretation 7:16 AM CDT Comment: ----ADDITIONAL INFORMATION---- [...] ORDERABLES Performing Organization Address [facility] Phon e Number [facility] [address] [place], [place] [address] [place] [address] [place] [phone] [place] (ABNORMAL) Drug Abuse Survey with Confirmation, Urine (12/15/2021 5:58 PM CDT) [facility] Method Time Signature Alcohol Negative [...] ORDERABLES Performing Organization Address [facility] Phon e Number [facility] [address] [place], [place] [address] [facility] [place] [address] Laboratory Medicine and Pathology [address] [place] [address] Dr. [place] Ethyl Glucuronide Confirmation, Random, Urine [...] Phon e Number [facility] [address] [place] [address] 05 SUPPORT [facility] [place] [address] Laboratory Medicine and Pathology [address] [place] [address] Dr. [place] Phosphatidylethanol (Peth), whole blood- Sent Out Lab (12/15/2021 5:39 PM CDT) Component Value Ref Range Test Analysis Performed Pathologis t Method Time At Signature Phosphatidylethanol NEGATIVE NEGATIVE 12/26/2021 MTI (PEth) ng/mL 1:01 PM CDT Comment: Analyzed compound: PEth 16:0/18:1. ? 0-urhsxeldo-5-nvdrot-fy-hhlncay-3 -phosphoethanol. ? Analysis performed by Liquid Chromatogra [...] and its performa nce characteristics determined by [employer]. It has not been c leared or approved by the Food and Drug Administration. Specimen Anatomical Collection Method Collection Time Receive d Time (Source) Location / / Volume Laterality Blood (Blood, 12/15/2021 5:39 PM 12/17/19 8:26 Venous) CDT AM CDT Adeline Frazier M.D., Ph.D. LAB BLOOD NON ADD-ON Performing Organization Address City/State/ZIP Code Phon e Number [employer]. [address] [place] [address] 2 [employer], [place]. [place], [place] [phone] [place] [address] documented in this encounter Visit Diagnoses Diagnosis [...] documented as of this encounter Care Teams Psychometrician Relationship Specialty Start Date End Date Elsewhere, Pcp PCP - General Family Medicine 03/10/20 11/30/21 [facility] [place] [facility] 08/25/21 Ervin Schroeder MD Referring Provider Family Medicine 03/24/[address] [place] [address] documented as of this encounter
--- OUTSIDE RECORDS SUMMARY | 2022-02-16 12:25 | XMS_ITS | Encounter Summary ---
:1990 Author Organization [facility] Address [address] [place] [address] Care Team Providers Name Role Phone Elsewhere, Pcp Primary Care Provider Unavailable Encounter Details Date Type Department Care Team Description 10/08/2021 Clinical Communication Department of [facility] in [place], [place] L.P.N. 10[address] [facility] [address] [place] [phone] [employer], [place] [phone] Social History Tobacco Use Types Packs/Day [...] you attend scientologist or Patient refused 2021 orthodoxy services? 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 [address] [place] [phone] Appointment Gastroenterology and Adrianne, 2 Hepatology Yue Burciaga M.D. [address] [place] [phone] Virtual Visit Transplant LuisMatthew abdul 2 Vik RodriguezBLilian Bedolla [address] [place] [phone] Office Visit Gastroenterology and Matthew Jerome 2 Hepatology Joshua RodriguezBSumaBLilian Bedolla [address] [place] [phone] Appointment Radiology Matthew Jerome 2 Joshua RodriguezB.BLilian Bedolla [address] [place] [phone] Hospital Gastroenterology and Matthew Jerome Cirrhos is Alcoholic (HCC) 2 Encounter Hepatology Joshua RodriguezB.BLilian Bedolla [address] [place] [phone] Anesthesia Event Gastroenterology and Rl, 2 Hepatology Ervin Burgos M.D. [address] [place] [phone] Surgery Gastroenterology and Matthew Jerome ESOPHAG OGASTRODUODENOSCOPY 2 Hepatology Joshua RodriguezB.B.Lilian [place] [address] [place] [phone] Scheduled Procedures Name Priority Associated Diagnoses Date/Time ESOPHAGOGASTRODUODENOSCOPY Cirrhosis Alc oholic (HCC) 03/20/2022 8:45 AM OFFSET PLATEMAKER Hypertension Portal (HCC) documented as of this encounter Visit Diagnoses Not on filedocumented in this encounter Additional Health Concerns Assessment Noted Time PHQ-9 Depression Total Score: 10 10/06/2021 5:00 PM CD T documented as of this encounter Care Teams Prosthetic Aide Relationship Specialty Start Date End Date Elsewhere, Pcp PCP - General Family Medicine 03/10/20 11/30/21 [facility] 08/25/21 Ervin Schroeder MD Referring Provider Family Medicine 03/24/[address] [place] [address] documented as of this encounter
--- OUTSIDE RECORDS SUMMARY | 2022-02-16 12:25 | XMS_ITS | Encounter Summary ---
:1990 Author Organization [facility] Address [address] [place] [address] Care Team Providers Name Role Phone Elsewhere, Pcp Primary Care Provider Unavailable Reason for Visit Reason Comments Follow up on caregiver plan Encounter Details Date Type Department Care Team Description 10/20/2021 Clinical Ramirez Santana, Follow up on Communication Center for Joel Gannon caregiver plan Transplantation and L.I.C.S.W., Clinical Regeneration M.S.W. in [place] [address] [place], [place] [address] [place] [address] [place], [place] [phone] (Work) [phone] Social History Tobacco Use Types Packs/Day Years [...] 02/10/2022 organizations such as voodoo groups, unions, [employer]Tokyo Otaku [employer] or athletic groups, or school groups? How [...] technical, or vocational p [facility] degree you have received? 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 Radhames Neumann in [facility] (Pain Rehabilitation) - virtual Complex [...] called the patient on 10/17/2021 (cell phone: [phone]) to attempt to follow up on her [...] Radiology LuisNew abdular 2 Tyrell Rodriguez M.D. [address] [place] [phone] Appointment Gastroenterology and Adrianne, 2 Hepatology Yue Burciaga M.D. [address] [place] [phone] Virtual Visit Transplant LuisMatthew abdul 2 YTyrell M.D. [address] [place] [phone] Office Visit Gastroenterology and LuisMatthew abdul 2 Hepatology Tyrell Rodriguez M.D. [address] [place] [phone] Appointment Radiology LuisNew abdular 2 Tyrell Rodriguez M.D. [address] [place] [phone] Hospital Gastroenterology and LuisMatthew abdul Cirrhos is Alcoholic (HCC) 2 Encounter Hepatology Tyrell Rodriguez M.D. [address] [place] [phone] Anesthesia Event Gastroenterology and Rl, 2 Hepatology Ervin Burgos M.D. [address] [place] [phone] Surgery Gastroenterology and Mousa, Matthew ESOPHAG OGASTRODUODENOSCOPY 2 Hepatology Tyrell Rodriguez M.D. [address] [place] [phone] Scheduled Procedures Name Priority Associated Diagnoses Date/Time ESOPHAGOGASTRODUODENOSCOPY Cirrhosis Alc oholic (HCC) 03/20/2022 8:45 AM LEVER TENDER Hypertension Portal (HCC) documented as of this encounter Visit Diagnoses Not on filedocumented in this encounter Additional Health Concerns Assessment Noted Time PHQ-9 Depression Total Score: 10 10/06/2021 5:00 PM CD T documented as of this encounter Care Teams Chief Unit Forester Relationship Specialty Start Date End Date Elsewhere, Pcp PCP - General Family Medicine 03/10/20 11/30/21 [facility] [place] [facility] 08/25/21 Ervin Schroeder MD Referring Provider Family Medicine 03/24/[address] [place] [phone] documented as of this encounter
--- OUTSIDE RECORDS SUMMARY | 2022-02-16 12:25 | XMS_ITS | Encounter Summary ---
:1990 Author Organization [facility] Address [address] [place] [address] Care Team Providers Name Role Phone Elsewhere, Pcp Primary Care Provider Unavailable Reason for Referral Outpatient (Routine) - Closed Specialty Diagnoses / Procedures Referred By Contact Refer red To Contact Diagnoses Cirrhosis Alcoholic (HCC) Abnormal Liver Function Test Ascites Pretransplant Recipient Evaluation Exam Preoperative Exam Warren Hernández M.D., [facility] Procedures Short renal clearance: Iothalamate (Renal Studies Unit) M.P.H. [address] [place] [address] Referral ID Status Reason Start Date Expiration Date Visits Requ ested Visits Authorized [id number] Closed 08/25/2021 08/25/2022 1 1 Reason for Visit Outpatient (Routine) - Closed Specialty Diagnoses / Procedures Referred By Contact Refer red To Contact Diagnoses Cirrhosis Alcoholic (HCC) Abnormal Liver Function Test Ascites Pretransplant Recipient Evaluation Exam Preoperative Exam Warren Hernández M.D., [facility] [facility] Procedures Short renal clearance: Iothalamate (Renal Studies Unit) M.P.H. [address] [place] [address] Referral ID Status Reason Start Date Expiration Date Visits Requ ested Visits Authorized [id number] Closed 08/25/2021 08/25/2022 1 1 Encounter Details Date Type Department Care Team Description 10/03/2021 Hospital Encounter Department of Edgar, Travosi s Alcoholic (HCC); Laboratory Medicine Warren Schaefer M.D., Shamekaor mal Liver Function Test; and Pathology, M.P.H. Ascites; [place] [address] [place] [address] Pretransplant Recipient Evaluation Exam; Building, in [place], [place] Preoperative E xam [address] [phone] [address] [facility] (Work) [place], [place] [phone] (Fax) [phone] Social History Tobacco Use Types Packs/Day Years [...] you attend adventism or Patient refused 2021 anabaptist services? 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, 2 Hepatology Yue Burciaga M.D. [address] [place] [phone] Virtual Visit Transplant Matthew Jerome 2 YVikBGraeme, Lilian [address] [place] [phone] Office Visit Gastroenterology and Matthew Jerome 2 Hepatology YJoshuaBSumaBLilian Bedolla [address] [place] [phone] Appointment Radiology Matthew Jerome 2 YJoshuaBSumaBLilian Bedolla [address] [place] [address] [phone] Hospital Gastroenterology and Mousa, Matthew Cirrhos is Alcoholic (HCC) 2 Encounter Hepatology Tyrell Rodriguez M.D. [address] [place] [phone] Anesthesia Event Gastroenterology and Rl, 2 Hepatology Ervin Burgos M.D. [address] [place] [phone] Surgery Gastroenterology and Mousa, Matthew ESOPHAG OGASTRODUODENOSCOPY 2 Hepatology Tyrell Rodriguez M.D. [address] [place] [phone] Scheduled Orders Name Type Priority Associated Diagnoses Order S chedule Short renal clearance: Procedures Routine Cirrhosis Alcoholi c Once for 1 Occurrences Iothalamate (Renal (HCC) starting 10/03/2021 Studies Unit) Abnormal Liver until 2021 Function Test Ascites Pretransplant Recipient Evaluation Exam Preoperative Exam Scheduled Procedures Name Priority Associated Diagnoses Date/Time ESOPHAGOGASTRODUODENOSCOPY Cirrhosis Alc oholic (HCC) 03/20/2022 8:45 AM ACCOUNTS PAYABLE ADMINISTRATOR Hypertension Portal (HCC) documented as of [...] and its performa nce characteristics determined by [facility] in a manner consistent with CLIA requirements. This test has not been cleared or approved by the [place] d and Drug Administration. Specimen Anatomical Collection Method Collection Time Receive d Time (Source) Location / / Volume Laterality Varies (Blood, 10/03/2021 11:18 2 Venous) AM CDT 12:59 PM CDT Narrative [facility] - 10/06/2021 2:59 PM CDT Specimen Information: Specimen ID: [id number] Specimen Type: Varies Specimen Collection Start Date: 11:18 AM Specimen Received Date: 10/03/2021 12:59 PM Specimen ID: [id number] Specimen Type: Varies Specimen Collection Start Date: 12:07 PM Specimen Received Date: 10/03/2021 12:59 PM Specimen ID: [id number] Specimen Type: Varies Specimen Collection Start Date: 12:41 PM Specimen Received Date: 10/03/2021 12:59 PM Specimen ID: [id number] Specimen Type: Varies Specimen Collection Start Date: 12:10 PM Specimen Received Date: 10/03/2021 12:59 PM Specimen ID: [id number] Specimen Type: Varies Specimen Collection Start Date: 12:43 PM Specimen Received Date: 10/03/2021 12:59 PM Warren Hernández M.D., M.P.H. LAB BLOOD NON ADD-ON Performing Organization Address City/State/ZIP Code Phon e Number [address] [place] [address] Formerly [facility] [address] documented in [...] dose documented in this encounter Care Teams Supervisor Lathing Relationship Specialty Start Date End Date Elsewhere, Pcp PCP - General Family Medicine 03/10/20 11/30/21 [facility] 08/25/21 Ervin Schroeder MD Referring Provider Family Medicine 03/24/[address] [place] [phone] documented as of this encounter
--- OUTSIDE RECORDS SUMMARY | 2022-02-16 12:25 | XMS_ITS | Encounter Summary ---
:1990 Author Organization [facility] Address [address] [place] [address] Care Team Providers Name Role Phone Elsewhere, Pcp Primary Care Provider Unavailable Reason for Referral Behavioral Health (Routine) - Canceled Specialty Diagnoses / Procedures Referred By Contact Refer red To Contact Diagnoses Pain Leg Bilateral Radhames Neumann, [facility] Procedures Complex persistent pain program Ph.D., L.P. [address] [place] [address] [phone] Referral ID Status Reason Start Date Expiration Date Visits V isits Requested Authorized [id number] Canceled 10/06/2021 10/06/2022 1 1 Reason for Visit Transplant (Routine) - Authorized Specialty Diagnoses / Procedures Referred By Contact Refer red To Contact Transplant Surgery / Diagnoses Cirrhosis Alcoholic (HCC) Abnormal Liver Function Test Ascites Pretransplant Recipient Evaluation Exam Preoperative Exam Warren Hernández, [facility] Transplant M.Jeri, M.P.H. [address] [place] [address] Referral ID Status Reason Start Date Expiration Date Visits V asher Requested Authorized [id number] Authorized 08/25/2021 08/25/2022 1 1 Encounter Details Date Type Department Care Team Description 10/06/2021 Comprehensive Visit Warren Middleton M.D., M.P.H. [address] [place], [place] [address] Pain Leg Bilateral (Primary Dx); [facility] Radhames Neumann, Ph.D., L.P. [address] [place] [phone] Cirrhosis Alcoholic (HCC); Transplantation and Abnormal Liver Function Test; Clinical Regeneration Ascite s; in [place], Pretransplant Recipient Evaluation Exam; [place] Preoperative Exam [address] [place] [address] Social History Tobacco Use Types [...] you attend restorationist or Patient refused 2021 roman catholic services? 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 [...] at age 19 Overuse of prescribed or gial-fzw-itpeiul medication: none. She notes she never runs [...] Appointment Radiology Matthew Jerome 2 YTyrell, Lilian [address] [place] [phone] Appointment Gastroenterology and [place], 2 Hepatology Yue Burciaga M.D. [address] [place] [phone] Virtual Visit Transplant Matthew Jerome 2 YTyrell M.D. [address] [place] [phone] Office Visit Gastroenterology and Matthew Jerome 2 Hepatology Tyrell Rodriguez M.D. [address] [place] [phone] Appointment Radiology Matthew Jerome 2 Tyrell Rodriguez M.D. [address] [place] [phone] [facility] Gastroenterology and Queenie Matthew Cirrhos is Alcoholic (HCC) 2 Encounter Hepatology Tyrell Rodriguez M.D. [address] [place] [phone] Anesthesia Event Gastroenterology and [facility] 2 Hepatology Ervin Burgos M.D. [address] [place] [phone] Surgery Gastroenterology and Queenie Matthew ESOPHAG OGASTRODUODENOSCOPY 2 Hepatology Tyrell Rodriguez M.D. [address] [place] [phone] Scheduled Procedures Name Priority Associated Diagnoses Date/Time ESOPHAGOGASTRODUODENOSCOPY Cirrhosis Alc oholic (HCC) 03/20/2022 8:45 AM INVESTIGATOR OPERATOR Hypertension Portal (HCC) documented as of [...] documented as of this encounter Care Teams Lock Assembler Relationship Specialty Start Date End Date Elsewhere, Pcp PCP - General Family Medicine 03/10/20 11/30/21 [facility] 08/25/21 Ervin Schroeder MD Referring Provider Family Medicine 03/24/[address] [place] [address] documented as of this encounter
--- OUTSIDE RECORDS SUMMARY | 2022-02-16 12:25 | XMS_ITS | Encounter Summary ---
:1990 Author Organization [facility] Address [address] [place] [address] Care Team Providers Name Role Phone Elsewhere, Pcp Primary Care Provider Unavailable Encounter Details Date Type Department Care Team Description 10/15/2021 Documentation Department of Gastroenterology [place] in [place], Kaelyn Santillan M.D. 10[address] [facility] [address] [place] [address] [place], [place] [phone] Social History Tobacco Use Types Packs/Day [...] you attend episcopalian or Patient refused 2021 hoahaoism services? Do you belong to any clubs or No 02/10/2022 organizations such as episcopalian groups, unions, [employer]zz[employer] or athletic groups, or school groups? 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 PSC ? HCC ? HPS ? Budd Chiari ? FHF ? Biliary Atresia ? HCV ? PBC ? CCA ? PoPH ? Hemo-chromatosis ? PNF ? PFIC ? HBV ? AIH ? Neuro Endocrine Tumor ? FAP ? G5HZ-Vsibinabul ? HAT ? Cystic Fibrosis ? MEJIA [...] on her own after a trip to [place] last July 2020, but could not remember why she decided to. Prior to that she had 4 episodes of recurrent pancreatitis. She states that the 1st illness she had was after a trip to [place] when she had abdominal pain and she [...] saline contrast injection. Patent foramen ovale with xcypl-kb-ndeh shunt , 20 or greater bubbles seen [...] Appointment Radiology Queenie Matthew 2 YTyrell M.D. [address] [place] [phone] Appointment Gastroenterology demian Silver 2 Hepatology Yue Burciaga M.D. [address] [place] [phone] Virtual Visit Transplant Luischantell Matthew 2 YTyrell M.D. [address] [place] [phone] Office Visit Gastroenterology and Matthew Jerome 2 Hepatology Tyrell Rodriguez M.D. [address] [place] [phone] Appointment Radiology Matthew Jerome 2 YTyrell M.D. [address] [place] [phone] Hospital Gastroenterology and QueenieMatthew Cirrhos is Alcoholic (HCC) 2 Encounter Hepatology Tyrell Rodriguez M.D. [address] [place] [phone] Anesthesia Event Gastroenterology and Rl, 2 Hepatology Ervin Burgos M.D. [address] [place] [phone] Surgery Gastroenterology and Matthew Jerome ESOPHAG OGASTRODUODENOSCOPY 2 Hepatology Vik RodriguezLilian Salas [facility] [place] [phone] Scheduled Procedures Name Priority Associated Diagnoses Date/Time ESOPHAGOGASTRODUODENOSCOPY Cirrhosis Alc oholic (HCC) 03/20/2022 8:45 AM SHANK CEMENTER HAND Hypertension Portal (HCC) documented as of this encounter Visit Diagnoses Not on filedocumented in this encounter Additional Health Concerns Assessment Noted Time PHQ-9 Depression Total Score: 10 10/06/2021 5:00 PM CD T documented as of this encounter Care Teams Nuclear Engineering Technician Relationship Specialty Start Date End Date Elsewhere, Pcp PCP - General Family Medicine 03/10/20 11/30/21 [facility] [place] [facility] 08/25/21 Ervin Schroeder MD Referring Provider Family Medicine 03/24/[address] [place] [phone] documented as of this encounter
--- OUTSIDE RECORDS SUMMARY | 2022-02-16 12:25 | XMS_ITS | Encounter Summary ---
:1990 Author Organization [facility] Address [address] [place] [address] Care Team Providers Name Role Phone Elsewhere, Pcp Primary Care Provider Unavailable Reason for Referral Outpatient (Routine) - Closed Specialty Diagnoses / Procedures Referred By Contact Refer red To Contact Diagnoses Cirrhosis Alcoholic (HCC) Abnormal Liver Function Test Ascites Pretransplant Recipient Evaluation Exam Preoperative Exam Warren Hernández M.D., [facility] [place] Procedures BMD Bone Density Spine Hips M.P.H. [address] [place] [address] Referral ID Status Reason Start Date Expiration Date Visits Requ ested Visits Authorized [id number] Closed 08/25/2021 08/25/2022 1 1 Reason for Visit Outpatient (Routine) - Closed Specialty Diagnoses / Procedures Referred By Contact Refer red To Contact Diagnoses Cirrhosis Alcoholic (HCC) Abnormal Liver Function Test Ascites Pretransplant Recipient Evaluation Exam Preoperative Exam Warren Hernández M.D., [facility] [place] Procedures BMD Bone Density Spine Hips M.P.H. [address] [place] [address] Referral ID Status Reason Start Date Expiration Date Visits Requ ested Visits Authorized [id number] Closed 08/25/2021 08/25/2022 1 1 Encounter Details Date Type Department Care Team Description 10/09/2021 Hospital Encounter Department of Trav Hernándezosi s Alcoholic (HCC); Radiology, Warren Schaefer M.D., Abnormal Angelica er Function Test; [facility], M.P.H. Ascites; in [place], [address] [facility] Pretransplant Recipient Evaluation Exam; [place], [place] Preoperative Exam [address] [address] [place] [phone] [place], [place] (Work) [phone] Social History Tobacco Use [...] you attend jewish or Patient refused 2021 mormon services? 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 [address] [place] [phone] Appointment Gastroenterology demian Silver, 2 Hepatology Yue Burciaga M.D. [address] [place] [phone] Virtual Visit Transplant LuisNew abdular 2 YTyrell M.D. [address] [place] [address] [phone] Office Visit Gastroenterology and LuisNew abdular 2 Hepatology Tyrell Rodriguez M.D. [address] [place] [address] [phone] Appointment Radiology LuisNew abdular 2 YJoshuaBLilian Staples [address] [place] [phone] Hospital Gastroenterology and LuisMatthew abdul Cirrhos is Alcoholic (HCC) 2 Encounter Hepatology Tyrell Rodriguez M.D. [address] [place] [phone] Anesthesia Event Gastroenterology and lR, 2 Hepatology Ervin Burgos M.D. [address] [place] [phone] Surgery Gastroenterology and Mousa, Matthew ESOPHAG OGASTRODUODENOSCOPY 2 Hepatology Tyrell Rodriguez M.D. [address] [place] [phone] Scheduled Procedures Name Priority Associated Diagnoses Date/Time ESOPHAGOGASTRODUODENOSCOPY Cirrhosis Alc oholic (HCC) 03/20/2022 8:45 AM SENIOR PROJECT MANAGER ENGINEERING Hypertension Portal (HCC) documented as of this [...] Mineral Density (BMD) analysis perf ormed on [employer] with serial number [id number]. ? FINDINGS: Left Hip: Femur Neck: BMD [...] Mineral Density (BMD) analysis perf ormed on [employer] with serial number [id number]. FINDINGS: Left Hip: Femur Neck: BMD = [...] documented as of this encounter Care Teams Public Address System Installer Relationship Specialty Start Date End Date Elsewhere, Pcp PCP - General Family Medicine 03/10/20 11/30/21 [facility] [place] lab 08/25/21 Ervin Schroeder MD Referring Provider Family Medicine 03/24/[address] [place] [phone] documented as of this encounter
--- OUTSIDE RECORDS SUMMARY | 2022-02-16 12:25 | XMS_ITS | Encounter Summary ---
:1990 Author Organization [facility] Address [address] [place] [address] Care Team Providers Name Role Phone Elsewhere, Pcp Primary Care Provider Unavailable Reason for Visit Reason Comments Medication Question Encounter Details Date Type Department Care Team Description 10/13/2021 Nurse Triage Department of [facility] Jolynn Villarreal M edication Question Medicine, [facility], in [place], [place] ([facility]) [address] [place] [phone] Social History Tobacco Use Types Packs/Day Years [...] you attend advent or Patient refused 2021 orthodox services? 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 [address] [place] [phone] Virtual Visit Transplant Matthew Jerome 2 Tyrell Rodriguez M.D. [address] [place] [phone] Office Visit Gastroenterology and [place] 2 Hepatology Tyrell Rodriguez M.D. [address] [place] [phone] Appointment Radiology Matthew Jerome 2 Joshua RodriguezBSumaBLilian Bedolla [address] [place] [phone] [facility] Gastroenterology and Matthew Jerome Cirrhos is Alcoholic (HCC) 2 Encounter Hepatology Joshua RodriguezBSumaBiLlian Bedolla [address] [place] [phone] Anesthesia Event Gastroenterology and Rl, 2 Hepatology Ervin Burgos M.D. [address] [place] [phone] Surgery Gastroenterology and Matthew Jerome ESOPHAG OGASTRODUODENOSCOPY 2 Hepatology Joshua RodriguezB.BGraeme, Lilian [address] [place] [phone] Scheduled Procedures Name Priority Associated Diagnoses Date/Time ESOPHAGOGASTRODUODENOSCOPY Cirrhosis Alc oholic (HCC) 03/20/2022 8:45 AM ASSOCIATE PROFESSOR OF VIOLIN Hypertension Portal (HCC) documented as of this encounter Visit Diagnoses Not on filedocumented in this encounter Additional Health Concerns Assessment Noted Time PHQ-9 Depression Total Score: 10 10/06/2021 5:00 PM CD T documented as of this encounter Care Teams Social Security Assessor Relationship Specialty Start Date End Date Elsewhere, Pcp PCP - General Family Medicine 03/10/20 11/30/21 [facility] [place] [facility] 08/25/21 Ervin Schroeder MD Referring Provider Family Medicine 03/24/[address] [place] [phone] documented as of this encounter
--- OUTSIDE RECORDS SUMMARY | 2022-02-16 12:25 | XMS_ITS | Encounter Summary ---
:1990 Author Organization [facility] Address [address] [place] [address] Care Team Providers Name Role Phone Elsewhere, Pcp Primary Care Provider Unavailable Reason for Referral Outpatient (Routine) - Closed Specialty Diagnoses / Referred By Contact Referred To Procedures Contact Gastroenterology and Diagnoses Cirrhosis Alcoholic (HCC) Hypertension Portal (HCC) Thrombocytopenia (HCC) Abnormal Liver Function Test Deficiency Vitamin A Matthew Jerome [facility] Hepatology Lilian Santillan [address] [place] [address] Referral ID Status Reason Start Date Expiration Date Visits Requ ested Visits Authorized [id number] Closed 10/08/2021 10/08/2022 1 1 Scheduling Instructions 1 month follow up post transplant eval Reason for Visit Reason Comments Follow-up Outpatient (Routine) - Closed Specialty Diagnoses / Referred By Contact Referred To Procedures Contact Gastroenterology and Matthew Jerome [facility] Hepatology Lilian Santillan [address] [place] [address] Referral ID Status Reason Start Date Expiration Date Visits Requ ested Visits Authorized [id number] Closed 08/05/2021 08/05/2022 1 1 Encounter Details Date Type Department Care Team Description 10/08/2021 Office Visit Department of Queenie, Matthew Cirrhosis Alco holic (HCC) (Primary Dx); Gastroenterology in [place], Hyperten neptali Portal (HCC); [place], [place] Lilian Thrombocytopenia (HCC); 1025 [facility] 1025 [facility] Abnormal Liver Function Test; [place] [address] [place], [place] Deficiency Vitamin A [phone] Social History Tobacco Use Types Packs/Day Years [...] at Date Recorded Female 04/12/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 She states that she is transparent with the team and is willing to do anything requested that will help her get on the liver transplant list. We reviewed the recent consultation with surgery team, Cardiology, the social organization professor as well as the pain clinic. The [...] liver transplant evaluation with the team in [place], pending transplant psychiatry consultation. Unfortunately this was rescheduled until October 22, 2021. I will await her consultation before I present her case to the liver Transplant selection committee in [place], to evaluate her candidacy as a team. [...] PCP ?? #15 Newly diagnosed PFO with [id number] atrial shunt: Echo done March 2020 # [...] OLAYINKA Trotter Gastroenterology, Hepatology and Transplant hepatology [facility] documented in this encounter Plan of Treatment Upcoming Encounters Date Type Specialty Care Team Description Telemedicine Transplant 2 Appointment Radiology Matthew Jerome 2, M.B.B.S., M.D. [address] [place] [phone] Appointment Gastroenterology and Adrianne, 2 Hepatology Yue Burciaga M.D. [address] [place] [phone] Virtual Visit Transplant Matthew Jerome 2, M.B.B.S., M.D. [address] [place] [phone] Office Visit Gastroenterology and Matthew Jerome 2 Hepatology Tyrell Rodriguez M.D. [address] [place] [phone] Appointment Radiology Matthew Jerome 2, M.B.B.S., M.D. [address] [place] [phone] Hospital Gastroenterology and Matthew Jerome Cirrhos is Alcoholic (HCC) 2 Encounter Hepatology Tyrell Rodriguez M.D. [address] [place] [phone] Anesthesia Event Gastroenterology and Rl, 2 Hepatology Ervin Burgos M.D. [address] [place] [phone] Surgery Gastroenterology and Matthew Jerome ESOPHAG OGASTRODUODENOSCOPY 2 Hepatology Tyrell Rodriguez M.D. [address] [place] [phone] Scheduled Procedures Name Priority Associated Diagnoses Date/Time ESOPHAGOGASTRODUODENOSCOPY Cirrhosis Alc oholic (HCC) 03/20/2022 8:45 AM BILLING ASSISTANT Hypertension Portal (HCC) Scheduled Referrals Name [...] Organization Address City/State/ZIP Code Phon e Number [facility]- [address] [place] [address] [place] [address] System in [place] 2[address] [facility] (ABNORMAL) Prothrombin Time (PT) (12/02/2021 4:14 PM CDT) [facility] gist Method Time Signature Prothrombin 33.5 (H) [...] Organization Address City/State/ZIP Code Phon e Number [facility]- [address] [place] [address] [place] [address] System in [place] [address] [place] [address] documented in this encounter Visit Diagnoses Diagnosis Cirrhosis Alcoholic (HCC) - Primary Hypertension Portal (HCC) Thrombocytopenia (HCC) Abnormal Liver Function Test Deficiency Vitamin A Cirrhosis Alcoholic (HCC) Cirrhosis Alcoholic (HCC) Hypertension Portal (HCC) documented in this encounter Additional Health Concerns Assessment Noted Time PHQ-9 Depression Total Score: 10 10/06/2021 5:00 PM CD T documented as of this encounter Care Teams Horse Stud Manager Relationship Specialty Start Date End Date Elsewhere, Pcp PCP - General Family Medicine 03/10/20 11/30/21 [facility] [place] [facility] 08/25/21 Ervin Schroeder MD Referring Provider Family Medicine 03/24/211979 [address] [place] [address] documented as of this encounter
--- OUTSIDE RECORDS SUMMARY | 2022-02-16 12:25 | XMS_ITS | Encounter Summary ---
:1990 Author Organization [facility] Address [address] [place] [address] Care Team Providers Name Role Phone Elsewhere, Pcp Primary Care Provider Unavailable Encounter Details Date Type Department Care Team Description 10/09/2021 Clinical Communication Ramirez [facility] , Brigid G, Transplantation and MJules Clinical Regeneration in [address] [place] [address] [place] [phone] [place] [address] [phone] Social History Tobacco Use Types Packs/Day Years [...] you attend evangelical or Patient refused 2021 orthodoxy services? 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 [address] [place] [phone] Virtual Visit Transplant Matthew Jerome 2 YTyrell M.D. [address] [place] [phone] Office Visit Gastroenterology and Matthew Jerome 2 Hepatology Tyrell Rodriguez M.D. [address] [place] [phone] Appointment Radiology Matthew Jerome 2 Tyrell Rodriguez M.D. [address] [place] [phone] Hospital Gastroenterology and Queenie Matthew Cirrhos is Alcoholic (HCC) 2 Encounter Hepatology Tyrell Rodriguez M.D. [address] [place] [phone] Anesthesia Event Gastroenterology and [facility], 2 Hepatology Ervin Burgos M.D. [address] [place] [phone] Surgery Gastroenterology and Queenie Matthew ESOPHAG OGASTRODUODENOSCOPY 2 Hepatology Tyrell Rodriguez, Lilian [address] [place] [phone] Scheduled Procedures Name Priority Associated Diagnoses Date/Time ESOPHAGOGASTRODUODENOSCOPY Cirrhosis Alc oholic (HCC) 03/20/2022 8:45 AM MARKETING PROGRAM COORDINATOR Hypertension Portal (HCC) documented as of this encounter Visit Diagnoses Not on filedocumented in this encounter Additional Health Concerns Assessment Noted Time PHQ-9 Depression Total Score: 10 10/06/2021 5:00 PM CD T documented as of this encounter Care Teams Hide Washer Relationship Specialty Start Date End Date Elsewhere, Pcp PCP - General Family Medicine 03/10/20 11/30/21 [facility] [place] [facility] 08/25/21 Ervin Schroeder MD Referring Provider Family Medicine 03/24/[address] [place] [address] documented as of this encounter
--- OUTSIDE RECORDS SUMMARY | 2022-02-16 12:25 | XMS_ITS | Encounter Summary ---
:1990 Author Organization [facility] Address [address] [place] [address] Care Team Providers Name Role Phone Elsewhere, Pcp Primary Care Provider Unavailable Reason for Visit Reason Comments Follow up on caregiver plan Encounter Details Date Type Department Care Team Description 10/17/2021 Clinical Ramirez Santana, Follow up on Communication Center for Joel Gannon caregiver plan Transplantation and L.I.C.S.W., Clinical Regeneration M.S.W. in [place], [place] [facility] [address] [place], [place] [address] [place] [address] [place], [place] [phone] (Work) [phone] Social History Tobacco Use Types Packs/Day Years [...] you attend latter-day or Patient refused 2021 mosque services? Do you belong to any clubs or No 02/10/2022 organizations such as latter-day groups, unions, fraSunglass or athletic groups, or school groups? 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 ??in [place] Transplant Psychiatry (Pain Rehabilitation), 10/06/2021: - virtual [...] called the patient this afternoon (cell phone: [phone]) to attempt again follow up on her [...] Radiology LuisNew abdular 2 Tyrell Rodriguez M.D. [address] [place] [address] [phone] Appointment Gastroenterology and Adrianne, 2 Hepatology Yue Burciaga M.D. [address] [place] [phone] Virtual Visit Transplant LuisMatthew abdul 2 Tyrell Rodriguez M.D. [address] [place] [phone] Office Visit Gastroenterology and LuisMatthew abdul 2 Hepatology Tyrell Rodriguez M.D. [address] [place] [address] [phone] Appointment Radiology LuisNew abdular 2 YTyrell M.D. [address] [place] [address] [phone] Hospital Gastroenterology and LuisMatthew abdul Cirrhos is Alcoholic (HCC) 2 Encounter Hepatology Tyrell Rodriguez M.D. [address] [place] [address] [phone] Anesthesia Event Gastroenterology and Rl, 2 Hepatology Ervin Burgos M.D. [address] [place] [phone] Surgery Gastroenterology and Mousa, Matthew ESOPHAG OGASTRODUODENOSCOPY 2 Hepatology Tyrell Rodriguez M.D. [address] [place] [address] [phone] Scheduled Procedures Name Priority Associated Diagnoses Date/Time ESOPHAGOGASTRODUODENOSCOPY Cirrhosis Alc oholic (HCC) 03/20/2022 8:45 AM SUSTAINABLE COMMUNITIES DESIGNER Hypertension Portal (HCC) documented as of this encounter Visit Diagnoses Not on filedocumented in this encounter Additional Health Concerns Assessment Noted Time PHQ-9 Depression Total Score: 10 10/06/2021 5:00 PM CD T documented as of this encounter Care Teams Level Vial Setter Relationship Specialty Start Date End Date Elsewhere, Pcp PCP - General Family Medicine 03/10/20 11/30/21 [facility] [place] lab 08/25/21 Ervin Schroeder MD Referring Provider Family Medicine 03/24/[address] [place] [address] documented as of this encounter
--- OUTSIDE RECORDS SUMMARY | 2022-02-16 12:25 | XMS_ITS | Encounter Summary ---
:1990 Author Organization [facility] Address [address] [place] [address] Care Team Providers Name Role Phone Elsewhere, Pcp Primary Care Provider Unavailable Reason for Visit Transplant (Routine) - Closed Specialty Diagnoses / Procedures Referred By Contact Refer red To Contact Transplant Surgery / Warren Hernández Roc[facility] Transplant Lilian, M.P.H. [address] [place] [address] Referral ID Status Reason Start Date Expiration Date Visits Requ ested Visits Authorized [id number] Closed 08/26/2021 08/26/2022 1 1 Encounter Details Date Type Department Care Team Description 10/03/2021 Office Visit Silvano Funez M.D. [address] [place] [phone] Patent Foramen Ovale (HCC) (Primary Dx); [facility] Abelino Chow M.D. [address] [place] [phone] Hypertension Portal (HCC); Transplantation and Cirrhosi s Alcoholic (HCC); Clinical Regeneration in Pre transplant Recipient Evaluation Exam [place], [place] [address] [place] [phone] Social History Tobacco Use Types Packs/Day [...] you attend faith or Patient refused 2021 catholic services? 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 documented in this encounter Plan of Treatment Upcoming Encounters Date Type Specialty Care Team Description Telemedicine Transplant 2 Appointment Radiology Matthew Jerome 2 YJoshuaBSumaBSumaSSuma, Lilian [address] [place] [phone] Appointment Gastroenterology and Adrianne, 2 Hepatology Yue Burciaga M.D. [address] [place] [phone] Virtual Visit Transplant Queenie Matthew 2 Elizabeth Rodriguez.B.B.SLilian Moise [address] [place] [phone] Office Visit Gastroenterology and Matthew Jerome 2 Hepatology Joshua RodriguezB.B.SLilian Moise [address] [place] [phone] Appointment Radiology Matthew Jerome 2 Y M.B.B.SLilian Moise [address] [place] [phone] Hospital Gastroenterology and Matthew Jerome Cirrhos is Alcoholic (HCC) 2 Encounter Hepatology Joshua RodriguezB.B.SLilian Moise [address] [place] [phone] Anesthesia Event Gastroenterology and Rl, 2 Hepatology Ervin Burgos M.D. [address] [place] [phone] Surgery Gastroenterology and Mousa, Matthew ESOPHAG OGASTRODUODENOSCOPY 2 Hepatology Tyrell Rodriguez M.D. [address] [place] [phone] Scheduled Procedures Name Priority Associated Diagnoses Date/Time ESOPHAGOGASTRODUODENOSCOPY Cirrhosis Alc oholic (HCC) 03/20/2022 8:45 AM RETAIL PROPERTY MANAGER Hypertension Portal (HCC) documented as of this encounter Visit Diagnoses Diagnosis Patent Foramen Ovale (HCC) - Primary Hypertension Portal (HCC) Cirrhosis Alcoholic (HCC) Pretransplant Recipient Evaluation Exam Cirrhosis Alcoholic (HCC) Cirrhosis Alcoholic (HCC) Hypertension Portal (HCC) documented in this encounter Care Teams Gambling Floor Supervisor Relationship Specialty Start Date End Date Elsewhere, Pcp PCP - General Family Medicine 03/10/20 11/30/21 [facility] [place] [facility] 08/25/21 Ervin Schroeder MD Referring Provider Family Medicine 03/24/[address] [place] [address] documented as of this encounter
--- OUTSIDE RECORDS SUMMARY | 2022-02-16 12:25 | XMS_ITS | Encounter Summary ---
:1990 Author Organization [facility] Address [address] [place] [address] Care Team Providers Name Role Phone Elsewhere, Pcp Primary Care Provider Unavailable Encounter Details Date Type Department Care Team Description 10/07/2021 Hospital Encounter Department of Rut Hernández s Alcoholic (HCC); Pulmonary Medicine Warren Schaefer M.D., Abnorm al Liver Function Test; in [facility]; [place] [address] [place] [address] Pretransplant Recipient Evaluation Exam; 1025 [place], [place] [phone] Social History Tobacco Use Types Packs/Day [...] you attend mu-ism or Patient refused 2021 gnosticist services? Do you belong to any clubs or No 02/10/2022 organizations such as mu-ism groups, unions, fraMotally or athletic groups, or school groups? 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 [address] [place] [phone] Appointment Gastroenterology and Adrianne, 2 Hepatology Yue Burciaga M.D. [address] [place] [phone] Virtual Visit Transplant LuisNew abdular 2 Tyrell Rodriguez M.D. [address] [place] [phone] Office Visit Gastroenterology and Matthew Jerome 2 Hepatology Tyrell Rodriguez M.D. [address] [place] [phone] Appointment Radiology [facility] 2 Tyrell Rodriguez M.D. [address] [place] [phone] Hospital Gastroenterology and [facility] Cirrhos is Alcoholic (HCC) 2 Encounter Hepatology Tyrell Rodriguez M.D. [address] [place] [phone] Anesthesia Event Gastroenterology and Rl, 2 Hepatology Ervin Burgos M.D. [address] [place] [phone] Surgery Gastroenterology and [facility] ESOPHAG OGASTRODUODENOSCOPY 2 Hepatology Tyrell Rodriguez M.D. [address] [place] [phone] Scheduled Procedures Name Priority Associated Diagnoses Date/Time ESOPHAGOGASTRODUODENOSCOPY Cirrhosis Alc oholic (HCC) 03/20/2022 8:45 AM EXPERIMENTAL PSYCHOLOGIST Hypertension Portal (HCC) documented as of this [...] CDT) P athologist Signature FVC 4.04 L [facility] SU[facility] FVC% 111 % [facility] FVCLLN 2.88 L [facility] SU[facility] FEV1 3.62 L [facility] FEV1% 118 % [facility] SU[facility] [id number] 2.45 L [facility] FEV1/FVC 90 % [facility] SU[facility] FEV1/FVCLLN 73 % [facility] FEF 25-75 5.30 L/sec [facility] SU[facility] OFJ93-94% 154 % [facility] SUITE [id number] 2.20 L/sec [facility] SVC 4.19 L [facility] SU[facility] RV 1.17 L [facility] SU[facility] RVULN 2.33 L [facility] TLC 5.36 L [facility] TLC% 111 % [facility] SU[facility] TLCLLN 3.47 L [facility] SU[facility] RV/TLC 22 % [facility] SU[facility] RV/TLC% 72 % [facility] SU[facility] RV/TLCuln 44 % [facility] SU[facility] DLCO 16.63 ml/min/mmHg [facility] SU[facility] DLCO% 77 % [facility] SU[facility] DLCOlln 15.76 ml/min/mmHg [facility] SU[facility] DLCOc 20.09 ml/min/mmHg [facility] SU[facility] DLCOc% 94 % [facility] SU[facility] VA 5.32 L [facility] SU[facility] VA% 115 % [facility] SU[facility] VAlln 3.76 L [facility] Height 159.00 [facility] Weight in Kg 59.70 [facility] BMI 23.6 [facility] Specimen (Source) Anatomical Collection Method Collection Time Re ceived Time Location / / Volume Laterality 10/07/2021 2:32 PM CDT Impressions [facility] - 10/10/2021 8:25 AM C DT TECHNICAL [...] Organization Address City/State/ZIP Code Phon e Number [facility] NA documented in this encounter Visit Diagnoses Diagnosis Cirrhosis Alcoholic (HCC) Abnormal Liver Function Test [facility] Pretransplant Recipient Evaluation Exam Preoperative Exam Cirrhosis Alcoholic (HCC) Cirrhosis Alcoholic (HCC) Hypertension Portal (HCC) documented in this encounter Additional Health Concerns Assessment Noted Time PHQ-9 Depression Total Score: 10 10/06/2021 5:00 PM CD T documented as of this encounter Care Teams Animal Geneticist Relationship Specialty Start Date End Date Elsewhere, Pcp PCP - General Family Medicine 03/10/20 11/30/21 [facility] [place] lab 08/25/21 Ervin Schroeder MD Referring Provider Family Medicine 03/24/[address] [place] [address] documented as of this encounter
--- OUTSIDE RECORDS SUMMARY | 2022-02-16 12:25 | XMS_ITS | Encounter Summary ---
:1990 Author Organization [facility] Address [address] [place] [address] Care Team Providers Name Role Phone Elsewhere, Pcp Primary Care Provider Unavailable Reason for Visit Reason Comments Edema Encounter Details Date Type Department Care Team Description 10/13/2021 Nurse Triage [facility] Department of Nola Polanco R .N. [facility] Family Medicine and Residency in [place], [place] [address] [place] [phone] Social History Tobacco Use Types Packs/Day [...] you attend sikh or Patient refused 2021 rastafari services? 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 [address] [place] [address] [phone] Appointment Gastroenterology demian Silver, 2 Hepatology Yue Burciaga M.D. [address] [place] [phone] Virtual Visit Transplant Matthew Jerome 2 YTyrell M.D. [address] [place] [address] [phone] Office Visit Gastroenterology and Matthew Jerome 2 Hepatology Tyrell Rodriguez M.D. [address] [place] [address] [phone] Appointment Radiology Matthew Jerome 2 YTyrell M.D. [address] [place] [address] [phone] Hospital Gastroenterology and Matthew Jerome Cirrhos is Alcoholic (HCC) 2 Encounter Hepatology Tyrell Rodriguez M.D. [address] [place] [address] [phone] Anesthesia Event Gastroenterology and Rl, 2 Hepatology Ervin Burgos M.D. [address] [place] [address] [phone] Surgery Gastroenterology and Mousa, Matthew ESOPHAG OGASTRODUODENOSCOPY 2 Hepatology Tyrell Rodriguez M.D. [address] [place] [phone] Scheduled Procedures Name Priority Associated Diagnoses Date/Time ESOPHAGOGASTRODUODENOSCOPY Cirrhosis Alc oholic (HCC) 03/20/2022 8:45 AM AEROSOL SUPERVISOR Hypertension Portal (HCC) documented as of this encounter Visit Diagnoses Not on filedocumented in this encounter Additional Health Concerns Assessment Noted Time PHQ-9 Depression Total Score: 10 10/06/2021 5:00 PM CD T documented as of this encounter Care Teams Color Grinder Relationship Specialty Start Date End Date Elsewhere, Pcp PCP - General Family Medicine 03/10/20 11/30/21 [facility] [place] [facility] 08/25/21 Ervin Schroeder MD Referring Provider Family Medicine 03/24/[address] [place] [phone] documented as of this encounter
--- OUTSIDE RECORDS SUMMARY | 2022-02-16 12:25 | XMS_ITS | Encounter Summary ---
:1990 Author Organization [facility] Address [address] [place] [address] Care Team Providers Name Role Phone Elsewhere, Pcp Primary Care Provider Unavailable Reason for Visit Reason Comments Appointment [facility] Encounter Details Date Type Department Care Team Description 10/10/2021 Clinical Ramirez Barajas, Camron coreas ([facility] Communication Center for PRANEETH Rowland) Transplantation and Lilian, Ph.D. Clinical [facility] [address] [facility] [address] [facility] [phone] Social History Tobacco Use Types Packs/Day Years [...] you attend yarsanism or Patient refused 2021 mandaen services? Do you belong to any clubs or No 02/10/2022 organizations such as yarsanism groups, unions, [employer] or athletic groups, or school groups? How [...] or the highest technical, or vocational p [facility] degree you have received? 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 [address] [place] [phone] Virtual Visit Transplant Luischantell Matthew 2 YTyrell M.D. [address] [place] [phone] Office Visit Gastroenterology and Matthew Jerome 2 Hepatology Tyrell Rodriguez M.D. [address] [place] [phone] Appointment Radiology Matthew Jerome 2 Tyrell Rodriguez M.D. [address] [place] [phone] [facility] Gastroenterology and Matthew Jerome Cirrhos is Alcoholic (HCC) 2 Encounter Hepatology Tyrell Rodriguez M.D. [address] [place] [phone] Anesthesia Event Gastroenterology and Rl, 2 Hepatology Ervin Burgos M.D. [address] [place] [phone] Surgery Gastroenterology and Matthew Jerome ESOPHAG OGASTRODUODENOSCOPY 2 Hepatology Joshua RodriguezB.BGraeme, Lilian [address] [place] [phone] Scheduled Procedures Name Priority Associated Diagnoses Date/Time ESOPHAGOGASTRODUODENOSCOPY Cirrhosis Alc oholic (HCC) 03/20/2022 8:45 AM PUBLIC ADDRESS ANNOUNCER Hypertension Portal (HCC) documented as of this encounter Visit Diagnoses Not on filedocumented in this encounter Additional Health Concerns Assessment Noted Time PHQ-9 Depression Total Score: 10 10/06/2021 5:00 PM CD T documented as of this encounter Care Teams Progress Man Relationship Specialty Start Date End Date Elsewhere, Pcp PCP - General Family Medicine 03/10/20 11/30/21 [facility] [place] [facility] 08/25/21 Ervin Schroeder MD Referring Provider Family Medicine 03/24/[address] [place] [address] documented as of this encounter
--- OUTSIDE RECORDS SUMMARY | 2022-02-16 12:25 | XMS_ITS | Encounter Summary ---
:1990 Author Organization [facility] Address [address] [place] [address] Care Team Providers Name Role Phone Elsewhere, Pcp Primary Care Provider Unavailable Reason for Visit Reason Comments Fatigue Encounter Details Date Type Department Care Team Description 10/17/2021 Nurse Triage Department of Laura Flor, Fatigue Medicine, [facility], R.N. 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 Call your doctor (or SOAKER HELPER/PA) when the office opens and make an [...] 3 days Protocols used: WEAKNESS (GENERALIZED) AND [id number] documented in this encounter Plan of Treatment Upcoming Encounters Date Type Specialty Care Team Description Telemedicine Transplant 2 Appointment Radiology Matthew Jerome 2, M.B.B.S., M.D. [address] [place] [address] Appointment Gastroenterdina and Adrianne, 2 Hepatology Yue Burciaga M.D. [address] [place] [phone] Virtual Visit Transplant Matthew Jerome 2 YTyrell M.D. [address] [place] [phone] Office Visit Gastroenterology and Matthew Jerome 2 Hepatology Tyrell Rodriguez M.D. [address] [place] [phone] Appointment Radiology LuisMatthew abdul 2 YTyrell M.D. [address] [place] [phone] Hospital Gastroenterology and Matthew Jerome Cirrhos is Alcoholic (HCC) 2 Encounter Hepatology Tyrell Rodriguez M.D. [address] [place] [phone] Anesthesia Event Gastroenterology and Rl, 2 Hepatology Ervin Burgos M.D. [address] [place] [phone] Surgery Gastroenterology and Matthew Jerome ESOPHAG OGASTRODUODENOSCOPY 2 Hepatology Tyrell Rodriguez M.D. [address] [place] [phone] Scheduled Procedures Name Priority Associated Diagnoses Date/Time ESOPHAGOGASTRODUODENOSCOPY Cirrhosis Alc oholic (HCC) 03/20/2022 8:45 AM GOLD BLOWER Hypertension Portal (HCC) documented as of this encounter Visit Diagnoses Not on filedocumented in this encounter Additional Health Concerns Assessment Noted Time PHQ-9 Depression Total Score: 10 10/06/2021 5:00 PM CD T documented as of this encounter Care Teams Log Brander Relationship Specialty Start Date End Date Elsewhere, Pcp PCP - General Family Medicine 03/10/20 11/30/21 [facility] [place] lab 08/25/21 Ervin Schroeder MD Referring Provider Family Medicine 03/24/[address] [place] [phone] documented as of this encounter
--- OUTSIDE RECORDS SUMMARY | 2022-02-16 12:26 | XMS_ITS | Encounter Summary ---
:1990 Author Organization [facility] Address [address] [place] [address] Care Team Providers Name Role Phone Elsewhere, Pcp Primary Care Provider Unavailable Reason for Referral Transplant (Routine) - Authorized Specialty Diagnoses / Procedures Referred By Contact Refer red To Contact Transplant Surgery / Matthew Jerome [place] [facility] Transplant M.B.B.S., M.D. [address] [place] [phone] Referral ID Status Reason Start Date Expiration Date Visits V isits Requested Authorized [id number] Authorized 10/27/2021 10/27/2022 1 1 Scheduling Instructions May be phone or video- patient preferenc e. Scheduled in [place]. Thanks Transplant (Routine) - Authorized Specialty Diagnoses / Procedures Referred By Contact Refer red To Contact Transplant Surgery / Matthew Jerome [place] [facility] Transplant Lilian Santillan [address] [place] [phone] Referral ID Status Reason Start Date Expiration Date Visits V isisocrates Requested Authorized [id number] Authorized 10/27/2021 10/27/2022 1 1 Scheduling Instructions [place] Scheduled in [place]. Thanks Reason for Visit Reason Comments Patient Education 1:1 education Encounter Details Date Type Department Care Team Description 10/01/2021 Education Warren Carter M.D., M.P.H. [address] [place] [address] Cirrhosis Al[facility]olic [facility]HCC[facility] Chano Engle, R.N., C.C.T.C. Abnormal Liver Function Test; Transplantation and Ascites; Clinical Regeneration in Pre transplant Recipient Evaluation Exam; [place], [place] Preoperative Exam [address] [place] [address] Social History Tobacco Use Types Packs/Day [...] you attend congregation or Patient refused 2021 temple services? Do [...] or the highest technical, or vocational p [employer] degree you have received? 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 All questions were answered. Catia Carias has [...] Matthew Jerome 2 Tyrell Rodriguez M.D. [address] [place] [phone] Appointment Gastroenterology demian Silver 2 Hepatology Yue Burciaga M.D. [address] [place] [phone] Virtual Visit Transplant Matthew Jerome 2 Tyrell Rodriguez M.D. [address] [place] [phone] Office Visit Gastroenterology and Matthew Jerome 2 Hepatology Tyrell Rodriguez M.D. [address] [place] [phone] Appointment Radiology Matthew Jerome 2 YTyrell M.D. [address] [place] [phone] Hospital Gastroenterology and Queenie Matthew Cirrhos is Alcoholic (HCC) 2 Encounter Hepatology Tyrell Rodriguez M.D. [address] [place] [phone] Anesthesia Event Gastroenterology and Rl, 2 Hepatology Ervin Burgos M.D. [address] [place] [phone] Surgery Gastroenterology and Matthew Jerome ESOPHAG OGASTRODUODENOSCOPY 2 Hepatology Tyrell Rodriguez M.D. [address] [place] [phone] Pending Results Name Type Priority Associated Diagnoses [...] Cirrhosis Alc oholic (HCC) 03/20/2022 8:45 AM CATERPILLAR MECHANIC Hypertension Portal (HCC) Scheduled Referrals Name Type [...] [facility] [address] [place], [place] [address] [place] [place] [address] [facility] 200 [facility] (ABNORMAL) CRP (C-Reactive Protein) (02/12/2022 10:16 AM CDT) [facility] C-Reactive 12.1 (H) <=8.0 mg/L 02/12/2022 DTL Protein (CRP), 11:18 AM CDT S Specimen Anatomical Collection Method Collection Time Receive d Time (Source) Location / / Volume Laterality Blood (Blood, 02/12/2022 10:16 02/12/2022 Venous) AM CDT 10:57 AM CDT Matthew Santillan M.D. LAB BLOOD ADD-ON Performing Organization Address City/State/ZIP Code Phon e Number [facility] - [facility] [address] [place], [place] [address] [place] [address] [facility] [address] [facility] AFP (Alpha-Fetoprotein), Tumor Marker (02/12/2022 10:16 AM CDT) [facility] Alpha-Fetoprote 7.9 ng/mL 02/12/2022 SDSC in, Tumor [...] method is an immunoenzymatic assay manufactured by [employer] and is tested on the Richie [...] M.D. LAB BLOOD ADD-ON Performing Organization Address City/State/[facility] Code Phon e Number [facility] [address] [place], [place] [address] SUPPORT [place], [place] [address] [place] [address] Dr. CHAPPELL (ABNORMAL) CBC with Differential, Blood (02/12/2022 10:16 AM CDT) [facility] Method Time Signature Hemoglobin 9.4 (L) [...] M.D. LAB BLOOD ADD-ON Performing Organization Address City/[facility] Phon e Number [facility] - [address] (ABNORMAL) Bilirubin, Direct (02/12/2022 10:16 AM CDT) P athologist Signature Bilirubin, 4.4 (H) 0.0 - 0.3 02/12/2022 DT Direct, S mg/dL 11:15 AM CDT Specimen Anatomical Collection Method Collection Time Receive d Time (Source) Location / / Volume Laterality Blood (Blood, 02/12/2022 10:16 02/12/2022 Venous) AM CDT 10:57 AM CDT Matthew Santillan M.D. LAB BLOOD ADD-ON Performing Organization Address City/[facility] Phon e Number [facility] - [address] (ABNORMAL) Comprehensive Metabolic Panel (02/12/2022 10:16 [...] [facility] - [address] [place], [place] [address] [place] [place] [address] [facility] [address] documented in this encounter Visit Diagnoses Diagnosis Cirrhosis Alcoholic (HCC) Abnormal Liver Function Test Ascites Pretransplant Recipient Evaluation Exam Preoperative Exam Cirrhosis Alcoholic (HCC) Cirrhosis Alcoholic (HCC) Hypertension Portal (HCC) documented in this encounter Care Teams Transplant Coordinator Relationship Specialty Start Date End Date Elsewhere, Pcp PCP - General Family Medicine 03/10/20 11/30/21 [facility] [place] [facility] 08/25/21 Ervin Schroeder MD Referring Provider Family Medicine 03/24/[address] [place] [address] documented as of this encounter
--- OUTSIDE RECORDS SUMMARY | 2022-02-16 12:26 | XMS_ITS | Encounter Summary ---
:1990 Author Organization [facility] Address [address] [place] [address] Care Team Providers Name Role Phone Elsewhere, Pcp Primary Care Provider Unavailable Reason for Referral Outpatient (Routine) - Closed Specialty Diagnoses / Procedures Referred By Contact Refer red To Contact Diagnoses Fatty Liver Failure Liver (HCC) Cirrhosis Alcoholic (HCC) Preoperative Exam Ascites Abnormal Liver Function Test Warren Hernández M.D., [facility] Procedures Six Minute Walk M.P.H. [address] [place] [address] Referral ID Status Reason Start Date Expiration Date Visits Requ ested Visits Authorized [id number] Closed 09/08/2021 09/08/2022 1 1 Reason for Visit Outpatient (Routine) - Closed Specialty Diagnoses / Procedures Referred By Contact Refer red To Contact Diagnoses Fatty Liver Failure Liver (HCC) Cirrhosis Alcoholic (HCC) Preoperative Exam Ascites Abnormal Liver Function Test Warren Hernández M.D., [facility] Procedures Six Minute Walk M.P.H. [address] [place] [address] Referral ID Status Reason Start Date Expiration Date Visits Requ ested Visits Authorized [id number] Closed 09/08/2021 09/08/2022 1 1 Encounter Details Date Type Department Care Team Description 09/24/2021 Hospital Encounter Department of [place], Fatty Li fred; Pulmonary Warren A, Failure Liver ( HCC); Rehabilitation Lilian, M.P.H. Cirrhosis Alcoholic (HCC); [facility] [address] [facility] Preoperative Exam; [address] [place], [place] Ascites; [place] [phone] Abnormal Liver Function Test [phone] Social History Tobacco Use Types Packs/Day Years [...] you attend gnosticism or Patient refused 2021 worship services? 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 [address] [place] [phone] Virtual Visit Transplant Matthew Jerome 2 Y M.B.B.SSuma, Lilian [address] [place] [phone] Office Visit Gastroenterology and Matthew Jerome 2 Hepatology Elizabeth Rodriguez.B.B.SLilian Moise [address] [place] [phone] Appointment Radiology Matthew Jerome 2 Y M.B.B.SLilian Moise [address] [place] [phone] Hospital Gastroenterology and Matthew Jerome Cirrhos is Alcoholic (HCC) 2 Encounter Hepatology Jennifer M.B.B.SLilian Moise [address] [place] [phone] Anesthesia Event Gastroenterology and Rl, 2 Hepatology Ervin Burgos M.D. [address] [place] [phone] Surgery Gastroenterology and Mousa, Matthew ESOPHAG OGASTRODUODENOSCOPY 2 Hepatology Tyrell Rodriguez M.D. [address] [place] [phone] Scheduled Procedures Name Priority Associated Diagnoses Date/Time ESOPHAGOGASTRODUODENOSCOPY Cirrhosis Alc oholic (HCC) 03/20/2022 8:45 AM ARCHITECTURAL MODEL MAKER Hypertension Portal (HCC) documented as of [...] documented in this encounter Care Teams Hand Worker Relationship Specialty Start Date End Date Elsewhere, Pcp PCP - General Family Medicine 03/10/20 11/30/21 [facility] [place] lab 08/25/21 Ervin Schroeder MD Referring Provider Family Medicine 03/24/[address] [place] [phone] documented as of this encounter
--- OUTSIDE RECORDS SUMMARY | 2022-02-16 12:26 | XMS_ITS | Encounter Summary ---
:1990 Author Organization [facility] Address [address] [place] [address] Care Team Providers Name Role Phone Elsewhere, Pcp Primary Care Provider Unavailable Reason for Visit Transplant (Routine) - Closed Specialty Diagnoses / Procedures Referred By Contact Refer red To Contact Transplant Surgery / Diagnoses Cirrhosis Alcoholic (HCC) Abnormal Liver Function Test Ascites Pretransplant Recipient Evaluation Exam Preoperative Exam Warren Hernández, [facility] Transplant M.D., M.P.H. [address] [place] [address] Referral ID Status Reason Start Date Expiration Date Visits Requ ested Visits Authorized [id number] Closed 08/25/2021 08/25/2022 1 1 Encounter Details Date Type Department Care Team Description 10/02/2021 Comprehensive Visit Ramirez Adler, Cirrhosis Alcoholic (HCC); [facility] [place], Abnormal Liver Function Test; Transplantation and M.D. Ascites; Clinical Regeneration [address] [place] [address] Pretransplant Recipient Evaluation Exam; in [place], [place] Preoperative Exam [place] [id number] [place] [address] [place], [place] (Work) [phone] [phone] Social History Tobacco Use Types Packs/Day Years [...] you attend gnosticism or Patient refused 2021 confucianist services? 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 [address] [place] [phone] Appointment Gastroenterology and Adrianne, 2 Hepatology Yue Burciaga M.D. [address] [place] [phone] Virtual Visit Transplant Matthew Jerome 2 YTyrell M.D. [address] [place] [address] [phone] Office Visit Gastroenterology and [facility] Matthew 2 Hepatology Tyrell Rodriguez M.D. [address] [place] [phone] Appointment Radiology [facility] Matthew 2 Tyerll Rodriguez M.D. [address] [place] [phone] [facility] Gastroenterology and [facility] Cirrhos is Alcoholic (HCC) 2 Encounter Hepatology Tyrell Rodriguez M.D. [address] [place] [phone] Anesthesia Event Gastroenterology and Rl, 2 Hepatology Ervin Burgos M.D. [address] [place] [address] [phone] Surgery Gastroenterology and [facility] ESOPHAG OGASTRODUODENOSCOPY 2 Hepatology Tyrell Rodriguez M.D. [address] [place] [phone] Scheduled Procedures Name Priority Associated Diagnoses Date/Time ESOPHAGOGASTRODUODENOSCOPY Cirrhosis Alc oholic (HCC) 03/20/2022 8:45 AM CASE ASSISTANT Hypertension Portal (HCC) documented as of this encounter Visit Diagnoses Diagnosis Cirrhosis Alcoholic (HCC) Abnormal Liver Function Test Ascites Pretransplant Recipient Evaluation Exam Preoperative Exam Cirrhosis Alcoholic (HCC) Cirrhosis Alcoholic (HCC) Hypertension Portal (HCC) documented in this encounter Care Teams Seo Executive Relationship Specialty Start Date End Date Elsewhere, Pcp PCP - General Family Medicine 03/10/20 11/30/21 [facility] [place] lab 08/25/21 Ervin Schroeder MD Referring Provider Family Medicine 03/24/[address] [place] [phone] documented as of this encounter
--- OUTSIDE RECORDS SUMMARY | 2022-02-16 12:26 | XMS_ITS | Encounter Summary ---
:1990 Author Organization [facility] Address [address] [place] [address] Care Team Providers Name Role Phone Elsewhere, Pcp Primary Care Provider Unavailable Reason for Visit Transplant (Routine) - Closed Specialty Diagnoses / Procedures Referred By Contact Refer red To Contact Transplant Surgery / Diagnoses Cirrhosis Alcoholic (HCC) Abnormal Liver Function Test Ascites Pretransplant Recipient Evaluation Exam [facility] M.P.H. [address] [place] [address] Referral ID Status Reason Start Date Expiration Date Visits Requ ested Visits Authorized [id number] Closed 08/25/2021 08/25/2022 1 1 Encounter Details Date Type Department Care Team Description 09/30/2021 Clinical Support Warren Carter M.D., M.P.H. [address] [place] [address] Cirrhosis Alcoholic (HCC); [facility] Joel Tan L.I.C.SSumaW., M.S.W. [address] [place] [address] Abnormal Liver Function Test; Transplantation and Ascites; Clinical Regeneration Pretra nsplant Recipient Evaluation Exam; in [facility] Preoperative Exam [address] [place] [address] Social History Tobacco Use Types Packs/Day Years [...] you attend anglican or Patient refused 2021 jainism services? 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 Migue Schroeder at [facility] in [place], [place]. Primary language: Frisian For this interview, the patient utilized language services: No Citizenship US citizen: Yes [place] resident: Yes Race/Ethnicity: Race: White Ethnicity: Guyanese, Descent Disclaimer: ?? The patient and her [...] understanding. ?? The role of the Transplant Microphone Boom Operator was explained. ?? Selection Committee: The [...] of origin: The patient was raised in [place], [place]. Her parents when she was 20 years old. Her mother remarried. The patient calls her step- father, Siva, her bonus father. The patient's mother and step-father live in [place], [place]. The patient's father did not remarry. He lives in [place], [place], which is 10-12 minutes from the [...] the clothing department at the [facility] in [place], [place]. She stopped working in January 2021 as she was advised to no longer work due to her medical condition. Patient's plan for extended time off for recovery: The patient does not currently have a source of income. Boyfriend's work: The patient's boyfriend works multimedia assistant as a paint sketch liner for a powder coating company called [employer]. Spiritual Practices/Anabaptism/Culture Spirituality / Anabaptism / Culture: The patient stated she does not have a jainism preference. The patient was informed of the availability of Revenue Specialist Services at [facility]. History The patient stated she has never [...] a nurse come into her home from [facility] every (phone: [phone]). The nurse sets up the patient's medications [...] The patient lives approximately one hour from [place]. She would arrive via private vehicle. Relocation Plan: The patient was provided with information on the [facility]. Shewas also provided with information on the Television Maintenance Man Services at [facility] who can assist with answering questions about local lodging accommodations. We did not have an opportunity to discuss these in detail today due to the time constraints of our interview, however I have encouraged the patient tocall me should she have additional questions. FINANCES/INSURANCE Primary insurance: [employer] BLUE [employer]US HMO ([place] Medicaid) Secondary/Supplemental insurance: None Does patient have a benefit for travel, lodging and/or meals through insurance? The patient does notknow. I advised her to contact [facility] Director Market Research to inquire about her eligibility for benefits. Household Information Number of persons in household: Two (patient and her boyfriend) Type of housing: Rent Source of household income: The patient does not currently have a source of income. She stated she is not receiving any assistance (such as food support) through her [facility] Director Market Research office. She has not yet applied for assistance. The patient's boyfriend has income through his multimedia assistant employment wages. Current Financial Concerns: The patient [...] the application process. Pharmacy Pharmacy coverage: [employer] BLUE [employer] ([place] Medicaid) Current medication(s) received through prescription assistance [...] directive. I provided the patient with [facility]'s blank advance directive booklet and provided her with education on advance directives. I encouraged the patient to provide a copy of an advance directive to [facility], should she completed one in the future, [...] Service and had to meet with a front desk officer. The patient was asked how she [...] with pain. The patient showed me [place] Card on her cell phone. She stated she started using medical cannabis in May 2021 and that it was prescribed for chronic leg pain which she states it is either neuropathy brought on by cirrhosis, chcf effects brought on by drugs used to [...] have a couple of puffs. The patient's [place]: [id number]. Family History: Father - alcohol (past, not currently of concern) Labs: Ethyl Glucuronide screen: 09/30/2021 - negative Urine Drug screen: 09/30/2021 - presumptive positive for benzodiazepines and THC. PEth: 09/30/2021 - in process ASSESSMENT / PLAN DISCUSSION Met with the patient and her mother at the [place] [address] [facility] [place] this morning. The patient is registered for [...] 16 or 17 and has had a [employer] Cannabis card since May 2021. Capability of [...] The patient was advised to contact her [facility] dialysis social worker office to determine if she [...] - [facility] brochure ([id number]) - Patient's Guide to [facility] ([id number]) - Information for Caregivers: Taking Care of Yourself ([id number]) - Preparing for Transplant: Body, Mind, and Spirit ([id number]) - [facility] Advance directive booklet - [facility] financial assistance resource guide - What to Expect as a Transplant Caregiver brochure (AY9655-514) - National Living Donor Assistance Center brochure - [employer] fundraising brochure - National Foundation for Transplants fundraising brochure - [facility]: 5 Ways to Connect ([id number]) PLAN -The patient will continue through the [...] Radiology Matthew Jerome 2 YTyrell M.D. [address] [place] [address] Appointment Gastroenterology and Adrianne, 2 Hepatology Yue Burciaga M.D. [address] [place] [address] Virtual Visit Transplant Matthew Jerome 2 YTyrell M.D. [address] [place] [address] [phone] Office Visit Gastroenterology and Matthew Jerome 2 Hepatology Tyrell Rodriguez M.D. [address] [place] [phone] Appointment Radiology Luischantell Matthew 2 Tyrell Rodriguez M.D. [address] [place] [phone] [facility] Cirrhos is Alcoholic (HCC) 2 Encounter Hepatology Tyrell Rodriguez M.D. [address] [place] [phone] Anesthesia Event Gastroenterology and Rl, 2 Hepatology Ervin Burgos M.D. [address] [place] [address] [phone] Surgery G[facility] ESOPHAG OGASTRODUODENOSCOPY 2 Hepatology Tyrell Rodriguez M.D. 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 Hypertension Portal (HCC) documented as of this encounter Visit Diagnoses Diagnosis Cirrhosis Alcoholic (HCC) Abnormal Liver Function Test Ascites Pretransplant Recipient Evaluation Exam Preoperative Exam Cirrhosis Alcoholic (HCC) Cirrhosis Alcoholic (HCC) Hypertension Portal (HCC) documented in this encounter Care Teams Library Historian Relationship Specialty Start Date End Date Elsewhere, Pcp PCP - General Family Medicine 03/10/20 11/30/21 [facility] hospital 08/25/21 Ervin Schroeder MD Referring Provider Family Medicine 03/24/[address] [place], [place] [phone] documented as of this encounter
--- OUTSIDE RECORDS SUMMARY | 2022-02-16 12:26 | XMS_ITS | Encounter Summary ---
:1990 Author Organization [facility] Address [address] [place] [address] Care Team Providers Name Role Phone Elsewhere, Pcp Primary Care Provider Unavailable Reason for Referral Outpatient (Routine) - Pending Review Specialty Diagnoses / Procedures Referred By Contact Refer red To Contact Migue Justice M .D. [facility] [address] [place] [phone] Referral ID Status Reason Start Date Expiration Date Visits V isits Requested Authorized [id number] Pending 10/01/2021 10/01/2022 1 1 Review Scheduling Instructions Calendar: TXP RESEARCH ROCH 10 [TXP ROCH] Floor: [place] 10a Encounter Details Date Type Department Care Team Description 10/01/2021 Orders Only [facility] Bernardo Walls for Trans[facility] and [address] [place] [address] Clinical Regeneration in [place], [place] [phone] [place] [phone] Social History Tobacco Use Types Packs/Day [...] attend jehovah's witness or Patient refused 2021 jainism services? 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 [address] [place] [phone] Appointment Gastroenterology and Adrianne, 2 Hepatology Yue Burciaga M.D. [address] [place] [address] Virtual Visit Transplant Matthew Jerome 2 Tyrell Rodriguez M.D. [address] [place] [phone] Office Visit Gastroenterology and Matthew Jerome 2 Hepatology Tyrell Rodriguez M.D. [address] [place] [phone] Appointment Radiology LuisMatthew abdul 2 Tyrell Rodriguez M.D. [address] [place] [phone] Hospital Gastroenterology and Matthew Jerome Cirrhos is Alcoholic (HCC) 2 Encounter Hepatology Tyrell Rodriguez M.D. [address] [place] [phone] Anesthesia Event Gastroenterology and Rl, 2 Hepatology Ervin Burgos M.D. [address] [place] [phone] Surgery Gastroenterology and Matthew Jerome ESOPHAG OGASTRODUODENOSCOPY 2 Hepatology Joshua RodriguezBuSmaBLilian Bedolla [address] [place] [phone] Scheduled Procedures Name Priority Associated Diagnoses Date/Time ESOPHAGOGASTRODUODENOSCOPY Cirrhosis Alc oholic (HCC) 03/20/2022 8:45 AM BUSINESS EXECUTIVE Hypertension Portal (HCC) Scheduled Referrals Name Type Priority Associated Order Schedule Diagnoses Research Study Outpatient Referral Routine Expect ed: Coordinator office 2 visit (clinic) (Approximate) , Expires: 01/01/2023 documented as of this encounter Visit Diagnoses Not on filedocumented in this encounter Care Teams General Intern Relationship Specialty Start Date End Date Elsewhere, Pcp PCP - General Family Medicine 03/10/20 11/30/21 [facility] 08/25/21 Ervin Schroeder MD Referring Provider Family Medicine 03/24/[address] [place] [address] documented as of this encounter
--- OUTSIDE RECORDS SUMMARY | 2022-02-16 12:26 | XMS_ITS | Encounter Summary ---
:1990 Author Organization [facility] Address [address] [place] [address] Care Team Providers Name Role Phone Elsewhere, Pcp Primary Care Provider Unavailable Encounter Details Date Type Department Care Team Description 09/30/2021 Lab Department of Laboratory Alec Hrenández Cirrhosis Alcoholic (HCC); Medicine and PathologySilvano M.D., M.P.H. Abnormal Liver Function Test; [place], in [address] [place] [address] Ascites; [place] [address] Pretransplant Recipient Evaluation Exam; [address] [place] [address] [place] [phone] Social History Tobacco Use Types Packs/Day Years [...] 02/10/2022 organizations such as faith groups, unions, fraRohati Systems or athletic groups, or school groups? 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 - 10/03/2021 3:32 PM CDT I reviewed the attached results. Urinalysis is negative. Staph epidermidis is likely skin contamination. documented in this encounter Plan of Treatment Upcoming Encounters Date Type Specialty Care Team Description Telemedicine Transplant 2 Appointment Radiology Matthew Jerome 2, M.B.B.S., M.D. [address] [place] [phone] Appointment Gastroenterology and Adrianne, 2 Hepatology Yue Burciaga M.D. [address] [place] [address] Virtual Visit Transplant LuisMatthew abdul 2 Tyrell Rodriguez, Lilian [address] [place] [phone] Office Visit Gastroenterology and Matthew Jerome 2 Hepatology Tyrell Rodriguez M.D. [address] [place] [phone] Appointment Radiology LuisMatthew abdul 2 Tyrell Rodriguez M.D. [address] [place] [phone] Hospital Gastroenterology and Matthew Jerome Cirrhos is Alcoholic (HCC) 2 Encounter Hepatology Tyrell Rodriguez M.D. [address] [place] [phone] Anesthesia Event Gastroenterology and Rl, 2 Hepatology Ervin Burgos M.D. [address] [place] [phone] Surgery Gastroenterology and Matthew Jerome ESOPHAG OGASTRODUODENOSCOPY 2 Hepatology Joshua RodriguezBSumaBGraeme, Lilian [address] [place] [phone] Scheduled Procedures Name Priority Associated Diagnoses Date/Time ESOPHAGOGASTRODUODENOSCOPY Cirrhosis Alc oholic (HCC) 03/20/2022 8:45 AM CUSHION MAT MAKER Hypertension Portal (HCC) documented as of this encounter Procedures Procedure Name Priority Date/Time Associated Comments Diagnosis NC OSMOLALITY ASSAY Routine 09/30/2021 8:23 AM Re [...] (ABNORMAL) Dipstick, Urine (09/30/2021 8:23 AM CDT) [facility] gist Method Time Signature Hemoglobin, Trace [...] M.P.H. LAB URINE ORDERABLES Performing Organization Address City/[facility]/ZIP [facility] Phon e Number [facility] - [address] [place], [place] [address] [facility] [place] [address] [facility] 200 [facility] Osmolality, Urine (09/30/2021 8:23 AM CDT) athologist Signature Osmolality, U 628 150 - 1150 09/30/2021 DT mOsm/kg 9:41 AM CDT Specimen Anatomical Collection Method Collection Time Receive d Time (Source) Location / / Volume Laterality Urine 09/30/2021 8:23 AM 2 8:24 CDT AM CDT Warren Hernández M.D., M.P.H. LAB URINE ORDERABLES Performing Organization Address City/[facility]/ZIP Code Phon e Number [facility] - [address] [place], [place] [address] [place] [address] [facility] 200 [facility] pH, Random, Urine (09/30/2021 8:23 AM CDT) athologist Signature pH, Random, U 5.7 4.5 - 8.0 09/30/2021 DT 9:41 AM CDT Specimen Anatomical Collection Method Collection Time Receive d Time (Source) Location / / Volume Laterality Urine 09/30/2021 8:23 AM 2 8:24 CDT AM CDT Warren Hernández M.D., M.P.H. LAB URINE ORDERABLES Performing Organization Address City/[facility]/ZIP [facility] Phon e Number [facility] - [address] [place], [place] [address] [place] [phone] [place] [address] Microscopic Manual (09/30/2021 8:23 AM CDT) athologist [...] ORDERABLES Performing Organization Address [facility] Phon e Number [facility] - [address] [place], [place] [address] [facility] [place] [address] Laboratories-[facility] [address] [facility] Ethyl Glucuronide Screen with Reflex, Urine (09/30/2021 8:23 AM CDT) [facility] Method Time Signature Ethyl Negative Cutoff: 09/30/2021 [facility] Glucuronide Scrn 500 ng/mL 11:12 AM CDT w/Reflex, U Comment: ----ADDITIONAL INFORMATION---- This test was developed and its performa nce characteristics determined by [facility] in [...] M.P.H. LAB URINE ORDERABLES Performing Organization Address City/[facility] Phon e Number [facility] [address] [place], [place] [address] SUPPORT CENTER [facility] [place] [address] Laboratory Medicine and Pathology [address] [place] (ABNORMAL) Bacterial Culture, Aerobic + Susc, Urine (09/30/2021 8:23 AM CDT) Component Value Ref Test Analysis Performed At [facility] Range Method Time Signature Urine Culture [...] e Number [facility] - [address] [place] [address] [facility] [place] [address] [facility] 200 [facility] (ABNORMAL) Drug Abuse Survey with Confirmation, Panel 9, Urine (09/30/2021 8:23 AM CDT) Component Value Ref Test Analysis Performed At [facility] Range Method Time Signature Alcohol Negative [...] 150 ng/mL 09/30/2021 11:12 AM CD T [facility] Comment: This cocaine immunoassay targets benzoyl [...] Code Phon e Number [facility] [address] [place], [place] [address] SUPPORT CENTER [facility] [place] [address] Laboratory Medicine and Pathology [address] [place] Urinalysis with Microscopic: Urine, Midstream (09/30/2021 8:23 AM CDT) [facility] Method Time Signature Source Urine, Urine, [...] MEDICAL CENTER LABORATORIES - [address] [place], [place] [address] [facility] [place] [address] Laboratories-[facility] [address] documented in this encounter Visit Diagnoses Diagnosis Cirrhosis Alcoholic (HCC) Abnormal Liver Function Test Ascites Pretransplant Recipient Evaluation Exam Preoperative Exam Cirrhosis Alcoholic (HCC) Cirrhosis Alcoholic (HCC) Hypertension Portal (HCC) documented in this encounter Care Teams Process Maintenance Technician Relationship Specialty Start Date End Date Elsewhere, Pcp PCP - General Family Medicine 03/10/20 11/30/21 [facility] [place] [facility] 08/25/21 Ervin Schroeder MD Referring Provider Family Medicine 03/24/[address] [place] [address] documented as of this encounter
--- OUTSIDE RECORDS SUMMARY | 2022-02-16 12:26 | XMS_ITS | Encounter Summary ---
:1990 Author Organization [facility] Address [address] [place] [address] Care Team Providers Name Role Phone Elsewhere, Pcp Primary Care Provider Unavailable Reason for Visit Outpatient (Routine) - Closed Specialty Diagnoses / Procedures Referred By Contact Refer red To Contact Preventive Medicine Diagnoses Cirrhosis Alcoholic (HCC) Abnormal Liver Function Test Ascites Pretransplant Recipient Evaluation Exam Preoperative Exam Warren Hernández [facility] Lilian, M.P.H. [address] [place] [address] Referral ID Status Reason Start Date Expiration Date Visits Requ ested Visits Authorized [id number] Closed 08/25/2021 08/25/2022 1 1 Encounter Details Date Type Department Care Team Description 10/01/2021 Comprehensive Visit Section of Preventive, Alicia Diggs Counseling Preventive (Primary Dx); Transportation and K, PRODUCT SAFETY MANAGER, Cirrhosis Alcoholic (HCC); Occupational Medicine C.N.P. Abnorm al Liver Function Test; in [place], [facility]; [place] Pretransplant Recipient Eval uation Exam; [address] [facility] [place] [place] [phone] Social History Tobacco Use Types Packs/Day Years [...] you attend christianity or Patient refused 2021 voodoo services? 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 [address] [place] [phone] Virtual Visit Transplant Matthew Jerome 2 Joshua RodriguezB.B.SSuma, Lilian [address] [place] [phone] Office Visit Gastroenterology and Matthew Jerome 2 Hepatology Joshua RodriguezB.B.SSuma, Lilian [address] [place] [phone] Appointment Radiology Matthew Jerome 2 Y M.B.B.SSuma, Lilian [address] [place] [phone] Hospital Gastroenterology and Matthew Jerome Cirrhos is Alcoholic (HCC) 2 Encounter Hepatology Joshua RodriguezB.B.Lilian [place] [address] [place] [phone] Anesthesia Event Gastroenterology and Rl, 2 Hepatology Ervin Burgos M.D. [address] [place] [address] Surgery Gastroenterology and Mousa, Matthew ESOPHAG OGASTRODUODENOSCOPY 2 Hepatology Tyrell Rodriguez M.D. [address] [place] [phone] Scheduled Procedures Name Priority Associated Diagnoses Date/Time ESOPHAGOGASTRODUODENOSCOPY Cirrhosis Alc oholic (HCC) 03/20/2022 8:45 AM ART CONSERVATOR Hypertension Portal (HCC) documented as of this encounter Visit Diagnoses Diagnosis Counseling Preventive - Primary Cirrhosis Alcoholic (HCC) Abnormal Liver Function Test Ascites Pretransplant Recipient Evaluation Exam Preoperative Exam Cirrhosis Alcoholic (HCC) Cirrhosis Alcoholic (HCC) Hypertension Portal (HCC) documented in this encounter Care Teams Manager Online Relationship Specialty Start Date End Date Elsewhere, Pcp PCP - General Family Medicine 03/10/20 11/30/21 [facility] [place] [facility] 08/25/21 Ervin Schroeder MD Referring Provider Family Medicine 03/24/[address] [place] [address] documented as of this encounter
--- OUTSIDE RECORDS SUMMARY | 2022-02-16 12:26 | XMS_ITS | Encounter Summary ---
:1990 Author Organization [facility] Address [address] [place] [address] Care Team Providers Name Role Phone Elsewhere, Pcp Primary Care Provider Unavailable Reason for Visit Transplant (Routine) - Closed Specialty Diagnoses / Procedures Referred By Contact Refer red To Contact Transplant Surgery / Diagnoses Cirrhosis Alcoholic (HCC) Abnormal Liver Function Test Ascites Pretransplant Recipient Evaluation Exam Preoperative Exam Warren Hernández, [facility] Transplant Lilian, M.P.H. [address] [place] [address] Referral ID Status Reason Start Date Expiration Date Visits Requ ested Visits Authorized [id number] Closed 08/25/2021 08/25/2022 1 1 Encounter Details Date Type Department Care Team Description 09/30/2021 Comprehensive Visit Warren Middleton M.D., M.P.H. [address] [place] [address] Cirrhosis Alcoholic (HCC); [facility] Milagros Navarro M.S., RDN, LD [address] [place] [phone] Abnormal Liver Function Test; Transplantation and Ascites; Clinical Regeneration Pretra nsplant Recipient Evaluation Exam; in [place], [facility] E xam [place] [address] [place] [address] Social History Tobacco Use Types Packs/Day Years [...] you attend shinto or Patient refused 2021 faith services? 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 HS snack: lemon/[place], apple, a few crackers or protein bar [...] Appointment Radiology QueenieNewar 2 Tyrell Rodriguez, Lilian [address] [place] [phone] Appointment Gastroenterology and Adrianne, 2 Hepatology Yue Burciaga M.D. [address] [place] [phone] Virtual Visit Transplant LuisNew abdular 2 Tyrell Rodriguez M.D. [address] [place] [phone] Office Visit Gastroenterology and LuisNew abdular 2 Hepatology Tyrell Rodriguez M.D. [address] [place] [phone] Appointment Radiology Matthew Jerome 2 YTyrell M.D. [address] [place] [address] [phone] Hospital Gastroenterology and Matthew Jerome Cirrhos is Alcoholic (HCC) 2 Encounter Hepatology Tyrell Rodriguez M.D. [address] [place] [phone] Anesthesia Event Gastroenterology and Rl, 2 Hepatology Ervin Burogs M.D. [address] [place] [address] [phone] Surgery Gastroenterology and Queenie Matthew ESOPHAG OGASTRODUODENOSCOPY 2 Hepatology Tyrell Rodriguez M.D. [address] [place] [address] [phone] Scheduled Procedures Name Priority Associated Diagnoses Date/Time ESOPHAGOGASTRODUODENOSCOPY Cirrhosis Alc oholic (HCC) 03/20/2022 8:45 AM AIR TRAFFIC CONTROL EQUIPMENT REPAIRER Hypertension Portal (HCC) documented as of this encounter Visit Diagnoses Diagnosis Cirrhosis Alcoholic (HCC) Abnormal Liver Function Test Ascites Pretransplant Recipient Evaluation Exam Preoperative Exam Cirrhosis Alcoholic (HCC) Cirrhosis Alcoholic (HCC) Hypertension Portal (HCC) documented in this encounter Care Teams Vfx Artist Relationship Specialty Start Date End Date Elsewhere, Pcp PCP - General Family Medicine 03/10/20 11/30/21 [facility] [place] lab 08/25/21 Ervin Schroeder MD Referring Provider Family Medicine 03/24/[address] [place] [address] [phone] documented as of this encounter
--- OUTSIDE RECORDS SUMMARY | 2022-02-16 12:26 | XMS_ITS | Encounter Summary ---
:1990 Author Organization [facility] Address [address] [place] [address] Care Team Providers Name Role Phone Elsewhere, Pcp Primary Care Provider Unavailable Reason for Referral Outpatient (Routine) - Closed Specialty Diagnoses / Procedures Referred By Contact Refer brianda To Contact Nicotine Dependence Jessy Crain M.A., C.T.T.S. [address] [place] [address] Referral ID Status Reason Start Date Expiration Date Visits Requ ested Visits Authorized [id number] Closed 10/01/2021 10/01/2022 1 1 Scheduling Instructions [...] Referred By Contact Tabatha lamar To Contact Pulmonary Medicine / Diagnoses Cirrhosis Alcoholic (HCC) Abnormal Liver Function Test Ascites Pretransplant Recipient Evaluation Exam Preoperative Exam Warren Hernández, [facility] Nicotine Dependence Lilian, M.P.H. [address] [place] [address] Referral ID Status Reason Start Date Expiration Date Visits Requ ested Visits Authorized [id number] Closed 08/25/2021 08/25/2022 1 1 Encounter Details Date Type Department Care Team Description 10/01/2021 Clinical Support Department of Elier Hernández M.D., M.P.H. [address] [place] [address] Nicotine Dependence Cigarettes (Primary Dx); Nicotine Jessy Crain M.A., C.T.T.S. [address] [place] [phone] Cirrhosis Alcoholic (HCC); Dependence, Gonda Abnormal L iver Function Test; Building, in Ascites; [place], Pretransplant R ecipient Evaluation Exam; [place] Preoperative Exam [address] [place] [phone] Social History Tobacco Use Types Packs/Day Years [...] you attend judaism or Patient refused 2021 judaism services? 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 - 10/01/2021 10:00 AM CDT SUBJECTIVE CHIEF COMPLAINT / REASON FOR VISIT Tobacco use disorder HISTORY OF PRESENT ILLNESS Catia Carias is a 31 y.o. female who was seen at [place] [address] and is being evaluated for Tobacco Use [...] provided the patient with educational materials and [facility] contact information. We have scheduled [...] Appointment Radiology LuisNew abdular 2 YTyrell M.D. [address] [place] [address] [phone] Appointment Gastroenterology demian Silver 2 Hepatology Yue Burciaga M.D. [address] [place] [phone] Virtual Visit Transplant LuisMatthew abdul 2 YTyrell M.D. [address] [place] [address] [phone] Office Visit Gastroenterology and LuisMatthew abdul 2 Hepatology Tyrell Rodriguez M.D. [address] [place] [address] [phone] Appointment Radiology LuisMatthew abdul 2 YTyrell M.D. [address] [place] [address] [phone] Hospital Gastroenterology and Matthew Jeorme Cirrhos is Alcoholic (HCC) 2 Encounter Hepatology Tyrell Rodriguez M.D. [address] [place] [address] [phone] Anesthesia Event Gastroenterology demian Shine, 2 Hepatology Ervin Burgos M.D. [address] [place] [address] [phone] Surgery Gastroenterology and Mousa, Matthew ESOPHAG OGASTRODUODENOSCOPY 2 Hepatology Tyrell Rodriguez M.D. [address] [place] [phone] Scheduled Procedures Name Priority Associated Diagnoses Date/Time ESOPHAGOGASTRODUODENOSCOPY Cirrhosis Alc oholic (HCC) 03/20/2022 8:45 AM RAG SORTER AND CUTTER Hypertension Portal (HCC) Scheduled Referrals Name Type [...] (HCC) documented in this encounter Care Teams Car Groomer Relationship Specialty Start Date End Date Elsewhere, Pcp PCP - General Family Medicine 03/10/20 11/30/21 [facility] [place] lab 08/25/21 Ervin Schroeder MD Referring Provider Family Medicine 03/24/[address] [place] [phone] documented as of this encounter
--- OUTSIDE RECORDS SUMMARY | 2022-02-16 12:26 | XMS_ITS | Encounter Summary ---
:1990 Author Organization [facility] Address [address] [place] [address] Care Team Providers Name Role Phone Elsewhere, Pcp Primary Care Provider Unavailable Reason for Visit Reason Comments Leg Pain Encounter Details Date Type Department Care Team Description 09/28/2021 Nurse Triage Department of Naila Lundy R.N. Leg Pain Medicine, [facility], in [address] [place], [place] [address] [place] [phone] [place] [address] [phone] Social History Tobacco Use Types Packs/Day Years [...] you attend judaism or Patient refused 2021 christian services? 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 documented in this encounter Plan of Treatment Upcoming Encounters Date Type Specialty Care Team Description Telemedicine Transplant 2 Appointment Radiology Matthew Jerome 2 Vik RodriguezBGraeme, Lilian [address] [place] [address] [phone] Appointment Gastroenterology demian Silver 2 Hepatology Yue Burciaga M.D. [address] [place] [phone] Virtual Visit Transplant Matthew Jerome 2 Tyrell Rodriguez M.D. [address] [place] [address] [phone] Office Visit Gastroenterology and Matthew Jerome 2 Hepatology Joshua RodriguezBSumaBLilian Bedolla [address] [place] [address] [phone] Appointment Radiology Matthew Jerome 2 YJoshuaB.BLilian Bedolla [address] [place] [address] [phone] Hospital Gastroenterology and Queenie Matthew Cirrhos is Alcoholic (HCC) 2 Encounter Hepatology Joshua RodriguezB.B.Lilian Stockton [address] [place] [phone] Anesthesia Event Gastroenterology and Rl, 2 Hepatology Ervin Burgos M.D. [address] [place] [phone] Surgery Gastroenterology and aMtthew Jerome ESOPHAG OGASTRODUODENOSCOPY 2 Hepatology Y, M.B.B.S., M.D. [address] [place] [phone] Scheduled Procedures Name Priority Associated Diagnoses Date/Time ESOPHAGOGASTRODUODENOSCOPY Cirrhosis Alc oholic (HCC) 03/20/2022 8:45 AM HAND BINDER CUTTER Hypertension Portal (HCC) documented as of this encounter Visit Diagnoses Not on filedocumented in this encounter Care Teams Cap Inspector Relationship Specialty Start Date End Date Elsewhere, Pcp PCP - General Family Medicine 03/10/20 11/30/21 [facility] [place] lab 08/25/21 Ervin Schroeder MD Referring Provider Family Medicine 03/24/[address] [place] [address] documented as of this encounter
--- OUTSIDE RECORDS SUMMARY | 2022-02-16 12:26 | XMS_ITS | Encounter Summary ---
:1990 Author Organization [facility] Address [address] [place] [address] Care Team Providers Name Role Phone Elsewhere, Pcp Primary Care Provider Unavailable Reason for Visit Reason Onset Date Comments [facility] Financial 09/26/2021 Encounter Details Date Type Department Care Team Description 09/26/2021 Clinical Communication Ramirez Amador, [facility] [place], Transplantation and C.M.A. 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 - 09/26/2021 10:47 AM CDT Recipient Pre-Transplant Review Document: Organ: Kidney ____ Liver _X___ Heart ____ Lung ____ Pancreas ____ BMT ____ Insurance Carrier: [facility] [place] 2B Demographic Information: __X__ Confirmed information is [...] coordination of benefits: deductible, co-insurance, co-pay, or leu-na-ixchlz maximum. __X__ Patient understands that this is [...] surgery. _X___ Handed patient Financial Assistance Policy. ([id number]) PATIENT EDUCATION Education Material: __X__ Provided patient with an educational guide (Planning for Your Transplant: A Financial Guide SR85143) to assist in outlining financial responsibilities related [...] _X___ Advised recipient to notify [facility] with any insurance updates or changes; failure to do so may impede transplant eligibility. __X__ Discussed financial concerns related to ability to pay for services and post-transplant care. Including, Financial Assistance policy if financial hardship was identified. __X__ Provided Transplant Financial business card with our contact phone number of [phone] if patient were to have additional questions. __X__ Annual benefit review will be done to verify active coverage with patient's insurance going forward. PATIENT TEACH BACK X [facility] X May have travel and lodging funds available through [facility] X Cost of transplant X Reviewed to call Transplant Financial Coordinators with questions documented in this encounter Plan of Treatment Upcoming Encounters Date Type Specialty Care Team Description Telemedicine Transplant 2 Appointment Radiology Matthew Jerome 2 YTyrell, Lilian [address] [place] [phone] Appointment Gastroenterology demian Silver 2 Hepatology Yue Burciaga M.D. [address] [place] [phone] Virtual Visit Transplant Matthew Jerome 2 YTyrell, Lilian [address] [place] [phone] Office Visit Gastroenterology and Matthew Jerome 2 Hepatology Tyrell Rodriguez M.D. [address] [place] [phone] Appointment Radiology LuisMatthew abdul 2 YTyrell M.D. [address] [place] [phone] [facility] Gastroenterology and Matthew Jerome Cirrhos is Alcoholic (HCC) 2 Encounter Hepatology Tyrell Rodriguez M.D. [address] [place] [phone] Anesthesia Event Gastroenterology and Rl, 2 Hepatology Ervin Burgos M.D. [address] [place] [phone] Surgery Gastroenterology and Matthew Jerome ESOPHAG OGASTRODUODENOSCOPY 2 Hepatology Joshua RodriguezBSumaBGraeme, Lilian [address] [place] [phone] Scheduled Procedures Name Priority Associated Diagnoses Date/Time ESOPHAGOGASTRODUODENOSCOPY Cirrhosis Alc oholic (HCC) 03/20/2022 8:45 AM TOP INVENTORY CONTROL EXECUTIVE Hypertension Portal (HCC) documented as of this encounter Visit Diagnoses Not on filedocumented in this encounter Care Teams Medical Record Librarians Teacher Relationship Specialty Start Date End Date Elsewhere, Pcp PCP - General Family Medicine 03/10/20 11/30/21 [facility] 08/25/21 Ervin Schroeder MD Referring Provider Family Medicine 03/24/[address] [place] [address] documented as of this encounter
--- OUTSIDE RECORDS SUMMARY | 2022-02-16 12:26 | XMS_ITS | Encounter Summary ---
:1990 Author Organization [facility] Address [address] [place] [address] Care Team Providers Name Role Phone Elsewhere, Pcp Primary Care Provider Unavailable Encounter Details Date Type Department Care Team Description 10/02/2021 Orders Only Jairo Gamino am [facility] 200 1 [facility] Exam (Primary Dx) and Clinical Regeneration [place], [place] in [facility] [phone] [address] [place] [address] Social History Tobacco Use Types Packs/Day [...] you attend episcopalian or Patient refused 2021 religion services? 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 [address] [place] [phone] Appointment Gastroenterology and Adrianne, 2 Hepatology Yue Burciaga M.D. [address] [place] [phone] Virtual Visit Transplant Matthew Jerome 2 YTyrell M.D. [address] [place] [address] [phone] Office Visit Gastroenterology and Matthew Jerome 2 Hepatology Tyrell Rodriguez M.D. [address] [place] [phone] Appointment Radiology Matthew Jerome 2 YTyrell, Lilian [address] [place] [phone] Hospital Gastroenterology and VaMatthew abdul Cirrhos is Alcoholic (HCC) 2 Encounter Hepatology Tyrell Rodriguez, Lilian [address] [place] [address] [phone] Anesthesia Event Gastroenterology and [facility], 2 Hepatology Ervin Burgos M.D. [address] [place] [address] [phone] Surgery Gastroenterology and [place] Matthew ESOPHAG OGASTRODUODENOSCOPY 2 Hepatology Vik RodriguezBGraeme, Lilian [address] [place] [address] [phone] Scheduled Procedures Name Priority Associated Diagnoses Date/Time ESOPHAGOGASTRODUODENOSCOPY Cirrhosis Alc oholic (HCC) 03/20/2022 8:45 AM CUSTOMER SPECIALIST Hypertension Portal (HCC) documented as of this encounter Visit Diagnoses Diagnosis Clinical Research Exam - Primary Cirrhosis Alcoholic (HCC) Cirrhosis Alcoholic (HCC) Hypertension Portal (HCC) documented in this encounter Care Teams Hospital Receptionist Relationship Specialty Start Date End Date Elsewhere, Pcp PCP - General Family Medicine 03/10/20 11/30/21 [facility] [place] lab 08/25/21 Ervin Schroeder MD Referring Provider Family Medicine 03/24/[address] [place] [phone] documented as of this encounter
--- OUTSIDE RECORDS SUMMARY | 2022-02-16 12:26 | XMS_ITS | Encounter Summary ---
:1990 Author Organization [facility] Address [address] [place] [address] Care Team Providers Name Role Phone Elsewhere, Pcp Primary Care Provider Unavailable Reason for Visit Transplant (Routine) - Closed Specialty Diagnoses / Procedures Referred By Contact Refer red To Contact Transplant Surgery / Diagnoses Cirrhosis Alcoholic (HCC) Abnormal Liver Function Test Ascites Pretransplant Recipient Evaluation Exam Preoperative Exam Warren Hernández, [facility] Transplant M.D., M.P.H. [address] [place] [address] Referral ID Status Reason Start Date Expiration Date Visits Requ ested Visits Authorized [id number] Closed 08/25/2021 08/25/2022 1 1 Encounter Details Date Type Department Care Team Description 10/02/2021 Comprehensive Visit Ramirez Barajas, Cirrhosis Alcoholic (HCC); Center [facility] Janett, Abnormal Liver Function Test; Transplantation and M.Jeri, Ph.D. Ascites; Clinical Regeneration [address] Pretra nsplant Recipient Evaluation Exam; in [facility] Preoperative Exam [address] [facility], [facility] [phone] Social History Tobacco Use Types Packs/Day [...] you attend adventism or Patient refused 2021 restorationism services? 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 - 10/02/2021 1:00 PM CDT SUBJECTIVE HISTORY OF PRESENT ILLNESS Ms. Carias is a 31-year-old woman from [place], [place], with alcohol- associated cirrhosis. Her disease was diagnosed in fall when she fell ill and was subsequently hospitalized. It appears that several months prior to that, she started to feel more fatigued and perhaps developed encephalopathy. She quit working. She also noticed that she was getting jaundiced in March of 2021. She was hospitalized in [place] and diagnosed with cirrhosis. This is secondary [...] Dinh M.D., Ph.D. CT CT Job ID: [id number]/ documented in this encounter Plan of Treatment Upcoming Encounters Date Type Specialty Care Team Description Telemedicine Transplant 2 Appointment Radiology Matthew Jerome 2 YJoshuaBSumaBGraeme, Lilian [address] [place] [phone] Appointment Gastroenterology and Adrianne, 2 Hepatology Yue Burciaga M.D. [address] [place] [phone] Virtual Visit Transplant LuisNew abdular 2 YJoshuaBSumaBLilian Bedolla [address] [place] [phone] Office Visit Gastroenterology and [place] Jeromear 2 Hepatology Tyrell Rodriguez M.D. [address] [place] [phone] Appointment Radiology Luischantell Matthew 2 YJoshuaB.B.Lilian Stockton [address] [place] [phone] [facility] Gastroenterology and Queenie Matthew Cirrhos is Alcoholic (HCC) 2 Encounter Hepatology Joshua RodriguezBSumaBLilian Bedolla [address] [place] [phone] Anesthesia Event Gastroenterology and Rl, 2 Hepatology Ervin Burgos M.D. [address] [place] [phone] Surgery Gastroenterology and Matthew Jerome ESOPHAG OGASTRODUODENOSCOPY 2 Hepatology Joshua RodriguezB.B.Kath, Lilian [address] [place] [phone] Scheduled Procedures Name Priority Associated Diagnoses Date/Time ESOPHAGOGASTRODUODENOSCOPY Cirrhosis Alc oholic (HCC) 03/20/2022 8:45 AM ENVIRONMENTAL TECHNICAL OFFICER Hypertension Portal (HCC) documented as of this encounter Visit Diagnoses Diagnosis Cirrhosis Alcoholic (HCC) Abnormal Liver Function Test Ascites Pretransplant Recipient Evaluation Exam Preoperative Exam Cirrhosis Alcoholic (HCC) Cirrhosis Alcoholic (HCC) Hypertension Portal (HCC) documented in this encounter Care Teams Assurance Assistant Relationship Specialty Start Date End Date Elsewhere, Pcp PCP - General Family Medicine 03/10/20 11/30/21 [facility] [place] lab 08/25/21 Ervin Schroeder MD Referring Provider Family Medicine 03/24/[address] [place] [address] documented as of this encounter
--- OUTSIDE RECORDS SUMMARY | 2022-02-16 12:26 | XMS_ITS | Encounter Summary ---
:1990 Author Organization [facility] Address [address] [place] [address] Care Team Providers Name Role Phone Elsewhere, Pcp Primary Care Provider Unavailable Reason for Visit Reason Comments Med Management Outpatient (Routine) - Closed Specialty Diagnoses / Procedures Referred By Contact Refer red To Contact Pharmacy Diagnoses Cirrhosis Alcoholic (HCC) Abnormal Liver Function Test Ascites Pretransplant Recipient Evaluation Exam Preoperative Exam Warren Hernández M.D., [facility] [address] [place] [phone] Referral ID Status Reason Start Date Expiration Date Visits Requ ested Visits Authorized [id number] Closed 08/25/2021 08/25/2022 1 1 Encounter Details Date Type Department Care Team Description 09/30/2021 Office Visit Warren Carter M.D., M.P.H. [address] [place] [address] Cirrhosis Alcoholic (HCC); [facility] Evon Joseph, Pharm.D., R.Ph. [address] [place] [phone] Abnormal Liver Function Test; Transplantation and Ascites; Clinical Regeneration in Pre transplant Recipient Evaluation Exam; [place], [place] Preoperative Exam [address] [place] [address] Social History Tobacco Use Types Packs/Day [...] you attend methodist or Patient refused 2021 evangelical services? 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 female who is seen today by [facility] Pharmacist. The patient presents today for a [facility] Pharmacist transplant evaluation; consideration for transplant [...] future, as smoking hurts her lungs.[employer] [place] registration #[id number]. Insomnia medications: She also has hydroxyzine 25 [...] 1 mgdaily, thiamine 100 mg daily, ergocalciferol 43841 IU weekly on Wednesday and vitamin A 22757 units three days per week. Contraception medications: [...] 1 time per month. The patient uses [employer] locally. Does the patient know what medications [...] Radiology Matthew Jerome 2 YTyrell, Lilian [address] [place] [phone] Appointment Gastroenterology and Adrianne, 2 Hepatology Yue Burciaga M.D. [address] [place] [phone] Virtual Visit Transplant Matthew Jerome 2 YTyrell M.D. [address] [place] [phone] Office Visit Gastroenterology and Matthew Jerome 2 Hepatology Tyrell Rodriguez M.D. [address] [place] [phone] Appointment Radiology LuisMatthew abdul 2 YTyrell M.D. [address] [place] [phone] Hospital Gastroenterology and Inchantell Matthew Cirrhos is Alcoholic (HCC) 2 Encounter Hepatology Tyrell Rodriguez M.D. [address] [place] [phone] Anesthesia Event Gastroenterology and Rl, 2 Hepatology Ervin Burgos M.D. [address] [place] [address] [phone] Surgery Gastroenterology and Queenie Matthew ESOPHAG OGASTRODUODENOSCOPY 2 Hepatology Tyrell Rodriguez M.D. [address] [place] [phone] Scheduled Procedures Name Priority Associated Diagnoses Date/Time ESOPHAGOGASTRODUODENOSCOPY Cirrhosis Alc oholic (HCC) 03/20/2022 8:45 AM CHIEF SERVICE OBSERVER Hypertension Portal (HCC) documented as of this encounter Visit Diagnoses Diagnosis Cirrhosis Alcoholic (HCC) Abnormal Liver Function Test Ascites Pretransplant Recipient Evaluation Exam Preoperative Exam Cirrhosis Alcoholic (HCC) Cirrhosis Alcoholic (HCC) Hypertension Portal (HCC) documented in this encounter Care Teams [facility] Consultant Relationship Specialty Start Date End Date Elsewhere, Pcp PCP - General Family Medicine 03/10/20 11/30/21 [facility]- [place] lab 08/25/21 Ervin Schroeder MD Referring Provider Family Medicine 03/24/211979 [address] [place] [address] documented as of this encounter
--- OUTSIDE RECORDS SUMMARY | 2022-02-16 12:26 | XMS_ITS | Encounter Summary ---
:1990 Author Organization [facility] Address [address] [place] [address] Care Team Providers Name Role Phone Elsewhere, Pcp Primary Care Provider Unavailable Reason for Referral Physical Therapy (Routine) - Pending Review Specialty Diagnoses / Procedures Referred By Contact Refer red To Contact Diagnoses Edema Leg Matthew Jerome M.B.BSumaSSuma, [facility] Region Procedures PT Ongoing treatment M.DSuma [address] [place] [phone] Referral ID Status Reason Start Date Expiration Date Visits V isits Requested Authorized [id number] Pending 09/24/2021 09/24/2022 99 99 Review Reason for Visit Physical Therapy (Routine) - Closed Specialty Diagnoses / Procedures Referred By Contact Refer red To Contact Diagnoses Edema Leg Matthew Jerome M.BSumaBSumaSSuma, [facility] Region Procedures PT Evaluate and treat M.DSuma [address] [place] [phone] Referral ID Status Reason Start Date Expiration Date Visits Requ ested Visits Authorized [id number] Closed 09/16/2021 09/16/2022 1 1 Encounter Details Date Type Department Care Team Description 09/24/2021 Comprehensive Visit Department of Physical Matthew Jerome M.B.B.S., Lilian [address] [place] [phone] Edema Leg Medicine and Jessy Haywood M.S., P.T., CLT-JAKI [address] [place] [phone] Rehabilitation in [place], [place] [address] [place] [phone] Social History Tobacco Use Types Packs/Day [...] you attend sabianism or Patient refused 2021 quaker services? 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 MJules [address] [place] [phone] Rehab Diagnosis: 1. Edema Leg Reason for Referral: Insurance: Payor: [employer] [place] CARE / Plan: [employer] HMO / Product Type: MedicaidHMO / Total [...] patient education handout A Guide to Lymphedema (PE7511), as well as signs and symptoms of cellulitis utilizing patient education handout Cellulitis (UP3976). - Instructed exercises to reduce lymphedema. - [...] Appointment Radiology LuisNew abdular 2 YTyrell M.D. [address] [place] [phone] Appointment Gastroenterology and Adrianne, 2 Hepatology Yue Burciaga M.D. [address] [place] [phone] Virtual Visit Transplant LuisMatthew abdul 2 YTyrell M.D. [address] [place] [phone] Office Visit Gastroenterology and Matthew Jerome 2 Hepatology YTyrell M.D. [address] [place] [phone] Appointment Radiology LuisNew abdular 2 YTyrell M.D. [address] [place] [phone] Hospital Gastroenterology and LuisMatthew abdul Cirrhos is Alcoholic (HCC) 2 Encounter Hepatology Tyrell Rodriguez M.D. [address] [place] [phone] Anesthesia Event Gastroenterology and Rl, 2 Hepatology Ervin Burgos M.D. [address] [place] [phone] Surgery Gastroenterology and Mousa, Matthew ESOPHAG OGASTRODUODENOSCOPY 2 Hepatology Tyrell Rodriguez M.D. [address] [place] [phone] Scheduled Procedures Name Priority Associated Diagnoses Date/Time ESOPHAGOGASTRODUODENOSCOPY Cirrhosis Alc oholic (HCC) 03/20/2022 8:45 AM WATER PURIFIER OPERATOR Hypertension Portal (HCC) documented as of this encounter Visit Diagnoses Diagnosis Edema Leg Cirrhosis Alcoholic (HCC) Cirrhosis Alcoholic (HCC) Hypertension Portal (HCC) documented in this encounter Care Teams District Court Judge Relationship Specialty Start Date End Date Elsewhere, Pcp PCP - General Family Medicine 03/10/20 11/30/21 [facility]- [place] lab 08/25/21 Ervin Schroeder MD Referring Provider Family Medicine 03/24/[address] [place] [address] documented as of this encounter
--- OUTSIDE RECORDS SUMMARY | 2022-02-16 12:26 | XMS_ITS | Encounter Summary ---
:1990 Author Organization [facility] Address [address] [place] [address] Care Team Providers Name Role Phone Elsewhere, Pcp Primary Care Provider Unavailable Reason for Visit Reason Comments [facility] MED REQUEST Encounter Details Date Type Department Care Team Description 10/01/2021 Clinical Communication Department of KACY Crain MED REQUEST Nicotine Jessy Gannon M.A., [place], C.T.T.S. [facility], [address] [place] [address] in [facility] [phone] [place] [address] [place], [place] (Work) [phone] Social History Tobacco Use Types Packs/Day Years [...] you attend orthodoxy or Patient refused 2021 restoration services? Do you belong to any clubs or No 02/10/2022 organizations such as orthodoxy groups, unions, [employer] or athletic groups, or school groups? 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 - 10/01/2021 12:13 PM CDT 2 mg MINI lozenges with refills, flavored [facility] in [place] documented in this encounter Plan of Treatment Upcoming Encounters Date Type Specialty Care Team Description Telemedicine Transplant 2 Appointment Radiology Matthew Jerome 2 YTyrell, MJules [address] [place] [phone] Appointment Gastroenterology and Adrianne, 2 Hepatology Yue Burciaga M.D. [address] [place] [phone] Virtual Visit Transplant Matthew Jerome 2 Tyrell Rodriguez M.D. [address] [place] [phone] Office Visit Gastroenterology and Matthew Jerome 2 Hepatology Joshua RodriguezBSumaBLilian Bedolla [address] [place] [phone] Appointment Radiology LuisMatthew abdul 2 Joshua RodriguezBSumaBLilian Bedolla [address] [place] [phone] Hospital Gastroenterology and Matthew Jerome Cirrhos is Alcoholic (HCC) 2 Encounter Hepatology Joshua RodriguezBSumaBLilian Bedolla [address] [place] [phone] Anesthesia Event Gastroenterology and Rl, 2 Hepatology Ervin Burgos M.D. [address] [place] [phone] Surgery Gastroenterology and Matthew Jerome ESOPHAG OGASTRODUODENOSCOPY 2 Hepatology Joshua RodriguezB.B.Kath, Lilian [address] [place] [phone] Scheduled Procedures Name Priority Associated Diagnoses Date/Time ESOPHAGOGASTRODUODENOSCOPY Cirrhosis Alc oholic (HCC) 03/20/2022 8:45 AM AGRICULTURAL CHEMIST Hypertension Portal (HCC) documented as of this encounter Visit Diagnoses Not on filedocumented in this encounter Care Teams Shaper Setter Relationship Specialty Start Date End Date Elsewhere, Pcp PCP - General Family Medicine 03/10/20 11/30/21 [facility]- [facility] 08/25/21 Ervin Schroeder MD Referring Provider Family Medicine 03/24/[address] [place] [address] documented as of this encounter
--- OUTSIDE RECORDS SUMMARY | 2022-02-16 12:27 | XMS_ITS | Encounter Summary ---
:1990 Author Organization [facility] Address [address] [place] [address] Care Team Providers Name Role Phone Elsewhere, Pcp Primary Care Provider Unavailable Reason for Visit Reason Comments Hepatobiliary Encounter Details Date Type Department Care Team Description 09/19/2021 Clinical Communication Division of Edgar, Hepat obiliary Gastroenterology in [place], [place] Lilian, M.P.H. [address] [facility] [address] [place] [address] [place], [place] [phone] Social History Tobacco Use Types Packs/Day Years [...] you attend mormon or Patient refused 2021 methodist services? 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 - 09/22/2021 9:55 AM CDT SUBJECTIVE CHIEF COMPLAINT / REASON FOR CALL Hepatobiliary, CT abd, anxiety ASSESSMENT nurse phoned patient to discuss preference for CT abd at [place]. She was prescribed Ativan 1 mg to [...] is away today; [facility] PLAN Anxiety related to claustrophobia related to CT abd scheduled for 14:45 today at [place]. Disposition/Recommendation: notified provider and awaiting recommendations. Information/Education: patient/caller able to teach back. Caller agreeable to plan of care: yes. The following references were used: nursing clinical judgement. 10:30 Addendum: Patient informed that [facility] (per Dr. Ramirez Driscoll) says she has not been seen here in [place] yet so does not feel comfortable prescribing a controlled substance for a procedure that usually is not performed with much sedation. She should contact [facility] or her local PCPif she seeks [...] she had called and discussed this with [facility] GI Department. Millwright Instructor also explained that changed of sedation type may result in a change of date/time of CT scan and she likely would not be able to still have CT done today in [place] with a change of sedation type from oral Ativan. Patient expressed she would maybe be willing to try the CT scan as ordered. She will call and follow up with [facility] GI. documented in this encounter Plan of Treatment Upcoming Encounters Date Type Specialty Care Team Description Telemedicine Transplant 2 Appointment Radiology Matthew Jerome 2 YTyrell M.D. [address] [place] [phone] Appointment Gastroenterology and Adrianne, 2 Hepatology Yue Burciaga M.D. [address] [place] [phone] Virtual Visit Transplant Matthew Jerome 2 YTyrell M.D. [address] [place] [phone] Office Visit Gastroenterology and [facility] 2 Hepatology Tyrell Rodriguez M.D. [address] [place] [phone] Appointment Radiology Nvchantell Matthew 2 YTyrell M.D. [address] [place] [phone] [facility] Gastroenterology and [facility] Cirrhos is Alcoholic (HCC) 2 Encounter Hepatology Tyrell Rodriguez M.D. [address] [place] [phone] Anesthesia Event Gastroenterology and Rl, 2 Hepatology Ervin Burgos M.D. [address] [place] [phone] Surgery Gastroenterology and [facility] ESOPHAG OGASTRODUODENOSCOPY 2 Hepatology Tyrell Rodriguez M.D. [address] [place] [phone] Scheduled Procedures Name Priority Associated Diagnoses Date/Time ESOPHAGOGASTRODUODENOSCOPY Cirrhosis Alc oholic (HCC) 03/20/2022 8:45 AM CHILDREN'S MINISTER Hypertension Portal (HCC) documented as of this encounter Visit Diagnoses Diagnosis Anxiety - Primary Personal History Of Failed Moderate Jo tion Cirrhosis Alcoholic (HCC) Cirrhosis Alcoholic (HCC) Hypertension Portal (HCC) documented in this encounter Care Teams General Matcher Relationship Specialty Start Date End Date Elsewhere, Pcp PCP - General Family Medicine 03/10/20 11/30/21 [facility]- [facility] 08/25/21 Ervin Schroeder MD Referring Provider Family Medicine 03/24/[address] [place] [address] documented as of this encounter
--- OUTSIDE RECORDS SUMMARY | 2022-02-16 12:27 | XMS_ITS | Encounter Summary ---
:1990 Author Organization [facility] Address [address] [place] [address] Care Team Providers Name Role Phone Elsewhere, Pcp Primary Care Provider Unavailable Encounter Details Date Type Department Care Team Description 09/01/2021 Clinical Communication Department of Matthew Jerome Gastroenterology in [place]. [address] [place] [phone] Social History Tobacco Use Types Packs/Day Years [...] testing until after 20 days for her. [place] is wondering if there is a day in which you would see this patient after they have all the testing. documented in this encounter Plan of Treatment Upcoming Encounters Date Type Specialty Care Team Description Telemedicine Transplant 2 Appointment Radiology Matthew Jerome 2 YTyrell, Lilian [address] [place] [address] Appointment Gastroenterology and Adrianne, 2 Hepatology Yue Burciaga M.D. [address] [place] [address] [place] [phone] Virtual Visit Transplant Matthew Jerome 2 Tyrell Rodriguez, Lilian [address] [place] [phone] Office Visit Gastroenterology and Matthew Jerome 2 Hepatology Tyrell Rodriguez M.D. [address] [place] [phone] Appointment Radiology LuisMatthew abdul 2 Tyrell Rodriguez M.D. [address] [place] [phone] [facility] Gastroenterology and Matthew Jerome Cirrhos is Alcoholic (HCC) 2 Encounter Hepatology Tyrell Rodriguez, Lilian [address] [place] [phone] Anesthesia Event Gastroenterology and Rl, 2 Hepatology Ervin Burgos M.D. [address] [place] [phone] Surgery Gastroenterology and Matthew Jerome ESOPHAG OGASTRODUODENOSCOPY 2 Hepatology Vik RodriguezBGraeme, Lilian [address] [place] [phone] Scheduled Procedures Name Priority Associated Diagnoses Date/Time ESOPHAGOGASTRODUODENOSCOPY Cirrhosis Alc oholic (HCC) 03/20/2022 8:45 AM LENS MOLD SETTER Hypertension Portal (HCC) documented as of this encounter Visit Diagnoses Not on filedocumented in this encounter Additional Health Concerns Infection Onset Date Last Indicated Resolved Time COVID19 08/29/2021 08/29/2021 09/18/2021 8:31 AM CDT documented as of this encounter Care Teams Shipmaster Relationship Specialty Start Date End Date Elsewhere, Pcp PCP - General Family Medicine 03/10/20 11/30/21 [facility]- [place] lab 08/25/21 Ervin Schroeder MD Referring Provider Family Medicine 03/24/[address] [place] [address] documented as of this encounter
--- OUTSIDE RECORDS SUMMARY | 2022-02-16 12:27 | XMS_ITS | Encounter Summary ---
:1990 Author Organization [facility] Address [address] [place] [address] Care Team Providers Name Role Phone Elsewhere, Pcp Primary Care Provider Unavailable Reason for Referral MRI/CAT/PET Scan (Routine) - Closed Specialty Diagnoses / Procedures Referred By Contact Refer red To Contact Radiology Diagnoses Fatty Liver Failure Liver (HCC) Cirrhosis Alcoholic (HCC) Preoperative Exam Ascites Abnormal Liver Function Test Warren Hernández M.D., [facility] Region Procedures CT Abdomen without and with IV Contrast M.P.H. [address] [place] [address] Referral ID Status Reason Start Date Expiration Date Visits Requ ested Visits Authorized [id number] Closed 09/08/2021 09/08/2022 1 1 Reason for Visit MRI/CAT/PET Scan (Routine) - Closed Specialty Diagnoses / Procedures Referred By Contact Refer red To Contact Radiology Diagnoses Fatty Liver Failure Liver (HCC) Cirrhosis Alcoholic (HCC) Preoperative Exam Ascites Abnormal Liver Function Test Warren Hernández M.D., [facility] Region Procedures CT Abdomen without and with IV Contrast M.P.H. [address] [place] [address] Referral ID Status Reason Start Date Expiration Date Visits Requ ested Visits Authorized [id number] Closed 09/08/2021 09/08/2022 1 1 Encounter Details Date Type Department Care Team Description 09/22/2021 Hospital Encounter Department of Deena Hernández fred; Radiology, [place] Warren Schaefer M.D., Greg segal Liver (HCC); [facility], in M.P.H. Cirrhosis Alcoholic (HCC); [place], [place] [address] [facility] Preoperative Exam; [address] [place], [place] Ascites; [place] [address] Abnormal Liver Function Test [id number] [phone] Social History Tobacco Use Types Packs/Day Years [...] you attend jainism or Patient refused 2021 amish services? 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 [address] [place] [phone] Appointment Gastroenterology demian Silver, 2 Hepatology Yue Segal M.D. [address] [place] [phone] Virtual Visit Transplant Matthew Jerome 2 Tyrell Rodriguez M.D. [address] [place] [address] [phone] Office Visit Gastroenterology and Matthew Jerome 2 Hepatology Tyrell Rodriguez M.D. [address] [place] [address] [phone] Appointment Radiology Matthew Jerome 2 YTyrell M.D. [address] [place] [address] [phone] Hospital Gastroenterology and Matthew Jerome Cirrhos is Alcoholic (HCC) 2 Encounter Hepatology Vik RodriguezBLilian Bedolla [address] [place] [phone] Anesthesia Event Gastroenterology and Rl, [place] Hepatology Ervin Burgos M.D. [address] [place] [phone] Surgery Gastroenterology and Matthew Jerome ESOPHAG OGASTRODUODENOSCOPY 2 Hepatology Tyrell Rodriguez M.D. [address] [place] [phone] Scheduled Procedures Name Priority Associated Diagnoses Date/Time ESOPHAGOGASTRODUODENOSCOPY Cirrhosis Alc oholic (HCC) 03/20/2022 8:45 AM SALES REPRESENTATIVE ELECTRIC SERVICE Hypertension Portal (HCC) documented as of [...] CT. No bowel obstruction. No free intraperit agrcia air. Normal caliber abdominal aorta. Bones and [...] dose documented in this encounter Care Teams Crew Car Driver Relationship Specialty Start Date End Date Elsewhere, Pcp PCP - General Family Medicine 03/10/20 11/30/21 [facility]- [place] lab 08/25/21 Ervin Schroeder MD Referring Provider Family Medicine 03/24/[address] [place], [place] [phone] documented as of this encounter
--- OUTSIDE RECORDS SUMMARY | 2022-02-16 12:27 | XMS_ITS | Encounter Summary ---
:1990 Author Organization [facility] Address [address] [place] [address] Care Team Providers Name Role Phone Elsewhere, Pcp Primary Care Provider Unavailable Encounter Details Date Type Department Care Team Description 09/03/2021 Clinical Communication Division of [facility] Marco Alberto, Internal Medicine, [facility] [address] [place] [address] [place] [phone] [place], [place] [phone] (Work) [phone] Social History Tobacco Use Types Packs/Day Years [...] Date Recorded Female 04/12/2021 7:39 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 - 09/03/2021 5:26 PM CDT MWCCT TELEPHONE COMMUNICATION NOTE Child Daycare Worker: None The patient was called regarding a [...] your primary care provider or present to [facility] emergency department for evaluation. Treatment [...] were used: Nursing or Provider judgement, [facility], [facility] Protocols Marco Alberto M.D. [place] COVID Care Team [facility] and [facility] documented in this encounter Plan of Treatment Upcoming Encounters Date Type Specialty Care Team Description Telemedicine Transplant 2 Appointment Radiology Matthew Jerome 2 YTyrell M.D. [address] [place] [phone] Appointment Gastroenterology and Adrianne, 2 Hepatology Yue Burciaga M.D. [address] [place] [phone] Virtual Visit Transplant Matthew Jerome 2 Tyrell Rodriguez M.D. [address] [place] [phone] Office Visit Gastroenterology and LuisNew abdular 2 Hepatology Tyrell Rodriguez M.D. [address] [place] [phone] Appointment Radiology Mathtew Jerome 2 Tyrell Rodriguez M.D. [address] [place] [phone] Hospital Gastroenterology and Matthew Jerome Cirrhos is Alcoholic (HCC) 2 Encounter Hepatology Tyrell Rodriguez M.D. [address] [place] [phone] Anesthesia Event Gastroenterology and Rl, 2 Hepatology Ervin Burgos M.D. [address] [place] [phone] Surgery Gastroenterology and [place] ESOPHAG OGASTRODUODENOSCOPY 2 Hepatology Tyrell Rodriguez M.D. [address] [place] [phone] Scheduled Procedures Name Priority Associated Diagnoses Date/Time ESOPHAGOGASTRODUODENOSCOPY Cirrhosis Alc oholic (HCC) 03/20/2022 8:45 AM CURRICULUM AND ASSESSMENT DIRECTOR Hypertension Portal (HCC) documented as of this encounter Visit Diagnoses Not on filedocumented in this encounter Additional Health Concerns Infection Onset Date Last Indicated Resolved Time COVID19 08/29/2021 08/29/2021 09/18/2021 8:31 AM CDT documented as of this encounter Care Teams Roll Wrapper Relationship Specialty Start Date End Date Elsewhere, Pcp PCP - General Family Medicine 03/10/20 11/30/21 [facility]- [place] lab 08/25/21 Ervin Schroeder MD Referring Provider Family Medicine 03/24/[address] [place] [address] documented as of this encounter
--- OUTSIDE RECORDS SUMMARY | 2022-02-16 12:27 | XMS_ITS | Encounter Summary ---
:1990 Author Organization [facility] Address [address] [place] [address] Care Team Providers Name Role Phone Elsewhere, Pcp Primary Care Provider Unavailable Encounter Details Date Type Department Care Team Description 09/05/2021 Clinical Communication Department of Kerry Naranjo Gastroenterology in [place], [place] C.N.P., M.S.N. 1025 [facility] 1025 [place] [address] [place], [place] [phone] Social History Tobacco Use Types Packs/Day [...] you attend orthodox or Patient refused 2021 restorationist services? 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 [address] [place] [phone] Appointment Gastroenterology demian Silver 2 Hepatology Yue Burciaga M.D. [address] [place] [phone] Virtual Visit Transplant Queenie Matthew 2 YTyrell M.D. [address] [place] [phone] Office Visit Gastroenterology and Queenie Matthew 2 Hepatology Tyrell Rodriguez M.D. [address] [place] [phone] Appointment Radiology Matthew Jermoe 2 YTyrell M.D. [address] [place] [phone] Hospital Gastroenterology and QueenieNewar Cirrhos is Alcoholic (HCC) 2 Encounter Hepatology Tyrell Rodriguez M.D. [address] [place] [phone] Anesthesia Event Gastroenterology and Rl, 2 Hepatology Ervin Burgos M.D. [address] [place] [address], [place] [phone] Surgery Gastroenterology and Mousa, Matthew ESOPHAG OGASTRODUODENOSCOPY 2 Hepatology YTyrell M.D. [address] [place] [phone] Scheduled Procedures Name Priority Associated Diagnoses Date/Time ESOPHAGOGASTRODUODENOSCOPY Cirrhosis Alc oholic (HCC) 03/20/2022 8:45 AM OBSTETRICS AND GYNECOLOGY PROFESSOR Hypertension Portal (HCC) documented as of this encounter Results (ABNORMAL) Prothrombin Time (PT) (02/12/2022 10:16 AM CDT) [facility] gist Method Time Signature Prothrombin 30.8 [...] Organization Address City/State/ZIP Code Phon e Number [facility] - [address] [place], [place] [address] [facility] [place] [address] [facility] [address] documented [...] documented as of this encounter Care Teams Float Remover Relationship Specialty Start Date End Date Elsewhere, Pcp PCP - General Family Medicine 03/10/20 11/30/21 [facility] 08/25/21 Ervin Schroeder MD Referring Provider Family Medicine 03/24/[address] [place] [address] documented as of this encounter
--- OUTSIDE RECORDS SUMMARY | 2022-02-16 12:27 | XMS_ITS | Encounter Summary ---
:1990 Author Organization [facility] Address [address] [place] [address] Care Team Providers Name Role Phone Elsewhere, Pcp Primary Care Provider Unavailable Reason for Referral Outpatient (Routine) - Closed Specialty Diagnoses / Procedures Referred By Contact Refer red To Contact Diagnoses Cirrhosis Alcoholic (HCC) Abnormal Liver Function Test Ascites Pretransplant Recipient Evaluation Exam Preoperative Exam Warren Hernández [facility] Region Procedures Echo Transthoracic (TTE) Lilian, M.P.H. [address] [place] [address] Referral ID Status Reason Start Date Expiration Date Visits Requ ested Visits Authorized [id number] Closed 08/31/2021 08/31/2022 1 1 Reason for Visit Outpatient (Routine) - Closed Specialty Diagnoses / Procedures Referred By Contact Refer red To Contact Diagnoses Cirrhosis Alcoholic (HCC) Abnormal Liver Function Test Ascites Pretransplant Recipient Evaluation Exam Preoperative Exam Warren Hernández, [facility] Region Procedures Echo Transthoracic (TTE) Lilian, M.P.H. [address] [place] [address] Referral ID Status Reason Start Date Expiration Date Visits Requ ested Visits Authorized [id number] Closed 08/31/2021 08/31/2022 1 1 Encounter Details Date Type Department Care Team Description 09/23/2021 Hospital Department of [place], Cirrhosis Alco holic (HCC); Encounter Cardiovascular Warren A, Abnormal Live r Function Test; Diseases in [place], Lilian, M.P.H . Ascites; [place] [address] [facility] Pretransplant Recipient Evaluation Exam; 1025 [place], [place] [address] [phone] Social History Tobacco Use Types Packs/Day Years [...] you attend gnosticism or Patient refused 2021 restorationist services? 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 [address] [place] [phone] Appointment Gastroenterology demian Silver 2 Hepatology Yue Burciaga M.D. [address] [place] [phone] Virtual Visit Transplant LuisNew abdular 2 YTyrell M.D. [address] [place] [phone] Office Visit Gastroenterology and Matthew Jerome 2 Hepatology Tyrell Rodriguez M.D. [address] [place] [phone] Appointment Radiology LuisNew abdular 2 YTyrell M.D. [address] [place] [phone] Hospital Gastroenterology and Matthew Jerome Cirrhos is Alcoholic (HCC) 2 Encounter Hepatology Tyrell Rodriguez M.D. [address] [place] [phone] Anesthesia Event Gastroenterology and Rl, 2 Hepatology Ervin Burgos M.D. [address] [place] [phone] Surgery Gastroenterology and Luischantell Matthew ESOPHAG OGASTRODUODENOSCOPY 2 Hepatology Tyrell Rodriguez M.D. [address] [place] [phone] Scheduled Procedures Name Priority Associated Diagnoses Date/Time ESOPHAGOGASTRODUODENOSCOPY Cirrhosis Alc oholic (HCC) 03/20/2022 8:45 AM ELECTROENCEPHALOGRAPH TECHNOLOGIST Hypertension Portal (HCC) documented as of [...] COLOR AND CONTRAST (09/23/2021 4:39 PM CDT) [facility] Method Time Signature Ejection Fraction [...] protocol documented in this encounter Care Teams Turbine Operator Relationship Specialty Start Date End Date Elsewhere, Pcp PCP - General Family Medicine 03/10/20 11/30/21 [facility] [place] lab 08/25/21 Ervin Schroeder MD Referring Provider Family Medicine 03/24/[address] [place] [address] documented as of this encounter
--- OUTSIDE RECORDS SUMMARY | 2022-02-16 12:27 | XMS_ITS | Encounter Summary ---
:1990 Author Organization [facility] Address [address] [place] [address] Care Team Providers Name Role Phone Elsewhere, Pcp Primary Care Provider Unavailable Encounter Details Date Type Department Care Team Description 09/09/2021 Orders Only Department of Mousa, Matthew Y, Abnormal Angelica er Gastroenterology in M.B.BJoshua Bedolla. Function Test [address] (Primary Dx) 1025 [place] [address] [phone] Social History Tobacco Use Types Packs/Day Years [...] you attend jain or Patient refused 2021 yarsanism services? 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 [address] [place] [phone] Virtual Visit Transplant Matthew Jerome 2, M.B.BLilian Bedolla [address] [place] [phone] Office Visit Gastroenterology and Matthew Jerome 2 Hepatology Tyrell Rodriguez M.D. [address] [place] [phone] Appointment Radiology [facility] 2 YTyrell M.D. [address] [place] [phone] Hospital Gastroenterology and [facility] Cirrhos is Alcoholic (HCC) 2 Encounter Hepatology Tyrell Rodriguez M.D. [address] [place] [phone] Anesthesia Event Gastroenterology and Rl, 2 Hepatology Ervin Burgos M.D. [address] [place] [phone] Surgery Gastroenterology and [facility] ESOPHAG OGASTRODUODENOSCOPY 2 Hepatology Tyrell Rodriguez M.D. [address] [place] [phone] Scheduled Procedures Name Priority Associated Diagnoses Date/Time ESOPHAGOGASTRODUODENOSCOPY Cirrhosis Alc oholic (HCC) 03/20/2022 8:45 AM HIDE SPLITTER Hypertension Portal (HCC) documented as of this encounter Results Creatinine with Estimated GFR (09/19/2021 1:32 PM CDT) athologist Signature Creatinine 0.68 0.59 - 09/19/2021 [place] 1.04 mg/dL 4:09 PM CDT eGFR-Black/Afric >90 >=60 09/19/2021 [place] an Finnish mL/min/BSA 4:09 PM CDT Comment: ----ADDITIONAL INFORMATION---- [...] [facility]- [address] [place] [address] [facility] [place] [address] System in [place] [address] documented in this encounter Visit Diagnoses Diagnosis Abnormal Liver Function Test - Primary Cirrhosis Alcoholic (HCC) Cirrhosis Alcoholic (HCC) Hypertension Portal (HCC) documented in this encounter Additional Health Concerns Infection Onset Date Last Indicated Resolved Time COVID19 08/29/2021 08/29/2021 09/18/2021 8:31 AM CDT documented as of this encounter Care Teams Scribing Machine Operator Relationship Specialty Start Date End Date Elsewhere, Pcp PCP - General Family Medicine 03/10/20 11/30/21 [facility] [place] lab 08/25/21 Ervin Schroeder MD Referring Provider Family Medicine 03/24/[address] [place] [address] documented as of this encounter
--- OUTSIDE RECORDS SUMMARY | 2022-02-16 12:27 | XMS_ITS | Encounter Summary ---
:1990 Author Organization [facility] Address [address] [place] [address] Care Team Providers Name Role Phone Elsewhere, Pcp Primary Care Provider Unavailable Encounter Details Date Type Department Care Team Description 09/19/2021 Hospital Encounter Department of Matthew Jerome Abnorm al Liver Laboratory Medicine M.BSumaBGraeme, MSuma Wilcox Function Test in [address] [phone] [place] [phone] (Work) [phone] Social History Tobacco Use Types Packs/Day Years [...] you attend zoroastrian or Patient refused 2021 confucianism services? 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 [address] [place] [phone] Virtual Visit Transplant Matthew Jerome 2 Joshua RodriguezBSumaBLilian Bedolla [address] [place] [phone] Office Visit Gastroenterology and Matthew Jerome 2 Hepatology Joshua RodriguezBSumaBLilian Bedolla [address] [place] [phone] Appointment Radiology Matthew Jerome 2 YJoshuaB.B.Lilian [place] [address] [place] [phone] Hospital Gastroenterology and [facility] Cirrhos is Alcoholic (HCC) 2 Encounter Hepatology Tyrell Rodriguez M.D. [address] [place] [phone] Anesthesia Event Gastroenterology and Rl, 2 Hepatology Ervin Burgos M.D. [address] [place] [phone] Surgery Gastroenterology and [facility] ESOPHAG OGASTRODUODENOSCOPY 2 Hepatology Tyrell Rodriguez M.D. 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 Hypertension Portal (HCC) documented as of this [...] CDT eGFR-Black/Afric >90 >=60 09/19/2021 [place] an Bhutanese mL/min/BSA 4:09 PM CDT Comment: ----ADDITIONAL INFORMATION---- [...] Phon e Number [facility]- [address] [place] [address] [facility] [place] [address] System in [place] [address] documented in this encounter Visit Diagnoses Diagnosis Abnormal Liver Function Test Cirrhosis Alcoholic (HCC) Cirrhosis Alcoholic (HCC) Hypertension Portal (HCC) documented in this encounter Care Teams Gas Plant Operator Relationship Specialty Start Date End Date Elsewhere, Pcp PCP - General Family Medicine 03/10/20 11/30/21 [facility]- [place] lab 08/25/21 Ervin Schroeder MD Referring Provider Family Medicine 03/24/[address] [place] [address] documented as of this encounter
--- OUTSIDE RECORDS SUMMARY | 2022-02-16 12:27 | XMS_ITS | Encounter Summary ---
:1990 Author Organization [facility] Address [address] [place] [address] Care Team Providers Name Role Phone Elsewhere, Pcp Primary Care Provider Unavailable Reason for Visit Reason Comments Appointment PMR PT Encounter Details Date Type Department Care Team Description 09/15/2021 Clinical Department of Matthew Jerome Appointment (P MR Communication Gastroenterology in Y, M.B.B.S., PT) [place], [place] M.D 1025 [facility] 1025 [place] [address] [place] [phone] Social History Tobacco Use Types Packs/Day Years [...] you attend scientologist or Patient refused 2021 christian services? 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 Thank you in advance Telephone Encounter - Andreas oLpez - 09/15/2021 11:[address] Queenie Henson could you please place an order for [place] for PMR PT appt. Pt would like to see in there is anything available while she is here for LTE. Thank you in advance documented in this encounter Plan of Treatment Upcoming Encounters Date Type Specialty Care Team Description Telemedicine Transplant 2 Appointment Radiology Matthew Jerome 2 YTyrell, Lilian [address] [place] [phone] Appointment Gastroenterology and Adrianne, 2 Hepatology Yue Burciaga M.D. [address] [place] [phone] Virtual Visit Transplant Matthew Jerome 2 Tyrell Rodriguez M.D. [address] [place] [phone] Office Visit Gastroenterology and Matthew Jerome 2 Hepatology Tyrell Rodriguez M.D. [address] [place] [phone] Appointment Radiology Matthew Jerome 2 YTyrell M.D. [address] [place] [phone] Hospital Gastroenterology and Michantell Matthew Cirrhos is Alcoholic (HCC) 2 Encounter Hepatology Tyrell Rodriguez M.D. [address] [place] [phone] Anesthesia Event Gastroenterology and Rl, 2 Hepatology Ervin Burgos M.D. [address] [place] [phone] Surgery Gastroenterology and Luischantell Matthew ESOPHAG OGASTRODUODENOSCOPY 2 Hepatology Tyrell Rodriguez, Lilian [address] [place] [phone] Scheduled Procedures Name Priority Associated Diagnoses Date/Time ESOPHAGOGASTRODUODENOSCOPY Cirrhosis Alc oholic (HCC) 03/20/2022 8:45 AM SWING TENDER Hypertension Portal (HCC) documented as of this encounter Visit Diagnoses Not on filedocumented in this encounter Additional Health Concerns Infection Onset Date Last Indicated Resolved Time COVID19 08/29/2021 08/29/2021 09/18/2021 8:31 AM CDT documented as of this encounter Care Teams Inspector Coated Fabrics Relationship Specialty Start Date End Date Elsewhere, Pcp PCP - General Family Medicine 03/10/20 11/30/21 [facility] [place] lab 08/25/21 Ervin Schroeder MD Referring Provider Family Medicine 03/24/[address] [place] [address] [phone] documented as of this encounter
--- OUTSIDE RECORDS SUMMARY | 2022-02-16 12:27 | XMS_ITS | Encounter Summary ---
:1990 Author Organization [facility] Address [address] [place] [address] Care Team Providers Name Role Phone Elsewhere, Pcp Primary Care Provider Unavailable Encounter Details Date Type Department Care Team Description 09/05/2021 Clinical Communication Division of [place] [facility] in Warren Schaefer M.D.[place], [place] M.P.H. [address] [facility] [address] [place] [address] [place], [place] [phone] Social History Tobacco Use Types Packs/Day Years [...] you attend synagogue or Patient refused 2021 jainism services? 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 Hernández ordered a variety of tests for patient ot complete closer to home. [facility] reachedout to patient to offer tests closer to home and patient stated she would rather drive to [place] for all testing. Due to patient preference, the following orders [facility] before we are able to schedule for patient in [place]. 1. BMD bone Density Spine and Hips [...] 2 Appointment Radiology Matthew Jerome 2 Y, Elizabeth.Lilian [place] [address] [place] [phone] Appointment Gastroenterology and Adrianne, 2 Hepatology Yue Burciaga M.D. [address] [place] [phone] Virtual Visit Transplant Matthew Jerome 2 Tyrell Rodriguez M.D. [address] [place] [phone] Office Visit Gastroenterology and Luischantell Matthew 2 Hepatology Tyrell Rodriguez M.D. [address] [place] [phone] Appointment Radiology Matthew Jerome 2 YTyrell M.D. [address] [place] [phone] [facility] Gastroenterology and Queenie Matthew Cirrhos is Alcoholic (HCC) 2 Encounter Hepatology Tyrell Rodriguez M.D. [address] [place] [phone] Anesthesia Event Gastroenterology and Rl, 2 Hepatology Ervin Burgos M.D. [address] [place] [phone] Surgery Gastroenterology and LuisNew abdular ESOPHAG OGASTRODUODENOSCOPY 2 Hepatology Tyrell Rodriguez, Lilian [address] [place] [phone] Scheduled Procedures Name Priority Associated Diagnoses Date/Time ESOPHAGOGASTRODUODENOSCOPY Cirrhosis Alc oholic (HCC) 03/20/2022 8:45 AM WET END TESTER Hypertension Portal (HCC) documented as of this encounter Visit Diagnoses Not on filedocumented in this encounter Additional Health Concerns Infection Onset Date Last Indicated Resolved Time COVID19 08/29/2021 08/29/2021 09/18/2021 8:31 AM CDT documented as of this encounter Care Teams Manager Civil Relationship Specialty Start Date End Date Elsewhere, Pcp PCP - General Family Medicine 03/10/20 11/30/21 [facility] [place] lab 08/25/21 Ervin Schroeder MD Referring Provider Family Medicine 03/24/[address] [place] [address] documented as of this encounter
--- OUTSIDE RECORDS SUMMARY | 2022-02-16 12:27 | XMS_ITS | Encounter Summary ---
:1990 Author Organization [facility] Address [address] [place] [address] Care Team Providers Name Role Phone Elsewhere, Pcp Primary Care Provider Unavailable Encounter Details Date Type Department Care Team Description 09/03/2021 Virtual Visit Division of [facility] Marco Alberto A bnormal Liver Internal Medicine, M.D. Function Test [facility] in [address] [place] [address] [place] [phone] [place], [place] [phone] (Work) [phone] Social History Tobacco Use Types Packs/Day Years [...] you attend taoist or Patient refused 2021 uatsdin services? 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 - 09/03/2021 5:24 PM CDT Note in error. documented in this encounter Plan of Treatment Upcoming Encounters Date Type Specialty Care Team Description Telemedicine Transplant 2 Appointment Radiology Matthew Jerome 2 YTyrell M.D. 1025 [place] [phone] Appointment Gastroenterology and Adrianne, 2 Hepatology Yue Burciaga M.D. [address] [place] [address] Virtual Visit Transplant Matthew Jerome 2 Tyrell Rodriguez M.D. [address] [place] [phone] Office Visit Gastroenterology and Matthew Jerome 2 Hepatology Tyrell Rodriguez M.D. [address] [place] [phone] Appointment Radiology LuisMatthew abdul 2 Tyrell Rodriguez M.D. [address] [place] [phone] [facility] Gastroenterology and Matthew Jerome Cirrhos is Alcoholic (HCC) 2 Encounter Hepatology Tyrell Rodriguez M.D. [address] [place] [phone] Anesthesia Event Gastroenterology and Rl, 2 Hepatology Ervin Burgos M.D. [address] [place] [phone] Surgery Gastroenterology and Matthew Jerome ESOPHAG OGASTRODUODENOSCOPY 2 Hepatology Tyrell Rodriguez M.D. [address] [place] [phone] Scheduled Procedures Name Priority Associated Diagnoses Date/Time ESOPHAGOGASTRODUODENOSCOPY Cirrhosis Alc oholic (HCC) 03/20/2022 8:45 AM POLYMERIZATION HELPER Hypertension Portal (HCC) documented as of this encounter Visit Diagnoses Diagnosis Abnormal Liver Function Test Cirrhosis Alcoholic (HCC) Cirrhosis Alcoholic (HCC) Hypertension Portal (HCC) documented in this encounter Additional Health Concerns Infection Onset Date Last Indicated Resolved Time COVID19 08/29/2021 08/29/2021 09/18/2021 8:31 AM CDT documented as of this encounter Care Teams Director Epidemiology Relationship Specialty Start Date End Date Elsewhere, Pcp PCP - General Family Medicine 03/10/20 11/30/21 [facility] 08/25/21 Ervin Schroeder MD Referring Provider Family Medicine 03/24/[address] [place] [address] documented as of this encounter
--- OUTSIDE RECORDS SUMMARY | 2022-02-16 12:27 | XMS_ITS | Encounter Summary ---
:1990 Author Organization [facility] Address [address] [place] [address] Care Team Providers Name Role Phone Elsewhere, Pcp Primary Care Provider Unavailable Reason for Visit Reason Comments Patient Education Encounter Details Date Type Department Care Team Description 09/03/2021 Clinical Communication Department of Loreta Vazquez ent Education Infusion Therapy in [place], [place] [address] [place] [address] Social History Tobacco Use Types [...] you attend mu-ism or Patient refused 2021 episcopalian services? 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 [address] [place] [address] Virtual Visit Transplant LuisMatthew abdul 2 Tyrell Rodriguez M.D. [address] [place] [phone] Office Visit Gastroenterology and Matthew Jerome 2 Hepatology Tyrell Rodriguez M.D. [address] [place] [phone] Appointment Radiology Matthew Jerome 2 YTyrell M.D. [address] [place] [phone] Hospital Gastroenterology and Matthew Jerome Cirrhos is Alcoholic (HCC) 2 Encounter Hepatology Tyrell Rodriguez M.D. [address] [place] [phone] Anesthesia Event Gastroenterology and Rl, 2 Hepatology Ervin Burgos M.D. [address] [place] [phone] Surgery [facility] ESOPHAG OGASTRODUODENOSCOPY 2 Hepatology Vik RodriguezBLilian Bedolla [address] [place] [phone] Scheduled Procedures Name Priority Associated Diagnoses Date/Time ESOPHAGOGASTRODUODENOSCOPY Cirrhosis Alc oholic (HCC) 03/20/2022 8:45 AM INTAKE CLERK Hypertension Portal (HCC) documented as of this encounter Visit Diagnoses Not on filedocumented in this encounter Additional Health Concerns Infection Onset Date Last Indicated Resolved Time COVID19 08/29/2021 08/29/2021 09/18/2021 8:31 AM CDT documented as of this encounter Care Teams Public Housing Interviewer Relationship Specialty Start Date End Date Elsewhere, Pcp PCP - General Family Medicine 03/10/20 11/30/21 [facility] [place] [facility] 08/25/21 Ervin Schroeder MD Referring Provider Family Medicine 03/24/[address] [place] [address] documented as of this encounter
--- OUTSIDE RECORDS SUMMARY | 2022-02-16 12:27 | XMS_ITS | Encounter Summary ---
:1990 Author Organization [facility] Address [address] [place] [address] Care Team Providers Name Role Phone Elsewhere, Pcp Primary Care Provider Unavailable Reason for Referral Outpatient (Routine) - Closed Specialty Diagnoses / Procedures Referred By Contact Refer red To Contact Diagnoses Fatty Liver Failure Liver (HCC) Cirrhosis Alcoholic (HCC) Preoperative Exam Ascites Abnormal Liver Function Test Warren Hernández M.D., [facility] Procedures DX Chest AP or PA and Lateral 2 Views [facility] [address] [place] [address] Referral ID Status Reason Start Date Expiration Date Visits Requ ested Visits Authorized [id number] Closed 09/08/2021 09/08/2022 1 1 Reason for Visit Outpatient (Routine) - Closed Specialty Diagnoses / Procedures Referred By Contact Refer red To Contact Diagnoses Fatty Liver Failure Liver (HCC) Cirrhosis Alcoholic (HCC) Preoperative Exam Ascites Abnormal Liver Function Test Warren Hernández M.D., [facility] Region Procedures DX Chest AP or PA and Lateral 2 Views [facility] [address] [place] [address] Referral ID Status Reason Start Date Expiration Date Visits Requ ested Visits Authorized [id number] Closed 09/08/2021 09/08/2022 1 1 Encounter Details Date Type Department Care Team Description 09/22/2021 Hospital Encounter Department of Edgar, Deena Aceves fred; Radiology, [place] Warren Schaefer M.D., Greg segal Liver (HCC); [facility], in [facility] Cirrhosis Alcoholic (HCC); [place] [address] [facility] Preoperative Exam; [address] [place], [place] Ascites; [place] [address] Abnormal Liver Function Test [phone] Social History [...] you attend mosque or Patient refused 2021 yarsanism services? 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 [address] [place] [phone] Appointment Gastroenterology demian Silver 2 Hepatology Yue Segal M.D. [address] [place] [phone] Virtual Visit Transplant Matthew Jerome 2 YTyrell M.D. [address] [place] [phone] Office Visit Gastroenterology and Matthew Jerome 2 Hepatology Tyrell Rodriguez M.D. [address] [place] [phone] Appointment Radiology Matthew Jerome 2 YTyrell M.D. [address] [place] [phone] Hospital Gastroenterology and Queenie Matthew Cirrhos is Alcoholic (HCC) 2 Encounter Hepatology Vik RodriguezBLilian Bedolla [address] [place] [phone] Anesthesia Event Gastroenterology and Rl, 2 Hepatology Ervin Burgos M.D. [address] [place] [phone] Surgery Gastroenterology and Matthew Jerome ESOPHAG OGASTRODUODENOSCOPY 2 Hepatology Y, Lilian Santillan [address] [place] [phone] Scheduled Procedures Name Priority Associated Diagnoses Date/Time ESOPHAGOGASTRODUODENOSCOPY Cirrhosis Alc oholic (HCC) 03/20/2022 8:45 AM WHARFMASTER Hypertension Portal (HCC) documented as of this [...] documented in this encounter Care Teams Associate Pathologist Relationship Specialty Start Date End Date Elsewhere, Pcp PCP - General Family Medicine 03/10/20 11/30/21 [facility] 08/25/21 Ervin Schroeder MD Referring Provider Family Medicine 11/22/[address] [place] [address] documented as of this encounter
--- OUTSIDE RECORDS SUMMARY | 2022-02-16 12:27 | XMS_ITS | Encounter Summary ---
:1990 Author Organization [facility] Address [address] [place] [address] Care Team Providers Name Role Phone Elsewhere, Pcp Primary Care Provider Unavailable Reason for Visit Reason Comments Medication Question Encounter Details Date Type Department Care Team Description 09/18/2021 Clinical Department of Aamir Spicer Communication Gastroenterology in [place], [place] L.P.N. [address] [facility] [phone] [place] [phone] 2 (Work) [phone] Social History Tobacco Use Types Packs/Day Years [...] or the highest technical, or vocational p [facility] degree you have received? 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 [address] [place] [phone] Virtual Visit Transplant Luischantell Matthew 2 Joshua RodriguezBSumaB.Kath, Lilian [address] [place] [phone] Office Visit Gastroenterology and Queenie Matthew 2 Hepatology Joshua RodriguezB.B.Lilian Stock[place] [address] [place] [phone] Appointment Radiology Matthew Jerome 2 YJoshuaB.B.SLilian Moise [address] [place] [phone] Hospital Gastroenterology and QueenieMatthew Cirrhos is Alcoholic (HCC) 2 Encounter Hepatology Joshua RodriguezB.B.SSuma, Lilian [address] [place] [phone] Anesthesia Event Gastroenterology and Rl, [place] Hepatology Ervin Burgos M.D. [address] [place] [phone] Surgery Gastroenterology and Matthew Jerome ESOPHAG OGASTRODUODENOSCOPY 2 Hepatology Tyrell Rodriguez M.D. 1025 [place] [phone] Scheduled Procedures Name Priority Associated Diagnoses Date/Time ESOPHAGOGASTRODUODENOSCOPY Cirrhosis Alc oholic (HCC) 03/20/2022 8:45 AM SUPERVISOR FILTRATION Hypertension Portal (HCC) documented as of this encounter Visit Diagnoses Diagnosis Anxiety - Primary Cirrhosis Alcoholic (HCC) Cirrhosis Alcoholic (HCC) Hypertension Portal (HCC) documented in this encounter Additional Health Concerns Infection Onset Date Last Indicated Resolved Time COVID19 08/29/2021 08/29/2021 09/18/2021 8:31 AM CDT documented as of this encounter Care Teams Corset Maker Relationship Specialty Start Date End Date Elsewhere, Pcp PCP - General Family Medicine 03/10/20 11/30/21 [facility] [place] [facility] 08/25/21 Ervin Schroeder MD Referring Provider Family Medicine 03/24/[address] [place] [address] documented as of this encounter
--- OUTSIDE RECORDS SUMMARY | 2022-02-16 12:27 | XMS_ITS | Encounter Summary ---
:1990 Author Organization [facility] Address [address] [place] [address] Care Team Providers Name Role Phone Elsewhere, Pcp Primary Care Provider Unavailable Reason for Visit Reason Comments Appointment PMR 09/23 Phone Contact PMR PT Encounter Details Date Type Department Care Team Description 09/14/2021 Clinical Camron Brannon (PMR Communication Center for [facility], 09/23); Phone Transplantation and MCee., Ph.D. Contact (PMR PT) Clinical [facility] [address] in [facility] [address] [facility] [phone] Social History Tobacco Use Types Packs/Day Years [...] you attend confucianist or Patient refused 2021 voodoo services? 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 None of the [...] Radiology LuisNew abdular 2 YTyrell M.D. [address] [place] [phone] Appointment Gastroenterology demian Silver 2 Hepatology Yue Burciaga M.D. [address] [place] [phone] Virtual Visit Transplant LuisNew abdular 2 YTyrell M.D. [address] [place] [phone] Office Visit Gastroenterology and Matthew Jerome 2 Hepatology Tyrell Rodriguez M.D. [address] [place] [phone] Appointment Radiology Matthew Jerome 2 YTyrell M.D. [address] [place] [phone] Hospital Gastroenterology and LuisMatthew abdul Cirrhos is Alcoholic (HCC) 2 Encounter Hepatology Tyrell Rodriguez M.D. [address] [place] [phone] Anesthesia Event Gastroenterology and Rl, 2 Hepatology Ervin Burgos M.D. [address] [place] [phone] Surgery Gastroenterology and LuischantellMatthew ESOPHAG OGASTRODUODENOSCOPY 2 Hepatology Tyrell Rodriguez M.D. [address] [place] [phone] Scheduled Procedures Name Priority Associated Diagnoses Date/Time ESOPHAGOGASTRODUODENOSCOPY Cirrhosis Alc oholic (HCC) 03/20/2022 8:45 AM CHERRY PITTER Hypertension Portal (HCC) documented as of this encounter Visit Diagnoses Not on filedocumented in this encounter Additional Health Concerns Infection Onset Date Last Indicated Resolved Time COVID19 08/29/2021 08/29/2021 09/18/2021 8:31 AM CDT documented as of this encounter Care Teams Project Engineer Chemicals Relationship Specialty Start Date End Date Elsewhere, Pcp PCP - General Family Medicine 03/10/20 11/30/21 [facility] [place] [facility] 08/25/21 Ervin Schroeder MD Referring Provider Family Medicine 03/24/[address] [place] [address] documented as of this encounter
--- OUTSIDE RECORDS SUMMARY | 2022-02-16 12:27 | XMS_ITS | Encounter Summary ---
:1990 Author Organization [facility] Address [address] [place] [address] Care Team Providers Name Role Phone Elsewhere, Pcp Primary Care Provider Unavailable Encounter Details Date Type Department Care Team Description 09/01/2021 Clinical Communication Department of Kerry Naranjo Gastroenterology in [place], [place] C.N.P., M.S.N. 1025 [facility] 1025 [place] [address] [place], [place] [phone] Social History Tobacco Use Types Packs/Day [...] you attend moravian or Patient refused 2021 jew services? 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 [address] [place] [phone] Virtual Visit Transplant Matthew Jerome 2 YTyrell M.D. [address] [place] [phone] Office Visit Gastroenterology and Matthew Jerome 2 Hepatology Tyrell Rodriguez M.D. [address] [place] [phone] Appointment Radiology LuisMatthew abdul 2 YTyrell M.D. [address] [place] [phone] Hospital Gastroenterology and Matthew Jerome Cirrhos is Alcoholic (HCC) 2 Encounter Hepatology Tyrell Rodriguez M.D. [address] [place] [phone] Anesthesia Event Gastroenterology and Rl, 2 Hepatology Ervin Burgos M.D. [address] [place] [phone] Surgery Gastroenterology and Matthew Jerome ESOPHAG OGASTRODUODENOSCOPY 2 Hepatology Tyrell Rodriguez M.D. [address] [place] [phone] Scheduled Procedures Name Priority Associated Diagnoses Date/Time ESOPHAGOGASTRODUODENOSCOPY Cirrhosis Alc oholic (HCC) 03/20/2022 8:45 AM MINT WAFER DEPOSITOR Hypertension Portal (HCC) documented as of this encounter Visit Diagnoses Not on filedocumented in this encounter Additional Health Concerns Infection Onset Date Last Indicated Resolved Time COVID19 08/29/2021 08/29/2021 09/18/2021 8:31 AM CDT documented as of this encounter Care Teams Flat Locker Relationship Specialty Start Date End Date Elsewhere, Pcp PCP - General Family Medicine 03/10/20 11/30/21 [facility] 08/25/21 Ervin Schroeder MD Referring Provider Family Medicine 03/24/[address] [place] [address] documented as of this encounter
--- OUTSIDE RECORDS SUMMARY | 2022-02-16 12:27 | XMS_ITS | Encounter Summary ---
:1990 Author Organization [facility] Address [address] [place] [address] Care Team Providers Name Role Phone Elsewhere, Pcp Primary Care Provider Unavailable Encounter Details Date Type Department Care Team Description 09/12/2021 Clinical Communication Department of Matthew Jerome Gastroenterology in [place] Perez. [address] [place] [phone] Social History Tobacco Use Types Packs/Day Years [...] you attend christian or Patient refused 2021 moravian services? 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 - 09/15/2021 9:47 PM CDT Thanks so much Olga Telephone Encounter - Priscilla Castorena - 09/12/2021 12:02 PM CDT Patient was supposed to have an appointment for PMR CONS PT at [facility]. The appt has been cancelleddue [...] Radiology Matthew Jerome 2 Vik RodriguezBGraeme, Lilian [address] [place] [address] [phone] Appointment Gastroenterology demian Silver 2 Hepatology Yue Burciaga M.D. [address] [place] [phone] Virtual Visit Transplant Matthew Jerome 2 Tyrell Rodriguez M.D. [address] [place] [phone] Office Visit Gastroenterology and Matthew Jerome 2 Hepatology Vik RodriguezBLilian Bedolla [address] [place] [phone] Appointment Radiology Matthew Jerome 2 YJoshuaBSumaBLilian Bedolla [address] [place] [phone] Hospital Gastroenterology and Matthew Jerome Cirrhos is Alcoholic (HCC) 2 Encounter Hepatology Joshua RodriguezB.B.Lilian Stockton [address] [place] [phone] Anesthesia Event Gastroenterology and Rl, 2 Hepatology Ervin Burgos M.D. [address] [place] [phone] Surgery Gastroenterology and Matthew Jerome ESOPHAG OGASTRODUODENOSCOPY 2 Hepatology Tyrell Rodriguez M.D. [address] [place] [phone] Scheduled Procedures Name Priority Associated Diagnoses Date/Time ESOPHAGOGASTRODUODENOSCOPY Cirrhosis Alc oholic (HCC) 03/20/2022 8:45 AM JIVE DEVELOPER Hypertension Portal (HCC) documented as of this encounter Visit Diagnoses Diagnosis Edema Leg - Primary Cirrhosis Alcoholic (HCC) Cirrhosis Alcoholic (HCC) Hypertension Portal (HCC) documented in this encounter Additional Health Concerns Infection Onset Date Last Indicated Resolved Time COVID19 08/29/2021 08/29/2021 09/18/2021 8:31 AM CDT documented as of this encounter Care Teams Dope Heater Relationship Specialty Start Date End Date Elsewhere, Pcp PCP - General Family Medicine 03/10/20 11/30/21 [facility] [place] [facility] 08/25/21 Ervin Schroeder MD Referring Provider Family Medicine 03/24/[address] [place] [address] documented as of this encounter
--- OUTSIDE RECORDS SUMMARY | 2022-02-16 12:28 | XMS_ITS | Encounter Summary ---
:1990 Author Organization [facility] Address [address] [place] [address] Care Team Providers Name Role Phone Elsewhere, Pcp Primary Care Provider Unavailable Encounter Details Date Type Department Care Team Description 08/11/2021 Hospital Encounter Department of Mousa, Matthew Y, Edema Leg; Laboratory Medicine Joshua Santillan. Cirrhosis Alcoholic (HCC) in [place], [address] [place] [phone] [facility] [place] [phone] (Work) [phone] Social History Tobacco Use Types Packs/Day Years [...] you attend tenriism or Patient refused 2021 adventism services? 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 - 08/13/2021 10:[address] [facility] Please can you notify [...] Radiology Matthew Jerome 2, M.B.B.S., M.D. 1025 [place] [phone] Appointment Gastroenterology and Adrianne, 2 Hepatology Yue Burciaga M.D. [address] [place] [phone] Virtual Visit Transplant Matthew Jerome 2, M.B.B.S., M.D. [address] [place] [phone] Office Visit Gastroenterology and [facility] 2 Hepatology Tyrell Rodriguez M.D. [address] [place] [phone] Appointment Radiology [facility] 2 Tyrell Rodriguez M.D. [address] [place] [phone] [facility] Gastroenterology and [facility] Cirrhos is Alcoholic (HCC) 2 Encounter Hepatology Tyrell Rodriguez M.D. [address] [place] [phone] Anesthesia Event Gastroenterology and Rl, 2 Hepatology Ervin Burgos M.D. [address] [place] [address] [phone] Surgery Gastroenterology and [facility] ESOPHAG OGASTRODUODENOSCOPY 2 Hepatology Tyrell Rodriguez M.D. [address] [place] [phone] Scheduled Procedures Name Priority Associated Diagnoses Date/Time ESOPHAGOGASTRODUODENOSCOPY Cirrhosis Alc oholic (HCC) 03/20/2022 8:45 AM PHYSICAL FITNESS TEACHER Hypertension Portal (HCC) documented as of [...] CDT eGFR-Black/Afri >90 >=60 08/11/2021 [place] can Lithuanian mL/min/BSA 1:53 PM CDT Comment: ----ADDITIONAL INFORMATION---- [...] Number [facility] [address] [place] [address] [place] [address] System in [place] [address] [facility] documented in this encounter Visit Diagnoses Diagnosis Edema Leg Cirrhosis Alcoholic (HCC) Cirrhosis Alcoholic (HCC) Cirrhosis Alcoholic (HCC) Hypertension Portal (HCC) documented in this encounter Care Teams Fastener Sewing Machine Operator Relationship Specialty Start Date End Date Elsewhere, Pcp PCP - General Family Medicine 03/10/20 11/30/21 Ervin Schroeder MD Referring Provider Family Medicine 03/24/211979 [address] [place] [address] documented as of this encounter
--- OUTSIDE RECORDS SUMMARY | 2022-02-16 12:28 | XMS_ITS | Encounter Summary ---
:1990 Author Organization [facility] Address [address] [place] [address] Care Team Providers Name Role Phone Elsewhere, Pcp Primary Care Provider Unavailable Encounter Details Date Type Department Care Team Description 08/31/2021 Nurse Triage Department of [facility] Naila Walters R.N. Medicine, [facility], in [address] [place], [place] [address] [place] [phone] [place] [address] [phone] Social History Tobacco Use Types Packs/Day Years [...] you attend hinduism or Patient refused 2021 druze services? Do [...] or the highest technical, or vocational p Telerasallie degree you have received? 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 - 08/31/2021 10:46 AM CDT Patient reports receiving a text message from [place] Department of [facility] regarding her recent positive Covid test. The text provided a link which asked for a code. Patient is seeking more information regarding code. Unable to answer question at this time. Patient denies any worsening symptoms for triage at this time. Patient will check her email for more information from the [facility]. documented in this encounter Plan of Treatment Upcoming Encounters Date Type Specialty Care Team Description Telemedicine Transplant 2 Appointment Radiology Matthew Jerome 2 YTyrell M.D. [address] [place] [address] [phone] Appointment Gastroenterology and Adrianne, 2 Hepatology Yue Burciaga M.D. [address] [place] [address], [place] [phone] Virtual Visit Transplant Matthew Jerome 2 Tyrell Rodriguez M.D. [address] [place] [phone] Office Visit Gastroenterology and Matthew Jerome 2 Hepatology Tyrell Rodriguez M.D. [address] [place] [phone] Appointment Radiology LuisMatthew abdul 2 Tyrell Rodriguez M.D. [address] [place] [phone] Hospital Gastroenterology and Matthew Jerome Cirrhos is Alcoholic (HCC) 2 Encounter Hepatology yTrell Rodriguez M.D. [address] [place] [phone] Anesthesia Event Gastroenterology and Rl, 2 Hepatology Ervin Burgos M.D. [address] [place] [phone] Surgery Gastroenterology and Matthew Jerome ESOPHAG OGASTRODUODENOSCOPY 2 Hepatology Tyrell Rodriguez M.D. [address] [place] [phone] Scheduled Procedures Name Priority Associated Diagnoses Date/Time ESOPHAGOGASTRODUODENOSCOPY Cirrhosis Alc oholic (HCC) 03/20/2022 8:45 AM HEALTH EVALUATOR Hypertension Portal (HCC) documented as of this encounter Visit Diagnoses Not on filedocumented in this encounter Additional Health Concerns Infection Onset Date Last Indicated Resolved Time COVID19 08/29/2021 08/29/2021 09/18/2021 8:31 AM CDT documented as of this encounter Care Teams Solar Installation Manager Relationship Specialty Start Date End Date Elsewhere, Pcp PCP - General Family Medicine 03/10/20 11/30/21 [facility] [place] [facility] 08/25/21 Ervin Schroeder MD Referring Provider Family Medicine 03/24/[address] [place] [phone] documented as of this encounter
--- OUTSIDE RECORDS SUMMARY | 2022-02-16 12:28 | XMS_ITS | Encounter Summary ---
:1990 Author Organization [facility] Address [address] [place] [address] Care Team Providers Name Role Phone Elsewhere, Pcp Primary Care Provider Unavailable Encounter Details Date Type Department Care Team Description 08/29/2021 Lab Department of [facility] Kerry Naranjo Enc ounter For [facility] in [place], AWNING HANGER HELPER, C.N.P., [facility] Laboratory [facility].S.N Examination (COVID-19) 1025 [facility] 1025 [place] [address] [place], [place] [phone] (Wo rk) Social History Tobacco Use [...] you attend mu-ism or Patient refused 2021 nondenominational services? 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 For questions, contact the [place] [facility]id Care Team ([facility]): Pager: [phone] In basket: P [facility] COVID-19 POSITIVE Covid Care e-consult NOTE: At the time of testing, patients are instructed to obtain the result by calling the Tele[employer] result line or by checking their online services account. documented in this encounter Plan of Treatment Upcoming Encounters Date Type Specialty Care Team Description Telemedicine Transplant 2 Appointment Radiology LuisNew abdular 2 YTyrell M.D. [address] [place] [phone] Appointment Gastroenterology demian Silver, 2 Hepatology Yue Burciaga M.D. [address] [place] [phone] Virtual Visit Transplant LuisMatthew abdul 2 YTyrell M.D. [address] [place] [phone] Office Visit Gastroenterology and Matthew Jerome 2 Hepatology Tyrell Rodriguez M.D. [address] [place] [address] [phone] Appointment Radiology LuisMatthew abdul 2 YJoshuaBLilian Staples [address] [place] [phone] Hospital Gastroenterology and Matthew Jerome Cirrhos is Alcoholic (HCC) 2 Encounter Hepatology Tyrell Rodriguez M.D. [address] [place] [phone] Anesthesia Event Gastroenterology and Rl, 2 Hepatology Ervin Burgos M.D. [address] [place] [phone] Surgery Gastroenterology and Mousa, Matthew ESOPHAG OGASTRODUODENOSCOPY 2 Hepatology Tyrell Rodriguez M.D. [address] [place] [phone] Scheduled Procedures Name Priority Associated Diagnoses Date/Time ESOPHAGOGASTRODUODENOSCOPY Cirrhosis Alc oholic (HCC) 03/20/2022 8:45 AM SLIP PRESSER Hypertension Portal (HCC) documented as of this encounter Procedures Procedure Name Priority Date/Time Associated Diagnosis Comme nts SARS CORONAVIRUS-2 Routine 08/29/2021 4:14 PM Encounter For Re sults for this RNA, V CDT Preprocedural procedure are in Laboratory Examination the r esults (COVID-19) section. documented in this encounter Results (ABNORMAL) SARS Coronavirus-2 RNA, V Asymptomatic (08/29/2021 4:14 PM CDT) [facility] gist Method Time Signature SARS-CoV-2 Swab, 08/29/2021 [facility] Specimen Nasopharynx 11:28 PM Source CDT SARS CoV-2 Detected (A) Undetected 08/29/2021 [facility] RNA, TMA 11:28 PM CDT Comment: SARS-CoV-2 RNA present. ----ADDITIONAL INFORMATION---- This molecular amplification test was pe rformed using the Aptima SARS-CoV-2 assay ([employer] on the [place] Sys tem under emergency use authorization (EUA) by the U.S. Food and Drug Administ ration. Fact sheets for this EUA assay can be fo und at the following links: For Healthcare Providers: https://www.fd a.gov/media/713627/download For Patients: https://www.fda.gov/media/ 705092/download Specimen Anatomical Collection Method Collection Time Receive d Time (Source) Location / / Volume Laterality Varies 08/29/2021 4:14 PM 5:17 (Nasopharynx) CDT PM CDT Kerry Naranjo APRN, C.N.P., M.S.N. LAB MICROBIOLOGY - GENERAL ORDERABLES Performing Organization Address City/State/ZIP Code Phon e Number [facility] [place] [address] [place] [address] System in [place] 10[address] [facility] documented in this encounter Visit Diagnoses Diagnosis Encounter For Preprocedural Laboratory E xamination (COVID-19) Cirrhosis Alcoholic (HCC) Cirrhosis Alcoholic (HCC) Hypertension Portal (HCC) documented in this encounter Additional Health Concerns Infection Onset Date Last Indicated Resolved Time COVID19 Pending 08/29/2021 08/29/2021 08/29/2021 11:29 PM CDT documented as of this encounter Care Teams Manufacturing Engineering Manager Relationship Specialty Start Date End Date Elsewhere, Pcp PCP - General Family Medicine 03/10/20 11/30/21 [facility] [place] [facility] 08/25/21 Ervin Schroeder MD Referring Provider Family Medicine 03/24/[address] [place] [address] documented as of this encounter
--- OUTSIDE RECORDS SUMMARY | 2022-02-16 12:28 | XMS_ITS | Encounter Summary ---
:1990 Author Organization [facility] Address [address] [place] [address] Care Team Providers Name Role Phone Elsewhere, Pcp Primary Care Provider Unavailable Encounter Details Date Type Department Care Team Description 08/13/2021 Orders Only Department of Mousa, Matthew Y, Ascites Head Of English silva Gastroenterology in MJoshua Perez (Primary Dx) [place], [place] 1025 [facility] 1025 [place] [phone] Social History Tobacco Use Types Packs/Day Years [...] you attend lutheran or Patient refused 2021 islam services? 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 [address] [place] [phone] Appointment Gastroenterology and Adrianne, 2 Hepatology Yue Burciaga M.D. [address] [place] [phone] Virtual Visit Transplant Matthew Jerome 2, M.B.B.S., M.D. [address] [place] [address] [phone] Office Visit Gastroenterology and Matthew Jerome 2 Hepatology Tyrell Rodriguez, Lilian [address] [place] [address] [phone] [facility]ment [facility] YTyrell, Lilian [address] [place] [phone] [facility] Gastroenterology and [facility] Cirrhos is Alcoholic (HCC) 2 Encounter Hepatology Tyrell Rodriguez, Lilian [address] [place] [phone] Anesthesia Event Gastroenterology and [facility], 2 Hepatology Ervin Burgos M.D. [address] [place] [address] [phone] Surgery Gastroenterology and [facility] ESOPHAG OGASTRODUODENOSCOPY 2 Hepatology Tyrell Rodriguez M.D. [address] [place] [phone] Scheduled Procedures Name Priority Associated Diagnoses Date/Time ESOPHAGOGASTRODUODENOSCOPY Cirrhosis Alc oholic (HCC) 03/20/2022 8:45 AM HOTEL CONTROLLER Hypertension Portal (HCC) documented as of this encounter Visit Diagnoses Diagnosis Ascites Chronic - Primary Cirrhosis Alcoholic (HCC) Cirrhosis Alcoholic (HCC) Hypertension Portal (HCC) documented in this encounter Care Teams Caustic Plant Worker Relationship Specialty Start Date End Date Elsewhere, Pcp PCP - General Family Medicine 03/10/20 11/30/21 Ervin Schroeder MD Referring Provider Family Medicine 03/24/[address] [place] [phone] documented as of this encounter
--- OUTSIDE RECORDS SUMMARY | 2022-02-16 12:28 | XMS_ITS | Encounter Summary ---
:1990 Author Organization [facility] Address [address] [place] [address] Care Team Providers Name Role Phone Elsewhere, Pcp Primary Care Provider Unavailable Reason for Visit Reason Comments Medication Question Encounter Details Date Type Department Care Team Description 08/31/2021 Nurse Triage Department of [facility] Nabila Dumont Ga dicjenaro Question Medicine, [facility], in [place], [address] [facility], [place] [address] [place] [address] [place] [address] [phone] Social History Tobacco Use Types Packs/Day Years [...] you attend christian or Patient refused 2021 christianity services? 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 ALTERNATE DISPOSITION - CALL DOCTOR WITHIN 24 HOURS: * The patient's healthcare provider (doctor, SOLUTION STRATEGIST, or PA) may be able to handle [...] Radiology Matthew Jerome 2 Jennifer M.B.B.SSuma, Lilian [address] [place] [phone] Appointment Gastroenterology and Adrianne, 2 Hepatology Yue Burciaga M.D. [address] [place] [phone] Virtual Visit Transplant Matthew Jerome 2 Jennifer M.B.B.SSuma, Lilian [address] [place] [phone] Office Visit Gastroenterology and Matthew Jerome 2 Hepatology Elizabeth Rodriguez.B.B.SSuma, Lilian [address] [place] [phone] Appointment Radiology LuisMatthew abdul 2 Y M.B.B.SSuma, Lilian [address] [place] [address] [phone] Hospital Gastroenterology and Matthew Jerome Cirrhos is Alcoholic (HCC) 2 Encounter Hepatology Elizabeth Rodriguez.B.B.SSuma, Lilian [address] [place] [phone] Anesthesia Event Gastroenterology and Rl, 2 Hepatology Ervin Burgos M.D. 1025 [place] [phone] Surgery Gastroenterology and Mousa, Matthew ESOPHAG OGASTRODUODENOSCOPY 2 Hepatology Tyrell Rodriguez M.D. [address] [place] [phone] Scheduled Procedures Name Priority Associated Diagnoses Date/Time ESOPHAGOGASTRODUODENOSCOPY Cirrhosis Alc oholic (HCC) 03/20/2022 8:45 AM PROCESSES CHEMICAL DESIGN ENGINEER Hypertension Portal (HCC) documented as of this encounter Visit Diagnoses Not on filedocumented in this encounter Additional Health Concerns Infection Onset Date Last Indicated Resolved Time COVID19 08/29/2021 08/29/2021 09/18/2021 8:31 AM CDT documented as of this encounter Care Teams Furnace And Wash Equipment Operator Relationship Specialty Start Date End Date Elsewhere, Pcp PCP - General Family Medicine 03/10/20 11/30/21 [facility] [place] [facility] 08/25/21 Ervin Schroeder MD Referring Provider Family Medicine 03/24/[address] [place] [phone] documented as of this encounter
--- OUTSIDE RECORDS SUMMARY | 2022-02-16 12:28 | XMS_ITS | Encounter Summary ---
:1990 Author Organization [facility] Address [address] [place] [address] Care Team Providers Name Role Phone Elsewhere, Pcp Primary Care Provider Unavailable Reason for Visit Reason Comments Referral - Liver Txp Encounter Details Date Type Department Care Team Description 08/14/2021 Clinical Department of Matthew Jerome Referral - Angelica er Communication Gastroenterology in , M.B.B.S., [place], [place] M.DSuma 1025 [facility] 1025 [place] [phone] [place] [phone] Social History Tobacco Use Types Packs/Day Years [...] you attend alevism or Patient refused 2021 mormonism services? 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 Jerome wrapping 09/17. After speaking with patient, our hopes are that the remaining testing can be done in [place] the week prior (09/08). Mihaela, I have left the orders in our WQ and they say LTE [place] on them. Feel free to reroute the orders as neccessary! Let [place] [facility] know if you are unable to schedule testing 09/08 week and we can try scheduling the test in [place] instead. Our TTE echoes are going out [...] 6:55 PM CDT ----- Regarding: Liver transplant [id number] Dear team Kindly please submit [id number] for this patient. I had an initial visit with her, and I hope we can complete a liver transplant evaluation on her behalf. I will see her back for a wrap-up visit here in [place]. She will need full workup and consultations, especially Cardiology (abnormal echo 2020) and transplant psychiatry given her psych history. Thanks OM documented in this encounter Plan of Treatment Upcoming Encounters Date Type Specialty Care Team Description Telemedicine Transplant 2 Appointment Radiology Matthew Jerome 2, M.B.B.S., M.D. [address] [place] [phone] Appointment Gastroenterology and Adrianne, 2 Hepatology Yue Burciaga M.D. [address] [place] [phone] Virtual Visit Transplant LuisMatthew abdul 2 Tyrell Rodriguez M.D. [address] [place] [phone] Office Visit Gastroenterology and Matthew Jerome 2 Hepatology Tyrell Rodriguez M.D. [address] [place] [phone] Appointment Radiology LuisMatthew abdul 2 Tyrell Rodriguez M.D. [address] [place] [phone] Hospital Gastroenterology and Queenie Matthew Cirrhos is Alcoholic (HCC) 2 Encounter Hepatology Tyrell Rodriguez M.D. [address] [place] [phone] Anesthesia Event Gastroenterology and Rl, 2 Hepatology Ervin Burgos M.D. [address] [place] [phone] Surgery Gastroenterology and Queenie Matthew ESOPHAG OGASTRODUODENOSCOPY 2 Hepatology Tyrell Rodriguez M.D. 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
--- OUTSIDE RECORDS SUMMARY | 2022-02-16 12:28 | XMS_ITS | Encounter Summary ---
:1990 Author Organization [facility] Address [address] [place] [address] Care Team Providers Name Role Phone Elsewhere, Pcp Primary Care Provider Unavailable Reason for Visit Reason Comments Medical Information Encounter Details Date Type Department Care Team Description 08/30/2021 Nurse Triage Department of Joshua Resendiz, Medical Information Medicine, [facility], in [place], [place] [address] [place] [place] [phone] Social History Tobacco Use Types Packs/Day Years [...] you attend quaker or Patient refused 2021 mandaen services? Do [...] or the highest technical, or vocational p PedidosYa / PedidosJáram degree you have received? 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 https://www.cdc.gov/coronavirus/2019-ncov/vaccines/about-vaccines/index.html?s_c gd=87659:covid%20vaccine:sonja.ga:p:RG:GM:gen:PTN: Calling to request: information The recommended disposition is Manage symptoms at home. documented in this encounter Plan of Treatment Upcoming Encounters Date Type Specialty Care Team Description Telemedicine Transplant 2 Appointment Radiology Matthew Jerome 2 Vik RodriguezBLilian Bedolla [address] [place] [phone] Appointment Gastroenterology and Adrianne, 2 Hepatology Yue Burciaga M.D. [address] [place] [phone] Virtual Visit Transplant Matthew Jerome 2 Tyrell Rodriguez M.D. [address] [place] [phone] Office Visit Gastroenterology and [place] 2 Hepatology Tyrell Rodriguez M.D. [address] [place] [phone] Appointment Radiology Matthew Jerome 2 Joshua RodriguezBSumaBLilian Bedolla [address] [place] [phone] [facility] Gastroenterology and Matthew Jerome Cirrhos is Alcoholic (HCC) 2 Encounter Hepatology Joshua RodriguezBSumaBLilian Bedolla [address] [place] [phone] Anesthesia Event Gastroenterology and Rl, 2 Hepatology Ervin Burgos M.D. 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
--- OUTSIDE RECORDS SUMMARY | 2022-02-16 12:28 | XMS_ITS | Encounter Summary ---
:1990 Author Organization [facility] Address [address] [place] [address] Care Team Providers Name Role Phone Elsewhere, Pcp Primary Care Provider Unavailable Reason for Referral Transplant (Routine) - Closed Specialty Diagnoses / Procedures Referred By Contact Refer red To Contact Transplant [facility] / [facility] Lilian, M.P.H. [address] [place] [address] Referral ID Status Reason Start Date Expiration Date Visits Requ ested Visits Authorized [id number] Closed 08/26/2021 08/26/2022 1 1 ransplant (Routine) - Authorized Specialty Diagnoses / Procedures Referred By Contact Refer red To Contact Transplant Surgery / Diagnoses Cirrhosis Alcoholic (HCC) Abnormal Liver Function Test Ascites Pretransplant Recipient Evaluation Exam Preoperative Exam Warren Connor [facility] Transplant Lilian, M.P.H. [address] [place] [address] Referral ID Status Reason Start Date Expiration Date Visits V isits Requested Authorized [id number] Authorized 08/25/2021 08/25/2022 1 1 utpatient (Routine) - Closed Specialty Diagnoses / Procedures Referred By Contact Refer red To Contact Diagnoses Cirrhosis Alcoholic (HCC) Abnormal Liver Function Test Ascites Pretransplant Recipient Evaluation Exam Preoperative Exam Warren Connor M.D., [facility] Procedures BMD Bone Density Spine Hips M.P.H. [address] [place] [address] Referral ID Status Reason Start Date Expiration Date Visits Requ ested Visits Authorized [id number] Closed 08/25/2021 08/25/2022 1 1 ransplant (Routine) - Closed Specialty Diagnoses / Procedures Referred By Contact Refer red To Contact Transplant Surgery / Diagnoses Cirrhosis Alcoholic (HCC) Abnormal Liver Function Test Ascites Pretransplant Recipient Evaluation Exam Preoperative Exam Warren Connor [facility] Transplant M.Jeri, M.P.H. [address] [place] [address] Referral ID Status Reason Start Date Expiration Date Visits Requ ested Visits Authorized [id number] Closed 08/25/2021 08/25/2022 1 1 ransplant (Routine) - Closed Specialty Diagnoses / Procedures Referred By Contact Refer red To Contact Transplant Surgery / Diagnoses Cirrhosis Alcoholic (HCC) Abnormal Liver Function Test Ascites Pretransplant Recipient Evaluation Exam Preoperative Exam Warren Connor [facility] Transplant M.Jeri, M.P.H. [address] [place] [address] Referral ID Status Reason Start Date Expiration Date Visits Requ ested Visits Authorized [id number] Closed 08/25/2021 08/25/2022 1 1 utpatient (Routine) - Closed Specialty Diagnoses / Procedures Referred By Contact Refer red To Contact Preventive Medicine Diagnoses Cirrhosis Alcoholic (HCC) Abnormal Liver Function Test Ascites Pretransplant Recipient Evaluation Exam Preoperative Exam Warren Connor [facility] Lilian, M.P.H. [address] [place] [address] Referral ID Status Reason Start Date Expiration Date Visits Requ ested Visits Authorized [id number] Closed 08/25/2021 08/25/2022 1 1 utpatient (Routine) - Closed Specialty Diagnoses / Procedures Referred By Contact Refer red To Contact Pulmonary Medicine / Diagnoses Cirrhosis Alcoholic (HCC) Abnormal Liver Function Test Ascites Pretransplant Recipient Evaluation Exam Preoperative Exam Warren Connor [facility] Nicotine Dependence Lilian, M.P.H. [address] [place] [address] Referral ID Status Reason Start Date Expiration Date Visits Requ ested Visits Authorized [id number] Closed 08/25/2021 08/25/2022 1 1 utpatient (Routine) - Closed Specialty Diagnoses / Procedures Referred By Contact Refer red To Contact Diagnoses Cirrhosis Alcoholic (HCC) Abnormal Liver Function Test Ascites Pretransplant Recipient Evaluation Exam Preoperative Exam Warren Connor M.D., [facility] Procedures ECG 12 Lead M.P.H. [address] [place] [address] Referral ID Status Reason Start Date Expiration Date Visits Requ ested Visits Authorized [id number] Closed 08/25/2021 08/25/2022 1 1 utpatient (Routine) - Closed Specialty Diagnoses / Procedures Referred By Contact Refer red To Contact Diagnoses Cirrhosis Alcoholic (HCC) Abnormal Liver Function Test Ascites Pretransplant Recipient Evaluation Exam Preoperative Exam Warren Connor M.D., [facility] Procedures Short renal clearance: Iothalamate (Renal Studies Unit) M.P.H. [address] [place] [address] Referral ID Status Reason Start Date Expiration Date Visits Requ ested Visits Authorized [id number] Closed 08/25/2021 08/25/2022 1 1 Specialty Diagnoses / Procedures Referred By Contact Refer red To Contact [facility] Ten[facility] [address] [place] [address] Referral ID Status Reason Start Date Expiration Date Visits Requ ested Visits Authorized utpatient (Routine) - Closed Specialty Diagnoses / Procedures Referred By Contact Refer red To Contact Pharmacy Diagnoses Cirrhosis Alcoholic (HCC) Abnormal Liver Function Test Ascites Pretransplant Recipient Evaluation Exam Preoperative Exam Warren Connor M.D., [facility] M.P.H. [address] [place] [address] Referral ID Status Reason Start Date Expiration Date Visits Requ ested Visits Authorized [id number] Closed 08/25/2021 08/25/2022 1 1 ransplant (Routine) - Closed Specialty Diagnoses / Procedures Referred By Contact Refer red To Contact Transplant Surgery / Diagnoses Cirrhosis Alcoholic (HCC) Abnormal Liver Function Test Ascites Pretransplant Recipient Evaluation Exam Preoperative Exam Warren Connor [facility] Transplant Lilian, M.P.H. [address] [place] [address] Referral ID Status Reason Start Date Expiration Date Visits Requ ested Visits Authorized [id number] Closed 08/25/2021 08/25/2022 1 1 ransplant (Routine) - Closed Specialty Diagnoses / Procedures Referred By Contact Refer red To Contact Transplant Surgery / Diagnoses Cirrhosis Alcoholic (HCC) Abnormal Liver Function Test Ascites Pretransplant Recipient Evaluation Exam Preoperative Exam Warren Connor [facility] Transplant Lilian, M.P.H. [address] [place] [address] Referral ID Status Reason Start Date Expiration Date Visits Requ ested Visits Authorized [id number] Closed 08/25/2021 08/25/2022 1 1 ransplant (Routine) - Closed Specialty Diagnoses / Procedures Referred By Contact Refer red To Contact Transplant Surgery / Diagnoses Cirrhosis Alcoholic (HCC) Abnormal Liver Function Test Ascites Pretransplant Recipient Evaluation Exam Preoperative Exam Warren Connor [facility] Transplant Lilian, M.P.H. [address] [place] [address] Referral ID Status Reason Start Date Expiration Date Visits Requ ested Visits Authorized [id number] Closed 08/25/2021 08/25/2022 1 1 ransplant (Routine) - Closed Specialty Diagnoses / Procedures Referred By Contact Refer red To Contact Transplant Surgery / Diagnoses Cirrhosis Alcoholic (HCC) Abnormal Liver Function Test Ascites Pretransplant Recipient Evaluation Exam Preoperative Exam Warren Connor [facility] Transplant Lilian, M.P.H. [address] [place] [address] Referral ID Status Reason Start Date Expiration Date Visits Requ ested Visits Authorized [id number] Closed 08/25/2021 08/25/2022 1 1 ransplant (Routine) - Closed Specialty Diagnoses / Procedures Referred By Contact Refer red To Contact Transplant Surgery / Diagnoses Cirrhosis Alcoholic (HCC) Abnormal Liver Function Test Ascites Pretransplant Recipient Evaluation Exam Preoperative Exam Warren Connor [facility] Transplant Lilian, M.P.H. [address] [place] [address] Referral ID Status Reason Start Date Expiration Date Visits Requ ested Visits Authorized [id number] Closed 08/25/2021 08/25/2022 1 1 Reason for Visit Reason Comments Referral - Liver Txp Phone screen Appointment Request (Routine) - Pending Review Specialty Diagnoses / Procedures Referred By Contact Refer red To Contact Transplant Diagnoses [facility] Procedures Referral ID Status Reason Start Date Expiration Date Visits V isits Requested Authorized [id number] Pending 08/21/2021 08/21/2022 1 1 Review Encounter Details Date Type Department Care Team Description 08/25/2021 Nurse Only Laney Canela Re ferral - Liver Txp [facility] M.A.N., R.N., (Phone screen) and Clinical Regeneration [facility] in [facility] [phone] [address] [facility] (Work) [place] [address] Social History Tobacco Use Types Packs/Day [...] you attend christianity or Patient refused 2021 scientology services? Do [...] the highest technical, or vocational p [facility] degree you have received? 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 Roge Schroeder Facility: [facility] Location: [facility] [employer] Electrician: Kerry Naranjo NP /Dr. Jerome Facility: [facility] Location: [facility] Fax: Preferred lab: [facility] Lab Location: [place] Fax: Patient online messaging interest/discussed? [x] Yes [] No Comment: Additional orders needed at time of evaluation: hx eating disorder [employer] Operations Man Utilized: [] Yes [x] No Prior to starting the phone screen process, the following information was verbalized to educate the patient on the Evaluation Process. Received authorization for liver transplant referral. Information for Liver Transplant Candidates [id number] was reviewed with the patient via telephone call. Confirmed her interest in pursuing a liver transplant evaluation at [facility]. The patient verbalized understanding of the [...] Radiology Matthew Jerome 2 YTyrell, Lilian [address] [place] [phone] Appointment Gastroenterology and [place], 2 Hepatology Yue Burciaga M.D. [address] [place] [phone] Virtual Visit Transplant Queenie Matthew 2 YTyrell M.D. [address] [place] [phone] Office Visit Gastroenterology and [facility] 2 Hepatology Tyrell Rodriguez M.D. [address] [place] [phone] Appointment Radiology Queenie Matthew 2 YTyrell M.D. [address] [place] [phone] Hospital Gastroenterology and [facility] Cirrhos is Alcoholic (HCC) 2 Encounter Hepatology Tyrell Rodriguez M.D. [address] [place] [phone] Anesthesia Event Gastroenterology and Rl, 2 Hepatology Ervin Burgos M.D. 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 Hypertension Portal (HCC) Scheduled Referrals Name Type Priority Associated Order Schedule Diagnoses Transplant - Outpatient Referral Routine Cirrhosis Alcoholic E xpected: Financial assessment (HCC) 09/22/2021 consult (clinic) Abnormal Liver (Approxim ate), Function Test Expires: Ascites 12/01/2022 Pretransplant Recipient Evaluation Exam Preoperative Exam Transplant - Lung Outpatient Referral Routine Cirrhosis Alcoho lic Expected: transplant consult ([facility]) 09/22/2021 ([facility]) Abnormal Liver (Approximate) , Function Test Expires: Ascites 12/01/2022 Pretransplant Recipient Evaluation Exam Preoperative Exam Transplant - Medical Outpatient Referral Routine Cirrhosis Alc oholic Expected: nutrition therapy ([facility]) 09/22/2021 consult (clinic) Abnormal Liver (Approxim ate), Function Test Expires: Ascites 12/01/2022 Pretransplant Recipient Evaluation Exam Preoperative Exam Transplant - Social Outpatient Referral Routine Cirrhosis Alco holic Expected: work consult ([facility]) 09/22/2021 ([facility]) Abnormal Liver (Approximate) , Function Test Expires: Ascites 12/01/2022 Pretransplant Recipient Evaluation Exam Preoperative Exam Transplant - Surgery Outpatient Referral Routine Cirrhosis Alc oholic Expected: consult (clinic) ([facility]) 09/22/2021 Abnormal Liver (Approximate) , Function Test Expires: Ascites 12/01/2022 Pretransplant Recipient Evaluation Exam Preoperative Exam Pharmacy - Outpatient Referral Routine Cirrhosis Alcoholic E xpected: Medication therapy ([facility]) 09/22/2021 management - Abnormal Liver (Approximate) , transplant consult Function Test Expires: (clinic) Ascites 12/01/2022 Pretransplant Recipient Evaluation Exam Preoperative Exam Transplant - Liver Outpatient Referral Routine Cirrhosis Alcoh olic Expected: pre education visit ([facility]) 09/22/2021 ([facility]) Abnormal Liver (Approximate) , Function Test Expires: Ascites 12/01/2022 Pretransplant Recipient Evaluation Exam Preoperative Exam Nicotine Dependence Outpatient Referral Routine Cirrhosis Alco holic Expected: - Counseling consult ([facility]) 10/01/2021 (clinic) Abnormal Liver (Approximate) , Function Test Expires: Ascites 12/01/2022 Pretransplant Recipient Evaluation Exam Preoperative Exam Preventive Medicine Outpatient Referral Routine Cirrhosis Alco holic Expected: - Preventive ([facility]) 10/01/2021 services consult Abnormal Liver (Approxim ate), (clinic) Function Test Expires: Ascites 12/01/2022 Pretransplant Recipient Evaluation Exam Preoperative Exam Transplant - Outpatient Referral Routine Cirrhosis Alcoholic E xpected: Psychiatry and ([facility]) 09/22/2021 Psychology consult Abnormal Liver (Approx imate), (clinic) Function Test Expires: Ascites 12/01/2022 Pretransplant Recipient Evaluation Exam Preoperative Exam Transplant - Outpatient Referral Routine Cirrhosis Alcoholic E xpected: Psychiatry and ([facility]) 09/22/2021 Psychology consult Abnormal Liver (Approx imate), (clinic) Function Test Expires: Ascites 12/01/2022 Pretransplant Recipient Evaluation Exam Preoperative Exam Transplant - Outpatient Referral Routine Cirrhosis Alcoholic E xpected: Psychiatry and ([facility]) 09/22/2021, Psychology consult Abnormal Liver Expires [...] Mineral Density (BMD) analysis perf ormed on [employer] with serial number [id number]. ? FINDINGS: Left Hip: Femur Neck: BMD [...] Mineral Density (BMD) analysis perf ormed on [employer] with serial number [id number]. FINDINGS: Left Hip: Femur Neck: BMD = [...] CDT) P athologist Signature FVC 4.04 [facility] FVC% 111 % [facility] FVCLLN 2.88 L [facility] FEV1 3.62 L [facility] FEV1% 118 % [facility] [id number] 2.45 L [facility] FEV1/FVC 90 % [facility] SU[address] FEV1/FVCLLN 73 % [facility] FEF 25-75 5.30 L/sec [facility] [id number]% 154 % [facility] [address] [id number] 2.20 L/sec [facility] SVC 4.19 L [facility] SU[address] RV 1.17 L [facility] SU[address] RVULN 2.33 L [facility] TLC 5.36 L [facility] SU[address] TLC% 111 % [facility] SUITE TLCLLN 3.47 L [facility] SUITE RV/TLC 22 % [facility] SUITE RV/TLC% 72 % [facility] SUITE RV/TLCuln 44 % [facility] SUITE DLCO 16.63 ml/min/mmHg [facility] DLCO% 77 % [facility] DLCOlln 15.76 ml/min/mmHg [facility] SUITE DLCOc 20.09 ml/min/mmHg [facility] SUITE DLCOc% 94 % [facility] SUITE VA 5.32 L [facility] SU[facility] VA% 115 % [facility] VAlln 3.76 L [facility] Height 159.00 [facility] Weight in Kg 59.70 [facility] BMI 23.6 [facility] Specimen (Source) Anatomical Collection Method Collection Time Re ceived Time Location / / Volume Laterality 10/07/2021 2:32 PM CDT Impressions [facility] - 10/10/2021 8:25 AM C DT TECHNICAL [...] M.D., M.P.H. PFT ORDERABLES Performing Organization Address City/[facility]/ZIP Code Phon e Number [facility] NA Ethyl Glucuronide Screen with Reflex, Urine (09/30/2021 8:23 AM CDT) [facility] Method Time Signature Ethyl Negative Cutoff: 09/30/2021 [facility] Glucuronide Scrn 500 ng/mL 11:12 AM CDT w/Reflex, U Comment: ----ADDITIONAL INFORMATION---- This test was developed and its performa nce characteristics determined by [facility] in a manner consistent with CLIA requirements. This test has not been cleared or approved by the [place] and Drug Administration. Specimen Anatomical Collection Method Collection Time Receive d Time (Source) Location / / Volume Laterality Urine (Urine, 09/30/2021 8:23 AM 10/01/19 22 9:59 Midstream) CDT AM CDT Warren Connor M.D., M.P.H. LAB URINE ORDERABLES Performing Organization Address City/[facility]/ZIP Code Phon e Number [facility] [address] [place], [place] [address] [facility] [place] [address] Laboratory Medicine and Pathology [address] [place] (ABNORMAL) Bacterial Culture, Aerobic + Susc, Urine (09/30/2021 8:23 AM CDT) Component Value Ref Test Analysis Performed At [facility] Method Time Signature Urine Culture STAPHYLOCOCCUS EPIDERMIDIS 2 DTL 10,000-100,000 cfu/mL 2:00 PM CDT (A) Specimen Anatomical Collection Method Collection Time Receive d Time (Source) Location / / Volume Laterality Urine (Urine, 09/30/2021 8:23 AM 10/01/19 22 8:57 Midstream) CDT AM CDT Comment: Specimen Source Site: Urine Organism Antibiotic Method Susceptibility Staphylococcus epidermidis Oxacillin SUSCEPTIBILITY, SNAA > 2 mcg/mL: Resistant (MCG/ML) Comment: Use [...] e Number [facility] - [address] [place] [phone] [facility] [place] [address] [facility] 200 [facility] (ABNORMAL) Drug Abuse Survey with Confirmation, Panel 9, Urine (09/30/2021 8:23 AM CDT) Component Value Ref Test Analysis Performed At [facility] Range Method Time Signature Alcohol Negative [...] Negative Cutoff: 25 ng/mL 09/30/2021 11:12 AM [facility] CDT Tetrahydrocannabinol Presumptive Positive Cutoff: 50 ng/mL 09/30/2021 11:12 AM [facility] (A) CDT Comment: This immunoassay [...] characteristics were determi foreign by [facility] in a manner consistent with CLIA [...] Code Phon e Number [facility] [address] [place] [phone] [facility] [place] [address] Laboratory Medicine and Pathology [address] [place] Urinalysis with Microscopic: Urine, Midstream (09/30/2021 8:23 AM CDT) [facility] Method Time Signature Source Urine, Urine, [...] M.P.H. LAB URINE ORDERABLES Performing Organization Address [facility] Phon e Number [facility] - [address] [place] [address] Transplant ABO Confirmation (09/30/2021 7:43 AM CDT) P athologist Signature Transplant ABO B Pos 09/30/2021 ETRM Confirmation 11:13 AM CDT Specimen Anatomical Collection Method Collection Time Receive d Time (Source) Location / / Volume Laterality Blood (Blood, 09/30/2021 7:43 AM 10/01/19 22 Venous) CDT 10:06 AM CDT Warren Connor M.D., M.P.H. LAB BLOOD BANK TEST OR DERABLES Performing Organization Address City/[facility] Phon e Number [facility] [place] [place] - 200 [place], [place] [address] [facility] ETRM [place] [id number] [address] (ABNORMAL) Hemoglobin A1c (09/30/2021 7:39 AM [...] e Number [facility] - [address] [place] [phone] [facility] [place] [address] [facility] [address] (ABNORMAL) CBC no call back, reflex T/S HGB <8 (09/30/2021 7:39 AM CDT) [facility] gist Method Time Signature Hemoglobin 8.9 [...] LAB BLOOD NON ADD-ON Performing Organization Address City/[facility] Code Phon e Number [facility] - [address] [place] [phone] [facility] [place] [address] [facility] 200 [facility] (ABNORMAL) Xfpaw-[id number] Proteotype S/Z by LC-MS/MS (09/30/2021 7:38 AM CDT) athologist Signature Mposg-1-Vhyvuj 211 (H) 100 - 190 10/01/2021 SDSC ypsin, S mg/dL 9:47 AM CDT Comment: ----ADDITIONAL INFORMATION---- Method: Nephelometry Interpretation S Mutation: Negative 10/02/2021 3:3 2 PM CDT SDS Z Mutation: Negative Results most consistent with MM phenotype. Comment: ----ADDITIONAL INFORMATION---- This test was developed and its performa nce characteristics determined by [facility] in a manner consistent with CLIA [...] Code Phon e Number [facility] [address] [place], [place] [address] [facility] [place] [address] Laboratory Medicine and Pathology [address] [place] Phosphatidylethanol (Peth), whole blood- Sent Out Lab (09/30/2021 7:38 AM CDT) Component Value Ref Range Test Analysis Performed Pathologis t Method Time At Signature Phosphatidylethanol NEGATIVE NEGATIVE 10/03/2021 [facility] (PEth) ng/mL 10:27 PM CDT Comment: Analyzed compound: PEth 16:0/18:1. ? 8-epxljfxwr-0-fwuyfm-hi-uhstewt-3 -phosphoethanol. ? Analysis performed by Liquid Chromatogra [...] and its performa nce characteristics determined by [employer]. It has not been c leared or approved by the Food and Drug Administration. Specimen Anatomical Collection Method Collection Time Receive d Time (Source) Location / / Volume Laterality Blood (Blood, 09/30/2021 7:38 AM 10/01/19 22 1:51 Venous) CDT PM CDT Warren Connor M.D., M.P.H. LAB BLOOD NON ADD-ON Performing Organization Address City/State/ZIP Code Phon e Number [employer] [address] [facility] [address] [place], [place] [address] [employer], [employer] [place], [place] [id number] [place] [address] D hCG (Human Chorionic Gonadotropin), Quantitative, (09/30/2021 [...] [facility] - [address] [place], [place] [address] [place] [address] [facility] [address] (ABNORMAL) AFP (Alpha-Fetoprotein), Tumor Marker (09/30/2021 7:38 AM CDT) athologist Signature Alpha-Fetoprote 14 (H) ng/mL 09/30/2021 [facility] in, Tumor 4:01 PM CDT Marker, S Comment: ----REFERENCE VALUE---- <8.4 Reference values are for non- subjects only; production of AFP elevates values in women. ----ADDITIONAL INFORMATION---- In this Richie [place] assay AFP concen trations are <8.4 ng/mL [...] method is an immunoenzymatic assay manufactured by [employer]. and is tested on the Richie [place] [employer]iance Unicel DxI 800. Values obtained with different [...] M.P.H. LAB BLOOD ADD-ON Performing Organization Address [facility] Phon e Number [facility] [address] [place] [address] [address] [place] [address] Laboratory Medicine and Pathology [address] [place] [address] Dr. CHAPPELL Vitamin E Level (09/30/2021 7:38 AM CDT) athologist Signature A-Tocopherol, 6.3 5.5 - 17.0 10/01/2021 [facility] Vitamin E mg/L 1:44 PM CDT Comment: ----ADDITIONAL INFORMATION---- This test was developed and its performa nce characteristics determined by [facility] in a manner consistent with CLIA requirements. This test has not been cleared or approved by the U.S. Meggan d and Drug Administration. Specimen Anatomical Collection Method Collection Time Receive d Time (Source) Location / / Volume Laterality Blood (Blood, 09/30/2021 7:38 AM 10/01/19 22 Venous) CDT 11:15 AM CDT Warren Connor M.D., M.P.H. LAB BLOOD NON ADD-ON Performing Organization Address [facility] Phon e Number [address] [place] [address] 05 [facility] [place] [address] Laboratory Medicine and Pathology [address] [place] [address] Dr. CHAPPELL 25-Hydroxyvitamin D2 and D3 (09/30/2021 [...] performa nce characteristics determined by [facility] in a manner consistent with CLIA [...] Code Phon e Number [facility] [address] [place], [place] [address] [place] [address] Laboratory Medicine and Pathology [address] CHAPPELL (ABNORMAL) Vitamin A Level (09/30/2021 7:38 AM CDT) athologist Signature Vitamin A 9.5 (L) 32.5 - 78.0 10/01/2021 SDS mcg/dL 11:30 AM CDT Comment: In this sample, the retinol (vitamin A) level indicates a severe deficiency. ----ADDITIONAL INFORMATION---- This test was developed and its performa nce characteristics determined by [facility] in a manner consistent with CLIA [...] Code Phon e Number [facility] [address] [place], [place] [address] [address] [facility] [place] [address] Laboratory Medicine and Pathology [address] CHAPPELL HLA Class II Typing by Low Resolution, Recipient (09/30/2021 7:38 AM CDT) [facility] Method Time Signature DRB1 - 1 DR4 Not 10/10/2021 D[facility] Equivalent Applicable 10:12 AM CDT DRB1 - 2 DR16 Not 10/10/2021 [facility] Equivalent Applicable 10:12 AM CDT DRB1 - 1 DRB1*04:01 Not 10/10/2021 D[facility] Molecular Applicable 10:12 AM CDT DRB1 - 2 DRB1*16:02 Not 10/10/2021 [facility] Molecular Applicable 10:12 AM CDT [id number] - 1 DR53 Not 10/10/2021 [facility] Equivalent Applicable 10:12 AM CDT ESK968 - 2 DR51 Not 10/10/2021 [facility] Equivalent Applicable 10:12 AM CDT VGH777 - 1 DRB4*01:03 Not 10/10/2021 D[facility] Molecular Applicable 10:12 AM CDT EEL075 - 2 DRB5*02:02 Not 10/10/2021 D[facility] Molecular [...] performa nce characteristics determined by [facility] in a manner co nsistent with CLIA requirements. This test has not been norah ared or approved by the U.S. Food and Drug Administration. CLIA: [id number] ??CLIA Retoucher: THAIS CAR MD,PhD Specimen Anatomical Collection Method Collection Time Receive d Time (Source) Location / / Volume Laterality Blood (Blood, 09/30/2021 7:38 AM 10/01/19 22 8:12 Venous) CDT AM CDT Warren Connor M.D., M.P.H. LAB HLA ORDERABLES Performing Organization Address City/State/ZIP Code Phon e Number [facility] - [address] [place] [address] [facility] DBB[address] [place] [address] Laboratories-[facility] [address] HLA Class I Typing by Low Resolution, Recipient (09/30/2021 7:38 AM CDT) [facility] Method Time Signature A - 1 [...] performa nce characteristics determined by [facility] in a manner co nsistent with CLIA requirements. This test has not been norah ared or approved by the U.S. Food and Drug Administration. CLIA: [id number] ??CLIA Retoucher: THAIS CAR MD,PhD Specimen Anatomical Collection Method Collection Time Receive d Time (Source) Location / / Volume Laterality Blood (Blood, 09/30/2021 7:38 AM 10/01/19 8:12 Venous) CDT AM CDT Warren Connor M.D., M.P.H. LAB HLA ORDERABLES Performing Organization Address City/State/ZIP Code Phon e Number [facility] - [address] [place], [place] [address] [facility] DBB[address] [place] [address] [facility] [address] Folate (09/30/2021 7:38 AM CDT) P athologist Signature Folate, S >20.0 >=4.0 mcg/L 09/30/2021 9:31 DTL AM CDT Specimen Anatomical Collection Method Collection Time Receive d Time (Source) Location / / Volume Laterality Blood (Blood, 09/30/2021 7:38 AM 10/01/19 22 8:07 Venous) CDT AM CDT Warren Connor M.D., M.P.H. LAB BLOOD ADD-ON Performing Organization Address City/[facility] Phon e Number [facility] - [address] [place], [place] [address] [facility] [place] [address] Laboratories-[address] (ABNORMAL) Parathyroid Hormone (PTH) (09/30/2021 7:38 [...] M.P.H. LAB BLOOD ADD-ON Performing Organization Address City/[facility] Phon e Number [facility] - [address] [place], [place] [address] [place] [address] T4 (Thyroxine), Free (09/30/2021 7:38 AM CDT) P athologist Signature T4 (Thyroxine), 1.3 0.9 - 1.7 09/30/2021 DTL Free, S ng/dL 10:47 AM CDT Specimen Anatomical Collection Method Collection Time Receive d Time (Source) Location / / Volume Laterality Blood (Blood, 09/30/2021 7:38 AM 10/01/19 22 8:07 Venous) CDT AM CDT Warren Connor M.D., M.P.H. LAB BLOOD ADD-ON Performing Organization Address City/[facility] Phon e Number [facility] [address] (ABNORMAL) S-TSH (Thyroid-Stimulating Hormone - Sensitive) [...] M.P.H. LAB BLOOD ADD-ON Performing Organization Address [facility] Phon e Number [facility] - [address] [place] [address] Type and Screen (with reflex Antibody [...] BANK TEST OR DERABLES Performing Organization Address [facility] Phon e Number [place] [address] 05 [facility] [place] [address] QuantiFERON-Tb Gold Plus, Blood (09/30/2021 7:38 [...] Result 0.00 IU/mL 10/01/2021 10:03 AM CDT [facility] Specimen Anatomical Collection Method Collection Time Receive d Time (Source) Location / / Volume Laterality Blood (Blood, 09/30/2021 7:38 AM 10/01/19 9:36 Venous) CDT AM CDT Narrative [facility] JARED R - 10/01/2021 10:03 AM CDT Specimen Information: Specimen ID: [id number] Specimen Type: Blood Specimen Collection Start Date: 10/01/19 ??7:38 AM Specimen Received Date: 09/30/2021 ??9:3 6 AM Specimen ID: [id number] Specimen Type: Blood Specimen Collection Start Date: 10/01/19 ??7:38 AM Specimen Received Date: 09/30/2021 ??9:3 6 AM Specimen ID: [id number] Specimen Type: Blood Specimen Collection Start Date: 10/01/19 ??7:38 AM Specimen Received Date: 09/30/2021 ??9:3 6 AM Specimen ID: [id number] Specimen Type: Blood Specimen Collection Start Date: 10/01/19 ??7:38 AM Specimen Received Date: 09/30/2021 ??9:3 6 AM Warren Connor M.D., M.P.H. LAB MICROBIOLOGY - BLO OD ORDERABLES Performing Organization Address City/[facility] Phon e Number [facility] [address] [place] [address] 05 [facility] [place] [address] Laboratory Medicine and Pathology [address] [place] [address] Dr. CHAPPELL HCV RNA Detect / Quant, Serum (09/30/2021 7:38 AM CDT) [facility] gist Method Time Signature HCV RNA Undetected Undetected 10/01/2021 [facility] Detect/Quant, IU/mL 12:31 PM S CDT Comment: Result in log IU/mL is Undetected. ----ADDITIONAL INFORMATION---- The quantification range of this assay i s 15 to 100,000,000 IU/mL (1.18 log to 8.00 log IU/mL). Testing was performe d using the john HCV test ([employer] with the john 6800 System. Specimen Anatomical Collection Method Collection Time Receive d Time (Source) Location / / Volume Laterality Blood (Blood, 09/30/2021 7:38 AM 10/01/19 Venous) CDT 10:15 AM CDT Warren Connor M.D., M.P.H. LAB MICROBIOLOGY - BLO OD ORDERABLES Performing Organization Address City/[facility] Phon e Number [facility] [address] [place], [place] [address] [facility] [facility] [place] [address] Laboratory Medicine and Pathology [address] [place] [address] Dr. CHAPPELL HCV Ab Scrn w/Reflex to HCV PCR, Serum (09/30/2021 7:38 AM CDT) athologist Signature HCV Ab Screen, Negative Negative 09/30/2021 [facility] S 2:11 PM CDT Comment: Lenuqr-mb-uugorl ratio is <1.00 . Specimen Anatomical Collection Method Collection Time Receive d Time (Source) Location / / Volume Laterality Blood (Blood, 09/30/2021 7:38 AM 10/01/19 Venous) CDT 10:15 AM CDT Warren Connor M.D., M.P.H. LAB MICROBIOLOGY - BLO OD ORDERABLES Performing Organization Address [facility] Phon e Number [address] [place] [address] Laboratory Medicine and Pathology [address] [place] [address] Dr. CHAPPELL HBc Total Ab Scrn, S (09/30/2021 7:38 AM CDT) athologist Signature HBc Total Ab Negative Negative 09/30/2021 [facility] Scrn, S 2:11 PM CDT Specimen Anatomical Collection Method Collection Time Receive d Time (Source) Location / / Volume Laterality Blood (Blood, 09/30/2021 7:38 AM 10/01/19 Venous) CDT 10:15 AM CDT Warren Connor M.D., M.P.H. LAB MICROBIOLOGY - BLO OD ORDERABLES Performing Organization Address [facility] Phon e Number [address] [place] [address] Laboratory Medicine and Pathology [address] [place] [address] Dr. CHAPPELL HBs Antibody Scrn, S (09/30/2021 7:38 AM CDT) athologist Signature HBs Antibody Positive 09/30/2021 [facility] Scrn, S 2:20 PM CDT Comment: Patient is considered to be immune to in fection with HBV. ----REFERENCE VALUE---- Unvaccinated: Negative Vaccinated: Positive HBs Antibody, Quantitative, S 15.2 mIU/mL 09/30/2021 2:20 PM CDT [facility] Comment: ----REFERENCE VALUE---- Unvaccinated: <5.0 Vaccinated: >=12.0 Specimen Anatomical Collection Method Collection Time Receive d Time (Source) Location / / Volume Laterality Blood (Blood, 09/30/2021 7:38 AM 10/01/19 Venous) CDT 10:15 AM CDT Warren Connor M.D., M.P.H. LAB MICROBIOLOGY - BLO OD ORDERABLES Performing Organization Address [facility] Phon e Number [facility] [address] [place], [place] [address] [facility] [facility] [place] [address] Laboratory Medicine and Pathology [address] [place] [address] Dr. CHAPPELL Hepatitis A IgM Ab, Serum (09/30/2021 7:38 AM CDT) athologist Signature Hepatitis A Negative Negative 09/30/2021 [facility] IgM Ab, S 1:17 PM CDT [...] - BLO OD ORDERABLES Performing Organization Address [facility] Phon e Number [address] [place] [address] 05 [place] [address] Laboratory Medicine and Pathology [address] [place] [address] Dr. CHAPPELL Hepatitis A IgG Ab, Serum [...] - BLO OD ORDERABLES Performing Organization Address [facility]/ZIP [facility] Phon e Number [facility] [address] [place], [place] [address] 05 [facility] [place] [address] Laboratory Medicine and Pathology [address] [place] [address] Dr. CHAPPELL HIV-1/-2 Ag and Ab Screen, Plasma (09/30/2021 7:38 AM CDT) athologist Signature HIV-1/-2 Ag Negative Negative 09/30/2021 [facility] and Ab Screen, 1:16 PM CDT [...] - BLO OD ORDERABLES Performing Organization Address [facility] Phon e Number [facility] [address] [place], [place] [address] [facility] [place] [address] Laboratory Medicine and Pathology [address] [place] [address] Dr. CHAPPELL Phosphorus Inorganic (09/30/2021 7:38 AM CDT) athologist Signature Phosphorus 3.4 2.5 - 4.5 09/30/2021 DTL (Inorganic), S mg/dL 10:47 AM CDT Specimen Anatomical Collection Method Collection Time Receive d Time (Source) Location / / Volume Laterality Blood (Blood, 09/30/2021 7:38 AM 10/01/19 22 8:07 Venous) CDT AM CDT Warren Connor M.D., M.P.H. LAB BLOOD ADD-ON Performing Organization Address City/[facility]/ZIP Code Phon e Number [facility] - [address] [place], [place] [address] [facility] [place] [address] [facility] [address] Lipid Panel (09/30/2021 7:38 [...] [facility] - [address] [place], [place] [address] [facility] [place] [address] [facility] [address] (ABNORMAL) GGT (Gamma-Glutamyltransferase) [...] [facility] - [address] [place], [place] [address] [facility] [place] [address] [facility] [address] [facility] (ABNORMAL) Hepatic Function Panel (09/30/2021 7:38 AM CDT) [facility] gist Method Time Signature Bilirubin, Total, [...] AM 10/01/19 8:08 Venous) CDT AM CDT Warern Connor M.D., M.P.H. LAB BLOOD ADD-ON Performing Organization Address City/State/[facility] Code Phon e Number [facility] - 200 [place], [place] [address] [facility] [place] [address] [facility] [address] [facility] (ABNORMAL) Basic Metabolic Panel (09/30/2021 7:38 AM [...] 09/30/2021 DTL Black/ mL/min/BSA 10:29 AM CDT [place] Comment: ----ADDITIONAL INFORMATION---- Estimated GFR calculated using [...] [facility] - [address] [place], [place] [address] [facility] [place] [address] [facility] [address] Rubella Antibodies, IgG (09/30/2021 7:37 AM CDT) athologist Signature Rubella Ab, Positive 09/30/2021 [facility] IgG, S 11:25 AM CDT Comment: Results suggest response to immunization or prior exposure to the virus. ----REFERENCE VALUE---- Vaccinated: Positive (>=1.0 AI) Unvaccinated: Negative (<=0.7 AI) Rubella IgG Antibody Index 5.9 09/30/2021 11 :25 AM CDT [facility] Specimen Anatomical Collection Method Collection Time Receive d Time (Source) Location / / Volume Laterality Blood (Blood, 09/30/2021 7:37 AM 10/01/19 22 Venous) CDT 10:37 AM CDT Warren Connor M.D., M.P.H. LAB MICROBIOLOGY - BLO OD ORDERABLES Performing Organization Address [facility] Phon e Number [facility] [address] [place] [address] 05 [place] [address] Laboratory Medicine and Pathology [address] [place] [address] Dr. CHAPPELL Measles (Rubeola) Ab, IgG (09/30/2021 7:37 AM CDT) athologist Signature Measles Positive 09/30/2021 [facility] (Rubeola) Ab, 11:25 AM CDT IgG, S Comment: Results suggest response to immunization or prior exposure to the virus. ----REFERENCE VALUE---- Vaccinated: Positive (>=1.1 AI) Unvaccinated: Negative (<=0.8 AI) Measles IgG Antibody Index >8.0 09/30/2021 11 :25 AM CDT [facility] Specimen Anatomical Collection Method Collection Time Receive d Time (Source) Location / / Volume Laterality Blood (Blood, 09/30/2021 7:37 AM 10/01/19 22 Venous) CDT 10:37 AM CDT Warren Connor M.D., M.P.H. LAB MICROBIOLOGY - BLO OD ORDERABLES Performing Organization Address [facility] Phon e Number [facility] [address] [place], [place] [address] [facility] [place] [address] Laboratory Medicine and Pathology [address] [place] [address] Dr. CHAPPELL (ABNORMAL) Zinc (09/30/2021 7:37 AM CDT) P athologist Signature Zinc, S 0.39 (L) 0.66 - 1.10 09/30/2021 [facility] mcg/mL 12:56 PM CDT Comment: ----ADDITIONAL INFORMATION---- This test was developed and its performa nce characteristics determined by [facility] in a manner consistent with CLIA requirements. This test has not been cleared or approved by the U.S. Meg[place] d and Drug Administration. Specimen Anatomical Collection Method Collection Time Receive d Time (Source) Location / / Volume Laterality Blood (Blood, 09/30/2021 7:37 AM 10/01/19 22 Venous) CDT 10:12 AM CDT Warren Connor M.D., M.P.H. LAB BLOOD NON ADD-ON Performing Organization Address [facility] Phon e Number [address] [place] [address] [address] [facility] [facility] [place] [address] Laboratory Medicine and Pathology [address] [place] [address] Dr. CHAPPELL Toxoplasma gondii Antibody, IgG (09/30/2021 7:37 AM CDT) Analysis Performed At Patho logist Time Signature Toxoplasma Ab, Negative Negative 09/30/2021 [facility] IgG, S 11:25 AM CDT Toxoplasma IgG <3 IU/mL 09/30/2021 [facility] Value 11:25 AM CDT Comment: ----REFERENCE VALUE---- <=9 IU/mL (Negative) 10-11 IU/mL (Equivocal) >=12 IU/mL (Positive) Specimen Anatomical Collection Method Collection Time Receive d Time (Source) Location / / Volume Laterality Blood (Blood, 09/30/2021 7:37 AM 10/01/19 22 Venous) CDT 10:37 AM CDT Warren Connor M.D., M.P.H. LAB MICROBIOLOGY - BLO OD ORDERABLES Performing Organization Address City/[facility] Phon e Number [address] [place] [address] 05 [facility] [facility] [place] [address] Laboratory Medicine and Pathology [address] [place] [address] Dr. CHAPPELL Mumps Ab, IgG (09/30/2021 7:37 AM CDT) P athologist Signature Mumps Ab, IgG, Positive 09/30/2021 [facility] S 11:25 AM CDT Comment: Results suggest response to immunization or prior exposure to the virus. ----REFERENCE VALUE---- Vaccinated: Positive (>=1.1 AI) Unvaccinated: Negative (<=0.8 AI) Mumps IgG Antibody Index 6.1 09/30/2021 11:2 5 AM CDT [facility] Specimen Anatomical Collection Method Collection Time Receive d Time (Source) Location / / Volume Laterality Blood (Blood, 09/30/2021 7:37 AM 10/01/19 Venous) CDT 10:37 AM CDT Warren Connor M.D., M.P.H. LAB MICROBIOLOGY - BLO OD ORDERABLES Performing Organization Address [facility] Phon e Number [facility] [address] [place] [address] [place] [address] [place] [address] Laboratory Medicine and Pathology [address] [place] [address] Dr. CHAPPELL Syphilis IgG w/ Reflex, EIA, S (09/30/2021 7:37 AM CDT) Patholo gist Method Time Signature Syphilis IgG Nonreactive Nonreactive 10/01/2021 [facility] w/ Reflex, 3:00 PM CDT EIA, S Comment: No serologic evidence of infection with T. pallidum (syphilis). ??Repeat testing may be cons idered in patients with suspected acute or primary syphilis in 2-4 weeks. For additional information on interpreta tion of the syphilis reverse algorithm and resul ts, see: [email or web address] system [facility] [email or web address]/ [email or web address]-[email or web address] df Specimen Anatomical Collection Method Collection Time Receive d Time (Source) Location / / Volume Laterality Blood (Blood, 09/30/2021 7:37 AM 10/01/19 22 Venous) CDT 10:12 AM CDT Warren Connor M.D., M.P.H. LAB MICROBIOLOGY - BLO OD ORDERABLES Performing Organization Address [facility] Phon e Number [facility] [address] [place] [address] Dr TA [place], [address] [place] [address] Laboratory Medicine and Pathology [address] CHAP[place] EBV Ab Profile (09/30/2021 7:37 AM CDT) [facility] Method Time Signature EBV VCA IgM Ab, S Negative Negative 09/30/2021 [facility] 11:25 AM CDT EBV VCA IgG Ab, S Positive Negative 09/30/2021 [facility] 11:25 AM CDT EBNA Ab, S Positive Negative 09/30/2021 [facility] 11:25 AM CDT Interpretation SEE COMMENT 09/30/2021 [facility] 11:25 AM CDT Comment: Results suggest [...] Number [facility] [address] [place] [address] [place] [address] Laboratory Medicine and Pathology [address] [place] [address] Dr. CHAPPELL Varicella-Zoster Ab, IgM and IgG (09/30/2021 7:37 AM CDT) P athologist Signature Varicella-Zost Positive 09/30/2021 [facility] er Ab, IgG, S 11:25 AM CDT Comment: Results suggest response to immunization or prior exposure to the virus. ----REFERENCE VALUE---- Vaccinated: Positive (>=1.1 AI) Unvaccinated: Negative (<=0.8 AI) Varicella IgG Antibody Index 3.9 09/30/2021 11:25 AM CDT [facility] Varicella-Zoster Ab, IgM, S Negative Negative 10/01/2021 2 :23 PM CDT [facility] Specimen Anatomical Collection Method Collection Time Receive d Time (Source) Location / / Volume Laterality Blood (Blood, 09/30/2021 7:37 AM 10/01/19 22 Venous) CDT 10:37 AM CDT Warren Connor M.D., M.P.H. LAB MICROBIOLOGY - BLO OD ORDERABLES Performing Organization Address [facility] Phon e Number [facility] [address] [place] [address] [place] [address] Laboratory Medicine and Pathology [address] [place] [address] Dr. CHAPPELL HSV Types 1 and 2 [...] - BLO OD ORDERABLES Performing Organization Address City/[facility] Phon e Number [facility] [address] [place] [place] [address] Laboratory Medicine and Pathology [address] [place] [address] Dr. CHAPPELL Cytomegalovirus Ab, IgM and IgG [...] - BLO OD ORDERABLES Performing Organization Address City/[facility]/ZIP Code Phon e Number [facility] [address] [place], [place] [address] SUPPORT CENTER [facility] [place] [address] Laboratory Medicine and Pathology [address] [place] (ABNORMAL) Prothrombin Time (PT) (09/30/2021 7:37 AM CDT) [facility] gist Method Time Signature Prothrombin 28.8 (H) [...] M.P.H. LAB BLOOD ADD-ON Performing Organization Address City/[facility] Code Phon e Number [facility] - [address] [place], [place] [address] [place] [address] Laboratories-[facility] [address] [facility] documented in this encounter Visit Diagnoses Diagnosis [...] documented in this encounter Care Teams Program Director/Music Director Relationship Specialty Start Date End Date Elsewhere, Pcp PCP - General Family Medicine 03/10/20 11/30/21 [facility] [place] [facility] 08/25/21 Ervin Schroeder MD Referring Provider Family Medicine 03/24/[address] [place], [place] [phone] documented as of this encounter
--- OUTSIDE RECORDS SUMMARY | 2022-02-16 12:28 | XMS_ITS | Encounter Summary ---
:1990 Author Organization [facility] Address [address] [place] [address] Care Team Providers Name Role Phone Elsewhere, Pcp Primary Care Provider Unavailable Encounter Details Date Type Department Care Team Description 08/27/2021 Orders Only Department of Mousa, Matthew Y, Cirrhosis [facility] Gastroenterology in Joshua Santillan ([facility]) (Primary Dx) [place], [place] [address] [place] [address] [address] [place] [address] [phone] Social History Tobacco Use Types Packs/Day Years [...] you attend jainism or Patient refused 2021 anabaptist services? 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 [address] [place] [phone] Virtual Visit Transplant Matthew Jerome 2 Tyrell Rodriguez M.D. [address] [place] [phone] Office Visit Gastroenterology and Matthew Jerome 2 Hepatology Natanael RodriguezGraeme, Lilian [address] [place] [address] [phone] Appointment Radiology Matthew Jerome 2 YTyrell, Lilian [address] [place] [phone] Hospital Gastroenterology and OkMatthew abdul Cirrhos is Alcoholic (HCC) 2 Encounter Hepatology Tyrell Rodriguez, Lilian [address] [place] [phone] Anesthesia Event Gastroenterology and Rl, 2 Hepatology Ervin Burgos M.D. 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
--- OUTSIDE RECORDS SUMMARY | 2022-02-16 12:28 | XMS_ITS | Encounter Summary ---
:1990 Author Organization [facility] Address [address] [place] [address] Care Team Providers Name Role Phone Elsewhere, Pcp Primary Care Provider Unavailable Encounter Details Date Type Department Care Team Description 08/26/2021 Clinical Communication Department of Felicita [place] Gastroenterology in [facility] [place], [place] [phone] [place] [address] ([facility]) [place] [phone] Social History Tobacco Use Types Packs/Day [...] you attend anabaptism or Patient refused 2021 synagogue services? 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 Provided [...] CDT Patient in process of discharge from [facility] (see note below). She did receive [...] and request this be sent to the [facility] in [place]. Upon chart review of past documentation the following was noted by Kerry Naranjo. I have ordered Vitamin K 5 mg X 7 days, to take orally. Then follow up by repeat PT/INR??on the 8th day. Please call pt and ask to get the lab at [facility] in [place]; this allows access to results. Past attempts [...] the patient is currently in patient at [facility] and likely would not be able to start the Rx tonight anyway. Please advise how patient should take vitamin K as she is scheduled for EGD on 09/01/21. A new Rx would need to be sent to the [facility] in [place] as the copy writer checked with the pharmacy and the they do not have the vitamin K Rx on file. documented in this encounter Plan of Treatment Upcoming Encounters Date Type Specialty Care Team Description Telemedicine Transplant 2 Appointment Radiology Matthew Jreome 2, M.B.B.S., M.D. [address] [place] [phone] Appointment Gastroenterdina and Adrianne, 2 Hepatology Yue Burciaga M.D. [address] [place] [phone] Virtual Visit Transplant Matthew Jerome 2 YTyrell M.D. [address] [place] [phone] Office Visit Gastroenterology and Matthew Jerome 2 Hepatology Tyrell Rodriguez M.D. [address] [place] [phone] Appointment Radiology Matthew Jerome 2 YTyrell M.D. [address] [place] [phone] Hospital Gastroenterology and Matthew Jerome Cirrhos is Alcoholic (HCC) 2 Encounter Hepatology Tyrell Rodriguez M.D. [address] [place] [phone] Anesthesia Event Gastroenterology and Rl, 2 Hepatology Ervin Burgos M.D. [address] [place] [phone] Surgery Gastroenterology and Matthew Jerome ESOPHAG OGASTRODUODENOSCOPY 2 Hepatology Tyrell Rodriguez M.D. 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 Hypertension Portal (HCC) documented as of this encounter Visit Diagnoses Not on filedocumented in this encounter Additional Health Concerns Infection Onset Date Last Indicated Resolved Time COVID19 Pending 08/29/2021 08/29/2021 08/29/2021 11:29 PM CDT COVID19 08/29/2021 08/29/2021 09/18/2021 8:31 AM CDT documented as of this encounter Care Teams Police Captain Precinct Relationship Specialty Start Date End Date Elsewhere, Pcp PCP - General Family Medicine 03/10/20 11/30/21 [facility] [place] [facility] 08/25/21 Ervin Schroeder MD Referring Provider Family Medicine 03/24/[address] [place] [phone] documented as of this encounter
--- OUTSIDE RECORDS SUMMARY | 2022-02-16 12:28 | XMS_ITS | Encounter Summary ---
:1990 Author Organization [facility] Address [address] [place] [address] Care Team Providers Name Role Phone Elsewhere, Pcp Primary Care Provider Unavailable Reason for Visit Reason Comments Phone Contact Records 08/03 Encounter Details Date Type Department Care Team Description 08/29/2021 Clinical Department of Matthew Jerome Phone Contact Communication Gastroenterology in Vik RodriguezB.S., (Record s 08/03) [facility].D [address] [facility] [address] [place] [phone] [place] [phone] Social History Tobacco Use Types Packs/Day Years [...] you attend baptism or Patient refused 2021 gnosticism services? Do [...] vocational [facility] degree you have received? 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 [address] [place] [phone] Virtual Visit Transplant Matthew Jerome 2 YTyrell, Lilian [address] [place] [phone] Office Visit Gastroenterology and Matthew Jerome 2 Hepatology Tyrell Rodriguez M.D. [address] [place] [phone] Appointment Radiology LuisMatthew abdul 2 YTyrell M.D. [address] [place] [phone] [facility] Gastroenterology and Matthew Jerome Cirrhos is Alcoholic (HCC) 2 Encounter Hepatology Tyrell Rodriguez M.D. [address] [place] [phone] Anesthesia Event Gastroenterology and Rl, 2 Hepatology Ervin Burgos M.D. [address] [place] [phone] Surgery Gastroenterology and Matthew Jerome ESOPHAG OGASTRODUODENOSCOPY 2 Hepatology Joshua RodriguezBSumaBGraeme, Lilian [address] [place] [phone] Scheduled Procedures Name Priority Associated Diagnoses Date/Time ESOPHAGOGASTRODUODENOSCOPY Cirrhosis Alc oholic (HCC) 03/20/2022 8:45 AM TAPPER HELPER Hypertension Portal (HCC) documented as of this encounter Visit Diagnoses Not on filedocumented in this encounter Additional Health Concerns Infection Onset Date Last Indicated Resolved Time COVID19 Pending 08/29/2021 08/29/2021 08/29/2021 11:29 PM CDT documented as of this encounter Care Teams Manufacturing Management Associate Relationship Specialty Start Date End Date Elsewhere, Pcp PCP - General Family Medicine 03/10/20 11/30/21 [facility] [place] [facility] 08/25/21 Ervin Schroeder MD Referring Provider Family Medicine 03/24/[address] [place] [phone] documented as of this encounter
--- OUTSIDE RECORDS SUMMARY | 2022-02-16 12:28 | XMS_ITS | Encounter Summary ---
:1990 Author Organization [facility] Address [address] [place] [address] Care Team Providers Name Role Phone Elsewhere, Pcp Primary Care Provider Unavailable Reason for Referral Appointment Request (Routine) - Closed Specialty Diagnoses / Procedures Referred By Contact Refer red To Contact Diagnoses Cirrhosis Alcoholic (HCC) Ascites Anemia Macrocytic Thrombocytopenia (HCC) Deficiency Coagulation Acquired (HCC) Kerry Naranjo APRN, Procedures Prothrombin Time (PT) C.N.P., M.S.N. [address] [place] [phone] Referral ID Status Reason Start Date Expiration Date Visits Requ ested Visits Authorized [id number] Closed 07/07/2021 07/07/2022 1 Reason for Visit Appointment Request (Routine) - Closed Specialty Diagnoses / Procedures Referred By Contact Refer red To Contact Diagnoses Cirrhosis Alcoholic (HCC) Ascites Anemia Macrocytic Thrombocytopenia (HCC) Deficiency Coagulation Acquired (HCC) Kerry Naranjo APRN, Procedures Prothrombin Time (PT) C.N.P., M.S.N. 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 Thrombocytopenia (HCC); [address] [facility] Deficiency Coagulation Acquired ([place]) [place] [phone] Social History Tobacco Use Types Packs/Day Years [...] you attend yazidi or Patient refused 2021 cheondoism services? 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 [address] [place] [phone] Virtual Visit Transplant Matthew Jerome 2 Tyrell Rodriguez M.D. [address] [place] [phone] Office Visit Gastroenterology and Matthew Jerome 2 Hepatology Tyrell Rodriguez M.D. [address] [place] [phone] Appointment Radiology Matthew Jerome 2 Vik RodriguezBLilian Bedolla [address] [place] [phone] Hospital Gastroenterology and Wvchantell Matthew Cirrhos is Alcoholic (HCC) 2 Encounter Hepatology Tyrell Rodriguez M.D. [address] [place] [phone] Anesthesia Event Gastroenterology and Rl, 2 Hepatology Ervin Burgos M.D. 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 Hypertension Portal (HCC) documented as of [...] Time (PT) (08/28/2021 5:01 PM CDT) [facility] gist Method Time Signature Prothrombin 25.9 [...] Code Phon e Number [facility]- [address] [place] [address] [facility] [address] System in [place] [address] documented in this encounter Visit Diagnoses Diagnosis Cirrhosis Alcoholic (HCC) Ascites Anemia Macrocytic Thrombocytopenia (HCC) Deficiency Coagulation Acquired (HCC) Cirrhosis Alcoholic (HCC) Cirrhosis Alcoholic (HCC) Hypertension Portal (HCC) documented in this encounter Care Teams Nurse Anesthetist Relationship Specialty Start Date End Date Elsewhere, Pcp PCP - General Family Medicine 03/10/20 11/30/21 [facility] [place] [facility] 08/25/21 Ervin Schroeder MD Referring Provider Family Medicine 03/24/[address] [place] [phone] documented as of this encounter
--- OUTSIDE RECORDS SUMMARY | 2022-02-16 12:28 | XMS_ITS | Encounter Summary ---
:1990 Author Organization [facility] Address [address] [place] [address] Care Team Providers Name Role Phone Elsewhere, Pcp Primary Care Provider Unavailable Encounter Details Date Type Department Care Team Description 08/29/2021 Orders Only Department of Mousa, Matthew Y, Deficiency C oagulation Acquired (HCC) (Primary Dx); Gastroenterology in Joshua Santillan Cirrhosis Alcoholic (HCC) [place], [place] 10[address] [facility] [address] [place] [phone] Social History Tobacco Use Types Packs/Day Years [...] you attend jewish or Patient refused 2021 caodaism services? 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 [address] [place] [phone] Virtual Visit Transplant Matthew Jerome 2 YTyrell M.D. [address] [place] [phone] Office Visit Gastroenterology and Matthew Jerome 2 Hepatology Vik RodriguezBGraeme, Lilian [address] [place] [phone] Appointment Radiology Matthew Jerome 2 YTyrell, Lilian [address] [place] [phone] Hospital Gastroenterology and Queenie Matthew Cirrhos is Alcoholic (HCC) 2 Encounter Hepatology Tyrell Rodriguez, Lilian [address] [place] [phone] Anesthesia Event Gastroenterology and Rl, 2 Hepatology Ervin Burgos M.D. 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 PROGRAM DIRECTOR Hypertension Portal (HCC) documented as of this encounter Visit Diagnoses Diagnosis Deficiency Coagulation Acquired (HCC) - Primary Cirrhosis Alcoholic (HCC) Cirrhosis Alcoholic (HCC) Cirrhosis Alcoholic (HCC) Hypertension Portal (HCC) documented in this encounter Care Teams Information Security Systems Instructor Relationship Specialty Start Date End Date Elsewhere, Pcp PCP - General Family Medicine 03/10/20 11/30/21 [facility] [place] [facility] 08/25/21 Ervin Schroeder MD Referring Provider Family Medicine 03/24/[address] [place] [phone] documented as of this encounter
--- OUTSIDE RECORDS SUMMARY | 2022-02-16 12:29 | XMS_ITS | Encounter Summary ---
:1990 Author Organization [facility] Address [address] [place] [address] Care Team Providers Name Role Phone Elsewhere, Pcp Primary Care Provider Unavailable Reason for Visit Auth/Cert Specialty Diagnoses / Procedures Referred By Contact Refer red To Contact Diagnoses Vomiting Abdominal pain Procedures n/a Referral ID Status Reason Start Date Expiration Date Visits Requ ested Visits Authorized [id number] 1 1 Encounter Details Date Type Department Care Team Description 07/26/2021 - Hospital Encounter [facility] Radha Bennett M. D. [address] [place] [address] [phone] Vomiting (Primary 07/27/2021 [facility] Serene Montgomery M.D. [address] [place] [address] [phone] Dx) [facility], Fifth Floor [address] [place] [address] [phone] Social History Tobacco Use Types Packs/Day Years [...] you attend confucianism or Patient refused 2021 adventism services? Do [...] vocational [facility] degree you have received? 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 Primary Team: T Medicine 1 ([facility]) Primary Care Providers: Elsewhere, Pcp (General) [...] 01 [facility] Laboratory Medicine 08/29/2021 4:00 PM [facility] COVID PRE SCREEN [facility] Family Medicine For appointment details refer to [...] more sleepy than usual. She presented to [facility] emergency department on 07/25 with nausea, vomiting, [...] local hospital beds, she was transferred to [facility] for further investigation and management. On presentation at [facility], she was in stable condition with [...] 07/26/2021 11:07 AM CDT T Medicine 1 ([facility]) Admission Note SUBJECTIVE CHIEF COMPLAINT Nausea [...] admitted locally and she was transferred to [facility]. Of note, on 07/06/21, she presented to [...] border. 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 Cardiology was consulted and recommended follow up with a legal counsel in the outpatient setting. Ms. Carias tells [...] with her boyfriend in an apartment in [place], [place]. She is not currently working but usedto work at the [employer] in [place]. Her last drink of alcohol was in [...] intact. No evidence of disorganizedthinking. 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 She has insight into her history of [...] female who presented to the ED in [place] yesterday with nausea and vomiting for about [...] that she followed up with them at [place]. - Plan: ?? Recommend Cardiology outpatient follow [...] questions. Thank you, ZACH Trevizo Clinical Documentation Halver Machine Operator Query created by: ZACH Trevizo 07/28/2021 11:55 [...] more sleepy than usual. She presented to [facility] emergency department on 07/25 with nausea, vomiting, [...] local hospital beds, she was transferred to [facility] for further investigation and management. On presentation at [facility], she was in stable condition with [...] Radiology Matthew Jerome 2, M.B.B.S., M.D. [address] [place] [phone] Appointment Gastroenterdina and Adrianne, 2 Hepatology Yue Burciaga M.D. [address] [place] [phone] Virtual Visit Transplant Matthew Jerome 2 YTyrell M.D. [address] [place] [phone] Office Visit Gastroenterology and Matthew Jerome 2 Hepatology Tyrell Rodriguez M.D. [address] [place] [phone] Appointment Radiology LuisMatthew abdul 2 YTyrell M.D. [address] [place] [phone] [facility] Cir[facility]os is Alcoholic (HCC) 2 Encounter Hepatology Tyrell Rodriguez M.D. [address] [place] [phone] Anesthesia Event Gastroenterology and Rl, 2 Hepatology Ervin Burgos M.D. [address] [place] [address] [phone] Surgery Gastroenterology and Matthew Jerome ESOPHAG OGASTRODUODENOSCOPY 2 Hepatology Tyrell Rodriguez M.D. [address] [place] [address] [phone] Pending Results Name Type Priority Associated Diagnoses Date/Ti nj Prepare Red Blood Blood Bank Routine 07/26/2021 10:57 AM CDT Cells, 1 Units Scheduled Procedures Name Priority Associated Diagnoses Date/Time ESOPHAGOGASTRODUODENOSCOPY Cirrhosis Alc oholic (HCC) 03/20/2022 8:45 AM DIRECTOR OF GRADUATE MEDICAL EDUCATION Hypertension Portal (HCC) documented as of [...] (Lactate Dehydrogenase) (07/27/2021 10:15 AM CDT) [facility] LD 218 122 - 222 07/27/2021 DTL U/L 11:27 AM CDT Specimen Anatomical Collection Method Collection Time Receive d Time (Source) Location / / Volume Laterality Blood (Blood, 07/27/2021 10:15 07/27/2021 Venous) AM CDT 11:03 AM CDT Conor Santana., M.S. LAB BLOOD NON ADD-ON Performing Organization Address City/State/ZIP Code Phon e Number [facility] - [address] [place], [place] [address] [facility] [place] [address] [facility] [address] Direct Antiglobulin Test (Poly) (07/27/2021 10:15 AM CDT) [facility] Method Time Signature Direct Negative Negative 07/27/2021 STRM Antiglobulin 10:50 AM CDT Test, Polyspecific Specimen Anatomical Collection Method Collection Time Receive d Time (Source) Location / / Volume Laterality Blood (Blood, 07/27/2021 10:15 07/27/2021 Venous) AM CDT 10:27 AM CDT Conor Santillan, M.S. LAB BLOOD BANK TEST O RDERABLES Performing Organization Address [facility] Phon e Number [facility] - 200 [place], [place] [address] [facility] [place] [address] [facility] 200 [facility] Peripheral Smear Interpretation (07/27/2021 9:39 AM CDT) Component Value Ref Test Analysis Performed Pathologis t Range Method Time At [facility] 07/28[facility] 10:50 AM CDT Report Marcela Rogers M.D. 07/28/2021 [facility] electronically 10:50 AM signed by CDT I verify that I have examined all relevant slides/materials for the specimen(s) and rendered or confirmed the diagnosis. Interpretation Marked acanthocytosis present, compatible with clini ada 07/28/2021 [facility] history of alcohol-associated cirrhosis. 10:50 AM CDT Specimen Anatomical Collection Method Collection Time Receive d Time (Source) Location / / Volume Laterality Blood 07/27/2021 9:39 AM 9:39 CDT AM CDT Conor Santillan, M.S. LAB PATHOLOGY/CYTOLOG Y ORDERABLES Performing Organization Address City/[facility] Phon e Number [facility] - 200 [place], [place] [address] [place] [address] [facility] 200 [facility] (ABNORMAL) Reticulocytes (07/27/2021 9:39 AM CDT) Patholo gist Method Time [facility] Reticulocytes, B 7.52 (H) 0.60 - 07/27/2021 PM 2.71 % 11:12 AM CDT Absolute 155.7 (H) 30.4 - 07/27/2021 [facility] Reticulocyte 110.9 11:12 AM CDT x10(9)/L Specimen Anatomical Collection Method Collection Time Receive d Time (Source) Location / / Volume Laterality Blood (Blood, 07/27/2021 9:39 AM 07/28/19 9:39 Venous) CDT AM CDT Conor Santillan, M.S. LAB BLOOD ADD-ON Performing Organization Address [facility] Phon e Number [facility] - 200 [place], [place] [address] [place] [address] (ABNORMAL) Morphology Evaluation (Special Smear) (07/27/2021 9:39 AM CDT) Analysis Performed At Patho logist Time Signature Neutrophilic Segs 78 (H) 50 - 75 % 07/28/2021 DTL and Bands 11:07 AM CDT Lymphocytes 16 (L) 18 - 42 % 07/28/2021 [facility] 11:07 AM CDT Monocytes 6 2 - 11 % 07/28/2021 [facility] 11:07 AM CDT Specimen Anatomical Collection Method Collection Time Receive d Time (Source) Location / / Volume Laterality Blood (Blood, 07/27/2021 9:39 AM 07/28/19 9:39 Venous) CDT AM CDT Conor Santillan, M.S. LAB BLOOD ADD-ON Performing Organization Address [facility] Phon e Number [facility] - [address] [place], [place] [address] [place] [address] (ABNORMAL) CBC with Differential, Blood (07/27/2021 [...] Code Phon e Number [facility] - [address] [place], [place] [address] [facility] [place] [address] [facility] [address] [facility] (ABNORMAL) Prothrombin Time (PT) (07/27/2021 5:09 AM CDT) [facility] Method Time Signature Prothrombin 31.4 (H) [...] LAB BLOOD ADD-ON Performing Organization Address [facility] Phon e Number [facility] - [address] [place] [address] [facility] [place] [address] [facility] 200 [facility] (ABNORMAL) Hepatic Function Panel (07/27/2021 5:09 AM CDT) [facility] Method Time Signature Bilirubin, Total, S [...] M.D. LAB BLOOD ADD-ON Performing Organization Address City/[facility] Code Phon e Number [facility] - 200 [place] [address] [facility] [place] [address] [facility] [address] (ABNORMAL) Basic [...] 07/27/2021 DTL Black/ mL/min/BSA 5:52 AM CDT Vietnamese Comment: ----ADDITIONAL INFORMATION---- Estimated GFR calculated using [...] Code Phon e Number [facility] - [address] [place], [place] [address] [place] [address] [facility] 200 [facility] (ABNORMAL) Haptoglobin (07/27/2021 5:04 AM CDT) athologist Signature Haptoglobin, S <14 (L) 30 - 200 07/29/2021 [facility] mg/dL 10:32 AM CDT Specimen Anatomical Collection Method Collection Time Receive d Time (Source) Location / / Volume Laterality Blood (Blood, 07/27/2021 5:04 AM 07/30/19 9:06 Venous) CDT AM CDT Kwabena Zelaya M.D. LAB BLOOD ADD-ON Performing Organization Address City/[facility]/ZIP Code Phon e Number [facility] [address] [place], [place] [address] [facility] [facility] [place] [address] Laboratory Medicine and Pathology [address] [...] Organization Address City/State/ZIP Code Phon e Number [address] [address] [place] [address] [facility] 200 [facility] Transfuse Red Blood Cells : (07/26/2021 7:19 [...] PROCEDURES Dipstick, Urine (07/26/2021 12:11 PM CDT) [facility] gist Method Time Signature Hemoglobin, Negative [...] M.D. LAB URINE ORDERABLES Performing Organization Address City/[facility] Phon e Number [facility] - [address] [place] [address] [address] [facility] Osmolality, Urine (07/26/2021 12:11 PM CDT) athologist Signature Osmolality, U 613 150 - 1150 07/26/2021 DTL mOsm/kg 2:34 PM CDT Specimen Anatomical Collection Method Collection Time Receive d Time (Source) Location / / Volume Laterality Urine 07/26/2021 12:11 07/26/2021 PM CDT 12:58 PM CDT Virginie Batista M.D. LAB URINE ORDERABLES Performing Organization Address City/[facility] Phon e Number [facility] - [address] [place], [place] [address] [place] [address] pH, Random, Urine (07/26/2021 12:11 PM CDT) athologist Signature pH, Random, U 6.7 4.5 - 8.0 07/26/2021 DTL 2:34 PM CDT Specimen Anatomical Collection Method Collection Time Receive d Time (Source) Location / / Volume Laterality Urine 07/26/2021 12:11 07/26/2021 PM CDT 12:58 PM CDT Virginie Batista M.D. LAB URINE ORDERABLES Performing Organization Address City/[facility] Phon e Number [facility] - [address] [place] [address] [place] [address] [address] (ABNORMAL) Microscopic Manual (07/26/2021 12:11 PM [...] M.D. LAB URINE ORDERABLES Performing Organization Address City/[facility] Phon e Number [facility] - [address] [place] [address] [place] [address] [address] Urinalysis with Microscopic: Urine, Midstream (07/26/2021 12:11 PM CDT) [facility] gist Method Time Signature Source Urine, Urine, [...] M.D. LAB URINE ORDERABLES Performing Organization Address [facility] Phon e Number [facility] - [address] [place], [place] [address] [facility] [place] [address] [facility] 200 [facility] (ABNORMAL) Prothrombin Time (PT) (07/26/2021 [...] M.D. LAB BLOOD ADD-ON Performing Organization Address City/[facility] Phon e Number [facility] - [address] [place], [place] [address] [facility] [place] [address] [facility] 200 [facility] CRP (C-Reactive Protein) (07/26/2021 10:58 [...] Code Phon e Number [facility] - [address] [place], [place] [address] [facility] [place] [address] [facility] [address] (ABNORMAL) Basic Metabolic [...] 07/26/2021 DTL Black/ mL/min/BSA 11:55 AM CDT Vietnamese Comment: ----ADDITIONAL INFORMATION---- Estimated GFR calculated using [...] Code Phon e Number [facility] - [address] [place], [place] [address] [facility] [place] [address] [facility] 200 [facility] (ABNORMAL) CBC with Differential, Blood (07/26/2021 10:58 AM CDT) [facility] Method Time Signature Hemoglobin 6.8 (L) [...] M.D. LAB BLOOD ADD-ON Performing Organization Address City/[facility] Phon e Number [facility] - [address] [place], [place] [address] [facility] [place] [place] [address] [facility] 200 [facility] Type and Screen (with reflex Antibody ID) (07/26/2021 10:57 AM CDT) [facility] [employer] Method Time Signature ABORh B Pos Not [...] BANK TEST ORDERABL ES Performing Organization Address City/[facility] Phon e Number [facility] - [address] [place] [address] [facility] [place] [address] [address] (ABNORMAL) Hepatic Function Panel (07/26/2021 10:57 AM CDT) [employer] Method Time Signature Bilirubin, Total, S 7.5 [...] M.D. LAB BLOOD ADD-ON Performing Organization Address City/[facility]/ZIP [facility] Phon e Number [facility] - [address] Magnesium (07/26/2021 10:57 AM CDT) P athologist Signature Magnesium, S 1.8 1.7 - 2.3 07/26/2021 DTL mg/dL 3:17 PM CDT Specimen Anatomical Collection Method Collection Time Receive d Time (Source) Location / / Volume Laterality Blood (Blood, 07/26/2021 10:57 07/26/2021 2:55 Venous) AM CDT PM CDT Virginie Batista M.D. LAB BLOOD ADD-ON Performing Organization Address City/[facility]/ZIP Code Phon e Number [facility] - 200 [place] [phone] [address] ECG 12 Lead (07/26/2021 9:10 AM CDT) P athologist Signature Ventricular Rate 77 BPM MUSE ECG/Min ID Interval 160 ms MUSE QRSD Interval 92 ms MUSE QT Interval 418 ms MUSE QTC Interval 473 ms MUSE P [place] -12 degrees MUSE R [place] 53 degrees MUSE T Wave [place] -6 degrees MUSE Specimen Anatomical Collection Method [...] 10, headaches, Starting on 07/26/21 at 1038 xplmmzrcaavxq-vnjfwkxotu-vadxznvm in Lipoderm Given 07/28/19 10:15 AM CDT [...] sleep, Starting on Sat 2 at 1354 eexdagrlonmh-vrqg-MJ-Ca-minerals 400 mcg Given 07/27/2021 8:00 A M [...] (CANCELED) 0800 (Given - Provider: Celena Richardson RGabby) 1 mg, oral, Daily, First dose on 07/27/21 at 0900 folic acid tablet 5 mg 5 mg, oral, Daily, First dose (after last modification) on M on 07/28/21 at 0900 furosemide tablet 20 mg (LASIX) 1116 (Given - Pr ovider: Andrew MorganNSuma) 0800 (Given - Provider: Celena Richardson RGabby) 20 mg, oral, Daily, First dose on 07/26/21 at 1045 gabapentin capsule 300 mg (NEURONTIN) 14 09 (Given - Provider: Humera Murray RGabby)2006 (Given - Provider: Ana Paula Noriega R.N.) 0800 (Given - Provider: Celena Richardson R.N.)1406 (Given - Provider: Celena Richardson R.NSuma) 300 mg, oral, 3 times daily, First [...] dinner, First dose on 07/26/21 at 1600 qroxxnnzvgyo-gdml-RB-Ca-minerals 400 mcg (folic acid) tablet 1 tablet [...] 10, headaches, Starting on 07/26/21 at 1038 amkdzuzyswlyu-owjbjpgjge-legjngtp in Lipoderm 2%-5%-5% cream 1 g 1220 [...] R.N.) 0813 (Given - Provider: Celena Richardson, R.N.)5894 (Given - Provider: Celena Richardson, R.N.) 5 mg, oral, Every 6 hours PRN, moderate pain or score 4-6 of 10, severe pain or score 7-10 of 10, Starting on 07/26/21 at 1036 documented in this encounter Care Teams Operator Helper Relationship Specialty Start Date End Date Elsewhere, Pcp PCP - General Family Medicine 03/10/20 11/30/21 Ervin Schroeder MD Referring Provider Family Medicine 03/24/[address] [place] [phone] documented as of this encounter
--- OUTSIDE RECORDS SUMMARY | 2022-02-16 12:29 | XMS_ITS | Encounter Summary ---
:1990 Author Organization [facility] Address [address] [place] [address] Care Team Providers Name Role Phone Elsewhere, Pcp Primary Care Provider Unavailable Encounter Details Date Type Department Care Team Description 08/01/2021 Clinical Communication [facility] Lester Garber La [place] M, [place] M.D. [address] [place] [address] [address] [place] [phone] Social History Tobacco Use Types Packs/Day Years [...] attend jehovah's witness or Patient refused 2021 baptist services? 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 She has been wrapping [...] Matthew Jerome 2 Tyrell Rodriguez M.D. [address] [place] [phone] Appointment Gastroenterology and Adrianne, 2 Hepatology Yue Burciaga M.D. [address] [place] [phone] Virtual Visit Transplant Matthew Jerome 2 Tyrell Rodriguez M.D. [address] [place] [phone] Office Visit Gastroenterology and Matthew Jerome 2 Hepatology Tyrell Rodriguez M.D. [address] [place] [address] [phone] Appointment Radiology Matthew Jerome 2 Tyrell Rodriguez M.D. [address] [place] [phone] Hospital Gastroenterology and Matthew Jerome Cirrhos is Alcoholic (HCC) 2 Encounter Hepatology Tyerll Rodriguez M.D. [address] [place] [address] [phone] Anesthesia Event Gastroenterology and Rl, 2 Hepatology Ervin Burgos M.D. [address] [place] [phone] Surgery Gastroenterology and Mousa, Matthew ESOPHAG OGASTRODUODENOSCOPY 2 Hepatology Tyrell Rodriguez M.D. [address] [place] [phone] Scheduled Procedures Name Priority Associated Diagnoses Date/Time ESOPHAGOGASTRODUODENOSCOPY Cirrhosis Alc oholic (HCC) 03/20/2022 8:45 AM HOTEL SUPPLIES SALESPERSON Hypertension Portal (HCC) documented as of this encounter Visit Diagnoses Not on filedocumented in this encounter Care Teams Cane Loader Relationship Specialty Start Date End Date Elsewhere, Pcp PCP - General Family Medicine 03/10/20 11/30/21 Ervin Schroeder MD Referring Provider Family Medicine 03/24/[address] [place] [address] [phone] documented as of this encounter
--- OUTSIDE RECORDS SUMMARY | 2022-02-16 12:29 | XMS_ITS | Encounter Summary ---
:1990 Author Organization [facility] Address [address] [place] [address] Care Team Providers Name Role Phone Elsewhere, Pcp Primary Care Provider Unavailable Reason for Visit Reason Comments Leg Swelling Encounter Details Date Type Department Care Team Description 08/01/2021 [facility], [facility] [address] [place] [phone] [place] [address] [phone] Social History Tobacco Use Types Packs/Day Years [...] attend roman catholic or Patient refused 2021 uatsdin services? 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 Photos were sent to her ad clerk. History of Alcoholic Cirrhosis, Live failure, chronic [...] or worsening Protocols used: LEG SWELLING AND AFIAN-BFVUN-TE documented in this encounter Plan of Treatment Upcoming Encounters Date Type Specialty Care Team Description Telemedicine Transplant 2 Appointment Radiology Matthew Jreome 2 YTyrell M.D. [address] [place] [phone] [facility], 2 Hepatology Yue Burciaga M.D. [address] [place] [phone] Virtual Visit Transplant Matthew Jerome 2 YVikBLilian Bedolla [address] [place] [phone] Office Visit Gastroenterology and QueenieMatthew 2 Hepatology Tyrell Rodriguez M.D. [address] [place] [phone] Appointment Radiology Matthew Jerome 2 YTyrell M.D. [address] [place] [phone] Hospital Gastroenterology and [place], Matthew Cirrhos is Alcoholic (HCC) 2 Encounter Hepatology Tyrell Rodriguez, Lilian [address] [place] [address] [phone] Anesthesia Event Gastroenterology and Rl, 2 Hepatology Ervin Burgos M.D. [address] [place] [address] [phone] Surgery G[address] [facility] ESOPHAG OGASTRODUODENOSCOPY 2 Hepatology Tyrell Rodriguez M.D. [address] [place] [phone] Scheduled Procedures Name Priority Associated Diagnoses Date/Time ESOPHAGOGASTRODUODENOSCOPY Cirrhosis Alc oholic (HCC) 03/20/2022 8:45 AM RADIO TALK SHOW HOST Hypertension Portal (HCC) documented as of this encounter Visit Diagnoses Not on filedocumented in this encounter Care Teams Claim Processor Relationship Specialty Start Date End Date Elsewhere, Pcp PCP - General Family Medicine 03/10/20 11/30/21 Ervin Schroeder MD Referring Provider Family Medicine 03/24/[address] [place] [phone] documented as of this encounter
--- OUTSIDE RECORDS SUMMARY | 2022-02-16 12:29 | XMS_ITS | Encounter Summary ---
:1990 Author Organization [facility] Address [address] [place] [address] Care Team Providers Name Role Phone Elsewhere, Pcp Primary Care Provider Unavailable Reason for Referral Outpatient (Routine) - Closed Specialty Diagnoses / Referred By Contact Referred To Procedures Contact Gastroenterology and Matthew Jerome, [facility] Region Hepatology Lilian Santillan [address] [place] [phone] Referral ID Status Reason Start Date Expiration Date Visits Requ ested Visits Authorized [id number] Closed 08/05/2021 08/05/2022 1 1 Occupational Therapy (Routine) - Closed Specialty Diagnoses / Procedures Referred By Contact Refer red To Contact Diagnoses Edema Leg Matthew Jerome M.B.B.S., [facility] Procedures OT Evaluate and treat Lilian [address] [place] [phone] Referral ID Status Reason Start Date Expiration Date Visits Requ ested Visits Authorized [id number] Closed 08/05/2021 08/05/2022 1 1 Reason for Visit Outpatient (Routine) - Closed Specialty Diagnoses / Referred By Contact Referred To Procedures Contact Gastroenterology and Kerry Naranjo, [facility] Hepatology PRODUCTION LINE TECHNICIAN, Moira, M.S.N. [facility] [place] [address] Referral ID Status Reason Start Date Expiration Date Visits Requ ested Visits Authorized [id number] Closed 07/21/2021 07/21/2022 1 1 Encounter Details Date Type Department Care Team Description 08/05/2021 Office Visit Department of Matthew Jerome, Douglas Leg (P rimary Dx); Gastroenterology in Joshua Santillan Cirrhosis Alcoholic (HCC) [address] [phone] Social History Tobacco Use Types [...] you attend caodaism or Patient refused 2021 mormonism services? Do [...] or the highest technical, or vocational p Swidjit degree you have received? 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 Worked at [employer]. For 13 years she was a vegetarian, [...] on her own after a trip [place], but could not remember why she decided to. Prior to that she had 4 episodes of recurrent pancreatitis. She states that the 1st illness she had was after a trip to [place] when she had abdominal pain and she [...] the liver Transplant selection committee meeting in [facility]. She agreed to proceed. I explained that [...] contact the liver transplant coordinators to submit [id number], pending approval. Once approved, the transplant coordinators [...] her PCP #[id number] Newly diagnosed PFO with [id number] atrial shunt: Echo done March 2020 # [...] OLAYINKA Trotter Gastroenterology, Hepatology and Transplant hepatology [facility] documented in this encounter Plan of Treatment Upcoming Encounters Date Type Specialty Care Team Description Telemedicine Transplant 2 Appointment Radiology Matthew Jerome 2, M.B.B.S., M.D. [address] [place] [phone] Appointment Gastroenterology and Adrianne, 2 Hepatology Yue Burciaga M.D. [address] [place] [phone] Virtual Visit Transplant Matthew Jerome 2, M.B.B.S., M.D. [address] [place] [phone] Office Visit Gastroenterology and Matthew Jerome 2 Hepatology Tyrell Rodriguez M.D. [address] [place] [phone] Appointment Radiology Queenie Matthew 2 YTyrell M.D. [address] [place] [phone] Hospital Gastroenterology and [facility] Cirrhos is Alcoholic (HCC) 2 Encounter Hepatology Tyrell Rodriguez M.D. [address] [place] [phone] Anesthesia Event Gastroenterology and Rl, 2 Hepatology Ervin Burgos M.D. [address] [place] [phone] Surgery Gastroenterology and [facility] ESOPHAG OGASTRODUODENOSCOPY 2 Hepatology Tyrell Rodriguez M.D. [address] [place] [phone] Scheduled Procedures Name Priority Associated Diagnoses Date/Time ESOPHAGOGASTRODUODENOSCOPY Cirrhosis Alc oholic (HCC) 03/20/2022 8:45 AM MOSS PICKER Hypertension Portal (HCC) Scheduled Referrals Name Type [...] CDT eGFR-Black/Afri >90 >=60 08/11/2021 OWAT can Greek mL/min/BSA 1:53 PM CDT Comment: ----ADDITIONAL INFORMATION---- [...] [facility]- [address] [place] [address] [facility] [place] [address] System in [place] [address] documented in this encounter Visit Diagnoses Diagnosis Edema Leg - Primary Cirrhosis Alcoholic (HCC) Cirrhosis Alcoholic (HCC) Cirrhosis Alcoholic (HCC) Hypertension Portal (HCC) documented in this encounter Care Teams Electric Lift Truck Driver Relationship Specialty Start Date End Date Elsewhere, Pcp PCP - General Family Medicine 03/10/20 11/30/21 Ervin Schroeder MD Referring Provider Family Medicine 03/24/211979 [address] [place] [address] documented as of this encounter
--- OUTSIDE RECORDS SUMMARY | 2022-02-16 12:29 | XMS_ITS | Encounter Summary ---
:1990 Author Organization [facility] Address [address] [place] [address] Care Team Providers Name Role Phone Elsewhere, Pcp Primary Care Provider Unavailable Encounter Details Date Type Department Care Team Description 07/25/2021 Clinical Communication Department of Ines Warren, Gastroenterology in [address] [place] [phone] Social History Tobacco Use Types Packs/Day Years [...] you attend baptist or Patient refused 2021 confucianism services? 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 - 07/25/2021 2:57 PM CDT Patient called back again. Patient states that she is going to call 911 for an ambulance. Patient states that her abdominal pain is bad and she is becoming increasing confused. Patient [facility] to go to[facility] for evaluation. Told patient to request [place] Location. Patient is home alone as her mother and fiance are [facility] [place] Telephone Encounter - Kerry Naranjo APRN, C.N.P., M.S.N. - 07/25/2021 2:41 PM CDT APOORVAI In case you get a call on this [facility] clinic cirrhotic. Payne Telephone Encounter - Kerry [...] Radiology Matthew Jerome 2 YTyrell M.D. [address] [place] [phone] Appointment Gastroenterology and Adrianne, 2 Hepatology Yue Burciaga M.D. [address] [place] [phone] Virtual Visit Transplant Matthew Jerome 2 Tyrell Rodriguez M.D. [address] [place] [address] [phone] Office Visit Gastroenterology and Matthew Jerome 2 Hepatology Tyrell Rodriguez M.D. [address] [place] [address] [phone] Appointment Radiology Matthew Jerome 2 Tyrell Rodriguez M.D. [address] [place] [address] [phone] Hospital Gastroenterology and Matthew Jerome Cirrhos is Alcoholic (HCC) 2 Encounter Hepatology Tyrell Rodriguez M.D. [address] [place] [address] [phone] Anesthesia Event Gastroenterology and Rl, 2 Hepatology Ervin Burgos M.D. [address] [place] [address] [phone] Surgery Gastroenterology and Mousa, Matthew ESOPHAG OGASTRODUODENOSCOPY 2 Hepatology Tyrell Rodriguez M.D. [address] [place] [phone] Scheduled Procedures Name Priority Associated Diagnoses Date/Time ESOPHAGOGASTRODUODENOSCOPY Cirrhosis Alc oholic (HCC) 03/20/2022 8:45 AM COMMUNICATIONS MEDIA PROFESSOR Hypertension Portal (HCC) documented as of this encounter Visit Diagnoses Not on filedocumented in this encounter Care Teams Intelligence Consultant Relationship Specialty Start Date End Date Elsewhere, Pcp PCP - General Family Medicine 03/10/20 11/30/21 Ervin Schroeder MD Referring Provider Family Medicine 03/24/[address] [place] [phone] documented as of this encounter
--- OUTSIDE RECORDS SUMMARY | 2022-02-16 12:29 | XMS_ITS | Encounter Summary ---
:1990 Author Organization [facility] Address [address] [place] [address] Care Team Providers Name Role Phone Elsewhere, Pcp Primary Care Provider Unavailable Reason for Visit Reason Comments Vomiting Pt reports hx of liver cirrh osis, states discussed symptoms of vomiting, inability to tolerate home m edications with specialty team and referred to ED for further evaluation. Encounter Details Date Type Department Care Team Description 07/[facility]2021 [facility] [address] [place] [phone] Abdominal Pain (Primary Dx); 07/26/2021 [facility] Les Jj D.O. [address] [place] [phone] Nausea And Vomiting Emergency Department [address] [place] [phone] Social History Tobacco Use Types [...] you attend shinto or Patient refused 2021 anabaptism services? 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 Godwin. Disposition pending transfer to [place] for abdominal pain, generalized weakness, nausea/vomiting,underlying liver [...] and Family: Twice a week ??? Attends Uatsdin Services: Never ??? Active Member of [employer] [...] Radiology Matthew Jerome 2 YTyrell M.D. [address] [place] [phone] Appointment Gastroenterology and Adrianne, 2 Hepatology uYe Burciaga M.D. [address] [place] [phone] Virtual Visit Transplant Matthew Jerome 2 YTyrell M.D. [address] [place] [address] [phone] Office Visit Gastroenterology and [facility] 2 Hepatology Tyrell Rodriguez M.D. [address] [place] [phone] Appointment Radiology [facility] 2 YTyrell M.D. [address] [place] [phone] Hospital Gastroenterology and [facility] Cirrhos is Alcoholic (HCC) 2 Encounter Hepatology Tyrell Rodriguez M.D. [address] [place] [phone] Anesthesia Event Gastroenterology and Rl, 2 Hepatology Ervin Burgos M.D. [address] [place] [phone] Surgery Gastroenterology and [facility] ESOPHAG OGASTRODUODENOSCOPY 2 Hepatology Tyrell Rodriguez M.D. [address] [place] [phone] Scheduled Procedures Name Priority Associated Diagnoses Date/Time ESOPHAGOGASTRODUODENOSCOPY Cirrhosis Alc oholic (HCC) 03/20/2022 8:45 AM SALES DEVELOPMENT ASSOCIATE Hypertension Portal (HCC) documented as of [...] PCR Rapid, V (07/25/2021 9:50 PM CDT) [facility] Method Time Signature SARS CoV-2, Undetected Undetected 07/25/2021 MKTO PCR, Rapid, V 10:32 PM CDT Comment: ----ADDITIONAL INFORMATION---- This RT-PCR test was performed using the Daniel SARS-CoV-2 and Influenza A/B Reagent assay from [employer], which has received Emergency Use Authori zation(EUA) by the U.S. Food and Drug Administration . Fact sheets for this Emergency Use Autho rization (EUA) assay can be found at the following link s: For Healthcare Providers: https://www.fda.gov/media/081067/downloa d For Patients: https://www.fda.gov/media/911300/downloa d SARS Coronavirus 2, Source, Swab, Nasopharynx 07/02 10:06 PM CDT MKTO Rapid Specimen Anatomical Collection Method Collection Time Receive d Time (Source) Location / / Volume Laterality Varies 07/25/2021 9:50 PM CDT 10:06 PM CDT Anthony Godwin M.D. LAB MICROBIOLOGY - GENERAL O RDERABLES Performing Organization Address City/State/ZIP Code Phon e Number [facility]- [facility] [place] [address] [place] [address] System in [place] [address] [place] [address] SARS Coronavirus 2, PCR, V Asymptomatic (07/25/2021 9:50 PM CDT) athologist Signature SARS-Coronavir CANCELED 07/25/2021 MKTO us-2, PCR 10:06 PM CDT Comment: ----ADDITIONAL INFORMATION---- This RT-PCR test using the Xpert Xpress SARS-CoV-2/Flu/RSV assay ([employer] performed on the [employer] DX systems has received Emergency Use Authorization (EU A) by the U.S. Food and Drug Administration. Performanc e characteristics were verified by [facility] inic in a manner consistent with CLIA requirements . Fact sheets for this Emergency Use Autho rization (EUA) assay can be found at the following link s: For Healthcare Providers: https://www.fda.gov/media/492568/downloa d For Patients: https://www.fda.gov/media/790013/downloa d Result canceled by the ancillary. Specimen Source CANCELED 07/25/2021 10:06 PM CDT MKALIE Comment: REVISED RESULTS Specimen Anatomical Collection Method Collection Time Receive d Time (Source) Location / / Volume Laterality Varies 07/25/2021 9:50 PM 2 (Nasopharynx) CDT 10:06 PM CDT Narrative [facility] - 07/25/2021 10:06 PM CDT SARS Coronavirus 2, PCR, V was cancelled on 07/25/2021 at 22:06; Duplicate test request. Anthony Godwin M.D. LAB MICROBIOLOGY - GENERAL O RDERABLES Performing Organization Address City/[facility] Code Phon e Number [address] [address] [place] [address] System [address] [place] [address] (ABNORMAL) Ammonia (07/25/2021 7:05 PM CDT) P athologist Signature Ammonia, P 81 (H) <=51 07/25/2021 ANN mcmol/L 7:29 PM CDT Specimen Anatomical Collection Method Collection Time Receive d Time (Source) Location / / Volume Laterality Blood (Blood, 07/25/2021 7:05 PM 07/26/19 7:08 Venous) CDT PM CDT Anthony Godwin M.D. LAB BLOOD NON ADD-ON Performing Organization Address City/State/[facility] Phon e Number [facility]- [address] [place] [address] [place] [address] System in [address] [place] [address] Lipase (07/25/2021 7:05 PM CDT) P athologist Signature Lipase, P 13 13 - 60 U/L 07/25/2021 7:30 MKTO PM CDT Specimen Anatomical Collection Method Collection Time Receive d Time (Source) Location / / Volume Laterality Blood (Blood, 07/25/2021 7:05 PM 07/26/19 7:08 Venous) CDT PM CDT Anthony Godwin M.D. LAB BLOOD ADD-ON Performing Organization Address City/[facility] Phon e Number [facility]- [address] [place] [phone] [place] [address] System [address] [place] [address] (ABNORMAL) Comprehensive Metabolic Panel (07/25/2021 7:05 [...] CDT eGFR-Black/Afri >90 >=60 07/25/2021 MKTO can Tunisian mL/min/BSA 7:30 PM CDT Comment: ----ADDITIONAL INFORMATION---- [...] Phon e Number [facility]- [address] [place] [phone] [place] [address] [place] [address] System in [address] [place] [address] (ABNORMAL) CBC with Differential, Blood (07/25/2021 7:05 PM CDT) [facility] gist Method Time Signature Hemoglobin 7.4 [...] Phon e Number [facility]- [address] [place] [phone] [place] [address] System in [address] [place] [address] documented in this encounter Visit Diagnoses [...] as of this encounter Care Teams Deputy Harbormaster Relationship Specialty Start Date End Date Elsewhere, Pcp PCP - General Family Medicine 03/10/20 11/30/21 Ervin Schroeder MD Referring Provider Family Medicine 03/24/21 [address] [facility] [place] [address] documented as of this encounter
--- OUTSIDE RECORDS SUMMARY | 2022-02-16 12:29 | XMS_ITS | Encounter Summary ---
:[address] [facility] Address [address] [place] [address] Care Team Providers Name Role Phone Elsewhere, Pcp Primary Care Provider Unavailable Encounter Details Date Type Department Care Team Description 07/23/2021 Orders Only Pharmacy Prior Auth Maye Clements [phone] Social History Tobacco Use Types Packs/Day Years [...] you attend religious or Patient refused 2021 faith services? 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 [address] [place] [phone] Virtual Visit Transplant Matthew Jerome 2 Vik RodriguezBLilian Bedolla [address] [place] [address] [phone] Office Visit Gastroenterology and Matthew Jerome 2 Hepatology Vik RodriguezBLilian Bedolla [address] [place] [phone] Appointment Radiology Matthew Jerome 2 YTyrell, Lilian [address] [place] [address] [phone] Hospital Gastroenterology and [facility] Cirrhos is Alcoholic (HCC) 2 Encounter Hepatology Tyrell Rodriguez M.D. [address] [place] [phone] Anesthesia Event Gastroenterology and [facility], 2 Hepatology Ervin Burgos M.D. [address] [place] [address] [phone] Surgery Gastroenterology and [facility] ESOPHAG OGASTRODUODENOSCOPY 2 Hepatology Tyrell Rodriguez M.D. [address] [place] [phone] Scheduled Procedures Name Priority Associated Diagnoses Date/Time ESOPHAGOGASTRODUODENOSCOPY Cirrhosis Alc oholic (HCC) 03/20/2022 8:45 AM APPLIANCE PARTS COUNTER CLERK Hypertension Portal (HCC) documented as of this encounter Visit Diagnoses Not on filedocumented in this encounter Care Teams Cabin Worker Relationship Specialty Start Date End Date Elsewhere, Pcp PCP - General Family Medicine 03/10/20 11/30/21 Ervin Schroeder MD Referring Provider Family Medicine 03/24/[address] [place] [phone] documented as of this encounter
--- OUTSIDE RECORDS SUMMARY | 2022-02-16 12:29 | XMS_ITS | Encounter Summary ---
:1990 Author Organization [facility] Address [address] [place] [address] Care Team Providers Name Role Phone Elsewhere, Pcp Primary Care Provider Unavailable Reason for Visit Reason Comments Epistaxis (Nose Bleed) Encounter Details Date Type Department Care Team Description 07/25/2021 Nurse Triage Department of Joshua Resendiz isowen (Nose Medicine, Edwin Burgos, RSumaNSuma Bleed) [facility], in [place], [place] [address] [phone] Social History Tobacco Use Types Packs/Day Years [...] you attend hinduism or Patient refused 2021 jain services? 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 Call your doctor (or HRIS DEVELOPER/PA) when the office opens and make an [...] [2] direct pressure applied correctly Protocols used: [id number] documented in this encounter Plan of Treatment Upcoming Encounters Date Type Specialty Care Team Description Telemedicine Transplant 2 Appointment Radiology Matthew eJrome 2 Tyrell Rodriguez M.D. [address] [place] [phone] Appointment Gastroenterology and Adrianne, 2 Hepatology Yue Burciaga M.D. [address] [place] [phone] Virtual Visit Transplant LuisNew abdular 2 Tyrell Rodriguez M.D. [address] [place] [phone] Office Visit Gastroenterology and LuisNew abdular 2 Hepatology Tyrell Rodriguez M.D. [address] [place] [phone] Appointment Radiology Matthew Jerome 2 YTyrell M.D. [address] [place] [address] [phone] Hospital Gastroenterology and [facility] Cirrhos is Alcoholic (HCC) 2 Encounter Hepatology Tyrell Rodriguez M.D. [address] [place] [phone] Anesthesia Event Gastroenterology and [facility], 2 Hepatology Ervin Burgos M.D. [address] [place] [address] [phone] Surgery Gastroenterology and [facility] ESOPHAG OGASTRODUODENOSCOPY 2 Hepatology Tyrell Rodriguez M.D. [address] [place] [phone] Scheduled Procedures Name Priority Associated Diagnoses Date/Time ESOPHAGOGASTRODUODENOSCOPY Cirrhosis Alc oholic (HCC) 03/20/2022 8:45 AM RIG MECHANIC Hypertension Portal (HCC) documented as of this encounter Visit Diagnoses Not on filedocumented in this encounter Care Teams Tire Care Manager Relationship Specialty Start Date End Date Elsewhere, Pcp PCP - General Family Medicine 03/10/20 11/30/21 Ervin Schroeder MD Referring Provider Family Medicine 03/24/[address] [place] [phone] documented as of this encounter
--- OUTSIDE RECORDS SUMMARY | 2022-02-16 12:29 | XMS_ITS | Encounter Summary ---
:1990 Author Organization [facility] Address [address] [place] [address] Care Team Providers Name Role Phone Elsewhere, Pcp Primary Care Provider Unavailable Reason for Referral Outpatient (Routine) - Authorized Specialty Diagnoses / Procedures Referred By Contact Refer red To Contact Emergency Medicine Diagnoses Edema Peripheral Elevated Bilirubin Margy Paul M.D. [address] [phone] Referral ID Status Reason Start Date Expiration Date Visits V isits Requested Authorized [id number] Authorized 08/03/2021 08/03/2022 1 1 Outpatient (Routine) - Authorized Specialty Diagnoses / Procedures Referred By Contact Refer red To Contact Emergency Medicine Diagnoses Edema Peripheral Margy Paul M.D. [address] [phone] Referral ID Status Reason Start Date Expiration Date Visits V isits Requested Authorized [id number] Authorized 08/03/2021 08/03/2022 1 1 Reason for Visit Reason Comments Leg Swelling Pt states she has had bilate ral lower leg swelling for the past week. Encounter Details Date Type Department Care Team Description 08/02/2021 - Emergency [facility] Juliana Stevens D.O. [address] [place] [phone] Edema Peripheral (Primary Dx); 08/03/2021 [facility] Margy Paul M.D. [address] [place] [phone] Hypokalemia; Emergency Department Elevated Bilirubin; [address] [place] [phone] Social History Tobacco Use Types Packs/Day Years [...] you attend quaker or Patient refused 2021 congregational services? Do [...] or vocational [employer] degree you have received? Sex Assigned at Date Recorded Female 04/12/2021 7:39 PM CHARGE AIDE documented as of this encounter Last [...] CDT You have been evaluated in the [facility] Emergency Department today for your symptoms [...] from ED at 0700. Pt stated to auto service writer that her mother was on her way from [facility] pick her up at that time. Pt was still in lobby at 0900. Mother was not enroute-pt had never actually talked to her about a ride (had left a text message). Pt approached by auto service writer and asked what her plan was as hospital rules prohibit her from sitting in lobby until 1pm as that is when pt wants to go visit her friend on the unit. Pt then stated she didn't think she should have been discharged. Pt then informed by auto service writer that shehas the ability to [...] mother was on her way. Escorted to [facility] by security. Shyla Ojeda R.N. 08/03/21 0916 [...] of her legs. No beds here in [place]. Have had a conversation regarding admission vs [...] and Family: Twice a week ??? Attends Mormon Services: Never ??? Active Member of [employer] [...] this time. Unfortunately no beds here in [place] and patient prefers to wait until bed availability could potentially open up tomorrow rather than attempt transfer to [facility]. Transfer of patient's care pending [facility] attending Dr. Paul. Final Diagnoses: as of 08/06/21 1123 Edema Peripheral Hypokalemia Elevated Bilirubin Anemia INTERVENTIONS: Medications fentaNYL injection 25 mcg (SUBLIMAZE) (25 mcg intravenous Given 08/02/21 1120) fentaNYL injection 50 mcg (SUBLIMAZE) (50 mcg [...] Ketone Negative Bilirubin Negative pH 7.0 Specific [place] 1.005 Urobilinogen 0.2 White Blood Cells None [...] Appointment Radiology Matthew Jerome 2 YVikBLilian Bedolla [address] [place] [phone] Appointment Gastroenterology and Adrianne, 2 Hepatology Yue Burciaga M.D. [address] [place] [phone] Virtual Visit Transplant Matthew Jerome 2 YTyrell, Lilian [address] [place] [phone] Office Visit Gastroenterology and [facility] 2 Hepatology Tyrell Rodriguez M.D. [address] [place] [phone] Appointment Radiology Queenie Matthew 2 Tyrell Rodriguez M.D. [address] [place] [phone] [facility] Gastroenterology and [facility] Cirrhos is Alcoholic (HCC) 2 Encounter Hepatology Tyrell Rodriguez M.D. [address] [place] [phone] Anesthesia Event Gastroenterology and Rl, 2 Hepatology Ervin Burgos M.D. [address] [place] [phone] Surgery Gastroenterology and [facility] ESOPHAG OGASTRODUODENOSCOPY 2 Hepatology Tyrell Rodriguez M.D. [address] [place] [phone] Scheduled Procedures Name Priority Associated Diagnoses Date/Time ESOPHAGOGASTRODUODENOSCOPY Cirrhosis Alc oholic (HCC) 03/20/2022 8:45 AM CHARGE AIDE Hypertension Portal (HCC) Scheduled Referrals Name [...] Hepatic Function Panel (08/03/2021 4:27 AM CDT) [facility] Method Time Signature Bilirubin, Total, P [...] City/State/ZIP Code Phon e Number [facility] [address] [place] [address] [place] [address] [address] (ABNORMAL) CBC without Differential (08/03/2021 4:27 AM CDT) [facility] gist Method Time Signature Hemoglobin 7.5 (L) [...] City/State/ZIP Code Phon e Number [facility]- [facility] [place] [address] [place] [address] System in [place] [address] [place] [address] Urinalysis with Microscopic: Urine, Midstream (08/03/2021 12:07 AM CDT) Analysis Performed At [facility] Time Signature Source Urine, Urine, 08/03/2021 MKTO [...] 8.0 08/03/2021 12:13 AM CDT MK[place] Specific [place] 1.005 1.001 - 1.035 08/03/2021 12:13 AM [...] D.O. LAB URINE ORDERABLES Performing Organization Address [facility] Phon e Number [address] [address] [place] [address] System in [address] (ABNORMAL) NT-Pro B-Type Natriuretic Peptide (BNP) [...] Venous) PM CDT 10:50 PM CDT Juliana Stveens D.O. LAB BLOOD ADD-ON Performing Organization Address City/[facility]/ZIP [facility] Phon e Number [facility]- [address] [place] [address] [place] [address] System in [address] (ABNORMAL) Prothrombin Time (PT) (08/02/2021 10:44 PM CDT) [facility] Method Time Signature Prothrombin 29.9 (H) [...] D.O. LAB BLOOD ADD-ON Performing Organization Address City/[facility]/ZIP Code Phon e Number [facility]- [address] [place] [address] [place] [address] System in [address] Lipase (08/02/2021 10:44 PM CDT) P athologist Signature Lipase, P 14 13 - 60 U/L 08/02/2021 MKTO 11:31 PM CDT Specimen Anatomical Collection Method Collection Time Receive d Time (Source) Location / / Volume Laterality Blood (Blood, 08/02/2021 10:44 08/02/2021 Venous) PM CDT 10:50 PM CDT Juliana Stevens D.O. LAB BLOOD ADD-ON Performing Organization Address City/State/ZIP [facility] Phon e Number [address] [address] [place] [address] (ABNORMAL) Hepatic Function Panel (08/02/2021 10:44 PM CDT) [facility] Method Time Signature Bilirubin, Total, P [...] D.O. LAB BLOOD ADD-ON Performing Organization Address City/[facility] Phon e Number [address] [address] [place] [address] System in [address] (ABNORMAL) Ammonia (08/02/2021 10:44 PM CDT) P athologist Signature Ammonia, P 84 (H) <=51 08/02/2021 MKTO mcmol/L 11:18 PM CDT Specimen Anatomical Collection Method Collection Time Receive d Time (Source) Location / / Volume Laterality Blood (Blood, 08/02/2021 10:44 08/02/2021 Venous) PM CDT 10:50 PM CDT Juliana Stevens D.O. LAB BLOOD NON ADD-ON Performing Organization Address [facility]/ZIP [facility] Phon e Number [address] [address] [place] [address] System in [place] 739[address] [facility] (ABNORMAL) Basic Metabolic Panel (08/02/2021 10:44 PM [...] CDT eGFR-Black/Afri >90 >=60 08/02/2021 MKTO can [place] mL/min/BSA 11:31 PM CDT Comment: ----ADDITIONAL INFORMATION---- [...] City/State/ZIP Code Phon e Number [facility] [place] [address] [place] [address] System [address] hCG (Human Chorionic Gonadotropin), Quantitative, (08/02/2021 10:44 PM CDT) P athologist Signature HCG, <0.5 <5 IU/L 08/02/2021 [facility] Quantitative, 11:58 PM CDT , P [...] City/State/ZIP Code Phon e Number [facility]- [address] [place] [address] [place] [address] System in [address] (ABNORMAL) CBC with Differential, Blood (08/02/2021 10:44 PM CDT) [facility] gist Method Time Signature Hemoglobin 7.8 [...] City/State/ZIP Code Phon e Number [facility] [place] [address] [place] [address] System in [place] [address] [place] [address] ECG 12 Lead (08/02/2021 10:31 PM CDT) P athologist Signature Ventricular Rate 86 BPM MUSE ECG/Min VT Interval 166 ms MUSE QRSD Interval 92 ms MUSE QT Interval 404 ms MUSE QTC Interval 484 ms MUSE P [place] 61 degrees MUSE R [place] 56 degrees MUSE T Wave [place] 32 degrees MUSE Specimen Anatomical Collection Method [...] injection documented in this encounter Care Teams [employer] Member Relationship Specialty Start Date End Date Elsewhere, Pcp PCP - General Family Medicine 03/10/20 11/30/21 Ervin Schroeder MD Referring Provider Family Medicine 03/24/[address] [place] [address] documented as of this encounter
--- OUTSIDE RECORDS SUMMARY | 2022-02-16 12:30 | XMS_ITS | Encounter Summary ---
:1990 Author Organization [facility] Address [address] [place] [address] Care Team Providers Name Role Phone Elsewhere, Pcp Primary Care Provider Unavailable Encounter Details Date Type Department Care Team Description 07/08/2021 Clinical Communication Department of Kerry Naranjo Gastroenterology in [place], [place] C.N.P., M.S.N. 1025 [facility] [address] [place] [address] [place], [place] [phone] Social History Tobacco Use Types Packs/Day [...] you attend faith or Patient refused 2021 rastafari services? Do [...] at Date Recorded Female 04/12/2021 7:39 PM ACID BLEACHER documented as of this encounter Plan of Treatment Upcoming Encounters Date Type Specialty Care Team Description Telemedicine Transplant 2 Appointment Radiology Matthew Jerome 2 YVikBGraeme, Lilian [address] [place] [phone] Appointment Gastroenterology and Adrianne, 2 Hepatology Yue Burciaga M.D. [address] [place] [phone] Virtual Visit Transplant Matthew Jerome 2 YJoshuaBSumaBLilian Bedolla [address] [place] [phone] Office Visit Gastroenterology Matthew Ramirez 2 Hepatology Vik RodriguezBLilian Bedolla [address] [place] [phone] Appointment Radiology Queenie Matthew 2 YTyrell M.D. [address] [place] [phone] Hospital Gastroenterology and [facility] Cirrhos is Alcoholic (HCC) 2 Encounter Hepatology Tyrell Rodriguez M.D. [address] [place] [phone] Anesthesia Event Gastroenterology and [facility], 2 Hepatology Ervin Burgos M.D. [address] [place] [address] [phone] Surgery Gastroenterology and [facility] ESOPHAG OGASTRODUODENOSCOPY 2 Hepatology Tyrell Rodriguez M.D. [address] [place] [address] [phone] Scheduled Procedures Name Priority Associated Diagnoses Date/Time ESOPHAGOGASTRODUODENOSCOPY Cirrhosis Alc oholic (HCC) 03/20/2022 8:45 AM ACID BLEACHER Hypertension Portal (HCC) documented as of this encounter Visit Diagnoses Not on filedocumented in this encounter Care Teams Senior Principal Software Engineer Relationship Specialty Start Date End Date Elsewhere, Pcp PCP - General Family Medicine 03/10/20 11/30/21 Ervin Schroeder MD Referring Provider Family Medicine 03/24/[address] [place] [address] documented as of this encounter
--- OUTSIDE RECORDS SUMMARY | 2022-02-16 12:30 | XMS_ITS | Encounter Summary ---
:1990 Author Organization [facility] Address [address] [place] [address] Care Team Providers Name Role Phone Elsewhere, Pcp Primary Care Provider Unavailable Encounter Details Date Type Department Care Team Description 06/30/2021 Clinical Communication Department of Kerry Naranjo Gastroenterology in [place], [place] C.N.P., M.S.N. 1025 [facility] [address] [place] [address] [place], [place] [phone] Social History Tobacco Use Types Packs/Day [...] attend oriental orthodox or Patient refused 2021 scientology services? Do [...] at Date Recorded Female 04/12/2021 7:39 PM ASSISTANCE COORDINATOR documented as of this encounter Miscellaneous Notes Telephone Encounter - Felicita Spicer L.PSumaN. - 07/01/2021 4:12 PM CST Noted. STANCE COORDINATOR Telephone Encounter - Ellen Stevens R.N. - 07/01/2021 4:11 PM CST Please see message related to when pt is scheduled for FFP pre-EGD. Thanks, Ellen Stevens, RN, OCN STANCE COORDINATOR Telephone Encounter - Ruth Jeter - 07/01/2021 3:48 PM CST Pt has been scheduled 07/02 @ 1000. Pt is aware. STANCE COORDINATOR Telephone Encounter - Ellen Stevens RGabby - [...] their department. Thanks, Ellen Stevens RN, OCN STANCE COORDINATOR Telephone Encounter - Kerry Naranjo APRN, C.N.P., M.S.N. - 07/01/2021 11:47 AM CST Signed pended orders for transfusion of 2 units FFP with protocol and post transfusion INR STANCE COORDINATOR Telephone Encounter - Felicita Spicer L.P.N. - [...] had no further questions at this time. STANCE COORDINATOR Telephone Encounter - Kerry Naranjo APRN, C.N.P., [...] the above above arrangements. Thank you, Kerry STANCE COORDINATOR documented in this encounter Plan of Treatment Upcoming Encounters Date Type Specialty Care Team Description Telemedicine Transplant 2 Appointment Radiology Queenie Matthew 2 Tyrell Rodriguez M.D. [address] [place] [phone] Appointment Gastroenterology and Adrianne, 2 Hepatology Yue Burciaga M.D. [address] [place] [phone] Virtual Visit Transplant LuisMatthew abdul 2 Tyrlel Rodriguez M.D. [address] [place] [phone] Office Visit Gastroenterology and Matthew Jerome 2 Hepatology Tyrell Rodriguez M.D. [address] [place] [phone] Appointment Radiology LuisNew abdular 2 YTyrell M.D. [address] [place] [phone] Hospital Gastroenterology and [facility], Matthew Cirrhos is Alcoholic (HCC) 2 Encounter Hepatology Tyrell Rodriguez M.D. [address] [place] [phone] Anesthesia Event Gastroenterology and Rl, 2 Hepatology Ervin Burgos M.D. [address] [place] [phone] Surgery Gastroenterology and [facility], [place] ESOPHAG OGASTRODUODENOSCOPY 2 Hepatology Tyrell Rodriguez M.D. [address] [place] [phone] Scheduled Procedures Name Priority Associated Diagnoses Date/Time ESOPHAGOGASTRODUODENOSCOPY Cirrhosis Alc oholic (HCC) 03/20/2022 8:45 AM ASSISTANCE COORDINATOR Hypertension Portal (HCC) documented as of this encounter Results (ABNORMAL) Prothrombin Time (PT) (07/02/2021 1:22 PM ASSISTANCE COORDINATOR) [facility] gist Method Time Signature Prothrombin 24.6 (H) 9.4 - 12.5 07/02/2021 MKTO Time, P sec 1:39 PM ASSISTANCE COORDINATOR INR 2.2 0.9 - 1.1 07/02/2021 MKTO 1:39 PM ASSISTANCE COORDINATOR Comment: ----ADDITIONAL INFORMATION---- Standard intensity warfarin therapeutic range: 2.0 to 3.0 ?? High intensity warfarin therapeutic rang e: 2.5 to 3.5 Specimen Anatomical Collection Method Collection Time Receive d Time (Source) Location / / Volume Laterality Blood (Blood, 07/02/2021 1:22 PM 07/03/19 1:31 Venous) ASSISTANCE COORDINATOR PM ASSISTANCE COORDINATOR Kerry Naranjo APRN, C.N.P., M.S.N. LAB BLOOD ADD-ON Performing Organization Address City/State/ZIP Code Phon e Number [facility]- [address] [place] [address] [place] [address] System in [place] [address] [place] [address] documented in this encounter Visit Diagnoses Diagnosis Cirrhosis Alcoholic (HCC) - Primary Thrombocytopenia (HCC) Splenomegaly Acquired Hypertension Portal (HCC) Cirrhosis Alcoholic (HCC) Cirrhosis Alcoholic (HCC) Hypertension Portal (HCC) documented in this encounter Additional Health Concerns Infection Onset Date Last Indicated Resolved Time COVID19 Pending 06/30/2021 06/30/2021 06/30/2021 10:43 PM ASSISTANCE COORDINATOR documented as of this encounter Care Teams Sample Maker Hand Relationship Specialty Start Date End Date Elsewhere, Pcp PCP - General Family Medicine 03/10/20 11/30/21 Ervin Schroeder MD Referring Provider Family Medicine 03/24/[address] [place] [address] documented as of this encounter
--- OUTSIDE RECORDS SUMMARY | 2022-02-16 12:30 | XMS_ITS | Encounter Summary ---
:1990 Author Organization [facility] Address [address] [place] [address] Care Team Providers Name Role Phone Elsewhere, Pcp Primary Care Provider Unavailable Reason for Visit Reason Comments Altered Mental Status Urinary Tract Infection Encounter Details Date Type Department Care Team Description 07/19/2021 Nurse Triage Department [facility]; Urinary Tract Clinic, in [place], [address] Infection [place], [place] [address] [place] [phone] [place] [address] [phone] Social History Tobacco Use Types Packs/Day Years [...] you attend pentecostalism or Patient refused 2021 buddhist services? Do [...] at Date Recorded Female 04/12/2021 7:39 [address]MA[address] documented as of this encounter Miscellaneous Notes [...] got home from the Emergency Room in [place], patient is wondering if she can talk [...] Appointment Radiology Queenie Matthew 2 YTyrell M.D. [address] [place] [phone] Appointment Gastroenterology demian Silver 2 Hepatology Yue Burciaga M.D. [address] [place] [phone] Virtual Visit Transplant Luischantell Matthew 2 YTyrell M.D. [address] [place] [phone] Office Visit Gastroenterology and Matthew Jerome 2 Hepatology Tyrell Rodriguez M.D. [address] [place] [phone] Appointment Radiology Matthew Jerome 2 YTyrell M.D. [address] [place] [phone] Hospital Gastroenterology and QueenieMatthew Cirrhos is Alcoholic (HCC) 2 Encounter Hepatology yTrell Rodriguez M.D. [address] [place] [phone] Anesthesia Event Gastroenterology and Rl, 2 Hepatology Ervin Burgos M.D. [address] [place] [phone] Surgery Gastroenterology and Matthew Jerome ESOPHAG OGASTRODUODENOSCOPY 2 Hepatology Vik RodriguezLilian Salas [facility] [place] [phone] Scheduled Procedures Name Priority Associated Diagnoses Date/Time ESOPHAGOGASTRODUODENOSCOPY Cirrhosis Alc oholic (HCC) 03/20/2022 8:[address] Hypertension Portal (HCC) documented as of this encounter Visit Diagnoses Not on filedocumented in this encounter Care Teams Clinical Informatics Director Relationship Specialty Start Date End Date Elsewhere, Pcp PCP - General Family Medicine 03/10/20 11/30/21 Ervin Schroeder MD Referring Provider Family Medicine 03/24/211979 [address] [place] [address] documented as of this encounter
--- OUTSIDE RECORDS SUMMARY | 2022-02-16 12:30 | XMS_ITS | Encounter Summary ---
:1990 Author Organization [facility] Address [address] [place] [address] Care Team Providers Name Role Phone Elsewhere, Pcp Primary Care Provider Unavailable Reason for Visit Reason Comments Sleepiness Encounter Details Date Type Department Care Team Description 07/19/2021 Documentation Division of Gastroenterology Wali Baldwin in [facility] pedro Mendez M.D. [address] [place] [address] [place], [place] [phone] (Wo rk) Social History Tobacco Use Types [...] you attend pentecostal or Patient refused 2021 mu-ism services? Do [...] Date Recorded Female 04/12/2021 7:39 PM DIRECTOR SAFETY documented as of this encounter Progress Notes Wali Baldwin M.D. - 07/19/2021 2:04 AM CDT On-call Fellow Note: Patient is not a patient of [facility] but was connected to the on- [...] Radiology LuisMatthew abdul 2 Joshua RodriguezB.B.SSuma, Lilian [address] [place] [phone] Appointment Gastroenterology demian Silver, 2 Hepatology Yue Burciaga M.D. [address] [place] [phone] Virtual Visit Transplant Matthew Jerome 2 Elizabeth Rodriguez.B.B.SLilian Moise [address] [place] [phone] Office Visit Gastroenterology and Matthew eJrome 2 Hepatology Joshua RodriguezB.B.SLilian Moise [address] [place] [phone] Appointment Radiology Matthew Jerome 2 Y M.B.B.SSuma, Lilian [address] [place] [phone] Hospital Gastroenterology and Matthew Jerome Cirrhos is Alcoholic (HCC) 2 Encounter Hepatology Jennifer M.B.B.SLilian Moise [address] [place] [phone] Anesthesia Event Gastroenterology and Rl, 2 Hepatology Ervin Burgos M.D. [address] [place] [phone] Surgery Gastroenterology and [place], Matthew ESOPHAG OGASTRODUODENOSCOPY 2 Hepatology Tyrell Rodriguez M.D. [address] [place] [phone] Scheduled Procedures Name Priority Associated Diagnoses Date/Time ESOPHAGOGASTRODUODENOSCOPY Cirrhosis Alc oholic (HCC) 03/20/2022 8:45 AM DIRECTOR SAFETY Hypertension Portal (HCC) documented as of this encounter Visit Diagnoses Not on filedocumented in this encounter Care Teams Medical Officer Psychiatry Relationship Specialty Start Date End Date Elsewhere, Pcp PCP - General Family Medicine 03/10/20 11/30/21 Ervin Schroeder MD Referring Provider Family Medicine 03/24/[address] [place] [address] documented as of this encounter
--- OUTSIDE RECORDS SUMMARY | 2022-02-16 12:30 | XMS_ITS | Encounter Summary ---
:[address] [facility] Address [address] [place] [address] Care Team Providers Name Role Phone Elsewhere, Pcp Primary Care Provider Unavailable Reason for Referral Outpatient (Routine) - Closed Specialty Diagnoses / Referred By Contact Referred To Procedures Contact [facility] Katrin VIGIL.N.P., M.S.N. [address] [place] [address] Referral ID Status Reason Start Date Expiration Date Visits Requ ested Visits Authorized [id number] Closed 07/21/2021 07/21/2022 1 1 edication Prior Authorization - Closed Specialty Diagnoses / Procedures Referred By Contact Refer red To Contact Kerry Naranjo APRN, C.N.P., M.S.N. [address] [place] [address] Referral ID Status Reason Start Date Expiration Date Visits Requ ested Visits Authorized [id number] Closed 1 1 Reason for Visit Outpatient (Routine) - Closed Specialty Diagnoses / Referred By Contact Referred To Procedures Contact Gastroenterology and Kerry Naranjo, [facility] Hepatology Moira VIGIL, M.S.N. [address] [place] [address] Referral ID Status Reason Start Date Expiration Date Visits Requ ested Visits Authorized [id number] Closed 04/17/2021 04/17/2022 1 1 Encounter Details Date Type Department Care Team Description 07/21/2021 Telemedicine Department of Kerry Naranjo Cirrhosis Alc oholic (HCC) (Primary Dx); Gastroenterology in S, MATRIX BATH ATTENDANT, Ascites; [place], [place] C.N.P., Deficiency Vitamin D; 1025 [facility] M.S.N. 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 For emergency situation she should present to any emergency department that is closest to her. documented in this encounter Progress Notes Kerry Naranjo APRN, C.N.P., M.S.N. - 07/21/2021 2:45 PM CDT Kerry Naranjo APRN, C.N.P., M.S.N. [address] [place] [address] Patient Name: Catia Carias Date of : 1990 Date of encounter: 07/21/21 ELSEWHERE, PCP VIDEO VISIT Consult conducted via real-time audio/video technology by Kerry Naranjo APRN, C.N.P., M.S.N. at the [facility] to the patient in their home. At the time the patient was scheduled, the fresh food manager read the following script to the patient: [...] care provider Dr. Ervin Schroeder, from [facility] in [facility]; phone [phone], . She stateshe prescribed vitamin-D for GERD [...] and Family: Twice a week ??? Attends Faith Services: Never ??? Active Member of [employer] [...] taking this supplement as her attempts to continuous pickling line pickler from her pharmacy were unsuccessful. -ordered Vitamin [...] a internal medicine provider at [facility] or [place]; if she feels she needs to be seen more urgently; I would recommend the [facility] which is closest to her. For [...] Naranjo APRN, Katrin.NLala., M.S.N. Gastroenterology and Hepatology [facility] documented in this encounter Plan of Treatment Upcoming Encounters Date Type Specialty Care Team Description Telemedicine Transplant 2 Appointment Radiology Matthew Jerome 2 Y, VikBLilian Bedolla [address] [place] [phone] Appointment Gastroenterology and Adrianne, 2 Hepatology Yue Burciaga M.D. [address] [place] [address] Virtual Visit Transplant Matthew Jerome 2 Tyrell Rodriguez M.D. [address] [place] [phone] Office Visit Gastroenterology and Matthew Jerome 2 Hepatology Tyrell Rodriguez M.D. [address] [place] [phone] Appointment Radiology Matthew Jerome 2 Tyrell Rodriguez M.D. [address] [place] [phone] Hospital Gastroenterology and Matthew Jerome Cirrhos is Alcoholic (HCC) 2 Encounter Hepatology Tyrell Rodriguez M.D. [address] [place] [phone] Anesthesia Event Gastroenterology and Rl, 2 Hepatology Ervin Burgos M.D. [address] [place] [phone] Surgery Gastroenterology and uLischantellMatthew ESOPHAG OGASTRODUODENOSCOPY 2 Hepatology Joshua RodriguezBSumaBLilian Bedolla [address] [place] [phone] Scheduled Procedures Name Priority Associated Diagnoses Date/Time ESOPHAGOGASTRODUODENOSCOPY Cirrhosis Alc oholic (HCC) 03/20/2022 8:45 AM PROPERTY MAN Hypertension Portal (HCC) Scheduled Referrals Name Type [...] (HCC) documented in this encounter Care Teams Lathe Setup Operator Relationship Specialty Start Date End Date Elsewhere, Pcp PCP - General Family Medicine 03/10/20 11/30/21 Ervin Schroeder MD Referring Provider Family Medicine 03/24/[address] [place] [address] documented as of this encounter
--- OUTSIDE RECORDS SUMMARY | 2022-02-16 12:30 | XMS_ITS | Encounter Summary ---
:1990 Author Organization [facility] Address [address] [place] [address] Care Team Providers Name Role Phone Elsewhere, Pcp Primary Care Provider Unavailable Encounter Details Date Type Department Care Team Description 07/02/2021 Documentation Department of Gastroenterology Myke Fish, in [place], [facility] joe M.B.B.S. 1025 [facility] 10[address] [place] [address] [place], [place] [phone] Social History Tobacco Use Types Packs/Day [...] you attend adventism or Patient refused 2021 shinto services? 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 PHONE ASSEMBLER documented in this encounter Plan of Treatment Upcoming Encounters Date Type Specialty Care Team Description Telemedicine Transplant 2 Appointment Radiology Matthew Jerome 2 Y, VikBSumaSSumaLilian [address] [place] [phone] Appointment Gastroenterology and Adrianne, 2 Hepatology Yue Burciaga M.D. [address] [place] [phone] Virtual Visit Transplant Matthew Jerome 2 Joshua RodriguezBSumaBLilian Bedolla [address] [place] [phone] Office Visit Gastroenterology and Matthew Jerome 2 Hepatology Tyrell Rodriguez M.D. [address] [place] [phone] Appointment Radiology Matthew Jerome 2 Joshua RodriguezB.BLilian Bedolla [address] [place] [phone] Hospital Gastroenterology and Matthew Jerome Cirrhos is Alcoholic (HCC) 2 Encounter Hepatology Joshua RodriguezBSumaBLilian Bedolla [address] [place] [phone] Anesthesia Event Gastroenterology and Rl, 2 Hepatology Ervin Burgos M.D. [address] [place] [phone] Surgery Gastroenterology and Luischantell Matthew ESOPHAG OGASTRODUODENOSCOPY 2 Hepatology Joshua RodriguezB.BLilian Bedolla [address] [place] [phone] Scheduled Procedures Name Priority Associated Diagnoses Date/Time ESOPHAGOGASTRODUODENOSCOPY Cirrhosis Alc oholic (HCC) 03/20/2022 8:45 AM TELEPHONE ASSEMBLER Hypertension Portal (HCC) documented as of this encounter Visit Diagnoses Not on filedocumented in this encounter Care Teams Commercial Construction Project Manager Relationship Specialty Start Date End Date Elsewhere, Pcp PCP - General Family Medicine 03/10/20 11/30/21 Ervin Schroeder MD Referring Provider Family Medicine 03/24/[address] [place] [address] documented as of this encounter
--- OUTSIDE RECORDS SUMMARY | 2022-02-16 12:30 | XMS_ITS | Encounter Summary ---
:1990 Author Organization [facility] Address [address] [place] [address] Care Team Providers Name Role Phone Elsewhere, Pcp Primary Care Provider Unavailable Encounter Details Date Type Department Care Team Description 07/15/2021 Hospital Encounter Department of Kerry Naranjo is Alcoholic Laboratory Medicine S, STATISTICAL METHODS PROFESSOR, (HCC) in [place], C.N.PSuma, M.S.N[address] [place] [phone] Social History Tobacco Use Types Packs/Day [...] you attend amish or Patient refused 2021 synagogue services? 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 [address] [place] [phone] Virtual Visit Transplant LuisMatthew abdul 2 Y MSumaB.BLilian Bedolla [address] [place] [phone] Office Visit Gastroenterology and Matthew Jerome 2 Hepatology Joshua RodriguezBSumaBLilian Bedolla [address] [place] [phone] Appointment Radiology Queenie Matthew 2 YJoshuaB.B.Kath, Lilian [address] [place] [phone] [facility] Gastroenterology and Matthew Jerome Cirrhos is Alcoholic (HCC) 2 Encounter Hepatology Joshua RodriguezB.B.Lilian [place] [address] [place] [phone] Anesthesia Event Gastroenterology and Rl, 2 Hepatology Ervin Burgos M.D. [address] [place] [phone] Surgery Gastroenterology and Matthew Jerome ESOPHAG OGASTRODUODENOSCOPY 2 Hepatology Y M.B.B.Kath, Lilian [address] [place] [phone] Scheduled Procedures Name Priority Associated Diagnoses Date/Time ESOPHAGOGASTRODUODENOSCOPY Cirrhosis Alc oholic (HCC) 03/20/2022 8:45 AM LINER REPLACER Hypertension Portal (HCC) documented as of this [...] City/State/ZIP Code Phon e Number [facility] - [address] [place], [place] [address] [facility] [place] [address] Laboratories-[facility] [address] (ABNORMAL) Hepatic [...] Phon e Number [facility]- [address], [place] [address] [place] [address] System in [place] [address] [place] [address] Basic Metabolic Panel (07/15/2021 10:49 AM CDT) [...] >90 >=60 07/15/2021 [place] an Citizen Of [place] mL/min/BSA 1:52 PM CDT Comment: ----ADDITIONAL INFORMATION---- [...] Number [facility]- [address] [place] [address] [place] [address] System in [place] [address] [facility] (ABNORMAL) CBC with Differential, Blood (07/15/2021 10:49 AM CDT) [facility] Method Time Signature Hemoglobin 8.2 (L) [...] Address City/State/ZIP Code Phon e Number [place] [address] [place] [address] [facility] [place] [address] System [address] documented in this encounter Visit Diagnoses Diagnosis Cirrhosis Alcoholic (HCC) Cirrhosis Alcoholic (HCC) Cirrhosis Alcoholic (HCC) Hypertension Portal (HCC) documented in this encounter Care Teams Digital Account Director Relationship Specialty Start Date End Date Elsewhere, Pcp PCP - General Family Medicine 03/10/20 11/30/21 Ervin Schroeder MD Referring Provider Family Medicine 03/24/[address] [place] [address] documented as of this encounter
--- OUTSIDE RECORDS SUMMARY | 2022-02-16 12:30 | XMS_ITS | Encounter Summary ---
:1990 Author Organization [facility] Address [address] [place] [address] Care Team Providers Name Role Phone Elsewhere, Pcp Primary Care Provider Unavailable Reason for Visit Auth/Cert Specialty Diagnoses / Procedures Referred By Contact Refer red To Contact Diagnoses Cirrhosis Alcoholic (HCC) Cirrhosis Alcoholic (HCC) [K70.30] Procedures [place] EGD TRANSORAL DX ESOPHAGOGASTRODUODENOSCOPY Referral ID Status Reason Start Date Expiration Date Visits Requ ested Visits Authorized [id number] 1 1 Encounter Details Date Type Department Care Team Description 07/02/2021 Hospital Encounter Department of David Fish, Gastroenterology in M.B.B.S[address] [phone] Social History Tobacco Use Types [...] you attend restoration or Patient refused 2021 sabianism services? 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 [address] [place] [phone] Appointment Gastroenterology demian Silver, 2 Hepatology Yue Burciaga M.D. [address] [place] [phone] Virtual Visit Transplant LuisNew abdular 2 YTyrell M.D. [address] [place] [phone] Office Visit Gastroenterology and LuisNew abdular 2 Hepatology Tyrell Rodriguez M.D. [address] [place] [phone] Appointment Radiology LuisNew abdular 2 YTyrell M.D. [address] [place] [phone] Hospital Gastroenterology and Matthew Jerome Cirrhos is Alcoholic (HCC) 2 Encounter Hepatology Tyrell Rodriguez M.D. [address] [place] [phone] Anesthesia Event Gastroenterology and Rl, 2 Hepatology Ervin Burgos M.D. [address] [place] [phone] Surgery Gastroenterology and LuisNew abdular ESOPHAG OGASTRODUODENOSCOPY 2 Hepatology Tyrell Rodriguez M.D. [address] [place] [address] [place] [address] Scheduled Procedures Name Priority Associated Diagnoses Date/Time ESOPHAGOGASTRODUODENOSCOPY Cirrhosis Alc oholic (HCC) 03/20/2022 8:45 AM SHIPPER/RECEIVER Hypertension Portal (HCC) documented as of this encounter Visit Diagnoses Diagnosis Cirrhosis Alcoholic (HCC) - Primary Cirrhosis Alcoholic (HCC) Cirrhosis Alcoholic (HCC) Hypertension Portal (HCC) documented in this encounter Admitting Diagnoses Diagnosis Cirrhosis Alcoholic (HCC) documented in this encounter Care Teams Unix System Administrator Relationship Specialty Start Date End Date Elsewhere, Pcp PCP - General Family Medicine 03/10/20 11/30/21 Ervin Schroeder MD Referring Provider Family Medicine 03/24/[address] [place] [address] documented as of this encounter
--- OUTSIDE RECORDS SUMMARY | 2022-02-16 12:30 | XMS_ITS | Encounter Summary ---
:1990 Author Organization [facility] Address [address] [place] [address] Care Team Providers Name Role Phone Elsewhere, Pcp Primary Care Provider Unavailable Encounter Details Date Type Department Care Team Description 07/15/2021 Clinical Communication Department of Felicita Spicer Gastroenterology in E, L.P.N. [place], [place] [phone] [place] [address] ([facility]) [place] [address] Social History Tobacco Use Types Packs/Day [...] you attend hindu or Patient refused 2021 rastafarian services? 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 Monotype Setter informed her that we were aware of the labs from outside facilities and that director underwriter sales had asked Kerry to review these outside labs last week and had not heard back regarding any recommendations. Informed her I would follow up with Kerry and get back to her. Monotype Setter discussed patient with Kerry Naranjo NP. Since patient is reported feeling more tired and weak lately the provider would like to repeat some labs. Provider requests patient has these completed at [facility] so that we are able [...] best that they are done at a [facility] so that Kerry can be alerted [...] shedid not received a blood transfusion at [facility]. Informed her that once the lab results were back Kerry would be able to best make a plan of care for her. Informed her she should keep her appointment with Kerry on Friday 07/21. documented in this encounter Plan of Treatment Upcoming Encounters Date Type Specialty Care Team Description Telemedicine Transplant 2 Appointment Radiology Matthew Jerome 2 Tyrell Rodriguez M.D. [address] [place] [phone] Appointment Gastroenterology and Adrianne, 2 Hepatology Yue Burciaga M.D. [address] [place] [phone] Virtual Visit Transplant Matthew Jerome 2 Tyrell Rodriguez M.D. [address] [place] [phone] Office Visit Gastroenterology and Matthew Jerome 2 Hepatology Vik RodriguezBLilian Bedolla [address] [place] [phone] Appointment Radiology Matthew Jerome 2 YVikBLilian Bedolla [address] [place] [phone] Hospital Gastroenterology and [facility] Cirrhos is Alcoholic (HCC) 2 Encounter Hepatology Tyrell Rodriguez M.D. [address] [place] [phone] Anesthesia Event Gastroenterology and Rl, 2 Hepatology Ervin Burgos M.D. [address] [place] [phone] Surgery Gastroenterology and [facility] ESOPHAG OGASTRODUODENOSCOPY 2 Hepatology Tyrell Rodriguez M.D. [address] [place] [phone] Scheduled Procedures Name Priority Associated Diagnoses Date/Time ESOPHAGOGASTRODUODENOSCOPY Cirrhosis Alc oholic (HCC) 03/20/2022 8:45 AM RESAW MACHINE OPERATOR Hypertension Portal (HCC) documented as of this encounter Results (ABNORMAL) Hepatic Function Panel (07/15/2021 10:49 AM CDT) [facility] Method Time Signature Bilirubin, Total, [...] 07/15/2021 Venous) AM CDT 12:57 PM CDT Keryr Naranjo APRN, C.N.P., M.S.N. LAB BLOOD ADD-ON Performing Organization Address City/State/ZIP Code Phon e Number [facility]- [address] [place] [address] [place] [address] System in [place] [address] Basic Metabolic Panel (07/15/2021 10:49 [...] CDT eGFR-Black/Afric >90 >=60 07/15/2021 [place] an [place] mL/min/BSA 1:52 PM CDT Comment: ----ADDITIONAL INFORMATION---- [...] Code Phon e Number [facility]- [address] [place] [address] [place] [address] System in [place] 2199 [facility] (ABNORMAL) CBC with Differential, Blood (07/15/2021 10:49 AM CDT) [facility] Method Time Signature Hemoglobin 8.2 [...] Organization Address City/State/ZIP Code Phon e Number [place] [address] [place] [address] [facility] [address] [place] [address] documented in this encounter Visit Diagnoses Diagnosis Cirrhosis Alcoholic (HCC) - Primary Cirrhosis Alcoholic (HCC) Cirrhosis Alcoholic (HCC) Hypertension Portal (HCC) documented in this encounter Additional Health Concerns Infection Onset Date Last Indicated Resolved Time COVID19 Pending 07/25/2021 07/25/2021 07/25/2021 10:07 PM CDT documented as of this encounter Care Teams Rn Document Improvement Relationship Specialty Start Date End Date Elsewhere, Pcp PCP - General Family Medicine 03/10/20 11/30/21 Ervin Schroeder MD Referring Provider Family Medicine 03/24/[address] [place] [address] documented as of this encounter
--- OUTSIDE RECORDS SUMMARY | 2022-02-16 12:30 | XMS_ITS | Encounter Summary ---
:1990 Author Organization [facility] Address [address] [place] [address] Care Team Providers Name Role Phone Elsewhere, Pcp Primary Care Provider Unavailable Encounter Details Date Type Department Care Team Description 07/16/2021 Clinical Communication Department of Kerry Naranjo Gastroenterology in [place], [place] C.N.P., M.S.N. 1025 [facility] 1025 [place] [address] [place], [place] [phone] Social History Tobacco Use Types Packs/Day [...] you attend buddhist or Patient refused 2021 sikhism services? 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 [address] [place] [phone] Virtual Visit Transplant LuisMatthew abdul 2 Y MSumaB.BLilian Bedolla [address] [place] [phone] Office Visit Gastroenterology and Matthew Jerome 2 Hepatology Joshua RodriguezBSumaBLilian Bedolla [address] [place] [phone] Appointment Radiology Queenie Matthew 2 YJoshuaB.B.Kath, Lilian [address] [place] [phone] [facility] Gastroenterology and Matthew Jerome Cirrhos is Alcoholic (HCC) 2 Encounter Hepatology Joshua RodriguezB.B.Lilian [place] [address] [place] [phone] Anesthesia Event Gastroenterology and Rl, 2 Hepatology Ervin Burgos M.D. [address] [place] [phone] Surgery Gastroenterology and Matthew Jerome ESOPHAG OGASTRODUODENOSCOPY 2 Hepatology Y M.B.B.Kath, Lilian [address] [place] [phone] Scheduled Procedures Name Priority Associated Diagnoses Date/Time ESOPHAGOGASTRODUODENOSCOPY Cirrhosis Alc oholic (HCC) 03/20/2022 8:45 AM EQUIPMENT CLEANER Hypertension Portal (HCC) documented as of this encounter Visit Diagnoses Not on filedocumented in this encounter Care Teams Ux Design Lead Relationship Specialty Start Date End Date Elsewhere, Pcp PCP - General Family Medicine 03/10/20 11/30/21 Ervin Schroeder MD Referring Provider Family Medicine 03/24/[address] [place] [phone] documented as of this encounter
--- OUTSIDE RECORDS SUMMARY | 2022-02-16 12:30 | XMS_ITS | Encounter Summary ---
:1990 Author Organization [facility] Address [address] [place] [address] Care Team Providers Name Role Phone Elsewhere, Pcp Primary Care Provider Unavailable Encounter Details Date Type Department Care Team Description 07/18/2021 Nurse Triage Department of Samia Boyd ch, R.NSuma Medicine, [facility], in [address] [place], [place] [address] [place] [address] [place] [address] [phone] Social History Tobacco Use Types Packs/Day Years [...] you attend samaritan or Patient refused 2021 baptist services? 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 - 07/18/2021 10:48 PM CDT Chief Complaint / Reason for Call Patient is a 31 y.o. female calling regarding No chief complaint on file.. Assessment Concern: Patient seen in [place] ED via ambulance this evening, boyfriend found [...] does have appointment Friday 07/21 with her Disability Coordinator Kerry Naranjo CNP for followup. Patient generally frustrated she wasn't given much information or answers in ED visit. Present for: today Home cares tried: takes medications as prescribed Calling to request: advice The recommended disposition is Information or Advice Only Call. Patient agrees to call back if worsens, has followup appointment with circuit clerk Kerry Naranjo who has been following her, also with her PCP outside [place] on Wednesday, 07/23. Patient and significant other agree to call back if worsens or have additional questions. documented in this encounter Plan of Treatment Upcoming Encounters Date Type Specialty Care Team Description Telemedicine Transplant 2 Appointment Radiology LuisNew abdular 2 YTyrell M.D. [address] [place] [address] [phone] Appointment Gastroenterology demian Silver, 2 Hepatology Yue Burciaga M.D. [address] [place] [phone] Virtual Visit Transplant LuisMatthew abdul 2 YTyrell M.D. [address] [place] [address] [phone] Office Visit Gastroenterology and LuisMatthew abdul 2 Hepatology Tyrell Rodriguez M.D. [address] [place] [address] [phone] Appointment Radiology LuisMatthew abdul 2 YTyrell M.D. [address] [place] [phone] Hospital Gastroenterology and LuisMatthew abdul Cirrhos is Alcoholic (HCC) 2 Encounter Hepatology Tyrell Rodriguez M.D. [address] [place] [address] [phone] Anesthesia Event Gastroenterology and Rl, 2 Hepatology Ervin Burgos M.D. [address] [place] [phone] Surgery Gastroenterology and Mousa, Matthew ESOPHAG OGASTRODUODENOSCOPY 2 Hepatology Tyrell Rodriguez M.D. [address] [place] [phone] Scheduled Procedures Name Priority Associated Diagnoses Date/Time ESOPHAGOGASTRODUODENOSCOPY Cirrhosis Alc oholic (HCC) 03/20/2022 8:45 AM MINING DETAIL DRAFTSPERSON Hypertension Portal (HCC) documented as of this encounter Visit Diagnoses Not on filedocumented in this encounter Care Teams User Experience Team Lead Relationship Specialty Start Date End Date Elsewhere, Pcp PCP - General Family Medicine 03/10/20 11/30/21 Ervin Schroeder MD Referring Provider Family Medicine 03/24/[address] [place] [phone] documented as of this encounter
--- OUTSIDE RECORDS SUMMARY | 2022-02-16 12:30 | XMS_ITS | Encounter Summary ---
:1990 Author Organization [facility] Address [address] [place] [address] Care Team Providers Name Role Phone Elsewhere, Pcp Primary Care Provider Unavailable Encounter Details Date Type Department Care Team Description 07/06/2021 Orders Only Department of Gastroenterology Jennifer Fish, [facility] [address] [facility] 10[address] [place] [address] [place], [place] [phone] (Wo rk) Social History Tobacco Use [...] you attend rastafarian or Patient refused 2021 church services? 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 [address] [place] [phone] Virtual Visit Transplant Matthew Jerome 2 YJoshuaBSumaBLilian Bedolla [address] [place] [address] [phone] Office Visit Gastroenterology and Matthew Jerome 2 Hepatology Vik RodriguezBLilian Bedolla [address] [place] [address] [phone] Appointment Radiology Matthew Jerome 2 YTyrell M.D. [address] [place] [phone] Hospital Gastroenterology and Matthew Jerome Cirrhos is Alcoholic (HCC) 2 Encounter Hepatology Tyrell Rodriguez M.D. [address] [place] [phone] Anesthesia Event Gastroenterology and Rl, 2 Hepatology Ervin Burgos M.D. [address] [place] [phone] Surgery Gastroenterology and Dechantell Matthew ESOPHAG OGASTRODUODENOSCOPY 2 Hepatology Tyrell Rodriguez M.D. [address] [place] [phone] Scheduled Procedures Name Priority Associated Diagnoses Date/Time ESOPHAGOGASTRODUODENOSCOPY Cirrhosis Alc oholic (HCC) 03/20/2022 8:45 AM LIBRARY CIRCULATION ASSISTANT Hypertension Portal (HCC) documented as of this encounter Visit Diagnoses Not on filedocumented in this encounter Additional Health Concerns Infection Onset Date Last Indicated Resolved Time COVID19 Pending 07/06/2021 07/06/2021 07/06/2021 11:34 AM LIBRARY CIRCULATION ASSISTANT documented as of this encounter Care Teams Loftsman/Woman Relationship Specialty Start Date End Date Elsewhere, Pcp PCP - General Family Medicine 03/10/20 11/30/21 Ervin Schroeder MD Referring Provider Family Medicine 03/24/[address] [place] [address] documented as of this encounter
--- OUTSIDE RECORDS SUMMARY | 2022-02-16 12:30 | XMS_ITS | Encounter Summary ---
:1990 Author Organization [facility] Address [address] [place] [address] Care Team Providers Name Role Phone Elsewhere, Pcp Primary Care Provider Unavailable Encounter Details Date Type Department Care Team Description 07/06/2021 Documentation Department of Gastroenterology Myke Fish, in [place], [facility] joe M.B.B.S. 1025 [facility] 1025 [place] [address] [place], [place] [phone] Social History Tobacco Use Types Packs/Day [...] you attend yazidi or Patient refused 2021 rastafarian services? 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 ING CLERK documented in this encounter Plan of Treatment Upcoming Encounters Date Type Specialty Care Team Description Telemedicine Transplant 2 Appointment Radiology Matthew Jerome 2 YTyrell M.D. [address] [place] [phone] Appointment Gastroenterology demian Silver, 2 Hepatology Yue Burciaga M.D. [address] [place] [phone] Virtual Visit Transplant Matthew Jerome 2 YTyrell M.D. [address] [place] [phone] Office Visit Gastroenterology and Matthew Jerome 2 Hepatology Tyrell Rodriguez M.D. [address] [place] [phone] Appointment Radiology LuisMatthew abdul 2 YTyrell M.D. [address] [place] [phone] Hospital Gastroenterology and Matthew Jerome Cirrhos is Alcoholic (HCC) 2 Encounter Hepatology Tyrell Rodriguez M.D. [address] [place] [phone] Anesthesia Event Gastroenterology and Rl, 2 Hepatology Ervin Burgos M.D. [address] [place] [phone] Surgery Gastroenterology and Matthew Jerome ESOPHAG OGASTRODUODENOSCOPY 2 Hepatology Vik RodriguezBGraeme, Lilian [address] [place] [phone] Scheduled Procedures Name Priority Associated Diagnoses Date/Time ESOPHAGOGASTRODUODENOSCOPY Cirrhosis Alc oholic (HCC) 03/20/2022 8:45 AM EDITING CLERK Hypertension Portal (HCC) documented as of this encounter Visit Diagnoses Not on filedocumented in this encounter Care Teams Surgery Tech Relationship Specialty Start Date End Date Elsewhere, Pcp PCP - General Family Medicine 03/10/20 11/30/21 Ervin Schroeder MD Referring Provider Family Medicine 03/24/[address] [place] [address] documented as of this encounter
--- OUTSIDE RECORDS SUMMARY | 2022-02-16 12:30 | XMS_ITS | Encounter Summary ---
:1990 Author Organization [facility] Address [address] [place] [address] Care Team Providers Name Role Phone Elsewhere, Pcp Primary Care Provider Unavailable Reason for Visit Reason Comments Outpatient Infusion Fresh frozen plasma Encounter Details Date Type Department Care Team Description 07/02/2021 Infusion Department of Infusion Kerry Naranjo S, Jt hrombocytopenia (HCC) (Primary Dx); Therapy in [place], J2EE DEVELOPER, C.N.P., Cirrhos is Alcoholic (HCC); [place] M.S.N. Splenomegaly Acquired; [address] [facility] [address] 1025 [facility] Hypertension Portal (HCC) [place] [address] [place], [place] [phone] Social History Tobacco Use Types Packs/Day [...] you attend congregation or Patient refused 2021 episcopalian services? Do you belong to any clubs or No 02/10/2022 organizations such as congregation groups, unions, fraEdgar or athletic groups, or school groups? 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 documented as of this encounter Last Filed Vital Signs Vital Sign Reading Time Taken Comments Blood Pressure 95/53 07/02/2021 12:56 PM TAILOR FITTER Pulse 91 07/02/2021 12:56 PM TAILOR FITTER Temperature 38.2 ??C (100.8 ??F) 07/02/2021 12:56 PM TAILOR FITTER Respiratory Rate 18 07/02/2021 12:56 PM TAILOR FITTER Oxygen Saturation 95% 07/02/2021 12:56 PM TAILOR FITTER Inhaled Oxygen Concentration - - Weight - - Height - - Body Mass Index - - documented in this encounter Plan of Treatment Upcoming Encounters Date Type Specialty Care Team Description Telemedicine Transplant 2 Appointment Radiology Matthew Jerome 2 YVikBSumaSSuma, Lilian [address] [place] [phone] Appointment Gastroenterology and Adrianne, 2 Hepatology Yue Burciaga M.D. [address] [place] [address] [phone] Virtual Visit Transplant Matthew Jerome 2 YTyrell M.D. [address] [place] [phone] Office Visit Gastroenterology and Matthew Jerome 2 Hepatology Tyrell Rodriguez M.D. [address] [place] [phone] Appointment Radiology LuisMatthew abdul 2 YTyrell M.D. [address] [place] [phone] [facility] Cirrhos is Alcoholic (HCC) 2 Encounter Hepatology Tyrell Rodriguez M.D. [address] [place] [phone] Anesthesia Event Gastroenterology and Rl, 2 Hepatology Ervin Burgos M.D. [address] [place] [address] [phone] Surgery Gastroenterology and Matthew Jerome ESOPHAG OGASTRODUODENOSCOPY 2 Hepatology Tyrell Rodriguez M.D. [address] [place] [phone] Pending Results Name Type Priority Associated Diagnoses Date/Ti mn Prepare Fresh Blood Bank Routine Thrombocytopenia (HCC) 07/02/2021 10:14 AM Frozen Plasma : 2 Cirrhosis Alcoholic (HC C) TAILOR FITTER Units Scheduled Procedures Name Priority Associated Diagnoses Date/Time ESOPHAGOGASTRODUODENOSCOPY Cirrhosis Alc oholic (HCC) 03/20/2022 8:45 AM TAILOR FITTER Hypertension Portal (HCC) documented as of this encounter Procedures Procedure Name Priority Date/Time Associated Diagnosis Comme nts PROTHROMBIN TIME Routine 07/02/2021 1:22 Cirrhosis Alcoholic R esults for this (PT), P PM TAILOR FITTER (HCC) procedure are in Thrombocytopenia (HCC) the results Splenomegaly Acq uired section. Hypertension Portal (HCC) TRANSFUSE FRESH Routine 07/02/2021 11:59 Thrombocytopeni a (HCC) FROZEN PLASMA AM TAILOR FITTER Cirrhosis Alcoholic (HCC) TRANSFUSE FRESH Routine 07/02/2021 10:57 Thrombocytopeni a (HCC) FROZEN PLASMA AM TAILOR FITTER Cirrhosis Alcoholic (HCC) PREPARE FRESH Routine 07/02/2021 10:14 Thrombocytopeni a (HCC) FROZEN PLASMA AM TAILOR FITTER Cirrhosis Alcoholic (HCC) documented in this encounter Results (ABNORMAL) Prothrombin Time (PT) (07/02/2021 1:22 PM TAILOR FITTER) [facility] Method Time Signature Prothrombin 24.6 (H) 9.4 - 12.5 07/02/2021 MKTO Time, P sec 1:39 PM TAILOR FITTER INR 2.2 0.9 - 1.1 07/02/2021 MKTO 1:39 PM TAILOR FITTER Comment: ----ADDITIONAL INFORMATION---- Standard intensity warfarin therapeutic range: 2.0 to 3.0 ?? High intensity warfarin therapeutic rang e: 2.5 to 3.5 Specimen Anatomical Collection Method Collection Time Receive d Time (Source) Location / / Volume Laterality Blood (Blood, 07/02/2021 1:22 PM 07/03/19 1:31 Venous) TAILOR FITTER PM TAILOR FITTER Lowell Newsome APRNNLala., M.S.N. LAB BLOOD ADD-ON Performing Organization Address City/State/ZIP Code Phon e Number [facility]- [address] [place] [address] [place] [address] [address] Transfuse Fresh Frozen Plasma :INR >2: Invasive proc scheduled; 180 mL/hr (07/02/2021 12:57 PM TAILOR FITTER) Katrin Newsome APRN.N.Frances, M.S.N. BLOOD TRANSFUSION ORDERABLES Transfuse Fresh Frozen Plasma :INR >2: Invasive proc scheduled; 180 mL/hr, 2 Units (07/02/2021 12:57 PM TAILOR FITTER) Kerry Naranjo APRN, C.N.P., M.S.N. BLOOD TRANSFUSION ORDERABLES Transfuse Fresh Frozen Plasma :INR >2: Invasive proc scheduled; 180 mL/hr (07/02/2021 11:50 AM TAILOR FITTER) Kerry Naranjo APRN, C.N.P., M.S.N. BLOOD TRANSFUSION [...] tablet 650 mg Given 07/02/2021 1:04 PM TAILOR FITTER 650 mg (TYLENOL) 650 mg, oral, Once as needed, other, blood products administration, Starting on Wed07/02/21 at 1013, For 1 dose documented in this encounter Care Teams Boring Machine Operator Horizontal Relationship Specialty Start Date End Date Elsewhere, Pcp PCP - General Family Medicine 03/10/20 11/30/21 Ervin Schroeder MD Referring Provider Family Medicine 03/24/[address] [place] [address] documented as of this encounter
--- OUTSIDE RECORDS SUMMARY | 2022-02-16 12:30 | XMS_ITS | Encounter Summary ---
:1990 Author Organization [facility] Address [address] [place] [address] Care Team Providers Name Role Phone Elsewhere, Pcp Primary Care Provider Unavailable Reason for Visit Reason Comments Fever Encounter Details Date Type Department Care Team Description 07/06/2021 Nurse Triage Department of Arabella Wright R.N. Fever Medicine in [place], [address] [place] [address] [address] [phone] [place] [address] Social History Tobacco Use Types [...] you attend moravian or Patient refused 2021 protestant services? 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 - 07/06/2021 2:57 AM CST Chief Complaint / Reason for Call Patient is a 30 y.o. female calling regarding Fever. Assessment Concern: 100.4 fever with stage 4 liver cirrhosis diagnosis. No other new symptoms. Present for: Armstrong somewhat feverish over past 24 hours, but more noticeable in past 2 hours. Home cares tried: None Calling to request: Advice The recommended disposition is Information or Advice Only Call. .Transferred for [facility] specialty. Patient unable to take OTCs and is unsure of urgency of fever with medical condition. NESS RELATIONS MANAGER documented in this encounter Plan of Treatment Upcoming Encounters Date Type Specialty Care Team Description Telemedicine Transplant 2 Appointment Radiology Matthew Jerome 2 YTyrell M.D. [address] [place] [phone] Appointment Gastroenterology demian Silver, 2 Hepatology Yue Buricaga M.D. [address] [place] [address] [place] [phone] Virtual Visit Transplant Matthew Jerome 2 Tyrell Rodriguez, Lilian [address] [place] [phone] Office Visit Gastroenterology and Matthew Jerome 2 Hepatology Tyrell Rodriguez M.D. [address] [place] [phone] Appointment Radiology LuisMatthew abdul 2 Tyrell Rodirguez M.D. [address] [place] [phone] [facility] Gastroenterology and Matthew Jerome Cirrhos is Alcoholic (HCC) 2 Encounter Hepatology Tyrell Rodriguez M.D. [address] [place] [phone] Anesthesia Event Gastroenterology and Rl, 2 Hepatology Ervin Burgos M.D. [address] [place] [phone] Surgery Gastroenterology and Matthew Jerome ESOPHAG OGASTRODUODENOSCOPY 2 Hepatology Tyrell Rodriguez, Lilian [address] [place] [phone] Scheduled Procedures Name Priority Associated Diagnoses Date/Time ESOPHAGOGASTRODUODENOSCOPY Cirrhosis Alc oholic (HCC) 03/20/2022 8:45 AM BUSINESS RELATIONS MANAGER Hypertension Portal (HCC) documented as of this encounter Visit Diagnoses Not on filedocumented in this encounter Care Teams Telephone Services Sales Representative Relationship Specialty Start Date End Date Elsewhere, Pcp PCP - General Family Medicine 03/10/20 11/30/21 Ervin Schroeder MD Referring Provider Family Medicine 03/24/[address] [place] [phone] documented as of this encounter
--- OUTSIDE RECORDS SUMMARY | 2022-02-16 12:30 | XMS_ITS | Encounter Summary ---
:1990 Author Organization [facility] Address [address] [place] [address] Care Team Providers Name Role Phone Elsewhere, Pcp Primary Care Provider Unavailable Reason for Visit Reason Comments Fever Fever during noc 100.4, Dr. Fish recommending eval for labs due to cirrhosis. Encounter Details Date Type Department Care Team Description 07/06/2021 Emergency [facility] Juan Dang Fever Of Unknown Origin Martin Holloway M.D. (Primary Dx) Emergency Department [address] [id number] [facility] [phone] Social History Tobacco Use Types Packs/Day Years [...] you attend rastafari or Patient refused 2021 bahai services? Do you belong to any clubs or No 02/10/2022 organizations such as rastafari groups, unions, fraiSites or athletic groups, or school groups? 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/2021 7:39 PM GRADES 9 THROUGH 12 TEACHER documented as of this encounter Last Filed Vital Signs Vital Sign Reading Time Taken Comments Blood Pressure 95/50 07/06/2021 1:30 PM GRADES 9 THROUGH 12 TEACHER Pulse 87 07/06/2021 1:45 PM GRADES 9 THROUGH 12 TEACHER Temperature 37.1 ??C (98.8 ??F) 07/06/2021 1:45 PM GRADES 9 THROUGH 12 TEACHER Respiratory Rate 15 07/06/2021 1:45 PM GRADES 9 THROUGH 12 TEACHER Oxygen Saturation 98% 07/06/2021 1:45 PM GRADES 9 THROUGH 12 TEACHER Inhaled Oxygen Concentration - - Weight 55.1 kg (121 lb 7.6 oz) 07/06/2021 10:41 AM GRADES 9 THROUGH 12 TEACHER Height 157.5 cm (5' 2) 07/06/2021 10:41 AM GRADES 9 THROUGH 12 TEACHER Body Mass Index 22.22 07/06/2021 10:41 AM GRADES 9 THROUGH 12 TEACHER documented in this encounter Discharge Instructions Discharge Juan Forrester M.D. - 07/06/2021 1:[address] PM [address] As per Dr. Fish you may take Tylenol as needed for pain, please limit to less than 2,000 mg a day Return to ER if symptoms persist, worsen, or any concerns Please follow all verbal instructions given to you Please follow-up with your primary care doctor or blade filer Please read all attached documents at discharge It was a pleasure taking care of you today. We hope you feel better soon ES 9 THROUGH 12 TEACHER documented in this encounter Medications at Time [...] alcoholic liver cirrhosis referred to ED by blade filer for subjective fever. Patient states she felt [...] Negative Bilirubin Moderate (*) pH 7.0 Specific [place] 1.020 Urobilinogen 1.0 White Blood Cells None [...] PCR Undetected Respiratory Syncytial Virus, PCR Undetected [id number], PCR Undetected Specimen Source Swab, Nasopharynx BACTERIA / INES CULTURE, BLOOD Narrative: Specimen Information: Specimen ID: [id number] Specimen Source: Blood, Peripheral Draw Specimen Comment: Specimen Source Site: Blood Specimen Collection Start Date: 07/06/2021 11:15 AM Specimen Received Date: 07/06/2021 11:30 AM Specimen ID: [id number] Specimen Source: Blood, Peripheral Draw Specimen Comment: Specimen Source Site: Blood Specimen Collection Start Date: 07/06/2021 11:15 AM Specimen Received Date: 07/06/2021 11:30 AM Specimen ID: [id number] Specimen Source: Blood, Peripheral Draw Specimen Comment: Specimen Source Site: Blood Specimen Collection Start Date: 07/06/2021 11:15 AM Specimen Received Date: 07/06/2021 11:30 AM BACTERIA / INES CULTURE, BLOOD Narrative: Specimen Information: Specimen ID: [id number] Specimen Source: Blood, Peripheral Draw Specimen Comment: Specimen Source Site: Blood Specimen Collection Start Date: 07/06/2021 11:27 AM Specimen Received Date: 07/06/2021 11:30 AM Specimen ID: [id number] Specimen Source: Blood, Peripheral Draw Specimen Comment: Specimen Source Site: Blood Specimen Collection Start Date: 07/06/2021 11:30 AM Specimen Received Date: 07/06/2021 11:30 AM Specimen ID: [id number] Specimen Source: Blood, Peripheral Draw Specimen Comment: [...] alcoholic liver cirrhosis referred to ED by blade filer for subjective fever. Denies cough, shortness of [...] is/are normal. Juan Dang M.D. 07/08/21 0041 ES 9 THROUGH 12 TEACHER documented in this encounter Plan of Treatment Upcoming Encounters Date Type Specialty Care Team Description Telemedicine Transplant 2 Appointment Radiology Matthew Jerome 2 YTyrell M.D. [address] [place] [phone] Appointment Gastroenterology demian Silver, 2 Hepatology Yue Burciaga M.D. [address] [place] [phone] Virtual Visit Transplant Matthew Jerome 2 YTyrell, Lilian [address] [place] [phone] Office Visit Gastroenterology and Matthew Jerome 2 Hepatology Tyrell Rodriguez M.D. [address] [place] [phone] Appointment Radiology LuisMatthew abdul 2 YTyrell M.D. [address] [place] [phone] Hospital Gastroenterology and Matthew Jerome Cirrhos is Alcoholic (HCC) 2 Encounter Hepatology Tyrell Rodriguez M.D. [address] [place] [phone] Anesthesia Event Gastroenterology and Rl, 2 Hepatology Ervin Burgos M.D. [address] [place] [phone] Surgery Gastroenterology and Matthew Jerome ESOPHAG OGASTRODUODENOSCOPY 2 Hepatology Tyrell Rodriguez, Lilian [address] [place] [phone] Scheduled Procedures Name Priority Associated Diagnoses Date/Time ESOPHAGOGASTRODUODENOSCOPY Cirrhosis Alc oholic (HCC) 03/20/2022 8:45 AM GRADES 9 THROUGH 12 TEACHER Hypertension Portal (HCC) documented as of this encounter Procedures Procedure Name Priority Date/Time Associated Comments Diagnosis BACTERIAL CULTURE, STAT 07/06/2021 11:59 Resul ts for AEROBIC + SUSC, AM GRADES 9 THROUGH 12 TEACHER this procedu re URINE are in the results section. URINALYSIS WITH STAT 07/06/2021 11:54 Results for MICROSCOPIC AM GRADES 9 THROUGH 12 TEACHER this procedure are in the results section. BACTERIA / INES STAT 07/06/2021 11:27 Resul ts for CULTURE, BLOOD AM GRADES 9 THROUGH 12 TEACHER this procedur e are in the results section. LACTATE, B STAT 07/06/2021 11:21 Results for AM GRADES 9 THROUGH 12 TEACHER this procedure are in the results section. MORPHOLOGY STAT 07/06/2021 11:21 Results for EVALUATION AM GRADES 9 THROUGH 12 TEACHER this procedure are in the results section. CBC WITH STAT 07/06/2021 11:21 Results for DIFFERENTIAL, B AM GRADES 9 THROUGH 12 TEACHER this procedu re are in the results section. COMPREHENSIVE STAT 07/06/2021 11:21 Results fo r METABOLIC PANEL, S/P AM GRADES 9 THROUGH 12 TEACHER this pr ocedure are in the results section. BACTERIA / INES STAT 07/06/2021 11:15 Resul ts for CULTURE, BLOOD AM GRADES 9 THROUGH 12 TEACHER this procedur e are in the results section. DX CHEST PORTABLE 1 RAD - Semiurgent 07/06/2021 10:58 Results for VIEW (Fast; most ED AM GRADES 9 THROUGH 12 TEACHER this procedur e patients; some are in the inpatients) results section. SARS COV-2,INFLUENZA STAT 07/06/2021 10:51 Res ults for A/B,RSV,PCR, V AM GRADES 9 THROUGH 12 TEACHER this procedur e are in the results section. documented in this encounter Results Bacterial Culture, Aerobic + Susc, Urine (07/06/2021 11:59 AM GRADES 9 THROUGH 12 TEACHER) [facility] Method Time Signature Urine Culture No growth 07/07/2021 MKTO after 1 day 11:49 AM GRADES 9 THROUGH 12 TEACHER of incubation. Specimen Anatomical Collection Method Collection Time Receive d Time (Source) Location / / Volume Laterality Urine (Urine, 07/06/2021 11:59 07/06/2021 Midstream) AM GRADES 9 THROUGH 12 TEACHER 11:59 AM GRADES 9 THROUGH 12 TEACHER Comment: Specimen Source Site: Urine Juan Dang M.D. LAB MICROBIOLOGY - GENERAL O RDERABLES Performing Organization Address City/State/ZIP Code Phon e Number [facility]- [address] [place] [phone] [facility] [address] System in [place] [address] [place] [address] (ABNORMAL) Urinalysis with Microscopic: Urine, Midstream (07/06/2021 11:54 AM GRADES 9 THROUGH 12 TEACHER) Analysis Performed At Patho [facility] Time Signature Source Urine, Urine, 07/06/2021 MKTO Midstream 12:04 PM GRADES 9 THROUGH 12 TEACHER Clarity Clear Clear 07/06/2021 MKTO 12:04 PM GRADES 9 THROUGH 12 TEACHER Color Priscilla 07/06/2021 MKTO 12:04 PM GRADES 9 THROUGH 12 TEACHER Comment: ----REFERENCE VALUE---- Colorless Yellow Priscilla Blood Negative Negative 07/06/2021 12:04 PM GRADES 9 THROUGH 12 TEACHER MKTO Nitrite Negative Negative 07/06/2021 12:04 PM GRADES 9 THROUGH 12 TEACHER MKTO Leukocyte Esterase Trace (A) Negative 07/06/2021 12:[address] MKTO Protein Negative mg/dL 07/06/2021 12:04 PM GRADES 9 THROUGH 12 TEACHER MKTO Comment: ----REFERENCE VALUE---- Negative Trace Glucose Negative Negative mg/dL 07/06/2021 12:04 PM GRADES 9 THROUGH 12 TEACHER M KTO Ketone Negative Negative mg/dL 07/06/2021 12:04 PM GRADES 9 THROUGH 12 TEACHER M KTO Bilirubin Moderate (A) Negative 07/06/2021 12:04 PM GRADES 9 THROUGH 12 TEACHER MKT O pH 7.0 5.0 - 8.0 07/06/2021 12:04 PM GRADES 9 THROUGH 12 TEACHER MKTO Specific [place] 1.020 1.001 - 1.035 07/06/2021 12:04 PM GRADES 9 THROUGH 12 TEACHER MKTO Urobilinogen 1.0 0.2 - 1.0 mg/dL 07/06/2021 12:[address] MKTO White Blood Cells None Seen /hpf 07/06/2021 12:08 PM CS T MKTO Comment: ----REFERENCE VALUE---- Males: 0-3 Females: 0-10 Unknown: 0-10 Red Blood Cells None Seen 0 - 2 /hpf 07/06/2021 12:08 PM GRADES 9 THROUGH 12 TEACHER MKTO Hyaline Casts 1-3 /lpf 07/06/2021 12:08 PM GRADES 9 THROUGH 12 TEACHER MK TO Specimen Anatomical Collection Method Collection Time Receive d Time (Source) Location / / Volume Laterality Urine (Urine, 07/06/2021 11:54 07/06/2021 Midstream) AM GRADES 9 THROUGH 12 TEACHER 11:59 AM GRADES 9 THROUGH 12 TEACHER Juan Dang M.D. LAB URINE ORDERABLES Performing Organization Address [facility] Phon e Number [facility]- [address] [place] [phone] [place] [address] System [address] Bacteria / Ines Culture, Blood #2 (07/06/2021 11:27 AM GRADES 9 THROUGH 12 TEACHER) [facility] Method Time Signature Bacteria/Adriana No growth 07/11/2021 MKTO da Culture, after 5 12:05 PM GRADES 9 THROUGH 12 TEACHER Blood day/s of incubation. Specimen (Source) Anatomical Collection Method Collection Time Re ceived Time Location / / Volume Laterality Blood (Blood, 07/06/2021 11:27 07/06/2021 Peripheral Draw) AM GRADES 9 THROUGH 12 TEACHER 11:30 AM CS T Comment: Specimen Source Site: Blood Juan Dang M.D. LAB MICROBIOLOGY - GENERAL O RDERABLES Performing Organization Address [facility] Phon e Number [facility]- [address] [place] [phone] [address] [address] (ABNORMAL) Morphology Evaluation (07/06/2021 11:21 AM GRADES 9 THROUGH 12 TEACHER) [facility] Method Time Signature RBC Morphology See Specific 07/06/2021 MKTO Findings 12:08 PM GRADES 9 THROUGH 12 TEACHER PLT Estimate Decreased (A) Adequate 07/06/2021 MKTO 12:08 PM GRADES 9 THROUGH 12 TEACHER Acanthocytes Marked (A) 07/06/2021 MKTO 12:08 PM GRADES 9 THROUGH 12 TEACHER Polychromasia Slight (A) Not Seen 07/06/2021 MKTO 12:08 PM GRADES 9 THROUGH 12 TEACHER Specimen Anatomical Collection Method Collection Time Receive d Time (Source) Location / / Volume Laterality Blood 07/06/2021 11:21 07/06/2021 AM GRADES 9 THROUGH 12 TEACHER 11:30 AM GRADES 9 THROUGH 12 TEACHER Juan Dang M.D. LAB BLOOD ADD-ON Performing Organization Address City/[facility] Phon e Number [facility]- [address] [place] [phone] [place] [address] (ABNORMAL) Lactate, B (07/06/2021 11:21 AM GRADES 9 THROUGH 12 TEACHER) P athologist Signature Lactate, B 2.4 (H) 0.5 - 2.2 07/06/2021 MKTO mmol/L 11:33 AM GRADES 9 THROUGH 12 TEACHER Specimen Anatomical Collection Method Collection Time Receive d Time (Source) Location / / Volume Laterality Blood 07/06/2021 11:21 07/06/2021 AM GRADES 9 THROUGH 12 TEACHER 11:30 AM GRADES 9 THROUGH 12 TEACHER Juan Dang M.D. LAB BLOOD NON ADD-ON Performing Organization Address [facility] Code Phon e Number [facility]- [address] [place] [phone] [place] [address] (ABNORMAL) Comprehensive Metabolic Panel (07/06/2021 11:21 AM GRADES 9 THROUGH 12 TEACHER) Analysis Performed At Patho logist Time Signature Potassium, P 4.1 3.6 - 5.2 07/06/2021 MKTO mmol/L 11:55 AM GRADES 9 THROUGH 12 TEACHER Sodium, P 133 (L) 135 - 145 07/06/2021 MKTO mmol/L 11:55 AM GRADES 9 THROUGH 12 TEACHER Chloride, P 100 98 - 107 07/06/2021 MKTO mmol/L 11:55 AM GRADES 9 THROUGH 12 TEACHER Bicarbonate, P 21 (L) 22 - 29 07/06/2021 MKTO mmol/L 11:55 AM GRADES 9 THROUGH 12 TEACHER Anion Gap, P 12 7 - 15 07/06/2021 MKTO 11:55 AM GRADES 9 THROUGH 12 TEACHER BUN (Blood Urea 5 (L) 6 - 21 07/06/2021 MKTO Nitrogen), P mg/dL 11:55 AM GRADES 9 THROUGH 12 TEACHER Creatinine 0.55 (L) 0.59 - 07/06/2021 MKTO 1.04 mg/dL 11:55 AM GRADES 9 THROUGH 12 TEACHER eGFR-Black/Afri >90 >=60 07/06/2021 MKTO can Filipino mL/min/BSA 11:55 AM GRADES 9 THROUGH 12 TEACHER Comment: ----ADDITIONAL INFORMATION---- Estimated GFR calculated using the 2009 CKD_EPI creatinine equation. eGFR Non-Black/ >90 >=60 mL/min/BSA 07/06/2021 11:55 AM GRADES 9 THROUGH 12 TEACHER MKTO Comment: ----ADDITIONAL INFORMATION---- Estimated GFR calculated using the 2009 CKD_EPI creatinine equation. Calcium, Total, P 9.2 8.6 - 10.0 mg/dL 07/06/2021 11:5 5 AM MKTO GRADES 9 THROUGH 12 TEACHER Glucose, P 97 70 - 140 mg/dL 07/06/2021 11:55 AM MKTO GRADES 9 THROUGH 12 TEACHER Protein, Total, P 5.8 (L) 6.3 - 7.9 g/dL 07/06/2021 11:55 AM MKTO GRADES 9 THROUGH 12 TEACHER Albumin, P 3.5 3.5 - 5.0 g/dL 07/06/2021 11:55 AM MKTO GRADES 9 THROUGH 12 TEACHER Aspartate Aminotransferase 71 (H) 8 - 43 U/L 07/06/2021 1 1:55 AM MKTO (AST), P GRADES 9 THROUGH 12 TEACHER Alkaline Phosphatase, P 173 (H) 35 - 104 U/L 07/06/2021 11 :55 AM MKTO GRADES 9 THROUGH 12 TEACHER Alanine Aminotransferase 26 7 - 45 U/L 07/06/2021 11: 55 AM MKTO (ALT), P GRADES 9 THROUGH 12 TEACHER Bilirubin, Total, P 7.0 (H) <=1.2 mg/dL 07/06/2021 11:55 A M MKTO GRADES 9 THROUGH 12 TEACHER Specimen Anatomical Collection Method Collection Time Receive d Time (Source) Location / / Volume Laterality Blood (Blood, 07/06/2021 11:21 07/06/2021 Venous) AM GRADES 9 THROUGH 12 TEACHER 11:30 AM GRADES 9 THROUGH 12 TEACHER Juan Dang M.D. LAB BLOOD ADD-ON Performing Organization Address City/State/ZIP Code Phon e Number [facility]- [address] [place] [phone] [place] [address] [place] [address] (ABNORMAL) CBC with Differential, Blood (07/06/2021 11:21 AM GRADES 9 THROUGH 12 TEACHER) [facility] Method Time Signature Hemoglobin 7.3 (L) 11.6 - 07/06/2021 MKTO 15.0 g/dL 12:08 PM GRADES 9 THROUGH 12 TEACHER Hematocrit 22.1 (L) 35.5 - 07/06/2021 MKTO 44.9 % 12:08 PM GRADES 9 THROUGH 12 TEACHER Erythrocytes 2.02 (L) 3.92 - 07/06/2021 MKTO 5.13 12:08 PM GRADES 9 THROUGH 12 TEACHER x10(12)/L MCV 109.4 (H) 78.2 - 07/06/2021 MKTO 97.9 fL 12:08 PM GRADES 9 THROUGH 12 TEACHER RBC Distrib Width 13.6 12.2 - 07/06/2021 MKTO 16.1 % 12:08 PM GRADES 9 THROUGH 12 TEACHER Platelet Count 66 (L) 157 - 371 07/06/2021 MKTO x10(9)/L 12:08 PM GRADES 9 THROUGH 12 TEACHER Leukocytes 7.7 3.4 - 9.6 07/06/2021 MKTO x10(9)/L 12:08 PM GRADES 9 THROUGH 12 TEACHER Neutrophils 5.72 1.56 - 07/06/2021 MKTO 6.45 12:08 PM GRADES 9 THROUGH 12 TEACHER x10(9)/L Lymphocytes 1.14 0.95 - 07/06/2021 MKTO 3.07 12:08 PM GRADES 9 THROUGH 12 TEACHER x10(9)/L Monocytes 0.73 0.26 - 07/06/2021 MKTO 0.81 12:08 PM GRADES 9 THROUGH 12 TEACHER x10(9)/L Eosinophils 0.08 0.03 - 07/06/2021 MKTO 0.48 12:08 PM GRADES 9 THROUGH 12 TEACHER x10(9)/L Basophils 0.05 0.01 - 07/06/2021 MKTO 0.08 12:08 PM GRADES 9 THROUGH 12 TEACHER x10(9)/L Specimen Anatomical Collection Method Collection Time Receive d Time (Source) Location / / Volume Laterality Blood (Blood, 07/06/2021 11:21 07/06/2021 Venous) AM GRADES 9 THROUGH 12 TEACHER 11:30 AM GRADES 9 THROUGH 12 TEACHER Juan Dang M.D. LAB BLOOD ADD-ON Performing Organization Address City/State/ZIP Code Phon e Number [facility]- [address] [place] [phone] [facility] [place] [address] Bacteria / Ines Culture, Blood #1 (07/06/2021 11:15 AM GRADES 9 THROUGH 12 TEACHER) [facility] gist Method Time Signature Bacteria/Adriana No growth 07/11/2021 MKTO da Culture, after 5 12:05 PM GRADES 9 THROUGH 12 TEACHER Blood day/s of incubation. Specimen (Source) Anatomical Collection Method Collection Time Re ceived Time Location / / Volume Laterality Blood (Blood, 07/06/2021 11:15 07/06/2021 Peripheral Draw) AM GRADES 9 THROUGH 12 TEACHER 11:30 AM CS T Comment: Specimen Source Site: Blood Juan Dang M.D. LAB MICROBIOLOGY - GENERAL O RDERABLES Performing Organization Address City/State/ZIP Code Phon e Number [facility]- [facility] [place] [address] [place] [address] System in [place] [address] [facility] DX Chest Portable 1 View (07/06/2021 10:58 AM GRADES 9 THROUGH 12 TEACHER) Anatomical Region Laterality Modality Chest, Thoracic RST LOS, Thoracic ARZ LOS, Thoracic N/A Digital Radiography FLA LOS Specimen (Source) Anatomical Collection Method Collection Time Re ceived Time Location / / Volume Laterality 07/06/2021 11:00 AM GRADES 9 THROUGH 12 TEACHER Impressions 07/06/2021 11:07 AM GRADES 9 THROUGH 12 TEACHER No acute radiographic abnormalities are demonstrated. Narrative 07/06/2021 11:07 AM GRADES 9 THROUGH 12 TEACHER EXAM: DX CHEST PORTABLE 1 VIEW COMPARISON: [...] A/B, RSV, PCR Symptomatic (07/06/2021 10:51 AM GRADES 9 THROUGH 12 TEACHER) [facility] Method Time Signature Influenza A, Undetected Undetected 07/06/2021 MKTO PCR 11:34 AM GRADES 9 THROUGH 12 TEACHER Comment: Influenza A viral RNA absent. Influenza B, PCR Undetected Undetected 07/06/2021 11:[address] MKTO Comment: Influenza B viral RNA absent. Respiratory Syncytial Virus, Undetected Undetected 03/06/2 022 11:34 AM GRADES 9 THROUGH 12 TEACHER MKTO PCR Comment: RSV RNA absent. PFCZ-Bpyjcipsgzx-5, PCR Undetected Undetected 07/06/2021 11: 34 AM GRADES 9 THROUGH 12 TEACHER MKTO Comment: SARS-CoV-2 RNA absent. ?? ----ADDITIONAL INFORMATION---- This RT-PCR test using the Xpert Xpress SARS-CoV-2/Flu/RSV assay ([employer] performed on the [employer] rt DX systems has received Emergency Use Authorization (EU A) by the U.S. Food and Drug Administration. Performanc e characteristics were verified by [facility] in[facility] in a manner consistent with CLIA requirements . Fact sheets for this Emergency Use Autho rization (EUA) assay can be found at the following link s: For Healthcare Providers: https://www.fda.gov/media/235383/downloa d For Patients: https://www.fda.gov/media/404256/downloa d Specimen Source Swab, Nasopharynx 07/06/2021 10:55 AM GRADES 9 THROUGH 12 TEACHER MKTO Specimen Anatomical Collection Method Collection Time Receive d Time (Source) Location / / Volume Laterality Varies 07/06/2021 10:51 07/06/2021 (Nasopharynx) AM GRADES 9 THROUGH 12 TEACHER 10:55 AM GRADES 9 THROUGH 12 TEACHER Juan Dang M.D. LAB MICROBIOLOGY - GENERAL O RDERABLES Performing Organization Address City/State/ZIP Code Phon e Number [facility]- [address] [place] [phone] [place] [address] [place] [address] System in [address] documented in this encounter Visit Diagnoses Diagnosis Fever Of Unknown Origin - Primary Cirrhosis Alcoholic (HCC) Cirrhosis Alcoholic (HCC) Hypertension Portal (HCC) documented in this encounter Administered Medications Inactive Administered Medications - up to 3 most recent administrations Medication Order MAR Action Action Date Dose Rate Site fentaNYL injection 50 mcg Given 07/06/2021 11:32 AM GRADES 9 THROUGH 12 TEACHER 50 mcg (SUBLIMAZE) 50 mcg, intravenous, Once, [...] intravenous, As needed, line care, Starting on Denio 07/06/21 at 1044, Prior to and following infusion and between multi ple consecutive infusions: sodium chloride 0.9 % injection sodium chloride 0.9 % injection 3 mL 3 mL, intravenous, Every 12 hours scheduled, First dos e on Denio 07/06/21 at 2100, Peripheral Intravenous Catheter and Rapi d Infusion Catheter, when no infusion to maintain patency documented in this encounter Active and Recently Administered Medications Times are shown in GRADES 9 THROUGH 12 TEACHER. Scheduled Medication Order 07/04/2021 07/05/2021 07/06/2021 fentaNYL injection 50 mcg (SUBLIMAZE) (COMPLETED) 1132 (Given - Provider: Roseline Solorzano R.N.) 50 mcg, intravenous, Once, On Denio 07/06/21 at 1110, For 1 dose sodium chloride 0.9 % injection 3 mL 3 mL, intravenous, Every 12 hours schedu led, First dose on Denio 07/06/21 at 2100, Peripheral Intravenous Catheter and Rapid Infusion Catheter, when no infusion to maintain patency PRN Medication Order 07/04/2021 07/05/2021 07/06/2021 sodium chloride 0.9 % injection 10 mL 10 mL, intravenous, As needed, line care , Starting on Denio 07/06/21 at 1044, Peripheral Intravenous Catheter and Rapid Infusion Catheter, prior to blood sampling, post blood transfusion or post blood sampling sodium chloride 0.9 % injection 3 mL 3 mL, intravenous, As needed, line care, Starting on Denio 07/06/21 at 1044, Prior to and following infusion and between multiple consecutive infusions: sodium chloride 0.9 % injection documented in this encounter Additional Health Concerns Infection Onset Date Last Indicated Resolved Time COVID19 Pending 07/06/2021 07/06/2021 07/06/2021 11:34 AM GRADES 9 THROUGH 12 TEACHER documented as of this encounter Care Teams Arborist Representative Relationship Specialty Start Date End Date Elsewhere, Pcp PCP - General Family Medicine 03/10/20 11/30/21 Ervin Schroeder MD Referring Provider Family Medicine 03/24/[address] [place] [id number] documented as of this encounter
--- OUTSIDE RECORDS SUMMARY | 2022-02-16 12:30 | XMS_ITS | Encounter Summary ---
:1990 Author Organization [facility] Address [address] [place] [address] Care Team Providers Name Role Phone Elsewhere, Pcp Primary Care Provider Unavailable Reason for Referral Appointment Request (Routine) - Closed Specialty Diagnoses / Procedures Referred By Contact Refer red To Contact Diagnoses Cirrhosis Alcoholic (HCC) Ascites Anemia Macrocytic Thrombocytopenia (HCC) Deficiency Coagulation Acquired (HCC) Kerry Naranjo APRN, Procedures Prothrombin Time (PT) C.N.P., M.S.N. [address] [place] [address] Referral ID Status Reason Start Date Expiration Date Visits Requ ested Visits Authorized [id number] Closed 07/07/2021 07/07/2022 1 RE MODEL Encounter Details Date Type Department Care Team Description 07/04/2021 Clinical Communication Department of Felicita Spicer Gastroenterology in [place], L.P.N. [place], [place] [phone] [address] [place] [address] Social History Tobacco Use Types Packs/Day [...] you attend mosque or Patient refused 2021 mormonism services? Do [...] Felicita Spicer L.P.N. - 2021 11:19 AM FIGURE MODEL As stated below by Kerry Naranjo, the following is the plan for this patient and upcoming EGD. I have ordered Vitamin K 5 mg X 7 days, to take orally. Then follow up by repeat PT/INR on the 8th day. Please call pt and ask to get the lab at [facility] in [place]; this allows access to results. Past attempts [...] it was okay to leave detailed message. Scleroscope Tester called to again discuss plan with patient and left a detailed message as outlined above. Informed her to expect a call from scheduling to set up the lab appointment. RE MODEL Telephone Encounter - Felicita Spicer L.P.N. - [...] had no further questions at this time. RE MODEL Telephone Encounter - Kerry Naranjo APRN, C.N.PSuma, M.S.N. - 07/08/2021 12:53 PM CST Her upper GI endoscopy is screening for the presence of varices. This is non urgent at this time as to the best of my knowledge she is not currently having any GI bleeding related to the presence of varices. August 12 would be okay Kerry Naranjo APRN, C.N.P., M.S.N. RE MODEL Telephone Encounter - Mihaela Dudley - 07/08/2021 [...] answer all her questions before the procedure. RE MODEL Telephone Encounter - Felicita Spicer L.P.N. - 07/08/2021 10:16 AM FIGURE MODEL Patient returned call and it was discussed [...] report that she is currently at [facility] and inquired if [facility] had beds available. Informed her that I am unaware of hospital bed availability. She had no further questions at this time. RE MODEL Telephone Encounter - Felicita Spicer L.P.N. - [...] patient can pickup closer to procedure date. RE MODEL Telephone Encounter - Kerry Naranjo APRN C.N.P., M.S.N. - 07/07/2021 1:43 PM CST I have ordered Vitamin K 5 mg X 7 days, to take orally. Then follow up by repeat PT/INR on the 8th day. Please call pt and ask to get the lab at [facility] in [place]; this allows access to results. Past attempts to get lab work from outside PCP has failed. She should start to take the Vitamin K 10 days prior to the r/s EGD. I have also ordered the EGD/MAC, however the last EGD should of been put back in the que and not cancelled. Thank you, Kerry RE MODEL Telephone Encounter - Felicita Spicer L.P.N. - 07/04/2021 9:00 AM CST Scleroscope Tester received a call this morning from endoscopy [...] the patient she does have several questions, junior technical writer informed her it may not be a bad idea to keep theappointment even if she has not had the EGD as this will allow her to ask her questions and get some answers. Scleroscope Tester informed the patient that I would follow up regarding the plan moving forward as I see recommendations documented in the chart, however I do not see any specific orders. Informed her that Kerry is out of office today and should be back on Wednesday. RE MODEL documented in this encounter Plan of Treatment Upcoming Encounters Date Type Specialty Care Team Description Telemedicine Transplant 2 Appointment Radiology Mousa, Matthew 2 YTyrell M.D. [address] [place] [phone] Appointment Gastroenterology demian Silver 2 Hepatology Yue Burciaga M.D. [address] [place] [address] Virtual Visit Transplant Matthew Jerome 2 YTyrell M.D. [address] [place] [phone] Office Visit Gastroenterology and [place] Jeromear 2 Hepatology Tyrell Rodriguez M.D. [address] [place] [phone] Appointment Radiology LuisMatthew abdul 2 YTyrell M.D. [address] [place] [phone] Hospital Gastroenterology and Njchantell Matthew Cirrhos is Alcoholic (HCC) 2 Encounter Hepatology Tyrell Rodriguez M.D. [address] [place] [phone] Anesthesia Event Gastroenterology and Rl, 2 Hepatology Ervin Burgos M.D. [address] [place] [phone] Surgery Gastroenterology and Matthew Jerome ESOPHAG OGASTRODUODENOSCOPY 2 Hepatology Tyrell Rodriguez, Lilian [address] [place] [phone] Scheduled Procedures Name Priority Associated Diagnoses Date/Time ESOPHAGOGASTRODUODENOSCOPY Cirrhosis Alc oholic (HCC) 03/20/2022 8:45 AM FIGURE MODEL Hypertension Portal (HCC) documented as of this encounter Results (ABNORMAL) Prothrombin Time (PT) (08/28/2021 5:01 PM CDT) [facility] gist Method Time Signature Prothrombin [...] Phon e Number [facility]- [address], [place] [address] [place] [address] System in [place] [address] [facility] documented in this encounter Visit Diagnoses Diagnosis Cirrhosis Alcoholic (HCC) - Primary Ascites Anemia Macrocytic Thrombocytopenia (HCC) Deficiency Coagulation Acquired (HCC) Cirrhosis Alcoholic (HCC) Cirrhosis Alcoholic (HCC) Hypertension Portal (HCC) documented in this encounter Additional Health Concerns Infection Onset Date Last Indicated Resolved Time COVID19 Pending 07/06/2021 07/06/2021 07/06/2021 11:34 AM FIGURE MODEL COVID19 Pending 07/25/2021 07/25/2021 07/25/2021 10:07 PM CDT documented as of this encounter Care Teams Seasonal Warehouse Associate Relationship Specialty Start Date End Date Elsewhere, Pcp PCP - General Family Medicine 03/10/20 11/30/21 Ervin Schroeder MD Referring Provider Family Medicine 11/22/[address] [place] [address] documented as of this encounter
--- OUTSIDE RECORDS SUMMARY | 2022-02-16 12:31 | XMS_ITS | Encounter Summary ---
:1990 Author Organization [facility] Address [address] [place] [address] Care Team Providers Name Role Phone Elsewhere, Pcp Primary Care Provider Unavailable Encounter Details Date Type Department Care Team Description 04/18/2021 Clinical Communication Department of Kerry Naranjo Gastroenterology in [place], [place] C.N.P., M.S.N. [address] [facility] [address] [place] [address] [place], [place] [phone] Social History Tobacco Use Types Packs/Day [...] you attend faith or Patient refused 2021 druze services? Do [...] Date Recorded Female 04/12/2021 7:39 PM EDGE DYER documented as of this encounter Miscellaneous Notes [...] to ask her primary care provider in [place] if he is able to do the laboratory and ultrasound as described below to do at the end of July the beginning of August so the patient does not have to travel so much. She should not be driving, and she should get her primary care provider to send her to [facility] for an assessment for safe driving. Thank [...] She also was instructed to contact her [facility] to sign BIANKA as unable to see her laboratory records in Care everywhere. -EGD/MAC. MAC sedation as screening for varices with possible banding -GI follow-up one week after EGD DYER documented in this encounter Plan of Treatment Upcoming Encounters Date Type Specialty Care Team Description Telemedicine Transplant 2 Appointment Radiology Matthew Jerome 2 YTyrell M.D. [address] [place] [phone] Appointment Gastroenterology and Adrianne, 2 Hepatology Yue Burciaga M.D. [address] [place] [address] Virtual Visit Transplant Matthew Jerome 2 YTyrell M.D. [address] [place] [phone] Office Visit Gastroenterology and Matthew Jerome 2 Hepatology Vik RodriguezBGraeme, Lilian [address] [place] [phone] Appointment Radiology Matthew Jerome 2 YTyrell M.D. [address] [place] [phone] Hospital Gastroenterology and Matthew Jerome Cirrhos is Alcoholic (HCC) 2 Encounter Hepatology Tyrell Rodriguez, Lilian [address] [place] [phone] Anesthesia Event Gastroenterology and Rl, 2 Hepatology Ervin Burgos M.D. [address] [place] [phone] Surgery Gastroenterology and Queenie Matthew ESOPHAG OGASTRODUODENOSCOPY 2 Hepatology Joshua RodriguezBSumaBGraeme, Lilian [address] [place] [phone] Scheduled Procedures Name Priority Associated Diagnoses Date/Time ESOPHAGOGASTRODUODENOSCOPY Cirrhosis Alc oholic (HCC) 03/20/2022 8:45 AM EDGE DYER Hypertension Portal (HCC) documented as of this encounter Visit Diagnoses Not on filedocumented in this encounter Care Teams Laboratory Monitor Relationship Specialty Start Date End Date Elsewhere, Pcp PCP - General Family Medicine 03/10/20 11/30/21 Ervin Schroeder MD Referring Provider Family Medicine 03/24/[address] [place] [address] documented as of this encounter
--- OUTSIDE RECORDS SUMMARY | 2022-02-16 12:31 | XMS_ITS | Encounter Summary ---
:1990 Author Organization [facility] Address [address] [place] [address] Care Team Providers Name Role Phone Elsewhere, Pcp Primary Care Provider Unavailable Reason for Referral Outpatient (Routine) - Closed Specialty Diagnoses / Referred By Contact Referred To Procedures Contact [facility] Katrin VIGIL.N.P., M.S.N. [facility] [place] [address] Referral ID Status Reason Start Date Expiration Date Visits Requ ested Visits Authorized [id number] Closed 04/17/2021 04/17/2022 1 1 ANICAL DESIGN ENGINEER FACILITIES Reason for Visit Outpatient (Routine) - Closed Specialty Diagnoses / Referred By Contact Referred To Procedures Contact [facility] Hep[facility] Katrin VIGIL.N.Shanita., M.S.N. [address] [place] [address] Referral ID Status Reason Start Date Expiration Date Visits Requ ested Visits Authorized [id number] Closed 03/15/2021 03/15/2022 1 1 Encounter Details Date Type Department Care Team Description 04/17/2021 Office Visit Department of Jose A Kerry Cirrhosis Alc oholic (HCC) (Primary Dx); Gastroenterology in S, DIRECTOR OF PREMIUM SEAT SALES, Thromboc ytopenia (HCC); [place], [place] C.N.P., Splenomegaly Acquired; [address] [facility] M.S.N. Deficiency Vitamin D; [place] [address] 10[address] [facility] Deficiency Vitamin A; [phone] [place], [place] Hypertension Po rtal (HCC); [address] Ascites; [phone] Jaundice; (Work) Malnutrition Protein-Calorie Unspecified (HCC) Social [...] you attend mandaen or Patient refused 2021 scientologist services? 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 DESIGN ENGINEER FACILITIES documented as of this encounter Last Filed Vital Signs Vital Sign Reading Time Taken Comments Blood Pressure 100/60 04/17/2021 3:20 PM MECHANICAL DESIGN ENGINEER FACILITIES Pulse 80 04/17/2021 3:20 PM MECHANICAL DESIGN ENGINEER FACILITIES Temperature - - Respiratory Rate - - Oxygen Saturation - - Inhaled Oxygen Concentration - - Weight 50.3 kg (110 lb 14.3 oz) 04/17/2021 3:20 PM MECHANICAL DESIGN ENGINEER FACILITIES Height 157.5 cm (5' 2.01) 04/17/2021 3:20 PM MECHANICAL DESIGN ENGINEER FACILITIES Body Mass Index 20.28 04/17/2021 3:20 PM MECHANICAL DESIGN ENGINEER FACILITIES documented in this encounter Patient Instructions Patient [...] red or purple colored beverages, Jell-O, popsicles *electric train 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 - 04/17/2021 3:30 PM CST Kerry Naranjo APRN, C.N.P., M.S.N. [address] [place] [address] Patient Name: Catia Carias Date of : [...] care provider Dr. Ervin Schroeder, from [facility] in [facility]; phone [phone], . She stateshe prescribed vitamin-D for GERD [...] She also was instructed to contact her [facility] to sign BIANKA as unable to [...] Naranjo APRN, Katrin.NLala., M.S.N. Gastroenterology and Hepatology [facility] ANICAL DESIGN ENGINEER FACILITIES documented in this encounter Plan of Treatment Upcoming Encounters Date Type Specialty Care Team Description Telemedicine Transplant 2 Appointment Radiology Matthew Jerome 2 YTyrell M.D. [address] [place] [phone] Appointment Gastroenterology and Adrianne, 2 Hepatology Yue Burciaga M.D. [address] [place] [phone] Virtual Visit Transplant LuisNew abdular 2 Tyrell Rodriguez M.D. [address] [place] [phone] Office Visit Gastroenterology and Matthew Jerome 2 Hepatology Tyrell Rodriguez M.D. [address] [place] [phone] Appointment Radiology Queenie Matthew 2 Tyrell Rodriguez M.D. [address] [place] [phone] Hospital Gastroenterology and Matthew Jerome Cirrhos is Alcoholic (HCC) 2 Encounter Hepatology Joshua RodriguezBLilian Staples [address] [place] [phone] Anesthesia Event Gastroenterology and Rl, 2 Hepatology Ervin Burgos M.D. [address] [place] [phone] Surgery Gastroenterology and Matthew Jerome ESOPHAG OGASTRODUODENOSCOPY 2 Hepatology Joshua RodriguezBSumaBLilian Bedolla [address] [place] [phone] Scheduled Procedures Name Priority Associated Diagnoses Date/Time ESOPHAGOGASTRODUODENOSCOPY Cirrhosis Alc oholic (HCC) 03/20/2022 8:45 AM MECHANICAL DESIGN ENGINEER FACILITIES Hypertension Portal (HCC) Scheduled Referrals Name Type [...] (HCC) documented in this encounter Care Teams Lens Dotter Relationship Specialty Start Date End Date Elsewhere, Pcp PCP - General Family Medicine 03/10/20 11/30/21 Ervin Schroeder MD Referring Provider Family Medicine 03/24/[address] [place] [address] documented as of this encounter
--- OUTSIDE RECORDS SUMMARY | 2022-02-16 12:31 | XMS_ITS | Encounter Summary ---
:1990 Author Organization [facility] Address [address] [place] [address] Care Team Providers Name Role Phone Elsewhere, Pcp Primary Care Provider Unavailable Encounter Details Date Type Department Care Team Description 06/30/2021 Hospital Encounter Department of Rut Molina Alcoholic Laboratory [facility] ([facility]) Medicine, Specialty P.A.-C., M.S . [facility], in [address] [address] [place], [place] [phone] (Work) [phone] Social History Tobacco Use Types Packs/Day Years [...] at Date Recorded Female 04/12/2021 7:39 PM PACKAGE DELIVERY ROOM SERVICE RUNNER documented as of this encounter Medications at [...] performingher upper GI endoscopy has been notified. AGE DELIVERY ROOM SERVICE RUNNER documented in this encounter Plan of Treatment Upcoming Encounters Date Type Specialty Care Team Description Telemedicine Transplant 2 Appointment Radiology Matthew Jerome 2 Y M.B.B.SSuma, Lilian [address] [place] [phone] Appointment Gastroenterology and Adrianne, 2 Hepatology Yue Burciaga M.D. [address] [place] [phone] Virtual Visit Transplant Luischantell Matthew 2 Jennifer M.B.B.SSuma, Lilian [address] [place] [phone] Office Visit Gastroenterology and Queenie Matthew 2 Hepatology Elizabeth Rodriguez.B.B.SSuma, Lilian [address] [place] [phone] Appointment Radiology Matthew Jerome 2 Y M.B.B.SLilian Moise [address] [place] [address] [phone] Hospital Gastroenterology and QueenieNewar Cirrhos is Alcoholic (HCC) 2 Encounter Hepatology Joshua RodriguezB.B.SLilian Moise [address] [place] [phone] Anesthesia Event Gastroenterology and Rl, 2 Hepatology Ervin Burgos M.D. [address] [place] [phone] Surgery Gastroenterology and Mousa, Matthew ESOPHAG OGASTRODUODENOSCOPY 2 Hepatology Tyrell Rodriguez M.D. [address] [place] [phone] Scheduled Procedures Name Priority Associated Diagnoses Date/Time ESOPHAGOGASTRODUODENOSCOPY Cirrhosis Alc oholic (HCC) 03/20/2022 8:45 AM PACKAGE DELIVERY ROOM SERVICE RUNNER Hypertension Portal (HCC) documented as of this encounter Procedures Procedure Name Priority Date/Time Associated Comments Diagnosis PROTHROMBIN TIME Routine 06/30/2021 2:27 PM Cirrhosis Alcoholi c Results for this (PT), P PACKAGE DELIVERY ROOM SERVICE RUNNER (HCC) procedure are i n the results section. documented in this encounter Results (ABNORMAL) Prothrombin Time (PT) (06/30/2021 2:27 PM PACKAGE DELIVERY ROOM SERVICE RUNNER) [facility] gist Method Time Signature Prothrombin 26.7 (H) 9.4 - 12.5 06/30/2021 MKTO Time, P sec 3:02 PM PACKAGE DELIVERY ROOM SERVICE RUNNER INR 2.3 0.9 - 1.1 06/30/2021 MKTO 3:02 PM PACKAGE DELIVERY ROOM SERVICE RUNNER Comment: ----ADDITIONAL INFORMATION---- Standard intensity warfarin therapeutic range: 2.0 to 3.0 ?? High intensity warfarin therapeutic rang e: 2.5 to 3.5 Specimen Anatomical Collection Method Collection Time Receive d Time (Source) Location / / Volume Laterality Blood (Blood, 06/30/2021 2:27 PM 06/30/19 2:46 Venous) PACKAGE DELIVERY ROOM SERVICE RUNNER PM PACKAGE DELIVERY ROOM SERVICE RUNNER Magaly Molina P.A.-C., M.S. LAB BLOOD ADD-ON Performing Organization Address City/State/ZIP Code Phon e Number [facility]- [address] [place] [phone] [facility] [address] [address] documented in this encounter Visit Diagnoses Diagnosis Cirrhosis Alcoholic (HCC) Cirrhosis Alcoholic (HCC) Cirrhosis Alcoholic (HCC) Hypertension Portal (HCC) documented in this encounter Additional Health Concerns Infection Onset Date Last Indicated Resolved Time COVID19 Pending 06/30/2021 06/30/2021 06/30/2021 10:43 PM PACKAGE DELIVERY ROOM SERVICE RUNNER documented as of this encounter Care Teams Back Padder Relationship Specialty Start Date End Date Elsewhere, Pcp PCP - General Family Medicine 03/10/20 11/30/21 Ervin Schroeder MD Referring Provider Family Medicine 03/24/[address] [place] [address] documented as of this encounter
--- OUTSIDE RECORDS SUMMARY | 2022-02-16 12:31 | XMS_ITS | Encounter Summary ---
:1990 Author Organization [facility] Address [address] [place] [address] Care Team Providers Name Role Phone Elsewhere, Pcp Primary Care Provider Unavailable Encounter Details Date Type Department Care Team Description 06/26/2021 Orders Only Department of [place], Cirrhosis Alco holic Gastroenterology in [facility], ([facility]) (P rimary Dx) [place], [place] P.A.-C., M.S. 1025 [facility] [address] [place] [address] [place], [place] [phone] Social History Tobacco Use Types Packs/Day [...] you attend [employer] or Patient refused 2021 caodaism services? 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 [address] [place] [phone] Virtual Visit Transplant LuischantellMatthew 2 YTyrell M.D. [address] [place] [phone] Office Visit Gastroenterology and LuisNew abdular 2 Hepatology Tyrell Rodriguez M.D. [address] [place] [phone] Appointment Radiology [facility] 2 Tyrell Rodriguez M.D. [address] [place] [phone] Hospital Gastroenterology and [facility] Cirrhos is Alcoholic (HCC) 2 Encounter Hepatology Tyrell Rodriguez M.D. [address] [place] [phone] Anesthesia Event Gastroenterology and Rl, 2 Hepatology Ervin Burgos M.D. [address] [place] [phone] Surgery Gastroenterology and [facility] ESOPHAG OGASTRODUODENOSCOPY 2 Hepatology Tyrell Rodriguez M.D. [address] [place] [phone] Scheduled Procedures Name Priority Associated Diagnoses Date/Time ESOPHAGOGASTRODUODENOSCOPY Cirrhosis Alc oholic (HCC) 03/20/2022 8:45 AM CORRECTIONS LIEUTENANT Hypertension Portal (HCC) documented as of this encounter Results (ABNORMAL) Prothrombin Time (PT) (06/30/2021 2:27 PM CORRECTIONS LIEUTENANT) [facility] Method Time Signature Prothrombin 26.7 (H) 9.4 - 12.5 06/30/2021 MKTO Time, P sec 3:02 PM CORRECTIONS LIEUTENANT INR 2.3 0.9 - 1.1 06/30/2021 MKTO 3:02 PM CORRECTIONS LIEUTENANT Comment: ----ADDITIONAL INFORMATION---- Standard intensity warfarin therapeutic range: 2.0 to 3.0 ?? High intensity warfarin therapeutic rang e: 2.5 to 3.5 Specimen Anatomical Collection Method Collection Time Receive d Time (Source) Location / / Volume Laterality Blood (Blood, 06/30/2021 2:27 PM 06/30/19 2:46 Venous) CORRECTIONS LIEUTENANT PM CORRECTIONS LIEUTENANT Magaly Molina P.A.-C. M.S. LAB BLOOD ADD-ON Performing Organization Address City/State/ZIP Code Phon e Number [facility]- [address] [place] [id number] [place] [address] [place] [address] System in [place] [address] [facility] documented in this encounter Visit Diagnoses Diagnosis Cirrhosis Alcoholic (HCC) - Primary Cirrhosis Alcoholic (HCC) Cirrhosis Alcoholic (HCC) Hypertension Portal (HCC) documented in this encounter Care Teams Engineering Technical Writer Relationship Specialty Start Date End Date Elsewhere, Pcp PCP - General Family Medicine 03/10/20 11/30/21 Ervin Schroeder MD Referring Provider Family Medicine 03/24/[address] [place] [address] documented as of this encounter
--- OUTSIDE RECORDS SUMMARY | 2022-02-16 12:31 | XMS_ITS | Encounter Summary ---
:1990 Author Organization [facility] Address [address] [place] [address] Care Team Providers Name Role Phone Elsewhere, Pcp Primary Care Provider Unavailable Encounter Details Date Type Department Care Team Description 06/24/2021 Lab Department of [facility] Sera Morgan, En counter For Medicine in [place], P.A.-C. Preprocedural Laboratory [address] Examination (COVID-19) 1025 [place] [address] [place] [address] [phone] Social History Tobacco Use Types Packs/Day Years [...] you attend anabaptism or Patient refused 2021 shinto services? 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 [address] [place] [phone] Virtual Visit Transplant LuisNew abdular 2 Tyrell Rodriguez M.D. [address] [place] [phone] Office Visit Gastroenterology and LuisNew abdular 2 Hepatology Tyrell Rodriguez M.D. [address] [place] [phone] Appointment Radiology [facility] 2 Tyrell Rodriguez M.D. [address] [place] [phone] Hospital Gastroenterology and [facility] Cirrhos is Alcoholic (HCC) 2 Encounter Hepatology Tyrell Rodriguez M.D. [address] [place] [phone] Anesthesia Event Gastroenterology and Rl, 2 Hepatology Ervin Burgos M.D. [address] [place] [phone] Surgery Gastroenterology and [facility] ESOPHAG OGASTRODUODENOSCOPY 2 Hepatology Tyrell Rodriguez M.D. [address] [place] [phone] Scheduled Procedures Name Priority Associated Diagnoses Date/Time ESOPHAGOGASTRODUODENOSCOPY Cirrhosis Alc oholic (HCC) 03/20/2022 8:45 AM PERSONNEL PLACEMENT SPECIALIST Hypertension Portal (HCC) documented as of this encounter Procedures Procedure Name Priority Date/Time Associated Diagnosis Comme nts SARS CORONAVIRUS-2 Routine 06/24/2021 3:50 PM Encounter For Re sults for this RNA, V PERSONNEL PLACEMENT SPECIALIST Preprocedural procedure are in Laboratory Examination the r esults (COVID-19) section. documented in this encounter Results SARS Coronavirus-2 RNA, V Asymptomatic (06/24/2021 3:50 PM PERSONNEL PLACEMENT SPECIALIST) [facility] Method Time Signature SARS-CoV-2 Swab, 06/24/2021 MKTO Specimen Nasopharynx 10:05 PM Source PERSONNEL PLACEMENT SPECIALIST SARS CoV-2 Undetected Undetected 06/24/2021 MKTO RNA, TMA 10:05 PM PERSONNEL PLACEMENT SPECIALIST Comment: SARS-CoV-2 RNA absent. This result does not rule out COVID-19 in the patient, as the sensitivity of the test depends o n the timing of the specimen collection and the quality of the specim en. Result should be correlated with patient's history and clinical presentat ion. ----ADDITIONAL INFORMATION---- This molecular amplification test was pe rformed using the Aptima SARS-CoV-2 assay ([employer] on the [employer] tem under emergency use authorization (EUA) by the U.S. Food and Drug Administ ration. Fact sheets for this EUA assay can be fo und at the following links: For Healthcare Providers: https://www.Carnad a.gov/media/268569/download For Patients: https://www.fda.gov/media/ 710934/download Specimen Anatomical Collection Method Collection Time Receive d Time (Source) Location / / Volume Laterality Varies 06/24/2021 3:50 PM 5:05 (Nasopharynx) PERSONNEL PLACEMENT SPECIALIST PM PERSONNEL PLACEMENT SPECIALIST Sera Morgan P.A.-C. LAB MICROBIOLOGY - GENERAL O JOSE Performing Organization Address City/State/ZIP Code Phon e Number [facility]- [address] [place] [phone] [place] [address] [place] [address] System in [address] documented in this encounter Visit Diagnoses Diagnosis Encounter For Preprocedural Laboratory E xamination (COVID-19) Cirrhosis Alcoholic (HCC) Cirrhosis Alcoholic (HCC) Hypertension Portal (HCC) documented in this encounter Care Teams Agricultural Extension Agent Relationship Specialty Start Date End Date Elsewhere, Pcp PCP - General Family Medicine 03/10/20 11/30/21 Ervin Schroeder MD Referring Provider Family Medicine 03/24/21[address] [facility] [place] [address] documented as of this encounter
--- OUTSIDE RECORDS SUMMARY | 2022-02-16 12:31 | XMS_ITS | Encounter Summary ---
:1990 Author Organization [facility] Address [address] [place] [address] Care Team Providers Name Role Phone Elsewhere, Pcp Primary Care Provider Unavailable Encounter Details Date Type Department Care Team Description 04/29/2021 Clinical Communication Department of Kerry Naranjo Gastroenterology in [place], [place] C.N.P., M.S.N. 1025 [facility] 1025 [place] [address] [place], [place] [phone] Social History Tobacco Use Types Packs/Day [...] you attend lutheran or Patient refused 2021 orthodoxy services? 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 - 04/29/2021 4:07 PM CST Notified patient of recommendations. Patient was very appreciative of the information. Telephone Encounter - Kerry Naranjo APRN, C.NDayne, M.S.N. - 04/29/2021 4:03 PM CST Reviewed gabapentin in relation to hepatic/liver disease there are no adjustments needed (per [employer]). It is ok for her to take. Kerry Naranjo APRN, C.N.PSuma, M.S.N. Telephone Encounter - Ines Warren R.N. - [...] to taking gabapentin from a GI standpoint? Telephone Encounter - Elizabet Corrales - 04/29/2021 2:41 PM CST Patient is requesting a call back in regards to her Gabapentin from Kerry Naranjo. Ok to leave a message. documented in this encounter Plan of Treatment Upcoming Encounters Date Type Specialty Care Team Description Telemedicine Transplant 2 Appointment Radiology Matthew Jerome 2 Tyrell Rodriguez, Lilian [address] [place] [phone] Appointment Gastroenterology and Adrianne, 2 Hepatology Yue Burciaga M.D. [address] [place] [phone] Virtual Visit Transplant Matthew Jerome 2 Vik RodriguezBLilian Bedolla [address] [place] [phone] Office Visit Gastroenterology and Matthew Jerome 2 Hepatology Vik RodriguezBLilian Bedolla [address] [place] [phone] Appointment Radiology Matthew Jerome 2 YTyrell M.D. [address] [place] [phone] Hospital Gastroenterology and Mousa, Matthew Cirrhos is Alcoholic (HCC) 2 Encounter Hepatology Tyrell Rodriguez, Lilian [address] [place] [address] [phone] Anesthesia Event Gastroenterology and Rl, 2 Hepatology Ervin Burgos M.D. [address] [place] [address] [phone] Surgery Gastroenterology and Mousa, Matthew ESOPHAG OGASTRODUODENOSCOPY 2 Hepatology Tyrell Rodriguez, Lilian [address] [place] [phone] Scheduled Procedures Name Priority Associated Diagnoses Date/Time ESOPHAGOGASTRODUODENOSCOPY Cirrhosis Alc oholic (HCC) 03/20/2022 8:45 AM SLP Hypertension Portal (HCC) documented as of this encounter Visit Diagnoses Not on filedocumented in this encounter Care Teams Senior Javascript Engineer Relationship Specialty Start Date End Date Elsewhere, Pcp PCP - General Family Medicine 03/10/20 11/30/21 Ervin Schroeder MD Referring Provider Family Medicine 03/24/21[address] [place] [address] documented as of this encounter
--- OUTSIDE RECORDS SUMMARY | 2022-02-16 12:31 | XMS_ITS | Encounter Summary ---
:1990 Author Organization [facility] Address [address] [place] [address] Care Team Providers Name Role Phone Elsewhere, Pcp Primary Care Provider Unavailable Encounter Details Date Type Department Care Team Description 05/23/2021 Clinical Communication Department of Felicita Spicer Gastroenterology in [place], [place] [phone] [place] [address] ([facility]) [place] [address] Social History Tobacco Use Types Packs/Day [...] you attend jainism or Patient refused 2021 religion services? Do [...] at Date Recorded Female 04/12/2021 7:39 PM SMOKE JUMPER documented as of this encounter Miscellaneous Notes [...] she should avoid all ibuprofen and tylenol. Evaluation Specialist did inform her that often withliver [...] the OTC cold medications. She also asked software writer to pass along to Kerry as [...] She wonders if this could have contributed. Evaluation Specialist informed patient I would get all her questions to the provider and update her with her response regarding the cold medication. She had no further questions at this time. E JUMPER documented in this encounter Plan of Treatment Upcoming Encounters Date Type Specialty Care Team Description Telemedicine Transplant 2 Appointment Radiology Queenie Matthew 2 YTyrell M.D. [address] [place] [phone] Appointment Gastroenterology demian Silver 2 Hepatology Yue Burciaga M.D. [address] [place] [phone] Virtual Visit Transplant Matthew Jerome 2 Tyrell Rodriguez M.D. [address] [place] [phone] Office Visit Gastroenterology and Matthew Jerome 2 Hepatology Tyrell Rodriguez M.D. [address] [place] [phone] Appointment Radiology Matthew Jerome 2 YTyrell M.D. [address] [place] [phone] Hospital Gastroenterology and Queenie Matthew Cirrhos is Alcoholic (HCC) 2 Encounter Hepatology Tyrell Rodriguez M.D. [address] [place] [phone] Anesthesia Event Gastroenterology and Rl, Olinda Hepatology Ervin Burgos M.D. [address] [place] [phone] Surgery Gastroenterology and Matthew Jerome ESOPHAG OGASTRODUODENOSCOPY 2 Hepatology Tyrell Rodriguez M.D. 1025 [place] [phone] Scheduled Procedures Name Priority Associated Diagnoses Date/Time ESOPHAGOGASTRODUODENOSCOPY Cirrhosis Alc oholic (HCC) 03/20/2022 8:45 AM SMOKE JUMPER Hypertension Portal (HCC) documented as of this encounter Visit Diagnoses Not on filedocumented in this encounter Care Teams Inspector Handbag Frames Relationship Specialty Start Date End Date Elsewhere, Pcp PCP - General Family Medicine 03/10/20 11/30/21 Ervin Schroeder MD Referring Provider Family Medicine 03/24/[address] [place] [address] documented as of this encounter
--- OUTSIDE RECORDS SUMMARY | 2022-02-16 12:31 | XMS_ITS | Encounter Summary ---
:1990 Author Organization [facility] Address [address] [place] [address] Care Team Providers Name Role Phone Elsewhere, Pcp Primary Care Provider Unavailable Encounter Details Date Type Department Care Team Description 06/30/2021 Lab Department of [facility] Kerry Naranjo Enc ounter For Screening Medicine in [facility], C.N.P., For Ot her Viral Diseases [facility] (COVID-19) 1025 [facility] 1025 [place] [address] [place], [place] [phone] (Wo rk) Social History Tobacco Use [...] you attend holiness or Patient refused 2021 temple services? 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 [address] [place] [address] [phone] Appointment Gastroenterology and Adrianne, 2 Hepatology Yue Burciaga M.D. [address] [place] [phone] Virtual Visit Transplant Matthew Jerome 2 yTrell Rodriguez M.D. [address] [place] [phone] Office Visit Gastroenterology and Matthew Jerome 2 Hepatology Tyrell Rodriguez M.D. [address] [place] [phone] Appointment Radiology [facility] 2 Tyrell Rodriguez M.D. [address] [place] [phone] Hospital Gastroenterology and [facility] Cirrhos is Alcoholic (HCC) 2 Encounter Hepatology Tyrell Rodriguez M.D. [address] [place] [phone] Anesthesia Event Gastroenterology and Rl, 2 Hepatology Ervin Burgos M.D. [address] [place] [phone] Surgery Gastroenterology and [facility] ESOPHAG OGASTRODUODENOSCOPY 2 Hepatology Tyrell Rodriguez M.D. [address] [place] [address] [phone] Scheduled Procedures Name Priority Associated Diagnoses Date/Time ESOPHAGOGASTRODUODENOSCOPY Cirrhosis Alc oholic (HCC) 03/20/2022 8:45 AM FURNACE MECHANIC Hypertension Portal (HCC) documented as of this encounter Procedures Procedure Name Priority Date/Time Associated Diagnosis Comme nts SARS CORONAVIRUS-2 Routine 06/30/2021 2:34 PM Encounter For Re sults for this RNA, V FURNACE MECHANIC Screening For Other procedur e are in Viral Diseases the results (COVID-19) section. documented in this encounter Results SARS Coronavirus-2 RNA, V Asymptomatic (06/30/2021 2:34 PM FURNACE MECHANIC) [facility] Method Time Signature SARS-CoV-2 Swab, 06/30/2021 MKTO Specimen Nasopharynx 10:42 PM Source FURNACE MECHANIC SARS CoV-2 Undetected Undetected 06/30/2021 MKTO RNA, TMA 10:42 PM FURNACE MECHANIC Comment: SARS-CoV-2 RNA absent. This result does not rule out COVID-19 in the patient, as the sensitivity of the test depends o n the timing of the specimen collection and the quality of the specim en. Result should be correlated with patient's history and clinical presentat ion. ----ADDITIONAL INFORMATION---- This molecular amplification test was pe rformed using the Aptima SARS-CoV-2 assay ([employer] on the [employer] tem under emergency use authorization (EUA) by the U.S. Food and Drug Administ ration. Fact sheets for this EUA assay can be fo und at the following links: For Healthcare Providers: https://www.Orb[employer] a.gov/media/293560/download For Patients: https://www.fda.gov/media/ 197805/download Specimen Anatomical Collection Method Collection Time Receive d Time (Source) Location / / Volume Laterality Varies 06/30/2021 2:34 PM 5:12 (Nasopharynx) FURNACE MECHANIC PM FURNACE MECHANIC Kerry Naranjo APRN C.N.P., M.S.N. LAB MICROBIOLOGY - GENERAL ORDERABLES Performing Organization Address City/[facility] Phon e Number [facility]- [address] [place] [phone] [place] [address] System in [address] documented in this encounter Visit Diagnoses Diagnosis Encounter For Screening For Other Viral Diseases (COVID-19) Cirrhosis Alcoholic (HCC) Cirrhosis Alcoholic (HCC) Hypertension Portal (HCC) documented in this encounter Additional Health Concerns Infection Onset Date Last Indicated Resolved Time COVID19 Pending 06/30/2021 06/30/2021 06/30/2021 10:43 PM FURNACE MECHANIC documented as of this encounter Care Teams Communications Planner Relationship Specialty Start Date End Date Elsewhere, Pcp PCP - General Family Medicine 03/10/20 11/30/21 Ervin Schroeder MD Referring Provider Family Medicine 03/24/[address] [place], [place] [phone] documented as of this encounter
--- OUTSIDE RECORDS SUMMARY | 2022-02-16 12:31 | XMS_ITS | Encounter Summary ---
:1990 Author Organization [facility] Address [address] [place] [address] Care Team Providers Name Role Phone Elsewhere, Pcp Primary Care Provider Unavailable Encounter Details Date Type Department Care Team Description 05/06/2021 Clinical Communication Department of Kerry Naranjo Gastroenterology in [place], [place] C.N.P., M.S.N. 1025 [facility] 1025 [place] [address] [place], [place] [phone] Social History Tobacco Use Types Packs/Day [...] you attend sabianist or Patient refused 2021 mandaeism services? 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 [address] [place] [phone] Appointment Gastroenterology and Adrianne, 2 Hepatology Yue Burciaga M.D. [address] [place] [phone] Virtual Visit Transplant Matthew Jerome 2, M.B.B.S., M.D. [address] [place] [phone] Office Visit Gastroenterology and Matthew Jerome 2 Hepatology Tyrell Rodriguez M.D. [address] [place] [address] [phone] Appointment Radiology Matthew Jerome 2 YTyrell M.D. [address] [place] [address] [phone] Hospital Gastroenterology and [facility] Cirrhos is Alcoholic (HCC) 2 Encounter Hepatology Tyrell Rodriguez M.D. [address] [place] [phone] Anesthesia Event Gastroenterology and Rl, 2 Hepatology Ervin Burgos M.D. [address] [place] [address] [phone] Surgery Gastroenterology and [facility] ESOPHAG OGASTRODUODENOSCOPY 2 Hepatology Tyrell Rodriguez M.D. [address] [place] [phone] Scheduled Procedures Name Priority Associated Diagnoses Date/Time ESOPHAGOGASTRODUODENOSCOPY Cirrhosis Alc oholic (HCC) 03/20/2022 8:45 AM BELTING INSPECTOR Hypertension Portal (HCC) documented as of this encounter Visit Diagnoses Not on filedocumented in this encounter Care Teams Telecommunication Systems Designer Relationship Specialty Start Date End Date Elsewhere, Pcp PCP - General Family Medicine 03/10/20 11/30/21 Ervin Schroeder MD Referring Provider Family Medicine 03/24/[address] [place] [phone] documented as of this encounter
--- OUTSIDE RECORDS SUMMARY | 2022-02-16 12:31 | XMS_ITS | Encounter Summary ---
:1990 Author Organization [facility] Address [address] [place] [address] Care Team Providers Name Role Phone Elsewhere, Pcp Primary Care Provider Unavailable Encounter Details Date Type Department Care Team Description 06/26/2021 Clinical Communication Department of Jesse Gastroenterology in [place], [place] PAshish, M.S. [address] [facility] 1025 [place] [address] [place], [place] [phone] Social History Tobacco Use Types Packs/Day [...] you attend religious or Patient refused 2021 islam services? 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 - 06/26/2021 3:16 PM PROOF PASSER Could you put in an INR check for this patient? She will be having her EGD rescheduled per Dr. Paul.Last INR was 2.7 and has not been rechecked recently. If she has the procedure done in our soonest opening, she will need to have the INR drawn tomorrow (06-27-21) or Wednesday (06-30-21). Thank you for your help. Paty F PASSER documented in this encounter Plan of Treatment Upcoming Encounters Date Type Specialty Care Team Description Telemedicine Transplant 2 Appointment Radiology Matthew Jerome 2 YTyrell M.D. [address] [place] [phone] Appointment Gastroenterology and Adrianne, 2 Hepatology Yue Burciaga M.D. [address] [place] [phone] Virtual Visit Transplant LuisNew abdular 2 Tyrell Rodriguez, Lilian [address] [place] [phone] Office Visit Gastroenterology and Matthew Jerome 2 Hepatology Tyrell Rodriguez M.D. [address] [place] [phone] Appointment Radiology LuisNew abdular 2 Tyrell Rodriguez, Lilian [address] [place] [phone] Hospital Gastroenterology and Matthew Jerome Cirrhos is Alcoholic (HCC) 2 Encounter Hepatology Tyrell Rodriguez, Lilian [address] [place] [phone] Anesthesia Event Gastroenterology and Rl, 2 Hepatology Ervin Burgos M.D. [address] [place] [phone] Surgery Gastroenterology and Matthew Jerome ESOPHAG OGASTRODUODENOSCOPY 2 Hepatology Joshua RodriguezBSumaBGraeme, Lilian [address] [place] [phone] Scheduled Procedures Name Priority Associated Diagnoses Date/Time ESOPHAGOGASTRODUODENOSCOPY Cirrhosis Alc oholic (HCC) 03/20/2022 8:45 AM PROOF PASSER Hypertension Portal (HCC) documented as of this encounter Visit Diagnoses Not on filedocumented in this encounter Care Teams Trim Stencil Maker Relationship Specialty Start Date End Date Elsewhere, Pcp PCP - General Family Medicine 03/10/20 11/30/21 Ervin Schroeder MD Referring Provider Family Medicine 03/24/[address] [place] [phone] documented as of this encounter
--- OUTSIDE RECORDS SUMMARY | 2022-02-16 12:33 | XMS_ITS | Encounter Summary ---
:1990 Author Organization [facility] Address [address] [place] [address] Care Team Providers Name Role Phone Elsewhere, Pcp Primary Care Provider Unavailable Reason for Visit Reason Onset Date Comments Outpatient COVID-19 Testing 07/21/2020 Encounter Details Date Type Department Care Team Description 07/21/2020 External Outreach Department of Pedro Evans And Internal Medicine in [place] (Suspected) Exposure [place], [place] [address] [facility] To COVID-19 (Primary 2199 [place], [place] Dx) [place] [phone] Social History Tobacco Use Types Packs/Day Years [...] you attend gnosticism or Patient refused 2021 tenriism services? 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 [address] [place] [phone] Appointment Gastroenterology and Adrianne, 2 Hepatology Yue Burciaga M.D. [address] [place] [phone] Virtual Visit Transplant Matthew Jerome 2 Tyrell Rodriguez M.D. [address] [place] [phone] Office Visit Gastroenterology and Matthew Jerome 2 Hepatology Tyrell Rodriguez M.D. [address] [place] [phone] Appointment Radiology LuisMatthew abdul 2 Tyrell Rodriguez M.D. [address] [place] [phone] Hospital Gastroenterology and Matthew Jerome Cirrhos is Alcoholic (HCC) 2 Encounter Hepatology Tyrell Rodriguez M.D. [address] [place] [phone] Anesthesia Event Gastroenterology and Rl, 2 Hepatology Ervin Burgos M.D. [address] [place] [phone] Surgery Gastroenterology and Matthew Jerome ESOPHAG OGASTRODUODENOSCOPY 2 Hepatology Tyrell Rodriguez M.D. [address] [place] [phone] Scheduled Procedures Name Priority Associated Diagnoses Date/Time ESOPHAGOGASTRODUODENOSCOPY Cirrhosis Alc oholic (HCC) 03/20/2022 8:45 AM FRUIT GRADER Hypertension Portal (HCC) documented as of this encounter Visit Diagnoses Diagnosis Contact With And (Suspected) Exposure To COVID-19 - Primary Cirrhosis Alcoholic (HCC) Cirrhosis Alcoholic (HCC) Hypertension Portal (HCC) documented in this encounter Additional Health Concerns Infection Onset Date Last Indicated Resolved Time COVID19 Pending 07/21/2020 07/21/2020 07/22/2020 12:06 PM CDT documented as of this encounter Care Teams Health Science Specialist Relationship Specialty Start Date End Date Elsewhere, Pcp PCP - General Family Medicine 03/10/20 11/30/21 documented as of this encounter
--- OUTSIDE RECORDS SUMMARY | 2022-02-16 12:33 | XMS_ITS | Encounter Summary ---
:[address] [facility] Address [address] [place] [address] Care Team Providers Name Role Phone Elsewhere, Pcp Primary Care Provider Unavailable Reason for Referral Outpatient (Routine) - Closed Specialty Diagnoses / Referred By Contact Referred To Procedures Contact [facility] YARITZA C.N.P., M.S.N. [address] [place] [phone] Referral ID Status Reason Start Date Expiration Date Visits Requ ested Visits Authorized [id number] Closed 03/15/2021 03/15/2022 1 1 D TRAINING AGENT Reason for Visit Auth/Cert Specialty Diagnoses / Procedures Referred By Contact Refer red To Contact Diagnoses Change Mental Status Liver failure Procedures Referral ID Status Reason Start Date Expiration Date Visits Requ ested Visits Authorized [id number] 1 1 Encounter Details Date Type Department Care Team Description 03/12/2021 - Hospital Encounter [facility] Antwan Lazo D.O. [address] [place] [phone] Change Mental Status (Primary Dx); [facility] [address] [place] [phone] Cirrhosis Alcoholic (HCC) [facility] [address] [place] [phone] [place] [phone] Social History Tobacco Use Types Packs/Day [...] you attend yarsani or Patient refused 2021 restorationism services? Do [...] Date Recorded Female 04/12/2021 7:39 PM FIELD TRAINING AGENT documented as of this encounter Last Filed Vital Signs Vital Sign Reading Time Taken Comments Blood Pressure 114/84 03/24/2021 6:18 AM FIELD TRAINING AGENT Pulse 101 03/24/2021 6:18 AM FIELD TRAINING AGENT Temperature 37.5 ??C (99.5 ??F) 03/24/2021 6:18 AM FIELD TRAINING AGENT Respiratory Rate 16 03/23/2021 10:36 PM FIELD TRAINING AGENT Oxygen Saturation 97% 03/24/2021 6:18 AM FIELD TRAINING AGENT Inhaled Oxygen Concentration - - Weight 56.6 kg (124 lb 12.5 oz) 03/23/2021 6:35 AM FIELD TRAINING AGENT Height 157.5 cm (5' 2) 03/12/2021 6:15 AM FIELD TRAINING AGENT Body Mass Index 22.82 03/12/2021 6:15 AM FIELD TRAINING AGENT documented in this encounter Discharge Summaries Darian Thomas M.D., J.D. - 03/24/2021 8:11 AM CST DISCHARGE SUMMARY BRIEF OVERVIEW Discharge Hospital: Hospital: [facility] Discharge Provider: No att. providers found Primary Care Providers: Elsewhere, Pcp (General) No address on file Discharge Provider Team: [facility] Internal Medicine (HIM) [facility] Primary Care Provider Phone Number: None [...] on CT scan. Newly diagnosed PFO with vvgar-mi-eqiw atrial shunt. Severe left atrial enlargement. Consider [...] consider having patient follow up with a station air traffic control specialist in the outpatient setting. MEDICATIONS CHANGED DURING [...] staffed with Dr. Guzman. Darian Thomas MD, [facility] Residency D TRAINING AGENT Associated attestation - Keerthi Guzman M.D. - 03/25/2021 7:48 AM FIELD TRAINING AGENT I saw the patient on the day [...] encounter Discharge Instructions Discharge Instr - Non [place] Follow-UpsHope Ke[facility] - 03/24/2021 10:30 AM FIELD TRAINING AGENT Post Hospital follow-up Dr. Schroeder on: Monday, March 26 at 9:[address] [address] Gastroenterology and Hepatology consult with Dr. 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 2. There are no identified manager document needs at this time. 3. research manager will assist as needed and requested. Nola Marcos R.N. 03/24/21 D TRAINING AGENT Zenobia Dickson, Pharm.D., R.Ph. - 03/23/2021 4:13 [...] oral SBP prophylaxis Zenobia Dickson Pharm.D., R.Ph. D TRAINING AGENT Darian Thomas M.D., J.D. - 03/23/2021 7:25 [...] staffed with Dr. Guzman. Darian Thomas MD [facility] Residency D TRAINING AGENT Associated attestation - Keerthi Guzman M.D. - 03/23/2021 2:26 PM FIELD TRAINING AGENT I saw and evaluated the patient, participating [...] insist that she saw a nurse and nurses' association counselor friend of hers, Stephanie. She says this [...] spent in counseling and coordination of care. D TRAINING AGENT Associated attestation - Desire Ram M.B.B.S., M.D. - 03/25/2021 11:28 PM FIELD TRAINING AGENT I saw and evaluated the patient, participating [...] staffed with Dr. Guzman. Darian Thomas MD [facility] Residency D TRAINING AGENT Associated attestation - Keerthi Guzman M.D. - 03/22/2021 3:19 PM FIELD TRAINING AGENT I saw and evaluated the patient, participating [...] Monitoring/Evaluation Monitoring: Meals/Supplement Intake,Weight Status,Mental Status/Confusion,Nausea/Vomiting/Diarrhea,Pertinent Labs D TRAINING AGENT Darian Thomas M.D., J.Jeri - 03/21/2021 12:16 [...] considered holdable if she decides to leave [place] --cont. Zyprexa 5 mg q.h.s. p.r.n. per [...] staffed with Dr. Guzman. Darian Thomas MD [facility] Residency D TRAINING AGENT Associated attestation - Keerthi Guzman M.D. - 03/21/2021 2:26 PM FIELD TRAINING AGENT I saw and evaluated the patient, participating [...] and happy to accept patient to the [facility] once medically stable --per psych, patient is [...] staffed with Dr. Guzman. Darian Thomas MD [facility] Residency D TRAINING AGENT Associated attestation - Keerthi Guzman M.D. - 03/20/2021 12:10 PM FIELD TRAINING AGENT I saw and evaluated the patient, participating [...] discharge: oral SBP prophylaxis Paco Shah, PharmD, [facility]. D TRAINING AGENT Bernarda Manning APRN, C.N.P., D.N.P. - 03/19/2021 [...] last night. He says these woman working [place] and would not have been in the [...] Daily Given, 5 mg at 03/19 135 soummoydz-hbzycy-fcibcejqf 280-160-250 mg per packet 2 packet (PHOS-NAK) [...] considered holdable if she decides to leave [place] without a safe discharge plan in place. - Will continue to follow and reassess the need for inpatient psychiatry once she is more medically stable, and the encephalopathy has resolved. ?? ADMINISTRATIVE BILLING Total time is 35 minutes with greater than 25 minutes spent in counseling and coordination of care. D TRAINING AGENT Darian Thomas M.D., J.D. - 03/19/2021 1:41 [...] staffed with Dr. Guzman. Darian Thomas MD [facility] Residency D TRAINING AGENT Associated attestation - Keerthi Guzman M.D. - 03/19/2021 7:11 PM FIELD TRAINING AGENT I saw and evaluated the patient, participating [...] oral SBP prophylaxis Virginie Valerio, PharmSumaD., R.Ph. D TRAINING AGENT Sofi Tomlin RDN, TAIL - 03/18/2021 2:36 PM CST Clinical Note [...] not eaten yet this morning and encouraged conventional underwriter to allow pt to rest as [...] 57 kg BMI (Calculated): 23 kg/m?? % [place] Body Weight: 108 % IBW Adjusted Body [...] EVALUATION: Nutrition Monitoring/Evaluation Monitoring: Meals/Supplement Intake,Nausea/Vomiting/Diarrhea,Pertinent Labs D TRAINING AGENT Paco Shah, Pharm.D., R.Ph. - 03/18/2021 11:03 [...] oral SBP prophylaxis Virginie Valerio, Pharm.D., R.Ph. D TRAINING AGENT Darian Thomas M.D., J.D. - 03/18/2021 10:08 [...] staffed with Dr. Valle. Darian Thomas MD [facility] Res[facility] D TRAINING AGENT Associated attestation - Ulises Valle M.B.B.S. - 03/20/2021 12:12 PM FIELD TRAINING AGENT I saw and evaluated the patient, participating [...] -- Take 50 mg by mouth daily. D TRAINING AGENT Junaid Cast M.D. - 03/17/2021 3:02 PM [...] M.B.B.S. Junaid Cast M.D. PGY1 [facility] D TRAINING AGENT Associated attestation - Ulises Valle M.B.B.S. - 03/18/2021 6:06 PM FIELD TRAINING AGENT I saw and evaluated the patient, participating [...] Procedure Component Value - Date/Time Gram Stain [[id number]] Collected: 03/12/21 1546 Lab Status: Final result Specimen: Peritoneal Fluid Updated: 03/12/21 1822 Gram Stain No organisms seen. White blood cells present. Stain performed on concentrated cytospin preparation. Bacterial Culture, Anaerobic + Susc [[id number]] Collected: 03/12/21 1546 Lab Status: In process Specimen: Peritoneal Fluid Updated: 03/12/21 1548 Bacterial Culture, Aerobic + Susc [[id number]] Collected: 03/12/21 1546 Lab Status: Preliminary result Specimen: Peritoneal Fluid Updated: 03/13/21 1129 Bacterial Culture, Aerobic + Susc No growth to date Bacterial Culture, Aerobic + Susc [[id number]] Collected: 03/12/21 1234 Lab Status: Preliminary result Specimen: Pleural Fluid, Right Updated: 03/13/21 1133 Bacterial Culture, Aerobic + Susc No growth to date Bacterial Culture, Anaerobic + Susc [[id number]] Collected: 03/12/21 1234 Lab Status: In process Specimen: Pleural Fluid, Right Updated: 03/12/21 1308 Gram Stain [[id number]] Collected: 03/12/21 1234 Lab Status: Final result Specimen: Pleural Fluid, Right Updated: 03/12/21 1646 Gram Stain No organisms seen. White blood cells present. Stain performed on concentrated cytospin preparation. Gram Stain [[id number]] Collected: 03/12/21 1234 Lab Status: No result Specimen: Pleural Fluid, Right SARS Coronavirus-2 RNA, V Symptomatic [[id number]] Collected: 03/12/21 1100 Lab Status: Final result [...] was performed using the Aptima SARS-CoV-2 assay ([employer] on the Context app System under emergency use authorization (EUA) by the U.S. Food and Drug Administration. Fact sheets for this EUA assay can be found at the following links: For Healthcare Providers: https://www.fda.gov/media/238786/download For Patients: https://www.fda.gov/media/086692/download Influenza A/B and RSV, PCR, Varies [[id number]] Collected: 03/12/21 1100 Lab Status: Final result Specimen: Varies from Nasopharynx Updated: 03/13/21 1155 Influenza A/B and RSV, Source Swab, Nasopharynx Influenza A, PCR Undetected Comment: Influenza A RNA absent. Influenza B, PCR Undetected Comment: Influenza B RNA absent. Respiratory Syncytial Virus, PCR Undetected Comment: RSV RNA absent. ----ADDITIONAL INFORMATION---- This test has been modified from the centrifuge separator tender's instructions. Its performance characteristics were determined by [facility] in a manner consistent with CLIA requirements. This test has not been cleared or approved by the U.S. Food and Drug Administration. Bacteria / Raudel Culture, Blood #2 [[id number]] Collected: 03/12/21 0710 Lab Status: Preliminary result Specimen: Blood, Peripheral Draw Updated: 03/13/21 0805 Bacteria/Raudel Culture, Blood No growth to date. MRSA PCR, Nasal [[id number]] Collected: 03/12/21622 Lab Status: Final result Specimen: Swab from Nares Updated: 03/12/21 1050 MRSA Screen, Nasal by PCR Negative Hepatitis B Surface Antigen [[id number]] Collected: 03/12/21557 Lab Status: Final result Specimen: Blood, Peripheral Draw Updated: 03/12/21 0744 HBs Antigen, S Nonreactive Comment: Biotin has been identified by the centrifuge separator tender as a potential interfering substance. Higher concentrations of biotin may be found in multivitamins, hair/nail supplements, and workout supplements. If the result does not match clinical observations, repeat testing after patient refrains from the use of supplements for at least 12 hours. Hepatitis B Core IgM Ab [[id number]] Collected: 03/12/21557 Lab Status: Final result Specimen: Blood, Peripheral Draw Updated: 03/13/21 09 HBc IgM Ab, S Negative Hepatitis A IgM Ab, Serum [[id number]] Collected: 03/12/21557 Lab Status: Final result Specimen: Blood, Peripheral Draw Updated: 03/13/21 0951 Hepatitis A IgM Ab, S Negative Comment: Result does not exclude the possibility of exposure to hepatitis A virus. Antibody level during early infection stage may be below the limit of detection of the assay. HCV Ab w/Reflex to HCV PCR, Serum [[id number]] Collected: 03/12/21557 Lab Status: Final result Specimen: Blood, Peripheral Draw Updated: 03/13/21 09 HCV Ab, S Negative Comment: Lfdlwe-gd-tpxncp ratio is <1.00. Bacteria / Raudel Culture, Blood #1 [[id number]] Collected: 03/12/21556 Lab Status: Preliminary result Specimen: [...] out given to hospitalist. Lizet Navarro M.D. D TRAINING AGENT Ulises Valle M.B.B.S. - 03/16/2021 5:30 PM [...] more details on the specifics ofthe plan. D TRAINING AGENT Kerry Naranjo APRN, C.N.P., M.S.N. - 03/16/2021 [...] ICU attending. Kerry Naranjo APRN, Katrin.N.Frances, M.S.N. D TRAINING AGENT Daron Cochran, PharmSumaD., R.Ph. - 03/16/2021 9:20 [...] Procedure Component Value - Date/Time Gram Stain [[id number]] Collected: 03/12/21 1541 Lab Status: Final result Specimen: Peritoneal Fluid Updated: 03/12/211821 Gram Stain No organisms seen. White blood cells present. Stain performed on concentrated cytospin preparation. Bacterial Culture, Anaerobic + Susc [[id number]] Collected: 03/12/21 1546 Lab Status: Preliminary result Specimen: Peritoneal Fluid Updated: 03/14/21 0523 Bacterial Culture, Anaerobic No growth to date. Bacterial Culture, Aerobic + Susc [[id number]] Collected: 03/12/21 1546 Lab Status: Preliminary result Specimen: Peritoneal Fluid Updated: 03/13/21 1129 Bacterial Culture, Aerobic + Susc No growth to date Bacterial Culture, Aerobic + Susc [[id number]] Collected: 03/12/21 1234 Lab Status: Preliminary result Specimen: Pleural Fluid, Right Updated: 03/13/21 1133 Bacterial Culture, Aerobic + Susc No growth to date Bacterial Culture, Anaerobic + Susc [[id number]] Collected: 03/12/21 1234 Lab Status: Preliminary result Specimen: Pleural Fluid, Right Updated: 03/14/21 0523 Bacterial Culture, Anaerobic No growth to date. Gram Stain [[id number]] Collected: 03/12/21 123 Lab Status: Final result Specimen: Pleural Fluid, Right Updated: 03/12/21 1646 Gram Stain No organisms seen. White blood cells present. Stain performed on concentrated cytospin preparation. Gram Stain [[id number]] Collected: 03/12/21 1234 Lab Status: No result Specimen: Pleural Fluid, Right SARS Coronavirus-2 RNA, V Symptomatic [[id number]] Collected: 03/12/21 1100 Lab Status: Final result [...] was performed using the Aptima SARS-CoV-2 assay ([employer] on the Context app System under emergency use authorization (EUA) by the U.S. Food and Drug Administration. Fact sheets for this EUA assay can be found at the following links: For Healthcare Providers: https://www.fda.gov/media/072780/download For Patients: https://www.fda.gov/media/162411/download Influenza A/B and RSV, PCR, Varies [[id number]] Collected: 03/12/21 1100 Lab Status: Final result Specimen: Varies from Nasopharynx Updated: 03/13/21 1155 Influenza A/B and RSV, Source Swab, Nasopharynx Influenza A, PCR Undetected Comment: Influenza A RNA absent. Influenza B, PCR Undetected Comment: Influenza B RNA absent. Respiratory Syncytial Virus, PCR Undetected Comment: RSV RNA absent. ----ADDITIONAL INFORMATION---- This test has been modified from the centrifuge separator tender's instructions. Its performance characteristics were determined by [facility] in a manner consistent with CLIA requirements. This test has not been cleared or approved by the U.S. Food and Drug Administration. Bacteria / Raudel Culture, Blood #2 [[id number]] Collected: 03/12/21 0710 Lab Status: Preliminary result Specimen: Blood, Peripheral Draw Updated: 03/16/21 0805 Bacteria/Raudel Culture, Blood No growth to date. MRSA PCR, Nasal [[id number]] Collected: 03/12/21 0623 Lab Status: Final result Specimen: Swab from Nares Updated: 03/12/21 1050 MRSA Screen, Nasal by PCR Negative Hepatitis B Surface Antigen [[id number]] Collected: 03/12/21557 Lab Status: Final result Specimen: Blood, Peripheral Draw Updated: 03/12/21 0744 HBs Antigen, S Nonreactive Comment: Biotin has been identified by the centrifuge separator tender as a potential interfering substance. Higher concentrations of biotin may be found in multivitamins, hair/nail supplements, and workout supplements. If the result does not match clinical observations, repeat testing after patient refrains from the use of supplements for at least 12 hours. Hepatitis B Core IgM Ab [[id number]] Collected: 03/12/21557 Lab Status: Final result Specimen: Blood, Peripheral Draw Updated: 03/13/21911 HBc IgM Ab, S Negative Hepatitis A IgM Ab, Serum [[id number]] Collected: 03/12/21557 Lab Status: Final result Specimen: Blood, Peripheral Draw Updated: 03/13/21950 Hepatitis A IgM Ab, S Negative Comment: Result does not exclude the possibility of exposure to hepatitis A virus. Antibody level during early infection stage may be below the limit of detection of the assay. HCV Ab w/Reflex to HCV PCR, Serum [[id number]] Collected: 03/12/21 0558 Lab Status: Final result Specimen: Blood, Peripheral Draw Updated: 03/13/21 0925 HCV Ab, S Negative Comment: Lhavhb-ji-hwzfir ratio is <1.00. Bacteria / Raudel Culture, Blood #1 [[id number]] Collected: 03/12/21 0557 Lab Status: Preliminary result [...] oral SBP prophylaxis Virginie Valerio, Pharm.D., R.Ph. D TRAINING AGENT Lizet Navarro M.D. - 03/15/2021 1:19 PM [...] Procedure Component Value - Date/Time Gram Stain [[id number]] Collected: 03/12/21 1546 Lab Status: Final result Specimen: Peritoneal Fluid Updated: 03/12/21 1822 Gram Stain No organisms seen. White blood cells present. Stain performed on concentrated cytospin preparation. Bacterial Culture, Anaerobic + Susc [[id number]] Collected: 03/12/21 1546 Lab Status: In process Specimen: Peritoneal Fluid Updated: 03/12/21 1548 Bacterial Culture, Aerobic + Susc [[id number]] Collected: 03/12/21 1546 Lab Status: Preliminary result Specimen: Peritoneal Fluid Updated: 03/13/21 1129 Bacterial Culture, Aerobic + Susc No growth to date Bacterial Culture, Aerobic + Susc [[id number]] Collected: 03/12/21 1234 Lab Status: Preliminary result Specimen: Pleural Fluid, Right Updated: 03/13/21 1133 Bacterial Culture, Aerobic + Susc No growth to date Bacterial Culture, Anaerobic + Susc [[id number]] Collected: 03/12/21 1234 Lab Status: In process Specimen: Pleural Fluid, Right Updated: 03/12/21 1308 Gram Stain [[id number]] Collected: 03/12/21 1234 Lab Status: Final result Specimen: Pleural Fluid, Right Updated: 03/12/21 1646 Gram Stain No organisms seen. White blood cells present. Stain performed on concentrated cytospin preparation. Gram Stain [[id number]] Collected: 03/12/21 1234 Lab Status: No result Specimen: Pleural Fluid, Right SARS Coronavirus-2 RNA, V Symptomatic [[id number]] Collected: 03/12/21 1100 Lab Status: Final result [...] was performed using the Aptima SARS-CoV-2 assay ([employer] on the Context app System under emergency use authorization (EUA) by the U.S. Food and Drug Administration. Fact sheets for this EUA assay can be found at the following links: For Healthcare Providers: https://www.fda.gov/media/858159/download For Patients: https://www.fda.gov/media/883125/download Influenza A/B and RSV, PCR, Varies [[id number]] Collected: 03/12/21 1100 Lab Status: Final result Specimen: Varies from Nasopharynx Updated: 03/13/21 1155 Influenza A/B and RSV, Source Swab, Nasopharynx Influenza A, PCR Undetected Comment: Influenza A RNA absent. Influenza B, PCR Undetected Comment: Influenza B RNA absent. Respiratory Syncytial Virus, PCR Undetected Comment: RSV RNA absent. ----ADDITIONAL INFORMATION---- This test has been modified from the centrifuge separator tender's instructions. Its performance characteristics were determined by [facility] in a manner consistent with CLIA requirements. This test has not been cleared or approved by the U.S. Food and Drug Administration. Bacteria / Raudel Culture, Blood #2 [[id number]] Collected: 03/12/21 0710 Lab Status: Preliminary result Specimen: Blood, Peripheral Draw Updated: 03/13/21 0805 Bacteria/Raudel Culture, Blood No growth to date. MRSA PCR, Nasal [[id number]] Collected: 03/12/21 0623 Lab Status: Final result Specimen: Swab from Nares Updated: 03/12/21 1050 MRSA Screen, Nasal by PCR Negative Hepatitis B Surface Antigen [[id number]] Collected: 03/12/21557 Lab Status: Final result Specimen: Blood, Peripheral Draw Updated: 03/12/21 0744 HBs Antigen, S Nonreactive Comment: Biotin has been identified by the centrifuge separator tender as a potential interfering substance. Higher concentrations of biotin may be found in multivitamins, hair/nail supplements, and workout supplements. If the result does not match clinical observations, repeat testing after patient refrains from the use of supplements for at least 12 hours. Hepatitis B Core IgM Ab [[id number]] Collected: 03/12/21557 Lab Status: Final result Specimen: Blood, Peripheral Draw Updated: 03/13/21911 HBc IgM Ab, S Negative Hepatitis A IgM Ab, Serum [[id number]] Collected: 03/12/21557 Lab Status: Final result Specimen: Blood, Peripheral Draw Updated: 03/13/21950 Hepatitis A IgM Ab, S Negative Comment: Result does not exclude the possibility of exposure to hepatitis A virus. Antibody level during early infection stage may be below the limit of detection of the assay. HCV Ab w/Reflex to HCV PCR, Serum [[id number]] Collected: 03/12/21557 Lab Status: Final result Specimen: Blood, Peripheral Draw Updated: 03/13/21924 HCV Ab, S Negative Comment: Fzljai-mz-amvryi ratio is <1.00. Bacteria / Raudel Culture, Blood #1 [[id number]] Collected: 03/12/21556 Lab Status: Preliminary result Specimen: [...] care time 35 min Lizet Navarro M.D. D TRAINING AGENT Kerry Naranjo, YARITZA, C.N.P., M.S.N. - 03/15/2021 12:41 PM CST SUBJECTIVE Catia Carias reports having no nausea, vomiting and abdominal pain. Her symptoms are improving.She no longer is intubated, with extubated yesterday afternoon. Discussed with her need for follow-up in the GI clinic with loom setter; she is interested in that appointment I [...] Naranjo APRN, C.N.P., M.S.N. Gastroenterology and Hepatology [facility] D TRAINING AGENT Daron Cochran, DSuma, R.Ph. - 03/15/2021 9:05 [...] Procedure Component Value - Date/Time Gram Stain [[id number]] Collected: 03/12/211545 Lab Status: Final result Specimen: Peritoneal Fluid Updated: 03/12/21 182 Gram Stain No organisms seen. White blood cells present. Stain performed on concentrated cytospin preparation. Bacterial Culture, Anaerobic + Susc [[id number]] Collected: 03/12/21 154 Lab Status: Preliminary result Specimen: Peritoneal Fluid Updated: 03/14/21 0523 Bacterial Culture, Anaerobic No growth to date. Bacterial Culture, Aerobic + Susc [[id number]] Collected: 03/12/21 1546 Lab Status: Preliminary result Specimen: Peritoneal Fluid Updated: 03/13/21 1129 Bacterial Culture, Aerobic + Susc No growth to date Bacterial Culture, Aerobic + Susc [[id number]] Collected: 03/12/21 1234 Lab Status: Preliminary result Specimen: Pleural Fluid, Right Updated: 03/13/21 1133 Bacterial Culture, Aerobic + Susc No growth to date Bacterial Culture, Anaerobic + Susc [[id number]] Collected: 03/12/214 Lab Status: Preliminary result Specimen: Pleural Fluid, Right Updated: 03/14/21 0523 Bacterial Culture, Anaerobic No growth to date. Gram Stain [[id number]] Collected: 03/12/211233 Lab Status: Final result Specimen: Pleural Fluid, Right Updated: 03/12/21 1646 Gram Stain No organisms seen. White blood cells present. Stain performed on concentrated cytospin preparation. Gram Stain [[id number]] Collected: 03/12/211233 Lab Status: No result Specimen: Pleural Fluid, Right SARS Coronavirus-2 RNA, V Symptomatic [[id number]] Collected: 03/12/21 1100 Lab Status: Final result [...] was performed using the Aptima SARS-CoV-2 assay ([employer] on the [employer] app System under emergency use authorization (EUA) by the U.S. Food and Drug Administration. Fact sheets for this EUA assay can be found at the following links: For Healthcare Providers: https://www.fda.gov/media/808627/download For Patients: https://www.fda.gov/media/189630/download Influenza A/B and RSV, PCR, Varies [[id number]] Collected: 03/12/21 1100 Lab Status: Final result Specimen: Varies from Nasopharynx Updated: 03/13/21 1155 Influenza A/B and RSV, Source Swab, Nasopharynx Influenza A, PCR Undetected Comment: Influenza A RNA absent. Influenza B, PCR Undetected Comment: Influenza B RNA absent. Respiratory Syncytial Virus, PCR Undetected Comment: RSV RNA absent. ----ADDITIONAL INFORMATION---- This test has been modified from the centrifuge separator tender's instructions. Its performance characteristics were determined by [facility] in a manner consistent with CLIA requirements. This test has not been cleared or approved by the U.S. Food and Drug Administration. Bacteria / Raudel Culture, Blood #2 [[id number]] Collected: 03/12/21709 Lab Status: Preliminary result Specimen: Blood, Peripheral Draw Updated: 03/15/21804 Bacteria/Raudel Culture, Blood No growth to date. MRSA PCR, Nasal [[id number]] Collected: 03/12/21622 Lab Status: Final result Specimen: Swab from Nares Updated: 03/12/21 105 MRSA Screen, Nasal by PCR Negative Hepatitis B Surface Antigen [[id number]] Collected: 03/12/21557 Lab Status: Final result Specimen: Blood, Peripheral Draw Updated: 03/12/21743 HBs Antigen, S Nonreactive Comment: Biotin has been identified by the centrifuge separator tender as a potential interfering substance. Higher concentrations of biotin may be found in multivitamins, hair/nail supplements, and workout supplements. If the result does not match clinical observations, repeat testing after patient refrains from the use of supplements for at least 12 hours. Hepatitis B Core IgM Ab [[id number]] Collected: 03/12/21557 Lab Status: Final result Specimen: Blood, Peripheral Draw Updated: 03/13/21911 HBc IgM Ab, S Negative Hepatitis A IgM Ab, Serum [[id number]] Collected: 03/12/21557 Lab Status: Final result Specimen: Blood, Peripheral Draw Updated: 03/13/21950 Hepatitis A IgM Ab, S Negative Comment: Result does not exclude the possibility of exposure to hepatitis A virus. Antibody level during early infection stage may be below the limit of detection of the assay. HCV Ab w/Reflex to HCV PCR, Serum [[id number]] Collected: 03/12/21557 Lab Status: Final result Specimen: Blood, Peripheral Draw Updated: 03/13/21924 HCV Ab, S Negative Comment: Ekprid-rq-tolksz ratio is <1.00. Bacteria / Raudel Culture, Blood #1 [[id number]] Collected: 03/12/21556 Lab Status: Preliminary result Specimen: [...] at discharge: TBD Virginie Valerio, Pharm.D., R.Ph. D TRAINING AGENT Lizet Navarro M.D. - 03/14/2021 12:10 PM [...] Procedure Component Value - Date/Time Gram Stain [[id number]] Collected: 03/12/211545 Lab Status: Final result Specimen: Peritoneal Fluid Updated: 03/12/211821 Gram Stain No organisms seen. White blood cells present. Stain performed on concentrated cytospin preparation. Bacterial Culture, Anaerobic + Susc [[id number]] Collected: 03/12/21 1546 Lab Status: In process Specimen: Peritoneal Fluid Updated: 03/12/21 154 Bacterial Culture, Aerobic + Susc [[id number]] Collected: 03/12/21 1546 Lab Status: Preliminary result Specimen: Peritoneal Fluid Updated: 03/13/21 1129 Bacterial Culture, Aerobic + Susc No growth to date Bacterial Culture, Aerobic + Susc [[id number]] Collected: 03/12/21 1234 Lab Status: Preliminary result Specimen: Pleural Fluid, Right Updated: 03/13/21 1133 Bacterial Culture, Aerobic + Susc No growth to date Bacterial Culture, Anaerobic + Susc [[id number]] Collected: 03/12/21 1234 Lab Status: In process Specimen: Pleural Fluid, Right Updated: 03/12/21 1308 Gram Stain [[id number]] Collected: 03/12/21 123 Lab Status: Final result Specimen: Pleural Fluid, Right Updated: 03/12/21 1646 Gram Stain No organisms seen. White blood cells present. Stain performed on concentrated cytospin preparation. Gram Stain [[id number]] Collected: 03/12/21 123 Lab Status: No result Specimen: Pleural Fluid, Right SARS Coronavirus-2 RNA, V Symptomatic [[id number]] Collected: 03/12/21 1100 Lab Status: Final result [...] was performed using the Aptima SARS-CoV-2 assay ([employer] on the Context app System under emergency use authorization (EUA) by the U.S. Food and Drug Administration. Fact sheets for this EUA assay can be found at the following links: For Healthcare Providers: https://www.fda.gov/media/166575/download For Patients: https://www.fda.gov/media/121285/download Influenza A/B and RSV, PCR, Varies [[id number]] Collected: 03/12/21 1100 Lab Status: Final result Specimen: Varies from Nasopharynx Updated: 03/13/21 1155 Influenza A/B and RSV, Source Swab, Nasopharynx Influenza A, PCR Undetected Comment: Influenza A RNA absent. Influenza B, PCR Undetected Comment: Influenza B RNA absent. Respiratory Syncytial Virus, PCR Undetected Comment: RSV RNA absent. ----ADDITIONAL INFORMATION---- This test has been modified from the centrifuge separator tender's instructions. Its performance characteristics were determined by [facility] in a manner consistent with CLIA requirements. This test has not been cleared or approved by the U.S. Food and Drug Administration. Bacteria / Raudel Culture, Blood #2 [[id number]] Collected: 03/12/21709 Lab Status: Preliminary result Specimen: Blood, Peripheral Draw Updated: 03/13/21804 Bacteria/Raudel Culture, Blood No growth to date. MRSA PCR, Nasal [[id number]] Collected: 03/12/21622 Lab Status: Final result Specimen: Swab from Nares Updated: 03/12/21 105 MRSA Screen, Nasal by PCR Negative Hepatitis B Surface Antigen [[id number]] Collected: 03/12/21557 Lab Status: Final result Specimen: Blood, Peripheral Draw Updated: 03/12/21743 HBs Antigen, S Nonreactive Comment: Biotin has been identified by the centrifuge separator tender as a potential interfering substance. Higher concentrations of biotin may be found in multivitamins, hair/nail supplements, and workout supplements. If the result does not match clinical observations, repeat testing after patient refrains from the use of supplements for at least 12 hours. Hepatitis B Core IgM Ab [[id number]] Collected: 03/12/21557 Lab Status: Final result Specimen: Blood, Peripheral Draw Updated: 03/13/21911 HBc IgM Ab, S Negative Hepatitis A IgM Ab, Serum [[id number]] Collected: 03/12/21557 Lab Status: Final result Specimen: Blood, Peripheral Draw Updated: 03/13/21950 Hepatitis A IgM Ab, S Negative Comment: Result does not exclude the possibility of exposure to hepatitis A virus. Antibody level during early infection stage may be below the limit of detection of the assay. HCV Ab w/Reflex to HCV PCR, Serum [[id number]] Collected: 03/12/21557 Lab Status: Final result Specimen: Blood, Peripheral Draw Updated: 03/13/21924 HCV Ab, S Negative Comment: Lvjrvt-tj-xtqnnn ratio is <1.00. Bacteria / Raudel Culture, Blood #1 [[id number]] Collected: 03/12/21556 Lab Status: Preliminary result Specimen: [...] care time 35 min Lizet Navarro M.D. D TRAINING AGENT Kerry Naranjo APRN, C.N.P., M.S.N. - 03/14/2021 [...] Naranjo APRN, C.N.P., M.S.N. Gastroenterology and Hepatology [facility] D TRAINING AGENT Associated attestation - Leslie Hawk M.D. - 03/14/2021 1:07 PM FIELD TRAINING AGENT This is a supervisory note for gastroenterology [...] ceruloplasmin, I have discussed her case with loom setter, since patient is anuric currently, we will [...] Procedure Component Value - Date/Time Gram Stain [[id number]] Collected: 03/12/21 1544 Lab Status: Final result Specimen: Peritoneal Fluid Updated: 03/12/21 1822 Gram Stain No organisms seen. White blood cells present. Stain performed on concentrated cytospin preparation. Bacterial Culture, Anaerobic + Susc [[id number]] Collected: 03/12/21 1546 Lab Status: Preliminary result Specimen: Peritoneal Fluid Updated: 03/14/21 0523 Bacterial Culture, Anaerobic No growth to date. Bacterial Culture, Aerobic + Susc [[id number]] Collected: 03/12/21 1546 Lab Status: Preliminary result Specimen: Peritoneal Fluid Updated: 03/13/21 1129 Bacterial Culture, Aerobic + Susc No growth to date Bacterial Culture, Aerobic + Susc [[id number]] Collected: 03/12/21 1234 Lab Status: Preliminary result Specimen: Pleural Fluid, Right Updated: 03/13/21 1133 Bacterial Culture, Aerobic + Susc No growth to date Bacterial Culture, Anaerobic + Susc [[id number]] Collected: 03/12/21 1234 Lab Status: Preliminary result Specimen: Pleural Fluid, Right Updated: 03/14/21 0523 Bacterial Culture, Anaerobic No growth to date. Gram Stain [[id number]] Collected: 03/12/21 1234 Lab Status: Final result Specimen: Pleural Fluid, Right Updated: 03/12/21 1646 Gram Stain No organisms seen. White blood cells present. Stain performed on concentrated cytospin preparation. Gram Stain [[id number]] Collected: 03/12/21 1234 Lab Status: No result Specimen: Pleural Fluid, Right SARS Coronavirus-2 RNA, V Symptomatic [[id number]] Collected: 03/12/21 1100 Lab Status: Final result [...] was performed using the Aptima SARS-CoV-2 assay ([employer] on the Context app System under emergency use authorization (EUA) by the U.S. Food and Drug Administration. Fact sheets for this EUA assay can be found at the following links: For Healthcare Providers: https://www.fda.gov/media/400306/download For Patients: https://www.fda.gov/media/008528/download Influenza A/B and RSV, PCR, Varies [[id number]] Collected: 03/12/21 1100 Lab Status: Final result Specimen: Varies from Nasopharynx Updated: 03/13/21 1155 Influenza A/B and RSV, Source Swab, Nasopharynx Influenza A, PCR Undetected Comment: Influenza A RNA absent. Influenza B, PCR Undetected Comment: Influenza B RNA absent. Respiratory Syncytial Virus, PCR Undetected Comment: RSV RNA absent. ----ADDITIONAL INFORMATION---- This test has been modified from the centrifuge separator tender's instructions. Its performance characteristics were determined by [facility] in a manner consistent with CLIA requirements. This test has not been cleared or approved by the U.S. Food and Drug Administration. Bacteria / Raudel Culture, Blood #2 [[id number]] Collected: 03/12/21 0710 Lab Status: Preliminary result Specimen: Blood, Peripheral Draw Updated: 03/14/21 0805 Bacteria/Raudel Culture, Blood No growth to date. MRSA PCR, Nasal [[id number]] Collected: 03/12/21 0623 Lab Status: Final result Specimen: Swab from Nares Updated: 03/12/21 1050 MRSA Screen, Nasal by PCR Negative Hepatitis B Surface Antigen [[id number]] Collected: 03/12/21557 Lab Status: Final result Specimen: Blood, Peripheral Draw Updated: 03/12/21 0744 HBs Antigen, S Nonreactive Comment: Biotin has been identified by the centrifuge separator tender as a potential interfering substance. Higher concentrations of biotin may be found in multivitamins, hair/nail supplements, and workout supplements. If the result does not match clinical observations, repeat testing after patient refrains from the use of supplements for at least 12 hours. Hepatitis B Core IgM Ab [[id number]] Collected: 03/12/21557 Lab Status: Final result Specimen: Blood, Peripheral Draw Updated: 03/13/21 0912 HBc IgM Ab, S Negative Hepatitis A IgM Ab, Serum [[id number]] Collected: 03/12/21557 Lab Status: Final result Specimen: Blood, Peripheral Draw Updated: 03/13/21 09 Hepatitis A IgM Ab, S Negative Comment: Result does not exclude the possibility of exposure to hepatitis A virus. Antibody level during early infection stage may be below the limit of detection of the assay. HCV Ab w/Reflex to HCV PCR, Serum [[id number]] Collected: 03/12/21557 Lab Status: Final result Specimen: Blood, Peripheral Draw Updated: 03/13/21924 HCV Ab, S Negative Comment: Nxuebf-gw-vvtwvv ratio is <1.00. Bacteria / Raudel Culture, Blood #1 [[id number]] Collected: 03/12/2157 Lab Status: Preliminary result Specimen: [...] anticipated at discharge: TBSlick Valerio, Pharm.D., R.Ph. D TRAINING AGENT Silvestre Stevens, R.R.T. - 03/14/2021 9:31 AM [...] extubated to 4 lpm per nasal canula D TRAINING AGENT Adry Reyes - 03/14/2021 4:20 AM CST [...] signed by: Adry Reyes 03/14/21 4:21 AM FIELD TRAINING AGENT D TRAINING AGENT Tariq Marcano M.B.B.S. - 03/13/2021 7:04 PM [...] Procedure Component Value - Date/Time Gram Stain [[id number]] Collected: 03/12/21 1546 Lab Status: Final result Specimen: Peritoneal Fluid Updated: 03/12/21 1822 Gram Stain No organisms seen. White blood cells present. Stain performed on concentrated cytospin preparation. Bacterial Culture, Anaerobic + Susc [[id number]] Collected: 03/12/21 1546 Lab Status: In process Specimen: Peritoneal Fluid Updated: 03/12/21 1548 Bacterial Culture, Aerobic + Susc [[id number]] Collected: 03/12/21 1546 Lab Status: Preliminary result Specimen: Peritoneal Fluid Updated: 03/13/21 1129 Bacterial Culture, Aerobic + Susc No growth to date Bacterial Culture, Aerobic + Susc [[id number]] Collected: 03/12/21 1234 Lab Status: Preliminary result Specimen: Pleural Fluid, Right Updated: 03/13/21 1133 Bacterial Culture, Aerobic + Susc No growth to date Bacterial Culture, Anaerobic + Susc [[id number]] Collected: 03/12/21 1234 Lab Status: In process Specimen: Pleural Fluid, Right Updated: 03/12/21 1308 Gram Stain [[id number]] Collected: 03/12/21 1234 Lab Status: Final result Specimen: Pleural Fluid, Right Updated: 03/12/21 1646 Gram Stain No organisms seen. White blood cells present. Stain performed on concentrated cytospin preparation. Gram Stain [[id number]] Collected: 03/12/21 1234 Lab Status: No result Specimen: Pleural Fluid, Right SARS Coronavirus-2 RNA, V Symptomatic [[id number]] Collected: 03/12/21 1100 Lab Status: Final result [...] was performed using the Aptima SARS-CoV-2 assay ([employer] on the Context app System under emergency use authorization (EUA) by the U.S. Food and Drug Administration. Fact sheets for this EUA assay can be found at the following links: For Healthcare Providers: https://www.fda.gov/media/825803/download For Patients: https://www.fda.gov/media/584744/download Influenza A/B and RSV, PCR, Varies [[id number]] Collected: 03/12/21 1100 Lab Status: Final result Specimen: Varies from Nasopharynx Updated: 03/13/21 1155 Influenza A/B and RSV, Source Swab, Nasopharynx Influenza A, PCR Undetected Comment: Influenza A RNA absent. Influenza B, PCR Undetected Comment: Influenza B RNA absent. Respiratory Syncytial Virus, PCR Undetected Comment: RSV RNA absent. ----ADDITIONAL INFORMATION---- This test has been modified from the centrifuge separator tender's instructions. Its performance characteristics were determined by [facility] in a manner consistent with CLIA requirements. This test has not been cleared or approved by the U.S. Food and Drug Administration. Bacteria / Raudel Culture, Blood #2 [[id number]] Collected: 03/12/21 0710 Lab Status: Preliminary result Specimen: Blood, Peripheral Draw Updated: 03/13/21 0805 Bacteria/Raudel Culture, Blood No growth to date. MRSA PCR, Nasal [[id number]] Collected: 03/12/21 0623 Lab Status: Final result Specimen: Swab from Nares Updated: 03/12/21 1050 MRSA Screen, Nasal by PCR Negative Hepatitis B Surface Antigen [[id number]] Collected: 03/12/21 0558 Lab Status: Final result Specimen: Blood, Peripheral Draw Updated: 03/12/21 0744 HBs Antigen, S Nonreactive Comment: Biotin has been identified by the centrifuge separator tender as a potential interfering substance. Higher concentrations of biotin may be found in multivitamins, hair/nail supplements, and workout supplements. If the result does not match clinical observations, repeat testing after patient refrains from the use of supplements for at least 12 hours. Hepatitis B Core IgM Ab [[id number]] Collected: 03/12/21557 Lab Status: Final result Specimen: Blood, Peripheral Draw Updated: 03/13/21911 HBc IgM Ab, S Negative Hepatitis A IgM Ab, Serum [[id number]] Collected: 03/12/21557 Lab Status: Final result Specimen: Blood, Peripheral Draw Updated: 03/13/21950 Hepatitis A IgM Ab, S Negative Comment: Result does not exclude the possibility of exposure to hepatitis A virus. Antibody level during early infection stage may be below the limit of detection of the assay. HCV Ab w/Reflex to HCV PCR, Serum [[id number]] Collected: 03/12/21557 Lab Status: Final result Specimen: Blood, Peripheral Draw Updated: 03/13/21924 HCV Ab, S Negative Comment: Jalkgy-qk-iiiayw ratio is <1.00. Bacteria / Raudel Culture, Blood #1 [[id number]] Collected: 03/12/21556 Lab Status: Preliminary result Specimen: [...] 32 minutes. I personally discussed with the solar installation helper on-call Tyrell Wright D TRAINING AGENT Criselda Maurer R.R.T., L.R.T. - 03/13/2021 6:09 [...] ART 30 L PH ART 7.46 H D TRAINING AGENT Kerry Naranjo, YARITZA, C.N.P., MSumaS.N. - 03/13/2021 [...] Naranjo APRN, C.N.P., M.S.N. Gastroenterology and Hepatology [facility] D TRAINING AGENT Associated attestation - Leslie Hawk M.D. - 03/13/2021 2:43 PM FIELD TRAINING AGENT This is a supervisory note for gastroenterology [...] 1 gm x1 given 03/12 ?? Per animal keeper head, plan for 5 days of broad spectrums [...] at discharge: TBD Virginie Valerio, Pharm.D., R.Ph. D TRAINING AGENT Sridhar Trevino, R.R.T. - 03/13/2021 6:29 AM CST 2000-Pt seen this evening with 7.5 ETT, secured 22cm @ teeth. Pt on kincaid ventilator SCMV 18/320/+12/40% SpO2: 99% Breath Sounds/Secretions: clear/dim, suctioning out small white/yellow secretions. Pt tolerating ventilator well RT to follow D TRAINING AGENT Virginie Valerio, R.Ph. - 03/12/2021 10:18 AM [...] at discharge: TBD Virginie Valerio, Pharm.D., R.Ph. D TRAINING AGENT Shahida Brito R.RMerlin., L.R.T. - 03/12/2021 10:14 AM CST Pt was intubated with 7.5 ETT placed at 22@ teeth. Tube placement confirmed with bilateral breath sounds and positive ETCO2. She was placed on the ventilator at volume control 20/300/+8/40%. D TRAINING AGENT documented in this encounter H&P Notes Ivan [...] again had likely had a consultation with [facility] and will request records from their [...] from lines of procedures was 60 minutes D TRAINING AGENT documented in this encounter Procedure Notes Barrera [...] slight turn: yes Complications - arterial: none D TRAINING AGENT Barrera To M.D. - 03/12/2021 6:02 PM CSTAssociated Order(s): Invasive Line; Intubation; Thoracentesis; Paracentesis Post-Procedure Diagnose(s): Change Mental Status; Cirrhosis Alcoholic (HCC) Invasive Line Date/Time: 03/12/2021 6:02 PM Performed by: Barrera oT M.D. Authorized by: [...] ETT location: oral VL device: glide scope Buda scope blade size: 3 Adult tube size: [...] right mid-axillary Intercostal space: 3rd Puncture method: nyvk-zmd-vfrira catheter Number of attempts: 1 Drainage characteristics: [...] completed successfully: yes Complications: no apparent complications D TRAINING AGENT documented in this encounter Consult Notes Ciara Stewart L.G.S.W. - 03/21/2021 2:09 PM CST Diagnostic Assessment SUBJECTIVE DEMOGRAPHIC INFORMATION Referral Source: CM/ Referral Referral Reason: Psychosocial assessment,Coping, adjustment and support,Discharge Planning Discharge Planning: (to be determined) Person(s) present during interview: Lobito Rosenthal Primary care clinic and provider: ELSEWHERE, PCP, Patient reported Dr. Roge Hernandez, [facility] to be her primary Doctor Primary Language: Singaporean Blacksmith Helper Services Used: No Legal Information: Voluntary Citizenship: [...] Support System: Significant other,Parent,Family members Spirituality / Tenriism / Culture: , patient was raised Protestant but does not currently attend yarsani. 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 ASSISTIVE DEVICES Patient has the following equipment: Eyeglasses,Contacts Patient anticipates potentially needing the following additional equipment: None Transportation needs: Support from family INTERNATIONAL STUDENT ADVISOR Caregiver Name: Lobito Brunson Caregiver Relationship: Significant other Caregiver FINANCES/INSURANCE Primary insurance: [employer] Secondary insurance: N/A Income Information Does the Patient have any Financial Concerns?: Yes Income Source: Parent/primary caregiver employmen Income/Expense Information: Income meets expenses ADVANCE DIRECTIVES The patient does not currently have an advance directive on file. LEGAL HISTORY Review of the [place] Trial Court Public Access Website ([email or web address].) shows no past or current criminal charges. [...] side effects. Patient works with Dr. Hernandez, [facility], for medication management and support. Thepatient [...] Intact Suicide Risk and Safety Risk Assessment: [place] Suicide Risk Severity Scale (C-SSRS)Lifetime/Recent 03/21/21 1400 [...] active suicidal and homicidal ideation. Lifetime/Recent: The [place] Suicide Severity Rating Scale (C-SSRS) Lifetime/Recent screening [...] remission INTERVENTIONS 1. Inpatient clinical social sciences lecturer completed a diagnostic assessment in response to a chemical dependency order placed by Keerthi Guzman (ordering hospitalist). 2. trail construction worker engaged the patient in Solution Focused Brief Therapy and Motivational Interviewingutilizing scaling questions and process questions and rapport building, empathetic communication, open ended questioning, summarizing and reflection to complete the assessment process. trail construction worker recommended patient continue to follow direction of inpatient medical and mental health team to determine best plan of care for patient. Rule 25 assessment discussed with patient, however based on this conventional underwriter's assessment and patient's disclosure, patient reports [...] chemical health assessment or Rule 25. 5. trail construction worker engaged in safety planning conversation. a. [...] medical and mental health treatment team. 2. trail construction worker will continue to assist as needed [...] 50 minutes total time. Danny Newton 03/21/2021 D TRAINING AGENT Jean Paul M.D., M.P.H. - 03/21/2021 12:07 [...] while sitting in bed, eyes rolled back. MAIL CARRIER called for help and upon RN entering room, noted pts arms tensing and shaking. INSPECTION SUPERVISOR paged right away. VSS. Pt appearing sleepy upon conventional underwriter entering room and then after a [...] Plantar Response: R flexor L flexor Coordination: Uvpkcu-Mlum-Zhywod: Intact b/l ASSESSMENT / PLAN Patient Active [...] the date of the encounter. Time included cjzx-zm-mbvj interview and evaluation, counseling the patient, reviewing records, reviewing relevant diagnostic tests, ordering tests, documenting clinical information in the electronic records and communicating with other p roviders. PATIENT EDUCATION Ready to learn, no apparent learning barriers were identified; learning preferences include listening. Explained diagnosis and treatment plan; patient expressed understanding of the content. D TRAINING AGENT Sivakumar Reyes M.D. 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 We placed a jujedj-ll-bzewa suture around the paracentesis site. [facility] of the ICU team. Procedure: 5 mL of 1% lidocaine were injected around the paracentesis site. A 2 0 Vicryl suture was used to place the a slxeuj-ct-omlgb stitch around the paracentesis site This was [...] clinic and provider: ELSEWHERE, PCP Primary Language: Singaporean Blacksmith Helper Services Used: No Legal Information: Legal Decision [...] so this writercontacted the patient's mother Parris ([phone]) to complete a psychosocial assessment and to [...] Support System: Significant other,Parent,Family members Spirituality / Tenriism / Culture: , patient was raised Protestant but does not currently attend yarsani. 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 ASSISTIVE DEVICES Patient has the following equipment: Eyeglasses,Contacts Patient anticipates potentially needing the following additional equipment: None Transportation needs: Support from family SERVICES REQUESTED None INTERNATIONAL STUDENT ADVISOR Formal and Informal Resources: Caregiver Name: Lobito Brunson Caregiver Relationship: Significant other Caregiver FINANCES/INSURANCE Primary insurance: [employer] Secondary insurance: N/A Income Information Does the [...] Suicide Risk and Safety Risk Assessment: The [place] Suicide Risk Severity Scale (C-SSRS) was unable [...] extended family/friends ASSESSMENT / PLAN IMPRESSION This conventional underwriter completed a psychosocial assessment of the [...] work at this time but thanked this conventional underwriter for the call. INTERVENTIONS 1. Psychosocial assessment completed. 2. Provided supportive services. 3. Provided education regarding the role of social work. 4. Provided education regarding referral resources and options. PLAN 1. Social Work will continue to follow and assist as needed or requested. Anticipated barriers to the transition of care/plan: None Светлана Guillen 03/13/2021 D TRAINING AGENT Sera Morgan P.A.-C. - 03/12/2021 12:50 PM [...] of cirrhosis with ascites who presents from [facility] being found unresponsive and incontinent at home. [...] (A) Bilirubin Moderate (A) pH 6.0 Specific [place] 1.016 Urobilinogen 1.0 MRSA PCR, Nasal Collection [...] plan at this time. Sera Morgan P.A.-C. D TRAINING AGENT Associated attestation - Leslie Hawk M.D. - 03/12/2021 2:37 PM FIELD TRAINING AGENT This is a supervisory note for gastroenterology [...] answered. All belongings sent home with patient. D TRAINING AGENT Bernardo Rosario R.N. - 03/24/2021 4:20 AM [...] of care to be continued by oncomingnurse. D TRAINING AGENT Hope Guerrier R.N. - 03/23/2021 4:32 PM [...] of blood today. Will continue withcurrent POC. D TRAINING AGENT Lisa Stinson R.N. - 03/23/2021 5:50 AM [...] Patient denies pain. Will continue to monitor. D TRAINING AGENT Carol Rodriguez R.N. - 03/22/2021 11:06 PM CST Shift Goals: Clinical Goals for the Shift: Patient will remain free from falls and get adequate rest Identify possible barriers to meeting goals/advancing plan of care: None End of Shift Summary: Patient slept intermittently throughout the shift and took a couple walks in the halls with the MAIL CARRIER today. Pt reported having no abdominal pain [...] Emergency Response Team call for Anxiety,Agitation, at [facility]. I have reviewed the medical records, spoke with the patient's nurse, and met with the patient in person. Follow-Up Assessment: Batching Operator met with patient assigned nurse. Patient [...] free to contact the MARILUZ RN at [phone], or in an emergent situation by activating the MARILUZ team through the hospital bookkeeping machine operator by dialing [phone]. D TRAINING AGENT Nola Frederick - 03/22/2021 4:49 AM CST [...] melatonin and Zyprexa not given until 0100. D TRAINING AGENT Yajaira Faulkner RSumaNSuma - 03/21/2021 2:40 PM [...] plan for eeg today Interventions: remove from operations clerk list Recommendations for primary RN: call for [...] primary nurse: Encouraged primary RN to call INSPECTION SUPERVISOR with questions, concerns, or if patient condition [...] RN: Continue to monitor mental status, call INSPECTION SUPERVISOR with any concerns Rapid RN will continue to monitor for: Will monitor for seizure like activity Patient Disposition: has improved Rapid RN following prior to transfer to higher level of care, if applicable: Offered debrief to primary nurse: Encouraged primary RN to call INSPECTION SUPERVISOR with questions, concerns, or if patient condition [...] labs. Will continue with plan of care. D TRAINING AGENT Priscilla Morelos R.N. - 03/20/2021 11:03 PM [...] while sitting in bed, eyes rolled back. MAIL CARRIER called for help and upon RN entering room,noted pts arms tensing and shaking. INSPECTION SUPERVISOR paged right away. VSS. Pt appearing sleepy upon conventional underwriter entering room and then after a [...] HS, had 4bms today. Continue to monitor. D TRAINING AGENT Tia Abbasi R.N. - 03/20/2021 10:38 PM CST MARILUZ Follow up: This is a follow up to the Behavioral Emergency Response Team call for Anxiety,Agitation, at [facility]. I have reviewed the medical records, spoke [...] free to contact the MARILUZ RN at [phone], or in an emergent situation by activating the MARILUZ team through the hospital bookkeeping machine operator by dialing 201. D TRAINING AGENT Grazyna Barroso RSumaN. - 03/20/2021 2:34 PM [...] Vitals remain stable, continue plan of care. D TRAINING AGENT Cathie Rae RSumaN. - 03/20/2021 1:34 PM CST [facility] Follow up: This is a follow up to the Behavioral Emergency Response Team call for Anxiety,Agitation, at [facility]. I have reviewed the medical records, spoke [...] free to contact the MARILUZ RN at [phone], or in an emergent situation by activating the MARILUZ team through the hospital bookkeeping machine operator by dialing 201. D TRAINING AGENT Tia Abbasi R.N. - 03/20/2021 6:49 AM CST MARIL[facility]Z Follow up: This is a follow up to the Behavioral Emergency Response Team call for Anxiety,Agitation, at [facility]. I have reviewed the medical records, spoke with the patient's nurse, and met with the patient in person. Follow-Up Assessment: No MARILUZ calls this shift. Will continue to follow. Follow-Up: ?? The MARILUZ RN will follow up during their next rounds on the day shift. If there are any questions or concerns, please feel free to contact the MARILUZ RN at [phone], or in an emergent situation by activating the MARILUZ team through the hospital bookkeeping machine operator by dialing 201. D TRAINING AGENT Juan Palacios R.N. - 03/20/2021 4:14 AM [...] Emergency Response Team call for Anxiety,Agitation, at [facility]. I have reviewed the medical records, spoke with the patient's nurse, and met with the patient in person. Follow-Up Assessment: No requests for mariluz interventions today. Follow-Up: ?? The MARILUZ RN will follow up during their rounds on the evening shift. If there are any questions or concerns, please feel free to contact the MARILUZ RN at [phone], or in an emergent situation by activating the MARILUZ team through the hospital bookkeeping machine operator by dialing 201. Grazyna Salazar R.N. [...] by: Virginie Stahl R.N. 03/19/21 7:38 AM FIELD TRAINING AGENT D TRAINING AGENT Criselda He R.N. - 03/18/2021 6:56 PM [...] a 30 y.o. female admitted to the [facility] for Change Mental Status Batching Operator called to pt room due to increased anxious behavior. Pt had refused her lactulose several times recently. Batching Operator observed while pt received the a dose this afternoon. Her speech was rapid and tangental. Pt became visibly anxious during and after taking the lactulose. Pt began to slur her words and stutter. Pt's pupils were equal, round, and reacted briskly. Motor function/sensation assessment was normal. After other staff left the room conventional underwriter talked with pt for a while [...] was the sister or cousin of a MAIL CARRIER. Batching Operator spent time validating pt's feelings and when she was much calmer conventional underwriter cleared from the situation. Individual Assignment [...] free to contact the MARILUZ RN at [phone], or in an emergent situation by activating the MARILUZ team through the hospital bookkeeping machine operator by dialing 201. D TRAINING AGENT Virginie Stahl R.N. - 03/18/2021 4:10 AM [...] by: Virginie Stahl R.N. 03/18/21 6:07 AM FIELD TRAINING AGENT D TRAINING AGENT Criselda He R.N. - 03/17/2021 5:44 PM [...] at 1445. Will continue plan of care. D TRAINING AGENT Nola Frederick - 03/17/2021 5:37 AM CST [...] not call for assistance at any point. D TRAINING AGENT Hilda Bower R.N. - 03/16/2021 8:04 PM [...] art line, cont to have 2 PIVs. D TRAINING AGENT Ricardo Rosado R.N. - 03/16/2021 4:28 AM [...] grateful. Replaced magnesium, calcium, potassium and phos. D TRAINING AGENT Hilda Bower R.N. - 03/15/2021 6:00 PM [...] Has a right IJ and 2 PIVs. D TRAINING AGENT Ricardo Rosado R.N. - 03/15/2021 6:34 AM [...] Potassium, Magnesium and phos replaced this shift. D TRAINING AGENT Hilda Bower R.N. - 03/14/2021 6:45 PM [...] currently on 25 mcg/kg/min, 0.5 mcg/kg/hr precedex. D TRAINING AGENT Diya Weiss R.N. - 03/13/2021 5:05 PM [...] titrated down with MAP goal (>65 per Loan Originator) achieved. Patient appear to have improving mental [...] by: Baldemar Evangelista R.N. 03/13/21 6:36 AM FIELD TRAINING AGENT D TRAINING AGENT Diya Weiss R.N. - 03/12/2021 3:00 PM [...] pelvis today. No family visiting this shift. Loan Originator updated patient's mother via phone call. D TRAINING AGENT Criselda Valentin R.N. - 03/12/2021 6:45 AM CST Pt direct admit from [place] to room 3411. Pt agitated, moaning, not [...] him to bring her to the ED. D TRAINING AGENT documented in this encounter Miscellaneous Notes Hospital [...] of FFP yesterday. She was transferred to [facility] 03/16. -- continue Lactulose titrate down [...] the course abx for community acquired pneumonia D TRAINING AGENT documented in this encounter Plan of Treatment Upcoming Encounters Date Type Specialty Care Team Description Telemedicine Transplant 2 Appointment Radiology Matthew Jerome 2 Y, VikBLilian Bedolla [address] [place] [phone] Appointment Gastroenterology and Adrianne, 2 Hepatology Yue Burciaga M.D. [address] [place] [address] Virtual Visit Transplant Matthew Jerome 2 Tyrell Rodriguez M.D. [address] [place] [phone] Office Visit Gastroenterology and Matthew Jerome 2 Hepatology Tyrell Rodriguez M.D. [address] [place] [phone] Appointment Radiology Matthew Jerome 2 Tyrell Rodriguez M.D. [address] [place] [phone] Hospital Gastroenterology and [place] Matthew Cirrhos is Alcoholic (HCC) 2 Encounter Hepatology Tyrell Rodriguez M.D. [address] [place] [phone] Anesthesia Event Gastroenterology and Rl, 2 Hepatology Ervin Burgos M.D. [address] [place] [phone] Surgery Gastroenterology and Matthew Jerome ESOPHAG OGASTRODUODENOSCOPY 2 Hepatology Joshua RodriguezBSumaBLilian Bedolla [address] [place] [phone] Pending Results Name Type Priority Associated Diagnoses Date/Ti me Prepare Red Blood Cells, 1 Blood Bank Routine 1 05/12/2020 12:59 PM Units FIELD TRAINING AGENT Prepare Red Blood Cells, 1 Blood Bank Routine 1 05/12/2020 12:59 PM Units FIELD TRAINING AGENT Prepare Red Blood Cells, 1 Blood Bank Routine 1 05/12/2020 12:59 PM Units FIELD TRAINING AGENT Prepare Fresh Frozen Blood Bank Routine 12:06 PM Plasma : 2 Units FIELD TRAINING AGENT Transfuse Fresh Frozen Blood Bank Routine 03/15 3:52 PM Plasma :Bleeding with FIELD TRAINING AGENT altered coagulation; 180 mL/hr, 2 Units Prepare Red Blood Cells, 1 Blood Bank Routine 1 05/12/2020 12:59 PM Units FIELD TRAINING AGENT Prepare Fresh Frozen Blood Bank Routine 2:05 AM Plasma : 1 Units FIELD TRAINING AGENT Prepare Pooled Blood Bank Routine 03/16/2021 2: 05 AM Cryoprecipitate FIELD TRAINING AGENT Prepare Red Blood Cells, 1 Blood Bank STAT 1 05/16/2020 5:44 AM Units FIELD TRAINING AGENT Prepare Fresh Frozen Blood Bank STAT 5:44 AM Plasma : 2 Units FIELD TRAINING AGENT Prepare Red Blood Cells, 2 Blood Bank STAT 1 05/16/2020 5:44 AM Units FIELD TRAINING AGENT Prepare Red Blood Cells, 1 Blood Bank STAT 1 05/16/2020 5:44 AM Units FIELD TRAINING AGENT Prepare Fresh Frozen Blood Bank STAT 5:44 AM Plasma : 1 Units FIELD TRAINING AGENT Patient Status Lab Routine 03/20/2021 7: 40 AM FIELD TRAINING AGENT Prepare Red Blood Cells, 1 Blood Bank Routine 1 05/23/2020 1:12 PM Units FIELD TRAINING AGENT Scheduled Procedures Name Priority Associated Diagnoses Date/Time ESOPHAGOGASTRODUODENOSCOPY Cirrhosis Alc oholic (HCC) 03/20/2022 8:45 AM FIELD TRAINING AGENT Hypertension Portal (HCC) Scheduled Referrals Name Type Priority Associated Order Schedule Diagnoses Gastroenterology and Outpatient Routine Expecte d: Hepatology office visit Referral 03/03 (clinic) (Approximate), Expires: 03/15/2024 documented as of this encounter Procedures Procedure Name Priority Date/Time Associated Comments Diagnosis VITAMIN A AND VITAMIN Routine 03/24/2021 6:15 Res ults for E, S AM FIELD TRAINING AGENT this procedure are in the results section. ZINC, S Routine 03/24/2021 6:15 Results for AM FIELD TRAINING AGENT this procedure are in the results section. PROTHROMBIN TIME (PT), Routine 03/24/2021 6:15 Re sults for P AM FIELD TRAINING AGENT this procedure are in the results section. CBC WITHOUT Routine 03/24/2021 6:15 Results for DIFFERENTIAL, B AM FIELD TRAINING AGENT this procedu re are in the results section. COMPREHENSIVE Routine 03/24/2021 6:15 Results for METABOLIC PANEL, S/P AM FIELD TRAINING AGENT this pr ocedure are in the results section. TRANSFUSE RED BLOOD Routine 03/23/2021 3:21 CELLS PM FIELD TRAINING AGENT TESTING LOCATION Routine 03/23/2021 1:12 Results for PM FIELD TRAINING AGENT this procedure are in the results section. PREPARE RED BLOOD Routine 03/23/2021 1:12 CELLS PM FIELD TRAINING AGENT TYPE AND SCREEN Routine 03/23/2021 1:12 Results f or PM FIELD TRAINING AGENT this procedure are in the results section. ADULT OXYGEN THERAPY Routine 03/23/2021 8:00 AM FIELD TRAINING AGENT PULSE OXIMETRY, Routine 03/23/2021 8:00 CONTINUOUS AM FIELD TRAINING AGENT PROTHROMBIN TIME (PT), Routine 03/23/2021 6:43 Re sults for P AM FIELD TRAINING AGENT this procedure are in the results section. CBC WITHOUT Routine 03/23/2021 6:43 Results for DIFFERENTIAL, B AM FIELD TRAINING AGENT this procedu re are in the results section. PHOSPHORUS Routine 03/23/2021 6:43 Results for (INORGANIC), S AM FIELD TRAINING AGENT this procedur e are in the results section. MAGNESIUM, S Routine 03/23/2021 6:43 Results for AM FIELD TRAINING AGENT this procedure are in the results section. COMPREHENSIVE Routine 03/23/2021 6:43 Results for METABOLIC PANEL, S/P AM FIELD TRAINING AGENT this pr ocedure are in the results section. ADULT OXYGEN THERAPY Routine 03/22/2021 8:00 PM FIELD TRAINING AGENT PULSE OXIMETRY, Routine 03/22/2021 8:00 CONTINUOUS PM FIELD TRAINING AGENT LACTATE, B Routine 03/22/2021 8:38 Results for AM FIELD TRAINING AGENT this procedure are in the results section. PROTHROMBIN TIME (PT), Routine 03/22/2021 8:38 Re sults for P AM FIELD TRAINING AGENT this procedure are in the results section. CBC WITHOUT Routine 03/22/2021 8:38 Results for DIFFERENTIAL, B AM FIELD TRAINING AGENT this procedu re are in the results section. AMMONIA Routine 03/22/2021 8:38 Results for AM FIELD TRAINING AGENT this procedure are in the results section. COMPREHENSIVE Routine 03/22/2021 8:38 Results for METABOLIC PANEL, S/P AM FIELD TRAINING AGENT this pr ocedure are in the results section. PHOSPHORUS Routine 03/22/2021 8:33 Results for (INORGANIC), S AM FIELD TRAINING AGENT this procedur e are in the results section. MAGNESIUM, S Routine 03/22/2021 8:33 Results for AM FIELD TRAINING AGENT this procedure are in the results section. ADULT OXYGEN THERAPY Routine 03/22/2021 8:00 AM FIELD TRAINING AGENT PULSE OXIMETRY, Routine 03/22/2021 8:00 CONTINUOUS AM FIELD TRAINING AGENT ADULT OXYGEN THERAPY Routine 03/21/2021 8:01 PM FIELD TRAINING AGENT PULSE OXIMETRY, Routine 03/21/2021 8:01 CONTINUOUS PM FIELD TRAINING AGENT EEG ROUTINE - AWAKE Routine 03/21/2021 4:43 Resul ts for AND SLEEP PM FIELD TRAINING AGENT this procedure are in the results section. CT ABDOMEN PELVIS RAD - Routine 03/21/2021 Results f or WITHOUT IV CONTRAST (most inpatients 12:42 PM FIELD TRAINING AGENT this procedure and all are in the outpatients) results section. CT HEAD WITHOUT IV RAD - Routine 03/21/2021 Results for CONTRAST (most inpatients 12:42 PM FIELD TRAINING AGENT this proced ure and all are in the outpatients) results section. ECG Routine 03/21/2021 Results for 10:06 AM FIELD TRAINING AGENT this procedure are in the results section. ADULT OXYGEN THERAPY Routine 03/21/2021 8:01 AM FIELD TRAINING AGENT PULSE OXIMETRY, Routine 03/21/2021 8:01 CONTINUOUS AM FIELD TRAINING AGENT COMPREHENSIVE Routine 03/21/2021 5:44 Results for METABOLIC PANEL, S/P AM FIELD TRAINING AGENT this pr ocedure are in the results section. LACTATE, B Routine 03/21/2021 5:43 Results for AM FIELD TRAINING AGENT this procedure are in the results section. PROTHROMBIN TIME (PT), Routine 03/21/2021 5:43 Re sults for P AM FIELD TRAINING AGENT this procedure are in the results section. CBC WITHOUT Routine 03/21/2021 5:43 Results for DIFFERENTIAL, B AM FIELD TRAINING AGENT this procedu re are in the results section. LACTATE, B Timed 03/20/2021 Results for 10:32 PM FIELD TRAINING AGENT this procedure are in the results section. CBC WITH DIFFERENTIAL, Timed 03/20/2021 Resul ts for B 10:32 PM FIELD TRAINING AGENT this procedure are in the results section. CREATINE KINASE (CK), Timed 03/20/2021 Result s for S 10:32 PM FIELD TRAINING AGENT this procedure are in the results section. AMMONIA Timed 03/20/2021 Results for 10:32 PM FIELD TRAINING AGENT this procedure are in the results section. COMPREHENSIVE Timed 03/20/2021 Results for METABOLIC PANEL, S/P 10:32 PM FIELD TRAINING AGENT this pr ocedure are in the results section. GLUCOSE POCT, B Routine 03/20/2021 9:03 Results f or PM FIELD TRAINING AGENT this procedure are in the results section. ADULT OXYGEN THERAPY Routine 03/20/2021 8:01 PM FIELD TRAINING AGENT PULSE OXIMETRY, Routine 03/20/2021 8:01 CONTINUOUS PM FIELD TRAINING AGENT ADULT OXYGEN THERAPY Routine 03/20/2021 8:01 AM FIELD TRAINING AGENT PULSE OXIMETRY, Routine 03/20/2021 8:01 CONTINUOUS AM FIELD TRAINING AGENT LACTATE, B Routine 03/20/2021 7:40 Results for AM FIELD TRAINING AGENT this procedure are in the results section. PH BLOOD GAS Routine 03/20/2021 7:40 Results for AM FIELD TRAINING AGENT this procedure are in the results section. PROTHROMBIN TIME (PT), Routine 03/20/2021 7:40 Re sults for P AM FIELD TRAINING AGENT this procedure are in the results section. CBC WITHOUT Routine 03/20/2021 7:40 Results for DIFFERENTIAL, B AM FIELD TRAINING AGENT this procedu re are in the results section. PHOSPHORUS Routine 03/20/2021 7:40 Results for (INORGANIC), S AM FIELD TRAINING AGENT this procedur e are in the results section. MAGNESIUM, S Routine 03/20/2021 7:40 Results for AM FIELD TRAINING AGENT this procedure are in the results section. VENOUS BLOOD GAS Routine 03/20/2021 7:40 Results for W/COOX, B AM FIELD TRAINING AGENT this procedure are in the results section. CALCIUM, IONIZED, S/B Routine 03/20/2021 7:40 Res ults for AM FIELD TRAINING AGENT this procedure are in the results section. COMPREHENSIVE Routine 03/20/2021 7:40 Results for METABOLIC PANEL, S/P AM FIELD TRAINING AGENT this pr ocedure are in the results section. ADULT OXYGEN THERAPY Routine 03/19/2021 8:01 PM FIELD TRAINING AGENT PULSE OXIMETRY, Routine 03/19/2021 8:01 CONTINUOUS PM FIELD TRAINING AGENT TRANSFUSE FRESH FROZEN Routine 03/19/2021 5:08 PLASMA PM FIELD TRAINING AGENT PH BLOOD GAS Routine 03/19/2021 3:04 Results for PM FIELD TRAINING AGENT this procedure are in the results section. 25-HYDROXYVITAMIN D2 Routine 03/19/2021 3:04 Resu lts for AND D3, S PM FIELD TRAINING AGENT this procedure are in the results section. POTASSIUM, S/P Timed 03/19/2021 3:04 Results fo r PM FIELD TRAINING AGENT this procedure are in the results section. PARATHYROID HORMONE Routine 03/19/2021 3:04 Resul ts for (PTH), S PM FIELD TRAINING AGENT this procedure are in the results section. CALCIUM, IONIZED, S/B Routine 03/19/2021 3:04 Res ults for PM FIELD TRAINING AGENT this procedure are in the results section. TRANSFUSE RED BLOOD Routine 03/19/2021 CELLS 12:49 PM FIELD TRAINING AGENT (TTE) 2D ECHO DOPPLER Routine 03/19/2021 Result s for COLOR AND CONTRAST 12:39 PM FIELD TRAINING AGENT this proc edure are in the results section. ADULT OXYGEN THERAPY Routine 03/19/2021 8:01 AM FIELD TRAINING AGENT PULSE OXIMETRY, Routine 03/19/2021 8:01 CONTINUOUS AM FIELD TRAINING AGENT PROTHROMBIN TIME (PT), Routine 03/19/2021 7:39 Re sults for P AM FIELD TRAINING AGENT this procedure are in the results section. CBC WITH DIFFERENTIAL, Routine 03/19/2021 7:39 Re sults for B AM FIELD TRAINING AGENT this procedure are in the results section. PHOSPHORUS Routine 03/19/2021 7:39 Results for (INORGANIC), S AM FIELD TRAINING AGENT this procedur e are in the results section. MAGNESIUM, S Routine 03/19/2021 7:39 Results for AM FIELD TRAINING AGENT this procedure are in the results section. AMMONIA Routine 03/19/2021 7:39 Results for AM FIELD TRAINING AGENT this procedure are in the results section. COMPREHENSIVE Routine 03/19/2021 7:39 Results for METABOLIC PANEL, S/P AM FIELD TRAINING AGENT this pr ocedure are in the results section. BILIRUBIN DIRECT, S/P Routine 03/19/2021 7:38 Res ults for AM FIELD TRAINING AGENT this procedure are in the results section. ECG Routine 03/19/2021 6:44 Results for AM FIELD TRAINING AGENT this procedure are in the results section. ADULT OXYGEN THERAPY Routine 03/18/2021 8:01 PM FIELD TRAINING AGENT PULSE OXIMETRY, Routine 03/18/2021 8:01 CONTINUOUS PM FIELD TRAINING AGENT HEMOGLOBIN, B Routine 03/18/2021 7:00 Results for PM FIELD TRAINING AGENT this procedure are in the results section. AMMONIA Routine 03/18/2021 6:59 Results for PM FIELD TRAINING AGENT this procedure are in the results section. PROTHROMBIN TIME (PT), Routine 03/18/2021 8:35 Re sults for P AM FIELD TRAINING AGENT this procedure are in the results section. CBC WITH DIFFERENTIAL, Routine 03/18/2021 8:35 Re sults for B AM FIELD TRAINING AGENT this procedure are in the results section. COMPREHENSIVE Routine 03/18/2021 8:35 Results for METABOLIC PANEL, S/P AM FIELD TRAINING AGENT this pr ocedure are in the results section. ADULT OXYGEN THERAPY Routine 03/18/2021 8:02 AM FIELD TRAINING AGENT PULSE OXIMETRY, Routine 03/18/2021 8:02 CONTINUOUS AM FIELD TRAINING AGENT ADULT OXYGEN THERAPY Routine 03/17/2021 8:01 PM FIELD TRAINING AGENT PULSE OXIMETRY, Routine 03/17/2021 8:01 CONTINUOUS PM FIELD TRAINING AGENT ADULT OXYGEN THERAPY Routine 03/17/2021 8:01 AM FIELD TRAINING AGENT PULSE OXIMETRY, Routine 03/17/2021 8:01 CONTINUOUS AM FIELD TRAINING AGENT CBC WITH DIFFERENTIAL, Routine 03/17/2021 6:35 Re sults for B AM FIELD TRAINING AGENT this procedure are in the results section. MAGNESIUM, S Routine 03/17/2021 6:35 Results for AM FIELD TRAINING AGENT this procedure are in the results section. BASIC METABOLIC PANEL, Routine 03/17/2021 6:35 Re sults for S/P AM FIELD TRAINING AGENT this procedure are in the results section. ADULT OXYGEN THERAPY Routine 03/16/2021 8:00 PM FIELD TRAINING AGENT PULSE OXIMETRY, Routine 03/16/2021 8:00 CONTINUOUS PM FIELD TRAINING AGENT HEMOGLOBIN, B Timed 03/16/2021 4:14 Results for PM FIELD TRAINING AGENT this procedure are in the results section. HEMATOCRIT, B Timed 03/16/2021 4:14 Results for PM FIELD TRAINING AGENT this procedure are in the results section. HEMOGLOBIN, B STAT 03/16/2021 Results for 12:58 PM FIELD TRAINING AGENT this procedure are in the results section. HEMATOCRIT, B STAT 03/16/2021 Results for 12:58 PM FIELD TRAINING AGENT this procedure are in the results section. TRANSFUSE RED BLOOD Routine 03/16/2021 CELLS 11:13 AM FIELD TRAINING AGENT TRANSFUSE RED BLOOD Routine 03/16/2021 CELLS 10:32 AM FIELD TRAINING AGENT TRANSFUSE FRESH FROZEN Routine 03/16/2021 9:58 PLASMA AM FIELD TRAINING AGENT TRANSFUSE FRESH FROZEN Routine 03/16/2021 9:20 PLASMA AM FIELD TRAINING AGENT ADULT OXYGEN THERAPY Routine 03/16/2021 8:00 AM FIELD TRAINING AGENT PULSE OXIMETRY, Routine 03/16/2021 8:00 CONTINUOUS AM FIELD TRAINING AGENT TRANSFUSE RED BLOOD Routine 03/16/2021 7:35 CELLS AM FIELD TRAINING AGENT ACTIVATED PARTIAL STAT 03/16/2021 7:32 Results for THROMBOPLASTIN TIME AM FIELD TRAINING AGENT this pro cedure (APTT), P are in the results section. PROTHROMBIN TIME (PT), STAT 03/16/2021 7:32 Re sults for P AM FIELD TRAINING AGENT this procedure are in the results section. FIBRINOGEN, P STAT 03/16/2021 7:32 Results for AM FIELD TRAINING AGENT this procedure are in the results section. HEMOGLOBIN, B STAT 03/16/2021 7:31 Results for AM FIELD TRAINING AGENT this procedure are in the results section. TESTING LOCATION STAT 03/16/2021 5:44 Results for AM FIELD TRAINING AGENT this procedure are in the results section. PREPARE FRESH FROZEN STAT 03/16/2021 5:44 PLASMA AM FIELD TRAINING AGENT PREPARE FRESH FROZEN STAT 03/16/2021 5:44 PLASMA AM FIELD TRAINING AGENT PREPARE RED BLOOD STAT 03/16/2021 5:44 CELLS AM FIELD TRAINING AGENT PREPARE RED BLOOD STAT 03/16/2021 5:44 CELLS AM FIELD TRAINING AGENT PREPARE RED BLOOD STAT 03/16/2021 5:44 CELLS AM FIELD TRAINING AGENT TYPE AND SCREEN STAT 03/16/2021 5:44 Results f or AM FIELD TRAINING AGENT this procedure are in the results section. GLUCOSE POCT, B Routine 03/16/2021 5:43 Results f or AM FIELD TRAINING AGENT this procedure are in the results section. PH BLOOD GAS Routine 03/16/2021 4:57 Results for AM FIELD TRAINING AGENT this procedure are in the results section. CALCIUM, IONIZED, S/B Routine 03/16/2021 4:57 Res ults for AM FIELD TRAINING AGENT this procedure are in the results section. CBC WITHOUT Timed 03/16/2021 4:21 Results for DIFFERENTIAL, B AM FIELD TRAINING AGENT this procedu re are in the results section. PHOSPHORUS Timed 03/16/2021 4:21 Results for (INORGANIC), S AM FIELD TRAINING AGENT this procedur e are in the results section. MAGNESIUM, S Timed 03/16/2021 4:21 Results for AM FIELD TRAINING AGENT this procedure are in the results section. COMPREHENSIVE Timed 03/16/2021 4:21 Results for METABOLIC PANEL, S/P AM FIELD TRAINING AGENT this pr ocedure are in the results section. TRANSFUSE FRESH FROZEN Routine 03/16/2021 3:30 PLASMA AM FIELD TRAINING AGENT TRANSFUSE Routine 03/16/2021 3:18 CRYOPRECIPITATE AM FIELD TRAINING AGENT TRANSFUSE Routine 03/16/2021 2:42 CRYOPRECIPITATE AM FIELD TRAINING AGENT CT ABDOMEN PELVIS WITH RAD - Routine 03/16/2021 2:36 R esults for IV CONTRAST (most inpatients AM FIELD TRAINING AGENT this proced ure and all are in the outpatients) results section. TEST, POCT, Routine 03/16/2021 2:11 Res ults for U (LAB) AM FIELD TRAINING AGENT this procedure are in the results section. PREPARE FRESH FROZEN Routine 03/16/2021 2:05 PLASMA AM FIELD TRAINING AGENT PREPARE Routine 03/16/2021 2:05 CRYOPRECIPITATE AM FIELD TRAINING AGENT ACTIVATED PARTIAL STAT 03/16/2021 1:11 Results for THROMBOPLASTIN TIME AM FIELD TRAINING AGENT this pro cedure (APTT), P are in the results section. PROTHROMBIN TIME (PT), STAT 03/16/2021 1:11 Re sults for P AM FIELD TRAINING AGENT this procedure are in the results section. FIBRINOGEN, P STAT 03/16/2021 1:11 Results for AM FIELD TRAINING AGENT this procedure are in the results section. HEMOGLOBIN, B Timed 03/16/2021 Results for 12:08 AM FIELD TRAINING AGENT this procedure are in the results section. POTASSIUM, S/P Routine 03/16/2021 Results for 12:08 AM FIELD TRAINING AGENT this procedure are in the results section. GLUCOSE POCT, B Routine 03/15/2021 Results for 11:33 PM FIELD TRAINING AGENT this procedure are in the results section. TRANSFUSE RED BLOOD Routine 03/15/2021 9:33 CELLS PM FIELD TRAINING AGENT HEMOGLOBIN, B Timed 03/15/2021 8:11 Results for PM FIELD TRAINING AGENT this procedure are in the results section. ADULT OXYGEN THERAPY Routine 03/15/2021 8:01 PM FIELD TRAINING AGENT PULSE OXIMETRY, Routine 03/15/2021 8:01 CONTINUOUS PM FIELD TRAINING AGENT HEMOGLOBIN, B Timed 03/15/2021 4:52 Results for PM FIELD TRAINING AGENT this procedure are in the results section. HEMATOCRIT, B Timed 03/15/2021 4:52 Results for PM FIELD TRAINING AGENT this procedure are in the results section. TRANSFUSE FRESH FROZEN Routine 03/15/2021 3:52 PLASMA PM FIELD TRAINING AGENT HEMOGLOBIN, B Timed 03/15/2021 2:29 Results for PM FIELD TRAINING AGENT this procedure are in the results section. HEMATOCRIT, B Timed 03/15/2021 2:29 Results for PM FIELD TRAINING AGENT this procedure are in the results section. PHOSPHORUS Routine 03/15/2021 2:29 Results for (INORGANIC), S PM FIELD TRAINING AGENT this procedur e are in the results section. MAGNESIUM, S Routine 03/15/2021 2:29 Results for PM FIELD TRAINING AGENT this procedure are in the results section. BASIC METABOLIC PANEL, Timed 03/15/2021 2:29 Re sults for S/P PM FIELD TRAINING AGENT this procedure are in the results section. RESPIRATORY ASSESS AND Routine 03/15/2021 2:00 TREAT PM FIELD TRAINING AGENT TRANSFUSE FRESH FROZEN Routine 03/15/2021 1:47 PLASMA PM FIELD TRAINING AGENT PREPARE FRESH FROZEN Routine 03/15/2021 PLASMA 12:06 PM FIELD TRAINING AGENT GLUCOSE POCT, B Routine 03/15/2021 Results for 11:57 AM FIELD TRAINING AGENT this procedure are in the results section. TRANSFUSE RED BLOOD Routine 03/15/2021 CELLS 11:00 AM FIELD TRAINING AGENT ADULT OXYGEN THERAPY Routine 03/15/2021 8:01 AM FIELD TRAINING AGENT PULSE OXIMETRY, Routine 03/15/2021 8:01 CONTINUOUS AM FIELD TRAINING AGENT GLUCOSE POCT, B Routine 03/15/2021 6:14 Results f or AM FIELD TRAINING AGENT this procedure are in the results section. PROTHROMBIN TIME (PT), Routine 03/15/2021 4:18 Re sults for P AM FIELD TRAINING AGENT this procedure are in the results section. CBC WITHOUT Routine 03/15/2021 4:18 Results for DIFFERENTIAL, B AM FIELD TRAINING AGENT this procedu re are in the results section. PHOSPHORUS Routine 03/15/2021 4:18 Results for (INORGANIC), S AM FIELD TRAINING AGENT this procedur e are in the results section. MAGNESIUM, S Routine 03/15/2021 4:18 Results for AM FIELD TRAINING AGENT this procedure are in the results section. COMPREHENSIVE Routine 03/15/2021 4:18 Results for METABOLIC PANEL, S/P AM FIELD TRAINING AGENT this pr ocedure are in the results section. GLUCOSE POCT, B Routine 03/14/2021 Results for 11:43 PM FIELD TRAINING AGENT this procedure are in the results section. ADULT OXYGEN THERAPY Routine 03/14/2021 8:01 PM FIELD TRAINING AGENT PULSE OXIMETRY, Routine 03/14/2021 8:01 CONTINUOUS PM FIELD TRAINING AGENT GLUCOSE POCT, B Routine 03/14/2021 6:25 Results f or PM FIELD TRAINING AGENT this procedure are in the results section. RESPIRATORY ASSESS AND Routine 03/14/2021 2:00 TREAT PM FIELD TRAINING AGENT GLUCOSE POCT, B Routine 03/14/2021 Results for 11:32 AM FIELD TRAINING AGENT this procedure are in the results section. PATIENT STATUS STAT 03/14/2021 Results for 11:00 AM FIELD TRAINING AGENT this procedure are in the results section. ABG W/COOX STAT 03/14/2021 Results for 11:00 AM FIELD TRAINING AGENT this procedure are in the results section. PROTHROMBIN TIME (PT), Routine 03/14/2021 9:22 Re sults for P AM FIELD TRAINING AGENT this procedure are in the results section. ADULT OXYGEN THERAPY Routine 03/14/2021 8:01 AM FIELD TRAINING AGENT PULSE OXIMETRY, Routine 03/14/2021 8:01 CONTINUOUS AM FIELD TRAINING AGENT GLUCOSE POCT, B Routine 03/14/2021 6:28 Results f or AM FIELD TRAINING AGENT this procedure are in the results section. PATIENT STATUS Routine 03/14/2021 5:41 Results fo r AM FIELD TRAINING AGENT this procedure are in the results section. PH BLOOD GAS Routine 03/14/2021 5:41 Results for AM FIELD TRAINING AGENT this procedure are in the results section. ABG W/COOX Routine 03/14/2021 5:41 Results for AM FIELD TRAINING AGENT this procedure are in the results section. CBC WITHOUT Routine 03/14/2021 5:41 Results for DIFFERENTIAL, B AM FIELD TRAINING AGENT this procedu re are in the results section. PHOSPHORUS Routine 03/14/2021 5:41 Results for (INORGANIC), S AM FIELD TRAINING AGENT this procedur e are in the results section. MAGNESIUM, S Routine 03/14/2021 5:41 Results for AM FIELD TRAINING AGENT this procedure are in the results section. CALCIUM, IONIZED, S/B Routine 03/14/2021 5:41 Res ults for AM FIELD TRAINING AGENT this procedure are in the results section. BASIC METABOLIC PANEL, Routine 03/14/2021 5:41 Re sults for S/P AM FIELD TRAINING AGENT this procedure are in the results section. HEPATIC FUNCTION Routine 03/14/2021 5:40 Results for PANEL, S AM FIELD TRAINING AGENT this procedure are in the results section. DX CHEST PORTABLE 1 RAD - Routine 03/14/2021 4:33 Resu lts for VIEW (most inpatients AM FIELD TRAINING AGENT this proced ure and all are in the outpatients) results section. GLUCOSE POCT, B Routine 03/14/2021 Results for 12:06 AM FIELD TRAINING AGENT this procedure are in the results section. ADULT OXYGEN THERAPY Routine 03/13/2021 8:01 PM FIELD TRAINING AGENT PULSE OXIMETRY, Routine 03/13/2021 8:01 CONTINUOUS PM FIELD TRAINING AGENT HEMOGLOBIN, B Routine 03/13/2021 6:29 Results for PM FIELD TRAINING AGENT this procedure are in the results section. GLUCOSE POCT, B Routine 03/13/2021 6:16 Results f or PM FIELD TRAINING AGENT this procedure are in the results section. HEMOGLOBIN, B Routine 03/13/2021 4:28 Results for PM FIELD TRAINING AGENT this procedure are in the results section. MECHANICAL VENTILATOR Routine 03/13/2021 4:00 PM FIELD TRAINING AGENT RESPIRATORY ASSESS AND Routine 03/13/2021 2:00 TREAT PM FIELD TRAINING AGENT MECHANICAL VENTILATOR Routine 03/13/2021 12:00 PM FIELD TRAINING AGENT GLUCOSE POCT, B Routine 03/13/2021 Results for 11:46 AM FIELD TRAINING AGENT this procedure are in the results section. TRANSFUSE RED BLOOD Routine 03/13/2021 CELLS 10:11 AM FIELD TRAINING AGENT IRON AND TOT Routine 03/13/2021 8:28 Results for IRON-BINDING CAPACITY, AM FIELD TRAINING AGENT this procedure S/P are in the results section. FOLATE, S Routine 03/13/2021 8:28 Results for AM FIELD TRAINING AGENT this procedure are in the results section. FERRITIN, S Routine 03/13/2021 8:28 Results for AM FIELD TRAINING AGENT this procedure are in the results section. VITAMIN B12 ASSAY, S Routine 03/13/2021 8:28 Resu lts for AM FIELD TRAINING AGENT this procedure are in the results section. ADULT OXYGEN THERAPY Routine 03/13/2021 8:01 AM FIELD TRAINING AGENT PULSE OXIMETRY, Routine 03/13/2021 8:01 CONTINUOUS AM FIELD TRAINING AGENT MECHANICAL VENTILATOR Routine 03/13/2021 8:01 AM FIELD TRAINING AGENT PATIENT STATUS Routine 03/13/2021 5:37 Results fo r AM FIELD TRAINING AGENT this procedure are in the results section. ABG W/COOX Routine 03/13/2021 5:37 Results for AM FIELD TRAINING AGENT this procedure are in the results section. CBC WITH DIFFERENTIAL, Routine 03/13/2021 5:37 Re sults for B AM FIELD TRAINING AGENT this procedure are in the results section. TRIGLYCERIDES, S Routine 03/13/2021 5:37 Results for AM FIELD TRAINING AGENT this procedure are in the results section. PHOSPHORUS Routine 03/13/2021 5:37 Results for (INORGANIC), S AM FIELD TRAINING AGENT this procedur e are in the results section. MAGNESIUM, S Routine 03/13/2021 5:37 Results for AM FIELD TRAINING AGENT this procedure are in the results section. AMMONIA Routine 03/13/2021 5:37 Results for AM FIELD TRAINING AGENT this procedure are in the results section. COMPREHENSIVE Routine 03/13/2021 5:37 Results for METABOLIC PANEL, S/P AM FIELD TRAINING AGENT this pr ocedure are in the results section. DX CHEST PORTABLE 1 RAD - Routine 03/13/2021 4:32 Resu lts for VIEW (most inpatients AM FIELD TRAINING AGENT this proced ure and all are in the outpatients) results section. MECHANICAL VENTILATOR Routine 03/13/2021 4:00 AM FIELD TRAINING AGENT BASIC METABOLIC PANEL, Timed 03/13/2021 1:20 Re sults for S/P AM FIELD TRAINING AGENT this procedure are in the results section. HEMOGLOBIN, B Timed 03/13/2021 Results for 12:11 AM FIELD TRAINING AGENT this procedure are in the results section. MECHANICAL VENTILATOR Routine 03/13/2021 12:04 AM FIELD TRAINING AGENT GLUCOSE POCT, B Routine 03/12/2021 Results for 11:44 PM FIELD TRAINING AGENT this procedure are in the results section. ETHYL GLUCURONIDE SCRN Routine 03/12/2021 Resul ts for W/REFLEX, U 11:12 PM FIELD TRAINING AGENT this procedure are in the results section. LDA ANE ENDOTRACHEAL Routine 03/12/2021 Change Mental Result s for AIRWAY 10:30 PM FIELD TRAINING AGENT Status this procedure Cirrhosis are in the Alcoholic (HCC) results section. SC INTUB W ETT Routine 03/12/2021 Change Mental Results for 10:30 PM FIELD TRAINING AGENT Status this procedure Cirrhosis are in the Alcoholic (HCC) results section. ADULT OXYGEN THERAPY Routine 03/12/2021 8:01 PM FIELD TRAINING AGENT PULSE OXIMETRY, Routine 03/12/2021 8:01 CONTINUOUS PM FIELD TRAINING AGENT MECHANICAL VENTILATOR Routine 03/12/2021 8:01 PM FIELD TRAINING AGENT GLUCOSE POCT, B Routine 03/12/2021 6:11 Results f or PM FIELD TRAINING AGENT this procedure are in the results section. SC PARACENTESIS ABD WO Routine 03/12/2021 6:02 Change Mental R esults for IMG PM FIELD TRAINING AGENT Status this procedure Cirrhosis are in the Alcoholic (HCC) results section. THORACENTESIS Routine 03/12/2021 6:02 Change Mental Results fo r PM FIELD TRAINING AGENT Status this procedure Cirrhosis are in the Alcoholic (HCC) results section. MC ANE CENTRAL LINE Routine 03/12/2021 6:02 Change Mental Resu lts for GENERIC PERFORMABLE PM FIELD TRAINING AGENT Status this procedure Cirrhosis are in the Alcoholic (HCC) results section. LDA ANE CENTRAL LINE Routine 03/12/2021 6:02 Change Mental Res ults for TRIPLE LUMEN PM FIELD TRAINING AGENT Status this procedure Cirrhosis are in the Alcoholic (HCC) results section. SC US GUIDE VASC Routine 03/12/2021 6:02 Change Mental Results for ACCESS PM FIELD TRAINING AGENT Status this procedure Cirrhosis are in the Alcoholic (HCC) results section. SC INS NON-ALEN CVC Routine 03/12/2021 6:02 Change Mental Resul ts for >5YR PM FIELD TRAINING AGENT Status this procedure Cirrhosis are in the Alcoholic (HCC) results section. PH BLOOD GAS STAT 03/12/2021 5:35 Results for PM FIELD TRAINING AGENT this procedure are in the results section. HEMOGLOBIN, B STAT 03/12/2021 5:35 Results for PM FIELD TRAINING AGENT this procedure are in the results section. PHOSPHORUS STAT 03/12/2021 5:35 Results for (INORGANIC), S PM FIELD TRAINING AGENT this procedur e are in the results section. MAGNESIUM, S STAT 03/12/2021 5:35 Results for PM FIELD TRAINING AGENT this procedure are in the results section. CALCIUM, IONIZED, S/B STAT 03/12/2021 5:35 Res ults for PM FIELD TRAINING AGENT this procedure are in the results section. AMMONIA STAT 03/12/2021 5:35 Results for PM FIELD TRAINING AGENT this procedure are in the results section. COMPREHENSIVE STAT 03/12/2021 5:35 Results for METABOLIC PANEL, S/P PM FIELD TRAINING AGENT this pr ocedure are in the results section. TRANSFUSE RED BLOOD Routine 03/12/2021 4:08 CELLS PM FIELD TRAINING AGENT MECHANICAL VENTILATOR Routine 03/12/2021 4:00 PM FIELD TRAINING AGENT PROTEIN, TOTAL, BF Routine 03/12/2021 3:46 Result s for PM FIELD TRAINING AGENT this procedure are in the results section. BACTERIAL CULTURE, Routine 03/12/2021 3:46 Result s for AEROBIC + SUSC PM FIELD TRAINING AGENT this procedur e are in the results section. CELL COUNT AND Routine 03/12/2021 3:46 Results fo r DIFFERENTIAL, BF PM FIELD TRAINING AGENT this proced ure are in the results section. GRAM STAIN Routine 03/12/2021 3:46 Results for PM FIELD TRAINING AGENT this procedure are in the results section. BACTERIAL CULTURE, Routine 03/12/2021 3:46 Result s for ANAEROBIC + SUSC PM FIELD TRAINING AGENT this proced ure are in the results section. ALBUMIN, BODY FLUID Routine 03/12/2021 3:46 Resul ts for PM FIELD TRAINING AGENT this procedure are in the results section. AUTOIMMUNE LIVER Routine 03/12/2021 2:57 Results for DISEASE PANEL, S PM FIELD TRAINING AGENT this proced ure are in the results section. [id number], S Routine 03/12/2021 2:57 Re sults for PM FIELD TRAINING AGENT this procedure are in the results section. CERULOPLASMIN, S Routine 03/12/2021 2:57 Results for PM FIELD TRAINING AGENT this procedure are in the results section. GLUCOSE POCT, B Routine 03/12/2021 2:06 Results f or PM FIELD TRAINING AGENT this procedure are in the results section. RESPIRATORY ASSESS AND Routine 03/12/2021 2:00 TREAT PM FIELD TRAINING AGENT CT ABDOMEN PELVIS WITH RAD - Emergent 03/12/2021 1:50 Results for IV CONTRAST (Fastest; for the PM FIELD TRAINING AGENT this proce dure most critically are in the ill patients) results section. CT CHEST WITH IV RAD - Emergent 03/12/2021 1:50 Result s for CONTRAST (Fastest; for the PM FIELD TRAINING AGENT this proce dure most critically are in the ill patients) results section. CT HEAD WITHOUT IV RAD - Emergent 03/12/2021 1:49 Resu lts for CONTRAST (Fastest; for the PM FIELD TRAINING AGENT this proce dure most critically are in the ill patients) results section. CYTOLOGY NON-FAUCET POLISHER Routine 03/12/2021 1:11 Results for PM FIELD TRAINING AGENT this procedure are in the results section. ECG Routine 03/12/2021 1:01 Results for PM FIELD TRAINING AGENT this procedure are in the results section. DX CHEST PORTABLE 1 RAD - Semiurgent 03/12/2021 1:00 R esults for VIEW (Fast; most ED PM FIELD TRAINING AGENT this procedur e patients; some are in the inpatients) results section. TESTING LOCATION Routine 03/12/2021 Results for 12:59 PM FIELD TRAINING AGENT this procedure are in the results section. LACTATE, B STAT 03/12/2021 Results for 12:59 PM FIELD TRAINING AGENT this procedure are in the results section. PATIENT STATUS STAT 03/12/2021 Results for 12:59 PM FIELD TRAINING AGENT this procedure are in the results section. ABG W/COOX STAT 03/12/2021 Results for 12:59 PM FIELD TRAINING AGENT this procedure are in the results section. PREPARE RED BLOOD Routine 03/12/2021 CELLS 12:59 PM FIELD TRAINING AGENT PREPARE RED BLOOD Routine 03/12/2021 CELLS 12:59 PM FIELD TRAINING AGENT PREPARE RED BLOOD Routine 03/12/2021 CELLS 12:59 PM FIELD TRAINING AGENT PREPARE RED BLOOD Routine 03/12/2021 CELLS 12:59 PM FIELD TRAINING AGENT TYPE AND SCREEN Routine 03/12/2021 Results for 12:59 PM FIELD TRAINING AGENT this procedure are in the results section. LACTATE DEHYDROGENASE Routine 03/12/2021 Result s for (LD), S 12:59 PM FIELD TRAINING AGENT this procedure are in the results section. BILIRUBIN DIRECT, S/P Routine 03/12/2021 Result s for 12:59 PM FIELD TRAINING AGENT this procedure are in the results section. CYTOLOGY NON-FAUCET POLISHER Routine 03/12/2021 Results for 12:39 PM FIELD TRAINING AGENT this procedure are in the results section. PROTEIN, TOTAL, BF Routine 03/12/2021 Results f or 12:35 PM FIELD TRAINING AGENT this procedure are in the results section. LACTATE DEHYDROGENASE Routine 03/12/2021 Result s for (LD), BF 12:35 PM FIELD TRAINING AGENT this procedure are in the results section. BACTERIAL CULTURE, STAT 03/12/2021 Results f or AEROBIC + SUSC 12:34 PM FIELD TRAINING AGENT this procedur e are in the results section. CELL COUNT AND STAT 03/12/2021 Results for DIFFERENTIAL, BF 12:34 PM FIELD TRAINING AGENT this proced ure are in the results section. GRAM STAIN STAT 03/12/2021 Results for 12:34 PM FIELD TRAINING AGENT this procedure are in the results section. BACTERIAL CULTURE, STAT 03/12/2021 Results f or ANAEROBIC + SUSC 12:34 PM FIELD TRAINING AGENT this proced ure are in the results section. GLUCOSE, BODY FLUID STAT 03/12/2021 Results for 12:34 PM FIELD TRAINING AGENT this procedure are in the results section. MECHANICAL VENTILATOR Routine 03/12/2021 12:00 PM FIELD TRAINING AGENT ADULT OXYGEN THERAPY Routine 03/12/2021 11:32 AM FIELD TRAINING AGENT ADULT OXYGEN THERAPY Routine 03/12/2021 11:32 AM FIELD TRAINING AGENT ADULT OXYGEN THERAPY Routine 03/12/2021 11:32 AM FIELD TRAINING AGENT MECHANICAL VENTILATOR Routine 03/12/2021 11:32 AM FIELD TRAINING AGENT MECHANICAL VENTILATOR Routine 03/12/2021 11:32 AM FIELD TRAINING AGENT MECHANICAL VENTILATOR Routine 03/12/2021 11:32 AM FIELD TRAINING AGENT MECHANICAL VENTILATOR Routine 03/12/2021 11:32 AM FIELD TRAINING AGENT MECHANICAL VENTILATOR Routine 03/12/2021 11:32 AM FIELD TRAINING AGENT INFLUENZA A/B AND RSV, Routine 03/12/2021 Resul ts for PCR, VARIES 11:00 AM FIELD TRAINING AGENT this procedure are in the results section. SARS CORONAVIRUS-2 Routine 03/12/2021 Results f or RNA, V 11:00 AM FIELD TRAINING AGENT this procedure are in the results section. LDA ANE ARTERIAL LINE Routine 03/12/2021 Change Mental Resul ts for INSERTION 10:45 AM FIELD TRAINING AGENT Status this procedure Cirrhosis are in the Alcoholic (HCC) results section. SC ARTL CATH/CNULA Routine 03/12/2021 Change Mental Results for MONITOR PERC 10:45 AM FIELD TRAINING AGENT Status this procedure Cirrhosis are in the Alcoholic (HCC) results section. PULSE OXIMETRY, Routine 03/12/2021 8:02 CONTINUOUS AM FIELD TRAINING AGENT LACTATE, B Timed 03/12/2021 7:10 Results for AM FIELD TRAINING AGENT this procedure are in the results section. PATIENT STATUS STAT 03/12/2021 7:10 Results fo r AM FIELD TRAINING AGENT this procedure are in the results section. ABG W/COOX STAT 03/12/2021 7:10 Results for AM FIELD TRAINING AGENT this procedure are in the results section. BACTERIA / RAUDEL Routine 03/12/2021 7:10 Result s for CULTURE, BLOOD AM FIELD TRAINING AGENT this procedur e are in the results section. DX CHEST PORTABLE 1 RAD - Semiurgent 03/12/2021 6:24 R esults for VIEW (Fast; most ED AM FIELD TRAINING AGENT this procedur e patients; some are in the inpatients) results section. URINALYSIS WITH Routine 03/12/2021 6:23 Results f or MICROSCOPIC IF AM FIELD TRAINING AGENT this procedur e INDICATED, U are in the results section. HC URINALYSIS AUTO WO Routine 03/12/2021 6:23 Res ults for MICRO AM FIELD TRAINING AGENT this procedure are in the results section. DRUG SCREEN URINE Routine 03/12/2021 6:23 Results for AM FIELD TRAINING AGENT this procedure are in the results section. NASAL SCREEN FOR MRSA Routine 03/12/2021 6:23 Res ults for BY RAPID PCR AM FIELD TRAINING AGENT this procedure are in the results section. HCV AB W/REFLEX TO HCV Timed 03/12/2021 5:58 Re sults for PCR, S AM FIELD TRAINING AGENT this procedure are in the results section. HEPATITIS A IGM AB Timed 03/12/2021 5:58 Result s for AM FIELD TRAINING AGENT this procedure are in the results section. HEP B CORE AB, IGM Timed 03/12/2021 5:58 Result s for AM FIELD TRAINING AGENT this procedure are in the results section. HEPATITIS B SURFACE Timed 03/12/2021 5:58 Resul ts for ANTIGEN AM FIELD TRAINING AGENT this procedure are in the results section. AMMONIA Timed 03/12/2021 5:58 Results for AM FIELD TRAINING AGENT this procedure are in the results section. LACTATE, B STAT 03/12/2021 5:57 Results for AM FIELD TRAINING AGENT this procedure are in the results section. ETHANOL, S STAT 03/12/2021 5:57 Results for AM FIELD TRAINING AGENT this procedure are in the results section. PH BLOOD GAS STAT 03/12/2021 5:57 Results for AM FIELD TRAINING AGENT this procedure are in the results section. NT-PRO B-TYPE STAT 03/12/2021 5:57 Results for NATRIURETIC PEPTIDE AM FIELD TRAINING AGENT this pro cedure (BNP), S are in the results section. BACTERIA / RAUDEL Routine 03/12/2021 5:57 Result s for CULTURE, BLOOD AM FIELD TRAINING AGENT this procedur e are in the results section. PROTHROMBIN TIME (PT), STAT 03/12/2021 5:57 Re sults for P AM FIELD TRAINING AGENT this procedure are in the results section. CBC WITHOUT STAT 03/12/2021 5:57 Results for DIFFERENTIAL, B AM FIELD TRAINING AGENT this procedu re are in the results section. HUMAN CHORIONIC STAT 03/12/2021 5:57 Results f or GONADOTROPIN (HCG), AM FIELD TRAINING AGENT this pro cedure EDDI, are in the results section. THYROID-STIMULATING STAT 03/12/2021 5:57 Resul ts for HORMONE-SENSITIVE AM FIELD TRAINING AGENT this proce dure (S-TSH) are in the results section. PHOSPHORUS STAT 03/12/2021 5:57 Results for (INORGANIC), S AM FIELD TRAINING AGENT this procedur e are in the results section. MAGNESIUM, S STAT 03/12/2021 5:57 Results for AM FIELD TRAINING AGENT this procedure are in the results section. LIPASE, S/P STAT 03/12/2021 5:57 Results for AM FIELD TRAINING AGENT this procedure are in the results section. CALCIUM, IONIZED, S/B STAT 03/12/2021 5:57 Res ults for AM FIELD TRAINING AGENT this procedure are in the results section. ACETAMINOPHEN LEVEL, S STAT 03/12/2021 5:57 Re sults for AM FIELD TRAINING AGENT this procedure are in the results section. SALICYLATE LEVEL, S STAT 03/12/2021 5:57 Resul ts for AM FIELD TRAINING AGENT this procedure are in the results section. COMPREHENSIVE STAT 03/12/2021 5:57 Results for METABOLIC PANEL, S/P AM FIELD TRAINING AGENT this pr ocedure are in the results section. GLUCOSE POCT, B Routine 03/12/2021 5:48 Results f or AM FIELD TRAINING AGENT this procedure are in the results section. RESPIRATORY ASSESS AND Routine 03/12/2021 5:37 TREAT AM FIELD TRAINING AGENT PULSE OXIMETRY, Routine 03/12/2021 5:37 CONTINUOUS AM FIELD TRAINING AGENT PULSE OXIMETRY, Routine 03/12/2021 5:37 CONTINUOUS AM FIELD TRAINING AGENT PULSE OXIMETRY, Routine 03/12/2021 5:37 CONTINUOUS AM FIELD TRAINING AGENT documented in this encounter Results (ABNORMAL) Prothrombin Time (PT) (03/24/2021 6:15 AM FIELD TRAINING AGENT) Patholo gist Method Time Signature Prothrombin 30.1 (H) 9.4 - 12.5 03/24/2021 [facility] Time, P sec 6:52 AM FIELD TRAINING AGENT INR 2.7 0.9 - 1.1 03/24/2021 [facility] 6:52 AM FIELD TRAINING AGENT Comment: ----ADDITIONAL INFORMATION---- Standard intensity warfarin therapeutic range: 2.0 to 3.0 ?? High intensity warfarin therapeutic rang e: 2.5 to 3.5 Specimen Anatomical Collection Method Collection Time Receive d Time (Source) Location / / Volume Laterality Blood (Blood, 03/24/2021 6:15 AM 03/24/20 6:21 Venous) FIELD TRAINING AGENT AM FIELD TRAINING AGENT Darian Thomas M.D., J.D. LAB BLOOD ADD-ON Performing Organization Address City/State/ZIP Code Phon e Number [facility]- [address] [place] [phone] [place] [address] [place] [address] (ABNORMAL) Comprehensive Metabolic Panel (03/24/2021 6:15 AM FIELD TRAINING AGENT) [facility] Signature Potassium, P 4.1 3.6 - 5.2 03/24/2021 [facility] mmol/L 6:54 AM FIELD TRAINING AGENT Sodium, P 139 135 - 145 03/24/2021 [facility] mmol/L 6:54 AM FIELD TRAINING AGENT Chloride, P 108 (H) 98 - 107 03/24/2021 [facility] mmol/L 6:54 AM FIELD TRAINING AGENT Bicarbonate, P 18 (L) 22 - 29 03/24/2021 [facility] mmol/L 6:54 AM FIELD TRAINING AGENT Anion Gap, P 13 7 - 15 03/24/2021 [facility] 6:54 AM FIELD TRAINING AGENT BUN (Blood Urea 6 6 - 21 03/24/2021 [facility] Nitrogen), P mg/dL 6:54 AM FIELD TRAINING AGENT Creatinine 0.35 (L) 0.59 - 03/24/2021 [facility] 1.04 mg/dL 6:54 AM FIELD TRAINING AGENT eGFR-Black/Afri >90 >=60 03/24/2021 [facility] can Belgian mL/min/BSA 6:54 AM FIELD TRAINING AGENT Comment: ----ADDITIONAL INFORMATION---- Estimated GFR calculated using the 2009 CKD_EPI creatinine equation. eGFR Non-Black/ >90 >=60 mL/min/BSA 03/24/2021 6:54 AM FIELD TRAINING AGENT [facility] Comment: ----ADDITIONAL INFORMATION---- Estimated GFR calculated using the 2009 CKD_EPI creatinine equation. Calcium, Total, P 10.3 (H) 8.6 - 10.0 mg/dL 03/24/2021 6:54 AM FIELD TRAINING AGENT [facility] Glucose, P 120 70 - 140 mg/dL 03/24/2021 6:54 AM FIELD TRAINING AGENT M KTO Protein, Total, P 6.5 6.3 - 7.9 g/dL 03/24/2021 6:54 A M FIELD TRAINING AGENT [facility] Albumin, P 5.3 (H) 3.5 - 5.0 g/dL 03/24/2021 6:54 AM FIELD TRAINING AGENT M KTO Aspartate Aminotransferase 46 (H) 8 - 43 U/L 03/24/2021 6 :54 AM FIELD TRAINING AGENT [facility] (AST), P Alkaline Phosphatase, P 77 35 - 104 U/L 03/24/2021 6: 54 AM FIELD TRAINING AGENT [facility] Alanine Aminotransferase 20 7 - 45 U/L 03/24/2021 6:5 4 AM FIELD TRAINING AGENT [facility] (ALT), P Bilirubin, Total, P 7.8 (H) <=1.2 mg/dL 03/24/2021 6:54 AM FIELD TRAINING AGENT [facility] Specimen Anatomical Collection Method Collection Time Receive d Time (Source) Location / / Volume Laterality Blood (Blood, 03/24/2021 6:15 AM 03/24/20 6:21 Venous) FIELD TRAINING AGENT AM FIELD TRAINING AGENT Darian Thomas M.D., J.D. LAB BLOOD ADD-ON Performing Organization Address City/State/ZIP Code Phon e Number [facility]- [address] [place] [phone] [place] [address] (ABNORMAL) CBC without Differential (03/24/2021 6:15 AM FIELD TRAINING AGENT) Patholo gist Method Time Signature Hemoglobin 8.7 (L) 11.6 - 03/24/2021 [facility] 15.0 g/dL 6:33 AM FIELD TRAINING AGENT Hematocrit 26.3 (L) 35.5 - 03/24/2021 [facility] 44.9 % 6:33 AM FIELD TRAINING AGENT Erythrocytes 2.80 (L) 3.92 - 03/24/2021 [facility] 5.13 6:33 AM FIELD TRAINING AGENT x10(12)/L MCV 93.9 78.2 - 03/24/2021 [facility] 97.9 fL 6:33 AM FIELD TRAINING AGENT RBC Distrib Width 21.7 (H) 12.2 - 03/24/2021 [facility] 16.1 % 6:33 AM FIELD TRAINING AGENT Platelet Count 100 (L) 157 - 371 03/24/2021 [facility] x10(9)/L 6:33 AM FIELD TRAINING AGENT Leukocytes 10.0 (H) 3.4 - 9.6 03/24/2021 [facility] x10(9)/L 6:33 AM FIELD TRAINING AGENT Specimen Anatomical Collection Method Collection Time Receive d Time (Source) Location / / Volume Laterality Blood (Blood, 03/24/2021 6:15 AM 03/24/20 6:21 Venous) FIELD TRAINING AGENT AM FIELD TRAINING AGENT Darian Thomas M.D., J.D. LAB BLOOD ADD-ON Performing Organization Address City/State/ZIP Code Phon e Number [facility]- [address] [place] [phone] [place] [address] Zinc (03/24/2021 6:15 AM FIELD TRAINING AGENT) athologist Signature Zinc, S 0.66 0.66 - 1.10 03/25/2021 SDSC mcg/mL 10:45 AM FIELD TRAINING AGENT Comment: ----ADDITIONAL INFORMATION---- This test was developed and its performa nce characteristics determined by [facility] in a manner consistent with CLIA requirements. This test has not been cleared or approved by the [place] and Drug Administration. Specimen Anatomical Collection Method Collection Time Receive d Time (Source) Location / / Volume Laterality Blood (Blood, 03/24/2021 6:15 AM 03/25/20 8:18 Venous) FIELD TRAINING AGENT AM FIELD TRAINING AGENT Darian Thomas M.D., J.D. LAB BLOOD NON ADD-ON Performing Organization Address City/[facility] Phon e Number [facility] [address] [place] [phone] [address] [facility] [place] [address] Laboratory Medicine and Pathology [address] [place] [address] Dr. CHAPPELL (ABNORMAL) Vitamin A and Vitamin E (03/24/2021 6:15 AM FIELD TRAINING AGENT) athologist Signature Vitamin A <5.0 (L) 32.5 - 78.0 03/26/2021 [facility] mcg/dL 10:49 AM FIELD TRAINING AGENT Comment: In this sample, the retinol (vitamin A) level indicates a severe deficiency. ----ADDITIONAL INFORMATION---- This test was developed and its performa nce characteristics determined by [facility] in a manner consistent with CLIA requirements. This test has not been cleared or approved by the [place] and Drug Administration. A-Tocopherol, Vitamin E 5.4 (L) 5.5 - 17.0 mg/L 03/27/2021 4:54 AM FIELD TRAINING AGENT [facility] Specimen Anatomical Collection Method Collection Time Receive d Time (Source) Location / / Volume Laterality Blood (Blood, 03/24/2021 6:15 AM 03/25/20 3:48 Venous) FIELD TRAINING AGENT PM FIELD TRAINING AGENT Darian Thomas M.D., J.D. LAB BLOOD NON ADD-ON Performing Organization Address City/[facility]/ZIP Code Phon e Number [address] [place] [phone] [address] [facility] [place] [address] Laboratory Medicine and Pathology [address] [place] [address] Dr. CHAPPELL Transfuse Red Blood Cells : (03/23/2021 5:52 PM FIELD TRAINING AGENT) Darian Thomas M.D., J.D. BLOOD TRANSFUSION ORDERAB LES Transfuse Red Blood Cells : , 1 Units (03/23/2021 5:52 PM FIELD TRAINING AGENT) Darian Thomas M.D., J.D. BLOOD TRANSFUSION ORDERAB LES Testing Location (03/23/2021 1:12 PM FIELD TRAINING AGENT) athologist Signature Testing [facility] DEFAULT 03/23/2021 [facility] Location 1:22 PM FIELD TRAINING AGENT Specimen Anatomical Collection Method Collection Time Receive d Time (Source) Location / / Volume Laterality Blood 03/23/2021 1:12 PM 1:21 FIELD TRAINING AGENT PM FIELD TRAINING AGENT Darian Thomas M.D., J.D. LAB BLOOD BANK TEST ORDER HARVEY Performing Organization Address City/[facility] Phon e Number [facility]- [address] [place] [phone] [place] [address] Type and Screen (with reflex Antibody ID) (03/23/2021 1:12 PM FIELD TRAINING AGENT) [facility] gist Method Time Signature ABO Group B 03/23/2021 [facility] 2:01 PM FIELD TRAINING AGENT Rh Type POS 03/23/2021 [facility] 2:01 PM FIELD TRAINING AGENT Antibody Screen NEG 03/23/2021 [facility] 2:01 PM FIELD TRAINING AGENT Type & Screen 03/26/2021 03/23/2021 [facility] Expiration 23:59 2:01 PM FIELD TRAINING AGENT ELXM Eligible Y 03/23/2021 [facility] 2:01 PM FIELD TRAINING AGENT Specimen Anatomical Collection Method Collection Time Receive d Time (Source) Location / / Volume Laterality Blood (Blood, 03/23/2021 1:12 PM 03/23/20 1:21 Venous) FIELD TRAINING AGENT PM FIELD TRAINING AGENT Darian Thomas M.D., J.D. LAB BLOOD BANK TEST ORDER HARVEY Performing Organization Address City/[facility] Phon e Number [facility]- [address] [place] [phone] [place] [address] (ABNORMAL) Phosphorus Inorganic (03/23/2021 6:43 AM FIELD TRAINING AGENT) athologist Signature Phosphorus 2.4 (L) 2.5 - 4.5 03/23/2021 [facility] (Inorganic), P mg/dL 7:40 AM FIELD TRAINING AGENT Specimen Anatomical Collection Method Collection Time Receive d Time (Source) Location / / Volume Laterality Blood (Blood, 03/23/2021 6:43 AM 03/23/20 6:58 Venous) FIELD TRAINING AGENT AM FIELD TRAINING AGENT Darian Thomas M.D., J.D. LAB BLOOD ADD-ON Performing Organization Address [facility] Phon e Number [facility]- [address] [place] [phone] [place] [address] [address] Magnesium (03/23/2021 6:43 AM FIELD TRAINING AGENT) P athologist Signature Magnesium, P 1.9 1.7 - 2.3 03/23/2021 [facility] mg/dL 7:40 AM FIELD TRAINING AGENT Specimen Anatomical Collection Method Collection Time Receive d Time (Source) Location / / Volume Laterality Blood (Blood, 03/23/2021 6:43 AM 03/23/20 6:58 Venous) FIELD TRAINING AGENT AM FIELD TRAINING AGENT Darian Thomas M.D., J.D. LAB BLOOD ADD-ON Performing Organization Address [facility] Phon e Number [facility]- [address] [place] [phone] [place] [address] (ABNORMAL) Prothrombin Time (PT) (03/23/2021 6:43 AM FIELD TRAINING AGENT) Patholo gist Method Time Signature Prothrombin 31.8 (H) 9.4 - 12.5 03/23/2021 [facility] Time, P sec 7:55 AM FIELD TRAINING AGENT INR 2.8 0.9 - 1.1 03/23/2021 [facility] 7:55 AM FIELD TRAINING AGENT Comment: ----ADDITIONAL INFORMATION---- Standard intensity warfarin therapeutic range: 2.0 to 3.0 ?? High intensity warfarin therapeutic rang e: 2.5 to 3.5 Specimen Anatomical Collection Method Collection Time Receive d Time (Source) Location / / Volume Laterality Blood (Blood, 03/23/2021 6:43 AM 03/23/20 6:58 Venous) FIELD TRAINING AGENT AM FIELD TRAINING AGENT Darianbrooks Thomas M.D., J.D. LAB BLOOD ADD-ON Performing Organization Address City/State/ZIP Code Phon e Number [facility]- [address] [place] [address] [place] [address] System in [place] [address] [facility] (ABNORMAL) Comprehensive Metabolic Panel (03/23/2021 6:43 AM FIELD TRAINING AGENT) Analysis Performed At Patho logist Time Signature Potassium, P 3.4 (L) 3.6 - 5.2 03/23/2021 [facility] mmol/L 7:40 AM FIELD TRAINING AGENT Sodium, P 139 135 - 145 03/23/2021 [facility] mmol/L 7:40 AM FIELD TRAINING AGENT Chloride, P 106 98 - 107 03/23/2021 [facility] mmol/L 7:40 AM FIELD TRAINING AGENT Bicarbonate, P 19 (L) 22 - 29 03/23/2021 [facility] mmol/L 7:40 AM FIELD TRAINING AGENT Anion Gap, P 14 7 - 15 03/23/2021 [facility] 7:40 AM FIELD TRAINING AGENT BUN (Blood Urea 6 6 - 21 03/23/2021 [facility] Nitrogen), P mg/dL 7:40 AM FIELD TRAINING AGENT Creatinine 0.37 (L) 0.59 - 03/23/2021 [facility] 1.04 mg/dL 7:40 AM FIELD TRAINING AGENT eGFR-Black/Afri >90 >=60 03/23/2021 [facility] can Belgian mL/min/BSA 7:40 AM FIELD TRAINING AGENT Comment: ----ADDITIONAL INFORMATION---- Estimated GFR calculated using the 2009 CKD_EPI creatinine equation. eGFR Non-Black/ >90 >=60 mL/min/BSA 03/23/2021 7:40 AM FIELD TRAINING AGENT [facility] Comment: ----ADDITIONAL INFORMATION---- Estimated GFR calculated using the 2009 CKD_EPI creatinine equation. Calcium, Total, P 10.3 (H) 8.6 - 10.0 mg/dL 03/23/2021 7:40 AM FIELD TRAINING AGENT [facility] Glucose, P 152 (H) 70 - 140 mg/dL 03/23/2021 7:40 AM FIELD TRAINING AGENT M KTO Protein, Total, P 6.3 6.3 - 7.9 g/dL 03/23/2021 7:40 A M FIELD TRAINING AGENT [facility] Albumin, P 5.3 (H) 3.5 - 5.0 g/dL 03/23/2021 7:40 AM FIELD TRAINING AGENT M KTO Aspartate Aminotransferase 51 (H) 8 - 43 U/L 03/23/2021 7 :40 AM FIELD TRAINING AGENT [facility] (AST), P Alkaline Phosphatase, P 73 35 - 104 U/L 03/23/2021 7: 40 AM FIELD TRAINING AGENT [facility] Alanine Aminotransferase 21 7 - 45 U/L 03/23/2021 7:4 0 AM FIELD TRAINING AGENT [facility] (ALT), P Bilirubin, Total, P 6.1 (H) <=1.2 mg/dL 03/23/2021 7:40 AM FIELD TRAINING AGENT [facility] Specimen Anatomical Collection Method Collection Time Receive d Time (Source) Location / / Volume Laterality Blood (Blood, 03/23/2021 6:43 AM 03/23/20 6:58 Venous) FIELD TRAINING AGENT AM FIELD TRAINING AGENT Darian Thomas M.D., J.D. LAB BLOOD ADD-ON Performing Organization Address City/State/ZIP Code Phon e Number [facility]- [address] [place] [phone] [place] [address] [place] [address] [address] (ABNORMAL) CBC without Differential (03/23/2021 6:43 AM FIELD TRAINING AGENT) [facility] gist Method Time Signature Hemoglobin 6.8 (L) 11.6 - 03/23/2021 [facility] 15.0 g/dL 7:45 AM FIELD TRAINING AGENT Hematocrit 21.0 (L) 35.5 - 03/23/2021 [facility] 44.9 % 7:45 AM FIELD TRAINING AGENT Erythrocytes 2.28 (L) 3.92 - 03/23/2021 [facility] 5.13 7:45 AM FIELD TRAINING AGENT x10(12)/L MCV 92.1 78.2 - 03/23/2021 [facility] 97.9 fL 7:45 AM FIELD TRAINING AGENT RBC Distrib Width 22.2 (H) 12.2 - 03/23/2021 [facility] 16.1 % 7:45 AM FIELD TRAINING AGENT Platelet Count 98 (L) 157 - 371 03/23/2021 [facility] x10(9)/L 7:45 AM FIELD TRAINING AGENT Leukocytes 9.2 3.4 - 9.6 03/23/2021 [facility] x10(9)/L 7:45 AM FIELD TRAINING AGENT Specimen Anatomical Collection Method Collection Time Receive d Time (Source) Location / / Volume Laterality Blood (Blood, 03/23/2021 6:43 AM 03/23/20 6:58 Venous) FIELD TRAINING AGENT AM FIELD TRAINING AGENT Darian Thomas M.D., J.D. LAB BLOOD ADD-ON Performing Organization Address City/[facility]/ZIP Code Phon e Number [address] [phone] [place] [address] (ABNORMAL) Lactate, B (03/22/2021 8:38 AM FIELD TRAINING AGENT) P athologist Signature Lactate, B 2.3 (H) 0.5 - 2.2 03/22/2021 [facility] mmol/L 8:58 AM FIELD TRAINING AGENT Specimen Anatomical Collection Method Collection Time Receive d Time (Source) Location / / Volume Laterality Blood 03/22/2021 8:38 AM 8:50 FIELD TRAINING AGENT AM FIELD TRAINING AGENT Darian Thomas M.D., J.D. LAB BLOOD NON ADD-ON Performing Organization Address City/[facility]/ZIP Code Phon e Number [address] [address] [place] [address] [address] (ABNORMAL) Ammonia (03/22/2021 8:38 AM FIELD TRAINING AGENT) P athologist Signature Ammonia, P 60 (H) <=51 03/22/2021 [facility] mcmol/L 9:11 AM FIELD TRAINING AGENT Specimen Anatomical Collection Method Collection Time Receive d Time (Source) Location / / Volume Laterality Blood (Blood, 03/22/2021 8:38 AM 03/22/20 8:50 Venous) FIELD TRAINING AGENT AM FIELD TRAINING AGENT Darian Thomas M.D., J.D. LAB BLOOD NON ADD-ON Performing Organization Address City/[facility]/ZIP Code Phon e Number [address] [phone] [place] [address] (ABNORMAL) Prothrombin Time (PT) (03/22/2021 8:38 AM FIELD TRAINING AGENT) Patholo gist Method Time Signature Prothrombin 30.5 (H) 9.4 - 12.5 03/22/2021 [facility] Time, P sec 9:24 AM FIELD TRAINING AGENT INR 2.7 0.9 - 1.1 03/22/2021 [facility] 9:24 AM FIELD TRAINING AGENT Comment: ----ADDITIONAL INFORMATION---- Standard intensity warfarin therapeutic range: 2.0 to 3.0 ?? High intensity warfarin therapeutic rang e: 2.5 to 3.5 Specimen Anatomical Collection Method Collection Time Receive d Time (Source) Location / / Volume Laterality Blood (Blood, 03/22/2021 8:38 AM 03/22/20 8:50 Venous) FIELD TRAINING AGENT AM FIELD TRAINING AGENT Darian Thomas M.D., J.D. LAB BLOOD ADD-ON Performing Organization Address City/State/ZIP Code Phon e Number [facility]- [address] [place] [address] [place] [address] [address] (ABNORMAL) Comprehensive Metabolic Panel (03/22/2021 8:38 AM FIELD TRAINING AGENT) [facility] Time Signature Potassium, P 3.4 (L) 3.6 - 5.2 03/22/2021 [facility] mmol/L 9:20 AM FIELD TRAINING AGENT Sodium, P 139 135 - 145 03/22/2021 [facility] mmol/L 9:20 AM FIELD TRAINING AGENT Chloride, P 105 98 - 107 03/22/2021 [facility] mmol/L 9:20 AM FIELD TRAINING AGENT Bicarbonate, P 19 (L) 22 - 29 03/22/2021 [facility] mmol/L 9:20 AM FIELD TRAINING AGENT Anion Gap, P 15 7 - 15 03/22/2021 [facility] 9:20 AM FIELD TRAINING AGENT BUN (Blood Urea 6 6 - 21 03/22/2021 [facility] Nitrogen), P mg/dL 9:20 AM FIELD TRAINING AGENT Creatinine 0.40 (L) 0.59 - 03/22/2021 [facility] 1.04 mg/dL 9:20 AM FIELD TRAINING AGENT eGFR-Black/Afri >90 >=60 03/22/2021 [facility] can Belgian mL/min/BSA 9:20 AM FIELD TRAINING AGENT Comment: ----ADDITIONAL INFORMATION---- Estimated GFR calculated using the 2009 CKD_EPI creatinine equation. eGFR Non-Black/ >90 >=60 mL/min/BSA 03/22/2021 9:20 AM FIELD TRAINING AGENT [facility] Comment: ----ADDITIONAL INFORMATION---- Estimated GFR calculated using the 2009 CKD_EPI creatinine equation. Calcium, Total, P 10.1 (H) 8.6 - 10.0 mg/dL 03/22/2021 9:20 AM FIELD TRAINING AGENT [facility] Glucose, P 115 70 - 140 mg/dL 03/22/2021 9:20 AM FIELD TRAINING AGENT M KTO Protein, Total, P 6.2 (L) 6.3 - 7.9 g/dL 03/22/2021 9:20 A M FIELD TRAINING AGENT [facility] Albumin, P 5.2 (H) 3.5 - 5.0 g/dL 03/22/2021 9:20 AM FIELD TRAINING AGENT M KTO Aspartate Aminotransferase 52 (H) 8 - 43 U/L 03/22/2021 9 :20 AM FIELD TRAINING AGENT [facility] (AST), P Alkaline Phosphatase, P 59 35 - 104 U/L 03/22/2021 9: 20 AM FIELD TRAINING AGENT [facility] Alanine Aminotransferase 20 7 - 45 U/L 03/22/2021 9:2 0 AM FIELD TRAINING AGENT [facility] (ALT), P Bilirubin, Total, P 5.9 (H) <=1.2 mg/dL 03/22/2021 9:20 AM FIELD TRAINING AGENT [facility] Specimen Anatomical Collection Method Collection Time Receive d Time (Source) Location / / Volume Laterality Blood (Blood, 03/22/2021 8:38 AM 03/22/20 8:50 Venous) FIELD TRAINING AGENT AM FIELD TRAINING AGENT Darian Thomas M.D., J.D. LAB BLOOD ADD-ON Performing Organization Address City/State/ZIP Code Phon e Number [facility]- [address] [place] [phone] [place] [address] [place] [address] (ABNORMAL) CBC without Differential (03/22/2021 8:38 AM FIELD TRAINING AGENT) [facility] gist Method Time Signature Hemoglobin 7.2 (L) 11.6 - 03/22/2021 [facility] 15.0 g/dL 9:11 AM FIELD TRAINING AGENT Hematocrit 22.6 (L) 35.5 - 03/22/2021 [facility] 44.9 % 9:11 AM FIELD TRAINING AGENT Erythrocytes 2.39 (L) 3.92 - 03/22/2021 [facility] 5.13 9:11 AM FIELD TRAINING AGENT x10(12)/L MCV 94.6 78.2 - 03/22/2021 [facility] 97.9 fL 9:11 AM FIELD TRAINING AGENT RBC Distrib Width 21.6 (H) 12.2 - 03/22/2021 [facility] 16.1 % 9:11 AM FIELD TRAINING AGENT Platelet Count 98 (L) 157 - 371 03/22/2021 [facility] x10(9)/L 9:11 AM FIELD TRAINING AGENT Leukocytes 9.0 3.4 - 9.6 03/22/2021 [facility] x10(9)/L 9:11 AM FIELD TRAINING AGENT Specimen Anatomical Collection Method Collection Time Receive d Time (Source) Location / / Volume Laterality Blood (Blood, 03/22/2021 8:38 AM 03/22/20 8:50 Venous) FIELD TRAINING AGENT AM FIELD TRAINING AGENT Darian Thomas M.D., J.D. LAB BLOOD ADD-ON Performing Organization Address City/[facility] Phon e Number [address] [phone] [place] [facility] [place] [phone] System in [address] Phosphorus Inorganic (03/22/2021 8:33 AM FIELD TRAINING AGENT) athologist Signature Phosphorus 2.7 2.5 - 4.5 03/22/2021 [facility] (Inorganic), P mg/dL 2:17 PM FIELD TRAINING AGENT Specimen Anatomical Collection Method Collection Time Receive d Time (Source) Location / / Volume Laterality Blood (Blood, 03/22/2021 8:33 AM 03/22/20 2:07 Venous) FIELD TRAINING AGENT PM FIELD TRAINING AGENT Darian Thomas M.D., J.D. LAB BLOOD ADD-ON Performing Organization Address City/[facility] Phon e Number [address] [address] [place] [address] (ABNORMAL) Magnesium (03/22/2021 8:33 AM FIELD TRAINING AGENT) P athologist Signature Magnesium, P 1.6 (L) 1.7 - 2.3 03/22/2021 [facility] mg/dL 2:17 PM FIELD TRAINING AGENT Specimen Anatomical Collection Method Collection Time Receive d Time (Source) Location / / Volume Laterality Blood (Blood, 03/22/2021 8:33 AM 03/22/20 2:07 Venous) FIELD TRAINING AGENT PM FIELD TRAINING AGENT Darian Thomas M.D., J.D. LAB BLOOD ADD-ON Performing Organization Address City/[facility]/ZIP Code Phon e Number [facility]- [address] [place] [phone] [place] [address] EEG ROUTINE (03/21/2021 4:43 PM FIELD TRAINING AGENT) Specimen (Source) Anatomical Location Collection Method / Collectio n Time Received Time / Laterality Volume Narrative MMODAL - 03/21/2021 5:13 PM FIELD TRAINING AGENT Clinical Interpretation: The short-term video EEG shows [...] M.D., M.P.H. NEUROLOGY ORDERABLES Performing Organization Address City/[facility]/ZIP Code Phon e Number MMODAL MMODAL NA CT Abdomen Pelvis without IV Contrast (03/21/2021 12:42 PM FIELD TRAINING AGENT) Anatomical Region Laterality Modality Abdomen, Pelvis, Abdominal RST LOS, Abdominal ARZ LOS, N/A Computed Tomography Abdominal FLA LOS Specimen (Source) Anatomical Collection Method Collection Time Re ceived Time Location / / Volume Laterality 03/21/2021 1:09 PM FIELD TRAINING AGENT Impressions 03/21/2021 1:19 PM FIELD TRAINING AGENT 1. Slight interval DECREASE in abdominal ascites, however attenuation values have slightly increased, and are indeter minate, raising the possibility that there is blood within this free peritone al fluid. Consider paracentesis 2. No CT evidence for retroperitoneal he morrhage. Narrative 03/21/2021 1:19 PM FIELD TRAINING AGENT EXAM: CT ABDOMEN PELVIS WITHOUT IV CONTRAST [...] Head without IV Contrast (03/21/2021 12:42 PM FIELD TRAINING AGENT) Anatomical Region Laterality Modality Head, Neuroradiology RST LOS, Neuroradiology ARZ LOS, N/A Computed Tomography Neuroradiology FLA LOS Specimen (Source) Anatomical Collection Method Collection Time Re ceived Time Location / / Volume Laterality 03/21/2021 1:08 PM FIELD TRAINING AGENT Impressions 03/21/2021 1:09 PM FIELD TRAINING AGENT No acute intracranial pathology Narrative 03/21/2021 1:09 PM FIELD TRAINING AGENT EXAM: CT HEAD WITHOUT IV CONTRAST COMPARISON: [...] PROCEDURES ECG 12 Lead (03/21/2021 10:06 AM FIELD TRAINING AGENT) P athologist Signature Ventricular Rate 92 BPM MUSE ECG/Min SC Interval 148 ms MUSE QRSD Interval 82 ms MUSE QT Interval 342 ms MUSE QTC Interval 422 ms MUSE P Winston 0 degrees MUSE R Winston 58 degrees MUSE T Wave Winston 12 degrees MUSE Specimen Anatomical Collection Method Collection Time Receive d Time (Source) Location / / Volume Laterality 03/21/2021 10:06 03/21/2021 AM FIELD TRAINING AGENT 10:09 AM FIELD TRAINING AGENT Impressions MUSE - 03/21/2021 10:10 AM FIELD TRAINING AGENT Normal sinus rhythm Nonspecific T wave abnormality [...] (ABNORMAL) Comprehensive Metabolic Panel (03/21/2021 5:44 AM FIELD TRAINING AGENT) Analysis Performed At Patho logist Time Signature Potassium, P 3.8 3.6 - 5.2 03/21/2021 [facility] mmol/L 6:33 AM FIELD TRAINING AGENT Sodium, P 141 135 - 145 03/21/2021 [facility] mmol/L 6:33 AM FIELD TRAINING AGENT Chloride, P 108 (H) 98 - 107 03/21/2021 [facility] mmol/L 6:33 AM FIELD TRAINING AGENT Bicarbonate, P 19 (L) 22 - 29 03/21/2021 [facility] mmol/L 6:33 AM FIELD TRAINING AGENT Anion Gap, P 14 7 - 15 03/21/2021 [facility] 6:33 AM FIELD TRAINING AGENT BUN (Blood Urea 4 (L) 6 - 21 03/21/2021 [facility] Nitrogen), P mg/dL 6:33 AM FIELD TRAINING AGENT Creatinine 0.38 (L) 0.59 - 03/21/2021 [facility] 1.04 mg/dL 6:33 AM FIELD TRAINING AGENT eGFR-Black/Afri >90 >=60 03/21/2021 [facility] can Belgian mL/min/BSA 6:33 AM FIELD TRAINING AGENT Comment: ----ADDITIONAL INFORMATION---- Estimated GFR calculated using the 2009 CKD_EPI creatinine equation. eGFR Non-Black/ >90 >=60 mL/min/BSA 03/21/2021 6:33 AM FIELD TRAINING AGENT [facility] Comment: ----ADDITIONAL INFORMATION---- Estimated GFR calculated using the 2009 CKD_EPI creatinine equation. Calcium, Total, P 10.3 (H) 8.6 - 10.0 mg/dL 03/21/2021 6:33 AM [facility] FIELD TRAINING AGENT Glucose, P 104 70 - 140 mg/dL 03/21/2021 6:33 AM [facility] FIELD TRAINING AGENT Protein, Total, P 6.2 (L) 6.3 - 7.9 g/dL 03/21/2021 6:33 A M [facility] FIELD TRAINING AGENT Albumin, P 5.2 (H) 3.5 - 5.0 g/dL 03/21/2021 6:33 AM [facility] FIELD TRAINING AGENT Aspartate Aminotransferase SEE COMMENT 8 - 43 U/L 03/21/2021 6:43 AM [facility] (AST), P FIELD TRAINING AGENT Comment: Specimen was hemolyzed. Alkaline Phosphatase, P 52 35 - 104 U/L 03/21/2021 6: 33 AM FIELD TRAINING AGENT [facility] Alanine Aminotransferase (ALT), 19 7 - 45 U/L 021 6:33 AM FIELD TRAINING AGENT [facility] P Bilirubin, Total, P 5.8 (H) <=1.2 mg/dL 03/21/2021 6:33 AM FIELD TRAINING AGENT [facility] Specimen Anatomical Collection Method Collection Time Receive d Time (Source) Location / / Volume Laterality Blood (Blood, 03/21/2021 5:44 AM 03/21/20 5:50 Venous) FIELD TRAINING AGENT AM FIELD TRAINING AGENT Darian Thomas M.D., J.D. LAB BLOOD ADD-ON Performing Organization Address City/State/ZIP Code Phon e Number [facility]- [facility] [place] [address] [place] [address] System in [place] [address] [place] [address] Lactate, B (03/21/2021 5:43 AM FIELD TRAINING AGENT) P athologist Signature Lactate, B 1.7 0.5 - 2.2 03/21/2021 [facility] mmol/L 5:56 AM FIELD TRAINING AGENT Specimen Anatomical Collection Method Collection Time Receive d Time (Source) Location / / Volume Laterality Blood 03/21/2021 5:43 AM 5:50 FIELD TRAINING AGENT AM FIELD TRAINING AGENT Alka Cordero P.A.-C. MSumaSSuma LAB BLOOD NON ADD-ON Performing Organization Address City/[facility] Phon e Number [facility]- [address] [place] [phone] [place] [address] (ABNORMAL) CBC without Differential (03/21/2021 5:43 AM FIELD TRAINING AGENT) [facility] Method Time Signature Hemoglobin 7.0 (L) 11.6 - 03/21/2021 [facility] 15.0 g/dL 6:09 AM FIELD TRAINING AGENT Hematocrit 21.2 (L) 35.5 - 03/21/2021 [facility] 44.9 % 6:09 AM FIELD TRAINING AGENT Erythrocytes 2.35 (L) 3.92 - 03/21/2021 [facility] 5.13 6:09 AM FIELD TRAINING AGENT x10(12)/L MCV 90.2 78.2 - 03/21/2021 [facility] 97.9 fL 6:09 AM FIELD TRAINING AGENT RBC Distrib Width 21.1 (H) 12.2 - 03/21/2021 [facility] 16.1 % 6:09 AM FIELD TRAINING AGENT Platelet Count 91 (L) 157 - 371 03/21/2021 [facility] x10(9)/L 6:09 AM FIELD TRAINING AGENT Leukocytes 7.8 3.4 - 9.6 03/21/2021 [facility] x10(9)/L 6:09 AM FIELD TRAINING AGENT Specimen Anatomical Collection Method Collection Time Receive d Time (Source) Location / / Volume Laterality Blood (Blood, 03/21/2021 5:43 AM 03/21/20 5:50 Venous) FIELD TRAINING AGENT AM FIELD TRAINING AGENT Darian Thomas M.D., J.D. LAB BLOOD ADD-ON Performing Organization Address City/[facility] Phon e Number [facility]- [address] [place] [phone] [place] [address] (ABNORMAL) Prothrombin Time (PT) (03/21/2021 5:43 AM FIELD TRAINING AGENT) [facility] Method Time Signature Prothrombin 29.0 (H) 9.4 - 12.5 03/21/2021 [facility] Time, P sec 6:02 AM FIELD TRAINING AGENT INR 2.6 0.9 - 1.1 03/21/2021 [facility] 6:02 AM FIELD TRAINING AGENT Comment: ----ADDITIONAL INFORMATION---- Standard intensity warfarin therapeutic range: 2.0 to 3.0 ?? High intensity warfarin therapeutic rang e: 2.5 to 3.5 Specimen Anatomical Collection Method Collection Time Receive d Time (Source) Location / / Volume Laterality Blood (Blood, 03/21/2021 5:43 AM 03/21/20 5:50 Venous) FIELD TRAINING AGENT AM FIELD TRAINING AGENT Keerthi Guzman M.D. LAB BLOOD ADD-ON Performing Organization Address City/[facility]/ZIP [place] Phon e Number [facility]- [address] [place] [address] (ABNORMAL) Lactate, B (03/20/2021 10:32 PM FIELD TRAINING AGENT) P athologist Signature Lactate, B 4.1 (H) 0.5 - 2.2 03/20/2021 [facility] mmol/L 10:44 PM FIELD TRAINING AGENT Specimen Anatomical Collection Method Collection Time Receive d Time (Source) Location / / Volume Laterality Blood 03/20/2021 10:32 03/20/2021 PM FIELD TRAINING AGENT 10:39 PM FIELD TRAINING AGENT Alka Cordero P.A.-C., M.S. LAB BLOOD NON ADD-ON Performing Organization Address City/[facility] Phon e Number [facility]- [address] [place], [place] [phone] [place] [address] [address] (ABNORMAL) Comprehensive Metabolic Panel (03/20/2021 10:32 PM FIELD TRAINING AGENT) Analysis Performed At Patho logist Time Signature Potassium, P 3.6 3.6 - 5.2 03/20/2021 [facility] mmol/L 11:16 PM FIELD TRAINING AGENT Sodium, P 141 135 - 145 03/20/2021 [facility] mmol/L 11:16 PM FIELD TRAINING AGENT Chloride, P 107 98 - 107 03/20/2021 [facility] mmol/L 11:16 PM FIELD TRAINING AGENT Bicarbonate, P 17 (L) 22 - 29 03/20/2021 [facility] mmol/L 11:16 PM FIELD TRAINING AGENT Anion Gap, P 17 (H) 7 - 15 03/20/2021 [facility] 11:16 PM FIELD TRAINING AGENT BUN (Blood Urea 4 (L) 6 - 21 03/20/2021 [facility] Nitrogen), P mg/dL 11:16 PM FIELD TRAINING AGENT Creatinine 0.43 (L) 0.59 - 03/20/2021 [facility] 1.04 mg/dL 11:16 PM FIELD TRAINING AGENT eGFR-Black/Afri >90 >=60 03/20/2021 [facility] can Belgian mL/min/BSA 11:16 PM FIELD TRAINING AGENT Comment: ----ADDITIONAL INFORMATION---- Estimated GFR calculated using the 2009 CKD_EPI creatinine equation. eGFR Non-Black/ >90 >=60 mL/min/BSA 03/20/2021 11:16 PM FIELD TRAINING AGENT [facility] Comment: ----ADDITIONAL INFORMATION---- Estimated GFR calculated using the 2009 CKD_EPI creatinine equation. Calcium, Total, P 10.6 (H) 8.6 - 10.0 mg/dL 03/20/2021 11:1 6 PM [facility] FIELD TRAINING AGENT Glucose, P 117 70 - 140 mg/dL 03/20/2021 11:16 PM [facility] FIELD TRAINING AGENT Protein, Total, P 6.8 6.3 - 7.9 g/dL 03/20/2021 11:16 PM [facility] FIELD TRAINING AGENT Albumin, P 5.6 (H) 3.5 - 5.0 g/dL 03/20/2021 11:16 PM [facility] FIELD TRAINING AGENT Aspartate Aminotransferase 56 (H) 8 - 43 U/L 03/20/2021 1 1:16 PM [facility] (AST), P FIELD TRAINING AGENT Alkaline Phosphatase, P 59 35 - 104 U/L 03/20/2021 11 :16 PM [facility] FIELD TRAINING AGENT Alanine Aminotransferase 21 7 - 45 U/L 03/20/2021 11: 16 PM [facility] (ALT), P FIELD TRAINING AGENT Bilirubin, Total, P 6.0 (H) <=1.2 mg/dL 03/20/2021 11:16 P M [facility] FIELD TRAINING AGENT Specimen Anatomical Collection Method Collection Time Receive d Time (Source) Location / / Volume Laterality Blood (Blood, 03/20/2021 10:32 03/20/2021 Venous) PM FIELD TRAINING AGENT 10:39 PM FIELD TRAINING AGENT Alka Cordero P.A.-C., M.S. LAB BLOOD ADD-ON Performing Organization Address City/[facility]/ZIP Code Phon e Number [facility]- [address] [place] [phone] [place] [address] (ABNORMAL) Ammonia (03/20/2021 10:32 PM FIELD TRAINING AGENT) P athologist Signature Ammonia, P 63 (H) <=51 03/20/2021 [facility] mcmol/L 11:02 PM FIELD TRAINING AGENT Specimen Anatomical Collection Method Collection Time Receive d Time (Source) Location / / Volume Laterality Blood (Blood, 03/20/2021 10:32 03/20/2021 Venous) PM FIELD TRAINING AGENT 10:38 PM FIELD TRAINING AGENT Alka Cordero P.A.-C., M.S. LAB BLOOD NON ADD-ON Performing Organization Address [facility] Phon e Number [facility]- [address] [place] [phone] [place] [address] CK (Creatine Kinase) (03/20/2021 10:32 PM FIELD TRAINING AGENT) P athologist Signature Creatine 40 26 - 192 03/20/2021 [facility] Kinase, P U/L 11:16 PM FIELD TRAINING AGENT Specimen Anatomical Collection Method Collection Time Receive d Time (Source) Location / / Volume Laterality Blood (Blood, 03/20/2021 10:32 03/20/2021 Venous) PM FIELD TRAINING AGENT 10:39 PM FIELD TRAINING AGENT Alka Cordero P.A.-C., M.S. LAB BLOOD ADD-ON Performing Organization Address [facility] Phon e Number [facility]- [address] [place] [phone] [place] [address] (ABNORMAL) CBC with Differential, Blood (03/20/2021 10:32 PM FIELD TRAINING AGENT) Patholo gist Method Time Signature Hemoglobin 7.5 (L) 11.6 - 03/20/2021 [facility] 15.0 g/dL 10:43 PM FIELD TRAINING AGENT Hematocrit 22.5 (L) 35.5 - 03/20/2021 [facility] 44.9 % 10:43 PM FIELD TRAINING AGENT Erythrocytes 2.44 (L) 3.92 - 03/20/2021 [facility] 5.13 10:43 PM FIELD TRAINING AGENT x10(12)/L MCV 92.2 78.2 - 03/20/2021 [facility] 97.9 fL 10:43 PM FIELD TRAINING AGENT RBC Distrib Width 20.9 (H) 12.2 - 03/20/2021 [facility] 16.1 % 10:43 PM FIELD TRAINING AGENT Platelet Count 84 (L) 157 - 371 03/20/2021 [facility] x10(9)/L 10:43 PM FIELD TRAINING AGENT Leukocytes 8.4 3.4 - 9.6 03/20/2021 [facility] x10(9)/L 10:43 PM FIELD TRAINING AGENT Neutrophils 6.38 1.56 - 03/20/2021 [facility] 6.45 10:43 PM FIELD TRAINING AGENT x10(9)/L Lymphocytes 1.10 0.95 - 03/20/2021 [facility] 3.07 10:43 PM FIELD TRAINING AGENT x10(9)/L Monocytes 0.75 0.26 - 03/20/2021 [facility] 0.81 10:43 PM FIELD TRAINING AGENT x10(9)/L Eosinophils 0.10 0.03 - 03/20/2021 [facility] 0.48 10:43 PM FIELD TRAINING AGENT x10(9)/L Basophils <0.03 0.01 - 03/20/2021 [facility] 0.08 10:43 PM FIELD TRAINING AGENT x10(9)/L Specimen Anatomical Collection Method Collection Time Receive d Time (Source) Location / / Volume Laterality Blood (Blood, 03/20/2021 10:32 03/20/2021 Venous) PM FIELD TRAINING AGENT 10:39 PM FIELD TRAINING AGENT Alka Cordero P.A.-C., M.S. LAB BLOOD ADD-ON Performing Organization Address City/State/ZIP Code Phon e Number [facility]- [address] [place] [phone] [place] [address] System in [place] [address] [place] [address] Glucose, POCT (03/20/2021 9:03 PM FIELD TRAINING AGENT) athologist Signature Glucose, POCT, 131 70 - 140 03/20/2021 [facility] B mg/dL 9:03 PM FIELD TRAINING AGENT Specimen Anatomical Collection Method Collection Time Receive d Time (Source) Location / / Volume Laterality Blood 03/20/2021 9:03 PM 9:11 FIELD TRAINING AGENT PM FIELD TRAINING AGENT Generic Rals LAB POCT ORDERABLES-MANUAL Performing Organization Address [facility] Phon e Number [facility]- [address] [place] [phone] [place] [address] Phosphorus Inorganic (03/20/2021 7:40 AM FIELD TRAINING AGENT) P athologist Signature Phosphorus 3.1 2.5 - 4.5 03/20/2021 [facility] (Inorganic), P mg/dL 8:31 AM FIELD TRAINING AGENT Specimen Anatomical Collection Method Collection Time Receive d Time (Source) Location / / Volume Laterality Blood 03/20/2021 7:40 AM 7:46 FIELD TRAINING AGENT AM FIELD TRAINING AGENT Keerthi Guzman M.D. LAB BLOOD ADD-ON Performing Organization Address City/[facility] Phon e Number [facility]- [address] [place] [phone] [place] [address] (ABNORMAL) Blood Gas with Coox, Venous (03/20/2021 7:40 AM FIELD TRAINING AGENT) Patholo gist Method Time Signature Venous pO2 56 Not applicable 03/20/2021 [facility] mm Hg 7:59 AM FIELD TRAINING AGENT Venous pCO2 30 (L) 41 - 51 mm Hg 03/20/2021 [facility] 7:59 AM FIELD TRAINING AGENT Venous pH 7.48 (H) 7.32 - 7.43 pH 03/20/2021 [facility] 7:59 AM FIELD TRAINING AGENT Venous Base -1 Not applicable 03/20/2021 [facility] Excess mmol/L 7:59 AM FIELD TRAINING AGENT HCO3 22 Not applicable 03/20/2021 [facility] mmol/L 7:59 AM FIELD TRAINING AGENT Hemoglobin, B 7.8 (L) 11.6 - 15.0 03/20/2021 [facility] g/dL 7:59 AM FIELD TRAINING AGENT O2Hb 88.2 Not applicable 03/20/2021 [facility] % 7:59 AM FIELD TRAINING AGENT COHb 1.8 <3.0 % 03/20/2021 [facility] 7:59 AM FIELD TRAINING AGENT MetHb 0.6 <1.5 % 03/20/2021 [facility] 7:59 AM FIELD TRAINING AGENT CtO2 9.7 Not Applicable 03/20/2021 [facility] vol % 7:59 AM FIELD TRAINING AGENT Specimen Anatomical Collection Method Collection Time Receive d Time (Source) Location / / Volume Laterality Blood (Blood, 03/20/2021 7:40 AM 03/20/20 7:46 Venous) FIELD TRAINING AGENT AM FIELD TRAINING AGENT Darian Thomas M.D., J.D. LAB BLOOD NON ADD-ON Performing Organization Address City/[facility]/ZIP Code Phon e Number [facility]- [address] [place] [phone] [place] [address] Magnesium (03/20/2021 7:40 AM FIELD TRAINING AGENT) P athologist Signature Magnesium, P 2.3 1.7 - 2.3 03/20/2021 [facility] mg/dL 8:31 AM FIELD TRAINING AGENT Specimen Anatomical Collection Method Collection Time Receive d Time (Source) Location / / Volume Laterality Blood 03/20/2021 7:40 AM 7:46 FIELD TRAINING AGENT AM FIELD TRAINING AGENT Keerthi Guzman M.D. LAB BLOOD ADD-ON Performing Organization Address City/[facility]/ZIP Code Phon e Number [facility]- [address] [place] [phone] [place] [address] Calcium, Ionized (03/20/2021 7:40 AM FIELD TRAINING AGENT) P athologist Signature Calcium, 5.07 4.65 - 5.30 03/20/2021 [facility] Ionized, B mg/dL 7:59 AM FIELD TRAINING AGENT Specimen Anatomical Collection Method Collection Time Receive d Time (Source) Location / / Volume Laterality Blood 03/20/2021 7:40 AM 7:46 FIELD TRAINING AGENT AM FIELD TRAINING AGENT Keerthi Guzman M.D. LAB BLOOD NON ADD-ON Performing Organization Address City/State/ZIP Code Phon e Number [facility]- [address] [place] [phone] [place] [address] (ABNORMAL) pH (03/20/2021 7:40 AM FIELD TRAINING AGENT) P athologist Signature pH 7.48 (H) 7.35 - 7.45 03/20/2021 [facility] pH 7:59 AM FIELD TRAINING AGENT Specimen Anatomical Collection Method Collection Time Receive d Time (Source) Location / / Volume Laterality Blood 03/20/2021 7:40 AM 1 7:46 FIELD TRAINING AGENT AM FIELD TRAINING AGENT Keerthi Guzman M.D. LAB HISTORICAL ORDERS Performing Organization Address City/[facility]/ZIP Code Phon e Number [facility]- [address] [place] [phone] [place] [address] [address] Lactate, B (03/20/2021 7:40 AM FIELD TRAINING AGENT) P athologist Signature Lactate, B 1.0 0.5 - 2.2 03/20/2021 [facility] mmol/L 7:59 AM FIELD TRAINING AGENT Specimen Anatomical Collection Method Collection Time Receive d Time (Source) Location / / Volume Laterality Blood 03/20/2021 7:40 AM 1 7:46 FIELD TRAINING AGENT AM FIELD TRAINING AGENT Keerthi Guzman M.D. LAB BLOOD NON ADD-ON Performing Organization Address City/[facility]/ZIP [place] Phon e Number [facility]- [address] [place] [phone] [place] [address] [address] (ABNORMAL) CBC without Differential (03/20/2021 7:40 AM FIELD TRAINING AGENT) Patholo gist Method Time Signature Hemoglobin 7.6 (L) 11.6 - 03/20/2021 [facility] 15.0 g/dL 8:13 AM FIELD TRAINING AGENT Hematocrit 23.4 (L) 35.5 - 03/20/2021 [facility] 44.9 % 8:13 AM FIELD TRAINING AGENT Erythrocytes 2.54 (L) 3.92 - 03/20/2021 [facility] 5.13 8:13 AM FIELD TRAINING AGENT x10(12)/L MCV 92.1 78.2 - 03/20/2021 [facility] 97.9 fL 8:13 AM FIELD TRAINING AGENT RBC Distrib Width 20.5 (H) 12.2 - 03/20/2021 [facility] 16.1 % 8:13 AM FIELD TRAINING AGENT Platelet Count 94 (L) 157 - 371 03/20/2021 [facility] x10(9)/L 8:13 AM FIELD TRAINING AGENT Leukocytes 5.9 3.4 - 9.6 03/20/2021 [facility] x10(9)/L 8:13 AM FIELD TRAINING AGENT Specimen Anatomical Collection Method Collection Time Receive d Time (Source) Location / / Volume Laterality Blood (Blood, 03/20/2021 7:40 AM 03/20/20 7:46 Venous) FIELD TRAINING AGENT AM FIELD TRAINING AGENT Keerthi Guzman M.D. LAB BLOOD ADD-ON Performing Organization Address City/State/ZIP Code Phon e Number [facility]- [address] [place] [phone] [place] [address] [place] [address] System in [place] [address] [place] [address] (ABNORMAL) Comprehensive Metabolic Panel (03/20/2021 7:40 AM FIELD TRAINING AGENT) Analysis Performed At Patho logist Time Signature Potassium, P 3.3 (L) 3.6 - 5.2 03/20/2021 [facility] mmol/L 8:31 AM FIELD TRAINING AGENT Sodium, P 142 135 - 145 03/20/2021 [facility] mmol/L 8:31 AM FIELD TRAINING AGENT Chloride, P 108 (H) 98 - 107 03/20/2021 [facility] mmol/L 8:31 AM FIELD TRAINING AGENT Bicarbonate, P 20 (L) 22 - 29 03/20/2021 [facility] mmol/L 8:31 AM FIELD TRAINING AGENT Anion Gap, P 14 7 - 15 03/20/2021 [facility] 8:31 AM FIELD TRAINING AGENT BUN (Blood Urea 4 (L) 6 - 21 03/20/2021 [facility] Nitrogen), P mg/dL 8:31 AM FIELD TRAINING AGENT Creatinine 0.35 (L) 0.59 - 03/20/2021 [facility] 1.04 mg/dL 8:31 AM FIELD TRAINING AGENT eGFR-Black/Afri >90 >=60 03/20/2021 [facility] can Belgian mL/min/BSA 8:32 AM FIELD TRAINING AGENT Comment: ----ADDITIONAL INFORMATION---- Estimated GFR calculated using the 2009 CKD_EPI creatinine equation. eGFR Non-Black/ >90 >=60 mL/min/BSA 03/20/2021 8:32 AM FIELD TRAINING AGENT [facility] Comment: ----ADDITIONAL INFORMATION---- Estimated GFR calculated using the 2009 CKD_EPI creatinine equation. Calcium, Total, P 10.2 (H) 8.6 - 10.0 mg/dL 03/20/2021 8:31 AM FIELD TRAINING AGENT [facility] Glucose, P 107 70 - 140 mg/dL 03/20/2021 8:31 AM FIELD TRAINING AGENT M [facility] Protein, Total, P 6.3 6.3 - 7.9 g/dL 03/20/2021 8:31 A M FIELD TRAINING AGENT [facility] Albumin, P 5.3 (H) 3.5 - 5.0 g/dL 03/20/2021 8:31 AM FIELD TRAINING AGENT M [facility] Aspartate Aminotransferase 38 8 - 43 U/L 03/20/2021 8 :31 AM FIELD TRAINING AGENT [facility] (AST), P Alkaline Phosphatase, P 50 35 - 104 U/L 03/20/2021 8: 31 AM FIELD TRAINING AGENT [facility] Alanine Aminotransferase 11 7 - 45 U/L 03/20/2021 8:3 1 AM FIELD TRAINING AGENT [facility] (ALT), P Bilirubin, Total, P 6.0 (H) <=1.2 mg/dL 03/20/2021 8:31 AM FIELD TRAINING AGENT [facility] Specimen Anatomical Collection Method Collection Time Receive d Time (Source) Location / / Volume Laterality Blood (Blood, 03/20/2021 7:40 AM 03/20/20 7:46 Venous) FIELD TRAINING AGENT AM FIELD TRAINING AGENT Keerthi Guzman M.D. LAB BLOOD ADD-ON Performing Organization Address City/State/ZIP Code Phon e Number [facility]- [address] [place] [phone] [place] [address] [place] [address] [address] (ABNORMAL) Prothrombin Time (PT) (03/20/2021 7:40 AM FIELD TRAINING AGENT) [facility] gist Method Time Signature Prothrombin 27.0 (H) 9.4 - 12.5 03/20/2021 [facility] Time, P sec 8:13 AM FIELD TRAINING AGENT INR 2.4 0.9 - 1.1 03/20/2021 TO 8:13 AM FIELD TRAINING AGENT Comment: ----ADDITIONAL INFORMATION---- Standard intensity warfarin therapeutic range: 2.0 to 3.0 ?? High intensity warfarin therapeutic rang e: 2.5 to 3.5 Specimen Anatomical Collection Method Collection Time Receive d Time (Source) Location / / Volume Laterality Blood (Blood, 03/20/2021 7:40 AM 03/20/20 7:46 Venous) FIELD TRAINING AGENT AM FIELD TRAINING AGENT Keerthi Guzman M.D. LAB BLOOD ADD-ON Performing Organization Address City/State/ZIP Code Phon e Number [facility]- [address] [place] [phone] [place] [address] Transfuse Fresh Frozen Plasma :INR >2: Invasive proc scheduled; 180 mL/hr (03/19/2021 6:37 PM FIELD TRAINING AGENT) Keerthi Guzman M.D. BLOOD TRANSFUSION ORDERABLES Transfuse Fresh Frozen Plasma :INR >2: Invasive proc scheduled; 180 mL/hr, 1 Units (03/19/2021 6:37 PM FIELD TRAINING AGENT) Keerthi Guzman M.D. BLOOD TRANSFUSION ORDERABLES Transfuse Red Blood Cells : (03/19/2021 3:21 PM FIELD TRAINING AGENT) Darian Thomas M.D., J.D. BLOOD TRANSFUSION ORDERAB LES Transfuse Red Blood Cells : , 1 Units (03/19/2021 3:21 PM FIELD TRAINING AGENT) Darian Thomas M.D., J.D. BLOOD TRANSFUSION ORDERAB LES (ABNORMAL) 25-Hydroxyvitamin D2 and D3 (03/19/2021 3:04 PM FIELD TRAINING AGENT) P athologist Signature 25-Hydroxy D2 <4.0 ng/mL 03/24/2021 SDSC 4:43 PM FIELD TRAINING AGENT 25-Hydroxy D3 3.2 ng/mL 03/24/2021 SDSC 4:43 PM FIELD TRAINING AGENT 25-Hydroxy D <6.0 (L) ng/mL 03/24/2021 SDSC Total 4:43 PM FIELD TRAINING AGENT Comment: Interpretation: <10 ng/mL (severe defici ency) ----REFERENCE VALUE---- 25-HYDROXY D TOTAL (D2+D3) Optimum level s in the healthy population are 20-50, patients with bone disease may benefit from higher levels within this r vinh. ----ADDITIONAL INFORMATION---- This test was developed and its performa nce characteristics determined by [facility] in a manner consistent with CLIA requirements. This test has not been cleared or approved by the [place] d and Drug Administration. Specimen Anatomical Collection Method Collection Time Receive d Time (Source) Location / / Volume Laterality Blood (Blood, 03/19/2021 3:04 PM 03/20/20 21 7:18 Venous) FIELD TRAINING AGENT AM FIELD TRAINING AGENT Keerthi Guzman M.D. LAB BLOOD ADD-ON Performing Organization Address City/[facility] Code Phon e Number [facility] [address] [place], [place] [address] [place], [place] [address]t[place] [address] Laboratory Medicine and Pathology [address] [place] Parathyroid Hormone (PTH) (03/19/2021 3:04 PM FIELD TRAINING AGENT) athologist Signature Parathyroid 44 15 - 65 03/19/2021 TO Hormone (PTH), S pg/mL 4:17 PM FIELD TRAINING AGENT Comment: Biotin has been identified by the [...] 03/19/2021 3:04 PM 03/19/20 21 3:09 Venous) FIELD TRAINING AGENT PM FIELD TRAINING AGENT Keerthi Guzman M.D. LAB BLOOD ADD-ON Performing Organization Address City/[facility] Code Phon e Number [facility] [address] [place] [phone] [place] [address] [place] [address] System in 13 [place] Street (ABNORMAL) pH (03/19/2021 3:04 PM FIELD TRAINING AGENT) athologist Signature pH 7.51 (H) 7.35 - 7.45 03/19/2021 [facility] pH 3:13 PM FIELD TRAINING AGENT Specimen Anatomical Collection Method Collection Time Receive d Time (Source) Location / / Volume Laterality Blood 03/19/2021 3:04 PM 1 3:09 FIELD TRAINING AGENT PM FIELD TRAINING AGENT Darian Thomas M.D., J.D. LAB HISTORICAL ORDERS Performing Organization Address City/State/ZIP Code Phon e Number [facility]- [address] [place] [phone] [place] [address] System in [place] [address] [place] [address] Calcium, Ionized (03/19/2021 3:04 PM FIELD TRAINING AGENT) athologist Signature Calcium, 4.88 4.65 - 5.30 03/19/2021 [facility] Ionized, B mg/dL 3:13 PM FIELD TRAINING AGENT Specimen Anatomical Collection Method Collection Time Receive d Time (Source) Location / / Volume Laterality Blood 03/19/2021 3:04 PM 3:09 FIELD TRAINING AGENT PM FIELD TRAINING AGENT Darian Thomas M.D., J.D. LAB BLOOD NON ADD-ON Performing Organization Address City/[facility]/ZIP Code Phon e Number [facility]- [address] [place] [phone] [place] [address] System in [place] [address] [place] [address] (ABNORMAL) Potassium (03/19/2021 3:04 PM FIELD TRAINING AGENT) athologist Signature Potassium, P 3.5 (L) 3.6 - 5.2 03/19/2021 [facility] mmol/L 3:36 PM FIELD TRAINING AGENT Specimen Anatomical Collection Method Collection Time Receive d Time (Source) Location / / Volume Laterality Blood (Blood, 03/19/2021 3:04 PM 03/19/20 21 3:09 Venous) FIELD TRAINING AGENT PM FIELD TRAINING AGENT Keerthi Guzman M.D. LAB BLOOD ADD-ON Performing Organization Address City/[facility]/ZIP Code Phon e Number [facility]- [address] [place] [phone] [place] [address] (TTE) 2D ECHO DOPPLER COLOR AND CONTRAST (03/19/2021 12:39 PM FIELD TRAINING AGENT) [facility] Method Time Signature Ejection Fraction 68 MC [...] / / Volume Laterality 03/19/2021 10:58 AM FIELD TRAINING AGENT Impressions 03/19/2021 12:59 PM FIELD TRAINING AGENT Echo performed at the patient's bedside. ??Hemoglobin [...] effusion. For the complete report, see the [employer] Documents. Narrative 03/19/2021 12:59 PM FIELD TRAINING AGENT For the complete report, see the [employer] Documents. Final Impressions 1. Positive for atrial [...] 2020 For the complete report, see the [employer] Documents. Final Impressions 1. Positive for atrial [...] ECHO PROCEDURES (ABNORMAL) Ammonia (03/19/2021 7:39 AM FIELD TRAINING AGENT) athologist Signature Ammonia, P 65 (H) <=51 03/19/2021 [facility] mcmol/L 8:26 AM FIELD TRAINING AGENT Specimen Anatomical Collection Method Collection Time Receive d Time (Source) Location / / Volume Laterality Blood (Blood, 03/19/2021 7:39 AM 03/19/20 8:06 Venous) FIELD TRAINING AGENT AM FIELD TRAINING AGENT Darian Thomas M.D., J.D. LAB BLOOD NON ADD-ON Performing Organization Address [facility] Phon e Number [facility]- [address] [place] [phone] [facility] [place] [phone] System [address] (ABNORMAL) Phosphorus Inorganic (03/19/2021 7:39 AM FIELD TRAINING AGENT) athologist Signature Phosphorus 1.8 (L) 2.5 - 4.5 03/19/2021 [place] (Inorganic), P mg/dL 8:32 AM FIELD TRAINING AGENT Specimen Anatomical Collection Method Collection Time Receive d Time (Source) Location / / Volume Laterality Blood (Blood, 03/19/2021 7:39 AM 03/19/20 7:57 Venous) FIELD TRAINING AGENT AM FIELD TRAINING AGENT Darian Thomas M.D., J.D. LAB BLOOD ADD-ON Performing Organization Address [facility] Phon e Number [address] [phone] [facility] [place] [phone] (ABNORMAL) Magnesium (03/19/2021 7:39 AM FIELD TRAINING AGENT) athologist Signature Magnesium, P 1.5 (L) 1.7 - 2.3 03/19/2021 [place] mg/dL 8:32 AM FIELD TRAINING AGENT Specimen Anatomical Collection Method Collection Time Receive d Time (Source) Location / / Volume Laterality Blood (Blood, 03/19/2021 7:39 AM 03/19/20 7:57 Venous) FIELD TRAINING AGENT AM FIELD TRAINING AGENT Darian Thomas M.D., J.D. LAB BLOOD ADD-ON Performing Organization Address City/State/ZIP Code Phon e Number [facility]- [address] [place] [address] [place] [address] System in [place] [address] [facility] (ABNORMAL) Comprehensive Metabolic Panel (03/19/2021 7:39 AM FIELD TRAINING AGENT) Analysis Performed At Patho logist Time Signature Potassium, P 3.1 (L) 3.6 - 5.2 03/19/2021 [place] mmol/L 8:32 AM FIELD TRAINING AGENT Sodium, P 140 135 - 145 03/19/2021 [place] mmol/L 8:32 AM FIELD TRAINING AGENT Chloride, P 102 98 - 107 03/19/2021 [place] mmol/L 8:32 AM FIELD TRAINING AGENT Bicarbonate, P 19 (L) 22 - 29 03/19/2021 [facility] mmol/L 8:32 AM FIELD TRAINING AGENT Anion Gap, P 19 (H) 7 - 15 03/19/2021 [facility] 8:32 AM FIELD TRAINING AGENT BUN (Blood Urea 6 6 - 21 03/19/2021 [facility] Nitrogen), P mg/dL 8:32 AM FIELD TRAINING AGENT Creatinine 0.33 (L) 0.59 - 03/19/2021 [facility] 1.04 mg/dL 8:32 AM FIELD TRAINING AGENT eGFR-Black/Afri >90 >=60 03/19/2021 [facility] can Belgian mL/min/BSA 8:32 AM FIELD TRAINING AGENT Comment: ----ADDITIONAL INFORMATION---- Estimated GFR calculated using the 2009 CKD_EPI creatinine equation. eGFR Non-Black/ >90 >=60 mL/min/BSA 03/19/2021 8:32 AM FIELD TRAINING AGENT MK[facility] Comment: ----ADDITIONAL INFORMATION---- Estimated GFR calculated using the 2009 CKD_EPI creatinine equation. Calcium, Total, P 10.6 (H) 8.6 - 10.0 mg/dL 03/19/2021 8:32 AM FIELD TRAINING AGENT [facility] Glucose, P 116 70 - 140 mg/dL 03/19/2021 8:32 AM FIELD TRAINING AGENT M KTO Protein, Total, P 6.9 6.3 - 7.9 g/dL 03/19/2021 8:32 A M FIELD TRAINING AGENT [facility] Albumin, P 6.7 (H) 3.5 - 5.0 g/dL 03/19/2021 9:07 AM FIELD TRAINING AGENT M KTO Aspartate Aminotransferase 33 8 - 43 U/L 03/19/2021 8 :32 AM FIELD TRAINING AGENT [facility] (AST), P Alkaline Phosphatase, P 43 35 - 104 U/L 03/19/2021 8: 32 AM FIELD TRAINING AGENT [facility] Alanine Aminotransferase 10 7 - 45 U/L 03/19/2021 8:3 2 AM FIELD TRAINING AGENT [place] (ALT), P Bilirubin, Total, P 6.6 (H) <=1.2 mg/dL 03/19/2021 8:32 AM FIELD TRAINING AGENT [facility] Specimen Anatomical Collection Method Collection Time Receive d Time (Source) Location / / Volume Laterality Blood (Blood, 03/19/2021 7:39 AM 03/19/20 7:57 Venous) FIELD TRAINING AGENT AM FIELD TRAINING AGENT Darian Thomas M.D., J.D. LAB BLOOD ADD-ON Performing Organization Address [facility] Phon e Number [address] [phone] [facility] [place] [phone] System [address] (ABNORMAL) Prothrombin Time (PT) (03/19/2021 7:39 AM FIELD TRAINING AGENT) [facility] gist Method Time Signature Prothrombin 28.4 (H) 9.4 - 12.5 03/19/2021 [facility] Time, P sec 8:10 AM FIELD TRAINING AGENT INR 2.5 0.9 - 1.1 03/19/2021 [facility] 8:10 AM FIELD TRAINING AGENT Comment: ----ADDITIONAL INFORMATION---- Standard intensity warfarin therapeutic range: 2.0 to 3.0 ?? High intensity warfarin therapeutic rang e: 2.5 to 3.5 Specimen Anatomical Collection Method Collection Time Receive d Time (Source) Location / / Volume Laterality Blood (Blood, 03/19/2021 7:39 AM 03/19/20 7:57 Venous) FIELD TRAINING AGENT AM FIELD TRAINING AGENT Darian Thomas M.D., J.D. LAB BLOOD ADD-ON Performing Organization Address [facility] Phon e Number [address] [phone] [place] [address] (ABNORMAL) CBC with Differential, Blood (03/19/2021 7:39 AM FIELD TRAINING AGENT) [facility] gist Method Time Signature Hemoglobin 6.8 (L) 11.6 - 03/19/2021 [facility] 15.0 g/dL 8:05 AM FIELD TRAINING AGENT Hematocrit 20.4 (L) 35.5 - 03/19/2021 [facility] 44.9 % 8:05 AM FIELD TRAINING AGENT Erythrocytes 2.25 (L) 3.92 - 03/19/2021 [facility] 5.13 8:05 AM FIELD TRAINING AGENT x10(12)/L MCV 90.7 78.2 - 03/19/2021 [facility] 97.9 fL 8:05 AM FIELD TRAINING AGENT RBC Distrib Width 20.7 (H) 12.2 - 03/19/2021 [facility] 16.1 % 8:05 AM FIELD TRAINING AGENT Platelet Count 92 (L) 157 - 371 03/19/2021 [facility] x10(9)/L 8:05 AM FIELD TRAINING AGENT Leukocytes 5.6 3.4 - 9.6 03/19/2021 [facility] x10(9)/L 8:05 AM FIELD TRAINING AGENT Neutrophils 3.54 1.56 - 03/19/2021 [facility] 6.45 8:05 AM FIELD TRAINING AGENT x10(9)/L Lymphocytes 1.31 0.95 - 03/19/2021 [facility] 3.07 8:05 AM FIELD TRAINING AGENT x10(9)/L Monocytes 0.64 0.26 - 03/19/2021 [facility] 0.81 8:05 AM FIELD TRAINING AGENT x10(9)/L Eosinophils 0.07 0.03 - 03/19/2021 [facility] 0.48 8:05 AM FIELD TRAINING AGENT x10(9)/L Basophils <0.03 0.01 - 03/19/2021 [facility] 0.08 8:05 AM FIELD TRAINING AGENT x10(9)/L Specimen Anatomical Collection Method Collection Time Receive d Time (Source) Location / / Volume Laterality Blood (Blood, 03/19/2021 7:39 AM 03/19/20 7:57 Venous) FIELD TRAINING AGENT AM FIELD TRAINING AGENT Darian Thomas M.D., J.D. LAB BLOOD ADD-ON Performing Organization Address City/State/ZIP Code Phon e Number [facility]- [address] [place] [address] [place] [address] System in [place] [address] [place] [address] (ABNORMAL) Bilirubin, Direct (03/19/2021 7:38 AM FIELD TRAINING AGENT) P athologist Signature Bilirubin, 1.6 (H) 0.0 - 0.3 03/19/2021 [facility] Direct, P mg/dL 1:13 PM FIELD TRAINING AGENT Specimen Anatomical Collection Method Collection Time Receive d Time (Source) Location / / Volume Laterality Blood (Blood, 03/19/2021 7:38 AM 03/19/20 21 Venous) FIELD TRAINING AGENT 12:25 PM FIELD TRAINING AGENT Keerthi Guzman M.D. LAB BLOOD ADD-ON Performing Organization Address City/State/ZIP Code Phon e Number [facility]- [address] [place] [phone] [place] [address] [place] [address] ECG 12 Lead (03/19/2021 6:44 AM FIELD TRAINING AGENT) athologist Signature Ventricular Rate 108 BPM MUSE ECG/Min SC Interval 156 ms MUSE QRSD Interval 82 ms MUSE QT Interval 298 ms MUSE QTC Interval 399 ms MUSE P Winston 43 degrees MUSE R Winston 41 degrees MUSE T Wave Winston -17 degrees MUSE Specimen Anatomical Collection Method Collection Time Receive d Time (Source) Location / / Volume Laterality 03/19/2021 6:44 AM 6:49 FIELD TRAINING AGENT AM FIELD TRAINING AGENT Impressions MUSE - 03/19/2021 6:49 AM FIELD TRAINING AGENT Sinus tachycardia Nonspecific T wave abnormality When [...] MUSE NA (ABNORMAL) Hemoglobin (03/18/2021 7:00 PM FIELD TRAINING AGENT) athologist Signature Hemoglobin 7.6 (L) 11.6 - 15.0 03/18/2021 [facility] g/dL 7:07 PM FIELD TRAINING AGENT Specimen Anatomical Collection Method Collection Time Receive d Time (Source) Location / / Volume Laterality Blood (Blood, 03/18/2021 7:00 PM 03/18/20 21 7:03 Venous) FIELD TRAINING AGENT PM FIELD TRAINING AGENT Darian Thomas M.D., J.D. LAB BLOOD ADD-ON Performing Organization Address [facility] Phon e Number [facility]- [address] [place] [phone] [place] [address] (ABNORMAL) Ammonia (03/18/2021 6:59 PM FIELD TRAINING AGENT) athologist Signature Ammonia, P 55 (H) <=51 03/18/2021 [facility] mcmol/L 7:23 PM FIELD TRAINING AGENT Specimen Anatomical Collection Method Collection Time Receive d Time (Source) Location / / Volume Laterality Blood (Blood, 03/18/2021 6:59 PM 03/18/20 21 7:03 Venous) FIELD TRAINING AGENT PM FIELD TRAINING AGENT Darian Thomas M.D., J.D. LAB BLOOD NON ADD-ON Performing Organization Address [facility] Phon e Number [address] [phone] [place] [address] (ABNORMAL) Prothrombin Time (PT) (03/18/2021 8:35 AM FIELD TRAINING AGENT) [facility] gist Method Time Signature Prothrombin 28.8 (H) 9.4 - 12.5 03/18/2021 [facility] Time, P sec 9:20 AM FIELD TRAINING AGENT INR 2.6 0.9 - 1.1 03/18/2021 [facility] 9:20 AM FIELD TRAINING AGENT Comment: ----ADDITIONAL INFORMATION---- Standard intensity warfarin therapeutic range: 2.0 to 3.0 ?? High intensity warfarin therapeutic rang e: 2.5 to 3.5 Specimen Anatomical Collection Method Collection Time Receive d Time (Source) Location / / Volume Laterality Blood (Blood, 03/18/2021 8:35 AM 03/18/20 8:41 Venous) FIELD TRAINING AGENT AM FIELD TRAINING AGENT Darian Thomas M.D., J.D. LAB BLOOD ADD-ON Performing Organization Address City/State/ZIP Code Phon e Number [facility]- [facility] [place] [address] [place] [address] System in [place] [address] [facility] (ABNORMAL) Comprehensive Metabolic Panel (03/18/2021 8:35 AM FIELD TRAINING AGENT) Analysis Performed At Patho logist Time Signature Potassium, P 3.1 (L) 3.6 - 5.2 03/18/2021 [place] mmol/L 9:07 AM FIELD TRAINING AGENT Sodium, P 141 135 - 145 03/18/2021 [facility] mmol/L 9:07 AM FIELD TRAINING AGENT Chloride, P 106 98 - 107 03/18/2021 [facility] mmol/L 9:07 AM FIELD TRAINING AGENT Bicarbonate, P 20 (L) 22 - 29 03/18/2021 [facility] mmol/L 9:07 AM FIELD TRAINING AGENT Anion Gap, P 15 7 - 15 03/18/2021 [facility] 9:07 AM FIELD TRAINING AGENT BUN (Blood Urea 7 6 - 21 03/18/2021 [facility] Nitrogen), P mg/dL 9:07 AM FIELD TRAINING AGENT Creatinine 0.32 (L) 0.59 - 03/18/2021 [facility] 1.04 mg/dL 9:07 AM FIELD TRAINING AGENT eGFR-Black/Afri >90 >=60 03/18/2021 MKTO can Belgian mL/min/BSA 9:07 AM FIELD TRAINING AGENT Comment: ----ADDITIONAL INFORMATION---- Estimated GFR calculated using the 2009 CKD_EPI creatinine equation. eGFR Non-Black/ >90 >=60 mL/min/BSA 03/18/2021 9:07 AM FIELD TRAINING AGENT MKTO Comment: ----ADDITIONAL INFORMATION---- Estimated GFR calculated using the 2009 CKD_EPI creatinine equation. Calcium, Total, P 10.2 (H) 8.6 - 10.0 mg/dL 03/18/2021 9:07 AM FIELD TRAINING AGENT MKTO Glucose, P 109 70 - 140 mg/dL 03/18/2021 9:07 AM FIELD TRAINING AGENT M KTO Protein, Total, P 6.3 6.3 - 7.9 g/dL 03/18/2021 9:07 A M FIELD TRAINING AGENT [facility] Albumin, P 5.4 (H) 3.5 - 5.0 g/dL 03/18/2021 9:07 AM FIELD TRAINING AGENT M KTO Aspartate Aminotransferase 32 8 - 43 U/L 03/18/2021 9 :07 AM FIELD TRAINING AGENT [facility] (AST), P Alkaline Phosphatase, P 42 35 - 104 U/L 03/18/2021 9: 07 AM FIELD TRAINING AGENT MK[facility] Alanine Aminotransferase 8 7 - 45 U/L 03/18/2021 9:0 7 AM FIELD TRAINING AGENT [facility] (ALT), P Bilirubin, Total, P 7.7 (H) <=1.2 mg/dL 03/18/2021 9:07 AM FIELD TRAINING AGENT MK[facility] Specimen Anatomical Collection Method Collection Time Receive d Time (Source) Location / / Volume Laterality Blood (Blood, 03/18/2021 8:35 AM 03/18/20 8:41 Venous) FIELD TRAINING AGENT AM FIELD TRAINING AGENT Darian Thomas M.D., J.D. LAB BLOOD ADD-ON Performing Organization Address City/State/ZIP Code Phon e Number [facility]- [address] [place] [address] [place] [address] (ABNORMAL) CBC with Differential, Blood (03/18/2021 8:35 AM FIELD TRAINING AGENT) [facility] Method Time Signature Hemoglobin 7.1 (L) 11.6 - 03/18/2021 [facility] 15.0 g/dL 8:46 AM FIELD TRAINING AGENT Hematocrit 21.3 (L) 35.5 - 03/18/2021 [facility] 44.9 % 8:46 AM FIELD TRAINING AGENT Erythrocytes 2.44 (L) 3.92 - 03/18/2021 [facility] 5.13 8:46 AM FIELD TRAINING AGENT x10(12)/L MCV 87.3 78.2 - 03/18/2021 [facility] 97.9 fL 8:46 AM FIELD TRAINING AGENT RBC Distrib Width 19.8 (H) 12.2 - 03/18/2021 [facility] 16.1 % 8:46 AM FIELD TRAINING AGENT Platelet Count 77 (L) 157 - 371 03/18/2021 [facility] x10(9)/L 8:46 AM FIELD TRAINING AGENT Leukocytes 6.2 3.4 - 9.6 03/18/2021 [facility] x10(9)/L 8:46 AM FIELD TRAINING AGENT Neutrophils 3.96 1.56 - 03/18/2021 [facility] 6.45 8:46 AM FIELD TRAINING AGENT x10(9)/L Lymphocytes 1.35 0.95 - 03/18/2021 [facility] 3.07 8:46 AM FIELD TRAINING AGENT x10(9)/L Monocytes 0.74 0.26 - 03/18/2021 [facility] 0.81 8:46 AM FIELD TRAINING AGENT x10(9)/L Eosinophils 0.08 0.03 - 03/18/2021 MK[facility] 0.48 8:46 AM FIELD TRAINING AGENT x10(9)/L Basophils <0.03 0.01 - 03/18/2021 [facility] 0.08 8:46 AM FIELD TRAINING AGENT x10(9)/L Specimen Anatomical Collection Method Collection Time Receive d Time (Source) Location / / Volume Laterality Blood (Blood, 03/18/2021 8:35 AM 03/18/20 8:41 Venous) FIELD TRAINING AGENT AM FIELD TRAINING AGENT Darian Thomas M.D., J.D. LAB BLOOD ADD-ON Performing Organization Address City/[facility] Phon e Number [facility]- [address] [place] [phone] [place] [address] Magnesium (03/17/2021 6:35 AM FIELD TRAINING AGENT) P athologist Signature Magnesium, P 1.7 1.7 - 2.3 03/17/2021 [facility] mg/dL 7:24 AM FIELD TRAINING AGENT Specimen Anatomical Collection Method Collection Time Receive d Time (Source) Location / / Volume Laterality Blood (Blood, 03/17/2021 6:35 AM 03/17/20 6:43 Venous) FIELD TRAINING AGENT AM FIELD TRAINING AGENT Ulises Santillan LAB BLOOD ADD-ON Performing Organization Address City/[facility] Phon e Number [facility]- [address] [place] [phone] [place] [address] (ABNORMAL) Basic Metabolic Panel (03/17/2021 6:35 AM FIELD TRAINING AGENT) Analysis Performed At Patho logist Time Signature Potassium, P 3.7 3.6 - 5.2 03/17/2021 [facility] mmol/L 7:24 AM FIELD TRAINING AGENT Sodium, P 141 135 - 145 03/17/2021 [facility] mmol/L 7:24 AM FIELD TRAINING AGENT Chloride, P 106 98 - 107 03/17/2021 [facility] mmol/L 7:24 AM FIELD TRAINING AGENT Bicarbonate, P 21 (L) 22 - 29 03/17/2021 [facility] mmol/L 7:24 AM FIELD TRAINING AGENT Anion Gap, P 14 7 - 15 03/17/2021 MKTO 7:24 AM FIELD TRAINING AGENT BUN (Blood Urea 5 (L) 6 - 21 03/17/2021 MK[facility] Nitrogen), P mg/dL 7:24 AM FIELD TRAINING AGENT Creatinine 0.35 (L) 0.59 - 03/17/2021 [facility] 1.04 mg/dL 7:24 AM FIELD TRAINING AGENT eGFR-Black/Afri >90 >=60 03/17/2021 MKTO can Belgian mL/min/BSA 7:24 AM FIELD TRAINING AGENT Comment: ----ADDITIONAL INFORMATION---- Estimated GFR calculated using the 2009 CKD_EPI creatinine equation. eGFR Non-Black/ >90 >=60 mL/min/BSA 03/17/2021 7:24 AM FIELD TRAINING AGENT MKTO Comment: ----ADDITIONAL INFORMATION---- Estimated GFR calculated using the 2009 CKD_EPI creatinine equation. Calcium, Total, P 9.7 8.6 - 10.0 mg/dL 03/17/2021 7:24 AM FIELD TRAINING AGENT MK[facility] Glucose, P 116 70 - 140 mg/dL 03/17/2021 7:24 AM FIELD TRAINING AGENT M KTO Specimen Anatomical Collection Method Collection Time Receive d Time (Source) Location / / Volume Laterality Blood (Blood, 03/17/2021 6:35 AM 03/17/20 6:43 Venous) FIELD TRAINING AGENT AM FIELD TRAINING AGENT Harish Ansari P.A.-C., M.S. LAB BLOOD ADD-ON Performing Organization Address City/State/ZIP Code Phon e Number [facility]- [address] [place] [phone] [place] [address] (ABNORMAL) CBC with Differential, Blood (03/17/2021 6:35 AM FIELD TRAINING AGENT) [facility] gist Method Time Signature Hemoglobin 7.7 (L) 11.6 - 03/17/2021 MK[facility] 15.0 g/dL 6:58 AM FIELD TRAINING AGENT Hematocrit 22.3 (L) 35.5 - 03/17/2021 MKTO 44.9 % 6:58 AM FIELD TRAINING AGENT Erythrocytes 2.56 (L) 3.92 - 03/17/2021 [facility] 5.13 6:58 AM FIELD TRAINING AGENT x10(12)/L MCV 87.1 78.2 - 03/17/2021 [facility] 97.9 fL 6:58 AM FIELD TRAINING AGENT RBC Distrib Width 19.3 (H) 12.2 - 03/17/2021 MK[facility] 16.1 % 6:58 AM FIELD TRAINING AGENT Platelet Count 68 (L) 157 - 371 03/17/2021 [facility] x10(9)/L 6:58 AM FIELD TRAINING AGENT Leukocytes 6.1 3.4 - 9.6 03/17/2021 [facility] x10(9)/L 6:58 AM FIELD TRAINING AGENT Neutrophils 3.82 1.56 - 03/17/2021 MK[facility] 6.45 6:58 AM FIELD TRAINING AGENT x10(9)/L Lymphocytes 1.39 0.95 - 03/17/2021 [facility] 3.07 6:58 AM FIELD TRAINING AGENT x10(9)/L Monocytes 0.77 0.26 - 03/17/2021 MK[facility] 0.81 6:58 AM FIELD TRAINING AGENT x10(9)/L Eosinophils 0.05 0.03 - 03/17/2021 MKTO 0.48 6:58 AM FIELD TRAINING AGENT x10(9)/L Basophils <0.03 0.01 - 03/17/2021 MKTO 0.08 6:58 AM FIELD TRAINING AGENT x10(9)/L Specimen Anatomical Collection Method Collection Time Receive d Time (Source) Location / / Volume Laterality Blood (Blood, 03/17/2021 6:35 AM 03/17/20 6:42 Venous) FIELD TRAINING AGENT AM FIELD TRAINING AGENT Harish Ansari P.A.-C., M.S. LAB BLOOD ADD-ON Performing Organization Address City/State/ZIP Code Phon e Number [facility]- [address] [place] [address] [place] [address] (ABNORMAL) Hematocrit (03/16/2021 4:14 PM FIELD TRAINING AGENT) P athologist Signature Hematocrit 23.7 (L) 35.5 - 44.9 03/16/2021 MKTO % 4:25 PM FIELD TRAINING AGENT Specimen Anatomical Collection Method Collection Time Receive d Time (Source) Location / / Volume Laterality Blood (Blood, 03/16/2021 4:14 PM 03/16/20 4:23 Venous) FIELD TRAINING AGENT PM FIELD TRAINING AGENT Lizet Navarro M.D. LAB BLOOD ADD-ON Performing Organization Address City/State/ZIP Code Phon e Number [address] [address] [place] [address] (ABNORMAL) Hemoglobin (03/16/2021 4:14 PM FIELD TRAINING AGENT) P athologist Signature Hemoglobin 8.2 (L) 11.6 - 15.0 03/16/2021 MKTO g/dL 4:25 PM FIELD TRAINING AGENT Specimen Anatomical Collection Method Collection Time Receive d Time (Source) Location / / Volume Laterality Blood (Blood, 03/16/2021 4:14 PM 03/16/20 4:23 Venous) FIELD TRAINING AGENT PM FIELD TRAINING AGENT Lizet Navarro M.D. LAB BLOOD ADD-ON Performing Organization Address City/State/ZIP Code Phon e Number [address] [phone] [place] [address] [address] (ABNORMAL) Hematocrit (03/16/2021 12:58 PM FIELD TRAINING AGENT) P athologist Signature Hematocrit 24.8 (L) 35.5 - 44.9 03/16/2021 MKTO % 1:27 PM FIELD TRAINING AGENT Specimen Anatomical Collection Method Collection Time Receive d Time (Source) Location / / Volume Laterality Blood (Blood, 03/16/2021 12:58 03/16/2021 1:04 Venous) PM FIELD TRAINING AGENT PM FIELD TRAINING AGENT Lizet Navarro M.D. LAB BLOOD ADD-ON Performing Organization Address City/State/ZIP Code Phon e Number [facility] [address] [place] [phone] [place] [address] (ABNORMAL) Hemoglobin (03/16/2021 12:58 PM FIELD TRAINING AGENT) P athologist Signature Hemoglobin 8.3 (L) 11.6 - 15.0 03/16/2021 [facility] g/dL 1:27 PM FIELD TRAINING AGENT Specimen Anatomical Collection Method Collection Time Receive d Time (Source) Location / / Volume Laterality Blood (Blood, 03/16/2021 12:58 03/16/2021 1:04 Venous) PM FIELD TRAINING AGENT PM FIELD TRAINING AGENT Lizet Navarro M.D. LAB BLOOD ADD-ON Performing Organization Address City/State/ZIP Code Phon e Number [facility]- [address] [place] [phone] [place] [address] Trans[employer]use Red Blood Cells : (03/16/2021 11:58 AM FIELD TRAINING AGENT) Lizet Navarro M.D. BLOOD TRANSFUSION ORDERABLES [employer] Red Blood Cells : , 2 Units (03/16/2021 11:58 AM FIELD TRAINING AGENT) Lizet Navarro M.D. BLOOD TRANSFUSION ORDERABLES [employer] Red Blood Cells : (03/16/2021 11:08 AM FIELD TRAINING AGENT) Lizet Navarro M.D. BLOOD TRANSFUSION ORDERABLES [employer] Fresh Frozen Plasma :Bleeding with altered coagulation; 180 mL/hr (03/16/2021 10:21 AM FIELD TRAINING AGENT) Lizet Navarro M.D. BLOOD TRANSFUSION ORDERABLES [employer] Fresh Frozen Plasma :Bleeding with altered coagulation; 180 mL/hr, 2 Units (03/16/2021 10:21 AM FIELD TRAINING AGENT) Lizet Navarro M.D. BLOOD TRANSFUSION ORDERABLES Transfuse Fresh Frozen Plasma :Bleeding with altered coagulation; 180 mL/hr (03/16/2021 10:20 AM FIELD TRAINING AGENT) Lizet Navarro M.D. BLOOD TRANSFUSION ORDERABLES Transfuse Red Blood Cells : (03/16/2021 9:06 AM FIELD TRAINING AGENT) Nola Huitron APRN, C.N.P., M.S.N. BLOOD TRANSFUSI ON ORDERABLES Transfuse Red Blood Cells : , 1 Units (03/16/2021 9:06 AM FIELD TRAINING AGENT) Nola Huitron APRN, C.N.P., M.S.N. BLOOD TRANSFUSI ON ORDERABLES (ABNORMAL) Fibrinogen (03/16/2021 7:32 AM FIELD TRAINING AGENT) P athologist Signature Fibrinogen, P 135 (L) 200 - 393 03/16/2021 [facility] mg/dL 7:56 AM FIELD TRAINING AGENT Specimen Anatomical Collection Method Collection Time Receive d Time (Source) Location / / Volume Laterality Blood (Blood, 03/16/2021 7:32 AM 03/16/20 7:40 Venous) FIELD TRAINING AGENT AM FIELD TRAINING AGENT Tariq CheryB.S. LAB BLOOD ADD-ON Performing Organization Address City/[facility]/ZIP Code Phon e Number [address] [place] [address] (ABNORMAL) APTT (Activated Partial Thromboplastin Time) (03/16/2021 7:32 AM FIELD TRAINING AGENT) P athologist Signature Activated 54 (H) 25 - 37 03/16/2021 [facility] Partial sec 7:53 AM FIELD TRAINING AGENT Thrombopl Time, P Specimen Anatomical Collection Method Collection Time Receive d Time (Source) Location / / Volume Laterality Blood (Blood, 03/16/2021 7:32 AM 03/16/20 7:40 Venous) FIELD TRAINING AGENT AM FIELD TRAINING AGENT Tariq CheryB.S. LAB BLOOD ADD-ON Performing Organization Address City/[facility] Phon e Number [address] [place] [address] (ABNORMAL) Prothrombin Time (PT) (03/16/2021 7:32 AM FIELD TRAINING AGENT) Patholo gist Method Time Signature Prothrombin 23.4 (H) 9.4 - 12.5 03/16/2021 [facility] Time, P sec 7:51 AM FIELD TRAINING AGENT INR 2.1 0.9 - 1.1 03/16/2021 [facility] 7:51 AM FIELD TRAINING AGENT Comment: ----ADDITIONAL INFORMATION---- Standard intensity warfarin therapeutic range: 2.0 to 3.0 ?? High intensity warfarin therapeutic rang e: 2.5 to 3.5 Specimen Anatomical Collection Method Collection Time Receive d Time (Source) Location / / Volume Laterality Blood (Blood, 03/16/2021 7:32 AM 03/16/20 7:40 Venous) FIELD TRAINING AGENT AM FIELD TRAINING AGENT Tariq DanielS. LAB BLOOD ADD-ON Performing Organization Address City/[facility]/ZIP Code Phon e Number [facility]- [address] [place] [phone] [place] [address] (ABNORMAL) Hemoglobin (03/16/2021 7:31 AM FIELD TRAINING AGENT) P athologist Signature Hemoglobin 5.3 (CL) 11.6 - 15.0 03/16/2021 [facility] g/dL 7:57 AM FIELD TRAINING AGENT Specimen Anatomical Collection Method Collection Time Receive d Time (Source) Location / / Volume Laterality Blood (Blood, 03/16/2021 7:31 AM 03/16/20 7:40 Venous) FIELD TRAINING AGENT AM FIELD TRAINING AGENT Tariq Santoyo.S. LAB BLOOD ADD-ON Performing Organization Address City/[facility]/ZIP Code Phon e Number [facility]- [address] [place] [phone] [place] [address] Testing Location (03/16/2021 5:44 AM FIELD TRAINING AGENT) P athologist Signature Testing [facility] DEFAULT 03/16/2021 [facility] Location 5:50 AM FIELD TRAINING AGENT Specimen Anatomical Collection Method Collection Time Receive d Time (Source) Location / / Volume Laterality Blood 03/16/2021 5:44 AM 5:49 FIELD TRAINING AGENT AM FIELD TRAINING AGENT Tariq Santoyo.S. LAB BLOOD BANK TEST ORDERABL ES Performing Organization Address City/State/ZIP Code Phon e Number [facility]- [address] [place] [phone] [place] [address] Type and Screen (with reflex Antibody ID) (03/16/2021 5:44 AM FIELD TRAINING AGENT) Patholo gist Method Time Signature ABO Group B 03/16/2021 MKTO 6:49 AM FIELD TRAINING AGENT Rh Type POS 03/16/2021 [facility] 6:49 AM FIELD TRAINING AGENT Antibody Screen NEG 03/16/2021 [facility] 6:49 AM FIELD TRAINING AGENT Type & Screen 03/19/2021 03/16/2021 [facility] Expiration 23:59 6:49 AM FIELD TRAINING AGENT ELXM Eligible Y 03/16/2021 [facility] 6:49 AM FIELD TRAINING AGENT Specimen Anatomical Collection Method Collection Time Receive d Time (Source) Location / / Volume Laterality Blood (Blood, 03/16/2021 5:44 AM 03/16/20 5:49 Venous) FIELD TRAINING AGENT AM FIELD TRAINING AGENT Tariq Santillan LAB BLOOD BANK TEST ORDERABL ES Performing Organization Address [facility] Phon e Number [facility]- [address] [place] [phone] [place] [address] [place] [address] Glucose, POCT (03/16/2021 5:43 AM FIELD TRAINING AGENT) P athologist Signature Glucose, POCT, 121 70 - 140 03/16/2021 MK[facility] B mg/dL 5:43 AM FIELD TRAINING AGENT Specimen Anatomical Collection Method Collection Time Receive d Time (Source) Location / / Volume Laterality Blood 03/16/2021 5:43 AM 5:57 FIELD TRAINING AGENT AM FIELD TRAINING AGENT Generic Rals LAB POCT ORDERABLES-MANUAL Performing Organization Address City/[facility]/ZIP [place] Phon e Number [facility]- [address] [place] [phone] [place] [address] Transfuse Fresh Frozen Plasma :Bleeding with altered coagulation; 180 mL/hr (03/16/2021 5:00 AM FIELD TRAINING AGENT) Lizet Navarro M.D. BLOOD TRANSFUSION ORDERABLES Transfuse Fresh Frozen Plasma :Bleeding with altered coagulation; 180 mL/hr, 2 Units (03/16/2021 5:00 AM FIELD TRAINING AGENT) Lizet Navarro M.D. BLOOD TRANSFUSION ORDERABLES (ABNORMAL) Calcium, Ionized (03/16/2021 4:57 AM FIELD TRAINING AGENT) P athologist Signature Calcium, 4.49 (L) 4.65 - 03/16/2021 [facility] Ionized, B 5.30 mg/dL 5:19 AM FIELD TRAINING AGENT Specimen Anatomical Collection Method Collection Time Receive d Time (Source) Location / / Volume Laterality Blood 03/16/2021 4:57 AM 5:05 FIELD TRAINING AGENT AM FIELD TRAINING AGENT Katrin Thomas APRN.NLala., M.S.N. LAB BLOOD NON A DD-ON Performing Organization Address [facility] Phon e Number [address] [place] [address] (ABNORMAL) pH (03/16/2021 4:57 AM FIELD TRAINING AGENT) athologist Signature pH 7.49 (H) 7.35 - 7.45 03/16/2021 [facility] pH 5:19 AM FIELD TRAINING AGENT Specimen Anatomical Collection Method Collection Time Receive d Time (Source) Location / / Volume Laterality Blood 03/16/2021 4:57 AM 5:05 FIELD TRAINING AGENT AM FIELD TRAINING AGENT Katrin Thomas APRN.N.P., M.S.N. LAB HISTORICAL ORDERS Performing Organization Address City/[facility] Phon e Number [address] [phone] [place] [address] (ABNORMAL) CBC without Differential (03/16/2021 4:21 AM FIELD TRAINING AGENT) [facility] gist Method Time Signature Hemoglobin 6.2 (L) 11.6 - 03/16/2021 [facility] 15.0 g/dL 4:54 AM FIELD TRAINING AGENT Hematocrit 18.3 (L) 35.5 - 03/16/2021 [facility] 44.9 % 4:54 AM FIELD TRAINING AGENT Erythrocytes 1.95 (L) 3.92 - 03/16/2021 [facility] 5.13 4:54 AM FIELD TRAINING AGENT x10(12)/L MCV 93.8 78.2 - 03/16/2021 [facility] 97.9 fL 4:54 AM FIELD TRAINING AGENT RBC Distrib Width 20.1 (H) 12.2 - 03/16/2021 [facility] 16.1 % 4:54 AM FIELD TRAINING AGENT Platelet Count 80 (L) 157 - 371 03/16/2021 [facility] x10(9)/L 4:54 AM FIELD TRAINING AGENT Leukocytes 6.3 3.4 - 9.6 03/16/2021 [facility] x10(9)/L 4:54 AM FIELD TRAINING AGENT Specimen Anatomical Collection Method Collection Time Receive d Time (Source) Location / / Volume Laterality Blood (Blood, 03/16/2021 4:21 AM 03/16/20 4:30 Venous) FIELD TRAINING AGENT AM FIELD TRAINING AGENT Nola Huitron APRN, C.N.P., M.S.N. LAB BLOOD ADD-O N Performing Organization Address City/State/ZIP Code Phon e Number [facility]- [address] [place] [phone] [place] [address] [place] [address] [address] (ABNORMAL) Comprehensive Metabolic Panel (03/16/2021 4:21 AM FIELD TRAINING AGENT) Analysis Performed At Patho logist Time Signature Potassium, P 3.6 3.6 - 5.2 03/16/2021 [facility] mmol/L 4:53 AM FIELD TRAINING AGENT Sodium, P 140 135 - 145 03/16/2021 [facility] mmol/L 4:53 AM FIELD TRAINING AGENT Chloride, P 109 (H) 98 - 107 03/16/2021 [facility] mmol/L 4:53 AM FIELD TRAINING AGENT Bicarbonate, P 20 (L) 22 - 29 03/16/2021 [facility] mmol/L 4:53 AM FIELD TRAINING AGENT Anion Gap, P 11 7 - 15 03/16/2021 [facility] 4:53 AM FIELD TRAINING AGENT BUN (Blood Urea 5 (L) 6 - 21 03/16/2021 [facility]TO Nitrogen), P mg/dL 4:53 AM FIELD TRAINING AGENT Creatinine 0.40 (L) 0.59 - 03/16/2021 [facility] 1.04 mg/dL 4:53 AM FIELD TRAINING AGENT eGFR-Black/Afri >90 >=60 03/16/2021 [facility]TO can Belgian mL/min/BSA 5:29 AM FIELD TRAINING AGENT Comment: ----ADDITIONAL INFORMATION---- Estimated GFR calculated using the 2009 CKD_EPI creatinine equation. eGFR Non-Black/ >90 >=60 mL/min/BSA 03/16/2021 5:29 AM FIELD TRAINING AGENT MKTO Comment: ----ADDITIONAL INFORMATION---- Estimated GFR calculated using the 2009 CKD_EPI creatinine equation. Calcium, Total, P 8.9 8.6 - 10.0 mg/dL 03/16/2021 4:53 AM FIELD TRAINING AGENT MKTO Glucose, P 135 70 - 140 mg/dL 03/16/2021 4:53 AM FIELD TRAINING AGENT M KTO Protein, Total, P 5.2 (L) 6.3 - 7.9 g/dL 03/16/2021 4:53 A M FIELD TRAINING AGENT MKTO Albumin, P 4.0 3.5 - 5.0 g/dL 03/16/2021 4:53 AM FIELD TRAINING AGENT M KTO Aspartate Aminotransferase 33 8 - 43 U/L 03/16/2021 4 :53 AM FIELD TRAINING AGENT MKTO (AST), P Alkaline Phosphatase, P 43 35 - 104 U/L 03/16/2021 4: 53 AM FIELD TRAINING AGENT MKTO Alanine Aminotransferase 8 7 - 45 U/L 03/16/2021 4:5 3 AM FIELD TRAINING AGENT MKTO (ALT), P Bilirubin, Total, P 5.1 (H) <=1.2 mg/dL 03/16/2021 4:53 AM FIELD TRAINING AGENT MKTO Specimen Anatomical Collection Method Collection Time Receive d Time (Source) Location / / Volume Laterality Blood (Blood, 03/16/2021 4:21 AM 03/16/20 4:53 Venous) FIELD TRAINING AGENT AM FIELD TRAINING AGENT Nola Huitron APRN C.N.P., M.S.N. LAB BLOOD ADD-O N Performing Organization Address City/State/ZIP Code Phon e Number [facility]- [address] [place] [phone] [place] [address] System [address] (ABNORMAL) Phosphorus Inorganic (03/16/2021 4:21 AM FIELD TRAINING AGENT) P athologist Signature Phosphorus 2.0 (L) 2.5 - 4.5 03/16/2021 MKTO (Inorganic), P mg/dL 4:53 AM FIELD TRAINING AGENT Specimen Anatomical Collection Method Collection Time Receive d Time (Source) Location / / Volume Laterality Blood (Blood, 03/16/2021 4:21 AM 03/16/20 4:53 Venous) FIELD TRAINING AGENT AM FIELD TRAINING AGENT Nola Huitron APRN, C.N.P., M.S.N. LAB BLOOD ADD-O N Performing Organization Address City/[facility] Phon e Number [facility]- [address] [place] [phone] [place] [address] Magnesium (03/16/2021 4:21 AM FIELD TRAINING AGENT) P athologist Signature Magnesium, P 1.7 1.7 - 2.3 03/16/2021 [facility] mg/dL 4:53 AM FIELD TRAINING AGENT Specimen Anatomical Collection Method Collection Time Receive d Time (Source) Location / / Volume Laterality Blood (Blood, 03/16/2021 4:21 AM 03/16/20 4:53 Venous) FIELD TRAINING AGENT AM FIELD TRAINING AGENT Nola Huitron APRN, C.N.P., M.S.N. LAB BLOOD ADD-O N Performing Organization Address City/[facility] Phon e Number [facility]- [address] [place] [phone] [place] [address] Transfuse Pooled Cryoprecipitate:Bleeding with Fibrinogen deficiency; 180 mL/hr (03/16/2021 3:48 AM FIELD TRAINING AGENT) Nola Huitron APRN, C.N.P., M.S.N. BLOOD TRANSFUSI ON ORDERABLES Transfuse Pooled Cryoprecipitate:Bleeding with Fibrinogen deficiency; 180 mL/hr (03/16/2021 3:48 AM FIELD TRAINING AGENT) Nola J Elana VOICE ENGINEER, C.N.P., M.S.N. BLOOD TRANSFUSI ON ORDERABLES Transfuse Pooled Cryoprecipitate:Bleeding with Fibrinogen deficiency; 180 mL/hr (03/16/2021 3:17 AM FIELD TRAINING AGENT) Nolabrandee Huitron APRN, C.N.P., M.S.N. BLOOD TRANSFUSI ON ORDERABLES CT Abdomen Pelvis with IV Contrast (03/16/2021 2:36 AM FIELD TRAINING AGENT) Anatomical Region Laterality Modality Abdomen, Pelvis, Abdominal RST LOS, Abdominal ARZ LOS, N/A Computed Tomography Abdominal FLA LOS Specimen (Source) Anatomical Collection Method Collection Time Re ceived Time Location / / Volume Laterality 03/16/2021 7:41 AM FIELD TRAINING AGENT Impressions 03/16/2021 7:49 AM FIELD TRAINING AGENT 1. Newly identified CHF, with associated compressive atelectasis at each lung base. 2. Stable abdominal ascites with no iden tified area of hemorrhage. 3. Newly identified anasarca. 4. Heterogeneous appearance of the liver with splenomegaly, the combination of findings suggestive of hepatic inflammat ion. Clinical correlation is recommended. Narrative 03/16/2021 7:49 AM FIELD TRAINING AGENT EXAM: CT ABDOMEN PELVIS WITH IV CONTRAST [...] Test, POCT, Urine (lab) (03/16/2021 2:11 AM FIELD TRAINING AGENT) P athologist Signature Negative 03/16/2021 MKTO Test, POCT, U 2:19 AM FIELD TRAINING AGENT Specimen Anatomical Collection Method Collection Time Receive d Time (Source) Location / / Volume Laterality Urine (Urine, 03/16/2021 2:11 AM 03/16/20 2:11 Clean Catch) FIELD TRAINING AGENT AM FIELD TRAINING AGENT Tariq DanielSSuma LAB POCT ORDERABLES - DEVICE Performing Organization Address [facility] Phon e Number [facility]- [address] [place] [phone] [place] [address] [address] (ABNORMAL) Fibrinogen (03/16/2021 1:11 AM FIELD TRAINING AGENT) P athologist Signature Fibrinogen, P 57 (CL) 200 - 393 03/16/2021 [facility] mg/dL 1:46 AM FIELD TRAINING AGENT Specimen Anatomical Collection Method Collection Time Receive d Time (Source) Location / / Volume Laterality Blood (Blood, 03/16/2021 1:11 AM 03/16/20 1:15 Venous) FIELD TRAINING AGENT AM FIELD TRAINING AGENT Tariq CheryB.S. LAB BLOOD ADD-ON Performing Organization Address City/[facility] Phon e Number [facility]- [address] [place] [phone] [place] [address] (ABNORMAL) APTT (Activated Partial Thromboplastin Time) (03/16/2021 1:11 AM FIELD TRAINING AGENT) P athologist Signature Activated 61 (H) 25 - 37 03/16/2021 [facility] Partial sec 1:29 AM FIELD TRAINING AGENT Thrombopl Time, P Specimen Anatomical Collection Method Collection Time Receive d Time (Source) Location / / Volume Laterality Blood (Blood, 03/16/2021 1:11 AM 03/16/20 1:15 Venous) FIELD TRAINING AGENT AM FIELD TRAINING AGENT Tariq CheryBSumaS. LAB BLOOD ADD-ON Performing Organization Address City/[facility] Phon e Number [address] [phone] [place] [address] [address] (ABNORMAL) Prothrombin Time (PT) (03/16/2021 1:11 AM FIELD TRAINING AGENT) Patholo gist Method Time Signature Prothrombin 26.9 (H) 9.4 - 12.5 03/16/2021 [facility]TO Time, P sec 1:45 AM FIELD TRAINING AGENT INR 2.4 0.9 - 1.1 03/16/2021 MKTO 1:45 AM FIELD TRAINING AGENT Comment: ----ADDITIONAL INFORMATION---- Standard intensity warfarin therapeutic range: 2.0 to 3.0 ?? High intensity warfarin therapeutic rang e: 2.5 to 3.5 Specimen Anatomical Collection Method Collection Time Receive d Time (Source) Location / / Volume Laterality Blood (Blood, 03/16/2021 1:11 AM 03/16/20 1:15 Venous) FIELD TRAINING AGENT AM FIELD TRAINING AGENT Tariq CheryB.S. LAB BLOOD ADD-ON Performing Organization Address City/[facility] Phon e Number [address] [phone] [place] [address] System in [address] Potassium (03/16/2021 12:08 AM FIELD TRAINING AGENT) P athologist Signature Potassium, P 3.9 3.6 - 5.2 03/16/2021 [facility] mmol/L 12:33 AM FIELD TRAINING AGENT Specimen Anatomical Collection Method Collection Time Receive d Time (Source) Location / / Volume Laterality Blood (Blood, 03/16/2021 12:08 03/16/2021 Venous) AM FIELD TRAINING AGENT 12:33 AM FIELD TRAINING AGENT Tariq CheryB.S. LAB BLOOD ADD-ON Performing Organization Address City/[facility] Phon e Number [address] [phone] [place] [address] [address] (ABNORMAL) Hemoglobin (03/16/2021 12:08 AM FIELD TRAINING AGENT) P athologist Signature Hemoglobin 7.3 (L) 11.6 - 15.0 03/16/2021 [facility] g/dL 12:26 AM FIELD TRAINING AGENT Specimen Anatomical Collection Method Collection Time Receive d Time (Source) Location / / Volume Laterality Blood (Blood, 03/16/2021 12:08 03/16/2021 Venous) AM FIELD TRAINING AGENT 12:26 AM FIELD TRAINING AGENT Nola Huitron APRN, C.N.P., M.S.N. LAB BLOOD ADD-O N Performing Organization Address City/[facility] Phon e Number [facility]- [address] [place] [phone] [place] [address] [place] [address] (ABNORMAL) Glucose, POCT (03/15/2021 11:33 PM FIELD TRAINING AGENT) athologist Signature Glucose, POCT, 160 (H) 70 - 140 03/15/2021 MKTO B mg/dL 11:33 PM FIELD TRAINING AGENT Specimen Anatomical Collection Method Collection Time Receive d Time (Source) Location / / Volume Laterality Blood 03/15/2021 11:33 03/16/2021 PM FIELD TRAINING AGENT 12:15 AM FIELD TRAINING AGENT Generic Rals LAB POCT ORDERABLES-MANUAL Performing Organization Address City/[facility] Phon e Number [facility]- [address] [place] [address] [place] [address] Transfuse Red Blood Cells : (03/15/2021 11:07 PM FIELD TRAINING AGENT) Nola Huitron APRN, C.N.P., M.S.N. BLOOD TRANSFUSI ON ORDERABLES Transfuse Red Blood Cells : , 1 Units (03/15/2021 11:07 PM FIELD TRAINING AGENT) Nola Huitron APRN, C.N.P., M.S.N. BLOOD TRANSFUSI ON ORDERABLES (ABNORMAL) Hemoglobin (03/15/2021 8:11 PM FIELD TRAINING AGENT) P athologist Signature Hemoglobin 6.6 (L) 11.6 - 15.0 03/15/2021 [facility]TO g/dL 8:27 PM FIELD TRAINING AGENT Specimen Anatomical Collection Method Collection Time Receive d Time (Source) Location / / Volume Laterality Blood (Blood, 03/15/2021 8:11 PM 03/15/20 8:23 Venous) FIELD TRAINING AGENT PM FIELD TRAINING AGENT Nola Huitron APRN, C.N.P., M.S.N. LAB BLOOD ADD-O N Performing Organization Address City/[facility]/ZIP [place] Phon e Number [facility]- [address] [place] [phone] [place] [address] Transfuse Fresh Frozen Plasma :Bleeding with altered coagulation; 180 mL/hr (03/15/2021 6:20 PM FIELD TRAINING AGENT) Jailene Barnhart RDN, TALI BLOOD TRANSFUSION ORDERABLES (ABNORMAL) Hemoglobin (03/15/2021 4:52 PM FIELD TRAINING AGENT) P athologist Signature Hemoglobin 7.6 (L) 11.6 - 15.0 03/15/2021 [facility]TO g/dL 4:57 PM FIELD TRAINING AGENT Specimen Anatomical Collection Method Collection Time Receive d Time (Source) Location / / Volume Laterality Blood (Blood, 03/15/2021 4:52 PM 03/15/20 4:55 Venous) FIELD TRAINING AGENT PM FIELD TRAINING AGENT Lizet Navarro M.D. LAB BLOOD ADD-ON Performing Organization Address City/[facility]/ZIP Code Phon e Number [facility]- [address] [place] [phone] [place] [address] [address] (ABNORMAL) Hematocrit (03/15/2021 4:52 PM FIELD TRAINING AGENT) P athologist Signature Hematocrit 22.4 (L) 35.5 - 44.9 03/15/2021 MKTO % 4:57 PM FIELD TRAINING AGENT Specimen Anatomical Collection Method Collection Time Receive d Time (Source) Location / / Volume Laterality Blood (Blood, 03/15/2021 4:52 PM 03/15/20 4:55 Venous) FIELD TRAINING AGENT PM FIELD TRAINING AGENT Lizet Navarro M.D. LAB BLOOD ADD-ON Performing Organization Address City/[facility]/ZIP Code Phon e Number [facility]- [address] [place] [phone] [place] [address] [address] Transfuse Fresh Frozen Plasma :Bleeding with altered coagulation; 180 mL/hr (03/15/2021 3:34 PM FIELD TRAINING AGENT) Lizet Navarro M.D. BLOOD TRANSFUSION ORDERABLES (ABNORMAL) Phosphorus Inorganic (03/15/2021 2:29 PM FIELD TRAINING AGENT) athologist Signature Phosphorus 2.3 (L) 2.5 - 4.5 03/15/2021 MKTO (Inorganic), P mg/dL 5:27 PM FIELD TRAINING AGENT Specimen Anatomical Collection Method Collection Time Receive d Time (Source) Location / / Volume Laterality Blood (Blood, 03/15/2021 2:29 PM 03/15/20 5:12 Venous) FIELD TRAINING AGENT PM FIELD TRAINING AGENT Lizet Navarro M.D. LAB BLOOD ADD-ON Performing Organization Address [facility]/ZIP [place] Phon e Number [facility]- [address] [place] [phone] [place] [address] Magnesium (03/15/2021 2:29 PM FIELD TRAINING AGENT) athologist Signature Magnesium, P 1.8 1.7 - 2.3 03/15/2021 MKTO mg/dL 5:27 PM FIELD TRAINING AGENT Specimen Anatomical Collection Method Collection Time Receive d Time (Source) Location / / Volume Laterality Blood (Blood, 03/15/2021 2:29 PM 03/15/20 5:12 Venous) FIELD TRAINING AGENT PM FIELD TRAINING AGENT Lizet Navarro M.D. LAB BLOOD ADD-ON Performing Organization Address City/[facility] Code Phon e Number [facility]- [address] [place] [phone] [place] [address] System in [address] (ABNORMAL) Hemoglobin (03/15/2021 2:29 PM FIELD TRAINING AGENT) P athologist Signature Hemoglobin 7.9 (L) 11.6 - 15.0 03/15/2021 MKTO g/dL 2:50 PM FIELD TRAINING AGENT Specimen Anatomical Collection Method Collection Time Receive d Time (Source) Location / / Volume Laterality Blood (Blood, 03/15/2021 2:29 PM 03/15/20 2:43 Venous) FIELD TRAINING AGENT PM FIELD TRAINING AGENT Lizet Navarro M.D. LAB BLOOD ADD-ON Performing Organization Address City/State/[facility] Phon e Number [facility]- [address] [place] [phone] [place] [address] (ABNORMAL) Hematocrit (03/15/2021 2:29 PM FIELD TRAINING AGENT) P athologist Signature Hematocrit 23.3 (L) 35.5 - 44.9 03/15/2021 MKTO % 2:50 PM FIELD TRAINING AGENT Specimen Anatomical Collection Method Collection Time Receive d Time (Source) Location / / Volume Laterality Blood (Blood, 03/15/2021 2:29 PM 03/15/20 2:43 Venous) FIELD TRAINING AGENT PM FIELD TRAINING AGENT Lizet Navarro M.D. LAB BLOOD ADD-ON Performing Organization Address [facility] Phon e Number [facility]- [address] [place] [phone] [place] [address] (ABNORMAL) Basic Metabolic Panel (03/15/2021 2:29 PM FIELD TRAINING AGENT) Analysis Performed At Patho logist Time Signature Potassium, P 3.2 (L) 3.6 - 5.2 03/15/2021 [facility] mmol/L 3:18 PM FIELD TRAINING AGENT Sodium, P 138 135 - 145 03/15/2021 [facility] mmol/L 3:18 PM FIELD TRAINING AGENT Chloride, P 105 98 - 107 03/15/2021 [facility] mmol/L 3:18 PM FIELD TRAINING AGENT Bicarbonate, P 19 (L) 22 - 29 03/15/2021 [facility] mmol/L 3:18 PM FIELD TRAINING AGENT Anion Gap, P 14 7 - 15 03/15/2021 MKTO 3:18 PM FIELD TRAINING AGENT BUN (Blood Urea 8 6 - 21 03/15/2021 [facility] Nitrogen), P mg/dL 3:18 PM FIELD TRAINING AGENT Creatinine 0.49 (L) 0.59 - 03/15/2021 [facility] 1.04 mg/dL 3:18 PM FIELD TRAINING AGENT eGFR-Black/Afri >90 >=60 03/15/2021 MKTO can Belgian mL/min/BSA 3:18 PM FIELD TRAINING AGENT Comment: ----ADDITIONAL INFORMATION---- Estimated GFR calculated using the 2009 CKD_EPI creatinine equation. eGFR Non-Black/ >90 >=60 mL/min/BSA 03/15/2021 3:18 PM FIELD TRAINING AGENT MKTO Comment: ----ADDITIONAL INFORMATION---- Estimated GFR calculated using the 2009 CKD_EPI creatinine equation. Calcium, Total, P 9.0 8.6 - 10.0 mg/dL 03/15/2021 3:18 PM FIELD TRAINING AGENT MKTO Glucose, P 125 70 - 140 mg/dL 03/15/2021 3:18 PM FIELD TRAINING AGENT [facility] Specimen Anatomical Collection Method Collection Time Receive d Time (Source) Location / / Volume Laterality Blood (Blood, 03/15/2021 2:29 PM 03/15/20 2:43 Venous) FIELD TRAINING AGENT PM FIELD TRAINING AGENT Lizet Navarro M.D. LAB BLOOD ADD-ON Performing Organization Address [facility] Phon e Number [address] [address] [place] [address] [address] Transfuse Red Blood Cells : (03/15/2021 1:16 PM FIELD TRAINING AGENT) Josep Jennings M.D. BLOOD TRANSFUSION ORDERABLES Transfuse Red Blood Cells : , 1 Units (03/15/2021 1:16 PM FIELD TRAINING AGENT) Josep Jennings M.D. BLOOD TRANSFUSION ORDERABLES Glucose, POCT (03/15/2021 11:57 AM FIELD TRAINING AGENT) P athologist Signature Glucose, POCT, 119 70 - 140 03/15/2021 MKTO B mg/dL 11:57 AM FIELD TRAINING AGENT Specimen Anatomical Collection Method Collection Time Receive d Time (Source) Location / / Volume Laterality Blood 03/15/2021 11:57 03/15/2021 AM FIELD TRAINING AGENT 12:08 PM FIELD TRAINING AGENT Generic Rals LAB POCT ORDERABLES-MANUAL Performing Organization Address [facility] Phon e Number [address] [address] [place] [address] Glucose, POCT (03/15/2021 6:14 AM FIELD TRAINING AGENT) P athologist Signature Glucose, POCT, 116 70 - 140 03/15/2021 MKTO B mg/dL 6:14 AM FIELD TRAINING AGENT Specimen Anatomical Collection Method Collection Time Receive d Time (Source) Location / / Volume Laterality Blood 03/15/2021 6:14 AM FIELD TRAINING AGENT 10:34 AM FIELD TRAINING AGENT Generic Rals LAB POCT ORDERABLES-MANUAL Performing Organization Address City/[facility]/ZIP Code Phon e Number [facility]- [address] [place] [phone] [place] [address] System [place] [address] Magnesium (03/15/2021 4:18 AM FIELD TRAINING AGENT) P athologist Signature Magnesium, P 1.7 1.7 - 2.3 03/15/2021 MKTO mg/dL 5:00 AM FIELD TRAINING AGENT Specimen Anatomical Collection Method Collection Time Receive d Time (Source) Location / / Volume Laterality Blood (Blood, 03/15/2021 4:18 AM 03/15/20 4:35 Venous) FIELD TRAINING AGENT AM FIELD TRAINING AGENT Lowell Thomas APRNN.Shanita., M.S.N. LAB BLOOD ADD-O N Performing Organization Address City/[facility] Code Phon e Number [facility]- [address] [place] [phone] [place] [address] System [address] (ABNORMAL) Phosphorus Inorganic (03/15/2021 4:18 AM FIELD TRAINING AGENT) athologist Signature Phosphorus 2.1 (L) 2.5 - 4.5 03/15/2021 MKTO (Inorganic), P mg/dL 5:00 AM FIELD TRAINING AGENT Specimen Anatomical Collection Method Collection Time Receive d Time (Source) Location / / Volume Laterality Blood (Blood, 03/15/2021 4:18 AM 03/15/20 4:35 Venous) FIELD TRAINING AGENT AM FIELD TRAINING AGENT Katrin Thomas APRN.N.P., M.S.N. LAB BLOOD ADD-O N Performing Organization Address City/[facility]/ZIP Code Phon e Number [facility]- [address] [place] [phone] [place] [address] [place] [address] (ABNORMAL) Prothrombin Time (PT) (03/15/2021 4:18 AM FIELD TRAINING AGENT) [facility] gist Method Time Signature Prothrombin 26.3 (H) 9.4 - 12.5 03/15/2021 MKTO Time, P sec 4:58 AM FIELD TRAINING AGENT INR 2.3 0.9 - 1.1 03/15/2021 MKTO 4:58 AM FIELD TRAINING AGENT Comment: ----ADDITIONAL INFORMATION---- Standard intensity warfarin therapeutic range: 2.0 to 3.0 ?? High intensity warfarin therapeutic rang e: 2.5 to 3.5 Specimen Anatomical Collection Method Collection Time Receive d Time (Source) Location / / Volume Laterality Blood (Blood, 03/15/2021 4:18 AM 03/15/20 4:35 Venous) FIELD TRAINING AGENT AM FIELD TRAINING AGENT Nola Huitron APRN C.N.P., M.S.N. LAB BLOOD ADD-O N Performing Organization Address City/State/ZIP Code Phon e Number [facility]- [address] [place], [place] [phone] [place] [address] [address] (ABNORMAL) Comprehensive Metabolic Panel (03/15/2021 4:18 AM FIELD TRAINING AGENT) Analysis Performed At [facility] logist Time Signature Potassium, P 2.7 (L) 3.6 - 5.2 03/15/2021 MKTO mmol/L 5:00 AM FIELD TRAINING AGENT Sodium, P 140 135 - 145 03/15/2021 MKTO mmol/L 5:00 AM FIELD TRAINING AGENT Chloride, P 107 98 - 107 03/15/2021 MK[facility] mmol/L 5:00 AM FIELD TRAINING AGENT Bicarbonate, P 20 (L) 22 - 29 03/15/2021 MKTO mmol/L 5:00 AM FIELD TRAINING AGENT Anion Gap, P 13 7 - 15 03/15/2021 MKTO 5:00 AM FIELD TRAINING AGENT BUN (Blood Urea 11 6 - 21 03/15/2021 MKTO Nitrogen), P mg/dL 5:00 AM FIELD TRAINING AGENT Creatinine 0.55 (L) 0.59 - 03/15/2021 MKTO 1.04 mg/dL 5:00 AM FIELD TRAINING AGENT eGFR-Black/Afri >90 >=60 03/15/2021 MKTO can Belgian mL/min/BSA 5:00 AM FIELD TRAINING AGENT Comment: ----ADDITIONAL INFORMATION---- Estimated GFR calculated using the 2009 CKD_EPI creatinine equation. eGFR Non-Black/ >90 >=60 mL/min/BSA 03/15/2021 5:00 AM FIELD TRAINING AGENT MKTO Comment: ----ADDITIONAL INFORMATION---- Estimated GFR calculated using the 2009 CKD_EPI creatinine equation. Calcium, Total, P 9.1 8.6 - 10.0 mg/dL 03/15/2021 5:00 AM FIELD TRAINING AGENT MKTO Glucose, P 127 70 - 140 mg/dL 03/15/2021 5:00 AM FIELD TRAINING AGENT M KTO Protein, Total, P 5.7 (L) 6.3 - 7.9 g/dL 03/15/2021 5:00 A M FIELD TRAINING AGENT MKTO Albumin, P 4.3 3.5 - 5.0 g/dL 03/15/2021 5:00 AM FIELD TRAINING AGENT M KTO Aspartate Aminotransferase 38 8 - 43 U/L 03/15/2021 5 :00 AM FIELD TRAINING AGENT MK[facility] (AST), P Alkaline Phosphatase, P 50 35 - 104 U/L 03/15/2021 5: 00 AM FIELD TRAINING AGENT MKTO Alanine Aminotransferase 9 7 - 45 U/L 03/15/2021 5:0 0 AM FIELD TRAINING AGENT MK[facility] (ALT), P Bilirubin, Total, P 5.6 (H) <=1.2 mg/dL 03/15/2021 5:00 AM FIELD TRAINING AGENT MKTO Specimen Anatomical Collection Method Collection Time Receive d Time (Source) Location / / Volume Laterality Blood (Blood, 03/15/2021 4:18 AM 03/15/20 4:35 Venous) FIELD TRAINING AGENT AM FIELD TRAINING AGENT Nola Huitron APRN C.N.P., M.S.N. LAB BLOOD ADD-O N Performing Organization Address City/State/ZIP Code Phon e Number [facility]- [address] [place] [address] [place] [address] (ABNORMAL) CBC without Differential (03/15/2021 4:18 AM FIELD TRAINING AGENT) Patholo gist Method Time Signature Hemoglobin 6.9 (L) 11.6 - 03/15/2021 MKTO 15.0 g/dL 5:00 AM FIELD TRAINING AGENT Hematocrit 20.5 (L) 35.5 - 03/15/2021 MKTO 44.9 % 5:00 AM FIELD TRAINING AGENT Erythrocytes 2.11 (L) 3.92 - 03/15/2021 MKTO 5.13 5:00 AM FIELD TRAINING AGENT x10(12)/L MCV 97.2 78.2 - 03/15/2021 MKTO 97.9 fL 5:00 AM FIELD TRAINING AGENT RBC Distrib Width 22.5 (H) 12.2 - 03/15/2021 MKTO 16.1 % 5:00 AM FIELD TRAINING AGENT Platelet Count 86 (L) 157 - 371 03/15/2021 MKTO x10(9)/L 5:00 AM FIELD TRAINING AGENT Leukocytes 6.3 3.4 - 9.6 03/15/2021 MKTO x10(9)/L 5:00 AM FIELD TRAINING AGENT Specimen Anatomical Collection Method Collection Time Receive d Time (Source) Location / / Volume Laterality Blood (Blood, 03/15/2021 4:18 AM 03/15/20 4:35 Venous) FIELD TRAINING AGENT AM FIELD TRAINING AGENT Nola Huitron APRN, C.N.P., M.S.N. LAB BLOOD ADD-O N Performing Organization Address City/[facility] Phon e Number [phone] [place] [address] [place] [address] Glucose, POCT (03/14/2021 11:43 PM FIELD TRAINING AGENT) P athologist Signature Glucose, POCT, 122 70 - 140 03/14/2021 MKTO B mg/dL 11:43 PM FIELD TRAINING AGENT Specimen Anatomical Collection Method Collection Time Receive d Time (Source) Location / / Volume Laterality Blood 03/14/2021 11:43 03/15/2021 PM FIELD TRAINING AGENT 12:29 AM FIELD TRAINING AGENT Generic Rals LAB POCT ORDERABLES-MANUAL Performing Organization Address [facility] Phon e Number [address] [phone] [place] [address] Glucose, POCT (03/14/2021 6:25 PM FIELD TRAINING AGENT) P athologist Signature Glucose, POCT, 140 70 - 140 03/14/2021 MKTO B mg/dL 6:25 PM FIELD TRAINING AGENT Specimen Anatomical Collection Method Collection Time Receive d Time (Source) Location / / Volume Laterality Blood 03/14/2021 6:25 PM 7:32 FIELD TRAINING AGENT PM FIELD TRAINING AGENT Generic Rals LAB POCT ORDERABLES-MANUAL Performing Organization Address City/[facility]/ZIP [place] Phon e Number [address] [phone] [place] [address] [address] Glucose, POCT (03/14/2021 11:32 AM FIELD TRAINING AGENT) P athologist Signature Glucose, POCT, 120 70 - 140 03/14/2021 MKTO B mg/dL 11:32 AM FIELD TRAINING AGENT Specimen Anatomical Collection Method Collection Time Receive d Time (Source) Location / / Volume Laterality Blood 03/14/2021 11:32 03/14/2021 2:20 AM FIELD TRAINING AGENT PM FIELD TRAINING AGENT Generic Rals LAB POCT ORDERABLES-MANUAL Performing Organization Address City/[facility] Phon e Number [address] [phone] [place] [address] [address] [place] [address] Patient Status (03/14/2021 11:00 AM FIELD TRAINING AGENT) P athologist Signature FIO2 0.30 0.21=AIR 03/14/2021 11:19 MKTO AM FIELD TRAINING AGENT Specimen Anatomical Collection Method Collection Time Receive d Time (Source) Location / / Volume Laterality Blood 03/14/2021 11:00 03/14/2021 AM FIELD TRAINING AGENT 11:14 AM FIELD TRAINING AGENT Lizet Navarro M.D. LAB BLOOD NON ADD-ON Performing Organization Address City/State/ZIP Code Phon e Number [address] [address] [place] [address] (ABNORMAL) Blood Gas with Coox, Arterial (03/14/2021 11:00 AM FIELD TRAINING AGENT) [facility] Method Time Signature P O2 120 (H) 83 - 108 03/14/2021 MKTO mm Hg 11:19 AM FIELD TRAINING AGENT P CO2 33 32 - 45 03/14/2021 [facility] mm Hg 11:19 AM FIELD TRAINING AGENT pH 7.42 7.35 - 03/14/2021 MKTO 7.45 pH 11:19 AM FIELD TRAINING AGENT Base Excess -3 (L) -2 - 3 03/14/2021 [facility] mmol/L 11:19 AM FIELD TRAINING AGENT HCO3 21 (L) 22 - 26 03/14/2021 MKTO mmol/L 11:19 AM FIELD TRAINING AGENT Hemoglobin, B 7.8 (L) 11.6 - 03/14/2021 MKTO 15.0 g/dL 11:19 AM FIELD TRAINING AGENT O2Hb 96.7 94.0 - 03/14/2021 MKTO 98.0 % 11:19 AM FIELD TRAINING AGENT COHb 1.4 <3.0 % 03/14/2021 MKTO 11:19 AM FIELD TRAINING AGENT MetHb 0.7 <1.5 % 03/14/2021 MKTO 11:19 AM FIELD TRAINING AGENT CtO2 10.8 (L) 18.0 - 03/14/2021 MKTO 21.0 vol 11:19 AM FIELD TRAINING AGENT % Arterial Arterial 03/14/2021 MKTO Sample Site Line 11:19 AM FIELD TRAINING AGENT Specimen Anatomical Collection Method Collection Time Receive d Time (Source) Location / / Volume Laterality Blood (Blood, 03/14/2021 11:00 03/14/2021 Arterial) AM FIELD TRAINING AGENT 11:14 AM FIELD TRAINING AGENT Lizet Navarro M.D. LAB BLOOD NON ADD-ON Performing Organization Address City/State/ZIP Code Phon e Number [facility]- [address] [place] [phone] [place] [address] System in [place] [address] [place] [address] (ABNORMAL) Prothrombin Time (PT) (03/14/2021 9:22 AM FIELD TRAINING AGENT) [facility] Method Time Signature Prothrombin 28.5 (H) 9.4 - 12.5 03/14/2021 MKTO Time, P sec 10:13 AM FIELD TRAINING AGENT INR 2.5 0.9 - 1.1 03/14/2021 MKTO 10:13 AM FIELD TRAINING AGENT Comment: ----ADDITIONAL INFORMATION---- Standard intensity warfarin therapeutic range: 2.0 to 3.0 ?? High intensity warfarin therapeutic rang e: 2.5 to 3.5 Specimen Anatomical Collection Method Collection Time Receive d Time (Source) Location / / Volume Laterality Blood (Blood, 03/14/2021 9:22 AM 03/14/20 9:26 Venous) FIELD TRAINING AGENT AM FIELD TRAINING AGENT Kerry Naranjo APRN, C.N.P., M.S.N. LAB BLOOD ADD-ON Performing Organization Address City/[facility]/ZIP [place] Phon e Number [address] [address] [place] [address] Glucose, POCT (03/14/2021 6:28 AM FIELD TRAINING AGENT) P athologist Signature Glucose, POCT, 109 70 - 140 03/14/2021 MKTO B mg/dL 6:28 AM FIELD TRAINING AGENT Specimen Anatomical Collection Method Collection Time Receive d Time (Source) Location / / Volume Laterality Blood 03/14/2021 6:28 AM 6:51 FIELD TRAINING AGENT AM FIELD TRAINING AGENT Generic Rals LAB POCT ORDERABLES-MANUAL Performing Organization Address [facility] Phon e Number [address] [phone] [facility] [place] [place] [address] System [place] [address] (ABNORMAL) pH (03/14/2021 5:41 AM FIELD TRAINING AGENT) P athologist Signature pH 7.48 (H) 7.35 - 7.45 03/14/2021 MKTO pH 5:51 AM FIELD TRAINING AGENT Specimen Anatomical Collection Method Collection Time Receive d Time (Source) Location / / Volume Laterality Blood 03/14/2021 5:41 AM 1 5:48 FIELD TRAINING AGENT AM FIELD TRAINING AGENT Katrin Thomas APRN.N.P., M.S.N. LAB HISTORICAL ORDERS Performing Organization Address [facility]/ZIP Code Phon e Number [address] [phone] [place] [address] (ABNORMAL) Calcium, Ionized (03/14/2021 5:41 AM FIELD TRAINING AGENT) athologist Signature Calcium, 4.61 (L) 4.65 - 03/14/2021 MKTO Ionized, B 5.30 mg/dL 5:51 AM FIELD TRAINING AGENT Specimen Anatomical Collection Method Collection Time Receive d Time (Source) Location / / Volume Laterality Blood 03/14/2021 5:41 AM 5:48 FIELD TRAINING AGENT AM FIELD TRAINING AGENT Florence Thomas APRN.Shanita., M.S.N. LAB BLOOD NON A DD-ON Performing Organization Address City/[facility] Phon e Number [address] [phone] [place] [address] System in [address] Patient Status (03/14/2021 5:41 AM FIELD TRAINING AGENT) athologist Signature FIO2 0.30 0.21=AIR 03/14/2021 5:51 MKTO AM FIELD TRAINING AGENT Specimen Anatomical Collection Method Collection Time Receive d Time (Source) Location / / Volume Laterality Blood 03/14/2021 5:41 AM 5:48 FIELD TRAINING AGENT AM FIELD TRAINING AGENT Katrin Thomas APRN.N.Shanita., M.S.N. LAB BLOOD NON A DD-ON Performing Organization Address City/[facility] Phon e Number [address] [address] [place] [address] Phosphorus Inorganic (03/14/2021 5:41 AM FIELD TRAINING AGENT) athologist Signature Phosphorus 2.8 2.5 - 4.5 03/14/2021 MKTO (Inorganic), P mg/dL 6:11 AM FIELD TRAINING AGENT Specimen Anatomical Collection Method Collection Time Receive d Time (Source) Location / / Volume Laterality Blood (Blood, 03/14/2021 5:41 AM 03/14/20 5:48 Venous) FIELD TRAINING AGENT AM FIELD TRAINING AGENT Nola Huitron APRN, C.N.P., M.S.N. LAB BLOOD ADD-O N Performing Organization Address City/[facility] Phon e Number [facility]- [address] [place] [phone] [place] [address] Magnesium (03/14/2021 5:41 AM FIELD TRAINING AGENT) athologist Signature Magnesium, P 2.3 1.7 - 2.3 03/14/2021 MKTO mg/dL 6:11 AM FIELD TRAINING AGENT Specimen Anatomical Collection Method Collection Time Receive d Time (Source) Location / / Volume Laterality Blood (Blood, 03/14/2021 5:41 AM 03/14/20 5:48 Venous) FIELD TRAINING AGENT AM FIELD TRAINING AGENT Nola Huitron APRN, C.N.P., M.S.N. LAB BLOOD ADD-O N Performing Organization Address City/[facility] Phon e Number [facility]- [address] [place] [phone] [facility] [place] [phone] System in [address] (ABNORMAL) Blood Gas with Coox, Arterial (03/14/2021 5:41 AM FIELD TRAINING AGENT) P athologist Signature P O2 146 (H) 83 - 108 03/14/2021 MKTO mm Hg 5:51 AM FIELD TRAINING AGENT P CO2 32 32 - 45 mm 03/14/2021 MKTO Hg 5:51 AM FIELD TRAINING AGENT pH 7.43 7.35 - 03/14/2021 MKTO 7.45 pH 5:51 AM FIELD TRAINING AGENT Base Excess -2 -2 - 3 03/14/2021 MKTO mmol/L 5:51 AM FIELD TRAINING AGENT HCO3 21 (L) 22 - 26 03/14/2021 MKTO mmol/L 5:51 AM FIELD TRAINING AGENT Hemoglobin, B 8.0 (L) 11.6 - 03/14/2021 MKTO 15.0 g/dL 5:51 AM FIELD TRAINING AGENT O2Hb 97.5 94.0 - 03/14/2021 MKTO 98.0 % 5:51 AM FIELD TRAINING AGENT COHb 1.7 <3.0 % 03/14/2021 MKTO 5:51 AM FIELD TRAINING AGENT MetHb 0.1 <1.5 % 03/14/2021 MKTO 5:51 AM FIELD TRAINING AGENT CtO2 11.3 (L) 18.0 - 03/14/2021 MKTO 21.0 vol % 5:51 AM FIELD TRAINING AGENT Arterial Art Line 03/14/2021 MK[facility] Sample Site 5:51 AM FIELD TRAINING AGENT Specimen Anatomical Collection Method Collection Time Receive d Time (Source) Location / / Volume Laterality Blood (Blood, 03/14/2021 5:41 AM 03/14/20 5:48 Arterial) FIELD TRAINING AGENT AM FIELD TRAINING AGENT Nola Huitron APRN C.N.P., M.S.N. LAB BLOOD NON A DD-ON Performing Organization Address City/State/ZIP Code Phon e Number [facility]- [address] [place] [phone] [place] [address] [place] [address] (ABNORMAL) Basic Metabolic Panel (03/14/2021 5:41 AM FIELD TRAINING AGENT) P athologist Signature Potassium, P 3.2 (L) 3.6 - 5.2 03/14/2021 [facility] mmol/L 6:11 AM FIELD TRAINING AGENT Sodium, P 135 135 - 145 03/14/2021 [facility] mmol/L 6:11 AM FIELD TRAINING AGENT Chloride, P 103 98 - 107 03/14/2021 MKTO mmol/L 6:11 AM FIELD TRAINING AGENT Bicarbonate, P 19 (L) 22 - 29 03/14/2021 MKTO mmol/L 6:11 AM FIELD TRAINING AGENT Anion Gap, P 13 7 - 15 03/14/2021 MKTO 6:11 AM FIELD TRAINING AGENT BUN (Blood Urea 11 6 - 21 03/14/2021 MKTO Nitrogen), P mg/dL 6:11 AM FIELD TRAINING AGENT Creatinine 0.60 0.59 - 03/14/2021 MKTO 1.04 mg/dL 6:11 AM FIELD TRAINING AGENT eGFR-Black/Afri >90 >=60 03/14/2021 MKTO can Belgian mL/min/BSA 6:11 AM FIELD TRAINING AGENT Comment: ----ADDITIONAL INFORMATION---- Estimated GFR calculated using the 2009 CKD_EPI creatinine equation. eGFR Non-Black/ >90 >=60 mL/min/BSA 03/14/2021 6:11 AM FIELD TRAINING AGENT MKTO Comment: ----ADDITIONAL INFORMATION---- Estimated GFR calculated using the 2009 CKD_EPI creatinine equation. Calcium, Total, P 8.9 8.6 - 10.0 mg/dL 03/14/2021 6:11 AM FIELD TRAINING AGENT [facility] Glucose, P 124 70 - 140 mg/dL 03/14/2021 6:11 AM FIELD TRAINING AGENT M KTO Specimen Anatomical Collection Method Collection Time Receive d Time (Source) Location / / Volume Laterality Blood (Blood, 03/14/2021 5:41 AM 03/14/20 5:48 Venous) FIELD TRAINING AGENT AM FIELD TRAINING AGENT Nola Huitron APRN C.N.P., M.S.N. LAB BLOOD ADD-O N Performing Organization Address City/State/ZIP Code Phon e Number [facility]- [address] [place] [phone] [place] [address] [place] [address] (ABNORMAL) CBC without Differential (03/14/2021 5:41 AM FIELD TRAINING AGENT) [facility] gist Method Time Signature Hemoglobin 7.9 (L) 11.6 - 03/14/2021 MKTO 15.0 g/dL 6:11 AM FIELD TRAINING AGENT Hematocrit 23.2 (L) 35.5 - 03/14/2021 MKTO 44.9 % 6:11 AM FIELD TRAINING AGENT Erythrocytes 2.40 (L) 3.92 - 03/14/2021 MKTO 5.13 6:11 AM FIELD TRAINING AGENT x10(12)/L MCV 96.7 78.2 - 03/14/2021 MKTO 97.9 fL 6:11 AM FIELD TRAINING AGENT RBC Distrib Width 22.8 (H) 12.2 - 03/14/2021 MKTO 16.1 % 6:11 AM FIELD TRAINING AGENT Platelet Count 90 (L) 157 - 371 03/14/2021 MKTO x10(9)/L 6:11 AM FIELD TRAINING AGENT Leukocytes 6.6 3.4 - 9.6 03/14/2021 MKTO x10(9)/L 6:11 AM FIELD TRAINING AGENT Specimen Anatomical Collection Method Collection Time Receive d Time (Source) Location / / Volume Laterality Blood (Blood, 03/14/2021 5:41 AM 03/14/20 5:48 Venous) FIELD TRAINING AGENT AM FIELD TRAINING AGENT Kiran Thomas APRNP., M.S.N. LAB BLOOD ADD-O N Performing Organization Address [facility]/ZIP Code Phon e Number [address] [address] [place] [address] (ABNORMAL) Hepatic Function Panel (03/14/2021 5:40 AM FIELD TRAINING AGENT) [facility] gist Method Time Signature Bilirubin, Total, P 6.0 (H) <=1.2 03/14/2021 [facility] mg/dL 10:49 AM FIELD TRAINING AGENT Bilirubin, Direct, P 2.5 (H) 0.0 - 0.3 03/14/2021 MKTO mg/dL 10:49 AM FIELD TRAINING AGENT Aspartate 48 (H) 8 - 43 03/14/2021 MKTO Aminotransferase U/L 10:49 AM FIELD TRAINING AGENT (AST), P Alanine 10 7 - 45 03/14/2021 MKTO Aminotransferase U/L 10:49 AM FIELD TRAINING AGENT (ALT), P Alkaline 64 35 - 104 03/14/2021 MKTO Phosphatase, P U/L 10:49 AM FIELD TRAINING AGENT Albumin, P 4.3 3.5 - 5.0 03/14/2021 MKTO g/dL 10:49 AM FIELD TRAINING AGENT Protein, Total, P 5.7 (L) 6.3 - 7.9 03/14/2021 MKTO g/dL 10:49 AM FIELD TRAINING AGENT Specimen Anatomical Collection Method Collection Time Receive d Time (Source) Location / / Volume Laterality Blood (Blood, 03/14/2021 5:40 AM 03/14/20 Venous) FIELD TRAINING AGENT 10:24 AM FIELD TRAINING AGENT Leslie Kwong M.D. LAB BLOOD ADD-ON Performing Organization Address City/[facility]/ZIP Code Phon e Number [facility]- [address] [place] [phone] [place] [address] DX Chest Portable 1 View (03/14/2021 4:33 AM FIELD TRAINING AGENT) Anatomical Region Laterality Modality Chest, Thoracic RST LOS, Thoracic ARZ LOS, Thoracic N/A Digital Radiography FLA LOS Specimen (Source) Anatomical Collection Method Collection Time Re ceived Time Location / / Volume Laterality 03/14/2021 7:56 AM FIELD TRAINING AGENT Impressions 03/14/2021 7:58 AM FIELD TRAINING AGENT Persistent areas of bibasilar atelectasis or infiltrate more prominent on the right. Narrative 03/14/2021 7:58 AM FIELD TRAINING AGENT EXAM: DX CHEST PORTABLE 1 VIEW COMPARISON: [...] PROCE PERCY Glucose, POCT (03/14/2021 12:06 AM FIELD TRAINING AGENT) P athologist Signature Glucose, POCT, 116 70 - 140 03/14/2021 MKTO B mg/dL 12:06 AM FIELD TRAINING AGENT Specimen Anatomical Collection Method Collection Time Receive d Time (Source) Location / / Volume Laterality Blood 03/14/2021 12:06 03/14/2021 AM FIELD TRAINING AGENT 12:23 AM FIELD TRAINING AGENT Generic [facility]als LAB POCT ORDERABLES-MANUAL Performing Organization Address City/State/ZIP Code Phon e Number [facility]- [address] [place] [phone] [place] [address] (ABNORMAL) Hemoglobin (03/13/2021 6:29 PM FIELD TRAINING AGENT) athologist Signature Hemoglobin 8.0 (L) 11.6 - 15.0 03/13/2021 MKTO g/dL 6:45 PM FIELD TRAINING AGENT Specimen Anatomical Collection Method Collection Time Receive d Time (Source) Location / / Volume Laterality Blood (Blood, 03/13/2021 6:29 PM 03/13/20 6:40 Venous) FIELD TRAINING AGENT PM FIELD TRAINING AGENT Tariq CheryBSumaSSuma LAB BLOOD ADD-ON Performing Organization Address City/[facility]/ZIP Code Phon e Number [facility]- [address] [place] [phone] [place] [address] Glucose, POCT (03/13/2021 6:16 PM FIELD TRAINING AGENT) athologist Signature Glucose, POCT, 112 70 - 140 03/13/2021 MK[facility] B mg/dL 6:16 PM FIELD TRAINING AGENT Specimen Anatomical Collection Method Collection Time Receive d Time (Source) Location / / Volume Laterality Blood 03/13/2021 6:16 PM FIELD TRAINING AGENT 11:28 PM FIELD TRAINING AGENT Generic [facility] LAB POCT ORDERABLES-MANUAL Performing Organization Address [facility] - [place]/[facility] Phon e Number [address] [phone] [place] [address] (ABNORMAL) Hemoglobin (03/13/2021 4:28 PM FIELD TRAINING AGENT) athologist Signature Hemoglobin 8.0 (L) 11.6 - 15.0 03/13/2021 [facility] g/dL 4:39 PM FIELD TRAINING AGENT Specimen Anatomical Collection Method Collection Time Receive d Time (Source) Location / / Volume Laterality Blood (Blood, 03/13/2021 4:28 PM 03/13/20 4:35 Arterial) FIELD TRAINING AGENT PM FIELD TRAINING AGENT Tariq CheryB.S. LAB BLOOD ADD-ON Performing Organization Address City/[facility] [place]/ZIP Code Phon e Number [facility]- [address] [place] [phone] [place] [address] Transfuse Red Blood Cells : (03/13/2021 12:13 PM FIELD TRAINING AGENT) Tariq CheryB.S. BLOOD TRANSFUSION ORDERABLES Transfuse Red Blood Cells : , 1 Units (03/13/2021 12:13 PM FIELD TRAINING AGENT) Tariq CheryB.S. BLOOD TRANSFUSION ORDERABLES Glucose, POCT (03/13/2021 11:46 AM FIELD TRAINING AGENT) P athologist Signature Glucose, POCT, 130 70 - 140 03/13/2021 [facility] B mg/dL 11:46 AM FIELD TRAINING AGENT Specimen Anatomical Collection Method Collection Time Receive d Time (Source) Location / / Volume Laterality Blood 03/13/2021 11:46 03/13/2021 AM FIELD TRAINING AGENT 11:54 AM FIELD TRAINING AGENT Generic Rals LAB POCT ORDERABLES-MANUAL Performing Organization Address [facility] [place]/[facility] Phon e Number [address] [phone] [place] [address] (ABNORMAL) Ferritin (03/13/2021 8:28 AM FIELD TRAINING AGENT) P athologist Signature Ferritin, S 801 (H) 6 - 175 03/13/2021 [facility] mcg/L 10:15 AM FIELD TRAINING AGENT Comment: Biotin has been identified by the [...] 03/13/2021 8:28 AM 03/13/20 21 8:32 Venous) FIELD TRAINING AGENT AM FIELD TRAINING AGENT Tariq CheryB.S. LAB BLOOD ADD-ON Performing Organization Address City/[facility] [place]/ZIP [place] Phon e Number [facility]- [address] [place] [phone] [place] [address] [address] [place] [address] (ABNORMAL) Folate (03/13/2021 8:28 AM FIELD TRAINING AGENT) athologist Signature Folate, S 2.8 (L) >=4.0 mcg/L 03/13/2021 MKTO 2:38 PM FIELD TRAINING AGENT Comment: Biotin has been identified by the [...] (Blood, 03/13/2021 8:28 AM 03/13/20 8:32 Venous) FIELD TRAINING AGENT AM FIELD TRAINING AGENT Tariq Santoyo.S. LAB BLOOD ADD-ON Performing Organization Address City/[facility] Phon e Number [address] [phone] [place] [address] [address] Vitamin B12 Assay (03/13/2021 8:28 AM FIELD TRAINING AGENT) athologist Signature Vitamin B12 690 291 - 124 03/13/2021 [facility] Assay, S ng/L 4:13 PM FIELD TRAINING AGENT Comment: Biotin has been identified by the [...] (Blood, 03/13/2021 8:28 AM 03/13/20 8:32 Venous) FIELD TRAINING AGENT AM FIELD TRAINING AGENT Tariq Santoyo.S. LAB BLOOD ADD-ON Performing Organization Address City/[facility] Phon e Number [facility] [address] [phone] [place] [address] System [place] [address] (ABNORMAL) Iron and Total Iron-Binding Capacity (03/13/2021 8:28 AM FIELD TRAINING AGENT) athologist Signature Iron 77 35 - 145 03/13/2021 [facility] mcg/dL 10:15 AM FIELD TRAINING AGENT Total Iron 68 (L) 250 - 400 03/13/2021 [facility] Binding mcg/dL 10:15 AM FIELD TRAINING AGENT Capacity Percent >90 (H) 14 - 50 % 03/13/2021 [facility] Saturation 10:15 AM FIELD TRAINING AGENT Specimen Anatomical Collection Method Collection Time Receive d Time (Source) Location / / Volume Laterality Blood (Blood, 03/13/2021 8:28 AM 03/13/20 8:32 Venous) FIELD TRAINING AGENT AM FIELD TRAINING AGENT Tariq Santillan LAB BLOOD ADD-ON Performing Organization Address City/State/ZIP Code Phon e Number [address] [phone] [place] [address] [address] Patient Status (03/13/2021 5:37 AM FIELD TRAINING AGENT) athologist Signature FIO2 0.30 0.21=AIR 03/13/2021 5:56 MKTO AM FIELD TRAINING AGENT Specimen Anatomical Collection Method Collection Time Receive d Time (Source) Location / / Volume Laterality Blood 03/13/2021 5:37 AM 5:50 FIELD TRAINING AGENT AM FIELD TRAINING AGENT Ivan Lazo D.O. LAB BLOOD NON ADD-ON Performing Organization Address City/State/ZIP Code Phon e Number [address] [phone] [place] [address] System [place] [address] (ABNORMAL) Blood Gas with Coox, Arterial (03/13/2021 5:37 AM FIELD TRAINING AGENT) athologist Signature P O2 141 (H) 83 - 108 03/13/2021 [facility] mm Hg 5:56 AM FIELD TRAINING AGENT P CO2 30 (L) 32 - 45 mm 03/13/2021 [facility] Hg 5:56 AM FIELD TRAINING AGENT pH 7.46 (H) 7.35 - 03/13/2021 [facility] 7.45 pH 5:56 AM FIELD TRAINING AGENT Base Excess -2 -2 - 3 03/13/2021 [facility] mmol/L 5:56 AM FIELD TRAINING AGENT HCO3 21 (L) 22 - 26 03/13/2021 [facility] mmol/L 5:56 AM FIELD TRAINING AGENT Hemoglobin, B 7.2 (L) 11.6 - 03/13/2021 [facility] 15.0 g/dL 5:56 AM FIELD TRAINING AGENT O2Hb 97.9 94.0 - 03/13/2021 [facility] 98.0 % 5:56 AM FIELD TRAINING AGENT COHb 1.5 <3.0 % 03/13/2021 [facility] 5:56 AM FIELD TRAINING AGENT MetHb 0.0 <1.5 % 03/13/2021 [facility] 5:56 AM FIELD TRAINING AGENT CtO2 10.3 (L) 18.0 - 03/13/2021 [facility] 21.0 vol % 5:56 AM FIELD TRAINING AGENT Arterial Art Line 03/13/2021 [facility] Sample Site 5:56 AM FIELD TRAINING AGENT Specimen Anatomical Collection Method Collection Time Receive d Time (Source) Location / / Volume Laterality Blood (Blood, 03/13/2021 5:37 AM 03/13/20 5:50 Arterial) FIELD TRAINING AGENT AM FIELD TRAINING AGENT Ivan Lazo D.O. LAB BLOOD NON ADD-ON Performing Organization Address City/State/ZIP Code Phon e Number [phone] [place] [address] [place] [address] System [address] Phosphorus Inorganic (03/13/2021 5:37 AM FIELD TRAINING AGENT) P athologist Signature Phosphorus 3.1 2.5 - 4.5 03/13/2021 [facility] (Inorganic), P mg/dL 6:17 AM FIELD TRAINING AGENT Specimen Anatomical Collection Method Collection Time Receive d Time (Source) Location / / Volume Laterality Blood (Blood, 03/13/2021 5:37 AM 03/13/20 5:50 Venous) FIELD TRAINING AGENT AM FIELD TRAINING AGENT Barrera Vargas M.D. LAB BLOOD ADD-ON Performing Organization Address City/State/ZIP Code Phon e Number [facility]- [address] [place] [phone] [place] [address] [address] [place] [address] (ABNORMAL) Magnesium (03/13/2021 5:37 AM FIELD TRAINING AGENT) P athologist Signature Magnesium, P 2.6 (H) 1.7 - 2.3 03/13/2021 [facility] mg/dL 6:17 AM FIELD TRAINING AGENT Specimen Anatomical Collection Method Collection Time Receive d Time (Source) Location / / Volume Laterality Blood (Blood, 03/13/2021 5:37 AM 03/13/20 5:50 Venous) FIELD TRAINING AGENT AM FIELD TRAINING AGENT Barrera Vargas M.D. LAB BLOOD ADD-ON Performing Organization Address City/[facility] Phon e Number [facility]- [address] [place] [address] [facility] [place] [address] System [place] [address] Triglycerides (03/13/2021 5:37 AM FIELD TRAINING AGENT) P athologist Signature Triglycerides 127 mg/dL 03/13/2021 [facility] 6:17 AM FIELD TRAINING AGENT Comment: ----REFERENCE VALUE---- Normal: <150 Borderline high: 150-199 High: 200-499 Very high: > or =500 Specimen Anatomical Collection Method Collection Time Receive d Time (Source) Location / / Volume Laterality Blood (Blood, 03/13/2021 5:37 AM 03/13/20 5:50 Venous) FIELD TRAINING AGENT AM FIELD TRAINING AGENT Barrera Vargas M.D. LAB BLOOD ADD-ON Performing Organization Address City/State/ZIP [place] Phon e Number [facility]- [address] [place] [phone] [place] [address] [address] [place] [address] (ABNORMAL) Comprehensive Metabolic Panel (03/13/2021 5:37 AM FIELD TRAINING AGENT) Analysis Performed At Patho logist Time Signature Potassium, P 3.9 3.6 - 5.2 03/13/2021 [facility] mmol/L 6:17 AM FIELD TRAINING AGENT Sodium, P 135 135 - 145 03/13/2021 [facility] mmol/L 6:17 AM FIELD TRAINING AGENT Chloride, P 103 98 - 107 03/13/2021 [facility] mmol/L 6:17 AM FIELD TRAINING AGENT Bicarbonate, P 20 (L) 22 - 29 03/13/2021 [facility] mmol/L 6:17 AM FIELD TRAINING AGENT Anion Gap, P 12 7 - 15 03/13/2021 [facility] 6:17 AM FIELD TRAINING AGENT BUN (Blood Urea 8 6 - 21 03/13/2021 MKTO Nitrogen), P mg/dL 6:17 AM FIELD TRAINING AGENT Creatinine 0.56 (L) 0.59 - 03/13/2021 [facility] 1.04 mg/dL 6:17 AM FIELD TRAINING AGENT eGFR-Black/Afri >90 >=60 03/13/2021 [facility] can Belgian mL/min/BSA 6:17 AM FIELD TRAINING AGENT Comment: ----ADDITIONAL INFORMATION---- Estimated GFR calculated using the 2009 CKD_EPI creatinine equation. eGFR Non-Black/ >90 >=60 mL/min/BSA 03/13/2021 6:17 AM FIELD TRAINING AGENT MKTO Comment: ----ADDITIONAL INFORMATION---- Estimated GFR calculated using the 2009 CKD_EPI creatinine equation. Calcium, Total, P 9.0 8.6 - 10.0 mg/dL 03/13/2021 6:17 AM FIELD TRAINING AGENT MK[facility] Glucose, P 115 70 - 140 mg/dL 03/13/2021 6:17 AM FIELD TRAINING AGENT M KTO Protein, Total, P 5.7 (L) 6.3 - 7.9 g/dL 03/13/2021 6:17 A M FIELD TRAINING AGENT MKTO Albumin, P 3.9 3.5 - 5.0 g/dL 03/13/2021 6:17 AM FIELD TRAINING AGENT M KTO Aspartate Aminotransferase 64 (H) 8 - 43 U/L 03/13/2021 6 :17 AM FIELD TRAINING AGENT MKTO (AST), P Alkaline Phosphatase, P 90 35 - 104 U/L 03/13/2021 6: 17 AM FIELD TRAINING AGENT MKTO Alanine Aminotransferase 14 7 - 45 U/L 03/13/2021 6:1 7 AM FIELD TRAINING AGENT MK[facility] (ALT), P Bilirubin, Total, P 6.1 (H) <=1.2 mg/dL 03/13/2021 6:17 AM FIELD TRAINING AGENT MKTO Specimen Anatomical Collection Method Collection Time Receive d Time (Source) Location / / Volume Laterality Blood (Blood, 03/13/2021 5:37 AM 03/13/20 5:50 Venous) FIELD TRAINING AGENT AM FIELD TRAINING AGENT Barrera Vargas M.D. LAB BLOOD ADD-ON Performing Organization Address City/State/ZIP Code Phon e Number [facility]- [address] [place] [phone] [place] [address] [place] [address] (ABNORMAL) CBC with Differential, Blood (03/13/2021 5:37 AM FIELD TRAINING AGENT) [facility] Method Time Signature Hemoglobin 7.1 (L) 11.6 - 03/13/2021 MKTO 15.0 g/dL 7:27 AM FIELD TRAINING AGENT Hematocrit 21.0 (L) 35.5 - 03/13/2021 MKTO 44.9 % 7:27 AM FIELD TRAINING AGENT Erythrocytes 2.11 (L) 3.92 - 03/13/2021 MK[facility] 5.13 7:27 AM FIELD TRAINING AGENT x10(12)/L MCV 99.5 (H) 78.2 - 03/13/2021 MKTO 97.9 fL 7:27 AM FIELD TRAINING AGENT RBC Distrib Width 20.1 (H) 12.2 - 03/13/2021 MKTO 16.1 % 7:27 AM FIELD TRAINING AGENT Platelet Count 101 (L) 157 - 371 03/13/2021 [facility] x10(9)/L 7:27 AM FIELD TRAINING AGENT Leukocytes 8.4 3.4 - 9.6 03/13/2021 [facility] x10(9)/L 7:27 AM FIELD TRAINING AGENT Neutrophils 6.72 (H) 1.56 - 03/13/2021 [facility] 6.45 7:27 AM FIELD TRAINING AGENT x10(9)/L Lymphocytes 0.85 (L) 0.95 - 03/13/2021 MKTO 3.07 7:27 AM FIELD TRAINING AGENT x10(9)/L Monocytes 0.86 (H) 0.26 - 03/13/2021 MKTO 0.81 7:27 AM FIELD TRAINING AGENT x10(9)/L Eosinophils <0.03 0.03 - 03/13/2021 MKTO 0.48 7:27 AM FIELD TRAINING AGENT x10(9)/L Basophils <0.03 0.01 - 03/13/2021 MKTO 0.08 7:27 AM FIELD TRAINING AGENT x10(9)/L Specimen Anatomical Collection Method Collection Time Receive d Time (Source) Location / / Volume Laterality Blood (Blood, 03/13/2021 5:37 AM 03/13/20 5:50 Venous) FIELD TRAINING AGENT AM FIELD TRAINING AGENT Barrera Vargas M.D. LAB BLOOD ADD-ON Performing Organization Address City/State/ZIP Code Phon e Number [facility]- [address] [place] [phone] [place] [address] System [address] (ABNORMAL) Ammonia (03/13/2021 5:37 AM FIELD TRAINING AGENT) P athologist Signature Ammonia, P 110 (H) <=51 03/13/2021 [facility] mcmol/L 6:16 AM FIELD TRAINING AGENT Specimen Anatomical Collection Method Collection Time Receive d Time (Source) Location / / Volume Laterality Blood (Blood, 03/13/2021 5:37 AM 03/13/20 5:49 Venous) FIELD TRAINING AGENT AM FIELD TRAINING AGENT Barrera Vargas M.D. LAB BLOOD NON ADD-ON Performing Organization Address City/[facility] Code Phon e Number [address] [phone] [place] [address] DX Chest Portable 1 View (03/13/2021 4:32 AM FIELD TRAINING AGENT) Anatomical Region Laterality Modality Chest, Thoracic RST LOS, Thoracic ARZ LOS, Thoracic N/A Digital Radiography FLA LOS Specimen (Source) Anatomical Collection Method Collection Time Re ceived Time Location / / Volume Laterality 03/13/2021 8:07 AM FIELD TRAINING AGENT Impressions 03/13/2021 8:08 AM FIELD TRAINING AGENT Persistent right basilar infiltrate or a telectasis. Narrative 03/13/2021 8:08 AM FIELD TRAINING AGENT EXAM: DX CHEST PORTABLE 1 VIEW COMPARISON: [...] (ABNORMAL) Basic Metabolic Panel (03/13/2021 1:20 AM FIELD TRAINING AGENT) Analysis Performed At Patho logist Time Signature Potassium, P 2.9 (L) 3.6 - 5.2 03/13/2021 [facility] mmol/L 1:58 AM FIELD TRAINING AGENT Sodium, P 134 (L) 135 - 145 03/13/2021 [facility] mmol/L 1:58 AM FIELD TRAINING AGENT Chloride, P 99 98 - 107 03/13/2021 [facility] mmol/L 1:58 AM FIELD TRAINING AGENT Bicarbonate, P 20 (L) 22 - 29 03/13/2021 [facility] mmol/L 1:58 AM FIELD TRAINING AGENT Anion Gap, P 15 7 - 15 03/13/2021 MKTO 1:58 AM FIELD TRAINING AGENT BUN (Blood Urea 8 6 - 21 03/13/2021 MKTO Nitrogen), P mg/dL 1:58 AM FIELD TRAINING AGENT Creatinine 0.56 (L) 0.59 - 03/13/2021 MKTO 1.04 mg/dL 1:58 AM FIELD TRAINING AGENT eGFR-Black/Afri >90 >=60 03/13/2021 MKTO can Belgian mL/min/BSA 1:58 AM FIELD TRAINING AGENT Comment: ----ADDITIONAL INFORMATION---- Estimated GFR calculated using the 2009 CKD_EPI creatinine equation. eGFR Non-Black/ >90 >=60 mL/min/BSA 03/13/2021 1:58 AM FIELD TRAINING AGENT MKTO Comment: ----ADDITIONAL INFORMATION---- Estimated GFR calculated using the 2009 CKD_EPI creatinine equation. Calcium, Total, P 8.9 8.6 - 10.0 mg/dL 03/13/2021 1:58 AM FIELD TRAINING AGENT MKTO Glucose, P 120 70 - 140 mg/dL 03/13/2021 1:58 AM FIELD TRAINING AGENT M KTO Specimen Anatomical Collection Method Collection Time Receive d Time (Source) Location / / Volume Laterality Blood (Blood, 03/13/2021 1:20 AM 03/13/20 1:23 Venous) FIELD TRAINING AGENT AM FIELD TRAINING AGENT Ivan Lazo D.O. LAB BLOOD ADD-ON Performing Organization Address City/State/ZIP Code Phon e Number [facility]- [address] [place] [phone] [place] [address] [address] (ABNORMAL) Hemoglobin (03/13/2021 12:11 AM FIELD TRAINING AGENT) athologist Signature Hemoglobin 7.4 (L) 11.6 - 15.0 03/13/2021 MKTO g/dL 12:18 AM FIELD TRAINING AGENT Specimen Anatomical Collection Method Collection Time Receive d Time (Source) Location / / Volume Laterality Blood (Blood, 03/13/2021 12:11 03/13/2021 Venous) AM FIELD TRAINING AGENT 12:15 AM FIELD TRAINING AGENT Barrera Vargas M.D. LAB BLOOD ADD-ON Performing Organization Address City/[facility]/ZIP Code Phon e Number [facility]- [address] [place] [phone] [place] [address] Glucose, POCT (03/12/2021 11:44 PM FIELD TRAINING AGENT) athologist Signature Glucose, POCT, 120 70 - 140 03/12/2021 MKTO B mg/dL 11:44 PM FIELD TRAINING AGENT Specimen Anatomical Collection Method Collection Time Receive d Time (Source) Location / / Volume Laterality Blood 03/12/2021 11:44 03/12/2021 PM FIELD TRAINING AGENT 11:51 PM FIELD TRAINING AGENT Generic Rals LAB POCT ORDERABLES-MANUAL Performing Organization Address City/[facility]/ZIP Code Phon e Number [facility]- [address] [place] [phone] [place] [address] System in [address] Ethyl Glucuronide Screen with Reflex, Urine (03/12/2021 11:12 PM FIELD TRAINING AGENT) [facility] gist Method Time Signature Ethyl Negative Cutoff: 03/14/2021 [facility] Glucuronide Scrn 500 ng/mL 9:46 AM FIELD TRAINING AGENT w/Reflex, U Comment: ----ADDITIONAL INFORMATION---- This test was developed and its performa nce characteristics determined by [facility] in a manner consistent with CLIA requirements. This test has not been cleared or approved by the [place] d and Drug Administration. Specimen Anatomical Collection Method Collection Time Receive d Time (Source) Location / / Volume Laterality Urine (Urine, 03/12/2021 11:12 03/14/2021 8:00 Clean Catch) PM FIELD TRAINING AGENT AM FIELD TRAINING AGENT Sera Morgan P.A.-C. LAB URINE ORDERABLES Performing Organization Address City/State/ZIP Code Phon e Number [facility] [address] [place] [address] [facility] [place] [address] Laboratory Medicine and Pathology [address] [place] INTUB W ETT, LDA ANE ENDOTRACHEAL AIRWAY (03/12/2021 10:30 PM FIELD TRAINING AGENT) Narrative Barrera To M.D. - 2020 10:30 PM FIELD TRAINING AGENT Barrera To M.D. ? 03/12/2021 ??6:07 PM Intubation Date/Time: 03/12/2021 10:30 PM Performed by: Barrera To M.D. Authorized by: Barrera To M.D. Patient location during procedure: ICU / PCU PROCEDURE DETAILS: Mask difficulty assessment: easy mask Final airway type: video laryngoscope Laryngeal Manipulation: no ?? Final best view of glottic structures - Cormack/Lehane Score: grade 2A ETT location: oral VL device: glide scope Buda scope blade size: 3 Adult tube size: [...] ORDERABLES (ABNORMAL) Glucose, POCT (03/12/2021 6:11 PM FIELD TRAINING AGENT) P athologist Signature Glucose, POCT, 170 (H) 70 - 140 03/12/2021 MKTO B mg/dL 6:11 PM FIELD TRAINING AGENT Specimen Anatomical Collection Method Collection Time Receive d Time (Source) Location / / Volume Laterality Blood 03/12/2021 6:11 PM 6:23 FIELD TRAINING AGENT PM FIELD TRAINING AGENT Generic Rals LAB POCT ORDERABLES-MANUAL Performing Organization Address City/State/ZIP Code Phon e Number [facility]- [address] [place] [phone] [place] [address] [place] [address] System in [place] [id number] [facility] [place] PARACENTESIS ABD WO IMG (03/12/2021 6:02 PM FIELD TRAINING AGENT) Narrative Barrera To M.D. - 2020 6:02 PM FIELD TRAINING AGENT Barrera To M.D. ? 03/12/2021 ??6:07 PM [...] yes ?? Complications: no apparent complications ?? Barerra Vargas M.D. PROCEDURE/MINOR SURGICAL ORDERABLES THORACENTESIS (03/12/2021 6:02 PM FIELD TRAINING AGENT) Narrative Barrera To M.D. - 2020 6:02 PM FIELD TRAINING AGENT Barrera To M.D. ? 03/12/2021 ??6:07 PM Thoracentesis Date/Time: 03/12/2021 6:02 PM Performed by: Barrera To M.D. Authorized by: Barrera To M.D. PROCEDURE DETAILS Location: right mid-axillary Intercostal space: 3rd Puncture method: [id number] cathete r Number of attempts: 1 Drainage [...] lidocaine Barrera Vargas M.D. PROCEDURE/MINOR SURGICAL ORDERABLES SC INS NON-ALEN CVC >5YR, SC US GUIDE VASC ACCESS, LDA ANE CENTRAL LINE TRIPLE LUMEN, MC ANE CENTRAL LINE GENERIC PERFORMABLE (03/12/2021 6:02 PM FIELD TRAINING AGENT) Narrative Barrera To M.D. - 2020 6:02 PM FIELD TRAINING AGENT Barrera To M.D. ? 03/12/2021 ??6:07 PM [...] Red Blood Cells : (03/12/2021 5:39 PM FIELD TRAINING AGENT) Barrera Vargas M.D. BLOOD TRANSFUSION ORDERA BLES Transfuse Red Blood Cells : , 1 Units (03/12/2021 5:39 PM FIELD TRAINING AGENT) Barrera Vargas M.D. BLOOD TRANSFUSION ORDERA BLES (ABNORMAL) Hemoglobin (03/12/2021 5:35 PM FIELD TRAINING AGENT) P athologist Signature Hemoglobin 7.6 (L) 11.6 - 15.0 03/12/2021 MKTO g/dL 5:50 PM FIELD TRAINING AGENT Specimen Anatomical Collection Method Collection Time Receive d Time (Source) Location / / Volume Laterality Blood (Blood, 03/12/2021 5:35 PM 03/12/20 5:46 Venous) FIELD TRAINING AGENT PM FIELD TRAINING AGENT Barrera Vargas M.D. LAB BLOOD ADD-ON Performing Organization Address City/State/ZIP Code Phon e Number [facility]- [address] [place] [phone] [place] [address] Calcium, Ionized (03/12/2021 5:35 PM FIELD TRAINING AGENT) athologist Signature Calcium, 4.70 4.65 - 5.30 03/12/2021 MKTO Ionized, B mg/dL 5:49 PM FIELD TRAINING AGENT Specimen Anatomical Collection Method Collection Time Receive d Time (Source) Location / / Volume Laterality Blood 03/12/2021 5:35 PM 5:46 FIELD TRAINING AGENT PM FIELD TRAINING AGENT Authorizing Provider Result Woodrow Vargas M.D. LAB BLOOD NON ADD-ON Performing Organization Address City/State/ZIP Code Phon e Number [facility]- [address] [place] [address] [facility] [place] [address] (ABNORMAL) pH (03/12/2021 5:35 PM FIELD TRAINING AGENT) P athologist Signature pH 7.46 (H) 7.35 - 7.45 03/12/2021 MKTO pH 5:49 PM FIELD TRAINING AGENT Specimen Anatomical Collection Method Collection Time Receive d Time (Source) Location / / Volume Laterality Blood 03/12/2021 5:35 PM 5:46 FIELD TRAINING AGENT PM FIELD TRAINING AGENT Authorizing Provider Result Woodrow Vargas M.D. LAB HISTORICAL ORDERS Performing Organization Address City/State/ZIP Code Phon e Number [facility]- [address] [place] [phone] [place] [address] System [address] (ABNORMAL) Ammonia (03/12/2021 5:35 PM FIELD TRAINING AGENT) P athologist Signature Ammonia, P 80 (H) <=51 03/12/2021 MKTO mcmol/L 6:06 PM FIELD TRAINING AGENT Specimen Anatomical Collection Method Collection Time Receive d Time (Source) Location / / Volume Laterality Blood (Blood, 03/12/2021 5:35 PM 03/12/20 5:46 Venous) FIELD TRAINING AGENT PM FIELD TRAINING AGENT Barrera Vargas M.D. LAB BLOOD NON ADD-ON Performing Organization Address City/State/ZIP Code Phon e Number [facility]- [address] [place] [phone] [place] [address] (ABNORMAL) Phosphorus Inorganic (03/12/2021 5:35 PM FIELD TRAINING AGENT) P athologist Signature Phosphorus 4.6 (H) 2.5 - 4.5 03/12/2021 MKTO (Inorganic), P mg/dL 6:07 PM FIELD TRAINING AGENT Specimen Anatomical Collection Method Collection Time Receive d Time (Source) Location / / Volume Laterality Blood (Blood, 03/12/2021 5:35 PM 03/12/20 5:46 Venous) FIELD TRAINING AGENT PM FIELD TRAINING AGENT Barrera Vargas M.D. LAB BLOOD ADD-ON Performing Organization Address City/State/ZIP Code Phon e Number [facility]- [address] [place] [address] [place] [address] (ABNORMAL) Magnesium (03/12/2021 5:35 PM FIELD TRAINING AGENT) P athologist Signature Magnesium, P 3.7 (H) 1.7 - 2.3 03/12/2021 MKTO mg/dL 6:07 PM FIELD TRAINING AGENT Specimen Anatomical Collection Method Collection Time Receive d Time (Source) Location / / Volume Laterality Blood (Blood, 03/12/2021 5:35 PM 03/12/20 5:46 Venous) FIELD TRAINING AGENT PM FIELD TRAINING AGENT Barrera Vargas M.D. LAB BLOOD ADD-ON Performing Organization Address City/State/ZIP Code Phon e Number [facility]- [facility] [place] [address] [place] [address] System in [place] [address] [facility] (ABNORMAL) Comprehensive Metabolic Panel (03/12/2021 5:35 PM FIELD TRAINING AGENT) Analysis Performed At Patho logist Time Signature Potassium, P 2.5 (CL) 3.6 - 5.2 03/12/2021 MKTO mmol/L 6:08 PM FIELD TRAINING AGENT Sodium, P 133 (L) 135 - 145 03/12/2021 MKTO mmol/L 6:07 PM FIELD TRAINING AGENT Chloride, P 98 98 - 107 03/12/2021 MKTO mmol/L 6:07 PM FIELD TRAINING AGENT Bicarbonate, P 20 (L) 22 - 29 03/12/2021 MKTO mmol/L 6:07 PM FIELD TRAINING AGENT Anion Gap, P 15 7 - 15 03/12/2021 MKTO 6:07 PM FIELD TRAINING AGENT BUN (Blood Urea 9 6 - 21 03/12/2021 MKTO Nitrogen), P mg/dL 6:07 PM FIELD TRAINING AGENT Creatinine 0.57 (L) 0.59 - 03/12/2021 MKTO 1.04 mg/dL 6:07 PM FIELD TRAINING AGENT eGFR-Black/Afri >90 >=60 03/12/2021 MKTO can Belgian mL/min/BSA 6:07 PM FIELD TRAINING AGENT Comment: ----ADDITIONAL INFORMATION---- Estimated GFR calculated using the 2009 CKD_EPI creatinine equation. eGFR Non-Black/ >90 >=60 mL/min/BSA 03/12/2021 6:07 PM FIELD TRAINING AGENT MKTO Comment: ----ADDITIONAL INFORMATION---- Estimated GFR calculated using the 2009 CKD_EPI creatinine equation. Calcium, Total, P 8.7 8.6 - 10.0 mg/dL 03/12/2021 6:07 PM FIELD TRAINING AGENT MKTO Glucose, P 190 (H) 70 - 140 mg/dL 03/12/2021 6:07 PM FIELD TRAINING AGENT M KTO Protein, Total, P 5.5 (L) 6.3 - 7.9 g/dL 03/12/2021 6:07 P M FIELD TRAINING AGENT MKTO Albumin, P 3.4 (L) 3.5 - 5.0 g/dL 03/12/2021 6:07 PM FIELD TRAINING AGENT M KTO Aspartate Aminotransferase 66 (H) 8 - 43 U/L 03/12/2021 6 :07 PM FIELD TRAINING AGENT MKTO (AST), P Alkaline Phosphatase, P 97 35 - 104 U/L 03/12/2021 6: 07 PM FIELD TRAINING AGENT MKTO Alanine Aminotransferase 16 7 - 45 U/L 03/12/2021 6:0 7 PM FIELD TRAINING AGENT MKTO (ALT), P Bilirubin, Total, P 6.0 (H) <=1.2 mg/dL 03/12/2021 6:07 PM FIELD TRAINING AGENT MKTO Specimen Anatomical Collection Method Collection Time Receive d Time (Source) Location / / Volume Laterality Blood (Blood, 03/12/2021 5:35 PM 03/12/20 5:46 Venous) FIELD TRAINING AGENT PM FIELD TRAINING AGENT Barrera Vargas M.D. LAB BLOOD ADD-ON Performing Organization Address [facility] Phon e Number [address] [address] [place] [address] Bacterial Culture, Aerobic + Susc (03/12/2021 3:46 PM FIELD TRAINING AGENT) [facility] gist Method Time Signature Bacterial No growth 03/17/2021 MKTO Culture, after 5 7:38 AM FIELD TRAINING AGENT Aerobic + Susc days of incubation. Specimen Anatomical Collection Method Collection Time Receive d Time (Source) Location / / Volume Laterality Fluid 03/12/2021 3:46 PM 3:46 (Peritoneal FIELD TRAINING AGENT PM FIELD TRAINING AGENT Fluid) Comment: Specimen Source Site: Fluid Sera Morgan P.A.-C. LAB MICROBIOLOGY - GENERAL O RDERABLES Performing Organization Address City/[facility] Phon e Number [address] [address] [place] [address] System [address] Bacterial Culture, Anaerobic + Susc (03/12/2021 3:46 PM FIELD TRAINING AGENT) [facility] Method Time Signature Bacterial No growth 03/19/2021 MKTO Culture, after 7 8:26 AM FIELD TRAINING AGENT Anaerobic days of incubation. Specimen Anatomical Collection Method Collection Time Receive d Time (Source) Location / / Volume Laterality Fluid 03/12/2021 3:46 PM 1 3:46 (Peritoneal FIELD TRAINING AGENT PM FIELD TRAINING AGENT Fluid) Comment: Specimen Source Site: Fluid Sera Morgan P.A.-C. LAB MICROBIOLOGY - GENERAL O JOSE Performing Organization Address City/[facility] Phon e Number [facility]- [address] [place] [phone] [facility] [place] [phone] System [address] Gram Stain (03/12/2021 3:46 PM FIELD TRAINING AGENT) [facility] Method Time Signature Gram Stain No organisms seen. 03/12/2021 MKTO White blood cells present. 6:22 PM FIELD TRAINING AGENT Stain performed on concentrated cytospin preparation. Specimen Anatomical Collection Method Collection Time Receive d Time (Source) Location / / Volume Laterality Fluid 03/12/2021 3:46 PM 1 3:46 (Peritoneal FIELD TRAINING AGENT PM FIELD TRAINING AGENT Fluid) Comment: Specimen Source Site: Fluid Sera Morgan P.A.-C. LAB MICROBIOLOGY - GENERAL O JOSE Performing Organization Address City/[facility] Phon e Number [address] [phone] [facility] [place] [phone] System [address] Protein, Total, Body Fluid (03/12/2021 3:46 PM FIELD TRAINING AGENT) P athologist Signature Protein, 1.0 See Comment 03/14/2021 DTL Total, BF g/dL 10:40 AM FIELD TRAINING AGENT Comment: ----ADDITIONAL INFORMATION---- A pleural fluid total [...] ical findings. All other fluids refer to [email or web address].com for further inter pretive information. This test has been modified from the centrifuge separator tender's instructions. Its perform ance characteristics were determined by [facility] in a manner consistent with CLIA require ments. This test has not been cleared or approv ed by the U.S. Food and Drug Administration. Fluid Type, Protein, Total PERITONEAL 03/14/2021 1 0:06 AM FIELD TRAINING AGENT DTL Specimen Anatomical Collection Method Collection Time Receive d Time (Source) Location / / Volume Laterality Fluid 03/12/2021 3:46 PM 1 9:49 (Peritoneal FIELD TRAINING AGENT AM FIELD TRAINING AGENT Fluid) Sera Morgan P.A.-C. LAB BODY FLUIDS AND STOOLS O RDERABLES Performing Organization Address City/State/ZIP Code Phon e Number [facility] - [address] [place] [phone] [facility] [place] [address] Laboratories-[address] Cell Count and Differential, Body Fluid (03/12/2021 3:46 PM FIELD TRAINING AGENT) [facility] Method Time Signature Fluid Type Peritoneal/ 03/12/2021 MKTO Paracentesi 4:30 PM FIELD TRAINING AGENT s Gross Serous 03/12/2021 MKTO Appearance 4:33 PM FIELD TRAINING AGENT Total Nucleated 53 /mcL 03/12/2021 MKTO Cells 4:33 PM FIELD TRAINING AGENT Comment: ----REFERENCE VALUE---- Synovial: <150 Peritoneal: <500 Pleural: <500 Pericardial: <500 ----ADDITIONAL INFORMATION---- This test has been modified from the man ufacturer's instructions. Its performance characteri stics were determined by [facility] in a manner co nsistent with CLIA requirements. This test has not bee n cleared or approved by the U.S. Food and Drug Admin istration. Lymphocytes 31 Synovial: <75% % 03/12/2021 5:20 PM CS T MKTO Monocytes/Macrophages 63 Synovial: <70% % 03/12/2021 5:20 PM FIELD TRAINING AGENT MKTO Other Cells 6 % 03/12/2021 5:20 PM FIELD TRAINING AGENT MKTO Comment: ----REFERENCE VALUE---- The reference range and other method per formance specifications have not been established for this body fluid. The test result must be integrate d into the clinical context for interpretation. Other Cells Are: Mesothelial cells 03/12/2021 5:20 PM FIELD TRAINING AGENT MKTO Comment SeeComment 03/12/2021 4:33 PM FIELD TRAINING AGENT MKTO Comment: will be reviewed py path. Reviewed by: Dr. Fox 03/13/2021 8:07 AM FIELD TRAINING AGENT MKTO Comment: REVISED RESULTS ----PREVIOUSLY REPORTED ---- DNR, Flagged as: Normal (Reported 03/12/2021 17:20) Specimen Anatomical Collection Method Collection Time Receive d Time (Source) Location / / Volume Laterality Fluid 03/12/2021 3:46 PM 3:46 (Peritoneal FIELD TRAINING AGENT PM FIELD TRAINING AGENT Fluid) Sera Morgan P.A.-C. LAB BODY FLUIDS AND STOOLS O RDERABLES Performing Organization Address City/State/ZIP Code Phon e Number [facility]- [address] [place] [address] [place] [address] System [address] Albumin, Body Fluid (03/12/2021 3:46 PM FIELD TRAINING AGENT) P athologist Signature Albumin BF 0.7 See Comment 03/14/2021 DTL g/dL 10:40 AM FIELD TRAINING AGENT Comment: ----ADDITIONAL INFORMATION---- Peritoneal fluid albumin is used to calc ulate the serum-ascites albumin gradient (SAAG). V alues greater than or equal to 1.1 g/dL suggest portal hypertension. Pleural fluid albumin may be used to ada culate a serum-effusion albumin gradient. Values greater than 1.2 g/dL are most consistent with a noriega sudative process. ?? All other fluids refer to [email or web address] for further interpretive information. This t est has been modified from the centrifuge separator tender's instruc tions. Its performance characteristics were determi foreign by [facility] in a manner consistent with CLIA require ments. This test has not been cleared or approved by the U.S. Food and Drug Administration. Fluid Type, Albumin PERITONEAL 03/14/2021 10:06 AM FIELD TRAINING AGENT DTL Specimen Anatomical Collection Method Collection Time Receive d Time (Source) Location / / Volume Laterality Fluid 03/12/2021 3:46 PM 9:49 (Peritoneal FIELD TRAINING AGENT AM FIELD TRAINING AGENT Fluid) Sera Morgan P.A.-C. LAB BODY FLUIDS AND STOOLS O RDERABLES Performing Organization Address City/[facility]/ZIP [place] Phon e Number [facility] - [address] [place], [place] [address] [facility] [place] [address] Laboratories-[facility] [address] [id number] (03/12/2021 2:57 PM FIELD TRAINING AGENT) athologist Signature [id number] 170 100 - 190 03/14/2021 [facility] psin, S mg/dL 10:09 AM FIELD TRAINING AGENT Specimen Anatomical Collection Method Collection Time Receive d Time (Source) Location / / Volume Laterality Blood (Blood, 03/12/2021 2:57 PM 03/14/20 7:05 Venous) FIELD TRAINING AGENT AM FIELD TRAINING AGENT Sera Morgan P.A.-C. LAB BLOOD ADD-ON Performing Organization Address City/[facility] Phon e Number [facility] [address] [place], [place] [address] [facility] [place] [address] Laboratory Medicine and Pathology [address] [place] (ABNORMAL) Ceruloplasmin (03/12/2021 2:57 PM FIELD TRAINING AGENT) athologist Signature Ceruloplasmin, 16.5 (L) 20.0 - 03/13/2021 DTL S 51.0 mg/dL 10:48 AM FIELD TRAINING AGENT Comment: A low concentration of ceruloplasmin in [...] at or the on-line test catalog at [employer] for m ore information. Specimen Anatomical Collection Method Collection Time Receive d Time (Source) Location / / Volume Laterality Blood 03/12/2021 2:57 PM 1 8:43 FIELD TRAINING AGENT AM FIELD TRAINING AGENT Barrera Vargas M.D. LAB BLOOD ADD-ON Performing Organization Address City/[facility]/ZIP Code Phon e Number [facility] - [address] [place], [place] [address] [place] [address] Laboratories-[facility] 200 [facility] Autoimmune Liver Disease Panel (03/12/2021 2:57 PM FIELD TRAINING AGENT) Analysis Performed At Patho logist Time Signature Mitochondrial Ab, <0.1 <0.1 03/13/2021 [facility] M2, S (Negative) 2:19 PM FIELD TRAINING AGENT U Antinuclear Ab, S 0.2 <=1.0 03/13/2021 [facility] (Negative) 12:55 PM FIELD TRAINING AGENT U Comment: ----ADDITIONAL INFORMATION---- Method: Enzyme-linked immunoassay using HEp-2 nuclear extract supplemented with purified antig ens. Smooth Muscle Ab Screen, S Negative Negative 03/13/2021 12 :11 PM FIELD TRAINING AGENT [facility] Comment: Negative: No further testing will be per formed ----ADDITIONAL INFORMATION---- This test was developed and its performa nce characteristics determined by [facility] in a manner consistent with CLIA requirements. This test has not been cleared or approved by the U.[place]. Meg[place] d and Drug Administration. Specimen Anatomical Collection Method Collection Time Receive d Time (Source) Location / / Volume Laterality Blood 03/12/2021 2:57 PM 1 7:28 FIELD TRAINING AGENT AM FIELD TRAINING AGENT Barrera Vargas M.D. LAB BLOOD ADD-ON Performing Organization Address City/State/ZIP Code Phon e Number [facility] [address] [place], [place] [address] [facility] [place] [address] Laboratory Medicine and Pathology [address] [place] (ABNORMAL) Glucose, POCT (03/12/2021 2:06 PM FIELD TRAINING AGENT) P athologist Signature Glucose, POCT, 155 (H) 70 - 140 03/12/2021 ANN B mg/dL 2:06 PM FIELD TRAINING AGENT Specimen Anatomical Collection Method Collection Time Receive d Time (Source) Location / / Volume Laterality Blood 03/12/2021 2:06 PM 2:39 FIELD TRAINING AGENT PM FIELD TRAINING AGENT Generic Rals LAB POCT ORDERABLES-MANUAL Performing Organization Address City/State/ZIP Code Phon e Number [facility]- [address] [place] [address] [place] [address] System in [place] [address] [facility] [address] Abdomen Pelvis with IV Contrast (03/12/2021 1:50 PM FIELD TRAINING AGENT) Anatomical Region Laterality Modality Abdomen, Pelvis, Abdominal RST LOS, Abdominal ARZ LOS, N/A Computed Tomography Abdominal FLA LOS Specimen (Source) Anatomical Collection Method Collection Time Re ceived Time Location / / Volume Laterality 03/12/2021 2:04 PM FIELD TRAINING AGENT Impressions 03/12/2021 2:37 PM FIELD TRAINING AGENT 1. ??Partial atelectasis of the bilatera l [...] anterior fifth rib. Narrative 03/12/2021 2:37 PM FIELD TRAINING AGENT EXAM: CT CHEST WITH IV CONTRAST, CT [...] Chest with IV Contrast (03/12/2021 1:50 PM FIELD TRAINING AGENT) Anatomical Region Laterality Modality Chest, Thoracic RST LOS, Thoracic ARZ LOS, Thoracic N/A Computed Tomography ARZ LOS, Thoracic FLA LOS Specimen (Source) Anatomical Collection Method Collection Time Re ceived Time Location / / Volume Laterality 03/12/2021 2:04 PM FIELD TRAINING AGENT Impressions 03/12/2021 2:37 PM FIELD TRAINING AGENT 1. ??Partial atelectasis of the bilatera l [...] anterior fifth rib. Narrative 03/12/2021 2:37 PM FIELD TRAINING AGENT EXAM: CT CHEST WITH IV CONTRAST, CT [...] Head without IV Contrast (03/12/2021 1:49 PM FIELD TRAINING AGENT) Anatomical Region Laterality Modality Head, Neuroradiology RST [facility], Neuroradiology ARZ [facility], N/A Computed Tomography Neuroradiology FLA [facility] Specimen (Source) Anatomical Collection Method Collection Time Re ceived Time Location / / Volume Laterality 03/12/2021 1:50 PM FIELD TRAINING AGENT Impressions 03/12/2021 1:52 PM FIELD TRAINING AGENT No acute CT abnormalities are demonstrated. Narrative 03/12/2021 1:52 PM FIELD TRAINING AGENT EXAM: CT HEAD WITHOUT IV CONTRAST COMPARISON: [...] Barrera Vargas M.D. IMG CT PROCEDURES Cytology Non-FAUCET POLISHER (03/12/2021 1:11 PM FIELD TRAINING AGENT) Component Value Ref Test Analysis Performed At Patholo gist Range Method Time Signature /14/2021 [facility] 12:37 PM FIELD TRAINING AGENT Report Lloyd Alfaro MD 03/14/2021 HK electronically 12:37 PM signed by FIELD TRAINING AGENT I verify that I have examined all relevant slides/materials for the specimen(s) and rendered or confirmed the diagnosis. Gross Description 800 ml cloudy brownish red fluid received. ??60 m l fixed 03/14/2021 [facility] with 70% ETOH 03-12-21 @ 15:30 12:37 PM 2 slides and cell block prepared. FIELD TRAINING AGENT Source A. Pleural, 03/14/2021 [facility] Right, fluid 12:37 PM FIELD TRAINING AGENT Interpretation A. Pleural, Right, fluid (smears/cell block): Negati ve for 03/14/2021 HK malignancy. 12:37 PM FIELD TRAINING AGENT Specimen Anatomical Collection Method Collection Time Receive d Time (Source) Location / / Volume Laterality Varies 03/12/2021 1:11 PM 6:20 FIELD TRAINING AGENT AM FIELD TRAINING AGENT Narrative This result has an attachment that is no t available. Barrera Vargas M.D. LAB SURG PATH ORDERABLES Performing Organization Address City/State/ZIP Code Phon e Number [facility]- [facility] [place] [address] [place] [address] [facility] Cytology [address] [place] [address] ECG 12 Lead (03/12/2021 1:01 PM FIELD TRAINING AGENT) P athologist Signature Ventricular Rate 84 BPM MUSE ECG/Min SC Interval 166 ms MUSE QRSD Interval 92 ms MUSE QT Interval 436 ms MUSE QTC Interval 516 ms MUSE P Winston 62 degrees MUSE R Winston 43 degrees MUSE T Wave Winston -20 degrees MUSE Specimen Anatomical Collection Method Collection Time Receive d Time (Source) Location / / Volume Laterality 03/12/2021 1:01 PM 1:24 FIELD TRAINING AGENT PM FIELD TRAINING AGENT Impressions MUSE - 03/12/2021 1:21 PM FIELD TRAINING AGENT Normal sinus rhythm ST and T wave [...] Chest Portable 1 View (03/12/2021 1:00 PM FIELD TRAINING AGENT) Anatomical Region Laterality Modality Chest, Thoracic RST LOS, Thoracic ARZ LOS, Thoracic N/A Digital Radiography FLA LOS Specimen (Source) Anatomical Collection Method Collection Time Re ceived Time Location / / Volume Laterality 03/12/2021 1:12 PM FIELD TRAINING AGENT Impressions 03/12/2021 1:14 PM FIELD TRAINING AGENT 1. New endotracheal tube with tip positioned [...] acute airspace disease. Narrative 03/12/2021 1:14 PM FIELD TRAINING AGENT EXAM: DX CHEST PORTABLE 1 VIEW COMPARISON: [...] P ROCEDURES Testing Location (03/12/2021 12:59 PM FIELD TRAINING AGENT) athologist Signature Testing [facility] DEFAULT 03/12/2021 MKTO Location 1:05 PM FIELD TRAINING AGENT Specimen Anatomical Collection Method Collection Time Receive d Time (Source) Location / / Volume Laterality Blood 03/12/2021 12:59 03/12/2021 1:05 PM FIELD TRAINING AGENT PM FIELD TRAINING AGENT Barrera Vargas M.D. LAB BLOOD BANK TEST YO ELISE [facility] Organization Address City/State/ZIP Code Phon e Number [facility]- [address] [place] [phone] [place] [address] (ABNORMAL) Bilirubin, Direct (03/12/2021 12:59 PM FIELD TRAINING AGENT) athologist Signature Bilirubin, 2.7 (H) 0.0 - 0.3 03/12/2021 MKTO Direct, P mg/dL 1:40 PM FIELD TRAINING AGENT Specimen Anatomical Collection Method Collection Time Receive d Time (Source) Location / / Volume Laterality Blood (Blood, 03/12/2021 12:59 03/12/2021 1:08 Venous) PM FIELD TRAINING AGENT PM FIELD TRAINING AGENT Sera Morgan P.A.-C. LAB BLOOD ADD-ON Performing Organization Address City/[facility]/ZIP Code Phon e Number [facility]- [address] [place] [phone] [place] [address] Patient Status (03/12/2021 12:59 PM FIELD TRAINING AGENT) P athologist Signature FIO2 0.50 0.21=AIR 03/12/2021 1:09 MKTO PM FIELD TRAINING AGENT Specimen Anatomical Collection Method Collection Time Receive d Time (Source) Location / / Volume Laterality Blood 03/12/2021 12:59 03/12/2021 1:04 PM FIELD TRAINING AGENT PM FIELD TRAINING AGENT Barrera Vargas M.D. LAB BLOOD NON ADD-ON Performing Organization Address City/[facility]/ZIP Code Phon e Number [facility]- [address] [place] [phone] [place] [address] [address] Lactate, B (03/12/2021 12:59 PM FIELD TRAINING AGENT) P athologist Signature Lactate, B 2.2 0.5 - 2.2 03/12/2021 MKTO mmol/L 1:09 PM FIELD TRAINING AGENT Specimen Anatomical Collection Method Collection Time Receive d Time (Source) Location / / Volume Laterality Blood 03/12/2021 12:59 03/12/2021 1:05 PM FIELD TRAINING AGENT PM FIELD TRAINING AGENT Barrera Vargas M.D. LAB BLOOD NON ADD-ON Performing Organization Address City/[facility]/ZIP Code Phon e Number [facility]- [address] [place] [phone] [place] [address] (ABNORMAL) Blood Gas with Coox, Arterial (03/12/2021 12:59 PM FIELD TRAINING AGENT) P athologist Signature P O2 102 83 - 108 03/12/2021 MKTO mm Hg 1:09 PM FIELD TRAINING AGENT P CO2 31 (L) 32 - 45 mm 03/12/2021 MKTO Hg 1:09 PM FIELD TRAINING AGENT pH 7.47 (H) 7.35 - 03/12/2021 MKTO 7.45 pH 1:09 PM FIELD TRAINING AGENT Base Excess -1 -2 - 3 03/12/2021 MKTO mmol/L 1:09 PM FIELD TRAINING AGENT HCO3 23 22 - 26 03/12/2021 [facility] mmol/L 1:09 PM FIELD TRAINING AGENT Hemoglobin, B 6.5 (L) 11.6 - 03/12/2021 [facility] 15.0 g/dL 1:09 PM FIELD TRAINING AGENT O2Hb 96.9 94.0 - 03/12/2021 MKTO 98.0 % 1:09 PM FIELD TRAINING AGENT COHb 1.8 <3.0 % 03/12/2021 MKTO 1:09 PM FIELD TRAINING AGENT MetHb 0.0 <1.5 % 03/12/2021 MKTO 1:09 PM FIELD TRAINING AGENT CtO2 9.1 (L) 18.0 - 03/12/2021 MKTO 21.0 vol % 1:09 PM FIELD TRAINING AGENT Arterial Art Line 03/12/2021 MK[facility] Sample Site 1:09 PM FIELD TRAINING AGENT Comment: Michael's test not done. Specimen Anatomical Collection Method Collection Time Receive d Time (Source) Location / / Volume Laterality Blood (Blood, 03/12/2021 12:59 03/12/2021 1:04 Arterial) PM FIELD TRAINING AGENT PM FIELD TRAINING AGENT Barrera Vargas M.D. LAB BLOOD NON ADD-ON Performing Organization Address City/State/ZIP Code Phon e Number [facility]- [address] [place] [phone] [place] [address] System in [place] [address] [place] [address] Type and Screen (with reflex Antibody ID) (03/12/2021 12:59 PM FIELD TRAINING AGENT) Patholo gist Method Time Signature ABO Group B 03/12/2021 MKTO 1:45 PM FIELD TRAINING AGENT Rh Type POS 03/12/2021 [facility] 1:45 PM FIELD TRAINING AGENT Antibody Screen NEG 03/12/2021 [facility] 1:45 PM FIELD TRAINING AGENT Type & Screen 03/15/2021 03/12/2021 MKTO Expiration 23:59 1:45 PM FIELD TRAINING AGENT ELXM Eligible Y 03/12/2021 MKTO 1:45 PM FIELD TRAINING AGENT Specimen Anatomical Collection Method Collection Time Receive d Time (Source) Location / / Volume Laterality Blood (Blood, 03/12/2021 12:59 03/12/2021 1:05 Venous) PM FIELD TRAINING AGENT PM FIELD TRAINING AGENT Barrera Vargas M.D. LAB BLOOD BANK TEST ORDE [place] Performing Organization Address City/[facility]/ZIP [place] Phon e Number [facility]- [address] [place] [phone] [place] [address] LD (Lactate Dehydrogenase) (03/12/2021 12:59 PM FIELD TRAINING AGENT) Analysis Performed At Patho logist Time Signature Lactate 218 122 - 222 03/12/2021 [facility] Dehydrogenase U/L 1:39 PM FIELD TRAINING AGENT (LD), P Specimen Anatomical Collection Method Collection Time Receive d Time (Source) Location / / Volume Laterality Blood (Blood, 03/12/2021 12:59 03/12/2021 1:26 Venous) PM FIELD TRAINING AGENT PM FIELD TRAINING AGENT Barrera Vargas M.D. LAB BLOOD NON ADD-ON Performing Organization Address [facility] Phon e Number [facility]- [address] [place] [phone] [place] [address] [address] Cytology Non-FAUCET POLISHER (03/12/2021 12:39 PM FIELD TRAINING AGENT) Component Value Ref Test Analysis Performed At Patholo gist Range Method Time Signature 03/14/2021 [facility] 12:36 PM FIELD TRAINING AGENT Report Lloyd Alfaro MD 03/14/2021 [facility] electronically 12:36 PM signed by FIELD TRAINING AGENT I verify that I have examined all relevant slides/materials for the specimen(s) and rendered or confirmed the diagnosis. Gross Description 925 ml of cloudy hinson yellow fluid received. ?? Specimen 03/14/2021 [facility] fixed @ 2:00 pm on 03-12-2021. 12:36 PM 2 slides and cell block prepared. FIELD TRAINING AGENT Collection Paracentesis 03/14/2021 [facility] Procedure 12:36 PM FIELD TRAINING AGENT Source A. Peritoneal, 03/14/2021 [facility] fluid 12:36 PM FIELD TRAINING AGENT Interpretation A. Peritoneal, fluid (smears/cell block): Negative f or 03/14/2021 [facility] malignancy. 12:36 PM FIELD TRAINING AGENT Specimen Anatomical Collection Method Collection Time Receive d Time (Source) Location / / Volume Laterality Varies 03/12/2021 12:39 03/12/2021 2:00 PM FIELD TRAINING AGENT PM FIELD TRAINING AGENT Narrative This result has an attachment that is no t available. Barrera Vargas M.D. LAB SURG PATH ORDERABLES Performing Organization Address City/[facility]/ZIP Code Phon e Number [facility]- [address] [place] [address] [facility] [place] [address] System [place] [facility] [address] [facility] Lactate Dehydrogenase (LD), Body Fluid (03/12/2021 12:35 PM FIELD TRAINING AGENT) [facility] Method Time Signature Lactate 84 See Comment 03/13/2021 DTL Dehydrogenase U/L 11:50 AM FIELD TRAINING AGENT (LD), BF Comment: ----ADDITIONAL INFORMATION---- Pleural fluid [...] clinical findings. All other fluids refer to [email or web address] [email or web address] [email or web address] for further interpretive information. This test has been modified from the equality ufacturer's instructions. Its performance characteristics were det ermined by [facility] in a manner consistent with CLIA requirements . This test has not been cleared or approved by the U.S. Food and Drug Administration. Fluid Type, Lactate Pleural Fluid, Right 1 10:15 AM FIELD TRAINING AGENT DTL Dehydrogenase Specimen Anatomical Collection Method Collection Time Receive d Time (Source) Location / / Volume Laterality Fluid (Pleural 03/12/2021 12:35 1 8:56 Fluid, Right) PM FIELD TRAINING AGENT AM FIELD TRAINING AGENT Barrera Vargas M.D. LAB BODY FLUIDS AND STOO LS ORDERABLES Performing Organization Address City/[facility]/ZIP Code Phon e Number [facility] - [address] [place], [place] [address] [facility] [place] [address] [facility] [address] [facility] Protein, Total, Body Fluid (03/12/2021 12:35 PM FIELD TRAINING AGENT) P athologist Signature Protein, 1.5 See Comment 03/13/2021 DTL Total, BF g/dL 11:50 AM FIELD TRAINING AGENT Comment: ----ADDITIONAL INFORMATION---- A pleural fluid total [...] ical findings. All other fluids refer to [email or web address] for further inter pretive information. This test has been modified from the centrifuge separator tender's instructions. Its perform ance characteristics were determined by [facility] in a manner consistent with CLIA require ments. This test has not been cleared or approv ed by the U.S. Food and Drug Administration. Fluid Type, Protein, Total Pleural Fluid, Right 10:15 AM FIELD TRAINING AGENT DTL Specimen Anatomical Collection Method Collection Time Receive d Time (Source) Location / / Volume Laterality Fluid (Pleural 03/12/2021 12:35 8:56 Fluid, Right) PM FIELD TRAINING AGENT AM FIELD TRAINING AGENT Barrera Vargas M.D. LAB BODY FLUIDS AND STOO LS ORDERABLES Performing Organization Address City/State/ZIP Code Phon e Number [facility] - [address] [place], [place] [address] [facility] [place] [address] [facility] [address] [facility] Glucose, Body Fluid (03/12/2021 12:34 PM FIELD TRAINING AGENT) athologist Signature Glucose, BF 124 See Comment 03/13/2021 DTL mg/dL 11:44 AM FIELD TRAINING AGENT Comment: ----ADDITIONAL INFORMATION---- Body fluid glucose concentrations [...] of infection. All other fluids refer to [email or web address] for further inter pretive information. This test has been modified from the man ufacturer's instructions. Its performance characteri stics were determined by [facility] in a manner co nsistent with CLIA requirements. This test has not been norah ared or approved by the U.S. Food and Drug Administration. Fluid Type, Glucose Pleural Fluid, Right 10:14 AM FIELD TRAINING AGENT DTL Specimen Anatomical Collection Method Collection Time Receive d Time (Source) Location / / Volume Laterality Fluid (Pleural 03/12/2021 12:34 1 8:55 Fluid, Right) PM FIELD TRAINING AGENT AM FIELD TRAINING AGENT Barrera Vargas M.D. LAB BODY FLUIDS AND STOO LS ORDERABLES Performing Organization Address City/State/ZIP Code Phon e Number [facility] - [address] [place], [place] [address] [facility] [place] [address] [facility] 200 [facility] Gram Stain (03/12/2021 12:34 PM FIELD TRAINING AGENT) [facility] Method Time Signature Gram Stain No organisms seen. 03/12/2021 MKTO White blood cells present. 4:46 PM FIELD TRAINING AGENT Stain performed on concentrated cytospin preparation. Specimen Anatomical Collection Method Collection Time Receive d Time (Source) Location / / Volume Laterality Fluid (Pleural 03/12/2021 12:34 1 1:08 Fluid, Right) PM FIELD TRAINING AGENT PM FIELD TRAINING AGENT Comment: Specimen Source Site: Fluid Barrera Vargas M.D. LAB MICROBIOLOGY - GENER AL ORDERABLES Performing Organization Address City/State/ZIP Code Phon e Number [facility]- [address] [place] [address] [place] [address] Cell Count and Differential, Body Fluid (03/12/2021 12:34 PM FIELD TRAINING AGENT) [facility] Method Time Signature Fluid Type Pleural/Thor 03/12/2021 MKTO acentesis 2:12 PM FIELD TRAINING AGENT Gross Slightly 03/12/2021 MKTO Appearance Cloudy 2:13 PM FIELD TRAINING AGENT Total 350 /mcL 03/12/2021 MKTO Nucleated 2:13 PM FIELD TRAINING AGENT Cells Comment: ----REFERENCE VALUE---- Synovial: <150 Peritoneal: <500 Pleural: <500 Pericardial: <500 ----ADDITIONAL INFORMATION---- This test has been modified from the [facility]'s instructions. Its performance characteri stics were determined by [facility] in a manner co nsistent with CLIA requirements. This test has not bee n cleared or approved by the U.S. Food and Drug Admin istration. Neutrophils 4 % 03/12/2021 2:47 PM FIELD TRAINING AGENT MKTO Comment: ----REFERENCE VALUE---- Synovial: <25% Peritoneal: <25% Pleural: <25% Pericardial: <25% Lymphocytes 13 Synovial: <75% % 03/12/2021 2:47 PM CS T MKTO Monocytes/Macrophages 76 Synovial: <70% % 03/12/2021 2:47 PM FIELD TRAINING AGENT MKTO Other Cells 7 % 03/12/2021 2:47 PM FIELD TRAINING AGENT MKTO Comment: ----REFERENCE VALUE---- The reference range and other method per formance specifications have not been established for this body fluid. The test result must be integrate d into the clinical context for interpretation. Other Cells Are: Mesothelial cells 03/12/2021 2:47 PM FIELD TRAINING AGENT MKTO Reviewed by: Dr. Joshua Castrejon 03/12/2021 2:47 PM CS T MKTO Specimen Anatomical Collection Method Collection Time Receive d Time (Source) Location / / Volume Laterality Fluid (Pleural 03/12/2021 12:34 1:08 Fluid, Right) PM FIELD TRAINING AGENT PM FIELD TRAINING AGENT Barrera Vargas M.D. LAB BODY FLUIDS AND STOO LS ORDERABLES Performing Organization Address City/State/ZIP Code Phon e Number [facility]- [address] [place] [phone] [place] [address] Bacterial Culture, Anaerobic + Susc (03/12/2021 12:34 PM FIELD TRAINING AGENT) [facility] Method Time Signature Bacterial No growth 03/19/2021 MKTO Culture, after 7 8:26 AM FIELD TRAINING AGENT Anaerobic days of incubation. Specimen Anatomical Collection Method Collection Time Receive d Time (Source) Location / / Volume Laterality Fluid (Pleural 03/12/2021 12:34 1 1:08 Fluid, Right) PM FIELD TRAINING AGENT PM FIELD TRAINING AGENT Comment: Specimen Source Site: Fluid Barrera Vargas M.D. LAB MICROBIOLOGY - GENER AL ORDERABLES Performing Organization Address City/[facility] Phon e Number [facility]- [address] [place] [address] [place] [address] Bacterial Culture, Aerobic + Susc (03/12/2021 12:34 PM FIELD TRAINING AGENT) [facility] Method Time Signature Bacterial No growth 03/17/2021 MKTO Culture, after 5 7:38 AM FIELD TRAINING AGENT Aerobic + Susc days of incubation. Specimen Anatomical Collection Method Collection Time Receive d Time (Source) Location / / Volume Laterality Fluid (Pleural 03/12/2021 12:34 1 1:08 Fluid, Right) PM FIELD TRAINING AGENT PM FIELD TRAINING AGENT Comment: Specimen Source Site: Fluid Barrera Vargas M.D. LAB MICROBIOLOGY - GENER AL ORDERABLES Performing Organization Address City/[facility] Phon e Number [facility]- [address] [place] [address] [place] [address] Influenza A/B and RSV, PCR, Varies (03/12/2021 11:00 AM FIELD TRAINING AGENT) [facility] Method Time Signature Influenza A/B Swab, 03/13/2021 DTL and RSV, Nasopharynx 11:55 AM Source FIELD TRAINING AGENT Influenza A, Undetected Undetected 03/13/2021 DTL PCR 11:55 AM FIELD TRAINING AGENT Comment: Influenza A RNA absent. Influenza B, PCR Undetected Undetected 03/13/2021 11:[address] DTL Comment: Influenza B RNA absent. Respiratory Syncytial Virus, Undetected Undetected 11:55 AM FIELD TRAINING AGENT DTL PCR Comment: RSV RNA absent. ----ADDITIONAL INFORMATION---- This test has been modified from the man ufsusir's instructions. Its performance characteristics were determi foreign by [facility] in a manner consistent with CLIA requirements. This test has not been cleared or approved by the U.S. Food and Drug Administration . Specimen Anatomical Collection Method Collection Time Receive d Time (Source) Location / / Volume Laterality Varies 03/12/2021 11:00 03/13/2021 7:12 (Nasopharynx) AM FIELD TRAINING AGENT AM FIELD TRAINING AGENT Nunu Sanches P.A.-C. M.S. LAB MICROBIOLOGY - [facility] ORDERABLES Performing Organization Address City/State/ZIP Code Phon e Number [facility] - [address] [place] [address] [facility] [place] [address] [facility] 200 [facility] SARS Coronavirus-2 RNA, V Symptomatic (03/12/2021 11:00 AM FIELD TRAINING AGENT) [facility] Method Time Signature SARS-CoV-2 Swab, 03/12/2021 MKTO Specimen Nasopharynx 7:30 PM FIELD TRAINING AGENT Source SARS CoV-2 Undetected Undetected 03/12/2021 MKTO RNA, TMA 7:30 PM FIELD TRAINING AGENT Comment: SARS-CoV-2 RNA absent. This result does not rule out COVID-19 in the patient, as the sensitivity of the test depends o n the timing of the specimen collection and the quality of the specim en. Result should be correlated with patient's history and clinical presentat ion. ----ADDITIONAL INFORMATION---- This molecular amplification test was pe rformed using the Aptima SARS-CoV-2 assay ([employer] on the Ultr[employer] tem under emergency use authorization (EUA) by the U.S. Food and Drug Administ ration. Fact sheets for this EUA assay can be fo und at the following links: For Healthcare Providers: https://www.fd a.gov/media/136771/download For Patients: https://www.fda.gov/media/ 302542/download Specimen Anatomical Collection Method Collection Time Receive d Time (Source) Location / / Volume Laterality Varies 03/12/2021 11:00 03/12/2021 (Nasopharynx) AM FIELD TRAINING AGENT 11:05 AM FIELD TRAINING AGENT Nunu Sanches P.A.-C. MSumaS. LAB MICROBIOLOGY - GENE RAL ORDERABLES Performing Organization Address City/State/ZIP Code Phon e Number [facility]- [facility] [place] [address] [place] [address] System in [place] [address] [facility] [place] ARTL CATH/CNULA MONITOR PERC, LDA ANE ARTERIAL LINE INSERTION (03/12/2021 10:45 AM FIELD TRAINING AGENT) Narrative Barrera To M.D. - 2020 10:45 AM FIELD TRAINING AGENT Barrera To M.D. ? 03/12/2021 ??6:09 PM [...] SURGICAL ORDERABLES Patient Status (03/12/2021 7:10 AM FIELD TRAINING AGENT) P athologist Signature FIO2 0.50 0.21=AIR 03/12/2021 7:37 MKTO AM FIELD TRAINING AGENT Specimen Anatomical Collection Method Collection Time Receive d Time (Source) Location / / Volume Laterality Blood 03/12/2021 7:10 AM 7:30 FIELD TRAINING AGENT AM FIELD TRAINING AGENT Nunu Sanches P.A.-C., M.S. LAB BLOOD NON ADD-ON Performing Organization Address City/State/ZIP Code Phon e Number [facility]- [address] [place] [address] [place] [address] [address] (ABNORMAL) Blood Gas with Coox, Arterial (03/12/2021 7:10 AM FIELD TRAINING AGENT) P athologist Signature P O2 77 (L) 83 - 108 03/12/2021 MKTO mm Hg 7:37 AM FIELD TRAINING AGENT P CO2 20 (CL) 32 - 45 mm 03/12/2021 MKTO Hg 7:37 AM FIELD TRAINING AGENT pH 7.53 (H) 7.35 - 03/12/2021 MKTO 7.45 pH 7:37 AM FIELD TRAINING AGENT Base Excess -5 (L) -2 - 3 03/12/2021 MKTO mmol/L 7:37 AM FIELD TRAINING AGENT HCO3 17 (L) 22 - 26 03/12/2021 MKTO mmol/L 7:37 AM FIELD TRAINING AGENT Hemoglobin, B 7.6 (L) 11.6 - 03/12/2021 MKTO 15.0 g/dL 7:37 AM FIELD TRAINING AGENT O2Hb 95.2 94.0 - 03/12/2021 MKTO 98.0 % 7:37 AM FIELD TRAINING AGENT COHb 1.6 <3.0 % 03/12/2021 MKTO 7:37 AM FIELD TRAINING AGENT MetHb 0.0 <1.5 % 03/12/2021 MKTO 7:37 AM FIELD TRAINING AGENT CtO2 10.3 (L) 18.0 - 03/12/2021 MKTO 21.0 vol % 7:37 AM FIELD TRAINING AGENT Arterial R-Radial 03/12/2021 MKTO Sample Site 7:37 AM FIELD TRAINING AGENT Specimen Anatomical Collection Method Collection Time Receive d Time (Source) Location / / Volume Laterality Blood (Blood, 03/12/2021 7:10 AM 03/12/20 7:30 Arterial) FIELD TRAINING AGENT AM FIELD TRAINING AGENT Nunu Sanches P.A.-C., M.S. LAB BLOOD NON ADD-ON Performing Organization Address [facility] Phon e Number [address] [place] [address] (ABNORMAL) Lactate, B (03/12/2021 7:10 AM FIELD TRAINING AGENT) P athologist Signature Lactate, B 9.3 (H) 0.5 - 2.2 03/12/2021 MKTO mmol/L 7:38 AM FIELD TRAINING AGENT Specimen Anatomical Collection Method Collection Time Receive d Time (Source) Location / / Volume Laterality Blood 03/12/2021 7:10 AM 7:30 FIELD TRAINING AGENT AM FIELD TRAINING AGENT Nunu Sanches P.A.-C., M.S. LAB BLOOD NON ADD-ON Performing Organization Address [facility] Phon e Number [address] [address] [place] [address] Bacteria / Raudel Culture, Blood #2 (03/12/2021 7:10 AM FIELD TRAINING AGENT) Patholo gist Method Time Signature Bacteria/Adriana No growth 03/17/2021 MKTO da Culture, after 5 8:05 AM FIELD TRAINING AGENT Blood day/s of incubation. Specimen (Source) Anatomical Collection Method Collection Time Re ceived Time Location / / Volume Laterality Blood (Blood, 03/12/2021 7:10 03/12/2021 7:31 Peripheral Draw) AM FIELD TRAINING AGENT AM FIELD TRAINING AGENT Comment: Specimen Source Site: Blood Nunu Sanches P.A.-C., M.S. LAB MICROBIOLOGY - GENE RAL ORDERABLES Performing Organization Address City/State/ZIP Code Phon e Number [facility]- [facility] [place] [address] [place] [address] System in [place] [address] [facility] DX Chest Portable 1 View (03/12/2021 6:24 AM FIELD TRAINING AGENT) Anatomical Region Laterality Modality Chest, Thoracic RST LOS, Thoracic ARZ LOS, Thoracic N/A Digital Radiography FLA LOS Specimen (Source) Anatomical Collection Method Collection Time Re ceived Time Location / / Volume Laterality 03/12/2021 7:25 AM FIELD TRAINING AGENT Impressions 03/12/2021 7:27 AM FIELD TRAINING AGENT Large right pleural effusion and right-sided consolidation. Centrally obstructing process within bro nchus is not excluded. Narrative 03/12/2021 7:27 AM FIELD TRAINING AGENT EXAM: DX CHEST PORTABLE 1 VIEW COMPARISON: [...] PROCEDURES (ABNORMAL) Microscopic Automated (03/12/2021 6:23 AM FIELD TRAINING AGENT) athologist Signature White Blood Occ-3 /hpf 03/12/2021 MKTO Cells 7:18 AM FIELD TRAINING AGENT Comment: ----REFERENCE VALUE---- Males: 0-3 Females: 0-10 Unknown: 0-10 Red Blood Cells 3-10 (A) 0 - 2 /hpf 03/12/2021 7:18 AM FIELD TRAINING AGENT MKTO Dysmorphic Red Blood Cells <=25 <=25 % 03/12/2021 7: 18 AM FIELD TRAINING AGENT MKTO Hyaline Casts 4-10 /lpf 03/12/2021 7:18 AM FIELD TRAINING AGENT MKT O Squamous Cells Occ-3 /hpf 03/12/2021 7:18 AM FIELD TRAINING AGENT MK TO Specimen Anatomical Collection Method Collection Time Receive d Time (Source) Location / / Volume Laterality Urine 03/12/2021 6:23 AM 6:47 FIELD TRAINING AGENT AM FIELD TRAINING AGENT Nunu Sanches P.A.-C., M.S. LAB URINE ORDERABLES Performing Organization Address [facility] Phon e Number [address] [address] [place] [address] MRSA PCR, Nasal (03/12/2021 6:23 AM FIELD TRAINING AGENT) athologist [facility] MRSA Screen, Negative Negative 03/12/2021 MKTO Nasal by PCR 10:50 AM FIELD TRAINING AGENT Specimen Anatomical Collection Method Collection Time Receive d Time (Source) Location / / Volume Laterality Swab (Nares) 03/12/2021 6:23 AM 6:47 FIELD TRAINING AGENT AM FIELD TRAINING AGENT Nunu Sanches P.A.-C., M.S. LAB MICROBIOLOGY - GENE RAL ORDERABLES Performing Organization Address [facility] Phon e Number [address] [address] [place] [address] (ABNORMAL) Urinalysis with Microscopic if Indicated (03/12/2021 6:23 AM FIELD TRAINING AGENT) athologist Signature Source Urine, 03/12/2021 MKTO Urine, 6:56 AM FIELD TRAINING AGENT Clean Catch Clarity Clear Clear 03/12/2021 MKTO 6:56 AM FIELD TRAINING AGENT Color Priscilla 03/12/2021 MKTO 6:56 AM FIELD TRAINING AGENT Comment: ----REFERENCE VALUE---- Colorless Yellow Priscilla Blood Negative Negative 03/12/2021 6:56 AM FIELD TRAINING AGENT MKTO Nitrite Negative Negative 03/12/2021 6:56 AM FIELD TRAINING AGENT MKTO Leukocyte Esterase Small (A) Negative 03/12/2021 6:56 AM CS T MKTO Protein Trace mg/dL 03/12/2021 6:56 AM FIELD TRAINING AGENT MKTO Comment: ----REFERENCE VALUE---- Negative Trace Glucose Negative Negative mg/dL 03/12/2021 6:56 AM FIELD TRAINING AGENT MK TO Ketone Trace (A) Negative mg/dL 03/12/2021 6:56 AM FIELD TRAINING AGENT MK TO Bilirubin Moderate (A) Negative 03/12/2021 6:56 AM FIELD TRAINING AGENT MKTO pH 6.0 5.0 - 8.0 03/12/2021 6:56 AM FIELD TRAINING AGENT MKTO Specific [place] 1.016 1.001 - 1.035 03/12/2021 6:56 AM FIELD TRAINING AGENT MKTO Urobilinogen 1.0 0.2 - 1.0 mg/dL 03/12/2021 6:56 AM CS T MKTO Specimen Anatomical Collection Method Collection Time Receive d Time (Source) Location / / Volume Laterality Urine (Urine, 03/12/2021 6:23 AM 03/12/20 6:47 Clean Catch) FIELD TRAINING AGENT AM FIELD TRAINING AGENT Nunu Sanches P.A.-C., M.S. LAB URINE ORDERABLES Performing Organization Address City/State/ZIP Code Phon e Number [facility]- [address] [place] [id number] [place] [address] [place] [address] (ABNORMAL) Drug Screen Urine (03/12/2021 6:23 AM FIELD TRAINING AGENT) athologist Signature Amphetamines, Negative Negative 03/12/2021 MKTO U 7:18 AM FIELD TRAINING AGENT Comment: ----ADDITIONAL INFORMATION---- Fish Hatchery Laborer's Cutoff: 500 ng/mL Barbiturates, U Negative Negative 03/12/2021 7:18 AM FIELD TRAINING AGENT Elizabeth KTO Comment: ----ADDITIONAL INFORMATION---- [employer] Hatchery Laborer's Cutoff: 200 ng/mL Benzodiazepines, U Negative Negative 03/12/2021 7:18 AM CS T MKTO Comment: ----ADDITIONAL INFORMATION---- [employer] Hat[employer] Laborer's Cutoff: 150 ng/mL Buprenorphine, U Negative Negative 03/12/2021 7:18 AM FIELD TRAINING AGENT MKTO Comment: ----ADDITIONAL INFORMATION---- [employer] Hat[employer] Laborer's Cutoff: 10 ng/mL Cocaine, U Negative Negative 03/12/2021 7:18 AM FIELD TRAINING AGENT MKTO Comment: ----ADDITIONAL INFORMATION---- [employer] Hat[employer] Laborer's Cutoff: 150 ng/mL Methadone, U Negative Negative 03/12/2021 7:18 AM FIELD TRAINING AGENT MKTO Comment: ----ADDITIONAL INFORMATION---- Fish Hatcher[employer] Laborer's Cutoff: 200 ng/mL Methamphetamines, U Negative Negative 03/12/2021 7:[address] MKTO Comment: ----ADDITIONAL INFORMATION---- Fish Hat[employer] Laborer's Cutoff: 500 ng/mL Opiates, U Negative Negative 03/12/2021 7:18 AM FIELD TRAINING AGENT MKTO Comment: ----ADDITIONAL INFORMATION---- Fish Hat[employer] Laborer's Cutoff: 100 ng/mL Oxycodone, U Unconfirmed Positive (A) Negative 03/12/2021 7 :18 AM FIELD TRAINING AGENT MKTO Comment: ----ADDITIONAL INFORMATION---- Fish Hat[employer] Laborer's Cutoff: 100 ng/mL Phencyclidine, U Negative Negative 03/12/2021 7:18 AM FIELD TRAINING AGENT MKTO Comment: ----ADDITIONAL INFORMATION---- [employer] Hat[employer] Laborer's Cutoff: 25 ng/mL Propoxyphene, U Negative Negative 03/12/2021 7:18 AM FIELD TRAINING AGENT Elizabeth AGUILAR Comment: ----ADDITIONAL INFORMATION---- [employer] Hat[employer] Laborer's Cutoff: 300 ng/mL Tetrahydrocannabinol, U Unconfirmed Positive Negative 03/12 7:18 AM MKTO (A) FIELD TRAINING AGENT Comment: ----ADDITIONAL INFORMATION---- [employer] Hat[employer] Laborer's Cutoff: 50 ng/mL Tricyclic Antidepressants, U Negative Negative 03/12/2021 7:18 AM FIELD TRAINING AGENT MKTO Comment: ----ADDITIONAL INFORMATION---- [employer] Hat[employer] Laborer's Cutoff: 300 ng/mL THE ABOVE DRUG SCREEN PANEL IS FOR MED ICA PURPOSES ONLY Specimen Anatomical Collection Method Collection Time Receive d Time (Source) Location / / Volume Laterality Urine (Urine, 03/12/2021 6:23 AM 03/12/20 6:47 Clean Catch) FIELD TRAINING AGENT AM FIELD TRAINING AGENT Nunu Sanches P.A.-C. M.S. LAB URINE ORDERABLES Performing Organization Address City/[facility]/ZIP Code Phon e Number [facility]- [address] [place] [address] [place] [address] HCV Ab w/Reflex to HCV PCR, Serum (03/12/2021 5:58 AM FIELD TRAINING AGENT) athologist [facility] HCV Ab, S Negative Negative 03/13/2021 [facility] 9:25 AM FIELD TRAINING AGENT Comment: Pfkmeo-mc-basrcj ratio is <1.00 . Specimen (Source) Anatomical Collection Method Collection Time Re ceived Time Location / / Volume Laterality Blood (Blood, 03/12/2021 5:58 03/13/2021 7:17 Peripheral Draw) AM FIELD TRAINING AGENT AM FIELD TRAINING AGENT Ivan Lazo D.O. LAB MICROBIOLOGY - BLOOD ORD ERABLES Performing Organization Address City/[facility]/ZIP Code Phon e Number [facility] [address] [place] [address] [facility] [place] [facility] [place] [address] Laboratory Medicine and Pathology [address] [place] [address] Dr. CHAPPELL Hepatitis A IgM Ab, Serum (03/12/2021 5:58 AM FIELD TRAINING AGENT) athologist [facility] Hepatitis A Negative Negative 03/13/2021 [facility] IgM Ab, S 9:50 AM FIELD TRAINING AGENT Comment: Result does not exclude the possibility of exposure to hepatitis A virus. ??Antibody level duri ng early infection stage may be below the limit of detectio n of the assay. Specimen (Source) Anatomical Collection Method Collection Time Re ceived Time Location / / Volume Laterality Blood (Blood, 03/12/2021 5:58 03/13/2021 7:18 Peripheral Draw) AM FIELD TRAINING AGENT AM FIELD TRAINING AGENT Ivan WilcoxOSuma LAB MICROBIOLOGY - BLOOD ORD ERABLES Performing Organization Address City/[facility]/ZIP Code Phon e Number [facility] [address] TA Garber [facility] 05 [facility] [place] [facility] [place] [address] Laboratory Medicine and Pathology [address] CHAPPELL Hepatitis B Core IgM Ab (03/12/2021 5:58 AM FIELD TRAINING AGENT) P athologist Signature HBc IgM Ab, S Negative Negative 03/13/2021 [facility] 9:12 AM FIELD TRAINING AGENT Specimen (Source) Anatomical Collection Method Collection Time Re ceived Time Location / / Volume Laterality Blood (Blood, 03/12/2021 5:58 03/13/2021 7:17 Peripheral Draw) AM FIELD TRAINING AGENT AM FIELD TRAINING AGENT Ivan Lazo D.O. LAB MICROBIOLOGY - BLOOD ORD ERABLES Performing Organization Address City/State/ZIP Code Phon e Number [facility] [address] [place], [place] [address] [facility] [place] [facility] [place] [address] Laboratory Medicine and Pathology [address] [place] [address] Dr. CHAPPELL Hepatitis B Surface Antigen (03/12/2021 5:58 AM FIELD TRAINING AGENT) Patholo gist Method Time Signature HBs Antigen, Nonreactive Nonreactive 03/12/2021 MKTO S 7:43 AM FIELD TRAINING AGENT Comment: Biotin has been identified by the [...] 03/12/2021 5:58 03/12/2021 6:10 Peripheral Draw) AM FIELD TRAINING AGENT AM FIELD TRAINING AGENT Ivan Lazo D.O. LAB MICROBIOLOGY - BLOOD ORD ERABLES Performing Organization Address City/State/ZIP Code Phon e Number [facility]- [address] [place] [phone] [place] [address] System [address] (ABNORMAL) Ammonia (03/12/2021 5:58 AM FIELD TRAINING AGENT) athologist Signature Ammonia, P 127 (H) <=51 03/12/2021 MKTO mcmol/L 6:33 AM FIELD TRAINING AGENT Specimen Anatomical Collection Method Collection Time Receive d Time (Source) Location / / Volume Laterality Blood (Blood, 03/12/2021 5:58 AM 03/12/20 6:09 Venous) FIELD TRAINING AGENT AM FIELD TRAINING AGENT Ivan Lazo D.O. LAB BLOOD NON ADD-ON Performing Organization Address City/[facility] Phon e Number [facility]- [address] [place] [phone] [place] [address] [address] [place] [address] (ABNORMAL) Calcium, Ionized (03/12/2021 5:57 AM FIELD TRAINING AGENT) P athologist Signature Calcium, 3.74 (L) 4.65 - 03/12/2021 MKTO Ionized, B 5.30 mg/dL 6:21 AM FIELD TRAINING AGENT Specimen Anatomical Collection Method Collection Time Receive d Time (Source) Location / / Volume Laterality Blood 03/12/2021 5:57 AM 6:10 FIELD TRAINING AGENT AM FIELD TRAINING AGENT Nunu Sanches P.A.-C., M.S. LAB BLOOD NON ADD-ON Performing Organization Address City/[facility] Phon e Number [facility]- [address] [place] [phone] [facility] [place] [address] System in [address] (ABNORMAL) pH (03/12/2021 5:57 AM FIELD TRAINING AGENT) P athologist Signature pH 7.63 (H) 7.35 - 7.45 03/12/2021 MKTO pH 6:21 AM FIELD TRAINING AGENT Specimen Anatomical Collection Method Collection Time Receive d Time (Source) Location / / Volume Laterality Blood 03/12/2021 5:57 AM 6:10 FIELD TRAINING AGENT AM FIELD TRAINING AGENT Nunu Sanches P.A.-C., M.S. LAB HISTORICAL ORDERS Performing Organization Address City/[facility]/ZIP [place] Phon e Number [facility]- [address] [place] [phone] [place] [address] System in [address] (ABNORMAL) Lactate, B (03/12/2021 5:57 AM FIELD TRAINING AGENT) athologist Signature Lactate, B 5.6 (H) 0.5 - 2.2 03/12/2021 MKTO mmol/L 6:21 AM FIELD TRAINING AGENT Specimen Anatomical Collection Method Collection Time Receive d Time (Source) Location / / Volume Laterality Blood 03/12/2021 5:57 AM 6:10 FIELD TRAINING AGENT AM FIELD TRAINING AGENT Nunu Sanches P.A.-C., M.S. LAB BLOOD NON ADD-ON Performing Organization Address City/[facility] Phon e Number [address] [phone] [place] [address] [address] [place] [address] S-TSH (Thyroid-Stimulating Hormone - Sensitive) (03/12/2021 5:57 AM FIELD TRAINING AGENT) athologist Signature TSH, Sensitive 1.1 0.3 - 4.2 03/12/2021 MKTO mIU/L 7:44 AM FIELD TRAINING AGENT Specimen Anatomical Collection Method Collection Time Receive d Time (Source) Location / / Volume Laterality Blood (Blood, 03/12/2021 5:57 AM 03/12/20 6:10 Venous) FIELD TRAINING AGENT AM FIELD TRAINING AGENT Nunu Sanches P.A.-C., M.S. LAB BLOOD ADD-ON Performing Organization Address City/[facility] Phon e Number [address] [phone] [place] [address] System in [address] Salicylate Level (03/12/2021 5:57 AM FIELD TRAINING AGENT) athologist Signature Salicylate, P <0.3 <30.0 mg/dL 03/12/2021 MKTO 6:50 AM FIELD TRAINING AGENT Specimen Anatomical Collection Method Collection Time Receive d Time (Source) Location / / Volume Laterality Blood (Blood, 03/12/2021 5:57 AM 03/12/20 6:10 Venous) FIELD TRAINING AGENT AM FIELD TRAINING AGENT Nunu Sanches P.A.-C., M.S. LAB BLOOD ADD-ON Performing Organization Address City/[facility]/ZIP Code Phon e Number [facility]- [address] [place] [phone] [place] [address] Acetaminophen Level (03/12/2021 5:57 AM FIELD TRAINING AGENT) Patholo gist Method Time Signature Acetaminophen, <7 Therapeutic 03/12/2021 MKTO P Range: 10-30 6:50 AM FIELD TRAINING AGENT mcg/mL Specimen Anatomical Collection Method Collection Time Receive d Time (Source) Location / / Volume Laterality Blood (Blood, 03/12/2021 5:57 AM 03/12/20 6:10 Venous) FIELD TRAINING AGENT AM FIELD TRAINING AGENT Nunu Sanches P.A.-C., M.S. LAB BLOOD ADD-ON Performing Organization Address [facility] Phon e Number [address] [phone] [place] [address] hCG (Human Chorionic Gonadotropin), Quantitative, (03/12/2021 5:57 AM FIELD TRAINING AGENT) P athologist Signature HCG, <0.5 <5 IU/L 03/12/2021 MKTO Quantitative, 6:55 AM FIELD TRAINING AGENT , P Comment: Biotin has been identified [...] 03/12/2021 5:57 AM 03/12/20 21 6:10 Venous) FIELD TRAINING AGENT AM FIELD TRAINING AGENT Nunu Sanches P.A.-C., M.S. LAB BLOOD ADD-ON Performing Organization Address [facility] Phon e Number [address] [phone] [place] [address] Ethanol Level, Serum (03/12/2021 5:57 AM FIELD TRAINING AGENT) athologist Signature Ethanol, P <10 <10 mg/dL 03/12/2021 6:50 MKTO AM FIELD TRAINING AGENT Specimen Anatomical Collection Method Collection Time Receive d Time (Source) Location / / Volume Laterality Blood (Blood, 03/12/2021 5:57 AM 03/12/20 6:10 Venous) FIELD TRAINING AGENT AM FIELD TRAINING AGENT Nunu Sanches P.A.-C., M.S. LAB BLOOD NON ADD-ON Performing Organization Address City/[facility]/ZIP Code Phon e Number [facility]- [address] [place] [phone] [place] [address] System in [place] [address] [facility] (ABNORMAL) NT-Pro B-Type Natriuretic Peptide (BNP) (03/12/2021 5:57 AM FIELD TRAINING AGENT) athologist Signature NT-Pro BNP 1032 (H) <=140 pg/mL 03/12/2021 MKTO 7:44 AM FIELD TRAINING AGENT Comment: NT-proBNP values less than 300 pg/mL [...] 03/12/2021 5:57 AM 03/12/20 21 6:10 Venous) FIELD TRAINING AGENT AM FIELD TRAINING AGENT Nunu Sanches P.A.-C., M.S. LAB BLOOD ADD-ON Performing Organization Address City/State/ZIP Code Phon e Number [facility]- [address] [place] [phone] [place] [address] System in [address] Lipase (03/12/2021 5:57 AM FIELD TRAINING AGENT) P athologist Signature Lipase, P 18 13 - 60 U/L 03/12/2021 6:50 MKTO AM FIELD TRAINING AGENT Specimen Anatomical Collection Method Collection Time Receive d Time (Source) Location / / Volume Laterality Blood (Blood, 03/12/2021 5:57 AM 03/12/20 6:10 Venous) FIELD TRAINING AGENT AM FIELD TRAINING AGENT Nunu Sanches P.A.-C., M.S. LAB BLOOD ADD-ON Performing Organization Address City/[facility]/ZIP Code Phon e Number [facility]- [address] [place] [phone] [place] [address] System [address] (ABNORMAL) Prothrombin Time (PT) (03/12/2021 5:57 AM FIELD TRAINING AGENT) Patholo gist Method Time Signature Prothrombin 25.3 (H) 9.4 - 12.5 03/12/2021 MKTO Time, P sec 6:26 AM FIELD TRAINING AGENT INR 2.2 0.9 - 1.1 03/12/2021 MKTO 6:26 AM FIELD TRAINING AGENT Comment: ----ADDITIONAL INFORMATION---- Standard intensity warfarin therapeutic range: 2.0 to 3.0 ?? High intensity warfarin therapeutic rang e: 2.5 to 3.5 Specimen Anatomical Collection Method Collection Time Receive d Time (Source) Location / / Volume Laterality Blood (Blood, 03/12/2021 5:57 AM 03/12/20 21 6:10 Venous) FIELD TRAINING AGENT AM FIELD TRAINING AGENT Nunu Sanches P.A.-C., M.S. LAB BLOOD ADD-ON Performing Organization Address City/State/ZIP Code Phon e Number [facility]- [address] [place] [phone] [place] [address] System in [address] (ABNORMAL) Phosphorus Inorganic (03/12/2021 5:57 AM FIELD TRAINING AGENT) athologist Signature Phosphorus 1.9 (L) 2.5 - 4.5 03/12/2021 MKTO (Inorganic), P mg/dL 6:58 AM FIELD TRAINING AGENT Specimen Anatomical Collection Method Collection Time Receive d Time (Source) Location / / Volume Laterality Blood (Blood, 03/12/2021 5:57 AM 03/12/20 6:10 Venous) FIELD TRAINING AGENT AM FIELD TRAINING AGENT Nunu Sanches P.A.-C., M.S. LAB BLOOD ADD-ON Performing Organization Address [facility] Phon e Number [address] [phone] [place] [address] (ABNORMAL) Magnesium (03/12/2021 5:57 AM FIELD TRAINING AGENT) athologist Signature Magnesium, P 1.1 (L) 1.7 - 2.3 03/12/2021 MKTO mg/dL 6:58 AM FIELD TRAINING AGENT Specimen Anatomical Collection Method Collection Time Receive d Time (Source) Location / / Volume Laterality Blood (Blood, 03/12/2021 5:57 AM 03/12/20 6:10 Venous) FIELD TRAINING AGENT AM FIELD TRAINING AGENT Nunu Sanches P.A.-C., M.S. LAB BLOOD ADD-ON Performing Organization Address [facility] Phon e Number [address] [phone] [place] [address] (ABNORMAL) Comprehensive Metabolic Panel (03/12/2021 5:57 AM FIELD TRAINING AGENT) athologist Signature Potassium, P 3.0 (L) 3.6 - 5.2 03/12/2021 MKTO mmol/L 6:50 AM FIELD TRAINING AGENT Sodium, P 132 (L) 135 - 145 03/12/2021 MKTO mmol/L 6:50 AM FIELD TRAINING AGENT Chloride, P 94 (L) 98 - 107 03/12/2021 MKTO mmol/L 6:50 AM FIELD TRAINING AGENT Bicarbonate, P 17 (L) 22 - 29 03/12/2021 MKTO mmol/L 6:50 AM FIELD TRAINING AGENT Anion Gap, P 21 (H) 7 - 15 03/12/2021 MKTO 6:50 AM FIELD TRAINING AGENT BUN (Blood Urea 8 6 - 21 03/12/2021 MKTO Nitrogen), P mg/dL 6:50 AM FIELD TRAINING AGENT Creatinine 0.64 0.59 - 03/12/2021 MKTO 1.04 mg/dL 6:50 AM FIELD TRAINING AGENT eGFR-Black/Afri >90 >=60 03/12/2021 MKTO can Belgian mL/min/BSA 6:50 AM FIELD TRAINING AGENT Comment: ----ADDITIONAL INFORMATION---- Estimated GFR calculated using the 2009 CKD_EPI creatinine equation. eGFR Non-Black/ >90 >=60 mL/min/BSA 03/12/2021 6:50 AM FIELD TRAINING AGENT MKTO Comment: ----ADDITIONAL INFORMATION---- Estimated GFR calculated using the 2009 CKD_EPI creatinine equation. Calcium, Total, P 8.0 (L) 8.6 - 10.0 mg/dL 03/12/2021 6:50 AM FIELD TRAINING AGENT MKTO Glucose, P 118 70 - 140 mg/dL 03/12/2021 6:50 AM FIELD TRAINING AGENT M KTO Protein, Total, P 5.6 (L) 6.3 - 7.9 g/dL 03/12/2021 6:50 A M FIELD TRAINING AGENT MKTO Albumin, P 2.9 (L) 3.5 - 5.0 g/dL 03/12/2021 6:50 AM FIELD TRAINING AGENT M KTO Aspartate Aminotransferase 45 (H) 8 - 43 U/L 03/12/2021 6 :50 AM FIELD TRAINING AGENT MKTO (AST), P Alkaline Phosphatase, P 126 (H) 35 - 104 U/L 03/12/2021 6: 50 AM FIELD TRAINING AGENT MKTO Alanine Aminotransferase 13 7 - 45 U/L 03/12/2021 6:5 0 AM FIELD TRAINING AGENT MKTO (ALT), P Bilirubin, Total, P 6.6 (H) <=1.2 mg/dL 03/12/2021 6:50 AM FIELD TRAINING AGENT MKTO Specimen Anatomical Collection Method Collection Time Receive d Time (Source) Location / / Volume Laterality Blood (Blood, 03/12/2021 5:57 AM 03/12/20 6:10 Venous) FIELD TRAINING AGENT AM FIELD TRAINING AGENT Nunu M Muigai P.A.-C., M.S. LAB BLOOD ADD-ON Performing Organization Address [facility] Phon e Number [facility]- [address] [place] [phone] [place] [address] System in [address] (ABNORMAL) CBC without Differential (03/12/2021 5:57 AM FIELD TRAINING AGENT) [facility] Method Time Signature Hemoglobin 7.7 (L) 11.6 - 03/12/2021 MKTO 15.0 g/dL 6:26 AM FIELD TRAINING AGENT Hematocrit 22.6 (L) 35.5 - 03/12/2021 MKTO 44.9 % 6:26 AM FIELD TRAINING AGENT Erythrocytes 2.12 (L) 3.92 - 03/12/2021 MKTO 5.13 6:26 AM FIELD TRAINING AGENT x10(12)/L MCV 106.6 (H) 78.2 - 03/12/2021 MKTO 97.9 fL 6:26 AM FIELD TRAINING AGENT RBC Distrib Width 15.7 12.2 - 03/12/2021 MKTO 16.1 % 6:26 AM FIELD TRAINING AGENT Platelet Count 144 (L) 157 - 371 03/12/2021 MKTO x10(9)/L 6:26 AM FIELD TRAINING AGENT Leukocytes 12.7 (H) 3.4 - 9.6 03/12/2021 MKTO x10(9)/L 6:26 AM FIELD TRAINING AGENT Specimen Anatomical Collection Method Collection Time Receive d Time (Source) Location / / Volume Laterality Blood (Blood, 03/12/2021 5:57 AM 03/12/20 21 6:10 Venous) FIELD TRAINING AGENT AM FIELD TRAINING AGENT Nunu Sanches P.A.-C., M.S. LAB BLOOD ADD-ON Performing Organization Address City/[facility] Phon e Number [facility]- [address] [place] [phone] [place] [address] [facility] in [address] Bacteria / Raudel Culture, Blood #1 (03/12/2021 5:57 AM FIELD TRAINING AGENT) [facility] Method Time Signature Bacteria/Adriana No growth 03/17/2021 MKTO da Culture, after 5 7:05 AM FIELD TRAINING AGENT Blood day/s of incubation. Specimen (Source) Anatomical Collection Method Collection Time Re ceived Time Location / / Volume Laterality Blood (Blood, 03/12/2021 5:57 03/12/2021 6:10 Peripheral Draw) AM FIELD TRAINING AGENT AM FIELD TRAINING AGENT Comment: Specimen Source Site: Blood Nunu Sanches P.A.-C. M.S. LAB MICROBIOLOGY - GENE RAL ORDERABLES Performing Organization Address [facility] Phon e Number [address] [phone] [place] [address] Glucose, POCT (03/12/2021 5:48 AM FIELD TRAINING AGENT) athologist Signature Glucose, POCT, 120 70 - 140 03/12/2021 [facility] B mg/dL 5:48 AM FIELD TRAINING AGENT Specimen Anatomical Collection Method Collection Time Receive d Time (Source) Location / / Volume Laterality Blood 03/12/2021 5:48 AM 7:25 FIELD TRAINING AGENT AM FIELD TRAINING AGENT Generic Rals LAB POCT ORDERABLES-MANUAL Performing Organization Address [facility] Phon e Number [address] [phone] [place] [address] documented in this encounter Visit [...] tablet 650 mg Given 03/19/2021 5:57 PM FIELD TRAINING AGENT 650 mg (TYLENOL) 650 mg, oral, Once, On Wed03/19/21 at 1800, For 1 dose albumin human 25 % injection 25 g New Bag 03/19/2021 6:39 AM FIELD TRAINING AGENT 25 g 25 g, intravenous, Every 6 hours scheduled, First dose on Wed03/12/21 at 1400, If no infusion rate specified: Administer the 25% solution at 100 mL/hr New Bag 03/19/2021 12:15 AM FIELD TRAINING AGENT 25 g New Bag 03/18/2021 6:32 PM FIELD TRAINING AGENT 25 g albumin human 5 % injection 12.5 g New Bag 03/12/2021 8:49 AM FIELD TRAINING AGENT 12.5 g 12.5 g, intravenous, Every 1 hour, First dose on Wed03/12/21 at 0815, For 2 doses, If no infusion rate specified: Administer the 5% solution at 999 mL/hr or less if ICU/shock, otherwise infuse at 250 mL/hr. New Bag 03/12/2021 8:48 AM FIELD TRAINING AGENT 12.5 g albumin human 5 % injection 25 g New Bag 03/13/2021 7:30 PM FIELD TRAINING AGENT 25 g 250 mL/hr 25 g, intravenous, Once, On Luz Marina 03/13/21 at 1900, For 1 dose, If no infusion rate specified: Administer the 5% solution at 999 mL/hr or less if ICU/shock, otherwise infuse at 250 mL/hr. calcium chloride in NaCl 0.9% IVPB 1 g New Bag 03/12/2021 2:06 PM FIELD TRAINING AGENT 1 g 240 mL/hr 1 g, intravenous, at 240 mL/hr, Administer over 15 Minutes, Once, On Wed03/12/21 at 1245, For 1 dose, Infuse each gram over at least 15 minutes. calcium gluc in NaCl, iso-osm IVPB 2 g New Bag 03/16/2021 5:53 AM FIELD TRAINING AGENT 2 g 400 mL/hr 2 g, intravenous, at 400 mL/hr, Administer over 15 Minutes, Once, On Wed03/16/21 at 0530, For 1 dose calcium gluconate in NaCl (iso-osm) New Bag 03/12/2021 8:03 AM FIELD TRAINING AGENT 1 g 200 mL/hr IVPB 1 g 1 g, intravenous, at 200 mL/hr, Administer over 15 Minutes, Once, On Wed03/12/21 at 0730, For 1 dose cefTRIAXone injection 1 g (ROCEPHIN) Given 03/19/2021 9:08 AM FIELD TRAINING AGENT 1 g 1 g, intravenous, Daily, First dose (after last modification) on Wed03/19/21 at 0900, If needed, reconstitute vial per package insert instructions. See IVAG for administration guidelines. , Drug Monitoring Program: Pharmacist to adjust medication dosing based on indication and drug clearance factors., Indications: sbp prophylaxis cefTRIAXone injection 2 g (ROCEPHIN) Given 03/18/2021 8:48 AM FIELD TRAINING AGENT 2 g 2 g, intravenous, Daily, First dose (after last modification) on Wed03/18/21 at 0900, If needed, reconstitute vial per package insert instructions. See IVAG for administration guidelines. , Drug Monitoring Program: Pharmacist to adjust medication dosing based on indication and drug clearance factors., Indications: sbp prophylaxis ciprofloxacin tablet 500 mg (CIPRO) Given 03/24/2021 6:18 AM FIELD TRAINING AGENT 500 mg 500 mg, oral, Daily before breakfast, First dose on Luz Marina 03/20/21 at 0700, Take 2 hours before or 6 hours after antacids containing magnesium or aluminum, sucralfate, didanosine, polymeric phosphate binders, or products containing calcium, iron, or zinc., Drug Monitoring Program: Pharmacist to adjust medication dosing based on indication and drug clearance factors., Indications: Prophylaxis, medical Given 03/23/2021 6:34 AM FIELD TRAINING AGENT 500 mg Given 03/22/2021 7:02 AM FIELD TRAINING AGENT 500 mg dexmedeTOMIDine 4 mcg/mL Rate/Dose Change 03/14/2021 9:18 0.2 mcg/k g/hr 2.71 mL/hr in NaCl 0.9% 100 mL AM FIELD TRAINING AGENT infusion (PRECEDEX) 0.2-1.5 mcg/kg/hr ? 54.2 kg [...] care unit Rate/Dose Verify 03/14/2021 9:00 AM FIELD TRAINING AGENT 0.4 mcg/kg/hr 5.42 mL/hr Rate/Dose Change 03/14/2021 8:53 AM FIELD TRAINING AGENT 0.4 mcg/kg/hr 5.42 mL/hr doxycycline 100 mg in NaCl 0.9% New Bag 03/12/2021 9:13 PM FIELD TRAINING AGENT 100 mg 100 mL/hr IVPB (VIBRAMYCIN) 100 mg, intravenous, at 100 mL/hr, Administer over 60 Minutes, Every 12 hours scheduled, First dose on Wed03/12/21 at 0900, Mini-Bag Plus bag, Indications: Intra-abdominal infection, community acquired, Respiratory tract infection, healthcare associated New Bag 03/12/2021 8:59 AM FIELD TRAINING AGENT 100 mg 100 mL/hr doxycycline 100 mg in NaCl 0.9% New Bag 03/17/2021 8:44 PM FIELD TRAINING AGENT 100 mg 100 mL/hr IVPB (VIBRAMYCIN) 100 mg, intravenous, at 100 mL/hr, Administer over 60 Minutes, Every 12 hours scheduled, First dose (after last modification) on Luz Marina 03/13/21 at 0900, For 5 days, Mini-Bag Plus bag, Indications: Intra-abdominal infection, community acquired, Respiratory tract infection, healthcare associated New Bag 03/17/2021 11:08 AM FIELD TRAINING AGENT 100 mg 100 mL/hr New Bag 03/16/2021 8:38 PM FIELD TRAINING AGENT 100 mg 100 mL/hr folic acid tablet 1 mg Given 03/24/2021 8:52 AM FIELD TRAINING AGENT 1 mg 1 mg, oral, Daily, First dose on Luz Marina 03/13/21 at 1230 Given 03/23/2021 8:10 AM FIELD TRAINING AGENT 1 mg Given 03/22/2021 10:22 AM FIELD TRAINING AGENT 1 mg furosemide injection 20 mg (LASIX) Given 03/19/2021 9:08 AM FIELD TRAINING AGENT 20 mg 20 mg, intravenous, Every 24 hours scheduled, First dose on Wed03/14/21 at 1230, Adults: Doses less than 120 mg: IV push over 20 mg/minute. Doses 120 mg or greater: IVPB at 4 mg/minute. Peds/Neonates: Doses less than 120 mg over 0.5 mg/kg/minute. Doses 120 mg or greater: IVPB at 4 mg/minute. Given 03/18/2021 8:49 AM FIELD TRAINING AGENT 20 mg Given 03/17/2021 10:48 AM FIELD TRAINING AGENT 20 mg furosemide tablet 20 mg (LASIX) Given 03/24/2021 8:52 AM FIELD TRAINING AGENT 20 mg 20 mg, oral, Daily, First dose on Luz Marina 03/20/21 at 0900 Given 03/23/2021 8:10 AM FIELD TRAINING AGENT 20 mg Given 03/22/2021 10:22 AM FIELD TRAINING AGENT 20 mg heparin (porcine) Given 03/15/2021 5:35 AM FIELD TRAINING AGENT 5,000 Units Left Upper Arm injection 5,000 Units (Back) 5,000 Units, subcutaneous, Every 8 hours scheduled, First dose on Wed03/12/21 at 0645 Given 03/14/2021 8:40 PM FIELD TRAINING AGENT 5,000 Units Left Upper Arm (Back) Given 03/14/2021 2:51 PM FIELD TRAINING AGENT 5,000 Units Right Lower Abdomen iohexoL 300 mg iodine/mL solution 1-200 mL Given 03/12/2021 1:50 PM FIELD TRAINING AGENT 100 mL (OMNIPAQUE) 1-200 mL, intravenous, Once in imaging, contrast, Starting on Wed03/12/21 at 1346, For 1 dose, Dose per Radiant Medication Guidelines iohexoL 300 mg iodine/mL solution 1-200 mL Given 03/16/2021 2:37 AM FIELD TRAINING AGENT 100 mL (OMNIPAQUE) 1-200 mL, intravenous, Once in imaging, contrast, for Ct exam, Starting on Wed03/16/21 at 0230, For 1 dose, Dose per Radiant Medication Guidelines ketamine injection (KETALAR) Given 03/12/2021 9:42 AM FIELD TRAINING AGENT 30 mg Code/trauma/sedation medication, Starting on Wed03/12/21 at 0942 ketamine injection 60 mg (KETALAR) Given 03/12/2021 9:12 AM FIELD TRAINING AGENT 20 mg 60 mg, intravenous, Once, On Wed03/12/21 at 0845, For 1 dose Given 03/12/2021 8:50 AM FIELD TRAINING AGENT 20 mg lactulose (CHRONULAC) 200 g in sterile Given 03/12/2021 8:18 AM FIELD TRAINING AGENT 1,000 mL water 1,000 mL enema 1,000 mL, rectal, Once, On Wed03/12/21 at 0615, For 1 dose, Total dose= 1000 mL; Instill ~ 300 mL at a time, and retain for 15-20 minutes each Rectal Use Only. Refrigerate. PROTECT FROM LIGHT. lactulose solution 30 g (CHRONULAC) Given 03/24/2021 8:52 AM FIELD TRAINING AGENT 30 g 30 g, gastric tube, 3 times daily, First dose on Wed03/12/21 at 1400, Aim for 500 cc stool in 24 hours or 3-4 loose bowel movements per day Given 03/23/2021 9:49 PM FIELD TRAINING AGENT 30 g Given 03/23/2021 2:04 PM FIELD TRAINING AGENT 30 g LORazepam injection 1 mg (ATIVAN) 1 mg, intravenous, Every 4 hours PRN, se hui, Starting on Lu Zmarina 03/20/21 at 2120, For intravenous use, dilute with equal volume of 0.9% NS magnesium oxide tablet 400 mg (MAG-OX) Given 03/24/2021 6:18 AM FIELD TRAINING AGENT 400 mg 400 mg, oral, 2 times daily before breakfast and dinner, First dose on 03/23/21 at 0700 Given 03/23/2021 3:41 PM FIELD TRAINING AGENT 400 mg Given 03/23/2021 6:34 AM FIELD TRAINING AGENT 400 mg magnesium sulfate in D5W IVPB 1 g New Bag 03/15/2021 6:10 PM FIELD TRAINING AGENT 1 g 100 mL/hr 1 g, intravenous, at 100 mL/hr, Administer over 60 Minutes, Once, On 03/15/21 at 1800, For 1 dose, Over 1 hours. , Monitor the following for replacement: Magnesium magnesium sulfate in water IVPB 2 g New Bag 03/12/2021 8:03 AM FIELD TRAINING AGENT 2 g 25 mL/hr 2 g, intravenous, at 25 mL/hr, Administer over 120 Minutes, Once, On Wed03/12/21 at 0715, For 1 dose magnesium sulfate in water IVPB 2 g New Bag 03/15/2021 5:26 AM FIELD TRAINING AGENT 2 g 25 mL/hr 2 g, intravenous, at 25 mL/hr, Administer over 120 Minutes, Once, On 03/15/21 at 0600, For 1 dose magnesium sulfate in water IVPB 2 g New Bag 03/16/2021 5:08 AM FIELD TRAINING AGENT 2 g 25 mL/hr 2 g, intravenous, at 25 mL/hr, Administer over 120 Minutes, Once, On 03/16/21 at 0500, For 1 dose magnesium sulfate in New Bag 03/22/2021 4:18 PM FIELD TRAINING AGENT 2 g 25 mL/hr Right Antecubital water IVPB 2 g 2 g, intravenous, at 25 mL/hr, Administer over 120 Minutes, Once, On 03/22/21 at 1530, For 1 dose magnesium sulfate in water IVPB Rate/Dose Change 03/12/2021 4:02 PM FIELD TRAINING AGENT 50 mL/hr 4 g 4 g, intravenous, at 25 mL/hr, Administer over 240 Minutes, Once, On Wed03/12/21 at 1345, For 1 dose New Bag 03/12/2021 2:27 PM FIELD TRAINING AGENT 4 g 25 mL/hr magnesium sulfate in water IVPB 4 g New Bag 03/19/2021 3:40 PM FIELD TRAINING AGENT 4 g 25 mL/hr 4 g, intravenous, at 25 mL/hr, Administer over 240 Minutes, Once, On Wed03/19/21 at 1000, For 1 dose, Over 4 hours. melatonin tablet 3 mg Given 03/17/2021 2:30 AM FIELD TRAINING AGENT 3 mg 3 mg, oral, Once, On Wed03/17/21 at 0230, For 1 dose melatonin tablet 6 mg Given 03/23/2021 9:49 PM FIELD TRAINING AGENT 6 mg 6 mg, oral, Daily at bedtime, First dose (after last modification) on Wed03/17/21 at 2100 Given 03/23/2021 12:19 AM FIELD TRAINING AGENT 6 mg Given 03/22/2021 12:48 AM FIELD TRAINING AGENT 6 mg multivitamin (Adult MVI) 10 mL in NaCl New Bag 03/15/2021 8:06 AM FIELD TRAINING AGENT 255 mL/hr 0.9% 500 mL IVPB intravenous, at 255 mL/hr, Administer over 2 Hours, Daily, First dose on Luz Marina 03/13/21 at 0900, For 3 days, Protect from light. New Bag 03/14/2021 8:15 AM FIELD TRAINING AGENT 255 mL/hr New Bag 03/13/2021 9:40 AM FIELD TRAINING AGENT 255 mL/hr NaCl 0.9% infusion Rate/Dose Verify 03/16/2021 12:00 AM 20 mL/hr 20 mL/hr 20-500 mL/hr, intravenous, FIELD TRAINING AGENT Once as needed, Between Units of Blood Products, Starting on Wed03/15/21 at 1218, For 1 dose, Infuse at the same rate as the blood infusion until tubing cleared. Nurse may reduce rate to 20 mL/hour or as otherwise directed until next blood infusion arrives then discontinue when infusion complete. Rate/Dose Verify 03/15/2021 9:00 PM FIELD TRAINING AGENT 20 mL/hr 20 mL/hr Rate/Dose Verify 03/15/2021 8:00 PM FIELD TRAINING AGENT 20 mL/hr 20 mL/hr naloxone injection 0.2 [...] mL/hr mcg/mL in D5W 250 mL AM FIELD TRAINING AGENT infusion 0-0.3 mcg/kg/min ? 54.2 kg Dosing weight (0-60.975 mL/hr, rounded to 0-60.98 mL/hr), intravenous, Continuous, Starting on Wed03/12/21 at 1100, Protect from light and avoid extravasation, Patient Type: Sepsis, Initiate at: 0.05 mcg/kg/min, Titrate at: 0.05 mcg/kg/min. every 5 min., Wean at: 0.01 mcg/kg/min. every 5 min., Goal: Other, Goal: MAP 60-65 New Bag 03/14/2021 10:03 PM FIELD TRAINING AGENT 0.01 mcg/kg/min 2.03 mL/hr Rate/Dose Change 03/13/2021 12:23 PM FIELD TRAINING AGENT 0.02 mcg/kg/min 4.07 mL/hr norepinephrine 16 mcg/mL in NaCl Rate/Dose 03/12/2021 0.07 14. 2 0.9% 250 mL infusion Change 10:01 AM FIELD TRAINING AGENT mcg/kg/min mL/hr Code/trauma/sedation continuous med, Starting on Wed03/12/21 at 0942 Rate/Dose Change 03/12/2021 9:53 AM FIELD TRAINING AGENT 0.08 mcg/kg/min 16.3 mL/hr Rate/Dose Change 03/12/2021 9:45 AM FIELD TRAINING AGENT 0.1 mcg/kg/min 20.3 mL/hr octreotide 2 mcg/mL in Rate/Dose Verify 03/13/2021 8:00 AM 25 mcg/hr 12.5 mL/hr NaCl 0.9% 250 mL infusion FIELD TRAINING AGENT (SandoSTATIN) 25 mcg/hr (12.5 mL/hr), intravenous, Continuous, Starting on Wed03/12/21 at 1000, Protect from light. Rate/Dose Verify 03/13/2021 7:00 AM FIELD TRAINING AGENT 25 mcg/hr 12.5 mL/hr Rate/Dose Verify 03/13/2021 6:00 AM FIELD TRAINING AGENT 25 mcg/hr 12.5 mL/hr octreotide 2 mcg/mL in Rate/Dose Verify 03/16/2021 9:00 AM 25 mcg/hr 12.5 mL/hr NaCl 0.9% 250 mL infusion FIELD TRAINING AGENT (SandoSTATIN) 25 mcg/hr (12.5 mL/hr), intravenous, Continuous, Starting on Luz Marina 03/13/21 at 0845, For 72 hours, Protect from light. Rate/Dose Verify 03/16/2021 8:00 AM FIELD TRAINING AGENT 25 mcg/hr 12.5 mL/hr Rate/Dose Verify 03/16/2021 7:00 AM FIELD TRAINING AGENT 25 mcg/hr 12.5 mL/hr OLANZapine tablet 5 mg (ZyPREXA) Given 03/18/2021 9:29 PM FIELD TRAINING AGENT 5 mg 5 mg, oral, Daily at bedtime, First dose on Wed03/18/21 at 1730 OLANZapine tablet 5 mg (ZyPREXA) Given 03/22/2021 12:48 AM FIELD TRAINING AGENT 5 mg 5 mg, oral, Bedtime PRN, sleep, anxiety, Starting on Wed03/19/21 at 1830 Given 03/21/2021 1:11 AM FIELD TRAINING AGENT 5 mg oxyCODONE IR tablet 5 mg (ROXICODONE) Given 03/21/2021 3:28 AM FIELD TRAINING AGENT 5 mg 5 mg, oral, Every 4 hours PRN, moderate pain or score 4-6 of 10, severe pain or score 7-10 of 10, Starting on Wed03/14/21 at 1957 Given 03/20/2021 1:56 AM FIELD TRAINING AGENT 5 mg Given 03/16/2021 4:23 AM FIELD TRAINING AGENT 5 mg oxyCODONE IR tablet 5 mg (ROXICODONE) Given 03/22/2021 7:02 AM FIELD TRAINING AGENT 5 mg 5 mg, oral, Once as needed, moderate pain or score 4-6 of 10, severe pain or score 7-10 of 10, Starting on 03/22/21 at 0354, For [address] tablet 40 mg (PROTONIX) Given 03/24/2021 8:52 AM FIELD TRAINING AGENT 40 mg 40 mg, oral, 2 times daily, First dose on Wed03/19/21 at 2100, Swallow whole. Do NOT crush, chew, or split tablet. Given 03/23/2021 9:49 PM FIELD TRAINING AGENT 40 mg Given 03/23/2021 8:09 AM FIELD TRAINING AGENT 40 mg pantoprazole injection 40 mg (PROTONIX) Given 03/12/2021 8:49 AM FIELD TRAINING AGENT 40 mg 40 mg, intravenous, Every 24 hours scheduled, First dose on Wed03/12/21 at 0900, Administer IV push over 2 minutes. Add 10 mL NS to 40 mg vial for a final concentration of 4 mg/mL. pantoprazole injection 40 mg (PROTONIX) Given 03/19/2021 9:08 AM FIELD TRAINING AGENT 40 mg 40 mg, intravenous, Every 12 hours scheduled, First dose (after last modification) on Wed03/12/21 at 2100, Administer IV push over 2 minutes. Add 10 mL NS to 40 mg vial for a final concentration of 4 mg/mL. Given 03/18/2021 8:49 AM FIELD TRAINING AGENT 40 mg Given 03/17/2021 8:34 PM FIELD TRAINING AGENT 40 mg phenylephrine injection Given 03/12/2021 9:46 AM FIELD TRAINING AGENT 100 mcg Code/trauma/sedation medication, Starting on Wed03/12/21 at 0946 phytonadione (vitamin K1) 10 mg in New Bag 03/16/2021 8:30 AM FIELD TRAINING AGENT 10 mg 51 mL/hr NaCl 0.9% IVPB (AQUA-MEPHYTON) 10 mg, intravenous, at 51 mL/hr, Administer over 60 Minutes, Daily, First dose on Wed03/14/21 at 1045, For 3 doses, Protect from light. New Bag 03/15/2021 9:18 AM FIELD TRAINING AGENT 10 mg 51 mL/hr New Bag 03/14/2021 11:34 AM FIELD TRAINING AGENT 10 mg 51 mL/hr phytonadione (vitamin K1) 10 mg in New Bag 03/16/2021 8:15 AM FIELD TRAINING AGENT 10 mg 51 mL/hr NaCl 0.9% IVPB (AQUA-MEPHYTON) 10 mg, intravenous, at 51 mL/hr, Administer over 60 Minutes, Once, On 03/16/21 at 0800, For 1 dose, Protect from light. phytonadione (vitamin K1) tablet 10 mg Given 03/23/2021 11:11 AM FIELD TRAINING AGENT 10 mg (MEPHYTON) 10 mg, oral, Once, On 03/23/21 at 1045, For 1 dose phytonadione (vitamin K1) tablet 5 mg Given 03/21/2021 8:[address] 5 mg (MEPHYTON) 5 mg, oral, Daily, First dose on Wed03/19/21 at 1300, For 3 doses Given 03/20/2021 10:15 AM FIELD TRAINING AGENT 5 mg Given 03/19/2021 1:56 PM FIELD TRAINING AGENT 5 mg phytonadione (vitamin K1) tablet 5 mg Given 03/22/2021 10:22 AM FIELD TRAINING AGENT 5 mg (MEPHYTON) 5 mg, oral, Daily, First dose (after last reorder) on 03/22/21 at 0900, For 3 doses piperacillin-tazobactam in dextrose New Bag 03/13/2021 5:34 AM FIELD TRAINING AGENT 3.375 g 100 mL/hr (iso-osm) IVPB 3.375 g (ZOSYN) 3.375 g, intravenous, at 100 mL/hr, Administer over 0.5 Hours, Every 6 hours scheduled, First dose on Wed03/12/21 at 0815, Drug Monitoring Program: Pharmacist to adjust medication dosing based on indication and drug clearance factors., Indications: Intra-abdominal infection, community acquired New Bag 03/12/2021 11:36 PM FIELD TRAINING AGENT 3.375 g 100 mL/hr New Bag 03/12/2021 6:14 PM FIELD TRAINING AGENT 3.375 g 100 mL/hr piperacillin-tazobactam in dextrose New Bag 03/17/2021 11:49 P M 3.375 g 100 mL/hr (iso-osm) IVPB 3.375 g (ZOSYN) FIELD TRAINING AGENT 3.375 g, intravenous, at 100 mL/hr, Administer over 0.5 Hours, Every 6 hours scheduled, First dose (after last modification) on Luz Marina 03/13/21 at 1200, For 19 doses, Drug Monitoring Program: Pharmacist to adjust medication dosing based on indication and drug clearance factors., Indications: Intra-abdominal infection, community acquired New Bag 03/17/2021 6:25 PM FIELD TRAINING AGENT 3.375 g 100 mL/hr New Bag 03/17/2021 1:09 PM FIELD TRAINING AGENT 3.375 g 100 mL/hr potassium chloride ER [...] tablet 40 mEq Given 03/22/2021 4:19 PM FIELD TRAINING AGENT 40 mEq (KLORCON/K-TAB) 40 mEq, oral, Once, On 03/22/21 at 1415, For 1 dose, Swallow whole. Do NOT crush, chew, or split tablet. potassium chloride ER tablet 40 mEq Given 03/23/2021 8:09 AM FIELD TRAINING AGENT 40 mEq (KLORCON/K-TAB) 40 mEq, oral, Once, [...] 10 mEq New Bag 03/12/2021 9:15 AM FIELD TRAINING AGENT 10 mEq 100 mL/hr 10 mEq, intravenous, at 100 mL/hr, Administer over 60 Minutes, Every 1 hour, First dose on Wed03/12/21 at 0715, For 2 doses, Peripheral Line: 10 mEq per bag over 1 hour each. New Bag 03/12/2021 8:03 AM FIELD TRAINING AGENT 10 mEq 100 mL/hr potassium chloride IVPB 10 mEq New Bag 03/14/2021 9:16 AM FIELD TRAINING AGENT 10 mEq 100 mL/hr 10 mEq, intravenous, at 100 mL/hr, Administer over 60 Minutes, Every 1 hour, First dose on Wed03/14/21 at 0730, For 3 doses, Peripheral Line: 10 mEq per bag over 1 hour each. New Bag 03/14/2021 9:13 AM FIELD TRAINING AGENT 10 mEq 100 mL/hr New Bag 03/14/2021 8:10 AM FIELD TRAINING AGENT 10 mEq 100 mL/hr potassium chloride IVPB 10 mEq New Bag 03/18/2021 4:59 PM FIELD TRAINING AGENT 10 mEq 100 mL/hr 10 mEq, intravenous, at 100 mL/hr, Administer over 60 Minutes, Every 1 hour, First dose on Wed03/18/21 at 1200, For 4 doses, Peripheral Line: 10 mEq per bag over 1 hour each. New Bag 03/18/2021 3:41 PM FIELD TRAINING AGENT 10 mEq 100 mL/hr New Bag 03/18/2021 2:28 PM FIELD TRAINING AGENT 10 mEq 100 mL/hr potassium chloride IVPB 20 mEq in New Bag 03/12/2021 9:[address] 20 mEq 100 mL/hr 100 mL (premix) 20 mEq, intravenous, at 100 mL/hr, Administer over 60 Minutes, Every 1 hour, First dose on Wed03/12/21 at 1900, For 3 doses, Central Line with Telemetry: 20 mEq per bag over 1 hour each. New Bag 03/12/2021 8:08 PM FIELD TRAINING AGENT 20 mEq 100 mL/hr New Bag 03/12/2021 6:57 PM FIELD TRAINING AGENT 20 mEq 100 mL/hr potassium chloride IVPB [...] hour each. New Bag 03/13/2021 2:13 AM FIELD TRAINING AGENT 20 mEq 100 mL/hr potassium chloride IVPB 20 mEq in New Bag 03/15/2021 8:[address] 20 mEq 100 mL/hr 100 mL (premix) 20 mEq, intravenous, at 100 mL/hr, Administer over 60 Minutes, Every 1 hour, First dose on Wed03/15/21 at 0600, For 4 doses, Central Line with Telemetry: 20 mEq per bag over 1 hour each. New Bag 03/15/2021 7:26 AM FIELD TRAINING AGENT 20 mEq 100 mL/hr New Bag 03/15/2021 6:28 AM FIELD TRAINING AGENT 20 mEq 100 mL/hr potassium chloride IVPB [...] Standard Schedule New Bag 03/15/2021 6:08 PM FIELD TRAINING AGENT 20 mEq 100 mL/hr New Bag 03/15/2021 5:03 PM FIELD TRAINING AGENT 20 mEq 100 mL/hr potassium chloride IVPB 20 mEq in New Bag 03/16/2021 5:[address] 20 mEq 100 mL/hr 100 mL (premix) 20 mEq, intravenous, at 100 mL/hr, Administer over 60 Minutes, Every 1 hour, First dose on [place] 03/16/21 at 0500, For 1 dose, Central Line with Telemetry: 20 mEq per bag over 1 hour each. potassium chloride packet 40 mEq (KLOR-C ON) Given 03/13/2021 2:13 AM FIELD TRAINING AGENT 40 mEq 40 mEq, oral, Once, On Luz Marina 03/13/21 at 0215, For 1 dose, Dissolve one packet in 4-5 ounces of water or other beverage prior to administration. potassium phosphate in NaCl Rate/Dose Verify 03/15/2021 7:00 AM FIELD TRAINING AGENT 83.3 mL/hr 0.9% IVPB 15 mmol 15 mmol, intravenous, at 83.3 mL/hr, Administer over 3 Hours, Once, On [facility] 03/15/21 at 0600, For 1 dose New 03/15/2021 6:11 AM FIELD TRAINING AGENT 15 mmol 83.3 mL/hr potassium phosphate in NaCl Rate/Dose Verify 03/15/2021 8:00 PM FIELD TRAINING AGENT 83.3 mL/hr 0.9% IVPB 15 mmol 15 mmol (rounded from 13.55 mmol = 0.25 mmol/kg ? 54.2 kg Dosing weight), intravenous, at 83.3 mL/hr, Administer over 3 Hours, Once, On [facility] 03/15/21 at 1800, For 1 dose, Monitor the following for replacement: Phosphorus New Bag 03/15/2021 6:17 PM FIELD TRAINING AGENT 15 mmol 83.3 mL/hr potassium phosphate in NaCl Rate/Dose Verify 03/16/2021 9:00 AM FIELD TRAINING AGENT 83.3 mL/hr 0.9% IVPB 15 mmol 15 mmol, intravenous, at 83.3 mL/hr, Administer over 3 Hours, Every 3 hours, First dose (after last modification) on Wed03/16/21 at 0500, For 2 doses New Bag 03/16/2021 8:13 AM FIELD TRAINING AGENT 15 mmol 83.3 mL/hr Rate/Dose Verify 03/16/2021 8:00 AM FIELD TRAINING AGENT 83.3 mL/hr potassium phosphates 30 mmol in New Bag 03/12/2021 10:50 AM CS T 30 mmol 85 mL/hr NaCl 0.9% IVPB 30 mmol, intravenous, at 85 mL/hr, Administer over 6 Hours, Once, On Wed03/12/21 at 0715, For 1 dose, Peripheral or central line. ixyoaiecd-svagmc-shujhihww 280-160-250 mg Given 2020 9:40 PM FIELD TRAINING AGENT 2 packets per packet 2 packet (PHOS-NAK) 2 packet, oral, Every 4 hours while awake, First dose on Wed03/19/21 at 1000, For 4 doses, Monitor the following for replacement: Phosphorus Given 03/19/2021 5:57 PM FIELD TRAINING AGENT 2 packets Given 03/19/2021 3:09 PM FIELD TRAINING AGENT 2 packets propofoL (DIPRIVAN) 10 mg/mL injection - ADS Override Pull Starting on Wed03/12/21 at 0923, For 1 dose, Created by cabinet override propofol 10 mg/mL Rate/Dose Verify 03/14/2021 6:00 25 mcg/kg/min 8.13 mL/hr infusion (DIPRIVAN) AM FIELD TRAINING AGENT 5-80 mcg/kg/min ? 54.2 kg Dosing weight (1.626-26.016 mL/hr, rounded to 1.63-26.02 mL/hr), intravenous, Continuous, Starting on Wed03/12/21 at 1100, Type: Titrate, Initiate at: 5 mcg/kg/min., Titrate at: 5 mcg/kg/min. every 5 min., Goal: Other, Goal: RASS -2 Rate/Dose Change 03/14/2021 4:50 AM FIELD TRAINING AGENT 25 mcg/kg/min 8.13 mL/hr Rate/Dose Verify 03/14/2021 4:00 AM FIELD TRAINING AGENT 30.012 mcg/kg/min 9.76 mL/h r propofoL injection (DIPRIVAN) Given 03/12/2021 9:45 AM FIELD TRAINING AGENT 30 mg intravenous, Code/trauma/sedation medication, Starting on Wed03/12/21 at 0945 propofoL injection (DIPRIVAN) Given 03/12/2021 9:46 AM FIELD TRAINING AGENT 30 mg intravenous, Code/trauma/sedation medication, Starting on Wed03/12/21 at 0946 rifAXIMin tablet 550 mg (XIFAXAN) Given 03/24/2021 8:52 AM FIELD TRAINING AGENT 550 mg 550 mg, oral, 2 times daily, First dose on Luz Marina 03/13/21 at 0900, Indications: Prophylaxis, medical Given 03/23/2021 9:49 PM FIELD TRAINING AGENT 550 mg Given 03/23/2021 8:10 AM FIELD TRAINING AGENT 550 mg rocuronium injection (ZEMURON) Given 03/12/2021 9:45 AM FIELD TRAINING AGENT 70 mg Code/trauma/sedation medication, Starting on Wed03/12/21 at 0945 sodium bicarbonate tablet 650 mg Given 03/23/2021 8:10 AM FIELD TRAINING AGENT 650 mg 650 mg, oral, 3 times daily, First dose on Wed03/19/21 at 1400 Given 03/22/2021 10:49 PM FIELD TRAINING AGENT 650 mg Given 03/22/2021 3:05 PM FIELD TRAINING AGENT 650 mg sodium bicarbonate tablet 650 mg Given 03/24/2021 8:53 AM FIELD TRAINING AGENT 650 mg 650 mg, oral, 4 times daily, First dose (after last modification) on Wed03/23/21 at 1700 Given 03/23/2021 9:49 PM FIELD TRAINING AGENT 650 mg Given 03/23/2021 5:38 PM FIELD TRAINING AGENT 650 mg sodium chloride 0.9 % flush 100 mL Given 03/12/2021 1:47 PM FIELD TRAINING AGENT 100 mL 100 mL, intravenous, Once in imaging, line care, needed for CT, Starting on Wed03/12/21 at 1346, For 1 dose sodium chloride 0.9 % flush 100 mL Given 03/16/2021 2:37 AM FIELD TRAINING AGENT 100 mL 100 mL, intravenous, Once in imaging, line care, for CT exam, Starting on Wed03/16/21 at 0230, For 1 dose sodium chloride 0.9 % injection 10 mL Given 03/12/2021 1:46 PM FIELD TRAINING AGENT 10 mL 10 mL, intravenous, Once in imaging, line care, Starting on Wed03/12/21 at 1346, For 1 dose sodium chloride 0.9 % injection 10 mL Given 03/17/2021 6:48 AM FIELD TRAINING AGENT 10 mL 10 mL, intravenous, As needed, line care, Central Venous Catheter (CVC) Non-Tunneled Non-Valved, Starting on Wed03/12/21 at 1706, Prior to blood sampling, post blood transfusion or post blood sampling. Given 03/17/2021 12:12 AM FIELD TRAINING AGENT 10 mL sodium chloride 0.9 % injection 10 mL Given 03/16/2021 2:36 AM FIELD TRAINING AGENT 10 mL 10 mL, intravenous, Once in [...] injection 5-15 mL Given 03/23/2021 9:51 PM FIELD TRAINING AGENT 10 mL 5-15 mL, intravenous, Every 12 hours scheduled, First dose on Wed03/12/21 at 2100, Central Venous Catheter (CVC) Non-Tunneled Non-Valved: When no infusion to maintain patency. Flush 5 mL per lumen. Given 03/23/2021 8:10 AM FIELD TRAINING AGENT 10 mL Given 03/22/2021 10:51 PM FIELD TRAINING AGENT 10 mL spironolactone tablet 50 mg (ALDACTONE) Given 03/24/2021 8:52 AM FIELD TRAINING AGENT 50 mg 50 mg, oral, Daily, First dose on [place]z [place] 03/20/21 at 0900 Given 03/23/2021 8:10 AM FIELD TRAINING AGENT 50 mg Given 03/22/2021 10:22 AM FIELD TRAINING AGENT 50 mg thiamine tablet 100 mg (VITAMIN B1) Given 03/24/2021 8:52 AM FIELD TRAINING AGENT 100 mg 100 mg, oral, Daily, First dose on Luz Marina 03/13/21 at 1230 Given 03/23/2021 8:10 AM FIELD TRAINING AGENT 100 mg Given 03/22/2021 10:22 AM FIELD TRAINING AGENT 100 mg vancomycin 1,000 mg in NaCl [...] mL/hr in NaCl 0.9% 100 mL AM FIELD TRAINING AGENT infusion (PITRESSIN) 0.04 Units/min (12 mL/hr), intravenous, Continuous, Starting on Wed03/12/21 at 1245 New Bag 03/15/2021 10:06 AM FIELD TRAINING AGENT 0.04 Units/min 12 mL/hr Rate/Dose Verify 03/15/2021 10:00 AM FIELD TRAINING AGENT 0.04 Units/min 12 mL/hr documented in this encounter Active and Recently Administered Medications Times are shown in FIELD TRAINING AGENT. Scheduled Medication Order 03/22/2021 03/23/2021 03/24/2021 ciprofloxacin [...] 0 634 (Given - Provider: Lisa Stinson RSumaN.)1541 (Given - Provider: Hope Guerrier RSumaN.) [...] - Provider: Andrew AndersonNSuma)215 (Given - Provider: Andrew BaronNSuma) 0853 (Not Given - Provider: Hope Guerrier [...] COVID19 Pending 03/12/2021 03/12/2021 03/12/2021 7:32 PM FIELD TRAINING AGENT documented as of this encounter Care Teams Ink Grinder Relationship Specialty Start Date End Date Elsewhere, Pcp PCP - General Family Medicine 03/10/20 11/30/21 Ervin Schroeder MD Referring Provider Family Medicine 03/24/[address] [place] [id number] documented as of this encounter
--- OUTSIDE RECORDS SUMMARY | 2022-02-16 12:33 | XMS_ITS | Encounter Summary ---
:1990 Author Organization [facility] Address [address] [place] [address] Care Team Providers Name Role Phone Elsewhere, Pcp Primary Care Provider Unavailable Encounter Details Date Type Department Care Team Description 03/10/2020 Admin Visit Department of Family Medicine, [address] [id number] [facility] [phone] Social History Tobacco Use Types Packs/Day Years [...] you attend buddhist or Patient refused 2021 christianity services? 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 [address] [place] [phone] Virtual Visit Transplant Matthew Jerome 2 Tyrell Rodriguez, Lilian [address] [place] [phone] Office Visit Gastroenterology and Matthew Jerome 2 Hepatology Tyrell Rodriguez M.D. [address] [place] [phone] Appointment Radiology Matthew Jerome 2, M.B.B.S., M.D. [address] [place] [phone] Hospital Gastroenterology and Matthew Jerome Cirrhos is Alcoholic (HCC) 2 Encounter Hepatology Tyrell Rodriguez M.D. [address] [place] [phone] Anesthesia Event Gastroenterology and Rl, 2 Hepatology Ervin Burgos M.D. [address] [place] [phone] Surgery Gastroenterology and Mousa, Matthew ESOPHAG OGASTRODUODENOSCOPY 2 Hepatology Tyrell Rodriguez M.D. [address] [place] [address] [phone] Scheduled Procedures Name Priority Associated Diagnoses Date/Time ESOPHAGOGASTRODUODENOSCOPY Cirrhosis Alc oholic (HCC) 03/20/2022 8:45 AM FARM BOSS Hypertension Portal (HCC) documented as of this encounter Visit Diagnoses Not on filedocumented in this encounter Additional Health Concerns Infection Onset Date Last Indicated Resolved Time COVID19 Pending 03/10/2020 03/10/2020 03/11/2020 12:40 PM FARM BOSS documented as of this encounter Care Teams Continuous Loft Operator Relationship Specialty Start Date End Date Elsewhere, Pcp PCP - General Family Medicine 03/10/20 11/30/21 documented as of this encounter
--- OUTSIDE RECORDS SUMMARY | 2022-02-16 12:33 | XMS_ITS | Encounter Summary ---
:[address] [facility] Address [address] [place] [address] Care Team Providers Name Role Phone Elsewhere, Pcp Primary Care Provider Unavailable Encounter Details Date Type Department Care Team Description 08/27/2020 Orders Only [facility] PCP [facility] Sa yoav Trujillo M.D. [address] [place], [place] [phone] (Wo rk) Social History [...] you attend religion or Patient refused 2021 muslim services? 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 [address] [place] [phone] Virtual Visit Transplant Matthew Jerome 2 Vik RodriguezBGraeme, Lilian [address] [place] [phone] Office Visit Gastroenterology and Matthew Jerome 2 Hepatology Vik RodriguezBGraeme, Lilian [address] [place] [phone] Appointment Radiology Matthew Jerome 2 YVikBGraeme, Lilian [address] [place] [phone] Hospital Gastroenterology and [facility] Cirrhos is Alcoholic (HCC) 2 Encounter Hepatology Tyrell Rodriguez M.D. [address] [place] [address] [phone] Anesthesia Event Gastroenterology and Rl, 2 Hepatology Ervin Burgos M.D. [address] [place] [address] [phone] Surgery Gastroenterology and [facility] ESOPHAG OGASTRODUODENOSCOPY 2 Hepatology Tyrell Rodriguez M.D. [address] [place] [phone] Scheduled Procedures Name Priority Associated Diagnoses Date/Time ESOPHAGOGASTRODUODENOSCOPY Cirrhosis Alc oholic (HCC) 03/20/2022 8:45 AM SENIOR UI SOFTWARE ENGINEER Hypertension Portal (HCC) documented as of this encounter Visit Diagnoses Not on filedocumented in this encounter Care Teams Shell Sorter Relationship Specialty Start Date End Date Elsewhere, Pcp PCP - General Family Medicine 03/10/20 11/30/21 documented as of this encounter
--- OUTSIDE RECORDS SUMMARY | 2022-02-16 12:33 | XMS_ITS | Encounter Summary ---
:1990 Author Organization [facility] Address [address] [place] [address] Care Team Providers Name Role Phone Elsewhere, Pcp Primary Care Provider Unavailable Reason for Visit Reason Comments Communication Encounter Details Date Type Department Care Team Description 07/12/2020 Clinical Communication Department of [facility], Pcp Communication Medicine, [facility], in [place], [place] [address] [place] [phone] Social History Tobacco Use Types Packs/Day Years [...] you attend congregational or Patient refused 2021 mandaen services? Do [...] at Date Recorded Female 04/12/2021 7:39 PM PARTS ADVISOR documented as of this encounter Miscellaneous [...] or daycare Select appropriate regional recommendations: : [facility]- COVID only testing recommended (End Screening) Plan: Endpoint recommendation: Testing indicated, advised to be swabbed for COVID-19 Only , sent to [facility] located at [address] [place] [address]. The entrance is on the north side of the building. You must call [phone] during the hours of 7am to 6 [...] sending patient for testing in [facility] or [facility], route encounter to the correct testing pool. S ADVISOR documented in this encounter Plan of Treatment Upcoming Encounters Date Type Specialty Care Team Description Telemedicine Transplant 2 Appointment Radiology Matthew Jerome 2 Tyrell Rodriguez M.D. [address] [place] [address] [phone] Appointment Gastroenterology demian Silver 2 Hepatology Yue Burciaga M.D. [address] [place] [phone] Virtual Visit Transplant Matthew Jerome 2 YTyrell M.D. [address] [place] [phone] Office Visit Gastroenterology and Matthew Jerome 2 Hepatology Tyrell Rodriguez M.D. [address] [place] [address] [phone] Appointment Radiology Matthew Jerome 2 YTyrell M.D. [address] [place] [address] [phone] Hospital Gastroenterology and Matthew Jerome Cirrhos is Alcoholic (HCC) 2 Encounter Hepatology Tyrell Rodriguez M.D. [address] [place] [address] [phone] Anesthesia Event Gastroenterology and Rl, [place] Hepatology Ervin Burgos M.D. [facility] [place] [phone] Surgery Gastroenterology and Mousa, Matthew ESOPHAG OGASTRODUODENOSCOPY 2 Hepatology Tyrell Rodriguez M.D. [address] [place] [address] [phone] Scheduled Procedures Name Priority Associated Diagnoses Date/Time ESOPHAGOGASTRODUODENOSCOPY Cirrhosis Alc oholic (HCC) 03/20/2022 8:45 AM PARTS ADVISOR Hypertension Portal (HCC) documented as of this encounter Visit Diagnoses Not on filedocumented in this encounter Care Teams Beef Pusher Relationship Specialty Start Date End Date Elsewhere, Pcp PCP - General Family Medicine 03/10/20 11/30/21 documented as of this encounter
--- OUTSIDE RECORDS SUMMARY | 2022-02-16 12:33 | XMS_ITS ---
:1990 Author Organization [facility] Address [address] [place] [address] Care Team Providers Name Role Phone Ana Red P.A.-C. Primary Care Provider Transplant [facility], [place] - MNMCEvaluation began on 09/26/2021Marked as Deferred on 10/16/2021 Liver CoordinatorTXP PRE LIVER NURSE TEAM 2 ROCHPhone: N/AFax: N/AEmail: N/A Scores Score Value Updated Expires Exceptions/Reas ons CPRA Not available UNOS MELD Not available MELD (Calc) 26 02/16/2022 [place] Organ Diagnosis Organ Primary Contributory Liver Alcoholic Cirrhosis Care Team Name Role Phone Fax Email TXP PRE LIVER Liver Coordinator N/A N/A N/A NURSE TEAM 2 DAYRON Vann, Transplant Surgeon [phone] Jeff [email or web address] Matthew Jerome, Referring Provider [phone] [email or web address].Lilian Hudson Transplant Rn Care Transition du Events Pre-Transplant Referred: 08/14/2021 Evaluation began: 09/26/2021 Committee: 10/15/2021 Appointments (01/17/2022 - 03/19/2022) When With Description 01/27/2022 TXP Canceled (Patient: H ospitalized / ill) 01/28/2022 TXP Canceled (Patient: H ospitalized / ill) 01/28/2022 LAB Canceled (Clinic: Sc heduling Error) 01/28/2022 G[facility] - Queenie, O Canceled (Patient: H ospitalized / ill) 02/10/2022 TXP - Jagdeep Reyes Alcoholic Cirrhosis Of Liver With Ascites (HCC) [K70.31 (ICD-10-CM)] (Primar y Dx) 02/12/2022 GIMarylou Luna Canceled (Clinic: Re quest) 02/12/2022 LAB Alcohol [...] Use Disorder (Dependence) Alcohol Remission (HCC) 02/12/2022 TXP - Vanessa Hollingsworth 03/03/2022 TXP 03/04/2022 Marylou Guerra
--- OUTSIDE RECORDS SUMMARY | 2022-02-16 12:33 | XMS_ITS | Encounter Summary ---
:1990 Author Organization [facility] Address [address] [place] [address] Care Team Providers Name Role Phone Elsewhere, Pcp Primary Care Provider Unavailable Reason for Visit Reason Onset Date Comments Outpatient COVID-19 Testing 03/10/2020 Encounter Details Date Type Department Care Team Description 03/10/2020 External Outreach Department of Pedro Evans Infect ion Upper Internal Medicine in [facility] Res[facility] (Primary [place], [place] [address]) [address] [place], [place] [phone] Social History Tobacco Use Types Packs/Day Years [...] you attend buddhist or Patient refused 2021 pentecostal services? Do [...] at Date Recorded Female 04/12/2021 7:39 PM RIB KNITTER documented as of this encounter Progress Notes Yue Cheng R.N. - 03/10/2020 3:17 PM CST Encounter created for the drive-through COVID-19 testing. KNITTER documented in this encounter Plan of Treatment Upcoming Encounters Date Type Specialty Care Team Description Telemedicine Transplant 2 Appointment Radiology Matthew Jerome 2 YTyrell, Lilian [address] [place] [phone] Appointment Gastroenterology and Adrianne, 2 Hepatology Yue Burciaga M.D. [address] [place] [phone] Virtual Visit Transplant Matthew Jerome 2 YTyrell, Lilian [address] [place] [address] [phone] Office Visit Gastroenterology and [facility] 2 Hepatology Tyrell Rodriguez M.D. [address] [place] [phone] [facility] 2 Tyrell Rodriguez M.D. [address] [place] [phone] [address] G[address]enterology and [facility] Cirrhos is Alcoholic (HCC) 2 Encounter Hepatology Tyrell Rodriguez M.D. [address] [place] [phone] Anesthesia Event Gastroenterology and Rl, 2 Hepatology Ervin Burgos M.D. [address] [place] [phone] [facility] ESOPHAG OGASTRODUODENOSCOPY 2 Hepatology Tyrell Rodriguez M.D. [address] [place] [phone] Scheduled Procedures Name Priority Associated Diagnoses Date/Time ESOPHAGOGASTRODUODENOSCOPY Cirrhosis Alc oholic (HCC) 03/20/2022 8:45 AM RIB KNITTER Hypertension Portal (HCC) documented as of this encounter Procedures Procedure Name Priority Date/Time Associated Diagnosis Comme nts SARS CORONAVIRUS-2 Routine 03/10/2020 4:10 PM Infection Upper Results for this RNA, V RIB KNITTER Respiratory procedure are i n the results section. documented in this encounter Results SARS Coronavirus-2 RNA, V Symptomatic (03/10/2020 4:10 PM RIB KNITTER) [facility] Method Time Signature SARS-CoV-2 Swab, 03/11/2020 MKTO Specimen Nasopharynx 12:38 PM Source RIB KNITTER SARS CoV-2 Undetected Undetected 03/11/2020 ANN RNA, TMA 12:38 PM RIB KNITTER Comment: SARS-CoV-2 RNA absent. This result does not rule out COVID-19 in the patient, as the sensitivity of the test depends o n the timing of the specimen collection and the quality of the specim en. Result should be correlated with patient's history and clinical presentat ion. ----ADDITIONAL INFORMATION---- This test is performed using the Aptima SARS-CoV-2 assay ([employer] which has received Emergency Use Authori zation (EUA) by the U.S. Food and Drug Administration. Fact sheets for this Emergency Use Autho rization (EUA) assay can be found at the following links: For Healthcare Providers: https://www.[employer] a.gov/media/263597/download For Patients: https://www.fda.gov/media/ 561734/download Specimen Anatomical Collection Method Collection Time Receive d Time (Source) Location / / Volume Laterality Varies 03/10/2020 4:10 PM 0 (Nasopharynx) RIB KNITTER 11:20 PM RIB KNITTER Pedro Evans D.O. LAB MICROBIOLOGY - GENERAL O JANERAPREMA Performing Organization Address City/State/ZIP Code Phon e Number - [address] [place] [address] [place] [address] [address] documented in this encounter Visit Diagnoses Diagnosis Infection Upper Respiratory - Primary Cirrhosis Alcoholic (HCC) Cirrhosis Alcoholic (HCC) Hypertension Portal (HCC) documented in this encounter Additional Health Concerns Infection Onset Date Last Indicated Resolved Time COVID19 Pending 03/10/2020 03/10/2020 03/11/2020 12:40 PM RIB KNITTER documented as of this encounter Care Teams Propellant Assembler Relationship Specialty Start Date End Date Elsewhere, Pcp PCP - General Family Medicine 03/10/20 11/30/21 documented as of this encounter
--- OUTSIDE RECORDS SUMMARY | 2022-02-16 12:33 | XMS_ITS | Encounter Summary ---
:1990 Author Organization [facility] Address [address] [place] [address] Care Team Providers Name Role Phone Elsewhere, [...] you attend episcopalian or Patient refused 2021 jew services? 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 [address] [place] [address] [phone] Appointment Gastroenterology and Adrianne, 2 Hepatology Yue Burciaga M.D. [address] [place] [phone] Virtual Visit Transplant LuisNew abdular 2 Tyrell Rodriguez M.D. [address] [place] [phone] Office Visit Gastroenterology and Queenie Matthew 2 Hepatology Tyrell Rodriguez M.D. [address] [place] [address] [phone] Appointment Radiology Matthew Jerome 2 YTyrell M.D. [address] [place] [phone] Hospital Gastroenterology and QueenieMatthew Cirrhos is Alcoholic (HCC) 2 Encounter Hepatology Vik RodriguezBLilian Bedolla [address] [place] [address] [phone] Anesthesia Event Gastroenterology and Rl, 2 Hepatology Ervin Burgos M.D. [address] [place] [address] [phone] Surgery Gastroenterology and Mousa, Matthew ESOPHAG OGASTRODUODENOSCOPY 2 Hepatology Tyrell Rodriguez M.D. [address] [place] [address] [phone] Scheduled Procedures Name Priority Associated Diagnoses Date/Time ESOPHAGOGASTRODUODENOSCOPY Cirrhosis Alc oholic (HCC) 03/20/2022 8:45 AM TECHNOLOGY TRAINING ASSOCIATE Hypertension Portal (HCC) documented as of this encounter Procedures Procedure Name Priority Date/Time Associated Diagnosis Comme nts GENERAL SURGERY Routine 03/12/2021 11:00 AM Resul ts for this IMAGE EXAM TECHNOLOGY TRAINING ASSOCIATE procedure are i n the results section. documented in this encounter Results Non-Radiology Image-General Surgery Image Exam (03/12/2021 11:00 AM TECHNOLOGY TRAINING ASSOCIATE) Specimen (Source) Anatomical Location Collection Method / Collectio n Time Received Time / Laterality Volume Narrative IIMS - 03/13/2021 6:34 PM TECHNOLOGY TRAINING ASSOCIATE This order has been created and auto-finalized [...] COVID19 Pending 03/12/2021 03/12/2021 03/12/2021 7:32 PM TECHNOLOGY TRAINING ASSOCIATE documented as of this encounter Care Teams Machine Tack Puller Relationship Specialty Start Date End Date Elsewhere, Pcp PCP - General Family Medicine 03/10/20 11/30/21 documented as of this encounter
--- OUTSIDE RECORDS SUMMARY | 2022-02-16 12:34 | XMS_ITS | Encounter Summary ---
:1990 Author Organization [address] [address] Phone Care Team Providers Name Role Phone Unavailable Primary Care Provider Unavailable Encounter Details Date Type Department Care Team Description 07/15/2021 Nurse Triage [facility] [place] [facility] Cary Segura, RN [address] [place] [address] Social History Tobacco Use Types Packs/Day Years Used Date Smoking Tobacco: Never Assessed Sex Assigned at Date Recorded Not on file COVID-19 Exposure Response Date Recorded In the last 10 days, have you been in contact with No / Unsu re 07/08/2021 9:38 AM 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 documented as of this encounter Miscellaneous Notes Telephone Encounter - Cary Segura RN - 07/15/2021 9:06 AM CDT D: Telephone call received from patient questioning why she was not give blood when she was transferred to [facility]. A: Spoke with caller and [...]
--- OUTSIDE RECORDS SUMMARY | 2022-02-16 12:34 | XMS_ITS | Encounter Summary ---
:1990 Author Organization [facility] [place] Address [address] [facility] [place] [address] Phone Care Team Providers Name Role Phone Unavailable Primary Care Provider Unavailable Reason for Visit Reason Comments Abdominal Pain Encounter Details Date Type Department Care Team Description 07/08/2021 Emergency [facility] [place] Daniel Doe, Ascites due to Department alcoholic hepatitis [address] [facility] [address] [facility] [address] [place], [place] [phone] Social History Tobacco Use Types Packs/Day Years Used Date Smoking Tobacco: Never Assessed Sex Assigned at Date Recorded Not on file COVID-19 Exposure Response Date Recorded In the last 10 days, have you been in contact with No / Unsu re 07/08/2021 9:38 AM PROPOSAL LEAD WRITER someone who was confirmed or suspected to have Coronavirus/COVID-19? documented as of this encounter Last Filed Vital Signs Vital Sign Reading Time Taken Comments Blood Pressure 114/67 07/08/2021 4:03 PM PROPOSAL LEAD WRITER Pulse 82 07/08/2021 4:03 PM PROPOSAL LEAD WRITER Temperature 36.9 ??C (98.5 ??F) 07/08/2021 6:31 AM PROPOSAL LEAD WRITER Respiratory Rate 16 07/08/2021 4:03 PM PROPOSAL LEAD WRITER Oxygen Saturation 98% 07/08/2021 4:03 PM PROPOSAL LEAD WRITER Inhaled Oxygen Concentration - - Weight - [...] was a pleasure caring for you today! OSAL LEAD WRITER AttachmentsThe following attachments cannot be sent through Care Everywhere. Fluid in the Belly (Ascites) Discharge Instructions (East Timorese)documented in this encounter Medications at Time of [...] of alcoholic cirrhosis who was transferred to [facility] on 07/08/21 from [place] [facility] with pain and altered mental status. [...] who has known her for many years. LAMP TESTER AND INSPECTOR shows that she most recently filled this on 06/19/21. Patient would also strongly prefer that we prescribe her something for insomnia (something other than melatonin). Do not plan on prescribing pharmacotherapyfor insomnia at this time consider recent altered mental status and complexity of her medical history. Recommended she discuss this further with her PCP and/or almond cutting machine tender. ?? Ervin Childs MD, 07/08/2021 4:19 PM [...] doesn't usually do. She usually lives in [facility] with her boyfriend. Patient stated [...] who has known her for many years. LAMP TESTER AND INSPECTOR shows that she most recently filled [...] Psychosocial History: Lives with her boyfriend in [place], [place]. Denies alcohol use. Denies illicit drug [...] ?? Ervin Childs MD 07/08/2021 15:54 ?? 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 Patient reports [...] 07/08/2021 2:57 PM Emergency Medicine Resident PGY-1 OSAL LEAD WRITER Grazyna Delgadillo RN - 07/08/2021 1:19 PM CST Initial Utilization review screening completed. Patient appears to be appropriate for INPATIENT based on ammonia 110 I spoke with provider regarding inpt vs obs, advising obs appropriate, order to remain obs Final order/decision will be based upon provider's assessment of patient. Grazyna Delgadillo ED RN Clinical Coordinator Pager: [phone] [employer] OSAL LEAD WRITER Evon Claros RN - 07/08/2021 1:07 PM CST ED to IP Nursing Handoff Note S (Situation) Reason for Admission: 1. Ascites due to alcoholic hepatitis [facility] Prec[facility]/Isolation: Standard Suspected Infection/Sepsis: No Restraints: [...] NA RN: Evon Claros RN Extension #: [id number] OSAL LEAD WRITER Daniel Ambrocio - 07/08/2021 12:04 PM CST Parris Knight, patient's mother, would like an update of her daughters condition. Daniel Guerrero MD - 07/08/2021 7:33 AM CST ED Faculty Attestation and Note Catia Carias 30 y.o. female [id number] FACULTY ATTESTATION I Hiro Doe MD, performed [...] the hospitalist. Their care was signed out [id number] with the oncoming provider Dr. Lindsay. Final Clinical Impression Abdominal pain, unclear etiology Disposition and Plan Final disposition to be determined by oncoming provider Currently planning for admission [facility] Jessica Moyer MD, 07/08/2021 7:13 AM Emergency Medicine Resident PGY-1 OSAL LEAD WRITER Analilia Espitia RN - 07/08/2021 7:09 AM CST Pt transferred here from [facility] due to liver failure. Pt has been to multiple EDs in the last few days after running out of pain medication. 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 ULT GALLBLADDER Routine 07/08/2021 12:13 Results for this PM PROPOSAL LEAD WRITER procedure are i n the results section. ED US STAT 07/08/2021 10:30 Results for this ABDOMINAL/GALLBLADDER AM PROPOSAL LEAD WRITER proced ure are in the results section. EXTRA TUBE - LAVENDER Routine 07/08/2021 7:28 AM Results for this PROPOSAL LEAD WRITER procedure are i n the results section. PC FREE STANDING Routine 07/08/2021 7:28 AM Resul ts for this BLOOD DRAW BY PROPOSAL LEAD WRITER procedure are in VENIPUNCTURE the results section. PC FREE STANDING Routine 07/08/2021 7:28 AM Resul ts for this BLOOD DRAW BY PROPOSAL LEAD WRITER procedure are in VENIPUNCTURE the results section. PC ELECTROLYTES PANEL STAT 07/08/2021 7:27 AM Results for this PROPOSAL LEAD WRITER procedure are i n the results section. TC LAB ER STAT STAT 07/08/2021 7:27 AM Results for this URINALYSIS PROPOSAL LEAD WRITER procedure are i n the results section. PROTHROMBIN (PT) & STAT 07/08/2021 7:27 AM Res ults for this INR PROPOSAL LEAD WRITER procedure are i n the results section. PC LAB TEST Routine 07/08/2021 7:27 AM Results for this PROPOSAL LEAD WRITER procedure are i n the results section. PC AMMONIA STAT 07/08/2021 7:27 AM Results f or this PROPOSAL LEAD WRITER procedure are i n the results section. LIPASE STAT 07/08/2021 7:27 AM Results f or this PROPOSAL LEAD WRITER procedure are i n the results section. PANEL HEPATIC STAT 07/08/2021 7:27 AM Results for this FUNCTION PROPOSAL LEAD WRITER procedure are i n the results section. documented in this encounter Results COVID-19 SURVEILLANCE (07/08/2021 1:32 PM PROPOSAL LEAD WRITER) [facility] Method Time Signature COVID-19 Not Detected Not Detected [facility] Comment: This test was developed and its performa nce characteristics determined by [employer]. This testing, RT-PCR, has been authorized by [...] Laterality Nasopharyngeal Swab 07/08/2021 1:32 07/08 PM PROPOSAL LEAD WRITER 1:40 PM PROPOSAL LEAD WRITER Narrative [facility] - 07/08/2021 2:11 PM PROPOSAL LEAD WRITER Is the patient a healthcare employee: No Is the patient a [place] ([facility]) Employee : No Daniel Doe MD LABORATORY Performing Organization Address City/State/ZIP Code Phon e Number [facility] [place] [address] GALLBLADDER (07/08/2021 12:13 PM PROPOSAL LEAD WRITER) Anatomical Region Laterality Modality Abdomen Ultrasound Specimen (Source) Anatomical Collection Method Collection Time Re ceived Time Location / / Volume Laterality 07/08/2021 12:53 PM PROPOSAL LEAD WRITER Impressions 07/08/2021 1:17 PM PROPOSAL LEAD WRITER Impression: Biliary sludge without shadowing gallstones. No sonographic findings to suggest acute cholecystitis. I have personally reviewed the image(s) and initial interpretation, and I agree with the findings as documented by the resident/fellow. Reading Radiologist: Daron Mccurdy Reading Resident: Gerard Webb Narrative 07/08/2021 1:17 PM PROPOSAL LEAD WRITER Indication: sludge on ED u/s, chronic abd [...] ULT ED US ABDOMINAL/GALLBLADDER (07/08/2021 10:30 AM PROPOSAL LEAD WRITER) Anatomical Region Laterality Modality Ultrasound Specimen (Source) Anatomical Location Collection Method / Collectio n Time Received Time / Laterality Volume Narrative 07/08/2021 1:12 PM PROPOSAL LEAD WRITER ED Abdomen/Gallbladder Ultrasound Indications: Abdominal pain Window: [...] CBC WITH PLTS/AUTO DIFF (07/08/2021 7:28 AM PROPOSAL LEAD WRITER) [facility] Method Time Signature WBC 5.29 4.00 - [facility] 10.00 k/cmm RBC 1.93 (L) 3.90 - [facility] 5.20 m/cmm Hgb 7.0 (AA) 11.5 - [facility] 15.7 g/dL Hematocrit 21.2 (L) 34.0 - [facility] 45.0 % MCV 109.8 (H) 80.0 - [facility] 100.0 fL MCH 36.3 (H) 25.0 - [facility] 32.0 pg MCHC 33.0 31.0 - [facility] 36.0 g/dL RDW 13.7 11.5 - [facility] 14.5 % Plt 74 (L) 150 - 400 [facility] k/cmm MPV 9.7 6.5 - 12.5 [facility] fL Automated Abs 3.54 1.70 - [facility] Neutrophil 6.50 k/cmm Comment: Preliminary ANC, Final Result t o Follow Abs Immature Granulocyte 0.01 0.00 - 0.09 k/cmm [facility] Comment: The Immature Granulocyte Absolu te count contains metamyelocytes and myelocytes. Abs Neutrophil 3.54 1.70 - 6.50 k/cmm [facility] B Abs Lymphocyte 1.21 0.80 - 4.00 k/cmm [facility] B Abs Monocyte 0.40 0.20 - 1.00 k/cmm [facility] Abs Eosinophil 0.10 0.00 - 0.60 k/cmm [facility] B Abs Basophil 0.03 0.00 - 0.20 k/cmm [facility] Orin Cell Slight [facility] Specimen Anatomical Collection Method Collection Time Receive d Time (Source) Location / / Volume Laterality Blood 07/08/2021 7:28 AM 9:32 PROPOSAL LEAD WRITER AM PROPOSAL LEAD WRITER Narrative [facility] - 07/08/2021 10:29 AM PROPOSAL LEAD WRITER Critical value for Hgb called to and julisa d back by Charly Bowman RN in ER A at 07/08/2021 10:29:44 PROPOSAL LEAD WRITER by Ines Bal Lance . Daniel Doe MD LABORATORY Performing Organization Address City/State/ZIP Code Phon e Number [facility] [place] [address] [place] [address] [place] [address] EXTRA TUBE - LAVENDER (07/08/2021 7:28 AM PROPOSAL LEAD WRITER) athologist Signature LAVENDER TUBE Stored [facility] Comment: Lavendar (EDTA) tubes collected at [facility] are stored for 3 days from the collection date. Specimen Anatomical Collection Method Collection Time Receive d Time (Source) Location / / Volume Laterality Blood 07/08/2021 7:28 AM 2 7:35 PROPOSAL LEAD WRITER AM PROPOSAL LEAD WRITER Narrative [facility] - 07/08/2021 7:35 AM PROPOSAL LEAD WRITER Ordered by ~[id number] Provider Unknown LABORATORY Performing Organization Address City/[facility]/ZIP Code Phon e Number [facility] [place] [address] EXTRA TUBE - SST (07/08/2021 7:28 AM PROPOSAL LEAD WRITER) athologist Signature SST TUBE Stored [facility] Comment: SST tubes (Serum Separator) are stored in the lab for 3 days from the collection date. Specimen Anatomical Collection Method Collection Time Receive d Time (Source) Location / / Volume Laterality Blood 07/08/2021 7:28 AM 2 7:35 PROPOSAL LEAD WRITER AM PROPOSAL LEAD WRITER Narrative [facility] - 07/08/2021 7:35 AM PROPOSAL LEAD WRITER Ordered by ~[id number] Provider Unknown LABORATORY Performing Organization Address [facility] Phon e Number [facility] [place] [address] TEST URINE (07/08/2021 7:27 AM PROPOSAL LEAD WRITER) athologist Signature Ur Negative Negative [facility] UPT performed [facility] at Comment: Test performed by: [facility] Clinical Laboratory [id number] [place] [address] Specimen Anatomical Collection Method Collection Time Receive d Time (Source) Location / / Volume Laterality Urine 07/08/2021 7:27 AM 2 PROPOSAL LEAD WRITER 10:53 AM PROPOSAL LEAD WRITER Daniel Doe MD LABORATORY Performing Organization Address City/[facility]/ZIP [facility] Phon e Number [facility] [place] [address] (ABNORMAL) URINALYSIS,TOTAL (07/08/2021 7:27 AM PROPOSAL LEAD WRITER) [facility] gist Method Time Signature Color YELLOW YELLOW [facility] Appearance CLEAR CLEAR [facility] Urine Glucose NEGATIVE NEGATIVE [facility] mg/dL Bili UA TRACE (A) NEGATIVE [facility] Ketones NEGATIVE NEGATIVE [facility] mg/dL Specific [place] 1.024 1.003 - [facility] 1.030 Blood Ur NEGATIVE Neg-Trace [facility] PH Urine 6.5 5.0 - 7.0 [facility] Protein Ur TRACE Neg-Trace [facility] mg/dL Urobilinogen NORMAL NORMAL EU/dL [facility] Nitrite Ur NEGATIVE NEGATIVE [facility] Leuk Est NEGATIVE Neg-Trace [facility] WBC Ur 0-5 0 - 5 perHPF [facility] RBC Ur 0-3 0 - 3 perHPF [facility] SQ EPITH 0-5 0 - 5 perHPF [facility] Mucus 1+ perLPF [facility] Urinalysis [facility] Performed at: Specimen Anatomical Collection Method Collection Time Receive d Time (Source) Location / / Volume Laterality Urine 07/08/2021 7:27 AM 2 8:09 PROPOSAL LEAD WRITER AM PROPOSAL LEAD WRITER Karina Israel MD LABORATORY Performing Organization Address City/[facility] Phon e Number [facility] [place] [address] (ABNORMAL) PROTHROMBIN (PT) & INR (07/08/2021 7:27 AM PROPOSAL LEAD WRITER) P athologist Signature PT 39.2 (H) 9.0 - 12.5 [facility] sec INR 3.3 (H) 0.8 - 1.1 [facility] Specimen Anatomical Collection Method Collection Time Receive d Time (Source) Location / / Volume Laterality Blood 07/08/2021 7:27 AM 2 7:47 PROPOSAL LEAD WRITER AM PROPOSAL LEAD WRITER Karina Israel MD LABORATORY Performing Organization Address City/[facility] Phon e Number [facility] [place] [address] (ABNORMAL) AMMONIA (07/08/2021 7:27 AM PROPOSAL LEAD WRITER) P athologist Signature Ammonia 110 (H) 11 - 51 [facility] mcmol/L Specimen Anatomical Collection Method Collection Time Receive d Time (Source) Location / / Volume Laterality Blood 07/08/2021 7:27 AM 2 7:53 PROPOSAL LEAD WRITER AM PROPOSAL LEAD WRITER Narrative [facility] - 07/08/2021 8:18 AM PROPOSAL LEAD WRITER Send specimen on ice! Karina Israel MD LABORATORY Performing Organization Address City/State/ZIP Code [place] [address] LIPASE (07/08/2021 7:27 AM PROPOSAL LEAD WRITER) P athologist Signature Lipase 14 13 - 60 IU/L [facility] Specimen Anatomical Collection Method Collection Time Receive d Time (Source) Location / / Volume Laterality Blood 07/08/2021 7:27 AM 7:47 PROPOSAL LEAD WRITER AM PROPOSAL LEAD WRITER Karina Israel MD LABORATORY Performing Organization Address City/State/ZIP Code [place] [address] (ABNORMAL) PANEL HEPATIC FUNCTION (07/08/2021 7:27 AM PROPOSAL LEAD WRITER) P athologist Signature Total Protein 5.3 (L) 6.4 - 8.3 [facility] g/dL Albumin 3.0 (L) 3.8 - 5.1 [facility] g/dL Bili Total 7.1 (H) 0.1 - 1.2 [facility] mg/dL Bili Direct 2.8 (H) 0.0 - 0.3 [facility] mg/dL Alk Phos 150 (H) 35 - 104 [facility] IU/L ALT (SGPT) 18 <=33 IU/L [facility] AST(SGOT) 47 (H) 5 - 40 [facility] IU/L Specimen Anatomical Collection Method Collection Time Receive d Time (Source) Location / / Volume Laterality Blood 07/08/2021 7:27 AM 7:47 PROPOSAL LEAD WRITER AM PROPOSAL LEAD WRITER Karina Israel MD LABORATORY Performing Organization Address City/State/ZIP Code [place] [address] (ABNORMAL) ED CHEMISTRY LABS(NA,K,CL,CO2,GLU,CREAT,CA-IONIZED,ANION GAP) (07/08/2021 7:27 AM PROPOSAL LEAD WRITER) Analysis Performed At Patho logist Time Signature Sodium 140 135 - 148 [facility] mEq/L Chloride 111 (H) 92 - 108 [facility] mEq/L AnGap 7 (L) 8 - 16 [facility] mEq/L Glucose 83 70 - 100 [facility] mg/dL ICA, Actual 4.34 (L) 4.40 - [facility] 5.20 mg/dL ICA, pH 4.51 4.40 - [facility] Corrected 5.20 mg/dL Creatinine 0.67 0.50 - [facility] 1.00 mg/dL BICARB 22 22 - 26 [facility] mEq/L eGFR, High >120 >=60 [facility] ml/min/1.7 3m2 Comment: Calculated using CKD-EPI equati on eGFR, Low 118 >=60 ml/min/1.73m2 [facility] Comment: Calculated using CKD-EPI equati on Potassium 4.0 3.5 - 5.3 mEq/L [facility] Specimen Anatomical Collection Method Collection Time Receive d Time (Source) Location / / Volume Laterality Blood 07/08/2021 7:27 AM 7:36 PROPOSAL LEAD WRITER AM PROPOSAL LEAD WRITER Karina Israel MD LABORATORY Performing Organization Address City/State/ZIP Code Phon e Number [facility] [place] [address] documented in this encounter Visit Diagnoses Diagnosis Ascites due to alcoholic hepatitis - [facility] documented in this encounter Administered Medications Inactive Administered Medications - up to 3 most recent administrations Medication Order MAR Action Action Date Dose Rate Site cefTRIAXone (ROCEPHIN) 1 g in New Bag 07/08/2021 1:32 PM PROPOSAL LEAD WRITER 1 g 200 mL/hr NaCl 0.9% 100 mL IVPB 1 g, Indication (Select One): Infection - Suspected, SITE (Select all that apply): GI/Intra-abdominal, Cultures Ordered? No, Intravenous, ONE TIME, 1 dose, On Wed07/08/21 at 1305 HYDROmorphone PF (DILAUDID) 1 mg/mL injection Given 4:43 PM PROPOSAL LEAD WRITER 0.5 mg 0.5 mg 0.5 mg, IV Push, ONE TIME, 1 dose, On Wed07/08/21 at 1640 lactulose (KRISTALOSE) package 20 g Given 07/08/2021 3:33 PM PROPOSAL LEAD WRITER 20 g 20 g, Oral, TID, First dose on 3/8/22 at 1450, Until Discontinued oxyCODONE (ROXICODONE) tablet 5 mg Given 07/08/2021 10:39 AM PROPOSAL LEAD WRITER 5 mg 5 mg, Oral, ONE TIME, 1 dose, On Wed07/08/21 at 1030 documented in this encounter Active and Recently Administered Medications Times are shown in PROPOSAL LEAD WRITER. Scheduled Medication Order 07/06/2021 07/07/2021 07/08/2021 cefTRIAXone [...] (CANCELED) 1533 (Given - Provider: Evon Claros RN)1999 (Canceled Entry - Provider: Evon Claros RN - Comment: discharged) 20 g, Oral, TID, First dose on Wed07/08/21 at 1450, Until Discont inued oxyCODONE (ROXICODONE) tablet 5 mg (COMPLETED) 1039 (Given - Provider: Grazyna Wisdom RN) 5 mg, Oral, ONE TIME, 1 dose, On Wed07/08/21 at 1030 documented in this encounter
--- OUTSIDE RECORDS SUMMARY | 2022-02-16 12:34 | XMS_ITS | Clinical Summary ---
:1990 Author Organization [employer] Address [address] [place] [address] Phone Care Team Providers Name Role Phone Unavailable Primary Care Provider Unavailable Source Comments [employer] is fully rolled out on [employer]. Last update 10/05/08.[employer] Allergies Active Allergy Reactions Severity Noted Date [...] Comments Blood Pressure 114/67 07/08/2021 4:03 PM ASSESSMENT COUNSELOR Pulse 82 07/08/2021 4:03 PM ASSESSMENT COUNSELOR Temperature 36.9 ??C (98.5 ??F) 07/08/2021 6:31 AM ASSESSMENT COUNSELOR Respiratory Rate 16 07/08/2021 4:03 PM ASSESSMENT COUNSELOR Oxygen Saturation 98% 07/08/2021 4:03 PM ASSESSMENT COUNSELOR Inhaled Oxygen Concentration - - Weight - [...] Type / Group BLUE CROSS BCBS BLUE [id number] 2018-Sung [address] [address] [place]EL[place] Managed [facility] [place] [address] (Home) [address] [place] [address]
--- OUTSIDE RECORDS SUMMARY | 2022-02-16 12:34 | XMS_ITS | Clinical Summary ---
:1990 Author Organization [facility] Address [address] [place] [address] Care Team Providers Name Role Phone Clinic, [facility] Primary Care Provider [facility], [facility] Unavailable [phone] Allergies Active Allergy Reactions Severity Noted Date [...] Addre ss Type Group BLUE CROSS BCBS [facility] [id number] 2018-Present [phone] [address] [address] [place] [address] Catia Carias Personal/Family Self 1990 [address] (Home) [address] [place] [address] Advance Directives For more information, please contact: [phone] Latest Code Status on File Code Status Date Activated Date Inactivated Comments Full Code 09/30/2018 4:42 AM 10/02/2018 6:07 PM How was code status determined? Patient Care Teams Standpipe Tender Relationship Specialty Start Date End Date [facility] PCP - General 09/30/18 [place] [address] [place] [phone] [facility] PCP - Primary Care Clinic [address] [place] [address] [place] [phone]
--- OUTSIDE RECORDS SUMMARY | 2022-02-16 12:34 | XMS_ITS | Clinical Summary ---
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 Added automatically from request for dolly daley [id number] Thrombocytopenia 07/01/2021 Alcoholic cirrhosis 03/12/2021 Acute respiratory [...] signed 01/12/2017 Overview: Signed: 07/05/12-Kiana Pino APRN, BACTERIOLOGY TECHNICIAN - p sychiatry Anxiety disorder; NOS; APPLE and Panic Disorder Symptoms 01/19/2012 Attention deficit disorder without mention of hyperact ivity 06/30/2007 Iron deficiency anemia 03/06/2007 seasonal allergies 04/06/2006 Drug abuse, marijuana Resolved Problems Problem Noted Date Resolved Date Abnormal LFTs 01/23/2021 08/26/2021 MOHSE (acute kidney injury) 04/15/2019 08/26/2021 Closed fracture [...] 139 POTASSIUM 3.7 3.9 CHLORIDE 103 108 [id number] 25 22 BUN 7 L 8 CREATININE [...] Component Value U nits Date/Time COVID 19 [[id number]] (Norm al) Collected: 02/08/22722 Lab Status: Final [...] medical emergency. [facility]? The reason(s) you were in [facility] is/are hepatic encephalopathy (your liver not [...] and examined today. Dominick Hickey DO Hospitalist, [facility] ? ? [phone] Cc: Matthew Jerome MD ([facility]) 02/08/2022 Travel 01/16/2022 Emergency Maye Gilliland, [...] lb 8 ral oz) Comments: adopted out, [place] couple. patient did meet couple. Last Filed [...] 2013 18-79 Medical Devices Implanted Type Area Manager Port Device Shelf Model / Identifier Expiration Serial / Date Lot Partially Threaded Screws Left: [place] [id number] / Implanted: Qty: 1 on 08/29/2018 by Omar Montesinos MD at [facility] [employer] / Description: From [facility] briana tray Explanted Type Area Manager Port Device Shelf Model / Identifier Expiration Serial / Date Lot 2.7mm Locking Screw Left: [place] [id number] / Explanted: Qty: 1 on 08/29/2018 by Omar Montesinos MD at [facility] [employer] / Description: From [facility] briana tray Distal Medial Humerus Plates Left: Elbow [place] [id number] / Implanted: Qty: 1 on 08/29/2018 by Omar Montesinos MD at [facility] / Explanted: Qty: 1 on 06/27/2019 by Omar Montesinos MD at [facility] Description: Loaner from [employer] elbow ad d [...] 02/09 8:07 Unknown CDT AM CDT [facility] DO CHEMISTRY Performing Organization Address [facility] Phon e Number [facility] [address] [place] [address] (ABNORMAL) AMMONIA (02/09/2022 6:00 AM CDT)Only the most recent of2 results within the time period is included. P athologist Signature AMMONIA 95 (H) 11 - 35 02/09/2022 [place] umol/L 6:15 AM T [facility] Comment: 1. ??Sulfasalazine and its [...] Unknown Unknown CDT AM CDT Dominick Bucio [facility] DO CHEMISTRY Performing Organization Address [facility] Phon e Number [facility] [address] [place] [address] (ABNORMAL) CBC WITH AUTO DIFFERENTIAL (02/09/2022 5:59 AM CDT) Patholo gist Method Time Signature WHITE BLOOD 5.6 4.5 - 02/09/2022 [place] COUNT 11.0 6:07 AM T [facility] CENTER thou/cu LABORATORY mm RED BLOOD COUNT 2.59 (L) 4.00 - 02/09/2022 [place] 5.20 6:07 AM [facility] mil/cu mm LABORATORY HEMOGLOBIN 8.8 (L) 12.0 - 02/09/2022 [place] 16.0 g/dL 6:07 AM [facility] LABORATORY HEMATOCRIT 26.5 (L) 33.0 - 02/09/2022 [place] 51.0 % 6:07 AM [facility] LABORATORY MCV 102 (H) 80 - 100 02/09/2022 [place] fL 6:07 AM [facility] LABORATORY MCH 34.0 26.0 - 02/09/2022 [place] 34.0 pg 6:07 AM [facility] LABORATORY MCHC 33.2 32.0 - 02/09/2022 [place] 36.0 g/dL 6:07 AM [facility] LABORATORY RDW 23.2 (H) 11.5 - 02/09/2022 [place] 15.5 % 6:07 AM [facility] LABORATORY PLATELET COUNT 51 (L) 140 - 440 02/09/2022 [place] thou/cu 6:07 AM [facility] mm LABORATORY MPV 9.8 6.5 - 02/09/2022 [place] 11.0 fL 6:07 AM [facility] LABORATORY % NEUT 72.8 % 02/09/2022 [place] 6:07 AM [facility] LABORATORY % LYMPH 16.7 % 02/09/2022 [place] 6:07 AM [facility] LABORATORY % MONO 8.3 % 02/09/2022 [place] 6:07 AM [facility] LABORATORY % EOS 1.8 % 02/09/2022 [place] 6:07 AM [facility] LABORATORY % BASO 0.4 % 02/09/2022 [place] 6:07 AM [facility] LABORATORY ABSOLUTE 4.1 1.7 - 7.0 02/09/2022 [place] NEUTROPHILS thou/cu 6:07 AM [facility] LABORATORY ABSOLUTE 0.9 0.9 - 2.9 02/09/2022 [place] LYMPHOCYTES thou/cu 6:07 AM [facility] LABORATORY ABSOLUTE 0.5 <0.9 02/09/2022 [place] MONOCYTES thou/cu 6:07 AM [facility] mm LABORATORY ABSOLUTE 0.1 <0.5 02/09/2022 [place] EOSINOPHILS thou/cu 6:07 AM [facility] mm LABORATORY ABSOLUTE 0.0 <0.3 02/09/2022 [place] BASOPHILS thou/cu 6:07 AM [facility] mm LABORATORY Specimen Anatomical Collection Method Collection Time Receive d Time (Source) Location / / Volume Laterality Blood BLOOD SPECIMEN / Butterfly / 02/09/2022 5:59 AM 02/09 6:02 Unknown Unknown [facility] Cat[facility] Castle MD HEMATOLOGY Performing Organization Address City/State/ZIP Code Phon e Number [facility] [address] [place] [address] IRON PLUS IRON BINDING CAP (02/09/2022 5:59 AM CDT) athologist Signature IRON 126 25 - 156 02/09/2022 [facility] ug/dL 5:33 PM CDT LABORATORY-[facility] LABORATORY UIBC <41 02/09/2022 [facility] (UNSATURATED) 5:33 PM CDT LAB[facility]ATORY-[facility] IRON BINDING 02/09/2022 [facility] CAPACITY 5:33 PM CDT LABORATORY-[facility] Comment: Results below measurement [...] [facility] [address] [place] [address] LABORATORY-CENTRAL 2000 LABORATORY (ABNORMAL) PROTIME-INR (02/09/2022 5:59 AM CDT)Only the most recent of2 results within the time period is included. athologist Signature INR 2.9 (H) <1.3 [facility] AM [facility] LAB[facility]ATORY PROTIME 29.1 (H) 12.0 - 13.8 02/09/2022 [place] sec 6:12 AM CDT [facility] LABORATORY Specimen Anatomical Collection Method Collection Time Receive d Time (Source) Location / / Volume Laterality Blood BLOOD SPECIMEN / Butterfly / 02/09/2022 5:59 AM 02/09 6:02 Unknown Unknown CDT AM CDT Narrative [facility] - 6:12 AM CDT ?Therapeutic [...] Catia Castle MD HEMATOLOGY Performing Organization Address [facility]/ZIP Code Phon e Number [facility] [address] [place] [address] (ABNORMAL) HAPTOGLOBIN (02/09/2022 5:59 AM CDT) athologist Signature Haptoglobin <8 (L) 30 - 215 02/09/2022 [facility] mg/dL 7:00 PM CDT LABORATORY-CENT [facility] LAB[facility]ATORY Specimen Anatomical Collection Method Collection Time Receive d Time (Source) Location / / Volume Laterality Blood BLOOD SPECIMEN / Butterfly / 02/09/2022 5:59 AM 02/09 6:02 Unknown Unknown CDT AM CDT Catia Castle MD CHEMISTRY Performing Organization Address City/[facility]/ZIP Code Phon e Number [email or web address] [address] [place] [address] [place] [address] LABORATORY-CENTRAL 1999 LABORATORY (ABNORMAL) FERRITIN (02/09/2022 5:59 AM CDT) P athologist Signature FERRITIN 710.1 (H) 15.0 - 02/09/2022 [facility] 205.0 5:44 PM CDT LABORATORY-CENT ng/mL [facility] LAB[facility]ATORY Specimen Anatomical Collection Method Collection Time Receive d Time (Source) Location / / Volume Laterality Blood BLOOD SPECIMEN / Butterfly / 02/09/2022 5:59 AM 02/09 6:02 Unknown Unknown CDT AM CDT Catia Castle MD CHEMISTRY Performing Organization Address City/[facility]/ZIP Code Phon e Number [employer] [address] [address] LABORATORY-CENTRAL 1999 LABORATORY (ABNORMAL) HEPATIC FUNCTION PANEL (02/09/2022 5:59 AM CDT) Patholo gist Method Time Signature ALBUMIN 3.8 3.5 - 5.2 02/09/2022 [place] g/dL 6:35 AM [facility] LABORATORY PROTEIN,TOTAL 5.5 (L) 6.0 - 8.0 02/09/2022 [place] g/dL 6:35 AM [facility] LABORATORY GLOBULIN 1.7 (L) 2.0 - 3.7 02/09/2022 [place] g/dL 6:35 AM [facility] LABORATORY A/G RATIO 2.2 (H) 1.0 - 2.0 02/09/2022 [place] 6:35 AM [facility] LABORATORY BILIRUBIN,TOTAL 14.4 (H) 0.2 - 1.2 02/09/2022 [place] mg/dL 6:35 AM [facility] LABORATORY BILIRUBIN,DIRECT 5.4 (H) 0.1 - 0.5 02/09/2022 [place] mg/dL 6:35 AM [facility] LABORATORY BILIRUBIN,INDIRE 9.0 (H) 0.2 - 0.8 02/09/[address] [facility] mg/dL 6:35 AM [facility] LABORATORY ALK PHOSPHATASE 308 (H) 50 - 136 02/09/2022 [place] IU/L 6:35 AM [facility] LABORATORY ALT (SGPT) 25 8 - 45 02/09/2022 [facility] IU/L 6:35 AM [facility] LABORATORY AST (SGOT) 70 (H) 2 - 40 02/09/2022 [facility] IU/L 6:35 AM [facility] LABORATORY Specimen Anatomical Collection Method Collection Time Receive d Time (Source) Location / / Volume Laterality Blood BLOOD SPECIMEN / Butterfly / 02/09/2022 5:59 AM 02/09 6:02 Unknown Unknown CDT AM CDT Catia Castle MD CHEMISTRY Performing Organization Address City/State/ZIP Code Phon e Number [facility] [address] [place] [address] (ABNORMAL) BASIC METABOLIC PANEL (02/09/2022 5:59 AM CDT) Analysis Performed At Patho logist Time Signature SODIUM 136 135 - 145 02/09/2022 [place] mmol/L 6:24 AM [facility] LABORATORY POTASSIUM 3.7 3.5 - 5.0 02/09/2022 [place] mmol/L 6:24 AM [facility] LABORATORY CHLORIDE 103 98 - 110 02/09/2022 [place] mmol/L 6:24 AM [facility] LABORATORY CO2,TOTAL 25 21 - 31 02/09/2022 [place] mmol/L 6:24 AM [facility] LABORATORY ANION GAP 8 5 - 18 02/09/2022 [place] 6:24 AM [facility] LABORATORY GLUCOSE 150 (H) 65 - 100 02/09/2022 [place] mg/dL 6:24 AM [facility] LABORATORY CALCIUM 9.2 8.5 - 10.5 02/09/2022 [place] mg/dL 6:24 AM [facility] LABORATORY BUN 7 (L) 8 - 25 02/09/2022 [place] mg/dL 6:24 AM [facility] LABORATORY CREATININE 0.66 0.57 - 02/09/2022 [facility] 1.11 mg/dL 6:24 AM [facility] LABORATORY BUN/CREAT RATIO 11 10 - 20 02/09/2022 [facility] 6:24 AM [facility] LABORATORY eGFR >90 >90 02/09/2022 [place] mL/min/1.7 6:24 AM [facility] 3m2 LABORATORY Comment: As of 2021, eGFR [...] Organization Address City/State/ZIP Code Phon e Number [facility] [address] [place] [address] (ABNORMAL) HEMOGLOBIN (02/08/2022 12:33 PM CDT) athologist Signature HEMOGLOBIN 9.2 (L) 12.0 - 02/08/2022 [place] 16.0 g/dL 12:59 PM [facility] LABORATORY MCV 103 (H) 80 - 100 02/08/2022 [place] fL 12:59 PM [facility] LABORATORY Specimen Anatomical Collection Method Collection Time Receive d Time (Source) Location / / Volume Laterality Blood BLOOD SPECIMEN / Butterfly / 02/08/2022 12:33 022 Unknown Unknown PM CDT 12:39 PM CDT Catia Castle MD HEMATOLOGY Performing Organization Address City/[facility]/ZIP Code Phon e Number [facility] [address] [place] [address] URINALYSIS MICROSCOPIC (02/08/2022 11:04 AM CDT) athologist Signature RBC 0-2 0-2, None 02/08/2022 [place] Seen /HPF 11:21 AM [facility] LABORATORY WBC 0-2 0-2, 3-5, 02/08/2022 [place] None Seen 11:21 AM [facility] /HPF LABORATORY BACTERIA Few None Seen, 02/08/2022 [place] Rare, Few 11:21 AM [facility] Bacteria/H LABORATORY PF EPITHELIAL Few None Seen, 02/08/2022 [place] CELLS Few 11:21 AM [facility] Epi/HPF LABORATORY RENAL Few Few 02/08/2022 [place] EPITHELIAL 11:21 AM [facility] CELLS LABORATORY Specimen Anatomical Collection Method Collection Time Receive d Time (Source) Location / / Volume Laterality Urine URINE SPECIMEN / Non-Blood / 02/08/2022 11:04 022 Unknown Unknown AM CDT 11:12 AM CDT Gerard Cruz MD URINE Performing Organization Address City/[facility]/ZIP Code Phon e Number [facility] [address] [place] [address] (ABNORMAL) Urinalysis W Reflex Microscopic if Positive (02/08/2022 11:04 AM CDT) [facility] gist Method Time Signature COLOR Yellow Yellow Color 02/08/2022 [place] 11:21 AM [facility] LABORATORY CLARITY Clear Clear 02/08/2022 [place] Clarity 11:21 AM [facility] LAB[facility]ATORY SPECIFIC 1.015 1.010, 02/08/2022 [facility] GRAVITY,URINE 1.015, 11:21 AM MEDICAL 1.020, 1.025 [facility] LABORATORY PH,URINE 6.5 6.0, 7.0, 02/08/2022 [facility] 8.0, 5.5, 11:21 AM MEDICAL 6.5, 7.5, T CENTER 8.5 LABORATORY UROBILINOGEN, Normal Normal EU/dl 02/08/2022 [place] QUALITATIVE 11:21 AM [facility] LABORATORY PROTEIN, Negative Negative 02/08/2022 [place] URINE mg/dL 11:21 AM [facility] LAB[facility]ATORY GLUCOSE, Negative Negative 02/08/2022 [place] URINE mg/dL 11:21 AM [facility] LAB[facility]AT[facility] KETONES,URINE Negative Negative 02/08/2022 [facility] mg/dL 11:21 AM [facility] LAB[facility] BILIRUBIN,URI Abnormal (A) Negative 02/08/2022 [place] 11:21 AM [facility] LAB[facility] Comment: A variety of metabolites and/or medications may result in a positive bilirubin result. Clinical correlation i s recommended. OCCULT BLOOD,URINE Negative Negative 02/08/2022 11:21 AM [facility] LABORATORY NITRITE Negative Negative 02/08/2022 11:21 AM [facility] LABORATORY LEUKOCYTE ESTERASE Negative Negative 02/08/2022 11:21 AM [facility] LABORATORY Specimen Anatomical Collection Method Collection Time Receive d Time (Source) Location / / Volume Laterality Urine URINE SPECIMEN / Non-Blood / 02/08/2022 11:04 022 Unknown Unknown AM CDT 11:12 AM CDT Gerard Cruz MD URINE Performing Organization Address City/State/ZIP Code Phon e Number [facility] [address] [place] [address] TRANSFUSE RBC (NURSE COMMUNICATION ORDER) (02/08/2022 9:44 AM CDT) Specimen (Source) Anatomical Location Collection Method / Collectio n Time Received Time / Laterality Volume Blood BLOOD SPECIMEN / Unknown Gerard Cruz MD NURSING BLOOD BANK COVID 19 (02/08/2022 7:23 AM CDT) Analysis Performed At [facility] logist Time Signature COVID 19 Negative Negative 02/08/2022 [facility] 11:09 AM [facility] MOLECULAR LABORATORY Comment: All PCR tests are [...] CDT AM CDT STRUCTURE / Unknown Narrative [facility] - 11:09 AM CDT This [...] Gerard Cruz MD MICROBIOLOGY Performing Organization Address [facility] LABORATORY [address] [place] [address] COVID 19 COLLECTION (02/08/2022 7:23 AM CDT) [facility] gist Method Time Signature TESTING [facility] 02/08/2022 [place] LABORATORY Laboratory 7:44 AM [facility] LABORATORY Comment: Specimen submitted to [facility] for testing. Specimen Anatomical Location / Collection Method Collection Hiro e Received Time (Source) Laterality / Volume Other SPECIMEN FROM Non-Blood / 02/08/2022 7:23 02/08/2022 7:38 NASOPHARYNGEAL Unknown AM CDT AM CDT STRUCTURE / Unknown Gerard Cruz MD SEND OUTS Performing Organization Address [facility] e [facility] LABORATORY [address] [place] [address] RED BLOOD CELLS EA UNIT (02/08/2022 6:56 AM CDT) [facility] Time Signature CROSSMATCH Compatible Compatible [facility] BLOOD BANK PRODUCT BLOOD B Rh Positive [facility] BLOOD BANK PRODUCT ID [id number] [facility] LABORATORY BLOOD BANK PRODUCT STATUS Transfused [facility] BLOOD BANK PRODUCT RBC -1 LR [facility] LABORATORY BLOOD BANK PRODUCT CODE [id number] [facility] BLOOD BANK ISSUE 02/08/22 [facility] DATE/TIME 07:49 [facility] LABORATORY BLOOD BANK Specimen (Source) Anatomical Location Collection Method / Collectio n Time Received Time / Laterality Volume Gerard Cruz MD BLOOD BANK Performing Organization Address [facility] Code Phon e Number [facility] [address] [place] [address] BLOOD BANK (ABNORMAL) RED CELL MORPHOLOGY (02/08/2022 5:23 AM CDT) [facility] Signature ACANTHOCYTES Many 02/08/2022 [place] 6:11 AM CDT [facility] LAB[facility]ORY POLYCHROMASIA Slight 02/08/2022 [facility] 6:11 AM [facility] LABORATORY SCHISTOCYTES Few 02/08/2022 [facility] 6:11 AM T [facility] LABORATORY RBC COMMENT Present (A) RBC 02/08/2022 [facility] morphology 6:11 AM [facility] CENTER normal, RBC LABORATORY morphology within normal limits for newborns. Specimen Anatomical Collection Method Collection Time Receive d Time (Source) Location / / Volume Laterality Blood BLOOD SPECIMEN / Butterfly / 02/08/2022 5:23 AM 02/08 5:46 Unknown Unknown CDT AM CDT Gerard Cruz MD HEMATOLOGY Performing Organization Address City/[facility]/ZIP Code Phon e Number [facility] [address] [place] [address] (ABNORMAL) PLATELET ESTIMATE (02/08/2022 5:23 AM CDT) [facility] Signature PLATELET Decreased (A) Adequate, No 02/08/2022 [facility] ESTIMATE estimate 6:11 AM [facility] LABORATORY Specimen Anatomical Collection Method Collection Time Receive d Time (Source) Location / / Volume Laterality Blood BLOOD SPECIMEN / Butterfly / 02/08/2022 5:23 AM 02/08 5:46 Unknown Unknown CDT AM CDT Gerard Cruz MD HEMATOLOGY Performing Organization Address City/State/ZIP Code Phon e Number [facility] [address] [place] [address] (ABNORMAL) CBC w PLT no Diff (02/08/2022 5:23 AM CDT) [facility] Method Time Signature WHITE BLOOD 4.5 4.5 - 11.0 02/08/2022 [place] COUNT thou/cu mm 6:13 AM [facility] LABORATORY RED BLOOD COUNT 1.96 (L) 4.00 - 02/08/2022 [place] 5.20 6:13 AM [facility] mil/cu mm LABORATORY HEMOGLOBIN 6.9 (LL) 12.0 - 02/08/2022 [place] 16.0 g/dL 6:13 AM [facility] LABORATORY HEMATOCRIT 20.8 (L) 33.0 - 02/08/2022 [place] 51.0 % 6:13 AM [facility] LABORATORY MCV 106 (H) 80 - 100 02/08/2022 [facility] fL 6:13 AM [facility] LABORATORY MCH 35.2 (H) 26.0 - 02/08/2022 [place] 34.0 pg 6:13 AM [facility] LABORATORY MCHC 33.2 32.0 - 02/08/2022 [place] 36.0 g/dL 6:13 AM [facility] LABORATORY RDW 21.8 (H) 11.5 - 02/08/2022 [place] 15.5 % 6:13 AM [facility] LABORATORY PLATELET COUNT 54 (L) 140 - 440 02/08/2022 [place] thou/cu mm 6:13 AM [facility] LABORATORY MPV 9.0 6.5 - 11.0 02/08/2022 [facility] fL 6:13 AM [facility] LABORATORY Specimen Anatomical Collection Method Collection Time Receive d Time (Source) Location / / Volume Laterality Blood BLOOD SPECIMEN / Butterfly / 02/08/2022 5:23 AM 02/08 5:46 Unknown Unknown CDT AM CDT Gerard Cruz MD HEMATOLOGY Performing Organization Address City/[facility]/ZIP Code Phon e Number [facility] [address] [place] [address] Ethanol Serum or Plasma (02/08/2022 5:23 AM CDT) athologist Signature ETHANOL <0.010 <0.010 g/dL 02/08/2022 [place] 6:12 AM CDT [facility] LABORATORY Specimen Anatomical Collection Method Collection Time Receive d Time (Source) Location / / Volume Laterality Blood BLOOD SPECIMEN / Butterfly / 02/08/2022 5:23 AM 02/08 5:46 Unknown Unknown CDT AM CDT Gerard Cruz MD CHEMISTRY Performing Organization Address City/[facility]/ZIP Code Phon e Number [facility] [address] [place] [address] (ABNORMAL) Magnesium (02/08/2022 5:23 AM CDT) athologist Signature MAGNESIUM 1.3 (L) 1.6 - 2.6 02/08/2022 [place] mg/dL 6:12 AM CDT [facility] LABORATORY Specimen Anatomical Collection Method Collection Time Receive d Time (Source) Location / / Volume Laterality Blood BLOOD SPECIMEN / [place] / 02/08/2022 5:23 AM 02/08 5:46 Unknown Unknown CDT AM CDT Gerard Cruz MD CHEMISTRY Performing Organization Address City/State/ZIP Code Phon e Number [facility] [address] [place] [address] Lipase (02/08/2022 5:23 AM CDT) athologist Signature LIPASE 11.7 8.0 - 78.0 02/08/2022 [place] IU/L 6:10 AM CDT [facility] Specimen Anatomical Collection Method Collection Time Receive d Time (Source) Location / / Volume Laterality Blood BLOOD SPECIMEN / [place] / 02/08/2022 5:23 AM 02/08 5:46 Unknown Unknown CDT AM CDT Gerard Cruz MD CHEMISTRY Performing Organization Address City/State/ZIP Code Phon e Number [facility] [address] [place] [address] (ABNORMAL) Complete Metabolic Panel (02/08/2022 5:23 AM CDT) [facility] Method Time Signature SODIUM 139 135 - 145 02/08/2022 [place] mmol/L 6:09 AM [facility] POTASSIUM 3.9 3.5 - 5.0 02/08/2022 [place] mmol/L 6:09 AM [facility] CHLORIDE 108 98 - 110 02/08/2022 [place] mmol/L 6:09 AM [facility] CO2,TOTAL 22 21 - 31 02/08/2022 [place] mmol/L 6:09 AM [facility] ANION GAP 9 5 - 18 [facility] LABORATORY GLUCOSE 125 (H) 65 - 100 02/08/2022 [place] mg/dL 6:09 AM [facility] LABORATORY CALCIUM 8.3 (L) 8.5 - 02/08/2022 [place] 10.5 6:09 AM [facility] mg/dL LABORATORY BUN 8 8 - 25 02/08/2022 [place] mg/dL 6:09 AM [facility] LABORATORY CREATININE 0.63 0.57 - 02/08/2022 [place] 1.11 6:09 AM [facility] mg/dL LABORATORY BUN/CREAT RATIO 13 10 - 20 02/08/2022 [place] 6:09 AM [facility] LABOR[facility]ORY ALBUMIN 3.5 3.5 - 5.2 02/08/2022 [place] g/dL 6:09 AM [facility] LABORATORY PROTEIN,TOTAL 5.0 (L) 6.0 - 8.0 02/08/2022 [place] g/dL 6:09 AM [facility] LABORATORY GLOBULIN 1.5 (L) 2.0 - 3.7 02/08/2022 [place] g/dL 6:09 AM [facility] LABORATORY A/G RATIO 2.3 (H) 1.0 - 2.0 02/08/2022 [place] 6:09 AM [facility] LABORATORY BILIRUBIN,TOTAL 10.7 (H) 0.2 - 1.2 02/08/2022 [place] mg/dL 6:09 AM [facility] LABORATORY ALK PHOSPHATASE 293 (H) 50 - 136 02/08/2022 [place] IU/L 6:09 AM [facility] LABORATORY ALT (SGPT) 20 8 - 45 02/08/2022 [place] IU/L 6:09 AM [facility] LABOR[facility]ORY AST (SGOT) 57 (H) 2 - 40 02/08/2022 [place] IU/L 6:09 AM [facility] LABORATORY eGFR >90 >90 02/08[facility] mL[facility]min/1. 6:09 AM [facility] 73m2 LABORATORY Comment: As of 2021, eGFR [...] Organization Address City/State/ZIP Code Phon e Number [facility] [address] [place] [address] EKG 12 Lead (02/08/2022 4:51 AM CDT) [...] NOW QTc 507 ms BEYOND NOW P [place] 50 degrees BEYOND NOW R [place] 37 degrees BEYOND NOW T [place] 26 degrees BEYOND NOW Specimen Anatomical Collection Method Collection Time Receive d Time (Source) Location / / Volume Laterality 02/08/2022 4:51 AM 5:56 CDT AM CDT Gerard Cruz MD EKG ORD Performing Organization Address City/State/ZIP Code Phon e Number BEYOND NOW [place], [place] RBC W TYPE AND SCREEN (02/08/2022 12:56 AM CDT) [facility] Method Time Signature ABORH B Rh [...] Organization Address City/State/ZIP Code Phon e Number [facility] [address] [place] [address] BLOOD BANK from Last 3 Months Insurance Payer Benefit Plan / Subscriber ID Effective Dates Phone Addre ss Type Group [employer] [place] [employer] [id number] 2018-Present [address] [address] [place] [address] [place] [id number] 2015-Presen [address] [address] [place] [address] Catia Carias E Personal/Famil Self 1990 AP T 3 y (Home) [address] [place] [address] Catia Carias E Motor Vehicle Self 1990 [address] (Home) [facility] [address] Advance Directives Latest Code Status on File [...] 12:37 AM 11/08/2019 9:50 PM Care Teams Fence Post Driver Relationship Specialty Start Date End Date Ana Red PA-C PCP - General Physician [employer] Supervisor 02/09/[address] [place] [address] [place] [id number]
--- OUTSIDE RECORDS SUMMARY | 2022-02-16 12:34 | XMS_ITS | Encounter Summary ---
:1990 Author Organization [facility] Address [address] [place] [id number] Phone Care Team Providers Name Role Phone [...] No / Unsu re 07/08/2021 9:38 AM [employer]ITY [employer] DIRECTOR someone who was confirmed or suspected to have Coronavirus/COVID-19? documented as of this encounter Plan of Treatment Not on filedocumented as of this encounter Visit Diagnoses Not on filedocumented in this encounter
--- OUTSIDE RECORDS SUMMARY | 2022-02-16 12:35 | XMS_ITS ---
:1990 Author Care Team Providers Name Role Phone STEPHANIE RODRIGUEZ AMILCAR Nurse Practitioner [phone] Parris Knight (mother) Patient Designee [phone] HEYDI BHAGAT MD Transplant Associate Account Manager [phone] [facility] CARE TEAM Palliative Care [phone] TAYLOR PAUL RN Palliative Care [phone] DOMINICK TODD MD Primary Care Provider [phone] CORNELL [facility] [facility] Lead Driver [phone] THOMAS JERNIGAN CCS OTHER [phone] Allergies Code Code System Name Reaction Severity [...] None recorded. Past Encounters 02/05/2022 Stephanie Rodriguez CODING COMPLIANCE AUDITOR: [address] [place] [address], Ph. 12/01/2021 Stephanie Rodriguez CNP: [address] [place] [address], Ph. 11/27/2021 Taylor Paul RN: [address] [place] [phone], Ph. 11/05/2021 Stephanie Rodriguez, CODING COMPLIANCE AUDITOR: [address] [place] [phone], Ph. 10/14/2021 Evi Biggs LPN: [address] [place] [address] [place] [address], Ph. Social History None recorded. Vaccine List None recorded. Plan of Care Patient Instructions Patient instructed to call with [email or web address] ns or concerns. Patient instructed to call with [email or web address] ns or concerns. Reminders Provider Appointments None recorded. ? ? Lab None recorded. ? ? Referral None recorded. ? ? Procedures None recorded. ? ? Surgeries None recorded. ? ? Imaging None recorded. ? ? Vitals Height Weight BMI Blood Pressure 5 ft 2 in 133 lbs 24.3 kg/m2 98/58 mm[Hg]
--- OUTSIDE RECORDS SUMMARY | 2022-02-16 12:35 | XMS_ITS | Encounter Summary ---
:1990 Author Organization [facility] Address [address] [place] [address] Care Team Providers Name Role Phone [facility] Primary Care Provider [phone] [facility] Unavailable [phone] Encounter Details Date Type Department Care Team [...] on filedocumented in this encounter Care Teams Local Operator Relationship Specialty Start Date End Date [facility] PCP - General 09/30/18 [place] [address] [place] [address] [facility] PCP - Primary Care Clinic [address] [place] [address] [place] [address] documented as of this encounter
--- OUTSIDE RECORDS SUMMARY | 2022-02-16 12:35 | XMS_ITS | Encounter Summary ---
:1990 Author Organization [facility] Address [address] [place] [address] Care Team Providers Name Role Phone [facility], [facility] Primary Care Provider [phone] [facility] Unavailable [phone] Reason for Referral (Routine) - Closed Specialty Diagnoses / Procedures Referred By Contact Refer red To Contact Procedures Gonzalo Tavera MD Return to previous diet [address] [place], [place] [address] Referral ID Status Reason Start Date Expiration Date Visits Requ ested Visits Authorized [id number] Closed 10/02/2018 10/02/2019 1 1 (Routine) - Closed Specialty Diagnoses / Procedures Referred By Contact Refer red To Contact Procedures Gonzalo Tavera MD Normal activity as tolerated [address] [place], [place] [address] Referral ID Status Reason Start Date Expiration Date Visits Requ ested Visits Authorized [id number] Closed 10/02/2018 10/02/2019 1 1 (Routine) - Closed Specialty Diagnoses / Procedures Referred By Contact Refer red To Contact Gonzalo Tavera MD [facility], [facility] [address] [place], [place] [address] [address] [place] [address] Fax: Referral ID Status Reason Start Date Expiration Date Visits Requ ested Visits Authorized [id number] Closed 10/02/2018 10/02/2019 1 1 Question Answer Specify time frame for follow up? 1 Week (Routine) - Closed Specialty Diagnoses / Procedures Referred By Contact Refer red To Contact Procedures Gonzalo Tavera MD [facility] [place] [address] Referral ID Status Reason Start Date Expiration Date Visits Requ ested Visits Authorized [id number] Closed 10/02/2018 10/02/2019 1 1 Reason for Visit Inpatient Admission Specialty Diagnoses / Procedures Referred By Contact Refer red To Contact Diagnoses Acute hepatitis Hepatitis, Acute Referral ID Status Reason Start Date Expiration Date Visits Requ ested Visits Authorized [id number] 1 1 Encounter Details Date Type Department Care Team Description 09/30/2018 - Hospital Encounter W2 Hm-Hospitalist [facility] [place] [address] Acute hepatitis 10/02/[address] [place] [address] Gonzalo Tavera MD [facility] [place] [place] [address] [place] [address] Social History Tobacco Use Types Packs/Day Years [...] Tavera MD - 10/02/2018 12:02 PM CDT [facility] ([facility]) HOSPITAL DISCHARGE SUMMARY Patient Name: Catia Carias Date of : 1990 Admission Date: 09/30/2018 Discharge Date: 10/02/2018 She will be discharged to home. Primary care: [facility] Consultants: 1. Gastroenterology 2. Orthopedics DISCHARGE [...] to Excess Tylenol Use:??Presented as direct admissionfrom [address] in [place]??with??abdominal pain and vomiting??x 2??days. ??She had been [...] open reduction internal fixation on 08/29/[address]??Dr[address] Omar Rodriguez. ??Has been having [...] Up Referral Priority: Routine Referred to Provider: [facility] Number of Visits Requested: 1 CODE STATUS: [...] Tavera MD, Hospitalist Internal Medicine and Pediatrics [facility] Medicine Time: over 30 minutes documented [...] live longer. For further assistanceplease call the [employer] Helpline at [phone] or go to their website [email or web address] documented in this encounter Medications at Time [...] 10/02/2018 12:02 PM CDT Catia Carias 1990 [id number] P: Discharge A: Discharged ambulatory to home at 1145 escorted by self I: Discharge information and arrangements included: review of written discharge instructions, belongings list completed. R:Patient expressed understanding of information.. Andreas Paul RN - 10/02/2018 3:52 AM CDT Med-Surg Care Progression Note Type: Shift to shift summary [id number] Length of stay: 2 days Code Status: [...] with questions or concerns. Criselda Coker MD [facility] [phone] Evi Londono RN - 10/01/2018 12:22 PM [...] Tavera MD - 10/01/2018 10:32 AM CDT [facility]) PROGRESS NOTE CHIEF COMPLAINT: Arm pain [...] Tylenol Use: Presented as direct admission from [address] in [place] with abdominal pain and vomiting x 2 [...] open reduction internal fixation on 08/29/[address] Omar Rodriguez. Has been [...] pain remains uncontrolled may need to consider TRANSCRIPTION SPECIALIST. Consulted Orthopedics for assistance with management. Defer further imaging to Orthopedics. I'm worried about progressive or new ulnar nerve impingement or damage. Will start gabapentin 300 mg TID. 3. Recent Pancreatitis: Was admitted at [address] in [place] 09/08/2018 - 09/11/2018 for pancreatitis. Etiology was [...] Tavera MD, Hospitalist Internal Medicine and Pediatrics [facility] Medicine Pager: [phone] SKIN: Surgical Incision Left;Posterior Elbow (Active) No [...] Not applicable Pt comes from [facility] d/t tylenol overdose occurring because of pt [...] to call for help, name of assigned wound care nurse, initialphysician orders, hourly rounding procedures, belongings checklist, [...] stability. The patient is direct admission from [facility] with acute hepatitis likely due to excess [...] on . Per labs from [facility] LFTs are elevated reveals ALt of 624, AST of 3,955, and ALKP of 186. Total bilirubin is 1.2. Creatinine is 0.56, sodium is 136, HCO3 of 16, and potassium 4.5. INR is 1.5. Acetaminophem level is < 3. Lipase is 78.5. Serum test is negative. Lactic acid level is 2.9. Suspect livery dysfunction is contributing lactic acidosis at outside facility. [facility] Physician discussed case w/ GI Physician Dr. Davis who recommended pt be transferred [facility] as direct admission and be started on [...] being started on it at [facility] in conjuction with staff readiness officer and Pharmacist. Has received initial bag [...] 09/30/2018 3:39 AM CDT Received report from [facility] in [place]. 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 LFT's: AST 3955 ALT 624 Alk Phos 186 Lactate 2.9 Pt received 1 liter LR in the ED and the N-acetyl cysteine was started. First dosing was 70622 mg in200 ml, completed in the ED, and 3380mg in 500 ml was initiated before transport. documented in this encounter H&P Notes Gonzalo Tavera MD - 09/30/2018 9:58 AM CDT [facility]) ADMISSION HISTORY AND PHYSICAL Patient Name: Catia Carias Address: [address] [place] [address] Age: 28 y.o. Sex: Female Admission Date/Time: 09/30/2018 4:11 AM Primary Care Provider: [facility] Admitting provider: [facility]-Hospitalist, Dr. Gonzalo Tavera Informant: patient as [...] open reduction internal fixation on 08/29/[address] Catia states that she was discharged [...] Oxycodone. Catia ended up being admitted at [address] 09/08/18 - 09/11/18 for acute pancreatitis which initially required Morphine TRANSCRIPTION SPECIALIST for pain c ontrol. Catia followed up [...] vomited 6 times therefore she went to [place] [address] emergency department to be evaluated. Mario Alberto kang states that she only has abdominal pain when she is vomiting. She vomited multiple times in the emergency department. She was transferred to [facility] for further evaluation by Gastroenterology and states [...] file Gets together: Not on file Attends jewish service: Not on file Active member of [...] Tylenol Use: Presented as direct admission from [address] in [place] with abdominal pain and vomiting x 2 [...] open reduction internal fixation on 08/29/[address] Omar Rodriguez. Has been having uncontrolled neuropathic pain which has not responded to Gabapentin. Pain has minimally improved prior to admission with Percocet or Oxycodone. Treating pain with PRN IV Morphine. If pain remains uncontrolled may need to consider TRANSCRIPTION SPECIALIST. Consulted Orthopedics for assistance with management. Defer further imaging to Orthopedics. I'm worried about progressive or new ulnar nerve impingement or damage. Will start gabapentin 300 mg TID. 3. Recent Pancreatitis: Was admitted at [address] in [place] 09/08/2018 - 09/11/2018 for pancreatitis. Etiology was [...] our joint decision making. Kimberly Rosas PA-C [facility] Medicine Service Pager: [phone] ADDENDUM: Chart reviewed. Patient seen and examined [...] Tavera MD, Hospitalist Internal Medicine and Pediatrics [facility] Medicine Pager: [phone] documented in this encounter Consult Notes Xuan Block, BLUEPRINT MACHINE OPERATOR, PROTOTYPE ENGINEER - 09/30/2018 2:24 PM CDTAssociated Order(s): CONSULT ORTHOPEDIC SURGERY ORTHOPEDIC CONSULT CHIEF COMPLAINT: left arm nerve pain HISTORY of PRESENT ILLNESS: Catia Carias is a 28 y.o. year old female who had an orif of her left distal humerus in [place] on 08/29/18. She has had 2 f/u [...] Discussed with Hospital medicine. Xuan Block, YARITZA, PROTOTYPE ENGINEER Felicita Dia PA-C - 09/30/2018 10:19 AM CDTAssociated Order(s): CONSULT GASTROENTEROLOGY Images from the original note were not included. GI CONSULT SERVICE CONSULT NOTE Patient Name: Catia Carias Admission Date/Time: 09/30/2018 4:11 AM [facility] Attending Physician: Mele-Hospitalist I was asked to see this patient at the request of Dr. Conrad for evaluation of acute hepatitis. REASON FOR CONSULTATION: Acute hepatitis CC: abdominal pain, nausea and vomiting HISTORY OF PRESENT ILLNESS: 28 y.o. female with a history of ORIF of left upper extremity and acute pancreatitis of unclear etiology 10 days postop who directly admitted from [facility] ED with acute hepatitis on 09/30/2018. Patient [...] a week. She presented to [facility] ED 09/29 with 2 3 days of [...] on NAC protocol. She was transferred to [facility]. PAST MEDICAL HISTORY: Past Medical [...] will continue to follow. Felicita Dia PA-C [facility] Pager: [employer] Weekends and after 5 p.m., call [phone] documented in this encounter Nursing Notes Jyoti [...] d/c. Should d/c needs arise, please page/call Retail Hel[employer] to update. Care management is available should further needs arise. Barriers to discharge: Medical stability Care management will continue to follow. Ivet Bob RN Case Manager 2W Observation Unit Pager: [phone] documented in this encounter Miscellaneous Notes Result Encounter Note - Sammy Mack PA-C - 10/02/2018 12:02 PM CDT SAMMY Screen positive. Forwarded to Dr. Tavera. Sammy Mack PA-C [facility] Medicine Service Pager: [phone] Med Reconciliation - Emperatriz Corral - 09/30/2018 1:52 PM CDT PHARMACY MEDICATION RECONCILIATION NOTE MEDICATION RECONCILIATION on admission by pharmacy has been completed. Prior to admission medications were reviewed with patient and [facility] presciption refill information. The SCALER medication list has been updated and reflected in the chart below. Please use the SCALER medication section for ordering home doses during admission. Medication related issues including pertinent changes made to the SCALER list by pharmacy: (discrepancies, interactions, additions, removal, [...] care of this patient. Emperatriz Corral Phone #:[phone] or [phone] Time spent reconciling meds:20 min documented in [...] - 13.0 10/02/2018 [facility] sec. 8:58 AM CDT HEALTH LABORATORY INR 1.2 1.0 - 1.2 10/02/2018 [facility] 8:58 AM CDT [facility] LABORATORY Specimen Anatomical Collection Method Collection Time Receive d Time (Source) Location / / Volume Laterality Blood 10/02/2018 8:23 AM 9 8:40 CDT AM CDT Kimberly Rosas PA-C COAGULATION ORDERABLE Performing Organization Address City/[facility]/ZIP Code Phon e Number [facility] [address] [place] [address] LABORATORY Smooth Muscle Antibody (10/02/2018 8:22 AM CDT) [facility] Method Time Signature Smooth Muscle Negative Negative 10/04/2018 [facility] Screen 10:17 AM CDT LABORATORIES Comment: ADDITIONAL INFORMATIO N This test was developed and its performa nce characteristics determined by [facility] in a manner co nsistent with CLIA requirements. This test has not been norah ared or approved by the U.S. Food and Drug Administration. Test Performed by: [facility] [address] [place], [place] [address] Specimen Anatomical Collection Method Collection Time Receive d Time (Source) Location / / Volume Laterality Blood 10/02/2018 8:22 AM 9 8:39 CDT AM CDT Criselda Coker MD SEND OUT ORDERABLE Performing Organization Address City/[facility]/ZIP Code Phon e Number [facility] [employer] [address] [place] [address] (ABNORMAL) CBC- Daily AM (10/02/2018 8:22 AM CDT)Only the most recent of2 resultswithin the time period is included. [facility] Method Time Signature WBC 7.5 4.3 - 10.8 10/02/2018 [facility] K/uL 8:45 AM CDT HEALTH LABORATORY RBC 3.77 (L) 4.20 - 10/02/2018 [facility] 5.40 M/uL 8:45 AM CDT HEALTH LABORATORY HEMOGLOBIN 13.0 12.0 - 10/02/2018 [facility] 16.0 gm/dL 8:45 AM CDT HEALTH LABORATORY HEMATOCRIT 39.2 36.0 - 10/02/2018 [facility] 48.0 % 8:45 AM CDT HEALTH LABORATORY MCV 104 (H) 80 - 100 10/02/2018 [facility] fl 8:45 AM CDT HEALTH LABORATORY MCH 35 (H) 27 - 33 pg 10/02/2018 [facility] 8:45 AM CDT HEALTH LABORATORY MCHC 33 33 - 36 10/02/2018 [facility] gm/dL 8:45 AM T HEALTH LABORATORY RDW 13.3 11.5 - 10/02/2018 [facility] 14.5 % 8:45 AM CDT HEALTH LABORATORY PLATELET COUNT 218 150 - 400 10/02/2018 [facility] K/UL 8:45 AM [facility] LABORAT[facility] MPV 10.3 6.5 - 12 10/02/2018 [facility] 8:45 AM T HEALTH LABORATORY Specimen Anatomical Collection Method Collection Time Receive d Time (Source) Location / / Volume Laterality Blood 10/02/2018 8:22 AM 9 8:41 CDT AM CDT Marli Girard RN HEMATOLOGY ORDERABLE Performing Organization Address City/State/ZIP Code Phon e Number [facility] [address] [place] [address] LABORATORY Lipase (10/02/2018 8:22 AM CDT)Only the most recent of3 resultswithin the time period is included. P athologist Signature LIPASE 221 73 - 350 10/02/2018 [facility] IU/L 9:06 AM CDT HEALTH LABORATORY Specimen Anatomical Collection Method Collection Time Receive d Time (Source) Location / / Volume Laterality Blood 10/02/2018 8:22 AM 9 8:40 CDT AM CDT Kimberly Rosas PA-C CHEMISTRY ORDERABLE Performing Organization Address City/State/ZIP Code Phon e Number [facility] [address] [place] [address] LABORATORY (ABNORMAL) Basic Metabolic Profile Daily AM (10/02/2018 8:22 AM CDT)Only the most recent of4 resultswithin the time period is included. [facility] Method Time Signature SODIUM 140 136 - 145 10/02/2018 [facility] mmol/L 9:18 AM [facility] LABORATORY POTASSIUM 4.1 3.5 - 5.1 10/02/2018 [facility] mmol/L 9:18 AM [facility] LABORATORY CHLORIDE 107 98 - 112 10/02/2018 [facility] mmol/L 9:18 AM [facility] LABORATORY CARBON DIOXIDE 28 21 - 32 10/02/2018 [facility] mmol/L 9:18 AM [facility] LABORATORY BUN (UREA 1 (L) 7 - 24 10/02/2018 [facility] NITRO) mg/dL 9:18 AM [facility] LABOR[facility] CREATININE 0.35 (L) 0.55 - 10/02/2018 [facility] 1.02 mg/dL 9:18 AM [facility] LABOR[facility] EST GFR >60 >60 mL/min 10/02/2018 [facility] (CKD-EPI) 9:18 AM [facility] LABOR[facility] EST GFR IF >60 >60 mL/min 10/02/2018 [facility] AM 9:18 AM [facility] LAB[facility] GLUCOSE 100 74 - 106 10/02/2018 [facility] mg/dL 9:18 AM [facility] LABOR[facility]ORY CALCIUM, SERUM 8.6 8.5 - 10.1 10/02/2018 [facility] mg/dL 9:18 AM [facility] ANION GAP 5.0 0.0 - 15.0 10/02/2018 [facility] mmol/L 9:18 AM [facility] LABORATORY Specimen Anatomical Collection Method Collection Time Receive d Time (Source) Location / / Volume Laterality Blood 10/02/2018 8:22 AM 9 8:40 CDT AM CDT Kimberly Rosas PA-C CHEMISTRY ORDERABLE Performing Organization Address City/State/ZIP Code Phon e Number [facility] [address] [place] [address] LABORATORY (ABNORMAL) Liver Profile (10/02/2018 8:22 AM CDT)Only the most recent of5 resultswithin the time period is included. Analysis Performed At Patho logist Time Signature ALT 271 (H) 12 - 68 10/02/2018 [facility] IU/L 9:18 AM [facility] LABORATORY ALKALINE 165 (H) 45 - 117 10/02/2018 [facility] P'TASE IU/L 9:18 AM [facility] LABORAT[facility] AST (SGOT) 274 (H) 12 - 37 10/02/2018 [facility] IU/L 9:18 AM [facility] LABOR[facility]ORY PROTEIN TOTAL 6.0 (L) 6.4 - 8.2 10/02/2018 [facility] g/dL 9:18 AM [facility] LAB[facility] ALBUMIN 3.0 (L) 3.4 - 5.0 10/02/2018 [facility] g/dL 9:18 AM [facility] LABOR[facility] BILIRUBIN-DIRE 0.56 (H) 0.05 - 10/02/2018 [facility] CT 0.24 mg/dL 9:18 AM [facility] LABOR[facility]ORY BILIRUBIN-TOTA 1.2 (H) 0.2 - 1.0 10/02/2018 [facility] L mg/dL 9:18 AM [facility] LABOR[facility] Specimen Anatomical Collection Method Collection Time Receive d Time (Source) Location / / Volume Laterality Blood 10/02/2018 8:22 AM 9 8:40 CDT AM CDT Kimberly Rosas PA-C CHEMISTRY ORDERABLE Performing Organization Address City/State/ZIP Code Phon e Number [address] [place] [address] [phone] LABORATORY Magnesium (10/02/2018 8:22 AM CDT)Only the most recent of4 resultswithin the time period is included. P athologist Signature Magnesium 2.0 1.8 - 2.4 10/02/2018 [facility] mg/dL 9:07 AM [facility] LABORATORY Specimen Anatomical Collection Method Collection Time Receive d Time (Source) Location / / Volume Laterality Blood 10/02/2018 8:22 AM 9 8:40 CDT AM CDT Robby Conrad MD CHEMISTRY ORDERABLE Performing Organization Address City/State/ZIP Code Phon e Number [address] [place] [address] LABORATORY Potassium, Serum (10/01/2018 8:16 PM CDT)Only the most recent of3 resultswithin the time period is included. P athologist Signature POTASSIUM 4.2 3.5 - 5.1 10/01/2018 [facility] mmol/L 8:50 PM CDT HEALTH LABORATORY Specimen Anatomical Collection Method Collection Time Receive d Time (Source) Location / / Volume Laterality Blood 10/01/2018 8:16 PM 9 8:32 CDT PM CDT Marli Girard RN CHEMISTRY ORDERABLE Performing Organization Address City/State/ZIP Code Phon e Number [address] [place] [address] LABORATORY (ABNORMAL) Acetaminophen (10/01/2018 4:43 PM CDT)Only the most recent of3 resultswithin the time period is included. Patholo gist Method Time Signature ACETAMINOPHEN 2 (L) 10 - 30 10/01/2018 [facility] (TYLENOL) ug/mL 5:34 PM CDT HEALTH LABORATORY Specimen Anatomical Collection Method Collection Time Receive d Time (Source) Location / / Volume Laterality Blood 10/01/2018 4:43 PM 9 5:07 CDT PM CDT Erika Silver DO CHEMISTRY ORDERABLE Performing Organization Address City/State/ZIP Code Phon e Number [address] [place] [address] LABORATORY (ABNORMAL) IgG (10/01/2018 7:08 AM CDT) P athologist Signature IGG 530 (L) 700-1,600 10/01/2018 [facility] mg/dL 2:03 PM CDT HEALTH LABORATORY Specimen Anatomical Collection Method Collection Time Receive d Time (Source) Location / / Volume Laterality Blood 10/01/2018 7:08 AM 9 7:22 CDT AM CDT Criselda Coker MD CHEMISTRY ORDERABLE Performing Organization Address City/[facility]/ZIP Code Phon e Number [address] [place] [address] LABORATORY (ABNORMAL) SAMMY Screen (10/01/2018 7:08 AM CDT) Analysis Performed At Patho logist Time Signature SAMMY SCRN Positive (A) Negative 10/03/2018 [facility] 1:37 PM CDT HEALTH LABORATORY Specimen Anatomical Collection Method Collection Time Receive d Time (Source) Location / / Volume Laterality Blood 10/01/2018 7:08 AM 9 7:22 CDT AM CDT Criselda Coker MD CHEMISTRY ORDERABLE Performing Organization Address City/State/ZIP Code Phon e Number [facility] [address] [place] [address] LABORATORY XR ELBOW LT (09/30/2018 1:16 PM [...] SIGNED BY DR. Lloyd Arcos Xuan Block BLUEPRINT MACHINE OPERATOR, PROTOTYPE ENGINEER XRAY ORDERABLE Hepatitis A/B/C Panel (09/30/2018 6:42 AM CDT) Patholo gist Method Time Signature HEP BC IGM DELBERT Non-Reacti Non-Reacti 09/30/[facility] AM [facility]ALTH LAB[facility]ATORY HEP A IGM DELBERT Non-Reacti Non-Reacti 09/30/[address] [facility] L ve ve 8:24 AM CDT HEALTH LABORATORY HEP BS ANTIGEN Non-Reacti Non-Reacti 09/30/2018 [facility] AL ve ve 8:24 AM CDT HEALTH LABORATORY Hepatitis C Non-Reacti Non-Reacti 09/30/2018 [facility] Antibody ve ve 8:24 AM CDT HEALTH LABORATORY Specimen Anatomical Collection Method Collection Time Receive d Time (Source) Location / / Volume Laterality Blood 09/30/2018 6:42 AM 9 6:59 CDT AM CDT Robby Conrad MD IMMUNOLOGY ORDERABLE Performing Organization Address City/[facility]/ZIP Code Phon e Number [address] [address] LABORATORY Lactic Acid (09/30/2018 6:42 AM CDT) P athologist Signature LACTIC ACID 1.9 0.7 - 2.1 09/30/2018 [facility] mmol/L 7:03 AM T [facility] LABORATORY Specimen Anatomical Collection Method Collection Time Receive d Time (Source) Location / / Volume Laterality Blood 09/30/2018 6:42 AM 9 7:00 CDT AM CDT Robby Conrad MD CHEMISTRY ORDERABLE Performing Organization Address City/[facility]/ZIP Code Phon e Number [address] [address] [phone] LABORATORY (ABNORMAL) CBC / Diff (09/30/2018 6:42 AM CDT) Patholo gist Method Time Signature WBC 14.6 (H) 4.3 - 09/30/2018 [facility] 10.8 K/uL 6:59 AM T HEALTH LABORATORY RBC 3.90 (L) 4.20 - 09/30/2018 [facility] 5.40 M/uL 6:59 AM T HEALTH LABORATORY HEMOGLOBIN 13.6 12.0 - 09/30/2018 [facility] 16.0 6:59 AM T HEALTH gm/dL LABORATORY HEMATOCRIT 39.9 36.0 - 09/30/2018 [facility] 48.0 % 6:59 AM CDT HEALTH LABORATORY MCV 102 (H) 80 - 100 09/30/2018 [facility] fl 6:59 AM CDT HEALTH LABORATORY MCH 35 (H) 27 - 33 09/30/2018 [facility] pg 6:59 AM CDT HEALTH LABORATORY MCHC 34 33 - 36 09/30/2018 [facility] gm/dL 6:59 AM CDT HEALTH LABORATORY RDW 13.2 11.5 - 09/30/2018 [facility] 14.5 % 6:59 AM CDT HEALTH LABORATORY PLATELET COUNT 257 150 - 400 09/30/2018 [facility] K/UL 6:59 AM CDT HEALTH LABORATORY MPV 9.7 6.5 - 12 09/30/2018 [facility] 6:59 AM CDT HEALTH LABORATORY PMN % 90.9 % 09/30/2018 [facility] 6:59 AM CDT HEALTH LABORATORY IG% 0.3 <=1.0 % 09/30/2018 [facility] 6:59 AM CDT HEALTH LABORATORY LYMPH % 5.1 % 09/30/2018 [facility] 6:59 AM CDT HEALTH LABORATORY MONO % 3.2 % 09/30/2018 [facility] 6:59 AM CDT HEALTH LABORATORY EOS % 0.3 % 09/30/2018 [facility] 6:59 AM CDT HEALTH LABORATORY BASO % 0.2 % 09/30/2018 [facility] 6:59 AM CDT HEALTH LABORATORY PMN ABSOLUTE 13.28 (H) 1.80 - 09/30/2018 [facility] 7.80 K/uL 6:59 AM CDT HEALTH LABORATORY IG ABSOLUTE 0.05 K/uL 09/30/2018 [facility] 6:59 AM CDT HEALTH LABORATORY LYMPH ABSOLUTE 0.74 (L) 1.00 - 09/30/2018 [facility] 4.00 K/uL 6:59 AM CDT HEALTH LABORATORY MONO ABSOLUTE 0.47 0.00 - 09/30/2018 [facility] 1.00 K/uL 6:59 AM CDT HEALTH LABORATORY EOS ABSOLUTE 0.04 0.00 - 09/30/2018 [facility] 0.45 K/uL 6:59 AM CDT HEALTH LABORATORY BASO ABSOLUTE 0.03 0.00 - 09/30/2018 [facility] 0.20 K/uL 6:59 AM CDT HEALTH LABORATORY NUCL RBC % 0.0 0.0 - 0.0 09/30/2018 [facility] /100 WBC 6:59 AM CDT HEALTH LABORATORY NUCL RBC 0.00 K/uL 09/30/2018 [facility] ABSOLUTE 6:59 AM CDT HEALTH LABORATORY Specimen Anatomical Collection Method Collection Time Receive d Time (Source) Location / / Volume Laterality Blood 09/30/2018 6:42 AM 9 6:56 CDT AM CDT Robby A Matter HEMATOLOGY ORDERABLE Performing Organization Address City/State/ZIP Code Phon e Number [facility] [address] [place] [address] LABORATORY documented in this encounter Visit Diagnoses [...] 15mg. documented in this encounter Care Teams Farmer General Relationship Specialty Start Date End Date [facility], [facility] PCP - General 09/30/18 [place] [address] [place] [id number] [facility] PCP - Primary Care Clinic 9 [address] [place] [address] documented as of this encounter
--- OUTSIDE RECORDS SUMMARY | 2022-02-16 12:35 | XMS_ITS | Encounter Summary ---
:1990 Author Care Team Providers Name Role Phone Ervin Schroeder MD Primary Care Provider [phone] [facility] OTHER [phone] Parris Knight (Mother) Patient Designee [phone] Jairo Rodriguez MANAGER TEST Nurse Practitioner [phone] Matthew Rollins MD Transplant Bleach Boiler Packer [phone] [facility] Care Team Palliative Care [phone] Taylor Paul RN Palliative Care [phone] Zenobia Kirby [facility] Accounting Tutor [phone] Reason for Visit Transition of Care Assessment [...] care for herself during the day. Scheduled MANAGER TEST follow up for next week. Nurse advised [...] Alexandre's 23/11 availab ility of a licensed appraiser to provide immediate guidance over the phone [...] Education provided. Next Steps: Patient outreach in [facility] 3-4 weeks. [Research resources]. Taylor Paul RN Discussion Note: None recorded.Patient educational handouts: No information available. Plan of Care Patient Instructions [facility] Reminders [...] Unknown. Past Encounters 11/27/2021 Taylor Paul RN: [address] [place] [phone], Ph. 11/05/2021 Jairo Silvano Jennifer, TRANSFORMATION CONSULTANT: [address] [place] [address], Ph. [phone] History of Present Illness Note: <div>Contact: Nurse performed follow-up visit via {{phone* face to face video}}. Patients' name and date of verified. </div><div>Patient story is presented {{entirely primarily*}} by the {{patient* patient's brother patient's jczxjxa-bi-emp patient's caregiver patient's daughter patient's aqcvwlim-sg-afo patient's friend patient's grandchild patient's patient's sister patient's pysbiq-cw-cuu patient's son patient's son-in-law patient's }} . [...]
--- OUTSIDE RECORDS SUMMARY | 2022-02-16 12:35 | XMS_ITS | Encounter Summary ---
:1990 Author Care Team Providers Name Role Phone Ervin Schroeder MD Primary Care Provider [phone] [facility] OTHER [phone] Parris Knight (Mother) Patient Designee [phone] Jairo Rodriguez GREY ROLL WORKER Nurse Practitioner [phone] Matthew Rollins MD Transplant Costumer Assistant [phone] [facility] Care Team Palliative Care [phone] Taylor Paul RN Palliative Care [phone] Zenobia Kirby [facility] Breaker Layer [phone] Reason for Visit JAN Continuation of Care [...] Inhale 1 each as needed. Med Name: [employer] ada Cannabis Flower, smoking once weekly as [...] Code Code System Name Reaction Severity Onset 26643 RxNorm Azithromycin ? ? ? Problems Name [...] Status Unknown. Past Encounters 12/01/2021 Jairo Rodriguez MARKETING INFORMATION ANALYST: [address] [place] [phone], Ph. 11/27/2021 Taylor Paul RN: [address] [place] [address], Ph. 11/05/2021 Jairo Rodriguez MARKETING INFORMATION ANALYST: [address] [place] [address], Ph. History of Present Illness Note: <div>provider called 3 times, no answer. </div><div>Asking [facility] to try and reschedule appt. </div><div>No services performed.
</div> Review of Systems None recorded. Physical Exam None recorded.
--- OUTSIDE RECORDS SUMMARY | 2022-02-16 12:35 | XMS_ITS | Encounter Summary ---
:1990 Author Care Team Providers Name Role Phone Ervin Schroeder MD Primary Care Provider [phone] [facility] OTHER [phone] Parris Knight (Mother) Patient Designee [phone] Jairo Rodriguez GOLF CART ASSEMBLER Nurse Practitioner [phone] Matthew Rollins MD Transplant Template Clerk [phone] [facility] Care Team Palliative Care [phone] Taylor Paul RN Palliative Care [phone] Zenobia Kirby [facility] Demolitionist [phone] Reason for Visit None recorded. Assessment and Plan Assessment Note Patient answered the phone, states that she is in a car heading to [place] to the transplant clinic. She would like to reschedule appointment. Ok to call and reschedule appointment. Message sent to [facility] No services performed. Discussion Note: None [...] Inhale 1 each as needed. Med Name: [employer] Cannabis Flower, smoking once weekly as needed [...] Status Unknown. Past Encounters 02/05/2022 Jairo Rodriguez, BATCH TESTER: [address], [place] [address], Ph. History of Present Illness None recorded. Review of Systems None recorded. Physical Exam None recorded.
[2022-02-16 14:13] LABS: SARS PCR* Negative SARS-CoV-2 (Negative)
== END 2022-02-16 12:08 | disposition home or self-care (01) ==
LOC: NPINS 12:07
PROVIDERS: PCP Internal Medicine; Visit Provider Internal Medicine
DX: Z20.822 Contact with and (suspected) exposure to COVID-19 (principal)
CPT/HCPCS: 87635

== ENCOUNTER 2022-09-26 16:47 | Outpatient (CLI) | payer BC, SELFPAY | END 2022-09-26 16:48 | disposition home or self-care (01) | LOC: AMB 10-01 10:17 | PROVIDERS: PCP Internal Medicine; Visit Provider Family Medicine | DX: R10.9 Unspecified abdominal pain (principal); K92.0 Hematemesis | CPT/HCPCS: A0425; A0426; A0428 ==

== ENCOUNTER 2023-12-14 18:59 | Emergency (ER) | payer BC, SELFPAY ==
[2023-12-14 19:11] VITALS: BP 116/73; PULSE 94; RESP 18; TEMP 37.1; O2SAT 98; BMI 20.6
--- NOTE | 2023-12-14 19:14 | ED_ITS ---
HPI - General Adult General Chief complaint: Cough Stated complaint: Short of breath, cough Time Seen by Provider: 12/14/23 19:01 History of Present Illness HPI narrative: ross has been having SOB and feeling weak and cough for the last few days, states symptoms started 7 days ago. patient has a hx of liver transplant at [facility] and spoke to her transplant team who advised she be seen. patient tells me in triage she thinks she has covid but doesnt know of any known sick contacts. 33-year-old woman presenting to the emergency department with concern of cough and shortness of breath. Feels more short of breath when lying down. Underlying history of liver transplant taking CellCept. Over the last couple of days has been feeling more fatigued and has had a little cough. Primary complaint though being more feeling short of breath. She does have some sore throat as well. No rashes. She has felt chilled and has assumed a fever though has not measured. Does not note lung disease otherwise. No particular exposures. First symptom probably was sore throat beginning about 6-7 days ago. Did experience laryngitis which improved and now seems to be coming back again. Admittedly generally felt worse 2 days ago than does today. Later clarified medication list as Rifaximin? Ondansetron Prochlorperazine Pantoprazole Vitamin-A? Trazodone Spironolactone? Diclofenac gel Ergo calciferol Cyclobenzaprine? Acetaminophen Lidocaine patches Mycophenolate Tacker limits Famotidine? Low-dose aspirin Gabapentin Related Data Home Medications ?Medication ?Instructions ?Recorded ?Confirmed folic acid 1 mg tablet 1 mg PO QDAY 10/31/21 09/26/22 levonorgestrel 21 mcg/24 hr (up to 1 device intrauterine ONCE 10/31/21 09/26/22 8 years) 52 mg intrauterine device furosemide 20 mg tablet 40 mg PO QAM 11/12/21 09/26/22 ondansetron 8 mg disintegrating 8 mg PO TID PRN 11/12/21 09/26/22 tablet thiamine HCl (vitamin B1) 100 mg 100 mg PO QDAY 11/12/21 12/14/23 tablet diazepam 5 mg tablet 5 mg PO HS 01/31/22 09/26/22 ergocalciferol (vitamin D2) 1,250 50,000 unit PO QWEEK 01/31/22 09/26/22 mcg (50,000 unit) capsule magnesium oxide 400 mg PO BID 01/31/22 09/26/22 promethazine 25 mg tablet 25 mg PO Q6H PRN 01/31/22 12/14/23 ropinirole 2 mg tablet 2 mg PO QHS 01/31/22 01/31/22 spironolactone 100 mg tablet 100 mg PO QDAY 03/17/22 12/14/23 Previous Rx's ?Medication ?Instructions ?Recorded pantoprazole 40 mg tablet,delayed 40 mg PO QDAY #30 tabs 11/25/21 release rifaximin 550 mg tablet (Xifaxan) 550 mg PO BID #60 tabs 11/25/21 magnesium oxide 400 mg PO BID #180 caps 12/04/21 vitamin A 3,000 mcg (10,000 unit) 10,000 unit PO .COMPLEX #40 caps 12/04/21 capsule zinc sulfate 50 mg zinc (220 mg) 50 mg PO QDAY #90 caps 12/04/21 capsule cyclobenzaprine 5 mg tablet 5 mg PO QDAY PRN muscle spasm #15 01/09/22 tabs acetaminophen 500 mg tablet 500 mg PO Q6H PRN pain #60 tabs 01/16/22 (Tylenol Extra Strength) cholecalciferol (vitamin D3) 10 10 mcg PO QDAY #30 caps 01/16/22 mcg (400 unit) capsule diclofenac sodium 1 % topical gel 2 g topical QID #100 grams 01/16/22 (Voltaren Arthritis Pain) lactulose 10 gram/15 mL oral 20 g (30 mL) PO TID #946 mL 01/16/22 solution lidocaine 5 % topical patch 1 patch topical QDAY #30 ea 01/16/22 spironolactone 50 mg tablet 50 mg PO QDAY #30 tabs 01/16/22 Allergies Allergy/AdvReac Type Severity Reaction Status Date / Time azithromycin Allergy Unknown Vomiting Verified 09/26/22 13:13 gabapentin Allergy Unknown Uncoded 12/28/21 22:18 Review of Systems Status of ROS: Reports: 6 or more systems reviewed and unremarkable except as noted in History and below [facility] Medical History Vitamin D deficiency ?E55.9 - Vitamin D deficiency, unspecified (ICD-10) Tobacco abuse ?Z72.0 - Tobacco use (ICD-10) Chronic leg pain ?M79.606 - Pain in leg, unspecified (ICD-10) ?G89.29 - Other chronic pain (ICD-10) Stage 4 chronic kidney disease ?N18.4 - Chronic kidney disease, stage 4 (severe) (ICD-10) Restless legs syndrome ?G25.81 - Restless legs syndrome (ICD-10) Pyelonephritis ?N12 - Tubulo-interstitial nephritis, not specified as acute or chronic (ICD- 10) Patent foramen ovale (03/2020) ?Q21.1 - Atrial septal defect (ICD-10) Malpositioned intrauterine device (IUD) ?T83.32XA - Displacement of intrauterine contraceptive device, initial encounter (ICD-10) Insomnia ?G47.00 - Insomnia, unspecified (ICD-10) History of migraine ?Z86.69 - Personal history of other diseases of the nervous system and sense organs (ICD-10) Hepatic neuropathy ?K76.9 - Liver disease, unspecified (ICD-10) ?G99.0 - Autonomic neuropathy in diseases classified elsewhere (ICD-10) Hepatic encephalopathy ?K72.90 - Hepatic failure, unspecified without coma (ICD-10) Hepatic cirrhosis ?K74.60 - Unspecified cirrhosis of liver (ICD-10) Generalized anxiety disorder with panic attacks ?F41.1 - Generalized anxiety disorder (ICD-10) ?F41.0 - Panic disorder [episodic paroxysmal anxiety] (ICD-10) Gastroesophageal reflux disease without esophagitis (04/16/19) ?K21.9 - Gastro-esophageal reflux disease without esophagitis (ICD-10) Congenital QT prolongation on electrocardiography (01/30/21) ?I45.81 - Long QT syndrome (ICD-10) Chronic pancreatitis (01/23/21) ?K86.1 - Other chronic pancreatitis (ICD-10) Attention deficit hyperactivity disorder (ADHD) ?F90.9 - Attention-deficit hyperactivity disorder, unspecified type (ICD-10) Anemia in chronic kidney disease ?N18.9 - Chronic kidney disease, unspecified (ICD-10) ?D63.1 - Anemia in chronic kidney disease (ICD-10) Allergic rhinitis ?J30.9 - Allergic rhinitis, unspecified (ICD-10) Abdominal ascites ?R18.8 - Other ascites (ICD-10) Surgical History Status post hardware removal (06/27/19) ?Z98.890 - Other specified postprocedural states (ICD-10) History of foot surgery ?Z98.890 - Other specified postprocedural states (ICD-10) Family History Father Hyperlipidemia Maternal Grandfather High blood pressure Prostate cancer Other Type 2 diabetes mellitus Social History Narrative: marijuana use single, no kids, Олег Ochoa, smoker, sober x 1 year Smoking Status: Former smoker Do you use any of these nicotine containing products: None Second hand tobacco smoke exposure: No How often do you have a drink containing alcohol: never AUDIT-C Alcohol total score: 0 Non-prescribed substance use: denies use service: No Exam Narrative: Exam Narrative: Vitals are noted oxygenating 98-99% during this interview. Pleasant. Seems drowsy. Breathing easily. Not very vigorous effort in breathing for auscultation but lungs appear to be clear with breath sounds throughout. No supraclavicular crepitus. She is sore to palpation of the neck but there is no lymphadenopathy or swelling. Oropharynx is moist and without erythema. No stridor. Mildly laryngitic. Heart in elevated rate and regular rhythm. Abdomen is soft nontender. Lower extremities are without edema. She is well- perfused peripherally. Numerous tattoos on her skin. No rashes apparent. Const: Vital Signs, click to edit/add: Vital Signs - 24 hr 12/14/23 19:11 Temperature 98.8 F Pulse Rate [Pulse Oximeter] 94 Respiratory Rate 18 Blood Pressure [Ri ght Upper Arm] 116/73 Pulse Oximetry 98 Oxygen Delivery Me thod Room Air Documenting provider has reviewed patient's vital signs: yes Course Vital Signs Vital signs: Initial Vital Signs Temperature 98.8 F 12/14/23 19:11 Temperature Source Temporal Artery Scan 12/14/23 19:11 Pulse Rate 94 12/14/23 19:11 Respiratory Rate 18 12/14/23 19:11 Blood Pressure 116/73 12/14/23 19:11 Blood Pressure Mean 87 12/14/23 19:11 Blood Pressure Position Sitting 12/14/23 19:11 Pulse Oximetry 98 12/14/23 19:11 Oxygen Delivery Method Room Air 12/14/23 19:11 Vital Signs Temperature 98.8 F 12/14/23 19:11 Pulse Rate 94 12/14/23 19:11 Respiratory Rate 18 12/14/23 19:11 Blood Pressure 116/73 12/14/23 19:11 Pulse Oximetry 98 12/14/23 19:11 Oxygen Delivery Method Room Air 12/14/23 19:11 Temperature 98.8 F 12/14/23 19:11 Pulse Rate 94 12/14/23 19:11 Respiratory Rate 18 12/14/23 19:11 Blood Pressure 116/73 12/14/23 19:11 Pulse Oximetry 98 12/14/23 19:11 Oxygen Delivery Method Room Air 12/14/23 19:11 Medications Administered Medications: Generic Name Dose Route Start Last Admin Trade Name Freq PRN Reason Stop Dose Admin Sodium Chloride 1,000 mls @ 1,000 mls/hr 12/14/23 21:26 12/14/23 21:45 0.9 % Sodium Chloride 1000 Ml IV 12/14/23 22:25 1,000 mls/hr .Q1H ONE Administration Medical Decision Making MDM Narrative Medical decision making narrative: I would be most suspicious of COVID. Will look for other source of infection though. Symptoms do likely represent infection and particularly viral process, more than pulmonary embolus or even pneumonia. Heart failure? Screen urine as well. Differential would also include neutropenic fever though fever has not been actually documented. Chest x-ray. Collect 1 blood culture due to limited availability of blood cultures at this time. Labs return with absolute neutrophil count of 200 Colleague able to find labs from October of 2023 noting a white count of 2.1 with absolute neutrophil count of 1060 Chest x-ray reviewed by me is without evidence of infiltrate. No pneumothorax. Vitals are reassuring. Only abnormal really is elevated pulse though not tachycardic. COVID positive. I think this is a good explanation for all of her symptoms although concerning findings in labs will be communicated to transplant team for further recommendations. Is past 5 days of illness but in this case I would still consider treating with Paxlovid. GFR of 76. However is improving in symptoms generally I think since 2 days ago. Will need accurate medication list against which to check Paxlovid interaction. Able to reach physician covering for liver transplant. Conveyed information as above. Has absolutely no recommendations or opinion other than noting that combining tacrolimus with Paxlovid is contraindicated. Was mildly hyponatremic. Will give a L normal saline. Pending at this time now is urinalysis and liver labs. I do not think there is likely a liver issue here. Anticipating faxing labs to [facility] to send transplant team for close follow-up tomorrow. See patient discharge plan for further discussion Medical Records Medical records reviewed: Yes I reviewed the patient's medical records Lab Data Lab results reviewed: Yes I reviewed the patient's lab results Labs: Lab Results 12/14/23 12/14/23 12/14/23 Range/Units 19:30 19:39 19:49 WBC 0.80 L* (4.50-11.00) K/uL RBC 3.90 L (4.00-5.20) m/uL Hgb 10.9 L (12.0-16.0) gm/dL Hct 31.3 L (33.0-51.0) % MCV 80 (80-100) fL MCH 28 (26-34) pg MCHC 35 (32-36) gm/dL RDW Coeff of Yamileth 12.3 (11.5-15.5) % Plt Count 115 L (140-440) K/uL Neut % (Auto) 23.7 L (42.0-72.0) % Lymph % (Auto) 50.0 H (20-44) % [place] % (Auto) 25.0 H (0.0-11.0) % Eos % (Auto) 1.3 (0.0-7.0) % Baso % (Auto) 0.0 (0.0-3.0) % Neut # (Auto) 0.20 L (1.7-7.0) K/uL Lymph # (Auto) 0.40 L (0.90-2.90) K/uL [place] # (Auto) 0.20 (0.00-0.90) K/UL Eos # (Auto) 0.00 (0.00-0.50) K/uL Baso # (Auto) 0.00 (0.00-0.30) K/uL Abs Immat Gran (auto) 0.00 (0.00-0.30) K/uL Imm/Tot Granulo (auto) 0.0 % Sodium 130 L (135-149) mmol/L Potassium 3.9 (3.6-5.1) mmol/L Chloride 97 (96-114) mmol/L Carbon Dioxide 23 (20-32) mmol/L Anion Gap 10 (7-15) mEq/L BUN 10 (5-24) mg/dL Creatinine 1.0 (0.5-1.5) mg/dL Estimated Creat Clear 58.44 Estimated GFR 76 ml/min Glucose 140 H (60-115) mg/dL Calcium 8.4 (8.4-10.6) mg/dL Magnesium 1.8 (1.5-2.6) mg/dL Total Bilirubin 1.0 (0.1-1.5) mg/dL Direct Bilirubin 0.5 (0.0-0.5) mg/dL AST 26 (12-35) U/L ALT 31 (4-35) U/L Alkaline Phosphatase 136 (40-150) U/L C-Reactive Protein 1.6 H (0.5-1.0) mg/dL NT-Pro-B Natriuret Pep 297 pg/mL Total Protein 6.0 (6.0-8.3) g/dL Albumin 3.6 (3.3-5.0) g/dL Urine Color (Yellow) Urine Appearance (Clear) Urine pH (5.0-8.5) Ur Specific [place] (1.000-1.030) Urine Protein (Negative) Urine Glucose (UA) (Negative) Urine Ketones (Negative) Urine Blood (Negative) Urine Nitrite (Negative) Urine Bilirubin (Negative) Urine Urobilinogen (0.2-1.0) Ur Leukocyte Esterase (Negative) Urine RBC (0-2) Urine WBC (0-5) Ur Squamous Epith Cells (None-Few) Urine Bacteria (None) SARS-CoV-2 (PCR) POSITIVE SARS-CoV-2 A (Negative) Influenza Type A (PCR) Negative PCR FLU A (Negative) Influenza Type B (PCR) Negative PCR FLU B (Negative) RSV (PCR) Negative PCR RSV (Negative) Group A Strep DNA NOT DETECTED (Not Detectd) Lab Acknowledgement 12/14/23 12/14/23 Range/Units 21:26 21:30 WBC (4.50-11.00) K/uL RBC (4.00-5.20) m/uL Hgb (12.0-16.0) gm/dL Hct (33.0-51.0) % MCV (80-100) fL MCH (26-34) pg MCHC (32-36) gm/dL RDW Coeff of Yamileth (11.5-15.5) % Plt Count (140-440) K/uL Neut % (Auto) (42.0-72.0) % Lymph % (Auto) (20-44) % [place] % (Auto) (0.0-11.0) % Eos % (Auto) (0.0-7.0) % Baso % (Auto) (0.0-3.0) % Neut # (Auto) (1.7-7.0) K/uL Lymph # (Auto) (0.90-2.90) K/uL [place] # (Auto) (0.00-0.90) K/UL Eos # (Auto) (0.00-0.50) K/uL Baso # (Auto) (0.00-0.30) K/uL Abs Immat Gran (auto) (0.00-0.30) K/uL Imm/Tot Granulo (auto) % Sodium (135-149) mmol/L Potassium (3.6-5.1) mmol/L Chloride (96-114) mmol/L Carbon Dioxide (20-32) mmol/L Anion Gap (7-15) mEq/L BUN (5-24) mg/dL Creatinine (0.5-1.5) mg/dL Estimated Creat Clear Estimated GFR ml/min Glucose (60-115) mg/dL Calcium (8.4-10.6) mg/dL Magnesium (1.5-2.6) mg/dL Total Bilirubin (0.1-1.5) mg/dL Direct Bilirubin (0.0-0.5) mg/dL AST (12-35) U/L ALT (4-35) U/L Alkaline Phosphatase (40-150) U/L C-Reactive Protein (0.5-1.0) mg/dL NT-Pro-B Natriuret Pep pg/mL Total Protein (6.0-8.3) g/dL Albumin (3.3-5.0) g/dL Urine Color [place] A (Yellow) Urine Appearance Clear (Clear) Urine pH 5.0 (5.0-8.5) Ur Specific [place] 1.025 (1.000-1.030) Urine Protein 1+ A (Negative) Urine Glucose (UA) Negative (Negative) Urine Ketones Trace A (Negative) Urine Blood Negative (Negative) Urine Nitrite Negative (Negative) Urine Bilirubin 2+ A (Negative) Urine Urobilinogen 1.0 (0.2-1.0) Ur Leukocyte Esterase Negative (Negative) Urine RBC 2-5 A (0-2) Urine WBC 2-5 (0-5) Ur Squamous Epith Cells Moderate A (None-Few) Urine Bacteria Few A (None) SARS-CoV-2 (PCR) (Negative) Influenza Type A (PCR) (Negative) Influenza Type B (PCR) (Negative) RSV (PCR) (Negative) Group A Strep DNA (Not Detectd) Lab Acknowledgement Test Added Discharge Plan Discharge Clinical Impression: COVID, Neutropenia, Hyponatremia Patient Disposition: Home w/ Parent or Adult Condition: Stable Additional Instructions: We will be sending are lab results to your transplant team. Please stay in close communication with them. If you do not hear from them tomorrow I would check in with them yourself. My concern is a trend in your labs; that you are now neutropenic . I think you are likely through the worst of your COVID. Would quarantine for 10 days from 1st day of symptoms. And then continuing through 24 hours of no fever and negative COVID antigen testing. A singular blood culture is pending here. We will let you know if it is positive. Otherwise focus on hydration. Consider electrolyte drinks like Gatorade or Powerade. Could reconstitute the powder form. Prescriptions: No Action levonorgestrel 20 mcg/24 hours (7 yrs) 52 mg intrauterine device 1 device intrauterine ONCE folic acid 1 mg tablet 1 mg PO QDAY Patient Comments: TAKE 1 TABLET BY MOUTH DAILY ergocalciferol (vitamin D2) 1,250 mcg (50,000 unit) capsule 50,000 unit PO QWEEK Patient Comments: TAKE 1 CAPSULE BY MOUTH ONCE A WEEK magnesium oxide 400 mg magnesium capsule 400 mg PO BID promethazine 25 mg tablet 25 mg PO Q6H PRN ropinirole 2 mg tablet 2 mg PO QHS diazepam 5 mg tablet 5 mg PO HS furosemide 20 mg tablet 40 mg PO QAM ondansetron 8 mg tablet,disintegrating 8 mg PO TID PRN thiamine HCl (vitamin B1) 100 mg tablet 100 mg PO QDAY Patient Comments: TAKE 1 TABLET BY MOUTH DAILY pantoprazole 40 mg tablet,delayed release (DR/EC) 40 mg PO QDAY Qty: 30 5RF Patient Comments: TAKE 1 TABLET BY MOUTH DAILY Xifaxan 550 mg tablet 550 mg PO BID Qty: 60 5RF Patient Comments: TAKE 1 TABLET BY MOUTH TWICE DAILY vitamin A 10,000 unit capsule 10,000 unit PO .COMPLEX Qty: 40 3RF Rx Instructions: 10,000 units PO 3 times a week; magnesium oxide 400 mg magnesium capsule 400 mg PO BID Qty: 180 3RF zinc sulfate 50 mg zinc (220 mg) capsule 50 mg PO QDAY Qty: 90 3RF cyclobenzaprine 5 mg tablet 5 mg PO QDAY PRN (Reason: muscle spasm) Qty: 15 0RF lactulose 10 gram/15 mL solution 20 g PO TID Qty: 946 0RF spironolactone 50 mg tablet 50 mg PO QDAY Qty: 30 0RF lidocaine 5 % adhesive patch,medicated 1 patch topical QDAY Qty: 30 0RF Rx Instructions: leave on most painful area for up to 12 hrs diclofenac sodium [Voltaren Arthritis Pain] 1 % gel 2 g topical QID Qty: 100 0RF Rx Instructions: apply to single elbow, wrist or hand; for hand includes palm/fingers/back of hand cholecalciferol (vitamin D3) 10 mcg (400 unit) capsule 10 mcg PO QDAY Qty: 30 0RF acetaminophen [Tylenol Extra Strength] 500 mg tablet 500 mg PO Q6H PRN (Reason: pain) Qty: 60 0RF spironolactone 100 mg tablet 100 mg PO QDAY Follow Up/Referrals: Ana Red PA-C [Primary Care Provider] - Stand Alone Forms: [facility] Info Instructions
--- NOTE | 2023-12-14 19:32 | CRLHL7_ITS ---
For Patients: As a result of the Cures Act, medical imaging exams and procedure reports are released immediately into your electronic medical record. You may view this report before your referring provider. If you have questions, please contact your health care provider. INDICATION: Shortness of breath, chills. TECHNIQUE: Chest 1 views. COMPARISON: January 31, 2022. FINDINGS: Cardiovascular and mediastinum: Heart size and vasculature are normal in caliber and appearance. Lungs and pleural spaces: Lungs are clear. No sign of infiltrate or mass. No sign of pleural effusion. No pneumothorax. Bones and soft tissues: No significant findings. IMPRESSION: No acute or significant findings. Dictated by Brian Francisco MD @ 12/14/2023 9:04:24 PM (Electronically Signed)
[2023-12-14 19:57] LABS: Eosinophils Percent Auto 1.3 % (0.0-7.0); Hematocrit 31.3 % (33.0-51.0); Hemoglobin* 10.9 gm/dL (12.0-16.0); Mean Corpuscular HGB Conc 35 gm/dL (32-36); Mean Corpuscular Hemoglobin 28 pg (26-34); Mean Corpuscular Volume 80 fL (80-100); Neutrophils Percent Auto 23.7 % (42.0-72.0); Platelet Count* 115 K/uL (140-440); RDW Coefficient of Variation % 12.3 % (11.5-15.5)
[2023-12-14 20:13] LABS: Chloride* 97 mmol/L (96-114); Potassium* 3.9 mmol/L (3.6-5.1); Sodium* 130 mmol/L (135-149)
[2023-12-14 20:16] LABS: Est. Creatinine Clearance* 58.44; Estimated Glomerular Filt Rate 76 ml/min
[2023-12-14 20:17] LABS: Anion Gap 10 mEq/L (7-15); Blood Urea Nitrogen* 10 mg/dL (5-24); Calcium* 8.4 mg/dL (8.4-10.6); Carbon Dioxide* 23 mmol/L (20-32); Glucose* 140 mg/dL (60-115)
[2023-12-14 20:18] LABS: Slide Review Reflex No
[2023-12-14 20:20] LABS: C Reactive Protein* 1.6 mg/dL (0.5-1.0)
[2023-12-14 20:24] LABS: Strep A DNA Probe* NOT DETECTED (Not Detectd)
[2023-12-14 20:27] LABS: NT Pro B Type NatriureticPept* 297 pg/mL
[2023-12-14 20:37] LABS: PCR FLU A Negative PCR FLU A (Negative); PCR FLU B Negative PCR FLU B (Negative); PCR RSV Negative PCR RSV (Negative); SARS PCR* POSITIVE SARS-CoV-2 (Negative)
[2023-12-14 21:45] LABS: Appearance Urine Clear (Clear); Bilirubin Urine 2+ (Negative); Blood Urine Negative (Negative); Color Urine Orange (Yellow); Glucose Urine Negative (Negative); Ketones Urine Trace (Negative); Leukocyte Esterase Urine Negative (Negative); Nitrite Urine Negative (Negative); Protein Urine 1+ (Negative); Specific Gravity Urine 1.025 (1.000-1.030)
[2023-12-14] MEDS: 0.9 % SODIUM CHLORIDE 1000 ml 1,000 ML IV (21:45)
[2023-12-14 21:52] LABS: Albumin* 3.6 g/dL (3.3-5.0)
[2023-12-14 21:55] LABS: Alanine Aminotransferase* 31 U/L (4-35); Alkaline Phosphatase* 136 U/L (40-150); Aspartate Amino Transferase* 26 U/L (12-35); Bilirubin Direct* 0.5 mg/dL (0.0-0.5); Magnesium* 1.8 mg/dL (1.5-2.6)
[2023-12-14 22:08] LABS: Bacteria Urine Few; Squamous Epithelial Cell Urine Moderate (None-Few)
[2023-12-14 22:09] LABS: Fine Granular Casts Urine Few
== END 2023-12-14 23:09 | disposition home or self-care (01) ==
PROVIDERS: Emergency Provider Family Medicine; PCP Internal Medicine
DX: U07.1 COVID-19 (principal); D70.9 Neutropenia, unspecified; E87.1 Hypo-osmolality and hyponatremia
CPT/HCPCS: 36415; 71045; 80048; 80076; 81001; 83735; 83880; 85025; 86140; 87040; 87086; 87631; 87651; 99283; 99284; J7030

== ENCOUNTER 2024-02-20 21:03 | Emergency (ER) | payer BC, SELFPAY ==
[2024-02-20 21:14] VITALS: BP 106/74; PULSE 108; RESP 16; TEMP 36.4; O2SAT 100; BMI 18.6
[2024-02-20] MEDS: LIDOCAINE 1% 5 ml (pf) 5 ML VIAL 2.1 ML IM (21:40)
[2024-02-20] MEDS: cefTRIAXone 1 GM VIAL IM (21:40)
--- OUTSIDE RECORDS SUMMARY | 2024-02-20 21:45 | XMS_ITS | Encounter Summary ---
Author Organization [facility] Address [address] [place] [address] Care Team Providers Care Cuff Runner Name Role Phone Ana Red P.A.-C. Primary Care Pro vider Encounter Details Date Type Department Care Team (Latest Contact Info) Description 01/25/2024 Orders Only Ramirez Navarrete [facility] in [place], [place] [address] [place] [address] Sony Carty R.N. [address] [place] [phone] Transplant Liver (HCC) (Primary Dx); Medication Therapy Correction Not 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 Social History Tobacco Use Types Packs/Day Years Used Date Smoking Tobacco: Former Cigarettes 1 - 10/12/2021 Passive Smoke Exposure: Never Smokeless Tobacco: Never Comments:No longer smoke Alcohol Use Standard Drinks/Week Comments Not Currently 0 (1 standard drink = 0.6 oz pure alcohol) Havent had any alcohol in about a year or so. Humiliation, Afraid, Rape, and Kick questionnair e Answer Date Recorded Within the last year, have y ou been afraid of your partner or ex-partner? No 02/10/2022 Within the last year, have y ou been humiliated or emotionally abused in other ways by your partner or ex-partner? No Within the last year, have y ou been kicked, hit, slapped, or otherwise physically hurt by your partner or ex-partner? No 02/10/2022 Within the last year, have y ou been raped or forced to have any kind of sexual activity by your partner or ex-partner? No 02/10/2022 Social Connection and Isolat ion Panel [NHANES] Answer Date Recorded In a typical week, how many times do you talk on the phone with family, friends, or neighbors? More than three times a week 02/10/2022 How often do you get togethe r with friends or relatives? Once a week 02/10/2022 How often do you attend chur or alevism services? Patient declined 02/10/2022 Do you belong to any clubs o r organizations such as caodaism groups, unions, fraternal or athletic groups, or school groups? No 02/10/2022 How often do you attend meet ings of the clubs or organizations you belong to? Patient declined 02/10/2022 Are you , , di vorced, , never , or living with a partner? Living with partner 02/10/2022 AUDIT-C Answer Date Recorded Q1: How often do you have a drink containing alc ohol? Never 02/10/2022 Average Number of Drinks Not on file 022 Frequency of Binge Drinking Not on file 01/31 Overall Financial Resource Strain (CARDIA) Answe r Date Recorded How hard is it for you to pa y for the very basics like food, housing, medical care, and heating? Not hard at all 03/12/2023 PHQ-2 Answer Date Recorded PHQ-2 Score 0 06/18/2023 [facility] Occupat ional Health - Occupational Stress Questionnaire Answer Date Recorded Do you feel stress - tense, restless, nervous, or anxious, or unable to sleep at night because your mind is troubled all the time - these days? Rather much 02/10/2022 Exercise Vital Sign Answer Date Recorde d On average, how many days pe r week do you engage in moderate to strenuous exercise (like a brisk walk)? Patient declined On average, how many minutes do you engage in exercise at this level? Patient declined 03/12/2023 Hunger Vital Sign Answer Date Recorded Within the past 12 months, y ou worried that your food would run out before you got the money to buy more. Never true 03/12/20 Within the past 12 months, t he food you bought just didn't last and you didn't have money to get more. Never true 03/12/2023 PRAPARE - Transportation Answer Date Re corded In the past 12 months, has l ack of transportation kept you from medical appointments or from getting medications? No 03/03 In the past 12 months, has l ack of transportation kept you from meetings, work, or from getting things needed for daily living? No 03/12/2023 Depression Answer Date Recor ded PHQ-9 Total Score (max 27) 4 06/18 Nutrition Answer Date Recorded On average, how many serving s of fruits and vegetables do you eat per day (serving size is equal to 1 cup or approximately the size of a tennis ball)? 3-5 03/12/2023 Dental Answer Date Recorded Dental: Regular Dentist Yes 02/11/20 Employment Answer Date Recorded Employment status Temporarily disabled Housing Stability Answer Date Recorded What is your living situation today? I have a [facility] place to live 03/12/2023 Education Answer Date Recorded What is the highest level of school you have completed or the highest degree you have received? Associate degree: occupational, technical, or vocational program 07/16/2021 Comments Unknown Sex and Gender Information Value Date Recorded Sex Assigned at Female 04/12/2021 7:39 PM ACCOUNTS PAYABLE PROCESSOR Legal Sex Female 7:53 PM ACCOUNTS PAYABLE PROCESSOR Gender Identity Female 04/12/2021 7:39 PM ACCOUNTS PAYABLE PROCESSOR Sexual Orientation Straight 04/12/2021 7: 39 PM ACCOUNTS PAYABLE PROCESSOR documented as of this encounter Plan of Treatment Upcoming Encounters Date Type Department Care Team (Late st Contact Info) Description 02/23/2024 8:20 AM CDT Appointment Department of Laboratory Medicine in [address] [phone] Noreen Ansari P.A.-C., M.S. [address] [place] [address] 04/06/2024 2:30 PM ACCOUNTS PAYABLE PROCESSOR Clinical Communication Virtual Review in [place], [place] 200 [place] [phone] 04/07/2024 3:00 PM ACCOUNTS PAYABLE PROCESSOR Comprehensive Visit Department of Spine in [place], [place] [address] [place] [phone] Faviola Jiang, YARITZA, C.N.P., M.S.N. [address] [place] [phone] documented as of this encounter Results * Prothrombin Time (PT) (01/26/2024 11:38 AM CDT) Prothrombin Time, P 12.2 9.4 - 12.5 sec 01/26/2024 12:51 PM CDT DTL INR 1.1 0.9 - 1.1 01/26/2024 12:51 PM CDT DTL Comment: ----ADDITIONAL INFORMATION---- Standard intensity warfarin therapeutic range: 2.0 to 3.0 ?? High intensity warfarin therapeutic range: 2.5 to 3.5 Blood (Blood, Venous) 01/26/2024 11:38 AM CDT 01/26/2024 12:27 PM CDT Hiro Murillo P.A.-C. LAB BLOOD ADD-ON Final Re sult [facility] [address] [place] [address], [facility] DTL [facility] [address] [place] [address] * Tacrolimus, Trough (01/26/2024 11:38 AM CDT) Pathologist [facility] Tacrolimus, Trough 8.2 5.0-15.0 (Trough) ng/mL 01/26/2024 5:41 PM CDT [facility] Comment: ----ADDITIONAL INFORMATION---- Target steady-state trough concentrations vary depending on the type of transplant, concomitant immunosuppression, clinical/institutional protocols, and time post-transplant. Results should be interpreted in conjunction with this clinical information and any physical signs/symptoms of rejection/toxicity. Testing performed by Liquid Chromatography-Tandem Mass Spectrometry (LC-MS/MS). This test was developed and its performance characteristics determined by [facility] in a manner consistent with CLIA requirements. This test has not been cleared or approved by the U.S. Food and Drug Administration. Blood (Blood, Venous) 01/26/2024 11:38 AM CDT 01/26/2024 2:47 PM CDT us Hiro Murillo P.A.-C. LAB BLOOD NON ADD-ON Lupe l Result [facility] [address] [place] [address] [facility] [address] [place] [address] [place] [address] * (ABNORMAL) Comprehensive Metabolic Panel (01/26/2024 11:38 AM CDT) [facility] Potassium, S 4.3 3.6 - 5.2 mmol/L 01/26/2024 3:59 PM CDT DTL Sodium, S 140 135 - 145 mmol/L 01/26/2024 3:59 PM CDT DTL Chloride, S 105 98 - 107 mmol/L 01/26/2024 3:59 PM CDT DTL Bicarbonate, S 22 22 - 29 mmol/L 01/26/2024 3:59 PM CDT DTL Anion Gap 13 7 - 15 01/26/2024 3:59 PM CDT DTL BUN (Blood Urea Nitrogen), S 6 6 - 21 mg/dL 01/26/2024 3:59 PM CDT DTL Creatinine 0.73 0.59 - 1.04 mg/dL 01/26/2024 3:59 PM CDT DTL Estimated GFR (eGFR) >90 >=60 mL/min/BS A 01/26/2024 3:59 PM CDT DTL Comment: Estimated GFR calculated using the 2020 CKD_EPI creatinine equation. Calcium, Total, S 9.0 8.6 - 10.0 mg/dL 01/26/2024 3:59 PM CDT DTL Glucose, S 169(H) 70 - 140 mg/dL 01/26/2024 3:59 PM CDT DTL Protein, Total, S 6.8 6.3 - 7.9 g/dL 01/26/2024 3:59 PM CDT DTL Albumin, S 3.9 3.5 - 5.0 g/dL 01/26/2024 3:59 PM CDT DTL Aspartate Aminotransferase (AST), S 44(H) 8 - 43 U/L 01/26/2024 3:59 PM CDT DTL Alkaline Phosphatase, S 225(H) 35 - 104 U/L 01/26/2024 3:59 PM CDT DTL Alanine Aminotransferase (ALT), S 44 7 - 45 U/L 01/26/2024 3:59 PM CDT DTL Bilirubin, Total, S 0.4 0.0 - 1.2 mg/dL 01/26/2024 3:59 PM CDT DTL Blood (Blood, Venous) 01/26/2024 11:38 AM CDT 01/26/2024 3:22 PM CDT Hiro Murillo P.A.-C. LAB BLOOD ADD-ON Final Re sult [address] [address], [facility] [place] [address] * CMV DNA Detect / Quant, Plasma (01/26/2024 11:38 AM CDT) [facility] CMV DNA Detect/Quant, P Undetected Undetected IU/mL 01/27/2024 2:13 PM CDT [facility] Comment: Result in log IU/mL is Undetected. ----ADDITIONAL INFORMATION---- The quantification range of this assay is 35 to 10,000,000 IU/mL (1.54 log to 7.00 log IU/mL). Testing was performed using the john CMV test ([employer] Blood (Blood, Venous) 01/26/2024 11:38 AM CDT 01/26/2024 5:02 PM CDT us Hiro Murillo P.A.-C. LAB MICROBIOLOGY - BLOOD ORDERABLES Final Result Performing Organization Address City/[facility]/ZIP Co de Phone Number [facility] [address] [place] [address] [facility] [address] [place] [address] [place] [address] * Bilirubin, Direct (01/26/2024 11:38 AM CDT) Pathologist [facility] Bilirubin, Direct, S <0.2 0.0 - 0.3 mg/dL 01/26/2024 3:59 PM CDT DTL Blood (Blood, Venous) 01/26/2024 11:38 AM CDT 01/26/2024 3:22 PM CDT us Hiro Murillo P.A.-C. LAB BLOOD ADD-ON Final Re sult Performing Organization Address City/[facility]/ZIP Co de Phone Number [facility] [address] [place] [address], [facility] [address] [place] [address] * (ABNORMAL) CBC with Differential, Blood (01/26/2024 11:38 AM CDT) Pathologist [facility] Hemoglobin 12.9 11.6 - 15.0 g/dL 01/26/2024 1:02 PM CDT DTL Hematocrit 39.0 35.5 - 44.9 % 01/26/2024 1:02 PM CDT DTL Erythrocytes 4.64 3.92 - 5.13 x10(12)/L 01/26/2024 1:02 PM CDT DTL MCV 84.1 78.2 - 97.9 fL 01/26/2024 1:02 PM CDT DTL RBC Distrib Width 14.3 12.2 - 16.1 % 01/26/2024 1:02 PM CDT DTL Platelet Count 179 157 - 371 x10(9)/L 01/26/2024 1:02 PM CDT DTL Leukocytes 3.0(L) 3.4 - 9.6 x10(9)/L 01/26/2024 1:02 PM CDT DTL Neutrophils 1.94 1.56 - 6.45 x10(9)/L 01/26/2024 1:02 PM CDT [facility] Lymphocytes 0.83(L) 0.95 - 3.07 x10(9)/L 01/26/2024 1:02 PM CDT DTL Monocytes 0.21(L) 0.26 - 0.81 x10(9)/L 01/26/2024 1:02 PM CDT DTL Eosinophils <0.03 0.03 - 0.48 x10(9)/L 01/26/2024 1:02 PM CDT DTL Basophils <0.03 0.01 - 0.08 x10(9)/L 01/26/2024 1:02 PM CDT DTL Blood (Blood, Venous) 01/26/2024 11:38 AM CDT 01/26/2024 12:27 PM CDT Hiro Murillo P.A.-C. LAB BLOOD ADD-ON Final Re sult [facility] [address] [place] [address], [facility] DTL [facility] [address] [place] [address] DHPM 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 [address] [place] [address] [place] [phone] PCP - General Internal Medicine 12/01/21 [facility] 08/25/21 documented as of this encounter
--- OUTSIDE RECORDS SUMMARY | 2024-02-20 21:45 | XMS_ITS | Encounter Summary ---
Author Organization [facility] Address [address] [place] [address] Care Team Providers Care Wire Mesh Gate Assembler Name Role Phone Ana Red, P.A.-C. Primary Care Pro vider Reason for Visit * Reason Comments Med Refill Encounter Details Date Type Department Care Team (Late st Contact Info) Description 02/15/2024 Refill Department of Community Internal Medicine in [place], [place] [address] [place] [phone] Ana Red MPAS, P.A.-C. [address] [place] [phone] Med Refill Social History Tobacco Use Types Packs/Day Years [...] How often do you attend chur or adventist services? Patient declined 02/10/2022 Do you belong to any clubs o r organizations such as religious groups, unions, fraternal [...] Answer Date Recorded PHQ-2 Score 0 06/18/2023 [facility] [place] of Occupat ional Health - Occupational Stress [...] money to buy more. Never true 03/12/20 23 Within the past 12 months, t he [...] your living situation today? I have a [facility] place to live 03/12/2023 Education Answer Date Recorded What is the highest level of school you have completed or the highest degree you have received? Associate degree: occupational, technical, or vocational program 07/16/2021 Comments No Sex and Gender Information Value Date Recorded Sex Assigned at Female 04/12/2021 7:39 PM HEEL ROOM SUPERVISOR Legal Sex Female 7:53 PM HEEL ROOM SUPERVISOR Gender Identity Female 04/12/2021 7:39 PM HEEL ROOM SUPERVISOR Sexual Orientation Straight 04/12/2021 7: 39 PM HEEL ROOM SUPERVISOR documented as of this encounter Plan of Treatment Upcoming Encounters Date Type Department Care Team (Late st Contact Info) Description 02/23/2024 8:20 AM CDT Appointment Department of Laboratory Medicine in [place] [address] [place] [phone] Noreen Ansari P.A.-C., M.S. [address] [place] [phone] 04/06/2024 2:30 PM HEEL ROOM SUPERVISOR Clinical Communication Virtual Review in [place], [place] 200 [place] [address] 04/07/2024 3:00 PM HEEL ROOM SUPERVISOR Comprehensive Visit Department of Spine in [place], [place] [address] [place] [phone] Faviola Jiang, YARITZA, C.N.P., M.S.N. 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 300 [facility] [place] [address] PCP - General Internal Medicine 12/01/21 [facility] 08/25/21 documented as of this encounter
--- OUTSIDE RECORDS SUMMARY | 2024-02-20 21:45 | XMS_ITS | Encounter Summary ---
Author Organization [facility] Address [address] [place] [address] Care Team Providers Care Mystery Shopper Name Role Phone Ana Red P.A.-C. Primary Care Pro vider Encounter Details Date Type Department Care Team (Late st Contact Info) Description 02/20/2024 Documentation Division of Gastroenterology in [place], [place] [address] [place] [phone] Edgar Montgomery M.B.B.S., M.S. [address] [place] [phone] Social History Tobacco Use Types Packs/Day Years [...] How often do you attend chur or catholic services? Patient declined 02/10/2022 Do you belong to any clubs o r organizations such as pentecostal groups, unions, fraternal [...] Answer Date Recorded PHQ-2 Score 0 06/18/2023 [facility] of Occupat ional Health - Occupational Stress [...] your living situation today? I have a [facility] place to live 03/12/2023 Education Answer Date Recorded What is the highest level of school you have completed or the highest degree you have received? Associate degree: occupational, technical, or vocational program 07/16/2021 Comments No Sex and Gender Information Value Date Recorded Sex Assigned at Female 04/12/2021 7:39 PM CENTRAL OFFICE OPERATOR Legal Sex Female 7:53 PM CENTRAL OFFICE OPERATOR Gender Identity Female 04/12/2021 7:39 PM CENTRAL OFFICE OPERATOR Sexual Orientation Straight 04/12/2021 7: 39 PM CENTRAL OFFICE OPERATOR documented as of this encounter Progress Notes * Edgar Montgomery M.B.B.S., M.S. - 02/20/2024 5:07 PM CDT As the on-call liver transplant fellow received a call from this patient who expressed the following concerns. --left-sided facial swelling for the past 2-2.5 weeks. --nausea and vomiting and poor oral intake. --she even reports on and off fever for the same duration and T-max 101.3??. --at some point was on amoxicillin but stopped it due to worsening nausea and vomiting. --she denied rigors or chills. I explained to the patient the limited nature of our phone encounter. I asked her for future reference to contact the clinic when she develops similar symptoms, as these could indicate infection. Since I am unable to assess her, I advised that she gets assessed locally by going to the ED. she will contact the transplant Clinic tomorrow and I am going to forward a copy of this note to them. Patient express understanding and agreement with the proposed care plan. documented in this encounter Plan of Treatment Upcoming Encounters Date Type Department Care Team (Late st Contact Info) Description 02/23/2024 8:20 AM CDT Appointment Department of Laboratory Medicine in [address] [phone] Noreen Ansari P.A.-C., M.S. [address] [place] [phone] 04/06/2024 2:30 PM CENTRAL OFFICE OPERATOR Clinical Communication Virtual Review in [place], [place] 200 [place] [phone] 04/07/2024 3:00 PM CENTRAL OFFICE OPERATOR Comprehensive Visit Department of Spine in [address] [phone] Faviola Jiang APRN, C.N.P., M.S.N. 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 300 [facility] [place] [phone] PCP - General Internal Medicine 12/01/21 [facility] 08/25/21 documented as of this encounter
--- OUTSIDE RECORDS SUMMARY | 2024-02-20 21:45 | XMS_ITS | Encounter Summary ---
Author Organization [facility] Address [address] [place] [address] Care Team Providers Care Meter Setter Name Role Phone Ana Red P.A.-C. Primary Care Pro vider Reason for Referral * Outpatient (Routine) - Authorized Specialty Diagnoses / Procedures Referred By Meir lara Referred To Contact Diagnoses Pain Neck Mechanical Procedures US Head Neck Soft Tissue Ana eRd MPAS, P.A.-C. [address] [place] [address] Phone: tel: fax: [facility] Region Referral ID Status Reason Start Date Expiration Date V isits Requested Visits Authorized [id number] Authorized 02/02/2024 02/01/2025 1 1 Reason for Visit * Reason Comments Follow-up Feeling nauseous X 1 week * Outpatient (Routine) - Closed Specialty Diagnoses / Procedures Referred By Meir lara Referred To Contact [facility] Ana Red MPAS, P.A.-C. [address] [place] [address] Phone: tel: fax: [facility] Region Referral ID Status Reason Start Date Expiration Date Visits Re quested Visits Authorized [id number] Closed 12/02/2023 06/02/2025 1 1 Encounter Details Date Type Department Care Team (Kenneth st Contact Info) Description 02/02/2024 8:40 AM CDT Office Visit Department of Community Internal Medicine in [place], [place] [address] [place] [phone] Ana Red MPAS, P.A.-C. 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 Patient declined 02/10/2022 Do you belong to any clubs o r organizations such as rastafarian groups, unions, fraternal [...] Answer Date Recorded PHQ-2 Score 0 06/18/2023 [facility] - [...] your living situation today? I have a [facility] place to live 03/12/2023 Education Answer Date Recorded What is the highest level of school you have completed or the highest degree you have received? Associate degree: occupational, technical, or vocational program 07/16/2021 Comments No Sex and Gender Information Value Date Recorded Sex Assigned at Female 04/12/2021 7:39 PM COURSE DEVELOPER Legal Sex Female 7:53 PM COURSE DEVELOPER Gender Identity Female 04/12/2021 7:39 PM COURSE DEVELOPER Sexual Orientation Straight 04/12/2021 7: 39 PM COURSE DEVELOPER documented as of this encounter Last Filed Vital Signs Vital Sign Reading Time Taken Comments Blood Pressure 89/65 02/02/2024 8:36 AM CDT Pulse 85 02/02/2024 8:36 AM CDT Temperature 36.5 ??C (97.7 ??F) 02/02/2024 8:36 AM CD T Respiratory Rate - - Oxygen Saturation - - Inhaled Oxygen Concentration - - Weight 42.8 kg (94 lb 5.7 oz) 02/02/2024 8:36 AM CDT Height 150 cm (4' 11.06) 02/02/2024 8:36 AM CDT Body Mass Index 19.02 02/02/2024 8:36 AM CDT documented in this encounter Progress Notes * Ana Red, RORO, P.A.-C. - 02/02/2024 8:40 AM CDT SUBJECTIVE CHIEF COMPLAINT/REASON FOR VISIT Chief Complaint Patient presents with Follow-up Feeling nauseous X 1 week HISTORY OF PRESENT ILLNESS Catia Carias is a pleasant 33 y.o. female who presents to the clinic today for follow up for chronic low back pain. She was able to schedule a consult with [facility] [place] however thisunfortunately is not scheduled until April. She has not participated in physical therapy as recommended at previous visit as she did not find this beneficial when she was previously enrolled in PTprior to liver transplant. She did not use external referral for non[facility] that I provided at previous clinic visit. She wonders about a dose increase in Suboxone for her back pain. She finds her current dose helpful some days but not others. She has concern of feeling off since her hospitalization 2 months ago with intermittent abdominalpain, nausea, vomiting, and headache. Abdominal pain is located centrally with radiation to either left or right side of abdomen. Her last episode of vomiting was yesterday. She questions recurrence of pancreatic stones. She also had neck tenderness which is predominately located anteriorly and follows a similar timeline to above symptoms. She does not note significant difficulty with chewing or swallowing. She feels as though she cannot take a deep breath but was told her lungs look fine during her hospitalization. Denies change in bowels. She has Zofran at home to use for nausea but is wondering if this can be transitioned to Compazine as she feels this works better for her. She is unableto identify triggers to for her abdominal pain. She says she is not eating regularly due to the abdominal pain. The following portions of the patient's history were reviewed and updated as appropriate: current medications and problem list. Patient Active Problem List Diagnosis Anemia Macrocytic Anxiety Generalized Disorder Alcoholic Cirrhosis Of Liver With Ascites (HCC) Gastroesophageal Reflux Disease Without Esophagitis Hepatic Failure Unspecified Without Coma (HCC) Pancreatitis Chronic (HCC) Rhinitis Allergic Patent Foramen Ovale (HCC) Moderate Or Severe Use Disorder (Dependence) Alcohol Remission (HCC) Thrombocytopenia (HCC) Deficiency Coagulation Acquired (HCC) Deficiency Vitamin A Smoking Tobacco Use Personal History Chronic Pain Syndrome Esophageal Varices Without Bleeding (HCC) Restless Leg Syndrome Deficiency Vitamin D Atelectasis Splenomegaly Congestive Chronic Cirrhosis Alcoholic (HCC) Alcoholic Hepatitis Without Ascites (HCC) Fracture Lumbar Third Wedge Compression Closed Initial (HCC) Fracture T11-12 Wedge Compression Closed Initial (HCC) Lumbago With Sciatica Left Side Cannabis Moderate Or Severe Use Disorder (Dependence) Uncomplicated (HCC) Hepatic Encephalopathy (HCC) Hypertension Portal (HCC) Moderate Or Severe Use Disorder (Dependence) Drug Cannabis Remission (HCC) Hemorrhage Gastrointestinal End Stage Liver Disease (HCC) Transplant Liver (HCC) Anemia Posthemorrhagic Acute (Blood Loss Anemia) Stone Pancreatic Duct Pancreatitis Post Endoscopic Retrograde Cholangiopancreatography (HCC) Osteoporosis Immunodeficiency Due To Drugs (HCC) Fracture Vertebra Compression Thoracic Closed Subsequent COVID-19 Infection ALLERGIES/CONTRAINDICATIONS Allergies Allergen Reactions Azithromycin Nausea And Vomiting and GI intolerance CURRENT MEDICATIONS Current Outpatient Medications: acetaminophen (TYLENOL) 500 mg tablet, Take 1 tablet (500 mg total) by mouth every 6 (six) hours asneeded for pain., Disp: 100 tablet, Rfl: 11 aspirin 81 mg chewable tablet, Chew 1 tablet (81 mg total) daily., Disp: 90 tablet, Rfl: 3 buprenorphine-naloxone (Suboxone) 8-2 mg per SL tablet, Place 1 tablet under the tongue daily., Disp: 28 tablet, Rfl: 0 cholecalciferol (Vitamin D3) 50 mcg (2,000 Unit) tablet, Take 1 tablet (50 mcg total) by mouth daily., Disp: 90 tablet, Rfl: 3 diclofenac sodium (VOLTAREN) 1 % gel, Apply 2 g topically 4 (four) times a day. Apply to abdomen orother areas of pain., Disp: 200 g, Rfl: 3 gabapentin (Neurontin) 300 mg capsule, TAKE 1 CAPSULE BY MOUTH THREE TIMES DAILY WITH AN [id number] MG CAPSULE AT BEDTIME, Disp: 90 capsule, Rfl: 2 levonorgestreL (MIRENA) 21 mcg/24 hours (8 yrs) 52 mg IUD, 1 Intra Uterine Device (1 each total) byintrauterine route continuously. Inserted 07/31/2022., Disp: 1 each, Rfl: 0 lidocaine (SALONPAS) 4 % adhesive patch,medicated, Place 1 patch on the skin daily. Apply to painful areas., Disp: , Rfl: multivitamin tablet, Take 1 tablet by mouth daily., Disp: 30 tablet, Rfl: 3 ondansetron (Zofran) 4 mg tablet, Take 1 tablet (4 mg total) by mouth every 6 (six) hours as neededfor nausea or vomiting., Disp: 30 tablet, Rfl: 0 pantoprazole (Protonix) 40 mg EC tablet, Take 1 tablet (40 mg total) by mouth every morning before breakfast., Disp: 90 tablet, Rfl: 3 tacrolimus (PROGRAF) 0.5 mg capsule, Take 1 capsule (0.5 mg total) by mouth 2 (two) times a day Indications: liver transplant rejection prevention. With 1mg caps for total 3.5mg twice daily, Disp: 180 capsule, Rfl: 3 teriparatide (Forteo) 20 mcg/dose (600mcg/2.4mL) injection, Inject 0.08 mL (20 mcg total) under theskin daily., Disp: 2.4 mL, Rfl: 11 traZODone (DesyreL) 50 mg tablet, TAKE 3 TABLETS(150 MG) BY MOUTH AT BEDTIME, Disp: 180 tablet, Rfl: 3 triamcinolone (Nasacort) 55 mcg/actuation nasal spray, Administer 2 sprays into each nostril daily., Disp: 16.5 mL, Rfl: 11 buprenorphine-naloxone (Suboxone) 2-0.5 mg per SL tablet, Place 2 tablets under the tongue daily. Take in addition to Suboxone 8-2 mg daily., Disp: 56 tablet, Rfl: 0 tacrolimus (PROGRAF) 1 mg capsule, Take 3 capsules (3 mg total) by mouth 2 (two) times a day Indications: liver transplant rejection prevention. With 0.5mg caps for total 3.5mg twice daily, Disp: 540capsule, Rfl: 3 OBJECTIVE VITAL SIGNS Vitals: 02/02/24 0836 BP: (!) 89/65 Pulse: 85 Temp: 36.5 ??C PHYSICAL EXAMINATION General: Well-nourished, well-developed 33 y.o. in no apparent distress. Awake, alert, age appropriate. HEENT: TM's are normal bilaterally. Neck: Neck is without lymphadenopathy but generalized discomfort with palpation of anterior and lateral neck. Cardiovascular: Regular rate and rhythm without murmurs. Lungs: Clear to auscultation bilaterally with no adventitious sounds Abdomen: Generalized discomfort to palpation throughout abdomen most notable in umbilical region and right upper quadrant. Neurologic: Alert and oriented x3. ASSESSMENT / PLAN IMPRESSION/REPORT/PLAN: #1 Chronic Pain Syndrome #2 Pain Low Back Chronic #3 Multiple Compression Fractures Interventions discussed at previous clinic visit for chronic low back pain included enrollment in physical therapy and external referral to Pain Clinic along with dose increase in Suboxone. She decided not to pursue physical therapy or external Pain Clinic. We will increase Suboxone today from 8 -2mg to total dose of 12-3 mg. She will take 2 tablets of Suboxone 2 - 0.5 mg in addition to 8 -2 mg tablet she is already taking. She has a visit scheduled with [facility] [place] in April 2024. #4 Pain Neck Generalized discomfort and tenderness to palpation throughout anterior and lateral neck. No lymphadenopathy appreciated on exam. Head and neck ultrasound has been ordered as first available. - US Head Neck Soft Tissue; Future; Expected date: 02/02/2024 #5 Nausea #6 Abdominal Pain #7 Vomiting #8 Headache #9 Transplant Liver (HCC) Intermittent poorly localized abdominal pain ongoing since hospitalization December 2023 (6 weeks ago) associated with nausea,vomiting, and headache. CBC obtained last week with no evidence of infection. Liver function testing with stable elevation in alkaline phosphatase and slight new elevation in AST since hospital discharge. Patient has a history of chronic pancreatitis and pancreatic stones. Ireached out to Liver Transplant team to coordinate care. They will plan to follow up with patient regarding these symptoms. Other orders - [facility] office visit (clinic) - buprenorphine-naloxone (Suboxone) 2-0.5 mg per SL tablet; Place 2 tablets under the tongue daily.Take in addition to Suboxone 8-2 mg daily., Starting 02/02/2024, Normal - ondansetron (Zofran) 4 mg tablet; Take 1 tablet (4 mg total) by mouth every 6 (six) hours as needed for nausea or vomiting., Starting 02/02/2024, Normal If symptoms worsen or do not improve, patient is instructed to seek further medical attention. All questions have been answered. Patient demonstrated understanding and verbalized agreement with the plan. Total time spent: 40 minutes. RORO Tabares, P.A.-C. documented in this encounter Plan of Treatment Upcoming Encounters Date Type Department Care Team (Late st Contact Info) Description 02/23/2024 8:20 AM CDT Appointment Department of Laboratory Medicine in [address] [phone] Noreen Ansari P.A.-C., M.S. [address] [place] [address] 04/06/2024 2:30 PM COURSE DEVELOPER Clinical Communication Virtual Review in [place], [place] [address] [place] [phone] 04/07/2024 3:00 PM COURSE DEVELOPER Comprehensive Visit Department of Spine in [place], [place] [address] [place] [phone] Faviola Jiang, YARITZA, C.N.P., M.S.N. 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 [address] [place] [phone] PCP - General Internal Medicine 12/01/21 [facility] 08/25/21 documented as of this encounter
--- OUTSIDE RECORDS SUMMARY | 2024-02-20 21:45 | XMS_ITS | Encounter Summary ---
Author Organization [facility] Address [address] [place] [address] Care Team Providers Care Admitting Supervisor Name Role Phone Ana Red P.A.-C. Primary Care Pro vider Reason for Visit * Reason Onset Date Comments Phone Contact 02/16/2024 Encounter Details Date Type Department Care Team (Latest Contact Info) Description 02/16/2024 Clinical Communication Ramirez diaz [facility] in [place], [place] [address] [place] [phone] August, Sony Mendez R.N. [address] [place] [address] Phone Contact Social History Tobacco Use Types Packs/Day Years [...] week 02/10/2022 How often do you attend [facility] or sabianist services? Patient declined 02/10/2022 Do you belong to any clubs o r organizations such as christian groups, unions, fraternal [...] Date Recorded PHQ-2 Score 0 06/18/2023 [facility] - [...] your living situation today? I have a [facility] place to live 03/12/2023 Education Answer Date Recorded What is the highest level of school you have completed or the highest degree you have received? Associate degree: occupational, technical, or vocational program 07/16/2021 Comments No Sex and Gender Information Value Date Recorded Sex Assigned at Female 04/12/2021 7:39 PM PROFESSOR OF BUSINESS Legal Sex Female 7:53 PM PROFESSOR OF BUSINESS Gender Identity Female 04/12/2021 7:39 PM PROFESSOR OF BUSINESS Sexual Orientation Straight 04/12/2021 7: 39 PM PROFESSOR OF BUSINESS documented as of this encounter Miscellaneous Notes * Telephone Encounter - Esteban Funes M.B.B.S. - 02/16/2024 4:46 PM CDT Returned a call to the dentist. They had a question about the patients heart murmer. I reviewed theecho from 2021 that shows NO valvular heart disease. documented in this encounter Plan of Treatment Upcoming Encounters Date Type Department Care Team (Late st Contact Info) Description 02/23/2024 8:20 AM CDT Appointment Department of Laboratory Medicine in [place], [place] [address] [place] [phone] Noreen Ansari P.A.-C., M.S. [address] [place] [phone] 04/06/2024 2:30 PM PROFESSOR OF BUSINESS Clinical Communication Virtual Review in [place], [place] [address] [place] [address] 04/07/2024 3:00 PM PROFESSOR OF BUSINESS Comprehensive Visit Department of Spine in [place], [place] [address] [place] [phone] Faviola Jiang, YARITZA, C.N.P., M.S.N. 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 [address] [place] [phone] PCP - General Internal Medicine 12/01/21 [facility] 08/25/21 documented as of this encounter
--- OUTSIDE RECORDS SUMMARY | 2024-02-20 21:45 | XMS_ITS | Clinical Summary ---
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 Primary Care Pro vider Source Comments Patient records contain information from all sites at [facility]. For routine questions regarding patient records, call [phone] during business hours, M-F 8:00 AM - 5:00 PM Central Time. Record requests for emergency care only can be directed to [phone] at any time.[facility] Allergies Active Allergy Reactions Criticality Noted Date Comments Azithromycin Nausea And Vomiting,GI intolerance Low 05/07/2016 Medications * This document contains information received from the source organization and may not represent a complete record from that organization. lidocaine (SALONPAS) 4 % adhesive patch,medicated Place 1 patch on the skin daily. Apply to painful areas. 023 Active levonorgestreL (MIRENA) 21 mcg/24 hours (8 yrs) 52 mg IUD 1 Intra Uterine Device (1 each total) by intrauterine route continuously. Inserted 07/31/2022. 1 each 023 Active multivitamin tablet Take 1 tablet by mouth daily. 30 tablet 3 023 Active acetaminophen (TYLENOL) 500 mg tablet Take 1 tablet (500 mg total) by mouth every 6 (six) hours as needed for pain. 100 tablet Active aspirin 81 mg chewable tablet Chew 1 tablet (81 mg total) daily. 90 tablet 023 Active diclofenac sodium (VOLTAREN) 1 % gel Apply 2 g topically 4 (four) times a day. Apply to abdomen or other areas of pain. 200 g Active tacrolimus (PROGRAF) 1 mg capsuleIndicatio ns:prevention of liver transplant rejection Take 3 capsules (3 mg total) by mouth 2 (two) times a day Indications: liver transplant rejection prevention. With 0.5mg caps for total 3.5mg twice daily 540 capsule 024 2024 Active tacrolimus (PROGRAF) 0.5 mg capsuleIndicatio ns:prevention of liver transplant rejection Take 1 capsule (0.5 mg total) by mouth 2 (two) times a day Indications: liver transplant rejection prevention. With 1mg caps for total 3.5mg twice daily 180 capsule 024 2024 Active triamcinolone (Nasacort) 55 mcg/actuation nasal spray Administer 2 sprays into each nostril daily. 16.5 mL Active cholecalciferol (Vitamin D3) 50 mcg (2,000 Unit) tablet Take 1 tablet (50 mcg total) by mouth daily. 90 tablet Active pantoprazole (Protonix) 40 mg EC tabletIndication s:Transplant Liver (HCC),Gastroesop hageal Reflux Disease Without Esophagitis Take 1 tablet (40 mg total) by mouth every morning before breakfast. 90 tablet 024 Active teriparatide (Forteo) 20 mcg/dose (600mcg/2.4mL) injection Inject 0.08 mL (20 mcg total) under the skin daily. 2.4 mL Active traZODone (DesyreL) 50 mg tablet TAKE 3 TABLETS(150 MG) BY MOUTH AT BEDTIME 180 tablet 3 Active buprenorphine-na loxone (Suboxone) 8-2 mg per SL tablet Place 1 tablet under the tongue daily. 28 tablet Active buprenorphine-na loxone (Suboxone) 2-0.5 mg per SL tablet Place 2 tablets under the tongue daily. Take in addition to Suboxone 8-2 mg daily. 56 tablet Active ondansetron (Zofran) 4 mg tabletIndication s:Nausea,Transpl ant Liver (HCC),Medication Therapy Sales And Marketing Agent Not 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 Take 1 tablet (4 mg total) by mouth every 6 (six) hours as needed for nausea or vomiting. 30 tablet Active gabapentin (Neurontin) 300 mg capsuleIndicatio ns:Neuropathy TAKE 1 CAPSULE BY MOUTH THREE TIMES DAILY WITH AN ADDITIONAL 300MG CAPSULE AT BEDTIME 360 capsule 2 Active amoxicillin (AmoxiL) 500 mg tablet Take 1 tablet (500 mg total) by mouth 3 (three) times a day for 7 days. 21 tablet 024 2023 Active acetaminophen (TylenoL 8 Hr) 650 mg ER tablet Take 1 tablet (650 mg total) by mouth every 8 (eight) hours. 20 tablet Active venlafaxine (Effexor) 75 mg 24 hr tablet Take 1 tablet (75 mg total) by mouth daily with breakfast for 14 days, THEN 2 tablets (150 mg total) daily with breakfast. 90 tablet 3 024 2023 Discontinued(N on-compliance) gabapentin (Neurontin) 300 mg capsuleIndicatio ns:Neuropathy TAKE 1 CAPSULE BY MOUTH THREE TIMES DAILY WITH AN ADDITIONAL 300 MG CAPSULE AT BEDTIME 90 capsule 2 024 2023 Discontinued ondansetron (Zofran) 4 mg tabletIndication s:Transplant Liver (HCC),Medication Therapy Sales And Marketing Agent Not 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,Na usea Take 1 tablet (4 mg total) by mouth every 6 (six) hours as needed for nausea or vomiting. 30 tablet 024 2023 Discontinued(R eorder) Active Problems Problem Noted Date Diagnosed Date COVID-19 Infection 12/17/2023 Fracture Vertebra Compression Thoracic Closed Donohue bsequent 09/20/2023 Immunodeficiency Due To Drugs 08/06/2023 Osteoporosis 02/16/2023 Stone Pancreatic Duct 11/17/2022 Pancreatitis Post Endoscopic Retrograde Cholangiopancreatography 11/17/2022 Transplant Liver 10/11/2022 Anemia Posthemorrhagic Acute (Blood Loss Anemia) 10/11/2022 End Stage Liver Disease 10/10/2022 Hemorrhage Gastrointestinal 09/26/2022 Moderate Or Severe Use Disor ijeoma (Dependence) Drug Cannabis Remission 06/19/2022 Cannabis Moderate Or Severe Use Disorder (Dependence) Uncomplicated 03/27/2022 Fracture Lumbar Third Wedge Compression Closed I nitial 02/27/2022 Fracture T11-12 Wedge Compression Closed Initial 02/27/2022 Hepatic Encephalopathy 02/19/2022 Lumbago With Sciatica Left Side 02/09/2022 Alcoholic Hepatitis Without Ascites 02/08/2022 Hypertension Portal 02/08/2022 Restless Leg Syndrome 02/01/2022 Deficiency Vitamin D 02/01/2022 Esophageal Varices Without Bleeding 01/28/2022 Cirrhosis Alcoholic 12/10/2021 Overview (02/09/2022): Added automatically from request for surgery [id number] Smoking Tobacco Use Personal History 10/10/2021 Overview (01/20/2022): Quit smoking spring 2021. Chronic Pain Syndrome 10/10/2021 Deficiency Vitamin A 10/08/2021 Deficiency Coagulation Acquired 07/07/2021 Overview (07/07/2021): Added automatically from request for surgery [id number] Thrombocytopenia 07/01/2021 Patent Foramen Ovale 03/19/2021 Overview (11/18/2023): Echocardiogram August 2021: Positive for atrial level shunt by agitated saline contrast injection. Patent foramen ovale with [id number] shunt , 20 or greater bubbles seen in the left-sided chambers Anemia Macrocytic 03/12/2021 Hepatic Failure Unspecified Without Coma 021 Alcoholic Cirrhosis Of Liver With Ascites 2020 Pancreatitis Chronic 01/23/2021 Gastroesophageal Reflux Disease Without Esophagi tis 09/30/2018 Anxiety Generalized Disorder 01/19/2012 Rhinitis Allergic 04/06/2006 Moderate Or Severe Use Disor ijeoma (Dependence) Alcohol Remission Overview (01/20/2022): Patient reports being sober for approximately two years as of Fall 2021. Atelectasis Splenomegaly Congestive Chronic Resolved Problems Problem Noted Date Diagnosed Date Resolved Date Pain Epigastric 09/20/2023 11/18/2023 Diabetes Mellitus NOS 10/19/20222023 Nicotine Dependence Cigarettes In Remission 06/19/2022 06/19/2022 Anemia 04/21/2022 06/25/2022 Abdominal Pain 03/22/2022 06/25/2022 Anemia 03/13/2022 06/25/2022 Weakness General 03/06/2022 06/25/2022 Sepsis 03/06/2022 03/08/2022 Epistaxis 02/27/2022 06/25/2022 Pain Leg 02/27/2022 06/25/2022 Chronic Kidney Disease Stage 4 Glomerular Filtration Rate 15-29 02/27/2022 06/25/2022 Pneumonia 02/21/2022 11/10/2022 Anemia 02/08/2022 06/25/2022 Esophageal Varices Without Bleeding 02/08/2022 06/25/2022 Encephalopathy Metabolic 02/08/2022 Hepatic Failure Unspecified Without Coma 02/08/2022 06/25/2022 Pain Low Back Vertebrogenic 02/01/2022 06/25/2022 Attention Deficit Hyperactive Disorder 02/01/2022 06/25/2022 Chronic Kidney Disease (CKD) , Stage 3b Glomerular Filtration Rate (GFR) 30 To 44 02/01/2022 11/10/2022 Insomnia 02/01/2022 06/25/2022 Pyelonephritis 02/01/2022 02/02/2022 Failure Renal Acute (Acute Kidney Injury) 01/20/2022 02/02/2022 Hepatic Encephalopathy Without Coma 01/09/2022 02/02/2022 COVID-19 Infection 11/11/2021 Sales And Marketing Agent Use Of Opiate Analgesic 10/10/2021 02/02/2022 Overview (01/20/2022): No longer using chronic opioids. Opioids were discontinued during hospitalization of October 2021. Mood Disorder 10/10/2021 01/07/2022 Eating Disorder 10/10/2021 01/07/2022 Hypertension Portal 09/05/2021 06/25/19 Overview (09/05/2021): Added automatically from request for surgery [id number] Acute Respiratory Failure 03/12/2021 Long QT Syndrome 01/30/2021 09/03/2023 Acute Vaginitis 01/30/2021 02/02/2022 Displacement Of Intrauterine Contraceptive Device Initial 01/30/2021 02/02/2022 Cannabis Mild Use Disorder ( Abuse) Uncomplicated 09/30/2018 06/25/2022 Fracture Humerus Distal Disp laced Subsequent With Routine Healing Left 09/30/2018 02/02/2022 Hypomagnesemia 09/30/2018 02/02/2022 Poisoning By 4 Aminophenol D erivatives Accidental Unintentional Initial 09/30/2018 022 Hypokalemia 09/08/2018 02/02/2022 Acute Pancreatitis Without N ecrosis Or Infection Unspecified 09/08/2018 02/02/2022 Anemia Iron Deficiency 03/06/200702/02 Effusion Pleural 06/25/2022 Encounters Date Type Department Care Team Description 02/20/2024 Documentation Division of Gastroenterology in [place], [place] [address] [place] [address] Edgar Montgomery M.B.B.S., M.S. 02/16/2024 Clinical Communication Ramirez Navarrete [facility] in [place], [place] [address] [place] [address] AugustSony R.N. Phone Contact 02/15/2024 Refill Department of Community Internal Medicine in [address] [phone] Ana Red MPAS, P.A.-C. Med Refill 02/02/2024 8:40 AM CDT Office Visit Department of Community Internal Medicine in [address] [address] Ana Red MPAS, P.A.-C. Chronic Pain Syndrome (Primary Dx); Pain Low Back Chronic; Nausea; Transplant Liver (HCC); Medication Therapy Nursing Home Not 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; Pain Neck Mechanical 01/27/2024 Clinical Communication [facility] Clinical [facility] in [place], [place] [address] [place] [address] Sony Carty R.N. Tacrolimus Adjustment Protocol Liver 01/25/2024 Orders Only [facility] in [place], [place] [address] [place] [address] Sony Carty R.N. Transplant Liver (HCC) (Primary Dx); Medication Therapy Nursing Home Not 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 01/19/2024 4:28 PM CDT - 01/19/2024 11:59 PM CDT Hospital Encounter Department of Laboratory Medicine in [place], [place] [address] [place] [address] Noreen Ansari P.A.-C., M.S. Transplant Liver (HCC); Medication Therapy Sales And Marketing Agent Not 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; Osteoporosis; Deficiency Vitamin D; Infection Cytomegalovirus (HCC) Discharge Disposition: Home or Self Care 01/19/2024 Clinical Communication Department of [facility] Internal Medicine in [place], [place] [address] [place] [address] Ana Red MPAS, P.A.-C. 01/11/2024 2:00 PM CDT Telemedicine [facility] for Transplantation and Clinical Regeneration in [place], [place] [address] [place] [address] Kenny Purdy M.D. Allen, Alina M, M.D., M.S. Transplant Liver (HCC) 12/23/2023 Clinical Communication [facility] for Transplantation and Clinical Regeneration in [place], [place] [address] [place] [address] Sony Carty R.N. Phone Contact 12/22/2023 Documentation [facility] for Transplantation and Clinical Regeneration in [place], [place] [address] [place] [address] Elsie Salcedo P.A.-C., M.S. 12/22/2023 Orders Only [facility] [place] [place] [address] [place] [address] Elsie Salcedo P.A.-C., M.S. 12/21/2023 Clinical Communication Department of [facility] Internal Medicine in [address] [address] Xuan Malcolm R.N. Post Hospital Follow-up (TCM call completed) 12/20/2023 Orders Only [facility] in [place], [place] [address] [place] [address] Criselda Samayoa R.N. Transplant Liver (HCC) (Primary Dx) 12/20/2023 Clinical Communication Department of [facility] Internal Medicine in [address] [address] Ana Red MPAS, P.A.-C. Med Question 12/20/2023 Orders Only [facility] in [place], [place] [address] [place] [address] Criselda Samayoa R.N. Transplant Liver (HCC) (Primary Dx); Infection Cytomegalovirus (HCC) 12/17/2023 3:52 PM CDT - 12/20/2023 7:21 PM CDT Hospital Encounter [facility], Tenth Floor [address] [place] [address] Sree Sena M.D. Watt, Kymberly D, M.D. Discharge Disposition: Home or Self Care 12/17/2023 Intake [facility] 12/15/2023 Clinical Communication [facility] for Transplantation and Clinical Regeneration in [place], [place] [address] [place] [address] Sony Carty R.N. Care Coordination 12/03/2023 Refill Department of [facility] Internal Medicine in [address] [address] Ana Red MPAS P.A.-C. Med Refill 12/02/2023 3:00 PM CDT Office Visit Department of Community Internal Medicine in [address] [address] Ana Red MPAS P.A.-CSuma Chronic Pain Syndrome (Primary Dx); Pain Low Back Chronic 12/01/2023 Refill Department of Community Internal Medicine in [address] [address] Ana Red MPAS, P.A.-C. Med Refill 11/24/2023 Refill [facility] Trans[facility] Clinical [facility]eneration in [place], [place] [address] [place] [address] Alissa Rivera APRN, C.N.P., M.S. Med Refill 11/24/2023 Orders Only [facility] Transplantation [facility] Clinical [facility]eneration in [place], [place] [address] [place] [address] Erika Staley, R.N., C.C.T.C. Transplant Liver (HCC) (Primary Dx); Medication Therapy Sales And Marketing Agent Not 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; Alcoholism Personal History (HCC); Screening Examination Skin Cancer; Nicotine Dependence Cigarettes In Remission; Mismatch Cytomegalovirus; Diabetes Mellitus Type 2 (HCC) from Last 3 Months Immunizations Name Administration Dates Next Due DTP 03/14/1992, 1,1990,1990 DTaP (Daptacel) 05/26/1995, 2,02/23/1991,1990,1990 DTaP (Infanrix, Tripedia) 05/26/1995 HepB Pediatric/Adolescent 12/28/2000,12/17/1997, 04/30/1997 Hib (PRP-OMP) (PedvaxHIB) 02/08/1992,06/01/1991, 03/08/1991 Hib (PRP-T) (ACTHIB, HIBERIX) 02/08/1992, 992,03/08/1991 Hib, Unspecified 02/08/1992,06/01/1991, 1 IPV 05/26/1995, 2,1990,1990 Influenza TIV (IM) 02/26/2009, 8,03/21/2007,2002,03/03/2003 Influenza, Injectable, Quadrivalent 02/01,03/26/2008,03/21/2007,2002 Influenza, Seasonal, Injectable 02/27/20 09,03/26/2008,03/21/2007,2002 MMR 12/17/1997,11/09/1991 OPV 05/26/1995, 2,02/23/1991,1990,1990 PCV20 06/25/2022 Polio, Unspecified 05/26/1995, 2,1990,1990 Td (Adult), adsorbed 09/08/2002 Tdap 03/07/2014 influenza vaccine quad (FLUZONE/FLUARIX) (6 months and older)(PF) 06/29/2023,03/07/2014,02/26/2009,2007,03/21/2007,03/21/2003 Family History Medical History Relation Name Comments [...] often do you attend chur ch or restorationism services? Patient declined 02/10/2022 Do you belong to any clubs o r organizations such as nondenominational groups, unions, fraternal [...] Answer Date Recorded PHQ-2 Score 0 06/18/2023 [facility] [place] of Occupat ional Health - Occupational Stress [...] your living situation today? [facility] 03/12/2023 Education Answer Date Recorded What is the highest level of school you have completed or the highest degree you have received? 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 FOREMAN Legal Sex Female 7:53 PM FENCE INSTALLER FOREMAN Gender Identity Female 04/12/2021 7:39 PM FENCE INSTALLER FOREMAN Sexual Orientation Straight 04/12/2021 7: 39 PM FENCE INSTALLER FOREMAN Last Filed Vital Signs Vital Sign Reading Time Taken Comments Blood Pressure 89/65 02/02/2024 8:36 AM CDT Pulse 85 02/02/2024 8:36 AM CDT Temperature 36.5 ??C (97.7 ??F) 02/02/2024 8:36 AM CD T Respiratory Rate 15 12/20/2023 6:05 PM CDT Oxygen Saturation 99% 12/20/2023 6:05 PM CDT Inhaled Oxygen Concentration - - Weight 42.8 kg (94 lb 5.7 oz) 02/02/2024 8:36 AM CDT Height 150 cm (4' 11.06) 02/02/2024 8:36 AM CDT Body Mass Index 19.02 02/02/2024 8:36 AM CDT Plan of Treatment Upcoming Encounters Date Type Department Care Team (Late st Contact Info) Description 02/23/2024 8:20 AM CDT Appointment Department of Laboratory Medicine in [address] [address] Noreen Ansari, Shanita.A.-C., M.S. [address] [place] [phone] 04/06/2024 2:30 PM FENCE INSTALLER FOREMAN Clinical Communication Virtual Review in [place], [place] [address] [place] [phone] 04/07/2024 3:00 PM FENCE INSTALLER FOREMAN Comprehensive Visit Department of Spine in [place], [place] [address] [place] [phone] Faviola Jiang, MARRIAGE AND FAMILY TEACHER, C.N.P., M.S.N. [address] [place] [phone] Health Maintenance Due Date Last Done Comments Meningococcal Vaccine (1 - Risk 1-dose series ) 1992 MenB Vaccine (1 of 2 - Patient Seeks Protection) 2006 Hepatitis A Vaccines (1 of 2 - Risk 2-dose series) 2009 Zoster Vaccines (1 of 2) 2009 COVID-19 Vaccine (3 - Pfizer risk series) 05/13/2021 04/15/2021, 03/25/2021 PEG assessment for Opioid therapy 12/02/2023 06/18/2023 Influenza Vaccine (#1) 2024 , 03/07/2014, 02/26/2009, Additional history exists DTaP,Tdap,and Td Vaccines (7 - Td or Tdap) 03/07/2024 03/07/2014, 09/08/2002, 05/26/1995, Additional history exists Abdominal Ultrasound 04/18/2024 10/18/2023, 10/18/2023, 12/22/2022, Additional history exists Controlled Substance Monitoring (PHQ-9) 06/18/2024 06/18/2023 Generalized Anxiety (APPLE-7) 06/18/2024 06/18/2023 Controlled Substance Agreement 06/29/2024 06/29/2023 Opioid Risk Tool (ORT) 06/29/2024 06/29/2023 Controlled Substance Monitoring 10/19/2024 10/20/2023 Fasting Glucose for Diabetes Screening 01/25/2025 01/26/2024, 01/19/2024, 12/20/2023, Additional history exists Cervical Cancer Screening 06/25/20272022, 06/25/2022, 02/28/2014, Additional history exists Pneumococcal vaccine (0-64 years) Completed 06/25/2022 HIV Screening Completed 10/10/2022, 092 08/2021, 09/30/2021 Depression Screening (Annual PHQ-2) Completed 06/03/2023, 06/02/2023 HPV Vaccines Aged Out No longer eligi ble based on patient's age to complete this topic Medical Devices Implanted Type Area First Officer Device Identifier Shelf Expiration Date Model / Serial / Lot Stnt Herculink Rx [id number] - [id number] Implanted:Qty : 1 on 12/11/2022 by Gonzalo Sheridan M.D. at [facility] Biliary Stent Rebolledo 09/30/2024 [id number] Mirena Iud-07/31/2022 Implanted:Qty : 1 on 07/31/2022 by Faviola Dickson APRN, C.N.P. Intrauterine Device Midline: Uterus Felipe 08/30/2024 / / [id number] Description:Mirena IUD Explanted Type Area First Officer Device Identifier Shelf Expiration Date Model / Serial / Lot Inscription [facility] Gnn Pncr Dbl 7fx12 - [id number] Implanted:Qty: 1 on 12/29/2022 by Harinder Whiteside M.D., M.S. at [facility] Explanted:Qty: 1 on 02/16/2023 by Pura Hummel M.D. at [facility] Biliary Stent N/A: Pancreas [employer] 01/08/2025 [id number] / / [id number] Description:7x12 double flap pancreas stent [facility] Pncr Wdg 8.5fx22 - [id number] Implanted:Qty: 1 on 02/16/2023 by Pura Hummel M.D. at [facility] Explanted:Qty: 1 on 05/27/2023 by Juan Ross M.D. at [facility] Biliary Stent N/A: Pancreas [employer] 01/21/2026 [id number] / / [id number] Description:8.5x14 Intrauterine Device Explanted:Qty: 1 on 07/31/2022 by Faviola Dickson APRN, C.N.P. Intrauterine Device N/A: Cervix Procedures Procedure Name Priority Date/Time Associated Diagnosis Comments PROTHROMBIN TIME (PT), P Routine 01/26/2024 11:38 AM CDT Transplant Liver (HCC) TACROLIMUS LEVEL, B Routine 01/26/2024 11:38 AM CDT Transplant Liver (HCC) Medication Therapy Sales And Marketing Agent Not 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 COMPREHENSIVE METABOLIC PANEL, S/P Routine 01/26/2024 11:38 AM CDT Transplant Liver (HCC) BILIRUBIN DIRECT, S/P Routine 01/26/2024 11:38 AM CDT Transplant Liver (HCC) CBC WITH DIFFERENTIAL, B Routine 01/26/2024 11:38 AM CDT Transplant Liver (HCC) CMV DNA DETECT/QUANT, P Routine 01/26/2024 11:38 AM CDT Transplant Liver (HCC) 25-HYDROXYVITAMIN D2 AND D3, S Routine 01/19/2024 4:40 PM CDT Osteoporosis Deficiency Vitamin D TACROLIMUS LEVEL, B Routine 01/19/2024 4 :40 PM CDT Transplant Liver (HCC) Medication Therapy Nursing Home Not 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 BILIRUBIN DIRECT, S/P Routine 01/19/2024 4:40 PM CDT Transplant Liver (HCC) Medication Therapy Nursing Home Not 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 CBC WITHOUT DIFFERENTIAL, B Routine 01/19/2024 4:40 PM CDT Transplant Liver (HCC) Medication Therapy Nursing Home Not 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 COMPREHENSIVE METABOLIC PANEL, S/P Routine 01/19/2024 4:40 PM CDT Transplant Liver (HCC) Medication Therapy Nursing Home Not 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 CMV DNA DETECT/QUANT, P Routine 01/19/2024 4:40 PM CDT Transplant Liver (HCC) Infection Cytomegalovirus (HCC) TACROLIMUS LEVEL, B Routine 12/20/2023 7 :27 AM CDT PROTHROMBIN TIME (PT), P Routine 12/20/2023 7:27 AM CDT COMPREHENSIVE METABOLIC PANEL, S/P Routine 12/20/2023 7:27 AM CDT CBC WITH DIFFERENTIAL, B Routine 12/20/2023 7:27 AM CDT TACROLIMUS LEVEL, B Routine 12/19/2023 6 :42 AM CDT PROTHROMBIN TIME (PT), P Routine 12/19/2023 6:42 AM CDT MAGNESIUM, S Routine 12/19/2023 6:42 AM CDT COMPREHENSIVE METABOLIC PANEL, S/P Routine 12/19/2023 6:42 AM CDT CBC WITH DIFFERENTIAL, B Routine 12/19/2023 6:42 AM CDT FERRITIN, S Routine 12/18/2023 10:59 AM CDT IRON AND TOT IRON-BINDING CAPACITY, S/P Routine 12/18/2023 10:59 AM CDT CMV DNA DETECT/QUANT, P Routine 12/18/2023 10:59 AM CDT TACROLIMUS LEVEL, B Routine 12/18/2023 6 :08 AM CDT PROTHROMBIN TIME (PT), P Routine 12/18/2023 6:08 AM CDT COMPREHENSIVE METABOLIC PANEL, S/P Routine 12/18/2023 6:08 AM CDT CBC WITH DIFFERENTIAL, B Routine 12/18/2023 6:08 AM CDT IRON AND TOT IRON-BINDING CAPACITY, S/P Routine 12/18/2023 5:58 AM CDT FERRITIN, S Routine 12/18/2023 5:58 AM CDT HC OSMOLALITY ASSAY URINE Routine 12/17/2023 7:46 PM CDT DIPSTICK, U Routine 12/17/2023 7:46 PM CDT MICROSCOPIC MANUAL Routine 12/17/2023 7: 46 PM CDT PH, RANDOM, U Routine 12/17/2023 7:46 PM CDT URINALYSIS WITH MICROSCOPIC Routine 12/17/2023 7:46 PM CDT BACTERIAL CULTURE, AEROBIC + SUSC, URINE Routine 12/17/2023 7:46 PM CDT ECG Routine 12/17/2023 6:26 PM CDT BACTERIA / INES CULTURE, BLOOD STAT 12/17/2023 6:11 PM CDT LACTATE FOR SEPSIS WITH REFLEX STAT 12/17/2023 6:06 PM CDT PROTHROMBIN TIME (PT), P STAT 12/17/2023 6:06 PM CDT BILIRUBIN DIRECT, S/P STAT 12/17/2023 6:06 PM CDT CBC WITHOUT DIFFERENTIAL, B STAT 12/17/2023 6:06 PM CDT COMPREHENSIVE METABOLIC PANEL, S/P STAT 12/17/2023 6:06 PM CDT BACTERIA / INES CULTURE, BLOOD STAT 12/17/2023 6:06 PM CDT DX CHEST AP OR PA AND LATERAL 2 VIEWS RAD - Routine (most inpatients and all outpatients) 12/17/2023 5:30 PM CDT OUTSIDE DX CHEST Routine 12/14/2023 8:[address] ABDOMEN PELVIS WITH IV CONTRAST RAD - Semiurgent (Fast; most ED patients; some inpatients) 12/22/2022 1:47 AM CDT HIV-1/-2 AG AND AB SCREEN, PLASMA STAT 10/10/2022 11:31 AM CDT HPV WITH GENOTYPING, PCR, THINPREP Routine 06/25/2022 5:12 PM FENCE INSTALLER FOREMAN from Last 3 Months or Most Recently Relevant to Health Maintenance Results * CMV DNA Detect / Quant, Plasma (01/26/2024 11:38 AM CDT) Only the most recent of3 resultswithin the time period is included. CMV DNA Detect/Quant, P Undetected Undetected IU/mL 01/27/2024 2:13 PM CDT [facility] Comment: Result in log IU/mL is Undetected. ----ADDITIONAL INFORMATION---- The quantification range of this assay is 35 to 10,000,000 IU/mL (1.54 log to 7.00 log IU/mL). Testing was performed using the john CMV test ([employer] Blood (Blood, Venous) 01/26/2024 11:38 AM CDT 01/26/2024 5:02 PM CDT Hiro Murillo P.A.-C. LAB MICROBIOLOGY - BLOOD ORDERABLES Final Result [facility] [address] [place] [address] [facility] [address] [place] [address] [place] [address] * Tacrolimus, Trough (01/26/2024 11:38 AM CDT) Only the most recent of5 resultswithin the time period is included. Tacrolimus, Trough 8.2 5.0-15.0 (Trough) ng/mL 01/26/2024 5:41 PM CDT [facility] Comment: ----ADDITIONAL INFORMATION---- Target steady-state trough concentrations vary depending on the type of transplant, concomitant immunosuppression, clinical/institutional protocols, and time post-transplant. Results should be interpreted in conjunction with this clinical information and any physical signs/symptoms of rejection/toxicity. Testing performed by Liquid Chromatography-Tandem Mass Spectrometry (LC-MS/MS). This test was developed and its performance characteristics determined by [facility] in a manner consistent with CLIA requirements. This test has not been cleared or approved by the U.S. Food and Drug Administration. Blood (Blood, Venous) 01/26/2024 11:38 AM CDT 01/26/2024 2:47 PM CDT Hiro Murillo P.A.-C. LAB BLOOD NON ADD-ON Lupe l Result [facility] [address] [place] [address] [facility] [address] [place] [address] [place] [address] * Prothrombin Time (PT) (01/26/2024 11:38 AM CDT) Only the most recent of5 resultswithin the time period is included. Prothrombin Time, P 12.2 9.4 - 12.5 sec 01/26/2024 12:51 PM CDT DTL INR 1.1 0.9 - 1.1 01/26/2024 12:51 PM CDT DTL Comment: ----ADDITIONAL INFORMATION---- Standard intensity warfarin therapeutic range: 2.0 to 3.0 ?? High intensity warfarin therapeutic range: 2.5 to 3.5 Blood (Blood, Venous) 01/26/2024 11:38 AM CDT 01/26/2024 12:27 PM CDT Hiro Murillo P.A.-C. LAB BLOOD ADD-ON Final Re sult [facility] [address] [place] [address], [facility] DTL [facility] [address] [place] [address] * (ABNORMAL) CBC with Differential, Blood (01/26/2024 11:38 AM CDT) Only the most recent of4 resultswithin the time period is included. Hemoglobin 12.9 11.6 - 15.0 g/dL 01/26/2024 [...] 11:38 AM CDT 01/26/2024 12:27 PM CDT us Hiro Murillo P.A.-C. LAB BLOOD ADD-ON Final Re sult [facility] [address] [place] [address], [facility] DTL [facility] [address] [place] [address] [facility] [address] [place] [address] * Bilirubin, Direct (01/26/2024 11:38 AM CDT) Only the most recent of3 resultswithin the time period is included. Bilirubin, Direct, S <0.2 0.0 - 0.3 mg/dL 01/26/2024 3:59 PM CDT DTL Blood (Blood, Venous) 01/26/2024 11:38 AM CDT 01/26/2024 3:22 PM CDT Hiro Murillo P.A.-C. LAB BLOOD ADD-ON Final Re sult [facility] [address] [place] [address], [facility] [address] [place] [address] * (ABNORMAL) Comprehensive Metabolic Panel (01/26/2024 11:38 AM CDT) Only the most recent of6 resultswithin the time period is included. Potassium, S 4.3 3.6 - 5.2 mmol/L [...] P.A.-C. LAB BLOOD ADD-ON Final Re sult [facility] [place] [address] [place] [address], [facility] [address] [place] [address] * 25-Hydroxyvitamin D2 and D3 (01/19/2024 4:40 PM CDT) [facility] 25-Hydroxy D2 26 ng/mL 01/24/2024 9:32 AM CDT SDS 25-Hydroxy D3 4.0 ng/mL 01/24/2024 9:32 AM CDT [facility] 25-Hydroxy D Total 30 ng/mL 2023 9:32 AM CDT [facility] Comment: ----REFERENCE VALUE---- 25-HYDROXY D TOTAL (D2+D3) Optimum levels in the healthy population are 20-50. ----ADDITIONAL INFORMATION---- This test was developed and its performance characteristics determined by [facility] in a manner consistent with CLIA requirements. This test has not been cleared or approved by the U.S. Food and Drug Administration. Blood (Blood, Venous) 01/19/2024 4:40 PM CDT 01/21/2024 7:27 AM CDT us Sree Devlin M.D. LAB BLOOD ADD-ON Final Res ult [facility] [address] [place] [address] [facility] [address] [place] [address] [place] [address] * (ABNORMAL) CBC without Differential (01/19/2024 4:40 PM CDT) Only the most recent of2 resultswithin the time period is included. Hemoglobin 12.7 11.6 - 15.0 g/dL 01/19/2024 4:46 PM CDT FB60 Hematocrit 36.8 35.5 - 44.9 % 01/19/2024 4:46 PM CDT FB60 Erythrocytes 4.50 3.92 - 5.13 x10(12)/L 01/19/2024 4:46 PM CDT FB60 MCV 81.8 78.2 - 97.9 fL 01/19/2024 4:46 PM CDT FB60 RBC Distrib Width 14.0 12.2 - 16.1 % 01/19/2024 4:46 PM CDT FB60 Platelet Count 167 157 - 371 x10(9)/L 01/19/2024 4:46 PM CDT FB60 Leukocytes 2.2(L) 3.4 - 9.6 x10(9)/L 01/19/2024 4:46 PM CDT FB60 Blood (Blood, Venous) 01/19/2024 4:40 PM CDT 01/19/2024 4:40 PM CDT us Noreen Ansari P.A.-C., M.S. LAB BLOOD ADD-O N Final Result [facility] [address] [place] [address], [facility] FB60 [facility] [place] [facility] [address] [place] [address] * (ABNORMAL) Magnesium (12/19/2023 6:42 AM CDT) Pathologist [facility] Magnesium, S 1.5(L) 1.7 - 2.3 mg/dL 12/19/2023 7:26 AM CDT DTL Blood (Blood, Venous) 12/19/2023 6:42 AM CDT 12/19/2023 7:06 AM CDT Kenny Purdy M.D. LAB BLOOD ADD-ON Final Result [facility] [address] [place] [address] * (ABNORMAL) Iron and Total Iron-Binding Capacity (12/18/2023 10:59 AM CDT) Only the most recent of2 resultswithin the time period is included. [facility] Iron 73 35 - 145 mcg/dL 12/18/2023 1:00 PM CDT DTL Total Iron Binding Capacity 127(L) 250 - 400 mcg/dL 12/18/2023 1:00 PM CDT DTL Percent Saturation 57(H) 14 - 50 % 12/18/2023 1:00 PM CDT DTL Blood (Blood, Venous) 12/18/2023 10:59 AM CDT 12/18/2023 11:24 AM CDT Kenny Purdy M.D. LAB BLOOD ADD-ON Final Result [facility] [address] [place], [place] [id number] [place] [address] * (ABNORMAL) Ferritin (12/18/2023 10:59 AM CDT) Only the most recent of2 resultswithin the time period is included. Pathologist [facility] Ferritin, S 483(H) 6 - 175 mcg/L 12/18/2023 1:00 PM CDT DTL Blood (Blood, Venous) 12/18/2023 10:59 AM CDT 12/18/2023 11:24 AM CDT Kenny Purdy M.D. LAB BLOOD ADD-ON Final Result Performing Organization Address City/[facility]/ZIP Co de Phone Number [facility] [address] [place] [address], [facility] [address] [place] [address] * Osmolality, Urine (12/17/2023 7:46 PM CDT) Pathologist [facility] Osmolality, U 472 150 - 1150 mOsm/kg 12/17/2023 8:29 PM CDT DTL Urine 12/17/2023 7:46 PM CDT 12/17/2023 7:46 PM CDT Kenny Purdy M.D. LAB URINE ORDERA BLES Final Result Performing Organization Address [facility] Co de Phone Number [facility] [address] [place] [address], [address] [address] * (ABNORMAL) Dipstick, Urine (12/17/2023 7:46 PM CDT) Pathologist [facility] Hemoglobin, QL, U Moderate(A) Negative 12/17/2023 8:09 PM CDT DTL Leukocyte Esterase, U Negative Negative 12/17/2023 8:09 PM CDT DTL Nitrite, U Negative Negative 12/17/2023 8:09 PM CDT DTL Ketone, U 5(A) Negative mg/dL 12/17/2023 8:09 PM CDT DTL Glucose, U 70(A) Negative mg/dL 12/17/2023 8:09 PM CDT DTL Urine 12/17/2023 7:46 PM CDT 12/17/2023 7:46 PM CDT Kenny Purdy M.D. LAB URINE ORDERA BLES Final Result Performing Organization Address [facility] Co de Phone Number [facility] [address] [place] [address], [facility] [address] [place] [address] * pH, Random, Urine (12/17/2023 7:46 PM CDT) pH, Random, U 5.8 4.5 - 8.0 12/17/2023 8:29 PM CDT DTL Urine 12/17/2023 7:46 PM CDT 12/17/2023 7:46 PM CDT Kenny Purdy M.D. LAB URINE ORDERA BLES Final Result Performing Organization Address [facility] Co de Phone Number [facility] [address] [place] [address], [address] [address] * (ABNORMAL) Microscopic Manual (12/17/2023 7:46 PM CDT) Microscopy Abnormal 12/17/2023 9:00 PM CDT DTL RBC 3-10(A) <3 /hpf 12/17/2023 9:00 PM CDT DTL Dysmorphic RBC <25 <25 % 12/17/2023 9:00 PM CDT DTL WBC 1-3 /hpf 12/17/2023 9:00 PM CDT DTL Comment: ----REFERENCE VALUE---- <4 ??(Males) <11 (Females) Casts, Hyaline 51-100 /lpf 12/17/2023 9:00 PM CDT DTL Renal Epithelial Cells 1-3(A) /hpf 12/17/2023 9:04 PM CDT DTL Transitional Epithelial Cells 1-3(A) /hpf 12/17/2023 9:04 PM CDT DTL Squamous Epithelial Cells, U 4-10 /hpf 12/17/2023 9:00 PM CDT DTL Bacteria Present(A) 12/17/2023 9:00 PM CDT DTL Urine 12/17/2023 7:46 PM CDT 12/17/2023 7:46 PM CDT Kenny Purdy M.D. LAB URINE ORDERA BLES Edited Result - Final [facility] [address] [place] [address] * Bacterial Culture, Aerobic + Susceptibility, Urine (12/17/2023 7:46 PM CDT) Urine Culture Urogenital microbiota, susceptibilities not performed per laboratory criteria. 12/19/2023 6:40 AM CDT DTL Urine (Urine, Midstream) 12/17/2023 7:46 PM CDT 12/17/2023 9:10 PM CDT Comment:Specimen Source Site : Urine Kenny Purdy M.D. LAB MICROBIOLOGY - GENERAL ORDERABLES Final Result Performing Organization Address [facility] Co de Phone Number [facility] [address] [place] [address] * (ABNORMAL) Urinalysis, with Microscopic: Urine, Midstream (12/17/2023 7:46 PM CDT) Source Urine, Urine, Midstream 12/17/2023 7:46 PM CDT DTL Color, U Yellow 12/17/2023 7:46 PM CDT DTL Clarity, U Clear 12/17/2023 7:46 PM CDT DTL Protein, U 74(H) <26 mg/dL 12/17/2023 8:37 PM CDT DTL Protein/Osmol ality 1.57(H) <0.42 ratio 12/17/2023 8:37 PM CDT DTL Predicted 24 HR Protein, U 1006(H) <229 mg/24 h 12/17/2023 8:37 PM CDT DTL Predicted Range 249-4074 mg/24 h 12/17/2023 8:37 PM CDT DTL Comment Micro done on <10 mL 12/17/2023 8:57 PM CDT DTL Urine (Urine, Midstream) 12/17/2023 7:46 PM CDT 12/17/2023 7:46 PM CDT Kenny Purdy M.D. LAB URINE ORDERA BLES Final Result [facility] [address] [place] [address], [facility] DTL [facility] [address] [place] [address] * ECG 12 Lead (12/17/2023 6:26 PM CDT) Ventricular Rate ECG/Min 66 BPM MUSE NV Interval 202 ms MUSE QRSD Interval 74 ms MUSE QT Interval 400 ms MUSE QTC Interval 419 ms MUSE P [place] -4 degrees MUSE R [place] 16 degrees MUSE T Wave [place] 27 degrees MUSE 12/17/2023 6:26 PM CDT 12/17/2023 6:38 PM CDT Impressions MUSE - 12/17/2023 6:38 PM CDT Normal sinus rhythm with 1st degree A-V block Low voltage QRS in the limb leads Nonspecific ST and T wave abnormality When compared with ECG of 29-Dec-2022 19:16, NV interval has increased Reviewed by STERLING Luke Narrative Procedure Note Primitivo Bernard M.D. - 12/17/2023 IMPRESSION: Normal sinus rhythm with 1st degree A-V block Low voltage QRS in the limb leads Nonspecific ST and T wave abnormality When compared with ECG of 29-Dec-2022 19:16, NV interval has increased Reviewed by STERLING Luke Kenny Purdy M.D. ECG ORDERABLES Edited Result - Final Performing Organization Address City/[facility]/ZIP Co de Phone Number MUSE NA * Bacteria / Ines Culture, Blood #1 (12/17/2023 6:11 PM CDT) Only the most recent of2 resultswithin the time period is included. Bacteria/Adriana da Culture, Blood No growth after 5 days of incubation. 12/22/2023 7:02 PM CDT DTL Blood (Blood, Peripheral Draw) 12/17/2023 6:11 PM CDT 12/17/2023 6:37 PM CDT Comment:Specimen Source Site : Blood Narrative [facility] - 12/22/2023 7:02 PM CDT Received Bactec aerobic and Bactec anaerobic bottles Kenny Purdy M.D. LAB MICROBIOLOGY - GENERAL ORDERABLES Final Result Performing Organization Address [facility] Co de Phone Number [facility] [address] [place] [address], [facility] [address] [place] [address] * Lactate for Sepsis with Reflex (12/17/2023 6:06 PM CDT) Lactate, P 0.8 0.5 - 2.2 mmol/L 12/17/2023 7:14 PM CDT DTL Blood (Blood, Venous) 12/17/2023 6:06 PM CDT 12/17/2023 6:54 PM CDT Kenny Purdy M.D. LAB BLOOD NON AD D-ON Final Result Performing Organization Address City/[facility]/ZIP Co de Phone Number [facility] [address] [place] [address], [facility] [address] [place] [address] * DX Chest AP or PA and Lateral 2 Views (12/17/2023 5:30 PM CDT) Anatomical Region Laterality Modality Chest, Thoracic RST LOS, Tho racic ARZ LOS, Thoracic FLA LOS N/A Digital Radiography Impressions 12/17/2023 5:55 PM CDT Heart and mediastinum appear normal. The lungs and pleural spaces are clear. Narrative 12/17/2023 5:55 PM CDT EXAM: ??DX CHEST AP OR PA AND LATERAL 2 VIEWS Procedure Note Ervin Etienne M.B., Ch.B. - 12/17/2023 EXAM: DX CHEST AP OR PA AND LATERAL 2 VIEWS IMPRESSION: Heart and mediastinum appear normal. The lungs and pleural spaces areclear. Kenny Purdy M.D. IMG DIAGNOSTIC I MAGING PROCEDURES Final Result * XR CHEST 1V PORTABLE-Outside Chest Xray (12/14/2023 8:40 PM CDT) Narrative [facility] - 12/17/2023 1:40 PM CDT This order has been created and auto-finalized to support the import of outside images. If available, original interpretation can be found on the Media Tab in Chart Review, in Document Viewer, as an image in QREADS or as an Addendum. If a re-interpretation or overread is required please follow defined workflow.?? us Provider Not In System IMG DIAGNOSTIC IMAGING NV OCEDURES Final Result [facility] NA * CT Abdomen Pelvis with IV Contrast (12/22/2022 1:47 AM CDT) Anatomical Region Laterality Modality Abdomen, Pelvis, Abdominal R ST LOS, Abdominal ARZ LOS, Abdominal FLA LOS N/A Computed Tomograp hy, Computed Tomography 12/22/2022 1:48 AM CDT Impressions 12/22/2022 4:42 AM CDT Improved appearance of fluid collections in the region of the gallbladder fossa. Findings are otherwise not significantly changed since 12/07/2022. Narrative 12/22/2022 4:42 AM CDT EXAM: ??CT ABDOMEN PELVIS WITH IV CONTRAST COMPARISON: ??Multiple prior CT examinations of the abdomen and pelvis most recent 12/07/2022 FINDINGS: ?? The previously seen fluid collections about the gallbladder fossa have nearly resolved with complete resolution of the fluid collection anterior to the gallbladder fossa. The fluid collection posterior to the gallbladder fossa and to the right of the duodenum measures up to 13 mm and is unchanged since prior examinations (series 2, image 44). New hepatic artery stent, the hepatic artery itself is not well evaluated on this exam due to phase of contrast. Postoperative changes of liver transplant. Patent portal and hepatic veins. Cholecystectomy. Pancreatic atrophy and sequelae of chronic pancreatitis. Stable 4 mm calculus in the main pancreatic duct (series 2, image 49) and additional smaller calculi in the main pancreatic duct versus pancreatic parenchyma. Similar pancreatic ductal dilatation in the uncinate process measuring up to 8 mm. Splenomegaly measuring up to 13.5 cm. Pelvic phleboliths. IUD. Small volume free pelvic fluid predominantly surrounding the left adnexa which contains two cystic structures, favored to represent corpus lutea (series 2, image 109). Normal caliber large and small bowel. Normal appendix. Stable appearance of the fat-containing umbilical hernia. Minimal left basilar atelectasis and/or scarring. Procedure Note Dominguez Boyd M.D. - 12/22/2022 EXAM: CT ABDOMEN PELVIS WITH IV CONTRAST COMPARISON: Multiple prior CT examinations of the abdomen and pelvis mostrecent 12/07/2022 FINDINGS: The previously seen fluid collections about the gallbladder fossa havenearly resolved with complete resolution of the fluid collection anterior to the gallbladder fossa. Thefluid collection posterior to the gallbladder fossa and to the right of the duodenum measures up to13 mm and is unchanged since prior examinations (series 2, image 44). New hepatic artery stent,the hepatic artery itself is not well evaluated on this exam due to phase of contrast. Postoperativechanges of liver transplant. Patent portal and hepatic veins. Cholecystectomy. Pancreaticatrophy and sequelae of chronic pancreatitis. Stable 4 mm calculus in the main pancreatic duct(series 2, image 49) and additional smaller calculi in the main pancreatic duct versus pancreaticparenchyma. Similar pancreatic ductal dilatation in the uncinate process measuring up to 8 mm.Splenomegaly measuring up to 13.5 cm. Pelvic phleboliths. IUD. Small volume free pelvic fluidpredominantly surrounding the left adnexa which contains two cystic structures, favored to representcorpus lutea (series 2, image 109). Normal caliber large and small bowel. Normal appendix. Stableappearance of the fat-containing umbilical hernia. Minimal left basilar atelectasis and/or scarring. IMPRESSION: Improved appearance of fluid collections in the region of the gallbladderfossa. Findings are otherwise not significantly changed since 12/07/2022. Ruth Dickson M.D., Ph.D. IMG CT PROCEDURES F inal Result * HIV-1/-2 Ag and Ab Screen, Plasma (10/10/2022 11:31 AM CDT) [facility] HIV-1/-2 Ag and Ab Screen, P Negative Negative 10/10/2022 2:55 PM CDT [facility] Comment: Negative result does not rule out HIV infection. If exposure to HIV infection occurred <14 days ago, contact the laboratory to request addition of HIV-1/HIV-2 RNA detection, Plasma (HIP12). Blood (Blood, Venous) 10/10/2022 11:31 AM CDT 10/10/2022 2:13 PM CDT Naima Tee M.D. LAB MICROBIOLOGY - BLOOD ORDER HARVEY Final Result [facility] [address] [place] [address] [facility] [address] [place] [address] * HPV with Genotyping, PCR, ThinPrep (06/25/2022 5:12 PM FENCE INSTALLER FOREMAN) [facility] HPV with Genotyping, ThinPrep, PCR Negative Negative 06/26/2022 2:35 PM FENCE INST[employer]ER FOREMAN TO Comment: Negative for high risk HPV by nucleic acid amplification. ??The following high risk HPV types were not detected: 16, 18, 31, 33, 35, 39, 45, 51, 52, 56, 58, 59, 66, and 68 This result does not rule out HPV in the patient, as the sensitivity of the test depends on the timing of the specimen collection and the quality of the specimen. Result should be correlated with patient's history, clinical presentation, and SPORTS AGENT cytology report. 06/25/2022 5:12 PM FENCE INSTALLER FOREMAN 06/26/2022 7:33 AM FENCE INSTALLER FOREMAN Ana READ P.A.EsterC. 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 Protective Environment 10/10/2022 3 Insurance [facility] [place] [address] Advance Directives For more information, please contact: [phone] * Full Code (Latest Code Status on File) Date Activated Date Inactivated Comments 12/17/2023 4:20 PM 12/20/2023 9:27 PM Question Answer Comments Full Code: Discussed * Full Code Date Activated Date Inactivated Comments 12/29/2022 7:01 PM 12/31/2022 6:35 PM Question Answer Comments Full Code: Not Discussed Due to: Patient not available * Full Code Date Activated Date Inactivated Comments 12/02/2022 11:55 AM 12/02/2022 2:51 PM Question Answer Comments Full Code: Discussed * Full Code Date Activated Date Inactivated Comments 11/17/2022 9:55 PM 11/20/2022 9:03 PM Question Answer Comments Full Code: Discussed * Full Code Date Activated Date Inactivated Comments 10/10/2022 9:34 PM 10/15/2022 10:11 PM Question Answer Comments Full Code: Discussed Care Teams Casting Machine Operator Automatic Relationship Specialty Start Date End Date Ana Red MPAS, P.A.-C. [address] [facility] [place] [address] PCP - General Internal Medicine 12/01/21 [facility] [place] [facility] 08/25/21
--- OUTSIDE RECORDS SUMMARY | 2024-02-20 21:45 | XMS_ITS | Referral Summary ---
Author Organization [facility] Address [address] [place] [address] Care Team Providers Care Data Security Coordinator Name Role Phone Ana Red, P.A.-C. Primary Care Pro vider Source Comments Patient records contain information from all sites at [facility]. For routine questions regarding patient records, call [phone] during business hours, M-F 8:00 AM - 5:00 PM Central Time. Record requests for emergency care only can be directed to [phone] at any time.[facility] Encounters Date Type Department Care Team Description 02/20/2024 Documentation Division of Gastroenterology in [place], [place] [address] [place] [address] Edgar Montgomery M.B.B.S., M.S. 02/16/2024 Clinical Communication Ramirez Landon [facility] for Trans[facility] Clinical Regeneration in [place], [place] [address] [place] [address] Sony Carty R.N. Phone Contact 02/15/2024 Refill Department of Community Internal Medicine in [place], [place] [address] [place] [address] Ana Red MPAS, P.A.-C. Med Refill 02/02/2024 8:40 AM CDT Office Visit Department of Community Internal Medicine in [address] [address] Ana Red MPAS, P.A.-C. Chronic Pain Syndrome (Primary Dx); Pain Low Back Chronic; Nausea; Transplant Liver (HCC); Medication Therapy [facility] Not 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; Pain Neck Mechanical 01/27/2024 Clinical Communication [facility] Transplantation and Clinical Regeneration in [address] [address] Sony Carty R.N. Tacrolimus Adjustment Protocol Liver 01/25/2024 Orders Only [facility] Transplantation and Clinical Regeneration in [address] [address] Sony Carty R.N. Transplant Liver (HCC) (Primary Dx); Medication Therapy [facility] Not 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 01/19/2024 Clinical Communication Department of Community Internal Medicine in [address] [address] Ana Red MPAS, P.A.-C. 01/19/2024 4:28 PM CDT - 01/19/2024 11:59 PM CDT Hospital Encounter Department of Laboratory Medicine in [address] [address] Noreen Ansari P.A.-C., M.S. Transplant Liver (HCC); Medication Therapy [facility] Not 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; Osteoporosis; Deficiency Vitamin D; Infection Cytomegalovirus (HCC) Discharge Disposition: Home or Self Care 01/11/2024 2:00 PM CDT Telemedicine [facility] Transplantation and Clinical Regeneration in [address] [address] Kenny Purdy M.D. Marifer Rodriguez M.D., M.S. Transplant Liver (HCC) 12/23/2023 Clinical Communication [facility] Transplantation and Clinical Regeneration in [address] [address] Sony Carty R.N. Phone Contact 12/22/2023 Documentation [facility] in [place], [place] [address] [place] [address] Elsie Salcedo P.A.-C., M.S. 12/22/2023 Orders Only [facility] in [place], [place] [address] [place] [address] Elsie Salcedo P.A.-C., M.S. 12/21/2023 Clinical Communication Department of Community Internal Medicine in [place], [place] [address] [place] [phone] Xuan Malcolm R.N. Post Hospital Follow-up (TCM call completed) 12/20/2023 Orders Only [facility] in [place], [place] [address] [place] [address] Criselda Samayoa R.N. Transplant Liver (HCC) (Primary Dx) 12/20/2023 Clinical Communication Department of Community Internal Medicine in [place], [place] [address] [place] [address] Ana Red MPAS, P.A.-C. Med Question 12/20/2023 Orders Only [facility] in [place], [place] [address] [place] [address] Criselda Samayoa R.N. Transplant Liver (HCC) (Primary Dx); Infection Cytomegalovirus (HCC) 12/17/2023 3:52 PM CDT - 12/20/2023 7:21 PM CDT Hospital Encounter [facility], [facility], [facility], Tenth Floor [address] [place] [address] Sree Sena M.D. Watt, Kymberly D, M.D. Discharge Disposition: Home or Self Care 12/17/2023 Intake [facility] 12/15/2023 Clinical Communication [facility] Transplantation and Clinical Regeneration in [place], [place] [address] [place] [address] Sony Carty R.N. Care Coordination 12/03/2023 Refill Department of Community Internal Medicine in [address] [address] Ana Red MPAS P.A.-C. Med Refill 12/02/2023 3:00 PM CDT Office Visit Department of Community Internal Medicine in [address] [address] Ana Red MPAS P.A.-C. Chronic Pain Syndrome (Primary Dx); Pain Low Back Chronic 12/01/2023 Refill Department of Community Internal Medicine in [address] [address] Ana Red MPAS P.A.-C. Med Refill 11/24/2023 Refill [facility] Transplantation and Clinical Regeneration in [place], [place] [address] [place] [address] Alissa Rivera APRN, C.N.P., M.S. Med Refill 11/24/2023 Orders Only [facility] Transplantation and Clinical Regeneration in [place], [place] [address] [place] [address] Erika Staley R.N., C.C.T.C. Transplant Liver (HCC) (Primary Dx); Medication Therapy [employer] Not 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; Alcoholism Personal History (HCC); Screening Examination Skin Cancer; Nicotine Dependence Cigarettes In Remission; Mismatch Cytomegalovirus; Diabetes Mellitus Type 2 (HCC) from Last 3 Months Allergies Active Allergy Reactions Criticality Noted Date Comments Azithromycin Nausea And Vomiting,GI intolerance Low 05/07/2016 Medications * This document contains information received from the source organization and may not represent a complete record from that organization. lidocaine (SALONPAS) 4 % adhesive patch,medicated Place 1 patch on the skin daily. Apply to painful areas. Active levonorgestreL (MIRENA) 21 mcg/24 hours (8 [...] hours as needed for pain. 100 tablet 11 023 Active aspirin 81 mg chewable tablet Chew 1 tablet (81 mg total) daily. 90 tablet 3 023 Active diclofenac sodium (VOLTAREN) 1 % [...] for total 3.5mg twice daily 540 capsule 3 024 2024 Active tacrolimus (PROGRAF) 0.5 mg capsuleIndicatio ns:prevention of liver transplant rejection Take 1 capsule (0.5 mg total) by mouth 2 (two) times a day Indications: liver transplant rejection prevention. With 1mg caps for total 3.5mg twice daily 180 capsule 024 2024 Active triamcinolone (Nasacort) 55 mcg/actuation nasal spray Administer 2 sprays into each nostril daily. 16.5 mL 11 Active cholecalciferol (Vitamin D3) 50 mcg (2,000 Unit) tablet Take 1 tablet (50 mcg total) by mouth daily. 90 tablet 3 024 Active pantoprazole (Protonix) 40 mg EC tabletIndication s:Transplant Liver (HCC),Gastroesop hageal Reflux Disease Without Esophagitis Take 1 tablet (40 mg total) by mouth every morning before breakfast. 90 tablet 3 024 Active teriparatide (Forteo) 20 mcg/dose (600mcg/2.4mL) injection Inject 0.08 mL (20 mcg total) under the skin daily. 2.4 mL 11 Active traZODone (DesyreL) 50 mg tablet TAKE [...] mg tabletIndication s:Nausea,Transpl ant Liver (HCC),Medication Therapy [employer] Not 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 Take 1 tablet (4 mg [...] 4 mg tabletIndication s:Transplant Liver (HCC),Medication Therapy [employer] Not 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,Na usea Take 1 tablet (4 [...] (02/09/2022): Added automatically from request for surgery [id number] Smoking Tobacco Use Personal History 10/10/2021 Overview (01/20/2022): Quit smoking spring 2021. Chronic Pain Syndrome 10/10/2021 Deficiency Vitamin A 10/08/2021 Deficiency Coagulation Acquired 07/07/2021 Overview (07/07/2021): Added automatically from request for surgery [id number] Thrombocytopenia 07/01/2021 Patent Foramen Ovale 03/19/2021 Overview (11/18/2023): Echocardiogram August 2021: Positive for atrial level shunt by agitated saline contrast injection. Patent foramen ovale with [id number] shunt , 20 or greater bubbles seen [...] Without Coma 01/09/2022 02/02/2022 COVID-19 Infection 11/11/2021 [employer] Use Of Opiate Analgesic 10/10/2021 02/02/2022 Overview (01/20/2022): No longer using chronic opioids. Opioids were discontinued during hospitalization of October 2021. 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 Patient declined 02/10/2022 Do you belong to any clubs o r organizations such as shinto groups, unions, [email or web address] or athletic groups, or school groups? No [...] Answer Date Recorded PHQ-2 Score 0 06/18/2023 [facility] - Occupational [...] your living situation today? I have a [facility] place to live 03/12/2023 Education Answer Date Recorded What is the highest level of school you have completed or the highest degree you have received? Associate degree: occupational, technical, or vocational program 07/16/2021 Comments No Sex and Gender Information Value Date Recorded Sex Assigned at Female 04/12/2021 7:39 PM CARE WORKER Legal Sex Female 7:53 PM CARE WORKER Gender Identity Female 04/12/2021 7:39 PM CARE WORKER Sexual Orientation Straight 04/12/2021 7: 39 PM CARE WORKER Last Filed Vital Signs Vital Sign Reading [...] CDT Appointment Department of Laboratory Medicine in [address] [phone] Noreen Ansari P.A.-C., M.S. [address] [place] [phone] 04/06/2024 2:30 PM CARE WORKER Clinical Communication Virtual Review in [place], [place] [address] [place] [address] 04/07/2024 3:00 PM CARE WORKER Comprehensive Visit Department of Spine in [place], [place] [address] [place] [phone] Faviola Jiang APRN, C.N.P., M.S.N. [address] [place] [phone] Medical Devices Implanted Type Area Shake Out Worker Device Identifier Shelf Expiration Date Model / Serial / Lot Stnt Herculink Rx [id number] - [id number] Implanted:Qty : 1 on 12/11/2022 by Gonzalo Sheridan M[place] [facility] [place] Stent Rebolledo 09/30/2024 [id number] Mirena Iud-07/31/2022 Implanted:Qty : 1 on 07/31/2022 by Faviola Dickson APRN, C.N.P. Intrauterine Device Midline: Uterus Felipe 08/30/2024 / / [id number] Description:Mirena IUD Explanted Type Area Shake Out Worker Device Identifier Shelf Expiration Date Model / Serial / Lot Stnt Gnn Pncr Dbl 7fx12 - [id number] Implanted:Qty: 1 on 12/29/2022 by SeguraHarinder De Luna M.D., M.S. at [facility] Explanted:Qty: 1 on 02/16/2023 by Pura Hummel M.D. at [facility] Biliary Stent N/A: Pancreas [employer] 01/08/2025 [id number] / / [id number] Description:7x12 double flap pancreas stent Stnt Jhl Pncr Wdg 8.5fx22 - [id number] Implanted:Qty: 1 on 02/16/2023 by Pura Hummel M.D. at [facility] Explanted:Qty: 1 on 05/27/2023 by Juan Ross M.D. at [facility] Biliary Stent N/A: Pancreas [employer] 01/21/2026 [id number] / / [id number] Description:8.5x14 Intrauterine Device Explanted:Qty: 1 on 07/31/2022 by Faviola Dickson, TENTER FEEDER, C.N.P. Intrauterine Device N/A: Cervix Procedures Procedure Name Priority Date/Time Associated Diagnosis Comments PROTHROMBIN TIME (PT), P Routine 01/26/2024 11:38 AM CDT Transplant Liver (HCC) TACROLIMUS LEVEL, B Routine 01/26/2024 11:38 AM CDT Transplant Liver (HCC) Medication Therapy [employer] Not 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 COMPREHENSIVE METABOLIC PANEL, S/P Routine [...] PM CDT Transplant Liver (HCC) Medication Therapy [employer] Not 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 BILIRUBIN DIRECT, S/P Routine 01/19/2024 4:40 PM CDT Transplant Liver (HCC) Medication Therapy [employer] Not 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 CBC WITHOUT DIFFERENTIAL, B Routine 01/19/2024 4:40 PM CDT Transplant Liver (HCC) Medication Therapy [facility] Not 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 COMPREHENSIVE METABOLIC PANEL, S/P Routine 01/19/2024 4:40 PM CDT Transplant Liver (HCC) Medication Therapy [employer] Not 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 CMV DNA DETECT/QUANT, P Routine [...] GENOTYPING, PCR, THINPREP Routine 06/25/2022 5:12 PM CARE WORKER from Last 3 Months or Most Recently Relevant to Health Maintenance Results * CMV DNA Detect / Quant, Plasma (01/26/2024 11:38 AM CDT) Only the most recent of3 resultswithin the time period is included. [facility] CMV DNA Detect/Quant, P Undetected Undetected IU/mL 01/27/2024 2:13 PM CDT [facility] Comment: Result in log IU/mL is Undetected. ----ADDITIONAL INFORMATION---- The quantification range of this assay is 35 to 10,000,000 IU/mL (1.54 log to 7.00 log IU/mL). Testing was performed using the john CMV test ([employer] Blood (Blood, Venous) 01/26/2024 11:38 AM CDT 01/26/2024 5:02 PM CDT Hiro Murillo P.A.-C. LAB MICROBIOLOGY - BLOOD ORDERABLES Final Result Performing Organization Address [facility] Co de Phone Number [facility] [address] [place] [address] [facility] [address] [place] [facility] [place] [address] * Tacrolimus, Trough (01/26/2024 11:38 AM CDT) Only the most recent of5 resultswithin the time period is included. [facility] Tacrolimus, Trough 8.2 5.0-15.0 (Trough) ng/mL 01/26/2024 5:41 PM CDT [facility] Comment: ----ADDITIONAL INFORMATION---- Target steady-state trough concentrations vary depending on the type of transplant, concomitant immunosuppression, clinical/institutional protocols, and time post-transplant. Results should be interpreted in conjunction with this clinical information and any physical signs/symptoms of rejection/toxicity. Testing performed by Liquid Chromatography-Tandem Mass Spectrometry (LC-MS/MS). This test was developed and its performance characteristics determined by [facility] in a manner consistent with CLIA requirements. This test has not been cleared or approved by the U.S. Food and Drug Administration. Blood (Blood, Venous) 01/26/2024 11:38 AM CDT 01/26/2024 2:47 PM CDT Hiro Murillo P.A.-C. LAB BLOOD NON ADD-ON Lupe l Result Performing Organization Address [facility]/ZIP Co de Phone Number [facility] [address] [place] [address] [facility] [address] [place] [address] [place] [address] * Prothrombin Time (PT) (01/26/2024 11:38 AM CDT) Only the most recent of5 resultswithin the time period is included. Pathologist [facility] Prothrombin Time, P 12.2 9.4 - 12.5 [...] Re sult [facility] [address] [place] [address], [facility] [address] [place] [address] * (ABNORMAL) CBC with Differential, Blood (01/26/2024 11:38 AM CDT) Only the most recent of4 resultswithin the time period is included. [facility] Hemoglobin 12.9 11.6 - 15.0 g/dL 01/26/2024 [...] P.A.-C. LAB BLOOD ADD-[place] [address], [facility] DTL [facility] [address] [place] [address] [place] [address] * Bilirubin, Direct (01/26/2024 11:38 AM CDT) Only the most recent of3 resultswithin the time period is included. Bilirubin, Direct, S <0.2 0.0 - 0.3 mg/dL 01/26/2024 3:59 PM CDT DTL Blood (Blood, Venous) 01/26/2024 11:38 AM CDT 01/26/2024 3:22 PM CDT Hiro Murillo P.A.-C. LAB BLOOD ADD-ON Final Re sult [facility] [address] [place] [address], [facility] DTL [facility] [address] [place] [address] * (ABNORMAL) Comprehensive Metabolic Panel (01/26/2024 11:38 [...] ADD-ON Final Re sult Performing Organization Address [facility] Co de Phone Number [facility] [address] [place] [address], [facility] [address] [place] [address] * 25-Hydroxyvitamin D2 and D3 (01/19/2024 4:40 PM CDT) 25-Hydroxy D2 26 ng/mL 01/24/2024 9:32 AM CDT [facility] 25-Hydroxy D3 4.0 ng/mL 01/24/2024 9:32 AM CDT [facility] 25-Hydroxy D Total 30 ng/mL 2023 9:32 AM CDT [facility] Comment: ----REFERENCE VALUE---- 25-HYDROXY D TOTAL (D2+D3) Optimum levels in the healthy population are 20-50. ----ADDITIONAL INFORMATION---- This test was developed and its performance characteristics determined by [facility] in a manner consistent with CLIA requirements. This test has not been cleared or approved by the U.S. Food and Drug Administration. Blood (Blood, Venous) 01/19/2024 4:40 PM CDT 01/21/2024 7:27 AM CDT us Sree Devlin M.D. LAB BLOOD ADD-ON Final Res ult Performing Organization Address [facility] Co de Phone Number [facility] [address] [place] [address] [facility] [address] [place] [address] [place] [address] * (ABNORMAL) CBC without Differential (01/19/2024 4:40 [...] M.S. LAB BLOOD ADD-O N Final Result [facility] [address] [facility] [place] [address], [facility] FB60 [facility] in [place] [address] [place] [address] * (ABNORMAL) Magnesium (12/19/2023 6:42 AM CDT) Magnesium, S 1.5(L) 1.7 - 2.3 mg/dL 12/19/2023 7:26 AM CDT DTL Blood (Blood, Venous) 12/19/2023 6:42 AM CDT 12/19/2023 7:06 AM CDT us Kenny Purdy M.D. LAB BLOOD ADD-ON Final Result Performing Organization Address City/[facility]/ZIP Co de Phone Number [facility] [address] [place] [address], [facility] [address] [place] [address] * (ABNORMAL) Iron and Total Iron-Binding Capacity (12/18/2023 10:59 AM CDT) Only the most recent of2 resultswithin the time period is included. Iron 73 35 - 145 mcg/dL 12/18/2023 1:00 PM CDT DTL Total Iron Binding Capacity 127(L) 250 - 400 mcg/dL 12/18/2023 1:00 PM CDT DT Percent Saturation 57(H) 14 - 50 % 12/18/2023 1:00 PM CDT DT Blood (Blood, Venous) 12/18/2023 10:59 AM CDT 12/18/2023 11:24 AM CDT Kenny Purdy M.D. LAB BLOOD ADD-ON Final Result Performing Organization Address City/[facility]/ZIP Co de Phone Number [facility] [address] [place] [address], [facility] [address] [place] [address] * (ABNORMAL) Ferritin (12/18/2023 10:59 AM CDT) Only the most recent of2 resultswithin the time period is included. Ferritin, S 483(H) 6 - 175 mcg/L 12/18/2023 1:00 PM CDT DTL Blood (Blood, Venous) 12/18/2023 10:59 AM CDT 12/18/2023 11:24 AM CDT Kenny Purdy M.D. LAB BLOOD ADD-ON Final Result Performing Organization Address City/[facility]/ZIP Co de Phone Number [facility] [address] [place], [place] [address] [address] [place] [address] * Osmolality, Urine (12/17/2023 7:46 PM CDT) Pathologist [facility] Osmolality, U 472 150 - 1150 mOsm/kg 12/17/2023 8:29 PM CDT DTL Urine 12/17/2023 7:46 PM CDT 12/17/2023 7:46 PM CDT Kenny Purdy M.D. LAB URINE ORDERA BLES Final Result [facility] [address] [place], [place] [address] [address] [place] [address] * (ABNORMAL) Dipstick, Urine (12/17/2023 7:46 PM CDT) Pathologist [facility] Hemoglobin, QL, U Moderate(A) Negative 12/17/2023 8:09 [...] M.D. LAB URINE ORDERA BLES Final Result [facility] [address] [place] [address], [facility] [address] [place] [address] * pH, Random, Urine (12/17/2023 7:46 PM CDT) pH, Random, U 5.8 4.5 - 8.0 12/17/2023 8:29 PM CDT DTL Urine 12/17/2023 7:46 PM CDT 12/17/2023 7:46 PM CDT Kenny Purdy M.D. LAB URINE ORDERA BLES Final Result [facility] [address] [place] [address], [facility] DTL [facility] [address] [place] [address] * (ABNORMAL) Microscopic Manual (12/17/2023 7:46 PM CDT) Pathologist [facility] Microscopy Abnormal 12/17/2023 9:00 PM CDT DTL [...] URINE ORDERA BLES Edited Result - Final [facility] [address] [place] [address], [facility] [address] [place] [address] * Bacterial Culture, Aerobic + Susceptibility, Urine (12/17/2023 7:46 PM CDT) Urine Culture Urogenital microbiota, susceptibilities not performed per laboratory criteria. 12/19/2023 6:40 AM CDT DTL Urine (Urine, Midstream) 12/17/2023 7:46 PM CDT 12/17/2023 9:10 PM CDT Comment:Specimen Source Site : Urine Kenny Purdy M.D. LAB MICROBIOLOGY - GENERAL ORDERABLES Final Result Performing Organization Address City/[facility] Co de Phone Number [facility] [address] [place] [address], [facility] [address] [place] [address] * (ABNORMAL) Urinalysis, with Microscopic: Urine, Midstream [...] ORDERA BLES Final Result Performing Organization Address [facility] Co de Phone Number [facility] [address] [place] [address], [place] DTL [facility] [address] [place] [address] * ECG 12 Lead (12/17/2023 6:26 PM CDT) Ventricular Rate ECG/Min 66 BPM MUSE CA Interval 202 ms MUSE QRSD Interval 74 ms MUSE QT Interval 400 ms MUSE QTC Interval 419 ms MUSE P Bonesteel -4 degrees MUSE R [place] 16 degrees MUSE T Wave [place] 27 degrees MUSE 12/17/2023 6:26 PM CDT 12/17/2023 6:38 PM CDT Impressions MUSE - 12/17/2023 6:38 PM CDT Normal sinus rhythm with 1st degree A-V block Low voltage QRS in the limb leads Nonspecific ST and T wave abnormality When compared with ECG of 29-Dec-2022 19:16, CA interval has increased Reviewed by STERLING Luke Narrative Procedure Note Primitivo Bernard M.D. - 12/17/2023 IMPRESSION: Normal sinus rhythm with 1st degree A-V block Low voltage QRS in the limb leads Nonspecific ST and T wave abnormality When compared with ECG of 29-Dec-2022 19:16, CA interval has increased Reviewed by STERLING Luke Kenny Purdy M.D. ECG ORDERABLES Edited Result - Final Performing Organization Address [facility]/ZIP Co de Phone Number MUSE NA * Bacteria / Ines Culture, Blood #1 (12/17/2023 6:11 PM CDT) Only the most recent of2 resultswithin the time period is included. Bacteria/Adriana da Culture, Blood No growth after 5 days of incubation. 12/22/2023 7:02 PM CDT DTL Blood (Blood, Peripheral Draw) 12/17/2023 6:11 PM CDT 12/17/2023 6:37 PM CDT Comment:Specimen Source Site : Blood Narrative [facility] - 12/22/2023 7:02 PM CDT Received Bactec aerobic and Bactec anaerobic bottles Kenny Purdy M.D. LAB MICROBIOLOGY - GENERAL ORDERABLES Final Result Performing Organization Address [facility] Co de Phone Number [facility] [address] [place] [address] * Lactate for Sepsis with Reflex (12/17/2023 6:06 PM CDT) Lactate, P 0.8 0.5 - 2.2 mmol/L 12/17/2023 7:14 PM CDT DTL Blood (Blood, Venous) 12/17/2023 6:06 PM CDT 12/17/2023 6:54 PM CDT Kenny Purdy M.D. LAB BLOOD NON AD D-ON Final Result Performing Organization Address City/[facility] Co de Phone Number [facility] [address] [place] [address] * DX Chest AP or PA and [...] overread is required please follow defined workflow.?? Provider Not In System IMG DIAGNOSTIC IMAGING CA OCEDURES Final Result IIMS NA * CT [...] Ab Screen, Plasma (10/10/2022 11:31 AM CDT) Pathologist [facility] HIV-1/-2 Ag and Ab Screen, P Negative Negative 10/10/2022 2:55 PM CDT [facility] Comment: Negative result does not rule out HIV infection. If exposure to HIV infection occurred <14 days ago, contact the laboratory to request addition of HIV-1/HIV-2 RNA detection, Plasma (HIP12). Blood (Blood, Venous) 10/10/2022 11:31 AM CDT 10/10/2022 2:13 PM CDT Naima Tee M.D. LAB MICROBIOLOGY - BLOOD ORDER HARVEY Final Result Performing Organization Address City/State/[facility] Co de Phone Number [facility] [address] [place] [address] Formerly named [facility] [address] [place] [address] * HPV with Genotyping, PCR, ThinPrep (06/25/2022 5:12 PM CARE WORKER) [facility] HPV with Genotyping, ThinPrep, PCR Negative Negative 06/26/2022 2:35 PM CARE WORKER TO Comment: Negative for high risk HPV [...] correlated with patient's history, clinical presentation, and EHS MANAGER cytology report. 06/25/2022 5:12 PM CARE WORKER 06/26/2022 7:33 AM CARE WORKER Ana READ, P.A.-C. LAB MICROBIOLOGY - GENERAL ORDERABLES Final Result 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 [address] [place], [place] [address]ADI Montoya [phone] PCP - General Internal Medicine 12/01/21 [facility] 08/25/21
--- OUTSIDE RECORDS SUMMARY | 2024-02-20 21:45 | XMS_ITS | Encounter Summary ---
Author Organization [facility] Address [address] [place] [address] Care Team Providers Care Anesthesiologist Physician Name Role Phone Ana Red P.A.-C. Primary Care Pro vider Reason for Visit * Reason Onset Date Comments Tacrolimus Adjustment Protocol Liver 01/27/2024 Encounter Details Date Type Department Care Team (Latest Contact Info) Description 01/27/2024 Clinical Communication Ramirez Navarrete [facility] in [place], [place] [address] [place] [phone] August, Andrew GriffithsNSuma [address] [place] [phone] Tacrolimus Adjustment Protocol Liver Social History Tobacco Use Types Packs/Day Years [...] week 02/10/2022 How often do you attend [facility] or cheondoism services? Patient declined 02/10/2022 Do you belong to any clubs o r organizations such as rastafari groups, unions, fraternal [...] Answer Date Recorded PHQ-2 Score 0 06/18/2023 [facility] - [...] your living situation today? I have a [facility] place to live 03/12/2023 Education Answer Date Recorded What is the highest level of school you have completed or the highest degree you have received? Associate degree: occupational, technical, or vocational program 07/16/2021 Comments Unknown Sex and Gender Information Value Date Recorded Sex Assigned at Female 04/12/2021 7:39 PM HARVEST WORKER Legal Sex Female 7:53 PM HARVEST WORKER Gender Identity Female 04/12/2021 7:39 PM HARVEST WORKER Sexual Orientation Straight 04/12/2021 7: 39 PM HARVEST WORKER documented as of this encounter Miscellaneous Notes * Telephone Encounter - Sony Carty, RSumaN. - 01/27/2024 2:50 PM CDT Recent Labs 01/26/24 1138 TACROLIMUS 8.2 Tacrolimus level is within goal range of Active Patient Thresholds Lab Low High Effective Since Comment Tacrolimus Level 6 8 12/20/2023 per Alissa. Discussed during 12/19 hosp stay--per Watt, stop myco andkeep tac level 6-8 assuming true trough level. No dose change recommended. Other lab results received and reviewed, stable trends, continue monitoring as directed . documented in this encounter Plan of Treatment Upcoming Encounters Date Type Department Care Team (Late st Contact Info) Description 02/23/2024 8:20 AM CDT Appointment Department of Laboratory Medicine in [place], [place] 300 [place] [phone] Noreen Ansari P.A.-Katrin., M.S. [address] [place] [phone] 04/06/2024 2:30 PM HARVEST WORKER Clinical Communication Virtual Review in [place], [place] 200 [place] [address] 04/07/2024 3:00 PM HARVEST WORKER Comprehensive Visit Department of Spine in [place], [place] [address] [place] [phone] Faviola Jiang, YARITZA, C.N.P., M.S.N. 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 300 [place] [phone] PCP - General Internal Medicine 12/01/21 [facility] [place] [facility] 08/25/21 documented as of this encounter
--- OUTSIDE RECORDS SUMMARY | 2024-02-20 21:45 | XMS_ITS ---
Author Organization [facility] Address [address] [place] [address] Care Team Providers Care Furnace Worker Name Role Phone Unavailable Unavailable Unavailable Surgery Details Not on file Complications Check Surgery Details section. Procedure Estimated Blood Loss Check Surgery Details section. Procedure Findings Check Surgery Details section. Procedure Specimens Taken Check Surgery Details section.
--- OUTSIDE RECORDS SUMMARY | 2024-02-20 21:46 | XMS_ITS | Encounter Summary ---
Author Organization [facility] Address [address] [place] [address] Care Team Providers Care Hooking Machine Operator Name Role Phone Ana Red P.A.-C. Primary Care Pro vider Reason for Visit * Transplant (Routine) - Closed Specialty Diagnoses / Procedures Referred By Meir lara Referred To Contact Transplant Diagnoses Transplant Liver (HCC) Kenny Purdy M.D. [address] [place] [phone] Phone: tel: fax: [facility] Referral ID Status Reason Start Date Expiration Date Visits Re quested Visits Authorized [id number] Closed 12/20/2023 06/20/2025 1 1 Encounter Details Date Type Department Care Team (Latest Contact Info) Description 01/11/2024 2:00 PM CDT Telemedicine Ramirez Landon [facility] in [place], [place] [address] [place] [phone] Kenny Purdy M.D. [address] [place] [phone] Marifer Rodriguez M.D., M.S. [address] [place] [phone] Transplant Liver (HCC) Social History Tobacco Use Types Packs/Day [...] week 02/10/2022 How often do you attend [facility] or yarsanism services? Patient declined 02/10/2022 Do you belong to any clubs o r organizations such as orthodox groups, unions, fraternal [...] Recorded PHQ-2 Score 0 06/18/2023 [facility] - Occupational [...] your living situation today? I have a [facility] place to live 03/12/2023 Education Answer Date Recorded What is the highest level of school you have completed or the highest degree you have received? Associate degree: occupational, technical, or vocational program 07/16/2021 Comments Unknown Sex and Gender Information Value Date Recorded Sex Assigned at Female 04/12/2021 7:39 PM INNOVATIONS PARAPROFESSIONAL Legal Sex Female 7:53 PM INNOVATIONS PARAPROFESSIONAL Gender Identity Female 04/12/2021 7:39 PM INNOVATIONS PARAPROFESSIONAL Sexual Orientation Straight 04/12/2021 7: 39 PM INNOVATIONS PARAPROFESSIONAL documented as of this encounter Consult Notes * Marifer Rodriguez M.D., M.S. - 01/11/2024 2:00 PM CDT Consult conducted via real-time audio/video technology by Marifer Rodriguez M.D., M.S. 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 Dyspnea has resolved and she isafebrile. Sha had questions related to the CellCept which was stopped during the hospital stay due to neutropenia and CMV. I think there is no need to restart and immunosuppression can be continued with tacrolimus alone with a goal of 6-8. She has labs scheduled for tomorrow. CMV will be rechecked and until negative x3 she will continue Valcyte. documented in this encounter Plan of Treatment Upcoming Encounters Date Type Department Care Team (Late st Contact Info) Description 02/23/2024 8:20 AM CDT Appointment Department of Laboratory Medicine in [address] [phone] Noreen Ansari P.A.-C., M.S. [address] [place] [phone] 04/06/2024 2:30 PM INNOVATIONS PARAPROFESSIONAL Clinical Communication Virtual Review in [place], [place] 200 [place] [phone] 04/07/2024 3:00 PM INNOVATIONS PARAPROFESSIONAL Comprehensive Visit Department of Spine in [place], [place] [address] [place] [phone] Faviola Jiang, YARITZA, C.N.P., M.S.N. 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 300 [place] [phone] PCP - General Internal Medicine 12/01/21 [facility] 08/25/21 documented as of this encounter
--- OUTSIDE RECORDS SUMMARY | 2024-02-20 21:46 | XMS_ITS | Encounter Summary ---
Author Organization [facility] Address [address] [place] [address] Care Team Providers Care Bat Lathe Operator Name Role Phone Ana Red P.A.-C. Primary Care Pro vider Encounter Details Date Type Department Care Team (Latest Contact Info) Description 01/19/2024 4:28 PM CDT - 01/19/2024 11:59 PM CDT Hospital Encounter Department of Laboratory Medicine in [place], [place] [address] [place] [phone] Noreen Ansari P.A.-C., M.S. [address] [place] [phone] Transplant Liver (HCC); Medication Therapy Environmental Maintenance Worker Not 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; Osteoporosis; Deficiency Vitamin D; Infection Cytomegalovirus (HCC) Discharge Disposition: Home or Self Care Social History Tobacco Use Types Packs/Day Years [...] week 02/10/2022 How often do you attend [facility] or sabianist services? Patient declined 02/10/2022 Do you belong to any clubs o r organizations such as episcopalian groups, unions, fraternal [...] Answer Date Recorded PHQ-2 Score 0 06/18/2023 [facility] - [...] Answer Date Recorded Employment status Temporarily disabled 3 Housing Stability Answer Date Recorded What is your living situation today? I have a [facility] place to live 03/12/2023 Education Answer Date Recorded What is the highest level of school you have completed or the highest degree you have received? Associate degree: occupational, technical, or vocational program 07/16/2021 Comments Unknown Sex and Gender Information Value Date Recorded Sex Assigned at Female 04/12/2021 7:39 PM BUTTONHOLER Legal Sex Female 7:53 PM BUTTONHOLER Gender Identity Female 04/12/2021 7:39 PM BUTTONHOLER Sexual Orientation Straight 04/12/2021 7: 39 PM BUTTONHOLER documented as of this encounter Medications at Time of Discharge acetaminophen (TYLENOL) 500 mg tablet Take 1 tablet (500 mg total) by mouth every 6 (six) hours as needed for pain. 100 tablet 11 01/26/2023 aspirin 81 mg chewable tablet Chew 1 tablet (81 mg total) daily. 90 tablet 3 02/15/2023 buprenorphine-nal oxone (Suboxone) 8-2 mg per SL tablet Place 1 tablet under the tongue daily. 28 tablet 01/27/2024 cholecalciferol (Vitamin D3) 50 mcg (2,000 Unit) tablet Take 1 tablet (50 mcg total) by mouth daily. 90 tablet 3 10/22/2023 diclofenac sodium (VOLTAREN) 1 % gel Apply 2 g topically 4 (four) times a day. Apply to abdomen or other areas of pain. 200 g 3 08/06/2023 levonorgestreL (MIRENA) 21 mcg/24 hours (8 yrs) 52 mg IUD 1 Intra Uterine Device (1 each total) by intrauterine route continuously. Inserted 07/31/2022. 1 each 12/31/2022 lidocaine (SALONPAS) 4 % adhesive patch,medicated Place 1 patch on the skin daily. Apply to painful areas. 10/14/2022 multivitamin tablet Take 1 tablet by mouth daily. 30 tablet 3 12/31/2022 pantoprazole (Protonix) 40 mg EC tabletIndications :Transplant Liver (HCC),Gastroesoph ageal Reflux Disease Without Esophagitis Take 1 tablet (40 mg total) by mouth every morning before breakfast. 90 tablet 3 10/22/2023 tacrolimus (PROGRAF) 0.5 mg capsuleIndication s:prevention of liver transplant rejection Take 1 capsule (0.5 mg total) by mouth 2 (two) times a day Indications: liver transplant rejection prevention. With 1mg caps for total 3.5mg twice daily 180 capsule 3 08/16/2023 tacrolimus (PROGRAF) 1 mg capsuleIndication s:prevention of liver transplant rejection Take 3 capsules (3 mg total) by mouth 2 (two) times a day Indications: liver transplant rejection prevention. With 0.5mg caps for total 3.5mg twice daily 540 capsule 3 08/16/2023 teriparatide (Forteo) 20 mcg/dose (600mcg/2.4mL) injection Inject 0.08 mL (20 mcg total) under the skin daily. 2.4 mL 11 10/27/2023 traZODone (DesyreL) 50 mg tablet TAKE 3 TABLETS(150 MG) BY MOUTH AT BEDTIME 180 tablet 3 12/06/2023 triamcinolone (Nasacort) 55 mcg/actuation nasal spray Administer 2 sprays into each nostril daily. 16.5 mL 11 08/30/2023 buprenorphine-nal oxone (Suboxone) 8-2 mg per SL tablet Place 1 tablet under the tongue daily. 28 tablet 12/30/2023 4 gabapentin (Neurontin) 300 mg capsuleIndication s:Neuropathy TAKE 1 CAPSULE BY MOUTH THREE TIMES DAILY WITH AN ADDITIONAL 300 MG CAPSULE AT BEDTIME 90 capsule 2 11/02/2023 4 ondansetron (Zofran) 4 mg tabletIndications :Transplant Liver (HCC),Medication Therapy Fpc Not 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,Jacques sea Take 1 tablet (4 mg total) by mouth every 6 (six) hours as needed for nausea or vomiting. 30 tablet 12/24/2023 4 venlafaxine (Effexor) 75 mg 24 hr tablet Take 1 tablet (75 mg total) by mouth daily with breakfast for 14 days, THEN 2 tablets (150 mg total) daily with breakfast. 90 tablet 3 10/22/2023 4 documented as of this encounter Plan of Treatment Upcoming Encounters Date Type Department Care Team (Late st Contact Info) Description 02/23/2024 8:20 AM CDT Appointment Department of Laboratory Medicine in [place], [place] [address] [place] [phone] Noreen Ansari P.A.-C., M.S. [address] [place] [phone] 04/06/2024 2:30 PM BUTTONHOLER Clinical Communication Virtual Review in [place], [place] 200 [place] [phone] 04/07/2024 3:00 PM BUTTONHOLER Comprehensive Visit Department of Spine in [place], [place] [address] [place] [phone] Faviola Jiang APRN, C.N.P., M.S.N. [address] [place] [phone] documented as of this encounter Procedures Procedure Name Priority Date/Time Associated Diagnosis Comments CMV DNA DETECT/QUANT, P Routine 01/19/2024 4:40 PM CDT Transplant Liver (HCC) Infection Cytomegalovirus (HCC) TACROLIMUS LEVEL, B Routine 01/19/2024 4 :40 PM CDT Transplant Liver (HCC) Medication Therapy Fpc Not 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 25-HYDROXYVITAMIN D2 AND D3, S Routine 01/19/2024 4:40 PM CDT Osteoporosis Deficiency Vitamin D CBC WITHOUT DIFFERENTIAL, B Routine 01/19/2024 4:40 PM CDT Transplant Liver (HCC) Medication Therapy Environmental Maintenance Worker Not 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 BILIRUBIN DIRECT, S/P Routine 01/19/2024 4:40 PM CDT Transplant Liver (HCC) Medication Therapy Fpc Not 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 COMPREHENSIVE METABOLIC PANEL, S/P Routine 01/19/2024 4:40 PM CDT Transplant Liver (HCC) Medication Therapy Environmental Maintenance Worker Not 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 documented in this encounter Results * CMV DNA Detect / Quant, Plasma (01/19/2024 4:40 PM CDT) Pathologist [facility] CMV DNA Detect/Quant, P Undetected Undetected IU/mL 01/20/2024 3:12 PM CDT [facility] Comment: Result in log IU/mL is Undetected. ----ADDITIONAL INFORMATION---- The quantification range of this assay is 35 to 10,000,000 IU/mL (1.54 log to 7.00 log IU/mL). Testing was performed using the john CMV test ([employer] Blood (Blood, Venous) 01/19/2024 4:40 PM CDT 01/19/2024 9:52 PM CDT Kenny Purdy M.D. LAB MICROBIOLOGY - BLOOD ORDERABLES Final Result Performing Organization Address [facility] Co de Phone Number [facility] [address] [place] [address] [facility] [address] [place] [address] [place] [address] * 25-Hydroxyvitamin D2 and D3 (01/19/2024 4:40 PM CDT) 25-Hydroxy D2 26 ng/mL 01/24/2024 9:32 AM CDT [facility] 25-Hydroxy D3 4.0 ng/mL 01/24/2024 9:32 AM CDT [facility] 25-Hydroxy D Total 30 ng/mL 2023 9:32 AM CDT [facility] Comment: ----REFERENCE VALUE---- 25-HYDROXY D TOTAL (D2+D3) Optimum levels in the healthy population are 20-50. ----ADDITIONAL INFORMATION---- This test was developed and its performance characteristics determined by [facility] in a manner consistent with CLIA requirements. This test has not been cleared or approved by the U.S. Food and Drug Administration. Blood (Blood, Venous) 01/19/2024 4:40 PM CDT 01/21/2024 7:27 AM CDT Sree Devlin M.D. LAB BLOOD ADD-ON Final Res ult Performing Organization Address [facility] Co de Phone Number [facility] [address] [place] [address] [facility] [address] [place] [address] [place] [address] * Tacrolimus, Trough (01/19/2024 4:40 PM CDT) Tacrolimus, Trough 5.5 5.0-15.0 (Trough) ng/mL 01/20/2024 9:44 AM CDT [facility] Comment: ----ADDITIONAL INFORMATION---- Target steady-state trough concentrations vary depending on the type of transplant, concomitant immunosuppression, clinical/institutional protocols, and time post-transplant. Results should be interpreted in conjunction with this clinical information and any physical signs/symptoms of rejection/toxicity. Testing performed by Liquid Chromatography-Tandem Mass Spectrometry (LC-MS/MS). This test was developed and its performance characteristics determined by [facility] in a manner consistent with CLIA requirements. This test has not been cleared or approved by the U.S. Food and Drug Administration. Blood (Blood, Venous) 01/19/2024 4:40 PM CDT 01/20/2024 7:02 AM CDT Noreen Ansari P.A.-C., M.S. LAB BLOOD NON A DD-ON Final Result Performing Organization Address City/[facility]/ZIP Co de Phone Number [facility] [address] [place] [address] [facility] [address] [place] [address] [place] [address] * Bilirubin, Direct (01/19/2024 4:40 PM CDT) Bilirubin, Direct, P 0.2 0.0 - 0.3 mg/dL 01/19/2024 7:28 PM CDT [facility] Blood (Blood, Venous) 01/19/2024 4:40 PM CDT 01/19/2024 5:48 PM CDT Noreen Ansari P.A.-C., M.S. LAB BLOOD ADD-O N Final Result Performing Organization Address [facility] Co de Phone Number [facility] [address] [place] [address], [facility] in [place] [address], [place] [address] * (ABNORMAL) CBC without Differential (01/19/2024 4:40 PM CDT) Hemoglobin 12.7 11.6 - 15.0 g/dL 01/19/2024 [...] M.S. LAB BLOOD ADD-O N Final Result [facility] [address] [place] [address], [facility] [employer]60 [facility] [place] [address] [facility] [place] [address] * (ABNORMAL) Comprehensive Metabolic Panel (01/19/2024 4:40 PM CDT) Potassium, P 4.5 3.6 - 5.2 mmol/L 01/19/2024 7:27 PM CDT [facility] Sodium, P 136 135 - 145 mmol/L 01/19/2024 7:27 PM CDT [facility] Chloride, P 104 98 - 107 mmol/L 01/19/2024 7:27 PM CDT [facility] Bicarbonate, P 25 22 - 29 mmol/L 01/19/2024 7:28 PM CDT [facility] Anion Gap, P 7 7 - 15 01/19/2024 7:27 PM CDT [facility] BUN (Blood Urea Nitrogen), P 7 6 - 21 mg/dL 01/19/2024 7:28 PM CDT [facility] Creatinine 0.64 0.59 - 1.04 mg/dL 01/19/2024 7:28 PM CDT [facility] Estimated GFR (eGFR) >90 >=60 mL/min/BS A 01/19/2024 7:28 PM CDT [facility] Comment: Estimated GFR calculated using the 2020 CKD_EPI creatinine equation. Calcium, Total, P 9.0 8.6 - 10.0 mg/dL 01/19/2024 7:28 PM CDT [facility] Glucose, P 150(H) 70 - 140 mg/dL 01/19/2024 7:28 PM CDT [facility] Protein, Total, P 6.9 6.3 - 7.9 g/dL 01/19/2024 7:28 PM CDT [facility] Albumin, P 3.6 3.5 - 5.0 g/dL 01/19/2024 7:28 PM CDT [facility] Aspartate Aminotransferase (AST), P 45(H) 8 - 43 U/L 01/19/2024 7:28 PM CDT [facility] Alkaline Phosphatase, P 235(H) 35 - 104 U/L 01/19/2024 7:28 PM CDT [facility] Alanine Aminotransferase (ALT), P 58(H) 7 - 45 U/L 01/19/2024 7:28 PM CDT [facility] Bilirubin, Total, P 0.5 0.0 - 1.2 mg/dL 01/19/2024 7:28 PM CDT [facility] Blood (Blood, Venous) 01/19/2024 4:40 PM CDT 01/19/2024 5:48 PM CDT us Noreen Ansari P.A.-C., M.S. 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 [address] [place], [place] [address] [phone] PCP - General Internal Medicine 12/01/21 [facility] [place] [facility] 08/25/21 documented as of this encounter
--- OUTSIDE RECORDS SUMMARY | 2024-02-20 21:46 | XMS_ITS | Encounter Summary ---
Author Organization [facility] Address [address] [place] [address] Care Team Providers Care Egg Smeller Name Role Phone Ana Red P.A.-C. Primary Care Pro vider Reason for Referral * Transplant (Routine) - Closed Specialty Diagnoses / Procedures Referred By Meir lara Referred To Contact Transplant Diagnoses Transplant Liver (HCC) Kenny Purdy M.D. [address] [place] [phone] Phone: tel: fax: [facility] Referral ID Status Reason Start Date Expiration Date Visits Re quested Visits Authorized [id number] Closed 12/20/2023 06/20/2025 1 1 Encounter Details Date Type Department Care Team (Late st Contact Info) Description 12/20/2023 Orders Only Ramirez Nguyen [place] [facility] Trans[facility] Clinical Regeneration in [place], [place] [address] [place] [phone] Criselda Samayoa RSumaNSuma Transplant Liver (HCC) (Primary Dx) Social History Tobacco Use Types Packs/Day Years [...] How often do you attend chur or pentecostalism services? Patient declined 02/10/2022 Do you belong to any clubs o r organizations such as latter-day groups, unions, fraternal [...] Answer Date Recorded PHQ-2 Score 0 06/18/2023 [facility] [place] of Occupat ional [facility] - Occupational Stress Questionnaire Answer Date Recorded [...] your living situation today? [facility] 03/12/2023 Education Answer Date Recorded What is the highest level of school you have completed or the highest degree you have received? Associate degree: occupational, technical, or vocational program 07/16/2021 Comments Unknown Sex and Gender Information Value Date Recorded Sex Assigned at Female 04/12/2021 7:39 PM SUSTAIN ENGINEER Legal Sex Female 7:53 PM SUSTAIN ENGINEER Gender Identity Female 04/12/2021 7:39 PM SUSTAIN ENGINEER Sexual Orientation Straight 04/12/2021 7: 39 PM SUSTAIN ENGINEER documented as of this encounter Plan of Treatment Upcoming Encounters Date Type Department Care Team (Late st Contact Info) Description 02/23/2024 8:20 AM CDT Appointment Department of Laboratory Medicine in [place], [place] 300 [place] [phone] Noreen Ansari P.A.-C., M.S. [address] [place] [phone] 04/06/2024 2:30 PM SUSTAIN ENGINEER Clinical Communication Virtual Review in [place], [place] 200 [place] [phone] 04/07/2024 3:00 PM SUSTAIN ENGINEER Comprehensive Visit Department of Spine in [place], [place] [address] [place] [phone] Faviola Jiang, YARITZA, C.N.P., M.S.N. 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 300 [place] [phone] PCP - General Internal Medicine 12/01/21 [facility] [place] [facility] 08/25/21 documented as of this encounter
--- OUTSIDE RECORDS SUMMARY | 2024-02-20 21:46 | XMS_ITS | Encounter Summary ---
Author Organization [facility] Address [address] [place] [address] Care Team Providers Care Recovery Manager Name Role Phone Ana Red, P.A.-C. Primary Care Pro vider Reason for Visit * Reason Onset Date Comments Med Question 12/20/2023 Encounter Details Date Type Department Care Team (Late st Contact Info) Description 12/20/2023 Clinical Communication Department of Community Internal Medicine in [place], [place] 300 [place] [phone] Ana Red MPAS, P.A.-C. 300 [place] [phone] Med Question Social History Tobacco Use Types Packs/Day Years [...] How often do you attend chur or pentecostal services? Patient declined 02/10/2022 Do you belong to any clubs o r organizations such as temple groups, unions, fraternal [...] Answer Date Recorded PHQ-2 Score 0 06/18/2023 [employer] [facility] of Occupat ional Health - Occupational Stress [...] living situation today? I have a [facility] place to live 03/12/2023 Education Answer Date Recorded What is the highest level of school you have completed or the highest degree you have received? Associate degree: occupational, technical, or vocational program 07/16/2021 Comments Unknown Sex and Gender Information Value Date Recorded Sex Assigned at Female 04/12/2021 7:39 PM HARNESS FITTER Legal Sex Female 7:53 PM HARNESS FITTER Gender Identity Female 04/12/2021 7:39 PM HARNESS FITTER Sexual Orientation Straight 04/12/2021 7: 39 PM HARNESS FITTER documented as of this encounter Plan of Treatment Upcoming Encounters Date Type Department Care Team (Late st Contact Info) Description 02/23/2024 8:20 AM CDT Appointment Department of Laboratory Medicine in [address] [phone] Noreen Ansari P.A.-C., M.S. [address] [place] [phone] 04/06/2024 2:30 PM HARNESS FITTER Clinical Communication Virtual Review in [place], [place] [address] [place] [phone] 04/07/2024 3:00 PM HARNESS FITTER Comprehensive Visit Department of Spine in [place], [place] [address] [place] [phone] Faviola Jiang, YARITZA, C.N.P., M.S.N. 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 300 [place] [phone] PCP - General Internal Medicine 12/01/21 [facility] [place] [facility] 08/25/21 documented as of this encounter
--- OUTSIDE RECORDS SUMMARY | 2024-02-20 21:46 | XMS_ITS | Encounter Summary ---
Author Organization [facility] Address [address] [place] [phone] Care Team Providers Care Manager Mobile Name Role Phone Ana Red P.A.-C. Primary Care Pro vider Encounter Details Date Type Department Care Team (Late st Contact Info) Description 12/22/2023 Documentation [facility] in [place], [place] [address] [place] [phone] Elsie Salcedo P.A.-C., M.S. [address] [place] [address] Social History Tobacco Use Types Packs/Day Years [...] week 02/10/2022 How often do you attend [facility] or pentecostal services? Patient declined 02/10/2022 Do you belong to any clubs o r organizations such as orthodoxy groups, unions, fraternal [...] Answer Date Recorded PHQ-2 Score 0 06/18/2023 [facility] of Occupat ional Health - [...] your living situation today? I have a [facility] place to live 03/12/2023 Education Answer Date Recorded What is the highest level of school you have completed or the highest degree you have received? Associate degree: occupational, technical, or vocational program 07/16/2021 Comments Unknown Sex and Gender Information Value Date Recorded Sex Assigned at Female 04/12/2021 7:39 PM CREDIT PROCESSOR Legal Sex Female 7:53 PM CREDIT PROCESSOR Gender Identity Female 04/12/2021 7:39 PM CREDIT PROCESSOR Sexual Orientation Straight 04/12/2021 7: 39 PM CREDIT PROCESSOR documented as of this encounter Progress Notes * Elsie Salcedo P.A.-Katrin., M.S. - 12/22/2023 9:09 PM CDT Catia Carias is a 33-year-old female who is a status post donor liver transplant on October 10, 2022 for alcohol associated cirrhosis, chronic pancreatitis, anxiety, depression, ADHD, multilevel compression fracture in the thoracolumbar spine, osteoporosis, diabetes who was recently admitted in the hospital in the setting of neutropenic fever with COVID-19 infection and CMV viremia. She received 4 days of remdesivir. She was discharged on oral valganciclovir 900 mg b.i.d.. She remains on tacrolimus for immune suppression. Today patient called to report that she has been having headache, chills, mild shortness of breath.She has poor oral intake. Today she had a few crackles crackers with some fluids which contained water and Gatorade. She had 3 episodes of emesis without any melena or hematemesis. She urinated 3-4 times today the color was dark yellow. She did not take any medication for headache or vomiting. Plan We discussed that her headache could be from her poor oral intake and possible dehydration. I recommended her to take Tylenol 500 mg 6 hourly p.r.n. for headache. Also recommended her to increase heroral fluid intake. Patient reports that she may have some Zofran at home which she can take for nausea and vomiting. We discussed that I can send Zofran to her desired pharmacy tonight. However, patient reports that due to her insurance coverage limitation she would prefer that no medication is sent tonight rather it can be sent in the morning by her insurance approved providers only. We also discussed that, given patient's ongoing symptoms, it might be beneficial for her to get herlabs ( CBC, CMP, tacrolimus trough level, CMP, blood cultures) drawn tomorrow. Also, she may benefit from an outpatient clinic appointment. Patient is hesitant to come to the clinic given her contagious COVID-19 infection. We discussed that an outpatient virtual clinic appointment may also be arranged for her. Patient prefers a call from her coordinator during regular day time hour. She verbalized understanding and agreed to the plan. documented in this encounter Plan of Treatment Upcoming Encounters Date Type Department Care Team (Late st Contact Info) Description 02/23/2024 8:20 AM CDT Appointment Department of Laboratory Medicine in [address] [phone] Noreen Ansari P.A.-C., M.S. [address] [place] [phone] 04/06/2024 2:30 PM CREDIT PROCESSOR Clinical Communication Virtual Review in [place], [place] [address] [place] [phone] 04/07/2024 3:00 PM CREDIT PROCESSOR Comprehensive Visit Department of Spine in [place], [place] [address] [place] [phone] Faviola Jiang APRN, C.N.P., M.S.N. 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 [address] [place] [phone] PCP - General Internal Medicine 12/01/21 [facility] [place] [facility] 08/25/21 documented as of this encounter
--- OUTSIDE RECORDS SUMMARY | 2024-02-20 21:46 | XMS_ITS | Encounter Summary ---
Author Organization [facility] Address [address] [place] [phone] Care Team Providers Care Jig Inspector Name Role Phone Ana Red P.A.-C. Primary Care Pro vider Encounter Details Date Type Department Care Team (Late st Contact Info) Description 12/22/2023 Orders Only Ramirez Navarrete [facility] for Transplantation and Clinical Regeneration in [place], [place] [address] [place] [phone] Elsie Salcedo P.A.-C., M.S. [address] [place] [phone] Social History Tobacco Use Types Packs/Day Years [...] 02/10/2022 How often do you attend [facility] or amish services? Patient declined 02/10/2022 Do you belong to any clubs o r organizations such as sikhism groups, unions, fraternal [...] Answer Date Recorded PHQ-2 Score 0 06/18/2023 [facility] of Occupat ional Health - [...] your living situation today? I have a [facility] place to live 03/12/2023 Education Answer Date Recorded What is the highest level of school you have completed or the highest degree you have received? Associate degree: occupational, technical, or vocational program 07/16/2021 Comments Unknown Sex and Gender Information Value Date Recorded Sex Assigned at Female 04/12/2021 7:39 PM DATA DELIVERABLES MANAGER Legal Sex Female 7:53 PM DATA DELIVERABLES MANAGER Gender Identity Female 04/12/2021 7:39 PM DATA DELIVERABLES MANAGER Sexual Orientation Straight 04/12/2021 7: 39 PM DATA DELIVERABLES MANAGER documented as of this encounter Plan of Treatment Upcoming Encounters Date Type Department Care Team (Late st Contact Info) Description 02/23/2024 8:20 AM CDT Appointment Department of Laboratory Medicine in [address] [phone] Noreen Ansari P.A.-C., M.S. [address] [place] [phone] 04/06/2024 2:30 PM DATA DELIVERABLES MANAGER Clinical Communication Virtual Review in [place], [place] [address] [place] [phone] 04/07/2024 3:00 PM DATA DELIVERABLES MANAGER Comprehensive Visit Department of Spine in [place], [place] [address] [place] [phone] Faviola Jiang, YARITZA, C.N.P., M.S.N. 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 300 [facility] [place] [phone] PCP - General Internal Medicine 12/01/21 [facility] [place] [facility] 08/25/21 documented as of this encounter
--- OUTSIDE RECORDS SUMMARY | 2024-02-20 21:46 | XMS_ITS | Encounter Summary ---
Author Organization [facility] Address [address] [place] [address] Care Team Providers Care Rn Neonatal Name Role Phone Ana Red, P.A.-C. Primary Care Pro vider Encounter Details Date Type Department Care Team (Late st Contact Info) Description 01/19/2024 Clinical Communication Department of Community Internal Medicine in [place], [place] 300 [place] [phone] Ana Red MPAS, P.A.-C. 300 [place] [phone] Social History Tobacco Use Types Packs/Day [...] How often do you attend chur or spiritism services? Patient declined 02/10/2022 Do you belong to any clubs o r organizations such as taoism groups, unions, fraternal [...] Answer Date Recorded PHQ-2 Score 0 06/18/2023 [facility] of Occupat ional Health - Occupational [...] your living situation today? I have a [facility] place to live 03/12/2023 Education Answer Date Recorded What is the highest level of school you have completed or the highest degree you have received? Associate degree: occupational, technical, or vocational program 07/16/2021 Comments Unknown Sex and Gender Information Value Date Recorded Sex Assigned at Female 04/12/2021 7:39 PM OPTICAL ELEMENT COATER Legal Sex Female 7:53 PM OPTICAL ELEMENT COATER Gender Identity Female 04/12/2021 7:39 PM OPTICAL ELEMENT COATER Sexual Orientation Straight 04/12/2021 7: 39 PM OPTICAL ELEMENT COATER documented as of this encounter Miscellaneous Notes * Telephone Encounter - KingaAlmitaJihan - 01/19/2024 4:47 PM CDT Reason for Communication: Catia is requesting a refill of buprenorphine-naloxone (Suboxone) 8-2 mg per SL tablet. She is scheduled to see you on January 31 and needs a refill before that. Current Can Nursing/Provider leave a detailed message? yes Did the patient refuse triage through Nurse line? (for symptom-based concerns): Action Needed: needs refill Name of Medication (if relevant): buprenorphine-naloxone (Suboxone) 8-2 mg per SL tablet Please send all scheduling replies to scheduling pool. documented in this encounter Plan of Treatment Upcoming Encounters Date Type Department Care Team (Late st Contact Info) Description 02/23/2024 8:20 AM CDT Appointment Department of Laboratory Medicine in [place], [place] 300 [place] [phone] Noreen Ansari, P.A.-C., M.S. [address] [place] [phone] 04/06/2024 2:30 PM OPTICAL ELEMENT COATER Clinical Communication Virtual Review in [place], [place] 200 [place] [phone] 04/07/2024 3:00 PM OPTICAL ELEMENT COATER Comprehensive Visit Department of Spine in [place], [place] [address] [place] [phone] Faviola Jiang, YARITZA, C.N.P., M.S.N. 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 [address] [place] [phone] PCP - General Internal Medicine 12/01/21 [facility] 08/25/21 documented as of this encounter
--- OUTSIDE RECORDS SUMMARY | 2024-02-20 21:46 | XMS_ITS | Encounter Summary ---
Author Organization [facility] Address [address] [place] [address] Care Team Providers Care Revenue Collector Name Role Phone Ana Red P.A.-C. Primary Care Pro vider Reason for Visit * Reason Onset Date Comments Phone Contact 12/23/2023 Encounter Details Date Type Department Care Team (Latest Contact Info) Description 12/23/2023 Clinical Communication Ramirez diaz [facility] for Transplantation and Clinical Regeneration in [address] [place] [phone] August, Sony Mendez R.N. [address] [place] [phone] Phone Contact Social History Tobacco Use Types [...] week 02/10/2022 How often do you attend [facility] or mandaeism services? Patient declined 02/10/2022 Do you belong to any clubs o r organizations such as religion groups, unions, fraternal [...] Answer Date Recorded PHQ-2 Score 0 06/18/2023 [facility] of Occupat ional Health - [...] your living situation today? I have a [facility] place to live 03/12/2023 Education Answer Date Recorded What is the highest level of school you have completed or the highest degree you have received? Associate degree: occupational, technical, or vocational program 07/16/2021 Comments Unknown Sex and Gender Information Value Date Recorded Sex Assigned at Female 04/12/2021 7:39 PM SILVER STEWARD Legal Sex Female 7:53 PM SILVER STEWARD Gender Identity Female 04/12/2021 7:39 PM SILVER STEWARD Sexual Orientation Straight 04/12/2021 7: 39 PM SILVER STEWARD documented as of this encounter Miscellaneous Notes * Telephone Encounter - Debi Cerda R.N., C.C.T.C. - 12/23/2023 4:36 PM CDT SUBJECTIVE CHIEF COMPLAINT / REASON FOR CALL Phone Contact Information Discussed I called Catia back, she is super concerned about the fact that the CellCept was stopped while she was in the hospital here, and she just wants to make sure this was the correct thing to happen. She also states that the first IV they placed when she was admitted was placed on the inside of her right elbow, and it infiltrated. It is still quite red and swollen. PLAN Disposition/Recommendation: I advise that I would review the stopping of the Mycophenolate, and make sure this was what was intended. Also regarding the IV I asked if she could send me a picture overthe portal of what it looks like. Information/Education: patient/caller able to teach back Caller agreeable to plan of care: yes The following references were used: nursing clinical judgement documented in this encounter Plan of Treatment Upcoming Encounters Date Type Department Care Team (Late st Contact Info) Description 02/23/2024 8:20 AM CDT Appointment Department of Laboratory Medicine in [address] [phone] Noreen Ansari, Luis., M.S. [address] [place] [phone] 04/06/2024 2:30 PM SILVER STEWARD Clinical Communication Virtual Review in 200 [place] [phone] 04/07/2024 3:00 PM SILVER STEWARD Comprehensive Visit Department of Spine in [address] [phone] Faviola Jiang APRN, C.N.P., M.S.N. 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 [address] [facility] [place] [phone] PCP - General Internal Medicine 12/01/21 [facility] [place] [facility] 08/25/21 documented as of this encounter
--- OUTSIDE RECORDS SUMMARY | 2024-02-20 21:46 | XMS_ITS | Encounter Summary ---
Author Organization [facility] Address [address] [place] [address] Care Team Providers Care Public Information Director Name Role Phone Ana Red P.A.-C. Primary Care Pro vider Reason for Visit * Reason Onset Date Comments Post Hospital Follow-up 12/21/2023 TCM call completed Encounter Details Date Type Department Care Team (Latest Contact Info) Description 12/21/2023 Clinical Communication Department of Community Internal Medicine in [place], [place] [address] [place] [phone] Xuan Malcolm R.N. [address] [phone] Post Hospital Follow-up (TCM call completed) Social History Tobacco Use Types Packs/Day Years [...] How often do you attend chur or jewish services? Patient declined 02/10/2022 Do you belong to any clubs o r organizations such as evangelical groups, unions, fraternal [...] Answer Date Recorded PHQ-2 Score 0 06/18/2023 [facility] [place] of Occupat ional Health - Occupational Stress [...] your living situation today? I have a [facility] place to live 03/12/2023 Education Answer Date Recorded What is the highest level of school you have completed or the highest degree you have received? Associate degree: occupational, technical, or vocational program 07/16/2021 Comments Unknown Sex and Gender Information Value Date Recorded Sex Assigned at Female 04/12/2021 7:39 PM TREE INSPECTOR Legal Sex Female 7:53 PM TREE INSPECTOR Gender Identity Female 04/12/2021 7:39 PM TREE INSPECTOR Sexual Orientation Straight 04/12/2021 7: 39 PM TREE INSPECTOR documented as of this encounter Miscellaneous Notes * Telephone Encounter - KingaAlmitaJihan - 12/21/2023 3:39 PM CDT Left message to call back. As of 3:30 pm, the only opening in FB this week is WednesdayDec 23 at 2:10with Dr. Maria. * Telephone Encounter - Xuan Malcolm R.N. - 12/21/2023 10:33 AM CDT SUBJECTIVE REASON FOR CALL Post-Hospital follow-up phone call with patient. Admission Date: 12/17/23 Discharge Date: 12/20/23, [facility] Spirit[facility] Discharge Diagnosis: COVID-19 infection 12/15/23 General Health Notes today that she is feeling the same since discharged from the hospital. Concerns/questions: Patient is doing okay, but has a few questions/concerns. Patient states she still isn't feeling very well. Patient states she feels she was discharged too soon. She is still feeling very weak and exhausted. She is still having some occasional nausea. Has Zofran on hand. Is trying to drink Ensure and Gatorade to stay hydrated and get calories. Hasn't eaten much for solid food. Has mostly slept in bed. Orlando Robin is at work but she can call him if needs anything. She is agreeable to TCM appt this week for follow up. Encouraged to keep up fluids to avoid dehydration. She istaking meds as directed. Denies SOB or breathing difficulties or fever. Symptom Review No new symptoms since discharge from the hospital. See above for symptom review/concerns. Activities of Daily Living Patient is independent with activities of daily living. Has the patient had a fall since discharge: no. Has ambulation changed since hospitalization: yes, Pt states still feels very weak and exhausted . Difficulty ambulating: no. The patient lives with significant other. Patient identified if needing assistance, she could depend on significant other. Wounds/Incisions/Lines, Drains and Airways None Medication Status Current medication list was reviewed and updated as needed. Reports medication is self managed. Medications concerns: none. Medication compliance for current medications: yes. High Risk Medications Controlled Substances: Name: suboxone. Antibiotics: Name: Valcyte. Home Services Utilized The patient is not currently receiving home health services. Equipment/Supplies for Home Use None ordered Assessment/Plan Follow-up Appointment PCP Follow-up appointment scheduled: appt desk to call patient to schedule TCM with PCP within 7 days of hospital discharge Specialty Follow-up scheduled with lab on 12/24/23 and Transplant team 01/11/24 . Recommendations Referral actions: none needed at this time. Additional recommendations: home care instructions reinforced or provided and provider notified. Disposition/Recommendation: recommended continue engagement in self-management activities and appt desk to call patient to schedule TCM appt . Education: patient/caller able to teach back. Caller agreeable to plan of care: yes. Patient agrees to additional follow-up: NO, Pt will follow up with transplant team Follow-up plan: N/A documented in this encounter Plan of Treatment Upcoming Encounters Date Type Department Care Team (Late st Contact Info) Description 02/23/2024 8:20 AM CDT Appointment Department of Laboratory Medicine in [address] [phone] Noreen Ansari P.A.-C., M.S. [address] [place] [phone] 04/06/2024 2:30 PM TREE INSPECTOR Clinical Communication Virtual Review in [place], [place] [address] [place] [phone] 04/07/2024 3:00 PM TREE INSPECTOR Comprehensive Visit Department of Spine in [address] [phone] Faviola Jiang, YARITZA, C.N.P., M.S.N. 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 [address] [place] [address] [place] [phone] PCP - General Internal Medicine 12/01/21 [facility] [place] [facility] 08/25/21 documented as of this encounter
--- OUTSIDE RECORDS SUMMARY | 2024-02-20 21:46 | XMS_ITS | Encounter Summary ---
Author Organization [facility] Address [address] [place] [address] Care Team Providers Care Clearing House Clerk Name Role Phone Ana Red P.A.-C. Primary Care Pro vider Encounter Details Date Type Department Care Team (Latest Contact Info) Description 12/20/2023 Orders Only Ramirez Navarrete [facility] [place] [facility] Transplantation and Clinical Regeneration in [place], [place] [address] [place] [phone] Criselda Samayoa R.N. Transplant Liver (HCC) (Primary Dx); Infection Cytomegalovirus (HCC) Social History Tobacco Use Types Packs/Day [...] any clubs o r organizations such as restorationism groups, unions, fraternal [...] Answer Date Recorded PHQ-2 Score 0 06/18/2023 [facility] of Occupat ional Health - Occupational Stress [...] your living situation today? I have a [facility] place to live 03/12/2023 Education Answer Date Recorded What is the highest level of school you have completed or the highest degree you have received? Associate degree: occupational, technical, or vocational program 07/16/2021 Comments Unknown Sex and Gender Information Value Date Recorded Sex Assigned at Female 04/12/2021 7:39 PM INDUSTRIAL GAS FITTER HELPER Legal Sex Female 7:53 PM INDUSTRIAL GAS FITTER HELPER Gender Identity Female 04/12/2021 7:39 PM INDUSTRIAL GAS FITTER HELPER Sexual Orientation Straight 04/12/2021 7: 39 PM INDUSTRIAL GAS FITTER HELPER documented as of this encounter Plan of Treatment Upcoming Encounters Date Type Department Care Team (Late st Contact Info) Description 02/23/2024 8:20 AM CDT Appointment Department of Laboratory Medicine in [place], [place] [address] [place] [phone] Noreen Ansari P.A.-C., M.S. [address] [place] [phone] 04/06/2024 2:30 PM INDUSTRIAL GAS FITTER HELPER Clinical Communication Virtual Review in [place], [place] [address] [place] [phone] 04/07/2024 3:00 PM INDUSTRIAL GAS FITTER HELPER Comprehensive Visit Department of Spine in [place], [place] [address] [place] [phone] Faviola Jiang, YARITZA, C.N.P., M.S.N. [address] [place] [phone] Scheduled Orders Name Type Priority Associated Diagnoses Orde r Schedule CMV DNA Detect / Quant, Plasma Microbiology Routine Transplant Liver (HCC) Infection Cytomegalovirus (HCC) weekly for 12 Occurrences starting 12/20/2023 until 03/21/2025, 1 completed documented as of this encounter Results * CMV DNA Detect / Quant, Plasma (01/19/2024 4:40 PM CDT) CMV DNA Detect/Quant, P Undetected Undetected IU/mL 01/20/2024 3:12 PM CDT [facility] Comment: Result in log IU/mL is Undetected. ----ADDITIONAL INFORMATION---- The quantification range of this assay is 35 to 10,000,000 IU/mL (1.54 log to 7.00 log IU/mL). Testing was performed using the john CMV test ([employer] Blood (Blood, Venous) 01/19/2024 4:40 PM CDT 01/19/2024 9:52 PM CDT us Kenny Purdy M.D. LAB MICROBIOLOGY - BLOOD ORDERABLES Final Result [facility] [place] [address] [place] [address] [facility] [address] 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 [address] [facility] [place] [phone] PCP - General Internal Medicine 12/01/21 [facility] [place] [facility] 08/25/21 documented as of this encounter
--- OUTSIDE RECORDS SUMMARY | 2024-02-20 21:47 | XMS_ITS | Encounter Summary ---
Author Organization [facility] Address [address] [place] [address] Care Team Providers Care Hull And Deck Remover Name Role Phone Ana Red P.A.-C. Primary Care Pro vider Reason for Referral * Transplant (Routine) - Authorized Specialty Diagnoses / Procedures Referred By Meir lara Referred To Contact Transplant Diagnoses Transplant Liver (HCC) Medication Therapy Manager Asset Management Not 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 Alcoholism Personal History (HCC) Marisabel Carpenter APRN, C.N.P., D.N.P. [address] [place] [address] Phone: tel: fax: [facility] Referral ID Status Reason Start Date Expiration Date V isits Requested Visits Authorized [id number] Authorized 11/24/2023 05/25/2025 1 1 Scheduling Instructions HAYES October 2024 and Coordinate with Endocrinology orders, second * MRI/CAT/PET Scan (Routine) - Authorized Specialty Diagnoses / Procedures Referred By Meir lara Referred To Contact Radiology Diagnoses Transplant Liver (HCC) Medication Therapy Manager Asset Management Not 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 Alcoholism Personal History (HCC) Nicotine Dependence Cigarettes In Remission Procedures CT Chest Lung Cancer Screen Low Dose without IV Contrast Marisabel Carpenter APRN, C.N.P., D.N.P. [address] [place] [phone] Phone: tel: fax: [facility] Referral ID Status Reason Start Date Expiration Date V isits Requested Visits Authorized [id number] Authorized 11/24/2023 11/23/2024 1 1 * MRI/CAT/PET Scan (Routine) - Authorized Specialty Diagnoses / Procedures Referred By Meir lara Referred To Contact Radiology Diagnoses Transplant Liver (HCC) Medication Therapy Care Home Not 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 Alcoholism Personal History (HCC) Procedures MR Liver Elastogram Only without IV Contrast Marisabel Carpenter APRN, C.N.P., D.N.P. [address] [place] [phone] Phone: tel: fax: [facility] Referral ID Status Reason Start Date Expiration Date V isits Requested Visits Authorized [id number] Authorized 11/24/2023 11/23/2024 1 1 * Outpatient (Routine) - Authorized Specialty Diagnoses / Procedures Referred By Meir lara Referred To Contact Otorhinolaryngology Diagnoses Transplant Liver (HCC) Medication Therapy Care Home Not 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 Alcoholism Personal History (HCC) Nicotine Dependence Cigarettes In Remission Marisabel Carpenter APRN, C.N.P., D.N.P. [address] [place] [phone] Phone: tel: fax: [facility] Referral ID Status Reason Start Date Expiration Date Visits Requested Visits Authorized [id number] Authorized Specialty Services Required 11/24/2023 05/25/2025 1 1 Scheduling Instructions HAYES October 2024 and Coordinate with Endocrinology orders, second * Outpatient (Routine) - Authorized Specialty Diagnoses / Procedures Referred By Meir lara Referred To Contact Diagnoses Transplant Liver (HCC) Medication Therapy Manager Asset Management Not 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 Alcoholism Personal History (HCC) Procedures Short renal clearance: Iothalamate/Iohexol (Renal Studies Unit) Marisabel Carpenter APRN C.N.P., D.N.P. [address] [place] [phone] Phone: tel: fax: [facility] Referral ID Status Reason Start Date Expiration Date V isits Requested Visits Authorized [id number] Authorized 11/24/2023 11/23/2024 1 1 * Outpatient (Routine) - Authorized Specialty Diagnoses / Procedures Referred By Meir lara Referred To Contact Diagnoses Transplant Liver (HCC) Medication Therapy Manager Asset Management Not 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 Alcoholism Personal History (HCC) Procedures BMD Bone Density Spine Hips Marisabel Carpenter APRN, C.N.P., D.N.P. [address] [place] [phone] Phone: tel: fax: [facility] Referral ID Status Reason Start Date Expiration Date V isits Requested Visits Authorized [id number] Authorized 11/24/2023 11/23/2024 1 1 * Outpatient (Routine) - Authorized Specialty Diagnoses / Procedures Referred By Meir lara Referred To Contact Diagnoses Transplant Liver (HCC) Medication Therapy Manager Asset Management Not 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 Alcoholism Personal History (HCC) Procedures US Liver Transplant Marisabel Carpenter APRN C.N.P., D.N.P. [address] [place] [phone] Phone: tel: fax: [facility] Referral ID Status Reason Start Date Expiration Date V isits Requested Visits Authorized [id number] Authorized 11/24/2023 11/23/2024 1 1 * Transplant (Routine) - Authorized Specialty Diagnoses / Procedures Referred By Contac t Referred To Contact Transplant Diagnoses Transplant Liver (HCC) Medication Therapy Manager Asset Management Not 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 Alcoholism Personal History (HCC) Marisabel Carpenter APRN, C.N.P., D.N.P. [address] [place] [phone] Phone: tel: fax: [facility] Referral ID Status Reason Start Date Expiration Date V isits Requested Visits Authorized [id number] Authorized 11/24/2023 05/25/2025 1 1 Scheduling Instructions HAYES October 2024 and Coordinate with Endocrinology orders, second * Transplant (Routine) - Authorized Specialty Diagnoses / Procedures Referred By Meir lara Referred To Contact Transplant Diagnoses Transplant Liver (HCC) Medication Therapy Manager Asset Management Not 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 Alcoholism Personal History (HCC) Marisabel Carpenter APRN C.N.P., D.N.P. [address] [place] [phone] Phone: tel: fax: [facility] Referral ID Status Reason Start Date Expiration Date V isits Requested Visits Authorized [id number] Authorized 11/24/2023 05/25/2025 1 1 Scheduling Instructions HAYES October 2024 and Coordinate with Endocrinology orders, second * Outpatient (Routine) - Authorized Specialty Diagnoses / Procedures Referred By Contac t Referred To Contact Dermatology Diagnoses Transplant Liver (HCC) Medication Therapy Manager Asset Management Not 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 Alcoholism Personal History (HCC) Screening Examination Skin Cancer Marisabel Carpenter APRN, C.NDayne, D.N.P. [address] [place] [address] Phone: tel: fax: [facility] Referral ID Status Reason Start Date Expiration Date V isits Requested Visits Authorized [id number] Authorized 11/24/2023 05/25/2025 1 1 Scheduling Instructions HAYES October 2024 and Coordinate with Endocrinology orders, second Encounter Details Date Type Department Care Team (Late st Contact Info) Description 11/24/2023 Orders Only Ramirez Nguyen [facility] for Transplantation and Clinical Regeneration in [place], [place] [address] [place] [phone] Erika Staley R.N., C.C.T.C. [address] [place] [phone] Transplant Liver (HCC) (Primary Dx); Medication Therapy Manager Asset Management Not 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; Alcoholism Personal History (HCC); Screening Examination Skin Cancer; Nicotine Dependence Cigarettes In Remission; Mismatch Cytomegalovirus; Diabetes Mellitus Type 2 (HCC) Social History Tobacco Use Types Packs/Day [...] How often do you attend chur or caodaism services? Patient declined 02/10/2022 Do you belong to any clubs o r organizations such as adventism groups, unions, fraternal [...] Answer Date Recorded PHQ-2 Score 0 06/18/2023 [facility] - [...] your living situation today? I have a [facility] place to live 03/12/2023 Education Answer Date Recorded What is the highest level of school you have completed or the highest degree you have received? Associate degree: occupational, technical, or vocational program 07/16/2021 Comments No Sex and Gender Information Value Date Recorded Sex Assigned at Female 04/12/2021 7:39 PM DEVELOPMENT EXPERT Legal Sex Female 7:53 PM DEVELOPMENT EXPERT Gender Identity Female 04/12/2021 7:39 PM DEVELOPMENT EXPERT Sexual Orientation Straight 04/12/2021 7: 39 PM DEVELOPMENT EXPERT documented as of this encounter Plan of Treatment Upcoming Encounters Date Type Department Care Team (Late st Contact Info) Description 02/23/2024 8:20 AM CDT Appointment Department of Laboratory Medicine in [place], [place] [address] [place] [phone] Noreen Ansari P.A.-C., M.S. [address] [place] [phone] 04/06/2024 2:30 PM DEVELOPMENT EXPERT Clinical Communication Virtual Review in [place], [place] [address] [place] [phone] 04/07/2024 3:00 PM DEVELOPMENT EXPERT Comprehensive Visit Department of Spine in [place], [place] 200 [place] [address] Faviola Jiang, YARITZA, C.N.P., M.S.N. [address] [place] [address] Scheduled Orders Name Type Priority Associated Diagnoses Orde r Schedule Bilirubin, Direct Lab Routine Transplant Liver (HCC) Medication Therapy Care Home Not 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 Alcoholism Personal History (HCC) Expected: 10/01/2024 (Approximate) , Expires: 02/23/2025 Comprehensive Metabolic Panel Lab Routine Transplant Liver (HCC) Medication Therapy Care Home Not 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 Alcoholism Personal History (HCC) Expected: 10/01/2024 (Approximate) , Expires: 02/23/2025 Lipid Panel Lab Routine Transplant Liver (HCC) Medication Therapy Manager Asset Management Not 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 Alcoholism Personal History (HCC) Expected: 10/01/2024 (Approximate) , Expires: 02/23/2025 Hemoglobin A1c Lab Routine Transplant Liver (HCC) Medication Therapy Manager Asset Management Not 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 Alcoholism Personal History (HCC) Expected: 10/01/2024 (Approximate) , Expires: 02/23/2025 S-TSH (Thyroid-Stimulating Hormone - Sensitive) Lab Routine Transplant Liver (HCC) Medication Therapy Care Home Not 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 Alcoholism Personal History (HCC) Expected: 10/01/2024 (Approximate) , Expires: 02/23/2025 Iron and Total Iron-Binding Capacity Lab Routine Transplant Liver (HCC) Medication Therapy Manager Asset Management Not 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 Alcoholism Personal History (HCC) Expected: 10/01/2024 (Approximate) , Expires: 02/23/2025 Ferritin Lab Routine Transplant Liver (HCC) Medication Therapy Care Home Not 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 Alcoholism Personal History (HCC) Expected: 10/01/2024 (Approximate) , Expires: 02/23/2025 25-Hydroxyvitamin D2 and D3 Lab Routine Transplant Liver (HCC) Medication Therapy Care Home Not 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 Alcoholism Personal History (HCC) Expected: 10/01/2024 (Approximate) , Expires: 02/23/2025 Magnesium Lab Routine Transplant Liver (HCC) Medication Therapy Manager Asset Management Not 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 Alcoholism Personal History (HCC) Expected: 10/01/2024 (Approximate) , Expires: 02/23/2025 Prothrombin Time (PT) Lab Routine Transplant Liver (HCC) Medication Therapy Manager Asset Management Not 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 Alcoholism Personal History (HCC) Expected: 10/01/2024 (Approximate) , Expires: 02/23/2025 CBC no call back, reflex T/S HGB <8 Lab Routine Transplant Liver (HCC) Medication Therapy Care Home Not 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 Alcoholism Personal History (HCC) Expected: 10/01/2024 (Approximate) , Expires: 02/23/2025 Phosphorus Inorganic Lab Routine Transplant Liver (HCC) Medication Therapy Manager Asset Management Not 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 Alcoholism Personal History (HCC) Expected: 10/01/2024 (Approximate) , Expires: 02/23/2025 Cystatin C with Estimated GFR Lab Routine Transplant Liver (HCC) Medication Therapy Care Home Not 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 Alcoholism Personal History (HCC) Expected: 10/01/2024 (Approximate) , Expires: 02/23/2025 Organ Liver TX Lab Routine Transplant Liver (HCC) Medication Therapy Care Home Not 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 Alcoholism Personal History (HCC) Expected: 10/01/2024 (Approximate) , Expires: 02/23/2025 Mononucleosis RNA/DNA Lab Routine Transplant Liver (HCC) Medication Therapy Manager Asset Management Not 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 Alcoholism Personal History (HCC) Expected: 10/01/2024 (Approximate) , Expires: 02/23/2025 Tacrolimus, Trough Lab Routine Transplant Liver (HCC) Medication Therapy Manager Asset Management Not 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 Alcoholism Personal History (HCC) Expected: 10/01/2024 (Approximate) , Expires: 02/23/2025 Urinalysis, with Microscopic: Urine, Voided Lab Routine Transplant Liver (HCC) Medication Therapy Care Home Not 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 Alcoholism Personal History (HCC) Expected: 10/01/2024 (Approximate) , Expires: 02/23/2025 US Liver Transplant Imaging RAD - Routin e (most inpatients and all outpatients) Transplant Liver (HCC) Medication Therapy Manager Asset Management Not 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 Alcoholism Personal History (HCC) Expected: 10/01/2024 (Approximate) , Expires: 02/23/2025 BMD Bone Density Spine Hips Imaging RAD - Routine (most inpatients and all outpatients) Transplant Liver (HCC) Medication Therapy Care Home Not 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 Alcoholism Personal History (HCC) Expected: 10/01/2024 (Approximate) , Expires: 02/23/2025 Short renal clearance: Iothalamate/Iohexol (Renal Studies Unit) Procedures Routine Transplant Liver (HCC) Medication Therapy Manager Asset Management Not 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 Alcoholism Personal History (HCC) Expected: 10/01/2024 (Approximate) , Expires: 02/23/2025 Phosphatidylethanol Confirmation Lab Routine Transplant Liver (HCC) Medication Therapy Manager Asset Management Not 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 Alcoholism Personal History (HCC) Expected: 10/01/2024 (Approximate) , Expires: 02/23/2025 Cytomegalovirus Ab IgG Microbiology Routine Transplant Liver (HCC) Medication Therapy Manager Asset Management Not 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 Alcoholism Personal History (HCC) Mismatch Cytomegalovirus Expected: 10/01/2024 (Approximate) , Expires: 02/23/2025 Ethyl Glucuronide Screen with Reflex, Urine Lab Routine Transplant Liver (HCC) Medication Therapy Manager Asset Management Not 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 Alcoholism Personal History (HCC) Expected: 10/01/2024 (Approximate) , Expires: 02/23/2025 Protein/Creatinine Ratio, Random, Urine Lab Routine Transplant Liver (HCC) Medication Therapy Manager Asset Management Not 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 Alcoholism Personal History (HCC) Diabetes Mellitus Type 2 (HCC) Expected: 10/01/2024 (Approximate) , Expires: 02/23/2025 MR Liver Elastogram Only without IV Contrast Imaging RAD - Routine (most inpatients and all outpatients) Transplant Liver (HCC) Medication Therapy Manager Asset Management Not 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 Alcoholism Personal History (HCC) Expected: 10/01/2024 (Approximate) , Expires: 02/23/2025 CT Chest Lung Cancer Screen Low Dose without IV Contrast Imaging RAD - Routine (most inpatients and all outpatients) Transplant Liver (HCC) Medication Therapy Manager Asset Management Not 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 Alcoholism Personal History (HCC) Nicotine Dependence Cigarettes In Remission Expected: 10/01/2024 (Approximate) , Expires: 02/23/2025 Drug Abuse Survey with Confirmation, Panel 9, Urine Lab Routine Transplant Liver (HCC) Medication Therapy Care Home Not 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 Alcoholism Personal History (HCC) Expected: 10/01/2024 (Approximate) , Expires: 02/23/2025 Scheduled Referrals Name Type Priority Associated Diagnoses Order Schedule Dermatology - Transplant consult (clinic) Outpatient Referral Routine Transplant Liver (HCC) Medication Therapy Care Home Not 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 Alcoholism Personal History (HCC) Screening Examination Skin Cancer Expected: 10/01/2024 (Approximate), Expires: 02/23/2025 Transplant Liver office visit (clinic) Outpatient Referral Routine Transplant Liver (HCC) Medication Therapy Manager Asset Management Not 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 Alcoholism Personal History (HCC) Expected: 10/01/2024 (Approximate), Expires: 02/23/2025 Transplant Liver office visit (clinic) Outpatient Referral Routine Transplant Liver (HCC) Medication Therapy Care Home Not 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 Alcoholism Personal History (HCC) Expected: 10/01/2024 (Approximate), Expires: 02/23/2025 Otorhinolaryngology - General non-surgical consult (clinic) Outpatient Referral Routine Transplant Liver (HCC) Medication Therapy Manager Asset Management Not 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 Alcoholism Personal History (HCC) Nicotine Dependence Cigarettes In Remission Expected: 10/01/2024 (Approximate), Expires: 02/23/2025 Transplant Psych Office Visit (clinic) Outpatient Referral Routine Transplant Liver (HCC) Medication Therapy Manager Asset Management Not 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 Alcoholism Personal History (HCC) Expected: 10/01/2024 (Approximate), Expires: 02/23/2025 documented as of this encounter Visit Diagnoses Diagnosis Transplant Liver (HCC)- Primary Medication Therapy Care Home Not 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 Alcoholism Personal History (HCC) Screening Examination Skin Cancer Nicotine Dependence Cigarettes In Remission Mismatch Cytomegalovirus Diabetes Mellitus Type 2 (HCC) documented in this encounter Additional Health Concerns 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 [address] [place] [phone] PCP - General Internal Medicine 12/01/21 [facility] [place] [facility] 08/25/21 documented as of this encounter
--- OUTSIDE RECORDS SUMMARY | 2024-02-20 21:47 | XMS_ITS | Encounter Summary ---
Author Organization [facility] Address [address] [place] [address] Care Team Providers Care Driver Retraining Instructor Name Role Phone Ana Red P.A.-C. Primary Care Pro vider Encounter Details Date Type Department Care Team (Latest Contact Info) Description 10/19/2023 Clinical Communication Ramirez Landon Formerly named [facility] for Transplantation and Clinical Regeneration in [place], [place] [address] [place] [phone] Eleazar Velazquez M.D. [address] [place] [phone] Social History Tobacco Use Types Packs/Day Years [...] How often do you attend chur or religion services? Patient declined 02/10/2022 Do you belong to any clubs o r organizations such as adventist groups, unions, fraternal [...] Answer Date Recorded PHQ-2 Score 0 06/18/2023 [facility] - [...] your living situation today? I have a [facility] place to live 03/12/2023 Education Answer Date Recorded What is the highest level of school you have completed or the highest degree you have received? Associate degree: occupational, technical, or vocational program 07/16/2021 Comments No Sex and Gender Information Value Date Recorded Sex Assigned at Female 04/12/2021 7:39 PM BICYCLE SERVICE TECHNICIAN Legal Sex Female 7:53 PM BICYCLE SERVICE TECHNICIAN Gender Identity Female 04/12/2021 7:39 PM BICYCLE SERVICE TECHNICIAN Sexual Orientation Straight 04/12/2021 7: 39 PM BICYCLE SERVICE TECHNICIAN documented as of this encounter Plan of Treatment Upcoming Encounters Date Type Department Care Team (Late st Contact Info) Description 02/23/2024 8:20 AM CDT Appointment Department of Laboratory Medicine in [place], [place] [address] [place] [phone] Noreen Ansari, Shanita.Silvano.-Katrin., M.S. [address] [place] [phone] 04/06/2024 2:30 PM BICYCLE SERVICE TECHNICIAN Clinical Communication Virtual Review in [place], [place] [address] [place] [phone] 04/07/2024 3:00 PM BICYCLE SERVICE TECHNICIAN Comprehensive Visit Department of Spine in [place], [place] [address] [place] [phone] Faviola Jiang, BINDING MACHINE OPERATOR, C.N.P., M.S.N. 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 [address] [place] [phone] PCP - General Internal Medicine 12/01/21 [facility] [place] [facility] 08/25/21 documented as of this encounter
--- OUTSIDE RECORDS SUMMARY | 2024-02-20 21:47 | XMS_ITS | Encounter Summary ---
Author Organization [facility] Address [address] [place] [phone] Care Team Providers Care Residential Leasing Agent Name Role Phone Ana Red P.A.-C. Primary Care Pro vider Reason for Visit * Reason Onset Date Comments Rx Denial 10/29/2023 TERIPARATIDE 600 MCG/2.4ML Encounter Details Date Type Department Care Team (Latest Contact Info) Description 10/29/2023 Clinical [facility] in [place], [place] [address] [place] [phone] Noreen Ansari P.A.-Katrin., M.S. [address] [place] [phone] Rx Denial (TERIPARATIDE 600MCG/2.4ML) Social History Tobacco Use Types Packs/Day Years [...] week 02/10/2022 How often do you attend [facility] or anabaptist services? Patient declined 02/10/2022 Do you belong to any clubs o r organizations such as sabianism groups, unions, fraternal [...] Date Recorded PHQ-2 Score 0 06/18/2023 [facility] - Occupational [...] your living situation today? I have a [facility] place to live 03/12/2023 Education Answer Date Recorded What is the highest level of school you have completed or the highest degree you have received? Associate degree: occupational, technical, or vocational program 07/16/2021 Comments No Sex and Gender Information Value Date Recorded Sex Assigned at Female 04/12/2021 7:39 PM PATHOLOGY ASSISTANT Legal Sex Female 7:53 PM PATHOLOGY ASSISTANT Gender Identity Female 04/12/2021 7:39 PM PATHOLOGY ASSISTANT Sexual Orientation Straight 04/12/2021 7: 39 PM PATHOLOGY ASSISTANT documented as of this encounter Plan of Treatment Upcoming Encounters Date Type Department Care Team (Late st Contact Info) Description 02/23/2024 8:20 AM CDT Appointment Department of Laboratory Medicine in [address] [phone] Noreen Ansari P.A.-C., M.S. [address] [place] [phone] 04/06/2024 2:30 PM PATHOLOGY ASSISTANT Clinical Communication Virtual Review in [place], [place] [address] [place] [phone] 04/07/2024 3:00 PM PATHOLOGY ASSISTANT Comprehensive Visit Department of Spine in [place], [place] [address] [place] [phone] Faviola Jiang APRN, C.N.P., M.S.N. 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 [address] [place] [address] ADI Chua [phone] PCP - General Internal Medicine 12/01/21 [facility] [place] [facility] 08/25/21 documented as of this encounter
--- OUTSIDE RECORDS SUMMARY | 2024-02-20 21:47 | XMS_ITS | Encounter Summary ---
Author Organization [facility] Address [address] [place] [address] Care Team Providers Care Creosoting Engineer Name Role Phone Ana Red, P.A.-C. Primary Care Pro vider Reason for Visit * Reason Comments Med Refill Encounter Details Date Type Department Care Team (Late st Contact Info) Description 12/01/2023 Refill Department of Community Internal Medicine in [place], [place] [address] [place] [phone] Ana Red MPAS, P.A.-C. [address] [place] [phone] Med Refill Social History Tobacco [...] any clubs o r organizations such as holiness groups, unions, fraternal [...] Answer Date Recorded PHQ-2 Score 0 06/18/2023 [facility] of Occupat ional Health - Occupational Stress [...] your living situation today? I have a [facility] place to live 03/12/2023 Education Answer Date Recorded What is the highest level of school you have completed or the highest degree you have received? Associate degree: occupational, technical, or vocational program 07/16/2021 Comments No Sex and Gender Information Value Date Recorded Sex Assigned at Female 04/12/2021 7:39 PM PROCESS OPERATOR Legal Sex Female 7:53 PM PROCESS OPERATOR Gender Identity Female 04/12/2021 7:39 PM PROCESS OPERATOR Sexual Orientation Straight 04/12/2021 7: 39 PM PROCESS OPERATOR documented as of this encounter Plan of Treatment Upcoming Encounters Date Type Department Care Team (Late st Contact Info) Description 02/23/2024 8:20 AM CDT Appointment Department of Laboratory Medicine in [place] [address] [place] [phone] Noreen Ansari P.A.-C., M.S. [address] [place] [phone] 04/06/2024 2:30 PM PROCESS OPERATOR Clinical Communication Virtual Review in [place], [place] [address] [place] [address] 04/07/2024 3:00 PM PROCESS OPERATOR Comprehensive Visit Department of Spine in [place], [place] [address] [place] [phone] Faviola Jiang, YARITZA, C.N.P., M.S.N. 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 [address] [facility] [place] [phone] PCP - General Internal Medicine 12/01/21 [facility] [place] [facility] 08/25/21 documented as of this encounter
--- OUTSIDE RECORDS SUMMARY | 2024-02-20 21:47 | XMS_ITS | Encounter Summary ---
Author Organization [facility] Address [address] [place] [address] Care Team Providers Care Square Cutter Name Role Phone Ana Red P.A.-C. Primary Care Pro vider Encounter Details Date Type Department Care Team (Latest Contact Info) Description 10/21/2023 Clinical Communication [facility] in [place], [place] [address] [place] [phone] Noreen Ansari P.A.-Katrin., M.S. [address] [place] [phone] Social History Tobacco Use Types Packs/Day Years [...] 02/10/2022 How often do you attend [facility] or quaker services? Patient declined 02/10/2022 Do you belong to any clubs o r organizations such as yarsani groups, unions, fraternal [...] Score 0 06/18/2023 [facility] - Occupational Stress Questionnaire Answer [...] your living situation today? I have a [facility] place to live 03/12/2023 Education Answer Date Recorded What is the highest level of school you have completed or the highest degree you have received? Associate degree: occupational, technical, or vocational program 07/16/2021 Comments No Sex and Gender Information Value Date Recorded Sex Assigned at Female 04/12/2021 7:39 PM SIDING STAPLER Legal Sex Female 7:53 PM SIDING STAPLER Gender Identity Female 04/12/2021 7:39 PM SIDING STAPLER Sexual Orientation Straight 04/12/2021 7: 39 PM SIDING STAPLER documented as of this encounter Plan of Treatment Upcoming Encounters Date Type Department Care Team (Late st Contact Info) Description 02/23/2024 8:20 AM CDT Appointment Department of Laboratory Medicine in [address] [phone] Noreen Ansari P.A.-C., M.S. [address] [place] [phone] 04/06/2024 2:30 PM SIDING STAPLER Clinical Communication Virtual Review in [place], [place] [address] [place] [address] 04/07/2024 3:00 PM SIDING STAPLER Comprehensive Visit Department of Spine in [place], [place] [address] [place] [phone] Faviola Jiang, YARITZA, C.N.P., M.S.N. 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 300 [place] [phone] PCP - General Internal Medicine 12/01/21 [facility] [place] [facility] 08/25/21 documented as of this encounter
--- OUTSIDE RECORDS SUMMARY | 2024-02-20 21:47 | XMS_ITS | Encounter Summary ---
Author Organization [facility] Address [address] [place] [address] Care Team Providers Care Educational Recruiter Name Role Phone Ana Red P.A.-C. Primary Care Pro vider Reason for Visit * Reason Onset Date Comments Care Coordination 12/15/2023 Encounter Details Date Type Department Care Team (Latest Contact Info) Description 12/15/2023 Clinical Communication Ramirez diaz [facility] in [place], [place] [address] [place] [phone] AugustSony R.N. [address] [place] [phone] Care Coordination Social History Tobacco Use Types Packs/Day Years [...] week 02/10/2022 How often do you attend [facility] or adventist services? Patient declined 02/10/2022 Do [...] Answer Date Recorded PHQ-2 Score 0 06/18/2023 [facility] of Occupat ional Health - Occupational [...] your living situation today? I have a [facility] place to live 03/12/2023 Education Answer Date Recorded What is the highest level of school you have completed or the highest degree you have received? Associate degree: occupational, technical, or vocational program 07/16/2021 Comments Unknown Sex and Gender Information Value Date Recorded Sex Assigned at Female 04/12/2021 7:39 PM DIGITAL LEARNING PLATFORMS MANAGER Legal Sex Female 7:53 PM DIGITAL LEARNING PLATFORMS MANAGER Gender Identity Female 04/12/2021 7:39 PM DIGITAL LEARNING PLATFORMS MANAGER Sexual Orientation Straight 04/12/2021 7: 39 PM DIGITAL LEARNING PLATFORMS MANAGER documented as of this encounter Miscellaneous Notes * Telephone Encounter - Zenobia De Santiago R.N., C.C.T.C. - 12/17/2023 1:39 PM CDT SUBJECTIVE CHIEF COMPLAINT / REASON FOR CALL Care Coordination Information Discussed Was able to reach Christelle, she shared that the provider got in touch with her as well and would be calling her back with information and when and where to report for admission. PLAN Disposition/Recommendation: recommended continue engagement in self-management activities Information/Education: patient/caller able to teach back Caller agreeable to plan of care: yes The following references were used: nursing clinical judgement * Telephone Encounter - Zenobia De Santiago R.N., Radha. - 12/17/2023 7:34 AM CDT Images from the original note were not included. Christelle went to her local ER earlier this week with symptoms of worsening shortness of breath and cough. She tested positive for COVID. Additional labs were drawn (below), revealing that her WBC was low at 0.8. I also obtained her dismissal summary and this is scanned in under media. The ER provider spoke with Dr. Sena who advised that they would have the labs faxed to us so we could follow-up. Christelle has been sick for 9 days, notes she continues to cough, feel short of breath, have fevers of 100-101, chills, and overall just feeling unwell. I have included her baseline labs below the recent results. Thoughts on how to proceed? 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 Recent treatment for rejection (past year)? No Current Medications & Recent Dose Changes: Tacrolimus 3.5 mg BID Mycophenalate Mofetil 1000 mg BID Labs: Recent Labs 10/20/23 0809 09/28/23 1300 TACROLIMUS 1.3 L 6.3 Recent Labs 10/20/23 0809 10/18/23 1738 09/28/23 1300 HGB 13.2 14.1 14.1 HCT 38.6 39.0 40.3 WBC 2.1 L 2.9 L 1.0 L NEUTROPHILS 1.06 L 2.4 -- PLT 160 152 139 L NA 139 138 139 KPLASMA -- -- 4.7 KSERUM 3.1 L 3.0 L -- MG 1.7 -- -- GLUCOSE 141 H 203 H 229 H HGBA1C 6.6 H -- -- BUN 10 21 H 12 CREATININE 0.66 0.57 0.61 EGFR >90 -- >90 ALKPHOS 202 H 203 H 184 H AST 27 38 H 32 ALT 76 H 107 H 49 H BILITOT 0.7 1.0 0.6 BILIDIR 0.2 -- <0.2 PT 11.3 -- -- INR 1.0 -- -- ALBUMIN 4.6 -- 4.4 documented in this encounter Plan of Treatment Upcoming Encounters Date Type Department Care Team (Late st Contact Info) Description 02/23/2024 8:20 AM CDT Appointment Department of Laboratory Medicine in [address] [phone] Noreen Ansari P.A.-C., M.S. [address] [place] [phone] 04/06/2024 2:30 PM DIGITAL LEARNING PLATFORMS MANAGER Clinical Communication Virtual Review in [place], [place] 200 [place] [phone] 04/07/2024 3:00 PM DIGITAL LEARNING PLATFORMS MANAGER Comprehensive Visit Department of Spine in [address] [phone] Faviola Jiang APRN, C.N.P., M.S.N. 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 300 [facility] [place] [phone] PCP - General Internal Medicine 12/01/21 [facility] [place] [facility] 08/25/21 documented as of this encounter
--- OUTSIDE RECORDS SUMMARY | 2024-02-20 21:47 | XMS_ITS | Encounter Summary ---
Author Organization [facility] Address [address] [place] [address] Care Team Providers Care Furnace Installer Name Role Phone Ana Red P.A.-C. Primary Care Pro vider Reason for Visit * Reason Onset Date Comments Phone Contact 10/18/2023 Symptoms Encounter Details Date Type Department Care Team (Latest Contact Info) Description 10/18/2023 Clinical Communication Ramirez Navarrete [facility] Clinical Regeneration in [place], [place] [address] [place] [phone] August, Sony Mendez R.N. [address] [place] [phone] Phone Contact (Symptoms ) Social History Tobacco Use Types Packs/Day [...] week 02/10/2022 How often do you attend [facility] or anabaptism services? Patient declined 02/10/2022 Do you belong to any clubs o r organizations such as congregational groups, unions, fraternal [...] Date Recorded PHQ-2 Score 0 06/18/2023 [facility] of Occupat ional Health - [...] your living situation today? I have a [facility] place to live 03/12/2023 Education Answer Date Recorded What is the highest level of school you have completed or the highest degree you have received? Associate degree: occupational, technical, or vocational program 07/16/2021 Comments No Sex and Gender Information Value Date Recorded Sex Assigned at Female 04/12/2021 7:39 PM SUPERVISOR GRINDING Legal Sex Female 7:53 PM SUPERVISOR GRINDING Gender Identity Female 04/12/2021 7:39 PM SUPERVISOR GRINDING Sexual Orientation Straight 04/12/2021 7: 39 PM SUPERVISOR GRINDING documented as of this encounter Miscellaneous Notes * Telephone Encounter - Debi Cerda R.N., C.C.T.C. - 10/18/2023 4:28 PM CDT SUBJECTIVE CHIEF COMPLAINT / REASON FOR CALL Phone Contact (Symptoms ) ASSESSMENT I called and spoke with Christelle. She said on Wednesday she started vomiting up bile like fluid as well as started experiencing abdominal pain. This has continued through today, and the pain is now wrapping around into her back where her spine fractures are. She is audibly crying on the phone. PLAN I discuss with her that this doesn't seem like something that can wait, and I advise that she report to her local Emergency Room for evaluation. I provided her with our prn occupational therapist number so the physicians there can call and speak with our transplant team if that is needed. Disposition/Recommendation: recommended to report to the nearest emergency department. Information/Education: patient/caller able to teach back. Caller agreeable to plan of care: yes. The following references were used: nursing clinical judgement. documented in this encounter Plan of Treatment Upcoming Encounters Date Type Department Care Team (Late st Contact Info) Description 02/23/2024 8:20 AM CDT Appointment Department of Laboratory Medicine in [address] [phone] Noreen Ansari P.A.-C., M.S. [address] [place] [phone] 04/06/2024 2:30 PM SUPERVISOR GRINDING Clinical Communication Virtual Review in [place], [place] 200 [place] [address] 04/07/2024 3:00 PM SUPERVISOR GRINDING Comprehensive Visit Department of Spine in [place], [place] [address] [place] [phone] Faviola Jiang APRN, C.N.P., M.S.N. 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 [address] [facility] [place] [phone] PCP - General Internal Medicine 12/01/21 [facility] [place] [facility] 08/25/21 documented as of this encounter
--- OUTSIDE RECORDS SUMMARY | 2024-02-20 21:47 | XMS_ITS | Encounter Summary ---
Author Organization [facility] Address [address] [place] [address] Care Team Providers Care Hat Cone Inspector Name Role Phone Ana Red P.A.-C. Primary Care Pro vider Reason for Referral * Outpatient (Routine) - Closed Specialty Diagnoses / Procedures Referred By Meir lara Referred To Contact Community Internal Medicine Ana Red MPAS, P.A.-C. [address] [place] [address] Phone: tel: fax: [facility] Region Referral ID Status Reason Start Date Expiration Date Visits Re quested Visits Authorized [id number] Closed 12/02/2023 06/02/2025 1 1 * Physical Therapy (Routine) - Authorized Specialty Diagnoses / Procedures Referred By Meir lara Referred To Contact Diagnoses Chronic Pain Syndrome Pain Low Back Chronic Ana Red MPAS, P.A.-C. [address] [place] [address] Phone: tel: fax: Referral ID Status Reason Start Date Expiration Date Visits Requested Visits Authorized [id number] Authorized Service not available in [facility] 12/02/2023 06/02/2025 1 1 * Outpatient (Routine) - Authorized Specialty Diagnoses / Procedures Referred By Meir lara Referred To Contact Diagnoses Chronic Pain Syndrome Ana Red MPAS, P.A.-[facility] [address] [place] [address] Phone: tel: fax: Referral ID Status Reason Start Date Expiration Date V isits Requested Visits Authorized [id number] Authorized 12/02/2023 06/02/2025 1 1 Reason for Visit * Reason Comments Follow-up 3 month Pain everywh ere, worse in the back * Outpatient (Routine) - Closed Specialty Diagnoses / Procedures Referred By Meir lara Referred To Contact Community Internal Medicine Ana Red MPAS, P.A.-[facility] [address] [place] [address] Phone: tel: fax: [facility] Referral ID Status Reason Start Date Expiration Date Visits Re quested Visits Authorized [id number] Closed 08/06/2023 02/04/2025 1 1 Encounter Details Date Type Department Care Team (Late st Contact Info) Description 12/02/2023 3:00 PM CDT Office Visit Department of Community Internal Medicine in [place], [place] [address] [place] [address] Ana Red MPAS, P.A.-[place] [address] [place] [address] Chronic Pain Syndrome (Primary Dx); Pain Low Back Chronic Social History Tobacco Use Types Packs/Day Years [...] How often do you attend chur or scientology services? Patient declined 02/10/2022 Do you belong to any clubs o r organizations such as oriental orthodox groups, unions, [...] Date Recorded PHQ-2 Score 0 06/18/2023 [facility] of Occupat ional [facility] - Occupational Stress Questionnaire Answer Date Recorded [...] Date Recorded Dental: Regular Dentist Yes 02/11/20 22 Employment Answer Date Recorded Employment status Temporarily disabled Housing Stability Answer Date Recorded What is your living situation today? I have a [facility] place to live 03/12/2023 Education Answer Date Recorded What is the highest level of school you have completed or the highest degree you have received? Associate degree: occupational, technical, or vocational program 07/16/2021 Comments Unknown Sex and Gender Information Value Date Recorded Sex Assigned at Female 04/12/2021 7:39 PM BLEACH BOILER FILLER Legal Sex Female 7:53 PM BLEACH BOILER FILLER Gender Identity Female 04/12/2021 7:39 PM BLEACH BOILER FILLER Sexual Orientation Straight 04/12/2021 7: 39 PM BLEACH BOILER FILLER documented as of this encounter Last Filed Vital Signs Vital Sign Reading Time Taken Comments Blood Pressure 85/57 12/02/2023 2:56 PM CDT Pulse 86 12/02/2023 2:56 PM CDT Temperature 36 ??C (96.8 ??F) 12/02/2023 2:50 PM CDT Respiratory Rate 16 12/02/2023 2:50 PM CDT Oxygen Saturation - - Inhaled Oxygen Concentration - - Weight 46.5 kg (102 lb 6.5 oz) 12/02/2023 2:50 P M CDT Height 150.8 cm (4' 11.37) 12/02/2023 2:50 PM C DT Body Mass Index 20.43 12/02/2023 2:50 PM CDT documented in this encounter Progress Notes * Ana Red P.A.-C. - 12/02/2023 3:00 PM CDT SUBJECTIVE CHIEF COMPLAINT/REASON FOR VISIT Chief Complaint Patient presents with Follow-up 3 month Pain everywhere, worse in the back HISTORY OF PRESENT ILLNESS Catia Carias is a pleasant 33 y.o. female who presents to the clinic today to discuss pain. She continues to have persistent back pain that she feels is worsening. She now feels she has pain in her arms and legs bilaterally which is new within the past few months. She tells me she was recentlydiagnosed with osteoporosis and describes her pain as a bone pain. She was recently started on teriparatide for bone health within the past month. She states all of her speciality providers have told her that her pain really should be under better control. She had a visit with Pain Medicine October 2023 at which time pain rehabilitation center visit was discussed however patient does not feel she w ould be able to travel to [place] multiple days per week. She was previously enrolled in physicaltherapy for back pain but this was before her liver transplant over 1 year ago which she completed locally in [place]. We transitioned her from narcotics to Suboxone at our previous clinic visit for treatment of chronic pain. She does not feel the suboxone has been effective for her pain. She last took this medication three days ago. She continues to use ice, heat, pain cream, and lidocaine patches for pain control. She continues on gabapentin which we previously felt would be beneficial for back pain but she finds this most effective for neuropathy. She is on a restricted plan through her insurance so only specific providers can prescribe her medications. The following portions of the patient's history were reviewed and updated as appropriate: current medications and problem list. Pertinent positive ROS are listed above in HPI. Patient Active Problem List Diagnosis Anemia Macrocytic [...] (HCC) Fracture Vertebra Compression Thoracic Closed Subsequent ALLERGIES/CONTRAINDICATIONS Allergies Allergen Reactions Azithromycin Nausea And Vomiting and GI intolerance CURRENT MEDICATIONS Current Outpatient Medications: acetaminophen (TYLENOL) 500 mg tablet, Take 1 tablet (500 mg total) by mouth every 6 (six) hours asneeded for pain., Disp: 100 tablet, Rfl: 11 aspirin 81 mg chewable tablet, Chew 1 tablet (81 mg total) daily., Disp: 90 tablet, Rfl: 3 cholecalciferol (Vitamin D3) 50 mcg (2,000 Unit) tablet, Take 1 tablet (50 mcg total) by mouth daily., Disp: 90 tablet, Rfl: 3 diclofenac sodium (VOLTAREN) 1 % gel, Apply 2 g topically 4 (four) times a day. Apply to abdomen orother areas of pain., Disp: 200 g, Rfl: 3 ergocalciferol (Vitamin D2) 50,000 Unit capsule, Take 1 capsule (50,000 Units total) by mouth once a week., Disp: 8 capsule, Rfl: 0 gabapentin (Neurontin) 300 mg capsule, TAKE 1 CAPSULE BY MOUTH THREE TIMES DAILY WITH AN [id number] MG CAPSULE AT BEDTIME, Disp: 90 capsule, [...] mouth daily., Disp: 30 tablet, Rfl: 3 mycophenolate (CellCept) 500 mg tablet, TAKE 2 TABLETS(1000 MG) BY MOUTH TWICE DAILY, Disp: 360 tablet, Rfl: 3 ondansetron (ZOFRAN) 4 mg tablet, Take 1 tablet (4 [...] twice daily, Disp: 180 capsule, Rfl: 3 tacrolimus (PROGRAF) 1 mg capsule, Take 3 capsules (3 mg total) by mouth 2 (two) times a day Indications: liver transplant rejection prevention. With 0.5mg caps for total 3.5mg twice daily, Disp: 540capsule, Rfl: 3 teriparatide (Forteo) 20 mcg/dose (600mcg/2.4mL) injection, Inject 0.08 mL (20 mcg total) under theskin daily., Disp: 2.4 mL, Rfl: 11 traZODone (DESYREL) 50 mg tablet, Take 3 tablets (150 mg total) by mouth at bedtime., Disp: 180 tablet, Rfl: 3 triamcinolone (Nasacort) 55 mcg/actuation nasal spray, Administer 2 sprays into each nostril daily., Disp: 16.5 mL, Rfl: 11 buprenorphine-naloxone (Suboxone) 2-0.5 mg per SL tablet, Place 3 tablets under the tongue 2 (two) times a day., Disp: 168 tablet, Rfl: 0 venlafaxine (Effexor) 75 mg 24 hr tablet, Take 1 tablet (75 mg total) by mouth daily with breakfastfor 14 days, THEN 2 tablets (150 mg total) daily with breakfast. (Patient not taking: Reported on 12/02/2023), Disp: 90 tablet, Rfl: 3 OBJECTIVE VITAL SIGNS Vitals: 12/02/23 1456 BP: (!) 85/57 Pulse: 86 Resp: Temp: PHYSICAL EXAMINATION General: Well-nourished, well-developed 33 y.o. in no apparent distress. Awake, alert, age appropriate. HEENT: Head is normocephalic, atraumatic. Conjunctivae and sclerae are clear. Cardiovascular: Regular rate and rhythm without murmurs. Lungs: Clear to auscultation bilaterally with no adventitious sounds . Skin: Warm, pink, and dry. Neurologic: Alert and oriented x3. ASSESSMENT / PLAN IMPRESSION/REPORT/PLAN: #1 Chronic Pain Syndrome #2 Pain Low Back Chronic #3 Multiple Compression Fractures #4 Moderate Or Severe Use Disorder Alcohol Remission (HCC) Christelle continues to struggle with chronic pain especially in her low back. Previously managed with Dilaudid - transitioned to Suboxone August/October 2023. She is not finding much relief with gabapentin, topical pain creams, ice, and heat. She is following with Pain Medicine and has received lumbar spine medial nerve block procedure which provided little to no relief. Unable to participate in Pain Rehabilitation Program offered at most recent Pain Medicine office visit (10/29/2023). Moving forward, I recommend re-enrollment in physical therapy (has not been enrolled in formal PT in greater than 1 year) and increasing buprenorphine-naloxone 2 - 0.5 mg SL tablet to three tablets BID. If this is not effective, we can continue to increase dose. I also gave her a referral to an external Pain Center such as [facility] if she has an interested in such consult. - External referral physician (non-[place]) Other orders - Community Internal Medicine office visit (clinic) - buprenorphine-naloxone (Suboxone) 2-0.5 mg per SL tablet; Place 3 tablets under the tongue 2 (two) times a day., Starting Luz Marina 12/02/2023, Until 01/01/2024, Normal - External referral PT (non-[place]) - Community Internal Medicine office visit (clinic); Future; Expected date: 01/13/2024 If symptoms worsen or do not improve, patient is instructed to seek further medical attention. All questions have been answered. Patient demonstrated understanding and verbalized agreement with the plan. Ana Red P.A.-C. documented in this encounter Plan of Treatment Upcoming Encounters Date Type Department Care Team (Late st Contact Info) Description 02/23/2024 8:20 AM CDT Appointment Department of Laboratory Medicine in [address] [phone] Noreen Ansari P.A.-C., M.S. [address] [place] [phone] 04/06/2024 2:30 PM BLEACH BOILER FILLER Clinical Communication Virtual Review in [place], [place] [address] [place] [address] 04/07/2024 3:00 PM BLEACH BOILER FILLER Comprehensive Visit Department of Spine in [address] [phone] Faviola Jiang, YARITZA, C.N.P., M.S.N. 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 300 [facility] [place] [phone] PCP - General Internal Medicine 12/01/21 [facility] [place] [facility] 08/25/21 documented as of this encounter
--- OUTSIDE RECORDS SUMMARY | 2024-02-20 21:47 | XMS_ITS ---
Author Organization [facility] Address [address] [place] [address] Care Team Providers Care Radio Sportscaster Name Role Phone Ana Red P.A.-C. Primary Care Pro vider Transplant Episode Liver Recipient [facility] ([place], [place]) - [facility] Organ Received: Liver Transplanted on 10/10/2022 Marked as Active Follow-up on 10/10/2022 Liver CoordinatorSony Carty R.N. Phone: N/A Fax: N/A Email: N/A [place] Organ Diagnosis Organ Primary Contributory Liver Alcoholic Cirrhosis Infection History Noted Survival Infection Treatment Organism Resolved 12/17/2023 1 year 2 months COVID-19 Infection Donor Information Organ ABO Source Meets Risk Criteria HLA Match Mismatches Cross Match Liver Transplanted B DCD No A: B: DR: Liver Donor Serology Results Anti-HBcAb HBC Total: Negative HBsAg HBsAg: Negative HBsAb HBsAb: Not Done HBV DNA No results on file Anti-HCV HCV: Negative HCV RNA No results on file HAV No results on file Anti-HIV I/II HIV-1: Negative HIV Ag/Ab Combo Assay: Not Done HIV RNA HIV MARK: Negative Anti-HTL V I/II HTLV: Not Done Coccidioides No results on file Anti-CMV CMV IgG: Positive Quantiferon TB No results on file EBV Total No results on file EBV IgG EBV VCA IgG: Positive EBV IgM EBV VCA IgM: Not Done EBNA EBNA IgG: Not Done Measles No results on file Mumps No results on file Rubella No results on file Varicella Zoster No results on file HSV 1 No results on file HSV 2 No results on file Toxoplasm a Toxoplasm a IgG: Negative Cryptococcus Ag No results on file Histoplasma No results on file Strongyloides No results on file Schistos sajan No results on file Trypanosoma cruzi No results on file RPR/VDRL RPR: Negative Syphilis No results on file RSV No results on file SARS CoV-2 No results on file HBV MARK HBV MARK: Negative HCV MARK HCV MARK: Negative Care Team Name Role Phone Fax Email Sony Carty R.N. Liver Coordinator N/A N/A N/A Nataliia Vann M.D. Transplant Surgeon N/A N/A N/A Tyrell Zheng M.D. Referring Provider Transplant Manager Science N/A N/A N/A Events Post-Transplant Pre-Transplant Admitted: 10/10/2022 Referred: 08/14/2021 Transplanted: 10/10/2022 Evaluation began: 2 Discharged: 10/15/2022 Committee: 07/01/2022 Center waitlisted: 3 Appointments (01/21/2024 - 03/22/2024) When With Visit Type Description 01/26/2024 LAB Blood Test Transplant Live r (HCC); Medication Therapy Biomedical Engineering Professor Not 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 01/26/2024 LAB Blood Test Canceled (Andreas nt: Request)
--- OUTSIDE RECORDS SUMMARY | 2024-02-20 21:47 | XMS_ITS | Encounter Summary ---
Author Organization [facility] Address [address] [place] [address] Care Team Providers Care Immunopathologist Name Role Phone Ana Red P.A.-C. Primary Care Pro vider Reason for Visit * Reason Onset Date Comments Phone Contact 11/09/2023 Encounter Details Date Type Department Care Team (Latest Contact Info) Description 11/09/2023 Clinical Communication Ramirez diaz [facility] in [place], [place] [address] [place] [address] August, Sony Mendez R.N. [address] [place] [address] Phone Contact Social History Tobacco Use Types [...] do you attend [facility] or alevism services? Patient declined 02/10/2022 Do you belong to any clubs o r organizations such as mosque groups, unions, fraternal [...] Answer Date Recorded PHQ-2 Score 0 06/18/2023 [facility] of Occupat ional Health - Occupational [...] your living situation today? I have a [facility] place to live 03/12/2023 Education Answer Date Recorded What is the highest level of school you have completed or the highest degree you have received? Associate degree: occupational, technical, or vocational program 07/16/2021 Comments No Sex and Gender Information Value Date Recorded Sex Assigned at Female 04/12/2021 7:39 PM CENSUS ENUMERATOR Legal Sex Female 7:53 PM CENSUS ENUMERATOR Gender Identity Female 04/12/2021 7:39 PM CENSUS ENUMERATOR Sexual Orientation Straight 04/12/2021 7: 39 PM CENSUS ENUMERATOR documented as of this encounter Plan of Treatment Upcoming Encounters Date Type Department Care Team (Late st Contact Info) Description 02/23/2024 8:20 AM CDT Appointment Department of Laboratory Medicine in [address] [phone] Noreen Ansari P.A.-C., M.S. [address] [place] [address] 04/06/2024 2:30 PM CENSUS ENUMERATOR Clinical Communication Virtual Review in [place], [place] [address] [place] [address] 04/07/2024 3:00 PM CENSUS ENUMERATOR Comprehensive Visit Department of Spine in [place], [place] [address] [place] [phone] Faviola Jiang, YARITZA, C.N.P., M.S.N. 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 [address] [place] [address] PCP - General Internal Medicine 12/01/21 [facility] [place] [facility] 08/25/21 documented as of this encounter
--- OUTSIDE RECORDS SUMMARY | 2024-02-20 21:47 | XMS_ITS | Encounter Summary ---
Author Organization [facility] Address [address] [place] [address] Care Team Providers Care Band Straightener Name Role Phone Ana Red P.A.-C. Primary Care Pro vider Reason for Visit * Reason Comments Med Refill Encounter Details Date Type Department Care Team (Late st Contact Info) Description 11/24/2023 Refill Ramirez Navarrete [facility] in [place], [place] [address] [place] [phone] Alissa Rivera, MANAGER MUSIC, C.N.P., M.S. [address] [place] [phone] Med Refill Social History Tobacco Use Types [...] How often do you attend chur or mandaeism services? Patient declined 02/10/2022 Do you belong to any clubs o r organizations such as druze groups, unions, fraternal [...] Answer Date Recorded PHQ-2 Score 0 06/18/2023 [facility] of Occupat ional Health - Occupational Stress [...] your living situation today? I have a [facility] place to live 03/12/2023 Education Answer Date Recorded What is the highest level of school you have completed or the highest degree you have received? Associate degree: occupational, technical, or vocational program 07/16/2021 Comments No Sex and Gender Information Value Date Recorded Sex Assigned at Female 04/12/2021 7:39 PM CHARGE ACCOUNT IDENTIFICATION CLERK Legal Sex Female 7:53 PM CHARGE ACCOUNT IDENTIFICATION CLERK Gender Identity Female 04/12/2021 7:39 PM CHARGE ACCOUNT IDENTIFICATION CLERK Sexual Orientation Straight 04/12/2021 7: 39 PM CHARGE ACCOUNT IDENTIFICATION CLERK documented as of this encounter Plan of Treatment Upcoming Encounters Date Type Department Care Team (Late st Contact Info) Description 02/23/2024 8:20 AM CDT Appointment Department of Laboratory Medicine in [address] [phone] Noreen Ansari P.A.-C., M.S. [address] [place] [phone] 04/06/2024 2:30 PM CHARGE ACCOUNT IDENTIFICATION CLERK Clinical Communication Virtual Review in [place], [place] [address] [place] [address] 04/07/2024 3:00 PM CHARGE ACCOUNT IDENTIFICATION CLERK Comprehensive Visit Department of Spine in [place], [place] [address] [place] [phone] Faviola Jiang, YARITZA, C.N.P., M.S.N. 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 [address] [place] [phone] PCP - General Internal Medicine 12/01/21 [facility] [place] [facility] 08/25/21 documented as of this encounter
--- OUTSIDE RECORDS SUMMARY | 2024-02-20 21:47 | XMS_ITS | Encounter Summary ---
Author Organization [facility] Address [address] [place] [address] Care Team Providers Care Material Distributor Name Role Phone Ana Red, P.A.-C. Primary Care Pro vider Reason for Visit * Reason Comments Med Refill Encounter Details Date Type Department Care Team (Late st Contact Info) Description 12/03/2023 Refill Department of Community Internal Medicine in [place], [place] [address] [place] [address] Ana Red MPAS, P.A.-C. [address] [place] [address] Med Refill Social History Tobacco [...] Answer Date Recorded PHQ-2 Score 0 06/18/2023 [facility] of Occupat ional Health - Occupational Stress [...] your living situation today? I have a [facility] place to live 03/12/2023 Education Answer Date Recorded What is the highest level of school you have completed or the highest degree you have received? Associate degree: occupational, technical, or vocational program 07/16/2021 Comments Unknown Sex and Gender Information Value Date Recorded Sex Assigned at Female 04/12/2021 7:39 PM CUPROUS CHLORIDE HELPER Legal Sex Female 7:53 PM CUPROUS CHLORIDE HELPER Gender Identity Female 04/12/2021 7:39 PM CUPROUS CHLORIDE HELPER Sexual Orientation Straight 04/12/2021 7: 39 PM CUPROUS CHLORIDE HELPER documented as of this encounter Plan of Treatment Upcoming Encounters Date Type Department Care Team (Late st Contact Info) Description 02/23/2024 8:20 AM CDT Appointment Department of Laboratory Medicine in [place] [address] [place] [phone] Noreen Ansari P.A.-C., M.S. [address] [place] [phone] 04/06/2024 2:30 PM CUPROUS CHLORIDE HELPER Clinical Communication Virtual Review in [place], [place] 200 [place] [address] 04/07/2024 3:00 PM CUPROUS CHLORIDE HELPER Comprehensive Visit Department of Spine in [place], [place] [address] [place] [phone] Faviola Jiang, YARITZA, C.N.P., M.S.N. 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 [address] [facility] [place] [address] PCP - General Internal Medicine 12/01/21 [facility] [place] [facility] 08/25/21 documented as of this encounter
--- OUTSIDE RECORDS SUMMARY | 2024-02-20 21:47 | XMS_ITS | Encounter Summary ---
Author Organization [facility] Address [address] [place] [address] Care Team Providers Care Cart Attendant Name Role Phone Ana Red P.A.-C. Primary Care Pro vider Encounter Details Date Type Department Care Team (Latest Contact Info) Description 10/26/2023 Clinical Communication [facility] [place], [place] [address] [place] [phone] Noreen Ansari P.A.-Katrin., M.S. [address] [place] [phone] Social History Tobacco Use Types Packs/Day Years [...] 02/10/2022 How often do you attend [facility] or [facility]? Patient declined 02/10/2022 Do you belong [...] Answer Date Recorded PHQ-2 Score 0 06/18/2023 [facility] Occupational Stress Questionnaire Answer [...] your living situation today? I have a [facility] place to live 03/12/2023 Education Answer Date Recorded What is the highest level of school you have completed or the highest degree you have received? Associate degree: occupational, technical, or vocational program 07/16/2021 Comments No Sex and Gender Information Value Date Recorded Sex Assigned at Female 04/12/2021 7:39 PM SENIOR STORAGE ADMINISTRATOR Legal Sex Female 7:53 PM SENIOR STORAGE ADMINISTRATOR Gender Identity Female 04/12/2021 7:39 PM SENIOR STORAGE ADMINISTRATOR Sexual Orientation Straight 04/12/2021 7: 39 PM SENIOR STORAGE ADMINISTRATOR documented as of this encounter Plan of Treatment Upcoming Encounters Date Type Department Care Team (Late st Contact Info) Description 02/23/2024 8:20 AM CDT Appointment Department of Laboratory Medicine in [address] [phone] Noreen Ansari P.A.-C., M.S. [address] [place] [phone] 04/06/2024 2:30 PM SENIOR STORAGE ADMINISTRATOR Clinical Communication Virtual Review in [place], [place] [address] [place] [phone] 04/07/2024 3:00 PM SENIOR STORAGE ADMINISTRATOR Comprehensive Visit Department of Spine in [place], [place] [address] [place] [phone] Faviola Jiang, YARITZA, C.N.P., M.S.N. 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 [address] [facility] [place] [phone] PCP - General Internal Medicine 12/01/21 [facility] [place] [facility] 08/25/21 documented as of this encounter
--- OUTSIDE RECORDS SUMMARY | 2024-02-20 21:47 | XMS_ITS | Encounter Summary ---
Author Organization [facility] Address [address] [place] [address] Care Team Providers Care Electronic Warfare Technician Name Role Phone Ana Red P.ADeborahC. Primary Care Pro vider Reason for Visit * Auth/Cert (Routine) Specialty Diagnoses / Procedures Referred By Contac t Referred To Contact Diagnoses COVID-19 Infection Neutropenic fever, COVID positive Procedures DIR Referral ID Status Reason Start Date Expiration Date Visits Re quested Visits Authorized [id number] 1 1 Encounter Details Date Type Department Care Team (Latest Contact Info) Description 12/17/2023 3:52 PM CDT - 12/20/2023 7:21 PM CDT Hospital Encounter [facility], [facility], Tenth Floor [address] [place] [phone] Sree Sena M.D. [address] [place] [phone] Miriam Strickland M.D. [address] [place] [phone] Discharge Disposition: Home or Self Care Social [...] you attend [facility] or episcopalian services? Patient declined 02/10/2022 Do you belong to any clubs o r organizations such as hoahaoism groups, unions, fraternal [...] Answer Date Recorded PHQ-2 Score 0 06/18/2023 [facility] [place] - Occupational Stress Questionnaire Answer Date Recorded [...] your living situation today? I have a [facility] place to live 03/12/2023 Education Answer Date Recorded What is the highest level of school you have completed or the highest degree you have received? Associate degree: occupational, technical, or vocational program 07/16/2021 Comments Unknown Sex and Gender Information Value Date Recorded Sex Assigned at Female 04/12/2021 7:39 PM INBOUND CALL CENTER AGENT Legal Sex Female 7:53 PM INBOUND CALL CENTER AGENT Gender Identity Female 04/12/2021 7:39 PM INBOUND CALL CENTER AGENT Sexual Orientation Straight 04/12/2021 7: 39 PM INBOUND CALL CENTER AGENT documented as of this encounter Last Filed Vital Signs Vital Sign Reading Time Taken Comments Blood Pressure 108/77 12/20/2023 6:05 PM CDT Pulse 72 12/20/2023 6:05 PM CDT Temperature 36.9 ??C (98.4 ??F) 12/20/2023 6:05 PM CD T Respiratory Rate 15 12/20/2023 6:05 PM CDT Oxygen Saturation 99% 12/20/2023 6:05 PM CDT Inhaled Oxygen Concentration - - Weight 47.2 kg (104 lb 0.9 oz) 12/19/2023 5:51 A M CDT Height 150 cm (4' 11.06) 12/17/2023 4:00 PM CDT Body Mass Index 20.98 12/17/2023 4:00 PM CDT documented in this encounter Discharge Summaries * Kenny Purdy M.D. - 12/20/2023 1:15 PM CDT DISCHARGE SUMMARY BRIEF OVERVIEW Hospital: [facility] Discharge Provider: Miriam Strickland M.D. Primary Care Provider at Discharge: Primary Care Providers: Ana Red P.A.-C. (General) [address] [place] [phone] Primary Care Provider Primary Care Provider Other Providers: Primary Team: T Liver Transplant Admission Date: 12/17/2023 Discharge Date: 12/20/2023 PRINCIPAL DIAGNOSIS COVID-19 Infection SECONDARY DIAGNOSES Principal Problem: COVID-19 Infection Resolved Problems: * No resolved hospital problems. * CMV viremia DISCHARGE DISPOSITION Home or Self Care [1] ACTIVE ISSUES REQUIRING FOLLOW UP 1) please obtain outpatient blood work at [facility]. You should be able to see these labs on your portal as well. These labs will follow-up on your CMV level on antiviral therapy. 2) we messaged your post patient coordinator front desk and will arrange for follow-up with liver transplant Clinic. 3) we are sending your CMV antiviral therapy (valganciclovir) to [facility] pharmacy downstairs for you to take at home. You should take 2 tablets (900 mg total) by mouth 2 times a day. You should continue this medication until you are told by your liver doctor that your CMV infection has resolved. 4) please follow-up with your primary care provider with an appointment to discuss referral for pain control. You should have a referral for pain clinic, physical therapy, and adjustment of your Suboxone. OUTPATIENT FOLLOW UP Scheduled Appointments 12/24/2023 7:50 AM LAB 01 [facility] Laboratory Medicine 12/29/2023 7:50 AM LAB 01 [facility] Laboratory Medicine 01/05/2024 7:50 AM LAB 01 [facility] Laboratory Medicine 01/12/2024 8:00 AM LAB 01 [facility] Laboratory Medicine 01/19/2024 7:50 AM LAB 01 [facility] Laboratory Medicine For appointment details refer to your Patient Appointment Guide. TEST RESULTS PENDING AT DISCHARGE Pending Labs Order Current Status Tacrolimus, Trough In process Bacteria / Ines Culture, Blood #1 Preliminary result Bacteria / Ines Culture, Blood #2 Preliminary result DETAILS OF HOSPITAL STAY REASON FOR ADMISSION COVID-19 Infection HOSPITAL COURSE Ms. 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 She remained without hypoxia and her chest x-ray was normal on admission. We administered 4 days of remdesivir. We also initiated her on cefepime for neutropenic fever, but stopped after patient was found to have CMV viremia. We initiated patient on IV ganciclovir the patient received for 2 days before we switched to oral valganciclovir. We are arranging for an appointment with liver transplant Clinic for follow-up. We are also arranging for blood work in 1 week for patient to evaluate CMV PCR on therapy. Patient received overall 2 L of intravenous fluids and albumin for hypotension. Of note she has lowblood pressures even an outpatient visits. She does not have orthostatic symptoms. Other infectiousworkup including blood cultures and urine cultures were negative. Regarding her pain, patient did not find her outpatient dose of Suboxone effective. We tried non pharmacologic strategies including heating pads but to no improvement. We trialed home dose of gabapentin, lidocaine patches, and acetaminophen. After discussion of risks and benefits we offered hydromorphone to mg twice daily as needed with the understanding that patient will need to have follow-up with her outpatient physicians regarding pain management. She still pending appointment to see her spine doctors locally. On day of discharge we discussed pain plan with patient and her primary care provider. Per patient's primary care patient has a referral for a consult with the external pain clinic, room to increase the Suboxone, and physical therapy. Patient does not have a plan for opiate dosing from primary care. Therefore we will not prescribe hydromorphone on discharge. Patient will follow-up with her primary care provider. CONSULTS ORDERED DURING THIS ADMISSION None Lipase, P Date Value Ref Range Status 08/02/2021 14 13 - 60 U/L Final EXT Lipase, S Date Value Ref Range Status 10/18/2023 5.0 (L) 13.0 - 60.0 IU/L Final Leukocytes Date Value Ref Range Status 12/20/2023 1.0 (L) 3.4 - 9.6 x10(9)/L Final EXT Leukocytes Date Value Ref Range Status 10/18/2023 2.9 (L) 4.5 - 11.0 thou/cu mm Final EXT Erythrocytes Date Value Ref Range Status 10/18/2023 4.71 4.00 - 5.20 mil/cu mm Final Erythrocytes Date Value Ref Range Status 12/20/2023 3.65 (L) 3.92 - 5.13 x10(12)/L Final Hemoglobin Date Value Ref Range Status 12/20/2023 9.7 (L) 11.6 - 15.0 g/dL Final Hemoglobin, Venous Date Value Ref Range Status 10/11/2022 10.3 (L) 11.6 - 15.0 g/dL Final EXT Hemoglobin Date Value Ref Range Status 10/18/2023 14.1 12.0 - 16.0 g/dL Final Platelet Count Date Value Ref Range Status 12/20/2023 127 (L) 157 - 371 x10(9)/L Final EXT Platelet Count Date Value Ref Range Status 10/18/2023 152 140 - 440 thou/cu mm Final Aspartate Aminotransferase (AST), P Date Value Ref Range Status 09/28/2023 32 8 - 43 U/L Final Aspartate Aminotransferase (AST), S Date Value Ref Range Status 12/20/2023 18 8 - 43 U/L Final EXT Aspartate Aminotransferase (AST), S Date Value Ref Range Status 10/18/2023 38 (H) 10 - 35 IU/L Final Alanine Aminotransferase (ALT), S Date Value Ref Range Status 12/20/2023 14 7 - 45 U/L Final Bilirubin, Total, S Date Value Ref Range Status 12/20/2023 0.5 0.0 - 1.2 mg/dL Final Bilirubin, Total, P Date Value Ref Range Status 09/28/2023 0.6 0.0 - 1.2 mg/dL Final EXT Bilirubin, Total, S Date Value Ref Range Status 10/18/2023 1.0 0.0 - 1.2 mg/dL Final Alkaline Phosphatase, P Date Value Ref Range Status 09/28/2023 184 (H) 35 - 104 U/L Final EXT Alkaline Phosphatase, S Date Value Ref Range Status 10/18/2023 203 (H) 35 - 104 IU/L Final Alkaline Phosphatase, S Date Value Ref Range Status 12/20/2023 115 (H) 35 - 104 U/L Final BUN (Blood Urea Nitrogen), P Date Value Ref Range Status 09/28/2023 12 6 - 21 mg/dL Final EXT BUN (Blood Urea Nitrogen), S/P Date Value Ref Range Status 10/18/2023 21 (H) 6 - 20 mg/dL Final BUN (Blood Urea Nitrogen), S Date Value Ref Range Status 12/20/2023 4 (L) 6 - 21 mg/dL Final Creatinine Date Value Ref Range Status 12/20/2023 0.73 0.59 - 1.04 mg/dL Final 09/28/2023 0.61 0.59 - 1.04 mg/dL Final EXT Creatinine, S Date Value Ref Range Status 10/18/2023 0.57 0.50 - 0.90 mg/dL Final EXT Glucose Date Value Ref Range Status 10/18/2023 203 (H) 70 - 99 mg/dL Final Glucose Date Value Ref Range Status 10/10/2022 162 (H) 70 - 140 mg/dL Final Glucose, P Date Value Ref Range Status 09/28/2023 229 (H) 70 - 140 mg/dL Final Glucose, S Date Value Ref Range Status 12/20/2023 139 70 - 140 mg/dL Final Glucose, POCT, B Date Value Ref Range Status 12/31/2022 153 (H) 70 - 140 mg/dL Final 03/13/2022 134 70 - 140 mg/dL Final Comment: ----ADDITIONAL INFORMATION---- Performed at the Point of Care INR Date Value Ref Range Status 12/20/2023 1.4 0.9 - 1.1 Final Comment: ----ADDITIONAL INFORMATION---- Standard intensity warfarin therapeutic range: 2.0 to 3.0 High intensity warfarin therapeutic range: 2.5 to 3.5 12/17/2023 1.2 0.9 - 1.1 Final Comment: ----ADDITIONAL INFORMATION---- Standard intensity warfarin therapeutic range: 2.0 to 3.0 High intensity warfarin therapeutic range: 2.5 to 3.5 CONDITION AT DISCHARGE good Discharge instructions were provided to the patient and caregiver(s). Total time spent in discharge services today: 60 minutes. documented in this encounter Medications at Time of Discharge acetaminophen (TYLENOL) 500 mg tablet Take 1 tablet (500 mg total) by mouth every 6 (six) hours as needed for pain. 100 tablet 11 01/26/2023 aspirin 81 mg chewable tablet Chew 1 tablet (81 mg total) daily. 90 tablet 3 02/15/2023 cholecalciferol (Vitamin D3) 50 mcg (2,000 Unit) [...] 3.5mg twice daily 180 capsule 3 08/16/2023 5 tacrolimus (PROGRAF) 1 mg capsuleIndication s:prevention of liver transplant rejection Take 3 capsules (3 mg total) by mouth 2 (two) times a day Indications: liver transplant rejection prevention. With 0.5mg caps for total 3.5mg twice daily 540 capsule 3 08/16/2023 teriparatide (Forteo) 20 mcg/dose (600mcg/2.4mL) injection Inject 0.08 mL (20 mcg total) under the skin daily. 2.4 mL 10/27/2023 traZODone (DesyreL) 50 mg tablet TAKE 3 TABLETS(150 MG) BY MOUTH AT BEDTIME 180 tablet 3 12/06/2023 triamcinolone (Nasacort) 55 mcg/actuation nasal spray Administer 2 sprays into each nostril daily. 16.5 mL 11 08/30/2023 valGANciclovir (Valcyte) 450 mg tablet Take 2 tablets (900 mg total) by mouth 2 (two) times a day. 120 tablet 12/20/2023 4 buprenorphine-nal oxone (Suboxone) 8-2 mg per SL tablet Place 1 tablet under the tongue daily. 28 tablet 12/06/2023 4 gabapentin (Neurontin) 300 mg capsuleIndication s:Neuropathy TAKE 1 CAPSULE BY MOUTH THREE TIMES DAILY WITH AN ADDITIONAL 300 MG CAPSULE AT BEDTIME 90 capsule 2 11/02/2023 4 ondansetron (ZOFRAN) 4 mg tablet Take 1 tablet (4 mg total) by mouth every 6 (six) hours as needed for nausea or vomiting. 30 tablet 03/29/2023 4 venlafaxine (Effexor) 75 mg 24 hr tablet Take 1 tablet (75 mg total) by mouth daily with breakfast for 14 days, THEN 2 tablets (150 mg total) daily with breakfast. 90 tablet 3 10/22/2023 4 documented as of this encounter Progress Notes * Kenny Purdy M.D. - 12/20/2023 2:17 PM CDT We have stopped patient's CellCept considering neutropenia. Her current immunosuppression is only tacrolimus with a tacrolimus level goal between 6 and 8. * Miriam Strickland M.D. - 12/20/2023 11:00 AM CDT SUBJECTIVE CHIEF COMPLAINT / REASON FOR ADMISSION The patient was seen on multidisciplinary transplant team rounds. I agree with the management plansas reviewed with the transplant house staff. ASSESSMENT / PLAN #1 Status post liver transplantation for alcohol associated cirrhosis, October 11 2023 (Liver) #2 Immunosuppression due to drugs #3 Covid-19 infection #4 CMV Viremia #5 Neutropenic fever #6 Osteoporosis #7 Compression fractures #8 Diabetes No further fevers. COVID-19 and CMV viremia. COVID being treated with remdesivir. She is currently asymptomatic of any COVID. Oxygenating well no cough. She can be discharged. She will receive the 4th dose of remdesivir today. She will continue on valganciclovir for CMV reactivation. She will have follow- up outpatient labs following her CMV quant. Her CellCept was held for neutropenia and will continue to hold. Normal liver enzymes and function tests. We will aim for tacrolimus levels of 6-8. Her problem list and plan is well documented in the team notes. Disposition: Discharge later today with follow-up in the outpatient clinic * Kenny Purdy M.D. - 12/19/2023 10:33 AM CDT LIVER TRANSPLANT INPATIENT PROGRESS NOTE SUBJECTIVE INTERVAL HISTORY - patient was afebrile overnight and is not requiring oxygen. She was able to sleep well. She received 0.5 L of IV fluids and albumin yesterday. She reports that she has low blood pressures outpatient as well and does not get lightheadedness. She is able to ambulate by herself. She is eating betterthan the day before and has more energy. - CMV PCR was positive. We stopped antibiotics today and started antiviral. OBJECTIVE PHYSICAL EXAMINATION VITAL SIGNS: Temperature: [36.6 ??C-36.9 ??C] 36.9 ??C Resp Rate: [16-18] 16 Blood Pressure: (72-104)/(56-74) 104/74 SpO2: [93 %-100 %] 93 % Weight: [47.2 kg] 47.2 kg BMI (Calculated): [21 kg/m??] 21 kg/m?? Pulse Rate: [67-75] 73 General: Appears stated age, in no acute distress. Underweight HEENT: atraumatic, normocephalic Heart: Rate normal. No lower extremity edema. Lungs: Able to breath comfortably without requiring oxygen Abdomen: Soft, nondistended. +mildly tender, +surgical scar well-healed Musculoskeletal: No joint swelling or erythema. Skin: No rashes noted. Psych: Oriented, answering questions appropriately. DIAGNOSTICS Results from last 7 days Lab Units 12/19/23 0642 12/18/23 0612/17/23 1806 WBC x10(9)/L 0.8* 1.0* 0.8* HEMOGLOBIN g/dL 9.8* 9.5* 10.6* HEMATOCRIT % 29.9* 28.3* 30.8* PLATELETS AUTO x10(9)/L 120* 111* 116* Results from last 7 days Lab Units 12/19/23 0642 12/18/23 0608 12/17/23 1806 SODIUM mmol/L 144 138 136 CREATININE mg/dL 0.82 0.85 0.71 ESTIMATED GFR EGFR mL/min/BSA >90 >90 >90 BUN mg/dL 4* 4* 2* CHLORIDE mmol/L 112* 105 102 MAGNESIUM mg/dL 1.5* -- -- Results from last 7 days Lab Units 12/19/23 0642 12/18/23 0608 12/17/23 1806 INR 1.3 1.1 1.2 Results from last 7 days Lab Units 12/19/23 0642 12/18/23 0608 12/17/23 1806 ALBUMIN g/dL 3.3* 3.0* 3.6 AST U/L 16 16 20 ALT U/L 13 20 22 ALK PHOS U/L 115* 125* 155* BILIRUBIN DIRECT P mg/dL -- -- 0.3 BILIRUBIN TOTAL mg/dL 0.5 0.6 1.1 Intake/Output Summary (Last 24 hours) at 12/19/2023 1033 Last data filed at 12/19/2023 0556 Gross per 24 hour Intake 1780 ml Output 400 ml Net 1380 ml HOSPITAL PROBLEM LIST #1 COVID-19 Infection ASSESSMENT / PLAN #1 Status post liver transplantation for alcohol associated cirrhosis, October 11 2023 (Liver) #2 Immunosuppression Biochemical liver tests are normal. We are maintaining tacrolimus at her prior dose. 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 Of note patient has a history of CMV mismatch. We will initiate ganciclovir IV today with plan to switch to oral valganciclovir upon discharge. CMV viremia superimposed COVID is likely the etiology of her presentation. #5 Covid-19 infection #6 Neutropenia We are currently monitoring neutropenia without filgrastim. We have initiated remdesivir as of December 16 and today is day 3. Patient has not required supplemental oxygen and her chest appears normal on chest x-ray. We will stop IV cefepime today. Blood cultures and urine cultures with no growth to date. - Remdesivir for an overall 5 day course - Blood cultures with no growth to date - We may consider Neupogen if neutropenia does not improve #7 Hepatic artery prophylaxis - Continue aspirin 81 mg #8 Renal function Patient's baseline creatinine is 0.6. Her creatinine is slightly up at 0.8 since admission. She hasreceived 2L IVFs and some albumin since admission. #9 Osteoporosis She has known osteoporosis based on her bone mineral density scan and history of compression fractures. She has been evaluated by endocrinology for this and is taking vitamin-D and is on teriparatide. Since teriparatide is not on formulary we will hold while patient is inpatient. #10 Compression fractures #11 Pain control Patient has known chronic compression fractures of the T6-L5 vertebral bodies with height loss. Shehas undergone medial branch blocks in July 2023. She also has been on hydromorphone therapy for pain control in the past. However she was transitioned to Suboxone by her outpatient physician and waspending evaluation by spine surgery locally. We trialed Suboxone inpatient however patient's pain was uncontrolled. We discussed risk versus benefits of offering hydromorphone to patient for pain control. We will offer at low dose as needed. Patient understands this is not long-term and she will need to follow-up with pain management outpatient. We will also continue gabapentin at her home dose, which is 100/100/200 mg daily. #12 Diabetes She has posttransplant diabetes with risk factor being chronic pancreatitis. She was requiring NPH insulin twice daily posttransplant but is currently off of insulin. Her last documented hemoglobin A1c was 6.6%. #13 GERD Patient has PPI responsive heartburn that improved on pantoprazole. We are continuing pantoprazole per her home dose #14 Microcytic anemia MCV is 80 with a hemoglobin 9.5 which is lower than her baseline. Iron studies did not demonstrate iron-deficiency. She has elevated ferritin which is chronic. Of note donor biopsy was negative for iron stains. #15 Proteinuria Patient has worsening proteinuria on urinalysis with a urine protein at 74 mg/dL. This may be in the setting of calcineurin inhibitor effect VTE Prophylaxis: Heparin SQ 5,000 units BID GI Prophylaxis: pantoprazole (has PPI responsive heartburn) Anticipated Disposition: home when improved medically Discussed with attending block cutter, Dr. Jaida Purdy MD PGY-7 Transplant Hepatology Fellow * Sree Sena M.D. - 12/19/2023 7:32 AM CDT SUBJECTIVE CHIEF COMPLAINT / REASON FOR ADMISSION The patient was seen on multidisciplinary transplant team rounds. I agree with the management plansas reviewed with the transplant house staff. Ms. Carias is a 33 year old woman with history of donor liver transplantation on October 10, 2022 for alcohol associated cirrhosis who is admitted for neutropenic fever in setting of Covid-19 infection and CMV viremia. ASSESSMENT / PLAN #1 Status post liver transplantation for alcohol associated cirrhosis, October 11 2023 (Liver) #2 Immunosuppression due to drugs #3 Covid-19 infection #4 CMV Viremia #5 Neutropenic fever #6 Osteoporosis #7 Compression fractures #8 Diabetes The patient is admitted with neutropenic fever and recent diagnosis of COVID-19 and CMV viremia. She is currently afebrile and hemodynamically stable on room air. Has hypotension at baseline and did receive albumin and LR yesterday. CMV level came back at 521. We will plan to initiate IV ganciclovir today. She was initially placed on cefepime for neutropenic fever and cultures are pending, but webelieve we can discontinue the cefepime today. Her CellCept was held for neutropenia. Remdesivir has been initiated for COVID-19. Contingency plan for Neupogen, if needed. * Zenobia Treviño Pharm.D., R.Ph., BCTXP - 12/18/2023 2:04 PM CDT Transplant Pharmacist Note Catia Carias is a 33 y.o. status post liver transplant on 10/10/2022. Admitted on 12/17/2023 forneutropenic fever and COVID. Indication for transplant: etoh cirrhosis Post-transplant course notable for: pancreatic duct stone s/p lithotripsy and unsuccessful ERCP x2.An EUS guided pancreatic rendezvous sphincterotomy 12/2022 was able to stent the area. This stent has since been removed. PMH: chronic pancreatitis, anxiety, depression, ADHD, osteoporosis c/b compression fractures in spine, T2DM OBJECTIVE Immunosuppression Lab Results Component Value Date TACROLIMUS 7.8 12/18/2023 Kidney function: Lab Results Component Value Date CREATININE 0.85 12/18/2023 EGFR >90 12/18/2023 CSTCECYSTATC 0.85 10/20/2023 EGFRCYSTATNC 100 10/20/2023 Liver Function: Lab Results Component Value Date ALT 20 12/18/2023 AST 16 12/18/2023 GGT 46 (H) 10/10/2022 ALKPHOS 125 (H) 12/18/2023 BILITOT 0.6 12/18/2023 ASSESSMENT / PLAN Recommendations & Follow Up Blood, urine cultures and CMV PCR in process Follow ANC - meets criteria for filgrastim Watch blood pressure as has been hypotensive thus far. May need midodrine Summary of Pharmacotherapy Plan Immunosuppression: Mycophenolate on hold with COVID and neutropenia Tacrolimus adjusted to goal (below) Infectious Disease: Prophylaxis: CMV D+/R- *MISMATCH; EBV Dpend/R+ completed Treatment: Neutropenic fever: cefepime 12/16 - present COVID: remdesivir x5 days (12/16 - 12/20) CV: hypotensive this admission. Has received 1.5L of crystalloid thus far and albumin is anticipated. Pulm: Symptomatic with fever/cough, but is saturating well on room air. Pain: home gabapentin, lidocaine patches, and PRN hydromorphone. Suboxone held as patient reports not using recently Renal: sCr just slightly elevated from baseline of 0.6. Prophylaxis: VTE: Subcutaneous heparin GI: Proton pump inhibitor (home med) HAT: Aspirin 81 mg daily Drug Interactions: None clinically significant Home Medications: Held: suboxone, mmf, teriperatide Changed: none yet Patient own medications: none Dismissal Planning No pharmacologic barriers to dismissal are identified at this time. Changes to medications anticipated at dismissal: TBD Transplant Info & Therapeutic Drug Monitoring Goals Transplant Summary Liver Transplant - 10/10/2022 (#1) - [facility] POD: 1 year 2 months Protocols All Organs - Lab Interval Every 2 Weeks Liver Primary [place] Diagnosis Alcoholic Cirrhosis Liver Secondary [place] Diagnosis -- Donor Serologies Recipient Liver Donor (Pre-donation Results) Anti-CMV CMV IgG: Negative Positive CMV IgM: Negative -- CMV Nucleic Acid: Undetected -- EBV IgG EBV VCA IgG: Positive Positive EBV IgM EBV VCA IgM: Negative Not Done Toxoplasma Toxoplasma IgG: Negative Negative Toxoplasma IgG Value: <3 -- Active Patient Thresholds Lab Low High Effective Since Comment Tacrolimus Level 6 8 10/27/2022 per Alissa Treviño, Pharm.D., R.Ph., BCTXP [phone] * Kenny Purdy M.D. - 12/18/2023 10:09 AM CDT LIVER TRANSPLANT INPATIENT PROGRESS NOTE SUBJECTIVE INTERVAL HISTORY - patient was afebrile overnight and is not requiring oxygen. She received overall 1.5 L of IV fluids for mild hypotension. She still has a nonproductive cough. Chest x-ray does not show pulmonary opacities. Patient feels slightly better this morning compared to yesterday. She is looking forward toeating breakfast soon. She was initiated on remdesivir yesterday for COVID-19. We are pending bloodcultures and urine cultures as part of her infectious workup and are sending CMV PCR to evaluate for CMV infection. OBJECTIVE PHYSICAL EXAMINATION VITAL SIGNS: Temperature: [36.4 ??C-36.6 ??C] 36.6 ??C Heart Rate: [83] 83 Resp Rate: [16-18] 18 Blood Pressure: (76-100)/(57-69) 94/66 SpO2: [96 %-100 %] 97 % Height: [150 cm] 150 cm Weight: [45.6 kg-46.8 kg] 46.8 kg BSA (Calculated - sq m): [1.38 sq meters] 1.38 sq meters BMI (Calculated): [20.3 kg/m??-20.8 kg/m??] 20.8 kg/m?? Pulse Rate: [64-124] 74 General: Appears stated age, in no acute distress. Underweight HEENT: atraumatic, normocephalic Heart: Rate normal. No lower extremity edema. Lungs: Able to breath comfortably without requiring oxygen Abdomen: Soft, nondistended. +mildly tender, +surgical scar well-healed Musculoskeletal: No joint swelling or erythema. Skin: No rashes noted. Psych: Oriented, answering questions appropriately. DIAGNOSTICS Results from last 7 days Lab Units 12/18/23 0608 12/17/23 1806 WBC x10(9)/L 1.0* 0.8* HEMOGLOBIN g/dL 9.5* 10.6* HEMATOCRIT % 28.3* 30.8* PLATELETS AUTO x10(9)/L 111* 116* Results from last 7 days Lab Units 12/18/23 0608 12/17/23 1806 SODIUM mmol/L 138 136 CREATININE mg/dL 0.85 0.71 ESTIMATED GFR EGFR mL/min/BSA >90 >90 BUN mg/dL 4* 2* CHLORIDE mmol/L 105 102 Results from last 7 days Lab Units 12/18/23 0608 12/17/23 1806 INR 1.1 1.2 Results from last 7 days Lab Units 12/18/23 0608 12/17/23 1806 ALBUMIN g/dL 3.0* 3.6 AST U/L 16 20 ALT U/L 20 22 ALK PHOS U/L 125* 155* BILIRUBIN DIRECT P mg/dL -- 0.3 BILIRUBIN TOTAL mg/dL 0.6 1.1 Intake/Output Summary (Last 24 hours) at 12/18/2023 1010 Last data filed at 12/18/2023 0558 Gross per 24 hour Intake 1840 ml Output -- Net 1840 ml HOSPITAL PROBLEM LIST #1 COVID-19 Infection ASSESSMENT / PLAN #1 Status post liver transplantation for alcohol associated cirrhosis, October 11 2023 (Liver) #2 Immunosuppression #3 CMV mismatch (D CMV+/R CMV-) Biochemical liver tests have been intermittently elevated since liver transplant and were thought to be in the setting of steatosis. Donor wedge biopsy with steatosis and patient also has diabetes (likely in setting of pancreatic insufficiency). However, liver tests now have primarily normalized with the exception of mildly elevated alkaline phosphatase. We will maintain tacrolimus at prior dose and stop mycophenolate. - Send CMV PCR - Continue tacrolimus 3.5 mg 2x/day - We will stop mycophenolate 1000 mg 2x/day #4 Covid-19 infection #5 Neutropenia Patient has worsening neutropenia in the setting of COVID infection. Considering her history of liver transplant and requiring immunosuppression she is at high risk of progression of COVID infection.She is currently not requiring supplemental oxygen and has normal appearing chest x-ray. She was initiated on remdesivir as of December 16. - Cefepime 2g q12h (based on CrCl) (12/16 - ) - Remdesivir 200 mg IV for 1 day, followed by 100 mg IV for 4 days - Blood cultures x2, urine culture prior to initiating antibiotics - We will consider Neupogen if neutropenia does not improve #4 Hepatic artery prophylaxis - Continue aspirin 81 mg #5 Renal function Patient's baseline creatinine is 0.6. Her creatinine is slightly up at 0.85 since admission after receiving 1.5 L of IV fluids. #6 Osteoporosis She has known osteoporosis based on her bone mineral density scan and history of compression fractures. She has been evaluated by endocrinology for this and is taking vitamin-D and is on teriparatide. Since teriparatide is not on formulary we will hold while patient is inpatient. #7 Compression fractures #8 Pain control Patient has known chronic compression fractures of the T6-L5 vertebral bodies with height loss. Shehas undergone medial branch blocks in July 2023. She also has been on hydromorphone therapy for pain control in the past. However she was transitioned to Suboxone by her outpatient physician and waspending evaluation by spine surgery locally. We trialed Suboxone inpatient however patient's pain was uncontrolled. We discussed risk versus benefits of offering hydromorphone to patient for pain control. We will offer at low dose as needed. Patient understands this is not long-term and she will need to follow-up with pain management outpatient. We will also continue gabapentin at her home dose. #9 Diabetes She has posttransplant diabetes with risk factor being chronic pancreatitis. She was requiring NPH insulin twice daily posttransplant but is currently off of insulin. Her last documented hemoglobin A1c was 6.6%. #10 GERD Patient has PPI responsive heartburn that improved on pantoprazole. We are continuing pantoprazole per her home dose #11 Microcytic anemia MCV is 80 with a hemoglobin 9.5 which is lower than her baseline. We will send for iron studies to evaluate for iron-deficiency. #12 Proteinuria Patient has worsening proteinuria on urinalysis with a urine protein at 74 mg/dL. This may be in the setting of calcineurin inhibitor. VTE Prophylaxis: Heparin SQ 5,000 units BID GI Prophylaxis: pantoprazole (has PPI responsive heartburn) Anticipated Disposition: home when improved medically Discussed with attending block cutter, Dr. Jaida Purdy MD PGY-7 Transplant Hepatology Fellow documented in this encounter H&P Notes * Sree Sena M.D. - 12/18/2023 10:01 AM CDT Liver General Admission REFERRAL: self, from home SUBJECTIVE CHIEF COMPLAINT / REASON FOR ADMISSION Neutropenic fever HISTORY OF PRESENT ILLNESS The patient was seen on multidisciplinary transplant team rounds. I agree with the management plansas reviewed with the transplant house staff. Ms. Carias is a 33 year old woman with history of donor liver transplantation on October 10, 2022 for alcohol associated cirrhosis who is admitted for neutropenic fever in setting of Covid-19 infection. She initially began feeling poorly last week Wednesday. She was evaluated in [place] and found to be COVID positive. She is subsequently noted ongoing fevers and feeling unwell. She is markedly neutropenic and was directly admitted to the hospital service for neutropenic fever. OBJECTIVE PHYSICAL EXAMINATION General: Appears well, no acute distress HEENT: atraumatic, normocephalic, anicteric Abdomen: Nondistended Extremities: No edema Skin: No rashes noted. No jaundice Psych: Normal mood and affect DIAGNOSTICS I have reviewed laboratory, imaging, and other diagnostic studies. Pertinent findings as follows: Please see H&P for summarized lab and imaging studies ASSESSMENT / PLAN #1 Status post liver transplantation for alcohol associated cirrhosis, October 11 2023 (Liver) #2 Immunosuppression due to drugs #3 Covid-19 infection #4 Neutropenic fever #6 Osteoporosis #7 Compression fractures #9 Diabetes The patient is admitted with neutropenic fever and recent diagnosis of COVID-19. Cultures are pending at this time. She was initiated on cefepime for neutropenic fever. Her CellCept was held for neutropenia. Remdesivir has been initiated for COVID-19. We will add CMV PCR to her testing. Iron studies to be obtained for her microcytic anemia. As we gather additional data, we will consider Neupogen i n the coming days. * Kenny Purdy M.D. - 12/17/2023 2:11 PM CDT Liver General Admission REFERRAL: self, from home SUBJECTIVE CHIEF COMPLAINT / REASON FOR ADMISSION Neutropenic fever HISTORY OF PRESENT ILLNESS Ms. Carias is a 33 yo F with history of donor liver transplantation on October 10, 2022 for alcohol associated cirrhosis, chronic pancreatitis, anxiety, depression, ADHD, multilevel compression fractures in thoracolumbar spine, osteoporosis, diabetes (A1c 6.6%), who is presenting for neutropenic fever in setting of Covid-19. Patient had called our liver patient coordinator front desk that she was in the [facility] Emergency Department for worsening shortness of breath and cough. Her symptoms have been ongoing for 9 daysprior to her emergency department visit and include cough, shortness of breath, fevers ranging [id number]- 101?? F, chills and feeling unwell. She tested positive for COVID. Her blood work revealed a white blood cell count of 0.8 and her absolute neutrophil count was 200. Other tests included Hgb 10.0, PLT 115, Na 130, K 3.9, BUN 10, Cr 1.0, ALT 31, AST 26, Tbili 1.0, Dbili 0.5, ALP 136. Of note herlast outpatient blood work here at [facility] from October 20, 2023 revealed a white blood cell countof 2.1 and an ANC of 1060. At that time patient was experiencing elevated liver tests with alkalinephosphatase of 202 and ALT of 76. Outside hospital records show chest x-ray performed on December 13 with no acute or significant findings. Patient reports going to a concert last Wednesday, following which she developed congestion, fever, and nonproductive cough. Her last fever was last night with a T-max of 101?? F. She also has been experiencing weakness and fatigue. She has mild abdominal pain, nonlocalizing. Unrelated to meals. She has been able to hydrate and eat at home. Her sick contacts are her fiance who was having similar symptoms about 2 weeks ago. He was not diagnosed with COVID. Patient has received a COVID vaccine prior to her transplant. However since her liver transplant she has not developed COVID. She does not have any rashes, blood in stool, blood in urine. She has some knee pain on the right side. Liver transplant surgery was performed by Dr. Vann. Patient had duct-duct bile duct anastomosis, piggyback hepatic venous outflow, standard end-to-end PV anastomosis, and donor common hepatic artery to recipient common hepatic artery anastomosis. Patient was CMV mismatch (D CMV+/R CMV-). She was initiated on valcyte for CMV mismatch and tacrolimus 3.5 mg BID and cellcept 1000 mg BID for immunosuppression with prednisone taper. Liver explant pathology demonstrated establish micronodular cirrhosis with mild steatosis and features of steatohepatitis (stage 4/4), consistent with alcohol associated liver disease. Liver donor wedge biopsy showed mild microvesicular steatosis (10%). There was no significant portal inflammation or fibrosis on the donor wedge biopsy. Her postoperative course was complicated by pancreatic duct stone for which lithotripsy and standard ERCP approach was unsuccessful x2. Patient underwent EUS-guided pancreatic rendezvous sphincterotomy 12/2022 during which temporary plastic pancreatic stent was placed into ventral pancreatic duct. Repeat ERCP 01/2023 removed plastic stent and upsized to 8.5Fr x 14 cm. ERCP 05/2023 with plastic pancreatic stent removed from duodenum. She was last seen in [facility] 10/2023 ([facility]) for annual follow up. During that visit, discussion centered around back pain which has been limiting for patient (limited work). Gabapentin 300 mg TID had not been effective for patient. Patient had been initiated on suboxone by PCP. She had trialed THC due to pain. She was awaiting appointment with spine team locally. Last immunosuppression was tacrolimus 3.5 mg 2x/day and mycophenolate 1000 mg 2x/day. She was evaluated by endocrinology on October 25, 2023 for osteoporosis and posttransplant diabetes. Of note she has osteoporosis based on multiple vertebral fractures and her most recent bone density scan showed a total hip T- score of -2.7. She was not recommended take bisphosphonates considering patient was thinking of fertility in association of bisphosphonates with effects. She was initiated on teriparatide for bone health. She was not recommended on any specific therapies for her diabetes. She was recommended on a periodic follow-up of her hemoglobin A1c by endocrinology. She was seen by pain Medicine on October 29, 2023. It was noted the patient was transitioned from hydromorphone therapy by her primary care provider to Suboxone therapy. Patient is here with her fiance. She is planning on a wedding in February 2024. She has a cat and a dog at home. She used to work at [employer] previously. However her back pain hasmade it difficult to work recently. She does not smoke cigarettes. She does not drink alcohol. She reported some cannabinoid use (edibles only) because it helps her with pain. Medications: Aspirin 81 mg Buprenorphine-naloxone 2-0.5 mg per SL tablet - patient not taking at home Gabapentin 300 mg TID Mycophenolate 1000 mg 2x/day Pantoprazole 40 mg Tacrolimus 3.5 mg 2x/day Trazodone 150 mg Teriparatide 20 mcg/dose under skin daily - patient does not have with her Vitamin D3 50,000 units weekly, last dose next week Last tacrolimus trough 1.3 10/20/23 REVIEW OF SYSTEMS ROS negative, except as mentioned in HPI. OBJECTIVE PHYSICAL EXAMINATION General: Appears stated age, in no acute distress. Weak appearing. Able to speak in full sentences.Tattoos HEENT: atraumatic, normocephalic Heart: Regular rate and rhythm. No murmurs appreciated. No lower extremity edema. Lungs: Clear to auscultation bilaterally, +decreased breath sounds Abdomen: Soft, nondistended. +mildly tender, +surgical scar well-healed Musculoskeletal: No joint swelling or erythema. Skin: No rashes noted. Psych: Oriented, answering questions appropriately. DIAGNOSTICS I have reviewed laboratory, imaging, and other diagnostic studies. Pertinent findings as follows: Please see H&P for summarized lab and imaging studies ASSESSMENT / PLAN #1 Status post liver transplantation for alcohol associated cirrhosis, October 11 2023 (Liver) #2 Immunosuppression Biochemical liver tests have been intermittently elevated since liver transplant and were thought to be in the setting of steatosis. Donor wedge biopsy with steatosis and patient also has diabetes (likely in setting of pancreatic insufficiency). However, liver tests at most recent ED visit were documented normal. We would maintain tacrolimus at prior dose and hold mycophenolate considering neutropenia and Covid-19. - Continue tacrolimus 3.5 mg 2x/day - Hold mycophenolate 1000 mg 2x/day #3 Covid-19 infection #4 Neutropenia Patient has worsening neutropenia compared to her last blood work at [facility] from October 2023. Neutrophils have decreased from 1000 to 200. This is most likely in the setting of COVID infection that was recently diagnosed. Emergency department x-ray was normal from December 13. However considering neutropenia, persistent respiratory symptoms, and immunosuppression in the setting of liver transplantation, we will pursue infectious workup and initiate cefepime because she was recently febrile. Wewill also dose of remdesivir if patient's liver tests are normal. - Cefepime 2g q12h (based on CrCl) - Remdesivir 200 mg IV for 1 day, followed by 100 mg IV for 4 days (if liver tests are normal) - Blood cultures x2, urinalysis, urine culture prior to initiating antibiotics - Chest x-ray #4 Hepatic artery prophylaxis - Continue aspirin 81 mg #5 Renal function Patient's baseline creatinine is 0.6. Creatinine on admission is pending. She appears rather dry onexam. Fluids will be ordered based on lab review. #6 Osteoporosis She has known osteoporosis based on her bone mineral density scan and history of compression fractures. She has been evaluated by endocrinology for this and is taking vitamin-D and is on teriparatide. Since teriparatide is not on formulary we will hold while patient is inpatient. #7 Compression fractures #8 Pain control Patient has known chronic compression fractures of the T6-L5 vertebral bodies with height loss. Shehas undergone medial branch blocks and radiofrequency ablation in July 2023. She also has been on hydromorphone therapy for pain control in the past. However she was transitioned to Suboxone by her outpatient physician and was pending evaluation by spine surgery locally. We will hold her suboxone since she has not been taking it recently. We will offer acetaminophen and lidocaine patches for pain control. #9 Diabetes She has posttransplant diabetes with risk factor being chronic pancreatitis. She was requiring NPH insulin twice daily posttransplant but is currently off of insulin. Her last documented hemoglobin A1c was 6.6%. We will evaluate for need of sliding scale insulin based on her fasting glucose on her metabolic panel. VTE Prophylaxis: Heparin SQ 5,000 units TID GI Prophylaxis: not indicated Anticipated Disposition: home when improved medically Discussed with attending block cutter, Dr. Jaida Purdy MD PGY-7 Transplant Hepatology Fellow Cosigned by Sree Sena M.D. at 12/17/2023 5:31 PM CDT documented in this encounter Nursing Notes * Yue Sam R.N. - 12/20/2023 6:10 PM CDT Patient discharged safely to home/self care. AVS and medication list reviewed with patient. All questions and concerns addressed. Vital signs stable. No nursing barriers to discharge identified at this time. documented in this encounter Miscellaneous Notes * Documentation Clarification - Kenny Purdy M.D. - 12/20/2023 7:21 PM CDT PROVIDER RESPONSE TEXT: To clarify, the appropriate diagnosis supported by the clinical indicators: Pancytopenia likely secondary to COVID infection QUERY TEXT: Clarification DOCUMENTATION CLARIFICATION REQUEST Please clarify/specify the appropriate diagnosis supported in the clinical indicators below. Clinical Indicators/Risk Factors/Treatment: LABS: (Results Review, [facility]) Hemoglobin: 10.6(12/16) 9.5(12/17) 9.8(12/18) 9.7(12/19) Platelets: 116(12/16) 111(12/17) 120(12/18) 127(12/19) WBCS: 0.8(12/16) 1.0(12/17) 0.8(12/18) 1.0(12/19) Neutrophils: 0.18 (12/17) 0.19(12/18) 0.28(12/19) (12/16 H&P) #4 Neutropenia: [facility] Neutrophils have decreased from 1000 to 200. This is most likely in thesetting of COVID infection that was recently diagnosed. Emergency department x-ray was normal from December 13. (your note) (12/17 PHR) Mycophenolate on hold with COVID and neutropenia ([place]) (12/17 TXP Liver) We will consider Neupogen if neutropenia does not improve (your note) (12/19 TXP Liver) Her CellCept was held for neutropenia and will continue to hold. ([place]) Risk Factors: (12/19 DCS) Ms. 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 (your note) Treatment: (12/19 TXP Liver) We have stopped patient's CellCept considering neutropenia. (your note) Hemoglobin, Platelets, WBCs and Neutrophils monitored during inpatient admission. Options provided: -- Pancytopenia likely secondary to COVID infection -- Pancytopenia likely secondary to Cell Cept -- Pancytopenia likely secondary to, Please specify likely cause, causes -- Other - I will add my own diagnosis -- Disagree - Clinically unable to determine / Unknown -- Refer to Clinical Documentation Reviewer Query created by: Rafaela Lopez on 12/30/2023 2:28 PM Electronically signed by: Kenny Purdy M.D. 12/30/2023 3:34 PM * Documentation Clarification - Kenny Purdy M.D. - 12/20/2023 7:21 PM CDT PROVIDER RESPONSE TEXT: To clarify, the appropriate diagnosis supported by the clinical indicators: Hypomagnesemia QUERY TEXT: Clarification DOCUMENTATION CLARIFICATION REQUEST Please clarify/specify the appropriate diagnosis supported in the clinical indicators below. Clinical Indicators/Risk Factors/Treatment: LABS (Results Review, [facility]) Magnesium: 1.5(12/18) Risk Factors: (12/19 DCS) Ms. 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 ([place]- your note) Treatment: Magnesium value monitored one time during inpatient admission Btfpizcxjpos-ijme-GX-Ca-minerals 400 mcg (folic acid) tablet 1 tablet daily- Given 12/17, 12/18, 12/19. (MAR, [facility]) Options provided: -- Hypomagnesemia -- Other - I will add my own diagnosis -- Disagree - Clinically unable to determine / Unknown -- Refer to Clinical Documentation Reviewer Query created by: Rafaela Lopez on 12/30/2023 2:46 PM Electronically signed by: Kenny Purdy M.D. 12/30/2023 3:34 PM * Hospital Course - Kenny Purdy M.D. - 12/17/2023 4:30 PM CDT Ms. 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 She remained without hypoxia and her chest x-ray was normal on admission. We administered 4 days of remdesivir. We also initiated her on cefepime for neutropenic fever, but stopped after patient was found to have CMV viremia. We initiated patient on IV ganciclovir the patient received for 2 days before we switched to oral valganciclovir. We are arranging for an appointment with liver transplant Clinic for follow-up. We are also arranging for blood work in 1 week for patient to evaluate CMV PCR on therapy. Patient received overall 2 L of intravenous fluids and albumin for hypotension. Of note she has lowblood pressures even an outpatient visits. She does not have orthostatic symptoms. Other infectiousworkup including blood cultures and urine cultures were negative. Regarding her pain, patient did not find her outpatient dose of Suboxone effective. We tried non pharmacologic strategies including heating pads but to no improvement. We trialed home dose of gabapentin, lidocaine patches, and acetaminophen. After discussion of risks and benefits we offered hydromorphone to mg twice daily as needed with the understanding that patient will need to have follow-up with her outpatient physicians regarding pain management. She still pending appointment to see her spine doctors locally. On day of discharge we discussed pain plan with patient and her primary care provider. Per patient's primary care patient has a referral for a consult with the external pain clinic, room to increase the Suboxone, and physical therapy. Patient does not have a plan for opiate dosing from primary care. Therefore we will not prescribe hydromorphone on discharge. Patient will follow-up with her primary care provider. documented in this encounter Plan of Treatment Upcoming Encounters Date Type Department Care Team (Late st Contact Info) Description 02/23/2024 8:20 AM CDT Appointment Department of Laboratory Medicine in [address] [phone] Noreen Ansari P.A.-C., M.S. [address] [place] [phone] 04/06/2024 2:30 PM INBOUND CALL CENTER AGENT Clinical Communication Virtual Review in [place], [place] [address] [place] [phone] 04/07/2024 3:00 PM INBOUND CALL CENTER AGENT Comprehensive Visit Department of Spine in [address] [phone] Faviola Jiang, YARITZA, C.N.P., M.S.N. [address] [place] [phone] documented as of this encounter Procedures Procedure Name Priority Date/Time Associated Diagnosis Comments TACROLIMUS LEVEL, B Routine 12/20/2023 7 :27 AM CDT PROTHROMBIN TIME (PT), P Routine 12/20/2023 7:27 AM CDT CBC WITH DIFFERENTIAL, B Routine 12/20/2023 7:27 AM CDT COMPREHENSIVE METABOLIC PANEL, S/P Routine 12/20/2023 7:27 AM CDT TACROLIMUS LEVEL, B Routine 12/19/2023 6 :42 AM CDT PROTHROMBIN TIME (PT), P Routine 12/19/2023 6:42 AM CDT CBC WITH DIFFERENTIAL, B Routine 12/19/2023 6:42 AM CDT MAGNESIUM, S Routine 12/19/2023 6:42 AM CDT COMPREHENSIVE METABOLIC PANEL, S/P Routine 12/19/2023 6:42 AM CDT CMV DNA DETECT/QUANT, P Routine 12/18/2023 10:59 AM CDT IRON AND TOT IRON-BINDING CAPACITY, S/P Routine 12/18/2023 10:59 AM CDT FERRITIN, S Routine 12/18/2023 10:59 AM CDT TACROLIMUS LEVEL, B Routine 12/18/2023 6 :08 AM CDT PROTHROMBIN TIME (PT), P Routine 12/18/2023 6:08 AM CDT CBC WITH DIFFERENTIAL, B Routine 12/18/2023 6:08 AM CDT COMPREHENSIVE METABOLIC PANEL, S/P Routine 12/18/2023 6:08 AM CDT IRON AND TOT IRON-BINDING CAPACITY, S/P Routine 12/18/2023 5:58 AM CDT FERRITIN, S Routine 12/18/2023 5:58 AM CDT HC OSMOLALITY ASSAY URINE Routine 12/17/2023 7:46 PM CDT DIPSTICK, U Routine 12/17/2023 7:46 PM CDT PH, RANDOM, U Routine 12/17/2023 7:46 PM CDT MICROSCOPIC MANUAL Routine 12/17/2023 7: 46 PM CDT BACTERIAL CULTURE, AEROBIC + SUSC, URINE Routine 12/17/2023 7:46 PM CDT URINALYSIS WITH MICROSCOPIC Routine 12/17/2023 7:46 PM CDT ECG Routine 12/17/2023 6:26 PM CDT BACTERIA / INES CULTURE, BLOOD STAT 12/17/2023 6:11 PM CDT LACTATE FOR SEPSIS WITH REFLEX STAT 12/17/2023 6:06 PM CDT BACTERIA / INES CULTURE, BLOOD STAT 12/17/2023 6:06 PM CDT PROTHROMBIN TIME (PT), P STAT 12/17/2023 6:06 PM CDT CBC WITHOUT DIFFERENTIAL, B STAT 12/17/2023 6:06 PM CDT BILIRUBIN DIRECT, S/P STAT 12/17/2023 6:06 PM CDT COMPREHENSIVE METABOLIC PANEL, S/P STAT 12/17/2023 6:06 PM CDT DX CHEST AP OR PA AND LATERAL 2 VIEWS RAD - Routine (most inpatients and all outpatients) 12/17/2023 5:30 PM CDT documented in this encounter Results * Tacrolimus, Trough (12/20/2023 7:27 AM CDT) Pathologist [facility] Tacrolimus, Trough 6.9 5.0-15.0 (Trough) ng/mL 12/20/2023 1:37 PM CDT [facility] Comment: ----ADDITIONAL INFORMATION---- Target steady-state trough concentrations vary depending on the type of transplant, concomitant immunosuppression, clinical/institutional protocols, and time post-transplant. Results should be interpreted in conjunction with this clinical information and any physical signs/symptoms of rejection/toxicity. Testing performed by Liquid Chromatography-Tandem Mass Spectrometry (LC-MS/MS). This test was developed and its performance characteristics determined by [facility] in a manner consistent with CLIA requirements. This test has not been cleared or approved by the U.S. Food and Drug Administration. Blood (Blood, Venous) 12/20/2023 7:27 AM CDT 12/20/2023 10:41 AM CDT Kenny Purdy M.D. LAB BLOOD NON AD D-ON Final Result [facility] [address] [place] [address] [facility] [address] [place] [address] [place] [address] * (ABNORMAL) CBC with Differential, Blood (12/20/2023 7:27 AM CDT) Pathologist [facility] Hemoglobin 9.7(L) 11.6 - 15.0 g/dL 12/20/2023 8:22 AM CDT DTL Hematocrit 30.0(L) 35.5 - 44.9 % 12/20/2023 8:22 AM CDT DTL Erythrocytes 3.65(L) 3.92 - 5.13 x10(12)/L 12/20/2023 8:22 AM CDT DTL MCV 82.2 78.2 - 97.9 fL 12/20/2023 8:22 AM CDT DTL RBC Distrib Width 12.1(L) 12.2 - 16.1 % 12/20/2023 8:22 AM CDT DTL Platelet Count 127(L) 157 - 371 x10(9)/L 12/20/2023 9:04 AM CDT DTL Leukocytes 1.0(L) 3.4 - 9.6 x10(9)/L 12/20/2023 9:04 AM CDT DTL Neutrophils 0.28(CL) 1.56 - 6.45 x10(9)/L 12/20/2023 9:04 AM CDT DH[facility] Lymphocytes 0.51(L) 0.95 - 3.07 x10(9)/L 12/20/2023 9:04 AM CDT DTL Monocytes 0.16(L) 0.26 - 0.81 x10(9)/L 12/20/2023 9:04 AM CDT DTL Eosinophils 0.03 0.03 - 0.48 x10(9)/L 12/20/2023 9:04 AM CDT DTL Basophils <0.03 0.01 - 0.08 x10(9)/L 12/20/2023 9:04 AM CDT DTL Blood (Blood, Venous) 12/20/2023 7:27 AM CDT 12/20/2023 7:55 AM CDT Kenny Purdy M.D. LAB BLOOD ADD-ON Final Result [facility] [address] [place] [address], [facility] DTL [facility] [address] [place], [place] [address] [place] [address] [address] [place] [address] * (ABNORMAL) Prothrombin Time (PT) (12/20/2023 7:27 AM CDT) Prothrombin Time, P 15.1(H) 9.4 - 12.5 sec 12/20/2023 8:26 AM CDT DTL INR 1.4 0.9 - 1.1 12/20/2023 8:26 AM CDT DTL Comment: ----ADDITIONAL INFORMATION---- Standard intensity warfarin therapeutic range: 2.0 to 3.0 ?? High intensity warfarin therapeutic range: 2.5 to 3.5 Blood (Blood, Venous) 12/20/2023 7:27 AM CDT 12/20/2023 7:52 AM CDT Kenny Purdy M.D. LAB BLOOD ADD-ON Final Result [facility] [address] [place] [address], [facility] [address] [place] [address] * (ABNORMAL) Comprehensive Metabolic Panel (12/20/2023 7:27 AM CDT) Potassium, S 3.9 3.6 - 5.2 mmol/L 12/20/2023 8:20 AM CDT DTL Sodium, S 142 135 - 145 mmol/L 12/20/2023 8:20 AM CDT DTL Chloride, S 109(H) 98 - 107 mmol/L 12/20/2023 8:20 AM CDT DTL Bicarbonate, S 25 22 - 29 mmol/L 12/20/2023 8:20 AM CDT DTL Anion Gap 8 7 - 15 12/20/2023 8:20 AM CDT DTL BUN (Blood Urea Nitrogen), S 4(L) 6 - 21 mg/dL 12/20/2023 8:20 AM CDT DTL Creatinine 0.73 0.59 - 1.04 mg/dL 12/20/2023 8:20 AM CDT DTL Estimated GFR (eGFR) >90 >=60 mL/min/BS A 12/20/2023 8:20 AM CDT DTL Comment: Estimated GFR calculated using the 2020 CKD_EPI creatinine equation. Calcium, Total, S 8.5(L) 8.6 - 10.0 mg/dL 12/20/2023 8:20 AM CDT DTL Glucose, S 139 70 - 140 mg/dL 12/20/2023 8:20 AM CDT DTL Protein, Total, S 4.6(L) 6.3 - 7.9 g/dL 12/20/2023 8:20 AM CDT DTL Albumin, S 3.2(L) 3.5 - 5.0 g/dL 12/20/2023 8:20 AM CDT DTL Aspartate Aminotransferase (AST), S 18 8 - 43 U/L 12/20/2023 8:20 AM CDT DTL Alkaline Phosphatase, S 115(H) 35 - 104 U/L 12/20/2023 8:20 AM CDT DTL Alanine Aminotransferase (ALT), S 14 7 - 45 U/L 12/20/2023 8:20 AM CDT DTL Bilirubin, Total, S 0.5 0.0 - 1.2 mg/dL 12/20/2023 8:20 AM CDT DTL Blood (Blood, Venous) 12/20/2023 7:27 AM CDT 12/20/2023 8:02 AM CDT Kenny Purdy M.D. LAB BLOOD ADD-ON Final Result [facility] [address] [place] [address], [facility] [address] [place] [address] * Tacrolimus, Trough (12/19/2023 6:42 AM CDT) Tacrolimus, Trough 7.5 5.0-15.0 (Trough) ng/mL 12/19/2023 11:54 AM CDT [facility] Comment: ----ADDITIONAL INFORMATION---- Target steady-state trough concentrations vary depending on the type of transplant, concomitant immunosuppression, clinical/institutional protocols, and time post-transplant. Results should be interpreted in conjunction with this clinical information and any physical signs/symptoms of rejection/toxicity. Testing performed by Liquid Chromatography-Tandem Mass Spectrometry (LC-MS/MS). This test was developed and its performance characteristics determined by [facility] in a manner consistent with CLIA requirements. This test has not been cleared or approved by the U.S. Food and Drug Administration. Blood (Blood, Venous) 12/19/2023 6:42 AM CDT 12/19/2023 9:29 AM CDT Kenny Purdy M.D. LAB BLOOD NON AD D-ON Final Result [facility] [address] [place] [address] [facility] [address] [place] [address] [place] [address] * (ABNORMAL) CBC with Differential, Blood (12/19/2023 6:42 AM CDT) Hemoglobin 9.8(L) 11.6 - 15.0 g/dL 12/19/2023 6:58 AM CDT DTL Hematocrit 29.9(L) 35.5 - 44.9 % 12/19/2023 6:58 AM CDT DTL Erythrocytes 3.63(L) 3.92 - 5.13 x10(12)/L 12/19/2023 6:58 AM CDT DTL MCV 82.4 78.2 - 97.9 fL 12/19/2023 6:58 AM CDT DTL RBC Distrib Width 12.5 12.2 - 16.1 % 12/19/2023 6:58 AM CDT DTL Platelet Count 120(L) 157 - 371 x10(9)/L 12/19/2023 7:33 AM CDT DTL Leukocytes 0.8(L) 3.4 - 9.6 x10(9)/L 12/19/2023 7:59 AM CDT DTL Neutrophils 0.19(CL) 1.56 - 6.45 x10(9)/L 12/19/2023 7:59 AM CDT DHPM Lymphocytes 0.37(L) 0.95 - 3.07 x10(9)/L 12/19/2023 7:59 AM CDT DTL Monocytes 0.16(L) 0.26 - 0.81 x10(9)/L 12/19/2023 7:59 AM CDT DTL Eosinophils <0.03 0.03 - 0.48 x10(9)/L 12/19/2023 7:59 AM CDT DTL Basophils <0.03 0.01 - 0.08 x10(9)/L 12/19/2023 7:59 AM CDT DTL Blood (Blood, Venous) 12/19/2023 6:42 AM CDT 12/19/2023 6:53 AM CDT Kenny Purdy M.D. LAB BLOOD ADD-ON Final Result Performing Organization Address City/[facility]/ZIP Co de Phone Number [facility] [address] [place], [place] [phone] [place] [address] DTL [facility] [address] [place], [place] [phone] [place] [address] [address] [place] [address] * (ABNORMAL) Prothrombin Time (PT) (12/19/2023 6:42 AM CDT) Prothrombin Time, P 13.9(H) 9.4 - 12.5 sec 12/19/2023 7:09 AM CDT DTL INR 1.3 0.9 - 1.1 12/19/2023 7:09 AM CDT DTL Comment: ----ADDITIONAL INFORMATION---- Standard intensity warfarin therapeutic range: 2.0 to 3.0 ?? High intensity warfarin therapeutic range: 2.5 to 3.5 Blood (Blood, Venous) 12/19/2023 6:42 AM CDT 12/19/2023 6:53 AM CDT Kenny Purdy M.D. LAB BLOOD ADD-ON Final Result Performing Organization Address City/[facility]/ZIP Co de Phone Number [facility] [address] [place], [place] [address] [address] [place] [address] * (ABNORMAL) Magnesium (12/19/2023 6:42 AM CDT) Magnesium, S 1.5(L) 1.7 - 2.3 mg/dL 12/19/2023 7:26 AM CDT DTL Blood (Blood, Venous) 12/19/2023 6:42 AM CDT 12/19/2023 7:06 AM CDT Kenny uPrdy M.D. LAB BLOOD ADD-ON Final Result [facility] [address] [place] [address], [facility] DTL [facility] [address] [place] [address] * (ABNORMAL) Comprehensive Metabolic Panel (12/19/2023 6:42 AM CDT) Potassium, S 4.9 3.6 - 5.2 mmol/L 12/19/2023 7:26 AM CDT DTL Sodium, S 144 135 - 145 mmol/L 12/19/2023 7:26 AM CDT DTL Chloride, S 112(H) 98 - 107 mmol/L 12/19/2023 7:26 AM CDT DTL Bicarbonate, S 26 22 - 29 mmol/L 12/19/2023 7:26 AM CDT DTL Anion Gap 6(L) 7 - 15 12/19/2023 7:26 AM CDT DTL BUN (Blood Urea Nitrogen), S 4(L) 6 - 21 mg/dL 12/19/2023 7:26 AM CDT DTL Creatinine 0.82 0.59 - 1.04 mg/dL 12/19/2023 7:26 AM CDT DTL Estimated GFR (eGFR) >90 >=60 mL/min/BS A 12/19/2023 7:26 AM CDT DTL Comment: Estimated GFR calculated using the 2020 CKD_EPI creatinine equation. Calcium, Total, S 8.5(L) 8.6 - 10.0 mg/dL 12/19/2023 7:26 AM CDT DTL Glucose, S 184(H) 70 - 140 mg/dL 12/19/2023 7:26 AM CDT DTL Protein, Total, S 4.7(L) 6.3 - 7.9 g/dL 12/19/2023 7:26 AM CDT DTL Albumin, S 3.3(L) 3.5 - 5.0 g/dL 12/19/2023 7:26 AM CDT DTL Aspartate Aminotransferase (AST), S 16 8 - 43 U/L 12/19/2023 7:26 AM CDT DTL Alkaline Phosphatase, S 115(H) 35 - 104 U/L 12/19/2023 7:26 AM CDT DTL Alanine Aminotransferase (ALT), S 13 7 - 45 U/L 12/19/2023 7:26 AM CDT DTL Bilirubin, Total, S 0.5 0.0 - 1.2 mg/dL 12/19/2023 7:26 AM CDT DTL Blood (Blood, Venous) 12/19/2023 6:42 AM CDT 12/19/2023 7:06 AM CDT Kenny Purdy M.D. LAB BLOOD ADD-ON Final Result Performing Organization Address City/[facility]/ZIP Co de Phone Number [facility] [address] [place] [address] * (ABNORMAL) Ferritin (12/18/2023 10:59 AM CDT) Pathologist [facility] Ferritin, S 483(H) 6 - 175 mcg/L 12/18/2023 1:00 PM CDT DTL Blood (Blood, Venous) 12/18/2023 10:59 AM CDT 12/18/2023 11:24 AM CDT Kenny Purdy M.D. LAB BLOOD ADD-ON Final Result Performing Organization Address City/[facility]/ZIP Co de Phone Number [facility] [address] [place] [address] * (ABNORMAL) Iron and Total Iron-Binding Capacity (12/18/2023 10:59 AM CDT) [facility] Iron 73 35 - 145 mcg/dL 12/18/2023 1:00 PM CDT DTL Total Iron Binding Capacity 127(L) 250 - 400 mcg/dL 12/18/2023 1:00 PM CDT DTL Percent Saturation 57(H) 14 - 50 % 12/18/2023 1:00 PM CDT DTL Blood (Blood, Venous) 12/18/2023 10:59 AM CDT 12/18/2023 11:24 AM CDT Kenny Purdy M.D. LAB BLOOD ADD-ON Final Result Performing Organization Address City/[facility]/ZIP Co de Phone Number [facility] [address] [place] [address], [facility] [address] [place] [address] * (ABNORMAL) CMV DNA Detect / Quant, Plasma (12/18/2023 10:59 AM CDT) Pathologist [facility] CMV DNA Detect/Quant, P 521(A) Undetected IU/mL 12/18/2023 7:02 PM CDT [facility] Comment: Result in log IU/mL is 2.72. ----ADDITIONAL INFORMATION---- The quantification range of this assay is 35 to 10,000,000 IU/mL (1.54 log to 7.00 log IU/mL). Testing was performed using the john CMV test ([employer] Blood (Blood, Venous) 12/18/2023 10:59 AM CDT 12/18/2023 2:23 PM CDT Kenny Purdy M.D. LAB MICROBIOLOGY - BLOOD ORDERABLES Final Result Performing Organization Address [facility]/ZIP Co de Phone Number [facility] [address] [place] [address] [facility] [address] [place] [address] [place] [address] * Tacrolimus, Trough (12/18/2023 6:08 AM CDT) Pathologist [facility] Tacrolimus, Trough 7.8 5.0-15.0 (Trough) ng/mL 12/18/2023 1:04 PM CDT [facility] Comment: ----ADDITIONAL INFORMATION---- Target steady-state trough concentrations vary depending on the type of transplant, concomitant immunosuppression, clinical/institutional protocols, and time post-transplant. Results should be interpreted in conjunction with this clinical information and any physical signs/symptoms of rejection/toxicity. Testing performed by Liquid Chromatography-Tandem Mass Spectrometry (LC-MS/MS). This test was developed and its performance characteristics determined by [facility] in a manner consistent with CLIA requirements. This test has not been cleared or approved by the U.S. Food and Drug Administration. Blood (Blood, Venous) 12/18/2023 6:08 AM CDT 12/18/2023 8:30 AM CDT Kenny Purdy M.D. LAB BLOOD NON AD D-ON Final Result [facility] [address] [place] [address] [facility] [address] [place] [address] [place] [address] * (ABNORMAL) CBC with Differential, Blood (12/18/2023 6:08 AM CDT) Hemoglobin 9.5(L) 11.6 - 15.0 g/dL 12/18/2023 6:37 AM CDT DTL Hematocrit 28.3(L) 35.5 - 44.9 % 12/18/2023 6:37 AM CDT DTL Erythrocytes 3.48(L) 3.92 - 5.13 x10(12)/L 12/18/2023 6:37 AM CDT DTL MCV 81.3 78.2 - 97.9 fL 12/18/2023 6:37 AM CDT DTL RBC Distrib Width 12.5 12.2 - 16.1 % 12/18/2023 6:37 AM CDT DTL Platelet Count 111(L) 157 - 371 x10(9)/L 12/18/2023 7:09 AM CDT DTL Leukocytes 1.0(L) 3.4 - 9.6 x10(9)/L 12/18/2023 8:13 AM CDT DTL Neutrophils 0.18(CL) 1.56 - 6.45 x10(9)/L 12/18/2023 8:13 AM CDT DH[facility] Lymphocytes 0.55(L) 0.95 - 3.07 x10(9)/L 12/18/2023 8:13 AM CDT DTL Monocytes 0.18(L) 0.26 - 0.81 x10(9)/L 12/18/2023 8:13 AM CDT DTL Eosinophils 0.04 0.03 - 0.48 x10(9)/L 12/18/2023 8:13 AM CDT DTL Basophils <0.03 0.01 - 0.08 x10(9)/L 12/18/2023 8:13 AM CDT DTL Blood (Blood, Venous) 12/18/2023 6:08 AM CDT 12/18/2023 6:31 AM CDT Kenny Purdy M.D. LAB BLOOD ADD[place] [address], [facility] DTL [facility] [address] [place] [address] * Prothrombin Time (PT) (12/18/2023 6:08 AM CDT) [facility] Prothrombin Time, P 12.4 9.4 - 12.5 sec 12/18/2023 7:01 AM CDT DTL INR 1.1 0.9 - 1.1 12/18/2023 7:01 AM CDT DTL Comment: ----ADDITIONAL INFORMATION---- Standard intensity warfarin therapeutic range: 2.0 to 3.0 ?? High intensity warfarin therapeutic range: 2.5 to 3.5 Blood (Blood, Venous) 12/18/2023 6:08 AM CDT 12/18/2023 6:30 AM CDT Kenny Purdy M.D. LAB BLOOD ADD-ON Final Result [facility] [address] [place] [address], [facility] DTL [facility] [address] [place] [address] * (ABNORMAL) Comprehensive Metabolic Panel (12/18/2023 6:08 AM CDT) [facility] Potassium, S 4.2 3.6 - 5.2 mmol/L 12/18/2023 6:55 AM CDT DTL Sodium, S 138 135 - 145 mmol/L 12/18/2023 6:55 AM CDT DTL Chloride, S 105 98 - 107 mmol/L 12/18/2023 6:55 AM CDT DTL Bicarbonate, S 26 22 - 29 mmol/L 12/18/2023 6:55 AM CDT DTL Anion Gap 7 7 - 15 12/18/2023 6:55 AM CDT DTL BUN (Blood Urea Nitrogen), S 4(L) 6 - 21 mg/dL 12/18/2023 6:55 AM CDT DTL Creatinine 0.85 0.59 - 1.04 mg/dL 12/18/2023 6:55 AM CDT DTL Estimated GFR (eGFR) >90 >=60 mL/min/BS A 12/18/2023 6:55 AM CDT DTL Comment: Estimated GFR calculated using the 2020 CKD_EPI creatinine equation. Calcium, Total, S 8.2(L) 8.6 - 10.0 mg/dL 12/18/2023 6:55 AM CDT DTL Glucose, S 145(H) 70 - 140 mg/dL 12/18/2023 6:55 AM CDT DTL Protein, Total, S 4.5(L) 6.3 - 7.9 g/dL 12/18/2023 6:55 AM CDT DTL Albumin, S 3.0(L) 3.5 - 5.0 g/dL 12/18/2023 6:55 AM CDT DTL Aspartate Aminotransferase (AST), S 16 8 - 43 U/L 12/18/2023 6:55 AM CDT DTL Alkaline Phosphatase, S 125(H) 35 - 104 U/L 12/18/2023 6:55 AM CDT DTL Alanine Aminotransferase (ALT), S 20 7 - 45 U/L 12/18/2023 6:55 AM CDT DTL Bilirubin, Total, S 0.6 0.0 - 1.2 mg/dL 12/18/2023 6:55 AM CDT DTL Blood (Blood, Venous) 12/18/2023 6:08 AM CDT 12/18/2023 6:40 AM CDT Kenny Purdy M.D. LAB BLOOD ADD-ON Final Result Performing Organization Address City/[facility]/ZIP Co de Phone Number [facility] [address] [place] [address], [facility] [address] [place] [address] * (ABNORMAL) Iron and Total Iron-Binding Capacity (12/18/2023 5:58 AM CDT) Iron 70 35 - 145 mcg/dL 12/18/2023 11:07 AM CDT DTL Total Iron Binding Capacity 132(L) 250 - 400 mcg/dL 12/18/2023 11:07 AM CDT DTL Percent Saturation 53(H) 14 - 50 % 12/18/2023 11:07 AM CDT DTL Blood 12/18/2023 5:58 AM CDT 12/18/2023 10:33 AM CDT Kenny Purdy M.D. LAB BLOOD ADD-ON Final Result [facility] [address] [place] [address], [facility] [address] [place] [address] * (ABNORMAL) Ferritin (12/18/2023 5:58 AM CDT) Ferritin, S 497(H) 6 - 175 mcg/L 12/18/2023 11:07 AM CDT DTL Blood (Blood, Venous) 12/18/2023 5:58 AM CDT 12/18/2023 10:33 AM CDT Kenny Purdy M.D. LAB BLOOD ADD-ON Final Result Performing Organization Address [facility] Co de Phone Number [facility] [address] [place] [address], [facility] [address] [place] [address] * Osmolality, Urine (12/17/2023 7:46 PM CDT) Pathologist [facility] Osmolality, U 472 150 - 1150 mOsm/kg 12/17/2023 8:29 PM CDT DTL Urine 12/17/2023 7:46 PM CDT 12/17/2023 7:46 PM CDT Kenny Purdy M.D. LAB URINE ORDERA BLES Final Result Performing Organization Address [facility] de Phone Number [facility] [address] [place] [address], [facility] [address] [place] [address] * (ABNORMAL) Dipstick, Urine (12/17/2023 7:46 PM CDT) Hemoglobin, QL, U Moderate(A) Negative 12/17/2023 8:09 [...] M.D. LAB URINE ORDERA BLES Final Result [facility] [address] [place] [address], [facility] [address] [place] [address] * (ABNORMAL) Microscopic Manual (12/17/2023 7:46 PM [...] URINE ORDERA BLES Edited Result - Final [facility] [address] [place] [address], [facility] DTL [facility] [address] [place] [address] * pH, Random, Urine (12/17/2023 7:46 PM CDT) pH, Random, U 5.8 4.5 - 8.0 12/17/2023 8:29 PM CDT DTL Urine 12/17/2023 7:46 PM CDT 12/17/2023 7:46 PM CDT Kenny Purdy M.D. LAB URINE ORDERA BLES Final Result Performing Organization Address City/[facility] Co de Phone Number [facility] [address] [place] [address], [facility] [address] [place] [address] * Bacterial Culture, Aerobic + Susceptibility, Urine (12/17/2023 7:46 PM CDT) Pathologist [facility] Urine Culture Urogenital microbiota, susceptibilities not performed per laboratory criteria. 12/19/2023 6:40 AM CDT DT Urine (Urine, Midstream) 12/17/2023 7:46 PM CDT 12/17/2023 9:10 PM CDT Comment:Specimen Source Site : Urine Kenny Purdy M.D. LAB MICROBIOLOGY - GENERAL ORDERABLES Final Result Performing Organization Address City/[facility] Co de Phone Number [facility] [address] [place] [address], [facility] [address] [place] [address] * (ABNORMAL) Urinalysis, with Microscopic: Urine, Midstream [...] M.D. LAB URINE ORDERA BLES Final Result [facility] [address] [place] [address], [place] DTL [facility] [address] [place] [address] * ECG 12 Lead (12/17/2023 6:26 PM CDT) Ventricular Rate ECG/Min 66 BPM MUSE IL Interval 202 ms MUSE QRSD Interval 74 ms MUSE QT Interval 400 ms MUSE QTC Interval 419 ms MUSE P [facility] -4 degrees MUSE R [facility] 16 degrees MUSE T Wave [facility] 27 degrees MUSE 12/17/2023 6:26 PM CDT 12/17/2023 6:38 PM CDT Impressions MUSE - 12/17/2023 6:38 PM CDT Normal sinus rhythm with 1st degree A-V block Low voltage QRS in the limb leads Nonspecific ST and T wave abnormality When compared with ECG of 29-Dec-2022 19:16, IL interval has increased Reviewed by STERLING Luke Narrative Procedure Note Primitivo Bernard M.D. - 12/17/2023 IMPRESSION: Normal sinus rhythm with 1st degree A-V block Low voltage QRS in the limb leads Nonspecific ST and T wave abnormality When compared with ECG of 29-Dec-2022 19:16, IL interval has increased Reviewed by STERLING Luke Kenny Purdy M.D. ECG ORDERABLES Edited Result - Final Performing Organization Address City/[facility]/ZIP Co de Phone Number MUSE NA * Bacteria / Ines Culture, Blood #1 (12/17/2023 6:11 PM CDT) Pathologist [facility] Bacteria/Adriana da Culture, Blood No growth after 5 days of incubation. 12/22/2023 7:02 PM CDT DTL Blood (Blood, Peripheral Draw) 12/17/2023 6:11 PM CDT 12/17/2023 6:37 PM CDT Comment:Specimen Source Site : Blood Narrative [facility] - 12/22/2023 7:02 PM CDT Received Bactec aerobic and Bactec anaerobic bottles Kenny Purdy M.D. LAB MICROBIOLOGY - GENERAL ORDERABLES Final Result Performing Organization Address [facility] Co de Phone Number [facility] [address] [facility] [address] [place] [address] * Lactate for Sepsis with Reflex (12/17/2023 6:06 PM CDT) [facility] Lactate, P 0.8 0.5 - 2.2 mmol/L 12/17/2023 7:14 PM CDT DTL Blood (Blood, Venous) 12/17/2023 6:06 PM CDT 12/17/2023 6:54 PM CDT Kenny Purdy M.D. LAB BLOOD NON AD D-ON Final Result Performing Organization Address City/[facility]/ZIP Co de Phone Number [facility] [address] [facility] [address] [place] [address] * Bacteria / Ines Culture, Blood #2 (12/17/2023 6:06 PM CDT) [facility] Bacteria/Adriana da Culture, Blood No growth after 5 days of incubation. 12/22/2023 7:02 PM CDT DT Blood (Blood, Peripheral Draw) 12/17/2023 6:06 PM CDT 12/17/2023 6:37 PM CDT Comment:Specimen Source Site : Blood Narrative [facility] - 12/22/2023 7:02 PM CDT Received Bactec aerobic and Bactec anaerobic bottles Kenny Purdy M.D. LAB MICROBIOLOGY - GENERAL ORDERABLES Final Result Performing Organization Address [facility] Co de Phone Number [facility] [address] [place] [address], [facility] [address] [place] [address] * (ABNORMAL) Prothrombin Time (PT) (12/17/2023 6:06 PM CDT) [facility] Prothrombin Time, P 12.7(H) 9.4 - 12.5 sec 12/17/2023 6:24 PM CDT [facility] INR 1.2 0.9 - 1.1 12/17/2023 6:24 PM CDT [facility] Comment: ----ADDITIONAL INFORMATION---- Standard intensity warfarin therapeutic range: 2.0 to 3.0 ?? High intensity warfarin therapeutic range: 2.5 to 3.5 Blood (Blood, Venous) 12/17/2023 6:06 PM CDT 12/17/2023 6:16 PM CDT Kenny Purdy M.D. LAB BLOOD ADD-ON Final Result [facility] [address] [place] [address], [place] METH [facility] [address] [place] [address] * Bilirubin, Direct (12/17/2023 6:06 PM CDT) [facility] Bilirubin, Direct, P 0.3 0.0 - 0.3 mg/dL 12/17/2023 7:14 PM CDT DTL Blood (Blood, Venous) 12/17/2023 6:06 PM CDT 12/17/2023 6:54 PM CDT Kenny Purdy M.D. LAB BLOOD ADD-ON Final Result [facility] [address] [place] [address], [facility] DTL [facility] [address] [place] [address] * (ABNORMAL) CBC without Differential (12/17/2023 6:06 PM CDT) Hemoglobin 10.6(L) 11.6 - 15.0 g/dL 12/17/2023 6:19 PM CDT [facility] Hematocrit 30.8(L) 35.5 - 44.9 % 12/17/2023 6:19 PM CDT [facility] Erythrocytes 3.85(L) 3.92 - 5.13 x10(12)/L 12/17/2023 6:19 PM CDT [facility] MCV 80.0 78.2 - 97.9 fL 12/17/2023 6:19 PM CDT [facility] RBC Distrib Width 12.4 12.2 - 16.1 % 12/17/2023 6:19 PM CDT [facility] Platelet Count 116(L) 157 - 371 x10(9)/L 12/17/2023 7:22 PM CDT [facility] Comment:Results confirmed by smear, no clumping or interference seen. Leukocytes 0.8(L) 3.4 - 9.6 x10(9)/L 12/17/2023 7:22 PM CDT [facility] Blood (Blood, Venous) 12/17/2023 6:06 PM CDT 12/17/2023 6:16 PM CDT Kenny Purdy M.D. LAB BLOOD ADD-ON Final Result [facility] [address] [place] [address], [place] METH [facility] [address] [place] [address] [facility] [address] [place] [address] * (ABNORMAL) Comprehensive Metabolic Panel (12/17/2023 6:06 PM CDT) [facility] Potassium, S 4.1 3.6 - 5.2 mmol/L 12/17/2023 7:14 PM CDT DTL Sodium, S 136 135 - 145 mmol/L 12/17/2023 7:14 PM CDT DTL Chloride, S 102 98 - 107 mmol/L 12/17/2023 7:14 PM CDT DTL Bicarbonate, S 23 22 - 29 mmol/L 12/17/2023 7:14 PM CDT DTL Anion Gap 11 7 - 15 12/17/2023 7:14 PM CDT DTL BUN (Blood Urea Nitrogen), S 2(L) 6 - 21 mg/dL 12/17/2023 7:14 PM CDT DTL Creatinine 0.71 0.59 - 1.04 mg/dL 12/17/2023 7:14 PM CDT DTL Estimated GFR (eGFR) >90 >=60 mL/min/BS A 12/17/2023 7:14 PM CDT DTL Comment: Estimated GFR calculated using the 2020 CKD_EPI creatinine equation. Calcium, Total, S 8.6 8.6 - 10.0 mg/dL 12/17/2023 7:14 PM CDT DTL Glucose, S 110 70 - 140 mg/dL 12/17/2023 7:14 PM CDT DTL Protein, Total, S 5.3(L) 6.3 - 7.9 g/dL 12/17/2023 7:14 PM CDT DTL Albumin, S 3.6 3.5 - 5.0 g/dL 12/17/2023 7:14 PM CDT DTL Aspartate Aminotransferase (AST), S 20 8 - 43 U/L 12/17/2023 7:14 PM CDT DTL Alkaline Phosphatase, S 155(H) 35 - 104 U/L 12/17/2023 7:14 PM CDT DTL Alanine Aminotransferase (ALT), S 22 7 - 45 U/L 12/17/2023 7:14 PM CDT DTL Bilirubin, Total, S 1.1 0.0 - 1.2 mg/dL 12/17/2023 7:14 PM CDT DTL Blood (Blood, Venous) 12/17/2023 6:06 PM CDT 12/17/2023 6:54 PM CDT Kenny Purdy M.D. LAB BLOOD ADD-ON Final Result [facility] [address] [place] [address], [place] DTL [facility] [address] [place] [address] * DX Chest AP or PA and [...] IMG DIAGNOSTIC I MAGING PROCEDURES Final Result documented in this encounter Visit Diagnoses Diagnosis COVID-19 Infection- Primary documented in this encounter Administered Medications Inactive Administered Medications - up to 3 most recent administrations Medication Order MAR Action Action Date Dose Rate Site acetaminophen tablet 500 mg (TylenoL) 500 mg, oral, Every 6 hours PRN, mild pain or score 1-3 of 10, fever, Starting on Wed12/17/23 at 1620, First line option. Not to exceed 2 grams in a 24 hour period. Given 12/18/2023 5:58 AM CDT 500 mg albumin human 25 % injection 25 g 25 g, intravenous, Once, On 12/18/23 at 1415, For 1 dose, If no infusion rate specified: Administer the 25% solution at 100 mL/hr New Bag 12/18/2023 2:10 PM CDT 25 g aspirin chewable tablet 81 mg 81 mg, oral, Daily, First dose on 12/18/23 at 0900 Given 12/20/2023 8:29 AM CDT 81 mg Given 12/19/2023 8:39 AM CDT 81 mg Given 12/18/2023 7:55 AM CDT 81 mg buprenorphine-naloxone 8-2 mg per SL Film 8 mg of buprenorphine (Suboxone) 8 mg of buprenorphine (1 Film), sublingual, Once, On 12/18/23 at 0030, For 1 dose, Select indication: Pain Given 12/18/2023 12:15 AM CDT 8 mg of buprenorphine cefepime in dextrose (iso osm) IVPB 2 g (Maxipime) 2 g, intravenous, at 200 mL/hr, Administer over 30 Minutes, Every 12 hours, First dose on Wed12/17/23 at 1730, Drug Monitoring Program: Pharmacist to adjust medication dosing based on indication and drug clearance factors., Indications: neutropenic feverIndications:neutropeni c fever New Bag 12/19/2023 5:46 AM CDT 2 g 200 mL/hr New Bag 12/18/2023 6:04 PM CDT 2 g 200 mL/hr New Bag 12/18/2023 5:16 AM CDT 2 g 200 mL/hr ergocalciferol capsule 50,000 Units (DrisdoL) 50,000 Units, oral, Weekly, First dose on 12/25/23 at 0900, For 1 dose, Swallow whole. Do NOT crush, chew or open capsule. gabapentin capsule 100 mg (Neurontin) 100 mg, oral, Daily, First dose on 12/20/23 at 0900 Given 12/20/2023 8:29 AM CDT 100 mg gabapentin capsule 100 mg (Neurontin) 100 mg, oral, Every 24 hours, First dose on Wed12/19/23 at 1500 Given 12/20/2023 2:49 PM CDT 100 mg Given 12/19/2023 2:34 PM CDT 100 mg gabapentin capsule 200 mg (Neurontin) 200 mg, oral, Daily at bedtime, First dose on Wed12/19/23 at 2100 Given 12/19/2023 9:07 PM CDT 200 mg gabapentin capsule 300 mg (Neurontin) 300 mg, oral, 3 times daily, First dose on Wed12/17/23 at 2100 Given 12/18/2023 2:58 PM CDT 300 mg Given 12/18/2023 5:58 AM CDT 300 mg Given 12/17/2023 10:22 PM CDT 300 mg ganciclovir 225 mg in NaCl 0.9% IVPB (Cytovene) 225 mg (rounded from 228 mg = 5 mg/kg ? 45.6 kg Dosing weight), intravenous, at 105 mL/hr, Administer over 60 Minutes, Every 12 hours, First dose on Wed12/19/23 at 1030, Drug Monitoring Program: Pharmacist to adjust medication dosing based on indication and drug clearance factors., Indications: CMVIndications:CMV New Bag 12/20/2023 10:31 AM CDT 225 mg 105 mL/hr New Bag 12/19/2023 10:16 PM CDT 225 mg 105 mL/hr New Bag 12/19/2023 11:58 AM CDT 225 mg 105 mL/hr heparin (porcine) injection 5,000 Units 5,000 Units, subcutaneous, Every 12 hours, First dose (after last modification) on Wed12/17/23 at 1730, Weight < 50 kg Given 12/20/2023 6:16 AM CDT 5,000 Units Left Lower Abdomen Given 12/19/2023 4:43 PM CDT 5,000 Units L eft Upper Arm (Back) Given 12/19/2023 5:46 AM CDT 5,000 Units L eft Upper Arm (Back) HYDROmorphone tablet 2 mg (Dilaudid) 2 mg, oral, Every 8 hours PRN, severe pain or score 7-10 of 10, Starting on 12/18/23 at 1005, Hold for sedation, sleeping, or if SBP <90, Does patient have renal impairment, frailty, or advanced age (avoid morphine) and unable to take oxycodone? No, Did the patient fail other oral opioids during hospitalization? No, Does the patient have documented allergies to oxycodone and/or morphine? No, Is the patient on hydromorphone chronically for pain? Yes Given 12/20/2023 6:01 PM CDT 2 mg Given 12/20/2023 10:31 AM CDT 2 mg Given 12/20/2023 12:43 AM CDT 2 mg Lactated Ringer's bolus 1,000 mL 1,000 mL, intravenous, at 1,000 mL/hr, Administer over 1 Hours, Once, On Wed12/18/23 at 0545, For 1 dose New Bag 12/18/2023 5:58 AM CDT 1,000 mL 1000 mL/hr Lactated Ringer's bolus 500 mL 500 mL, intravenous, at 500 mL/hr, Administer over 1 Hours, Once, On Wed12/17/23 at 1945, For 1 dose New Bag 12/17/2023 8:56 PM CDT 500 mL 500 mL/hr Lactated Ringer's bolus 500 mL 500 mL, intravenous, at 125 mL/hr, Administer over 4 Hours, Once, On Wed12/18/23 at 1700, For 1 dose New Bag 12/18/2023 4:50 PM CDT 500 mL 125 mL/hr lidocaine 5 % 2 patch (Lidoderm) 2 patch, transdermal, Administer over 12 Hours, Daily, First dose on 12/18/23 at 0600, Remove after 12 hours. For back pain Medication Applied 12/20/2023 6:16 AM CDT 2 patches Back Medication Applied 12/19/2023 5:46 AM CDT 2 patches Lower Back Medication Applied 12/18/2023 5:58 AM CDT 2 patches Mid Back fafekuhtfrum-stbm-NS-Ca-minerals 400 mcg (folic acid) tablet 1 tablet 1 tablet, oral, Daily, First dose on 12/18/23 at 0900 Given 12/20/2023 8:29 AM CDT 1 tablet Given 12/19/2023 8:37 AM CDT 1 tablet Given 12/18/2023 7:55 AM CDT 1 tablet naloxone injection 0.2 mg (Narcan) 0.2 mg, intravenous, As needed, respiratory depression, Starting on 12/18/23 at 1005, For RASS Score -4 or less, respiratory rate of less than 8 breaths/min. Notify provider/service and rapid response team (if available at institution). ondansetron (PF) injection 4 mg (Zofran) 4 mg, intravenous, Every 8 hours PRN, nausea, vomiting, Starting on Wed12/17/23 at 1620, If nausea/vomiting does not improve in 30 minutes post ondansetron administration then administer promethazine. Notify service if nausea symptoms persists. Given 12/20/2023 6:14 PM CDT 4 mg Given 12/20/2023 6:33 AM CDT 4 mg Given 12/19/2023 5:58 PM CDT [address] tablet 40 mg (Protonix) 40 mg, oral, Daily before morning meal, First dose on 12/18/23 at 0700, Swallow whole. Do NOT crush, chew, or split tablet. Given 12/20/2023 6:16 AM CDT 40 mg Given 12/19/2023 5:51 AM CDT 40 mg Given 12/18/2023 5:20 AM CDT 40 mg prochlorperazine injection 5 mg (Compazine) 5 mg, intravenous, Every 6 hours PRN, nausea, vomiting, Starting on Wed12/17/23 at 2333 Given 12/19/2023 11:29 PM CDT 5 mg Given 12/18/2023 12:01 AM CDT 5 mg promethazine injection 6.25 mg (Phenergan) 6.25 mg, intravenous, Every 6 hours PRN, nausea, vomiting, Starting on Wed12/17/23 at 1620, Administer ondansetron prior to promethazine. Do not administer promethazine in the setting of sedation or confusion. Given 12/19/2023 9:07 PM CDT 6.2 5 mg Given 12/18/2023 6:03 AM CDT 6.25 mg Given 12/17/2023 9:46 PM CDT 6.25 mg remdesivir (Veklury) 100 mg in NaCl 0.9% 120 mL IVPB (Veklury) 100 mg, intravenous, at 240 mL/hr, Administer over 30 Minutes, Every 24 hours, First dose on 12/18/23 at 1930, For 4 doses, Indications: COVID-19Indications:COVID-19 New Bag 12/20/2023 11:53 AM CDT 100 mg 2 40 mL/hr New Bag 12/19/2023 9:08 PM CDT 100 mg 240 mL/hr New Bag 12/18/2023 8:03 PM CDT 100 mg 240 mL/hr remdesivir (Veklury) 200 mg in NaCl 0.9% 140 mL IVPB (Veklury) 200 mg, intravenous, at 280 mL/hr, Administer over 30 Minutes, Once, On Wed12/17/23 at 1945, For 1 dose, Indications: COVID-19Indications:COVID-19 New Bag 12/17/2023 10:04 PM CDT 200 mg 2 80 mL/hr sodium chloride 0.9 % injection 3 mL 3 mL, intravenous, Every 12 hours scheduled, First dose on Wed12/17/23 at 2100, Peripheral Intravenous Catheter and Rapid Infusion Catheter, when no infusion to maintain patency Given 12/20/2023 8:29 AM CDT 3 mL Given 12/19/2023 9:06 PM CDT 3 mL Given 12/19/2023 8:38 AM CDT 3 mL tacrolimus capsule 3.5 mg (Prograf) 3.5 mg, oral, 2 times daily - immunosuppression, First dose on Wed12/17/23 at 2000 Given 12/20/2023 8:29 AM CDT 3.5 mg Given 12/19/2023 9:08 PM CDT 3.5 mg Given 12/19/2023 8:37 AM CDT 3.5 mg traZODone tablet 150 mg (DesyreL) 150 mg, oral, Daily at bedtime, First dose on Wed12/17/23 at 2100 Given 12/19/2023 9:08 PM CDT 150 mg Given 12/18/2023 9:03 PM CDT 150 mg Given 12/17/2023 10:22 PM CDT 150 mg documented in this encounter Active and Recently Administered Medications Times are shown in CDT. Scheduled Medication Order 12/18/2023 12/19/2023 12/20/2023 albumin human 25 % injection 25 g (COMPLETED) 25 g, intravenous, Once, On Wed12/18/23 at 1415, For 1 dose, If no infusion rate specified: Administer the 25% solution at 100 mL/hr 1410 (New Bag - Provider: Ruma Marroquin R.N.) aspirin chewable tablet 81 mg 81 mg, oral, Daily, First dose on 12/18/23 at 0900 0755 (Given - Provider: Minal Heard R.N.) 0839 (Given - Provider: Evon Domínguez R.N.) 0829 (Given - Provider: Juana Morrison R.N.) buprenorphine-naloxone 8-2 mg per SL Film 8 mg of buprenorphine (Suboxone) (COMPLETED) 8 mg of buprenorphine (1 Film), sublingual, Once, On 12/18/23 at 0030, For 1 dose, Select indication: Pain 0015 (Given - Provider: Bernarda Modi R.N.) cefepime in dextrose (iso osm) IVPB 2 g (Maxipime) (CANCELED) 2 g, intravenous, at 200 mL/hr, Administer over 30 Minutes, Every 12 hours, First dose on Wed12/17/23 at 1730, Drug Monitoring Program: Pharmacist to adjust medication dosing based on indication and drug clearance factors., Indications: neutropenic fever 0516 (New Bag - Provider: Bernarda Modi R.N.)1804 (New Bag - Provider: Minal Heard R.N.) 0546 (New Bag - Provider: Claire Baker R.N.) ergocalciferol capsule 50,000 Units (DrisdoL) 50,000 Units, oral, Weekly, First dose on 12/25/23 at 0900, For 1 dose, Swallow whole. Do NOT crush, chew or open capsule. gabapentin capsule 100 mg (Neurontin)(Linked Group 1) 100 mg, oral, Daily, First dose on Wed12/20/23 at 0900 0829 (Given - Provider: Juana Morrison R.N.) gabapentin capsule 100 mg (Neurontin)(Linked Group 1) 100 mg, oral, Every 24 hours, First dose on 12/19/23 at 1500 1434 (Given - Provider: Evon Domínguez R.N.) 1449 (Given - Provider: Juana Morrison R.N.) gabapentin capsule 200 mg (Neurontin)(Linked Group 1) 200 mg, oral, Daily at bedtime, First dose on 12/19/23 at 2100 2107 (Given - Provider: Ben Mansfield R.N.) gabapentin capsule 300 mg (Neurontin) (CANCELED) 300 mg, oral, 3 times daily, First dose on Wed12/17/23 at 2100 0558 (Given - Provider: Bernarda Modi R.N. - Comment: ok to give early per Dinorah Cruz MD)1458 (Given - Provider: Minal Heard R.N.)2148 (Not Given - Provider: Claire Baker R.N. - Reason: Other - Comment: Patient stated her dose is different from her home dose.) 1039 (Not Given - Provider: Evon Domínguez R.N. - Reason: Discontinued) ganciclovir 225 mg in NaCl 0.9% IVPB (Cytovene) 225 mg (rounded from 228 mg = 5 mg/kg ? 45.6 kg Dosing weight), intravenous, at 105 mL/hr, Administer over 60 Minutes, Every 12 hours, First dose on Wed12/19/23 at 1030, Drug Monitoring Program: Pharmacist to adjust medication dosing based on indication and drug clearance factors., Indications: CMV 1158 (New Bag - Provider: Evon Domínguez R.N.)2216 (New Bag - Provider: Ben Mansfield R.N.) 1031 (New Bag - Provider: Juana Morrison R.N.) heparin (porcine) injection 5,000 Units 5,000 Units, subcutaneous, Every 12 hours, First dose (after last modification) on Wed12/17/23 at 1730, Weight < 50 kg 0516 (Given - Provider: Bernarda Modi R.N.)1804 (Given - Provider: Minal Heard R.N.) 0546 (Given - Provider: Claire Baker R.N.)1643 (Given - Provider: Evon Domínguez R.N.) 0616 (Given - Provider: Ben Mansfield R.N.)1702 (Not Given - Provider: Yue Sam R.N. - Reason: Other) Lactated Ringer's bolus 1,000 mL (COMPLETED) 1,000 mL, intravenous, at 1,000 mL/hr, Administer over 1 Hours, Once, On 12/18/23 at 0545, For 1 dose 0558 (New Bag - Provider: Bernarda Modi R.N.) Lactated Ringer's bolus 500 mL (COMPLETED) 500 mL, intravenous, at 125 mL/hr, Administer over 4 Hours, Once, On 12/18/23 at 1700, For 1 dose 1650 (New Bag - Provider: Minal Heard R.N.) lidocaine 5 % 2 patch (Lidoderm)(Linked Group 2) 2 patch, transdermal, Administer over 12 Hours, Daily, First dose on 12/18/23 at 0600, Remove after 12 hours. For back pain 0558 (Medication Applied - Provider: Bernarda Modi R.N.)1700 (Medication Removed - Provider: Minal Heard R.N.) 0546 (Medication Applied - Provider: Claire Baker R.N.)1732 (Not Given - Provider: Evon Domínguez R.N. - Reason: Patient/family refused - Comment: pt refused patch am) 0616 (Medication Applied - Provider: Ben Mansfield R.N.)1810 (Medication Removed - Provider: Yue Sam R.N.) zawumiyymmcw-frqh-SO-Ca- minerals 400 mcg (folic acid) tablet 1 tablet 1 tablet, oral, Daily, First dose on 12/18/23 at 0900 0755 (Given - Provider: Minal Heard R.N.) 0837 (Given - Provider: Evon Domínguez R.N.) 0829 (Given - Provider: Juana Morrison RSumaNSuma) pantoprazole DR tablet 40 mg (Protonix) 40 mg, oral, Daily before morning meal, First dose on 12/18/23 at 0700, Swallow whole. Do NOT crush, chew, or split tablet. 0520 (Given - Provider: Bernarda Modi R.N.) 0551 (Given - Provider: Claire Baker R.N.) 0616 (Given - Provider: Ben Mansfield R.N.) remdesivir (Veklury) 100 mg in NaCl 0.9% 120 mL IVPB (Veklury) 100 mg, intravenous, at 240 mL/hr, Administer over 30 Minutes, Every 24 hours, First dose on Wed12/18/23 at 1930, For 4 doses, Indications: COVID-19 2002 (New Bag - Provider: Minal Herad R.N.) 210 (New Bag - Provider: Ben Mansfield R.N.) 1153 (New Bag - Provider: Juana Morrison R.N.) sodium chloride 0.9 % injection 3 mL 3 mL, intravenous, Every 12 hours scheduled, First dose on Wed12/17/23 at 2100, Peripheral Intravenous Catheter and Rapid Infusion Catheter, when no infusion to maintain patency 0756 (Given - Provider: Minal Heard R.N.)210 (Given - Provider: Claire Baker R.N.) 0838 (Given - Provider: Evon Domínguez R.N.)210 (Given - Provider: Ben Mansfield R.N.) 0829 (Given - Provider: Juana Morrison R.N.) tacrolimus capsule 3.5 mg (Prograf) 3.5 mg, oral, 2 times daily - immunosuppression, First dose on Wed12/17/23 at 2000 0755 (Given - Provider: Minal Heard R.N.)2102 (Given - Provider: Claire Baker R.N.) 0837 (Given - Provider: Evon Domínguez R.N.)210 (Given - Provider: Ben Mansfield R.N.) 0829 (Given - Provider: Juana Morrison R.N.) traZODone tablet 150 mg (DesyreL) 150 mg, oral, Daily at bedtime, First dose on Wed12/17/23 at 2100 2103 (Given - Provider: Claire Baker R.N.) 210 (Given - Provider: Ben Mansfield R.N.) PRN Medication Order 12/18/2023 12/19/2023 12/20/2023 acetaminophen tablet 500 mg (TylenoL) 500 mg, oral, Every 6 hours PRN, mild pain or score 1-3 of 10, fever, Starting on Wed12/17/23 at 1620, First line option. Not to exceed 2 grams in a 24 hour period. 0558 (Given - Provider: Bernarda Modi R.N.) HYDROmorphone tablet 2 mg (Dilaudid) 2 mg, oral, Every 8 hours PRN, severe pain or score 7-10 of 10, Starting on 12/18/23 at 1005, Hold for sedation, sleeping, or if SBP <90, Does patient have renal impairment, frailty, or advanced age (avoid morphine) and unable to take oxycodone? No, Did the patient fail other oral opioids during hospitalization? No, Does the patient have documented allergies to oxycodone and/or morphine? No, Is the patient on hydromorphone chronically for pain? Yes 1113 (Given - Provider: Minal Heard RGabby)2103 (Given - Provider: Claire Baker R.N.) 0842 (Given - Provider: Evon Domínguez RSumaN.)1642 (Given - Provider: Evon Domínguez R.N.) 0043 (Given - Provider: Ben Mansfield R.N.)1031 (Given - Provider: Juana Morrison R.N.)1801 (Given - Provider: Yue Sam R.N.) naloxone injection 0.2 mg (Narcan) 0.2 mg, intravenous, As needed, respiratory depression, Starting on 12/18/23 at 1005, For RASS Score -4 or less, respiratory rate of less than 8 breaths/min. Notify provider/service and rapid response team (if available at institution). ondansetron (PF) injection 4 mg (Zofran) 4 mg, intravenous, Every 8 hours PRN, nausea, vomiting, Starting on Wed12/17/23 at 1620, If nausea/vomiting does not improve in 30 minutes post ondansetron administration then administer promethazine. Notify service if nausea symptoms persists. 0516 (Given - Provider: Bernarda L Plohasz, R.N.) 1758 (Given - Provider: Andrew AvalosNSuma) 0633 (Given - Provider: Ben Mansfield R.N.)1814 (Given - Provider: Andrew MixNSuma) prochlorperazine injection 5 mg (Compazine) 5 mg, intravenous, Every 6 hours PRN, nausea, vomiting, Starting on Wed12/17/23 at 2333 0001 (Given - Provider: Bernarda Modi R.N.) 2329 (Given - Provider: Ben Mansfield R.N.) promethazine injection 6.25 mg (Phenergan) 6.25 mg, intravenous, Every 6 hours PRN, nausea, vomiting, Starting on Wed12/17/23 at 1620, Administer ondansetron prior to promethazine. Do not administer promethazine in the setting of sedation or confusion. 0603 (Given - Provider: Bernarda Modi R.N.) 2107 (Given - Provider: Ben Mansfield R.N.) sodium chloride 0.9 % injection 10 mL 10 mL, intravenous, As needed, line care, Starting on Wed12/17/23 at 1620, Peripheral Intravenous Catheter and Rapid Infusion Catheter, prior to blood sampling, post blood transfusion or post blood sampling sodium chloride 0.9 % injection 3 mL 3 mL, intravenous, As needed, line care, Starting on Wed12/17/23 at 1620, Prior to and following infusion and between multiple consecutive infusions: sodium chloride 0.9 % injection Linked Groups Order Group 1: gabapentin capsule 100 mg (Neurontin)Jump to med 100 mg, oral, Daily, First dose on Wed12/20/23 at 0900 And gabapentin capsule 100 mg (Neurontin)Jump to med 100 mg, oral, Every 24 hours, First dose on 12/19/23 at 1500 And gabapentin capsule 200 mg (Neurontin)Jump to med 200 mg, oral, Daily at bedtime, First dose on Wed12/19/23 at 2100 Group 2: lidocaine 5 % 2 patch (Lidoderm)Jump to med 2 patch, transdermal, Administer over 12 Hours, Daily, First dose on Wed12/18/23 at 0600, Remove after 12 hours. For back pain And lidocaine 5 % 1 patch (Lidoderm) (CANCELED) 1 patch, transdermal, Administer over 12 Hours, Daily, First dose on 12/18/23 at 0900, Remove after 12 hours. 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 [address] [facility] [place] [address] PCP - General Internal Medicine 12/01/21 [facility] [place] [facility] 08/25/21 documented as of this encounter
--- OUTSIDE RECORDS SUMMARY | 2024-02-20 21:47 | XMS_ITS | Encounter Summary ---
Author Organization [facility] Address [address] [place] [address] Care Team Providers Care Food Services Manager Name Role Phone Ana Red P.A.-C. Primary Care Pro vider Encounter Details Date Type Department Care Team (Latest Contact Info) Description 12/17/2023 Intake [facility] Social History Tobacco Use Types Packs/Day Years [...] often do you attend chur ch or anabaptist services? Patient declined 02/10/2022 Do [...] Answer Date Recorded PHQ-2 Score 0 06/18/2023 [facility] [...] your living situation today? [facility] live 03/12/2023 Education Answer Date Recorded What is the highest level of school you have completed or the highest degree you have received? Associate degree: occupational, technical, or vocational program 07/16/2021 Comments Unknown Sex and Gender Information Value Date Recorded Sex Assigned at Female 04/12/2021 7:39 PM [employer]PERVIS[employer] Legal Sex Female 7:53 PM [employer] Gender Identity Female 04/12/2021 7:39 PM [employer] Sexual Orientation Straight 04/12/2021 7: 39 PM SUPERVISOR TE[employer]ERS documented as of this encounter Plan of Treatment Upcoming Encounters Date Type Department Care Team (Late st Contact Info) Description 02/23/2024 8:20 AM CDT Appointment Department of Laboratory Medicine in [address] [phone] Noreen Ansari P.A.-C., M.S. [address] [place] [phone] 04/06/2024 2:30 PM SUPERVISOR TELLERS Clinical Communication Virtual Review in [place], [place] [address] [place] [phone] 04/07/2024 3:00 PM SUPERVISOR TELL[employer] Comprehensive Visit Department of Spine in [place], [place] [address] [place] [phone] Faviola Jiang APRN, C.N.P., M.S.N. 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 [address] [place] [phone] PCP - General Internal Medicine 12/01/21 [facility] [place] [facility] 08/25/21 documented as of this encounter
--- OUTSIDE RECORDS SUMMARY | 2024-02-20 21:47 | XMS_ITS | Encounter Summary ---
Author Organization [facility] Address [address] [place] [address] Care Team Providers Care Rail Bonder Name Role Phone Ana Red P.A.-C. Primary Care Pro vider Reason for Visit * Reason Onset Date Comments Appointment 10/19/2023 Encounter Details Date Type Department Care Team (Latest Contact Info) Description 10/19/2023 Clinical Communication [facility] [place], [place] [address] [place] [phone] August, Sony Mendez R.N. [address] [place] [phone] Appointment Social History Tobacco Use Types Packs/Day Years [...] How often do you attend chur or moravian services? Patient declined 02/10/2022 Do you belong to any clubs o r organizations such as samaritan groups, unions, fraternal [...] Answer Date Recorded PHQ-2 Score 0 06/18/2023 [facility] - [...] your living situation today? I have a [facility] place to live 03/12/2023 Education Answer Date Recorded What is the highest level of school you have completed or the highest degree you have received? Associate degree: occupational, technical, or vocational program 07/16/2021 Comments No Sex and Gender Information Value Date Recorded Sex Assigned at Female 04/12/2021 7:39 PM GUN STRIPER Legal Sex Female 7:53 PM GUN STRIPER Gender Identity Female 04/12/2021 7:39 PM GUN STRIPER Sexual Orientation Straight 04/12/2021 7: 39 PM GUN STRIPER documented as of this encounter Plan of Treatment Upcoming Encounters Date Type Department Care Team (Late st Contact Info) Description 02/23/2024 8:20 AM CDT Appointment Department of Laboratory Medicine in [address] [phone] Noreen Ansari P.A.-C., M.S. [address] [place] [address] 04/06/2024 2:30 PM GUN STRIPER Clinical Communication Virtual Review in [place], [place] [address] [place] [phone] 04/07/2024 3:00 PM GUN STRIPER Comprehensive Visit Department of Spine in [place], [place] [address] [place] [phone] Faviola Jiang, YARITZA, C.N.P., M.S.N. 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 [address] [place] [address] PCP - General Internal Medicine 12/01/21 [facility] 08/25/21 documented as of this encounter
--- OUTSIDE RECORDS SUMMARY | 2024-02-20 21:48 | XMS_ITS | Referral Summary ---
Author Organization [facility] Address [address] [place] [address] Care Team Providers Care Pest Control Operator Name Role Phone Unavailable Primary Care Provider Unavailabl e Allergies Active Allergy Reactions Criticality Noted Date Comments Azithromycin Nausea 09/30/2018 Nausea and vomiting. Medications Medication Sig Dispensed Refills Start Date End Date Status acetaminophen (TYLENOL) 325 mg oral tablet Take 325-975 mg by mouth every 4 (four) hours as needed. Active ondansetron (ZOFRAN) 4 mg oral ODT Dissolve 4 mg in mouth every 6 (six) hours as needed for nausea. Authorized by: Dominick Hickey, Quantitiy: 10 tablets No refils 09/11/2018 Active omeprazole (PRILOSEC) 20 mg oral delayed release capsule Take 20 mg by mouth once a day as needed. Take once daily before a meal. Authorized by: Catia Braxton MD Quanity: 30 tablets Refill: 2 refills by 09/20/2019 09/20/2018 Active potassium chloride (K-DUR) 20 mEq oral extended release tablet Take 20 mEq by mouth twice a day with breakfast and lunch. Authorized by: Catia Hickey MD Quanity: 60 tablets No refills 09/20/2018 Active traZODone (DESYREL) 50 mg oral tablet Take 50 mg by mouth at bedtime as needed for Sleep. Active oxyCODONE, immediate release, (ROXICODONE) 5 mg oral tablet Take 5 mg by mouth every 6 (six) hours as needed. Active LORazepam (ATIVAN) 0.5 mg oral tablet Take 0.5 mg by mouth once a day as needed. Active Active Problems Problem Noted Date Diagnosed Date Acute hepatitis 09/30/2018 Accidental acetaminophen overdose 09/30/2018 Closed bicondylar fracture o f distal end of left humerus with routine healing 09/30/2018 Idiopathic pancreatitis 09/30/2018 Gastroesophageal reflux disease without esophagi tis 09/30/2018 Marijuana abuse 09/30/2018 Tobacco abuse 09/30/2018 Hypomagnesemia 09/30/2018 Social History Tobacco Use Types Packs/Day Years Used Date Smoking Tobacco: Some Days Cigarettes 0.1 10.8 Started: 2013 Smokeless Tobacco: Never Tobacco Cessation:Ready to Q uit: No; Counseling Given: No Comments:Currently smokes 1 cigarettes every 2 days. Alcohol Use Standard Drinks/Week Comments Yes 8 (1 standard drink = 0.6 oz pur e alcohol) 2-3 drinks 4 times per week Sex and Gender Information Value Date Recorded Sex Assigned at Not on file Gender Identity Not on file Sexual Orientation Not on file Last Filed Vital Signs Vital Sign Reading Time Taken Comments Blood Pressure 101/55 10/02/2018 10:29 AM CDT Pulse 82 10/02/2018 10:29 AM CDT Temperature 36.8 ??C (98.3 ??F) 10/02/2018 10:29 AM C DT Respiratory Rate 18 10/02/2018 10:29 AM CDT Oxygen Saturation 93% 10/02/2018 10:29 AM CDT Inhaled Oxygen Concentration - - Weight 69.2 kg (152 lb 9.6 oz) 10/02/2018 7:02 A M CDT Height 157.5 cm (5' 2) 09/30/2018 5:27 AM CDT Body Mass Index 27.91 09/30/2018 5:27 AM CDT Plan of Treatment Not on file Procedures Procedure Name Priority Date/Time Associated Diagnosis Comments HEP A/B/C PANEL Routine 09/30/2018 6:42 AM CDT from Last 3 Months or Most Recently Relevant to Health Maintenance Results * Hepatitis A/B/C Panel (09/30/2018 6:42 AM CDT) HEP BC IGM [place] Non-Reacti ve Non-Reacti ve 09/30/2018 8:24 AM CDT [facility] HEP A IGM [place] Non-Reacti ve Non-Reacti ve 09/30/2018 8:24 AM CDT [facility] HEP BS ANTIGEN Non-Reacti ve Non-Reacti ve 09/30/2018 8:24 AM CDT [facility] Hepatitis C Antibody Non-Reacti ve Non-Reacti ve 09/30/2018 8:24 AM CDT [facility] Blood 09/30/2018 6:42 AM CDT 09/30/2018 6:59 AM CDT Robby A Matter IMMUNOLOGY ORDERABLE [facility] [address] [place] [address] from Last 3 Months or Most Recently Relevant to Health Maintenance Advance Directives For more information, please contact: [phone] * Full Code (Latest Code Status on File) Date Activated Date Inactivated Comments 09/30/2018 4:42 AM 10/02/2018 6:07 PM Question Answer Comments How was code status determined? Patient
--- OUTSIDE RECORDS SUMMARY | 2024-02-20 21:48 | XMS_ITS | Clinical Summary ---
Author Organization [email or web address] Address [place], [place] [address] Care Team Providers Care Technical Specialist Cytology Name Role Phone Neda Ana HORVATH Primary Care Provider [phone] Allergies Active Allergy Reactions Criticality Noted Date Comments Azithromycin Nausea And Vomiting Low 05/07/2016 Other reaction(s): Other (see comments) Unknown Other reaction(s): Unknown Other reaction(s): GI intolerance Gabapentin Other - Describe In Comment Field High 11/26/2021 Encephalopathy Medications Medication Sig Dispensed Refills Start Date End Date Status vitamin a (AQUASOL A) 10,000 unit capsule Take 10,000 units by mouth every Wednesday, Wednesday and Wednesday. Active furosemide (LASIX) 40 mg tablet Take 40 mg by mouth once daily. Active spironolactone (ALDACTONE) 100 mg tablet Take 100 mg by mouth once daily. Active magnesium oxide 400 mg magnesium capsule Take 400 mg by mouth 2 times daily. Active ciprofloxacin HCl (CIPRO) 500 mg tablet Take 500 mg by mouth once daily. Active ergocalciferol (VITAMIN D2; DRISDOL) 50,000 unit capsule Take 50,000 units by mouth once weekly. On Mondays. Active folic acid 1 mg tablet Take 1 mg by mouth once daily. Active pantoprazole (PROTONIX) 40 mg delayed-release tablet Take 40 mg by mouth once daily. Active rifAXIMin (XIFAXAN) 550 mg tablet Take 550 mg by mouth 2 times daily. Active thiamine (VITAMIN B1) 100 mg tablet Take 100 mg by mouth once daily. Active lactulose 10 gram/15 mL solution Take 10 g by mouth three times daily. May take one additional dose per day based on number of stools. Active diclofenac topical (VOLTAREN) 1 % gel Apply topically to affected area(s) 4 times daily if needed (pain). Active zinc sulfate 50 mg zinc (220 mg) capsule Take 220 mg by mouth once daily. Active lidocaine 4 % topical patch Apply on dry, clean, hairless skin once daily if needed for Pain. Apply to intact skin to cover most painful area for max 12hr per 24hr period. Active traZODone (DESYREL) 50 mg tablet Take 50 mg by mouth at bedtime if needed for Sleep. Active prochlorperazine (COMPAZINE) 10 mg tablet Take 10 mg by mouth every 6 hours if needed for Nausea/Vomiting. Active acetaminophen (TYLENOL EXTRA STRGTH) 500 mg tablet Take 1,000 mg by mouth every 6 hours if needed. Max acetaminophen dose: 4000mg in 24 hrs. Active cyclobenzaprine (FLEXERIL) 5 mg tablet Take 5 mg by mouth once daily if needed. 01/30/2022 Active oxyCODONE (ROXICODONE) 5 mg immediate release tablet Take 2.5-5 mg by mouth 2 times daily if needed. 02/16/2022 Active ondansetron (ZOFRAN ODT) 4 mg disintegrating tabletIndications:Na usea and vomiting, unspecified vomiting type Place 1 Tablet (4 mg) on the tongue every 8 hours if needed for Nausea/Vomiting. 12 Tablet 10/18/2023 Active rx ondansetron (ZOFRAN ODT) 4 mg orally disintegrating tablet (ED DC MED)Indications:Naus ea and vomiting, unspecified vomiting type,Abdominal pain, unspecified abdominal location Place 1 Tablet (4 mg) on the tongue every 8 hours if needed (nausea, vomiting). 4 Tablet 10/18/2023 Active Active Problems Problem Noted Date Diagnosed Date Hepatic encephalopathy 02/19/2022 Bilateral low back pain with bilateral sciatica 02/09/2022 Metabolic encephalopathy 02/08/2022 Alcoholic hepatitis 02/08/2022 Decompensation of cirrhosis of liver 02/08/2022 Portal hypertension 02/08/2022 Anemia 02/08/2022 Esophageal varices 02/08/2022 Current drinker of alcohol 10/25/2021 Chronic pain syndrome 10/10/2021 Hepatic encephalopathy 10/10/2021 Encounter for long-term (current) use of insulin 10/10/2021 Eating disorder 10/10/2021 Portal hypertension 09/05/2021 Overview (10/25/2021): Added automatically from request for surgery [id number] Acute alcoholic hepatitis 08/26/2021 Acquired coagulation factor deficiency Overview (10/25/2021): Added automatically from request for surgery [id number] Thrombocytopenia 07/01/2021 Alcoholic cirrhosis 03/12/2021 Acute respiratory [...] hardware removal 07/12/2019 Gastroesophageal reflux disease without esophagi tis 04/16/2019 Idiopathic acute pancreatitis without necrosis o r infection 04/15/2019 S/P ORIF (open reduction internal fixation) frac ture 09/21/2018 Acute pancreatitis 09/08/2018 Hypokalemia 09/08/2018 Controlled substance agreement signed 01/12/2017 Overview (01/12/2017): Signed: 07/05/12-Kiana Pino APRN, DOG RACES MANAGER - psychiatry Anxiety disorder; NOS; APPLE and Panic Disorder Sy mptoms 01/19/2012 Attention deficit disorder without mention of hy peractivity 06/30/2007 Iron deficiency anemia 03/06/2007 seasonal allergies 04/06/2006 Drug abuse, marijuana Resolved Problems Problem Noted Date Diagnosed Date Resolved Date Abnormal LFTs 01/23/2021 08/26/2021 MOSHE (acute kidney injury) 04/15/2019 Closed fracture of distal en d of left humerus with routine healing 11/30/2018 04/14/2019 Hypokalemia 09/11/2018 04/14/2019 Fracture, humerus 08/29/2018 04/14/2019 APPLE (generalized anxiety disorder) 08/06/2015 04/14/2019 Insomnia 04/21/2014 04/14/[address] 04/13/2014 6 Overview (04/13/2014): Remove 04/13/2017 Drug use 03/07/2014 04/14/2019 Late care 02/28/2014 4 Adjustment disorder with mix ed anxiety and depressed mood 03/19/2010 01/19/2012 Immunizations Name Administration Dates Next Due AMB Influenza, IIV3 (Age >=3 years)(Flu Clinic Only) 02/26/2009,03/26/2008 DTP 03/14/1992, 1,1990, 991 DTaP 05/26/1995 HIB PRP-OMP (PedvaxHIB) 02/08/1992,06/01/1991, Hepatitis B (Peds) 12/28/2000,12/17/1997, 997 Influenza, IIV3 (Age >=3 years) 02/27/20 09,03/26/2008,03/21/2007, 003,03/03/2003 Influenza, IIV4 03/07/2014 MMR 12/17/1997,11/09/1991 Oral Polio Vaccine 05/26/1995, 2,02/23/1991, 991,1990 Td (Age >=7 Years) 09/08/2002 Tdap 03/07/2014 [...] Years Used Date Smoking Tobacco: Former Cigarettes 0.1 2 0 12/13/2019 - 12/12/2021 Smokeless Tobacco: Never Tobacco Cessation:Ready to Q uit: Yes; Counseling Given: Yes Alcohol Use Standard Drinks/Week Comments Not Currently 0 (1 standard drink = 0.6 oz pur e alcohol) Sober for last year PHQ-2 Answer Date Recorded PHQ-2 Score 0 02/07/2019 Social Connections Answer Date Recorded Frequency of Communication with Friends and Fami ly Not on file 08/10/2022 Financial Resource Strain Answer Date R ecorded Difficulty of Paying Living Expenses Not on file 04/23/2021 Difficulty of Paying Living Expenses Not on file 04/23/2021 Sex and Gender Information Value Date Recorded Sex Assigned at Not on file Gender Identity Not on file Sexual Orientation Not on file Obstetrics History Para Term AB IAB SAB Ectopic Multiple Livin g Live Births 1 1 1 1 Date Outcome GA Total Labor Labor/2nd/3rd Weight Sex Type Anes PTL Angelica A1 A5 Name Clin 014 Term 41w 0d 18h 00m/ 3.4 kg (7 lb 8 oz) M Vag Epidura l Comments:adopted out, ihlen couple. patient did meet couple. Last Filed Vital Signs Vital Sign Reading Time Taken Comments Blood Pressure 117/75 10/18/2023 9:00 PM CDT Pulse 74 10/18/2023 9:00 PM CDT Temperature 37 ??C (98.6 ??F) 10/18/2023 5:12 PM CDT Respiratory Rate 18 10/18/2023 5:12 PM CDT Oxygen Saturation 96% 10/18/2023 9:00 PM CDT Inhaled Oxygen Concentration - - Weight 52.6 kg (116 lb) 10/18/2023 5:12 PM CDT Height 157.5 cm (5' 2) 10/18/2023 5:12 PM CDT Body Mass Index 21.22 10/18/2023 5:12 PM CDT Plan of Treatment Health Maintenance Due Date Last Done Comments Pap test for age 21-65 02/28/2017 02/28/2014 Depression screening for age 12+ 05/09/2020 05/09/2019, 05/08/2019, 02/07/2019, Additional history exists BMI (ht and wt on same day) for age 18+ 11/08/2020 11/09/2019, 07/12/2019, 06/23/2019, Additional history exists COVID-19 vaccine series (2023- season) 2024 04/15/2021, 03/25/2021 Influenza for age 9-49 01/02/2024 4, 02/26/2009, 02/26/2009, Additional history exists Tetanus booster 03/07/2024 03/07/2014, 09/08/2002 HIV for age 15-65 Completed 02/26/2014 Tdap Completed 03/07/2014 Hepatitis C screening for age 18-79 Completed 09/30/2018, 02/26/2014 Pneumococcal series for age 6-64 Aged Out No longer eligible based on patient's age to complete this topic Medical Devices Implanted Type Area Director [employer] Device Identifier Shelf Expiration Date Model / Serial / Lot Partially Threaded Screws Implanted:Qty: 1 on 08/29/2018 by Omar Rodriguez MD at [facility] Left: [employer] [id number] / / Description:From [facility] zay tray 1/3 Tubular Plate Implanted:Qty: 1 on 08/29/2018 by Omar Rodriguez MD at [facility] Left: [employer] [id number] / / Description:From [facility] variax small frag tray 2.7mm Non Locking Screw Implanted:Qty: 2 on 08/29/2018 by Omar Rodriguez MD at [facility] Left: Elbow [id number] / / Description:From [facility] zay tray 2.7mm Locking Screw Implanted:Qty: 1 on 08/29/2018 by Omar Rodriguez MD at [facility] Left: Elbow [id number] / / Description:From [employer] zay tray 2.7mm Locking Screw Implanted:Qty: 1 on 08/29/2018 by Omar Rodriguez MD at [facility] Left: [employer] [id number] / / Description:From [employer] zay tray Explanted Type Area Director [employer] Device Identifier Shelf Expiration Date Model / Serial / Lot 2.7mm Locking Screw Explanted:Qty: 1 on 08/29/2018 by Omar Rodriguez MD at [facility] Left: [employer] [id number] / / Description:From [facility] zay tray 2.7mm Non Locking Screw Explanted:Qty: 1 on 08/29/2018 by Omar Rodriguez MD at [facility] Left: [employer] [id number] / / Description:From [facility] zay tray 2.7 Mm Locking Screw Implanted:Qty: 1 on 08/29/2018 by Omar Rodriguez MD at [facility] Explanted:Qty: 1 on 06/27/2019 by Omar Rodriguez MD at [facility] Left: [employer] [id number] / / Description:From [employer] zay tray 2.7mm Locking Screw Implanted:Qty: 1 on 08/29/2018 by Omar Rodriguez MD at [facility] Explanted:Qty: 1 on 06/27/2019 by Omar Rodriguez MD at [facility] Left: [employer] [id number] / / Description:From [employer] zay tray 2.7mm Non Locking Screw Implanted:Qty: 1 on 08/29/2018 by Omar Rodriguez MD at [facility] Explanted:Qty: 1 on 06/27/2019 by Omar Rodriguez MD at [facility] Left: [employer] [id number] / / Description:From [employer] zay tray Distal Medial Humerus Plates Implanted:Qty: 1 on 08/29/2018 by Omar Rodriguez MD at [facility] Explanted:Qty: 1 on 06/27/2019 by Omar Rodriguez MD at [facility] Left: [employer] [id number] / / Description:Lolennie from [employer] elbow add on tray 2.7mm Non Locking Screw Implanted:Qty: 1 on 08/29/2018 by Omar Rodriguez MD at [facility] Explanted:Qty: 1 on 06/27/2019 at [facility] Left: [employer] [id number] / / Description:From [facility] zay tray 2.7 Mm Non-Locking Screw Implanted:Qty: 3 on 08/29/2018 by Omar Rodriguez MD at [facility] Explanted:Qty: 3 on 06/27/2019 by Omar Rodriguez MD at [facility] Left: [employer] [id number] / / Description:From [facility] variax 2 elbow 2.7mm Locking Screw Implanted:Qty: 1 on 08/29/2018 by Omar Rodriguez MD at [facility] Explanted:Qty: 1 on 06/27/2019 at [facility] Left: [employer] [id number] / / Description:From [facility] zay tray Procedures Procedure Name Priority Date/Time Associated Diagnosis Comments ACUTE HEPATITIS PANEL FRANCESCA 09/30/2018 12:15 AM CDT VEHICLE RETURN ASSOCIATE THIN PREP PAP SCREEN IMAGED Routine 02/28/2014 2:36 PM CDT , first ANTI HIV 1/2 Routine 02/26/2014 3:52 PM CDT from Last 3 Months or Most Recently Relevant to Health Maintenance Results * ACUTE HEPATITIS PANEL (09/30/2018 12:15 AM CDT) HEPATITIS C ANTIBODY Non-Reactive Non-Reactive 09/30/2018 4:07 PM CDT [facility] Comment:Antibodies to HCV no t detected; does not exclude the possibility of exposure to HCV. IGM ANTI HAV Non-Reactive Non-Reactive 10/01/19 19 4:07 PM CDT [facility] HBSAG Nonreactive Nonreactive 09/30/2018 4:07 PM CDT [facility] IGM ANTI HBC Non-Reactive Non-Reactive 10/01/19 19 4:07 PM CDT [facility] Blood BLOOD SPECIMEN / Unknown Butterfly / Unknown 09/30/2018 12:15 AM CDT 09/30/2018 12:24 AM CDT Narrative [facility] - 09/30/2018 4:07 PM CDT Anti-HBc IgM not detected. Does not exclude the possibility of exposure to or infection with HBV. Ervin Gaytan MD SEND OUTS [facility] [address] [place] [address], * VEHICLE RETURN ASSOCIATE THIN PREP PAP SCREEN IMAGED (02/28/2014 2:36 PM CDT) Pathologist [facility] CYTOLOGY CYTOPATHOLOGY REPORT [facility] Status: Final Status ?[id number] CLINICAL INFORMATION Last Date of LMP ? : Last Pap Date ?:unknown Last Pap Result ?:First Pap/Unknown ABN [place]/Bx Past 5 YRS :None Hormone Usage ?:BCP/OCP/Patch/R ing Menstrual Status ? :Regular Periods [place]/Bx done today ? :No Additional Information :None given HPV Request ?:HPV if ASCUS SPECIMEN SOURCE ?:Cervical/vagina l ThinPrep Vial, screening SPECIMEN ADEQUACY ?:Satisfactory for evaluation No endocervical ? component seen in a patient. INTERPRETATION/RES ULT Negative for intraepithelial lesion or malignancy (NIL) Cytology 1st Screener ??:gn Signed by ?:gn This specimen was screened by the FDA approved ThinPrep Imaging System and manually reviewed. NOTE: ??The Pap test is a screening technique, not a diagnostic procedure. ??It is used ??primarily to screen for squamous cancers and precursor lesions. ??Published studies have shown that it is subject to both false negative and false positive results. ??The pap test should not be used as the sole means to diagnose or exclude pre-malignant and malignant lesions. COLLECTED:02/28/14 ? ACCESSIONED: ??03/01/14 ?? SIGNED: ??03/05/14 [facility] PAP [place] CODE NIL [facility] Tissue specimen (specimen) (Cervical/Vagina l) 02/28/2014 2:36 PM CDT 02/28/2014 2:33 PM CDT Faviola Francis MD PATHOLOGY/ TOLOGY [facility] INTERNAL ZIP [id number] [place] [address] * ANTI HIV 1/2 (02/26/2014 3:52 PM CDT) HIV-1/HIV-2 ANTIBODY Non-Reacti ve Non-Reacti ve 02/26/2014 8:21 PM CDT [facility] Blood specimen (specimen) BLOOD SPECIMEN / Unknown Venipuncture / Unknown 02/26/2014 3:52 PM CDT 02/26/2014 3:52 PM CDT Narrative [facility] - 02/26/2014 8:21 PM CDT HIV-1 p24 and HIV-1/HIV-2 Ab not detected Monika RAMIREZ SEND OUTS [facility] [address] [place] [address], [place] from Last 3 Months or Most Recently Relevant to Health Maintenance Advance Directives * Full Code (Latest Code Status on File) Date Activated Date Inactivated Comments 02/19/2022 10:21 AM 02/20/2022 6:12 PM Question Answer Comments Code Status Discussion: Reviewed Preferences * Full Code Date Activated Date Inactivated Comments 02/08/2022 10:16 AM 02/09/2022 6:52 PM Question Answer Comments Code Status Discussion: Reviewed Preferences * Full Code Date Activated Date Inactivated Comments 08/26/2021 1:03 PM 08/27/2021 2:31 PM Question Answer Comments Code Status Discussion: Reviewed Preferences * Full Code Date Activated Date Inactivated Comments 01/30/2021 5:11 PM 01/31/2021 6:49 PM Question Answer Comments Code Status Discussion: Not Discussed * Full Code Date Activated Date Inactivated Comments 01/23/2021 2:38 AM 01/26/2021 5:14 PM Question Answer Comments Code Status Discussion: Not DiscussedPer Existin g Order Care Teams Technical Specialist Cytology Relationship Specialty Start Date End Date Ana Red PA-C [address] [facility] [place] [address] PCP - General Physician Recorder Of Deeds 02/09/22
--- OUTSIDE RECORDS SUMMARY | 2024-02-20 21:48 | XMS_ITS | Clinical Summary ---
Author Organization [facility] Address [address] [place] [address] Care Team Providers Care Box Spring Maker Name Role Phone Unavailable Primary Care Provider [...] Date Last Done Comments Pap Smear 1990 Anxiety Screening (APPLE-2) 07/10/1991 Depression Assessment (PHQ-2) 07/10/1991 COVID-19 Vaccine ( - 2023- season) 2024 Influenza Vaccine (#1) 2024 9, 03/26/2008, 03/21/2007, Additional history exists Adult Tetanus Booster 03/07/2024 03/07/2014 RSV Vaccines (1 - 1-dose 75+ series) 2065 Hepatitis C Screening Completed 09/30/2018 Pneumococcal <65 Aged Out No longer e ligible based on patient's age to complete this topic Procedures Procedure Name Priority Date/Time Associated Diagnosis Comments HEP A/B/C PANEL Routine 09/30/2018 6:42 AM CDT from Last 3 Months or Most Recently Relevant to Health Maintenance Results * Hepatitis A/B/C Panel (09/30/2018 6:42 AM CDT) HEP BC IGM DELBERT Non-Reacti ve Non-Reacti ve 09/30/2018 8:24 AM CDT [facility] HEP A IGM DELBERT Non-Reacti ve Non-Reacti ve 09/30/2018 8:24 AM CDT [facility] HEP BS ANTIGEN Non-Reacti ve Non-Reacti ve 09/30/2018 8:24 AM CDT [facility] Hepatitis C Antibody Non-Reacti ve Non-Reacti ve 09/30/2018 8:24 AM CDT [facility] Blood 09/30/2018 6:42 AM CDT 09/30/2018 6:59 AM CDT Robby A Matter IMMUNOLOGY ORDERABLE [facility] [address] [place] [address] from Last 3 Months or Most Recently Relevant to Health Maintenance Advance Directives For more information, please contact: [phone] * Full Code (Latest Code Status on File) Date Activated Date Inactivated Comments 09/30/2018 4:42 AM 10/02/2018 6:07 PM Question Answer Comments How was code status determined? Patient
--- NOTE | 2024-02-20 22:00 | ED.GENADULT ---
HPI - General Adult General Date Seen: 02/20/24 Chief complaint: Ear/Nose/Throat Problem Stated complaint: left side face pain and swelling Time Seen by Provider: 02/20/24 21:07 Source: patient Mode of arrival: ambulatory Limitations: no limitations History of Present Illness HPI narrative: Patient is a 33-year-old female who has a hepatic transplant, last year in October, presents here with left-sided facial pain, she has had this now for 3-4 days has seen Dentistry, is post be on amoxicillin but it makes her nauseous when she takes this 3 times a day, she has had no fevers or chills, feels the pain radiates down her the throat, and does notice the left side of her face seems more swollen than the right. She has been able to eat and drink normally, she is told that she should take Tylenol for the discomfort by her transplant surgeon but avoidance of NSAIDs is suggested also. She called her transplant surgeon he recommended that she comes in to be seen. Related Data Home Medications ?Medication ?Instructions ?Recorded ?Confirmed folic acid 1 mg tablet 1 mg PO QDAY 10/31/21 12/14/23 levonorgestrel 21 mcg/24 hr (up to 1 device intrauterine ONCE 10/31/21 09/26/22 8 years) 52 mg intrauterine device furosemide 20 mg tablet 40 mg PO QAM 11/12/21 12/14/23 ondansetron 8 mg disintegrating 8 mg PO TID PRN 11/12/21 09/26/22 tablet thiamine HCl (vitamin B1) 100 mg 100 mg PO QDAY 11/12/21 12/14/23 tablet diazepam 5 mg tablet 5 mg PO HS 01/31/22 09/26/22 ergocalciferol (vitamin D2) 1,250 50,000 unit PO QWEEK 01/31/22 09/26/22 mcg (50,000 unit) capsule magnesium oxide 400 mg PO BID 01/31/22 12/14/23 promethazine 25 mg tablet 25 mg PO Q6H PRN 01/31/22 12/14/23 ropinirole 2 mg tablet 2 mg PO QHS 01/31/22 01/31/22 spironolactone 100 mg tablet 100 mg PO QDAY 03/17/22 12/14/23 mycophenolate mofetil 500 mg tablet 1,000 mg PO BID 12/14/23 12/14/23 tacrolimus 0.5 mg capsule, 0.5 mg PO BID 12/14/23 12/14/23 immediate-release tacrolimus 1 mg capsule, mg PO 12/14/23 immediate-release Previous Rx's ?Medication ?Instructions ?Recorded pantoprazole 40 mg tablet,delayed 40 mg PO QDAY #30 tabs 11/25/21 release rifaximin 550 mg tablet (Xifaxan) 550 mg PO BID #60 tabs 11/25/21 magnesium oxide 400 mg PO BID #180 caps 12/04/21 vitamin A 3,000 mcg (10,000 unit) 10,000 unit PO .COMPLEX #40 caps 12/04/21 capsule zinc sulfate 50 mg zinc (220 mg) 50 mg PO QDAY #90 caps 12/04/21 capsule cyclobenzaprine 5 mg tablet 5 mg PO QDAY PRN muscle spasm #15 01/09/22 tabs acetaminophen 500 mg tablet 500 mg PO Q6H PRN pain #60 tabs 01/16/22 (Tylenol Extra Strength) cholecalciferol (vitamin D3) 10 10 mcg PO QDAY #30 caps 01/16/22 mcg (400 unit) capsule diclofenac sodium 1 % topical gel 2 g topical QID #100 grams 01/16/22 (Voltaren Arthritis Pain) lactulose 10 gram/15 mL oral 20 g (30 mL) PO TID #946 mL 01/16/22 solution lidocaine 5 % topical patch 1 patch topical QDAY #30 ea 01/16/22 spironolactone 50 mg tablet 50 mg PO QDAY #30 tabs 01/16/22 Allergies Allergy/AdvReac Type Severity Reaction Status Date / Time azithromycin Allergy Unknown Vomiting Verified 09/26/22 13:13 gabapentin Allergy Unknown Uncoded 12/28/21 22:18 Review of Systems Status of ROS: Reports: 10 or more systems reviewed and unremarkable except as noted in History and below [facility] Medical History Vitamin D deficiency ?E55.9 - Vitamin D deficiency, unspecified (ICD-10) Tobacco abuse ?Z72.0 - Tobacco use (ICD-10) Chronic leg pain ?M79.606 - Pain in leg, unspecified (ICD-10) ?G89.29 - Other chronic pain (ICD-10) Stage 4 chronic kidney disease ?N18.4 - Chronic kidney disease, stage 4 (severe) (ICD-10) Restless legs syndrome ?G25.81 - Restless legs syndrome (ICD-10) Pyelonephritis ?N12 - Tubulo-interstitial nephritis, not specified as acute or chronic (ICD-10) Patent foramen ovale (03/2020) ?Q21.1 - Atrial septal defect (ICD-10) Malpositioned intrauterine device (IUD) ?T83.32XA - Displacement of intrauterine contraceptive device, initial encounter (ICD-10) Insomnia ?G47.00 - Insomnia, unspecified (ICD-10) History of migraine ?Z86.69 - Personal history of other diseases of the nervous system and sense organs (ICD-10) Hepatic neuropathy ?K76.9 - Liver disease, unspecified (ICD-10) ?G99.0 - Autonomic neuropathy in diseases classified elsewhere (ICD-10) Hepatic encephalopathy ?K72.90 - Hepatic failure, unspecified without coma (ICD-10) Hepatic cirrhosis ?K74.60 - Unspecified cirrhosis of liver (ICD-10) Generalized anxiety disorder with panic attacks ?F41.1 - Generalized anxiety disorder (ICD-10) ?F41.0 - Panic disorder [episodic paroxysmal anxiety] (ICD-10) Gastroesophageal reflux disease without esophagitis (04/16/19) ?K21.9 - Gastro-esophageal reflux disease without esophagitis (ICD-10) Congenital QT prolongation on electrocardiography (01/30/21) ?I45.81 - Long QT syndrome (ICD-10) Chronic pancreatitis (01/23/21) ?K86.1 - Other chronic pancreatitis (ICD-10) Attention deficit hyperactivity disorder (ADHD) ?F90.9 - Attention-deficit hyperactivity disorder, unspecified type (ICD-10) Anemia in chronic kidney disease ?N18.9 - Chronic kidney disease, unspecified (ICD-10) ?D63.1 - Anemia in chronic kidney disease (ICD-10) Allergic rhinitis ?J30.9 - Allergic rhinitis, unspecified (ICD-10) Abdominal ascites ?R18.8 - Other ascites (ICD-10) Surgical History Status post hardware removal (06/27/19) ?Z98.890 - Other specified postprocedural states (ICD-10) History of foot surgery ?Z98.890 - Other specified postprocedural states (ICD-10) Family History Father Hyperlipidemia Maternal Grandfather High blood pressure Prostate cancer Other Type 2 diabetes mellitus Social History Narrative: marijuana use single, no kids, Олег Ochoa, smoker, sober x 1 year Smoking Status: Former smoker Do you use any of these nicotine containing products: None Second hand tobacco smoke exposure: No How often do you have a drink containing alcohol: never AUDIT-C Alcohol total score: 0 Non-prescribed substance use: denies use service: No Exam Narrative: Exam Narrative: On examination here she looks fantastic compared to which she used to look like. She is still little bit pale but she is not yellow. There is maybe a little bit of fullness of the left upper jaw area. But otherwise normal symmetry there is no lymphadenopathy anterior posterior chains are neck is supple full range of motion I can get 2 fingers in her mouth, there is some mild trismus noted, on the left upper tooth. On tooth 14 15, is no evidence of pointing, or abscess formation, there is no swelling of the neck, no meningismus, Const: Vital Signs, click to edit/add: Vital Signs - 24 hr 02/20/24 21:14 Temperature 97.6 F Pulse Rate [Left P ulse Oximeter] 108 H Respiratory Rate 16 Blood Pressure [Ri ght Upper Arm] 106/74 Pulse Oximetry 100 Oxygen Delivery Me thod Room Air Documenting provider has reviewed patient's vital signs: yes Course Vital Signs Vital signs: Initial Vital Signs Temperature 97.6 F 02/20/24 21:14 Temperature Source Temporal Artery Scan 02/20/24 21:14 Pulse Rate 108 H 02/20/24 21:14 Pulse Rhythm Regular 02/20/24 21:14 Respiratory Rate 16 02/20/24 21:14 Blood Pressure 106/74 02/20/24 21:14 Blood Pressure Mean 84 02/20/24 21:14 Blood Pressure Position Sitting 02/20/24 21:14 Pulse Oximetry 100 02/20/24 21:14 Oxygen Delivery Method Room Air 02/20/24 21:14 Vital Signs Temperature 97.6 F 02/20/24 21:14 Pulse Rate 108 H 02/20/24 21:14 Respiratory Rate 16 02/20/24 21:14 Blood Pressure 106/74 02/20/24 21:14 Pulse Oximetry 100 02/20/24 21:14 Oxygen Delivery Method Room Air 02/20/24 21:14 Temperature 97.6 F 02/20/24 21:14 Pulse Rate 108 H 02/20/24 21:14 Respiratory Rate 16 02/20/24 21:14 Blood Pressure 106/74 02/20/24 21:14 Pulse Oximetry 100 02/20/24 21:14 Oxygen Delivery Method Room Air 02/20/24 21:14 Medications Administered Medications: Discontinued Medications Generic Name Dose Route Start Last Admin Trade Name Freq PRN Reason Stop Dose Admin Ceftriaxone Sodium 1 gm 02/20/24 21:32 02/20/24 21:40 Ceftriaxone 1 Gm Vial IM 02/20/24 21:33 1 gm ONCE ONE Administration Lidocaine HCl 2.1 ml 02/20/24 21:32 02/20/24 21:40 Lidocaine 1% 5 Ml (Pf) 5 Ml Vial IM 2.1 ml DIRECTED PRN Administration Pain Medical Decision Making MDM Narrative Medical decision making narrative: Discussed with the patient, this is evidence of a tooth issue, I do not see any thing severe tonight, with her otherwise normal vital signs. We will give her shot of Rocephin will give her some Zofran for her nausea, she will endeavor to take her amoxicillin follow-up with dentistry a suggest tomorrow, and call her transplant team. Return here if further worsening, Discharge Plan Discharge Clinical Impression: Tooth pain Patient Disposition: Home w/ Parent or Adult Condition: Stable Instructions: Toothache (ED) Additional Instructions: Home rest take medications as directed, the nausea medication can make you constipated, IV a small supply of pain medications. Please try to take her amoxicillin with a nausea medications, and also call tomorrow to be seen by Dentistry, and also I would call the transplant team also to inform them. Increasing swelling fevers and chills need to get him back, and be seen. We do not have Oral surgery at this hospital, so process perhaps a bigger hospital such as [facility] would be a better option. Prescriptions: No Action levonorgestrel 20 mcg/24 hours (7 yrs) 52 mg intrauterine device 1 device intrauterine ONCE folic acid 1 mg tablet 1 mg PO QDAY Patient Comments: TAKE 1 TABLET BY MOUTH DAILY ergocalciferol (vitamin D2) 1,250 mcg (50,000 unit) capsule 50,000 unit PO QWEEK Patient Comments: TAKE 1 CAPSULE BY MOUTH ONCE A WEEK magnesium oxide 400 mg magnesium capsule 400 mg PO BID promethazine 25 mg tablet 25 mg PO Q6H PRN ropinirole 2 mg tablet 2 mg PO QHS diazepam 5 mg tablet 5 mg PO HS mycophenolate mofetil 500 mg tablet 1,000 mg PO BID tacrolimus 1 mg capsule PO tacrolimus 0.5 mg capsule 0.5 mg PO BID furosemide 20 mg tablet 40 mg PO QAM ondansetron 8 mg tablet,disintegrating 8 mg PO TID PRN thiamine HCl (vitamin B1) 100 mg tablet 100 mg PO QDAY Hold Instructions: Order Change Patient Comments: TAKE 1 TABLET BY MOUTH DAILY pantoprazole 40 mg tablet,delayed release (DR/EC) 40 mg PO QDAY Qty: 30 5RF Patient Comments: TAKE 1 TABLET BY MOUTH DAILY Xifaxan 550 mg tablet 550 mg PO BID Qty: 60 5RF Patient Comments: TAKE 1 TABLET BY MOUTH TWICE DAILY vitamin A 10,000 unit capsule 10,000 unit PO .COMPLEX Qty: 40 3RF Rx Instructions: 10,000 units PO 3 times a week; magnesium oxide 400 mg magnesium capsule 400 mg PO BID Qty: 180 3RF zinc sulfate 50 mg zinc (220 mg) capsule 50 mg PO QDAY Qty: 90 3RF cyclobenzaprine 5 mg tablet 5 mg PO QDAY PRN (Reason: muscle spasm) Qty: 15 0RF lactulose 10 gram/15 mL solution 20 g PO TID Qty: 946 0RF spironolactone 50 mg tablet 50 mg PO QDAY Qty: 30 0RF lidocaine 5 % adhesive patch,medicated 1 patch topical QDAY Qty: 30 0RF Rx Instructions: leave on most painful area for up to 12 hrs diclofenac sodium [Voltaren Arthritis Pain] 1 % gel 2 g topical QID Qty: 100 0RF Rx Instructions: apply to single elbow, wrist or hand; for hand includes palm/fingers/back of hand cholecalciferol (vitamin D3) 10 mcg (400 unit) capsule 10 mcg PO QDAY Qty: 30 0RF acetaminophen [Tylenol Extra Strength] 500 mg tablet 500 mg PO Q6H PRN (Reason: pain) Qty: 60 0RF spironolactone 100 mg tablet 100 mg PO QDAY Follow Up/Referrals: Ana Red PA-C [Primary Care Provider] - Stand Alone Forms: MyHealth Info Instructions
== END 2024-02-20 21:45 | disposition home or self-care (01) ==
LOC: ED 21:39
PROVIDERS: Emergency Provider Family Medicine; PCP Internal Medicine
DX: K08.89 Other specified disorders of teeth and supporting structures (principal)
CPT/HCPCS: 96372; 99283; 99284; J0696

== ENCOUNTER 2024-09-14 00:52 | Emergency (ER) | payer BC, SELFPAY ==
[2024-09-14 00:54] VITALS: BP 138/95; PULSE 100; RESP 18; TEMP 36.8; O2SAT 99; BMI 23.2
[2024-09-14 01:00] LABS: Appearance Urine Clear (Clear); Bilirubin Urine Negative (Negative); Blood Urine Negative (Negative); Color Urine Yellow (Yellow); Glucose Urine 3+ (Negative); Ketones Urine 2+ (Negative); Leukocyte Esterase Urine Negative (Negative); Nitrite Urine Negative (Negative); Protein Urine Negative (Negative); Urobilinogen Urine 0.2 (0.2-1.0); pH Urine 6.5 (5.0-8.5)
[2024-09-14 01:07] LABS: RBC Urine 0-2 (0-2); WBC Urine 0-2 (0-5)
[2024-09-14] MEDS: HYDROmorphone 0.5 mg/0.5 ml inj 2 MG IVP (01:24)
--- OUTSIDE RECORDS SUMMARY | 2024-09-14 01:27 | XMS_ITS | Encounter Summary ---
Author Organization [facility] Address [address] [place] [id number] Care Team Providers Care Law Firm Consultant Name Role Phone Ana Red P.A.-C. Primary Care Pro vider Reason for Visit * Reason Onset Date Comments Rx Denial 07/06/2024 Tresiba FlexTouc h 100 Units/mL Encounter Details Date Type Department Care Team (Latest Contact Info) Description 07/06/2024 Clinical Communication Department of Hospital Internal Medicine in [place], [place] [address] [place] [phone] Priscilla Love APRN, C.N.P., M.S.N. [address] [place] [phone] Rx Denial (Tresiba FlexTouch 100 Units/mL ) Social History Tobacco Use Types Packs/Day Years Used Date Smoking Tobacco: Former Cigarettes 1 - 10/12/2021 Passive Smoke Exposure: Never Smokeless Tobacco: Never Comments:No longer smoke Alcohol Use Standard Drinks/Week Comments Never 0 (1 standard drink = 0.6 oz pure alcohol) Havent had any alcohol in about a year or so. [facility] Utilities Answer Date Recorded In the past 12 months has [employer], gas, oil, or water dentalDoctors threatened to shut off services in your home? No 07/25/2024 Humiliation, Afraid, Rape, and Kick questionnair e Answer Date Recorded Within the last year, have y ou been afraid of your partner or ex-partner? No 07/25/2024 Within the last year, have y ou been humiliated or emotionally abused in other ways by your partner or ex-partner? No Within the last year, have y ou been kicked, hit, slapped, or otherwise physically hurt by your partner or ex-partner? No 07/25/2024 Within the last year, have y ou been raped or forced to have any kind of sexual activity by your partner or ex-partner? No 07/25/2024 Social Connection and Isolat ion Panel [NHANES] Answer Date Recorded In a typical week, how many times do you talk on the phone with family, friends, or neighbors? More than three times a week 02/10/2022 How often do you get togethe r with friends or relatives? Once a week 02/10/2022 How often do you attend [facility] or baptist services? Patient declined 02/10/2022 Do you belong to any clubs o r organizations such as jehovah's witness groups, unions, [...] PHQ-2 Answer Date Recorded PHQ-2 Score 0 05/25/2024 [facility] [place] of Occupat ional Health - Occupational Stress [...] the money to buy more. Never true 07/26/19 Within the past 12 months, t he food you bought just didn't last and you didn't have money to get more. Never true 07/25/2024 PRAPARE - Transportation Answer Date Re corded In the past 12 months, has l ack of transportation kept you from medical appointments or from getting medications? No 07/02 In the past 12 months, has l ack of transportation kept you from meetings, work, or from getting things needed for daily living? No 07/25/2024 Depression Answer Date Recor ded PHQ-9 Total [...] your living situation today? I have a [facility] place to live 07/25/2024 Education Answer Date Recorded What is the highest level of school you have completed or the highest degree you have received? Associate degree: occupational, technical, or vocational program 07/16/2021 Comments No Sex and Gender Information Value Date Recorded Sex Assigned at Female 04/12/2021 7:39 PM SUBSTATION OPERATOR HELPER Legal Sex Female 7:53 PM SUBSTATION OPERATOR HELPER Gender Identity Female 04/12/2021 7:39 PM SUBSTATION OPERATOR HELPER Sexual Orientation Straight 04/12/2021 7: 39 PM SUBSTATION OPERATOR HELPER documented as of this encounter Plan of Treatment Upcoming Encounters Date Type Department Care Team (Latest Contact Info) Description 09/14/2024 11:00 AM CDT Appointment Department of Radiology, [facility], in [place], [place] [address] [place] [address] Noreen Ansari P.A.-C., M.S. [address] [place] [phone] Jesus Figueroa M.D. [address] [place] [phone] 09/14/2024 4:00 PM CDT Telemedicine Division of Pulmonary Medicine in [place], [place] [address] [place] [address] Ben Dickson APRN, C.N.P. [address] [place] [phone] 09/15/2024 8:00 AM CDT Lab Department of Laboratory Medicine and Pathology, [facility] in [place], [place] [address] [place] [address] Edgar Montgomery M.B.B.S., M.S. [address] [place] [phone] 09/15/2024 10:00 AM CDT [facility] in [place], [place] [address] [place] [address] Edgar Montgomery M.B.B.S., M.S. [address] [place] [phone] Miriam Strickland M.D. [address] [place] [phone] 09/15/2024 11:00 AM CDT Office Visit Ramirez diaz [facility] for Transplantation and Clinical Regeneration in [place], [place] [address] [place] [phone] Edgar Montgomery M.B.B.S., M.S. [address] [place] [phone] Discharge Disposition: Home or Self Care 09/15/2024 1:45 PM CDT Infusion Department of Infusion Therapy in [place], [place] [address] [place] [address] Juan Pete M.D. [address] [place] [phone] 09/18/2024 2:15 PM CDT Hospital Encounter Department of Radiology, [facility] in [place], [place] [address] [place] [address] Edgar Montgomery M.B.B.S., M.S. [address] [place] [phone] 09/20/2024 3:00 PM CDT Comprehensive Visit [facility] [place] for Transplantation and Clinical Regeneration in [place], [place] [address] [place] [address] Catia Quintana APRN, C.N.P. [address] [place] [phone] 10/03/2024 9:00 AM CDT Appointment Department of Radiology, [facility] in [place], [place] [address] [place] [address] Marisabel Carpenter APRN, C.N.P., D.N.P. [address] [place] [phone] 10/05/2024 12:00 PM CDT Appointment Division of Pulmonary Medicine in [place], [place] [address] [place] [address] Edgar Montgomery M.B.B.S., M.S. [address] [place] [phone] 10/10/2024 7:50 AM CDT Lab Department of Laboratory Medicine and Pathology, [facility] in [place], [place] [address] [place] [address] Marisabel Carpenter APRN, C.N.P., D.N.P. [address] [place] [phone] 10/10/2024 8:00 AM CDT Lab Department of Laboratory Medicine and Pathology, [place], [place] [address] [place] [address] Marisabel Carpenter APRN, C.N.PSuma, D.N.P. [address] [place] [phone] 10/10/2024 8:30 AM CDT Nurse Only Ramirez Nguyen [place] for Transplantation and Clinical Regeneration in [place], [place] [address] [place] [phone] Marisabel Carpenter APRN, C.N.PSuma, D.N.P. [address] [place] [phone] 10/10/2024 9:20 AM CDT Appointment Department of Radiology, [facility] in [place], [place] [address] [place] [address] Marisabel Carpenter APRN, C.N.P., D.N.P. [address] [place] [phone] 10/10/2024 9:45 AM CDT Appointment Department [place] [address] [place] [address] Marisabel Carpenter APRN, Katrin.N.PSuma, D.N.P. [address] [place] [phone] 10/10/2024 1:30 PM CDT Appointment Department of Radiology, [facility] in [place], [place] [address] [place] [address] Marisabel Carpenter APRN, C.N.PSuma, D.N.P. [address] [place] [phone] 10/10/2024 2:45 PM CDT Appointment Department of Radiology, [facility] in [place], [place] [address] [place] [address] Marisabel Carpenter APRN, C.N.PSuma, D.N.P. [address] [place] [phone] 10/11/2024 8:00 AM CDT [facility] in [place], [place] [address] [place] [address] Marisabel Carpenter APRN, C.N.PSuma, D.N.P. [address] [place] [phone] 10/11/2024 11:00 AM CDT Comprehensive Visit [facility] [place] for Transplantation and Clinical Regeneration in [place], [place] [address] [place] [phone] Sree Devlin M.D. [address] [place] [phone] 10/11/2024 1:00 PM CDT Comprehensive Visit Department of Otorhinolaryngology in [place], [place] [address] [place] [phone] Randal Urbano P.A.-C., M.S. [address] [place] [phone] 10/11/2024 2:00 PM CDT Office Visit [facility] [place] for Transplantation and Clinical Regeneration in [place], [place] [address] [place] [phone] Hiro Murillo P.A.-C. [address] [place] [phone] 10/11/2024 4:00 PM CDT Comprehensive Visit Department of Dermatology in [place], [place] [address] [place] [phone] Parul Martinez M.D. [address] [place] [phone] 10/12/2024 8:00 AM CDT Telemedicine [facility] Transplantation and Clinical Regeneration in [place], [place] [address] [place] [phone] Ervin Mckeon D.O. [address] [place] [phone] 11/01/2024 2:15 PM CDT Appointment Division of Pulmonary Medicine in [place], [place] [address] [place] [phone] Edgar Montgomery M.B.B.S., M.S. [address] [place] [phone] documented as of this encounter Visit Diagnoses Not on filedocumented in this encounter Additional Health Concerns Infection Onset Date Last Indicated Resolved Time Protective Environment 10/10/2022 10/10/2022 Assessment Noted Time PHQ-9 Depression Total Score: 4 06/18/19 24 12:20 PM SUBSTATION OPERATOR HELPER documented as of this encounter Care Teams Law Firm Consultant Relationship Specialty Start Date End Date Ana Red MPAS, P.A.-C. [address] [place] [address] [place] [phone] PCP - General Internal Medicine 12/01/21 [facility] 08/25/21 documented as of this encounter
--- OUTSIDE RECORDS SUMMARY | 2024-09-14 01:27 | XMS_ITS | Encounter Summary ---
Author Organization [facility] Address [address] [place] [address] Care Team Providers Care Housekeeper/Laundry Assistant Name Role Phone Ana Red P.A.-C. Primary Care Pro vider Reason for Visit * Reason Onset Date Comments Medication Problem 07/06/2024 Encounter Details Date Type Department Care Team (Latest Contact Info) Description 07/06/2024 Clinical Communication [facility] Mail [address] [place] [address] Ben Guerrero, Pharm.D., R.Ph. [address] [place] [phone] Medication Problem Social History Tobacco Use Types Packs/Day Years Used Date Smoking Tobacco: Former Cigarettes 1 - 10/12/2021 Passive Smoke Exposure: Never Smokeless Tobacco: Never Comments:No longer smoke Alcohol Use Standard Drinks/Week Comments Never 0 (1 standard drink = 0.6 oz pure alcohol) Havent had any alcohol in about a year or so. [facility] Utilities Answer Date Recorded In the past 12 months has e [employer], gas, oil, or water [employer] threatened to shut off services in your [...] How often do you attend chur or evangelical services? Patient declined 02/10/2022 Do you belong [...] Answer Date Recorded PHQ-2 Score 0 05/25/2024 [facility] [place] of Occupat ional Health - Occupational Stress [...] situation today? I have a [facility] place to live 07/25/2024 Education Answer Date Recorded What is the highest level of school you have completed or the highest degree you have received? Associate degree: occupational, technical, or vocational program 07/16/2021 Comments No Sex and Gender Information Value Date Recorded Sex Assigned at Female 04/12/2021 7:39 PM DINKEY DISPATCHER Legal Sex Female 7:53 PM DINKEY DISPATCHER Gender Identity Female 04/12/2021 7:39 PM DINKEY DISPATCHER Sexual Orientation Straight 04/12/2021 7: 39 PM DINKEY DISPATCHER documented as of this encounter Plan of Treatment Upcoming Encounters Date Type Department Care Team (Latest Contact Info) Description 09/14/2024 11:00 AM CDT Appointment Department of Radiology, [facility], in [place], [place] [address] [place] [address] Noreen Ansari P.A.-C., M.S. [address] [place] [phone] Jesus Figueroa M.D. [address] [place] [phone] 09/14/2024 4:00 PM CDT Telemedicine Division of Pulmonary Medicine in [place], [place] [address] [place] [phone] Ben Dickson APRN, C.N.P. [address] [place] [phone] 09/15/2024 8:00 AM CDT Lab Department of Laboratory Medicine and Pathology, [facility] in [place], [place] [address] [place] [phone] Edgar Montgomery M.B.B.S., M.S. [address] [place] [phone] 09/15/2024 10:00 AM CDT Comprehensive Visit [facility] for Transplantation and Clinical Regeneration in [place], [place] [address] [place] [phone] Edgar Montgomery M.B.B.S., M.S. [address] [place] [phone] Miriam Strickland M.D. [address] [place] [phone] 09/15/2024 11:00 AM CDT Office Visit [facility] for Transplantation and Clinical Regeneration in [place], [place] [address] [place] [address] Edgar Montgomery M.B.B.S., M.S. [address] [place] [phone] Discharge Disposition: Home or Self Care 09/15/2024 1:45 PM CDT Infusion Department of Infusion Therapy in [place], [place] [address] [place] [address] Juan Pete M.D. [address] [place] [phone] 09/18/2024 2:15 PM CDT Hospital Encounter Department of Radiology, [facility] in [place], [place] [address] [place] [address] Edgar Montgomery M.B.B.S., M.S. [address] [place] [phone] 09/20/2024 3:00 PM CDT Comprehensive Visit [facility] for Transplantation and Clinical Regeneration in [place], [place] [address] [place] [phone] Catia Quintana APRN, C.N.P. [address] [place] [phone] 10/03/2024 9:00 AM CDT Appointment Department of Radiology, [facility], in [place], [place] [address] [place] [address] Marisabel Carpenter APRN, C.N.P., D.N.P. [address] [place] [phone] 10/05/2024 12:00 PM CDT Appointment Division of Pulmonary Medicine in [place], [place] [address] [place] [phone] Edgar Montgomery M.B.B.S., M.S. [address] [place] [phone] 10/10/2024 7:50 AM CDT Lab Department of Laboratory Medicine and Pathology, [facility] in [place], [place] [address] [place] [address] Marisabel Carpenter APRN, C.N.P., D.N.P. [address] [place] [phone] 10/10/2024 8:00 AM CDT Lab Department of Laboratory Medicine and Pathology, [facility] in [place], [place] [address] [place] [address] Marisabel Carpenter APRN, C.N.P., D.N.P. [address] [place] [phone] 10/10/2024 8:30 AM CDT Nurse Only [facility] in [place], [place] [address] [place] [address] Marisabel Carpenter APRN, C.N.P., D.N.P. [address] [place] [phone] 10/10/2024 9:20 AM CDT Appointment Department of Radiology, [facility] in [place], [place] [address] [place] [address] Marisabel Carpenter APRN, C.N.P., D.N.P. [address] [place] [phone] 10/10/2024 9:45 AM CDT Appointment Department of Laboratory Medicine and Pathology, [facility] in [place], [place] [address] [place] [address] Marisabel Carpenter APRN, C.N.P., D.N.P. [address] [place] [phone] 10/10/2024 1:30 PM CDT Appointment Department of Radiology, [facility] in [place], [place] [address] [place] [address] Marisabel Carpenter APRN, C.N.PSuma, D.N.P. [address] [place] [phone] 10/10/2024 2:45 PM CDT Appointment Department of Radiology, [facility], in [place], [place] [address] [place] [address] Marisabel Carpenter APRN, C.N.Frances, D.N.P. [address] [place] [phone] 10/11/2024 8:00 AM CDT Office Visit [facility] for Transplantation and Clinical Regeneration in [place], [place] [address] [place] [address] Marisabel Carpenter APRN, Katrin.N.PSuma, D.N.P. [address] [place] [phone] 10/11/2024 11:00 AM CDT Comprehensive Visit [facility] for Transplantation and Clinical Regeneration in [place], [place] [address] [place] [address] Sree Devlin M.D. [address] [place] [phone] 10/11/2024 1:00 PM CDT Comprehensive Visit Department of Otorhinolaryngology in [place], [place] [address] [place] [address] Randal Urbano PDeneen.-C., M.S. [address] [place] [phone] 10/11/2024 2:00 PM CDT Office Visit [facility] for Transplantation and Clinical Regeneration in [place], [place] [address] [place] [phone] Hiro Murillo P.A.-C. [address] [place] [phone] 10/11/2024 4:00 PM CDT Comprehensive Visit Department of Dermatology in [place], [place] [address] [place] [phone] Parul Martinez M.D. [address] [place] [phone] 10/12/2024 8:00 AM CDT Telemedicine [facility] Transplantation and Clinical Regeneration in [place], [place] [address] [place] [phone] Ervin Mckeon D.O. [address] [place] [phone] 11/01/2024 2:15 PM CDT Appointment Division of Pulmonary Medicine in [place], [place] [address] [place] [phone] Edgar Montgomery M.B.B.S., M.S. [address] [place] [phone] documented as of this encounter Visit Diagnoses Not on filedocumented in this encounter Additional Health Concerns Infection Onset Date Last Indicated Resolved Time Protective Environment 10/10/2022 10/10/2022 Assessment Noted Time PHQ-9 Depression Total Score: 4 06/18/19 24 12:20 PM DINKEY DISPATCHER documented as of this encounter Care Teams Housekeeper/Laundry Assistant Relationship Specialty Start Date End Date Ana Red MPAS, P.A.-C. [address] [place] [address] ADI Chua [phone] PCP - General Internal Medicine 12/01/21 [facility] 08/25/21 documented as of this encounter
--- OUTSIDE RECORDS SUMMARY | 2024-09-14 01:27 | XMS_ITS | Encounter Summary ---
Author Organization [facility] Address [address] [place] [address] Care Team Providers Care Direct Marketing Executive Name Role Phone Ana Red P.A.-C. Primary Care Pro vider Reason for Visit * Reason Onset Date Comments Rx Approval 07/11/2024 Tresiba Flextouc h 100 unit/ml Encounter Details Date Type Department Care Team (Latest Contact Info) Description 07/11/2024 Clinical Communication Pharmacy Prior Auth RO [phone] Virginia Byers Rx Approval (Tresiba Flextouch 100 unit/ml) Social History Tobacco Use Types Packs/Day Years Used Date Smoking Tobacco: Former Cigarettes 1 - 10/12/2021 Passive Smoke Exposure: Never Smokeless Tobacco: Never Comments:No longer smoke Alcohol Use Standard Drinks/Week Comments Never 0 (1 standard drink = 0.6 oz pure alcohol) Havent had any alcohol in about a year or so. [facility] Utilities Answer Date Recorded In the past 12 months has e [employer], gas, oil, or water [employer] threatened to shut off services in your [...] week 02/10/2022 How often do you attend [facility] or sabianism services? Patient declined 02/10/2022 Do you belong to any clubs o r organizations such as episcopal groups, unions, fraternal [...] Answer Date Recorded PHQ-2 Score 0 08/11/2024 [facility] - [...] money to buy more. Never true 07/26/19 25 Within the past 12 months, t [...] your living situation today? I have a [facility] place to live 07/25/2024 Education Answer Date Recorded What is the highest level of school you have completed or the highest degree you have received? Associate degree: occupational, technical, or vocational program 07/16/2021 Comments No Sex and Gender Information Value Date Recorded Sex Assigned at Female 04/12/2021 7:39 PM OPERATING ROOM TECH Legal Sex Female 7:53 PM OPERATING ROOM TECH Gender Identity Female 04/12/2021 7:39 PM OPERATING ROOM TECH Sexual Orientation Straight 04/12/2021 7: 39 PM OPERATING ROOM TECH documented as of this encounter Miscellaneous Notes * Telephone Encounter - Virginia Byers - 07/11/2024 2:42 PM CDT Pharmaceutical prior authorization has been approved for Tresiba Flextouch 100 unit/ml.. If you have any follow-up questions, please send an [employer] message to [facility] POOL. documented in this encounter Plan of Treatment Upcoming Encounters Date Type Department Care Team (Latest Contact Info) Description 09/14/2024 11:00 AM CDT Appointment Department of Radiology, [facility], in [place], [place] [address] [place] [address] Noreen Ansari P.A.-C., M.S. [address] [place] [phone] Jesus Figueroa M.D. [address] [place] [phone] 09/14/2024 4:00 PM CDT Telemedicine Division of Pulmonary Medicine in [place], [place] [address] [place] [address] Ben Dickson, YARITZA, C.N.P. [address] [place] [phone] 09/15/2024 8:00 AM CDT Lab Department of Laboratory Medicine and Pathology, [facility], in [place], [place] [address] [place] [address] Edgar Montgomery M.B.B.S., M.S. [address] [place] [phone] 09/15/2024 10:00 AM CDT [facility] in [place], [place] [address] [place] [address] Edgar Montgomery M.B.B.S., M.S. [address] [place] [phone] Miriam Strickland M.D. [address] [place] [phone] 09/15/2024 11:00 AM CDT Office Visit [facility] for Transplantation and Clinical Regeneration in [place], [place] [address] [place] [address] Edgar Montgomery M.B.B.S., M.S. [address] [place] [phone] Discharge Disposition: Home or Self Care 09/15/2024 1:45 PM CDT Infusion Department of Infusion Therapy in [place], [place] [address] [place] [address] Juan Pete M.D. [address] [place] [phone] 09/18/2024 2:15 PM CDT Hospital Encounter Department of Radiology, [facility] in [place], [place] [address] [place] [phone] Edgar Montgomery M.B.B.S., M.S. [address] [place] [phone] 09/20/2024 3:00 PM CDT Comprehensive Visit [facility] for Transplantation and Clinical Regeneration in [place], [place] [address] [place] [phone] Catia Quintana APRN, C.N.P. [address] [place] [phone] 10/03/2024 9:00 AM CDT Appointment [place], [place] [address] [place] [address] Marisabel Carpenter APRN, C.N.P., D.N.P. [address] [place] [phone] 10/05/2024 12:00 PM CDT Appointment Division of Pulmonary Medicine in [place], [place] [address] [place] [phone] Edgar Montgomery M.B.B.S., M.S. [address] [place] [phone] 10/10/2024 7:50 AM CDT Lab Department of Laboratory Medicine and Pathology, [place], [place] [address] [place] [address] Marisabel Carpenter APRN, C.N.P., D.N.P. [address] [place] [phone] 10/10/2024 8:00 AM CDT Lab Department of Laboratory Medicine and Pathology, [facility] in [place], [place] [address] [place] [address] Marisabel Carpenter APRN, C.N.P., D.N.P. [address] [place] [phone] 10/10/2024 8:30 AM CDT Nurse Only Ramirez diaz [facility] for Transplantation and Clinical Regeneration in [place], [place] [address] [place] [address] Marisabel Carpenter APRN, C.N.P., D.N.P. [address] [place] [phone] 10/10/2024 9:20 AM CDT Appointment Department of Radiology, [place], [place] [address] [place] [address] Marisabel Carpenter APRN, C.N.P., D.N.P. [address] [place], [place] [phone] 10/10/2024 9:45 AM CDT Appointment Department of Laboratory Medicine and Pathology, [facility] in [place], [place] [address] [place] [address] Marisabel Carpenter APRN, C.N.P., D.N.P. [address] [place] [phone] 10/10/2024 1:30 PM CDT Appointment Department of Radiology, [facility] in [place], [place] [address] [place] [address] Marisabel Carpenter APRN, C.N.P., D.N.P. [address] [place] [phone] 10/10/2024 2:45 PM CDT Appointment Department of Radiology, [facility] in [place], [place] [address] [place] [address] Marisabel Carpenter APRN, C.N.P., D.N.P. [address] [place] [phone] 10/11/2024 8:00 AM CDT Office Visit Ramirez diaz [facility] for Transplantation and Clinical Regeneration in [place], [place] [address] [place] [address] Marisabel Carpenter APRN, C.N.P., D.N.P. [address] [place] [phone] 10/11/2024 11:00 AM CDT Comprehensive Visit Ramirez Llanes emily [facility] for Transplantation and Clinical Regeneration in [place], [place] [address] [place] [address] Sree Devlin M.D. [address] [place] [phone] 10/11/2024 1:00 PM CDT Comprehensive Visit Department of Otorhinolaryngology in [place], [place] [address] [place], [place] [phone] Randal Urbano P.A.-C., M.S. [address] [place] [phone] 10/11/2024 2:00 PM CDT Office Visit [facility] for Transplantation and Clinical Regeneration in [place], [place] [address] [place] [phone] Hiro Murillo P.A.-C. [address] [place] [phone] 10/11/2024 4:00 PM CDT Comprehensive Visit Department of Dermatology in [place], [place] [address] [place] [phone] Parul Martinez M.D. [address] [place] [phone] 10/12/2024 8:00 AM CDT Telemedicine [facility] Transplantation and Clinical Regeneration in [place], [place] [address] [place] [phone] Ervin Mckeon D.O. [address] [place] [phone] 11/01/2024 2:15 PM CDT Appointment Division of Pulmonary Medicine in [address] [phone] Edgar Montgomery M.B.B.S., M.S. [address] [place] [phone] documented as of this encounter Visit Diagnoses Not on filedocumented in this encounter Additional Health Concerns Infection Onset Date Last Indicated Resolved Time Protective Environment 10/10/2022 10/10/2022 Assessment Noted Time PHQ-9 Depression Total Score: 4 06/18/19 24 12:20 PM OPERATING ROOM TECH documented as of this encounter Care Teams Direct Marketing Executive Relationship Specialty Start Date End Date Ana Red MPAS, P.A.-C. [address] [facility] [place] [phone] PCP - General Internal Medicine 12/01/21 [facility] [place] [facility] 08/25/21 documented as of this encounter
--- OUTSIDE RECORDS SUMMARY | 2024-09-14 01:27 | XMS_ITS | Encounter Summary ---
Author Organization [facility] Address [address] [place] [address] Care Team Providers Care Core Machine Operator Name Role Phone Ana Red P.A.-C. Primary Care Pro vider Encounter Details Date Type Department Care Team (Latest Contact Info) Description 07/03/2024 Clinical Communication Ramirez Navarrete [facility] for Transplantation and Clinical Regeneration in [place], [place] [address] [place] [phone] August, Sony Mendez R.N. [address] [place] [phone] Social History Tobacco Use Types Packs/Day Years Used Date Smoking Tobacco: Former Cigarettes 1 - 10/12/2021 Passive Smoke Exposure: Never Smokeless Tobacco: Never Comments:No longer smoke Alcohol Use Standard Drinks/Week Comments Never 0 (1 standard drink = 0.6 oz pure alcohol) Havent had any alcohol in about a year or so. [facility] Utilities Answer Date Recorded In the past 12 months has [employer], gas, oil, or water company threatened [...] any clubs o r organizations such as mormon groups, unions, fraternal [...] Answer Date Recorded PHQ-2 Score 0 05/25/2024 [facility] [...] your living situation today? I have a [facility] place to live 07/25/2024 Education Answer Date Recorded What is the highest level of school you have completed or the highest degree you have received? Associate degree: occupational, technical, or vocational program 07/16/2021 Comments No Sex and Gender Information Value Date Recorded Sex Assigned at Female 04/12/2021 7:39 PM KISS MACHINE OPERATOR Legal Sex Female 7:53 PM KISS MACHINE OPERATOR Gender Identity Female 04/12/2021 7:39 PM KISS MACHINE OPERATOR Sexual Orientation Straight 04/12/2021 7: 39 PM KISS MACHINE OPERATOR documented as of this encounter Plan of Treatment Upcoming Encounters Date Type Department Care Team (Latest Contact Info) Description 09/14/2024 11:00 AM CDT Appointment Department of Radiology, [facility], in [place], [place] 200 [place] [address] Noreen Ansari P.A.-C., M.S. [address] [place] [address] Jesus Figueroa M.D. [address] [place] [phone] 09/14/2024 4:00 PM CDT Telemedicine Division of Pulmonary Medicine in [place], [place] [address] [place] [address] Ben Dickson APRN, C.N.P. [address] [place] [phone] 09/15/2024 8:00 AM CDT Lab Department of Laboratory Medicine and Pathology, [facility] in [place], [place] [address] [place], [place] [phone] Edgar Montgomery M.B.B.S., M.S. [address] [place] [phone] 09/15/2024 10:00 AM CDT Comprehensive Visit [facility] for Transplantation and Clinical Regeneration in [place], [place] [address] [place] [phone] Edgar Montgomery M.B.B.S., M.S. [address] [place] [phone] Miriam Strickland M.D. [address] [place] [phone] 09/15/2024 11:00 AM CDT Office Visit [facility] for Transplantation and Clinical Regeneration in [place], [place] [address] [place] [phone] Edgar Montgomery M.B.B.S., M.S. [address] [place] [phone] Discharge Disposition: Home or Self Care 09/15/2024 1:45 PM CDT Infusion Department of Infusion Therapy in [place], [place] [address] [place] [address] Juan Pete M.D. [address] [place] [phone] 09/18/2024 2:15 PM CDT Hospital Encounter Department of Radiology, [facility] in [place], [place] [address] [place] [phone] Edgar Montgomery M.B.B.S., M.S. [address] [place] [phone] 09/20/2024 3:00 PM CDT Comprehensive Visit [facility] for Transplantation and Clinical Regeneration in [place], [place] [address] [place] [phone] Catia Quintana APRN, C.N.P. [address] [place] [phone] 10/03/2024 9:00 AM CDT Appointment Department of Radiology, [facility] in [place], [place] [address] [place] [address] Marisabel Carpenter APRN, C.N.P., D.N.P. [address] [place] [phone] 10/05/2024 12:00 PM CDT Appointment Division of Pulmonary Medicine in [place], [place] [address] [place] [phone] Edgar Montgomery M.B.B.S., M.S. [address] [place] [phone] 10/10/2024 7:50 AM CDT Lab Department of Laboratory Medicine and Pathology, [facility] in [place], [place] [address] [place] [address] Marisabel Carpenter APRN, C.N.PSuma, D.N.P. [address] [place] [phone] 10/10/2024 8:00 AM CDT Lab Department of Laboratory Medicine and Pathology, [facility] in [place], [place] [address] [place] [address] Marisabel Carpenter APRN, C.N.PSuma, D.N.P. [address] [place] [phone] 10/10/2024 8:30 AM CDT Nurse Only [facility] in [place], [place] [address] [place] [address] Marisabel Carpenter APRN, C.N.PSuma, D.N.P. [address] [place] [phone] 10/10/2024 9:20 AM CDT Appointment Department of Radiology, [facility] in [place], [place] [address] [place] [address] Marisabel Carpenter APRN, C.N.P., D.N.P. [address] [place] [phone] 10/10/2024 9:45 AM CDT Appointment Department of Laboratory Medicine and Pathology, [facility] in [place], [place] [address] [place] [address] Marisabel Carpenter APRN, Katrin.N.PSuma, D.N.P. [address] [place] [phone] 10/10/2024 1:30 PM CDT Appointment Department of Radiology, [facility], in [place], [place] [address] [place] [address] Marisabel Carpenter APRN C.N.PSuma, D.N.P. [address] [place] [phone] 10/10/2024 2:45 PM CDT Appointment Department of Radiology, [facility], in [place], [place] [address] [place] [address] Marisabel Carpenter APRN, C.N.PSuma, D.N.P. [address] [place] [phone] 10/11/2024 8:00 AM CDT Office Visit [facility] for Transplantation and Clinical Regeneration in [place], [place] [address] [place] [address] Marisabel Carpenter APRN, C.N.P., D.N.P. [address] [place] [phone] 10/11/2024 11:00 AM CDT Comprehensive Visit [facility] for Transplantation and Clinical Regeneration in [place], [place] [address] [place] [phone] Sree Devlin M.D. [address] [place] [phone] 10/11/2024 1:00 PM CDT Comprehensive Visit Department of Otorhinolaryngology in [place], [place] [address] [place] [phone] Randal Urbano P.A.-C., M.S. [address] [place] [phone] 10/11/2024 2:00 PM CDT Office Visit [facility] Transplantation and Clinical Regeneration in [place], [place] [address] [place] [phone] Hiro Murillo P.A.-C. [address] [place] [phone] 10/11/2024 4:00 PM CDT Comprehensive Visit Department of Dermatology in [place], [place] [address] [place] [phone] Parul Martinez M.D. [address] [place] [phone] 10/12/2024 8:00 AM CDT Telemedicine [facility] Transplantation and Clinical Regeneration in [place], [place] [address] [place] [phone] Ervin Mckeon D.O. [address] [place] [phone] 11/01/2024 2:15 PM CDT Appointment Division of Pulmonary Medicine in [place], [place] [address] [place] [phone] Edgar Montgomery M.B.B.S., M.S. [address] [place] [phone] documented as of this encounter Visit Diagnoses Not on filedocumented in this encounter Additional Health Concerns Infection Onset Date Last Indicated Resolved Time Protective Environment 10/10/2022 10/10/2022 Assessment Noted Time PHQ-9 Depression Total Score: 4 06/18/19 24 12:20 PM KISS MACHINE OPERATOR documented as of this encounter Care Teams Core Machine Operator Relationship Specialty Start Date End Date Ana Red MPAS, P.A.-C. [address] [place] [address] [place] [phone] PCP - General Internal Medicine 12/01/21 [facility] [place] [facility] 08/25/21 documented as of this encounter
--- OUTSIDE RECORDS SUMMARY | 2024-09-14 01:28 | XMS_ITS | Encounter Summary ---
Author Organization [facility] Address [address] [place] [address] Care Team Providers Care Sheriff Sergeant Name Role Phone Ana Red, P.A.-C. Primary Care Pro vider Reason for Visit * Reason Onset Date Comments Med Refill 07/27/2024 Encounter Details Date Type Department Care Team (Late st Contact Info) Description 07/27/2024 Refill Department of Community Internal Medicine in [place], [place] [address] [place] [phone] Ana Red MPAS, P.A.-C. [address] [place] [phone] Med Refill Social History Tobacco Use Types Packs/Day Years Used Date Smoking Tobacco: Former Cigarettes 1 - 10/12/2021 Passive Smoke Exposure: Never Smokeless Tobacco: Never Comments:No longer smoke Alcohol Use Standard Drinks/Week Comments Never 0 (1 standard drink = 0.6 oz pure alcohol) Havent had any alcohol in about a year or so. [facility] Utilities Answer Date Recorded In the past 12 months has [facility] electric, gas, oil, or water [employer] threatened to shut off services in your [...] Answer Date Recorded PHQ-2 Score 0 08/11/2024 [facility] [place] [facility] - Occupational Stress [...] your living situation today? I have a [facility] place to live 08/22/2024 Education Answer Date Recorded What is the highest level of school you have completed or the highest degree you have received? Associate degree: occupational, technical, or vocational program 07/16/2021 Comments No Sex and Gender Information Value Date Recorded Sex Assigned at Female 04/12/2021 7:39 PM FILM TESTS CHECKER Legal Sex Female 7:53 PM FILM TESTS CHECKER Gender Identity Female 04/12/2021 7:39 PM FILM TESTS CHECKER Sexual Orientation Straight 04/12/2021 7: 39 PM FILM TESTS CHECKER documented as of this encounter Plan of Treatment Upcoming Encounters Date Type Department Care Team (Latest Contact Info) Description 09/14/2024 11:00 AM CDT Appointment Department of Radiology, [facility], in [place], [place] [address] [place] [phone] Noreen Ansari P.A.-C., M.S. [address] [place] [address] Jesus Figueroa M.D. [address] [place] [phone] 09/14/2024 4:00 PM CDT Telemedicine Division of Pulmonary Medicine in [place], [place] [address] [place] [address] Ben Dickson APRN, C.N.P. [address] [place] [phone] 09/15/2024 8:00 AM CDT Lab Department of Laboratory Medicine and Pathology, [facility], in [place], [place] [address] [place] [address] Edgar Montgomery M.B.B.S., M.S. [address] [place] [phone] 09/15/2024 10:00 AM CDT Comprehensive Visit [facility] in [place], [place] [address] [place] [address] Edgar Montgomery M.B.B.S., M.S. [address] [place] [phone] Miriam Strickland M.D. [address] [place] [phone] 09/15/2024 11:00 AM CDT Office Visit [facility] in [place], [place] [address] [place] [address] Edgar Montgomery M.B.B.S., M.S. [address] [place] [phone] Discharge Disposition: Home or Self Care 09/15/2024 1:45 PM CDT Infusion Department of Infusion Therapy in [place], [place] [address] [place] [address] Juan Pete M.D. [address] [place] [phone] 09/18/2024 2:15 PM CDT Hospital Encounter Department of Radiology, [facility] in [place], [place] [address] [place] [address] Edgar Montgomery M.B.B.S., M.S. [address] [place] [phone] 09/20/2024 3:00 PM CDT Comprehensive Visit [facility] in [place], [place] [address] [place] [address] Catia Quintana APRN, C.N.P. [address] [place] [phone] 10/03/2024 9:00 AM CDT Appointment Department of Radiology, [facility] in [place], [place] [address] [place] [address] Marisabel Carpenter APRN, C.N.P., D.N.P. [address] [place] [phone] 10/05/2024 12:00 PM CDT Appointment Division of Pulmonary Medicine in [place], [place] [address] [place] [address] Edgar Montgomery M.B.B.S., M.S. [address] [place] [phone] 10/10/2024 7:50 AM CDT Lab Department of Laboratory Medicine and Pathology, [facility] in [place], [place] [address] [place] [address] Marisabel Carpenter APRN, C.N.P., D.N.P. [address] [place] [phone] 10/10/2024 8:00 AM CDT Lab Department of Laboratory Medicine and Pathology, [facility] in [place], [place] [address] [place] [address] Marisabel Carpenter APRN, C.N.P., D.N.P. [address] [place] [phone] 10/10/2024 8:30 AM CDT Nurse Only [facility] [place], [place] [address] [place] [address] Marisabel Carpenter APRN, C.N.P., D.N.P. [address] [place] [phone] 10/10/2024 9:20 AM CDT Appointment Department of Radiology, [facility] in [place], [place] [address] [place] [address] Marisabel Carpenter APRN, C.N.P., D.N.P. [address] [place] [phone] 10/10/2024 9:45 AM CDT Appointment Department of Laboratory Medicine and Pathology, [facility] in [place], [place] [address] [place] [address] Marisabel Carpenter APRN, C.N.PSuma, D.N.P. [address] [place] [address] 10/10/2024 1:30 PM CDT Appointment Department of Radiology, [facility] in [place], [place] [address] [place] [address] Marisabel Carpenter APRN, C.N.PSuma, D.N.P. [address] [place] [phone] 10/10/2024 2:45 PM CDT Appointment Department of Radiology, [facility] in [place], [place] [address] [place] [address] Marisabel Carpenter APRN, C.N.PSuma, D.N.P. [address] [place] [phone] 10/11/2024 8:00 AM CDT Office Visit [facility] in [place], [place] [address] [place] [address] Marisabel Carpenter APRN, C.N.PSuma, D.N.P. [address] [place] [phone] 10/11/2024 11:00 AM CDT Comprehensive Visit [facility] in [place], [place] [address] [place] [address] Sree Devlin M.D. [address] [place] [phone] 10/11/2024 1:00 PM CDT Comprehensive Visit Department of Otorhinolaryngology in [place], [place] [address] [place] [address] Randal Urbano P.A.-C., M.S. [address] [place] [address] 10/11/2024 2:00 PM CDT Office Visit [facility] in [place], [place] [address] [place] [address] Hiro Murillo P.A.-C. [address] [place] [phone] 10/11/2024 4:00 PM CDT Comprehensive Visit Department of Dermatology in [place], [place] [address] [place] [phone] Parul Martinez M.D. [address] [place] [phone] 10/12/2024 8:00 AM CDT Telemedicine [facility] in [place], [place] [address] [place] [address] Ervin Mckeon D.O. [address] [place] [phone] 11/01/2024 2:15 PM CDT Appointment Division of Pulmonary Medicine in [place], [place] [address] [place] [phone] Edgar Montgomery M.B.B.S., M.S. [address] [place] [phone] documented as of this encounter Visit Diagnoses Diagnosis Chronic Pain Syndrome documented in this encounter Additional Health Concerns Infection Onset Date Last Indicated Resolved Time Protective Environment 10/10/2022 10/10/2022 Assessment Noted Time PHQ-9 Depression Total Score: 4 06/18/19 24 12:20 PM FILM TESTS CHECKER documented as of this encounter Care Teams Sheriff Sergeant Relationship Specialty Start Date End Date Ana Red MPAS, P.A.-C. [address] [facility] [place] [phone] PCP - General Internal Medicine 12/01/21 [facility] 08/25/21 documented as of this encounter
--- OUTSIDE RECORDS SUMMARY | 2024-09-14 01:28 | XMS_ITS | Clinical Summary ---
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 Primary Care Pro vider Source Comments Patient records contain information from all sites at [facility]. For routine questions regarding patient records, call [phone] during business hours, M-F 8:00 AM - 5:00 PM Central Time. Record requests for emergency care only can be directed to [phone] at any time.[facility] Allergies Active Allergy Reactions Criticality Noted Date Comments Azithromycin Nausea And Vomiting, GI intolerance Low 05/07/2016 Nausea and vomiting Ketorolac GI intolerance 07/25/2024 Tramadol GI intolerance Low 03/14/2024 Nausea and vomiting Medications * This document contains information received from the source organization and may not represent a complete record from that organization. levonorgestreL (MIRENA) 21 mcg/24 hours (8 yrs) 52 mg IUD 1 Intra Uterine Device (1 each total) by intrauterine route continuously. Inserted 07/31/2022. 1 each 023 Active triamcinolone (Nasacort) 55 mcg/actuation nasal spray Administer 2 sprays into each nostril daily. 16.5 mL 11 024 Active teriparatide (Forteo) 20 mcg/dose (600mcg/2.4mL) injection Inject 0.08 mL (20 mcg total) under the skin daily. 2.4 mL 11 Active multivitamin tablet Take 1 tablet by mouth daily. 30 tablet 3 Active cholecalciferol (Vitamin D3) 50 mcg (2,000 Unit) tablet Take 1 tablet (50 mcg total) by mouth daily. 90 tablet 3 Active diclofenac sodium (Voltaren) 1 % gel Apply 2 g topically 4 (four) times a day. Apply to abdomen or other areas of pain. 200 g 3 Active meclizine (Antivert) 25 mg tablet Take 1 tablet (25 mg total) by mouth 3 (three) times a day as needed for dizziness. 42 tablet 1 Active mirtazapine (Remeron) 15 mg tabletIndication s:Transplant Liver (HCC),Anxiety Take 1 tablet (15 mg total) by mouth at bedtime. 90 tablet 3 2024 Active pantoprazole (Protonix) 40 mg EC tabletIndication s:Transplant Liver (HCC),Gastroesop hageal Reflux Disease Without Esophagitis Take 1 tablet (40 mg total) by mouth daily before morning meal. 90 tablet 3 Active acetaminophen (TylenoL 8 Hr) 650 mg ER tablet Take 1 tablet (650 mg total) by mouth 3 (three) times a day. Typically takes 1 tablet every day in the morning, and two additional doses as needed for pain 90 tablet 11 Active lidocaine 4 % adhesive patch,medicated Place 1 patch on the skin daily. Apply to painful areas. 30 patch 1 Active naloxone (Narcan) 4 mg/actuation nasal spray Administer 1 spray (4 mg total) into one nostril as needed for reversal. Repeat with second device in other nostril after 2-3 minutes if no or minimal response. 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 1 each 05/15/19 25 1:09 PM GRINDER AND HONER OPERATOR AUTOMATIC 025 Active blood glucose control high,low (Accu-Chek Guide L1-L2 Ctrl Shayna) solution Use as directed with diabetes glucose meter to ensure accurate blood glucose testing. 1 each 05/15/19 1:09 PM GRINDER AND HONER OPERATOR AUTOMATIC Active predniSONE (Deltasone) 5 mg tablet Take 1 tablet (5 mg total) by mouth daily. 90 tablet 06/27/19 5:33 PM GRINDER AND HONER OPERATOR AUTOMATIC 025 Active polyethylene glycol (Miralax) 17 gram powder packet Take 1 packet (17 g total) by mouth daily. Dissolve each 17 g dose in 240 mLs (8 ounces) of beverage. 30 packet Active sennosides-docus ate sodium (Senokot-S) 8.6-50 mg per tablet Take 1 tablet by mouth 2 (two) times a day as needed for constipation. 100 tablet 06/27/19 5:33 PM GRINDER AND HONER OPERATOR AUTOMATIC 025 Active pen needle, diabetic (BD Ultra-Fine Short Pen Needle) 31 gauge x 5/16 needle Use as needed for insulin and teriparatide injections. Daily teriparatide, 1-2 times daily long-acting insulin, and 3 times daily short-acting insulin. 200 each 2 08/11/19 4:35 PM CDT 025 Active blood sugar diagnostic strips Use to test blood sugar 2 time(s) per day. 100 test 1 07/05/19 1:55 PM GRINDER AND HONER OPERATOR AUTOMATIC 025 2025 Active lipase-protease- amylase (Creon) 12,000-38,000-60 [address] capsule Take 2 capsules (24,000 Units of lipase total) by mouth 3 (three) times a day with meals. 100 capsule 07/13/19 5:18 PM CDT 025 Active lancets Use 2 (two) times a day. Use as directed for diabetes testing. 100 each 1 07/05/19 1:55 PM GRINDER AND HONER OPERATOR AUTOMATIC 025 Active methocarbamoL (Robaxin) 750 mg tablet Take 1 tablet (750 mg total) by mouth 2 (two) times a day. 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 Change sensor every 15 days 6 each 3 20 25 12:32 PM CDT 025 Active traZODone (DesyreL) 50 mg tablet TAKE 1 TO 3 TABLETS(50 TO 150 MG) BY MOUTH AT BEDTIME NEEDED FOR SLEEP 180 tablet Active Additional Information Patient taking differently: 50 mg oral Bedtime PRN, sleep, TAKE 1 TO 3 TABLETS(50 TO 150 MG) BY MOUTH AT BEDTIME NEEDED FOR SLEEP, Reported on 09/06/2024 alcohol swabs (Alcohol Wipes) pads, medicated Use as needed with diabetic supplies 100 each 08/11/19 4:35 PM CDT 025 Active prochlorperazine (Compazine) 10 mg tablet Take 1 tablet (10 mg total) by mouth every 6 (six) hours as needed for nausea or vomiting. 30 tablet 09/01/19 9:26 AM CDT 025 Active cholestyramine (Questran) 4 gram packet Take 60 mL (1 packet total) by mouth 2 (two) times a day as needed (itching). Take 3 hours away from other medications 30 packet 025 Active insulin aspart U-100 (NovoLOG Flexpen U-100 Insulin) [...] after visit with PCP Wednesday 15 mL 09/10/19 12:32 PM CDT 025 Active insulin glargine 100 unit/mL (3 mL) pen Inject 8 Units under the skin 2 (two) times a day. 15 mL 025 Active ondansetron (Zofran) 8 mg tabletIndication s:Transplant Liver (HCC),Nausea,Med ication Therapy Chcf Not 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 Take 1 tablet (8 mg total) by mouth every 8 (eight) hours as needed for nausea or vomiting. Take a tablet 30 minutes before tacrolimus dose. 90 tablet 09/10/19 12:32 PM CDT 05/09/2 025 Active pregabalin (Lyrica) 75 mg capsule Take 1 capsule (75 mg total) by mouth 2 (two) times a day. 60 capsule 025 2024 Active valGANciclovir (Valcyte) 450 mg tabletIndication s:Prophylaxis, medical Take 2 tablets (900 mg total) by mouth daily with morning meal Indications: Prophylaxis, medical. 176 tablet 09/10/19 25 12:32 PM CDT 025 2024 Active pentamidine (Nebupent) 50 mg/mL inhalation solution Inhale 6 mL (300 mg total) every 28 (twenty-eight) days. These are scheduled for 10/05/2024 & 11/01/2024. Active HYDROmorphone (Dilaudid) 2 mg tabletIndication s:Acute Pain Take 1 tablet (2 mg total) by mouth every 6 (six) hours Indication: Acute Pain. 10 tablet Active tacrolimus (Prograf) 1 mg capsuleIndicatio ns:prevention of liver transplant rejection Take 4 capsules (4 mg total) by mouth 2 (two) times a day Indications: liver transplant rejection prevention. 720 capsule 3 025 2025 Active aspirin 81 mg chewable tablet Chew 1 tablet (81 mg total) daily. 90 tablet 3 024 2024 Discontinued(S top Taking at Discharge) ondansetron (Zofran) 4 mg tabletIndication s:Transplant Liver (HCC),Nausea,Med ication Therapy Chcf Not 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 Take 1 tablet (4 mg total) by mouth every 6 (six) hours as needed for nausea or vomiting. 30 tablet 05/05/19 25 2:47 PM GRINDER AND HONER OPERATOR AUTOMATIC 025 2024 Discontinued tacrolimus (Prograf) 1 mg capsuleIndicatio ns:prevention of liver transplant rejection Place 2 capsules (2 mg total) under the tongue every morning AND 2 capsules (2 mg total) every evening. 360 capsule 3 06/27/19 25 5:33 PM GRINDER AND HONER OPERATOR AUTOMATIC 025 2024 Discontinued insulin glargine 100 unit/mL (3 mL) pen Inject 7 Units under the skin 2 (two) times a day. Pharmacy select brand per patient insurance/prefe rence. Patient to use glargine until she receives Tresiba. 12.6 mL 2 2024 Discontinued insulin aspart U-100 (NovoLOG Flexpen U-100 Insulin) 100 unit/mL (3 mL) pen Inject 4 Units under the skin 3 (three) times a day with meals. For blood glucose: 140 - 179: give 0 units 180-219: give 1 unit 220-259: +2 units 260-299: +3 units 300-339: +5 units 340-379: +7 units 380-399: +9 units Greater than 399: Call service writing Insulin orders 15 mL 3 2024 Discontinued pregabalin (Lyrica) 100 mg capsule Take 1 capsule (100 mg total) by mouth 2 (two) times a day. 60 capsule 2024 Discontinued HYDROmorphone (Dilaudid) 4 mg tabletIndication s:Chronic Pain/Nonacute Pain Take 0.5 tablets (2 mg total) by mouth every 12 (twelve) hours Indication: Chronic Pain/Nonacute Pain. 5 tablet 025 2024 Discontinued HYDROmorphone (Dilaudid) 2 mg tabletIndication s:Chronic Pain/Nonacute Pain Take 1 tablet (2 mg total) by mouth every 6 (six) hours as needed for severe pain or score 7-10 of 10 for up to 7 days Indication: Chronic Pain/Nonacute Pain. 28 tablet 08/26/19 25 8:13 PM CDT 025 2024 Discontinued(R eorder) pregabalin (Lyrica) 25 mg capsule Take 5 capsules (125 mg total) by mouth 2 (two) times a day. 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 28 tablet 08/26/19 25 8:13 PM CDT 025 2024 Discontinued insulin aspart U-100 (NovoLOG Flexpen U-100 Insulin) [...] after visit with PCP Wednesday 15 mL 2024 Discontinued pregabalin (Lyrica) 25 mg capsule Take 1 capsule (25 mg total) by mouth 2 (two) times a day. 60 capsule 2024 Discontinued pregabalin (Lyrica) 100 mg capsule Take 1 capsule (100 mg total) by mouth 2 (two) times a day. 60 capsule 2024 Discontinued prochlorperazine (Compazine) 10 mg tablet Take 1 tablet (10 mg total) by mouth every 6 (six) hours as needed for nausea or vomiting. 30 tablet 2024 Discontinued(E rror) HYDROmorphone (Dilaudid) 2 mg tabletIndication s:Chronic Pain/Nonacute Pain Take 1 tablet (2 mg total) by mouth every 6 (six) hours as needed for severe pain or score 7-10 of 10 for up to 7 days Indication: Chronic Pain/Nonacute Pain. 28 tablet 2024 Discontinued(E rror) HYDROmorphone (Dilaudid) 2 mg tabletIndication s:Chronic Pain/Nonacute Pain Take 1 tablet (2 mg total) by mouth every 6 (six) hours as needed for severe pain or score 7-10 of 10 for up to 7 days Indication: Chronic Pain/Nonacute Pain. 28 tablet 09/01/19 9:26 AM CDT 2024 Discontinued(S top Taking at Discharge) tacrolimus (Prograf) 1 mg capsuleIndicatio ns:prevention of liver transplant rejection Take 3 capsules (3 mg total) by mouth 2 (two) times a day Indications: liver transplant rejection prevention. 540 capsule 3 09/10/19 12:32 PM CDT 025 2024 Discontinued Active Problems Problem Noted Date Diagnosed Date Rejection Liver Transplant 09/06/2024 Rejection Graft Acute 08/25/2024 Pain Abdominal Chronic 08/20/2024 Lower Abdominal Pain Unspecified 05/11/2024 Hyponatremia 03/05/2024 Neutropenia 03/05/2024 Other Specified Disorders Of Teeth And Supporting Structures 03/05/2024 Abdominal Pain 02/29/2024 Nausea And Vomiting 02/24/2024 COVID-19 Infection 12/17/2023 Fracture Vertebra Compression Thoracic [...] (02/09/2022): Added automatically from request for surgery [id number] Smoking Tobacco Use Personal History 10/10/2021 Overview (01/20/2022): Quit smoking spring 2021. Chronic Pain Syndrome 10/10/2021 Overview (05/25/2024): Patient has been on narcotic pain medication since 2021. Initially, this was prescribed in the setting of multiple compression fractures in spine, was intended to be used short term. She continued to need narcotics for pain management. I transitioned patient from Dilaudid to Suboxone September 2023 for management of chronic back pain. She was transitioned back to Dilaudid Fall 2023 during one of her many hospitalizations now for management of chronic abdominal pain due to chronic pancreatitis. I had previously suggested she be seen at an external Pain Clinic but this was not pursued. She has an upcoming visit scheduled with Pain Rehabilitation in [place] and I hopeful this provides benefit to the patient. Dilaudid prescription refilled. Follow up in 1 month. Deficiency Vitamin A 10/08/2021 Deficiency Coagulation Acquired 07/07/2021 Overview (07/07/2021): Added automatically from request for surgery [id number] Thrombocytopenia 07/01/2021 Patent Foramen Ovale 03/19/2021 Overview (11/18/2023): Echocardiogram August 2021: Positive for atrial level shunt by agitated saline contrast injection. 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 Opioids were discontinued during hospitalization of October 2021. 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 Date Type Department Care Team Description 09/14/19 1:00 PM CDT Infusion Department of Infusion Therapy in [place], [place] [address] [place] [address] Edgar Montgomery M.B.B.S., M.S. Transplant Liver (HCC) (Primary Dx); Rejection Graft Acute 09/14/19 Clinical Communication Department of Infusion Therapy in [place], [place] [address] [place] [address] Nita Long, PA-VERNON, R.N. 09/14/19 25 Orders Only [facility], [place], operated by [facility] for Transplantation and Clinical Regeneration in [place], [place] [address] [place] [address] Ben Redmond APRN, C.N.P., D.N.P. 09/14/19 25 Clinical Communication [facility], [place] operated [facility] for Transplantation and Clinical Regeneration in [place], [place] [address] [place] [address] Debi Cerda, REric., C.C.T.C. 09/14/19 25 Orders Only [facility], [place] for Transplantation and Clinical Regeneration in [place], [place] [address] [place] [address] Noreen Ansari, P.A.-C., M.S. Aftercare Transplant Liver (HCC) (Primary Dx) 09/14/19 Clinical Communication [facility], [place] Transplantation and Clinical Regeneration in [place], [place] [address] [place] [phone] Sony Carty R.N. 09/13/19 Orders Only [facility], [place] Transplantation and Clinical Regeneration in [address] [address] Sony Carty R.N. Transplant Liver (HCC) (Primary Dx); Medication Therapy Chcf Not 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; Rejection Liver Transplant (HCC) 09/12/19 11:30 PM CDT Ancillary Procedure Department of Emergency Medicine Arrived 09/12/19 9:13 PM CDT - 09/13/19 3:[address] [facility] Emergency Department [address] [place] [phone] Marcelo Ballesteros M.D. Thrombosis Venous (Primary Dx); Pain Arm Right Discharge Disposition: Home or Self Care 09/12/19 3:05 PM CDT Ancillary Procedure Department of Nursing Arrived 09/12/19 2:15 PM CDT Infusion Department of Infusion Therapy in [address] [phone] Edgar Montgomery M.B.B.S., M.S. Rejection Graft Acute (Primary Dx); Swelling Arm; Rejection Liver Transplant (HCC); Abdominal Pain Discharge Disposition: Home or Self Care 09/12/19 Documentation [facility], [place] Transplantation and Clinical Regeneration in [place], [place] [address] [place] [phone] Elsie Salcedo P.A.-C., M.S. 09/12/19 Clinical Communication Department of Infusion Therapy in [address] [address] Aidee Pulido R.N., LOUISA 09/12/19 Clinical Communication [facility], [place] for Transplantation and Clinical Regeneration in [address] [address] Michelle Luz M.D., M.S. 09/12/19 25 Clinical Communication [facility], [place] Transplantation and Clinical Regeneration in [place], [place] [address] [place] [address] Sony Carty R.N. Med Refill (Insurance Issues) 09/12/19 Clinical Communication Department of Community Internal Medicine in [address] [phone] Salima Graham R.N. Post Hospital Follow-up (DC'd 09/09/24 @ 1752) 09/10/19 Clinical Communication [facility] [address] [place] [address] Jaiden May, Pharm.DSuma, R.Ph. Medication Problem 09/09/19 25 Orders Only [facility], [place] Transplantation and Clinical Regeneration in [place], [place] [address] [place] [address] Crsielda Samayoa R.N., CCTN 09/08/19 25 Orders Only [facility], [place] Transplantation and Clinical Regeneration in [place], [place] [address] [place] [address] Criselda Samayoa R.N., CCTN Transplant Liver (HCC) (Primary Dx); Rejection Liver Transplant (HCC) 09/08/19 25 Orders Only Division of Gastroenterology in [place], [place] [address] [place] [address] Edgar Montgomery M.B.BSumaS., M.S. Rejection Graft Acute (Primary Dx) 09/08/19 25 Orders Only Division of Endocrinology in [place], [place] [address] [place] [address] Catia Quintana APRN, C.N.P. 09/07/19 25 6:25 PM CDT - 09/10/19 25 5:52 PM CDT Hospital Encounter [facility], [facility], [facility], Tenth Floor [address] [place] [address] Michelle Luz M.D., Ben Aguilar APRN, C.N.P., D.N.P. 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 Transplant Liver (HCC); Medication Therapy Kerfer Machine Operator Not 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; Elevated Liver Function Test 09/07/19 25 Intake [facility] 09/06/19 2:15 PM CDT Anesthesia Event [facility] [address] [place] [address] Mohsen Arias APRN, CRNA Kroening, Brandee J, APRN, SHANNON, D.N.P. 09/06/19 1:20 PM CDT Ancillary Procedure Department of Transplantation Surgery 09/06/19 11:33 AM CDT - 09/06/19 4:41 PM CDT Hospital Encounter [facility] 01 4 AM ADMIT [address] [place] [address] Migue Escobar M.D. Gunneson, Tim J P.A.-C. Transplant Liver (HCC); Medication Therapy Kerfer Machine Operator Not 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; Elevated Liver Function Test; Acute Abdomen Discharge Disposition: Home or Self Care 09/06/19 25 Orders Only [facility], [place] Transplantation and Clinical Regeneration in [place], [place] [address] [place] [address] Hiro Murillo P.A.-CSuma Acute Abdomen (Primary Dx) 09/06/19 25 Orders Only [facility] Ana Red MPAS, P.A.-C. 09/06/19 25 Orders Only [facility], [place] Transplantation and Clinical Regeneration in [place], [place] [address] [place] [address] Migue Escobar M.D. Rejection Liver Transplant (HCC) (Primary Dx) 09/05/19 25 Orders Only [facility], [place] for Transplantation and Clinical Regeneration in [place], [place] [address] [place] [phone] Hiro Murillo P.A.-C. 09/05/19 25 Clinical Communication [facility], [place] for Transplantation and Clinical Regeneration in [place], [place] [address] [place] [phone] Sony Carty R.N. Phone Contact 09/02/19 25 Orders Only [facility], [place] Transplantation and Clinical Regeneration in [address] [address] Noreen Ansari P.A.-C., M.S. 09/01/19 25 8:30 AM CDT Office Visit [facility], [place] for Transplantation and Clinical Regeneration in [place], [place] [address] [place] [phone] Xu Joel Jr., M.D. Leise, Michael D, M.D. Transplant Liver (HCC); Medication Therapy Chcf Not 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; Chronic Pain Syndrome 09/01/19 25 Clinical Communication Division of Endocrinology in [address] [address] Catia Quintana APRN, C.N.P. 09/01/19 25 Orders Only Division of Endocrinology in [place], [place] [address] [place] [phone] Catia Quintana APRN, C.N.P. Diabetes Mellitus Due To Underlying Condition With Ketoacidosis Without Coma (HCC) (Primary Dx) 09/01/19 25 Orders Only [facility], [place] Transplantation and Clinical Regeneration in [place], [place] [address] [place] [phone] Nola Whipple R.N., C.C.T.C. Transplant Liver (HCC) (Primary Dx); Medication Therapy Chcf Not 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; Elevated Liver Function Test 08/29/19 Clinical Communication [facility], [place] Transplantation and Clinical Regeneration in [place], [place] [address] [place] [phone] Sony Carty R.N. 08/29/19 Clinical Communication Department of [facility] Internal Medicine in [place], [place] [address] [place] [address] Xuan Malcolm R.N. Post Hospital Follow-up 08/28/19 8:00 AM CDT Infusion Department of Infusion Therapy in [place], [place] [address] [place] [phone] Xu Joel Jr., M.D. Rejection Graft Acute (Primary Dx); Abdominal Pain 08/26/19 Orders Only [facility], [place] Transplantation and Clinical Regeneration in [place], [place] [address] [place] [phone] Sony Carty R.N. Transplant Liver (HCC) (Primary Dx); Medication Therapy Chcf Not 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 08/26/19 Orders Only [facility], [place] Transplantation and Clinical Regeneration in [place], [place] [address] [place] [phone] Xu Joel Jr., M.D. Rejection Graft Acute (Primary Dx) 08/22/19 6:26 PM CDT - 08/26/19 8:23 PM CDT Hospital Encounter [facility], [facility], Sixth Floor [address] [place] [phone] Antonio Olivia M.D. McCandless, Audrey R, M.D. Abdominal Pain (Primary Dx); Nausea And Vomiting; Transplant Liver (HCC); Nausea; Medication Therapy Chcf Not 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; Chronic Pain Syndrome Discharge Disposition: Home or Self Care 08/20/19 4:53 AM CDT - 08/20/19 8:[address] [facility] Emergency Department [address] [place] [phone] Lopez Rodrigues M.D., M.B.A. Abdominal Pain (Primary Dx); Elevation Of Levels Of Liver Transaminase Levels; Nausea And Vomiting; Pancreatitis Chronic (HCC) Discharge Disposition: Home or Self Care 08/20/19 Documentation [facility], [place] for Transplantation and Clinical Regeneration in [place], [place] [address] [place] [address] Gerard King M.D. 08/19/19 Patient Self-Triage [facility] Bander, Provider 08/19/19 Clinical Communication Division of Pulmonary Medicine in [place], [place] [address] [address] [place] [address] Ben Dickson APRN, C.N.P. Reschedule (RESCHEDULE APPT) 08/17/19 Clinical Communication [facility], [place] in [place], [place] [address] [place] [address] Sony Carty R.N. 08/16/19 1:30 PM CDT Comprehensive Visit [facility], [place] [place] [facility] in [place], [place] [address] [place] [address] David Salazar APRN, C.N.P., D.N.P. Catia Quintana APRN, C.N.P. Diabetes Mellitus Due To Underlying Condition With Ketoacidosis Without Coma (HCC) 08/16/19 8:00 AM CDT Clinical Support [facility] in [place], [place] [address] [place] [address] Marquis Young, Ph.D., L.P. Conor Vega, Ph.D., L.P. Pain Abdominal Chronic (Primary Dx) 08/16/19 Patient Self-Triage CONNE[facility]ED [facility]ARE Symptom Hub Bander, Provider 08/16/19 Orders Only Division of Endocrinology in [place], [place] [address] [place] [address] Catia Quintana APRN, C.N.P. 08/15/19 25 8:00 AM CDT Clinical Support [facility] in [place], [place] [address] [place] [phone] Marquis Young, Ph.D., L.P. Conor Vega, Ph.D., L.P. Pain Abdominal Chronic (Primary Dx); Chronic Pain Syndrome 08/15/19 25 Refill Department of Community Internal Medicine in [address] [phone] Ana Red MPAS, P.A.-C. Med Refill 08/12/19 25 3:30 PM CDT Office Visit Department of Community Internal Medicine in [address] [phone] Ana Red MPAS, P.A.-C. Diabetes Mellitus Type 2 Without Complication (HCC) (Primary Dx); Pain Abdominal Chronic; Chronic Pain Syndrome 08/08/19 25 Refill Department of Community Internal Medicine in [address] [phone] Ana Red MPAS, P.A.-C. Med Refill 08/05/19 25 Refill Department of Community Internal Medicine in [address] [phone] Ana Red MPAS, P.A.-C. Med Refill 08/01/19 25 Refill Department of [facility] Internal Medicine in [address] [phone] Ana Red MPAS, P.A.-C. Med Refill 07/29/19 25 Clinical Communication Department of Community Internal Medicine in [address] [phone] Xuan Malcolm R.N. Post Hospital Follow-up (TCM call completed) 07/28/19 25 Orders Only [facility] in [place], [place] [address] [place] [address] Noreen Ansari P.A.-C., M.S. 07/28/19 25 Clinical Communication Department of [facility] Internal Medicine in [address] [address] Ana Red MPAS, P.A.-C. 07/28/19 25 Clinical Communication Division of Gastroenterology in [place], [place] [address] [place] [phone] Tyrone Kimble III, M.D., Ph.D. 07/28/19 25 Refill Department of Community Internal Medicine in [address] [address] Ana Red MPAS, P.A.-C. Med Refill 07/28/19 25 Clinical Communication Division of Community Internal Medicine, [facility] in [place], [place] [address] [place] [phone] Cynthia Godinez M.D., M.P.H. 07/28/19 25 Refill Department of Community Internal Medicine in [address] [address] Ana Red MPAS, P.A.-C. Med Refill 07/26/19 25 12:15 PM CDT - 07/28/19 25 6:21 PM CDT Hospital Encounter [facility], [facility], Sixth Floor [address] [place] [phone] Karthik Davalos M.D., M.A. Daniel Adamson M.D., M.H.P.E. Jody Aguilar M.B., B.Chir. Abdominal Pain (Primary Dx); Pancreatitis Chronic (HCC); Lower Abdominal Pain Unspecified Discharge Disposition: Home or Self Care 07/26/19 25 10:30 AM CDT Comprehensive Visit Division of Hepatobiliary and Pancreas Surgery in [place], [place] [address] [place] [phone] Ellen Aldana M.D. Pancreatitis Chronic (HCC) (Primary Dx); Nausea And Vomiting; Abdominal Pain; Transplant Liver (HCC) 07/25/19 25 1:45 PM CDT Clinical Support Division of Endocrinology in [place], [place] [address] [place] [address] Kina Coon M.B.B.SSuma Other Specified Diabetes Mellitus With Other Specified Complication (HCC) [E13.69] (Primary Dx) 07/24/19 Clinical Communication Division of Endocrinology in [place], [place] [address] [place] [address] Shira Lund M.D. 07/21/19 9:00 AM CDT Clinical Support Department of Nutrition and Diabetes Education in [place], [place] [address] [place] [address] Catia Quintana APRN, C.N.P. Jessy Baltazar R.N., [facility] Diabetes Mellitus Type 1 With Ketoacidosis Without Coma (HCC) (Primary Dx) 07/21/19 Refill Department of Community Internal Medicine in [place], [place] [address] [place] [phone] Ana Red MPAS, P.A.-C. Med Refill 07/20/19 25 Orders Only Division of Pulmonary Medicine in [place], [place] [address] [place] [phone] Ben Dickson APRN, C.N.P. Diabetes Mellitus Type 1 With Ketoacidosis Without Coma (HCC) (Primary Dx); Transplant Liver (HCC) 07/20/19 25 Episode Changes Division of Pulmonary Medicine in [place], [place] [address] [place] [phone] Ben Dickson APRN, C.N.P. 07/18/19 25 2:00 PM CDT Telemedicine [facility] in [place], [place] [address] [place] [phone] SchneeklothEleazar M.D. Morrison, Eleshia J, Ph.D., L.P. Pain Abdominal Chronic 07/18/19 25 Refill Department of Community Internal Medicine in [address] [phone] Ana Red MPAS, P.A.-C. Med Refill 07/18/19 25 Refill Department of Community Internal Medicine in [place], [place] [address] [place] [phone] Ana Red MPAS, P.A.-C. Med Refill 07/12/19 25 Clinical Communication Pharmacy Prior Auth [phone] Virginia Byers Rx Approval (Tresiba Flextouch 100 unit/ml) 07/11/19 25 Refill Department of [facility] Internal Medicine in [address] [phone] Ana Red MPAS, P.A.-C. Med Refill 07/07/19 25 11:00 AM [facility] Clinical Support Department of Nutrition and Diabetes Education in [place], [place] [address] [place] [address] Catia Quintana APRN, Katrin.N.P. Marla Hairston, M.S.N., R.N., [facility] Diabetes Mellitus Due To Underlying Condition With Ketoacidosis Without Coma (HCC) 07/07/19 25 Clinical Communication Department of Hospital Internal Medicine in [place], [place] [address] [place] [phone] Priscilla Love APRN C.N.P., M.S.N. Rx Denial (Tresiba FlexTouch 100 Units/mL ) 07/07/19 25 Refill Division of Endocrinology in [place], [place] [address] [place] [address] Catia Quintana APRN, C.N.P. Med Refill 07/07/19 25 Clinical Communication [facility] Mail [address] [place] [phone] Ben Guerrero, Pharm.D., R.Ph. Medication Problem 07/06/19 25 2:00 PM [employer] Telemedicine Department of Community Internal Medicine in [place], [place] [address] [place] [address] Ana Red MPAS, P.A.-C. Chronic Pain Syndrome (Primary Dx) 07/06/19 25 Orders Only Pharmacy Prior Auth RO [phone] Colleen Vee 07/06/19 25 Clinical Communication Department of Family Medicine, [facility], in [place], [place] [address] [place] [address] Salima Graham R.N. Post Hospital Follow-up (DC'd 07/04/24 @ 2000) 07/05/19 25 Refill [facility], Tenth Floor [address] [place] [address] Ana Red MPAS, P.A.-C. Med Refill 07/05/19 25 Refill Department of Community Internal Medicine in [place], [place] [address] [place] [address] Ana Red MPAS, P.A.-C. Med Refill 07/04/19 25 Clinical Communication Ramriez Landon diaz [facility] in [place], [place] [address] [place] [address] Sony Carty, R.N. 07/03/19 25 Orders Only Division of Endocrinology in [place], [place] [address] [place] [address] Jarek Mandujano M.D. Other Specified Diabetes Mellitus With Ketoacidosis Without Coma (HCC) (Primary Dx) 06/30/19 25 6:14 PM [employer] - 07/05/19 25 8:01 PM [employer] Hospital Encounter [facility], [facility], Third Floor [address] [place] [address] Jessy Knight M.D., M.S. Chidi Kolb M.D., M.B.A. Joshua Elena M.D. Stephen Lozada M.D. Abdominal Pain (Primary Dx); Pancreatitis Chronic (HCC); Other Specified Diabetes Mellitus With Ketoacidosis Without Coma (HCC) Discharge Disposition: Home or Self Care 06/30/19 2:00 PM [employer] Telemedicine Department of Nutrition and Diabetes Education in [place], [place] [address] [place] [address] David Salazar APRN, C.N.PSuma, D.N.PNancy Ruiz R.N. Diabetes Mellitus Due To Underlying Condition With Ketoacidosis Without Coma (HCC) 06/30/19 Patient Self-Triage [facility] Symptom Hub Bander, Provider 06/28/19 Clinical Communication Department of [facility], [facility], in [address] [phone] Joan Henry RGabby Post Hospital Follow-up (TCM call attempt #2) 06/21/19 10:25 PM [employer] Ancillary Procedure Department of Pulmonary and CC Medicine 06/21/19 8:09 PM [employer] - 06/27/19 6:58 PM [employer] Hospital Encounter [facility], Sixth Floor [address] [place] [address] Nora Garcia M.D. Hwang, Soyun M, M.D. Shah, Vishal P, M.D., M.P.H. Denise Vazquez M.B.B.S. Diabetes Mellitus Type 1 With Ketoacidosis Without Coma (HCC) (Primary Dx); Lower Abdominal Pain Unspecified; Other Specified Disorders Of Teeth And Supporting Structures; Neutropenia (HCC); Hyponatremia; Abdominal Pain; Nausea And Vomiting; COVID-19 Infection; Fracture Vertebra Compression Thoracic Closed Subsequent; Immunodeficiency Due To Drugs (HCC); Osteoporosis; Pancreatitis Post Endoscopic Retrograde Cholangiopancreatography (HCC); Stone Pancreatic Duct; Anemia Posthemorrhagic Acute (Blood Loss Anemia); Transplant Liver (HCC); End Stage Liver Disease (HCC); Hemorrhage Gastrointestinal; Moderate Or Severe Use Disorder (Dependence) Drug Cannabis Remission (HCC); Hypertension Portal (HCC); Hepatic Encephalopathy (HCC); Cannabis Moderate Or Severe Use Disorder (Dependence) Uncomplicated (HCC); Lumbago With Sciatica Left Side; Fracture T11-12 Wedge Compression Closed Initial (HCC); Fracture Lumbar Third Wedge Compression Closed Initial (HCC); Alcoholic Hepatitis Without Ascites (HCC); Cirrhosis Alcoholic (HCC); Splenomegaly Congestive Chronic; Atelectasis; Deficiency Vitamin D; Restless Leg Syndrome; Esophageal Varices Without Bleeding (HCC); Chronic Pain Syndrome; Smoking Tobacco Use Personal History; Deficiency Vitamin A; Deficiency Coagulation Acquired (HCC); Thrombocytopenia (HCC); Moderate Or Severe Use Disorder (Dependence) Alcohol Remission (HCC); Patent Foramen Ovale (HCC); Rhinitis Allergic; Pancreatitis Chronic (HCC); Hepatic Failure Unspecified Without Coma (HCC); Gastroesophageal Reflux Disease Without Esophagitis; Alcoholic Cirrhosis Of Liver With Ascites (HCC); Anxiety Generalized Disorder; Anemia Macrocytic; Diabetes Mellitus Due To Underlying Condition With Ketoacidosis Without Coma (HCC); Medication Therapy Chcf Not 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 Discharge Disposition: Home or Self Care 06/21/19 25 Clinical Communication Department of Community Internal Medicine in [place], [place] [address] [place] [phone] Ana Red MPAS, P.A.-C. Phone Contact (HYDROmorphone (Dilaudid)/) 06/20/19 25 Refill Department of [facility] Internal Medicine in [place], [place] [address] [place] [phone] Ana Red MPAS, P.A.-C. Med Refill 06/20/19 25 Clinical Communication Division of Hepatobiliary and Pancreas Surgery in [place], [place] [address] [place] [address] Ellen Aldana M.D. 06/20/19 25 Clinical Communication Ramirez [facility] in [place], [place] [address] [place] [address] Kenny Purdy M.D. [facility] 06/19/19 25 Clinical Communication [facility] in [place], [place] [address] [place] [address] Eleazar Velazquez M.D. from Last 3 Months Immunizations Immunization Administration Dates Next Due DTP 03/14/1992, 1,1990,1990 [...] Td (Adult), adsorbed 09/08/2002 Tdap 03/07/2014 influenza trivalent high dos e (HD)(PF) 03/08/2024,03/06/2024(Deferred: Patient Refused - patient would like tomorrow prior to DC) influenza vaccine quad (FLUZONE/FLUARIX) (6 months and [...] alcohol in about a year or so. [facility] [employer] Answer Date Recorded In the past 12 months has [facility] [employer], gas, oil, or water [employer] threatened to shut off services in your [...] often do you attend chur ch or scientology services? Patient declined 02/10/2022 Do you belong to any clubs o r organizations such as zoroastrianism groups, unions, fraternal [...] Answer Date Recorded PHQ-2 Score 0 08/11/2024 [facility]ational [facility] Questionnaire [...] your living situation today? I have a [facility] place to live 09/09/2024 Education Answer Date Recorded What is the highest level of school you have completed or the highest degree you have received? Associate degree: occupational, technical, or vocational program 07/16/2021 Comments No Sex and Gender Information Value Date Recorded Sex Assigned at Female 04/12/2021 7:39 PM [employer] Legal Sex Female 7:53 PM [employer] Gender Identity Female 04/12/2021 7:39 PM [employer] Sexual Orientation Straight 04/12/2021 7: 39 PM [employer]PER[employer] Last Filed Vital Signs Vital Sign Reading [...] oz) 09/13/2024 1:21 P M CDT Height 152.6 cm (5' 0.08) 09/08/2024 12:12 PM C DT Body Mass Index 23.1 09/08/2024 12:12 PM CDT Plan of Treatment Upcoming Encounters Date Type Department Care Team (Latest Contact Info) Description 09/14/2024 11:00 AM CDT Appointment Department of Radiology, [facility], in [place], [place] [address] [place] [address] Noreen Ansari P.A.-C., M.S. [address] [place] [phone] Jesus Figueroa M.D. [address] [place] [phone] 09/14/2024 4:00 PM CDT Telemedicine Division of Pulmonary Medicine in [place], [place] [address] [place] [address] Ben Dickson APRN, C.N.P. [address] [place] [phone] 09/15/2024 8:00 AM CDT Lab Department of Laboratory Medicine and Pathology, [facility] in [place], [place] [address] [place] [address] Edgar Montgomery M.B.B.S., M.S. [address] [place] [phone] 09/15/2024 10:00 AM CDT Comprehensive Visit [facility] in [place], [place] [address] [place] [address] Edgar Montgomery M.B.B.S., M.S. [address] [place] [phone] Miriam Strickland M.D. [address] [place] [phone] 09/15/2024 11:00 AM CDT Office Visit [facility], [place], operated by [facility] for Transplantation and Clinical Regeneration in [place], [place] [address] [place] [address] Edgar Montgomery M.B.B.S., M.S. [address] [place] [phone] Discharge Disposition: Home or Self Care 09/15/2024 1:45 PM CDT Infusion Department of Infusion Therapy in [place], [place] [address] [place] [address] Juan Pete M.D. [address] [place] [phone] 09/18/2024 2:15 PM CDT Hospital Encounter Department of Radiology, [facility] in [place], [place] [address] [place] [address] Edgar Montgomery M.B.B.S., M.S. [address] [place] [phone] 09/20/2024 3:00 PM CDT Comprehensive Visit [facility] [place], operated by [facility] Trans[facility] and Clinical Regeneration in [place], [place] [address] [place] [address] Catia Quintana APRN, C.N.P. [address] [place] [address] 10/03/2024 9:00 AM CDT Appointment Department of Radiology, [facility], in [place], [place] [address] [place] [address] Marisabel Carpenter APRN, C.N.P., D.N.P. [address] [place] [phone] 10/05/2024 12:00 PM CDT Appointment Division of Pulmonary Medicine in [place], [place] [address] [place] [address] Edgar Montgomery M.B.B.S., M.S. [address] [place] [phone] 10/10/2024 7:50 AM CDT Lab Department of Laboratory Medicine and Pathology, [facility] in [place], [place] [address] [place] [address] Marisabel Carpenter APRN, C.N.P., D.N.P. [address] [place] [phone] 10/10/2024 8:00 AM CDT Lab Department of Laboratory Medicine and Pathology, [facility] in [place], [place] [address] [place] [address] Marisabel Carpenter APRN, C.N.P., D.N.P. [address] [place] [phone] 10/10/2024 8:30 AM CDT Nurse Only Ramirez [facility] in [place], [place] [address] [place] [phone] Marisabel Carpenter APRN, C.N.P., D.N.P. [address] [place] [address] 10/10/2024 9:20 AM CDT Appointment Department of Radiology, [facility] in [place], [place] [address] [place] [address] Marisabel Carpenter APRN, C.N.P., D.N.P. [address] [place] [phone] 10/10/2024 9:45 AM CDT Appointment Department of Laboratory Medicine and Pathology, [facility] in [place], [place] [address] [place] [address] Marisabel Carpenter APRN, Katrin.N.PSuma, D.N.P. [address] [place] [phone] 10/10/2024 1:30 PM CDT Appointment Department of Radiology, [facility] in [place], [place] [address] [place] [address] Marisabel Carpenter APRN, C.N.PSuma, D.N.P. [address] [place] [phone] 10/10/2024 2:45 PM CDT Appointment Department of Radiology, [facility] in [place], [place] [address] [place] [address] Marisabel Carpenter APRN, C.N.PSuma, D.N.P. [address] [place] [phone] 10/11/2024 8:00 AM CDT [facility] in [place], [place] [address] [place] [address] Marisabel Carpenter APRN, C.N.PSuma, D.N.P. [address] [place] [phone] 10/11/2024 11:00 AM CDT Comprehensive Visit [facility] [place] for Transplantation and Clinical Regeneration in [place], [place] [address] [place] [address] Sree Devlin M.D. [address] [place] [phone] 10/11/2024 1:00 PM CDT Comprehensive Visit Department of Otorhinolaryngology in [place], [place] [address] [place] [phone] Randal Urbano P.A.-C., M.S. [address] [place] [phone] 10/11/2024 2:00 PM CDT Office Visit [facility], [place], operated [facility] for Transplantation and Clinical Regeneration in [place], [place] [address] [place] [phone] Hiro Murillo P.A.-C. [address] [place] [phone] 10/11/2024 4:00 PM CDT Comprehensive Visit Department of Dermatology in [place], [place] [address] [place] [phone] Parul Martinez M.D. [address] [place] [phone] 10/12/2024 8:00 AM CDT Telemedicine [facility], [place] Clinical Regeneration in [place], [place] [address] [place] [phone] Ervin Mckeon D.O. [address] [place] [phone] 11/01/2024 2:15 PM CDT Appointment Division of Pulmonary Medicine in [place], [place] [address] [place] [phone] Edgar Montgomery M.B.B.S., M.S. [address] [place] [phone] Health Maintenance Due Date Last Done Comments Hepatitis A Vaccines (1 of 2 - Risk 2-dose series) 2009 Zoster Vaccines (1 of 2) 2009 HPV Vaccines (1 - Risk 3-dos e SCDM series) 2017 COVID-19 Vaccine (3 - Pfizer risk series) 05/13/2021 04/15/2021, 03/25/2021 DTaP,Tdap,and Td Vaccines (7 - Td or Tdap) 03/07/2024 03/07/2014, 09/08/2002, 05/26/1995, Additional history exists Controlled Substance Agreement 06/29/2024 06/29/2023 PEG assessment for Opioid therapy 08/23/2024 025 Abdominal Ultrasound 02/20/2025 08/21/2024, 06/21/2024, 05/11/2024, Additional history exists Controlled Substance Monitor ing (UDS) 06/22/2025 06/22/2024 Controlled Substance Monitor ing (PHQ-9) 08/11/2025 08/11/2024 Generalized Anxiety (APPLE-7) 08/11/2025 08/11/2024 Fasting Glucose for Diabetes Screening 09/13/2025 09/13/2024, 09/11/2024, 09/11/2024, Additional history exists Cervical/Vaginal Cancer Screening 06/25/2027 06/25/2022, 06/25/2022, 02/28/2014, Additional history exists IPV Vaccines Completed 05/26/1995, 05/04, 05/26/1995, Additional history exists Hepatitis B Screening Discontinued 03/12/2021, 019 Pneumococcal vaccine (0-49 years) Completed 023 HIV Screening Completed 10/10/2022, 01/02, 09/30/2021 Influenza Vaccine Completed 03/08/2024, , 03/07/2014, Additional history exists Depression Screening (Annual PHQ-2) Completed 08/11/2024, 08/11/2024 Medical Devices Implanted Type Area Network Admin Device Identifier Shelf Expiration Date Model / Serial / Lot Stnt Herculink Rx [id number] - [id number] Implanted:Qty : 1 on 12/11/2022 by Gonzalo Sheridan M.D. at [facility] Biliary Stent Rebolledo 09/30/2024 [id number] Mirena Iud-07/31/2022 Implanted:Qty : 1 on 07/31/2022 by Faviola Dickson APRN, C.N.P. Intrauterine Device Midline: Uterus Felipe 08/30/2024 / / [id number] Description:Mirena IUD Explanted Type Area Network Admin Device Identifier Shelf Expiration Date Model / Serial / Lot Stnt Gnn Pncr Dbl 7fx12 - [id number] Implanted:Qty: 1 on 12/29/2022 by Harinder Whiteside M.D., M.S. at [facility] Explanted:Qty: 1 on 02/16/2023 by Pura Hummel M.D. at [facility] Biliary Stent N/A: Pancreas [employer] 01/08/2025 [id number] / / [id number] Description:7x12 double flap pancreas stent [facility] Pncr Wdg 8.5fx22 - [id number] Implanted:Qty: 1 on 02/16/2023 by Pura Hummel M.D. at [facility] Explanted:Qty: 1 on 05/27/2023 by Juan Ross M.D. at [facility] Biliary Stent N/A: Pancreas [employer] 01/21/2026 [id number] / / [id number] Description:8.5x14 Intrauterine Device Explanted:Qty: 1 on 07/31/2022 by Faviola Dickson APRN, C.N.P. Intrauterine Device N/A: Cervix Procedures Procedure Name Priority Date/Time Associated Diagnosis Comments PLACE PERIPHERALLY INSERTED CENTRAL CATHETER (PICC) Routine 09/13/2024 1:00 PM CDT Transplant Liver (HCC) QN LYMPHOCYTE SUBSETS: T, B, AND NK, B Routine 09/13/2024 12:18 PM CDT Transplant Liver (HCC) Rejection Liver Transplant (HCC) CBC NO CALL BACK, REFLEX T/S Routine 09/13/2024 12:18 PM CDT Transplant Liver (HCC) Rejection Liver Transplant (HCC) BILIRUBIN DIRECT, S/P Routine 09/13/2024 12:18 PM CDT Transplant Liver (HCC) Rejection Liver Transplant (HCC) COMPREHENSIVE METABOLIC PANEL, S/P Routine 09/13/2024 12:18 PM CDT Transplant Liver (HCC) CMV DNA DETECT/QUANT, P Routine 09/14/19 12:18 PM CDT Transplant Liver (HCC) Rejection Liver Transplant (HCC) PATIENT STATUS STAT 09/12/2024 2:11 AM CDT VENOUS BLOOD GAS W/O COOX STAT 09/12/2024 2:[address] CHEST ANGIOGRAM AND PULMONARY ARTERIES WITH IV CONTRAST RAD - Semiurgent (Fast; most ED patients; some inpatients) 09/12/2024 12:29 AM CDT TROPONIN T, BASELINE, 5TH GEN, P STAT 09/11/2024 11:55 PM CDT NT-PRO B-TYPE NATRIURETIC PEPTIDE (BNP), S STAT 09/11/2024 11:55 PM CDT BASIC METABOLIC PANEL, S/P STAT 09/11/2024 11:55 PM CDT CBC WITH DIFFERENTIAL, B STAT 025 11:55 PM CDT HUMAN CHORIONIC GONADOTROPIN (HCG), EDDI, STAT 09/11/2024 11:55 PM CDT ECG STAT 09/11/2024 11:43 PM CDT EMERGENCY MEDICINE IMAGE EXAM Routine 09/11/2024 11:30 PM CDT US UPPER EXTREMITY VEINS RIGHT RAD - Semiurgent (Fast; most ED patients; some inpatients) 09/11/2024 10:05 PM CDT BACTERIA / RAUDEL CULTURE, BLOOD Routine 09/11/2024 4:48 PM CDT Swelling Arm Rejection Liver Transplant (HCC) BASIC METABOLIC PANEL, S/P Routine 09/11/2024 4:47 PM CDT Swelling Arm Rejection Liver Transplant (HCC) HEPATIC FUNCTION PANEL, S Routine 09/11/2024 4:47 PM CDT Swelling Arm Rejection Liver Transplant (HCC) BETA-HYDROXYBUTYRATE, S STAT 09/12/19 25 4:46 PM CDT CBC WITH DIFFERENTIAL, B Routine 025 4:46 PM CDT Swelling Arm Rejection Liver Transplant (HCC) BACTERIA / RAUDEL CULTURE, BLOOD Routine 09/11/2024 4:45 PM CDT Swelling Arm Rejection Liver Transplant (HCC) NURSING IMAGE EXAM Routine 09/11/2024 3:03 PM CDT GLUCOSE POCT, B Routine 09/09/2024 5:06 PM CDT GLUCOSE POCT, B Routine 09/09/2024 9:56 AM CDT GLUCOSE POCT, B Routine 09/09/2024 6:34 AM CDT TACROLIMUS LEVEL, B Routine 09/09/2024 5:36 AM CDT HEPATIC FUNCTION PANEL, S Routine 09/09/2024 5:36 AM CDT CBC WITH DIFFERENTIAL, B Routine 025 5:36 AM CDT BASIC METABOLIC PANEL, S/P Routine 09/09/2024 5:36 AM CDT GLUCOSE POCT, B Routine 09/09/2024 1:52 AM CDT GLUCOSE POCT, B Routine 09/08/2024 11:42 PM CDT GLUCOSE POCT, B Routine 09/08/2024 8:07 PM CDT GLUCOSE POCT, B Routine 09/08/2024 4:17 PM CDT GLUCOSE POCT, B Routine 09/08/2024 12:13 PM CDT GLUCOSE POCT, B Routine 09/08/2024 8:30 AM CDT TACROLIMUS LEVEL, B Routine 09/08/2024 5:04 AM CDT HEPATIC FUNCTION PANEL, S Routine 09/08/2024 5:04 AM CDT CBC WITH DIFFERENTIAL, B Routine 025 5:04 AM CDT BASIC METABOLIC PANEL, S/P Routine 09/08/2024 5:04 AM CDT GLUCOSE POCT, B Routine 09/08/2024 3:06 AM CDT GLUCOSE POCT, B Routine 09/07/2024 11:24 PM CDT GLUCOSE POCT, B Routine 09/07/2024 5:40 PM CDT GLUCOSE POCT, B Routine 09/07/2024 1:26 PM CDT US LIVER TRANSPLANT RAD - Routine (most inpatients and all outpatients) 09/07/2024 10:36 AM CDT GLUCOSE POCT, B Routine 09/07/2024 8:11 AM CDT HEPATIC FUNCTION PANEL, S Routine 09/07/2024 7:32 AM CDT BASIC METABOLIC PANEL, S/P Routine 09/07/2024 7:32 AM CDT CBC WITH DIFFERENTIAL, B Routine 025 7:32 AM CDT TACROLIMUS LEVEL, B Routine 09/07/2024 7:32 AM CDT GLUCOSE POCT, B Routine 09/06/2024 9:41 PM CDT PROTHROMBIN TIME (PT), P STAT 025 8:30 PM CDT BILIRUBIN DIRECT, S/P STAT 09/06/2024 8:30 PM CDT CBC WITHOUT DIFFERENTIAL, B STAT 09/06/2024 8:30 PM CDT COMPREHENSIVE METABOLIC PANEL, S/P STAT 09/06/2024 8:30 PM CDT ECG Routine 09/06/2024 7:02 PM CDT FL US GUIDE PLC NDL Routine 09/05/2024 4:17 PM CDT Transplant Liver (HCC) Medication Therapy Kerfer Machine Operator Not 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 Elevated Liver Function Test FL BX NDL LIVER PERC Routine 09/05/2024 4:17 PM CDT Transplant Liver (HCC) Medication Therapy [facility] Not 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 Elevated Liver Function Test SURGICAL PATHOLOGY Routine 09/05/2024 2:31 PM CDT TRANSPLANTATION SURG IMAGE EXAM Routine 09/05/2024 1:20 PM CDT PROTHROMBIN TIME (PT), P Routine 025 11:27 AM CDT Transplant Liver (HCC) Medication Therapy [facility] Not 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 Elevated Liver Function Test BILIRUBIN DIRECT, S/P Routine 09/05/2024 11:27 AM CDT Transplant Liver (HCC) TACROLIMUS LEVEL, B Routine 09/05/2024 11:27 AM CDT Transplant Liver (HCC) COMPREHENSIVE METABOLIC PANEL, S/P Routine 09/05/2024 11:27 AM CDT Transplant Liver (HCC) CBC WITH DIFFERENTIAL, B Routine 025 11:27 AM CDT Transplant Liver (HCC) CMV DNA DETECT/QUANT, P Routine 09/06/19 11:27 AM CDT Transplant Liver (HCC) Rejection Liver Transplant (HCC) ALANINE AMINOTRANSFERASE (ALT), S/P Routine 09/05/2024 11:19 AM CDT ASPARTATE AMINOTRANSFERASE (AST), S/P Routine 09/05/2024 11:19 AM CDT Rejection Liver Transplant (HCC) TACROLIMUS LEVEL, B Routine 08/31/2024 8:20 AM CDT Transplant Liver (HCC) Medication Therapy [facility] Not 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 COMPREHENSIVE METABOLIC PANEL, S/P Routine 08/31/2024 8:20 AM CDT Transplant Liver (HCC) Medication Therapy 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 Machine Operator Not 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 CBC WITH DIFFERENTIAL, B Routine 025 8:20 AM CDT Transplant Liver (HCC) Medication Therapy [facility] Not 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 BILIRUBIN DIRECT, S/P Routine 08/31/2024 8:20 AM CDT Transplant Liver (HCC) Medication Therapy [facility] Not 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 GLUCOSE POCT, B Routine 08/25/2024 5:03 PM [...] POCT, B Routine 08/24/2024 7:40 AM CDT TACROLIMUS LEVEL, B Routine 08/24/2024 7:04 AM CDT BASIC METABOLIC PANEL, S/P Routine 08/24/2024 7:04 AM CDT MAGNESIUM, S Timed 08/24/2024 7:04 AM CDT PHOSPHORUS (INORGANIC), S Timed 08/24/2024 7:04 AM CDT HEPATIC FUNCTION PANEL, S Timed 08/24/2024 7:04 AM CDT CBC WITH DIFFERENTIAL, B Timed 7:04 AM CDT GLUCOSE POCT, B Routine 08/23/2024 10:18 PM CDT GLUCOSE POCT, B Routine 08/23/2024 6:21 PM CDT GLUCOSE POCT, B Routine 08/23/2024 12:23 PM CDT PROTHROMBIN TIME (PT), P Routine 025 12:23 PM CDT CBC WITH DIFFERENTIAL, B Routine 025 12:23 PM CDT PHOSPHATIDYLETHANOL CONFIRMATION, B Routine 08/23/2024 12:22 PM CDT TACROLIMUS LEVEL, B Routine 08/23/2024 10:46 AM CDT BASIC METABOLIC PANEL, S/P Timed 08/23/2024 10:46 AM CDT MAGNESIUM, S Routine 08/23/2024 10:46 AM CDT PHOSPHORUS (INORGANIC), S Routine 08/23/2024 10:46 AM CDT HEPATIC FUNCTION PANEL, S Routine 08/23/2024 10:46 AM CDT LIVER TRANSPLANT BIOPSY [...] POCT, B Routine 08/22/2024 7:58 AM CDT MAGNESIUM, S Routine 08/22/2024 4:23 AM CDT PHOSPHORUS (INORGANIC), S Routine 08/22/2024 4:23 AM CDT HEPATIC FUNCTION PANEL, S Routine 08/22/2024 4:23 AM CDT BASIC METABOLIC PANEL, S/P Routine 08/22/2024 4:23 AM CDT CBC WITH DIFFERENTIAL, B Routine 025 4:[address] ABDOMEN PELVIS WITH IV CONTRAST RAD - Semiurgent (Fast; most ED patients; some inpatients) 08/21/2024 8:[address] PERIPHERAL IV Routine 08/21/2024 8:32 PM CDT HUMAN CHORIONIC GONADOTROPIN (HCG), EDDI, STAT 08/21/2024 6:47 PM CDT LACTATE FOR SEPSIS WITH REFLEX STAT 08/21/2024 6:47 PM CDT CBC WITH DIFFERENTIAL, B STAT 025 6:47 PM CDT LIPASE, S/P STAT 08/21/2024 6:47 PM CDT HEPATIC FUNCTION PANEL, S STAT 08/21/2024 6:47 PM CDT BASIC METABOLIC PANEL, S/P STAT 08/21/2024 6:47 PM CDT ECG STAT 08/21/2024 6:44 PM CDT HUMAN CHORIONIC GONADOTROPIN (HCG), EDDI, STAT 08/19/2024 5:40 AM CDT LACTATE FOR SEPSIS WITH REFLEX STAT 08/19/2024 5:40 AM CDT CBC WITH DIFFERENTIAL, B STAT 025 5:40 AM CDT LIPASE, S/P STAT 08/19/2024 5:40 AM CDT HEPATIC FUNCTION PANEL, S STAT 08/19/2024 5:40 AM CDT BASIC METABOLIC PANEL, S/P STAT 08/19/2024 5:40 AM CDT PH, U STAT 08/19/2024 5:12 AM CDT OSMOLALITY, U STAT 08/19/2024 5:12 AM CDT DIPSTICK, U STAT 08/19/2024 5:12 AM CDT MICROSCOPIC AUTOMATED STAT 08/19/2024 5:12 AM CDT URINALYSIS WITH MICROSCOPIC STAT 08/19/2024 5:12 AM CDT BACTERIAL CULTURE, AEROBIC + SUSC, URINE STAT 08/19/2024 5:12 AM CDT GLUCOSE POCT, B Routine 07/27/2024 5:34 PM CDT GLUCOSE POCT, B Routine 07/27/2024 3:15 PM CDT GLUCOSE POCT, B Routine 07/27/2024 11:28 AM CDT GLUCOSE POCT, B Routine 07/27/2024 11:09 AM CDT GLUCOSE POCT, B Routine 07/27/2024 7:48 AM CDT TACROLIMUS LEVEL, B Timed 07/27/2024 6:38 AM CDT CBC WITH DIFFERENTIAL, B Routine 025 6:38 AM CDT BASIC METABOLIC PANEL, S/P Routine 07/27/2024 6:38 AM CDT GLUCOSE POCT, B Routine 07/26/2024 9:59 PM CDT GLUCOSE POCT, B Routine 07/26/2024 7:30 PM CDT GLUCOSE POCT, B Routine 07/26/2024 7:11 PM CDT GLUCOSE POCT, B Routine 07/26/2024 5:36 PM CDT GLUCOSE POCT, B Routine 07/26/2024 2:44 PM CDT GLUCOSE POCT, B Routine 07/26/2024 11:59 AM CDT CBC WITH DIFFERENTIAL, B Routine 9:10 AM CDT BASIC METABOLIC PANEL, S/P Routine 07/26/2024 9:10 AM CDT GLUCOSE POCT, B Routine 07/26/2024 8:[address] ABDOMEN PELVIS WITHOUT IV CONTRAST RAD - Semiurgent (Fast; most ED patients; some inpatients) 07/25/2024 10:41 PM CDT GLUCOSE POCT, B Routine 07/25/2024 8:46 PM CDT GLUCOSE POCT, B Routine 07/25/2024 7:16 PM CDT GLUCOSE POCT, B Routine 07/25/2024 6:47 PM CDT GLUCOSE POCT, B Routine 07/25/2024 6:[address] EXAMINATION NOT PERFORMED RAD - Semiurgent (Fast; most ED patients; some inpatients) 07/25/2024 2:51 PM CDT GLUCOSE POCT, B STAT 07/25/2024 1:34 PM CDT CBC WITH DIFFERENTIAL, B STAT 025 1:34 PM CDT BASIC METABOLIC PANEL, S/P STAT 07/25/2024 1:34 PM CDT THYROID-STIMULATING HORMONE-SENSITIVE (S-TSH) STAT 07/25/2024 1:33 PM CDT HUMAN CHORIONIC GONADOTROPIN (HCG), EDDI, STAT 07/25/2024 1:33 PM CDT HEPATIC FUNCTION PANEL, S STAT 07/25/2024 1:33 PM CDT LIPASE, S/P STAT 07/25/2024 1:33 PM CDT ECG STAT 07/25/2024 1:27 PM CDT GLUCOSE POCT, B Routine 07/04/2024 4:20 PM GRINDER AND HONER OPERATOR AUTOMATIC GLUCOSE POCT, B Routine 07/04/2024 11:04 AM GRINDER AND HONER OPERATOR AUTOMATIC GLUCOSE POCT, B Routine 07/04/2024 8:01 AM GRINDER AND HONER OPERATOR AUTOMATIC GLUCOSE POCT, B Routine 07/04/2024 5:57 AM GRINDER AND HONER OPERATOR AUTOMATIC GLUCOSE POCT, B Routine 07/03/2024 8:51 PM GRINDER AND HONER OPERATOR AUTOMATIC GLUCOSE POCT, B Routine 07/03/2024 4:33 PM GRINDER AND HONER OPERATOR AUTOMATIC GLUCOSE POCT, B Routine 07/03/2024 11:12 AM GRINDER AND HONER OPERATOR AUTOMATIC CBC WITHOUT DIFFERENTIAL, B Routine 07/03/2024 7:52 AM GRINDER AND HONER OPERATOR AUTOMATIC COMPREHENSIVE METABOLIC PANEL, S/P Routine 07/03/2024 7:52 AM GRINDER AND HONER OPERATOR AUTOMATIC GLUCOSE POCT, B Routine 07/03/2024 7:32 AM GRINDER AND HONER OPERATOR AUTOMATIC GLUCOSE POCT, B Routine 07/03/2024 2:57 AM GRINDER AND HONER OPERATOR AUTOMATIC GLUCOSE POCT, B Routine 07/02/2024 10:09 PM GRINDER AND HONER OPERATOR AUTOMATIC GLUCOSE POCT, B Routine 07/02/2024 9:06 PM GRINDER AND HONER OPERATOR AUTOMATIC GLUCOSE POCT, B Routine 07/02/2024 5:56 PM GRINDER AND HONER OPERATOR AUTOMATIC GLUCOSE POCT, B Routine 07/02/2024 11:50 AM GRINDER AND HONER OPERATOR AUTOMATIC TACROLIMUS LEVEL, B Timed 07/02/2024 7:29 AM GRINDER AND HONER OPERATOR AUTOMATIC COMPREHENSIVE METABOLIC PANEL, S/P Routine 07/02/2024 7:29 AM GRINDER AND HONER OPERATOR AUTOMATIC CBC WITHOUT DIFFERENTIAL, B Routine 07/02/2024 7:29 AM GRINDER AND HONER OPERATOR AUTOMATIC GLUCOSE POCT, B Routine 07/02/2024 7:07 AM GRINDER AND HONER OPERATOR AUTOMATIC GLUCOSE POCT, B Routine 07/02/2024 1:58 AM GRINDER AND HONER OPERATOR AUTOMATIC GLUCOSE POCT, B Routine 07/01/2024 9:21 PM GRINDER AND HONER OPERATOR AUTOMATIC GLUCOSE POCT, B Routine 07/01/2024 6:06 PM GRINDER AND HONER OPERATOR AUTOMATIC GLUCOSE POCT, B Routine 07/01/2024 1:22 PM GRINDER AND HONER OPERATOR AUTOMATIC GLUCOSE POCT, B Routine 07/01/2024 11:54 AM GRINDER AND HONER OPERATOR AUTOMATIC GLUCOSE POCT, B Routine 07/01/2024 10:02 AM GRINDER AND HONER OPERATOR AUTOMATIC GLUCOSE POCT, B Routine 07/01/2024 7:15 AM GRINDER AND HONER OPERATOR AUTOMATIC HUMAN CHORIONIC GONADOTROPIN (HCG), EDDI STAT 06/30/2024 6:35 PM GRINDER AND HONER OPERATOR AUTOMATIC LACTATE, B/P STAT 06/30/2024 6:35 PM GRINDER AND HONER OPERATOR AUTOMATIC CBC WITH DIFFERENTIAL, B STAT 025 6:35 PM GRINDER AND HONER OPERATOR AUTOMATIC LIPASE, S/P STAT 06/30/2024 6:35 PM GRINDER AND HONER OPERATOR AUTOMATIC HEPATIC FUNCTION PANEL, S STAT 06/30/2024 6:35 PM GRINDER AND HONER OPERATOR AUTOMATIC BASIC METABOLIC PANEL, S/P STAT 06/30/2024 6:35 PM GRINDER AND HONER OPERATOR AUTOMATIC GLUCOSE POCT, B Routine 06/27/2024 3:44 PM GRINDER AND HONER OPERATOR AUTOMATIC GLUCOSE POCT, B Routine 06/27/2024 12:02 PM GRINDER AND HONER OPERATOR AUTOMATIC GLUCOSE POCT, B Routine 06/27/2024 7:14 AM GRINDER AND HONER OPERATOR AUTOMATIC TACROLIMUS LEVEL, B Timed 06/27/2024 6:17 AM GRINDER AND HONER OPERATOR AUTOMATIC GLUCOSE POCT, B Routine 06/27/2024 2:10 AM GRINDER AND HONER OPERATOR AUTOMATIC CBC WITH DIFFERENTIAL, B Routine 025 11:34 PM GRINDER AND HONER OPERATOR AUTOMATIC MAGNESIUM, S Routine 06/26/2024 11:34 PM GRINDER AND HONER OPERATOR AUTOMATIC RENAL FUNCTION PANEL, S Routine 06/26/19 11:34 PM GRINDER AND HONER OPERATOR AUTOMATIC GLUCOSE POCT, B Routine 06/26/2024 9:51 PM GRINDER AND HONER OPERATOR AUTOMATIC GLUCOSE POCT, B Routine 06/26/2024 5:51 PM GRINDER AND HONER OPERATOR AUTOMATIC GLUCOSE POCT, B Routine 06/26/2024 12:26 PM GRINDER AND HONER OPERATOR AUTOMATIC GLUCOSE POCT, B Routine 06/26/2024 11:55 AM GRINDER AND HONER OPERATOR AUTOMATIC GLUCOSE POCT, B Routine 06/26/2024 11:29 AM GRINDER AND HONER OPERATOR AUTOMATIC GLUCOSE POCT, B Routine 06/26/2024 7:53 AM GRINDER AND HONER OPERATOR AUTOMATIC TYPE AND SCREEN Timed 06/26/2024 6:59 AM GRINDER AND HONER OPERATOR AUTOMATIC TACROLIMUS LEVEL, B Timed 06/26/2024 6:59 AM GRINDER AND HONER OPERATOR AUTOMATIC RENAL FUNCTION PANEL, S Routine 06/26/19 6:59 AM GRINDER AND HONER OPERATOR AUTOMATIC CBC NO CALL BACK, REFLEX T/S Routine 06/26/2024 6:59 AM GRINDER AND HONER OPERATOR AUTOMATIC GLUCOSE POCT, B Routine 06/26/2024 2:05 AM GRINDER AND HONER OPERATOR AUTOMATIC GLUCOSE POCT, B Routine 06/25/2024 9:35 PM GRINDER AND HONER OPERATOR AUTOMATIC GLUCOSE POCT, B Routine 06/25/2024 6:41 PM GRINDER AND HONER OPERATOR AUTOMATIC GLUCOSE POCT, B Routine 06/25/2024 12:18 PM GRINDER AND HONER OPERATOR AUTOMATIC GLUCOSE POCT, B Routine 06/25/2024 7:46 AM GRINDER AND HONER OPERATOR AUTOMATIC TACROLIMUS LEVEL, B Timed 06/25/2024 7:14 AM GRINDER AND HONER OPERATOR AUTOMATIC RENAL FUNCTION PANEL, S Routine 06/25/19 5:27 AM GRINDER AND HONER OPERATOR AUTOMATIC CBC NO CALL BACK, REFLEX T/S Routine 06/25/2024 5:27 AM GRINDER AND HONER OPERATOR AUTOMATIC HEPATIC FUNCTION PANEL, S Routine 06/25/2024 5:27 AM GRINDER AND HONER OPERATOR AUTOMATIC GLUCOSE POCT, B Routine 06/25/2024 2:06 AM GRINDER AND HONER OPERATOR AUTOMATIC GLUCOSE POCT, B Routine 06/24/2024 8:40 PM GRINDER AND HONER OPERATOR AUTOMATIC GLUCOSE POCT, B Routine 06/24/2024 7:22 PM GRINDER AND HONER OPERATOR AUTOMATIC GLUCOSE POCT, B Routine 06/24/2024 4:40 PM GRINDER AND HONER OPERATOR AUTOMATIC GLUCOSE POCT, B Routine 06/24/2024 11:57 AM GRINDER AND HONER OPERATOR AUTOMATIC BASIC METABOLIC PANEL, S/P Timed 06/24/2024 8:13 AM GRINDER AND HONER OPERATOR AUTOMATIC MAGNESIUM, S Timed 06/24/2024 8:13 AM GRINDER AND HONER OPERATOR AUTOMATIC PHOSPHORUS (INORGANIC), S Timed 06/24/2024 8:13 AM GRINDER AND HONER OPERATOR AUTOMATIC GLUCOSE POCT, B Routine 06/24/2024 8:07 AM GRINDER AND HONER OPERATOR AUTOMATIC PHOSPHORUS (INORGANIC), S Timed 06/24/2024 5:23 AM GRINDER AND HONER OPERATOR AUTOMATIC MAGNESIUM, S Timed 06/24/2024 5:23 AM GRINDER AND HONER OPERATOR AUTOMATIC CBC NO CALL BACK, REFLEX T/S Timed 06/24/2024 5:23 AM GRINDER AND HONER OPERATOR AUTOMATIC TACROLIMUS LEVEL, B Timed 06/24/2024 5:23 AM GRINDER AND HONER OPERATOR AUTOMATIC BASIC METABOLIC PANEL, S/P Timed 06/24/2024 5:23 AM GRINDER AND HONER OPERATOR AUTOMATIC HEPATIC FUNCTION PANEL, S Timed 06/24/2024 5:23 AM GRINDER AND HONER OPERATOR AUTOMATIC GLUCOSE POCT, B Routine 06/24/2024 5:21 AM GRINDER AND HONER OPERATOR AUTOMATIC GLUCOSE POCT, B Routine 06/24/2024 2:33 AM GRINDER AND HONER OPERATOR AUTOMATIC GLUCOSE POCT, B Routine 06/23/2024 11:44 PM GRINDER AND HONER OPERATOR AUTOMATIC GLUCOSE POCT, B Routine 06/23/2024 10:01 PM GRINDER AND HONER OPERATOR AUTOMATIC BETA-HYDROXYBUTYRATE, S Timed 06/23/19 25 10:01 PM GRINDER AND HONER OPERATOR AUTOMATIC BASIC METABOLIC PANEL, S/P Timed 06/23/2024 10:01 PM GRINDER AND HONER OPERATOR AUTOMATIC PHOSPHORUS (INORGANIC), S Routine 06/23/2024 9:57 PM GRINDER AND HONER OPERATOR AUTOMATIC MAGNESIUM, S Routine 06/23/2024 9:57 PM GRINDER AND HONER OPERATOR AUTOMATIC GLUCOSE POCT, B Routine 06/23/2024 6:56 PM GRINDER AND HONER OPERATOR AUTOMATIC GLUCOSE POCT, B Routine 06/23/2024 5:14 PM GRINDER AND HONER OPERATOR AUTOMATIC BASIC METABOLIC PANEL, S/P Timed 06/23/2024 4:31 PM GRINDER AND HONER OPERATOR AUTOMATIC GLUCOSE POCT, B Routine 06/23/2024 4:13 PM GRINDER AND HONER OPERATOR AUTOMATIC GLUCOSE POCT, B Routine 06/23/2024 3:09 PM GRINDER AND HONER OPERATOR AUTOMATIC GLUCOSE POCT, B Routine 06/23/2024 2:09 PM GRINDER AND HONER OPERATOR AUTOMATIC PH BLOOD GAS Timed 06/23/2024 1:14 PM GRINDER AND HONER OPERATOR AUTOMATIC CALCIUM, IONIZED, S/B Timed 06/23/2024 1:14 PM GRINDER AND HONER OPERATOR AUTOMATIC CBC WITH DIFFERENTIAL, B Timed 025 1:14 PM GRINDER AND HONER OPERATOR AUTOMATIC GLUCOSE POCT, B Routine 06/23/2024 1:13 PM GRINDER AND HONER OPERATOR AUTOMATIC BASIC METABOLIC PANEL, S/P Timed 06/23/2024 12:26 PM GRINDER AND HONER OPERATOR AUTOMATIC GLUCOSE POCT, B Routine 06/23/2024 12:01 PM GRINDER AND HONER OPERATOR AUTOMATIC LACTATE FOR SEPSIS WITH REFLEX STAT 06/23/2024 10:19 AM GRINDER AND HONER OPERATOR AUTOMATIC GLUCOSE POCT, B Routine 06/23/2024 10:17 AM GRINDER AND HONER OPERATOR AUTOMATIC GLUCOSE, FASTING, S/P Timed 06/23/2024 8:13 AM GRINDER AND HONER OPERATOR AUTOMATIC C-PEPTIDE, S Timed 06/23/2024 8:13 AM GRINDER AND HONER OPERATOR AUTOMATIC BASIC METABOLIC PANEL, S/P Timed 06/23/2024 8:12 AM GRINDER AND HONER OPERATOR AUTOMATIC GLUCOSE POCT, B Routine 06/23/2024 8:07 AM GRINDER AND HONER OPERATOR AUTOMATIC GLUCOSE POCT, B Routine 06/23/2024 6:10 AM GRINDER AND HONER OPERATOR AUTOMATIC PATIENT STATUS, ABG Timed 06/23/2024 5:18 AM GRINDER AND HONER OPERATOR AUTOMATIC ABG W/COOX Timed 06/23/2024 5:18 AM GRINDER AND HONER OPERATOR AUTOMATIC CBC WITH DIFFERENTIAL, B Timed 025 5:17 AM GRINDER AND HONER OPERATOR AUTOMATIC TACROLIMUS LEVEL, B Timed 06/23/2024 5:17 AM GRINDER AND HONER OPERATOR AUTOMATIC HEPATIC FUNCTION PANEL, S Timed 06/23/2024 5:17 AM GRINDER AND HONER OPERATOR AUTOMATIC PHOSPHORUS (INORGANIC), S Timed 06/23/2024 5:17 AM GRINDER AND HONER OPERATOR AUTOMATIC MAGNESIUM, S Timed 06/23/2024 5:17 AM GRINDER AND HONER OPERATOR AUTOMATIC BASIC METABOLIC PANEL, S/P Timed 06/23/2024 5:17 AM GRINDER AND HONER OPERATOR AUTOMATIC GLUCOSE POCT, B Routine 06/23/2024 5:07 AM GRINDER AND HONER OPERATOR AUTOMATIC GLUCOSE POCT, B Routine 06/23/2024 3:59 AM GRINDER AND HONER OPERATOR AUTOMATIC GLUCOSE POCT, B Routine 06/23/2024 3:00 AM GRINDER AND HONER OPERATOR AUTOMATIC GLUCOSE POCT, B Routine 06/23/2024 2:01 AM GRINDER AND HONER OPERATOR AUTOMATIC GLUCOSE POCT, B Routine 06/23/2024 1:01 AM GRINDER AND HONER OPERATOR AUTOMATIC PATIENT STATUS, ABG Timed 06/23/2024 12:33 AM GRINDER AND HONER OPERATOR AUTOMATIC ABG W/COOX Timed 06/23/2024 12:33 AM GRINDER AND HONER OPERATOR AUTOMATIC PH BLOOD GAS Timed 06/23/2024 12:32 AM GRINDER AND HONER OPERATOR AUTOMATIC PHOSPHORUS (INORGANIC), S Timed 06/23/2024 12:32 AM GRINDER AND HONER OPERATOR AUTOMATIC MAGNESIUM, S Timed 06/23/2024 12:32 AM GRINDER AND HONER OPERATOR AUTOMATIC BASIC METABOLIC PANEL, S/P Timed 06/23/2024 12:32 AM GRINDER AND HONER OPERATOR AUTOMATIC CALCIUM, IONIZED, S/B Timed 06/23/2024 12:32 AM GRINDER AND HONER OPERATOR AUTOMATIC GLUCOSE POCT, B Routine 06/23/2024 12:00 AM GRINDER AND HONER OPERATOR AUTOMATIC GLUCOSE POCT, B Routine 06/22/2024 11:00 PM GRINDER AND HONER OPERATOR AUTOMATIC GLUCOSE POCT, B Routine 06/22/2024 9:55 PM GRINDER AND HONER OPERATOR AUTOMATIC CBC WITH DIFFERENTIAL, B Timed 025 9:55 PM GRINDER AND HONER OPERATOR AUTOMATIC GLUCOSE POCT, B Routine 06/22/2024 9:00 PM GRINDER AND HONER OPERATOR AUTOMATIC PH BLOOD GAS Timed 06/22/2024 8:37 PM GRINDER AND HONER OPERATOR AUTOMATIC CALCIUM, IONIZED, S/B Timed 06/22/2024 8:37 PM GRINDER AND HONER OPERATOR AUTOMATIC PATIENT STATUS, ABG Timed 06/22/2024 8:36 PM GRINDER AND HONER OPERATOR AUTOMATIC PHOSPHORUS (INORGANIC), S Timed 06/22/2024 8:36 PM GRINDER AND HONER OPERATOR AUTOMATIC MAGNESIUM, S Timed 06/22/2024 8:36 PM GRINDER AND HONER OPERATOR AUTOMATIC ABG W/COOX Timed 06/22/2024 8:36 PM GRINDER AND HONER OPERATOR AUTOMATIC BASIC METABOLIC PANEL, S/P Timed 06/22/2024 8:36 PM GRINDER AND HONER OPERATOR AUTOMATIC GLUCOSE POCT, B Routine 06/22/2024 8:00 PM GRINDER AND HONER OPERATOR AUTOMATIC GLUCOSE POCT, B Routine 06/22/2024 7:00 PM GRINDER AND HONER OPERATOR AUTOMATIC GLUCOSE POCT, B Routine 06/22/2024 6:07 PM GRINDER AND HONER OPERATOR AUTOMATIC GLUCOSE POCT, B Routine 06/22/2024 5:00 PM GRINDER AND HONER OPERATOR AUTOMATIC PATIENT STATUS, ABG Timed 06/22/2024 4:50 PM GRINDER AND HONER OPERATOR AUTOMATIC ABG W/COOX Timed 06/22/2024 4:50 PM GRINDER AND HONER OPERATOR AUTOMATIC PHOSPHORUS (INORGANIC), S Timed 06/22/2024 4:48 PM GRINDER AND HONER OPERATOR AUTOMATIC MAGNESIUM, S Timed 06/22/2024 4:48 PM GRINDER AND HONER OPERATOR AUTOMATIC CBC WITH DIFFERENTIAL, B Timed 025 4:48 PM GRINDER AND HONER OPERATOR AUTOMATIC BASIC METABOLIC PANEL, S/P Timed 06/22/2024 4:48 PM GRINDER AND HONER OPERATOR AUTOMATIC GLUCOSE POCT, B Routine 06/22/2024 4:10 PM GRINDER AND HONER OPERATOR AUTOMATIC GLUCOSE POCT, B Routine 06/22/2024 3:01 PM GRINDER AND HONER OPERATOR AUTOMATIC GLUCOSE POCT, B Routine 06/22/2024 2:05 PM GRINDER AND HONER OPERATOR AUTOMATIC GLUCOSE POCT, B Routine 06/22/2024 1:03 PM GRINDER AND HONER OPERATOR AUTOMATIC GLUCOSE POCT, B Routine 06/22/2024 12:00 PM GRINDER AND HONER OPERATOR AUTOMATIC GLUCOSE POCT, B Routine 06/22/2024 11:06 AM GRINDER AND HONER OPERATOR AUTOMATIC BACTERIA / RAUDEL CULTURE, BLOOD STAT 06/22/2024 11:01 AM GRINDER AND HONER OPERATOR AUTOMATIC LACTATE FOR SEPSIS WITH REFLEX STAT 06/22/2024 10:52 AM GRINDER AND HONER OPERATOR AUTOMATIC CBC WITH DIFFERENTIAL, B STAT 025 10:52 AM GRINDER AND HONER OPERATOR AUTOMATIC PATIENT STATUS, ABG STAT 06/22/2024 10:52 AM GRINDER AND HONER OPERATOR AUTOMATIC ABG W/COOX STAT 06/22/2024 10:52 AM GRINDER AND HONER OPERATOR AUTOMATIC PHOSPHORUS (INORGANIC), S STAT 06/22/2024 10:52 AM GRINDER AND HONER OPERATOR AUTOMATIC MAGNESIUM, S STAT 06/22/2024 10:52 AM GRINDER AND HONER OPERATOR AUTOMATIC BASIC METABOLIC PANEL, S/P STAT 06/22/2024 10:52 AM GRINDER AND HONER OPERATOR AUTOMATIC BACTERIA / RAUDEL CULTURE, BLOOD STAT 06/22/2024 10:45 AM GRINDER AND HONER OPERATOR AUTOMATIC DX ABDOMEN PORTABLE ANTERIOR POSTERIOR 1 VIEW RAD - Routine (most inpatients and all outpatients) 06/22/2024 10:24 AM GRINDER AND HONER OPERATOR AUTOMATIC GLUCOSE POCT, B Routine 06/22/2024 10:01 AM GRINDER AND HONER OPERATOR AUTOMATIC ECG Routine 06/22/2024 9:27 AM GRINDER AND HONER OPERATOR AUTOMATIC GLUCOSE POCT, B Routine 06/22/2024 9:02 AM GRINDER AND HONER OPERATOR AUTOMATIC GLUCOSE POCT, B Routine 06/22/2024 8:06 AM GRINDER AND HONER OPERATOR AUTOMATIC GLUCOSE POCT, B Routine 06/22/2024 7:03 AM GRINDER AND HONER OPERATOR AUTOMATIC PATIENT STATUS, ABG Timed 06/22/2024 5:51 AM GRINDER AND HONER OPERATOR AUTOMATIC ABG W/COOX Timed 06/22/2024 5:51 AM GRINDER AND HONER OPERATOR AUTOMATIC TACROLIMUS LEVEL, B Timed 06/22/2024 5:51 AM GRINDER AND HONER OPERATOR AUTOMATIC GLUCOSE POCT, B Routine 06/22/2024 5:50 AM GRINDER AND HONER OPERATOR AUTOMATIC GLUCOSE POCT, B Routine 06/22/2024 5:14 AM GRINDER AND HONER OPERATOR AUTOMATIC PLACE ARTERIAL CATHETER Routine 06/22/19 4:49 AM GRINDER AND HONER OPERATOR AUTOMATIC DRUG SCREEN URINE Routine 06/22/2024 4:29 AM GRINDER AND HONER OPERATOR AUTOMATIC MRSA/STAPHYLOCOCCUS AUREUS, NASAL, BY PCR Routine 06/22/2024 4:29 AM GRINDER AND HONER OPERATOR AUTOMATIC LACTATE, B/P Timed 06/22/2024 4:23 AM GRINDER AND HONER OPERATOR AUTOMATIC CBC WITHOUT DIFFERENTIAL, B Timed 06/22/2024 4:23 AM GRINDER AND HONER OPERATOR AUTOMATIC PHOSPHORUS (INORGANIC), S Timed 06/22/2024 4:23 AM GRINDER AND HONER OPERATOR AUTOMATIC MAGNESIUM, S Timed 06/22/2024 4:23 AM GRINDER AND HONER OPERATOR AUTOMATIC ELECTROLYTE (CHEM 4) PANEL, S/P Timed 06/22/2024 4:23 AM GRINDER AND HONER OPERATOR AUTOMATIC GLUCOSE POCT, B Routine 06/22/2024 4:21 AM GRINDER AND HONER OPERATOR AUTOMATIC GLUCOSE POCT, B Routine 06/22/2024 3:16 AM GRINDER AND HONER OPERATOR AUTOMATIC PATIENT STATUS, ABG Timed 06/22/2024 2:03 AM GRINDER AND HONER OPERATOR AUTOMATIC ABG W/COOX Timed 06/22/2024 2:03 AM GRINDER AND HONER OPERATOR AUTOMATIC GLUCOSE POCT, B Routine 06/22/2024 2:00 AM GRINDER AND HONER OPERATOR AUTOMATIC GLUCOSE POCT, B Routine 06/22/2024 1:38 AM GRINDER AND HONER OPERATOR AUTOMATIC PATIENT STATUS STAT 06/22/2024 12:53 AM GRINDER AND HONER OPERATOR AUTOMATIC VENOUS BLOOD GAS W/COOX, B STAT 06/22/2024 12:53 AM GRINDER AND HONER OPERATOR AUTOMATIC GLUCOSE POCT, B Routine 06/22/2024 12:43 AM GRINDER AND HONER OPERATOR AUTOMATIC PLACE ARTERIAL CATHETER Routine 06/21/19 11:45 PM GRINDER AND HONER OPERATOR AUTOMATIC PATIENT STATUS, ABG STAT 06/21/2024 11:42 PM GRINDER AND HONER OPERATOR AUTOMATIC ABG W/COOX STAT 06/21/2024 11:42 PM GRINDER AND HONER OPERATOR AUTOMATIC FIBRINOGEN, P STAT 06/21/2024 11:40 PM GRINDER AND HONER OPERATOR AUTOMATIC THYROID FUNCTION CASCADE, S STAT 06/21/2024 11:40 PM GRINDER [employer] HONER OPERATOR AUTOMATIC LACTATE, B/P STAT 06/21/2024 11:40 PM [employer]INDER [employer] HONER OPERATOR AUTOMATIC ACTIVATED PARTIAL THROMBOPLASTIN TIME (APTT), P STAT 06/21/2024 11:40 PM GRINDER [employer] HONER OPERATOR AUTOMATIC PROTHROMBIN TIME (PT), P STAT 11:40 PM GRINDER AND HONER OPERATOR AUTOMATIC SPSMA RESULT STAT 06/21/2024 11:25 PM GRINDER AND HONER OPERATOR AUTOMATIC OSMOLALITY, S STAT 06/21/2024 11:25 PM GRINDER AND HONER OPERATOR AUTOMATIC TACROLIMUS LEVEL, B STAT 06/21/2024 11:25 PM GRINDER AND HONER OPERATOR AUTOMATIC AMYLASE, ISOENZYMES, S STAT 11:25 PM GRINDER AND HONER OPERATOR AUTOMATIC BILIRUBIN DIRECT, S/P STAT 06/21/2024 11:25 PM GRINDER [employer] HONER OPERATOR AUTOMATIC BILIRUBIN, TOT, S/P STAT 06/21/2024 11:25 PM GRINDER AND HONER OPERATOR AUTOMATIC ASPARTATE AMINOTRANSFERASE (AST), S/P STAT 06/21/2024 11:25 PM GRINDER AND HONER OPERATOR AUTOMATIC ALANINE AMINOTRANSFERASE (ALT), S/P STAT 06/21/2024 11:25 PM GRINDER AND HONER OPERATOR AUTOMATIC ALKALINE PHOSPHATASE, S/P STAT 06/21/2024 11:25 PM GRINDER AND HONER OPERATOR AUTOMATIC LIPASE, S/P STAT 06/21/2024 11:25 PM GRINDER AND HONER OPERATOR AUTOMATIC PHOSPHORUS (INORGANIC), S STAT 06/21/2024 11:25 PM GRINDER AND HONER OPERATOR AUTOMATIC MAGNESIUM, S STAT 06/21/2024 11:25 PM GRINDER AND HONER OPERATOR AUTOMATIC ELECTROLYTE (CHEM 4) PANEL, S/P STAT 06/21/2024 11:25 PM GRINDER AND HONER OPERATOR AUTOMATIC CBC WITH DIFFERENTIAL, B STAT 025 11:25 PM GRINDER AND HONER OPERATOR AUTOMATIC PHOSPHORUS (INORGANIC), S STAT 06/21/2024 11:25 PM GRINDER AND HONER OPERATOR AUTOMATIC AMMONIA STAT 06/21/2024 11:23 PM GRINDER AND HONER OPERATOR AUTOMATIC CORTISOL, S Routine 06/21/2024 11:19 PM GRINDER AND HONER OPERATOR AUTOMATIC TYPE AND SCREEN STAT 06/21/2024 11:19 PM GRINDER AND HONER OPERATOR AUTOMATIC MC ANE CENTRAL LINE GENERIC PERFORMABLE Routine 06/21/2024 11:13 PM GRINDER AND HONER OPERATOR AUTOMATIC Diabetes Mellitus Type 1 With Ketoacidosis Without Coma (HCC) LDA ANE CENTRAL LINE QUADRUPLE LUMEN Routine 06/21/2024 11:13 PM GRINDER AND HONER OPERATOR AUTOMATIC Diabetes Mellitus Type 1 With Ketoacidosis Without Coma (HCC) FL US GUIDE VASC ACCESS Routine 06/21/19 11:13 PM GRINDER AND HONER OPERATOR AUTOMATIC Diabetes Mellitus Type 1 With Ketoacidosis Without Coma (HCC) FL INS NON-ALEN CVC >5YR Routine 06/21/19 11:13 PM GRINDER AND HONER OPERATOR AUTOMATIC Diabetes Mellitus Type 1 With Ketoacidosis Without Coma (HCC) CRITICAL CARE Routine 06/21/2024 11:00 PM GRINDER AND HONER OPERATOR AUTOMATIC PULMONARY AND CC MEDICINE IMAGE EXAM Routine 06/21/2024 10:25 PM GRINDER AND HONER OPERATOR AUTOMATIC GLUCOSE POCT, B Routine 06/21/2024 10:14 PM GRINDER AND HONER OPERATOR AUTOMATIC CT ABDOMEN PELVIS WITH IV CONTRAST RAD - Semiurgent (Fast; most ED patients; some inpatients) 06/21/2024 9:18 PM GRINDER AND HONER OPERATOR AUTOMATIC CT CHEST WITH IV CONTRAST RAD - Semiurgent (Fast; most ED patients; some inpatients) 06/21/2024 9:18 PM GRINDER AND HONER OPERATOR AUTOMATIC CT HEAD WITHOUT IV CONTRAST RAD - Semiurgent (Fast; most ED patients; some inpatients) 06/21/2024 9:18 PM GRINDER AND HONER OPERATOR AUTOMATIC PROTHROMBIN TIME (PT), P STAT 025 8:29 PM GRINDER AND HONER OPERATOR AUTOMATIC DX CHEST PORTABLE 1 VIEW RAD - Semiurgent (Fast; most ED patients; some inpatients) 06/21/2024 8:29 PM GRINDER AND HONER OPERATOR AUTOMATIC HUMAN CHORIONIC GONADOTROPIN (HCG), EDDI, STAT 06/21/2024 8:28 PM GRINDER AND HONER OPERATOR AUTOMATIC BASIC METABOLIC PANEL, S/P STAT 06/21/2024 8:28 PM GRINDER AND HONER OPERATOR AUTOMATIC CBC WITH DIFFERENTIAL, B STAT 025 8:28 PM GRINDER AND HONER OPERATOR AUTOMATIC LACTATE, POCT, B Routine 06/21/2024 8:27 PM GRINDER AND HONER OPERATOR AUTOMATIC VBG & LYTES CG8+, POCT, B STAT 06/21/2024 8:27 PM GRINDER AND HONER OPERATOR AUTOMATIC ECG STAT 06/21/2024 8:26 PM GRINDER AND HONER OPERATOR AUTOMATIC GLUCOSE POCT, B STAT 06/21/2024 8:26 PM GRINDER AND HONER OPERATOR AUTOMATIC ETHYLENE GLYCOL, S STAT 06/21/2024 8:26 PM GRINDER AND HONER OPERATOR AUTOMATIC T4 (THYROXINE), TOT ONLY, S STAT 06/21/2024 8:25 PM GRINDER AND HONER OPERATOR AUTOMATIC ACETAMINOPHEN LEVEL, S STAT 8:25 PM GRINDER AND HONER OPERATOR AUTOMATIC LIPASE, S/P STAT 06/21/2024 8:25 PM GRINDER AND HONER OPERATOR AUTOMATIC THYROID-STIMULATING HORMONE-SENSITIVE (S-TSH) STAT 06/21/2024 8:25 PM GRINDER AND HONER OPERATOR AUTOMATIC BETA-HYDROXYBUTYRATE, S STAT 06/21/19 25 8:25 PM GRINDER AND HONER OPERATOR AUTOMATIC HEPATIC FUNCTION PANEL, S STAT 06/21/2024 8:25 PM GRINDER AND HONER OPERATOR AUTOMATIC VOLATILE SCRN, S STAT 06/21/2024 8:25 PM GRINDER AND HONER OPERATOR AUTOMATIC ETHANOL, S STAT 06/21/2024 8:25 PM GRINDER AND HONER OPERATOR AUTOMATIC HIV-1/-2 AG AND AB SCREEN, PLASMA STAT 10/10/2022 11:31 AM CDT HPV WITH GENOTYPING, PCR, THINPREP Routine 06/25/2022 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 M.S. PROCEDURE/MINOR SURGICAL ORDERABLES Final Result MMODAL NA * (ABNORMAL) CBC no call back, reflex T/S HGB <8 (09/13/2024 12:18 PM CDT) Only the most recent of4 resultswithin the time period is included. Hemoglobin 13.1 11.6 - 15.0 g/dL 09/13/2024 12:45 PM CDT DTL Hematocrit 37.8 35.5 - 44.9 % 09/13/2024 12:45 PM CDT DTL Erythrocytes 4.42 3.92 - 5.13 x10(12)/L 09/13/2024 12:45 PM CDT DTL MCV 85.5 78.2 - 97.9 fL 09/13/2024 12:45 PM CDT DTL RBC Distrib Width 11.9(L) 12.2 - 16.1 % 09/13/2024 12:45 PM CDT DTL Platelet Count 212 157 - 371 x10(9)/L 09/13/2024 12:45 PM CDT DTL Leukocytes 4.9 3.4 - 9.6 x10(9)/L 09/13/2024 12:45 PM CDT DTL Neutrophils 4.10 1.56 - 6.45 x10(9)/L 09/13/2024 12:45 PM CDT DHPM Lymphocytes 0.58(L) 0.95 - 3.07 x10(9)/L 09/13/2024 12:45 PM CDT DTL Monocytes 0.17(L) 0.26 - 0.81 x10(9)/L 09/13/2024 12:45 PM CDT DTL Eosinophils 0.04 0.03 - 0.48 x10(9)/L 09/13/2024 12:45 PM CDT DTL Basophils 0.03 0.01 - 0.08 x10(9)/L 09/13/2024 12:45 PM CDT DTL Blood (Blood, Venous) 09/13/2024 12:18 PM CDT 09/13/2024 12:26 PM CDT us Juan Pete M.D. LAB BLOOD NON ADD-ON Final Res ult Performing Organization Address City/[facility]/ZIP Co de Phone Number [facility] [place] [address] [place] [address], [facility] DTL [facility] [address] [place] [address] [facility]3] [address] [place] [address] * CMV DNA Detect / Quant, Plasma (09/13/2024 12:18 PM CDT) Only the most recent of2 resultswithin the time period is included. [facility] CMV DNA Detect/Quant, P Undetected Undetected IU/mL 09/13/2024 10:14 PM CDT SDSC Comment: Result in log IU/mL is Undetected. ----ADDITIONAL INFORMATION---- The quantification range of this assay is 35 to 10,000,000 IU/mL (1.54 log to 7.00 log IU/mL). Testing was performed using the john CMV test ([employer] Blood (Blood, Venous) 09/13/2024 12:18 PM CDT 09/13/2024 4:53 PM CDT us Marisabel Carpenter APRN, C.N.P., D.N.P. LAB MICROBIOL OGY - BLOOD ORDERABLES Final Result Performing Organization Address City/[facility] Co de Phone Number [facility] SUPPORT ESTELL MANOR [address] [place] [address] [facility] [address] [place] [address] [place] [address] * (ABNORMAL) Quantitative Lymphocyte Subsets: T, B, and Natural Killer (NK) (09/13/2024 12:18 PM CDT) [facility] CD45 Total Lymph Count 0.49(L) 0.82 - 2.84 thou/mcL 09/13/2024 9:56 PM CDT SDSC % CD3 (T Cells) 82 58 - 86 % 9:56 PM CDT SDSC CD3 (T Cells) 402(L) 550 - 2202 cells/mcL 09/13/2024 9:56 PM CDT SDSC % CD4 (T Cells) 26(L) 32 - 64 % 9:56 PM CDT SDSC CD4 (T Cells) 130(L) 365 - 1437 cells/mcL 09/13/2024 9:56 PM CDT SDSC % CD8 (T Cells) 53(H) 15 - 40 % 9:56 PM CDT SDSC CD8 T Cells 260 171 - 846 cells/mcL 09/13/2024 9:56 PM CDT SDSC % CD19 (B Cells) 17 7 - 24 % 09/14/19 25 9:56 PM CDT SDSC CD19 (B Cells) 83 81 - 409 cells/mcL 09/13/2024 9:56 PM CDT SDSC % CD16+CD56 (NK cells) 1(L) 4 - 28 % 09/13/2024 9:56 PM CDT SDSC CD16+CD56 (NK cells) 3(L) 59 - 513 cells/mcL 09/13/2024 9:56 PM CDT SDSC 4/8 Ratio 0.5(L) >=0.9 09/13/2024 9:56 PM CDT SDSC Comment: ----ADDITIONAL INFORMATION---- This test was developed using an analyte specific reagent. Its performance characteristics were determined by [facility] in a manner consistent with CLIA requirements. This test has not been cleared or approved by the U.S. Food and Drug Administration. Blood (Blood, Venous) 09/13/2024 12:18 PM CDT 09/13/2024 2:49 PM CDT Juan Pete M.D. LAB BLOOD ADD-ON Final Result [facility] SUPPORT ESTELL MANOR [address] [place] [address] [facility] [address] [place] [address] [place] [address] * (ABNORMAL) Bilirubin, Direct (09/13/2024 12:18 PM CDT) Only the most recent of5 resultswithin the time period is included. [facility] Bilirubin, Direct, S 0.5(H) 0.0 - 0.3 mg/dL 09/13/2024 1:15 PM CDT DTL Blood (Blood, Venous) 09/13/2024 12:18 PM CDT 09/13/2024 12:46 PM CDT us Juan Pete M.D. LAB BLOOD ADD-ON Final Result [facility] [place] [address] [place] [address], [facility] [address] [place] [address] * (ABNORMAL) Comprehensive Metabolic Panel (09/13/2024 12:18 PM CDT) Only the most recent of6 resultswithin the time period is included. Potassium, S 3.9 3.6 - 5.2 mmol/L 09/13/2024 1:15 PM CDT DTL Sodium, S 136 135 - 145 mmol/L 09/13/2024 1:15 PM CDT DTL Chloride, S 103 98 - 107 mmol/L 09/13/2024 1:15 PM CDT DTL Bicarbonate, S 24 22 - 29 mmol/L 09/13/2024 1:15 PM CDT DTL Anion Gap 9 7 - 15 09/13/2024 1:15 PM CDT DTL BUN (Blood Urea Nitrogen), S 10 6 - 21 mg/dL 09/13/2024 1:15 PM CDT DTL Creatinine 0.53(L) 0.59 - 1.04 mg/dL 09/13/2024 1:15 PM CDT DTL Estimated GFR (eGFR) >90 >=60 mL/min/BS A 09/13/2024 1:15 PM CDT DTL Comment: Estimated GFR calculated using the 2020 CKD_EPI creatinine equation. Calcium, Total, S 8.9 8.6 - 10.0 mg/dL 09/13/2024 1:15 PM CDT DTL Glucose, S 415(CH) 70 - 140 mg/dL 09/13/2024 1:15 PM CDT DTL Protein, Total, S 6.4 6.3 - 7.9 g/dL 09/13/2024 1:15 PM CDT DTL Albumin, S 4.1 3.5 - 5.0 g/dL 09/13/2024 1:15 PM CDT DTL Aspartate Aminotransferase (AST), S 55(H) 8 - 43 U/L 09/13/2024 1:15 PM CDT DTL Alkaline Phosphatase, S 354(H) 35 - 104 U/L 09/13/2024 1:15 PM CDT DTL Alanine Aminotransferase (ALT), S 231(H) 7 - 45 U/L 09/13/2024 1:15 PM CDT DTL Bilirubin, Total, S 1.0 0.0 - 1.2 mg/dL 09/13/2024 1:15 PM CDT DTL Blood (Blood, Venous) 09/13/2024 12:18 PM CDT 09/13/2024 12:46 PM CDT Elsie Salcedo P.A.-C., M.S. LAB BLOOD ADD-ON Final R esult Performing Organization Address City/[facility]/ZIP Co de Phone Number [address] [facility] [address] [place] [address] * Patient Status (09/12/2024 2:11 AM CDT) Only the most recent of2 resultswithin the time period is included. FIO2 0.21 0.21=AIR 09/12/2024 2:16 AM CDT STMA Device RA 09/12/2024 2:16 AM CDT STMA Spont. breaths/min 18 09/12/2024 2:16 AM CDT STMA Blood 09/12/2024 2:11 AM CDT 09/12/2024 2:16 AM CDT Hugo Patel M.D. LAB BLOOD NON ADD-ON Final Re sult [facility] [place] [address] [place] [address], [facility] [address] [place] [address] * (ABNORMAL) Blood Gas without Coox, Venous (09/12/2024 2:11 AM CDT) pO2, Venous, B 71 Not applicable mm [...] LAB BLOOD NON ADD-ON Final Re sult [facility] [place] [address] [place] [address], [facility] [address] [place] [address] * CT Chest Angiogram and Pulmonary Arteries [...] liver transplant, splenomegaly, and sequelae of chronicpancreatitis. Hugo Patel M.D. Tristan CT PROCEDURES Final Resul t * Troponin T, Baseline with 2 Hour/6 Hour Reflex Biomarker Panel (09/11/2024 11:55 PM CDT) Troponin T, Baseline, 5th gen <6 <=10 ng/L 09/12/2024 12:54 AM CDT STMA Blood (Blood, Venous) 09/11/2024 11:55 PM CDT 09/12/2024 12:28 AM CDT Hugo Patel M.D. LAB BLOOD TROPONIN Final Resu lt Performing Organization Address City/[facility]/ZIP Co de Phone Number [facility] [place] [address] [place] [address], [facility] [address] [place] [address] * NT-Pro B-Type Natriuretic Peptide (BNP) (09/11/2024 11:55 PM CDT) NT-Pro BNP 77 <160 pg/mL 09/12/2024 3:16 AM CDT [facility] Comment: REVISED RESULTS NT-proBNP values less than [...] CDT us Hugo Patel M.D. LAB BLOOD ADD-ON Edited Resul t - Final Performing Organization Address City/[facility]/ZIP Co de Phone Number [facility] [place] [address] [place] [address], [facility] [address] [place] [address] * (ABNORMAL) CBC with Differential, Blood (09/11/2024 11:55 PM CDT) Only the most recent of24 resultswithin the time period is included. Hemoglobin 12.8 11.6 - 15.0 g/dL 09/12/2024 [...] CDT us Hugo Patel M.D. LAB BLOOD ADD-ON Final Result [facility] [place] [address] [place] [address], [facility] [address] [place] [address] [address] * hCG (Human Chorionic Gonadotropin), Quantitative, (09/11/2024 11:55 PM CDT) Only the most recent of6 resultswithin the time period is included. Pathologist [facility] HCG, Quantitative, , P <1.0 <5 IU/L 09/12/2024 12:54 AM CDT [facility] Blood (Blood, Venous) 09/11/2024 11:55 PM CDT 09/12/2024 12:28 AM CDT Hugo Patel M.D. LAB BLOOD ADD-ON Final Result [address] [address], [address] [address] * (ABNORMAL) Basic Metabolic Panel (09/11/2024 11:55 PM CDT) Only the most recent of27 resultswithin the time period is included. [facility] Potassium, P 3.7 3.6 - 5.2 mmol/L [...] 11:55 PM CDT 09/12/2024 12:37 AM CDT us Hugo Patel M.D. LAB BLOOD ADD-ON Final Result [facility] [place] [address] [place] [address], [place] [facility] [address] [place] [address] * ECG 12 Lead (09/11/2024 11:43 PM CDT) Only the most recent of6 resultswithin the time period is included. Ventricular Rate ECG/Min 90 BPM MUSE FL Interval 150 ms MUSE QRSD Interval 78 ms MUSE QT Interval 364 ms MUSE QTC Interval 445 ms MUSE P [place] 3 degrees MUSE R [place] -1 degrees MUSE T Wave [place] 13 degrees MUSE 09/11/2024 11:4 3 PM [...] Hugo Patel M.D. ECG ORDERABLES Final Result Performing Organization Address City/[facility] Co de Phone Number MUSE NA * Arm-Emergency Medicine Image Exam (09/11/2024 11:30 [...] NON RAD IMAGING PROCE DURES Final Result Performing Organization Address [facility] Co de Phone Number IIMS NA * US Upper Extremity Veins Right [...] and management can be found on the [employer] site. Link [email or web address] Procedure Note Haile Flowers M.D. - 09/12/2024 [...] thrombosis and management can be found on the[employer] site. [email or web address] IMPRESSION: 1. Negative for acute DVT. 2. 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 Xavi Sargent P.A.-C. IMG US PROCEDURES Final R esult * (ABNORMAL) Hepatic Function Panel (09/11/2024 4:47 PM CDT) Only the most recent of15 resultswithin the time period is included. Bilirubin, Total, S 1.3(H) 0.0 - 1.2 [...] 4:47 PM CDT 09/11/2024 5:15 PM CDT Michelle Luz M.D., M.S. LAB BLOOD ADD-ON Final Res ult Performing Organization Address City/[facility]/ZIP Co de Phone Number [facility] [place] [address] [place] [address] * Beta-Hydroxybutyrate (09/11/2024 4:46 PM CDT) Only the most recent of3 resultswithin the time period is included. Beta-Hydroxybut yrate, S <0.1 <0.4 mmol/L 09/12/2024 2:12 AM CDT DTL Blood (Blood, Venous) 09/11/2024 4:46 PM CDT 09/12/2024 1:39 AM CDT Hugo Patel M.D. LAB BLOOD ADD-ON Final Result Performing Organization Address [facility] Co de Phone Number [facility] [place] [address] [place] [address] * Arm, Right-Nursing Image Exam (09/11/2024 3:03 PM CDT) 09/11/2024 3:01 PM CDT Narrative IIMS - 09/11/2024 3:03 PM CDT This order has been created and auto-finalized to support the import of images acquired without order. The clinical documentation to support these images can be found on the encounter that produced images. Provider Not In System IMG NON RAD IMAGING PROCE DURES Final Result Performing Organization Address [facility] Co de Phone Number IIMS NA * (ABNORMAL) Glucose, POCT (09/09/2024 5:06 PM CDT) Only the most recent of136 resultswithin the time period is included. Glucose, POCT, B 198(H) 70 - 140 mg/dL 09/09/2024 5:09 PM CDT PCDE Site Capillary 09/09/2024 5:09 PM CDT PCDE Last Intake 3-4 hours 09/09/2024 5:09 PM CDT PCDE Blood 09/09/2024 5:06 PM CDT 09/09/2024 5:09 PM CDT Unknown Provider LAB POCT ORDERABLES-MANUAL Lupe l Result Performing Organization Address [facility] de Phone Number [facility] [employer] [facility] [address] PCDE [facility]OC [address] [place] [address] * (ABNORMAL) Tacrolimus, Trough (09/09/2024 5:36 AM CDT) Only the most recent of17 resultswithin the time period is included. Tacrolimus, Trough 4.2(L) 5.0-15.0 (Trough) ng/mL 09/09/2024 1:10 PM CDT [facility] Comment: ----ADDITIONAL INFORMATION---- Target steady-state trough concentrations vary depending on the type of transplant, concomitant immunosuppression, clinical/institutional protocols, and time post-transplant. Results should be interpreted in conjunction with this clinical information and any physical signs/symptoms of rejection/toxicity. Testing performed by Liquid Chromatography-Tandem Mass Spectrometry (LC-MS/MS). This test was developed and its performance characteristics determined by [facility] in a manner consistent with CLIA requirements. This test has not been cleared or approved by the U.S. Food and Drug Administration. Blood (Blood, Venous) 09/09/2024 5:36 AM CDT 09/09/2024 8:15 AM CDT us Salima Garcia APRN, C.N.P., D.N.P. LAB BLOOD NON ADD-ON Final Result [facility] [address] [place] [address] [facility] [address] [place] [address] [place] [address] * US Liver Transplant (09/07/2024 10:36 AM CDT) Only the most recent of2 [...] resistiveindices. 3. Mild splenomegaly, slightly improved. Edgar DanielS., M.S. [facility] US PROCEDUR ES Final Result * Prothrombin Time (PT) (09/06/2024 8:30 PM CDT) Only the most recent of6 resultswithin the time period is included. Prothrombin Time, P 10.9 9.4 - 12.5 [...] D.N.P. LAB BLOOD A DD-ON Final Result [facility] [employer] [facility] [address] [place] [address], [place] METH [facility] [address] [place] [address] * (ABNORMAL) CBC without Differential (09/06/2024 8:30 PM CDT) Only the most recent of4 resultswithin the time period is included. Hemoglobin 15.2(H) 11.6 - 15.0 g/dL 09/06/2024 [...] 8:37 PM CDT us Ben Redmond APRN, C.N.P., D.N.P. LAB BLOOD A DD-ON Final Result [facility] [place] [address] [place] [address], [facility] METH [facility] [address] [place] [address] * FL BX NDL LIVER [place], [place] US [employer] NDL (09/05/2024 4:17 PM CDT) Narrative MMODAL - 09/05/2024 4:17 PM CDT Hiro Murillo P.ALupillo. 09/05/2024 4:20 PM TXP liver biopsy Performed by: Hiro Murillo PAshish Authorized by: Migue Escobar M.D. PROCEDURE DETAILS [...] will call with any questions or concerns. Migue Escobar M.D. PROCEDURE/MINOR SURGICAL OR DERABLES Final Result MMODAL NA * Surgical Pathology (09/05/2024 2:31 PM CDT) Only the most recent of2 resultswithin the time period is included. 09/06/2024 9:25 AM CDT DTL Participated in [...] in an addendum. The patient's prior biopsy ([id number]) was reviewed, and this current study demonstrates slightly worsened findings, with interval development of centrilobular injury. Digital imaging was used in the diagnostic assessment of this case. 09/06/2024 2:00 PM CDT DTL Tissue 09/05/2024 2:31 PM CDT 09/05/2024 3:08 PM CDT us Hiro Murillo P.A.-C. LAB SURG PATH ORDERABLES Edited Result - Final Performing Organization Address [facility] de Phone Number [facility] [place] [address] [place] [address] [facility] [address] [place] [address] * Non-Radiology Image-Transplantation Surg Image Exam (09/05/2024 [...] NON RAD IMAGING PROCE DURES Final Result Performing Organization Address [facility] de Phone Number [facility] NA * (ABNORMAL) ALT (Alanine Aminotransferase) (09/05/2024 11:19 AM CDT) Only the most recent of2 resultswithin the time period is included. Alanine Aminotransferase (ALT), S 1094(H) 7 - 45 U/L 09/06/2024 11:17 AM CDT DTL Blood 09/05/2024 11:1 9 AM CDT 09/06/2024 10:25 AM CDT us Migue Escobar M.D. LAB BLOOD ADD-ON Final Resu lt Performing Organization Address [facility] Co de Phone Number [facility] [place] [address] [place] [address], [facility] [address] [place] [address] * (ABNORMAL) AST (Aspartate Aminotransferase) (09/05/2024 11:19 AM CDT) Only the most recent of2 resultswithin the time period is included. Aspartate Aminotransferase (AST), S 841(H) 8 - 43 U/L 09/06/2024 11:17 AM CDT DTL Blood (Blood, Venous) 09/05/2024 11:19 AM CDT 09/06/2024 10:25 AM CDT Migue Escobar M.D. LAB BLOOD ADD-ON Final Resu lt [facility] [place] [address] [place] [address], [facility] [address] [place] [address] * Phosphorus Inorganic (08/24/2024 7:04 AM CDT) Only the most recent of14 resultswithin the time period is included. Phosphorus (Inorganic), S 3.3 2.5 - 4.5 mg/dL 08/24/2024 8:08 AM CDT DT Blood (Blood, Venous) 08/24/2024 7:04 AM CDT 08/24/2024 7:44 AM CDT Barrera Lewis M.D. LAB BLOOD ADD-O N Final Result Performing Organization Address City/[facility]/ZIP Co de Phone Number [facility] [place] [address] [place] [address], [facility] [address] [place] [address] * Magnesium (08/24/2024 7:04 AM CDT) Only the most recent of14 resultswithin the time period is included. Magnesium, S 1.8 1.7 - 2.3 mg/dL 08/24/2024 8:08 AM CDT DTL Blood (Blood, Venous) 08/24/2024 7:04 AM CDT 08/24/2024 7:44 AM CDT Barrera Lewis M.D. LAB BLOOD ADD-O N Final Result [facility] [place] [address] [place] [address], [facility] DTL [facility] [facility] [address] [place] [address] * Phosphatidylethanol Confirmation (08/23/2024 12:22 PM CDT) PEth 16:0/18:1 (POPEth) by LC-MS/MS <10 Cutoff: 10 ng/mL 08/25/2024 1:44 AM CDT [facility] Comment: Phosphatidylethanol (PEth) homologues result [...] Cutoff: 10 ng/mL 08/25/2024 1:44 AM CDT [facility] Comment: PEth 16:0/18:2 (PLPEth) Reference ranges are not well established PEth Interpretation Negative. 08/25 1:44 AM CDT [facility] Comment: ----ADDITIONAL INFORMATION---- This report is intended for use in clinical monitoring and management of patients. It is not intended for use in employment-related testing. This test was developed and its performance characteristics determined by [facility] in a manner consistent with CLIA requirements. This test has not been cleared or approved by the U.S. Food and Drug Administration. Blood (Blood, Venous) 08/23/2024 12:22 PM CDT 08/23/2024 2:46 PM CDT us Celena Rodriguez M.D., M.E. LAB BLOOD ADD-ON Fi nal Result [facility] SUPPORT ESTELL MANOR [address] [place] [address] [facility] [address] [place] [address] [place] [address] * US Liver Transplant Biopsy (08/23/2024 9:09 [...] biopsy IMPRESSION: Ultrasound-guided hepatic allograft biopsy. NR us Amparo Loo M.D. IMG US PROCEDURES Final Result * CT Abdomen Pelvis with IV Contrast (08/21/2024 8:54 PM CDT) Only the most recent of2 [...] acute findings in theabdomen/pelvis. Antonio Olivia M.D. [facility] CT PROCEDURES Final R esult * Peripheral [...] IV THERAPY ORDERABLES Fin al Result * Lactate for Sepsis with Reflex (08/21/2024 6:47 PM CDT) Only the most recent of4 resultswithin the time period is included. Lactate, P 1.1 0.5 - 2.2 mmol/L 08/21/2024 7:07 PM CDT [facility] Blood (Blood, Venous) 08/21/2024 6:47 PM CDT 08/21/2024 6:53 PM CDT Antonio Olivia M.D. LAB BLOOD NON ADD-ON Lupe l Result Performing Organization Address City/[facility]/ZIP Co de Phone Number [facility] [place] [address] [facility] [address] [place] [address] * (ABNORMAL) Lipase (08/21/2024 6:47 PM CDT) Only the most recent of6 resultswithin the time period is included. Lipase, S 10(L) 13 - 60 U/L 08/21/2024 7: 41 PM CDT DTL Blood (Blood, Venous) 08/21/2024 6:47 PM CDT 08/21/2024 7:16 PM CDT Antonio Olivia M.D. LAB BLOOD ADD-ON Final Re sult [facility] [place] [address] [place] [address], [facility] DTL [facility] [address] [place] [address] * Dipstick, Urine (08/19/2024 5:12 AM CDT) Hemoglobin, QL, U Negative Negative 08/19/2024 6:10 AM CDT DTL Leukocyte Esterase, U Negative Negative 08/19/2024 6:10 AM CDT DTL Nitrite, U Negative Negative 08/19/2024 6:10 AM CDT DTL Ketone, U Negative Negative mg/dL 08/19/2024 6:10 AM CDT DTL Glucose, U Negative Negative mg/dL 08/19/2024 6:10 AM CDT DTL Urine 08/19/2024 5:12 AM CDT 08/19/2024 5:41 AM CDT Ember Box M.D., M.S. LAB URINE ORDERABLES Fi nal Result Performing Organization Address [facility] Co de Phone Number [facility] [place] [address] [place], [place] [id number] [place] [address] [facility] [address] [place] [address] * Microscopic Automated (08/19/2024 5:12 AM CDT) Pathologist [facility] [place] Microscopy Normal 08/19/2024 6:10 AM CDT DTL RBC None Seen <3 /hpf 08/19/2024 6:10 AM CDT DTL WBC None Seen /hpf 08/19/2024 6:10 AM CDT DTL Comment: ----REFERENCE VALUE---- <4 (Males) <11 (Females) Urine 08/19/2024 5:12 AM CDT 08/19/2024 5:41 AM CDT Ember Box M.D., M.S. LAB URINE ORDERABLES Fi nal Result Performing Organization Address City/[facility]/ZIP Co de Phone Number [facility] [place] [address] [place], [place] [id number] [place] [address] [facility] [address] [place] [address] * Bacterial Culture, Aerobic + Susceptibility, Urine (08/19/2024 5:12 AM CDT) Urine Culture Organism present <10,000 cfu/mL, susceptibilities not performed per laboratory criteria. 08/20/2024 6:36 AM CDT DTL Urine (Urine, Midstream) 08/19/2024 5:12 AM CDT 08/19/2024 5:49 AM CDT Comment:Specimen Source Site : Urine us Lopez Rodrigues M.D., M.B.A. LAB MICROBIOLOGY - G ENERAL ORDERABLES Final Result Performing Organization Address City/[facility]/[place] [address] * pH, Urine (08/19/2024 5:12 AM CDT) pH, U 6.8 4.5 - 8.0 08/19/2024 6:2 7 AM CDT DTL Urine 08/19/2024 5:12 AM CDT 08/19/2024 5:41 AM CDT us Ember Box M.D., M.S. LAB URINE ORDERABLES Fi nal Result Performing Organization Address City/[facility]/ZIP Co de Phone Number [facility] [place] [address] [place] [address] * (ABNORMAL) Osmolality, Urine (08/19/2024 5:12 AM CDT) Osmolality, U 106(L) 150 - 1150 mOsm/kg 08/19/2024 6:27 AM CDT DTL Urine 08/19/2024 5:12 AM CDT 08/19/2024 5:41 AM CDT us Ember Box M.D., M.S. LAB URINE ORDERABLES Fi nal Result Performing Organization Address [facility] Co de Phone Number [facility] [place] [address] [place] [address], [facility] [address] [place] [address] * (ABNORMAL) Urinalysis, with Microscopic: Urine, Midstream (08/19/2024 5:12 AM CDT) Source Urine, Urine, Midstream 08/19/2024 5:41 AM CDT DTL Color, U Yellow 08/19/2024 5:41 AM CDT DTL Clarity, U Clear 08/19/2024 5:41 AM CDT DTL Protein, U <4 <26 mg/dL 08/19/2024 6:11 AM CDT DTL Protein/Osmol ality <0.38 <0.42 ratio 08/19/2024 6:27 AM CDT DTL Predicted 24 HR Protein, U <276(H) <229 mg/24 h 08/19/2024 6:27 AM CDT DTL Predicted Range <1118 mg/24 h 08/19/2024 6:27 AM CDT DTL Urine (Urine, Midstream) 08/19/2024 5:12 AM CDT 08/19/2024 5:41 AM CDT Lopez Rodrigues M.D., M.B.A. LAB URINE ORDERABLES Final Result Performing Organization Address City/[facility]/ZIP Co de Phone Number [facility] [place] [address] [place] [address], [facility] [address] [place] [address] * CT Abdomen Pelvis without IV Contrast (07/25/2024 10:41 PM CDT) Anatomical Region Laterality Modality Abdomen, Pelvis, Abdominal R ST LOS, Abdominal ARZ LOS, Abdominal FLA LOS N/A Computed Tomograp hy, Computed Tomography Impressions 07/26/2024 4:47 AM CDT 1. No obstructing urinary calculus. 2. Marked diffuse hepatic steatosis. 3. Increased mild splenomegaly. 4. Sequelae of chronic pancreatitis. Narrative 07/26/2024 4:47 AM CDT EXAM: CT ABDOMEN PELVIS WITHOUT IV CONTRAST COMPARISON: CT abdomen pelvis 06/21/2024 FINDINGS: Punctate nonobstructing calculus in the upper pole left kidney. No obstructing urinary calculus. No hydronephrosis. Postoperative changes hepatic allograft. Marked diffuse hepatic steatosis. Cholecystectomy.. Increased mild splenomegaly measuring up to 13.3 cm, previously 10.2 cm on 06/21/2024. Atrophic pancreas with parenchymal calcifications, likely sequelae of chronic pancreatitis. Trace mesenteric edema. Mild diffuse body wall edema. Normal caliber small bowel and colon. Large volume colonic stool. Normal appendix. IUD. Osseous demineralization. Multilevel vertebral body compression deformities, unchanged. Procedure Note Kimmy Ponce M.D. - 07/26/2024 EXAM: CT ABDOMEN PELVIS WITHOUT IV CONTRAST COMPARISON: CT abdomen pelvis 06/21/2024 FINDINGS: Punctate nonobstructing calculus in the upper pole left kidney. Noobstructing urinary calculus. No hydronephrosis. Postoperative changes hepatic allograft. Marked diffuse hepatic steatosis.Cholecystectomy.. Increased mild splenomegaly measuring up to 13.3 cm,previously 10.2 cm on 06/21/2024. Atrophic pancreas with parenchymalcalcifications, likely sequelae of chronic pancreatitis. Trace mesenteric edema. Mild diffuse body walledema. Normal caliber small bowel and colon. Large volume colonic stool. Normalappendix. IUD. Osseous demineralization. Multilevel vertebral bodycompression deformities, unchanged. IMPRESSION: 1. No obstructing urinary calculus. 2. Marked diffuse hepatic steatosis. 3. Increased mild splenomegaly. 4. Sequelae of chronic pancreatitis. us Celena PERALES CT PROCEDURES Final Result * CT Examination Not Performed (07/25/2024 2:51 PM CDT) Anatomical Region Laterality Modality N/A Computed Tomogra phy, Computed Tomography Impressions 07/25/2024 2:57 PM CDT Patient refused the examination. No examination performed. No images acquired. Narrative 07/25/2024 2:57 PM CDT EXAM: CT EXAMINATION NOT PERFORMED Procedure Note Ty Gutiérrez M.D. - 07/25/2024 EXAM: CT EXAMINATION NOT PERFORMED IMPRESSION: Patient refused the examination. No examination performed. No imagesacquired. us Jose Luis Scott M.D. IMG CT PROCEDURES Final Resu lt * S-TSH (Thyroid-Stimulating Hormone - Sensitive) (07/25/2024 1:33 PM CDT) Only the most recent of2 resultswithin the time period is included. TSH, Sensitive 0.5 0.3 - 4.2 mIU/L 07/25/2024 2:35 PM CDT DTL Blood (Blood, Venous) 07/25/2024 1:33 PM CDT 07/25/2024 1:55 PM CDT Jose Luis Scott M.D. LAB BLOOD ADD-ON Final Resul t Performing Organization Address [facility]/ZIP Co de Phone Number [facility] [place] [address] DTL [facility] [address] [place] [address] * (ABNORMAL) Lactate (06/30/2024 6:35 PM [employer]PER[employer]) Only the most recent of3 resultswithin the time period is included. Lactate, P 2.3(H) 0.5 - 2.2 mmol/L 06/30/2024 7:01 PM [employer] [facility] Blood (Blood, Venous) 06/30/2024 6:35 PM [employer] 06/30/2024 6:48 PM [employer] Jessy Knight M.D., M.S. LAB BLOOD NON ADD-ON Final Result Performing Organization Address City/[facility]/ZIP Co de Phone Number [facility] [place] [address] [facility] [address] [place] [address] * (ABNORMAL) Renal Function Panel (06/26/2024 11:34 PM [employer]) Only the most recent of3 resultswithin the time period is included. Potassium, S 4.0 3.6 - 5.2 mmol/L 06/27/2024 1:04 AM [employer] DTL Sodium, S 142 135 - 145 mmol/L 06/27/2024 1:04 AM [employer] DTL Chloride, S 109(H) 98 - 107 mmol/L 06/27/2024 1:04 AM [employer] DTL Bicarbonate, S 22 22 - 29 mmol/L 06/27/2024 1:04 AM [employer] DTL Anion Gap 11 7 - 15 06/27/2024 1:04 AM [employer] DTL BUN (Blood Urea Nitrogen), S 3(L) 6 - 21 mg/dL 06/27/2024 1:04 AM [employer] DTL Creatinine 0.55(L) 0.59 - 1.04 mg/dL 06/27/2024 1:04 AM [employer] DTL Estimated GFR (eGFR) >90 >=60 mL/min/BSA 06/27/2024 1:04 AM [employer]PER[employer] DTL Comment: Estimated GFR calculated using the 2020 CKD_EPI creatinine equation. Calcium, Total, S 8.6 8.6 - 10.0 mg/dL 06/27/2024 1:04 AM [employer] O[employer] DTL Glucose, S 196(H) 70 - 140 mg/dL 06/27/2024 1:04 AM [employer] OPER[employer] DTL Albumin, S 3.6 3.5 - 5.0 g/dL 06/27/2024 1:04 AM [employer] OPER[employer] DTL Phosphorus (Inorganic), S 3.0 2.5 - 4.5 mg/dL 06/27/2024 1:04 AM [employer] DTL Blood (Blood, Venous) 06/26/2024 11:34 PM [employer] 06/27/2024 12:48 AM [employer] us Juliane Pfeiffer P.A.-C. LAB BLOOD ADD-ON Final Result [facility] [place] [address] [place] [address], [facility] DTL [facility] [address] [place] [address] * Type and Screen (with Reflex Antibody ID) (06/26/2024 6:59 AM [employer] OPER[employer]) Only the most recent of2 resultswithin the time period is included. ABORh B Pos Not applicable 06/26/2024 7:45 AM [employer] ETRM Antibody Screen Negative Negative 06/26/2024 7:59 AM [employer] ETRM Type & Screen Expiration 06/29/2024 23:59 06/26/2024 7:45 AM [employer] OPER[employer] ETRM Testing Location [place] DEFAULT 06/26/2024 7:10 AM [employer]PER[employer] ETRM Blood (Blood, Venous) 06/26/2024 6:59 AM [employer] 06/26/2024 7:10 AM [employer] us Faviola Maradiaga APRN C.N.P., M.S.N. LAB BLOOD BANK TEST ORDERABLES Final Result [facility] [place] [address] [place] [address], [facility] ETRM [facility] [address] [place] [address] * pH (06/23/2024 1:14 PM [employer]) Only the most recent of3 resultswithin the time period is included. Pathologist [facility] pH 7.42 7.35 - 7.45 pH 06/23/2024 1:24 PM [employer] [facility] Blood 06/23/2024 1:14 PM [employer] 06/23/2024 1:20 PM [employer] us Leslie Gupta M.D. LAB HISTORICAL ORD ERS Final Result [facility] [place] [address] [place] [address], [facility] METH [facility] [address] [place] [address] * Calcium, Ionized (06/23/2024 1:14 PM [employer]) Only the most recent of3 resultswithin the time period is included. Calcium, Ionized, B 5.18 4.65 - 5.30 mg/dL 06/23/2024 1:26 PM [employer] M[facility] Blood (Blood, Arterial) 06/23/2024 1:14 PM [employer] OPERATOR [employer] 06/23/2024 1:20 PM [employer]PER[employer] Leslie Gupta M.D. LAB BLOOD NON ADD- ON Final Result Performing Organization Address [facility] Co de Phone Number [facility] [place] [address] [place] [address] * (ABNORMAL) C-Peptide (06/23/2024 8:13 AM [employer]) Pathologist [facility] [place] C-Peptide, S 0.7(L) 1.1 - 4.4 ng/mL 06/23/2024 9:10 AM [employer] DTL Comment: ----ADDITIONAL INFORMATION---- Reference interval applies to fasting patients. Blood (Blood, Venous) 06/23/2024 8:13 AM [employer] 06/23/2024 8:44 AM [employer]PER[employer] David Salazar APRN, C.N.P., D.N.P. LAB BLOOD A DD-ON Final Result Performing Organization Address [facility] de Phone Number [facility] [place] [address] DTL [facility] [address] [place] [address] * (ABNORMAL) Glucose, Fasting (06/23/2024 8:13 AM [employer] O[employer]) Glucose, P 285(H) 70 - 100 mg/dL 06/23/2024 9:04 AM [employer] OPERATOR [employer] DTL Blood (Blood, Venous) 06/23/2024 8:13 AM [employer]ER OPERATOR [employer] 06/23/2024 8:45 AM [employer] OPERATOR [employer] David Salazar APRN, C.N.P., D.N.P. LAB BLOOD N ON ADD-ON Final Result Performing Organization Address City/[facility]/ZIP Co de Phone Number [facility] [place] [address] DTL [facility] [address] [place] [address] * Patient Status (06/23/2024 5:18 AM [employer] OPERATOR [employer]) Only the most recent of8 resultswithin the time period is included. FIO2 0.21 0.21=AIR 06/23/2024 5:22 AM [employer] M[facility] Spont. breaths/min 14 06/23/2024 5:22 AM [employer]ER OPERATOR [employer] M[facility] Blood 06/23/2024 5:18 AM [employer]ER OPERATOR [employer] 06/23/2024 5:22 AM [employer]ER OPERATOR [employer] Leslie Gupta M.D. LAB BLOOD NON ADD- ON Final Result Performing Organization Address [facility] Co de Phone Number [facility] [place] [address] METH [facility] [address] [place] [address] * (ABNORMAL) Blood Gas with Coox, Arterial (06/23/2024 5:18 AM [employer] OPERATOR [employer]) Only the most recent of8 resultswithin the time period is included. pO2 73(L) 83 - 108 mm Hg 06/23/2024 5:26 AM [employer] OPERATOR [employer] M[facility] pCO2 31(L) 32 - 45 mm Hg 06/23/2024 5:26 AM [employer] O[employer] [facility] pH 7.42 7.35 - 7.45 pH 06/23/2024 5:26 AM [employer]PERATOR [employer] M[facility] Base Excess -4(L) -2 - 3 mmol/L 06/23/2024 5:26 AM [employer]PER[employer] M[facility] HCO3 20(L) 22 - 26 mmol/L 06/23/2024 5:26 AM [employer] M[facility] Hemoglobin, B 11.3(L) 11.6 - 15.0 g/dL 06/23/2024 5:26 AM [employer]PER[employer] M[facility] O2Hb 94.6 94.0 - 98.0 % 06/23/2024 5:26 AM [employer] OPERATOR [employer] M[facility] COHb 1.3 <3.0 % 06/23/2024 5:26 AM [employer] OPERATOR [employer] M[facility] MetHb 1.0 <1.5 % 06/23/2024 5:26 AM [employer]PERATOR [employer] M[facility] CtO2 15.1(L) 18.0 - 21.0 vol % 06/23/2024 5:26 AM [employer] OPER[employer] METH Arterial Sample Site Art Line 06/23/2024 5:22 AM [employer] METH Comment:Michael's test not don e. Blood (Blood, Arterial) 06/23/2024 5:18 AM [employer]ER OPERATOR [employer] 06/23/2024 5:22 AM [employer]ER OPERATOR [employer] us Leslie Gupta M.D. LAB BLOOD NON ADD- ON Final Result Performing Organization Address [facility]/ZIP Co de Phone Number [address] [place] [address] * Bacteria / Raudel Culture, Blood #2 (06/22/2024 11:01 AM [employer] OPERATOR [employer]) Only the most recent of2 resultswithin the time period is included. Bacteria/Adriana da Culture, Blood No growth after 5 days of incubation. 06/27/2024 12:02 PM [employer] OPERATOR [employer] DTL Blood (Blood, Peripheral Draw) 06/22/2024 11:01 AM [employer]ER OPERATOR [employer] 06/22/2024 11:23 AM [employer] OPERATOR [employer] Comment:Specimen Source Site : Blood Narrative [facility] [place] - 06/27/2024 12:02 PM [employer] OPERATOR [employer] Received Bactec Peds bottle us [employer]i [employer] P.A.-C. LAB MICROBIOLOGY - GE NERAL ORDERABLES Final Result Performing Organization Address City/[facility]/ZIP Co de Phone Number [facility] [place] [address] [place] [address], [facility] [place] [address] * DX Abdomen Portable Anterior Posterior 1 View (06/22/2024 10:24 AM [employer] OPER[employer]) Anatomical Region Laterality Modality Abdomen, Abdominal RST LOS, Abdominal ARZ LOS, Abdominal FLA LOS N/A Digital Radiography Impressions 06/22/2024 10:48 AM [employer] O[employer] Right femoral line tip is directed cephalad to the level of the right sacral ala. This is the expected course for intravascular placement although exact position cannot be confirmed by radiographs. IUD. Demineralization. Reynolds catheter. Narrative 06/22/2024 10:48 AM [employer]PER[employer] EXAM: DX ABDOMEN PORTABLE ANTERIOR POSTERIOR 1 VIEW Procedure Note Daniel Eason M.D. - 06/22/2024 EXAM: DX ABDOMEN PORTABLE ANTERIOR POSTERIOR 1 VIEW IMPRESSION: Right femoral line tip is directed cephalad to the level of the rightsacral ala. This is the expected course for intravascular placementalthough exact position cannot be confirmed by radiographs. IUD.Demineralization. Reynolds catheter. Faviola Puente APRN, C.N.P., M.S.N. IMG DIAGNO STIC IMAGING PROCEDURES Final Result * Place arterial catheter No upper extremity site restrictions (06/22/2024 4:49 AM [employer] OPERATOR [employer]) Only the most recent of2 resultswithin the time period is included. Narrative Jo Ann Rivero, R.R.T., L.R.T. - 06/22/2024 4:49 AM [employer]ER OPERATOR [employer] Jo Ann Rivero R.R.T., L.R.T. 06/22/2024 4:[address] arterial catheter No upper extremity site restrictions Performed by: Jo Ann Rivero R.R.T., L.R.T. Authorized by: Faviola Puente APRN, C.N.P., M.S.N. Location: ICU/PCU PROCEDURE DETAILS: Line type: arterial Laterality: left Location: radial Location details: new site Age group: adult Catheter diameter: 20 Ga Technique: ultrasound guided Ultrasound guidance: image not saved Monitored: yes Number of attempts: 1 CONSENT Consent [...] local infiltration Local infiltrate type: lidocaine POST-PROCEDURE DETAILS: Procedure completed successfully: yes Line secured: secured with sutureless device Chlorhexidine disc around insertion site and under catheter with slight turn: yes Notable Events - arterial: none Patient tolerance of procedure: successful Faviola Puente APRN, C.N.P., M.S.N. IV THERAPY ORDERABLES Final Result * Drug Screen Urine (06/22/2024 4:29 AM [employer] OPERATOR [employer]) Ethanol, Screen U Negative NEGATIVE 06/22/2024 5:14 AM [employer]ER OPERATOR [employer] DTL Amphetamines, U Negative NEGATIVE 06/22/2024 5:14 AM [employer]ER OPERATOR [employer] DTL Barbiturates, Screen, U Negative NEGATIVE 06/22/2024 5:14 AM [employer]ER OPERATOR [employer] DTL Benzodiazepin es, Screen, U Negative NEGATIVE 06/22/2024 5:14 AM [employer]ER OPERATOR [employer] DTL Cocaine, Screen, U Negative NEGATIVE 06/22/2024 5:14 AM [employer]ER OPERATOR [employer] DTL Opiates, Screen, U Negative NEGATIVE 06/22/2024 5:14 AM [employer] H[employer]ER OPERATOR [employer]AT[employer] DTL Phencyclidine , Screen, U Negative NEGATIVE 06/22/2024 5:14 AM [employer]ER OPERATOR [employer] DTL Tetrahydrocan nabinol, U Presumptive Positive NEGATIVE 06/22/2024 5:20 AM [employer]ER OPERATOR [employer] DTL Urine (Urine, Midstream) 06/22/2024 4:29 AM [employer]ER OPERATOR [employer] 06/22/2024 4:40 AM [employer]ER OPERATOR [employer] Nora Parry M.D. LAB URINE ORDERAB LES Final Result Performing Organization Address [facility] Co de Phone Number [facility] [place] [address] [place] [address], [place] [address] * Staph aureus / MRSA, Nasal, PCR (06/22/2024 4:29 AM [employer]) Staphylococcus aureus, PCR Negative Negative 06/22/2024 7:53 AM [employer]ER OPERATOR [employer] DTL MRSA, PCR Negative Negative 06/22/2024 7:53 AM [employer]ER OPERATOR [employer] DTL Swab (Nares) 06/22/2024 4:29 AM [employer]ER OPERATOR [employer] 06/22/2024 4:46 AM [employer]ER OPERATOR [employer] Faviola Puente APRN C.N.P ., M.S.N. LAB MICROBIOLOGY - GENERAL ORDERABLES Final Result Performing Organization Address [facility] Co de Phone Number [facility] [place] [address] [place] [address], [place] [address] * (ABNORMAL) Electrolyte (Chem 4) Panel (06/22/2024 4:23 AM [employer]) Only the most recent of2 resultswithin the time period is included. Potassium, P 2.8(L) 3.6 - 5.2 mmol/L 06/22/2024 5:17 AM [employer]ER OPERATOR [employer] DTL Sodium, P 143 135 - 145 mmol/L 06/22/2024 5:17 AM [employer]ER OPERATOR [employer] DTL Chloride, P 104 98 - 107 mmol/L 06/22/2024 5:17 AM [employer]ER OPERATOR [employer] DTL Bicarbonate, P 15(L) 22 - 29 mmol/L 06/22/2024 5:17 AM GR[employer]ER AND HONER OPERATOR AUTOMATIC DTL Anion Gap, P 24(H) 7 - 15 06/22/2024 5:17 AM GRINDER AND HONER OPERATOR AUTOMATIC DTL Blood (Blood, Venous) 06/22/2024 4:23 AM GRINDER AND HONER OPERATOR AUTOMATIC 06/22/2024 4:40 AM GRINDER AND HONER OPERATOR AUTOMATIC Faviola Puente APRN, C.N.P., M.S.N. LAB BLOOD ADD-ON Final Result [facility] [place] [address] [place] [address], [place] DTL [facility] [address] [place] [address] * (ABNORMAL) Blood Gas with Coox, Venous (06/22/2024 12:53 AM GRINDER AND HONER OPERATOR AUTOMATIC) Pathologist [facility] [place] pO2, Venous, B 28 Not applicable mm Hg 06/22/2024 12:59 AM GRINDER AND HONER OPERATOR AUTOMATIC METH pCO2, Venous, B 22(L) 41 - 51 mm Hg 06/22/2024 12:59 AM GRINDER AND HONER OPERATOR AUTOMATIC METH pH, Venous, B 7.31(L) 7.32 - 7.43 pH 025 12:59 AM GRINDER AND HONER OPERATOR AUTOMATIC METH Base Excess, Venous, B -15 Not applicable mmol/L 06/22/2024 12:59 AM GRINDER AND HONER OPERATOR AUTOMATIC METH HCO3, Venous, B 11 Not applicable mmol/L 06/22/2024 12:59 AM GRINDER AND HONER OPERATOR AUTOMATIC METH Hemoglobin, Venous, B 12.7 11.6 - 15.0 g/dL 06/22/2024 12:59 AM GRINDER AND HONER OPERATOR AUTOMATIC METH O2Hb, Venous, B 59.2 Not applicable % 06/22/2024 12:59 AM GRINDER AND HONER OPERATOR AUTOMATIC METH COHb, Venous, B <1.0 <3.0 % 06/22/2024 12:59 AM GRINDER AND HONER OPERATOR AUTOMATIC METH MetHb, Venous, B 1.2 <1.5 % 06/22/2024 12:59 AM GRINDER AND HONER OPERATOR AUTOMATIC METH CtO2, Venous, B 10.5 Not Applicable vol % 06/22/2024 12:59 AM GRINDER AND HONER OPERATOR AUTOMATIC METH Sample Site, Venous, B Lyly Line 06/22/2024 12:56 AM GRINDER AND HONER OPERATOR AUTOMATIC METH Blood (Blood, Venous) 06/22/2024 12:53 AM GRINDER AND HONER OPERATOR AUTOMATIC 06/22/2024 12:56 AM GRINDER AND HONER OPERATOR AUTOMATIC us Edil Thompson M.D. LAB BLOOD NON ADD-ON Final Re sult [facility] [place] [address] [place] [id number], [facility] METH [facility] [address] [place] [address] * Thyroid Function Graham (06/21/2024 11:40 PM GRINDER AND HONER OPERATOR AUTOMATIC) Pathologist [facility] [place] TSH, Sensitive 0.5 0.3 - 4.2 mIU/L 06/22/2024 12:42 AM GRINDER AND HONER OPERATOR AUTOMATIC DTL Blood (Blood, Venous) 06/21/2024 11:40 PM GRINDER AND HONER OPERATOR AUTOMATIC 06/22/2024 12:10 AM GRINDER AND HONER OPERATOR AUTOMATIC Humera Stewart M.D. LAB BLOOD ADD-ON Final Re sult Performing Organization Address City/[facility]/ZIP Co de Phone Number [facility] [place] [address] [place], [place] [id number] [place] [address] DTL [facility] [address] [place] [address] * APTT (Activated Partial Thromboplastin Time) (06/21/2024 11:40 PM GRINDER AND HONER OPERATOR AUTOMATIC) [facility] Activated Partial Thrombopl Time, P 30 25 - 37 sec 06/21/2024 11:55 PM GRINDER AND HONER OPERATOR AUTOMATIC METH Blood (Blood, Venous) 06/21/2024 11:40 PM GRINDER AND HONER OPERATOR AUTOMATIC 06/21/2024 11:45 PM GRINDER AND HONER OPERATOR AUTOMATIC us Humera Stewart M.D. LAB BLOOD ADD-ON Final Re sult [facility] [place] [address] METH [facility] [address] [place] [address] * (ABNORMAL) Fibrinogen (06/21/2024 11:40 PM GRINDER AND HONER OPERATOR AUTOMATIC) Pathologist [facility] [place] Fibrinogen, P 186(L) 200 - 393 mg/dL 06/21/2024 11:53 PM GRINDER AND HONER OPERATOR AUTOMATIC METH Blood (Blood, Venous) 06/21/2024 11:40 PM GRINDER AND HONER OPERATOR AUTOMATIC 06/21/2024 11:45 PM GRINDER AND HONER OPERATOR AUTOMATIC Humera Stewart M.D. LAB BLOOD ADD-ON Final Re sult Performing Organization Address [facility] Co de Phone Number [facility] [place] [address] [place] [address], [facility] METH [facility] [address] [place] [address] * (ABNORMAL) Amylase, Isoenzymes (06/21/2024 11:25 PM GRINDER AND HONER OPERATOR AUTOMATIC) Amylase, Total, S 810(H) 28 - 100 U/L 06/22/2024 12:09 AM GRINDER AND HONER OPERATOR AUTOMATIC DTL Amylase, Pancreatic, S 26 13 - 53 U/L 06/22/2024 9:05 AM GRINDER AND HONER OPERATOR AUTOMATIC DTL Amylase, Salivary, S 784(H) <=86 U/L 06/22/2024 9:05 AM GRINDER AND HONER OPERATOR AUTOMATIC DTL Blood (Blood, Venous) 06/21/2024 11:25 PM GRINDER AND HONER OPERATOR AUTOMATIC 06/22/2024 7:17 AM GRINDER AND HONER OPERATOR AUTOMATIC Narrative [facility] [place] - 06/22/2024 9:05 AM GRINDER AND HONER OPERATOR AUTOMATIC Specimen Information: Specimen ID: [id number] Specimen Type: Blood Specimen Collection Start Date: 06/21/2024 11:25 PM Specimen Received Date: 06/22/2024 7:17 AM Specimen ID: [id number] Specimen Type: Blood Specimen Collection Start Date: 06/21/2024 11:25 PM Specimen Received Date: 06/21/2024 11:49 PM Faviola Puente APRN C.N.P., M.S.N. LAB BLOOD ADD-ON Final Result Performing Organization Address City/[facility]/ZIP Co de Phone Number [facility] [place] [address] [place] [address], [facility] [address] [place] [address] * (ABNORMAL) Morphology Eval (special smear) (06/21/2024 11:25 PM GRINDER AND HONER OPERATOR AUTOMATIC) Neutrophilic Segs and Bands 87(H) 50 - 75 % 06/22/2024 1:11 AM GRINDER AND HONER OPERATOR AUTOMATIC PM Lymphocytes 5(L) 18 - 42 % 06/22/2024 1:11 AM GRINDER AND HONER OPERATOR AUTOMATIC [facility] Monocytes 8 2 - 11 % 06/22/2024 1:11 AM GRINDER AND HONER OPERATOR AUTOMATIC [facility] Manual Absolute Neutrophil Count 29.93(H) 1.56 - 6.45 x10(9)/L 06/22/2024 1:11 AM GRINDER AND HONER OPERATOR AUTOMATIC [facility] Comment: ----ADDITIONAL INFORMATION---- The manual absolute neutrophil count is derived from a manual differential count and therefore is not exactly comparable to the automated absolute neutrophil count. Blood 06/21/2024 11:2 5 PM GRINDER AND HONER OPERATOR AUTOMATIC 06/21/2024 11:27 PM GRINDER AND HONER OPERATOR AUTOMATIC Faviola Puente APRN, Katrin.N.P., M.S.N. LAB [place]OD [place] [address] * (ABNORMAL) Alkaline Phosphatase (06/21/2024 11:25 PM GRINDER AND HONER OPERATOR AUTOMATIC) Pathologist [facility] [place] Alkaline Phosphatase, S 218(H) 35 - 104 U/L 06/22/2024 12:09 AM GRINDER AND HONER OPERATOR AUTOMATIC DT Blood (Blood, Venous) 06/21/2024 11:25 PM GRINDER AND HONER OPERATOR AUTOMATIC 06/21/2024 11:49 PM GRINDER AND HONER OPERATOR AUTOMATIC Faviola Puente APRN, Katrin.N.P., M.S.N. LAB BLOOD ADD-ON Final Result [facility] [place] [address] [place] [address] * (ABNORMAL) Osmolality (06/21/2024 11:25 PM GRINDER AND HONER OPERATOR AUTOMATIC) Osmolality, S 339(H) 275 - 295 mOsm/kg 06/22/2024 12:40 AM GRINDER AND HONER OPERATOR AUTOMATIC DTL Blood (Blood, Venous) 06/21/2024 11:25 PM GRINDER AND HONER OPERATOR AUTOMATIC 06/21/2024 11:49 PM GRINDER AND HONER OPERATOR AUTOMATIC Katrin Martínez APRN.N.P., M.S.N. LAB BLOOD ADD-ON Final Result Performing Organization Address City/[facility]/ZIP Co de Phone Number [facility] [place] [address] [place] [address] * Bilirubin, Total (06/21/2024 11:25 PM GRINDER AND HONER OPERATOR AUTOMATIC) Bilirubin, Total, S 0.7 0.0 - 1.2 mg/dL 06/22/2024 12:09 AM GRINDER AND HONER OPERATOR AUTOMATIC DTL Blood (Blood, Venous) 06/21/2024 11:25 PM GRINDER AND HONER OPERATOR AUTOMATIC 06/21/2024 11:49 PM GRINDER AND HONER OPERATOR AUTOMATIC Katrin Martínez APRN.N.P., M.S.N. LAB BLOOD ADD-ON Final Result Performing Organization Address [facility] Co de Phone Number [facility] [place] [address] [place] [address] * (ABNORMAL) Ammonia (06/21/2024 11:23 PM GRINDER AND HONER OPERATOR AUTOMATIC) Ammonia, P 45(H) <=30 mcmol/L 06/21/2024 11:52 PM GRINDER AND HONER OPERATOR AUTOMATIC DTL Blood (Blood, Venous) 06/21/2024 11:23 PM GRINDER AND HONER OPERATOR AUTOMATIC 06/21/2024 11:33 PM GRINDER AND HONER OPERATOR AUTOMATIC Nora Parry M.D. LAB BLOOD NON ADD -ON Final Result Performing Organization Address City/[facility]/ZIP Co de Phone Number [facility] [place] [address] [place] [address] [place] [address] * Cortisol (06/21/2024 11:19 PM GRINDER AND HONER OPERATOR AUTOMATIC) Cortisol, Random, S 54 mcg/dL 06/22/2024 1:34 AM GRINDER AND HONER OPERATOR AUTOMATIC DT Comment: ----REFERENCE VALUE---- AM ([id number]): 4.8-20 PM ([id number]): 2.5-12 Blood (Blood, Venous) 06/21/2024 11:19 PM GRINDER AND HONER OPERATOR AUTOMATIC 06/22/2024 1:00 AM GRINDER AND HONER OPERATOR AUTOMATIC us Faviola Puente APRN, C.N.P., M.S.N. LAB BLOOD ADD-ON Final Result [facility] [place] [address] [place] [address], [facility] [address] [place] [address] * FL INS NON-ALEN CVC >5YR, FL US GUIDE VASC ACCESS, LDA ANE CENTRAL LINE QUADRUPLE LUMEN, MC ANE CENTRAL LINE GENERIC PERFORMABLE (06/21/2024 11:13 PM GRINDER AND HONER OPERATOR AUTOMATIC) Narrative Edil Thompson M.D. - 06/21/2024 11:13 PM GRINDER AND HONER OPERATOR AUTOMATIC Edil Thompson M.D. 06/21/2024 11:18 PM Invasive Line Performed by: Humera Stewart M.D. Authorized by: Edil Thompson M.D. Care team members present 1. Humera Stewart M.D. 2. Edil Thompson M.D. Location: ICU/PCU PROCEDURE DETAILS: Line type: central venous Laterality: right Location: femoral Location details: new site Additional catheter (i.e. multiple lines in same vessel): no Patient position: supine Age group: adult Line Type: temporary (non-tunneled, non-implanted) Introducer: no Lumen(s): quad lumen Catheter diameter: 7 Fr Catheter insertion depth (cm): 16 cm Site the catheter was advanced to (this is the intended location and does not need to be proven by radiologic exam): central venous circulation (e.g. brachiocephalic (innominate), superior or inferior vena cava, right atrium) Technique: ultrasound guided Ultrasound guidance: image acquired and saved Ultrasound comment: ultrasound guidance used demonstrating vessel patency and cannulation of the vessel observed. Vessel transduced: yes Monitored (venous): yes Number of attempts: 3 CONSENT Consent obtained: verbal Consent given by: [...] in a procedural pause. PRE-PROCEDURE DETAILS: Indication(s): insufficient peripheral access Appropriate hand hygiene, gown, cap, mask, protective eyewear, sterile gloves, skin preparation, sterile drape, and strict aseptic technique were utilized as applicable for the procedure.: yes Skin preparation: chlorhexidine SEDATION / ANESTHESIA Anesthesia method: local infiltration POST-PROCEDURE DETAILS: Procedure completed successfully: yes Line secured: sutured Chlorhexidine disc around insertion site and under catheter with slight turn: yes Notable Events: none Patient tolerance of procedure: successful COMMENTS Emergency procedure. Patient cold, shivering, acidemic and uncooperative. Minimal peripheral access. IJ deemed to be too risky. Verbal consent from patient. Aseptic technique. Supine. Real-time ultrasound. Third pass. Wire threaded easily. Transduced venous before dilation. Catheter placed. Good flow from each lumen. Sutured. Venous transduction confirmed after placement. Edil Thompson M.D. PROCEDURE/MINOR SURGICAL ORDE GOSIA Final Result * Critical Care (06/21/2024 11:00 PM GRINDER AND HONER OPERATOR AUTOMATIC) Narrative Nora Garcia M.D. - 06/21/2024 11:00 PM GRINDER AND HONER OPERATOR AUTOMATIC Nora Garcia M.D. 06/22/2024 9:41 AM Critical Care Performed by: Nora Garcia M.D. Authorized by: Nora Garcia M.D. 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 PROCEDURE/MINOR S URGICAL ORDERABLES Final Result * VAS-Pulmonary And CC Medicine Image Exam (06/21/2024 10:25 PM GRINDER AND HONER OPERATOR AUTOMATIC) 06/21/2024 10:2 3 PM GRINDER AND HONER OPERATOR AUTOMATIC Narrative [facility] - 06/21/2024 11:40 PM GRINDER AND HONER OPERATOR AUTOMATIC This order has been created and auto-finalized to support the import of images acquired without order. The clinical documentation to support these images can be found on the encounter that produced images. us Provider Not In System IMG NON RAD IMAGING PROCE DURES Final Result [facility] NA * CT Chest with IV Contrast (06/21/2024 9:18 PM GRINDER AND HONER OPERATOR AUTOMATIC) Anatomical Region Laterality Modality Chest, Thoracic RST LOS, Tho racic ARZ LOS, Thoracic ARZ LOS, Thoracic FLA LOS N/A Computed Tomography, Compute d Tomography 06/21/2024 9:09 PM GRINDER AND HONER OPERATOR AUTOMATIC Impressions 06/21/2024 9:34 PM GRINDER AND HONER OPERATOR AUTOMATIC No acute findings within the chest, abdomen and pelvis. Narrative 06/21/2024 9:34 PM GRINDER AND HONER OPERATOR AUTOMATIC EXAM: CT CHEST WITH IV CONTRAST, CT ABDOMEN PELVIS WITH IV CONTRAST COMPARISON: Chest CT 11/03/2023, CT abdomen and pelvis 05/11/2024. FINDINGS: Examination limited by motion artifact. CHEST: Bibasilar atelectasis. Trachea and proximal bronchi are patent. No thoracic lymphadenopathy by size criteria. Minimal coronary artery calcifications. Mild thickening of the distal esophagus near the GE junction. ABDOMEN/PELVIS: Postoperative changes hepatic allograft. Limited evaluation of the hepatic vasculature, which is patent where seen. Interval resolution of previously seen splenomegaly. Pancreatic parenchymal atrophy with scattered coarse calcifications, likely reflecting sequelae of chronic pancreatitis. No main duct dilatation. No intra or extrahepatic biliary ductal dilatation. Unremarkable appearance of the bilateral adrenal glands and bilateral kidneys. IUD. Normal caliber bowel without evidence of obstruction. No abdominal pelvic lymphadenopathy. No loculated fluid collections. No free air. Anterior wedging of multiple thoracolumbar vertebral bodies. Procedure Note Emily Jean M.D. - 06/21/2024 EXAM: CT CHEST WITH IV CONTRAST, CT ABDOMEN PELVIS WITH IV CONTRAST COMPARISON: Chest CT 11/03/2023, CT abdomen and pelvis 05/11/2024. FINDINGS: Examination limited by motion artifact. CHEST: Bibasilar atelectasis. Trachea and proximal bronchi are patent. No thoracic lymphadenopathy by size criteria. Minimal coronary artery calcifications. Mild thickening of the distal esophagus near the GE junction. ABDOMEN/PELVIS: Postoperative changes hepatic allograft. Limited evaluation of the hepaticvasculature, which is patent where seen. Interval resolution of previously seen splenomegaly. Pancreatic parenchymal atrophy with scattered coarse calcifications,likely reflecting sequelae of chronic pancreatitis. No main ductdilatation. No intra or extrahepatic biliary ductal dilatation. Unremarkable appearance of the bilateral adrenal glands and bilateralkidneys. IUD. Normal caliber bowel without evidence of obstruction. No abdominal pelvic lymphadenopathy. No loculated fluid collections. Nofree air. Anterior wedging of multiple thoracolumbar vertebral bodies. IMPRESSION: No acute findings within the chest, abdomen and pelvis. Nora PERALES CT PROCEDURES Final Result * CT Head without IV Contrast (06/21/2024 9:18 PM GRINDER AND HONER OPERATOR AUTOMATIC) Anatomical Region Laterality Modality Head, Neuroradiology RST LOS , Neuroradiology ARZ LOS, Neuroradiology FLA LOS N/A Computed Tomography, Compute d Tomography 06/21/2024 9:03 PM GRINDER AND HONER OPERATOR AUTOMATIC Impressions 06/21/2024 9:20 PM GRINDER AND HONER OPERATOR AUTOMATIC No acute intracranial findings. Narrative 06/21/2024 9:20 PM GRINDER AND HONER OPERATOR AUTOMATIC EXAM: CT HEAD WITHOUT IV CONTRAST COMPARISON: MRI brain 11/15/2021, CT head 11/12/2021 FINDINGS: No intracranial hemorrhage or mass effect. Preserved aguilar-white differentiation without findings of acute infarct or suggestion of edema. Normal caliber is. Paranasal sinuses and mastoid air cells are clear. Procedure Note Benja Burns M.D. - 06/21/2024 EXAM: CT HEAD WITHOUT IV CONTRAST COMPARISON: MRI brain 11/15/2021, CT head 11/12/2021 FINDINGS: No intracranial hemorrhage or mass effect. Preserved aguilar-whitedifferentiation without findings of acute infarct or suggestion of edema.Normal caliber is. Paranasal sinuses and mastoid air cells are clear. IMPRESSION: No acute intracranial findings. us Nora Parry M.D. [facility] CT PROCEDURES Final Result * DX Chest Portable 1 View (06/21/2024 8:29 PM GRINDER AND HONER OPERATOR AUTOMATIC) Anatomical Region Laterality Modality Chest, Thoracic RST LOS, Tho racic ARZ LOS, Thoracic FLA LOS N/A Digital Radiography Impressions 06/21/2024 9:11 PM GRINDER AND HONER OPERATOR AUTOMATIC Since 02/29/2024, mild bilateral perihilar and left lower lobe patchy opacities favored to represent atelectasis. Normal cardiac silhouette. Narrative 06/21/2024 9:11 PM GRINDER AND HONER OPERATOR AUTOMATIC EXAM: DX CHEST PORTABLE 1 VIEW Procedure Note Emily Jean M.D. - 06/21/2024 EXAM: DX CHEST PORTABLE 1 VIEW IMPRESSION: Since 02/29/2024, mild bilateral perihilar and left lower lobe patchyopacities favored to represent atelectasis. Normal cardiac silhouette. us Nora Parry M.D. IMG DIAGNOSTIC IM AGING PROCEDURES Final Result * (ABNORMAL) Venous Blood Gas and Electrolytes CG8+, POCT (06/21/2024 8:27 PM GRINDER AND HONER OPERATOR AUTOMATIC) Sample Site, POCT Venstick 06/21/2024 8:41 PM GRINDER AND HONER OPERATOR AUTOMATIC [facility] Comment: ----ADDITIONAL INFORMATION---- Performed at the Point of Care pH, Venous, POCT, B 6.89(L) 7.32 - 7.43 06/21/2024 8:41 PM GRINDER AND HONER OPERATOR AUTOMATIC PCSM Comment: ----ADDITIONAL INFORMATION---- Performed at the Point of Care pCO2, Venous, POCT, B 24(L) 41 - 51 mm Hg 06/21/2024 8:41 PM GRINDER AND HONER OPERATOR AUTOMATIC [facility] Comment: ----ADDITIONAL INFORMATION---- Performed at the Point of Care pO2, Venous, POCT, B 32 Not Applicable mm Hg 06/21/2024 8:41 PM GRINDER AND HONER OPERATOR AUTOMATIC [facility]CS[facility] Comment: ----ADDITIONAL INFORMATION---- Performed at the Point of Care Base Excess, Venous, POCT, B <-25 Not Applicable mmol/L 06/21/2024 8:41 PM GRINDER AND HONER OPERATOR AUTOMATIC [facility]CS[facility] Comment: ----ADDITIONAL INFORMATION---- Performed at the Point of Care HCO3, Venous, POCT, B <5 Not Applicable mmol/L 06/21/2024 8:41 PM GRINDER AND HONER OPERATOR AUTOMATIC [facility]CS[facility] Comment: ----ADDITIONAL INFORMATION---- Performed at the Point of Care Sodium, POCT, B 127(L) 135 - 145 mmol/L 06/21/2024 8:41 PM GRINDER AND HONER OPERATOR AUTOMATIC [facility] Comment: ----ADDITIONAL INFORMATION---- Performed at the Point of Care Potassium, POCT, B 4.1 3.6 - 5.2 mmol/L 06/21/2024 8:41 PM GRINDER AND HONER OPERATOR AUTOMATIC [facility] Comment: ----ADDITIONAL INFORMATION---- Performed at the Point of Care Calcium, Ionized, POCT, B 5.00 4.65 - 5.30 mg/dL 06/21/2024 8:41 PM GRINDER AND HONER OPERATOR AUTOMATIC [facility] Comment: ----ADDITIONAL INFORMATION---- Performed at the Point of Care Glucose, POCT, B >600(H) 70 - 140 mg/dL 06/21/2024 8:41 PM GRINDER AND HONER OPERATOR AUTOMATIC [facility] Comment: ----ADDITIONAL INFORMATION---- Performed at the Point of Care Hematocrit, POCT, B 51.0(H) 35.5 - 44.9 % 06/21/2024 8:41 PM GRINDER AND HONER OPERATOR AUTOMATIC [facility] Comment: ----ADDITIONAL INFORMATION---- Performed at the Point of Care Blood (Blood, Venous) 06/21/2024 8:27 PM GRINDER AND HONER OPERATOR AUTOMATIC 06/21/2024 8:26 PM GRINDER AND HONER OPERATOR AUTOMATIC Nora Parry M.D. LAB POCT ORDERABL ES - DEVICE Final Result Performing Organization Address [facility] Co de Phone Number POC [facility] [address] [place] [address], [facility] PCLX [facility] [address] [place] [address] PCSM [facility] POC [address] [place] [id number] * (ABNORMAL) Lactate, POCT (06/21/2024 8:27 PM GRINDER AND HONER OPERATOR AUTOMATIC) [facility] Lactate, POCT 3.57(H) 0.50 - 2.20 mmol/L 06/21/2024 8:41 PM GRINDER AND HONER OPERATOR AUTOMATIC PCL[facility] Blood (Blood, Venous) 06/21/2024 8:27 PM GRINDER AND HONER OPERATOR AUTOMATIC 06/21/2024 8:27 PM GRINDER AND HONER OPERATOR AUTOMATIC Nora Parry M.D. LAB POCT ORDERABL ES - DEVICE Final Result Performing Organization Address [facility] de Phone Number [facility] [address] [place] [address], [facility] PCLX [facility] POC [address] [place] [address] * Ethylene Glycol Level (06/21/2024 8:26 PM GRINDER AND HONER OPERATOR AUTOMATIC) [facility] Ethylene Glycol, S Not Detected >=20 (Toxic) mg/dL 06/22/2024 12:13 AM GRINDER AND HONER OPERATOR AUTOMATIC [facility] Comment: ----ADDITIONAL INFORMATION---- This test was developed and its performance characteristics determined by [facility] in a manner consistent with CLIA requirements. This test has not been cleared or approved by the U.S. Food and Drug Administration. Blood (Blood, Venous) 06/21/2024 8:26 PM GRINDER AND HONER OPERATOR AUTOMATIC 06/21/2024 9:33 PM GRINDER AND HONER OPERATOR AUTOMATIC Nora Parry M.D. LAB BLOOD ADD-ON Final Result Performing Organization Address City/[facility]/ZIP Co de Phone Number [facility] [address] [place], [place] [address] [address] [place] [address] [place] [address] * Ethanol Level, Serum (06/21/2024 8:25 PM GRINDER AND HONER OPERATOR AUTOMATIC) Ethanol, S <10 <10 mg/dL 06/21/2024 9:3 9 PM GRINDER AND HONER OPERATOR AUTOMATIC DT Blood (Blood, Venous) 06/21/2024 8:25 PM GRINDER AND HONER OPERATOR AUTOMATIC 06/21/2024 8:57 PM GRINDER AND HONER OPERATOR AUTOMATIC Nora Parry M.D. LAB BLOOD NON ADD -ON Final Result Performing Organization Address [facility] [place] [address], [address] [address] * (ABNORMAL) Volatile Screen (06/21/2024 8:25 PM GRINDER AND HONER OPERATOR AUTOMATIC) Methanol, S Not Detected mg/dL 06/21/2024 11:43 PM GRINDER AND HONER OPERATOR AUTOMATIC [facility] Comment: ----REFERENCE VALUE---- Not detected (Positive results are quantitated) >=10 (Toxic concentration) Ethanol, S see below mg/dL 06/21/2024 11:43 PM GRINDER AND HONER OPERATOR AUTOMATIC [facility] Comment: Upon analysis, result not available due to analyte specific failure. Quantity was not sufficient for repeat testing. ----REFERENCE VALUE---- Not detected (Positive results are quantitated) >=400 (Toxic concentration) Acetone, S 29(CH) mg/dL 06/21/2024 11:43 PM GRINDER AND HONER OPERATOR AUTOMATIC SDS Comment: ----REFERENCE VALUE---- Not detected (Positive results are quantitated) >=10 (Toxic concentration) Isopropanol, S Not Detected mg/dL 06/21/19 11:43 PM GRINDER AND HONER OPERATOR AUTOMATIC [facility] Comment: ----REFERENCE VALUE---- Not detected (Positive results are quantitated) >=10 (Toxic concentration) ----ADDITIONAL INFORMATION---- This test was developed and its performance characteristics determined by [facility] in a manner consistent with CLIA requirements. This test has not been cleared or approved by the U.S. Food and Drug Administration. Blood (Blood, Venous) 06/21/2024 8:25 PM GRINDER AND HONER OPERATOR AUTOMATIC 06/21/2024 9:33 PM GRINDER AND HONER OPERATOR AUTOMATIC Nora Parry M.D. LAB BLOOD NON ADD -ON Final Result Performing Organization Address City/[facility]/ZIP Co de Phone Number [facility] [address] [place] [address] [facility] [address] [place] [address] [place] [address] * T4 (Thyroxine), Total Only (06/21/2024 8:25 PM GRINDER AND HONER OPERATOR AUTOMATIC) T4 (Thyroxine), Total Only, S 6.2 4.5 - 11.7 mcg/dL 06/21/2024 10:59 PM GRINDER AND HONER OPERATOR AUTOMATIC DTL Blood (Blood, Venous) 06/21/2024 8:25 PM GRINDER AND HONER OPERATOR AUTOMATIC 06/21/2024 10:36 PM GRINDER AND HONER OPERATOR AUTOMATIC us Britta Lamb M.D. LAB BLOOD ADD-ON Final Re sult [facility] [address] [place] [address], [facility] [address] [place] [address] * Acetaminophen Level (06/21/2024 8:25 PM GRINDER AND HONER OPERATOR AUTOMATIC) Acetaminophen, S <7 Therapeutic Range: 10-30 mcg/mL 06/21/2024 9:39 PM GRINDER AND HONER OPERATOR AUTOMATIC DTL Blood (Blood, Venous) 06/21/2024 8:25 PM GRINDER AND HONER OPERATOR AUTOMATIC 06/21/2024 8:57 PM GRINDER AND HONER OPERATOR AUTOMATIC us Nora Parry M.D. LAB BLOOD ADD-ON Final Result Performing Organization Address City/[facility] Co de Phone Number [facility] [place] [address] [place] [address], [place] DTL [facility] [address] [place] [address] * HIV-1/-2 Ag and Ab Screen, Plasma (10/10/2022 11:31 AM CDT) HIV-1/-2 Ag and Ab Screen, P Negative Negative 10/10/2022 2:55 PM CDT [facility] Comment: Negative result does not rule out HIV infection. If exposure to HIV infection occurred <14 days ago, contact the laboratory to request addition of HIV-1/HIV-2 RNA detection, Plasma (HIP12). Blood (Blood, Venous) 10/10/2022 11:31 AM CDT 10/10/2022 2:13 PM CDT us Naima Tee M.D. LAB MICROBIOLOGY - BLOOD ORDER HARVEY Final Result Performing Organization Address [facility] Co de Phone Number [facility] [address] [place] [address] [facility] [address] [place] [address] * HPV with Genotyping, PCR, ThinPrep (06/25/2022 5:12 PM GRINDER AND HONER OPERATOR AUTOMATIC) Pathologist [facility] [place] HPV with Genotyping, ThinPrep, PCR Negative Negative 06/26/2022 2:35 PM GRINDER AND HONER OPERATOR AUTOMATIC TO Comment: Negative for high risk HPV by nucleic acid amplification. The following high risk HPV types were not detected: 16, 18, 31, 33, 35, 39, 45, 51, 52, 56, 58, 59, 66, and 68 This result does not rule out HPV in the patient, as the sensitivity of the test depends on the timing of the specimen collection and the quality of the specimen. Result should be correlated with patient's history, clinical presentation, and BROODMARE FOREMAN cytology report. 06/25/2022 5:12 PM GRINDER AND HONER OPERATOR AUTOMATIC 06/26/2022 7:33 AM GRINDER AND HONER OPERATOR AUTOMATIC Ana READ P.A.-C. LAB MICROBIOLOGY - GENERAL ORDERABLES Final Result Performing Organization Address [facility] Co de Phone Number [facility] [address] [place] [address], [facility] in [address] [address] * Hepatitis B Surface Antigen (03/12/2021 5:58 AM GRINDER AND HONER OPERATOR AUTOMATIC) HBs Antigen, S Nonreactive Nonreactive 03/12/20 7:43 AM GRINDER AND HONER OPERATOR AUTOMATIC [facility] Comment: Biotin has been identified by the sports coordinator as a potential interfering substance. Higher concentrations of biotin may be found in multivitamins, hair/nail supplements, and workout supplements. If the result does not match clinical observations, repeat testing after patient refrains from the use of supplements for at least 12 hours. Blood (Blood, Peripheral Draw) 03/12/2021 5:58 AM GRINDER AND HONER OPERATOR AUTOMATIC 03/12/2021 6:10 AM GRINDER AND HONER OPERATOR AUTOMATIC Ivan Lazo D.O. LAB MICROBIOLOGY - BLOOD OR DERABLES Final Result Performing Organization Address [facility]/ZIP Co de Phone Number [facility] [address] [place] [address], [facility] in [address] [address] from Last 3 Months or Most Recently Relevant to Health Maintenance Additional Health Concerns Infection Onset Date Last Indicated Protective Environment 10/10/2022 3 Insurance [facility] Advance Directives For more information, please contact: [phone] * Full Code (Latest Code Status on File) Date Activated Date Inactivated Comments 09/06/2024 6:46 PM 09/09/2024 7:57 PM Question Answer Comments Full Code: Discussed * Full Code Date Activated Date Inactivated Comments 08/21/2024 11:46 PM 08/25/2024 10:28 PM Question Answer Comments Full Code: Discussed * Full Code Date Activated Date Inactivated Comments 07/25/2024 5:52 PM 07/27/2024 8:26 PM Question Answer Comments Full Code: Discussed * Full Code Date Activated Date Inactivated Comments 07/01/2024 4:54 AM 07/04/2024 10:01 PM Question Answer Comments Full Code: Discussed * Full Code Date Activated Date Inactivated Comments 06/21/2024 10:06 PM 06/27/2024 8:59 PM Question Answer Comments Full Code: Discussed Care Teams Heavy Equipment Engine Mechanic Relationship Specialty Start Date End Date Ana Red MPAS, P.A.-C. [address] [facility] [place] [address] PCP - General Internal Medicine 12/01/21 [facility] [place] [facility] 08/25/21
--- OUTSIDE RECORDS SUMMARY | 2024-09-14 01:29 | XMS_ITS | Encounter Summary ---
Author Organization [facility] Address [address] [place] [address] Care Team Providers Care Milk Bottling Machine Operator Name Role Phone Ana Red P.A.-C. Primary Care Pro vider Encounter Details Date Type Department Care Team (Latest Contact Info) Description 08/16/2024 Clinical Communication Ramirez Navarrete [facility] for Transplantation and Clinical Regeneration in [place], [place] [address] [place] [phone] August, Sony Mendez R.N. [address] [place] [phone] Social History Tobacco Use Types Packs/Day Years Used Date Smoking Tobacco: Former Cigarettes 1 - 10/12/2021 Passive Smoke Exposure: Never Smokeless Tobacco: Never Comments:Smoked cigarettes f rom age 18-30 about Alcohol Use Standard Drinks/Week Comments Never 0 (1 standard drink = 0.6 oz pure alcohol) Havent had any alcohol in about a year or so. [facility] Utilities Answer Date Recorded In [...] 02/10/2022 How often do you attend [facility] or baptism services? Patient declined 02/10/2022 [...] exercise (like a brisk walk)? 1 day 11 / On average, how many minutes do you [...] living situation today? I have a [facility] place to live 07/25/2024 Education Answer Date Recorded What is the highest level of school you have completed or the highest degree you have received? Associate degree: occupational, technical, or vocational program 07/16/2021 Comments No Sex and Gender Information Value Date Recorded Sex Assigned at Female 04/12/2021 7:39 PM BAG ADJUSTER Legal Sex Female 7:53 PM BAG ADJUSTER Gender Identity Female 04/12/2021 7:39 PM BAG ADJUSTER Sexual Orientation Straight 04/12/2021 7: 39 PM BAG ADJUSTER documented as of this encounter Plan of Treatment Upcoming Encounters Date Type Department Care Team (Latest Contact Info) Description 09/14/2024 11:00 AM CDT Appointment Department of Radiology, [facility], in [place], [place] [address] [place] [address] Noreen Ansari P.A.-C., M.S. [address] [place] [address] Jesus Figueroa M.D. [address] [place] [phone] 09/14/2024 4:00 PM CDT Telemedicine Division of Pulmonary Medicine in [place], [place] [address] [place] [phone] Ben Dickson APRN, C.N.P. [address] [place] [phone] 09/15/2024 8:00 AM CDT Lab Department of Laboratory Medicine and Pathology, [facility], in [place], [place] [address] [place] [phone] Edgar Montgomery M.B.B.S., M.S. [address] [place] [phone] 09/15/2024 10:00 AM CDT Comprehensive [facility] in [place], [place] [address] [place] [phone] Edgar Montgomery M.B.B.S., M.S. [address] [place] [phone] Miriam Strickland M.D. [address] [place] [phone] 09/15/2024 11:00 AM CDT Office Visit Ramirez Navarrete [facility] Transplantation and Clinical Regeneration in [place], [place] [address] [place] [phone] Edgar Montgomery M.B.B.S., M.S. [address] [place] [phone] Discharge Disposition: Home or Self Care 09/15/2024 1:45 PM CDT Infusion Department of Infusion Therapy in [place], [place] [address] [place] [address] Juan Pete M.D. [address] [place] [phone] 09/18/2024 2:15 PM CDT Hospital Encounter Department of Radiology, [facility] in [place], [place] [address] [place] [address] Edgar Montgomery M.B.B.S., M.S. [address] [place] [phone] 09/20/2024 3:00 PM CDT Comprehensive Visit [facility] in [place], [place] [address] [place] [phone] Catia Quintana APRN, C.N.P. [address] [place] [phone] 10/03/2024 9:00 AM CDT Appointment Department of Radiology, [facility] in [place], [place] [address] [place] [address] Marisabel Carpenter APRN, C.N.P., D.N.P. [address] [place] [phone] 10/05/2024 12:00 PM CDT Appointment Division of Pulmonary Medicine in [place], [place] [address] [place] [phone] Edgar Montgomery M.B.B.S., M.S. [address] [place] [phone] 10/10/2024 7:50 AM CDT Lab Department of Laboratory Medicine and Pathology, [facility] in [place], [place] [address] [place] [address] Marisabel Carpenter APRN, C.N.P., D.N.P. [address] [place] [phone] 10/10/2024 8:00 AM CDT Lab Department of Laboratory Medicine and Pathology, [facility] in [place], [place] [address] [place] [address] Marisabel Carpenter APRN, C.N.P., D.N.P. [address] [place] [phone] 10/10/2024 8:30 AM CDT Nurse Only [facility] in [place], [place] [address] [place] [address] Marisabel Carpenter APRN, C.N.P., D.N.P. [address] [place] [phone] 10/10/2024 9:20 AM CDT Appointment Department of Radiology, [facility] in [place], [place] [address] [place] [address] Marisabel Carpenter APRN, C.N.P., D.N.P. [address] [place] [phone] 10/10/2024 9:45 AM CDT Appointment Department of Laboratory Medicine and Pathology, [facility] in [place], [place] [address] [place] [address] Marisabel Carpenter APRN, Katrin.N.P., D.N.P. [address] [place] [phone] 10/10/2024 1:30 PM CDT Appointment Department of Radiology, [facility], in [place], [place] [address] [place] [address] Marisabel Carpenter APRN C.N.PSuma, D.N.P. [address] [place] [phone] 10/10/2024 2:45 PM CDT Appointment Department of Radiology, [facility], in [place], [place] [address] [place] [address] Marisabel Carpenter APRN, C.N.PSuma, D.N.P. [address] [place] [phone] 10/11/2024 8:00 AM CDT Office Visit [facility] for Transplantation and Clinical Regeneration in [place], [place] [address] [place] [address] Marisabel Carpenter APRN, C.N.P., D.N.P. [address] [place] [phone] 10/11/2024 11:00 AM CDT Comprehensive Visit [facility] [place] Transplantation and Clinical Regeneration in [place], [place] [address] [place] [address] Sree Devlin M.D. [address] [place] [phone] 10/11/2024 1:00 PM CDT Comprehensive Visit Department of Otorhinolaryngology in [place], [place] [address] [place] [phone] Randal Urbano P.A.-C., M.S. [address] [place] [phone] 10/11/2024 2:00 PM CDT Office Visit [facility] [place] Transplantation and Clinical Regeneration in [place], [place] [address] [place] [phone] Hiro Murillo P.A.-C. [address] [place] [phone] 10/11/2024 4:00 PM CDT Comprehensive Visit Department of Dermatology in [place], [place] [address] [place] [phone] Parul Martinez M.D. [address] [place] [phone] 10/12/2024 8:00 AM CDT Telemedicine [facility] [place] Transplantation and Clinical Regeneration in [place], [place] [address] [place] [phone] Ervin Mckeon D.O. [address] [place] [phone] 11/01/2024 2:15 PM CDT Appointment Division of Pulmonary Medicine in [place], [place] [address] [place] [phone] Edgar Montgomery M.B.B.S., M.S. [address] [place] [phone] documented as of this encounter Visit Diagnoses Not on filedocumented in this encounter Additional Health Concerns Infection Onset Date Last Indicated Resolved Time Protective Environment 10/10/2022 10/10/2022 Assessment Noted Time PHQ-9 Depression Total Score: 4 08/12/19 25 3:31 PM CDT documented as of this encounter Care Teams Milk Bottling Machine Operator Relationship Specialty Start Date End Date Ana Red MPAS, P.ALupillo. [address] [place] [address] [place] [phone] PCP - General Internal Medicine 12/01/21 [facility] 08/25/21 documented as of this encounter
--- OUTSIDE RECORDS SUMMARY | 2024-09-14 01:29 | XMS_ITS | Encounter Summary ---
Author Organization [facility] Address [address] [place] [address] Care Team Providers Care Slurry Worker Name Role Phone Ana Red, P.A.-C. Primary Care Pro vider Reason for Visit * Reason Onset Date Comments Med Refill 08/07/2024 Encounter Details Date Type Department Care Team (Late st Contact Info) Description 08/07/2024 Refill Department of Community Internal Medicine in [place], [place] [address] [place] [phone] Ana Red MPAS, P.A.-C. 300 [place] [phone] Med Refill Social History Tobacco Use Types Packs/Day Years Used Date Smoking Tobacco: Former Cigarettes 1 - 10/12/2021 Passive Smoke Exposure: Never Smokeless Tobacco: Never Comments:No longer smoke Alcohol Use Standard Drinks/Week Comments Never 0 (1 standard drink = 0.6 oz pure alcohol) Havent had any alcohol in about a year or so. [facility] Utilities Answer Date Recorded In the past 12 months has [facility] electric, gas, oil, or water [employer] threatened to shut off services in your [...] Recorded PHQ-2 Score 0 08/11/2024 [facility] Occupat ional Health - Occupational Stress [...] your living situation today? I have a [facility] place to live 08/22/2024 Education Answer Date Recorded What is the highest level of school you have completed or the highest degree you have received? Associate degree: occupational, technical, or vocational program 07/16/2021 Comments No Sex and Gender Information Value Date Recorded Sex Assigned at Female 04/12/2021 7:39 PM BRANCH LEAD Legal Sex Female 7:53 PM BRANCH LEAD Gender Identity Female 04/12/2021 7:39 PM BRANCH LEAD Sexual Orientation Straight 04/12/2021 7: 39 PM BRANCH LEAD documented as of this encounter Plan of Treatment Upcoming Encounters Date Type Department Care Team (Latest Contact Info) Description 09/14/2024 11:00 AM CDT Appointment Department of Radiology, [facility], in [place], [place] [address] [place] [phone] Noreen Ansari P.A.-C., M.S. [address] [place] [address] Jesus Figueroa M.D. [address] [place] [phone] 09/14/2024 4:00 PM CDT Telemedicine Division of Pulmonary Medicine in [place], [place] [address] [place] [address] Ben Dickson APRN, C.N.P. [address] [place] [phone] 09/15/2024 8:00 AM CDT Lab Department of Laboratory Medicine and Pathology, [facility], in [place], [place] [address] [place] [address] Edgar Montgomery M.B.B.S., M.S. [address] [place] [phone] 09/15/2024 10:00 AM CDT Comprehensive Visit [facility] for Transplantation and Clinical Regeneration in [place], [place] [address] [place] [address] Edgar Montgomery M.B.B.S., M.S. [address] [place] [phone] Miriam Strickland M.D. [address] [place] [phone] 09/15/2024 11:00 AM CDT Office Visit [facility] for Transplantation and Clinical Regeneration in [place], [place] [address] [place] [address] Edgar Montgomery M.B.B.S., M.S. [address] [place] [phone] Discharge Disposition: Home or Self Care 09/15/2024 1:45 PM CDT Infusion Department of Infusion Therapy in [place], [place] [address] [place] [address] Juan Pete M.D. [address] [place] [phone] 09/18/2024 2:15 PM CDT Hospital Encounter Department of Radiology, [facility] in [place], [place] [address] [place] [address] Edgar Montgomery M.B.B.S., M.S. [address] [place] [phone] 09/20/2024 3:00 PM CDT Comprehensive Visit [facility] for Transplantation and Clinical Regeneration in [place], [place] [address] [place] [address] Catia Quintana APRN, C.N.P. [address] [place] [phone] 10/03/2024 9:00 AM CDT Appointment Department of Radiology, [facility] in [place], [place] [address] [place] [address] Marisabel Carpenetr APRN, C.N.P., D.N.P. [address] [place] [phone] 10/05/2024 12:00 PM CDT Appointment Division of Pulmonary Medicine in [place], [place] [address] [place] [address] Edgar Montgomery M.B.B.S., M.S. [address] [place] [phone] 10/10/2024 7:50 AM CDT Lab Department of Laboratory Medicine and Pathology, [facility] in [place], [place] [address] [place] [address] Marisabel Carpenter APRN, C.N.P., D.N.P. [address] [place] [phone] 10/10/2024 8:00 AM CDT Lab Department of Laboratory Medicine and Pathology, [facility] in [place], [place] [address] [place] [address] Marisabel Carpenter APRN, C.N.P., D.N.P. [address] [place] [phone] 10/10/2024 8:30 AM CDT Nurse Only [facility] in [place], [place] [address] [place] [address] Marisaebl Carpenter APRN, C.N.P., D.N.P. [address] [place] [phone] 10/10/2024 9:20 AM CDT Appointment Department of Radiology, [facility] in [place], [place] [address] [place] [address] Marisabel Carpenter APRN, C.N.P., D.N.P. [address] [place] [phone] 10/10/2024 9:45 AM CDT Appointment Department of Laboratory Medicine and Pathology, Count Includes [facility] in [place], [place] [address] [place] [address] Marisabel Carpenter APRN, C.N.PSuma, D.N.P. [address] [place] [address] 10/10/2024 1:30 PM CDT Appointment Department of Radiology, [facility] in [place], [place] [address] [place] [address] Marisabel Carpenter APRN, C.N.PSuma, D.N.P. [address] [place] [phone] 10/10/2024 2:45 PM CDT Appointment Department of Radiology, [facility] in [place], [place] [address] [place] [address] Marisabel Carpenter APRN, C.N.PSuma, D.N.P. [address] [place] [phone] 10/11/2024 8:00 AM CDT Office Visit [facility] for Transplantation and Clinical Regeneration in [place], [place] [address] [place] [address] Marisabel Carpenter APRN, C.N.PSuma, D.N.P. [address] [place] [phone] 10/11/2024 11:00 AM CDT Comprehensive Visit [facility] for Transplantation and Clinical Regeneration in [place], [place] [address] [place] [address] Sree Devlin M.D. [address] [place] [phone] 10/11/2024 1:00 PM CDT Comprehensive Visit Department of Otorhinolaryngology in [place], [place] [address] [place] [address] Randal Urbano P.A.-C., M.S. [address] [place] [address] 10/11/2024 2:00 PM CDT Office Visit [facility] Transplantation and Clinical Regeneration in [place], [place] [address] [place] [address] Hiro Murillo P.A.-C. [address] [place] [phone] 10/11/2024 4:00 PM CDT Comprehensive Visit Department of Dermatology in [place], [place] [address] [place] [phone] Parul Martinez M.D. [address] [place] [phone] 10/12/2024 8:00 AM CDT Telemedicine [facility] Transplantation and Clinical Regeneration in [place], [place] [address] [place] [address] Ervin Mckeon D.O. [address] [place] [phone] 11/01/2024 2:15 PM CDT Appointment Division of Pulmonary Medicine in [place], [place] [address] [place] [phone] Edgar Montgomery M.B.B.S., M.S. [address] [place] [phone] documented as of this encounter Visit Diagnoses Not on filedocumented in this encounter Additional Health Concerns Infection Onset Date Last Indicated Resolved Time Protective Environment 10/10/2022 10/10/2022 Assessment Noted Time PHQ-9 Depression Total Score: 4 06/18/19 24 12:20 PM BRANCH LEAD documented as of this encounter Care Teams Slurry Worker Relationship Specialty Start Date End Date Ana Red MPAS, P.A.-C. [address] [facility] [place] [phone] PCP - General Internal Medicine 12/01/21 [facility] [place] [facility] 08/25/21 documented as of this encounter
--- OUTSIDE RECORDS SUMMARY | 2024-09-14 01:29 | XMS_ITS | Encounter Summary ---
Author Organization [facility] Address [address] [place] [address] Care Team Providers Care Adult Psychiatrist Name Role Phone Ana Red, P.A.-C. Primary Care Pro vider Reason for Visit * Reason Onset Date Comments Med Refill 07/31/2024 Encounter Details Date Type Department Care Team (Late st Contact Info) Description 07/31/2024 Refill Department of Community Internal Medicine in [place], [place] [address] [place] [phone] Ana Red MPAS, P.A.-C. [address] [place] [phone] Med Refill Social History Tobacco Use Types Packs/Day Years Used Date Smoking Tobacco: Former Cigarettes 1 - 10/12/2021 Passive Smoke Exposure: Never Smokeless Tobacco: Never Comments:No longer smoke Alcohol Use Standard Drinks/Week Comments Never 0 (1 standard drink = 0.6 oz pure alcohol) Havent had any alcohol in about a year or so. [facility] Utilities Answer Date Recorded In the past [address] [facility] electric, gas, oil, or water [employer] threatened to shut off services in your [...] How often do you attend chur or jehovah's witness services? Patient declined 02/10/2022 Do you belong [...] PHQ-2 Score 0 05/25/2024 [facility] [place] of Occupat ional Health - Occupational Stress [...] your living situation today? I have a [facility] place to live 07/25/2024 Education Answer Date Recorded What is the highest level of school you have completed or the highest degree you have received? Associate degree: occupational, technical, or vocational program 07/16/2021 Comments No Sex and Gender Information Value Date Recorded Sex Assigned at Female 04/12/2021 7:39 PM STACKER DRIVER Legal Sex Female 7:53 PM STACKER DRIVER Gender Identity Female 04/12/2021 7:39 PM STACKER DRIVER Sexual Orientation Straight 04/12/2021 7: 39 PM STACKER DRIVER documented as of this encounter Plan of Treatment Upcoming Encounters Date Type Department Care Team (Latest Contact Info) Description 09/14/2024 11:00 AM CDT Appointment Department of Radiology, [facility], in [place], [place] [address] [place] [phone] Noreen Ansari P.A.-C., M.S. [address] [place] [address] Jesus Figueroa M.D. [address] [place] [phone] 09/14/2024 4:00 PM CDT Telemedicine Division of Pulmonary Medicine in [place], [place] [address] [place] [address] Ben Dickson APRN, C.N.P. [address] [place] [phone] 09/15/2024 8:00 AM CDT Lab Department of Laboratory Medicine and Pathology, [facility], in [place], [place] [address] [place] [address] Edgar Montgomery M.B.B.S., M.S. [address] [place] [phone] 09/15/2024 10:00 AM CDT Comprehensive Visit [facility] Transplantation [facility] Clinical Regeneration in [place], [place] [address] [place] [address] Edgar Montgomery M.B.B.S., M.S. [address] [place] [phone] Miriam Strickland M.D. [address] [place] [phone] 09/15/2024 11:00 AM CDT Office Visit [facility] in [place], [place] [address] [place] [address] Edgar Montgomery M.B.B.S., M.S. [address] [place] [phone] Discharge Disposition: Home or Self Care 09/15/2024 1:45 PM CDT Infusion Department of Infusion Therapy in [place], [place] [address] [place] [address] Juan Pete M.D. [address] [place] [phone] 09/18/2024 2:15 PM CDT Hospital Encounter Department of Radiology, [facility] in [place], [place] [address] [place] [address] Edgar Montgomery M.B.B.S., M.S. [address] [place] [phone] 09/20/2024 3:00 PM CDT Comprehensive Visit [facility] in [place], [place] [address] [place] [address] Catia Quintana APRN, C.N.P. [address] [place] [phone] 10/03/2024 9:00 AM CDT Appointment Department of Radiology, [facility] in [place], [place] [address] [place] [address] Marisabel Carpenter APRN, C.N.P., D.N.P. [address] [place] [phone] 10/05/2024 12:00 PM CDT Appointment Division of Pulmonary Medicine in [place], [place] [address] [place] [address] Edgar Montgomery M.B.B.S., M.S. [address] [place] [phone] 10/10/2024 7:50 AM CDT Lab Department of Laboratory Medicine and Pathology, [facility] in [place], [place] [address] [place] [address] Marisabel Carpenter APRN, C.N.P., D.N.P. [address] [place] [phone] 10/10/2024 8:00 AM CDT Lab Department of Laboratory Medicine and Pathology, [facility] in [place], [place] [address] [place] [address] Marisabel Carpenter APRN, C.N.P., D.N.P. [address] [place] [phone] 10/10/2024 8:30 AM CDT Nurse [facility] in [place], [place] [address] [place] [address] Marisabel Carpenter APRN, C.N.P., D.N.P. [address] [place] [phone] 10/10/2024 9:20 AM CDT Appointment Department of Radiology, [facility] in [place], [place] [address] [place] [address] Marisabel Carpenter APRN, C.N.P., D.N.P. [address] [place] [phone] 10/10/2024 9:45 AM CDT Appointment Department of Laboratory Medicine and Pathology, [facility] in [place], [place] [address] [place] [address] Marisabel Carpenter APRN, C.N.PSuma, D.N.P. [address] [place] [address] 10/10/2024 1:30 PM CDT Appointment Department of Radiology, [facility] in [place], [place] [address] [place] [address] Marisabel Carpenter APRN, C.N.PSuma, D.N.P. [address] [place] [phone] 10/10/2024 2:45 PM CDT Appointment Department of Radiology, [facility] in [place], [place] [address] [place] [address] Marisabel Carpenter APRN, C.N.PSuma, D.N.P. [address] [place] [phone] 10/11/2024 8:00 AM CDT Office Visit [facility] in [place], [place] [address] [place] [address] Marisabel Carpenter APRN, C.N.PSuma, D.N.P. [address] [place] [phone] 10/11/2024 11:00 AM CDT Comprehensive Visit [facility] in [place], [place] [address] [place] [address] Sree Devlin M.D. [address] [place] [phone] 10/11/2024 1:00 PM CDT Comprehensive Visit Department of Otorhinolaryngology in [place], [place] [address] [place] [address] Randal Urbano P.A.-C., M.S. [address] [place] [address] 10/11/2024 2:00 PM CDT Office Visit [facility] [place] Transplantation and Clinical Regeneration in [place], [place] [address] [place] [address] Hiro Murillo P.A.-C. [address] [place] [phone] 10/11/2024 4:00 PM CDT Comprehensive Visit Department of Dermatology in [place], [place] [address] [place] [phone] Parul Martinez M.D. [address] [place] [phone] 10/12/2024 8:00 AM CDT Telemedicine [facility], [place] Transplantation and Clinical Regeneration in [place], [place] [address] [place] [address] Ervin Mckeon D.O. [address] [place] [phone] 11/01/2024 2:15 PM CDT Appointment Division of Pulmonary Medicine in [place], [place] [address] [place] [phone] Edgar Montgomery M.B.B.S., M.S. [address] [place] [phone] documented as of this encounter Visit Diagnoses Diagnosis Chronic Pain Syndrome documented in this encounter Additional Health Concerns Infection Onset Date Last Indicated Resolved Time Protective Environment 10/10/2022 10/10/2022 Assessment Noted Time PHQ-9 Depression Total Score: 4 06/18/19 24 12:20 PM STACKER DRIVER documented as of this encounter Care Teams Adult Psychiatrist Relationship Specialty Start Date End Date Ana Red MPAS, P.A.-C. [address] [facility] [place] [phone] PCP - General Internal Medicine 12/01/21 [facility] [place] [facility] 08/25/21 documented as of this encounter
--- OUTSIDE RECORDS SUMMARY | 2024-09-14 01:29 | XMS_ITS | Encounter Summary ---
Author Organization [facility] Address [address] [place] [address] Care Team Providers Care Watcher [employer] Name Role Phone Ana Red, P.A.-C. Primary Care Pro vider Reason for Visit * Reason Onset Date Comments Med Refill 08/04/2024 Encounter Details Date Type Department Care Team (Late st Contact Info) Description 08/04/2024 Refill Department of Community Internal Medicine in [place], [place] [address] [place] [phone] Ana Red MPAS, P.A.-C. [address] [place] [phone] Med Refill Social History Tobacco Use Types Packs/Day Years Used Date Smoking Tobacco: Former Cigarettes 1 - 10/12/2021 Passive Smoke Exposure: Never Smokeless Tobacco: Never Comments:No longer smoke Alcohol Use Standard Drinks/Week Comments Never 0 (1 standard drink = 0.6 oz pure alcohol) Havent had any alcohol in about a year or so. [facility] Utilities Answer Date Recorded In the past 12 months has [facility] electric, gas, oil, or water [employer] threatened to shut off services in your [...] Answer Date Recorded PHQ-2 Score 0 08/11/2024 [facility] of Occupat ional Health - Occupational Stress [...] have a [facility] place to live 08/22/2024 Education Answer Date Recorded What is the highest level of school you have completed or the highest degree you have received? Associate degree: occupational, technical, or vocational program 07/16/2021 Comments No Sex and Gender Information Value Date Recorded Sex Assigned at Female 04/12/2021 7:39 PM INSOLE BUFFER Legal Sex Female 7:53 PM INSOLE BUFFER Gender Identity Female 04/12/2021 7:39 PM INSOLE BUFFER Sexual Orientation Straight 04/12/2021 7: 39 PM INSOLE BUFFER documented as of this encounter Miscellaneous Notes * Telephone Encounter - Meena Luz R.N. - 08/07/2024 3:53 PM CDT Vac[employer] Sander notified patient that covering provider has decided to hold off on filling her Dilaudid. HerPCP will be in the office tomorrow morning and will review the request. documented in this encounter Plan of Treatment Upcoming Encounters Date Type Department Care Team (Latest Contact Info) Description 09/14/2024 11:00 AM CDT Appointment Department of Radiology, [facility] in [place], [place] [address] [place] [phone] Noreen Ansari P.A.-C., M.S. [address] [place] [phone] Jesus Figueroa M.D. [address] [place] [phone] 09/14/2024 4:00 PM CDT Telemedicine Division of Pulmonary Medicine in [place], [place] [address] [place] [phone] Ben Dickson APRN, C.N.P. [address] [place] [phone] 09/15/2024 8:00 AM CDT Lab Department of Laboratory Medicine and Pathology, [facility] in [place], [place] [address] [place] [phone] Edgar Montgomery M.B.B.S., M.S. [address] [place] [phone] 09/15/2024 10:00 AM CDT Comprehensive Visit Ramirez Landon [facility] for Transplantation and Clinical Regeneration in [place], [place] [address] [place] [phone] Edgar Montgomery M.B.B.S., M.S. [address] [place] [phone] Miriam Strickland M.D. [address] [place] [address] 09/15/2024 11:00 AM CDT Office Visit Ramirez Navarrete [facility] for Transplantation and Clinical Regeneration in [place], [place] [address] [place] [address] Edgar Montgomery M.B.B.S., M.S. [address] [place] [address] Discharge Disposition: Home or Self Care 09/15/2024 1:45 PM CDT Infusion Department of Infusion Therapy in [place], [place] [address] [place] [address] Juan Pete M.D. [address] [place] [phone] 09/18/2024 2:15 PM CDT Hospital Encounter Department of Radiology, [facility] in [place], [place] [address] [place] [address] Edgar Montgomery M.B.B.S., M.S. [address] [place] [phone] 09/20/2024 3:00 PM CDT Comprehensive [facility] [place] [place] [facility] in [place], [place] [address] [place] [address] Catia Quintana APRN, C.N.P. [address] [place] [phone] 10/03/2024 9:00 AM CDT Appointment Department of Radiology, [facility], in [place], [place] [address] [place] [address] Marisabel Carpenter APRN, C.N.PSuma, D.N.P. [address] [place] [phone] 10/05/2024 12:00 PM CDT Appointment Division of Pulmonary Medicine in [place], [place] [address] [place] [address] Edgar Montgomery M.B.B.S., M.S. [address] [place] [phone] 10/10/2024 7:50 AM CDT Lab Department of Laboratory Medicine and Pathology, [place], [place] [address] [place] [address] Marisabel Carpenter APRN, C.N.PSuma, D.N.P. [address] [place] [phone] 10/10/2024 8:00 AM CDT Lab Department of Laboratory Medicine and Pathology, [facility] in [place], [place] [address] [place] [address] Marisabel Carpenter APRN, C.N.PSuma, D.N.P. [address] [place] [phone] 10/10/2024 8:30 AM CDT Nurse Only Ramirez Nguyen [facility] Clinical Regeneration in [place], [place] [address] [place] [address] Marisabel Carpenter APRN, C.N.P., D.N.P. [address] [place] [phone] 10/10/2024 9:20 AM CDT Appointment Department of Radiology, [facility] in [place], [place] [address] [place] [address] Marisabel Carpenter APRN, C.N.PSuma, D.N.P. [address] [place] [address] 10/10/2024 9:45 AM CDT Appointment Department of Laboratory Medicine and Pathology, [facility] in [place], [place] [address] [place] [address] Marisabel Carpenter APRN, C.N.PSuma, D.N.P. [address] [place] [phone] 10/10/2024 1:30 PM CDT Appointment Department of Radiology, [facility] in [place], [place] [address] [place] [address] Marisabel Carpenter APRN, C.N.PSuma, D.N.P. [address] [place] [phone] 10/10/2024 2:45 PM CDT Appointment Department of Radiology, [facility] in [place], [place] [address] [place] [address] Marisabel Carpenter APRN, Katrin.N.PSuma, D.N.P. [address] [place] [phone] 10/11/2024 8:00 AM CDT Office [facility] in [place], [place] [address] [place] [address] Marisabel Carpenter APRN, C.N.PSuma, D.N.P. [address] [place] [phone] 10/11/2024 11:00 AM CDT Comprehensive Visit [facility] in [place], [place] [address] [place] [phone] Sree Devlin M.D. [address] [place] [phone] 10/11/2024 1:00 PM CDT Comprehensive Visit Department of Otorhinolaryngology in [place], [place] [address] [place] [address] Randal Urbano P.A.-C., M.S. [address] [place] [phone] 10/11/2024 2:00 PM CDT Office Visit Ramirez [facility] in [place], [place] [address] [place] [address] Hiro Murillo P.A.-C. [address] [place] [phone] 10/11/2024 4:00 PM CDT Comprehensive Visit Department of Dermatology in [place], [place] [address] [place] [phone] Parul Martinez M.D. [address] [place] [phone] 10/12/2024 8:00 AM CDT Telemedicine [facility] [place] [place] [facility] and Clinical Regeneration in [place], [place] [address] [place] [address] Ervin Mckeon D.O. [address] [place] [phone] 11/01/2024 2:15 PM CDT Appointment Division of Pulmonary Medicine in [place], [place] [address] [place] [phone] Edgar Montgomery M.B.B.S., M.S. [address] [place] [phone] documented as of this encounter Visit Diagnoses Diagnosis Chronic Pain Syndrome documented in this encounter Additional Health Concerns Infection Onset Date Last Indicated Resolved Time Protective Environment 10/10/2022 10/10/2022 Assessment Noted Time PHQ-9 Depression Total Score: 4 06/18/19 24 12:20 PM INSOLE BUFFER documented as of this encounter Care Teams Watcher [employer] Relationship Specialty Start Date End Date Ana Red MPAS, P.A.-C. [address] [place] [address] PCP - General Internal Medicine 12/01/21 [facility] [place] [facility] 08/25/21 documented as of this encounter
--- OUTSIDE RECORDS SUMMARY | 2024-09-14 01:29 | XMS_ITS | Encounter Summary ---
Author Organization [facility] Address [address] [place] [id number] Care Team Providers Care Driver Starting Gate Name Role Phone Ana Red P.A.-C. Primary Care Pro vider Encounter Details Date Type Department Care Team (Late st Contact Info) Description 08/15/2024 Orders Only Division of Endocrinology in [place], [place] [address] [place] [phone] Catia Quintana, YARITZA, C.N.P. [address] [place] [phone] Social History Tobacco Use Types Packs/Day Years Used Date Smoking Tobacco: Former Cigarettes 1 - 10/12/2021 Passive Smoke Exposure: Never Smokeless Tobacco: Never Comments:Smoked cigarettes f rom age 18-30 about Alcohol Use Standard Drinks/Week Comments Never 0 (1 standard drink = 0.6 oz pure alcohol) Havent had any alcohol in about a year or so. [facility] Utilities Answer Date Recorded In the past 12 months has [employer], gas, oil, or water [employer] threatened to shut off services in your [...] How often do you attend chur or hindu services? Patient declined 02/10/2022 Do you belong to any clubs o r organizations such as lutheran groups, unions, fraternal [...] Answer Date Recorded PHQ-2 Score 0 08/11/2024 [facility] of Occupat ional Health - Occupational Stress [...] living situation today? I have a [facility] place to live 08/22/2024 Education Answer Date Recorded What is the highest level of school you have completed or the highest degree you have received? Associate degree: occupational, technical, or vocational program 07/16/2021 Comments No Sex and Gender Information Value Date Recorded Sex Assigned at Female 04/12/2021 7:39 PM CHIP SILO TENDER Legal Sex Female 7:53 PM CHIP SILO TENDER Gender Identity Female 04/12/2021 7:39 PM CHIP SILO TENDER Sexual Orientation Straight 04/12/2021 7 :39 PM CHIP SILO TENDER documented as of this encounter Plan of Treatment Upcoming Encounters Date Type Department Care Team (Latest Contact Info) Description 09/14/2024 11:00 AM CDT Appointment Department of Radiology, [facility], in [place], [place] [address] [place] [address] Noreen Ansari P.A.-C., M.S. [address] [place] [phone] Jesus Figueroa M.D. [address] [place] [phone] 09/14/2024 4:00 PM CDT Telemedicine Division of Pulmonary Medicine in [place], [place] [address] [place] [address] Ben Dickson, YARITZA, C.N.P. [address] [place] [phone] 09/15/2024 8:00 AM CDT Lab Department of Laboratory Medicine and Pathology, [facility] in [place], [place] [address] [place] [address] Edgar Montgomery M.B.B.S., M.S. [address] [place] [phone] 09/15/2024 10:00 AM CDT [facility] in [place], [place] [address] [place] [address] Edgar Montgomery M.B.B.S., M.S. [address] [place] [phone] Miriam Strickland M.D. [address] [place] [phone] 09/15/2024 11:00 AM CDT Office [facility] in [place], [place] [address] [place] [address] Edgar Montgomery M.B.B.S., M.S. [address] [place] [phone] Discharge Disposition: Home or Self Care 09/15/2024 1:45 PM CDT Infusion Department of Infusion Therapy in [place], [place] [address] [place] [address] Juan Pete M.D. [address] [place] [phone] 09/18/2024 2:15 PM CDT Hospital Encounter Department of Radiology, [facility] in [place], [place] [address] [place] [address] Edgar Montgomery M.B.B.S., M.S. [address] [place] [phone] 09/20/2024 3:00 PM CDT Comprehensive Visit [facility] in [place], [place] [address] [place] [address] Catia Quintana APRN, C.N.P. [address] [place] [phone] 10/03/2024 9:00 AM CDT Appointment Department of Radiology, [facility] in [place], [place] [address] [place] [address] Marisabel Carpenter APRN, C.N.P., D.N.P. [address] [place] [phone] 10/05/2024 12:00 PM CDT Appointment Division of Pulmonary Medicine in [place], [place] [address] [place] [address] Edgar Montgomery M.B.B.S., M.S. [address] [place] [phone] 10/10/2024 7:50 AM CDT Lab Department of Laboratory Medicine and Pathology, [facility] in [place], [place] [address] [place] [address] Marisabel Carpenter APRN, C.N.P., D.N.P. [address] [place] [phone] 10/10/2024 8:00 AM CDT Lab Department of Laboratory Medicine and Pathology, [facility] in [place], [place] [address] [place] [address] Marisabel Carpenter APRN, C.N.P., D.N.P. [address] [place] [phone] 10/10/2024 8:30 AM CDT Nurse Only [facility] in [place], [place] [address] [place] [address] Marisabel Carpenter APRN, C.N.P., D.N.P. [address] [place] [phone] 10/10/2024 9:20 AM CDT Appointment Department of Radiology, [facility] in [place], [place] [address] [place] [address] Marisabel Carpenter APRN, C.N.P., D.N.P. [address] [place] [phone] 10/10/2024 9:45 AM CDT Appointment Department of Laboratory Medicine and Pathology, [facility] in [place], [place] [address] [place] [address] Marisabel Carpenter APRN, C.N.P., D.N.P. [address] [place] [phone] 10/10/2024 1:30 PM CDT Appointment Department of Radiology, [facility] in [place], [place] [address] [place] [address] Marisabel Carpenter APRN, C.N.P., D.N.P. [address] [place] [phone] 10/10/2024 2:45 PM CDT Appointment Department of Radiology, [facility], in [place], [place] [address] [place] [address] Marisabel Carpenter APRN C.N.PSuma, D.N.P. [address] [place] [phone] 10/11/2024 8:00 AM CDT Office Visit [facility] in [place], [place] [address] [place] [address] Marisabel Carpenter APRN, C.N.P., D.N.P. [address] [place] [phone] 10/11/2024 11:00 AM CDT Comprehensive Visit [facility] in [place], [place] [address] [place] [address] Sree Devlin M.D. [address] [place] [phone] 10/11/2024 1:00 PM CDT Comprehensive Visit Department of Otorhinolaryngology in [place], [place] [address] [place] [address] Randal Urbano, P.A.-C., M.S. [address] [place] [phone] 10/11/2024 2:00 PM CDT Office Visit [facility] Transplantation and Clinical Regeneration in [place], [place] [address] [place] [phone] Hiro Murillo P.A.-C. [address] [place] [phone] 10/11/2024 4:00 PM CDT Comprehensive Visit Department of Dermatology in [place], [place] [address] [place] [phone] Parul Martinez M.D. [address] [place] [phone] 10/12/2024 8:00 AM CDT Telemedicine [facility] Transplantation and Clinical Regeneration in [place], [place] [address] [place] [phone] Ervin Mckeon D.O. [address] [place] [phone] 11/01/2024 2:15 PM CDT Appointment Division of Pulmonary Medicine in [place], [place] [address] [place] [phone] Edgar Montgomery M.B.B.S., M.S. [address] [place] [phone] documented as of this encounter Visit Diagnoses Not on filedocumented in this encounter Additional Health Concerns Infection Onset Date Last Indicated Resolved Time Protective Environment 10/10/2022 10/10/2022 Assessment Noted Time PHQ-9 Depression Total Score: 4 08/12/19 25 3:31 PM CDT documented as of this encounter Care Teams Driver Starting Gate Relationship Specialty Start Date End Date Ana Red MPAS, P.Ana-C. [address] [phone] PCP - General Internal Medicine 12/01/21 [facility] [place] [facility] 08/25/21 documented as of this encounter
--- OUTSIDE RECORDS SUMMARY | 2024-09-14 01:29 | XMS_ITS | Encounter Summary ---
Author Organization [facility] Address [address] [place] [address] Care Team Providers Care Blood Bank Order Control Clerk Name Role Phone Ana Red, P.A.-C. Primary Care Pro vider Encounter Details Date Type Department Care Team (Late st Contact Info) Description 07/27/2024 Clinical Communication Department of Community Internal Medicine in [place], [place] [address] [place] [phone] Ana Red MPAS, P.A.-C. [address] [place] [phone] Social History Tobacco Use Types Packs/Day Years Used Date Smoking Tobacco: Former Cigarettes 1 - 10/12/2021 Passive Smoke Exposure: Never Smokeless Tobacco: Never Comments:No longer smoke Alcohol Use Standard Drinks/Week Comments Never 0 (1 standard drink = 0.6 oz pure alcohol) Havent had any alcohol in about a year or so. [facility] Utilities Answer Date Recorded In the past 12 months has [employer], gas, oil, or water [employer] threatened to shut off services in your [...] How often do you attend chur or oriental orthodox services? Patient declined 02/10/2022 Do you belong to any clubs o r organizations such as jainism groups, unions, fraternal [...] Answer Date Recorded PHQ-2 Score 0 08/11/2024 [facility] of Occupat ional Health - Occupational Stress [...] situation today? I have a [facility] place to live 08/22/2024 Education Answer Date Recorded What is the highest level of school you have completed or the highest degree you have received? Associate degree: occupational, technical, or vocational program 07/16/2021 Comments No Sex and Gender Information Value Date Recorded Sex Assigned at Female 04/12/2021 7:39 PM CUSTOMS EXAMINER Legal Sex Female 7:53 PM CUSTOMS EXAMINER Gender Identity Female 04/12/2021 7:39 PM CUSTOMS EXAMINER Sexual Orientation Straight 04/12/2021 7: 39 PM CUSTOMS EXAMINER documented as of this encounter Miscellaneous Notes * Telephone Encounter - Ankita Peña C.M.A. - 07/27/2024 5:05 PM CDT SUBJECTIVE CHIEF COMPLAINT / REASON FOR CALL No chief complaint on file. Information Discussed Called and informed patient of prescriptions sent to pharmacy per Ana Deanovic, P.A.-C. PLAN Disposition/Recommendation: self-care . appropriate at this time, patient encouraged to call back with questions Information/Education: patient/caller able to teach back Caller agreeable to plan of care: yes The following references were used: provider Ana Red P.A.-C. documented in this encounter Plan of Treatment Upcoming Encounters Date Type Department Care Team (Latest Contact Info) Description 09/14/2024 11:00 AM CDT Appointment Department of Radiology, [facility] in [place], [place] [address] [place] [phone] Noreen Ansari P.A.-C., M.S. [address] [place] [phone] Jesus Figueroa M.D. [address] [place] [phone] 09/14/2024 4:00 PM CDT Telemedicine Division of Pulmonary Medicine in [address] [phone] Ben Dickson, YARITZA, C.N.P. [address] [place] [phone] 09/15/2024 8:00 AM CDT Lab Department of Laboratory Medicine and Pathology, [facility] in [place], [place] [address] [place] [phone] Edgar Montgomery M.B.B.S., M.S. [address] [place] [phone] 09/15/2024 10:00 AM CDT Comprehensive Visit Ramirez Landon [facility] for Trans[facility] and Clinical Regeneration in [place], [place] [address] [place] [address] Edgar Montgomery M.B.B.SSuma, M.S. [address] [place] [address] Miriam Strickland M.D. [address] [place] [phone] 09/15/2024 11:00 AM CDT Office Visit Ramirez diaz [facility] Transplantation and Clinical Regeneration in [place], [place] [address] [place] [address] Edgar Montgomery M.B.B.S., M.S. [address] [place] [phone] Discharge Disposition: Home or Self Care 09/15/2024 1:45 PM CDT Infusion Department of Infusion Therapy in [place], [place] [address] [place] [address] Juna Pete M.D. [address] [place] [phone] 09/18/2024 2:15 PM CDT Hospital Encounter Department of Radiology, [facility], in [place], [place] [address] [place] [address] Edgar Montgomery M.B.B.S., M.S. [address] [place] [phone] 09/20/2024 3:00 PM CDT [facility] in [place], [place] [address] [place] [address] Catia Quintana APRN, C.N.P. [address] [place] [phone] 10/03/2024 9:00 AM CDT Appointment Department of Radiology, [facility] in [place], [place] [address] [place] [address] Marisabel Carpenter APRN, C.N.P., D.N.P. [address] [place] [phone] 10/05/2024 12:00 PM CDT Appointment Division of Pulmonary Medicine in [place], [place] [address] [place] [address] Edgar Montgomery M.B.B.S., M.S. [address] [place] [phone] 10/10/2024 7:50 AM CDT Lab Department of Laboratory Medicine and Pathology, [facility] in [place], [place] [address] [place] [address] Marisabel Carpenter APRN, C.N.P., D.N.P. [address] [place] [phone] 10/10/2024 8:00 AM CDT Lab Department of Laboratory Medicine and Pathology, [facility] in [place], [place] [address] [place] [address] Marisabel Carpenter APRN, C.N.P., D.N.P. [address] [place] [phone] 10/10/2024 8:30 AM CDT Nurse Only [facility] in [place], [place] [address] [place] [address] Marisabel Carpenter APRN, C.N.P., D.N.P. [address] [place] [phone] 10/10/2024 9:20 AM CDT Appointment Department of Radiology, [facility] in [place], [place] [address] [place] [address] Marisabel Carpenter APRN, C.N.P., D.N.P. [address] [place] [phone] 10/10/2024 9:45 AM CDT Appointment Department of Laboratory Medicine and Pathology, [place], [place] [address] [place] [address] Marisabel Carpenter APRN, C.N.P., D.N.P. [address] [place] [phone] 10/10/2024 1:30 PM CDT Appointment Department of Radiology, [facility] in [place], [place] [address] [place] [address] Marisabel Carpenter APRN, C.N.P., D.N.P. [address] [place] [phone] 10/10/2024 2:45 PM CDT Appointment Department of Radiology, [facility], in [place], [place] [address] [place] [address] Marisabel Carpenter APRN, C.N.P., D.N.P. [address] [place] [phone] 10/11/2024 8:00 AM CDT [facility] in [place], [place] [address] [place] [address] Marisabel Carpenter APRN, C.N.P., D.N.P. [address] [place] [phone] 10/11/2024 11:00 AM CDT [facility] in [place], [place] [address] [place] [address] Sree Devlin M.D. [address] [place] [phone] 10/11/2024 1:00 PM CDT Comprehensive Visit Department of Otorhinolaryngology in [place], [place] [address] [place] [address] Randal Urbano, P.Silvano.-C., M.S. [address] [place] [phone] 10/11/2024 2:00 PM CDT Office Visit [facility] in [place], [place] [address] [place] [phone] Hiro Murillo P.A.-C. [address] [place] [phone] 10/11/2024 4:00 PM CDT Comprehensive Visit Department of Dermatology in [place], [place] [address] [place] [address] Parul Martinez M.D. [address] [place] [phone] 10/12/2024 8:00 AM CDT Telemedicine [facility] Transplantation and Clinical Regeneration in [place], [place] [address] [place] [address] Ervin Mckeon D.O. [address] [place] [phone] 11/01/2024 2:15 PM CDT Appointment Division of Pulmonary Medicine in [place], [place] [address] [place] [address] Edgar Montgomery M.B.BSumaS., M.S. [address] [place] [address] documented as of this encounter Visit Diagnoses Not on filedocumented in this encounter Additional Health Concerns Infection Onset Date Last Indicated Resolved Time Protective Environment 10/10/2022 10/10/2022 Assessment Noted Time PHQ-9 Depression Total Score: 4 06/18/19 24 12:20 PM CUSTOMS EXAMINER documented as of this encounter Care Teams Blood Bank Order Control Clerk Relationship Specialty Start Date End Date Ana Red MPAS, P.A.-C. [address] [place] [phone] PCP - General Internal Medicine 12/01/21 [facility] [place] [facility] 08/25/21 documented as of this encounter
--- OUTSIDE RECORDS SUMMARY | 2024-09-14 01:29 | XMS_ITS | Encounter Summary ---
Author Organization [facility] Address [address] [place] [phone] Care Team Providers Care Judge'S Clerk Name Role Phone Ana Red P.A.-C. Primary Care Pro vider Reason for Referral * Specialty Diagnoses / Procedures Referred By Meir lara Referred To Contact Diagnoses Diabetes Mellitus Due To Underlying Condition With Ketoacidosis Without Coma (HCC) Catia Quintana APRN, C.N.P. [address] [place] [phone] Phone: tel: fax: [facility] Referral ID Status Reason Start Date Expiration Date Visits Re quested Visits Authorized Reason for Visit * Transplant (Routine) - Closed Specialty Diagnoses / Procedures Referred By Meir t Referred To Contact Transplant Diagnoses Diabetes Mellitus Due To Underlying Condition With Ketoacidosis Without Coma (HCC) David Salazar APRN, C.N.P., D.N.P. [address] [place] [phone] Phone: tel: fax: [facility] Referral ID Status Reason Start Date Expiration Date Visits Re quested Visits Authorized [id number] Closed 06/27/2024 12/27/2025 1 1 Encounter Details Date Type Department Care Team (Latest Contact Info) Description 08/15/2024 1:30 PM CDT Comprehensive Visit [facility] in [place], [place] [address] [place] [phone] David Salazar APRN, C.N.P., D.N.P. 200 [place] [phone] Catia Quintana APRN, C.N.P. [address] [place] [phone] Diabetes Mellitus Due To Underlying Condition With Ketoacidosis Without Coma (HCC) Social History Tobacco Use Types Packs/Day Years Used Date Smoking Tobacco: Former Cigarettes 1 - 10/12/2021 Passive Smoke Exposure: Never Smokeless Tobacco: Never Comments:Smoked cigarettes f rom age 18-30 about Alcohol Use Standard Drinks/Week Comments Never 0 (1 standard drink = 0.6 oz pure alcohol) Havent had any alcohol in about a year or so. [facility] Utilities Answer Date Recorded In the past 12 months has [facility] [email or web address], gas, oil, or water [employer] threatened to shut off services in your [...] often do you attend chur ch or lutheran services? Patient declined 02/10/2022 Do you belong to any clubs o r organizations such as restoration groups, unions, fraternal [...] Answer Date Recorded PHQ-2 Score 0 08/11/2024 [facility] of Occupat ional Health - Occupational Stress [...] your living situation today? [facility] 07/25/2024 Education Answer Date Recorded What is the highest level of school you have completed or the highest degree you have received? Associate degree: occupational, technical, or vocational program 07/16/2021 Comments No Sex and Gender Information Value Date Recorded Sex Assigned at Female 04/12/2021 7:39 PM TRAUMA COORDINATOR Legal Sex Female 7:53 PM TRAUMA COORDINATOR Gender Identity Female 04/12/2021 7:39 PM TRAUMA COORDINATOR Sexual Orientation Straight 04/12/2021 7: 39 PM TRAUMA COORDINATOR documented as of this encounter Progress Notes * Catia Quintana APRN, C.N.P. - 08/15/2024 1:30 PM CDT [facility] Endocrinology, Diabetes, and Nutrition Date of Visit: 08/15/2024 Clinician: Catia Quintana APRN, C.N.P. Chief Complaint: follow-up diabetes mellitus History of Present Illness: Catia PatricaSuma Nannette is a 34 y.o. 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 Subjective: Review of Systems Endocrine #1 Diabetes mellitus, Diabetes Mellitus Type IIIC Type of diabetes: initially diagnosed with steroid induced hyperglycemia following transplant. Diabetes mellitus diagnosed 05/2024, patient related to Prednisone. Low c-peptide readings with chronic pancreatitis. Previous hospitalization for DKA, 06/21/2024 glucose 976 mg/dl, anion gap unable to be ca lculated, bicarbonate <5, beta-hydroxybutyrate 14.0, pH 6.89. Patient treated per DKA protocol with IV insulin infusion. Patient does not recall leaving home or being admitted to hospital for DKA.Reports polydipsia and polyuria prior to admission, reports vomiting. Patient has had two additional hospitalizations for abdominal pain in July 2024. Diagnostic CGM in July 2024. Previous therapy previous use of NPH insulin. Current therapy: insulin Aspart 4 units AC plus correction scale 2 units for every 40 points above 180 mg/dl Insulin glargine 7 units bid, late AM at evening. Patient using Freestyle Kristina, reports labile glucose readings. Patient has not had comprehensive education for CGM. 7-day average 216 mg/dl Time in range Very high 26% High 45% 29% within range 0% low and very low range. Hypoglycemia: positive, reports no pattern. Reports feeling lightheaded, hot and dizzy, treats withfruit juice. Severe hypoglycemia none. Presence of diabetes complications: Last dilated eye exam: needs update. Patient needs to schedule appointment. Family history of diabetes mellitus paternal grandfather. Diet 1-2 meals per day. Patient may have snack in day. Patient tolerates Ensure Clear. Consumption of sugared beverages may have Sprite every two weeks. Physical activity walking, yoga. ASCVD none. Therapy: none. Non-statin therapy: none. #2 Osteoporosis Duration of disease based on multiple vertebral fractures. Low energy fractures vertebral fractures. Falls none. Family history of osteopenia/osteoporosis/parental hip fractures: none. Alcohol use none. Tobacco use none. Glucocorticoid use Prednisone long-term use. Therapy: Teriparatide daily initiated in 10/2023, patient reports she has not had medication while in hospital. Calcium intake: yogurt, cheese. Vitamin D supplement: 2000 IU daily. Dental work/pending tooth extractions: none. Kidney stones none. Patient has IUD in place, reports no bleeding. May spot intermittently. The following portions of the patient's history were reviewed and updated as appropriate: allergies, current medications, family history, medical history, social history, surgical history and problemlist. Objective: Height 152 cm Weight 54.5 kg Temperature 36 degrees C Pulse 109 Blood pressure 97/66 Physical Exam: General: Pleasant female, no apparent distress Eye: Pupils equal and reactive to light. Neck: Supple. Lungs: Easy respiratory effort. Extremities: Normal sensation to monofilament bilaterally. Feet warm and dry. Nails trimmed. No signs of breakdown. Mental: Alert and oriented. Interactive and answers questions appropriately. Gait: Stable Assessment and Plan: Catia Brunson is a 34 y.o. female who presents for follow-up diabetes mellitus. #1 Liver transplant #2 Diabetes Mellitus Type IIIC. Currently on multiple daily injection program with Novolog 4 units AC plus correction scale 2 units for every 40 points above 180 mg/dl and Lantus 7 units bid. Patientreports lability in glucose levels. 7- day average 216 mg/dl. Patient had not had education regarding CGM. Orders placed for Diabetes technology clinic for education related to Freestyle Kristina 3. Reviewed macro and microvascular complications of diabetes mellitus. Patient understands how to treat glucose less than 70 mg/dl. Reviewed DKA symptoms and when to seek treatment. Recommend annual dilated eye exam. Patient would benefit from comprehensive diabetes education. Transplant endocrine follow-up visit scheduled in October 2024. #3 Osteoporosis. Currently on Teriparatide. BMD planned for October 2024. Adequate calcium and vitaminD to continue. Avoid situations that would provoke falls. I spent a total of 45 minutes with patient and greater than 50% of that time was spent on counseling and coordination of care. All questions were answered and patient verbalizes understanding. documented in this encounter Plan of Treatment Upcoming Encounters Date Type Department Care Team (Latest Contact Info) Description 09/14/2024 11:00 AM CDT Appointment Department of Radiology, [facility], in [place], [place] [address] [place] [phone] Noreen Ansari P.A.-C., M.S. [address] [place] [phone] Jesus Figueroa M.D. [address] [place] [phone] 09/14/2024 4:00 PM CDT Telemedicine Division of Pulmonary Medicine in [place], [place] [address] [place] [address] Ben Dickson APRN, C.N.P. [address] [place] [phone] 09/15/2024 8:00 AM CDT Lab Department of Laboratory Medicine and Pathology, [facility] in [place], [place] [address] [place] [address] Edgar Montgomery M.B.B.S., M.S. [address] [place] [phone] 09/15/2024 10:00 AM CDT [facility] in [place], [place] [address] [place] [phone] Edgar Montgomery M.B.B.S., M.S. [address] [place] [phone] Miriam Strickland M.D. [address] [place] [phone] 09/15/2024 11:00 AM CDT Office Visit [facility] for Transplantation and Clinical Regeneration in [place], [place] [address] [place] [phone] Edgar Montgomery M.B.B.S., M.S. [address] [place] [phone] Discharge Disposition: Home or Self Care 09/15/2024 1:45 PM CDT Infusion Department of Infusion Therapy in [place], [place] [address] [place] [phone] Juan Pete M.D. [address] [place] [phone] 09/18/2024 2:15 PM CDT Hospital Encounter Department of Radiology, [facility], in [place], [place] [address] [place] [address] Edgar Montgomery M.B.B.S., M.S. [address] [place] [address] 09/20/2024 3:00 PM CDT Comprehensive Visit [facility] for Transplantation and Clinical Regeneration in [place], [place] [address] [place] [address] Catia Quintana APRN, C.N.P. [address] [place] [phone] 10/03/2024 9:00 AM CDT Appointment Department of Radiology, [facility], in [place], [place] [address] [place] [address] Marisabel Carpenter APRN, C.N.P., D.N.P. [address] [place] [phone] 10/05/2024 12:00 PM CDT Appointment Division of Pulmonary Medicine in [place], [place] [address] [place] [address] Edgar Montgomery M.B.B.S., M.S. [address] [place] [phone] 10/10/2024 7:50 AM CDT Lab Department of Laboratory Medicine and Pathology, [facility], in [place], [place] [address] [place] [address] Marisabel Carpenter APRN, C.N.P., D.N.P. [address] [place] [address] 10/10/2024 8:00 AM CDT Lab Department of Laboratory Medicine and Pathology, [facility] in [place], [place] [address] [place] [address] Marisabel Carpenter APRN, C.N.P., D.N.P. [address] [place] [address] 10/10/2024 8:30 AM CDT Nurse Only Ramirez diaz [facility] for Transplantation and Clinical Regeneration in [place], [place] [address] [place] [address] Marisabel Carpenter APRN, C.N.P., D.N.P. [address] [place] [phone] 10/10/2024 9:20 AM CDT Appointment Department of Radiology, [place], [place] [address] [place] [address] Marisabel Carpenter APRN, C.N.P., D.N.P. [address] [place] [phone] 10/10/2024 9:45 AM CDT Appointment Department of [place] [address] [place] [phone] Marisabel Carpenter APRN, C.N.P., D.N.P. [address] [place] [phone] 10/10/2024 1:30 PM CDT Appointment Department of Radiology, [facility], [place] [address] [place] [address] Marisabel Carpenter APRN, C.N.PSuma, D.N.P. [address] [place] [phone] 10/10/2024 2:45 PM CDT Appointment Department of Radiology, [facility], in [place], [place] [address] [place] [address] Marisabel Carpenter APRN, C.N.P., D.N.P. [address] [place] [phone] 10/11/2024 8:00 AM CDT Office Visit [facility] for Transplantation and Clinical Regeneration in [place], [place] [address] [place] [address] Marisabel Carpenter APRN, C.N.P., D.N.P. [address] [place] [phone] 10/11/2024 11:00 AM CDT Comprehensive Visit [facility] in [place], [place] [address] [place] [address] Sree Devlin M.D. [address] [place] [phone] 10/11/2024 1:00 PM CDT Comprehensive Visit Department of Otorhinolaryngology in [place], [place] [address] [place] [address] Randal Urbano P.A.Jordan., M.S. [address] [place] [phone] 10/11/2024 2:00 PM CDT Office Visit [facility] for Transplantation and Clinical Regeneration in [place], [place] [address] [place] [phone] Hiro Murillo P.A.-C. [address] [place] [phone] 10/11/2024 4:00 PM CDT Comprehensive Visit Department of Dermatology in [place], [place] [address] [place] [phone] Parul Martinez M.D. [address] [place] [phone] 10/12/2024 8:00 AM CDT Telemedicine Ramirez Navarrete [facility] Transplantation and Clinical Regeneration in [place], [place] [address] [place] [phone] Ervin Mckeon D.O. [address] [place] [phone] 11/01/2024 2:15 PM CDT Appointment Division of Pulmonary Medicine in [place], [place] [address] [place] [phone] Edgar Montgomery M.B.B.S., M.S. [address] [place] [phone] Scheduled Referrals Name Type Priority Associated Diagnoses Orde r Schedule Nutrition - [place] lineman visit (clinic) Outpatient Referral Routine Diabetes Mellitus Due To Underlying Condition With Ketoacidosis Without Coma (HCC) Expected: 08/15/2024, Expires: 08/15/2025 documented as of this encounter Visit Diagnoses Diagnosis Diabetes Mellitus Due To Underlying Condition With Ketoacidosis Without Coma (HCC) documented in this encounter Additional Health Concerns Infection Onset Date Last Indicated Resolved Time Protective Environment 10/10/2022 10/10/2022 Assessment Noted Time PHQ-9 Depression Total Score: 4 08/12/19 25 3:31 PM CDT documented as of this encounter Care Teams Judge'S Clerk Relationship Specialty Start Date End Date Ana Red MPAS, P.A.-C. [address] [facility] ADI Chua [phone] PCP - General Internal Medicine 12/01/21 [facility] 08/25/21 documented as of this encounter
--- OUTSIDE RECORDS SUMMARY | 2024-09-14 01:29 | XMS_ITS | Encounter Summary ---
Author Organization [facility] Address [address] [place] [address] Care Team Providers Care Lab Specialist Name Role Phone Ana Red P.A.-C. Primary Care Pro vider Reason for Visit * Behavioral Health (Routine) - Closed Specialty Diagnoses / Procedures Referred By Contact Referred To Contact Psychiatry / [facility] Diagnoses Chronic Pain Syndrome Procedures [facility] Programs SC HLTH BHV IVNTJ GRP 1ST 30 SC HLTH BHV IVNTJ GRP EA ADDL 15 Marquis Young, Ph.D., L.P. [address] [place] [phone] Phone: tel:[phone] fax:[phone] [facility] Referral ID Status Reason Start Date Expiration Date Visits Re quested Visits Authorized [id number] Closed 05/02/2024 05/02/2025 2 2 Encounter Details Date Type Department Care Team (Latest Contact Info) Description 08/14/2024 8:00 AM CDT Clinical Support [facility] in [place], [place] [address] [place] [phone] Marquis Young, Ph.D., L.P. [address] [place] [phone] Conor Vega, Ph.D., L.P. [address] [place] [address] [place] [address] Pain Abdominal Chronic (Primary Dx); Chronic Pain Syndrome Social History Tobacco Use Types Packs/Day Years Used Date Smoking Tobacco: Former Cigarettes 1 - 10/12/2021 Passive Smoke Exposure: Never Smokeless Tobacco: Never Comments:Smoked cigarettes f rom age 18-30 about Alcohol Use Standard Drinks/Week Comments Never 0 (1 standard drink = 0.6 oz pure alcohol) Havent had any alcohol in about a year or so. [facility] [employer] Answer Date Recorded In the past 12 months has e Prescription Eyewear, gas, oil, or water [employer] threatened to shut off services in your [...] 0 08/11/2024 [facility] - Occupational [...] Sex Assigned at Female 04/12/2021 7:39 PM YOKE SETTER Legal Sex Female 7:53 PM YOKE SETTER Gender Identity Female 04/12/2021 7:39 PM YOKE SETTER Sexual Orientation Straight 04/12/2021 7: 39 PM YOKE SETTER documented as of this encounter Miscellaneous Notes * Group Note - Conor Vega, Ph.D., L.P. - 08/14/2024 8:00 AM CDT The patient attended Pain Psychology Behavioral Health Group. Number of patients in group: 7. Group facilitated by : Osmin Vega, Ph.D., L.P. Topic and Goals of Group session: Pain Rehabilitation Executive Program Day One Learning Methods Used: class/group, experiential practice, printed materials, and psychologist guided discussion. CHIEF COMPLAINT/PURPOSE OF VISIT Outing Pain Rehabilitation Executive Program OBJECTIVE Day one PREP programming morning session Ms. Catia Brunson attended PREP program morning groups (4.0 hours) facilitated by Osmin Vega, Ph.D., L.P.. She was 1 of 7 participants. Activities included group introductions and orientation, discussion topics of understanding pain physiology, acute vs. chronic pain, and continuum of t reatment options. The goals for morning session are to have an improved understanding of the differences between acute and chronic pain and an understanding of central sensitization and implications for treatment. Patient was attentive and engaged in discussion. Mood was calm. Affect was congruent. No self-harm ideation was endorsed. Thought process was within normal limits. Speech was linear and coherent. Behaviors were appropriately interactive with peers and cooperative with group sales engineering manager. Insight and judgment were adequate. Day one PREP programming afternoon session Ms. Brunson attended PREP program afternoon groups (2.0 hours) facilitated by Osmin Vega, Ph.D., L.P. She was 1 of 7 participants. Sessions included overview of evidence-based treatments for chronic pain and introduction to self- management techniques. Pain Rehabilitation concepts discussed included autonomic nervous system management strategies, and education on the benefits of changing pain cognitions and pain behaviors as well as benefits of a neutral response. Therapeutic interventions: Identification of goals toward self-management of chronic pain. Patient was attentive and engaged in discussion. Mood was calm. Affect was congruent. No self-harm ideation was endorsed. Thought process was within normal limits. Speech was linear and coherent. Behaviors were appropriately interactive with peers and cooperative with group sales engineering manager. Insight and judgment were adequate. ASSESSMENT / PLAN Summary of morning session: Ms. Brunson participated in discussion and education about chronic pain and symptoms. She was active in providing examples and forthcoming in discussing of desire for improved functioning. She noted the challenging situation that she has been as she continues to experience difficulties with pain following liver transplant. She shared that there have been medical options that could have helped her circumstances in the past that are no longer available to her. She wasopen to learning techniques to decrease her pain and improve her functioning. Summary of afternoon session: Ms. Brunson has completed day one of pain rehabilitation executive program (PREP). She was attentive and engaged, and taking notes throughout the session. She was encouraged to identify and challenge negative pain related thoughts, engage in at least one enjoyable acti vity, and to practice at least one relaxation exercises evening. She plans to return tomorrow for day two of the program. Diagnosis 1. Pain Abdominal Chronic 2. Chronic Pain Syndrome Time Spent with Patient: 360 minutes Signed by: Osmin Vega, Ph.D., L.P. 08/14/2024 4:52 PM CDT documented in this encounter Plan of Treatment Upcoming Encounters Date Type Department Care Team (Latest Contact Info) Description 09/14/2024 11:00 AM CDT Appointment Department of Radiology, [facility], in [place], [place] [address] [place] [phone] Noreen Ansari P.A.-C., M.S. [address] [place] [phone] Jesus Figueroa M.D. [address] [place] [phone] 09/14/2024 4:00 PM CDT Telemedicine Division of Pulmonary Medicine in [place], [place] [address] [place] [address] Ben Dickson APRN, C.N.P. [address] [place] [phone] 09/15/2024 8:00 AM CDT Lab Department of Laboratory Medicine and Pathology, [facility], in [place], [place] [address] [place] [address] Edgar Montgomery M.B.B.S., M.S. [address] [place] [phone] 09/15/2024 10:00 AM CDT [facility] [place], [place] [address] [place] [address] Edgar Montgomery M.B.B.S., M.S. [address] [place] [phone] Miriam Strickland M.D. [address] [place] [phone] 09/15/2024 11:00 AM CDT [facility] in [place], [place] [address] [place] [phone] Edgar Montgomery M.B.B.S., M.S. [address] [place] [phone] Discharge Disposition: Home or Self Care 09/15/2024 1:45 PM CDT Infusion Department of Infusion Therapy in [place], [place] [address] [place] [address] Juan Pete M.D. [address] [place] [phone] 09/18/2024 2:15 PM CDT Hospital Encounter Department of Radiology, [facility] in [place], [place] [address] [place] [address] Edgar Montgomery M.B.B.S., M.S. [address] [place] [phone] 09/20/2024 3:00 PM CDT Comprehensive Visit [facility] in [place], [place] [address] [place] [address] Catia Quintana APRN, C.N.P. [address] [place] [phone] 10/03/2024 9:00 AM CDT Appointment Department of Radiology, [facility] in [place], [place] [address] [place] [address] Marisabel Carpenter APRN, C.N.PSuma, D.N.P. [address] [place] [phone] 10/05/2024 12:00 PM CDT Appointment Division of Pulmonary Medicine in [place], [place] [address] [place] [address] Edgar Montgomery M.B.B.S., M.S. [address] [place] [phone] 10/10/2024 7:50 AM CDT Lab Department of Laboratory Medicine and Pathology, [facility], in [place], [place] [address] [place] [address] Marisabel Carpenter APRN, C.N.P., D.N.P. [address] [place] [address] 10/10/2024 8:00 AM CDT Lab Department of Laboratory Medicine and Pathology, [facility] in [place], [place] [address] [place] [address] Marisabel Carpenter APRN, C.N.P., D.N.P. [address] [place] [phone] 10/10/2024 8:30 AM CDT Nurse Only Ramirez diaz [facility] in [place], [place] [address] [place] [address] Marisabel Carpenter APRN, C.N.P., D.N.P. [address] [place] [phone] 10/10/2024 9:20 AM CDT Appointment Department of Radiology, [facility] in [place], [place] [address] [place] [address] Marisabel Carpenter APRN, C.N.P., D.N.P. [address] [place] [phone] 10/10/2024 9:45 AM CDT [facility] [place] [place] [address] [place] [address] Marisabel Carpenter APRN, C.N.P., D.N.P. [address] [place] [phone] 10/10/2024 1:30 PM CDT Appointment Department of Radiology, [facility], in [place], [place] [address] [place] [address] Marisabel Carpenter APRN, C.N.P., D.N.P. [address] [place] [phone] 10/10/2024 2:45 PM CDT Appointment Department of Radiology, [facility], in [place], [place] [address] [place] [address] Marisabel Carpenter APRN, C.N.PSuma, D.N.P. [address] [place] [phone] 10/11/2024 8:00 AM CDT Office Visit [facility] in [place], [place] [address] [place] [address] Marisabel Carpenter APRN, C.N.P., D.N.P. [address] [place] [phone] 10/11/2024 11:00 AM CDT Comprehensive Visit [facility] in [place], [place] [address] [place] [address] Sree Devlin M.D. [address] [place] [phone] 10/11/2024 1:00 PM CDT Comprehensive Visit Department of Otorhinolaryngology in [place], [place] [address] [place] [address] Randal Urbano P.A.-C., M.S. [address] [place] [phone] 10/11/2024 2:00 PM CDT Office Visit [facility] in [place], [place] [address] [place] [phone] Hiro Murillo P.A.-C. [address] [place] [phone] 10/11/2024 4:00 PM CDT Comprehensive Visit Department of Dermatology in [place], [place] [address] [place] [phone] Parul Martinez M.D. [address] [place] [phone] 10/12/2024 8:00 AM CDT Telemedicine [facility] Trans[facility] Clinical [facility] in [place], [place] [address] [place] [phone] Ervin Mckeon D.O. [address] [place] [phone] 11/01/2024 2:15 PM CDT Appointment Division of Pulmonary Medicine in [place], [place] [address] [place] [phone] Edgar Montgomery M.B.B.S., M.S. [address] [place] [phone] documented as of this encounter Visit Diagnoses Diagnosis Pain Abdominal Chronic- Primary Chronic Pain Syndrome documented in this encounter Additional Health Concerns Infection Onset Date Last Indicated Resolved Time Protective Environment 10/10/2022 10/10/2022 Assessment Noted Time PHQ-9 Depression Total Score: 4 08/12/19 25 3:31 PM CDT documented as of this encounter Care Teams Lab Specialist Relationship Specialty Start Date End Date Ana Red MPAS, PVentura-C. [address] [place] [address] [place] [address] PCP - General Internal Medicine 12/01/21 [facility] lab 08/25/21 documented as of this encounter
--- OUTSIDE RECORDS SUMMARY | 2024-09-14 01:29 | XMS_ITS | Encounter Summary ---
Author Organization [facility] Address [address] [place] [phone] Care Team Providers Care Bread Pan Greaser Name Role Phone Ana Red P.A.-C. Primary Care Pro vider Encounter Details Date Type Department Care Team (Late st Contact Info) Description 07/27/2024 Orders Only Ramirez diaz [facility] in [place], [place] [address] [place] [phone] Noreen Ansari P.A.-C., M.S. [address] [place] [phone] Social History Tobacco Use Types Packs/Day Years Used Date Smoking Tobacco: Former Cigarettes 1 - 10/12/2021 Passive Smoke Exposure: Never Smokeless Tobacco: Never Comments:No longer smoke Alcohol Use Standard Drinks/Week Comments Never 0 (1 standard drink = 0.6 oz pure alcohol) Havent had any alcohol in about a year or so. [facility] Utilities Answer Date Recorded In the past 12 months has e electric, gas, oil, or water Pager threatened to shut off services in your [...] How often do you attend chur or jain services? Patient declined 02/10/2022 Do [...] Answer Date Recorded PHQ-2 Score 0 08/11/2024 [facility] - Occupational Stress [...] your living situation today? I have a [facility] place to live 07/25/2024 Education Answer Date Recorded What is the highest level of school you have completed or the highest degree you have received? Associate degree: occupational, technical, or vocational program 07/16/2021 Comments No Sex and Gender Information Value Date Recorded Sex Assigned at Female 04/12/2021 7:39 PM CASH SHORTAGE INVESTIGATOR Legal Sex Female 7:53 PM CASH SHORTAGE INVESTIGATOR Gender Identity Female 04/12/2021 7:39 PM CASH SHORTAGE INVESTIGATOR Sexual Orientation Straight 04/12/2021 7: 39 PM CASH SHORTAGE INVESTIGATOR documented as of this encounter Plan of Treatment Upcoming Encounters Date Type Department Care Team (Latest Contact Info) Description 09/14/2024 11:00 AM CDT Appointment Department of Radiology, [facility], in [place], [place] [address] [place] [address] Noreen Ansari P.A.-C., M.S. [address] [place] [phone] Jesus Figueroa M.D. [address] [place] [phone] 09/14/2024 4:00 PM CDT Telemedicine Division of Pulmonary Medicine in [place], [place] [address] [place] [address] Ben Dickson APRN, C.N.P. [address] [place] [phone] 09/15/2024 8:00 AM CDT Lab Department of Laboratory Medicine and Pathology, [facility] in [place], [place] [address] [place] [phone] Edgar Montgomery M.B.B.S., M.S. [address] [place] [phone] 09/15/2024 10:00 AM CDT Comprehensive Visit [facility] in [place], [place] [address] [place] [address] Edgar Montgomery M.B.B.S., M.S. [address] [place] [phone] Miriam Strickland M.D. [address] [place] [phone] 09/15/2024 11:00 AM CDT Office Visit [facility] in [place], [place] [address] [place] [address] Edgar Montgomery M.B.B.S., M.S. [address] [place] [phone] Discharge Disposition: Home or Self Care 09/15/2024 1:45 PM CDT Infusion Department of Infusion Therapy in [place], [place] [address] [place] [address] Juan Pete M.D. [address] [place] [phone] 09/18/2024 2:15 PM CDT Hospital Encounter Department of Radiology, [facility] in [place], [place] [address] [place] [address] Edgar Montgomery M.B.B.S., M.S. [address] [place] [phone] 09/20/2024 3:00 PM CDT Comprehensive Visit [facility] in [place], [place] [address] [place] [phone] Catia Quintana APRN, C.N.P. [address] [place] [phone] 10/03/2024 9:00 AM CDT Appointment Department of Radiology, [facility] in [place], [place] [address] [place] [address] Marisabel Carpenter APRN, C.N.P., D.N.P. [address] [place] [phone] 10/05/2024 12:00 PM CDT Appointment Division of Pulmonary Medicine in [place], [place] [address] [place] [address] Edgar Montgomery M.B.B.S., M.S. [address] [place] [phone] 10/10/2024 7:50 AM CDT Lab Department of Laboratory Medicine and Pathology, [facility] in [place], [place] [address] [place] [address] Marisabel Carpenter APRN, C.N.P., D.N.P. [address] [place] [phone] 10/10/2024 8:00 AM CDT Lab Department of Laboratory Medicine and Pathology, [facility] in [place], [place] [address] [place] [address] Marisabel Carpenter APRN, C.N.P., D.N.P. [address] [place] [phone] 10/10/2024 8:30 AM CDT Nurse Only [facility] in [place], [place] [address] [place] [address] Marisabel Carpenter APRN, C.N.P., D.N.P. [address] [place] [address] 10/10/2024 9:20 AM CDT Appointment Department of Radiology, [facility] in [place], [place] [address] [place] [address] Marisabel Carpenter APRN, C.N.P., D.N.P. [address] [place] [phone] 10/10/2024 9:45 AM CDT Appointment Department of Laboratory Medicine and Pathology, [facility] in [place], [place] [address] [place] [address] Marisabel Carpenter APRN, C.N.P., D.N.P. [address] [place] [address] 10/10/2024 1:30 PM CDT Appointment Department of Radiology, [facility] in [place], [place] [address] [place] [phone] Marisabel Carpenter APRN, C.N.PSuma, D.N.P. [address] [place] [phone] 10/10/2024 2:45 PM CDT Appointment Department of Radiology, [facility], in [place], [place] [address] [place] [address] Marisabel Carpenter APRN, C.NDayne, D.N.P. [address] [place] [phone] 10/11/2024 8:00 AM CDT Office Visit [facility] in [place], [place] [address] [place] [phone] Marisabel Carpenter APRN, C.N.PSuma, D.N.P. [address] [place] [phone] 10/11/2024 11:00 AM CDT Comprehensive Visit [facility] in [place], [place] [address] [place] [phone] Sree Devlin M.D. [address] [place] [phone] 10/11/2024 1:00 PM CDT Comprehensive Visit Department of Otorhinolaryngology in [place], [place] [address] [place] [phone] Randal Urbano P.A.-C., M.S. [address] [place] [phone] 10/11/2024 2:00 PM CDT Office Visit [facility] in [place], [place] [address] [place] [phone] Hiro Murillo P.A.-C. [address] [place] [phone] 10/11/2024 4:00 PM CDT Comprehensive Visit Department of Dermatology in [place], [place] [address] [place] [phone] Parul Martinez M.D. [address] [place] [phone] 10/12/2024 8:00 AM CDT Telemedicine [facility] Trans[facility] and Clinical Regeneration in [place], [place] [address] [place] [phone] Ervin Mckeon D.O. [address] [place] [phone] 11/01/2024 2:15 PM CDT Appointment Division of Pulmonary Medicine in [place], [place] [address] [place] [phone] Edgar Montgomery M.B.B.S., M.S. [address] [place] [phone] documented as of this encounter Visit Diagnoses Not on filedocumented in this encounter Additional Health Concerns Infection Onset Date Last Indicated Resolved Time Protective Environment 10/10/2022 10/10/2022 Assessment Noted Time PHQ-9 Depression Total Score: 4 06/18/19 24 12:20 PM CASH SHORTAGE INVESTIGATOR documented as of this encounter Care Teams Bread Pan Greaser Relationship Specialty Start Date End Date Ana Red MPAS, P.A.-C. [address] [place], [place] [address], [place] [address] PCP - General Internal Medicine 12/01/21 [facility] 08/25/21 documented as of this encounter
--- OUTSIDE RECORDS SUMMARY | 2024-09-14 01:29 | XMS_ITS | Encounter Summary ---
Author Organization [facility] Address [address] [place] [address] Care Team Providers Care Manager Intel Name Role Phone Ana Red, P.A.-C. Primary Care Pro vider Reason for Visit * Reason Onset Date Comments Med Refill 08/14/2024 Encounter Details Date Type Department Care Team (Late st Contact Info) Description 08/14/2024 Refill Department of Community Internal Medicine in [place], [place] [address] [place] [address] Ana Red MPAS, P.A.-C. [address] [place] [phone] Med Refill Social History Tobacco Use Types Packs/Day Years Used Date Smoking Tobacco: Former Cigarettes 1 - 10/12/2021 Passive Smoke Exposure: Never Smokeless Tobacco: Never Comments:Smoked cigarettes f rom age 18-30 about Alcohol Use Standard Drinks/Week Comments Never 0 (1 standard drink = 0.6 oz pure alcohol) Havent had any alcohol in about a year or so. [facility] Utilities Answer Date Recorded In the past 12 months has e [place], gas, oil, or water [employer] threatened to shut off services in your [...] week 02/10/2022 How often do you attend [facility] or uatsdin services? Patient declined 02/10/2022 Do you belong to any clubs o r organizations such as confucianism groups, unions, fraternal [...] Date Recorded PHQ-2 Score 0 08/11/2024 [facility] - [...] your living situation today? I have a [facility] place to live 07/25/2024 Education Answer Date Recorded What is the highest level of school you have completed or the highest degree you have received? Associate degree: occupational, technical, or vocational program 07/16/2021 Comments No Sex and Gender Information Value Date Recorded Sex Assigned at Female 04/12/2021 7:39 PM AQUATICS INSTRUCTOR Legal Sex Female 7:53 PM AQUATICS INSTRUCTOR Gender Identity Female 04/12/2021 7:39 PM AQUATICS INSTRUCTOR Sexual Orientation Straight 04/12/2021 7: 39 PM AQUATICS INSTRUCTOR documented as of this encounter Plan of Treatment Upcoming Encounters Date Type Department Care Team (Latest Contact Info) Description 09/14/2024 11:00 AM CDT Appointment Department of Radiology, [facility], in [place], [place] [address] [place] [phone] Noreen Ansari P.A.-C., M.S. [address] [place] [address] Jesus Figueroa M.D. [address] [place] [phone] 09/14/2024 4:00 PM CDT Telemedicine Division of Pulmonary Medicine in [place], [place] [address] [place] [address] Ben Dickson APRN, C.N.P. [address] [place] [phone] 09/15/2024 8:00 AM CDT Lab Department of Laboratory Medicine and Pathology, [facility], in [place], [place] [address] [place] [address] Edgar Montgomery M.B.B.S., M.S. [address] [place] [phone] 09/15/2024 10:00 AM CDT Comprehensive Visit [facility] in [place], [place] [address] [place] [address] Edgar Montgomery M.B.B.S., M.S. [address] [place] [phone] Miriam Strickland M.D. [address] [place] [phone] 09/15/2024 11:00 AM CDT Office Visit [facility] in [place], [place] [address] [place] [address] Edgar Montgomery M.B.BSumaS., M.S. [address] [place] [phone] Discharge Disposition: Home or Self Care 09/15/2024 1:45 PM CDT Infusion Department of Infusion Therapy in [place], [place] [address] [place] [address] Juan Pete M.D. [address] [place] [phone] 09/18/2024 2:15 PM CDT Hospital Encounter Department of Radiology, [facility] in [place], [place] [address] [place] [address] Edgar Montgomery M.B.B.S., M.S. [address] [place] [phone] 09/20/2024 3:00 PM CDT Comprehensive Visit [facility] [place], [place] [address] [place] [address] Catia Quintana APRN, C.N.P. [address] [place] [phone] 10/03/2024 9:00 AM CDT Appointment Department of Radiology, [facility] in [place], [place] [address] [place] [address] Marisabel Carpenter APRN, C.N.P., D.N.P. [address] [place] [phone] 10/05/2024 12:00 PM CDT Appointment Division of Pulmonary Medicine in [place], [place] [address] [place] [address] Edgar Montgomery M.B.B.S., M.S. [address] [place] [phone] 10/10/2024 7:50 AM CDT Lab Department of Laboratory Medicine and Pathology, [facility] in [place], [place] [address] [place] [address] Marisabel Carpenter APRN, C.N.P., D.N.P. [address] [place] [phone] 10/10/2024 8:00 AM CDT Lab Department of Laboratory Medicine and Pathology, [facility] in [place], [place] [address] [place] [address] Marisabel Carpenter APRN, Katrin.N.PSuma, D.N.P. [address] [place] [phone] 10/10/2024 8:30 AM CDT Nurse Only Ramirez diaz [facility] in [place], [place] [address] [place] [phone] Marisabel Carpenter APRN, C.N.P., D.N.P. [address] [place] [phone] 10/10/2024 9:20 AM CDT Appointment Department of Radiology, [facility] in [place], [place] [address] [place] [address] Marisabel Carpenter APRN, C.N.P., D.N.P. [address] [place] [phone] 10/10/2024 9:45 AM CDT Appointment Department of Laboratory Medicine and Pathology, [facility] in [place], [place] [address] [place] [address] Marisabel Carpenter APRN, C.N.PSuma, D.N.P. [address] [place] [phone] 10/10/2024 1:30 PM CDT Appointment Department of Radiology, [facility], in [place], [place] [address] [place] [address] Marisabel Carpenter APRN, C.N.PSuma, D.N.P. [address] [place] [phone] 10/10/2024 2:45 PM CDT Appointment Department of Radiology, [facility] in [place], [place] [address] [place] [address] Marisabel Carpenter APRN, C.N.PSuma, D.N.P. [address] [place] [phone] 10/11/2024 8:00 AM CDT Office Visit [facility] in [place], [place] [address] [place] [address] Marisabel Carpenter APRN, Katrin.N.PSuma, D.N.P. [address] [place] [phone] 10/11/2024 11:00 AM CDT Comprehensive Visit [facility] in [place], [place] [address] [place] [address] Sree Devlin M.D. [address] [place] [phone] 10/11/2024 1:00 PM CDT Comprehensive Visit Department of Otorhinolaryngology in [place], [place] [address] [place] [address] Randal Urbano P.A.-C., M.S. [address] [place] [phone] 10/11/2024 2:00 PM CDT Office Visit [facility] in [place], [place] [address] [place] [address] Hiro Murillo P.A.-C. [address] [place] [phone] 10/11/2024 4:00 PM CDT Comprehensive Visit Department of Dermatology in [place], [place] [address] [place] [phone] Parul Martinez M.D. [address] [place] [phone] 10/12/2024 8:00 AM CDT Telemedicine [facility] Trans[facility] and Clinical Regeneration in [place], [place] [address] [place] [address] Ervin Mckeon D.O. [address] [place] [phone] 11/01/2024 2:15 PM CDT Appointment Division of Pulmonary Medicine in [place], [place] [address] [place] [phone] Edgar Montgomery M.B.B.S., M.S. [address] [place] [phone] documented as of this encounter Visit Diagnoses Diagnosis Chronic Pain Syndrome documented in this encounter Additional Health Concerns Infection Onset Date Last Indicated Resolved Time Protective Environment 10/10/2022 10/10/2022 Assessment Noted Time PHQ-9 Depression Total Score: 4 08/12/19 25 3:31 PM CDT documented as of this encounter Care Teams Manager Intel Relationship Specialty Start Date End Date Ana Red MPAS, P.A.-C. [address] [facility] [place]ua [phone] PCP - General Internal Medicine 12/01/21 [facility] [place] [facility] 08/25/21 documented as of this encounter
--- OUTSIDE RECORDS SUMMARY | 2024-09-14 01:29 | XMS_ITS | Encounter Summary ---
Author Organization [facility] Address [address] [place] [address] Care Team Providers Care Intensive Care Nurse Name Role Phone Ana Red P.A.-C. Primary Care Pro vider Encounter Details Date Type Department Care Team (Late Contact Info) Description 08/15/2024 Patient Self-Triage [facility] Symptom Imposer, Provider Social History Tobacco Use Types Packs/Day Years Used Date Smoking Tobacco: Former Cigarettes 1 - 10/12/2021 Passive Smoke Exposure: Never Smokeless Tobacco: Never Comments:Smoked cigarettes f rom age 18-30 about Alcohol Use Standard Drinks/Week Comments Never 0 (1 standard drink = 0.6 oz pure alcohol) Havent had any alcohol in about a year or so. [facility] Utilities Answer Date Recorded In the past 12 months has [employer], oil, or water [employer] threatened to shut off services in your [...] How often do you attend chur or confucianism services? Patient declined 02/10/2022 Do you belong to any clubs o r organizations such as buddhist groups, unions, fraternal [...] Answer Date Recorded PHQ-2 Score 0 08/11/2024 [facility] Occupat ional Health - Occupational [...] your living situation today? I have a [facility] place to live 07/25/2024 Education Answer Date Recorded What is the highest level of school you have completed or the highest degree you have received? Associate degree: occupational, technical, or vocational program 07/16/2021 Comments No Sex and Gender Information Value Date Recorded Sex Assigned at Female 04/12/2021 7:39 PM HADOOP ENGINEER Legal Sex Female 7:53 PM HADOOP ENGINEER Gender Identity Female 04/12/2021 7:39 PM HADOOP ENGINEER Sexual Orientation Straight 04/12/2021 7: 39 PM HADOOP ENGINEER documented as of this encounter Plan of Treatment Upcoming Encounters Date Type Department Care Team (Latest Contact Info) Description 09/14/2024 11:00 AM CDT Appointment Department of Radiology, [facility], in [place], [place] [address] [place] [phone] Noreen Ansari, Christo.-Katrin., M.S. [address] [place] [phone] Jesus Figueroa M.D. [address] [place] [phone] 09/14/2024 4:00 PM CDT Telemedicine Division of Pulmonary Medicine in [place], [place] [address] [place] [phone] Ben Dickson APRN, CSumaN.P. [address] [place] [phone] 09/15/2024 8:00 AM CDT Lab Department of Laboratory Medicine and Pathology, [facility] in [place], [place] [address] [place] [address] Edgar Montgomery M.Karan.B.S., M.S. [address] [place] [phone] 09/15/2024 10:00 AM CDT [facility] in [place], [place] [address] [place] [phone] Edgar Montgomery M.B.B.S., M.S. [address] [place] [phone] Miriam Strickland M.D. [address] [place] [phone] 09/15/2024 11:00 AM CDT Office Visit [facility] Trans[facility] Clinical Regeneration in [place], [place] [address] [place] [phone] Edgar Montgomery M.B.B.S., M.S. [address] [place] [phone] Discharge Disposition: Home or Self Care 09/15/2024 1:45 PM CDT Infusion Department of Infusion Therapy in [place], [place] [address] [place] [address] Juan Pete M.D. [address] [place] [address] 09/18/2024 2:15 PM CDT Hospital Encounter Department of Radiology, [facility], in [place], [place] [address] [place] [address] Edgar Montgomery M.B.B.S., M.S. [address] [place] [address] 09/20/2024 3:00 PM CDT Comprehensive Visit [facility] in [place], [place] [address] [place] [address] Catia Quintana APRN, C.N.P. [address] [place] [phone] 10/03/2024 9:00 AM CDT Appointment Department of Radiology, [facility], in [place], [place] [address] [place] [address] Marisabel Carpenter APRN, C.N.P., D.N.P. [address] [place] [phone] 10/05/2024 12:00 PM CDT Appointment Division of Pulmonary Medicine in [place], [place] [address] [place] [address] Edgar Montgomery M.B.B.S., M.S. [address] [place] [phone] 10/10/2024 7:50 AM CDT Lab Department of Laboratory Medicine and Pathology, [facility], in [place], [place] [address] [place] [address] Marisabel Carpenter APRN, C.N.P., D.N.P. [address] [place] [address] 10/10/2024 8:00 AM CDT Lab Department of Laboratory Medicine and Pathology, [place], [place] [address] [place] [address] Marisabel Carpenter APRN, C.N.P., D.N.P. [address] [place] [phone] 10/10/2024 8:30 AM CDT Nurse Only [facility] in [place], [place] [address] [place] [phone] Marisabel Carpenter APRN, C.N.PSuma, D.N.P. [address] [place] [phone] 10/10/2024 9:20 AM CDT Appointment Department of Radiology, [facility] in [place], [place] [address] [place] [address] Marisabel Carpenter APRN, C.N.P., D.N.P. [address] [place] [phone] 10/10/2024 9:45 AM CDT Appointment [place] [address] [place] [address] Marisabel Carpenter APRN, C.N.P., D.N.P. [address] [place] [phone] 10/10/2024 1:30 PM CDT Appointment Department of Radiology, [facility] in [place], [place] [address] [place] [address] Marisabel Carpenter APRN C.N.PSuma, D.N.P. [address] [place] [phone] 10/10/2024 2:45 PM CDT Appointment Department of Radiology, [facility], in [place], [place] [address] [place] [address] Marisabel Carpenter APRN C.N.PSuma, D.N.P. [address] [place] [phone] 10/11/2024 8:00 AM CDT Office Visit [facility] in [place], [place] [address] [place] [address] Marisabel Carpenter APRN, C.N.P., D.N.P. [address] [place] [phone] 10/11/2024 11:00 AM CDT Comprehensive Visit [facility] in [place], [place] [address] [place] [address] Sree Devlin M.D. [address] [place] [phone] 10/11/2024 1:00 PM CDT Comprehensive Visit Department of Otorhinolaryngology in [place], [place] [address] [place] [address] Randal Urbano, P.A.-C., M.S. [address] [place] [phone] 10/11/2024 2:00 PM CDT Office Visit [facility] in [place], [place] [address] [place] [address] Hiro Murillo P.A.-C. [address] [place] [phone] 10/11/2024 4:00 PM CDT Comprehensive Visit Department of Dermatology in [place], [place] [address] [place] [phone] Parul Martinez M.D. [address] [place] [phone] 10/12/2024 8:00 AM CDT Telemedicine [facility] in [place], [place] [address] [place] [phone] Ervin Mckeon D.O. [address] [place] [phone] 11/01/2024 2:15 PM CDT Appointment Division of Pulmonary Medicine in [place], [place] [address] [place] [phone] Edgar Montgomery M.B.B.S., M.S. [address] [place] [phone] documented as of this encounter Visit Diagnoses Not on filedocumented in this encounter Additional Health Concerns Infection Onset Date Last Indicated Resolved Time Protective Environment 10/10/2022 10/10/2022 Assessment Noted Time PHQ-9 Depression Total Score: 4 08/12/19 25 3:31 PM CDT documented as of this encounter Care Teams Intensive Care Nurse Relationship Specialty Start Date End Date Ana Red MPAS, PToo. [address] [place] [address] [place] [address] PCP - General Internal Medicine 12/01/21 [facility] [place] [facility] 08/25/21 documented as of this encounter
--- OUTSIDE RECORDS SUMMARY | 2024-09-14 01:29 | XMS_ITS | Encounter Summary ---
Author Organization [facility] Address [address] [place] [address] Care Team Providers Care Environmental Services Supervisor Name Role Phone Ana Red, P.A.-C. Primary Care Pro vider Reason for Visit * Reason Comments Tcm - Post-Hospital Visit TCM visit yuly hoffmann.Pt called 07/28/24. RST [facility] [place] - Post hosp follow up- Abdominal pain * Appointment Request (Routine) - Closed Specialty Diagnoses / Procedures Referred By Meir lara Referred To Contact [facility] Referral ID Status Reason Start Date Expiration Date Visits Re quested Visits Authorized [id number] Closed 07/27/2024 10/27/2025 1 1 Encounter Details Date Type Department Care Team (Late st Contact Info) Description 08/11/2024 3:30 PM CDT Office Visit Department of Community Internal Medicine in [place], [place] [address] [place] [phone] Ana Red MPAS, P.A.-C. [address] [place] [phone] Diabetes Mellitus Type 2 Without Complication (HCC) (Primary Dx); Pain Abdominal Chronic; Chronic Pain Syndrome Social History Tobacco Use Types Packs/Day Years Used Date Smoking Tobacco: Former Cigarettes 1 - 10/12/2021 Passive Smoke Exposure: Never Smokeless Tobacco: Never Comments:Smoked cigarettes f rom age 18-30 about Alcohol Use Standard Drinks/Week Comments Never 0 (1 standard drink = 0.6 oz pure alcohol) Havent had any alcohol in about a year or so. [facility] Utilities Answer Date Recorded In the past 12 months has th e [employer], gas, oil, or water company threatened to [...] often do you attend chur ch or church services? Patient declined 02/10/2022 Do you belong [...] Recorded PHQ-2 Score 0 08/11/2024 [facility] of Occupat ional Health - Occupational Stress [...] your living situation today? [facility] 07/25/2024 Education Answer Date Recorded What is the highest level of school you have completed or the highest degree you have received? Associate degree: occupational, technical, or vocational program 07/16/2021 Comments No Sex and Gender Information Value Date Recorded Sex Assigned at Female 04/12/2021 7:39 PM RADIO COMMENTATOR Legal Sex Female 7:53 PM RADIO COMMENTATOR Gender Identity Female 04/12/2021 7:39 PM RADIO COMMENTATOR Sexual Orientation Straight 04/12/2021 7: 39 PM RADIO COMMENTATOR documented as of this encounter Last Filed Vital Signs Vital Sign Reading Time Taken Comments Blood Pressure 97/66 08/11/2024 3:29 PM CDT Pulse 109 08/11/2024 3:29 PM CDT Temperature 36 C (96.8 F) 08/11/2024 3:29 PM CDT Respiratory Rate 20 08/11/2024 3:29 PM CDT Oxygen Saturation - - Inhaled Oxygen Concentration - - Weight 54.5 kg (120 lb 0.7 oz) 08/11/2024 3:29 P M CDT Height 152 cm (4' 11.84) 08/11/2024 3:29 PM CDT Body Mass Index 23.57 08/11/2024 3:29 PM CDT documented in this encounter Progress Notes * Ana Red MPAS, P.A.-C. - 08/11/2024 3:30 PM CDT SUBJECTIVE CHIEF COMPLAINT/REASON FOR VISIT Chief Complaint Patient presents with Tcm - Post-Hospital Visit TCM visit eligible.Pt called 07/28/24. RST [facility] -Post hosp follow up- Abdominal pain HISTORY OF PRESENT ILLNESS Catia Brunson is a pleasant 34 y.o. female with a PMHx of chronic abdominal pain who presents to the clinic today for follow up. She has been in the hospital since our last visit due to chronic abdominal pain from 07/25/2024 - 07/27/2024. She was informed during her hospitalization that her chronic abdominal pain is not due to her pancreas and she is concerned about this. She has an upcoming clinic [facility] and an upcoming trigger point injection.She did miss a transplant addiction psychiatry appointment earlier this week and says she was not aware this was on her calendar. The following portions of the patient's history were reviewed and updated as appropriate: current medications and problem list. Problem List[1] ALLERGIES/CONTRAINDICATIONS Allergies[2] CURRENT MEDICATIONS Current Medications[3] OBJECTIVE VITAL SIGNS Vitals: 08/11/24 1529 BP: 97/66 Pulse: 109 Resp: 20 Temp: 36 ??C PHYSICAL EXAMINATION General: Well-nourished, well-developed 34 y.o. in no apparent distress. Awake, alert, age appropriate. Cardiovascular: Regular rate and rhythm without murmurs. Lungs: Clear to auscultation bilaterally with no adventitious sounds Neurologic: Alert and oriented x3. ASSESSMENT / PLAN IMPRESSION/REPORT/PLAN: #1 Pain Abdominal Chronic #2 Chronic Pain Syndrome Continue to wean off Dilaudid. We transitioned her prescription to 2 mg every 6 hours earlier this week (previously prescriptions read 2 mg every 3 hours). Prescription sent to pharmacy for 2 mg every 12 hours today. She will be starting [facility] in [place] next week 08/15 and we have previously discussed discontinuing narcotic medication prior to this program. She has a trigger point injection scheduled for 08/17. She inquires today if we can extend the Dilaudid prescription a few days/weeks into the program. Although this could be considered, we again reviewed that moving forward it would be best to discontinue the narcotic use all together. - HYDROmorphone (Dilaudid) 4 mg tablet; Take 0.5 tablets (2 mg total) by mouth every 12 (twelve) hours Indication: Chronic Pain/Nonacute Pain., Starting Wed08/11/2024, NormalApproval for substitution of equivalent dose/quantity of any available hydromorphone dosage forms, including compounds during drug shortage #3 Diabetes Mellitus Type 2 Without Complication (HCC) She will continue to follow with Transplant Endocrinology. Other orders - [facility] office visit (clinic) If symptoms worsen or do not improve, patient is instructed to seek further medical attention. All questions have been answered. Patient demonstrated understanding and verbalized agreement with the plan. RORO Tabares, P.A.-C. [1] Patient Active Problem List Diagnosis Anemia Macrocytic Anxiety Generalized Disorder Alcoholic Cirrhosis Of Liver With Ascites (HCC) Gastroesophageal Reflux Disease Without Esophagitis Hepatic Failure Unspecified Without Coma (HCC) Pancreatitis Chronic (HCC) Rhinitis Allergic Patent Foramen Ovale (HCC) Moderate Or Severe Use Disorder (Dependence) Alcohol Remission (HCC) Thrombocytopenia Deficiency Coagulation Acquired (HCC) Deficiency Vitamin A [...] Vertebra Compression Thoracic Closed Subsequent COVID-19 Infection Nausea And Vomiting Abdominal Pain Hyponatremia Neutropenia Other Specified Disorders Of Teeth And Supporting Structures Lower Abdominal Pain Unspecified Diabetes Mellitus Due To Underlying Condition With Ketoacidosis Without Coma (HCC) Diabetes Mellitus Type 2 Without Complication (HCC) [2] Allergies Allergen Reactions Toradol [Ketorolac] GI intolerance Azithromycin Nausea And Vomiting and GI intolerance Nausea and vomiting Tramadol GI intolerance Nausea and vomiting [3] Current Outpatient Medications: acetaminophen (TylenoL 8 Hr) 650 mg ER tablet, Take 1 tablet (650 mg total) by mouth 3 (three) times a day. Typically takes 1 tablet every day in the morning, and two additional doses as needed for pain, Disp: 90 tablet, Rfl: 11 alcohol swabs (Alcohol Wipes) pads, medicated, Use as needed with diabetic supplies, Disp: 100 each, Rfl: 0 aspirin 81 mg chewable tablet, Chew 1 tablet (81 mg total) daily., Disp: 90 tablet, Rfl: 3 blood glucose control high,low (Accu-Chek Guide L1-L2 Ctrl Shayna) solution, Use as directed with diabetes glucose meter to ensure accurate blood glucose testing., Disp: 1 each, Rfl: 0 blood sugar diagnostic strips, Use to test blood sugar 2 time(s) per day., Disp: 100 test, Rfl: 1 blood-glucose meter [facility], Test as directed for diabetes control., Disp: 1 each, Rfl: 0 blood-glucose sensor (FreeStyle Kristina 3 Plus Sensor) device, Use as directed. Change sensor every 15 days, Disp: 6 each, Rfl: 3 cholecalciferol (Vitamin D3) 50 mcg (2,000 Unit) tablet, Take 1 tablet (50 mcg total) by mouth daily., Disp: 90 tablet, Rfl: 3 diclofenac sodium (Voltaren) 1 % gel, Apply 2 g topically 4 (four) times a day. Apply to abdomen orother areas of pain., Disp: 200 g, Rfl: 3 HYDROmorphone (Dilaudid) 4 mg tablet, Take 0.5 tablets (2 mg total) by mouth every 12 (twelve) hours Indication: Chronic Pain/Nonacute Pain., Disp: 3 tablet, Rfl: 0 insulin aspart U-100 (NovoLOG Flexpen U-100 Insulin) 100 unit/mL (3 mL) pen, Inject 4 Units under the skin 3 (three) times a day with meals. For blood glucose: 140 - 179: give 0 units 180-219: give 1unit 220-259: +2 units 260-299: +3 units 300-339: +5 units 340-379: +7 units 380-399: +9 units Greater than 399: Call service writing Insulin orders, Disp: 15 mL, Rfl: 3 insulin glargine 100 unit/mL (3 mL) pen, Inject 7 Units under the skin 2 (two) times a day. Pharmacy select brand per patient insurance/preference. Patient to use glargine until she receives Tresiba., Disp: 12.6 mL, Rfl: 2 lancets, Use 2 (two) times a day. Use as directed for diabetes testing., Disp: 100 each, Rfl: 1 levonorgestreL (MIRENA) 21 mcg/24 hours (8 yrs) 52 mg IUD, 1 Intra Uterine Device (1 each total) byintrauterine route continuously. Inserted 07/31/2022., Disp: 1 each, Rfl: 0 lidocaine 4 % adhesive patch,medicated, Place 1 patch on the skin daily. Apply to painful areas., Disp: 30 patch, Rfl: 1 lvjrox-zpsvemae-ukkxjyu (Creon) 12,000-38,000-60,[address] capsule, Take 2 capsules (24,000 Units of lipase total) by mouth 3 (three) times a day with meals., Disp: 100 capsule, Rfl: 0 meclizine (Antivert) 25 mg tablet, Take 1 tablet (25 mg total) by mouth 3 (three) times a day as needed for dizziness., Disp: 42 tablet, Rfl: 1 methocarbamoL (Robaxin) 750 mg tablet, Take 1 tablet (750 mg total) by mouth 2 (two) times a day., Disp: 30 tablet, Rfl: 3 mirtazapine (Remeron) 15 mg tablet, Take 1 tablet (15 mg total) by mouth at bedtime., Disp: 90 tablet, Rfl: 3 multivitamin tablet, Take 1 tablet by mouth daily., Disp: 30 tablet, Rfl: 3 naloxone (Narcan) 4 mg/actuation nasal spray, Administer 1 spray (4 mg total) into one nostril as needed for reversal. Repeat with second device in other nostril after 2-3 minutes if no or minimal response., Disp: 2 each, Rfl: 0 ondansetron (Zofran) 4 mg tablet, Take 1 tablet (4 mg total) by mouth every 6 (six) hours as neededfor nausea or vomiting., Disp: 30 tablet, Rfl: 0 pantoprazole (Protonix) 40 mg EC tablet, Take 1 tablet (40 mg total) by mouth daily before morning meal., Disp: 90 tablet, Rfl: 3 pen needle, diabetic (BD Ultra-Fine Short Pen Needle) 31 gauge x 5/16 needle, Use as needed for insulin and teriparatide injections. Daily teriparatide, 1-2 times daily long-acting insulin, and 3 times daily short-acting insulin., Disp: 200 each, Rfl: 2 polyethylene glycol (Miralax) 17 gram powder packet, Take 1 packet (17 g total) by mouth daily. Dissolve each 17 g dose in 240 mLs (8 ounces) of beverage., Disp: 30 packet, Rfl: 0 predniSONE (Deltasone) 5 mg tablet, Take 1 tablet (5 mg total) by mouth daily., Disp: 90 tablet, Rfl: 0 pregabalin (Lyrica) 100 mg capsule, Take 1 capsule (100 mg total) by mouth 2 (two) times a day., Disp: 60 capsule, Rfl: 0 sennosides-docusate sodium (Senokot-S) 8.6-50 mg per tablet, Take 1 tablet by mouth 2 (two) times aday as needed for constipation., Disp: 100 tablet, Rfl: 0 tacrolimus (Prograf) 1 mg capsule, Place 2 capsules (2 mg total) under the tongue every morning AND2 capsules (2 mg total) every evening., Disp: 360 capsule, Rfl: 3 teriparatide (Forteo) 20 mcg/dose (600mcg/2.4mL) injection, Inject 0.08 mL (20 mcg total) under theskin daily., Disp: 2.4 mL, Rfl: 11 traZODone (DesyreL) 50 mg tablet, TAKE 1 TO 3 TABLETS(50 TO 150 MG) BY MOUTH AT BEDTIME NEEDED FOR SLEEP (Patient taking differently: Take 50 mg by mouth at bedtime as needed for sleep. TAKE 1 TO 3 TABLETS(50 TO 150 MG) BY MOUTH AT BEDTIME NEEDED FOR SLEEP), Disp: 180 tablet, Rfl: 3 triamcinolone (Nasacort) 55 mcg/actuation nasal spray, Administer 2 sprays into each nostril daily., Disp: 16.5 mL, Rfl: 11 Tresiba FlexTouch U-100 100 unit/mL (3 mL) injection, Inject 15 Units under the skin at bedtime. make sure to stop using glargine when starting (Patient not taking: Reported on 08/11/2024), Disp: 15 mL, Rfl: 2 documented in this encounter Plan of Treatment Upcoming Encounters Date Type Department Care Team (Latest Contact Info) Description 09/14/2024 11:00 AM CDT Appointment Department of Radiology, [facility], in [place], [place] [address] [place] [address] Noreen Ansari, P.A.-C., M.S. [address] [place], [place] [phone] Jesus Figueroa M.D. [address] [place] [phone] 09/14/2024 4:00 PM CDT Telemedicine Division of Pulmonary Medicine in [place], [place] [address] [place], [place] [phone] Ben Dickson APRN, C.N.P. [address] [place], [place] [phone] 09/15/2024 8:00 AM CDT Lab Department of Laboratory Medicine and Pathology, [facility], in [place], [place] [address] [place] [address] Edgar Montgomery M.B.B.S., M.S. [address] [place] [phone] 09/15/2024 10:00 AM CDT Comprehensive Visit [facility] in [place], [place] [address] [place] [address] Edgar Montgomeyr M.B.B.S., M.S. [address] [place] [phone] Miriam Strickland M.D. [address] [place] [phone] 09/15/2024 11:00 AM CDT Office Visit [facility] in [place], [place] [address] [place] [address] Edgar Montgomery M.B.B.S., M.S. [address] [place] [phone] Discharge Disposition: Home or Self Care 09/15/2024 1:45 PM CDT Infusion Department of Infusion Therapy in [place], [place] [address] [place] [address] Juan Pete M.D. [address] [place] [phone] 09/18/2024 2:15 PM CDT Hospital Encounter Department of Radiology, [facility], in [place], [place] [address] [place] [address] Edgar Montgomery M.B.B.S., M.S. [address] [place] [phone] 09/20/2024 3:00 PM CDT Comprehensive Visit [facility] in [place], [place] [address] [place] [address] Catia Quintana APRN, C.N.P. [address] [place] [phone] 10/03/2024 9:00 AM CDT [facility] [place] [place] [address] [place] [address] Marisabel Carpenter APRN, Katrin.N.P., D.N.P. [address] [place] [phone] 10/05/2024 12:00 PM CDT Appointment Division of Pulmonary Medicine in [place], [place] [address] [place] [address] Edgar Montgomery M.B.B.S., M.S. [address] [place] [phone] 10/10/2024 7:50 AM CDT Lab Department of Laboratory Medicine and Pathology, [place], [place] [address] [place] [address] Marisabel Carpenter APRN, Katrin.N.P., D.N.P. [address] [place] [phone] 10/10/2024 8:00 AM CDT Lab Department of Laboratory Medicine and Pathology, [facility] in [place], [place] [address] [place] [phone] Marisabel Carpenter APRN, C.N.P., D.N.P. [address] [place] [address] 10/10/2024 8:30 AM CDT Nurse Only Ramirez diaz [facility] in [place], [place] [address] [place] [address] Marisabel Carpenter APRN, C.N.P., D.N.P. [address] [place] [phone] 10/10/2024 9:20 AM CDT Appointment Department of Radiology, [facility] in [place], [place] [address] [place] [address] Marisabel Carpenter APRN, C.N.P., D.N.P. [address] [place] [phone] 10/10/2024 9:45 AM CDT Appointment Department of Laboratory Medicine and Pathology, [facility] in [place], [place] [address] [place] [address] Marisabel Carpenter APRN, C.N.P., D.N.P. [address] [place] [phone] 10/10/2024 1:30 PM CDT Appointment Department of Radiology, [facility] in [place], [place] [address] [place] [address] Marisabel Carpenter APRN, C.N.P., D.N.P. [address] [place] [phone] 10/10/2024 2:45 PM CDT Appointment Department of Radiology, [facility], in [place], [place] [address] [place] [phone] Marisabel Carpenter APRN, C.NDayne, D.N.P. [address] [place] [phone] 10/11/2024 8:00 AM CDT [facility] in [place], [place] [address] [place] [address] Marisabel Carpenter APRN, C.N.P., D.N.P. [address] [place] [phone] 10/11/2024 11:00 AM CDT [facility] in [place], [place] [address] [place] [phone] Sree Devlin M.D. [address] [place] [phone] 10/11/2024 1:00 PM CDT Comprehensive Visit Department of Otorhinolaryngology in [place], [place] [address] [place] [phone] Randal Urbano, Shanita.Silvano.-C., M.S. [address] [place] [phone] 10/11/2024 2:00 PM CDT Office Visit [facility] in [place], [place] [address] [place] [phone] Hiro Murillo P.A.-C. [address] [place] [phone] 10/11/2024 4:00 PM CDT Comprehensive Visit Department of Dermatology in [place], [place] [address] [place] [phone] Parul Martinez M.D. [address] [place] [address] 10/12/2024 8:00 AM CDT Telemedicine [facility] in [place], [place] [address] [place] [phone] Ervin Mckeon D.O. [address] [place] [phone] 11/01/2024 2:15 PM CDT Appointment Division of Pulmonary Medicine in [place], [place] [address] [place] [phone] Edgar Montgomery M.B.B.S., M.S. [address] [place] [phone] documented as of this encounter Visit Diagnoses Diagnosis Diabetes Mellitus Type 2 Without Complication (HCC)- Primary Pain Abdominal Chronic Chronic Pain Syndrome documented in this encounter Additional Health Concerns Infection Onset Date Last Indicated Resolved Time Protective Environment 10/10/2022 10/10/2022 Assessment Noted Time PHQ-9 Depression Total Score: 4 08/12/19 25 3:31 PM CDT documented as of this encounter Care Teams Environmental Services Supervisor Relationship Specialty Start Date End Date Ana Red MPAS, P.A.-C. [address] [place] [phone] PCP - General Internal Medicine 12/01/21 [facility] 08/25/21 documented as of this encounter
--- OUTSIDE RECORDS SUMMARY | 2024-09-14 01:29 | XMS_ITS | Encounter Summary ---
Author Organization [facility] Address [address] [place] [address] Care Team Providers Care Deliver Driver Name Role Phone Ana Red P.A.-C. Primary Care Pro vider Reason for Visit * Behavioral Health (Routine) - Closed Specialty Diagnoses / Procedures Referred By Contact Referred To Contact Psychiatry / [facility] Rehabilitation [facility] Diagnoses Chronic Pain Syndrome Procedures [facility] Programs [place] [facility] BHV IVNTJ GRP 1ST 30 [place] HL[facility] BHV IVNTJ GRP EA ADDL 15 Marquis Young, Ph.D., L.P. [address] [place] [phone] Phone: tel:[phone] fax:[phone] [facility] Referral ID Status Reason Start Date Expiration Date Visits Re quested Visits Authorized [id number] Closed 05/02/2024 05/02/2025 2 2 Encounter Details Date Type Department Care Team (Latest Contact Info) Description 08/15/2024 8:00 AM CDT Clinical Support [facility] in [place], [place] [address] [place] [phone] Marquis Young, Ph.D., L.P. [address] [place] [phone] Conor Vega, Ph.D., L.P. [address] [place] [address] [place] [address] Pain Abdominal Chronic (Primary Dx) Social History Tobacco Use Types Packs/Day Years Used Date Smoking Tobacco: Former Cigarettes 1 - 10/12/2021 Passive Smoke Exposure: Never Smokeless Tobacco: Never Comments:Smoked cigarettes f rom age 18-30 about Alcohol Use Standard Drinks/Week Comments Never 0 (1 standard drink = 0.6 oz pure alcohol) Havent had any alcohol in about a year or so. [facility] Utilities Answer Date Recorded In the past 12 months has e nooked, gas, oil, or water [employer] threatened to shut off services in your [...] Answer Date Recorded PHQ-2 Score 0 08/11/2024 [facility] of Occupat ional Health - Occupational Stress [...] Sex Assigned at Female 04/12/2021 7:39 PM REHABILITATION INSPECTOR Legal Sex Female 7:53 PM REHABILITATION INSPECTOR Gender Identity Female 04/12/2021 7:39 PM REHABILITATION INSPECTOR Sexual Orientation Straight 04/12/2021 7: 39 PM REHABILITATION INSPECTOR documented as of this encounter Miscellaneous Notes * Group Note - Conor Vega, Ph.D., L.P. - 08/15/2024 8:00 AM CDT The patient attended Pain Psychology Behavioral Health Group. Number of patients in group: 6. Group facilitated by : Osmin Vega, Ph.D., L.P. Topic and Goals of Group session: Pain Rehabilitation Executive Program Day Two Learning Methods Used: class/group, experiential practice, printed materials, and psychologist guided discussion. CHIEF COMPLAINT/PURPOSE OF VISIT [facility] Executive Program OBJECTIVE Day two PREP programming morning session Ms. Catia Brunson attended PREP Program-morning groups (4.0 hours) facilitated by Osmin Vega, Ph.D., L.P. She was 1 of 6 participants. Activities included review of day one, range of motion and stretching activity, discussion of moderation and importance of daily physical activity, and review of pain rehabilitation concepts by former [employer] graduate. Morning activities also included experiential participation in gentle yoga and advanced relaxation and breathing practice. Goals for morning session include understanding of benefits of rehabilitation concepts such as range of motion and stretching activity, parasympathetic activation, life balance, and acceptance of chronicity of pain. Therapeutic interventions: promote environment of open honest discussion leading to participant decisions in making improvements in behaviors and thoughts and positive changes for improved functioning and quality of life despite pain. Patient was attentive and engaged in discussion. Mood was calm. Affect was congruent. No self-harm ideation was endorsed. Thought process was within normal limits. Speech was linear and coherent. Behaviors were appropriately interactive with peers and cooperative with group kitchen and counter worker. Insight and judgment were adequate. Day two PREP programming afternoon session Catia left prior to the start of the afternoon session for a scheduled medical appointment. ASSESSMENT / PLAN Summary of morning session and pain self-management plan:: Ms. Catia Brunson returns today for day two programming. She noted that she enjoyed spending time with her significant other last night, and took a drive which was soothing to her. She also mentioned challenging negative thoughts as they occurred, and noted this was beneficial for her. She participated in the morning stretch activity. She was open to concepts of activity pacing and acceptance. She had to leave the 2 day program for a scheduled appointment, but was attentive and engaged throughout the 2 days. She has goals toparticipate in the three-week program to support her symptom self-management and decreases in medication. I noted I would reach out to her primary care provider regarding the program and the potential treatment fit for her with the three-week program. She does have the contact number for the three-week program. #1 Pain Abdominal Chronic Time spent with patient (in minutes): 240 Signed by: Osmin Vega, Ph.D., L.P. 08/15/2024 4:53 PM CDT documented in this encounter Plan of Treatment Upcoming Encounters Date Type Department Care Team (Latest Contact Info) Description 09/14/2024 11:00 AM CDT Appointment Department of Radiology, [facility], in [place], [place] [address] [place] [phone] Noreen Ansari, P.A.-C., M.S. [address] [place], [place] [phone] Jesus Figueroa M.D. [address] [place] [phone] 09/14/2024 4:00 PM CDT Telemedicine Division of Pulmonary Medicine in [place], [place] [address] [place], [place] [phone] Ben Dickson, PRESS WASHER, C.N.P. [address] [place] [phone] 09/15/2024 8:00 AM CDT Lab Department of Laboratory Medicine and Pathology, [facility] in [place], [place] [address] [place] [address] Edgar Montgomery M.B.B.S., M.S. [address] [place] [phone] 09/15/2024 10:00 AM CDT Comprehensive Visit [facility] Trans[facility] and Clinical Regeneration in [place], [place] [address] [place] [address] Edgar Montgomery M.B.B.S., M.S. [address] [place] [phone] Miriam Strickland M.D. [address] [place] [phone] 09/15/2024 11:00 AM CDT Office Visit [facility] in [place], [place] [address] [place] [address] Edgar Montgomery M.B.B.S., M.S. [address] [place] [phone] Discharge Disposition: Home or Self Care 09/15/2024 1:45 PM CDT Infusion Department of Infusion Therapy in [place], [place] [address] [place] [address] Juan Pete M.D. [address] [place] [phone] 09/18/2024 2:15 PM CDT Hospital Encounter Department of Radiology, [facility], in [place], [place] [address] [place] [address] Edgar Montgomery M.B.B.S., M.S. [address] [place] [phone] 09/20/2024 3:00 PM CDT Comprehensive Visit [facility] in [place], [place] [address] [place] [address] Catia Quintana APRN, C.N.P. [address] [place] [phone] 10/03/2024 9:00 AM CDT Appointment Department of Radiology, [facility] in [place], [place] [address] [place] [address] Marisabel Carpenter APRN, C.N.P., D.N.P. [address] [place] [phone] 10/05/2024 12:00 PM CDT Appointment Division of Pulmonary Medicine in [place], [place] [address] [place] [address] Edgar Montgomery M.B.B.S., M.S. [address] [place] [phone] 10/10/2024 7:50 AM CDT Lab Department of Laboratory Medicine and Pathology, [facility] in [place], [place] [address] [place] [address] Marisabel Carpenter APRN, C.N.P., D.N.P. [address] [place] [phone] 10/10/2024 8:00 AM CDT Lab Department of Laboratory Medicine and Pathology, [facility] in [place], [place] [address] [place] [address] Marisabel Carpenter APRN, C.N.PSuma, D.N.P. [address] [place] [phone] 10/10/2024 8:30 AM CDT Nurse Only Ramirez Nguyen [facility] in [place], [place] [address] [place] [address] Marisabel Carpenter APRN, C.N.PSuma, D.N.P. [address] [place] [phone] 10/10/2024 9:20 AM CDT Appointment Department of Radiology, [facility] in [place], [place] [address] [place] [address] Marisabel Carpenter APRN, C.N.P., D.N.P. [address] [place] [phone] 10/10/2024 9:45 AM CDT Appointment Department of Laboratory Medicine and Pathology, [facility] in [place], [place] [address] [place] [address] Marisabel Carpenter APRN, C.N.P., D.N.P. [address] [place] [phone] 10/10/2024 1:30 PM CDT Appointment Department of Radiology, [facility], in [place], [place] [address] [place] [address] Marisabel Carpenter APRN, C.N.P., D.N.P. [address] [place] [phone] 10/10/2024 2:45 PM CDT Appointment Department of Radiology, [facility], in [place], [place] [address] [place] [address] Marisabel Carpenter APRN, C.NDayne, D.N.P. [address] [place] [phone] 10/11/2024 8:00 AM CDT [facility] in [place], [place] [address] [place] [address] Marisabel Carpenter APRN, C.N.P., D.N.P. [address] [place] [phone] 10/11/2024 11:00 AM CDT [facility] in [place], [place] [address] [place] [address] Sree Devlin M.D. [address] [place] [phone] 10/11/2024 1:00 PM CDT Comprehensive Visit Department of Otorhinolaryngology in [place], [place] [address] [place] [address] Randal Urbano, P.A.-C., M.S. [address] [place] [phone] 10/11/2024 2:00 PM CDT Office Visit Ramirez [facility] in [place], [place] [address] [place] [phone] Hiro Murillo P.A.-C. [address] [place] [phone] 10/11/2024 4:00 PM CDT Comprehensive Visit Department of Dermatology in [place], [place] [address] [place] [address] Parul Martinez M.D. [address] [place] [phone] 10/12/2024 8:00 AM CDT Telemedicine [facility] and Clinical Regeneration in [place], [place] [address] [place] [phone] Ervin Mckeon D.O. [address] [place] [phone] 11/01/2024 2:15 PM CDT Appointment Division of Pulmonary Medicine in [place], [place] [address] [place] [phone] Edgar Montgomery M.B.BSumaS., M.S. [address] [place] [phone] documented as of this encounter Visit Diagnoses Diagnosis Pain Abdominal Chronic- Primary documented in this encounter Additional Health Concerns Infection Onset Date Last Indicated Resolved Time Protective Environment 10/10/2022 10/10/2022 Assessment Noted Time PHQ-9 Depression Total Score: 4 08/12/19 25 3:31 PM CDT documented as of this encounter Care Teams Deliver Driver Relationship Specialty Start Date End Date Ana Red MPAS, P.A.-C. [address] [place] [phone] PCP - General Internal Medicine 12/01/21 [facility] 08/25/21 documented as of this encounter
--- OUTSIDE RECORDS SUMMARY | 2024-09-14 01:29 | XMS_ITS | Encounter Summary ---
Author Organization [facility] Address [address] [place] [address] Care Team Providers Care Hand Patcher Name Role Phone Ana Red P.A.-C. Primary Care Pro vider Encounter Details Date Type Department Care Team (Latest Contact Info) Description 07/27/2024 Clinical Communication Division of Gastroenterology in [place], [place] [address] [place] [phone] Tyrone Kimble III, M.D., Ph.D. [address] [place] [phone] Social History Tobacco Use Types Packs/Day Years Used Date Smoking Tobacco: Former Cigarettes 1 - 10/12/2021 Passive Smoke Exposure: Never Smokeless Tobacco: Never Comments:No longer smoke Alcohol Use Standard Drinks/Week Comments Never 0 (1 standard drink = 0.6 oz pure alcohol) Havent had any alcohol in about a year or so. [facility] Utilities Answer Date Recorded In [...] week 02/10/2022 How often do you attend [facility] or taoist services? Patient declined 02/10/2022 Do you belong to any clubs o r organizations such as latter day groups, unions, [...] Answer Date Recorded PHQ-2 Score 0 08/11/2024 [facility] [place] of Occupat ional Health - Occupational Stress [...] your living situation today? I have a [facility] place to live 08/22/2024 Education Answer Date Recorded What is the highest level of school you have completed or the highest degree you have received? Associate degree: occupational, technical, or vocational program 07/16/2021 Comments No Sex and Gender Information Value Date Recorded Sex Assigned at Female 04/12/2021 7:39 PM PUBLISHING MANAGER Legal Sex Female 7:53 PM PUBLISHING MANAGER Gender Identity Female 04/12/2021 7:39 PM PUBLISHING MANAGER Sexual Orientation Straight 04/12/2021 7: 39 PM PUBLISHING MANAGER documented as of this encounter Plan of Treatment Upcoming Encounters Date Type Department Care Team (Latest Contact Info) Description 09/14/2024 11:00 AM CDT Appointment Department of Radiology, [facility], in [place], [place] [address] [place] [address] Noreen Ansari P.A.-C., M.S. [address] [place] [address] Jesus Figueroa M.D. [address] [place] [phone] 09/14/2024 4:00 PM CDT Telemedicine Division of Pulmonary Medicine in [place], [place] [address] [place] [phone] Ben Dickson APRN, C.N.P. [address] [place] [phone] 09/15/2024 8:00 AM CDT Lab Department of Laboratory Medicine and Pathology, [facility] in [place], [place] [address] [place] [phone] Edgar Montgomery M.B.B.S., M.S. [address] [place] [phone] 09/15/2024 10:00 AM CDT Comprehensive [facility] in [place], [place] [address] [place] [phone] Edgar Montgomery M.B.B.S., M.S. [address] [place] [phone] Miriam Strickland M.D. [address] [place] [phone] 09/15/2024 11:00 AM CDT Office Visit Ramirez Navarrete [facility] for Transplantation and Clinical Regeneration in [place], [place] [address] [place] [phone] Edgar Montgomery M.B.B.S., M.S. [address] [place] [phone] Discharge Disposition: Home or Self Care 09/15/2024 1:45 PM CDT Infusion Department of Infusion Therapy in [place], [place] [address] [place] [address] Juan Pete M.D. [address] [place] [phone] 09/18/2024 2:15 PM CDT Hospital Encounter Department of Radiology, [facility] in [place], [place] [address] [place] [address] Edgar Montgomery M.B.B.S., M.S. [address] [place] [phone] 09/20/2024 3:00 PM CDT Comprehensive Visit [facility] for Transplantation and Clinical Regeneration in [place], [place] [address] [place] [phone] Catia Quintana APRN, C.N.P. [address] [place] [phone] 10/03/2024 9:00 AM CDT Appointment Department of Radiology, [facility] in [place], [place] [address] [place] [address] Marisabel Carpenter APRN, C.N.P., D.N.P. [address] [place] [phone] 10/05/2024 12:00 PM CDT Appointment Division of Pulmonary Medicine in [place], [place] [address] [place] [phone] Edgar Montgomery M.B.B.S., M.S. [address] [place] [phone] 10/10/2024 7:50 AM CDT Lab Department of Laboratory Medicine and Pathology, [facility] in [place], [place] [address] [place] [address] Marisabel Carpenter APRN, C.N.P., D.N.P. [address] [place] [phone] 10/10/2024 8:00 AM CDT Lab Department of Laboratory Medicine and Pathology, [facility] in [place], [place] [address] [place] [address] Marisabel Carpenter APRN, C.N.P., D.N.P. [address] [place] [phone] 10/10/2024 8:30 AM CDT Nurse Only [facility] in [place], [place] [address] [place] [address] Marisabel Carpenter APRN, C.N.P., D.N.P. [address] [place] [phone] 10/10/2024 9:20 AM CDT Appointment Department of Radiology, [facility] in [place], [place] [address] [place] [address] Marisabel Carpenter APRN, C.N.P., D.N.P. [address] [place] [phone] 10/10/2024 9:45 AM CDT Appointment Department of Laboratory Medicine and Pathology, [facility] in [place], [place] [address] [place] [address] Marisabel Carpenter APRN, C.N.P., D.N.P. [address] [place] [phone] 10/10/2024 1:30 PM CDT Appointment Department of Radiology, [facility], in [place], [place] [address] [place] [address] Marisabel Carpenter APRN, C.N.P., D.N.P. [address] [place] [phone] 10/10/2024 2:45 PM CDT Appointment Department of Radiology, [facility], in [place], [place] [address] [place] [address] Marisabel Carpenter APRN, C.N.PSuma, D.N.P. [address] [place] [phone] 10/11/2024 8:00 AM CDT Office Visit [facility] for Trans[facility] and Clinical Regeneration in [place], [place] [address] [place] [address] Marisabel Carpenter APRN, C.N.P., D.N.P. [address] [place] [phone] 10/11/2024 11:00 AM CDT Comprehensive Visit [facility] Transplantation and Clinical Regeneration in [place], [place] [address] [place] [address] Sree Devlin M.D. [address] [place] [phone] 10/11/2024 1:00 PM CDT Comprehensive Visit Department of Otorhinolaryngology in [place], [place] [address] [place] [address] Randal Urbano P.A.-C., M.S. [address] [place] [phone] 10/11/2024 2:00 PM CDT Office Visit [facility] Transplantation and Clinical Regeneration in [place], [place] [address] [place] [phone] Hiro Murillo P.A.-C. [address] [place] [phone] 10/11/2024 4:00 PM CDT Comprehensive Visit Department of Dermatology in [place], [place] [address] [place] [phone] Parul Martinez M.D. [address] [place] [phone] 10/12/2024 8:00 AM CDT Telemedicine [facility] Transplantation and Clinical Regeneration in [place], [place] [address] [place] [phone] Ervin Mckeon D.O. [address] [place] [phone] 11/01/2024 2:15 PM CDT Appointment Division of Pulmonary Medicine in [place], [place] [address] [place] [phone] Edgar Montgomery M.B.B.S., M.S. [address] [place] [phone] documented as of this encounter Visit Diagnoses Not on filedocumented in this encounter Additional Health Concerns Infection Onset Date Last Indicated Resolved Time Protective Environment 10/10/2022 10/10/2022 Assessment Noted Time PHQ-9 Depression Total Score: 4 06/18/19 24 12:20 PM PUBLISHING MANAGER documented as of this encounter Care Teams Hand Patcher Relationship Specialty Start Date End Date Ana Red MPAS, PToo. [address] [place] [address] [place] [phone] PCP - General Internal Medicine 12/01/21 [facility] 08/25/21 documented as of this encounter
--- OUTSIDE RECORDS SUMMARY | 2024-09-14 01:29 | XMS_ITS | Encounter Summary ---
Author Organization [facility] Address [address] [place] [id number] Care Team Providers Care Elementary Instructional Coach Name Role Phone Ana Red P.A.-C. Primary Care Pro vider Reason for Visit * Reason Onset Date Comments Reschedule 08/18/2024 RESCHEDULE APPT Encounter Details Date Type Department Care Team (Latest Contact Info) Description 08/18/2024 Clinical Communication Division of Pulmonary Medicine in [place], [place] [address] [place] [phone] Ben Dickson, YARITZA, C.N.P. [address] [place] [phone] Reschedule (RESCHEDULE APPT) Social History Tobacco Use Types Packs/Day Years Used Date Smoking Tobacco: Former Cigarettes 1 - 10/12/2021 Passive Smoke Exposure: Never Smokeless Tobacco: Never Comments:Smoked cigarettes f rom age 18-30 about Alcohol Use Standard Drinks/Week Comments Never 0 (1 standard drink = 0.6 oz pure alcohol) Havent had any alcohol in about a year or so. [facility] Utilities Answer Date Recorded In the past 12 months has e electric, gas, oil, or water [employer] threatened to shut off services in your [...] 02/10/2022 How often do you attend [facility] or rastafari services? Patient declined 02/10/2022 Do you belong to any clubs o r organizations such as yarsanism groups, unions, fraternal [...] Answer Date Recorded PHQ-2 Score 0 08/11/2024 [facility] [employer] [facility] - Occupational Stress [...] living situation today? I have a [facility] place to live 08/22/2024 Education Answer Date Recorded What is the highest level of school you have completed or the highest degree you have received? Associate degree: occupational, technical, or vocational program 07/16/2021 Comments No Sex and Gender Information Value Date Recorded Sex Assigned at Female 04/12/2021 7:39 PM [employer] Legal Sex Female 7:53 PM [employer] Gender Identity Female 04/12/2021 7:39 PM [employer] Sexual Orientation Straight 04/12/2021 7: 39 PM [employer] documented as of this encounter Plan of Treatment Upcoming Encounters Date Type Department Care Team (Latest Contact Info) Description 09/14/2024 11:00 AM CDT Appointment Department of Radiology, [facility], in [place], [place] [address] [place] [address] Noreen Ansari P.A.-C., M.S. [address] [place] [address] Jesus Figueroa M.D. [address] [place] [phone] 09/14/2024 4:00 PM CDT Telemedicine Division of Pulmonary Medicine in [place], [place] [address] [place] [address] Ben Dickson APRN, C.N.P. [address] [place] [phone] 09/15/2024 8:00 AM CDT Lab Department of Laboratory Medicine and Pathology, [facility], in [place], [place] [address] [place] [address] Edgar Montgomery M.B.B.S., M.S. [address] [place] [phone] 09/15/2024 10:00 AM CDT Comprehensive Visit [facility] in [place], [place] [address] [place] [address] Edgar Montgomery M.B.B.S., M.S. [address] [place] [phone] Miriam Strickland M.D. [address] [place] [phone] 09/15/2024 11:00 AM CDT Office Visit [facility] in [place], [place] [address] [place] [address] Edgar Montgomery M.B.B.S., M.S. [address] [place] [phone] Discharge Disposition: Home or Self Care 09/15/2024 1:45 PM CDT Infusion Department of Infusion Therapy in [place], [place] [address] [place] [address] Juan Pete M.D. [address] [place] [phone] 09/18/2024 2:15 PM CDT Hospital Encounter Department of Radiology, [facility] in [place], [place] [address] [place] [address] Edgar Montgomery M.B.B.S., M.S. [address] [place] [phone] 09/20/2024 3:00 PM CDT Comprehensive Visit [facility] [place], [place] [address] [place] [phone] Catia Quintana APRN, C.N.P. [address] [place] [phone] 10/03/2024 9:00 AM CDT Appointment Department of Radiology, [facility] in [place], [place] [address] [place] [address] Marisabel Carpenter APRN, C.N.P., D.N.P. [address] [place] [phone] 10/05/2024 12:00 PM CDT Appointment Division of Pulmonary Medicine in [place], [place] [address] [place] [address] Edgar Montgomery M.B.B.S., M.S. [address] [place] [phone] 10/10/2024 7:50 AM CDT Lab Department of Laboratory Medicine and Pathology, [facility] in [place], [place] [address] [place] [address] Marisabel Carpenter APRN, C.N.P., D.N.P. [address] [place] [phone] 10/10/2024 8:00 AM CDT Lab Department of Laboratory Medicine and Pathology, [facility] in [place], [place] [address] [place] [address] Marisabel Carpenter APRN, C.N.PSuma, D.N.P. [address] [place] [phone] 10/10/2024 8:30 AM CDT Nurse Only Ramirez diaz [facility] in [place], [place] [address] [place] [phone] Marisabel Carpenter APRN, C.N.P., D.N.P. [address] [place] [phone] 10/10/2024 9:20 AM CDT Appointment Department of Radiology, [place], [place] [address] [place] [address] Marisabel Carpenter APRN, C.N.P., D.N.P. [address] [place] [phone] 10/10/2024 9:45 AM CDT Appointment Department of Laboratory Medicine and Pathology, [facility] in [place], [place] [address] [place] [address] Marisabel Carpenter APRN, C.N.PSuma, D.N.P. [address] [place] [phone] 10/10/2024 1:30 PM CDT Appointment Department of Radiology, [facility] in [place], [place] [address] [place] [address] Marisabel Carpenter APRN, C.N.PSuma, D.N.P. [address] [place] [phone] 10/10/2024 2:45 PM CDT Appointment Department of Radiology, [facility] in [place], [place] [address] [place] [address] Marisabel Carpenter APRN, C.N.PSuma, D.N.P. [address] [place] [phone] 10/11/2024 8:00 AM CDT [facility] [place], [place] [address] [place] [address] Marisabel Carpenter APRN, C.N.PSuma, D.N.P. [address] [place] [phone] 10/11/2024 11:00 AM CDT Comprehensive Visit [facility] in [place], [place] [address] [place] [phone] Sree Devlin M.D. [address] [place] [phone] 10/11/2024 1:00 PM CDT Comprehensive Visit Department of Otorhinolaryngology in [place], [place] [address] [place] [phone] Randal Urbano P.A.-C., M.S. [address] [place] [address] 10/11/2024 2:00 PM CDT Office Visit [facility] in [place], [place] [address] [place] [address] Hiro Murillo P.A.-C. [address] [place] [phone] 10/11/2024 4:00 PM CDT Comprehensive Visit Department of Dermatology in [place], [place] [address] [place] [phone] Parul Martinez M.D. [address] [place] [phone] 10/12/2024 8:00 AM CDT Telemedicine [facility] in [place], [place] [address] [place] [address] Ervin Mckeon D.O. [address] [place] [phone] 11/01/2024 2:15 PM CDT Appointment Division of Pulmonary Medicine in [place], [place] [address] [place] [phone] Edgar Montgomery M.B.B.S., M.S. [address] [place] [phone] documented as of this encounter Visit Diagnoses Not on filedocumented in this encounter Additional Health Concerns Infection Onset Date Last Indicated Resolved Time Protective Environment 10/10/2022 10/10/2022 Assessment Noted Time PHQ-9 Depression Total Score: 4 08/12/19 25 3:31 PM CDT documented as of this encounter Care Teams Elementary Instructional Coach Relationship Specialty Start Date End Date Ana Red MPAS, P.A.-C. [address] [facility] [facility] [place] [phone] PCP - General Internal Medicine 12/01/21 [facility] 08/25/21 documented as of this encounter
--- OUTSIDE RECORDS SUMMARY | 2024-09-14 01:30 | XMS_ITS | Encounter Summary ---
Author Organization [facility] Address [address] [place] [address] Care Team Providers Care Unix Engineer Name Role Phone Ana Red P.A.-C. Primary Care Pro vider Reason for Visit * Reason Comments Flank Pain Vomiting * Auth/Cert (Routine) Specialty Diagnoses / Procedures Referred By Meir t Referred To Contact Diagnoses Nausea And Vomiting Abdominal Pain Procedures INPT Referral ID Status Reason Start Date Expiration Date Visits Re quested Visits Authorized [id number] 1 1 Encounter Details Date Type Department Care Team (Latest Contact Info) Description 08/21/2024 6:26 PM CDT - 08/25/2024 8:23 PM CDT Hospital Encounter [facility], [facility], [facility] ([facility] Sixth Floor [address] [place] [phone] Antonio Olivia M.D. [address] [place] [phone] Pallavi Dyson M.D. 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 [facility] Utilities Answer Date Recorded In the past 12 months has e [employer], gas, oil, or water [employer] threatened to shut off services in your [...] How often do you attend [facility] or [employer] [employer] services? Patient declined 02/10/2022 Do you [...] Answer Date Recorded PHQ-2 Score 0 08/11/2024 [facility] of Occupat ional [...] a [facility] place to live 08/22/2024 Education Answer Date Recorded What is the highest level of school you have completed or the highest degree you have received? Associate degree: occupational, technical, or vocational program 07/16/2021 Comments No Sex and Gender Information Value Date Recorded Sex Assigned at Female 04/12/2021 7:39 PM BILINGUAL NANNY Legal Sex Female 7:53 PM BILINGUAL NANNY Gender Identity Female 04/12/2021 7:39 PM BILINGUAL NANNY Sexual Orientation Straight 04/12/2021 7: 39 PM BILINGUAL NANNY documented as of this encounter Last Filed [...] OVERVIEW Hospital: [facility] Discharge Provider: Pallavi Dyson M.D. Primary [facility]: [facility] ([facility]) Primary Care Providers: Ana Red MPAS, P.A.-CSuma (General) [address] [place] [phone] Primary Care Provider Primary Care Provider Other [...] infusion 08/27/2024 at the infusion center in [facility]. Please ensure you receive this to [...] prior to your follow-up appointments, contact the [facility] Cold Storage Worker at [phone] and ask to speak with the Medicine 3 Service OUTPATIENT FOLLOW UP Scheduled Appointments Next 10 Appointments 08/27/2024 8:00 AM INF RN NURSE GUERA Infusion Therapy 09/01/2024 11:00 AM Ana Red MPAS, P.A.-C. [facility] Internal [facility] 09/14/2024 4:00 PM [facility] 01 [facility] Pulmonary Medicine 10/03/2024 9:00 AM US [facility] 03 RM 14 Radiology 10/10/2024 7:50 AM LAB BLOOD [facility] Laboratory Medicine 10/10/2024 8:00 AM LAB URINE CONTAINER [facility] Laboratory Medicine 10/10/2024 8:30 AM TXP POST [...] AM CDT You were discharged [facility] the [facility] ([facility]) Service. Please identify this service name [...] glucose testing. 1 each 05/15/2024 1:09 PM BILINGUAL NANNY 05/15/2024 blood sugar diagnostic strips Use to test blood sugar 2 time(s) per day. 100 test 1 07/04/2024 1:55 PM BILINGUAL NANNY 07/04/2024 07/05/19 blood-glucose meter misc Test as directed for diabetes control. 1 each 05/15/2024 1:09 PM BILINGUAL NANNY 05/15/2024 blood-glucose sensor (FreeStyle Kristina 3 Plus [...] testing. 100 each 1 07/04/2024 1:55 PM BILINGUAL NANNY 07/04/2024 levonorgestreL (MIRENA) 21 mcg/24 hours (8 yrs) 52 mg IUD 1 Intra Uterine Device (1 each total) by intrauterine route continuously. Inserted 07/31/2022. 1 each 12/31/2022 lidocaine 4 % adhesive patch,medicated Place 1 patch on the skin daily. Apply to painful areas. 30 patch 1 04/20/2024 pcehnz-frhzotfx-ap ylase (Creon) 12,000-38,000-60,[address] [...] minimal response. 2 each 04/25/2024 12:55 PM BILINGUAL NANNY 04/25/2024 pantoprazole (Protonix) 40 mg EC tabletIndications: [...] each 2 08/10/2024 4:35 PM CDT 07/04/2024 polyethylene glycol (Miralax) 17 gram powder packet Take 1 packet (17 g total) by mouth daily. Dissolve each 17 g dose in 240 mLs (8 ounces) of beverage. 30 packet 06/28/2024 predniSONE (Deltasone) 5 mg tablet Take 1 tablet (5 mg total) by mouth daily. 90 tablet 06/27/2024 5:33 PM BILINGUAL NANNY 06/28/2024 sennosides-docusat e sodium (Senokot-S) 8.6-50 mg per tablet Take 1 tablet by mouth 2 (two) times a day as needed for constipation. 100 tablet 06/27/2024 5:33 PM BILINGUAL NANNY 06/27/2024 teriparatide (Forteo) 20 mcg/dose (600mcg/2.4mL) injection Inject [...] mg tabletIndications: Transplant Liver (HCC),Nausea,Medic ation Therapy Custodial Not 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 Take 1 tablet (4 mg total) by mouth every 6 (six) hours as needed for nausea or vomiting. 28 tablet 08/25/2024 8:13 PM CDT 08/25/2024 09/09/19 25 pregabalin (Lyrica) 100 mg capsule Take 1 capsule (100 mg total) by mouth 2 (two) times a day. 60 capsule 08/25/2024 09/07/19 25 pregabalin (Lyrica) 25 mg capsule Take 1 capsule (25 mg total) by mouth 2 (two) times a day. 60 capsule 08/25/2024 09/09/19 25 tacrolimus (Prograf) 1 mg capsuleIndications :prevention of liver transplant rejection Place 2 capsules (2 mg total) under the tongue every morning AND 2 capsules (2 mg total) every evening. 360 capsule 3 06/27/2024 5:33 PM BILINGUAL NANNY 06/27/2024 09/09/19 25 documented as of this encounter Progress Notes * Pallavi Dyson M.D. - 08/25/2024 5:09 PM CDT T Medicine 3 ([facility]) Supervisory Note I have seen and [...] providing and coordinating care today. * Shea Hernandez, JANN, LD - 08/25/2024 2:58 PM CDT Clinical [...] Accumulation: Absent Estimated Needs: Total Calorie Needs: 8770-2148 calories/day Method to Estimate Energy Needs: kcal/kg [...] about patient's nutritional care please contact pager [phone] on weekdays 07:30-16:00 or [phone] on weekends/holidays ([facility]) [phone]. [1] Current Facility-Administered Medications: acetaminophen tablet 500 mg (TylenoL), 500 mg, oral, Q6H PRN, Alyssa Terry APRN, C.N.P., M.S.N. acetaminophen tablet 650 mg (TylenoL), 650 mg, oral, TID, Barrera Cerda M.D., 650 mg at 08/25/24 0845 shajgtmveovwo-agwneknqbo-pqzcipmj in Lipoderm 2%-5%-5% cream 1 g, 1 [...] Cerda M.D., 1 patch at 08/25/24 0849 hgmxkt-mtcleooc-tmuikag 12,000-38,000-60,[address] capsule 24,000 Units of lipase (Creon), 24,000 Units of lipase, oral, TID with meals, Barrera Cerda M.D., 24,000 Units of lipase at 08/25/24 1221 [COMPLETED] methylPREDNISolone sodium succinate 1,000 mg in NaCl 0.9% IVPB, 1,000 mg, intravenous, Once, Last Rate: 116 mL/hr at 08/25/24 0905, 1,000 mg at 08/25/24 0905 FOLLOWED BY [START ON 08/27/2024] methylPREDNISolone sodium succinate 1,000 mg in NaCl 0.9% IVPB, 1,000 mg, intravenous, Once,Celena Rodriguez M.D., M.E. mirtazapine tablet 15 mg (Remeron), 15 mg, oral, Daily at bedtime, Barrera Cerda M.D., 15 mg at 08/24/242010 wqipgblykkvy-ngqe-IB-Ca-minerals 400 mcg (folic acid) tablet 1 tablet, 1 tablet, oral, Daily, Barrera Cerda M.D., 1 tablet at 08/25/24 0844 naloxone injection 0.4 mg (Narcan), 0.4 mg, intravenous, PRN, Barrera Cerda M.D. ondansetron ODT disintegrating tablet 4 mg (Zofran-ODT), 4 mg, oral, Once, Celena Rodriguez M.D., M.E. pantoprazole DR tablet 40 mg (Protonix), 40 [...] 125 mg, oral, BID, Celena Rodriguez M.D., M.E., 125 mg at 08/25/24 0845 prochlorperazine tablet [...] bedtime PRN, Barrera Cerda M.D. * Jorge Villarreal, D., R.Ph. - 08/25/2024 10:03 AM CDT Pharmacist [...] 08/25/2024 7:22 AM CDT T Medicine 3 ([facility]) PROGRESS NOTE SUBJECTIVE HISTORY OF PRESENT ILLNESS Ms. Catia Burnson is a 34 y.o. female who presents [...] No evidence of disorganized thinking. 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 ASSESSMENT / PLAN Ms. Catia Brunson is [...] frequent meals and/or snacks Plan discussed with [facility] ([facility]) Professional Development Instructor, Dr. Dyson, who was present during judd portions of the evaluation today. Please page the [facility] ([facility]) service pager at [phone] with any questions. Ludivina Rodriguez M.D., M.E. Internal Medicine Resident - PGY-1 Personal pager: [phone] * Celena Rodriguez M.D., Jaquan. - 08/24/2024 3:55 PM CDT [facility] ([facility]) PROGRESS NOTE SUBJECTIVE HISTORY OF PRESENT [...] No evidence of disorganized thinking. 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 ASSESSMENT / PLAN Ms. Catia Brunson is [...] frequent meals and/or snacks Plan discussed with [facility] ([facility]) Professional Development Instructor, Dr. Dyson, who was present during judd portions of the evaluation today. Please page the [facility] ([facility]) service pager at [phone] with any questions. Ludivina Rodriguez M.D., M.E. Internal Medicine Resident - PGY-1 Personal pager: [phone] * Pallavi Dyson M.D. - 08/24/2024 1:06 PM CDT [facility] ([facility]) Supervisory Note I have seen and [...] we will send a message to her study coordinator to help get her set up with IV infusions. We will sign off. Case was discussed with supervising sap payroll consultant Dr. Hirsch. Please contact us at [phone] with any questions or concerns. -- Xu Joel MD PGY-4 Department of Gastroenterology and Hepatology Fellow Cosigned by Arun Hirsch M.D. at 08/24/2024 12:56 PM CDT * Pallavi Dyson M.D. - 08/23/2024 4:56 PM CDT [facility] ([facility]) Supervisory Note I have seen and [...] from the original note were not included. [facility] Medicine 3 ([facility]) PROGRESS NOTE SUBJECTIVE HISTORY OF PRESENT ILLNESS Ms. Brunson is hospitalized [facility] ([facility]) for evaluation and management of chronic [...] No evidence of disorganized thinking. 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 Results: 08/23/24 Inorganic phosphate - 3.8 (stable) Magnesium - 1.8 (stable) Potassium - 3.3 (3.5) Tacrolimus trough - pending Phosphatidylethanol - pending CBC - stable Prothrombin time - 11.3 INR - 1.0 (1.1) ASSESSMENT / PLAN Ms. Brunson is hospitalized on [facility] 3 ([facility]) for evaluation and management of potential [...] frequent meals and/or snacks Plan discussed with [facility] ([facility]) Professional Development Instructor, Dr. Dyson, who was present during judd portions of the evaluation today. Please page the [facility] ([facility]) service pager at [phone] with any questions. Electronically signed by: Ramo Muñoz [facility] Medical Student, 08/23/24 2:14 PM CDT Cosigned by Celena Rodriguez M.D., M.E. at 08/23/2024 5:59 PM CDT * Celena Rodriguez M.D., M.E. - 08/23/2024 6:45 AM CDT [facility] ([facility]) PROGRESS NOTE SUBJECTIVE HISTORY OF PRESENT [...] No evidence of disorganized thinking. 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 ASSESSMENT / PLAN Ms. Catia Brunson is [...] + spot dosing at the 4 hour rielly if there is breakthrough pain (frequency increased [...] frequent meals and/or snacks Plan discussed with [facility] ([facility]) Professional Development Instructor, Dr. Dyson, who was present during judd portions of the evaluation today. Please page the [facility] ([facility]) service pager at [phone] with any questions. Ludivina Rodriguez M.D., M.E. Internal Medicine Resident - PGY-1 Personal pager: [phone] * Jorge Villarreal PharmSumaDSuma, R.Ph. - 08/22/2024 10:26 AM CDT Pharmacist [...] correction Jorge Villarreal Pharm.D., R.Ph. * Jorge Villarreal, Pharm.D., R.Ph. - 08/22/2024 8:03 AM CDT [...] +3 units 300-339: +5 units 340-379: +7 htgje321-926: +9 units Greater than 399: Call service [...] the skin daily. Apply to painful areas. mzdfzz-ptuwdcdg-bpyrbah (Creon) 12,000-38,000-60,[address] capsule -- [...] of brand name Prograf; Do not use [employer] generic tacrolimus products. Indications: liver transplant rejection [...] Dyson M.D. - 08/22/2024 3:11 PM CDT [facility] ([facility]) Supervisory Note I have seen and [...] Cerda M.D. - 08/22/2024 12:05 AM CDT [facility] ([facility]) Admission Note SUBJECTIVE CHIEF COMPLAINT: LLQ [...] No evidence of disorganized thinking. 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 ASSESSMENT / PLAN Ms. Brunson is hospitalized [facility] ([facility]) for evaluation and management of chronic [...] facility): Probably home, TBD Plan discussed with [facility] ([facility]) , Dr. Loo, who was present during judd portions of the evaluation today. Please page the [facility] ([facility]) service pager at [phone] with any questions. * Elias Loo Jr., M.D. - 08/21/2024 10:35 PM CDT T Medicine 3 ([facility]) MEDICINE SENIOR SUPERVISORY NOTE SUBJECTIVE Catia [...] No evidence of disorganized thinking. 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 DIAGNOSTICS I have personally reviewed the laboratory [...] details. Please page the T Medicine 3 ([facility]) service pager at [phone] with any questions. documented in this encounter [...] CONSULTATION: 08/22/2024 REQUESTING SERVICE: T Medicine 3 ([facility]) CONSULT QUESTION/CONCERN We are seeing Catia Brunson at the request of T Medicine 3 ([facility]) for the evaluation of nausea, vomiting [...] page the GI Hepatobiliary consult pager at [phone] with any questions or concerns. -- Xu [...] kiwi) Size: 1 each Take at: Lunch 08/22/2490408/22/24904 Oral supplement -Supplement; Ensure Clear (mixed ulloa); 1 each; Take at: Breakfast, Dinner (Oral Nutrition Supplement) Until discontinued Question Answer Comment Type: Supplement Supplement: Ensure Clear (mixed ulloa) Size: 1 each Take at: Breakfast Take at: Dinner 08/22/2490408/21/242345 Adult Diet Regular (Adult Diet) Diet effective now Question: Diet texture: Answer: Regular 08/21/24 234 Pertinent Labs: Last 3 results Lab Units 08/22/24 04208/21/24 1847 SODIUM P mmol/L -- 138 SODIUM [...] -- Last 3 results Lab Units 08/22/24 04208/21/24 1847 ALBUMIN g/dL 3.7 4.9 Chewing and [...] Accumulation: Absent Estimated Needs: Total Calorie Needs: 2621-7365 calories/day Method to Estimate Energy Needs: kcal/kg [...] about patient's nutritional care please contact pager [phone] on weekdays 07:30-16:00 or [phone] on weekends/holidays ([facility]) [phone]. [1] Current Facility-Administered Medications: acetaminophen tablet 650 mg (TylenoL), 650 mg, oral, TID, Barrera Cerda M.D., 650 mg at 08/22/24 0854 hebdbabzikapb-lwcuxgmroz-ikmzhkle in Lipoderm 2%-5%-5% cream 1 g, 1 [...] (NovoLOG FlexPen), 0-9 Units, subcutaneous, TID, Pasha Adkins Pharm.DSuma, R.Ph., BCPS, 1 Units at 08/22/24 1256 insulin glargine injection 7 Units, 7 Units, subcutaneous, BID, Barrera Cerda M.D.,7 Units at 08/22/24 0855 lidocaine 5 % 1 patch (Lidoderm), 1 patch, transdermal, Daily, Barrera Cerda M.D., 1 patch at 08/22/24 0032 qkoxqo-cryrekox-eidsxin 12,000-38,000-60,[address] capsule 24,000 Units of lipase (Creon), 24,000 Units of lipase, oral, TID with meals, Barrera Cerda M.D., 24,000 Units of lipase at 08/22/24 1233 metoclopramide injection 10 mg (Reglan), 10 mg, intravenous, Q12H PRN, Barrera Cerda M.D., 10 mg at 08/22/24 0459 mirtazapine tablet 15 mg (Remeron), 15 mg, oral, Daily at bedtime, Barrera Cerda M.D. fngsrvzjhkaz-tgjk-QL-Ca-minerals 400 mcg (folic acid) tablet 1 tablet, [...] Discharge Problem: Risk for Compromised Skin Integrity-Other Bench Press Operator(s) Goal: Risk for Compromised Skin Integrity-Other Bench Press Operator(s) Outcome: Adequate for Discharge Problem: Risk for Compromised Skin Integrity-Altaf Nutrition Score 1 or 2 Goal: Improve nutritional status to maintain or improve skin integrity. Outcome: Adequate for Discharge * Wenceslao Quiros V. RSumaN. - 08/25/2024 4:50 AM CDT Shift Goals: [...] Progressing Problem: Risk for Compromised Skin Integrity-Other Bench Press Operator(s) Goal: Risk for Compromised Skin Integrity-Other Bench Press Operator(s) Outcome: Progressing Problem: Risk for Compromised Skin [...] time. Spouse was bedside. * Wenceslao Quiros R.N. - 08/24/2024 4:37 AM CDT Shift Goals: [...] safe environment Outcome: Progressing * Alba Hagen RGabby - 08/22/2024 5:55 PM CDT Shift Goals: [...] Progressing Problem: Risk for Compromised Skin Integrity-Other Bench Press Operator(s) Goal: Risk for Compromised Skin Integrity-Other Bench Press Operator(s) Outcome: Progressing Problem: Risk for Compromised Skin [...] at 08/22/2024 11:59 AM CDT * Evelina Rg R.N. - 08/21/2024 6:42 PM CDT Patient [...] transplant. Hepatic steatosis. Ultrasound Liver transplant (08/21/24 (Adele): allograft: Diffuse increased echogenicity of the liver parenchyma is again seen compatible with moderate hepatic steatosis. The steatosis limits soundbeam penetration/evaluation of central/deep portions of the liver. Liver biopsy (XIMENA Melton) 08/24/24: Liver, parenchyma, allograft, needle biopsy: Mild [...] * Hospital Course - Celena Rodriguez M.D., MFlaco - 08/22/2024 12:14 PM CDT Brief History Prior to Admission Ms. Brunson [...] Center on 08/15 during/after which she was intended to discontinue her Dilaudid. She was seen in the emergency department on 08/19 for acute on chronicleft lower quadrant abdominal pain and nausea; ALT [...] CDT Appointment Department of Radiology, [facility] in [place], [place] [address] [place] [address] Noreen Ansari P.A.-C., M.S. [address] [place] [phone] Jesus Figueroa M.D. [address] [place] [phone] 09/14/2024 4:00 PM CDT Telemedicine Division of Pulmonary Medicine in [place], [place] [address] [place] [address] Ben Dickson APRN, CSumaN.P. [address] [place] [phone] 09/15/2024 8:00 AM CDT Lab Department of Laboratory Medicine and Pathology, [facility] in [place], [place] [address] [place] [address] Edgar Montgomery M.B.B.S., M.S. [address] [place] [phone] 09/15/2024 10:00 AM CDT [facility] [place], [place] [address] [place] [address] Edgar Montgomery M.B.B.S., M.S. [address] [place] [phone] Miriam Strickland M.D. [address] [place] [phone] 09/15/2024 11:00 AM CDT [facility] in [place], [place] [address] [place] [address] Edgar Montgomery M.B.B.S., M.S. [address] [place] [phone] Discharge Disposition: Home or Self Care 09/15/2024 1:45 PM CDT Infusion Department of Infusion Therapy in [place], [place] [address] [place] [address] Juan Pete M.D. [address] [place] [phone] 09/18/2024 2:15 PM CDT Hospital Encounter Department of Radiology, [facility] in [place], [place] [address] [place] [address] Edgar Montgomery M.B.B.S., M.S. [address] [place] [phone] 09/20/2024 3:00 PM CDT Comprehensive Visit [facility] in [place], [place] [address] [place] [address] Catia Quintana APRN, C.N.P. [address] [place] [phone] 10/03/2024 9:00 AM CDT Appointment Department of Radiology, [facility], in [place], [place] [address] [place] [address] Marisabel Carpenter APRN, C.N.P., D.N.P. [address] [place] [phone] 10/05/2024 12:00 PM CDT Appointment Division of Pulmonary Medicine in [place], [place] [address] [place] [address] Edgar Montgomery M.B.B.S., M.S. [address] [place] [phone] 10/10/2024 7:50 AM CDT Lab Department of Laboratory Medicine and Pathology, [facility] in [place], [place] [address] [place] [address] Marisabel Carpenter APRN, C.N.P., D.N.P. [address] [place] [phone] 10/10/2024 8:00 AM CDT Lab Department of Laboratory Medicine and Pathology, [facility] in [place], [place] [address] [place] [address] Marisabel Carpenter APRN, C.N.P., D.N.P. [address] [place] [phone] 10/10/2024 8:30 AM CDT Nurse Only Ramirez [facility] in [place], [place] [address] [place] [address] Marisabel Carpenter APRN, C.N.P., D.N.P. [address] [place] [phone] 10/10/2024 9:20 AM CDT Appointment Department of Radiology, [facility] in [place], [place] [address] [place] [address] Marisabel Carpenter APRN, C.N.P., D.N.P. [address] [place] [phone] 10/10/2024 9:45 AM CDT Appointment Department of Laboratory Medicine and Pathology, [facility] in [place], [place] [address] [place] [address] Marisabel Carpenter APRN, C.N.PSuma, D.N.P. [address] [place] [phone] 10/10/2024 1:30 PM CDT Appointment Department of Radiology, [facility] in [place], [place] [address] [place] [address] Marisabel Carpenter APRN C.N.P., D.N.P. [address] [place] [phone] 10/10/2024 2:45 PM CDT Appointment Department of Radiology, [facility] in [place], [place] [address] [place] [address] Marisabel Carpenter APRN, C.N.P., D.N.P. [address] [place] [phone] 10/11/2024 8:00 AM CDT Office Visit Ramirez Navarrete [facility] [place] [facility] in [place], [place] [address] [place] [address] Marisabel Carpenter APRN, C.N.P., D.N.P. [address] [place] [phone] 10/11/2024 11:00 AM CDT Comprehensive [facility] [place] [facility] in [place], [place] [address] [place] [address] Sree Devlin M.D. [address] [place] [phone] 10/11/2024 1:00 PM CDT Comprehensive Visit Department of Otorhinolaryngology in [place], [place] [address] [place] [address] Randal Urbano P.A.-C., M.S. [address] [place] [phone] 10/11/2024 2:00 PM CDT Office Visit [facility] in [place], [place] [address] [place] [address] Hiro Murillo P.A.-C. [address] [place] [phone] 10/11/2024 4:00 PM CDT Comprehensive Visit Department of Dermatology in [place], [place] [address] [place] [phone] Parul Martinez M.D. [address] [place] [phone] 10/12/2024 8:00 AM CDT Telemedicine [facility] Clinical Regeneration in [place], [place] [address] [place] [phone] Ervin Mckeon D.O. [address] [place] [phone] 11/01/2024 2:15 PM CDT Appointment Division of Pulmonary Medicine in [place], [place] [address] [place] [phone] Edgar Montgomery M.B.B.S., M.S. [address] [place] [phone] Scheduled Orders Name Type Priority Associated Diagnoses Orde r Schedule Bacterial Culture, Aerobic + Susceptibility, Urine Microbiology STAT STAT for 1 Occur rences starting 08/21/2024 until 08/21/2024 documented as of this encounter Procedures Procedure [...] PM CDT CBC WITH DIFFERENTIAL, B Routine 12:23 PM CDT PHOSPHATIDYLETHANOL CONFIRMATION, B Routine [...] (ABNORMAL) Glucose, POCT (08/25/2024 5:03 PM CDT) Glucose, POCT, B 391(H) 70 - 140 mg/dL 08/25/2024 5:14 PM CDT PCLX Site Capillary 08/25/2024 5:14 PM CDT PCLX Last Intake 3-4 hours 08/25/2024 5:14 PM CDT PCLX Blood 08/25/2024 5:03 PM CDT 08/25/2024 5:14 PM CDT us Unknown Provider LAB POCT ORDERABLES-MANUAL Lupe l Result Performing Organization Address City/[facility]/ZIP Co de Phone Number [facility] 200 [place] [address], [facility] PCLX [facility] 200 [place] [address] * Glucose, POCT (08/25/2024 12:34 PM CDT) [facility] Glucose, POCT, B 124 70 - 140 mg/dL 08/25/2024 12:36 PM CDT PCLX Site Capillary 08/25/2024 12:36 PM CDT PCLX Last Intake <1 hour 08/25/2024 12:36 PM CDT PCLX Blood 08/25/2024 12:3 4 PM CDT 08/25/2024 12:37 PM CDT us Unknown Provider LAB POCT ORDERABLES-MANUAL Lupe l Result Performing Organization Address City/[facility]/ZIP Co de Phone Number [facility] 200 [place] [address], [facility] PCLX [facility]OC 200 [place] [address] * Glucose, POCT (08/25/2024 12:07 PM CDT) Glucose, POCT, B 76 70 - 140 mg/dL 08/25/2024 12:10 PM CDT PCLX Site Capillary 08/25/2024 12:10 PM CDT PCLX Last Intake 2-3 hours 08/25/2024 12:10 PM CDT PCLX Blood 08/25/2024 12:0 7 PM CDT 08/25/2024 12:10 PM CDT us Unknown Provider LAB POCT ORDERABLES-MANUAL Lupe l Result [facility] [address] [place] [address], [facility] PCLX [facility] POC [address] [place] [address] * (ABNORMAL) Basic Metabolic Panel (08/25/2024 9:15 AM CDT) Pathologist [facility] Potassium, S 3.7 3.6 - 5.2 mmol/L [...] AM CDT 08/25/2024 10:12 AM CDT us Jaquan Richardson M.D.. LAB BLOOD ADD-ON Fi nal Result Performing Organization Address [facility]/ZIP Co de Phone Number [facility] [place] [address] DTL [facility] 200 [place] [address] * (ABNORMAL) Glucose, POCT (08/25/2024 8:27 AM CDT) Glucose, POCT, B 193(H) 70 - 140 mg/dL 08/25/2024 8:30 AM CDT PCLX Site Capillary 08/25/2024 8:30 AM CDT PCLX Last Intake > 4 hours 08/25/2024 8:30 AM CDT PCLX Blood 08/25/2024 8:27 AM CDT 08/25/2024 8:30 AM CDT us Unknown Provider LAB POCT ORDERABLES-MANUAL Lupe l Result Performing Organization Address [facility] de Phone Number [facility] [address] PCLX [facility] 200 [place] [address] * (ABNORMAL) Glucose, POCT (08/24/2024 10:11 PM CDT) Glucose, POCT, B 223(H) 70 - 140 mg/dL 08/24/2024 10:13 PM CDT PCLX Site Capillary 08/24/2024 10:13 PM CDT PCLX Last Intake 2-3 hours 08/24/2024 10:13 PM CDT PCLX Blood 08/24/2024 10:1 1 PM CDT 08/24/2024 10:13 PM CDT us Unknown Provider LAB POCT ORDERABLES-MANUAL Lupe l Result Performing Organization Address City/[facility]/ZIP Co de Phone Number [facility] 200 [place] [address], [facility] PCLX [facility] 200 [place] [address] * (ABNORMAL) Glucose, POCT (08/24/2024 4:30 PM CDT) Glucose, POCT, B 406(H) 70 - 140 mg/dL 08/24/2024 4:33 PM CDT PCLX Last Intake 3-4 hours 08/24/2024 4:33 PM CDT PCLX Blood 08/24/2024 4:30 PM CDT 08/24/2024 4:33 PM CDT us Unknown Provider LAB POCT ORDERABLES-MANUAL Lupe l Result Performing Organization Address [facility] Co de Phone Number [facility] 200 [place] [address], [facility] PCLX [facility] 200 [place] [address] * (ABNORMAL) Glucose, POCT (08/24/2024 2:18 PM CDT) Glucose, POCT, B 323(H) 70 - 140 mg/dL 08/24/2024 2:23 PM CDT PCLX Site Capillary 08/24/2024 2:23 PM CDT PCLX Last Intake 2-3 hours 08/24/2024 2:23 PM CDT PCLX Blood 08/24/2024 2:18 PM CDT 08/24/2024 2:23 PM CDT us Unknown Provider LAB POCT ORDERABLES-MANUAL Lupe l Result Performing Organization Address [facility] Co de Phone Number [facility] 200 [place] [address], [facility] PCLX [facility] P[facility] 200 [place] [address] * (ABNORMAL) Glucose, POCT (08/24/2024 7:40 AM CDT) Glucose, POCT, B 342(H) 70 - 140 mg/dL 08/24/2024 7:42 AM CDT PCLX Site Capillary 08/24/2024 7:42 AM CDT PCLX Blood 08/24/2024 7:40 AM CDT 08/24/2024 7:42 AM CDT us Unknown Provider LAB POCT ORDERABLES-MANUAL Lupe l Result Performing Organization Address City/[facility]/ZIP Co de Phone Number [facility] [address] [place] [address], [facility] PCLX [facility] POC [address] [place] [address] * (ABNORMAL) Tacrolimus, Trough (08/24/2024 7:04 AM CDT) Pathologist [facility] Tacrolimus, Trough 2.0(L) 5.0-15.0 (Trough) ng/mL 08/24/2024 1:38 PM CDT [facility] Comment: ----ADDITIONAL INFORMATION---- Target steady-state trough concentrations vary depending on the type of transplant, concomitant immunosuppression, clinical/institutional protocols, and time post-transplant. Results should be interpreted in conjunction with this clinical information and any physical signs/symptoms of rejection/toxicity. Testing performed by Liquid Chromatography-Tandem Mass Spectrometry (LC-MS/MS). This test was developed and its performance characteristics determined by [facility] in a manner consistent with CLIA requirements. This test has not been cleared or approved by the U.S. Food and Drug Administration. Blood (Blood, Venous) 08/24/2024 7:04 AM CDT 08/24/2024 9:21 AM CDT us Celena Rodriguez M.D., M.E. LAB BLOOD NON ADD-O N Final Result Performing Organization Address City/[facility]/ZIP Co de Phone Number [facility] [place] [address] [place] [address] [facility] [address] [place] [address] [place] [address] * (ABNORMAL) Basic Metabolic Panel (08/24/2024 7:04 AM CDT) Pathologist [facility] Potassium, S 4.3 3.6 - 5.2 mmol/L [...] 7:04 AM CDT 08/24/2024 7:49 AM CDT us Celena Rodriguez M.D., M.E. LAB BLOOD ADD-ON Fi nal Result [facility] [place] [address] [place] [address], [facility] [address] [place] [address] * Magnesium (08/24/2024 7:04 AM CDT) Magnesium, S 1.8 1.7 - 2.3 mg/dL 08/24/2024 8:08 AM CDT DTL Blood (Blood, Venous) 08/24/2024 7:04 AM CDT 08/24/2024 7:44 AM CDT Barrera Lewis M.D. LAB BLOOD ADD-O N Final Result Performing Organization Address [facility] Co de Phone Number [facility] [place] 200 [place] [address], [address] [address] * Phosphorus Inorganic (08/24/2024 7:04 AM CDT) Phosphorus (Inorganic), S 3.3 2.5 - 4.5 mg/dL 08/24/2024 8:08 AM CDT DTL Blood (Blood, Venous) 08/24/2024 7:04 AM CDT 08/24/2024 7:44 AM CDT Barrera Lewis M.D. LAB BLOOD ADD-O N Final Result Performing Organization Address [facility] Co de Phone Number [facility] [place] 200 [place] [address], [facility] 200 [place] [address] * (ABNORMAL) Hepatic Function Panel (08/24/2024 7:04 [...] M.D. LAB BLOOD ADD-O N Final Result [facility] [place] [address] [place] [address], [facility] DTL [facility] [address] [place] [address] * (ABNORMAL) CBC with Differential, Blood (08/24/2024 7:04 AM CDT) Hemoglobin 13.5 11.6 - 15.0 g/dL 08/24/2024 [...] ADD-O N Final Result Performing Organization Address [facility] Co de Phone Number [facility] [place] 200 [place] [address], [facility] DTL [facility] 200 [place] [address] DHPM [facility] 200 [place] [address] * (ABNORMAL) Glucose, POCT (08/23/2024 10:18 PM CDT) Glucose, POCT, B 238(H) 70 - 140 mg/dL 08/23/2024 10:20 PM CDT PCLX Site Capillary 08/23/2024 10:20 PM CDT PCLX Last Intake 1-2 hours 08/23/2024 10:20 PM CDT PCLX Blood 08/23/2024 10:1 8 PM CDT 08/23/2024 10:20 PM CDT Unknown Provider LAB POCT ORDERABLES-MANUAL Lupe l Result [facility] 200 [place] [address], [facility] PCLX [facility] 200 [place] [address] * (ABNORMAL) Glucose, POCT (08/23/2024 6:21 PM CDT) Glucose, POCT, B 393(H) 70 - 140 mg/dL 08/23/2024 6:26 PM CDT PCLX Site Capillary 08/23/2024 6:26 PM CDT PCLX Blood 08/23/2024 6:21 PM CDT 08/23/2024 6:27 PM CDT Unknown Provider LAB POCT ORDERABLES-MANUAL Lupe l Result Performing Organization Address [facility] Co de Phone Number [facility] 200 [place] [address], [facility] PCLX [facility] 200 [place] [address] * (ABNORMAL) Glucose, POCT (08/23/2024 12:23 PM CDT) Glucose, POCT, B 158(H) 70 - 140 mg/dL 08/23/2024 12:29 PM CDT PCLX Site Capillary 08/23/2024 12:29 PM CDT PCLX Blood 08/23/2024 12:2 3 PM CDT 08/23/2024 12:29 PM CDT Unknown Provider LAB POCT ORDERABLES-MANUAL Lupe l Result Performing Organization Address [facility] de Phone Number [facility] 200 [place] [address], [facility] PCLX [facility] P[facility] 200 [place] [address] * Prothrombin Time (PT) (08/23/2024 12:23 PM CDT) Prothrombin Time, P 11.3 9.4 - 12.5 sec 08/23/2024 1:33 PM CDT DTL INR 1.0 0.9 - 1.1 08/23/2024 1:33 PM CDT DTL Comment: ----ADDITIONAL INFORMATION---- Standard intensity warfarin therapeutic range: 2.0 to 3.0 High intensity warfarin therapeutic range: 2.5 to 3.5 Blood (Blood, Venous) 08/23/2024 12:23 PM CDT 08/23/2024 1:01 PM CDT Celena Rodriguez M.D., M.E. LAB BLOOD ADD-ON Fi nal Result [facility] [place] [address] [place] [address], [facility] DTL [facility] [address] [place] [address] * (ABNORMAL) CBC with Differential, Blood (08/23/2024 12:23 PM CDT) Hemoglobin 15.5(H) 11.6 - 15.0 g/dL 08/23/2024 [...] M.D. LAB BLOOD ADD-O N Final Result [facility] [place] [address] [place] [address], [place] DTL [facility] [address] [place] [address] DHPM [facility] 200 [place] [address] * Phosphatidylethanol Confirmation (08/23/2024 12:22 PM CDT) PEth 16:0/18:1 (POPEth) by LC-MS/MS <10 Cutoff: 10 ng/mL 08/25/2024 1:44 AM CDT [facility] Comment: Phosphatidylethanol (PEth) homologues result interpretation PEth [...] Cutoff: 10 ng/mL 08/25/2024 1:44 AM CDT [facility] Comment: PEth 16:0/18:2 (PLPEth) Reference ranges are not well established PEth Interpretation Negative. 08/25 1:44 AM CDT [facility] Comment: ----ADDITIONAL INFORMATION---- This report is intended for use in clinical monitoring and management of patients. It is not intended for use in employment-related testing. This test was developed and its performance characteristics determined by [facility] in a manner consistent with CLIA requirements. This test has not been cleared or approved by the U.S. Food and Drug Administration. Blood (Blood, Venous) 08/23/2024 12:22 PM CDT 08/23/2024 2:46 PM CDT us July Richardson M.D. LAB BLOOD ADD-ON Fi nal Result Performing Organization Address [facility] Co de Phone Number [facility] [address] [address] [facility] [address] [place] [address] [place] [address] * (ABNORMAL) Tacrolimus, Trough (08/23/2024 10:46 AM CDT) Pathologist [facility] Tacrolimus, Trough 1.8(L) 5.0-15.0 (Trough) ng/mL 08/24/2024 1:32 PM CDT [facility] Comment: ----ADDITIONAL INFORMATION---- Target steady-state trough concentrations vary depending on the type of transplant, concomitant immunosuppression, clinical/institutional protocols, and time post-transplant. Results should be interpreted in conjunction with this clinical information and any physical signs/symptoms of rejection/toxicity. Testing performed by Liquid Chromatography-Tandem Mass Spectrometry (LC-MS/MS). This test was developed and its performance characteristics determined by [facility] in a manner consistent with CLIA requirements. This test has not been cleared or approved by the U.S. Food and Drug Administration. Blood (Blood, Venous) 08/23/2024 10:46 AM CDT 08/23/2024 3:57 PM CDT us July Richardson M.D. LAB BLOOD NON ADD-O N Final Result Performing Organization Address [facility] Co de Phone Number [facility] [address] [address] [facility] [address] [place] [address] [place] [address] * (ABNORMAL) Basic Metabolic Panel (08/23/2024 10:46 AM CDT) Potassium, S 3.3(L) 3.6 - 5.2 mmol/L [...] AM CDT 08/23/2024 11:02 AM CDT us Celena Rodriguez M.D., M.E. LAB BLOOD [place] [address], [facility] [place] [place] [address] * Magnesium (08/23/2024 10:46 AM CDT) Magnesium, S 1.8 1.7 - 2.3 mg/dL 08/23/2024 12:04 PM CDT DTL Blood (Blood, Venous) 08/23/2024 10:46 AM CDT 08/23/2024 11:02 AM CDT us Barrera Lewis M.D. LAB BLOOD ADD-O N Final Result [facility] [place] 200 [place], [place] [address] 200 [place] [address] * Phosphorus Inorganic (08/23/2024 10:46 AM CDT) Phosphorus (Inorganic), S 3.8 2.5 - 4.5 mg/dL 08/23/2024 12:04 PM CDT DTL Blood (Blood, Venous) 08/23/2024 10:46 AM CDT 08/23/2024 11:02 AM CDT us Barrera Lewis M.D. LAB BLOOD ADD-O N Final Result [facility] [place] 200 [place], [place] [address] [place] [address] * (ABNORMAL) Hepatic Function Panel (08/23/2024 10:46 [...] M.D. LAB BLOOD ADD-O N Final Result [facility] [place] [address] [place] [address], [place] DTL [facility] [address] [place] [address] * US Liver Transplant Biopsy (08/23/2024 9:09 [...] hepatic allograft biopsy. NR Amparo Loo M.D. [facility] US PROCEDURES Final Result * Surgical Pathology (08/23/2024 8:39 AM CDT) 08/24/2024 9:30 AM CDT DTL Report electronically signed by Ximena Lund M.D., Ph.D. I verify that I have examined all relevant slides/materials for the specimen(s) and rendered or confirmed the diagnosis. A portion of the testing process was performed at [facility] Instant Opinion site [id number]. 08/24/2024 9:30 AM CDT DTL Gross Description [...] PATH ORDERABLE S Edited Result - Final [facility] [place] [address] [place] [address], [facility] DT [address] [place] [address] * (ABNORMAL) Glucose, POCT (08/23/2024 7:52 AM CDT) Glucose, POCT, B 148(H) 70 - 140 mg/dL 08/23/2024 7:56 AM CDT PCLX Site Capillary 08/23/2024 7:56 AM CDT PCLX Blood 08/23/2024 7:52 AM CDT 08/23/2024 7:56 AM CDT us Unknown Provider LAB POCT ORDERABLES-MANUAL Lupe l Result [facility] 200 [place] [address], [facility] PCLX [facility] 200 [place] [address] * Glucose, POCT (08/22/2024 8:39 PM CDT) Glucose, POCT, B 110 70 - 140 mg/dL 08/22/2024 8:44 PM CDT PCLX Site Capillary 08/22/2024 8:44 PM CDT PCLX Last Intake 3-4 hours 08/22/2024 8:44 PM CDT PCLX Blood 08/22/2024 8:39 PM CDT 08/22/2024 8:44 PM CDT us Unknown Provider LAB POCT ORDERABLES-MANUAL Lupe l Result Performing Organization Address City/[facility]/ZIP Co de Phone Number [facility] 200 [place] [address], [place] PCLX [facility] 200 [place] [address] * Glucose, POCT (08/22/2024 6:33 PM CDT) Glucose, POCT, B 127 70 - 140 mg/dL 08/22/2024 6:36 PM CDT PCLX Site Capillary 08/22/2024 6:36 PM CDT PCLX Last Intake 3-4 hours 08/22/2024 6:36 PM CDT PCLX Blood 08/22/2024 6:33 PM CDT 08/22/2024 6:36 PM CDT us Unknown Provider LAB POCT ORDERABLES-MANUAL Lupe l Result Performing Organization Address City/[facility]/ZIP Co de Phone Number [facility] 200 [place] [address], [place] PCLX [facility] P[facility] 200 [place] [address] * Prothrombin Time (PT) (08/22/2024 3:06 PM CDT) Prothrombin Time, P 11.8 9.4 - 12.5 sec 08/22/2024 3:25 PM [facility]T [facility] 1[facility]1 0.9 - 1.1 08/22/2024 3:25 PM CDT [facility] Comment: ----ADDITIONAL INFORMATION---- Standard intensity warfarin therapeutic range: 2.0 to 3.0 High intensity warfarin therapeutic range: 2.5 to 3.5 Blood (Blood, Venous) 08/22/2024 3:06 PM CDT 08/22/2024 3:11 PM CDT Amparo Loo M.D. LAB BLOOD ADD-ON Final Result Performing Organization Address [facility]/ZIP Co de Phone Number [facility] [place] 200 [place] [address], [facility] 200 [place] [address] * (ABNORMAL) Glucose, POCT (08/22/2024 12:16 PM CDT) Pathologist [facility] Glucose, POCT, B 201(H) 70 - 140 mg/dL 08/22/2024 12:25 PM CDT PCLX Blood 08/22/2024 12:1 6 PM CDT 08/22/2024 12:25 PM CDT Unknown Provider LAB POCT ORDERABLES-MANUAL Lupe l Result Performing Organization Address City/[facility]/ZIP Co de Phone Number [facility] [address] [place] [address], [facility] PCLX [facility] POC 200 [place] [address] * US Liver Transplant (08/22/2024 11:37 AM [...] renal pelvis without any significantassociated calyceal dilatation. Criss Thakkar M.D., M.S. IMG US PROCEDURES Final Result * Tacrolimus, Trough (08/22/2024 10:13 AM CDT) Tacrolimus, Trough 5.8 5.0-15.0 (Trough) ng/mL 08/22/2024 3:25 PM CDT [facility] Comment: ----ADDITIONAL INFORMATION---- Target steady-state trough concentrations vary depending on the type of transplant, concomitant immunosuppression, clinical/institutional protocols, and time post-transplant. Results should be interpreted in conjunction with this clinical information and any physical signs/symptoms of rejection/toxicity. Testing performed by Liquid Chromatography-Tandem Mass Spectrometry (LC-MS/MS). This test was developed and its performance characteristics determined by [facility] in a manner consistent with CLIA requirements. This test has not been cleared or approved by the U.S. Food and Drug Administration. Blood (Blood, Venous) 08/22/2024 10:13 AM CDT 08/22/2024 12:47 PM CDT Result [facility] Barrera Lewis M.D. LAB BLOOD NON A DD-ON Final Result Performing Organization Address City/State/[facility] Co de Phone Number [facility] [address] [place] [address] [facility] [address] [place] [address] [place] [address] * (ABNORMAL) Glucose, POCT (08/22/2024 7:58 AM CDT) Pathologist [facility] Glucose, POCT, B 167(H) 70 - 140 mg/dL 08/22/2024 8:11 AM CDT PCLX Site Capillary 08/22/2024 8:11 AM CDT PCLX Last Intake > 4 hours 08/22/2024 8:11 AM CDT PCLX Blood 08/22/2024 7:58 AM CDT 08/22/2024 8:11 AM CDT us Unknown Provider LAB POCT ORDERABLES-MANUAL Lupe l Result [facility] [address] [place] [address], [facility] PCLX [facility] POC [address] [place] [address] * (ABNORMAL) Basic Metabolic Panel (08/22/2024 4:23 AM CDT) Potassium, S 3.5(L) 3.6 - 5.2 mmol/L [...] 4:23 AM CDT 08/22/2024 5:29 AM CDT us Barrera Lewis M.D. LAB BLOOD ADD-O N Final Result [facility] [place] [address] [place] [address], [facility] DTL [facility] 200 [place] [address] * Magnesium (08/22/2024 4:23 AM CDT) Magnesium, S 1.8 1.7 - 2.3 mg/dL 08/22/2024 5:44 AM CDT DTL Blood (Blood, Venous) 08/22/2024 4:23 AM CDT 08/22/2024 5:29 AM CDT Barrera Lewis M.D. LAB BLOOD ADD-O N Final Result [facility] [place] [address] [place] [address] * Phosphorus Inorganic (08/22/2024 4:23 AM CDT) [facility] Phosphorus (Inorganic), S 3.1 2.5 - 4.5 mg/dL 08/22/2024 5:44 AM CDT DTL Blood (Blood, Venous) 08/22/2024 4:23 AM CDT 08/22/2024 5:29 AM CDT Barrera Lewis M.D. LAB BLOOD ADD-O N Final Result Performing Organization Address City/[facility]/ZIP Co de Phone Number [facility] [place] [address] [place] [address] * (ABNORMAL) Hepatic Function Panel (08/22/2024 4:23 [...] M.D. LAB BLOOD ADD-O N Final Result [facility] [address] [facility] [address] [place] [address] * (ABNORMAL) CBC with Differential, Blood (08/22/2024 4:23 AM CDT) Pathologist [facility] Hemoglobin 12.9 11.6 - 15.0 g/dL 08/22/2024 [...] M.D. LAB BLOOD ADD-O N Final Result [facility] [place] [address] [place] [address], [facility] DTL [facility] [address] [place] [address] [facility] 200 [place] [address] * CT Abdomen Pelvis with IV Contrast [...] Chorionic Gonadotropin), Quantitative, (08/21/2024 6:47 PM CDT) Pathologist [facility] HCG, Quantitative, , P 1.0 <5 IU/L 08/21/2024 7:12 PM CDT [facility] Blood (Blood, Venous) 08/21/2024 6:47 PM CDT 08/21/2024 6:53 PM CDT Antonio Olivia M.D. LAB BLOOD ADD-ON Final Re sult Performing Organization Address [facility]/ZIP Co de Phone Number [facility] [place] 200 [place] [address], [facility] STMA [facility] [address] [place] [address] * Lactate for Sepsis with Reflex (08/21/2024 6:47 PM CDT) Pathologist [facility] Lactate, P 1.1 0.5 - 2.2 mmol/L 08/21/2024 7:07 PM CDT STMA Blood (Blood, Venous) 08/21/2024 6:47 PM CDT 08/21/2024 6:53 PM CDT Antonio lOivia M.D. LAB BLOOD NON ADD-ON Lupe l Result Performing Organization Address City/[facility]/ZIP Co de Phone Number [facility] [place] [address] [place] [address], [facility] STMA [facility] [address] [place] [address] * (ABNORMAL) CBC with Differential, Blood (08/21/2024 6:47 PM CDT) Hemoglobin 15.7(H) 11.6 - 15.0 g/dL 08/21/2024 [...] ADD-ON Final Re sult Performing Organization Address City/[facility]/ZIP Co de Phone Number [facility] [place] [address] [place] [address], [facility] STMA [facility] [address] [place] [address] DHPM [facility] [address] [place] [address] * (ABNORMAL) Lipase (08/21/2024 6:47 PM CDT) Lipase, S 10(L) 13 - 60 U/L 08/21/2024 7: 41 PM CDT DTL Blood (Blood, Venous) 08/21/2024 6:47 PM CDT 08/21/2024 7:16 PM CDT Antonio Olivia M.D. LAB BLOOD ADD-ON Final Re sult Performing Organization Address [facility] Co de Phone Number [facility] [place] [address] [place], [place] [id number] [place] [address] DTL [facility] [address] [place] [address] * (ABNORMAL) Hepatic Function Panel (08/21/2024 6:47 [...] M.D. LAB BLOOD ADD-ON Final Re sult [facility] [place] [address] [place] [address], [facility] [address] [place] [address] * (ABNORMAL) Basic Metabolic Panel (08/21/2024 6:47 [...] ADD-ON Final Re sult Performing Organization Address [facility] Co de Phone Number [facility] [place] [address] [place] [address], [place] STMA [facility] [address] [place] [address] * ECG 12 Lead (08/21/2024 6:44 PM CDT) Ventricular Rate ECG/Min 134 BPM MUSE VA Interval 136 ms MUSE QRSD Interval 80 ms MUSE QT Interval 272 ms MUSE QTC Interval 406 ms MUSE P [place] 69 degrees MUSE R [place] 228 degrees MUSE T Wave [place] 65 degrees MUSE 08/21/2024 6:44 PM CDT [...] Olivia M.D. 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 Chronic Pain Syndrome Nausea And [...] Given 08/24/2024 8:10 PM CDT 650 mg rtblqwzefqjeu-wlrqflrjva-ajzdgbnf in Lipoderm 2%-5%-5% cream 1 g 1 [...] doses Given 08/23/2024 9:07 AM CDT 25 mcg Given 08/23/2024 9:01 AM CDT 25 mcg [...] daily, First dose on Wed08/24/24 at 1245 Given 08/24/2024 5:42 PM CDT [...] AM CDT 1 patch Left Lower Abdomen yzdsnb-zkizcruw-czfpseo 12,000-38,000-60,[address] capsule 24,000 Units [...] Given 08/22/2024 9:36 PM CDT 15 mg aqckwkuxjuns-nasw-SK-Ca-minerals 400 mcg (folic acid) tablet 1 tablet [...] give total of 40 mEq Dissolve per gyn physician recommendations. Do NOT chew or swallow tablet., [...] Wed08/22/24 at 0900 1119 (Given - Provider: Joshua MendezSEric., R.N., C.M.S.R.N.)1713 (Given - Provider: Colleen M Schiller, M.S.N., R.N., C.M.S.R.N.)2109 (Given - Provider: Wenceslao Quiros [...] manually unheld 0900 (Not Given - Provider: Colleen White M.S.NSuma, R.NSuma, C.M.S.R.NSuma - Reason: See Provider Order) [...] (vitamin D3) tablet/capsule 1116 (Given - Provider: Colleen White M.S.NSuma, R.NSuma, C.M.S.R.NSuma) 0857 (Given - Provider: Jo Ann Gregorio [...] each administration. 0843 (Not Given - Provider: Joshua MendezS.NSuma, R.N., C.M.S.R.N. - Reason: Patient not available)1215 (Not Given - Provider: Joshua MendezS.NSuma, R.N., C.M.S.R.NSuma - Reason: Patient/family refused)1835 (Not Given - Provider: Joshua MendezS.NSuma, R.NSuma, C.M.S.R.N. - Reason: Patient/family refused)2014 (Not Given - Provider: Wenceslao Quiros R.N. - Reason: Order parameters not met) 09 (Not Given - Provider: Jo Ann Gregorio R.N. - Reason: Patient/family refused)1419 (Not Given - Provider: Jo Ann Gregorio R.N. - Reason: Patient/family refused)1701 (Not Given - Provider: Juan Murphy R.N. - Reason: Patient/family refused)2006 (Not Given [...] triamcinolone intranasal 1000 (Not Given - Provider: Joshua MendezSSumaNSuma, R.NSuma, Katrin.M.S.R.NSuma - Reason: Patient/family refused) 0903 (Given - [...] dose 0104 (Given - Provider: Wenceslao Quiros R.N.) HYDROmorphone tablet 2 mg (Dilaudid) (COMPLETED) [...] for pain? Yes 0955 (Given - Provider: Kindra Lenz R.N.) insulin aspart U-100 injection 0-9 Units [...] Insulin orders 0800 (Not Given - Provider: Colleen White M.S.NSuma, R.N., C.MSumaSSumaRSumaN. - Reason: Order parameters not met)1300 (Not Given - Provider: Colleencarlie White M.S.N., RGabby, AlexandroSSumaRSumaNSuma - Reason: See Provider Order)1823 (Given - Provider: Destiny Mendez, R.N., AlexandroS.R.NSuma) 0858 (Given - Provider: Jo Ann Gregorio [...] 1245 1419 (Given - Provider: Jo Ann C Vincetic, R.N.)1742 (Given - Provider: Andrew AguileraNSuma) insulin glargine injection 7 Units 7 Units, subcutaneous, 2 times daily, First dose on Wed08/22/24 at 0900 1120 (Given - Provider: Destiny Mendez, R.N., Katrin.M.S.R.N.)2220 (Given - Provider: Wenceslao Quiros R.N.) 0858 (Given - Provider: Jo Ann Gregorio R.N.)2213 (Given - Provider: Wenceslao Quiros R.N.) 0852 (Given - Provider: Andrew GonzalezNSuma) lidocaine 5 % 1 patch (Lidoderm) 1 patch, transdermal, Administer over 12 Hours, Daily, First dose on Wed08/21/24 at 2347, Apply to intact skin for a maximum of 12 hours in a 24-hour period. 0745 (Not Given - Provider: Destiny Mendez, R.NSuma, Katrin.M.S.R.N. - Reason: Patient/family refused) 0854 (Not Given - Provider: Ciara Long R.N. - Reason: Patient/family refused) 0849 (Medication Applied - Provider: Blossom Norman RGabby)2022 (Due: Medication Removed - Provider: Discharge Provider, Automatic - Comment: Time automatically adjusted from order being discontinued) unvfvz-ynxxomzk-zfdnnpy 12,000-38,000-60,[address] capsule 24,000 Units of lipase (Creon) 24,000 Units of lipase, oral, 3 times daily with meals, First dose on Wed08/22/24 at 0800, Do NOT crush or chew. Capsule may be opened and the contents taken without crushing or chewing. 0757 (Not Given - Provider: Rachele Mendez., R.N., C.M.S.R.N. - Reason: NPO)1223 (Given - Provider: Rachele Mendez., R.N., C.M.S.R.N.)1822 (Given - Provider: Elizabeth Mendez.S.N., R.N., AlexandroS.RSumaNSuma) 0857 (Given - Provider: Jo Ann Gregorio [...] 1 dose 1303 (New Bag - Provider: Elizabeth Mendez.S.N., R.N., Katrin.Elizabeth.S.R.NSuma) methylPREDNISolone sodium succinate 1,000 mg in NaCl [...] 2010 (Given - Provider: Wenceslao Quiros R.N.) mqlmurtqaaba-gvoz-UR-Ca- minerals 400 mcg (folic acid) tablet 1 tablet 1 tablet, oral, Daily, First dose on Wed08/22/24 at 0900 1116 (Given - Provider: Destiny Mendez, RSumaN., Katrin.JoshuaS.R.NSuma) 0857 (Given - Provider: Jo Ann Gregorio [...] tablet. 0627 (Given - Provider: Harshad Fontana R.N.) 0646 (Given - Provider: Wenceslao Quiros RGabby) 0443 (Given - Provider: Wenceslao Quiros R.N.) polyethylene glycol powder packet 17 g (Miralax) 17 g, oral, Daily, First dose on Wed08/22/24 at 0900, Dissolve in 240 mLs (8 ounces) of water prior to giving. Avoid mixing with starch-based thickened liquids. 0900 (Not Given - Provider: Joshua MendezSSumaNSuma, R.NSuma, Arian.S.R.N. - Reason: Patient/family refused) 0900 (Not Given [...] per: Standard Schedule 1711 (Given - Provider: Joshua MendezSGabby, R.N., Katrin.M.S.RSumaNSuma) predniSONE tablet 5 mg (Deltasone) 5 mg, oral, Daily, First dose on Wed08/22/24 at 0900, On hold since Wed08/24/2024 at 1605 until manually unheld 1116 (Given - Provider: Joshua MendezSGabby, R.N., C.M.S.R.N.) 0857 (Given - Provider: Jo Ann Gregorio R.N.)1605 (Held by provider - Provider: Celnea Rodriguez M.D., M.E. - Comment: .) 0900 (Not Given - Provider: Blossom Norman R.N. - Reason: See Provider Order)2223 (Unheld by provider - Provider: Discharge Provider, Automatic) pregabalin capsule 100 mg (Lyrica) (CANCELED) 100 mg, oral, 2 times daily, First dose on Wed08/22/24 at 0900 1116 (Given - Provider: Joshua MendezSGabby, RSumaNSuma, Arian.S.R.N.)2109 (Given - Provider: Wenceslao Quiros R.N.) 0857 [...] Do not give if patient has diarrhea. 0900 (Not Given - Provider: Joshua MendezSSumaDaniele, R.NSuma, C.M.S.R.NSuma - Reason: Patient/family refused)2014 (Not Given - Provider: Wenceslao Quiros R.N. - Reason: Patient/family refused) 0857 (Not Given - Provider: Jo Ann Gregorio R.N. - Reason: Patient/family refused)2007 (Not Given - Provider: Wenceslao Quirso R.N. - Reason: Patient/family refused) 0845 (Given - Provider: Blossom Norman R.N.) sodium chloride 0.9 % injection 3 mL 3 mL, intravenous, Every 12 hours scheduled, First dose on Wed08/21/24 at 2100, Peripheral Intravenous Catheter and Rapid Infusion Catheter, when no infusion to maintain patency 1120 (Given - Provider: Joshua MendezSSumaNSuma, R.NSuma, Katrin.M.S.R.NSuma)2110 (Given - Provider: Wenceslao Quiros R.N.) 0900 (Given - Provider: Jo Ann Gregorio R.N.)2007 [...] liver transplant rejection 1223 (Given - Provider: Elizabeth Mendez.S.NSuma, R.N., C.M.S.R.NSuma) 0857 (Given - Provider: Jo Ann Gregorio [...] 0015 1116 (Given - Provider: Colleen White, M.S.NSuma, R.N., C.M.S.R.N.) 0856 (Given - Provider: Jo [...] 1328 2110 (Given - Provider: Wenceslao Quiros R.N.) 0917 (Given - Provider: Jo Ann Gregorio R.N.)2010 (Given - Provider: Wenceslao Quiros RSumaN.) bisacodyL suppository 10 mg (Dulcolax) 10 mg, [...] doses 0901 (Given - Provider: Tc Haro R.N.)0907 (Given - Provider: Tc Haro R.N.) fentaNYL [...] patient on hydromorphone chronically for pain? Yes 0427 (Given - Provider: Harshad Fontana RSumaN.) HYDROmorphone tablet 2 mg (Dilaudid)(Linked Group 3) [...] patient on hydromorphone chronically for pain? Yes 1512 (Given - Provider: Hectro Gunderson RSumaN.)2109 (Given - Provider: Wenceslao Quiros R.N.) 0316 (Given - Provider: Wenceslao Quiros R.N.)0857 (Given - Provider: Jo Ann Gregorio R.N.)1423 (Given - Provider: Jo Ann Gregorio R.N.)1933 (Given - Provider: Juan Murphy R.N.) 0442 (Given - Provider: Wenceslao Quiros R.N.)1047 (Given - Provider: Blossom Norman R.N.)1648 (Given - Provider: Blossom Norman R.N.) metoclopramide injection 10 mg (Reglan) (CANCELED) 10 mg, intravenous, Every 12 hours PRN, nausea, vomiting, Starting on Wed08/21/24 at 2350 1119 (Given - Provider: Colleen M Schiller, M.S.N., R.N., C.M.S.R.N.) 1932 (Given - Provider: Juan Murphy RGabby) midazolam (PF) injection 0.5 mg (Versed) (CANCELED) [...] 2342 0332 (Given - Provider: Wenceslao Quiros RSumaN.)0856 (Given - Provider: Jo Ann Gregorio R.N.)1424 (Given - Provider: Jo Ann Gregorio R.N.) 0839 (Given - Provider: Blossom Norman R.N.) [...] documented as of this encounter Care Teams Unix Engineer Relationship Specialty Start Date End Date Ana Red MPAS, P.A.-C. [address] [place] [phone] PCP - General Internal Medicine 12/01/21 [facility] [place] [facility] 08/25/21 documented as of this encounter
--- OUTSIDE RECORDS SUMMARY | 2024-09-14 01:30 | XMS_ITS | Encounter Summary ---
Author Organization [facility] Address [address] [place] [address] Care Team Providers Care Dumper Mold Cleaner Name Role Phone Ana Red P.A.-C. Primary Care Pro vider Reason for Referral * Transplant (Routine) - Closed Specialty Diagnoses / Procedures Referred By Meir lara Referred To Contact Transplant Diagnoses Transplant Liver (HCC) Medication Therapy [facility] Not 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 Xu Joel Jr., M.D. [address] [place] [phone] Phone: tel: fax: [facility] Referral ID Status Reason Start Date Expiration Date Visits Re quested Visits Authorized [id number] Closed 08/25/2024 02/24/2026 1 1 Encounter Details Date Type Department Care Team (Latest Contact Info) Description 08/25/2024 [facility] in [place], [place] [address] [place] [phone] Sony Carty R.N. [address] [place] [phone] Transplant Liver (HCC) (Primary Dx); Medication Therapy [facility] Not 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 Social History Tobacco Use Types Packs/Day Years Used Date Smoking Tobacco: Former Cigarettes 1 - 10/12/2021 Passive Smoke Exposure: Never Smokeless Tobacco: Never Comments:Smoked cigarettes f rom age 18-30 about Alcohol Use Standard Drinks/Week Comments Never 0 (1 standard drink = 0.6 oz pure alcohol) Havent had any alcohol in about a year or so. [facility] Answer Date Recorded In the past 12 months has e [employer], gas, oil, or water [employer] threatened to shut off services in your [...] week 02/10/2022 How often do you attend [facility] or sabianist services? Patient declined 02/10/2022 Do [...] Date Recorded PHQ-2 Score 0 08/11/2024 [facility] [place] of Occupat ional Health - Occupational Stress [...] Sex Assigned at Female 04/12/2021 7:39 PM EQUIPMENT COORDINATOR Legal Sex Female 7:53 PM EQUIPMENT COORDINATOR Gender Identity Female 04/12/2021 7:39 PM EQUIPMENT COORDINATOR Sexual Orientation Straight 04/12/2021 7: 39 PM EQUIPMENT COORDINATOR documented as of this encounter Plan of Treatment Upcoming Encounters Date Type Department Care Team (Latest Contact Info) Description 09/14/2024 11:00 AM CDT Appointment Department of Radiology, [facility] in [place], [place] [address] [place] [phone] Noreen Ansari P.A.-C., M.S. [address] [place] [phone] Jesus Figueroa M.D. [address] [place] [phone] 09/14/2024 4:00 PM CDT Telemedicine Division of Pulmonary Medicine in [place], [place] [address] [place] [phone] Ben Dickson, YARITZA, C.N.P. [address] [place] [phone] 09/15/2024 8:00 AM CDT Lab Department of Laboratory Medicine and Pathology, [facility] in [place], [place] [address] [place] [phone] Edgar [facility] M.B.B.S., M.S. [address] [place] [phone] 09/15/2024 10:00 AM CDT Comprehensive Visit Ramirez Landon diaz [facility] for Transplantation and Clinical Regeneration in [place], [place] [address] [place] [phone] Edgar [facility] M.B.B.S., M.S. [address] [place] [phone] Miriam Strickland M.D. [address] [place] [phone] 09/15/2024 11:00 AM CDT Office Visit Ramirez diaz [facility] in [place], [place] [address] [place] [address] Edgar [facility] M.B.B.S., M.S. [address] [place] [phone] Discharge Disposition: Home or Self Care 09/15/2024 1:45 PM CDT Infusion Department of Infusion Therapy in [place], [place] [address] [place] [address] Juan Pete M.D. [address] [place] [phone] 09/18/2024 2:15 PM CDT Hospital Encounter Department of Radiology, [facility] in [place], [place] [address] [place] [address] Edgar Montgomery M.B.B.S., M.S. [address] [place] [phone] 09/20/2024 3:00 PM CDT [facility] in [place], [place] [address] [place] [address] Catia Quintana APRN, C.N.P. [address] [place] [phone] 10/03/2024 9:00 AM CDT Appointment Department of Radiology, [facility] in [place], [place] [address] [place] [address] Marisabel Carpenter APRN, C.N.PSuma, D.N.P. [address] [place] [phone] 10/05/2024 12:00 PM CDT Appointment Division of Pulmonary Medicine in [place], [place] [address] [place] [address] Edgar Montgomery M.B.B.S., M.S. [address] [place] [phone] 10/10/2024 7:50 AM CDT Lab Department of Laboratory Medicine and Pathology, [facility] in [place], [place] [address] [place] [phone] Marisabel Carpenter APRN, C.N.PSuma, D.N.P. [address] [place] [phone] 10/10/2024 8:00 AM CDT Lab Department of Laboratory Medicine and Pathology, [facility] in [place], [place] [address] [place] [phone] Marisabel Carpenter APRN, C.N.P., D.N.P. [address] [place] [phone] 10/10/2024 8:30 AM CDT Nurse Only Ramirez diaz [facility] Clinical [facility] in [place], [place] [address] [place] [address] Marisabel Carpenter APRN, C.N.PSuma, D.N.P. [address] [place] [phone] 10/10/2024 9:20 AM CDT Appointment Department of Radiology, [facility] in [place], [place] [address] [place] [address] Marisabel Carpenter APRN, C.N.P., D.N.P. [address] [place] [phone] 10/10/2024 9:45 AM CDT Appointment Department of Laboratory Medicine and Pathology, [facility] in [place], [place] [address] [place] [phone] Marisabel Carpenter APRN, C.N.PSuma, D.N.P. [address] [place] [phone] 10/10/2024 1:30 PM CDT Appointment Department of Radiology, [facility] in [place], [place] [address] [place] [phone] Marisabel Carpenter APRN, C.N.P., D.N.P. [address] [place] [phone] 10/10/2024 2:45 PM CDT Appointment Department of Radiology, [facility] in [place], [place] [address] [place] [address] Marisabel Carpenter APRN, C.N.P., D.N.P. [address] [place] [phone] 10/11/2024 8:00 AM CDT [facility] in [place], [place] [address] [place] [address] Marisabel Carpenter APRN, C.N.P., D.N.P. [address] [place] [phone] 10/11/2024 11:00 AM CDT Comprehensive Visit [facility] in [place], [place] [address] [place] [phone] Sree Devlin M.D. [address] [place] [phone] 10/11/2024 1:00 PM CDT Comprehensive Visit Department of Otorhinolaryngology in [place], [place] [address] [place] [address] Randal Urbano P.A.-Katrin., M.S. [address] [place] [phone] 10/11/2024 2:00 PM CDT Office Visit [facility] in [place], [place] [address] [place] [address] Hiro Murillo P.A.-C. [address] [place] [phone] 10/11/2024 4:00 PM CDT Comprehensive Visit Department of Dermatology in [place], [place] [address] [place] [address] Parul Martinez M.D. [address] [place] [phone] 10/12/2024 8:00 AM CDT Telemedicine [facility] Transplantation and Clinical Regeneration in [place], [place] [address] [place] [phone] Ervin Mckeon D.O. [address] [place] [phone] 11/01/2024 2:15 PM CDT Appointment Division of Pulmonary Medicine in [place], [place] [address] [place] [address] Edgar Montgomery M.B.B.S., M.S. [address] [place] [address] Scheduled Referrals Name Type Priority Associated Diagnoses Orde r Schedule Transplant Liver office visit (clinic) Outpatient Referral Routine Transplant Liver (HCC) Medication Therapy [facility] Not 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 Expected: 09/01/2024, Expires: 11/24/2025 documented as of this encounter Visit Diagnoses Diagnosis Transplant Liver (HCC)- Primary Medication Therapy [facility] Not 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 documented in this encounter Additional Health Concerns Infection Onset Date Last Indicated Resolved Time Protective Environment 10/10/2022 10/10/2022 Assessment Noted Time PHQ-9 Depression Total Score: 4 08/12/19 25 3:31 PM CDT documented as of this encounter Care Teams Dumper Mold Cleaner Relationship Specialty Start Date End Date Ana Red MPAS, P.A.-C. [address] [place] [phone] PCP - General Internal Medicine 12/01/21 [facility] [place] [facility] 08/25/21 documented as of this encounter
--- OUTSIDE RECORDS SUMMARY | 2024-09-14 01:30 | XMS_ITS | Encounter Summary ---
Author Organization [facility] Address [address] [place] [address] Care Team Providers Care Sanitation Officer Name Role Phone Ana Red P.A.-C. Primary Care Pro vider Encounter Details Date Type Department Care Team (Late st Contact Info) Description 08/25/2024 Orders Only Ramirez diaz [facility] Transplantation and Clinical Regeneration in [place], [place] [address] [place] [phone] Xu Joel Jr., M.D. [address] [place] [phone] Rejection Graft Acute (Primary Dx) Social History Tobacco Use Types Packs/Day Years Used Date Smoking Tobacco: Former Cigarettes 1 - 10/12/2021 Passive Smoke Exposure: Never Smokeless Tobacco: Never Comments:Smoked cigarettes f rom age 18-30 about Alcohol Use Standard Drinks/Week Comments Never 0 (1 standard drink = 0.6 oz pure alcohol) Havent had any alcohol in about a year or so. [facility] Utilities Answer Date Recorded In the past [...] How often do you attend chur or methodist services? Patient declined 02/10/2022 Do you belong [...] Answer Date Recorded PHQ-2 Score 0 08/11/2024 [facility] - Occupational Stress [...] living situation today? I have a [facility] place to live 09/09/2024 Education Answer Date Recorded What is the highest level of school you have completed or the highest degree you have received? Associate degree: occupational, technical, or vocational program 07/16/2021 Comments No Sex and Gender Information Value Date Recorded Sex Assigned at Female 04/12/2021 7:39 PM COMPUTATIONAL SCIENCES PROFESSOR Legal Sex Female 7:53 PM COMPUTATIONAL SCIENCES PROFESSOR Gender Identity Female 04/12/2021 7:39 PM COMPUTATIONAL SCIENCES PROFESSOR Sexual Orientation Straight 04/12/2021 7: 39 PM COMPUTATIONAL SCIENCES PROFESSOR documented as of this encounter Plan of Treatment Upcoming Encounters Date Type Department Care Team (Latest Contact Info) Description 09/14/2024 11:00 AM CDT Appointment Department of Radiology, [facility], in [place], [place] [address] [place] [address] EalnNoreen hanson P.A.-C., M.S. [address] [place] [address] Jesus Figueroa M.D. [address] [place] [phone] 09/14/2024 4:00 PM CDT Telemedicine Division of Pulmonary Medicine in [place], [place] [address] [place] [address] Ben Dickson APRN, C.N.P. [address] [place] [phone] 09/15/2024 8:00 AM CDT Lab Department of Laboratory Medicine and Pathology, [facility], in [place], [place] [address] [place] [address] Edgar Montgomery M.B.B.S., M.S. [address] [place] [phone] 09/15/2024 10:00 AM CDT Comprehensive Visit Ramirez Landon [facility] for Transplantation and Clinical Regeneration in [place], [place] [address] [place] [address] Edgar Montgomery M.B.B.S., M.S. [address] [place] [phone] Miriam Strickland M.D. [address] [place] [phone] 09/15/2024 11:00 AM CDT Office Visit Ramirez Navarrete [facility] for Transplantation and Clinical Regeneration in [place], [place] [address] [place] [address] Edgar Montgomery M.B.B.S., M.S. [address] [place] [phone] Discharge Disposition: Home or Self Care 09/15/2024 1:45 PM CDT Infusion Department of Infusion Therapy in [place], [place] [address] [place] [address] Juan Pete M.D. [address] [place] [phone] 09/18/2024 2:15 PM CDT Hospital Encounter Department of Radiology, [facility] in [place], [place] [address] [place] [address] Edgar Montgomery M.B.B.S., M.S. [address] [place] [phone] 09/20/2024 3:00 PM CDT Comprehensive Visit [facility] in [place], [place] [address] [place] [phone] Catia Quintana APRN, C.N.P. [address] [place] [phone] 10/03/2024 9:00 AM CDT Appointment Department of Radiology, [facility], in [place], [place] [address] [place] [address] Marisabel Carpenter APRN, C.N.P., D.N.P. [address] [place] [phone] 10/05/2024 12:00 PM CDT Appointment Division of Pulmonary Medicine in [place], [place] [address] [place] [address] Edgar Montgomery M.B.B.S., M.S. [address] [place] [phone] 10/10/2024 7:50 AM CDT Lab Department of Laboratory Medicine and Pathology, [facility] in [place], [place] [address] [place] [address] Marisabel Carpenter APRN, C.N.P., D.N.P. [address] [place] [phone] 10/10/2024 8:00 AM CDT Lab Department of Laboratory Medicine and Pathology, [facility] in [place], [place] [address] [place] [address] Marisabel Carpenter APRN, C.N.P., D.N.P. [address] [place] [phone] 10/10/2024 8:30 AM CDT Nurse Only Ramirez diaz [facility] for Transplantation and Clinical Regeneration in [place], [place] [address] [place] [address] Marisabel Carpenter APRN, C.N.P., D.N.P. [address] [place] [phone] 10/10/2024 9:20 AM CDT Appointment Department of Radiology, [facility] in [place], [place] [address] [place] [address] Marisabel Carpenter APRN, C.N.P., D.N.P. [address] [place] [phone] 10/10/2024 9:45 AM CDT Appointment Department of Laboratory Medicine and Pathology, [facility] in [place], [place] [address] [place] [address] Marisabel Carpenter APRN, C.N.P., D.N.P. [address] [place] [address] 10/10/2024 1:30 PM CDT Appointment Department of Radiology, [facility] in [place], [place] [address] [place] [address] Marisabel Carpenter APRN C.N.PSuma, D.N.P. [address] [place] [phone] 10/10/2024 2:45 PM CDT Appointment Department of Radiology, [facility] in [place], [place] [address] [place] [address] Marisabel Carpenter APRN, C.N.PSuma, D.N.P. [address] [place] [phone] 10/11/2024 8:00 AM CDT Office Visit [facility] Clinical Regeneration in [place], [place] [address] [place] [address] Marisabel Carpenter APRN, C.N.PSuma, D.N.P. [address] [place] [phone] 10/11/2024 11:00 AM CDT Comprehensive Visit [facility] in [place], [place] [address] [place] [address] Sree Devlin M.D. [address] [place] [phone] 10/11/2024 1:00 PM CDT Comprehensive Visit Department of Otorhinolaryngology in [place], [place] [address] [place] [address] Randal Urbano P.A.-C., M.S. [address] [place] [phone] 10/11/2024 2:00 PM CDT Office Visit [facility] Transplantation and Clinical Regeneration in [place], [place] [address] [place] [phone] Hiro Murillo P.A.-C. [address] [place] [phone] 10/11/2024 4:00 PM CDT Comprehensive Visit Department of Dermatology in [place], [place] [address] [place] [phone] Parul Martinez M.D. [address] [place] [phone] 10/12/2024 8:00 AM CDT Telemedicine [facility] Transplantation and Clinical Regeneration in [place], [place] [address] [place] [phone] Ervin Mckeon D.O. [address] [place] [phone] 11/01/2024 2:15 PM CDT Appointment Division of Pulmonary Medicine in [place], [place] [address] [place] [phone] Edgar Montgomery M.B.BSumaS., M.S. [address] [place] [phone] documented as of this encounter Visit Diagnoses Diagnosis Rejection Graft Acute- Primary documented in this encounter Additional Health Concerns Infection Onset Date Last Indicated Resolved Time Protective Environment 10/10/2022 10/10/2022 Assessment Noted Time PHQ-9 Depression Total Score: 4 08/12/19 25 3:31 PM CDT documented as of this encounter Care Teams Sanitation Officer Relationship Specialty Start Date End Date Ana Red MPAS, P.Silvano.Jordan. [address] [facility] ADI Chua [phone] PCP - General Internal Medicine 12/01/21 [facility] [place] [facility] 08/25/21 documented as of this encounter
--- OUTSIDE RECORDS SUMMARY | 2024-09-14 01:30 | XMS_ITS | Encounter Summary ---
Author Organization [facility] Address [address] [place] [address] Care Team Providers Care Wallpaper Remover Steam Name Role Phone Ana Red P.A.-C. Primary Care Pro vider Encounter Details Date Type Department Care Team (Late st Contact Info) Description 08/18/2024 Patient Self-Triage CONNECTED CARE Symptom Mica Splitter, Provider Social History Tobacco Use Types Packs/Day Years Used Date Smoking Tobacco: Former Cigarettes 1 - 10/12/2021 Passive Smoke Exposure: Never Smokeless Tobacco: Never Comments:Smoked cigarettes f rom age 18-30 about Alcohol Use Standard Drinks/Week Comments Never 0 (1 standard drink = 0.6 oz pure alcohol) Havent had any alcohol in about a year or so. [facility] Utilities Answer Date Recorded In the past 12 months has [employer], oil, or water [employer] threatened to shut off services in your [...] How often do you attend chur or baptism services? Patient declined 02/10/2022 Do you belong to any clubs o r organizations such as anabaptism groups, unions, fraternal [...] a [facility] place to live 07/25/2024 Education Answer Date Recorded What is the highest level of school you have completed or the highest degree you have received? Associate degree: occupational, technical, or vocational program 07/16/2021 Comments No Sex and Gender Information Value Date Recorded Sex Assigned at Female 04/12/2021 7:39 PM GENERAL MANAGER LAND DEPARTMENT Legal Sex Female 7:53 PM GENERAL MANAGER LAND DEPARTMENT Gender Identity Female 04/12/2021 7:39 PM GENERAL MANAGER LAND DEPARTMENT Sexual Orientation Straight 04/12/2021 7: 39 PM GENERAL MANAGER LAND DEPARTMENT documented as of this encounter Plan of Treatment Upcoming Encounters Date Type Department Care Team (Latest Contact Info) Description 09/14/2024 11:00 AM CDT Appointment Department of Radiology, [facility], in [place], [place] [address] [place] [phone] Noreen Ansari, Christo.-Katrin., M.S. 200 [place] [phone] Jesus Figueroa M.D. 200 [place] [phone] 09/14/2024 4:00 PM CDT Telemedicine Division of Pulmonary Medicine in [place], [place] [address] [place] [phone] Ben Dickson APRN, CSumaN.P. [address] [place] [phone] 09/15/2024 8:00 AM CDT Lab Department of Laboratory Medicine and Pathology, [facility] in [place], [place] [address] [place] [address] Edgar Montgomery M.Karan.B.S., M.S. [address] [place] [phone] 09/15/2024 10:00 AM CDT Comprehensive [facility] in [place], [place] [address] [place] [phone] Edgar Montgomery M.B.B.S., M.S. [address] [place] [phone] Miriam Strickland M.D. [address] [place] [phone] 09/15/2024 11:00 AM CDT Office Visit [facility] for Transplantation and Clinical Regeneration in [place], [place] [address] [place] [phone] Edgar Montgomery M.B.B.S., M.S. [address] [place] [phone] Discharge Disposition: Home or Self Care 09/15/2024 1:45 PM CDT Infusion Department of Infusion Therapy in [place], [place] [address] [place] [address] Juan Pete M.D. [address] [place] [address] 09/18/2024 2:15 PM CDT Hospital Encounter Department of Radiology, [facility], in [place], [place] [address] [place] [address] Edgar Montgomery M.B.B.S., M.S. [address] [place] [address] 09/20/2024 3:00 PM CDT Comprehensive Visit [facility] in [place], [place] [address] [place] [address] Catia Quintana APRN, C.N.P. [address] [place] [phone] 10/03/2024 9:00 AM CDT Appointment Department of Radiology, [facility], in [place], [place] [address] [place] [address] Marisabel Carpenter APRN, C.N.P., D.N.P. [address] [place] [phone] 10/05/2024 12:00 PM CDT Appointment Division of Pulmonary Medicine in [place], [place] [address] [place] [address] Edgar Montgomery M.B.B.S., M.S. [address] [place] [phone] 10/10/2024 7:50 AM CDT Lab Department of Laboratory Medicine and Pathology, [facility], in [place], [place] [address] [place] [address] Marisabel Carpenter APRN, C.N.P., D.N.P. [address] [place] [address] 10/10/2024 8:00 AM CDT Lab Department of Laboratory Medicine and Pathology, [place], [place] [address] [place] [address] Marisabel Carpenter APRN, C.N.P., D.N.P. [address] [place] [phone] 10/10/2024 8:30 AM CDT Nurse Only [facility] in [place], [place] [address] [place] [phone] Marisabel Carpenter APRN, C.N.PSuma, D.N.P. [address] [place] [phone] 10/10/2024 9:20 AM CDT Appointment Department of Radiology, [facility] in [place], [place] [address] [place] [address] Marisabel Carpenter APRN, C.N.P., D.N.P. [address] [place] [phone] 10/10/2024 9:45 AM CDT Appointment [place] [address] [place] [address] Marisabel Carpenter APRN, C.N.P., D.N.P. [address] [place] [phone] 10/10/2024 1:30 PM CDT Appointment Department of Radiology, [facility] in [place], [place] [address] [place] [address] Marisabel Carpenter APRN C.N.PSuma, D.N.P. [address] [place] [phone] 10/10/2024 2:45 PM CDT Appointment Department of Radiology, [facility], in [place], [place] [address] [place] [address] Marisabel Carpenter APRN C.N.PSuma, D.N.P. [address] [place] [phone] 10/11/2024 8:00 AM CDT Office Visit [facility] for Transplantation and Clinical Regeneration in [place], [place] [address] [place] [address] Marisabel Carpenter APRN, C.N.P., D.N.P. [address] [place] [phone] 10/11/2024 11:00 AM CDT Comprehensive Visit [facility] for Transplantation and Clinical Regeneration in [place], [place] [address] [place] [address] Sree Devlin M.D. [address] [place] [phone] 10/11/2024 1:00 PM CDT Comprehensive Visit Department of Otorhinolaryngology in [place], [place] [address] [place] [address] Randal Urbano, P.A.-C., M.S. [address] [place] [phone] 10/11/2024 2:00 PM CDT Office Visit [facility] for Transplantation and Clinical Regeneration in [place], [place] [address] [place] [address] Hiro Murillo P.A.-C. [address] [place] [phone] 10/11/2024 4:00 PM CDT Comprehensive Visit Department of Dermatology in [place], [place] [address] [place] [phone] Parul Martinez M.D. [address] [place] [phone] 10/12/2024 8:00 AM CDT Telemedicine [facility] for Transplantation and Clinical Regeneration in [place], [place] [address] [place] [phone] Ervin Mckeon D.O. [address] [place] [phone] 11/01/2024 2:15 PM CDT Appointment Division of Pulmonary Medicine in [place], [place] [address] [place] [phone] Edgar Montgomery M.B.B.S., M.S. [address] [place] [phone] documented as of this encounter Visit Diagnoses Not on filedocumented in this encounter Additional Health Concerns Infection Onset Date Last Indicated Resolved Time Protective Environment 10/10/2022 10/10/2022 Assessment Noted Time PHQ-9 Depression Total Score: 4 08/12/19 25 3:31 PM CDT documented as of this encounter Care Teams Wallpaper Remover Steam Relationship Specialty Start Date End Date Ana Red MPAS, PToo. [address] [place] [address] [place] [address] PCP - General Internal Medicine 12/01/21 [facility] [place] [facility] 08/25/21 documented as of this encounter
--- OUTSIDE RECORDS SUMMARY | 2024-09-14 01:30 | XMS_ITS | Encounter Summary ---
Author Organization [facility] Address [address] [place] [id number] Care Team Providers Care Custodial Operations Manager Name Role Phone Ana Red P.A.-C. Primary Care Pro vider Encounter Details Date Type Department Care Team (Late st Contact Info) Description 08/19/2024 Documentation [facility] Clinical Regeneration in [place], [place] [address] [place] [phone] Gerard King M.D. [address] [place] [phone] Social History Tobacco Use Types Packs/Day Years Used Date Smoking Tobacco: Former Cigarettes 1 - 10/12/2021 Passive Smoke Exposure: Never Smokeless Tobacco: Never Comments:Smoked cigarettes f rom age 18-30 about Alcohol Use Standard Drinks/Week Comments Never 0 (1 standard drink = 0.6 oz pure alcohol) Havent had any alcohol in about a year or so. [facility] Utilities Answer Date Recorded In the past 12 months has e [employer], gas, oil, or water [employer] threatened to shut off services in your [...] Answer Date Recorded PHQ-2 Score 0 08/11/2024 [facility] [place] [facility] Occupat ional Health - Occupational Stress [...] your living situation today? I have a [facility] place to live 07/25/2024 Education Answer Date Recorded What is the highest level of school you have completed or the highest degree you have received? Associate degree: occupational, technical, or vocational program 07/16/2021 Comments No Sex and Gender Information Value Date Recorded Sex Assigned at Female 04/12/2021 7:39 PM TECHNICAL SUPPORT 1 SOFTWARE ENGINEER Legal Sex Female 7:53 PM TECHNICAL SUPPORT 1 SOFTWARE ENGINEER Gender Identity Female 04/12/2021 7:39 PM TECHNICAL SUPPORT 1 SOFTWARE ENGINEER Sexual Orientation Straight 04/12/2021 7: 39 PM TECHNICAL SUPPORT 1 SOFTWARE ENGINEER documented as of this encounter Progress Notes * Gerard King M.D. - 08/19/2024 8:15 AM CDT Liver Transplant Plan Nurse Note I received a call from the emergency regarding Ms. Brunson. 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 Course was initially complicated by hepatic artery stenosis requiring stent placement in December 2023 and prior episodes of steroid responsive rejection. This occurred last on April 28, 2024, which was treated with Solu-Medrol. Additionally, she has had longstanding chronic abdominal pain, nausea, and vomiting. Shewas transitioned to sublingual tacrolimus due to continued problems with nausea and vomiting. She reported to the emergency department due to left-sided abdominal pain. Additionally, she reported nausea and vomiting with inability to take tacrolimus. She estimated it had been about 1 week since she had last taken her tacrolimus effectively. Labs were notable for total bilirubin 1.2, ALT 223, AST 133, alkaline phosphatase 275. I did speak with Ms. Brunson by phone and emphasized the priorplan regarding antinausea medication 30 minutes prior to sublingual tacrolimus. It does not sound as though she has been using the antinausea medications or taking the tacrolimus as prescribed. I have reiterated the importance of taking sublingual tacrolimus as prescribed. I discussed with the emergency department that if she needs admission for pain management or management of nausea and vomiting, it would be reasonable for her to be hospitalized on an internal medicine service. For the current elevation in liver tests, we can likely continue to manage as an outpatient with improved compliance with tacrolimus. I will reach out to her regional coordinator to arrange for repeat labs and tacrolimus trough level early next week. If labs continue to be elevated, wecan arrange for outpatient corticosteroids. Discussed with Dr. Byrnes who is in agreement. documented in this encounter Plan of Treatment Upcoming Encounters Date Type Department Care Team (Latest Contact Info) Description 09/14/2024 11:00 AM CDT Appointment Department of Radiology, [facility], in [place], [place] [address] [place] [phone] Noreen Ansari P.A.-C., M.S. [address] [place] [phone] Jesus Figueroa M.D. [address] [place] [phone] 09/14/2024 4:00 PM CDT Telemedicine Division of Pulmonary Medicine in [place], [place] [address] [place] [phone] Ben Dickson APRN, CSumaN.P. [address] [place] [phone] 09/15/2024 8:00 AM CDT Lab Department of Laboratory Medicine and Pathology, [facility] in [place], [place] [address] [place] [address] Edgar Montgomery M.B.B.S., M.S. [address] [place] [phone] 09/15/2024 10:00 AM CDT [facility] in [place], [place] [address] [place] [phone] Edgar Montgomery M.B.B.S., M.S. [address] [place] [phone] Miriam Strickland M.D. [address] [place] [phone] 09/15/2024 11:00 AM CDT Office Visit [facility] in [place], [place] [address] [phone] Edgar Montgomery M.B.B.S., M.S. [address] [place] [phone] Discharge Disposition: Home or Self Care 09/15/2024 1:45 PM CDT Infusion Department of Infusion Therapy in [place], [place] [address] [place] [address] Juan Pete M.D. [address] [place] [phone] 09/18/2024 2:15 PM CDT Hospital Encounter Department of Radiology, [facility] in [place], [place] [address] [place] [address] Edgar Montgomery M.B.B.S., M.S. [address] [place] [phone] 09/20/2024 3:00 PM CDT Comprehensive Visit [facility] in [place], [place] [address] [place] [address] Catia Quintana APRN, C.N.P. [address] [place] [phone] 10/03/2024 9:00 AM CDT Appointment Department of Radiology, [facility], in [place], [place] [address] [place] [address] Marisabel Carpenter APRN, C.N.P., D.N.P. [address] [place] [phone] 10/05/2024 12:00 PM CDT Appointment Division of Pulmonary Medicine in [place], [place] [address] [place] [address] Edgar Montgomery M.B.B.S., M.S. [address] [place] [phone] 10/10/2024 7:50 AM CDT Lab Department of Laboratory Medicine and Pathology, [facility], in [place], [place] [address] [place] [address] Marisabel Carpenter APRN, C.N.PSuma, D.N.P. [address] [place] [address] 10/10/2024 8:00 AM CDT Lab Department of Laboratory Medicine and Pathology, [facility] in [place], [place] [address] [place] [address] Marisabel Carpenter APRN, C.N.PSuma, D.N.P. [address] [place] [phone] 10/10/2024 8:30 AM CDT Nurse Only [facility] in [place], [place] [address] [place] [address] Marisabel Carpenter APRN, Katrin.N.PSuma, D.N.P. [address] [place] [phone] 10/10/2024 9:20 AM CDT Appointment Department of Radiology, [facility] in [place], [place] [address] [place] [address] Marisabel Carpenter APRN, C.N.PSuma, D.N.P. [address] [place] [phone] 10/10/2024 9:45 AM CDT Appointment Department of Laboratory Medicine and Pathology, [facility] in [place], [place] [address] [place] [address] Marisabel Carpenter APRN, C.N.P., D.N.P. [address] [place] [phone] 10/10/2024 1:30 PM CDT Appointment Department of Radiology, [facility] in [place], [place] [address] [place] [address] Marisabel Carpenter APRN, C.N.P., D.N.P. [address] [place] [phone] 10/10/2024 2:45 PM CDT Appointment Department of Radiology, [facility], in [place], [place] [address] [place] [address] Marisabel Carpenter APRN C.N.PSuma, D.N.P. [address] [place] [phone] 10/11/2024 8:00 AM CDT Office Visit [facility] in [place], [place] [address] [place] [address] Marisabel Carpenter APRN, C.N.P., D.N.P. [address] [place] [phone] 10/11/2024 11:00 AM CDT Comprehensive Visit [facility] in [place], [place] [address] [place] [address] Sree Devlin M.D. [address] [place] [phone] 10/11/2024 1:00 PM CDT Comprehensive Visit Department of Otorhinolaryngology in [place], [place] [address] [place] [address] Randal Urbano P.A.-C., M.S. [address] [place] [phone] 10/11/2024 2:00 PM CDT Office Visit [facility] in [place], [place] [address] [place] [address] Hiro Murillo P.A.-C. [address] [place] [phone] 10/11/2024 4:00 PM CDT Comprehensive Visit Department of Dermatology in [place], [place] [address] [place] [address] Parul Martinez M.D. [address] [place] [phone] 10/12/2024 8:00 AM CDT Telemedicine [facility] in [place], [place] [address] [place] [phone] Ervin Mckeon D.O. [address] [place] [phone] 11/01/2024 2:15 PM CDT Appointment Division of Pulmonary Medicine in [place], [place] [address] [place] [phone] Edgar Montgomery M.B.B.S., M.S. [address] [place] [phone] documented as of this encounter Visit Diagnoses Not on filedocumented in this encounter Additional Health Concerns Infection Onset Date Last Indicated Resolved Time Protective Environment 10/10/2022 10/10/2022 Assessment Noted Time PHQ-9 Depression Total Score: 4 08/12/19 25 3:31 PM CDT documented as of this encounter Care Teams Custodial Operations Manager Relationship Specialty Start Date End Date Ana Red MPAS, P.A.-C. [address] [place], [place] [address] [phone] PCP - General Internal Medicine 12/01/21 [facility] 08/25/21 documented as of this encounter
--- OUTSIDE RECORDS SUMMARY | 2024-09-14 01:30 | XMS_ITS | Encounter Summary ---
Author Organization [facility] Address [address] [place] [id number] Care Team Providers Care Die Caster Name Role Phone Ana Red P.A.-C. Primary Care Pro vider Reason for Visit * Reason Comments Abdominal Pain Flank Pain Left Side Encounter Details Date Type Department Care Team (Late st Contact Info) Description 08/19/2024 4:53 AM CDT - 08/19/2024 8:23 AM CDT Emergency [facility] Emergency Department [address] [place] [phone] Lopez Rodrigues M.D., M.B.A. [address] [place] [phone] Abdominal Pain (Primary Dx); Elevation Of Levels [...] alcohol in about a year or so. [facility] Utilities Answer Date Recorded In the past 12 months has e [employer], gas, oil, or water [employer] threatened to shut off services in your [...] How often do you attend chur or sabianism services? Patient declined 02/10/2022 Do you belong to any clubs o r organizations such as mu-ism groups, unions, fraternal [...] Answer Date Recorded PHQ-2 Score 0 08/11/2024 [facility] of Occupat ional Health - Occupational Stress [...] your living situation today? I have a [facility] place to live 07/25/2024 Education Answer Date Recorded What is the highest level of school you have completed or the highest degree you have received? Associate degree: occupational, technical, or vocational program 07/16/2021 Comments No Sex and Gender Information Value Date Recorded Sex Assigned at Female 04/12/2021 7:39 PM BILINGUAL OFFICE ASSISTANT Legal Sex Female 7:53 PM BILINGUAL OFFICE ASSISTANT Gender Identity Female 04/12/2021 7:39 PM BILINGUAL OFFICE ASSISTANT Sexual Orientation Straight 04/12/2021 7: 39 PM BILINGUAL OFFICE ASSISTANT documented as of this encounter Last Filed Vital Signs Vital Sign Reading Time Taken Comments Blood Pressure 114/81 08/19/2024 8:00 AM CDT Pulse 92 08/19/2024 8:01 AM CDT Temperature 37 C (98.6 F) 08/19/2024 4:56 AM CDT Respiratory Rate 20 08/19/2024 4:56 AM CDT Oxygen Saturation 98% 08/19/2024 8:00 AM CDT Inhaled Oxygen Concentration - - Weight - - Height - - Body Mass Index - - documented in this encounter Discharge Instructions * Attachments The following attachments cannot be sent through Care Everywhere. * Abdominal Pain Adult [id number] (Greenlandic) documented in this encounter Medications at Time [...] testing. 1 each 05/15/2024 1:09 PM BILINGUAL OFFICE ASSISTANT 05/15/2024 blood sugar diagnostic strips Use to test blood sugar 2 time(s) per day. 100 test 1 07/04/2024 1:55 PM BILINGUAL OFFICE ASSISTANT 07/04/2024 07/05/19 blood-glucose meter misc Test as directed for diabetes control. 1 each 05/15/2024 1:09 PM BILINGUAL OFFICE ASSISTANT 05/15/2024 blood-glucose sensor (FreeStyle Kristina 3 Plus [...] 100 each 1 07/04/2024 1:55 PM BILINGUAL OFFICE ASSISTANT 07/04/2024 levonorgestreL (MIRENA) 21 mcg/24 hours (8 yrs) 52 mg IUD 1 Intra Uterine Device (1 each total) by intrauterine route continuously. Inserted 07/31/2022. 1 each 12/31/2022 lidocaine 4 % adhesive patch,medicated Place 1 patch on the skin daily. Apply to painful areas. 30 patch 1 04/20/2024 qbfcqo-qxiapcgf-ky ylase (Creon) 12,000-38,000-60,[address] [...] response. 2 each 04/25/2024 12:55 PM BILINGUAL OFFICE ASSISTANT 04/25/2024 pantoprazole (Protonix) 40 mg EC tabletIndications: [...] daily. 90 tablet 06/27/2024 5:33 PM BILINGUAL OFFICE ASSISTANT 06/28/2024 sennosides-docusat e sodium (Senokot-S) 8.6-50 mg per tablet Take 1 tablet by mouth 2 (two) times a day as needed for constipation. 100 tablet 06/27/2024 5:33 PM BILINGUAL OFFICE ASSISTANT 06/27/2024 teriparatide (Forteo) 20 mcg/dose (600mcg/2.4mL) injection Inject 0.08 mL (20 mcg total) under the skin daily. 2.4 mL 11 10/27/2023 traZODone (DesyreL) 50 mg tablet TAKE 1 TO 3 TABLETS(50 TO 150 MG) BY MOUTH AT BEDTIME NEEDED FOR SLEEP 180 tablet 3 07/27/2024 triamcinolone (Nasacort) 55 mcg/actuation nasal spray Administer 2 sprays into each nostril daily. 16.5 mL 11 08/30/2023 aspirin 81 mg chewable tablet Chew 1 tablet (81 mg total) daily. 90 tablet 3 04/20/2024 08/26/19 25 HYDROmorphone (Dilaudid) 4 mg tabletIndications: Chronic Pain/Nonacute Pain Take 0.5 tablets (2 mg total) by mouth every 12 (twelve) hours Indication: Chronic Pain/Nonacute Pain. 5 tablet 08/16/2024 08/26/19 25 insulin aspart U-100 (NovoLOG Flexpen U-100 [...] service writing Insulin orders 15 mL 3 07/04/2024 08/26/19 insulin glargine 100 unit/mL (3 mL) pen Inject 7 Units under the skin 2 (two) times a day. Pharmacy select brand per patient insurance/prefere nce. Patient to use glargine until she receives Tresiba. 12.6 mL 2 07/04/2024 09/09/19 ondansetron (Zofran) 4 mg tabletIndications: Transplant Liver (HCC),Nausea,Medic ation Therapy [facility] Not 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 Take 1 tablet (4 mg total) by mouth every 6 (six) hours as needed for nausea or vomiting. 30 tablet 05/05/2024 2:47 PM BILINGUAL OFFICE ASSISTANT 05/05/2024 08/26/19 pregabalin (Lyrica) 100 mg capsule Take 1 capsule (100 mg total) by mouth 2 (two) times a day. 60 capsule 07/27/2024 08/26/19 tacrolimus (Prograf) 1 mg capsuleIndications :prevention of liver transplant rejection Place 2 capsules (2 mg total) under the tongue every morning AND 2 capsules (2 mg total) every evening. 360 capsule 3 06/27/2024 5:33 PM BILINGUAL OFFICE ASSISTANT 06/27/2024 09/09/19 documented as of this encounter ED Notes * Zenobia Henderson M.D., J.D. - 08/19/2024 7:57 AM CDT Care of patient transferred to [place] by Dr. Rodrigues. Disposition pending liver transplant discussion. Patient's labs demonstrated elevated AST, ALT, alk phos, similar to a month ago. She continued to endorse left sided abdominal pain, similar to previous chronic pancreatitis. She reports she has beenunable to take her tacrolimus due to nausea/vomiting at home, though here she appears well hydratedwith normal vital and moist mucous membranes. She declined imaging given the chronicity of her pain. I discussed the patient with the liver transplant team who reviewed her labs. They are also familiar with the patient from previous visits. They noted that she has sublingual tacrolimus, which she should be able to take and absorb even in the setting of nausea and vomiting. They also felt that her level of potential rejection could be managed as an outpatient. Regarding her pain, given the chronicity of this and difficulty managing this, she is essentially on a pain contract with her primary provider and they recommended not changing that regimen. Therefore, patient will be discharged. Discussed with the patient who agreed that she would be able to take the tacrolimus. She was primarily concerned about management of her pain. I did have a long conversation with her about chronic pain management and noted that she does have pain medications at home and is connected with the right resources to explore more long-term pain control. I encouraged her to follow up with her primary provider if her current regimen was not sufficient. The transplant team will follow up with her regarding labs. VITAL SIGNS BP 94/65 Pulse (!) 58 Temp 37 ??C (Oral) Resp 20 LMP (LMP Unknown) SpO2 96% Final Diagnoses: as of 08/19/24 0757 Abdominal Pain Elevation Of Levels Of Liver Transaminase Levels Nausea And Vomiting Pancreatitis Chronic (HCC) Zenobia Henderson M.D., J.D. 08/19/24 0807 * Lopez Rodrigues M.D., M.B.A. - 08/19/2024 6:03 AM CDT The patient verbally consented to an audio recording of their visit to assist with the completion of documentation. SUBJECTIVE CHIEF COMPLAINT/REASON FOR VISIT Abdominal Pain and Flank Pain (Left Side) HISTORY OF PRESENT ILLNESS History of Present Illness Catia Bourgeois is a 34 year old female with a history of liver transplant who presents with worsening abdominal pain and vomiting. She describes the abdominal pain as more severe than her usual chronic pancreatitis pain, located primarily on the left side, and persisting since Wednesday. She has experienced vomiting, with two to four episodes per day, and has been unable to keep her immunosuppressive medications down. No fever, chills, urinary symptoms, or changes in bowel movements. Her past medical history includes a liver transplant in 2022. Multiple prior CT scans have not shown significant changes. No chest pain or shortness of breath. OBJECTIVE Initial Vitals Temperature 04/19/25 0456 37 ??C Pulse Rate 08/19/24455 85 Heart Rate -- Resp Rate 08/19/24455 20 Blood Pressure 08/19/24455 115/72 SpO2 08/19/24455 100 % Pain Score 08/19/24456 8 PHYSICAL EXAMINATION Physical Exam ABDOMEN: Left lateral abdominal tenderness. SKIN: No zoster rash. ASSESSMENT/PLAN Assessment & Plan Abdominal Pain Worsening left lateral abdominal pain consistent with chronic pancreatitis. No new findings on prior CT scans. Avoided further CT imaging to reduce radiation exposure. - Order laboratory tests. - Administer pain and antiemetic medications. - Consider hospital admission if no clinical improvement. Vomiting Vomiting 2 to 4 times daily since Wednesday, interfering with medication intake. Consistent with previous episodes. - Continue antiemetic medication as needed. - Monitor symptom improvement. 34F history of liver transplant and chronic abdominal pain and here with similar pain on the left side. She has had multiple prior CT scans. She expressed interest in avoiding additional radiation exposure, and we discussed checking labs and treating symptoms. Care signed out to morning team pending laboratory workup. She does have a new transaminitis which could be secondary to not tolerating her transplant medications. She may require hospitalization if she is not able to tolerate her medications. ED Course as of 08/21/24 0736 Sat Aug 19, 2024 0707 Bilirubin, Total, S: 1.2 Mon Aug 21, 2024 0735 Bilirubin, Total, S: 1.2 0735 Bilirubin, Direct, S(!): 0.4 0735 Aspartate Aminotransferase (AST), S(!): 133 0735 Alanine Aminotransferase (ALT), S(!): 223 0735 Alkaline Phosphatase, S(!): 275 Final Diagnoses: as of 08/21/24 0736 Abdominal Pain Elevation Of Levels Of Liver Transaminase Levels Nausea And Vomiting Pancreatitis Chronic (HCC) I have personally seen and examined this patient. I have fully participated in the care of this patient. I have reviewed all clinical information including history, physical exam, orders, and plan. Edd with the note of the resident. Lopez Rodrigues M.D., M.B.A. 08/21/24 07 Lopez Rodrigues M.D., M.B.A. 08/21/24735 * Britany Matthews R.N. - 08/19/2024 5:57 AM CDT Patient presents to ED with complaints of left sided abdominal pain and nausea/vomiting that has turner ongoing since Wednesday but has been on and off for the past few months. Patient reports a history ofa liver transplant 2 years ago. States that due to nausea/vomiting they have not been able to take their tacrolimus in the past week. Denies chest pain, SOB, fevers or blood in their vomit. On arrival patient is vitally stable on room air. Britany Matthews R.N. 08/19/24 0652 * Roby Us M.D. - 08/19/2024 5:53 AM CDT CHIEF COMPLAINT/REASON FOR VISIT Abdominal Pain and Flank Pain (Left Side) HISTORY OF PRESENT ILLNESS Catia Brunson is a 34 y.o. female with a past medical history most notable for liver transplant 2022 on immunosuppression in the setting of alcohol induced cirrhosis, chronic pancreatitis, GERD presenting with acute on chronic LLQ abdominal pain. She describes the abdominal pain as more severe than her usual chronic pancreatitis pain, located primarily on the left side, and persisting since Wednesday. Reports that she has vomited multiple times since Wednesday. States that she has vomited 2 to 4 times a day. She has experienced vomiting, with two to four episodes per day, and has been unable to retain her immunosuppressive medications. No fever, chills, urinary symptoms, or changes in bowel movements. Her past medical history includes a liver transplant in 2022. Multiple prior CT scans have not shown significant changes. No chest pain or shortness of breath. REVIEW OF SYSTEMS See HPI OBJECTIVE Initial Vitals Temperature 08/19/24 0456 37 ??C Pulse Rate 08/19/24 0456 85 Heart Rate -- Resp Rate 08/19/24455 20 Blood Pressure 08/19/24455 115/72 SpO2 08/19/24455 100 % Pain Score 08/19/24456 8 PHYSICAL EXAMINATION Constitutional: Nursing note and vitals reviewed. She appears ill. No distress. HENT: Head: Normocephalic and atraumatic. Eyes: Conjunctivae and EOM are normal. Cardiovascular: Normal rate, regular rhythm and normal heart sounds. Pulses are palpable. No murmur heard. Pulmonary/Chest: Effort normal and breath sounds normal. No respiratory distress. Abdominal: Soft. Bowel sounds are normal. There is abdominal tenderness in the left flank. There isguarding. There is no rigidity and no rebound. Musculoskeletal: General: No tenderness or edema. Normal range of motion. Cervical back: Normal range of motion. Neurological: Alert and oriented to person, place, and time. Skin: Skin is warm and dry. Psychiatric: She has a normal mood and affect. Behavior is normal. DIFFERENTIAL DIAGNOSIS Chronic abdominal pain Rejection from liver transplant Chronic pancreatitis DIAGNOSTIC STUDIES LABORATORY RESULTS: Abnormal Labs Reviewed CBC WITH DIFFERENTIAL, B - Abnormal; Notable for the following components: Result Value RBC Distrib Width 11.9 (*) Platelet Count 155 (*) All other components within normal limits IMAGING STUDIES: No orders to display MEDICAL DECISION MAKING Ms. Brunson is a very pleasant 34 y.o. female with a past medical history most notable for liver transplant 2022 on immunosuppression in the setting of alcohol induced cirrhosis, chronic pancreatitis, GERD presenting with acute on chronic LLQ abdominal pain. . On initial evaluation she was found to be resting, breathing comfortably and hemodynamically stable. Triage vital signs were reviewed. Available prior medical records were also reviewed and considered. I considered the above differential diagnosis and diagnostic studies were therefore done accordingly. Given the patient's history and physical examination findings we will do some laboratory workup that has well as treat the patient's pain. Patient has had numerous CT scans over the past few months. At this time we will hold off on CT scan per the patient's request. Her abdomen is soft but she does have tenderness in her left flank and left lateral side of her abdomen. We will pend laboratory workup including liver function. We will also treat her pain and her nausea. Patient was signed out to the oncoming care team pending laboratory workup. Does has a new transaminitis. Do think this is concerning for rejection given that she had not been tolerating her antirejection medications. Anticipate that she will need admission. I reviewed previous medical records including documentation from previous visits. I personally reviewed the lab result(s) and my interpretation is documented above. I personally reviewed the radiology image(s) and reviewed the radiology report(s). I independently reviewed the EKG and my interpretation is documented above. CLINICAL IMPRESSION ED Course as of 08/19/24 0701 Sat Aug 19, 2024 0611 Basic Metabolic Panel(!): Potassium, P 3.5(!) Sodium, P 136 Chloride, P 99 Bicarbonate, P 24 Anion Gap, P 13 BUN (Blood Urea Nitrogen), P 6 Creatinine 0.51(!) Estimated GFR (eGFR) >90 Calcium, Total, P 9.7 Glucose, P 156(!) That has metabolic shows a mildly low potassium 0611 Hepatic Function Panel 0611 Urinalysis, with Microscopic: Urine, Midstream: Source Urine, Urine, Midstream Color, U Yellow Clarity Clear Urinalysis negative 0701 Hepatic Function Panel(!): Bilirubin, Total, S 1.2 Bilirubin, Direct, S 0.4(!) Aspartate Aminotransferase (AST), S 133(!) Alanine Aminotransferase (ALT), S 223(!) Alkaline Phosphatase, S 275(!) Albumin, S 4.8 Protein, Total, S 7.1 Roby Us M.D. Resident 08/19/24 0717 * Abelino Gastelum R.N. - 08/19/2024 4:56 AM CDT Pt comes in with 4 days of left sided abdominal pain. Pt states that this has happened on and off for several months. Pt has history of liver transplant and has been unable to keep her transplant meds since evening. Abelino Gastelum R.N. 08/19/24 0459 documented in this encounter Plan of Treatment Upcoming Encounters Date Type Department Care Team (Latest Contact Info) Description 09/14/2024 11:00 AM CDT Appointment Department of Radiology, [facility], in [place], [place] [address] [place] [phone] Noreen Ansari P.A.-C., M.S. [address] [place] [phone] Jesus Figueroa M.D. [address] [place] [phone] 09/14/2024 4:00 PM CDT Telemedicine Division of Pulmonary Medicine in [place], [place] [address] [place] [address] Ben Dickson APRN, CSumaN.P. [address] [place] [phone] 09/15/2024 8:00 AM CDT Lab Department of Laboratory Medicine and Pathology, [facility] in [place], [place] [address] [place] [address] Edgar Montgomery M.B.B.S., M.S. [address] [place] [phone] 09/15/2024 10:00 AM CDT [facility] in [place], [place] [address] [place] [address] Edgar Montgomery M.B.B.S., M.S. [address] [place] [phone] Miriam Strickland M.D. [address] [place] [phone] 09/15/2024 11:00 AM CDT Office Visit [facility] in [place], [place] [address] [place] [address] Edgar Montgomery M.B.B.S., M.S. [address] [place] [phone] Discharge Disposition: Home or Self Care 09/15/2024 1:45 PM CDT Infusion Department of Infusion Therapy in [place], [place] [address] [place] [address] Juan Pete M.D. [address] [place] [phone] 09/18/2024 2:15 PM CDT Hospital Encounter Department of Radiology, [facility] in [place], [place] [address] [place] [address] Edgar Montgomery M.B.B.S., M.S. [address] [place] [phone] 09/20/2024 3:00 PM CDT Comprehensive Visit [facility] in [place], [place] [address] [place] [address] Catia Quintana APRN, C.N.P. [address] [place] [phone] 10/03/2024 9:00 AM CDT Appointment Department of Radiology, [facility], in [place], [place] [address] [place] [address] Marisabel Carpenter APRN, C.N.P., D.N.P. [address] [place] [phone] 10/05/2024 12:00 PM CDT Appointment Division of Pulmonary Medicine in [place], [place] [address] [place] [address] Edgar Montgomery M.B.B.S., M.S. [address] [place] [address] 10/10/2024 7:50 AM CDT Lab Department of Laboratory Medicine and Pathology, [facility] in [place], [place] [address] [place] [address] Marisabel Carpenter APRN, C.N.P., D.N.P. [address] [place] [phone] 10/10/2024 8:00 AM CDT Lab Department of Laboratory Medicine and Pathology, [facility] in [place], [place] [address] [place] [address] Marisabel Carpenter APRN, C.N.P., D.N.P. [address] [place] [phone] 10/10/2024 8:30 AM CDT Nurse Only Ramirez Nguyen [facility] in [place], [place] [address] [place] [address] Marisabel Crapenter APRN, C.N.P., D.N.P. [address] [place] [phone] 10/10/2024 9:20 AM CDT Appointment Department of Radiology, [facility] in [place], [place] [address] [place] [address] Marisabel Carpenter APRN, C.N.P., D.N.P. [address] [place] [phone] 10/10/2024 9:45 AM CDT Appointment Department of Laboratory Medicine and Pathology, [facility] in [place], [place] [address] [place] [address] Marisabel Carpenter APRN, C.N.PSuma, D.N.P. [address] [place] [phone] 10/10/2024 1:30 PM CDT Appointment Department of Radiology, [facility] in [place], [place] [address] [place] [address] Marisabel Carpenter APRN, C.N.PSuma, D.N.P. [address] [place] [phone] 10/10/2024 2:45 PM CDT Appointment Department of Radiology, [facility] in [place], [place] [address] [place] [address] Marisabel Carpenter APRN, C.N.PSuma, D.N.P. [address] [place] [phone] 10/11/2024 8:00 AM CDT [facility] [place], [place] [address] [place] [address] Marisabel Carpenter APRN, C.N.P., D.N.P. [address] [place] [phone] 10/11/2024 11:00 AM CDT Comprehensive Visit [facility] in [place], [place] [address] [place] [address] Sree Devlin M.D. [address] [place] [phone] 10/11/2024 1:00 PM CDT Comprehensive Visit Department of Otorhinolaryngology in [place], [place] [address] [place] [phone] Randal Urbano P.A.-C., M.S. [address] [place] [phone] 10/11/2024 2:00 PM CDT [facility] in [place], [place] [address] [place] [address] Hiro Murillo P.A.-C. [address] [place] [phone] 10/11/2024 4:00 PM CDT Comprehensive Visit Department of Dermatology in [place], [place] [address] [place] [phone] Parul Martinez M.D. [address] [place] [phone] 10/12/2024 8:00 AM CDT Telemedicine [facility] in [place], [place] [address] [place] [address] Ervin Mckeon D.O. [address] [place] [phone] 11/01/2024 2:15 PM CDT Appointment Division of Pulmonary Medicine in [place], [place] [address] [place] [phone] Edgar Montgomery M.B.B.S., M.S. [address] [place] [phone] documented as of this encounter Procedures Procedure Name Priority Date/Time Associated Diagnosis Comments LACTATE FOR SEPSIS WITH REFLEX STAT 08/19/2024 5:40 AM CDT HEPATIC FUNCTION PANEL, S STAT 08/19/2024 5:40 AM CDT CBC WITH DIFFERENTIAL, B STAT 08/19/2024 5:40 AM CDT HUMAN CHORIONIC GONADOTROPIN (HCG), EDDI, STAT 08/19/2024 5:40 AM CDT LIPASE, S/P STAT 08/19/2024 5:40 AM CDT BASIC METABOLIC PANEL, S/P STAT 08/19/2024 5:40 AM CDT DIPSTICK, U STAT 08/19/2024 5:12 AM CDT MICROSCOPIC AUTOMATED STAT 08/19/2024 5:12 AM CDT BACTERIAL CULTURE, AEROBIC + SUSC, URINE STAT 08/19/2024 5:12 AM CDT PH, U STAT 08/19/2024 5:12 AM CDT OSMOLALITY, U STAT 08/19/2024 5:12 AM CDT URINALYSIS WITH MICROSCOPIC STAT 08/19/2024 5:12 AM CDT documented in this encounter Results * hCG (Human Chorionic Gonadotropin), Quantitative, (08/19/2024 5:40 AM CDT) HCG, Quantitative, , P 1.0 <5 IU/L 08/19/2024 6:05 AM CDT STMA Blood (Blood, Venous) 08/19/2024 5:40 AM CDT 08/19/2024 5:50 AM CDT Lopez Rodrigues M.D., M.B.A. LAB BLOOD ADD-ON Fin al Result [facility] [place] [address] [place] [address] * Lactate for Sepsis with Reflex (08/19/2024 5:40 AM CDT) [facility] Lactate, P 0.6 0.5 - 2.2 mmol/L 08/19/2024 6:02 AM CDT STMA Blood (Blood, Venous) 08/19/2024 5:40 AM CDT 08/19/2024 5:50 AM CDT Lopez Rodrigues M.D., M.B.A. LAB BLOOD NON ADD-ON Final Result [facility] [place] [address] [place], [place] [id number] [place] [address] [address] [place] [address] * (ABNORMAL) CBC with Differential, Blood (08/19/2024 5:40 AM CDT) [facility] Hemoglobin 14.8 11.6 - 15.0 g/dL 08/19/2024 5:52 AM CDT STMA Hematocrit 41.5 35.5 - 44.9 % 08/19/2024 5:52 AM CDT STMA Erythrocytes 4.86 3.92 - 5.13 x10(12)/L 08/19/2024 5:52 AM CDT STMA MCV 85.4 78.2 - 97.9 fL 08/19/2024 5:52 AM CDT STMA RBC Distrib Width 11.9(L) 12.2 - 16.1 % 08/19/2024 5:52 AM CDT STMA Platelet Count 155(L) 157 - 371 x10(9)/L 08/19/2024 5:52 AM CDT STMA Leukocytes 4.4 3.4 - 9.6 x10(9)/L 08/19/2024 5:52 AM CDT STMA Neutrophils 2.32 1.56 - 6.45 x10(9)/L 08/19/2024 5:52 AM CDT DHPM Lymphocytes 1.58 0.95 - 3.07 x10(9)/L 08/19/2024 5:52 AM CDT STMA Monocytes 0.30 0.26 - 0.81 x10(9)/L 08/19/2024 5:52 AM CDT STMA Eosinophils 0.13 0.03 - 0.48 x10(9)/L 08/19/2024 5:52 AM CDT STMA Basophils <0.03 0.01 - 0.08 x10(9)/L 08/19/2024 5:52 AM CDT STMA Blood (Blood, Venous) 08/19/2024 5:40 AM CDT 08/19/2024 5:50 AM CDT us Lopez Rodrigues M.D., M.B.A. LAB BLOOD ADD-ON Fin al Result Performing Organization Address City/[facility]/ZIP Co de Phone Number [facility] [place] [address] STMA [facility] [address] 200 [place] [address] * (ABNORMAL) Lipase (08/19/2024 5:40 AM CDT) Pathologist [facility] Lipase, S 9(L) 13 - 60 U/L 08/19/2024 7: 00 AM CDT DTL Blood (Blood, Venous) 08/19/2024 5:40 AM CDT 08/19/2024 6:33 AM CDT us Lopez Rodrigues M.D., M.B.A. LAB BLOOD ADD-ON Fin al Result Performing Organization Address City/[facility]/ZIP Co de Phone Number [facility] [place] [address] [place] [address] * (ABNORMAL) Hepatic Function Panel (08/19/2024 5:40 AM CDT) Bilirubin, Total, S 1.2 0.0 - 1.2 mg/dL 08/19/2024 7:00 AM CDT DTL Bilirubin, Direct, S 0.4(H) 0.0 - 0.3 mg/dL 08/19/2024 7:00 AM CDT DTL Aspartate Aminotransferase (AST), S 133(H) 8 - 43 U/L 08/19/2024 7:00 AM CDT DTL Alanine Aminotransferase (ALT), S 223(H) 7 - 45 U/L 08/19/2024 7:00 AM CDT DTL Alkaline Phosphatase, S 275(H) 35 - 104 U/L 08/19/2024 7:00 AM CDT DTL Albumin, S 4.8 3.5 - 5.0 g/dL 08/19/2024 7:00 AM CDT DTL Protein, Total, S 7.1 6.3 - 7.9 g/dL 08/19/2024 7:00 AM CDT DTL Blood (Blood, Venous) 08/19/2024 5:40 AM CDT 08/19/2024 6:33 AM CDT us Lopez Rodrigues M.D., M.B.A. LAB BLOOD ADD-ON Fin al Result [address] [address], [facility] [address] [address] * (ABNORMAL) Basic Metabolic Panel (08/19/2024 5:40 AM CDT) Potassium, P 3.5(L) 3.6 - 5.2 mmol/L 08/19/2024 6:05 AM CDT STMA Sodium, P 136 135 - 145 mmol/L 08/19/2024 6:05 AM CDT STMA Chloride, P 99 98 - 107 mmol/L 08/19/2024 6:05 AM CDT STMA Bicarbonate, P 24 22 - 29 mmol/L 08/19/2024 6:05 AM CDT STMA Anion Gap, P 13 7 - 15 08/19/2024 6:05 AM CDT STMA BUN (Blood Urea Nitrogen), P 6 6 - 21 mg/dL 08/19/2024 6:05 AM CDT STMA Creatinine 0.51(L) 0.59 - 1.04 mg/dL 08/19/2024 6:05 AM CDT STMA Estimated GFR (eGFR) >90 >=60 mL/min/BSA 08/19/2024 6:05 AM CDT STMA Comment: Estimated GFR calculated using the 2020 CKD_EPI creatinine equation. Calcium, Total, P 9.7 8.6 - 10.0 mg/dL 08/19/2024 6:05 AM CDT STMA Glucose, P 156(H) 70 - 140 mg/dL 08/19/2024 6:05 AM CDT STMA Blood (Blood, Venous) 08/19/2024 5:40 AM CDT 08/19/2024 5:50 AM CDT Lopez Rodrigues M.D., M.B.A. LAB BLOOD ADD-ON Fin al Result Performing Organization Address City/[facility]/ZIP Co de Phone Number [facility] [place] [address] STMA [facility] 200 [place] [address] * pH, Urine (08/19/2024 5:12 AM CDT) pH, U 6.8 4.5 - 8.0 08/19/2024 6: 27 AM CDT DTL Urine 08/19/2024 5:12 AM CDT 08/19/2024 5:41 AM CDT Ember Box M.D., M.S. LAB URINE ORDERABLES Fi nal Result Performing Organization Address City/[facility]/ZIP Co de Phone Number [facility] [place] 200 [place] [address], [facility] DTL [facility] 200 [place] [address] * (ABNORMAL) Osmolality, Urine (08/19/2024 5:12 AM CDT) Pathologist [facility] Osmolality, U 106(L) 150 - 1150 mOsm/kg 08/19/2024 6:27 AM CDT DTL Urine 08/19/2024 5:12 AM CDT 08/19/2024 5:41 AM CDT Ember Box M.D., M.S. LAB URINE ORDERABLES Fi nal Result Performing Organization Address City/[facility] Co de Phone Number [facility] [place] 200 [place] [address], [facility] 200 [place] [address] * Dipstick, Urine (08/19/2024 5:12 AM CDT) Pathologist [facility] Hemoglobin, QL, U Negative Negative 08/19/2024 6:10 [...] ORDERABLES Fi nal Result Performing Organization Address City/[facility] Co de Phone Number [facility] [place] [address] [place] [address], [facility] 200 [place] [address] * Microscopic Automated (08/19/2024 5:12 AM CDT) Pathologist [facility] Microscopy Normal 08/19/2024 6:10 AM CDT DTL RBC None Seen <3 /hpf 08/19/2024 6:10 AM CDT DTL WBC None Seen /hpf 08/19/2024 6:10 AM CDT DTL Comment: ----REFERENCE VALUE---- <4 (Males) <11 (Females) Urine 08/19/2024 5:12 AM CDT 08/19/2024 5:41 AM CDT Ember Box M.D., M.S. LAB URINE ORDERABLES Fi nal Result Performing Organization Address [facility] Co de Phone Number [facility] [place] [address] 200 [place] [address] * Bacterial Culture, Aerobic + Susceptibility, Urine (08/19/2024 5:12 AM CDT) Urine Culture Organism present <10,000 cfu/mL, susceptibilities not performed per laboratory criteria. 08/20/2024 6:36 AM CDT DTL Urine (Urine, Midstream) 08/19/2024 5:12 AM CDT 08/19/2024 5:49 AM CDT Comment:Specimen Source Site : Urine Lopez Rodrigues M.D., M.B.A. LAB MICROBIOLOGY - G ENERAL ORDERABLES Final Result Performing Organization Address [facility] de Phone Number [facility] [place] [address] [place] [address] * (ABNORMAL) Urinalysis, with Microscopic: Urine, Midstream [...] M.D., M.B.A. LAB URINE ORDERABLES Final Result [facility] [place] [address] [place] [address], [place] [facility] [address] [place] [address] documented in this encounter Visit Diagnoses Diagnosis Abdominal Pain- Primary Elevation Of Levels Of Liver Transaminase Levels Nausea And Vomiting Pancreatitis Chronic (HCC) documented in this encounter Administered Medications Inactive Administered Medications - up to 3 most recent administrations Medication Order MAR Action Action Date Dose Rate Site HYDROmorphone (PF) injection 0.5 mg (Dilaudid) 0.5 mg, intravenous, Once, On 08/19/24 at 0629, For 1 dose Given 08/19/2024 6:40 AM CDT 0.5 mg NaCl 0.9 % bolus 1,000 mL 1,000 mL, intravenous, at 1,000 mL/hr, Administer over 1 Hours, Once, On 08/19/24 at 0501, For 1 dose New Bag 08/19/2024 5:50 AM CDT 1,000 mL 100 0 mL/hr ondansetron (PF) injection 4 mg (Zofran) 4 mg, intravenous, Once as needed, nausea, vomiting, Starting on 08/19/24 at 0459, For 1 dose, Select antiemetic if IV access obtained. Given 08/19/2024 5:50 AM CDT 4 mg sodium chloride 0.9 % injection 10 mL 10 mL, intravenous, As needed, line care, Starting on 08/19/24 at 0459, Peripheral Intravenous Catheter and Rapid Infusion Catheter, prior to blood sampling, post blood transfusion or post blood sampling sodium chloride 0.9 % injection 3 mL 3 mL, intravenous, As needed, line care, Starting on 08/19/24 at 0459, Prior to and following infusion and between multiple consecutive infusions: sodium chloride 0.9 % injection sodium chloride 0.9 % injection 3 mL 3 mL, intravenous, Every 12 hours scheduled, First dose on 08/19/24 at 0900, Peripheral Intravenous Catheter and Rapid Infusion Catheter, when no infusion to maintain patency documented in this encounter Active and Recently Administered Medications Times are shown in CDT. Scheduled Medication Order 08/17/2024 08/18/2024 08/19/2024 HYDROmorphone (PF) injection 0.5 mg (Dilaudid) (COMPLETED) 0.5 mg, intravenous, Once, On 08/19/24 at 0629, For 1 dose 0640 (Given - Provid er: Britany Matthews R.N.) NaCl 0.9 % bolus 1,000 mL (COMPLETED) 1,000 mL, intravenous, at 1,000 mL/hr, Administer over 1 Hours, Once, On 08/19/24 at 0501, For 1 dose 0550 (New Bag - Prov ider: Abelino Gastelum R.N.)0803 (Stopped - Provider: Criselda Florian R.N.) sodium chloride 0.9 % injection 3 mL 3 mL, intravenous, Every 12 hours scheduled, First dose on 08/19/24 at 0900, Peripheral Intravenous Catheter and Rapid Infusion Catheter, when no infusion to maintain patency PRN Medication Order 08/17/2024 08/18/2024 08/19/2024 ondansetron (PF) injection 4 mg (Zofran) (COMPLETED)(Linked Group 1) 4 mg, intravenous, Once as needed, nausea, vomiting, Starting on 08/19/24 at 0459, For 1 dose, Select antiemetic if IV access obtained. 0550 (Given - Provid er: Abelino Gastelum R.N.) sodium chloride 0.9 % injection 10 mL 10 mL, intravenous, As needed, line care, Starting on 08/19/24 at 0459, Peripheral Intravenous Catheter and Rapid Infusion Catheter, prior to blood sampling, post blood transfusion or post blood sampling sodium chloride 0.9 % injection 3 mL 3 mL, intravenous, As needed, line care, Starting on 08/19/24 at 0459, Prior to and following infusion and between multiple consecutive infusions: sodium chloride 0.9 % injection Linked Groups Order Group 1: ondansetron ODT disintegrating tablet 4 mg (Zofran-ODT) (COMPLETED) 4 mg, oral, Once as needed, nausea, vomiting, Starting on 08/19/24 at 0459, For 1 dose, Select antiemetic if no IV access. When splitting ODT at bedside, handle with gloves and a pill splitter to prevent moisture contact. Or ondansetron (PF) injection 4 mg (Zofran) (COMPLETED)Jump to med 4 mg, intravenous, Once as needed, nausea, vomiting, Starting on 08/19/24 at 0459, For 1 dose, Select antiemetic if IV access obtained. documented in this encounter Additional Health Concerns Infection Onset Date Last Indicated Resolved Time Protective Environment 10/10/2022 10/10/2022 Assessment Noted Time PHQ-9 Depression Total Score: 4 08/12/19 25 3:31 PM CDT documented as of this encounter Care Teams Die Caster Relationship Specialty Start Date End Date Ana Red MPAS, P.A.-C. [address] [place], [place] [address]luz[place] [address] PCP - General Internal Medicine 12/01/21 [facility] [place] lab 08/25/21 documented as of this encounter
--- OUTSIDE RECORDS SUMMARY | 2024-09-14 01:31 | XMS_ITS | Encounter Summary ---
Author Organization [facility] Address [address] [place] [address] Care Team Providers Care Independent Producer Name Role Phone Ana Red P.A.-C. Primary Care Pro vider Encounter Details Date Type Department Care Team (Late st Contact Info) Description 09/01/2024 Orders Only Ramirez diaz [facility] for Transplantation and Clinical Regeneration in [place], [place] [address] [place] [phone] Noreen Ansari P.Silvano.-C., M.S. [address] [place] [phone] Social History Tobacco Use Types Packs/Day Years Used Date Smoking Tobacco: Former Cigarettes 1 - 10/12/2021 Passive Smoke Exposure: Never Smokeless Tobacco: Never Comments:Smoked cigarettes f rom age 18-30 about Alcohol Use Standard Drinks/Week Comments Never 0 (1 standard drink = 0.6 oz pure alcohol) Havent had any alcohol in about a year or so. [facility] Utilities Answer Date Recorded In the past 12 months has th e electric, gas, oil, or water [employer] threatened to shut off services in your [...] How often do you attend chur or anabaptist services? Patient declined 02/10/2022 Do you belong to any clubs o r organizations such as jew groups, unions, fraternal [...] Answer Date Recorded PHQ-2 Score 0 08/11/2024 [facility] Occup[facility] ional [facility] - Occupational Stress [...] Sex Assigned at Female 04/12/2021 7:39 PM FINANCIAL INTERN Legal Sex Female 7:53 PM FINANCIAL INTERN Gender Identity Female 04/12/2021 7:39 PM FINANCIAL INTERN Sexual Orientation Straight 04/12/2021 7: 39 PM FINANCIAL INTERN documented as of this encounter Plan of Treatment Upcoming Encounters Date Type Department Care Team (Latest Contact Info) Description 09/14/2024 11:00 AM CDT Appointment Department of Radiology, [facility], in [place], [place] [address] [place] [address] Noreen Ansari P.A.-C., M.S. [address] [place] [phone] Jesus Figueroa M.D. [address] [place] [phone] 09/14/2024 4:00 PM CDT Telemedicine Division of Pulmonary Medicine in [place], [place] [address] [place] [address] Ben Dickson APRN, CSumaN.P. [address] [place] [phone] 09/15/2024 8:00 AM CDT Lab Department of Laboratory Medicine and Pathology, [facility], in [place], [place] [address] [place] [address] Edgar Montgomery M.B.B.S., M.S. [address] [place] [phone] 09/15/2024 10:00 AM CDT Comprehensive Visit [facility] for Transplantation and Clinical Regeneration in [place], [place] [address] [place] [address] Edgar Montgomery M.B.B.S., M.S. [address] [place] [phone] Miriam Strickland M.D. [address] [place] [phone] 09/15/2024 11:00 AM CDT Office Visit [facility] in [place], [place] [address] [place] [address] Edgar Montgomery M.B.B.S., M.S. [address] [place] [phone] Discharge Disposition: Home or Self Care 09/15/2024 1:45 PM CDT Infusion Department of Infusion Therapy in [place], [place] [address] [place] [address] Juan Pete M.D. [address] [place] [phone] 09/18/2024 2:15 PM CDT Hospital Encounter Department of Radiology, [facility] in [place], [place] [address] [place] [address] Edgar Montgomery M.B.B.S., M.S. [address] [place] [phone] 09/20/2024 3:00 PM CDT Comprehensive Visit [facility] in [place], [place] [address] [place] [phone] Catia Quintana APRN, C.N.P. [address] [place] [phone] 10/03/2024 9:00 AM CDT Appointment Department of Radiology, [facility], in [place], [place] [address] [place] [phone] Marisabel Carpenter APRN, C.N.P., D.N.P. [address] [place] [phone] 10/05/2024 12:00 PM CDT Appointment Division of Pulmonary Medicine in [place], [place] [address] [place] [phone] Edgar Montgomery M.B.B.S., M.S. [address] [place] [phone] 10/10/2024 7:50 AM CDT Lab Department of Laboratory Medicine and Pathology, [facility] in [place], [place] [address] [place] [address] Marisabel Carpenter APRN, C.N.P., D.N.P. [address] [place] [phone] 10/10/2024 8:00 AM CDT Lab Department of Laboratory Medicine and Pathology, [facility] in [place], [place] [address] [place] [address] Marisabel Carpenter APRN, C.N.P., D.N.P. [address] [place] [phone] 10/10/2024 8:30 AM CDT Nurse Only Ramirez diaz [facility] for Transplantation and Clinical Regeneration in [place], [place] [address] [place] [address] Marisabel Carpenter APRN, C.N.P., D.N.P. [address] [place] [phone] 10/10/2024 9:20 AM CDT Appointment Department of Radiology, [facility] in [place], [place] [address] [place] [address] Marisabel Carpenter APRN, C.N.P., D.N.P. [address] [place] [phone] 10/10/2024 9:45 AM CDT Appointment Department of Laboratory Medicine and Pathology, [facility] in [place], [place] [address] [place] [address] Marisabel Carpenter APRN, C.N.P., D.N.P. [address] [place] [address] 10/10/2024 1:30 PM CDT Appointment Department of Radiology, [facility] in [place], [place] [address] [place] [address] Marisabel Carpenter APRN, C.N.PSuma, D.N.P. [address] [place] [phone] 10/10/2024 2:45 PM CDT Appointment Department of Radiology, [facility], in [place], [place] [address] [place] [address] Marisabel Carpenter APRN, C.N.Frances, D.N.P. [address] [place] [phone] 10/11/2024 8:00 AM CDT Office Visit [facility] for Transplantation and Clinical Regeneration in [place], [place] [address] [place] [address] Marisabel Carpenter APRN C.N.PSuma, D.N.P. [address] [place] [phone] 10/11/2024 11:00 AM CDT Comprehensive Visit [facility] Clinical Regeneration in [place], [place] [address] [place] [address] Sree Devlin M.D. [address] [place] [phone] 10/11/2024 1:00 PM CDT Comprehensive Visit Department of Otorhinolaryngology in [place], [place] [address] [place] [address] Randal Urbano P.A.Jordan., M.S. [address] [place] [phone] 10/11/2024 2:00 PM CDT Office Visit [facility] Transplantation and Clinical Regeneration in [place], [place] [address] [place] [address] Hiro Murillo P.A.-C. [address] [place] [phone] 10/11/2024 4:00 PM CDT Comprehensive Visit Department of Dermatology in [place], [place] [address] [place] [phone] Parul Martinez M.D. [address] [place] [phone] 10/12/2024 8:00 AM CDT Telemedicine [facility] Transplantation and Clinical Regeneration in [place], [place] [address] [place] [phone] Ervin cMkeon D.O. [address] [place] [phone] 11/01/2024 2:15 PM CDT Appointment Division of Pulmonary Medicine in [address] [phone] Edgar Montgomery M.B.BSumaS., M.S. [address] [place] [phone] documented as of this encounter Visit Diagnoses Not on filedocumented in this encounter Additional Health Concerns Infection Onset Date Last Indicated Resolved Time Protective Environment 10/10/2022 10/10/2022 Assessment Noted Time PHQ-9 Depression Total Score: 4 08/12/19 25 3:31 PM CDT documented as of this encounter Care Teams Independent Producer Relationship Specialty Start Date End Date Ana Red MPAS P.A.-C. [address] [facility] [place]ua [phone] PCP - General Internal Medicine 12/01/21 [facility]- [place] lab 08/25/21 documented as of this encounter
--- OUTSIDE RECORDS SUMMARY | 2024-09-14 01:31 | XMS_ITS | Encounter Summary ---
Author Organization [facility] Address [address] [place] [address] Care Team Providers Care Roaster Operator Name Role Phone Ana Red P.A.-C. Primary Care Pro vider Reason for Referral * Outpatient (Routine) - Closed Specialty Diagnoses / Procedures Referred By Meir lara Referred To Contact Diagnoses Transplant Liver (HCC) Medication Therapy Warning Coordination Meteorologist Not 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 Elevated Liver Function Test Procedures TXP liver biopsy Mgiue Escobar M.D. [address] [place] [phone] Phone: tel: fax: [facility] Referral ID Status Reason Start Date Expiration Date Visits Re quested Visits Authorized [id number] Closed 08/31/2024 12/01/2025 1 1 Reason for Visit * Auth/Cert (Routine) Specialty Diagnoses / Procedures Referred By Meir lara Referred To Contact Diagnoses Transplant Liver (HCC) Medication Therapy Warning Coordination Meteorologist Not 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 Elevated Liver Function Test Procedures TXP LIVER BIOPSY Referral ID Status Reason Start Date Expiration Date Visits Re quested Visits Authorized [id number] 1 1 Encounter Details Date Type Department Care Team (Latest Contact Info) Description 09/05/2024 11:33 AM CDT - 09/05/2024 4:41 PM CDT Hospital Encounter RST ROEI 01 4 AM ADMIT [address] [place] [phone] Migue Escobar M.D. 200 [place] [phone] Hiro Murillo P.A.-C. 200 [place] [phone] Transplant Liver (HCC); Medication Therapy Warning Coordination Meteorologist Not 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; Elevated Liver Function Test; Acute [...] alcohol in about a year or so. [facility] [email or web address] Answer Date Recorded In the past 12 months has [employer] ([email or web address]), oil, or water [employer] threatened to shut off services in your [...] do you attend [facility] or anglican services? Patient declined 02/10/2022 Do you belong to any clubs o r organizations such as confucianist groups, unions, fraternal [...] Answer Date Recorded PHQ-2 Score 0 08/11/2024 [facility] Occupat ional [facility] - Occupational Stress Questionnaire Answer Date [...] your living situation today? I have a [facility] place to live 08/22/2024 Education Answer Date Recorded What is the highest level of school you have completed or the highest degree you have received? Associate degree: occupational, technical, or vocational program 07/16/2021 Comments No Sex and Gender Information Value Date Recorded Sex Assigned at Female 04/12/2021 7:39 PM CATTLE EXAMINER Legal Sex Female 7:53 PM CATTLE EXAMINER Gender Identity Female 04/12/2021 7:39 PM CATTLE EXAMINER Sexual Orientation Straight 04/12/2021 7: 39 PM CATTLE EXAMINER documented as of this encounter Last Filed [...] glucose testing. 1 each 05/15/2024 1:09 PM CATTLE EXAMINER 05/15/2024 blood sugar diagnostic strips Use to test blood sugar 2 time(s) per day. 100 test 1 07/04/2024 1:55 PM CATTLE EXAMINER 07/04/2024 07/05/19 blood-glucose meter misc Test as directed for diabetes control. 1 each 05/15/2024 1:09 PM CATTLE EXAMINER 05/15/2024 blood-glucose sensor (FreeStyle Kristina 3 Plus [...] testing. 100 each 1 07/04/2024 1:55 PM CATTLE EXAMINER 07/04/2024 levonorgestreL (MIRENA) 21 mcg/24 hours (8 yrs) 52 mg IUD 1 Intra Uterine Device (1 each total) by intrauterine route continuously. Inserted 07/31/2022. 1 each 12/31/2022 lidocaine 4 % adhesive patch,medicated Place 1 patch on the skin daily. Apply to painful areas. 30 patch 1 04/20/2024 qqcgnk-vwngdqbg-ro ylase (Creon) 12,000-38,000-60,[address] [...] minimal response. 2 each 04/25/2024 12:55 PM CATTLE EXAMINER 04/25/2024 pantoprazole (Protonix) 40 mg EC tabletIndications: [...] mouth daily. 90 tablet 06/27/2024 5:33 PM CATTLE EXAMINER 06/28/2024 prochlorperazine (Compazine) 10 mg tablet Take 1 tablet (10 mg total) by mouth every 6 (six) hours as needed for nausea or vomiting. 30 tablet 08/31/2024 9:26 AM CDT 08/31/2024 sennosides-docusat e sodium (Senokot-S) 8.6-50 mg per tablet Take 1 tablet by mouth 2 (two) times a day as needed for constipation. 100 tablet 06/27/2024 5:33 PM CATTLE EXAMINER 06/27/2024 teriparatide (Forteo) 20 mcg/dose (600mcg/2.4mL) injection [...] mg tabletIndications: Transplant Liver (HCC),Nausea,Medic ation Therapy Warning Coordination Meteorologist Not 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 Take 1 tablet (4 mg total) by mouth every 6 (six) hours as needed for nausea or vomiting. 28 tablet 08/25/2024 8:13 PM CDT 08/25/2024 09/09/19 pregabalin (Lyrica) 100 mg capsule Take 1 capsule (100 mg total) by mouth 2 (two) times a day. 60 capsule 08/25/2024 09/07/19 25 pregabalin (Lyrica) 25 mg capsule Take 1 capsule (25 mg total) by mouth 2 (two) times a day. 60 capsule 08/25/2024 09/09/19 tacrolimus (Prograf) 1 mg capsuleIndications :prevention of liver transplant rejection Place 2 capsules (2 mg total) under the tongue every morning AND 2 capsules (2 mg total) every evening. 360 capsule 3 06/27/2024 5:33 PM CATTLE EXAMINER 06/27/2024 09/09/19 documented as of this encounter Procedure Notes * Hiro Murillo P.A.-C. - 09/05/2024 4:17 PM CDTAssociated Order(s): TXP liver biopsy Pre-Procedure Diagnose(s): Transplant Liver (HCC); Medication Therapy Retirement Not 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; Elevated Liver Function Test Post-Procedure Diagnose(s): Transplant Liver (HCC); Medication Therapy Retirement Not 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;Elevated Liver Function Test TXP liver [...] 11:00 AM CDT Appointment Department of Radiology, [facility], in [place], [place] [address] [place] [phone] Noreen Ansari P.A.-C., M.S. [address] [place] [phone] Jesus Figueroa M.D. [address] [place] [phone] 09/14/2024 4:00 PM CDT Telemedicine Division of Pulmonary Medicine in [place], [place] [address] [place] [phone] Ben Dickson APRN, C.N.P. [address] [place] [phone] 09/15/2024 8:00 AM CDT Lab Department of Laboratory Medicine and Pathology, [facility] in [place], [place] [address] [place] [address] Edgar Montgomery M.B.B.S., M.S. [address] [place] [phone] 09/15/2024 10:00 AM CDT Comprehensive Visit [facility] in [place], [place] [address] [place] [address] Edgar Montgomery M.B.B.S., M.S. [address] [place] [phone] Miriam Strickland M.D. [address] [place] [phone] 09/15/2024 11:00 AM CDT Office Visit [facility] in [place], [place] [address] [place] [address] Edgar Montgomery M.B.B.S., M.S. [address] [place] [phone] Discharge Disposition: Home or Self Care 09/15/2024 1:45 PM CDT Infusion Department of Infusion Therapy in [place], [place] [address] [place] [address] Juan Pete M.D. [address] [place] [phone] 09/18/2024 2:15 PM CDT Hospital Encounter Department of Radiology, [facility], in [place], [place] [address] [place] [address] Edgar Montgomery M.B.B.S., M.S. [address] [place] [phone] 09/20/2024 3:00 PM CDT Comprehensive Visit [facility] in [place], [place] [address] [place] [address] Catia Quintana APRN, C.N.P. [address] [place], [place] [phone] 10/03/2024 9:00 AM CDT Appointment Department of Radiology, [facility] in [place], [place] [address] [place] [address] Marisabel Carpenter APRN, C.N.P., D.N.P. [address] [place] [phone] 10/05/2024 12:00 PM CDT Appointment Division of Pulmonary Medicine in [place], [place] [address] [place] [address] Edgar Montgomery M.B.B.S., M.S. [address] [place] [phone] 10/10/2024 7:50 AM CDT Lab Department of Laboratory Medicine and Pathology, [facility] in [place], [place] [address] [place] [address] Marisabel Carpenter APRN, C.N.P., D.N.P. [address] [place] [phone] 10/10/2024 8:00 AM CDT Lab Department of Laboratory Medicine and Pathology, [facility] in [place], [place] [address] [place] [address] Marisabel Carpenter APRN, C.N.P., D.N.P. [address] [place] [phone] 10/10/2024 8:30 AM CDT Nurse Only Ramirez diaz [facility] for Transplantation and Clinical Regeneration in [place], [place] [address] [place] [address] Marisabel Carpenter APRN, C.N.P., D.N.P. [address] [place] [phone] 10/10/2024 9:20 AM CDT Appointment Department of Radiology, [place], [place] [address] [place] [address] Marisabel Carpenter APRN, C.N.P., D.N.P. [address] [place] [phone] 10/10/2024 9:45 AM CDT Appointment Department of Laboratory Medicine and Pathology, [facility] in [place], [place] [address] [place] [address] Marisabel Carpenter APRN, C.N.P., D.N.P. [address] [place] [phone] 10/10/2024 1:30 PM CDT Appointment Department of Radiology, [facility] in [place], [place] [address] [place] [address] Marisabel Carpenter APRN, C.N.P., D.N.P. [address] [place] [phone] 10/10/2024 2:45 PM CDT Appointment Department of Radiology, [facility], in [place], [place] [address] [place] [address] Marisabel Carpenter APRN C.N.PSuma, D.N.P. [address] [place] [phone] 10/11/2024 8:00 AM CDT Office Visit [facility] in [place], [place] [address] [place] [address] Marisabel Carpenter APRN, C.N.P., D.N.P. [address] [place] [phone] 10/11/2024 11:00 AM CDT Comprehensive Visit [facility] in [place], [place] [address] [place] [address] Sree Devlin M.D. [address] [place] [phone] 10/11/2024 1:00 PM CDT Comprehensive Visit Department of Otorhinolaryngology in [place], [place] [address] [place] [phone] Randal Urbano, P.A.-C., M.S. [address] [place] [phone] 10/11/2024 2:00 PM CDT Office Visit [facility] Transplantation and Clinical Regeneration in [place], [place] [address] [place] [address] Hiro Murillo P.A.-C. [address] [place] [phone] 10/11/2024 4:00 PM CDT Comprehensive Visit Department of Dermatology in [place], [place] [address] [place] [address] Parul Martinez M.D. [address] [place] [phone] 10/12/2024 8:00 AM CDT Telemedicine [facility] in [place], [place] [address] [place] [phone] Ervin Mckeon D.O. [address] [place] [phone] 11/01/2024 2:15 PM CDT Appointment Division of Pulmonary Medicine in [place], [place] [address] [place] [phone] Edgar Montgomery M.B.B.S., M.S. [address] [place] [phone] documented as of this encounter Procedures Procedure Name Priority Date/Time Associated Diagnosis Comments MA US GUIDE PLC NDL Routine 09/05/2024 4 :17 PM CDT Transplant Liver (HCC) Medication Therapy Retirement Not 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 Elevated Liver Function Test MA BX NDL LIVER PERC Routine 09/05/2024 4:17 PM CDT Transplant Liver (HCC) Medication Therapy Warning Coordination Meteorologist Not 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 Elevated Liver Function Test SURGICAL PATHOLOGY Routine 09/05/2024 2: 31 PM CDT documented in this encounter Results * MA BX NDL LIVER PERC, MA US GUIDE PLC NDL (09/05/2024 4:17 PM [...] in an addendum. The patient's prior biopsy ([id number]) was reviewed, and this current study demonstrates slightly worsened findings, with interval development of centrilobular injury. Digital imaging was used in the diagnostic assessment of this case. 09/06/2024 2:00 PM CDT DTL Tissue 09/05/2024 2:31 PM CDT 09/05/2024 3:08 PM CDT us Hiro Murillo P.A.-C. LAB SURG PATH ORDERABLES Edited Result - Final [facility] [address] [place] [address], [facility] DTL [address] [place] [address] documented in this encounter Visit Diagnoses Diagnosis Transplant Liver (HCC) Medication Therapy Warning Coordination Meteorologist Not 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 Elevated Liver Function Test Acute [...] 1348 (Given - Provid er: Catia Perez RSumaNSuma) LORazepam tablet 1 mg (Ativan) 1 mg, [...] documented as of this encounter Care Teams Roaster Operator Relationship Specialty Start Date End Date Ana Red MPAS, P.A.-C. [address] [place] [address] ADI PANIAGUA [phone] PCP - General Internal Medicine 12/01/21 [facility] 08/25/21 documented as of this encounter
--- OUTSIDE RECORDS SUMMARY | 2024-09-14 01:31 | XMS_ITS | Encounter Summary ---
Author Organization [facility] Address [address] [place] [address] Care Team Providers Care Associate Engineer Name Role Phone Ana Red P.A.-C. Primary Care Pro vider Encounter Details Date Type Department Care Team (Late st Contact Info) Description 08/27/2024 8:00 AM CDT Infusion Department of Infusion Therapy in [place], [place] [address] [place] [phone] Xu Joel Jr., M.D. [address] [place] [phone] Rejection Graft Acute (Primary Dx); Abdominal Pain [...] about a year or so. [facility] Utilities Answer Date Recorded [...] How often do you attend chur or hinduism services? Patient declined 02/10/2022 Do you belong [...] Answer Date Recorded PHQ-2 Score 0 08/11/2024 [facility] Occupat ional Health - Occupational Stress [...] a [facility] place to live 08/22/2024 Education Answer Date Recorded What is the highest level of school you have completed or the highest degree you have received? Associate degree: occupational, technical, or vocational program 07/16/2021 Comments No Sex and Gender Information Value Date Recorded Sex Assigned at Female 04/12/2021 7:39 PM BRAZING MACHINE OPERATOR HELPER Legal Sex Female 7:53 PM BRAZING MACHINE OPERATOR HELPER Gender Identity Female 04/12/2021 7:39 PM BRAZING MACHINE OPERATOR HELPER Sexual Orientation Straight 04/12/2021 7: 39 PM BRAZING MACHINE OPERATOR HELPER documented as of this encounter Last [...] 11:00 AM CDT Appointment Department of Radiology, [facility] in [place], [place] [address] [place] [address] Noreen Ansari P.A.-C., M.S. [address] [place] [phone] Jesus Figueroa M.D. [address] [place] [phone] 09/14/2024 4:00 PM CDT Telemedicine Division of Pulmonary Medicine in [place], [place] [address] [place] [address] Ben Dickson, OFFICE TECHNOLOGY INSTRUCTOR, C.N.P. [address] [place] [phone] 09/15/2024 8:00 AM CDT Lab Department of Laboratory Medicine and Pathology, [facility] in [place], [place] [address] [place] [address] Edgar Montgomery M.B.B.S., M.S. [address] [place] [phone] 09/15/2024 10:00 AM CDT Comprehensive Visit Ramirez Landon [facility] for Transplantation and Clinical Regeneration in [place], [place] [address] [place] [address] Edgar Montgomery M.B.B.S., M.S. [address] [place] [phone] Miriam Strickland M.D. [address] [place] [phone] 09/15/2024 11:00 AM CDT Office Visit Ramirez Navarrete [facility] for Transplantation and Clinical Regeneration in [place], [place] [address] [place] [address] Edgar Montgomery M.B.B.S., M.S. [address] [place] [phone] Discharge Disposition: Home or Self Care 09/15/2024 1:45 PM CDT Infusion Department of Infusion Therapy in [place], [place] [address] [place] [address] Juan Pete M.D. [address] [place] [phone] 09/18/2024 2:15 PM CDT [facility] [place] [place] [address] [place] [address] Edgar Montgomery M.B.B.S., M.S. [address] [place] [phone] 09/20/2024 3:00 PM CDT Comprehensive Visit Ramirez Navarrete [facility] Transplantation and Clinical Regeneration in [place], [place] [address] [place] [address] Catia Quintana APRN, C.N.P. [address] [place] [phone] 10/03/2024 9:00 AM CDT [facility] [place] [place] [address] [place] [address] Marisabel Carpenter APRN, C.N.P., D.N.P. [address] [place] [phone] 10/05/2024 12:00 PM CDT Appointment Division of Pulmonary Medicine in [place], [place] [address] [place] [address] Edgar Montgomery M.B.B.S., M.S. [address] [place] [phone] 10/10/2024 7:50 AM CDT Lab Department of Laboratory Medicine and Pathology, [facility] in [place], [place] [address] [place] [address] Marisabel Carpenter APRN, C.N.P., D.N.P. [address] [place] [phone] 10/10/2024 8:00 AM CDT Lab Department of Laboratory Medicine and Pathology, [facility] in [place], [place] [address] [place] [address] Marisabel Carpenter APRN, C.N.P., D.N.P. [address] [place] [phone] 10/10/2024 8:30 AM CDT Nurse Only [facility] in [place], [place] [address] [place] [address] Marisabel Carpenter APRN, C.N.P., D.N.P. [address] [place] [phone] 10/10/2024 9:20 AM CDT Appointment Department of Radiology, [facility] in [place], [place] [address] [place] [address] Marisabel Carpenter APRN, C.N.P., D.N.P. [address] [place] [address] 10/10/2024 9:45 AM CDT [facility] [place], [place] [address] [place] [address] Marisabel Carpenter APRN, C.N.P., D.N.P. [address] [place] [phone] 10/10/2024 1:30 PM CDT Appointment Department of Radiology, [facility] in [place], [place] [address] [place] [address] Marisabel Carpenter APRN, Katrin.N.PSuma, D.N.P. [address] [place] [phone] 10/10/2024 2:45 PM CDT Appointment Department of Radiology, [facility] in [place], [place] [address] [place] [address] Marisabel Carpenter APRN, C.N.PSuma, D.N.P. [address] [place] [phone] 10/11/2024 8:00 AM CDT [facility] in [place], [place] [address] [place] [address] Marisabel Carpenter APRN, C.N.P., D.N.P. [address] [place] [phone] 10/11/2024 11:00 AM CDT [facility] in [place], [place] [address] [place] [phone] Sree Devlin M.D. [address] [place] [phone] 10/11/2024 1:00 PM CDT Comprehensive Visit Department of Otorhinolaryngology in [place], [place] [address] [place] [address] Randal Urbano P.A.-C., M.S. [address] [place] [phone] 10/11/2024 2:00 PM CDT [facility] in [place], [place] [address] [place] [phone] Hiro Murillo P.A.-C. [address] [place] [phone] 10/11/2024 4:00 PM CDT Comprehensive Visit Department of Dermatology in [place], [place] [address] [place] [phone] Parul Martinez M.D. [address] [place] [phone] 10/12/2024 8:00 AM CDT Telemedicine Ramirez [facility] in [place], [place] [address] [place] [phone] Ervin Mckeon D.O. [address] [place] [phone] 11/01/2024 2:15 PM CDT Appointment Division of Pulmonary Medicine in [place], [place] [address] [place] [phone] Edgar Montgomery M.B.B.S., M.S. [address] [place] [phone] documented as of this encounter Visit Diagnoses [...] documented as of this encounter Care Teams Associate Engineer Relationship Specialty Start Date End Date Ana Red MPAS, P.A.-C. [address] [place] [address] BAYADI WRIGHT [phone] PCP - General Internal Medicine 12/01/21 [facility] [place] [facility] 08/25/21 documented as of this encounter
--- OUTSIDE RECORDS SUMMARY | 2024-09-14 01:31 | XMS_ITS | Encounter Summary ---
Author Organization [facility] Address [address] [place] [id number] Care Team Providers Care Clean Room Technician Name Role Phone Ana Red P.A.-C. Primary Care Pro vider Reason for Visit * Transplant (Routine) - Closed Specialty Diagnoses / Procedures Referred By Meir lara Referred To Contact Transplant Diagnoses Transplant Liver (HCC) Medication Therapy Skilled Nursing Not 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 Xu Joel Jr., M.D. [address] [place] [phone] Phone: tel: fax: [facility] Referral ID Status Reason Start Date Expiration Date Visits Re quested Visits Authorized [id number] Closed 08/25/2024 02/24/2026 1 1 Encounter Details Date Type Department Care Team (Latest Contact Info) Description 08/31/2024 8:30 AM CDT [facility] [place], [place] [address] [place] [phone] Xu Joel Jr., M.D. [address] [place] [address] [phone] Migue Escobar M.D. 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 CT CT Job ID: [id number] documented in this encounter Plan of Treatment Upcoming Encounters Date Type Department Care Team (Latest Contact Info) Description 09/14/2024 11:00 AM CDT Appointment Department of Radiology, [facility] in [place], [place] [address] [place] [phone] Noreen Ansari P.A.-C., M.S. [address] [place] [phone] Jesus Figueroa M.D. [address] [place] [phone] 09/14/2024 4:00 PM CDT Telemedicine Division of Pulmonary Medicine in [place], [place] [address] [place] [phone] Ben Dickson, TRAIN CREW MEMBER, C.N.P. [address] [place] [phone] 09/15/2024 8:00 AM CDT Lab Department of Laboratory Medicine and Pathology, [facility] in [place], [place] [address] [place] [phone] Edgar Montgomery M.B.B.S., M.S. [address] [place] [phone] 09/15/2024 10:00 AM CDT Comprehensive Visit Ramirez Landon diaz [facility] in [place], [place] [address] [place] [phone] Edgar Montgomery M.B.B.S., M.S. [address] [place] [phone] Miriam Strickland M.D. [address] [place] [phone] 09/15/2024 11:00 AM CDT Office Visit Ramirez diaz [facility] in [place], [place] [address] [place] [address] Edgar Montgomery M.B.B.S., M.S. [address] [place] [phone] Discharge Disposition: Home or Self Care 09/15/2024 1:45 PM CDT Infusion Department of Infusion Therapy in [place], [place] [address] [place] [phone] Juan Pete M.D. [address] [place] [phone] 09/18/2024 2:15 PM CDT Hospital Encounter Department of Radiology, [facility] in [place], [place] [address] [place] [address] Edgar Montgomery M.B.B.S., M.S. [address] [place] [phone] 09/20/2024 3:00 PM CDT Comprehensive [facility] in [place], [place] [address] [place] [phone] Catia Quintana APRN, C.N.P. [address] [place] [phone] 10/03/2024 9:00 AM CDT Appointment Department of Radiology, [facility], in [place], [place] [address] [place] [address] Marisabel Carpenter APRN C.N.PSuma, D.N.P. [address] [place] [phone] 10/05/2024 12:00 PM CDT Appointment Division of Pulmonary Medicine in [place], [place] [address] [place] [address] Edgar Montgomery M.B.BSumaS., M.S. [address] [place] [phone] 10/10/2024 7:50 AM CDT Lab Department of Laboratory Medicine and Pathology, [place], [place] [address] [place] [address] Marisabel Carpenter APRN, C.N.PSuma, D.N.P. [address] [place] [phone] 10/10/2024 8:00 AM CDT Lab Department of Laboratory Medicine and Pathology, [facility] in [place], [place] [address] [place] [address] Marisabel Carpenter APRN, C.N.PSuma, D.N.P. [address] [place] [phone] 10/10/2024 8:30 AM CDT Nurse Only Ramirez [facility] in [place], [place] [address] [place] [address] Marisabel Carpenter APRN, C.N.P., D.N.P. [address] [place] [phone] 10/10/2024 9:20 AM CDT Appointment Department of Radiology, [facility] in [place], [place] [address] [place] [address] Marisabel Carpenter APRN, Katrin.N.PSuma, D.N.P. [address] [place] [phone] 10/10/2024 9:45 AM CDT Appointment Department of Laboratory Medicine and Pathology, [facility] in [place], [place] [address] [place] [address] Marisabel Carpenter APRN, C.N.PSuma, D.N.P. [address] [place] [phone] 10/10/2024 1:30 PM CDT Appointment Department of Radiology, [facility] in [place], [place] [address] [place] [address] Marisabel Carpenter APRN, Katrin.N.PSuma, D.N.P. [address] [place] [phone] 10/10/2024 2:45 PM CDT Appointment Department of Radiology, [facility] in [place], [place] [address] [place] [address] Marisabel Carpenter APRN, Katrin.N.PSuma, D.N.P. [address] [place] [phone] 10/11/2024 8:00 AM CDT [facility] in [place], [place] [address] [place] [address] Marisabel Carpenter APRN, C.N.PSuma, D.N.P. [address] [place] [phone] 10/11/2024 11:00 AM CDT Comprehensive [facility] in [place], [place] [address] [place] [address] Sree Devlin M.D. [address] [place] [phone] 10/11/2024 1:00 PM CDT Comprehensive Visit Department of Otorhinolaryngology in [place], [place] [address] [place] [address] Randal Urbano P.A.-C., M.S. [address] [place] [phone] 10/11/2024 2:00 PM CDT Office [facility] in [place], [place] [address] [place] [address] Hiro Murillo P.A.-C. [address] [place] [phone] 10/11/2024 4:00 PM CDT Comprehensive Visit Department of Dermatology in [place], [place] [address] [place] [address] Parul Martinez M.D. [address] [place] [phone] 10/12/2024 8:[address] in [place], [place] [address] [place] [address] Ervin Mckeon D.O. [address] [place] [phone] 11/01/2024 2:15 PM CDT Appointment Division of Pulmonary Medicine in [place], [place] [address] [place] [address] Edgar Montgomery M.BSumaB.S., M.S. [address] [place] [address] documented as of this encounter Visit Diagnoses Diagnosis Transplant Liver (HCC) Medication Therapy Skilled Nursing Not 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 Chronic Pain Syndrome documented in this encounter Additional Health Concerns Infection Onset Date Last Indicated Resolved Time Protective Environment 10/10/2022 10/10/2022 Assessment Noted Time PHQ-9 Depression Total Score: 4 08/12/19 25 3:31 PM CDT documented as of this encounter Care Teams Clean Room Technician Relationship Specialty Start Date End Date Ana Red MPAS, P.A.-C. [address] [place] [address] [phone] PCP - General Internal Medicine 12/01/21 [facility] [place] [facility] 08/25/21 documented as of this encounter
--- OUTSIDE RECORDS SUMMARY | 2024-09-14 01:31 | XMS_ITS | Encounter Summary ---
Author Organization [facility] Address [address] [place] [address] Care Team Providers Care Cloth Mender Name Role Phone Ana Red P.A.-C. Primary Care Pro vider Reason for Visit * Reason Onset Date Comments Post Hospital Follow-up 08/28/2024 Encounter Details Date Type Department Care Team (Latest Contact Info) Description 08/28/2024 Clinical Communication Department of Community Internal Medicine in [place], [place] [address] [place] [address] Xuan Malcolm R.N. [address] [phone] Post Hospital Follow-up Social History Tobacco Use Types Packs/Day Years Used Date Smoking Tobacco: Former Cigarettes 1 - 10/12/2021 Passive Smoke Exposure: Never Smokeless Tobacco: Never Comments:Smoked cigarettes f rom age 18-30 about Alcohol Use Standard Drinks/Week Comments Never 0 (1 standard drink = 0.6 oz pure alcohol) Havent had any alcohol in about a year or so. [facility] Utilities Answer Date Recorded In the [...] How often do you attend chur or samaritan services? 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 - 08/28/2024 2:04 PM CDT SUBJECTIVE REASON FOR CALL Post-Hospital follow-up phone call with . Admission Date: 08/21/24 Discharge Date: 08/25/24, [facility] Discharge Diagnosis: Abdominal Pain Active Problems: Nausea And Vomiting General Health Notes today that she is feeling better since discharged from the hospital. Concerns/questions: Patient has no questions or concerns. Symptom Review states that Christelle wasn't feeling well yesterday because of the steroid shot she received at [facility] for her liver that elevated her blood sugars. The elevated glucose made her feel crappy. He reports that she started feeling better this morning once she gave extra insulin and her blood sugars started coming down. Activities of Daily Living Patient is independent with activities of daily living. Has the patient had a fall since discharge: no. Has ambulation changed since hospitalization: no. Difficulty ambulating: no. The patient lives with spouse. Patient identified if needing assistance, she could depend on . Wounds/Incisions/Lines, Drains and Airways None Medication Status Current medication list was reviewed and updated as needed. Reports medication is self managed. Medications concerns: none. Medication compliance for current medications: yes. High Risk Medications Diabetic Medications: type: oral, insulin, and injection. Home Services Utilized The patient is not currently receiving home health services. Equipment/Supplies for Home Use None ordered Assessment/Plan Follow-up Appointment PCP Follow-up appointment scheduled: yes; scheduled on 09/01/24. The patient plans to go to the appointment and has no concerns about getting there. Specialty Follow-up is n/a. Recommendations Referral actions: none needed at this time. Additional recommendations: home care instructions reinforced or provided and appointment ordered/scheduled as per TCM guidelines. [...] 11:00 AM CDT Appointment Department of Radiology, [facility], in [place], [place] [address] [place] [address] Noreen Ansari P.A.-C., M.S. [address] [place] [phone] Jesus Figueroa M.D. [address] [place] [phone] 09/14/2024 4:00 PM CDT Telemedicine Division of Pulmonary Medicine in [place], [place] [address] [place] [address] Ben Dickson APRN, C.N.P. [address] [place] [phone] 09/15/2024 8:00 AM CDT Lab Department of Laboratory Medicine and Pathology, [facility] in [place], [place] [address] [place] [phone] Edgar Montgomery M.B.B.S., M.S. [address] [place] [phone] 09/15/2024 10:00 AM CDT Comprehensive Visit [facility] for Transplantation and Clinical Regeneration in [place], [place] [address] [place] [phone] Edgar Montgomery M.B.B.S., M.S. [address] [place] [phone] Miriam Strickland M.D. [address] [place] [phone] 09/15/2024 11:00 AM CDT Office Visit [facility] Trans[facility] and Clinical Regeneration in [place], [place] [address] [place] [address] Edgar Montgomery M.B.B.S., M.S. [address] [place] [phone] Discharge Disposition: Home or Self Care 09/15/2024 1:45 PM CDT Infusion Department of Infusion Therapy in [place], [place] [address] [place] [address] Juan Pete M.D. [address] [place] [phone] 09/18/2024 2:15 PM CDT Hospital Encounter Department of Radiology, [facility] in [place], [place] [address] [place] [address] Edgar Montgomery M.B.B.S., M.S. [address] [place] [phone] 09/20/2024 3:00 PM CDT Comprehensive Visit [facility] in [place], [place] [address] [place] [address] Catia Quintana APRN, C.N.P. [address] [place] [phone] 10/03/2024 9:00 AM CDT Appointment Department of Radiology, [facility] in [place], [place] [address] [place] [address] Marisabel Carpenter APRN, C.N.P., D.N.P. [address] [place] [phone] 10/05/2024 12:00 PM CDT Appointment Division of Pulmonary Medicine in [place], [place] [address] [place] [phone] Edgar Montgomery M.B.B.S., M.S. [address] [place] [phone] 10/10/2024 7:50 AM CDT Lab Department of Laboratory Medicine and Pathology, [facility] in [place], [place] [address] [place] [address] Marisabel Carpenter APRN, C.N.P., D.N.P. [address] [place] [phone] 10/10/2024 8:00 AM CDT Lab Department of Laboratory Medicine and Pathology, [facility] in [place], [place] [address] [place] [address] Marisabel Carpenter APRN, C.N.P., D.N.P. [address] [place] [phone] 10/10/2024 8:30 AM CDT Nurse Only Ramirez Nguyen [facility] in [place], [place] [address] [place] [address] Marisabel Carpenter APRN, C.N.P., D.N.P. [address] [place] [phone] 10/10/2024 9:20 AM CDT Appointment Department of Radiology, [facility] in [place], [place] [address] [place] [address] Marisabel Carpenter APRN, C.N.P., D.N.P. [address] [place] [phone] 10/10/2024 9:45 AM CDT Appointment Department of Laboratory Medicine and Pathology, [facility] in [place], [place] [address] [place] [address] Marisabel Carpenter APRN, C.N.P., D.N.P. [address] [place] [phone] 10/10/2024 1:30 PM CDT Appointment Department of Radiology, [facility] in [place], [place] [address] [place] [address] Marisabel Carpenter APRN C.N.PSuma, D.N.P. [address] [place] [phone] 10/10/2024 2:45 PM CDT Appointment Department of Radiology, [facility], in [place], [place] [address] [place] [address] Marisabel Carpenter APRN, C.N.PSuma, D.N.P. [address] [place] [phone] 10/11/2024 8:00 AM CDT Office Visit [facility] Trans[facility] and Clinical Regeneration in [place], [place] [address] [place] [address] Marisabel Carpenter APRN, C.N.PSuma, D.N.P. [address] [place] [phone] 10/11/2024 11:00 AM CDT Comprehensive Visit [facility] and Clinical Regeneration in [place], [place] [address] [place] [address] Sree Devlin M.D. [address] [place] [phone] 10/11/2024 1:00 PM CDT Comprehensive Visit Department of Otorhinolaryngology in [place], [place] [address] [place] [address] Randal Urbano P.A.-C., M.S. [address] [place] [phone] 10/11/2024 2:00 PM CDT Office Visit [facility] Transplantation and Clinical Regeneration in [place], [place] [address] [place] [phone] Hiro Murillo P.A.-C. [address] [place] [phone] 10/11/2024 4:00 PM CDT Comprehensive Visit Department of Dermatology in [place], [place] [address] [place] [phone] Parul Martinez M.D. [address] [place] [phone] 10/12/2024 8:00 AM CDT Telemedicine [facility] Transplantation and Clinical Regeneration in [place], [place] [address] [place] [phone] Ervin Mckeon D.O. [address] [place] [phone] 11/01/2024 2:15 PM CDT Appointment Division of Pulmonary Medicine in [place], [place] [address] [place] [phone] Edgar Montgomery M.B.B.S., M.S. [address] [place] [phone] documented as of this encounter Visit Diagnoses Not on filedocumented in this encounter Additional Health Concerns Infection Onset Date Last Indicated Resolved Time Protective Environment 10/10/2022 10/10/2022 Assessment Noted Time PHQ-9 Depression Total Score: 4 08/12/19 25 3:31 PM CDT documented as of this encounter Care Teams Cloth Mender Relationship Specialty Start Date End Date Ana Red MPAS, P.A.-C. [address] [place] [address], ADI [phone] PCP - General Internal Medicine 12/01/21 [facility] [place] [facility] 08/25/21 documented as of this encounter
--- OUTSIDE RECORDS SUMMARY | 2024-09-14 01:31 | XMS_ITS | Encounter Summary ---
Author Organization [facility] Address [address] [place] [address] Care Team Providers Care Scanner Supervisor Name Role Phone Ana Red P.A.-C. Primary Care Pro vider Encounter Details Date Type Department Care Team (Late st Contact Info) Description 08/31/2024 Orders Only Division of Endocrinology in [place], [place] [address] [place] [phone] Catia Quintana, REMARKETING REP, C.N.P. [address] [place] [phone] Diabetes Mellitus Due To Underlying Condition With Ketoacidosis Without Coma (HCC) (Primary Dx) Social History Tobacco Use Types Packs/Day Years Used Date Smoking Tobacco: Former Cigarettes 1 - 10/12/2021 Passive Smoke Exposure: Never Smokeless Tobacco: Never Comments:Smoked cigarettes f rom age 18-30 about Alcohol Use Standard Drinks/Week Comments Never 0 (1 standard drink = 0.6 oz pure alcohol) Havent had any alcohol in about a year or so. [facility] Utilities Answer Date Recorded In the past 12 months has e [employer], gas, oil, or water [employer] threatened to shut off services in your [...] How often do you attend chur or worship services? Patient declined 02/10/2022 Do you belong [...] Answer Date Recorded PHQ-2 Score 0 08/11/2024 [facility] of Occupat ional Health - Occupational Stress [...] a [facility] place to live 08/22/2024 Education Answer Date Recorded What is the highest level of school you have completed or the highest degree you have received? Associate degree: occupational, technical, or vocational program 07/16/2021 Comments No Sex and Gender Information Value Date Recorded Sex Assigned at Female 04/12/2021 7:39 PM TECHNOLOGY METHODOLOGY CONSULTANT Legal Sex Female 7:53 PM TECHNOLOGY METHODOLOGY CONSULTANT Gender Identity Female 04/12/2021 7:39 PM TECHNOLOGY METHODOLOGY CONSULTANT Sexual Orientation Straight 04/12/2021 7: 39 PM TECHNOLOGY METHODOLOGY CONSULTANT documented as of this encounter Plan of Treatment Upcoming Encounters Date Type Department Care Team (Latest Contact Info) Description 09/14/2024 11:00 AM CDT Appointment Department of Radiology, [facility], in [place], [place] [address] [place] [address] Noreen Ansari P.A.-C., M.S. [address] [place] [address] Jesus Figueroa M.D. [address] [place] [phone] 09/14/2024 4:00 PM CDT Telemedicine Division of Pulmonary Medicine in [place], [place] [address] [place] [address] Ben Dickson APRN, C.N.P. [address] [place] [phone] 09/15/2024 8:00 AM CDT Lab Department of Laboratory Medicine and Pathology, [facility], in [place], [place] [address] [place] [address] Edgar Montgomery M.B.B.S., M.S. [address] [place] [phone] 09/15/2024 10:00 AM CDT Comprehensive Visit [facility] Transplantation and Clinical Regeneration in [place], [place] [address] [place] [address] Edgar Montgomery M.B.B.S., M.S. [address] [place] [phone] Miriam Strickland M.D. [address] [place] [phone] 09/15/2024 11:00 AM CDT Office Visit [facility] in [place], [place] [address] [place] [address] Edgar Montgomery M.B.B.S., M.S. [address] [place] [phone] Discharge Disposition: Home or Self Care 09/15/2024 1:45 PM CDT Infusion Department of Infusion Therapy in [place], [place] [address] [place] [address] Juan Pete M.D. [address] [place] [phone] 09/18/2024 2:15 PM CDT Hospital Encounter Department of Radiology, [facility] in [place], [place] [address] [place] [address] Edgar Montgomery M.B.B.S., M.S. [address] [place] [phone] 09/20/2024 3:00 PM CDT Comprehensive Visit [facility] in [place], [place] [address] [place] [address] Catia Quintana APRN, C.N.P. [address] [place] [phone] 10/03/2024 9:00 AM CDT Appointment Department of Radiology, [facility], in [place], [place] [address] [place] [address] Marisabel Carpenter APRN, C.N.P., D.N.P. [address] [place] [phone] 10/05/2024 12:00 PM CDT Appointment Division of Pulmonary Medicine in [place], [place] [address] [place] [address] Edgar Montgomery M.B.B.S., M.S. [address] [place] [phone] 10/10/2024 7:50 AM CDT Lab Department of Laboratory Medicine and Pathology, [facility] in [place], [place] [address] [place] [address] Marisabel Carpenter APRN, C.N.P., D.N.P. [address] [place] [phone] 10/10/2024 8:00 AM CDT Lab Department of Laboratory Medicine and Pathology, [facility] in [place], [place] [address] [place] [address] Marisabel Carpenter APRN, C.N.P., D.N.P. [address] [place] [phone] 10/10/2024 8:30 AM CDT Nurse Only Ramirez diaz [facility] for Transplantation and Clinical Regeneration in [place], [place] [address] [place] [address] Marisabel Carpenter APRN, C.N.P., D.N.P. [address] [place] [phone] 10/10/2024 9:20 AM CDT Appointment Department of Radiology, [facility] in [place], [place] [address] [place] [address] Marisabel Carpenter APRN, C.N.P., D.N.P. [address] [place] [phone] 10/10/2024 9:45 AM CDT Appointment Department of Laboratory Medicine and Pathology, [facility] in [place], [place] [address] [place] [address] Marisabel Carpenter APRN, C.N.PSuma, D.N.P. [address] [place] [address] 10/10/2024 1:30 PM CDT Appointment Department of Radiology, [facility] in [place], [place] [address] [place] [address] Marisabel Carpenter APRN, C.N.PSuma, D.N.P. [address] [place] [phone] 10/10/2024 2:45 PM CDT Appointment Department of Radiology, [facility] in [place], [place] [address] [place] [address] Marisabel Carpenter APRN, C.N.PSuma, D.N.P. [address] [place] [phone] 10/11/2024 8:00 AM CDT Office Visit [facility] in [place], [place] [address] [place] [address] Marisabel Carpenter APRN, C.N.PSuma, D.N.P. [address] [place] [phone] 10/11/2024 11:00 AM CDT Comprehensive Visit [facility] in [place], [place] [address] [place] [address] Sree Devlin M.D. [address] [place] [phone] 10/11/2024 1:00 PM CDT Comprehensive Visit Department of Otorhinolaryngology in [place], [place] [address] [place] [address] Randal rUbano P.A.-C., M.S. [address] [place] [phone] 10/11/2024 2:00 PM CDT Office Visit [facility] Transplantation and Clinical Regeneration in [place], [place] [address] [place] [phone] Hiro Murillo P.A.-C. [address] [place] [phone] 10/11/2024 4:00 PM CDT Comprehensive Visit Department of Dermatology in [place], [place] [address] [place] [phone] Parul Martinez M.D. [address] [place] [phone] 10/12/2024 8:00 AM CDT Telemedicine [facility] Transplantation and Clinical Regeneration in [place], [place] [address] [place] [phone] Ervin Mckeon D.O. [address] [place] [phone] 11/01/2024 2:15 PM CDT Appointment Division of Pulmonary Medicine in [place], [place] [address] [place] [phone] Edgar Montgomery M.B.B.S., M.S. [address] [place] [phone] documented as of this encounter Visit Diagnoses Diagnosis Diabetes Mellitus Due To Underlying Condition With Ketoacidosis Without Coma (HCC)- Primary documented in this encounter Additional Health Concerns Infection Onset Date Last Indicated Resolved Time Protective Environment 10/10/2022 10/10/2022 Assessment Noted Time PHQ-9 Depression Total Score: 4 08/12/19 25 3:31 PM CDT documented as of this encounter Care Teams Scanner Supervisor Relationship Specialty Start Date End Date Ana Red MPAS, P.A.-C. [address] [facility] [place] [phone] PCP - General Internal Medicine 12/01/21 [facility] [place] [facility] 08/25/21 documented as of this encounter
--- OUTSIDE RECORDS SUMMARY | 2024-09-14 01:31 | XMS_ITS | Encounter Summary ---
Author Organization [facility] Address [address] [place] [address] Care Team Providers Care Heating And Ventilating Tender Name Role Phone Ana Red P.A.-C. Primary Care Pro vider Reason for Visit * Reason Onset Date Comments Phone Contact 09/04/2024 Encounter Details Date Type Department Care Team (Latest Contact Info) Description 09/04/2024 Clinical Communication Ramirez Navarrete [facility] for Transplantation and Clinical Regeneration in [place], [place] [address] [place] [phone] August, Sony Mendez R.N. [address] [place] [phone] Phone Contact Social History Tobacco Use Types Packs/Day Years Used Date Smoking Tobacco: Former Cigarettes 1 - 10/12/2021 Passive Smoke Exposure: Never Smokeless Tobacco: Never Comments:Smoked cigarettes f rom age 18-30 about Alcohol Use Standard Drinks/Week Comments Never 0 (1 standard drink = 0.6 oz pure alcohol) Havent had any alcohol in about a year or so. [facility] Utilities Answer Date Recorded In the past 12 months has e [employer], gas, oil, or water [employer] threatened to shut off services in your [...] How often do you attend chur or sabianist services? Patient declined 02/10/2022 Do [...] Answer Date Recorded PHQ-2 Score 0 08/11/2024 [facility] of Occupat ional Health - Occupational [...] your living situation today? I have a [facility] place to live 08/22/2024 Education Answer Date Recorded What is the highest level of school you have completed or the highest degree you have received? Associate degree: occupational, technical, or vocational program 07/16/2021 Comments No Sex and Gender Information Value Date Recorded Sex Assigned at Female 04/12/2021 7:39 PM BOX SORTER Legal Sex Female 7:53 PM BOX SORTER Gender Identity Female 04/12/2021 7:39 PM BOX SORTER Sexual Orientation Straight 04/12/2021 7: 39 PM BOX SORTER documented as of this encounter Miscellaneous Notes * Telephone Encounter - Sony Carty R.N. - 09/04/2024 2:39 PM CDT She also sent POM, that I already responded too. There is a plan in place. documented in this encounter Plan of Treatment Upcoming Encounters Date Type Department Care Team (Latest Contact Info) Description 09/14/2024 11:00 AM CDT Appointment Department of Radiology, [facility], in [place], [place] [address] [place] [address] Noreen Ansari P.A.-C., M.S. [address] [place] [phone] Jesus Figueroa M.D. [address] [place] [phone] 09/14/2024 4:00 PM CDT Telemedicine Division of Pulmonary Medicine in [place], [place] [address] [place] [address] Ben Dickson APRN, C.N.P. [address] [place] [phone] 09/15/2024 8:00 AM CDT Lab Department of Laboratory Medicine and Pathology, [facility], in [place], [place] [address] [place] [address] Edgar Montgomery M.B.B.S., M.S. [address] [place] [phone] 09/15/2024 10:00 AM CDT Comprehensive Visit Ramirez diaz [facility] for Transplantation and Clinical Regeneration in [place], [place] [address] [place] [address] Edgar Montgomery M.B.B.S., M.S. [address] [place] [phone] Miriam Strickland M.D. [address] [place] [phone] 09/15/2024 11:00 AM CDT Office Visit [facility] for Transplantation and Clinical Regeneration in [place], [place] [address] [place] [address] Edgar Montgomery M.B.B.S., M.S. [address] [place] [phone] Discharge Disposition: Home or Self Care 09/15/2024 1:45 PM CDT Infusion Department of Infusion Therapy in [place], [place] [address] [place] [address] Juan Pete M.D. [address] [place] [phone] 09/18/2024 2:15 PM CDT Hospital Encounter Department of Radiology, [facility] in [place], [place] [address] [place] [phone] Edgar Montgomery M.B.B.S., M.S. [address] [place] [phone] 09/20/2024 3:00 PM CDT Comprehensive Visit [facility] for Transplantation and Clinical Regeneration in [place], [place] [address] [place] [phone] Catia Quintana APRN, C.N.P. [address] [place] [phone] 10/03/2024 9:00 AM CDT Appointment [place] [address] [place] [address] Marisabel Carpenter APRN, C.N.P., D.N.P. [address] [place] [phone] 10/05/2024 12:00 PM CDT Appointment Division of Pulmonary Medicine in [place], [place] [address] [place] [phone] Edgar Montgomery M.B.B.S., M.S. [address] [place] [phone] 10/10/2024 7:50 AM CDT Lab Department of Laboratory Medicine and Pathology, [place], [place] [address] [place] [address] Marisabel Carpenter APRN, C.N.P., D.N.P. [address] [place] [phone] 10/10/2024 8:00 AM CDT Lab Department of Laboratory Medicine and Pathology, [facility] in [place], [place] [address] [place] [address] Marisabel Carpenter APRN, C.N.P., D.N.P. [address] [place] [phone] 10/10/2024 8:30 AM CDT Nurse Only Ramirez diaz [facility] for Transplantation and Clinical Regeneration in [place], [place] [address] [place] [address] Marisabel Carpenter APRN, C.N.P., D.N.P. [address] [place] [phone] 10/10/2024 9:20 AM CDT Appointment Department of Radiology, [place], [place] [address] [place] [address] Marisabel Carpenter APRN, C.N.P., D.N.P. [address] [place], [place] [phone] 10/10/2024 9:45 AM CDT Appointment Department of Laboratory Medicine and Pathology, [facility] in [place], [place] [address] [place] [address] Marisabel Carpenter APRN, C.N.P., D.N.P. [address] [place] [phone] 10/10/2024 1:30 PM CDT Appointment Department of Radiology, [facility] in [place], [place] [address] [place] [address] Marisabel Carpenter APRN, C.N.P., D.N.P. [address] [place] [phone] 10/10/2024 2:45 PM CDT Appointment Department of Radiology, [facility] in [place], [place] [address] [place] [address] Marisabel Carpenter APRN, C.N.P., D.N.P. [address] [place] [phone] 10/11/2024 8:00 AM CDT Office Visit Ramirez diaz [facility] for Transplantation and Clinical Regeneration in [place], [place] [address] [place] [address] Marisabel Carpenter APRN, C.N.P., D.N.P. [address] [place] [phone] 10/11/2024 11:00 AM CDT Comprehensive Visit Ramirez Llanes emily [facility] for Transplantation and Clinical Regeneration in [place], [place] [address] [place] [address] Sree Devlin M.D. [address] [place] [phone] 10/11/2024 1:00 PM CDT Comprehensive Visit Department of Otorhinolaryngology in [place], [place] [address] [place], [place] [phone] Randal Urbano P.A.-C., M.S. [address] [place] [phone] 10/11/2024 2:00 PM CDT Office Visit [facility] for Transplantation and Clinical Regeneration in [place], [place] [address] [place] [phone] Hiro Murillo P.A.-C. [address] [place] [phone] 10/11/2024 4:00 PM CDT Comprehensive Visit Department of Dermatology in [place], [place] [address] [place] [phone] Parul Martinez M.D. [address] [place] [phone] 10/12/2024 8:00 AM CDT Telemedicine [facility] Transplantation and Clinical Regeneration in [place], [place] [address] [place] [phone] Ervin Mckeon D.O. [address] [place] [phone] 11/01/2024 2:15 PM CDT Appointment Division of Pulmonary Medicine in [address] [phone] Edgar Montgomery M.B.B.S., M.S. [address] [place] [phone] documented as of this encounter Visit Diagnoses Not on filedocumented in this encounter Additional Health Concerns Infection Onset Date Last Indicated Resolved Time Protective Environment 10/10/2022 10/10/2022 Assessment Noted Time PHQ-9 Depression Total Score: 4 08/12/19 25 3:31 PM CDT documented as of this encounter Care Teams Heating And Ventilating Tender Relationship Specialty Start Date End Date Ana Red MPAS, P.A.-C. 300 [facility] ADI PANIAGUA [phone] PCP - General Internal Medicine 12/01/21 [facility] [place] [facility] 08/25/21 documented as of this encounter
--- OUTSIDE RECORDS SUMMARY | 2024-09-14 01:31 | XMS_ITS | Encounter Summary ---
Author Organization [facility] Address [address] [place] [address] Care Team Providers Care Aircraft Launch And Recovery Technician Name Role Phone Ana Red P.A.-C. Primary Care Pro vider Reason for Referral * Outpatient (Routine) - Closed Specialty Diagnoses / Procedures Referred By Meir lara Referred To Contact Diagnoses Transplant Liver (HCC) Medication Therapy Business Specialist Not 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 Elevated Liver Function Test Procedures TXP liver biopsy Migue Escobar M.D. 200 [place] [address] Phone: tel: fax: [facility] Referral ID Status Reason Start Date Expiration Date Visits Re quested Visits Authorized [id number] Closed 08/31/2024 12/01/2025 1 1 * Transplant (Routine) - Closed Specialty Diagnoses / Procedures Referred By Meir lara Referred To Contact Transplant Diagnoses Transplant Liver (HCC) Medication Therapy Group Home Not 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 Elevated Liver Function Test Migue Escobar M.D. [address] [place] [phone] Phone: tel: fax: [facility] Referral ID Status Reason Start Date Expiration Date Visits Re quested Visits Authorized [id number] Closed 08/31/2024 03/02/2026 1 1 Encounter Details Date Type Department Care Team (Late st Contact Info) Description 08/31/2024 Orders Only Ramirez Nguyen [facility] in [place], [place] [address] [place] [address] Nola Whipple R.N., C.C.T.C. [address] [place] [address] Transplant Liver (HCC) (Primary Dx); Medication Therapy Group Home Not 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; Elevated Liver Function Test Social History Tobacco Use Types Packs/Day Years Used Date Smoking Tobacco: Former Cigarettes 1 - 10/12/2021 Passive Smoke Exposure: Never Smokeless Tobacco: Never Comments:Smoked cigarettes f rom age 18-30 about Alcohol Use Standard Drinks/Week Comments Never 0 (1 standard drink = 0.6 oz pure alcohol) Havent had any alcohol in about a year or so. [facility] [employer] [employer] Answer Date Recorded In the past 12 months has [employer], gas, oil, or water [employer] threatened to shut off services in your [...] often do you attend chur ch or quaker services? Patient declined 02/10/2022 Do [...] Answer Date Recorded PHQ-2 Score 0 08/11/2024 [facility] of Occupat ional Health - [...] situation today? I have a [facility] place to live 08/22/2024 Education Answer Date Recorded What is the highest level of school you have completed or the highest degree you have received? Associate degree: occupational, technical, or vocational program 07/16/2021 Comments No Sex and Gender Information Value Date Recorded Sex Assigned at Female 04/12/2021 7:39 PM HOT TAMALE MAN Legal Sex Female 7:53 PM HOT TAMALE MAN Gender Identity Female 04/12/2021 7:39 PM HOT TAMALE MAN Sexual Orientation Straight 04/12/2021 7: 39 PM HOT TAMALE MAN documented as of this encounter Plan of Treatment Upcoming Encounters Date Type Department Care Team (Latest Contact Info) Description 09/14/2024 11:00 AM CDT Appointment Department of Radiology, [facility], in [place], [place] [address] [place] [phone] Noreen Ansari, Christo.-C., M.S. [address] [place] [phone] Jesus Figueroa M.D. [address] [place] [phone] 09/14/2024 4:00 PM CDT Telemedicine Division of Pulmonary Medicine in [place], [place] [address] [place] [phone] Ben Dickson APRN, C.N.P. [address] [place] [phone] 09/15/2024 8:00 AM CDT Lab Department of Laboratory Medicine and Pathology, [facility], in [place], [place] [address] [place] [address] Edgar Montgomery M.B.BSumaS., M.S. [address] [place] [phone] 09/15/2024 10:00 AM CDT Comprehensive Visit [facility] for Transplantation and Clinical Regeneration in [place], [place] [address] [place] [address] Edgar Montgomery M.B.B.SSuma, M.S. [address] [place] [phone] Miriam Strickland M.D. [address] [place] [phone] 09/15/2024 11:00 AM CDT Office Visit [facility] Transplantation and Clinical Regeneration in [place], [place] [address] [place] [address] Edgar Montgomery M.B.B.S., M.S. [address] [place] [phone] Discharge Disposition: Home or Self Care 09/15/2024 1:45 PM CDT Infusion Department of Infusion Therapy in [place], [place] [address] [place] [phone] Juan Pete M.D. [address] [place] [phone] 09/18/2024 2:15 PM CDT Hospital Encounter Department of Radiology, [facility], in [place], [place] [address] [place] [address] Edgar Montgomery M.B.B.S., M.S. [address] [place] [phone] 09/20/2024 3:00 PM CDT [facility] Visit [facility] in [place], [place] [address] [place] [address] Catia Quintana APRN, C.N.P. [address] [place] [phone] 10/03/2024 9:00 AM CDT Appointment Department of Radiology, [facility] in [place], [place] [address] [place] [address] Marisabel Carpenter APRN, C.N.P., D.N.P. [address] [place] [phone] 10/05/2024 12:00 PM CDT Appointment Division of Pulmonary Medicine in [place], [place] [address] [place] [address] Edgar Montgomery M.B.B.S., M.S. [address] [place] [phone] 10/10/2024 7:50 AM CDT Lab Department of Laboratory Medicine and Pathology, [facility] in [place], [place] [address] [place] [address] Marisabel Carpenter APRN, C.N.P., D.N.P. [address] [place] [phone] 10/10/2024 8:00 AM CDT Lab Department of Laboratory Medicine and Pathology, [facility] in [place], [place] [address] [place] [address] Marisabel Carpenter APRN, C.N.P., D.N.P. [address] [place] [address] 10/10/2024 8:30 AM CDT Nurse Only Ramirez diaz [facility] for Transplantation and Clinical Regeneration in [place], [place] [address] [place] [address] Marisabel Carpenter APRN, C.N.P., D.N.P. [address] [place] [address] 10/10/2024 9:20 AM CDT Appointment Department of Radiology, [facility] in [place], [place] [address] [place] [address] Marisabel Carpenter APRN, Katrin.N.PSuma, D.N.P. [address] [place] [phone] 10/10/2024 9:45 AM CDT Appointment Department of Laboratory Medicine and Pathology, [facility] in [place], [place] [address] [place] [address] Marisabel Carpenter APRN, C.N.PSuma, D.N.P. [address] [place] [phone] 10/10/2024 1:30 PM CDT Appointment Department of Radiology, [facility] in [place], [place] [address] [place] [address] Marisabel Carpenter APRN, C.N.P., D.N.P. [address] [place] [phone] 10/10/2024 2:45 PM CDT Appointment Department of Radiology, [facility], in [place], [place] [address] [place] [address] Marisabel Carpenter APRN C.N.PSuma, D.N.P. [address] [place] [phone] 10/11/2024 8:00 AM CDT Office Visit [facility] for Transplantation and Clinical Regeneration in [place], [place] [address] [place] [address] Marisabel Carpenter APRN, C.NSumaPSuma, D.N.P. [address] [place] [phone] 10/11/2024 11:00 AM CDT Comprehensive Visit [facility] Transplantation and Clinical Regeneration in [place], [place] [address] [place] [phone] Sree Devlin M.D. [address] [place] [phone] 10/11/2024 1:00 PM CDT Comprehensive Visit Department of Otorhinolaryngology in [place], [place] [address] [place] [phone] Randal Urbano, P.A.-C., M.S. [address] [place] [phone] 10/11/2024 2:00 PM CDT Office Visit [facility] for Transplantation and Clinical Regeneration in [place], [place] [address] [place] [phone] Hiro Murillo P.A.-C. [address] [place] [phone] 10/11/2024 4:00 PM CDT Comprehensive Visit Department of Dermatology in [place], [place] [address] [place] [phone] Parul Martinez M.D. [address] [place] [phone] 10/12/2024 8:00 AM CDT Telemedicine Ramirez Navarrete [facility] for Transplantation and Clinical Regeneration in [place], [place] [address] [place] [phone] Ervin Mckeon D.O. [address] [place] [phone] 11/01/2024 2:15 PM CDT Appointment Division of Pulmonary Medicine in [place], [place] [address] [place] [phone] Edgar Montgomery M.B.B.S., M.S. [address] [place] [phone] Scheduled Referrals Name Type Priority Associated Diagnoses Order Schedule Transplant Liver office visit (clinic) Outpatient Referral Routine Transplant Liver (HCC) Medication Therapy Business Specialist Not 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 Elevated Liver Function Test Expected: 09/05/2024, Expires: 12/01/2025 documented as of this encounter Results * MS BX NDL LIVER PERC, MS US GUIDE PLC NDL (09/05/2024 4:17 PM CDT) Narrative MMODAL - 09/05/2024 4:17 PM CDT Hiro Murillo P.A.-C. 09/05/2024 4:20 PM TXP liver biopsy Performed by: Hiro Murillo PSumaASuma-Katrin. Authorized by: Migue Escobar M.D. PROCEDURE DETAILS [...] M.D. PROCEDURE/MINOR SURGICAL OR DERABLES Final Result Performing Organization Address City/State/[facility] Co de Phone Number MMODAL NA * Prothrombin Time (PT) (09/05/2024 11:27 AM CDT) Prothrombin Time, P 10.1 9.4 - 12.5 sec 09/05/2024 12:00 PM CDT DTL INR 0.9 0.9 - 1.1 09/05/2024 12:00 PM CDT DTL Comment: ----ADDITIONAL INFORMATION---- Standard intensity warfarin therapeutic range: 2.0 to 3.0 High intensity warfarin therapeutic range: 2.5 to 3.5 Blood (Blood, Venous) 09/05/2024 11:27 AM CDT 09/05/2024 11:36 AM CDT us Migue Escobar M.D. LAB BLOOD ADD-ON Final Resu lt [facility] [address] [place] [address], [place] [facility]St[facility] Laboratories[facility] [address] [place] [address] documented in this encounter Visit Diagnoses Diagnosis Transplant Liver (HCC)- Primary Medication Therapy Business Specialist Not 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 Elevated Liver Function Test Transplant Liver (HCC) Medication Therapy Group Home Not 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 Elevated Liver Function Test Acute Abdomen documented in this encounter Additional Health Concerns Infection Onset Date Last Indicated Resolved Time Protective Environment 10/10/2022 10/10/2022 Assessment Noted Time PHQ-9 Depression Total Score: 4 08/12/19 25 3:31 PM CDT documented as of this encounter Care Teams Aircraft Launch And Recovery Technician Relationship Specialty Start Date End Date Ana Red MPAS, P.A.-C. [address] [place] [phone] PCP - General Internal Medicine 12/01/21 [facility] [place] [facility] 08/25/21 documented as of this encounter
--- OUTSIDE RECORDS SUMMARY | 2024-09-14 01:31 | XMS_ITS | Encounter Summary ---
Author Organization [facility] Address [address] [place] [address] Care Team Providers Care Vice President Of Brand Management Name Role Phone Ana Red P.A.-C. Primary Care Pro vider Encounter Details Date Type Department Care Team (Late st Contact Info) Description 08/31/2024 Clinical Communication Division of Endocrinology in [place], [place] [address] [place] [phone] Ctaia Quintana, YARITZA, C.N.P. [address] [place] [phone] Social History Tobacco Use Types Packs/Day Years [...] Recorded In the past 12 months has [employer], gas, oil, or water [employer] threatened to shut off services in your [...] Answer Date Recorded PHQ-2 Score 0 08/11/2024 [facility] of Occupat ional Health - Occupational Stress [...] your living situation today? I have a [facility] place to live 08/22/2024 Education Answer Date Recorded What is the highest level of school you have completed or the highest degree you have received? Associate degree: occupational, technical, or vocational program 07/16/2021 Comments No Sex and Gender Information Value Date Recorded Sex Assigned at Female 04/12/2021 7:39 PM SOLUTION SALES SENIOR EXECUTIVE Legal Sex Female 7:53 PM SOLUTION SALES SENIOR EXECUTIVE Gender Identity Female 04/12/2021 7:39 PM SOLUTION SALES SENIOR EXECUTIVE Sexual Orientation Straight 04/12/2021 7: 39 PM SOLUTION SALES SENIOR EXECUTIVE documented as of this encounter Miscellaneous Notes * Telephone Encounter - Catia Quintana APRN, C.N.P. - 08/31/2024 3:25 PM CDT Spoke with patient via telephone: Patient reports elevated glucose levels. Current insulin regimen: Lantus 7 units bid Novolog 4 units AC plus correction scale. Note glucose this AM 410 mg/dl, anion gap 12, bicarbonate 24. Recommend Lantus 8 units bid. Recommend follow-up with rn diabetes educator in 1-2 weeks for continued insulin dose adjustment. Patient verbalized understanding. * Telephone Encounter - Catia Quintana APRN, C.N.P. - 08/31/2024 3:25 PM CDT ----- Message from Nurse Nola sent at 08/31/2024 2:37 PM CDT ----- Dr. Luz Brown had wanted the patient to touch base in regards to her blood sugars and insulin management as her blood sugars have been high. The patient requested I send a message to see if you could touch base as she wasn't sure the best way to get a hold of you. Nola Kraus post liver RNCC (covering for [employer]) ----- Message ----- From: Migue Escobar M.D. Sent: 08/31/2024 2:21 PM CDT To: Nola Whipple R.N., C.C.T.CSuma Signed, kp ----- Message ----- From: Nola Whipple R.N., C.C.T.C. Sent: 08/31/2024 12:03 PM CDT To: Migue Escobar M.D. Nh Dr. Escobar, Thanks, I sent you orders to sign and will have her get in touch with diabetes. Nola Kraus ----- Message ----- From: Migue Escobar M.D. Sent: 08/31/2024 10:35 AM CDT To: Nola Whipple R.N., C.C.T.C. 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 [address] [place] [phone] Jesus Figueroa M.D. [address] [place] [phone] 09/14/2024 4:00 PM CDT Telemedicine Division of Pulmonary Medicine in [place], [place] [address] [place] [address] Ben Dickson APRN, C.N.P. [address] [place] [phone] 09/15/2024 8:00 AM CDT Lab Department of Laboratory Medicine and Pathology, [facility] in [place], [place] [address] [place] [address] Edgar Montgomery M.B.B.S., M.S. [address] [place] [phone] 09/15/2024 10:00 AM CDT Comprehensive Visit [facility] in [place], [place] [address] [place] [address] Edgar Montgomery M.B.B.S., M.S. [address] [place] [phone] Miriam Strickland M.D. [address] [place] [phone] 09/15/2024 11:00 AM CDT [facility] in [place], [place] [address] [place] [address] Edgar Montgomery M.B.B.S., M.S. [address] [place] [phone] Discharge Disposition: Home or Self Care 09/15/2024 1:45 PM CDT Infusion Department of Infusion Therapy in [place], [place] [address] [place] [address] Juan Pete M.D. [address] [place] [phone] 09/18/2024 2:15 PM CDT Hospital [facility] [place], [place] [address] [place] [address] Edgar Montgomery M.B.B.S., M.S. [address] [place] [phone] 09/20/2024 3:00 PM CDT Comprehensive Visit [facility] Transplantation and Clinical Regeneration in [place], [place] [address] [place] [phone] Catia Quintana APRN, C.N.P. [address] [place] [phone] 10/03/2024 9:00 AM CDT [facility] [place], [place] [address] [place] [address] Marisabel Carpenter APRN, C.N.P., D.N.P. [address] [place] [phone] 10/05/2024 12:00 PM CDT Appointment Division of Pulmonary Medicine in [place], [place] [address] [place] [address] Edgar Montgomery M.B.B.S., M.S. [address] [place] [address] 10/10/2024 7:50 AM CDT Lab Department of Laboratory Medicine and Pathology, [facility] in [place], [place] [address] [place] [address] Marisabel Carpenter APRN, C.N.P., D.N.P. [address] [place] [phone] 10/10/2024 8:00 AM CDT Lab Department of Laboratory Medicine and Pathology, [facility] in [place], [place] [address] [place] [address] Marisabel Carpenter APRN, C.N.P., D.N.P. [address] [place] [phone] 10/10/2024 8:30 AM CDT Nurse Only [facility] in [place], [place] [address] [place] [address] Marisabel Carpenter APRN, C.N.P., D.N.P. [address] [place] [phone] 10/10/2024 9:20 AM CDT Appointment Department of Radiology, [facility] in [place], [place] [address] [place] [address] Marisabel Carpenter APRN, C.N.P., D.N.P. [address] [place] [address] 10/10/2024 9:45 AM CDT Appointment Department of Laboratory Medicine and Pathology, [facility] in [place], [place] [address] [place] [address] Marisabel Carpenter APRN, C.N.PSuma, D.N.P. [address] [place] [phone] 10/10/2024 1:30 PM CDT Appointment Department of Radiology, [facility] in [place], [place] [address] [place] [address] Marisabel Carpenter APRN, C.N.PSuma, D.N.P. [address] [place] [phone] 10/10/2024 2:45 PM CDT Appointment Department of Radiology, [facility] in [place], [place] [address] [place] [address] Marisabel Carpenter APRN, C.N.PSuma, D.N.P. [address] [place] [phone] 10/11/2024 8:00 AM CDT [facility] in [place], [place] [address] [place] [address] Marisabel Carpenter APRN, C.N.P., D.N.P. [address] [place] [phone] 10/11/2024 11:00 AM CDT [facility] in [place], [place] [address] [place] [phone] Sree Devlin M.D. [address] [place] [address] 10/11/2024 1:00 PM CDT Comprehensive Visit Department of Otorhinolaryngology in [place], [place] [address] [place] [address] Randal Urbano P.A.-C., M.S. [address] [place] [phone] 10/11/2024 2:00 PM CDT [facility] in [place], [place] [address] [place] [address] Hiro Murillo P.A.-C. [address] [place] [phone] 10/11/2024 4:00 PM CDT Comprehensive Visit Department of Dermatology in [place], [place] [address] [place] [phone] Parul Martinez M.D. [address] [place] [phone] 10/12/2024 8:00 AM CDT Telemedicine Ramirez [facility] in [place], [place] [address] [place] [phone] Ervin Mckeon D.O. [address] [place] [phone] 11/01/2024 2:15 PM CDT Appointment Division of Pulmonary Medicine in [place], [place] [address] [place] [phone] Edgar Montgomery M.B.B.S., M.S. [address] [place] [phone] documented as of this encounter Visit Diagnoses Not on filedocumented in this encounter Additional Health Concerns Infection Onset Date Last Indicated Resolved Time Protective Environment 10/10/2022 10/10/2022 Assessment Noted Time PHQ-9 Depression Total Score: 4 08/12/19 25 3:31 PM CDT documented as of this encounter Care Teams Vice President Of Brand Management Relationship Specialty Start Date End Date Ana Red MPAS, P.A.-C. [address] [place] [phone] PCP - General Internal Medicine 12/01/21 [facility] [place] [facility] 08/25/21 documented as of this encounter
--- OUTSIDE RECORDS SUMMARY | 2024-09-14 01:31 | XMS_ITS | Encounter Summary ---
Author Organization [facility] Address [address] [place] [address] Care Team Providers Care Bearing Maker Name Role Phone Ana Red P.A.-C. Primary Care Pro vider Encounter Details Date Type Department Care Team (Late st Contact Info) Description 09/05/2024 Orders Only Ramirez diaz [facility] Trans[facility] Clinical Regeneration in [place], [place] [address] [place] [phone] Hiro Murillo P.A.-CSuma [address] [place] [phone] Acute Abdomen (Primary Dx) Social History Tobacco Use Types Packs/Day Years Used Date Smoking Tobacco: Former Cigarettes 1 - 10/12/2021 Passive Smoke Exposure: Never Smokeless Tobacco: Never Comments:Smoked cigarettes f rom age 18-30 about Alcohol Use Standard Drinks/Week Comments Never 0 (1 standard drink = 0.6 oz pure alcohol) Havent had any alcohol in about a year or so. [facility] Utilities Answer Date Recorded In the past 12 months has th e electric, gas, oil, or water [employer] threatened to shut off services in your [...] any clubs o r organizations such as synagogue groups, unions, fraternal [...] Answer Date Recorded PHQ-2 Score 0 08/11/2024 [facility] of Occupat ional Health - Occupational Stress [...] your living situation today? I have a [facility] place to live 09/09/2024 Education Answer Date Recorded What is the highest level of school you have completed or the highest degree you have received? Associate degree: occupational, technical, or vocational program 07/16/2021 Comments No Sex and Gender Information Value Date Recorded Sex Assigned at Female 04/12/2021 7:39 PM FOOD AND BEVERAGE ASSISTANT Legal Sex Female 7:53 PM FOOD AND BEVERAGE ASSISTANT Gender Identity Female 04/12/2021 7:39 PM FOOD AND BEVERAGE ASSISTANT Sexual Orientation Straight 04/12/2021 7: 39 PM FOOD AND BEVERAGE ASSISTANT documented as of this encounter Plan of Treatment Upcoming Encounters Date Type Department Care Team (Latest Contact Info) Description 09/14/2024 11:00 AM CDT Appointment Department of Radiology, [facility], in [place], [place] [address] [place] [address] Noreen Ansari P.A.-C., M.S. [address] [place] [phone] Jesus Figueroa M.D. [address] [place] [phone] 09/14/2024 4:00 PM CDT Telemedicine Division of Pulmonary Medicine in [place], [place] [address] [place] [address] Ben Dickson APRN, CSumaN.P. [address] [place] [phone] 09/15/2024 8:00 AM CDT Lab Department of Laboratory Medicine and Pathology, [facility], in [place], [place] [address] [place] [address] Edgar Montgomery M.B.B.S., M.S. [address] [place] [phone] 09/15/2024 10:00 AM CDT Comprehensive Visit [facility] Clinical Reg[facility] in [place], [place] [address] [place] [address] Edgar Montgomery M.B.B.S., M.S. [address] [place] [phone] Miriam Strickland M.D. [address] [place] [phone] 09/15/2024 11:00 AM CDT Office Visit [facility] in [place], [place] [address] [place] [address] Edgar Montgomery M.B.B.S., M.S. [address] [place] [phone] Discharge Disposition: Home or Self Care 09/15/2024 1:45 PM CDT Infusion Department of Infusion Therapy in [place], [place] [address] [place] [address] Juan Pete M.D. [address] [place] [phone] 09/18/2024 2:15 PM CDT Hospital Encounter Department of Radiology, [facility] in [place], [place] [address] [place] [address] Edgar Montgomery M.B.B.S., M.S. [address] [place] [phone] 09/20/2024 3:00 PM CDT Comprehensive Visit [facility] [place], [place] [address] [place] [phone] Catia Quintana APRN, C.N.P. [address] [place] [phone] 10/03/2024 9:00 AM CDT Appointment Department of Radiology, [facility], in [place], [place] [address] [place] [phone] Marisabel Carpenter APRN, C.N.P., D.N.P. [address] [place] [phone] 10/05/2024 12:00 PM CDT Appointment Division of Pulmonary Medicine in [place], [place] [address] [place] [phone] Edgar Montgomery M.B.B.S., M.S. [address] [place] [phone] 10/10/2024 7:50 AM CDT Lab Department of Laboratory Medicine and Pathology, [facility] in [place], [place] [address] [place] [address] Marisabel Carpenter APRN, C.N.P., D.N.P. [address] [place] [phone] 10/10/2024 8:00 AM CDT Lab Department of Laboratory Medicine and Pathology, [facility] in [place], [place] [address] [place] [address] Marisabel Carpenter APRN, C.N.P., D.N.P. [address] [place] [phone] 10/10/2024 8:30 AM CDT Nurse Only Ramirez diaz [facility] for Transplantation and Clinical Regeneration in [place], [place] [address] [place] [address] Marisabel Carpenter APRN, C.N.P., D.N.P. [address] [place] [phone] 10/10/2024 9:20 AM CDT Appointment Department of Radiology, [facility] in [place], [place] [address] [place] [address] Marisabel Carpenter APRN, C.N.P., D.N.P. [address] [place] [phone] 10/10/2024 9:45 AM CDT Appointment Department of Laboratory Medicine and Pathology, [facility] in [place], [place] [address] [place] [address] Marisabel Carpenter APRN, C.N.P., D.N.P. [address] [place] [address] 10/10/2024 1:30 PM CDT Appointment Department of Radiology, [facility] in [place], [place] [address] [place] [address] Marisabel Carpenter APRN, C.N.PSuma, D.N.P. [address] [place] [phone] 10/10/2024 2:45 PM CDT Appointment Department of Radiology, [facility], in [place], [place] [address] [place] [address] Marisabel Carpenter APRN, C.N.Frances, D.N.P. [address] [place] [phone] 10/11/2024 8:00 AM CDT Office Visit [facility] in [place], [place] [address] [place] [address] Marisabel Carpenter APRN C.N.PSuma, D.N.P. [address] [place] [phone] 10/11/2024 11:00 AM CDT Comprehensive Visit [facility] in [place], [place] [address] [place] [address] Sree Devlin M.D. [address] [place] [phone] 10/11/2024 1:00 PM CDT Comprehensive Visit Department of Otorhinolaryngology in [place], [place] [address] [place] [address] Randal Urbano P.A.Jordan., M.S. [address] [place] [phone] 10/11/2024 2:00 PM CDT Office Visit [facility] Transplantation and Clinical Regeneration in [place], [place] [address] [place] [phone] Hiro Murillo P.A.-C. [address] [place] [phone] 10/11/2024 4:00 PM CDT Comprehensive Visit Department of Dermatology in [place], [place] [address] [place] [phone] Parul Martinez M.D. [address] [place] [phone] 10/12/2024 8:[address] [facility] Transplantation and Clinical Regeneration in [place], [place] [address] [place] [phone] Ervin Mckeon D.O. [address] [place] [phone] 11/01/2024 2:15 PM CDT Appointment Division of Pulmonary Medicine in [address] [address] Edgar Montgomery M.B.BSumaS., M.S. [address] [place] [phone] documented as of this encounter Visit Diagnoses Diagnosis Acute Abdomen- Primary documented in this encounter Additional Health Concerns Infection Onset Date Last Indicated Resolved Time Protective Environment 10/10/2022 10/10/2022 Assessment Noted Time PHQ-9 Depression Total Score: 4 08/12/19 25 3:31 PM CDT documented as of this encounter Care Teams Bearing Maker Relationship Specialty Start Date End Date Ana Red MPAS P.A.-C. [address] [facility] ADI Chua [phone] PCP - General Internal Medicine 12/01/21 [facility] [place] lab 08/25/21 documented as of this encounter
--- OUTSIDE RECORDS SUMMARY | 2024-09-14 01:31 | XMS_ITS | Encounter Summary ---
Author Organization [facility] Address [address] [place] [address] Care Team Providers Care Spot Billing Clerk Name Role Phone Ana Red P.A.-C. Primary Care Pro vider Encounter Details Date Type Department Care Team (Late st Contact Info) Description 09/04/2024 Orders Only Ramirez diaz [facility] for Transplantation and Clinical Regeneration in [place], [place] [address] [place] [phone] Hiro Murillo P.A.-CSuma [address] [place] [phone] Social History Tobacco Use Types Packs/Day Years Used Date Smoking Tobacco: Former Cigarettes 1 - 10/12/2021 Passive Smoke Exposure: Never Smokeless Tobacco: Never Comments:Smoked cigarettes f rom age 18-30 about Alcohol Use Standard Drinks/Week Comments Never 0 (1 standard drink = 0.6 oz pure alcohol) Havent had any alcohol in about a year or so. [facility] Utilities Answer Date Recorded In the past 12 months has e electric, gas, oil, or water [employer] threatened to shut off services in your [...] How often do you attend chur or latter-day services? Patient declined 02/10/2022 Do you belong [...] Answer Date Recorded PHQ-2 Score 0 08/11/2024 [facility] [place] of Occupat ional Health - Occupational Stress [...] your living situation today? I have a [facility] place to live 08/22/2024 Education Answer Date Recorded What is the highest level of school you have completed or the highest degree you have received? Associate degree: occupational, technical, or vocational program 07/16/2021 Comments No Sex and Gender Information Value Date Recorded Sex Assigned at Female 04/12/2021 7:39 PM BANK WORKER Legal Sex Female 7:53 PM BANK WORKER Gender Identity Female 04/12/2021 7:39 PM BANK WORKER Sexual Orientation Straight 04/12/2021 7: 39 PM BANK WORKER documented as of this encounter Plan of Treatment Upcoming Encounters Date Type Department Care Team (Latest Contact Info) Description 09/14/2024 11:00 AM CDT Appointment Department of Radiology, [facility], in [place], [place] [address] [place] [address] Noreen Ansari P.A.-C., M.S. [address] [place] [phone] Jesus Figueroa M.D. [address] [place] [phone] 09/14/2024 4:00 PM CDT Telemedicine Division of Pulmonary Medicine in [place], [place] [address] [place] [address] Ben Dickson APRN, C.N.P. [address] [place] [phone] 09/15/2024 8:00 AM CDT Lab Department of Laboratory Medicine and Pathology, [facility] in [place], [place] [address] [place] [phone] Edgar Montgomery M.B.B.S., M.S. [address] [place] [phone] 09/15/2024 10:00 AM CDT Comprehensive Visit [facility] for Transplantation and Clinical Regeneration in [place], [place] [address] [place] [address] Edgar Montgomery M.B.B.S., M.S. [address] [place] [phone] Miriam Strickland M.D. [address] [place] [phone] 09/15/2024 11:00 AM CDT Office Visit [facility] for Transplantation and Clinical Regeneration in [place], [place] [address] [place] [address] Edgar Montgomery M.B.B.S., M.S. [address] [place] [phone] Discharge Disposition: Home or Self Care 09/15/2024 1:45 PM CDT Infusion Department of Infusion Therapy in [place], [place] [address] [place] [address] Juan Pete M.D. [address] [place] [phone] 09/18/2024 2:15 PM CDT Hospital Encounter Department of Radiology, [facility] in [place], [place] [address] [place] [address] Edgar Montgomery M.B.B.S., M.S. [address] [place] [phone] 09/20/2024 3:00 PM CDT Comprehensive Visit [facility] for Transplantation and Clinical Regeneration in [place], [place] [address] [place] [phone] Catia Quintana APRN, C.N.P. [address] [place] [phone] 10/03/2024 9:00 AM CDT Appointment Department of Radiology, [facility] in [place], [place] [address] [place] [address] Marisabel Carpenter APRN, C.N.P., D.N.P. [address] [place] [phone] 10/05/2024 12:00 PM CDT Appointment Division of Pulmonary Medicine in [place], [place] [address] [place] [address] Edgar Montgomery M.B.B.S., M.S. [address] [place] [phone] 10/10/2024 7:50 AM CDT Lab Department of Laboratory Medicine and Pathology, [facility] in [place], [place] [address] [place] [address] Marisabel Carpenter APRN, C.N.P., D.N.P. [address] [place] [phone] 10/10/2024 8:00 AM CDT Lab Department of Laboratory Medicine and Pathology, [facility] in [place], [place] [address] [place] [address] Marisabel Carpenter APRN, C.N.P., D.N.P. [address] [place] [phone] 10/10/2024 8:30 AM CDT Nurse Only [facility] in [place], [place] [address] [place] [address] Marisabel Carpenter APRN, C.N.P., D.N.P. [address] [place] [address] 10/10/2024 9:20 AM CDT Appointment Department of Radiology, [facility] in [place], [place] [address] [place] [address] Marisabel Carpenter APRN, C.N.P., D.N.P. [address] [place] [phone] 10/10/2024 9:45 AM CDT Appointment Department of Laboratory Medicine and Pathology, [facility] in [place], [place] [address] [place] [address] Marisabel Carpenter APRN, C.N.P., D.N.P. [address] [place] [address] 10/10/2024 1:30 PM CDT Appointment Department of Radiology, [facility] in [place], [place] [address] [place] [phone] Marisabel Carpenter APRN, C.N.PSuma, D.N.P. [address] [place] [phone] 10/10/2024 2:45 PM CDT Appointment Department of Radiology, [facility], in [place], [place] [address] [place] [address] Marisabel Carpenter APRN, C.NDayne, D.N.P. [address] [place] [phone] 10/11/2024 8:00 AM CDT Office Visit [facility] for Transplantation and Clinical Regeneration in [place], [place] [address] [place] [phone] Marisabel Carpenter APRN, C.N.PSuma, D.N.P. [address] [place] [phone] 10/11/2024 11:00 AM CDT Comprehensive Visit [facility] for Transplantation and Clinical Regeneration in [place], [place] [address] [place] [phone] Sree Devlin M.D. [address] [place] [phone] 10/11/2024 1:00 PM CDT Comprehensive Visit Department of Otorhinolaryngology in [place], [place] [address] [place] [phone] Randal Urbano P.A.-C., M.S. [address] [place] [phone] 10/11/2024 2:00 PM CDT Office Visit [facility] for Transplantation and Clinical Regeneration in [place], [place] [address] [place] [phone] Hiro Murillo P.A.-C. [address] [place] [phone] 10/11/2024 4:00 PM CDT Comprehensive Visit Department of Dermatology in [place], [place] [address] [place] [phone] Parul Martinez M.D. [address] [place] [phone] 10/12/2024 8:00 AM CDT Telemedicine [facility] Transplantation and Clinical Regeneration in [place], [place] [address] [place] [phone] Ervin Mckeon D.O. [address] [place] [phone] 11/01/2024 2:15 PM CDT Appointment Division of Pulmonary Medicine in [place], [place] [address] [place] [phone] Edgar Montgomery M.B.B.S., M.S. [address] [place] [phone] documented as of this encounter Visit Diagnoses Not on filedocumented in this encounter Additional Health Concerns Infection Onset Date Last Indicated Resolved Time Protective Environment 10/10/2022 10/10/2022 Assessment Noted Time PHQ-9 Depression Total Score: 4 08/12/19 25 3:31 PM CDT documented as of this encounter Care Teams Spot Billing Clerk Relationship Specialty Start Date End Date Ana Red MPAS, P.A.-C. [address] [phone] PCP - General Internal Medicine 12/01/21 [facility] [place] lab 08/25/21 documented as of this encounter
--- OUTSIDE RECORDS SUMMARY | 2024-09-14 01:31 | XMS_ITS | Encounter Summary ---
Author Organization [facility] Address [address] [place] [address] Care Team Providers Care Still Operator Whiskey Name Role Phone Ana Red P.A.-C. Primary Care Pro vider Encounter Details Date Type Department Care Team (Latest Contact Info) Description 08/28/2024 Clinical Communication Ramirez Navarrete [facility] in [place], [place] [address] [place] [phone] August, Sony Mendez R.N. [address] [place] [phone] Social History Tobacco Use Types Packs/Day Years Used Date Smoking Tobacco: Former Cigarettes 1 - 10/12/2021 Passive Smoke Exposure: Never Smokeless Tobacco: Never Comments:Smoked cigarettes f rom age 18-30 about Alcohol Use Standard Drinks/Week Comments Never 0 (1 standard drink = 0.6 oz pure alcohol) Havent had any alcohol in about a year or so. [facility] Utilities Answer Date Recorded In [...] week 02/10/2022 How often do you attend [facility] or pentecostalism services? Patient declined 02/10/2022 Do [...] your living situation today? I have a [facility] place to live 08/22/2024 Education Answer Date Recorded What is the highest level of school you have completed or the highest degree you have received? Associate degree: occupational, technical, or vocational program 07/16/2021 Comments No Sex and Gender Information Value Date Recorded Sex Assigned at Female 04/12/2021 7:39 PM MERCHANT MILLER Legal Sex Female 7:53 PM MERCHANT MILLER Gender Identity Female 04/12/2021 7:39 PM MERCHANT MILLER Sexual Orientation Straight 04/12/2021 7: 39 PM MERCHANT MILLER documented as of this encounter Miscellaneous Notes * Telephone Encounter - Snoy Carty R.N. - 08/28/2024 3:28 PM CDT SUBJECTIVE CHIEF COMPLAINT / REASON FOR CALL No chief complaint on file. PLAN The following information was provided: I returned phone call to Christelle. I had messaged her earlier, but she did not see my message. She is flexible this week. Plan will be for labs on Wednesday and clinic visit or Wednesday. Information/Education: patient/caller able to teach back The following references were used: nursing clinical judgement documented in this encounter Plan of Treatment Upcoming Encounters Date Type Department Care Team (Latest Contact Info) Description 09/14/2024 11:00 AM CDT Appointment Department of Radiology, [facility] in [place], [place] [address] [place] [phone] Noreen Ansari P.A.-C., M.S. [address] [place] [phone] Jesus Figueroa M.D. [address] [place] [phone] 09/14/2024 4:00 PM CDT Telemedicine Division of Pulmonary Medicine in [place], [place] [address] [place] [phone] Ben Dickson, WELL SURVEYING ENGINEER, C.N.P. [address] [place] [phone] 09/15/2024 8:00 AM CDT Lab Department of Laboratory Medicine and Pathology, [facility], in [place], [place] [address] [place] [phone] Edgar Montgomery M.B.B.S., M.S. [address] [place] [phone] 09/15/2024 10:00 AM CDT Comprehensive Visit Ramirez Landon diaz [facility] for Transplantation and Clinical Regeneration in [place], [place] [address] [place] [phone] Edgar Montgomery M.B.B.S., M.S. [address] [place] [phone] Miriam Strickland M.D. [address] [place] [phone] 09/15/2024 11:00 AM CDT Office Visit Ramirez diaz [facility] for Transplantation and Clinical Regeneration in [place], [place] [address] [place] [address] Edgar Montgomery M.B.B.S., M.S. [address] [place] [phone] Discharge Disposition: Home or Self Care 09/15/2024 1:45 PM CDT Infusion Department of Infusion Therapy in [place], [place] [address] [place] [address] Juan Pete M.D. [address] [place] [phone] 09/18/2024 2:15 PM CDT Hospital Encounter Department of Radiology, [facility] in [place], [place] [address] [place] [address] Edgar Montgomery M.B.B.S., M.S. [address] [place] [phone] 09/20/2024 3:00 PM CDT [facility] in [place], [place] [address] [place] [address] Catia Quintana APRN, C.N.P. [address] [place] [phone] 10/03/2024 9:00 AM CDT Appointment Department of Radiology, [facility] in [place], [place] [address] [place] [address] Marisabel Carpenter APRN C.N.PSuma, D.N.P. [address] [place] [phone] 10/05/2024 12:00 PM CDT Appointment Division of Pulmonary Medicine in [place], [place] [address] [place] [address] Edgar Montgomery M.B.B.S., M.S. [address] [place] [phone] 10/10/2024 7:50 AM CDT Lab Department of Laboratory Medicine and Pathology, [place], [place] [address] [place] [address] Marisabel Carpenter APRN, C.N.PSuma, D.N.P. [address] [place] [phone] 10/10/2024 8:00 AM CDT Lab Department of Laboratory Medicine and Pathology, [facility] in [place], [place] [address] [place] [address] Marisabel Carpenter APRN, C.N.PSuma, D.N.P. [address] [place] [phone] 10/10/2024 8:30 AM CDT Nurse Only Ramirez Nguyen [place] [facility] Clinical [facility]eneration in [place], [place] [address] [place] [address] Marisabel Carpenter APRN, C.N.P., D.N.P. [address] [place] [phone] 10/10/2024 9:20 AM CDT Appointment Department of Radiology, [facility] in [place], [place] [address] [place] [address] Marisabel Carpenter APRN, C.N.PSuma, D.N.P. [address] [place] [phone] 10/10/2024 9:45 AM CDT Appointment Department of Laboratory Medicine and Pathology, [facility] in [place], [place] [address] [place] [address] Marisabel Carpenter APRN, C.N.PSuma, D.N.P. [address] [place] [phone] 10/10/2024 1:30 PM CDT Appointment Department of Radiology, [facility] in [place], [place] [address] [place] [address] Marisabel Carpenter APRN, Katrin.N.PSuma, D.N.P. [address] [place] [phone] 10/10/2024 2:45 PM CDT Appointment Department of Radiology, [facility] in [place], [place] [address] [place] [address] Marisabel Carpenter APRN, Katrin.N.PSuma, D.N.P. [address] [place] [phone] 10/11/2024 8:00 AM CDT Office Visit Ramirez Navarrete [facility] in [place], [place] [address] [place] [address] Marisabel Carpenter APRN, C.N.PSuma, D.N.P. [address] [place] [phone] 10/11/2024 11:00 AM CDT [facility] in [place], [place] [address] [place] [address] Sree Devlin M.D. [address] [place] [phone] 10/11/2024 1:00 PM CDT Comprehensive Visit Department of Otorhinolaryngology in [place], [place] [address] [place] [address] Randal Urbano P.A.-C., M.S. [address] [place] [phone] 10/11/2024 2:00 PM CDT Office Visit [facility] for Transplantation and Clinical Regeneration in [place], [place] [address] [place] [address] Hiro Murillo P.A.-C. [address] [place] [phone] 10/11/2024 4:00 PM CDT Comprehensive Visit Department of Dermatology in [place], [place] [address] [place] [address] Parul Martinez M.D. [address] [place] [phone] 10/12/2024 8:00 AM CDT Telemedicine [facility] for Transplantation and Clinical Regeneration in [place], [place] [address] [place] [address] Ervin Mckeon D.O. [address] [place] [phone] 11/01/2024 2:15 PM CDT Appointment Division of Pulmonary Medicine in [place], [place] [address] [place] [address] Edgar Montgomery M.B.B.S., M.S. [address] [place] [phone] documented as of this encounter Results * (ABNORMAL) Tacrolimus, Trough (08/31/2024 8:20 AM CDT) Tacrolimus, Trough <1.0(L) 5.0-15.0 (Trough) ng/mL 08/31/2024 12:50 PM CDT [facility] Comment: ----ADDITIONAL INFORMATION---- Target steady-state trough concentrations vary depending on the type of transplant, concomitant immunosuppression, clinical/institutional protocols, and time post-transplant. Results should be interpreted in conjunction with this clinical information and any physical signs/symptoms of rejection/toxicity. Testing performed by Liquid Chromatography-Tandem Mass Spectrometry (LC-MS/MS). This test was developed and its performance characteristics determined by [facility] in a manner consistent with CLIA requirements. This test has not been cleared or approved by the U.S. Food and Drug Administration. Blood (Blood, Venous) 08/31/2024 8:20 AM CDT 08/31/2024 10:26 AM CDT us Noreen Ansari P.A.-C., M.S. LAB BLOOD NON A DD-ON Final Result [facility] [address] [place] [address] [facility] [address] [place] [address] [place] [address] * (ABNORMAL) Comprehensive Metabolic Panel (08/31/2024 8:20 AM CDT) Potassium, S 4.5 3.6 - 5.2 mmol/L 08/31/2024 9:56 AM CDT DTL Sodium, S 134(L) 135 - 145 mmol/L 08/31/2024 9:56 AM CDT DTL Chloride, S 98 98 - 107 mmol/L 08/31/2024 9:56 AM CDT DTL Bicarbonate, S 24 22 - 29 mmol/L 08/31/2024 9:56 AM CDT DTL Anion Gap 12 7 - 15 08/31/2024 9:56 AM CDT DTL BUN (Blood Urea Nitrogen), S 12 6 - 21 mg/dL 08/31/2024 9:56 AM CDT DTL Creatinine 0.53(L) 0.59 - 1.04 mg/dL 08/31/2024 9:56 AM CDT DTL Estimated GFR (eGFR) >90 >=60 mL/min/BS A 08/31/2024 9:56 AM CDT DTL Comment: Estimated GFR calculated using the 2020 CKD_EPI creatinine equation. Calcium, Total, S 9.9 8.6 - 10.0 mg/dL 08/31/2024 9:56 AM CDT DTL Glucose, S 410(CH) 70 - 140 mg/dL 08/31/2024 9:56 AM CDT DTL Protein, Total, S 6.9 6.3 - 7.9 g/dL 08/31/2024 9:56 AM CDT DTL Albumin, S 4.6 3.5 - 5.0 g/dL 08/31/2024 9:56 AM CDT DTL Aspartate Aminotransferase (AST), S 102(H) 8 - 43 U/L 08/31/2024 9:56 AM CDT DTL Alkaline Phosphatase, S 233(H) 35 - 104 U/L 08/31/2024 9:56 AM CDT DTL Alanine Aminotransferase (ALT), S 169(H) 7 - 45 U/L 08/31/2024 9:56 AM CDT DTL Bilirubin, Total, S 0.7 0.0 - 1.2 mg/dL 08/31/2024 9:56 AM CDT DTL Blood (Blood, Venous) 08/31/2024 8:20 AM CDT 08/31/2024 8:50 AM CDT us Noreen Ansari P.A.-C., M.S. LAB BLOOD ADD-O N Final Result [facility] [address] [place] [address], [facility] DTL [facility] [address] * (ABNORMAL) CBC with Differential, Blood (08/31/2024 8:20 AM CDT) Hemoglobin 15.7(H) 11.6 - 15.0 g/dL 08/31/2024 9:05 AM CDT DTL Hematocrit 44.4 35.5 - 44.9 % 08/31/2024 9:05 AM CDT DTL Erythrocytes 5.16(H) 3.92 - 5.13 x10(12)/L 08/31/2024 9:05 AM CDT DTL MCV 86.0 78.2 - 97.9 fL 08/31/2024 9:05 AM CDT DTL RBC Distrib Width 11.8(L) 12.2 - 16.1 % 08/31/2024 9:05 AM CDT DTL Platelet Count 212 157 - 371 x10(9)/L 08/31/2024 9:05 AM CDT DTL Leukocytes 5.6 3.4 - 9.6 x10(9)/L 08/31/2024 9:05 AM CDT DTL Neutrophils 3.85 1.56 - 6.45 x10(9)/L 08/31/2024 9:05 AM CDT [facility] Lymphocytes 1.28 0.95 - 3.07 x10(9)/L 08/31/2024 9:05 AM CDT DTL Monocytes 0.32 0.26 - 0.81 x10(9)/L 08/31/2024 9:05 AM CDT DTL Eosinophils 0.15 0.03 - 0.48 x10(9)/L 08/31/2024 9:05 AM CDT DTL Basophils 0.03 0.01 - 0.08 x10(9)/L 08/31/2024 9:05 AM CDT DTL Blood (Blood, Venous) 08/31/2024 8:20 AM CDT 08/31/2024 8:32 AM CDT us Noreen Ansari P.A.-C., M.S. LAB BLOOD ADD-O N Final Result [facility] 200 [place] [address], [facility] 200 [place] [address] [facility] 200 [place] [address] * Bilirubin, Direct (08/31/2024 8:20 AM CDT) Bilirubin, Direct, S 0.2 0.0 - 0.3 mg/dL 08/31/2024 9:56 AM CDT DTL Blood (Blood, Venous) 08/31/2024 8:20 AM CDT 08/31/2024 8:50 AM CDT Noreen Ansari P.A.-C., M.S. LAB BLOOD ADD-O N Final Result Performing Organization Address [facility] Co de Phone Number [facility] 200 [place], [place] [address] 200 [place] [address] documented in this encounter Visit Diagnoses Diagnosis Transplant Liver (HCC)- Primary Medication Therapy Continuous Improvement Coordinator Not 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 documented in this encounter Additional Health Concerns Infection Onset Date Last Indicated Resolved Time Protective Environment 10/10/2022 10/10/2022 Assessment Noted Time PHQ-9 Depression Total Score: 4 08/12/19 25 3:31 PM CDT documented as of this encounter Care Teams Still Operator Whiskey Relationship Specialty Start Date End Date Ana Red MPAS, P.A.-C. [address] [place] [address] [place] [address] PCP - General Internal Medicine 12/01/21 [facility] [place] 08/25/21 documented as of this encounter
--- OUTSIDE RECORDS SUMMARY | 2024-09-14 01:32 | XMS_ITS | Encounter Summary ---
Author Organization [facility] Address [address] [place] [address] Care Team Providers Care Exhibitor Sales Name Role Phone Ana Red P.A.-C. Primary Care Pro vider Encounter Details Date Type Department Care Team (Latest Contact Info) Description 09/06/2024 Intake [facility] Social History Tobacco Use Types Packs/Day Years Used Date Smoking Tobacco: Former Cigarettes 1 - 10/12/2021 Passive Smoke Exposure: Never Smokeless Tobacco: Never Comments:Smoked cigarettes f rom age 18-30 about Alcohol Use Standard Drinks/Week Comments Never 0 (1 standard drink = 0.6 oz pure alcohol) Havent had any alcohol in about a year or so. [facility] Utilities Answer Date Recorded In the past 12 months has [employer], oil, or water [employer] threatened to shut off services in your [...] How often do you attend chur or episcopal services? Patient declined 02/10/2022 Do you belong [...] your living situation today? I have a [facility] place to live 09/09/2024 Education Answer Date Recorded What is the highest level of school you have completed or the highest degree you have received? 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 200 [place] [phone] Jesus Figueroa M.D. 200 [place] [phone] 09/14/2024 4:00 PM CDT Telemedicine Division of Pulmonary Medicine in [place], [place] [address] [place] [phone] Ben Dickson APRN, LowellNSumaP. [address] [place] [phone] 09/15/2024 8:00 AM CDT Lab Department of Laboratory Medicine and Pathology, [facility] in [place], [place] [address] [place] [phone] Edgar Montgomery M.B.B.S., M.S. [address] [place] [phone] 09/15/2024 10:00 AM CDT Comprehensive [facility] in [place], [place] [address] [place] [phone] Edgar Montgomery M.B.B.S., M.S. [address] [place] [phone] Miriam Strickland M.D. [address] [place] [phone] 09/15/2024 11:00 AM CDT Office Visit [facility] for Transplantation and Clinical Regeneration in [place], [place] [address] [place] [phone] Edgar Montgomery M.B.B.S., M.S. [address] [place] [phone] Discharge Disposition: Home or Self Care 09/15/2024 1:45 PM CDT Infusion Department of Infusion Therapy in [place], [place] [address] [place] [address] Juan Pete M.D. [address] [place] [address] 09/18/2024 2:15 PM CDT Hospital Encounter Department of Radiology, [facility] in [place], [place] [address] [place] [address] Edgar Montgomery M.B.B.S., M.S. [address] [place] [address] 09/20/2024 3:00 PM CDT Comprehensive Visit [facility] Clinical Regeneration in [place], [place] [address] [place] [address] Catia Quintana APRN, C.N.P. [address] [place] [phone] 10/03/2024 9:00 AM CDT Appointment Department of Radiology, [facility], in [place], [place] [address] [place] [address] Marisabel Carpenter APRN, C.N.P., D.N.P. [address] [place] [phone] 10/05/2024 12:00 PM CDT Appointment Division of Pulmonary Medicine in [place], [place] [address] [place] [address] Edgar Montgomery M.B.B.S., M.S. [address] [place] [phone] 10/10/2024 7:50 AM CDT Lab Department of Laboratory Medicine and Pathology, [facility], in [place], [place] [address] [place] [address] Marisabel Carpenter APRN, C.N.P., D.N.P. [address] [place] [address] 10/10/2024 8:00 AM CDT Lab Department of Laboratory Medicine and Pathology, [facility] in [place], [place] [address] [place] [address] Marisabel Carpenter APRN, C.N.PSuma, D.N.P. [address] [place] [phone] 10/10/2024 8:30 AM CDT Nurse Only [facility] in [place], [place] [address] [place] [address] Marisabel Carpenter APRN, Katrin.N.PSuma, D.N.P. [address] [place] [phone] 10/10/2024 9:20 AM CDT Appointment Department of Radiology, [facility] in [place], [place] [address] [place] [address] Marisabel Carpenter APRN, C.N.PSuma, D.N.P. [address] [place] [phone] 10/10/2024 9:45 AM CDT Appointment Department of Laboratory Medicine and Pathology, [employer], [place] [address] [place] [address] Marisabel Carpenter APRN, C.N.PSuma, D.N.P. [address] [place] [phone] 10/10/2024 1:30 PM CDT Appointment Department of Radiology, [facility] in [place], [place] [address] [place] [address] Marisabel Carpenter APRN, C.N.PSuma, D.N.P. [address] [place] [phone] 10/10/2024 2:45 PM CDT Appointment Department of Radiology, [facility], in [place], [place] [address] [place] [address] Marisabel Carpenter APRN C.N.PSuma, D.N.P. [address] [place] [phone] 10/11/2024 8:00 AM CDT Office Visit Ramirez [facility] [place] for Transplantation and Clinical Regeneration in [place], [place] [address] [place] [address] Marisabel Carpenter APRN, Katrin.N.PSuma, D.N.P. [address] [place] [phone] 10/11/2024 11:00 AM CDT Comprehensive Visit [facility] [place] Transplantation and Clinical Regeneration in [place], [place] [address] [place] [address] Sree Devlin M.D. [address] [place] [phone] 10/11/2024 1:00 PM CDT Comprehensive Visit Department of Otorhinolaryngology in [place], [place] [address] [place] [phone] Randal Urbano, P.A.-C., M.S. [address] [place] [phone] 10/11/2024 2:00 PM CDT Office Visit [facility] and Clinical Regeneration in [place], [place] [address] [place] [address] Hiro Murillo P.A.-C. [address] [place] [phone] 10/11/2024 4:00 PM CDT Comprehensive Visit Department of Dermatology in [place], [place] [address] [place] [phone] Parul Martinez M.D. [address] [place] [phone] 10/12/2024 8:00 AM CDT Telemedicine [facility] for Transplantation and Clinical Regeneration in [place], [place] [address] [place] [phone] Ervin Mckeon D.O. [address] [place] [phone] 11/01/2024 2:15 PM CDT Appointment Division of Pulmonary Medicine in [place], [place] [address] [place] [phone] Edagr Montgomery M.B.BSumaS., M.S. [address] [place] [phone] documented as of this encounter Visit Diagnoses Not on filedocumented in this encounter Additional Health Concerns Infection Onset Date Last Indicated Resolved Time Protective Environment 10/10/2022 10/10/2022 Assessment Noted Time PHQ-9 Depression Total Score: 4 08/12/19 25 3:31 PM CDT documented as of this encounter Care Teams Exhibitor Sales Relationship Specialty Start Date End Date Ana Red MPAS, PToo. [address] [facility] [place] [address] PCP - General Internal Medicine 12/01/21 [facility] [place] [facility] 08/25/21 documented as of this encounter
--- OUTSIDE RECORDS SUMMARY | 2024-09-14 01:32 | XMS_ITS | Encounter Summary ---
Author Organization [facility] Address [address] [place] [address] Care Team Providers Care Dowel Pointer Name Role Phone Ana Red, P.A.-C. Primary Care Pro vider Reason for Visit * Reason Onset Date Comments Med Refill 07/20/2024 Encounter Details Date Type Department Care Team (Late st Contact Info) Description 07/20/2024 Refill Department of Community Internal Medicine in [place], [place] [address] [place] [phone] Ana Red MPAS, P.A.-C. [address] [place] [phone] Med Refill Social History Tobacco Use Types Packs/Day Years Used Date Smoking Tobacco: Former Cigarettes 1 - 10/12/2021 Passive Smoke Exposure: Never Smokeless Tobacco: Never Comments:No longer smoke Alcohol Use Standard Drinks/Week Comments Never 0 (1 standard drink = 0.6 oz pure alcohol) Havent had any alcohol in about a year or so. [facility] Utilities Answer Date Recorded In the past 12 months has [facility] electric, gas, oil, or water [employer] threatened to shut off services in your [...] How often do you attend chur or mandaen services? Patient declined 02/10/2022 Do you belong [...] Answer Date Recorded PHQ-2 Score 0 08/11/2024 [facility] [place] of Occupat ional Health - Occupational Stress [...] your living situation today? I have a [facility] place to live 07/25/2024 Education Answer Date Recorded What is the highest level of school you have completed or the highest degree you have received? Associate degree: occupational, technical, or vocational program 07/16/2021 Comments No Sex and Gender Information Value Date Recorded Sex Assigned at Female 04/12/2021 7:39 PM BILINGUAL MANAGER Legal Sex Female 7:53 PM BILINGUAL MANAGER Gender Identity Female 04/12/2021 7:39 PM BILINGUAL MANAGER Sexual Orientation Straight 04/12/2021 7: 39 PM BILINGUAL MANAGER documented as of this encounter Plan of Treatment Upcoming Encounters Date Type Department Care Team (Latest Contact Info) Description 09/14/2024 11:00 AM CDT Appointment Department of Radiology, [facility], in [place], [place] [address] [place] [phone] Noreen Ansari P.A.-C., M.S. [address] [place] [address] Jesus Figueroa M.D. [address] [place] [phone] 09/14/2024 4:00 PM CDT Telemedicine Division of Pulmonary Medicine in [place], [place] [address] [place] [address] Ben Dickson APRN, C.N.P. [address] [place] [phone] 09/15/2024 8:00 AM CDT Lab Department of Laboratory Medicine and Pathology, [facility], in [place], [place] [address] [place] [address] Edgar Montgomery M.B.B.S., M.S. [address] [place] [phone] 09/15/2024 10:00 AM CDT Comprehensive Visit [facility] in [place], [place] [address] [place] [address] Edgar Montgomery M.B.B.S., M.S. [address] [place] [phone] Miriam Strickland M.D. [address] [place] [phone] 09/15/2024 11:00 AM CDT Office Visit [facility] in [place], [place] [address] [place] [address] Edgar Montgomery M.B.B.S., M.S. [address] [place] [phone] Discharge Disposition: Home or Self Care 09/15/2024 1:45 PM CDT Infusion Department of Infusion Therapy in [place], [place] [address] [place] [address] Juan Pete M.D. [address] [place] [phone] 09/18/2024 2:15 PM CDT Hospital Encounter Department of Radiology, [facility] in [place], [place] [address] [place] [address] Edgar Montgomery M.B.B.S., M.S. [address] [place] [phone] 09/20/2024 3:00 PM CDT Comprehensive Visit [facility] in [place], [place] [address] [place] [address] Catia Quintana APRN, C.N.P. [address] [place] [phone] 10/03/2024 9:00 AM CDT Appointment Department of Radiology, [facility] in [place], [place] [address] [place] [address] Marisabel Carpenter APRN, C.N.P., D.N.P. [address] [place] [phone] 10/05/2024 12:00 PM CDT Appointment Division of Pulmonary Medicine in [place], [place] [address] [place] [address] Edgar Montgomery M.B.B.S., M.S. [address] [place] [phone] 10/10/2024 7:50 AM CDT Lab Department of Laboratory Medicine and Pathology, [facility] in [place], [place] [address] [place] [address] Marisabel Carpenter APRN, C.N.P., D.N.P. [address] [place] [phone] 10/10/2024 8:00 AM CDT Lab Department of Laboratory Medicine and Pathology, [facility] in [place], [place] [address] [place] [address] Marisabel Carpenter APRN, C.N.P., D.N.P. [address] [place] [phone] 10/10/2024 8:30 AM CDT Nurse Only [facility] in [place], [place] [address] [place] [address] Marisabel Carpenter APRN, C.N.P., D.N.P. [address] [place] [phone] 10/10/2024 9:20 AM CDT Appointment Department of Radiology, [facility] in [place], [place] [address] [place] [address] Marisabel Carpenter APRN, C.N.P., D.N.P. [address] [place] [phone] 10/10/2024 9:45 AM CDT Appointment Department of Laboratory Medicine and Pathology, [facility] in [place], [place] [address] [place] [address] Marisabel Carpenter APRN, C.N.PSuma, D.N.P. [address] [place] [address] 10/10/2024 1:30 PM CDT Appointment Department of Radiology, [facility] in [place], [place] [address] [place] [address] Marisabel Carpenter APRN, C.N.PSuma, D.N.P. [address] [place] [phone] 10/10/2024 2:45 PM CDT Appointment Department of Radiology, [facility] in [place], [place] [address] [place] [address] Marisabel Carpenter APRN, C.N.PSuma, D.N.P. [address] [place] [phone] 10/11/2024 8:00 AM CDT Office Visit [facility] in [place], [place] [address] [place] [address] Marisabel Carpenter APRN, C.N.PSuma, D.N.P. [address] [place] [phone] 10/11/2024 11:00 AM CDT Comprehensive Visit [facility] in [place], [place] [address] [place] [address] Sree Devlin M.D. [address] [place] [phone] 10/11/2024 1:00 PM CDT Comprehensive Visit Department of Otorhinolaryngology in [place], [place] [address] [place] [address] Randal Urbano P.A.-C., M.S. [address] [place] [address] 10/11/2024 2:00 PM CDT Office Visit [facility] Trans[facility] and Clinical Regeneration in [place], [place] [address] [place] [address] Hiro Murillo P.A.-C. [address] [place] [phone] 10/11/2024 4:00 PM CDT Comprehensive Visit Department of Dermatology in [place], [place] [address] [place] [phone] Parul Martinez M.D. [address] [place] [phone] 10/12/2024 8:00 AM CDT Telemedicine [facility] Transplantation and Clinical Regeneration in [place], [place] [address] [place] [address] Ervin Mckeon D.O. [address] [place] [phone] 11/01/2024 2:15 PM CDT Appointment Division of Pulmonary Medicine in [place], [place] [address] [place] [phone] Edgar Montgomery M.B.B.S., M.S. [address] [place] [phone] documented as of this encounter Visit Diagnoses Diagnosis Chronic Pain Syndrome documented in this encounter Additional Health Concerns Infection Onset Date Last Indicated Resolved Time Protective Environment 10/10/2022 10/10/2022 Assessment Noted Time PHQ-9 Depression Total Score: 4 06/18/19 24 12:20 PM BILINGUAL MANAGER documented as of this encounter Care Teams Dowel Pointer Relationship Specialty Start Date End Date Ana Red MPAS, P.A.-C. [address] [facility] [place] [phone] PCP - General Internal Medicine 12/01/21 [facility] [place] [facility] 08/25/21 documented as of this encounter
--- OUTSIDE RECORDS SUMMARY | 2024-09-14 01:32 | XMS_ITS | Encounter Summary ---
Author Organization [facility] Address [address] [place] [phone] Care Team Providers Care Busboy Name Role Phone Ana Red P.A.-C. Primary Care Pro vider Reason for Referral * Outpatient (Routine) - Authorized Specialty Diagnoses / Procedures Referred By Meir t Referred To Contact Pharmacy Edgar Montgomery M.B.B.S., M.S. [address] [place] [phone] Phone: tel: fax: [facility] Referral ID Status Reason Start Date Expiration Date V isits Requested Visits Authorized [id number] Authorized 09/08/2024 03/10/2026 1 1 Encounter Details Date Type Department Care Team (Late st Contact Info) Description 09/08/2024 Orders Only Ramirez Nguyen [facility] in [place], [place] [address] [place] [phone] Criselda Samayoa R.N., CCTN Social History Tobacco Use Types Packs/Day Years Used Date Smoking Tobacco: Former Cigarettes 1 - 10/12/2021 Passive Smoke Exposure: Never Smokeless Tobacco: Never Comments:Smoked cigarettes f rom age 18-30 about Alcohol Use Standard Drinks/Week Comments Never 0 (1 standard drink = 0.6 oz pure alcohol) Havent had any alcohol in about a year or so. [facility] Utilities Answer Date Recorded In the past 12 months has th e [employer], gas, oil, or water company threatened to [...] How often do you attend chur or zoroastrian services? Patient declined 02/10/2022 Do you belong [...] Date Recorded PHQ-2 Score 0 08/11/2024 [facility] of Occupat ional Health - Occupational [...] your living situation today? I have a [facility] place to live 09/09/2024 Education Answer Date Recorded What is the highest level of school you have completed or the highest degree you have received? Associate degree: occupational, technical, or vocational program 07/16/2021 Comments No Sex and Gender Information Value Date Recorded Sex Assigned at Female 04/12/2021 7:39 PM NECKTIE OPERATOR POCKETS AND PIECES Legal Sex Female 7:53 PM NECKTIE OPERATOR [employer]OCKETS [employer] PIECES Gender Identity Female 04/12/2021 7:39 PM NECKTIE OPERATOR [employer]OCKETS AND PIECES Sexual Orientation Straight 04/12/2021 7: 39 PM NECKTIE OPERATOR POCKETS AND PIECES documented as of this encounter Plan of Treatment Upcoming Encounters Date Type Department Care Team (Latest Contact Info) Description 09/14/2024 11:00 AM CDT Appointment Department of Radiology, [facility] in [place], [place] [address] [place] [phone] Noreen Ansari P.A.-C., M.S. [address] [place] [phone] Jesus Figueroa M.D. [address] [place] [phone] 09/14/2024 4:00 PM CDT Telemedicine Division of Pulmonary Medicine in [place], [place] [address] [place] [phone] Ben Dickson, YARITZA, C.N.P. [address] [place] [phone] 09/15/2024 8:00 AM CDT Lab Department of Laboratory Medicine and Pathology, [facility] in [place], [place] [address] [place] [phone] Edgar Montgomery M.B.B.S., M.S. [address] [place] [phone] 09/15/2024 10:00 AM CDT [facility] in [place], [place] [address] [place] [phone] Edgar Montgomery M.B.B.S., M.S. [address] [place] [phone] Miriam Strickland M.D. [address] [place] [phone] 09/15/2024 11:00 AM CDT Office Visit Ramirez Navarrete [facility] Trans[facility] and Clinical Regeneration in [place], [place] [address] [place] [address] Edgar Montgomery M.B.B.S., M.S. [address] [place] [phone] Discharge Disposition: Home or Self Care 09/15/2024 1:45 PM CDT Infusion Department of Infusion Therapy in [place], [place] [address] [place] [address] Juan Pete M.D. [address] [place] [phone] 09/18/2024 2:15 PM CDT Hospital Encounter Department of Radiology, [facility] in [place], [place] [address] [place] [address] Edgar Montgomery M.B.B.S., M.S. [address] [place] [phone] 09/20/2024 3:00 PM CDT Comprehensive [facility] in [place], [place] [address] [place] [address] Catia Quintana APRN, C.N.P. [address] [place] [phone] 10/03/2024 9:00 AM CDT Appointment Department of Radiology, [facility], in [place], [place] [address] [place] [address] Marisabel Carpenter APRN C.N.PSuma, D.N.P. [address] [place] [phone] 10/05/2024 12:00 PM CDT Appointment Division of Pulmonary Medicine in [place], [place] [address] [place] [address] Edgar Montgomery M.B.B.S., M.S. [address] [place] [phone] 10/10/2024 7:50 AM CDT Lab Department of Laboratory Medicine and Pathology, [place], [place] [address] [place] [address] Marisabel Carpenter APRN, C.N.PSuma, D.N.P. [address] [place] [phone] 10/10/2024 8:00 AM CDT Lab Department of Laboratory Medicine and Pathology, [facility] in [place], [place] [address] [place] [address] Marisabel Carpenter APRN, C.N.PSuma, D.N.P. [address] [place] [phone] 10/10/2024 8:30 AM CDT Nurse Only Ramirez diaz [facility] Trans[facility] and Clinical Regeneration in [place], [place] [address] [place] [address] Marisabel Carpenter APRN, C.N.P., D.N.P. [address] [place] [phone] 10/10/2024 9:20 AM CDT Appointment Department of Radiology, [facility], in [place], [place] [address] [place] [address] Marisabel Carpenter APRN, C.N.P., D.N.P. [address] [place] [address] 10/10/2024 9:45 AM CDT Appointment Department of Laboratory Medicine and Pathology, [facility] in [place], [place] [address] [place] [address] Marisabel Carpenter APRN, C.N.P., D.N.P. [address] [place] [phone] 10/10/2024 1:30 PM CDT Appointment Department of Radiology, [facility] in [place], [place] [address] [place] [address] Marisabel Carpenter APRN, C.N.P., D.N.P. [address] [place] [phone] 10/10/2024 2:45 PM CDT Appointment Department of Radiology, [facility] in [place], [place] [address] [place] [address] Marisabel Carpenter APRN, C.N.P., D.N.P. [address] [place] [phone] 10/11/2024 8:00 AM CDT [facility] in [place], [place] [address] [place] [address] Marisabel Carpenter APRN, C.N.P., D.N.P. [address] [place] [phone] 10/11/2024 11:00 AM CDT Comprehensive [facility] in [place], [place] [address] [place] [address] Sree Devlin M.D. [address] [place] [phone] 10/11/2024 1:00 PM CDT Comprehensive Visit Department of Otorhinolaryngology in [place], [place] [address] [place] [address] Randal Urbano P.A.-C., M.S. [address] [place] [phone] 10/11/2024 2:00 PM CDT Office Visit [facility] Transplantation and Clinical Regeneration in [place], [place] [address] [place] [address] Hiro Murillo P.A.-C. [address] [place] [phone] 10/11/2024 4:00 PM CDT Comprehensive Visit Department of Dermatology in [place], [place] [address] [place] [address] Parul Martinez M.D. [address] [place] [phone] 10/12/2024 8:00 AM CDT Telemedicine [facility] Transplantation and Clinical Regeneration in [place], [place] [address] [place] [address] Ervin Mckeon D.O. [address] [place] [phone] 11/01/2024 2:15 PM CDT Appointment Division of Pulmonary Medicine in [place], [place] [address] [place] [address] Edgar Montgomery M.B.B.S., M.S. [address] [place] [address] Scheduled Referrals Name Type Priority Associated Diagnoses Order Schedule Pharmacy - Medication therapy management - transplant office visit (clinic) Outpatient Referral Routine Expected: 09/15/2024 (Approximate), Expires: 12/09/2025 documented as of this encounter Visit Diagnoses Not on filedocumented in this encounter Additional Health Concerns Infection Onset Date Last Indicated Resolved Time Protective Environment 10/10/2022 10/10/2022 Assessment Noted Time PHQ-9 Depression Total Score: 4 08/12/19 25 3:31 PM CDT documented as of this encounter Care Teams Busboy Relationship Specialty Start Date End Date Ana Red MPAS, P.A.-C. [address] [place] [phone] PCP - General Internal Medicine 12/01/21 [facility] [facility] 08/25/21 documented as of this encounter
--- OUTSIDE RECORDS SUMMARY | 2024-09-14 01:32 | XMS_ITS | Encounter Summary ---
Author Organization [facility] Address [address] [place] [address] Care Team Providers Care Traffic Clerk Name Role Phone Ana Red, P.A.-C. Primary Care Pro vider Reason for Visit * Reason Onset Date Comments Med Refill 07/17/2024 Encounter Details Date Type Department Care Team (Late st Contact Info) Description 07/17/2024 Refill Department of Community Internal Medicine in [place], [place] [address] [place] [phone] Ana Red MPAS, P.A.-C. [address] [place] [phone] Med Refill Social History Tobacco Use Types Packs/Day Years Used Date Smoking Tobacco: Former Cigarettes 1 - 10/12/2021 Passive Smoke Exposure: Never Smokeless Tobacco: Never Comments:No longer smoke Alcohol Use Standard Drinks/Week Comments Never 0 (1 standard drink = 0.6 oz pure alcohol) Havent had any alcohol in about a year or so. [facility] Utilities Answer Date Recorded In the past 12 months has [facility] electric, gas, oil, or water [employer] threatened to shut off services in your [...] How often do you attend chur or mormonism services? Patient declined 02/10/2022 Do [...] Answer Date Recorded PHQ-2 Score 0 08/11/2024 [facility] [place] of Occupat ional Health - Occupational Stress [...] a [facility] to live 07/25/2024 Education Answer Date Recorded What is the highest level of school you have completed or the highest degree you have received? Associate degree: occupational, technical, or vocational program 07/16/2021 Comments No Sex and Gender Information Value Date Recorded Sex Assigned at Female 04/12/2021 7:39 PM CLERICAL INVESTIGATOR Legal Sex Female 7:53 PM CLERICAL INVESTIGATOR Gender Identity Female 04/12/2021 7:39 PM CLERICAL INVESTIGATOR Sexual Orientation Straight 04/12/2021 7: 39 PM CLERICAL INVESTIGATOR documented as of this encounter Miscellaneous Notes * Telephone Encounter - Meena Luz R.N. - 07/17/2024 4:40 PM CDT Material Yard Clerk relayed message from Ana Red regarding Dilaudid RX refill: Please let the patient know this has been prescribed in please continue to use this very sparingly. documented in this encounter Plan of Treatment Upcoming Encounters Date Type Department Care Team (Latest Contact Info) Description 09/14/2024 11:00 AM CDT Appointment Department of Radiology, [facility] in [place], [place] [address] [place] [phone] Noreen Ansari P.A.-C., M.S. [address] [place] [phone] Jesus Figueroa M.D. [address] [place] [phone] 09/14/2024 4:00 PM CDT Telemedicine Division of Pulmonary Medicine in [place], [place] [address] [place] [phone] Ben Dickson APRN, C.N.P. [address] [place] [phone] 09/15/2024 8:00 AM CDT Lab Department of Laboratory Medicine and Pathology, [facility] in [place], [place] [address] [place] [phone] Edgar Montgomery M.B.B.S., M.S. [address] [place] [phone] 09/15/2024 10:00 AM CDT Comprehensive Visit Ramirez Landon [facility] for Transplantation and Clinical Regeneration in [place], [place] [address] [place] [address] Edgar Montgomery M.B.B.S., M.S. [address] [place] [phone] Miriam Strickland M.D. [address] [place] [address] 09/15/2024 11:00 AM CDT Office Visit Ramirez Navarrete [facility] for Transplantation and Clinical Regeneration in [place], [place] [address] [place] [address] Edgar Montgomery M.B.B.S., M.S. [address] [place] [address] Discharge Disposition: Home or Self Care 09/15/2024 1:45 PM CDT Infusion Department of Infusion Therapy in [place], [place] [address] [place] [address] Juan Pete M.D. [address] [place] [phone] 09/18/2024 2:15 PM CDT Hospital Encounter Department of Radiology, [facility] in [place], [place] [address] [place] [address] Edgar Montgomery M.B.B.S., M.S. [address] [place] [phone] 09/20/2024 3:00 PM CDT Comprehensive [facility] in [place], [place] [address] [place] [address] Catia Quintana APRN, C.N.P. [address] [place] [phone] 10/03/2024 9:00 AM CDT Appointment Department of Radiology, [facility], in [place], [place] [address] [place] [address] Marisabel Carpenter APRN, C.N.PSuma, D.N.P. [address] [place] [phone] 10/05/2024 12:00 PM CDT Appointment Division of Pulmonary Medicine in [place], [place] [address] [place] [address] Edgar Montgomery M.B.B.S., M.S. [address] [place] [phone] 10/10/2024 7:50 AM CDT Lab Department of Laboratory Medicine and Pathology, [place], [place] [address] [place] [address] Marisabel Carpenter APRN, C.N.PSuma, D.N.P. [address] [place] [phone] 10/10/2024 8:00 AM CDT Lab Department of Laboratory Medicine and Pathology, [facility] in [place], [place] [address] [place] [address] Marisabel Carpenter APRN, C.N.PSuma, D.N.P. [address] [place] [phone] 10/10/2024 8:30 AM CDT Nurse Only Ramirez Nguyen [facility] Transplantation [facility] Clinical Regeneration in [place], [place] [address] [place] [address] Marisabel Carpenter APRN, C.N.P., D.N.P. [address] [place] [phone] 10/10/2024 9:20 AM CDT Appointment Department of Radiology, [facility] in [place], [place] [address] [place] [address] Marisabel Carpenter APRN, C.N.PSuma, D.N.P. [address] [place] [address] 10/10/2024 9:45 AM CDT Appointment Department of Laboratory Medicine and Pathology, [facility] in [place], [place] [address] [place] [address] Marisabel Carpenter APRN, C.N.PSuma, D.N.P. [address] [place] [phone] 10/10/2024 1:30 PM CDT Appointment Department of Radiology, [facility] in [place], [place] [address] [place] [address] Marisabel Carpenter APRN, C.N.PSuma, D.N.P. [address] [place] [phone] 10/10/2024 2:45 PM CDT Appointment Department of Radiology, [facility] in [place], [place] [address] [place] [address] Marisabel Carpenter APRN, Katrin.N.PSuma, D.N.P. [address] [place] [phone] 10/11/2024 8:00 AM CDT [facility] in [place], [place] [address] [place] [address] Marisabel Carpenter APRN, C.N.PSuma, D.N.P. [address] [place] [phone] 10/11/2024 11:00 AM CDT Comprehensive [facility] in [place], [place] [address] [place] [phone] Sree Devlin M.D. [address] [place] [phone] 10/11/2024 1:00 PM CDT Comprehensive Visit Department of Otorhinolaryngology in [place], [place] [address] [place] [address] Randal Urbano P.A.-C., M.S. [address] [place] [phone] 10/11/2024 2:00 PM CDT [facility] in [place], [place] [address] [place] [address] Hiro Murillo P.A.-C. [address] [place] [phone] 10/11/2024 4:00 PM CDT Comprehensive Visit Department of Dermatology in [place], [place] [address] [place] [phone] Parul Martinez M.D. [address] [place] [phone] 10/12/2024 8:00 AM CDT Telemedicine [facility] in [place], [place] [address] [place] [address] Ervin Mckeon D.O. [address] [place] [phone] 11/01/2024 2:15 PM CDT Appointment Division of Pulmonary Medicine in [place], [place] [address] [place] [phone] Edgar Montgomery M.B.B.S., M.S. [address] [place] [phone] documented as of this encounter Visit Diagnoses Diagnosis Chronic Pain Syndrome documented in this encounter Additional Health Concerns Infection Onset Date Last Indicated Resolved Time Protective Environment 10/10/2022 10/10/2022 Assessment Noted Time PHQ-9 Depression Total Score: 4 06/18/19 24 12:20 PM CLERICAL INVESTIGATOR documented as of this encounter Care Teams Traffic Clerk Relationship Specialty Start Date End Date Ana Red MPAS, P.A.-C. [address] [place] [address] PCP - General Internal Medicine 12/01/21 [facility] [place] [facility] 08/25/21 documented as of this encounter
--- OUTSIDE RECORDS SUMMARY | 2024-09-14 01:32 | XMS_ITS | Encounter Summary ---
Author Organization [facility] Address [address] [place] [address] Care Team Providers Care Bellhop Name Role Phone Ana Red P.A.-C. Primary Care Pro vider Reason for Visit * Episode Based Medications (Routine) - Closed Specialty Diagnoses / Procedures Referred By Meir t Referred To Contact Diagnoses Rejection Graft Acute Procedures AR ANTITHYMOCYTE GLOBULN RABBIT Edgar Montgomery M.B.B.S., M.S. [address] [place] [phone] Phone: tel: fax: Edgar Montgomery M.Karan.B.S., M.S. [address] [place] [phone] Phone: tel: fax: Referral ID Status Reason Start Date Expiration Date Visits Re quested Visits Authorized [id number] Closed 09/11/2024 05/02/2025 12 12 Encounter Details Date Type Department Care Team (Late st Contact Info) Description 09/11/2024 2:15 PM CDT Infusion Department of Infusion Therapy in [place], [place] [address] [place] [phone] Edgar Montgomery M.B.B.S., M.S. [address] [place] [phone] Rejection Graft Acute (Primary Dx); Swelling Arm; [...] in about a year or so. [facility] [employer]ger Mapsities Answer Date Recorded In the past 12 months has e [employer], gas, oil, or water [employer] threatened to shut off services in your [...] Answer Date Recorded PHQ-2 Score 0 08/11/2024 [facility] [place] of Occupat ional Health - Occupational [...] Sex Assigned at Female 04/12/2021 7:39 PM CAD LIBRARIAN Legal Sex Female 7:53 PM CAD LIBRARIAN Gender Identity Female 04/12/2021 7:39 PM CAD LIBRARIAN Sexual Orientation Straight 04/12/2021 7: 39 PM CAD LIBRARIAN documented as of this encounter Last Filed [...] in this encounter Progress Notes * Sandoval Diza R.N. - 09/11/2024 2:15 PM CDT Catia Brunson here in [facility] for Thymoglobulin infusion today 09/11/24. Upon baseline [...] to be drawn while patient here in [facility]. Labs were collected and infusion was started. [...] 11:00 AM CDT Appointment Department of Radiology, [facility], in [place], [place] [address] [place] [phone] Noreen Ansari, P.A.-C., M.S. [address] [place] [phone] Jesus Figueroa M.D. [address] [place] [phone] 09/14/2024 4:00 PM CDT Telemedicine Division of Pulmonary Medicine in [place], [place] [address] [place] [phone] Ben Dickson APRN, C.N.P. [address] [place] [phone] 09/15/2024 8:00 AM CDT Lab Department of Laboratory Medicine and Pathology, [facility] in [place], [place] [address] [place] [phone] Edgar Montgomery M.B.BSumaSSuma, M.S. [address] [place] [phone] 09/15/2024 10:00 AM CDT Comprehensive Visit [facility] for Transplantation and Clinical Regeneration in [place], [place] [address] [place] [phone] Edgar Montgomery M.B.B.SSuma, M.S. [address] [place] [phone] Miriam Strickland M.D. [address] [place] [phone] 09/15/2024 11:00 AM CDT Office Visit [facility] Transplantation and Clinical Regeneration in [place], [place] [address] [place] [address] Edgar Montgomery M.B.B.S., M.S. [address] [place] [phone] Discharge Disposition: Home or Self Care 09/15/2024 1:45 PM CDT Infusion Department of Infusion Therapy in [place], [place] [address] [place] [phone] Juan Pete M.D. [address] [place] [phone] 09/18/2024 2:15 PM CDT Hospital Encounter Department of Radiology, [facility], in [place], [place] [address] [place] [address] Edgar Montgomery M.B.B.S., M.S. [address] [place] [phone] 09/20/2024 3:00 PM CDT Comprehensive Visit [facility] for Transplantation and Clinical Regeneration in [place], [place] [address] [place] [address] Catia Quintana APRN, C.N.P. [address] [place] [phone] 10/03/2024 9:00 AM CDT Appointment Department of Radiology, [facility] in [place], [place] [address] [place] [address] Marisabel Carpenter APRN, C.N.P., D.N.P. [address] [place] [phone] 10/05/2024 12:00 PM CDT Appointment Division of Pulmonary Medicine in [place], [place] [address] [place] [address] Edgar Montgomery M.B.B.S., M.S. [address] [place] [phone] 10/10/2024 7:50 AM CDT Lab Department of Laboratory Medicine and Pathology, [facility] in [place], [place] [address] [place] [address] Marisabel Carpenter APRN, C.N.P., D.N.P. [address] [place] [phone] 10/10/2024 8:00 AM CDT Lab Department of Laboratory Medicine and Pathology, [facility] in [place], [place] [address] [place] [address] Marisabel Carpenter APRN, C.N.P., D.N.P. [address] [place] [phone] 10/10/2024 8:30 AM CDT Nurse Only [facility] in [place], [place] [address] [place] [address] Marisabel Carpenter APRN, C.N.PSuma, D.N.P. [address] [place] [phone] 10/10/2024 9:20 AM CDT Appointment Department of Radiology, [facility] in [place], [place] [address] [place] [address] Marisabel Carpenter APRN, Katrin.N.PSuma, D.N.P. [address] [place] [phone] 10/10/2024 9:45 AM CDT Appointment Department of Laboratory Medicine and Pathology, [facility] in [place], [place] [address] [place] [address] Marisabel Carpenter APRN, C.N.P., D.N.P. [address] [place] [phone] 10/10/2024 1:30 PM CDT Appointment Department of Radiology, [facility] in [place], [place] [address] [place] [address] Marisabel Carpenter APRN, C.N.P., D.N.P. [address] [place] [phone] 10/10/2024 2:45 PM CDT Appointment Department of Radiology, [facility], in [place], [place] [address] [place] [phone] PinMarisabel lara APRN, C.NSumaPSuma, D.N.P. [address] [place] [phone] 10/11/2024 8:00 AM CDT Office Visit [facility] for Transplantation and Clinical Regeneration in [place], [place] [address] [place] [address] Marisabel Carpenter APRN, C.NLala., D.N.P. [address] [place] [phone] 10/11/2024 11:00 AM CDT Comprehensive Visit [facility] for Transplantation and Clinical Regeneration in [place], [place] [address] [place] [address] Sree Devlin M.D. [address] [place] [phone] 10/11/2024 1:00 PM CDT Comprehensive Visit Department of Otorhinolaryngology in [place], [place] [address] [place] [address] Randal Urbano, P.A.-C., M.S. [address] [place] [phone] 10/11/2024 2:00 PM CDT Office Visit [facility] for Transplantation and Clinical Regeneration in [place], [place] [address] [place] [address] Hiro Murillo P.A.-C. [address] [place] [phone] 10/11/2024 4:00 PM CDT Comprehensive Visit Department of Dermatology in [place], [place] [address] [place] [address] Parul Martinez M.D. [address] [place] [phone] 10/12/2024 8:00 AM CDT Telemedicine Ramirez diaz [facility] for Transplantation and Clinical Regeneration in [place], [place] [address] [place] [phone] Ervin Mckeon D.O. [address] [place] [phone] 11/01/2024 2:15 PM CDT Appointment Division of Pulmonary Medicine in [place], [place] [address] [place] [phone] Edgar Montgomery M.B.B.S., M.S. [address] [place] [phone] Pending Results Name Type Priority Associated Diagnoses Date /Time Bacteria / Ines Culture, Blood #2 Microbiology Routine Swelling Arm Rejection Liver Transplant (HCC) 09/11/2024 4:48 PM CDT Bacteria / Ines Culture, Blood #1 Microbiology Routine Swelling Arm Rejection Liver Transplant (HCC) 09/11/2024 4:45 PM CDT documented as of this encounter Procedures Procedure [...] (HCC) documented in this encounter Results * (ABNORMAL) Basic Metabolic Panel (09/11/2024 4:47 PM CDT) Potassium, S 3.2(L) 3.6 - 5.2 mmol/L [...] M.S. LAB BLOOD ADD-ON Final Res ult [facility] [address] [place] [address], [facility] [address] [place] [address] * (ABNORMAL) Hepatic Function Panel (09/11/2024 4:47 [...] M.S. LAB BLOOD ADD-ON Final Res ult [facility] [address] [place] [address], [facility] [address] [place] [address] * (ABNORMAL) CBC with Differential, Blood (09/11/2024 4:46 PM CDT) Hemoglobin 12.1 11.6 - 15.0 g/dL 09/11/2024 [...] 4:46 PM CDT 09/11/2024 5:01 PM CDT us Michelle Luz M.D., M.S. LAB BLOOD ADD-ON Final Res ult [facility] [address] [place] [address], [facility] DTL [facility] [address] [place] [address] DHPM [facility] [address] [place] [address] documented in this encounter Visit Diagnoses Diagnosis Rejection Graft Acute- Primary Swelling Arm Rejection Liver Transplant (HCC) Abdominal Pain documented in this encounter Administered Medications Inactive Administered Medications - up to 3 most recent administrations Medication Order MAR Action Action Date Dose Rate Site acetaminophen tablet 650 mg (TylenoL) 650 mg, oral, Once, On 09/11/24 at 1515, For 1 dose, Prior to each dose of anti-thymocyte globulinIndications:Rejection Graft Acute Given 09/11/2024 3:03 PM CDT 650 mg anti-thymocyte globulin rabbit 75 mg, hydrocortisone sodium succinate (PF) 12.5 mg, heparin (porcine) 500 Units in NaCl 0.9% 265.75 mL IVPB (Thymoglobulin) 75 mg (rounded from 68.55 mg = 1.5 mg/kg 45.7 kg [place] weight), intravenous, at 66.4 mL/hr, Administer over [...] intravenous, As needed, line care, Starting on Wed09/11/24 at 1544, Prior to and following infusion [...] documented as of this encounter Care Teams Bellhop Relationship Specialty Start Date End Date Ana Red MPAS, P.A.-C. [address] [facility] [phone] PCP - General Internal Medicine 12/01/21 [facility] [place] lab 08/25/21 documented as of this encounter
--- OUTSIDE RECORDS SUMMARY | 2024-09-14 01:32 | XMS_ITS | Encounter Summary ---
Author Organization [facility] Address [address] [place] [id number] Care Team Providers Care Community Midwife Name Role Phone Ana Red P.A.-C. Primary Care Pro vider Reason for Visit * Transplant (Routine) - Closed Specialty Diagnoses / Procedures Referred By Meir lara Referred To Contact Transplant Diagnoses Transplant Liver (HCC) Medication Therapy [facility] Not 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 Elevated Liver Function Test Migue Escobar M.D. [address] [place] [phone] Phone: tel: fax: [facility] Referral ID Status Reason Start Date Expiration Date Visits Re quested Visits Authorized [id number] Closed 08/31/2024 03/02/2026 1 1 Encounter Details Date Type Department Care Team (Latest Contact Info) Description 09/06/2024 3:00 PM CDT Telemedicine Ramirez diaz [facility] for Transplantation and Clinical Regeneration in [place], [place] [address] [place] [phone] Migue Escobar M.D. [address] [place] [phone] Transplant Liver (HCC); Medication Therapy Scheduling Assistant Not 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; Elevated Liver Function Test Social History Tobacco Use Types Packs/Day Years Used Date Smoking Tobacco: Former Cigarettes 1 - 10/12/2021 Passive Smoke Exposure: Never Smokeless Tobacco: Never Comments:Smoked cigarettes f rom age 18-30 about Alcohol Use Standard Drinks/Week Comments Never 0 (1 standard drink = 0.6 oz pure alcohol) Havent had any alcohol in about a year or so. [facility] Utilities Answer Date Recorded In the past 12 months has th e real trends, gas, oil, or water [employer] threatened to shut off services in your [...] How often do you attend chur or congregational services? Patient declined 02/10/2022 Do you belong [...] Date Recorded PHQ-2 Score 0 08/11/2024 [facility] - Occupational [...] your living situation today? I have a [facility] place to live 08/22/2024 Education Answer Date Recorded What is the highest level of school you have completed or the highest degree you have received? Associate degree: occupational, technical, or vocational program 07/16/2021 Comments No Sex and Gender Information Value Date Recorded Sex Assigned at Female 04/12/2021 7:39 PM PAPER CONE MACHINE OPERATOR Legal Sex Female 7:53 PM PAPER CONE MACHINE OPERATOR Gender Identity Female 04/12/2021 7:39 PM PAPER CONE MACHINE OPERATOR Sexual Orientation Straight 04/12/2021 7: 39 PM PAPER CONE MACHINE OPERATOR documented as of this encounter [...] Migue Escobar M.D. CT CT Job ID: [id number] documented in this encounter Plan of Treatment Upcoming Encounters Date Type Department Care Team (Latest Contact Info) Description 09/14/2024 11:00 AM CDT Appointment Department of Radiology, [facility], in [place], [place] [address] [place] [address] Noreen Ansari P.A.-C., M.S. [address] [place] [phone] Jesus Figueroa M.D. [address] [place] [phone] 09/14/2024 4:00 PM CDT Telemedicine Division of Pulmonary Medicine in [place], [place] [address] [place] [address] Ben Dickson APRN, C.N.P. [address] [place] [phone] 09/15/2024 8:00 AM CDT Lab Department of Laboratory Medicine and Pathology, [facility] in [place], [place] [address] [place] [address] Edgar Montgomery M.B.B.S., M.S. [address] [place] [phone] 09/15/2024 10:00 AM CDT Comprehensive Visit Ramirez Nguyen [facility] for Transplantation and Clinical Regeneration in [place], [place] [address] [place] [address] Edgar Montgomery M.B.B.S., M.S. [address] [place] [phone] Miriam Strickland M.D. [address] [place] [phone] 09/15/2024 11:00 AM CDT Office Visit [facility] for Transplantation and Clinical Regeneration in [place], [place] [address] [place] [address] Edgar Montgomery M.B.B.S., M.S. [address] [place] [phone] Discharge Disposition: Home or Self Care 09/15/2024 1:45 PM CDT Infusion Department of Infusion Therapy in [place], [place] [address] [place] [address] Juan Pete M.D. [address] [place] [phone] 09/18/2024 2:15 PM CDT Hospital Encounter Department of Radiology, [facility] in [place], [place] [address] [place] [address] Edgar Montgomery M.B.B.S., M.S. [address] [place] [phone] 09/20/2024 3:00 PM CDT Comprehensive Visit [facility] for Transplantation and Clinical Regeneration in [place], [place] [address] [place] [phone] Catia Quintana APRN, C.N.P. [address] [place] [phone] 10/03/2024 9:00 AM CDT Appointment Department of Radiology, [facility], in [place], [place] [address] [place] [address] Marisabel Carpenter APRN, C.N.P., D.N.P. [address] [place] [phone] 10/05/2024 12:00 PM CDT Appointment Division of Pulmonary Medicine in [place], [place] [address] [place] [address] Edgar Montgomery M.B.B.S., M.S. [address] [place] [phone] 10/10/2024 7:50 AM CDT Lab Department of Laboratory Medicine and Pathology, [facility] in [place], [place] [address] [place] [address] Marisabel Carpenter APRN, C.N.P., D.N.P. [address] [place] [phone] 10/10/2024 8:00 AM CDT Lab Department of Laboratory Medicine and Pathology, [facility] in [place], [place] [address] [place] [address] Marisabel Carpenter APRN, C.N.P., D.N.P. [address] [place] [phone] 10/10/2024 8:30 AM CDT Nurse Only Ramirez Nguyen [facility] for Transplantation and Clinical Regeneration in [place], [place] [address] [place] [address] Marisabel Carpenter APRN, C.N.P., D.N.P. [address] [place] [phone] 10/10/2024 9:20 AM CDT Appointment Department of Radiology, [facility] in [place], [place] [address] [place] [address] Marisabel Carpenter APRN, C.N.P., D.N.P. [address] [place] [phone] 10/10/2024 9:45 AM CDT Appointment Department of Laboratory Medicine and Pathology, [facility] in [place], [place] [address] [place] [address] Marisabel Carpenter APRN, Katrin.N.PSuma, D.N.P. [address] [place] [phone] 10/10/2024 1:30 PM CDT Appointment Department of Radiology, [facility] in [place], [place] [address] [place] [address] Marisabel Carpenter APRN, C.N.PSuma, D.N.P. [address] [place] [phone] 10/10/2024 2:45 PM CDT Appointment Department of Radiology, [facility] in [place], [place] [address] [place] [address] Marisabel Carpenter APRN, Katrin.N.PSuma, D.N.P. [address] [place] [phone] 10/11/2024 8:00 AM CDT [facility] in [place], [place] [address] [place] [address] Marisabel Carpenter APRN, C.N.PSuma, D.N.P. [address] [place] [phone] 10/11/2024 11:00 AM CDT Comprehensive Visit [facility] for Transplantation and Clinical Regeneration in [place], [place] [address] [place] [address] Sree Devlin M.D. [address] [place] [phone] 10/11/2024 1:00 PM CDT Comprehensive Visit Department of Otorhinolaryngology in [place], [place] [address] [place] [phone] Randal Urbano P.A.-C., M.S. [address] [place] [phone] 10/11/2024 2:00 PM CDT Office Visit [facility] for Transplantation and Clinical Regeneration in [place], [place] [address] [place] [phone] Hiro Murillo P.A.-C. [address] [place] [phone] 10/11/2024 4:00 PM CDT Comprehensive Visit Department of Dermatology in [place], [place] [address] [place] [phone] Parul Martinez M.D. [address] [place] [phone] 10/12/2024 8:00 AM CDT Telemedicine [facility] Transplantation and Clinical Regeneration in [place], [place] [address] [place] [phone] Ervin Mckeon D.O. [address] [place] [phone] 11/01/2024 2:15 PM CDT Appointment Division of Pulmonary Medicine in [place], [place] [address] [place] [phone] Edgar Montgomery M.B.B.S., M.S. [address] [place] [phone] documented as of this encounter Visit Diagnoses Diagnosis Transplant Liver (HCC) Medication Therapy Scheduling Assistant Not 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 Elevated Liver Function Test documented in this encounter Additional Health Concerns Infection Onset Date Last Indicated Resolved Time Protective Environment 10/10/2022 10/10/2022 Assessment Noted Time PHQ-9 Depression Total Score: 4 08/12/19 25 3:31 PM CDT documented as of this encounter Care Teams Community Midwife Relationship Specialty Start Date End Date Ana Red MPAS, P.A.-C. [address] [facility] [place] [address] PCP - General Internal Medicine 12/01/21 [facility] 08/25/21 documented as of this encounter
--- OUTSIDE RECORDS SUMMARY | 2024-09-14 01:32 | XMS_ITS | Encounter Summary ---
Author Organization [facility] Address [address] [place] [address] Care Team Providers Care Studio Receptionist Name Role Phone Ana Red P.A.-C. Primary Care Pro vider Encounter Details Date Type Department Care Team (Latest Contact Info) Description 09/07/2024 Orders Only Division of Gastroenterology in [place], [place] [address] [place] [phone] Edgar Montgomery M.B.B.S., M.S. [address] [place] [phone] Rejection Graft Acute (Primary Dx) Social History Tobacco Use Types Packs/Day Years Used Date Smoking Tobacco: Former Cigarettes 1 - 10/12/2021 Passive Smoke Exposure: Never Smokeless Tobacco: Never Comments:Smoked cigarettes f rom age 18-30 about Alcohol Use Standard Drinks/Week Comments Never 0 (1 standard drink = 0.6 oz pure alcohol) Havent had any alcohol in about a year or so. [facility] Utilities Answer Date Recorded In the past 12 months has e [employer], gas, oil, or water [employer] threatened to shut off services in your [...] How often do you attend chur or protestant services? Patient declined 02/10/2022 Do you belong to any clubs o r organizations such as anabaptist groups, unions, fraternal [...] Answer Date Recorded PHQ-2 Score 0 08/11/2024 [facility]at ional [facility] - [...] Sex Assigned at Female 04/12/2021 7:39 PM STRATEGIC ACCOUNTS MANAGER Legal Sex Female 7:53 PM STRATEGIC ACCOUNTS MANAGER Gender Identity Female 04/12/2021 7:39 PM STRATEGIC ACCOUNTS MANAGER Sexual Orientation Straight 04/12/2021 7: 39 PM STRATEGIC ACCOUNTS MANAGER documented as of this encounter Plan of Treatment Upcoming Encounters Date Type Department Care Team (Latest Contact Info) Description 09/14/2024 11:00 AM CDT Appointment Department of Radiology, [facility], in [place], [place] [address] [place] [address] Noreen Ansari P.A.-C., M.S. [address] [place] [phone] Jesus Figueroa M.D. [address] [place] [phone] 09/14/2024 4:00 PM CDT Telemedicine Division of Pulmonary Medicine in [place], [place] [address] [place] [phone] Ben Dickson APRN, CSumaNSumaP. [address] [place] [phone] 09/15/2024 8:00 AM CDT Lab Department of Laboratory Medicine and Pathology, [facility] in [place], [place] [address] [place] [phone] Edgar Montgomery M.B.B.S., M.S. [address] [place] [phone] 09/15/2024 10:00 AM CDT Comprehensive Visit [facility] for Transplantation and Clinical Regeneration in [place], [place] [address] [place] [phone] Edgar Montgomery M.B.B.S., M.S. [address] [place] [phone] Miriam Strickland M.D. [address] [place] [phone] 09/15/2024 11:00 AM CDT Office Visit [facility] for Transplantation and Clinical Regeneration in [place], [place] [address] [place] [address] Edgar Montgomery M.B.B.S., M.S. [address] [place] [phone] Discharge Disposition: Home or Self Care 09/15/2024 1:45 PM CDT Infusion Department of Infusion Therapy in [place], [place] [address] [place] [address] Juan Pete M.D. [address] [place] [phone] 09/18/2024 2:15 PM CDT Hospital Encounter Department of Radiology, [facility] in [place], [place] [address] [place] [address] Edgar Montgomery M.B.B.S., M.S. [address] [place] [phone] 09/20/2024 3:00 PM CDT Comprehensive Visit [facility] for Transplantation and Clinical Regeneration in [place], [place] [address] [place] [phone] Catia Quintana APRN, C.N.P. [address] [place] [phone] 10/03/2024 9:00 AM CDT Appointment Department of Radiology, [facility], in [place], [place] [address] [place] [address] Marisabel Carpenter APRN, C.N.P., D.N.P. [address] [place] [phone] 10/05/2024 12:00 PM CDT Appointment Division of Pulmonary Medicine in [place], [place] [address] [place] [phone] Edgar Montgomery M.B.B.S., M.S. [address] [place] [phone] 10/10/2024 7:50 AM CDT Lab Department of Laboratory Medicine and Pathology, [facility] in [place], [place] [address] [place] [address] Marisabel Carpenter APRN, C.N.P., D.N.P. [address] [place] [phone] 10/10/2024 8:00 AM CDT Lab Department of Laboratory Medicine and Pathology, [facility] in [place], [place] [address] [place] [address] Marisaebl Carpenter APRN, C.N.P., D.N.P. [address] [place] [phone] 10/10/2024 8:30 AM CDT Nurse Only [facility] in [place], [place] [address] [place] [address] Marisabel Carpenter APRN, C.N.P., D.N.P. [address] [place] [phone] 10/10/2024 9:20 AM CDT Appointment Department of Radiology, [facility] in [place], [place] [address] [place] [address] Marisabel Carpenter APRN, C.N.P., D.N.P. [address] [place] [phone] 10/10/2024 9:45 AM CDT Appointment Department of Laboratory Medicine and Pathology, [facility] in [place], [place] [address] [place] [address] Marisabel Carpenter APRN, C.N.P., D.N.P. [address] [place] [phone] 10/10/2024 1:30 PM CDT Appointment Department of Radiology, [facility] in [place], [place] [address] [place] [address] Marisabel Carpenter APRN, C.N.PSuma, D.N.P. [address] [place] [phone] 10/10/2024 2:45 PM CDT Appointment Department of Radiology, [facility], in [place], [place] [address] [place] [address] Marisabel Carpenter APRN, C.NDayne, D.N.P. [address] [place] [phone] 10/11/2024 8:00 AM CDT Office Visit [facility] for Transplantation and Clinical Regeneration in [place], [place] [address] [place] [address] Marisabel Carpenter APRN, C.N.PSuma, D.N.P. [address] [place] [phone] 10/11/2024 11:00 AM CDT Comprehensive Visit [facility] for Transplantation and Clinical Regeneration in [place], [place] [address] [place] [address] Sree Devlin M.D. [address] [place] [phone] 10/11/2024 1:00 PM CDT Comprehensive Visit Department of Otorhinolaryngology in [place], [place] [address] [place] [address] Randal Urbano P.A.-C., M.S. [address] [place] [phone] 10/11/2024 2:00 PM CDT Office Visit [facility] Transplantation and Clinical Regeneration in [place], [place] [address] [place] [phone] Hiro Murillo P.A.-C. [address] [place] [phone] 10/11/2024 4:00 PM CDT Comprehensive Visit Department of Dermatology in [place], [place] [address] [place] [phone] Parul Martinez M.D. [address] [place] [phone] 10/12/2024 8:00 AM CDT Telemedicine [facility] Transplantation and Clinical Regeneration in [place], [place] [address] [place] [phone] Ervin Mckeon D.O. [address] [place] [phone] 11/01/2024 2:15 PM CDT Appointment Division of Pulmonary Medicine in [place], [place] [address] [place] [phone] Edgar Montgomery M.B.BSumaS., M.S. [address] [place] [phone] documented as of this encounter Visit Diagnoses Diagnosis Rejection Graft Acute- Primary documented in this encounter Additional Health Concerns Infection Onset Date Last Indicated Resolved Time Protective Environment 10/10/2022 10/10/2022 Assessment Noted Time PHQ-9 Depression Total Score: 4 08/12/19 25 3:31 PM CDT documented as of this encounter Care Teams Studio Receptionist Relationship Specialty Start Date End Date Ana Red MPAS, P.A.-C. 300 [facility] [place] [address] PCP - General Internal Medicine 12/01/21 [facility] [place] [facility] 08/25/21 documented as of this encounter
--- OUTSIDE RECORDS SUMMARY | 2024-09-14 01:32 | XMS_ITS | Encounter Summary ---
Author Organization [facility] Address [address] [place] [address] Care Team Providers Care Surgical Technology Instructor Name Role Phone Ana Red P.A.-C. Primary Care Pro vider Encounter Details Date Type Department Care Team (Late st Contact Info) Description 09/05/2024 Orders Only Ramirez diaz [facility] in [place], [place] [address] [place] [phone] Migue Escobar M.D. [address] [place] [phone] Rejection Liver Transplant (HCC) (Primary Dx) Social History Tobacco Use Types Packs/Day Years Used Date Smoking Tobacco: Former Cigarettes 1 - 10/12/2021 Passive Smoke Exposure: Never Smokeless Tobacco: Never Comments:Smoked cigarettes f rom age 18-30 about Alcohol Use Standard Drinks/Week Comments Never 0 (1 standard drink = 0.6 oz pure alcohol) Havent had any alcohol in about a year or so. [facility] Utilities Answer Date Recorded In the past 12 months has th e electric, gas, oil, or water [employer] threatened to shut off services in your [...] How often do you attend chur or mormon services? Patient declined 02/10/2022 Do you belong [...] Answer Date Recorded PHQ-2 Score 0 08/11/2024 [facility] [place] of Occupat ional Health - Occupational Stress [...] living situation today? I have a [facility] place to live 09/09/2024 Education Answer Date Recorded What is the highest level of school you have completed or the highest degree you have received? Associate degree: occupational, technical, or vocational program 07/16/2021 Comments No Sex and Gender Information Value Date Recorded Sex Assigned at Female 04/12/2021 7:39 PM J2EE APPLICATION DEVELOPER Legal Sex Female 7:53 PM J2EE APPLICATION DEVELOPER Gender Identity Female 04/12/2021 7:39 PM J2EE APPLICATION DEVELOPER Sexual Orientation Straight 04/12/2021 7: 39 PM J2EE APPLICATION DEVELOPER documented as of this encounter Plan of Treatment Upcoming Encounters Date Type Department Care Team (Latest Contact Info) Description 09/14/2024 11:00 AM CDT Appointment Department of Radiology, [facility], in [place], [place] [address] [place] [address] Noreen Ansari P.A.-C., M.S. [address] [place] [phone] Jesus Figueroa M.D. [address] [place] [phone] 09/14/2024 4:00 PM CDT Telemedicine Division of Pulmonary Medicine in [place], [place] [address] [place] [address] Ben Dickson APRN, CSumaN.P. [address] [place] [phone] 09/15/2024 8:00 AM CDT Lab Department of Laboratory Medicine and Pathology, [facility], in [place], [place] [address] [place] [address] Edgar Montgomery M.B.B.S., M.S. [address] [place] [phone] 09/15/2024 10:00 AM CDT Comprehensive Visit [facility] in [place], [place] [address] [place] [address] Edgar Montgomery M.B.B.S., M.S. [address] [place] [phone] Miriam Strickland M.D. [address] [place] [phone] 09/15/2024 11:00 AM CDT Office Visit [facility] in [place], [place] [address] [place] [address] Edgar Montgomery M.B.B.S., M.S. [address] [place] [phone] Discharge Disposition: Home or Self Care 09/15/2024 1:45 PM CDT Infusion Department of Infusion Therapy in [place], [place] [address] [place] [address] Juan Pete M.D. [address] [place] [phone] 09/18/2024 2:15 PM CDT Hospital Encounter Department of Radiology, [facility] in [place], [place] [address] [place] [address] Edgar Montgomery M.B.B.S., M.S. [address] [place] [phone] 09/20/2024 3:00 PM CDT Comprehensive Visit [facility] [place], [place] [address] [place] [phone] Catia Quintana APRN, C.N.P. [address] [place] [phone] 10/03/2024 9:00 AM CDT Appointment Department of Radiology, [facility], in [place], [place] [address] [place] [phone] Marisabel Carpenter APRN, C.N.P., D.N.P. [address] [place] [phone] 10/05/2024 12:00 PM CDT Appointment Division of Pulmonary Medicine in [place], [place] [address] [place] [phone] Edgar Montgomery M.B.B.S., M.S. [address] [place] [phone] 10/10/2024 7:50 AM CDT Lab Department of Laboratory Medicine and Pathology, [facility] in [place], [place] [address] [place] [address] Marisabel Carpenter APRN, C.N.P., D.N.P. [address] [place] [phone] 10/10/2024 8:00 AM CDT Lab Department of Laboratory Medicine and Pathology, [facility] in [place], [place] [address] [place] [address] Marisabel Carpenter APRN, C.N.P., D.N.P. [address] [place] [phone] 10/10/2024 8:30 AM CDT Nurse Only Ramirez diaz [facility] in [place], [place] [address] [place] [address] Marisabel Carpenter APRN, C.N.P., D.N.P. [address] [place] [phone] 10/10/2024 9:20 AM CDT Appointment Department of Radiology, [facility] in [place], [place] [address] [place] [address] Marisabel Carpenter APRN, C.N.P., D.N.P. [address] [place] [phone] 10/10/2024 9:45 AM CDT Appointment Department of Laboratory Medicine and Pathology, [facility] in [place], [place] [address] [place] [address] Marisabel Carpenter APRN, C.N.P., D.N.P. [address] [place] [address] 10/10/2024 1:30 PM CDT Appointment Department of Radiology, [facility] in [place], [place] [address] [place] [address] Marisabel Carpenter APRN, C.N.PSuma, D.N.P. [address] [place] [phone] 10/10/2024 2:45 PM CDT Appointment Department of Radiology, [facility], in [place], [place] [address] [place] [address] Marisabel Carpenter APRN, C.N.Frances, D.N.P. [address] [place] [phone] 10/11/2024 8:00 AM CDT Office Visit [facility] in [place], [place] [address] [place] [address] Marisabel Carpenter APRN C.N.PSuma, D.N.P. [address] [place] [phone] 10/11/2024 11:00 AM CDT Comprehensive Visit [facility] in [place], [place] [address] [place] [address] Sree Devlin M.D. [address] [place] [phone] 10/11/2024 1:00 PM CDT Comprehensive Visit Department of Otorhinolaryngology in [place], [place] [address] [place] [address] Randal Urbano P.A.-C., M.S. [address] [place] [address] 10/11/2024 2:00 PM CDT Office Visit [facility] in [place], [place] [address] [place] [address] Hiro Murillo P.A.-C. [address] [place] [phone] 10/11/2024 4:00 PM CDT Comprehensive Visit Department of Dermatology in [place], [place] [address] [place] [phone] Parul Martinez M.D. [address] [place] [phone] 10/12/2024 8:00 AM CDT Telemedicine [facility] Clinical Regeneration in [place], [place] [address] [place] [phone] Ervin Mckeon D.O. [address] [place] [phone] 11/01/2024 2:15 PM CDT Appointment Division of Pulmonary Medicine in [place], [place] [address] [place] [phone] Edgar Montgomery M.B.BSumaS., M.S. [address] [place] [phone] documented as of this encounter Results * (ABNORMAL) AST (Aspartate Aminotransferase) (09/05/2024 11:19 AM CDT) Aspartate Aminotransferase (AST), S 841(H) 8 - 43 U/L 09/06/2024 11:17 AM CDT DTL Blood (Blood, Venous) 09/05/2024 11:19 AM CDT 09/06/2024 10:25 AM CDT us Migue Escobar M.D. LAB BLOOD ADD-ON Final Resu lt [facility] [address] [place] [address], [place] [facility] [address] [place] [address] documented in this encounter Visit Diagnoses Diagnosis Rejection Liver Transplant (HCC)- Primary documented in this encounter Additional Health Concerns Infection Onset Date Last Indicated Resolved Time Protective Environment 10/10/2022 10/10/2022 Assessment Noted Time PHQ-9 Depression Total Score: 4 08/12/19 25 3:31 PM CDT documented as of this encounter Care Teams Surgical Technology Instructor Relationship Specialty Start Date End Date Ana Red MPAS, P.A.-C. [address] [place] [phone] PCP - General Internal Medicine 12/01/21 [facility] 08/25/21 documented as of this encounter
--- OUTSIDE RECORDS SUMMARY | 2024-09-14 01:32 | XMS_ITS | Encounter Summary ---
Author Organization [facility] Address [address] [place] [address] Care Team Providers Care Consumer Loan Specialist Name Role Phone Ana Red P.A.-C. Primary Care Pro vider Reason for Visit * Auth/Cert (Routine) Specialty Diagnoses / Procedures Referred By Meir lara Referred To Contact Diagnoses Transplant Liver (HCC) Medication Therapy Penitentiary Not 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 Elevated Liver Function Test Procedures TXP LIVER BIOPSY Referral ID Status Reason Start Date Expiration Date Visits Re quested Visits Authorized [id number] 1 1 Encounter Details Date Type Department Care Team (Late st Contact Info) Description 09/05/2024 2:15 PM CDT Anesthesia Event [facility], [facility] [address] [place] [address] Mohsen Arias APRN, BOILER INSTALLER [address] [place] [phone] Maria Alejandra Islas APRN, SHANNNO, D.N.P. [address] [place] [phone] Anesthesia Record Procedure Summary Procedure Name Responsible [...] Drains, and Airways Type Details Placement Removal Wound 09/05/24; 1431; N; 09/05/24; Puncture; Abdomen; Lateral, Right, Upper, Quadrant; Liver Bx 09/05/24 1431 by Effie Acosta, R.N. Peripheral IV Placement Date: 10/25; Placement Time: 1331; Catheter Size: 20 G; Orientation: Left, Posterior; Location: Hand; Site Prep: Chlorhexidine (Preferred); Technique: Anatomical landmarks; Inserted by: STEW; Insertion Attempts: 1; Removal Date: 09/05/24; Removal Time: 163; Removal Reason: Patient discharged 09/05/24 1331 by Heather Meza, R.N. 09/05/24 1637 by Nimisha Mitchell, R.N. documented in this encounter Social History Tobacco Use Types Packs/Day Years Used Date Smoking Tobacco: Former Cigarettes 1 - 10/12/2021 Passive Smoke Exposure: Never Smokeless Tobacco: Never Comments:Smoked cigarettes f rom age 18-30 about Alcohol Use Standard Drinks/Week Comments Never 0 (1 standard drink = 0.6 oz pure alcohol) Havent had any alcohol in about a year or so. [facility] Utilities Answer Date Recorded In the past 12 months has e [employer] gas, oil, or water [employer] threatened to shut off services in your [...] How often do you attend chur or anabaptism services? Patient declined 02/10/2022 Do [...] Answer Date Recorded PHQ-2 Score 0 08/11/2024 [facility] [place] of Occupat ional Health - Occupational Stress [...] your living situation today? I have a [facility] place to live 08/22/2024 Education Answer Date Recorded What is the highest level of school you have completed or the highest degree you have received? Associate degree: occupational, technical, or vocational program 07/16/2021 Comments No Sex and Gender Information Value Date Recorded Sex Assigned at Female 04/12/2021 7:39 PM PRINTING MACHINE MECHANIC Legal Sex Female 7:53 PM PRINTING MACHINE MECHANIC Gender Identity Female 04/12/2021 7:39 PM PRINTING MACHINE MECHANIC Sexual Orientation Straight 04/12/2021 7: 39 PM PRINTING MACHINE MECHANIC documented as of this encounter OR Notes * Anesthesia Postprocedure Evaluation - Mohsen Arias, FRACTIONATING STILL OPERATOR, BOILER INSTALLER - 09/05/2024 2:53 PM CDT Patient: Catia Brunson Procedure Summary Date: 09/05/24 Room / Location: [facility] Anesthesia Start: 1415 Anesthesia Stop: 145 Procedure: TXP LIVER BIOPSY Diagnosis: Transplant Liver (HCC) Medication Therapy Special Education Supervisor Not 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 Elevated Liver Function Test Transplant Liver (HCC) Medication Therapy Penitentiary Not 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 Elevated Liver Function Test Scheduled [...] Diagnosis: Transplant Liver (HCC) [Z94.4] Medication Therapy Special Education Supervisor Not 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 [Z79.899] Elevated Liver Function Test [R79.89] Transplant Liver (HCC) [Z94.4] Medication Therapy Special Education Supervisor Not 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 [Z79.899] Elevated Liver Function Test [R79.89] Location: [facility] Pertinent components of the patient's history [...] with patient /legal guardian or through an translator/interpreter. Risks/Benefits/Alternatives of Blood transfusion discussed with patient [...] 11:00 AM CDT Appointment Department of Radiology, [facility], in [place], [place] [address] [place] [phone] Noreen Ansari P.A.-C., M.S. [address] [place] [phone] Jesus Figueroa M.D. [address] [place] [phone] 09/14/2024 4:00 PM CDT Telemedicine Division of Pulmonary Medicine in [place], [place] [address] [place] [address] Ben Dickson, YARITZA, C.N.P. [address] [place] [phone] 09/15/2024 8:00 AM CDT Lab Department of Laboratory Medicine and Pathology, [facility] in [place], [place] [address] [place] [address] Edgar Montgomery M.B.B.S., M.S. [address] [place] [phone] 09/15/2024 10:00 AM CDT Comprehensive [facility] in [place], [place] [address] [place] [address] Edgar Montgomery M.B.B.S., M.S. [address] [place] [phone] Miriam Strickland M.D. [address] [place] [phone] 09/15/2024 11:00 AM CDT Office Visit [facility] in [place], [place] [address] [place] [address] Edgar Montgomery M.B.B.S., M.S. [address] [place] [phone] Discharge Disposition: Home or Self Care 09/15/2024 1:45 PM CDT Infusion Department of Infusion Therapy in [place], [place] [address] [place] [address] Juan Pete M.D. [address] [place] [phone] 09/18/2024 2:15 PM CDT Hospital Encounter Department of Radiology, [facility] in [place], [place] [address] [place] [address] Edgar Montgomery M.B.B.S., M.S. [address] [place] [phone] 09/20/2024 3:00 PM CDT Comprehensive Visit [facility] in [place], [place] [address] [place] [address] Catia Quintana APRN, C.N.P. [address] [place] [phone] 10/03/2024 9:00 AM CDT Appointment Department of Radiology, [facility] in [place], [place] [address] [place] [address] Marisabel Carpenter APRN, C.N.P., D.N.P. [address] [place] [phone] 10/05/2024 12:00 PM CDT Appointment Division of Pulmonary Medicine in [place], [place] [address] [place] [address] Edgar Montgomery M.B.B.S., M.S. [address] [place] [phone] 10/10/2024 7:50 AM CDT Lab Department of Laboratory Medicine and Pathology, [facility] in [place], [place] [address] [place] [address] Marisabel Carpenter APRN, C.N.P., D.N.P. [address] [place] [phone] 10/10/2024 8:00 AM CDT Lab Department of Laboratory Medicine and Pathology, [facility] in [place], [place] [address] [place] [address] Marisabel Carpenter APRN, C.N.P., D.N.P. [address] [place] [phone] 10/10/2024 8:30 AM CDT Nurse Only [facility] in [place], [place] [address] [place] [address] Marisabel Carpenter APRN, C.N.P., D.N.P. [address] [place] [phone] 10/10/2024 9:20 AM CDT Appointment Department of Radiology, [facility] in [place], [place] [address] [place] [address] Marisabel Carpenter APRN, C.N.P., D.N.P. [address] [place] [phone] 10/10/2024 9:45 AM CDT Appointment Department of Laboratory Medicine and Pathology, [facility] in [place], [place] [address] [place] [address] Marisabel Carpenter APRN, C.N.P., D.N.P. [address] [place] [phone] 10/10/2024 1:30 PM CDT Appointment Department of Radiology, [facility] in [place], [place] [address] [place] [address] Marisabel Carpenter APRN, C.N.P., D.N.P. [address] [place] [phone] 10/10/2024 2:45 PM CDT Appointment Department of Radiology, [facility], in [place], [place] [address] [place] [address] Marisabel Carpenter APRN C.N.PSuma, D.N.P. [address] [place] [phone] 10/11/2024 8:00 AM CDT Office Visit [facility] Clinical Reg[facility] in [place], [place] [address] [place] [address] Marisabel Carpenter APRN, C.N.P., D.N.P. [address] [place] [phone] 10/11/2024 11:00 AM CDT Comprehensive Visit [facility] in [place], [place] [address] [place] [address] Sree Devlin M.D. [address] [place] [phone] 10/11/2024 1:00 PM CDT Comprehensive Visit Department of Otorhinolaryngology in [place], [place] [address] [place] [address] Randal Urbano, P.A.-C., M.S. [address] [place] [phone] 10/11/2024 2:00 PM CDT Office Visit [facility] Transplantation and Clinical Regeneration in [place], [place] [address] [place] [phone] Hiro Murillo P.A.-C. [address] [place] [phone] 10/11/2024 4:00 PM CDT Comprehensive Visit Department of Dermatology in [place], [place] [address] [place] [phone] Parul Martinez M.D. [address] [place] [phone] 10/12/2024 8:00 AM CDT Telemedicine [facility] Transplantation and Clinical Regeneration in [place], [place] [address] [place] [phone] Ervin Mckeon D.O. [address] [place] [phone] 11/01/2024 2:15 PM CDT Appointment Division of Pulmonary Medicine in [place], [place] [address] [place] [phone] Edgar Montgomery M.B.B.S., M.S. [address] [place] [phone] documented as of this encounter Visit Diagnoses [...] as of this encounter Care Teams Consumer Loan Specialist Relationship Specialty Start Date End Date Ana Red MPAS, P.A.-C. [address] [place] [address] ADI Chua [phone] PCP - General Internal Medicine 12/01/21 [facility] 08/25/21 documented as of this encounter
--- OUTSIDE RECORDS SUMMARY | 2024-09-14 01:32 | XMS_ITS | Encounter Summary ---
Author Organization [facility] Address [address] [place] [address] Care Team Providers Care Communications Associate Name Role Phone Ana Red, P.A.-C. Primary Care Pro vider Encounter Details Date Type Department Care Team (Late st Contact Info) Description 09/05/2024 Orders Only [facility] MNT Ana Red MPAS, P.A.-C. [address] [place] [phone] Social History Tobacco Use Types Packs/Day Years Used Date Smoking Tobacco: Former Cigarettes 1 - 10/12/2021 Passive Smoke Exposure: Never Smokeless Tobacco: Never Comments:Smoked cigarettes f rom age 18-30 about Alcohol Use Standard Drinks/Week Comments Never 0 (1 standard drink = 0.6 oz pure alcohol) Havent had any alcohol in about a year or so. [facility] Utilities Answer Date Recorded In the past 12 months has [employer], gas, oil, or water company threatened to [...] How often do you attend chur or amish services? Patient declined 02/10/2022 Do [...] situation today? I have a [facility] place to live 09/09/2024 Education Answer Date Recorded What is the highest level of school you have completed or the highest degree you have received? Associate degree: occupational, technical, or vocational program 07/16/2021 Comments No Sex and Gender Information Value Date Recorded Sex Assigned at Female 04/12/2021 7:39 PM TOOL INSPECTOR Legal Sex Female 7:53 PM TOOL INSPECTOR Gender Identity Female 04/12/2021 7:39 PM TOOL INSPECTOR Sexual Orientation Straight 04/12/2021 7: 39 PM TOOL INSPECTOR documented as of this encounter Plan of Treatment Upcoming Encounters Date Type Department Care Team (Latest Contact Info) Description 09/14/2024 11:00 AM CDT Appointment Department of Radiology, [facility], in [place], [place] [address] [place] [address] Noreen Ansari P.A.-C., M.S. [address] [place] [address] Jesus Figueroa M.D. [address] [place] [phone] 09/14/2024 4:00 PM CDT Telemedicine Division of Pulmonary Medicine in [place], [place] [address] [place] [address] Ben Dickson APRN, C.N.P. [address] [place] [phone] 09/15/2024 8:00 AM CDT Lab Department of Laboratory Medicine and Pathology, [facility] in [place], [place] [address] [place], [place] [phone] Edgar Montgomery M.B.B.S., M.S. [address] [place] [phone] 09/15/2024 10:00 AM CDT Comprehensive Visit [facility] in [place], [place] [address] [place] [phone] Edgar Montgomery M.B.B.S., M.S. [address] [place] [phone] Miriam Strickland M.D. [address] [place] [phone] 09/15/2024 11:00 AM CDT Office Visit [facility] in [place], [place] [address] [place] [phone] Edgar Montgomery M.B.B.S., M.S. [address] [place] [phone] Discharge Disposition: Home or Self Care 09/15/2024 1:45 PM CDT Infusion Department of Infusion Therapy in [place], [place] [address] [place] [address] Juan Pete M.D. [address] [place] [phone] 09/18/2024 2:15 PM CDT Hospital Encounter Department of Radiology, [facility] in [place], [place] [address] [place] [phone] Edgar Montgomery M.B.B.S., M.S. [address] [place] [phone] 09/20/2024 3:00 PM CDT Comprehensive Visit [facility] in [place], [place] [address] [place] [phone] Catia Quintana APRN, C.N.P. [address] [place] [phone] 10/03/2024 9:00 AM CDT Appointment Department of Radiology, [facility] in [place], [place] [address] [place] [address] Marisabel Carpenter APRN, C.N.P., D.N.P. [address] [place] [phone] 10/05/2024 12:00 PM CDT Appointment Division of Pulmonary Medicine in [place], [place] [address] [place] [phone] Edgar Montgomery M.B.B.S., M.S. [address] [place] [phone] 10/10/2024 7:50 AM CDT Lab Department of Laboratory Medicine and Pathology, [facility] in [place], [place] [address] [place] [address] Marisabel Carpenter APRN, C.N.PSuma, D.N.P. [address] [place] [phone] 10/10/2024 8:00 AM CDT Lab Department of Laboratory Medicine and Pathology, [facility] in [place], [place] [address] [place] [address] Marisabel Carpenter APRN, C.N.PSuma, D.N.P. [address] [place] [phone] 10/10/2024 8:30 AM CDT Nurse Only [facility] in [place], [place] [address] [place] [address] Marisabel Carpenter APRN, C.N.PSuma, D.N.P. [address] [place] [phone] 10/10/2024 9:20 AM CDT Appointment Department of Radiology, [facility] in [place], [place] [address] [place] [address] Marisabel Carpenter APRN, C.N.P., D.N.P. [address] [place] [phone] 10/10/2024 9:45 AM CDT Appointment Department of Laboratory Medicine and Pathology, [facility] in [place], [place] [address] [place] [address] Marisabel Carpenter APRN, Katrin.N.PSuma, D.N.P. [address] [place] [phone] 10/10/2024 1:30 PM CDT Appointment Department of Radiology, [facility], in [place], [place] [address] [place] [address] Marisabel Carpenter APRN C.N.PSuma, D.N.P. [address] [place] [phone] 10/10/2024 2:45 PM CDT Appointment Department of Radiology, [facility], in [place], [place] [address] [place] [address] Marisabel Carpenter APRN, C.N.PSuma, D.N.P. [address] [place] [phone] 10/11/2024 8:00 AM CDT Office Visit [facility] in [place], [place] [address] [place] [address] Marisabel Carpenter APRN, C.N.P., D.N.P. [address] [place] [phone] 10/11/2024 11:00 AM CDT Comprehensive Visit [facility] in [place], [place] [address] [place] [phone] Sree Devlin M.D. [address] [place] [phone] 10/11/2024 1:00 PM CDT Comprehensive Visit Department of Otorhinolaryngology in [place], [place] [address] [place] [phone] Randal Urbano P.A.-C., M.S. [address] [place] [phone] 10/11/2024 2:00 PM CDT Office Visit [facility] in [place], [place] [address] [place] [phone] Hiro Murillo P.A.-C. [address] [place] [phone] 10/11/2024 4:00 PM CDT Comprehensive Visit Department of Dermatology in [place], [place] [address] [place] [phone] Parul Martinez M.D. [address] [place] [phone] 10/12/2024 8:[address] [facility] in [place], [place] [address] [place] [phone] Ervin Mckeon D.O. [address] [place] [phone] 11/01/2024 2:15 PM CDT Appointment Division of Pulmonary Medicine in [place], [place] [address] [place] [phone] Edgar Montgomery M.B.B.S., M.S. [address] [place] [phone] documented as of this encounter Visit Diagnoses Not on filedocumented in this encounter Additional Health Concerns Infection Onset Date Last Indicated Resolved Time Protective Environment 10/10/2022 10/10/2022 Assessment Noted Time PHQ-9 Depression Total Score: 4 08/12/19 25 3:31 PM CDT documented as of this encounter Care Teams Communications Associate Relationship Specialty Start Date End Date Ana Red MPAS, P.A.-C. [address] [place] [address] [place] [phone] PCP - General Internal Medicine 12/01/21 [facility] [place] [facility] 08/25/21 documented as of this encounter
--- OUTSIDE RECORDS SUMMARY | 2024-09-14 01:32 | XMS_ITS | Encounter Summary ---
Author Organization [facility] Address [address] [place] [address] Care Team Providers Care Acds Block 1 Operator Name Role Phone Ana Red P.A.-C. Primary Care Pro vider Reason for Referral * Outpatient (Routine) - Authorized Specialty Diagnoses / Procedures Referred By Meir lara Referred To Contact Diagnoses Transplant Liver (HCC) Rejection Liver Transplant (HCC) Procedures US Liver Transplant Biopsy US Liver Biopsy SD BX NDL LIVER PERC SD US GUIDE PLC NDL Edgar Montgomery M.B.B.S., M.S. [address] [place] [phone] Phone: tel: fax: [facility] Referral ID Status Reason Start Date Expiration Date V isits Requested Visits Authorized [id number] Authorized 09/07/2024 12/08/2025 1 1 * Transplant (Routine) - Authorized Specialty Diagnoses / Procedures Referred By Meir lara Referred To Contact Transplant Diagnoses Transplant Liver (HCC) Rejection Liver Transplant (HCC) Edgar Montgomery M.B.B.S., M.S. [address] [place] [phone] Phone: tel: fax: [facility] Referral ID Status Reason Start Date Expiration Date V isits Requested Visits Authorized [id number] Authorized 09/07/2024 03/09/2026 1 1 Encounter Details Date Type Department Care Team (Late st Contact Info) Description 09/07/2024 Orders Only Ramirez diaz [facility] in [place], [place] [address] [place] [address] Criselda Samayoa R.N., CCTN Transplant Liver (HCC) (Primary Dx); Rejection Liver Transplant (HCC) Social History Tobacco Use Types Packs/Day Years Used Date Smoking Tobacco: Former Cigarettes 1 - 10/12/2021 Passive Smoke Exposure: Never Smokeless Tobacco: Never Comments:Smoked cigarettes f rom age 18-30 about Alcohol Use Standard Drinks/Week Comments Never 0 (1 standard drink = 0.6 oz pure alcohol) Havent had any alcohol in about a year or so. [facility] Utilities Answer Date Recorded In the past 12 months has [employer], gas, oil, or water [employer] threatened to shut off services in your [...] often do you attend chur ch or advent services? Patient declined 02/10/2022 Do you belong to any clubs o r organizations such as sikh groups, unions, fraternal [...] Answer Date Recorded PHQ-2 Score 0 08/11/2024 [facility] - Occupational Stress Questionnaire Answer Date [...] [facility] 09/09/2024 Education Answer Date Recorded What is the highest level of school you have completed or the highest degree you have received? Associate degree: occupational, technical, or vocational program 07/16/2021 Comments No Sex and Gender Information Value Date Recorded Sex Assigned at Female 04/12/2021 7:39 PM GLASS INSPECTOR Legal Sex Female 7:53 PM GLASS INSPECTOR Gender Identity Female 04/12/2021 7:39 PM GLASS INSPECTOR Sexual Orientation Straight 04/12/2021 7: 39 PM GLASS INSPECTOR documented as of this encounter Miscellaneous Notes * Addendum Note - Criselda Samayoa R.N., [place] - 09/07/2024 10:39 AM CDT Addended by: CRISELDA SAMAYOA on: 09/08/2024 10:10 AM Modules accepted: Orders * Addendum Note - Criselda Samayoa R.N., [place] - 09/07/2024 10:39 AM CDT Addended by: CRISELDA SAMAYOA on: 09/08/2024 10:11 AM Modules accepted: Orders documented in this encounter Plan of Treatment Upcoming Encounters Date Type Department Care Team (Latest Contact Info) Description 09/14/2024 11:00 AM CDT Appointment Department of Radiology, [place], in [place], [place] [address] [place] [phone] Noreen Ansari P.A.-C., M.S. [address] [place], [place] [phone] Jesus Figueroa M.D. [address] [place] [phone] 09/14/2024 4:00 PM CDT Telemedicine Division of Pulmonary Medicine in [place], [place] [address] [place], [place] [phone] Ben Dickson APRN, C.N.P. [address] [place], [place] [phone] 09/15/2024 8:00 AM CDT Lab Department of Laboratory Medicine and Pathology, [facility] in [place], [place] [address] [place] [phone] Edgar Montgomery M.B.B.S., M.S. [address] [place], [place] [phone] 09/15/2024 10:00 AM CDT [facility] in [place], [place] [address] [place] [phone] Edgar Montgomery M.B.B.S., M.S. [address] [place] [phone] Miriam Strickland M.D. [address] [place] [phone] 09/15/2024 11:00 AM CDT [facility] in [place], [place] [address] [place] [phone] Edgar Montgomery M.B.B.S., M.S. [address] [place] [phone] Discharge Disposition: Home or Self Care 09/15/2024 1:45 PM CDT Infusion Department of Infusion Therapy in [place], [place] [address] [place] [phone] Juan Pete M.D. [address] [place] [phone] 09/18/2024 2:15 PM CDT Hospital Encounter Department of Radiology, [facility] in [place], [place] [address] [place] [phone] Edgar Montgomery M.B.B.S., M.S. [address] [place] [phone] 09/20/2024 3:00 PM CDT Comprehensive Visit [facility] in [place], [place] [address] [place] [phone] Catia Quintana APRN, C.N.P. [address] [place] [phone] 10/03/2024 9:00 AM CDT Appointment Department of Radiology, [facility] in [place], [place] [address] [place] [address] Marisabel Carpenter APRN, C.N.P., D.N.P. [address] [place] [phone] 10/05/2024 12:00 PM CDT Appointment Division of Pulmonary Medicine in [place], [place] [address] [place] [phone] Edgar Montgomery M.B.B.S., M.S. [address] [place] [address] 10/10/2024 7:50 AM CDT Lab Department of Laboratory Medicine and Pathology, [facility] in [place], [place] [address] [place] [address] Marisabel Carpenter APRN, C.N.P., D.N.P. [address] [place] [phone] 10/10/2024 8:00 AM CDT Lab Department of Laboratory Medicine and Pathology, [place], [place] [address] [place] [address] Marisabel Carpenter APRN, C.N.PSuma, D.N.P. [address] [place] [phone] 10/10/2024 8:30 AM CDT Nurse Only [facility] in [place], [place] [address] [place] [address] Marisabel Carpenter APRN, C.N.PSuma, D.N.P. [address] [place] [phone] 10/10/2024 9:20 AM CDT Appointment Department of Radiology, [facility] in [place], [place] [address] [place] [address] Marisabel Carpenter APRN, C.N.P., D.N.P. [address] [place] [phone] 10/10/2024 9:45 AM CDT Appointment Department of Laboratory Medicine and Pathology, [facility] in [place], [place] [address] [place] [address] Marisabel Carpenter APRN, Katrin.N.PSuma, D.N.P. [address] [place] [phone] 10/10/2024 1:30 PM CDT Appointment Department of Radiology, [facility], in [place], [place] [address] [place] [address] Marisabel Carpenter APRN, C.N.PSuma, D.N.P. [address] [place] [phone] 10/10/2024 2:45 PM CDT Appointment Department of Radiology, [facility], in [place], [place] [address] [place] [address] Marisabel Carpenter APRN, Katrin.N.PSuma, D.N.P. [address] [place] [phone] 10/11/2024 8:00 AM CDT [facility] in [place], [place] [address] [place] [address] Marisabel Carpenter APRN, Katrin.N.PSuma, D.N.P. [address] [place] [phone] 10/11/2024 11:00 AM CDT Comprehensive Visit [facility] in [place], [place] [address] [place] [address] Sree Devlin M.D. [address] [place] [phone] 10/11/2024 1:00 PM CDT Comprehensive Visit Department of Otorhinolaryngology in [place], [place] [address] [place] [phone] Randal Urbano P.A.-C., M.S. [address] [place] [phone] 10/11/2024 2:00 PM CDT Office Visit [facility] in [place], [place] [address] [place] [phone] Hiro Murillo P.A.-C. [address] [place] [phone] 10/11/2024 4:00 PM CDT Comprehensive Visit Department of Dermatology in [place], [place] [address] [place] [phone] Parul Martinez M.D. [address] [place] [phone] 10/12/2024 8:00 AM CDT Telemedicine [facility] in [place], [place] [address] [place] [phone] Ervin Mckeon D.O. [address] [place] [phone] 11/01/2024 2:15 PM CDT Appointment Division of Pulmonary Medicine in [address] [phone] Edgar Montgomery M.B.B.S., M.S. [address] [place] [phone] Scheduled Orders Name Type Priority Associated Diagnoses Order Schedule CBC with Differential, Blood Lab Routine Transplant Liver (HCC) Rejection Liver Transplant (HCC) Expected: 09/14/2024, Expires: 09/07/2025 Comprehensive Metabolic Panel Lab Routine Transplant Liver (HCC) Rejection Liver Transplant (HCC) Expected: 09/14/2024, Expires: 12/08/2025 Prothrombin Time (PT) Lab Routine Transplant Liver (HCC) Rejection Liver Transplant (HCC) Expected: 09/14/2024, Expires: 12/08/2025 Liver Transplant Biopsy Imaging RAD - Routine (most inpatients and all outpatients) Transplant Liver (HCC) Rejection Liver Transplant (HCC) Expected: 09/14/2024, Expires: 12/08/2025 CMV DNA Detect / Quant, Plasma Microbiology Routine Transplant Liver (HCC) Rejection Liver Transplant (HCC) Expected: 09/15/2024, Expires: 09/08/2025 Tacrolimus, Trough Lab Routine Transplant Liver (HCC) Rejection Liver Transplant (HCC) Expected: 09/15/2024, Expires: 09/08/2025 Scheduled Referrals Name Type Priority Associated Diagnoses Order Schedule Transplant - Liver transplant consult (clinic) Outpatient Referral Routine Transplant Liver (HCC) Rejection Liver Transplant (HCC) 1 Occurrences starting 09/07/2024 until 12/08/2025 documented as of this encounter Visit Diagnoses Diagnosis Transplant Liver (HCC)- Primary Rejection Liver Transplant (HCC) documented in this encounter Additional Health Concerns Infection Onset Date Last Indicated Resolved Time Protective Environment 10/10/2022 10/10/2022 Assessment Noted Time PHQ-9 Depression Total Score: 4 08/12/19 25 3:31 PM CDT documented as of this encounter Care Teams Acds Block 1 Operator Relationship Specialty Start Date End Date Ana Red MPAS, P.A.-C. [address] [place] [address] PCP - General Internal Medicine 12/01/21 [facility] [place] [facility] 08/25/21 documented as of this encounter
--- OUTSIDE RECORDS SUMMARY | 2024-09-14 01:32 | XMS_ITS | Encounter Summary ---
Author Organization [facility] Address [address] [place] [address] Care Team Providers Care Medical Transcription Name Role Phone Ana Red P.A.-C. Primary Care Pro vider Encounter Details Date Type Department Care Team (Late st Contact Info) Description 09/07/2024 Orders Only Division of Endocrinology in [place], [place] [address] [place] [phone] Catia Quintana, YARITZA, C.N.P. [address] [place] [phone] Social History Tobacco Use Types Packs/Day Years [...] Recorded In the past 12 months has [employer], gas, oil, or water [employer] threatened to shut off services in your [...] How often do you attend chur or rastafari services? Patient declined 02/10/2022 Do [...] Answer Date Recorded PHQ-2 Score 0 08/11/2024 [facility] of Occupat ional Health - Occupational Stress [...] your living situation today? I have a [facility] place to live 09/09/2024 Education Answer Date Recorded What is the highest level of school you have completed or the highest degree you have received? Associate degree: occupational, technical, or vocational program 07/16/2021 Comments No Sex and Gender Information Value Date Recorded Sex Assigned at Female 04/12/2021 7:39 PM SENIOR ENERGY ANALYST Legal Sex Female 7:53 PM SENIOR ENERGY ANALYST Gender Identity Female 04/12/2021 7:39 PM SENIOR ENERGY ANALYST Sexual Orientation Straight 04/12/2021 7: 39 PM SENIOR ENERGY ANALYST documented as of this encounter Plan of Treatment Upcoming Encounters Date Type Department Care Team (Latest Contact Info) Description 09/14/2024 11:00 AM CDT Appointment Department of Radiology, [facility], in [place], [place] [address] [place] [address] Noreen Ansari P.A.-C., M.S. [address] [place] [phone] Jesus Figueroa M.D. [address] [place] [phone] 09/14/2024 4:00 PM CDT Telemedicine Division of Pulmonary Medicine in [place], [place] [address] [place] [address] Ben Dickson, YARITZA, C.N.P. [address] [place] [phone] 09/15/2024 8:00 AM CDT Lab Department of Laboratory Medicine and Pathology, [facility] in [place], [place] [address] [place] [address] Edgar Montgomery M.B.B.S., M.S. [address] [place] [phone] 09/15/2024 10:00 AM CDT [facility] in [place], [place] [address] [place] [address] Edgar Montgomery M.B.B.S., M.S. [address] [place] [phone] Miriam Strickland M.D. [address] [place] [phone] 09/15/2024 11:00 AM CDT Office [facility] in [place], [place] [address] [place] [address] Edgar Montgomery M.B.B.S., M.S. [address] [place] [phone] Discharge Disposition: Home or Self Care 09/15/2024 1:45 PM CDT Infusion Department of Infusion Therapy in [place], [place] [address] [place] [address] Juan Pete M.D. [address] [place] [phone] 09/18/2024 2:15 PM CDT Hospital Encounter Department of Radiology, [facility] in [place], [place] [address] [place] [address] Edgar Montgomery M.B.B.S., M.S. [address] [place] [phone] 09/20/2024 3:00 PM CDT Comprehensive Visit [facility] in [place], [place] [address] [place] [address] Catia Quintana APRN, C.N.P. [address] [place] [phone] 10/03/2024 9:00 AM CDT Appointment Department of Radiology, [facility] in [place], [place] [address] [place] [address] Marisabel Carpenter APRN, C.N.P., D.N.P. [address] [place] [phone] 10/05/2024 12:00 PM CDT Appointment Division of Pulmonary Medicine in [place], [place] [address] [place] [address] Edgar Montgomery M.B.B.S., M.S. [address] [place] [phone] 10/10/2024 7:50 AM CDT Lab Department of Laboratory Medicine and Pathology, [facility] in [place], [place] [address] [place] [address] Marisabel Carpenter APRN, C.N.P., D.N.P. [address] [place] [phone] 10/10/2024 8:00 AM CDT Lab Department of Laboratory Medicine and Pathology, [facility] in [place], [place] [address] [place] [address] Marisabel Carpenter APRN, C.N.P., D.N.P. [address] [place] [phone] 10/10/2024 8:30 AM CDT Nurse Only [facility] in [place], [place] [address] [place] [address] Marisabel Carpenter APRN, C.N.P., D.N.P. [address] [place] [phone] 10/10/2024 9:20 AM CDT Appointment Department of Radiology, [facility] in [place], [place] [address] [place] [address] Marisabel Carpenter APRN, C.N.P., D.N.P. [address] [place] [phone] 10/10/2024 9:45 AM CDT Appointment Department of Laboratory Medicine and Pathology, [facility] in [place], [place] [address] [place] [address] Marisabel Carpenter APRN, C.N.P., D.N.P. [address] [place] [phone] 10/10/2024 1:30 PM CDT Appointment Department of Radiology, [facility] in [place], [place] [address] [place] [address] Marisabel Carpenter APRN, C.N.P., D.N.P. [address] [place] [phone] 10/10/2024 2:45 PM CDT Appointment Department of Radiology, [facility], in [place], [place] [address] [place] [address] Marisabel Carpenter APRN C.N.PSuma, D.N.P. [address] [place] [phone] 10/11/2024 8:00 AM CDT Office Visit [facility] for Transplantation and Clinical Regeneration in [place], [place] [address] [place] [address] Marisabel Carpenter APRN, C.N.P., D.N.P. [address] [place] [phone] 10/11/2024 11:00 AM CDT Comprehensive Visit [facility] for Transplantation and Clinical Regeneration in [place], [place] [address] [place] [address] Sree Devlin M.D. [address] [place] [phone] 10/11/2024 1:00 PM CDT Comprehensive Visit Department of Otorhinolaryngology in [place], [place] [address] [place] [address] Randal Urbano, P.A.-C., M.S. [address] [place] [phone] 10/11/2024 2:00 PM CDT Office Visit [facility] Transplantation and Clinical Regeneration in [place], [place] [address] [place] [phone] Hiro Murillo P.A.-C. [address] [place] [phone] 10/11/2024 4:00 PM CDT Comprehensive Visit Department of Dermatology in [place], [place] [address] [place] [phone] Parul Martinez M.D. [address] [place] [phone] 10/12/2024 8:00 AM CDT Telemedicine [facility] Transplantation and Clinical Regeneration in [place], [place] [address] [place] [phone] Ervin Mckeno D.O. [address] [place] [phone] 11/01/2024 2:15 PM CDT Appointment Division of Pulmonary Medicine in [place], [place] [address] [place] [phone] Edagr Montgomery M.B.B.S., M.S. [address] [place] [phone] documented as of this encounter Visit Diagnoses Not on filedocumented in this encounter Additional Health Concerns Infection Onset Date Last Indicated Resolved Time Protective Environment 10/10/2022 10/10/2022 Assessment Noted Time PHQ-9 Depression Total Score: 4 08/12/19 25 3:31 PM CDT documented as of this encounter Care Teams Medical Transcription Relationship Specialty Start Date End Date Ana Red MPAS, P.Ana-C. [address] [phone] PCP - General Internal Medicine 12/01/21 [facility] [place] [facility] 08/25/21 documented as of this encounter
--- OUTSIDE RECORDS SUMMARY | 2024-09-14 01:32 | XMS_ITS | Encounter Summary ---
Author Organization [facility] Address [address] [place] [address] Care Team Providers Care Mixer Operator Raw Salt Name Role Phone Ana Red P.A.-C. Primary [...] alcohol in about a year or so. [facility] Utilities Answer Date Recorded In the past 12 months has [employer] gas, oil, or water [employer] threatened to shut off services in your [...] How often do you attend chur or roman catholic services? Patient declined 02/10/2022 Do you belong to any clubs o r organizations such as voodoo groups, unions, fraternal [...] Answer Date Recorded PHQ-2 Score 0 08/11/2024 [facility] of Occupat ional Health - Occupational [...] situation today? I have a [facility] place to live 08/22/2024 Education Answer Date Recorded What is the highest level of school you have completed or the highest degree you have received? Associate degree: occupational, technical, or vocational program 07/16/2021 Comments No Sex and Gender Information Value Date Recorded Sex Assigned at Female 04/12/2021 7:39 PM SENIOR COMMISSIONS ANALYST Legal Sex Female 7:53 PM SENIOR COMMISSIONS ANALYST Gender Identity Female 04/12/2021 7:39 PM SENIOR COMMISSIONS ANALYST Sexual Orientation Straight 04/12/2021 7: 39 PM SENIOR COMMISSIONS ANALYST documented as of this encounter Plan of Treatment Upcoming Encounters Date Type Department Care Team (Latest Contact Info) Description 09/14/2024 11:00 AM CDT Appointment Department of Radiology, [facility], in [place], [place] 200 [place] [phone] Noreen Ansari, Christo.-C., M.S. 200 [place] [phone] Jesus Figueroa M.D. 200 [place] [phone] 09/14/2024 4:00 PM CDT Telemedicine Division of Pulmonary Medicine in [place], [place] [address] [place] [phone] Ben Dickson APRN CSumaNSumaP. [address] [place] [phone] 09/15/2024 8:00 AM CDT Lab Department of Laboratory Medicine and Pathology, [facility] in [place], [place] [address] [place] [phone] Edgar Montgomery M.B.B.S., M.S. [address] [place] [phone] 09/15/2024 10:00 AM CDT Comprehensive Visit [facility] in [place], [place] [address] [place] [phone] Edgar Montgomery M.B.B.S., M.S. [address] [place] [phone] Miriam Strickland M.D. [address] [place] [phone] 09/15/2024 11:00 AM CDT Office Visit [facility] in [place], [place] [address] [place] [phone] Edgar Montgomery M.B.B.S., M.S. [address] [place] [phone] Discharge Disposition: Home or Self Care 09/15/2024 1:45 PM CDT Infusion Department of Infusion Therapy in [place], [place] [address] [place] [address] Juan Pete M.D. [address] [place] [address] 09/18/2024 2:15 PM CDT Hospital Encounter Department of Radiology, [facility], in [place], [place] [address] [place] [address] Edgar Montgomery M.B.B.S., M.S. [address] [place] [address] 09/20/2024 3:00 PM CDT Comprehensive Visit [facility] in [place], [place] [address] [place] [address] Catia Quintana APRN, C.N.P. [address] [place] [phone] 10/03/2024 9:00 AM CDT Appointment Department of Radiology, [facility], in [place], [place] [address] [place] [address] Marisabel Carpenter APRN, C.N.P., D.N.P. [address] [place] [phone] 10/05/2024 12:00 PM CDT Appointment Division of Pulmonary Medicine in [place], [place] [address] [place] [address] Edgar Montgomery M.B.B.S., M.S. [address] [place] [phone] 10/10/2024 7:50 AM CDT Lab Department of Laboratory Medicine and Pathology, [facility], in [place], [place] [address] [place] [address] Marisabel Carpenter APRN, C.N.P., D.N.P. [address] [place] [address] 10/10/2024 8:00 AM CDT Lab Department of Laboratory Medicine and Pathology, [place], [place] [address] [place] [address] Marisabel Carpenter APRN, C.N.P., D.N.P. [address] [place] [phone] 10/10/2024 8:30 AM CDT Nurse Only [facility] in [place], [place] [address] [place] [address] Marisabel Carpenter APRN, C.N.PSuma, D.N.P. [address] [place] [phone] 10/10/2024 9:20 AM CDT Appointment Department of Radiology, [facility] in [place], [place] [address] [place] [address] Marisabel Carpenter APRN, C.N.PSuma, D.N.P. [address] [place] [phone] 10/10/2024 9:45 AM CDT Appointment [facility] [place] [address] [place] [address] Marisabel Carpenter APRN, C.N.P., D.N.P. [address] [place] [phone] 10/10/2024 1:30 PM CDT Appointment Department of Radiology, [facility], in [place], [place] [address] [place] [address] Marisabel Carpenter APRN C.N.PSuma, D.N.P. [address] [place] [phone] 10/10/2024 2:45 PM CDT Appointment Department of Radiology, [facility], in [place], [place] [address] [place] [address] Marisabel Carpenter APRN C.N.PSuma, D.N.P. [address] [place] [phone] 10/11/2024 8:00 AM CDT Office Visit [facility] for Transplantation and Clinical Regeneration in [place], [place] [address] [place] [address] Marisabel Carpenter APRN, C.N.P., D.N.P. [address] [place] [phone] 10/11/2024 11:00 AM CDT Comprehensive Visit [facility] for Transplantation and Clinical Regeneration in [place], [place] [address] [place] [address] Sree Devlin M.D. [address] [place] [phone] 10/11/2024 1:00 PM CDT Comprehensive Visit Department of Otorhinolaryngology in [place], [place] [address] [place] [address] Randal Urbano, P.A.-C., M.S. [address] [place] [phone] 10/11/2024 2:00 PM CDT Office Visit [facility] for Transplantation and Clinical Regeneration in [place], [place] [address] [place] [address] Hiro Murillo P.A.-C. [address] [place] [phone] 10/11/2024 4:00 PM CDT Comprehensive Visit Department of Dermatology in [place], [place] [address] [place] [phone] Parul Martinez M.D. [address] [place] [phone] 10/12/2024 8:00 AM CDT Telemedicine [facility] for Transplantation and Clinical Regeneration in [place], [place] [address] [place] [phone] Ervin Mckeon D.O. [address] [place] [phone] 11/01/2024 2:15 PM CDT Appointment Division of Pulmonary Medicine in [place], [place] [address] [place] [phone] Edgar Montgomery M.B.B.S., M.S. [address] [place] [phone] documented as of this encounter Procedures Procedure [...] PROCE DURES Final Result Performing Organization Address [facility]/State/ZIP Co de Phone Number IIMS NA documented in this encounter Visit Diagnoses Not on filedocumented in this encounter Additional Health Concerns Infection Onset Date Last Indicated Resolved Time Protective Environment 10/10/2022 10/10/2022 Assessment Noted Time PHQ-9 Depression Total Score: 4 08/12/19 25 3:31 PM CDT documented as of this encounter Care Teams Mixer Operator Raw Salt Relationship Specialty Start Date End Date Ana Red MPAS, P.A.-C. [address] [place] [phone] PCP - General Internal Medicine 12/01/21 [facility] [place] [facility] 08/25/21 documented as of this encounter
--- OUTSIDE RECORDS SUMMARY | 2024-09-14 01:33 | XMS_ITS | Encounter Summary ---
Author Organization [facility] Address [address] [place] [id number] Care Team Providers Care Furnace Operator Name Role Phone Ana Red P.A.-C. Primary Care Pro vider Reason for Visit * Reason Onset Date Comments Med Refill 09/11/2024 Insurance Issues Encounter Details Date Type Department Care Team (Latest Contact Info) Description 09/11/2024 Clinical Communication Ramirez [facility] in [place], [place] [address] [phone] August, Sony Mendez R.N. [address] [place] [phone] Med Refill (Insurance Issues) Social History Tobacco Use Types Packs/Day Years Used Date Smoking Tobacco: Former Cigarettes 1 - 10/12/2021 Passive Smoke Exposure: Never Smokeless Tobacco: Never Comments:Smoked cigarettes f rom age 18-30 about Alcohol Use Standard Drinks/Week Comments Never 0 (1 standard drink = 0.6 oz pure alcohol) Havent had any alcohol in about a year or so. [facility] Utilities Answer Date Recorded In the [...] How often do you attend chur or denominational services? Patient declined 02/10/2022 Do you belong [...] Answer Date Recorded PHQ-2 Score 0 08/11/2024 [facility] of Occupat ional Health - Occupational Stress [...] your living situation today? I have a [facility] place to live 09/09/2024 Education Answer Date Recorded What is the highest level of school you have completed or the highest degree you have received? Associate degree: occupational, technical, or vocational program 07/16/2021 Comments No Sex and Gender Information Value Date Recorded Sex Assigned at Female 04/12/2021 7:39 PM RESIDENTIAL LIVING ASSISTANT Legal Sex Female 7:53 PM RESIDENTIAL LIVING ASSISTANT Gender Identity Female 04/12/2021 7:39 PM RESIDENTIAL LIVING ASSISTANT Sexual Orientation Straight 04/12/2021 7: 39 PM RESIDENTIAL LIVING ASSISTANT documented as of this encounter Plan of Treatment Upcoming Encounters Date Type Department Care Team (Latest Contact Info) Description 09/14/2024 11:00 AM CDT Appointment Department of Radiology, [facility], in [place], [place] [address] [place] [address] Noreen Ansari P.A.-C., M.S. [address] [place] [address] Jesus Figueroa M.D. [address] [place] [phone] 09/14/2024 4:00 PM CDT Telemedicine Division of Pulmonary Medicine in [place], [place] [address] [place] [address] Ben Dickson APRN, C.N.P. [address] [place] [phone] 09/15/2024 8:00 AM CDT Lab Department of Laboratory Medicine and Pathology, [facility], in [place], [place] [address] [place] [address] Edgar Montgomery M.B.B.S., M.S. [address] [place] [phone] 09/15/2024 10:00 AM CDT Comprehensive [facility] in [place], [place] [address] [place] [address] Edgar Montgomery M.B.B.S., M.S. [address] [place] [phone] Miriam Strickland M.D. [address] [place] [phone] 09/15/2024 11:00 AM CDT Office Visit Ramirez Navar[facility] in [place], [place] [address] [place] [address] Edgar Montgomery M.B.B.S., M.S. [address] [place] [phone] Discharge Disposition: Home or Self Care 09/15/2024 1:45 PM CDT Infusion Department of Infusion Therapy in [place], [place] [address] [place] [address] Juan Pete M.D. [address] [place] [phone] 09/18/2024 2:15 PM CDT Hospital Encounter Department of Radiology, [facility] in [place], [place] [address] [place] [address] Edgar Montgomery M.B.B.S., M.S. [address] [place] [phone] 09/20/2024 3:00 PM CDT Comprehensive Visit [facility] in [place], [place] [address] [place] [phone] Catia Quintana APRN, C.N.P. [address] [place] [phone] 10/03/2024 9:00 AM CDT Appointment Department of Radiology, [facility], in [place], [place] [address] [place] [address] Marisabel Carpenter APRN, C.N.P., D.N.P. [address] [place] [phone] 10/05/2024 12:00 PM CDT Appointment Division of Pulmonary Medicine in [place], [place] [address] [place] [address] Edgar Montgomery M.B.B.S., M.S. [address] [place] [phone] 10/10/2024 7:50 AM CDT Lab Department of Laboratory Medicine and Pathology, [facility] in [place], [place] [address] [place] [address] Marisabel Carpenter APRN, C.N.P., D.N.P. [address] [place] [phone] 10/10/2024 8:00 AM CDT Lab Department of Laboratory Medicine and Pathology, [facility] in [place], [place] [address] [place] [address] Marisabel Carpenter APRN, C.N.P., D.N.P. [address] [place] [phone] 10/10/2024 8:30 AM CDT Nurse Only Ramirez diaz [facility] for Transplantation [facility] Clinical Regeneration in [place], [place] [address] [place] [address] Marisabel Carpenter APRN, C.N.P., D.N.P. [address] [place] [phone] 10/10/2024 9:20 AM CDT Appointment Department of Radiology, [facility] in [place], [place] [address] [place] [address] Marisabel Carpenter APRN, C.N.P., D.N.P. [address] [place] [phone] 10/10/2024 9:45 AM CDT Appointment Department of Laboratory Medicine and Pathology, [facility] in [place], [place] [address] [place] [address] Marisabel Carpenter APRN, C.N.P., D.N.P. [address] [place] [address] 10/10/2024 1:30 PM CDT Appointment Department of Radiology, [facility] in [place], [place] [address] [place] [address] Marisabel Carpenter APRN, C.N.PSuma, D.N.P. [address] [place] [phone] 10/10/2024 2:45 PM CDT Appointment Department of Radiology, [facility] in [place], [place] [address] [place] [address] Marisabel Carpenter APRN, C.N.PSuma, D.N.P. [address] [place] [phone] 10/11/2024 8:00 AM CDT Office Visit [facility] for Transplantation and Clinical Regeneration in [place], [place] [address] [place] [address] Marisabel Carpenter APRN, C.N.P., D.N.P. [address] [place] [phone] 10/11/2024 11:00 AM CDT Comprehensive Visit [facility] for Transplantation and Clinical Regeneration in [place], [place] [address] [place] [address] Sree Devlin M.D. [address] [place] [phone] 10/11/2024 1:00 PM CDT Comprehensive Visit Department of Otorhinolaryngology in [place], [place] [address] [place] [address] Randal Urbano P.A.-C., M.S. [address] [place] [phone] 10/11/2024 2:00 PM CDT Office Visit [facility] Transplantation and Clinical Regeneration in [place], [place] [address] [place] [phone] Hrio Murillo P.A.-C. [address] [place] [phone] 10/11/2024 4:00 PM CDT Comprehensive Visit Department of Dermatology in [place], [place] [address] [place] [phone] Parul Martinez M.D. [address] [place] [phone] 10/12/2024 8:00 AM CDT Telemedicine [facility] Transplantation and Clinical Regeneration in [place], [place] [address] [place] [phone] Ervin Mckeon D.O. [address] [place] [phone] 11/01/2024 2:15 PM CDT Appointment Division of Pulmonary Medicine in [place], [place] [address] [place] [phone] Edgar Montgomery M.B.B.S., M.S. [address] [place] [phone] documented as of this encounter Visit Diagnoses Not on filedocumented in this encounter Additional Health Concerns Infection Onset Date Last Indicated Resolved Time Protective Environment 10/10/2022 10/10/2022 Assessment Noted Time PHQ-9 Depression Total Score: 4 08/12/19 25 3:31 PM CDT documented as of this encounter Care Teams Furnace Operator Relationship Specialty Start Date End Date Ana Red MPAS, PToo. 300 [facility] [place] [phone] PCP - General Internal Medicine 12/01/21 [facility] [place] [facility] 08/25/21 documented as of this encounter
--- OUTSIDE RECORDS SUMMARY | 2024-09-14 01:33 | XMS_ITS | Encounter Summary ---
Author Organization [facility] Address [address] [place] [address] Care Team Providers Care Tribunal Member Name Role Phone Ana Red P.A.-C. Primary Care Pro vider Encounter Details Date Type Department Care Team (Late st Contact Info) Description 09/11/2024 3:05 PM CDT Ancillary Procedure Department of Nursing Arrived Social History Tobacco Use Types Packs/Day Years Used Date Smoking Tobacco: Former Cigarettes 1 - 10/12/2021 Passive Smoke Exposure: Never Smokeless Tobacco: Never Comments:Smoked cigarettes f rom age 18-30 about Alcohol Use Standard Drinks/Week Comments Never 0 (1 standard drink = 0.6 oz pure alcohol) Havent had any alcohol in about a year or so. [facility] Utilities Answer Date Recorded In the past 12 months has [place], gas, oil, or water [employer] threatened to shut off services in your [...] Answer Date Recorded PHQ-2 Score 0 08/11/2024 [facility] of Occupat [...] your living situation today? I have a [facility] place to live 09/09/2024 Education Answer Date Recorded What is the highest level of school you have completed or the highest degree you have received? Associate degree: occupational, technical, or vocational program 07/16/2021 Comments No Sex and Gender Information Value Date Recorded Sex Assigned at Female 04/12/2021 7:39 PM ARCHITECTURE ANALYST Legal Sex Female 7:53 PM ARCHITECTURE ANALYST Gender Identity Female 04/12/2021 7:39 PM ARCHITECTURE ANALYST Sexual Orientation Straight 04/12/2021 7: 39 PM ARCHITECTURE ANALYST documented as of this encounter Plan of Treatment Upcoming Encounters Date Type Department Care Team (Latest Contact Info) Description 09/14/2024 11:00 AM CDT Appointment Department of Radiology, [facility], in [place], [place] 200 [place] [phone] Noreen Ansari, Christo.-C., M.S. 200 [place] [phone] Jesus Figueroa M.D. 200 [place] [phone] 09/14/2024 4:00 PM CDT Telemedicine Division of Pulmonary Medicine in [place], [place] [address] [phone] Ben Dickson APRN, CSumaN.P. [address] [place] [phone] 09/15/2024 8:00 AM CDT Lab Department of Laboratory Medicine and Pathology, [facility] in [place], [place] [address] [place] [address] Edgar Montgomery M.Karan.B.S., M.S. [address] [place] [phone] 09/15/2024 10:00 AM CDT [facility] in [place], [place] [address] [place] [phone] Edgar Montgomery M.B.B.S., M.S. [address] [place] [phone] Miriam Strickland M.D. [address] [place] [phone] 09/15/2024 11:00 AM CDT Office Visit [facility] in [place], [place] [address] [place] [phone] Edgar Montgomery M.B.B.S., M.S. [address] [place] [phone] Discharge Disposition: Home or Self Care 09/15/2024 1:45 PM CDT Infusion Department of Infusion Therapy in [place], [place] [address] [place] [address] Juan Pete M.D. [address] [place] [address] 09/18/2024 2:15 PM CDT Hospital Encounter Department of Radiology, [facility], in [place], [place] [address] [place] [address] Edgar Montgomery M.B.B.S., M.S. [address] [place] [address] 09/20/2024 3:00 PM CDT Comprehensive Visit [facility] in [place], [place] [address] [place] [address] Catia Quintana APRN, C.N.P. [address] [place] [phone] 10/03/2024 9:00 AM CDT Appointment Department of Radiology, [facility], in [place], [place] [address] [place] [address] Mraisabel Carpenter APRN, C.N.P., D.N.P. [address] [place] [phone] 10/05/2024 12:00 PM CDT Appointment Division of Pulmonary Medicine in [place], [place] [address] [place] [address] Edgar Montgomery M.B.B.S., M.S. [address] [place] [phone] 10/10/2024 7:50 AM CDT Lab Department of Laboratory Medicine and Pathology, [facility], in [place], [place] [address] [place] [address] Marisabel Carpenter APRN, C.N.P., D.N.P. [address] [place] [address] 10/10/2024 8:00 AM CDT Lab Department of Laboratory Medicine and Pathology, [place], [place] [address] [place] [address] Marisabel Carpenter APRN, C.N.P., D.N.P. [address] [place] [phone] 10/10/2024 8:30 AM CDT Nurse Only [facility] in [place], [place] [address] [place] [phone] Marisabel Carpenter APRN, C.N.PSuma, D.N.P. [address] [place] [phone] 10/10/2024 9:20 AM CDT Appointment Department of Radiology, [facility] in [place], [place] [address] [place] [address] Marisabel Carpenter APRN, C.N.P., D.N.P. [address] [place] [phone] 10/10/2024 9:45 AM CDT Appointment [place] [address] [place] [address] Marisabel Carpenter APRN, C.N.P., D.N.P. [address] [place] [phone] 10/10/2024 1:30 PM CDT Appointment Department of Radiology, [facility] in [place], [place] [address] [place] [address] Marisabel Carpenter APRN C.N.PSuma, D.N.P. [address] [place] [phone] 10/10/2024 2:45 PM CDT Appointment Department of Radiology, [facility], in [place], [place] [address] [place] [address] Marisabel Carpenter APRN C.N.PSuma, D.N.P. [address] [place] [phone] 10/11/2024 8:00 AM CDT Office Visit [facility] in [place], [place] [address] [place] [address] Marisabel Carpenter APRN, C.N.P., D.N.P. [address] [place] [phone] 10/11/2024 11:00 AM CDT Comprehensive Visit [facility] in [place], [place] [address] [place] [address] Sree Devlin M.D. [address] [place] [phone] 10/11/2024 1:00 PM CDT Comprehensive Visit Department of Otorhinolaryngology in [place], [place] [address] [place] [address] Randal Urbano, P.A.-C., M.S. [address] [place] [phone] 10/11/2024 2:00 PM CDT Office Visit [facility] in [place], [place] [address] [place] [address] Hiro Murillo P.A.-C. [address] [place] [phone] 10/11/2024 4:00 PM CDT Comprehensive Visit Department of Dermatology in [place], [place] [address] [place] [phone] Parul Martinez M.D. [address] [place] [phone] 10/12/2024 8:00 AM CDT Telemedicine [facility] for [facility] Regeneration in [place], [place] [address] [place] [phone] Ervin Mckeon D.O. [address] [place] [phone] 11/01/2024 2:15 PM CDT Appointment Division of Pulmonary Medicine in [place], [place] [address] [place] [phone] Edgar Montgomery M.B.B.S., M.S. [address] [place] [phone] documented as of this encounter Procedures Procedure [...] documented as of this encounter Care Teams Tribunal Member Relationship Specialty Start Date End Date Ana Red MPAS, P.A.-C. [address] [place] [address] [place] [address] PCP - General Internal Medicine 12/01/21 [facility] [place] [facility] 08/25/21 documented as of this encounter
--- OUTSIDE RECORDS SUMMARY | 2024-09-14 01:33 | XMS_ITS | Encounter Summary ---
Author Organization [facility] Address [address] [place] [id number] Care Team Providers Care Shingle Catcher Name Role Phone Ana Red P.A.-C. Primary Care Pro vider Encounter Details Date Type Department Care Team (Latest Contact Info) Description 09/13/2024 Clinical Communication Ramirez Navarrete [facility] in [place], [place] [address] [place] [phone] AugustSony R.N. [address] [place] [phone] Social History Tobacco Use Types Packs/Day Years Used Date Smoking Tobacco: Former Cigarettes 1 - 10/12/2021 Passive Smoke Exposure: Never Smokeless Tobacco: Never Comments:Smoked cigarettes f rom age 18-30 about Alcohol Use Standard Drinks/Week Comments Never 0 (1 standard drink = 0.6 oz pure alcohol) Havent had any alcohol in about a year or so. [facility] Utilities Answer Date Recorded In the [...] week 02/10/2022 How often do you attend [facility] or j[facility] services? Patient declined 02/10/2022 Do you belong to any clubs o r organizations such as congregation groups, unions, fraternal [...] [facility] live 09/09/2024 Education Answer Date Recorded What is the highest level of school you have completed or the highest degree you have received? Associate degree: occupational, technical, or vocational program 07/16/2021 Comments No Sex and Gender Information Value Date Recorded Sex Assigned at Female 04/12/2021 7:39 PM TOOL ADJUSTER Legal Sex Female 7:53 PM TOOL ADJUSTER Gender Identity Female 04/12/2021 7:39 PM TOOL ADJUSTER Sexual Orientation Straight 04/12/2021 7: 39 PM TOOL ADJUSTER documented as of this encounter Plan of Treatment Upcoming Encounters Date Type Department Care Team (Latest Contact Info) Description 09/14/2024 11:00 AM CDT Appointment Department of Radiology, [facility], in [place], [place] [address] [place] [phone] Noreen Ansari P.A.-C., M.S. [address] [place] [address] Jesus Figueroa M.D. [address] [place] [phone] 09/14/2024 4:00 PM CDT Telemedicine Division of Pulmonary Medicine in [place], [place] [address] [place] [phone] Ben Dickson APRN, C.N.P. [address] [place] [phone] 09/15/2024 8:00 AM CDT Lab Department of Laboratory Medicine and Pathology, [facility], in [place], [place] [address] [place] [phone] Edgar Montgomery M.B.B.S., M.S. [address] [place] [phone] 09/15/2024 10:00 AM CDT [facility] [place], [place] [address] [place] [phone] Edgar Montgomery M.B.B.S., M.S. [address] [place] [phone] Miriam Strickland M.D. [address] [place] [phone] 09/15/2024 11:00 AM CDT Office Visit Ramirez Navarrete [facility] in [place], [place] [address] [place] [phone] Edgar Montgomery M.B.B.S., M.S. [address] [place] [phone] Discharge Disposition: Home or Self Care 09/15/2024 1:45 PM CDT Infusion Department of Infusion Therapy in [place], [place] [address] [place] [address] Juan Pete M.D. [address] [place] [phone] 09/18/2024 2:15 PM CDT Hospital Encounter Department of Radiology, [facility] in [place], [place] [address] [place] [phone] Edgar Montgomery M.B.B.S., M.S. [address] [place] [phone] 09/20/2024 3:00 PM CDT Comprehensive Visit [facility] in [place], [place] [address] [place] [phone] Catia Quintana APRN, C.N.P. [address] [place] [phone] 10/03/2024 9:00 AM CDT Appointment Department of Radiology, [facility] in [place], [place] [address] [place] [address] Marisabel Carpenter APRN, C.N.P., D.N.P. [address] [place] [phone] 10/05/2024 12:00 PM CDT Appointment Division of Pulmonary Medicine in [place], [place] [address] [place] [phone] Edgar Montgomery M.B.B.S., M.S. [address] [place] [phone] 10/10/2024 7:50 AM CDT Lab Department of Laboratory Medicine and Pathology, [facility] in [place], [place] [address] [place] [address] Marisabel Carpenter APRN, C.N.P., D.N.P. [address] [place] [phone] 10/10/2024 8:00 AM CDT Lab Department of Laboratory Medicine and Pathology, [facility] in [place], [place] [address] [facility] [address] Marisabel Carpenter APRN, C.N.P., D.N.P. [address] [place] [phone] 10/10/2024 8:30 AM CDT Nurse Only [facility] in [place], [place] [address] [place] [address] Marisabel Carpenter APRN, C.N.P., D.N.P. [address] [place] [phone] 10/10/2024 9:20 AM CDT Appointment Department of Radiology, [facility] in [place], [place] [address] [place] [address] Marisabel Carpenter APRN, C.N.P., D.N.P. [address] [place] [phone] 10/10/2024 9:45 AM CDT Appointment Department of Laboratory Medicine and Pathology, [facility] in [place], [place] [address] [place] [phone] Marisabel Carpetner APRN, Katrin.N.P., D.N.P. [address] [place] [phone] 10/10/2024 1:30 PM CDT Appointment Department of Radiology, [facility], in [place], [place] [address] [place] [address] Marisabel Carpenter APRN C.N.PSuma, D.N.P. [address] [place] [phone] 10/10/2024 2:45 PM CDT Appointment Department of Radiology, [facility], in [place], [place] [address] [place] [address] Marisabel Carpenter APRN, C.N.PSuma, D.N.P. [address] [place] [phone] 10/11/2024 8:00 AM CDT Office Visit [facility] in [place], [place] [address] [place] [address] Marisabel Carpenter APRN, C.N.P., D.N.P. [address] [place] [phone] 10/11/2024 11:00 AM CDT Comprehensive Visit [facility] in [place], [place] [address] [place] [address] Sree Devlin M.D. [address] [place] [phone] 10/11/2024 1:00 PM CDT Comprehensive Visit Department of Otorhinolaryngology in [place], [place] [address] [place] [phone] Randal Urbano P.A.-C., M.S. [address] [place] [phone] 10/11/2024 2:00 PM CDT Office Visit [facility] in [place], [place] [address] [place] [phone] Hiro Murillo P.A.-C. [address] [place] [phone] 10/11/2024 4:00 PM CDT Comprehensive Visit Department of Dermatology in [place], [place] [address] [place] [phone] Parul Martinez M.D. [address] [place] [phone] 10/12/2024 8:00 AM CDT Telemedicine [facility] in [place], [place] [address] [place] [phone] Ervin Mckeon D.O. [address] [place] [phone] 11/01/2024 2:15 PM CDT Appointment Division of Pulmonary Medicine in [place], [place] [address] [place] [phone] Edgar Montgomery M.B.B.S., M.S. [address] [place] [phone] documented as of this encounter Visit Diagnoses Not on filedocumented in this encounter Additional Health Concerns Infection Onset Date Last Indicated Resolved Time Protective Environment 10/10/2022 10/10/2022 Assessment Noted Time PHQ-9 Depression Total Score: 4 08/12/19 25 3:31 PM CDT documented as of this encounter Care Teams Shingle Catcher Relationship Specialty Start Date End Date Ana Red MPAS, P.ALupillo. [address] [place] [address] [place] [phone] PCP - General Internal Medicine 12/01/21 [facility] 08/25/21 documented as of this encounter
--- OUTSIDE RECORDS SUMMARY | 2024-09-14 01:33 | XMS_ITS | Encounter Summary ---
Author Organization [facility] Address [address] [place] [address] Care Team Providers Care Armor Reconnaissance Vehicle Driver Name Role Phone Ana Red P.A.-C. Primary Care Pro vider Reason for Referral * Medication Prior Authorization - Pending Review Specialty Diagnoses / Procedures Referred By Meir lara Referred To Contact Noreen Ansari P.A.-C., M.S. [address] [place] [phone] Phone: tel: fax: Referral ID Status Reason Start Date Expiration Date V isits Requested Visits Authorized [id number] Pending Review 1 1 Reason for Visit * Auth/Cert (Routine) Specialty Diagnoses / Procedures Referred By Meir lara Referred To Contact Diagnoses Nausea And Vomiting Abdominal Pain Rejection Liver Transplant (HCC) Procedures ip Referral ID Status Reason Start Date Expiration Date Visits Re quested Visits Authorized [id number] 1 1 Encounter Details Date Type Department Care Team (Latest Contact Info) Description 09/06/2024 6:25 PM CDT - 09/09/2024 5:52 PM CDT Hospital Encounter [facility], [facility], Tenth Floor [address] [place] [phone] Michelle Luz M.D., M.S. [address] [place] [phone] Ben Redmond APRN, C.NSumaPSuma, D.N.P. [address] [place] [phone] Rejection Graft Acute (Primary Dx); Transplant Liver (HCC); Nausea; Medication Therapy Group Home Not 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; Rejection Liver Transplant (HCC); Pain [...] alcohol in about a year or so. [facility] oboxoities Answer Date Recorded In the past 12 months has [employer], oil, or water [employer] threatened to shut off services in your [...] 02/10/2022 How often do you attend [facility] or buddhism services? Patient declined 02/10/2022 Do you belong [...] 0 08/11/2024 [facility] - Occupational Stress Questionnaire Answer Date [...] living situation today? I have a [facility] place to live 09/09/2024 Education Answer Date Recorded What is the highest level of school you have completed or the highest degree you have received? Associate degree: occupational, technical, or vocational program 07/16/2021 Comments No Sex and Gender Information Value Date Recorded Sex Assigned at Female 04/12/2021 7:39 PM UROLOGIST PHYSICIAN Legal Sex Female 7:53 PM UROLOGIST PHYSICIAN Gender Identity Female 04/12/2021 7:39 PM UROLOGIST PHYSICIAN Sexual Orientation Straight 04/12/2021 7: 39 PM UROLOGIST PHYSICIAN documented as of this encounter Last [...] AM CDT DISCHARGE SUMMARY BRIEF OVERVIEW Hospital: [facility] Discharge Provider: Michelle Luz M.D. Primary Team: T Liver Transplant Primary Care Providers: Ana Red MPAS, P.A.-C. (General) [address] [facility] [phone] Primary Care Provider Primary Care Provider Other [...] Infusion Therapy 09/13/2024 1:00 PM Felicita Velazco M.S.N., R.N., CDCES Nutrition 09/13/2024 3:15 PM INF CHAIR 15 [...] IP CONSULT TO DIABETES IP CONSULT TO SAUSAGE STRINGER IP CONSULT TO DIETITIAN CONDITION AT DISCHARGE stable Discharge instructions were provided to the patient and caregiver(s). Total time spent in discharge services today: 24 minutes. documented in this encounter Discharge Instructions * Discharge Instructions* Ines Atkins, YARITZA, C.N.P. - 09/07/2024 7:10 AM CDT You were discharged from the [facility] Liver Transplant Service. Please identify [...] management, yearly follow up with a local Inker Machine and Dietitian is recommended. Please check with your insurance company as diabetes education visits are commonly covered. Your primary care provider can provide referrals for education. * Attachments The following attachments cannot be sent through Care Everywhere. * Pentamidine (By breathing) (Swiss) * Valganciclovir (By mouth) (Swiss) documented in this encounter Medications at [...] glucose testing. 1 each 05/15/2024 1:09 PM UROLOGIST PHYSICIAN 05/15/2024 blood sugar diagnostic strips Use to test blood sugar 2 time(s) per day. 100 test 1 07/04/2024 1:55 PM UROLOGIST PHYSICIAN 07/04/2024 07/05/19 26 blood-glucose meter misc Test as directed for diabetes control. 1 each 05/15/2024 1:09 PM UROLOGIST PHYSICIAN 05/15/2024 blood-glucose sensor (FreeStyle Kristina 3 Plus [...] (six) hours Indication: Acute Pain. 10 tablet 09/08/2024 insulin aspart U-100 (NovoLOG Flexpen U-100 Insulin) [...] 15 mL 09/09/2024 12:32 PM CDT 09/08/2024 insulin glargine 100 unit/mL (3 mL) pen Inject 8 Units under the skin 2 (two) times a day. 15 mL 1 09/08/2024 lancets Use 2 (two) times a day. Use as directed for diabetes testing. 100 each 1 07/04/2024 1:55 PM UROLOGIST PHYSICIAN 07/04/2024 levonorgestreL (MIRENA) 21 mcg/24 hours (8 yrs) 52 mg IUD 1 Intra Uterine Device (1 each total) by intrauterine route continuously. Inserted 07/31/2022. 1 each 12/31/2022 lidocaine 4 % adhesive patch,medicated Place 1 patch on the skin daily. Apply to painful areas. 30 patch 1 04/20/2024 wfzcfq-sikejwtv-og ylase (Creon) 12,000-38,000-60,[address] [...] at bedtime. 90 tablet 3 04/20/2024 04/20/20 multivitamin tablet Take 1 tablet by mouth daily. 30 tablet 3 03/27/2024 naloxone (Narcan) 4 mg/actuation nasal spray Administer 1 spray (4 mg total) into one nostril as needed for reversal. Repeat with second device in other nostril after 2-3 minutes if no or minimal response. 2 each 04/25/2024 12:55 PM UROLOGIST PHYSICIAN 04/25/2024 ondansetron (Zofran) 8 mg tabletIndications: Transplant Liver (HCC),Nausea,Medic ation Therapy Communication Engineer Not 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 Take 1 tablet (8 mg [...] are scheduled for 10/05/2024 & 11/01/2024. 10/05/2024 polyethylene glycol (Miralax) 17 gram powder packet Take 1 packet (17 g total) by mouth daily. Dissolve each 17 g dose in 240 mLs (8 ounces) of beverage. 30 packet 06/28/2024 predniSONE (Deltasone) 5 mg tablet Take 1 tablet (5 mg total) by mouth daily. 90 tablet 06/27/2024 5:33 PM UROLOGIST PHYSICIAN 06/28/2024 pregabalin (Lyrica) 75 mg capsule Take 1 capsule (75 mg total) by mouth 2 (two) times a day. 60 capsule 09/08/2024 10/09/19 prochlorperazine (Compazine) 10 mg tablet Take 1 tablet (10 mg total) by mouth every 6 (six) hours as needed for nausea or vomiting. 30 tablet 08/31/2024 9:26 AM CDT 08/31/2024 sennosides-docusat e sodium (Senokot-S) 8.6-50 mg per tablet Take 1 tablet by mouth 2 (two) times a day as needed for constipation. 100 tablet 06/27/2024 5:33 PM UROLOGIST PHYSICIAN 06/27/2024 tacrolimus (Prograf) 1 mg capsuleIndications :prevention of liver transplant rejection Take 4 capsules (4 mg total) by mouth 2 (two) times a day Indications: liver transplant rejection prevention. 720 capsule 3 09/09/2024 09/10/19 teriparatide (Forteo) 20 mcg/dose (600mcg/2.4mL) injection Inject [...] 09/09/2024 12:32 PM CDT 09/09/2024 12/07/19 25 documented as of this encounter Progress [...] 0634 09/09/24 0536 09/09/24 0152 09/08/24 2342 09/08/24200609/08/24 1617 09/08/24 1213 GLUCOSEPOC 382 H -- [...] in agreement with the plan. DCS pager [facility] [phone] will continue to follow. Call primary service for diabetes concerns between 6:30 p.m. and 6:30 a.m. Primary service to contact video control engineer Endocrinology fellow via hospital emergency communications operator for questions. * Michelle Luz M.D., [...] this time. * Katerine Garber, Pharm.D., R.Ph., [facility] - 09/08/2024 12:36 PM CDT Transplant Pharmacist [...] with days 5 and 7 outpatient inITC ([facility]) - these have been scheduled. Initiate valganciclovir [...] desire to trial capsules over sublingual on 5/8 AM rounds. Tolerated this with 8 mg [...] daily - was removed 08/25 dismissal from [facility], will add back to medication list [...] Summary Liver Transplant - 10/10/2022 (#1) - [facility] POD: 1 year 10 months Protocols All Organs - Lab Interval Every 2 Weeks Liver Primary [place] Diagnosis Alcoholic Cirrhosis Liver Secondary [place] Diagnosis -- Donor Serologies Recipient Liver Donor (Pre-donation Results) Anti-CMV CMV IgG: Negative Positive CMV IgM: Negative -- CMV Nucleic Acid: Undetected -- EBV IgG EBV VCA IgG: Positive Positive EBV IgM EBV VCA IgM: Negative Not Done Toxoplasma Toxoplasma IgG: Negative Negative Toxoplasma IgG Value: <3 -- Active Patient Thresholds Lab Low High Effective Since Comment Tacrolimus Level 5 8 05/12/2024 Ktaerine Garber, Pharm.D., R.Ph., BCPS [phone] * Ines Atkins, YARITZA, C.N.P. - 09/08/2024 [...] Diet Adult Diet Regular starting at 09/06 1846 OBJECTIVE VITAL SIGNS Temperature: 36.7 ??C Resp [...] in agreement with the plan. DCS pager [facility] [phone] will continue to follow. Call primary service for diabetes concerns between 6:30 p.m. and 6:30 a.m. Primary service to contact video control engineer Endocrinology fellow via hospital emergency communications operator for questions. * Edgar Montgomery M.B.B.S., [...] last 7 days Lab Units 09/08/24 05009/07/24 0709/06/24202909/05/24 1127 WBC x10(9)/L 5.2 8.7 6.4 4.5 HEMOGLOBIN g/dL 13.0 15.0 15.2* 15.9* HEMATOCRIT % 37.9 45.3* 43.6 46.1* PLATELETS AUTO x10(9)/L 120* 109* 195 226 Results from last 7 days Lab Units 09/08/24 05009/07/24 0732 09/06/24202909/05/24 1127 SODIUM mmol/L 135 133* [...] with family in the next 24-48 hrs Kishore Esposito.B.S., M.S. * Katerine Garber, Pharm.D., R.Ph., BCPS [...] days 5 and 7 outpatient in [facility] ([facility]) Initiate valganciclovir x4 weeks for CMV prophylaxis. [...] would need to be sent to the [facility] that will administer it, then that center's infusion therapy centers legal billing specialist should review and investigate insurance coverage [...] daily - was removed 08/25 dismissal from [facility], will add back to medication list [...] Summary Liver Transplant - 10/10/2022 (#1) - [facility] POD: 1 year 10 months Protocols All Organs - Lab Interval Every 2 Weeks Liver Primary [place] Diagnosis Alcoholic Cirrhosis Liver Secondary [place] Diagnosis -- Donor Serologies Recipient Liver Donor [...] 8 05/12/2024 Katerine Garber Pharm.D., R.Ph., BCPS [phone] * Loc العراقي R.R.T., C.R.T., L.R.T. - 09/07/2024 12:49 PM CDT Patient seen by RT for Pentamidine treatment. Pentamidine pretreated with albuterol given by nursing. Patient tolerated the treatment well. Contact RT with any questions or concerns. Electronically signed by: Loc العراقي R.R.T., C.R.T., L.R.T. 09/07/24 12:50 PM CDT * Andreas Matthews R.N. - 09/07/2024 12:34 PM CDT Patient's diabetes technology(Oxyrane UKe 3) downloaded. Report has been uploaded to [...] Esposito., M.S. * Natanael Patel, Pharm.D., R.Ph., BCPS - 09/06/2024 7:42 PM CDT Images from [...] patient preference or insurance coverage. blood-glucose meter [facility] [place] -- 05/15/24 -- Test as directed [...] needed. Apply to painful areas as needed jihnsp-hccuvxaz-appouzk (Creon) 12,000-38,000-60,[address] capsule 09/06/2024 [...] of brand name Prograf; Do not use Loffles generic tacrolimus products. Indications: liver transplant rejection prevention. teriparatide (Forteo) 20 mcg/dose (600mcg/2.4mL) injection 09/05/2024 at Noon Self 10/27/23 -- Inject 0.08 mL (20 mcg total) under the skin daily. traZODone (DesyreL) 50 mg tablet 09/05/2024 at Bedtime -- 07/27/24 -- TAKE 1 TO 3 [...] protocol for acute cellularrejection that progressed from rgtg-gw-gzzmsuwj severity despite 3 doses of IV Solu-Medrol. [...] documented in this encounter Consult Notes * Titi Dyana Connor RDN, LD - 09/08/2024 11:59 AM CDTAssociated Order(s): Dietitian consult (hospital) Dietitian consult (hospital) Referring Provider: Rachna Bhat M.S., [place], LD Clinical Nutrition: Initial Assessment Clinical Nutrition [...] No issues GI Function:Last BM Date: 09/06/24, Brick Stool Chart: Type 4: Like a sausage or snake, smooth and soft, Passing Flatus: Yes Integumentary/Wounds: Lines/Drains/Airways Wound Duration Wound 09/05/24 Puncture Abdomen Lateral;Right;Upper;Quadrant Liver Bx 2 days Medications: Current Medications[3]includes Vitamin D, insulin, multivitamin, Creon, Mirtazapine Anthropometrics: Height: 152.6 cm Admission Weight: 50 kg (09/06/2024) Current Weight: 50 kg Goodells Body Weight (Calculated) : 45.7 kg BMI [...] Moderate Loss Estimated Needs: Total Calorie Needs: 9617-6447 calories/day Method to Estimate Energy Needs: kcal/kg [...] small meals/day Recommendations: As discussed on rounds, august d/c multivitamin to reduce pill burden. Patient goal of weight stability and two Ensure Clear/day Clinical Nutrition will continue to follow. For questions about patient's nutritional care please contact pager [phone] on weekdays 07:30-16:00 or [phone] on weekends/holidays ([facility]) [phone]. [1] Past Medical History: Diagnosis Date Alcoholic [...] ESOPHAGOGASTRODUODENOSCOPY; Surgeon: Matthew Jerome M.B.B.S., M.D.; Location: [facility] GI LAB ESOPHAGOGASTRODUODENOSCOPY N/A 09/27/2022 Procedure: ESOPHAGOGASTRODUODENOSCOPY; Surgeon: Naomie Mueller M.B.B.S.; Location: [facility] GI LAB GALLBLADDER SURGERY 10/10/2022 Came out when i had my liver transplant LITHOTRIPSY EXTRACORPOREAL SHOCK WAVE UNILATERAL N/A 12/02/2022 Procedure: Pancreatic LITHOTRIPSY EXTRACORPOREAL SHOCK WAVE UNILATERAL; Surgeon: Juan Casillas M.D., M.P.H.; Location: [facility] OR ORGAN TRANSPLANT 10/10/2022 Liver transplant surgery OTHER SURGICAL HISTORY Unsure Tendon repair surgery and surgery on left elbow. TENDON REPAIR Left left foot per patient TRANSPLANT LIVER - DONOR WITH BACK TABLE PREP LIVER ALLOGRAFT N/A 10/10/2022 Procedure: TRANSPLANT LIVER - DONOR WITH BACK TABLE PREP LIVER ALLOGRAFT; Surgeon: Nataliia Vann M.D.; Location: [facility] OR [3] Current Facility-Administered Medications: acetaminophen tablet 325 mg (TylenoL), 325 mg, oral, PRN, Ben Redmond APRN, C.N.P., D.N.P. acetaminophen tablet 500 mg (TylenoL), 500 mg, oral, Q6H PRN, Ben Redmond APRN, C.N.P., D.N.P., 500 mg at 09/07/24 1223 acetaminophen tablet 650 mg (TylenoL), 650 mg, oral, Daily, Ben Redmond APRN, C.N.P., D.N.P.,650 mg at 09/07/246 anti-thymocyte globulin rabbit 75 mg, hydrocortisone sodium succinate (PF) 12.5 mg, heparin (porcine) 500 Units in NaCl 0.9% 265.75 mL IVPB (Thymoglobulin), 1.5 mg/kg (Goodells), intravenous, Daily, Ben Redmond APRN, C.N.P., D.N.P., Last Rate: 44.3 mL/hr at 09/07/24 2220, 75 mg at 09/07/24 2220 bisacodyL suppository 10 mg (Dulcolax), 10 mg, rectal, Daily PRN, Ben Redmond APRN, C.N.P., D.N.P. calcium carbonate chewable tablet 200 mg of calcium (Tums), 200 mg of calcium, oral, Q4H PRN, Ben Redmond APRN, C.N.P., D.N.P. camphor-menthoL 0.5-0.5 % lotion 1 Application (Sarna), 1 Application, topical, TID PRN, Edgar Montgomery, Elizabeth.B.B.S., M.S. cholecalciferol (vitamin D3) tablet 50 mcg, [...] Redmond APRN, C.N.P., D.N.P., 25 mg at 09/07/246 diphenhydrAMINE injection 25 mg (BenadryL), 25 mg, [...] Units, subcutaneous, TID with meals, Ines Atkins APRN, C.N.P. insulin aspart U-100 injection 0-13 Units (NovoLOG FlexPen), 0-13 Units, subcutaneous, TID, VeglVerenice benavidesia Silvano, RADIOLOGY PHYSICIAN, C.N.P., 10 Units at 09/08/24 0835 insulin aspart U-100 injection 0-7 Units (NovoLOG FlexPen), 0-7 Units, subcutaneous, Daily at bedtime, Magy Barclay RADIOLOGY PHYSICIAN, C.N.P. insulin aspart U-100 injection 0-7 Units (NovoLOG FlexPen), 0-7 Units, subcutaneous, Q24H, VeVerenice crawleyia Silvano RADIOLOGY PHYSICIAN, C.N.P., 6 Units at 09/08/24 0309 insulin glargine injection 8 Units, 8 Units, subcutaneous, BID, Ben Redmond APRN, C.N.P., D.N.P., 8 Units at 09/08/24 0829 lidocaine 5 % 1 patch (Lidoderm), 1 patch, transdermal, Daily PRN, Ben Redmond APRN, C.N.P., D.N.P., 1 patch at 09/07/24 1223 qjqwtn-vpvjzisy-uqijqom 12,000-38,000-60,[address] capsule 24,000 Units [...] APRN, C.N.P., D.N.P., 15 mg at 09/07/242013 avxmuusvqjrc-wzrs-XR-Ca-minerals 400 mcg (folic acid) tablet 1 tablet, 1 tablet, oral, Daily, Ben Redmond APRN, C.N.P., D.N.P., 1 tablet at 09/08/24824 ondansetron ODT disintegrating tablet 8 mg (Zofran-ODT), 8 mg, oral, BID, Edgar Montgomery M.B.B.S., M.S., 8 mg at 09/08/[address] tablet 40 mg (Protonix), 40 mg, oral, Daily before morning meal, Ben Redmond APRN, C.N.P., D.N.P., 40 mg at 09/08/24 0749 polyethylene glycol powder packet 17 g (Miralax), 17 g, oral, Daily PRN, Ben Redmond APRN, C.N.P., D.N.P. predniSONE tablet 30 mg (Deltasone), 30 mg, oral, Daily, Ben Redmond APRN, C.N.P., D.N.P., 30mg at 09/07/242125 predniSONE tablet 5 mg (Deltasone), 5 mg, oral, Daily, Ben Redmond APRN, C.N.P., D.N.P., 5 mgat 09/08/24 0825 pregabalin capsule 75 mg (Lyrica), 75 [...] mg, oral, Daily with morning meal, Natanael Patel Pharm.D., R.Ph., BCPS, 900 mg at 09/08/24 0825 [...] monitors blood glucose at home continuously with [employer] Kristina continuous glucose monitor (CGM). Results of [...] Adult Diet Regular starting at 09/06 1845 REVIEW OF SYSTEMS Pertinent items are noted [...] Thank you for the consult. DCS pager [facility] [phone] will follow. Call primary service for diabetes concerns between 6:30 p.m. and 6:30 a.m. Primary service to contact video control engineer Endocrinology fellow via hospital emergency communications operator for questions. documented in this encounter [...] documented in this encounter Miscellaneous Notes * Hospital Course - Juan Mueller M.D. [...] 11:00 AM CDT Appointment Department of Radiology, [place], [place] [address] [place] [phone] Noreen Ansari P.A.-Katrin., M.S. [address] [place], [place] [phone] Jesus Figueroa M.D. [address] [place] [phone] 09/14/2024 4:00 PM CDT Telemedicine Division of Pulmonary Medicine in [place], [place] [address] [place] [phone] Ben Dickson APRN, C.N.P. [address] [place] [phone] 09/15/2024 8:00 AM CDT Lab Department of Laboratory Medicine and Pathology, [facility] in [place], [place] [address] [place] [phone] Edgar Montgomery M.B.B.S., M.S. [address] [place] [phone] 09/15/2024 10:00 AM CDT Comprehensive Visit [facility] Transplantation and Clinical Regeneration in [place], [place] [address] [place] [phone] Edgar Montgomery M.B.B.S., M.S. [address] [place] [phone] Miriam Strickland M.D. [address] [place] [phone] 09/15/2024 11:00 AM CDT Office Visit [facility] Transplantation and Clinical Regeneration in [place], [place] [address] [place] [phone] Edgar Montgomery M.B.B.S., M.S. [address] [place] [phone] Discharge Disposition: Home or Self Care 09/15/2024 1:45 PM CDT Infusion Department of Infusion Therapy in [place], [place] [address] [place] [phone] Juan Pete M.D. [address] [place] [phone] 09/18/2024 2:15 PM CDT Hospital Encounter Department of Radiology, [facility], in [place], [place] [address] [place] [phone] Edgar Montgomery M.B.B.S., M.S. [address] [place] [phone] 09/20/2024 3:00 PM CDT Comprehensive Visit [facility] Transplantation and Clinical Regeneration in [place], [place] [address] [place] [phone] Catia Quintana APRN, C.N.P. [address] [place] [phone] 10/03/2024 9:00 AM CDT Appointment Department of Radiology, [place], [place] [address] [place] [phone] Marisabel Carpenter APRN, C.N.P., D.N.P. [address] [place] [phone] 10/05/2024 12:00 PM CDT Appointment Division of Pulmonary Medicine in [place], [place] [address] [place] [phone] Edgar Montgomery M.B.B.S., M.S. [address] [place] [phone] 10/10/2024 7:50 AM CDT Lab Department of Laboratory Medicine and Pathology, [facility] in [place], [place] [address] [place] [phone] Marisabel Carpenter APRN, C.N.P., D.N.P. [address] [place] [phone] 10/10/2024 8:00 AM CDT Lab Department of Laboratory Medicine and Pathology, [facility] in [place], [place] [address] [place] [phone] Marisabel Carpenter APRN, C.N.P., D.N.P. [address] [place] [phone] 10/10/2024 8:30 AM CDT Nurse Only Ramirez Nguyen [facility] Clinical Regeneration in [place], [place] [address] [place] [phone] Marisabel Carpenter APRN, C.N.P., D.N.P. [address] [place] [phone] 10/10/2024 9:20 AM CDT Appointment Department of Radiology, [facility] in [place], [place] [address] [place] [phone] Marisabel Carpenter APRN, C.N.P., D.N.P. [address] [place] [phone] 10/10/2024 9:45 AM CDT Appointment Department of Laboratory Medicine and Pathology, [place], [place] [address] [place] [phone] Marisabel Carpenter APRN, C.N.P., D.N.P. [address] [place] [phone] 10/10/2024 1:30 PM CDT Appointment Department of Radiology, [facility] in [place], [place] [address] [place] [phone] Marisabel Carpenter APRN, C.N.P., D.N.P. [address] [place] [phone] 10/10/2024 2:45 PM CDT Appointment Department of Radiology, [facility] in [place], [place] [address] [place] [phone] Marisabel Carpenter APRN, C.N.P., D.N.P. [address] [place] [phone] 10/11/2024 8:00 AM CDT Office Visit [facility] Clinical [facility] in [place], [place] [address] [place] [phone] Marisabel Carpenter APRN, C.NDayne, D.N.P. [address] [place] [phone] 10/11/2024 11:00 AM CDT Comprehensive Visit [facility] Transplantation and Clinical Regeneration in [place], [place] [address] [place] [phone] Sree Devlin M.D. [address] [place] [phone] 10/11/2024 1:00 PM CDT Comprehensive Visit Department of Otorhinolaryngology in [place], [place] [address] [place] [phone] Randal Urbano, P.A.-C., M.S. [address] [place] [phone] 10/11/2024 2:00 PM CDT Office Visit [facility] Transplantation and Clinical Regeneration in [place], [place] [address] [place] [phone] Hiro Murillo P.A.-C. [address] [place] [phone] 10/11/2024 4:00 PM CDT Comprehensive Visit Department of Dermatology in [place], [place] [address] [place] [phone] Parul Martinez M.D. [address] [place] [phone] 10/12/2024 8:00 AM CDT Telemedicine [facility] in [place], [place] [address] [place] [phone] Ervin Mckeon D.O. [address] [place] [phone] 11/01/2024 2:15 PM CDT Appointment Division of Pulmonary Medicine in [place], [place] [address] [place] [phone] Edgar Montgomery M.B.B.S., M.S. [address] [place] [phone] documented as of this encounter Procedures Procedure [...] LAB POCT ORDERABLES-MANUAL Lupe l Result POC [facility] [address] [place] [address], [facility] PCDE [facility] [place] [facility] POC [address] [place] [address] * (ABNORMAL) Glucose, POCT (09/09/2024 9:56 AM CDT) Glucose, POCT, B 144(H) 70 - 140 mg/dL 09/09/2024 9:58 AM CDT PCDE Site Capillary 09/09/2024 9:58 AM CDT PCDE Last Intake > 4 hours 09/09/2024 9:58 AM CDT PCDE Blood 09/09/2024 9:56 AM CDT 09/09/2024 9:58 AM CDT us Unknown Provider LAB POCT ORDERABLES-MANUAL Lupe l Result Performing Organization Address [facility] Co de Phone Number POC [employer] [facility] [address] [place] [address] PCDE [facility] POC [address] [place] [address] * (ABNORMAL) Glucose, POCT (09/09/2024 6:34 AM CDT) Glucose, POCT, B 382(H) 70 - 140 mg/dL 09/09/2024 6:45 AM CDT PCDE Last Intake 3-4 hours 09/09/2024 6:45 AM CDT PCDE Blood 09/09/2024 6:34 AM CDT 09/09/2024 6:46 AM CDT Unknown Provider LAB POCT ORDERABLES-MANUAL Lupe l Result Performing Organization Address [facility] Phone Number POC [employer] [facility] [address] PCDE [facility] POC [address] [place] [address] * (ABNORMAL) Tacrolimus, Trough (09/09/2024 5:36 AM CDT) Tacrolimus, Trough 4.2(L) 5.0-15.0 (Trough) ng/mL 09/09/2024 1:10 PM CDT [facility] Comment: ----ADDITIONAL INFORMATION---- Target steady-state trough concentrations vary depending on the type of transplant, concomitant immunosuppression, clinical/institutional protocols, and time post-transplant. Results should be interpreted in conjunction with this clinical information and any physical signs/symptoms of rejection/toxicity. Testing performed by Liquid Chromatography-Tandem Mass Spectrometry (LC-MS/MS). This test was developed and its performance characteristics determined by [facility] in a manner consistent with CLIA requirements. This test has not been cleared or approved by the U.S. Food and Drug Administration. Blood (Blood, Venous) 09/09/2024 5:36 AM CDT 09/09/2024 8:15 AM CDT Salima Garcia APRN C.N.P., D.N.P. LAB BLOOD NON ADD-ON Final Result Performing Organization Address City/[facility] Co de Phone Number [facility] [address] [place] [address] [facility] [address] [place] [address] [place] [address] * (ABNORMAL) Hepatic Function Panel (09/09/2024 5:36 [...] AM CDT 09/09/2024 6:02 AM CDT Edgar Santana., M.S. LAB BLOOD ADD-O N Final Result Performing Organization Address City/[facility]/ZIP Co de Phone Number [facility] [address] [place] [address], [facility] DTL [facility] 200 [place] [address] * (ABNORMAL) CBC with Differential, Blood (09/09/2024 [...] AM CDT 09/09/2024 5:50 AM CDT Edgar Santillan, M.S. LAB BLOOD ADD-O N Final Result Performing Organization Address City/[facility] Co de Phone Number [facility] [address] [place] [address], [place] DTL [facility] [address] [place] [address] [facility] 200 [place] [address] * (ABNORMAL) Basic Metabolic Panel (09/09/2024 5:36 AM CDT) [facility] Potassium, S 3.8 3.6 - 5.2 mmol/L [...] M.S. LAB BLOOD ADD-O N Final Result [facility] [address] [place] [address], [facility] DTL [facility] [address] [place] [address] * (ABNORMAL) Glucose, POCT (09/09/2024 1:52 AM CDT) Glucose, POCT, B 404(H) 70 - 140 mg/dL 09/09/2024 1:57 AM CDT PCDE Last Intake 3-4 hours 09/09/2024 1:57 AM CDT PCDE Blood 09/09/2024 1:52 AM CDT 09/09/2024 1:57 AM CDT Unknown Provider LAB POCT ORDERABLES-MANUAL Lupe l Result Performing Organization Address [facility] Co de Phone Number POC [employer] [facility] [address] [place] [address], [facility] PCDE [facility] POC [address] [place] [address] * (ABNORMAL) Glucose, POCT (09/08/2024 11:42 PM CDT) Glucose, POCT, B 321(H) 70 - 140 mg/dL 09/08/2024 11:45 PM CDT PCDE Last Intake 3-4 hours 09/08/2024 11:45 PM CDT PCDE Blood 09/08/2024 11:4 2 PM CDT 09/08/2024 11:45 PM CDT us Unknown Provider LAB POCT ORDERABLES-MANUAL Lupe l Result Performing Organization Address [facility] Co de Phone Number [facility]OC [employer] [facility] [address] [place] [address], [facility] PCDE [facility] POC [address] [place] [address] * (ABNORMAL) Glucose, POCT (09/08/2024 8:07 PM CDT) Glucose, POCT, B 404(H) 70 - 140 mg/dL 09/08/2024 8:20 PM CDT PCDE Last Intake 3-4 hours 09/08/2024 8:20 PM CDT PCDE Blood 09/08/2024 8:07 PM CDT 09/08/2024 8:20 PM CDT us Unknown Provider LAB POCT ORDERABLES-MANUAL Lupe l Result Performing Organization Address City/[facility]/ZIP Co de Phone Number [facility] [address] [place] [address], [facility] PCDE [facility] POC [address] [place] [address] * Glucose, POCT (09/08/2024 4:17 PM CDT) Glucose, POCT, B 109 70 - 140 mg/dL 09/08/2024 4:20 PM CDT PCDE Site Capillary 09/08/2024 4:20 PM CDT PCDE Last Intake 3-4 hours 09/08/2024 4:20 PM CDT PCDE Blood 09/08/2024 4:17 PM CDT 09/08/2024 4:20 PM CDT us Unknown Provider LAB POCT ORDERABLES-MANUAL Lupe l Result Performing Organization Address [facility] Co de Phone Number [facility] [address] [place] [address], [facility] PCDE [facility] POC [address] [place] [address] * (ABNORMAL) Glucose, POCT (09/08/2024 12:13 PM CDT) Glucose, POCT, B 235(H) 70 - 140 mg/dL 09/08/2024 12:15 PM CDT PCDE Last Intake > 4 hours 09/08/2024 12:15 PM CDT PCDE Blood 09/08/2024 12:1 3 PM CDT 09/08/2024 12:15 PM CDT us Unknown Provider LAB POCT ORDERABLES-MANUAL Lupe l Result [facility] [address] PCDE [facility] POC [address] [place] [address] * (ABNORMAL) Glucose, POCT (09/08/2024 8:30 AM CDT) Pathologist [facility] Glucose, POCT, B 333(H) 70 - 140 mg/dL 09/08/2024 8:32 AM CDT PCDE Last Intake > 4 hours 09/08/2024 8:32 AM CDT PCDE Blood 09/08/2024 8:30 AM CDT 09/08/2024 8:32 AM CDT us Unknown Provider LAB POCT ORDERABLES-MANUAL Lupe l Result Performing Organization Address City/[facility]/ZIP Co de Phone Number [facility] [employer] [facility] [address] PCDE [facility] POC [address] [place] [address] * Tacrolimus, Trough (09/08/2024 5:04 AM CDT) [facility] Tacrolimus, Trough 5.0 5.0-15.0 (Trough) ng/mL 09/08/2024 11:49 AM CDT [facility] Comment: ----ADDITIONAL INFORMATION---- Target steady-state trough concentrations vary depending on the type of transplant, concomitant immunosuppression, clinical/institutional protocols, and time post-transplant. Results should be interpreted in conjunction with this clinical information and any physical signs/symptoms of rejection/toxicity. Testing performed by Liquid Chromatography-Tandem Mass Spectrometry (LC-MS/MS). This test was developed and its performance characteristics determined by [facility] in a manner consistent with CLIA requirements. This test has not been cleared or approved by the U.S. Food and Drug Administration. Blood (Blood, Venous) 09/08/2024 5:04 AM CDT 09/08/2024 7:24 AM CDT us Salima Garcia APRN, C.N.P., D.N.P. LAB BLOOD NON ADD-ON Final Result [facility] [address] [place] [address] [facility] [address] [place] [address] [place] [address] * (ABNORMAL) Hepatic Function Panel (09/08/2024 5:04 AM CDT) Bilirubin, Total, S 1.5(H) 0.0 - 1.2 [...] M.S. LAB BLOOD ADD-O N Final Result [facility] [address] [place] [address], [facility] [address] [place] [address] * (ABNORMAL) CBC with Differential, Blood (09/08/2024 [...] 5:04 AM CDT 09/08/2024 5:33 AM CDT Edgar Santana., M.S. LAB BLOOD ADD-O N Final Result [facility] [address] [place] [address], [facility] DTL [facility] [address] [place] [address] DHPM [facility] [address] [place] [address] * (ABNORMAL) Basic Metabolic Panel (09/08/2024 5:04 AM CDT) Potassium, S 3.7 3.6 - [...] AM CDT 09/08/2024 5:46 AM CDT Edgar CheryB.S., M.S. LAB BLOOD ADD-O N Final Result [facility] [address] [place] [address], [facility] [address] [place] [address] * (ABNORMAL) Glucose, POCT (09/08/2024 3:06 AM CDT) Glucose, POCT, B 350(H) 70 - 140 mg/dL 09/08/2024 3:13 AM CDT PCDE Site Capillary 09/08/2024 3:13 AM CDT PCDE Last Intake 2-3 hours 09/08/2024 3:13 AM CDT PCDE Blood 09/08/2024 3:06 AM CDT 09/08/2024 3:14 AM CDT us Unknown Provider LAB POCT ORDERABLES-MANUAL Lupe l Result Performing Organization Address [facility] Co de Phone Number [facility] [address] PCDE [facility] POC [address] [place] [address] * (ABNORMAL) Glucose, POCT (09/07/2024 11:24 PM CDT) Glucose, POCT, B 215(H) 70 - 140 mg/dL 09/07/2024 11:36 PM CDT PCDE Last Intake 3-4 hours 09/07/2024 11:36 PM CDT PCDE Blood 09/07/2024 11:2 4 PM CDT 09/07/2024 11:36 PM CDT us Unknown Provider LAB POCT ORDERABLES-MANUAL Lupe l Result Performing Organization Address [facility] de Phone Number POC [employer] [facility] [address] [place] [address], [facility] PCDE [facility] POC 200 [place] [address] * Glucose, POCT (09/07/2024 5:40 PM CDT) Glucose, POCT, B 117 70 - 140 mg/dL 09/07/2024 5:42 PM CDT PCDE Last Intake 2-3 hours 09/07/2024 5:42 PM CDT PCDE Blood 09/07/2024 5:40 PM CDT 09/07/2024 5:42 PM CDT us Unknown Provider LAB POCT ORDERABLES-MANUAL Lupe l Result Performing Organization Address City/[facility]/ZIP Co de Phone Number [facility] [address] [place] [address], [facility] PCDE [facility] POC [address] [place] [address] * (ABNORMAL) Glucose, POCT (09/07/2024 1:26 PM CDT) Glucose, POCT, B 280(H) 70 - 140 mg/dL 09/07/2024 1:30 PM CDT PCDE Site Capillary 09/07/2024 1:30 PM CDT PCDE Last Intake 2-3 hours 09/07/2024 1:30 PM CDT PCDE Blood 09/07/2024 1:26 PM CDT 09/07/2024 1:31 PM CDT us Unknown Provider LAB POCT ORDERABLES-MANUAL Lupe l Result [facility] [employer] [facility] [address] [place] [address], [facility] PCDE [facility] POC [address] [place] [address] * US Liver Transplant (09/07/2024 10:36 AM [...] Mild splenomegaly, slightly improved. Edgar Santillan, M.S. [facility] US PROCEDUR ES Final Result * (ABNORMAL) [...] ORDERABLES-MANUAL Lupe l Result Performing Organization Address City/[facility]/ZIP Co de Phone Number [facility] [address] [place] [address], [facility] PCDE [facility] POC [address] [place] [address] * (ABNORMAL) Hepatic Function Panel (09/07/2024 7:32 [...] CDT 09/07/2024 8:01 AM CDT Salima Garcia APRN, C.N.P., D.N.P. LAB BLOOD ADD-ON Final Result Performing Organization Address City/[facility]/ZIP Co de Phone Number [facility] [address] [place] [address], [facility] DTL [facility] [address] [place] [address] * (ABNORMAL) Basic Metabolic Panel (09/07/2024 7:32 AM CDT) Potassium, S 4.1 3.6 - 5.2 mmol/L [...] 7:32 AM CDT 09/07/2024 8:01 AM CDT us Salima Garcai APRN, C.N.P., D.N.P. LAB BLOOD ADD-ON Final Result [facility] [address] [place] [address], [facility] [address] [place] [address] * (ABNORMAL) CBC with Differential, Blood (09/07/2024 7:32 AM CDT) Pathologist [facility] Hemoglobin 15.0 11.6 - 15.0 g/dL 09/07/2024 [...] 7:32 AM CDT 09/07/2024 7:42 AM CDT Salima Garcia APRN, C.N.P., D.N.P. LAB BLOOD ADD-ON Final Result [facility] - [facility] [address] [place] [address], [place] DTL [facility] [address] [place] [address] [facility] [address] [place] [address] * (ABNORMAL) Tacrolimus, Trough (09/07/2024 7:32 AM CDT) Pathologist [facility] Tacrolimus, Trough 3.9(L) 5.0-15.0 (Trough) ng/mL 09/07/2024 12:00 PM CDT [facility] Comment: ----ADDITIONAL INFORMATION---- Target steady-state trough concentrations vary depending on the type of transplant, concomitant immunosuppression, clinical/institutional protocols, and time post-transplant. Results should be interpreted in conjunction with this clinical information and any physical signs/symptoms of rejection/toxicity. Testing performed by Liquid Chromatography-Tandem Mass Spectrometry (LC-MS/MS). This test was developed and its performance characteristics determined by [facility] in a manner consistent with CLIA requirements. This test has not been cleared or approved by the U.S. Food and Drug Administration. Blood (Blood, Venous) 09/07/2024 7:32 AM CDT 09/07/2024 8:53 AM CDT us Salima Garcia APRN C.N.P., D.N.P. LAB BLOOD NON ADD-ON Final Result [facility] [address] [place] [address] [facility] [address] [place] [address] [place] [address] * (ABNORMAL) Glucose, POCT (09/06/2024 9:41 PM CDT) Pathologist [facility] Glucose, POCT, B 220(H) 70 - 140 mg/dL 09/06/2024 9:44 PM CDT PCDE Last Intake 2-3 hours 09/06/2024 9:44 PM CDT PCDE Blood 09/06/2024 9:41 PM CDT 09/06/2024 9:45 PM CDT us Unknown Provider LAB POCT ORDERABLES-MANUAL Lupe l Result Performing Organization Address [facility] Co de Phone Number [facility] [address] [place] [address], [facility] PCDE [facility] POC [address] [place] [address] * Prothrombin Time (PT) (09/06/2024 8:30 PM [...] A DD-ON Final Result Performing Organization Address [facility] Co de Phone Number [facility] [address] [place], [place] [address] [place] [address] METH [facility] [address] [place] [address] * (ABNORMAL) Bilirubin, Direct (09/06/2024 8:30 PM CDT) Bilirubin, Direct, P 2.7(H) 0.0 - 0.3 mg/dL 09/06/2024 10:05 PM CDT DTL Blood (Blood, Venous) 09/06/2024 8:30 PM CDT 09/06/2024 8:58 PM CDT Ben Redmond APRN, C.N.P., D.N.P. LAB BLOOD A DD-ON Final Result Performing Organization Address [facility] Co de Phone Number [facility] [address] DTL [facility] [address] [place] [address] * (ABNORMAL) CBC without Differential (09/06/2024 8:30 PM CDT) Pathologist [facility] Hemoglobin 15.2(H) 11.6 - 15.0 g/dL 09/06/2024 [...] D.N.P. LAB BLOOD A DD-ON Final Result [facility] [address] [place] [address], [facility] METH [facility] [address] [place] [address] * (ABNORMAL) Comprehensive Metabolic Panel (09/06/2024 8:30 [...] 8:30 PM CDT 09/06/2024 8:57 PM CDT us Ben Redmond APRN, C.N.P., D.N.P. LAB BLOOD A DD-ON Final Result [facility] [address] [place] [address], [place] DTL [facility] [address] [place] [address] * ECG 12 Lead (09/06/2024 7:02 PM CDT) Ventricular Rate ECG/Min 98 BPM MUSE MS Interval 148 ms MUSE QRSD Interval 82 ms MUSE QT Interval 350 ms MUSE QTC Interval 446 ms MUSE P [place] 20 degrees MUSE R [place] 218 degrees MUSE T Wave [place] 39 degrees MUSE 09/06/2024 7:02 PM CDT [...] change was found Reviewed by STERLING Vaca us Ben Redmond APRN, C.N.P., D.N.P. ECG ORDERAB LES Final Result MUSE NA documented in this encounter Visit Diagnoses Diagnosis Rejection Liver Transplant (HCC)- Primary Rejection Graft Acute Transplant Liver (HCC) Nausea Medication Therapy Group Home Not 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 Rejection Liver Transplant (HCC) Pain [...] 68.55 mg = 1.5 mg/kg 45.7 kg [place] weight), intravenous, at 44.3 mL/hr, Administer over [...] 68.55 mg = 1.5 mg/kg 45.7 kg [place] weight), intravenous, at 44.3 mL/hr, Administer over [...] 09/07/2024 12:23 PM CDT 1 patch Flank htvnig-zckbkmpg-lhibpdb 12,000-38,000-60,[address] capsule 24,000 Units [...] Given 09/06/2024 8:47 PM CDT 15 mg zsqgtpzwvdnb-apex-DU-Ca-minerals 400 mcg (folic acid) tablet 1 tablet [...] 2125 (Given - Provider: Hilda Berumen R.N.) 1626 (Given - Provider: Isabel Kuhn R.N.) albuterol nebulizer solution 2.5 mg (COMPLETED) 2.5 mg, nebulization, Once, On Wed09/07/24 at 1145, For 1 dose, Give immediately prior to pentamidine inhalation 1120 (Given - Provider: Sofy Raymundo R.N.) anti-thymocyte globulin rabbit 75 mg, hydrocortisone sodium succinate (PF) 12.5 mg, heparin (porcine) 500 Units in NaCl 0.9% 265.75 mL IVPB (Thymoglobulin) (COMPLETED) 75 mg (rounded from 68.55 mg = 1.5 mg/kg 45.7 kg [place] weight), intravenous, at 44.3 mL/hr, Administer over [...] 1710 (New Bag - Provider: Isabel Kuhn RaGbby) cholecalciferol (vitamin D3) tablet 50 mcg 50 mcg, oral, Daily, First dose on Wed09/07/24 at 0900, cholecalciferol (vitamin D3) orderable was interchanged for cholecalciferol (vitamin D3) tablet/capsule 09 (Given - Provider: Sofy Raymundo RGabby) 0825 (Given - Provider: Isabel Kuhn RGabby) 0833 (Given - Provider: Cornelia Garvey RSumaNSuma) diclofenac sodium 1 % gel 2 g [...] refused)1630 (Not Given - Provider: Isabel Kuhn R.N. - Reason: Patient/family refused)203 (Not Given - Provider: Whit Gonzalez R.N. [...] 3. 2125 (Given - Provider: Hilda Berumen RGabby) 1627 (Given - Provider: Isabel Kuhn RSumaNSuma)1718 (Not Given - Provider: Isabel Kuhn R.N. - Reason: Other) diphenhydrAMINE capsule 25 mg (BenadryL) (COMPLETED) 25 mg, oral, Once, On Luz Marina 09/07/24 at 0230, For 1 dose 0315 (Given - Provider: Hilda A Berumen, R.N.) hydrOXYzine tablet 25 mg (Atarax) (COMPLETED) [...] 1109 (Not Given - Provider: Isabel Kuhn RGabby - Reason: Other - Comment: skipped breakfast)1323 (Given - Provider: Isabel Kuhn RGabby)1711 (Given - Provider: Isabel Kuhn RSumaNSuma)2014 (Given - Provider: Whit Gonzalez R.N.) 1052 (Given - Provider: Minal Heard RGabby)1402 (Not Given - Provider: Cornelia Garvey RSumaNSuma - Reason: Order parameters not met - [...] not met)1527 (Given - Provider: Sofy Raymundo RSumaN.)1819 (Not Given - Provider: Andrew MayenN. - Reason: Order parameters not met) 0835 (Given - Provider: Isabel Kuhn RSumaN.)1220 (Given - Provider: Isabel Kuhn R.N.)1619 (Not Given - Provider: Isabel Kuhn R.N. - Reason: Order parameters not met)2013 (Canceled Entry - Provider: Whit Gonzalez R.N.) 0640 (Given - Provider: Whit Gonzalez R.N.)1354 (Given - Provider: Conrelia Garvey RSumaNSuma)1714 (Given - Provider: Chelsy Doss RSumaNSuma) insulin aspart U-100 injection 0-7 Units (NovoLOG FlexPen) 0-7 Units, subcutaneous, Daily at bedtime, First dose on Wed09/07/24 at 2100, Insulin Scale: Modified Bedtime Correction Scale, 220-259: 3 units, 260-299: 4 units, 300-339: 5 units, 340-379: 6 units, 380-399: 7 units, Greater than 399: Call service writing insulin orders 2326 (Not Given - Provider: Whit Gonzalez R.N. - Reason: Order parameters not met) 2011 (Given - Provider: Whit Gonzalez R.N.) insulin aspart U-100 injection 0-7 Units [...] R.N.) 0226 (Given - Provider: Whit Gonzalez RGabby) insulin aspart U-100 injection 16 Units (NovoLOG [...] 0834 (Given - Provider: Cornelia Garvey R.N.) kiobew-rsmgdblj-hkgpuak 12,000-38,000-60,[address] capsule 24,000 Units of lipase (Creon) 24,000 Units of lipase, oral, 3 times daily with meals, First dose on Wed09/07/24 at 0800, Do NOT crush or chew. Capsule may be opened and the contents taken without crushing or chewing. 0925 (Given - Provider: Sofy Raymundo R.N.)1526 (Given - Provider: Sofy Raymundo R.N.)1823 (Given - Provider: Sofy Raymundo R.N.) 1110 (Not Given - Provider: Isabel Kuhn RGabby - Reason: Other - Comment: Skipped breakfast)1220 (Given - Provider: Isabel Kuhn RSumaNSuma)1625 (Given - Provider: Isabel Kuhn RSumaNSuma) 0833 (Given - Provider: Cornelia Garvey R.N.)1249 (Given - Provider: Ruma Marroquin RSumaNSuma)1714 (Given - Provider: Andrew HawkinsNSuma) mirtazapine tablet 15 mg (Remeron) 15 mg, oral, Daily at bedtime, First dose on Wed09/06/24 at 2100 2013 (Given - Provider: Michelle Jj R.NSuma) 2027 (Given - Provider: Whit Gonzalez R.N.) lmfmcsdrffxk-pcrv-NS-Ca-m inerals 400 mcg (folic acid) tablet 1 tablet 1 tablet, oral, Daily, First dose on Luz Marina 09/07/24 at 0900 0925 (Given - Provider: Sofy Raymundo R.N.) 0825 (Given - Provider: Isabel Kuhn R.N.) 0833 (Given - Provider: Cornelia Garvey R.N.) ondansetron ODT disintegrating tablet 8 mg (Zofran-ODT) 8 mg, oral, 2 times daily, First dose on Luz Marina 09/07/24 at 1930, 30 minutes before tacrolimus dose [...] Daily before morning meal, First dose on Luz Marina 09/07/24 at 0700, Swallow whole. Do NOT crush, [...] 2125 (Given - Provider: Hilda Berumen R.N.) 1624 (Given - Provider: Isabel Kuhn R.N.) predniSONE [...] at 2100 0925 (Given - Provider: Sofy Raymnudo R.N.)2013 (Given - Provider: Michelle Jj R.N.) 08 (Given - Provider: Isabel Kuhn R.N.)2027 (Given - Provider: Whit Gonzalez R.N.) 0834 (Given - Provider: Cornelia Garvey R.N.) sodium chloride 0.9 % injection 3 mL 3 mL, intravenous, Every 12 hours scheduled, First dose on Wed09/06/24 at 2100, Peripheral Intravenous Catheter and Rapid Infusion Catheter, when no infusion to maintain patency 925 (Given - Provider: Sofy Raymundo R.N.)2126 (Given - Provider: Hilda Berumen R.N.) 08 (Given - Provider: Isabel Kuhn R.N.)2027 (Given - Provider: Whit Gonzalez R.N.) 0834 (Given - Provider: Cornelia Garvey R.N.) tacrolimus capsule 2 mg (Prograf) (CANCELED)(Linked Group 1) 2 mg, sublingual, Every morning, First dose on Wed09/07/24 at 0800, Indications: prevention of liver transplant rejection 924 (Given - Provider: Sofy Kopiyevska, R.N.) tacrolimus capsule 3 mg (Prograf) 3 mg, oral, 2 times daily - immunosuppression, First dose on Luz Marnia 09/07/24 at 2000, Swallow whole, do NOT open capsules. If capsules are opened, patient should perform this action 2013 (Given - Provider: Michelle Jj R.N.) 08 [...] indigestion, for dyspepsia, Starting on Wed09/06/24 at 1845, Doses listed are in mg of elemental calcium. Take with food. 500 mg calcium carbonate contains 200 mg of elemental calcium. camphor-menthoL 0.5-0.5 % lotion 1 Application (Sarna) 1 Application, topical, 3 times daily PRN, itching, Starting on Wed09/07/24 at 1607 1548 (Given - Provider: Isabel Kuhn RGabby) cholestyramine 4 gram packet 1 packet (Prevalite) [...] drugs. 1149 (Given - Provider: Sofy Raymundo RGabby) diphenhydrAMINE injection 25 mg (BenadryL) 25 mg, [...] Hilda Berumen R.N.) 0307 (Given - Provider: Andrew GayleNSuma)1248 (Given - Provider: Chelsy Doss R.N.)1848 (Given - Provider: Isabel Kuhn RSumaNSuma) 0105 (Given - Provider: Whit Gonzalez R.N.)0944 (Given - Provider: Chelsy Doss R.N.)1619 (Given - Provider: Andrew LandaverdeNSuma) insulin aspart U-100 (Carbohydrate Count) injection 0-20 [...] Raymundo R.N.)2330 (Medication Removed - Provider: Whit Gonzalez R.N.) meclizine tablet 25 mg (Antivert) 25 [...] persists. 0842 (Given - Provider: Sofy Raymundo RGabby) polyethylene glycol powder packet 17 g (Miralax) 17 g, oral, Daily PRN, constipation, Starting on Wed09/06/24 at 184, Ordered sequence of administration: sennosides-docusate sodium tablet then polyethylene glycol then bisacodyl Avoid mixing with starch-based thickened liquids. prochlorperazine tablet 10 mg (Compazine) 10 mg, oral, Every 6 hours PRN, nausea, vomiting, Starting on Wed09/06/24 at 1845 0636 (Given - Provider: Hilda Berumen RGabby) 0307 (Given - Provider: Hilda Berumen RGabby)1218 (Given - Provider: Isabel Kuhn RSumaNSuma) 0834 (Return to Cabinet - Provider: Cornelia Garvey RSumaNSuma)0944 (Given - Provider: Chelsy Doss RGabby) promethazine injection 6.25 mg (Phenergan) 6.25 mg, intravenous, Every 6 hours PRN, nausea, vomiting, Starting on Wed09/06/24 at 1845, Administer ondansetron prior to promethazine. Do not administer promethazine in the setting of sedation or confusion. sennosides-docusate sodium 8.6-50 mg per tablet 1 tablet (Senokot-S) 1 tablet, oral, 2 times daily PRN, constipation, Starting on Wed09/06/24 at 184, Ordered sequence of administration: sennosides-docusate sodium tablet then polyethylene glycol then bisacodyl simethicone chewable tablet 80 mg 80 mg, oral, Every 4 hours PRN, flatulence, Starting on Wed09/06/24 at 1844 sodium chloride 0.9 % injection 10 mL 10 mL, intravenous, As needed, line care, Starting on Wed09/06/24 at 1844, Peripheral Intravenous Catheter and Rapid Infusion Catheter, [...] documented as of this encounter Care Teams Armor Reconnaissance Vehicle Driver Relationship Specialty Start Date End Date Ana Red MPAS, P.A.-C. [address] [place] [address] [place] [phone] PCP - General Internal Medicine 12/01/21 [facility] [place] [facility] 08/25/21 documented as of this encounter
--- OUTSIDE RECORDS SUMMARY | 2024-09-14 01:33 | XMS_ITS | Encounter Summary ---
Author Organization [facility] Address [address] [place] [id number] Care Team Providers Care X Ray Operator Name Role Phone Ana Red P.A.-C. Primary Care Pro vider Reason for Referral * Outpatient (Routine) - Closed Specialty Diagnoses / Procedures Referred By Meir lara Referred To Contact Diagnoses Transplant Liver (HCC) Procedures Place peripherally inserted central catheter (PICC) Noreen Ansari P.A.-C., M.S. [address] [place] [phone] Phone: tel: fax: [facility] Referral ID Status Reason Start Date Expiration Date Visits Re quested Visits Authorized [id number] Closed 09/13/2024 12/14/2025 1 1 Reason for Visit * Reason Comments Procedure PICC placement * Episode Based Medications (Routine) - Closed Specialty Diagnoses / Procedures Referred By Meir lara Referred To Contact Diagnoses Rejection Graft Acute Procedures [place] ANTITHYMOCYTE GLOBULN RABBIT Edgar Montgomery M.B.BSumaS., M.S. [address] [place] [phone] Phone: tel: fax: Edgar Montgomery M.B.B.S., M.S. [address] [place] [address] Phone: tel: fax: Referral ID Status Reason Start Date Expiration Date Visits Re quested Visits Authorized [id number] Closed 09/11/2024 05/02/2025 12 12 Encounter Details Date Type Department Care Team (Late st Contact Info) Description 09/13/2024 1:00 PM CDT Infusion Department of Infusion Therapy in [place], [place] [address] [place] [phone] Edgar Montgomery M.B.B.S., M.S. [address] [place] [phone] Transplant Liver (HCC) (Primary Dx); Rejection Graft [...] in about a year or so. [facility] [employer] Answer Date Recorded In the past 12 months has [facility] [employer], gas, oil, or water [employer] threatened to shut off services in your [...] often do you attend chur ch or rastafarian services? Patient declined 02/10/2022 Do you belong [...] Answer Date Recorded PHQ-2 Score 0 08/11/2024 [facility] of Occupat ional Health - [...] your living situation today? I have a [facility] place to live 09/09/2024 Education Answer Date Recorded What is the highest level of school you have completed or the highest degree you have received? Associate degree: occupational, technical, or vocational program 07/16/2021 Comments No Sex and Gender Information Value Date Recorded Sex Assigned at Female 04/12/2021 7:39 PM QUALITY MANAGEMENT NURSE Legal Sex Female 7:53 PM QUALITY MANAGEMENT NURSE Gender Identity Female 04/12/2021 7:39 PM QUALITY MANAGEMENT NURSE Sexual Orientation Straight 04/12/2021 7: 39 PM QUALITY MANAGEMENT NURSE documented as of this encounter Last [...] with Ativan prior to PICC placement in [facility]. Per provider, order placed for Ativan [...] was admitted. Ana Redmond CNP came to [facility] to assess patient. Patient declined any further interventionswhen offered and declined to continue Thymoglobulin. Per Ana Redmond [facility] Thymoglobulin. documented in this [...] 11:00 AM CDT Appointment Department of Radiology, [facility], in [place], [place] [address] [place] [address] Noreen Ansari P.A.-C., M.S. [address] [place] [phone] Jesus Figueroa M.D. [address] [place] [phone] 09/14/2024 4:00 PM CDT Telemedicine Division of Pulmonary Medicine in [place], [place] [address] [place] [phone] Ben Dickson APRN, C.N.P. [address] [place] [phone] 09/15/2024 8:00 AM CDT Lab Department of Laboratory Medicine and Pathology, [facility] in [place], [place] [address] [place] [phone] Edgar Montgomery M.B.B.S., M.S. [address] [place] [phone] 09/15/2024 10:00 AM CDT Comprehensive Visit [facility] for Transplantation and Clinical Regeneration in [place], [place] [address] [place] [address] Edgar Montgomery M.B.B.S., M.S. [address] [place] [phone] Miriam Strickland M.D. [address] [place] [phone] 09/15/2024 11:00 AM CDT Office Visit [facility] for Transplantation and Clinical Regeneration in [place], [place] [address] [place] [phone] Edgar Montgomery M.B.B.S., M.S. [address] [place] [phone] Discharge Disposition: Home or Self Care 09/15/2024 1:45 PM CDT Infusion Department of Infusion Therapy in [place], [place] [address] [place] [phone] Juan Pete M.D. [address] [place] [phone] 09/18/2024 2:15 PM CDT Hospital Encounter Department of Radiology, [facility] in [place], [place] [address] [place] [address] Edgar Montgomery M.B.B.S., M.S. [address] [place] [phone] 09/20/2024 3:00 PM CDT Comprehensive Visit [facility] for Transplantation and Clinical Regeneration in [place], [place] [address] [place] [phone] Catia Quintana APRN, C.N.P. [address] [place] [phone] 10/03/2024 9:00 AM CDT [facility] [place], [place] [address] [place] [address] Marisabel Carpenter APRN, C.N.P., D.N.P. [address] [place] [phone] 10/05/2024 12:00 PM CDT Appointment Division of Pulmonary Medicine in [place], [place] [address] [place] [phone] Edgar Montgomery M.B.B.S., M.S. [address] [place] [phone] 10/10/2024 7:50 AM CDT Lab Department of Laboratory Medicine and Pathology, [place], [place] [address] [place] [address] Marisabel Carpenter APRN, C.N.P., D.N.P. [address] [place] [phone] 10/10/2024 8:00 AM CDT Lab Department of Laboratory Medicine and Pathology, [place], [place] [address] [place] [address] Marisabel Carpenter APRN, C.N.P., D.N.P. [address] [place] [phone] 10/10/2024 8:30 AM CDT Nurse Only Ramirez Nguyen [place] for Transplantation and Clinical Regeneration in [place], [place] [address] [place] [phone] Marisabel Carpenter APRN, C.N.P., D.N.P. [address] [place] [phone] 10/10/2024 9:20 AM CDT Appointment [place], [place] [address] [place] [address] Marisabel Carpenter APRN, C.N.P., D.N.P. [address] [place] [phone] 10/10/2024 9:45 AM CDT Appointment Department of Laboratory Medicine and Pathology, [facility] in [place], [place] [address] [place] [address] Marisabel Carpenter APRN, C.N.P., D.N.P. [address] [place] [phone] 10/10/2024 1:30 PM CDT Appointment Department of Radiology, [facility] in [place], [place] [address] [place] [address] Marisabel Carpenter APRN, C.N.PSuma, D.N.P. [address] [place] [phone] 10/10/2024 2:45 PM CDT Appointment Department of Radiology, [facility] in [place], [place] [address] [place] [address] Marisabel Carpenter APRN, C.N.P., D.N.P. [address] [place] [phone] 10/11/2024 8:00 AM CDT [facility] in [place], [place] [address] [place] [address] Marisabel Carpenter APRN, C.N.P., D.N.P. [address] [place] [phone] 10/11/2024 11:00 AM CDT Comprehensive Visit [facility] for Transplantation and Clinical Regeneration in [place], [place] [address] [place] [address] Sree Devlin M.D. [address] [place] [phone] 10/11/2024 1:00 PM CDT Comprehensive Visit Department of Otorhinolaryngology in [place], [place] [address] [place] [phone] Randal Urbano P.A.-C., M.S. [address] [place] [phone] 10/11/2024 2:00 PM CDT Office Visit [facility] for Transplantation and Clinical Regeneration in [place], [place] [address] [place] [phone] Hiro Murillo P.A.-C. [address] [place] [phone] 10/11/2024 4:00 PM CDT Comprehensive Visit Department of Dermatology in [place], [place] [address] [place] [phone] Parul Martinez M.D. [address] [place] [phone] 10/12/2024 8:00 AM CDT Telemedicine [facility] Transplantation and Clinical Regeneration in [place], [place] [address] [place] [phone] Ervin Mckeon D.O. [address] [place] [phone] 11/01/2024 2:15 PM CDT Appointment Division of Pulmonary Medicine in [place], [place] [address] [place] [phone] Edgar Montgomery M.B.BSumaS., M.S. [address] [place] [phone] documented as of this encounter Procedures Procedure [...] Complications: no apparent complications Noreen Ansari P.A.-C. MSumaSSuma PROCEDURE/MINOR SURGICAL ORDERABLES Final Result MMODAL NA [...] 68.55 mg = 1.5 mg/kg 45.7 kg [place] weight), intravenous, at 66.3 mL/hr, Administer over [...] End Date Ana Red MPAS, P.A.-C. [address] [facility] [place] [phone] PCP - General Internal Medicine 12/01/21 [facility] [place] lab 08/25/21 documented as of this encounter
--- OUTSIDE RECORDS SUMMARY | 2024-09-14 01:33 | XMS_ITS | Encounter Summary ---
Author Organization [facility] Address [address] [place] [address] Care Team Providers Care Machine Greaser Name Role Phone Ana Red P.A.-C. Primary Care Pro vider Reason for Visit * Reason Onset Date Comments Post Hospital Follow-up 09/11/2024 DC'd 08/31 @ 1752 Encounter Details Date Type Department Care Team (Latest Contact Info) Description 09/11/2024 Clinical Communication Department of Community Internal Medicine in [place] [address] [facility] [place] [phone] Salima Graham, RSumaN. Post Hospital Follow-up (DC'd 09/09/24 @ 1752) Social History Tobacco Use Types Packs/Day Years Used Date Smoking Tobacco: Former Cigarettes 1 - 10/12/2021 Passive Smoke Exposure: Never Smokeless Tobacco: Never Comments:Smoked cigarettes f rom age 18-30 about Alcohol Use Standard Drinks/Week Comments Never 0 (1 standard drink = 0.6 oz pure alcohol) Havent had any alcohol in about a year or so. [facility] Utilities Answer Date Recorded In [...] How often do you attend chur or uatsdin services? Patient declined 02/10/2022 Do [...] Answer Date Recorded PHQ-2 Score 0 08/11/2024 [facility] [place] of Occupat ional Health - Occupational Stress [...] your living situation today? I have a [facility] place to live 09/09/2024 Education Answer Date Recorded What is the highest level of school you have completed or the highest degree you have received? Associate degree: occupational, technical, or vocational program 07/16/2021 Comments No Sex and Gender Information Value Date Recorded Sex Assigned at Female 04/12/2021 7:39 PM PHOTOGRAPHY PROFESSOR Legal Sex Female 7:53 PM PHOTOGRAPHY PROFESSOR Gender Identity Female 04/12/2021 7:39 PM PHOTOGRAPHY PROFESSOR Sexual Orientation Straight 04/12/2021 7: 39 PM PHOTOGRAPHY PROFESSOR documented as of this encounter Plan of Treatment Upcoming Encounters Date Type Department Care Team (Latest Contact Info) Description 09/14/2024 11:00 AM CDT Appointment Department of Radiology, [facility], in [place], [place] [address] [place] [address] Noreen Ansari P.A.-C., M.S. [address] [place] [address] Jesus Figueroa M.D. [address] [place] [phone] 09/14/2024 4:00 PM CDT Telemedicine Division of Pulmonary Medicine in [place], [place] [address] [place] [address] Ben Dickson APRN, CSumaN.P. [address] [place] [phone] 09/15/2024 8:00 AM CDT Lab Department of Laboratory Medicine and Pathology, [facility], in [place], [place] [address] [place] [address] Edgar Montgomery M.B.B.S., M.S. [address] [place] [phone] 09/15/2024 10:00 AM CDT Comprehensive Visit [facility] for Transplantation and Clinical Regeneration in [place], [place] [address] [place] [address] Edgar Montgomery M.B.B.S., M.S. [address] [place] [phone] Miriam Strickland M.D. [address] [place] [address] 09/15/2024 11:00 AM CDT Office Visit [facility] for Transplantation and Clinical Regeneration in [place], [place] [address] [place] [address] Edgar Montgomery M.B.B.S., M.S. [address] [place] [phone] Discharge Disposition: Home or Self Care 09/15/2024 1:45 PM CDT Infusion Department of Infusion Therapy in [place], [place] [address] [place] [address] Juan Peet M.D. [address] [place] [phone] 09/18/2024 2:15 PM CDT Hospital Encounter Department of Radiology, [facility] in [place], [place] [address] [place] [address] Edgar Montgomery M.B.B.S., M.S. [address] [place] [phone] 09/20/2024 3:00 PM CDT Comprehensive Visit [facility] for Transplantation and Clinical Regeneration in [place], [place] [address] [place] [address] Catia Quintana APRN, C.N.P. [address] [place] [phone] 10/03/2024 9:00 AM CDT Appointment Department of Radiology, [facility] in [place], [place] [address] [place] [address] Marisabel Carpenter APRN, C.N.P., D.N.P. [address] [place] [phone] 10/05/2024 12:00 PM CDT Appointment Division of Pulmonary Medicine in [place], [place] [address] [place] [address] Edgar Montgomery M.B.B.S., M.S. [address] [place] [phone] 10/10/2024 7:50 AM CDT Lab Department of Laboratory Medicine and Pathology, [facility] in [place], [place] [address] [place] [address] Marisabel Carpenter APRN, C.N.P., D.N.P. [address] [place] [phone] 10/10/2024 8:00 AM CDT Lab Department of Laboratory Medicine and Pathology, [facility] in [place], [place] [address] [place] [address] Marisabel Carpenter APRN, C.N.PSuma, D.N.P. [address] [place] [phone] 10/10/2024 8:30 AM CDT Nurse Only [facility] in [place], [place] [address] [place] [address] Marisabel Carpenter APRN, C.N.P., D.N.P. [address] [place] [phone] 10/10/2024 9:20 AM CDT Appointment Department of Radiology, [facility] in [place], [place] [address] [place] [address] Marisabel Carpenter APRN, C.N.P., D.N.P. [address] [place] [phone] 10/10/2024 9:45 AM CDT Appointment Department of Laboratory Medicine and Pathology, [facility] in [place], [place] [address] [place] [address] Marisabel Carpenter APRN C.N.PSuma, D.N.P. [address] [place] [address] 10/10/2024 1:30 PM CDT Appointment Department of Radiology, [facility] in [place], [place] [address] [place] [address] Marisabel Carpenter APRN C.N.PSuma, D.N.P. [address] [place] [phone] 10/10/2024 2:45 PM CDT Appointment Department of Radiology, [facility] in [place], [place] [address] [place] [address] Marisabel Carpenter APRN, C.N.PSuma, D.N.P. [address] [place] [phone] 10/11/2024 8:00 AM CDT Office Visit [facility] for Transplantation and Clinical Regeneration in [place], [place] [address] [place] [address] Marisabel Carpenter APRN, C.N.PSuma, D.N.P. [address] [place] [phone] 10/11/2024 11:00 AM CDT Comprehensive Visit [facility] for Transplantation and Clinical Regeneration in [place], [place] [address] [place] [address] Sree Devlin M.D. [address] [place] [phone] 10/11/2024 1:00 PM CDT Comprehensive Visit Department of Otorhinolaryngology in [place], [place] [address] [place] [address] Randal Urbano P.A.-C., M.S. [address] [place] [phone] 10/11/2024 2:00 PM CDT Office Visit [facility] for Transplantation and Clinical Regeneration in [place], [place] [address] [place] [address] Hiro Murillo P.A.-C. [address] [place] [phone] 10/11/2024 4:00 PM CDT Comprehensive Visit Department of Dermatology in [place], [place] [address] [place] [phone] Parul Martinez M.D. [address] [place] [phone] 10/12/2024 8:00 AM CDT Telemedicine [facility] Transplantation and Clinical Regeneration in [place], [place] [address] [place] [address] Ervin Mckeon, [place] [address] [place] [phone] 11/01/2024 2:15 PM CDT Appointment Division of Pulmonary Medicine in [place], [place] [address] [place] [phone] Edgar Montgomery M.B.B.S., M.S. [address] [place] [phone] documented as of this encounter Visit Diagnoses Not on filedocumented in this encounter Additional Health Concerns Infection Onset Date Last Indicated Resolved Time Protective Environment 10/10/2022 10/10/2022 Assessment Noted Time PHQ-9 Depression Total Score: 4 08/12/19 25 3:31 PM CDT documented as of this encounter Care Teams Machine Greaser Relationship Specialty Start Date End Date Ana Red MPAS, P.A.-C. [address] [facility] [phone] PCP - General Internal Medicine 12/01/21 [facility] [place] [facility] 08/25/21 documented as of this encounter
--- OUTSIDE RECORDS SUMMARY | 2024-09-14 01:33 | XMS_ITS | Encounter Summary ---
Author Organization [facility] Address [address] [place] [address] Care Team Providers Care Company Secretary Name Role Phone Ana Red P.A.-C. Primary Care Pro vider Encounter Details Date Type Department Care Team (Late st Contact Info) Description 09/11/2024 11:30 PM CDT Ancillary Procedure Department of Emergency Medicine Arrived Social History Tobacco Use Types Packs/Day Years Used Date Smoking Tobacco: Former Cigarettes 1 - 10/12/2021 Passive Smoke Exposure: Never Smokeless Tobacco: Never Comments:Smoked cigarettes f rom age 18-30 about Alcohol Use Standard Drinks/Week Comments Never 0 (1 standard drink = 0.6 oz pure alcohol) Havent had any alcohol in about a year or so. [facility] Utilities Answer Date Recorded In the past 12 months has [employer], gas, oil, or water [employer] threatened to shut off services in your [...] How often do you attend chur or yazdanism services? Patient declined 02/10/2022 Do [...] Answer Date Recorded PHQ-2 Score 0 08/11/2024 [facility] - [...] your living situation today? I have a [facility] place to live 09/09/2024 Education Answer Date Recorded What is the highest level of school you have completed or the highest degree you have received? Associate degree: occupational, technical, or vocational program 07/16/2021 Comments No Sex and Gender Information Value Date Recorded Sex Assigned at Female 04/12/2021 7:39 PM EXCELLENCE COACH Legal Sex Female 7:53 PM EXCELLENCE COACH Gender Identity Female 04/12/2021 7:39 PM EXCELLENCE COACH Sexual Orientation Straight 04/12/2021 7: 39 PM EXCELLENCE COACH documented as of this encounter Plan of Treatment Upcoming Encounters Date Type Department Care Team (Latest Contact Info) Description 09/14/2024 11:00 AM CDT Appointment Department of Radiology, [facility], in [place], [place] [address] [place] [phone] Noreen Ansari, Christo.-Katrin., M.S. 200 [place] [phone] Jesus Figueroa M.D. 200 [place] [phone] 09/14/2024 4:00 PM CDT Telemedicine Division of Pulmonary Medicine in [place], [place] [address] [place] [phone] Ben Dickson APRN, C.N.P. [address] [place] [phone] 09/15/2024 8:00 AM CDT Lab Department of Laboratory Medicine and Pathology, [facility] in [place], [place] [address] [place] [phone] Edgar Montgomery M.Karan.B.S., M.S. [address] [place] [phone] 09/15/2024 10:00 AM CDT [facility] in [place], [place] [address] [place] [phone] Edgar Montgomery M.B.B.S., M.S. [address] [place] [phone] Miriam Strickland M.D. [address] [place] [phone] 09/15/2024 11:00 AM CDT Office Visit [facility] for Transplantation and Clinical Regeneration in [place], [place] [address] [place] [phone] Edgar Montgomery M.B.B.S., M.S. [address] [place] [phone] Discharge Disposition: Home or Self Care 09/15/2024 1:45 PM CDT Infusion Department of Infusion Therapy in [place], [place] [address] [place] [address] Juan Pete M.D. [address] [place] [address] 09/18/2024 2:15 PM CDT Hospital Encounter Department of Radiology, [facility], in [place], [place] [address] [place] [address] Edgar Montgomery M.B.B.S., M.S. [address] [place] [address] 09/20/2024 3:00 PM CDT Comprehensive Visit [facility] in [place], [place] [address] [place] [address] Catia Quintana APRN, C.N.P. [address] [place] [phone] 10/03/2024 9:00 AM CDT Appointment Department of Radiology, [facility], in [place], [place] [address] [place] [address] Marisabel Carpenter APRN, C.N.P., D.N.P. [address] [place] [phone] 10/05/2024 12:00 PM CDT Appointment Division of Pulmonary Medicine in [place], [place] [address] [place] [address] Edgar Montgomery M.B.B.S., M.S. [address] [place] [phone] 10/10/2024 7:50 AM CDT Lab Department of Laboratory Medicine and Pathology, [facility], in [place], [place] [address] [place] [address] Marisabel Carpenter APRN, C.N.P., D.N.P. [address] [place] [phone] 10/10/2024 8:00 AM CDT Lab Department of Laboratory Medicine and Pathology, [place], [place] [address] [place] [address] Marisabel Carpenter APRN, C.N.P., D.N.P. [address] [place] [phone] 10/10/2024 8:30 AM CDT Nurse Only [facility] in [place], [place] [address] [place] [address] Marisabel Carpenter APRN, C.N.PSuma, D.N.P. [address] [place] [phone] 10/10/2024 9:20 AM CDT Appointment Department of Radiology, [facility] in [place], [place] [address] [place] [address] Marisabel Carpenter APRN, C.N.P., D.N.P. [address] [place] [phone] 10/10/2024 9:45 AM CDT Appointment Department [place] [address] [place] [address] Marisabel Carpenter APRN, C.N.P., D.N.P. [address] [place] [phone] 10/10/2024 1:30 PM CDT Appointment Department of Radiology, [facility], in [place], [place] [address] [place] [address] Marisabel Carpenter APRN C.N.PSuma, D.N.P. [address] [place] [phone] 10/10/2024 2:45 PM CDT Appointment Department of Radiology, [facility], in [place], [place] [address] [place] [address] Marisabel Carpenter APRN C.N.PSuma, D.N.P. [address] [place] [phone] 10/11/2024 8:00 AM CDT Office Visit [facility] in [place], [place] [address] [place] [address] Marisabel Carpenter APRN, C.N.P., D.N.P. [address] [place] [phone] 10/11/2024 11:00 AM CDT Comprehensive Visit [facility] in [place], [place] [address] [place] [address] Sree Devlin M.D. [address] [place] [phone] 10/11/2024 1:00 PM CDT Comprehensive Visit Department of Otorhinolaryngology in [place], [place] [address] [place] [address] Randal Urbano P.A.-C., M.S. [address] [place] [phone] 10/11/2024 2:00 PM CDT Office Visit [facility] [place] Transplantation and Clinical Regeneration in [place], [place] [address] [place] [address] Hiro Murillo P.A.-C. [address] [place] [phone] 10/11/2024 4:00 PM CDT Comprehensive Visit Department of Dermatology in [place], [place] [address] [place] [phone] Parul Martinez M.D. [address] [place] [phone] 10/12/2024 8:00 AM CDT Telemedicine [facility] in [place], [place] [address] [place] [phone] Ervin Mckeon D.O. [address] [place] [phone] 11/01/2024 2:15 PM CDT Appointment Division of Pulmonary Medicine in [place], [place] [address] [place] [phone] Edgar Montgomery M.B.B.S., M.S. [address] [place] [phone] documented as of this encounter Procedures Procedure [...] PROCE DURES Final Result Performing Organization Address [facility]/State/ZIP Co de Phone Number IIMS NA documented in this encounter Visit Diagnoses Not on filedocumented in this encounter Additional Health Concerns Infection Onset Date Last Indicated Resolved Time Protective Environment 10/10/2022 10/10/2022 Assessment Noted Time PHQ-9 Depression Total Score: 4 08/12/19 25 3:31 PM CDT documented as of this encounter Care Teams Company Secretary Relationship Specialty Start Date End Date Ana Red MPAS, P.A.-C. [address] [place] [phone] PCP - General Internal Medicine 12/01/21 [facility] [place] [facility] 08/25/21 documented as of this encounter
--- OUTSIDE RECORDS SUMMARY | 2024-09-14 01:33 | XMS_ITS | Encounter Summary ---
Author Organization [facility] Address [address] [place] [address] Care Team Providers Care Plastic Mixer Name Role Phone Ana Red P.A.-C. Primary Care Pro vider Encounter Details Date Type Department Care Team (Latest Contact Info) Description 09/11/2024 Clinical Communication Ramirez Navarrete [facility] for Transplantation and Clinical Regeneration in [place], [place] [address] [place] [phone] Michelle Luz M.D., M.S. [address] [place] [phone] Social History Tobacco Use Types Packs/Day Years Used Date Smoking Tobacco: Former Cigarettes 1 - 10/12/2021 Passive Smoke Exposure: Never Smokeless Tobacco: Never Comments:Smoked cigarettes f rom age 18-30 about Alcohol Use Standard Drinks/Week Comments Never 0 (1 standard drink = 0.6 oz pure alcohol) Havent had any alcohol in about a year or so. [facility] Utilities Answer Date Recorded In the past 12 months has e [employer], gas, oil, or water [employer] threatened to shut off services in your [...] How often do you attend chur or temple services? Patient declined 02/10/2022 Do you belong to any clubs o r organizations such as gnosticism groups, unions, fraternal [...] Answer Date Recorded PHQ-2 Score 0 08/11/2024 [facility] of Occupat ional Health - Occupational Stress [...] your living situation today? I have a [facility] place to live 09/09/2024 Education Answer Date Recorded What is the highest level of school you have completed or the highest degree you have received? Associate degree: occupational, technical, or vocational program 07/16/2021 Comments No Sex and Gender Information Value Date Recorded Sex Assigned at Female 04/12/2021 7:39 PM ROUGH PATCHER Legal Sex Female 7:53 PM ROUGH PATCHER Gender Identity Female 04/12/2021 7:39 PM ROUGH PATCHER Sexual Orientation Straight 04/12/2021 7: 39 PM ROUGH PATCHER documented as of this encounter Miscellaneous Notes * Telephone Encounter - Michelle Luz M.D., M.S. - 09/11/2024 3:28 PM CDT I was contacted by the [facility] RN regarding Ms. Brunson. In brief, Ms. 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 She received 3 days of Thymoglobulin protocol, and presented today to the outpatient ITC for day 5. I was notified by the ITC RN regarding right arm redness and tenderness at the site of her previousIV. It is possible that the previous IV infiltrated during her previous infusions. She does report some symptomatic chills over the past few days. Temperature in the ITC is 37.3. She has been elevating the arm however with ongoing redness and swelling. Photos of the arm were taken (uploaded in [employer]) and borders will be outlined. She denies allergic type symptoms, such as lip edema, shortness of breath, or other diffuse rash. Currently, another IV has been accessed on her left arm. I discussed with the RN that we will arrange for labs and RUE Duplex US to be done. In the absence of allergic reaction, it would be reasonable to proceed with the scheduled Thymoglobulin dose. She is scheduled for a clinic visit later this week and we can try to move this up pending initial labs and workup. documented in this encounter Plan of Treatment Upcoming Encounters Date Type Department Care Team (Latest Contact Info) Description 09/14/2024 11:00 AM CDT Appointment Department of Radiology, [facility], in [place], [place] [address] [place] [phone] Noreen Ansari P.A.-C., M.S. [address] [place] [phone] Jesus Figueroa M.D. [address] [place] [phone] 09/14/2024 4:00 PM CDT Telemedicine Division of Pulmonary Medicine in [place], [place] [address] [place] [phone] Randolph, Ben Russo APRN, C.N.P. [address] [place] [address] 09/15/2024 8:00 AM CDT Lab Department of Laboratory Medicine and Pathology, [facility], in [place], [place] [address] [place] [address] Edgar Montgomery M.B.B.S., M.S. [address] [place] [phone] 09/15/2024 10:00 AM CDT Comprehensive Visit [facility] Trans[facility] and Clinical Regeneration in [place], [place] [address] [place] [address] Edgar Montgomery M.B.B.S., M.S. [address] [place] [phone] Miriam Strickland M.D. [address] [place] [phone] 09/15/2024 11:00 AM CDT Office Visit [facility] for Transplantation and Clinical Regeneration in [place], [place] [address] [place] [address] Edgar Montgomery M.B.B.S., M.S. [address] [place] [phone] Discharge Disposition: Home or Self Care 09/15/2024 1:45 PM CDT Infusion Department of Infusion Therapy in [place], [place] [address] [place] [address] Juan Pete M.D. [address] [place] [phone] 09/18/2024 2:15 PM CDT Hospital Encounter Department of Radiology, [facility], in [place], [place] [address] [place] [address] Edgar Montgomery M.B.B.S., M.S. [address] [place] [phone] 09/20/2024 3:00 PM CDT Comprehensive Visit [facility] Clinical Regeneration in [place], [place] [address] [place] [address] Catia Quintana APRN, C.N.P. [address] [place] [phone] 10/03/2024 9:00 AM CDT Appointment Department of Radiology, [facility], in [place], [place] [address] [place] [address] Marisabel Carpenter APRN, C.N.P., D.N.P. [address] [place] [phone] 10/05/2024 12:00 PM CDT Appointment Division of Pulmonary Medicine in [place], [place] [address] [place] [address] Edgar Montgomery M.B.B.S., M.S. [address] [place] [phone] 10/10/2024 7:50 AM CDT Lab Department of Laboratory Medicine and Pathology, [facility], in [place], [place] [address] [place] [address] Marisabel Carpenter APRN, C.N.P., D.N.P. [address] [place] [phone] 10/10/2024 8:00 AM CDT Lab Department of Laboratory Medicine and Pathology, [facility] in [place], [place] [address] [place] [address] Marisabel Carpenter APRN, C.N.PSuma, D.N.P. [address] [place] [phone] 10/10/2024 8:30 AM CDT Nurse Only [facility] in [place], [place] [address] [place] [address] Marisabel Carpenter APRN, Katrin.N.PSuma, D.N.P. [address] [place] [phone] 10/10/2024 9:20 AM CDT Appointment Department of Radiology, [facility] in [place], [place] [address] [place] [address] Marisabel Carpenter APRN, Katrin.N.PSuma, D.N.P. [address] [place] [phone] 10/10/2024 9:45 AM CDT Appointment Department of Laboratory Medicine and Pathology, [facility] in [place], [place] [address] [place] [address] Marisabel Carpenter APRN, C.N.P., D.N.P. [address] [place] [phone] 10/10/2024 1:30 PM CDT Appointment Department of Radiology, [facility] in [place], [place] [address] [place] [address] Marisabel Carpenter APRN, C.N.P., D.N.P. [address] [place] [phone] 10/10/2024 2:45 PM CDT Appointment Department of Radiology, [facility], in [place], [place] [address] [place] [address] Marisabel Carpenter APRN C.N.PSuma, D.N.P. [address] [place] [phone] 10/11/2024 8:00 AM CDT [facility] in [place], [place] [address] [place] [address] Marisabel Carpenter APRN, C.N.P., D.N.P. [address] [place] [phone] 10/11/2024 11:00 AM CDT Comprehensive Visit [facility]plantation and Clinical Regeneration in [place], [place] [address] [place] [address] Sree Devlin M.D. [address] [place] [phone] 10/11/2024 1:00 PM CDT Comprehensive Visit Department of Otorhinolaryngology in [place], [place] [address] [place] [phone] Randal Urbano, P.A.-C., M.S. [address] [place] [phone] 10/11/2024 2:00 PM CDT Office Visit [facility] Transplantation and Clinical Regeneration in [place], [place] [address] [place] [address] Hiro Murillo P.A.-C. [address] [place] [phone] 10/11/2024 4:00 PM CDT Comprehensive Visit Department of Dermatology in [place], [place] [address] [place] [phone] Parul Martinez M.D. [address] [place] [phone] 10/12/2024 8:00 AM CDT Telemedicine [facility] for Transplantation and Clinical Regeneration in [place], [place] [address] [place] [phone] Ervin Mckeon D.O. [address] [place] [phone] 11/01/2024 2:15 PM CDT Appointment Division of Pulmonary Medicine in [place], [place] [address] [place] [phone] Edgar Montgomery M.B.B.S., M.S. [address] [place] [phone] Pending Results Name Type Priority Associated Diagnoses Date /Time Bacteria / Ines Culture, Blood #1 Microbiology Routine Swelling Arm Rejection Liver Transplant (HCC) 09/11/2024 4:45 PM CDT Bacteria / Ines Culture, Blood #2 Microbiology Routine Swelling Arm Rejection Liver Transplant ([facility] 09/11/2024 4:48 PM CDT documented as of this encounter Results * (ABNORMAL) Hepatic Function Panel (09/11/2024 4:47 [...] M.S. LAB BLOOD ADD-ON Final Res ult [place] [address] [place] [address], [facility] [place] [address] * (ABNORMAL) Basic Metabolic Panel (09/11/2024 4:47 [...] M.S. LAB BLOOD ADD-ON Final Res ult [facility] [place] [address] [place] [address], [facility] [address] [place] [address] * (ABNORMAL) CBC with Differential, Blood (09/11/2024 [...] M.S. LAB BLOOD ADD-ON Final Res ult [facility] [place] [address] [place] [address], [place] [facility] [address] [place] [address] [facility] [address] [place] [address] documented in this encounter Visit Diagnoses Diagnosis Swelling Arm- Primary Rejection Liver Transplant (HCC) documented in this encounter Additional Health Concerns Infection Onset Date Last Indicated Resolved Time Protective Environment 10/10/2022 10/10/2022 Assessment Noted Time PHQ-9 Depression Total Score: 4 08/12/19 25 3:31 PM CDT documented as of this encounter Care Teams Plastic Mixer Relationship Specialty Start Date End Date Ana Red MPAS, P.A.-C. [address] [place] [phone] PCP - General Internal Medicine 12/01/21 [facility] [place] [facility] 08/25/21 documented as of this encounter
--- OUTSIDE RECORDS SUMMARY | 2024-09-14 01:33 | XMS_ITS | Encounter Summary ---
Author Organization [facility] Address [address] [place] [address] Care Team Providers Care Nursing Education Specialist Name Role Phone Ana Red P.A.-C. Primary Care Pro vider Reason for Visit * Reason Onset Date Comments Medication Problem 09/09/2024 Encounter Details Date Type Department Care Team (Latest Contact Info) Description 09/09/2024 Clinical Communication [facility] [address] [place] [phone] Jaiden May, Pharm.D., R.Ph. [address] [place] [phone] Medication Problem Social History Tobacco Use Types Packs/Day Years Used Date Smoking Tobacco: Former Cigarettes 1 - 10/12/2021 Passive Smoke Exposure: Never Smokeless Tobacco: Never Comments:Smoked cigarettes f rom age 18-30 about Alcohol Use Standard Drinks/Week Comments Never 0 (1 standard drink = 0.6 oz pure alcohol) Havent had any alcohol in about a year or so. [facility] Utilities Answer Date Recorded In [...] How often do you attend chur or church services? Patient declined 02/10/2022 Do [...] Answer Date Recorded PHQ-2 Score 0 08/11/2024 [facility] of Occupat ional Health - Occupational Stress [...] [facility] 09/09/2024 Education Answer Date Recorded What is the highest level of school you have completed or the highest degree you have received? Associate degree: occupational, technical, or vocational program 07/16/2021 Comments No Sex and Gender Information Value Date Recorded Sex Assigned at Female 04/12/2021 7:39 PM PRECISION JIG GRINDER Legal Sex Female 7:53 PM PRECISION JIG GRINDER Gender Identity Female 04/12/2021 7:39 PM PRECISION JIG GRINDER Sexual Orientation Straight 04/12/2021 7: 39 PM PRECISION JIG GRINDER documented as of this encounter Plan of Treatment Upcoming Encounters Date Type Department Care Team (Latest Contact Info) Description 09/14/2024 11:00 AM CDT Appointment Department of Radiology, [facility], in [place], [place] [address] [place] [address] Noreen Ansari P.A.-C., M.S. [address] [place] [phone] Jesus Figueroa M.D. [address] [place] [phone] 09/14/2024 4:00 PM CDT Telemedicine Division of Pulmonary Medicine in [place], [place] [address] [place] [address] Ben Dickson APRN, CSumaN.P. [address] [place] [phone] 09/15/2024 8:00 AM CDT Lab Department of Laboratory Medicine and Pathology, [facility], in [place], [place] [address] [place] [address] Edgar Montgomery M.B.B.S., M.S. [address] [place] [phone] 09/15/2024 10:00 AM CDT Comprehensive Visit [facility] in [place], [place] [address] [place] [address] Edgar Montgomery M.B.B.S., M.S. [address] [place] [phone] Miriam Strickland M.D. [address] [place] [phone] 09/15/2024 11:00 AM CDT Office Visit [facility] in [place], [place] [address] [place] [address] Edgar Montgomery M.B.B.S., M.S. [address] [place] [phone] Discharge Disposition: Home or Self Care 09/15/2024 1:45 PM CDT Infusion Department of Infusion Therapy in [place], [place] [address] [place] [address] Juan Pete M.D. [address] [place] [phone] 09/18/2024 2:15 PM CDT Hospital Encounter Department of Radiology, [facility] in [place], [place] [address] [place] [address] Edgar Montgomery M.B.B.S., M.S. [address] [place] [phone] 09/20/2024 3:00 PM CDT Comprehensive Visit [facility] in [place], [place] [address] [place] [phone] Catia Quintana APRN, C.N.P. [address] [place] [phone] 10/03/2024 9:00 AM CDT Appointment Department of Radiology, [facility], in [place], [place] [address] [place] [phone] Marisabel Carpenter APRN, C.N.P., D.N.P. [address] [place] [phone] 10/05/2024 12:00 PM CDT Appointment Division of Pulmonary Medicine in [place], [place] [address] [place] [phone] Edgar Montgomery M.B.B.S., M.S. [address] [place] [phone] 10/10/2024 7:50 AM CDT Lab Department of Laboratory Medicine and Pathology, [facility] in [place], [place] [address] [place] [address] Marisabel Carpenter APRN, C.N.P., D.N.P. [address] [place] [phone] 10/10/2024 8:00 AM CDT Lab Department of Laboratory Medicine and Pathology, [facility] in [place], [place] [address] [place] [address] Marisabel Carpenter APRN, C.N.P., D.N.P. [address] [place] [phone] 10/10/2024 8:30 AM CDT Nurse Only Ramirez diaz [facility] for Trans[facility] Clinical Regeneration in [place], [place] [address] [place] [address] Marisabel Carpenter APRN, C.N.P., D.N.P. [address] [place] [phone] 10/10/2024 9:20 AM CDT Appointment Department of Radiology, [facility] in [place], [place] [address] [place] [address] Marisabel Carpenter APRN, C.N.P., D.N.P. [address] [place] [phone] 10/10/2024 9:45 AM CDT Appointment Department of Laboratory Medicine and Pathology, [facility] in [place], [place] [address] [place] [address] Marisabel Carpenter APRN, C.N.P., D.N.P. [address] [place] [address] 10/10/2024 1:30 PM CDT Appointment Department of Radiology, [facility] in [place], [place] [address] [place] [address] Marisabel Carpenter APRN, C.N.PSuma, D.N.P. [address] [place] [phone] 10/10/2024 2:45 PM CDT Appointment Department of Radiology, [facility], in [place], [place] [address] [place] [address] Marisabel Carpenter APRN, C.N.Frances, D.N.P. [address] [place] [phone] 10/11/2024 8:00 AM CDT Office Visit [facility] in [place], [place] [address] [place] [address] Marisabel Carpenter APRN C.N.PSuma, D.N.P. [address] [place] [phone] 10/11/2024 11:00 AM CDT Comprehensive Visit [facility] in [place], [place] [address] [place] [address] Sree Devlin M.D. [address] [place] [address] 10/11/2024 1:00 PM CDT Comprehensive Visit Department of Otorhinolaryngology in [place], [place] [address] [place] [address] Randal Urbano P.A.Jordan., M.S. [address] [place] [address] 10/11/2024 2:00 PM CDT Office Visit [facility] Transplantation and Clinical Regeneration in [place], [place] [address] [place] [address] Hiro Murillo P.A.-C. [address] [place] [address] 10/11/2024 4:00 PM CDT Comprehensive Visit Department of Dermatology in [place], [place] [address] [place] [phone] Parlu Martinez M.D. [address] [place] [address] 10/12/2024 8:00 AM CDT Telemedicine [facility] Transplantation and Clinical Regeneration in [place], [place] [address] [place] [phone] Ervin Mckeon D.O. [address] [place] [phone] 11/01/2024 2:15 PM CDT Appointment Division of Pulmonary Medicine in [address] [phone] Edgar Montgomery M.B.BSumaS., M.S. [address] [place] [phone] documented as of this encounter Visit Diagnoses Not on filedocumented in this encounter Additional Health Concerns Infection Onset Date Last Indicated Resolved Time Protective Environment 10/10/2022 10/10/2022 Assessment Noted Time PHQ-9 Depression Total Score: 4 08/12/19 25 3:31 PM CDT documented as of this encounter Care Teams Nursing Education Specialist Relationship Specialty Start Date End Date Ana Red MPAS P.A.-C. [address] [facility] [place] Chua [phone] PCP - General Internal Medicine 12/01/21 [facility] [place] [facility] 08/25/21 documented as of this encounter
--- OUTSIDE RECORDS SUMMARY | 2024-09-14 01:34 | XMS_ITS | Encounter Summary ---
Author Organization [facility] Address [address] [place] [address] Care Team Providers Care Power Tong Operator Name Role Phone Ana Red P.A.-C. Primary Care Pro vider Encounter Details Date Type Department Care Team (Late st Contact Info) Description 09/11/2024 Documentation [facility] for Transplantation and Clinical Regeneration in [place], [place] [address] [place] [phone] Elsie Salcedo P.A.-C., M.S. [address] [place] [phone] Social History Tobacco Use Types Packs/Day Years [...] Answer Date Recorded PHQ-2 Score 0 08/11/2024 [facility] [place] of Occupat ional Health - Occupational Stress [...] living situation today? I have a [facility] place to live 09/09/2024 Education Answer Date Recorded What is the highest level of school you have completed or the highest degree you have received? Associate degree: occupational, technical, or vocational program 07/16/2021 Comments No Sex and Gender Information Value Date Recorded Sex Assigned at Female 04/12/2021 7:39 PM PUBLICATIONS INSPECTOR Legal Sex Female 7:53 PM PUBLICATIONS INSPECTOR Gender Identity Female 04/12/2021 7:39 PM PUBLICATIONS INSPECTOR Sexual Orientation Straight 04/12/2021 7: 39 PM PUBLICATIONS INSPECTOR documented as of this encounter Progress Notes * Elsie Salcedo P.A.-C., M.S. - 09/11/2024 9:58 PM CDT Catia Richtermabeldavonte was receiving her 4th dose of IV Thymoglobulin today. Her IV site was changed.New IV site was patent without any signs of inflammation or infection. Patient was having significant burning sensation with IV Thymoglobulin. She received IV Solu-Medrol 100 mg and then Thymoglobulin was restarted. Her symptoms did not improve. Patient could not complete her 4th dose of Thymoglobulin. Patient will receive her 4th dose of IV Thymoglobulin on 09/13. She is unable to come on 09/12.Her 5th dose will be scheduled for 09/15. I will touch base with her outpatient post liver entry level project coordinator, so that LTC team can coordinate the next doses and clinic appointments. documented in this encounter Plan of Treatment Upcoming Encounters Date Type Department Care Team (Latest Contact Info) Description 09/14/2024 11:00 AM CDT Appointment Department of Radiology, [facility] in [address] [phone] Noreen Ansari P.A.-C., M.S. [address] [place] [phone] Jesus Figueroa M.D. [address] [place] [phone] 09/14/2024 4:00 PM CDT Telemedicine Division of Pulmonary Medicine in [address] [phone] Ben Dickson APRN, C.N.P. [address] [place] [phone] 09/15/2024 8:00 AM CDT Lab Department of Laboratory Medicine and Pathology, [facility] in [address] [phone] Edgar Montgomery M.B.BSumaS., M.S. [address] [place] [phone] 09/15/2024 10:00 AM CDT [facility] in [place], [place] [address] [place] [address] Edgar Montgomery M.B.B.S., M.S. [address] [place] [phone] Miriam Strickland M.D. [address] [place] [phone] 09/15/2024 11:00 AM CDT Office Visit Ramirez Navarre[facility] Transplantation and Clinical Regeneration in [place], [place] [address] [place] [address] Edgar Montgomery M.B.B.S., M.S. [address] [place] [phone] Discharge Disposition: Home or Self Care 09/15/2024 1:45 PM CDT Infusion Department of Infusion Therapy in [place], [place] [address] [place] [address] Juan Pete M.D. [address] [place] [phone] 09/18/2024 2:15 PM CDT Hospital Encounter Department of Radiology, [facility], in [place], [place] [address] [place] [address] Edgar Montgomery M.B.B.S., M.S. [address] [place] [phone] 09/20/2024 3:00 PM CDT Comprehensive [facility] in [place], [place] [address] [place] [address] Catia Quintana APRN, C.N.P. [address] [place] [phone] 10/03/2024 9:00 AM CDT Appointment Department of Radiology, [facility] in [place], [place] [address] [place] [address] Marisabel Carpenter APRN, C.N.P., D.N.P. [address] [place] [phone] 10/05/2024 12:00 PM CDT Appointment Division of Pulmonary Medicine in [place], [place] [address] [place] [phone] Edgar Montgomery M.B.B.S., M.S. [address] [place] [phone] 10/10/2024 7:50 AM CDT Lab Department of Laboratory Medicine and Pathology, [facility] in [place], [place] [address] [place] [address] Marisabel Carpenter APRN, Katrin.N.P., D.N.P. [address] [place] [phone] 10/10/2024 8:00 AM CDT Lab Department of Laboratory Medicine and Pathology, [facility] in [place], [place] [address] [place] [address] Marisabel Carpenter APRN, C.N.P., D.N.P. [address] [place] [phone] 10/10/2024 8:30 AM CDT Nurse Only [facility] in [place], [place] [address] [place] [address] Marisabel Carpenter APRN, C.N.P., D.N.P. [address] [place] [phone] 10/10/2024 9:20 AM CDT Appointment Department of Radiology, [facility] in [place], [place] [address] [place] [address] Marisabel Carpneter APRN, C.N.P., D.N.P. [address] [place] [phone] 10/10/2024 9:45 AM CDT [facility] [place] [place] [address] [place] [address] Marisabel Carpenter APRN, Katrin.N.PSuma, D.N.P. [address] [place] [phone] 10/10/2024 1:30 PM CDT Appointment Department of Radiology, [facility] in [place], [place] [address] [place] [address] Marisabel Carpenter APRN, C.N.P., D.N.P. [address] [place] [phone] 10/10/2024 2:45 PM CDT Appointment Department of Radiology, [facility], in [place], [place] [address] [place] [address] Marisabel Carpenter APRN, C.N.P., D.N.P. [address] [place] [phone] 10/11/2024 8:00 AM CDT [facility] in [place], [place] [address] [place] [address] Marisabel Carpenter APRN, CSumaN.P., D.N.P. [address] [place] [phone] 10/11/2024 11:00 AM CDT Comprehensive Visit [facility] Transplantation and Clinical Regeneration in [place], [place] [address] [place] [address] Sree Devlin M.D. [address] [place] [phone] 10/11/2024 1:00 PM CDT Comprehensive Visit Department of Otorhinolaryngology in [place], [place] [address] [place] [phone] Randal Urbano, P.A.-C., M.S. [address] [place] [phone] 10/11/2024 2:00 PM CDT Office Visit [facility] Transplantation and Clinical Regeneration in [place], [place] [address] [place] [address] Hiro Murillo P.A.-C. [address] [place] [phone] 10/11/2024 4:00 PM CDT Comprehensive Visit Department of Dermatology in [place], [place] [address] [place] [phone] Parul Martinez M.D. [address] [place] [phone] 10/12/2024 8:00 AM CDT Telemedicine [facility] Transplantation and Clinical Regeneration in [place], [place] [address] [place] [address] Ervin Mckeon D.O. [address] [place] [address] 11/01/2024 2:15 PM CDT Appointment Division of Pulmonary Medicine in [place], [place] [address] [place] [address] Edgar Montgomery M.B.B.S., M.S. [address] [place] [address] documented as of this encounter Visit Diagnoses Not on filedocumented in this encounter Additional Health Concerns Infection Onset Date Last Indicated Resolved Time Protective Environment 10/10/2022 10/10/2022 Assessment Noted Time PHQ-9 Depression Total Score: 4 08/12/19 25 3:31 PM CDT documented as of this encounter Care Teams Power Tong Operator Relationship Specialty Start Date End Date Ana Red MPAS, P.A.-C. [address] [place] [phone] PCP - General Internal Medicine 12/01/21 [facility] [place] [facility] 08/25/21 documented as of this encounter
--- OUTSIDE RECORDS SUMMARY | 2024-09-14 01:34 | XMS_ITS | Encounter Summary ---
Author Organization [facility] Address [address] [place] [address] Care Team Providers Care Learning Support Specialist Name Role Phone Ana Red P.A.-C. Primary Care Pro vider Encounter Details Date Type Department Care Team (Late st Contact Info) Description 09/11/2024 Clinical Communication Department of Infusion Therapy in [place], [place] [address] [place] [phone] Aidee Pulido, Emma., LOUISA [address] [place] [phone] Social History Tobacco Use Types Packs/Day Years Used Date Smoking Tobacco: Former Cigarettes 1 - 10/12/2021 Passive Smoke Exposure: Never Smokeless Tobacco: Never Comments:Smoked cigarettes f rom age 18-30 about Alcohol Use Standard Drinks/Week Comments Never 0 (1 standard drink = 0.6 oz pure alcohol) Havent had any alcohol in about a year or so. [facility] Utilities Answer Date Recorded In the past 12 months has [employer], gas, oil, or water company threatened to [...] week 02/10/2022 How often do you attend [facility] or confucianist services? Patient declined 02/10/2022 Do [...] Answer Date Recorded PHQ-2 Score 0 08/11/2024 [facility] - Occupational [...] have a [facility] to [facility] 09/09/2024 Education Answer Date Recorded What is the highest level of school you have completed or the highest degree you have received? Associate degree: occupational, technical, or vocational program 07/16/2021 Comments No Sex and Gender Information Value Date Recorded Sex Assigned at Female 04/12/2021 7:39 PM AUTOMATIC PINSETTER ADJUSTER Legal Sex Female 7:53 PM AUTOMATIC PINSETTER ADJUSTER Gender Identity Female 04/12/2021 7:39 PM AUTOMATIC PINSETTER ADJUSTER Sexual Orientation Straight 04/12/2021 7: 39 PM AUTOMATIC PINSETTER ADJUSTER documented as of this encounter Miscellaneous Notes * Telephone Encounter - Evon Joseph, Pharm.D., R.Ph., [facility] - 09/12/2024 10:53 AM CDT It looks like she already has an infusion therapy plan in place (appropriate since she was supposedto get a dose on Wednesday (day 5). I have updated the orders to complete day 5 on Wednesday and day 7 on Wednesday, according to the protocol. documented in this encounter Plan of Treatment Upcoming Encounters Date Type Department Care Team (Latest Contact Info) Description 09/14/2024 11:00 AM CDT Appointment Department of Radiology, [facility], in [place], [place] [address] [place] [phone] Noreen Ansari P.A.-C., M.S. [address] [place] [phone] Jesus Figueroa M.D. [address] [place] [phone] 09/14/2024 4:00 PM CDT Telemedicine Division of Pulmonary Medicine in [place], [place] [address] [place] [phone] Ben Dickson, PHYSIOTHERAPIST'S ASSISTANT, C.N.P. [address] [place] [phone] 09/15/2024 8:00 AM CDT Lab Department of Laboratory Medicine and Pathology, [facility] [place], [place] [address] [place] [phone] Edgar Montgomery M.B.B.S., M.S. [address] [place] [phone] 09/15/2024 10:00 AM CDT Comprehensive Visit [facility] Clinical Reg[facility] in [place], [place] [address] [place] [address] Edgar Montgomery M.B.B.S., M.S. [address] [place] [phone] Miriam Strickland M.D. [address] [place] [address] 09/15/2024 11:00 AM CDT Office Visit Ramirez [facility] in [place], [place] [address] [place] [address] Edgar Montgomery M.B.B.S., M.S. [address] [place] [phone] Discharge Disposition: Home or Self Care 09/15/2024 1:45 PM CDT Infusion Department of Infusion Therapy in [place], [place] [address] [place] [address] Juan Pete M.D. [address] [place] [phone] 09/18/2024 2:15 PM CDT Hospital Encounter Department of Radiology, [facility] [place], [place] [address] [place] [address] Edgar Montgomery M.B.B.S., M.S. [address] [place] [phone] 09/20/2024 3:00 PM CDT [facility] in [place], [place] [address] [place] [address] Catia Quintana APRN, C.N.P. [address] [place] [phone] 10/03/2024 9:00 AM CDT Appointment Department of Radiology, [facility], in [place], [place] [address] [place] [address] Marisabel Carpenter APRN, C.N.P., D.N.P. [address] [place] [phone] 10/05/2024 12:00 PM CDT Appointment Division of Pulmonary Medicine in [place], [place] [address] [place] [address] Edgar Montgomery M.B.BSumaS., M.S. [address] [place] [phone] 10/10/2024 7:50 AM CDT Lab Department of Laboratory Medicine and Pathology, [place], [place] [address] [place] [address] Marisabel Carpenter APRN, C.N.PSuma, D.N.P. [address] [place] [phone] 10/10/2024 8:00 AM CDT Lab Department of Laboratory Medicine and Pathology, [facility] [place], [place] [address] [place] [address] Marisabel Carpenter APRN, C.N.PSuma, D.N.P. [address] [place] [phone] 10/10/2024 8:30 AM CDT Nurse Only Ramirez Nguyen [facility] in [place], [place] [address] [place] [address] Marisabel Carpenter APRN, C.N.P., D.N.P. [address] [place] [phone] 10/10/2024 9:20 AM CDT Appointment Department of Radiology, [facility] in [place], [place] [address] [place] [address] Marisabel Carpenter APRN, C.N.PSuma, D.N.P. [address] [place] [address] 10/10/2024 9:45 AM CDT Appointment Department of Laboratory Medicine and Pathology, [facility] in [place], [place] [address] [place] [address] Marisabel Carpenter APRN, C.N.PSuma, D.N.P. [address] [place] [address] 10/10/2024 1:30 PM CDT Appointment Department of Radiology, [facility] [place], [place] [address] [place] [address] Marisabel Carpenter APRN, C.N.PSuma, D.N.P. [address] [place] [phone] 10/10/2024 2:45 PM CDT Appointment Department of Radiology, [facility] in [place], [place] [address] [place] [address] Marisabel Carpenter APRN, Katrin.N.PSuma, D.N.P. [address] [place] [address] 10/11/2024 8:00 AM CDT [facility] in [place], [place] [address] [place] [address] Marisabel Carpenter APRN, Katrin.N.PSuma, D.N.P. [address] [place] [phone] 10/11/2024 11:00 AM CDT [facility] in [place], [place] [address] [place] [address] Sree Devlin M.D. [address] [place] [phone] 10/11/2024 1:00 PM CDT Comprehensive Visit Department of Otorhinolaryngology in [place], [place] [address] [place] [phone] Randal Urbano P.A.-C., M.S. [address] [place] [phone] 10/11/2024 2:00 PM CDT Office Visit Ramirez Llanes emily [facility] for Transplantation and Clinical Regeneration in [place], [place] [address] [place] [phone] Hiro Murillo P.A.-C. [address] [place] [phone] 10/11/2024 4:00 PM CDT Comprehensive Visit Department of Dermatology in [place], [place] [address] [place] [phone] Parul Martinez M.D. [address] [place] [phone] 10/12/2024 8:00 AM CDT Telemedicine [facility] for [facility] and Clinical Regeneration in [place], [place] [address] [place] [phone] Ervin Mckeon D.O. [address] [place] [phone] 11/01/2024 2:15 PM CDT Appointment Division of Pulmonary Medicine in [place], [place] [address] [place] [phone] Edgar Montgomery M.B.B.S., M.S. [address] [place] [phone] documented as of this encounter Visit Diagnoses Diagnosis Rejection Graft Acute- Primary documented in this encounter Additional Health Concerns Infection Onset Date Last Indicated Resolved Time Protective Environment 10/10/2022 10/10/2022 Assessment Noted Time PHQ-9 Depression Total Score: 4 08/12/19 25 3:31 PM CDT documented as of this encounter Care Teams Learning Support Specialist Relationship Specialty Start Date End Date Ana Red MPAS, P.A.-C. [address] [place] [address] PCP - General Internal Medicine 12/01/21 [facility] 08/25/21 documented as of this encounter
--- OUTSIDE RECORDS SUMMARY | 2024-09-14 01:34 | XMS_ITS ---
Author Organization [facility] Address [address] [place] [address] Care Team Providers Care Practice Office Associate Name Role Phone Ana Red P.A.-C. Primary Care Pro vider Transplant Episode Liver Recipient [facility] ([place], [place]) - [facility] Organ Received: Liver Transplanted on 10/10/2022 Marked as Active Follow-up on 10/10/2022 Liver CoordinatorSony Carty R.N. Fax: N/A Email: [email or web address] [employer] [place] [employer] [place] Organ Diagnosis Organ Primary Contributory Liver Alcoholic Cirrhosis Rejection History Noted Survival Rejection Treatment Biopsy Resolved 09/06/2024 1 year 10 months Rejection Liver Transplant (HCC) 08/25/2024 1 year 10 months Rejection Graft Acute Infection History Noted Survival Infection Treatment Organism [...] Fax Email Sony Carty R.N. Liver Coordinator [phone] N/A [email or web address] [email or web address] Vann M.D. Transplant Surgeon [phone] [email or web address] Tyrell Zheng M.[email or web address]. Referring Provider Transplant Wood Heel Flap Trimmer [phone] [email or web address] Post-Transplant Pre-Transplant Admitted: 10/10/2022 Referred: 08/14/2021 Transplanted: 10/10/2022 Evaluation began: 2 Discharged: 10/15/2022 Committee: 07/01/2022 Center waitlisted: 3 Appointments (08/15/2024 - 10/15/2024) When With Visit Type Description 08/22/2024 TXShanita - Jt Velazquez Appointment Cancele d (Provider: Template Change) 08/31/2024 Elizabeth Bahena Office Visit Transplant Li fred (HCC); Medication Therapy Senior Informatica Developer Not 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; Chronic Pain Syndrome 09/01/2024 TXShanita Office Visit Canceled (Andreas nt: Request) 09/01/2024 Jt Garcia Office Visit Canceled (Katrin winic: Request) 09/05/2024 LAB Blood Test Transplant Live r (HCC); Rejection Liver Transplant (HCC); Medication Therapy Alf Not 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; Elevated Liver Function Test 09/06/2024 LAB Lab Visit Rejection Liver Transplant (HCC) 09/06/2024 TXP - Elizabeth Escobar Office Visit Transplant Li fred (HCC); Medication Therapy Alf Not 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; Elevated Liver Function Test 09/13/2024 LAB Blood Test Transplant Live r (HCC); Rejection Liver Transplant (HCC) 09/15/2024 PHR Pharmacist Appoi ntment 09/15/2024 LAB Blood Test 09/15/2024 TXP - Loretta Strickland Consultation 10/10/2024 TXP Nurse Visit 10/10/2024 LAB Blood Test 10/10/2024 LAB Urine Container Visit 10/11/2024 TXP Consultation 10/11/2024 ENT - Vanessa Urbano Consultation 10/11/2024 TXP - Jt Murillo Appointment 10/11/2024 TXP Appointment 10/12/2024 TXP Appointment
--- OUTSIDE RECORDS SUMMARY | 2024-09-14 01:34 | XMS_ITS | Encounter Summary ---
Author Organization [facility] Address [address] [place] [address] Care Team Providers Care Curriculum Coach Name Role Phone Ana Red P.A.-C. Primary Care Pro vider Reason for Referral * Outpatient (Routine) - Authorized Specialty Diagnoses / Procedures Referred By Meir lara Referred To Contact Radiology Diagnoses Aftercare Transplant Liver (HCC) Procedures IR PICC Line Placement Noreen Ansari P.A.-C., M.S. [address] [place] [phone] Phone: tel: fax: [facility] Referral ID Status Reason Start Date Expiration Date V isits Requested Visits Authorized [id number] Authorized 09/13/2024 12/14/2025 1 1 Encounter Details Date Type Department Care Team (Late st Contact Info) Description 09/13/2024 [facility] Only [facility] in [place], [place] [address] [place] [phone] Noreen Ansari P.A.-C., M.S. [address] [place] [phone] Aftercare Transplant Liver (HCC) (Primary Dx) Social History [...] In the past 12 months has e [employer], oil, or water nGame threatened to shut off services in your [...] week 02/10/2022 How often do you attend [facility] or judaism services? Patient declined 02/10/2022 Do you belong [...] Answer Date Recorded PHQ-2 Score 0 08/11/2024 [facility] ional Health - Occupational [...] living situation today? I have a [facility] place to live 09/09/2024 Education Answer Date Recorded What is the highest level of school you have completed or the highest degree you have received? Associate degree: occupational, technical, or vocational program 07/16/2021 Comments No Sex and Gender Information Value Date Recorded Sex Assigned at Female 04/12/2021 7:39 PM RADIOLOGIST PHYSICIAN Legal Sex Female 7:53 PM RADIOLOGIST PHYSICIAN Gender Identity Female 04/12/2021 7:39 PM RADIOLOGIST PHYSICIAN Sexual Orientation Straight 04/12/2021 7: 39 PM RADIOLOGIST PHYSICIAN documented as of this encounter Plan of Treatment Upcoming Encounters Date Type Department Care Team (Latest Contact Info) Description 09/14/2024 11:00 AM CDT Appointment Department of Radiology, [facility] in [place], [place] [address] [place] [phone] Noreen Ansari P.A.-C., M.S. [address] [place] [phone] Jesus Figueroa M.D. [address] [place] [phone] 09/14/2024 4:00 PM CDT Telemedicine Division of Pulmonary Medicine in [place], [place] [address] [place] [phone] Ben Dickson APRN, C.N.P. [address] [place] [phone] 09/15/2024 8:00 AM CDT Lab Department of Laboratory Medicine and Pathology, [facility] in [place], [place] [address] [place] [phone] Edgar Montgomery M.B.B.S., M.S. [address] [place] [phone] 09/15/2024 10:00 AM CDT Comprehensive [facility] in [place], [place] [address] [place] [phone] Edgar Montgomery M.B.B.SSuma, M.S. [address] [place] [phone] Miriam Strickland M.D. [address] [place] [phone] 09/15/2024 11:00 AM CDT [facility] in [place], [place] [address] [place] [address] Edgar Montgomery M.B.B.S., M.S. [address] [place] [phone] Discharge Disposition: Home or Self Care 09/15/2024 1:45 PM CDT Infusion Department of Infusion Therapy in [place], [place] [address] [place] [address] Juan Pete M.D. [address] [place] [phone] 09/18/2024 2:15 PM CDT Hospital Encounter Department of Radiology, [facility], in [place], [place] [address] [place] [address] Edgar Montgomery M.B.B.S., M.S. [address] [place] [phone] 09/20/2024 3:00 PM CDT Comprehensive Visit [facility] Transplantation and Clinical Regeneration in [place], [place] [address] [place] [address] Catia Quintana APRN, C.N.P. [address] [place] [phone] 10/03/2024 9:00 AM CDT Appointment Department of Radiology, [facility] in [place], [place] [address] [place] [address] Marisabel Carpenter APRN, C.N.P., D.N.P. [address] [place] [phone] 10/05/2024 12:00 PM CDT Appointment Division of Pulmonary Medicine in [place], [place] [address] [place] [address] Edgar Montgomery M.B.B.S., M.S. [address] [place] [phone] 10/10/2024 7:50 AM CDT Lab Department of Laboratory Medicine and Pathology, [facility] in [place], [place] [address] [place] [address] Marisabel Carpenter APRN, C.N.P., D.N.P. [address] [place] [phone] 10/10/2024 8:00 AM CDT Lab Department of Laboratory Medicine and Pathology, [facility] in [place], [place] [address] [place] [address] Marisabel Carpenter APRN, C.N.P., D.N.P. [address] [place] [phone] 10/10/2024 8:30 AM CDT Nurse Only [facility] in [place], [place] [address] [place] [address] Marisabel Carpenter APRN, C.N.P., D.N.P. [address] [place] [phone] 10/10/2024 9:20 AM CDT Appointment Department of Radiology, [facility], in [place], [place] [address] [place] [address] Marisabel Carpenter APRN, C.N.P., D.N.P. [address] [place] [phone] 10/10/2024 9:45 AM CDT Appointment Department of Laboratory Medicine and Pathology, [facility] in [place], [place] [address] [place] [address] Marisabel Carpenter APRN, C.N.PSuma, D.N.P. [address] [place] [phone] 10/10/2024 1:30 PM CDT Appointment Department of Radiology, [facility] in [place], [place] [address] [place] [address] Marisabel Carpenter APRN, C.N.P., D.N.P. [address] [place] [phone] 10/10/2024 2:45 PM CDT Appointment Department of Radiology, [facility], in [place], [place] [address] [place] [address] Marisabel Carpenter APRN, C.N.P., D.N.P. [address] [place] [phone] 10/11/2024 8:00 AM CDT Office Visit Ramirez diaz [facility] for Transplantation and Clinical Regeneration in [place], [place] [address] [place] [address] Marisabel Carpenter APRN, C.N.P., D.N.P. [address] [place] [phone] 10/11/2024 11:00 AM CDT Comprehensive Visit [facility] in [place], [place] [address] [place] [address] Sree Devlin M.D. [address] [place] [phone] 10/11/2024 1:00 PM CDT Comprehensive Visit Department of Otorhinolaryngology in [place], [place] [address] [place] [address] Randal Urbano P.A.-C., M.S. [address] [place] [phone] 10/11/2024 2:00 PM CDT Office Visit [facility] Transplantation and Clinical Regeneration in [place], [place] [address] [place] [address] Hiro Murillo P.A.-C. [address] [place] [phone] 10/11/2024 4:00 PM CDT Comprehensive Visit Department of Dermatology in [place], [place] [address] [place] [phone] Parul Martinez M.D. [address] [place] [phone] 10/12/2024 8:00 AM CDT Telemedicine [facility] Transplantation and Clinical Regeneration in [place], [place] [address] [place] [address] Ervin Mckeon D.O. [address] [place] [phone] 11/01/2024 2:15 PM CDT Appointment Division of Pulmonary Medicine in [place], [place] [address] [place] [address] Edgar Montgomery M.B.B.S., M.S. [address] [place] [address] Scheduled Orders Name Type Priority Associated Diagnoses Orde r Schedule IR PICC Line Placement Imaging RAD - Routine (most inpatients and all outpatients) Aftercare Transplant Liver (HCC) Expected: 09/13/2024, Expires: 12/14/2025 documented as of this encounter Visit Diagnoses Diagnosis Aftercare Transplant Liver (HCC)- Primary documented in this encounter Additional Health Concerns Infection Onset Date Last Indicated Resolved Time Protective Environment 10/10/2022 10/10/2022 Assessment Noted Time PHQ-9 Depression Total Score: 4 08/12/19 25 3:31 PM CDT documented as of this encounter Care Teams Curriculum Coach Relationship Specialty Start Date End Date Ana Red MPAS, P.A.-C. [address] [place] [phone] PCP - General Internal Medicine 12/01/21 [facility] [place] [facility] 08/25/21 documented as of this encounter
--- OUTSIDE RECORDS SUMMARY | 2024-09-14 01:34 | XMS_ITS | Encounter Summary ---
Author Organization [facility] Address [address] [place] [address] Care Team Providers Care Molding Associate Name Role Phone Ana Red P.A.-C. Primary Care Pro vider Reason for Visit * Reason Comments Arm Pain Encounter Details Date Type Department Care Team (Late st Contact Info) Description 09/11/2024 9:13 PM CDT - 09/12/2024 3:24 AM CDT Emergency [facility] Emergency Department [address] [place] [phone] Marcelo Ballesteros M.D. [address] [place] [phone] Thrombosis Venous (Primary Dx); Pain Arm Right [...] alcohol in about a year or so. [facility] Utilities Answer Date Recorded In the [...] How often do you attend [facility] or yazidism services? Patient declined 02/10/2022 Do you belong to any clubs o r organizations such as yazidism groups, unions, fraternal [...] Answer Date Recorded PHQ-2 Score 0 08/11/2024 [facility] - Occupational [...] your living situation today? I have a [facility] place to live 09/09/2024 Education Answer Date Recorded What is the highest level of school you have completed or the highest degree you have received? Associate degree: occupational, technical, or vocational program 07/16/2021 Comments No Sex and Gender Information Value Date Recorded Sex Assigned at Female 04/12/2021 7:39 PM STATION SUPERINTENDENT Legal Sex Female 7:53 PM STATION SUPERINTENDENT Gender Identity Female 04/12/2021 7:39 PM STATION SUPERINTENDENT Sexual Orientation Straight 04/12/2021 7: 39 PM STATION SUPERINTENDENT documented as of this encounter Last [...] glucose testing. 1 each 05/15/2024 1:09 PM STATION SUPERINTENDENT 05/15/2024 blood sugar diagnostic strips Use to test blood sugar 2 time(s) per day. 100 test 1 07/04/2024 1:55 PM STATION SUPERINTENDENT 07/04/2024 07/05/19 26 blood-glucose meter misc Test as directed for diabetes control. 1 each 05/15/2024 1:09 PM STATION SUPERINTENDENT 05/15/2024 blood-glucose sensor (FreeStyle Kristina 3 Plus [...] testing. 100 each 1 07/04/2024 1:55 PM STATION SUPERINTENDENT 07/04/2024 levonorgestreL (MIRENA) 21 mcg/24 hours (8 yrs) 52 mg IUD 1 Intra Uterine Device (1 each total) by intrauterine route continuously. Inserted 07/31/2022. 1 each 12/31/2022 lidocaine 4 % adhesive patch,medicated Place 1 patch on the skin daily. Apply to painful areas. 30 patch 1 04/20/2024 drjzxq-xnygtrwu-uh ylase (Creon) 12,000-38,000-60,[address] [...] minimal response. 2 each 04/25/2024 12:55 PM STATION SUPERINTENDENT 04/25/2024 ondansetron (Zofran) 8 mg tabletIndications: Transplant Liver (HCC),Nausea,Medic ation Therapy Ent Nurse Not 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 Take 1 tablet (8 mg [...] mouth daily. 90 tablet 06/27/2024 5:33 PM STATION SUPERINTENDENT 06/28/2024 pregabalin (Lyrica) 75 mg capsule Take 1 capsule (75 mg total) by mouth 2 (two) times a day. 60 capsule 09/08/2024 10/09/19 25 prochlorperazine (Compazine) 10 mg tablet Take 1 tablet (10 mg total) by mouth every 6 (six) hours as needed for nausea or vomiting. 30 tablet 08/31/2024 9:26 AM CDT 08/31/2024 sennosides-docusat e sodium (Senokot-S) 8.6-50 mg per tablet Take 1 tablet by mouth 2 (two) times a day as needed for constipation. 100 tablet 06/27/2024 5:33 PM STATION SUPERINTENDENT 06/27/2024 tacrolimus (Prograf) 1 mg capsuleIndications :prevention of liver transplant rejection Take 4 capsules (4 mg total) by mouth 2 (two) times a day Indications: liver transplant rejection prevention. 720 capsule 3 09/09/2024 09/10/19 26 teriparatide (Forteo) 20 mcg/dose (600mcg/2.4mL) injection Inject [...] 12/07/19 25 documented as of this encounter ED [...] at this time. Final Diagnoses: as of 09/11/24 2341 Pain Arm Right Thrombosis Venous - Superficial [...] skin was splotchy. Faviola De Oliveira R.N. 09/11/24 2330 * Nola Dickson R.N. - 09/11/2024 9:29 PM CDT Patient presents to the Emergency Department with right arm pain, swelling, and erythema. Patient had a Thymoglobulin infusion on Wednesday and the medication infiltrated. Today patient noted new swelling, redness, and pain at the site. Nola Dickson R.N. 09/11/24 2131 documented in this encounter Plan of Treatment Upcoming Encounters Date Type Department Care Team (Latest Contact Info) Description 09/14/2024 11:00 AM CDT Appointment Department of Radiology, [facility], in [place], [place] [address] Noreen Ansari P.A.-C., [place] [phone] Jesus Figueroa M.D. [address] [place] [phone] 09/14/2024 4:00 PM CDT Telemedicine Division of Pulmonary Medicine in [place], [place] [address] [place] [address] Ben Dickson, YARITZA, C.N.P. [address] [place] [phone] 09/15/2024 8:00 AM CDT Lab Department of Laboratory Medicine and Pathology, [facility] in [place], [place] [address] [place] [address] Edgar [place] M.B.B.S., M.S. [address] [place] [phone] 09/15/2024 10:00 AM CDT [facility] [place], [place] [address] [place] [address] Edgar [place] M.B.B.S., M.S. [address] [place] [phone] Miriam Strickland M.D. [address] [place] [phone] 09/15/2024 11:00 AM CDT Office Visit [facility] in [place], [place] [address] [place] [address] Edgar [place] M.B.B.S., M.S. [address] [place] [phone] Discharge Disposition: Home or Self Care 09/15/2024 1:45 PM CDT Infusion Department of Infusion Therapy in [place], [place] [address] [place] [address] Juan Pete M.D. [address] [place] [phone] 09/18/2024 2:15 PM CDT Hospital Encounter Department of Radiology, [facility] in [place], [place] [address] [place] [address] Edgar [place] M.B.B.S., M.S. [address] [place] [phone] 09/20/2024 3:00 PM CDT Comprehensive Visit [facility] in [place], [place] [address] [place] [address] Catia Quintana APRN, C.N.P. [address] [place] [phone] 10/03/2024 9:00 AM CDT Appointment Department of Radiology, [facility] in [place], [place] [address] [place] [address] Marisabel Carpenter APRN, C.N.P., D.N.P. [address] [place] [phone] 10/05/2024 12:00 PM CDT Appointment Division of Pulmonary Medicine in [place], [place] [address] [place] [address] Edgar [place] M.B.B.S., M.S. [address] [place] [phone] 10/10/2024 7:50 AM CDT Lab Department of Laboratory Medicine and Pathology, [facility], in [place], [place] [address] [place] [address] Marisabel Carpenter APRN, C.N.P., D.N.P. [address] [place] [phone] 10/10/2024 8:00 AM CDT Lab Department of Laboratory Medicine and Pathology, [facility] in [place], [place] [address] [place] [address] Marisabel Carpenter APRN C.N.PSuma, D.N.P. [address] [place] [phone] 10/10/2024 8:30 AM CDT Nurse Only Ramirez diaz [facility] in [place], [place] [address] [place] [address] Marisabel Carpenter APRN, C.N.PSuma, D.N.P. [address] [place] [phone] 10/10/2024 9:20 AM CDT Appointment Department of Radiology, [facility] in [place], [place] [address] [place] [address] Marisabel Carpenter APRN, C.N.P., D.N.P. [address] [place] [phone] 10/10/2024 9:45 AM CDT Appointment Department of Laboratory Medicine and Pathology, [facility] in [place], [place] [address] [place] [address] Marisabel Carpenter APRN, C.N.P., D.N.P. [address] [place] [phone] 10/10/2024 1:30 PM CDT Appointment Department of Radiology, [facility], in [place], [place] [address] [place] [address] Marisabel Carpenter APRN C.N.PSuma, D.N.P. [address] [place] [phone] 10/10/2024 2:45 PM CDT Appointment Department of Radiology, [facility], in [place], [place] [address] [place] [address] Marisabel Carpenter APRN, C.N.PSuma, D.N.P. [address] [place] [phone] 10/11/2024 8:00 AM CDT Office Visit [facility] in [place], [place] [address] [place] [address] Marisabel Carpenter APRN, C.N.PSuma, D.N.P. [address] [place] [phone] 10/11/2024 11:00 AM CDT Comprehensive Visit [facility] in [place], [place] [address] [place] [address] Sree Devlin M.D. [address] [place] [phone] 10/11/2024 1:00 PM CDT Comprehensive Visit Department of Otorhinolaryngology in [place], [place] [address] [place] [address] Randal Urbano P.A.-C., M.S. [address] [place] [phone] 10/11/2024 2:00 PM CDT Office Visit [facility] in [place], [place] [address] [place] [phone] Hiro Murillo P.A.-C. [address] [place] [phone] 10/11/2024 4:00 PM CDT Comprehensive Visit Department of Dermatology in [place], [place] [address] [place] [phone] Parul Martinez M.D. [address] [place] [phone] 10/12/2024 8:[address] [facility] Transplantation and Clinical Regeneration in [place], [place] [address] [place] [phone] Ervin Mckeon D.O. [address] [place] [phone] 11/01/2024 2:15 PM CDT Appointment Division of Pulmonary Medicine in [place], [place] [address] [place] [phone] Edgar [place] M.B.BSumaS., M.S. [address] [place] [phone] documented as of this encounter Procedures Procedure [...] * Patient Status (09/12/2024 2:11 AM CDT) Pathologist [facility] Emergency Department FIO2 0.21 0.21=AIR 09/12/2024 2:16 AM CDT STMA Device RA 09/12/2024 2:16 AM CDT STMA Spont. breaths/min 18 09/12/2024 2:16 AM CDT STMA Blood 09/12/2024 2:11 AM CDT 09/12/2024 2:16 AM CDT us Hugo Patel M.D. LAB BLOOD NON ADD-ON Final Re sult [facility] [address] [place] [address], [facility] [address] [place] [address] * (ABNORMAL) Blood Gas without Coox, Venous (09/12/2024 2:11 AM CDT) Pathologist [facility] Emergency Department pO2, Venous, B 71 Not applicable mm [...] LAB BLOOD NON ADD-ON Final Re sult [facility] [address] [place] [address], [facility] [address] [place] [address] * CT Chest Angiogram and Pulmonary Arteries [...] M.D. LAB BLOOD TROPONIN Final Resu lt [facility] 200 [place], [place] [address] 200 [place] [address] * NT-Pro B-Type Natriuretic Peptide (BNP) (09/11/2024 11:55 PM CDT) NT-Pro BNP 77 <160 pg/mL 09/12/2024 3:16 AM CDT [facility] Comment: REVISED RESULTS NT-proBNP values less than [...] BLOOD ADD-ON Edited Resul t - Final [facility] 200 [place] [address], [facility] 200 [place] [address] * (ABNORMAL) Basic Metabolic Panel (09/11/2024 11:55 PM CDT) Pathologist [facility] Emergency Department Potassium, P 3.7 3.6 - 5.2 mmol/L [...] Patel M.D. LAB [place]OD [place] [address], [facility] 200 [place] [address] * (ABNORMAL) CBC with Differential, Blood (09/11/2024 [...] Patel M.D. LAB BLOOD ADD-ON Final Result [facility] [address] [place] [address], [facility] STMA [facility] [address] [place] [address] [facility] [place] [address] [place] [address] * hCG (Human Chorionic Gonadotropin), Quantitative, (09/11/2024 11:55 PM CDT) Pathologist [facility] Emergency Department HCG, Quantitative, , P <1.0 <5 IU/L 09/12/2024 12:54 AM CDT [facility] Blood (Blood, Venous) 09/11/2024 11:55 PM CDT 09/12/2024 12:28 AM CDT us Hugo Patel M.D. LAB BLOOD ADD-ON Final Result Performing Organization Address [facility] Co de Phone Number [facility] [address] [place] [address], [place] STMA [facility] 200 [place] [address] * ECG 12 Lead (09/11/2024 11:43 PM CDT) Ventricular Rate ECG/Min 90 BPM MUSE IN Interval 150 ms MUSE QRSD Interval 78 ms MUSE QT Interval 364 ms MUSE QTC Interval 445 ms MUSE P Gracey 3 degrees MUSE R Gracey -1 degrees MUSE T Wave Gracey 13 degrees MUSE 09/11/2024 11:4 3 PM [...] and management can be found on the [employer] site. Link [email or web address]/topic/clinical-answers/[email or web address]/[email or web address] [address] Procedure Note Haile Flowers M.D. - 09/12/2024 [...] thrombosis and management can be found on the[employer] site. [email or web address]/topic/clinical-answers/[email or web address]/[email or web address] -2047 7287 IMPRESSION: 1. Negative for acute DVT. 2. [...] Patel M.D. LAB BLOOD ADD-ON Final Result [facility] [address] [place] [address], [facility] [address] [place] [address] documented in this encounter Visit Diagnoses Diagnosis [...] 0013 (Given - Provid er: Faviola De Oliveira, RSumaN.) HYDROmorphone (PF) injection 1 mg (Dilaudid) (COMPLETED) 1 mg, intravenous, Once, On Wed09/12/24 at 0054, For 1 dose 0058 (Given - Provid er: Faviola De Oliveira, R.N.) HYDROmorphone (PF) injection 1 mg (Dilaudid) [...] Guidelines 0021 (Given - Provid er: Evi Ring M.P.H., R.N.) PRN Medication Order 09/10/2024 09/11/2024 [...] Guidelines 0022 (Given - Provid er: Evi Ring M.P.H., R.N.) documented in this encounter Additional Health Concerns Infection Onset Date Last Indicated Resolved Time Protective Environment 10/10/2022 10/10/2022 Assessment Noted Time PHQ-9 Depression Total Score: 4 08/12/19 25 3:31 PM CDT documented as of this encounter Care Teams Molding Associate Relationship Specialty Start Date End Date Ana Red MPAS, P.A.-C. [address] [place] [phone] PCP - General Internal Medicine 12/01/21 [facility] [place] [facility] 08/25/21 documented as of this encounter
--- OUTSIDE RECORDS SUMMARY | 2024-09-14 01:34 | XMS_ITS | Encounter Summary ---
Author Organization [facility] Address [address] [place] [address] Care Team Providers Care Auto Tester Name Role Phone Ana Red P.A.-C. Primary Care Pro vider Encounter Details Date Type Department Care Team (Late st Contact Info) Description 09/13/2024 Clinical Communication Department of Infusion Therapy in [place], [place] [address] [place] [phone] Nita Long, [place]-, R.N. [address] [place] [phone] Social History Tobacco Use Types Packs/Day Years [...] week 02/10/2022 How often do you attend [facility] or nondenominational services? Patient declined 02/10/2022 Do you belong [...] your living situation today? I have a [facility] place to live 09/09/2024 Education Answer Date Recorded What is the highest level of school you have completed or the highest degree you have received? Associate degree: occupational, technical, or vocational program 07/16/2021 Comments No Sex and Gender Information Value Date Recorded Sex Assigned at Female 04/12/2021 7:39 PM STRAP MAKER Legal Sex Female 7:53 PM STRAP MAKER Gender Identity Female 04/12/2021 7:39 PM STRAP MAKER Sexual Orientation Straight 04/12/2021 7: 39 PM STRAP MAKER documented as of this encounter Plan of Treatment Upcoming Encounters Date Type Department Care Team (Latest Contact Info) Description 09/14/2024 11:00 AM CDT Appointment Department of Radiology, [facility], in [place], [place] [address] [place] [address] Noreen Ansari P.A.-C., M.S. [address] [place] [phone] Jesus Figueroa M.D. [address] [place] [phone] 09/14/2024 4:00 PM CDT Telemedicine Division of Pulmonary Medicine in [place], [place] [address] [place] [phone] Ben Dickson APRN, C.N.P. [address] [place] [phone] 09/15/2024 8:00 AM CDT Lab Department of Laboratory Medicine and Pathology, [facility] in [place], [place] [address] [place] [phone] Edgar [place] M.B.B.S., M.S. [address] [place] [phone] 09/15/2024 10:00 AM CDT Comprehensive Visit [facility] in [place], [place] [address] [place] [phone] Edgar [place] M.B.B.S., M.S. [address] [place] [phone] Miriam Strickland M.D. [address] [place] [phone] 09/15/2024 11:00 AM CDT Office Visit [facility] in [place], [place] [address] [place] [phone] Edgar [place] M.B.B.S., M.S. [address] [place] [phone] Discharge Disposition: Home or Self Care 09/15/2024 1:45 PM CDT Infusion Department of Infusion Therapy in [place], [place] [address] [place] [phone] Juna Pete M.D. [address] [place] [phone] 09/18/2024 2:15 PM CDT Hospital Encounter Department of Radiology, [facility] in [place], [place] [address] [place] [address] Edgar [place] M.B.B.S., M.S. [address] [place] [phone] 09/20/2024 3:00 PM CDT [facility] in [place], [place] [address] [place] [phone] Catia Quintana APRN, C.N.P. [address] [place] [phone] 10/03/2024 9:00 AM CDT Appointment Department of Radiology, [facility] in [place], [place] [address] [place] [phone] Marisabel Carpenter APRN, C.N.P., D.N.P. [address] [place] [phone] 10/05/2024 12:00 PM CDT Appointment Division of Pulmonary Medicine in [place], [place] [address] [place] [phone] Edgar [place] M.B.B.S., M.S. [address] [place] [phone] 10/10/2024 7:50 AM CDT Lab Department of Laboratory Medicine and Pathology, [facility] in [place], [place] [address] [place] [address] Marisabel Carpenter APRN, C.N.PSuma, D.N.P. [address] [place] [phone] 10/10/2024 8:00 AM CDT Lab Department of Laboratory Medicine and Pathology, [facility] in [place], [place] [address] [place] [address] Marisabel Carpenter APRN, C.N.P., D.N.P. [address] [place] [phone] 10/10/2024 8:30 AM CDT Nurse Only [facility] in [place], [place] [address] [place] [address] Marisabel Carpenter APRN, C.N.P., D.N.P. [address] [place] [phone] 10/10/2024 9:20 AM CDT Appointment Department of Radiology, [facility] in [place], [place] [address] [place] [address] Marisabel Carpenter APRN, C.N.P., D.N.P. [address] [place] [phone] 10/10/2024 9:45 AM CDT Appointment Department of Laboratory Medicine and Pathology, [facility] in [place], [place] [address] [place] [address] Marisabel Carpenter APRN, Katrin.N.P., D.N.P. [address] [place] [phone] 10/10/2024 1:30 PM CDT Appointment Department of Radiology, [facility], in [place], [place] [address] [place] [address] Marisabel Carpenter APRN, C.N.P., D.N.P. [address] [place] [phone] 10/10/2024 2:45 PM CDT Appointment Department of Radiology, [facility], in [place], [place] [address] [place] [address] Marisabel Carpenter APRN, C.N.PSuma, D.N.P. [address] [place] [phone] 10/11/2024 8:00 AM CDT Office Visit [facility] in [place], [place] [address] [place] [phone] Marisabel Carpenter APRN, C.N.P., D.N.P. [address] [place] [phone] 10/11/2024 11:00 AM CDT Comprehensive Visit [facility] Trans[facility] and Clinical Regeneration in [place], [place] [address] [place] [phone] Sree Devlin M.D. [address] [place] [phone] 10/11/2024 1:00 PM CDT Comprehensive Visit Department of Otorhinolaryngology in [place], [place] [address] [place] [phone] Randal Urbano P.A.-C., M.S. [address] [place] [phone] 10/11/2024 2:00 PM CDT Office Visit [facility] Transplantation and Clinical Regeneration in [place], [place] [address] [place] [phone] Hiro Murillo P.A.-C. [address] [place] [phone] 10/11/2024 4:00 PM CDT Comprehensive Visit Department of Dermatology in [place], [place] [address] [place] [phone] Parul Martinez M.D. [address] [place] [phone] 10/12/2024 8:00 AM CDT Telemedicine [facility] Trans[facility] in [place], [place] [address] [place] [phone] Ervin Mckeon D.O. [address] [place] [phone] 11/01/2024 2:15 PM CDT Appointment Division of Pulmonary Medicine in [place], [place] [address] [place] [phone] Edgar [place] M.B.B.S., M.S. [address] [place] [phone] documented as of this encounter Visit Diagnoses Not on filedocumented in this encounter Additional Health Concerns Infection Onset Date Last Indicated Resolved Time Protective Environment 10/10/2022 10/10/2022 Assessment Noted Time PHQ-9 Depression Total Score: 4 08/12/19 25 3:31 PM CDT documented as of this encounter Care Teams Auto Tester Relationship Specialty Start Date End Date Ana Red MPAS, P.ASuma-C. [address] [place] [address] [place] [phone] PCP - General Internal Medicine 12/01/21 [facility] 08/25/21 documented as of this encounter
--- OUTSIDE RECORDS SUMMARY | 2024-09-14 01:34 | XMS_ITS | Encounter Summary ---
Author Organization [facility] Address [address] [place] [address] Care Team Providers Care Snuff Maker Name Role Phone Ana Red P.A.-C. Primary Care Pro vider Encounter Details Date Type Department Care Team (Late st Contact Info) Description 09/13/2024 Orders Only Ramirez diaz [facility] Clinical Reg[facility] in [place], [place] [address] [place] [phone] Ben Redmond, YARITZA, C.N.P., D.N.P. [address] [place] [phone] Social History Tobacco Use Types Packs/Day Years [...] Score 0 08/11/2024 [facility] of Occupat ional Health - Occupational Stress [...] your living situation today? I have a [facility] to live 09/09/2024 Education Answer Date Recorded What is the highest level of school you have completed or the highest degree you have received? Associate degree: occupational, technical, or vocational program 07/16/2021 Comments No Sex and Gender Information Value Date Recorded Sex Assigned at Female 04/12/2021 7:39 PM VISION REHABILITATION THERAPIST Legal Sex Female 7:53 PM VISION REHABILITATION THERAPIST Gender Identity Female 04/12/2021 7:39 PM VISION REHABILITATION THERAPIST Sexual Orientation Straight 04/12/2021 7: 39 PM VISION REHABILITATION THERAPIST documented as of this encounter Plan of Treatment Upcoming Encounters Date Type Department Care Team (Latest Contact Info) Description 09/14/2024 11:00 AM CDT Appointment Department of Radiology, [facility], in [place], [place] [address] [place] [address] Noreen Ansari P.A.-C., M.S. [address] [place] [address] Jesus Figueroa M.D. [address] [place] [phone] 09/14/2024 4:00 PM CDT Telemedicine Division of Pulmonary Medicine in [place], [place] [address] [place] [address] Ben Dickson APRN, C.N.P. [address] [place] [phone] 09/15/2024 8:00 AM CDT Lab Department of Laboratory Medicine and Pathology, [facility], in [place], [place] [address] [place] [address] Edgar Montgomery M.B.B.S., M.S. [address] [place] [phone] 09/15/2024 10:00 AM CDT [facility] in [place], [place] [address] [place] [address] Edgar Montgomery M.B.B.S., M.S. [address] [place] [phone] Miriam Strickland M.D. [address] [place] [phone] 09/15/2024 11:00 AM CDT Office Visit Ramirez Navarrete [facility] for Transplantation and Clinical Regeneration in [place], [place] [address] [place] [address] Edgar Montgomery M.B.B.S., M.S. [address] [place] [phone] Discharge Disposition: Home or Self Care 09/15/2024 1:45 PM CDT Infusion Department of Infusion Therapy in [place], [place] [address] [place] [address] Juan Pete M.D. [address] [place] [phone] 09/18/2024 2:15 PM CDT Hospital Encounter Department of Radiology, [facility] in [place], [place] [address] [place] [address] Edgar Montgomery M.B.B.S., M.S. [address] [place] [phone] 09/20/2024 3:00 PM CDT Comprehensive Visit [facility] in [place], [place] [address] [place] [phone] Catia Quintana APRN, C.N.P. [address] [place] [phone] 10/03/2024 9:00 AM CDT Appointment Department of Radiology, [facility], in [place], [place] [address] [place] [address] Marisabel Carpenter APRN, C.N.P., D.N.P. [address] [place] [phone] 10/05/2024 12:00 PM CDT Appointment Division of Pulmonary Medicine in [place], [place] [address] [place] [address] Edgar Montgomery M.B.B.S., M.S. [address] [place] [phone] 10/10/2024 7:50 AM CDT Lab Department of Laboratory Medicine and Pathology, [facility] in [place], [place] [address] [place] [address] Marisabel Carpenter APRN, C.N.P., D.N.P. [address] [place] [phone] 10/10/2024 8:00 AM CDT Lab Department of Laboratory Medicine and Pathology, [facility] in [place], [place] [address] [place] [address] Marisabel Carpenter APRN, C.N.P., D.N.P. [address] [place] [phone] 10/10/2024 8:30 AM CDT Nurse Only Ramirez diaz [facility] in [place], [place] [address] [place] [address] Marisabel Carpenter APRN, C.N.P., D.N.P. [address] [place] [phone] 10/10/2024 9:20 AM CDT Appointment Department of Radiology, [facility] in [place], [place] [address] [place] [address] Marisabel Carpenter APRN, C.N.P., D.N.P. [address] [place] [phone] 10/10/2024 9:45 AM CDT Appointment Department of Laboratory Medicine and Pathology, [facility] in [place], [place] [address] [place] [address] Marisabel Carpenter APRN, C.N.P., D.N.P. [address] [place] [address] 10/10/2024 1:30 PM CDT Appointment Department of Radiology, [facility] in [place], [place] [address] [place] [address] Marisabel Carpenter APRN, C.N.PSuma, D.N.P. [address] [place] [phone] 10/10/2024 2:45 PM CDT Appointment Department of Radiology, [facility] in [place], [place] [address] [place] [address] Marisabel Carpenter APRN, C.N.PSuma, D.N.P. [address] [place] [phone] 10/11/2024 8:00 AM CDT Office Visit [facility] [place] for Transplantation and Clinical Regeneration in [place], [place] [address] [place] [address] Marisabel Carpenter APRN, C.N.P., D.N.P. [address] [place] [phone] 10/11/2024 11:00 AM CDT Comprehensive Visit [facility] [place], [facility] for Transplantation and Clinical Regeneration in [place], [place] [address] [place] [address] Sree Devlin M.D. [address] [place] [phone] 10/11/2024 1:00 PM CDT Comprehensive Visit Department of Otorhinolaryngology in [place], [place] [address] [place] [address] Randal Urbano P.A.-C., M.S. [address] [place] [phone] 10/11/2024 2:00 PM CDT Office Visit [facility] Transplantation and Clinical Regeneration in [place], [place] [address] [place] [phone] Hiro Murillo P.A.-C. [address] [place] [phone] 10/11/2024 4:00 PM CDT Comprehensive Visit Department of Dermatology in [place], [place] [address] [place] [phone] Parul Martinez M.D. [address] [place] [phone] 10/12/2024 8:00 AM CDT Telemedicine [facility] Transplantation and Clinical Regeneration in [place], [place] [address] [place] [phone] Ervin Mckeon D.O. [address] [place] [phone] 11/01/2024 2:15 PM CDT Appointment Division of Pulmonary Medicine in [place], [place] [address] [place] [phone] Edgar Montgomery M.B.B.S., M.S. [address] [place] [phone] documented as of this encounter Visit Diagnoses Not on filedocumented in this encounter Additional Health Concerns Infection Onset Date Last Indicated Resolved Time Protective Environment 10/10/2022 10/10/2022 Assessment Noted Time PHQ-9 Depression Total Score: 4 08/12/19 25 3:31 PM CDT documented as of this encounter Care Teams Snuff Maker Relationship Specialty Start Date End Date Ana Red MPAS, PToo. [address] [facility] [place] [phone] PCP - General Internal Medicine 12/01/21 [facility] 08/25/21 documented as of this encounter
--- OUTSIDE RECORDS SUMMARY | 2024-09-14 01:34 | XMS_ITS | Encounter Summary ---
Author Organization [facility] Address [address] [place] [address] Care Team Providers Care Sales And Marketing Specialist Name Role Phone Ana Red P.A.-C. Primary Care Pro vider Encounter Details Date Type Department Care Team (Late st Contact Info) Description 09/12/2024 Orders Only Ramirez diaz [facility] for Transplantation and Clinical Regeneration in [place], [place] [address] [place] [phone] AugustSony R.N. [address] [place] [phone] Transplant Liver (HCC) (Primary Dx); Medication Therapy Intermediate Not 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; Rejection Liver Transplant (HCC) Social History Tobacco [...] How often do you attend chur or jainism services? Patient declined 02/10/2022 Do you belong [...] Answer Date Recorded PHQ-2 Score 0 08/11/2024 [facility] of Occupat ional Health - Occupational Stress [...] your living situation today? I have a [facility] place to live 09/09/2024 Education Answer Date Recorded What is the highest level of school you have completed or the highest degree you have received? Associate degree: occupational, technical, or vocational program 07/16/2021 Comments No Sex and Gender Information Value Date Recorded Sex Assigned at Female 04/12/2021 7:39 PM CLIENT EXPERIENCE ADMINISTRATOR Legal Sex Female 7:53 PM CLIENT EXPERIENCE ADMINISTRATOR Gender Identity Female 04/12/2021 7:39 PM CLIENT EXPERIENCE ADMINISTRATOR Sexual Orientation Straight 04/12/2021 7: 39 PM CLIENT EXPERIENCE ADMINISTRATOR documented as of this encounter Plan of Treatment Upcoming Encounters Date Type Department Care Team (Latest Contact Info) Description 09/14/2024 11:00 AM CDT Appointment Department of Radiology, [facility], in [place], [place] [address] [place] [address] EalnNoreen constantino P.A.-C., M.S. [address] [place] [address] Jesus Figueroa M.D. [address] [place] [phone] 09/14/2024 4:00 PM CDT Telemedicine Division of Pulmonary Medicine in [place], [place] [address] [place] [address] Ben Dickson APRN, C.N.P. [address] [place] [phone] 09/15/2024 8:00 AM CDT Lab Department of Laboratory Medicine and Pathology, [facility], in [place], [place] [address] [place] [address] Edgar Montgomery M.B.B.S., M.S. [address] [place] [phone] 09/15/2024 10:00 AM CDT Comprehensive Visit [facility] in [place], [place] [address] [place] [address] Edgar Montgomery M.B.B.S., M.S. [address] [place] [phone] Miriam Strickland M.D. [address] [place] [phone] 09/15/2024 11:00 AM CDT Office Visit Ramirez Navarrete [facility] for Transplantation and Clinical Regeneration in [place], [place] [address] [place] [address] Edgar Montgomery M.B.B.S., M.S. [address] [place] [phone] Discharge Disposition: Home or Self Care 09/15/2024 1:45 PM CDT Infusion Department of Infusion Therapy in [place], [place] [address] [place] [address] Juan Pete M.D. [address] [place] [phone] 09/18/2024 2:15 PM CDT Hospital Encounter Department of Radiology, [facility] in [place], [place] [address] [place] [address] Edgar Montgomery M.B.B.S., M.S. [address] [place] [phone] 09/20/2024 3:00 PM CDT Comprehensive Visit [facility] in [place], [place] [address] [place] [phone] Catia Quintana APRN, C.N.P. [address] [place] [phone] 10/03/2024 9:00 AM CDT Appointment Department of Radiology, [facility], in [place], [place] [address] [place] [address] Marisabel Carpenter APRN, C.N.P., D.N.P. [address] [place] [phone] 10/05/2024 12:00 PM CDT Appointment Division of Pulmonary Medicine in [place], [place] [address] [place] [address] Edgar Montgomery M.B.B.S., M.S. [address] [place] [phone] 10/10/2024 7:50 AM CDT Lab Department of Laboratory Medicine and Pathology, [facility] in [place], [place] [address] [place] [address] Marisabel Carpenter APRN, C.N.P., D.N.P. [address] [place] [phone] 10/10/2024 8:00 AM CDT Lab Department of Laboratory Medicine and Pathology, [facility] in [place], [place] [address] [place] [address] Marisabel Carpenter APRN, C.N.P., D.N.P. [address] [place] [phone] 10/10/2024 8:30 AM CDT Nurse Only Ramirez diaz [facility] for Transplantation and Clinical Regeneration in [place], [place] [address] [place] [address] Marisabel Carpenter APRN, C.N.P., D.N.P. [address] [place] [phone] 10/10/2024 9:20 AM CDT Appointment Department of Radiology, [facility] in [place], [place] [address] [place] [address] Marisabel Carpenter APRN, C.N.P., D.N.P. [address] [place] [phone] 10/10/2024 9:45 AM CDT Appointment Department of Laboratory Medicine and Pathology, [facility] in [place], [place] [address] [place] [address] Marisabel Carpenter APRN, C.N.P., D.N.P. [address] [place] [address] 10/10/2024 1:30 PM CDT Appointment Department of Radiology, [facility] in [place], [place] [address] [place] [address] Marisabel Carpenter APRN, C.N.PSuma, D.N.P. [address] [place] [phone] 10/10/2024 2:45 PM CDT Appointment Department of Radiology, [facility] in [place], [place] [address] [place] [address] Marisabel Carpenter APRN, C.N.Frances, D.N.P. [address] [place] [phone] 10/11/2024 8:00 AM CDT Office Visit [facility] for Transplantation and Clinical Regeneration in [place], [place] [address] [place] [address] Marisabel Carpenter APRN, Katrin.N.PSuma, D.N.P. [address] [place] [phone] 10/11/2024 11:00 AM CDT Comprehensive Visit [facility] for Transplantation and Clinical Regeneration in [place], [place] [address] [place] [address] Sree Devlin M.D. [address] [place] [phone] 10/11/2024 1:00 PM CDT Comprehensive Visit Department of Otorhinolaryngology in [place], [place] [address] [place] [address] Randal Urbano P.A.-C., M.S. [address] [place] [address] 10/11/2024 2:00 PM CDT Office Visit [facility] for Transplantation and Clinical Regeneration in [place], [place] [address] [place] [address] Hiro Murillo P.A.-C. [address] [place] [phone] 10/11/2024 4:00 PM CDT Comprehensive Visit Department of Dermatology in [place], [place] [address] [place] [phone] Parul Martinez M.D. [address] [place] [phone] 10/12/2024 8:00 AM CDT Telemedicine [facility] Transplantation and Clinical Regeneration in [place], [place] [address] [place] [address] Ervin Mckeon D.O. [address] [place] [phone] 11/01/2024 2:15 PM CDT Appointment Division of Pulmonary Medicine in [place], [place] [address] [place] [phone] Edgar Montgomery M.B.B.S., M.S. [address] [place] [phone] documented as of this encounter Results * (ABNORMAL) Quantitative Lymphocyte Subsets: T, B, and Natural Killer (NK) (09/13/2024 12:18 PM CDT) CD45 Total Lymph Count 0.49(L) 0.82 - [...] Cells) 17 7 - 24 % 09/14/19 9:56 PM CDT SDSC CD19 (B Cells) [...] reagent. Its performance characteristics were determined by [facility] in a manner consistent with CLIA requirements. This test has not been cleared or approved by the U.S. Food and Drug Administration. Blood (Blood, Venous) 09/13/2024 12:18 PM CDT 09/13/2024 2:49 PM CDT Juan Pete M.D. LAB BLOOD ADD-ON Final Result [facility] [address] [place] [address] [address] [facility] [address] [place] [address] [place] [address] * (ABNORMAL) CBC no call back, reflex T/S HGB <8 (09/13/2024 12:18 PM CDT) Hemoglobin 13.1 11.6 - 15.0 g/dL 09/13/2024 [...] LAB BLOOD NON ADD-ON Final Res ult [facility] [address] [place] [address], [facility] DTL [facility] [address] [place] [address] [facility] [address] [place] [address] * (ABNORMAL) Bilirubin, Direct (09/13/2024 12:18 PM CDT) Bilirubin, Direct, S 0.5(H) 0.0 - 0.3 mg/dL 09/13/2024 1:15 PM CDT DTL Blood (Blood, Venous) 09/13/2024 12:18 PM CDT 09/13/2024 12:46 PM CDT Juan Pete M.D. LAB BLOOD ADD-ON Final Result [facility] [address] [place] [address], [facility] [address] [place] [address] documented in this encounter Visit Diagnoses Diagnosis Transplant Liver (HCC)- Primary Medication Therapy Motor Expert Not 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 Rejection Liver Transplant (HCC) documented in this encounter Additional Health Concerns Infection Onset Date Last Indicated Resolved Time Protective Environment 10/10/2022 10/10/2022 Assessment Noted Time PHQ-9 Depression Total Score: 4 08/12/19 25 3:31 PM CDT documented as of this encounter Care Teams Sales And Marketing Specialist Relationship Specialty Start Date End Date Ana Red MPAS, P.A.-C. [address] [place] [phone] PCP - General Internal Medicine 12/01/21 [facility] 08/25/21 documented as of this encounter
--- OUTSIDE RECORDS SUMMARY | 2024-09-14 01:34 | XMS_ITS | Encounter Summary ---
Author Organization [facility] Address [address] [place] [address] Care Team Providers Care Bridge Toll Collector Name Role Phone Ana Red P.A.-C. Primary Care Pro vider Encounter Details Date Type Department Care Team (Latest Contact Info) Description 09/13/2024 Clinical Communication Ramirez Landon [facility] for Transplantation and Clinical Regeneration in [place], [place] [address] [place] [address] Debi Cerda R.N., C.C.T.C. Social History Tobacco Use Types Packs/Day Years [...] In the past 12 months has e [employer], gas, oil, or water company threatened to [...] 02/10/2022 How often do you attend [facility] or faith services? Patient declined 02/10/2022 Do you belong to any clubs o r organizations such as alevism groups, unions, fraternal [...] your living situation today? I have a [facility] place to live 09/09/2024 Education Answer Date Recorded What is the highest level of school you have completed or the highest degree you have received? Associate degree: occupational, technical, or vocational program 07/16/2021 Comments No Sex and Gender Information Value Date Recorded Sex Assigned at Female 04/12/2021 7:39 PM INFORMATION TECHNOLOGY SECURITY MANAGER Legal Sex Female 7:53 PM INFORMATION TECHNOLOGY SECURITY MANAGER Gender Identity Female 04/12/2021 7:39 PM INFORMATION TECHNOLOGY SECURITY MANAGER Sexual Orientation Straight 04/12/2021 7: 39 PM INFORMATION TECHNOLOGY SECURITY MANAGER documented as of this encounter Miscellaneous Notes * Telephone Encounter - Debi Cerda R.N., C.C.T.C. - 09/13/2024 2:28 PM CDT I received a call from [facility] stating that Mrs Brunson's Glucose was critical at 415. documented in this encounter Plan of Treatment Upcoming Encounters Date Type Department Care Team (Latest Contact Info) Description 09/14/2024 11:00 AM CDT Appointment Department of Radiology, [facility], in [place], [place] [address] [place] [address] Noreen Ansari P.A.-C., M.S. [address] [place] [phone] Jesus Figueroa M.D. [address] [place] [phone] 09/14/2024 4:00 PM CDT Telemedicine Division of Pulmonary Medicine in [place], [place] [address] [place] [phone] Ben Dickson, YARITZA, C.N.P. [address] [place] [phone] 09/15/2024 8:00 AM CDT Lab Department of Laboratory Medicine and Pathology, [facility], in [place], [place] [address] [place] [phone] Edgar Montgomery M.B.B.S., M.S. [address] [place] [phone] 09/15/2024 10:00 AM CDT Comprehensive Visit [facility], [place], [facility] for Transplantation and Clinical Regeneration in [place], [place] [address] [place] [phone] Edgar Montgomery M.B.B.S., M.S. [address] [place] [phone] Miriam Strickland M.D. [address] [place] [phone] 09/15/2024 11:00 AM CDT [facility] in [place], [place] [address] [place] [address] Edgar Montgomery M.B.B.S., M.S. [address] [place] [phone] Discharge Disposition: Home or Self Care 09/15/2024 1:45 PM CDT Infusion Department of Infusion Therapy in [place], [place] [address] [place] [address] Juan Pete M.D. [address] [place] [phone] 09/18/2024 2:15 PM CDT [facility] [place] [place] [address] [place] [address] Edgar Montgomery M.B.B.S., M.S. [address] [place] [phone] 09/20/2024 3:00 PM CDT Comprehensive Visit [facility] Transplantation and Clinical Regeneration in [place], [place] [address] [place] [phone] Catia Quintana APRN, C.N.P. [address] [place] [phone] 10/03/2024 9:00 AM CDT [facility] [place] [place] [address] [place] [address] Marisabel Carpenter APRN, C.N.P., D.N.P. [address] [place] [phone] 10/05/2024 12:00 PM CDT Appointment Division of Pulmonary Medicine in [place], [place] [address] [place] [phone] Edgar Montgomery M.B.B.S., M.S. [address] [place] [phone] 10/10/2024 7:50 AM CDT Lab Department of Laboratory Medicine and Pathology, [facility] in [place], [place] [address] [place] [address] Marisabel Carpenter APRN, C.N.P., D.N.P. [address] [place] [phone] 10/10/2024 8:00 AM CDT Lab Department of Laboratory Medicine and Pathology, [facility] in [place], [place] [address] [place] [address] Marisabel Carpenter APRN, C.N.P., D.N.P. [address] [place] [address] 10/10/2024 8:30 AM CDT Nurse Only Ramirez Nguyen [facility] for Transplantation and Clinical Regeneration in [place], [place] [address] [place] [phone] Marisabel Carpenter APRN, C.N.P., D.N.P. [address] [place] [phone] 10/10/2024 9:20 AM CDT Appointment Department of Radiology, [facility] in [place], [place] [address] [place] [address] Marisabel Carpenter APRN, C.N.P., D.N.P. [address] [place] [address] 10/10/2024 9:45 AM CDT Appointment Department of Laboratory Medicine and Pathology, [facility] in [place], [place] [address] [place] [address] Marisabel Carpenter APRN, C.N.PSuma, D.N.P. [address] [place] [phone] 10/10/2024 1:30 PM CDT Appointment Department of Radiology, [facility] in [place], [place] [address] [place] [address] Marisabel Carpenter APRN, C.N.PSuma, D.N.P. [address] [place] [phone] 10/10/2024 2:45 PM CDT Appointment Department of Radiology, [facility] in [place], [place] [address] [place] [address] Marisabel Carpenter APRN, C.N.PSuam, D.N.P. [address] [place] [phone] 10/11/2024 8:00 AM CDT [facility] in [place], [place] [address] [place] [address] Marisabel Carpenter APRN, C.N.PSuma, D.N.P. [address] [place] [phone] 10/11/2024 11:00 AM CDT [facility] in [place], [place] [address] [place] [address] Sree Devlin M.D. [address] [place] [address] 10/11/2024 1:00 PM CDT Comprehensive Visit Department of Otorhinolaryngology in [place], [place] [address] [place] [address] Randal Urbano P.A.-C., M.S. [address] [place] [phone] 10/11/2024 2:00 PM CDT [facility] in [place], [place] [address] [place] [address] Hiro Murillo P.A.-C. [address] [place] [phone] 10/11/2024 4:00 PM CDT Comprehensive Visit Department of Dermatology in [place], [place] [address] [place] [phone] Parul Martinez M.D. [address] [place] [phone] 10/12/2024 8:00 AM CDT Telemedicine [facility], [place] for Transplantation and Clinical Regeneration in [place], [place] [address] [place] [address] Ervin Mckeon D.O. [address] [place] [phone] 11/01/2024 2:15 PM CDT Appointment Division of Pulmonary Medicine in [place], [place] [address] [place] [phone] Edgar Montgomery M.B.B.S., M.S. [address] [place] [phone] documented as of this encounter Visit Diagnoses Not on filedocumented in this encounter Additional Health Concerns Infection Onset Date Last Indicated Resolved Time Protective Environment 10/10/2022 10/10/2022 Assessment Noted Time PHQ-9 Depression Total Score: 4 08/12/19 25 3:31 PM CDT documented as of this encounter Care Teams Bridge Toll Collector Relationship Specialty Start Date End Date Ana Red MPAS, P.A.-C. [address] [place] [phone] PCP - General Internal Medicine 12/01/21 [facility] 08/25/21 documented as of this encounter
[2024-09-14 01:45] VITALS: O2SAT 99
[2024-09-14 02:07] VITALS: BP 125/74; PULSE 90; RESP 18; TEMP 36.8; O2SAT 99
[2024-09-14 02:09] VITALS: BP 125/74; PULSE 90; RESP 18; TEMP 36.8
--- NOTE | 2024-09-14 02:35 | ED.ABDPAIN ---
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 She is currently suffering some rejection and is getting and infusion at [facility] through a PICC line regularly. She has follow-up scheduled. She has chronic abdominal pain and the etiology of this has never been fully determined. She will be starting the [facility]'s three week intensive Pain program in 2-3 weeks. She generally takes Dilaudid 2 mg t.i.d. for her left lower quadrant pain but for the past 1-2 days that has not been managing things adequately. She has some nausea but no vomiting. No recent abdominal injury. She was just at [facility] yesterday and had labs and imaging done. Related Data Home Medications ?Medication ?Instructions ?Recorded ?Confirmed levonorgestrel (Mirena) 1 device intrauterine ONCE 09/04/24 09/14/24 tacrolimus 1 mg capsule, 2 mg PO BID 09/04/24 09/14/24 immediate-release trazodone 50 mg tablet 50 - 150 mg PO QHS PRN 09/04/24 09/14/24 insulin aspart U-100 100 unit/mL subcut 09/14/24 (3 mL) subcutaneous pen (Novolog FlexPen U-100 Insulin aspart) insulin glargine 100 unit/mL (3 unit subcut 09/14/24 mL) subcutaneous pen (Lantus Solostar U-100 Insulin) pregabalin 75 mg capsule 75 mg PO BID 09/14/24 09/14/24 valganciclovir 450 mg tablet 900 mg PO DAILY 09/14/24 09/14/24 Previous Rx's ?Medication ?Instructions ?Recorded cyclobenzaprine 5 mg tablet 5 mg PO QDAY PRN muscle spasm #15 01/09/22 tabs cholecalciferol (vitamin D3) 10 10 mcg PO QDAY #30 caps 01/16/22 mcg (400 unit) capsule hydromorphone 2 mg tablet 2 mg PO TID PRN pain #30 tabs 09/04/24 ondansetron 8 mg disintegrating 8 mg PO TID PRN nausea and 09/04/24 tablet vomiting #60 tabs hydromorphone 2 mg tablet 2 mg PO Q6H PRN pain #30 tabs 09/14/24 (Dilaudid) Allergies Allergy/AdvReac Type Severity Reaction Status Date / Time ketorolac Allergy Severe Vomiting Verified 09/14/24 00:58 tramadol Allergy Severe Vomiting Verified 09/14/24 00:58 azithromycin Allergy Unknown Vomiting Verified 09/14/24 00:58 gabapentin Allergy Unknown Uncoded 09/04/24 10:34 Review of Systems Narrative Review of systems is significant for chronic abdominal pain and some rejection of her transplanted liver. Other than that she has no other positive findings. [facility] Medical History (Updated 09/14/24 @ 02:00 by Ervin Schroeder MD) Chronic abdominal pain ?R10.9 - Unspecified abdominal pain (ICD-10) ?G89.29 - Other chronic pain (ICD-10) Chronic nausea ?R11.0 - Nausea (ICD-10) Vitamin D deficiency ?E55.9 - Vitamin D deficiency, unspecified (ICD-10) Tobacco abuse ?Z72.0 - Tobacco use (ICD-10) Chronic leg pain ?M79.606 - Pain in leg, unspecified (ICD-10) ?G89.29 - Other chronic pain (ICD-10) Stage 4 chronic kidney disease ?N18.4 - Chronic kidney disease, stage 4 (severe) (ICD-10) Restless legs syndrome ?G25.81 - Restless legs syndrome (ICD-10) Pyelonephritis ?N12 - Tubulo-interstitial nephritis, not specified as acute or chronic (ICD-10) Patent foramen ovale (03/2020) ?Q21.1 - Atrial septal defect (ICD-10) Malpositioned intrauterine device (IUD) ?T83.32XA - Displacement of intrauterine contraceptive device, initial encounter (ICD-10) Insomnia ?G47.00 - Insomnia, unspecified (ICD-10) History of migraine ?Z86.69 - Personal history of other diseases of the nervous system and sense organs (ICD-10) Hepatic neuropathy ?K76.9 - Liver disease, unspecified (ICD-10) ?G99.0 - Autonomic neuropathy in diseases classified elsewhere (ICD-10) Hepatic encephalopathy ?K72.90 - Hepatic failure, unspecified without coma (ICD-10) Hepatic cirrhosis ?K74.60 - Unspecified cirrhosis of liver (ICD-10) Generalized anxiety disorder with panic attacks ?F41.1 - Generalized anxiety disorder (ICD-10) ?F41.0 - Panic disorder [episodic paroxysmal anxiety] (ICD-10) Gastroesophageal reflux disease without esophagitis (04/16/19) ?K21.9 - Gastro-esophageal reflux disease without esophagitis (ICD-10) Congenital QT prolongation on electrocardiography (01/30/21) ?I45.81 - Long QT syndrome (ICD-10) Chronic pancreatitis (01/23/21) ?K86.1 - Other chronic pancreatitis (ICD-10) Attention deficit hyperactivity disorder (ADHD) ?F90.9 - Attention-deficit hyperactivity disorder, unspecified type (ICD-10) Anemia in chronic kidney disease ?N18.9 - Chronic kidney disease, unspecified (ICD-10) ?D63.1 - Anemia in chronic kidney disease (ICD-10) Allergic rhinitis ?J30.9 - Allergic rhinitis, unspecified (ICD-10) Abdominal ascites ?R18.8 - Other ascites (ICD-10) Surgical History Status post hardware removal (06/27/19) ?Z98.890 - Other specified postprocedural states (ICD-10) History of foot surgery ?Z98.890 - Other specified postprocedural states (ICD-10) Family History Father Hyperlipidemia Maternal Grandfather High blood pressure Prostate cancer Other Type 2 diabetes mellitus Social History (Updated 09/04/24 @ 11:22 by Chhaya Sifuentes) Narrative: marijuana use single, no kids, Олег Ochoa, smoker, sober x 1 year What is your current living situation?: I presently have a place to live Problems where you live: no known problems In the past 12 months, utilities in danger of being shut off: no In past 12 months, lack of transportation kept you from medical appts, meetings, work, or getting things needed for daily living: no In the past 12 mos, have been you worried that your food would run out before you had money to buy more?: never true In the past 12 mos, the food you bought just didn't last and you didn't have money to buy more?: never true Smoking Status: Former smoker Do you use any of these nicotine containing products: None Second hand tobacco smoke exposure: No How often do you have a drink containing alcohol: never AUDIT-C Alcohol total score: 0 Non-prescribed substance use: marijuana (any form) How often does anyone, including family, friends and others, physically hurt you: never How often does anyone, including family, friends and others, insult or talk down to you: never How often does anyone, including family, friends and others, threaten you with harm: never How often does anyone, including family, friends and others, scream or curse at you: never service: No Exam Narrative: Exam Narrative: Vitals noted. HEENT: Conjunctiva clear. Tympanic membranes are pearly white bilaterally. Posterior pharynx is clear without erythema or exudate. Neck is supple without adenopathy, thyromegaly, carotid bruit. Lungs: Clear to auscultation in all zarco. No wheezes, rales, rhonchi. Heart: Regular rate and rhythm without murmur. Abdomen: Soft with left mid abdominal pain. No guarding, rigidity, rebound. Bowel sounds are normal. No palpable masses. Extremities: No cyanosis or edema. Good distal pulses. Skin: No abnormalities noted of the exposed skin. Neurologic: Awake, alert, fully oriented. Neurologic exam is nonfocal. Const: Vital Signs, click to edit/add: Vital Signs - 24 hr 09/14/24 00:54 09/14/24 01:45 09/14/24 02:07 Temperature 98.2 F 98.2 F Pulse Rate [Right Pulse Oximeter] 100 90 Respiratory Rate 18 18 Blood Pressure [Ri ght Upper Arm] 138/95 H 125/74 Pulse Oximetry 99 99 99 Oxygen Delivery Me thod Room Air Room Air 09/14/24 02:09 Temperature 98.2 F Pulse Rate [Right Pulse Oximeter] 90 Respiratory Rate 18 Blood Pressure [Ri ght Upper Arm] 125/74 Pulse Oximetry Oxygen Delivery Me thod Course Course ED Course: Patient was seen and examined. She has a benign abdomen. She just had a CT of her abdomen yesterday this did not show pulmonary embolism the of but did show chronic splenomegaly cut, chronic pancreatitis, chronic hepatic steatosis. No explanation for her abdominal pain. She had labs done as well and her CBC was unremarkable. Basic metabolic panel was normal other than a glucose of 415. BUN is 10 with creatinine of 0.53. AST is 55, ALT is 231, alk-phos is 354. Reevaluation(s) Reevaluation #1: She is given Dilaudid 2 mg IV with good relief of her pain. She is discharged home in the care of her . I did give her four tablets of oxycodone 5 mg out of our [employer] machine. Her Dilaudid is also refilled at the pharmacy. She has a planned and triggered [facility]'s three-week Pain program in two or three weeks. Vital Signs Vital signs: Initial Vital Signs Temperature 98.2 F 09/14/24 00:54 Temperature Source Temporal Artery Scan 09/14/24 00:54 Pulse Rate 100 09/14/24 00:54 Respiratory Rate 18 09/14/24 00:54 Blood Pressure 138/95 H 09/14/24 00:54 Blood Pressure Mean 109 H 09/14/24 00:54 Blood Pressure Position Sitting 09/14/24 00:54 Pulse Oximetry 99 09/14/24 00:54 Oxygen Delivery Method Room Air 09/14/24 00:54 Vital Signs Temperature 98.2 F 09/14/24 00:54 Pulse Rate 100 09/14/24 00:54 Respiratory Rate 18 09/14/24 00:54 Blood Pressure 138/95 H 09/14/24 00:54 Pulse Oximetry 99 09/14/24 00:54 Oxygen Delivery Method Room Air 09/14/24 00:54 Temperature 98.2 F 09/14/24 02:09 Pulse Rate 90 09/14/24 02:09 Respiratory Rate 18 09/14/24 02:09 Blood Pressure 125/74 09/14/24 02:09 Pulse Oximetry 99 09/14/24 02:07 Oxygen Delivery Method Room Air 09/14/24 02:07 Medications Administered Medications: Discontinued Medications Generic Name Dose Route Start Last Admin Trade Name Freq PRN Reason Stop Dose Admin Hydromorphone HCl 2 mg 09/14/24 01:18 09/14/24 01:24 Hydromorphone 0.5 Mg/0.5 Ml Inj IVP 09/14/24 01:19 2 mg ONCE ONE Administration MDM - Abdominal Pain Lab Data Labs: Lab Results 05/15/25 Range/Units 00:58 Urine Color Yellow (Yellow) Urine Appearance Clear (Clear) Urine pH 6.5 (5.0-8.5) Ur Specific [place] 1.010 (1.000-1.030) Urine Protein Negative (Negative) Urine Glucose (UA) 3+ A (Negative) Urine Ketones 2+ A (Negative) Urine Blood Negative (Negative) Urine Nitrite Negative (Negative) Urine Bilirubin Negative (Negative) Urine Urobilinogen 0.2 (0.2-1.0) Ur Leukocyte Esterase Negative (Negative) Urine RBC 0-2 (0-2) Urine WBC 0-2 (0-5) Ur Squamous Epith Cells None (None-Few) Urine Bacteria None (None) Discharge Plan Discharge Clinical Impression: Chronic abdominal pain Patient Disposition: Home, Self-Care Condition: Improved Additional Instructions: Continue current meds and plan for follow up at [facility]. Oxycodone 5-10 mg every 4 hours tonight. Your Dilaudid has been refilled. Prescriptions: New hydromorphone [Dilaudid] 2 mg tablet 2 mg PO Q6H PRN (Reason: pain) Qty: 30 0RF No Action Mirena 21 mcg/24hr (up to 8 yrs) 52 mg intrauterine device 1 device intrauterine ONCE Rx Instructions: as a single dose trazodone 50 mg tablet 50 - 150 mg PO QHS PRN ondansetron 8 mg tablet,disintegrating 8 mg PO TID PRN (Reason: nausea and vomiting) Qty: 60 2RF hydromorphone 2 mg tablet 2 mg PO TID PRN (Reason: pain) Qty: 30 0RF tacrolimus 1 mg capsule 2 mg PO BID valganciclovir 450 mg tablet 900 mg PO DAILY insulin aspart U-100 [Novolog FlexPen U-100 Insulin] 100 unit/mL (3 mL) insulin pen subcut pregabalin 75 mg capsule 75 mg PO BID insulin glargine [Lantus Solostar U-100 Insulin] 100 unit/mL (3 mL) insulin pen subcut cyclobenzaprine 5 mg tablet 5 mg PO QDAY PRN (Reason: muscle spasm) Qty: 15 0RF cholecalciferol (vitamin D3) 10 mcg (400 unit) capsule 10 mcg PO QDAY Qty: 30 0RF Follow Up/Referrals: Ervin Schroeder MD [Primary Care Provider] - Stand Alone Forms: [facility] Info Instructions
== END 2024-09-14 02:46 | disposition home or self-care (01) ==
PROVIDERS: Emergency Provider Family Medicine; PCP Family Medicine
DX: R10.32 Left lower quadrant pain (principal)
CPT/HCPCS: 81001; 94761; 96374; 99282; 99283; J1171

== ENCOUNTER 2024-09-22 08:38 | Emergency (ER) | payer BC, SELFPAY ==
[2024-09-22] VITALS (31 sets, daily range): BP systolic 97–110; BP diastolic 55–76; PULSE 98–126; RESP 16–22; TEMP 36.9–37.1; O2SAT 94–99; BMI 23.2
--- NOTE | 2024-09-22 09:05 | CRLHL7_ITS ---
For Patients: As a result of the Century Cures Act, medical imaging exams and procedure reports are released immediately into your electronic medical record. You may view this report before your referring provider. If you have questions, please contact your health care provider. INDICATION: ABD PAIN TECHNIQUE: CT of the abdomen and pelvis was obtained with 56 mL of Isovue 370 intravenous contrast. Please note that all CT scans at this facility use dose modulation, iterative reconstruction, and/or weight-based dosing when appropriate to reduce radiation dose to as low as reasonably achievable. COMPARISON: 01/31/2022 FINDINGS: Lower thorax: Normal. Liver and biliary tree: Density is seen near the caudate, which may represent postsurgical material. Gallbladder: Status post cholecystectomy. Spleen: Enlarged, measuring 13.0 centimeter (2/29). Pancreas: Coarse calcifications. Adrenal glands: Normal. Kidneys and ureters: No hydronephrosis or obstructing renal calculi. 3 millimeter nonobstructing left renal calculus (2/40). Gastrointestinal tract: Moderate stool burden. No evidence of acute appendicitis. No evidence of bowel obstruction. Peritoneal cavity: Normal. Bladder: Normal. Pelvic organs: 1.2 centimeter right adnexal cystic lesion is favored to be physiologic (2/112). Intrauterine device is seen within the uterus. Vasculature: Normal. Lymph nodes: Normal. Abdominal wall: Trace fat containing periumbilical hernia. Musculoskeletal: Mild chronic appearing compression deformities are seen throughout the lower thoracic and lumbar spine. IMPRESSION: 1. Splenomegaly. 2. Coarse pancreatic calcifications, which may represent chronic pancreatitis. 3. Moderate stool burden. Please note that all CT scans at this facility use dose modulation, iterative reconstruction, and/or weight-based dosing when appropriate to reduce radiation dose to as low as reasonably achievable. Dictated by Dung Henry MD @ 09/22/2024 10:51:26 AM (Electronically Signed)
[2024-09-22] MEDS: HYDROmorphone 0.5 mg/0.5 ml inj IVP ×6 (09:30→19:03)
[2024-09-22] MEDS: 0.9 % SODIUM CHLORIDE 1000 ml 1,000 ML IV (09:30)
[2024-09-22 09:43] LABS: Lactate* 1.3 mmol/L (0.5-1.9)
[2024-09-22 09:47] LABS: Basophils Absolute Auto 0.03 K/uL (0.00-0.30); Basophils Percent Auto 0.4 % (0.0-3.0); Eosinophils Absolute Auto 0.03 K/uL (0.00-0.50); Eosinophils Percent Auto 0.4 % (0.0-7.0); Hematocrit 39.6 % (33.0-51.0); Hemoglobin* 13.6 gm/dL (12.0-16.0); Immature Granulocytes Abs Auto 0.02 K/uL (0.00-0.30); Immature Granulocytes Pct Auto 0.2 %; Lymphocytes Percent Auto 11.9 % (20-44); Mean Corpuscular HGB Conc 34 gm/dL (32-36); Mean Corpuscular Hemoglobin 30 pg (26-34); Mean Corpuscular Volume 87 fL (80-100); Monocytes Percent Auto 4.9 % (0.0-11.0); Neutrophils Percent Auto 82.2 % (42.0-72.0); Platelet Count* 158 K/uL (140-440); RDW Coefficient of Variation % 13.4 % (11.5-15.5); Red Blood Count 4.56 m/uL (4.00-5.20); White Blood Count* 8.12 K/uL (4.50-11.00)
[2024-09-22 09:48] LABS: Slide Review Reflex No
[2024-09-22 10:05] LABS: Albumin* 3.6 g/dL (3.3-5.0); Chloride* 101 mmol/L (96-114); Sodium* 131 mmol/L (135-149)
[2024-09-22 10:08] LABS: Alanine Aminotransferase* 354 U/L (4-35); Alkaline Phosphatase* 373 U/L (40-150); Anion Gap 5 mEq/L (7-15); Aspartate Amino Transferase* 224 U/L (12-35); Bilirubin Total* 3.2 mg/dL (0.1-1.5); Blood Urea Nitrogen* 8 mg/dL (5-24); Calcium* 8.9 mg/dL (8.4-10.6); Carbon Dioxide* 25 mmol/L (20-32); Creatinine* 0.4 mg/dL (0.5-1.5); Est. Creatinine Clearance* 163.19; Estimated Glomerular Filt Rate 133 ml/min; Glucose* 282 mg/dL (60-115); Lipase* 10 U/L (23-300); Total Protein* 6.3 g/dL (6.0-8.3)
[2024-09-22 10:37] LABS: Appearance Urine Clear (Clear); Bilirubin Urine 1+ (Negative); Blood Urine Negative (Negative); Color Urine Yellow (Yellow); Glucose Urine 3+ (Negative); Ketones Urine 1+ (Negative); Leukocyte Esterase Urine Negative (Negative); Nitrite Urine Negative (Negative); Protein Urine Negative (Negative)
--- NOTE | 2024-09-22 12:14 | ED_ITS ---
HPI - Abdominal Pain General Chief Complaint: Abdominal Pain Stated Complaint: nausea- vomit Time Seen by Provider: 09/22/24 09:02 History of Present Illness HPI narrative: Patient is a 34-year-old woman who had liver transplant 2 years ago. She has been having increased right upper quadrant pain and actually had a biopsy at [place] yesterday. Patient has not been drinking alcohol but has been known to be noncompliant with her anti rejection medications. Patient presents today with s evere right upper quadrant pain. She has had vomiting weakness general malaise. She states she has been taking her medications. She does not have the results of her biopsy from yesterday. She has had no localize fevers no palpitations no chest pain no shortness of breath. Patient is unable to keep the pain under control with oral hydromorphone. Related Data Home Medications ?Medication ?Instructions ?Recorded ?Confirmed levonorgestrel (Mirena) 1 device intrauterine ONCE 0 09/04/24 09/22/24 tacrolimus 1 mg capsule, 2 mg PO BID 09/04/24 5 immediate-release trazodone 50 mg tablet 50 - 150 mg PO QHS PRN 09/0409/22/24 insulin aspart U-100 100 unit/mL 1 sliding scale dose subcut 09/14/24 (3 mL) subcutaneous pen (Novolog FlexPen U-100 Insulin aspart) insulin glargine 100 unit/mL (3 8 unit subcut 09/14/24 mL) subcutaneous pen (Lantus Solostar U-100 Insulin) pregabalin 75 mg capsule 75 mg PO BID 09/14/24 valganciclovir 450 mg tablet 900 mg PO DAILY 09/14/24 09/22/24 Previous Rx's ?Medication ?Instructions ?Recorded cholecalciferol (vitamin D3) 10 10 mcg PO QDAY #30 cap s 01/16/22 mcg (400 unit) capsule hydromorphone 2 mg tablet 2 mg PO TID PRN pain #30 tab s 09/04/24 ondansetron 8 mg disintegrating 8 mg PO TID PRN nausea and 09/04/24 tablet vomiting #60 tabs hydromorphone 2 mg tablet 2 mg PO Q6H PRN pain #30 tab s 09/14/24 (Dilaudid) Allergies Allergy/AdvReac Type Severity Reaction Status Date / Time ketorolac Allergy Severe Vomiting Verified 09/22/24 08:50 tramadol Allergy Severe Vomiting Verified 09/22/24 08:50 azithromycin Allergy Unknown Vomiting Verified 09/22/24 08:50 gabapentin Allergy Verified 09/22/24 08:50 Review of Systems Status of ROS Reports: 10 or more systems reviewed and unremarkable except as noted in History and below [facility] Medical History Type 2 diabetes mellitus, with long-term current use of insulin ?E11.9 - Type 2 diabetes mellitus without complications (ICD-10) ?Z79.4 - terminal operator (current) use of insulin (ICD-10) COVID ?U07.1 - COVID-19 (ICD-10) Chronic abdominal pain ?R10.9 - Unspecified abdominal pain (ICD-10) ?G89.29 - Other chronic pain (ICD-10) Chronic nausea ?R11.0 - Nausea (ICD-10) Vitamin D deficiency ?E55.9 - Vitamin D deficiency, unspecified (ICD-10) Tobacco abuse ?Z72.0 - Tobacco use (ICD-10) Chronic leg pain ?M79.606 - Pain in leg, unspecified (ICD-10) ?G89.29 - Other chronic pain (ICD-10) Stage 4 chronic kidney disease ?N18.4 - Chronic kidney disease, stage 4 (severe) (ICD-10) Restless legs syndrome ?G25.81 - Restless legs syndrome (ICD-10) Pyelonephritis ?N12 - Tubulo-interstitial nephritis, not specified as acute or chronic (ICD- 10) Patent foramen ovale (03/2020) ?Q21.1 - Atrial septal defect (ICD-10) Malpositioned intrauterine device (IUD) ?T83.32XA - Displacement of intrauterine contraceptive device, initial encounter (ICD-10) Insomnia ?G47.00 - Insomnia, unspecified (ICD-10) History of migraine ?Z86.69 - Personal history of other diseases of the nervous system and sense organs (ICD-10) Hepatic neuropathy ?K76.9 - Liver disease, unspecified (ICD-10) ?G99.0 - Autonomic neuropathy in diseases classified elsewhere (ICD-10) Hepatic encephalopathy ?K72.90 - Hepatic failure, unspecified without coma (ICD-10) Hepatic cirrhosis ?K74.60 - Unspecified cirrhosis of liver (ICD-10) Generalized anxiety disorder with panic attacks ?F41.1 - Generalized anxiety disorder (ICD-10) ?F41.0 - Panic disorder [episodic paroxysmal anxiety] (ICD-10) Gastroesophageal reflux disease without esophagitis (04/16/19) ?K21.9 - Gastro-esophageal reflux disease without esophagitis (ICD-10) Congenital QT prolongation on electrocardiography (01/30/21) ?I45.81 - Long QT syndrome (ICD-10) Chronic pancreatitis (01/23/21) ?K86.1 - Other chronic pancreatitis (ICD-10) Attention deficit hyperactivity disorder (ADHD) ?F90.9 - Attention-deficit hyperactivity disorder, unspecified type (ICD-10) Anemia in chronic kidney disease ?N18.9 - Chronic kidney disease, unspecified (ICD-10) ?D63.1 - Anemia in chronic kidney disease (ICD-10) Allergic rhinitis ?J30.9 - Allergic rhinitis, unspecified (ICD-10) Abdominal ascites ?R18.8 - Other ascites (ICD-10) Surgical History Status post hardware removal (06/27/19) ?Z98.890 - Other specified postprocedural states (ICD-10) History of foot surgery ?Z98.890 - Other specified postprocedural states (ICD-10) Family History Father Hyperlipidemia Maternal Grandfather High blood pressure Prostate cancer Other Type 2 diabetes mellitus Social History Narrative: marijuana use single, no kids, Оелг Ochoa, smoker, sober x 1 year What is your current living situation?: I presently have a place to live Problems where you live: no known problems In the past 12 months, utilities in danger of being shut off: no In past 12 months, lack of transportation kept you from medical appts, meetings, work, or getting things needed for daily living: no In the past 12 mos, have been you worried that your food would run out before you had money to buy more?: never true In the past 12 mos, the food you bought just didn't last and you didn't have money to buy more?: never true Smoking Status: Former smoker Do you use any of these nicotine containing products: None Second hand tobacco smoke exposure: No How often do you have a drink containing alcohol: never AUDIT-C Alcohol total score: 0 Non-prescribed substance use: marijuana (any form) How often does anyone, including family, friends and others, physically hurt you : never How often does anyone, including family, friends and others, insult or talk down to you: never How often does anyone, including family, friends and others, threaten you with harm: never How often does anyone, including family, friends and others, scream or curse at you: never service: No Exam Narrative: Exam Narrative: EXAM GENERAL: Patient appears chronically ill. EYES: No scleral icterus. LYMPH: No supraclavicular or cervical lymphadenopathy. SKIN: Visible skin seen during exam normal or with benign process only. EXT: No dependent lower extremity pedal edema. HEART: Regular rate and rhythm with no murmurs, rubs, or gallops. LUNGS: Clear to auscultation bilaterally with no crackles or wheezes. ABD: Soft, non tender, non distended. PSYCH: Good eye contact, speech is not pressured. Const: Vital Signs, click to edit/add: Vital Signs - 24 hr 09/22/24 08:43 09/22/24 08:54 09/22/24 09:00 Temperature 98.8 F Pulse Rate 106 H 115 H Pulse Rate [Pulse Oximeter] 126 H Respiratory Rate 22 Blood Pressure Blood Pressure [Ri ght Upper Arm] 108/76 Pulse Oximetry 98 97 98 Oxygen Delivery Me thod Room Air 09/22/24 09:01 09/22/24 09:30 09/22/24 09:34 Temperature Pulse Rate 112 H 110 H 100 Pulse Rate [Pulse Oximeter] Respiratory Rate Blood Pressure 99/72 103/63 Blood Pressure [Ri ght Upper Arm] Pulse Oximetry 97 95 96 Oxygen Delivery Me thod 09/22/24 09:35 09/22/24 10:00 09/22/24 10:02 Temperature Pulse Rate 104 H 101 H 100 Pulse Rate [Pulse Oximeter] Respiratory Rate 16 Blood Pressure 102/65 Blood Pressure [Ri ght Upper Arm] Pulse Oximetry 95 94 94 Oxygen Delivery Me thod 09/22/24 10:34 Temperature Pulse Rate 104 H Pulse Rate [Pulse Oximeter] Respiratory Rate Blood Pressure Blood Pressure [Ri ght Upper Arm] Pulse Oximetry 97 Oxygen Delivery Me thod Course Course ED Course: Patient seen and examined. Liver function tests are noted to be elevated. CT is nonacute of the abdomen and pelvis. I did call and visit with hepatology at [facility]. It is known to them that the patient is often times noncompliant with medication. Patient accepted as a transfer with no further intervention at this time other than symptomatic control. Patient will be transferred via ALS ambulance. Vital Signs Vital signs: Initial Vital Signs Temperature 98.8 F 09/22/24 08:43 Temperature Source Temporal Artery Scan 09/22/24 08:43 Pulse Rate 126 H 09/22/24 08:43 Pulse Rhythm Regular 09/22/24 08:43 Respiratory Rate 22 09/22/24 08:43 Blood Pressure 108/76 09/22/24 08:43 Blood Pressure Mean 86 09/22/24 08:43 Blood Pressure Position Supine 09/22/24 08:43 Pulse Oximetry 98 09/22/24 08:43 Oxygen Delivery Method Room Air 09/22/24 08:43 Vital Signs Temperature 98.8 F 09/22/24 08:43 Pulse Rate 126 H 09/22/24 08:43 Respiratory Rate 22 09/22/24 08:43 Blood Pressure 108/76 09/22/24 08:43 Pulse Oximetry 98 09/22/24 08:43 Oxygen Delivery Method Room Air 09/22/24 08:43 Temperature 98.8 F 09/22/24 08:43 Pulse Rate 104 H 09/22/24 10:34 Respiratory Rate 16 09/22/24 10:02 Blood Pressure 102/65 09/22/24 10:02 Pulse Oximetry 97 09/22/24 10:34 Oxygen Delivery Method Room Air 09/22/24 08:43 Medications Administered Medications: Discontinued Medications Generic Name Dose Route Start Last Admin Trade Name Freq PRN Reason Stop Dose Admin Hydromorphone HCl 0.5 mg 09/22/24 09:06 09/22/24 09:30 Hydromorphone 0.5 Mg/0.5 Ml Inj IVP 09/22/24 09:07 0.5 mg ONCE ONE Administration Hydromorphone HCl 0.5 mg 09/22/24 10:25 09/22/24 10:34 Hydromorphone 0.5 Mg/0.5 Ml Inj IVP 09/22/24 10:26 0.5 mg ONCE ONE Administration Sodium Chloride 1,000 mls @ 1,000 mls/hr 09/22/24 09:06 09/22/24 09:30 0.9 % Sodium Chloride 1000 Ml IV 09/22/24 10:05 1,000 mls/hr .Q1H [place] Administration MDM - Abdominal Pain Lab Data Labs: Lab Results 09/22/24 09/22/24 Range/Units 09:30 Unknown WBC 8.12 (4.50-11.00) K/uL RBC 4.56 (4.00-5.20) m/uL Hgb 13.6 (12.0-16.0) gm/dL Hct 39.6 (33.0-51.0) % MCV 87 (80-100) fL MCH 30 (26-34) pg MCHC 34 (32-36) gm/dL RDW Coeff of Yamileth 13.4 (11.5-15.5) % Plt Count 158 (140-440) K/uL Neut % (Auto) 82.2 H (42.0-72.0) % Lymph % (Auto) 11.9 L (20-44) % Benzie % (Auto) 4.9 (0.0-11.0) % Eos % (Auto) 0.4 (0.0-7.0) % Baso % (Auto) 0.4 (0.0-3.0) % Neut # (Auto) 6.70 (1.7-7.0) K/uL Lymph # (Auto) 1.00 (0.90-2.90) K/uL Benzie # (Auto) 0.40 (0.00-0.90) K/UL Eos # (Auto) 0.03 (0.00-0.50) K/uL Baso # (Auto) 0.03 (0.00-0.30) K/uL Abs Immat Gran (auto) 0.02 (0.00-0.30) K/uL Imm/Tot Granulo (auto) 0.2 % Sodium 131 L (135-149) mmol/L Potassium 4.0 (3.6-5.1) mmol/L Chloride 101 (96-114) mmol/L Carbon Dioxide 25 (20-32) mmol/L Anion Gap 5 L (7-15) mEq/L BUN 8 (5-24) mg/dL Creatinine 0.4 L (0.5-1.5) mg/dL Estimated Creat Clear 163.19 Estimated GFR 133 ml/min Glucose 282 H (60-115) mg/dL Lactate 1.3 (0.5-1.9) mmol/L Calcium 8.9 (8.4-10.6) mg/dL Total Bilirubin 3.2 H (0.1-1.5) mg/dL AST 224 H (12-35) U/L ALT 354 H (4-35) U/L Alkaline Phosphatase 373 H (40-150) U/L Total Protein 6.3 (6.0-8.3) g/dL Albumin 3.6 (3.3-5.0) g/dL Lipase 10 L (23-300) U/L Urine Color Yellow (Yellow) Urine Appearance Clear (Clear) Urine pH 7.0 (5.0-8.5) Ur Specific [place] 1.010 (1.000-1.030) Urine Protein Negative (Negative) Urine Glucose (UA) 3+ A (Negative) Urine Ketones 1+ A (Negative) Urine Blood Negative (Negative) Urine Nitrite Negative (Negative) Urine Bilirubin 1+ A (Negative) Urine Urobilinogen 2.0 A (0.2-1.0) Ur Leukocyte Esterase Negative (Negative) Discharge Plan Discharge Clinical Impression: Chronic liver failure Patient Disposition: [facility] Condition: Stable Instructions: Acute Liver Failure (DC) Activity Level: No Restrictions Prescriptions: No Action Mirena 21 mcg/24hr (up to 8 yrs) 52 mg intrauterine device 1 device intrauterine ONCE Rx Instructions: as a single dose trazodone 50 mg tablet 50 - 150 mg PO QHS PRN ondansetron 8 mg tablet,disintegrating 8 mg PO TID PRN (Reason: nausea and vomiting) Qty: 60 2RF hydromorphone 2 mg tablet 2 mg PO TID PRN (Reason: pain) Qty: 30 0RF tacrolimus 1 mg capsule 2 mg PO BID valganciclovir 450 mg tablet 900 mg PO DAILY insulin aspart U-100 [Novolog FlexPen U-100 Insulin] 100 unit/mL (3 mL) insulin pen 1 sliding scale dose subcut pregabalin 75 mg capsule 75 mg PO BID insulin glargine [Lantus Solostar U-100 Insulin] 100 unit/mL (3 mL) insulin pen 8 unit subcut hydromorphone [Dilaudid] 2 mg tablet 2 mg PO Q6H PRN (Reason: pain) Qty: 30 0RF cholecalciferol (vitamin D3) 10 mcg (400 unit) capsule 10 mcg PO QDAY Qty: 30 0RF Stand Alone Forms: MyHealth Info Instructions
[2024-09-22] MEDS: ONDANSETRON 2 MG/ML inj 4 MG IVP (12:35)
--- NOTE | 2024-09-23 05:42 | PC.NURSE ---
in patients chart to print blood culture report to fax to [facility] where patient was transfered to
== END 2024-09-22 19:07 | disposition short-term general hospital (02) ==
PROVIDERS: Emergency Provider Internal Medicine; PCP Family Medicine
DX: K72.10 Chronic hepatic failure without coma (principal)
CPT/HCPCS: 36415; 74177; 80053; 81003; 83605; 83690; 85025; 87040; 87181; 87186; 87800; 96374; 96375; 96376; 99284; J1171; J2405; J7030; Q9967

== ENCOUNTER 2024-09-22 19:00 | Outpatient (CLI) | payer BC, SELFPAY | END 2024-09-22 19:01 | disposition home or self-care (01) | LOC: AMB 09-29 09:13 | PROVIDERS: PCP Family Medicine; Visit Provider Family Medicine | DX: K72.10 Chronic hepatic failure without coma (principal) | CPT/HCPCS: A0425; A0427 ==

== ENCOUNTER 2024-10-04 05:29 | Emergency (ER) | payer BC, SELFPAY ==
--- OUTSIDE RECORDS SUMMARY | 2021-11-13 04:02 | XMS_ITS | Continuity of Care Document ---
Author Organization [facility] Address [address] [address] [place] [address] Phone Care Team Providers Care Billet Straightener Name Role Phone Evi Pfeiffer Unavailable Unava ilable Allergies, Adverse Reactions, Alerts Substance Reaction Status Criticality azithromycin Nausea/Vomiting Active No Informati on Medications Medication Instructions Dosage Effective Dates (start - stop) Status Comments gabapentin 100 mg capsule take 1 capsule by oral route 3 times every day 100 MG - Active spironolactone 25 mg tablet take 1 tablet by ORAL route every day 25 MG - Active furosemide 20 mg tablet take 1 tablet by oral route every day 20 MG - Active oxycodone 5 mg tablet take 1 tablet by o ral route every day 5 MG - Active lactulose 20 gram/30 mL oral solution take 30 milliliter by oral route every day - Active Procedures Procedure Date New Level 5 Subsqt Hosp-da E&m Stable 15 M 19 Init Inpt Cons New/est Mod-hi 9 Advance Directives Directive Yes / No Effective Date File Name No Information Encounters Encounter Description Practice Location Reason(s) For Visit Diagnoses Date Provider Providers Copied on Encounter [facility], [address] [address], [place], [id number], [place] tel:[phone] [facility] No Information 2 Beth Steve. [address] [facility] [address], [place], [place], [id number], [place]. tel:[phone] [facility], [address] [address], [place], [address], [place] tel:[phone] [facility] No Information 2 2 FerrazDeToled o PA Evi. [address] [facility] [address], [place], [place], [id number], [place]. tel:[phone] [facility], [address] [address], [place], [address], [place] tel:[phone] [facility] Cirrhosis of liver with ascites, unspecified hepatic cirrhosis type 0 2 FerrazDeToled o PA Evi. [address] [facility] [address], [place], [place], [address], [place]. tel:[phone] New Level 5 [facility], [address] [address], [place], [address], [place] tel:[phone] [facility] GI Symptoms or Concerns (chief complaint) Cirrhosis of liver with ascites, unspecified hepatic cirrhosis typeOther ascitesGenerali zed abdominal painAnemia, unspecified type 1 FerrazDeToled o PA Evi. [address] [facility] [address], [place], [address], [place]. tel:[phone] Referring Provider: Ervin Schroeder MD, [address] [place] [address], [address]. tel:[phone] [facility], [address] [address], [place], [address], [place] tel:[phone] [facility] No Information 1 Loulou Sanchez. [address] [facility], [place], [place], [address], [place]. tel:[phone] [facility] E&m Stable 15 M [facility], [address] [address], [place], [address], [place] tel:[phone] [facility] No Information 9 Sheela Aburto. [address] [facility] [address], [place], [address], [place]. tel:[phone] Referring Provider: Criselda Burgos, [address] [facility] [address], [place], [address] . tel:[phone] Init Inpt Cons New/est Mod-hi [facility], [address] [address], [place], [place], [id number], [place] tel:[phone] [facility] No Information 9 Ifeoma Mims. [address] [facility], [place], [place], [address], [place]. tel:[phone] Referring Provider: Felicita GUNDERSON, [address] [facility] [address], [place], [address] . tel:[phone] Family History Family Member Type Diagnosis Age At Onset Father Problem (finding) GERD Immunizations Vaccine Date Status Comments SARS-COV-2 (COVID-19) vaccin e, mRNA, spike protein, LNP, preservative free, 30 mcg/0.3mL dose administered Note: [facility] bi-direct ional interface ; Source: Other Registry SARS-COV-2 (COVID-19) vaccin e, mRNA, spike protein, LNP, preservative free, 30 mcg/0.3mL dose administered Note: [facility] bi-direct ional interface ; Source: Other Registry Afluria Qd administered Note: M [facility] bi-directional interface ; Source: Other Registry tetanus toxoid, reduced diphtheria toxoid, and acellular pertussis vaccine, adsorbed administered Note: [facility] b i-directional interface ; Source: Other Registry Influenza, seasonal, injectable administe red Note: [facility] bi- directional interface ; Source: Other Registry Influenza, seasonal, injectable administe red Note: [facility] bi- directional interface ; Source: Other Registry Influenza, seasonal, injectable administe red Note: [facility] bi- directional interface ; Source: Other Registry Influenza, seasonal, injectable administe red Note: [facility] bi- directional interface ; Source: Other Registry tetanus and diphtheria toxoi ds, adsorbed, preservative free, for adult use (2 Lf of tetanus toxoid and 2 Lf of diphtheria toxoid) administered Note: [facility] bi-direct ional interface ; Source: Other Registry Energix Pediatric administered Note: [facility] bi-directional interface ; Source: Other Registry [employer] Pediatric administered Note: [facility] bi-directional interface ; Source: Other Registry [employer] Pediatric administered Note: [facility] bi-directional interface ; Source: Other Registry diphtheria, tetanus toxoids and acellular pertussis vaccine administered Note: [facility] b i-directional interface ; Source: Other Registry diphtheria, tetanus toxoids and pertussis vaccine administered Note: [facility] bi-direct ional interface ; Source: Other Registry Haemophilus influenzae type b vaccine, conjugate unspecified formulation administered Note: [facility] bi-direct ional interface ; Source: Other Registry measles, mumps and rubella v irus vaccine administered Note: [facility] bi-direct ional interface ; Source: Other Registry Haemophilus influenzae type b vaccine, conjugate unspecified formulation administered Note: [facility] bi-direct ional interface ; Source: Other Registry Haemophilus influenzae type b vaccine, conjugate unspecified formulation administered Note: [facility] bi-direct ional interface ; Source: Other Registry diphtheria, tetanus toxoids and pertussis vaccine administered Note: [facility] bi-direct ional interface ; Source: Other Registry diphtheria, tetanus toxoids and pertussis vaccine administered Note: [facility] bi-direct ional interface ; Source: Other Registry diphtheria, tetanus toxoids and pertussis vaccine administered Note: [facility] bi-direct ional interface ; Source: Other Registry Payers Payer name Insurance type Covered libertarian ID Authoriza tion(s) No Information Social History Type Description Quantity Date Captured Comments Alcohol Use Details Unknown Caffeine Use Details Unknown Tobacco Use Status No Information Smoking Status No Information Sex Female Chief Complaint And Reason For Visit No Information Reason For Referral Reason For Referral No Information Plan Of Treatment Date Type Action Status Referral Ordered: Ultrasound Liver Appointment date/timeframe: 08/02/2021 ordered Referral Ordered: Liver Biopsy With Ultrasound Guidance Appointment date/timeframe: 03/21/2021 ordered Referral Ordered: Paracentesis Abdominal With Ultrasound Guidance Appointment date/timeframe: 04/01/2021 ordered Referral Ordered: referred to Nataliia Hagen MD MPH Transplant Surgery liver transplant evaluation Appointment date/timeframe: 04/07/2021 ordered Referral Ordered: Hepatoma Protocol Appointment date/timeframe: 08/02/2021 ordered History Of Present Illness Encounter Date Complaint History Of Prese nt Illness GI Symptoms or Concerns Catia Carias (Jen) is a 30 year old female who is seen for a tele visit consultation per her primary care provider, Dr. Ervin Stevenson, for cirrhosis with ascites, abdominal pain, and anemia. A total of 40 minutes was spent on the phone with the patient and her mother today with an additional 25 minutes spent on external record look up, review, and documentation for a total of 65 minutes today. They were seen in a private location and consented to a telephone visit today. She reports that over the past month or so she has been struggling with fluid retention in her abdomen and also in her lower extremities for which she has been to the emergency room at multiple different hospitals 3 different times. Review of external records shows that she presented to the emergency room on January 22 for abdominal pain and bloating and she was subsequently transferred to [facility] for admission between January 23 and January 26 for decompensate Functional Status Date Functional Assessmen t No Information Instructions Date Instruction Additional Infor yaz 1. Liver biopsy, if you have recurrence of abdominal fluid you should have a paracentesis the day prior to biopsy2. Paracenteses with albumin replacement as needed3. Continue furosemide 20 mg and spironolactone 25 mg daily for now, if increase needed I would increase spironolactone to 50 mg daily and recheck BMP lab test in 7-10 days after4. High protein and low sodium diet with no fluid restriction5. Referral to the [facility] for liver transplant evaluation6. Eventual EGD and colonoscopy for work up of anemia7. Lactulose daily with one dose, increase as needed8. Follow up visit in 1 month or sooner if needed Related to Anemia, unspecified type Assessments Type Assessment Date No Information Patient Care Teams Name Effective Dates (start - stop) Status Members No Information
--- OUTSIDE RECORDS SUMMARY | 2021-11-13 04:02 | XMS_ITS | Continuity of Care Document ---
Author Organization [facility] Address [address] [address] [place] [address] Phone Care Team Providers Care [employer] Principal Name Role Phone Evi Pfeiffer Unavailable Unava [...] Diagnoses Date Provider Providers Copied on Encounter [facility], [address] [address], [place], [id number], [place] tel:[phone] [facility] No Information 2 Beth Steve. [address] [facility], [facility] [address], [place], [place], [id number], [place]. tel:[phone] [facility], [address] [address], [place], [id number], [place] tel:[phone] [facility] No Information 2 2 FerrazDeToled o PA Evi. [address] [facility], [facility] [address], [place], [place], [id number], [place]. tel:[phone] [facility], [address] [address], [place], [address], [place] tel:[phone] [facility] Cirrhosis of liver with ascites, unspecified hepatic cirrhosis type 0 2 FerrazDeToled o PA Evi. [address] [facility], [facility] [address], [place], [place], [id number], [place]. tel:[phone] New Level 5 [facility], [address] [address], [place], [place], [address], [place] tel:[phone] [facility] GI Symptoms or Concerns (chief complaint) Cirrhosis of liver with ascites, unspecified hepatic cirrhosis typeOther ascitesGenerali zed abdominal painAnemia, unspecified type 1 FerrazDeToled o PA Evi. [address] [facility], [facility] [address], [place], [address], [place]. tel:[phone] Referring Provider: Ervin Schroeder MD, [address] [place] [address], [address]. tel:[phone] [facility], [address] [address], [place], [address], [place] tel:[phone] [facility] No Information 1 Loulou Sanchez. [address] [facility], [facility] [address], [place], [place], [address], [place]. tel:[phone] Subst [facility]- E&m Stable 15 M [facility], [address] [address], [place], [address], [place] tel:[phone] [facility] No Information 9 Sheela Aburto. [address] [facility], [facility] [address], [place], [id number], [place]. tel:[phone] Referring Provider: Criselda Burgos, [address] [facility] [address], [place], [address] . tel:[phone] Init Inpt Cons New/est Mod-hi [facility], [address] [address], [place], [place], [id number], [place] tel:[phone] [facility] No Information 9 Ifeoma Mims. [address] [facility], [facility] [address], [place], [place], [address], [place]. tel:[phone] Referring Provider: Felicita GUNDERSON, [address] [facility] [address], [place], [address] . tel:[phone] Family History Family Member Type Diagnosis Age [...] Registry Payers Payer name Insurance type Covered constitution party ID Authoriza tion(s) No Information Social History [...] bloating and she was subsequently transferred to [facility] for admission between January 23 and [...] with no fluid restriction5. Referral to the [facility] for liver transplant evaluation6. Eventual EGD and colonoscopy for work up of anemia7. Lactulose daily with one dose, increase as needed8. Follow up visit in 1 month or sooner if needed Related to Anemia, unspecified type Assessments Type Assessment Date No Information Patient Care Teams Name Effective Dates (start - stop) Status Members No Information
--- OUTSIDE RECORDS SUMMARY | 2024-08-21 18:26 | XMS_ITS | Encounter Summary ---
Author Organization [facility] Address [address] [place] [id number] Care Team Providers Care Rice Farmer Name Role Phone Ana Red P.A.-C. Primary Care Pro vider Reason for Visit * Reason Comments Flank Pain Vomiting * Auth/Cert (Routine) Specialty Diagnoses / Procedures Referred By Meir t Referred To Contact Diagnoses Nausea And Vomiting Abdominal Pain Procedures INPT Referral ID Status Reason Start Date Expiration Date Visits Re quested Visits Authorized [id number] 1 1 Encounter Details Date Type Department Care Team (Latest Contact Info) Description 08/21/2024 6:26 PM CDT - 08/25/2024 8:23 PM CDT Hospital Encounter [facility], [facility], [facility], Sixth Floor [address] [place] [phone] Antonio Olivia M.D. [address] [place] [phone] Pallavi Dyson M.D. [address] [place] [phone] Abdominal Pain (Primary Dx); Nausea And Vomiting; Transplant Liver (HCC); Nausea; Medication Therapy Clinical Team Lead Not 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; Chronic Pain Syndrome Discharge Disposition: Home or Self Care Social History Tobacco Use Types Packs/Day Years Used Date Smoking Tobacco: Former Cigarettes 1 - 10/12/2021 Passive Smoke Exposure: Never Smokeless Tobacco: Never Comments:Smoked cigarettes f rom age 18-30 about Alcohol Use Standard Drinks/Week Comments Never 0 (1 standard drink = 0.6 oz pure alcohol) Havent had any alcohol in about a year or so. [facility] Utilities Answer Date Recorded In the past 12 months has e [employer], gas, oil, or water [employer] threatened to shut off services in your home? No 08/22/2024 Humiliation, Afraid, Rape, and Kick questionnair e Answer Date Recorded Within the last year, have y ou been afraid of your partner or ex-partner? No 08/22/2024 Within the last year, have y ou been humiliated or emotionally abused in other ways by your partner or ex-partner? No Within the last year, have y ou been kicked, hit, slapped, or otherwise physically hurt by your partner or ex-partner? No 08/22/2024 Within the last year, have y ou been raped or forced to have any kind of sexual activity by your partner or ex-partner? No 08/22/2024 Social Connection and Isolat ion Panel [NHANES] Answer Date Recorded In a typical week, how many times do you talk on the phone with family, friends, or neighbors? More than three times a week 02/10/2022 How often do you get togethe r with friends or relatives? Once a week 02/10/2022 How often do you attend [facility] or yazdanism services? Patient declined 02/10/2022 Do you belong to any clubs o r organizations such as pentecostalism groups, unions, fraternal [...] PHQ-2 Answer Date Recorded PHQ-2 Score 0 08/11/2024 [facility] [...] to strenuous exercise (like a brisk walk)? 1 day On average, how many minutes do you engage in exercise at this level? Patient declined 03/29/2024 Hunger Vital Sign Answer Date Recorded Within the past 12 months, y ou worried that your food would run out before you got the money to buy more. Never true 08/23/19 Within the past 12 months, t he food you bought just didn't last and you didn't have money to get more. Never true 08/22/2024 PRAPARE - Transportation Answer Date Re corded In the past 12 months, has l ack of transportation kept you from medical appointments or from getting medications? No 08/02 In the past 12 months, has l ack of transportation kept you from meetings, work, or from getting things needed for daily living? No 08/22/2024 Depression Answer Date Recor ded PHQ-9 Total Score (max 27) 4 08/11 Nutrition Answer Date Recorded On average, how many serving s of fruits and vegetables do you eat per day (serving size is equal to 1 cup or approximately the size of a tennis ball)? 3-5 03/29/2024 Dental Answer Date Recorded Dental: Regular Dentist Yes 02/11/20 Employment Answer Date Recorded Employment status Temporarily disabled Housing Stability Answer Date Recorded What is your living situation today? I have a [facility] place to live 08/22/2024 Education Answer Date Recorded What is the highest level of school you have completed or the highest degree you have received? Associate degree: occupational, technical, or vocational program 07/16/2021 Comments No Sex and Gender Information Value Date Recorded Sex Assigned at Female 04/12/2021 7:39 PM SALES ACCOUNT REPRESENTATIVE Legal Sex Female 7:53 PM SALES ACCOUNT REPRESENTATIVE Gender Identity Female 04/12/2021 7:39 PM SALES ACCOUNT REPRESENTATIVE Sexual Orientation Straight 04/12/2021 7: 39 PM SALES ACCOUNT REPRESENTATIVE documented as of this encounter Last Filed Vital Signs Vital Sign Reading Time Taken Comments Blood Pressure 142/90 08/25/2024 6:07 PM CDT Pulse 60 08/25/2024 6:07 PM CDT Temperature 36.8 C (98.2 F) 08/25/2024 6:07 PM CDT Respiratory Rate 16 08/25/2024 6:07 PM CDT Oxygen Saturation 99% 08/25/2024 6:07 PM CDT Inhaled Oxygen Concentration - - Weight 53.7 kg (118 lb 6.2 oz) 08/21/2024 11:05 PM CDT Height 149.9 cm (4' 11.02) 08/22/2024 4:03 PM C DT Body Mass Index 23.9 08/21/2024 11:05 PM CDT documented in this encounter Discharge Summaries * Celena Rodriguez M.D., M.E. - 08/25/2024 5:42 PM CDT DISCHARGE SUMMARY BRIEF OVERVIEW Hospital: [facility] Discharge Provider: Pallavi Dyson M.D. Primary Team: [facility] 3 ([facility]) Primary Care Providers: Ana Red MPAS, P.A.-CSuma (General) [address] [place] [phone] Primary Care Provider Primary Care Provider Other Providers: RORO Tabares, P.A.-CSuma Admission Date: 08/21/2024 Discharge Date: 08/25/24 PRINCIPAL DIAGNOSIS Abdominal Pain SECONDARY DIAGNOSES Principal Problem: Abdominal Pain Active Problems: Nausea And Vomiting Resolved Problems: * No resolved hospital problems. * DISCHARGE DISPOSITION Home or Self Care [1] ACTIVE ISSUES REQUIRING FOLLOW UP Discharge Notes from your Provider Team You were discharged from the Medicine 3 Service. Please identify this service name if you call withquestions after hospitalization. 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 We promptly started treatmentfor this, which was high-dose steroids for three doses, every other day. We gave you two doses of this while in the hospital, and scheduled your last dose for outside the hospital. Our team and the hepatobiliary (liver) team thought you would be safe to leave the hospital with close follow up. We will arrange these follow up appointments for you. - You were given high dose steroids for liver rejection, so be mindful that your blood sugar levelswill go up, especially after meals. We will titrate your insulin levels to send you on a more robust regimen for this time period while you will be receiving all of these steroids. Please continue tomonitor your blood glucose levels on your CGM. We will have you follow up with your PCP in 1 week to make further titrations as necessary. If you start to feel weak, shaky, dizzy, or other symptoms of hypoglycemia, please drink some fruit juice and see your PCP early for insulin titration. This could happen if you are not eating regularly. If you start to feel dehydrated or are peeing a lot and feel ill (signs of hyperglycemia) - please go to the emergency department. You are high risk for DKA. - You are on immunosuppressive therapy and have just been given high dose steroids. Please be mindful of your surroundings and try and avoid sick people, as possible. You are at risk for infection. Medication changes: - Please continue medications as indicated in medication reconciliation - You will have your third steroid infusion 08/27/2024 at the infusion center in [facility]. Please ensure you receive this to treat your acute autoimmune liver rejection. You should hold your prednisone dose for that day. - Increase Lyrica (pregabalin) to 125 mg two times a day - Pain/nausea regimen: - dilaudid tablet 2 mg every 6 hours as needed for severe pain (7 days of medication until PCP follow up) - Zofran 4 mg tablets every 6 hours as needed for nausea (7 days of medication until PCP follow up) - Insulin regimen: - continue home glargine 7 units daily - we changed your short acting insulin regimen while you are on high-dose steroids. Please increasemealtime aspart correctional scale by 2 units (see updated prescription) three times a day with meals. - We took the aspirin off your medication list as you were not taking it Follow-up for patient: - Please attend follow up appointments as listed in after visit summary - Risk factor modification as per primary care provider, with whom you should follow up after discharge - You will have your last dose of IV steroids on 08/27/24 at the infusion center at 8:00 AM - Follow-up with the GI/Hepatobiliary team. They will reach out to you to schedule a clinic visit and tacrolimus level lab draw for the next week. - Follow-up with your PCP within 1 week. Follow-up on 09/01/24 with Ana Red MPAS, P.ADeborahC - Follow-up with your liver transplant team, all appointments are early October 2024. Follow-up for provider: - The patient was on high dose steroids and had corresponding spikes in blood glucose levels. Please recheck blood glucose level trend from CGM and titrate insulin regimen accordingly. We increased the correctional scale by 2 units for each range. - Please continue or discontinue her pain and antiemetic regimen as appropriate. We would not recommend using opioids long-term. She may benefit from further discussions and evaluation with the pain clinic. She should continue to go to pain rehab sessions. - Please monitor liver function tests and tacrolimus levels as able. This will also be followed by the hepatobiliary and liver transplant teams. If you have any questions related to issues addressed during your hospitalization prior to your follow-up appointments, contact the [facility] [employer] at [phone] and ask to speak with the Medicine 3 Service OUTPATIENT FOLLOW UP Scheduled Appointments Next 10 Appointments 08/27/2024 8:00 AM INF RN NURSE GEURA Infusion Therapy 09/01/2024 11:00 AM Ana Red MPAS, P.A.-C. [facility] 09/14/2024 4:00 PM PUL PICS CLINIC 01 [facility] Pulmonary Medicine 10/03/2024 9:00 AM US [facility] 03 RM 14 Radiology 10/10/2024 7:50 AM LAB BLOOD [facility] Laboratory Medicine 10/10/2024 8:00 AM LAB URINE CONTAINER [facility] Laboratory Medicine 10/10/2024 8:30 AM TXP POST LIVER 01 [facility] Transplant 10/10/2024 9:20 AM NM [facility] 05 BMD 05 Radiology 10/10/2024 9:45 AM LAB 01 RENAL [facility] Laboratory Medicine 10/10/2024 1:[address] [facility] THOR LOS 836 Radiology Displaying the next 10 appointments. This patient has additional appointments scheduled. For appointment details refer to your Patient Appointment Guide. TEST RESULTS PENDING AT DISCHARGE Pending Labs None DETAILS OF HOSPITAL STAY REASON FOR ADMISSION Nausea And Vomiting Abdominal Pain HOSPITAL COURSE Brief History Prior to Admission Ms. Brunson was admitted 07/25/2024 to 07/27/2024 for management of chronic abdominal pain thoughtto be secondary to chronic opioid use. She had an appointment to follow up with transplant addiction psychiatry on 08/07/2024 but did not arrive for this appointment per documentation. After discharge, she was seen by her primary care physician on 08/11 with ongoing efforts to wean off Dilaudid, and she [facility] during/after which she was intendedto discontinue her Dilaudid. She was seen in the emergency department on 08/19 for acute on chronic left lower quadrant abdominal pain and nausea; ALT at that time was 223 (increased from 26) and AST 133 (increased from 30). Her symptoms were able to be controlled with p.o. medications and she was discharged with plan to continue sublingual tacrolimus, follow up with transplant outpatient, and continue her ongoing chronic pain regimen. However, she returned to the emergency department on 08/21 for intractable abdominal pain and nausea/vomiting and ongoing inability to tolerate immunosuppressive medications. Emergency Department Course Initial ED vitals were notable for blood pressure of 104/79 and pulse of 122; she was afebrile and pulse quickly normalized without intervention. Laboratory studies were ALT of 163, AST of 73 (both slightly improved from 08/19) alk phos of 262, lipase of 10, and mild polycythemia. CT abdomen pelvis was obtained which was negative for acute pathology. EKG was grossly similar to prior. 2 L IV normalsaline were administered along with Zofran, diphenhydramine, and prochlorperazine for nausea and IVhydromorphone for pain. She was admitted to the Medicine 3 service for further evaluation and management. Medicine 3 Hospital Course (08/21/2024 - 08/25/24) Upon arrival to the floor, she was initiated on a multimodal pain regimen of scheduled Tylenol, oral Dilaudid, and topical modalities; IV pain medications were recommended against by the transplant team. She was continued on volume repletion with IV LR. Morning LFTs demonstrated a rise in AST to 349, ALT to 206, and alk phos to 293. Tacrolimus trough was inadvertently drawn after morning administration; repeat measurement on the morning of 08/23 demonstrated the level was low at 1.8. Repeat drawon 08/24 was 2.0. Right upper quadrant ultrasound of the transplanted liver demonstrated patent blood flow and no hepatic artery thrombosis. Due to concern for acute rejection, she underwent transplanted liver biopsy on 08/23 which revealed that the pathology was consistent with acute cellular rejection. She began IV steroids to try and treat her organ rejection, which consisted of IV solumedrol 1g for 3 doses. She got her first 2 doses in the hospital on 08/23 and 08/25, and will get her final dose outpatient on 08/27 at the infusion center. She decreased her hydromorphone dosing from every 4 hours to every 6 hours on 08/24. She was able to titrate off any IV medications, including pain and antiemetic therapy on 08/25. She remained comfortable and stable throughout the day, and ultimately was deemed safe for discharge home by her primary team and the hepatobiliary team. She discharged on 08/25 in stable condition with close follow up with her primary and GI/hepatobiliary teams. She will have her annual transplant visit with the liverTXP team in early October 2024. CONSULTS ORDERED DURING THIS ADMISSION IP CONSULT TO DIETITIAN IP CONSULT TO DIETITIAN IP CONSULT TO HEPATOLOGY CONDITION AT DISCHARGE stable Discharge instructions were provided to the patient and caregiver(s). documented in this encounter Discharge Instructions * Discharge Instructions* Nola Olivares - 08/22/2024 6:45 AM CDT You were discharged from the [facility] ([facility]) Service. Please identify this service name if youcall with questions after hospitalization. documented in this encounter Medications at Time of Discharge acetaminophen (TylenoL 8 Hr) 650 mg ER tablet Take 1 tablet (650 mg total) by mouth 3 (three) times a day. Typically takes 1 tablet every day in the morning, and two additional doses as needed for pain 90 tablet 11 04/20/2024 alcohol swabs (Alcohol Wipes) pads, medicated Use as needed with diabetic supplies 100 each 08/10/2024 4:35 PM CDT 08/09/2024 blood glucose control high,low (Accu-Chek Guide L1-L2 Ctrl Shayna) solution Use as directed with diabetes glucose meter to ensure accurate blood glucose testing. 1 each 05/15/2024 1:09 PM SALES ACCOUNT REPRESENTATIVE 05/15/2024 blood sugar diagnostic strips Use to test blood sugar 2 time(s) per day. 100 test 1 07/04/2024 1:55 PM SALES ACCOUNT REPRESENTATIVE 07/04/2024 07/05/19 blood-glucose meter misc Test as directed for diabetes control. 1 each 05/15/2024 1:09 PM SALES ACCOUNT REPRESENTATIVE 05/15/2024 blood-glucose sensor (FreeStyle Kristina 3 Plus Sensor) deviceIndications: Diabetes Mellitus Due To Underlying Condition With Ketoacidosis Without Coma (HCC) Use as directed. Change sensor every 15 days 6 each 3 09/09/2024 12:32 PM CDT 07/06/2024 cholecalciferol (Vitamin D3) 50 mcg (2,000 Unit) tablet Take 1 tablet (50 mcg total) by mouth daily. 90 tablet 3 04/20/2024 diclofenac sodium (Voltaren) 1 % gel Apply 2 g topically 4 (four) times a day. Apply to abdomen or other areas of pain. 200 g 3 04/20/2024 lancets Use 2 (two) times a day. Use as directed for diabetes testing. 100 each 1 07/04/2024 1:55 PM SALES ACCOUNT REPRESENTATIVE 07/04/2024 levonorgestreL (MIRENA) 21 mcg/24 hours (8 yrs) 52 mg IUD 1 Intra Uterine Device (1 each total) by intrauterine route continuously. Inserted 07/31/2022. 1 each 12/31/2022 lidocaine 4 % adhesive patch,medicated Place 1 patch on the skin daily. Apply to painful areas. 30 patch 1 04/20/2024 yowjrl-ehnhhnvs-cy ylase (Creon) 12,000-38,000-60,[address] capsule Take 2 capsules (24,000 Units of lipase total) by mouth 3 (three) times a day with meals. 100 capsule 07/12/2024 5:18 PM CDT 07/04/2024 meclizine (Antivert) 25 mg tablet Take 1 tablet (25 mg total) by mouth 3 (three) times a day as needed for dizziness. 42 tablet 1 04/20/2024 methocarbamoL (Robaxin) 750 mg tablet Take 1 tablet (750 mg total) by mouth 2 (two) times a day. 30 tablet 3 08/25/2024 8:13 PM CDT 07/04/2024 mirtazapine (Remeron) 15 mg tabletIndications: Transplant Liver (HCC),Anxiety Take 1 tablet (15 mg total) by mouth at bedtime. 90 tablet 3 04/20/2024 04/20/20 25 multivitamin tablet Take 1 tablet by mouth daily. 30 tablet 3 03/27/2024 naloxone (Narcan) 4 mg/actuation nasal spray Administer 1 spray (4 mg total) into one nostril as needed for reversal. Repeat with second device in other nostril after 2-3 minutes if no or minimal response. 2 each 04/25/2024 12:55 PM SALES ACCOUNT REPRESENTATIVE 04/25/2024 pantoprazole (Protonix) 40 mg EC tabletIndications: Transplant Liver (HCC),Gastroesopha geal Reflux Disease Without Esophagitis Take 1 tablet (40 mg total) by mouth daily before morning meal. 90 tablet 3 04/20/2024 pen needle, diabetic (BD Ultra-Fine Short Pen Needle) 31 gauge x 5/16 needle Use as needed for insulin and teriparatide injections. Daily teriparatide, 1-2 times daily long-acting insulin, and 3 times daily short-acting insulin. 200 each 2 08/10/2024 4:35 PM CDT 07/04/2024 predniSONE (Deltasone) 5 mg tablet Take 1 tablet (5 mg total) by mouth daily. 90 tablet 06/27/2024 5:33 PM SALES ACCOUNT REPRESENTATIVE 06/28/2024 teriparatide (Forteo) 20 mcg/dose (600mcg/2.4mL) injection Inject 0.08 mL (20 mcg total) under the skin daily. 2.4 mL 11 10/27/2023 traZODone (DesyreL) 50 mg tablet TAKE 1 TO 3 TABLETS(50 TO 150 MG) BY MOUTH AT BEDTIME NEEDED FOR SLEEP 180 tablet 3 07/27/2024 triamcinolone (Nasacort) 55 mcg/actuation nasal spray Administer 2 sprays into each nostril daily. 16.5 mL 11 08/30/2023 HYDROmorphone (Dilaudid) 2 mg tabletIndications: Chronic Pain/Nonacute Pain Take 1 tablet (2 mg total) by mouth every 6 (six) hours as needed for severe pain or score 7-10 of 10 for up to 7 days Indication: Chronic Pain/Nonacute Pain. 28 tablet 08/25/2024 8:13 PM CDT 08/25/2024 09/01/19 25 insulin aspart U-100 (NovoLOG Flexpen U-100 Insulin) 100 unit/mL (3 mL) pen Inject 4 Units under the skin 3 (three) times a day with meals for 7 days. For blood glucose: 140 - 179: give 2 units 180-219: give 3 units 220-259: 4 units 260-299: 5 units 300-339: 6 units 340-379: 7 units 380-399: 8 units Greater than 399: 9 units. Please adjust/decrease insulin regimen after visit with PCP Wednesday 15 mL 08/25/2024 09/09/19 25 insulin glargine 100 unit/mL (3 mL) pen Inject 7 Units under the skin 2 (two) times a day. Pharmacy select brand per patient insurance/prefere nce. Patient to use glargine until she receives Tresiba. 12.6 mL 2 07/04/2024 09/09/19 25 ondansetron (Zofran) 4 mg tabletIndications: Transplant Liver (HCC),Nausea,Medic ation Therapy Intermediate Not 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 Take 1 tablet (4 mg total) by mouth every 6 (six) hours as needed for nausea or vomiting. 28 tablet 08/25/2024 8:13 PM CDT 08/25/2024 09/09/19 25 polyethylene glycol (Miralax) 17 gram powder packet Take 1 packet (17 g total) by mouth daily. Dissolve each 17 g dose in 240 mLs (8 ounces) of beverage. 30 packet 06/28/2024 09/16/19 25 pregabalin (Lyrica) 100 mg capsule Take 1 capsule (100 mg total) by mouth 2 (two) times a day. 60 capsule 08/25/2024 09/07/19 25 pregabalin (Lyrica) 25 mg capsule Take 1 capsule (25 mg total) by mouth 2 (two) times a day. 60 capsule 08/25/2024 09/09/19 25 sennosides-docusat e sodium (Senokot-S) 8.6-50 mg per tablet Take 1 tablet by mouth 2 (two) times a day as needed for constipation. 100 tablet 06/27/2024 5:33 PM SALES ACCOUNT REPRESENTATIVE 06/27/2024 09/16/19 25 tacrolimus (Prograf) 1 mg capsuleIndications :prevention of liver transplant rejection Place 2 capsules (2 mg total) under the tongue every morning AND 2 capsules (2 mg total) every evening. 360 capsule 3 06/27/2024 5:33 PM SALES ACCOUNT REPRESENTATIVE 06/27/2024 09/09/19 25 documented as of this encounter Progress Notes * Pallavi Dyson M.D. - 08/25/2024 5:09 PM CDT T Medicine 3 ([facility]) Supervisory Note I have seen and assessed the patient with the medical team and helped to formulate the plan of care. I have personally reviewed the relevant data in the patient's medical chart. I agree with the findings, assessment and plan as written in the note by Dr. Celena Rodriguez dated 08/25/2024. Acute on chronic left lower flank/abdominal pain with chronic opioid use, uncertain underlying etiology Nausea and vomiting Status post liver transplant for alcoholic cirrhosis History of acute rejection, concern for recurrence of the same Chronic calcific pancreatitis with exocrine pancreatic insufficiency Type IIIC diabetes mellitus Moderate malnutrition Catia Brunson is a 34-year-old female admitted for acute on chronic flank pain, nausea, vomiting, and reported inability to tolerate her oral immunosuppression for approximately the last week. There are concerns for acute rejection in the setting of rising transaminases with recent inconsistent tacrolimus dosing. Liver biopsy demonstrated mild acute rejection. Hepatobiliary has recommended several additional doses of high-dose steroid and there is ongoing monitoring of tacrolimus levels. In discussion, this can be arranged as an outpatient. Assuming adequate control of abdominal pain and nausea/vomiting, anticipate discharge home as soon as later today. Disposition: Home Notable homegoing needs: TBD Please refer to Dr. Rodriguez's note dated today for additional details about our team's plan of care. I personally spent a total of 35 minutes providing and coordinating care today. * Shea Hernandez RDN, LD - 08/25/2024 2:58 PM CDT Clinical Nutrition: Follow-up Clinical Nutrition continues to follow patient for oral intake encouragement and oral nutrition supplement follow up/adjustment Completed visit with patient on 08/24 as part of face to face care. SUBJECTIVE Ms. Brnuson is a 34 y.o. female admitted for Abdominal Pain with nausea and emesis over the past week in setting of chronic abdominal pain in the setting of a liver allograft and immunosuppression. She received a liver biopsy on this admission which revealed that she is in acute cellular rejection. Current Nutrition: Patient reported eating has been going better. She has been able to tolerate oral intake with at least 2 meals per day with no emesis. Noted patient had emesis today. Patient has been consuming 1-2 Ensure Clear per her report. Percentage of Meals Eaten for the past 72 hrs: Percent Meals Eaten (%) 08/25/24 0947 100 08/24/24 1635 100 08/24/24 1200 100 08/24/24 0820 75 08/22/24 2136 100 OBJECTIVE Current nutrition orders: Dietary Orders (From admission, onward) Start Ordered 08/23/24 1107 Adult Diet Regular (Adult Diet) Diet effective now Question: Diet texture: Answer: Regular 08/23/24 1106 08/22/24 1634 Oral supplement -Supplement; Ensure Clear (mixed ulloa); 1 each; Take at: Breakfast, Dinner, Lunch (Oral Nutrition Supplement) Until discontinued Question Answer Comment Type: Supplement Supplement: Ensure Clear (mixed ulloa) Size: 1 each Take at: Breakfast Take at: Dinner Take at: Lunch 08/22/24 1633 Pertinent Labs: Last 3 results Lab Units 08/25/24 0915 08/24/24 0704 08/23/24 1046 SODIUM mmol/L 141 133* 142 POTASSIUM mmol/L 3.7 4.3 3.3* CHLORIDE mmol/L 106 100 107 BUN mg/dL 15 10 6 CREATININE mg/dL 0.56* 0.55* 0.62 PHOSPHORUS INORGANIC mg/dL -- 3.3 3.8 CALCIUM mg/dL 9.1 10.2* 8.8 MAGNESIUM mg/dL -- 1.8 1.8 Chewing and Swallowing: denied issues GI Function:Last BM Date: 08/23/24, , Passing Flatus: Yes Edema: ,none Integumentary/Wounds: Lines/Drains/Airways Wound Duration Wound 08/23/24 Abdomen Right;Upper biopsy site 2 days Medications: Current Medications[1] Anthropometrics: Height: 149.9 cm Admission Weight: 52.8 kg (08/21/2024) Current Weight: 53.7 kg (08/21/2024) BMI (Calculated): 23.9 kg/m?? Weight change since admission: 0.9 kg Net IO Since Admission: 1,610 mL [08/25/24 1459] ASSESSMENT / PLAN Nutrition Diagnosis: Malnutrition (undernutrition) related to chronic illness as evidenced by meeting malnutrition criteria per AND/ASPEN guidelines. Ongoing Inadequate oral intake related to current illness as evidenced by patient's report . Improving Malnutrition Assessment: ASPEN Criteria of Malnutrition: Nutritional Status: Non-severe (moderate) Malnutrition Malnutrition in the Context of: Chronic Illness Based on: Energy Intake: Less than or equal to 75% of estimated energy requirement for greater than or equal to 1 month Interpretation of Weight Loss: No Change Body Fat: Mild Loss Muscle Mass: Mild Loss Fluid Accumulation: Absent Estimated Needs: Total Calorie Needs: 9954-1954 calories/day Method to Estimate Energy Needs: kcal/kg (25-30 kcal/kg) Weight Used for Equation Calculations: 53.7 kg Total Protein Needs: 54 - 81 grams/day (Method to Estimate Protein Needs (g/kg): 1 - 1.5 gm/kg) Weight Used to Calculate Protein Needs (Kg): 53.7 kg Nutrition Intervention: Interventions: Medical food supplement, Vitamin and mineral supplements, Provide counseling strategies to apply nutrition knowledge, Increase nutrient intake with small, frequent meals and/or snacks Monitoring/Evaluation: Nutrition parameter to monitor: Meals/Supplement Intake, Weight Status, Pertinent Labs, Nausea/Vomiting, and Constipation/Diarrhea Recommendations: OK to discontinue IV thiamine. Continue ONS TID to bolster oral intake. Continue daily vitamin mineral, Vitamin D supplementation. Clinical Nutrition will continue to follow. For questions about patient's nutritional care please contact pager [phone] on weekdays 07:30-16:00 or [phone] on weekends/holidays ([facility]) [phone]. [1] Current Facility-Administered Medications: acetaminophen tablet 500 mg (TylenoL), 500 mg, oral, Q6H PRN, Alyssa Terry APRN, C.N.P., M.S.N. acetaminophen tablet 650 mg (TylenoL), 650 mg, oral, TID, Barrera Cerda M.D., 650 mg at 08/25/24 0845 qzhwhmdrvnxed-aqngendhsx-xidekemj in Lipoderm 2%-5%-5% cream 1 g, 1 g, topical, BID PRN, Celena Rodriguez M.D., M.E., 1 g at 08/24/242010 [Held by provider] aspirin chewable tablet 81 mg, 81 mg, oral, Daily, Barrera Cerda M.D., 81 mg at 08/22/24 0854 bisacodyL suppository 10 mg (Dulcolax), 10 mg, rectal, Daily PRN, Barrera Cerda M.D. calcium carbonate chewable tablet 400 mg of calcium (Tums), 400 mg of calcium, oral, Q2H PRN, Barrera Cerda M.D. cholecalciferol (vitamin D3) tablet 50 mcg, 50 mcg, oral, Daily, Barrera Cerda M.D., 50 mcg at 08/25/24 0845 diclofenac sodium 1 % gel 2 g (Voltaren), 2 g, topical, 4x Daily, Barrera Cerda M.D., 2 g at 08/25/24 0850 fluticasone propionate 50 mcg/actuation nasal spray 1 spray (Flonase), 1 spray, each nostril, Daily, Barrera Cerda M.D., 1 spray at 08/25/24 0848 heparin (porcine) injection 5,000 Units, 5,000 Units, subcutaneous, Q8H LAWRENCE, Celena Rodriguez M.D., M.E. HYDROmorphone tablet 2 mg (Dilaudid), 2 mg, oral, Q6H PRN, 2 mg at 08/25/24 1047 AND HYDROmorphone tablet 1 mg (Dilaudid), 1 mg, oral, Q6H PRN, Pallavi Dyson M.D. insulin aspart U-100 injection 0-9 Units (NovoLOG FlexPen), 0-9 Units, subcutaneous, TID, Celena Rodriguez M.D., M.E., 1 Units at 08/25/24 0855 insulin aspart U-100 injection 10 Units (NovoLOG FlexPen), 10 Units, subcutaneous, TID, Celena Rodriguez M.D., M.E., 10 Units at 08/25/24 0854 insulin glargine injection 7 Units, 7 Units, subcutaneous, BID, Barrera Cerda M.D.,7 Units at 08/25/24 0852 lidocaine 5 % 1 patch (Lidoderm), 1 patch, transdermal, Daily, Barrera Cerda M.D., 1 patch at 08/25/24 0849 uksspz-owweqfbn-zaejies 12,000-38,000-60,[address] capsule 24,000 Units of lipase (Creon), 24,000 Units of lipase, oral, TID with meals, Barrera Cerda M.D., 24,000 Units of lipase at 08/25/24 1221 [COMPLETED] methylPREDNISolone sodium succinate 1,000 mg in NaCl 0.9% IVPB, 1,000 mg, intravenous, Once, Last Rate: 116 mL/hr at 08/25/24 0905, 1,000 mg at 08/25/24 09 FOLLOWED BY [START ON 08/27/2024] methylPREDNISolone sodium succinate 1,000 mg in NaCl 0.9% IVPB, 1,000 mg, intravenous, Once,Celena Rodriguez M.D., M.E. mirtazapine tablet 15 mg (Remeron), 15 mg, oral, Daily at bedtime, Barrera Cerda M.D., 15 mg at 08/24/242010 zzkftiejlwrh-zexv-YE-Ca-minerals 400 mcg (folic acid) tablet 1 tablet, 1 tablet, oral, Daily, Barrera Creda M.D., 1 tablet at 08/25/24 0844 naloxone injection 0.4 mg (Narcan), 0.4 mg, intravenous, PRN, Barrera Cerda M.D. ondansetron ODT disintegrating tablet 4 mg (Zofran-ODT), 4 mg, oral, Once, Celena Rodriguez M.D., July pantoprazole DR tablet 40 mg (Protonix), 40 mg, oral, Daily before morning meal, Barrera Cerda M.D., 40 mg at 08/25/24 0443 polyethylene glycol powder packet 17 g (Miralax), 17 g, oral, Daily, Barrera Cerda M.D. polyethylene glycol powder packet 17 g (Miralax), 17 g, oral, Daily PRN, Barrera Cerda M.D. [Held by provider] predniSONE tablet 5 mg (Deltasone), 5 mg, oral, Daily, Barrera Cerda M.D., 5 mg at 08/24/24 0857 pregabalin capsule 125 mg (Lyrica), 125 mg, oral, BID, Celena Rodriguez M.D., M.ESuma, 125 mg at 08/25/24 0845 prochlorperazine tablet 5 mg (Compazine), 5 mg, oral, Q6H PRN, Celena Rodriguez M.D., M.E. sennosides-docusate sodium 8.6-50 mg per tablet 1 tablet (Senokot-S), 1 tablet, oral, BID PRN, Barrera Cerda M.D. sennosides-docusate sodium 8.6-50 mg per tablet 1 tablet (Senokot-S), 1 tablet, oral, BID, Barrera Cerda M.D., 1 tablet at 08/25/24 0845 sodium chloride 0.9 % injection 10 mL, 10 mL, intravenous, PRN, Antonio Olivia M.D. sodium chloride 0.9 % injection 3 mL, 3 mL, intravenous, PRN, Atnonio Olivia M.D. sodium chloride 0.9 % injection 3 mL, 3 mL, intravenous, Q12H LAWRENCE, Antonio Olivia M.D., 3 mL at 08/25/24 0851 tacrolimus capsule 2 mg (Prograf), 2 mg, sublingual, Daily AM, 2 mg at 08/25/24 0843 AND tacrolimus capsule 2 mg (Prograf), 2 mg, sublingual, Daily PM, Barrera Cerda M.D., 2 mg at08/24/242009 thiamine injection 100 mg (Vitamin B-1), 100 mg, intravenous, Daily, Barrera Cerda M.D., 100 mg at 08/25/24 0842 traZODone tablet 50 mg (DesyreL), 50 mg, oral, At bedtime PRN, Barrera Cerda M.D. * Jorge Villarreal Pharm.D., R.Ph. - 08/25/2024 10:03 AM CDT Pharmacist Progress Note Reason for admission: acute on chronic abdominal pain PMH: alcoholic cirrhosis s/p liver transplant, chronic abdominal pain, type 3C diabetes, AUD in remission, hepatic artery stenosis s/p stent placement 12/24, cannabis use disorder, GERD, RLS OBJECTIVE Home medications: Held: teriparatide, methocarbamol, Changed: pregabalin (increased) Prophylaxis: SQH TID ASSESSMENT / PLAN Abdominal pain - liver biopsy consistent w/ acute cellular rejection. Treating w/ high dose methylprednisolone (1 g every other day x3 doses). Continues on APAP 650 mg TID, topical diclofenac, topical lidocaine, pregabalin 125 mg BID, and PRN oral hydromorphone. Liver transplant - high dose methylpred as above. Prednisone 5 mg PO daily, tacrolimus 2 mg SL BID.No changes to tacrolimus per hepatobiliary team. Diabetes - glargine 7 units BID, aspart 10 units TID + correction Jorge Villarreal PharmSumaDSuma, R.Ph. * Celena Rodriguez M.D., M.E. - 08/25/2024 7:22 AM CDT [facility] ([facility]) PROGRESS NOTE SUBJECTIVE HISTORY OF PRESENT ILLNESS Ms. Catia Brunson is a 34 y.o. female who presents with left lower quadrant abdominal pain, nausea and vomiting for the last week, without any blood or fevers. Medical comorbidities notable for chronic abdominal pain, chronic pancreatitis, alcoholic cirrhosis with esophageal varices status post donor liver transplant in 2022 complicated by acute slow rejection, type 3 C diabetes, chronic pain syndrome, alcohol use disorder in remission, hepatic artery stenosis status post stent placement 12/24, cannabis use disorder, GERD and restless legs syndrome. INTERVAL EVENTS: - At shift change, noted to report a significant 9 to 10/10 pain. Pain continued to be controlled with oral medications. - Her pain is otherwise improved per nursing documentation, and she was comfortable in bed this morning. - Discontinued IV medications, only on oral pain/antiemetics - Will receive 2nd dose of IV Solu-Medrol today OBJECTIVE PHYSICAL EXAMINATION General: Alert, interactive, comfortable in bed. Skin: No rashes or lesions. Eyes: Pupils equal and round. ENT: Hearing grossly intact. Dentition intact. Lungs: Clear to auscultation. No wheezes or crackles. Heart: Regular rate and rhythm. No murmurs appreciated. No lower extremity edema. Abdomen: Soft, flat, no rebound or guarding. Some L flank tenderness (and L>R CVA tenderness), and diffuse abdominal tenderness to deep palpation. Negative carnet sign. Neuro: Cranial nerves II-XII intact. Strength 5/5 in all extremities. Mental: Mood and affect congruent. Alert and oriented. Attention intact. No evidence of disorganized thinking. Reliable history elderly caregiver. ASSESSMENT / PLAN Ms. Catia Brunson is a 34 y.o. female who presents with left lower quadrant abdominal pain and nausea/vomiting for the last week in the setting of a liver allograft and immunosuppression. She received a liver biopsy on this admission which revealed that she is in acute cellular rejection. From hepatobiliary recs, we are treating with 3 doses of high-dose IV Solu-Medrol, and having her follow up very closely with her transplant team. She will get her 2nd dose of the IV Solu-Medrol today, but can likely leave the hospital within the next day or so to get her last dose outpatient. From a liver standpoint, she is safe to go home, and this is the optimal setting for her in the setting of h er immunosuppression. We have otherwise been trying to address her nausea and abdominal pain, which were were initially doing with IV medications. She is now completely on an oral regimen, and should be safe to go home with close PCP follow up. Notably, her tacro trough level was 2.0 on 08/24/2024, it is unclear why it is that low. Per discussions with the hepatobiliary team, we will not make tacro dose changes we will continue to follow that up with lab draws outpatient. Plan: # liver allograft, concern for rejection # history of acute myeloid T-cell mediated rejection # hx alcoholic cirrhosis s/p liver transplant # refractory nausea and vomiting # dehydration and poor po intake Liver biopsy - revealing acute cellular rejection 1,000 mg IV Solu-Medrol x 3 doses (on day 1, 3, and 5) Will receive dose #2 today Trend LFTs Continue immunosuppression regimen sublingual home tacrolimus 2 mg BID home prednisone 5 mg oral daily - held on days she gets IV steroids Tacrolimus troughs HB consult, appreciate recs Oral zofran, Reglan, and mirtazapine with QTc monitoring as needed Encourage hydration and oral diet # exacerbation of the chronic abdominal pain # chronic opioid use # cannabis use disorder Pain regimen: Acetaminophen lidocaine patch Voltaren gel heat in affected area Lyrica up titrated to 125 mg b.i.d. hydromorphone 2 oral tablet mg q.6h for moderate and severe pain + spot dosing at the 4 hour reilly if there is breakthrough pain (frequency increased on 08/23) # chronic pancreatitis with exocrine pancreatic insufficiency # type IIIC diabetes mellitus home glargine and home sliding scale: For B - 179: give 0 units 180-219:give 1 unit 220-259:+2 units 260-299: +3 units 300-339: +5 units 340-379: +7 units 380-399:+9 units.Greater than 399:Call service writing Insulin orders Added aspart t.i.d. at meals to cover postprandial hyperglycemia in the setting of steroid use (started 08/24) BG goal 140-180 # Moderate malnutrition Dietary consult Continue 100 mg IV thiamine for 3-5 days due to refeeding risk in setting of poor oral intake x 1 week Closely monitor serum potassium, phosphorus and magnesium due to refeeding risk and replace accordingly ONS to bolster oral intake Continue daily vitamin mineral, Vitamin D supplementation VTE prophylaxis: subq heparin Code status: Full code Surrogate Decision Maker: Lobito, spouse Living Situation Before Admission: Home independent Discharge Plan (equipment, therapy, and facility): Probably home, TBD Non-severe (moderate) Malnutrition The patient meets the ASPEN Criteria of malnutrition based on: Energy Intake: Less than or equal to 75% of estimated energy requirement for greater than or equal to 1 month Interpretation of Weight Loss: No Change Body Fat: Mild Loss Muscle Mass: Mild Loss Fluid Accumulation: Absent This is in the context of Chronic Illness. Agree with Registered Dietitian's assessment and treatment plan: Interventions: Medical food supplement, Vitamin and mineral supplements, Provide counseling strategies to apply nutrition knowledge, Increase nutrient intake with small, frequent meals and/or snacks Plan discussed with [facility] ([facility]) Environmental Conflict Manager, Dr. Dyson, who was present during judd portions of the evaluation today. Please page the [facility] ([facility]) service pager at [phone] with any questions. Ludivina Rodriguez M.D., M.E. Internal Medicine Resident - PGY-1 Personal pager: [phone] * Celena Rodriguez M.D., M.Patrica. - 08/24/2024 3:55 PM CDT [facility] ([facility]) PROGRESS NOTE SUBJECTIVE HISTORY OF PRESENT ILLNESS Ms. Catia Brunson is a 34 y.o. female who presents with left lower quadrant abdominal pain, nausea and vomiting for the last week, without any blood or fevers. Medical comorbidities notable for chronic abdominal pain, chronic pancreatitis, alcoholic cirrhosis with esophageal varices status post donor liver transplant in 2022 complicated by acute slow rejection, type 3 C diabetes, chronic pain syndrome, alcohol use disorder in remission, hepatic artery stenosis status post stent placement 12/24, cannabis use disorder, GERD and restless legs syndrome. INTERVAL EVENTS: - No issues overnight post-biopsy, hemodynamically stable - BG levels 300-400 post steroid administration - Some nausea overnight, but no major episodes of emesis reported - Required IV dilaudid x 1 dose overnight due to breakthrough abdominal pain OBJECTIVE PHYSICAL EXAMINATION General: Alert, interactive, comfortable in bed. Skin: No rashes or lesions. Eyes: Pupils equal and round. ENT: Hearing grossly intact. Dentition intact. Lungs: Clear to auscultation. No wheezes or crackles. Heart: Regular rate and rhythm. No murmurs appreciated. No lower extremity edema. Abdomen: Soft, flat, no rebound or guarding. Some L flank tenderness (and L>R CVA tenderness), and diffuse abdominal tenderness to deep palpation. Negative carnet sign. Neuro: Cranial nerves II-XII intact. Strength 5/5 in all extremities. Mental: Mood and affect congruent. Alert and oriented. Attention intact. No evidence of disorganized thinking. Reliable history elderly caregiver. ASSESSMENT / PLAN Ms. Catia Brunson is a 34 y.o. female who presents with left lower quadrant abdominal pain and nausea/vomiting for the last week in the setting of a liver allograft and immunosuppression. Ultimately, her presentation is concerning for organ rejection in the setting of her transplant. She hascome into the emergency department and been admitted to the hospital multiple times for similar complaints, and ultimately she has had ongoing difficulty with the establishing an appropriate pain regimen for her abdominal pain. However, on this admission she presents with slightly different abdominal pain, and concern for an evolving process. Hepatobiliary team was consulted to weigh in, and ultim ately there was concern for allograft rejection. She was agreeable to a liver biopsy, so that was obtained on the morning of 08/23 followed by high-dose pulsed IV steroids. Liver biopsy path came backon 08/24 an confirmed acute rejection. We will continue with 3 doses of the IV steroids (every other day) and then the patient can be discharged home with close follow up. We will continue to try to titrate her pain regimen to optimize pain control while minimizing opioid use (especially IV). We will try and up titrate her Lyrica and deescalate the p.o. hydromorphone as able. Notably, her tacro trough level was 2.0 on 08/24/2024, it is unclear why it is that low. Perdiscussions with the hepatobiliary team, we will not make tacro dose changes today. Plan: # liver allograft, concern for rejection # history of acute myeloid T-cell mediated rejection # hx alcoholic cirrhosis s/p liver transplant # refractory nausea and vomiting # dehydration and poor po intake Liver biopsy - revealing acute cellular rejection 1,000 mg IV Solu-Medrol x 3 doses (on day 1, 3, and 5) Trend LFTs Continue immunosuppression regimen sublingual home tacrolimus 2 mg BID home prednisone 5 mg oral daily - held on days she gets IV steroids Tacrolimus troughs HB consult, appreciate recs Zofran, Reglan, and mirtazapine with QTc monitoring as needed Encourage hydration and oral diet # exacerbation of the chronic abdominal pain # chronic opioid use # cannabis use disorder Pain regimen: Acetaminophen lidocaine patch Voltaren gel heat in affected area Lyrica up titrated to 125 mg b.i.d. hydromorphone 2 oral tablet mg q.6h for moderate and severe pain + spot dosing at the 4 hour reilly if there is breakthrough pain (frequency increased on 08/23) Will consider discussion with pain medicine if having difficulty with pain regimen titration # chronic pancreatitis with exocrine pancreatic insufficiency # type IIIC diabetes mellitus home glargine and home sliding scale: For B - 179: give 0 units 180-219:give 1 unit 220-259:+2 units 260-299: +3 units 300-339: +5 units 340-379: +7 units 380-399:+9 units.Greater than 399:Call service writing Insulin orders Added aspart t.i.d. at meals to cover postprandial hyperglycemia in the setting of steroid use (started 08/24) BG goal 140-180 # Moderate malnutrition Dietary consult Continue 100 mg IV thiamine for 3-5 days due to refeeding risk in setting of poor oral intake x 1 week Closely monitor serum potassium, phosphorus and magnesium due to refeeding risk and replace accordingly ONS to bolster oral intake Continue daily vitamin mineral, Vitamin D supplementation VTE prophylaxis: subq hepaein Code status: Full code Surrogate Decision Maker: Lobito, spouse Living Situation Before Admission: Home independent Discharge Plan (equipment, therapy, and facility): Probably home, TBD Non-severe (moderate) Malnutrition The patient meets the ASPEN Criteria of malnutrition based on: Energy Intake: Less than or equal to 75% of estimated energy requirement for greater than or equal to 1 month Interpretation of Weight Loss: No Change Body Fat: Mild Loss Muscle Mass: Mild Loss Fluid Accumulation: Absent This is in the context of Chronic Illness. Agree with Registered Dietitian's assessment and treatment plan: Interventions: Medical food supplement, Vitamin and mineral supplements, Provide counseling strategies to apply nutrition knowledge, Increase nutrient intake with small, frequent meals and/or snacks Plan discussed with [facility] ([facility]) Environmental Conflict Manager, Dr. Dyson, who was present during judd portions of the evaluation today. Please page the [facility] ([facility]) service pager at [phone] with any questions. Ludivina Rodriguez M.D., M.E. Internal Medicine Resident - PGY-1 Personal pager: [phone] * Pallavi Dyson M.D. - 08/24/2024 1:06 PM CDT [facility] ([facility]) Supervisory Note I have seen and assessed the patient with the medical team and helped to formulate the plan of care. I have personally reviewed the relevant data in the patient's medical chart. I agree with the findings, assessment and plan as written in the note by Dr. Celena Rodriguez dated 08/24/2024. Acute on chronic left lower flank/abdominal pain with chronic opioid use, uncertain underlying etiology Nausea and vomiting Status post liver transplant for alcoholic cirrhosis History of acute rejection, concern for recurrence of the same Chronic calcific pancreatitis with exocrine pancreatic insufficiency Type IIIC diabetes mellitus Moderate malnutrition Catia Brunson is a 34-year-old female admitted for acute on chronic flank pain, nausea, vomiting, and reported inability to tolerate her oral immunosuppression for approximately the last week. There are concerns for acute rejection in the setting of rising transaminases with recent inconsistent tacrolimus dosing. Continuing to await the results of liver biopsy. High-dose steroids are continuing in the interim under the instruction of hepatobiliary. Otherwise, abdominal pain is slightly improved but still significant with substantial associated nausea. We will plan to trial gradual uptitration of Lyrica as an opioid-sparing measure. In the setting of high-dose steroids, the patient has had significant worsening in blood sugar control. We will continue to work on titrating this today. Disposition: Likely home Notable homegoing needs: TBD Please refer to Dr. Rodriguez's note dated today for additional details about our team's plan of care. I personally spent a total of 35 minutes providing and coordinating care today. * Xu Joel Jr., M.D. - 08/24/2024 12:31 PM CDT Gastroenterology Consulting Service Brief Note In brief we are seeing, Ms. Brunson is a 34 y.o. female who is in the hospital with Abdominal Painand we have been consulted for evaluation and management of nausea/vomiting/abdominal pain with elevated liver enzymes. Her liver biopsy results are now consistent with ACR. We would recommend 1 g per day of IV Solu- Medrol every other day for 3 doses. Trend her liver function tests daily. Whenever she is ready for discharge she can resume her IV infusions at our infusion center. No need to keep inpatient for IV solumedrol if otherwise ready. Recommendations - Plan for 3 total doses of 1 g of IV Solu-Medrol every other day - If ready to discharge please reach out to us and we will send a message to her footwear sales coordinator to help get her set up with IV infusions. We will sign off. Case was discussed with supervising education consultant Dr. Hirsch. Please contact us at [phone] with any questions or concerns. -- Xu Joel MD PGY-4 Department of Gastroenterology and Hepatology Fellow Cosigned by Arun Hirsch M.D. at 08/24/2024 12:56 PM CDT * Pallavi Dyson M.D. - 08/23/2024 4:56 PM CDT [facility] ([facility]) Supervisory Note I have seen and assessed the patient with the medical team and helped to formulate the plan of care. I have personally reviewed the relevant data in the patient's medical chart. I agree with the findings, assessment and plan as written in the note by Dr. Celena Rodriguez dated 08/23/2024. Acute on chronic left lower flank/abdominal pain with chronic opioid use Nausea and vomiting Status post liver transplant for alcoholic cirrhosis History of acute rejection Chronic calcific pancreatitis with exocrine pancreatic insufficiency Type IIIC diabetes mellitus Moderate malnutrition Catia Brunson is a 34-year-old female admitted for acute on chronic flank pain, nausea, vomiting, and reported inability to tolerate her oral immunosuppression for approximately the last week. There are concerns for acute rejection in the setting of rising transaminases with recent inconsistent tacrolimus dosing. Liver biopsy obtained this morning. While awaiting results, we are initiating high-dose steroids indiscussion with the hepatobiliary service. We are working to off of hydromorphone. The patient was hesitant to trial an increase neuromodulators due to a lack of efficacy in the past. We will continue to revisit alternative options. Disposition: TBD Notable homegoing needs: TBD Please refer to Dr. Rodriguez's note dated today for additional details about our team's plan of care. I personally spent a total of 35 minutes providing and coordinating care today. * Ramo Muñoz - 08/23/2024 2:14 PM CDT Images from the original note were not included. [facility] ([facility]) PROGRESS NOTE SUBJECTIVE HISTORY OF PRESENT ILLNESS Ms. Brunson is hospitalized on [facility] ([facility]) for evaluation and management of chronic abdominal pain, nausea and vomiting. INTERVAL EVENTS: 24 hours vitals Afebrile BP: 120s - 130s/80s - 90s Pulse: 60s-80s Pulse ox: >98% on room air No acute overnight events Today, Ms. Brunson remains with her left-sided, sharp abdominal pain that intermittently radiates into her back. It began around February 2024 and has progressively worsening while waxing and waning throughout. She used to have pain free episodes but now ranges from a 6 to a 9/10 in intensity. It does not have any specific association with food or bowel movements. She has gotten some relief with heat applications. She otherwise denies any urinary changes, hematochezia, or any other new or worsening pain or acute concerns. She has been able to tolerate PO intake with intermittent vomiting, feels her nausea is currently controlled on her nausea medication regimen. OBJECTIVE PHYSICAL EXAMINATION General: Alert, interactive. Skin: No rashes or lesions. Dry mouth Eyes: Pupils equal and round. Sclera anicteric. ENT: Hearing grossly intact. Dentition intact. No oral or pharyngeal erythema or lesions noted. Abdomen: Soft, flat, postsurgical scars noted. Generalized tenderness to palpation, most focally atthe left lateral abdomen superior to the left iliac crest. No rebound or guarding. Negative Carnettsign. Bilateral CVA tenderness, left greater than right. Neuro: No focal deficits noted. Mental: Mood and affect congruent. Somewhat anxious. Alert and oriented. Attention intact. No evidence of disorganized thinking. Reliable history elderly caregiver. Results: 08/23/24 Inorganic phosphate - 3.8 (stable) Magnesium - 1.8 (stable) Potassium - 3.3 (3.5) Tacrolimus trough - pending Phosphatidylethanol - pending CBC - stable Prothrombin time - 11.3 INR - 1.0 (1.1) ASSESSMENT / PLAN Ms. Brunson is hospitalized on [facility] ([facility]) for evaluation and management of potential acute rejection of hepatic allograft secondary to acute on chronic abdominal pain, nausea and vomiting. Plan: # liver allograft (10/10/2022) in the setting of alcoholic cirrhosis # history of acute myeloid T-cell mediated rejection # refractory nausea and vomiting Concern for acute rejection given acute rise in transaminases and inability to tolerate oral tacrolimus in the days preceding admission. Transaminases have since roughly stabilized. No asterixis or signs of hepatic encephalopathy. Plan: Diagnostics Liver biopsy today - results pending Trend LFTs Tacrolimus trough - pending Management Continue sublingual home tacrolimus 2 mg BID Continue home prednisone 5 mg oral daily Start IV methylprednisolone 1000 mg every other day Nausea and vomiting regimen: Patient with normal QTC, we will do Zofran, Reglan (history of gastricemptying delay) and mirtazapine Encourage oral diet # left abdominal pain # exacerbation of the chronic abdominal pain syndrome # chronic opioid use # cannabis use disorder # chronic pancreatitis # history of delayed gastric emptying Differential diagnosis includes but is not limited to central sensitization, abdominal muscles culture wall strain, diverticulitis, and nephrolithiasis. Low suspicion for diverticulitis given lack ofhematochezia, correlation with bowel movements, and relatively young age. Left CVA tenderness increases suspicion for nephrolithiasis, though this is confounded by Ms. Brunson's chronic pain in his less likely given negative abdominal pelvic CT obtained in the emergency department, lack of urinarysymptoms, and bland urine during last study on 08/19/2024. Negative Carnett sign suggests this may not be musculoskeletal, though this maneuvers not entirely sensitive. I suspect there was also some o verlay of central sensitization for which Ms. Brunson is in the process of being evaluated and [facility] with ultimate goal of weaning off opioid analgesics. Plan: Systemic therapies Scheduled acetaminophen 650 mg q.8 hours for mild pain Moderate/severe ? PO hydromorphone 2 mg tablet mg; decrease frequency from q.4h to q.6h PRN Breakthrough pain ? PO hydromorphone 1 mg PRN if pain intolerable 45 minutes after 2 mg dose Continue home PO Pregabalin 100 mg b.i.d. No IV pain meds at this moment as per recommended by transplant team. Topicals Lidocaine patch Voltaren gel Heat in affected area # type IIIC diabetes mellitus Plan: Resume her home glargine and home sliding scale: 40 - 179 ? give 0 units 180-219 ? give 1 unit 220-259 ? +2 units 260-299 ? +3 units 300-339 ? +5 units 340-379 ? +7 units 380-399 ? +9 units Greater than 399:Call service writing Insulin orders # malnutrition Dietary consult Thiamine supplementation Regular diet Refeeding labs VTE prophylaxis: Heparin 5000 t.i.d. (resumed post biopsy) Code status: Full code Surrogate Decision Maker: Lobito spouse Living Situation Before Admission: Home independent Discharge Plan (equipment, therapy, and facility): Probably home, TBD Non-severe (moderate) Malnutrition The patient meets the ASPEN Criteria of malnutrition based on: Energy Intake: Less than or equal to 75% of estimated energy requirement for greater than or equal to 1 month Interpretation of Weight Loss: No Change Body Fat: Mild Loss Muscle Mass: Mild Loss Fluid Accumulation: Absent This is in the context of Chronic Illness. Agree with Registered Dietitian's assessment and treatment plan: Interventions: Medical food supplement, Vitamin and mineral supplements, Provide counseling strategies to apply nutrition knowledge, Increase nutrient intake with small, frequent meals and/or snacks Plan discussed with [facility] ([facility]) Environmental Conflict Manager, Dr. Dyson, who was present during judd portions of the evaluation today. Please page the [facility] ([facility]) service pager at [phone] with any questions. Electronically signed by: Ramo Muñoz [facility] Medical Student, 08/23/24 2:14 PM CDT Cosigned by Celena Rodriguez M.D., M.E. at 08/23/2024 5:59 PM CDT * Celena Rodriguez M.D., M.E. - 08/23/2024 6:45 AM CDT [facility] ([facility]) PROGRESS NOTE SUBJECTIVE HISTORY OF PRESENT ILLNESS Ms. Catia Brunson is a 34 y.o. female who presents with left lower quadrant abdominal pain, nausea and vomiting for the last week, without any blood or fevers. Medical comorbidities notable for chronic abdominal pain, chronic pancreatitis, alcoholic cirrhosis with esophageal varices status post donor liver transplant in 2022 complicated by acute slow rejection, type 3 C diabetes, chronic pain syndrome, alcohol use disorder in remission, hepatic artery stenosis status post stent placement 12/24, cannabis use disorder, GERD and restless legs syndrome. INTERVAL EVENTS: - abdominal pain has been managed with po hydromorphone and multimodal analgesic therapy - afebrile, hemodynamically stable - last BM 08/21 OBJECTIVE PHYSICAL EXAMINATION General: Alert, interactive, comfortable in bed. Skin: No rashes or lesions. Eyes: Pupils equal and round. ENT: Hearing grossly intact. Dentition intact. Lungs: Clear to auscultation. No wheezes or crackles. Heart: Regular rate and rhythm. No murmurs appreciated. No lower extremity edema. Abdomen: Soft, flat, no rebound or guarding. Some L flank tenderness (and L>R CVA tenderness), and diffuse abdominal tenderness to deep palpation. Negative carnet sign. Neuro: Cranial nerves II-XII intact. Strength 5/5 in all extremities. Mental: Mood and affect congruent. Alert and oriented. Attention intact. No evidence of disorganized thinking. Reliable history elderly caregiver. ASSESSMENT / PLAN Ms. Catia Brunson is a 34 y.o. female who presents with left lower quadrant abdominal pain and nausea/vomiting for the last week in the setting of a liver allograft and immunosuppression. Ultimately, her presentation is concerning for organ rejection in the setting of her transplant. She hascome into the emergency department and been admitted to the hospital multiple times for similar complaints, and ultimately she has had ongoing difficulty with the establishing an appropriate pain regimen for her abdominal pain. However, on this admission she presents with slightly different abdominal pain, and concern for an evolving process. Hepatobiliary team was consulted to weigh in, and ultim ately there was concern for allograft rejection. She was agreeable to a liver biopsy, so that was obtained on the morning of 08/23 followed by high-dose pulsed IV steroids. Per hepatobiliary, we will continue with 3 doses of the IV steroids (every other day) and await biopsy results. In the meantime, we will continue to symptomatically treat her pain and nausea. We will try to titrate her pain ramos men to optimize pain control while minimizing opioid use (especially IV). We will wait for biopsy results and for the IV steroids to be complete in a few days, and then we will consider a safe discharge plan thereafter. Plan: # liver allograft, concern for rejection # history of acute myeloid T-cell mediated rejection # hx alcoholic cirrhosis s/p liver transplant # refractory nausea and vomiting # dehydration and poor po intake Liver biopsy - path pending 1,000 mg IV Solu-Medrol x 3 doses (on day 1, 3, and 5) Trend LFTs Continue immunosuppression regimen sublingual home tacrolimus 2 mg BID home prednisone 5 mg oral daily Tacrolimus troughs HB consult, appreciate recs Zofran, Reglan, and mirtazapine with QTc monitoring as needed Encourage hydration and oral diet # exacerbation of the chronic abdominal pain # chronic opioid use # cannabis use disorder Pain regimen: Acetaminophen lidocaine patch Voltaren gel heat in affected area Lyrica 100 mg BID, pt does not want to titrate hydromorphone 2 oral tablet mg q.6h for moderate and severe pain + spot dosing at the 4 hour reilly if there is breakthrough pain (frequency increased on 08/23) Will consider discussion with pain medicine if having difficulty with pain regimen titration # chronic pancreatitis with exocrine pancreatic insufficiency # type IIIC diabetes mellitus home glargine and home sliding scale: For B - 179: give 0 units 180-219:give 1 unit 220-259:+2 units 260-299: +3 units 300-339: +5 units 340-379: +7 units 380-399:+9 units.Greater than 399:Call service writing Insulin orders BG goal 140-180 # Moderate malnutrition Dietary consult Continue 100 mg IV thiamine for 3-5 days due to refeeding risk in setting of poor oral intake x 1 week Closely monitor serum potassium, phosphorus and magnesium due to refeeding risk and replace accordingly ONS to bolster oral intake Continue daily vitamin mineral, Vitamin D supplementation VTE prophylaxis: Held for liver biopsy today, will restart 08/24 Code status: Full code Surrogate Decision Maker: Lobito, spouse Living Situation Before Admission: Home independent Discharge Plan (equipment, therapy, and facility): Probably home, TBD Non-severe (moderate) Malnutrition The patient meets the ASPEN Criteria of malnutrition based on: Energy Intake: Less than or equal to 75% of estimated energy requirement for greater than or equal to 1 month Interpretation of Weight Loss: No Change Body Fat: Mild Loss Muscle Mass: Mild Loss Fluid Accumulation: Absent This is in the context of Chronic Illness. Agree with Registered Dietitian's assessment and treatment plan: Interventions: Medical food supplement, Vitamin and mineral supplements, Provide counseling strategies to apply nutrition knowledge, Increase nutrient intake with small, frequent meals and/or snacks Plan discussed with [facility] ([facility]) Environmental Conflict Manager, Dr. Dyson, who was present during judd portions of the evaluation today. Please page the [facility] ([facility]) service pager at [phone] with any questions. Ludivina Rodriguez M.D., M.E. Internal Medicine Resident - PGY-1 Personal pager: [phone] * Jorge Villarreal Pharm.D., R.Ph. - 08/22/2024 10:26 AM CDT Pharmacist Progress Note Reason for admission: acute on chronic abdominal pain PMH: alcoholic cirrhosis s/p liver transplant, chronic abdominal pain, type 3C diabetes, AUD in remission, hepatic artery stenosis s/p stent placement 12/24, cannabis use disorder, GERD, RLS OBJECTIVE Home medications: Held: teriparatide, methocarbamol, Changed: none Prophylaxis: SQ[facility] TID ASSESSMENT / PLAN Abdominal pain - abdominal CT imaging does not reveal acute pathology to explain patient's abdominal pain. Continues on APAP 650 mg TID, topical diclofenac, topical lidocaine, pregabalin 100 mg BID, and PRN oral hydromorphone. Liver transplant - prednisone 5 mg PO daily, tacrolimus 2 mg BID Diabetes - glargine 7 units BID, aspart correction Jorge Villarreal Pharm.D., R.Ph. * Jorge Villarreal Pharm.D., R.Ph. - 08/22/2024 8:03 AM CDT Images from the original note were not included. Admission Medication History Note Medication list source: RN interview, pharmacist review of medication dispense history Medication related information: Some medications are overdue for refill Prior to Admission Medications Med List Status: In Progress Set By: Catia Villavicencio R.N. at 08/21/2024 7:08 PM Taking? Last Dose Informant Start Date End Date LT acetaminophen (TylenoL 8 Hr) 650 mg ER tablet -- -- 04/20/24 -- Take 1 tablet (650 mg total) by mouth 3 (three) times a day. Typically takes 1 tablet every day in the morning, and two additional doses as needed for pain aspirin 81 mg chewable tablet -- -- 04/20/24 04/20/25 Chew 1 tablet (81 mg total) daily. Notes: last dispensed Apr 2024 cholecalciferol (Vitamin D3) 50 mcg (2,000 Unit) tablet -- -- 04/20/24 -- Take 1 tablet (50 mcg total) by mouth daily. diclofenac sodium (Voltaren) 1 % gel -- -- 04/20/24 -- Apply 2 g topically 4 (four) times a day. Apply to abdomen or other areas of pain. HYDROmorphone (Dilaudid) 4 mg tablet -- -- 08/16/24 -- Take 0.5 tablets (2 mg total) by mouth every 12 (twelve) hours Indication: Chronic Pain/Nonacute Pain. Notes: Approval for substitution of equivalent dose/quantity of any available hydromorphone dosage forms, including compounds during drug shortage insulin aspart U-100 (NovoLOG Flexpen U-100 Insulin) 100 unit/mL (3 mL) pen -- -- 07/04/24 -- Inject 4 Units under the skin 3 (three) times a day with meals. For blood glucose: 140 - 179: give 0 units 180-219: give 1 unit 220-259: +2 units 260-299: +3 units 300-339: +5 units 340-379: +7 [id number]: +9 units Greater than 399: Call service writing Insulin orders Notes: Place on file. insulin glargine 100 unit/mL (3 mL) pen -- -- 07/04/24 -- Inject 7 Units under the skin 2 (two) times a day. Pharmacy select brand per patient insurance/preference. Patient to use glargine until she receives Tresiba. Notes: Place on file. levonorgestreL (MIRENA) 21 mcg/24 hours (8 yrs) 52 mg IUD -- Self 12/31/22 -- 1 Intra Uterine Device (1 each total) by intrauterine route continuously. Inserted 07/31/2022. lidocaine 4 % adhesive patch,medicated -- -- 04/20/24 -- Place 1 patch on the skin daily. Apply to painful areas. wozrtn-rxnhlkxg-lmasmqb (Creon) 12,000-38,000-60,[address] capsule -- -- 07/04/24 -- Take 2 capsules (24,000 Units of lipase total) by mouth 3 (three) times a day with meals. Notes: Taking 12,000 units of Lipase meclizine (Antivert) 25 mg tablet -- -- 04/20/24 -- Take 1 tablet (25 mg total) by mouth 3 (three) times a day as needed for dizziness. methocarbamoL (Robaxin) 750 mg tablet -- -- 07/04/24 -- Take 1 tablet (750 mg total) by mouth 2 (two) times a day. mirtazapine (Remeron) 15 mg tablet -- -- 04/20/24 04/20/25 Take 1 tablet (15 mg total) by mouth at bedtime. multivitamin tablet -- -- 03/27/24 -- Take 1 tablet by mouth daily. naloxone (Narcan) 4 mg/actuation nasal spray -- -- 04/25/24 -- Administer 1 spray (4 mg total) into one nostril as needed for reversal. Repeat with second device in other nostril after 2-3 minutes if no or minimal response. Notes: Based on insurance and cost, may sub with 2 x Naloxone 2 mg/2 mL Inj (Nasal) with MAD: sig: Assemble as directed and spray 1 mL into each nostril. Repeat in 2-3 minutes if no or minimal response. ondansetron (Zofran) 4 mg tablet -- -- 05/05/24 -- Take 1 tablet (4 mg total) by mouth every 6 (six) hours as needed for nausea or vomiting. pantoprazole (Protonix) 40 mg EC tablet -- -- 04/20/24 -- Take 1 tablet (40 mg total) by mouth daily before morning meal. pen needle, diabetic (BD Ultra-Fine Short Pen Needle) 31 gauge x 5/16 needle -- -- 07/04/24 -- Use as needed for insulin and teriparatide injections. Daily teriparatide, 1-2 times daily long-acting insulin, and 3 times daily short-acting insulin. Notes: DX: Diabetes Mellitus Type 1 - E10.9. Pharmacist may substitute brand, needle/syringe size of diabetic supply or adjust quantities down per patient preference or insurance coverage. polyethylene glycol (Miralax) 17 gram powder packet -- -- 06/28/24 -- Take 1 packet (17 g total) by mouth daily. Dissolve each 17 g dose in 240 mLs (8 ounces) of beverage. predniSONE (Deltasone) 5 mg tablet -- -- 06/28/24 -- Take 1 tablet (5 mg total) by mouth daily. pregabalin (Lyrica) 100 mg capsule -- -- 07/27/24 -- Take 1 capsule (100 mg total) by mouth 2 (two) times a day. Notes: last dispensed May 2023 sennosides-docusate sodium (Senokot-S) 8.6-50 mg per tablet -- -- 06/27/24 -- Take 1 tablet by mouth 2 (two) times a day as needed for constipation. tacrolimus (Prograf) 1 mg capsule -- -- 06/27/24 06/27/25 [address] 2 capsules (2 mg total) under the tongue every morning AND 2 capsules (2 mg total) every evening. Notes: Fill only with AB rated generics of brand name Prograf; Do not use [employer] generic tacrolimus products. Indications: liver transplant rejection prevention. teriparatide (Forteo) 20 mcg/dose (600mcg/2.4mL) injection -- Self 10/27/23 -- Inject 0.08 mL (20 mcg total) under the skin daily. traZODone (DesyreL) 50 mg tablet -- -- 07/27/24 -- TAKE 1 TO 3 TABLETS(50 TO 150 MG) BY MOUTH AT BEDTIME NEEDED FOR SLEEP Patient taking differently: Take 50 mg by mouth at bedtime as needed for sleep. TAKE 1 TO 3 TABLETS(50 TO 150 MG) BY MOUTH AT BEDTIME NEEDED FOR SLEEP triamcinolone (Nasacort) 55 mcg/actuation nasal spray -- Self 08/30/23 -- Administer 2 sprays into each nostril daily. documented in this encounter H&P Notes * Pallavi Dyson M.D. - 08/22/2024 3:11 PM CDT [facility] ([facility]) Supervisory Note I have seen and assessed the patient with the medical team and helped to formulate the plan of care. I have personally reviewed the relevant data in the patient's medical chart. I agree with the findings, assessment and plan as written in the note by Dr. Barrera Lewis dated 08/23/2024. Acute on chronic left lower flank/abdominal pain with chronic opioid use Nausea and vomiting Status post liver transplant for alcoholic cirrhosis History of acute rejection Chronic calcific pancreatitis with exocrine pancreatic insufficiency Type IIIC diabetes mellitus Moderate malnutrition Catia Brunson is a 34-year-old female admitted for acute on chronic flank pain, nausea, vomiting, and reported inability to tolerate her oral immunosuppression for approximately the last week. There are concerns for acute rejection in the setting of rising transaminases with recent inconsistent tacrolimus dosing. While transaminases were not particularly concerning on immediate presentation, this morning they are significantly higher. We consulted the hepatobiliary service with plans for liver biopsy. Imaging and testing are otherwise reassuring for no other acute cause of abdominal pain and nausea. Otherwise, we are working to optimize control of nausea and pain acknowledging and overall goal to minimize opioid use with plan for pain rehab in the near future. The patient meets the ASPEN Criteria of malnutrition based on: Energy Intake: Less than or equal to 75% of estimated energy requirement for greater than or equal to 1 month Interpretation of Weight Loss: No Change Body Fat: Mild Loss Muscle Mass: Mild Loss Fluid Accumulation: Absent This is in the context of Chronic Illness. Agree with Registered Dietitian's assessment and treatment plan: Interventions: Medical food supplement, Vitamin and mineral supplements, Provide counseling strategies to apply nutrition knowledge, Increase nutrient intake with small, frequent meals and/or snacks Disposition: TBD Notable homegoing needs: TBD Please refer to Dr. Barrera Lewis's note dated today for additional details about our team'splan of care. I personally spent a total of 75 minutes providing and coordinating care today. * Barrera Cerda M.D. - 08/22/2024 12:05 AM CDT [facility] ([facility]) Admission Note SUBJECTIVE CHIEF COMPLAINT: LLQ abdominal pain and vomiting HISTORY OF PRESENT ILLNESS Ms. Catia Brunson is a 34 y.o. female who presents with left lower quadrant abdominal pain, nausea and vomiting for the last week, without any blood or fevers. Medical comorbidities notable for chronic abdominal pain, chronic pancreatitis, alcoholic cirrhosis with esophageal varices status post donor liver transplant in 2022 complicated by acute slow rejection, type 3 C diabetes, chronic pain syndrome, alcohol use disorder in remission, hepatic artery stenosis status post stent placement 12/24, cannabis use disorder, GERD and restless legs syndrome. She has had multiple admissions for chronic abdominal pain attributed to chronic pancreatitis in the past. She has very frequentoutpatient prescriptions for opiate medications by her PCP. On plan to be weaned off Dilaudid and to be on pain rehabilitation program. She attended to the emergency department on 08/19 due to 1 week of left lower quadrant abdominal pain, nausea and vomiting 2-4 times a day, making her unable to take her tacrolimus. During the ED admission on 08/19 transplant team did not consider she needed to be admitted to the hospital and consider a CT was not appropriate due to her clinical presentation and history of radiation. They also noted that the tacrolimus at sublingual and she should be able to take it even she has nausea. She re-consult today due to persistent abdominal pain, nausea vomiting with no new symptoms ED COURSE: Low bicarbonate and slightly elevated anion gap. AST 73, ALT 163, alk-phos 262, decreasing when compared to previous. No leukocytosis and lactate 1.1. CT of the abdomen and pelvis with no acute findings. She is admitted due to persistent vomiting and pain. Baseline Functional Status and Mobility: Independent Recent Results (from the past 24 hours) Basic Metabolic Panel Collection Time: 08/21/24 6:47 PM Result Value Potassium, P 3.6 Sodium, P 138 Chloride, P 103 Bicarbonate, P 20 (L) Anion Gap, P 15 BUN (Blood Urea Nitrogen), P 6 Creatinine 0.54 (L) Estimated GFR (eGFR) >90 Calcium, Total, P 10.1 (H) Glucose, P 166 (H) Hepatic Function Panel Collection Time: 08/21/24 6:47 PM Result Value Bilirubin, Total, S 0.9 Bilirubin, Direct, S 0.3 Aspartate Aminotransferase (AST), S 73 (H) Alanine Aminotransferase (ALT), S 163 (H) Alkaline Phosphatase, S 262 (H) Albumin, S 4.9 Protein, Total, S 7.7 Lipase Collection Time: 08/21/24 6:47 PM Result Value Lipase, S 10 (L) CBC with Differential, Blood Collection Time: 08/21/24 6:47 PM Result Value Hemoglobin 15.7 (H) Hematocrit 45.3 (H) Erythrocytes 5.36 (H) MCV 84.5 RBC Distrib Width 11.8 (L) Platelet Count 196 Leukocytes 6.1 Neutrophils 3.99 Lymphocytes 1.65 Monocytes 0.33 Eosinophils 0.09 Basophils 0.03 Lactate for Sepsis with Reflex Collection Time: 08/21/24 6:47 PM Result Value Lactate, P 1.1 hCG (Human Chorionic Gonadotropin), Quantitative, Collection Time: 08/21/24 6:47 PM Result Value HCG, Quantitative, , P 1.0 OBJECTIVE PHYSICAL EXAMINATION General: Alert, interactive. Skin: No rashes or lesions. Dry mouth Eyes: Pupils equal and round. Sclera anicteric. ENT: Hearing grossly intact. Dentition intact. No oral or pharyngeal erythema or lesions noted. Lymph: No cervical or subclavicular adenopathy. Lungs: Clear to auscultation. No wheezes or crackles. Heart: Regular rate and rhythm. No murmurs appreciated. No lower extremity edema. Abdomen: Soft, flat, bowel sounds normoactive, nontender, nondistended, no palpable masses or organomegaly. Neuro: Cranial nerves II-XII intact. Strength 5/5 in all extremities. Mental: Mood and affect congruent. Alert and oriented. Attention intact. No evidence of disorganized thinking. Reliable history elderly caregiver. ASSESSMENT / PLAN Ms. Brunson is hospitalized on [facility] ([facility]) for evaluation and management of chronic abdominal pain, nausea and vomiting. 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 No IV pain meds at this moment as per recommended by transplant team. Patient attending to opioid rehab and PCP trying to wean off opioids. We will also continue her home gabapentin Nausea and vomiting regimen: Patient with normal QTC, we will do Zofran, Reglan (history of gastricemptying delay) and mirtazapine Due to dehydration and poor oral intake we will administer 1 L of LR and I encouraged oral diet History of type 3 C diabetes, we will resume her home glargine and home sliding scale: For B - 179: give 0 units 180-219:give 1 unit 220-259:+2 units 260- 299: +3 units 300-339: +5 units 340-379: +7 units 380-399:+9 units.Greater than 399:Call service writing Insulin orders Continue home prednisone 5 mg daily, and tacrolimus 2 mg b.i.d.. We will obtain tacro through levels requiring a.m. Trend LFT # malnutrition Dietary consult Thiamine supplementation Regular diet Refeeding labs VTE prophylaxis: Heparin 5000 t.i.d. Code status: Full code Surrogate Decision Maker: Lobito spouse Living Situation Before Admission: Home independent Discharge Plan (equipment, therapy, and facility): Probably home, TBD Plan discussed with [facility] ([facility]) , Dr. Loo, who was present during judd portions of the evaluation today. Please page the [facility] ([facility]) service pager at [phone] with any questions. * Elias Loo Jr., M.D. - 08/21/2024 10:35 PM CDT [facility] ([facility]) MEDICINE SENIOR SUPERVISORY NOTE SUBJECTIVE Catia Brunson is a 34 y.o. female with comorbidities of: End-stage liver disease secondary to alcohol use disorder status post donor liver transplantation October 2022 Complicated by hepatic artery stenosis requiring stent placement December 2023 Prior episodes of rejection steroid responsive (April 2024) Tacrolimus noncompliance due to nausea/vomiting Esophageal varices Alcohol use disorder in remission Cannabis use disorder Chronic abdominal pain syndrome in the setting of chronic pancreatitis GERD Diabetes mellitus type IIIC insulin-dependent with previous DKA Restless leg syndrome The patient was last admitted to the GI floor in July of 2024 for management of her chronic abdominal pain which was thought to be secondary to chronic opioid use. She was supposed to follow with transplant addiction Psychiatry per the patient apparently 10 present for that consultation based on chart review. She was seen by her primary care physician on 08/11 who has been trying to wean off Dilaudid. Last prescription of 2 mg every 12 hours. She was supposed to start a pain rehabilitation program on 08/15, when her Dilaudid will be discontinued altogether. She presents to the ED on 08/19 with nausea, vomiting, left-sided abdominal pain starting 08/14. Herlabs at that time demonstrated increased liver enzymes compared to prior. ALT 223 from 26, and AST 133 from 30. It was discussed with liver transplant who recommended improved compliance with tacrolimus. The patient re-presented to the emergency department today due to worsening left lower quadrant abdominal pain and nausea and vomiting. Unable to tolerate immunosuppressive medications for the last 8days. Reported some diarrhea. She was tachycardic on presentation which quickly resolved. Otherwisehemodynamically stable and afebrile. Her labs showed polycythemia with hemoglobin 15.7, no leukocytosis, creatinine at baseline, BUN of 6, bicarbonate of 20, glucose 166, liver enzymes similar to prior, lipase , hCG negative. Urinalysis from 08/19 was negative for pyuria. EKG with sinus tachycardia.CT abdomen and pelvis with IV contrast with no acute findings in the abdomen or pelvis to explain her symptoms. She was treated with 2 L of IV fluids, 3 doses of 1 mg hydromorphone, Compazine, Benadryl, and admitted to the floor for further management. She arrived in the floor in stable condition. She endorses using marijuana sparingly every 2 or 3 days. She does mentioned that marijuana helps with her nausea. OBJECTIVE VITAL SIGNS Temperature: [37 ??C] 37 ??C Heart Rate: [63-98] 64 Resp Rate: [14-32] 20 Blood Pressure: (95-137)/(65-96) 98/66 SpO2: [94 %-100 %] 94 % Height: [149.9 cm] 149.9 cm Weight: [52.8 kg] 52.8 kg BSA (Calculated - sq m): [1.48 sq meters] 1.48 sq meters BMI (Calculated): [23.5 kg/m??] 23.5 kg/m?? Pulse Rate: [64-122] 64 PHYSICAL EXAM General: Appears fatigued and in some distress from pain and nausea ENT: Hearing grossly intact. Dentition intact. No oral or pharyngeal erythema or lesions noted. Lungs: Clear to auscultation. No wheezes or crackles. Heart: Regular rate and rhythm. No murmurs appreciated. No lower extremity edema. Abdomen: Soft, flat, bowel sounds normoactive, nontender, nondistended, no palpable masses or organomegaly. Mental: Mood and affect congruent. Alert and oriented. Attention intact. No evidence of disorganized thinking. Reliable history elderly caregiver. DIAGNOSTICS I have personally reviewed the laboratory data and imaging since admission, and in/outs for past 72hours. ASSESSMENT / PLAN # exacerbation of the chronic abdominal pain syndrome # refractory nausea and vomiting # chronic opioid use # cannabis use disorder # chronic pancreatitis # history of delayed gastric emptying # history of acute myeloid T-cell mediated rejection # malnutrition # type IIIC diabetes mellitus Ms. Brunson is a 34-year-old female with complex medical history as summarized above who presents with worsening nausea/vomiting and abdominal pain with inability to tolerate her immunosuppressive regimen in the setting of history of liver transplant for alcohol related liver disease. No acute medical illnesses have been identified through thorough workup obtained in the emergency department including CT of the abdomen and pelvis. We will manage her nausea aggressively and reintroduce her oralmedications given ongoing concern for transplant rejection given increase in liver enzymes. We willprovide IV thiamine. Pain will be managed with oral Dilaudid sparingly in addition to a multimodal pain regimen. We will consult dietitian given concern for malnutrition. Once the patient starts eating again she will need monitoring for refeeding given that she is high risk. Summary of plan: - Pain regimen: Tylenol 650 mg q.8hrs; topical medications; Lyrica home doses; hydromorphone 1-2 mgevery 4 hours; avoid IV Dilaudid - Nausea regimen: zofran, compazine (normal QTc), reglan prior to medication and oral intake; resume home mirtazapine - IVF - IV thiamine - Dietitian consult - Resume insulin glargine and home sliding scale - Tacrolimus level with a.m. labs - Resume Prednisone 5mg, tacrolimus 2mg bid as soon as possible - Trend HFP - Refeeding labs once oral intake resumed Code status: Full code Please see Dr. Nash's note for details. Please page the [facility] ([facility]) service pager at [phone] with any questions. documented in this encounter Procedure Notes * Britta Lamb M.D. - 08/21/2024 8:32 PM CDTAssociated Order(s): Peripheral Venous Access Procedure Peripheral Venous Access Performed by: Britta Lamb M.D. Authorized by: Antonio Olivia M.D. PROCEDURE DETAILS Ultrasound image guidance used to localize target, identify at risk structures, and dynamically used to direct therapy to the target. Image(s) not saved. Size (gauge): 18 G Number of attempts: 1 CONSENT Consent obtained: verbal Consent given by: patient PRE-PROCEDURE DETAILS Indication: IV access needed Provider performed due to: complicated insertion Location: upper extremity Upper extremity: right arm Skin preparation: chlorhexidine SEDATION / ANESTHESIA Anesthesia method: none POST-PROCEDURE DETAILS: Assessment: free fluid flow and no signs of infiltration Procedure completed successfully: yes Complications: no immediate complications Britta Lamb M.D. Resident 08/21/242032 documented in this encounter Consult Notes * Xu Joel Jr., M.D. - 08/22/2024 4:46 PM CDTAssociated Order(s): IP CONSULT TO HEPATOLOGY GASTROENTEROLOGY AND HEPATOLOGY CONSULT NOTE SUBJECTIVE Catia Brunson [phone] DATE OF CONSULTATION: 08/22/2024 REQUESTING SERVICE: [facility] ([facility]) CONSULT QUESTION/CONCERN We are seeing Catia Brunson at the request of [facility] ([facility]) for the evaluation of nausea, vomiting and rising liver function test concerning for ACR. HISTORY OF PRESENT ILLNESS Ms. Brunson is a 34 y.o. female woman with medical comorbidities of alcohol- related liver disease s/p OLT 10/2022, complicated by hepatic artery stenosis requiring stent placement in December 2023 andepisodes of steroid-responsive rejection, most recently treated with Solu-Medrol in April 2024. She has chronic pancreatitis, chronic nausea and vomiting, and a history of neutropenia from CellCept. These factors have contributed to erratic tacrolimus levels despite reported compliance. She has since been transitioned to sublingual tacrolimus and started on prednisone. She presented to the ED on August 19 with a one-week history of left lower quadrant abdominal pain, nausea, and vomiting 2 to 4 times daily, impairing her ability to take tacrolimus. Her medical history is also significant for type 3C diabetes, chronic pain syndrome, alcohol use disorder in remission, cannabis use disorder, GERD, and restless legs syndrome. She has frequent opioid prescriptions and multiple prior admissions for abdominal pain attributed to chronic pancreatitis. She is being weaned off Dilaudid with plans for a pain rehabilitation program. OBJECTIVE Vitals: 08/22/24 1600 BP: (!) 121/92 Pulse: 81 Resp: 17 Temp: 37 ??C SpO2: 99% PHYSICAL EXAMINATION General: well-appearing and in no acute distress Neuro: alert and oriented Heart: S1, S2 normal, no murmur, click, rub or gallop, regular rate and rhythm Edema: none Lungs: Lungs clear bilaterally Abdomen: Soft with diffuse tenderness in all 4 quadrants. No ascites DIAGNOSTIC WORKUP: ASSESSMENT / PLAN #1 Nausea And Vomiting #2 Abdominal Pain #3 Alcohol use disorder(OLT 10/2022) #4 Cannabis Hyperemesis Syndrome Ms. Brunson is a 34 y.o. female who is in the hospital with Abdominal Pain and we have been consulted for evaluation and management of nausea/vomiting/abdominal pain with elevated liver enzymes. Herelevated liver enzymes likely represent ACR in the setting of medication noncompliance from vomiting. She reports that the bulk of her vomiting is in the setting of pain. She is currently on the sublingual tacrolimus and does not react to the medication but during that time period tacrolimus is underneath her tongue she will have episodes of sharp stabbing pain causing her to vomit. We discussed the need to move forward with a liver biopsy. She is on the schedule for tomorrow morning. After tissue was obtained we will start 3 days of steroids per protocol. Overall for nausea and vomiting, if it truly is secondary to pain then she would benefit from pain rehab to wean off of her home Dilaudid which may be exacerbating her symptoms. We also discussed complete cannabis cessation as this alsocould be contributing to her nausea. RECOMMENDATIONS: - Liver biopsy. Please request rapid processing( [phone]) - Start IV Solu-Medrol 1g every other day post biopsy per protocol This patient was staffed with Dr. Hirsch, with the recommendations discussed with the primary team.Thank you for involving us in the care of this patient. We will continue to follow along. Please page the GI Hepatobiliary consult pager at [phone] with any questions or concerns. -- Xu Joel MD PGY-4 Gastroenterology and Hepatology Fellow Cosigned by Arun Hirsch M.D. at 08/22/2024 5:40 PM CDT * Shea Hernandez, DELTA, LD - 08/22/2024 4:10 PM CDTAssociated Order(s): IP CONSULT TO DIETITIAN; IP CONSULT TO DIETITIAN Clinical Nutrition: Initial Assessment Clinical Nutrition was requested to evaluate patient for positive nursing baseline nutrition screenwith a MST score of 2 or greater and assessment of nutritional status Completed visit with patient and care team today as part of face to face care. SUBJECTIVE Ms. Brunson is a 34 y.o. female admitted for Abdominal Pain with nausea and emesis over the past week in setting of chronic abdominal pain with chronic opioid use. Pertinent History: Alcoholic cirrhosis with esophageal varices status post donor liver transplant in 2022 complicated by acute slow rejection Type IIIC diabetes mellitus Chronic pancreatitis with exocrine pancreatic insufficiency Type IIIC diabetes mellitus Chronic pain syndrome Alcohol use disorder (in remission) Hepatic artery stenosis status post stent placement 12/24 Cannabis use disorder GERD Current Nutrition: Patient reported she was able to tolerate noon meal with no emesis. She request to continue Ensure Clear - mixed ulloa with each meal. Percentage of Meals Eaten for the past 72 hrs: Percent Meals Eaten (%) 08/22/24 1300 100 08/22/24 1018 25 Nutrition Prior to Admission: Patient reported she has not been able to tolerate oral intake due toabdominal pain with emesis since 08/18. She shared her intake has been poor over the past week. Patient reported prior to last week she was able to eat 1-2 meals per day working towards more frequent meals with protein at each meal. She drinks 1-2 Ensure Clear daily. She takes Vitamin D3, MVI M and Creon 1 tab w/ snacks and 2 tabs with meals. Nutrition Education/Counseling: Patient received pre-transplant nutrition education 08/2021 and post-transplant nutrition education on . Patient has received ongoing nutrition education regarding small frequent meals, protein intake and use of ONS during hospital readmissions. OBJECTIVE Current nutrition orders: Dietary Orders (From admission, onward) Start Ordered 08/23/24 0000 No oral or enteral nutrition (NPO Orders) Diet effective midnight 08/22/24 1458 08/22/24 0906 Oral supplement -Supplement; Boost Soothe (strawberry kiwi); 1 each; Take at: Lunch (Oral Nutrition Supplement) Until discontinued Question Answer Comment Type: Supplement Supplement: Boost Soothe (strawberry kiwi) Size: 1 each Take at: Lunch 08/22/24 0908/22/24904 Oral supplement -Supplement; Ensure Clear (mixed ulloa); 1 each; Take at: Breakfast, Dinner (Oral Nutrition Supplement) Until discontinued Question Answer Comment Type: Supplement Supplement: Ensure Clear (mixed ulloa) Size: 1 each Take at: Breakfast Take at: Dinner 08/22/24 0908/21/24 234 Adult Diet Regular (Adult Diet) Diet effective now Question: Diet texture: Answer: Regular 08/21/24 2346 Pertinent Labs: Last 3 results Lab Units 08/22/24 0423 08/21/24 1847 SODIUM P mmol/L -- 138 SODIUM mmol/L 141 -- POTASSIUM mmol/L 3.5* -- POTASSIUM P mmol/L -- 3.6 CHLORIDE P mmol/L -- 103 CHLORIDE mmol/L 107 -- BUN P mg/dL -- 6 BUN mg/dL 4* -- CREATININE mg/dL 0.56* 0.54* PHOSPHORUS INORGANIC mg/dL 3.1 -- CALCIUM P mg/dL -- 10.1* CALCIUM mg/dL 8.5* -- MAGNESIUM mg/dL 1.8 -- Last 3 results Lab Units 08/22/24 0423 08/21/24 1847 ALBUMIN g/dL 3.7 4.9 Chewing and Swallowing: denied issues GI Function:Last BM Date: 08/21/24, , Passing Flatus: Yes Edema: ,none Integumentary/Wounds: Lines/Drains/Airways None Medications: Current Medications[1] Anthropometrics: Height: 149.9 cm Admission Weight: 52.8 kg (08/21/2024) Current Weight: 53.7 kg BMI (Calculated): 23.9 kg/m?? Weight change since admission: 0.9 kg Net IO Since Admission: 1,000 mL [08/22/24 1611] Weight history: Patient reported no issues with weight loss. Per review of EMR, patient's weight has been trending up over the past month after decline 2 months ago. Wt Readings from Last 12 Encounters: 08/21/24 53.7 kg 08/11/24 54.5 kg 07/26/24 54 kg 07/25/24 53.8 kg 07/01/24 44.3 kg 06/27/24 45.4 kg 05/25/24 50.1 kg 05/23/24 50.1 kg 05/11/24 48 kg 05/08/24 47.3 kg 04/30/24 47.3 kg 04/24/24 48.7 kg ASSESSMENT / PLAN Nutrition Diagnosis: Malnutrition (undernutrition) related to chronic illness as evidenced by meeting malnutrition criteria per AND/ASPEN guidelines. Initiated Inadequate oral intake related to current illness as evidenced by patient's report . Initiated Malnutrition Assessment: ASPEN Criteria of Malnutrition: Nutritional Status: Non-severe (moderate) Malnutrition Malnutrition in the Context of: Chronic Illness Based on: Energy Intake: Less than or equal to 75% of estimated energy requirement for greater than or equal to 1 month Interpretation of Weight Loss: No Change Body Fat: Mild Loss Muscle Mass: Mild Loss Fluid Accumulation: Absent Estimated Needs: Total Calorie Needs: 4690-5465 calories/day Method to Estimate Energy Needs: kcal/kg (25-30 kcal/kg) Weight Used for Equation Calculations: 53.7 kg Total Protein Needs: 54 - 81 grams/day (Method to Estimate Protein Needs (g/kg): 1 - 1.5 gm/kg) Weight Used to Calculate Protein Needs (Kg): 53.7 kg Nutrition Intervention: Interventions: Medical food supplement, Vitamin and mineral supplements, Provide counseling strategies to apply nutrition knowledge, Increase nutrient intake with small, frequent meals and/or snacks Monitoring/Evaluation: Nutrition parameter to monitor: Meals/Supplement Intake, Weight Status, Pertinent Labs, Nausea/Vomiting, and Constipation/Diarrhea Desired Outcome: Consume >75% of 4-6 small meals, snacks, shakes/smoothies, and/or oral nutrition supplements daily Recommendations: Continue 100 mg IV thiamine for 3-5 days due to refeeding risk in setting of poor oral intake x 1 week. Closely monitor serum potassium, phosphorus and magnesium due to refeeding risk and replace accordingly. ONS to bolster oral intake. Continue daily vitamin mineral, Vitamin D supplementation. Clinical Nutrition will continue to follow. For questions about patient's nutritional care please contact pager [phone] on weekdays 07:30-16:00 or [phone] on weekends/holidays ([facility]) [phone]. [1] Current Facility-Administered Medications: acetaminophen tablet 650 mg (TylenoL), 650 mg, oral, TID, Barrera Cerda M.D., 650 mg at 08/22/24 0854 chvzuoktxhjni-fxmbpnywid-shcmrtcq in Lipoderm 2%-5%-5% cream 1 g, 1 g, topical, BID PRN, Celena Rodriguez M.D., M.E. [Held by provider] aspirin chewable tablet 81 mg, 81 mg, oral, Daily, Barrera Cerda M.D., 81 mg at 08/22/24 0854 bisacodyL suppository 10 mg (Dulcolax), 10 mg, rectal, Daily PRN, Barrera Cerda M.D. calcium carbonate chewable tablet 400 mg of calcium (Tums), 400 mg of calcium, oral, Q2H PRN, Barrera Cerda M.D. cholecalciferol (vitamin D3) tablet 50 mcg, 50 mcg, oral, Daily, Barrera Cerda M.D., 50 mcg at 08/22/24 0854 diclofenac sodium 1 % gel 2 g (Voltaren), 2 g, topical, 4x Daily, Barrera Cerda M.D., 2 g at 08/22/24 1256 fluticasone propionate 50 mcg/actuation nasal spray 1 spray (Flonase), 1 spray, each nostril, Daily, Barrera Cerda M.D., 1 spray at 08/22/24 0900 HYDROmorphone tablet 2 mg (Dilaudid), 2 mg, oral, Q4H PRN, Barrera Cerda M.D., 2 mgat 08/22/24 1303 insulin aspart U-100 injection 0-9 Units (NovoLOG FlexPen), 0-9 Units, subcutaneous, TID, Pasha Adkins, Pharm.D., R.Ph., BCPS, 1 Units at 08/22/24 1256 insulin glargine injection 7 Units, 7 Units, subcutaneous, BID, Barrera Cerda M.D.,7 Units at 08/22/24 0855 lidocaine 5 % 1 patch (Lidoderm), 1 patch, transdermal, Daily, Barrera Cerda M.D., 1 patch at 08/22/24 0032 sorhkz-kumwbcld-ayrndlj 12,000-38,000-60,[address] capsule 24,000 Units of lipase (Creon), 24,000 Units of lipase, oral, TID with meals, Barrera Cerda M.D., 24,000 Units of lipase at 08/22/24 1233 metoclopramide injection 10 mg (Reglan), 10 mg, intravenous, Q12H PRN, Barrera Cerda M.D., 10 mg at 08/22/24 0459 mirtazapine tablet 15 mg (Remeron), 15 mg, oral, Daily at bedtime, Barrera Cerda M.D. mbxlschmelyu-fwvt-SX-Ca-minerals 400 mcg (folic acid) tablet 1 tablet, 1 tablet, oral, Daily, Barrera Cerda M.D., 1 tablet at 08/22/24 0853 naloxone injection 0.4 mg (Narcan), 0.4 mg, intravenous, PRN, Barrera Cerda M.D. ondansetron (PF) injection 4 mg (Zofran), 4 mg, intravenous, Q6H PRN, Barrera Cerda M.D., 4 mg at 08/22/[address] tablet 40 mg (Protonix), 40 mg, oral, Daily before morning meal, Barrera Cerda M.D., 40 mg at 08/22/24 0639 polyethylene glycol powder packet 17 g (Miralax), 17 g, oral, Daily, Barrera Cerda M.D. polyethylene glycol powder packet 17 g (Miralax), 17 g, oral, Daily PRN, Barrera Cerda M.D. predniSONE tablet 5 mg (Deltasone), 5 mg, oral, Daily, Barrera Cerda M.D., 5 mg at 08/22/24 0854 pregabalin capsule 100 mg (Lyrica), 100 mg, oral, BID, Barrera Cerda M.D., 100 mg at 08/22/24 0854 sennosides-docusate sodium 8.6-50 mg per tablet 1 tablet (Senokot-S), 1 tablet, oral, BID PRN, Barrera Cerda M.D. sennosides-docusate sodium 8.6-50 mg per tablet 1 tablet (Senokot-S), 1 tablet, oral, BID, Barrera Cerda M.D. sodium chloride 0.9 % injection 10 mL, 10 mL, intravenous, PRN, Antonio Olivia M.D. sodium chloride 0.9 % injection 3 mL, 3 mL, intravenous, PRN, Antonio Olivia M.D. sodium chloride 0.9 % injection 3 mL, 3 mL, intravenous, Q12H LAWRENCE, Antonio Olivia M.D. tacrolimus capsule 2 mg (Prograf), 2 mg, sublingual, Daily AM, 2 mg at 08/22/24 0854 AND tacrolimus capsule 2 mg (Prograf), 2 mg, sublingual, Daily PM, Barrera Cerda M.D., 2 mg at08/22/24 0025 thiamine injection 100 mg (Vitamin B-1), 100 mg, intravenous, Daily, Barrera Cerda M.D., 100 mg at 08/22/24 0041 traZODone tablet 50 mg (DesyreL), 50 mg, oral, At bedtime PRN, Barrera Cerda M.D. documented in this encounter Nursing Notes * Blossom Norman R.N. - 08/25/2024 6:11 PM CDT Shift Goals: Clinical Goals for the Shift: Patient will remain free from falls and injury this shift. Pt discharged with all belongings to home. Service came to bedside to answer all questions and concerns. Pt agrees with discharge plan. Pt on room air with no SOB, rates pain 5/10, and shows no signs of bleeding. Pt safety maintained. BP 142/90 (BP Location: Right arm;Upper, Patient Position: Sitting) Pulse 60 Temp 36.8 ??C (Oral) Resp 16 Ht 149.9 cm Wt 53.7 kg LMP (LMP Unknown) SpO2 99% BMI 23.90 kg/m?? Problem: PAIN - ADULT Goal: PT VERBALIZES/DEMONSTRATES [...] fall/fall injury Outcome: Adequate for Discharge Problem: Risk for Compromised Skin Integrity-Other Vp Lab(s) Goal: Risk for Compromised Skin Integrity-Other Vp Lab(s) Outcome: Adequate for Discharge Problem: Risk for Compromised Skin Integrity-Altaf Nutrition Score 1 or 2 Goal: Improve nutritional status to maintain or improve skin integrity. Outcome: Adequate for Discharge * Wenceslao Quiros R.N. - 08/25/2024 4:50 AM CDT Shift Goals: Clinical Goals for the Shift: Patient will remain free from falls and injury this shift. Identify possible barriers to meeting goals/advancing plan of care: Diagnosis End of Shift Summary: Patient received one dose of oral Dilaudid @1930 and then slept for most of the night and received a 2nd dose @0440. Pain seems slightly improved from previous night. Up independent in room. Vitals WNL. Problem: PAIN - ADULT Goal: PT VERBALIZES/DEMONSTRATES [...] Nasal mucous membranes remain intact Outcome: Progressing * Jo Ann Gregorio R.N. - 08/24/2024 1:11 PM CDT Problem: PAIN - ADULT Goal: [...] free from fall/fall injury Outcome: Progressing Problem: Risk for Compromised Skin Integrity-Other Vp Lab(s) Goal: Risk for Compromised Skin Integrity-Other Vp Lab(s) Outcome: Progressing Problem: Risk for Compromised Skin Integrity-Altaf Nutrition Score 1 or 2 Goal: Improve nutritional status to maintain or improve skin integrity. Outcome: Progressing Shift Goals: Clinical Goals for the Shift: Patient will remain free from falls and injury this shift. Identify possible barriers to meeting goals/advancing plan of care: None. End of Shift Summary: This is a pleasant 34 year old female who is being monitored for LLQ abdominal pain and vomiting. Still waiting on biopsy results. Service is going to make adjustments to the current pain regimen. Monitoring with steroids, tacro, and pain control. VSS, on room air. No complaints at this time. Spouse was bedside. * Wenceslao Quiros V. RGabby - 08/24/2024 4:37 AM CDT Shift Goals: Identify possible barriers to meeting goals/advancing plan of care: Diagnosis End of Shift Summary: Patient reporting pain throughout the shift. Patient explained that she thought her Dilaudid would remain q4hr through out the remainder of 08/23 and then switch to q6 on 08/24. Patient was reporting severe pain and was requesting additional pain medication after receiving PRN oral Dilaudid. One time IV dose of Dilaudid was ordered and given. Patient remains independent in room. Vitals sings WNL. Patient was able to eat a small amount of her dinner tray. Problem: PAIN - ADULT Goal: PT VERBALIZES/DEMONSTRATES [...] Goal: Maintain a safe environment Outcome: Progressing * Alba Hagen R.N. - 08/22/2024 5:55 PM CDT Shift Goals: Identify possible barriers to meeting goals/advancing plan of care: Problem: PAIN - ADULT Goal: PT VERBALIZES/DEMONSTRATES [...] free from fall/fall injury Outcome: Progressing Problem: Risk for Compromised Skin Integrity-Other Vp Lab(s) Goal: Risk for Compromised Skin Integrity-Other Vp Lab(s) Outcome: Progressing Problem: Risk for Compromised Skin Integrity-Altaf Nutrition Score 1 or 2 Goal: Improve nutritional status to maintain or improve skin integrity. Outcome: Progressing End of Shift Summary: Pt went for abdominal US, She is scheduled for liver biopsy tomorrow, tolerated some oral intake -vomited up breakfast, pain controlled with order prn dilaudid. documented in this encounter ED Notes * Antonio Olivia M.D. - 08/22/2024 11:59 AM CDT I was present for the critical portion of the procedure(s) performed by the resident, PIV placement I saw the patient with the medical student. I was present for or re-performed the History of Present Illness. I personally performed a Physical Exam and Medical Decision Making. I reviewed medical student documentation and agree or amended. Briefly this is a 34-year-old female with history of liver transplant currently on immunosuppressive therapy presenting to the emergency department with left lower quadrant pain, nausea, vomiting andinability to keep any oral medications, liquids, or food down at home. She denies any fevers or chills. She denies any urinary complaints.This pain and nausea are not new for the patient. She was actually just here 4 days ago with similar symptoms. She is currently enrolled in the pain clinic and on a pain plan. She states today her symptoms are significantly worsened to the point that she can not keep anything down at all including her transplant medications. As such she reached out to the transplant team who recommended evaluation in the emergency department. On exam she is alert and oriented. Mucous membranes are slightly dry. Cardiac exam is unremarkable. Lungs are clear. Abdomen is soft with tenderness in the lower quadrants bilaterally. No rebound or guarding. Bowel sounds are present. Remainder of the exam is unremarkable. Impression report plan: 34-year-old female here with acute on chronic abdominal pain, nausea, and vomiting. She is dehydrated here. By labs she is hemoconcentrated with a hemoglobin of 15.7. LFTs areimproved from most recent labs. Lactate is normal. ECG reveals a sinus Tachycardia. We did discuss benefit of CT versus risks of radiation exposure is the patient has had significant imaging in the past. She did not get imaging with her most recent visit 4 days ago. Given that she feels her symptoms are significantly worsened we did get a CT today. There are no acute findings. Unfortunately the patient is still unable to tolerate any p.o. at this time. This would make it very challenging to take her transplant medications which puts her at risk of complications. As such our plan will be to hospitalize her for symptom control until she is able to eat and drink and get back to her regular outpatient appointments. Patient is transferred in stable condition. Final Diagnoses: as of 08/24/24 1117 Abdominal Pain Nausea And Vomiting Antonio Olivia M.D. 08/22/24 1204 Antonio Olivia M.D. 08/22/24 1204 Antonio Olivia M.D. 08/24/24 1117 Antonio Olivia M.D. 08/24/24 1118 * Maciej Cam - 08/21/2024 7:19 PM CDT SUBJECTIVE CHIEF COMPLAINT/REASON FOR VISIT Flank Pain and Vomiting HISTORY OF PRESENT ILLNESS Catia Brunson is a 34 y.o. female with a complex past medical history most notable for livertransplant in 2022 currently on immunosuppression, chronic pancreatitis, chronic abdominal pain, chronic nausea, and GERD who presents with concern of acute worsening of left lower abdominal pain andnausea/vomiting. She states her current presentation is in line with her most recent ED visit on Aug. She states the only difference is that the severity of her symptoms have continued to increase. She states her pain continues to localized to left lower quadrant although it does radiate to her left flank as well as generalized pain across the lower abdomen. She describes this pain as maximum in severity. Additionally, her vomiting and nausea continued to worsen. She most recently vomited 1 hour prior to arriving at the ED. she states she has not been able medications for the last 8 days. She also states she has not tolerated any oral intake for the last 2 days. She also endorses some diarrhea. She contacted her transplant team who, given severity of symptoms, recommended she be evaluated in the emergency department. REVIEW OF SYSTEMS Constitutional: Positive for appetite change and chills. Negative for fever. HENT: Negative for rhinorrhea and sore throat. Respiratory: Negative for cough, hemoptysis, chest tightness and shortness of breath. Cardiovascular: Negative for chest pain. Gastrointestinal: Positive for abdominal pain, diarrhea, nausea and vomiting. Negative for blood instool and hematemesis. Genitourinary: Positive for decreased urine volume and flank pain. Negative for dysuria and hematuria. Musculoskeletal: Positive for back pain. Allergic/Immunologic: Positive for immunocompromised state. Neurological: Positive for light-headedness. Negative for weakness, numbness and loss of balance. OBJECTIVE Initial Vitals Temperature 08/21/24 1835 37 ??C Pulse Rate 08/21/24 1835 (!) 122 Heart Rate 08/21/24 1900 84 Resp Rate 08/21/24 1835 22 Blood Pressure 08/21/24 1835 104/79 SpO2 08/21/24 1835 95 % Pain Score 08/21/24 1907 8 PHYSICAL EXAMINATION HENT: Mouth/Throat: Oropharynx is clear and moist. Mucous membranes are moist. Cardiovascular: Regular rhythm and normal heart sounds. Pulmonary/Chest: Effort normal and breath sounds normal. Abdominal: Soft. exhibits no distension. There is abdominal tenderness in the left flank and left lower quadrant. There is no rigidity, no rebound and no guarding. Neurological: Alert. Skin: Skin is warm. ASSESSMENT/PLAN Catia Brunson is a 34 y.o. female with a complex past medical history most notable for livertransplant in 2022 currently on immunosuppression, chronic pancreatitis, chronic abdominal pain, and GERD who presents with concern of left lower abdominal pain and nausea/vomiting. Her presentation seems most likely a continuation from her most recent ED visit on August 19. Her pain continues to localize the left lower quadrant. We will obtain baseline labs. We will also aggressively treat her nausea, vomiting, and pain. Given the change in severity of her pain, in association with inability to tolerate oral intake, we have recommended for CT abdomen/pelvis. It seems she will likely need inpatient admission on medicine service for pain management and nausea/vomiting. ED Course as of 08/21/242138Aug 21, 20241954 CBC with Differential, Blood(!): Hemoglobin 15.7(!) Hematocrit 45.3(!) Erythrocytes 5.36(!) MCV 84.5 RBC Distrib Width 11.8(!) Platelet Count 196 Leukocytes 6.1 Neutrophils 3.99 Lymphocytes 1.65 Monocytes 0.33 Eosinophils 0.09 Basophils 0.03 1954 Basic Metabolic Panel(!): Potassium, P 3.6 Sodium, P 138 Chloride, P 103 Bicarbonate, P 20(!) Anion Gap, P 15 BUN (Blood Urea Nitrogen), P 6 Creatinine 0.54(!) Estimated GFR (eGFR) >90 Calcium, Total, P 10.1(!) Glucose, P 166(!) 1954 Hepatic Function Panel(!): Bilirubin, Total, S 0.9 Bilirubin, Direct, S 0.3 Aspartate Aminotransferase (AST), S 73(!) Alanine Aminotransferase (ALT), S 163(!) Alkaline Phosphatase, S 262(!) Albumin, S 4.9 Protein, Total, S 7.7 1954 Lipase(!): Lipase, S 10(!) 1954 Lactate for Sepsis with Reflex: Lactate 1.1 1954 hCG (Human Chorionic Gonadotropin), Quantitative, : HCG, Quantitative, , P 1.[address] Abdomen Pelvis with IV Contrast IMPRESSION: No bowel obstruction. Bilateral corporal luteal cysts. No significant pelvic free fluid to suggest cyst rupture. No acute findings in the abdomen/pelvis. Final Diagnoses: as of 08/21/242138 Abdominal Pain Nausea And Vomiting Maciej Cam 08/21/242139 Maciej Cam 08/21/242221 Cosigned by Antonio Olivia M.D. at 08/22/2024 11:59 AM CDT * Evelina gR R.N. - 08/21/2024 6:42 PM CDT Patient presents for LLQ abdominal pain that radiates to her left flank, she rates her pain 9/10. Patient reports she's been vomiting for almost 9 days, she's a liver transplant patient, she has not been able to take her Tacrolimus. Evelina Rg R.N. 08/21/241844 documented in this encounter Miscellaneous Notes * Documentation Clarification - Celena Rodriguez M.D., M.E. - 08/25/2024 8:23 PM CDT PROVIDER RESPONSE TEXT: To clarify, the appropriate diagnosis supported by the clinical indicators: Hepatic Steatosis of Liver transplant QUERY TEXT: Clarification DOCUMENTATION CLARIFICATION REQUEST Please clarify/specify the appropriate diagnosis supported in the clinical indicators below. Clinical Indicators/Risk Factors/Treatment: CT abdomen pelvis ([facility]) 08/21/24: Postsurgical changes of liver transplant. Hepatic steatosis. Ultrasound Liver transplant (08/21/24 ([facility]): allograft: Diffuse increased echogenicity of the liver parenchyma is again seen compatible with moderate hepatic steatosis. The steatosis limits soundbeam penetration/evaluation of central/deep portions of the liver. Liver biopsy (X[facility] Linh) 08/24/24: Liver, parenchyma, allograft, needle biopsy: Mild acute cellular rejection. Marked macrovesicular steatosis with mild steatohepatitis PN (Jennifer) 08/25/24: 34 y.o. female who presents with left lower quadrant abdominal pain and nausea/vomiting for the last week in the setting of a liver allograft and immunosuppression. She received a liver biopsy on this admission which revealed that she is in acute cellular rejection Options provided: -- Hepatic Steatosis of Liver transplant -- Other - I will add my own diagnosis -- Disagree - Clinically unable to determine / Unknown -- Refer to Clinical Documentation Reviewer Query created by: Diana Hickey on 09/01/2024 12:44 PM Electronically signed by: Celena Rodriguez M.D. 09/04/2024 9:06 AM * Hospital Course - Celena Rodriguez M.D., MNorma. - 08/22/2024 12:14 PM CDT Brief History Prior to Admission Ms. Brusnon was admitted 07/25/2024 to 07/27/2024 for management of chronic abdominal pain thoughtto be secondary to chronic opioid use. She had an appointment to follow up with transplant addiction psychiatry on 08/07/2024 but did not arrive for this appointment per documentation. After discharge, she was seen by her primary care physician on 08/11 with ongoing efforts to wean off Dilaudid, and she [facility] during/after which she was intendedto discontinue her Dilaudid. She was seen in the emergency department on 08/19 for acute on chronic left lower quadrant abdominal pain and nausea; ALT at that time was 223 (increased from 26) and AST 133 (increased from 30). Her symptoms were able to be controlled with p.o. medications and she was discharged with plan to continue sublingual tacrolimus, follow up with transplant outpatient, and continue her ongoing chronic pain regimen. However, she returned to the emergency department on 08/21 for intractable abdominal pain and nausea/vomiting and ongoing inability to tolerate immunosuppressive medications. Emergency Department Course Initial ED vitals were notable for blood pressure of 104/79 and pulse of 122; she was afebrile and pulse quickly normalized without intervention. Laboratory studies were ALT of 163, AST of 73 (both slightly improved from 08/19) alk phos of 262, lipase of 10, and mild polycythemia. CT abdomen pelvis was obtained which was negative for acute pathology. EKG was grossly similar to prior. 2 L IV normalsaline were administered along with Zofran, diphenhydramine, and prochlorperazine for nausea and IVhydromorphone for pain. She was admitted to the Medicine 3 service for further evaluation and management. Medicine 3 Hospital Course (08/21/2024 - 08/25/24) Upon arrival to the floor, she was initiated on a multimodal pain regimen of scheduled Tylenol, oral Dilaudid, and topical modalities; IV pain medications were recommended against by the transplant team. She was continued on volume repletion with IV LR. Morning LFTs demonstrated a rise in AST to 349, ALT to 206, and alk phos to 293. Tacrolimus trough was inadvertently drawn after morning administration; repeat measurement on the morning of 08/23 demonstrated the level was low at 1.8. Repeat drawon 08/24 was 2.0. Right upper quadrant ultrasound of the transplanted liver demonstrated patent blood flow and no hepatic artery thrombosis. Due to concern for acute rejection, she underwent transplanted liver biopsy on 08/23 which revealed that the pathology was consistent with acute cellular rejection. She began IV steroids to try and treat her organ rejection, which consisted of IV solumedrol 1g for 3 doses. She got her first 2 doses in the hospital on 08/23 and 08/25, and will get her final dose outpatient on 08/27 at the infusion center. She decreased her hydromorphone dosing from every 4 hours to every 6 hours on 08/24. She was able to titrate off any IV medications, including pain and antiemetic therapy on 08/25. She remained comfortable and stable throughout the day, and ultimately was deemed safe for discharge home by her primary team and the hepatobiliary team. She discharged on 08/25 in stable condition with close follow up with her primary and GI/hepatobiliary teams. She will have her annual transplant visit with the liverTXP team in early October 2024. documented in this encounter Plan of Treatment Upcoming Encounters Date Type Department Care Team (Latest Contact Info) Description 10/05/2024 9:30 AM CDT Appointment Department of Radiology, [facility] in [place], [place] [address] [place] [phone] Marisabel Carpenter APRN, C.N.P., D.N.P. [address] [place] [phone] 10/05/2024 12:00 PM CDT Appointment Division of Pulmonary Medicine in [place], [place] [address] [place] [phone] Edgar Montgomery M.B.BSumaS., M.S. [address] [place] [phone] 10/05/2024 2:45 PM CDT Infusion Department of Infusion Therapy in [place], [place] [address] [place] [phone] Noreen Ansari P.A.-C., M.S. [address] [place] [phone] 10/10/2024 7:50 AM CDT Lab Department of Laboratory Medicine and Pathology, [facility] in [place], [place] [address] [place] [phone] Marisabel Carpenter APRN, C.N.P., D.N.P. [address] [place] [phone] 10/10/2024 8:00 AM CDT Lab Department of Laboratory Medicine and Pathology, [facility] in [place], [place] [address] [place] [phone] Marisabel Carpenter APRN, C.N.P., D.N.P. [address] [place] [phone] 10/10/2024 8:30 AM CDT Nurse Only Ramirez diaz [facility] in [place], [place] [address] [place] [phone] Marisabel Carpenter APRN, C.N.P., D.N.P. [address] [place] [phone] 10/10/2024 9:20 AM CDT Appointment Department of Radiology, [place], [place] [address] [place] [phone] Marisabel Carpenter APRN, C.N.P., D.N.P. [address] [place] [phone] 10/10/2024 9:45 AM CDT Appointment Department of Laboratory Medicine and Pathology, [place], [place] [address] [place] [phone] Marisabel Carpenter APRN, C.N.P., D.N.P. [address] [place] [phone] 10/10/2024 1:30 PM CDT Appointment Department of Radiology, [facility] in [place], [place] [address] [place] [phone] Marisabel Carpenter APRN, C.N.P., D.N.P. [address] [place] [phone] Discharge Disposition: Home or Self Care 10/10/2024 2:45 PM CDT Appointment Department of Radiology, [facility] in [place], [place] [address] [place] [phone] Marisabel Carpenter APRN, C.N.P., D.N.P. [address] [place] [phone] 10/11/2024 8:00 AM CDT Office Visit [facility] Trans[facility] and Clinical Reg[facility] in [place], [place] [address] [place] [phone] Marisabel Carpenter APRN, CSumaNSumaPSuma, D.N.P. [address] [place] [phone] 10/11/2024 11:00 AM CDT Comprehensive Visit [facility] Transplantation and Clinical Regeneration in [place], [place] [address] [place] [phone] Sree Devlin M.D. [address] [place] [phone] 10/11/2024 1:00 PM CDT Comprehensive Visit Department of Otorhinolaryngology in [place], [place] [address] [place] [phone] Randal Urbano, P.A.-C., M.S. [address] [place] [phone] 10/11/2024 2:00 PM CDT Office Visit [facility] Transplantation and Clinical Regeneration in [place], [place] [address] [place] [phone] Hiro Murillo P.A.-CSuma [address] [place] [phone] 10/11/2024 4:00 PM CDT Comprehensive Visit Department of Dermatology in [place], [place] [address] [place] [phone] Parul Martinez M.D. [address] [place] [phone] 10/12/2024 8:00 AM CDT Telemedicine Ramirez Navarrete [facility] for Transplantation and Clinical Regeneration in [place], [place] [address] [place] [phone] Ervin Mckeon D.O. [address] [place] [phone] 11/01/2024 2:15 PM CDT Appointment Division of Pulmonary Medicine in [place], [place] [address] [place] [phone] Edgar Montgomery M.B.B.S., M.S. [address] [place] [phone] documented as of this encounter Procedures Procedure Name Priority Date/Time Associated Diagnosis Comments GLUCOSE POCT, B Routine 08/25/2024 5:03 PM CDT GLUCOSE POCT, B Routine 08/25/2024 12:34 PM CDT GLUCOSE POCT, B Routine 08/25/2024 12:07 PM CDT BASIC METABOLIC PANEL, S/P Routine 08/25/2024 9:15 AM CDT GLUCOSE POCT, B Routine 08/25/2024 8:27 AM CDT GLUCOSE POCT, B Routine 08/24/2024 10:11 PM CDT GLUCOSE POCT, B Routine 08/24/2024 4:30 PM CDT GLUCOSE POCT, B Routine 08/24/2024 2:18 PM CDT GLUCOSE POCT, B Routine 08/24/2024 7:40 AM CDT HEPATIC FUNCTION PANEL, S Timed 2024 7:04 AM CDT TACROLIMUS LEVEL, B Routine 08/24/2024 7:04 AM CDT CBC WITH DIFFERENTIAL, B Timed 025 7:04 AM CDT PHOSPHORUS (INORGANIC), S Timed 2024 7:04 AM CDT MAGNESIUM, S Timed 08/24/2024 7:04 AM CDT BASIC METABOLIC PANEL, S/P Routine 08/24/2024 7:04 AM CDT GLUCOSE POCT, B Routine 08/23/2024 10:18 PM CDT GLUCOSE POCT, B Routine 08/23/2024 6:21 PM CDT GLUCOSE POCT, B Routine 08/23/2024 12:23 PM CDT PROTHROMBIN TIME (PT), P Routine 025 12:23 PM CDT CBC WITH DIFFERENTIAL, B Routine 025 12:23 PM CDT PHOSPHATIDYLETHANOL CONFIRMATION, B Routine 08/23/2024 12:22 PM CDT HEPATIC FUNCTION PANEL, S Routine 2024 10:46 AM CDT TACROLIMUS LEVEL, B Routine 08/23/2024 10:46 AM CDT PHOSPHORUS (INORGANIC), S Routine 2024 10:46 AM CDT MAGNESIUM, S Routine 08/23/2024 10:46 AM CDT BASIC METABOLIC PANEL, S/P Timed 08/23/2024 10:46 AM CDT LIVER TRANSPLANT BIOPSY RAD - Semiurgent (Fast; most ED patients; some inpatients) 08/23/2024 9:09 AM CDT SURGICAL PATHOLOGY Timed 08/23/2024 8:39 AM CDT Abdominal Pain Nausea And Vomiting GLUCOSE POCT, B Routine 08/23/2024 7:52 AM CDT GLUCOSE POCT, B Routine 08/22/2024 8:39 PM CDT GLUCOSE POCT, B Routine 08/22/2024 6:33 PM CDT PROTHROMBIN TIME (PT), P STAT 025 3:06 PM CDT GLUCOSE POCT, B Routine 08/22/2024 12:16 PM CDT US LIVER TRANSPLANT RAD - Routine (most inpatients and all outpatients) 08/22/2024 11:37 AM CDT TACROLIMUS LEVEL, B Routine 08/22/2024 10:13 AM CDT GLUCOSE POCT, B Routine 08/22/2024 7:58 AM CDT HEPATIC FUNCTION PANEL, S Routine 2024 4:23 AM CDT CBC WITH DIFFERENTIAL, B Routine 025 4:23 AM CDT PHOSPHORUS (INORGANIC), S Routine 2024 4:23 AM CDT MAGNESIUM, S Routine 08/22/2024 4:23 AM CDT BASIC METABOLIC PANEL, S/P Routine 08/22/2024 4:[address] ABDOMEN PELVIS WITH IV CONTRAST RAD - Semiurgent (Fast; most ED patients; some inpatients) 08/21/2024 8:[address] PERIPHERAL IV Routine 08/21/2024 8:32 PM CDT LACTATE FOR SEPSIS WITH REFLEX STAT 08/21/2024 6:47 PM CDT HEPATIC FUNCTION PANEL, S STAT 2024 6:47 PM CDT CBC WITH DIFFERENTIAL, B STAT 025 6:47 PM CDT HUMAN CHORIONIC GONADOTROPIN (HCG), EDDI, STAT 08/21/2024 6:47 PM CDT LIPASE, S/P STAT 08/21/2024 6:47 PM CDT BASIC METABOLIC PANEL, S/P STAT 08/21/2024 6:47 PM CDT ECG STAT 08/21/2024 6:44 PM CDT documented in this encounter Results * (ABNORMAL) Glucose, POCT (08/25/2024 5:03 PM CDT) Pathologist [facility] Glucose, POCT, B 391(H) 70 - 140 mg/dL 08/25/2024 5:14 PM CDT PCLX Site Capillary 08/25/2024 5:14 PM CDT PCLX Last Intake 3-4 hours 08/25/2024 5:14 PM CDT PCLX Blood 08/25/2024 5:03 PM CDT 08/25/2024 5:14 PM CDT us Unknown Provider LAB POCT ORDERABLES-MANUAL Lupe l Result POC [facility] [address] [place] [address], [facility] PCLX [facility] POC [address] [place] [address] * Glucose, POCT (08/25/2024 12:34 PM CDT) Pathologist [facility] Glucose, POCT, B 124 70 - 140 mg/dL 08/25/2024 12:36 PM CDT PCLX Site Capillary 08/25/2024 12:36 PM CDT PCLX Last Intake <1 hour 08/25/2024 12:36 PM CDT PCLX Blood 08/25/2024 12:3 4 PM CDT 08/25/2024 12:37 PM CDT us Unknown Provider LAB POCT ORDERABLES-MANUAL Lupe l Result Performing Organization Address City/[facility]/ZIP Co de Phone Number POC [facility] [address] [place] [address], [facility] PCLX [facility] POC [address] [place] [address] * Glucose, POCT (08/25/2024 12:07 PM CDT) Glucose, POCT, B 76 70 - 140 mg/dL 08/25/2024 12:10 PM CDT PCLX Site Capillary 08/25/2024 12:10 PM CDT PCLX Last Intake 2-3 hours 08/25/2024 12:10 PM CDT PCLX Blood 08/25/2024 12:0 7 PM CDT 08/25/2024 12:10 PM CDT us Unknown Provider LAB POCT ORDERABLES-MANUAL Lupe l Result Performing Organization Address [facility] de Phone Number POC [facility] [address] [place] [address], [facility] POC [address] [place] [address] * (ABNORMAL) Basic Metabolic Panel (08/25/2024 9:15 AM CDT) Potassium, S 3.7 3.6 - 5.2 mmol/L 08/25/2024 11:58 AM CDT DTL Sodium, S 141 135 - 145 mmol/L 08/25/2024 11:58 AM CDT DTL Chloride, S 106 98 - 107 mmol/L 08/25/2024 11:58 AM CDT DTL Bicarbonate, S 20(L) 22 - 29 mmol/L 08/25/2024 11:58 AM CDT DTL Anion Gap 15 7 - 15 08/25/2024 11:58 AM CDT DTL BUN (Blood Urea Nitrogen), S 15 6 - 21 mg/dL 08/25/2024 11:58 AM CDT DTL Creatinine 0.56(L) 0.59 - 1.04 mg/dL 08/25/2024 11:58 AM CDT DTL Estimated GFR (eGFR) >90 >=60 mL/min/BSA 08/25/2024 11:58 AM CDT DTL Comment: Estimated GFR calculated using the 2020 CKD_EPI creatinine equation. Calcium, Total, S 9.1 8.6 - 10.0 mg/dL 08/25/2024 11:58 AM CDT DTL Glucose, S 158(H) 70 - 140 mg/dL 08/25/2024 11:58 AM CDT DTL Blood (Blood, Venous) 08/25/2024 9:15 AM CDT 08/25/2024 10:12 AM CDT us Celena Rodriguez M.D., M.E. LAB BLOOD ADD-ON Fi nal Result Performing Organization Address City/[facility]/ZIP Co de Phone Number [facility] [address] [place] [address], [facility] [address] [place] [address] * (ABNORMAL) Glucose, POCT (08/25/2024 8:27 AM CDT) Glucose, POCT, B 193(H) 70 - 140 mg/dL 08/25/2024 8:30 AM CDT PCLX Site Capillary 08/25/2024 8:30 AM CDT PCLX Last Intake > 4 hours 08/25/2024 8:30 AM CDT PCLX Blood 08/25/2024 8:27 AM CDT 08/25/2024 8:30 AM CDT us Unknown Provider LAB POCT ORDERABLES-MANUAL Lupe l Result POC [facility] [address] [place] [id number], [place] [facility] POC [address] [place] [address] * (ABNORMAL) Glucose, POCT (08/24/2024 10:11 PM CDT) Glucose, POCT, B 223(H) 70 - 140 mg/dL 08/24/2024 10:13 PM CDT PCLX Site Capillary 08/24/2024 10:13 PM CDT PCLX Last Intake 2-3 hours 08/24/2024 10:13 PM CDT PCLX Blood 08/24/2024 10:1 1 PM CDT 08/24/2024 10:13 PM CDT us Unknown Provider LAB POCT ORDERABLES-MANUAL Lupe l Result Performing Organization Address [facility]/ZIP Co de Phone Number [facility] [address] [place] [address], [facility] POC [address] [place] [address] * (ABNORMAL) Glucose, POCT (08/24/2024 4:30 PM CDT) Glucose, POCT, B 406(H) 70 - 140 mg/dL 08/24/2024 4:33 PM CDT PCLX Last Intake 3-4 hours 08/24/2024 4:33 PM CDT PCLX Blood 08/24/2024 4:30 PM CDT 08/24/2024 4:33 PM CDT us Unknown Provider LAB POCT ORDERABLES-MANUAL Lupe l Result POC [facility] [address] [place] [address], [facility] P[facility] [address] [place] [address] * (ABNORMAL) Glucose, POCT (08/24/2024 2:18 PM CDT) Glucose, POCT, B 323(H) 70 - 140 mg/dL 08/24/2024 2:23 PM CDT PCLX Site Capillary 08/24/2024 2:23 PM CDT PCLX Last Intake 2-3 hours 08/24/2024 2:23 PM CDT PCLX Blood 08/24/2024 2:18 PM CDT 08/24/2024 2:23 PM CDT Unknown Provider LAB POCT ORDERABLES-MANUAL Lupe l Result Performing Organization Address [facility] de Phone Number [facility] [address] P[facility] POC [address] [place] [address] * (ABNORMAL) Glucose, POCT (08/24/2024 7:40 AM CDT) Glucose, POCT, B 342(H) 70 - 140 mg/dL 08/24/2024 7:42 AM CDT PCLX Site Capillary 08/24/2024 7:42 AM CDT PCLX Blood 08/24/2024 7:40 AM CDT 08/24/2024 7:42 AM CDT us Unknown Provider LAB POCT ORDERABLES-MANUAL Lupe l Result Performing Organization Address [facility] de Phone Number [facility] [address] [facility] POC [address] [place] [address] * (ABNORMAL) Tacrolimus, Trough (08/24/2024 7:04 AM CDT) Tacrolimus, Trough 2.0(L) 5.0-15.0 (Trough) ng/mL 08/24/2024 1:38 PM CDT [facility] Comment: ----ADDITIONAL INFORMATION---- Target steady-state trough concentrations vary depending on the type of transplant, concomitant immunosuppression, clinical/institutional protocols, and time post-transplant. Results should be interpreted in conjunction with this clinical information and any physical signs/symptoms of rejection/toxicity. Testing performed by Liquid Chromatography-Tandem Mass Spectrometry (LC-MS/MS). This test was developed and its performance characteristics determined by [facility] in a manner consistent with CLIA requirements. This test has not been cleared or approved by the U.S. Food and Drug Administration. Blood (Blood, Venous) 08/24/2024 7:04 AM CDT 08/24/2024 9:21 AM CDT us Celena Rodriguez M.D. M.E. LAB BLOOD NON ADD-O N Final Result [facility] [address] [place] [address] [facility] [address] [place] [address] [place] [address] * (ABNORMAL) Basic Metabolic Panel (08/24/2024 7:04 AM CDT) Potassium, S 4.3 3.6 - 5.2 mmol/L 08/24/2024 9:01 AM CDT DTL Sodium, S 133(L) 135 - 145 mmol/L 08/24/2024 9:01 AM CDT DTL Chloride, S 100 98 - 107 mmol/L 08/24/2024 9:01 AM CDT DTL Bicarbonate, S 19(L) 22 - 29 mmol/L 08/24/2024 9:01 AM CDT DTL Anion Gap 14 7 - 15 08/24/2024 9:01 AM CDT DTL BUN (Blood Urea Nitrogen), S 10 6 - 21 mg/dL 08/24/2024 9:01 AM CDT DTL Creatinine 0.55(L) 0.59 - 1.04 mg/dL 08/24/2024 9:01 AM CDT DTL Estimated GFR (eGFR) >90 >=60 mL/min/BSA 08/24/2024 9:01 AM CDT DTL Comment: Estimated GFR calculated using the 2020 CKD_EPI creatinine equation. Calcium, Total, S 10.2(H) 8.6 - 10.0 mg/dL 08/24/2024 9:01 AM CDT DTL Glucose, S 407(CH) 70 - 140 mg/dL 08/24/2024 9:01 AM CDT DTL Blood (Blood, Venous) 08/24/2024 7:04 AM CDT 08/24/2024 7:49 AM CDT Celena Rodriguez M.D., M.E. LAB BLOOD ADD-ON Fi nal Result [facility] [address] [place] [address] * Magnesium (08/24/2024 7:04 AM CDT) Magnesium, S 1.8 1.7 - 2.3 mg/dL 08/24/2024 8:08 AM CDT DTL Blood (Blood, Venous) 08/24/2024 7:04 AM CDT 08/24/2024 7:44 AM CDT Barrera Lewis M.D. LAB BLOOD ADD-O N Final Result Performing Organization Address City/[facility]/ZIP Co de Phone Number [facility] [address] [place], [place] [id number] [place] [address] 200 [place] [address] * Phosphorus Inorganic (08/24/2024 7:04 AM CDT) Phosphorus (Inorganic), S 3.3 2.5 - 4.5 mg/dL 08/24/2024 8:08 AM CDT DTL Blood (Blood, Venous) 08/24/2024 7:04 AM CDT 08/24/2024 7:44 AM CDT Barrera Lewis M.D. LAB BLOOD ADD-O N Final Result Performing Organization Address City/[facility]/ZIP Co de Phone Number [facility] [address] [place] [address], [facility] [address] [place] [address] * (ABNORMAL) Hepatic Function Panel (08/24/2024 7:04 AM CDT) Bilirubin, Total, S 0.7 0.0 - 1.2 mg/dL 08/24/2024 8:08 AM CDT DTL Bilirubin, Direct, S 0.2 0.0 - 0.3 mg/dL 08/24/2024 8:08 AM CDT DTL Aspartate Aminotransferase (AST), S 74(H) 8 - 43 U/L 08/24/2024 8:08 AM CDT DTL Alanine Aminotransferase (ALT), S 221(H) 7 - 45 U/L 08/24/2024 8:08 AM CDT DTL Alkaline Phosphatase, S 316(H) 35 - 104 U/L 08/24/2024 8:08 AM CDT DTL Albumin, S 4.7 3.5 - 5.0 g/dL 08/24/2024 8:08 AM CDT DTL Protein, Total, S 6.9 6.3 - 7.9 g/dL 08/24/2024 8:08 AM CDT DTL Blood (Blood, Venous) 08/24/2024 7:04 AM CDT 08/24/2024 7:44 AM CDT Barrera Lewis M.D. LAB BLOOD ADD-O N Final Result [address] [address], [facility] [place] [address] [place] [address] * (ABNORMAL) CBC with Differential, Blood (08/24/2024 7:04 AM CDT) Pathologist [facility] Hemoglobin 13.5 11.6 - 15.0 g/dL 08/24/2024 7:41 AM CDT DTL Hematocrit 39.4 35.5 - 44.9 % 08/24/2024 7:41 AM CDT DTL Erythrocytes 4.59 3.92 - 5.13 x10(12)/L 08/24/2024 7:41 AM CDT DTL MCV 85.8 78.2 - 97.9 fL 08/24/2024 7:41 AM CDT DTL RBC Distrib Width 11.6(L) 12.2 - 16.1 % 08/24/2024 7:41 AM CDT DTL Platelet Count 170 157 - 371 x10(9)/L 08/24/2024 7:41 AM CDT DTL Leukocytes 5.6 3.4 - 9.6 x10(9)/L 08/24/2024 7:41 AM CDT DTL Neutrophils 4.59 1.56 - 6.45 x10(9)/L 08/24/2024 7:41 AM CDT DHPM Lymphocytes 0.74(L) 0.95 - 3.07 x10(9)/L 08/24/2024 7:41 AM CDT DTL Monocytes 0.26 0.26 - 0.81 x10(9)/L 08/24/2024 7:41 AM CDT DTL Eosinophils <0.03 0.03 - 0.48 x10(9)/L 08/24/2024 7:41 AM CDT DTL Basophils <0.03 0.01 - 0.08 x10(9)/L 08/24/2024 7:41 AM CDT DTL Blood (Blood, Venous) 08/24/2024 7:04 AM CDT 08/24/2024 7:31 AM CDT Barrera Lewis M.D. LAB BLOOD ADD-O N Final Result [facility] [address] [place] [address], [facility] DTL [facility] [address] [place] [address] DHPM [facility] [address] [place] [address] * (ABNORMAL) Glucose, POCT (08/23/2024 10:18 PM CDT) [facility] Glucose, POCT, B 238(H) 70 - 140 mg/dL 08/23/2024 10:20 PM CDT PCLX Site Capillary 08/23/2024 10:20 PM CDT PCLX Last Intake 1-2 hours 08/23/2024 10:20 PM CDT PCLX Blood 08/23/2024 10:1 8 PM CDT 08/23/2024 10:20 PM CDT us Unknown Provider LAB POCT ORDERABLES-MANUAL Lupe l Result Performing Organization Address City/[facility]/ZIP Co de Phone Number POC [facility] [address] [place] [address], [facility] POC [address] [place] [address] * (ABNORMAL) Glucose, POCT (08/23/2024 6:21 PM CDT) Glucose, POCT, B 393(H) 70 - 140 mg/dL 08/23/2024 6:26 PM CDT PCLX Site Capillary 08/23/2024 6:26 PM CDT PCLX Blood 08/23/2024 6:21 PM CDT 08/23/2024 6:27 PM CDT us Unknown Provider LAB POCT ORDERABLES-MANUAL Lupe l Result Performing Organization Address [facility]/ZIP Co de Phone Number POC [facility] [address] [place] [address], [facility] POC [address] [place] [address] * (ABNORMAL) Glucose, POCT (08/23/2024 12:23 PM CDT) Glucose, POCT, B 158(H) 70 - 140 mg/dL 08/23/2024 12:29 PM CDT PCLX Site Capillary 08/23/2024 12:29 PM CDT PCLX Blood 08/23/2024 12:2 3 PM CDT 08/23/2024 12:29 PM CDT Unknown Provider LAB POCT ORDERABLES-MANUAL Lupe l Result Performing Organization Address City/[facility]/ZIP Co de Phone Number POC [facility] [address] [place] [address], [facility] P[facility] POC [address] [place] [address] * Prothrombin Time (PT) (08/23/2024 12:23 PM CDT) Pathologist [facility] Prothrombin Time, P 11.3 9.4 - 12.5 sec 08/23/2024 1:33 PM CDT DTL INR 1.0 0.9 - 1.1 08/23/2024 1:33 PM CDT DTL Comment: ----ADDITIONAL INFORMATION---- Standard intensity warfarin therapeutic range: 2.0 to 3.0 High intensity warfarin therapeutic range: 2.5 to 3.5 Blood (Blood, Venous) 08/23/2024 12:23 PM CDT 08/23/2024 1:01 PM CDT Celena Rodriguez M.D., M.E. LAB BLOOD ADD-ON Fi nal Result [address] [place] [address] * (ABNORMAL) CBC with Differential, Blood (08/23/2024 12:23 PM CDT) Pathologist [facility] Hemoglobin 15.5(H) 11.6 - 15.0 g/dL 08/23/2024 1:17 PM CDT DTL Hematocrit 45.5(H) 35.5 - 44.9 % 08/23/2024 1:17 PM CDT DTL Erythrocytes 5.27(H) 3.92 - 5.13 x10(12)/L 08/23/2024 1:17 PM CDT DTL MCV 86.3 78.2 - 97.9 fL 08/23/2024 1:17 PM CDT DTL RBC Distrib Width 11.7(L) 12.2 - 16.1 % 08/23/2024 1:17 PM CDT DTL Platelet Count 154(L) 157 - 371 x10(9)/L 08/23/2024 1:17 PM CDT DTL Leukocytes 3.4 3.4 - 9.6 x10(9)/L 08/23/2024 1:17 PM CDT DTL Neutrophils 1.47(L) 1.56 - 6.45 x10(9)/L 08/23/2024 1:17 PM CDT DHPM Lymphocytes 1.51 0.95 - 3.07 x10(9)/L 08/23/2024 1:17 PM CDT DTL Monocytes 0.23(L) 0.26 - 0.81 x10(9)/L 08/23/2024 1:17 PM CDT DTL Eosinophils 0.14 0.03 - 0.48 x10(9)/L 08/23/2024 1:17 PM CDT DTL Basophils 0.03 0.01 - 0.08 x10(9)/L 08/23/2024 1:17 PM CDT DTL Blood (Blood, Venous) 08/23/2024 12:23 PM CDT 08/23/2024 1:01 PM CDT Barrera Lewis M.D. LAB BLOOD ADD-O N Final Result [facility] [address] [place] [address], [facility] DTL [facility] [address] [place] [address] [facility] [address] [place] [address] * Phosphatidylethanol Confirmation (08/23/2024 12:22 PM CDT) PEth 16:0/18:1 (POPEth) by LC-MS/MS <10 Cutoff: 10 ng/mL 08/25/2024 1:44 AM CDT [facility] Comment: Phosphatidylethanol (PEth) homologues result interpretation PEth 16:0/18:1 (POPEth) Less than 10 ng/mL: Not detected 10 - 19 ng/mL: Abstinence or light alcohol consumption (<2 drinks per day for several days a week) 20 - 200 ng/mL: Moderate alcohol consumption (up to 4 drinks per day for several days a week) Greater than 200 ng/mL: Heavy alcohol consumption or chronic alcohol use (at least 4 drinks per day several days a week) (Reference: Hazel Werner and Loretta Evangelista 2018 J. Forensic Sci) PEth 16:0/18:2 (PLPEth) by LC-MS/MS <10 Cutoff: 10 ng/mL 08/25/2024 1:44 AM CDT [facility] Comment: PEth 16:0/18:2 (PLPEth) Reference ranges are not well established PEth Interpretation Negative. 08/25 1:44 AM CDT [facility] Comment: ----ADDITIONAL INFORMATION---- This report is intended for use in clinical monitoring and management of patients. It is not intended for use in employment-related testing. This test was developed and its performance characteristics determined by [facility] in a manner consistent with CLIA requirements. This test has not been cleared or approved by the U.S. Food and Drug Administration. Blood (Blood, Venous) 08/23/2024 12:22 PM CDT 08/23/2024 2:46 PM CDT Celena Rodriguez M.D., M.E. LAB BLOOD ADD-ON Fi nal Result [facility] [address] [place] [address] [facility] [address] [place] [address] [place] [address] * (ABNORMAL) Tacrolimus, Trough (08/23/2024 10:46 AM CDT) [facility] Tacrolimus, Trough 1.8(L) 5.0-15.0 (Trough) ng/mL 08/24/2024 1:32 PM CDT [facility] Comment: ----ADDITIONAL INFORMATION---- Target steady-state trough concentrations vary depending on the type of transplant, concomitant immunosuppression, clinical/institutional protocols, and time post-transplant. Results should be interpreted in conjunction with this clinical information and any physical signs/symptoms of rejection/toxicity. Testing performed by Liquid Chromatography-Tandem Mass Spectrometry (LC-MS/MS). This test was developed and its performance characteristics determined by [facility] in a manner consistent with CLIA requirements. This test has not been cleared or approved by the U.S. Food and Drug Administration. Blood (Blood, Venous) 08/23/2024 10:46 AM CDT 08/23/2024 3:57 PM CDT us July Richardson M.D. LAB BLOOD NON ADD-O N Final Result [facility] [address] [place] [address] [facility] [address] [place] [address] [place] [address] * (ABNORMAL) Basic Metabolic Panel (08/23/2024 10:46 AM CDT) [facility] Potassium, S 3.3(L) 3.6 - 5.2 mmol/L 08/23/2024 12:05 PM CDT DTL Sodium, S 142 135 - 145 mmol/L 08/23/2024 12:05 PM CDT DTL Chloride, S 107 98 - 107 mmol/L 08/23/2024 12:05 PM CDT DTL Bicarbonate, S 23 22 - 29 mmol/L 08/23/2024 12:05 PM CDT DTL Anion Gap 12 7 - 15 08/23/2024 12:05 PM CDT DTL BUN (Blood Urea Nitrogen), S 6 6 - 21 mg/dL 08/23/2024 12:05 PM CDT DTL Creatinine 0.62 0.59 - 1.04 mg/dL 08/23/2024 12:05 PM CDT DTL Estimated GFR (eGFR) >90 >=60 mL/min/BSA 08/23/2024 12:05 PM CDT DTL Comment: Estimated GFR calculated using the 2020 CKD_EPI creatinine equation. Calcium, Total, S 8.8 8.6 - 10.0 mg/dL 08/23/2024 12:05 PM CDT DTL Glucose, S 155(H) 70 - 140 mg/dL 08/23/2024 12:05 PM CDT DTL Blood (Blood, Venous) 08/23/2024 10:46 AM CDT 08/23/2024 11:02 AM CDT us July Richardson M.D. LAB BLOOD ADD-ON Fi nal Result [facility] [address] [place] [address] * Magnesium (08/23/2024 10:46 AM CDT) Magnesium, S 1.8 1.7 - 2.3 mg/dL 08/23/2024 12:04 PM CDT DTL Blood (Blood, Venous) 08/23/2024 10:46 AM CDT 08/23/2024 11:02 AM CDT Barrera Lewis M.D. LAB BLOOD ADD-O N Final Result [facility] [address] [place] [address] * Phosphorus Inorganic (08/23/2024 10:46 AM CDT) Phosphorus (Inorganic), S 3.8 2.5 - 4.5 mg/dL 08/23/2024 12:04 PM CDT DTL Blood (Blood, Venous) 08/23/2024 10:46 AM CDT 08/23/2024 11:02 AM CDT Barrera Lewis M.D. LAB BLOOD ADD-O N Final Result [facility] [address] [place] [address] * (ABNORMAL) Hepatic Function Panel (08/23/2024 10:46 AM CDT) Bilirubin, Total, S 0.9 0.0 - 1.2 mg/dL 08/23/2024 12:04 PM CDT DTL Bilirubin, Direct, S 0.3 0.0 - 0.3 mg/dL 08/23/2024 12:04 PM CDT DTL Aspartate Aminotransferase (AST), S 150(H) 8 - 43 U/L 08/23/2024 12:04 PM CDT DTL Alanine Aminotransferase (ALT), S 242(H) 7 - 45 U/L 08/23/2024 12:04 PM CDT DTL Alkaline Phosphatase, S 300(H) 35 - 104 U/L 08/23/2024 12:04 PM CDT DTL Albumin, S 4.0 3.5 - 5.0 g/dL 08/23/2024 12:04 PM CDT DTL Protein, Total, S 6.1(L) 6.3 - 7.9 g/dL 08/23/2024 12:04 PM CDT DTL Blood (Blood, Venous) 08/23/2024 10:46 AM CDT 08/23/2024 11:02 AM CDT Barrera Lewis M.D. LAB BLOOD [place] [address], [facility] [address] [place] [address] * US Liver Transplant Biopsy (08/23/2024 9:09 AM CDT) Anatomical Region Laterality Modality Abdomen, Ultrasound RST LOS, Ultrasound ARZ LOS, Procedure FLA LOS, Abdominal FLA LOS, Procedural, Procedural NWWI LOS N/A Ultrasound Impressions 08/23/2024 10:45 AM CDT Ultrasound-guided hepatic allograft biopsy. NR Narrative 08/23/2024 10:45 AM CDT EXAM: US LIVER TRANSPLANT BIOPSY PRE-PROCEDURE: Patient seen, evaluated, history reviewed, and [...] specimen identification data. INTRAPROCEDURE: Moderate sedation was administered by sedation nurse under my supervision. The patient was continuously monitored with real time oxygen saturation, heart rate, ECG rhythm strip and blood pressure throughout administration of the sedation and performance of the procedure. The total intra-procedural sedation time was: 10 minutes. TECHNIQUE: Sterile. 1% lidocaine for local anesthesia. Location: Right lobe parenchymal biopsy of the hepatic allograft Target lesion size: NA Needle size: 18-gauge Number of passes: 1 Complication: None. Blood loss: No significant PATIENT INSTRUCTIONS: Patient may be dismissed from the radiology department when dismissal criteria met. POST-PROCEDURE DIAGNOSIS: Hepatic allograft biopsy Procedure Note Sree Lund M.D. - 08/23/2024 EXAM: US LIVER TRANSPLANT BIOPSY PRE-PROCEDURE: Patient seen, evaluated, history reviewed, and approved forsedation. Airway, heart, and lung exam satisfactory for sedation.Discussed risks, benefits, alternatives for procedure, and/or sedation.The roles and responsibilities of care team members, residents, and fellows were discussed. Patient understandsinformation and questions answered. Informed consent obtained from thepatient. Immediately prior to starting the procedure, in the presence ofthe assisting personnel, a procedural pause was conducted to verify correct patient identity and verificationof procedure to be performed, and as applicable, correct side and site,correct patient position, availability of implants, special equipment, orspecial requirements, and all image and specimen identification data. INTRAPROCEDURE: Moderate sedation was administered by sedation nurse undermy supervision. The patient was continuously monitored with real timeoxygen saturation, heart rate, ECG rhythm strip and blood pressurethroughout administration of the sedation and performance of the procedure. The total intra-procedural sedation timewas: 10 minutes. TECHNIQUE: Sterile. 1% lidocaine for local anesthesia. Location: Right lobe parenchymal biopsy of the hepatic allograft Target lesion size: NA Needle size: 18-gauge Number of passes: 1 Complication: None. Blood loss: No significant PATIENT INSTRUCTIONS: Patient may be dismissed from the radiologydepartment when dismissal criteria met. POST-PROCEDURE DIAGNOSIS: Hepatic allograft biopsy IMPRESSION: Ultrasound-guided hepatic allograft biopsy. NR Amparo Loo M.D. [facility] US PROCEDURES Final Result * Surgical Pathology (08/23/2024 8:39 AM CDT) 08/24/2024 9:30 AM CDT DTL Report electronically signed by Ximena Lund M.D., Ph.D. I verify that I have examined all relevant slides/materials for the specimen(s) and rendered or confirmed the diagnosis. A portion of the testing process was performed at [facility] [employer] site [id number]. 08/24/2024 9:30 AM CDT DTL Gross Description Received in formalin labeled with the patient's name, medical record number, and liver, allograft, parenchymal is a pale pacheco-pacheco softtissue core, 0.1 cm in average diameter and 2.1 cm in length. Specimen is bisected and submitted entirely in cassette A1. Grossed byOER. 08/24/2024 9:30 AM CDT DTL Addendum Trichrome stain shows mild zone 3 pericellular fibrosis. PAS-D stain is unremarkable. Signed by Ximena Lund M.D., Ph.D. 08/24/2024 3:53 PM 08/24/2024 3:53 PM CDT DTL Comment:REVISED RESULTS Interpretation FINAL DIAGNOSIS OLT 3632 (1 year 10-1/2 months) Liver, parenchyma, allograft, needle biopsy: Mild acute cellular rejection. Marked macrovesicular steatosis with mild steatohepatitis. Trichrome stain is pending. (See comment. ) Comment: This needle biopsy is adequate for assessment. The portal tracts show mild inflammation composed of activated lymphocytes and scattered eosinophils. There are mild lymphocytic cholangitis and focal mild venous endothelialitis. The hepatic lobules show marked (70%) macrovesicular steatosis with rare equivocal ballooned hepatocytes, mild lobular inflammation, and a few acidophil bodies. Iron stain is negative. Digital imaging was used in the diagnostic assessment of this case. 08/24/2024 3:53 PM CDT DTL Tissue (Liver, Allograft) 08/23/2024 8:39 AM CDT us Amparo Loo M.D. LAB SURG PATH ORDERABLE S Edited Result - Final Performing Organization Address City/[facility]/ZIP Co de Phone Number [facility] [address] [place] [address], [facility] DTL 200 [facility] [address] [place] [address] * (ABNORMAL) Glucose, POCT (08/23/2024 7:52 AM CDT) Glucose, POCT, B 148(H) 70 - 140 mg/dL 08/23/2024 7:56 AM CDT PCLX Site Capillary 08/23/2024 7:56 AM CDT PCLX Blood 08/23/2024 7:52 AM CDT 08/23/2024 7:56 AM CDT us Unknown Provider LAB POCT ORDERABLES-MANUAL Lupe l Result Performing Organization Address [facility] Co de Phone Number [facility] [address] [place] [address], [facility] PCLX [facility] POC [address] [place] [address] * Glucose, POCT (08/22/2024 8:39 PM CDT) Glucose, POCT, B 110 70 - 140 mg/dL 08/22/2024 8:44 PM CDT PCLX Site Capillary 08/22/2024 8:44 PM CDT PCLX Last Intake 3-4 hours 08/22/2024 8:44 PM CDT [facility] Blood 08/22/2024 8:39 PM CDT 08/22/2024 8:44 PM CDT us Unknown Provider LAB POCT ORDERABLES-MANUAL Lupe l Result Performing Organization Address City/[facility]/ZIP Co de Phone Number [facility] [address] [place] [address], [facility] [address] [place] [address] * Glucose, POCT (08/22/2024 6:33 PM CDT) Glucose, POCT, B 127 70 - 140 mg/dL 08/22/2024 6:36 PM CDT [facility] Site Capillary 08/22/2024 6:36 PM CDT [facility] Last Intake 3-4 hours 08/22/2024 6:36 PM CDT [facility] Blood 08/22/2024 6:33 PM CDT 08/22/2024 6:36 PM CDT Unknown Provider LAB POCT ORDERABLES-MANUAL Lupe l Result Performing Organization Address [facility]/ZIP Co de Phone Number POC [facility] [address] [place] [address], [facility] PCLX [facility] [address] [place] [address] * Prothrombin Time (PT) (08/22/2024 3:06 PM CDT) Prothrombin Time, P 11.8 9.4 - 12.5 sec 08/22/2024 3:25 PM CDT STMA INR 1.1 0.9 - 1.1 08/22/2024 3:25 PM CDT ST[facility] Comment: ----ADDITIONAL INFORMATION---- Standard intensity warfarin therapeutic range: 2.0 to 3.0 High intensity warfarin therapeutic range: 2.5 to 3.5 Blood (Blood, Venous) 08/22/2024 3:06 PM CDT 08/22/2024 3:11 PM CDT Amparo Loo M.D. LAB BLOOD ADD-ON Final Result Performing Organization Address City/[facility]/ZIP Co de Phone Number [facility] [address] [place] [address], [facility] STMA [facility] [address] [place] [address] * (ABNORMAL) Glucose, POCT (08/22/2024 12:16 PM CDT) Glucose, POCT, B 201(H) 70 - 140 mg/dL 08/22/2024 12:25 PM CDT PCLX Blood 08/22/2024 12:1 6 PM CDT 08/22/2024 12:25 PM CDT us Unknown Provider LAB POCT ORDERABLES-MANUAL Lupe l Result POC [facility] [address] [place] [address], [place] PCLX [facility] [place] POC [address] [place] [address] * US Liver Transplant (08/22/2024 11:37 AM CDT) Anatomical Region Laterality Modality Abdomen, Ultrasound RST LOS, Ultrasound ARZ LOS, Ultrasound FLA LOS N/A Ultrasound Impressions 08/22/2024 12:14 PM CDT 1. Liver transplant vasculature is patent with antegrade flow. The main hepatic artery is segmentally obscured by overlying bowel gas, but is patent with antegrade flow where seen. The stented portion of the main hepatic artery is not visualized/obscured by overlying bowel gas. 2. Hepatic arterial RI's measure normal/borderline elevated; similar and improved since prior ultrasound. 3. Again seen is diffuse steatosis of the liver transplant. 4. Unchanged splenomegaly. 5. Mild prominence of the left renal pelvis without any significant associated calyceal dilatation. Narrative 08/22/2024 12:14 PM CDT EXAM: US LIVER TRANSPLANT Exam performed with color and spectral Doppler analysis. COMPARISON: Liver transplant US 02/24/2024; CT abdomen and pelvis 08/21/2024 FINDINGS: Transplant date: 10/10/2022 Hepatic allograft: Diffuse increased echogenicity of the liver parenchyma is again seen compatible with moderate hepatic steatosis. The steatosis limits sound beam penetration/evaluation of central/deep portions of the liver. Considering visualization limitations, no discrete hepatic mass identified. Gallbladder: Absent. Bile ducts: Limited visualization of the extrahepatic bile duct due to overlying bowel gas. No intrahepatic biliary ductal dilatation Doppler Splenic, portal, and hepatic veins are patent with antegrade flow. Limited visualization of the main hepatic artery due to overlying bowel gas. The main hepatic artery is patent with antegrade flow where segmentally seen. The main hepatic artery stent is not visualized on this examination. Hepatic arterial velocities on this exam measure 37-60 cm/s, previously 37-93 cm/s. MHA peak systolic velocity: 48 cm/s, previously 93 cm/s MHA RI: 0.74, previously 0.83-0.84 RHA RI: 0.78, previously 0.79 LHA RI: 0.65, previously 0.73 Resistive indices: Normal/borderline elevated. IVC: Normal where seen. Pancreas: Not seen well due to overlying bowel gas. Right kidney: Length: 12.8 cm. Normal echogenicity. No hydronephrosis. Left kidney: Length: 11.0 cm. Normal echogenicity. Mild prominence of the renal pelvis without any significant calyceal dilatation. Spleen: Splenomegaly. Length: 14.7 cm, not significantly changed since ultrasound 04/16/2024. Aorta: Normal caliber. Other: No ascites. Procedure Note Bernardo Angulo M.D. - 08/22/2024 EXAM: US LIVER TRANSPLANT Exam performed with color and spectral Doppler analysis. COMPARISON: Liver transplant US 02/24/2024; CT abdomen and pelvis08/21/2024 FINDINGS: Transplant date: 10/10/2022 Hepatic allograft: Diffuse increased echogenicity of the liver parenchymais again seen compatible with moderate hepatic steatosis. The steatosislimits sound beam penetration/evaluation of central/deep portions of theliver. Considering visualization limitations, no discrete hepatic mass identified. Gallbladder: Absent. Bile ducts: Limited visualization of the extrahepatic bile duct due tooverlying bowel gas. No intrahepatic biliary ductal dilatation Doppler Splenic, portal, and hepatic veins are patent with antegrade flow.Limited visualization of the main hepatic artery due to overlying bowelgas. The main hepatic artery is patent with antegrade flow wheresegmentally seen. The main hepatic artery stent is not visualized on this examination. Hepatic arterial velocitieson this exam measure 37-60 cm/s, previously 37-93 cm/s. MHA peak systolic velocity: 48 cm/s, previously 93 cm/s MHA RI: 0.74, previously 0.83-0.84 RHA RI: 0.78, previously 0.79 LHA RI: 0.65, previously 0.73 Resistive indices: Normal/borderline elevated. IVC: Normal where seen. Pancreas: Not seen well due to overlying bowel gas. Right kidney: Length: 12.8 cm. Normal echogenicity. No hydronephrosis. Left kidney: Length: 11.0 cm. Normal echogenicity. Mild prominence of therenal pelvis without any significant calyceal dilatation. Spleen: Splenomegaly. Length: 14.7 cm, not significantly changed sinceultrasound 04/16/2024. Aorta: Normal caliber. Other: No ascites. IMPRESSION: 1. Liver transplant vasculature is patent with antegrade flow. The mainhepatic artery is segmentally obscured by overlying bowel gas, but ispatent with antegrade flow where seen. The stented portion of the mainhepatic artery is not visualized/obscured by overlying bowel gas. 2. Hepatic arterial RI's measure normal/borderline elevated; similar andimproved since prior ultrasound. 3. Again seen is diffuse steatosis of the liver transplant. 4. Unchanged splenomegaly. 5. Mild prominence of the left renal pelvis without any significantassociated calyceal dilatation. us Criss Thakkar M.D., M.S. IMG US PROCEDURES Final Result * Tacrolimus, Trough (08/22/2024 10:13 AM CDT) Tacrolimus, Trough 5.8 5.0-15.0 (Trough) ng/mL 08/22/2024 3:25 PM CDT [facility] Comment: ----ADDITIONAL INFORMATION---- Target steady-state trough concentrations vary depending on the type of transplant, concomitant immunosuppression, clinical/institutional protocols, and time post-transplant. Results should be interpreted in conjunction with this clinical information and any physical signs/symptoms of rejection/toxicity. Testing performed by Liquid Chromatography-Tandem Mass Spectrometry (LC-MS/MS). This test was developed and its performance characteristics determined by [facility] in a manner consistent with CLIA requirements. This test has not been cleared or approved by the U.S. Food and Drug Administration. Blood (Blood, Venous) 08/22/2024 10:13 AM CDT 08/22/2024 12:47 PM CDT us Barrera Lewis M.D. LAB BLOOD NON A DD-ON Final Result [facility] [address] [place] [address] [facility] [address] [place] [address] [place] [address] * (ABNORMAL) Glucose, POCT (08/22/2024 7:58 AM CDT) Pathologist [facility] Glucose, POCT, B 167(H) 70 - 140 mg/dL 08/22/2024 8:11 AM CDT PCLX Site Capillary 08/22/2024 8:11 AM CDT PCLX Last Intake > 4 hours 08/22/2024 8:11 AM CDT PCLX Blood 08/22/2024 7:58 AM CDT 08/22/2024 8:11 AM CDT us Unknown Provider LAB POCT ORDERABLES-MANUAL Lupe l Result POC [facility] [address] [place] [address], [facility] PCLX [facility] POC [address] [place] [address] * (ABNORMAL) Basic Metabolic Panel (08/22/2024 4:23 AM CDT) Pathologist [facility] Potassium, S 3.5(L) 3.6 - 5.2 mmol/L 08/22/2024 5:44 AM CDT DTL Sodium, S 141 135 - 145 mmol/L 08/22/2024 5:44 AM CDT DTL Chloride, S 107 98 - 107 mmol/L 08/22/2024 5:44 AM CDT DTL Bicarbonate, S 24 22 - 29 mmol/L 08/22/2024 5:44 AM CDT DTL Anion Gap 10 7 - 15 08/22/2024 5:44 AM CDT DTL BUN (Blood Urea Nitrogen), S 4(L) 6 - 21 mg/dL 08/22/2024 5:44 AM CDT DTL Creatinine 0.56(L) 0.59 - 1.04 mg/dL 08/22/2024 5:44 AM CDT DTL Estimated GFR (eGFR) >90 >=60 mL/min/BSA 08/22/2024 5:44 AM CDT DTL Comment: Estimated GFR calculated using the 2020 CKD_EPI creatinine equation. Calcium, Total, S 8.5(L) 8.6 - 10.0 mg/dL 08/22/2024 5:44 AM CDT DTL Glucose, S 226(H) 70 - 140 mg/dL 08/22/2024 5:44 AM CDT DTL Blood (Blood, Venous) 08/22/2024 4:23 AM CDT 08/22/2024 5:29 AM CDT Barrera Lewis M.D. LAB BLOOD ADD-O N Final Result [facility] [address] [place] [address], [facility] [address] [place] [address] * Magnesium (08/22/2024 4:23 AM CDT) Magnesium, S 1.8 1.7 - 2.3 mg/dL 08/22/2024 5:44 AM CDT DTL Blood (Blood, Venous) 08/22/2024 4:23 AM CDT 08/22/2024 5:29 AM CDT Barrera Lewis M.D. LAB BLOOD ADD-O N Final Result [facility] [address] [place] [address], [facility] [address] [place] [address] * Phosphorus Inorganic (08/22/2024 4:23 AM CDT) Phosphorus (Inorganic), S 3.1 2.5 - 4.5 mg/dL 08/22/2024 5:44 AM CDT DTL Blood (Blood, Venous) 08/22/2024 4:23 AM CDT 08/22/2024 5:29 AM CDT Barrera Lewis M.D. LAB BLOOD ADD-O N Final Result [facility] [address] [place] [address], [place] [facility] [address] [place] [address] * (ABNORMAL) Hepatic Function Panel (08/22/2024 4:23 AM CDT) Bilirubin, Total, S 1.2 0.0 - 1.2 mg/dL 08/22/2024 5:44 AM CDT DTL Bilirubin, Direct, S 0.9(H) 0.0 - 0.3 mg/dL 08/22/2024 5:44 AM CDT DTL Aspartate Aminotransferase (AST), S 349(H) 8 - 43 U/L 08/22/2024 5:44 AM CDT DTL Alanine Aminotransferase (ALT), S 206(H) 7 - 45 U/L 08/22/2024 5:44 AM CDT DTL Alkaline Phosphatase, S 293(H) 35 - 104 U/L 08/22/2024 5:44 AM CDT DTL Albumin, S 3.7 3.5 - 5.0 g/dL 08/22/2024 5:44 AM CDT DTL Protein, Total, S 5.4(L) 6.3 - 7.9 g/dL 08/22/2024 5:44 AM CDT DTL Blood (Blood, Venous) 08/22/2024 4:23 AM CDT 08/22/2024 5:29 AM CDT Barrera Lewis M.D. LAB BLOOD ADD-O N Final Result [facility] [address] [place] [address], [place] [facility] [address] [place] [address] * (ABNORMAL) CBC with Differential, Blood (08/22/2024 4:23 AM CDT) Hemoglobin 12.9 11.6 - 15.0 g/dL 08/22/2024 5:15 AM CDT DTL Hematocrit 37.8 35.5 - 44.9 % 08/22/2024 5:15 AM CDT DTL Erythrocytes 4.35 3.92 - 5.13 x10(12)/L 08/22/2024 5:15 AM CDT DTL MCV 86.9 78.2 - 97.9 fL 08/22/2024 5:15 AM CDT DTL RBC Distrib Width 11.9(L) 12.2 - 16.1 % 08/22/2024 5:15 AM CDT DTL Platelet Count 133(L) 157 - 371 x10(9)/L 08/22/2024 5:41 AM CDT DTL Leukocytes 4.4 3.4 - 9.6 x10(9)/L 08/22/2024 5:41 AM CDT DTL Neutrophils 2.04 1.56 - 6.45 x10(9)/L 08/22/2024 5:15 AM CDT DHPM Lymphocytes 1.85 0.95 - 3.07 x10(9)/L 08/22/2024 5:15 AM CDT DTL Monocytes 0.34 0.26 - 0.81 x10(9)/L 08/22/2024 5:15 AM CDT DTL Eosinophils 0.19 0.03 - 0.48 x10(9)/L 08/22/2024 5:15 AM CDT DTL Basophils <0.03 0.01 - 0.08 x10(9)/L 08/22/2024 5:15 AM CDT DTL Blood (Blood, Venous) 08/22/2024 4:23 AM CDT 08/22/2024 5:10 AM CDT Barrera Lewis M.D. LAB BLOOD ADD-O N Final Result [facility] [address] [place] [address], [facility] DTL [facility] [address] [place] [address] DHPM [facility] [address] * CT Abdomen Pelvis with IV Contrast (08/21/2024 8:54 PM CDT) Anatomical Region Laterality Modality Abdomen, Pelvis, Abdominal R ST LOS, Abdominal ARZ LOS, Abdominal FLA LOS N/A Computed Tomograp hy, Computed Tomography 08/21/2024 8:52 PM CDT Impressions 08/21/2024 9:26 PM CDT No bowel obstruction. Bilateral corporal luteal cysts. No significant pelvic free fluid to suggest cyst rupture. No acute findings in the abdomen/pelvis. Narrative 08/21/2024 9:26 PM CDT EXAM: CT ABDOMEN PELVIS WITH IV CONTRAST COMPARISON: Noncontrast CT abdomen pelvis 07/25/2024, contrast-enhanced CT abdomen pelvis 06/21/2024 FINDINGS: Bilateral corpus luteal cysts. Trace physiologic free pelvic fluid. IUD. Probable uterine fibroid. Normal caliber small and large bowel. Negative appendix. Postsurgical changes of liver transplant. Hepatic steatosis. Cholecystectomy. Stable mild splenomegaly, measuring 13.3 cm. Negative adrenal glands. Atrophic pancreas with parenchymal calcifications and dilatation of the main pancreatic duct up to 6 mm, compatible with chronic pancreatitis. Stable punctate, nonobstructing left upper pole renal calculus. No hydronephrosis. No abdominopelvic lymphadenopathy. Normal caliber abdominal aorta. No acute osseous abnormality. Stable multiple thoracolumbar compression deformities. Visualized lung bases are clear. Procedure Note Kimmy Ponce M.D. - 08/21/2024 EXAM: CT ABDOMEN PELVIS WITH IV CONTRAST COMPARISON: Noncontrast CT abdomen pelvis 07/25/2024, contrast-enhanced CTabdomen pelvis 06/21/2024 FINDINGS: Bilateral corpus luteal cysts. Trace physiologic free pelvic fluid. IUD.Probable uterine fibroid. Normal caliber small and large bowel. Negative appendix. Postsurgicalchanges of liver transplant. Hepatic steatosis. Cholecystectomy. Stablemild splenomegaly, measuring 13.3 cm. Negative adrenal glands. Atrophicpancreas with parenchymal calcifications and dilatation of the main pancreatic duct up to 6 mm, compatible withchronic pancreatitis. Stable punctate, nonobstructing left upper polerenal calculus. No hydronephrosis. No abdominopelvic lymphadenopathy.Normal caliber abdominal aorta. No acute osseous abnormality. Stable multiple thoracolumbar compressiondeformities. Visualized lung bases are clear. IMPRESSION: No bowel obstruction. Bilateral corporal luteal cysts. No significantpelvic free fluid to suggest cyst rupture. No acute findings in theabdomen/pelvis. Antonio Olivia M.D. IMG CT PROCEDURES Final R esult * Peripheral Venous Access (08/21/2024 8:32 PM CDT) Narrative Britta Lamb M.D. - 08/21/2024 8:32 PM CDT Britta Lamb M.D. 08/21/2024 8:33 PM Peripheral Venous Access Performed by: Britta Lamb M.D. Authorized by: Antonio Olivia M.D. PROCEDURE DETAILS Ultrasound image guidance used to localize target, identify at risk structures, and dynamically used to direct therapy to the target. Image(s) not saved. Size (gauge): 18 G Number of attempts: 1 CONSENT Consent obtained: verbal Consent given by: patient PRE-PROCEDURE DETAILS Indication: IV access needed Provider performed due to: complicated insertion Location: upper extremity Upper extremity: right arm Skin preparation: chlorhexidine SEDATION / ANESTHESIA Anesthesia method: none POST-PROCEDURE DETAILS: Assessment: free fluid flow and no signs of infiltration Procedure completed successfully: yes Complications: no immediate complications Antonio Olivia M.D. IV THERAPY ORDERABLES Fin al Result * hCG (Human Chorionic Gonadotropin), Quantitative, (08/21/2024 6:47 PM CDT) HCG, Quantitative, , P 1.0 <5 IU/L 08/21/2024 7:12 PM CDT STMA Blood (Blood, Venous) 08/21/2024 6:47 PM CDT 08/21/2024 6:53 PM CDT Antonio Olivia M.D. LAB BLOOD ADD-ON Final Re sult [facility] [address] [place] [address], [facility] [address] [place] [address] * Lactate for Sepsis with Reflex (08/21/2024 6:47 PM CDT) [facility] Lactate, P 1.1 0.5 - 2.2 mmol/L 08/21/2024 7:07 PM CDT STMA Blood (Blood, Venous) 08/21/2024 6:47 PM CDT 08/21/2024 6:53 PM CDT us Antonio Olivia M.D. LAB BLOOD NON ADD-ON Lupe l Result [facility] [address] [place] [address], [facility] [address] [place] [address] * (ABNORMAL) CBC with Differential, Blood (08/21/2024 6:47 PM CDT) [facility] Hemoglobin 15.7(H) 11.6 - 15.0 g/dL 08/21/2024 6:58 PM CDT STMA Hematocrit 45.3(H) 35.5 - 44.9 % 08/21/2024 6:58 PM CDT STMA Erythrocytes 5.36(H) 3.92 - 5.13 x10(12)/L 08/21/2024 6:58 PM CDT STMA MCV 84.5 78.2 - 97.9 fL 08/21/2024 6:58 PM CDT STMA RBC Distrib Width 11.8(L) 12.2 - 16.1 % 08/21/2024 6:58 PM CDT STMA Platelet Count 196 157 - 371 x10(9)/L 08/21/2024 6:58 PM CDT STMA Leukocytes 6.1 3.4 - 9.6 x10(9)/L 08/21/2024 6:58 PM CDT STMA Neutrophils 3.99 1.56 - 6.45 x10(9)/L 08/21/2024 6:58 PM CDT DHPM Lymphocytes 1.65 0.95 - 3.07 x10(9)/L 08/21/2024 6:58 PM CDT STMA Monocytes 0.33 0.26 - 0.81 x10(9)/L 08/21/2024 6:58 PM CDT STMA Eosinophils 0.09 0.03 - 0.48 x10(9)/L 08/21/2024 6:58 PM CDT STMA Basophils 0.03 0.01 - 0.08 x10(9)/L 08/21/2024 6:58 PM CDT STMA Blood (Blood, Venous) 08/21/2024 6:47 PM CDT 08/21/2024 6:53 PM CDT Antonio Olivia M.D. LAB BLOOD ADD-ON Final Re sult Performing Organization Address City/[facility]/ZIP Co de Phone Number [facility] [address] [place] [address], [facility] STMA [facility] [address] [place] [address] DHPM [facility] [address] [place] [address] * (ABNORMAL) Lipase (08/21/2024 6:47 PM CDT) Lipase, S 10(L) 13 - 60 U/L 08/21/2024 7: 41 PM CDT DTL Blood (Blood, Venous) 08/21/2024 6:47 PM CDT 08/21/2024 7:16 PM CDT Antonio Olivia M.D. LAB BLOOD ADD-ON Final Re sult Performing Organization Address City/[facility]/ZIP Co de Phone Number [facility] [address] [place] [address], [facility] DTL [facility] [address] [place] [address] * (ABNORMAL) Hepatic Function Panel (08/21/2024 6:47 PM CDT) Bilirubin, Total, S 0.9 0.0 - 1.2 mg/dL 08/21/2024 7:41 PM CDT DTL Bilirubin, Direct, S 0.3 0.0 - 0.3 mg/dL 08/21/2024 7:41 PM CDT DTL Aspartate Aminotransferase (AST), S 73(H) 8 - 43 U/L 08/21/2024 7:41 PM CDT DTL Alanine Aminotransferase (ALT), S 163(H) 7 - 45 U/L 08/21/2024 7:41 PM CDT DTL Alkaline Phosphatase, S 262(H) 35 - 104 U/L 08/21/2024 7:41 PM CDT DTL Albumin, S 4.9 3.5 - 5.0 g/dL 08/21/2024 7:41 PM CDT DTL Protein, Total, S 7.7 6.3 - 7.9 g/dL 08/21/2024 7:41 PM CDT DTL Blood (Blood, Venous) 08/21/2024 6:47 PM CDT 08/21/2024 7:16 PM CDT us Antonio Olivia M.D. LAB BLOOD ADD-ON Final Re sult [address] [address], [place] [address] * (ABNORMAL) Basic Metabolic Panel (08/21/2024 6:47 PM CDT) Potassium, P 3.6 3.6 - 5.2 mmol/L 08/21/2024 7:10 PM CDT STMA Sodium, P 138 135 - 145 mmol/L 08/21/2024 7:10 PM CDT STMA Chloride, P 103 98 - 107 mmol/L 08/21/2024 7:10 PM CDT STMA Bicarbonate, P 20(L) 22 - 29 mmol/L 08/21/2024 7:10 PM CDT STMA Anion Gap, P 15 7 - 15 08/21/2024 7:10 PM CDT STMA BUN (Blood Urea Nitrogen), P 6 6 - 21 mg/dL 08/21/2024 7:10 PM CDT STMA Creatinine 0.54(L) 0.59 - 1.04 mg/dL 08/21/2024 7:10 PM CDT STMA Estimated GFR (eGFR) >90 >=60 mL/min/BSA 08/21/2024 7:10 PM CDT STMA Comment: Estimated GFR calculated using the 2020 CKD_EPI creatinine equation. Calcium, Total, P 10.1(H) 8.6 - 10.0 mg/dL 08/21/2024 7:10 PM CDT STMA Glucose, P 166(H) 70 - 140 mg/dL 08/21/2024 7:10 PM CDT STMA Blood (Blood, Venous) 08/21/2024 6:47 PM CDT 08/21/2024 6:53 PM CDT Antonio Olivia M.D. LAB BLOOD ADD-ON Final Re sult [facility] [address] [place] [address], [facility] [address] [place] [address] * ECG 12 Lead (08/21/2024 6:44 PM CDT) Ventricular Rate ECG/Min 134 BPM MUSE IN Interval 136 ms MUSE QRSD Interval 80 ms MUSE QT Interval 272 ms MUSE QTC Interval 406 ms MUSE P [place] 69 degrees MUSE R [place] 228 degrees MUSE T Wave [place] 65 degrees MUSE 08/21/2024 6:44 PM CDT 08/21/2024 6:50 PM CDT Impressions MUSE - 08/21/2024 6:50 PM CDT Poor data quality Sinus tachycardia Right superior axis deviation Nonspecific T wave abnormality When compared with ECG of 25-Jul-2024 13:27, T wave inversion no longer evident in Anterolateral leads Reviewed by STERLING Gomes Narrative Procedure Note Prosper Campbell M.D. - 08/21/2024 IMPRESSION: Poor data quality Sinus tachycardia Right superior axis deviation Nonspecific T wave abnormality When compared with ECG of 25-Jul-2024 13:27, T wave inversion no longer evident in Anterolateral leads Reviewed by STERLING Gomes us Antonio Olivia M.D. ECG ORDERABLES Final Res ult MUSE NA documented in this encounter Visit Diagnoses Diagnosis Abdominal Pain- Primary Abdominal Pain Nausea And Vomiting Transplant Liver (HCC) Nausea Medication Therapy Intermediate Not 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 Chronic Pain Syndrome Nausea And Vomiting documented in this encounter Admitting Diagnoses Diagnosis Nausea And Vomiting documented in this encounter Administered Medications Inactive Administered Medications - up to 3 most recent administrations Medication Order MAR Action Action Date Dose Rate Site acetaminophen tablet 500 mg (TylenoL) 500 mg, oral, Every 6 hours PRN, mild pain or score 1-3 of 10, moderate pain or score 4-6 of 10, severe pain or score 7-10 of 10, Starting on Wed08/23/24 at 0924, PACU (only), (not to exceed 4 grams in 24 hours) acetaminophen tablet 650 mg (TylenoL) 650 mg, oral, 3 times daily, First dose on Wed08/22/24 at 0900 Given 08/25/2024 3:26 PM CDT 650 mg Given 08/25/2024 8:45 AM CDT 650 mg Given 08/24/2024 8:10 PM CDT 650 mg bykakihnkhjqd-kpiauhpags-obviuqpa in Lipoderm 2%-5%-5% cream 1 g 1 g, topical, 2 times daily PRN, as needed for pain for abdominal/flank pain, Starting on Wed08/22/24 at 1328 Given 08/24/2024 8:11 PM CDT 1 g Given 08/24/2024 9:17 AM CDT 1 g Given 08/23/2024 9:10 PM CDT 1 g aspirin chewable tablet 81 mg 81 mg, oral, Daily, First dose on Wed08/22/24 at 0900, On hold since Wed08/22/2024 at 1438 until manually unheld Given 08/22/2024 8:54 AM CDT 81 mg bisacodyL suppository 10 mg (Dulcolax) 10 mg, rectal, Daily PRN, constipation, Starting on Wed08/21/24 at 2345, Ordered sequence of administration: polyethylene glycol, then bisacodyl until BM achieved. calcium carbonate chewable tablet 400 mg of calcium (Tums) 400 mg of calcium, oral, Every 2 hour PRN, heartburn, indigestion, Starting on Wed08/21/24 at 2345, Doses listed are in mg of elemental calcium. Take with food. 500 mg calcium carbonate contains 200 mg of elemental calcium. cholecalciferol (vitamin D3) tablet 50 mcg 50 mcg, oral, Daily, First dose on Wed08/22/24 at 0900, cholecalciferol (vitamin D3) orderable was interchanged for cholecalciferol (vitamin D3) tablet/capsule Given 08/25/2024 8:45 AM C DT 50 mcg Given 08/24/2024 8:57 AM CDT 50 mcg Given 08/23/2024 11:16 AM CDT 50 mcg diclofenac sodium 1 % gel 2 g (Voltaren) 2 g, topical, 4 times daily, First dose on Wed08/22/24 at 0800, Do not exceed 32 g per day, over all affected joints. Use dosing card to measure product. 2 g = 2.25 inches, 4 gm = 4.5 inches. Rinse dosing card after use and save for each administration. Given 08/25/2024 5:10 PM CDT 2 g Given 08/25/2024 8:50 AM CDT 2 g Given 08/22/2024 12:56 PM CDT 2 g diphenhydrAMINE injection 25 mg (BenadryL) 25 mg, intravenous, Once, On Wed08/21/24 at 2006, For 1 dose Given 08/21/2024 8:28 PM CDT 25 mg fentaNYL injection 25 mcg (Sublimaze) 25 mcg, intravenous, Every 2 min PRN, sedation, Administer over 1 minute immediately prior to the procedure. May repeat every 2 minutes to a maximum of 200 mcg, until pain score of 3 or less, or until the patient meets the pain comfort goal, or RASS 0 to -2. Do not give if respiratory rate is less than 8 breaths/minute., Starting on Wed08/23/24 at 0850, For 3 hours, Intraprocedure (RAD), Subsequent doses Given 08/23/2024 9:07 AM CDT 25 mc g Given 08/23/2024 9:01 AM CDT 25 mcg fentaNYL injection 50 mcg (Sublimaze) 50 mcg, intravenous, Once as needed, sedation, Starting on Wed08/23/24 at 0850, For 1 dose, Intraprocedure (RAD), IV Push, Initial dose Given 08/23/2024 8:59 AM CDT 50 mcg fluticasone propionate 50 mcg/actuation nasal spray 1 spray (Flonase) 1 spray, each nostril, Daily, First dose on Wed08/22/24 at 0900, fluticasone intranasal 50 mcg/actuation was interchanged for triamcinolone intranasal Given 08/25/2024 8:48 AM CDT 1 spray Given 08/24/2024 9:03 AM CDT 1 spray Given 08/22/2024 9:00 AM CDT 1 spray heparin (porcine) injection 5,000 Units 5,000 Units, subcutaneous, Every 8 hours scheduled, First dose on Wed08/22/24 at 0600 Given 08/22/2024 5:00 AM CDT 5,000 Units Right Lower Abdomen heparin (porcine) injection 5,000 Units 5,000 Units, subcutaneous, Every 8 hours scheduled, First dose on Wed08/24/24 at 0600 HYDROmorphone (PF) injection 0.4 mg (Dilaudid) 0.4 mg, intravenous, Once, On Wed08/24/24 at 0115, For 1 dose Given 08/24/2024 1:04 AM CDT 0.4 mg HYDROmorphone (PF) injection 1 mg (Dilaudid) 1 mg, intravenous, Every 20 min PRN, moderate pain or score 4-6 of 10, severe pain or score 7-10 of 10, Starting on Wed08/21/24 at 1855, For 3 doses Given 08/21/2024 9:03 PM CDT 1 mg Given 08/21/2024 7:55 PM CDT 1 mg Given 08/21/2024 7:12 PM CDT 1 mg HYDROmorphone tablet 1 mg (Dilaudid) 1 mg, oral, Every 6 hours PRN, pain still uncontrolled 45 minutes after last Dilaudid dose, Starting on Wed08/23/24 at 1505, Does patient have renal impairment, frailty, or advanced age (avoid morphine) and unable to take oxycodone? No, Did the patient fail other oral opioids during hospitalization? No, Does the patient have documented allergies to oxycodone and/or morphine? No, Is the patient on hydromorphone chronically for pain? Yes HYDROmorphone tablet 2 mg (Dilaudid) 2 mg, oral, Every 4 hours PRN, moderate pain or score 4-6 of 10, severe pain or score 7-10 of 10, Starting on Wed08/21/24 at 2356, Does patient have renal impairment, frailty, or advanced age (avoid morphine) and unable to take oxycodone? No, Did the patient fail other oral opioids during hospitalization? No, Does the patient have documented allergies to oxycodone and/or morphine? No, Is the patient on hydromorphone chronically for pain? Yes Given 08/23/2024 4:27 AM CDT 2 mg Given 08/22/2024 9:36 PM CDT 2 mg Given 08/22/2024 5:21 PM CDT 2 mg HYDROmorphone tablet 2 mg (Dilaudid) 2 mg, oral, Once, On Wed08/23/24 at 1015, For 1 dose, Does patient have renal impairment, frailty, or advanced age (avoid morphine) and unable to take oxycodone? No, Did the patient fail other oral opioids during hospitalization? No, Does the patient have documented allergies to oxycodone and/or morphine? No, Is the patient on hydromorphone chronically for pain? Yes Given 08/23/2024 9:55 AM CDT 2 mg HYDROmorphone tablet 2 mg (Dilaudid) 2 mg, oral, Every 6 hours PRN, moderate pain or score 4-6 of 10, severe pain or score 7-10 of 10, Starting on Wed08/23/24 at 1505, Does patient have renal impairment, frailty, or advanced age (avoid morphine) and unable to take oxycodone? No, Did the patient fail other oral opioids during hospitalization? No, Does the patient have documented allergies to oxycodone and/or morphine? No, Is the patient on hydromorphone chronically for pain? Yes Given 08/25/2024 4:48 PM CDT 2 mg Given 08/25/2024 10:47 AM CDT 2 mg Given 08/25/2024 4:42 AM CDT 2 mg insulin aspart U-100 injection 0-9 Units (NovoLOG FlexPen) 0-9 Units, subcutaneous, 3 times daily, First dose on Wed08/22/24 at 0800, Insulin Scale: Custom Correction Scale, Enter custom range and dose: For B - 179: give 0 units 180-219:give 1 unit 220-259:+2 units 260-299: +3 units 300-339: +5 units 340-379: +7 units 380-399:+9 units.Greater than 399:Call service writing Insulin orders Given 08/24/2024 2:19 PM CDT 5 Units Left Upper Arm (Back ) Given 08/24/2024 8:58 AM CDT 7 Units Le ft Upper Arm (Back) Given 08/23/2024 6:23 PM CDT 9 Units Le ft Upper Arm (Back) insulin aspart U-100 injection 0-9 Units (NovoLOG FlexPen) 0-9 Units, subcutaneous, 3 times daily, First dose (after last modification) on Wed08/24/24 at 1715, Insulin Scale: Custom Correction Scale, Enter custom range and dose: For B - 179: give 0 units 180-219:give 1 unit 220-259:+2 units 260-299: +3 units 300-339: +5 units 340-379: +7 units 380-399:+9 units. 400-499: +12 units. Greater than 499:Call service writing Insulin orders Given 08/25/2024 5:07 PM CDT 9 Units Left Upper Arm (Back ) Given 08/25/2024 8:55 AM CDT 1 Units Le ft Upper Arm (Back) Given 08/24/2024 5:43 PM CDT 12 Units Le ft Upper Arm (Back) insulin aspart U-100 injection 10 Units (NovoLOG FlexPen) 10 Units, subcutaneous, 3 times daily, First dose (after last modification) on Wed08/25/24 at 0800 Given 08/25/2024 5:07 PM CDT 10 Units Left Upper Arm (Back ) Given 08/25/2024 8:54 AM CDT 10 Units Le ft Upper Arm (Back) insulin aspart U-100 injection 5 Units (NovoLOG FlexPen) 5 Units, subcutaneous, 3 times daily, First dose on Luz Marina 08/24/24 at 1245 Given 08/24/2024 5:42 PM CDT 5 Units Left Upper Arm (Back ) Given 08/24/2024 2:19 PM CDT 5 Units Le ft Upper Arm (Back) insulin glargine injection 7 Units 7 Units, subcutaneous, 2 times daily, First dose on Wed08/22/24 at 0900 Given 08/25/2024 8:52 AM CDT 7 Units Left Upper Arm (Back ) Given 08/24/2024 10:13 PM CDT 7 Units L eft Lower Abdomen Given 08/24/2024 8:58 AM CDT 7 Units Le ft Upper Arm (Back) iohexoL 300 mg iodine/mL solution 1-200 mL (Omnipaque) 1-200 mL, intravenous, Once in imaging, contrast, Starting on Wed08/21/24 at 2012, For 1 dose, Imaging Protocol Orders, Dose per Radiant Medication Guidelines Given 08/21/2024 8:50 PM CDT 100 mL Lactated Ringer's bolus 1,000 mL 1,000 mL, intravenous, at 1,000 mL/hr, Administer over 1 Hours, Once, On Wed08/21/24 at 2347, For 1 dose New Bag 08/22/2024 12:22 AM CDT 1,000 mL 1000 mL/hr lidocaine 5 % 1 patch (Lidoderm) 1 patch, transdermal, Administer over 12 Hours, Daily, First dose on Wed08/21/24 at 2347, Apply to intact skin for a maximum of 12 hours in a 24-hour period. Medication Applied 08/25/2024 8:49 AM CDT 1 patch Left Upper Abdomen Medication Applied 08/22/2024 12:32 AM CDT 1 patch Left Lower Abdomen mszgta-ycbimxvc-uzydxmh 12,000-38,000-60,[address] capsule 24,000 Units of lipase (Creon) 24,000 Units of lipase, oral, 3 times daily with meals, First dose on Wed08/22/24 at 0800, Do NOT crush or chew. Capsule may be opened and the contents taken without crushing or chewing. Given 08/25/2024 5:10 PM CDT 24,000 Units of lipase Given 08/25/2024 12:21 PM CDT 24,000 Units of lipase Given 08/25/2024 8:45 AM CDT 24,000 Units of lipase methylPREDNISolone sodium succinate 1,000 mg in NaCl 0.9% IVPB 1,000 mg, intravenous, at 116-232 mL/hr, Administer over 15-30 Minutes, Once, On Wed08/23/24 at 1230, For 1 dose New Bag 08/23/2024 1:03 PM CDT 1,000 mg 116 mL/hr methylPREDNISolone sodium succinate 1,000 mg in NaCl 0.9% IVPB 1,000 mg, intravenous, at 116-232 mL/hr, Administer over 15-30 Minutes, Once, On Wed08/25/24 at 0900, For 1 dose New Bag 08/25/2024 9:05 AM CDT 1,000 mg 116 mL/hr methylPREDNISolone sodium succinate 1,000 mg in NaCl 0.9% IVPB 1,000 mg, intravenous, at 116-232 mL/hr, Administer over 15-30 Minutes, Once, On Wed08/27/24 at 0900, For 1 dose metoclopramide injection 10 mg (Reglan) 10 mg, intravenous, Every 12 hours PRN, nausea, vomiting, Starting on Wed08/21/24 at 2350 Given 08/24/2024 7:32 PM CDT 10 mg Given 08/23/2024 11:19 AM CDT 10 mg Given 08/22/2024 4:59 AM CDT 10 mg midazolam (PF) injection 0.5 mg (Versed) 0.5 mg, intravenous, Every 2 min PRN, sedation, RASS -1, Starting on Wed08/23/24 at 0850, For 3 hours, Intraprocedure (RAD), May repeat every 2 minutes for a maximum of 5 mg. Do not give if respiratory rate is less than 8 breaths/minute. Given 08/23/2024 9:01 AM CDT 0.5 mg midazolam (PF) injection 1 mg (Versed) 1 mg, intravenous, Every 2 min PRN, sedation, RASS 0, Starting on Wed08/23/24 at 0850, For 3 hours, Intraprocedure (RAD), May repeat every 2 minutes for a maximum of 5 mg. Do not give if respiratory rate is less than 8 breaths/minute. Given 08/23/2024 8:59 AM CDT 1 mg mirtazapine tablet 15 mg (Remeron) 15 mg, oral, Daily at bedtime, First dose on Wed08/22/24 at 2100 Given 08/24/2024 8:11 PM CDT 15 mg Given 08/23/2024 9:09 PM CDT 15 mg Given 08/22/2024 9:36 PM CDT 15 mg tzeblddxosjx-kwws-CA-Ca-minerals 400 mcg (folic acid) tablet 1 tablet 1 tablet, oral, Daily, First dose on Wed08/22/24 at 0900 Given 08/25/2024 8:44 AM CDT 1 tablet Given 08/24/2024 8:57 AM CDT 1 tablet Given 08/23/2024 11:16 AM CDT 1 tablet NaCl 0.9 % bolus 1,000 mL 1,000 mL, intravenous, at 1,000 mL/hr, Administer over 1 Hours, Once, On Wed08/21/24 at 1840, For 1 dose New Bag 08/21/2024 6:51 PM CDT 1,000 mL 1000 mL/hr NaCl 0.9 % bolus 1,000 mL 1,000 mL, intravenous, at 1,000 mL/hr, Administer over 1 Hours, Once, On Wed08/21/24 at 2127, For 1 dose New Bag 08/21/2024 9:27 PM CDT 1,000 mL 1000 mL/hr naloxone injection 0.4 mg (Narcan) 0.4 mg, intravenous, As needed, reversal, respiratory depression, Starting on Wed08/22/24 at 0002 ondansetron (PF) injection 4 mg (Zofran) 4 mg, intravenous, Once as needed, nausea, vomiting, Starting on Wed08/21/24 at 1839, For 1 dose, Select antiemetic if IV access obtained. Given 08/21/2024 6:54 PM CDT 4 mg ondansetron (PF) injection 4 mg (Zofran) 4 mg, intravenous, Every 6 hours PRN, nausea, vomiting, Starting on Wed08/21/24 at 2342 Given 08/25/2024 8:39 AM CDT 4 mg Given 08/24/2024 2:24 PM CDT 4 mg Given 08/24/2024 8:56 AM CDT 4 mg ondansetron (PF) injection 4 mg (Zofran) 4 mg, intravenous, Every 6 hours PRN, vomiting, nausea, Starting on Wed08/23/24 at 0924, PACU (only), Reassess for nausea or vomiting after at least 10 minutes. If nausea or vomiting persists administer next ordered antiemetic medications (order for antiemetic medication administration ondansetron then prochlorperazine). Given 08/24/2024 3:16 AM CDT [address] tablet 40 mg (Protonix) 40 mg, oral, Daily before morning meal, First dose on Wed08/22/24 at 0700, Swallow whole. Do NOT crush, chew, or split tablet. Given 08/25/2024 4:43 AM CDT 40 mg Given 08/24/2024 6:46 AM CDT 40 mg Given 08/23/2024 6:27 AM CDT 40 mg polyethylene glycol powder packet 17 g (Miralax) 17 g, oral, Daily PRN, constipation, Starting on Wed08/21/24 at 2345, Ordered sequence of administration: polyethylene glycol, then bisacodyl until BM achieved. Avoid mixing with starch-based thickened liquids. potassium bicarb-citric acid disintegrating tablet 40 mEq (Effer-K) 40 mEq, oral, Once, On Wed08/22/24 at 0800, For 1 dose, For K 3-3.4 mEq/L - give total of 40 mEq Dissolve per director of quality recommendations. Do NOT chew or swallow tablet., Monitor the following for replacement: Potassium, Replace Potassium per: Standard Schedule Given 08/22/2024 8:53 AM CDT 40 mEq potassium chloride ER tablet 40 mEq 40 mEq, oral, Once, On Wed08/23/24 at 1600, For 1 dose, For K 3-3.4 mEq/L - give total of 40 mEq Swallow whole. Do NOT crush, chew, or split tablet., Monitor the following for replacement: Potassium, Replace Potassium per: Standard Schedule Given 08/23/2024 5:11 PM CDT 40 mEq predniSONE tablet 5 mg (Deltasone) 5 mg, oral, Daily, First dose on Wed08/22/24 at 0900, On hold since Wed08/24/2024 at 1605 until manually unheld Given 08/24/2024 8:57 AM CDT 5 mg Given 08/23/2024 11:16 AM CDT 5 mg Given 08/22/2024 8:54 AM CDT 5 mg pregabalin capsule 100 mg (Lyrica) 100 mg, oral, 2 times daily, First dose on Wed08/22/24 at 0900 Given 08/24/2024 8:57 AM CDT 100 mg Given 08/23/2024 9:09 PM CDT 100 mg Given 08/23/2024 11:16 AM CDT 100 mg pregabalin capsule 125 mg (Lyrica) 125 mg, oral, 2 times daily, First dose (after last modification) on Wed08/24/24 at 2100 Given 08/25/2024 8:45 AM CDT 125 mg Given 08/24/2024 8:11 PM CDT 125 mg prochlorperazine injection 10 mg (Compazine) 10 mg, intravenous, Once, On Wed08/21/24 at 2006, For 1 dose Given 08/21/2024 8:29 PM CDT 10 mg prochlorperazine tablet 5 mg (Compazine) 5 mg, oral, Every 6 hours PRN, nausea, vomiting, Starting on Wed08/25/24 at 0911 sennosides-docusate sodium 8.6-50 mg per tablet 1 tablet (Senokot-S) 1 tablet, oral, 2 times daily, First dose on Wed08/22/24 at 0900, Do not give if patient has diarrhea. Given 08/25/2024 8:45 AM CDT 1 tablet sodium chloride (PF) 0.9 % injection 1-100 mL 1-100 mL, intravenous, Once, On Wed08/21/24 at 2013, For 1 dose, Imaging Protocol Orders, Dose per Radiant Medication Guidelines Given 08/21/2024 8:49 PM CDT 50 mL sodium chloride 0.9 % injection 10 mL 10 mL, intravenous, As needed, line care, Starting on Wed08/21/24 at 1839, Peripheral Intravenous Catheter and Rapid Infusion Catheter, prior to blood sampling, post blood transfusion or post blood sampling sodium chloride 0.9 % injection 3 mL 3 mL, intravenous, As needed, line care, Starting on Wed08/21/24 at 1839, Prior to and following infusion and between multiple consecutive infusions: sodium chloride 0.9 % injection sodium chloride 0.9 % injection 3 mL 3 mL, intravenous, Every 12 hours scheduled, First dose on Wed08/21/24 at 2100, Peripheral Intravenous Catheter and Rapid Infusion Catheter, when no infusion to maintain patency Given 08/25/2024 8:51 AM CDT 3 mL Given 08/24/2024 8:08 PM CDT 3 mL Given 08/24/2024 9:00 AM CDT 3 mL tacrolimus capsule 2 mg (Prograf) 2 mg, sublingual, Daily AM - immunosuppression, First dose on Wed08/22/24 at 0800, 1. Follow PPE 2 for hazardous drug administration. 2. Gently tap the capsule to deposit all of the content into half of the capsule. 3. Remove the upper portion of the capsule. 4. Deposit the powder under the patient's tongue directly from the capsule and allow to completely dissolve. 5. Instruct patient to not swallow during drug administration. 6. Repeat this process with the next capsule once all remaining powder fragments are dissolved. 7. Instruct patient not to eat or drink anything for 15 minutes following administration., Indications: prevention of liver transplant rejectionIndications:prevention of liver transplant rejection Given 08/25/2024 8:43 AM CDT 2 mg Given 08/24/2024 8:57 AM CDT 2 mg Given 08/23/2024 12:23 PM CDT 2 mg tacrolimus capsule 2 mg (Prograf) 2 mg, sublingual, Daily PM - immunosuppression, First dose on Wed08/22/24 at 0015, 1. Follow PPE 2 for hazardous drug administration. 2. Gently tap the capsule to deposit all of the content into half of the capsule. 3. Remove the upper portion of the capsule. 4. Deposit the powder under the patient's tongue directly from the capsule and allow to completely dissolve. 5. Instruct patient to not swallow during drug administration. 6. Repeat this process with the next capsule once all remaining powder fragments are dissolved. 7. Instruct patient not to eat or drink anything for 15 minutes following administration., Indications: prevention of liver transplant rejectionIndications:prevention of liver transplant rejection Given 08/24/2024 8:10 PM CDT 2 mg Given 08/23/2024 9:09 PM CDT 2 mg Given 08/22/2024 9:36 PM CDT 2 mg thiamine injection 100 mg (Vitamin B-1) 100 mg, intravenous, Daily, First dose on Wed08/22/24 at 0015 Given 08/25/2024 8:42 AM CDT 100 mg Given 08/24/2024 8:56 AM CDT 100 mg Given 08/23/2024 11:16 AM CDT 100 mg documented in this encounter Active and Recently Administered Medications Times are shown in CDT. Scheduled Medication Order 08/23/2024 08/24/2024 08/25/2024 acetaminophen tablet 650 mg (TylenoL) 650 mg, oral, 3 times daily, First dose on Wed08/22/24 at 0900 1119 (Given - Provider: Destiny Mendez, R.N., C.M.S.R.N.)1711 (Given - Provider: Destiny Mendez, Vanessa.Daniele, C.M.S.R.N.)2109 (Given - Provider: Wenceslao Quiros R.N.) 0857 (Given - Provider: Jo Ann Gregorio R.N.)1415 (Given - Provider: Jo Ann Gregorio R.N.)2010 (Given - Provider: Wenceslao Quiros R.N.) 0845 (Given - Provider: Blossom Norman R.N.)1526 (Given - Provider: Blossom Norman R.N.) aspirin chewable tablet 81 mg 81 mg, oral, Daily, First dose on Wed08/22/24 at 0900, On hold since Wed08/22/2024 at 1438 until manually unheld 0900 (Not Given - Provider: Joshua MendezSSumaNSuma, R.NSuma, C.M.S.R.NSuma - Reason: See Provider Order) 0900 (Not Given - Provider: Ciara Long R.N. - Reason: See Provider Order) 0900 (Not Given - Provider: Blossom Norman R.N. - Reason: See Provider Order)2223 (Unheld by provider - Provider: Discharge Provider, Automatic) cholecalciferol (vitamin D3) tablet 50 mcg 50 mcg, oral, Daily, First dose on Wed08/22/24 at 0900, cholecalciferol (vitamin D3) orderable was interchanged for cholecalciferol (vitamin D3) tablet/capsule 1116 (Given - Provider: Rachele Mendez., R.N., C.M.S.R.N.) 0857 (Given - Provider: Jo Ann Gregorio R.N.) 0845 (Given - Provider: Blossom Norman R.N.) diclofenac sodium 1 % gel 2 g (Voltaren) 2 g, topical, 4 times daily, First dose on Wed08/22/24 at 0800, Do not exceed 32 g per day, over all affected joints. Use dosing card to measure product. 2 g = 2.25 inches, 4 gm = 4.5 inches. Rinse dosing card after use and save for each administration. 0843 (Not Given - Provider: Rachele Mendez., R.N., C.M.S.R.N. - Reason: Patient not available)1215 (Not Given - Provider: Joshua MendezSSumaN., R.N., C.M.S.R.N. - Reason: Patient/family refused)1835 (Not Given - Provider: Joshua MendezS.Sera., R.N., C.M.S.R.N. - Reason: Patient/family refused)2014 (Not Given - Provider: Wenceslao Quiros R.N. - Reason: Order parameters not met) 0901 (Not Given - Provider: Jo Ann Gregorio R.N. - Reason: Patient/family refused)1419 (Not Given - Provider: Jo Ann Gregorio R.N. - Reason: Patient/family refused)1701 (Not Given - Provider: Juan Murphy R.N. - Reason: Patient/family refused)2007 (Not Given - Provider: Wenceslao Quiros R.N. - Reason: Patient/family refused) 0850 (Given - Provider: Blossom Norman R.N.)1200 (Due)1710 (Given - Provider: Blossom Norman R.N.) fluticasone propionate 50 mcg/actuation nasal spray 1 spray (Flonase) 1 spray, each nostril, Daily, First dose on Wed08/22/24 at 0900, fluticasone intranasal 50 mcg/actuation was interchanged for triamcinolone intranasal 1000 (Not Given - Provider: Destiny Mendez, Myrtle, Aroldo - Reason: Patient/family refused) 0903 (Given - Provider: Jo Ann Gregorio R.N.) 0848 (Given - Provider: Blossom Norman R.N.) heparin (porcine) injection 5,000 Units 5,000 Units, subcutaneous, Every 8 hours scheduled, First dose on Wed08/24/24 at 0600 0645 (Not Given - Provider: Wenceslao Quiros R.N. - Reason: Patient/family refused)1413 (Not Given - Provider: Jo Ann Gregorio R.N. - Reason: Patient/family refused)2006 (Not Given - Provider: Wenceslao Quiros R.N. - Reason: Patient/family refused) 0443 (Not Given - Provider: Wenceslao Quiros R.N. - Reason: Patient/family refused)1557 (Not Given - Provider: Blossom Norman R.N. - Reason: Patient/family refused) HYDROmorphone (PF) injection 0.4 mg (Dilaudid) (COMPLETED) 0.4 mg, intravenous, Once, On Wed08/24/24 at 0115, For 1 dose 0104 (Given - Provider: Wenceslao Quiros RSumaNSuma) HYDROmorphone tablet 2 mg (Dilaudid) (COMPLETED) 2 mg, oral, Once, On Wed08/23/24 at 1015, For 1 dose, Does patient have renal impairment, frailty, or advanced age (avoid morphine) and unable to take oxycodone? No, Did the patient fail other oral opioids during hospitalization? No, Does the patient have documented allergies to oxycodone and/or morphine? No, Is the patient on hydromorphone chronically for pain? Yes 0955 (Given - Provider: Andrew WelchNSuma) insulin aspart U-100 injection 0-9 Units (NovoLOG FlexPen) (CANCELED) 0-9 Units, subcutaneous, 3 times daily, First dose on Wed08/22/24 at 0800, Insulin Scale: Custom Correction Scale, Enter custom range and dose: For B - 179: give 0 units 180-219:give 1 unit 220-259:+2 units 260-299: +3 units 300-339: +5 units 340-379: +7 units 380-399:+9 units.Greater than 399:Call service writing Insulin orders 0800 (Not Given - Provider: Destiny Mendez, R.N., C.M.S.R.N. - Reason: Order parameters not met)1300 (Not Given - Provider: Destiny Mendez, R.N., C.M.S.R.N. - Reason: See Provider Order)1823 (Given - Provider: Joshua MendezSGabby, R.NSuma, C.M.S.R.N.) 0858 (Given - Provider: Jo Ann Gregorio R.N.)1419 (Given - Provider: Jo Ann Gregorio R.N.) insulin aspart U-100 injection 0-9 Units (NovoLOG FlexPen) 0-9 Units, subcutaneous, 3 times daily, First dose (after last modification) on Wed08/24/24 at 1715, Insulin Scale: Custom Correction Scale, Enter custom range and dose: For B - 179: give 0 units 180-219:give 1 unit 220-259:+2 units 260-299: +3 units 300-339: +5 units 340-379: +7 units 380-399:+9 units. 400-499: +12 units. Greater than 499:Call service writing Insulin orders 1743 (Given - Provider: Juan Murphy R.N.) 0855 (Given - Provider: Blossom Norman R.N. - Comment: bg 193)1213 (Not Given - Provider: Blossom Norman R.N. - Reason: Order parameters not met - Comment: BG 76)1707 (Given - Provider: Blossom Norman R.N. - Comment: bg 391) insulin aspart U-100 injection 10 Units (NovoLOG FlexPen) 10 Units, subcutaneous, 3 times daily, First dose (after last modification) on Wed08/25/24 at 0800 0854 (Given - Provid er: Blossom Norman R.N.)1214 (Not Given - Provider: Blossom Norman R.N. - Reason: Contraindicated - Comment: BG 76)1707 (Given - Provider: Blossom Norman R.N.) insulin aspart U-100 injection 5 Units (NovoLOG FlexPen) (CANCELED) 5 Units, subcutaneous, 3 times daily, First dose on Wed08/24/24 at 1245 1419 (Given - Provider: Jo Ann Gregorio R.N.)1742 (Given - Provider: Juan Murphy R.N.) insulin glargine injection 7 Units 7 Units, subcutaneous, 2 times daily, First dose on Wed08/22/24 at 0900 1120 (Given - Provider: Destiny Mendez, R.NSuma, C.M.S.R.NSuma)2220 (Given - Provider: Wenceslao Quiros R.N.) 0858 (Given - Provider: Jo Ann Gregorio R.N.)2213 (Given - Provider: Wenceslao Quiros R.N.) 0852 (Given - Provider: Blossom Norman R.N.) lidocaine 5 % 1 patch (Lidoderm) 1 patch, transdermal, Administer over 12 Hours, Daily, First dose on Wed08/21/24 at 2347, Apply to intact skin for a maximum of 12 hours in a 24-hour period. 0745 (Not Given - Provider: Destiny Mendez, R.NSuma, C.M.S.R.NSuma - Reason: Patient/family refused) 0854 (Not Given - Provider: Ciara Long R.N. - Reason: Patient/family refused) 0849 (Medication Applied - Provider: Blossom Norman R.N.)2022 (Due: Medication Removed - Provider: Discharge Provider, Automatic - Comment: Time automatically adjusted from order being discontinued) mcfoux-owgmbipj-tqyznlw 12,000-38,000-60,[address] capsule 24,000 Units of lipase (Creon) 24,000 Units of lipase, oral, 3 times daily with meals, First dose on Wed08/22/24 at 0800, Do NOT crush or chew. Capsule may be opened and the contents taken without crushing or chewing. 0757 (Not Given - Provider: Destiny Mendez, R.N., C.M.S.R.N. - Reason: NPO)1223 (Given - Provider: Destiny Mendez, R.N., C.M.S.R.N.)1822 (Given - Provider: Destiny Mendez, R.N., C.M.S.R.N.) 0857 (Given - Provider: Jo Ann Gregorio R.N.)1208 (Given - Provider: Jo Ann Gregorio R.N.)1742 (Given - Provider: Juan Murphy R.N. - Comment: pt wants meds scanned and to leae at bedside) 0845 (Given - Provider: Blossom Norman R.N.)1221 (Given - Provider: Blossom Norman R.N.)1710 (Given - Provider: Blossom Norman R.N.) methylPREDNISolone sodium succinate 1,000 mg in NaCl 0.9% IVPB (COMPLETED) 1,000 mg, intravenous, at 116-232 mL/hr, Administer over 15-30 Minutes, Once, On Wed08/23/24 at 1230, For 1 dose 1303 (New Bag - Provider: Joshua MendezSSumaNSuma, R.N., C.M.S.R.N.) methylPREDNISolone sodium succinate 1,000 mg in NaCl 0.9% IVPB (COMPLETED)(Linked Group 1) 1,000 mg, intravenous, at 116-232 mL/hr, Administer over 15-30 Minutes, Once, On Wed08/25/24 at 0900, For 1 dose 0905 (New Bag - Provider: Blossom Norman R.N.) methylPREDNISolone sodium succinate 1,000 mg in NaCl 0.9% IVPB(Linked Group 1) 1,000 mg, intravenous, at 116-232 mL/hr, Administer over 15-30 Minutes, Once, On Wed08/27/24 at 0900, For 1 dose mirtazapine tablet 15 mg (Remeron) 15 mg, oral, Daily at bedtime, First dose on Wed08/22/24 at 2100 2109 (Given - Provider: Wenceslao Quiros R.N.) 2010 (Given - Provider: Wenceslao Quiros R.N.) qnjhayigoirq-laoq-TP-Ca- minerals 400 mcg (folic acid) tablet 1 tablet 1 tablet, oral, Daily, First dose on Wed08/22/24 at 0900 1116 (Given - Provider: Colleen White M.S.N., R.N., Arian.S.R.N.) 0857 (Given - Provider: Jo Ann Gregorio R.N.) 0844 (Given - Provider: Blossom Norman R.N.) ondansetron ODT disintegrating tablet 4 mg (Zofran-ODT) 4 mg, oral, Once, On Wed08/25/24 at 0930, For 1 dose, When splitting ODT at bedside, handle with gloves and a pill splitter to prevent moisture contact. 0949 (Not Given - Provider: Blossom Norman R.N. - Reason: Other - Comment: Pt had dose of IV Ondansetron) pantoprazole DR tablet 40 mg (Protonix) 40 mg, oral, Daily before morning meal, First dose on Wed08/22/24 at 0700, Swallow whole. Do NOT crush, chew, or split tablet. 0627 (Given - Provider: Harshad Fontana REric.) 0646 (Given - Provider: Andrew ArauzN.) 0443 (Given - Provider: Andrew ArauzN.) polyethylene glycol powder packet 17 g (Miralax) 17 g, oral, Daily, First dose on Wed08/22/24 at 0900, Dissolve in 240 mLs (8 ounces) of water prior to giving. Avoid mixing with starch-based thickened liquids. 0900 (Not Given - Provider: Destiny Mendez, R.Daniele, C.MSumaS.R.N. - Reason: Patient/family refused) 0900 (Not Given - Provider: Jo Ann Gregorio R.N. - Reason: Patient/family refused) 0850 (Not Given - Provider: Blossom Norman R.N. - Reason: Patient/family refused) potassium chloride ER tablet 40 mEq (COMPLETED) 40 mEq, oral, Once, On Wed08/23/24 at 1600, For 1 dose, For K 3-3.4 mEq/L - give total of 40 mEq Swallow whole. Do NOT crush, chew, or split tablet., Monitor the following for replacement: Potassium, Replace Potassium per: Standard Schedule 1711 (Given - Provider: Destiny Mendez, R.NSuma, C.M.S.R.N.) predniSONE tablet 5 mg (Deltasone) 5 mg, oral, Daily, First dose on Wed08/22/24 at 0900, On hold since Wed08/24/2024 at 1605 until manually unheld 1116 (Given - Provider: Joshua MendezSEric., R.N., C.M.S.R.N.) 0857 (Given - Provider: Jo Ann Gregorio R.N.)1605 (Held by provider - Provider: Celena Rodriguez M.D., M.E. - Comment: .) 0900 (Not Given - Provider: Blossom Norman R.NSmua - Reason: See Provider Order)2223 (Unheld by provider - Provider: Discharge Provider, Automatic) pregabalin capsule 100 mg (Lyrica) (CANCELED) 100 mg, oral, 2 times daily, First dose on Wed08/22/24 at 0900 1116 (Given - Provider: Joshua MendezSSumaNSuma, R.N., C.M.S.R.N.)2109 (Given - Provider: Wenceslao Quiros R.N.) 0857 (Given - Provider: Jo Ann Gregorio R.N.) pregabalin capsule 125 mg (Lyrica) 125 mg, oral, 2 times daily, First dose (after last modification) on Wed08/24/24 at 2100 2010 (Given - Provider: Wenceslao Quiros R.N.) 0845 (Given - Provider: Blossom Norman R.N.) sennosides-docusate sodium 8.6-50 mg per tablet 1 tablet (Senokot-S) 1 tablet, oral, 2 times daily, First dose on Wed08/22/24 at 0900, Do not give if patient has diarrhea. 09 (Not Given - Provider: Colleen White, Elizabeth.S.NSuma, R.NSuma, Katrin.Elizabeth.S.R.NSuma - Reason: Patient/family refused)2014 (Not Given - Provider: Wenceslao Quiros R.N. - Reason: Patient/family refused) 0857 (Not Given - Provider: Jo Ann Gregorio R.N. - Reason: Patient/family refused)2007 (Not Given - Provider: Wenceslao Quiros R.N. - Reason: Patient/family refused) 0845 (Given - Provider: Blossom Norman R.N.) sodium chloride 0.9 % injection 3 mL 3 mL, intravenous, Every 12 hours scheduled, First dose on Wed08/21/24 at 2100, Peripheral Intravenous Catheter and Rapid Infusion Catheter, when no infusion to maintain patency 1120 (Given - Provider: Elizabeth Mendez.S.NSuma, R.N., C.M.S.R.NSuma)2109 (Given - Provider: Wenceslao Quiros R.N.) 899 (Given - Provider: Jo Ann Gregorio R.N.)2007 (Given - Provider: Wenceslao Quiros R.N.) 0851 (Given - Provider: Blossom Norman R.N.) tacrolimus capsule 2 mg (Prograf)(Linked Group 2) 2 mg, sublingual, Daily AM - immunosuppression, First dose on Wed08/22/24 at 0800, 1. Follow PPE 2 for hazardous drug administration. 2. Gently tap the capsule to deposit all of the content into half of the capsule. 3. Remove the upper portion of the capsule. 4. Deposit the powder under the patient's tongue directly from the capsule and allow to completely dissolve. 5. Instruct patient to not swallow during drug administration. 6. Repeat this process with the next capsule once all remaining powder fragments are dissolved. 7. Instruct patient not to eat or drink anything for 15 minutes following administration., Indications: prevention of liver transplant rejection 1223 (Given - Provider: Colleen White, M.S.N., R.N., C.M.S.R.N.) 0857 (Given - Provider: Jo Ann Gregorio R.N.) 0843 (Given - Provider: Blossom Norman R.N.) tacrolimus capsule 2 mg (Prograf)(Linked Group 2) 2 mg, sublingual, Daily PM - immunosuppression, First dose on Wed08/22/24 at 0015, 1. Follow PPE 2 for hazardous drug administration. 2. Gently tap the capsule to deposit all of the content into half of the capsule. 3. Remove the upper portion of the capsule. 4. Deposit the powder under the patient's tongue directly from the capsule and allow to completely dissolve. 5. Instruct patient to not swallow during drug administration. 6. Repeat this process with the next capsule once all remaining powder fragments are dissolved. 7. Instruct patient not to eat or drink anything for 15 minutes following administration., Indications: prevention of liver transplant rejection 2108 (Given - Provider: Wenceslao Quiros R.N.) 2009 (Given - Provider: Wenceslao Quiros R.N.) 1999 (Due) thiamine injection 100 mg (Vitamin B-1) 100 mg, intravenous, Daily, First dose on Wed08/22/24 at 0015 1116 (Given - Provider: Colleen White, Elizabeth.S.N., R.N., C.M.S.R.N.) 0856 (Given - Provider: Jo Ann Gregorio R.N.) 0842 (Given - Provider: Blossom Norman R.N.) PRN Medication Order 08/23/2024 08/24/2024 08/25/2024 acetaminophen tablet 500 mg (TylenoL) 500 mg, oral, Every 6 hours PRN, mild pain or score 1-3 of 10, moderate pain or score 4-6 of 10, severe pain or score 7-10 of 10, Starting on Wed08/23/24 at 0924, PACU (only), (not to exceed 4 grams in 24 hours) amitriptyline-gabapentin- ketamine in Lipoderm 2%-5%-5% cream 1 g 1 g, topical, 2 times daily PRN, as needed for pain for abdominal/flank pain, Starting on Wed08/22/24 at 1328 2110 (Given - Provider: Wenceslao Quiros REric.) 916 (Given - Provider: Jo Ann Gregorio RGabby)2010 (Given - Provider: Andrew ArauzN.) bisacodyL suppository 10 mg (Dulcolax) 10 mg, rectal, Daily PRN, constipation, Starting on Wed08/21/24 at 2345, Ordered sequence of administration: polyethylene glycol, then bisacodyl until BM achieved. calcium carbonate chewable tablet 400 mg of calcium (Tums) 400 mg of calcium, oral, Every 2 hour PRN, heartburn, indigestion, Starting on Wed08/21/24 at 2345, Doses listed are in mg of elemental calcium. Take with food. 500 mg calcium carbonate contains 200 mg of elemental calcium. fentaNYL injection 25 mcg (Sublimaze) (CANCELED) 25 mcg, intravenous, Every 2 min PRN, sedation, Administer over 1 minute immediately prior to the procedure. May repeat every 2 minutes to a maximum of 200 mcg, until pain score of 3 or less, or until the patient meets the pain comfort goal, or RASS 0 to -2. Do not give if respiratory rate is less than 8 breaths/minute., Starting on Wed08/23/24 at 0850, For 3 hours, Intraprocedure (RAD), Subsequent doses 0901 (Given - Provider: Tc Haro R.N.)09 (Given - Provider: Tc Haro R.N.) fentaNYL injection 50 mcg (Sublimaze) (COMPLETED) 50 mcg, intravenous, Once as needed, sedation, Starting on Wed08/23/24 at 0850, For 1 dose, Intraprocedure (RAD), IV Push, Initial dose 0859 (Given - Provider: Tc Haro R.N.) HYDROmorphone tablet 1 mg (Dilaudid)(Linked Group 3) 1 mg, oral, Every 6 hours PRN, pain still uncontrolled 45 minutes after last Dilaudid dose, Starting on Wed08/23/24 at 1505, Does patient have renal impairment, frailty, or advanced age (avoid morphine) and unable to take oxycodone? No, Did the patient fail other oral opioids during hospitalization? No, Does the patient have documented allergies to oxycodone and/or morphine? No, Is the patient on hydromorphone chronically for pain? Yes HYDROmorphone tablet 2 mg (Dilaudid) (CANCELED) 2 mg, oral, Every 4 hours PRN, moderate pain or score 4-6 of 10, severe pain or score 7-10 of 10, Starting on Wed08/21/24 at 2356, Does patient have renal impairment, frailty, or advanced age (avoid morphine) and unable to take oxycodone? No, Did the patient fail other oral opioids during hospitalization? No, Does the patient have documented allergies to oxycodone and/or morphine? No, Is the patient on hydromorphone chronically for pain? Yes 3347 (Given - Provider: Harshad Fontana REric.) HYDROmorphone tablet 2 mg (Dilaudid)(Linked Group 3) 2 mg, oral, Every 6 hours PRN, moderate pain or score 4-6 of 10, severe pain or score 7-10 of 10, Starting on Wed08/23/24 at 1505, Does patient have renal impairment, frailty, or advanced age (avoid morphine) and unable to take oxycodone? No, Did the patient fail other oral opioids during hospitalization? No, Does the patient have documented allergies to oxycodone and/or morphine? No, Is the patient on hydromorphone chronically for pain? Yes 0398 (Given - Provider: Hector Gunderson RSumaN.)1438 (Given - Provider: Wenceslao Quiros RSumaN.) 0316 (Given - Provider: Wenceslao Quiros R.N.)0857 (Given - Provider: Jo Ann Gregorio R.N.)1423 (Given - Provider: Jo Ann Gregorio R.N.)1933 (Given - Provider: Juan Murphy R.N.) 0442 (Given - Provider: Wenceslao Qiuros R.N.)1047 (Given - Provider: Blossom Norman R.N.)1648 (Given - Provider: Blossom Norman R.N.) metoclopramide injection 10 mg (Reglan) (CANCELED) 10 mg, intravenous, Every 12 hours PRN, nausea, vomiting, Starting on Wed08/21/24 at 2350 1119 (Given - Provider: Colleen White M.S.N., R.N., AlexandroS.R.N.) 193 (Given - Provider: Juan Murphy R.N.) midazolam (PF) injection 0.5 mg (Versed) (CANCELED) 0.5 mg, intravenous, Every 2 min PRN, sedation, RASS -1, Starting on Wed08/23/24 at 0850, For 3 hours, Intraprocedure (RAD), May repeat every 2 minutes for a maximum of 5 mg. Do not give if respiratory rate is less than 8 breaths/minute. 0901 (Given - Provider: Tc Haro R.N.) midazolam (PF) injection 1 mg (Versed) (CANCELED) 1 mg, intravenous, Every 2 min PRN, sedation, RASS 0, Starting on Wed08/23/24 at 0850, For 3 hours, Intraprocedure (RAD), May repeat every 2 minutes for a maximum of 5 mg. Do not give if respiratory rate is less than 8 breaths/minute. 0859 (Given - Provider: Tc Haro R.N.) naloxone injection 0.4 mg (Narcan) 0.4 mg, intravenous, As needed, reversal, respiratory depression, Starting on Wed08/22/24 at 0002 ondansetron (PF) injection 4 mg (Zofran) (CANCELED) 4 mg, intravenous, Every 6 hours PRN, nausea, vomiting, Starting on Wed08/21/24 at 2342 0332 (Given - Provider: Wenceslao Quiros RGabby)0856 (Given - Provider: Jo Ann Gregorio RSumaNSuma)1424 (Given - Provider: Jo Ann Gregorio RSumaN.) 0839 (Given - Provider: Blossom Norman R.N.) ondansetron (PF) injection 4 mg (Zofran) (CANCELED) 4 mg, intravenous, Every 6 hours PRN, vomiting, nausea, Starting on Wed08/23/24 at 0924, PACU (only), Reassess for nausea or vomiting after at least 10 minutes. If nausea or vomiting persists administer next ordered antiemetic medications (order for antiemetic medication administration ondansetron then prochlorperazine). 0316 (Given - Provider: Wenceslao Quiros R.N.) polyethylene glycol powder packet 17 g (Miralax) 17 g, oral, Daily PRN, constipation, Starting on Wed08/21/24 at 2345, Ordered sequence of administration: polyethylene glycol, then bisacodyl until BM achieved. Avoid mixing with starch-based thickened liquids. prochlorperazine tablet 5 mg (Compazine) 5 mg, oral, Every 6 hours PRN, nausea, vomiting, Starting on Wed08/25/24 at 0911 sennosides-docusate sodium 8.6-50 mg per tablet 1 tablet (Senokot-S) 1 tablet, oral, 2 times daily PRN, constipation, Starting on Wed08/21/24 at 2341 sodium chloride 0.9 % injection 10 mL 10 mL, intravenous, As needed, line care, Starting on Wed08/21/24 at 1839, Peripheral Intravenous Catheter and Rapid Infusion Catheter, prior to blood sampling, post blood transfusion or post blood sampling sodium chloride 0.9 % injection 3 mL 3 mL, intravenous, As needed, line care, Starting on Wed08/21/24 at 1839, Prior to and following infusion and between multiple consecutive infusions: sodium chloride 0.9 % injection traZODone tablet 50 mg (DesyreL) 50 mg, oral, Bedtime PRN, sleep, Starting on Wed08/21/24 at 2342 Linked Groups Order Group 1: methylPREDNISolone sodium succinate 1,000 mg in NaCl 0.9% IVPB (COMPLETED)Jump to med 1,000 mg, intravenous, at 116-232 mL/hr, Administer over 15-30 Minutes, Once, On Wed08/25/24 at 0900, For 1 dose Followed by methylPREDNISolone sodium succinate 1,000 mg in NaCl 0.9% IVPBJump to med 1,000 mg, intravenous, at 116-232 mL/hr, Administer over 15-30 Minutes, Once, On Wed08/27/24 at 0900, For 1 dose Group 2: tacrolimus capsule 2 mg (Prograf)Jump to med 2 mg, sublingual, Daily AM - immunosuppression, First dose on Wed08/22/24 at 0800, 1. Follow PPE 2 for hazardous drug administration. 2. Gently tap the capsule to deposit all of the content into half of the capsule. 3. Remove the upper portion of the capsule. 4. Deposit the powder under the patient's tongue directly from the capsule and allow to completely dissolve. 5. Instruct patient to not swallow during drug administration. 6. Repeat this process with the next capsule once all remaining powder fragments are dissolved. 7. Instruct patient not to eat or drink anything for 15 minutes following administration., Indications: prevention of liver transplant rejection And tacrolimus capsule 2 mg (Prograf)Jump to med 2 mg, sublingual, Daily PM - immunosuppression, First dose on Wed08/22/24 at 0015, 1. Follow PPE 2 for hazardous drug administration. 2. Gently tap the capsule to deposit all of the content into half of the capsule. 3. Remove the upper portion of the capsule. 4. Deposit the powder under the patient's tongue directly from the capsule and allow to completely dissolve. 5. Instruct patient to not swallow during drug administration. 6. Repeat this process with the next capsule once all remaining powder fragments are dissolved. 7. Instruct patient not to eat or drink anything for 15 minutes following administration., Indications: prevention of liver transplant rejection Group 3: HYDROmorphone tablet 2 mg (Dilaudid)Jump to med 2 mg, oral, Every 6 hours PRN, moderate pain or score 4-6 of 10, severe pain or score 7-10 of 10, Starting on Wed08/23/24 at 1505, Does patient have renal impairment, frailty, or advanced age (avoid morphine) and unable to take oxycodone? No, Did the patient fail other oral opioids during hospitalization? No, Does the patient have documented allergies to oxycodone and/or morphine? No, Is the patient on hydromorphone chronically for pain? Yes And HYDROmorphone tablet 1 mg (Dilaudid)Jump to med 1 mg, oral, Every 6 hours PRN, pain still uncontrolled 45 minutes after last Dilaudid dose, Starting on Wed08/23/24 at 1505, Does patient have renal impairment, frailty, or advanced age (avoid morphine) and unable to take oxycodone? No, Did the patient fail other oral opioids during hospitalization? No, Does the patient have documented allergies to oxycodone and/or morphine? No, Is the patient on hydromorphone chronically for pain? Yes documented in this encounter Additional Health Concerns Infection Onset Date Last Indicated Resolved Time Protective Environment 10/10/2022 10/10/2022 Assessment Noted Time PHQ-9 Depression Total Score: 4 08/12/19 25 3:31 PM CDT documented as of this encounter Care Teams Rice Farmer Relationship Specialty Start Date End Date Ana Red MPAS, P.A.-C. [address] [place] [address] [place] [phone] PCP - General Internal Medicine 12/01/21 [facility]- [place] lab 08/25/21 documented as of this encounter
--- OUTSIDE RECORDS SUMMARY | 2024-08-27 08:00 | XMS_ITS | Encounter Summary ---
Author Organization [facility] Address [address] [place] [id number] Care Team Providers Care Menu Planner Name Role Phone Ana Red P.A.-C. Primary Care Pro vider Encounter Details Date Type Department Care Team (Late st Contact Info) Description 08/27/2024 8:00 AM CDT Infusion Department of Infusion Therapy in [place], [place] [address] [place] [phone] Xu Joel Jr., M.D. [address] [place] [phone] Rejection Graft Acute (Primary Dx); Abdominal Pain Social History Tobacco Use Types Packs/Day Years Used Date Smoking Tobacco: Former Cigarettes 1 - 10/12/2021 Passive Smoke Exposure: Never Smokeless Tobacco: Never Comments:Smoked cigarettes f rom age 18-30 about Alcohol Use Standard Drinks/Week Comments Never 0 (1 standard drink = 0.6 oz pure alcohol) Havent had any alcohol in about a year or so. [facility] Utilities Answer Date Recorded In the past 12 months has th e electric, gas, oil, or water company threatened to shut off services in your [...] How often do you attend chur or voodoo services? Patient declined 02/10/2022 Do you belong to any clubs o r organizations such as baptism groups, unions, fraternal [...] Answer Date Recorded PHQ-2 Score 0 08/11/2024 [facility] Occupat ional Health - Occupational Stress [...] your living situation today? I have a [facility] place to live 08/22/2024 Education Answer Date Recorded What is the highest level of school you have completed or the highest degree you have received? Associate degree: occupational, technical, or vocational program 07/16/2021 Comments No Sex and Gender Information Value Date Recorded Sex Assigned at Female 04/12/2021 7:39 PM [employer] Legal Sex Female 7:53 PM [employer] Gender Identity Female 04/12/2021 7:39 PM [employer] Sexual Orientation Straight 04/12/2021 7: 39 PM [employer] documented as of this encounter Last Filed Vital Signs Vital Sign Reading Time Taken Comments Blood Pressure 111/83 08/27/2024 8:05 AM CDT Pulse 97 08/27/2024 8:05 AM CDT Temperature 37.1 C (98.8 F) 08/27/2024 8:05 AM CDT Respiratory Rate 163 08/27/2024 8:05 AM CDT Oxygen Saturation - - Inhaled Oxygen Concentration - - Weight - - Height - - Body Mass Index - - documented in this encounter Plan of Treatment Upcoming Encounters Date Type Department Care Team (Latest Contact Info) Description 10/05/2024 9:30 AM CDT Appointment Department of Radiology, [facility] in [place], [place] [address] [place] [phone] Marisabel Carpenter APRN, C.N.P., D.N.P. [address] [place] [phone] 10/05/2024 12:00 PM CDT Appointment Division of Pulmonary Medicine in [place], [place] [address] [place] [phone] Edgar Montgomery M.B.B.S., M.S. [address] [place] [phone] 10/05/2024 2:45 PM CDT Infusion Department of Infusion Therapy in [place], [place] [address] [place] [phone] Noreen Ansari P.A.-C., M.S. [address] [place] [phone] 10/10/2024 7:50 AM CDT Lab Department of Laboratory Medicine and Pathology, [facility] in [place], [place] [address] [place] [phone] Marisabel Carpenter APRN, C.N.P., D.N.P. [address] [place] [phone] 10/10/2024 8:00 AM CDT Lab Department of Laboratory Medicine and Pathology, [facility] in [place], [place] [address] [place] [phone] Marisabel Carpenter APRN, C.N.PSuma, D.N.P. [address] [place] [phone] 10/10/2024 8:30 AM CDT Nurse Only Ramirez diaz [facility] in [place], [place] [address] [place] [phone] Marisabel Carpenter APRN, C.N.PSuma, D.N.P. [address] [place] [phone] 10/10/2024 9:20 AM CDT Appointment Department of Radiology, [place], [place] [address] [place] [phone] Marisabel Carpenter APRN, Katrin.N.PSuma, D.N.P. [address] [place] [phone] 10/10/2024 9:45 AM CDT Appointment Department of Laboratory Medicine and Pathology, [place], [place] [address] [place] [phone] Marisabel Carpenter APRN, Katrin.N.PSuma, D.N.P. [address] [place] [phone] 10/10/2024 1:30 PM CDT Appointment Department of Radiology, [facility] in [place], [place] [address] [place] [phone] Marisabel Carpenter APRN, C.N.P., D.N.P. [address] [place] [phone] Discharge Disposition: Home or Self Care 10/10/2024 2:45 PM CDT Appointment Department of Radiology, [facility] in [place], [place] [address] [place] [phone] Marisabel Carpenter APRN, C.NDyane, D.N.P. [address] [place] [phone] 10/11/2024 8:00 AM CDT Office Visit [facility] in [place], [place] [address] [place] [phone] Marisabel Carpenter APRN, C.NDayne, D.N.P. [address] [place] [phone] 10/11/2024 11:00 AM CDT Comprehensive Visit [facility] Transplantation and Clinical Regeneration in [place], [place] [address] [place] [phone] Sree Devlin M.D. [address] [place] [phone] 10/11/2024 1:00 PM CDT Comprehensive Visit Department of Otorhinolaryngology in [place], [place] [address] [place] [phone] Randal Urbano, Shanita.Silvano.-C., M.S. [address] [place] [phone] 10/11/2024 2:00 PM CDT Office Visit [facility] Clinical Regeneration in [place], [place] [address] [place] [phone] Hiro Murillo P.A.-C. [address] [place] [phone] 10/11/2024 4:00 PM CDT Comprehensive Visit Department of Dermatology in [place], [place] [address] [place] [phone] Parul Martinez M.D. [address] [place] [phone] 10/12/2024 8:00 AM CDT [facility] in [place], [place] [address] [place] [phone] Ervin Mckeon D.O. [address] [place] [phone] 11/01/2024 2:15 PM CDT Appointment Division of Pulmonary Medicine in [place], [place] [address] [place] [phone] Edgar Montgomery M.B.B.S., M.S. [address] [place] [phone] documented as of this encounter Visit Diagnoses Diagnosis Rejection Graft Acute- Primary Abdominal Pain documented in this encounter Administered Medications Inactive Administered Medications - up to 3 most recent administrations Medication Order MAR Action Action Date Dose Rate Site methylPREDNISolone sod succinate (PF) 1,000 mg in NaCl 0.9% IVPB 1,000 mg (1 g), intravenous, at 116-232 mL/hr, Administer over 15-30 Minutes, Once, On 08/27/24 at 0815, For 1 doseIndications:Rejection Graft Acute New Bag 08/27/2024 8:48 AM CDT 1,000 mg 232 mL/hr Left Forearm NaCl 0.9% infusion 1-999 mL/hr, intravenous, As needed, Between Consecutive Piggyback Administrations, Starting on 08/27/24 at 0800, Infuse at the same rate as the piggyback medication until tubing clears or up to a volume of 20 mL. Select for IV medication administration when no maintenance IV available or when IV medications are not compatible with maintenance fluid.Indications:Abdomin al Pain New Bag 08/27/2024 9:04 AM CDT 232 mL/hr 232 mL/hr sodium chloride 0.9 % injection 3 mL 3 mL, intravenous, As needed, line care, Starting on 08/27/24 at 0800, Prior to and following infusion and between multiple consecutive infusions.Indications:Abd ominal Pain Given 08/27/2024 9:14 AM CDT 3 mL Given 08/27/2024 8:48 AM CDT 3 mL documented in this encounter Additional Health Concerns Infection Onset Date Last Indicated Resolved Time Protective Environment 10/10/2022 10/10/2022 Assessment Noted Time PHQ-9 Depression Total Score: 4 08/12/19 25 3:31 PM CDT documented as of this encounter Care Teams Menu Planner Relationship Specialty Start Date End Date Ana Red MPAS, P.A.-C. [address] [place] [phone] PCP - General Internal Medicine 12/01/21 [facility]- [place] lab 08/25/21 documented as of this encounter
--- OUTSIDE RECORDS SUMMARY | 2024-08-31 08:30 | XMS_ITS | Encounter Summary ---
Author Organization [facility] Address [address] [place] [phone] Care Team Providers Care Elevator Examiner And Adjuster Name Role Phone Ana Red P.A.-C. Primary Care Pro vider Reason for Visit * Transplant (Routine) - Closed Specialty Diagnoses / Procedures Referred By Meir lara Referred To Contact Transplant Diagnoses Transplant Liver (HCC) Medication Therapy Correction Not 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 Xu Joel Jr., M.D. [address] [place] [phone] Phone: tel: fax: [facility] Referral ID Status Reason Start Date Expiration Date Visits Re quested Visits Authorized [id number] Closed 08/25/2024 02/24/2026 1 1 Encounter Details Date Type Department Care Team (Latest Contact Info) Description 08/31/2024 8:30 AM CDT [facility] [place], [place] [address] [place] [phone] Xu Joel Jr., M.D. [address] [place] [address] [phone] Migue Escobar M.D. 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 [facility] Utilities Answer Date Recorded In the past 12 months has e [employer], oil, or water [employer] threatened to shut off services in your [...] How often do you attend chur or adventism services? Patient declined 02/10/2022 Do you belong to any clubs o r organizations such as christianity groups, unions, fraternal [...] Answer Date Recorded PHQ-2 Score 0 08/11/2024 [facility] - Occupational Stress Questionnaire Answer [...] your living situation today? I have a [facility] [place] place to live 08/22/2024 Education Answer Date Recorded What is the highest level of school you have completed or the highest degree you have received? Associate degree: occupational, technical, or vocational program 07/16/2021 Comments No Sex and Gender Information Value Date Recorded Sex Assigned at Female 04/12/2021 7:39 PM INTERNET MARKETING CONSULTANT Legal Sex Female 7:53 PM INTERNET MARKETING CONSULTANT Gender Identity Female 04/12/2021 7:39 PM INTERNET MARKETING CONSULTANT Sexual Orientation Straight 04/12/2021 7: 39 PM INTERNET MARKETING CONSULTANT documented as of this encounter Last Filed Vital Signs Vital Sign Reading Time Taken Comments Blood Pressure 122/82 08/31/2024 8:36 AM CDT Pulse 103 08/31/2024 8:36 AM CDT Temperature 37 C (98.6 F) 08/31/2024 8:36 AM CDT Respiratory Rate - - Oxygen Saturation - - Inhaled Oxygen Concentration - - Weight 55.1 kg (121 lb 7.6 oz) 08/31/2024 8:36 A M CDT Height 152.6 cm (5' 0.08) 08/31/2024 8:36 AM CD T Body Mass Index 23.66 08/31/2024 8:36 AM CDT documented in this encounter Progress Notes * Migue Escobar M.D. - 08/31/2024 8:30 AM CDT SUBJECTIVE CHIEF COMPLAINT/REASON FOR VISIT Post-hospital followup. HISTORY OF PRESENT ILLNESS Mrs. Brunson is a 34-year-old female, previously transplanted. 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 Course complicated by hepatic artery stenosis requiringstent placement December 2023. She has had several episodes of steroid responsive rejection. Was noted to have rejection during recent hospital stay this month [facility], treated with 3 doses of Solu-Medrol. She has not had followup liver enzymes yet. There is no plan for followupliver biopsy that has been pre-scheduled. Does have chronic pancreatitis, has been seen in the [facility] by Dr. Reyes. She has a chronic abdominal pain syndrome and has chronic intermittent nausea and vomiting. Today she complains of nausea and vomiting. She is vomiting about 4 times a day,nonbloody food-like content. She does have an emesis basin with her today and shows me the contentswhich appear mixed bilious and food-like. She states her weight has been stable. Of note, she was prescribed 2 mg of hydromorphone upon leaving the hospital to be used every 6 hours. She is asking if she could increase this. Apparently is able to keep this down, but is concerned that she is vomiting her sublingual tacrolimus. She states she is mixing it in liquid sometimes. Even putting it under her tongue apparently causes her to vomit. She was also given Zofran 4-mg tabletsevery 6 hours, states that this is not working. She is taking them as needed, but not prophylactically despite the fact that that has been recommended in the past. Does have diabetes. There were someadjustments made in the hospital because of her Solu-Medrol. She did labs this morning, but we do not have any of those back yet. Has been planned to go to Pain Rehab, but this has not been scheduled. I believe she had the intake visits. OBJECTIVE PHYSICAL EXAMINATION General: Appears her stated age. Eyes: Anicteric. Skin: No jaundice. Heart: Normal S1, S2. Lungs: Clear. Abdomen: Soft. Lower Extremities: No edema. 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 Brunson returns. We await her labs. Vitals are stable. Weight has been stable despite this vomiting. She is asking for an increased dose of her Dilaudid. I explained to her that our team believes that the Dilaudid is a significant culprit for her chronic nausea and vomiting. I have agreed to give her a prescription for 1 week of Dilaudid at the same dose she had been given leaving the hospital. We will try Compazine instead of Zofran. Compazine suppositories could be tried if a person cannot be held down. She really needs to get into the Pain Rehab program. I believe that is the main solution to these ongoing problems. She has had a number of imaging tests, procedures, a trigger pointinjection, and has been seen in the [facility]. I do not believe additional evaluation at thistime is necessary. Migue Escobar M.D. CT CT Job ID: [id number]/slm documented in this encounter Plan of Treatment Upcoming Encounters Date Type Department Care Team (Latest Contact Info) Description 10/05/2024 9:30 AM CDT Appointment Department of Radiology, [facility] in [address] [phone] Marisabel Carpenter APRN, C.N.P., D.N.P. [address] [place] [phone] 10/05/2024 12:00 PM CDT Appointment Division of Pulmonary Medicine in [address] [phone] Edgar Montgomery M.B.B.S., M.S. [address] [place] [phone] 10/05/2024 2:45 PM CDT Infusion Department of Infusion Therapy in [address] [phone] Noreen Ansari, P.A.-C., M.S. [address] [place] [phone] 10/10/2024 7:50 AM CDT Lab Department of Laboratory Medicine and Pathology, [facility] in [place], [place] [address] [place] [phone] Marisabel Carpenter APRN, C.N.P., D.N.P. [address] [place] [phone] 10/10/2024 8:00 AM CDT Lab Department of Laboratory Medicine and Pathology, [place], [place] [address] [place] [phone] Marisabel Carpenter APRN, C.N.P., D.N.P. [address] [place] [phone] 10/10/2024 8:30 AM CDT Nurse Only Ramirez Nguyen [facility] Transplantation and Clinical Regeneration in [place], [place] [address] [place] [phone] Marisabel Carpenter APRN, C.N.P., D.N.P. [address] [place] [phone] 10/10/2024 9:20 AM CDT [facility] [place] [place] [address] [place] [phone] Marisabel Carpenter APRN, C.N.P., D.N.P. [address] [place] [phone] 10/10/2024 9:45 AM CDT Appointment Department of Laboratory Medicine and Pathology, [place], [place] [address] [place] [phone] Marisabel Carpenter APRN, C.N.P., D.N.P. [address] [place] [phone] 10/10/2024 1:30 PM CDT Appointment Department of Radiology, [facility] in [place], [place] [address] [place] [phone] Marisabel Carpenter APRN, C.N.P., D.N.P. [address] [place] [phone] Discharge Disposition: Home or Self Care 10/10/2024 2:45 PM CDT Appointment Department of Radiology, [facility], in [place], [place] [address] [place] [phone] Marisabel Carpenter APRN, C.N.PSuma, D.N.P. [address] [place] [phone] 10/11/2024 8:00 AM CDT [facility] [place], [place] [address] [place] [phone] Marisabel Carpenter APRN, C.N.P., D.N.P. [address] [place] [phone] 10/11/2024 11:00 AM CDT Comprehensive Visit [facility] Transplantation and Clinical Regeneration in [place], [place] [address] [place] [phone] Sree Devlin M.D. [address] [place] [phone] 10/11/2024 1:00 PM CDT Comprehensive Visit Department of Otorhinolaryngology in [place], [place] [address] [place] [phone] Randal Urbano, P.A.-C., M.S. [address] [place] [phone] 10/11/2024 2:00 PM CDT Office Visit [facility] Transplantation and Clinical Regeneration in [place], [place] [address] [place] [phone] Hiro Murillo P.A.-C. [address] [place] [phone] 10/11/2024 4:00 PM CDT Comprehensive Visit Department of Dermatology in [place], [place] [address] [place] [phone] Parul Martinez M.D. [address] [place] [phone] 10/12/2024 8:00 AM CDT Telemedicine [facility] Clinical [facility] in [place], [place] [address] [place] [phone] Ervin Mckeon D.O. [address] [place] [phone] 11/01/2024 2:15 PM CDT Appointment Division of Pulmonary Medicine in [place], [place] [address] [place] [phone] Edgar Montgomery M.B.B.S., M.S. 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 [address] [place] [address] [place] [phone] PCP - General Internal Medicine 12/01/21 [facility] 08/25/21 documented as of this encounter
--- OUTSIDE RECORDS SUMMARY | 2024-09-05 11:33 | XMS_ITS | Encounter Summary ---
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 200 [place] [phone] Hiro Murlilo P.A.-C. 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 [facility] [employer] Answer Date Recorded In the past 12 months has [employer], oil, or water [employer] threatened to shut off services in your [...] week 02/10/2022 How often do you attend [facility] health system or mormonism services? Patient declined 02/10/2022 Do you belong to any clubs o r organizations such as mandaen groups, unions, fraternal [...] Answer Date Recorded PHQ-2 Score 0 08/11/2024 [facility] - Occupational Stress Questionnaire Answer Date [...] money to buy more. Never true 08/23/19 25 Within the past 12 months, t he [...] your living situation today? I have a [facility] place to live 08/22/2024 Education Answer Date Recorded What is the highest level of school you have completed or the highest degree you have received? Associate degree: occupational, technical, or vocational program 07/16/2021 Comments No Sex and Gender Information Value Date Recorded Sex Assigned at Female 04/12/2021 7:39 PM ACCOUNTING LECTURER Legal Sex Female 7:53 PM ACCOUNTING LECTURER Gender Identity Female 04/12/2021 7:39 PM ACCOUNTING LECTURER Sexual Orientation Straight 04/12/2021 7: 39 PM ACCOUNTING LECTURER documented as of this encounter Last Filed Vital Signs Vital Sign Reading Time Taken Comments Blood Pressure 108/82 09/05/2024 4:30 PM CDT Pulse 86 09/05/2024 4:30 PM CDT Temperature 36.7 C (98.1 F) 09/05/2024 3:40 PM CDT Respiratory Rate 15 09/05/2024 3:40 PM CDT Oxygen Saturation 96% 09/05/2024 4:30 PM CDT Inhaled Oxygen Concentration - - Weight 55.1 kg (121 lb 7.6 oz) 09/05/2024 1:06 P M CDT Height 152.6 cm (5' 0.08) 09/05/2024 1:06 PM CD T Body Mass Index 23.66 09/05/2024 1:06 PM CDT documented in this encounter Medications at [...] glucose testing. 1 each 05/15/2024 1:09 PM ACCOUNTING LECTURER 05/15/2024 blood sugar diagnostic strips Use to test blood sugar 2 time(s) per day. 100 test 1 07/04/2024 1:55 PM ACCOUNTING LECTURER 07/04/2024 07/05/19 blood-glucose meter misc Test as directed for diabetes control. 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 Change sensor every 15 days 6 each 3 09/09/2024 12:32 PM CDT 07/06/2024 cholecalciferol (Vitamin D3) 50 mcg (2,000 Unit) tablet Take 1 tablet (50 mcg total) by mouth daily. 90 tablet 3 04/20/2024 cholestyramine (Questran) 4 gram packet Take 60 mL (1 packet total) by mouth 2 (two) times a day as needed (itching). Take 3 hours away from other medications 30 packet 1 09/05/2024 diclofenac sodium (Voltaren) 1 % gel Apply 2 g topically 4 (four) times a day. Apply to abdomen or other areas of pain. 200 g 3 04/20/2024 lancets Use 2 (two) times a day. Use as directed for diabetes testing. 100 each 1 07/04/2024 1:55 PM ACCOUNTING LECTURER 07/04/2024 levonorgestreL (MIRENA) 21 mcg/24 hours (8 yrs) 52 mg IUD 1 Intra Uterine Device (1 each total) by intrauterine route continuously. Inserted 07/31/2022. 1 each 12/31/2022 lidocaine 4 % adhesive patch,medicated Place 1 patch on the skin daily. Apply to painful areas. 30 patch 1 04/20/2024 jlqket-eflpyldj-bw ylase (Creon) 12,000-38,000-60,[address] [...] minimal response. 2 each 04/25/2024 12:55 PM ACCOUNTING LECTURER 04/25/2024 pantoprazole (Protonix) 40 mg EC tabletIndications: [...] mouth daily. 90 tablet 06/27/2024 5:33 PM ACCOUNTING LECTURER 06/28/2024 prochlorperazine (Compazine) 10 mg tablet Take 1 tablet (10 mg total) by mouth every 6 (six) hours as needed for nausea or vomiting. 30 tablet 08/31/2024 9:26 AM CDT 08/31/2024 teriparatide (Forteo) 20 mcg/dose (600mcg/2.4mL) injection Inject [...] days Indication: Chronic Pain/Nonacute Pain. 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 28 tablet 08/25/2024 8:13 PM CDT 08/25/2024 09/09/19 25 polyethylene glycol (Miralax) 17 gram powder packet Take 1 packet (17 g total) by mouth daily. Dissolve each 17 g dose in 240 mLs (8 ounces) of beverage. 30 packet 06/28/2024 09/16/19 pregabalin (Lyrica) 100 mg capsule Take 1 capsule (100 mg total) by mouth 2 (two) times a day. 60 capsule 08/25/2024 09/07/19 pregabalin (Lyrica) 25 mg capsule Take 1 capsule (25 mg total) by mouth 2 (two) times a day. 60 capsule 08/25/2024 09/09/19 sennosides-docusat e sodium (Senokot-S) 8.6-50 mg per tablet Take 1 tablet by mouth 2 (two) times a day as needed for constipation. 100 tablet 06/27/2024 5:33 PM ACCOUNTING LECTURER 06/27/2024 09/16/19 tacrolimus (Prograf) 1 mg capsuleIndications :prevention of liver transplant rejection Place 2 capsules (2 mg total) under the tongue every morning AND 2 capsules (2 mg total) every evening. 360 capsule 3 06/27/2024 5:33 PM ACCOUNTING LECTURER 06/27/2024 09/09/19 documented as of this encounter Procedure Notes * Hiro Murillo P.A.-C. 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 Authorized by: Migue Escobar M.D. PROCEDURE DETAILS Patient position: ultrasound used for marking and supine Ultrasound image guidance used to localize target, identify at risk structures, and dynamically used to direct therapy to the target. Image(s) acquired and saved. Number of passes needle: 1 Specimen adequate?: yes Specimen sent to lab for the following: pathology CONSENT Consent obtained: verbal and written (Risks, benefits and alternatives were discussed and a writtenInformed Consent was obtained. Please see Informed Consent form for further details.) UNIVERSAL PROTOCOL All relevant documentation and testing were reviewed and available. All required blood products, implants, devices and or special equipment were made available as applicable. Pre-procedure verification was conducted and the correct site was marked if required. A fire risk and smoke assessment were done as applicable. The procedural time-out to verify correct patient, correct side/site, and procedure was conducted prior to performing the procedure and confirmed in a procedural pause. PRE-PROCEDURE DETAILS Procedure purpose: diagnostic Indications: abnormal liver test and follow up on rejection Appropriate hand hygiene, gown, cap, mask, protective eyewear, sterile gloves, skin preparation, sterile drape, and strict aseptic technique were utilized as applicable for the procedure.: Yes Skin preparation: chlorhexidine CBC, platelets, and protime are within normal parameters. Denies aspirin and nonsteroidal use in the last week: yes SEDATION / ANESTHESIA Anesthesia method: local infiltration Local infiltrate type: lidocaine POST-PROCEDURE DETAILS Procedure completed successfully: yes Complications: no apparent complications Comments I was contacted by the outpatient preprocedure nurse that the Patient forgot to take her Dilaudid this morning and was requesting Dilaudid 2 mg. An order was placed. Reviewed labs with Dr. Escobar and would like the pathology sent rapid process. I notified the hospitalist service who will receive the results tonight and contact the patient with further management. Patient is scheduled to follow up with Dr. Escobar in the outpatient clinic tomorrow. Patient will call with any questions or concerns. documented in this encounter Plan of Treatment Upcoming Encounters Date Type Department Care Team (Latest Contact Info) Description 10/05/2024 9:30 AM CDT Appointment Department of Radiology, [facility], in [place], [place] [address] [place] [phone] Marisabel Carpenter APRN, C.N.P., D.N.P. [address] [place] [phone] 10/05/2024 12:00 PM CDT Appointment Division of Pulmonary Medicine in [address] [phone] Edgar Montgomery M.B.BSumaS., M.S. [address] [place] [phone] 10/05/2024 2:45 PM CDT Infusion Department of Infusion Therapy in [place], [place] [address] [place] [phone] Noreen Ansari P.A.-C., M.S. [address] [place] [phone] 10/10/2024 7:50 AM CDT Lab Department of Laboratory Medicine and Pathology, [facility] in [place], [place] [address] [place] [address] Marisabel Carpenter APRN, C.N.P., D.N.P. [address] [place] [phone] 10/10/2024 8:00 AM CDT Lab Department of Laboratory Medicine and Pathology, [facility] in [place], [place] [address] [place] [address] Marisabel Carpenter APRN, C.N.P., D.N.P. [address] [place] [phone] 10/10/2024 8:30 AM CDT Nurse Only Ramirez Nguyen [facility] in [place], [place] [address] [place] [phone] Marisabel Carpenter APRN, C.N.P., D.N.P. [address] [place] [phone] 10/10/2024 9:20 AM CDT Appointment Department of Radiology, [facility] in [place], [place] [address] [place] [address] Marisabel Carpenter APRN, C.N.P., D.N.P. [address] [place] [phone] 10/10/2024 9:45 AM CDT Appointment Department of Laboratory Medicine and Pathology, [facility] in [place], [place] [address] [place] [address] Marisabel Carpenter APRN, C.N.PSuma, D.N.P. [address] [place] [phone] 10/10/2024 1:30 PM CDT Appointment Department of Radiology, [facility] in [place], [place] [address] [place] [phone] Marisabel Carpenter APRN, C.N.PSuma, D.N.P. [address] [place] [phone] Discharge Disposition: Home or Self Care 10/10/2024 2:45 PM CDT Appointment Department of Radiology, [facility] in [place], [place] [address] [place] [address] Marisabel Carpenter APRN, Katrin.N.PSuma, D.N.P. [address] [place] [phone] 10/11/2024 8:00 AM CDT [facility] [place], [place] [address] [place] [phone] Marisabel Carpenter APRN, C.N.P., D.N.P. [address] [place] [phone] 10/11/2024 11:00 AM CDT [facility] in [place], [place] [address] [place] [address] Sree Devlin M.D. [address] [place] [phone] 10/11/2024 1:00 PM CDT Comprehensive Visit Department of Otorhinolaryngology in [place], [place] [address] [place] [address] Randal Urbano P.A.-C., M.S. [address] [place] [phone] 10/11/2024 2:00 PM CDT Office Visit Ramirez Llanes [facility] in [place], [place] [address] [place] [address] Hiro Murillo P.A.-C. [address] [place] [phone] 10/11/2024 4:00 PM CDT Comprehensive Visit Department of Dermatology in [place], [place] [address] [place] [phone] Parul Martinez M.D. [address] [place] [phone] 10/12/2024 8:00 AM CDT [facility]medicine [facility] in [place], [place] [address] [place] [address] Ervin Mckeon D.O. [address] [place] [phone] 11/01/2024 2:15 PM CDT Appointment Division of Pulmonary Medicine in [place], [place] [address] [place] [address] Edgar Montgomery M.B.B.S., M.S. [address] [place] [phone] documented as of this encounter Procedures Procedure Name Priority Date/Time Associated Diagnosis Comments AK US GUIDE PLC NDL Routine 09/05/2024 4 :17 PM CDT Transplant Liver (HCC) Medication Therapy Mcfp Not 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 Elevated Liver Function Test AK BX NDL LIVER PERC Routine 09/05/2024 4:17 PM CDT Transplant Liver (HCC) Medication Therapy Mcfp Not 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 Elevated Liver Function Test SURGICAL PATHOLOGY Routine 09/05/2024 2: 31 PM CDT documented in this encounter Results * AK BX NDL LIVER PERC, AK US GUIDE PLC NDL (09/05/2024 4:17 PM CDT) Narrative MMODAL - 09/05/2024 4:17 PM CDT Hiro Murillo P.A.-C. 09/05/2024 4:20 PM TXP liver biopsy Performed by: Hiro Murillo P.A.-C. Authorized by: Migue Escobar M.D. PROCEDURE DETAILS Patient position: ultrasound used for marking and supine Ultrasound image guidance used to localize target, identify at risk structures, and dynamically used to direct therapy to the target. Image(s) acquired and saved. Number of passes needle: 1 Specimen adequate?: yes Specimen sent to lab for the following: pathology CONSENT Consent obtained: verbal and written (Risks, benefits and alternatives were discussed and a written Informed Consent was obtained. Please see Informed Consent form for further details.) UNIVERSAL PROTOCOL All relevant documentation and testing were reviewed and available. All required blood products, implants, devices and or special equipment were made available as applicable. Pre-procedure verification was conducted and the correct site was marked if required. A fire risk and smoke assessment were done as applicable. The procedural time-out to verify correct patient, correct side/site, and procedure was conducted prior to performing the procedure and confirmed in a procedural pause. PRE-PROCEDURE DETAILS Procedure purpose: diagnostic Indications: abnormal liver test and follow up on rejection Appropriate hand hygiene, gown, cap, mask, protective eyewear, sterile gloves, skin preparation, sterile drape, and strict aseptic technique were utilized as applicable for the procedure.: Yes Skin preparation: chlorhexidine CBC, platelets, and protime are within normal parameters. Denies aspirin and nonsteroidal use in the last week: yes SEDATION / ANESTHESIA Anesthesia method: local infiltration Local infiltrate type: lidocaine POST-PROCEDURE DETAILS Procedure completed successfully: yes Complications: no apparent complications Comments I was contacted by the outpatient preprocedure nurse that the Patient forgot to take her Dilaudid this morning and was requesting Dilaudid 2 mg. An order was placed. Reviewed labs with Dr. Escobar and would like the pathology sent rapid process. I notified the hospitalist service who will receive the results tonight and contact the patient with further management. Patient is scheduled to follow up with Dr. Escobar in the outpatient clinic tomorrow. Patient will call with any questions or concerns. us Migue Escobar M.D. PROCEDURE/MINOR SURGICAL OR DERABLES Final Result MMODAL NA * Surgical Pathology (09/05/2024 2:31 PM CDT) 09/06/2024 9:25 AM CDT DTL Participated in the Interpretation Randal Marroquin M.D.-Pathology Fellow 09/06/2024 9:25 AM CDT DTL Report electronically signed by Quintin Ferguson M.D. I verify that I have examined all relevant slides/materials for the specimen(s) and rendered or confirmed the diagnosis. 09/06/2024 9:25 AM CDT DTL Gross Description Received in formalin labeled with the patient's name, medical record number, and liver-OLT is a pale pacheco-brown soft tissue core, 0.1 cmin average diameter and 1.7 cm in length. The specimen is submitted en toto in cassette A1. Grossed by AJB. 09/06/2024 9:25 AM CDT DTL Addendum Trichrome stain (block A1) shows periportal, centrilobular, and pericellular fibrosis (stage 2 of 4). Signed by Quintin Ferguson M.D. 09/06/2024 2:00 PM 09/06/2024 2:00 PM CDT DTL Comment:REVISED RESULTS Interpretation FINAL DIAGNOSIS OLT 3632 (1 year 10 months 3+ weeks) Liver, allograft, needle biopsy: Moderate acute cellular rejection. Moderate steatosis. See comment. COMMENT This liver biopsy specimen is adequate for interpretation, with more than 10 portal tracts available for review. Most portal tracts show a lymphocyte-predo minant inflammatory infiltrate with occasional admixed eosinophils, histiocytes, and plasma cells and focal interface activity. Focal lymphocytic cholangitis, portal venous endotheliitis, and central venous endotheliitis with areas of central perivenulitis with hepatocyte dropout are also identified. Focal lobular inflammation is present throughout the lobule. These changes are consistent with acute cellular rejection. Trichrome stain (block A1) will be reported in an addendum. The patient's prior biopsy ([id number]) was reviewed, and this current study demonstrates slightly worsened findings, with interval development of centrilobular injury. Digital imaging was used in the diagnostic assessment of this case. 09/06/2024 2:00 PM CDT DTL Tissue 09/05/2024 2:31 PM CDT 09/05/2024 3:08 PM CDT Hiro Murillo P.A.-C. LAB SURG PATH ORDERABLES Edited Result - Final [facility] [address] [place] [address], [facility] DTL [address] [place] [address] documented in this encounter Visit Diagnoses Diagnosis Transplant Liver (HCC) Medication Therapy Mcfp Not 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 Elevated Liver Function Test Acute Abdomen documented in this encounter Administered Medications Inactive Administered Medications - up to 3 most recent administrations Medication Order MAR Action Action Date Dose Rate Site acetaminophen tablet 500 mg (TylenoL) 500 mg, oral, Every 6 hours PRN, mild pain or score 1-3 of 10, Starting on Wed09/05/24 at 1550 Given 09/05/2024 3:52 PM CDT 500 mg fentaNYL injection 50 mcg (Sublimaze) 50 mcg, intravenous, Every 1 hour PRN, severe pain or score 7-10 of 10, Starting on Wed09/05/24 at 1535Indications:Acute Abdomen haloperidol lactate injection 1 mg (HaldoL) 1 mg, intravenous, Every 6 hours PRN, nausea, vomiting, Starting on Wed09/05/24 at 1550, For 48 hours, Total of 3 doses in 24 hour period. RASS must be -2 or higher to administer. Reassess for nausea or vomiting after at least 10 minutes. If nausea or vomiting persists administer next ordered antiemetic medications (order for antiemetic medication administration ondansetron then haloperidol then prochlorperazine) HYDROmorphone tablet 2 mg (Dilaudid) 2 mg, oral, Every 4 hours PRN, severe pain or score 7-10 of 10, Starting on Wed09/05/24 at 1342, Does patient have renal impairment, frailty, or advanced age (avoid morphine) and unable to take oxycodone? No, Did the patient fail other oral opioids during hospitalization? No, Does the patient have documented allergies to oxycodone and/or morphine? No, Is the patient on hydromorphone chronically for pain? YesIndications:Acute Abdomen Given 09/05/2024 1:48 PM CDT 2 mg LORazepam tablet 1 mg (Ativan) 1 mg, oral, Once as needed, anxiety, pre-procedure anxiety, Starting on Wed09/05/24 at 1249, For 1 dose, Pre-Op naloxone injection 0.2 mg (Narcan) 0.2 mg, intravenous, As needed, respiratory depression, Starting on Wed09/05/24 at 1550, For RASS Score -4 or less, respiratory rate of less than 8 breaths/min. Notify provider/service and rapid response team (if available at institution). ondansetron (PF) injection 4 mg (Zofran) 4 mg, intravenous, Every 6 hours PRN, nausea, vomiting, Starting on Wed09/05/24 at 1550, For 48 hours, Reassess for nausea or vomiting after at least 10 minutes. If nausea or vomiting persists administer next ordered antiemetic medications (order for antiemetic medication administration ondansetron then haloperidol then prochlorperazine). prochlorperazine injection 5 mg (Compazine) 5 mg, intravenous, Every 6 hours PRN, nausea, vomiting, Starting on Wed09/05/24 at 1550, For 48 hours, RASS must be -2 or higher to administer. Reassess for nausea/vomiting after at least 10 minutes. If nausea or vomiting persists administer next ordered antiemetic medications (order for antiemetic medication administration ondansetron then haloperidol then prochlorperazine) sodium chloride 0.9 % injection 10 mL 10 mL, intravenous, As needed, line care, Starting on Wed09/05/24 at 1249, Pre-Op, Peripheral Intravenous Catheter and Rapid Infusion Catheter, prior to blood sampling, post blood transfusion or post blood sampling sodium chloride 0.9 % injection 3 mL 3 mL, intravenous, As needed, line care, Starting on Wed09/05/24 at 1249, Pre-Op, Prior to and following infusion and between multiple consecutive infusions: sodium chloride 0.9 % injection sodium chloride 0.9 % injection 3 mL 3 mL, intravenous, Every 12 hours scheduled, First dose on Wed09/05/24 at 2100, Pre-Op, Peripheral Intravenous Catheter and Rapid Infusion Catheter, when no infusion to maintain patency documented in this encounter Active and Recently Administered Medications Times are shown in CDT. Scheduled Medication Order 09/03/2024 09/04/2024 09/05/2024 lidocaine 10 mg/mL (1 %) injection 30 mL (Xylocaine) 30 mL, infiltration, Once, On Wed09/05/24 at 1430, For 1 dose, Pre-Op 1430 (Due) sodium chloride 0.9 % injection 3 mL 3 mL, intravenous, Every 12 hours scheduled, First dose on Wed09/05/24 at 2100, Pre-Op, Peripheral Intravenous Catheter and Rapid Infusion Catheter, when no infusion to maintain patency PRN Medication Order 09/03/2024 09/04/2024 09/05/2024 acetaminophen tablet 500 mg (TylenoL) 500 mg, oral, Every 6 hours PRN, mild pain or score 1-3 of 10, Starting on Wed09/05/24 at 1550 1552 (Given - Provid er: Nimisha Mitchell R.N.) fentaNYL injection 50 mcg (Sublimaze) 50 mcg, intravenous, Every 1 hour PRN, severe pain or score 7-10 of 10, Starting on Wed09/05/24 at 1535 haloperidol lactate injection 1 mg (HaldoL) 1 mg, intravenous, Every 6 hours PRN, nausea, vomiting, Starting on Wed09/05/24 at 1550, For 48 hours, Total of 3 doses in 24 hour period. RASS must be -2 or higher to administer. Reassess for nausea or vomiting after at least 10 minutes. If nausea or vomiting persists administer next ordered antiemetic medications (order for antiemetic medication administration ondansetron then haloperidol then prochlorperazine) HYDROmorphone tablet 2 mg (Dilaudid) 2 mg, oral, Every 4 hours PRN, severe pain or score 7-10 of 10, Starting on Wed09/05/24 at 1342, Does patient have renal impairment, frailty, or advanced age (avoid morphine) and unable to take oxycodone? No, Did the patient fail other oral opioids during hospitalization? No, Does the patient have documented allergies to oxycodone and/or morphine? No, Is the patient on hydromorphone chronically for pain? Yes 1348 (Given - Provid er: Catia Perez R.N.) LORazepam tablet 1 mg (Ativan) 1 mg, oral, Once as needed, anxiety, pre-procedure anxiety, Starting on Wed09/05/24 at 1249, For 1 dose, Pre-Op naloxone injection 0.2 mg (Narcan) 0.2 mg, intravenous, As needed, respiratory depression, Starting on Wed09/05/24 at 1550, For RASS Score -4 or less, respiratory rate of less than 8 breaths/min. Notify provider/service and rapid response team (if available at institution). ondansetron (PF) injection 4 mg (Zofran) 4 mg, intravenous, Every 6 hours PRN, nausea, vomiting, Starting on Wed09/05/24 at 1550, For 48 hours, Reassess for nausea or vomiting after at least 10 minutes. If nausea or vomiting persists administer next ordered antiemetic medications (order for antiemetic medication administration ondansetron then haloperidol then prochlorperazine). prochlorperazine injection 5 mg (Compazine) 5 mg, intravenous, Every 6 hours PRN, nausea, vomiting, Starting on Wed09/05/24 at 1550, For 48 hours, RASS must be -2 or higher to administer. Reassess for nausea/vomiting after at least 10 minutes. If nausea or vomiting persists administer next ordered antiemetic medications (order for antiemetic medication administration ondansetron then haloperidol then prochlorperazine) sodium chloride 0.9 % injection 10 mL 10 mL, intravenous, As needed, line care, Starting on Wed09/05/24 at 1249, Pre-Op, Peripheral Intravenous Catheter and Rapid Infusion Catheter, prior to blood sampling, post blood transfusion or post blood sampling sodium chloride 0.9 % injection 3 mL 3 mL, intravenous, As needed, line care, Starting on Wed09/05/24 at 1249, Pre-Op, Prior to and following infusion and between multiple consecutive infusions: sodium chloride 0.9 % injection documented in this encounter Additional Health Concerns Infection Onset Date Last Indicated Resolved Time Protective Environment 10/10/2022 10/10/2022 Assessment Noted Time PHQ-9 Depression Total Score: 4 08/12/19 25 3:31 PM CDT documented as of this encounter Care Teams Cooker Pie Filling Relationship Specialty Start Date End Date Ana Red MPAS, P.A.-C. [address] [place] [address] ADI PANIAGUA [phone] PCP - General Internal Medicine 12/01/21 [facility] 08/25/21 documented as of this encounter
--- OUTSIDE RECORDS SUMMARY | 2024-09-05 13:20 | XMS_ITS | Encounter Summary ---
Author Organization [facility] Address [address] [place] [address] Care Team Providers Care Train Controller Name Role Phone Ana Red P.A.-C. Primary Care Pro vider Encounter Details Date Type Department Care Team (Latest Contact Info) Description 09/05/2024 1:20 PM CDT Ancillary Procedure Department of Transplantation Surgery Social History Tobacco Use Types Packs/Day Years Used Date Smoking Tobacco: Former Cigarettes 1 - 10/12/2021 Passive Smoke Exposure: Never Smokeless Tobacco: Never Comments:Smoked cigarettes f rom age 18-30 about Alcohol Use Standard Drinks/Week Comments Never 0 (1 standard drink = 0.6 oz pure alcohol) Havent had any alcohol in about a year or so. [facility] Utilities Answer Date Recorded In the past 12 months has [employer] gas, oil, or water [employer] threatened to shut off services in your [...] How often do you attend chur or cheondoism services? Patient declined 02/10/2022 Do you belong to any clubs o r organizations such as hindu groups, unions, fraternal [...] Answer Date Recorded PHQ-2 Score 0 08/11/2024 [facility] - [...] the money to buy more. Never true 04/22/20 25 Within the past 12 months, t [...] living situation today? I have a [facility] place to live 08/22/2024 Education Answer Date Recorded What is the highest level of school you have completed or the highest degree you have received? Associate degree: occupational, technical, or vocational program 07/16/2021 Comments No Sex and Gender Information Value Date Recorded Sex Assigned at Female 04/12/2021 7:39 PM MATH INTERVENTIONIST Legal Sex Female 7:53 PM MATH INTERVENTIONIST Gender Identity Female 04/12/2021 7:39 PM MATH INTERVENTIONIST Sexual Orientation Straight 04/12/2021 7: 39 PM MATH INTERVENTIONIST documented as of this encounter Plan of Treatment Upcoming Encounters Date Type Department Care Team (Latest Contact Info) Description 10/05/2024 9:30 AM CDT Appointment Department of Radiology, [facility], in [place], [place] [address] [place] [address] Marisabel Carpenter APRN, C.N.P., D.N.P. [address] [place] [address] 10/05/2024 12:00 PM CDT Appointment Division of Pulmonary Medicine in [place], [place] [address] [place] [address] Edgar Montgomery M.B.B.S., M.S. [address] [place] [phone] 10/05/2024 2:45 PM CDT Infusion Department of Infusion Therapy in [place], [place] [address] [place] [address] Noreen Ansari P.A.-C., M.S. [address] [place] [phone] 10/10/2024 7:50 AM CDT Lab Department of Laboratory Medicine and Pathology, [place], [place] [address] [place] [address] Marisabel Carpenter APRN, C.N.P., D.N.P. [address] [place] [phone] 10/10/2024 8:00 AM CDT Lab Department of Laboratory Medicine and Pathology, [place], [place] [address] [place] [address] Marisabel Carpenter APRN, C.N.P., D.N.P. [address] [place] [phone] 10/10/2024 8:30 AM CDT Nurse Only [facility] [place], [place] [address] [place] [address] Marisabel Carpenter APRN, C.N.P., D.N.P. [address] [place] [phone] 10/10/2024 9:20 AM CDT Appointment Department of Radiology, [facility] in [place], [place] [address] [place] [address] Marisabel Carpenter APRN, C.N.PSuma, D.N.P. [address] [place] [phone] 10/10/2024 9:45 AM CDT Appointment Department of Laboratory Medicine and Pathology, [facility] in [place], [place] [address] [place] [address] Marisabel Carpenter APRN, C.N.PSuma, D.N.P. [address] [place] [phone] 10/10/2024 1:30 PM CDT Appointment Department of Radiology, [facility] in [place], [place] [address] [place] [address] Marisabel Carpenter APRN, Katrin.N.PSuma, D.N.P. [address] [place] [phone] Discharge Disposition: Home or Self Care 10/10/2024 2:45 PM CDT Appointment Department of Radiology, [facility] in [place], [place] [address] [place] [address] Marisabel Carpenter APRN, Katrin.N.PSuma, D.N.P. [address] [place] [phone] 10/11/2024 8:00 AM CDT Office Visit Ramirez [facility]ar[facility] in [place], [place] [address] [place] [phone] Marisabel Carpenter APRN, C.N.PSuma, D.N.P. [address] [place] [phone] 10/11/2024 11:00 AM CDT [facility] [place], [place] [address] [place] [address] Sree Devlin M.D. [address] [place] [phone] 10/11/2024 1:00 PM CDT Comprehensive Visit Department of Otorhinolaryngology in [place], [place] [address] [place] [address] Randal Urbano P.A.-C., M.S. [address] [place] [phone] 10/11/2024 2:00 PM CDT Office Visit [facility] [place] in [place], [place] [address] [place] [address] Hiro Murillo P.A.-C. [address] [place] [phone] 10/11/2024 4:00 PM CDT Comprehensive Visit Department of Dermatology in [place], [place] [address] [place] [address] Parul Martinez M.D. [address] [place] [phone] 10/12/2024 8:00 AM CDT Telemedicine [facility] [place] in [place], [place] [address] [place] [address] Ervin Mckeon D.O. [address] [place] [phone] 11/01/2024 2:15 PM CDT Appointment Division of Pulmonary Medicine in [place], [place] [address] [place] [address] Edgar Montgomery M.B.B.S., M.S. [address] [place] [address] documented as of this encounter Procedures Procedure Name Priority Date/Time Associated Diagnosis Comments TRANSPLANTATION SURG IMAGE EXAM Routine 09/05/2024 1:20 PM CDT documented in this encounter Results * Non-Radiology Image-Transplantation Surg Image Exam (09/05/2024 1:20 PM CDT) 09/05/2024 1:17 PM CDT Narrative [facility] - 09/05/2024 2:24 PM CDT This order has been created and auto-finalized to support the import of images acquired without order. The clinical documentation to support these images can be found on the encounter that produced images. us Provider Not In System IMG NON RAD IMAGING PROCE DURES Final Result [facility] NA documented in this encounter Visit Diagnoses Not on filedocumented in this encounter Additional Health Concerns Infection Onset Date Last Indicated Resolved Time Protective Environment 10/10/2022 10/10/2022 Assessment Noted Time PHQ-9 Depression Total Score: 4 08/12/19 25 3:31 PM CDT documented as of this encounter Care Teams Train Controller Relationship Specialty Start Date End Date Ana Red MPAS, P.A.-C. [address] [place] [phone] PCP - General Internal Medicine 12/01/21 [facility] [place] [facility] 08/25/21 documented as of this encounter
--- OUTSIDE RECORDS SUMMARY | 2024-09-05 14:15 | XMS_ITS | Encounter Summary ---
Author Organization [facility] Address [address] [place] [phone] Care Team Providers Care Diesel Scoop Operator Name Role Phone Ana Red P.A.-C. Primary Care Pro vider Reason for Visit * Auth/Cert (Routine) Specialty Diagnoses / Procedures Referred By Meir lara Referred To Contact Diagnoses Transplant Liver (HCC) Medication Therapy Retirement Not 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 Elevated Liver Function Test Procedures TXP LIVER BIOPSY Referral ID Status Reason Start Date Expiration Date Visits Re quested Visits Authorized [id number] 1 1 Encounter Details Date Type Department Care Team (Late st Contact Info) Description 09/05/2024 2:15 PM CDT Anesthesia Event [facility], [facility] [address] [place] [address] Mohsen Arias APRN, OLIVE PITTER [address] [place] [phone] Maria Alejandra Islas APRN, SHANNON, D.N.P. [address] [place] [phone] Anesthesia Record Procedure Summary Procedure Name Responsible Anesthesiologist Anesthesia Start Time Anesthesia Stop Time TXP LIVER BIOPSY Mohsen Arias A PRN, CRNA 09/05/24 1415 09/05/24 1451 Events Date Time Event Comment 09/05/2024 1415 An Start Machine/Equipme nt Checked Infection Precautions Followed Procedure/Site Verified NPO Status Verified Supine Standard ASA Monitors Applied 1422 Turnover to Proceduralist 1423 Anesthesia Time Out 1425 Proc Start 1430 Proc Fin 1431 Turnover to ANE Staff 1448 an stop data 1451 An End I completed my handoff to the receiving staff during which we 1. Identified the patient 2. Identified the responsible provider 3. Reviewed the pertinent medical history 4. Discussed the surgical course 5. Reviewed intra-op anesthesia management and issues during anesthesia 6. Set expectations for post-procedure period 7. Allowed opportunity for questions and acknowledgement of understanding. Meds Name Total fentaNYL 50 mcg/mL injection 100 mcg propofol 10 mg/mL injection 100 mg lidocaine (Xylocaine) injection 2% (mg) 100 mg * Agents No agents on file. * Blood No blood administrations on file. Lines, Drains, and Airways Type Details Placement Removal Peripheral IV Placement Date: 10/25; Placement Time: 1331; Catheter Size: 20 G; Orientation: Left, Posterior; Location: Hand; Site Prep: Chlorhexidine (Preferred); Technique: Anatomical landmarks; Inserted by: BL; Insertion Attempts: 1; Removal Date: 09/05/24; Removal Time: 1637; Removal Reason: Patient discharged 09/05/24 1331 by Heather Meza, R.N. 09/05/24 1637 by Nimisha Mitchell, R.N. Wound 09/05/24; 1431; N; 09/05/24; Puncture; Abdomen; Lateral, Right, Upper, Quadrant; Liver Bx; 09/21/24; 0900; old LDA 09/05/24 1431 by Effie Acosta, R.N. 09/21/24 0900 by Nico Hanson, R.N. documented in this encounter Social History Tobacco Use Types Packs/Day Years Used Date Smoking Tobacco: Former Cigarettes 1 - 10/12/2021 Passive Smoke Exposure: Never Smokeless Tobacco: Never Comments:Smoked cigarettes f rom age 18-30 about Alcohol Use Standard Drinks/Week Comments Never 0 (1 standard drink = 0.6 oz pure alcohol) Havent had any alcohol in about a year or so. [facility] Utilities Answer Date Recorded In the past 12 months has [employer], gas, oil, or water [employer] threatened to shut off services in your [...] do you attend [facility] or gnosticist services? Patient declined 02/10/2022 Do you belong to any clubs o r organizations such as roman catholic groups, unions, [...] Answer Date Recorded PHQ-2 Score 0 08/11/2024 [facility] Occupat ional Health - Occupational Stress [...] your living situation today? I have a [facility] place to live 08/22/2024 Education Answer Date Recorded What is the highest level of school you have completed or the highest degree you have received? Associate degree: occupational, technical, or vocational program 07/16/2021 Comments No Sex and Gender Information Value Date Recorded Sex Assigned at Female 04/12/2021 7:39 PM VIOLIN TUTOR Legal Sex Female 7:53 PM VIOLIN TUTOR Gender Identity Female 04/12/2021 7:39 PM VIOLIN TUTOR Sexual Orientation Straight 04/12/2021 7: 39 PM VIOLIN TUTOR documented as of this encounter OR Notes * Anesthesia Postprocedure Evaluation - CerroMohsen Sun, REHABILITATION ASSISTANT, OLIVE PITTER - 09/05/2024 2:53 PM CDT Patient: Catia Brunson Procedure Summary Date: 09/05/24 Room / Location: [facility] Anesthesia Start: 1415 Anesthesia Stop: 145 Procedure: TXP LIVER BIOPSY Diagnosis: Transplant Liver (HCC) Medication Therapy Retirement Not 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 Elevated Liver Function Test Transplant Liver (HCC) Medication Therapy Physical Scientist Not 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 Elevated Liver Function Test Scheduled Providers: Hiro Murillo P.A.-C. Responsible Provider: Mohsen Arias APRN, CRNA Anesthesia Type: MAC ASA Status: 3 Anesthesia Type: MAC Last vitals Vitals Value Taken Time BP 113/82 09/05/24 14:16 Temp 36.9 ??C 09/05/24 14:16 Pulse 94 09/05/24 14:16 Resp 18 09/05/24 14:16 SpO2 94 % 09/05/24 14:16 Please reference Vitals flowsheet for most recent vital signs. Anesthesia Post Evaluation Patient Disposition: general care unit Cardiovascular status: hemodynamics (HR & BP) acceptable Respiratory status: patent airway with spontaneous effort Temperature: normothermic Oxygen requirements: room air Level of consciousness: awake Pain score: pain requiring further management Post Op nausea/vomiting: none Hydration status: euvolemic Notable Events No notable events documented. * Anesthesia Preprocedure Evaluation - Mohsen Arias APRN, CRNA - 09/05/2024 2:14 PM CDT Preprocedure Anesthesia & H&P Assessment Procedure Summary Date/Time: 09/05/24 1230 Scheduled providers: Hiro Murillo P.A.-C. Procedure: TXP LIVER BIOPSY Diagnosis: Transplant Liver (HCC) [Z94.4] Medication Therapy Retirement Not 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 [Z79.899] Elevated Liver Function Test [R79.89] Transplant Liver (HCC) [Z94.4] Medication Therapy Retirement Not 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 [Z79.899] Elevated Liver Function Test [R79.89] Location: [facility] Pertinent components of the patient's history including current problem list, medical history, surgical history, family history, social history, medications and allergies were reviewed. Present illness and pre-op diagnosis were confirmed. The planned surgery / procedure was verified with the patient / legal guardian. The patient's general health condition remains unchanged RELEVANT COMORBID CONDITIONS CV (+) Patent Foramen Ovale (HCC) ENDO (+) Diabetes Mellitus Due To Underlying Condition With Ketoacidosis Without Coma (HCC) (+) Diabetes Mellitus Type 2 Without Complication (HCC) GI (+) End Stage Liver Disease (HCC) (+) Esophageal Varices Without Bleeding (HCC) (+) Gastroesophageal Reflux Disease Without Esophagitis (+) Hepatic Failure Unspecified Without Coma (HCC) (+) Hypertension Portal (HCC) HEME (+) Deficiency Coagulation Acquired (HCC) (+) Thrombocytopenia Other (+) Cannabis Moderate Or Severe Use Disorder (Dependence) Uncomplicated (HCC) (+) Moderate Or Severe Use Disorder (Dependence) Alcohol Remission (HCC) (+) Moderate Or Severe Use Disorder (Dependence) Drug Cannabis Remission (HCC) (+) Transplant Liver (HCC) OBJECTIVE PHYSICAL EXAMINATION Airway (HEENT) Mallampati: I TM Distance: >3 FB Neck ROM: Full Mouth Opening: >3 cm Upper Lip Bite Test Class: I Facies (pediatrics): normal Cardiovascular Rhythm: Regular Rate: Normal Cardiovascular Assessment: cardiovascular normal Pulmonary Pulmonary Assessment: Clear General / Constitutional Constitutional Assessment: Normal General State of Health:: healthy appearing Neurological Neurologic Assessment: alert and alert and oriented x 3 ASSESSMENT / PLAN ANESTHESIA PLAN ASA: 3 Anesthesia Plan: MAC Patient seen and allergies reviewed, anesthesia plan and risks discussed directly with patient /legal guardian or through an production grader. Risks/Benefits/Alternatives of Blood transfusion discussed with patient / legal guardian, includingan opportunity to ask questions and/or decline some or all transfusion therapies. The patient / legal guardian consented to the use of all blood products, as deemed medically necessary Approval to Proceed: approved for anesthesia documented in this encounter Plan of Treatment Upcoming Encounters Date Type Department Care Team (Latest Contact Info) Description 10/05/2024 9:30 AM CDT Appointment Department of Radiology, [facility], in [place], [place] [address] [place] [address] Marisabel Carpenter APRN, C.N.PSuma, D.N.P. [address] [place] [phone] 10/05/2024 12:00 PM CDT Appointment Division of Pulmonary Medicine in [place], [place] [address] [place] [phone] Edgar Montgomery M.B.B.S., M.S. [address] [place] [phone] 10/05/2024 2:45 PM CDT Infusion Department of Infusion Therapy in [place], [place] [address] [place] [phone] Noreen Ansari P.A.-C., M.S. [address] [place] [phone] 10/10/2024 7:50 AM CDT Lab Department of Laboratory Medicine and Pathology, [facility] in [place], [place] [address] [place] [phone] Marisabel Carpenter APRN, C.N.P., D.N.P. [address] [place] [phone] 10/10/2024 8:00 AM CDT Lab Department of Laboratory Medicine and Pathology, [facility] in [place], [place] [address] [place] [address] Marisabel Carpenter APRN, C.N.P., D.N.P. [address] [place] [phone] 10/10/2024 8:30 AM CDT Nurse Only [facility] [place], [place] [address] [place] [phone] Marisabel Carpenter APRN, C.N.P., D.N.P. [address] [place] [phone] 10/10/2024 9:20 AM CDT Appointment Department of Radiology, [facility] in [place], [place] [address] [place] [address] Marisabel Carpenter APRN, C.N.P., D.N.P. [address] [place] [phone] 10/10/2024 9:45 AM CDT Appointment Department [place] [address] [place] [phone] Marisabel Carpenter APRN, C.N.P., D.N.P. [address] [place] [phone] 10/10/2024 1:30 PM CDT Appointment Department of Radiology, [facility] in [place], [place] [address] [place] [phone] Marisabel Carpenter APRN, C.N.P., D.N.P. [address] [place] [phone] Discharge Disposition: Home or Self Care 10/10/2024 2:45 PM CDT Appointment Department of Radiology, [facility] in [place], [place] [address] [place] [address] Marisabel Carpenter APRN, C.N.P., D.N.P. [address] [place] [phone] 10/11/2024 8:00 AM CDT Office Visit [facility] in [place], [place] [address] [place] [phone] Marisbael Carpenter APRN, C.NSumaPSuma, D.N.P. [address] [place] [phone] 10/11/2024 11:00 AM CDT Comprehensive Visit [facility] in [place], [place] [address] [place] [phone] Sree Devlin M.D. [address] [place] [phone] 10/11/2024 1:00 PM CDT Comprehensive Visit Department of Otorhinolaryngology in [place], [place] [address] [place] [phone] Randal Urbano, Shanita.Silvano.-C., M.S. [address] [place] [phone] 10/11/2024 2:00 PM CDT Office Visit [facility] in [place], [place] [address] [place] [phone] Hiro Murillo P.A.-C. [address] [place] [phone] 10/11/2024 4:00 PM CDT Comprehensive Visit Department of Dermatology in [place], [place] [address] [place] [phone] Parul Martinez M.D. [address] [place] [phone] 10/12/2024 8:00 AM CDT Telemedicine [facility] in [place], [place] [address] [place] [phone] Ervin Mckeon D.O. [address] [place] [phone] 11/01/2024 2:15 PM CDT Appointment Division of Pulmonary Medicine in [place], [place] [address] [place] [phone] Edgar Montgomery M.B.B.S., M.S. [address] [place] [address] documented as of this encounter Visit Diagnoses Not on filedocumented in this encounter Administered Medications Inactive Administered Medications - up to 3 most recent administrations Medication Order MAR Action Action Date Dose Rate Site fentaNYL injection (Sublimaze) intravenous, As needed, Starting on Wed09/05/24 at 1424, Anesthesia Intra-op Given 09/05/2024 2:44 PM CDT 50 mcg Given 09/05/2024 2:24 PM CDT 50 mcg lidocaine (PF) (cardiac) injection intravenous, As needed, Starting on Wed09/05/24 at 1424, Anesthesia Intra-op Given 09/05/2024 2:27 PM CDT 40 mg Given 09/05/2024 2:24 PM CDT 60 mg propofoL injection (Diprivan) intravenous, As needed, Starting on Wed09/05/24 at 1424, Anesthesia Intra-op Given 09/05/2024 2:29 PM CDT 30 mg Given 09/05/2024 2:26 PM CDT 30 mg Given 09/05/2024 2:24 PM CDT 40 mg documented in this encounter Additional Health Concerns Infection Onset Date Last Indicated Resolved Time Protective Environment 10/10/2022 10/10/2022 Assessment Noted Time PHQ-9 Depression Total Score: 4 08/12/19 25 3:31 PM CDT documented as of this encounter Care Teams Diesel Scoop Operator Relationship Specialty Start Date End Date Ana Red MPAS, P.A.-C. [address] [place] [address] BAYADI WRIGHT [phone] PCP - General Internal Medicine 12/01/21 [facility] 08/25/21 documented as of this encounter
--- OUTSIDE RECORDS SUMMARY | 2024-09-06 15:00 | XMS_ITS | Encounter Summary ---
Author Organization [facility] Address [address] [place] [address] Care Team Providers Care Configuration Management Manager Name Role Phone Ana Red P.A.-C. Primary Care Pro vider Reason for Visit * Transplant (Routine) - Closed Specialty Diagnoses / Procedures Referred By Meir lara Referred To Contact Transplant Diagnoses Transplant Liver (HCC) Medication Therapy Prison Not 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 Elevated Liver Function Test Migue Escobar M.D. [address] [place] [phone] Phone: tel: fax: [facility] Referral ID Status Reason Start Date Expiration Date Visits Re quested Visits Authorized [id number] Closed 08/31/2024 03/02/2026 1 1 Encounter Details Date Type Department Care Team (Latest Contact Info) Description 09/06/2024 3:00 PM CDT Telemedicine Ramirez diaz [facility] in [place], [place] [address] [place] [phone] Migue Escobar M.D. 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 [facility] Utilities Answer Date Recorded In the past 12 months has th e [employer], gas, oil, or water [employer] threatened to shut off services in your [...] How often do you attend chur or buddhist services? Patient declined 02/10/2022 Do you belong [...] Answer Date Recorded PHQ-2 Score 0 08/11/2024 [facility] of Occupat ional Health - Occupational [...] your living situation today? I have a [facility] place to live 08/22/2024 Education Answer Date Recorded What is the highest level of school you have completed or the highest degree you have received? Associate degree: occupational, technical, or vocational program 07/16/2021 Comments No Sex and Gender Information Value Date Recorded Sex Assigned at Female 04/12/2021 7:39 PM SENIOR SALES DIRECTOR Legal Sex Female 7:53 PM SENIOR SALES DIRECTOR Gender Identity Female 04/12/2021 7:39 PM SENIOR SALES DIRECTOR Sexual Orientation Straight 04/12/2021 7: 39 PM SENIOR SALES DIRECTOR documented as of this encounter Progress Notes * Migue Escobar M.D. - 09/06/2024 3:00 PM CDT SUBJECTIVE CHIEF COMPLAINT/REASON FOR VISIT Return visit. This is a video visit. 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 Brunson returns. She had a repeat liver biopsy yesterday, now showing moderate rejection. Recall that she had been treated for mild rejection about 10 days ago. She states that she has not beenable to keep down her sublingual tacrolimus. In fact, her tacrolimus levels on the last 2 blood draws were less than 1. At this time, she will need Thymoglobulin. I contemplated having this administered in the Infusion Therapy Center. However, this would not address her issues, with not being able to keep down sublingual tacrolimus, which is somewhat confusing, given that it is not swallowed, butshould dwell in the mouth. 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 To that end, it would be best for her togo through the Pain Rehabilitation program here. Migue Escobar M.D. CT CT Job ID: [id number]/gld documented in this encounter Plan of Treatment Upcoming Encounters Date Type Department Care Team (Latest Contact Info) Description 10/05/2024 9:30 AM CDT Appointment Department of Radiology, [facility] in [place], [place] [address] [place] [phone] Marisabel Carpenter APRN, C.N.P., D.N.P. [address] [place] [phone] 10/05/2024 12:00 PM CDT Appointment Division of Pulmonary Medicine in [place], [place] [address] [place] [phone] Edgar Montgomery M.B.B.S., M.S. [address] [place] [phone] 10/05/2024 2:45 PM CDT Infusion Department of Infusion Therapy in [place], [place] [address] [place] [phone] Noreen Ansari P.A.-C., M.S. [address] [place] [phone] 10/10/2024 7:50 AM CDT Lab Department of Laboratory Medicine and Pathology, [facility] in [place], [place] [address] [place] [phone] Marisabel Carpenter APRN, C.N.P., D.N.P. [address] [place] [phone] 10/10/2024 8:00 AM CDT Lab Department of Laboratory Medicine and Pathology, [facility] in [place], [place] [address] [place] [phone] Marisabel Carpenter APRN, C.N.P., D.N.P. [address] [place] [phone] 10/10/2024 8:30 AM CDT Nurse Only Ramirez diaz [facility] in [place], [place] [address] [place] [address] Marisabel Carpenter APRN, C.N.P., D.N.P. [address] [place] [phone] 10/10/2024 9:20 AM CDT Appointment Department of Radiology, [place], [place] [address] [place] [address] Marisabel Carpenter APRN, C.N.P., D.N.P. [address] [place] [phone] 10/10/2024 9:45 AM CDT Appointment Department of Laboratory Medicine and Pathology, [place], [place] [address] [place] [phone] Marisabel Carpenter APRN, C.N.P., D.N.P. [address] [place] [phone] 10/10/2024 1:30 PM CDT Appointment Department of Radiology, [facility] in [place], [place] [address] [place] [address] Marisabel Carpenter APRN, C.N.P., D.N.P. [address] [place] [phone] Discharge Disposition: Home or Self Care 10/10/2024 2:45 PM CDT Appointment Department of Radiology, [facility] in [place], [place] [address] [place] [address] Marisabel Carpenter APRN, C.N.P., D.N.P. [address] [place] [phone] 10/11/2024 8:00 AM CDT Office Visit [facility] Transplantation and Clinical Regeneration in [place], [place] [address] [place] [phone] Marisabel Carpenter APRN, CSumaNSumaPSuma, D.N.P. [address] [place] [phone] 10/11/2024 11:00 AM CDT Comprehensive Visit [facility] in [place], [place] [address] [place] [phone] Sree Devlin M.D. [address] [place] [phone] 10/11/2024 1:00 PM CDT Comprehensive Visit Department of Otorhinolaryngology in [place], [place] [address] [place] [phone] Randal Urbano, P.A.-C., M.S. [address] [place] [phone] 10/11/2024 2:00 PM CDT Office Visit [facility] in [place], [place] [address] [place] [phone] Hiro Murillo P.A.-CSuma [address] [place] [phone] 10/11/2024 4:00 PM CDT Comprehensive Visit Department of Dermatology in [place], [place] [address] [place] [phone] Parul Martinez M.D. [address] [place] [phone] 10/12/2024 8:00 AM CDT Telemedicine Ramirez diaz [facility] in [place], [place] [address] [place] [phone] Ervin Mckeon D.O. [address] [place] [phone] 11/01/2024 2:15 PM CDT Appointment Division of Pulmonary Medicine in [place], [place] [address] [place] [phone] Edgar Montgomery M.B.B.S., M.S. [address] [place] [phone] documented as of this encounter Visit Diagnoses Diagnosis Transplant Liver (HCC) Medication Therapy Prison Not 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 Elevated Liver Function Test documented in this encounter Additional Health Concerns Infection Onset Date Last Indicated Resolved Time Protective Environment 10/10/2022 10/10/2022 Assessment Noted Time PHQ-9 Depression Total Score: 4 08/12/19 25 3:31 PM CDT documented as of this encounter Care Teams Configuration Management Manager Relationship Specialty Start Date End Date Ana Red MPAS, P.A.-C. [address] [place] [phone] PCP - General Internal Medicine 12/01/21 [facility] 08/25/21 documented as of this encounter
--- OUTSIDE RECORDS SUMMARY | 2024-09-06 18:25 | XMS_ITS | Encounter Summary ---
Author Organization [facility] Address [address] [place] [address] Care Team Providers Care Lollypop Machine Operator Name Role Phone Ana Red P.A.-C. Primary Care Pro vider Reason for Referral * Medication Prior Authorization - Denied Specialty Diagnoses / Procedures Referred By Meir lara Referred To Contact Noreen Ansari P.A.-C., M.S. [address] [place] [phone] Phone: tel: fax: Referral ID Status Reason Start Date Expiration Date Visits Re quested Visits Authorized [id number] Denied 1 1 Reason for Visit * Auth/Cert (Routine) Specialty Diagnoses / Procedures Referred By Meir lara Referred To Contact Diagnoses Nausea And Vomiting Abdominal Pain Rejection Liver Transplant (HCC) Procedures ip Referral ID Status Reason Start Date Expiration Date Visits Re quested Visits Authorized [id number] 1 1 Encounter Details Date Type Department Care Team (Latest Contact Info) Description 09/06/2024 6:25 PM CDT - 09/09/2024 5:52 PM CDT Hospital Encounter [facility], [facility], [facility], Tenth Floor [address] [place] [phone] Michelle Luz M.D., M.S. [address] [place] [phone] Ben Redmond APRN, C.N.P., D.N.P. [address] [place] [address] Rejection Graft Acute (Primary Dx); Transplant Liver (HCC); Nausea; Medication Therapy Fdc Not 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; Rejection Liver Transplant (HCC); Pain Abdominal Chronic Discharge Disposition: Home or Self Care Social History Tobacco Use Types Packs/Day Years Used Date Smoking Tobacco: Former Cigarettes 1 - 10/12/2021 Passive Smoke Exposure: Never Smokeless Tobacco: Never Comments:Smoked cigarettes f rom age 18-30 about Alcohol Use Standard Drinks/Week Comments Never 0 (1 standard drink = 0.6 oz pure alcohol) Havent had any alcohol in about a year or so. [facility] [employer] Answer Date Recorded In the past 12 months has devsisters, [employer] or water [employer] threatened to shut off services in your home? No 09/09/2024 Humiliation, Afraid, Rape, and Kick questionnair e Answer Date Recorded Within the last year, have y ou been afraid of your partner or ex-partner? No 09/09/2024 Within the last year, have y ou been humiliated or emotionally abused in other ways by your partner or ex-partner? No Within the last year, have y ou been kicked, hit, slapped, or otherwise physically hurt by your partner or ex-partner? No 09/09/2024 Within the last year, have y ou been raped or forced to have any kind of sexual activity by your partner or ex-partner? No 09/09/2024 Social Connection and Isolat ion Panel [NHANES] Answer Date Recorded In a typical week, how many times do you talk on the phone with family, friends, or neighbors? More than three times a week 02/10/2022 How often do you get togethe r with friends or relatives? Once a week 02/10/2022 How often do you attend chur ch or sabianism services? Patient declined 02/10/2022 Do you belong to any clubs o r organizations such as faith groups, unions, fraternal [...] Answer Date Recorded PHQ-2 Score 0 08/11/2024 [facility] - Occupational [...] the money to buy more. Never true 09/10/19 25 Within the past 12 months, t he food you bought just didn't last and you didn't have money to get more. Never true 09/09/2024 PRAPARE - Transportation Answer Date Re corded In the past 12 months, has l ack of transportation kept you from medical appointments or from getting medications? No 08/31 In the past 12 months, has l ack of transportation kept you from meetings, work, or from getting things needed for daily living? No 09/09/2024 Depression Answer Date Recor ded PHQ-9 Total [...] your living situation today? I have a [facility] place to live 09/09/2024 Education Answer Date Recorded What is the highest level of school you have completed or the highest degree you have received? Associate degree: occupational, technical, or vocational program 07/16/2021 Comments No Sex and Gender Information Value Date Recorded Sex Assigned at Female 04/12/2021 7:39 PM TACK PULLER MACHINE Legal Sex Female 7:53 PM TACK PULLER MACHINE Gender Identity Female 04/12/2021 7:39 PM TACK PULLER MACHINE Sexual Orientation Straight 04/12/2021 7: 39 PM TACK PULLER MACHINE documented as of this encounter Last Filed Vital Signs Vital Sign Reading Time Taken Comments Blood Pressure 142/101 09/09/2024 4:20 PM CDT Pulse 85 09/09/2024 4:20 PM CDT Temperature 36.9 C (98.4 F) 09/09/2024 4:20 PM CDT Respiratory Rate 16 09/09/2024 4:20 PM CDT Oxygen Saturation 98% 09/09/2024 4:20 PM CDT Inhaled Oxygen Concentration - - Weight 53.7 kg (118 lb 6.2 oz) 09/09/2024 2:31 A M CDT Height 152.6 cm (5' 0.08) 09/08/2024 12:12 PM C DT Body Mass Index 23.06 09/08/2024 12:12 PM CDT documented in this encounter Discharge Summaries * Juan Mueller M.D. - 09/09/2024 11:06 AM CDT DISCHARGE SUMMARY BRIEF OVERVIEW Hospital: [facility] Discharge Provider: Michelle Luz M.D. Primary Team: T Liver Transplant Primary Care Providers: Ana Red MPAS, P.A.-C. (General) [address] [facility] [phone] Primary Care Provider Primary Care Provider Other Providers: None Admission Date: 09/06/2024 Discharge Date: 09/09*25 PRINCIPAL DIAGNOSIS Rejection Liver Transplant (HCC) SECONDARY DIAGNOSES Principal Problem: Rejection Liver Transplant (HCC) Active Problems: Diabetes Mellitus Due To Underlying Condition With Ketoacidosis Without Coma (HCC) Diabetes Mellitus Type 2 Without Complication (HCC) Resolved Problems: * No resolved hospital problems. * DISCHARGE DISPOSITION Home or Self Care [1] ACTIVE ISSUES REQUIRING FOLLOW UP Follow up on outpatient tacrolimus levels and adjust as needed to maintain a trough of 5 to 8 OUTPATIENT FOLLOW UP Scheduled Appointments Next 10 Appointments 09/11/2024 2:15 PM INF CHAIR 05 [facility] Infusion Therapy 09/13/2024 1:00 PM Felicita Velazco M.SSumaN., R.N., [facility] Nutrition 09/13/2024 3:15 PM INF CHAIR 15 [facility] Infusion Therapy 09/14/2024 4:00 PM PUL PICS CLINIC 01 [facility] Pulmonary Medicine 09/15/2024 8:00 AM LAB BLOOD [facility] Laboratory Medicine 09/15/2024 10:00 AM TXP LIVER CLINIC 01 [facility] 10 Transplant 09/15/2024 11:00 AM PHR TXP PHARMACIST PHAR 01 [facility] Pharmacy 09/15/2024 1:45 PM US [facility] 02 RM 01 Radiology 10/03/2024 9:00 AM US JOSE LUISO 03 RM 14 Radiology 10/05/2024 12:00 PM RST RT 01 [facility] Pulmonary Medicine Displaying the next 10 appointments. This patient has additional appointments scheduled. For appointment details refer to your Patient Appointment Guide. TEST RESULTS PENDING AT DISCHARGE Pending Labs Order Current Status Tacrolimus, Trough In process DETAILS OF HOSPITAL STAY REASON FOR ADMISSION Nausea And Vomiting Abdominal Pain Rejection Liver Transplant (HCC) HOSPITAL COURSE Ms. 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 She is presenting this time from the clinic with moderate cellular rejection for thymo protocol. This is in the setting of not tolerating sublingual tacrolimus due to nausea and vomiting, in the setting of chronic abdominal pain. Transaminases were high with ALT >1000. Ultrasound liver transplant was largely unremarkable. The patient was switched to whole tacrolimus capsules 3 mg b.i.d. with Zofran 8 mg premedication 30minutes prior to the dose and this was tolerated well. Oral intake also improved. Started Thymoglobulin therapy and received 3 doses inpatient. Liver tests were improving at the time of discharge. Plan to continue to further Thymoglobulin doses 09/11 & 09/13. The patient will follow in the liver transplant Clinic 09/15 and planned for liver biopsy on the same day. We have recommended that she continue with oral tacrolimus capsules with a goal trough of 5 to 8. We discharged her with instructions to take 4 mg of oral tacrolimus BID. CONSULTS ORDERED DURING THIS ADMISSION IP CONSULT TO DIABETES IP CONSULT TO CAPACITY PLANNING ENGINEER IP CONSULT TO DIETITIAN CONDITION AT DISCHARGE stable Discharge instructions were provided to the patient and caregiver(s). Total time spent in discharge services today: 24 minutes. documented in this encounter Discharge Instructions * Discharge Instructions* Ines Atkins, YARITZA, C.N.P. - 09/07/2024 7:10 AM CDT You were discharged from the [facility] Liver Transplant Service. Please identify this service name if youcall with questions after hospitalization. BLOOD GLUCOSE MANAGEMENT: Monitor blood glucose four times daily before meals and at bedtime. Blood glucose goal is 100-140 mg/dL. Most recent A1c on record: Lab Results Component Value Date HGBA1C 7.5 (H) 05/12/2024 Follow-up with the outpatient provider who manages your diabetes within 7-10 days of discharge or earlier if blood glucose values are consistently out of goal range. As Diabetes and Nutritional Education is important to your diabetes management, yearly follow up with a local Body Technician/Painter and Dietitian is recommended. Please check with your insurance company as diabetes education visits are commonly covered. Your primary care provider can provide referrals for education. * Attachments The following attachments cannot be sent through Care Everywhere. * Pentamidine (By breathing) (Sami) * Valganciclovir (By mouth) (Sami) documented in this encounter Medications at Time [...] glucose testing. 1 each 05/15/2024 1:09 PM TACK PULLER MACHINE 05/15/2024 blood sugar diagnostic strips Use to test blood sugar 2 time(s) per day. 100 test 1 07/04/2024 1:55 PM TACK PULLER MACHINE 07/04/2024 07/05/19 26 blood-glucose meter misc Test as directed for diabetes control. 1 each 05/15/2024 1:09 PM TACK PULLER MACHINE 05/15/2024 blood-glucose sensor (FreeStyle Kristina 3 Plus [...] areas of pain. 200 g 3 04/20/2024 HYDROmorphone (Dilaudid) 2 mg tabletIndications: Acute Pain Take 1 tablet (2 mg total) by mouth every 6 (six) hours Indication: Acute Pain. 10 tablet 09/18/2024 12:40 PM CDT 09/08/2024 insulin glargine 100 unit/mL (3 mL) pen Inject 8 Units under the skin 2 (two) times a day. 15 mL 1 09/15/2024 7:42 PM CDT 09/08/2024 lancets Use 2 (two) times a day. Use as directed for diabetes testing. 100 each 1 07/04/2024 1:55 PM TACK PULLER MACHINE 07/04/2024 levonorgestreL (MIRENA) 21 mcg/24 hours (8 yrs) 52 mg IUD 1 Intra Uterine Device (1 each total) by intrauterine route continuously. Inserted 07/31/2022. 1 each 12/31/2022 lidocaine 4 % adhesive patch,medicated Place 1 patch on the skin daily. Apply to painful areas. 30 patch 1 04/20/2024 wodltf-updtthwl-za ylase (Creon) 12,000-38,000-60,[address] [...] minimal response. 2 each 04/25/2024 12:55 PM TACK PULLER MACHINE 04/25/2024 ondansetron (Zofran) 8 mg tabletIndications: Transplant Liver (HCC),Nausea,Medic ation Therapy Steaming Machine Operator Not 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 Take 1 tablet (8 mg total) by mouth every 8 (eight) hours as needed for nausea or vomiting. Take a tablet 30 minutes before tacrolimus dose. 90 tablet 09/09/2024 12:32 PM CDT 09/08/2024 pantoprazole (Protonix) 40 mg EC tabletIndications: Transplant [...] each 2 08/10/2024 4:35 PM CDT 07/04/2024 pentamidine (Nebupent) 50 mg/mL inhalation solution Inhale 6 mL (300 mg total) every 28 (twenty-eight) days. These are scheduled for 10/05/2024 & 11/01/2024. 10/05/2024 predniSONE (Deltasone) 5 mg tablet Take 1 tablet (5 mg total) by mouth daily. 90 tablet 06/27/2024 5:33 PM TACK PULLER MACHINE 06/28/2024 pregabalin (Lyrica) 75 mg capsule Take 1 capsule (75 mg total) by mouth 2 (two) times a day. 60 capsule 09/15/2024 7:42 PM CDT 09/08/2024 10/16/19 25 prochlorperazine (Compazine) 10 mg tablet Take 1 [...] mL 11 08/30/2023 valGANciclovir (Valcyte) 450 mg tabletIndications: Prophylaxis, medical Take 2 tablets (900 mg total) by mouth daily with morning meal Indications: Prophylaxis, medical. 176 tablet 09/09/2024 12:32 PM CDT 09/09/2024 12/07/19 25 insulin aspart U-100 (NovoLOG Flexpen U-100 [...] after visit with PCP Wednesday 15 mL 09/09/2024 12:32 PM CDT 09/08/2024 09/26/19 25 polyethylene glycol (Miralax) 17 gram powder packet Take 1 packet (17 g total) by mouth daily. Dissolve each 17 g dose in 240 mLs (8 ounces) of beverage. 30 packet 06/28/2024 09/16/19 25 sennosides-docusat e sodium (Senokot-S) 8.6-50 mg per tablet Take 1 tablet by mouth 2 (two) times a day as needed for constipation. 100 tablet 06/27/2024 5:33 PM TACK PULLER MACHINE 06/27/2024 09/16/19 25 tacrolimus (Prograf) 1 mg capsuleIndications :prevention of liver transplant rejection Take 4 capsules (4 mg total) by mouth 2 (two) times a day Indications: liver transplant rejection prevention. 720 capsule 3 09/09/2024 09/26/19 25 documented as of this encounter Progress Notes * Michelle Luz M.D., M.S. - 09/09/2024 10:40 AM CDT LIVER TRANSPLANT INPATIENT SERVICE - DISMISSAL DAY NOTE SUBJECTIVE: Patient seen on multidisciplinary transplant team rounds. Reviewed discharge planning, diagnoses, and medical management with the patient. 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 Quinones completed days 1-3 of Thymoglobulin protocol. She will complete days 5 and 7, along with post-treatment liver biopsy as outpatient. For prophylaxis post-rejection treatment, she is CMV D+/R- and will be discharged with oral valganciclovir for 12 weeks (end date 12/07/2024). She also received pentamidine during hospitalization on 09/07 and will complete pentamidine monthly for 12 weeks (end date 12/07/2024). For maintenance immunosuppression, we will continue oral tacrolimus 3 mg BID. Previously, she was on sublingual regimen with labile trough levels given chronic nausea/vomiting. She was able to tolerate oral tablets with scheduled antiemetic regimen during hospitalization and she expresses motivation to continue the oral regimen as recommended. We will keep her tacrolimus trough goal 5-8. She will have insulin recommendations provided by [facility]. She is planned for completing outpatient pain rehabilitation program, anticipated within the next month. We is planned for hospital dismissal today with outpatient follow-up next week. DISPOSITION: Patient to be discharged to home today. * Elis Santos APRN, C.N.P., D.N.P. - 09/09/2024 9:37 AM CDT SUBJECTIVE HISTORY OF PRESENT ILLNESS LOS: 3 days [facility] continues to follow this 34 y.o. female for blood glucose management admitted on 09/06/2024 for liver rejection. PREADMISSION DIABETES THERAPY: Lantus insulin 8 units bid NovoLog insulin 4 units tid plus a correction scale. Patient is in no acute distress. Resting in bed. Reviewed hospital insulin regimen. Reviewed dismissal plan. Patient denies any oral intake overnight. Nursing reports patient took a few hours to eat her evening meal and they had a difficult time covering carbohydrates. Nursing also reports she was not on a carb restriction and this was started yesterday evening with a 90 grams carb restriction (although low amounts of insulin to carbohydrate ratio have been given recently). Discussed with the patient hyperglycemia likely related to steroids. She received prednisone 30 mg yesterday evening andhydrocortisone 12.5 mg. This is not ordered for today. Blood Glucose Results in Last 24 Hours: Recent Labs 09/09/24 0634 09/09/24 0536 09/09/24 0152 09/08/24 2342 09/08/24 2007 09/08/24 1617 09/08/24 1213 GLUCOSEPOC 382 H -- 404 H 321 H 404 H 109 235 H GLUCOSE -- 442 Crit H -- -- -- -- -- Yesterday given Lantus 8 units twice daily, NovoLog 1 unit for every 6 grams of carbohydrates consumed with meals (5-4-5 units with respective meals), and NovoLog 29 units total for the correction ofhyperglycemia. STEROIDS: Prednisone 35 mg (5 mg in the AM and 30 mg in the afternoon- last day of afternoon dose) and Hydrocortisone 12.5 mg yesterday evening. Today, ordered to receive prednisone 5 mg daily in the morning (home dose) Current Diet Adult Diet Regular; 90 gm Carbs (per meal) starting at 09/08 2056 OBJECTIVE VITAL SIGNS Temperature: 36.8 ??C Resp Rate: 16 Blood Pressure: 135/85 BP Location: Right arm;Upper SpO2: 96 % Flow Rate (L/min): 0 L/min BMI (Calculated): 23.1 kg/m?? Height: 152.6 cm Weight: 53.7 kg Body mass index is 23.06 kg/m??. DIAGNOSTICS Lab Results Component Value Date CREATININE 0.71 09/09/2024 Estimated Creatinine Clearance: 94.6 mL/min (by C-G formula based on SCr of 0.71 mg/dL). ASSESSMENT / PLAN #1 Diabetes mellitus, type 2, preadmission hyperglycemia, A1c 7.5% #2 Hyperglycemia in the setting of steroids #3 Status post liver transplant on 10/10/22 Hyperglycemia likely related to steroid and not covering all carbohydrate intake (per nursing this has been difficult due to snacks and taking a prolonged time eating). Discussed attempting to eat food at mealtimes and ensure insulin coverage for all carbohydrate intake. Also ordered a PRN insulin to carbohydrate ratio to cover snacks. We will not make any changes today as she is not scheduled toreceive any more steroids today. If she does not dismiss, will adjust insulin doses tomorrow based off steroid plan. INPATIENT PLAN: - Blood Glucose Monitoring: four times daily before meals and bedtime plus 0200 - Glucose Goal: 140-180 mg/dL. - Basal: Lantus 8 units twice daily. - Mealtime: NovoLog 1 unit for every 6 grams of carbohydrates consumed with meals. Plus NovoLog 1 unit for every 8 grams of carbohydrates as needed consumed with snacks. - Correction Scale: NovoLog moderate correction scale three times a day, modified bedtime correction scale, and mild correction scale 0200 - DCS will evaluate and adjust insulin doses as indicated to achieve glycemic goal. ANTICIPATED DISMISSAL PLAN: Pre-admission therapy. No changes made to pre-admission regimen, doses last adjusted by outpatient provider on 08/31/24 with improved blood glucose control. She follows closely with outpatient transplant endocrinology and has an appointment on 10/11/2024. Blood Glucose Frequency: four times daily or via continuous glucose monitor (CGM) Goal: 100-140 mg/dL Final [facility] dismissal recommendations have been updated. No new prescriptions needed. Discussed above plan with the patient. Patient is alert and oriented and in agreement with the plan. [facility] pager [phone] will continue to follow. Call primary service for diabetes concerns between 6:30 p.m. and 6:30 a.m. Primary service to contact cotton dispatcher Endocrinology fellow via hospital nitrogen operator for questions. * Michelle Luz M.D., M.S. - 09/08/2024 12:57 PM CDT LIVER TRANSPLANT INPATIENT SERVICE - PROGRESS NOTE SUBJECTIVE: Patient seen on multidisciplinary transplant team rounds. I agree with the plan as outlined in the team notes. 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 Quinones will receive day 3 of thymoglobulin per protocol today. This will be timed later in the evening due to timing of administration yesterday. She has otherwise tolerated the first two doseswell and liver tests are improving. Ultrasound showed diffuse steatosis of the allograft, with patent vasculature. We anticipate completion of the remainder of protocol as outpatient with infusions arranged locally. Of note, she has been on valganciclovir while inpatient for PCP prophylaxis per thymoglobulin protocol. Due to concern for development of resistance if she is not able to keep down ortake the valganciclovir upon discharge, we will plan to stop this at time of dismissal with monitoring of CMV levels and treatment if indicated. Fortunately, she has been tolerating an oral diet, along with tacrolimus capsules and other oral tablets during admission. She does have scheduled Zofran ODT 8 mg BID that has helped with her chronic nausea. Therefore, we will plan to continue her on tacr olimus 3 mg PO tablets BID and her antiemetic regimen. Details per team's note dated today. We anticipate dismissal to home tomorrow. Non-severe (moderate) Malnutrition The patient meets the ASPEN Criteria of malnutrition based on: Energy Intake: Less than 75% of estimated energy requirement for greater than or equal to 7 days Interpretation of Weight Loss: No Change (up and down with fluid, overall stable) Body Fat: Mild Loss Muscle Mass: Moderate Loss This is in the context of Acute Illness or Injury (acute on chronic). Malnutrition Present Upon Admission: Yes Agree with Registered Dietitian's assessment and treatment plan: DISPOSITION: Patient requires ongoing hospital care at this time. * Katerine Garber, Pharm.D., R.Ph., [facility] - 09/08/2024 12:36 PM CDT Transplant Pharmacist Note Catia Quinones is a 34 y.o. status post liver transplant on 10/10/2022. Admitted on 09/06/2024 for moderate acute rejection management with thymoglobulin. Indication for transplant: alcohol related cirrhosis Post-transplant course notable for: ACR 04/29/24 s/p steroids, recurrence August 2024 s/p steroids; hepatic artery stenosis s/p stent , chronic pancreatitis, C diff, chronic pain and nausea PMH: chronic pancreatitis, GERD, chronic pain, thrombocytopenia (40-60s), anxiety OBJECTIVE Immunosuppression Lab Results Component Value Date TACROLIMUS 5.0 09/08/2024 Kidney function: Lab Results Component Value Date CREATININE 0.76 09/08/2024 EGFR >90 09/08/2024 CSTCECYSTATC 0.85 10/20/2023 EGFRCYSTATNC 100 10/20/2023 Liver Function: Lab Results Component Value Date ALT 701 (H) 09/08/2024 AST 326 (H) 09/08/2024 GGT 114 (H) 03/16/2024 ALKPHOS 354 (H) 09/08/2024 BILITOT 1.5 (H) 09/08/2024 ASSESSMENT / PLAN Recommendations & Follow Up Continue rejection treatment with thymoglobulin, days 1-3 inpatient with days 5 and 7 outpatient [facility] ([facility]) - these have been scheduled. Initiate valganciclovir x4 weeks for CMV prophylaxis. We discussed today the importance of taking consistently with patient and the preference for monitoring over intermittently taking due to resistance development risk. Patient stated she feels she can take this consistently with her nausea, thus we will continue. Initiate PJP prophylaxis x 12 weeks, will utilize pentamidine given anticipate inability to tolerate bactrim with baseline GI distress Add aspirin back to medication list on dismissal, resume taking when able to tolerate Appreciate DCS management of hyperglycemia Patient expressed desire to trial capsules over sublingual on 58 AM rounds. Tolerated this with 8 mg ODT Zofran premedication 20-30 minutes before for both 5/8 PM and 5/9 AM doses. Patient in agreement to continue this method. Of note, patient had been intermittently opening capsules and mixing with water. We discussed the importance of a consistent approach, particularly with the lack of dose equivalence between sublingual and oral tacrolimus. Continue to monitor tacrolimus troughs now that we are consistently taking, may require a dose reduction Alternatives to tacrolimus oral capsules were considered, see 09/07 pharmacist note for details. Ultimately given that patient has tolerated multiple oral tacrolimus capsule dose, we will proceed with this as it is the best option if it can be tolerated and its tolerance should be prioritized with interventions. Summary of Pharmacotherapy Plan Immunosuppression: Rejection: Thymoglobulin 1.5 mg/kg x 5 doses on days 1, 2, 3, 5, and 7 (day 1 = 09/06 at 2330, completed 09/07 ~ 0400) Maintenance: Prednisone 5 mg daily Tacrolimus adjusted to goal (below) Infectious Disease: Prophylaxis: CMV D+/R- *MISMATCH; EBV D+/R+ HSV/CMV: (Nel)ganciclovir x 12 weeks [end 12/07/24] PCP: Pentamidine 300 mg neb monthly x 12 weeks [end 12/07/24] Renal: sCr at apparent baseline of ~0.4-0.6. Endo: acute hyperglycemia with steroids, DCS managing Neuro: continue home regimen GI/: LFT elevated with rejection, downtrending Prophylaxis: VTE: No pharmacologic VTE prophylaxis at this time GI: Proton pump inhibitor HAT: Aspirin 81 mg daily - was removed 08/25 dismissal from [facility], will add back to medication list with goal to resume but not starting now given tolerance issues with oral medications as it is Drug Interactions: None clinically significant Home Medications: Held: questran, teriparatide Changed: tacrolimus Patient own medications: none Dismissal Planning No pharmacologic barriers to dismissal are identified at this time. Changes to medications anticipated at dismissal: Immunosuppression formulation change TBD pending course Pentamidine x12 weeks Possible valganciclovir x 4 weeks Resume aspirin on list, but will not prioritize patient taking until able to tolerate tacrolimus Transition tacrolimus from sublingual to oral, dose adjust to achieve goal Transplant Info & Therapeutic Drug Monitoring Goals Transplant Summary Liver Transplant - 10/10/2022 (#1) - [facility] POD: 1 year 10 months Protocols All Organs - Lab Interval Every 2 Weeks Liver Primary [place] Diagnosis Alcoholic Cirrhosis Liver Secondary [place] Diagnosis -- Donor Serologies Recipient Liver Donor (Pre-donation Results) Anti-CMV CMV IgG: Negative Positive CMV IgM: Negative -- CMV Nucleic Acid: Undetected -- EBV IgG EBV VCA IgG: Positive Positive EBV IgM EBV VCA IgM: Negative Not Done Toxoplasma Toxoplasma IgG: Negative Negative Toxoplasma IgG Value: <3 -- Active Patient Thresholds Lab Low High Effective Since Comment Tacrolimus Level 5 8 05/12/2024 Katerine Garber, Pharm.D., R.Ph., BCPS [phone] * Ines Atkins, YARITZA, C.N.P. - 09/08/2024 11:34 AM CDT SUBJECTIVE HISTORY OF PRESENT ILLNESS LOS: 2 days DCS continues to follow this 34 y.o. female for blood glucose management admitted on 09/06/2024 for liver rejection. PREADMISSION DIABETES THERAPY: Lantus insulin 8 units bid NovoLog insulin 4 units tid plus a correction scale. Patient is in no acute distress. Resting in bed. Reviewed hospital insulin regimen. Reviewed dismissal plan. Blood Glucose Results in Last 24 Hours: Recent Labs 09/08/24 0830 09/08/24 0504 09/08/24 0306 09/07/24 2324 09/07/24 1740 09/07/24 1326 GLUCOSEPOC 333 H -- 350 H 215 H 117 280 H GLUCOSE -- 349 H -- -- -- -- Yesterday given Lantus 8 units twice daily, NovoLog 1 unit for every 8 grams of carbohydrates consumed with meals (10-10-0 units with respective meals), and NovoLog 24 units total for the correction of hyperglycemia. STEROIDS: Prednisone 35 mg and Hydrocortisone 12.5 mg yesterday Current Diet Adult Diet Regular starting at 09/06 1845 OBJECTIVE VITAL SIGNS Temperature: 36.7 ??C Resp Rate: 15 Blood Pressure: 127/82 BP Location: Right arm;Upper SpO2: 99 % Height: 152.6 cm Weight: 50 kg Body mass index is 21.47 kg/m??. DIAGNOSTICS Lab Results Component Value Date CREATININE 0.76 09/08/2024 Estimated Creatinine Clearance: 82.3 mL/min (by C-G formula based on SCr of 0.76 mg/dL). ASSESSMENT / PLAN #1 Diabetes mellitus, type 2, preadmission hyperglycemia, A1c 7.5% #2 Hyperglycemia in the setting of steroids #3 Status post liver transplant on 10/10/22 INPATIENT PLAN: - Blood Glucose Monitoring: four times daily before meals and bedtime plus 0200 - Glucose Goal: 140-180 mg/dL. - Basal: Lantus 8 units twice daily. - Mealtime: NovoLog 1 unit for every 6 grams of carbohydrates consumed with meals. - Correction Scale: NovoLog moderate correction scale three times a day, modified bedtime correction scale, and mild correction scale 0200 - DCS will evaluate and adjust insulin doses as indicated to achieve glycemic goal. ANTICIPATED DISMISSAL PLAN: Preadmission therapy pending any contraindications. Blood Glucose Frequency: four times daily or via continuous glucose monitor (CGM) Goal: 100-140 mg/dL Please page DCS within 24 hours prior to hospital dismissal for final dismissal recommendations. Discussed above plan with the patient. Patient is alert and oriented and in agreement with the plan. DCS pager [phone] will continue to follow. Call primary service for diabetes concerns between 6:30 p.m. and 6:30 a.m. Primary service to contact cotton dispatcher Endocrinology fellow via hospital nitrogen operator for questions. * Edgar Montgomery M.B.B.S., M.S. - 09/08/2024 8:29 AM CDT LIVER TRANSPLANT INPATIENT PROGRESS NOTE SUBJECTIVE INTERVAL HISTORY -- Switch to tacrolimus capsule times with Zofran and this was tolerated well. -- Was able to eat well. -- Had some itching after the second dose of thymo received Atarax and OBJECTIVE VITAL SIGNS: Temperature: [36.8 ??C-37.1 ??C] 37.1 ??C Resp Rate: [16-18] 16 Blood Pressure: (123-146)/(81-111) 126/89 SpO2: [90 %-100 %] 95 % Pulse Rate: [67-99] 84 Intake/Output Summary (Last 24 hours) at 09/08/2024 0829 Last data filed at 09/07/2024 2220 Gross per 24 hour Intake 2415.75 ml Output 800 ml Net 1615.75 ml PHYSICAL EXAMINATION General: chronically ill-appearing. Not in acute distress. Neuro: alert and oriented Heart: Normal pulse. No edema. Lungs: Normal breathing efforts. Abdomen: Soft. Mild tenderness to palpation in the left abdomen. No guarding or rigidity. DIAGNOSTICS Results from last 7 days Lab Units 09/08/24 0504 09/07/24 0732 09/06/24202909/05/24 1127 WBC x10(9)/L 5.2 8.7 6.4 4.5 HEMOGLOBIN g/dL 13.0 15.0 15.2* 15.9* HEMATOCRIT % 37.9 45.3* 43.6 46.1* PLATELETS AUTO x10(9)/L 120* 109* 195 226 Results from last 7 days Lab Units 09/08/24 0504 09/07/24 0732 09/06/24202909/05/24 1127 SODIUM mmol/L 135 133* 132* 133* CREATININE mg/dL 0.76 0.62 0.62 0.56* ESTIMATED GFR EGFR mL/min/BSA >90 >90 >90 >90 BUN mg/dL 14 12 12 6 CHLORIDE mmol/L 102 95* 91* 94* Results from last 7 days Lab Units 09/06/24202909/05/24 1127 INR 1.0 0.9 Results from last 7 days Lab Units 09/08/24 05009/07/24 0732 ALBUMIN g/dL 3.9 4.5 AST U/L 326* 612* ALT U/L 701* 1028* ALK PHOS U/L 354* 432* BILIRUBIN DIRECT mg/dL 1.1* 2.9* BILIRUBIN TOTAL mg/dL 1.5* 3.7* ASSESSMENT / PLAN #Status post liver transplantation for autoimmune hepatitis October 2022 # Hepatic artery stenosis, status post stenting December 2023 # Immunosuppression # 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 Admitted with acute cellular rejection in the setting of non adherence to tacrolimus due to nausea and vomiting. Transaminase extremely elevated. Started thymo protocol. Switching from sublingual tacrolimus 2 mg BID to 3 mg of tacrolimus capsule timed with Zofran 8 mg as a premedication. This was tolerated better. Ultrasound transplant liver completed 09/07/2024 and this shows steatosis of the hepatic allograft but patent vasculature with continue to improved resistive indices. - Continue tacrolimus capsule 3 mg b.i.d.. - Zofran standing 8 mg b.i.d. before tacrolimus dosing. Compazine p.r.n. - Continue Thymoglobulin protocol for ACR. Plan discharge for tomorrow. 09/11 and 09/13 as outpatient. - Trend liver tests. Plan for biopsy after completing the thymo. #Chronic pancreatitis #Chronic abdominal pain syndrome #Intermittent nausea and vomiting - EGD 04/2024 normal including biopsies. Suspect a component of visceral hypersensitivity related pain and opioid hyperalgesia. Talked about the importance of avoiding opioids. Also the importance ofcontrolling diabetes. Updated nausea regimen. - utilize anti-nausea meds - Dietitian review and calorie counting. #Type 3 c diabetes - DCS consult - Important to control hyperglycemia. #Severe opioid use disorder - As above. Trying to avoid opioids for concern of worsening gastric emptying and background of visceral hypersensitivity unlikely opioid hyperalgesia. # Prophylaxis Pentamidine started given on thymo. Tacrolimus 3 mg b.i.d. Continue Valcyte. Discussed the importance of adhering to it given the risk of resistance with missed doses. We will also provided option of monitoring with labs and the patient preferred to continuethe Valcyte. VTE Prophylaxis: SCDs GI Prophylaxis: Pantoprazole Anticipated Disposition: Home with family in the next 24-48 hrs Max Esposito., M.S. * Katerine Garber, Pharm.D., R.Ph., BCPS - 09/07/2024 1:10 PM CDT Transplant Pharmacist Note Catia Quinones is a 34 y.o. status post liver transplant on 10/10/2022. Admitted on 09/06/2024 for moderate acute rejection management with thymoglobulin. Indication for transplant: alcohol related cirrhosis Post-transplant course notable for: ACR 04/29/24 s/p steroids, recurrence August 2024 s/p steroids; hepatic artery stenosis s/p stent , chronic pancreatitis, C diff, chronic pain and nausea PMH: chronic pancreatitis, GERD, chronic pain, thrombocytopenia (40-60s), anxiety OBJECTIVE Immunosuppression Lab Results Component Value Date TACROLIMUS 3.9 (L) 09/07/2024 Kidney function: Lab Results Component Value Date CREATININE 0.62 09/07/2024 EGFR >90 09/07/2024 CSTCECYSTATC 0.85 10/20/2023 EGFRCYSTATNC 100 10/20/2023 Liver Function: Lab Results Component Value Date ALT 1028 (H) 09/07/2024 AST 612 (H) 09/07/2024 GGT 114 (H) 03/16/2024 ALKPHOS 432 (H) 09/07/2024 BILITOT 3.7 (H) 09/07/2024 ASSESSMENT / PLAN Recommendations & Follow Up Continue rejection treatment with thymoglobulin, anticipate days 1-3 inpatient with days 5 and 7 outpatient in [facility] ([facility]) Initiate valganciclovir x4 weeks for CMV prophylaxis. Of note, if patient is not able to routinely tolerate, I would advocate for monitor in place of only intermittently dosing as this increases riskof CMV resistance development Initiate PJP prophylaxis x 12 weeks, will utilize pentamidine given anticipate inability to tolerate bactrim with baseline GI distress Add aspirin back to medication list on dismissal, resume taking when able to tolerate Appreciate DCS management of hyperglycemia Tacrolimus trough has been well below goal since at least June 2024 due to inability to tolerate PO medications with nausea. During that time, primary plan has been sublingual tacrolimus. Discussed with patient today she is only intermittently able to take this due to taste and texture causing nausea. She shared she has been sometimes opening the capsules and mixing with water and then swallowing as this was done during admission with Internal Medicine team. I shared the concern about this contributing to low tacrolimus levels if the intended sublingual dose is taken this way. Patient expressed a desire to retrial capsules over the sublingual. Of note, she took her 5/8 AM tacrolimus dose as capsules opened in water. Previously, compazine was working well for nausea, now ondansetron works better but IV is significantly better than oral per patient Plan for tacrolimus: patient interested in trying capsules. We will do the followin mg of orally disintegrating ondansetron 20-30 minutes before tacrolimus 3 mg of oral tacrolimus (not sure if 2 mg SL was the right dose due to inconsistent use) IF patient is unable to swallow, we will resort to allowing patient to open capsules and dissolve in water. This must be done by the patient and not nursing staff. This is an absolute last resort, all efforts should be made for patient to swallow capsules. Pending tacrolimus oral tolerance, we will consider alternative options which may include: Cost investigation of Envarsus (reduced pill burden, only needing to swallow pills once instead of twice daily) Investigation of belatacept in place of tacrolimus. Note this is a weeks to months long process. A therapy plan would need to be sent to the [facility] that will administer it, then that center's infusion therapy centers literacy specialist should review and investigate insurance coverage and if pre-authorization is available. This often takes weeks to months. Summary of Pharmacotherapy Plan Immunosuppression: Rejection: Thymoglobulin 1.5 mg/kg x 5 doses on days 1, 2, 3, 5, and 7 (day 1 = 09/06 at 2330, completed 09/07 ~ 0400) Maintenance: Prednisone 5 mg daily Tacrolimus adjusted to goal (below) Infectious Disease: Prophylaxis: CMV D+/R- *MISMATCH; EBV D+/R+ HSV/CMV: (Nel)ganciclovir x 1 months [end 10/07/24] PCP: Pentamidine 300 mg neb monthly x 12 weeks [end 12/07/24] Renal: sCr at apparent baseline of ~0.4-0.6. Endo: acute hyperglycemia with steroids, DCS managing Neuro: continue home regimen GI/: LFT elevated with rejection Prophylaxis: VTE: No pharmacologic VTE prophylaxis at this time GI: Proton pump inhibitor HAT: Aspirin 81 mg daily - was removed 08/25 dismissal from [facility], will add back to medication list with goal to resume but not starting now given tolerance issues with oral medications as it is Drug Interactions: None clinically significant Home Medications: Held: questran, teriparatide Changed: tacrolimus Patient own medications: none Dismissal Planning No pharmacologic barriers to dismissal are identified at this time. Changes to medications anticipated at dismissal: Immunosuppression formulation change TBD pending course Pentamidine x12 weeks Possible valganciclovir x 4 weeks Resume aspirin on list, but will not prioritize patient taking until able to tolerate tacrolimus Transplant Info & Therapeutic Drug Monitoring Goals Transplant Summary Liver Transplant - 10/10/2022 (#1) - [facility] POD: 1 year 10 months Protocols All Organs - Lab Interval Every 2 Weeks Liver Primary [place] Diagnosis Alcoholic Cirrhosis Liver Secondary [place] Diagnosis -- Donor Serologies Recipient Liver Donor (Pre-donation Results) Anti-CMV CMV IgG: Negative Positive CMV IgM: Negative -- CMV Nucleic Acid: Undetected -- EBV IgG EBV VCA IgG: Positive Positive EBV IgM EBV VCA IgM: Negative Not Done Toxoplasma Toxoplasma IgG: Negative Negative Toxoplasma IgG Value: <3 -- Active Patient Thresholds Lab Low High Effective Since Comment Tacrolimus Level 5 8 05/12/2024 Katerine Garber Pharm.D., R.Ph., BCPS [phone] * Loc العراقي, R.R.T., C.R.T., L.R.T. - 09/07/2024 12:49 PM CDT Patient seen by RT for Pentamidine treatment. Pentamidine pretreated with albuterol given by nursing. Patient tolerated the treatment well. Contact RT with any questions or concerns. Electronically signed by: Loc العراقي R.R.T., CSumaR.T., L.R.T. 09/07/24 12:50 PM CDT * Andreas Matthews R.N. - 09/07/2024 12:34 PM CDT Patient's diabetes technology(BeInSyncyle Kristina 3) downloaded. Report has been uploaded to patient's chart for our DCS providers to review. Reviewed pt's low alarm which was set to 70. Suggested she increase this to 80 which she did during our visit. Reviewed Hypoglycemia. * Edgar Montgomery M.B.B.S., M.S. - 09/07/2024 11:37 AM CDT LIVER TRANSPLANT INPATIENT PROGRESS NOTE SUBJECTIVE INTERVAL HISTORY -- Was able to tolerate the tacrolimus this morning. She preferred switching to capsule and were doing the starting the evening dose. -- No much nausea or vomiting and she thinks the IV Zofran is helping her symptoms. -- Received first dose of thymo. -- Hypokalemia improved. Hyperglycemic and DCS are following. -- Transaminases slightly downtrending. OBJECTIVE VITAL SIGNS: Temperature: [36 ??C-36.8 ??C] 36.8 ??C Resp Rate: [16-18] 16 Blood Pressure: (108-143)/(73-104) 123/81 SpO2: [94 %-98 %] 98 % Flow Rate (L/min): [0 L/min] 0 L/min Height: [152.6 cm] 152.6 cm Weight: [50 kg] 50 kg BSA (Calculated - sq m): [1.45 sq meters] 1.45 sq meters BMI (Calculated): [21.5 kg/m??] 21.5 kg/m?? Pulse Rate: [93-107] 93 Intake/Output Summary (Last 24 hours) at 09/07/2024 1139 Last data filed at 09/07/2024 1038 Gross per 24 hour Intake 1490 ml Output 1400 ml Net 90 ml PHYSICAL EXAMINATION General: chronically ill-appearing. Not in acute distress. Neuro: alert and oriented Heart: Normal pulse. No edema. Lungs: Normal breathing efforts. Abdomen: Soft. Mild tenderness to palpation in the left abdomen. No guarding or rigidity. DIAGNOSTICS Results from last 7 days Lab Units 09/07/2473109/06/24202909/05/24 1127 WBC x10(9)/L 8.7 6.4 4.5 HEMOGLOBIN g/dL 15.0 15.2* 15.9* HEMATOCRIT % 45.3* 43.6 46.1* PLATELETS AUTO x10(9)/L 109* 195 226 Results from last 7 days Lab Units 09/07/24 0709/06/24202909/05/24 1127 SODIUM mmol/L 133* 132* 133* CREATININE mg/dL 0.62 0.62 0.56* ESTIMATED GFR EGFR mL/min/BSA >90 >90 >90 BUN mg/dL 12 12 6 CHLORIDE mmol/L 95* 91* 94* Results from last 7 days Lab Units 09/06/24202909/05/24 1127 INR 1.0 0.9 Results from last 7 days Lab Units 09/07/2473109/06/242029 ALBUMIN g/dL 4.5 4.4 AST U/L 612* 745* ALT U/L 1028* 1089* ALK PHOS U/L 432* 405* BILIRUBIN DIRECT P mg/dL -- 2.7* BILIRUBIN DIRECT mg/dL 2.9* -- BILIRUBIN TOTAL mg/dL 3.7* 3.8* ASSESSMENT / PLAN #Status post liver transplantation for autoimmune hepatitis October 2022 # Hepatic artery stenosis, status post stenting December 2023 # Immunosuppression # 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 Admitted with acute cellular rejection in the setting of non adherence to tacrolimus due to nausea and vomiting. Transaminase extremely elevated. Started thymo protocol. Switching from sublingual tacrolimus 2 mg BID to 3 mg of tacrolimus capsule to see if this is better tolerated. We will also provide Zofran higher dose 8 mg as a premedication. Ultrasound transplant liver completed 09/07/2024 andthis shows steatosis of the hepatic allograft but patent vasculature with continue to improved resistive indices. - Switch some lingual tacrolimus to tacrolimus capsule 3 mg b.i.d.. - Zofran standing 8 mg b.i.d. before tacrolimus dosing. Compazine p.r.n.. - Continue Thymoglobulin protocol for ACR. We will likely discharge on Wednesday with plan to continue further doses 09/11 and 09/13 as outpatient. - Trend liver tests. Plan for biopsy after completing the thymo. #Chronic pancreatitis #Chronic abdominal pain syndrome #Intermittent nausea and vomiting - EGD 04/2024 normal including biopsies. Suspect a component of visceral hypersensitivity related pain and opioid hyperalgesia. Talked about the importance of avoiding opioids. Also the importance ofcontrolling diabetes. Updated nausea regimen. - utilize anti-nausea meds - Dietitian review and calorie counting. #Type 3 c diabetes - DCS consult - Important to control hyperglycemia. #Severe opioid use disorder - As above. Trying to avoid opioids for concern of worsening gastric emptying and background of visceral hypersensitivity unlikely opioid hyperalgesia. # Prophylaxis Starting pentamidine given on thymo. Tacrolimus 3 mg b.i.d. Continue Valcyte VTE Prophylaxis: SCDs GI Prophylaxis: Pantoprazole Anticipated Disposition: Home with family in the next 24-48 hrs Max Esposito., M.S. * Natanael Patel, Pharm.D., R.Ph., [facility] - 09/06/2024 7:42 PM CDT Images from the original note were not included. Admission Medication History Note Adherence issues: Reports missing a few doses a month Medication list source: Patient and Pharmacy or dispense records Medication related information: Upon arrival, I stopped in to visit Ms QUINONES and update her medications. She was able to easily recognize all her medications, but admitted, I puked up my morning meds. She is admitted for rejection (OLT 10/10/2022) treatment with Thymoglobulin. She has been treated for ACR with steroids in the past. She will need lymphocyte depleting ID prophylaxis. Donor serologies: CMV D+/R- A decision will have to be made regarding whether triple immunosuppression would be beneficial for her. Of note, last 1-month fills of tacrolimus and prednisone were in June. Prior to Admission Medications Med List Status: Pharmacy/RN Complete Set By: Natanael Patel, Pharm.D., R.Ph., BCPS at 09/06/2024 7:41 PM Taking? Last Dose Informant Start Date End Date LT acetaminophen (TylenoL 8 Hr) 650 mg ER tablet -- -- 04/20/24 -- Take 1 tablet (650 mg total) by mouth 3 (three) times a day. Typically takes 1 tablet every day in the morning, and two additional doses as needed for pain alcohol swabs (Alcohol Wipes) pads, medicated -- -- 08/09/24 -- Use as needed with diabetic supplies blood glucose control high,low (Accu-Chek Guide L1-L2 Ctrl Shayna) solution -- -- 05/15/24 -- Use as directed with diabetes glucose meter to ensure accurate blood glucose testing. Notes: DX: Diabetes Mellitus Type 2 - E11.9. Pharmacist may substitute brand, needle/syringe size of diabetic supply or adjust quantities down per patient preference or insurance coverage. blood sugar diagnostic strips -- -- 07/04/24 07/04/25 Use to test blood sugar 2 time(s) per day. Notes: DX: Diabetes Mellitus Type 2 - E11.9. Pharmacist may substitute brand, needle/syringe size of diabetic supply or adjust quantities down per patient preference or insurance coverage. blood-glucose meter mis -- -- 05/15/24 -- Test as directed for diabetes control. Notes: DX: Diabetes Mellitus Type 2 - E11.9. Pharmacist may substitute brand, needle/syringe size of diabetic supply or adjust quantities down per patient preference or insurance coverage. blood-glucose sensor (FreeStyle Kristina 3 Plus Sensor) device -- -- 07/06/24 -- Use as directed. Change sensor every 15 days cholecalciferol (Vitamin D3) 50 mcg (2,000 Unit) tablet 09/06/2024 at Morning -- 04/20/24 -- Take 1 tablet (50 mcg total) by mouth daily. cholestyramine (Questran) 4 gram packet 09/06/2024 at Morning -- 09/05/24 -- Take 60 mL (1 packet total) by mouth 2 (two) times a day as needed (itching). Take 3 hours away from other medications diclofenac sodium (Voltaren) 1 % gel -- -- 04/20/24 -- Apply 2 g topically 4 (four) times a day. Apply to abdomen or other areas of pain. HYDROmorphone (Dilaudid) 2 mg tablet 09/06/2024 at Noon -- 08/31/24 09/07/24 Take 1 tablet (2 mg total) by mouth every 6 (six) hours as needed for severe pain or score 7-10 of 10 for up to 7 days Indication: Chronic Pain/Nonacute Pain. Notes: Approval for substitution of equivalent dose/quantity of any available hydromorphone dosage forms, including compounds during drug shortage insulin aspart U-100 (NovoLOG Flexpen U-100 Insulin) 100 unit/mL (3 mL) pen () -- -- 08/25/24 09/05/24 Inject 4 Units under the skin 3 (three) times a day with meals for 7 days. For blood glucose: 140 -179: give 2 units 180-219: give 3 units 220-259: 4 units 260-299: 5 units 300-339: 6 units 340-379:7 units 380-399: 8 units Greater than 399: 9 units. Please adjust/decrease insulin regimen after visit with PCP Wednesday Notes: 4 units this am insulin glargine 100 unit/mL (3 mL) pen 09/06/2024 at Morning -- 07/04/24 -- Inject 7 Units under the skin 2 (two) times a day. Pharmacy select brand per patient insurance/preference. Patient to use glargine until she receives Tresiba. Patient taking differently: Inject 8 Units under the skin 2 (two) times a day. Pharmacy select brand per patient insurance/preference. Patient to use glargine until she receives Tresiba. Notes: Place on file. lancets -- -- 07/04/24 -- Use 2 (two) times a day. Use as directed for diabetes testing. Notes: DX: Diabetes Mellitus Type 2 - E11.9. Pharmacist may substitute brand, needle/syringe size of diabetic supply or adjust quantities down per patient preference or insurance coverage. levonorgestreL (MIRENA) 21 mcg/24 hours (8 yrs) 52 mg IUD -- Self 12/31/22 -- 1 Intra Uterine Device (1 each total) by intrauterine route continuously. Inserted 07/31/2022. lidocaine 4 % adhesive patch,medicated -- Self 04/20/24 -- Place 1 patch on the skin daily. Apply to painful areas. Patient taking differently: Place 1 patch on the skin daily as needed. Apply to painful areas as needed [id number] (Creon) 12,000-38,000-60,[address] capsule 09/06/2024 at Morning Self 07/04/24 -- Take 2 capsules (24,000 Units of lipase total) by mouth 3 (three) times a day with meals. meclizine (Antivert) 25 mg tablet 09/06/2024 at Morning -- 04/20/24 -- Take 1 tablet (25 mg total) by mouth 3 (three) times a day as needed for dizziness. methocarbamoL (Robaxin) 750 mg tablet 09/06/2024 at Morning -- 07/04/24 -- Take 1 tablet (750 mg total) by mouth 2 (two) times a day. mirtazapine (Remeron) 15 mg tablet 09/05/2024 at Bedtime -- 04/20/24 04/20/25 Take 1 tablet (15 [...] minimal response. ondansetron (Zofran) 4 mg tablet 09/06/2024 at Noon -- 08/25/24 -- Take 1 tablet (4 mg total) by mouth every 6 (six) hours as needed for nausea or vomiting. pantoprazole (Protonix) 40 mg EC tablet 09/06/2024 at Morning -- 04/20/24 -- Take 1 tablet (40 [...] of beverage. predniSONE (Deltasone) 5 mg tablet 09/06/2024 at Morning -- 06/28/24 -- Take 1 tablet (5 mg total) by mouth daily. pregabalin (Lyrica) 25 mg capsule 09/06/2024 at Morning Self 08/25/24 09/24/24 Take 1 capsule (25 mg total) by mouth 2 (two) times a day. Patient taking differently: Take 75 mg by mouth 2 (two) times a day. prochlorperazine (Compazine) 10 mg tablet -- -- 08/31/24 -- Take 1 tablet (10 mg total) by mouth every 6 (six) hours as needed for nausea or vomiting. sennosides-docusate sodium (Senokot-S) 8.6-50 mg per tablet -- -- 06/27/24 -- Take 1 tablet by mouth 2 (two) times a day as needed for constipation. tacrolimus (Prograf) 1 mg capsule 09/06/2024 at Morning -- 06/27/24 06/27/25 [address] 2 capsules (2 mg total) under the tongue every morning AND 2 capsules (2 mg total) every evening. Notes: Fill only with AB rated generics of brand name Prograf; Do not use SuperTruper generic tacrolimus products. Indications: liver transplant rejection prevention. teriparatide (Forteo) 20 mcg/dose (600mcg/2.4mL) injection 09/05/2024 at Noon Self 10/27/23 -- Inject 0.08 mL (20 mcg total) under the skin daily. traZODone (DesyreL) 50 mg tablet 09/05/2024 at Bedtime -- 03/27/25 -- TAKE 1 TO 3 TABLETS(50 TO [...] documented in this encounter H&P Notes * Michelle Luz M.D., M.S. - 09/07/2024 12:21 PM CDT LIVER TRANSPLANT INPATIENT SERVICE - ADMISSION NOTE REFERRAL SOURCE: Liver transplant clinic CHIEF COMPLAINT: Moderate acute cellular rejection HISTORY OF PRESENT ILLNESS: I agree with the history of present illness, past medical history, physical examination findings, and assessment and plan as outlined by Ben Redmond APRN in her note of September 06, 2024. In addition, Viktor seen and evaluated the patient. In summary, Ms. Catia Quinones is a 34 y.o. 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 Her posttransplant course was initially complicated by hepatic artery stenosis requiring stent placement in December 2023. She also has a history of episodic acute cellular rejection, with an episode in 04/2024 responsive to steroids, and again in 08/2024. She received 3 doses of Solu-Medrol. She has been on sublingual tacrolimus for chronic immunosuppression due to history of chronic abdominal pain, nausea, and vomiting in the setting of chronic pancreatitis and opioid use. Around the time of this last episode of rejection, tacrolimus trough levels have been subtherapeutic and undetectable. She had acute rise in transaminases on 09/05, with ALT 1094, AST 841, with alkaline phosphatase 400s and total bilirubin 3.8 (direct bilirubin 2.7). She underwent liver biopsy on 09/05/2024 that demonstrated moderate acute cellular rejection. There was moderate steato sis. She does also have a history of type 3 diabetes mellitus. Due to multiple concerns and worsening rejection despite 3 doses of Solu-Medrol, she was arranged for admission for initiation of Thymoglobulin protocol. 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 Quinones is being directly admitted for initiation of thymoglobulin protocol for acute cellularrejection that progressed from [id number]-sr-kwskrqcy severity despite 3 doses of IV Solu-Medrol. She received day 1 of thymoglobulin on 09/06 evening. We will plan to administer days 2 and 3 of thymoglobulin per protocol, and plan to arrange outpatient infusions for days 5 and 7, along with follow-up liver biopsy on day 8. She will receive protocol steroids in conjunction. In the setting of her history of type 3 diabetes mellitus, we will request for consultation with DCS. She has been on sublingual tacrolimus, with report of difficulty keeping this down in the setting of acute on chronic nausea and vomiting. Tacrolimus trough levels have been subtherapeutic on recent testing. This has been attributed to missed doses and symptomatic nausea/vomiting. Despite potentialvolatility of sublingual dosing, we will try to maintain tacrolimus as her primary immunosuppression regimen. However, we will explore alternative options in the meantime, as well as schedule an antiemetic regimen to manage her symptomatic nausea and vomiting. She currently reports tolerating oral diet with IV Zofran use. During team rounds, we had a discussion with the patient regarding management of her chronic symptoms. She reports that she plans to follow-up with outpatient pain rehabilitation program. She verbalizes understanding that multimodal pain management with plan for taper and goal discontinuation of opioids is recommended. DISPOSITION: Patient requires ongoing hospital care at this time. * Ben Redmond APRN, C.N.P., D.N.P. - 09/06/2024 5:38 PM CDT Liver General Admission REFERRAL: Liver transplant clinic CHIEF COMPLAINT: acute cellular rejection liver HISTORY OF PRESENT ILLNESS Ms. Quinones is a 34 y.o. year old female who presents with acute cellular rejection. She underwentdeceased donor liver transplant on October 2022 for alcohol associated liver disease. She has a medical history of acute pancreatitis, associated abdominal pain and nausea and vomiting. She has had a complicated post transplant course of hepatic artery stenosis requiring stent placement December 2023. She has had several episodes of steroid responsive rejection. She recently was admitted in August 2024for acute cellular rejection for which she received 3 doses of high-dose steroids. She presents to the outpatient liver transplant clinic today with complaints of continued nausea vomiting along with elevated liver enzymes. ALT 1104 AST 875 ALK 451. Her tacrolimus trough was <.01. She denies anynew symptoms. She had a liver biopsy on 09/06/2024 and it showed moderate acute cellular rejection and moderate steatosis. She states she has had ongoing nausea and vomits several times a day in correlation with taking medications or food. She continually feels nauseous and vomits several times basis. She states that shenormally places the sublingual tacrolimus under her tongue but within minutes she vomits and she loses the tacrolimus dose. She denies fever, diarrhea, chills. She has not lost any weight. REVIEW OF SYSTEMS ROS negative, except as mentioned in HPI. DIAGNOSTIC FINDINGS I have reviewed laboratory, imaging, and other diagnostic studies. Pertinent findings as follows: EXAM General: chronically ill-appearing Neuro: alert and oriented Heart: S1, S2 normal Edema: none Lungs: Lungs clear bilaterally Abdomen: Soft and Tender to palpation: location generalized and LLQ degree moderate Bowel sounds are normal ASSESSMENT / PLAN #1 Status post liver transplantation for autoimmune hepatitis October 2022 #2 Hepatic artery stenosis, status post stenting December 2023 #3 Immunosuppression - continue home tacrolimus. - utilize anti-nausea meds to prevent loss of drug - initiate Thymoglobulin protocol for ACR - will check daily LFT's and plan for follow up liver biopsy #4 Chronic pancreatitis #5 Chronic abdominal pain syndrome #6 Intermittent nausea and vomiting - utilize anti-nausea meds - examine home regimen for nausea and vomiting control to help optimize tacrolimus absorption. #7 Type 3 c diabetes - DCS consult #8 Severe opioid use disorder - Had a discussion which mirrors previous conversations for pain control while hospitalized. Baseline home pain regimen is ordered but plan would be not to escalate doses or utilize IV while hospitalized. Patient in agreement to utilize adjunct pain relief measures. VTE Prophylaxis: SCDs GI Prophylaxis: Pantoprazole Anticipated Disposition: Home with family in the next 24-48 hrs documented in this encounter Consult Notes * Dyana Robles RDN, LD - 09/08/2024 11:59 AM CDTAssociated Order(s): Dietitian consult (hospital) Dietitian consult (hospital) Referring Provider: Rachna Bhat M.S., RDN, LD Clinical Nutrition: Initial Assessment Clinical Nutrition was requested to evaluate patient for assessment of nutritional status and oral intake encouragement Completed visit with patient and multidisciplinary transplant team today as part of face to face care. SUBJECTIVE Ms. Quinones is a 34 y.o. female admitted for treatment of moderate cellular rejection of her hepatic allograft. The patient is status post liver transplant 10/10/2022 for alcohol associated liver disease. PMH includes HAT, h/o rejection, Pertinent History: Medical History[1]DM 2- DCS following. Surgical History[2] Current Nutrition: Appetite fair. Did not eat breakfast yet as she reports a poor night's sleep x 2and was just awakening at noon. Percentage of Meals Eaten for the past 72 hrs: Percent Meals Eaten (%) 09/08/24 0701 50 09/07/24 1150 75 09/07/24 1015 100 09/07/24 0000 100 Nutrition Prior to Admission: The patient was having nausea and vomiting prior to admission we she feels is associated with increased pain. She likes Ensure Clear supplements which are high in carbohydrate She drinks 1-2 per day at home. Nutrition Education/Counseling: Pre-transplant nutrition 08/2021; Post transplant nutrition 10/14/2022. Food Allergies/Intolerances: NKFA OBJECTIVE Current nutrition orders: Dietary Orders (From admission, onward) Start Ordered 09/08/24 1158 Oral supplement -Supplement; Ensure Clear (mixed ulloa); 1 each; Take at: Lunch (OralNutrition Supplement) Until discontinued Question Answer Comment Type: Supplement Supplement: Ensure Clear (mixed ulloa) Size: 1 each Take at: Lunch 09/08/24 1158 09/08/24 1158 Oral supplement -Supplement; Ensure Clear (apple); 1 each; Take at: Dinner (Oral Nutrition Supplement) Until discontinued Question Answer Comment Type: Supplement Supplement: Ensure Clear (apple) Size: 1 each Take at: Dinner 09/08/24 1158 09/06/24 1846 Adult Diet Regular (Adult Diet) Diet effective now Question: Diet texture: Answer: Regular 09/06/24 1845 Pertinent Labs: Last 2 results Lab Units 09/08/24 0504 09/07/24 0732 09/06/24 2030 POTASSIUM mmol/L 3.7 4.1 3.4* BUN mg/dL 14 12 12 CALCIUM mg/dL 8.8 9.4 9.4 CREATININE mg/dL 0.76 0.62 0.62 Last 2 results Lab Units 09/08/24 0504 09/07/24 0732 AST U/L 326* 612* ALT U/L 701* 1028* SODIUM mmol/L 135 133* POTASSIUM mmol/L 3.7 4.1 ALK PHOS U/L 354* 432* BILIRUBIN TOTAL mg/dL 1.5* 3.7* Recent Labs Lab Units 05/12/24 0606 HEMOGLOBIN A1C % 7.5* Chewing and Swallowing: No issues GI Function:Last BM Date: 09/06/24, Lee Stool Chart: Type 4: Like a sausage or snake, smooth and soft, Passing Flatus: Yes Integumentary/Wounds: Lines/Drains/Airways Wound Duration Wound 09/05/24 Puncture Abdomen Lateral;Right;Upper;Quadrant Liver Bx 2 days Medications: Current Medications[3]includes Vitamin D, insulin, multivitamin, Creon, Mirtazapine Anthropometrics: Height: 152.6 cm Admission Weight: 50 kg (09/06/2024) Current Weight: 50 kg [place] Body Weight (Calculated) : 45.7 kg BMI (Calculated): 21.5 kg/m?? Net IO Since Admission: 2,495.75 mL [09/08/24 1213] Weight history: Difficult to assess as patient thinks her weight was up with fluid recently. Wt Readings from Last 12 Encounters: 09/06/24 50 kg 09/05/24 55.1 kg 08/31/24 55.1 kg 08/21/24 53.7 kg 08/11/24 54.5 kg 07/26/24 54 kg 07/25/24 53.8 kg 07/01/24 44.3 kg 06/27/24 45.4 kg 05/25/24 50.1 kg 05/23/24 50.1 kg 05/11/24 48 kg ASSESSMENT / PLAN Nutrition Diagnosis: Malnutrition (undernutrition) related to chronic issue with pancreatitis now allograft rejection asevidenced by intermittent N/V, and moderate muscle loss on physical exam Initiated Malnutrition Assessment: ASPEN Criteria of Malnutrition: Nutritional Status: Non-severe (moderate) Malnutrition Malnutrition in the Context of: Acute Illness or Injury (acute on chronic) Based on: Energy Intake: Less than 75% of estimated energy requirement for greater than or equal to 7 days Interpretation of Weight Loss: No Change (up and down with fluid, overall stable) Body Fat: Mild Loss Muscle Mass: Moderate Loss Estimated Needs: Total Calorie Needs: 5886-3513 calories/day Method to Estimate Energy Needs: kcal/kg (30-35 kcal/kg) Weight Used for Equation Calculations: 50 kg Total Protein Needs: 50 grams/day (Method to Estimate Protein Needs (g/kg): 1 - 1.2 gm/kg) Weight Used to Calculate Protein Needs (Kg): 50 kg Nutrition Intervention: Monitoring/Evaluation: Nutrition parameter to monitor: Meals/Supplement Intake, Weight Status, Pertinent Labs, and Nausea/Vomiting Desired Outcome: Consume 100% of 1-2 oral nutrition supplements daily- will send Ensure Clear (the one she likes) with two meals/d Consume 75% of 3 small meals/day Recommendations: As discussed on rounds, may d/c multivitamin to reduce pill burden. Patient goal of weight stability and two Ensure Clear/day Clinical Nutrition will continue to follow. For questions about patient's nutritional care please contact pager [phone] on weekdays 07:30-16:00 or [phone] on weekends/holidays ([facility] [place]) [phone]. [1] Past Medical History: Diagnosis Date Alcoholic Hepatitis Without Ascites (HCC) 02/08/2022 Anemia About 16 years ago Anxiety Generalized Disorder 15-16 years ago Blood Transfusion No Diagnosis March 2021 Deficiency Coagulation Acquired (HCC) 07/07/2021 Diabetes Mellitus NOS 2024 Esophageal Varices Without Bleeding (HCC) 01/28/2022 Gastroesophageal Reflux Disease NOS Hemorrhage Gastrointestinal Liver Disease Other Injury Of Unspecified Body Region About 5 years ago Broke several small bones in left foot and tore tendons. Pain Abdominal NOS Pancreatitis Acute (HCC) About 6 years ago Stone Kidney About 4 years ago [2] Past Surgical History: Procedure Laterality Date ELBOW SURGERY Left 2018 per patient ESOPHAGOGASTRODUODENOSCOPY N/A 04/02/2022 Procedure: ESOPHAGOGASTRODUODENOSCOPY; Surgeon: Matthew Jerome M.B.B.S., M.D.; Location: [facility] GI LAB ESOPHAGOGASTRODUODENOSCOPY N/A 09/27/2022 Procedure: ESOPHAGOGASTRODUODENOSCOPY; Surgeon: Naomie Mueller M.B.BSumaSSuma; Location: [facility] GI LAB GALLBLADDER SURGERY 10/10/2022 Came out when i had my liver transplant LITHOTRIPSY EXTRACORPOREAL SHOCK WAVE UNILATERAL N/A 12/02/2022 Procedure: Pancreatic LITHOTRIPSY EXTRACORPOREAL SHOCK WAVE UNILATERAL; Surgeon: Juan Casillas M.D., M.P.H.; Location: [facility] OR ORGAN TRANSPLANT 10/10/2022 Liver transplant surgery OTHER SURGICAL HISTORY Unsure Tendon repair surgery and surgery on left elbow. TENDON REPAIR Left left foot per patient TRANSPLANT LIVER - DONOR WITH BACK TABLE PREP LIVER ALLOGRAFT N/A 10/10/2022 Procedure: TRANSPLANT LIVER - DONOR WITH BACK TABLE PREP LIVER ALLOGRAFT; Surgeon: Nataliia Vann M.D.; Location: [facility] OR [3] Current Facility-Administered Medications: acetaminophen tablet 325 mg (TylenoL), 325 mg, oral, PRN, Ben Redmond APRN, C.N.P., D.N.P. acetaminophen tablet 500 mg (TylenoL), 500 mg, oral, Q6H PRN, Ben Redmond APRN, C.N.P., D.N.P., 500 mg at 09/07/243 acetaminophen tablet 650 mg (TylenoL), 650 mg, oral, Daily, Ben Redmond APRN, C.N.P., D.N.P.,650 mg at 09/07/242125 anti-thymocyte globulin rabbit 75 mg, hydrocortisone sodium succinate (PF) 12.5 mg, heparin (porcine) 500 Units in NaCl 0.9% 265.75 mL IVPB (Thymoglobulin), 1.5 mg/kg (Mexia), intravenous, Daily, Ben Redmond APRN, C.N.P., D.N.P., Last Rate: 44.3 mL/hr at 09/07/240, 75 mg at 09/07/24 2220 bisacodyL suppository 10 mg (Dulcolax), 10 mg, rectal, Daily PRN, Ben Redmond APRN, C.N.P., D.N.P. calcium carbonate chewable tablet 200 mg of calcium (Tums), 200 mg of calcium, oral, Q4H PRN, Ben Redmond APRN, C.N.P., D.N.P. camphor-menthoL 0.5-0.5 % lotion 1 Application (Sarna), 1 Application, topical, TID PRN, Edgar Montgomery M.BSumaB.S., M.S. cholecalciferol (vitamin D3) tablet 50 mcg, 50 mcg, oral, Daily, Ben Redmond APRN, C.N.P., D.N.P., 50 mcg at 09/08/24 0825 cholestyramine 4 gram packet 1 packet (Prevalite), 1 packet, oral, BID PRN, Natanael Patel, Pharm.D., R.Ph., BCPS, 1 packet at 09/07/24 1149 diclofenac sodium 1 % gel 2 g (Voltaren), 2 g, topical, 4x Daily, Ben Redmond APRN, C.N.P., D.N.P. diphenhydrAMINE capsule 25 mg (BenadryL), 25 mg, oral, Daily, Ben Redmond APRN, C.N.P., D.N.P., 25 mg at 09/07/242125 diphenhydrAMINE injection 25 mg (BenadryL), 25 mg, intravenous, PRN, Ben Redmond APRN, C.N.P., D.N.P. hydrocortisone sodium succinate (PF) injection 100 mg (Solu-Cortef), 100 mg, intravenous, PRN, Ben Redmond APRN, C.N.P., D.N.P. HYDROmorphone tablet 2 mg (Dilaudid), 2 mg, oral, Q6H PRN, Ben Redmond APRN, C.N.P., D.N.P., 2 mg at 09/08/24 0307 insulin aspart U-100 (Carbohydrate Count) injection 0-40 Units (NovoLOG FlexPen), 0-40 Units, subcutaneous, TID with meals, Ines Atkins CORPORATE TRAVEL COORDINATOR, C.N.P. insulin aspart U-100 injection 0-13 Units (NovoLOG FlexPen), 0-13 Units, subcutaneous, TID, Magy Barclay APRN, C.N.P., 10 Units at 09/08/24 0835 insulin aspart U-100 injection 0-7 Units (NovoLOG FlexPen), 0-7 Units, subcutaneous, Daily at bedtime, Magy Barclay CORPORATE TRAVEL COORDINATOR, C.N.P. insulin aspart U-100 injection 0-7 Units (NovoLOG FlexPen), 0-7 Units, subcutaneous, Q24H, Magy Barclay CORPORATE TRAVEL COORDINATOR, C.N.P., 6 Units at 09/08/24 0309 insulin glargine injection 8 Units, 8 Units, subcutaneous, BID, Ben Redmond APRN, C.N.P., D.N.P., 8 Units at 09/08/24 0829 lidocaine 5 % 1 patch (Lidoderm), 1 patch, transdermal, Daily PRN, Ben Redmond APRN, C.N.P., D.N.P., 1 patch at 09/07/24 1223 evhwda-cslhohye-wzlmbsf 12,000-38,000-60,[address] capsule 24,000 Units of lipase (Creon), 24,000 Units of lipase, oral, TID with meals, Ben Redmond APRN, C.N.P., D.N.P., 24,000 Units of lipase at 09/07/24 1823 meclizine tablet 25 mg (Antivert), 25 mg, oral, TID PRN, Ben Redmond APRN, C.N.P., D.N.P. methocarbamoL tablet 750 mg (Robaxin), 750 mg, oral, BID PRN, Ben Redmond APRN, C.N.P., D.N.P. mirtazapine tablet 15 mg (Remeron), 15 mg, oral, Daily at bedtime, Ben Redmond APRN, C.N.P., D.N.P., 15 mg at 09/07/242013 houdjrxnqjch-hair-OW-Ca-minerals 400 mcg (folic acid) tablet 1 tablet, 1 tablet, oral, Daily, Ben Redmond APRN, C.N.P., D.N.P., 1 tablet at 09/08/24824 ondansetron ODT disintegrating tablet 8 mg (Zofran-ODT), 8 mg, oral, BID, Edgar Montgomery M.B.B.S., M.S., 8 mg at 09/08/[address] tablet 40 mg (Protonix), 40 mg, oral, Daily before morning meal, Ben Redmond APRN, C.N.P., D.N.P., 40 mg at 09/08/24 07 polyethylene glycol powder packet 17 g (Miralax), 17 g, oral, Daily PRN, Ben Redmond APRN, C.N.P., D.N.P. predniSONE tablet 30 mg (Deltasone), 30 mg, oral, Daily, Ben Redmond APRN, C.N.P., D.N.P., 30mg at 09/07/242125 predniSONE tablet 5 mg (Deltasone), 5 mg, oral, Daily, Ben Redmond APRN, C.N.P., D.N.P., 5 mgat 05/09/25 0825 pregabalin capsule 75 mg (Lyrica), 75 mg, oral, BID, Ben Redmond APRN, C.N.P., D.N.P., 75 mg at 09/08/24 0826 prochlorperazine tablet 10 mg (Compazine), 10 mg, oral, Q6H PRN, Ben Redmond APRN, C.N.P., D.N.P., 10 mg at 09/08/24 0307 promethazine injection 6.25 mg (Phenergan), 6.25 mg, intravenous, Q6H PRN, Ben Redmond APRN, C.N.P., D.N.P. sennosides-docusate sodium 8.6-50 mg per tablet 1 tablet (Senokot-S), 1 tablet, oral, BID PRN, Ben Redmond APRN, C.N.P., D.N.P. simethicone chewable tablet 80 mg, 80 mg, oral, Q4H PRN, Ben Redmond APRN, C.N.P., D.N.P. sodium chloride 0.9 % injection 10 mL, 10 mL, intravenous, PRN, Ben Redmond APRN, C.N.P., D.N.P. sodium chloride 0.9 % injection 3 mL, 3 mL, intravenous, PRN, Ben Redmond APRN, C.N.P., D.N.P. sodium chloride 0.9 % injection 3 mL, 3 mL, intravenous, Q12H LAWRENCE, Ben Redmond APRN, C.N.P., D.N.P., 3 mL at 09/08/24 0829 tacrolimus capsule 3 mg (Prograf), 3 mg, oral, BID, Edgar Montgomery M.B.B.S., M.S., 3 mg at 09/08/24 0825 traZODone tablet 150 mg (DesyreL), 150 mg, oral, At bedtime PRN, Ben Redmond APRN, C.N.P., D.N.P. valGANciclovir tablet 900 mg (Valcyte), 900 mg, oral, Daily with morning meal, Natanael Patel, D., R.Ph., BCPS, 900 mg at 09/08/24 0825 * Magy Barclay APRN, C.N.P. - 09/07/2024 10:53 AM CDTAssociated Order(s): Diabetes consult (hospital) SUBJECTIVE Diabetes consult (hospital) Referring Provider: Ben Redmond APRN, C.N.P., D.N.P. CHIEF COMPLAINT/REASON FOR CONSULT Patient seen today for blood glucose management. The patient was admitted on 09/06/2024 for Rejection Liver Transplant (HCC) Liver transplant 10/10/2022. DCS has followed patient in the past, last for DKA in June and transplant endocrine outpatient last visit 08/15/2024 and f/u phone visit for insulin dose adjustment for hyperglycemia 08/31/2024. HISTORY OF PRESENT ILLNESS DIABETES HISTORY: History of diabetes mellitus: initially diagnosed with steroid induced hyperglycemia following transplant. Diabetes mellitus diagnosed 05/2024, patient related to Prednisone. Low c-peptide readings with chronic pancreatitis. Previous hospitalization for DKA, 06/21/2024 glucose 976 mg/dl, anion gap unable to be calculated, bicarbonate <5, beta-hydroxybutyrate 14.0, pH 6.89 PREADMISSION DIABETES THERAPY: G8 twice daily (increased from 7 units twice daily08/31). Novolog 4 units three times daily plus CS 2units for every 40 points >140 mg/dl. GLUCOSE MONITORING: The patient monitors blood glucose at home continuously with BeInSyncyle Kristina continuous glucose monitor (CGM). Results of home glucose monitoring per patient report: yesterday 160-170's after increase in Lantus insulin dose 08/31. She states variable glucose control with random hyper and hypoglycemia. . HYPOGLYCEMIA: Patient experiences hypoglycemia at random times Has intact awareness. Symptoms include shaky and hot Treats with Ensure or juice. States more difficult to recover recently. DIABETES COMPLICATIONS/CO-MORBIDITIES: Patient denies any complications Liver transplant. Opioid use disorder. DIET: States more grazing during the day. Recent nausea and vomiting . WEIGHT: Patients weight has been stable. ACTIVITY: No regular exercise. SCREENING: Did not assess. FAMILY HISTORY Paternal grandfather HOSPITAL COURSE: Past 24 Hour Blood Glucose Readings: Recent Labs 09/07/24 0811 09/07/24 0732 09/06/24 2141 09/06/24 2030 GLUCOSEPOC 398 H -- 220 H -- GLUCOSE -- 439 Crit H -- 208 H Yesterday received Lantus 8 units at HS STEROIDS: Methylprednisolone 250 mg and hydrocortisone 12.5 mg and today prednisone 30 mg pre med. Current Diet Adult Diet Regular starting at 09/06 184 REVIEW OF SYSTEMS Pertinent items are noted in History of Present Illness. PREADMISSION MEDICATION: Diabetes medication(s) were reconciled on 09/07/2024. OBJECTIVE VITAL SIGNS Temperature: 36.8 ??C Resp Rate: 18 Blood Pressure: 108/73 BP Location: Left arm;Upper SpO2: 96 % Flow Rate (L/min): 0 L/min BSA (Calculated - sq m): 1.45 sq meters BMI (Calculated): 21.5 kg/m?? Height: 152.6 cm Weight: 50 kg Body mass index is 21.47 kg/m??. PHYSICAL EXAMINATION Pulmonary Effort: Pulmonary effort is normal. Neurological Mental Status: She is alert. Psychiatric Mood and Affect: Mood normal. Behavior: Behavior normal. Thought Content: Thought content normal. Judgment: Judgment normal. DIAGNOSTICS I have reviewed relevant diagnostics and labs. Lab Results Component Value Date HGBA1C 7.5 (H) 05/12/2024 Estimated Creatinine Clearance: 100.9 mL/min (by C-G formula based on SCr of 0.62 mg/dL). Lab Results Component Value Date CREATININE 0.62 09/07/2024 ASSESSMENT / PLAN #1 diabetes mellitus, type 3 C #2 Hyperglycemia in the setting of steroids #3 Status post liver transplant on 10/10/2022 #4 Rejection Liver INPATIENT PLAN: - Blood Glucose Monitoring: four times daily before meals and bedtime plus 0200 - Glucose Goal: 140-180 mg/dL. - Basal: Lantus 8 units twice daily. - Mealtime: NovoLog 1 unit for every 8 grams of carbohydrates consumed with meals. - Correction Scale: NovoLog moderate correction scale three times a day, modified bedtime correction scale, and moderate correction scale 0200 - DCS will evaluate and adjust insulin doses as indicated to achieve glycemic goal. - Consults: Diabetes Educators: download Kristina - DCS will adjust insulin doses in the setting of steroid induced hyperglycemia. ANTICIPATED DISMISSAL PLAN: Preadmission regimen with dose adjustment. Blood Glucose Frequency: via continuous glucose monitor (CGM) Goal: 100-140 mg/dL F/u in transplant endocrine has already been arranged. 10/11 Please page DCS within 24 hours prior to hospital dismissal for final dismissal recommendations. Discussed above plan with the patient. Patient is alert and oriented and in agreement with the plan. Thank you for the consult. DCS pager [facility] [phone] will follow. Call primary service for diabetes concerns between 6:30 p.m. and 6:30 a.m. Primary service to contact cotton dispatcher Endocrinology fellow via hospital nitrogen operator for questions. documented in this encounter Nursing Notes * Chelsy Doss, R.N. - 09/09/2024 5:50 PM CDT Shift Goals: Clinical Goals for the Shift: maintain safety Identify possible barriers to meeting goals/advancing plan of care: n/a End of Shift Summary: Patient discharged safely to home/self care. AVS and medication list reviewedwith patient and caregiver at the bedside. All questions and concerns addressed. Vital signs stable. No nursing barriers to discharge identified at this time. documented in this encounter Miscellaneous Notes * Documentation Clarification - Juan Mueller M.D. - 09/09/2024 5:52 PM CDT PROVIDER RESPONSE TEXT: To clarify, the appropriate diagnosis supported by the clinical indicators: DKA was ruled out QUERY TEXT: Validation Clarification VALIDATION DOCUMENTATION REQUEST A diagnosis in the record noted below requires additional clinical criteria or rationale to validate. Clinical Indicators/Risk Factors/Treatment: Per your 09/09 Discharge Summary; PRINCIPAL DIAGNOSIS : Rejection Liver Transplant Active Problems: Diabetes Mellitus Due To Underlying Condition With Ketoacidosis Without Coma Diabetes Mellitus Type 2 Without Complication Results Review Section: Glucose, POCT, B: 5/7 was 220 5/8 ranged from 117 to 398 5/9 ranged from 109 to 404 5/10 ranged from 144 to 382 5/8 Glucose, S was 439 5/10 Glucose, S was 442 Anion gap ranged from 11-17 No ABG drawn this admission No Beta-hydroxybutyrate drawn this admission Options provided: -- DKA was ruled out -- DKA was confirmed as evidence by the following criteria, Please add your clinical criteria/rationale to support the diagnosis -- Other - I will add my own diagnosis -- Disagree - Clinically unable to determine / Unknown -- Refer to Clinical Documentation Reviewer Query created by: Antoine Serrato on 09/17/2024 7:12 PM Electronically signed by: Juan Mueller M.D. 09/19/2024 12:21 PM * Hospital Course - Juan Mueller M.D. - 09/08/2024 3:48 PM CDT Ms. 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 She is presenting this time from the clinic with moderate cellular rejection for thymo protocol. This is in the setting of not tolerating sublingual tacrolimus due to nausea and vomiting, in the setting of chronic abdominal pain. Transaminases were high with ALT >1000. Ultrasound liver transplant was largely unremarkable. The patient was switched to whole tacrolimus capsules 3 mg b.i.d. with Zofran 8 mg premedication 30minutes prior to the dose and this was tolerated well. Oral intake also improved. Started Thymoglobulin therapy and received 3 doses inpatient. Liver tests were improving at the time of discharge. Plan to continue to further Thymoglobulin doses 09/11 & 09/13. The patient will follow in the liver transplant Clinic 09/15 and planned for liver biopsy on the same day. We have recommended that she continue with oral tacrolimus capsules with a goal trough of 5 to 8. documented in this encounter Plan of Treatment Upcoming Encounters Date Type Department Care Team (Latest Contact Info) Description 10/05/2024 9:30 AM CDT Appointment Department of Radiology, [facility] in [address] [phone] Marisabel Carpenter APRN, C.N.P., D.N.P. [address] [place] [phone] 10/05/2024 12:00 PM CDT Appointment Division of Pulmonary Medicine in [address] [phone] Edgar Montgomery M.B.B.S., M.S. [address] [place] [phone] 10/05/2024 2:45 PM CDT Infusion Department of Infusion Therapy in [address] [phone] Noreen Ansari P.A.-C., M.S. [address] [place] [phone] 10/10/2024 7:50 AM CDT Lab Department of Laboratory Medicine and Pathology, [facility] in [address] [phone] Marisabel Carpenter APRN, C.N.P., D.N.P. [address] [place] [phone] 10/10/2024 8:00 AM CDT Lab Department of Laboratory Medicine and Pathology, [facility] in [place], [place] [address] [place] [address] Marisabel Carpenter APRN, C.N.P., D.N.P. [address] [place] [phone] 10/10/2024 8:30 AM CDT Nurse Only [facility] in [place], [place] [address] [place] [address] Marisabel Carpenter APRN, C.N.P., D.N.P. [address] [place] [phone] 10/10/2024 9:20 AM CDT [facility] [place] [place] [address] [place] [address] Marisabel Carpenter APRN, C.N.P., D.N.P. [address] [place] [phone] 10/10/2024 9:45 AM CDT Appointment Department of Laboratory Medicine and Pathology, [facility] in [place], [place] [address] [place] [address] Marisabel Carpenter APRN, C.N.P., D.N.P. [address] [place] [phone] 10/10/2024 1:30 PM CDT Appointment Department of Radiology, [facility] in [place], [place] [address] [place] [address] Marisabel Carpenter APRN, C.N.P., D.N.P. [address] [place] [phone] Discharge Disposition: Home or Self Care 10/10/2024 2:45 PM CDT Appointment Department of Radiology, [facility], in [place], [place] [address] [place] [address] Marisabel Carpenter APRN, C.N.Frances, D.N.P. [address] [place] [phone] 10/11/2024 8:00 AM CDT [facility] [place], [place] [address] [place] [phone] Marisabel Carpenter APRN, C.N.Frances, D.N.P. [address] [place] [phone] 10/11/2024 11:00 AM CDT [facility] in [place], [place] [address] [place] [phone] Sree Devlin M.D. [address] [place] [phone] 10/11/2024 1:00 PM CDT Comprehensive Visit Department of Otorhinolaryngology in [place], [place] [address] [place] [phone] Randal Urbano, Shanita.Silvano.-C., M.S. [address] [place] [phone] 10/11/2024 2:00 PM CDT [facility] in [place], [place] [address] [place] [address] Hiro Murillo P.A.-C. [address] [place] [phone] 10/11/2024 4:00 PM CDT Comprehensive Visit Department of Dermatology in [place], [place] [address] [place] [phone] Parul Martinez M.D. [address] [place] [phone] 10/12/2024 8:00 AM CDT Telemedicine [facility] in [place], [place] [address] [place] [phone] Ervin Mckeon D.O. [address] [place] [phone] 11/01/2024 2:15 PM CDT Appointment Division of Pulmonary Medicine in [place], [place] [address] [place] [phone] Edgar Montgomery M.B.B.S., M.S. [address] [place] [phone] documented as of this encounter Procedures Procedure Name Priority Date/Time Associated Diagnosis Comments GLUCOSE POCT, B Routine 09/09/2024 5:06 PM CDT GLUCOSE POCT, B Routine 09/09/2024 9:56 AM CDT GLUCOSE POCT, B Routine 09/09/2024 6:34 AM CDT HEPATIC FUNCTION PANEL, S Routine 09/09/2024 5:36 AM CDT TACROLIMUS LEVEL, B Routine 09/09/2024 5 :36 AM CDT CBC WITH DIFFERENTIAL, B Routine 09/09/2024 5:36 AM CDT BASIC METABOLIC PANEL, S/P Routine 09/09/2024 5:36 AM CDT GLUCOSE POCT, B Routine 09/09/2024 1:52 AM CDT GLUCOSE POCT, B Routine 09/08/2024 11:42 PM CDT GLUCOSE POCT, B Routine 09/08/2024 8:07 PM CDT GLUCOSE POCT, B Routine 09/08/2024 4:17 PM CDT GLUCOSE POCT, B Routine 09/08/2024 12:13 PM CDT GLUCOSE POCT, B Routine 09/08/2024 8:30 AM CDT HEPATIC FUNCTION PANEL, S Routine 09/08/2024 5:04 AM CDT TACROLIMUS LEVEL, B Routine 09/08/2024 5 :04 AM CDT CBC WITH DIFFERENTIAL, B Routine 09/08/2024 5:04 AM CDT BASIC METABOLIC PANEL, S/P Routine 09/08/2024 5:04 AM CDT GLUCOSE POCT, B Routine 09/08/2024 3:06 AM CDT GLUCOSE POCT, B Routine 09/07/2024 11:24 PM CDT GLUCOSE POCT, B Routine 09/07/2024 5:40 PM CDT GLUCOSE POCT, B Routine 09/07/2024 1:26 PM CDT LIVER TRANSPLANT RAD - Routine (most inpatients and all outpatients) 09/07/2024 10:36 AM CDT GLUCOSE POCT, B Routine 09/07/2024 8:11 AM CDT HEPATIC FUNCTION PANEL, S Routine 09/07/2024 7:32 AM CDT TACROLIMUS LEVEL, B Routine 09/07/2024 7 :32 AM CDT CBC WITH DIFFERENTIAL, B Routine 09/07/2024 7:32 AM CDT BASIC METABOLIC PANEL, S/P Routine 09/07/2024 7:32 AM CDT GLUCOSE POCT, B Routine 09/06/2024 9:41 PM CDT PROTHROMBIN TIME (PT), P STAT 09/06/2024 8:30 PM CDT CBC WITHOUT DIFFERENTIAL, B STAT 09/06/2024 8:30 PM CDT BILIRUBIN DIRECT, S/P STAT 09/06/2024 8:30 PM CDT COMPREHENSIVE METABOLIC PANEL, S/P STAT 09/06/2024 8:30 PM CDT ECG Routine 09/06/2024 7:02 PM CDT documented in this encounter Results * (ABNORMAL) Glucose, POCT (09/09/2024 5:06 PM CDT) Glucose, POCT, B 198(H) 70 - 140 mg/dL 09/09/2024 5:09 PM CDT PCDE Site Capillary 09/09/2024 5:09 PM CDT PCDE Last Intake 3-4 hours 09/09/2024 5:09 PM CDT PCDE Blood 09/09/2024 5:06 PM CDT 09/09/2024 5:09 PM CDT us Unknown Provider LAB POCT ORDERABLES-MANUAL Lupe l Result [facility] [address] [place] [address], [facility] PCDE [facility] [address] [place] [address] * (ABNORMAL) Glucose, POCT (09/09/2024 9:56 AM CDT) Glucose, POCT, B 144(H) 70 - 140 mg/dL 09/09/2024 9:58 AM CDT PCDE Site Capillary 09/09/2024 9:58 AM CDT PCDE Last Intake > 4 hours 09/09/2024 9:58 AM CDT PCDE Blood 09/09/2024 9:56 AM CDT 09/09/2024 9:58 AM CDT us Unknown Provider LAB POCT ORDERABLES-MANUAL Lupe l Result Performing Organization Address City/[facility]/ZIP Co de Phone Number [facility] [address] [place] [address], [facility] PCDE [facility] [address] [place] [address] * (ABNORMAL) Glucose, POCT (09/09/2024 6:34 AM CDT) Glucose, POCT, B 382(H) 70 - 140 mg/dL 09/09/2024 6:45 AM CDT PCDE Last Intake 3-4 hours 09/09/2024 6:45 AM CDT PCDE Blood 09/09/2024 6:34 AM CDT 09/09/2024 6:46 AM CDT us Unknown Provider LAB POCT ORDERABLES-MANUAL Lupe l Result [facility] [address] [place] [address], [facility] PCDE [facility] [address] [place] [address] * (ABNORMAL) Tacrolimus, Trough (09/09/2024 5:36 AM CDT) Tacrolimus, Trough 4.2(L) 5.0-15.0 (Trough) ng/mL 09/09/2024 1:10 PM CDT [facility] Comment: ----ADDITIONAL INFORMATION---- Target steady-state trough concentrations vary depending on the type of transplant, concomitant immunosuppression, clinical/institutional protocols, and time post-transplant. Results should be interpreted in conjunction with this clinical information and any physical signs/symptoms of rejection/toxicity. Testing performed by Liquid Chromatography-Tandem Mass Spectrometry (LC-MS/MS). This test was developed and its performance characteristics determined by [facility] in a manner consistent with CLIA requirements. This test has not been cleared or approved by the U.S. Food and Drug Administration. Blood (Blood, Venous) 09/09/2024 5:36 AM CDT 09/09/2024 8:15 AM CDT Salima Garcia APRN, C.N.P., D.N.P. LAB BLOOD NON ADD-ON Final Result [facility] [address] [place] [address] [facility] [address] [place] [address] [place] [address] * (ABNORMAL) Hepatic Function Panel (09/09/2024 5:36 AM CDT) Bilirubin, Total, S 1.1 0.0 - 1.2 mg/dL 09/09/2024 6:26 AM CDT DTL Bilirubin, Direct, S 0.6(H) 0.0 - 0.3 mg/dL 09/09/2024 6:26 AM CDT DTL Aspartate Aminotransferase (AST), S 83(H) 8 - 43 U/L 09/09/2024 6:26 AM CDT DTL Alanine Aminotransferase (ALT), S 501(H) 7 - 45 U/L 09/09/2024 6:26 AM CDT DTL Alkaline Phosphatase, S 344(H) 35 - 104 U/L 09/09/2024 6:26 AM CDT DTL Albumin, S 3.9 3.5 - 5.0 g/dL 09/09/2024 6:26 AM CDT DTL Protein, Total, S 6.1(L) 6.3 - 7.9 g/dL 09/09/2024 6:26 AM CDT DTL Blood (Blood, Venous) 09/09/2024 5:36 AM CDT 09/09/2024 6:02 AM CDT Edgar Santillan, M.S. LAB BLOOD ADD-O N Final Result [facility] [address] [place] [address], [facility] DTL [facility] [address] [place] [address] * (ABNORMAL) CBC with Differential, Blood (09/09/2024 5:36 AM CDT) Hemoglobin 13.3 11.6 - 15.0 g/dL 09/09/2024 6:01 AM CDT DTL Hematocrit 39.1 35.5 - 44.9 % 09/09/2024 6:01 AM CDT DTL Erythrocytes 4.53 3.92 - 5.13 x10(12)/L 09/09/2024 6:01 AM CDT DTL MCV 86.3 78.2 - 97.9 fL 09/09/2024 6:01 AM CDT DTL RBC Distrib Width 11.9(L) 12.2 - 16.1 % 09/09/2024 6:01 AM CDT DTL Platelet Count 127(L) 157 - 371 x10(9)/L 09/09/2024 6:33 AM CDT DTL Leukocytes 5.3 3.4 - 9.6 x10(9)/L 09/09/2024 6:33 AM CDT DTL Neutrophils 4.65 1.56 - 6.45 x10(9)/L 09/09/2024 6:01 AM CDT DHPM Lymphocytes 0.35(L) 0.95 - 3.07 x10(9)/L 09/09/2024 6:01 AM CDT DTL Monocytes 0.25(L) 0.26 - 0.81 x10(9)/L 09/09/2024 6:01 AM CDT DTL Eosinophils <0.03 0.03 - 0.48 x10(9)/L 09/09/2024 6:01 AM CDT DTL Basophils <0.03 0.01 - 0.08 x10(9)/L 09/09/2024 6:01 AM CDT DTL Blood (Blood, Venous) 09/09/2024 5:36 AM CDT 09/09/2024 5:50 AM CDT Edgar Santana., M.S. LAB BLOOD ADD-O N Final Result [facility] [address] [place] [address], [facility] DTL [facility] [address] [place] [address] [facility] [address] [place] [address] * (ABNORMAL) Basic Metabolic Panel (09/09/2024 5:36 AM CDT) [facility] Potassium, S 3.8 3.6 - 5.2 mmol/L 09/09/2024 6:26 AM CDT DTL Sodium, S 138 135 - 145 mmol/L 09/09/2024 6:26 AM CDT DTL Chloride, S 102 98 - 107 mmol/L 09/09/2024 6:26 AM CDT DTL Bicarbonate, S 23 22 - 29 mmol/L 09/09/2024 6:26 AM CDT DTL Anion Gap 13 7 - 15 09/09/2024 6:26 AM CDT DTL BUN (Blood Urea Nitrogen), S 11 6 - 21 mg/dL 09/09/2024 6:26 AM CDT DTL Creatinine 0.71 0.59 - 1.04 mg/dL 09/09/2024 6:26 AM CDT DTL Estimated GFR (eGFR) >90 >=60 mL/min/BSA 09/09/2024 6:26 AM CDT DTL Comment: Estimated GFR calculated using the 2020 CKD_EPI creatinine equation. Calcium, Total, S 9.5 8.6 - 10.0 mg/dL 09/09/2024 6:26 AM CDT DTL Glucose, S 442(CH) 70 - 140 mg/dL 09/09/2024 6:26 AM CDT DTL Blood (Blood, Venous) 09/09/2024 5:36 AM CDT 09/09/2024 6:02 AM CDT Edgar Santillan, M.S. LAB BLOOD ADD-O N Final Result Performing Organization Address [facility] Co de Phone Number [facility] [address] DTL [facility] [address] [place] [address] * (ABNORMAL) Glucose, POCT (09/09/2024 1:52 AM CDT) Glucose, POCT, B 404(H) 70 - 140 mg/dL 09/09/2024 1:57 AM CDT PCDE Last Intake 3-4 hours 09/09/2024 1:57 AM CDT PCDE Blood 09/09/2024 1:52 AM CDT 09/09/2024 1:57 AM CDT us Unknown Provider LAB POCT ORDERABLES-MANUAL Lupe l Result Performing Organization Address [facility] de Phone Number [facility] [address] [place], [place] [phone] [place] [address] PCDE [facility] [address] [place] [address] * (ABNORMAL) Glucose, POCT (09/08/2024 11:42 PM CDT) Glucose, POCT, B 321(H) 70 - 140 mg/dL 09/08/2024 11:45 PM CDT PCDE Last Intake 3-4 hours 09/08/2024 11:45 PM CDT PCDE Blood 09/08/2024 11:4 2 PM CDT 09/08/2024 11:45 PM CDT Unknown Provider LAB POCT ORDERABLES-MANUAL Lupe l Result Performing Organization Address [facility]/ZIP Co de Phone Number [facility] [address] [place] [address], [facility] PCDE [facility] [address] [place] [address] * (ABNORMAL) Glucose, POCT (09/08/2024 8:07 PM CDT) Glucose, POCT, B 404(H) 70 - 140 mg/dL 09/08/2024 8:20 PM CDT PCDE Last Intake 3-4 hours 09/08/2024 8:20 PM CDT PCDE Blood 09/08/2024 8:07 PM CDT 09/08/2024 8:20 PM CDT us Unknown Provider LAB POCT ORDERABLES-MANUAL Lupe l Result Performing Organization Address [facility] Co de Phone Number [facility] [address] [place] [address], [facility] PCDE [facility]OC [address] [place] [address] * Glucose, POCT (09/08/2024 4:17 PM CDT) Glucose, POCT, B 109 70 - 140 mg/dL 09/08/2024 4:20 PM CDT PCDE Site Capillary 09/08/2024 4:20 PM CDT PCDE Last Intake 3-4 hours 09/08/2024 4:20 PM CDT PCDE Blood 09/08/2024 4:17 PM CDT 09/08/2024 4:20 PM CDT us Unknown Provider LAB POCT ORDERABLES-MANUAL Lupe l Result Performing Organization Address [facility]/ZIP Co de Phone Number [facility] [address] [place] [address], [facility] PCDE [facility] [address] [place] [address] * (ABNORMAL) Glucose, POCT (09/08/2024 12:13 PM CDT) Glucose, POCT, B 235(H) 70 - 140 mg/dL 09/08/2024 12:15 PM CDT PCDE Last Intake > 4 hours 09/08/2024 12:15 PM CDT PCDE Blood 09/08/2024 12:1 3 PM CDT 09/08/2024 12:15 PM CDT us Unknown Provider LAB POCT ORDERABLES-MANUAL Lupe l Result Performing Organization Address [facility] de Phone Number [facility] [address] [place] [address], [facility] PCDE [facility] [address] [place] [address] * (ABNORMAL) Glucose, POCT (09/08/2024 8:30 AM CDT) Glucose, POCT, B 333(H) 70 - 140 mg/dL 09/08/2024 8:32 AM CDT PCDE Last Intake > 4 hours 09/08/2024 8:32 AM CDT PCDE Blood 09/08/2024 8:30 AM CDT 09/08/2024 8:32 AM CDT us Unknown Provider LAB POCT ORDERABLES-MANUAL Lupe l Result Performing Organization Address [facility] de Phone Number [facility] [address] [place] [address], [facility] PCDE [facility] [address] [place] [address] * Tacrolimus, Trough (09/08/2024 5:04 AM CDT) Tacrolimus, Trough 5.0 5.0-15.0 (Trough) ng/mL 09/08/2024 11:49 AM CDT [facility] Comment: ----ADDITIONAL INFORMATION---- Target steady-state trough concentrations vary depending on the type of transplant, concomitant immunosuppression, clinical/institutional protocols, and time post-transplant. Results should be interpreted in conjunction with this clinical information and any physical signs/symptoms of rejection/toxicity. Testing performed by Liquid Chromatography-Tandem Mass Spectrometry (LC-MS/MS). This test was developed and its performance characteristics determined by [facility] in a manner consistent with CLIA requirements. This test has not been cleared or approved by the U.S. Food and Drug Administration. Blood (Blood, Venous) 09/08/2024 5:04 AM CDT 09/08/2024 7:24 AM CDT Salima Garcia APRN C.N.P., D.N.P. LAB BLOOD NON ADD-ON Final Result Performing Organization Address [facility] Co de Phone Number [facility] [address] [place] [address] [facility] [address] [place] [address] [place] [address] * (ABNORMAL) Hepatic Function Panel (09/08/2024 5:04 AM CDT) Pathologist [facility] Bilirubin, Total, S 1.5(H) 0.0 - 1.2 mg/dL 09/08/2024 6:01 AM CDT DTL Bilirubin, Direct, S 1.1(H) 0.0 - 0.3 mg/dL 09/08/2024 6:01 AM CDT DTL Aspartate Aminotransferase (AST), S 326(H) 8 - 43 U/L 09/08/2024 6:01 AM CDT DTL Alanine Aminotransferase (ALT), S 701(H) 7 - 45 U/L 09/08/2024 6:13 AM CDT DTL Alkaline Phosphatase, S 354(H) 35 - 104 U/L 09/08/2024 6:01 AM CDT DTL Albumin, S 3.9 3.5 - 5.0 g/dL 09/08/2024 6:01 AM CDT DTL Protein, Total, S 5.9(L) 6.3 - 7.9 g/dL 09/08/2024 6:01 AM CDT DTL Blood (Blood, Venous) 09/08/2024 5:04 AM CDT 09/08/2024 5:46 AM CDT Edgar Santana., M.S. LAB BLOOD ADD-O N Final Result Performing Organization Address [facility]/ZIP Co de Phone Number [facility] [address] [place] [address], [facility] DTL [facility] [address] [place] [address] * (ABNORMAL) CBC with Differential, Blood (09/08/2024 5:04 AM CDT) Hemoglobin 13.0 11.6 - 15.0 g/dL 09/08/2024 6:00 AM CDT DTL Hematocrit 37.9 35.5 - 44.9 % 09/08/2024 6:00 AM CDT DTL Erythrocytes 4.43 3.92 - 5.13 x10(12)/L 09/08/2024 6:00 AM CDT DTL MCV 85.6 78.2 - 97.9 fL 09/08/2024 6:00 AM CDT DTL RBC Distrib Width 11.9(L) 12.2 - 16.1 % 09/08/2024 6:00 AM CDT DTL Platelet Count 120(L) 157 - 371 x10(9)/L 09/08/2024 6:20 AM CDT DTL Leukocytes 5.2 3.4 - 9.6 x10(9)/L 09/08/2024 6:20 AM CDT DTL Neutrophils 5.04 1.56 - 6.45 x10(9)/L 09/08/2024 6:00 AM CDT [facility] Lymphocytes 0.07(L) 0.95 - 3.07 x10(9)/L 09/08/2024 6:00 AM CDT DTL Monocytes 0.11(L) 0.26 - 0.81 x10(9)/L 09/08/2024 6:00 AM CDT DTL Eosinophils <0.03 0.03 - 0.48 x10(9)/L 09/08/2024 6:00 AM CDT DTL Basophils <0.03 0.01 - 0.08 x10(9)/L 09/08/2024 6:00 AM CDT DTL Blood (Blood, Venous) 09/08/2024 5:04 AM CDT 09/08/2024 5:33 AM CDT us Edgar Santillan, M.S. LAB BLOOD ADD-O N Final Result [facility] [address] [place] [address], [place] DTL [facility] [address] [place] [address] [facility] [address] [place] [address] * (ABNORMAL) Basic Metabolic Panel (09/08/2024 5:04 AM CDT) [facility] Potassium, S 3.7 3.6 - 5.2 mmol/L 09/08/2024 6:01 AM CDT DTL Sodium, S 135 135 - 145 mmol/L 09/08/2024 6:01 AM CDT DTL Chloride, S 102 98 - 107 mmol/L 09/08/2024 6:01 AM CDT DTL Bicarbonate, S 22 22 - 29 mmol/L 09/08/2024 6:01 AM CDT DTL Anion Gap 11 7 - 15 09/08/2024 6:01 AM CDT DTL BUN (Blood Urea Nitrogen), S 14 6 - 21 mg/dL 09/08/2024 6:01 AM CDT DTL Creatinine 0.76 0.59 - 1.04 mg/dL 09/08/2024 6:01 AM CDT DTL Estimated GFR (eGFR) >90 >=60 mL/min/BSA 09/08/2024 6:01 AM CDT DTL Comment: Estimated GFR calculated using the 2020 CKD_EPI creatinine equation. Calcium, Total, S 8.8 8.6 - 10.0 mg/dL 09/08/2024 6:01 AM CDT DTL Glucose, S 349(H) 70 - 140 mg/dL 09/08/2024 6:01 AM CDT DTL Blood (Blood, Venous) 09/08/2024 5:04 AM CDT 09/08/2024 5:46 AM CDT Edgar Santillan, M.S. LAB BLOOD ADD-O N Final Result [facility] [address] [place] [address], [facility] DTL [facility] [address] [place] [address] * (ABNORMAL) Glucose, POCT (09/08/2024 3:06 AM CDT) Glucose, POCT, B 350(H) 70 - 140 mg/dL 09/08/2024 3:13 AM CDT PCDE Site Capillary 09/08/2024 3:13 AM CDT PCDE Last Intake 2-3 hours 09/08/2024 3:13 AM CDT PCDE Blood 09/08/2024 3:06 AM CDT 09/08/2024 3:14 AM CDT us Unknown Provider LAB POCT ORDERABLES-MANUAL Lupe l Result Performing Organization Address City/[facility]/ZIP Co de Phone Number [facility] [employer] [facility] [address] [place] [address], [facility] PCDE [facility] [address] [place] [address] * (ABNORMAL) Glucose, POCT (09/07/2024 11:24 PM CDT) Glucose, POCT, B 215(H) 70 - 140 mg/dL 09/07/2024 11:36 PM CDT PCDE Last Intake 3-4 hours 09/07/2024 11:36 PM CDT PCDE Blood 09/07/2024 11:2 4 PM CDT 09/07/2024 11:36 PM CDT us Unknown Provider LAB POCT ORDERABLES-MANUAL Lupe l Result [facility] [employer] [facility] [address] [place] [address], [facility] PCDE [facility] [address] [place] [address] * Glucose, POCT (09/07/2024 5:40 PM CDT) Glucose, POCT, B 117 70 - 140 mg/dL 09/07/2024 5:42 PM CDT PCDE Last Intake 2-3 hours 09/07/2024 5:42 PM CDT PCDE Blood 09/07/2024 5:40 PM CDT 09/07/2024 5:42 PM CDT us Unknown Provider LAB POCT ORDERABLES-MANUAL Lupe l Result Performing Organization Address City/[facility]/ZIP Co de Phone Number [facility] [address] [place] [address], [facility] PCDE [facility] [address] [place] [address] * (ABNORMAL) Glucose, POCT (09/07/2024 1:26 PM CDT) Glucose, POCT, B 280(H) 70 - 140 mg/dL 09/07/2024 1:30 PM CDT PCDE Site Capillary 09/07/2024 1:30 PM CDT PCDE Last Intake 2-3 hours 09/07/2024 1:30 PM CDT PCDE Blood 09/07/2024 1:26 PM CDT 09/07/2024 1:31 PM CDT us Unknown Provider LAB POCT ORDERABLES-MANUAL Lupe l Result Performing Organization Address [facility] Co de Phone Number [facility] [employer] [facility] [address] [place] [address], [facility] PCDE [facility] [address] [place] [address] * US Liver Transplant (09/07/2024 10:36 AM CDT) Anatomical Region Laterality Modality Abdomen, Ultrasound RST LOS, Ultrasound ARZ LOS, Ultrasound FLA LOS N/A Ultrasound Impressions 09/07/2024 10:42 AM CDT 1. Diffuse steatosis of the hepatic allograft, which appears at least moderate. 2. Patent allograft vasculature. Continued improvement in resistive indices. 3. Mild splenomegaly, slightly improved. Narrative 09/07/2024 10:42 AM CDT EXAM: US LIVER TRANSPLANT Exam performed with color and spectral Doppler analysis. COMPARISON: Ultrasound 08/22/2024. FINDINGS: Transplant date: 10/10/2022. Spleen: Splenomegaly. Length: 13.9 cm Aorta: Normal caliber. IVC: Normal where seen. Pancreas: Not seen well due to overlying bowel gas. Hepatic allograft: Diffuse increased echogenicity consistent with hepatic steatosis. Doppler Splenic, portal, and hepatic veins are patent with antegrade flow. The main hepatic artery is patent with antegrade flow. MHA peak systolic velocity: 63 cm/s MHA RI: 0.77 RHA RI: 0.75 LHA RI: 0.67 Resistive indices: Normal. Bile ducts: Not dilated where seen. Right kidney: Length: 11.6 cm. Normal echogenicity. No hydronephrosis. Left kidney: Length: 11.4 cm. Normal echogenicity. No hydronephrosis. Gallbladder: Absent. Other: No ascites. Procedure Note Marino Jara M.D., M.S. - 09/07/2024 EXAM: US LIVER TRANSPLANT Exam performed with color and spectral Doppler analysis. COMPARISON: Ultrasound 08/22/2024. FINDINGS: Transplant date: 10/10/2022. Spleen: Splenomegaly. Length: 13.9 cm Aorta: Normal caliber. IVC: Normal where seen. Pancreas: Not seen well due to overlying bowel gas. Hepatic allograft: Diffuse increased echogenicity consistent with hepaticsteatosis. Doppler Splenic, portal, and hepatic veins are patent with antegrade flow.The main hepatic artery is patent with antegrade flow. MHA peak systolic velocity: 63 cm/s MHA RI: 0.77 RHA RI: 0.75 LHA RI: 0.67 Resistive indices: Normal. Bile ducts: Not dilated where seen. Right kidney: Length: 11.6 cm. Normal echogenicity. No hydronephrosis. Left kidney: Length: 11.4 cm. Normal echogenicity. No hydronephrosis. Gallbladder: Absent. Other: No ascites. IMPRESSION: 1. Diffuse steatosis of the hepatic allograft, which appears at leastmoderate. 2. Patent allograft vasculature. Continued improvement in resistiveindices. 3. Mild splenomegaly, slightly improved. Edgar Santillan, M.S. IMG US PROCEDUR ES Final Result * (ABNORMAL) Glucose, POCT (09/07/2024 8:11 AM CDT) Glucose, POCT, B 398(H) 70 - 140 mg/dL 09/07/2024 8:13 AM CDT PCDE Site Capillary 09/07/2024 8:13 AM CDT PCDE Last Intake > 4 hours 09/07/2024 8:13 AM CDT PCDE Blood 09/07/2024 8:11 AM CDT 09/07/2024 8:13 AM CDT us Unknown Provider LAB POCT ORDERABLES-MANUAL Lupe l Result Performing Organization Address City/State/[facility] Co de Phone Number [facility] [address] [place] [address], [facility] PCDE [facility] POC [address] [place] [address] * (ABNORMAL) Hepatic Function Panel (09/07/2024 7:32 AM CDT) Bilirubin, Total, S 3.7(H) 0.0 - 1.2 mg/dL 09/07/2024 8:48 AM CDT DTL Bilirubin, Direct, S 2.9(H) 0.0 - 0.3 mg/dL 09/07/2024 8:48 AM CDT DTL Aspartate Aminotransferase (AST), S 612(H) 8 - 43 U/L 09/07/2024 8:48 AM CDT DTL Alanine Aminotransferase (ALT), S 1028(H) 7 - 45 U/L 09/07/2024 8:54 AM CDT DTL Alkaline Phosphatase, S 432(H) 35 - 104 U/L 09/07/2024 8:48 AM CDT DTL Albumin, S 4.5 3.5 - 5.0 g/dL 09/07/2024 8:48 AM CDT DTL Protein, Total, S 6.8 6.3 - 7.9 g/dL 09/07/2024 8:48 AM CDT DTL Blood (Blood, Venous) 09/07/2024 7:32 AM CDT 09/07/2024 8:01 AM CDT Salima Garcia APRN C.N.P., D.N.P. LAB BLOOD ADD-ON Final Result [facility] [address] [place] [address], [facility] DTL [facility] [address] [place] [address] * (ABNORMAL) Basic Metabolic Panel (09/07/2024 7:32 AM CDT) Pathologist [facility] Potassium, S 4.1 3.6 - 5.2 mmol/L 09/07/2024 8:48 AM CDT DTL Sodium, S 133(L) 135 - 145 mmol/L 09/07/2024 8:48 AM CDT DTL Chloride, S 95(L) 98 - 107 mmol/L 09/07/2024 8:48 AM CDT DTL Bicarbonate, S 21(L) 22 - 29 mmol/L 09/07/2024 8:48 AM CDT DTL Anion Gap 17(H) 7 - 15 09/07/2024 8:48 AM CDT DTL BUN (Blood Urea Nitrogen), S 12 6 - 21 mg/dL 09/07/2024 8:48 AM CDT DTL Creatinine 0.62 0.59 - 1.04 mg/dL 09/07/2024 8:48 AM CDT DTL Estimated GFR (eGFR) >90 >=60 mL/min/BSA 09/07/2024 8:48 AM CDT DTL Comment: Estimated GFR calculated using the 2020 CKD_EPI creatinine equation. Calcium, Total, S 9.4 8.6 - 10.0 mg/dL 09/07/2024 8:48 AM CDT DTL Glucose, S 439(CH) 70 - 140 mg/dL 09/07/2024 8:48 AM CDT DTL Blood (Blood, Venous) 09/07/2024 7:32 AM CDT 09/07/2024 8:01 AM CDT Katrin Tatum APRN.N.P., D.N.P. LAB BLOOD ADD-ON Final Result [facility] [address] [place] [address], [facility] DTL [facility] [address] [place] [address] * (ABNORMAL) CBC with Differential, Blood (09/07/2024 7:32 AM CDT) Hemoglobin 15.0 11.6 - 15.0 g/dL 09/07/2024 8:02 AM CDT DTL Hematocrit 45.3(H) 35.5 - 44.9 % 09/07/2024 8:02 AM CDT DTL Erythrocytes 5.19(H) 3.92 - 5.13 x10(12)/L 09/07/2024 8:02 AM CDT DTL MCV 87.3 78.2 - 97.9 fL 09/07/2024 8:02 AM CDT DTL RBC Distrib Width 11.6(L) 12.2 - 16.1 % 09/07/2024 8:02 AM CDT DTL Platelet Count 109(L) 157 - 371 x10(9)/L 09/07/2024 8:46 AM CDT DTL Leukocytes 8.7 3.4 - 9.6 x10(9)/L 09/07/2024 8:46 AM CDT DTL Neutrophils 8.44(H) 1.56 - 6.45 x10(9)/L 09/07/2024 8:02 AM CDT DHPM Lymphocytes 0.03(L) 0.95 - 3.07 x10(9)/L 09/07/2024 8:02 AM CDT DTL Monocytes 0.19(L) 0.26 - 0.81 x10(9)/L 09/07/2024 8:02 AM CDT DTL Eosinophils <0.03 0.03 - 0.48 x10(9)/L 09/07/2024 8:02 AM CDT DTL Basophils <0.03 0.01 - 0.08 x10(9)/L 09/07/2024 8:02 AM CDT DTL Blood (Blood, Venous) 09/07/2024 7:32 AM CDT 09/07/2024 7:42 AM CDT Katrin Tatum APRN.N.P., D.N.P. LAB BLOOD ADD-ON Final Result Performing Organization Address [facility] de Phone Number [facility] [address] [place] [address], [facility] DTL [facility] [address] [place] [address] [facility] [address] [place] [address] * (ABNORMAL) Tacrolimus, Trough (09/07/2024 7:32 AM CDT) [facility] Tacrolimus, Trough 3.9(L) 5.0-15.0 (Trough) ng/mL 09/07/2024 12:00 PM CDT [facility] Comment: ----ADDITIONAL INFORMATION---- Target steady-state trough concentrations vary depending on the type of transplant, concomitant immunosuppression, clinical/institutional protocols, and time post-transplant. Results should be interpreted in conjunction with this clinical information and any physical signs/symptoms of rejection/toxicity. Testing performed by Liquid Chromatography-Tandem Mass Spectrometry (LC-MS/MS). This test was developed and its performance characteristics determined by [facility] in a manner consistent with CLIA requirements. This test has not been cleared or approved by the U.S. Food and Drug Administration. Blood (Blood, Venous) 09/07/2024 7:32 AM CDT 09/07/2024 8:53 AM CDT Katrin Tatum APRN.N.P., D.N.P. LAB BLOOD NON ADD-ON Final Result Performing Organization Address City/[facility]/ZIP Co de Phone Number [facility] [address] [place] [address] [facility] [address] [place] [address] [place] [address] * (ABNORMAL) Glucose, POCT (09/06/2024 9:41 PM CDT) Glucose, POCT, B 220(H) 70 - 140 mg/dL 09/06/2024 9:44 PM CDT PCDE Last Intake 2-3 hours 09/06/2024 9:44 PM CDT PCDE Blood 09/06/2024 9:41 PM CDT 09/06/2024 9:45 PM CDT Unknown Provider LAB POCT ORDERABLES-MANUAL Lupe l Result Performing Organization Address [facility] Co de Phone Number [facility] [address] [place], [place] [id number] [place] [address] PCDE [facility] [address] [place] [address] * Prothrombin Time (PT) (09/06/2024 8:30 PM CDT) Prothrombin Time, P 10.9 9.4 - 12.5 sec 09/06/2024 8:44 PM CDT [facility] INR 1.0 0.9 - 1.1 09/06/2024 8:44 PM CDT [facility] Comment: ----ADDITIONAL INFORMATION---- Standard intensity warfarin therapeutic range: 2.0 to 3.0 High intensity warfarin therapeutic range: 2.5 to 3.5 Blood (Blood, Venous) 09/06/2024 8:30 PM CDT 09/06/2024 8:37 PM CDT Ben Redmond APRN, C.N.P., D.N.P. LAB BLOOD A DD-ON Final Result Performing Organization Address City/[facility] Co de Phone Number [facility] [address] [place] [address], [facility] METH [facility] [address] [place] [address] * (ABNORMAL) Bilirubin, Direct (09/06/2024 8:30 PM CDT) Bilirubin, Direct, P 2.7(H) 0.0 - 0.3 mg/dL 09/06/2024 10:05 PM CDT DTL Blood (Blood, Venous) 09/06/2024 8:30 PM CDT 09/06/2024 8:58 PM CDT Ben Redmond APRN, Katrin.N.P., D.N.P. LAB BLOOD A DD-ON Final Result Performing Organization Address [facility] Co de Phone Number [facility] [address] [place] [address], [facility] DTL [facility] [address] [place] [address] * (ABNORMAL) CBC without Differential (09/06/2024 8:30 PM CDT) [facility] Hemoglobin 15.2(H) 11.6 - 15.0 g/dL 09/06/2024 8:39 PM CDT [facility] Hematocrit 43.6 35.5 - 44.9 % 09/06/2024 8:39 PM CDT [facility] Erythrocytes 5.12 3.92 - 5.13 x10(12)/L 09/06/2024 8:39 PM CDT [facility] MCV 85.2 78.2 - 97.9 fL 09/06/2024 8:39 PM CDT [facility] RBC Distrib Width 11.7(L) 12.2 - 16.1 % 09/06/2024 8:39 PM CDT [facility] Platelet Count 195 157 - 371 x10(9)/L 09/06/2024 8:39 PM CDT [facility] Leukocytes 6.4 3.4 - 9.6 x10(9)/L 09/06/2024 8:39 PM CDT [facility] Blood (Blood, Venous) 09/06/2024 8:30 PM CDT 09/06/2024 8:37 PM CDT us Ben Redmond APRN, Katrin.N.P., D.N.P. LAB BLOOD A DD-ON Final Result Performing Organization Address City/[facility]/ZIP Co de Phone Number [facility] [address] [place] [address], [facility] METH [facility] [address] [place] [address] * (ABNORMAL) Comprehensive Metabolic Panel (09/06/2024 8:30 PM CDT) Potassium, S 3.4(L) 3.6 - 5.2 mmol/L 09/06/2024 9:12 PM CDT DTL Sodium, S 132(L) 135 - 145 mmol/L 09/06/2024 9:12 PM CDT DTL Chloride, S 91(L) 98 - 107 mmol/L 09/06/2024 9:12 PM CDT DTL Bicarbonate, S 25 22 - 29 mmol/L 09/06/2024 9:12 PM CDT DTL Anion Gap 16(H) 7 - 15 09/06/2024 9:12 PM CDT DTL BUN (Blood Urea Nitrogen), S 12 6 - 21 mg/dL 09/06/2024 9:12 PM CDT DTL Creatinine 0.62 0.59 - 1.04 mg/dL 09/06/2024 9:12 PM CDT DTL Estimated GFR (eGFR) >90 >=60 mL/min/BS A 09/06/2024 9:12 PM CDT DTL Comment: Estimated GFR calculated using the 2020 CKD_EPI creatinine equation. Calcium, Total, S 9.4 8.6 - 10.0 mg/dL 09/06/2024 9:12 PM CDT DTL Glucose, S 208(H) 70 - 140 mg/dL 09/06/2024 9:12 PM CDT DTL Protein, Total, S 6.8 6.3 - 7.9 g/dL 09/06/2024 9:12 PM CDT DTL Albumin, S 4.4 3.5 - 5.0 g/dL 09/06/2024 9:12 PM CDT DTL Aspartate Aminotransferase (AST), S 745(H) 8 - 43 U/L 09/06/2024 9:24 PM CDT DTL Alkaline Phosphatase, S 405(H) 35 - 104 U/L 09/06/2024 9:12 PM CDT DTL Alanine Aminotransferase (ALT), S 1089(H) 7 - 45 U/L 09/06/2024 9:24 PM CDT DTL Bilirubin, Total, S 3.8(H) 0.0 - 1.2 mg/dL 09/06/2024 9:12 PM CDT DTL Blood (Blood, Venous) 09/06/2024 8:30 PM CDT 09/06/2024 8:57 PM CDT Result [facility] Katrin Gay APRN.N.P., D.N.P. LAB BLOOD A DD-ON Final Result Performing Organization Address [facility] de Phone Number [facility] [address] [place] [address], [facility] DTL [facility] [address] [place] [address] * ECG 12 Lead (09/06/2024 7:02 PM CDT) Ventricular Rate ECG/Min 98 BPM MUSE DC Interval 148 ms MUSE QRSD Interval 82 ms MUSE QT Interval 350 ms MUSE QTC Interval 446 ms MUSE P [place] 20 degrees MUSE R [place] 218 degrees MUSE T Wave [place] 39 degrees MUSE 09/06/2024 7:02 PM CDT 09/06/2024 7:07 PM CDT Impressions MUSE - 09/06/2024 7:07 PM CDT Normal sinus rhythm Right superior axis deviation Nonspecific ST and T wave abnormality When compared with ECG of 21-Aug-2024 18:44, No significant change was found Reviewed by STERLING Vaca Narrative Procedure Note Silvestre Pisano M.D. - 09/06/2024 IMPRESSION: Normal sinus rhythm Right superior axis deviation Nonspecific ST and T wave abnormality When compared with ECG of 21-Aug-2024 18:44, No significant change was found Reviewed by STERLING Vaca Katrin Gay APRN.N.P., D.N.P. ECG ORDERAB LES Final Result Performing Organization Address [facility] Co de Phone Number MUSE NA documented in this encounter Visit Diagnoses Diagnosis Rejection Liver Transplant (HCC)- Primary Rejection Graft Acute Transplant Liver (HCC) Nausea Medication Therapy Fdc Not 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 Rejection Liver Transplant (HCC) Pain Abdominal Chronic Diabetes Mellitus Due To Underlying Condition With Ketoacidosis Without Coma (HCC) Diabetes Mellitus Type 2 Without Complication (HCC) documented in this encounter Admitting Diagnoses Diagnosis Rejection Liver Transplant (HCC) documented in this encounter Administered Medications Inactive Administered Medications - up to 3 most recent administrations Medication Order MAR Action Action Date Dose Rate Site acetaminophen tablet 500 mg (TylenoL) 500 mg, oral, Every 6 hours PRN, mild pain or score 1-3 of 10, fever, Starting on Wed09/06/24 at 1845, First line option. Not to exceed 2 grams in a 24 hour period. Given 09/09/2024 4:19 PM CDT 500 mg Given 09/07/2024 12:23 PM CDT 500 mg acetaminophen tablet 650 mg (TylenoL) 650 mg, oral, Once, On Wed09/06/24 at 2000, For 1 dose, prior to Thymoglobulin; Premeds should be administered 30 minutes prior to anti-thymocyte globulin (rabbit) (Thymoglobulin). Give on Day 1. Given 09/06/2024 10:13 PM CDT 650 mg acetaminophen tablet 650 mg (TylenoL) 650 mg, oral, Daily, First dose on Wed09/07/24 at 1730, For 2 doses, prior to Thymoglobulin; Premeds should be administered 30 minutes prior to anti-thymocyte globulin (rabbit) (Thymoglobulin) Give on Day 2 and 3. Given 09/08/2024 4:26 PM CDT 650 mg Given 09/07/2024 9:26 PM CDT 650 mg albuterol nebulizer solution 2.5 mg 2.5 mg, nebulization, Once, On Wed09/07/24 at 1145, For 1 dose, Give immediately prior to pentamidine inhalation Given 09/07/2024 11:20 AM CDT 2.5 mg anti-thymocyte globulin rabbit 75 mg, hydrocortisone sodium succinate (PF) 12.5 mg, heparin (porcine) 500 Units in NaCl 0.9% 265.75 mL IVPB (Thymoglobulin) 75 mg (rounded from 68.55 mg = 1.5 mg/kg 45.7 kg [place] weight), intravenous, at 44.3 mL/hr, Administer over 6 Hours, Once, On Wed09/06/24 at 2100, For 1 dose, Give on Day 1. DO NOT SHAKE. Use 0.2 or 0.22 micron filter. Final product contains approximately 2 units/mL heparin and 0.05 mg/mL hydrocortisone. Peripheral or central line administration New Bag 09/06/2024 11:23 PM CDT 75 mg 44.3 mL/hr anti-thymocyte globulin rabbit 75 mg, hydrocortisone sodium succinate (PF) 12.5 mg, heparin (porcine) 500 Units in NaCl 0.9% 265.75 mL IVPB (Thymoglobulin) 75 mg (rounded from 68.55 mg = 1.5 mg/kg 45.7 kg [place] weight), intravenous, at 44.3 mL/hr, Administer over 6 Hours, Daily, First dose on Wed09/07/24 at 1800, For 2 doses, Give on Day 2 and 3 DO NOT SHAKE. Use 0.2 or 0.22 micron filter. Final product contains approximately 2 units/mL heparin and 0.05 mg/mL hydrocortisone. Peripheral or central line administration New Bag 09/08/2024 5:10 PM CDT 75 mg 4 4.3 mL/hr New Bag 09/07/2024 10:20 PM CDT 75 mg 44.3 mL/hr camphor-menthoL 0.5-0.5 % lotion 1 Application (Sarna) 1 Application, topical, 3 times daily PRN, itching, Starting on Wed09/07/24 at 1607 Given 09/08/2024 3:48 PM CDT 1 Application cholecalciferol (vitamin D3) tablet 50 mcg 50 mcg, oral, Daily, First dose on Wed09/07/24 at 0900, cholecalciferol (vitamin D3) orderable was interchanged for cholecalciferol (vitamin D3) tablet/capsule Given 09/09/2024 8:33 AM CDT 50 mcg Given 09/08/2024 8:25 AM CDT 50 mcg Given 09/07/2024 9:26 AM CDT 50 mcg cholestyramine 4 gram packet 1 packet (Prevalite) 1 packet, oral, 2 times daily PRN, itching, Starting on Wed09/06/24 at 2100, Mix one 4 gram packet in 60 mL water then administer ordered dose. Administer other oral medications at least 1 hour before or 4 to 6 hours after cholestyramine, due to the potential to bind to orally administered drugs. Given 09/07/2024 11:49 AM CDT 1 packet diphenhydrAMINE capsule 25 mg (BenadryL) 25 mg, oral, Once, On Wed09/06/24 at 2000, For 1 dose, prior to Thymoglobulin; Premeds should be administered 30 minutes prior to anti-thymocyte globulin (rabbit) (Thymoglobulin). Give on Day 1. Given 09/06/2024 10:13 PM CDT 25 mg diphenhydrAMINE capsule 25 mg (BenadryL) 25 mg, oral, Daily, First dose on Luz Marina 09/07/24 at 1730, For 2 doses, prior to Thymoglobulin; Premeds should be administered 30 minutes prior to anti-thymocyte globulin (rabbit) (Thymoglobulin) Give on Day 2 and 3. Given 09/08/2024 4:27 PM CDT 25 mg Given 09/07/2024 9:26 PM CDT 25 mg diphenhydrAMINE capsule 25 mg (BenadryL) 25 mg, oral, Once, On Wed09/07/24 at 0230, For 1 dose Given 09/07/2024 3:15 AM CDT 25 mg HYDROmorphone tablet 2 mg (Dilaudid) 2 mg, oral, Every 6 hours PRN, severe pain or score 7-10 of 10, moderate pain or score 4-6 of 10, Starting on Wed09/06/24 at 1845, Does patient have renal impairment, frailty, or advanced age (avoid morphine) and unable to take oxycodone? Yes, Did the patient fail other oral opioids during hospitalization? Yes, Does the patient have documented allergies to oxycodone and/or morphine? No, Is the patient on hydromorphone chronically for pain? Yes, Indications: Chronic Pain/Nonacute PainIndications:Chronic Pain/Nonacute Pain Given 09/09/2024 4:19 PM CDT 2 mg Given 09/09/2024 9:44 AM CDT 2 mg Given 09/09/2024 1:05 AM CDT 2 mg hydrOXYzine tablet 25 mg (Atarax) 25 mg, oral, Once, On Luz Marina 09/07/24 at 1615, For 1 dose Given 09/07/2024 6:23 PM CDT 25 mg insulin aspart U-100 (Carbohydrate Count) injection 0-20 Units (NovoLOG FlexPen) 0-20 Units, subcutaneous, 3 times daily with meals, First dose on Luz Marina 09/07/24 at 0800, Simple or Complex Ratio: Simple, Carb Ratio - Simple (1 unit per __ grams of carbohydrates): 8 Given 09/07/2024 3:26 PM CDT 10 Units Left Upper Arm (Back ) Given 09/07/2024 10:02 AM CDT 10 Units L eft Upper Arm (Back) insulin aspart U-100 (Carbohydrate Count) injection 0-20 Units (NovoLOG FlexPen) 0-20 Units, subcutaneous, As needed, other, use to cover snacks, Starting on 09/09/24 at 0723, Simple or Complex Ratio: Simple, Carb Ratio - Simple (1 unit per __ grams of carbohydrates): 8 insulin aspart U-100 (Carbohydrate Count) injection 0-40 Units (NovoLOG FlexPen) 0-40 Units, subcutaneous, 3 times daily with meals, First dose (after last modification) on Wed09/08/24 at 0815, Simple or Complex Ratio: Simple, Carb Ratio - Simple (1 unit per __ grams of carbohydrates): 6 Given 09/09/2024 10:52 AM CDT 5 Units Right Upper Arm (Linnette k) Given 09/08/2024 8:14 PM CDT 5 Units Ri ght Upper Arm (Back) Given 09/08/2024 5:11 PM CDT 4 Units Le ft Upper Arm (Back) insulin aspart U-100 injection 0-13 Units (NovoLOG FlexPen) 0-13 Units, subcutaneous, 3 times daily, First dose on Luz Marina 09/07/24 at 0800, Insulin Scale: Moderate Correction Scale, 140 - 179: 2 units, 180 - 219: 4 units, 220 - 259: 6 units, 260 - 299: 8 units, 300 - 339: 10 units, 340 - 379: 12 units, 380 - 399: 13 units, Greater than 399: Call service writing Insulin orders Given 09/09/2024 5:14 PM CDT 4 Units Left Upper Arm (Back ) Given 09/09/2024 1:54 PM CDT 2 Units Le ft Lower Abdomen Given 09/09/2024 6:40 AM CDT 13 Units Le ft Upper Arm (Back) insulin aspart U-100 injection 0-7 Units (NovoLOG FlexPen) 0-7 Units, subcutaneous, Daily at bedtime, First dose on Wed09/07/24 at 2100, Insulin Scale: Modified Bedtime Correction Scale, 220-259: 3 units, 260-299: 4 units, 300-339: 5 units, 340-379: 6 units, 380-399: 7 units, Greater than 399: Call service writing insulin orders Given 09/08/2024 8:12 PM CDT 7 Units Right Upper Arm (Linnette k) insulin aspart U-100 injection 0-7 Units (NovoLOG FlexPen) 0-7 Units, subcutaneous, Every 24 hours, First dose on Wed09/08/24 at 0200, Insulin Scale: Mild Correction Scale, 180 - 219: 2 units, 220 - 259: 3 units, 260 - 299: 4 units, 300 - 339: 5 units, 340 - 379: 6 units, 380 - 399: 7 units, Greater than 399: Call service writing Insulin orders Given 09/09/2024 2:26 AM CDT 7 Units Right Upper Arm (Linnette k) Given 09/08/2024 3:09 AM CDT 6 Units Ri ght Upper Arm (Back) insulin aspart U-100 injection 16 Units (NovoLOG FlexPen) 16 Units, subcutaneous, Once, On Wed09/07/24 at 0930, For 1 dose, AM correction: give now for AM and start correction scale at noon. DCS Given 09/07/2024 10:03 AM CDT 16 Units Left Upper Arm (Back ) insulin glargine injection 8 Units 8 Units, subcutaneous, 2 times daily, First dose on Wed09/06/24 at 2100 Given 09/09/2024 8:34 AM CDT 8 Units Left Lower Abdomen Given 09/08/2024 8:14 PM CDT 8 Units Ri ght Upper Arm (Back) Given 09/08/2024 8:29 AM CDT 8 Units Ri ght Upper Arm (Back) lidocaine 5 % 1 patch (Lidoderm) 1 patch, transdermal, Administer over 12 Hours, Daily PRN, pain, Starting on Wed09/06/24 at 2100, Apply to intact skin for a maximum of 12 hours in a 24-hour period. Medication Applied 09/07/2024 12:23 PM CDT 1 patch Flank yofcwx-alblcsnx-afinybv 12,000-38,000-60,[address] capsule 24,000 Units of lipase (Creon) 24,000 Units of lipase, oral, 3 times daily with meals, First dose on Wed09/07/24 at 0800, Do NOT crush or chew. Capsule may be opened and the contents taken without crushing or chewing. Given 09/09/2024 5:14 PM CDT 24,000 Units of lipase Given 09/09/2024 12:49 PM CDT 24,000 Units of lipase Given 09/09/2024 8:33 AM CDT 24,000 Units of lipase methylPREDNISolone sod succinate (PF) 250 mg in NaCl 0.9% IVPB 250 mg, intravenous, at 108 mL/hr, Administer over 30 Minutes, Once, On Wed09/06/24 at 2000, For 1 dose, Give before 1st dose of antithymocyte globulin (rabbit) (Thymoglobulin) New Bag 09/06/2024 10:12 PM CDT 250 mg 108 mL/hr mirtazapine tablet 15 mg (Remeron) 15 mg, oral, Daily at bedtime, First dose on Wed09/06/24 at 2100 Given 09/08/2024 8:28 PM CDT 15 mg Given 09/07/2024 8:14 PM CDT 15 mg Given 09/06/2024 8:47 PM CDT 15 mg agvffswzerko-hemx-RA-Ca-minerals 400 mcg (folic acid) tablet 1 tablet 1 tablet, oral, Daily, First dose on Wed09/07/24 at 0900 Given 09/09/2024 8:33 AM CDT 1 tablet Given 09/08/2024 8:25 AM CDT 1 tablet Given 09/07/2024 9:25 AM CDT 1 tablet ondansetron (PF) injection 4 mg (Zofran) 4 mg, intravenous, Every 8 hours PRN, nausea, vomiting, Starting on Wed09/06/24 at 1845, If nausea/vomiting does not improve in 30 minutes post ondansetron administration then administer promethazine. Notify service if nausea symptoms persists. Given 09/07/2024 8:42 AM CDT 4 mg Given 09/06/2024 8:46 PM CDT 4 mg ondansetron ODT disintegrating tablet 8 mg (Zofran-ODT) 8 mg, oral, 2 times daily, First dose on Wed09/07/24 at 1930, 30 minutes before tacrolimus dose When splitting ODT at bedside, handle with gloves and a pill splitter to prevent moisture contact. Given 09/09/2024 6:40 AM CDT 8 mg Given 09/08/2024 7:52 PM CDT 8 mg Given 09/08/2024 7:49 AM CDT [address] tablet 40 mg (Protonix) 40 mg, oral, Daily before morning meal, First dose on Wed09/07/24 at 0700, Swallow whole. Do NOT crush, chew, or split tablet. Given 09/09/2024 6:39 AM CDT 40 mg Given 09/08/2024 7:49 AM CDT 40 mg Given 09/07/2024 6:31 AM CDT 40 mg pentamidine nebulizer solution (Nebupent) 300 mg (Nebupent) 300 mg, inhalation, Once, On Wed09/07/24 at 1200, For 1 dose, Respiratory Therapy to Administer Requires Respirgard II nebulizer If dispensed as powder vial, reconstitute each 300 mg vial with 6 mL SWFI to a final concentration of 50 mg/mL, using an 18 gauge needle. For INHALATION only. Protect from light, Indications: Prophylaxis, medicalIndications:Prophylaxis, medical Given 09/07/2024 12:35 PM CDT 300 mg predniSONE tablet 30 mg (Deltasone) 30 mg, oral, Daily, First dose on Wed09/07/24 at 1730, For 2 doses, Give on Day 2 and 3 before dose of thymoglobulin. Given 09/08/2024 4:25 PM CDT 30 mg Given 09/07/2024 9:26 PM CDT 30 mg predniSONE tablet 5 mg (Deltasone) 5 mg, oral, Daily, First dose on Wed09/07/24 at 0900 Given 09/09/2024 8:34 AM CDT 5 mg Given 09/08/2024 8:25 AM CDT 5 mg Given 09/07/2024 9:25 AM CDT 5 mg pregabalin capsule 75 mg (Lyrica) 75 mg, oral, 2 times daily, First dose on Wed09/06/24 at 2100 Given 09/09/2024 8:34 AM CDT 75 mg Given 09/08/2024 8:28 PM CDT 75 mg Given 09/08/2024 8:26 AM CDT 75 mg prochlorperazine tablet 10 mg (Compazine) 10 mg, oral, Every 6 hours PRN, nausea, vomiting, Starting on Wed09/06/24 at 1845 Given 09/09/2024 9:44 AM CDT 10 mg Given 09/08/2024 12:18 PM CDT 10 mg Given 09/08/2024 3:07 AM CDT 10 mg sodium chloride 0.9 % injection 3 mL 3 mL, intravenous, Every 12 hours scheduled, First dose on Wed09/06/24 at 2100, Peripheral Intravenous Catheter and Rapid Infusion Catheter, when no infusion to maintain patency Given 09/09/2024 8: 34 AM CDT 3 mL Given 09/08/2024 8:28 PM CDT 3 mL Given 09/08/2024 8:29 AM CDT 3 mL tacrolimus capsule 2 mg (Prograf) 2 mg, sublingual, Every morning, First dose on Wed09/07/24 at 0800, Indications: prevention of liver transplant rejectionIndications:prevention of liver transplant rejection Given 09/07/2024 9:25 AM CDT 2 mg tacrolimus capsule 2 mg (Prograf) 2 mg, sublingual, Every evening, First dose on Wed09/06/24 at 2000, Indications: prevention of liver transplant rejectionIndications:prevention of liver transplant rejection Given 09/06/2024 8:47 PM CDT 2 mg tacrolimus capsule 3 mg (Prograf) 3 mg, oral, 2 times daily - immunosuppression, First dose on Wed09/07/24 at 2000, Swallow whole, do NOT open capsules. If capsules are opened, patient should perform this action Given 09/09/2024 8:33 AM CDT 3 mg Given 09/08/2024 8:28 PM CDT 3 mg Given 09/08/2024 8:25 AM CDT 3 mg valGANciclovir tablet 900 mg (Valcyte) 900 mg, oral, Daily with morning meal, First dose on Wed09/07/24 at 0800, For 90 days, Swallow whole. Do NOT crush, chew, or split tablet., Drug Monitoring Program: Pharmacist to adjust medication dosing based on indication and drug clearance factors., Indications: Prophylaxis, medicalIndications:Prophylaxis, medical Given 09/09/2024 8:33 AM CDT 900 mg Given 09/08/2024 8:25 AM CDT 900 mg Given 09/07/2024 9:25 AM CDT 900 mg documented in this encounter Active and Recently Administered Medications Times are shown in CDT. Scheduled Medication Order 09/07/2024 09/08/2024 09/09/2024 acetaminophen tablet 650 mg (TylenoL) (COMPLETED) 650 mg, oral, Daily, First dose on Luz Marina 09/07/24 at 1730, For 2 doses, prior to Thymoglobulin; Premeds should be administered 30 minutes prior to anti-thymocyte globulin (rabbit) (Thymoglobulin) Give on Day 2 and 3. 2125 (Given - Provider: Hilda Berumen RSumaNSuma) 1626 (Given - Provider: Isabel Kuhn R.N.) albuterol nebulizer solution 2.5 mg (COMPLETED) 2.5 mg, nebulization, Once, On Luz Marina 09/07/24 at 1145, For 1 dose, Give immediately prior to pentamidine inhalation 1120 (Given - Provider: Sofy Raymundo RGabby) anti-thymocyte globulin rabbit 75 mg, hydrocortisone sodium succinate (PF) 12.5 mg, heparin (porcine) 500 Units in NaCl 0.9% 265.75 mL IVPB (Thymoglobulin) (COMPLETED) 75 mg (rounded from 68.55 mg = 1.5 mg/kg 45.7 kg [place] weight), intravenous, at 44.3 mL/hr, Administer over 6 Hours, Daily, First dose on Luz Marina 09/07/24 at 1800, For 2 doses, Give on Day 2 and 3 DO NOT SHAKE. Use 0.2 or 0.22 micron filter. Final product contains approximately 2 units/mL heparin and 0.05 mg/mL hydrocortisone. Peripheral or central line administration 2220 (New Bag - Provider: Michelle Jj R.N.) 1710 (New Bag - Provider: Isabel Kuhn R.N.) cholecalciferol (vitamin D3) tablet 50 mcg 50 mcg, oral, Daily, First dose on Luz Marina 09/07/24 at 0900, cholecalciferol (vitamin D3) orderable was interchanged for cholecalciferol (vitamin D3) tablet/capsule 09 (Given - Provider: Sofy Raymundo R.N.) 0825 (Given - Provider: Isabel Kuhn R.N.) 0833 (Given - Provider: Cornelia Garvey R.N.) diclofenac sodium 1 % gel 2 g (Voltaren) 2 g, topical, 4 times daily, First dose on Wed09/06/24 at 2100, Do not exceed 32 g per day, over all affected joints. Use dosing card to measure product. 2 g = 2.25 inches, 4 gm = 4.5 inches. Rinse dosing card after use and save for each administration. 0930 (Not Given - Provider: Sofy Raymundo R.N. - Reason: Patient/family refused)1143 (Not Given - Provider: Sofy Raymundo R.N. - Reason: Patient/family refused)1818 (Not Given - Provider: Sofy Raymundo R.N. - Reason: Patient/family refused)2128 (Not Given - Provider: Hilda Berumen R.N. - Reason: Patient/family refused) 0834 (Not Given - Provider: Isabel Kuhn R.N. - Reason: Patient/family refused)1110 (Not Given - Provider: Isabel Kuhn R.N. - Reason: Patient/family refused)1630 (Not Given - Provider: Isabel Kuhn RSumaNSuma - Reason: Patient/family refused)2031 (Not Given - Provider: Whit Gonzalez R.N. - Reason: Patient/family refused) 0845 (Not Given - Provider: Cornelia Garvey R.N. - Reason: Patient/family refused)1246 (Not Given - Provider: Cornelia Garvey R.N. - Reason: Patient/family refused)1700 (Due) diphenhydrAMINE capsule 25 mg (BenadryL) (COMPLETED) 25 mg, oral, Daily, First dose on Wed09/07/24 at 1730, For 2 doses, prior to Thymoglobulin; Premeds should be administered 30 minutes prior to anti-thymocyte globulin (rabbit) (Thymoglobulin) Give on Day 2 and 3. 2125 (Given - Provider: Hilda Berumen R.N.) 1627 (Given - Provider: Andrew SiddiqiNSuma)1718 (Not Given - Provider: Isabel Kuhn R.N. - Reason: Other) diphenhydrAMINE capsule 25 mg (BenadryL) (COMPLETED) 25 mg, oral, Once, On Wed09/07/24 at 0230, For 1 dose 0315 (Given - Provider: Hilda Berumen R.N.) hydrOXYzine tablet 25 mg (Atarax) (COMPLETED) 25 mg, oral, Once, On Wed09/07/24 at 1615, For 1 dose 1823 (Given - Provider: Sofy Raymundo R.N.) insulin aspart U-100 (Carbohydrate Count) injection 0-20 Units (NovoLOG FlexPen) (CANCELED) 0-20 Units, subcutaneous, 3 times daily with meals, First dose on Wed09/07/24 at 0800, Simple or Complex Ratio: Simple, Carb Ratio - Simple (1 unit per __ grams of carbohydrates): 8 1002 (Given - Provider: Sofy Raymundo R.N.)1526 (Given - Provider: Sofy Raymundo R.N.)1700 (Canceled Entry - Provider: Whit Gonzalez R.N. - Comment: did not eat) insulin aspart U-100 (Carbohydrate Count) injection 0-40 Units (NovoLOG FlexPen) 0-40 Units, subcutaneous, 3 times daily with meals, First dose (after last modification) on Wed09/08/24 at 0815, Simple or Complex Ratio: Simple, Carb Ratio - Simple (1 unit per __ grams of carbohydrates): 6 1109 (Not Given - Provider: Isabel Kuhn R.N. - Reason: Other - Comment: skipped breakfast)1323 (Given - Provider: Isabel Kuhn RSumaNSuma)1711 (Given - Provider: Andrew SiddiqiNSuma)2014 (Given - Provider: Whit Gonzalez R.N.) 1052 (Given - Provider: Minal Heard R.N.)1402 (Not Given - Provider: Cornelia L Senne, R.N. - Reason: Order parameters not met - Comment: patient vomited entire meal)1700 (Due) insulin aspart U-100 injection 0-13 Units (NovoLOG FlexPen) 0-13 Units, subcutaneous, 3 times daily, First dose on Wed09/07/24 at 0800, Insulin Scale: Moderate Correction Scale, 140 - 179: 2 units, 180 - 219: 4 units, 220 - 259: 6 units, 260 - 299: 8 units, 300 - 339: 10 units, 340 - 379: 12 units, 380 - 399: 13 units, Greater than 399: Call service writing Insulin orders 1009 (Not Given - Provider: Sofy Raymundo RSumaN. - Reason: Order parameters not met)1527 (Given - Provider: Sofy Raymundo R.N.)1819 (Not Given - Provider: Vanessa Mayen.N. - Reason: Order parameters not met) 0835 (Given - Provider: Isabel Kuhn R.N.)1220 (Given - Provider: Isabel Kuhn R.N.)1619 (Not Given - Provider: Isabel Kuhn R.N. - Reason: Order parameters not met)2013 (Canceled Entry - Provider: Whit Gonzalez RGabby) 0640 (Given - Provider: Whit Gonzalez REric.)1354 (Given - Provider: Cornelia Garvey R.N.)1714 (Given - Provider: Chelsy Doss R.N.) insulin aspart U-100 injection 0-7 Units (NovoLOG FlexPen) 0-7 Units, subcutaneous, Daily at bedtime, First dose on Wed09/07/24 at 2100, Insulin Scale: Modified Bedtime Correction Scale, 220-259: 3 units, 260-299: 4 units, 300-339: 5 units, 340-379: 6 units, 380-399: 7 units, Greater than 399: Call service writing insulin orders 2326 (Not Given - Provider: Whit Gonzalez RGabby - Reason: Order parameters not met) 2011 (Given - Provider: Whit Gonzalez RSumaNSuma) insulin aspart U-100 injection 0-7 Units (NovoLOG FlexPen) 0-7 Units, subcutaneous, Every 24 hours, First dose on Wed09/08/24 at 0200, Insulin Scale: Mild Correction Scale, 180 - 219: 2 units, 220 - 259: 3 units, 260 - 299: 4 units, 300 - 339: 5 units, 340 - 379: 6 units, 380 - 399: 7 units, Greater than 399: Call service writing Insulin orders 0309 (Given - Provider: Hilda Berumen R.N.) 0226 (Given - Provider: Whit Gonzalez R.N.) insulin aspart U-100 injection 16 Units (NovoLOG FlexPen) (COMPLETED) 16 Units, subcutaneous, Once, On Wed09/07/24 at 0930, For 1 dose, AM correction: give now for AM and start correction scale at noon. DCS 1003 (Given - Provider: Sofy Raymundo R.N.) insulin glargine injection 8 Units 8 Units, subcutaneous, 2 times daily, First dose on Wed09/06/24 at 2100 1005 (Given - Provider: Sofy Raymundo R.N.)2325 (Given - Provider: Whit Gonzalez R.N.) 0829 (Given - Provider: Isabel Kuhn R.N.)2013 (Given - Provider: Whit Gonzalez R.N.) 0834 (Given - Provider: Cornelia Garvey R.N.) ajnots-wjmuczel-uarxjuq 12,000-38,000-60,[address] capsule 24,000 Units of lipase (Creon) 24,000 Units of lipase, oral, 3 times daily with meals, First dose on Wed09/07/24 at 0800, Do NOT crush or chew. Capsule may be opened and the contents taken without crushing or chewing. 0925 (Given - Provider: Sofy Raymundo R.N.)1526 (Given - Provider: Sofy Raymundo REric.)1823 (Given - Provider: Sofy Raymundo RSumaN.) 1110 (Not Given - Provider: Isabel Kuhn, R.N. - Reason: Other - Comment: Skipped breakfast)1220 (Given - Provider: Isabel Kuhn, R.N.)1625 (Given - Provider: Isabel Kuhn R.N.) 0833 (Given - Provider: Cornelia Garvey R.N.)1249 (Given - Provider: Ruma Marroquin RSumaNSuma)171 (Given - Provider: Andrew HawkinsNSuma) mirtazapine tablet 15 mg (Remeron) 15 mg, oral, Daily at bedtime, First dose on Wed09/06/24 at 2100 2013 (Given - Provider: Michelle Jj RSumaNSuma) 2027 (Given - Provider: Whit Gonzalez R.N.) wqwmpdwoknsp-udyv-MH-Ca-m inerals 400 mcg (folic acid) tablet 1 tablet 1 tablet, oral, Daily, First dose on Wed09/07/24 at 0900 0925 (Given - Provider: Sofy Raymundo R.N.) 0825 (Given - Provider: Isabel Kuhn R.N.) 0833 (Given - Provider: Cornelia Garvey R.N.) ondansetron ODT disintegrating tablet 8 mg (Zofran-ODT) 8 mg, oral, 2 times daily, First dose on Wed09/07/24 at 1930, 30 minutes before tacrolimus dose When splitting ODT at bedside, handle with gloves and a pill splitter to prevent moisture contact. 1941 (Given - Provider: Hilda Berumen R.N.) 0749 (Given - Provider: Isabel Kuhn R.N.)1951 (Given - Provider: Whit Gonzalez R.N.) 0640 (Given - Provider: Whit Gonzalez R.N.) pantoprazole DR tablet 40 mg (Protonix) 40 mg, oral, Daily before morning meal, First dose on Wed09/07/24 at 0700, Swallow whole. Do NOT crush, chew, or split tablet. 0631 (Given - Provider: Hilda Berumen R.N.) 0749 (Given - Provider: Isabel Kuhn R.N.) 0639 (Given - Provider: Whit Gonzalez R.N.) pentamidine nebulizer solution (Nebupent) 300 mg (Nebupent) (COMPLETED) 300 mg, inhalation, Once, On Luz Marina 09/07/24 at 1200, For 1 dose, Respiratory Therapy to Administer Requires Respirgard II nebulizer If dispensed as powder vial, reconstitute each 300 mg vial with 6 mL SWFI to a final concentration of 50 mg/mL, using an 18 gauge needle. For INHALATION only. Protect from light, Indications: Prophylaxis, medical 1235 (Given - Provider: Loc العراقي, R.R.T., C.R.T., L.R.T.) predniSONE tablet 30 mg (Deltasone) (COMPLETED) 30 mg, oral, Daily, First dose on Luz Marina 09/07/24 at 1730, For 2 doses, Give on Day 2 and 3 before dose of thymoglobulin. 2125 (Given - Provider: Hilda Berumen R.N.) 162 (Given - Provider: Isabel Kuhn R.N.) predniSONE tablet 5 mg (Deltasone) 5 mg, oral, Daily, First dose on Luz Marina 09/07/24 at 0900 0925 (Given - Provider: Sofy Raymundo R.N.) 08 (Given - Provider: Isabel Kuhn R.N.) 0834 (Given - Provider: Cornelia Garvey R.N.) pregabalin capsule 75 mg (Lyrica) 75 mg, oral, 2 times daily, First dose on Wed09/06/24 at 2100 0925 (Given - Provider: Sofy Raymundo R.N.)2013 (Given - Provider: Michelle Jj R.N.) 08 (Given - Provider: Isabel Kuhn R.N.)2027 (Given - Provider: Whit Gonzalez R.N.) 0834 (Given - Provider: Cornelia Garvey R.N.) sodium chloride 0.9 % injection 3 mL 3 mL, intravenous, Every 12 hours scheduled, First dose on Wed09/06/24 at 2100, Peripheral Intravenous Catheter and Rapid Infusion Catheter, when no infusion to maintain patency 09 (Given - Provider: Sofy Raymundo R.N.)2126 (Given - Provider: Hilda Berumen R.N.) 0829 (Given - Provider: Isabel Kuhn R.N.)2027 (Given - Provider: Whit Gonzalez R.N.) 0834 (Given - Provider: Cornelia Garvey R.N.) tacrolimus capsule 2 mg (Prograf) (CANCELED)(Linked Group 1) 2 mg, sublingual, Every morning, First dose on Luz Marina 09/07/24 at 0800, Indications: prevention of liver transplant rejection 924 (Given - Provider: Sofy Raymundo R.N.) tacrolimus capsule 3 mg (Prograf) 3 mg, oral, 2 times daily - immunosuppression, First dose on Luz Marina 09/07/24 at 2000, Swallow whole, do NOT open capsules. If capsules are opened, patient should perform this action 2013 (Given - Provider: Michelle Jj R.N.) 824 (Given - Provider: Isabel Kuhn R.N.)2027 (Given - Provider: Whit Gonzalez R.N.) 0833 (Given - Provider: Cornelia Garvey R.N.) valGANciclovir tablet 900 mg (Valcyte) 900 mg, oral, Daily with morning meal, First dose on Luz Marina 09/07/24 at 0800, For 90 days, Swallow whole. Do NOT crush, chew, or split tablet., Drug Monitoring Program: Pharmacist to adjust medication dosing based on indication and drug clearance factors., Indications: Prophylaxis, medical 924 (Given - Provider: Sofy Raymundo R.N.) 824 (Given - Provider: Isabel Kuhn R.N.) 0833 (Given - Provider: Cornelia Garvey R.N.) PRN Medication Order 09/07/2024 09/08/2024 09/09/2024 acetaminophen tablet 325 mg (TylenoL) 325 mg, oral, As needed, other, once as needed per infusion - anti-thymocyte globulin (rabbit) (Thymoglobulin) infusion related reaction (rigors, tremors, shortness of breath), Starting on Wed09/06/24 at 1845, For 7 days acetaminophen tablet 500 mg (TylenoL) 500 mg, oral, Every 6 hours PRN, mild pain or score 1-3 of 10, fever, Starting on Wed09/06/24 at 1845, First line option. Not to exceed 2 grams in a 24 hour period. 1223 (Given - Provider: Sofy Raymundo R.N.) 1619 (Given - Provider: Ruma Marroquin R.N.) bisacodyL suppository 10 mg (Dulcolax) 10 mg, rectal, Daily PRN, constipation, if no bowel movement within 48 hours of admission, Starting on Wed09/06/24 at 1845, Ordered sequence of administration: sennosides-docusate sodium tablet then polyethylene glycol then bisacodyl calcium carbonate chewable tablet 200 mg of calcium (Tums) 200 mg of calcium, oral, Every 4 hours PRN, heartburn, indigestion, for dyspepsia, Starting on Wed09/06/24 at 184, Doses listed are in mg of elemental calcium. Take with food. 500 mg calcium carbonate contains 200 mg of elemental calcium. camphor-menthoL 0.5-0.5 % lotion 1 Application (Sarna) 1 Application, topical, 3 times daily PRN, itching, Starting on Wed09/07/24 at 1607 1548 (Given - Provider: Isabel Kuhn RSumaNSuma) cholestyramine 4 gram packet 1 packet (Prevalite) 1 packet, oral, 2 times daily PRN, itching, Starting on Wed09/06/24 at 2100, Mix one 4 gram packet in 60 mL water then administer ordered dose. Administer other oral medications at least 1 hour before or 4 to 6 hours after cholestyramine, due to the potential to bind to orally administered drugs. 1149 (Given - Provider: Sofy Raymundo R.N.) diphenhydrAMINE injection 25 mg (BenadryL) 25 mg, intravenous, As needed, other, once as needed per infusion - anti-thymocyte globulin (rabbit) (Thymoglobulin) infusion related reaction (rigors, tremors, shortness of breath), Starting on Wed09/06/24 at 1845, For 7 days hydrocortisone sodium succinate (PF) injection 100 mg (Solu-Cortef) 100 mg, intravenous, As needed, once as needed per infusion - anti-thymocyte globulin (rabbit) (Thymoglobulin) infusion related reaction (rigors, tremors, shortness of breath), Starting on Wed09/06/24 at 1845, For 7 days, IV push over 30 seconds per 100 mg (For doses 500 mg or less) HYDROmorphone tablet 2 mg (Dilaudid) 2 mg, oral, Every 6 hours PRN, severe pain or score 7-10 of 10, moderate pain or score 4-6 of 10, Starting on Wed09/06/24 at 1845, Does patient have renal impairment, frailty, or advanced age (avoid morphine) and unable to take oxycodone? Yes, Did the patient fail other oral opioids during hospitalization? Yes, Does the patient have documented allergies to oxycodone and/or morphine? No, Is the patient on hydromorphone chronically for pain? Yes, Indications: Chronic Pain/Nonacute Pain 0636 (Given - Provider: Hilda Berumen R.N.)1223 (Given - Provider: Sofy Raymundo R.N.)1942 (Given - Provider: Hilda Berumen R.N.) 0307 (Given - Provider: Hilda Berumen R.N.)1248 (Given - Provider: Chelsy Doss R.N.)1848 (Given - Provider: Isabel Kuhn RSumaNSuma) 0105 (Given - Provider: Whit Gonzalez R.N.)0944 (Given - Provider: Chelsy Doss RSumaNSuma)1619 (Given - Provider: Ruma Marroquin RSumaNSuma) insulin aspart U-100 (Carbohydrate Count) injection 0-20 Units (NovoLOG FlexPen) 0-20 Units, subcutaneous, As needed, other, use to cover snacks, Starting on Wed09/09/24 at 0723, Simple or Complex Ratio: Simple, Carb Ratio - Simple (1 unit per __ grams of carbohydrates): 8 lidocaine 5 % 1 patch (Lidoderm) 1 patch, transdermal, Administer over 12 Hours, Daily PRN, pain, Starting on Wed09/06/24 at 2100, Apply to intact skin for a maximum of 12 hours in a 24-hour period. 1223 (Medication Applied - Provider: Sofy Raymundo R.N.)2330 (Medication Removed - Provider: Whit M Carlos, R.N.) meclizine tablet 25 mg (Antivert) 25 mg, oral, 3 times daily PRN, dizziness, Starting on Wed09/06/24 at 1845 methocarbamoL tablet 750 mg (Robaxin) 750 mg, oral, 2 times daily PRN, muscle spasms, Starting on Wed09/06/24 at 1933 ondansetron (PF) injection 4 mg (Zofran) (CANCELED) 4 mg, intravenous, Every 8 hours PRN, nausea, vomiting, Starting on Wed09/06/24 at 1845, If nausea/vomiting does not improve in 30 minutes post ondansetron administration then administer promethazine. Notify service if nausea symptoms persists. 0842 (Given - Provider: Sofy Raymundo RSumaNSuma) polyethylene glycol powder packet 17 g (Miralax) 17 g, oral, Daily PRN, constipation, Starting on Wed09/06/24 at 1845, Ordered sequence of administration: sennosides-docusate sodium tablet then polyethylene glycol then bisacodyl Avoid mixing with starch-based thickened liquids. prochlorperazine tablet 10 mg (Compazine) 10 mg, oral, Every 6 hours PRN, nausea, vomiting, Starting on Wed09/06/24 at 1845 0636 (Given - Provider: Hilda Berumen RSumaN.) 0307 (Given - Provider: Hilda Berumen R.N.)1218 (Given - Provider: Isabel Kuhn R.N.) 0834 (Return to Cabinet - Provider: Cornelia Garvey RSumaN.)0944 (Given - Provider: Chelsy Doss RSumaN.) promethazine injection 6.25 mg (Phenergan) 6.25 mg, intravenous, Every 6 hours PRN, nausea, vomiting, Starting on Wed09/06/24 at 1845, Administer ondansetron prior to promethazine. Do not administer promethazine in the setting of sedation or confusion. sennosides-docusate sodium 8.6-50 mg per tablet 1 tablet (Senokot-S) 1 tablet, oral, 2 times daily PRN, constipation, Starting on Wed09/06/24 at 1845, Ordered sequence of administration: sennosides-docusate sodium tablet then polyethylene glycol then bisacodyl simethicone chewable tablet 80 mg 80 mg, oral, Every 4 hours PRN, flatulence, Starting on Wed09/06/24 at 1845 sodium chloride 0.9 % injection 10 mL 10 mL, intravenous, As needed, line care, Starting on Wed09/06/24 at 1845, Peripheral Intravenous Catheter and Rapid Infusion Catheter, prior to blood sampling, post blood transfusion or post blood sampling sodium chloride 0.9 % injection 3 mL 3 mL, intravenous, As needed, line care, Starting on Wed09/06/24 at 1845, Prior to and following infusion and between multiple consecutive infusions: sodium chloride 0.9 % injection traZODone tablet 150 mg (DesyreL) 150 mg, oral, Bedtime PRN, sleep, Starting on Wed09/06/24 at 2100 Linked Groups Order Group 1: tacrolimus capsule 2 mg (Prograf) (CANCELED)Jump to med 2 mg, sublingual, Every morning, First dose on Luz Marina 09/07/24 at 0800, Indications: prevention of liver transplant rejection And tacrolimus capsule 2 mg (Prograf) (CANCELED) 2 mg, sublingual, Every evening, First dose on Wed09/06/24 at 2000, Indications: prevention of liver transplant rejection documented in this encounter Additional Health Concerns Infection Onset Date Last Indicated Resolved Time Protective Environment 10/10/2022 10/10/2022 Assessment Noted Time PHQ-9 Depression Total Score: 4 08/12/19 25 3:31 PM CDT documented as of this encounter 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 [address] [place] [phone] PCP - General Internal Medicine 12/01/21 [facility] 08/25/21 documented as of this encounter
--- OUTSIDE RECORDS SUMMARY | 2024-09-11 14:15 | XMS_ITS | Encounter Summary ---
Author Organization [facility] Address [address] [place] [address] Care Team Providers Care Fish Net Maker Name Role Phone Ana Red P.A.-C. Primary Care Pro vider Reason for Visit * Episode Based Medications (Routine) - Closed Specialty Diagnoses / Procedures Referred By Meir t Referred To Contact Diagnoses Rejection Graft Acute Procedures [place] ANTITHYMOCYTE GLOBULN RABBIT Edgar Montgomery M.B.B.S., M.S. [address] [place] [phone] Phone: tel: fax: Edgar Montgomery M.Karan.B.S., M.S. [address] [place] [phone] Phone: tel: fax: Referral ID Status Reason Start Date Expiration Date Visits Re quested Visits Authorized [id number] Closed 09/11/2024 05/02/2025 12 12 Encounter Details Date Type Department Care Team (Late st Contact Info) Description 09/11/2024 2:15 PM CDT Infusion Department of Infusion Therapy in [place], [place] [address] [place] [phone] Edgar Montgomery M.B.B.S., M.S. [address] [place] [phone] Rejection Graft Acute (Primary Dx); Swelling Arm; Rejection Liver Transplant (HCC); Abdominal Pain Discharge Disposition: Home or Self Care Social History Tobacco Use Types Packs/Day Years Used Date Smoking Tobacco: Former Cigarettes 1 - 10/12/2021 Passive Smoke Exposure: Never Smokeless Tobacco: Never Comments:Smoked cigarettes f rom age 18-30 about Alcohol Use Standard Drinks/Week Comments Never 0 (1 standard drink = 0.6 oz pure alcohol) Havent had any alcohol in about a year or so. [facility] [employer] Answer Date Recorded In the past 12 months has e Profound, gas, oil, or water Is [employer] threatened to shut off services in your [...] How often do you attend chur or confucianist services? Patient declined 02/10/2022 Do you belong to any clubs o r organizations such as hinduism groups, unions, fraternal [...] Answer Date Recorded PHQ-2 Score 0 08/11/2024 [facility] [place] [facility] Occupat ional Health - Occupational Stress [...] Answer Date Recorded Employment status Temporarily disabled 4 Housing Stability Answer Date Recorded What is your living situation today? I have a [facility] place to live 09/09/2024 Education Answer Date Recorded What is the highest level of school you have completed or the highest degree you have received? Associate degree: occupational, technical, or vocational program 07/16/2021 Comments No Sex and Gender Information Value Date Recorded Sex Assigned at Female 04/12/2021 7:39 PM [employer]ODUCTION INTERNS[employer] Legal Sex Female 7:53 PM [employer]ODUCTION INTERNS[employer]IP Gender Identity Female 04/12/2021 7:39 PM [employer]ODUCTION INTERNS[employer] Sexual Orientation Straight 04/12/2021 7: 39 PM PRODUCTION INTERNSHIP documented as of this encounter Last Filed Vital Signs Vital Sign Reading Time Taken Comments Blood Pressure 124/74 09/11/2024 7:26 PM CDT Pulse 93 09/11/2024 7:26 PM CDT Temperature 37.1 C (98.8 F) 09/11/2024 7:26 PM CDT Respiratory Rate 15 09/11/2024 7:26 PM CDT Oxygen Saturation - - Inhaled Oxygen Concentration - - Weight - - Height - - Body Mass Index - - documented in this encounter Progress Notes * Sandoval Diaz R.N. - 09/11/2024 2:15 PM CDT Catia Brunson here in PSYCH[facility]ATRIC for Thymoglobulin infusion today 09/11/24. Upon baseline assessment the patient reported pain rated 7/10 and up to 10/10 if touched as well as redness/swelling on RUE near old PIV site. The patient had received doses of Thymoglobulin while admitted last week per medicalrecord.The patient reports staff recommended elevation and to monitor site post discharge. Photo consent was obtained and photos of R arm was taken and uploaded to record. The patient's skin was outlined with skin marker to help keep track of redness and swelling. Dr. Michelle Luz was contacted for recommendation. Dr. Luz gave okay to proceed with Thymoglobulin today d/t patient denying other symptoms of allergic reaction. Dr. Luz also ordered labs to be drawn while patient here in PSYCHIATRIC. Labs were collected and infusion was started. Dr. Luz reported that she would contact the outpatient team for follow up and to schedule a ultrasound for this week . The nurse informed the patient of the providersrecommendation and was agreeable to the plan. The patient was instructed to go to ED if symptoms worsen before appointment with team. documented in this encounter Nursing Notes * Aidee Pulido R.N., CRNI - 09/11/2024 9:05 PM CDT Only received 88.4 ml of Thymoglobulin due to pain in left forearm IV site (IV was patent with goodblood return) Pt declined a new IV. Heat and slower rates were tried but did not help. IV Methylprednisolone was given per order and also did not help with the pain with infusion. Service ok'd to stop Thymo for tonight and RN coordinator will follow-up with patient tomorrow for further plans for future infusions. documented in this encounter Plan of Treatment Upcoming Encounters Date Type Department Care Team (Latest Contact Info) Description 10/05/2024 9:30 AM CDT Appointment Department of Radiology, [facility], in [address] [phone] Marisabel Carpenter APRN, C.N.P., D.N.P. [address] [place] [phone] 10/05/2024 12:00 PM CDT Appointment Division of Pulmonary Medicine in [address] [phone] Edgar Montgomery M.B.B.S., M.S. [address] [place] [phone] 10/05/2024 2:45 PM CDT Infusion Department of Infusion Therapy in [address] [phone] Noreen Ansari P.A.-C., M.S. [address] [place] [address] 10/10/2024 7:50 AM CDT Lab Department of Laboratory Medicine and Pathology, [facility] in [place], [place] [address] [place] [address] Marisabel Carpenter APRN, C.N.P., D.N.P. [address] [place] [phone] 10/10/2024 8:00 AM CDT Lab Department of Laboratory Medicine and Pathology, [facility] in [place], [place] [address] [place] [address] Marisabel Carpenter APRN, C.N.PSuma, D.N.P. [address] [place] [phone] 10/10/2024 8:30 AM CDT Nurse Only Ramirez diaz [facility] in [place], [place] [address] [place] [address] Marisabel Carpenter APRN, C.N.P., D.N.P. [address] [place] [phone] 10/10/2024 9:20 AM CDT Appointment Department of Radiology, [place], [place] [address] [place] [address] Marisabel Carpenter APRN, C.N.P., D.N.P. [address] [place] [phone] 10/10/2024 9:45 AM CDT Appointment Department of Laboratory Medicine and Pathology, [facility] in [place], [place] [address] [place] [address] Marisabel Carpenter APRN, C.N.P., D.N.P. [address] [place] [phone] 10/10/2024 1:30 PM CDT Appointment Department of Radiology, [facility] in [place], [place] [address] [place] [address] Marisabel Carpenter APRN, C.N.P., D.N.P. [address] [place] [phone] Discharge Disposition: Home or Self Care 10/10/2024 2:45 PM CDT Appointment Department of Radiology, [facility] in [place], [place] [address] [place] [address] Marisabel Carpenter APRN, C.N.P., D.N.P. [address] [place] [phone] 10/11/2024 8:00 AM CDT [facility] in [place], [place] [address] [place] [address] Marisabel Carpenter APRN, C.N.P., D.N.P. [address] [place] [phone] 10/11/2024 11:00 AM CDT Comprehensive Visit [facility] Transplantation and Clinical Regeneration in [place], [place] [address] [place] [address] Sree Devlin M.D. [address] [place] [phone] 10/11/2024 1:00 PM CDT Comprehensive Visit Department of Otorhinolaryngology in [place], [place] [address] [place] [address] Randal Urbano P.A.-Katrin., M.S. [address] [place] [phone] 10/11/2024 2:00 PM CDT Office Visit [facility] for Trans[facility] and Clinical Regeneration in [place], [place] [address] [place] [phone] Hiro Murillo P.A.-C. [address] [place] [phone] 10/11/2024 4:00 PM CDT Comprehensive Visit Department of Dermatology in [place], [place] [address] [place] [phone] Parul Martinez M.D. [address] [place] [phone] 10/12/2024 8:00 AM CDT Telemedicine [facility] Transplantation and Clinical Regeneration in [place], [place] [address] [place] [address] Ervin Mckeon D.O. [address] [place] [phone] 11/01/2024 2:15 PM CDT Appointment Division of Pulmonary Medicine in [place], [place] [address] [place] [phone] Edgar Montgomery M.B.B.S., M.S. [address] [place] [phone] documented as of this encounter Procedures Procedure Name Priority Date/Time Associated Diagnosis Comments BACTERIA / INES CULTURE, BLOOD Routine 09/11/2024 4:48 PM CDT Swelling Arm Rejection Liver Transplant (HCC) HEPATIC FUNCTION PANEL, S Routine 09/11/2024 4:47 PM CDT Swelling Arm Rejection Liver Transplant (HCC) BASIC METABOLIC PANEL, S/P Routine 09/11/2024 4:47 PM CDT Swelling Arm Rejection Liver Transplant (HCC) CBC WITH DIFFERENTIAL, B Routine 09/11/2024 4:46 PM CDT Swelling Arm Rejection Liver Transplant (HCC) BACTERIA / INES CULTURE, BLOOD Routine 09/11/2024 4:45 PM CDT Swelling Arm Rejection Liver Transplant (HCC) documented in this encounter Results * Bacteria / Ines Culture, Blood #2 (09/11/2024 4:48 PM CDT) Pathologist [facility] Bacteria/Adriana da Culture, Blood No growth after 5 days of incubation. 09/16/2024 6:02 PM CDT DTL Blood (Blood, Peripheral Draw) 09/11/2024 4:48 PM CDT 09/11/2024 5:08 PM CDT Comment:Specimen Source Site : Blood Narrative [facility] - 09/16/2024 6:02 PM CDT Received Bactec aerobic and Bactec anaerobic bottles Michelle Luz M.D., M.S. LAB MICROBIOLOGY - GENERAL ORDERABLES Final Result [facility] [address] [place] [address], [facility] [address] [place] [address] * (ABNORMAL) Basic Metabolic Panel (09/11/2024 4:47 PM CDT) Pathologist [facility] Potassium, S 3.2(L) 3.6 - 5.2 mmol/L 09/11/2024 5:32 PM CDT DTL Sodium, S 138 135 - 145 mmol/L 09/11/2024 5:32 PM CDT DTL Chloride, S 102 98 - 107 mmol/L 09/11/2024 5:32 PM CDT DTL Bicarbonate, S 24 22 - 29 mmol/L 09/11/2024 5:32 PM CDT DTL Anion Gap 12 7 - 15 09/11/2024 5:32 PM CDT DTL BUN (Blood Urea Nitrogen), S 6 6 - 21 mg/dL 09/11/2024 5:32 PM CDT DTL Creatinine 0.44(L) 0.59 - 1.04 mg/dL 09/11/2024 5:32 PM CDT DTL Estimated GFR (eGFR) >90 >=60 mL/min/BSA 09/11/2024 5:32 PM CDT DTL Comment: Estimated GFR calculated using the 2020 CKD_EPI creatinine equation. Calcium, Total, S 8.8 8.6 - 10.0 mg/dL 09/11/2024 5:32 PM CDT DTL Glucose, S 291(H) 70 - 140 mg/dL 09/11/2024 5:32 PM CDT DTL Blood (Blood, Venous) 09/11/2024 4:47 PM CDT 09/11/2024 5:15 PM CDT us Michelle Luz M.D., M.S. LAB BLOOD ADD-ON Final Res ult [place] [address] [place] [address], [facility] [address] [place] [address] * (ABNORMAL) Hepatic Function Panel (09/11/2024 4:47 PM CDT) Bilirubin, Total, S 1.3(H) 0.0 - 1.2 mg/dL 09/11/2024 5:32 PM CDT DTL Bilirubin, Direct, S 0.6(H) 0.0 - 0.3 mg/dL 09/11/2024 5:32 PM CDT DTL Aspartate Aminotransferase (AST), S 95(H) 8 - 43 U/L 09/11/2024 5:32 PM CDT DTL Alanine Aminotransferase (ALT), S 324(H) 7 - 45 U/L 09/11/2024 5:32 PM CDT DTL Alkaline Phosphatase, S 336(H) 35 - 104 U/L 09/11/2024 5:32 PM CDT DTL Albumin, S 3.8 3.5 - 5.0 g/dL 09/11/2024 5:32 PM CDT DTL Protein, Total, S 5.8(L) 6.3 - 7.9 g/dL 09/11/2024 5:32 PM CDT DTL Blood (Blood, Venous) 09/11/2024 4:47 PM CDT 09/11/2024 5:15 PM CDT us Michelle Luz M.D., M.S. LAB BLOOD ADD-ON Final Res ult [place] [address] [place] [address], [facility] [place] [address] [place] [address] * (ABNORMAL) CBC with Differential, Blood (09/11/2024 4:46 PM CDT) Pathologist [facility] Hemoglobin 12.1 11.6 - 15.0 g/dL 09/11/2024 5:10 PM CDT DTL Hematocrit 35.5 35.5 - 44.9 % 09/11/2024 5:10 PM CDT DTL Erythrocytes 4.19 3.92 - 5.13 x10(12)/L 09/11/2024 5:10 PM CDT DTL MCV 84.7 78.2 - 97.9 fL 09/11/2024 5:10 PM CDT DTL RBC Distrib Width 11.6(L) 12.2 - 16.1 % 09/11/2024 5:10 PM CDT DTL Platelet Count 136(L) 157 - 371 x10(9)/L 09/11/2024 5:34 PM CDT DTL Leukocytes 6.1 3.4 - 9.6 x10(9)/L 09/11/2024 5:34 PM CDT DTL Neutrophils 5.36 1.56 - 6.45 x10(9)/L 09/11/2024 5:10 PM CDT DH[facility] Lymphocytes 0.52(L) 0.95 - 3.07 x10(9)/L 09/11/2024 5:10 PM CDT DTL Monocytes 0.18(L) 0.26 - 0.81 x10(9)/L 09/11/2024 5:10 PM CDT DTL Eosinophils 0.03 0.03 - 0.48 x10(9)/L 09/11/2024 5:10 PM CDT DTL Basophils <0.03 0.01 - 0.08 x10(9)/L 09/11/2024 5:10 PM CDT DTL Blood (Blood, Venous) 09/11/2024 4:46 PM CDT 09/11/2024 5:01 PM CDT Michelle Luz M.D., M.S. LAB BLOOD ADD-ON Final Res ult Performing Organization Address [facility] Co de Phone Number [facility] [address] [place] [address] * Bacteria / Ines Culture, Blood #1 (09/11/2024 4:45 PM CDT) Bacteria/Adriana da Culture, Blood No growth after 5 days of incubation. 09/16/2024 6:02 PM CDT DTL Blood (Blood, Peripheral Draw) 09/11/2024 4:45 PM CDT 09/11/2024 5:08 PM CDT Comment:Specimen Source Site : Blood Michelle Luz M.D., M.S. LAB MICROBIOLOGY - GENERAL ORDERABLES Final Result Performing Organization Address [facility]/ZIP Co de Phone Number [facility] [address] [place] [address] documented in this encounter Visit Diagnoses Diagnosis Rejection Graft Acute- Primary Swelling Arm Rejection Liver Transplant (HCC) Abdominal Pain documented in this encounter Administered Medications Inactive Administered Medications - up to 3 most recent administrations Medication Order MAR Action Action Date Dose Rate Site acetaminophen tablet 650 mg (TylenoL) 650 mg, oral, Once, On Wed09/11/24 at 1515, For 1 dose, Prior to each dose of anti-thymocyte globulinIndications:Rejection Graft Acute Given 09/11/2024 3:03 PM CDT 650 mg anti-thymocyte globulin rabbit 75 mg, hydrocortisone sodium succinate (PF) 12.5 mg, heparin (porcine) 500 Units in NaCl 0.9% 265.75 mL IVPB (Thymoglobulin) 75 mg (rounded from 68.55 mg = 1.5 mg/kg 45.7 kg Ernul weight), intravenous, at 66.4 mL/hr, Administer over 4 Hours, Once, On Wed09/11/24 at 1530, For 1 dose, DO NOT SHAKE. Use 0.2 or 0.22 micron filter. Final product contains approximately 2 units/mL heparin and 0.05 mg/mL hydrocortisone. Peripheral or central line administrationIndications:Re jection Graft Acute Restarted 09/11/2024 8:15 PM CDT 66.4 mL/hr Rate/Dose Change 09/11/2024 6:41 PM CDT 20 mL/h r Rate/Dose Change 09/11/2024 5:45 PM CDT 45 mL/h r diphenhydrAMINE capsule 25 mg (BenadryL) 25 mg, oral, Once, On Wed09/11/24 at 1515, For 1 dose, Prior to each dose of anti-thymocyte globulinIndications:Rejection Graft Acute Given 09/11/2024 3:03 PM CDT 25 mg methylPREDNISolone sod succinate (PF) injection 100 mg (SOLU-MedroL) 100 mg, intravenous, Once, On Wed09/11/24 at 2030, For 1 dose, Activate vial to a final concentration of 62.5 mg/mLIndications:Rejection Graft Acute Given 09/11/2024 8:09 PM CDT 100 m g methylPREDNISolone sod succinate (PF) injection 125 mg (SOLU-MedroL) 125 mg, intravenous, Once, On Wed09/11/24 at 1515, For 1 dose, Prior to each dose of anti-thymocyte globulin Activate vial to a final concentration of 62.5 mg/mLIndications:Rejection Graft Acute Given 09/11/2024 3:12 PM CDT 125 m g sodium chloride 0.9 % injection 3 mL 3 mL, intravenous, As needed, line care, Starting on 09/11/24 at 1544, Prior to and following infusion and between multiple consecutive infusions.Indications:Abdominal Pain Given 09/11/2024 8:09 PM CDT 3 mL Given 09/11/2024 4:51 PM CDT 3 mL documented in this encounter Additional Health Concerns Infection Onset Date Last Indicated Resolved Time Protective Environment 10/10/2022 10/10/2022 Assessment Noted Time PHQ-9 Depression Total Score: 4 08/12/19 3:31 PM CDT documented as of this encounter Care Teams Fish Net Maker Relationship Specialty Start Date End Date Ana Red MPAS, P.A.-C. [address] [facility] [place] [place] [address] PCP - General Internal Medicine 12/01/21 [facility] [place] [facility] 08/25/21 documented as of this encounter
--- OUTSIDE RECORDS SUMMARY | 2024-09-11 15:05 | XMS_ITS | Encounter Summary ---
Author Organization [facility] Address [address] [place] [address] Care Team Providers Care English Teacher Name Role Phone Ana Red P.A.-C. Primary Care Pro vider Encounter Details Date Type Department Care Team (Late st Contact Info) Description 09/11/2024 3:05 PM CDT Ancillary Procedure Department of Nursing Social History Tobacco Use Types Packs/Day Years Used Date Smoking Tobacco: Former Cigarettes 1 - 10/12/2021 Passive Smoke Exposure: Never Smokeless Tobacco: Never Comments:Smoked cigarettes f rom age 18-30 about Alcohol Use Standard Drinks/Week Comments Never 0 (1 standard drink = 0.6 oz pure alcohol) Havent had any alcohol in about a year or so. [facility] Utilities Answer Date Recorded In the past 12 months has [place], oil, or water [facility] threatened to shut off services in your [...] How often do you attend chur or orthodoxy services? Patient declined 02/10/2022 Do you belong to any clubs o r organizations such as scientology groups, unions, fraternal [...] Answer Date Recorded PHQ-2 Score 0 08/11/2024 [facility] of Occupat ional Health - Occupational [...] your living situation today? [facility] to live 09/09/2024 Education Answer Date Recorded What is the highest level of school you have completed or the highest degree you have received? Associate degree: occupational, technical, or vocational program 07/16/2021 Comments No Sex and Gender Information Value Date Recorded Sex Assigned at Female 04/12/2021 7:39 PM ENGINEERING INTERN Legal Sex Female 7:53 PM ENGINEERING INTERN Gender Identity Female 04/12/2021 7:39 PM ENGINEERING INTERN Sexual Orientation Straight 04/12/2021 7: 39 PM ENGINEERING INTERN documented as of this encounter Plan of Treatment Upcoming Encounters Date Type Department Care Team (Latest Contact Info) Description 10/05/2024 9:30 AM CDT Appointment Department of Radiology, [facility], in [place], [place] 200 [place] [address] Marisabel Carpenter APRN, C.N.P., D.N.P. 200 [place] [address] 10/05/2024 12:00 PM CDT Appointment Division of Pulmonary Medicine in [place], [place] 200 [place] [address] Edgar Montgomery M.B.B.S., M.S. [address] [place] [phone] 10/05/2024 2:45 PM CDT Infusion Department of Infusion Therapy in [place], [place] [address] [place] [address] Noreen Ansari P.A.-C., M.S. [address] [place] [phone] 10/10/2024 7:50 AM CDT Lab Department of Laboratory Medicine and Pathology, [place], [place] [address] [place] [address] Marisabel Carpenter APRN, C.N.P., D.N.P. [address] [place] [phone] 10/10/2024 8:00 AM CDT Lab Department of Laboratory Medicine and Pathology, [place], [place] [address] [place] [address] Marisabel Carpenter APRN, C.N.P., D.N.P. [address] [place] [phone] 10/10/2024 8:30 AM CDT Nurse Only [facility] in [place], [place] [address] [place] [address] Marisabel Carpenter APRN, C.N.P., D.N.P. [address] [place] [phone] 10/10/2024 9:20 AM CDT Appointment [facility], [facility] [place], [place] [address] [place] [address] Marisabel Carpenter APRN, C.N.PSuma, D.N.P. [address] [place] [phone] 10/10/2024 9:45 AM CDT Appointment Department of Laboratory Medicine and Pathology, [facility] in [place], [place] [address] [place] [address] Marisabel Carpenter APRN, C.N.PSuma, D.N.P. [address] [place] [phone] 10/10/2024 1:30 PM CDT Appointment Department of Radiology, [facility] in [place], [place] [address] [place] [address] Marisabel Carpenter APRN, Katrin.N.PSuma, D.N.P. [address] [place] [phone] Discharge Disposition: Home or Self Care 10/10/2024 2:45 PM CDT Appointment Department of Radiology, [facility] [place], [place] [address] [place] [address] Marisabel Carpenter APRN, Katrin.N.PSuma, D.N.P. [address] [place] [phone] 10/11/2024 8:00 AM CDT Office Visit Ramirez Navarrete [facility] for Transplantation and Clinical Regeneration in [place], [place] [address] [place] [phone] Marisabel Carpenter APRN, C.N.PSuma, D.N.P. [address] [place] [phone] 10/11/2024 11:00 AM CDT Comprehensive [facility] in [place], [place] [address] [place] [address] Sree Devlin M.D. [address] [place] [phone] 10/11/2024 1:00 PM CDT Comprehensive Visit Department of Otorhinolaryngology in [place], [place] [address] [place] [address] Randal Urbano P.A.-C., M.S. [address] [place] [phone] 10/11/2024 2:00 PM CDT Office Visit [facility] for Trans[facility] and Clinical Reg[facility] in [place], [place] [address] [place] [address] Hiro Murillo P.A.-C. [address] [place] [phone] 10/11/2024 4:00 PM CDT Comprehensive Visit Department of Dermatology in [place], [place] [address] [place] [address] Parul Martinez M.D. [address] [place] [phone] 10/12/2024 8:00 AM CDT Telemedicine [facility] Clinical [facility] in [place], [place] [address] [place] [address] Ervin Mckeon D.O. [address] [place] [phone] 11/01/2024 2:15 PM CDT Appointment Division of Pulmonary Medicine in [place], [place] [address] [place] [address] Edgar Montgomery M.B.B.S., M.S. [address] [place] [address] documented as of this encounter Procedures Procedure Name Priority Date/Time Associated Diagnosis Comments NURSING IMAGE EXAM Routine 09/11/2024 3: 03 PM CDT documented in this encounter Results * Arm, Right-Nursing Image Exam (09/11/2024 3:03 PM CDT) 09/11/2024 3:01 PM CDT Narrative [facility] - 09/11/2024 3:03 PM CDT This order has been created [...] documented as of this encounter Care Teams English Teacher Relationship Specialty Start Date End Date Ana Red MPAS, P.A.-C. [address] [place] [address] PCP - General Internal Medicine 12/01/21 [facility] [place] [facility] 08/25/21 documented as of this encounter
--- OUTSIDE RECORDS SUMMARY | 2024-09-11 21:13 | XMS_ITS | Encounter Summary ---
Author Organization [facility] Address [address] [place] [id number] Care Team Providers Care Applications Intern Name Role Phone Ana Red P.A.-C. Primary Care Pro vider Reason for Visit * Reason Comments Arm Pain Encounter Details Date Type Department Care Team (Late st Contact Info) Description 09/11/2024 9:13 PM CDT - 09/12/2024 3:24 AM CDT Emergency [facility] Emergency Department [address] [place] [phone] Marcelo Ballesteros M.D. [address] [place] [phone] Thrombosis Venous (Primary Dx); Pain Arm Right Discharge Disposition: Home or Self Care Social History Tobacco Use Types Packs/Day Years Used Date Smoking Tobacco: Former Cigarettes 1 - 10/12/2021 Passive Smoke Exposure: Never Smokeless Tobacco: Never Comments:Smoked cigarettes f rom age 18-30 about Alcohol Use Standard Drinks/Week Comments Never 0 (1 standard drink = 0.6 oz pure alcohol) Havent had any alcohol in about a year or so. [facility] Utilities Answer Date Recorded In the past 12 months has e electric, gas, oil, or water company [...] How often do you attend [facility] or baptism services? Patient declined 02/10/2022 Do you belong [...] Answer Date Recorded PHQ-2 Score 0 08/11/2024 [facility] - Occupational [...] have [facility] 09/09/2024 Education Answer Date Recorded What is the highest level of school you have completed or the highest degree you have received? Associate degree: occupational, technical, or vocational program 07/16/2021 Comments No Sex and Gender Information Value Date Recorded Sex Assigned at Female 04/12/2021 7:39 PM OIL PIPE INSPECTOR Legal Sex Female 7:53 PM OIL PIPE INSPECTOR Gender Identity Female 04/12/2021 7:39 PM OIL PIPE INSPECTOR Sexual Orientation Straight 04/12/2021 7: 39 PM OIL PIPE INSPECTOR documented as of this encounter Last Filed Vital Signs Vital Sign Reading Time Taken Comments Blood Pressure 115/90 09/12/2024 1:45 AM CDT Pulse 89 09/12/2024 3:00 AM CDT Temperature 36.7 C (98.1 F) 09/11/2024 11:20 PM CDT Respiratory Rate 16 09/11/2024 11:20 PM CDT Oxygen Saturation 100% 09/12/2024 3:00 AM CDT Inhaled Oxygen Concentration - - Weight 53.7 kg (118 lb 6.2 oz) 09/11/2024 9:17 P M CDT Height - - Body Mass Index 23.06 09/08/2024 12:12 PM CDT documented in this encounter Discharge Instructions * Discharge Instructions* Hugo Patel M.D. - 09/12/2024 1:07 AM CDT We recommend warm compresses and wraps to the limb. Please follow up with your primary care physician for continued evaluation and treatment. Return to the emergency department for worsening of symptoms or for any other concerns. documented in this encounter Medications at Time [...] glucose testing. 1 each 05/15/2024 1:09 PM OIL PIPE INSPECTOR 05/15/2024 blood sugar diagnostic strips Use to test blood sugar 2 time(s) per day. 100 test 1 07/04/2024 1:55 PM OIL PIPE INSPECTOR 07/04/2024 07/05/19 26 blood-glucose meter misc Test as directed for diabetes control. 1 each 05/15/2024 1:09 PM OIL PIPE INSPECTOR 05/15/2024 blood-glucose sensor (FreeStyle Kristina 3 Plus [...] testing. 100 each 1 07/04/2024 1:55 PM OIL PIPE INSPECTOR 07/04/2024 levonorgestreL (MIRENA) 21 mcg/24 hours (8 yrs) 52 mg IUD 1 Intra Uterine Device (1 each total) by intrauterine route continuously. Inserted 07/31/2022. 1 each 12/31/2022 lidocaine 4 % adhesive patch,medicated Place 1 patch on the skin daily. Apply to painful areas. 30 patch 1 04/20/2024 aodurt-kyhhnekt-hk ylase (Creon) 12,000-38,000-60,[address] [...] minimal response. 2 each 04/25/2024 12:55 PM OIL PIPE INSPECTOR 04/25/2024 ondansetron (Zofran) 8 mg tabletIndications: Transplant Liver (HCC),Nausea,Medic ation Therapy Head [employer] Custodian Not 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 Take 1 tablet (8 mg [...] mouth daily. 90 tablet 06/27/2024 5:33 PM OIL PIPE INSPECTOR 06/28/2024 pregabalin (Lyrica) 75 mg capsule Take [...] for constipation. 100 tablet 06/27/2024 5:33 PM OIL PIPE INSPECTOR 06/27/2024 09/16/19 tacrolimus (Prograf) 1 mg capsuleIndications :prevention of liver transplant rejection Take 4 capsules (4 mg total) by mouth 2 (two) times a day Indications: liver transplant rejection prevention. 720 capsule 3 09/09/2024 09/26/19 25 documented as of this encounter ED Notes * Marcelo Ballesteros M.D. - 09/11/2024 11:41 PM CDT CHIEF COMPLAINT/REASON FOR VISIT Arm Pain ASSESSMENT / PLAN Ms. Brunson is a very pleasant 34 y.o. female who presents to the ED for evaluation of right arm pain and redness. 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 She was recently admitted for treatment of acute cellular rejection and initiation of Thymoglobulin infusion. She was admitted from September 07 through September 09. While receiving one of her doses of Thymoglobulin she did have infiltration from her IV. Since being discharged she has had more pain and redness about her right arm. She also has noted some chest tightness and shortness of breath. Onexam, she has erythema and tenderness over the right forearm. No crepitus. No streaking proximally.She is saturating well on room air with no increased work of breathing. Ultrasound shows: US Upper Extremity Veins Right Preliminary Result 1. Negative for acute DVT. 2. Positive for acute SVT involving a short segment of the cephalic vein in the forearm CT Chest Angiogram and Pulmonary Arteries with IV Contrast (Results Pending) Given her chest pain, we are obtaining a CT angiogram to exclude acute coronary syndrome. Troponin testing will be obtained to exclude acute coronary syndrome. If these are unrevealing, I believe shewill be medically cleared safe for discharge. We will provide supportive treatments for her SVT with compression and elevation. I don't think anticoagulation is necessary given the short segment involved. No evidence of secondary cellulitis. As we are still in the midst of Ms. Brunson's workup, final disposition will be pending the results of her workup as well as reevaluation. It was a pleasureto meet with and provide care for Ms. Brunson today. She is comfortable with the plan above and all questions have been answered to the best of our ability for her at this time. Final Diagnoses: as of 09/11/241 Pain Arm Right Thrombosis Venous - Superficial I performed an independent history and physical examination of the patient and discussed the management with the resident. Marcelo Ballesteros M.D. 09/12/24 0053 * Faviola De Oliveira R.N. - 09/11/2024 11:27 PM CDT Patient arrives to ED today with red, warm area on RFA. Rates pain 12/10. Reports she had Thymoglobulin infusion for rejection of liver txplnt on Wednesday and arm has increasingly grown worse in condition. They attempted infusion today on other arm and she reports they stopped one hr in, of four hour planned infusion, d/t poor response, skin was splotchy. Faviola De Oliveira R.N. 09/11/240 * Nola Dickson R.N. - 09/11/2024 9:29 PM CDT Patient presents to the Emergency Department with right arm pain, swelling, and erythema. Patient had a Thymoglobulin infusion on Wednesday and the medication infiltrated. Today patient noted new swelling, redness, and pain at the site. Nola Dickson R.N. 09/11/242130 documented in this encounter Plan of Treatment Upcoming Encounters Date Type Department Care Team (Latest Contact Info) Description 10/05/2024 9:30 AM CDT Appointment Department of Radiology, [facility], in [place] [address] [place] [address] Marisabel Carpenter APRN, C.N.P., D.N.P. [address] [place] [phone] 10/05/2024 12:00 PM CDT Appointment Division of Pulmonary Medicine in [place], [place] [address] [place] [phone] Edgar Montgomery M.B.B.S., M.S. [address] [place] [phone] 10/05/2024 2:45 PM CDT Infusion Department of Infusion Therapy in [place], [place] [address] [place] [phone] Noreen Ansari P.A.-C., M.S. [address] [place] [phone] 10/10/2024 7:50 AM CDT Lab Department of Laboratory Medicine and Pathology, [facility] in [place], [place] [address] [place] [phone] Marisabel Carpenter APRN, C.N.P., D.N.P. [address] [place] [phone] 10/10/2024 8:00 AM CDT Lab Department of Laboratory Medicine and Pathology, [facility] in [place], [place] [address] [place] [phone] Marisabel Carpenter APRN, C.N.P., D.N.P. [address] [place] [phone] 10/10/2024 8:30 AM CDT Nurse Only [facility] in [place], [place] [address] [place] [phone] Marisabel Carpenter APRN, C.N.P., D.N.P. [address] [place] [phone] 10/10/2024 9:20 AM CDT Appointment Department of Radiology, [facility] in [place], [place] [address] [place] [phone] Marisabel Carpenter APRN, C.N.P., D.N.P. [address] [place] [phone] 10/10/2024 9:45 AM CDT Appointment Department of Laboratory Medicine and Pathology, [facility] in [place], [place] [address] [place] [phone] Marisabel Carpenter APRN, Katrin.N.PSuma, D.N.P. [address] [place] [phone] 10/10/2024 1:30 PM CDT Appointment Department of Radiology, [facility] in [place], [place] [address] [place] [address] Marisabel Carpenter APRN, C.N.P., D.N.P. [address] [place] [phone] Discharge Disposition: Home or Self Care 10/10/2024 2:45 PM CDT Appointment Department of Radiology, [facility] in [place], [place] [address] [place] [address] Marisabel Carpenter APRN, C.N.P., D.N.P. [address] [place] [phone] 10/11/2024 8:00 AM CDT [facility] [place], [place] [address] [place] [phone] Marisabel Carpenter APRN, C.NDayne, D.N.P. [address] [place] [phone] 10/11/2024 11:00 AM CDT Comprehensive Visit [facility] in [place], [place] [address] [place] [phone] Sree Devlin M.D. [address] [place] [phone] 10/11/2024 1:00 PM CDT Comprehensive Visit Department of Otorhinolaryngology in [place], [place] [address] [place] [phone] Randal Urabno P.A.-Katrin., M.S. [address] [place] [phone] 10/11/2024 2:00 PM CDT Office Visit [facility] in [place], [place] [address] [place] [phone] Hiro Murillo P.A.-C. [address] [place] [phone] 10/11/2024 4:00 PM CDT Comprehensive Visit Department of Dermatology in [place], [place] [address] [place] [phone] Parul Martinez M.D. [address] [place] [phone] 10/12/2024 8:00 AM CDT Telemedicine [facility] in [place], [place] [address] [place] [phone] Ervin Mckeon D.O. [address] [place] [phone] 11/01/2024 2:15 PM CDT Appointment Division of Pulmonary Medicine in [place], [place] [address] [place] [phone] Edgar Montgomery M.B.B.S., M.S. [address] [place] [phone] documented as of this encounter Procedures Procedure Name Priority Date/Time Associated Diagnosis Comments PATIENT STATUS STAT 09/12/2024 2:11 AM CDT VENOUS BLOOD GAS W/O COOX STAT 09/12/2024 2:[address] CHEST ANGIOGRAM AND PULMONARY ARTERIES WITH IV CONTRAST RAD - Semiurgent (Fast; most ED patients; some inpatients) 09/12/2024 12:29 AM CDT TROPONIN T, BASELINE, 5TH GEN, P STAT 09/11/2024 11:55 PM CDT NT-PRO B-TYPE NATRIURETIC PEPTIDE (BNP), S STAT 09/11/2024 11:55 PM CDT CBC WITH DIFFERENTIAL, B STAT 09/11/2024 11:55 PM CDT HUMAN CHORIONIC GONADOTROPIN (HCG), EDDI, STAT 09/11/2024 11:55 PM CDT BASIC METABOLIC PANEL, S/P STAT 09/11/2024 11:55 PM CDT ECG STAT 09/11/2024 11:43 PM CDT US UPPER EXTREMITY VEINS RIGHT RAD - Semiurgent (Fast; most ED patients; some inpatients) 09/11/2024 10:05 PM CDT BETA-HYDROXYBUTYRAT E, S STAT 09/11/2024 4:46 PM CDT documented in this encounter Results * Patient Status (09/12/2024 2:11 AM CDT) FIO2 0.21 0.21=AIR 09/12/2024 2:16 AM CDT STMA Device RA 09/12/2024 2:16 AM CDT STMA Spont. breaths/min 18 09/12/2024 2:16 AM CDT STMA Blood 09/12/2024 2:11 AM CDT 09/12/2024 2:16 AM CDT Hugo Patel M.D. LAB BLOOD NON ADD-ON Final Re sult [facility] [address] [place] [address], [facility] STMA [facility] [address] [place] [address] * (ABNORMAL) Blood Gas without Coox, Venous (09/12/2024 2:11 AM CDT) Pathologist [facility] [place] pO2, Venous, B 71 Not applicable mm Hg 09/12/2024 2:18 AM CDT STMA pCO2, Venous, B 39(L) 41 - 51 mm Hg 09/12/2024 2:18 AM CDT STMA pH, Venous, B 7.37 7.32 - 7.43 pH 025 2:18 AM CDT STMA Base Excess, Venous, B -3 Not applicable mmol/L 09/12/2024 2:18 AM CDT STMA HCO3, Venous, B 22 Not applicable mmol/L 09/12/2024 2:18 AM CDT STMA Sample Site, Venous, B Venipunct 09/12/2024 2:16 AM CDT STMA Blood (Blood, Venous) 09/12/2024 2:11 AM CDT 09/12/2024 2:16 AM CDT Hguo Patel M.D. LAB BLOOD NON ADD-ON Final Re sult [facility] [address] [place] [address], [facility] [address] [place] [address] * CT Chest Angiogram and Pulmonary Arteries with IV Contrast (09/12/2024 12:29 AM CDT) Anatomical Region Laterality Modality Chest, Cardiovascular RST LO S, Thoracic ARZ LOS, Thoracic FLA LOS N/A Computed Tomography, Compute d Tomography 09/12/2024 12:2 9 AM CDT Impressions 09/12/2024 7:11 AM CDT 1. No acute or chronic pulmonary embolism. 2. Chronic findings in the upper abdomen including diffuse hepatic steatosis of the liver transplant, splenomegaly, and sequelae of chronic pancreatitis. Narrative 09/12/2024 7:11 AM CDT EXAM: CT CHEST ANGIOGRAM AND PULMONARY ARTERIES WITH IV CONTRAST Including 3D image postprocessing with or without AI assistance. COMPARISON: CT chest 06/21/2024 FINDINGS: Negative for acute pulmonary embolism. Borderline enlargement of the main pulmonary artery which can be seen in the setting of pulmonary hypertension. Variant pulmonary vein anatomy with a posterior right upper lobe pulmonary vein draining directly into the right atrium (series 5, image 121). Lungs are clear without pleural effusion or consolidation. No new or enlarging pulmonary nodules. No thoracic lymphadenopathy by size criteria. Cardiac size is normal without pericardial effusion. Postoperative changes of liver transplantation with diffuse hepatic steatosis. Pancreatic parenchymal calcifications consistent with sequelae of chronic pancreatitis. Splenomegaly. No acute osseous lesion. Procedure Note Ervin Crowe M.D. - 09/12/2024 EXAM: CT CHEST ANGIOGRAM AND PULMONARY ARTERIES WITH IV CONTRAST Including 3D image postprocessing with or without AI assistance. COMPARISON: CT chest 06/21/2024 FINDINGS: Negative for acute pulmonary embolism. Borderline enlargement of the mainpulmonary artery which can be seen in the setting of pulmonaryhypertension. Variant pulmonary vein anatomy with a posterior right upperlobe pulmonary vein draining directly into the right atrium (series 5, image 121). Lungs are clear without pleural effusion or consolidation. No new orenlarging pulmonary nodules. No thoracic lymphadenopathy by size criteria.Cardiac size is normal without pericardial effusion. Postoperative changes of liver transplantation with diffuse hepaticsteatosis. Pancreatic parenchymal calcifications consistent with sequelaeof chronic pancreatitis. Splenomegaly. No acute osseous lesion. IMPRESSION: 1. No acute or chronic pulmonary embolism. 2. Chronic findings in the upper abdomen including diffuse hepaticsteatosis of the liver transplant, splenomegaly, and sequelae of chronicpancreatitis. us Hugo Patel M.D. IMG CT PROCEDURES Final Resul t * Troponin T, Baseline with 2 Hour/6 Hour Reflex Biomarker Panel (09/11/2024 11:55 PM CDT) Troponin T, Baseline, 5th gen <6 <=10 ng/L 09/12/2024 12:54 AM CDT STMA Blood (Blood, Venous) 09/11/2024 11:55 PM CDT 09/12/2024 12:28 AM CDT us Hugo Patel M.D. LAB BLOOD TROPONIN Final Resu lt [facility] [address] [place] [address], [facility] [address] [place] [address] * NT-Pro B-Type Natriuretic Peptide (BNP) (09/11/2024 11:55 PM CDT) NT-Pro BNP 77 <160 pg/mL 09/12/2024 3:16 AM CDT [facility] Comment: REVISED RESULTS NT-proBNP values less than 300 pg/mL have a 99% negative predictive value for excluding acute congestive heart failure. A cutoff of 1200 pg/mL for patients with an eGFR<60 yields a diagnostic sensitivity and specificity of 89% and 72% for acute congestive heart failure. NT-proBNP values greater than 450 pg/mL are consistent with CHF in adults under 50 years of age. ----PREVIOUSLY REPORTED ---- 89 pg/mL NT-proBNP values less than 300 pg/mL have a 99% negative predictive value for excluding acute congestive heart failure. A cutoff of 1200 pg/mL for patients with an eGFR<60 yields a diagnostic sensitivity and specificity of 89% and 72% for acute congestive heart failure. NT-proBNP values greater than 450 pg/mL are consistent with CHF in adults under 50 years of age. Flagged as: Normal (Reported 09/12/2024 00:54) Blood (Blood, Venous) 09/11/2024 11:55 PM CDT 09/12/2024 12:28 AM CDT Hugo Patel M.D. LAB BLOOD ADD-ON Edited Resul t - Final [facility] [address] [place] [address], [facility] [address] [place] [address] * (ABNORMAL) Basic Metabolic Panel (09/11/2024 11:55 PM CDT) Potassium, P 3.7 3.6 - 5.2 mmol/L 09/12/2024 1:25 AM CDT DTL Sodium, P 134(L) 135 - 145 mmol/L 09/12/2024 1:25 AM CDT DTL Chloride, P 101 98 - 107 mmol/L 09/12/2024 1:25 AM CDT DTL Bicarbonate, P 20(L) 22 - 29 mmol/L 09/12/2024 1:25 AM CDT DTL Anion Gap, P 13 7 - 15 09/12/2024 1:25 AM CDT DTL BUN (Blood Urea Nitrogen), P 10 6 - 21 mg/dL 09/12/2024 1:25 AM CDT DTL Creatinine 0.40(L) 0.59 - 1.04 mg/dL 09/12/2024 1:25 AM CDT DTL Estimated GFR (eGFR) >90 >=60 mL/min/BSA 09/12/2024 1:25 AM CDT DTL Comment: Estimated GFR calculated using the 2020 CKD_EPI creatinine equation. Calcium, Total, P 9.1 8.6 - 10.0 mg/dL 09/12/2024 1:25 AM CDT DTL Glucose, P 485(CH) 70 - 140 mg/dL 09/12/2024 1:25 AM CDT DTL Blood (Blood, Venous) 09/11/2024 11:55 PM CDT 09/12/2024 12:37 AM CDT Hugo Patel M.D. LAB BLOOD ADD-ON Final Result [facility] [address] [place] [address], [facility] DTL [facility] [address] [place] [address] * (ABNORMAL) CBC with Differential, Blood (09/11/2024 11:55 PM CDT) Hemoglobin 12.8 11.6 - 15.0 g/dL 09/12/2024 12:31 AM CDT STMA Hematocrit 37.0 35.5 - 44.9 % 09/12/2024 12:31 AM CDT STMA Erythrocytes 4.41 3.92 - 5.13 x10(12)/L 09/12/2024 12:31 AM CDT STMA MCV 83.9 78.2 - 97.9 fL 09/12/2024 12:31 AM CDT STMA RBC Distrib Width 11.5(L) 12.2 - 16.1 % 09/12/2024 12:31 AM CDT STMA Platelet Count 133(L) 157 - 371 x10(9)/L 09/12/2024 12:56 AM CDT STMA Leukocytes 5.3 3.4 - 9.6 x10(9)/L 09/12/2024 12:56 AM CDT STMA Neutrophils 5.00 1.56 - 6.45 x10(9)/L 09/12/2024 12:31 AM CDT DHPM Lymphocytes 0.24(L) 0.95 - 3.07 x10(9)/L 09/12/2024 12:31 AM CDT STMA Monocytes 0.05(L) 0.26 - 0.81 x10(9)/L 09/12/2024 12:31 AM CDT STMA Eosinophils <0.03 0.03 - 0.48 x10(9)/L 09/12/2024 12:31 AM CDT STMA Basophils <0.03 0.01 - 0.08 x10(9)/L 09/12/2024 12:31 AM CDT STMA Blood (Blood, Venous) 09/11/2024 11:55 PM CDT 09/12/2024 12:28 AM CDT Hugo Patel M.D. LAB BLOOD ADD-ON Final Result Performing Organization Address [facility] Co de Phone Number [facility] [address] [place] [address], [facility] [address] [place] [address] [facility] [address] [place] [address] * hCG (Human Chorionic Gonadotropin), Quantitative, (09/11/2024 11:55 PM CDT) HCG, Quantitative, , P <1.0 <5 IU/L 09/12/2024 12:54 AM CDT STMA Blood (Blood, Venous) 09/11/2024 11:55 PM CDT 09/12/2024 12:28 AM CDT Hugo Patel M.D. LAB BLOOD ADD-ON Final Result Performing Organization Address [facility] Co de Phone Number [facility] [address] [place] [address], [facility] [address] [place] [address] * ECG 12 Lead (09/11/2024 11:43 PM CDT) Ventricular Rate ECG/Min 90 BPM MUSE MO Interval 150 ms MUSE QRSD Interval 78 ms MUSE QT Interval 364 ms MUSE QTC Interval 445 ms MUSE P [place] 3 degrees MUSE R [place] -1 degrees MUSE T Wave [place] 13 degrees MUSE 09/11/2024 11:4 3 PM CDT 09/11/2024 11:56 PM CDT Impressions MUSE - 09/11/2024 11:56 PM CDT Sinus rhythm Low voltage QRS in the limb leads Nonspecific ST and T wave abnormality When compared with ECG of 06-Sep-2024 19:02, QRS axis shifted left QRS voltage has decreased in the limb leads Reviewed by STERLING Lockett Narrative Procedure Note Silvestre Gutierrez M.D., Ph.D. - 09/11/2024 IMPRESSION: Sinus rhythm Low voltage QRS in the limb leads Nonspecific ST and T wave abnormality When compared with ECG of 06-Sep-2024 19:02, QRS axis shifted left QRS voltage has decreased in the limb leads Reviewed by STERLING Lockett us Hugo Patel M.D. ECG ORDERABLES Final Result MUSE NA * US Upper Extremity Veins Right (09/11/2024 10:05 PM CDT) Anatomical Region Laterality Modality Upper Extremity, Ultrasound RST LOS, Ultrasound ARZ LOS, Ultrasound FLA LOS Right Ultrasound Impressions 09/12/2024 8:08 AM CDT 1. Negative for acute DVT. 2. Positive for age indeterminate SVT involving a short segment of the cephalic vein in the upper forearm and extending into a superficial venous branch. Narrative 09/12/2024 8:08 AM CDT EXAM: US UPPER EXTREMITY VEINS RIGHT Exam performed with color and spectral Doppler analysis. COMPARISON: None. FINDINGS: RIGHT: Internal Jugular Vein: Negative. Innominate Vein: Negative. Subclavian Vein: Negative. Axillary Vein: Negative. Brachial Veins: Negative. Cephalic Vein: Age indeterminate SVT. An occlusive thrombus within a short segment of the cephalic vein in the upper forearm, which extends into a superficial venous branch and corresponds with an area of redness on the skin. Patent cephalic vein above the antecubital fossa. Basilic Vein: Negative. Information on venous thrombosis and management can be found on the [employer] site. Link [email or web address] Procedure Note Haile Flowers M.D. - 09/12/2024 EXAM: US UPPER EXTREMITY VEINS RIGHT Exam performed with color and spectral Doppler analysis. COMPARISON: None. FINDINGS: RIGHT: Internal Jugular Vein: Negative. Innominate Vein: Negative. Subclavian Vein: Negative. Axillary Vein: Negative. Brachial Veins: Negative. Cephalic Vein: Age indeterminate SVT. An occlusive thrombus within a shortsegment of the cephalic vein in the upper forearm, which extends into asuperficial venous branch and corresponds with an area of redness on theskin. Patent cephalic vein above the antecubital fossa. Basilic Vein: Negative. Information on venous thrombosis and management can be found on theAsk[employer]oy [employer] site. [email or web address] IMPRESSION: 1. Negative for acute DVT. 2. 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 Xavi Sargent P.A.-C. IMG US PROCEDURES Final R esult * Beta-Hydroxybutyrate (09/11/2024 4:46 PM CDT) Beta-Hydroxybut yrate, S <0.1 <0.4 mmol/L 09/12/2024 2:12 AM CDT DTL Blood (Blood, Venous) 09/11/2024 4:46 PM CDT 09/12/2024 1:39 AM CDT Hugo Patel M.D. LAB BLOOD ADD-ON Final Result [facility] [address] [place] [address], [facility] [place] [address] [place] [address] documented in this encounter Visit Diagnoses Diagnosis Thrombosis Venous- Primary Pain Arm Right documented in this encounter Administered Medications Inactive Administered Medications - up to 3 most recent administrations Medication Order MAR Action Action Date Dose Rate Site fentaNYL injection 50 mcg (Sublimaze) 50 mcg, intravenous, Once, On Wed09/12/24 at 0012, For 1 dose Given 09/12/2024 12:13 AM CDT 50 mcg fentaNYL injection 50 mcg (Sublimaze) 50 mcg, intravenous, Every 15 min PRN, severe pain or score 7-10 of 10, Starting on Wed09/12/24 at 0018, For 3 doses HYDROmorphone (PF) injection 1 mg (Dilaudid) 1 mg, intravenous, Once, On Wed09/12/24 at 0054, For 1 dose Given 09/12/2024 12:58 AM CDT 1 mg HYDROmorphone (PF) injection 1 mg (Dilaudid) 1 mg, intravenous, Once, On Wed09/12/24 at 0132, For 1 dose Given 09/12/2024 1:59 AM CDT 1 mg HYDROmorphone (PF) injection 1 mg (Dilaudid) 1 mg, intravenous, Once, On Wed09/12/24 at 0249, For 1 dose Given 09/12/2024 3:04 AM CDT 1 mg HYDROmorphone tablet 2 mg (Dilaudid) 2 mg, oral, Once, On Wed09/11/24 at 2330, For 1 dose, Does patient have renal impairment, frailty, or advanced age (avoid morphine) and unable to take oxycodone? No, Did the patient fail other oral opioids during hospitalization? No, Does the patient have documented allergies to oxycodone and/or morphine? No, Is the patient on hydromorphone chronically for pain? Yes Given 09/11/2024 11:33 PM CDT 2 mg iopromide 370 mg iodine/mL injection 1-162 mL (Ultravist) 1-162 mL, intravenous, Once in imaging, contrast, Starting on Wed09/12/24 at 0004, For 1 dose, Imaging Protocol Orders, Dose per Radiant Medication Guidelines Given 09/12/2024 12:22 AM CDT 80 mL NaCl 0.9 % bolus 1,000 mL 1,000 mL, intravenous, at 1,000 mL/hr, Administer over 1 Hours, Once, On Wed09/12/24 at 0129, For 1 dose New Bag 09/12/2024 1:47 AM CDT 1,000 mL 1000 mL/hr sodium chloride (PF) 0.9 % injection 1-100 mL 1-100 mL, intravenous, Once, On Wed09/12/24 at 0005, For 1 dose, Imaging Protocol Orders, Dose per Radiant Medication Guidelines Given 09/12/2024 12:21 AM CDT 30 mL documented in this encounter Active and Recently Administered Medications Times are shown in CDT. Scheduled Medication Order 09/10/2024 09/11/2024 09/12/2024 fentaNYL injection 50 mcg (Sublimaze) (COMPLETED) 50 mcg, intravenous, Once, On Wed09/12/24 at 0012, For 1 dose 0013 (Given - Provid er: Faviola De Oliveira R.N.) HYDROmorphone (PF) injection 1 mg (Dilaudid) (COMPLETED) 1 mg, intravenous, Once, On Wed09/12/24 at 0054, For 1 dose 0058 (Given - Provid er: Faviola De Oliveira R.N.) HYDROmorphone (PF) injection 1 mg (Dilaudid) (COMPLETED) 1 mg, intravenous, Once, On Wed09/12/24 at 0132, For 1 dose 0159 (Given - Provid er: Faviola De Oliveira R.N.) HYDROmorphone (PF) injection 1 mg (Dilaudid) (COMPLETED) 1 mg, intravenous, Once, On Wed09/12/24 at 0249, For 1 dose 0304 (Given - Provid er: Criselda Florian R.N.) HYDROmorphone tablet 2 mg (Dilaudid) (COMPLETED) 2 mg, oral, Once, On Wed09/11/24 at 2330, For 1 dose, Does patient have renal impairment, frailty, or advanced age (avoid morphine) and unable to take oxycodone? No, Did the patient fail other oral opioids during hospitalization? No, Does the patient have documented allergies to oxycodone and/or morphine? No, Is the patient on hydromorphone chronically for pain? Yes 2333 (Given - Provider: Faviola De Oliveira R.N.) insulin aspart U-100 injection 8 Units (NovoLOG) 8 Units, subcutaneous, Once, On Wed09/12/24 at 0134, For 1 dose 0207 (Not Given - Provider: Faviola De Oliveira R.N. - Reason: Other - Comment: patient supplied med, MD kline, RN supervised-8 units of personal insulin administered) NaCl 0.9 % bolus 1,000 mL (COMPLETED) 1,000 mL, intravenous, at 1,000 mL/hr, Administer over 1 Hours, Once, On Wed09/12/24 at 0129, For 1 dose 0147 (New Bag - Provider: Faviola De Oliveira R.N.)0310 (Stopped - Provider: Criselda Florian R.N.) sodium chloride (PF) 0.9 % injection 1-100 mL (COMPLETED) 1-100 mL, intravenous, Once, On Wed09/12/24 at 0005, For 1 dose, Imaging Protocol Orders, Dose per Radiant Medication Guidelines 0021 (Given - Provid er: Evi Ring, M.P.H., R.N.) PRN Medication Order 09/10/2024 09/11/2024 09/12/2024 fentaNYL injection 50 mcg (Sublimaze) 50 mcg, intravenous, Every 15 min PRN, severe pain or score 7-10 of 10, Starting on Wed09/12/24 at 0018, For 3 doses iopromide 370 mg iodine/mL injection 1-162 mL (Ultravist) (COMPLETED) 1-162 mL, intravenous, Once in imaging, contrast, Starting on Wed09/12/24 at 0004, For 1 dose, Imaging Protocol Orders, Dose per Radiant Medication Guidelines 0022 (Given - Provid er: Evi Ring, M.P.H., R.N.) documented in this encounter Additional Health Concerns Infection Onset Date Last Indicated Resolved Time Protective Environment 10/10/2022 10/10/2022 Assessment Noted Time PHQ-9 Depression Total Score: 4 08/12/19 25 3:31 PM CDT documented as of this encounter Care Teams Applications Intern Relationship Specialty Start Date End Date Ana Red MPAS, P.A.-C. [address] [place] [address] [place] [phone] PCP - General Internal Medicine [facility] documented as of this encounter
--- OUTSIDE RECORDS SUMMARY | 2024-09-11 23:30 | XMS_ITS | Encounter Summary ---
[facility] Address [address] [place] [address] Care Team Providers Care Borematic Operator Name Role Phone Ana Red P.A.-C. Primary Care Pro vider Encounter Details Date Type Department Care Team (Late st Contact Info) Description 09/11/2024 11:30 PM CDT Ancillary Procedure Department of Emergency Medicine Social History Tobacco Use Types Packs/Day Years Used Date Smoking Tobacco: Former Cigarettes 1 - 10/12/2021 Passive Smoke Exposure: Never Smokeless Tobacco: Never Comments:Smoked cigarettes f rom age 18-30 about Alcohol Use Standard Drinks/Week Comments Never 0 (1 standard drink = 0.6 oz pure alcohol) Havent had any alcohol in about a year or so. [facility] Utilities Answer Date Recorded In the past 12 months has [facility], gas, oil, or water [id number] threatened to shut off services in your [...] How often do you attend chur or restorationism services? Patient declined 02/10/2022 Do [...] Answer Date Recorded PHQ-2 Score 0 08/11/2024 [facility] - [...] your living situation today? I have a [facility] place to live 09/09/2024 Education Answer Date Recorded What is the highest level of school you have completed or the highest degree you have received? 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 [address] [place] [phone] 10/05/2024 12:00 PM CDT Appointment Division of Pulmonary Medicine in [place], [place] [address] [place] [phone] Edgar Montgomery M.B.B.S., M.S. [address] [place] [phone] 10/05/2024 2:45 PM CDT Infusion Department of Infusion Therapy in [place], [place] [address] [place] [address] Noreen Ansari P.A.-C., M.S. [address] [place] [phone] 10/10/2024 7:50 AM CDT Lab Department of Laboratory Medicine and Pathology, [place], [place] [address] [place] [address] Marisabel Carpenter APRN, C.N.P., D.N.P. [address] [place] [phone] 10/10/2024 8:00 AM CDT Lab Department of Laboratory Medicine and Pathology, [place], [place] [address] [place] [address] Marisabel Carpenter APRN, C.N.P., D.N.P. [address] [place] [phone] 10/10/2024 8:30 AM CDT Nurse Only [facility] in [place], [place] [address] [place] [address] Marisabel Carpenter APRN, C.N.P., D.N.P. [address] [place] [phone] 10/10/2024 9:20 AM CDT Appointment Department of Radiology, [facility] in [place], [place] [address] [place] [address] Marisabel Carpenter APRN, C.N.PSuma, D.N.P. [address] [place] [phone] 10/10/2024 9:45 AM CDT Appointment Department of Laboratory Medicine and Pathology, [facility] in [place], [place] [address] [place] [address] Marisabel Carpenter APRN, C.N.PSuma, D.N.P. [address] [place] [phone] 10/10/2024 1:30 PM CDT Appointment Department of Radiology, [facility] in [place], [place] [address] [place] [address] Marisabel Carpenter APRN, Katrin.N.PSuma, D.N.P. [address] [place] [phone] Discharge Disposition: Home or Self Care 10/10/2024 2:45 PM CDT Appointment Department of Radiology, [facility] in [place], [place] [address] [place] [address] Marisabel Carpenter APRN, Katrin.N.PSuma, D.N.P. [address] [place] [phone] 10/11/2024 8:00 AM CDT Office Visit Ramirez diaz [facility] for Trans[facility] Clinical Regeneration in [place], [place] [address] [place] [phone] Marisabel Carpenter APRN, C.N.PSuma, D.N.P. [address] [place] [phone] 10/11/2024 11:00 AM CDT [facility] [place], [place] [address] [place] [address] Sree Devlin M.D. [address] [place] [phone] 10/11/2024 1:00 PM CDT Comprehensive Visit Department of Otorhinolaryngology in [place], [place] [address] [place] [address] Randal Urbano P.A.-C., M.S. [address] [place] [phone] 10/11/2024 2:00 PM CDT Office Visit [facility] in [place], [place] [address] [place] [address] Hiro Murillo P.A.-C. [address] [place] [phone] 10/11/2024 4:00 PM CDT Comprehensive Visit Department of Dermatology in [place], [place] [address] [place] [address] Parul Martinez M.D. [address] [place] [phone] 10/12/2024 8:00 AM CDT Telemedicine [facility] in [place], [place] [address] [place] [address] Ervin Mckeon D.O. [address] [place] [phone] 11/01/2024 2:15 PM CDT Appointment Division of Pulmonary Medicine in [place], [place] [address] [place] [address] MohEdgar dykes M.B.B.S., M.S. [address] [place] [address] documented as of this encounter Procedures Procedure Name Priority Date/Time Associated Diagnosis Comments EMERGENCY MEDICINE IMAGE EXAM Routine 09/11/2024 11:30 PM CDT documented in this encounter Results * Arm-Emergency Medicine Image Exam (09/11/2024 11:30 PM CDT) 09/11/2024 11:2 7 PM CDT Narrative [facility] - 09/11/2024 11:30 PM CDT This order has been created [...] documented as of this encounter Care Teams Borematic Operator Relationship Specialty Start Date End Date Ana Red MPAS, P.A.-C. [address] [place] [phone] PCP - General Internal Medicine 12/01/21 [facility] 08/25/21 documented as of this encounter
--- OUTSIDE RECORDS SUMMARY | 2024-09-13 13:00 | XMS_ITS | Encounter Summary ---
Author Organization [facility] Address [address] [place] [id number] Care Team Providers Care Phone Engineer Name Role Phone Ana Red P.A.-C. Primary Care Pro vider Reason for Referral * Outpatient (Routine) - Closed Specialty Diagnoses / Procedures Referred By Meir lara Referred To Contact Diagnoses Transplant Liver (HCC) Procedures Place peripherally inserted central catheter (PICC) Noreen Ansari P.A.-C., M.S. [address] [place] [phone] Phone: tel: fax: [facility] Referral ID Status Reason Start Date Expiration Date Visits Re quested Visits Authorized [id number] Closed 09/13/2024 12/14/2025 1 1 Reason for Visit * Reason Comments Procedure PICC placement * Episode Based Medications (Routine) - Closed Specialty Diagnoses / Procedures Referred By Meir lara Referred To Contact Diagnoses Rejection Graft Acute Procedures [place] ANTITHYMOCYTE GLOBULN RABBIT Edgar Montgomery M.B.BSumaS., M.S. [address] [place] [phone] Phone: tel: fax: Edgar Montgomery M.B.B.S., M.S. [address] [place] [address] Phone: tel: fax: Referral ID Status Reason Start Date Expiration Date Visits Re quested Visits Authorized [id number] Closed 09/11/2024 05/02/2025 12 12 Encounter Details Date Type Department Care Team (Late st Contact Info) Description 09/13/2024 1:00 PM CDT Infusion Department of Infusion Therapy in [place], [place] [address] [place] [phone] Edgar Montgomery M.B.B.S., M.S. [address] [place] [phone] Transplant Liver (HCC) (Primary Dx); Rejection Graft Acute Social History Tobacco Use Types Packs/Day Years Used Date Smoking Tobacco: Former Cigarettes 1 - 10/12/2021 Passive Smoke Exposure: Never Smokeless Tobacco: Never Comments:Smoked cigarettes f rom age 18-30 about Alcohol Use Standard Drinks/Week Comments Never 0 (1 standard drink = 0.6 oz pure alcohol) Havent had any alcohol in about a year or so. [facility] [employer] Answer Date Recorded In the past 12 months has [facility] [employer], gas, oil, or water [employer] threatened to shut off services in your [...] often do you attend chur ch or restoration services? Patient declined 02/10/2022 Do you belong to any clubs o r organizations such as catholic groups, unions, fraternal [...] Answer Date Recorded PHQ-2 Score 0 08/11/2024 [facility] - Occupational [...] your living situation today? I have a [facility] place to live 09/09/2024 Education Answer Date Recorded What is the highest level of school you have completed or the highest degree you have received? 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 Legal Sex Female 7:53 PM COLLET DRILLER Gender Identity Female 04/12/2021 7:39 PM COLLET DRILLER Sexual Orientation Straight 04/12/2021 7: 39 PM COLLET DRILLER documented as of this encounter Last Filed Vital Signs Vital Sign Reading Time Taken Comments Blood Pressure 127/84 09/13/2024 8:51 PM CDT Pulse 72 09/13/2024 8:51 PM CDT Temperature 36.8 C (98.2 F) 09/13/2024 8:51 PM CDT Respiratory Rate 22 09/13/2024 8:51 PM CDT Oxygen Saturation 95% 09/13/2024 8:51 PM CDT Inhaled Oxygen Concentration - - Weight 53.8 kg (118 lb 9.7 oz) 09/13/2024 1:21 P M CDT Height - - Body Mass Index 23.1 09/08/2024 12:12 PM CDT documented in this encounter Progress Notes * Chhaya Stevens R.N. - 09/13/2024 1:00 PM CDT Patient preferred PICC placement with sedation, contacted Noreen Ansari for orders. Per provider, no openings today and patient needs to have thymo infusion today that cannot wait until tomorrow due to rejection. Patient informed and would like to proceed with Ativan prior to PICC placement in [facility]. Per provider, order placed for Ativan 2 mg. * Amy Stevenson R.N. - 09/13/2024 1:00 PM CDT Thymoglobulin infusion started at 1829. At 2031, patient c/o nausea and stated I feel really sick. On-call liver transplant provider, Ana Redmond CNP was contacted and antiemetics were ordered and administered, refer to MAR. While administering antiemetics, patient again stated she felt really sickand that she also had a headache, prn medications administered, refer to MAR. She stated that she did not think she could continue the medication because of how sick she felt and that she wanted to come back tomorrow or thought she should be admitted. Mccabe then c/o chest pain, stated that it was inher mid-chest and radiated under her left breast. She stated that it was sharp and stabbing. VS andSpO2 were WNL. The on-call liver transplant provider was again contacted, additional medications ordered, refer to MAR. While facing away from patient, this RN heard a gagging noise. Patient had an emesis basin and it appeared that she may have had her fingers in her mouth causing her to gag. She was handed kleenex, this nurse briefly turned away and when facing patient she was wiping off her fingers with kleenex. She again stated that she would not be able to finish the medication unless she was admitted. Ana Redmond CNP came to [facility] to assess patient. Patient declined any further interventionswhen offered and declined to continue Thymoglobulin. [facility]. documented in this encounter Procedure Notes * Amy Stevenson R.N. - 09/13/2024 1:00 PM CDTAssociated Order(s): Place peripherally inserted central catheter (PICC) Pre-Procedure Diagnose(s): Transplant Liver (HCC) Post-Procedure Diagnose(s): Transplant Liver (HCC) Place peripherally inserted central catheter (PICC) Performed by: Chhaya Stevens R.N. Authorized by: Noreen Ansari P.A.-C., M.S. Care team members present 1. Chhaya Stevens R.N. 2. Amy Stevenson R.N. PROCEDURE DETAILS Select line: PICC Line type: temporary (non-tunneled, non-implanted) Line size: 3.0 FR Catheter to vein ratio less than 45%: no Adult or Vik/Peds: adult # of lumens: single lumen Type of catheter: power injectable, valved and polyurethane Laterality: left IV location: basilic Optimal site selected: yes Number of insertion attempts: 1 Blood return: yes Placement assistance: ECG guidance Tip verification: ECG Catheter length (cm): 38 Initial exposed catheter (cm): 0 Mid upper arm circumference (cm): 22 All lumens flushed (Document volume in I/O): yes CONSENT Consent obtained: written (Risks, benefits and alternatives were discussed [...] confirmed in a procedural pause. PRE-PROCEDURE DETAILS Indications: Medication/nutrition requiring central access Appropriate hand hygiene, gown, cap, mask, protective eyewear, sterile gloves, skin preparation, sterile drape, and strict aseptic technique were utilized as applicable for the procedure.: yes Site preparation: Chlorhexidine SEDATION / ANESTHESIA Anesthesia method: local infiltration (2 mL) Local infiltrate type: lidocaine POST-PROCEDURE DETAILS Procedure completed successfully: yes Complications: no apparent complications documented in this encounter Plan of Treatment Upcoming Encounters Date Type Department Care Team (Latest Contact Info) Description 10/05/2024 9:30 AM CDT Appointment Department of Radiology, [facility] in [place], [place] [address] [place] [address] Marisabel Carpenter APRN, C.N.P., D.N.P. [address] [place] [phone] 10/05/2024 12:00 PM CDT Appointment Division of Pulmonary Medicine in [address] [phone] Edgar Montgomery M.B.B.S., M.S. [address] [place] [phone] 10/05/2024 2:45 PM CDT Infusion Department of Infusion Therapy in [place], [place] [address] [place] [phone] Noreen Ansari P.A.-Katrin., M.S. [address] [place] [phone] 10/10/2024 7:50 AM CDT Lab Department of Laboratory Medicine and Pathology, [facility] in [place], [place] [address] [place] [phone] Marisabel Carpenter APRN, C.N.P., D.N.P. [address] [place] [phone] 10/10/2024 8:00 AM CDT Lab Department of Laboratory Medicine and Pathology, [facility] in [place], [place] [address] [place] [address] Marisabel Carpenter APRN, C.N.P., D.N.P. [address] [place] [address] 10/10/2024 8:30 AM CDT Nurse Only Ramirez Nguyen [facility] in [place], [place] [address] [place] [phone] Marisabel Carpenter APRN, C.N.PSuma, D.N.P. [address] [place] [phone] 10/10/2024 9:20 AM CDT Appointment Department of Radiology, [place], [place] [address] [place] [phone] Marisabel Carpenter APRN, C.N.PSuma, D.N.P. [address] [place] [phone] 10/10/2024 9:45 AM CDT Appointment Department of Laboratory Medicine and Pathology, [place], [place] [address] [place] [phone] Marisabel Carpenter APRN, C.N.PSuma, D.N.P. [address] [place] [phone] 10/10/2024 1:30 PM CDT Appointment Department of Radiology, [place], [place] [address] [place] [phone] Marisabel Carpenter APRN, C.N.P., D.N.P. [address] [place] [phone] Discharge Disposition: Home or Self Care 10/10/2024 2:45 PM CDT Appointment Department of Radiology, [facility] in [place], [place] [address] [place] [phone] Marisabel Carpenter APRN, C.N.P., D.N.P. [address] [place] [phone] 10/11/2024 8:00 AM CDT Office Visit [facility] in [place], [place] [address] [place] [phone] Marisabel Carpenter APRN C.N.P., D.N.P. [address] [place] [phone] 10/11/2024 11:00 AM CDT Comprehensive Visit [facility] Transplantation and Clinical Regeneration in [place], [place] [address] [place] [address] Sree Devlin M.D. [address] [place] [phone] 10/11/2024 1:00 PM CDT Comprehensive Visit Department of Otorhinolaryngology in [place], [place] [address] [place] [phone] Randal Urbano, P.A.-C., M.S. [address] [place] [phone] 10/11/2024 2:00 PM CDT Office Visit [facility] in [place], [place] [address] [place] [phone] Hiro Murillo P.A.-CSuma [address] [place] [phone] 10/11/2024 4:00 PM CDT Comprehensive Visit Department of Dermatology in [place], [place] [address] [place] [phone] Parul Martinez M.D. [address] [place] [phone] 10/12/2024 8:00 AM CDT Telemedicine Ramirez Navarrete [facility] Clinical [facility] in [place], [place] [address] [place] [phone] Ervin Mckeon D.O. [address] [place] [phone] 11/01/2024 2:15 PM CDT Appointment Division of Pulmonary Medicine in [place], [place] [address] [place] [phone] Edgar Montgomery M.B.B.S., M.S. [address] [place] [phone] documented as of this encounter Procedures Procedure Name Priority Date/Time Associated Diagnosis Comments PLACE PERIPHERALLY INSERTED CENTRAL CATHETER (PICC) Routine 09/13/2024 1:00 PM CDT Transplant Liver (HCC) documented in this encounter Results * LDA PICC SINGLE LUMEN (09/13/2024 1:00 PM CDT) Narrative MMODAL - 09/13/2024 1:00 PM CDT Amy Stevenson R.N. 09/13/2024 5:[address] peripherally inserted central catheter (PICC) Performed by: Chhaya Stevens R.N. Authorized by: Noreen Ansari P.A.-C., M.S. Care team members present 1. Chhaya Stevens R.N. 2. Aym Stevenson R.N. PROCEDURE DETAILS Select line: PICC Line type: temporary (non-tunneled, non-implanted) Line size: 3.0 FR Catheter to vein ratio less than 45%: no Adult or Vik/Peds: adult # of lumens: single lumen Type of catheter: power injectable, valved and polyurethane Laterality: left IV location: basilic Optimal site selected: yes Number of insertion attempts: 1 Blood return: yes Placement assistance: ECG guidance Tip verification: ECG Catheter length (cm): 38 Initial exposed catheter (cm): 0 Mid upper arm circumference (cm): 22 All lumens flushed (Document volume in I/O): yes CONSENT Consent obtained: written (Risks, benefits and alternatives were discussed [...] confirmed in a procedural pause. PRE-PROCEDURE DETAILS Indications: Medication/nutrition requiring central access Appropriate hand hygiene, gown, cap, mask, protective eyewear, sterile gloves, skin preparation, sterile drape, and strict aseptic technique were utilized as applicable for the procedure.: yes Site preparation: Chlorhexidine SEDATION / ANESTHESIA Anesthesia method: local infiltration (2 mL) Local infiltrate type: lidocaine POST-PROCEDURE DETAILS Procedure completed successfully: yes Complications: no apparent complications Noreen Ansari P.A.-C. M.S. PROCEDURE/MINOR SURGICAL ORDERABLES Final Result MMODAL NA documented in this encounter Visit Diagnoses Diagnosis Transplant Liver (HCC)- Primary Rejection Graft Acute documented in this encounter Administered Medications Inactive Administered Medications - up to 3 most recent administrations Medication Order MAR Action Action Date Dose Rate Site acetaminophen tablet 650 mg (TylenoL) 650 mg, oral, Once, On Wed09/13/24 at 1530, For 1 doseIndications:Transplant Liver (HCC) Given 09/13/2024 3:07 PM CDT 650 mg acetaminophen tablet 650 mg (TylenoL) 650 mg, oral, As needed, other, reaction to thymo, Starting on Wed09/13/24 at 2043Indications:Transplant Liver (HCC) Given 09/13/2024 8:56 PM CDT 650 mg anti-thymocyte globulin rabbit 75 mg in NaCl 0.9% IVPB (Thymoglobulin) 75 mg (rounded from 68.55 mg = 1.5 mg/kg 45.7 kg Vevay weight), intravenous, at 66.3 mL/hr, Administer over 4 Hours, Once, On Wed09/13/24 at 1730, For 1 dose, DO NOT SHAKE. Use 0.2 to 0.22 micron filter. Central line ONLYIndications:Transplant Liver (HCC) Restarted 09/13/2024 9:40 PM CDT 66.3 mL/hr New Bag 09/13/2024 6:30 PM CDT 41.03 mg 66.3 mL/hr diphenhydrAMINE capsule 25 mg (BenadryL) 25 mg, oral, Once, On Wed09/13/24 at 1530, For 1 doseIndications:Transplant Liver (HCC) Given 09/13/2024 3:06 PM CDT 25 mg famotidine injection 20 mg (Pepcid) 20 mg, intravenous, Once, On Wed09/13/24 at 2130, For 1 doseIndications:Transplant Liver (HCC) Given 09/13/2024 9:11 PM CDT 20 mg LORazepam tablet 2 mg (Ativan) 2 mg, oral, Once, On Wed09/13/24 at 1500, For 1 doseIndications:Transplant Liver (HCC) Given 09/13/2024 3:53 PM CDT 2 m g methylPREDNISolone sod succinate (PF) injection 125 mg (SOLU-MedroL) 125 mg, intravenous, Once, On Wed09/13/24 at 1530, For 1 dose, Activate vial to a final concentration of 62.5 mg/mLIndications:Transplant Liver (HCC) Given 09/13/2024 5:17 PM CDT 125 mg ondansetron (PF) injection 4 mg (Zofran) 4 mg, intravenous, Once, On Wed09/13/24 at 2045, For 1 doseIndications:Transplant Liver (HCC) Given 09/13/2024 8:41 PM CDT 4 mg sodium chloride 0.9 % injection 10-30 mL 10-30 mL, intravenous, As needed, line care, Starting on Wed09/13/24 at 1320, Prior to and following infusion, between multiple consecutive infusions.10 mL to each lumen.Indications:Transplant Liver (HCC) Given 09/13/2024 9:11 PM CDT 10 mL Given 09/13/2024 8:41 PM CDT 10 mL Given 09/13/2024 8:33 PM CDT 10 mL documented in this encounter Additional Health Concerns Infection Onset Date Last Indicated Resolved Time Protective Environment 10/10/2022 10/10/2022 Assessment Noted Time PHQ-9 Depression Total Score: 4 08/12/19 25 3:31 PM CDT documented as of this encounter Care Teams Phone Engineer Relationship Specialty Start Date End Date Ana Red MPAS, P.A.-C. [address] [place], [place] [address]ADI Montoya [phone] PCP - General Internal Medicine 12/01/21 [facility] 08/25/21 documented as of this encounter
--- OUTSIDE RECORDS SUMMARY | 2024-09-15 08:20 | XMS_ITS | Encounter Summary ---
Author Organization [facility] Address [address] [place] [id number] Care Team Providers Care Deburrer Strip Name Role Phone Ana Red P.A.-C. Primary Care Pro vider Encounter Details Date Type Department Care Team (Late st Contact Info) Description 09/15/2024 8:20 AM CDT Lab Department of Infusion Therapy in [place], [place] [address] [place] [phone] Edgar Montgomery M.B.B.S., M.S. [address] [place] [phone] Transplant Liver (HCC) (Primary Dx); Rejection Liver [...] alcohol in about a year or so. [facility] Utilities Answer Date Recorded In the past 12 months has e electric, gas, oil, or water [employer] threatened to shut off services in your [...] often do you attend [facility] or muslim services? Patient declined 02/10/2022 Do you belong [...] Answer Date Recorded PHQ-2 Score 0 08/11/2024 [facility] - [...] your living situation today? I have a [facility] place to live 09/09/2024 Education Answer Date Recorded What is the highest level of school you have completed or the highest degree you have received? Associate degree: occupational, technical, or vocational program 07/16/2021 Comments No Sex and Gender Information Value Date Recorded Sex Assigned at Female 04/12/2021 7:39 PM SIGN POSTER Legal Sex Female 7:53 PM SIGN POSTER Gender Identity Female 04/12/2021 7:39 PM SIGN POSTER Sexual Orientation Straight 04/12/2021 7: 39 PM SIGN POSTER documented as of this encounter Plan of Treatment Upcoming Encounters Date Type Department Care Team (Latest Contact Info) Description 10/05/2024 9:30 AM CDT Appointment Department of Radiology, [facility], in [place], [place] [address] [place] [address] Marisabel Carpenter APRN, C.N.P., D.N.P. [address] [place] [address] 10/05/2024 12:00 PM CDT Appointment Division of Pulmonary Medicine in [place], [place] [address] [place] [address] Edgar Montgomery M.B.B.S., M.S. [address] [place] [phone] 10/05/2024 2:45 PM CDT Infusion Department of Infusion Therapy in [place], [place] [address] [place] [address] Noreen Ansari P.A.-C., M.S. [address] [place] [phone] 10/10/2024 7:50 AM CDT Lab Department of Laboratory Medicine and Pathology, [facility] in [place], [place] [address] [place] [address] Marisabel Carpenter APRN, C.N.P., D.N.P. [address] [place] [phone] 10/10/2024 8:00 AM CDT Lab Department of Laboratory Medicine and Pathology, [facility] in [place], [place] [address] [place] [address] Marisabel Carpenter APRN, C.N.P., D.N.P. [address] [place] [phone] 10/10/2024 8:30 AM CDT Nurse Only [facility] in [place], [place] [address] [place] [address] Marisabel Carpenter APRN, C.N.P., D.N.P. [address] [place] [phone] 10/10/2024 9:20 AM CDT Appointment Department of Radiology, [facility] in [place], [place] [address] [place] [address] Marisabel Carpenter APRN, C.N.P., D.N.P. [address] [place] [phone] 10/10/2024 9:45 AM CDT [place]ment [place] [address] [place] [address] Marisabel Carpenter APRN, Katrin.N.P., D.N.P. [address] [place] [phone] 10/10/2024 1:30 PM CDT Appointment Department of Radiology, [facility] in [place], [place] [address] [place] [address] Marisabel Carpenter APRN, C.N.P., D.N.P. [address] [place] [phone] Discharge Disposition: Home or Self Care 10/10/2024 2:45 PM CDT Appointment Department of Radiology, [facility] in [place], [place] [address] [place] [address] Marisabel Carpenter APRN, C.N.P., D.N.P. [address] [place] [phone] 10/11/2024 8:00 AM CDT Office Visit [facility] in [place], [place] [address] [place] [address] Marisabel Carpenter APRN, C.N.P., D.N.P. [address] [place] [phone] 10/11/2024 11:00 AM CDT Comprehensive Visit [facility] in [place], [place] [address] [place] [address] Sree Devlin M.D. [address] [place] [phone] 10/11/2024 1:00 PM CDT Comprehensive Visit Department of Otorhinolaryngology in [place], [place] [address] [place] [address] Randal Urbano, P.A.-C., M.S. [address] [place] [phone] 10/11/2024 2:00 PM CDT Office Visit [facility] in [place], [place] [address] [place] [address] Hiro Murillo P.A.-C. [address] [place] [phone] 10/11/2024 4:00 PM CDT Comprehensive Visit Department of Dermatology in [place], [place] [address] [place] [phone] Parul Martinez M.D. [address] [place] [phone] 10/12/2024 8:00 AM CDT Telemedicine [facility] in [place], [place] [address] [place] [address] Ervin Mckeon D.O. [address] [place] [phone] 11/01/2024 2:15 PM CDT Appointment Division of Pulmonary Medicine in [place], [place] [address] [place] [phone] Edgar Montgomery M.B.B.S., M.S. [address] [place] [phone] documented as of this encounter Procedures Procedure Name Priority Date/Time Associated Diagnosis Comments CMV DNA DETECT/QUANT, P Routine 09/15/2024 8:57 AM CDT Transplant Liver (HCC) Rejection Liver Transplant (HCC) TACROLIMUS LEVEL, B Routine 09/15/2024 8 :57 AM CDT Transplant Liver (HCC) Rejection Liver Transplant (HCC) PROTHROMBIN TIME (PT), P Routine 09/15/2024 8:57 AM CDT Transplant Liver (HCC) Rejection Liver Transplant (HCC) CBC WITH DIFFERENTIAL, B Routine 09/15/2024 8:57 AM CDT Transplant Liver (HCC) Rejection Liver Transplant (HCC) COMPREHENSIVE METABOLIC PANEL, S/P Routine 09/15/2024 8:57 AM CDT Transplant Liver (HCC) Rejection Liver Transplant (HCC) documented in this encounter Results * (ABNORMAL) Tacrolimus, Trough (09/15/2024 8:57 AM CDT) Tacrolimus, Trough <1.0(L) 5.0-15.0 (Trough) ng/mL 09/15/2024 1:26 PM CDT [facility] Comment: ----ADDITIONAL INFORMATION---- Target steady-state trough concentrations vary depending on the type of transplant, concomitant immunosuppression, clinical/institutional protocols, and time post-transplant. Results should be interpreted in conjunction with this clinical information and any physical signs/symptoms of rejection/toxicity. Testing performed by Liquid Chromatography-Tandem Mass Spectrometry (LC-MS/MS). This test was developed and its performance characteristics determined by [facility] in a manner consistent with CLIA requirements. This test has not been cleared or approved by the U.S. Food and Drug Administration. Blood (Blood, Venous) 09/15/2024 8:57 AM CDT 09/15/2024 10:12 AM CDT Edgar Santillan, M.S. LAB BLOOD NON A DD-ON Final Result Performing Organization Address [facility]/ZIP Co de Phone Number [facility] [address] [place] [address] [facility] [address] [place] [address] [place] [address] * CMV DNA Detect / Quant, Plasma (09/15/2024 8:57 AM CDT) [facility] CMV DNA Detect/Quant, P Undetected Undetected IU/mL 09/16/2024 2:55 PM CDT [facility] Comment: Result in log IU/mL is Undetected. ----ADDITIONAL INFORMATION---- The quantification range of this assay is 35 to 10,000,000 IU/mL (1.54 log to 7.00 log IU/mL). Testing was performed using the john CMV test ([employer] Blood (Blood, Venous) 09/15/2024 8:57 AM CDT 09/15/2024 11:03 AM CDT Edgar Santillan, M.S. LAB MICROBIOLOG Y - BLOOD ORDERABLES Final Result Performing Organization Address [facility]/ZIP Co de Phone Number [facility] [address] [place] [address] [facility] [address] [place] [address] [place] [address] * (ABNORMAL) Prothrombin Time (PT) (09/15/2024 8:57 AM CDT) Pathologist [facility] Prothrombin Time, P 9.1(L) 9.4 - 12.5 sec 09/15/2024 9:27 AM CDT DTL INR 0.8 0.9 - 1.1 09/15/2024 9:27 AM CDT DTL Comment: ----ADDITIONAL INFORMATION---- Standard intensity warfarin therapeutic range: 2.0 to 3.0 High intensity warfarin therapeutic range: 2.5 to 3.5 Blood (Blood, Venous) 09/15/2024 8:57 AM CDT 09/15/2024 9:07 AM CDT Edgar Santana., M.S. LAB BLOOD ADD-O N Final Result [address] [address], [place] [address] * (ABNORMAL) Comprehensive Metabolic Panel (09/15/2024 8:57 AM CDT) Pathologist [facility] Potassium, S 3.6 3.6 - 5.2 mmol/L 09/15/2024 11:22 AM CDT DTL Sodium, S 137 135 - 145 mmol/L 09/15/2024 11:22 AM CDT DTL Chloride, S 102 98 - 107 mmol/L 09/15/2024 11:22 AM CDT DTL Bicarbonate, S 21(L) 22 - 29 mmol/L 09/15/2024 11:22 AM CDT DTL Anion Gap 14 7 - 15 09/15/2024 11:22 AM CDT DTL BUN (Blood Urea Nitrogen), S 13 6 - 21 mg/dL 09/15/2024 11:22 AM CDT DTL Creatinine 0.62 0.59 - 1.04 mg/dL 09/15/2024 11:22 AM CDT DTL Estimated GFR (eGFR) >90 >=60 mL/min/BS A 09/15/2024 11:22 AM CDT DTL Comment: Estimated GFR calculated using the 2020 CKD_EPI creatinine equation. Calcium, Total, S 8.7 8.6 - 10.0 mg/dL 09/15/2024 11:22 AM CDT DTL Glucose, S 342(H) 70 - 140 mg/dL 09/15/2024 11:22 AM CDT DTL Protein, Total, S 6.1(L) 6.3 - 7.9 g/dL 09/15/2024 11:22 AM CDT DTL Albumin, S 4.0 3.5 - 5.0 g/dL 09/15/2024 11:22 AM CDT DTL Aspartate Aminotransferase (AST), S 68(H) 8 - 43 U/L 09/15/2024 11:22 AM CDT DTL Alkaline Phosphatase, S 320(H) 35 - 104 U/L 09/15/2024 11:22 AM CDT DTL Alanine Aminotransferase (ALT), S 170(H) 7 - 45 U/L 09/15/2024 11:22 AM CDT DTL Bilirubin, Total, S 0.9 0.0 - 1.2 mg/dL 09/15/2024 11:22 AM CDT DTL Blood (Blood, Venous) 09/15/2024 8:57 AM CDT 09/15/2024 9:28 AM CDT Edgar CheryB.S., M.S. LAB BLOOD ADD[place] [address], [facility] [address] [place] [address] * (ABNORMAL) CBC with Differential, Blood (09/15/2024 8:57 AM CDT) Hemoglobin 12.6 11.6 - 15.0 g/dL 09/15/2024 9:15 AM CDT DTL Hematocrit 36.0 35.5 - 44.9 % 09/15/2024 9:15 AM CDT DTL Erythrocytes 4.28 3.92 - 5.13 x10(12)/L 09/15/2024 9:15 AM CDT DTL MCV 84.1 78.2 - 97.9 fL 09/15/2024 9:15 AM CDT DTL RBC Distrib Width 11.9(L) 12.2 - 16.1 % 09/15/2024 9:15 AM CDT DTL Platelet Count 231 157 - 371 x10(9)/L 09/15/2024 9:15 AM CDT DTL Leukocytes 3.9 3.4 - 9.6 x10(9)/L 09/15/2024 9:15 AM CDT DTL Neutrophils 3.04 1.56 - 6.45 x10(9)/L 09/15/2024 9:15 AM CDT DHPM Lymphocytes 0.67(L) 0.95 - 3.07 x10(9)/L 09/15/2024 9:15 AM CDT DTL Monocytes 0.15(L) 0.26 - 0.81 x10(9)/L 09/15/2024 9:15 AM CDT DTL Eosinophils 0.05 0.03 - 0.48 x10(9)/L 09/15/2024 9:15 AM CDT DTL Basophils <0.03 0.01 - 0.08 x10(9)/L 09/15/2024 9:15 AM CDT DTL Blood (Blood, Venous) 09/15/2024 8:57 AM CDT 09/15/2024 9:07 AM CDT Edgar DanielS., M.S. LAB BLOOD ADD-O N Final Result [facility] [address] [place] [address], [facility] DTL [facility] [address] [place] [address] DHPM [facility] [address] [place] [address] documented in this encounter Visit Diagnoses Diagnosis Transplant Liver (HCC)- Primary Rejection Liver Transplant (HCC) documented in this encounter Administered Medications Inactive Administered Medications - up to 3 most recent administrations Medication Order MAR Action Action Date Dose Rate Site sodium chloride 0.9 % injection 20-60 mL 20-60 mL, intravenous, As needed, line care, Starting on Wed09/15/24 at 0852, Prior to blood sampling, post blood transfusion or post blood sampling. 20 mL to each lumen.Indications:Transplant Liver (HCC) Given 09/15/2024 8:59 AM CDT 40 mL documented in this encounter Additional Health Concerns Infection Onset Date Last Indicated Resolved Time Protective Environment 10/10/2022 10/10/2022 Assessment Noted Time PHQ-9 Depression Total Score: 4 08/12/19 25 3:31 PM CDT documented as of this encounter Care Teams Deburrer Strip Relationship Specialty Start Date End Date Ana Red MPAS, P.A.-C. [address] [facility] [place] [address] PCP - General Internal Medicine 12/01/21 [facility] 08/25/21 documented as of this encounter
--- OUTSIDE RECORDS SUMMARY | 2024-09-15 10:00 | XMS_ITS | Encounter Summary ---
Author Organization [facility] Address [address] [place] [phone] Care Team Providers Care Cigar Head Piercer Name Role Phone Ana Red P.A.-C. Primary Care Pro vider Reason for Visit * Transplant (Routine) - Closed Specialty Diagnoses / Procedures Referred By Meir lara Referred To Contact Transplant Diagnoses Transplant Liver (HCC) Rejection Liver Transplant (HCC) Edgar Montgomery M.B.B.S., M.S. [address] [place] [phone] Phone: tel: fax: [facility] Referral ID Status Reason Start Date Expiration Date Visits Re quested Visits Authorized [id number] Closed 09/07/2024 03/09/2026 1 1 Encounter Details Date Type Department Care Team (Latest Contact Info) Description 09/15/2024 10:00 AM CDT [facility] [place], [place] [address] [place] [phone] Edgar Montgomery M.B.B.S., M.S. [address] [place] [phone] Miriam Strickland M.D. [address] [place] [address] [phone] Rejection Liver Transplant (HCC) (Primary Dx); Transplant Liver (HCC) Social History Tobacco Use Types Packs/Day Years Used Date Smoking Tobacco: Former Cigarettes 1 - 10/12/2021 Passive Smoke Exposure: Never Smokeless Tobacco: Never Comments:Smoked cigarettes f rom age 18-30 about Alcohol Use Standard Drinks/Week Comments Never 0 (1 standard drink = 0.6 oz pure alcohol) Havent had any alcohol in about a year or so. [facility] Utilities Answer Date Recorded In the past 12 months has e [employer], gas, oil, or water [employer] threatened to shut off services in your [...] any clubs o r organizations such as restorationist groups, unions, fraternal [...] [facility] place to live 09/09/2024 Education Answer Date Recorded What is the highest level of school you have completed or the highest degree you have received? Associate degree: occupational, technical, or vocational program 07/16/2021 Comments No Sex and Gender Information Value Date Recorded Sex Assigned at Female 04/12/2021 7:39 PM [employer] Legal Sex Female 7:53 PM [employer] Gender Identity Female 04/12/2021 7:39 PM [employer] Sexual Orientation Straight 04/12/2021 7: 39 PM [employer] documented as of this encounter Last Filed Vital Signs Vital Sign Reading Time Taken Comments Blood Pressure 109/80 09/15/2024 10:02 AM CDT Pulse 103 09/15/2024 10:02 AM CDT Temperature 36.8 C (98.3 F) 09/15/2024 10:02 AM CDT Respiratory Rate - - Oxygen Saturation - - Inhaled Oxygen Concentration - - Weight 53.9 kg (118 lb 13.3 oz) 025 10:02 AM CDT Height 150.4 cm (4' 11.21) 09/15/2024 10:02 AM CDT Body Mass Index 23.83 09/15/2024 10:02 AM CDT documented in this encounter Progress Notes * Kenny Purdy M.D. - 09/15/2024 10:00 AM CDT Liver Transplant Clinic Follow Up Visit SUBJECTIVE CHIEF COMPLAINT/REASON FOR VISIT follow up HISTORY OF PRESENT ILLNESS Ms. 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 She did not complete her day 5 dose of thymoglobulin on Wednesday because of nausea (please see ITCnotes). She is scheduled for a day 7 dose of thymoglobulin today. She is overall doing quite well and reported improvement of her nausea from before. She is taking Zofran only as needed and was able to tolerate solid foods. She had breakfast for dinner last night with her . They are preparing for their in laws who are visiting them soon and she is excited about it. Her fingersticks have been quite fluctuating. She has a CGM - it was 63 currently, but no hypoglycemic symptoms. She is currently on 4 units novolog and takes as needed insulin additionally with meals. Long acting is 8 units/8 units. She does not know who to contact from diabetes team. Her tacrolimus dose is tacrolimus 3 mg BID (goal 5-8) and she is currently on oral dosing and not sublingual. She takes Creon, but she does not have diarrhea. She is taking hydromorphone 2 mg 1-3x/day. She is also on pregabalin and acetaminophen as well. In terms of pain rehab, she is about to start a new job and is waiting to hear from her new job regarding training days so she can carve time out for painrehab clinic. She takes trazodone for sleep. REVIEW OF SYSTEMS All systems were reviewed and negative with the exception of items noted above. OBJECTIVE PHYSICAL EXAMINATION LMP (LMP Unknown) General: Appears stated age, in no acute distress. HEENT: No scleral icterus Heart: No lower extremity edema. Lungs: Breathing comfortably on room air Abdomen: Soft, nondistended. Nontender Musculoskeletal: No joint swelling or erythema. Skin: No rashes noted. She has tattoos on arms bilaterally. R forearm swelling improving, no redness, slight tenderness Psych: Oriented, answering questions appropriately. 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 Her CD4 and CD3 T-cells on immunophenotyping subsets are not significantly improved. Her ALT continues to improve, which is great news. However, considering delta of improvement of CD4 T-cells is suboptimal, she would need Thymoglobulin today and (considering she did not complete day 5 of Thymoglobulin on Wednesday), we would like her to get additional Thymoglobulin dose on Wednesday prior to her liver biopsy on Wednesday. She has a PICC line now, which will make it easier for infusion administration. We also recommend ondansetron therapy with infusion and discussed this with our transplant pharmacist. - Thymoglobulin today in ITC - Thymoglobulin on Wednesday in ITC - Please note she has PICC line in place - Tacrolimus 3 mg BID (trough 5-8), level today is pending - Continue oral valganciclovir for 12 weeks (end date 12/07/24) - Status post pentamidine 5/8, complete pentamidine monthly for 12 weeks (end date 12/07/24) - She would need additional intermediate manager immunosuppression with tacrolimus once we review liver biopsypost-Thymoglobulin on Wednesday - She needs repeat labs including T cell immunophenotyping on Wednesday when she returns for liver biopsy - She should return to [facility] for post-biopsy visit next Wednesday # Hyperglycemia # Labile blood glucose levels # Chronic pancreatitis, with both exocrine and endocrine insufficiency # Diabetes She has labile glycemic control with significant hyperglycemia 300-400s range which likely worsens with solumedrol dosing as part of Thymoglobulin infusion. We spoke with outpatient endocrinology team who will send her portal message today to have a plan of action for the weekend. They will continue to follow along. We are grateful for their support. # Chronic abdominal pain, controlled, awaiting pain rehab clinic # Chronic nausea and vomiting, well-controlled This is well controlled today and she is improving. She knows the importance of pain rehab clinic program and intends to complete it. # R forearm superficial venous thrombus Improving on exam today. Supportive care with cold compresses. No anticoagulation needed as there is no DVT on US upper extremity. Case was discussed with Dr. Strickland Entire visit time was 30 minutes with over 50% of the time being spent on counseling and/or coordination of care. Oralia Purdy M.D. Transplant Hepatology Fellow, PGY-7 Pager [phone] documented in this encounter Plan of Treatment Upcoming Encounters Date Type Department Care Team (Latest Contact Info) Description 10/05/2024 9:30 AM CDT Appointment Department of Radiology, [facility], in [place], [place] [address] [place] [phone] Marisabel Carpenter APRN, C.N.Frances, D.N.P. [address] [place] [phone] 10/05/2024 12:00 PM CDT Appointment Division of Pulmonary Medicine in [place], [place] [address] [place] [phone] Edgar Montgomery M.B.BSumaS., M.S. [address] [place] [phone] 10/05/2024 2:45 PM CDT Infusion Department of Infusion Therapy in [place], [place] [address] [place] [phone] Noreen Ansari P.A.-C., M.S. [address] [place] [phone] 10/10/2024 7:50 AM CDT Lab Department of Laboratory Medicine and Pathology, [facility] in [place], [place] [address] [place] [phone] Marisabel Carpenter APRN, C.N.PSuma, D.N.P. [address] [place] [phone] 10/10/2024 8:00 AM CDT Lab Department of Laboratory Medicine and Pathology, [facility] in [place], [place] [address] [place] [phone] Marisabel Carpenter APRN, C.N.P., D.N.P. [address] [place] [phone] 10/10/2024 8:30 AM CDT Nurse Only [facility] in [place], [place] [address] [place] [phone] Marisabel Carpenter APRN, C.N.P., D.N.P. [address] [place] [phone] 10/10/2024 9:20 AM CDT Appointment Department of Radiology, [facility] in [place], [place] [address] [place] [phone] Marisabel Carpenter APRN, C.N.P., D.N.P. [address] [place] [phone] 10/10/2024 9:45 AM CDT Appointment Department of Laboratory Medicine and Pathology, [facility] in [place], [place] [address] [place] [phone] Marisabel Carpenter APRN, C.N.PSuma, D.N.P. [address] [place] [phone] 10/10/2024 1:30 PM CDT Appointment Department of Radiology, [facility] in [place], [place] [address] [place] [phone] Marisabel Carpenter APRN, C.N.P., D.N.P. [address] [place] [phone] Discharge Disposition: Home or Self Care 10/10/2024 2:45 PM CDT Appointment Department of Radiology, [facility], in [place], [place] [address] [place] [phone] Marisabel Carpenter APRN, C.N.P., D.N.P. [address] [place] [phone] 10/11/2024 8:00 AM CDT Office Visit [facility] Transplantation and Clinical Regeneration in [place], [place] [address] [place] [phone] Marisabel Carpenter APRN, C.N.P., D.N.P. [address] [place] [phone] 10/11/2024 11:00 AM CDT Comprehensive Visit [facility] Transplantation and Clinical Regeneration in [place], [place] [address] [place] [phone] Sree Devlin M.D. [address] [place] [phone] 10/11/2024 1:00 PM CDT Comprehensive Visit Department of Otorhinolaryngology in [place], [place] [address] [place] [phone] Randal Urbano, P.Silvano.-C., M.S. [address] [place] [phone] 10/11/2024 2:00 PM CDT Office Visit [facility] Transplantation and Clinical Regeneration in [place], [place] [address] [place] [phone] Hiro Murillo P.A.-C. [address] [place] [phone] 10/11/2024 4:00 PM CDT Comprehensive Visit Department of Dermatology in [place], [place] [address] [place] [phone] Parul Martinez M.D. [address] [place] [phone] 10/12/2024 8:00 AM CDT Telemedicine [facility] in [place], [place] [address] [place] [phone] Ervin Mckeon D.O. [address] [place] [phone] 11/01/2024 2:15 PM CDT Appointment Division of Pulmonary Medicine in [place], [place] [address] [place] [phone] Edgar Montgomery M.B.B.S., M.S. [address] [place] [phone] documented as of this encounter Visit Diagnoses Diagnosis Rejection Liver Transplant (HCC)- Primary Transplant Liver (HCC) documented in this encounter Additional Health Concerns Infection Onset Date Last Indicated Resolved Time Protective Environment 10/10/2022 10/10/2022 Assessment Noted Time PHQ-9 Depression Total Score: 4 08/12/19 25 3:31 PM CDT documented as of this encounter Care Teams Cigar Head Piercer Relationship Specialty Start Date End Date Ana Red MPAS, P.A.-C. [address] [place] [phone] PCP - General Internal Medicine 12/01/21 [facility] [place] [facility] 08/25/21 documented as of this encounter
--- OUTSIDE RECORDS SUMMARY | 2024-09-15 11:00 | XMS_ITS | Encounter Summary ---
Author Organization [facility] Address [address] [place] [phone] Care Team Providers Care Nursing Educator Name Role Phone Ana Red P.A.-C. Primary Care Pro vider Reason for Visit * Outpatient (Routine) - Closed Specialty Diagnoses / Procedures Referred By Meir lara Referred To Contact Pharmacy Edgar Montgomery M.B.B.S., M.S. [address] [place] [phone] Phone: tel: fax: [facility] Referral ID Status Reason Start Date Expiration Date Visits Re quested Visits Authorized [id number] Closed 09/08/2024 03/10/2026 1 1 Encounter Details Date Type Department Care Team (Latest Contact Info) Description 09/15/2024 11:00 AM CDT Office Visit Ramirez diaz [facility] in [place], [place] [address] [place] [phone] Edgar Montgomery M.B.B.S., M.S. [address] [place] [phone] Ave Kunh I., Pharm.D., R.Ph., BCPS [address] [place] [phone] Transplant Liver (HCC) [Z94.4] (Primary Dx); Rejection Graft Acute [T86.91] Discharge Disposition: Home or Self Care Social History Tobacco Use Types Packs/Day Years Used Date Smoking Tobacco: Former Cigarettes 1 - 10/12/2021 Passive Smoke Exposure: Never Smokeless Tobacco: Never Comments:Smoked cigarettes f rom age 18-30 about Alcohol Use Standard Drinks/Week Comments Never 0 (1 standard drink = 0.6 oz pure alcohol) Havent had any alcohol in about a year or so. [facility] Utilities Answer Date Recorded In the past 12 months has e Point, gas, oil, or water Enval threatened to shut off services in your [...] How often do you attend chur or hoahaoism services? Patient declined 02/10/2022 Do you belong [...] Answer Date Recorded PHQ-2 Score 0 08/11/2024 [facility] - Occupational [...] living situation today? I have a [facility] [place] place to live 09/09/2024 Education Answer Date Recorded What is the highest level of school you have completed or the highest degree you have received? Associate degree: occupational, technical, or vocational program 07/16/2021 Comments No Sex and Gender Information Value Date Recorded Sex Assigned at Female 04/12/2021 7:39 PM INSURANCE VERIFICATION SPECIALIST Legal Sex Female 7:53 PM INSURANCE VERIFICATION SPECIALIST Gender Identity Female 04/12/2021 7:39 PM INSURANCE VERIFICATION SPECIALIST Sexual Orientation Straight 04/12/2021 7: 39 PM INSURANCE VERIFICATION SPECIALIST documented as of this encounter Consult Notes * Ave Kuhn I., Pharm.D., R.Ph., [facility] - 09/15/2024 11:00 AM CDT Medication Management Services (MMS) SUBJECTIVE Catia Bourgeois is a 34 y.o. female, who is seen by the [facility] Pharmacist for targeted medication review. She was referred by Tyrell Hanson, M.S. per departmental standard of care. Patient does NOT appear cognitively impaired at this visit. Patient was at the visit unaccompaniluzma hodge. The purpose of the visit is: Liver transplant post-rejection medication assessment. The following portions of the patient's history were reviewed and updated as appropriate: Allergies[1], Current Medications[2], Family History[3], Medical History[4], Social History[5] (including tobacco, alcohol and illicit drug use), Surgical History[6], and Problem List[7]. Rejection treatment. Consultation to discuss immunosuppression medications, affirm best administration practices. Transplant Summary Liver Transplant - 10/10/2022 (#1) - [facility] POD: 1 year 11 months Protocols All Organs - Lab Interval Every 2 Weeks Liver Primary [place] Diagnosis Alcoholic Cirrhosis Liver Secondary [place] Diagnosis -- Donor Serologies Recipient Liver Donor (Pre-donation Results) Anti-CMV CMV IgG: Negative Positive CMV IgM: Negative -- CMV Nucleic Acid: Undetected -- EBV IgG EBV VCA IgG: Positive Positive EBV IgM EBV VCA IgM: Negative Not Done Toxoplasma Toxoplasma IgG: Negative Negative Toxoplasma IgG Value: <3 -- Active Patient Thresholds Lab Low High Effective Since Comment Tacrolimus Level 5 8 05/12/2024 2. Pharmacologic Review Liver transplant Rejection treatment: rATG 09/06, 09/07, 09/08; doses scheduled for 09/11 and 09/13 were stopped early due to infusion reaction. Dose scheduled for 09/15 after our visit today and another dose 09/17/24. Immunosuppression: prednisone, tacrolimus Infection prevention: Pentamidine (last given 09/07/24) eventually switch to Bactrim, valganciclovir Pruritus: Cholestyramine GI prophylaxis/GERD: pantoprazole Diabetes: Novolog, Lantus Chronic pancreatitis/ Pancreatic insufficiency: Creon Osteoporosis: vitamin D, teriparatide control: Mirena Anxiety/depression/insomnia/appetitive: Mirtazapine Pain (chronic pancreatitis): Acetaminophen, Voltaren gel, hydromorphone, lidocaine patch, methocarbamol Naloxone available for accidental overdose Nausea: meclizine, prochlorperazine Insomnia: trazodone Allergies: Nasacort Health maintenance: multivitamin Christelle tells me she takes medications as prescribed, but suffers from unpredictable nauseous episodes where she throws up soon after taking her medications. Premedication with ondansetron helps. She takes meds with a small amount of food, but does not believe that is helpful. Spacing out medications seems to help, but would like advice on how best to space out her medications safely with transplant medications. We discussed a miscommunication during a hospital stay where she was told it was OK to open tacrolimus capsules, mix the dose in water, and take it. This and nausea from taking tacrolimus sublingually she attributed to low tacrolimus levels contributing to her rejection. She is cholestyramine from other medications by at least 3 hours. Only taken twice in the past few weeks. BG elevated form steroids. She is following with endocrinology. Otherwise no complaints reported today. 3. Medication Reconciliation Medication list was updated to reflect patient reported usage. Patient denies using medications not on the medication profile. Social History The patient reports that she quit smoking about 2 years ago. Her smoking use included cigarettes. She started smoking about 12 years ago. She has never been exposed to tobacco smoke. She has never used smokeless tobacco. She reports current drug use. Frequency: 5.00 times per week. Drug: Marijuana.She reports that she does not drink alcohol. Past Medical History Medical History[8] Allergies Allergies Allergen Reactions Toradol [Ketorolac] GI intolerance Azithromycin Nausea And Vomiting and GI intolerance Nausea and vomiting Tramadol GI intolerance Nausea and vomiting Resulted labs have been reviewed. ASSESSMENT / PLAN We reviewed medication list and timing of medications. To help with nausea we moved some medications to afternoon administration. I updated the medication grid in [facility] accordingly and printed a copy for Christelle. We discussed tacrolimus and what to do if a nausea/vomiting occurs. I recommended if she sees formed capsules in her emesis, to redose tacrolimus. If she vomits within 30-60 min from taking tacrolimus she still might be losing a fair amount of medication so a partial dose would be OK (like 05/06-05/04 a dose). I advised her to reach out to her customer care coordinator to schedule tacrolimus level if she has several episodes within 1-2 week period. Thymoglobulin treatment extended with an additional dose 09/17 to make up for the missed/partial doses. I added ondansetron 8 mg as a premed to the therapy plan (nausea contributed to prior dose interruption) and reduced methylprednisolone dose to 40 mg after speaking with Dr. Purdy. Per Dr. Purdywe will complete Thymoglobulin treatment and then consider increases to maintenance immunosuppression regimen (azathioprine, mTORi). Patient has plans to follow up with endocrinology to manage BG, likely elevated due to steroids. Patient and/or caregiver(s) expressed understanding of, and agreement with plan of care and was provided a verbal summary of these recommendations. Plan of care was communicated to the care team. Total time spent was 35 minutes, with more than 50% of the time spent on counseling, coordination of care and patient education. MTPs identified: 5. MTPs resolved: 4. Follow-up with pharmacist was not scheduled at this time . [1] Allergies Allergen Reactions Toradol [Ketorolac] GI intolerance Azithromycin Nausea And Vomiting and GI intolerance Nausea and vomiting Tramadol GI intolerance Nausea and vomiting [2] Current Outpatient Medications Medication Sig Dispense Refill acetaminophen (TylenoL 8 Hr) 650 mg ER tablet Take 1 tablet (650 mg total) by mouth 3 (three) timesa day. Typically takes 1 tablet every day in the morning, and two additional doses as needed for pain 90 tablet 11 alcohol swabs (Alcohol Wipes) pads, medicated Use as needed with diabetic supplies 100 each 0 blood glucose control high,low (Accu-Chek Guide L1-L2 Ctrl Shayna) solution Use as directed with diabetes glucose meter to ensure accurate blood glucose testing. 1 each 0 blood sugar diagnostic strips Use to test blood sugar 2 time(s) per day. 100 test 1 blood-glucose meter [facility] Test as directed for diabetes control. 1 each 0 blood-glucose sensor (FreeStyle Kristina 3 Plus Sensor) device Use as directed. Change sensor every 15days 6 each 3 cholecalciferol (Vitamin D3) 50 mcg (2,000 Unit) tablet Take 1 tablet (50 mcg total) by mouth daily. 90 tablet 3 cholestyramine (Questran) 4 gram packet Take 60 mL (1 packet total) by mouth 2 (two) times a day asneeded (itching). Take 3 hours away from other medications 30 packet 1 diclofenac sodium (Voltaren) 1 % gel Apply 2 g topically 4 (four) times a day. Apply to abdomen or other areas of pain. 200 g 3 HYDROmorphone (Dilaudid) 2 mg tablet Take 1 tablet (2 mg total) by mouth every 6 (six) hours Indication: Acute Pain. 10 tablet 0 insulin aspart U-100 (NovoLOG Flexpen U-100 [...] after visit with PCP Wednesday 15 mL 0 insulin glargine 100 unit/mL (3 mL) pen Inject 8 Units under the skin 2 (two) times a day. 15 mL 1 lancets Use 2 (two) times a day. Use as directed for diabetes testing. 100 each 1 levonorgestreL (MIRENA) 21 mcg/24 hours (8 yrs) 52 mg IUD 1 Intra Uterine Device (1 each total) by intrauterine route continuously. Inserted 07/31/2022. 1 each 0 lidocaine 4 % adhesive patch,medicated Place 1 patch on the skin daily. Apply to painful areas. 30 patch 1 bckiji-ldgqwevo-qadppkl (Creon) 12,000-38,000-60,[address] capsule Take 2 capsules (24,000 Units of lipase total) by mouth 3 (three) times a day with meals. 100 capsule 0 meclizine (Antivert) 25 mg tablet Take 1 tablet (25 mg total) by mouth 3 (three) times a day as needed for dizziness. 42 tablet 1 methocarbamoL (Robaxin) 750 mg tablet Take 1 tablet (750 mg total) by mouth 2 (two) times a day. 30tablet 3 mirtazapine (Remeron) 15 mg tablet Take 1 tablet (15 mg total) by mouth at bedtime. 90 tablet 3 multivitamin tablet Take 1 tablet by mouth daily. 30 tablet 3 naloxone (Narcan) 4 mg/actuation nasal spray Administer 1 spray (4 mg total) into one nostril as needed for reversal. Repeat with second device in other nostril after 2-3 minutes if no or minimal response. 2 each 0 ondansetron (Zofran) 8 mg tablet Take 1 tablet (8 mg total) by mouth every 8 (eight) hours as needed for nausea or vomiting. Take a tablet 30 minutes before tacrolimus dose. 90 tablet 0 pantoprazole (Protonix) 40 mg EC tablet Take 1 tablet (40 mg total) by mouth daily before morning meal. 90 tablet 3 pen needle, diabetic (BD Ultra-Fine Short Pen Needle) 31 gauge x 5/16 needle Use as needed for insulin and teriparatide injections. Daily teriparatide, 1-2 times daily long-acting insulin, and 3 times daily short-acting insulin. 200 each 2 [START ON 10/05/2024] pentamidine (Nebupent) 50 mg/mL inhalation solution Inhale 6 mL (300 mg total) every 28 (twenty-eight) days. These are scheduled for 10/05/2024 & 11/01/2024. polyethylene glycol (Miralax) 17 gram powder packet Take 1 packet (17 g total) by mouth daily. Dissolve each 17 g dose in 240 mLs (8 ounces) of beverage. 30 packet 0 predniSONE (Deltasone) 5 mg tablet Take 1 tablet (5 mg total) by mouth daily. 90 tablet 0 pregabalin (Lyrica) 75 mg capsule Take 1 capsule (75 mg total) by mouth 2 (two) times a day. 60 capsule 0 prochlorperazine (Compazine) 10 mg tablet Take 1 tablet (10 mg total) by mouth every 6 (six) hours as needed for nausea or vomiting. 30 tablet 0 sennosides-docusate sodium (Senokot-S) 8.6-50 mg per tablet Take 1 tablet by mouth 2 (two) times a day as needed for constipation. 100 tablet 0 tacrolimus (Prograf) 1 mg capsule Take 4 capsules (4 mg total) by mouth 2 (two) times a day Indications: liver transplant rejection prevention. 720 capsule 3 teriparatide (Forteo) 20 mcg/dose (600mcg/2.4mL) injection Inject 0.08 mL (20 mcg total) under the skin daily. 2.4 mL 11 traZODone (DesyreL) 50 mg tablet TAKE 1 TO 3 TABLETS(50 TO 150 MG) BY MOUTH AT BEDTIME NEEDED FOR SLEEP (Patient taking differently: Take 50 mg by mouth at bedtime as needed for sleep. TAKE 1 TO 3TABLETS(50 TO 150 MG) BY MOUTH AT BEDTIME NEEDED FOR SLEEP) 180 tablet 3 triamcinolone (Nasacort) 55 mcg/actuation nasal spray Administer 2 sprays into each nostril daily. 16.5 mL 11 valGANciclovir (Valcyte) 450 mg tablet Take 2 tablets (900 mg total) by mouth daily with morning meal Indications: Prophylaxis, medical. 176 tablet 0 No current facility-administered medications for this visit. [3] Family History Problem Relation Name Age of Onset Anxiety disorder Mother aPrris Hyperlipidemia Father Roscoe Carias Hypertension Maternal Grandfather Bradley Cespedes Arthritis Maternal Grandfather Bradley Cespedes Asthma Maternal Grandfather Bradley Cespedes Arthritis Maternal Grandmother Desire Cespedes Asthma Maternal Grandmother Desire Mayon Migraines Maternal Grandmother Desire Cespedes Prostate cancer Paternal Grandfather Laureano Carias Diabetes Paternal Grandfather Laureano Carias Seizures Brother Curt Depression Brother Curt Suicide Attempts Brother Curt ADD Brother Curt ADD Brother Ricardo ADD Sister Christina [4] Past Medical History: Diagnosis Date Alcoholic Hepatitis [...] ago [facility] About 4 years ago [5] Social History Tobacco Use Smoking status: Former Current packs/day: 0.00 Types: Cigarettes Start date: 02/12/2012 Quit date: 10/12/2021 Years since quittin.9 Passive exposure: Never Smokeless tobacco: Never Tobacco comments: Smoked cigarettes from age [age] about Vaping Use Vaping status: former use Substance Use Topics Alcohol use: Never Comment: Havent had any alcohol in about a year or so. Drug use: Yes Frequency: 5.0 times per week Types: Marijuana Comment: last marijuana was approx 5/2per pt (edibles) [6] Past Surgical History: Procedure Laterality Date ELBOW SURGERY Left 2018 per patient ESOPHAGOGASTRODUODENOSCOPY N/A 04/02/2022 Procedure: ESOPHAGOGASTRODUODENOSCOPY; Surgeon: Matthew Jerome M.B.BGraeme, MJules; Location: [facility] ESOPHAGOGASTRODUODENOSCOPY N/A 09/27/2022 Procedure: ESOPHAGOGASTRODUODENOSCOPY; Surgeon: Naomie Mueller M.B.BSumaSSuma; Location: [facility] GALLBLADDER SURGERY 10/10/2022 Came out when i had my liver transplant LITHOTRIPSY EXTRACORPOREAL SHOCK WAVE UNILATERAL N/A 12/02/2022 Procedure: Pancreatic LITHOTRIPSY EXTRACORPOREAL SHOCK WAVE UNILATERAL; Surgeon: Juan Casillas M.D., M.P.H.; Location: [facility] OR ORGAN TRANSPLANT 10/10/2022 Liver transplant surgery OTHER SURGICAL HISTORY Unsure Tendon repair surgery and surgery on left elbow. TENDON REPAIR Left left foot per patient TRANSPLANT LIVER - DONOR WITH BACK TABLE PREP LIVER ALLOGRAFT N/A 10/10/2022 Procedure: TRANSPLANT LIVER - DONOR WITH BACK TABLE PREP LIVER ALLOGRAFT; Surgeon: Nataliia Vann M.D.; Location: [facility] OR [7] Patient Active Problem List Diagnosis Anemia Macrocytic [...] And Supporting Structures Lower Abdominal Pain Unspecified Pain Abdominal Chronic Rejection Graft Acute Rejection Liver Transplant (HCC) [8] Past Medical History: Diagnosis Date Alcoholic Hepatitis [...] ago [facility] About 4 years ago documented in this encounter Plan of Treatment Upcoming Encounters Date Type Department Care Team (Latest Contact Info) Description 10/05/2024 9:30 AM CDT Appointment Department of Radiology, [facility], in [place], [place] [address] [place] [phone] Marisabel Carpenter APRN, C.N.P., D.N.P. [address] [place] [phone] 10/05/2024 12:00 PM CDT Appointment Division of Pulmonary Medicine in [place], [place] [address] [place] [address] Edgar Montgomery M.B.B.S., M.S. [address] [place] [phone] 10/05/2024 2:45 PM CDT Infusion Department of Infusion Therapy in [place], [place] [address] [place] [phone] Noreen Ansari P.A.-C., M.S. [address] [place] [phone] 10/10/2024 7:50 AM CDT Lab Department of Laboratory Medicine and Pathology, [facility] in [place], [place] [address] [place] [phone] Marisabel Carpenter APRN, C.N.P., D.N.P. [address] [place] [phone] 10/10/2024 8:00 AM CDT Lab Department of Laboratory Medicine and Pathology, [facility] in [place], [place] [address] [place] [address] Marisabel Carpenter APRN, C.N.P., D.N.P. [address] [place] [phone] 10/10/2024 8:30 AM CDT Nurse Only [facility] [place], [place] [address] [place] [address] Marisabel Carpenter APRN, C.N.P., D.N.P. [address] [place] [phone] 10/10/2024 9:20 AM CDT Appointment Department of Radiology, [facility] in [place], [place] [address] [place] [address] Marisabel Carpenter APRN, C.N.PSuma, D.N.P. [address] [place] [phone] 10/10/2024 9:45 AM CDT Appointment Department of Laboratory Medicine and Pathology, [place], [place] [address] [place] [phone] Marisabel Carpenter APRN, Katrin.N.PSuma, D.N.P. [address] [place] [phone] 10/10/2024 1:30 PM CDT Appointment Department of Radiology, [facility] in [place], [place] [address] [place] [phone] Marisabel Carpenter APRN, C.N.PSuma, D.N.P. [address] [place] [phone] Discharge Disposition: Home or Self Care 10/10/2024 2:45 PM CDT Appointment Department of Radiology, [facility] in [place], [place] [address] [place] [phone] Marisabel Carpenter APRN, C.N.P., D.N.P. [address] [place] [phone] 10/11/2024 8:00 AM CDT [facility] [place], [place] [address] [place] [phone] Marisabel Carpenter APRN, C.N.PSuma, D.N.P. [address] [place] [phone] 10/11/2024 11:00 AM CDT [facility] [place], [place] [address] [place] [phone] Sree Devlin M.D. [address] [place] [phone] 10/11/2024 1:00 PM CDT Comprehensive Visit Department of Otorhinolaryngology in [place], [place] [address] [place] [phone] Randal Urbano P.A.-Katrin., M.S. [address] [place] [phone] 10/11/2024 2:00 PM CDT Office [facility] in [place], [place] [address] [place] [phone] Hiro Murillo P.A.-C. [address] [place] [phone] 10/11/2024 4:00 PM CDT Comprehensive Visit Department of Dermatology in [place], [place] [address] [place] [phone] Parul Martinez M.D. [address] [place] [phone] 10/12/2024 8:00 AM CDT Telemedicine [facility] in [place], [place] [address] [place] [phone] Ervin Mckeon D.O. [address] [place] [phone] 11/01/2024 2:15 PM CDT Appointment Division of Pulmonary Medicine in [place], [place] [address] [place] [address] Edgar Montgomery M.B.B.S., M.S. [address] [place] [phone] documented as of this encounter Visit Diagnoses Diagnosis Transplant Liver (HCC) [Z94.4]- Primary Rejection Graft Acute [T86.91] documented in this encounter Additional Health Concerns Infection Onset Date Last Indicated Resolved Time Protective Environment 10/10/2022 10/10/2022 Assessment Noted Time PHQ-9 Depression Total Score: 4 08/12/19 25 3:31 PM CDT documented as of this encounter Care Teams Nursing Educator Relationship Specialty Start Date End Date Ana Red MPAS, P.A.-C. [address] [place] [phone] PCP - General Internal Medicine 12/01/21 [facility] [place] [facility] 08/25/21 documented as of this encounter
--- OUTSIDE RECORDS SUMMARY | 2024-09-15 13:45 | XMS_ITS | Encounter Summary ---
Author Organization [facility] Address [address] [place] [address] Care Team Providers Care Spooling Supervisor Name Role Phone Ana Red P.A.-C. Primary Care Pro vider Reason for Visit * Reason Comments Outpatient Infusion * Episode Based Medications (Routine) - Closed Specialty Diagnoses / Procedures Referred By Meir lara Referred To Contact Diagnoses Transplant Liver (HCC) Procedures CO ANTITHYMOCYTE GLOBULN RABBIT Noreen Ansari P.A.-Katrin., M.S. [address] [place] [phone] Phone: tel: fax: Noreen Ansari P.Silvano.-Katrin., M.S. [address] [place] [phone] Phone: tel: fax: Referral ID Status Reason Start Date Expiration Date Visits Re quested Visits Authorized [id number] Closed 09/13/2024 05/02/2025 5 5 Encounter Details Date Type Department Care Team (Late st Contact Info) Description 09/15/2024 1:45 PM CDT Infusion Department of Infusion Therapy in [place], [place] [address] [place] [phone] Juan Pete M.D. [address] [place], [place] [phone] Transplant Liver (HCC) (Primary Dx) Discharge Disposition: Home or Self Care Social History Tobacco Use Types Packs/Day Years Used Date Smoking Tobacco: Former Cigarettes 1 - 10/12/2021 Passive Smoke Exposure: Never Smokeless Tobacco: Never Comments:Smoked cigarettes f rom age 18-30 about Alcohol Use Standard Drinks/Week Comments Never 0 (1 standard drink = 0.6 oz pure alcohol) Havent had any alcohol in about a year or so. [facility] Utilities Answer Date Recorded In the past 12 months has e [employer], gas, oil, or water [employer] threatened to shut off services in your [...] Answer Date Recorded PHQ-2 Score 0 08/11/2024 [facility] - Occupational Stress [...] a [facility] place to live 09/09/2024 Education Answer Date Recorded What is the highest level of school you have completed or the highest degree you have received? 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 Legal Sex Female 7:53 PM ROOF TILE LAYER Gender Identity Female 04/12/2021 7:39 PM ROOF TILE LAYER Sexual Orientation Straight 04/12/2021 7: 39 PM ROOF TILE LAYER documented as of this encounter Last Filed Vital Signs Vital Sign Reading Time Taken Comments Blood Pressure 114/88 09/15/2024 7:29 PM CDT Pulse 90 09/15/2024 7:29 PM CDT Temperature 37 C (98.6 F) 09/15/2024 7:29 PM CDT Respiratory Rate 16 09/15/2024 7:29 PM CDT Oxygen Saturation 99% 09/15/2024 7:29 PM CDT Inhaled Oxygen Concentration - - Weight 52.6 kg (115 lb 15.4 oz) 09/15/2024 1:57 PM CDT Height - - Body Mass Index 23.25 09/15/2024 10:02 AM CDT documented in this encounter Plan of Treatment Upcoming Encounters Date Type Department Care Team (Latest Contact Info) Description 10/05/2024 9:30 AM CDT Appointment Department of Radiology, [facility] in [place], [place] [address] [place] [address] Marisabel Carpenter APRN, C.N.P., D.N.P. [address] [place] [phone] 10/05/2024 12:00 PM CDT Appointment Division of Pulmonary Medicine in [place], [place] [address] [place] [phone] Edgar Montgomery M.B.B.S., M.S. [address] [place] [phone] 10/05/2024 2:45 PM CDT Infusion Department of Infusion Therapy in [place], [place] [address] [place] [address] Noreen Ansari P.A.-C., M.S. [address] [place] [address] 10/10/2024 7:50 AM CDT Lab Department of Laboratory Medicine and Pathology, [facility] in [place], [place] [address] [place] [address] Marisabel Carpenter APRN, C.N.P., D.N.P. [address] [place] [phone] 10/10/2024 8:00 AM CDT Lab Department of Laboratory Medicine and Pathology, [facility] in [place], [place] [address] [place] [address] Marisabel Carpenter APRN, C.N.P., D.N.P. [address] [place] [phone] 10/10/2024 8:30 AM CDT Nurse Only Ramirez diaz [facility] in [place], [place] [address] [place] [address] Marisabel Carpenter APRN, C.N.P., D.N.P. [address] [place] [phone] 10/10/2024 9:20 AM CDT Appointment Department of Radiology, [facility] in [place], [place] [address] [place] [address] Marsiabel Carpenter APRN, C.N.P., D.N.P. [address] [place] [phone] 10/10/2024 9:45 AM CDT Appointment Department of Laboratory Medicine and Pathology, [facility] in [place], [place] [address] [place] [address] Marisabel Carpenter APRN, C.N.P., D.N.P. [address] [place] [phone] 10/10/2024 1:30 PM CDT Appointment Department of Radiology, [place], [place] [address] [place] [address] Marisabel Carpenter APRN, C.N.P., D.N.P. [address] [place] [phone] Discharge Disposition: Home or Self Care 10/10/2024 2:45 PM CDT Appointment Department of Radiology, [facility] in [place], [place] [address] [place] [address] Marisabel Carpenter APRN, C.N.P., D.N.P. [address] [place] [phone] 10/11/2024 8:00 AM CDT Office Visit [facility] in [place], [place] [address] [place] [address] Marisabel Carpenter APRN, C.N.P., D.N.P. [address] [place] [phone] 10/11/2024 11:00 AM CDT Comprehensive Visit [facility] in [place], [place] [address] [place] [address] Sree Devlin M.D. [address] [place] [phone] 10/11/2024 1:00 PM CDT Comprehensive Visit Department of Otorhinolaryngology in [place], [place] [address] [place], [place] [phone] Randal Urbano P.A.-C., M.S. [address] [place] [phone] 10/11/2024 2:00 PM CDT Office Visit [facility] in [place], [place] [address] [place], [place] [phone] Hiro Murillo P.A.-C. [address] [place] [phone] 10/11/2024 4:00 PM CDT Comprehensive Visit Department of Dermatology in [place], [place] [address] [place] [phone] Parul Martinez M.D. [address] [place] [phone] 10/12/2024 8:00 AM CDT Telemedicine [facility] [place] [facility] in [place], [place] [address] [place] [phone] Ervin Mckeon D.O. [address] [place] [phone] 11/01/2024 2:15 PM CDT Appointment Division of Pulmonary Medicine in [address] [phone] Edgar Montgomery M.B.B.S., M.S. [address] [place] [phone] documented as of this encounter Visit Diagnoses Diagnosis Transplant Liver (HCC)- Primary documented in this encounter Administered Medications Inactive Administered Medications - up to 3 most recent administrations Medication Order MAR Action Action Date Dose Rate Site acetaminophen tablet 650 mg (TylenoL) 650 mg, oral, As needed, other, reaction to thymo, Starting on Wed09/15/24 at 1415Indications:Transplant Liver (HCC) Given 09/15/2024 2:32 PM CDT 650 mg anti-thymocyte globulin rabbit 75 mg in NaCl 0.9% IVPB (Thymoglobulin) 75 mg (rounded from 78.9 mg = 1.5 mg/kg 52.6 kg), intravenous, at 66.3 mL/hr, Administer over 4 Hours, Once, On Wed09/15/24 at 1445, For 1 dose, DO NOT SHAKE. Use 0.2 to 0.22 micron filter. Central line ONLYIndications:Transplant Liver (HCC) New Bag 09/15/2024 3:08 PM CDT 75 mg 66.3 mL/hr diphenhydrAMINE injection 25 mg (BenadryL) 25 mg, intravenous, Once as needed, Give if patient unable to take oral dose., Starting on Wed09/15/24 at 1415, For 1 doseIndications:Transplant Liver (HCC) Given 09/15/2024 2:35 PM CDT 25 mg methylPREDNISolone sod succinate (PF) injection 125 mg (SOLU-MedroL) 125 mg, intravenous, Once, On Wed09/15/24 at 1445, For 1 dose, Activate vial to a final concentration of 62.5 mg/mLIndications:Transplant Liver (HCC) Given 09/15/2024 2:30 PM CDT 125 mg ondansetron ODT disintegrating tablet 4 mg (Zofran-ODT) 4 mg, oral, Once, On Wed09/15/24 at 1445, For 1 dose, When splitting ODT at bedside, handle with gloves and a pill splitter to prevent moisture contact.Indications:Transplant Liver (HCC) Given 09/15/2024 2:51 PM CDT 4 mg sodium chloride 0.9 % injection 10-30 mL 10-30 mL, intravenous, As needed, line care, Starting on Wed09/15/24 at 1415, Prior to and following infusion, between multiple consecutive infusions.10 mL to each lumen.Indications:Transplant Liver (HCC) Given 09/15/2024 7:24 PM CDT 10 mL Given 09/15/2024 2:36 PM CDT 10 mL Given 09/15/2024 2:34 PM CDT 10 mL documented in this encounter Additional Health Concerns Infection Onset Date Last Indicated Resolved Time Protective Environment 10/10/2022 10/10/2022 Assessment Noted Time PHQ-9 Depression Total Score: 4 08/12/19 25 3:31 PM CDT documented as of this encounter Care Teams Spooling Supervisor Relationship Specialty Start Date End Date Ana Red MPAS, P.A.-C. [address] [place] [phone] PCP - General Internal Medicine 12/01/21 [facility] [place] [facility] 08/25/21 documented as of this encounter
--- OUTSIDE RECORDS SUMMARY | 2024-09-17 14:00 | XMS_ITS | Encounter Summary ---
Author Organization [facility] Address [address] [place] [address] Care Team Providers Care Web Search Evaluator Name Role Phone Ana Red P.A.-C. Primary Care Pro vider Reason for Visit * Reason Comments Outpatient Infusion thymo * Episode Based Medications (Routine) - Closed Specialty Diagnoses / Procedures Referred By Meir lara Referred To Contact Diagnoses Rejection Graft Acute Procedures UT ANTITHYMOCYTE GLOBULN RABBIT Kenny Purdy M.D. [address] [place] [phone] Phone: tel: fax: Kenny Purdy M.D. [address] [place] [phone] Phone: tel: fax: Referral ID Status Reason Start Date Expiration Date Visits Re quested Visits Authorized [id number] Closed 09/17/2024 05/02/2025 1 1 Encounter Details Date Type Department Care Team (Late st Contact Info) Description 09/17/2024 2:00 PM CDT Infusion Department of Infusion Therapy in [place], [place] [address] [place] [phone] Kenny Purdy M.D. [address] [place] [phone] Rejection Graft Acute (Primary Dx); Transplant Liver (HCC) Social History Tobacco Use Types Packs/Day Years Used Date Smoking Tobacco: Former Cigarettes 1 - 10/12/2021 Passive Smoke Exposure: Never Smokeless Tobacco: Never Comments:Smoked cigarettes f rom age 18-30 about Alcohol Use Standard Drinks/Week Comments Never 0 (1 standard drink = 0.6 oz pure alcohol) Havent had any alcohol in about a year or so. [facility] Utilities Answer Date Recorded In the past 12 months has e [employer], gas, oil, or water [facility] threatened to shut off services in your [...] How often do you attend chur or congregation services? Patient declined 02/10/2022 Do you belong [...] Answer Date Recorded PHQ-2 Score 0 08/11/2024 [facility] [...] Sex Assigned at Female 04/12/2021 7:39 PM MANUFACTURING TECHNOLOGY PROFESSOR Legal Sex Female 7:53 PM MANUFACTURING TECHNOLOGY PROFESSOR Gender Identity Female 04/12/2021 7:39 PM MANUFACTURING TECHNOLOGY PROFESSOR Sexual Orientation Straight 04/12/2021 7: 39 PM MANUFACTURING TECHNOLOGY PROFESSOR documented as of this encounter Last Filed Vital Signs Vital Sign Reading Time Taken Comments Blood Pressure 122/79 09/17/2024 7:38 PM CDT Pulse 79 09/17/2024 7:38 PM CDT Temperature 37.2 C (99 F) 09/17/2024 5:07 PM CDT Respiratory Rate 16 09/17/2024 7:38 PM CDT Oxygen Saturation - - Inhaled Oxygen Concentration - - Weight - - Height - - Body Mass Index - - documented in this encounter Progress Notes * Aidee Neves, R.N. - 09/17/2024 2:00 PM CDT Pt complained of nausea, headache and heart pain and requested the Thymoglobulin to be stopped. She received 197mls out of 250mls. VS stable and no complaints of shortness of breath. RN offered to call care team for additional treatment orders/guidance and patient declined and stated no, just stop the medication. documented in this encounter Plan of Treatment Upcoming Encounters Date Type Department Care Team (Latest Contact Info) Description 10/05/2024 9:30 AM CDT Appointment Department of Radiology, [facility], in [place], [place] [address] [place] [phone] Marisabel Carpenter APRN, C.N.P., D.N.P. [address] [place] [phone] 10/05/2024 12:00 PM CDT Appointment Division of Pulmonary Medicine in [place], [place] [address] [place] [address] Edgar Montgomery M.B.B.S., M.S. [address] [place] [phone] 10/05/2024 2:45 PM CDT Infusion Department of Infusion Therapy in [place], [place] [address] [place] [address] Noreen Ansari P.A.-C., M.S. [address] [place] [phone] 10/10/2024 7:50 AM CDT Lab Department of Laboratory Medicine and Pathology, [facility] in [place], [place] [address] [place] [address] Marisabel Carpenter APRN, C.N.P., D.N.P. [address] [place] [phone] 10/10/2024 8:00 AM CDT Lab Department of Laboratory Medicine and Pathology, [facility] in [place], [place] [address] [place] [address] Marisabel Carpenter APRN, C.N.P., D.N.P. [address] [place] [phone] 10/10/2024 8:30 AM CDT [facility] [place], [place] [address] [place] [address] Marisabel Carpenter APRN, C.N.P., D.N.P. [address] [place] [phone] 10/10/2024 9:20 AM CDT Appointment Department of Radiology, [facility] in [place], [place] [address] [place] [address] Marisabel Carpenter APRN, C.N.P., D.N.P. [address] [place] [phone] 10/10/2024 9:45 AM CDT Appointment Department of Laboratory Medicine and Pathology, [place], [place] [address] [place] [address] Marisabel Carpenter APRN, C.N.P., D.N.P. [address] [place] [phone] 10/10/2024 1:30 PM CDT Appointment Department of Radiology, [facility] in [place], [place] [address] [place] [address] Marisabel Carpenter APRN, C.N.P., D.N.P. [address] [place] [phone] Discharge Disposition: Home or Self Care 10/10/2024 2:45 PM CDT Appointment Department of Radiology, [facility] in [place], [place] [address] [place] [address] Marisabel Carpenter APRN, C.N.P., D.N.P. [address] [place] [phone] 10/11/2024 8:00 AM CDT [facility] [place], [place] [address] [place] [phone] Marisabel Carpenter APRN, C.N.P., D.N.P. [address] [place] [phone] 10/11/2024 11:00 AM CDT Comprehensive Visit [facility] in [place], [place] [address] [place] [phone] Sree Devlin M.D. [address] [place] [phone] 10/11/2024 1:00 PM CDT Comprehensive Visit Department of Otorhinolaryngology in [place], [place] [address] [place] [phone] Randal Urbano P.A.-Katrin., M.S. [address] [place] [phone] 10/11/2024 2:00 PM CDT Office Visit [facility] in [place], [place] [address] [place] [phone] Hiro Murillo P.A.-C. [address] [place] [phone] 10/11/2024 4:00 PM CDT Comprehensive Visit Department of Dermatology in [place], [place] [address] [place] [phone] Parul Martinez M.D. [address] [place] [phone] 10/12/2024 8:00 AM CDT Telemedicine [facility] in [place], [place] [address] [place] [phone] Ervin Mckeon D.O. [address] [place] [phone] 11/01/2024 2:15 PM CDT Appointment Division of Pulmonary Medicine in [place], [place] [address] [place] [phone] Edgar Montgomery M.B.B.S., M.S. [address] [place] [address] documented as of this encounter Visit Diagnoses Diagnosis Rejection Graft Acute- Primary Transplant Liver (HCC) documented in this encounter Administered Medications Inactive Administered Medications - up to 3 most recent administrations Medication Order MAR Action Action Date Dose Rate Site acetaminophen tablet 650 mg (TylenoL) 650 mg, oral, Once, On 09/17/24 at 1430, For 1 doseIndications:Rejection Graft Acute Given 09/17/2024 2:17 PM CDT 650 mg anti-thymocyte globulin rabbit 75 mg in NaCl 0.9% IVPB (Thymoglobulin) 75 mg (rounded from 78.9 mg = 1.5 mg/kg 52.6 kg), intravenous, at 44.2 mL/hr, Administer over 6 Hours, Once, On 09/17/24 at 1430, For 1 dose, DO NOT SHAKE. Use 0.2 to 0.22 micron filter. Central line ONLYIndications:Rejecti on Graft Acute Rate/Dose Change 09/17/2024 7:19 PM CDT 66.3 mL/hr New Bag 09/17/2024 3:07 PM CDT 75 mg 44.2 mL/hr diphenhydrAMINE injection 25 mg (BenadryL) 25 mg, intravenous, Once as needed, Give if patient unable to take oral dose., Starting on 09/17/24 at 1411, For 1 doseIndications:Rejection Graft Acute Given 09/17/2024 2:28 PM CDT 25 mg methylPREDNISolone sod succinate (PF) injection 40 mg (SOLU-MedroL) 40 mg, intravenous, Once, On 09/17/24 at 1430, For 1 dose, Activate vial to a final concentration of 40 mg/mLIndications:Rejection Graft Acute Given 09/17/2024 2:22 PM CDT 40 mg ondansetron ODT disintegrating tablet 8 mg (Zofran-ODT) 8 mg, oral, Once, On 09/17/24 at 1430, For 1 doseIndications:Rejection Graft Acute Given 09/17/2024 2:17 PM CDT 8 mg sodium chloride 0.9 % injection 10-30 mL 10-30 mL, intravenous, As needed, line care, Starting on 09/17/24 at 1403, Prior to and following infusion, between multiple consecutive infusions.10 mL to each lumen.Indications:Transplant Liver (HCC) Given 09/17/2024 7:36 PM CDT 10 mL Given 09/17/2024 2:28 PM CDT 10 mL Given 09/17/2024 2:23 PM CDT 20 mL documented in this encounter Additional Health Concerns Infection Onset Date Last Indicated Resolved Time Protective Environment 10/10/2022 10/10/2022 Assessment Noted Time PHQ-9 Depression Total Score: 4 08/12/19 25 3:31 PM CDT documented as of this encounter Care Teams Web Search Evaluator Relationship Specialty Start Date End Date Ana Red MPAS, P.A.-C. [address] [facility] [place] [phone] PCP - General Internal Medicine 12/01/21 [facility] [place] [facility] 08/25/21 documented as of this encounter
--- OUTSIDE RECORDS SUMMARY | 2024-09-18 11:40 | XMS_ITS | Encounter Summary ---
Author Organization [facility] Address [address] [place] [address] Care Team Providers Care Conference Director Name Role Phone Ana Red P.A.-C. Primary Care Pro vider Encounter Details Date Type Department Care Team (Late st Contact Info) Description 09/18/2024 11:40 AM CDT Lab Department of Infusion Therapy in [place], [place] [address] [place] [phone] Kenny Purdy M.D. [address] [place] [phone] Transplant Liver (HCC) (Primary Dx); Rejection Liver Transplant (HCC); Medication Therapy [facility] Not 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 Social History [...] In the past 12 months has e [employer], gas, oil, or water [employer] threatened to shut off services in your [...] How often do you attend formerly [facility] or anglican services? Patient declined 02/10/2022 Do [...] your living situation today? I have a [facility] place to live 09/09/2024 Education Answer Date Recorded What is the highest level of school you have completed or the highest degree you have received? Associate degree: occupational, technical, or vocational program 07/16/2021 Comments No Sex and Gender Information Value Date Recorded Sex Assigned at Female 04/12/2021 7:39 PM [employer] Legal Sex Female 7:53 PM [employer] Gender Identity Female 04/12/2021 7:39 PM [employer] Sexual Orientation Straight 04/12/2021 7: 39 PM DIAMOND S[employer]ER documented as of this encounter Plan of Treatment Upcoming Encounters Date Type Department Care Team (Latest Contact Info) Description 10/05/2024 9:30 AM CDT Appointment Department of Radiology, [facility], in [place], [place] [address] [place] [address] Marisabel Carpenter APRN, C.N.P., D.N.P. [address] [place] [phone] 10/05/2024 12:00 PM CDT Appointment Division of Pulmonary Medicine in [place], [place] [address] [place] [address] Edgar Montgomery M.B.B.S., M.S. [address] [place] [phone] 10/05/2024 2:45 PM CDT Infusion Department of Infusion Therapy in [place], [place] [address] [place] [address] Noreen Ansari P.A.-C., M.S. [address] [place] [phone] 10/10/2024 7:50 AM CDT Lab Department of Laboratory Medicine and Pathology, [facility] in [place], [place] [address] [place] [address] Marisabel Carpenter APRN, C.N.P., D.N.P. [address] [place] [phone] 10/10/2024 8:00 AM CDT Lab Department of Laboratory Medicine and Pathology, [facility] in [place], [place] [address] [place] [address] Marisabel Carpenter APRN, C.N.P., D.N.P. [address] [place] [phone] 10/10/2024 8:30 AM CDT Nurse Only Ramirez [facility] in [place], [place] [address] [place] [address] Marisabel Carpenter APRN, C.N.P., D.N.P. [address] [place] [phone] 10/10/2024 9:20 AM CDT Appointment Department of Radiology, [facility] in [place], [place] [address] [place] [address] Marisabel Carpenter APRN, C.N.P., D.N.P. [address] [place] [phone] 10/10/2024 9:45 AM CDT Appointment Department of Laboratory Medicine and Pathology, [place], [place] [address] [place] [phone] Marisabel Carpenter APRN, C.N.P., D.N.P. [address] [place] [phone] 10/10/2024 1:30 PM CDT Appointment Department of Radiology, [facility] in [place], [place] [address] [place] [address] Marisabel Carpenter APRN, C.N.P., D.N.P. [address] [place] [phone] Discharge Disposition: Home or Self Care 10/10/2024 2:45 PM CDT Appointment Department of Radiology, [facility] in [place], [place] [address] [place] [address] Marisabel Carpenter APRN, C.N.P., D.N.P. [address] [place] [phone] 10/11/2024 8:00 AM CDT Office Visit [facility] in [place], [place] [address] [place] [address] Marisabel Carpenter APRN, LowellNSumaP., D.N.P. [address] [place] [phone] 10/11/2024 11:00 AM CDT Comprehensive Visit [facility] Transplantation and Clinical Regeneration in [place], [place] [address] [place] [address] Sree Devlin M.D. [address] [place] [phone] 10/11/2024 1:00 PM CDT Comprehensive Visit Department of Otorhinolaryngology in [place], [place] [address] [place] [phone] Randal Urbano, P.A.-C., M.S. [address] [place] [phone] 10/11/2024 2:00 PM CDT Office Visit [facility] Transplantation and Clinical Regeneration in [place], [place] [address] [place] [address] Hiro Murillo P.A.-C. [address] [place] [phone] 10/11/2024 4:00 PM CDT Comprehensive Visit Department of Dermatology in [place], [place] [address] [place] [phone] Parul Martinez M.D. [address] [place] [phone] 10/12/2024 8:00 AM CDT Telemedicine [facility] Transplantation and Clinical Regeneration in [place], [place] [address] [place] [phone] Ervin Mckeon D.O. [address] [place] [phone] 11/01/2024 2:15 PM CDT Appointment Division of Pulmonary Medicine in [place], [place] [address] [place] [phone] Edgar Montgomery M.B.BSumaS., M.S. [address] [place] [phone] documented as of this encounter Procedures Procedure Name Priority Date/Time Associated Diagnosis Comments CBC NO CALL BACK, REFLEX T/S Routine 09/18/2024 12:34 PM CDT Transplant Liver (HCC) Rejection Liver Transplant (HCC) T CELL PHENOTYPING, ADVANCED, B Routine 09/18/2024 12:34 PM CDT Transplant Liver (HCC) Rejection Liver Transplant (HCC) TACROLIMUS LEVEL, B Routine 09/18/2024 1 2:34 PM CDT Transplant Liver (HCC) Medication Therapy [facility] Not 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 Rejection Liver Transplant (HCC) PROTHROMBIN TIME (PT), P Routine 09/18/2024 12:34 PM CDT Transplant Liver (HCC) Rejection Liver Transplant (HCC) BILIRUBIN DIRECT, S/P Routine 09/18/2024 12:34 PM CDT Transplant Liver (HCC) Rejection Liver Transplant (HCC) COMPREHENSIVE METABOLIC PANEL, S/P Routine 09/18/2024 12:34 PM CDT Transplant Liver (HCC) Rejection Liver Transplant (HCC) documented in this encounter Results * (ABNORMAL) T-Cell Subsets, Naive, Memory and Activated (09/18/2024 12:34 PM CDT) CD4 (T Cells) 146(L) 365 - 1437 cells/m cL 09/19/2024 11:51 AM CDT SDSC CD8 (T Cells) 403 171 - 846 cells/m cL 09/19/2024 11:51 AM CDT SDSC %CD4+CD45RA+ naive T cells 13 3 - 59 % CD4 09/19/2024 11:51 AM CDT SDSC %CD4+CD62L+CD27+ naive T cells 12 2 - 58 % CD4 09/19/2024 11:51 AM CDT SDSC %CD8+CD45RA+ naive T cells 42 6 - 84 % CD8 09/19/2024 11:51 AM CDT SDSC %CD8+CD62L+CD27+n aive T cells 17 2 - 78 % CD8 09/19/2024 11:51 AM CDT SDSC %CD4+CD45RO+ memory T cells 87(H) 15 - 69 % CD4 09/19/2024 11:51 AM CDT SDSC %CD4+CD62L+CD27+C D45RO+ (Tcm) 61(H) 6 - 47 % CD4 09/19/2024 11:51 AM CDT SDSC %CD4+KL36M-CG84-R D45RO+ (Tem) 7.2 0.7 - 12.0 % CD4 09/19/2024 11:51 AM CDT SDSC %CD8+CD45RO+ memory T cells 58(H) 4 - 49 % CD8 09/19/2024 11:51 AM CDT SDSC %CD8+CD62L+CD27+C D45RO+ (Tcm) 26(H) 1 - 18 % CD8 09/19/2024 11:51 AM CDT SDSC %CD8+HH29G-FD08-X D45RO+ (Tem) 14(H) 0 - 6 % CD8 09/19/2024 11:51 AM CDT SDSC %Activated CD4 T cells (4+CD25+) 7 4 - 26 % CD4 09/19/2024 11:51 AM CDT SDSC %CD4+HLA DR+CD28+ T cells 18(H) 2 - 13 % CD4 09/19/2024 11:51 AM CDT SDSC %CD8+HLA DR+CD28+ T cells 13.7 3.0 - 32.0 % CD8 09/19/2024 11:51 AM CDT SDSC CD4+CD45RA+ naive T cells 19(L) 27 - 833 cells/m cL 09/19/2024 11:51 AM CDT SDSC CD4+CD62L+CD27+ naive T cells 18 11 - 824 cells/m cL 09/19/2024 11:51 AM CDT SDSC CD8+CD45RA+ naive T cells 169 19 - 508 cells/m cL 09/19/2024 11:51 AM CDT SDSC CD8+CD62L+CD27+na gerri T cells 69 5 - 475 cells/m cL 09/19/2024 11:51 AM CDT SDSC CD4+CD45RO+ memory T cells 127(L) 167 - 670 cells/m cL 09/19/2024 11:51 AM CDT SDSC CD4+CD62L+CD27+CD 45RO+ (Tcm) 89 58 - 413 cells/m cL 09/19/2024 11:51 AM CDT SDSC CD4+ED64T-RQ90-PP 45RO+ (Tem) 11 7 - 99 cells/m cL 09/19/2024 11:51 AM CDT SDSC CD8+CD45RO+ memory T cells 234 15 - 275 cells/m 09/19/2024 11:51 AM CDT SDSC CD8+CD62L+CD27+CD 45RO+ (Tcm) 105 6 - 135 cells/m 09/19/2024 11:51 AM CDT SDSC CD8+QH78C-TV74- CD45RO+ (Tem) 56(H) 0 - 36 cells/m 09/19/2024 11:51 AM CDT SDSC Activated CD4 T cells (4+CD25+) 10(L) 30 - 207 cells/m 09/19/2024 11:51 AM CDT SDSC CD4+HLA DR+CD28+ T cells 26 17 - 122 cells/m 09/19/2024 11:51 AM CDT SDSC CD8+HLA DR+CD28+ T cells 55 13 - 155 cells/m 09/19/2024 11:51 AM CDT SDSC Interpretation Significantly decreased total CD4 T cell counts and normal total CD8 T cell counts. Quantitative T cell subset immunophenotyping - naive, memory and activated CD4 and CD8 T cells shows a moderate increase in the percentages of total CD8 memory T cells (CD8+CD45RO+) and CD8 central memory T cells (CD8+CD62L+CD27+CD4 5RO+) (Tcm), and a moderate increase in the percentage and absolute number of CD8 effector memory T cells (CD8+OL84C-KT00-KR8 5RO+) (Tem). There is a moderate increase in the percentages of total CD4 memory T cells (CD4+CD45RO+) and CD4 central memory T cells (CD4+CD62L+CD27+CD4 5RO+) (Tcm). The increase in central memory T cells can be due to recent antigenic exposure; central memory T cells themselves do not mediate effective effector function but can rapidly proliferate and differentiate into effector memory T cells. The increase in the effector memory T cells is suggestive of an ongoing inflammatory and/or infectious process. There is a moderate increase in the percentage of HLADR+CD28+ activated CD4 T cells. 59.3% of the CD8 T cells are HLADR+ (CD8+HLADR+); 13.7% of the HLADR+ CD8 T cells are also CD28+ (CD8+HLADR+CD28+), whereas 45.6% have down-regulated CD28 (CD8+HLADR+CD28-). An increase in HLADR+ T cells indicates an ongoing inflammatory and/or infectious process. The presence of HLADR+CD28- CD8+ T cells could point to persistent antigenic stimulation. The relative distribution (percentage) of all other subsets is within normal limits. There is a decrease in the absolute counts of several CD4 T cell subsets, but their percentage is within normal limits or increased. This is due to the significant decrease in total CD4 T cells. Clinical correlation recommended. Reviewed by: Oliver Mcdonald M.D. 09/19/2024 11:[address] [facility] Comment: ----ADDITIONAL INFORMATION---- This test was developed using an analyte specific reagent. Its performance characteristics were determined by [facility] in a manner consistent with CLIA requirements. This test has not been cleared or approved by the U.S. Food and Drug Administration. Blood (Blood, Venous) 09/18/2024 12:34 PM CDT 09/18/2024 3:07 PM CDT Kenny Purdy M.D. LAB BLOOD ADD-ON Final Result [facility] [address] [place] [id number] [facility] [address] [place] [address] [place] [id number] * Prothrombin Time (PT) (09/18/2024 12:34 PM CDT) Prothrombin Time, P 9.4 9.4 - 12.5 sec 09/18/2024 1:26 PM CDT DT INR 0.9 0.9 - 1.1 09/18/2024 1:26 PM CDT DT Comment: ----ADDITIONAL INFORMATION---- Standard intensity warfarin therapeutic range: 2.0 to 3.0 High intensity warfarin therapeutic range: 2.5 to 3.5 Blood (Blood, Venous) 09/18/2024 12:34 PM CDT 09/18/2024 12:52 PM CDT Kenny Purdy M.D. LAB BLOOD ADD-ON Final Result [facility] [address] [place] [address], [facility] [address] [place] [address] * (ABNORMAL) Tacrolimus, Trough (09/18/2024 12:34 PM CDT) Tacrolimus, Trough <1.0(L) 5.0-15.0 (Trough) ng/mL 09/18/2024 4:[address] [facility] Comment: ----ADDITIONAL INFORMATION---- Target steady-state trough concentrations vary depending on the type of transplant, concomitant immunosuppression, clinical/institutional protocols, and time post-transplant. Results should be interpreted in conjunction with this clinical information and any physical signs/symptoms of rejection/toxicity. Testing performed by Liquid Chromatography-Tandem Mass Spectrometry (LC-MS/MS). This test was developed and its performance characteristics determined by [facility] in a manner consistent with CLIA requirements. This test has not been cleared or approved by the U.S. Food and Drug Administration. Blood (Blood, Venous) 09/18/2024 12:34 PM CDT 09/18/2024 2:46 PM CDT Kenny Purdy M.D. LAB BLOOD NON AD D-ON Final Result [facility] [address] [place] [address] [facility] [address] [place] [address] [place] [address] * (ABNORMAL) Comprehensive Metabolic Panel (09/18/2024 12:34 PM CDT) Potassium, S 3.4(L) 3.6 - 5.2 mmol/L 09/18/2024 1:26 PM CDT DTL Sodium, S 143 135 - 145 mmol/L 09/18/2024 1:26 PM CDT DTL Chloride, S 107 98 - 107 mmol/L 09/18/2024 1:26 PM CDT DTL Bicarbonate, S 24 22 - 29 mmol/L 09/18/2024 1:26 PM CDT DTL Anion Gap 12 7 - 15 09/18/2024 1:26 PM CDT DTL BUN (Blood Urea Nitrogen), S 8 6 - 21 mg/dL 09/18/2024 1:26 PM CDT DTL Creatinine 0.48(L) 0.59 - 1.04 mg/dL 09/18/2024 1:26 PM CDT DTL Estimated GFR (eGFR) >90 >=60 mL/min/BS A 09/18/2024 1:26 PM CDT DTL Comment: Estimated GFR calculated using the 2020 CKD_EPI creatinine equation. Calcium, Total, S 9.2 8.6 - 10.0 mg/dL 09/18/2024 1:26 PM CDT DTL Glucose, S 59(L) 70 - 140 mg/dL 09/18/2024 1:26 PM CDT DTL Protein, Total, S 6.4 6.3 - 7.9 g/dL 09/18/2024 1:26 PM CDT DTL Albumin, S 4.1 3.5 - 5.0 g/dL 09/18/2024 1:26 PM CDT DTL Aspartate Aminotransferase (AST), S 86(H) 8 - 43 U/L 09/18/2024 1:26 PM CDT DTL Alkaline Phosphatase, S 326(H) 35 - 104 U/L 09/18/2024 1:26 PM CDT DTL Alanine Aminotransferase (ALT), S 174(H) 7 - 45 U/L 09/18/2024 1:26 PM CDT DTL Bilirubin, Total, S 1.2 0.0 - 1.2 mg/dL 09/18/2024 1:26 PM CDT DTL Blood (Blood, Venous) 09/18/2024 12:34 PM CDT 09/18/2024 1:02 PM CDT Kenny Purdy M.D. LAB BLOOD ADD-ON Final Result [facility] [address] [place] [address], [facility] [address] [place] [address] * (ABNORMAL) CBC no call back, reflex T/S HGB <8 (09/18/2024 12:34 PM CDT) Hemoglobin 13.2 11.6 - 15.0 g/dL 09/18/2024 1:55 PM CDT DTL Hematocrit 38.2 35.5 - 44.9 % 09/18/2024 1:55 PM CDT DTL Erythrocytes 4.52 3.92 - 5.13 x10(12)/L 09/18/2024 1:55 PM CDT DTL MCV 84.5 78.2 - 97.9 fL 09/18/2024 1:55 PM CDT DTL RBC Distrib Width 12.9 12.2 - 16.1 % 09/18/2024 1:55 PM CDT DTL Platelet Count 231 157 - 371 x10(9)/L 09/18/2024 1:55 PM CDT DTL Leukocytes 7.7 3.4 - 9.6 x10(9)/L 09/18/2024 1:55 PM CDT DTL Neutrophils 6.32 1.56 - 6.45 x10(9)/L 09/18/2024 1:55 PM CDT DHPM Lymphocytes 0.79(L) 0.95 - 3.07 x10(9)/L 09/18/2024 1:55 PM CDT DTL Monocytes 0.45 0.26 - 0.81 x10(9)/L 09/18/2024 1:55 PM CDT DTL Eosinophils 0.09 0.03 - 0.48 x10(9)/L 09/18/2024 1:55 PM CDT DTL Basophils <0.03 0.01 - 0.08 x10(9)/L 09/18/2024 1:55 PM CDT DTL Blood (Blood, Venous) 09/18/2024 12:34 PM CDT 09/18/2024 12:50 PM CDT Kenny Purdy M.D. LAB BLOOD NON AD D-ON Final Result Performing Organization Address [facility]/ZIP Co de Phone Number [facility] [address] [place] [address] * (ABNORMAL) Bilirubin, Direct (09/18/2024 12:34 PM CDT) Bilirubin, Direct, S 0.5(H) 0.0 - 0.3 mg/dL 09/18/2024 1:26 PM CDT DTL Blood (Blood, Venous) 09/18/2024 12:34 PM CDT 09/18/2024 1:02 PM CDT Kenny Purdy M.D. LAB BLOOD ADD-ON Final Result Performing Organization Address [facility]/[place] [address] documented in this encounter Visit Diagnoses Diagnosis Transplant Liver (HCC)- Primary Rejection Liver Transplant (HCC) Medication Therapy [employer] Not 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 documented in this encounter Administered Medications Inactive Administered Medications - up to 3 most recent administrations Medication Order MAR Action Action Date Dose Rate Site sodium chloride 0.9 % injection 20-60 mL 20-60 mL, intravenous, As needed, line care, Starting on 09/18/24 at 1235, Prior to blood sampling, post blood transfusion or post blood sampling. 20 mL to each lumen.Indications:Transplant Liver (HCC) Given 09/18/2024 12:36 PM CDT 20 mL Given 09/18/2024 12:30 PM CDT 20 mL documented in this encounter Additional Health Concerns Infection Onset Date Last Indicated Resolved Time Protective Environment 10/10/2022 10/10/2022 Assessment Noted Time PHQ-9 Depression Total Score: 4 08/12/19 3:31 PM CDT documented as of this encounter Care Teams Conference Director Relationship Specialty Start Date End Date Ana Red MPAS, P.A.-C. [address] [place] [phone] PCP - General Internal Medicine 12/01/21 [facility] 08/25/21 documented as of this encounter
--- OUTSIDE RECORDS SUMMARY | 2024-09-20 15:00 | XMS_ITS | Encounter Summary ---
Author Organization [facility] Address [address] [place] [id number] Care Team Providers Care Show Girl Name Role Phone Ana Red P.A.-C. Primary Care Pro vider Reason for Referral * Transplant (Routine) - Authorized Specialty Diagnoses / Procedures Referred By Contsujata t Referred To Contact Transplant Diagnoses Hyperglycemia Catia Quintana APRN, C.N.P. [address] [place] [phone] Phone: tel: fax: [facility] Referral ID Status Reason Start Date Expiration Date V isits Requested Visits Authorized [id number] Authorized 09/20/2024 03/22/2026 1 1 Scheduling Instructions 2pm phone visit Reason for Visit * Transplant (Routine) - Closed Specialty Diagnoses / Procedures Referred By Contac t Referred To Contact Transplant Diagnoses Hyperglycemia Catia Quintana APRN, C.N.P. [address] [place] [phone] Phone: tel: fax: [facility] Referral ID Status Reason Start Date Expiration Date Visits Re quested Visits Authorized [id number] Closed 05/15/2024 11/14/2025 1 1 Encounter Details Date Type Department Care Team (Late st Contact Info) Description 09/20/2024 3:00 PM CDT Telemedicine [facility] in [place], [place] [address] [place] [address] Catia Quintana APRN, C.N.P. [address] [place] [phone] Nancy Feliz RGabby Hyperglycemia Social History Tobacco Use Types Packs/Day Years Used Date Smoking Tobacco: Former Cigarettes 1 - 10/12/2021 Passive Smoke Exposure: Never Smokeless Tobacco: Never Comments:Smoked cigarettes f rom age 18-30 about Alcohol Use Standard Drinks/Week Comments Never 0 (1 standard drink = 0.6 oz pure alcohol) Havent had any alcohol in about a year or so. [facility] Utilities Answer Date Recorded In the past 12 months has [employer] oil, or water [employer] threatened to shut off services in [...] 02/10/2022 How often do you attend [facility] or [facility]? Patient declined 02/10/2022 Do [...] Answer Date Recorded PHQ-2 Score 0 08/11/2024 [facility] - Occupational Stress Questionnaire Answer Date [...] your living situation today? I have a [facility] place to live 09/09/2024 Education Answer Date Recorded What is the highest level of school you have completed or the highest degree you have received? Associate degree: occupational, technical, or vocational program 07/16/2021 Comments No Sex and Gender Information Value Date Recorded Sex Assigned at Female 04/12/2021 7:39 PM [employer] Legal Sex Female 7:53 PM [employer] Gender Identity Female 04/12/2021 7:39 PM [employer] Sexual Orientation Straight 04/12/2021 7: 39 PM [employer] documented as of this encounter Progress Notes * Nancy Feliz R.N. - 09/20/2024 3:00 PM CDT CHIEF COMPLAINT/REASON FOR VISIT Hyperglycemia INFORMATION DISCUSSED Spoke with Christelle to review current glucose readings for insulin dose adjustment. 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 Plans to have follow up biopsy later this week or early next week per her report. This is not yet scheduled. She continues to have quite a bit of variability in her glucose readings. I did not recommend any changes to her insulin doses today. Asked her to be diligent about charting when she is eating and when she is giving insulin over the next week. She typically eats just two meals a day but this can be something small like humus and pretzels and fruit. We also recently adjusted her correction scale as this seemed to be too aggressive in dropping her low when she used it on its own. Today also discussed striving forconsistency in diet and limiting carbs to just three times during the day only. Transplant: Liver, 2022 Current Steroids: prednisone 5 mg Diabetes History: Diabetes Mellitus Type IIIC Monitoring: Freestyle Kristina 3 Insulin/Diabetes Medications: Lantus 8 units twice daily and Novolog 8 units with meals plus correction of +1 for every 40 > 180 mg/dL PLAN/FOLLOW UP: Phone call visit in one week documented in this encounter Plan of Treatment Upcoming Encounters Date Type Department Care Team (Latest Contact Info) Description 10/05/2024 9:30 AM CDT Appointment Department of Radiology, [facility] in [place], [place] [address] [place] [phone] Marisabel Carpenter APRN, C.N.P., D.N.P. [address] [place] [phone] 10/05/2024 12:00 PM CDT Appointment Division of Pulmonary Medicine in [place], [place] [address] [place] [phone] Edgar Montgomery M.B.B.S., M.S. [address] [place] [phone] 10/05/2024 2:45 PM CDT Infusion Department of Infusion Therapy in [place], [place] [address] [place] [address] Noreen Ansari P.A.-C., M.S. [address] [place] [phone] 10/10/2024 7:50 AM CDT Lab Department of Laboratory Medicine and Pathology, [facility] in [place], [place] [address] [place] [phone] Marisabel Carpenter APRN, C.N.P., D.N.P. [address] [place] [phone] 10/10/2024 8:00 AM CDT Lab Department of Laboratory Medicine and Pathology, [facility] in [place], [place] [address] [place] [address] Marisabel Carpenter APRN, C.N.P., D.N.P. [address] [place] [phone] 10/10/2024 8:30 AM CDT [facility] in [place], [place] [address] [place] [address] Marisabel Carpenter APRN, C.N.P., D.N.P. [address] [place] [phone] 10/10/2024 9:20 AM CDT [facility] [place] [place] [address] [place] [address] Marisabel Carpenter APRN, C.N.P., D.N.P. [address] [place] [phone] 10/10/2024 9:45 AM CDT Appointment Department of Laboratory Medicine and Pathology, [facility] in [place], [place] [address] [place] [address] Marisabel Carpenter APRN, C.N.P., D.N.P. [address] [place] [phone] 10/10/2024 1:30 PM CDT Appointment Department of Radiology, [facility] in [place], [place] [address] [place] [address] Marisabel Carpenter APRN, C.N.P., D.N.P. [address] [place] [phone] Discharge Disposition: Home or Self Care 10/10/2024 2:45 PM CDT Appointment Department of Radiology, [facility], in [place], [place] [address] [place] [address] Marisabel Carpenter APRN, C.N.Frances, D.N.P. [address] [place] [phone] 10/11/2024 8:00 AM CDT [facility] [place], [place] [address] [place] [address] Marisabel Carpenter APRN, C.N.P., D.N.P. [address] [place] [phone] 10/11/2024 11:00 AM CDT [facility] [place], [place] [address] [place] [address] Sree Devlin M.D. [address] [place] [phone] 10/11/2024 1:00 PM CDT Comprehensive Visit Department of Otorhinolaryngology in [place], [place] [address] [place] [phone] Randal Urbano, P.A.-C., M.S. [address] [place] [phone] 10/11/2024 2:00 PM CDT [facility] in [place], [place] [address] [place] [phone] Hiro Murillo P.A.-C. [address] [place] [phone] 10/11/2024 4:00 PM CDT Comprehensive Visit Department of Dermatology in [place], [place] [address] [place] [address] Parul Martinez M.D. [address] [place] [phone] 10/12/2024 8:00 AM CDT Telemedicine [facility] in [place], [place] [address] [place] [phone] Ervin Mckeon D.O. [address] [place] [phone] 11/01/2024 2:15 PM CDT Appointment Division of Pulmonary Medicine in [place], [place] [address] [place] [phone] Edgar Montgomery M.B.B.S., M.S. [address] [place] [phone] Scheduled Referrals Name Type Priority Associated Diagnoses Order Schedule Transplant - Diabetes education consult (clinic) Outpatient Referral Routine Hyperglycemia Expected: 09/29/2024, Expires: 12/21/2025 documented as of this encounter Visit Diagnoses Diagnosis Hyperglycemia documented in this encounter Additional Health Concerns Infection Onset Date Last Indicated Resolved Time Protective Environment 10/10/2022 10/10/2022 Assessment Noted Time PHQ-9 Depression Total Score: 4 08/12/19 25 3:31 PM CDT documented as of this encounter Care Teams Show Girl Relationship Specialty Start Date End Date Ana Red MPAS, P.A.-C. [address] [place] [address] [place] [phone] PCP - General Internal Medicine 12/01/21 [facility] 08/25/21 documented as of this encounter
--- OUTSIDE RECORDS SUMMARY | 2024-09-21 08:21 | XMS_ITS | Encounter Summary ---
Author Organization [facility] Address [address] [place] [address] Care Team Providers Care Liner Checker Name Role Phone Ana eRd P.A.-C. 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 [address] [place] [phone] Phone: tel: fax:[phone] [facility] Referral ID Status Reason Start Date Expiration Date Visits Re quested Visits Authorized [id number] Closed 09/20/2024 12/21/2025 1 1 Encounter Details Date Type Department Care Team (Latest Contact Info) Description 09/21/2024 8:21 AM CDT - 09/21/2024 11:55 AM CDT Hospital Encounter Department of Radiology, [facility] in [place], [place] [address] [place] [address] Kenny Purdy M.D. [address] [place] [address] Transplant Liver (HCC); Rejection Liver Transplant (HCC) Discharge Disposition: Home or Self Care Social History Tobacco Use Types Packs/Day Years Used Date Smoking Tobacco: Former Cigarettes 1 - 10/12/2021 Passive Smoke Exposure: Never Smokeless Tobacco: Never Comments:Smoked cigarettes f rom age 18-30 about Alcohol Use Standard Drinks/Week Comments Never 0 (1 standard drink = 0.6 oz pure alcohol) Havent had any alcohol in about a year or so. [facility] Utilities Answer Date Recorded In the past 12 months has e [employer], gas, oil, or water [employer] threatened to shut off services in your [...] often do you attend chur ch or pentecostalism services? Patient declined 02/10/2022 Do [...] Answer Date Recorded PHQ-2 Score 0 08/11/2024 [facility] - Occupational Stress Questionnaire Answer Date Recorded [...] have a franciscan children's place to live 09/09/2024 Education Answer Date Recorded What is the highest level of school you have completed or the highest degree you have received? Associate degree: occupational, technical, or vocational program 07/16/2021 Comments No Sex and Gender Information Value Date Recorded Sex Assigned at Female 04/12/2021 7:39 PM SYRUP MIXER ASSISTANT Legal Sex Female 7:53 PM SYRUP MIXER ASSISTANT Gender Identity Female 04/12/2021 7:39 PM SYRUP MIXER ASSISTANT Sexual Orientation Straight 04/12/2021 7: 39 PM SYRUP MIXER ASSISTANT documented as of this encounter Last Filed Vital Signs Vital Sign Reading Time Taken Comments Blood Pressure 112/71 09/21/2024 11:39 AM CDT Pulse 102 09/21/2024 11:39 AM CDT Temperature 36.6 C (97.9 F) 09/21/2024 11:39 AM CDT Respiratory Rate 12 09/21/2024 11:39 AM CDT Oxygen Saturation 95% 09/21/2024 11:39 AM CDT Inhaled Oxygen Concentration - - Weight 53.7 kg (118 lb 4.4 oz) 09/21/2024 8:49 A M CDT Height - - Body Mass Index 23.72 09/15/2024 10:02 AM CDT documented in this encounter Discharge Instructions * Discharge Instr - Activity* Almita Benson P.A.-C. - 09/21/2024 9:34 AM CDT If you received sedation: After being sedated, it is common to have lapses of memory, slowed reaction time and impaired judgment. For these reasons, for 24 hours after being sedated: * Do not drive or operate motorized vehicles or equipment. * If you leave the hospital the same day as your procedure, stay within 30 miles of the hospital for one night. Have someone drive you to local lodging or home if within 30 miles. * Have a responsible adult stay with you the first 24 hours. * Do not return to work. * Do not take responsibility for small children or anyone who depends on your care. * Do not use exercise equipment, take part in rough play or in sports. * Do not drink alcoholic beverages. * Do not make important decisions or sign legal documents. Care for the percutaneous biopsy site Keep dressing in place over biopsy site for 24 hours. 24 hours after procedure, it is okay to shower. Remove the dressing and clean and rinse the puncture site gently with soap and water. Reapply a Band-Aid to the biopsy site or leave open to air. Do not submerge puncture site in water such as tub bathing or swimming until completely healed. Do not apply creams or lotions over biopsy sites for one week. Activity: No vigorous activities involving jumping or running for 24 hours. If you had a kidney or liver biopsy, you should limit lifting to < 10 lbs for 1 week. Medications Take all your previously prescribed medications other than blood thinners/ASA) as you normally do unless your physician tells you otherwise. Hold blood thinners for 24 hours. Seeking emergency care Contact your health care provider immediately or seek emergency care for the following symptoms: A temperature of 101 degrees Fahrenheit (38.3 degrees Celsius) or higher Chills Severe abdominal pain Drainage that has blood in it for more than 24 hours. For nonemergent questions or concerns: If you have questions related to the procedure, please contact the [facility] peeler operator ([phone]) and ask to be connected to the non-vascular interventional radiology fellow injection molding operator * Attachments The following attachments cannot be sent through Care Everywhere. * Care Following a Needle Biopsy with Sedation documented in this encounter Medications at Time [...] glucose testing. 1 each 05/15/2024 1:09 PM SYRUP MIXER ASSISTANT 05/15/2024 blood sugar diagnostic strips Use to test blood sugar 2 time(s) per day. 100 test 1 07/04/2024 1:55 PM SYRUP MIXER ASSISTANT 07/04/2024 07/05/19 26 blood-glucose meter misc Test as directed for diabetes control. 1 each 05/15/2024 1:09 PM SYRUP MIXER ASSISTANT 05/15/2024 blood-glucose sensor (FreeStyle Kristina 3 [...] testing. 100 each 1 07/04/2024 1:55 PM SYRUP MIXER ASSISTANT 07/04/2024 levonorgestreL (MIRENA) 21 mcg/24 hours (8 yrs) 52 mg IUD 1 Intra Uterine Device (1 each total) by intrauterine route continuously. Inserted 07/31/2022. 1 each 12/31/2022 lidocaine 4 % adhesive patch,medicated Place 1 patch on the skin daily. Apply to painful areas. 30 patch 1 04/20/2024 vdegzn-zgtqvypc-kd ylase (Creon) 12,000-38,000-60,[address] [...] minimal response. 2 each 04/25/2024 12:55 PM SYRUP MIXER ASSISTANT 04/25/2024 ondansetron (Zofran) 8 mg tabletIndications: Transplant Liver (HCC),Nausea,Medic ation Therapy Mcfp Not 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 Take 1 tablet (8 mg [...] mouth daily. 90 tablet 06/27/2024 5:33 PM SYRUP MIXER ASSISTANT 06/28/2024 pregabalin (Lyrica) 75 mg capsule Take 1 capsule (75 mg total) by mouth 2 (two) times a day. 60 capsule 09/15/2024 7:42 PM CDT 09/08/2024 10/16/19 prochlorperazine (Compazine) 10 mg tablet Take 1 [...] mL 09/09/2024 12:32 PM CDT 09/08/2024 09/26/19 tacrolimus (Prograf) 1 mg capsuleIndications :prevention of liver transplant rejection Take 4 capsules (4 mg total) by mouth 2 (two) times a day Indications: liver transplant rejection prevention. 720 capsule 3 09/09/2024 09/26/19 25 documented as of this encounter Procedure Notes * Sweetie Lynne RSumaN. - 09/21/2024 10:48 AM CDTAssociated Order(s): Perform central apprentice lineman third step: Site care Perform central apprentice lineman third step: Site care Performed by: Sweetie Lynne R.N. Authorized by: Kenny Purdy M.D. Site care completed. documented in this encounter Plan of Treatment Upcoming Encounters Date Type Department Care Team (Latest Contact Info) Description 10/05/2024 9:30 AM CDT Appointment Department of Radiology, [facility], in [place], [place] [address] [place] [phone] Marisabel Carpenter APRN, C.N.P., D.N.P. [address] [place] [address] 10/05/2024 12:00 PM CDT Appointment Division of Pulmonary Medicine in [place], [place] [address] [place] [phone] Edgar Montgomery M.B.B.S., M.S. [address] [place] [phone] 10/05/2024 2:45 PM CDT Infusion Department of Infusion Therapy in [place], [place] [address] [place] [address] Noreen Ansari P.A.-C., M.S. [address] [place] [phone] 10/10/2024 7:50 AM CDT Lab Department of Laboratory Medicine and Pathology, [facility] in [place], [place] [address] [place] [address] Marisabel Carpenter APRN, C.N.P., D.N.P. [address] [place] [phone] 10/10/2024 8:00 AM CDT Lab Department of Laboratory Medicine and Pathology, [facility] in [place], [place] [address] [place] [address] Marisabel Carpenter APRN, C.N.P., D.N.P. [address] [place] [phone] 10/10/2024 8:30 AM CDT Nurse Only Ramirez diaz [facility] in [place], [place] [address] [place] [address] Marisabel Carpenter APRN, C.N.P., D.N.P. [address] [place] [phone] 10/10/2024 9:20 AM CDT Appointment Department of Radiology, [facility] in [place], [place] [address] [place] [address] Marisabel Carpenter APRN, C.N.P., D.N.P. [address] [place] [phone] 10/10/2024 9:45 AM CDT Appointment Department of Laboratory Medicine and Pathology, [facility] in [place], [place] [address] [place] [address] Marisabel Carpenter APRN, C.N.PSuma, D.N.P. [address] [place] [phone] 10/10/2024 1:30 PM CDT Appointment Department of Radiology, [facility] in [place], [place] [address] [place] [address] Marisabel Carpenter APRN, C.N.P., D.N.P. [address] [place] [phone] Discharge Disposition: Home or Self Care 10/10/2024 2:45 PM CDT Appointment Department of Radiology, [facility] in [place], [place] [address] [place] [address] Marisabel Carpenter APRN, C.N.P., D.N.P. [address] [place] [phone] 10/11/2024 8:00 AM CDT [facility] [place], [place] [address] [place] [phone] Marisabel Carpenter APRN, C.N.P., D.N.P. [address] [place] [phone] 10/11/2024 11:00 AM CDT [facility] [place], [place] [address] [place] [phone] Sree Devlin M.D. [address] [place] [phone] 10/11/2024 1:00 PM CDT Comprehensive Visit Department of Otorhinolaryngology in [place], [place] [address] [place] [phone] Randal Urbano P.A.-Katrin., M.S. [address] [place] [phone] 10/11/2024 2:00 PM CDT Office [facility] [place], [place] [address] [place] [phone] Hiro Murillo P.A.-C. [address] [place] [phone] 10/11/2024 4:00 PM CDT Comprehensive Visit Department of Dermatology in [place], [place] [address] [place] [phone] Parul Martinez M.D. [address] [place] [phone] 10/12/2024 8:00 AM CDT Telemedicine [facility] [facility] in [place], [place] [address] [place] [phone] Ervin Mckeon D.O. [address] [place] [phone] 11/01/2024 2:15 PM CDT Appointment Division of Pulmonary Medicine in [place], [place] [address] [place] [phone] Edgar Montgomery M.B.B.S., M.S. [address] [place] [address] documented as of this encounter Procedures Procedure Name Priority Date/Time Associated Diagnosis Comments PERFORM CENTRAL SEMICONDUCTOR ENGINEER Routine 09/21/2024 10:48 AM CDT SURGICAL PATHOLOGY Timed 09/21/2024 9: 54 AM CDT Transplant Liver (HCC) Rejection Liver Transplant (HCC) US LIVER TRANSPLANT BIOPSY RAD - Routine (most inpatients and all outpatients) 09/21/2024 9:52 AM CDT Transplant Liver (HCC) Rejection Liver Transplant (HCC) GLUCOSE POCT, B Routine 09/21/2024 8:57 AM CDT documented in this encounter Results * Perform central apprentice lineman third step: Site care (09/21/2024 10:48 AM CDT) Narrative Sweetie Lynne, R.N. - 09/21/2024 10:48 AM CDT Sweetie Lynne, RSumaN. 09/21/2024 10:48 AM Perform central apprentice lineman third step: Site care Performed by: Sweetie Lynne, RSumaN. Authorized by: Kenny Purdy M.D. Kenny Purdy M.D. PROCEDURE/MINOR SURGICAL ORDERABLES Final Result * Surgical Pathology (09/21/2024 9:54 AM CDT) 09/22/2024 11:31 AM CDT DTL Participated in the Interpretation Randal Marroquin M.D.-Pathology Fellow 09/22/2024 11:31 AM CDT DTL Report electronically signed by Quintin Ferguson M.D. I verify that I have examined all relevant slides/materials for the specimen(s) and rendered or confirmed the diagnosis. 09/22/2024 11:31 AM CDT DTL Gross Description Received in formalin labeled with the patient's name, medical record number, and liver, allograft, parenchymal is a 2.2 x 0.1 x 0.1 cm pacheco-brown soft tissue core. The specimen is bisected and submitted entirely in cassette A1. Grossed by LMB. 09/22/2024 11:31 AM CDT DTL Addendum Glutamine synthetase shows a normal perivenular staining pattern. Keratin 8/18 highlights all hepatocytes. Signed by Sarah Hernandez M.D. 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 Signed by Quintin Ferguson M.D. 09/27/2024 3:19 PM 09/29/2024 10:41 AM CDT DTL Comment:REVISED RESULTS Interpretation FINAL DIAGNOSIS OLT 3632 (1 year 11-1/2 months) Liver, allograft, needle biopsy: Resolving acute cellular rejection. Moderate steatosis. See comment. COMMENT: This liver biopsy specimen is adequate for interpretation, with more than 10 portal tracts available for review. Portal tracts show mild lymphocyte-predom inant inflammatory infiltrate with rare eosinophils. Rare/equivocal foci of lymphocytic cholangitis and endotheliitis are seen. These changes could represent minimal residual/resolvin g acute cellular rejection. The findings in the current sample are improved compared to the last sample from September 05, 2024. In addition, there is moderate macrovesicular steatosis, without definitive features of steatohepatitis. Trichrome stain will be reported in an addendum. Digital imaging was used in the diagnostic assessment of this case. 09/29/2024 10:41 AM CDT DTL Tissue (Liver, Allograft) 09/21/2024 9:54 AM CDT us Kenny Purdy M.D. LAB SURG PATH OR DERABLES Edited Result - Final [facility] [address] [place] [address], [facility] DTL [address] [place] [address] * US Liver Transplant Biopsy (09/21/2024 9:52 AM CDT) Anatomical Region Laterality Modality Abdomen, Ultrasound RST LOS, Ultrasound ARZ LOS, Procedure FLA LOS, Abdominal FLA LOS, Procedural, Procedural NWWI LOS N/A Ultrasound Impressions 09/21/2024 10:03 AM CDT Ultrasound-guided right allograft liver parenchyma biopsy. EP Narrative 09/21/2024 10:03 AM CDT EXAM: US LIVER TRANSPLANT BIOPSY PRE-PROCEDURE: Patient seen and evaluated. Allergies, pertinent medications, and history reviewed. Discussed risks, benefits, alternatives for procedure, and obtained informed consent. Patient understands information and questions answered. Immediately prior to starting the procedure, in the presence of the assisting personnel, procedural pause was conducted to verify correct patient identity and verification of procedure to be performed, and as applicable, correct side and site, correct patient position, availability of implants, special equipment, or special requirements, and all image and specimen identification data. The roles and responsibilities of care team members, residents, and fellows were discussed. Sedation provided by Anesthesiology. TECHNIQUE: Sterile. 1% lidocaine for local anesthesia. Location: Right allograft liver parenchyma. Needle size: 18-gauge Biopince biopsy device. Number of passes: 1 pass. Complication: None. Blood loss: Minimal.. PATIENT INSTRUCTIONS: Patient may be dismissed from the radiology department when dismissal criteria met. POST-PROCEDURE DIAGNOSIS: Ultrasound-guided right liver parenchyma biopsy. Procedure Note Benja Venegas M.D. - 09/21/2024 EXAM: US LIVER TRANSPLANT BIOPSY PRE-PROCEDURE: Patient seen and evaluated. Allergies, pertinentmedications, and history reviewed. Discussed risks, benefits, alternativesfor procedure, and obtained informed consent. Patient understandsinformation and questions answered. Immediately prior to starting the procedure, in the presence of the assistingpersonnel, procedural pause was conducted to verify correct patientidentity and verification of procedure to be performed, and as applicable,correct side and site, correct patient position, availability of implants, special equipment, or specialrequirements, and all image and specimen identification data. The rolesand responsibilities of care team members, residents, and fellows werediscussed. Sedation provided by Anesthesiology. TECHNIQUE: Sterile. 1% lidocaine for local anesthesia. Location: Right allograft liver parenchyma. Needle size: 18-gauge Biopince biopsy device. Number of passes: 1 pass. Complication: None. Blood loss: Minimal.. PATIENT INSTRUCTIONS: Patient may be dismissed from the radiologydepartment when dismissal criteria met. POST-PROCEDURE DIAGNOSIS: Ultrasound-guided right liver parenchymabiopsy. IMPRESSION: Ultrasound-guided right allograft liver parenchyma biopsy. EP us Kenny Purdy M.D. IMG US PROCEDURE S Final Result * (ABNORMAL) Glucose, POCT (09/21/2024 8:57 AM CDT) Glucose, POCT, B 376(H) 70 - 140 mg/dL 09/21/2024 9:03 AM CDT PCLX Site Capillary 09/21/2024 9:03 AM CDT PCLX Blood 09/21/2024 8:57 AM CDT 09/21/2024 9:04 AM CDT us Unknown Provider LAB POCT ORDERABLES-MANUAL Lupe l Result POC [facility] [address] [facility] POC [address] [place] [address] documented in this encounter Visit Diagnoses Diagnosis Transplant Liver (HCC) Rejection Liver Transplant (HCC) documented in this encounter Administered Medications Inactive Administered Medications - up to 3 most recent administrations Medication Order MAR Action Action Date Dose Rate Site fentaNYL injection 25 mcg (Sublimaze) 25 mcg, intravenous, Once as needed, severe pain or score 7-10 of 10, Starting on Luz Marina 09/21/24 at 1012, For 1 dose, For breakthrough pain unrelieved 30 minutes after PRN oral pain medication is used or if unable to take oral pain medication or if pain is greater than or equal to 7, use instead of oral pain medication. granisetron (PF) injection 1 mg (KytriL) 1 mg, intravenous, Once as needed, nausea, vomiting, Starting on Luz Marina 09/21/24 at 1012, For 1 dose, PACU (only), If patient does not respond to ondansetron or haloperidol. (Order of antiemetic administration - ondansetron then haloperidol or droperidol then granisetron) Given 09/21/2024 11:30 AM CDT 1 mg HYDROmorphone (PF) injection 0.5 mg (Dilaudid) 0.5 mg, intravenous, Every 5 min PRN, moderate pain or score 4-6 of 10, severe pain or score 7-10 of 10, Starting on Luz Marina 09/21/24 at 1008, PACU (only), Up to maximum total dose of 4 mg Given 09/21/2024 11:39 AM CDT 0.5 mg Given 09/21/2024 11:28 AM CDT 0.5 mg Given 09/21/2024 11:02 AM CDT 0.5 mg HYDROmorphone tablet 2 mg (Dilaudid) 2 mg, oral, Once, On Luz Marina 09/21/24 at 1045, For 1 dose, Does patient have renal impairment, frailty, or advanced age (avoid morphine) and unable to take oxycodone? No, Did the patient fail other oral opioids during hospitalization? No, Does the patient have documented allergies to oxycodone and/or morphine? No, Is the patient on hydromorphone chronically for pain? Yes Given 09/21/2024 10:20 AM CDT 2 mg lidocaine 10 mg/mL (1 %) injection (Xylocaine) As needed, Starting on Luz Marina 09/21/24 at 0951, Intra-Op Given 09/21/2024 9:51 AM CDT 6 mL Oth er documented in this encounter Active and Recently Administered Medications Times are shown in CDT. Scheduled Medication Order 09/19/2024 09/20/2024 09/21/2024 HYDROmorphone tablet 2 mg (Dilaudid) (COMPLETED) 2 mg, oral, Once, On Luz Marina 09/21/24 at 1045, For 1 dose, Does patient have renal impairment, frailty, or advanced age (avoid morphine) and unable to take oxycodone? No, Did the patient fail other oral opioids during hospitalization? No, Does the patient have documented allergies to oxycodone and/or morphine? No, Is the patient on hydromorphone chronically for pain? Yes 1020 (Given - Provid er: Jacqueline Denise, MEDICAL TRANSPORT SPECIALIST, MOBILE NURSE) PRN Medication Order 09/19/2024 09/20/2024 09/21/2024 dexAMETHasone injection 4 mg (Decadron) 4 mg, intravenous, Once as needed, Nausea and Vomiting, Starting on Luz Marina 09/21/24 at 1012, For 1 dose, PACU (only), Give only if NOT given during the pre or intraoperative period. If ondansetron ordered, give dexamethasone with first dose of ondansetron. dimenhyDRINATE injection 50 mg (Dramamine) 50 mg, intravenous, Once as needed, nausea, Starting on Luz Marina 09/21/24 at 1012, For 1 dose, PACU (only), Dilute 25 mg in 5 mL of 0.9% NS; 50 mg in 10 mL 0.9% NS before administration. fentaNYL injection 25 mcg (Sublimaze) 25 mcg, intravenous, Once as needed, severe pain or score 7-10 of 10, Starting on Luz Marina 09/21/24 at 1012, For 1 dose, For breakthrough pain unrelieved 30 minutes after PRN oral pain medication is used or if unable to take oral pain medication or if pain is greater than or equal to 7, use instead of oral pain medication. fentaNYL injection 25 mcg (Sublimaze) 25 mcg, intravenous, Every 2 min PRN, moderate pain or score 4-6 of 10, severe pain or score 7-10 of 10, Starting on Luz Marina 09/21/24 at 1012, PACU (only), Up to maximum total dose of 200 mcg granisetron (PF) injection 1 mg (KytriL) (COMPLETED) 1 mg, intravenous, Once as needed, nausea, vomiting, Starting on Luz Marina 09/21/24 at 1012, For 1 dose, PACU (only), If patient does not respond to ondansetron or haloperidol. (Order of antiemetic administration - ondansetron then haloperidol or droperidol then granisetron) 1130 (Given - Provid er: Priscilla Reyes R.N.) HYDROmorphone (PF) injection 0.5 mg (Dilaudid) 0.5 mg, intravenous, Every 5 min PRN, moderate pain or score 4-6 of 10, severe pain or score 7-10 of 10, Starting on Luz Marina 09/21/24 at 1008, PACU (only), Up to maximum total dose of 4 mg 1028 (Given - Provid er: Priscilla Reyes R.N.)1102 (Given - Provider: Priscilla Reyes R.N.)1128 (Given - Provider: Priscilla Reyes R.N.)1139 (Given - Provider: Priscilla Reyes R.N.) lidocaine 10 mg/mL (1 %) injection (Xylocaine) (COMPLETED) As needed, Starting on Luz Marina 09/21/24 at 0951, Intra-Op 0951 (Given - Provid er: Hunter Ayala M.D. - Comment: Liver Transplant) ondansetron (PF) injection 4 mg (Zofran) 4 mg, intravenous, Every 6 hours PRN, nausea, vomiting, (If patient has not received in the previous 6 hours), Starting on Luz Marina 09/21/24 at 1012, PACU (only), Administer first. If nausea and vomiting persists, proceed with haloperidol or droperidol. (Order of antiemetic administration - ondansetron then haloperidol or droperidol then granisetron) oxyCODONE IR tablet 5 mg (Roxicodone) 5 mg, oral, Once as needed, For pain 4 or greater, Starting on Luz Marina 09/21/24 at 1012, For 1 dose, PACU (only) documented in this encounter Additional Health Concerns Infection Onset Date Last Indicated Resolved Time Protective Environment 10/10/2022 10/10/2022 Assessment Noted Time PHQ-9 Depression Total Score: 4 08/12/19 25 3:31 PM CDT documented as of this encounter Care Teams Liner Checker Relationship Specialty Start Date End Date Ana Red MPAS, P.A.-C. [address] [place], [place] [address]luzma HERMOSILLOADI WRIGHT [phone] PCP - General Internal Medicine 12/01/21 [facility] 08/25/21 documented as of this encounter
--- OUTSIDE RECORDS SUMMARY | 2024-09-21 09:26 | XMS_ITS | Encounter Summary ---
Author Organization [facility] Address [address] [place] [id number] Care Team Providers Care Custom Tailor Name Role Phone Ana Red P.A.-C. Primary Care Pro vider Encounter Details Date Type Department Care Team (Late st Contact Info) Description 09/21/2024 9:26 AM CDT Anesthesia Event Department of Radiology, [facility] in [place], [place] [address] [place] [phone] Jacqueline Denise APRN, CRNA [address] [place] [phone] Anesthesia Record Procedure Summary Procedure Name Responsible Anesthesiologist Anesthesia Start Time Anesthesia Stop Time US LIVER TRANSPLANT BIOPSY Jacqueline Denise APRN, CRNA 09/21/24 0926 09/21/24 1007 Events Date Time Event Comment 09/21/2024 0926 An Start Machine/Equipme nt Checked Infection Precautions Followed Procedure/Site Verified NPO Status Verified Supine Standard ASA Monitors Applied 0932 Turnover to Proceduralist 0940 Anesthesia Time Out 0947 Proc Start 0952 Proc Fin 0953 Turnover to ANE Staff 0955 an stop data 1007 An End I completed my handoff to the receiving staff during which we 1. Identified the patient 2. Identified the responsible provider 3. Reviewed the pertinent medical history 4. Discussed the surgical course 5. Reviewed intra-op anesthesia management and issues during anesthesia 6. Set expectations for post-procedure period 7. Allowed opportunity for questions and acknowledgement of understanding. Meds Name Total fentaNYL PF injection 50 mcg/mL 100 mcg ondansetron PF 4 mg/2 mL injection 4 mg propofol 10 mg/mL injection 80 mg propofol 10 mg/mL infusion 166.47 mg ePHEDrine PF 5 mg/mL syringe injection 5 mg phenylephrine (Vik-Synephrine) injection 1 mg/10 mL syringe 100 mcg HYDROmorphone (Dilaudid) PF injection 2 mg/mL 2 mg Lactated Ringers Free Drip 150 mL * Agents No agents on file. * Blood No blood administrations on file. Lines, Drains, and Airways Type Details Placement Removal PICC Single Lumen Placement Date: 08/31 08/25; Placement Time: 1701 (created via procedure documentation); Cath Out Checklist Completed: Yes; Size: 3.0 Fr; Length: 38 cm; Orientation: Left; Location: Basilic; Site Prep: Chlorhexidine (Preferred); Local Anesth: Intradermal lidocaine (2 mL); Initial Extremity Circumference: 22 cm; Initial Exposed Catheter: 0 cm; Inserted By: Lowell Stevens RN; Insertion Attempts: 1; Placement Verification: ECG guidance, Blood return, Ultrasound 09/13/24 1702 by Chhaya Stevens, R.N. Wound 09/21/24; 0948; N; Puncture; Abdomen; Right; Liver Transplant Biopsy Site 09/21/24 0948 by Shameka Funez R Wound 09/05/24; 1431; N; 09/05/24; Puncture; Abdomen; Lateral, Right, Upper, Quadrant; Liver Bx; 09/21/24; 0900; old LDA 09/05/24 1431 by Effie Acosta, R.NSuma 09/21/24 0900 by Nico Hanson, R.N. documented [...] so. [facility] Utilities Answer Date Recorded In the past 12 months has th e electric, gas, oil, or water RESAAS threatened to shut off services in your home? No 09/23/2024 Humiliation, Afraid, Rape, and Kick questionnair e Answer Date Recorded Within the last year, have y ou been afraid of your partner or ex-partner? No 09/23/2024 Within the last year, have y ou been humiliated or emotionally abused in other ways by your partner or ex-partner? No Within the last year, have y ou been kicked, hit, slapped, or otherwise physically hurt by your partner or ex-partner? No 09/23/2024 Within the last year, have y ou been raped or forced to have any kind of sexual activity by your partner or ex-partner? No 09/23/2024 Social Connection and Isolat ion Panel [NHANES] [...] the money to buy more. Never true 09/24/19 25 Within the past 12 months, t he food you bought just didn't last and you didn't have money to get more. Never true 09/23/2024 PRAPARE - Transportation Answer Date Re corded In the past 12 months, has l ack of transportation kept you from medical appointments or from getting medications? No 09/01 In the past 12 months, has l ack of transportation kept you from meetings, work, or from getting things needed for daily living? No 09/23/2024 Depression Answer Date Recor ded PHQ-9 Total [...] your living situation today? [facility] 09/23/2024 Education Answer Date Recorded What is the highest level of school you have completed or the highest degree you have received? Associate degree: occupational, technical, or vocational program 07/16/2021 Comments No Sex and Gender Information Value Date Recorded Sex Assigned at Female 04/12/2021 7:39 PM PRODUCTION ENGINEER Legal Sex Female 7:53 PM PRODUCTION ENGINEER Gender Identity Female 04/12/2021 7:39 PM PRODUCTION ENGINEER Sexual Orientation Straight 04/12/2021 7: 39 PM PRODUCTION ENGINEER documented as of this encounter OR Notes * Anesthesia Postprocedure Evaluation - Howie, Jacqueline R, MULTI CARE TECHNICIAN, INSIDE ACCOUNT EXECUTIVE - 09/21/2024 12:30 PM CDT Patient: Catia Brunson Procedure Summary Date: 09/21/24 [place] Anesthesia Start: 09 Anesthesia Stop: 1007 Procedure: US LIVER TRANSPLANT BIOPSY Diagnosis: Transplant Liver (HCC) Rejection Liver Transplant (HCC) Transplant Liver (HCC) 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 Responsible Provider: Jacqueline Denise APRN, CRNA Anesthesia Type: MAC ASA Status: 3 Anesthesia Type: MAC Last vitals Vitals Value Taken Time BP 112/71 09/21/24 11:39 Temp 36.6 ??C 09/21/24 11:39 Pulse 102 09/21/24 11:39 Resp 12 09/21/24 11:39 SpO2 95 % 09/21/24 11:39 Please reference Vitals flowsheet for most recent [...] events documented. * Anesthesia Preprocedure Evaluation - Xavi Nassar M.D., M.S. - 09/21/2024 9:08 AM CDT Preprocedure Anesthesia & H&P Assessment Procedure Summary Date/Time: 09/21/24929 Procedure: US LIVER TRANSPLANT BIOPSY Diagnosis: Transplant Liver (HCC) [Z94.4] Rejection Liver Transplant (HCC) [T86.41] Transplant Liver (HCC) [Z94.4] Rejection Liver Transplant (HCC) [T86.41] Indications: s/p OLT with rejection Location: Department of Radiology, [facility], in [place], [place] Pertinent components of the patient's history including current problem list, medical history, surgical history, family history, social history, medications and allergies were reviewed. Present illness and pre-op diagnosis were confirmed. The planned surgery / procedure was verified with the patient / legal guardian. The patient's general health condition remains unchanged RELEVANT COMORBID CONDITIONS CV (+) Patent Foramen Ovale (HCC) GI (+) End Stage Liver Disease [...] Disorder (Dependence) Drug Cannabis Remission (HCC) (+) Rejection Liver Transplant (HCC) (+) Transplant Liver (HCC) OBJECTIVE PHYSICAL EXAMINATION Airway (HEENT) Mallampati: II Cardiovascular Cardiovascular Assessment: cardiovascular normal Pulmonary Pulmonary Assessment: Non labored General / Constitutional Constitutional Assessment: Normal ASSESSMENT / PLAN ANESTHESIA PLAN ASA: 3 Anesthesia Plan: MAC Patient seen and allergies reviewed, anesthesia plan and risks discussed directly with patient /legal guardian or through an enterprise manager. Risks/Benefits/Alternatives of Blood transfusion discussed with patient [...] of Radiology, [facility], in [place], [place] [address] [place] [phone] Marisabel Carpenter APRN, C.N.P., D.N.P. [address] [place] [address] 10/05/2024 12:00 PM CDT Appointment Division of Pulmonary Medicine in [place], [place] [address] [place] [address] Edgar Montgomery M.B.B.S., M.S. [address] [place] [phone] 10/05/2024 2:45 PM CDT Infusion Department of Infusion Therapy in [place], [place] [address] [place] [phone] Noreen Ansari P.A.-C., M.S. [address] [place] [phone] 10/10/2024 7:50 AM CDT Lab Department of Laboratory Medicine and Pathology, [facility] in [place], [place] [address] [place] [address] Marisabel Carpenter APRN, C.N.P., D.N.P. [address] [place] [phone] 10/10/2024 8:00 AM CDT Lab Department of Laboratory Medicine and Pathology, [facility] in [place], [place] [address] [place] [address] Marisabel Carpenter APRN, C.N.P., D.N.P. [address] [place] [phone] 10/10/2024 8:30 AM CDT Nurse Only [facility] in [place], [place] [address] [place] [phone] Marisabel Carpenter APRN, C.N.P., D.N.P. [address] [place] [phone] 10/10/2024 9:20 AM CDT Appointment Department of Radiology, [facility] in [place], [place] [address] [place] [address] Marisabel Carpenter APRN, C.N.PSuma, D.N.P. [address] [place] [phone] 10/10/2024 9:45 AM CDT Appointment Department of Laboratory Medicine and Pathology, [place], [place] [address] [place] [address] Marisabel Carpenter APRN, Katrin.N.PSuma, D.N.P. [address] [place] [phone] 10/10/2024 1:30 PM CDT Appointment Department of Radiology, [facility] in [place], [place] [address] [place] [address] Marisabel Carpenter APRN, Katrin.N.PSuma, D.N.P. [address] [place] [phone] Discharge Disposition: Home or Self Care 10/10/2024 2:45 PM CDT Appointment Department of Radiology, [facility] in [place], [place] [address] [place] [address] Marisabel Carpenter APRN, C.N.PSuma, D.N.P. [address] [place] [phone] 10/11/2024 8:00 AM CDT Office Visit [facility] in [place], [place] [address] [place] [phone] Marisabel Carpenter APRN, C.N.PSuma, D.N.P. [address] [place] [phone] 10/11/2024 11:00 AM CDT [facility] [place], [place] [address] [place] [phone] Sree Devlin M.D. [address] [place] [phone] 10/11/2024 1:00 PM CDT Comprehensive Visit Department of Otorhinolaryngology in [place], [place] [address] [place] [phone] Randal Urbano P.A.-Katrin., M.S. [address] [place] [phone] 10/11/2024 2:00 PM CDT [facility] in [place], [place] [address] [place] [phone] Hiro Murillo P.A.-C. [address] [place] [phone] 10/11/2024 4:00 PM CDT Comprehensive Visit Department of Dermatology in [place], [place] [address] [place] [phone] Parul Martinez M.D. [address] [place] [phone] 10/12/2024 8:00 AM CDT Telemedicine [facility] in [place], [place] [address] [place] [phone] Ervin Mckeon D.O. [address] [place] [phone] 11/01/2024 2:15 PM CDT Appointment Division of Pulmonary Medicine in [place], [place] [address] [place] [address] Edgar Montgomery M.B.B.S., M.S. 200 [place] [phone] documented as of this encounter Visit Diagnoses Not on filedocumented in this encounter Administered Medications Inactive Administered Medications - up to 3 most recent administrations Medication Order MAR Action Action Date Dose Rate Site ePHEDrine (PF) injection intravenous, As needed, Starting on Luz Marina 09/21/24 at 0940, Anesthesia Intra-op Given 09/21/2024 9:40 AM CDT 5 mg fentaNYL injection (Sublimaze) intravenous, As needed, Starting on [facility] 09/21/24 at 0932, Anesthesia Intra-op Given 09/21/2024 9:34 AM CDT 50 mcg Given 09/21/2024 9:32 AM CDT 50 mcg HYDROmorphone (PF) injection (Dilaudid) intravenous, As needed, Starting on [facility] 09/21/24 at 1000, Anesthesia Intra-op Given 09/21/2024 10:03 AM CDT 1 mg Given 09/21/2024 10:00 AM CDT 1 mg Lactated Ringer's intravenous, Continuous Infusion: Per Instructions PRN, Starting on Luz Marina 09/21/24 at 0932, Anesthesia Intra-op New Bag 09/21/2024 9:32 AM CDT ondansetron (PF) injection (Zofran) intravenous, As needed, Starting on Luz Marina 09/21/24 at 0932, Anesthesia Intra-op Given 09/21/2024 9:32 AM CDT 4 mg phenylephrine injection intravenous, As needed, Starting on Luz Marina 09/21/24 at 0943, Anesthesia Intra-op Given 09/21/2024 9:43 AM CDT 100 mcg propofol 10 mg/mL infusion (Diprivan) intravenous, Continuous Infusion: Per Instructions PRN, Starting on Luz Marina 09/21/24 at 0932, Anesthesia Intra-op Rate/Dose Change 09/21/2024 9:38 AM CDT 200 mcg/kg/min 64.44 mL/hr New Bag 09/21/2024 9:32 AM CDT 150 mcg/kg/min 48.33 mL/ hr propofoL injection (Diprivan) intravenous, As needed, Starting on Luz Marina 09/21/24 at 0934, Anesthesia Intra-op Given 09/21/2024 9:37 AM CDT 30 mg Given 09/21/2024 9:34 AM CDT 50 mg documented in this encounter Additional Health Concerns Infection Onset Date Last Indicated Resolved Time Protective Environment 10/10/2022 10/10/2022 Assessment Noted Time PHQ-9 Depression Total Score: 4 08/12/19 25 3:31 PM CDT documented as of this encounter Care Teams Custom Tailor Relationship Specialty Start Date End Date Ana Red MPAS, P.A.-C. [address] [place] [address] ADI Chua [phone] PCP - General Internal Medicine 12/01/21 [facility] 08/25/21 documented as of this encounter
--- OUTSIDE RECORDS SUMMARY | 2024-09-22 20:23 | XMS_ITS | Encounter Summary ---
Author Organization [facility] Address [address] [place] [id number] Care Team Providers Care Network Administrator Name Role Phone Ana Red P.A.-C. Primary Care Pro vider Reason for Visit * Auth/Cert (Routine) Specialty Diagnoses / Procedures Referred By Meir lara Referred To Contact Diagnoses Abdominal Pain Procedures INPT Referral ID Status Reason Start Date Expiration Date Visits Re quested Visits Authorized [id number] 1 1 Encounter Details Date Type Department Care Team (Latest Contact Info) Description 09/22/2024 8:23 PM CDT - 09/26/2024 2:20 PM CDT Hospital Encounter [facility], Tenth Floor [address] [place] [id number] Sree Sena M.D. [address] [place] [phone] Roseline Byrnes M.B.BSumaSSuma [address] [place] [phone] Transplant Liver (HCC) (Primary Dx); Rejection Graft Acute; Medication Therapy Human Resources Hr Generalist Not 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; Rejection Liver Transplant (HCC) Discharge Disposition: Home [...] about a year or so. [facility] Utilities Answer Date Recorded In the past 12 months has e [employer], gas, oil, or water [employer] threatened to shut off services in your [...] 02/10/2022 How often do you attend [facility] or confucianism services? Patient declined 02/10/2022 Do you belong to any clubs o r organizations such as anglican groups, unions, fraternal [...] Answer Date Recorded PHQ-2 Score 0 08/11/2024 [facility] [...] have a [facility] place to live 09/23/2024 Education Answer Date Recorded What is the highest level of school you have completed or the highest degree you have received? Associate degree: occupational, technical, or vocational program 07/16/2021 Comments No Sex and Gender Information Value Date Recorded Sex Assigned at Female 04/12/2021 7:39 PM ACTIVITY DIRECTOR Legal Sex Female 7:53 PM ACTIVITY DIRECTOR Gender Identity Female 04/12/2021 7:39 PM ACTIVITY DIRECTOR Sexual Orientation Straight 04/12/2021 7: 39 PM ACTIVITY DIRECTOR documented as of this encounter Last Filed Vital Signs Vital Sign Reading Time Taken Comments Blood Pressure 123/97 09/26/2024 2:00 PM CDT Pulse 98 09/26/2024 2:00 PM CDT Temperature 36.5 C (97.7 F) 09/26/2024 2:00 PM CDT Respiratory Rate 16 09/26/2024 2:00 PM CDT Oxygen Saturation 99% 09/26/2024 2:00 PM CDT Inhaled Oxygen Concentration - - Weight 54 kg (119 lb 0.8 oz) 09/22/2024 8:33 PM CDT Height 150.4 cm (4' 11.21) 09/22/2024 8:33 PM C DT Body Mass Index 23.87 09/22/2024 8:33 PM CDT documented in this encounter Discharge Summaries * Gerard King M.D. - 09/26/2024 12:34 PM CDT DISCHARGE SUMMARY BRIEF OVERVIEW Hospital: [facility] Discharge Provider: Roseline Byrnes M.B.BSumaSSuma Primary Team: [facility] Liver Transplant Primary Care Providers: Ana Red MPAS, P.A.-CSuma (General) [address] [place] [phone] Primary Care Provider Primary Care Provider Other Providers: None Admission Date: 09/22/2024 Discharge Date: 09/26/2024 PRINCIPAL DIAGNOSIS Abdominal Pain SECONDARY DIAGNOSES Principal Problem: Abdominal Pain Active Problems: Diabetes Mellitus Drug Or Chemical Induced With Hyperglycemia (HCC) Resolved Problems: * No resolved hospital problems. * DISCHARGE DISPOSITION Home or Self Care [1] ACTIVE ISSUES REQUIRING FOLLOW UP We be initiating belatacept for immunosuppression. Day 1 of therapy was given on 09/25/2024. She will require repeat dosing on day 14 (10/09), day 28 (10/23), and on day 42 (11/06) and 56 (11/20). Dosing will then be given every 28 days. CNI dosing will need to be adjusted at these time points, anticipatefully discontinuing tacrolimus on 10/23. Protocol is included below. Insurance approval for outpatient infusions will be required. CNI Conversion Protocol Post-Start Day Date Belatacept Dose CNI Dose 0 (week 0) 09/25/2024 5 mg/kg 100% baseline 14 (week 2) 10/09/2024 5 mg/kg 40-60% baseline; 25% baseline on week 3 28 (week 4) 10/23/2024 5 mg/kg Discontinue 42 (week 6) 11/06/2024 5 mg/kg 56 (week 8) 11/20/2024 5 mg/kg Every 28 days thereafter 5 mg/kg OUTPATIENT FOLLOW UP Scheduled Appointments Next 10 Appointments 09/29/2024 2:00 PM TXP DIAB 01 RO[facility] Transplant 10/03/2024 9:00 AM US ROGO 03 RM 14 Radiology 10/03/2024 2:00 PM INF CHAIR 01 ROEI Infusion Therapy 10/05/2024 12:00 PM RST RT 01 ROEI Pulmonary Medicine 10/10/2024 7:50 AM LAB BLOOD [facility] Laboratory Medicine 10/10/2024 8:00 AM LAB URINE CONTAINER [facility] Laboratory Medicine 10/10/2024 8:30 AM TXP POST LIVER [facility] Transplant 10/10/2024 9:20 AM NM ROGO 05 BMD 05 Radiology 10/10/2024 9:45 AM LAB 01 RENAL [facility] Laboratory Medicine 10/10/2024 1:[address] [facility] 836 Radiology Displaying the next 10 appointments. This patient has additional appointments scheduled. For appointment details refer to your Patient Appointment Guide. TEST RESULTS PENDING AT DISCHARGE Pending Labs Order Current Status Insulin In process DETAILS OF HOSPITAL STAY REASON FOR ADMISSION Abdominal Pain HOSPITAL COURSE Ms. 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 Ms. Brunson has been managed for acute cellular rejection with Thymoglobulin, repeat liver biopsy on 09/21 demonstrated resolving acute cellular rejection. However, she continued to have chronic abdominal pain and nausea. She presented to the local emergency department on 09/22 due to abdominal pain. She was subsequently admitted to [facility] for [facility] management. CT did demonstrate large right-sided stool burden, she was recommended methyl naltrexone however she was noncompliant with this recommendation She had continued improvement in nausea and abdominal pain without any significant change in management. She was set for discharge on the evening of 09/25, however she noted recurrent pain and decidedagainst dismissal from the hospital. She did mentioned on multiple occasions that she needed a refill of her Dilaudid, however based on refill history it was determined she should have multiple days of Dilaudid remaining. The next morning, she was noted to be hypoglycemic on numerous occasions despite administration of dextrose. It was suspected she may be using her home insulin, and indeed after room search we found multiple of her home insulin needles in the discarded needles box as well as empty insulin syringes.Room search also revealed her most recent Dilaudid pill bottle which was empty. Psychiatry was consulted who did not recommend involuntary psychiatric hospitalization given lack of self-harm intent. Ms. Brunson stated she was leaving the hospital after this Psychiatry evaluation, and she was discharged home in stable condition on the afternoon of 09/26/2024 CONSULTS ORDERED DURING THIS ADMISSION IP CONSULT TO DIABETES IP CONSULT TO DIABETES IP CONSULT TO PSYCHIATRY & PSYCHOLOGY CONDITION AT DISCHARGE stable Discharge instructions were provided to the patient and caregiver(s). Total time spent in discharge services today: 60 minutes. documented in this encounter Discharge Instructions * Discharge Instructions* Xiomara Patel - 09/25/2024 9:14 AM CDT BLOOD GLUCOSE MANAGEMENT: You were discharged from the [facility] Liver Transplant Service. Please identify this service name if youcall with questions after hospitalization. Monitor blood glucose via continuous glucose monitor (CGM) before meals and at bedtime. Blood glucose goal is 100-160 mg/dL, slightly higher goal due to extreme fluctuations in blood glucose. Most recent A1c on record: Lab Results Component Value Date HGBA1C 7.5 (H) 05/12/2024 Follow-up with the outpatient provider who manages your diabetes within 7-10 days of discharge or earlier if blood glucose values are consistently out of goal range. As Diabetes and Nutritional Education is important to your diabetes management, yearly follow up with a local B[facility] Pointer and Dietitian is recommended. Please check with your insurance company as diabetes education visits are commonly covered. Your primary care provider can provide referrals for education. documented in this encounter Medications at Time [...] glucose testing. 1 each 05/15/2024 1:09 PM ACTIVITY DIRECTOR 05/15/2024 blood sugar diagnostic strips Use to test blood sugar 2 time(s) per day. 100 test 1 07/04/2024 1:55 PM ACTIVITY DIRECTOR 07/04/2024 07/05/19 26 blood-glucose meter misc Test as directed for diabetes control. 1 each 05/15/2024 1:09 PM ACTIVITY DIRECTOR 05/15/2024 blood-glucose sensor (FreeStyle Kristina 3 Plus [...] tablet 09/18/2024 12:40 PM CDT 09/08/2024 insulin aspart U-100 (NovoLOG FlexPen) 100 unit/mL (3 mL) pen Inject 4 Units under the skin 3 (three) times a day with meals. For blood glucose: 180-219: give 1 units 220-259: 2 units 260-299: 3 units 300-339: 4 units 340-379: 5 units 380-399: 6 units Greater than 399: 7 units. 15 mL 09/25/2024 insulin glargine 100 unit/mL (3 mL) pen Inject 8 Units under the skin 2 (two) times a day. 15 mL 1 09/15/2024 7:42 PM CDT 09/08/2024 lancets Use 2 (two) times a day. Use as directed for diabetes testing. 100 each 1 07/04/2024 1:55 PM ACTIVITY DIRECTOR 07/04/2024 levonorgestreL (MIRENA) 21 mcg/24 hours (8 yrs) 52 mg IUD 1 Intra Uterine Device (1 each total) by intrauterine route continuously. Inserted 07/31/2022. 1 each 12/31/2022 lidocaine 4 % adhesive patch,medicated Place 1 patch on the skin daily. Apply to painful areas. 30 patch 1 04/20/2024 tocqje-rkkfmkjk-hx ylase (Creon) 12,000-38,000-60,[address] [...] by mouth daily. 30 tablet 3 03/27/2024 NaCl 0.9% parenteral solution 89 mL with belatacept 25 mg/mL recon soln 275 mg 275 mg. Belatacept Schedule: 5 mg/kg on 09/25, 10/09, 10/23, 11/06; then 5 mg/kg every 28 days starting 11/20/24. 10/09/2024 naloxone (Narcan) 4 mg/actuation nasal spray Administer 1 spray (4 mg total) into one nostril as needed for reversal. Repeat with second device in other nostril after 2-3 minutes if no or minimal response. 2 each 04/25/2024 12:55 PM ACTIVITY DIRECTOR 04/25/2024 ondansetron (Zofran) 8 mg tabletIndications: Transplant Liver (HCC),Nausea,Medic ation Therapy Half-Way Not 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 Take 1 tablet (8 mg [...] mouth daily. 90 tablet 06/27/2024 5:33 PM ACTIVITY DIRECTOR 06/28/2024 pregabalin (Lyrica) 75 mg capsule Take 1 capsule (75 mg total) by mouth 2 (two) times a day. 60 capsule 09/15/2024 7:42 PM CDT 09/08/2024 10/16/19 prochlorperazine (Compazine) 10 mg tablet Take 1 tablet (10 mg total) by mouth every 6 (six) hours as needed for nausea or vomiting. 30 tablet 08/31/2024 9:26 AM CDT 08/31/2024 tacrolimus (Prograf) 1 mg capsuleIndications :prevention of liver transplant rejection Take 5 capsules (5 mg total) by mouth 2 (two) times a day Indications: liver transplant rejection prevention. Changed from 3 mg BID to 5 mg BID on 09/19. 900 capsule 3 09/25/2024 09/26/19 teriparatide (Forteo) 20 mcg/dose (600mcg/2.4mL) injection Inject [...] as of this encounter Progress Notes * Kandis Mueller, YARITZA, C.N.P. - 09/26/2024 1:02 PM CDT SUBJECTIVE HISTORY OF PRESENT ILLNESS LOS: 4 days DCS continues to follow this 34 y.o. female for blood glucose management admitted on 09/22/2024 for Abdominal Pain PREADMISSION DIABETES THERAPY: Lantus 8 units twice daily. Novolog 8 units three times daily plus +1 for every 40 > 180 mg/dL. NovoLog set mealtime dose has been increased but correction scale was decreased 1 week ago due to extreme fluctuations in RMG's.She will take her set NovoLog dose even with small or low oral intake. Has been getting intermitted steroids for rejection- last dose methylpred 125 mg appears to be on 09/15. Patient is in no acute distress. Resting in bed. Reviewed hospital insulin regimen. Reviewed dismissal plan. Blood Glucose Results in Last 24 Hours: Recent Labs 09/26/24 1219 09/26/24 1149 09/26/24 1125 09/26/24 1101 09/26/24 1040 09/26/24 1016 09/26/24 1001 09/26/24 0933 09/26/24 0900 09/26/24 0815 09/26/24 0743 09/26/24 0715 09/26/24 0619 09/26/24 0515 09/26/24 0404 09/26/24 0321 09/25/24 2047 09/25/24 1832 09/25/24 1457 GLUCOSEPOC 176 H 144 H 239 H 37 L 105 57 L 134 64 L 72 78 78 57 L 73 -- 95 90 138 389 H 329 H GLUCOSE -- -- -- -- -- -- -- -- -- -- -- -- -- 64 L -- -- -- -- -- Yesterday given Lantus 8 units in the morning and 8 units at bedtime, NovoLog 1 unit for every 12 grams of carbohydrates consumed with meals (2-5-2 units with respective meals), and NovoLog 16 units total for the correction of hyperglycemia. Hypoglycemia ensued this AM at 0619 with BG of 73 mg/dL and was persistent despite hypoglycemia protocol-driven treatment total of 200 ml of Dextrose 50%, and juices, and breakfast. She was symptomatic with shakiness. Her room was searched to find evidence of patient-administered insulin injections. Insulin level lab result was 25.4. She was put on close observation status. Primary service ordered Dextrose fluids and hypoglycemia resolved with BG now at 176 mg/dL. STEROIDS: Prednisone 5 mg (home dose) Current Diet Adult Diet Regular starting at 09/23 2023 OBJECTIVE VITAL SIGNS Temperature: 36.6 ??C Resp Rate: 15 Blood Pressure: 123/88 BP Location: Right arm;Upper SpO2: 100 % Height: 150.4 cm Weight: 54 kg Body mass index is 23.87 kg/m??. DIAGNOSTICS Lab Results Component Value Date CREATININE 0.60 09/26/2024 Estimated Creatinine Clearance: 112.6 mL/min (by C-G formula based on SCr of 0.6 mg/dL). ASSESSMENT / PLAN #1 Diabetes mellitus, type 3c given history of DKA and low c-peptide in setting of chronic pancreatitis, preadmission hyperglycemia based on A1c 7.5% #2 Persistent hypoglycemia, resolved #3 S/p liver transplant in 2022 #4 Hyperglycemia related to steroid therapy #5 Chronic pancreatitis INPATIENT PLAN: - Blood Glucose Monitoring: four times daily before meals and bedtime plus 0200 - Glucose Goal: 140-180 mg/dL. - Basal: Lantus 8 units in the morning and 8 units in the evening. DO NOT HOLD, patient has type 1 diabetes. - Mealtime: NovoLog 1 unit for every 12 grams of carbohydrates consumed with meals. - Correction Scale: NovoLog mild correction scale three times a day, individualized correction scale 0200 (140-179= 0 units; 180-219= 0 units; 220- 259= 1 units; 260-299= 2 units; 300-339= 3 units; 340-379= 4 units; 380-399= 5 units), and modified bedtime correction scale - DCS will evaluate and adjust insulin doses as indicated to achieve glycemic goal. ANTICIPATED DISMISSAL PLAN: Pre-admission multiple daily injection program with slight dose adjustment (reduced NovoLog dose inthe setting of low oral intake). She follows closely with outpatient Transplant Endocrinology, faustod doses adjusted on 09/20/2024.Recommend continued close outpatient follow up for continued dose a djustment. Blood Glucose Frequency: via continuous glucose monitor (CGM) Goal: 100-160 mg/dL, higher goal due to extreme fluctuation in blood glucoses. Final DCS dismissal recommendations have been updated. No new prescriptions needed. Discussed above plan with the patient, Nursing, Primary service. Patient is alert and oriented and in agreement with the plan. DCS pager [phone] [phone] will continue to follow. Call primary service for diabetes concerns between 6:30 p.m. and 6:30 a.m. Primary service to contact auto service station attendant Endocrinology fellow via hospital setup operator for questions. * Roseline Byrnes M.B.B.S. - 09/26/2024 11:29 AM CDT LIVER TRANSPLANT INPATIENT SERVICE - PROGRESS NOTE SUBJECTIVE: The patient was seen and evaluated on multidisciplinary Liver Transplant team rounds. Carmelitaee with the team's note dated today. 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 Brunson was not able to be dismissed yesterday as close to dismissal time she reported havingsignificant abdominal pain. She had requested a prescription for narcotics. Pharmacy and primary team reviewed her PDMP with her and she should have sufficient medication based on this. This morning the patient has had a persistent hypoglycemia despite having meals and dextrose. Her room was searched and empty insulin syringes (not hospital provided) were found in her bag. This is consistent withthe patient deliberately inducing the hypoglycemia by secretly administering insulin. We will consult psychiatry for involuntary commitment given that the patient is at risk for self-harm. She was started on belatacept yesterday. Liver tests are stable. DISPOSITION: Patient requires ongoing inpatient care at this time. * Gerard King M.D. - 09/25/2024 5:29 PM CDT LIVER TRANSPLANT INPATIENT PROGRESS NOTE SUBJECTIVE INTERVAL HISTORY: - Feeling well this morning. Ambulated to hospital library independently - Improvement in liver tests - Received first dose of belatacept - Plan was for hospital dismissal, however this evening patient decided that she did not feel comfortable leaving the hospital tonight and preferred to leave in the morning. No medical indication forongoing inpatient hospitalization OBJECTIVE PHYSICAL EXAMINATION VITAL SIGNS: Temperature: [36.6 ??C-36.8 ??C] 36.8 ??C Resp Rate: [16-20] 20 Blood Pressure: (109-129)/(73-95) 129/87 SpO2: [96 %-100 %] 96 % Pulse Rate: [86-96] 96 General: Appears stated age, in no acute distress. HEENT: Oral mucosa without lesions. Heart: No lower extremity edema. Lungs: Breathing comfortably on room air Abdomen: Soft, nondistended. +mild RUQ tenderness Psych: Oriented, answering questions appropriately. DIAGNOSTICS Results from last 7 days Lab Units 09/25/2462009/24/2453209/23/2462809/22/242042 WBC x10(9)/L 3.0* 5.1 6.0 9.5 HEMOGLOBIN g/dL 11.7 12.3 13.3 13.5 HEMATOCRIT % 35.0* 36.4 39.6 38.6 PLATELETS AUTO x10(9)/L 180 208 169 162 Results from last 7 days Lab Units 09/25/2462009/24/2453209/23/2462809/22/24 2043 SODIUM mmol/L 137 137 137 133* CREATININE mg/dL 0.54* 0.59 0.44* 0.45* ESTIMATED GFR EGFR mL/min/BSA >90 >90 >90 >90 BUN mg/dL 16 11 6 4* CHLORIDE mmol/L 105 104 101 98 MAGNESIUM mg/dL -- -- 1.9 -- Results from last 7 days Lab Units 09/25/2462009/24/24 0509/23/24 0609/22/24 2043 INR 0.8 0.8 0.9 1.0 Results from last 7 days Lab Units 09/25/2462009/24/24 05 ALBUMIN g/dL 3.2* 3.3* AST U/L 112* 84* ALT U/L 161* 188* ALK PHOS U/L 435* 463* BILIRUBIN DIRECT mg/dL 0.4* 0.6* BILIRUBIN TOTAL mg/dL 0.8 1.1 Intake/Output Summary (Last 24 hours) at 09/25/2024 1729 Last data filed at 09/25/2024 1415 Gross per 24 hour Intake 470 ml Output -- Net 470 ml HOSPITAL PROBLEM LIST: #1 Abdominal Pain #2 Diabetes Mellitus Drug Or Chemical Induced With Hyperglycemia (HCC) ASSESSMENT / PLAN 34 yo F from [place], [place], s/p LT 10/10/22 for alcohol associated liver disease with recurrent acute cellular rejection now s/p thymoglobulin who was admitted 09/23 for abdominal pain in context of elevated liver tests, improving Plan for today: - Initiate belatacept for immunosuppression. Outpatient infusion therapy orders are being coordinated - Planned hospital discharge, however patient refused # Status post LT 10/10/2022 for alcohol associated liver disease # History of acute cellular rejection 04/2024, 08/2024 s/p solumedrol x3, s/p Thymoglobulin (09/07, 09/08, 09/11, 09/13, 09/15, 09/17, with 09/11 and 09/13 doses incomplete) # Immunosuppression due to drugs # Hepatic steatosis of allograft # History of hepatic artery stenosis s/p stent 12/2023 # Elevated liver tests - Day 1 Belatacept - Tacrolimus 5 mg BID (trough 5-8). Dose will be decreased in coming weeks and then discontinued per Belatacept protocol - Prednisone 5 mg - Supervised tacrolimus administration - She has PICC line - Continue oral valganciclovir for 12 weeks (end date 12/18/24) - Status post pentamidine 09/07, complete pentamidine monthly for 12 weeks (end date 12/18/24) # Hyperglycemia # Labile blood glucose levels # Chronic pancreatitis, with both exocrine and endocrine insufficiency # Diabetes - Continue pancrelipase - DCS following # Chronic abdominal pain, awaiting pain rehab clinic # Chronic nausea and vomiting - She has been recommended for pain rehab program outpatient however has yet to schedule these appointments - Continue pregabalin 75 mg BID - Continue naloxegol 25 mg daily (newly added inpatient) DVT PPX: enoxaparin GI PPX: pantoprazole Disposition: pending medical optimization Gerard King M.D. 09/25/24 * Elis Santos APRN, C.N.P., D.N.P. - 09/25/2024 9:05 AM CDT SUBJECTIVE HISTORY OF PRESENT ILLNESS LOS: 3 days DCS continues to follow this 34 y.o. female for blood glucose management admitted on 09/22/2024 for Abdominal Pain PREADMISSION DIABETES THERAPY: Lantus 8 units twice daily. Novolog 8 units three times daily plus +1 for every 40 > 180 mg/dL. NovoLog set mealtime dose has been increased but correction scale was decreased 1 week ago due to extreme fluctuations in RMG's.She will take her set NovoLog dose even with small or low oral intake. Has been getting intermitted steroids for rejection- last dose methylpred 125 mg appears to be on 09/15. Patient is in no acute distress. Resting in bed. Reviewed hospital insulin regimen. Blood glucoses have been fluctuating. She denies any oral intake overnight. Lantus dose was it decrease by 1 unit yesterday at bedtime due to drop in blood glucose the night prior. She has been receiving intermittent insulin to carbohydrate ratio due to low oral intake as well as occasionally having an emesis after eating. (yesterday morning). Blood Glucose Results in Last 24 Hours: Recent Labs 09/25/24 0741 09/25/24 0624 09/25/24 0621 09/25/24 0222 09/24/24 2316 09/24/24 2051 09/24/24 1807 09/24/24 1218 GLUCOSEPOC 357 H 340 H -- 146 H 256 H 333 H 124 227 H GLUCOSE -- -- 368 H -- -- -- -- -- Yesterday given Lantus 8 units in the morning and 7 units at bedtime, NovoLog 1 unit for every 10 grams of carbohydrates consumed with meals (0-6-0 units with respective meals), and NovoLog 8 units total for the correction of hyperglycemia. STEROIDS: Prednisone 5 mg (home dose) Current Diet Adult Diet Regular starting at 09/23 2023 OBJECTIVE VITAL SIGNS Temperature: 36.8 ??C Resp Rate: 18 Blood Pressure: 109/73 BP Location: Right arm;Upper SpO2: 100 % Height: 150.4 cm Weight: 54 kg Body mass index is 23.87 kg/m??. DIAGNOSTICS Lab Results Component Value Date CREATININE 0.54 (L) 09/25/2024 Estimated Creatinine Clearance: 125.1 mL/min (A) (by C-G formula based on SCr of 0.54 mg/dL (L)). ASSESSMENT / PLAN #1 Diabetes mellitus, type 3c given history of DKA and low c-peptide in setting of chronic pancreatitis, preadmission hyperglycemia based on A1c 7.5% #2 Hyperglycemia #3 S/p liver transplant in 2022 #4 Intermittent steroid use for rejection #5 Chronic pancreatitis Patient has extreme variability in blood glucoses. She is having small amount of oral intake and also had an emesis after her morning meal yesterday. This is making covering oral intake difficult. Wewill make slight adjustments to insulin regimen and will add has needed insulin to carbohydrate ratio to cover snacks. She denies any oral intake overnight last night. INPATIENT PLAN: - Blood Glucose Monitoring: four times daily before meals and bedtime plus 0200 - Glucose Goal: 140-180 mg/dL. - Basal: Lantus 8 units in the morning and 8 units in the evening. Increase evening dose back to 8 units due to rise in blood glucose overnight. DO NOT HOLD, patient has type 1 diabetes. - Mealtime: NovoLog 1 unit for every 12 grams of carbohydrates consumed with meals. Added insulin to carbohydrate ratio to cover snacks. Please ensure all oral intake is covered with insulin. - Correction Scale: NovoLog mild correction scale three times a day, individualized correction scale 0200 (140-179= 0 units; 180-219= 0 units; 220- 259= 1 units; 260-299= 2 units; 300-339= 3 units; 340-379= 4 units; 380-399= 5 units), and modified bedtime correction scale - DCS will evaluate and adjust insulin doses as indicated to achieve glycemic goal. ANTICIPATED DISMISSAL PLAN: Pre-admission multiple daily injection program with slight dose adjustment (reduced NovoLog dose inthe setting of low oral intake). She follows closely with outpatient transplant endocrinology, lasthad doses adjusted on 09/20/2024.Recommend continued close outpatient follow up for continued dose a djustment. Blood Glucose Frequency: via continuous glucose monitor (CGM) Goal: 100-160 mg/dL, higher goal due to extreme fluctuation in blood glucoses. Final DCS dismissal recommendations have been updated. No new prescriptions needed. Discussed above plan with the patient. Patient is alert and oriented and in agreement with the plan. DCS pager [facility] [phone] will continue to follow. Call primary service for diabetes concerns between 6:30 p.m. and 6:30 a.m. Primary service to contact auto service station attendant Endocrinology fellow via hospital setup operator for questions. * Sree Sena M.D. - 09/25/2024 8:10 AM CDT Liver General Admission CHIEF CONCERN: Malaise and abdominal pain Subjective: The patient was seen on multidisciplinary transplant team rounds. I agree with the management plans as reviewed with the transplant house staff. 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 She is afebrile and hemodynamically stable. Bowel and bladder function are intact. Liver biochemistries are slightly improved today. We are awaiting T and B-cell subsets. Continuing tacrolimus. Her level is 7.9 yesterday. After discussing with the multidisciplinary team, we will be transitioning from oral tacrolimus to belatacept. We will work with the pharmacy to initiate the transitioned protocol. She will need an infusion of belatacept before dismissal. Then she will need additional outpatient infusions at 2 weeks and 4 weeks before transitioning tomonthly. She will also need adjustment of her tacrolimus dosing per protocol. Otherwise, I believe she is stable for dismissal from the hospital today. We will make arrangements for outpatient followup. * Ave Kuhn I., PharmSumaDSuma, R.Ph., BCPS - 09/25/2024 7:34 AM CDT Brief Pharmacist Update Liver transplant team is interested in converting Christelle for tacrolimus to belatacept due to intolerance. Proposed conversion plan based on kidney transplant experience. CNI Conversion Protocol Post-Start Day Date Belatacept Dose CNI Dose 0 (week 0) 09/25/2024 5 mg/kg 100% baseline 14 (week 2) 10/09/2024 5 mg/kg 40-60% baseline; 25% baseline on week 3 28 (week 4) 10/23/2024 5 mg/kg Discontinue 42 (week 6) 11/06/2024 5 mg/kg 56 (week 8) 11/20/2024 5 mg/kg Every 28 days thereafter 5 mg/kg Entering a therapy plan will be critical to ensuring access going forward anticipating insurance appeal will be needed. I would highly recommend starting an antimetabolite before stopping tacrolimus. Additionally would monitor CMV PCR monthly while on belatacept as she is a mismatch. * Kenny Purdy M.D. - 09/24/2024 8:01 AM CDT LIVER TRANSPLANT INPATIENT PROGRESS NOTE SUBJECTIVE INTERVAL HISTORY: - She is overall doing well this morning; reporting some RUQ abdominal pain that is mild. She had 2urine output and 2 bowel movements overnight. She is planning to walk today, also reports walking yesterday - Admitted 09/23 for malaise and abdominal pain in context of worsening liver tests - Tacrolimus trough yesterday was 7.3 on tacrolimus 5 mg BID. Liver tests are improving. - Pending T/B cell subsets that have been collected OBJECTIVE PHYSICAL EXAMINATION VITAL SIGNS: Temperature: [36.5 ??C-37.5 ??C] 36.6 ??C Resp Rate: [14-18] 16 Blood Pressure: (101-107)/(62-84) 107/74 SpO2: [96 %-99 %] 99 % Pulse Rate: [97-100] 97 General: Appears stated age, in no acute distress. HEENT: Oral mucosa without lesions. Heart: No lower extremity edema. Lungs: Breathing comfortably on room air Abdomen: Soft, nondistended. +mild RUQ tenderness Skin: +Tattoos on arms bilaterally Psych: Oriented, answering questions appropriately. DIAGNOSTICS Results from last 7 days Lab Units 09/23/2462809/22/24204209/18/24 1234 WBC x10(9)/L 6.0 9.5 7.7 HEMOGLOBIN g/dL 13.3 13.5 13.2 HEMATOCRIT % 39.6 38.6 38.2 PLATELETS AUTO x10(9)/L 169 162 231 Results from last 7 days Lab Units 09/23/2462809/22/24204209/18/24 1234 SODIUM mmol/L 137 133* 143 CREATININE mg/dL 0.44* 0.45* 0.48* ESTIMATED GFR EGFR mL/min/BSA >90 >90 >90 BUN mg/dL 6 4* 8 CHLORIDE mmol/L 101 98 107 MAGNESIUM mg/dL 1.9 -- -- Results from last 7 days Lab Units 09/23/2462809/22/24204209/18/24 1234 INR 0.9 1.0 0.9 Results from last 7 days Lab Units 09/23/2462809/22/24204209/18/24 1234 ALBUMIN g/dL 3.6 3.6 4.1 AST U/L 111* 140* 86* ALT U/L 258* 288* 174* ALK PHOS U/L 471* 440* 326* BILIRUBIN DIRECT P mg/dL -- 2.0* -- BILIRUBIN DIRECT mg/dL -- -- 0.5* BILIRUBIN TOTAL mg/dL 2.4* 3.4* 1.2 Intake/Output Summary (Last 24 hours) at 09/23/20242055 Last data filed at 09/23/2024 1655 Gross per 24 hour Intake 1020 ml Output -- Net 1020 ml HOSPITAL PROBLEM LIST: #1 Abdominal Pain #2 Diabetes Mellitus Drug Or Chemical Induced With Hyperglycemia (HCC) ASSESSMENT / PLAN 34 yo F from [place], [place], s/p LT 10/10/22 for 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 For now plan is to determine further T-cell directed therapy (Atgam) and switching either tacrolimus to belatacept or adding azathioprine (instead of prednisone) to immunosuppression regimen. - Tacrolimus 5 mg BID (trough 5-8), level today is pending - Prednisone 5 mg - T/B cell subsets to evaluate for further T-cell directed therapy (Atgam) - Supervised tacrolimus administration - Possibly azathioprine versus switching tacrolimus to monthly belatecept - She has PICC line - Continue oral valganciclovir for 12 weeks (end date 12/18/24) - Status post pentamidine 5/8, complete pentamidine monthly for 12 weeks (end date 12/18/24) # Hyperglycemia # Labile blood glucose levels # Chronic pancreatitis, with both exocrine and endocrine insufficiency # Diabetes - Continue pancrelipase - DCS following # Chronic abdominal pain, awaiting pain rehab clinic # Chronic nausea and vomiting - She has been recommended for pain rehab program outpatient - Continue pregabalin 75 mg BID - Continue naloxegol 25 mg daily (newly added inpatient) DVT PPX: enoxaparin GI PPX: pantoprazole Disposition: pending medical optimization Oralia Purdy M.D. 09/23/24 * Sree Sena M.D. - 09/24/2024 7:38 AM CDT Liver General Admission CHIEF CONCERN: Malaise and abdominal pain Subjective: The patient was seen on multidisciplinary transplant team rounds. I agree with the management plans as reviewed with the transplant house staff. 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 She is afebrile and hemodynamically stable. Bowel and bladder function are intact. Liver biochemistries are slightly improved today. We are awaiting T and B-cell subsets. Continuing tacrolimus. Also considering transitioning from oral tacrolimus to monthly belatacept and discussing this with some of the other hepatologists. The patient indicates that she would be open to this change if the team elects to make it. Analgesics and antiemetics as needed. * Ave Kuhn I., Pharm.Jeri, R.Ph., [facility] - 09/23/2024 1:51 PM CDT Transplant Pharmacist Note Catia Brunson is a 34 y.o. status post transplant on 10/10/2022 (Liver). Admitted on 09/22/2024 for abdominal pain and worsening liver chemistries . Indication for transplant: alcohol-associated liver disease PMH:alcohol-associated liver disease s/p liver transplant 2022 c/b recurrent cellular rejection, chronic pancreatitis with exocrine and endocrine insufficiency, diabetes OBJECTIVE Immunosuppression Lab Results Component Value Date TACROLIMUS 7.3 09/23/2024 Kidney function: Lab Results Component Value Date CREATININE 0.44 (L) 09/23/2024 EGFR >90 09/23/2024 CSTCECYSTATC 0.85 10/20/2023 EGFRCYSTATNC 100 10/20/2023 Liver Function: Lab Results Component Value Date ALT 258 (H) 09/23/2024 AST 111 (H) 09/23/2024 GGT 114 (H) 03/16/2024 ALKPHOS 471 (H) 09/23/2024 BILITOT 2.4 (H) 09/23/2024 ASSESSMENT / PLAN Recommendations & Follow Up Tacrolimus levels <0.1 recently. Patient endorses to me that she is taking tacrolimus 5 mg twicedaily swallowing capsules whole. Pablo continue this dosing in hospital and watch levels for now. Team to obtain T & B cell subsets to determine if additional antithymocyte globulin needed. Relistor to decrease stool burden. Summary of Pharmacotherapy Plan Immunosuppression: Rejection: rATG for acute cellular rejection 09/07, 09/08, 09/11, 09/13, 09/15, 09/17 doses scheduled for 09/11 and 09/13 were stopped early due to infusion reaction Prednisone 5 mg daily Tacrolimus adjusted to goal (below) Infectious Disease: Prophylaxis: HSV/CMV: (Nel)ganciclovir x 3 months post rATG [end 12/18/24] PCP: Pentamidine 300 mg neb monthly x 3 months post rATG [end 12/18/24] Last administered 09/07/24; next due 10/05/24 Neuro: Pain management with methocarbamol and Lyrica scheduled, hydromorphone available as needed. Continues mirtazapine for appetite/sleep; trazodone for sleep. Renal: Medications adjusted for CrCl >100 mL/min: Valcyte, Lyrica GI: Adding Relistor to decrease stool burden. Endo: DCS managing insulin regimen. 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 Prophylaxis: VTE: Enoxaparin (prophylaxis dose) HAT: none at this time; aspirin removed from medication list August 2024 with notes saying she was not taking it. Drug Interactions: None clinically significant Home Medications: Held:all essential medications resumed Discontinued:n/a Patient own medications: none Dismissal Planning No pharmacologic barriers to dismissal are identified at this time. Transplant Info & Therapeutic Drug Monitoring Goals Transplant Summary Liver Transplant - 10/10/2022 (#1) - [facility] POD: 1 year 11 months Protocols All Organs - Lab Interval Every 2 Weeks Liver Primary [place] Diagnosis Alcoholic Cirrhosis Liver Secondary [place] Diagnosis -- Donor Serologies Recipient Liver Donor (Pre-donation Results) Anti-CMV CMV IgG: Negative Positive CMV IgM: Negative -- CMV Nucleic Acid: Undetected -- EBV IgG EBV VCA IgG: Positive Positive EBV IgM EBV VCA IgM: Negative Not Done Toxoplasma Toxoplasma IgG: Negative Negative Toxoplasma IgG Value: <3 -- Active Patient Thresholds Lab Low High Effective Since Comment Tacrolimus Level 5 8 05/12/2024 * Keith Maurer R.N. - 09/23/2024 7:23 AM CDT Patient's diabetes technology downloaded. Report has been uploaded to patient's chart for our DCS providers to review. documented in this encounter H&P Notes * Sree Sena M.D. - 09/23/2024 7:33 AM CDT Liver General Admission CHIEF CONCERN: Malaise and abdominal pain HISTORY OF PRESENT ILLNESS The patient was seen on multidisciplinary transplant team rounds. I agree with the management plansas reviewed with the transplant house staff. Catia Brunson is a 34-year-old woman who underwent liver transplantation in 2022 for alcohol-associated liver disease which was complicated by by recurrent acute cellular rejection (treated with methylprednisolone and thymoglobulin) admitted with abdominal pain and worsening liver chemistries. She is well known to the service. Resting comfortably this morning. REVIEW OF SYSTEMS ROS negative, except as mentioned in HPI. 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 Plan is to obtain T and B-cell subsets to assess the need for further T-cell directed therapy (Atgam). We will proceed with supervised tacrolimus administration to try to improve her tacrolimus levels (currently undetectable). Thereafter, depending on the biochemical response, can considerif she needs additional agents. Discussion has included possibilities of adding azathioprine versusconverting from tacrolimus to monthly belatacept. Analgesics and antiemetics as needed. We talked to her about methyl naltrexone to reduce her stool burden, and she is amenable to try this today. * Juan Mayo M.D. - 09/22/2024 4:48 PM CDT Liver General Admission CHIEF CONCERN: Malaise and abdominal pain HISTORY OF PRESENT ILLNESS Catia Brunson is a 34-year-old woman who underwent liver transplantation in 2022 for alcohol-associated liver disease which was complicated by by recurrent acute cellular rejection (treated with methylprednisolone and thymoglobulin) admitted with abdominal pain and worsening liver chemistries. She was last seen in the Liver Transplant Clinic 09/15/[address] Purdy. At that time, she had not completed her day 5 of thymoglobulin due to nausea, but was otherwise feeling well. Her liver chemistries were also improving. She completed a day 7 and day 10 thymoglobulin. On 09/21/24 she underwent liver biopsy which demonstrated resolving acute cellular rejection as wellas moderate steatosis. Following day, she presented to the local emergency department with abdominal pain was found to have worsening liver chemistries. She was transferred to [facility] for further evaluation. She arrived to the floor in stable condition. She reports that she was in her usual state of healthuntil 2 days ago (that is one day prior to her liver biopsy), when she began to experience malaise and a new pain in her right side. She does have chronic abdominal pain affecting the left side of her abdomen, but this right-sided pain was new, although it reminded her of the pain she experienced when she had cirrhosis. In addition to these symptoms, she also had nausea and vomiting, and had difficulty keeping her pills down, including tacrolimus. She would try her best to re-dose in order to get down the most important medications, but this was not always successful. She is not having any chest pain, shortness of breath, diarrhea, constipation, or swelling of either the abdomen or legs. REVIEW OF SYSTEMS ROS negative, except as mentioned in HPI. DIAGNOSTIC FINDINGS I have reviewed laboratory, imaging, and other diagnostic studies. Pertinent findings as follows: Hemoglobin 13.5 Platelets 162 Leukocytes 9.5 Potassium 3.8 Sodium 133 Creatinine 0.45 Glucose 193 AST 140 (86, 68, 55) ALT 288 (174, 170, 231) Alkaline phosphatase 440 INR 1 EXAM Gen: Uncomfortable appearing female in no acute distress. HEENT: Normocephalic, atraumatic. Conjunctivae anicteric and conjunctivae without pallor or injection. Moist mucous membranes. CV: Regular rate and rhythm. Normal S1, S2. No murmurs, gallops, or rubs. Pulm: Breathing comfortably on room air. Anterior and posterior lung zarco clear to auscultation bilaterally. Abd: Well-healing surgical scar. Soft and nondistended. Normoactive bowel sounds. Moderately tenderto even light palpation to the right upper quadrant and left upper quadrant, without guarding or rebound tenderness. Ext: No peripheral edema. Neuro: Alert and oriented. No asterixis. Skin: No rashes or lesions visualized. ASSESSMENT / PLAN #Acute malaise, nausea, vomiting, and abdominal pain in the setting of worsening liver chemistries # History of liver transplant in 2022 for alcohol-associated liver disease # History of recurrent acute cellular rejection, treated with methylprednisolone and recently thymoglobulin # Immunosuppression with tacrolimus # Hepatic steatosis of allograft # History of hepatic artery stenosis (stent 2023) This is a 34-year-old woman with a history of liver transplant in 2022 for alcohol-associated liverdisease, which has been complicated by recurrent episodes of acute cellular rejection very recentlytreated with methylprednisolone and thymoglobulin admitted one days after liver biopsy for a two-day history of malaise, acute right-sided abdominal pain, nausea, and vomiting in the setting of worsening liver chemistries. Her liver biopsy showed resolving acute cellular rejection. It is possible that her symptoms are related to ongoing rejection. Additionally, her symptoms have prevented her from taking all of her medications, including tacrolimus. There was also a history of hepatic artery stenosis. Her symptoms began the day prior to her liver biopsy in her hemoglobin is normal, so I do not suspect complications of the liver biopsy such as hematoma. We will follow her liver chemistries and obtain a liver ultrasound with Doppler. With her rejection status, she may benefit from repeatingimmunophenotyping and optimize her immunosuppression, which may include the addition of a second agent such as azathioprine. Her abdominal pain may also be in part due to constipation, since she has a considerable stool burden on my assessment of her outside CT, particularly in the right colon werewhere she is experiencing her pain. Since she is on chronic opioids, a peripherally acting opioid receptor antagonist may be beneficial; we can trial a single dose methylnaltrexone this evening. Plan - Trend liver chemistries - Obtain liver transplant ultrasound - Pain management with chronic hydromorphone - one dose of subcutaneous methylnaltrexone now and consider daily naloxegol # Chronic pancreatitis with exocrine and endocrine insufficiency # Diabetes mellitus with labile blood glucose Plan - Home insulin regimen Hospital-related Diet: regular VTE prophylaxis: enoxaparin Disposition: pending stability Juan Mayo MD [facility] Cosigned by Sree Sena M.D. at 09/23/2024 5:21 AM CDT documented in this encounter Consult Notes * Benja Neumann D.O. - 09/26/2024 2:08 PM CDTAssociated Order(s): IP CONSULT TO PSYCHIATRY & PSYCHOLOGY Psychiatry Consultation Note This is a supervisory note. I was present during Mrs. Brunson's interview with Dr. Paul Marquez.I have reviewed and agree with subsequent documentation, dated 09/26/24, including the Chief Complaint, History of Present Illness, Review of Systems, Medications, Allergies, Past Medical/Surgical History, Social History, Family Psychiatric History, Psychiatric History, laboratory and imaging results, Mental Status Examination, and the Assessment and Plan documented therein. Please see that documentation for further details, which I will not repeat here. Referral: [facility] Liver Transplant Reason for Consult: self-harm. self administration of insulin while in hospital. SUBJECTIVE HISTORY OF PRESENT ILLNESS Briefly, Mrs. Brunson is a 34 y.o. female admitted to the hospital on 09/22/2024 for abdominal painin the context of a history that includes a liver transplant due to alcoholic cirrhosis (2022) withrecurrent rejection due to medication non- compliance, chronic pain syndrome, chronic pancreatitis, insulin-dependant diabetes, generalized anxiety disorder, and alcohol use disorder in full sustainedremission. She has returned to the hospital several times due to issues related to pain and emesis, and her tacrolimus level was reflective of not taking (or absorbing) that medication. There is concern that her noncompliance with recommendations is putting the transplanted liver in jeopardy, which would ultimately obviously put her life at risk. Her glucose levels were very low this morning, suggestive of e xogenous insulin administration, though she steadfastly denied having done so, even after insulin needles that we do not use were found in her sharps container. Throughout our discussion, she was future-oriented, hopeful, and steadfastly denied any desire to harm herself by action or inaction. She said she plans to start a new job next week, complete the weeklong training, and then has already gotten permission from her job to take three weeks to [facility] the [facility] program. Additionally, she said that her outpatient PCP has told her that he will discontinue Dilaudid if she has not enrolled by the end of October, so she has been tryingto decrease her usage incrementally when she is at home. She was receptive to a discussion as to how uncomfortable discontinuing Dilaudid could be if she has not done that work in advance. She described in detail her current support system and was willing to look into psychotherapy options. OBJECTIVE Length of Stay: 4 days DIAGNOSTICS LABS: I have reviewed recent labs and imaging results. MENTAL STATUS EXAM: Appearance/behavior: Engaged readily. Good eye contact. Socially appropriate grooming and hygiene. Dressed casually in hospital garb. Cognition: Level of Consciousness: Awake and alert. No difficulty maintaining wakefulness. Memory: Able to recall recent and remote events/discussions. Attention/Concentration: Able to follow the conversation. Mood: Affable. Affect: Mood-congruent, stable, and reactive within a normal range. Speech/Language: Fluent and spontaneous. No word-finding difficulties. Thought Form/Process: Goal-directed. No loosening of associations. Thought Content: No delusions noted or endorsed. Perceptual disturbances: Did not appear to respond to internal stimuli during the interview. Insight/Judgement: Verbally able to recognize the presence of illness and agreed to engage in recommended treatments and evaluations, including professing eager anticipation for the [facility]. Musculoskeletal: No tremor noted. Seated station was unremarkable. Gait was not formally tested. Safety: She steadfastly denied current active suicidal or homicidal ideation, intent or plan, and has not recently engaged in purposeful self-injury or aggression. ASSESSMENT / PLAN Diagnoses: #1 Treatment non-adherence #2 Generalized anxiety #3 Medical comorbidities SUICIDE RISK ASSESSMENT Based on available record review and today's [id number] assessment, I believe the risk of Mrs. Brunson intentionally ending her life by suicide in the immediate future is low, though note that there is clearly something going on that puts her at risk. RECOMMENDATIONS I agree with the assessment and plan outlined in the above-referenced documentation, and was actively involved in the creation of that plan. Briefly, this is a very complex situation, in which the patient says the right things, but is nonetheless in and out of the hospital, which is frustrating forall involved. The correct steps are being taken (e.g., minimizing the problems with the tacrolimus by switching to monthly IV belatacept, which will allow for consistent absorption/bioavailability regardless of any nausea/emesis, and dosing can be tracked more accurately. She was also interested in seeing a psychotherapist (we provided her with the link to [facility]) and will make sure the outpatient Transplant Psychiatry team is aware of the current situation and concerns. We strongly encouraged her enrollment [facility], and agree with what she described as the plan she has with her PCP to discontinue opioids by the end of October. We reviewed the notion of central sensitization with chronic opioids, with which she was already familiar. Given concerns for surreptitious dosing with insulin, would consider having teams do a contraband sweep immediately upon arrival in any future hospitalizations, and consider 1:1 staffing or video monitoring throughout the hospital stay to mitigate that risk. There is currently no indication for psychiatric hospitalization, nor any psychiatric contraindication to Mrs. Brunson's discharge from the hospital now that she is medically stable. Thank you for allowing us to assist in Mrs. Brunson's care. Please contact [place] [facility] [phone] with any questions. * Paul Marquez M.D., M.S. - 09/26/2024 1:30 PM CDT SUBJECTIVE Referral Area: [facility] Referred by: Roseline Byrnes M.B.B.* from the Liver transplant service. CHIEF COMPLAINT Deterioration of functioning HISTORY OF PRESENT ILLNESS Catia Brunson is a 34 y.o. female with the medical problems listed below who was [facility] for acute liver rejection. Psychiatry is consulted to evaluate for self-harm. self administration of insulin while in hospital Mrs. Brunson endorses a strong desire to not only live but also to thrive and provides an upcomingjob as evidence. Confounding her quality of life, however is debilitating medical symptoms for eachof which she provides an over abundance of rationale to explain the persistence of these issues. For her repeatedly undetectable tacrolimus she notes that she has had difficult nausea including vomiting of medications and that her body simply does not absorb the tacrolimus. She is very hopeful thata switch to monthly infusions will solve this issue. She also denies intentionally injecting insulin instead noting that her blood sugars dramatically very at home including as high as in the 400s despite not eating and that she is still learning how to administer insulin correctly given she only found out about her type 1 diabetes earlier this year. She expresses hope that her medical conditions will improve as she does not want to undergo anotherliver transplant but adds if needed she would like to undergo another liver transplant as she remains committed to life. She endorses strong social support primarily from her [employer]. Allergies[1] SUICIDE & SUBSTANCE USE SUICIDE RISK ASSESSMENT Based on available record review and today's [id number] assessment, I believe the risk of Mrs. Brunson intentionally ending her life by suicide in the immediate future is low. ACCESS TO FIREARMS In light of the assessment of risk as noted above, this is not a current concern. SUBSTANCE USE: Alcohol: In sustained remission Illicit substances: currently on prescription opioid PAST MEDICAL/SURGICAL HISTORY Medical History[2] Surgical History[3] #1 Abdominal Pain #2 Diabetes Mellitus Drug Or Chemical Induced With Hyperglycemia (HCC) OBJECTIVE MENTAL STATUS EXAM Christelle is a 34 y.o. female who appears younger than her stated age. She is dressed casually and has appropriate hygiene and grooming. She is calm and cooperative and makes good eye contact. There is no evidence of movement abnormalities. Speech is fluent and average in rate, tone, and volume. Her moodis described as good. Affect is congruent and full range. She smiles. Thought process is linear and organized. Thought content is without any current wish to be or suicidal or homicidal thoughts. There is no evidence of delusions or perceptual disturbances. She is help-seeking and future-oriented. Attention and concentration are intact. Insight and judgment are impaired. GENERAL BMI 23.87 kg/m?? Blood pressure 123/88, pulse 91, temperature 36.6 ??C, resp. rate 15, height 150.4 cm, weight 54 kg, SpO2 100%, not currently . 143 109 16 / 64 2.7(S) ; -- (P) 23 0.60 \ 3.7 \ 11.2 / 180 / 33.1 \ ENDOCRINE Lab Results Component Value Date TSH 0.5 07/25/2024 G0BCFPQ 6.2 06/21/2024 Lab Results Component Value Date HGBA1C 7.5 (H) 05/12/2024 Lab Results Component Value Date CHOL 89 04/18/2024 CHOL 89 04/18/2024 HDL 25 (L) 04/18/2024 LDLCALC 41 04/18/2024 TRIG 131 04/18/2024 TRIG 133 04/18/2024 CARDIAC ECG 12 Lead Result Date: 09/22/2024 Sinus tachycardia Rightward axis Low voltage QRS in limb leads When compared with ECG of 11-Sep-2024 23:43, No significant change was found Reviewed by STERLING Vaca [facility] Interval Date Value Ref Range Status 09/22/2024 455 ms Final LIVER/GI MELD 3.0: 8 at 09/26/2024 5:15 AM MELD-Na: 6 at 09/26/2024 5:15 AM Calculated from: Serum Creatinine: 0.60 mg/dL (Using min of 1 mg/dL) at 09/26/2024 5:15 AM Serum Sodium: 143 mmol/L (Using max of 137 mmol/L) at 09/26/2024 5:15 AM Total Bilirubin: 0.6 mg/dL (Using min of 1 mg/dL) at 09/26/2024 5:15 AM Serum Albumin: 3.3 g/dL at 09/26/2024 5:15 AM INR(ratio): 0.8 (Using min of 1) at 09/26/2024 5:15 AM Age at listing (hypothetical): 34 years Sex: Female at 09/26/2024 5:15 AM Last 2 results Lab Units 09/26/24 0515 09/25/24 0621 AST U/L 123* 112* ALT U/L 163* 161* SODIUM mmol/L 143 137 POTASSIUM mmol/L 2.7* 3.9 ALK PHOS U/L 409* 435* BILIRUBIN TOTAL mg/dL 0.6 0.8 RENAL Estimated Glomerular Filtration Rate: 121 mL/min/1.73m2 (by CKD-EPI based on SCr of 0.6 mg/dL). Lab Results Component Value Date URINESOURCE Urine, Urine, Midstream 08/03/2021 CLARITYU Clear 09/23/2024 COLORU Yellow 09/23/2024 RBCU None Seen 09/23/2024 NITRITEU Negative 09/23/2024 LEUKOCYTESU Negative 09/23/2024 PROTEINQUALU 16 09/23/2024 GLUCOSEU >=1000 (A) 09/23/2024 KETONESU 10 (A) 09/23/2024 BILIRUBINU Negative 08/03/2021 PHURINE 6.5 09/23/2024 SPECGRAV 1.010 05/11/2024 UROBILINOGEN 0.2 08/03/2021 TOXICOLOGY Ethanol and Drugs of Abuse Screening Lab Results Component Value Date/Time ETOHQT <10 06/21/20242024 ETOHQT see below 06/21/20242024 ETHANOLSCRU Negative 06/22/2024 0429 AMPHSCRNU Negative 06/22/2024 042 BARBSCRNUR Negative 06/22/2024 042 BENZOURQL Negative 06/22/2024428 BUPENRPHNMSU Negative 06/03/2023 1500 COCUR Negative 06/22/2024 042 METHADONEUR Negative 06/03/2023 1500 METHAMPHU Negative 06/03/2023 1500 OPIASCNU Negative 06/22/2024428 OXYSCRNU Negative 06/03/2023 1500 PHYCYCLSCRU Negative 06/22/2024428 TETRASCRNU Presumptive Positive 06/22/2024428 ASSESSMENT / PLAN Catia Brunson is a 34-year-old female living in [place], [place] with past psychiatric history notable for alcohol use disorder (in sustained remission), generalized anxiety disorder, chronic pain syndrome, medical history pertinent for insulin-dependent diabetes mellitus, 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 She presented to [facility] on 09/24/2024 for acutetransplant rejection and found to have undetectable tacrolimus level. #1 Nonadherence #2 Status post liver transplant #3 Medically unexplained episodes of hypoglycemia, acute transplant rejection #4 Multiple medical comorbidities Prior to psychiatric interview, primary service and nursing informed us they had conducted contra bound search which revealed non-hospital insulin and insulin injecting equipment following medically unexplained episode of severe hypoglycemia this morning. They are also concerned with repeat medical hospitalizations the context of undetectable tacrolimus levels. We had a lengthy but ultimately superficial conversation with the patient where upon she provided various rationale for presence of personal insulin in her room, recurrent undetectable tacrolimus levels, and continued use of opioid agonist. We explained our concerns to the patient and encouraged her to consider alternative possibilities for these setbacks and ways to achieve her goals of a meaningful life. Given the objective evidence, our differential diagnosis includes unmet psychological needs (factitious disorder) vs substance cravings (opioid use disorder). Her inpatient medical team hasdone an excellent job of setting boundaries and identifying alternatives to improve adherence and limit potential harm. Recommendations: A. Strongly recommend patient attend [facility] and discontinue full opioid agonist by October. Our service will reach out to her primary care provider to help coordinate. Please restrict prescription of outpatient opioids to outpatient primary care. She is aware of these rec ommendations and has endorsed agreement. B. Agree with plan to transition to once monthly immunosuppressant infusion dosing C. Will reach out to our colleagues in transplant Psychiatry to ensure follow-up as necessary D. Patient was referred to [facility] for assistance in locating individual therapist E. Could consider contraband sweep at the beginning of future hospitalizations If questions arise, please contact the psychiatry consult service pager at [phone]. Paul Marquez M.D., M.S. 09/26/2024 [1] Allergies Allergen Reactions Toradol [Ketorolac] GI intolerance Azithromycin Nausea And Vomiting and GI intolerance Nausea and vomiting Tramadol GI intolerance Nausea and vomiting [2] Past Medical History: Diagnosis Date Alcoholic Hepatitis [...] ago [facility] About 4 years ago [3] Past Surgical History: Procedure Laterality Date ELBOW SURGERY Left 2017 per patient ESOPHAGOGASTRODUODENOSCOPY N/A 04/02/2022 Procedure: ESOPHAGOGASTRODUODENOSCOPY; Surgeon: Matthew Jerome M.BSumaBSumaSSuma, MJules; [facility] ESOPHAGOGASTRODUODENOSCOPY N/A 09/27/2022 Procedure: ESOPHAGOGASTRODUODENOSCOPY; Surgeon: Naomie Mueller M.BSumaB.SSuma; Location[facility] GALLBLADDER SURGERY 10/10/2022 Came out when i had my liver transplant LITHOTRIPSY EXTRACORPOREAL SHOCK WAVE UNILATERAL N/A 12/02/2022 Procedure: Pancreatic LITHOTRIPSY EXTRACORPOREAL SHOCK WAVE UNILATERAL; Surgeon: Juan Casillas M.D., M.P.H.; Location: [facility] 10/10/2022 Liver transplant surgery OTHER SURGICAL HISTORY Unsure Tendon repair surgery and surgery on left elbow. TENDON REPAIR Left left foot per patient TRANSPLANT LIVER - DONOR WITH BACK TABLE PREP LIVER ALLOGRAFT N/A 10/10/2022 Procedure: TRANSPLANT LIVER - DONOR WITH BACK TABLE PREP LIVER ALLOGRAFT; Surgeon: Nataliia Vann M.D.; Location: [facility] OR * Elis Santos, YARITZA, C.N.P., D.N.P. - 09/23/2024 10:29 AM CDTAssociated Order(s): Diabetes consult (hospital) SUBJECTIVE Diabetes consult (hospital) Referring Provider: Gerard King M.D. CHIEF COMPLAINT/REASON FOR CONSULT Patient seen today for blood glucose management. The patient was admitted on 09/22/2024 for Abdominal Pain HISTORY OF PRESENT ILLNESS DIABETES HISTORY: Initially steroid induced following transplant however due to presentation of DKA and low c peptide(06/23/24 0.7 with RMG 285 mg/dL) with chronic pancreatitis, more like DM1 vs Type 3 c diabetes. Previous hospitalization for DKA, 06/21/2024 glucose 976 mg/dl, anion gap unable to be calculated, bicarbonate <5, beta-hydroxybutyrate 14.0, pH 6.89 PREADMISSION DIABETES THERAPY: Lantus 8 units twice daily. Last dose 09/22 AM- no PM dose on 09/22 due to being in the ED Novolog 8 units three times daily plus +1 for every 40 > 180 mg/dL. NovoLog set mealtime dose has been increased but correction scale was decreased 1 week ago due to extreme fluctuations in RMG's.She will take her set NovoLog dose even with small or low oral intake, including apples or hummus and pretzels. Has been getting intermitted steroids for rejection- last dose methylpred 125 mg appears to be on 09/15. GLUCOSE MONITORING: The patient monitors blood glucose at home continuously with [employer] Kristina 3 continuous glucose monitor (CGM). Results of home glucose monitoring per review of glucometer: CGM results: Average blood glucose: 40-400 mg/dL. She can not associate any low or high blood glucoses with correctional insulin, mealtime insulin or what she eats. Upon review of her Kristina (report is downloaded and in patient's chart) blood glucoses are very labile and difficult to determine cause. Average: 288 mg/dL Time in Range: <70= 3%; 70-180= 13%; 181-240= 16%; >240= 68%. HYPOGLYCEMIA: Frequent episodes of hypoglycemia, multiple times a week. This occurs at various times of the day and overnight. Reports she has intact awareness with blood glucose in the 40-50 mg/dL range. She feels hot, shaky, nauseous. Denies any episodes of hypoglycemia requiring assistance. DIABETES COMPLICATIONS/CO-MORBIDITIES: opoid use disorder, DKA hospitalization 06/2024, liver transplant 10/10/2022 for alcohol associated liver disease with recurrent acute cellular rejection DIET: Reports eating 3 snacks a day. This consists of cheese and crackers, Hummus and pretzels or apples.Reports she rarely eats meals due to not being hungry and not feeling well. Will still takes at NovoLog dose with snacks. Attempts to take 3 snacks and NovoLog a day WEIGHT: Patients weight has been stable. HOSPITAL COURSE: Past 24 Hour Blood Glucose Readings: Recent Labs 09/23/24 0811 09/23/24 0629 09/22/242042 GLUCOSEPOC 286 H -- -- GLUCOSE -- 270 H 193 H Yesterday reports he took Lantus 8 units in the morning prior to admission. She did not receive herevening dose of Lantus. No other insulin given in the hospital. This morning, received Lantus 8 units and NovoLog 4 units for the correction of hyperglycemia for a blood glucose of 286 mg/dL. STEROIDS: Prednisone 5 mg daily, home dose Current Diet Adult Diet Regular starting at 09/23 2023 REVIEW OF SYSTEMS Pertinent items are noted in History of Present Illness. PREADMISSION MEDICATION: Diabetes medication(s) were reconciled on 09/23/2024. OBJECTIVE VITAL SIGNS Temperature: 37.5 ??C Resp Rate: 18 Blood Pressure: 107/84 BP Location: Right arm;Upper SpO2: 96 % BSA (Calculated - sq m): 1.5 sq meters BMI (Calculated): 23.9 kg/m?? Height: 150.4 cm Weight: 54 kg Body mass index is 23.87 kg/m??. PHYSICAL EXAMINATION Constitutional Appearance: She is well-developed. Pulmonary Effort: Pulmonary effort is normal. Skin General: Skin is warm and dry. Neurological Mental Status: She is alert and oriented to person, place, and time. Psychiatric Behavior: Behavior normal. DIAGNOSTICS I have reviewed relevant diagnostics and labs. Lab Results Component Value Date HGBA1C 7.5 (H) 05/12/2024 Estimated Creatinine Clearance: 153.6 mL/min (A) (by C-G formula based on SCr of 0.44 mg/dL (L)). Lab Results Component Value Date CREATININE 0.44 (L) 09/23/2024 ASSESSMENT / PLAN #1 Diabetes mellitus, type 3c given history of DKA and low c-peptide in setting of chronic pancreatitis, preadmission hyperglycemia based on A1c 7.5% #2 Hyperglycemia #3 S/p liver transplant in 2022 #4 Intermittent steroid use for rejection #5 Chronic pancreatitis INPATIENT PLAN: - Blood Glucose Monitoring: four times daily before meals and bedtime plus 0200 - Glucose Goal: 140-180 mg/dL. - Basal: Lantus 8 units twice daily. - Mealtime: NovoLog 1 unit for every 10 grams of carbohydrates consumed with meals. - Correction Scale: NovoLog mild correction scale three times a day, individualized correction scale 0200 (140-179= 0 units; 180-219= 0 units; 220- 259= 1 units; 260-299= 2 units; 300-339= 3 units; 340-379= 4 units; 380-399= 5 units), and modified bedtime correction scale - DCS will evaluate and adjust insulin doses as indicated to achieve glycemic goal. - Consults: None ANTICIPATED DISMISSAL PLAN: Pre-admission multiple daily injection program with possible dose adjustment, plan pending steroids. She follows closely with outpatient transplant endocrinology, last had doses adjusted on 09/20/2024.Recommend continued close outpatient follow up for continued dose adjustment. Blood Glucose Frequency: via continuous glucose monitor (CGM) Goal: 100-140 mg/dL Please page DCS within 24 hours prior to hospital dismissal for final dismissal recommendations. Discussed above plan with the patient. Patient is alert and oriented and in agreement with the plan. Thank you for the consult. DCS pager [facility] [phone] will follow. Call primary service for diabetes concerns between 6:30 p.m. and 6:30 a.m. Primary service to contact auto service station attendant Endocrinology fellow via hospital setup operator for questions. documented in this encounter Nursing Notes * Jennifer Baron R.N. - 09/26/2024 2:20 PM CDT Patient was found to be hypoglycemic this morning. After receiving IV dextrose and drinking juice, blood sugars continued to be persistently low. Primary service and diabetes consulting service was notified, see MAR for interventions. [place] from home were found in sharps container. After discussion with service and leadership, it was decided that a room search be conducted. Pt was educated on why the room search was to be conducted and pt consented. Empty insulin pens were found in the patients belongings. Pt told RN that she did not take any insulin on her own. It was decided that for patient safety, a 1:1 monitor would be appropriate. Pt's blood sugars returned to baseline. Pt refused further lab work and expressed a desire to discharge. Patient discharged safely to home/self care. AVS and medication list reviewed with patient. All questions and concerns addressed. Vital signs stable. No nursing barriers to discharge identified at this time. * Jennifer Baron R.N. - 09/25/2024 6:12 PM CDT Shift Goals: Clinical Goals for the Shift: discharge safely Identify possible barriers to meeting goals/advancing plan of care: Pain End of Shift Summary: Pt had plans to discharge this evening at 1700 when spouse could be availablefor a ride. About an hour before plan to discharge, Pt experienced increased pain in bilateral flanks and reported nausea, (see MAR for interventions). Due to this pain/nausea, pt opted to stay in the hospital for one more night after discussion with her spouse. Pt education was provided citing narcotic agreement, and that there is not room to increase her pain medication due to said agreement. Pt was agreeable to this plan and told RN she would not feel comfortable herself increasing narcotic pain medications. After discussion- Pt has plans to dismiss in the morning and told RN that her would be able to provide transportation before 1100. * Colten Johnson R.N. - 09/25/2024 4:54 AM CDT Shift Goals: Identify possible barriers to meeting goals/advancing plan of care: End of Shift Summary: Patient remained safe. She slept part of the night. Complained of pain and was medicated. She denied any nausea. documented in this encounter Miscellaneous Notes * Hospital Course - Gerard King M.D. - 09/23/2024 7:48 AM CDT Ms. 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 Ms. Brunson has been managed for acute cellular rejection with Thymoglobulin, repeat liver biopsy on 09/21 demonstrated resolving acute cellular rejection. However, she continued to have chronic abdominal pain and nausea. She presented to the local emergency department on 09/22 due to abdominal pain. She was subsequently admitted to [facility] for [facility] management. CT did demonstrate large right-sided stool burden, she was recommended methyl naltrexone however she was noncompliant with this recommendation documented in this encounter Plan of Treatment Upcoming Encounters Date Type Department Care Team (Latest Contact Info) Description 10/05/2024 9:30 AM CDT Appointment Department of Radiology, [facility], in [place], [place] [address] [place] [address] Marisabel Carpenter APRN, C.N.P., D.N.P. [address] [place] [address] 10/05/2024 12:00 PM CDT Appointment Division of Pulmonary Medicine in [place], [place] [address] [place] [address] Edgar Montgomery M.B.B.S., M.S. [address] [place] [address] 10/05/2024 2:45 PM CDT Infusion Department of Infusion Therapy in [place], [place] [address] [place] [address] Noreen Ansari P.A.-C., M.S. [address] [place] [phone] 10/10/2024 7:50 AM CDT Lab Department of Laboratory Medicine and Pathology, [facility] in [place], [place] [address] [place] [address] Marisabel Carpenter APRN, C.N.P., D.N.P. [address] [place] [phone] 10/10/2024 8:00 AM CDT Lab Department of Laboratory Medicine and Pathology, [facility] in [place], [place] [address] [place] [address] Marisabel Carpenter APRN, C.N.P., D.N.P. [address] [place] [phone] 10/10/2024 8:30 AM CDT Nurse Only [facility] in [place], [place] [address] [place] [address] Marisabel Carpenter APRN, C.N.P., D.N.P. [address] [place] [phone] 10/10/2024 9:20 AM CDT Appointment Department of Radiology, [facility] in [place], [place] [address] [place] [address] Marisabel Carpenter APRN, C.N.P., D.N.P. [address] [place] [phone] 10/10/2024 9:45 AM CDT Appointment Department of Laboratory Medicine and Pathology, [facility] in [place], [place] [address] [place] [phone] Marisabel Carpenter APRN, C.N.PSuma, D.N.P. [address] [place] [phone] 10/10/2024 1:30 PM CDT Appointment Department of Radiology, [facility] in [place], [place] [address] [place] [address] Marisabel Carpenter APRN, C.N.P., D.N.P. [address] [place] [phone] Discharge Disposition: Home or Self Care 10/10/2024 2:45 PM CDT Appointment Department of Radiology, [facility], in [place], [place] [address] [place] [address] Marisabel Carpenter APRN, C.N.P., D.N.P. [address] [place] [phone] 10/11/2024 8:00 AM CDT Office Visit Ramirez diaz [facility] in [place], [place] [address] [place] [address] Marisabel Carpenter APRN, C.N.P., Slick.N.P. [address] [place] [phone] 10/11/2024 11:00 AM CDT Comprehensive Visit [facility] in [place], [place] [address] [place] [address] Sree Devlin M.D. [address] [place] [phone] 10/11/2024 1:00 PM CDT Comprehensive Visit Department of Otorhinolaryngology in [place], [place] [address] [place] [phone] Randal Urbano P.A.-Katrin., M.S. [address] [place] [phone] 10/11/2024 2:00 PM CDT Office Visit [facility] in [place], [place] [address] [place] [address] Hiro Murillo P.A.-C. [address] [place] [phone] 10/11/2024 4:00 PM CDT Comprehensive Visit Department of Dermatology in [place], [place] [address] [place] [phone] Parul Martinez M.D. [address] [place] [phone] 10/12/2024 8:00 AM CDT Telemedicine [facility] in [place], [place] [address] [place] [phone] Ervin Mckeon D.O. [address] [place] [phone] 11/01/2024 2:15 PM CDT Appointment Division of Pulmonary Medicine in [place], [place] [address] [place] [phone] Edgar Montgomery M.B.B.Lance., M.S. [address] [place] [phone] documented as of this encounter Procedures Procedure Name Priority Date/Time Associated Diagnosis Comments GLUCOSE POCT, B Routine 09/26/2024 2:05 PM CDT GLUCOSE POCT, B Routine 09/26/2024 1:06 PM CDT GLUCOSE POCT, B Routine 09/26/2024 12:19 PM CDT GLUCOSE POCT, B Routine 09/26/2024 11:49 AM CDT GLUCOSE POCT, B Routine 09/26/2024 11:25 AM CDT GLUCOSE POCT, B Routine 09/26/2024 11:01 AM CDT GLUCOSE POCT, B Routine 09/26/2024 10:40 AM CDT GLUCOSE POCT, B Routine 09/26/2024 10:16 AM CDT GLUCOSE POCT, B Routine 09/26/2024 10:01 AM CDT GLUCOSE POCT, B Routine 09/26/2024 9:33 AM CDT GLUCOSE POCT, B Routine 09/26/2024 9:00 AM CDT GLUCOSE POCT, B Routine 09/26/2024 8:15 AM CDT GLUCOSE POCT, B Routine 09/26/2024 7:43 AM CDT GLUCOSE POCT, B Routine 09/26/2024 7:15 AM CDT GLUCOSE POCT, B Routine 09/26/2024 6:19 AM CDT HEPATIC FUNCTION PANEL, S Routine 09/26/2024 5:15 AM CDT TACROLIMUS LEVEL, B Routine 09/26/2024 5 :15 AM CDT PROTHROMBIN TIME (PT), P Routine 09/26/2024 5:15 AM CDT CBC WITH DIFFERENTIAL, B Routine 09/26/2024 5:15 AM CDT BASIC METABOLIC PANEL, S/P Routine 09/26/2024 5:15 AM CDT INSULIN, S Routine 09/26/2024 5:08 AM CDT GLUCOSE POCT, B Routine 09/26/2024 4:04 AM CDT GLUCOSE POCT, B Routine 09/26/2024 3:21 AM CDT GLUCOSE POCT, B Routine 09/25/2024 8:47 PM CDT GLUCOSE POCT, B Routine 09/25/2024 6:32 PM CDT GLUCOSE POCT, B Routine 09/25/2024 2:57 PM CDT GLUCOSE POCT, B Routine 09/25/2024 12:09 PM CDT GLUCOSE POCT, B Routine 09/25/2024 7:41 AM CDT GLUCOSE POCT, B Routine 09/25/2024 6:24 AM CDT HEPATIC FUNCTION PANEL, S Routine 09/25/2024 6:21 AM CDT TACROLIMUS LEVEL, B Routine 09/25/2024 6 :21 AM CDT PROTHROMBIN TIME (PT), P Routine 09/25/2024 6:21 AM CDT CBC WITH DIFFERENTIAL, B Routine 09/25/2024 6:21 AM CDT BASIC METABOLIC PANEL, S/P Routine 09/25/2024 6:21 AM CDT GLUCOSE POCT, B Routine 09/25/2024 2:22 AM CDT GLUCOSE POCT, B Routine 09/24/2024 11:16 PM CDT GLUCOSE POCT, B Routine 09/24/2024 8:51 PM CDT GLUCOSE POCT, B Routine 09/24/2024 6:07 PM CDT GLUCOSE POCT, B Routine 09/24/2024 12:18 PM CDT GLUCOSE POCT, B Routine 09/24/2024 8:19 AM CDT GLUCOSE POCT, B Routine 09/24/2024 8:01 AM CDT GLUCOSE POCT, B Routine 09/24/2024 7:40 AM CDT HEPATIC FUNCTION PANEL, S Routine 09/24/2024 5:33 AM CDT TACROLIMUS LEVEL, B Routine 09/24/2024 5 :33 AM CDT PROTHROMBIN TIME (PT), P Routine 09/24/2024 5:33 AM CDT CBC WITH DIFFERENTIAL, B Routine 09/24/2024 5:33 AM CDT BASIC METABOLIC PANEL, S/P Routine 09/24/2024 5:33 AM CDT GLUCOSE POCT, B Routine 09/24/2024 2:44 AM CDT GLUCOSE POCT, B Routine 09/23/2024 10:53 PM CDT GLUCOSE POCT, B Routine 09/23/2024 7:40 PM CDT GLUCOSE POCT, B Routine 09/23/2024 5:37 PM CDT GLUCOSE POCT, B Routine 09/23/2024 4:35 PM CDT GLUCOSE POCT, B Routine 09/23/2024 12:31 PM CDT TANDB MARKER, TRANSPLANT, B Routine 09/23/2024 12:29 PM CDT GLUCOSE POCT, B Routine 09/23/2024 8:11 AM CDT DIPSTICK, U Routine 09/23/2024 8:04 AM CDT MICROSCOPIC AUTOMATED Routine 09/23/2024 8:04 AM CDT PH, U Routine 09/23/2024 8:04 AM CDT OSMOLALITY, U Routine 09/23/2024 8:04 AM CDT URINALYSIS WITH MICROSCOPIC Routine 09/23/2024 8:04 AM CDT TACROLIMUS LEVEL, B Timed 09/23/2024 6 :29 AM CDT PROTHROMBIN TIME (PT), P Routine 09/23/2024 6:29 AM CDT CBC WITH DIFFERENTIAL, B Routine 09/23/2024 6:29 AM CDT PHOSPHORUS (INORGANIC), S Timed 09/23/2024 6:29 AM CDT MAGNESIUM, S Timed 09/23/2024 6:29 AM CDT COMPREHENSIVE METABOLIC PANEL, S/P Routine 09/23/2024 6:29 AM CDT ECG Routine 09/22/2024 8:57 PM CDT PROTHROMBIN TIME (PT), P STAT 09/22/2024 8:43 PM CDT CBC WITHOUT DIFFERENTIAL, B STAT 09/22/2024 8:43 PM CDT BILIRUBIN DIRECT, S/P STAT 09/22/2024 8:43 PM CDT COMPREHENSIVE METABOLIC PANEL, S/P STAT 09/22/2024 8:43 PM CDT documented in this encounter Results * (ABNORMAL) Glucose, POCT (09/26/2024 2:05 PM CDT) [facility] Glucose, POCT, B 207(H) 70 - 140 mg/dL 09/26/2024 2:08 PM CDT PCDE Site Capillary 09/26/2024 2:08 PM CDT PCDE Last Intake <1 hour 09/26/2024 2:08 PM CDT PCDE Blood 09/26/2024 2:05 PM CDT 09/26/2024 2:08 PM CDT us Unknown Provider LAB POCT ORDERABLES-MANUAL Lupe l Result POC [employer] [facility] [address] [place] [address], [facility] PCDE [facility] POC [address] [place] [address] * (ABNORMAL) Glucose, POCT (09/26/2024 1:06 PM CDT) Glucose, POCT, B 165(H) 70 - 140 mg/dL 09/26/2024 1:08 PM CDT PCDE Site Capillary 09/26/2024 1:08 PM CDT PCDE Blood 09/26/2024 1:06 PM CDT 09/26/2024 1:09 PM CDT us Unknown Provider LAB POCT ORDERABLES-MANUAL Lupe l Result Performing Organization Address [facility]/ZIP Co de Phone Number POC [employer] [facility] [address] [place] [address], [facility] PCDE [facility] POC 200 [place] [address] * (ABNORMAL) Glucose, POCT (09/26/2024 12:19 PM CDT) Glucose, POCT, B 176(H) 70 - 140 mg/dL 09/26/2024 12:22 PM CDT PCDE Site Capillary 09/26/2024 12:22 PM CDT PCDE Last Intake <1 hour 09/26/2024 12:22 PM CDT PCDE Blood 09/26/2024 12:1 9 PM CDT 09/26/2024 12:22 PM CDT us Unknown Provider LAB POCT ORDERABLES-MANUAL Lupe l Result Performing Organization Address [facility] Co de Phone Number POC [employer] [facility] [address] [place] [address], [facility] PCDE [facility] POC [address] [place] [address] * (ABNORMAL) Glucose, POCT (09/26/2024 11:49 AM CDT) Glucose, POCT, B 144(H) 70 - 140 mg/dL 09/26/2024 11:52 AM CDT PCDE Site Capillary 09/26/2024 11:52 AM CDT PCDE Last Intake <1 hour 09/26/2024 11:52 AM CDT PCDE Blood 09/26/2024 11:4 9 AM CDT 09/26/2024 11:52 AM CDT us Unknown Provider LAB POCT ORDERABLES-MANUAL Lupe l Result [facility] [address] [place] [address], [facility] PCDE [facility] POC [address] [place] [address] * (ABNORMAL) Glucose, POCT (09/26/2024 11:25 AM CDT) Glucose, POCT, B 239(H) 70 - 140 mg/dL 09/26/2024 11:27 AM CDT PCDE Site Capillary 09/26/2024 11:27 AM CDT PCDE Last Intake 1-2 hours 09/26/2024 11:27 AM CDT PCDE Blood 09/26/2024 11:2 5 AM CDT 09/26/2024 11:27 AM CDT us Unknown Provider LAB POCT ORDERABLES-MANUAL Lupe l Result Performing Organization Address City/[facility]/ZIP Co de Phone Number [facility] [address] [place] [address], [facility] PCDE [facility] POC [address] [place] [address] * (ABNORMAL) Glucose, POCT (09/26/2024 11:01 AM CDT) Glucose, POCT, B 37(L) 70 - 140 mg/dL 09/26/2024 11:04 AM CDT PCDE Site Capillary 09/26/2024 11:04 AM CDT PCDE Last Intake > 4 hours 09/26/2024 11:04 AM CDT PCDE Blood 09/26/2024 11:0 1 AM CDT 09/26/2024 11:04 AM CDT us Unknown Provider LAB POCT ORDERABLES-MANUAL Lupe l Result [facility] [address] [place] [address], [facility] PCDE [facility] POC [address] [place] [address] * Glucose, POCT (09/26/2024 10:40 AM CDT) Glucose, POCT, B 105 70 - 140 mg/dL 09/26/2024 10:42 AM CDT PCDE Site Capillary 09/26/2024 10:42 AM CDT PCDE Blood 09/26/2024 10:4 0 AM CDT 09/26/2024 10:42 AM CDT us Unknown Provider LAB POCT ORDERABLES-MANUAL Lupe l Result Performing Organization Address City/[facility]/ZIP Co de Phone Number POC [employer] [facility] [address] [place] [address], [facility] PCDE [facility] POC [address] [place] [address] * (ABNORMAL) Glucose, POCT (09/26/2024 10:16 AM CDT) Glucose, POCT, B 57(L) 70 - 140 mg/dL 09/26/2024 10:18 AM CDT PCDE Site Capillary 09/26/2024 10:18 AM CDT PCDE Last Intake 1-2 hours 09/26/2024 10:18 AM CDT PCDE Blood 09/26/2024 10:1 6 AM CDT 09/26/2024 10:18 AM CDT us Unknown Provider LAB POCT ORDERABLES-MANUAL Lupe l Result Performing Organization Address City/[facility]/ZIP Co de Phone Number [facility]OC [employer] [facility] [address] [place] [address], [facility] PCDE [facility] POC [address] [place] [address] * Glucose, POCT (09/26/2024 10:01 AM CDT) Glucose, POCT, B 134 70 - 140 mg/dL 09/26/2024 10:03 AM CDT PCDE Site Capillary 09/26/2024 10:03 AM CDT PCDE Blood 09/26/2024 10:0 1 AM CDT 09/26/2024 10:03 AM CDT us Unknown Provider LAB POCT ORDERABLES-MANUAL Lupe l Result POC [employer] [facility] [address] [place] [address], [facility] PCDE [facility] POC [address] [place] [address] * (ABNORMAL) Glucose, POCT (09/26/2024 9:33 AM CDT) Glucose, POCT, B 64(L) 70 - 140 mg/dL 09/26/2024 9:34 AM CDT PCDE Site Capillary 09/26/2024 9:34 AM CDT PCDE Last Intake <1 hour 09/26/2024 9:34 AM CDT PCDE Blood 09/26/2024 9:33 AM CDT 09/26/2024 9:35 AM CDT us Unknown Provider LAB POCT ORDERABLES-MANUAL Lupe l Result Performing Organization Address City/[facility]/ZIP Co de Phone Number POC [employer] [facility] [address] [place] [address], [facility] PCDE [facility] POC [address] [place] [address] * Glucose, POCT (09/26/2024 9:00 AM CDT) Glucose, POCT, B 72 70 - 140 mg/dL 09/26/2024 9:07 AM CDT PCDE Site Capillary 09/26/2024 9:07 AM CDT PCDE Last Intake <1 hour 09/26/2024 9:07 AM CDT PCDE Blood 09/26/2024 9:00 AM CDT 09/26/2024 9:07 AM CDT us Unknown Provider LAB POCT ORDERABLES-MANUAL Lupe l Result Performing Organization Address City/[facility]/ZIP Co de Phone Number POC [employer] [facility] [address] [place] [address], [facility] PCDE [facility] POC [address] [place] [address] * Glucose, POCT (09/26/2024 8:15 AM CDT) Glucose, POCT, B 78 70 - 140 mg/dL 09/26/2024 8:17 AM CDT PCDE Site Capillary 09/26/2024 8:17 AM CDT PCDE Blood 09/26/2024 8:15 AM CDT 09/26/2024 8:18 AM CDT us Unknown Provider LAB POCT ORDERABLES-MANUAL Lupe l Result Performing Organization Address [facility]/ZIP Co de Phone Number POC [employer] [facility] [address] [place] [address], [facility] PCDE [facility] POC [address] [place] [address] * Glucose, POCT (09/26/2024 7:43 AM CDT) Glucose, POCT, B 78 70 - 140 mg/dL 09/26/2024 7:56 AM CDT PCDE Site Capillary 09/26/2024 7:56 AM CDT PCDE Last Intake > 4 hours 09/26/2024 7:56 AM CDT PCDE Blood 09/26/2024 7:43 AM CDT 09/26/2024 7:57 AM CDT us Unknown Provider LAB POCT ORDERABLES-MANUAL Lupe l Result Performing Organization Address [facility]/ZIP Co de Phone Number POC [employer] [facility] [address] [place] [address], [facility] PCDE [facility] POC [address] [place] [address] * (ABNORMAL) Glucose, POCT (09/26/2024 7:15 AM CDT) Glucose, POCT, B 57(L) 70 - 140 mg/dL 09/26/2024 7:18 AM CDT PCDE Site Capillary 09/26/2024 7:18 AM CDT PCDE Last Intake > 4 hours 09/26/2024 7:18 AM CDT PCDE Blood 09/26/2024 7:15 AM CDT 09/26/2024 7:19 AM CDT us Unknown Provider LAB POCT ORDERABLES-MANUAL Lupe l Result Performing Organization Address [facility] de Phone Number POC [employer] [facility] [address] [place] [address], [facility] PCDE [facility] POC [address] [place] [address] * Glucose, POCT (09/26/2024 6:19 AM CDT) Glucose, POCT, B 73 70 - 140 mg/dL 09/26/2024 6:24 AM CDT PCDE Site Capillary 09/26/2024 6:24 AM CDT PCDE Last Intake > 4 hours 09/26/2024 6:24 AM CDT PCDE Blood 09/26/2024 6:19 AM CDT 09/26/2024 6:25 AM CDT us Unknown Provider LAB POCT ORDERABLES-MANUAL Lupe l Result Performing Organization Address [facility] de Phone Number [facility] [employer] [facility] [address] [place] [address], [facility] PCDE [facility] POC [address] [place] [address] * (ABNORMAL) Tacrolimus, Trough (09/26/2024 5:15 AM CDT) Tacrolimus, Trough 4.3(L) 5.0-15.0 (Trough) ng/mL 09/26/2024 11:49 AM CDT [facility] Comment: ----ADDITIONAL INFORMATION---- Target steady-state trough concentrations vary depending on the type of transplant, concomitant immunosuppression, clinical/institutional protocols, and time post-transplant. Results should be interpreted in conjunction with this clinical information and any physical signs/symptoms of rejection/toxicity. Testing performed by Liquid Chromatography-Tandem Mass Spectrometry (LC-MS/MS). This test was developed and its performance characteristics determined by [facility] in a manner consistent with CLIA requirements. This test has not been cleared or approved by the U.S. Food and Drug Administration. Blood (Blood, Venous) 09/26/2024 5:15 AM CDT 09/26/2024 8:02 AM CDT us Katrin Dyer APRN.N.P., D.N.P. LAB BLOO D NON ADD-ON Final Result Performing Organization Address [facility] Co de Phone Number [facility] [address] [place] [address] [facility] [address] [place] [address] [place] [address] * (ABNORMAL) Prothrombin Time (PT) (09/26/2024 5:15 AM CDT) Prothrombin Time, P 9.3(L) 9.4 - 12.5 sec 09/26/2024 6:20 AM CDT DTL INR 0.8 0.9 - 1.1 09/26/2024 6:20 AM CDT DTL Comment: ----ADDITIONAL INFORMATION---- Standard intensity warfarin therapeutic range: 2.0 to 3.0 High intensity warfarin therapeutic range: 2.5 to 3.5 Blood (Blood, Venous) 09/26/2024 5:15 AM CDT 09/26/2024 5:41 AM CDT Kenny Purdy M.D. LAB BLOOD ADD-ON Final Result Performing Organization Address [facility] de Phone Number [facility] [address] [place] [address], [facility] DTL [facility] [address] [place] [address] * (ABNORMAL) Hepatic Function Panel (09/26/2024 5:15 AM CDT) Bilirubin, Total, S 0.6 0.0 - 1.2 mg/dL 09/26/2024 6:24 AM CDT DTL Bilirubin, Direct, S 0.4(H) 0.0 - 0.3 mg/dL 09/26/2024 6:24 AM CDT DTL Aspartate Aminotransferase (AST), S 123(H) 8 - 43 U/L 09/26/2024 6:24 AM CDT DTL Alanine Aminotransferase (ALT), S 163(H) 7 - 45 U/L 09/26/2024 6:24 AM CDT DTL Alkaline Phosphatase, S 409(H) 35 - 104 U/L 09/26/2024 6:24 AM CDT DTL Albumin, S 3.3(L) 3.5 - 5.0 g/dL 09/26/2024 6:24 AM CDT DTL Protein, Total, S 5.5(L) 6.3 - 7.9 g/dL 09/26/2024 6:24 AM CDT DTL Blood (Blood, Venous) 09/26/2024 5:15 AM CDT 09/26/2024 5:59 AM CDT Kenny Purdy M.D. LAB BLOOD ADD-ON Final Result [facility] [address] [place] [address], [facility] [address] [place] [address] * (ABNORMAL) CBC with Differential, Blood (09/26/2024 5:15 AM CDT) Hemoglobin 11.2(L) 11.6 - 15.0 g/dL 09/26/2024 5:52 AM CDT DTL Hematocrit 33.1(L) 35.5 - 44.9 % 09/26/2024 5:52 AM CDT DTL Erythrocytes 3.77(L) 3.92 - 5.13 x10(12)/L 09/26/2024 5:52 AM CDT DTL MCV 87.8 78.2 - 97.9 fL 09/26/2024 5:52 AM CDT DTL RBC Distrib Width 14.1 12.2 - 16.1 % 09/26/2024 5:52 AM CDT DTL Platelet Count 180 157 - 371 x10(9)/L 09/26/2024 5:52 AM CDT DTL Leukocytes 3.7 3.4 - 9.6 x10(9)/L 09/26/2024 5:52 AM CDT DTL Neutrophils 2.39 1.56 - 6.45 x10(9)/L 09/26/2024 5:52 AM CDT DH[facility] Lymphocytes 1.02 0.95 - 3.07 x10(9)/L 09/26/2024 5:52 AM CDT DTL Monocytes 0.26 0.26 - 0.81 x10(9)/L 09/26/2024 5:52 AM CDT DTL Eosinophils 0.03 0.03 - 0.48 x10(9)/L 09/26/2024 5:52 AM CDT DTL Basophils <0.03 0.01 - 0.08 x10(9)/L 09/26/2024 5:52 AM CDT DTL Blood (Blood, Venous) 09/26/2024 5:15 AM CDT 09/26/2024 5:41 AM CDT Kenny Purdy M.D. LAB BLOOD ADD-ON Final Result [facility] [address] [place] [address], [facility] DTL [facility] [address] [place] [address] * (ABNORMAL) Basic Metabolic Panel (09/26/2024 5:15 AM CDT) [facility] Signature Potassium, S 2.7(L) 3.6 - 5.2 mmol/L 09/26/2024 6:24 AM CDT DTL Sodium, S 143 135 - 145 mmol/L 09/26/2024 6:24 AM CDT DTL Chloride, S 109(H) 98 - 107 mmol/L 09/26/2024 6:24 AM CDT DTL Bicarbonate, S 23 22 - 29 mmol/L 09/26/2024 6:24 AM CDT DTL Anion Gap 11 7 - 15 09/26/2024 6:24 AM CDT DTL BUN (Blood Urea Nitrogen), S 16 6 - 21 mg/dL 09/26/2024 6:24 AM CDT DTL Creatinine 0.60 0.59 - 1.04 mg/dL 09/26/2024 6:24 AM CDT DTL Estimated GFR (eGFR) >90 >=60 mL/min/BSA 09/26/2024 6:24 AM CDT DTL Comment: Estimated GFR calculated using the 2020 CKD_EPI creatinine equation. Calcium, Total, S 8.6 8.6 - 10.0 mg/dL 09/26/2024 6:24 AM CDT DTL Glucose, S 64(L) 70 - 140 mg/dL 09/26/2024 6:24 AM CDT DTL Blood (Blood, Venous) 09/26/2024 5:15 AM CDT 09/26/2024 5:59 AM CDT Kenny Purdy M.D. LAB BLOOD ADD-ON Final Result Performing Organization Address City/[facility]/ZIP Co de Phone Number [facility] [address] [place] [address], [place] [address] * (ABNORMAL) Insulin (09/26/2024 5:08 AM CDT) Insulin, S 25.4(H) 2.6 - 24.9 mcIU/mL 09/26/2024 1:01 PM CDT DTL Blood 09/26/2024 5:08 AM CDT 09/26/2024 12:26 PM CDT Gerard King M.D. LAB BLOOD ADD-ON Final Res ult [facility] [address] [place] [address], [place] [address] * Glucose, POCT (09/26/2024 4:04 AM CDT) Glucose, POCT, B 95 70 - 140 mg/dL 09/26/2024 4:06 AM CDT PCDE Site Capillary 09/26/2024 4:06 AM CDT PCDE Last Intake 1-2 hours 09/26/2024 4:06 AM CDT PCDE Blood 09/26/2024 4:04 AM CDT 09/26/2024 4:07 AM CDT us Unknown Provider LAB POCT ORDERABLES-MANUAL Lupe l Result Performing Organization Address [facility] Co de Phone Number [facility] [employer] [facility] [address] [place] [address], [facility] PCDE [facility] POC [address] [place] [address] * Glucose, POCT (09/26/2024 3:21 AM CDT) Glucose, POCT, B 90 70 - 140 mg/dL 09/26/2024 3:24 AM CDT PCDE Site Capillary 09/26/2024 3:24 AM CDT PCDE Last Intake 2-3 hours 09/26/2024 3:24 AM CDT PCDE Blood 09/26/2024 3:21 AM CDT 09/26/2024 3:24 AM CDT us Unknown Provider LAB POCT ORDERABLES-MANUAL Lupe l Result Performing Organization Address [facility] de Phone Number [facility] [employer] [facility] [address] [place] [address], [facility] PCDE [facility] POC [address] [place] [address] * Glucose, POCT (09/25/2024 8:47 PM CDT) Glucose, POCT, B 138 70 - 140 mg/dL 09/25/2024 9:17 PM CDT PCDE Site Capillary 09/25/2024 9:17 PM CDT PCDE Blood 09/25/2024 8:47 PM CDT 09/25/2024 9:18 PM CDT us Unknown Provider LAB POCT ORDERABLES-MANUAL Lupe l Result Performing Organization Address City/[facility]/ZIP Co de Phone Number [facility] [employer] [facility] [address] [place], [place] [address] PCDE [facility] POC [address] [place] [address] * (ABNORMAL) Glucose, POCT (09/25/2024 6:32 PM CDT) Glucose, POCT, B 389(H) 70 - 140 mg/dL 09/25/2024 6:36 PM CDT PCDE Site Capillary 09/25/2024 6:36 PM CDT PCDE Last Intake 2-3 hours 09/25/2024 6:36 PM CDT PCDE Blood 09/25/2024 6:32 PM CDT 09/25/2024 6:37 PM CDT us Unknown Provider LAB POCT ORDERABLES-MANUAL Lupe l Result Performing Organization Address [facility] Co de Phone Number [facility] [employer] [facility] [address] [place], [place] [address] PCDE [facility] POC [address] [place] [address] * (ABNORMAL) Glucose, POCT (09/25/2024 2:57 PM CDT) Glucose, POCT, B 329(H) 70 - 140 mg/dL 09/25/2024 3:00 PM CDT PCDE Site Capillary 09/25/2024 3:00 PM CDT PCDE Last Intake 2-3 hours 09/25/2024 3:00 PM CDT PCDE Blood 09/25/2024 2:57 PM CDT 09/25/2024 3:00 PM CDT us Unknown Provider LAB POCT ORDERABLES-MANUAL Lupe l Result Performing Organization Address [facility] Co de Phone Number [facility] [employer] [facility] [address] [place], [place] [id number] [place] [address] PCDE [facility] POC [address] [place] [address] * (ABNORMAL) Glucose, POCT (09/25/2024 12:09 PM CDT) Glucose, POCT, B 255(H) 70 - 140 mg/dL 09/25/2024 12:12 PM CDT PCDE Site Capillary 09/25/2024 12:12 PM CDT PCDE Last Intake 2-3 hours 09/25/2024 12:12 PM CDT PCDE Blood 09/25/2024 12:0 9 PM CDT 09/25/2024 12:12 PM CDT us Unknown Provider LAB POCT ORDERABLES-MANUAL Lupe l Result Performing Organization Address [facility]/ZIP Co de Phone Number [facility] [employer] [facility] [address] [place] [address], [facility] PCDE [facility] POC [address] [place] [address] * (ABNORMAL) Glucose, POCT (09/25/2024 7:41 AM CDT) Glucose, POCT, B 357(H) 70 - 140 mg/dL 09/25/2024 7:43 AM CDT PCDE Site Capillary 09/25/2024 7:43 AM CDT PCDE Last Intake > 4 hours 09/25/2024 7:43 AM CDT PCDE Blood 09/25/2024 7:41 AM CDT 09/25/2024 7:44 AM CDT us Unknown Provider LAB POCT ORDERABLES-MANUAL Lupe l Result Performing Organization Address [facility]/ZIP Co de Phone Number POC [employer] [facility] [address] [place] [address], [facility] PCDE [facility] POC [address] [place] [address] * (ABNORMAL) Glucose, POCT (09/25/2024 6:24 AM CDT) Glucose, POCT, B 340(H) 70 - 140 mg/dL 09/25/2024 6:27 AM CDT PCDE Site Capillary 09/25/2024 6:27 AM CDT PCDE Last Intake > 4 hours 09/25/2024 6:27 AM CDT PCDE Blood 09/25/2024 6:24 AM CDT 09/25/2024 6:27 AM CDT us Unknown Provider LAB POCT ORDERABLES-MANUAL Lupe l Result Performing Organization Address [facility] Co de Phone Number POC [employer] [facility] [address] [place] [address], [place] PCDE [facility] [place] POC [address] [place] [address] * Tacrolimus, Trough (09/25/2024 6:21 AM CDT) Tacrolimus, Trough 6.7 5.0-15.0 (Trough) ng/mL 09/25/2024 3:10 PM CDT [facility] Comment: ----ADDITIONAL INFORMATION---- Target steady-state trough concentrations vary depending on the type of transplant, concomitant immunosuppression, clinical/institutional protocols, and time post-transplant. Results should be interpreted in conjunction with this clinical information and any physical signs/symptoms of rejection/toxicity. Testing performed by Liquid Chromatography-Tandem Mass Spectrometry (LC-MS/MS). This test was developed and its performance characteristics determined by [facility] in a manner consistent with CLIA requirements. This test has not been cleared or approved by the [place]. Food and Drug Administration. Blood (Blood, Venous) 09/25/2024 6:21 AM CDT 09/25/2024 12:06 PM CDT Sofi Tucker APRN, C.N.P., D.N.P. LAB BLOO D NON ADD-ON Final Result Performing Organization Address [facility] Co de Phone Number [facility] [place] [address] [place] [address] [facility] [address] [place] [address] [place] [address] * (ABNORMAL) Prothrombin Time (PT) (09/25/2024 6:21 AM CDT) Prothrombin Time, P 9.1(L) 9.4 - 12.5 sec 09/25/2024 6:51 AM CDT DTL INR 0.8 0.9 - 1.1 09/25/2024 6:51 AM CDT DTL Comment: ----ADDITIONAL INFORMATION---- Standard intensity warfarin therapeutic range: 2.0 to 3.0 High intensity warfarin therapeutic range: 2.5 to 3.5 Blood (Blood, Venous) 09/25/2024 6:21 AM CDT 09/25/2024 6:34 AM CDT Kenny Purdy M.D. LAB BLOOD ADD-ON Final Result Performing Organization Address [facility]/State/[facility] Co de Phone Number [facility] [address] [place] [address], [facility] DTL [facility] [address] [place] [address] * (ABNORMAL) Hepatic Function Panel (09/25/2024 6:21 AM CDT) Bilirubin, Total, S 0.8 0.0 - 1.2 mg/dL 09/25/2024 7:06 AM CDT DTL Bilirubin, Direct, S 0.4(H) 0.0 - 0.3 mg/dL 09/25/2024 7:06 AM CDT DTL Aspartate Aminotransferase (AST), S 112(H) 8 - 43 U/L 09/25/2024 7:06 AM CDT DTL Alanine Aminotransferase (ALT), S 161(H) 7 - 45 U/L 09/25/2024 7:06 AM CDT DTL Alkaline Phosphatase, S 435(H) 35 - 104 U/L 09/25/2024 7:06 AM CDT DTL Albumin, S 3.2(L) 3.5 - 5.0 g/dL 09/25/2024 7:06 AM CDT DTL Protein, Total, S 5.2(L) 6.3 - 7.9 g/dL 09/25/2024 7:06 AM CDT DTL Blood (Blood, Venous) 09/25/2024 6:21 AM CDT 09/25/2024 6:50 AM CDT Kenny Purdy M.D. LAB BLOOD ADD-ON Final Result [facility] [address] [place] [address], [facility] DTL [facility] [address] [place] [address] * (ABNORMAL) CBC with Differential, Blood (09/25/2024 6:21 AM CDT) Hemoglobin 11.7 11.6 - 15.0 g/dL 09/25/2024 6:46 AM CDT DTL Hematocrit 35.0(L) 35.5 - 44.9 % 09/25/2024 6:46 AM CDT DTL Erythrocytes 3.97 3.92 - 5.13 x10(12)/L 09/25/2024 6:46 AM CDT DTL MCV 88.2 78.2 - 97.9 fL 09/25/2024 6:46 AM CDT DTL RBC Distrib Width 14.3 12.2 - 16.1 % 09/25/2024 6:46 AM CDT DTL Platelet Count 180 157 - 371 x10(9)/L 09/25/2024 6:46 AM CDT DTL Leukocytes 3.0(L) 3.4 - 9.6 x10(9)/L 09/25/2024 6:46 AM CDT DTL Neutrophils 1.44(L) 1.56 - 6.45 x10(9)/L 09/25/2024 6:46 AM CDT DHPM Lymphocytes 1.26 0.95 - 3.07 x10(9)/L 09/25/2024 6:46 AM CDT DTL Monocytes 0.23(L) 0.26 - 0.81 x10(9)/L 09/25/2024 6:46 AM CDT DTL Eosinophils 0.06 0.03 - 0.48 x10(9)/L 09/25/2024 6:46 AM CDT DTL Basophils <0.03 0.01 - 0.08 x10(9)/L 09/25/2024 6:46 AM CDT DTL Blood (Blood, Venous) 09/25/2024 6:21 AM CDT 09/25/2024 6:35 AM CDT Kenny Purdy M.D. LAB BLOOD ADD-ON Final Result [facility] [address] [place] [address], [facility] DTL [facility] [address] [place] [address] [facility] [address] [place] [address] * (ABNORMAL) Basic Metabolic Panel (09/25/2024 6:21 AM CDT) [facility] Potassium, S 3.9 3.6 - 5.2 mmol/L 09/25/2024 7:06 AM CDT DTL Sodium, S 137 135 - 145 mmol/L 09/25/2024 7:06 AM CDT DTL Chloride, S 105 98 - 107 mmol/L 09/25/2024 7:06 AM CDT DTL Bicarbonate, S 22 22 - 29 mmol/L 09/25/2024 7:06 AM CDT DTL Anion Gap 10 7 - 15 09/25/2024 7:06 AM CDT DTL BUN (Blood Urea Nitrogen), S 16 6 - 21 mg/dL 09/25/2024 7:06 AM CDT DTL Creatinine 0.54(L) 0.59 - 1.04 mg/dL 09/25/2024 7:06 AM CDT DTL Estimated GFR (eGFR) >90 >=60 mL/min/BSA 09/25/2024 7:06 AM CDT DTL Comment: Estimated GFR calculated using the 2020 CKD_EPI creatinine equation. Calcium, Total, S 8.6 8.6 - 10.0 mg/dL 09/25/2024 7:06 AM CDT DTL Glucose, S 368(H) 70 - 140 mg/dL 09/25/2024 7:06 AM CDT DTL Blood (Blood, Venous) 09/25/2024 6:21 AM CDT 09/25/2024 6:50 AM CDT Kenny Mohammad Bilal Khalid M.D. LAB BLOOD ADD-ON Final Result Performing Organization Address City/[facility]/ZIP Co de Phone Number [facility] [address] [place] [address], [facility] DTL [facility] [address] [place] [address] * (ABNORMAL) Glucose, POCT (09/25/2024 2:22 AM CDT) Glucose, POCT, B 146(H) 70 - 140 mg/dL 09/25/2024 2:29 AM CDT PCDE Site Capillary 09/25/2024 2:29 AM CDT PCDE Last Intake > 4 hours 09/25/2024 2:29 AM CDT PCDE Blood 09/25/2024 2:22 AM CDT 09/25/2024 2:29 AM CDT us Unknown Provider LAB POCT ORDERABLES-MANUAL Lupe l Result Performing Organization Address [facility] Co de Phone Number [facility] [address] [place] [address], [facility] PCDE [facility] 200 [place] [address] * (ABNORMAL) Glucose, POCT (09/24/2024 11:16 PM CDT) Glucose, POCT, B 256(H) 70 - 140 mg/dL 09/24/2024 11:21 PM CDT PCDE Site Capillary 09/24/2024 11:21 PM CDT PCDE Last Intake 1-2 hours 09/24/2024 11:21 PM CDT PCDE Blood 09/24/2024 11:1 6 PM CDT 09/24/2024 11:22 PM CDT us Unknown Provider LAB POCT ORDERABLES-MANUAL Lupe l Result Performing Organization Address [facility]/ZIP Co de Phone Number [facility] [employer] [facility] [address] [place] [address], [facility] PCDE [facility] [address] [place] [address] * (ABNORMAL) Glucose, POCT (09/24/2024 8:51 PM CDT) Glucose, POCT, B 333(H) 70 - 140 mg/dL 09/24/2024 9:05 PM CDT PCDE Site Capillary 09/24/2024 9:05 PM CDT PCDE Last Intake 1-2 hours 09/24/2024 9:05 PM CDT PCDE Blood 09/24/2024 8:51 PM CDT 09/24/2024 9:05 PM CDT us Unknown Provider LAB POCT ORDERABLES-MANUAL Lupe l Result Performing Organization Address City/[facility]/ZIP Co de Phone Number [facility] [employer] [address] PCDE [facility] 200 [place] [address] * Glucose, POCT (09/24/2024 6:07 PM CDT) Glucose, POCT, B 124 70 - 140 mg/dL 09/24/2024 6:09 PM CDT PCDE Site Capillary 09/24/2024 6:09 PM CDT PCDE Blood 09/24/2024 6:07 PM CDT 09/24/2024 6:09 PM CDT us Unknown Provider LAB POCT ORDERABLES-MANUAL Lupe l Result Performing Organization Address City/[facility]/ZIP Co de Phone Number [facility] [employer] [facility] [address] [place] [address], [facility] PCDE [facility] [address] [place] [address] * (ABNORMAL) Glucose, POCT (09/24/2024 12:18 PM CDT) Glucose, POCT, B 227(H) 70 - 140 mg/dL 09/24/2024 12:31 PM CDT PCDE Site Capillary 09/24/2024 12:31 PM CDT PCDE Last Intake 2-3 hours 09/24/2024 12:31 PM CDT PCDE Blood 09/24/2024 12:1 8 PM CDT 09/24/2024 12:31 PM CDT us Unknown Provider LAB POCT ORDERABLES-MANUAL Lupe l Result [facility] [facility] [address] [place] [address], [facility] PCDE [facility] [address] [place] [address] * Glucose, POCT (09/24/2024 8:19 AM CDT) Glucose, POCT, B 117 70 - 140 mg/dL 09/24/2024 8:22 AM CDT PCDE Site Capillary 09/24/2024 8:22 AM CDT PCDE Last Intake <1 hour 09/24/2024 8:22 AM CDT PCDE Blood 09/24/2024 8:19 AM CDT 09/24/2024 8:22 AM CDT us Unknown Provider LAB POCT ORDERABLES-MANUAL Lupe l Result [facility] [address] [place] [address], [facility] PCDE [facility] [address] [place] [address] * Glucose, POCT (09/24/2024 8:01 AM CDT) Glucose, POCT, B 100 70 - 140 mg/dL 09/24/2024 8:02 AM CDT PCDE Site Capillary 09/24/2024 8:02 AM CDT PCDE Last Intake <1 hour 09/24/2024 8:02 AM CDT PCDE Blood 09/24/2024 8:01 AM CDT 09/24/2024 8:03 AM CDT us Unknown Provider LAB POCT ORDERABLES-MANUAL Lupe l Result [facility] [address] [place] [address], [facility] PCDE [facility] [address] [place] [address] * Glucose, POCT (09/24/2024 7:40 AM CDT) Glucose, POCT, B 77 70 - 140 mg/dL 09/24/2024 7:44 AM CDT PCDE Site Capillary 09/24/2024 7:44 AM CDT PCDE Last Intake > 4 hours 09/24/2024 7:44 AM CDT PCDE Blood 09/24/2024 7:40 AM CDT 09/24/2024 7:45 AM CDT Unknown Provider LAB POCT ORDERABLES-MANUAL Lupe l Result [facility] [employer] [facility] [address] [place] [address], [facility] PCDE [facility] 200 [place] [address] * (ABNORMAL) Prothrombin Time (PT) (09/24/2024 5:33 AM CDT) Prothrombin Time, P 9.3(L) 9.4 - 12.5 sec 09/24/2024 6:07 AM CDT DTL INR 0.8 0.9 - 1.1 09/24/2024 6:07 AM CDT DTL Comment: ----ADDITIONAL INFORMATION---- Standard intensity warfarin therapeutic range: 2.0 to 3.0 High intensity warfarin therapeutic range: 2.5 to 3.5 Blood (Blood, Venous) 09/24/2024 5:33 AM CDT 09/24/2024 5:49 AM CDT Kenny Purdy M.D. LAB BLOOD ADD-ON Final Result [facility] [address] [place] [address], [facility] DTL [facility] [address] [place] [address] * (ABNORMAL) Hepatic Function Panel (09/24/2024 5:33 AM CDT) Bilirubin, Total, S 1.1 0.0 - 1.2 mg/dL 09/24/2024 6:24 AM CDT DTL Bilirubin, Direct, S 0.6(H) 0.0 - 0.3 mg/dL 09/24/2024 6:24 AM CDT DTL Aspartate Aminotransferase (AST), S 84(H) 8 - 43 U/L 09/24/2024 6:24 AM CDT DTL Alanine Aminotransferase (ALT), S 188(H) 7 - 45 U/L 09/24/2024 6:24 AM CDT DTL Alkaline Phosphatase, S 463(H) 35 - 104 U/L 09/24/2024 6:24 AM CDT DTL Albumin, S 3.3(L) 3.5 - 5.0 g/dL 09/24/2024 6:24 AM CDT DTL Protein, Total, S 5.5(L) 6.3 - 7.9 g/dL 09/24/2024 6:24 AM CDT DTL Blood (Blood, Venous) 09/24/2024 5:33 AM CDT 09/24/2024 6:05 AM CDT Kenny Purdy M.D. LAB BLOOD ADD-ON Final Result [place] [address] [place] [address], [facility] [place] [address] [place] [address] * CBC with Differential, Blood (09/24/2024 5:33 AM CDT) Hemoglobin 12.3 11.6 - 15.0 g/dL 09/24/2024 5:59 AM CDT DTL Hematocrit 36.4 35.5 - 44.9 % 09/24/2024 5:59 AM CDT DTL Erythrocytes 4.20 3.92 - 5.13 x10(12)/L 09/24/2024 5:59 AM CDT DTL MCV 86.7 78.2 - 97.9 fL 09/24/2024 5:59 AM CDT DTL RBC Distrib Width 14.1 12.2 - 16.1 % 09/24/2024 5:59 AM CDT DTL Platelet Count 208 157 - 371 x10(9)/L 09/24/2024 5:59 AM CDT DTL Leukocytes 5.1 3.4 - 9.6 x10(9)/L 09/24/2024 5:59 AM CDT DTL Neutrophils 2.78 1.56 - 6.45 x10(9)/L 09/24/2024 5:59 AM CDT DHPM Lymphocytes 1.96 0.95 - 3.07 x10(9)/L 09/24/2024 5:59 AM CDT DTL Monocytes 0.33 0.26 - 0.81 x10(9)/L 09/24/2024 5:59 AM CDT DTL Eosinophils 0.06 0.03 - 0.48 x10(9)/L 09/24/2024 5:59 AM CDT DTL Basophils <0.03 0.01 - 0.08 x10(9)/L 09/24/2024 5:59 AM CDT DTL Blood (Blood, Venous) 09/24/2024 5:33 AM CDT 09/24/2024 5:50 AM CDT Kenny Purdy M.D. LAB BLOOD ADD-ON Final Result [facility] [address] [place] [address], [facility] DTL [facility] [address] [place] [address] [facility] [address] [place] [address] * (ABNORMAL) Basic Metabolic Panel (09/24/2024 5:33 AM CDT) Potassium, S 3.8 3.6 - 5.2 mmol/L 09/24/2024 6:24 AM CDT DTL Sodium, S 137 135 - 145 mmol/L 09/24/2024 6:24 AM CDT DTL Chloride, S 104 98 - 107 mmol/L 09/24/2024 6:24 AM CDT DTL Bicarbonate, S 23 22 - 29 mmol/L 09/24/2024 6:24 AM CDT DTL Anion Gap 10 7 - 15 09/24/2024 6:24 AM CDT DTL BUN (Blood Urea Nitrogen), S 11 6 - 21 mg/dL 09/24/2024 6:24 AM CDT DTL Creatinine 0.59 0.59 - 1.04 mg/dL 09/24/2024 6:24 AM CDT DTL Estimated GFR (eGFR) >90 >=60 mL/min/BSA 09/24/2024 6:24 AM CDT DTL Comment: Estimated GFR calculated using the 2020 CKD_EPI creatinine equation. Calcium, Total, S 8.3(L) 8.6 - 10.0 mg/dL 09/24/2024 6:24 AM CDT DTL Glucose, S 170(H) 70 - 140 mg/dL 09/24/2024 6:24 AM CDT DTL Blood (Blood, Venous) 09/24/2024 5:33 AM CDT 09/24/2024 6:05 AM CDT Kenny Purdy M.D. LAB BLOOD ADD-ON Final Result [address] [address], [place] [address] * Tacrolimus, Trough (09/24/2024 5:33 AM CDT) Tacrolimus, Trough 7.9 5.0-15.0 (Trough) ng/mL 09/24/2024 3:18 PM CDT [facility] Comment: ----ADDITIONAL INFORMATION---- Target steady-state trough concentrations vary depending on the type of transplant, concomitant immunosuppression, clinical/institutional protocols, and time post-transplant. Results should be interpreted in conjunction with this clinical information and any physical signs/symptoms of rejection/toxicity. Testing performed by Liquid Chromatography-Tandem Mass Spectrometry (LC-MS/MS). This test was developed and its performance characteristics determined by [facility] in a manner consistent with CLIA requirements. This test has not been cleared or approved by the U.S. Food and Drug Administration. Blood (Blood, Venous) 09/24/2024 5:33 AM CDT 09/24/2024 9:21 AM CDT Sofi Tucker APRN C.N.P., Slick.N.P. LAB BLOO D NON ADD-ON Final Result Performing Organization Address City/[facility]/ZIP Co de Phone Number [facility] [address] [place] [address] [facility] [address] [place] [address] [place] [address] * (ABNORMAL) Glucose, POCT (09/24/2024 2:44 AM CDT) Glucose, POCT, B 164(H) 70 - 140 mg/dL 09/24/2024 2:51 AM CDT PCDE Site Capillary 09/24/2024 2:51 AM CDT PCDE Blood 09/24/2024 2:44 AM CDT 09/24/2024 2:51 AM CDT Unknown Provider LAB POCT ORDERABLES-MANUAL Lupe l Result Performing Organization Address [facility] Co de Phone Number [facility] [employer] [facility] [address] PCDE [facility] POC [address] [place] [address] * (ABNORMAL) Glucose, POCT (09/23/2024 10:53 PM CDT) Glucose, POCT, B 154(H) 70 - 140 mg/dL 09/23/2024 11:09 PM CDT PCDE Blood 09/23/2024 10:5 3 PM CDT 09/23/2024 11:10 PM CDT Unknown Provider LAB POCT ORDERABLES-MANUAL Lupe l Result Performing Organization Address City/[facility]/ZIP Co de Phone Number [facility] [address] [place] [address], [facility] PCDE [facility] [address] [place] [address] * (ABNORMAL) Glucose, POCT (09/23/2024 7:40 PM CDT) Glucose, POCT, B 292(H) 70 - 140 mg/dL 09/23/2024 7:42 PM CDT PCDE Site Capillary 09/23/2024 7:42 PM CDT PCDE Last Intake 3-4 hours 09/23/2024 7:42 PM CDT PCDE Blood 09/23/2024 7:40 PM CDT 09/23/2024 7:42 PM CDT us Unknown Provider LAB POCT ORDERABLES-MANUAL Lupe l Result Performing Organization Address [facility]/ZIP Co de Phone Number [facility] [address] [place] [address], [facility] PCDE [facility] [address] [place] [address] * (ABNORMAL) Glucose, POCT (09/23/2024 5:37 PM CDT) Glucose, POCT, B 331(H) 70 - 140 mg/dL 09/23/2024 5:38 PM CDT PCDE Site Capillary 09/23/2024 5:38 PM CDT PCDE Blood 09/23/2024 5:37 PM CDT 09/23/2024 5:39 PM CDT us Unknown Provider LAB POCT ORDERABLES-MANUAL Lupe l Result [facility] [address] [place] [address], [facility] PCDE [facility] [address] [place] [address] * (ABNORMAL) Glucose, POCT (09/23/2024 4:35 PM CDT) Glucose, POCT, B 367(H) 70 - 140 mg/dL 09/23/2024 4:36 PM CDT PCDE Site Capillary 09/23/2024 4:36 PM CDT PCDE Blood 09/23/2024 4:35 PM CDT 09/23/2024 4:37 PM CDT Unknown Provider LAB POCT ORDERABLES-MANUAL Lupe l Result Performing Organization Address [facility]/ZIP Co de Phone Number [facility] [address] [place] [address], [facility] PCDE [facility] [address] [place] [address] * (ABNORMAL) Glucose, POCT (09/23/2024 12:31 PM CDT) Pathologist [facility] Glucose, POCT, B 296(H) 70 - 140 mg/dL 09/23/2024 12:33 PM CDT PCDE Site Capillary 09/23/2024 12:33 PM CDT PCDE Last Intake 2-3 hours 09/23/2024 12:33 PM CDT PCDE Blood 09/23/2024 12:3 1 PM CDT 09/23/2024 12:34 PM CDT us Unknown Provider LAB POCT ORDERABLES-MANUAL Lupe l Result Performing Organization Address [facility] Co de Phone Number [facility] [address] [place] [address], [facility] PCDE [facility] POC [address] [place] [address] * (ABNORMAL) T and B Marker, Transplant (09/23/2024 12:29 PM CDT) CD45 Total Lymph Count 0.78(L) 0.82 - 2.84 thou/mcL 09/24/2024 2:04 PM CDT [facility] % CD3 (T Cells) 85 58 - 86 % 2:04 PM CDT [facility] CD3 (T Cells) 662 550 - 2202 cells/mcL 09/24/2024 2:04 PM CDT [facility] % CD4 (T Cells) 22(L) 32 - 64 % 2:04 PM CDT [facility] CD4 (T Cells) 168(L) 365 - 1437 cells/mcL 09/24/2024 2:04 PM CDT [facility] % CD8 (T Cells) 59(H) 15 - 40 % 2:04 PM CDT [facility] CD8 T Cells 461 171 - 846 cells/mcL 09/24/2024 2:04 PM CDT [facility] % CD19 (B Cells) 12 7 - 24 % 09/25/19 2:04 PM CDT [facility] CD19 (B Cells) 93 81 - 409 cells/mcL 09/24/2024 2:04 PM CDT [facility] % CD16+CD56 (NK cells) 2(L) 4 - 28 % 09/24/2024 2:04 PM CDT [facility] CD16+CD56 (NK cells) 19(L) 59 - 513 cells/mcL 09/24/2024 2:04 PM CDT [facility] 4/8 Ratio 0.4(L) >=0.9 09/24/2024 2:04 PM CDT [facility] Comment: ----ADDITIONAL INFORMATION---- This test was developed using an analyte specific reagent. Its performance characteristics were determined by [facility] in a manner consistent with CLIA requirements. This test has not been cleared or approved by the U.S. Food and Drug Administration. Blood (Blood, Venous) 09/23/2024 12:29 PM CDT 09/24/2024 8:58 AM CDT us Gerard King M.D. LAB BLOOD ADD-ON Final Res ult [facility] [address] [place] [address] [facility] [address] [place] [address] [place] [address] * (ABNORMAL) Glucose, POCT (09/23/2024 8:11 AM CDT) Glucose, POCT, B 286(H) 70 - 140 mg/dL 09/23/2024 8:13 AM CDT PCDE Site Capillary 09/23/2024 8:13 AM CDT PCDE Blood 09/23/2024 8:11 AM CDT 09/23/2024 8:13 AM CDT us Unknown Provider LAB POCT ORDERABLES-MANUAL Lupe l Result Performing Organization Address [facility] Co de Phone Number [facility] [employer] [address] [place] [address], [facility] PCDE [facility] [address] [place] [address] * (ABNORMAL) Dipstick, Urine (09/23/2024 8:04 AM CDT) Hemoglobin, QL, U Negative Negative 09/23/2024 8:43 AM CDT DTL Leukocyte Esterase, U Negative Negative 09/23/2024 8:43 AM CDT DTL Nitrite, U Negative Negative 09/23/2024 8:43 AM CDT DTL Ketone, U 10(A) Negative mg/dL 09/23/2024 8:43 AM CDT DTL Glucose, U >=1000(A) Negative mg/dL 09/23/2024 8:43 AM CDT DTL Urine 09/23/2024 8:04 AM CDT 09/23/2024 8:14 AM CDT Sofi Tucker APRN, C.N.P., D.N.P. LAB URIN E ORDERABLES Final Result Performing Organization Address [facility] de Phone Number [facility] [address] [place] [address] * pH, Urine (09/23/2024 8:04 AM CDT) pH, U 6.5 4.5 - 8.0 09/23/2024 8:4 8 AM CDT DTL Urine 09/23/2024 8:04 AM CDT 09/23/2024 8:14 AM CDT Sofi Tucker APRN, C.N.P., D.N.P. LAB URIN E ORDERABLES Final Result Performing Organization Address [facility] Co de Phone Number [facility] [address] [facility] 200 [place] [address] * Microscopic Automated (09/23/2024 8:04 AM CDT) Pathologist [facility] Microscopy Normal 09/23/2024 8:43 AM CDT DTL RBC None Seen <3 /hpf 09/23/2024 8:43 AM CDT DTL WBC None Seen /hpf 09/23/2024 8:43 AM CDT DTL Comment: ----REFERENCE VALUE---- <4 (Males) <11 (Females) Urine 09/23/2024 8:04 AM CDT 09/23/2024 8:14 AM CDT Sofi Tucker APRN, C.N.P., D.N.P. LAB URIN E ORDERABLES Final Result [facility] [address] [place], [place] [address] [place] [address] 200 [place] [address] * Osmolality, Urine (09/23/2024 8:04 AM CDT) [facility] Osmolality, U 806 150 - 1150 mOsm/kg 09/23/2024 8:48 AM CDT DT Urine 09/23/2024 8:04 AM CDT 09/23/2024 8:14 AM CDT Sofi Tucker APRN, C.N.P., D.N.P. LAB URIN E ORDERABLES Final Result [facility] [address] [place] [address] * Urinalysis, with Microscopic: Urine, Midstream (09/23/2024 8:04 AM CDT) Pathologist [facility] Source Urine, Urine, Midstream 09/23/2024 8:14 AM CDT DTL Color, U Yellow 09/23/2024 8:14 AM CDT DTL Clarity, U Clear 09/23/2024 8:14 AM CDT DTL Protein, U 16 <26 mg/dL 09/23/2024 9:12 AM CDT DTL Protein/Osmol ality 0.20 <0.42 ratio 09/23/2024 9:12 AM CDT DTL Predicted 24 HR Protein, U 154 <229 mg/24 h 09/23/2024 9:12 AM CDT DTL Predicted Range 38-624 mg/24 h 09/23/2024 9:12 AM CDT DTL Urine (Urine, Midstream) 09/23/2024 8:04 AM CDT 09/23/2024 8:14 AM CDT Sofi Tucker APRN, C.N.P., D.N.P. LAB URIN E ORDERABLES Final Result Performing Organization Address City/[facility]/ZIP Co de Phone Number [facility] [address] [place] [address], [facility] 200 [place] [address] * Phosphorus Inorganic (09/23/2024 6:29 AM CDT) [facility] Phosphorus (Inorganic), S 2.9 2.5 - 4.5 mg/dL 09/23/2024 7:36 AM CDT DTL Blood (Blood, Venous) 09/23/2024 6:29 AM CDT 09/23/2024 7:21 AM CDT Juan Mayo M.D. LAB BLOOD ADD-ON Final Resu lt Performing Organization Address City/[facility]/ZIP Co de Phone Number [facility] [address] [place] [address], [facility] [place] [address] * Magnesium (09/23/2024 6:29 AM CDT) Pathologist [facility] Magnesium, S 1.9 1.7 - 2.3 mg/dL 09/23/2024 7:36 AM CDT DTL Blood (Blood, Venous) 09/23/2024 6:29 AM CDT 09/23/2024 7:21 AM CDT Juan Mayo M.D. LAB BLOOD ADD-ON Final Resu lt Performing Organization Address City/[facility]/ZIP Co de Phone Number [facility] [address] [place] [address], [facility] [address] [place] [address] * Tacrolimus, Trough (09/23/2024 6:29 AM CDT) [facility] Tacrolimus, Trough 7.3 5.0-15.0 (Trough) ng/mL 09/23/2024 1:12 PM CDT [facility] Comment: ----ADDITIONAL INFORMATION---- Target steady-state trough concentrations vary depending on the type of transplant, concomitant immunosuppression, clinical/institutional protocols, and time post-transplant. Results should be interpreted in conjunction with this clinical information and any physical signs/symptoms of rejection/toxicity. Testing performed by Liquid Chromatography-Tandem Mass Spectrometry (LC-MS/MS). This test was developed and its performance characteristics determined by [facility] in a manner consistent with CLIA requirements. This test has not been cleared or approved by the [place]. Food and Drug Administration. Blood (Blood, Venous) 09/23/2024 6:29 AM CDT 09/23/2024 8:18 AM CDT Juan Mayo M.D. LAB BLOOD NON ADD-ON Final Result Performing Organization Address City/[facility]/ZIP Co de Phone Number [facility] [address] [place] [address] [facility] [address] [place] [address] [place] [address] * Prothrombin Time (PT) (09/23/2024 6:29 AM CDT) [facility] Prothrombin Time, P 10.4 9.4 - 12.5 sec 09/23/2024 7:39 AM CDT DTL INR 0.9 0.9 - 1.1 09/23/2024 7:39 AM CDT DTL Comment: ----ADDITIONAL INFORMATION---- Standard intensity warfarin therapeutic range: 2.0 to 3.0 High intensity warfarin therapeutic range: 2.5 to 3.5 Blood (Blood, Venous) 09/23/2024 6:29 AM CDT 09/23/2024 7:20 AM CDT us Juan Mayo M.D. LAB BLOOD ADD-ON Final Resu lt [facility] [address] [place] [address], [facility] [address] [place] [address] * (ABNORMAL) Comprehensive Metabolic Panel (09/23/2024 6:29 AM CDT) [facility] Potassium, S 4.3 3.6 - 5.2 mmol/L 09/23/2024 7:40 AM CDT DTL Sodium, S 137 135 - 145 mmol/L 09/23/2024 7:40 AM CDT DTL Chloride, S 101 98 - 107 mmol/L 09/23/2024 7:40 AM CDT DTL Bicarbonate, S 25 22 - 29 mmol/L 09/23/2024 7:40 AM CDT DTL Anion Gap 11 7 - 15 09/23/2024 7:40 AM CDT DTL BUN (Blood Urea Nitrogen), S 6 6 - 21 mg/dL 09/23/2024 7:40 AM CDT DTL Creatinine 0.44(L) 0.59 - 1.04 mg/dL 09/23/2024 7:40 AM CDT DTL Estimated GFR (eGFR) >90 >=60 mL/min/BS A 09/23/2024 7:40 AM CDT DTL Comment: Estimated GFR calculated using the 2020 CKD_EPI creatinine equation. Calcium, Total, S 8.5(L) 8.6 - 10.0 mg/dL 09/23/2024 7:40 AM CDT DTL Glucose, S 270(H) 70 - 140 mg/dL 09/23/2024 7:40 AM CDT DTL Protein, Total, S 5.9(L) 6.3 - 7.9 g/dL 09/23/2024 7:40 AM CDT DTL Albumin, S 3.6 3.5 - 5.0 g/dL 09/23/2024 7:40 AM CDT DTL Aspartate Aminotransferase (AST), S 111(H) 8 - 43 U/L 09/23/2024 7:40 AM CDT DTL Alkaline Phosphatase, S 471(H) 35 - 104 U/L 09/23/2024 7:40 AM CDT DTL Alanine Aminotransferase (ALT), S 258(H) 7 - 45 U/L 09/23/2024 7:40 AM CDT DTL Bilirubin, Total, S 2.4(H) 0.0 - 1.2 mg/dL 09/23/2024 7:40 AM CDT DTL Blood (Blood, Venous) 09/23/2024 6:29 AM CDT 09/23/2024 7:21 AM CDT us Juan Mayo M.D. LAB BLOOD ADD-ON Final Resu lt [facility] [address] [place] [address], [facility] [address] [place] [address] * CBC with Differential, Blood (09/23/2024 6:29 AM CDT) Hemoglobin 13.3 11.6 - 15.0 g/dL 09/23/2024 7:30 AM CDT DTL Hematocrit 39.6 35.5 - 44.9 % 09/23/2024 7:30 AM CDT DTL Erythrocytes 4.55 3.92 - 5.13 x10(12)/L 09/23/2024 7:30 AM CDT DTL MCV 87.0 78.2 - 97.9 fL 09/23/2024 7:30 AM CDT DTL RBC Distrib Width 13.9 12.2 - 16.1 % 09/23/2024 7:30 AM CDT DTL Platelet Count 169 157 - 371 x10(9)/L 09/23/2024 7:30 AM CDT DTL Leukocytes 6.0 3.4 - 9.6 x10(9)/L 09/23/2024 7:30 AM CDT DTL Neutrophils 4.24 1.56 - 6.45 x10(9)/L 09/23/2024 7:30 AM CDT DHPM Lymphocytes 1.43 0.95 - 3.07 x10(9)/L 09/23/2024 7:30 AM CDT DTL Monocytes 0.30 0.26 - 0.81 x10(9)/L 09/23/2024 7:30 AM CDT DTL Eosinophils 0.04 0.03 - 0.48 x10(9)/L 09/23/2024 7:30 AM CDT DTL Basophils <0.03 0.01 - 0.08 x10(9)/L 09/23/2024 7:30 AM CDT DTL Blood (Blood, Venous) 09/23/2024 6:29 AM CDT 09/23/2024 7:20 AM CDT us Juan Mayo M.D. LAB BLOOD ADD-ON Final Resu lt [facility] [address] [place] [address], [facility] DTL [facility] [address] [place] [address] DHPM [facility] [address] [place] [address] * ECG 12 Lead (09/22/2024 8:57 PM CDT) Ventricular Rate ECG/Min 108 BPM MUSE MD Interval 156 ms MUSE QRSD Interval 74 ms MUSE QT Interval 340 ms MUSE QTC Interval 455 ms MUSE P [place] 21 degrees MUSE R [place] 96 degrees MUSE T Wave [place] 68 degrees MUSE 09/22/2024 8:57 PM CDT 09/22/2024 8:58 PM CDT Impressions MUSE - 09/22/2024 8:58 PM CDT Sinus tachycardia Rightward axis Low voltage QRS in limb leads When compared with ECG of 11-Sep-2024 23:43, No significant change was found Reviewed by STERLING Vaca Narrative Procedure Note Jony Fox Jr., M.D. - 09/22/2024 IMPRESSION: Sinus tachycardia Rightward axis Low voltage QRS in limb leads When compared with ECG of 11-Sep-2024 23:43, No significant change was found Reviewed by STERLING Vaca us Sofi Tucker APRN, C.N.P., D.N.P. ECG ORDE RABLES Final Result MUSE NA * Prothrombin Time (PT) (09/22/2024 8:43 PM CDT) Prothrombin Time, P 10.7 9.4 - 12.5 sec 09/22/2024 8:54 PM CDT METH INR 1.0 0.9 - 1.1 09/22/2024 8:54 PM CDT METH Comment: ----ADDITIONAL INFORMATION---- Standard intensity warfarin therapeutic range: 2.0 to 3.0 High intensity warfarin therapeutic range: 2.5 to 3.5 Blood (Blood, Venous) 09/22/2024 8:43 PM CDT 09/22/2024 8:48 PM CDT us Sofi Tucker APRN, C.N.P., D.N.P. LAB BLOO D ADD-ON Final Result [facility] [address] [place] [address], [facility] METH [facility] [address] [place] [address] * (ABNORMAL) Bilirubin, Direct (09/22/2024 8:43 PM CDT) Bilirubin, Direct, P 2.0(H) 0.0 - 0.3 mg/dL 09/22/2024 9:39 PM CDT DTL Blood (Blood, Venous) 09/22/2024 8:43 PM CDT 09/22/2024 9:23 PM CDT Sofi Tucker APRN, C.N.P., D.N.P. LAB BLOO D ADD-ON Final Result [facility] [address] [place] [address], [facility] DTL [facility] [address] [place] [address] * CBC without Differential (09/22/2024 8:43 PM CDT) Pathologist [facility] Hemoglobin 13.5 11.6 - 15.0 g/dL 09/22/2024 8:50 PM CDT METH Hematocrit 38.6 35.5 - 44.9 % 09/22/2024 8:50 PM CDT METH Erythrocytes 4.47 3.92 - 5.13 x10(12)/L 09/22/2024 8:50 PM CDT METH MCV 86.4 78.2 - 97.9 fL 09/22/2024 8:50 PM CDT METH RBC Distrib Width 13.9 12.2 - 16.1 % 09/22/2024 8:50 PM CDT METH Platelet Count 162 157 - 371 x10(9)/L 09/22/2024 8:50 PM CDT METH Leukocytes 9.5 3.4 - 9.6 x10(9)/L 09/22/2024 8:50 PM CDT METH Blood (Blood, Venous) 09/22/2024 8:43 PM CDT 09/22/2024 8:48 PM CDT Sofi Tucker APRN, C.N.P., D.N.P. LAB BLOO D ADD-ON Final Result [facility] [address] [place] [address], [facility] METH [facility] [address] * (ABNORMAL) Comprehensive Metabolic Panel (09/22/2024 8:43 PM CDT) [facility] Potassium, S 3.8 3.6 - 5.2 mmol/L 09/22/2024 9:38 PM CDT DTL Sodium, S 133(L) 135 - 145 mmol/L 09/22/2024 9:38 PM CDT DTL Chloride, S 98 98 - 107 mmol/L 09/22/2024 9:38 PM CDT DTL Bicarbonate, S 24 22 - 29 mmol/L 09/22/2024 9:38 PM CDT DTL Anion Gap 11 7 - 15 09/22/2024 9:38 PM CDT DTL BUN (Blood Urea Nitrogen), S 4(L) 6 - 21 mg/dL 09/22/2024 9:38 PM CDT DTL Creatinine 0.45(L) 0.59 - 1.04 mg/dL 09/22/2024 9:38 PM CDT DTL Estimated GFR (eGFR) >90 >=60 mL/min/BS A 09/22/2024 9:38 PM CDT DTL Comment: Estimated GFR calculated using the 2020 CKD_EPI creatinine equation. Calcium, Total, S 8.7 8.6 - 10.0 mg/dL 09/22/2024 9:38 PM CDT DTL Glucose, S 193(H) 70 - 140 mg/dL 09/22/2024 9:38 PM CDT DTL Protein, Total, S 5.8(L) 6.3 - 7.9 g/dL 09/22/2024 9:38 PM CDT DTL Albumin, S 3.6 3.5 - 5.0 g/dL 09/22/2024 9:38 PM CDT DTL Aspartate Aminotransferase (AST), S 140(H) 8 - 43 U/L 09/22/2024 9:38 PM CDT DTL Alkaline Phosphatase, S 440(H) 35 - 104 U/L 09/22/2024 9:38 PM CDT DTL Alanine Aminotransferase (ALT), S 288(H) 7 - 45 U/L 09/22/2024 9:38 PM CDT DTL Bilirubin, Total, S 3.4(H) 0.0 - 1.2 mg/dL 09/22/2024 9:38 PM CDT DTL Blood (Blood, Venous) 09/22/2024 8:43 PM CDT 09/22/2024 9:23 PM CDT Sofi Tucker APRN, C.N.P., D.N.P. 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 Not to exceed 2 grams in a 24 hour period. Given 09/26/2024 12:30 PM CDT 500 mg Given 09/25/2024 9:33 PM CDT 500 mg Given 09/25/2024 3:46 PM CDT 500 mg belatacept 250 mg in NaCl 0.9% IVPB (Nulojix) 250 mg (rounded from 270 mg = 5 mg/kg 54 kg Dosing weight), intravenous, at 200 mL/hr, Administer over 30 Minutes, Once, On Wed09/25/24 at 1000, For 1 dose, DO NOT SHAKE. Use 0.2 or 0.22 micron filter. New Bag 09/25/2024 10:08 AM CDT 250 mg 200 mL/hr belatacept 250 mg in NaCl 0.9% IVPB (Nulojix) 250 mg (rounded from 270 mg = 5 mg/kg 54 kg Dosing weight), intravenous, at 200 mL/hr, Administer over 30 Minutes, Once, On Wed10/09/24 at 1000, For 1 dose, DO NOT SHAKE. Use 0.2 or 0.22 micron filter. cholecalciferol tablet 10 mcg (Vitamin D3) 10 mcg, oral, Daily, First dose on Wed09/23/24 at 0900, cholecalciferol (vitamin D3) orderable was interchanged for cholecalciferol (vitamin D3) tablet/capsule Given 09/25/2024 8:50 AM CDT 10 mcg Given 09/24/2024 12:23 PM CDT 10 mcg Given 09/23/2024 10:27 AM CDT 10 mcg D5W and NaCl 0.9% infusion 100 mL/hr, intravenous, Continuous, Starting on Wed09/26/24 at 1130 New Bag 09/26/2024 11:20 AM CDT 100 mL/hr 100 mL/hr dextrose 40% gel 15 g of dextrose (Glutose) 15 g of dextrose, oral, As needed, low blood sugar, For glucose 54-70 mg/dL, Starting on Wed09/26/24 at 0736, If patient is conscious and able to swallow safely and has a fuctioning gastrointestinal tract or on Acarbose (Precose ) or Miglitol (Glyset ). May use tablets or gel. For hypoglycemia treatment. 1 g dextrose 40% gel = 0.4 g of dextrose (Example: 37.5 g dextrose 40% gel = 15 g of dextrose). dextrose 40% gel 30 g of dextrose (Glutose) 30 g of dextrose, oral, As needed, low blood sugar, For glucose less than 54 mg/dL, Starting on Wed09/26/24 at 0736, If no intravenous access is available and the patient is conscious and able to swallow safely and has a fuctioning gastrointestinal tract or on Acarbose (Precose ) or Miglitol (Glyset ). May use tablets or gel. For hypoglycemia treatment. 1 g dextrose 40% gel = 0.4 g of dextrose (Example: 37.5 g dextrose 40% gel = 15 g of dextrose). dextrose 50 % injection - ADS Override Pull Starting on Wed09/26/24 at 0740, For 1 dose, Created by cabinet override dextrose 50 % injection 12.5 g 12.5 g, intravenous, As needed, low blood sugar, For glucose 71-90 mg/dL, Starting on Wed09/26/24 at 0736, If the patient has intravenous access available, is not able to take oral feeding safely, does not have a functioning gastrointestinal tract or feeding tube, or is NPO, administer D50W intravenously for hypoglycemia prevention. Given 09/26/2024 9:17 AM CDT 12.5 g dextrose 50 % injection 12.5 g 12.5 g, intravenous, As needed, low blood sugar, For glucose 54-70 mg/dL, Starting on Wed09/26/24 at 0736, If the patient has intravenous access available, is not able to take oral feeding safely, does not have a functioning gastrointestinal tract or feeding tube, or is NPO, administer D50W intravenously for hypoglycemia treatment. Given 09/26/2024 7:44 AM CDT 12.5 g dextrose 50 % injection 25 g 25 g, intravenous, As needed, low blood sugar, For glucose less than 54 mg/dL, Starting on Wed09/26/24 at 0736, If intravenous access is available, administer D50W intravenously for hypoglycemia treatment. Given 09/26/2024 11:05 AM CDT 25 g Given 09/26/2024 10:19 AM CDT 25 g Given 09/26/2024 9:42 AM CDT 25 g enoxaparin injection 40 mg (Lovenox) 40 mg, subcutaneous, Daily, First dose (after last modification) on [facility] 09/23/24 at 0900 Given 09/25/2024 8:50 AM CDT 40 mg Right Upper Arm (Back) fluticasone propionate 50 mcg/actuation nasal spray 1 spray (Flonase) 1 spray, each nostril, Daily, First dose on [facility] 09/23/24 at 0900, fluticasone intranasal 50 mcg/actuation was interchanged for triamcinolone intranasal Given 09/25/2024 8:53 AM CDT 1 spray Given 09/24/2024 12:22 PM CDT 1 spray Given 09/23/2024 8:35 AM CDT 1 spray glucagon injection 1 mg (GlucaGen) 1 mg, subcutaneous, As needed, low blood sugar, For glucose 71-90 mg/dL, Starting on Wed09/26/24 at 0736, If patient is not able to take oral feeding safely, does not have a functioning gastrointestinal tract or feeding tube, or is NPO. Following treatment with Glucagon, a source of glucose should be started to maintain blood glucose level (e.g., patient should eat oral carbohydrates if allowed or prescriber should be contacted to consider starting fluids containing dextrose) Glucagon may only be given once per hypoglycemia prevention episode. glucagon injection 1 mg (GlucaGen) 1 mg, subcutaneous, Once as needed, low blood sugar, For glucose 54-70 mg/dL, Starting on Wed09/26/24 at 0736, For 1 dose, If patient does not have intravenous access available and is not able to take oral feeding safely, does not have a functioning gastrointestinal tract or feeding tube, or is NPO. Following treatment with Glucagon, a source of glucose should be started to maintain blood glucose level (e.g., patient should eat oral carbohydrates if allowed or prescriber should be contacted to consider starting fluids containing dextrose) Glucagon may only be given once per hypoglycemia treatment episode. glucagon injection 1 mg (GlucaGen) 1 mg, subcutaneous, Once as needed, low blood sugar, For glucose less than 54 mg/dL, Starting on Wed09/26/24 at 0736, For 1 dose, If intravenous access not available and patient is not able to take oral feeding safely, does not have a functioning gastrointestinal tract or feeding tube. Following treatment with glucagon a source of glucose should be started to maintain blood glucose level (e.g. patient should eat oral carbohydrates if allowed or prescriber should be contacted to consider starting fluids containing dextrose).Glucagon may only be given once per hypoglycemic treatment episode. glucose chewable tablet 4 tablet 4 tablet, oral, As needed, low blood sugar, For glucose 54-70 mg/dL, Starting on Wed09/26/24 at 0736, If patient is conscious and able to swallow safely and has a functioning gastrointestinal tract or on Acarbose (Precose ) or Miglitol (Glyset ). Administer 4 tablets to total 16 grams. May use tablets or gel. For hypoglycemia treatment. glucose chewable tablet 8 tablet 8 tablet, oral, As needed, low blood sugar, For glucose less than 54 mg/dL, Starting on Wed09/26/24 at 0736, If no intravenous access is available and the patient is conscious and able to swallow safely and has a functioning gastrointestinal tract or on Acarbose (Precose ) or Miglitol (Glyset ). Administer 8 tablets to total 32 grams. May use tablets or gel. For hypoglycemia treatment. HYDROmorphone tablet 2 mg (Dilaudid) 2 mg, oral, Every 6 hours PRN, severe pain or score 7-10 of 10, Starting on Wed09/22/24 at 2046, Does patient have renal impairment, frailty, or advanced age (avoid morphine) and unable to take oxycodone? No, Did the patient fail other oral opioids during hospitalization? No, Does the patient have documented allergies to oxycodone and/or morphine? No, Is the patient on hydromorphone chronically for pain? Yes, Indications: Acute PainIndications:Acute Pain Given 09/26/2024 12:30 PM CDT 2 mg Given 09/26/2024 6:25 AM CDT 2 mg Given 09/25/2024 9:33 PM CDT 2 mg insulin aspart U-100 (Carbohydrate Count) injection 0-10 Units (NovoLOG FlexPen) 0-10 Units, subcutaneous, 3 times daily with meals, First dose (after last modification) on Wed09/25/24 at 0800, Simple or Complex Ratio: Simple, Carb Ratio - Simple (1 unit per __ grams of carbohydrates): 12 Given 09/26/2024 12:25 AM CDT 7 Units Left Upper Arm (Back ) Given 09/25/2024 12:35 PM CDT 5 Units L eft Upper Arm (Back) Given 09/25/2024 8:51 AM CDT 2 Units Ri ght Upper Arm (Back) insulin aspart U-100 (Carbohydrate Count) injection 0-10 Units (NovoLOG FlexPen) 0-10 Units, subcutaneous, As needed, other, use to cover snacks, Starting on Wed09/25/24 at 0654, Simple or Complex Ratio: Simple, Carb Ratio - Simple (1 unit per __ grams of carbohydrates): 12 Given 09/25/2024 4:05 PM CDT 2 Units Left Upper Arm (Back ) insulin aspart U-100 (Carbohydrate Count) injection 0-20 Units (NovoLOG FlexPen) 0-20 Units, subcutaneous, 3 times daily with meals, First dose (after last modification) on Wed09/23/24 at 0930, Simple or Complex Ratio: Simple, Carb Ratio - Simple (1 unit per __ grams of carbohydrates): 10 Given 09/24/2024 2:00 PM CDT 6 Units Left Upper Arm (Back ) Given 09/23/2024 2:38 PM CDT 6 Units Le ft Upper Arm (Back) insulin aspart U-100 injection 0-7 Units (NovoLOG FlexPen) 0-7 Units, subcutaneous, 3 times daily, First dose on 09/23/24 at 1200, Insulin Scale: Mild Correction Scale, 180 - 219: 2 units, 220 - 259: 3 units, 260 - 299: 4 units, 300 - 339: 5 units, 340 - 379: 6 units, 380 - 399: 7 units, Greater than 399: Call service writing Insulin orders Given 09/25/2024 6:32 PM CDT 7 Units Left Upper Arm (Back ) Given 09/25/2024 12:33 PM CDT 3 Units L eft Upper Arm (Back) Given 09/25/2024 7:52 AM CDT 6 Units Ri ght Upper Arm (Back) insulin aspart U-100 injection 0-7 Units (NovoLOG FlexPen) 0-7 Units, subcutaneous, Daily at bedtime, First dose on 09/23/24 at 2100, Insulin Scale: Modified Bedtime Correction Scale, 220-259: 3 units, 260-299: 4 units, 300-339: 5 units, 340-379: 6 units, 380-399: 7 units, Greater than 399: Call service writing insulin orders Given 09/24/2024 8:53 PM CDT 5 Units Left Upper Arm (Back ) insulin glargine injection 7 Units 7 Units, subcutaneous, Daily at bedtime, First dose (after last modification) on 09/24/24 at 2100 Given 09/24/2024 8:42 PM CDT 7 Units Left Upper Arm (Back ) insulin glargine injection 8 Units 8 Units, subcutaneous, 2 times daily, First dose on 09/23/24 at 0900 Given 09/23/2024 8:37 AM CDT 8 Units Left Upper Arm (Back ) insulin glargine injection 8 Units 8 Units, subcutaneous, 2 times daily, First dose (after last modification) on 09/23/24 at 1715 Given 09/24/2024 8:49 AM CDT 8 Units Left Upper Arm (Back ) Given 09/23/2024 5:53 PM CDT 8 Units Le ft Upper Arm (Back) insulin glargine injection 8 Units 8 Units, subcutaneous, Every morning, First dose (after last modification) on Wed09/25/24 at 0900 Given 09/25/2024 8:53 AM CDT 8 Units Right Upper Arm (Back) insulin glargine injection 8 Units 8 Units, subcutaneous, Daily at bedtime, First dose (after last modification) on Wed09/25/24 at 2100 Given 09/25/2024 8:49 PM CDT 8 Units Left Upper Arm (Back) [id number]-[id number] 12,000-38,000-60,[address] capsule 24,000 Units of lipase (Creon) 24,000 Units of lipase, oral, 3 times daily with meals, First dose on Wed09/23/24 at 0800, Do NOT crush or chew. Capsule may be opened and the contents taken without crushing or chewing. Given 09/25/2024 6:30 PM CDT 24,000 Units of lipase Given 09/25/2024 12:35 PM CDT 24,000 Units of lipase Given 09/25/2024 8:52 AM CDT 24,000 Units of lipase methocarbamoL tablet 750 mg (Robaxin) 750 mg, oral, 2 times daily, First dose on Wed09/23/24 at 0900 Given 09/25/2024 8:43 PM CDT 750 mg Given 09/25/2024 8:50 AM CDT 750 mg Given 09/24/2024 8:42 PM CDT 750 mg mirtazapine tablet 15 mg (Remeron) 15 mg, oral, Daily at bedtime, First dose on Wed09/22/24 at 2100 Given 09/25/2024 8:43 PM CDT 15 mg Given 09/24/2024 8:48 PM CDT 15 mg Given 09/23/2024 8:18 PM CDT 15 mg lgbngrqmojqy-xkzi-ZP-Ca-minerals 400 mcg (folic acid) tablet 1 tablet 1 tablet, oral, Daily, First dose on Wed09/23/24 at 0900 Given 09/25/2024 8:50 AM CDT 1 tablet Given 09/24/2024 12:23 PM CDT 1 tablet Given 09/23/2024 10:27 AM CDT 1 tablet naloxegoL tablet 25 mg (Movantik) 25 mg, oral, Daily, First dose on Wed09/23/24 at 1545 Given 09/25/2024 8:50 AM CDT 25 mg Given 09/24/2024 12:24 PM CDT 25 mg Given 09/23/2024 5:45 PM CDT 25 mg ondansetron (PF) injection 4 mg (Zofran) 4 mg, intravenous, Every 8 hours PRN, nausea, vomiting, Starting on Wed09/22/24 at 3, If nausea/vomiting does not improve in 30 minutes post ondansetron administration then administer promethazine. Notify service if nausea symptoms persists. Given 09/26/2024 7:21 AM CDT 4 mg Given 09/25/2024 7:52 AM CDT 4 mg Given 09/24/2024 11:13 PM CDT 4 mg ondansetron tablet 8 mg (Zofran) 8 mg, oral, Every 8 hours PRN, nausea, vomiting, Starting on Wed09/22/24 at 2046 Given 09/25/2024 5:21 PM CDT 8 mg Given 09/24/2024 11:13 PM CDT [address] tablet 40 mg (Protonix) 40 mg, oral, Daily before morning meal, First dose on Wed09/23/24 at 0700, Swallow whole. Do NOT crush, chew, or split tablet. Given 09/26/2024 6:19 AM CDT 40 mg Given 09/25/2024 6:22 AM CDT 40 mg Given 09/24/2024 7:32 AM CDT 40 mg potassium bicarb-citric acid disintegrating tablet 20 mEq (Effer-K) 20 mEq, oral, Once, On Wed09/26/24 at 1300, For 1 dose, potassium orderable was interchanged for potassium liquid/effervescent/packet Dissolve per bottler recommendations. Do NOT chew or swallow tablet. Given 09/26/2024 1:42 PM CDT 20 mEq potassium chloride IVPB 20 mEq 20 mEq, intravenous, at 25 mL/hr, Administer over 120 Minutes, Every 2 hours, First dose on Wed09/26/24 at 0800, For 3 doses, For K 3.0-3.2 mEq/L - give total of 60 mEq, Monitor the following for replacement: Potassium, Replace Potassium per: Standard Schedule New Bag 09/26/2024 11:33 AM CDT 20 mEq 25 mL/hr New Bag 09/26/2024 8:56 AM CDT 20 mEq 25 mL/hr predniSONE tablet 5 mg (Deltasone) 5 mg, oral, Daily, First dose on Wed09/23/24 at 0900 Given 09/26/2024 8:53 AM CDT 5 mg Given 09/25/2024 8:50 AM CDT 5 mg Given 09/24/2024 8:22 AM CDT 5 mg pregabalin capsule 75 mg (Lyrica) 75 mg, oral, 2 times daily, First dose on Wed09/22/24 at 2100 Given 09/25/2024 8:43 PM CDT 75 mg Given 09/25/2024 8:50 AM CDT 75 mg Given 09/24/2024 8:42 PM CDT 75 mg prochlorperazine tablet 10 mg (Compazine) 10 mg, oral, Every 6 hours PRN, nausea, vomiting, Starting on Wed09/22/24 at 2047 Given 09/24/2024 2:45 AM CDT 10 mg promethazine injection 6.25 mg (Phenergan) 6.25 mg, intravenous, Every 6 hours PRN, nausea, vomiting, Starting on Wed09/22/24 at 2022, Administer ondansetron prior to promethazine. Do not administer promethazine in the setting of sedation or confusion. Given 09/23/2024 10:23 AM CDT 6.25 mg sodium chloride 0.9 % injection 3 mL 3 mL, intravenous, Every 12 hours scheduled, First dose on Wed09/22/24 at 2100, Peripheral Intravenous Catheter and Rapid Infusion Catheter, when no infusion to maintain patency Given 09/26/2024 8:57 AM CDT 3 mL Given 09/25/2024 8:44 PM CDT 3 mL Given 09/25/2024 8:53 AM CDT 3 mL tacrolimus capsule 5 mg (Prograf) 5 mg, oral, 2 times daily - immunosuppression, First dose on Wed09/22/24 at 2044, Indications: prevention of liver transplant rejectionIndications:prevention of liver transplant rejection Given 09/22/2024 8:54 PM CDT 5 mg tacrolimus capsule 5 mg (Prograf) 5 mg, oral, 2 times daily - immunosuppression, First dose (after last modification) on 09/23/24 at 0815, Indications: prevention of liver transplant rejectionIndications:prevention of liver transplant rejection Given 09/26/2024 8:54 AM CDT 5 mg Given 09/25/2024 8:43 PM CDT 5 mg Given 09/25/2024 8:50 AM CDT 5 mg traZODone tablet 50 mg (DesyreL) 50 mg, oral, Bedtime PRN, sleep, Starting on Wed09/22/24 at 2022 Given 09/22/2024 9:22 PM CDT 50 mg valGANciclovir tablet 900 mg (Valcyte) 900 mg, oral, Daily with morning meal, First dose on 09/23/24 at 0800, For 75 days, Swallow whole. Do NOT crush, chew, or split tablet., Drug Monitoring Program: Pharmacist to adjust medication dosing based on indication and drug clearance factors., Indications: Prophylaxis, medicalIndications:Prophylaxis, medical Given 09/26/2024 8:53 AM CDT 900 mg Given 09/25/2024 8:53 AM CDT 900 mg Given 09/24/2024 12:23 PM CDT 900 mg documented in this encounter Active and Recently Administered Medications Times are shown in CDT. Scheduled Medication Order 09/24/2024 09/25/2024 09/26/2024 belatacept 250 mg in NaCl 0.9% IVPB (Nulojix) (COMPLETED) 250 mg (rounded from 270 mg = 5 mg/kg 54 kg Dosing weight), intravenous, at 200 mL/hr, Administer over 30 Minutes, Once, On Wed09/25/24 at 1000, For 1 dose, DO NOT SHAKE. Use 0.2 or 0.22 micron filter. 1008 (New Bag - Provider: Jennifer Baron R.N.) belatacept 250 mg in NaCl 0.9% IVPB (Nulojix) 250 mg (rounded from 270 mg = 5 mg/kg 54 kg Dosing weight), intravenous, at 200 mL/hr, Administer over 30 Minutes, Once, On Wed10/09/24 at 1000, For 1 dose, DO NOT SHAKE. Use 0.2 or 0.22 micron filter. cholecalciferol tablet 10 mcg (Vitamin D3) 10 mcg, oral, Daily, First dose on 09/23/24 at 0900, cholecalciferol (vitamin D3) orderable was interchanged for cholecalciferol (vitamin D3) tablet/capsule 1223 (Given - Provider: Desire Evans R.N.) 0850 (Given - Provider: Jennifer Baron R.N.) 0853 (Not Given - Provider: Kaitlin Marroquin R.N. - Reason: Patient/family refused) diclofenac sodium 1 % gel 2 g (Voltaren) 2 g, topical, 4 times daily, First dose on Wed09/22/24 at 2100, Do not exceed 32 g per day, over all affected joints. Apply to abdomen or other areas of pain. Use dosing card to measure product. 2 g = 2.25 inches, 4 gm = 4.5 inches. Rinse dosing card after use and save for each administration. 0800 (Not Given - Provider: Desire Evans R.N. - Reason: Patient/family refused)1200 (Not Given - Provider: Desire Evans R.N. - Reason: Patient/family refused)1751 (Not Given - Provider: Desire Evans R.N. - Reason: Patient/family refused)2048 (Not Given - Provider: Jacinto Tavares RSumaNSuma - Reason: Patient/family refused) 0851 (Not Given - Provider: Jennifer Baron R.N. - Reason: Patient/family refused)1235 (Not Given - Provider: Jennifer Baron R.N. - Reason: Patient/family refused)1623 (Not Given - Provider: Jennifer Baron R.N. - Reason: Patient/family refused)2044 (Not Given - Provider: Hilda Berumen RSumaNSuma - Reason: Patient/family refused) 0858 (Not Given - Provider: Kaitlin Marroquin R.N. - Reason: Patient/family refused)1126 (Not Given - Provider: Kaitlin Marroquin R.N. - Reason: Patient/family refused) enoxaparin injection 40 mg (Lovenox) 40 mg, subcutaneous, Daily, First dose (after last modification) on 09/23/24 at 0900 1223 (Not Given - Provider: Desire Evans R.N. - Reason: Patient/family refused) 0850 (Given - Provider: Jennifer Baron R.N.) 0854 (Not Given - Provider: Andrew BushN. - Reason: Patient/family refused) fluticasone propionate 50 mcg/actuation nasal spray 1 spray (Flonase) 1 spray, each nostril, Daily, First dose on 09/23/24 at 0900, fluticasone intranasal 50 mcg/actuation was interchanged for triamcinolone intranasal 1222 (Given - Provider: Desire Evans R.N.) 0853 (Given - Provider: Jennifer Baron R.N.) 0857 (Not Given - Provider: Kaitlin Marroquin R.N. - Reason: Patient/family refused) insulin aspart U-100 (Carbohydrate Count) injection 0-10 Units (NovoLOG FlexPen) (CANCELED) 0-10 Units, subcutaneous, 3 times daily with meals, First dose (after last modification) on Wed09/25/24 at 0800, Simple or Complex Ratio: Simple, Carb Ratio - Simple (1 unit per __ grams of carbohydrates): 12 0851 (Given - Provider: Jennifer Baron R.N.)1235 (Given - Provider: Andrew SpearsNSuma) 0025 (Given - Provider: Hilda Berumen RSumaNSuma)0756 (Not Given - Provider: Kaitlin Marroquin R.N. - Reason: Order parameters not met) insulin aspart U-100 (Carbohydrate Count) injection 0-20 Units (NovoLOG FlexPen) (CANCELED) 0-20 Units, subcutaneous, 3 times daily with meals, First dose (after last modification) on 09/23/24 at 0930, Simple or Complex Ratio: Simple, Carb Ratio - Simple (1 unit per __ grams of carbohydrates): 10 0849 (Not Given - Provider: Desire Evans R.N. - Reason: Other - Comment: pt ate breakfast but vomited within minutes of eating. Pt blood sugar 137. Lantus given)1400 (Given - Provider: Desire Evans R.N.)2052 (Not Given - Provider: Jacinto Tavares RGabby - Reason: Other - Comment: pt had bites.) insulin aspart U-100 injection 0-7 Units (NovoLOG FlexPen) (CANCELED) 0-7 Units, subcutaneous, 3 times daily, First dose on 09/23/24 at 1200, Insulin Scale: Mild Correction Scale, 180 - 219: 2 units, 220 - 259: 3 units, 260 - 299: 4 units, 300 - 339: 5 units, 340 - 379: 6 units, 380 - 399: 7 units, Greater than 399: Call service writing Insulin orders 075 (Not Given - Provider: Dulce Maria Posey RSuamN. - Reason: Order parameters not met)1225 (Given - Provider: Desire Evans R.N.)1816 (Not Given - Provider: Desire Evans REric. - Reason: Order parameters not met) 0752 (Given - Provider: Jennifer Baron RSumaN.)1233 (Given - Provider: Jennifer Baron R.N.)1832 (Given - Provider: Jennifer Baron R.N.) 0757 (Not Given - Provider: Kaitlin Marroquin RSumaN. - Reason: Order parameters not met) insulin aspart U-100 injection 0-7 Units (NovoLOG FlexPen) (CANCELED) 0-7 Units, subcutaneous, Daily at bedtime, First dose on 09/23/24 at 2100, Insulin Scale: Modified Bedtime Correction Scale, 220-259: 3 units, 260-299: 4 units, 300-339: 5 units, 340-379: 6 units, 380-399: 7 units, Greater than 399: Call service writing insulin orders 2052 (Given - Provider: Jacinto Tavares RGabby) 2047 (Not Given - Provider: Hilda Berumen RSumaNSuma - Reason: Order parameters not met) insulin glargine injection 7 Units (CANCELED) 7 Units, subcutaneous, Daily at bedtime, First dose (after last modification) on Wed09/24/24 at 2100 2041 (Given - Provider: Jacinto Tavraes RSumaNSuma) insulin glargine injection 8 Units (CANCELED) 8 Units, subcutaneous, 2 times daily, First dose (after last modification) on 09/23/24 at 1715 0849 (Given - Provider: Desire Evans R.N.) insulin glargine injection 8 Units (CANCELED) 8 Units, subcutaneous, Every morning, First dose (after last modification) on Wed09/25/24 at 0900 0853 (Given - Provider: Jennifer Baron R.N.) 0912 (Not Given - Provider: Jennifer Baron R.N. - Reason: See Provider Order) insulin glargine injection 8 Units 8 Units, subcutaneous, Daily at bedtime, First dose (after last modification) on Wed09/25/24 at 2099 2048 (Given - Provider: Andrew GayleNSuma) wupsfa-nzdcaent-zkycpbs 12,000-38,000-60,[address] capsule 24,000 Units of lipase (Creon) 24,000 Units of lipase, oral, 3 times daily with meals, First dose on 09/23/24 at 0800, Do NOT crush or chew. Capsule may be opened and the contents taken without crushing or chewing. 0800 (Not Given - Provider: Desire Evans R.N. - Reason: Other)1221 (Given - Provider: Desire Evans R.N.)1816 (Given - Provider: Desire Evans R.N.) 0852 (Given - Provider: Andrew SpearsNSuma)1235 (Given - Provider: Andrew SpearsNSuma)1830 (Given - Provider: Andrew SpearsN.) 0855 (Not Given - Provider: Kaitlin Marroquin R.N. - Reason: Patient/family refused)1244 (Not Given - Provider: Kaitlin Marroquin RGabby - Reason: Patient/family refused) methocarbamoL tablet 750 mg (Robaxin) 750 mg, oral, 2 times daily, First dose on 09/23/24 at 0900 1223 (Given - Provider: Desire Evans R.N.)2041 (Given - Provider: Jacinto Tavares R.N.) 0850 (Given - Provider: Jennifer Baron R.N.)2042 (Given - Provider: Hilda Berumen R.N.) 1012 (Not Given - Provider: Kaitlin Marroquin R.N. - Reason: Patient/family refused) mirtazapine tablet 15 mg (Remeron) 15 mg, oral, Daily at bedtime, First dose on Wed09/22/24 at 2100 2048 (Given - Provider: Jacinto Tavares R.N.) 2042 (Given - Provider: Hilda Berumen R.N.) rtjsixyvwedd-lwls-UP-Ca-m inerals 400 mcg (folic acid) tablet 1 tablet 1 tablet, oral, Daily, First dose on 09/23/24 at 0900 1223 (Given - Provider: Desire Evans R.N.) 0850 (Given - Provider: Jennifer Baron R.N.) 0853 (Not Given - Provider: Kaitlin Marroquin R.N. - Reason: Patient/family refused) naloxegoL tablet 25 mg (Movantik) 25 mg, oral, Daily, First dose on 09/23/24 at 1545 1224 (Given - Provider: Desire Evans R.N.) 0850 (Given - Provider: Jennifer Baron R.N.) 0855 (Not Given - Provider: Kaitlin Marroquin R.N. - Reason: Patient/family refused) pantoprazole DR tablet 40 mg (Protonix) 40 mg, oral, Daily before morning meal, First dose on 09/23/24 at 0700, Swallow whole. Do NOT crush, chew, or split tablet. 0732 (Given - Provider: Colten Johnson R.N.) 0622 (Given - Provider: Andrew TerrellNSuma) 0619 (Given - Provider: Hilda Berumen RSumaNSuma) pentamidine nebulizer solution 300 mg (Nebupent) 300 mg, inhalation, Every 28 days, First dose on Wed10/05/24 at 0900, Respiratory Therapy to Administer Requires Respirgard II nebulizer If dispensed as powder vial, reconstitute each 300 mg vial with 6 mL SWFI to a final concentration of 50 mg/mL, using an 18 gauge needle. For INHALATION only. Protect from light potassium bicarb-citric acid disintegrating tablet 20 mEq (Effer-K) (COMPLETED) 20 mEq, oral, Once, On Wed09/26/24 at 1300, For 1 dose, potassium orderable was interchanged for potassium liquid/effervescent/packe t Dissolve per bottler recommendations. Do NOT chew or swallow tablet. 1342 (Given - Provider: Kaitlin Marroquin R.N.) potassium chloride IVPB 20 mEq (CANCELED) 20 mEq, intravenous, at 25 mL/hr, Administer over 120 Minutes, Every 2 hours, First dose on Wed09/26/24 at 0800, For 3 doses, For K 3.0-3.2 mEq/L - give total of 60 mEq, Monitor the following for replacement: Potassium, Replace Potassium per: Standard Schedule 0856 (New Bag - Provider: Kaitlin Marroquin R.N.)1133 (New Bag - Provider: Kaitlin Marroquin R.N.)1307 (Not Given - Provider: Jennifer Baron RGabby - Reason: See Provider Order) predniSONE tablet 5 mg (Deltasone) 5 mg, oral, Daily, First dose on Wed09/23/24 at 0900 0822 (Given - Provider: Andrew MoraesNSuma) 0850 (Given - Provider: Jennifer Baron RSumaN.) 0853 (Given - Provider: Kaitlin Marroquin R.N.) pregabalin capsule 75 mg (Lyrica) 75 mg, oral, 2 times daily, First dose on Wed09/22/24 at 2100 1223 (Given - Provider: Andrew DealNSuma)2042 (Given - Provider: Jacinto Tavares R.N.) 0850 (Given - Provider: Jennifer Baron R.N.)2042 (Given - Provider: Hilda Berumen R.N.) 0854 (Not Given - Provider: Kaitlin Marroquin R.N. - Reason: Patient/family refused) sodium chloride 0.9 % injection 3 mL 3 mL, intravenous, Every 12 hours scheduled, First dose on Wed09/22/24 at 2100, Peripheral Intravenous Catheter and Rapid Infusion Catheter, when no infusion to maintain patency 0900 (Given - Provider: Desire Evans R.N.)2120 (Given - Provider: Jacinto Tavares R.N.) 0853 (Given - Provider: Jennifer Baron R.N.)2043 (Given - Provider: Hilda Berumen R.N.) 0857 (Given - Provider: Kaitlin Marroquin R.N.) tacrolimus capsule 5 mg (Prograf) 5 mg, oral, 2 times daily - immunosuppression, First dose (after last modification) on 09/23/24 at 0815, Indications: prevention of liver transplant rejection 0822 (Given - Provider: Dulce Maria Posey R.N.)2041 (Given - Provider: Jacinto Tavares R.N.) 0850 (Given - Provider: Jennifer Baron R.N.)2042 (Given - Provider: Hilda Berumen R.N.) 0854 (Given - Provider: Kaitlin Marroquin R.N.) valGANciclovir tablet 900 mg (Valcyte) 900 mg, oral, Daily with morning meal, First dose on 09/23/24 at 0800, For 75 days, Swallow whole. Do NOT crush, chew, or split tablet., Drug Monitoring Program: Pharmacist to adjust medication dosing based on indication and drug clearance factors., Indications: Prophylaxis, medical 1223 (Given - Provider: Desire Evans R.N.) 0853 (Given - Provider: Jennifer Baron R.N.) 0853 (Given - Provider: Kaitlin Marroquin R.N.) Continuous Medication Order 09/24/2024 09/25/2024 09/26/2024 D5W and NaCl 0.9% infusion (CANCELED) 100 mL/hr, intravenous, Continuous, Starting on Wed09/26/24 at 1130 1120 (New Bag - Prov ider: Kaitlin Marroquin R.N.)1137 (Stopped - Provider: Jennifer Baron R.N.) PRN Medication Order 09/24/2024 09/25/2024 09/26/2024 acetaminophen tablet 500 mg (TylenoL) 500 mg, oral, Every 6 hours PRN, mild pain or score 1-3 of 10, fever, Starting on Wed09/22/24 at 2022, First line option. Not to exceed 2 grams in a 24 hour period. 0851 (Given - Provider: Desire Evans R.N.)1503 (Given - Provider: Desire Evans R.N.) 0850 (Given - Provider: Jennifer Baron R.N.)1546 (Given - Provider: Jennifer Baron R.N.)2133 (Given - Provider: Gigi West R.N.) 1230 (Given - Provider: Jennifer Baron R.N.) bisacodyL suppository 10 mg (Dulcolax) 10 mg, rectal, Daily PRN, constipation, if no bowel movement within 48 hours of admission, Starting on Wed09/22/24 at 2022, Ordered sequence of administration: sennosides-docusate sodium tablet then polyethylene glycol then bisacodyl calcium carbonate chewable tablet 200 mg of calcium (Tums) 200 mg of calcium, oral, Every 4 hours PRN, heartburn, indigestion, for dyspepsia, Starting on Wed09/22/24 at 2022, Doses listed are in mg of elemental calcium. Take with food. 500 mg calcium carbonate contains 200 mg of elemental calcium. cholestyramine 4 gram packet 1 packet (Prevalite) 1 packet, oral, 2 times daily PRN, itching, Starting on Wed09/22/24 at 2022, Mix one 4 gram packet in 60 mL water then administer ordered dose. Administer other oral medications at least 1 hour before or 4 to 6 hours after cholestyramine, due to the potential to bind to orally administered drugs. dextrose 40% gel 15 g of dextrose (Glutose) 15 g of dextrose, oral, As needed, low blood sugar, For glucose 54-70 mg/dL, Starting on Wed09/26/24 at 0736, If patient is conscious and able to swallow safely and has a fuctioning gastrointestinal tract or on Acarbose (Precose ) or Miglitol (Glyset ). May use tablets or gel. For hypoglycemia treatment. 1 g dextrose 40% gel = 0.4 g of dextrose (Example: 37.5 g dextrose 40% gel = 15 g of dextrose). dextrose 40% gel 30 g of dextrose (Glutose) 30 g of dextrose, oral, As needed, low blood sugar, For glucose less than 54 mg/dL, Starting on Wed09/26/24 at 0736, If no intravenous access is available and the patient is conscious and able to swallow safely and has a fuctioning gastrointestinal tract or on Acarbose (Precose ) or Miglitol (Glyset ). May use tablets or gel. For hypoglycemia treatment. 1 g dextrose 40% gel = 0.4 g of dextrose (Example: 37.5 g dextrose 40% gel = 15 g of dextrose). dextrose 50 % injection 12.5 g 12.5 g, intravenous, As needed, low blood sugar, For glucose 71-90 mg/dL, Starting on Wed09/26/24 at 0736, If the patient has intravenous access available, is not able to take oral feeding safely, does not have a functioning gastrointestinal tract or feeding tube, or is NPO, administer D50W intravenously for hypoglycemia prevention. 0917 (Given - Provider: Jennifer Baron RGabby) dextrose 50 % injection 12.5 g 12.5 g, intravenous, As needed, low blood sugar, For glucose 54-70 mg/dL, Starting on Wed09/26/24 at 0736, If the patient has intravenous access available, is not able to take oral feeding safely, does not have a functioning gastrointestinal tract or feeding tube, or is NPO, administer D50W intravenously for hypoglycemia treatment. 0744 (Given - Provider: Jennifer Baron R.N.) dextrose 50 % injection 25 g 25 g, intravenous, As needed, low blood sugar, For glucose less than 54 mg/dL, Starting on Wed09/26/24 at 0736, If intravenous access is available, administer D50W intravenously for hypoglycemia treatment. 0942 (Given - Provider: Nina Guzman R.N.)1019 (Given - Provider: Nina Guzman R.N.)1105 (Given - Provider: Jennifer Baron R.N.) glucagon injection 1 mg (GlucaGen) 1 mg, subcutaneous, As needed, low blood sugar, For glucose 71-90 mg/dL, Starting on Wed09/26/24 at 0736, If patient is not able to take oral feeding safely, does not have a functioning gastrointestinal tract or feeding tube, or is NPO. Following treatment with Glucagon, a source of glucose should be started to maintain blood glucose level (e.g., patient should eat oral carbohydrates if allowed or prescriber should be contacted to consider starting fluids containing dextrose) Glucagon may only be given once per hypoglycemia prevention episode. glucagon injection 1 mg (GlucaGen) 1 mg, subcutaneous, Once as needed, low blood sugar, For glucose 54-70 mg/dL, Starting on Wed09/26/24 at 0736, For 1 dose, If patient does not have intravenous access available and is not able to take oral feeding safely, does not have a functioning gastrointestinal tract or feeding tube, or is NPO. Following treatment with Glucagon, a source of glucose should be started to maintain blood glucose level (e.g., patient should eat oral carbohydrates if allowed or prescriber should be contacted to consider starting fluids containing dextrose) Glucagon may only be given once per hypoglycemia treatment episode. glucagon injection 1 mg (GlucaGen) 1 mg, subcutaneous, Once as needed, low blood sugar, For glucose less than 54 mg/dL, Starting on Wed09/26/24 at 0736, For 1 dose, If intravenous access not available and patient is not able to take oral feeding safely, does not have a functioning gastrointestinal tract or feeding tube. Following treatment with glucagon a source of glucose should be started to maintain blood glucose level (e.g. patient should eat oral carbohydrates if allowed or prescriber should be contacted to consider starting fluids containing dextrose).Glucagon may only be given once per hypoglycemic treatment episode. glucose chewable tablet 4 tablet 4 tablet, oral, As needed, low blood sugar, For glucose 54-70 mg/dL, Starting on Wed09/26/24 at 0736, If patient is conscious and able to swallow safely and has a functioning gastrointestinal tract or on Acarbose (Precose ) or Miglitol (Glyset ). Administer 4 tablets to total 16 grams. May use tablets or gel. For hypoglycemia treatment. glucose chewable tablet 8 tablet 8 tablet, oral, As needed, low blood sugar, For glucose less than 54 mg/dL, Starting on Wed09/26/24 at 0736, If no intravenous access is available and the patient is conscious and able to swallow safely and has a functioning gastrointestinal tract or on Acarbose (Precose ) or Miglitol (Glyset ). Administer 8 tablets to total 32 grams. May use tablets or gel. For hypoglycemia treatment. HYDROmorphone tablet 2 mg (Dilaudid) 2 mg, oral, Every 6 hours PRN, severe pain or score 7-10 of 10, Starting on Wed09/22/24 at 2046, Does patient have renal impairment, frailty, or advanced age (avoid morphine) and unable to take oxycodone? No, Did the patient fail other oral opioids during hospitalization? No, Does the patient have documented allergies to oxycodone and/or morphine? No, Is the patient on hydromorphone chronically for pain? Yes, Indications: Acute Pain 0245 (Given - Provider: Isabel Kuhn R.N.)0851 (Given - Provider: Desire Evans R.N.)1503 (Given - Provider: Desire Evans R.N.)2114 (Given - Provider: Jacinto Tavares R.N.) 0322 (Given - Provider: Colten Johnson R.N.)0932 (Given - Provider: Ruma Marroquin R.N.)1546 (Given - Provider: Jennifer Baron R.N.)2133 (Given - Provider: Gigi West R.N.) 0625 (Given - Provider: Hilda Berumen R.N.)1230 (Given - Provider: Jennifer Baron R.N.) insulin aspart U-100 (Carbohydrate Count) injection 0-10 Units (NovoLOG FlexPen) (CANCELED) 0-10 Units, subcutaneous, As needed, other, use to cover snacks, Starting on Wed09/25/24 at 0654, Simple or Complex Ratio: Simple, Carb Ratio - Simple (1 unit per __ grams of carbohydrates): 12 1605 (Given - Provider: Jennifer Baron R.N.) meclizine tablet 25 mg (Antivert) 25 mg, oral, 3 times daily PRN, dizziness, Starting on Wed09/22/24 at 2022 naloxone nasal spray 4 mg (Narcan) 4 mg, nasal, As needed, reversal, Starting on Wed09/22/24 at 2046 ondansetron (PF) injection 4 mg (Zofran) 4 mg, intravenous, Every 8 hours PRN, nausea, vomiting, Starting on Wed09/22/24 at 2022, If nausea/vomiting does not improve in 30 minutes post ondansetron administration then administer promethazine. Notify service if nausea symptoms persists. 0757 (Given - Provider: Dulce Maria Posey R.N.)2313 (Given - Provider: Jacinto Tavares R.N.) 0752 (Given - Provider: Andrew SpearsNSuma) 0721 (Given - Provider: Andrew BushNSuma) ondansetron tablet 8 mg (Zofran) 8 mg, oral, Every 8 hours PRN, nausea, vomiting, Starting on Wed09/22/24 at 2046 2313 (Given - Provider: Jacinto Tavares R.N.) 1721 (Given - Provider: Andrew SpearsNSuma) polyethylene glycol powder packet 17 g (Miralax) 17 g, oral, Daily PRN, constipation, Starting on Wed09/22/24 at 2022, Ordered sequence of administration: sennosides-docusate sodium tablet then polyethylene glycol then bisacodyl Avoid mixing with starch-based thickened liquids. prochlorperazine tablet 10 mg (Compazine) 10 mg, oral, Every 6 hours PRN, nausea, vomiting, Starting on Wed09/22/24 at 2048 0245 (Given - Provider: Isabel Kuhn R.N.) promethazine injection 6.25 mg (Phenergan) 6.25 mg, intravenous, Every 6 hours PRN, nausea, vomiting, Starting on Wed09/22/24 at 2022, Administer ondansetron prior to promethazine. Do not administer promethazine in the setting of sedation or confusion. sennosides-docusate sodium 8.6-50 mg per tablet 1 tablet (Senokot-S) 1 tablet, oral, 2 times daily PRN, constipation, Starting on Wed09/22/24 at 2022, Ordered sequence of administration: sennosides-docusate sodium tablet then polyethylene glycol then bisacodyl simethicone chewable tablet 80 mg 80 mg, oral, Every 4 hours PRN, flatulence, Starting on Wed09/22/24 at 2022 sodium chloride 0.9 % injection 10 mL 10 mL, intravenous, As needed, line care, Starting on Wed09/22/24 at 2022, Peripheral Intravenous Catheter and Rapid Infusion Catheter, prior to blood sampling, post blood transfusion or post blood sampling sodium chloride 0.9 % injection 3 mL 3 mL, intravenous, As needed, line care, Starting on Wed09/22/24 at 2022, Prior to and following infusion and between multiple consecutive infusions: sodium chloride 0.9 % injection traZODone tablet 50 mg (DesyreL) 50 mg, oral, Bedtime PRN, sleep, Starting on Wed09/22/24 at 2022 documented in this encounter Additional Health Concerns Infection Onset Date Last Indicated Resolved Time Protective Environment 10/10/2022 10/10/2022 Assessment Noted Time PHQ-9 Depression Total Score: 4 08/12/19 25 3:31 PM CDT documented as of this encounter Care Teams Network Administrator Relationship Specialty Start Date End Date Ana Red MPAS, P.A.-C. [address] [place] [address] Santiluzma HERMOSILLOADI WRIGHT [id number] PCP - General Internal Medicine 12/01/21 [facility] 08/25/21 documented as of this encounter
[2024-10-04 05:23] VITALS: BP 125/84; PULSE 67; RESP 16; TEMP 36.4; O2SAT 97; BMI 23.2
--- NOTE | 2024-10-04 05:39 | ED.GENADULT ---
HPI - General Adult General Date Seen: 10/04/24 Chief complaint: Abdominal Pain Stated complaint: Abdominal pain History of Present Illness HPI narrative: Patient is a 34-year-old woman with a history of alcoholic cirrhosis secondary status post liver transplant, chronic abdominal pain, opioid dependent, recent ER visits for abdominal pain several times in August. Most recently seen September 22 at which time she was off her rejection meds, transferred to [facility]. She was discharged from there on September 26. She says that while there she says they ?figured out her rejection medications. No other significant events during that hospital stay according to her. She is here with a flare of her chronic left-sided abdominal pain. She takes oral Dilaudid and says this is the only pain medication that helps her. She is slated according to a recent note by Dr. Schroeder to start a pain program at [facility], she says that she has 1 more week where she has to work and then in mid October she is supposed to start that program. She notes that this will be an inpatient program for her where they will work with her on other pain management strategies and wean her off of her Dilaudid. She arrives via ambulance, medics gave her fentanyl IV but she says this does not work for her and she is requesting additional pain medications. She says that she did not take any of her Dilaudid at home since 8:00 a.m. last night, arrives to the ER at 5:30 a.m., she says this was because she was nauseated and was afraid she would throw it up. No new symptoms such as fevers, diarrhea, urinary symptoms. Related Data Home Medications ?Medication ?Instructions ?Recorded ?Confirmed levonorgestrel (Mirena) 1 device intrauterine ONCE 09/04/24 09/22/24 tacrolimus 1 mg capsule, 2 mg PO BID 09/04/24 09/22/24 immediate-release trazodone 50 mg tablet 50 - 150 mg PO QHS PRN 09/04/24 09/22/24 insulin aspart U-100 100 unit/mL 1 sliding scale dose subcut 09/14/24 (3 mL) subcutaneous pen (Novolog FlexPen U-100 Insulin aspart) insulin glargine 100 unit/mL (3 8 unit subcut 09/14/24 mL) subcutaneous pen (Lantus Solostar U-100 Insulin) pregabalin 75 mg capsule 75 mg PO BID 09/14/24 09/22/24 valganciclovir 450 mg tablet 900 mg PO DAILY 09/14/24 09/22/24 Previous Rx's ?Medication ?Instructions ?Recorded cholecalciferol (vitamin D3) 10 10 mcg PO QDAY #30 caps 01/16/22 mcg (400 unit) capsule ondansetron 8 mg disintegrating 8 mg PO TID PRN nausea and 09/04/24 tablet vomiting #60 tabs hydromorphone 2 mg tablet 2 mg PO TID PRN pain #45 tabs 10/09/24 (Dilaudid) Allergies Allergy/AdvReac Type Severity Reaction Status Date / Time ketorolac Allergy Severe Vomiting Verified 09/22/24 08:50 tramadol Allergy Severe Vomiting Verified 09/22/24 08:50 azithromycin Allergy Unknown Vomiting Verified 09/22/24 08:50 gabapentin Allergy Verified 09/22/24 08:50 Review of Systems Status of ROS: Reports: 10 or more systems reviewed and unremarkable except as noted in History and below [facility] Medical History Hepatic neuropathy ?K76.9 - Liver disease, unspecified (ICD-10) ?G99.0 - Autonomic neuropathy in diseases classified elsewhere (ICD-10) Severe opioid use disorder ?F11.20 - Opioid dependence, uncomplicated (ICD-10) Chronic pancreatitis (01/23/21) ?K86.1 - Other chronic pancreatitis (ICD-10) Tobacco abuse ?Z72.0 - Tobacco use (ICD-10) Osteoporosis ?M81.0 - Age-related osteoporosis without current pathological fracture (ICD-10) Chronic pain syndrome ?G89.4 - Chronic pain syndrome (ICD-10) Hepatic encephalopathy ?K72.90 - Hepatic failure, unspecified without coma (ICD-10) IUD (intrauterine device) in place ?Z97.5 - Presence of (intrauterine) contraceptive device (ICD-10) Chronic liver failure ?K72.10 - Chronic hepatic failure without coma (ICD-10) Type 2 diabetes mellitus, with long-term current use of insulin ?E11.9 - Type 2 diabetes mellitus without complications (ICD-10) ?Z79.4 - predatory animal exterminator (current) use of insulin (ICD-10) COVID ?U07.1 - COVID-19 (ICD-10) Chronic nausea ?R11.0 - Nausea (ICD-10) Vitamin D deficiency ?E55.9 - Vitamin D deficiency, unspecified (ICD-10) Restless legs syndrome ?G25.81 - Restless legs syndrome (ICD-10) Patent foramen ovale ?Q21.1 - Atrial septal defect (ICD-10) Insomnia ?G47.00 - Insomnia, unspecified (ICD-10) History of migraine ?Z86.69 - Personal history of other diseases of the nervous system and sense organs (ICD-10) Generalized anxiety disorder with panic attacks ?F41.1 - Generalized anxiety disorder (ICD-10) ?F41.0 - Panic disorder [episodic paroxysmal anxiety] (ICD-10) Gastroesophageal reflux disease without esophagitis (04/16/19) ?K21.9 - Gastro-esophageal reflux disease without esophagitis (ICD-10) Congenital QT prolongation on electrocardiography (01/30/21) ?I45.81 - Long QT syndrome (ICD-10) Attention deficit hyperactivity disorder (ADHD) ?F90.9 - Attention-deficit hyperactivity disorder, unspecified type (ICD-10) Anemia in chronic kidney disease ?N18.9 - Chronic kidney disease, unspecified (ICD-10) ?D63.1 - Anemia in chronic kidney disease (ICD-10) Allergic rhinitis ?J30.9 - Allergic rhinitis, unspecified (ICD-10) Surgical History History of cholecystectomy (10/10/22) ?Z90.49 - Acquired absence of other specified parts of digestive tract (ICD-10) History of liver transplant (10/10/22) ?Z94.4 - Liver transplant status (ICD-10) History of lithotripsy (12/02/22) ?Z98.890 - Other specified postprocedural states (ICD-10) History of open reduction and internal fixation (ORIF) procedure (2019) ?Z98.890 - Other specified postprocedural states (ICD-10) History of foot surgery ?Z98.890 - Other specified postprocedural states (ICD-10) Family History Father Hyperlipidemia Maternal Grandfather High blood pressure Prostate cancer Other Type 2 diabetes mellitus Social History Narrative: marijuana use single, no kids, Олег Ochoa, smoker, sober x 1 year What is your current living situation?: I presently have a place to live Problems where you live: no known problems In the past 12 months, utilities in danger of being shut off: no In past 12 months, lack of transportation kept you from medical appts, meetings, work, or getting things needed for daily living: no In the past 12 mos, have been you worried that your food would run out before you had money to buy more?: never true In the past 12 mos, the food you bought just didn't last and you didn't have money to buy more?: never true Smoking Status: Former smoker Do you use any of these nicotine containing products: None Second hand tobacco smoke exposure: No How often do you have a drink containing alcohol: never AUDIT-C Alcohol total score: 0 Non-prescribed substance use: marijuana (any form) How often does anyone, including family, friends and others, physically hurt you: never How often does anyone, including family, friends and others, insult or talk down to you: never How often does anyone, including family, friends and others, threaten you with harm: never How often does anyone, including family, friends and others, scream or curse at you: never service: No Exam Narrative: Exam Narrative: Vital signs reviewed In general, alert, chronically ill-appearing young woman. Looks comfortable. Head: Normocephalic, atraumatic. Eyes: Sclera clear. Pupils equal and reactive. No significant icterus. ENT: Mucous membranes moist. Neck: Supple without adenopathy. Heart: Regular rate and rhythm without murmur. Lungs: Clear. No increased work of breathing, crackles or wheezes. Abdomen: Soft, nontender to palpation. Extremities: Well perfused, pulses intact. No significant edema. Neurologic: Alert, conversant. Speech fluent, face symmetric. Moves all extremities equally. Skin: Warm, dry well perfused. Affect: Flat. Const: Vital Signs, click to edit/add: Vital Signs - 24 hr 10/04/24 05:23 10/04/24 07:36 Temperature 97.5 F L Pulse Rate [Pulse Oximeter] 67 71 Respiratory Rate 16 20 [facility] 125/84 115/83 Pulse Oximetry 97 99 Oxygen Delivery Me thod Room Air Room Air Course Course ED Course: Expressed with her my concerns about using IV or additional narcotic pain medications for flares of chronic pain. Discussed that we can certainly do some work appearing make sure that there is not a new problem going on, but in the meantime I recommended against using anything other than what she typically uses at home for pain. Will give her some Zofran, 2 mg of oral Zofran ordered. Patient had Zofran per her PICC line, had 2 mg of Zofran but then said that she vomited that up. She again requested IV Dilaudid, again, I am concerned that use of IV Dilaudid for her chronic pain is not a good idea for her. Therefore, give her Reglan and will try the oral Dilaudid dose again. Her labs today are overall reassuring, improved compared to the last time she was here. She does have elevations in her AST and ALT, but they are significantly better than on the . Interestingly, her hemoglobin last time she was here was 13, it is 10.9 today which is the same as all of her previous values, I am not sure why her hemoglobin last time was significantly higher than her baseline, but today's CBC does look comparable to her prior CBCs. Her blood sugar was elevated at 380, we gave her 8 units of subcu insulin and a recheck of her glucose is at 290. There is no evidence of ketoacidosis here with a CO2 of 28. She is maintained on insulin at home and can continue current management. With regard to her chronic pain, if she continues to have difficulties with management would recommend that she discuss with [facility], according to her she is scheduled to go to this pain management program in about a week and half. Return to the ER at any time if she is acutely worse or has new symptoms, otherwise continue current medications and follow-up at [facility]. Vital Signs Vital signs: Initial Vital Signs Temperature 97.5 F L 10/04/24 05:23 Temperature Source Temporal Artery Scan 10/04/24 05:23 Pulse Rate 67 10/04/24 05:23 Respiratory Rate 16 10/04/24 05:23 Blood Pressure 125/84 10/04/24 05:23 Blood Pressure Mean 97 10/04/24 05:23 Blood Pressure Position Supine 10/04/24 05:23 Pulse Oximetry 97 10/04/24 05:23 Oxygen Delivery Method Room Air 10/04/24 05:23 Vital Signs Temperature 97.5 F L 10/04/24 05:23 Pulse Rate 67 10/04/24 05:23 Respiratory Rate 16 10/04/24 05:23 Blood Pressure 125/84 10/04/24 05:23 Pulse Oximetry 97 10/04/24 05:23 Oxygen Delivery Method Room Air 10/04/24 05:23 Temperature 97.5 F L 10/04/24 05:23 Pulse Rate 71 10/04/24 07:36 Respiratory Rate 20 10/04/24 07:36 Blood Pressure 115/83 10/04/24 07:36 Pulse Oximetry 99 10/04/24 07:36 Oxygen Delivery Method Room Air 10/04/24 07:36 Medications Administered Medications: Discontinued Medications Generic Name Dose Route Start Last Admin Trade Name Elíasq PRN Reason Stop Dose Admin Hydromorphone HCl 2 mg 10/04/24 05:37 10/04/24 06:01 Hydromorphone 2 Mg Tablet PO 10/04/24 05:38 2 mg ONCE ONE Administration Hydromorphone HCl 2 mg 10/04/24 07:21 10/04/24 07:31 Hydromorphone 2 Mg Tablet PO 10/04/24 07:22 2 mg ONCE ONE Administration Metoclopramide HCl 10 mg/ 102 mls @ 306 mls/hr 10/04/24 06:29 10/04/24 07:10 Sodium Chloride IVPB 10/04/24 06:30 Infused ONCE ONE Infusion Insulin Human Regular 8 unit 10/04/24 06:43 10/04/24 07:06 Insulin Regular, Human 100 Unit/Ml Vial SUBCUT 10/04/24 06:44 8 unit ONCE ONE Administration Ondansetron HCl 4 mg 10/04/24 05:37 10/04/24 06:02 Ondansetron 2 Mg/Ml Inj IVP 10/04/24 05:38 4 mg ONCE ONE Administration Medical Decision Making Lab Data Labs: Lab Results 10/04/24 10/04/24 Range/Units 06:10 07:30 WBC 3.13 L (4.50-11.00) K/uL RBC 3.62 L (4.00-5.20) m/uL Hgb 10.9 L (12.0-16.0) gm/dL Hct 31.9 L (33.0-51.0) % MCV 88 (80-100) fL MCH 30 (26-34) pg MCHC 34 (32-36) gm/dL RDW Coeff of Yamileth 14.5 (11.5-15.5) % Plt Count 178 (140-440) K/uL Neut % (Auto) 61.1 (42.0-72.0) % Lymph % (Auto) 28.1 (20-44) % Lares % (Auto) 8.9 (0.0-11.0) % Eos % (Auto) 1.0 (0.0-7.0) % Baso % (Auto) 0.3 (0.0-3.0) % Neut # (Auto) 1.90 (1.7-7.0) K/uL Lymph # (Auto) 0.90 (0.90-2.90) K/uL Lares # (Auto) 0.30 (0.00-0.90) K/UL Eos # (Auto) 0.00 (0.00-0.50) K/uL Baso # (Auto) 0.00 (0.00-0.30) K/uL Abs Immat Gran (auto) 0.00 (0.00-0.30) K/uL Imm/Tot Granulo (auto) 0.6 % Sodium 136 (135-149) mmol/L Potassium 3.8 (3.6-5.1) mmol/L Chloride 103 (96-114) mmol/L Carbon Dioxide 28 (20-32) mmol/L Anion Gap 5 L (7-15) mEq/L BUN 7 (5-24) mg/dL Creatinine 0.5 (0.5-1.5) mg/dL Estimated Creat Clear 130.55 Estimated GFR 126 ml/min Glucose 380 H* (60-115) mg/dL Calcium 8.7 (8.4-10.6) mg/dL Total Bilirubin 0.9 (0.1-1.5) mg/dL Direct Bilirubin 0.3 (0.0-0.5) mg/dL AST 112 H (12-35) U/L ALT 116 H (4-35) U/L Alkaline Phosphatase 364 H (40-150) U/L Total Protein 5.7 L (6.0-8.3) g/dL Albumin 3.2 L (3.3-5.0) g/dL Lipase 13 L (23-300) U/L POC Glucose 289 H (60-115) mg/dl Discharge Plan Discharge Clinical Impression: Chronic abdominal pain Patient Disposition: Home, Self-Care Condition: Stable Instructions: Chronic Abdominal Pain (DC) Additional Instructions: Your labs today are improved compared to your previous visit with us. Continue your current medications, if you continue to have difficulties with uncontrolled pain, please talk with your doctors at [facility]. Return any time for acute worsening or new symptoms. Prescriptions: No Action Mirena 21 mcg/24hr (up to 8 yrs) 52 mg intrauterine device 1 device intrauterine ONCE Rx Instructions: as a single dose trazodone 50 mg tablet 50 - 150 mg PO QHS PRN ondansetron 8 mg tablet,disintegrating 8 mg PO TID PRN (Reason: nausea and vomiting) Qty: 60 2RF tacrolimus 1 mg capsule 2 mg PO BID valganciclovir 450 mg tablet 900 mg PO DAILY insulin aspart U-100 [Novolog FlexPen U-100 Insulin] 100 unit/mL (3 mL) insulin pen 1 sliding scale dose subcut pregabalin 75 mg capsule 75 mg PO BID insulin glargine [Lantus Solostar U-100 Insulin] 100 unit/mL (3 mL) insulin pen 8 unit subcut cholecalciferol (vitamin D3) 10 mcg (400 unit) capsule 10 mcg PO QDAY Qty: 30 0RF hydromorphone [Dilaudid] 2 mg tablet 2 mg PO TID MDD 3 PRN (Reason: pain) Qty: 45 0RF Follow Up/Referrals: Ervin Schroeder MD [Primary Care Provider, Family Practice] Stand Alone Forms: [facility] Info Instructions
--- OUTSIDE RECORDS SUMMARY | 2024-10-04 05:50 | XMS_ITS | Encounter Summary ---
Author Organization [facility] Address [address] [place] [address] Care Team Providers Care Corporate Bond Trader Name Role Phone Ana Red P.A.-C. Primary Care Pro vider Reason for Visit * Reason Onset Date Comments Post Hospital Follow-up 09/27/2024 TCM- 1st call attempt Encounter Details Date Type Department Care Team (Latest Contact Info) Description 09/27/2024 Clinical Communication Department of Community Internal Medicine in [place], [place] [address] [facility] [place] [phone] Xuan Malcolm R.N. [address] [phone] Post Hospital Follow-up (TCM- 1st call attempt) Social History Tobacco Use Types Packs/Day Years Used Date Smoking Tobacco: Former Cigarettes 1 - 10/12/2021 Passive Smoke Exposure: Never Smokeless Tobacco: Never Comments:Smoked cigarettes f rom age 18-30 about Alcohol Use Standard Drinks/Week Comments Never 0 (1 standard drink = 0.6 oz pure alcohol) Havent had any alcohol in about a year or so. [facility] Utilities Answer Date Recorded In [...] [facility]? Patient declined 02/10/2022 Do [...] Answer Date Recorded PHQ-2 Score 0 08/11/2024 [facility] of Occupat ional Health - Occupational Stress [...] your living situation today? [facility] 09/23/2024 Education Answer Date Recorded What is the highest level of school you have completed or the highest degree you have received? Associate degree: occupational, technical, or vocational program 07/16/2021 Comments No Sex and Gender Information Value Date Recorded Sex Assigned at Female 04/12/2021 7:39 PM LEASING ASSOCIATE Legal Sex Female 7:53 PM LEASING ASSOCIATE Gender Identity Female 04/12/2021 7:39 PM LEASING ASSOCIATE Sexual Orientation Straight 04/12/2021 7: 39 PM LEASING ASSOCIATE documented as of this encounter Miscellaneous Notes * Telephone Encounter - Xuan Malcolm R.N. - 09/27/2024 9:21 AM CDT Post Hospital Follow Up Phone Call Nurse called Catia Brunson to complete post hospital follow up phone call. REASON FOR CALL Post-Hospital follow-up phone call attempt # 1 after Catia Brunson discharge on 09/26/24 [facility] with abdominal pain. Follow-Up Appointment Follow-up appointment scheduled? no Date of appointment: documented in this encounter Plan of Treatment Upcoming Encounters Date Type Department Care Team (Latest Contact Info) Description 10/05/2024 9:30 AM CDT Appointment Department of Radiology, [facility] in [address] [phone] Marisabel Carpenter APRN, C.N.P., D.N.P. [address] [place] [phone] 10/05/2024 12:00 PM CDT Appointment Division of Pulmonary Medicine in [address] [phone] Edgar Montgomery M.B.B.S., M.S. [address] [place] [phone] 10/05/2024 2:45 PM CDT Infusion Department of Infusion Therapy in [address] [phone] Noreen Ansari P.A.-Katrin., M.S. [address] [place] [phone] 10/10/2024 7:50 AM CDT Lab Department of Laboratory Medicine and Pathology, [facility] in [address] [phone] Marisabel Carpenter APRN, C.N.P., D.N.P. [address] [place] [phone] 10/10/2024 8:00 AM CDT Lab Department of Laboratory Medicine and Pathology, [facility] in [place], [place] [address] [place] [address] Marisabel Carpenter APRN, C.N.P., D.N.P. [address] [place] [phone] 10/10/2024 8:30 AM CDT Nurse Only [facility] [place], [place] [address] [place] [address] Marisabel Carpenter APRN, C.N.P., D.N.P. [address] [place] [phone] 10/10/2024 9:20 AM CDT [facility] [place] [place] [address] [place] [phone] Marisabel Carpenter APRN, C.N.P., D.N.P. [address] [place] [phone] 10/10/2024 9:45 AM CDT Appointment Department of Laboratory Medicine and Pathology, [facility] in [place], [place] [address] [place] [address] Marisabel Carpenter APRN, C.N.P., D.N.P. [address] [place] [phone] 10/10/2024 1:30 PM CDT Appointment Department of Radiology, [facility] in [place], [place] [address] [place] [address] Marisabel Carpenter APRN, C.N.P., D.N.P. [address] [place] [phone] Discharge Disposition: Home or Self Care 10/10/2024 2:45 PM CDT Appointment Department of Radiology, [facility], in [place], [place] [address] [place] [address] Marisabel Carpenter APRN, C.N.Frances, D.N.P. [address] [place] [phone] 10/11/2024 8:00 AM CDT [facility] [place], [place] [address] [place] [phone] Marisabel Carpenter APRN, C.N.Frances, D.N.P. [address] [place] [phone] 10/11/2024 11:00 AM CDT [facility] in [place], [place] [address] [place] [phone] Sree Devlin M.D. [address] [place] [phone] 10/11/2024 1:00 PM CDT Comprehensive Visit Department of Otorhinolaryngology in [place], [place] [address] [place] [phone] Randal Urbano, Shanita.Silvano.-C., M.S. [address] [place] [phone] 10/11/2024 2:00 PM CDT Office Visit [facility] in [place], [place] [address] [place] [address] Hiro Murillo P.A.-C. [address] [place] [phone] 10/11/2024 4:00 PM CDT Comprehensive Visit Department of Dermatology in [place], [place] [address] [place] [phone] Parul Martinez M.D. [address] [place] [phone] 10/12/2024 8:00 AM CDT Telemedicine [facility] in [place], [place] [address] [place] [phone] Ervin Mckeon D.O. [address] [place] [phone] 11/01/2024 2:15 PM CDT Appointment Division of Pulmonary Medicine in [place], [place] [address] [place] [phone] Edgar Montgomery M.B.BSumaS., M.S. [address] [place] [phone] documented as of this encounter Visit Diagnoses Not on filedocumented in this encounter Additional Health Concerns Infection Onset Date Last Indicated Resolved Time Protective Environment 10/10/2022 10/10/2022 Assessment Noted Time PHQ-9 Depression Total Score: 4 08/12/19 25 3:31 PM CDT documented as of this encounter Care Teams Corporate Bond Trader Relationship Specialty Start Date End Date Ana Red MPAS, P.A.-C. [address] [facility] [place] [phone] PCP - General Internal Medicine 12/01/21 [facility] 08/25/21 documented as of this encounter
--- OUTSIDE RECORDS SUMMARY | 2024-10-04 05:50 | XMS_ITS | Encounter Summary ---
Author Organization [facility] Address [address] [place] [address] Care Team Providers Care Invoice Coder Name Role Phone Ana Red P.A.-C. Primary Care Pro vider Reason for Visit * Reason Comments Post Hospital Follow-up TCM- 2nd call at [facility] Encounter Details Date Type Department Care Team (Late st Contact Info) Description 09/27/2024 Patient Outreach Department of Community Internal Medicine in [place], [place] [address] [place] [address] Xuan Malcolm R.N. [address] [phone] Post Hospital Follow-up (TCM- 2nd call attempt) Social History Tobacco Use Types Packs/Day Years Used Date Smoking Tobacco: Former Cigarettes 1 - 10/12/2021 Passive Smoke Exposure: Never Smokeless Tobacco: Never Comments:Smoked cigarettes f rom age 18-30 about Alcohol Use Standard Drinks/Week Comments Never 0 (1 standard drink = 0.6 oz pure alcohol) Havent had any alcohol in about a year or so. [facility] Utilities Answer Date Recorded In the [...] How often do you attend chur or gnosticist services? Patient declined 02/10/2022 Do [...] Date Recorded PHQ-2 Score 0 08/11/2024 [facility] of Occupat ional [...] have a [facility] place to live 09/23/2024 Education Answer Date Recorded What is the highest level of school you have completed or the highest degree you have received? Associate degree: occupational, technical, or vocational program 07/16/2021 Comments No Sex and Gender Information Value Date Recorded Sex Assigned at Female 04/12/2021 7:39 PM COMPOSITION FLOOR SETTER Legal Sex Female 7:53 PM COMPOSITION FLOOR SETTER Gender Identity Female 04/12/2021 7:39 PM COMPOSITION FLOOR SETTER Sexual Orientation Straight 04/12/2021 7: 39 PM COMPOSITION FLOOR SETTER documented as of this encounter Progress Notes * Xuan Malcolm R.N. - 09/27/2024 1:55 PM CDT Post Hospital Follow Up Phone Call Nurse called Catia Brunson to complete post hospital follow up phone call. REASON FOR CALL Post-Hospital follow-up phone call attempt # 2 after Catia Brunson [facility]. Follow-Up Appointment Follow-up appointment scheduled? Not with primary care. Pt has Transplant team appt 09/29/24 at [facility] 10/10/25 Date of appointment: No TCM appt, left message she could call appointment desk to schedule one if she wanted within 5-7 days of discharge. documented in this encounter Plan of Treatment Upcoming Encounters Date Type Department Care Team (Latest Contact Info) Description 10/05/2024 9:30 AM CDT Appointment Department of Radiology, [address] [phone] Marisabel Carpenter APRN, C.N.P., D.N.P. [address] [place] [phone] 10/05/2024 12:00 PM CDT Appointment Division of Pulmonary Medicine in [address] [phone] Edgar Montgomery M.B.BSumaS., M.S. [address] [place] [phone] 10/05/2024 2:45 PM CDT Infusion Department of Infusion Therapy in [address] [phone] Noreen Ansari P.A.-C., M.S. [address] [place] [phone] 10/10/2024 7:50 AM CDT Lab Department of Laboratory Medicine and Pathology, [facility] in [place], [place] [address] [place] [phone] Marisabel Carpenter APRN, C.N.P., D.N.P. [address] [place] [address] 10/10/2024 8:00 AM CDT Lab Department of Laboratory Medicine and Pathology, [facility] in [place], [place] [address] [place] [address] Marisabel Carpenter APRN, C.N.PSuma, D.N.P. [address] [place] [address] 10/10/2024 8:30 AM CDT Nurse Only [facility] in [place], [place] [address] [place] [address] Marisabel Carpenter APRN, C.N.P., D.N.P. [address] [place] [address] 10/10/2024 9:20 AM CDT Appointment Department of Radiology, [facility] in [place], [place] [address] [place] [address] Marisabel Carpenter APRN, C.N.P., D.N.P. [address] [place] [address] 10/10/2024 9:45 AM CDT [facility] [place], [place] [address] [place] [address] Marisabel Carpenter APRN, C.N.P., D.N.P. [address] [place] [phone] 10/10/2024 1:30 PM CDT Appointment Department of Radiology, [facility] in [place], [place] [address] [place] [address] Marisabel aCrpenter APRN, Katrin.N.PSuma, D.N.P. [address] [place] [phone] Discharge Disposition: Home or Self Care 10/10/2024 2:45 PM CDT Appointment Department of Radiology, [facility], in [place], [place] [address] [place] [address] Marisabel Carpenter APRN, C.N.PSuma, D.N.P. [address] [place] [phone] 10/11/2024 8:00 AM CDT Office Visit [facility] in [place], [place] [address] [place] [address] Marisabel Carpenter APRN, Katrin.N.P., D.N.P. [address] [place] [phone] 10/11/2024 11:00 AM CDT Comprehensive Visit [facility] in [place], [place] [address] [place] [address] Sree Devlin M.D. [address] [place] [phone] 10/11/2024 1:00 PM CDT Comprehensive Visit Department of Otorhinolaryngology in [place], [place] [address] [place] [address] Randal Urbano P.A.-C., M.S. [address] [place] [phone] 10/11/2024 2:00 PM CDT Office Visit [facility] in [place], [place] [address] [place] [phone] Hiro Murillo P.A.-C. [address] [place] [phone] 10/11/2024 4:00 PM CDT Comprehensive Visit Department of Dermatology in [place], [place] [address] [place] [phone] Parul Martinez M.D. [address] [place] [phone] 10/12/2024 8:00 AM CDT Telemedicine [facility] Trans[facility] and Clinical Regeneration in [place], [place] [address] [place] [phone] Ervin Mckeon D.O. [address] [place] [phone] 11/01/2024 2:15 PM CDT Appointment Division of Pulmonary Medicine in [place], [place] [address] [place] [phone] Edgar Montgomery M.B.B.S., M.S. [address] [place] [phone] documented as of this encounter Visit Diagnoses Not on filedocumented in this encounter Additional Health Concerns Infection Onset Date Last Indicated Resolved Time Protective Environment 10/10/2022 10/10/2022 Assessment Noted Time PHQ-9 Depression Total Score: 4 08/12/19 25 3:31 PM CDT documented as of this encounter Care Teams Invoice Coder Relationship Specialty Start Date End Date Ana Red MPAS, PToo. [address] [place] [address] [place] [phone] PCP - General Internal Medicine 12/01/21 [facility] 08/25/21 documented as of this encounter
--- OUTSIDE RECORDS SUMMARY | 2024-10-04 05:50 | XMS_ITS | Encounter Summary ---
Author Organization [facility] Address [address] [place] [address] Care Team Providers Care Ob Nurse Name Role Phone Ana Red, P.A.-C. Primary Care Pro vider Reason for Visit * Reason Comments Med Refill Encounter Details Date Type Department Care Team (Late st Contact Info) Description 10/02/2024 Refill [facility], Tenth Floor [address] [place] [address] Ana Red MPAS, P.A.-C. [address] [place] [address] [place] [phone] Med Refill Social History Tobacco Use Types Packs/Day Years Used Date Smoking Tobacco: Former Cigarettes 1 - 10/12/2021 Passive Smoke Exposure: Never Smokeless Tobacco: Never Comments:Smoked cigarettes f rom age 18-30 about Alcohol Use Standard Drinks/Week Comments Never 0 (1 standard drink = 0.6 oz pure alcohol) Havent had any alcohol in about a year or so. [facility] Utilities Answer Date Recorded In the [...] any clubs o r organizations such as mandaeism groups, unions, fraternal [...] Answer Date Recorded PHQ-2 Score 0 08/11/2024 [facility] of Occupat ional Health - Occupational Stress [...] a [facility] to live 09/23/2024 Education Answer Date Recorded What is the highest level of school you have completed or the highest degree you have received? Associate degree: occupational, technical, or vocational program 07/16/2021 Comments No Sex and Gender Information Value Date Recorded Sex Assigned at Female 04/12/2021 7:[address] IN WAITER/WAITRESS Legal Sex Female 7:[address] IN WAITER/WAITRESS Gender Identity Female 04/12/2021 7:[address] WAITER/WAITRESS Sexual Orientation Straight 04/12/2021 7: [address] WAITER/WAITRESS documented as of this encounter Miscellaneous Notes * Telephone Encounter - Ana Red MPAS, P.A.-C. - 10/02/2024 4:20 PM CDT Patient is following with Endocrinology. It looks like this prescription was recently signed. documented in this encounter Plan of Treatment Upcoming Encounters Date Type Department Care Team (Latest Contact Info) Description 10/05/2024 9:30 AM CDT Appointment Department of Radiology, [facility] in [address] [phone] Marisabel Carpenter APRN, Katrin.N.PSuma, D.N.P. [address] [place] [phone] 10/05/2024 12:00 PM CDT Appointment Division of Pulmonary Medicine in [address] [phone] Edgar Montgomery M.B.B.S., M.S. [address] [place] [phone] 10/05/2024 2:45 PM CDT Infusion Department of Infusion Therapy in [address] [phone] Noreen Ansari P.A.-Katrin., M.S. [address] [place] [phone] 10/10/2024 7:50 AM CDT Lab Department of Laboratory Medicine and Pathology, [facility] in [address] [phone] Marisabel Carpenter APRN, Katrin.N.P., D.N.P. [address] [place] [phone] 10/10/2024 8:00 AM CDT Lab Department of Laboratory Medicine and Pathology, [facility] in [place], [place] [address] [place] [phone] Marisabel Carpenter APRN, C.N.PSuma, D.N.P. [address] [place] [address] 10/10/2024 8:30 AM CDT Nurse Only Ramirez diaz [facility] Clinical [facility] in [place], [place] [address] [place] [address] Marisabel Carpenter APRN, C.N.PSuma, D.N.P. [address] [place] [phone] 10/10/2024 9:20 AM CDT Appointment Department of Radiology, [place], [place] [address] [place] [address] Marisabel Carpenter APRN, Katrin.N.PSuma, D.N.P. [address] [place] [phone] 10/10/2024 9:45 AM CDT Appointment Department of Laboratory Medicine and Pathology, [place], [place] [address] [place] [address] Marisabel Carpenter APRN, Katrin.N.PSuma, D.N.P. [address] [place] [phone] 10/10/2024 1:30 PM CDT Appointment Department of Radiology, [place], [place] [address] [place] [address] Marisabel Carpenter APRN, C.N.P., D.N.P. [address] [place] [phone] Discharge Disposition: Home or Self Care 10/10/2024 2:45 PM CDT Appointment Department of Radiology, [facility] in [place], [place] [address] [place] [address] Marisabel Carpenter APRN, C.NDayne, D.N.P. [address] [place] [phone] 10/11/2024 8:00 AM CDT [facility] in [place], [place] [address] [place] [phone] Marisabel Carpenter APRN, C.N.P., D.N.P. [address] [place] [phone] 10/11/2024 11:00 AM CDT Comprehensive [facility] in [place], [place] [address] [place] [phone] Sree Devlin M.D. [address] [place] [phone] 10/11/2024 1:00 PM CDT Comprehensive Visit Department of Otorhinolaryngology in [place], [place] [address] [place] [phone] Randal Urbano, P.A.-C., M.S. [address] [place] [phone] 10/11/2024 2:00 PM CDT [facility] in [place], [place] [address] [place] [phone] Hiro Murillo P.A.-C. [address] [place] [phone] 10/11/2024 4:00 PM CDT Comprehensive Visit Department of Dermatology in [place], [place] [address] [place] [phone] Parul Martinez M.D. [address] [place] [address] 10/12/2024 8:00 AM CDT Telemedicine [facility] for Transplantation and Clinical Regeneration in [place], [place] [address] [place] [phone] Ervin Mckeon D.O. [address] [place] [phone] 11/01/2024 2:15 PM CDT Appointment Division of Pulmonary Medicine in [place], [place] [address] [place] [phone] Edgar Montgomery M.B.B.S., M.S. [address] [place] [phone] documented as of this encounter Visit Diagnoses Not on filedocumented in this encounter Additional Health Concerns Infection Onset Date Last Indicated Resolved Time Protective Environment 10/10/2022 10/10/2022 Assessment Noted Time PHQ-9 Depression Total Score: 4 08/12/19 25 3:31 PM CDT documented as of this encounter Care Teams Ob Nurse Relationship Specialty Start Date End Date Ana Red MPAS, P.A.-C. [address] [place] [address] [place] [address] PCP - General Internal Medicine 12/01/21 [facility] [facility] 08/25/21 documented as of this encounter
--- OUTSIDE RECORDS SUMMARY | 2024-10-04 05:51 | XMS_ITS | Encounter Summary ---
Author Organization [facility] Address [address] [place] [address] Care Team Providers Care Automotive Drivability Technician Name Role Phone Ana Red P.A.-C. Primary Care Pro vider Reason for Visit * Reason Onset Date Comments Med Management 09/25/2024 Belatacept Encounter Details Date Type Department Care Team (Latest Contact Info) Description 09/25/2024 Clinical Communication [facility] [address] [place] [phone] Ave Kuh[address] I., Pharm.D., R.Ph., [facility] [address] [place] [phone] Med Management (Belatacept) Social History Tobacco Use Types Packs/Day Years [...] Answer Date Recorded PHQ-2 Score 0 08/11/2024 [facility] of Occupat ional Health - Occupational Stress [...] [facility] 09/23/2024 Education Answer Date Recorded What is the highest level of school you have completed or the highest degree you have received? Associate degree: occupational, technical, or vocational program 07/16/2021 Comments No Sex and Gender Information Value Date Recorded Sex Assigned at Female 04/12/2021 7:39 PM BELT PUNCHER Legal Sex Female 7:53 PM BELT PUNCHER Gender Identity Female 04/12/2021 7:39 PM BELT PUNCHER Sexual Orientation Straight 04/12/2021 7: 39 PM BELT PUNCHER documented as of this encounter Plan of Treatment Upcoming Encounters Date Type Department Care Team (Latest Contact Info) Description 10/05/2024 9:30 AM CDT Appointment Department of Radiology, [facility], in [place], [place] [address] [place] [address] Marisabel Carpenter APRN, C.N.PSuma, D.N.P. [address] [place] [phone] 10/05/2024 12:00 PM CDT Appointment Division of Pulmonary Medicine in [place], [place] [address] [place] [address] Edgar Montgomery M.B.B.S., M.S. [address] [place] [phone] 10/05/2024 2:45 PM CDT Infusion Department of Infusion Therapy in [place], [place] [address] [place] [address] Noreen Ansari P.A.-C., M.S. [address] [place] [phone] 10/10/2024 7:50 AM CDT Lab Department of Laboratory Medicine and Pathology, [facility] in [place], [place] [address] [place] [address] Marisabel Carpenter APRN, Katrin.N.PSuma, D.N.P. [address] [place] [phone] 10/10/2024 8:00 AM CDT Lab Department of Laboratory Medicine and Pathology, [facility] in [place], [place] [address] [place] [address] Marisabel Carpenter APRN, Katrin.N.P., D.N.P. [address] [place] [phone] 10/10/2024 8:30 AM CDT Nurse Only [facility] in [place], [place] [address] [place] [address] Marisabel Carpenter APRN, C.N.P., D.N.P. [address] [place] [phone] 10/10/2024 9:20 AM CDT Appointment Department of Radiology, [facility] in [place], [place] [address] [place] [address] Marisabel Carpenter APRN, C.N.P., D.N.P. [address] [place] [phone] 10/10/2024 9:45 AM CDT Appointment Department of Laboratory Medicine and Pathology, [facility] in [place], [place] [address] [place] [phone] Marisabel Carpenter APRN, Katrin.N.PSuma, D.N.P. [address] [place] [phone] 10/10/2024 1:30 PM CDT Appointment Department of Radiology, [facility] in [place], [place] [address] [place] [address] Marisabel Carpenter APRN, Katrin.N.PSuma, D.N.P. [address] [place] [phone] Discharge Disposition: Home or Self Care 10/10/2024 2:45 PM CDT Appointment Department of Radiology, [facility] in [place], [place] [address] [place] [address] Marisabel Carpenter APRN, C.N.P., D.N.P. [address] [place] [phone] 10/11/2024 8:00 AM CDT Office Visit [facility] in [place], [place] [address] [place] [address] Marisabel Carpenter APRN, LowellNSumaP., D.N.P. [address] [place] [phone] 10/11/2024 11:00 AM CDT Comprehensive Visit [facility] in [place], [place] [address] [place] [address] Sree Devlin M.D. [address] [place] [phone] 10/11/2024 1:00 PM CDT Comprehensive Visit Department of Otorhinolaryngology in [place], [place] [address] [place] [address] Randal Urbano, Shanita.Silvano.-C., M.S. [address] [place] [phone] 10/11/2024 2:00 PM CDT Office Visit [facility] for Transplantation and Clinical Regeneration in [place], [place] [address] [place] [address] Hiro Murillo P.A.-C. [address] [place] [phone] 10/11/2024 4:00 PM CDT Comprehensive Visit Department of Dermatology in [place], [place] [address] [place] [phone] Parul Martinez M.D. [address] [place] [phone] 10/12/2024 8:00 AM CDT Telemedicine [facility] for Transplantation and Clinical Regeneration in [place], [place] [address] [place] [address] Ervin Mckeon D.O. [address] [place] [address] 11/01/2024 2:15 PM CDT Appointment Division of Pulmonary Medicine in [place], [place] [address] [place] [address] Edgar Montgomery M.B.B.S., M.S. [address] [place] [phone] documented as of this encounter Visit Diagnoses Not on filedocumented in this encounter Additional Health Concerns Infection Onset Date Last Indicated Resolved Time Protective Environment 10/10/2022 10/10/2022 Assessment Noted Time PHQ-9 Depression Total Score: 4 08/12/19 25 3:31 PM CDT documented as of this encounter Care Teams Automotive Drivability Technician Relationship Specialty Start Date End Date Ana Red MPAS, P.A.-C. [address] [place] [address] [place] [address] PCP - General Internal Medicine 12/01/21 [facility] [place] [facility] 08/25/21 documented as of this encounter
--- OUTSIDE RECORDS SUMMARY | 2024-10-04 05:51 | XMS_ITS | Encounter Summary ---
Author Organization [facility] Address [address] [place] [address] Care Team Providers Care Parking Enforcer Name Role Phone Ana Red P.A.-C. Primary Care Pro vider Encounter Details Date Type Department Care Team (Latest Contact Info) Description 09/22/2024 Intake [facility] Social History Tobacco Use Types Packs/Day Years Used Date Smoking Tobacco: Former Cigarettes 1 - 10/12/2021 Passive Smoke Exposure: Never Smokeless Tobacco: Never Comments:Smoked cigarettes f rom age 18-30 about Alcohol Use Standard Drinks/Week Comments Never 0 (1 standard drink = 0.6 oz pure alcohol) Havent had any alcohol in about a year or so. [facility] Utilities Answer Date Recorded In the past 12 months has e [employer], oil, or water [employer] threatened to shut off services in your [...] any clubs o r organizations such as yazdanism groups, unions, fraternal [...] Answer Date Recorded PHQ-2 Score 0 08/11/2024 [facility] of Occupat ional Health - Occupational Stress [...] your living situation today? I have a [facility] place to live 09/23/2024 Education Answer Date Recorded What is the highest level of school you have completed or the highest degree you have received? Associate degree: occupational, technical, or vocational program 07/16/2021 Comments No Sex and Gender Information Value Date Recorded Sex Assigned at Female 04/12/2021 7:39 PM PRINCIPAL TRAINER Legal Sex Female 7:53 PM PRINCIPAL TRAINER Gender Identity Female 04/12/2021 7:39 PM PRINCIPAL TRAINER Sexual Orientation Straight 04/12/2021 7: 39 PM PRINCIPAL TRAINER documented as of this encounter Plan of Treatment Upcoming Encounters Date Type Department Care Team (Latest Contact Info) Description 10/05/2024 9:30 AM CDT Appointment Department of Radiology, [facility], in [place], [place] [address] [place] [address] Marisabel Carpenter APRN, C.N.P., D.N.P. [address] [place] [phone] 10/05/2024 12:00 PM CDT Appointment Division of Pulmonary Medicine in [place], [place] [address] [place] [phone] Edgar Montgomery M.B.B.S., M.S. [address] [place] [phone] 10/05/2024 2:45 PM CDT Infusion Department of Infusion Therapy in [place], [place] [address] [place] [address] Noreen Ansari P.A.-C., M.S. [address] [place] [phone] 10/10/2024 7:50 AM CDT Lab Department of Laboratory Medicine and Pathology, [place], [place] [address] [place] [address] Marisabel Carpenter APRN, C.N.P., D.N.P. [address] [place] [phone] 10/10/2024 8:00 AM CDT Lab Department of Laboratory Medicine and Pathology, [facility] in [place], [place] [address] [place] [address] Marisabel Carpenter APRN, C.N.P., D.N.P. [address] [place] [phone] 10/10/2024 8:30 AM CDT [facility] in [place], [place] [address] [place] [address] Marisabel Carpenter APRN, C.N.P., D.N.P. [address] [place] [phone] 10/10/2024 9:20 AM CDT Appointment Department of Radiology, [facility] in [place], [place] [address] [place] [address] Marisabel Carpenter APRN, C.N.P., D.N.P. [address] [place] [phone] 10/10/2024 9:45 AM CDT Appointment Department of Laboratory Medicine and Pathology, [facility] in [place], [place] [address] [place] [address] Marisabel Carpenter APRN, C.N.P., D.N.P. [address] [place] [phone] 10/10/2024 1:30 PM CDT Appointment Department of Radiology, [facility] in [place], [place] [address] [place] [address] Marisabel Carpenter APRN, C.N.P., D.N.P. [address] [place] [phone] Discharge Disposition: Home or Self Care 10/10/2024 2:45 PM CDT Appointment Department of Radiology, [facility] in [place], [place] [address] [place] [address] Marisabel Carpenter APRN, C.N.P., D.N.P. [address] [place] [phone] 10/11/2024 8:00 AM CDT Office Visit Ramirez Nguyen [facility] in [place], [place] [address] [place] [address] Marisabel Carpenter APRN, C.N.P., D.N.P. [address] [place] [phone] 10/11/2024 11:00 AM CDT Comprehensive Visit [facility] in [place], [place] [address] [place] [address] Sree Devlin M.D. [address] [place] [phone] 10/11/2024 1:00 PM CDT Comprehensive Visit Department of Otorhinolaryngology in [place], [place] [address] [place] [address] Randal Urbano P.A.-C., M.S. [address] [place] [phone] 10/11/2024 2:00 PM CDT Office Visit [facility] in [place], [place] [address] [place] [address] Hiro Murillo P.A.-C. [address] [place] [phone] 10/11/2024 4:00 PM CDT Comprehensive Visit Department of Dermatology in [place], [place] [address] [place] [address] Parul Martinez M.D. [address] [place] [phone] 10/12/2024 8:00 AM CDT Telemedicine [facility] in [place], [place] [address] [place] [address] Ervin Mckeon D.O. [address] [place] [phone] 11/01/2024 2:15 PM CDT Appointment Division of Pulmonary Medicine in [place], [place] [address] [place] [address] Edgar Montgomery M.B.B.S., M.S. [address] [place] [address] documented as of this encounter Visit Diagnoses Not on filedocumented in this encounter Additional Health Concerns Infection Onset Date Last Indicated Resolved Time Protective Environment 10/10/2022 10/10/2022 Assessment Noted Time PHQ-9 Depression Total Score: 4 08/12/19 25 3:31 PM CDT documented as of this encounter Care Teams Parking Enforcer Relationship Specialty Start Date End Date Ana Red MPAS, P.A.-C. [address] [place] [address] PCP - General Internal Medicine 12/01/21 [facility] [place] [facility] 08/25/21 documented as of this encounter
--- OUTSIDE RECORDS SUMMARY | 2024-10-04 05:51 | XMS_ITS | Encounter Summary ---
Author Organization [facility] Address [address] [place] [address] Care Team Providers Care Fireworks Assembly Supervisor Name Role Phone Ana Red P.A.-C. Primary Care Pro vider Encounter Details Date Type Department Care Team (Latest Contact Info) Description 09/22/2024 Clinical Communication Ramirez Navarrete [facility] Clinical Regeneration in [place], [place] [address] [place] [phone] August, Sony Mendez R.N. [address] [place] [phone] Social History Tobacco Use Types Packs/Day Years [...] How often do you attend [facility] or jehovah's witness services? Patient declined 02/10/2022 Do you belong to any clubs o r organizations such as mormonism groups, unions, fraternal [...] living situation today? I have a [facility] place to live 09/23/2024 Education Answer Date Recorded What is the highest level of school you have completed or the highest degree you have received? Associate degree: occupational, technical, or vocational program 07/16/2021 Comments No Sex and Gender Information Value Date Recorded Sex Assigned at Female 04/12/2021 7:39 PM ACTIVITY COORDINATOR Legal Sex Female 7:53 PM ACTIVITY COORDINATOR Gender Identity Female 04/12/2021 7:39 PM ACTIVITY COORDINATOR Sexual Orientation Straight 04/12/2021 7: 39 PM ACTIVITY COORDINATOR documented as of this encounter Plan of Treatment Upcoming Encounters Date Type Department Care Team (Latest Contact Info) Description 10/05/2024 9:30 AM CDT Appointment Department of Radiology, [facility], in [place], [place] [address] [place] [address] Marisabel Carpenter APRN, C.N.P., D.N.P. 200 [place] [phone] 10/05/2024 12:00 PM CDT Appointment Division of Pulmonary Medicine in [place], [place] [address] [place] [address] Edgar Montgomery M.B.B.S., M.S. [address] [place] [phone] 10/05/2024 2:45 PM CDT Infusion Department of Infusion Therapy in [place], [place] [address] [place] [address] Noreen Ansari P.A.-C., M.S. [address] [place] [phone] 10/10/2024 7:50 AM CDT Lab Department of Laboratory Medicine and Pathology, [facility] in [place], [place] [address] [place] [address] Marisabel Carpenter APRN, C.N.P., D.N.P. [address] [place] [phone] 10/10/2024 8:00 AM CDT Lab Department of Laboratory Medicine and Pathology, [facility] in [place], [place] [address] [place] [address] Marisabel Carpenter APRN, C.N.P., D.N.P. [address] [place] [phone] 10/10/2024 8:30 AM CDT Nurse Only [facility] in [place], [place] [address] [place] [address] Marisabel Carpenter APRN, C.N.P., D.N.P. [address] [place] [phone] 10/10/2024 9:20 AM CDT Appointment Department of Radiology, [facility] in [place], [place] [address] [place] [address] Marisabel Carpenter APRN, C.N.P., D.N.P. [address] [place] [phone] 10/10/2024 9:45 AM CDT [facility] [place], [place] [address] [place] [address] Marisabel Carpenter APRN, C.N.P., D.N.P. [address] [place] [phone] 10/10/2024 1:30 PM CDT Appointment Department of Radiology, [facility] in [place], [place] [address] [place] [address] Marisabel Carpenter APRN, C.N.P., D.N.P. [address] [place] [phone] Discharge Disposition: Home or Self Care 10/10/2024 2:45 PM CDT Appointment Department of Radiology, [facility], in [place], [place] [address] [place] [address] Marisabel Carpenter APRN, C.N.P., D.N.P. [address] [place] [phone] 10/11/2024 8:00 AM CDT Office Visit Ramirez diaz [facility] in [place], [place] [address] [place] [address] PintMarisabel APRN, C.N.P., D.N.P. [address] [place] [phone] 10/11/2024 11:00 AM CDT Comprehensive Visit [facility] in [place], [place] [address] [place] [phone] Sree Devlin M.D. [address] [place] [phone] 10/11/2024 1:00 PM CDT Comprehensive Visit Department of Otorhinolaryngology in [place], [place] [address] [place] [phone] Randal Urbano P.A.-C., M.S. [address] [place] [phone] 10/11/2024 2:00 PM CDT Office Visit [facility] in [place], [place] [address] [place] [phone] Hiro Murillo P.A.-C. [address] [place] [phone] 10/11/2024 4:00 PM CDT Comprehensive Visit Department of Dermatology in [place], [place] [address] [place] [phone] Parul Martinez M.D. [address] [place] [phone] 10/12/2024 8:00 AM CDT Telemedicine [facility] in [place], [place] [address] [place] [phone] Ervin Mckeon D.O. [address] [place] [phone] 11/01/2024 2:15 PM CDT Appointment Division of Pulmonary Medicine in [place], [place] [address] [place] [address] Edgar Montgomery M.B.B.S., M.S. [address] [place] [address] documented as of this encounter Visit Diagnoses Not on filedocumented in this encounter Additional Health Concerns Infection Onset Date Last Indicated Resolved Time Protective Environment 10/10/2022 10/10/2022 Assessment Noted Time PHQ-9 Depression Total Score: 4 08/12/19 25 3:31 PM CDT documented as of this encounter Care Teams Fireworks Assembly Supervisor Relationship Specialty Start Date End Date Ana Red MPAS, P.A.-C. [address] [place] [phone] PCP - General Internal Medicine 12/01/21 [facility] [place] [facility] 08/25/21 documented as of this encounter
--- OUTSIDE RECORDS SUMMARY | 2024-10-04 05:51 | XMS_ITS | Encounter Summary ---
Author Organization [facility] Address [address] [place] [address] Care Team Providers Care Certified Pest Control Technician Name Role Phone Ana Red P.A.-C. Primary Care Pro vider Encounter Details Date Type Department Care Team (Latest Contact Info) Description 09/22/2024 Results Follow-Up Ramirez diaz [facility] for Transplantation and Clinical Regeneration in [place], [place] [address] [place] [phone] Kenny Purdy M.D. [address] [place] [phone] Surgical Pathology Social History Tobacco Use Types Packs/Day Years Used Date Smoking Tobacco: Former Cigarettes 1 - 10/12/2021 Passive Smoke Exposure: Never Smokeless Tobacco: Never Comments:Smoked cigarettes f rom age 18-30 about Alcohol Use Standard Drinks/Week Comments Never 0 (1 standard drink = 0.6 oz pure alcohol) Havent had any alcohol in about a year or so. [facility] Utilities Answer Date Recorded In the past 12 months has th e [employer], gas, oil, or water [employer] threatened to shut off services in your [...] How often do you attend chur or buddhism services? Patient declined 02/10/2022 Do you belong to any clubs o r organizations such as scientologist groups, unions, fraternal [...] Answer Date Recorded PHQ-2 Score 0 08/11/2024 [facility] of Occupat ional Health - Occupational Stress [...] [facility] to live 09/23/2024 Education Answer Date Recorded What is the highest level of school you have completed or the highest degree you have received? Associate degree: occupational, technical, or vocational program 07/16/2021 Comments No Sex and Gender Information Value Date Recorded Sex Assigned at Female 04/12/2021 7:39 PM [employer] WIRING TECHNICIAN Legal Sex Female 7:53 PM X [employer] WIRING TECHNICIAN Gender Identity Female 04/12/2021 7:39 PM X RAY [employer] WIRING TECHNICIAN Sexual Orientation Straight 04/12/2021 7: 39 PM X RAY ELECT[employer] WIRING TECHNICIAN documented as of this encounter Plan of Treatment Upcoming Encounters Date Type Department Care Team (Latest Contact Info) Description 10/05/2024 9:30 AM CDT Appointment Department of Radiology, [facility], in [place], [place] [address] [place] [address] Marisabel Carpenter APRN, C.N.PSuma, D.N.P. [address] [place] [phone] 10/05/2024 12:00 PM CDT Appointment Division of Pulmonary Medicine in [place], [place] [address] [place] [address] Edgar Montgomery M.B.B.S., M.S. [address] [place] [phone] 10/05/2024 2:45 PM CDT Infusion Department of Infusion Therapy in [place], [place] [address] [place] [address] Noreen Ansari P.A.-C., M.S. [address] [place] [phone] 10/10/2024 7:50 AM CDT Lab Department of Laboratory Medicine and Pathology, [facility] in [place], [place] [address] [place] [address] Marisabel Carpenter APRN, C.N.P., D.N.P. [address] [place] [phone] 10/10/2024 8:00 AM CDT Lab Department of Laboratory Medicine and Pathology, [facility] in [place], [place] [address] [place] [address] Marisabel Carpenter APRN, C.N.P., D.N.P. [address] [place] [phone] 10/10/2024 8:30 AM CDT Nurse Only [facility] in [place], [place] [address] [place] [address] Marisabel Carpenter APRN, C.N.P., D.N.P. [address] [place] [phone] 10/10/2024 9:20 AM CDT Appointment Department of Radiology, [facility] in [place], [place] [address] [place] [address] Marisabel Carpenter APRN, C.N.P., D.N.P. [address] [place] [phone] 10/10/2024 9:45 AM CDT Appointment Department of Laboratory Medicine and Pathology, [facility] in [place], [place] [address] [place] [phone] Marisabel Carpenter APRN, Katrin.N.PSuma, D.N.P. [address] [place] [phone] 10/10/2024 1:30 PM CDT Appointment Department of Radiology, [facility] in [place], [place] [address] [place] [address] Marisabel Carpenter APRN, C.N.P., D.N.P. [address] [place] [phone] Discharge Disposition: Home or Self Care 10/10/2024 2:45 PM CDT Appointment Department of Radiology, [facility] in [place], [place] [address] [place] [address] Marisabel Carpenter APRN, C.N.P., D.N.P. [address] [place] [phone] 10/11/2024 8:00 AM CDT [facility] in [place], [place] [address] [place] [phone] Marisabel Carpenter APRN, C.NLala., D.N.P. [address] [place] [phone] 10/11/2024 11:00 AM CDT Comprehensive Visit [facility] for Transplantation and Clinical Regeneration in [place], [place] [address] [place] [address] Sree Devlin M.D. [address] [place] [phone] 10/11/2024 1:00 PM CDT Comprehensive Visit Department of Otorhinolaryngology in [place], [place] [address] [place] [phone] Randal Urbano P.A.-Katrin., M.S. [address] [place] [phone] 10/11/2024 2:00 PM CDT Office Visit [facility] for Transplantation and Clinical Regeneration in [place], [place] [address] [place] [address] Hiro Murillo P.A.-C. [address] [place] [phone] 10/11/2024 4:00 PM CDT Comprehensive Visit Department of Dermatology in [place], [place] [address] [place] [phone] Parul Martinez M.D. [address] [place] [phone] 10/12/2024 8:00 AM CDT Telemedicine [facility] for Transplantation and Clinical Regeneration in [place], [place] [address] [place] [phone] Ervin Mckeon D.O. [address] [place] [address] [place] [address] 11/01/2024 2:15 PM CDT Appointment Division of Pulmonary Medicine in [place], [place] [address] [place] [address] Edgar Montgomery M.B.B.S., M.S. [address] [place] [phone] documented as of this encounter Visit Diagnoses Not on filedocumented in this encounter Additional Health Concerns Infection Onset Date Last Indicated Resolved Time Protective Environment 10/10/2022 10/10/2022 Assessment Noted Time PHQ-9 Depression Total Score: 4 08/12/19 25 3:31 PM CDT documented as of this encounter Care Teams Certified Pest Control Technician Relationship Specialty Start Date End Date Ana Red MPAS, P.A.-C. [address] [place] [phone] PCP - General Internal Medicine 12/01/21 [facility] [place] [facility] 08/25/21 documented as of this encounter
--- OUTSIDE RECORDS SUMMARY | 2024-10-04 05:53 | XMS_ITS | Encounter Summary ---
Author Organization [facility] Address [address] [place] [address] Care Team Providers Care Hoop Driving Machine Operator Helper Name Role Phone Ana Red P.A.-C. Primary Care Pro vider Encounter Details Date Type Department Care Team (Latest Contact Info) Description 09/15/2024 Medication Management Ramirez Navarrete [facility] Clinical Regeneration in [place], [place] [address] [place] [phone] Kenny Purdy M.D. [address] [place] [phone] Rejection Graft Acute (Primary Dx) Social History Tobacco Use Types Packs/Day Years Used Date Smoking Tobacco: Former Cigarettes 1 - 10/12/2021 Passive Smoke Exposure: Never Smokeless Tobacco: Never Comments:Smoked cigarettes f rom age 18-30 about Alcohol Use Standard Drinks/Week Comments Never 0 (1 standard drink = 0.6 oz pure alcohol) Havent had any alcohol in about a year or so. [facility] Utilities Answer Date Recorded In the past [...] How often do you attend chur or sikhism services? Patient declined 02/10/2022 Do you belong [...] Date Recorded PHQ-2 Score 0 08/11/2024 [facility] [place] of Occupat ional Health - Occupational Stress [...] living situation today? I have a [facility] place to live 09/09/2024 Education Answer Date Recorded What is the highest level of school you have completed or the highest degree you have received? Associate degree: occupational, technical, or vocational program 07/16/2021 Comments No Sex and Gender Information Value Date Recorded Sex Assigned at Female 04/12/2021 7:39 PM OPTICAL SALES ASSOCIATE Legal Sex Female 7:53 PM OPTICAL SALES ASSOCIATE Gender Identity Female 04/12/2021 7:39 PM OPTICAL SALES ASSOCIATE Sexual Orientation Straight 04/12/2021 7: 39 PM OPTICAL SALES ASSOCIATE documented as of this encounter Plan of Treatment Upcoming Encounters Date Type Department Care Team (Latest Contact Info) Description 10/05/2024 9:30 AM CDT Appointment Department of Radiology, [facility], in [place], [place] [address] [place] [address] Marisabel Carpenter APRN C.N.P., D.N.P. [address] [place] [phone] 10/05/2024 12:00 PM CDT Appointment Division of Pulmonary Medicine in [place], [place] [address] [place] [address] Edgar Montgomery M.B.B.S., M.S. [address] [place] [phone] 10/05/2024 2:45 PM CDT Infusion Department of Infusion Therapy in [place], [place] [address] [place] [phone] Noreen Ansari P.A.-C., M.S. [address] [place] [phone] 10/10/2024 7:50 AM CDT Lab Department of Laboratory Medicine and Pathology, [facility] in [place], [place] [address] [place] [address] Marisabel Carpenter APRN, C.N.P., D.N.P. [address] [place] [phone] 10/10/2024 8:00 AM CDT Lab Department of Laboratory Medicine and Pathology, [facility] in [place], [place] [address] [place] [address] Marisabel Carpenter APRN C.N.P., D.N.P. [address] [place] [phone] 10/10/2024 8:30 AM CDT [facility] in [place], [place] [address] [place] [address] Marisabel Carpenter APRN, C.N.PSuma, D.N.P. [address] [place] [phone] 10/10/2024 9:20 AM CDT Appointment Department of Radiology, [facility] in [place], [place] [address] [place] [address] Marisabel Carpenter APRN, C.N.P., D.N.P. [address] [place] [phone] 10/10/2024 9:45 AM CDT Appointment Department of Laboratory Medicine and Pathology, [facility] in [place], [place] [address] [place] [phone] Marisabel Carpenter APRN, Katrin.N.PSuma, D.N.P. [address] [place] [phone] 10/10/2024 1:30 PM CDT Appointment Department of Radiology, [facility] in [place], [place] [address] [place] [address] Marisabel Carpenter APRN, C.N.PSuma, D.N.P. [address] [place] [phone] Discharge Disposition: Home or Self Care 10/10/2024 2:45 PM CDT Appointment Department of Radiology, [facility] in [place], [place] [address] [place] [address] Marisabel Carpenter APRN, C.N.P., D.N.P. [address] [place] [phone] 10/11/2024 8:00 AM CDT [facility] in [place], [place] [address] [place] [phone] Marisabel Carpenter APRN, C.NSumaP., D.N.P. [address] [place] [phone] 10/11/2024 11:00 AM CDT Comprehensive Visit [facility] for Transplantation and Clinical Regeneration in [place], [place] [address] [place] [phone] Sree Devlin M.D. [address] [place] [phone] 10/11/2024 1:00 PM CDT Comprehensive Visit Department of Otorhinolaryngology in [place], [place] [address] [place] [phone] Randal Urbano P.A.-Katrin., M.S. [address] [place] [phone] 10/11/2024 2:00 PM CDT Office Visit [facility] Clinical [facility] in [place], [place] [address] [place] [phone] Hiro Murillo P.A.-C. [address] [place] [phone] 10/11/2024 4:00 PM CDT Comprehensive Visit Department of Dermatology in [place], [place] [address] [place] [phone] Parul Martinez M.D. [address] [place] [phone] 10/12/2024 8:00 AM CDT Telemedicine [facility] in [place], [place] [address] [place] [phone] Ervin Mckeon D.O. [address] [place] [address] 11/01/2024 2:15 PM CDT Appointment Division of Pulmonary Medicine in [place], [place] [address] [place] [phone] Edgar Montgomery M.B.B.S., M.S. [address] [place] [phone] documented as of this encounter Visit Diagnoses Diagnosis Rejection Graft Acute- Primary documented in this encounter Additional Health Concerns Infection Onset Date Last Indicated Resolved Time Protective Environment 10/10/2022 10/10/2022 Assessment Noted Time PHQ-9 Depression Total Score: 4 08/12/19 25 3:31 PM CDT documented as of this encounter Care Teams Hoop Driving Machine Operator Helper Relationship Specialty Start Date End Date Ana Red MPAS, P.A.-C. [address] [place] [address] [place] [address] PCP - General Internal Medicine 12/01/21 [facility] 08/25/21 documented as of this encounter
--- OUTSIDE RECORDS SUMMARY | 2024-10-04 05:53 | XMS_ITS | Encounter Summary ---
Author Organization [facility] Address [address] [place] [address] Care Team Providers Care Napping Machine Operator Name Role Phone Ana Red P.A.-C. Primary Care Pro vider Encounter Details Date Type Department Care Team (Latest Contact Info) Description 09/14/2024 Clinical Communication Ramirez Navarrete [facility] for Transplantation and Clinical Regeneration in [place], [place] [address] [place] [phone] August, Sony Mendez R.N. [address] [place] [phone] Social History Tobacco Use Types Packs/Day Years Used Date Smoking Tobacco: Former Cigarettes 1 - 10/12/2021 Passive Smoke Exposure: Never Smokeless Tobacco: Never Comments:Smoked cigarettes f rom age 18-30 about Alcohol Use Standard Drinks/Week Comments Never 0 (1 standard drink = 0.6 oz pure alcohol) Havent had any alcohol in about a year or so. [facility] Utilities Answer Date Recorded [...] How often do you attend [facility] or jain services? Patient declined 02/10/2022 Do [...] Answer Date Recorded PHQ-2 Score 0 08/11/2024 [facility] of Occupat ional Health - Occupational Stress [...] your living situation today? I have a [facility] place to live 09/09/2024 Education Answer Date Recorded What is the highest level of school you have completed or the highest degree you have received? Associate degree: occupational, technical, or vocational program 07/16/2021 Comments No Sex and Gender Information Value Date Recorded Sex Assigned at Female 04/12/2021 7:39 PM ELECTRICAL TECH Legal Sex Female 7:53 PM ELECTRICAL TECH Gender Identity Female 04/12/2021 7:39 PM ELECTRICAL TECH Sexual Orientation Straight 04/12/2021 7: 39 PM ELECTRICAL TECH documented as of this encounter Plan of Treatment Upcoming Encounters Date Type Department Care Team (Latest Contact Info) Description 10/05/2024 9:30 AM CDT Appointment Department of Radiology, [facility], in [place], [place] [address] [place] [address] Marisabel Carpenter APRN, C.N.P., D.N.P. 200 [place] [phone] 10/05/2024 12:00 PM CDT Appointment Division of Pulmonary Medicine in [place], [place] [address] [place] [address] Edgar Montgomery M.B.B.S., M.S. [address] [place] [phone] 10/05/2024 2:45 PM CDT Infusion Department of Infusion Therapy in [place], [place] [address] [place] [address] Noreen Ansari P.A.-C., M.S. [address] [place] [phone] 10/10/2024 7:50 AM CDT Lab Department of Laboratory Medicine and Pathology, [facility] in [place], [place] [address] [place] [address] Marisabel Carpenter APRN, C.N.P., D.N.P. [address] [place] [phone] 10/10/2024 8:00 AM CDT Lab Department of Laboratory Medicine and Pathology, [facility] in [place], [place] [address] [place] [address] Marisabel Carpenter APRN, C.N.P., D.N.P. [address] [place] [phone] 10/10/2024 8:30 AM CDT Nurse Only [facility] in [place], [place] [address] [place] [address] Marisabel Carpenter APRN, C.N.P., D.N.P. [address] [place] [phone] 10/10/2024 9:20 AM CDT Appointment Department of Radiology, [facility] in [place], [place] [address] [place] [address] Marisabel Carpenter APRN, C.N.P., D.N.P. [address] [place] [phone] 10/10/2024 9:45 AM CDT [facility] [place] [place] [address] [place] [address] Marisabel Carpenter APRN, C.N.P., D.N.P. [address] [place] [phone] 10/10/2024 1:30 PM CDT Appointment Department of Radiology, [facility] in [place], [place] [address] [place] [address] Marisabel Carpenter APRN, C.N.P., D.N.P. [address] [place] [phone] Discharge Disposition: Home or Self Care 10/10/2024 2:45 PM CDT Appointment Department of Radiology, [facility], in [place], [place] [address] [place] [address] Marisabel Carpenter APRN, C.N.P., D.N.P. [address] [place] [phone] 10/11/2024 8:00 AM CDT Office Visit Ramirez diaz [facility] for Transplantation and Clinical Regeneration in [place], [place] [address] [place] [address] PintMarisabel APRN, C.N.P., D.N.P. [address] [place] [phone] 10/11/2024 11:00 AM CDT Comprehensive Visit [facility] for Transplantation and Clinical Regeneration in [place], [place] [address] [place] [phone] Sree Devlin M.D. [address] [place] [phone] 10/11/2024 1:00 PM CDT Comprehensive Visit Department of Otorhinolaryngology in [place], [place] [address] [place] [phone] Randal Urbano P.A.-C., M.S. [address] [place] [phone] 10/11/2024 2:00 PM CDT Office Visit [facility] for Transplantation and Clinical Regeneration in [place], [place] [address] [place] [phone] Hiro Murillo P.A.-C. [address] [place] [phone] 10/11/2024 4:00 PM CDT Comprehensive Visit Department of Dermatology in [place], [place] [address] [place] [phone] Parul Martinez M.D. [address] [place] [phone] 10/12/2024 8:00 AM CDT Telemedicine [facility] for Transplantation and Clinical Regeneration in [place], [place] [address] [place] [phone] Ervin Mckeon D.O. [address] [place] [phone] 11/01/2024 2:15 PM CDT Appointment Division of Pulmonary Medicine in [place], [place] [address] [place] [address] Edgar Montgomery M.B.B.S., M.S. [address] [place] [phone] documented as of this encounter Visit Diagnoses Not on filedocumented in this encounter Additional Health Concerns Infection Onset Date Last Indicated Resolved Time Protective Environment 10/10/2022 10/10/2022 Assessment Noted Time PHQ-9 Depression Total Score: 4 08/12/19 25 3:31 PM CDT documented as of this encounter Care Teams Napping Machine Operator Relationship Specialty Start Date End Date Ana Red MPAS, P.A.-C. [address] [place] [phone] PCP - General Internal Medicine 12/01/21 [facility] [place] [facility] 08/25/21 documented as of this encounter
--- OUTSIDE RECORDS SUMMARY | 2024-10-04 05:53 | XMS_ITS | Encounter Summary ---
Author Organization [facility] Address [address] [place] [address] Care Team Providers Care Community Relations Liaison Name Role Phone Ana Red P.A.-C. Primary Care Pro vider Encounter Details Date Type Department Care Team (Late st Contact Info) Description 09/18/2024 Orders Only Ramirez diaz [facility] for Transplantation and Clinical Regeneration in [place], [place] [address] [place] [phone] AugustSony R.N. [address] [place] [phone] Transplant Liver (HCC) (Primary Dx); Rejection Liver [...] in about a year or so. [facility] Utilities Answer Date Recorded In the past 12 months has e electric, gas, oil, or water [facility] threatened to shut off services in [...] How often do you attend chur or nondenominational services? Patient declined 02/10/2022 Do [...] Date Recorded PHQ-2 Score 0 08/11/2024 [facility] [place] of Occupat ional Health - Occupational Stress [...] your living situation today? I have a [facility] place to live 09/23/2024 Education Answer Date Recorded What is the highest level of school you have completed or the highest degree you have received? 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 [address] [place] [phone] 10/05/2024 12:00 PM CDT Appointment Division of Pulmonary Medicine in [place], [place] [address] [place] [address] Edgar Montgomery M.B.B.S., M.S. [address] [place] [phone] 10/05/2024 2:45 PM CDT Infusion Department of Infusion Therapy in [place], [place] [address] [place] [address] Noreen Ansari P.A.-C., M.S. [address] [place] [phone] 10/10/2024 7:50 AM CDT Lab Department of Laboratory Medicine and Pathology, [facility] in [place], [place] [address] [place] [address] Marisabel Carpenter APRN, Katrin.N.Frances, D.N.P. [address] [place] [phone] 10/10/2024 8:00 AM CDT Lab Department of Laboratory Medicine and Pathology, [facility] in [place], [place] [address] [place] [address] Marisabel Carpenter APRN C.N.PSuma, D.N.P. [address] [place] [phone] 10/10/2024 8:30 AM CDT Nurse Only [facility] in [place], [place] [address] [place] [address] Marisabel Carpenter APRN, C.N.P., D.N.P. [address] [place] [address] 10/10/2024 9:20 AM CDT Appointment Department of Radiology, [facility] in [place], [place] [address] [place] [address] Marisabel Carpenter APRN, C.N.P., D.N.P. [address] [place] [phone] 10/10/2024 9:45 AM CDT Appointment [place] [address] [place] [address] Marisabel Carpenter APRN, C.N.PSuma, D.N.P. [address] [place] [phone] 10/10/2024 1:30 PM CDT Appointment Department of Radiology, [facility] in [place], [place] [address] [place] [address] Marisabel Carpenter APRN, C.N.P., D.N.P. [address] [place] [phone] Discharge Disposition: Home or Self Care 10/10/2024 2:45 PM CDT Appointment Department of Radiology, [facility] in [place], [place] [address] [place] [address] Marisabel Carpenter APRN, C.N.P., D.N.P. [address] [place] [phone] 10/11/2024 8:00 AM CDT Office Visit [facility] in [place], [place] [address] [place] [address] Marisabel Carpenter APRN, C.N.P., D.N.P. [address] [place] [phone] 10/11/2024 11:00 AM CDT Comprehensive Visit [facility] for Transplantation and Clinical Regeneration in [place], [place] [address] [place] [phone] Sree Devlin M.D. [address] [place] [phone] 10/11/2024 1:00 PM CDT Comprehensive Visit Department of Otorhinolaryngology in [place], [place] [address] [place], [place] [phone] Randal Urbano, P.A.-C., M.S. [address] [place] [phone] 10/11/2024 2:00 PM CDT Office Visit [facility] for Transplantation and Clinical Regeneration in [place], [place] [address] [place] [phone] Hiro Murillo P.A.-C. [address] [place] [phone] 10/11/2024 4:00 PM CDT Comprehensive Visit Department of Dermatology in [place], [place] [address] [place] [phone] Parul Martinez M.D. [address] [place] [phone] 10/12/2024 8:00 AM CDT Telemedicine [facility] for Transplantation and Clinical Regeneration in [place], [place] [address] [place] [phone] Ervin Mckeon D.O. [address] [place] [phone] 11/01/2024 2:15 PM CDT Appointment Division of Pulmonary Medicine in [place], [place] [address] [place] [address] Edgar Montgomery M.B.B.S., M.S. [address] [place] [phone] documented as of this encounter Visit Diagnoses Diagnosis Transplant Liver (HCC)- Primary Rejection Liver Transplant (HCC) documented in this encounter Additional Health Concerns Infection Onset Date Last Indicated Resolved Time Protective Environment 10/10/2022 10/10/2022 Assessment Noted Time PHQ-9 Depression Total Score: 4 08/12/19 25 3:31 PM CDT documented as of this encounter Care Teams Community Relations Liaison Relationship Specialty Start Date End Date Ana Red MPAS, P.A.-C. [address] [place] [phone] PCP - General Internal Medicine 12/01/21 [facility] [place] [facility] 08/25/21 documented as of this encounter
--- OUTSIDE RECORDS SUMMARY | 2024-10-04 05:53 | XMS_ITS | Encounter Summary ---
Author Organization [facility] Address [address] [place] [address] Care Team Providers Care Polymerization Engineer Name Role Phone Ana Red P.A.-C. Primary Care Pro vider Encounter Details Date Type Department Care Team (Latest Contact Info) Description 09/14/2024 Clinical Communication Ramirez Navarrete [facility] for Transplantation and Clinical Regeneration in [place], [place] [address] [place] [phone] August, Sony Mendez R.N. [address] [place] [phone] Social History Tobacco Use Types Packs/Day Years Used Date Smoking Tobacco: Former Cigarettes 1 - 10/12/2021 Passive Smoke Exposure: Never Smokeless Tobacco: Never Comments:Smoked cigarettes f rom age 18-30 about Alcohol Use Standard Drinks/Week Comments Never 0 (1 standard drink = 0.6 oz pure alcohol) Havent had any alcohol in about a year or so. [facility] Utilities Answer Date Recorded In the [...] often do you attend [facility] or voodoo services? Patient declined 02/10/2022 Do [...] Answer Date Recorded PHQ-2 Score 0 08/11/2024 [facility] [...] your living situation today? I have a [facility] place to live 09/09/2024 Education Answer Date Recorded What is the highest level of school you have completed or the highest degree you have received? 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 200 [place] [phone] 10/05/2024 12:00 PM CDT Appointment Division of Pulmonary Medicine in [place], [place] [address] [place] [address] Edgar Montgomery M.B.B.S., M.S. [address] [place] [phone] 10/05/2024 2:45 PM CDT Infusion Department of Infusion Therapy in [place], [place] [address] [place] [address] Noreen Ansari P.A.-C., M.S. [address] [place] [phone] 10/10/2024 7:50 AM CDT Lab Department of Laboratory Medicine and Pathology, [facility] in [place], [place] [address] [place] [address] Marisabel Carpenter APRN, C.N.P., D.N.P. [address] [place] [phone] 10/10/2024 8:00 AM CDT Lab Department of Laboratory Medicine and Pathology, [facility] in [place], [place] [address] [place] [address] Marisabel Carpenter APRN, C.N.P., D.N.P. [address] [place] [phone] 10/10/2024 8:30 AM CDT Nurse Only [facility] in [place], [place] [address] [place] [address] Marisabel Carpenter APRN, C.N.P., D.N.P. [address] [place] [phone] 10/10/2024 9:20 AM CDT Appointment Department of Radiology, [facility] in [place], [place] [address] [place] [address] Marisabel Carpenter APRN, C.N.P., D.N.P. [address] [place] [phone] 10/10/2024 9:45 AM CDT [facility] [place] [place] [address] [place] [address] Marisabel Carpenter APRN, C.N.P., D.N.P. [address] [place] [phone] 10/10/2024 1:30 PM CDT Appointment Department of Radiology, [facility] in [place], [place] [address] [place] [address] Marisabel Carpenter APRN, C.N.P., D.N.P. [address] [place] [phone] Discharge Disposition: Home or Self Care 10/10/2024 2:45 PM CDT Appointment Department of Radiology, [facility], in [place], [place] [address] [place] [address] Marisabel Carpenter APRN, C.N.P., D.N.P. [address] [place] [phone] 10/11/2024 8:00 AM CDT Office Visit Ramirez diaz [facility] for Transplantation and Clinical Regeneration in [place], [place] [address] [place] [address] PintMarisabel APRN, C.N.P., D.N.P. [address] [place] [phone] 10/11/2024 11:00 AM CDT Comprehensive Visit [facility] Clinical [facility] in [place], [place] [address] [place] [phone] Sree Devlin M.D. [address] [place] [phone] 10/11/2024 1:00 PM CDT Comprehensive Visit Department of Otorhinolaryngology in [place], [place] [address] [place] [phone] Randal Urbano P.A.-C., M.S. [address] [place] [phone] 10/11/2024 2:00 PM CDT Office Visit [facility] Clinical Regeneration in [place], [place] [address] [place] [phone] Hiro Murillo P.A.-C. [address] [place] [phone] 10/11/2024 4:00 PM CDT Comprehensive Visit Department of Dermatology in [place], [place] [address] [place] [phone] Parul Martinez M.D. [address] [place] [phone] 10/12/2024 8:00 AM CDT Telemedicine [facility] for Transplantation and Clinical Regeneration in [place], [place] [address] [place] [phone] Ervin Mckeon D.O. [address] [place] [phone] 11/01/2024 2:15 PM CDT Appointment Division of Pulmonary Medicine in [place], [place] [address] [place] [address] Edgar Montgomery M.B.B.S., M.S. [address] [place] [address] documented as of this encounter Visit Diagnoses Not on filedocumented in this encounter Additional Health Concerns Infection Onset Date Last Indicated Resolved Time Protective Environment 10/10/2022 10/10/2022 Assessment Noted Time PHQ-9 Depression Total Score: 4 08/12/19 25 3:31 PM CDT documented as of this encounter Care Teams Polymerization Engineer Relationship Specialty Start Date End Date nAa Red MPAS, P.A.-C. [address] [place] [phone] PCP - General Internal Medicine 12/01/21 [facility] [place] [facility] 08/25/21 documented as of this encounter
--- OUTSIDE RECORDS SUMMARY | 2024-10-04 05:53 | XMS_ITS | Encounter Summary ---
Author Organization [facility] Address [address] [place] [address] Care Team Providers Care Superintendent Storage Area Name Role Phone Ana Red P.A.-C. Primary Care Pro vider Reason for Referral * Transplant (Routine) - Authorized Specialty Diagnoses / Procedures Referred By Meir lara Referred To Contact Transplant Diagnoses Transplant Liver (HCC) Rejection Liver Transplant (HCC) Kenny Purdy M.D. [address] [place] [phone] Phone: tel: fax: [facility] Referral ID Status Reason Start Date Expiration Date V isits Requested Visits Authorized [id number] Authorized 09/15/2024 03/17/2026 1 1 Scheduling Instructions F/U liver bx Encounter Details Date Type Department Care Team (Late st Contact Info) Description 09/15/2024 Orders Only Ramirez Nguyen [facility] for Transplantation and Clinical Regeneration in [place], [place] [address] [place] [phone] Sony Carty R.N. [address] [place] [phone] Transplant Liver (HCC) (Primary Dx); Medication Therapy [facility] Not 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; Rejection Liver Transplant (HCC) Social History Tobacco Use Types Packs/Day Years Used Date Smoking Tobacco: Former Cigarettes 1 - 10/12/2021 Passive Smoke Exposure: Never Smokeless Tobacco: Never Comments:Smoked cigarettes f rom age 18-30 about Alcohol Use Standard Drinks/Week Comments Never 0 (1 standard drink = 0.6 oz pure alcohol) Havent had any alcohol in about a year or so. 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 [address] [place] [phone] 10/05/2024 12:00 PM CDT Appointment Division of Pulmonary Medicine in [address] [phone] Edgar Montgomery M.B.B.S., M.S. [address] [place] [phone] 10/05/2024 2:45 PM CDT Infusion Department of Infusion Therapy in [address] [phone] Noreen Ansari P.A.-Katrin., M.S. [address] [place] [phone] 10/10/2024 7:50 AM CDT Lab Department of Laboratory Medicine and Pathology, [facility] in [place], [place] [address] [place] [phone] Marisabel Carpenter APRN, C.N.P., D.N.P. [address] [place] [phone] 10/10/2024 8:00 AM CDT Lab Department of Laboratory Medicine and Pathology, [facility] in [place], [place] [address] [place] [address] Marisabel Carpenter APRN, C.N.P., D.N.P. [address] [place] [phone] 10/10/2024 8:30 AM CDT Nurse Only Ramirez diaz [facility] for Transplantation and Clinical Regeneration in [place], [place] [address] [place] [address] Marisabel Carpenter APRN, C.N.P., D.N.P. [address] [place] [phone] 10/10/2024 9:20 AM CDT Appointment Department of Radiology, [facility] in [place], [place] [address] [place] [address] Marisabel Carpenter APRN, C.N.P., D.N.P. [address] [place] [phone] 10/10/2024 9:45 AM CDT Appointment Department of Laboratory Medicine and Pathology, [facility] in [place], [place] [address] [place] [address] Marisabel Carpenter APRN, C.N.P., D.N.P. [address] [place] [phone] 10/10/2024 1:30 PM CDT Appointment Department of Radiology, [facility] in [place], [place] [address] [place] [address] Marisabel Carpenter APRN, C.N.P., D.N.P. [address] [place] [phone] Discharge Disposition: Home or Self Care 10/10/2024 2:45 PM CDT Appointment Department of Radiology, [facility], in [place], [place] [address] [place] [address] Marisabel Carpenter APRN C.N.PSuma, D.N.P. [address] [place] [phone] 10/11/2024 8:00 AM CDT Office Visit [facility] for Transplantation and Clinical Regeneration in [place], [place] [address] [place] [address] Marisabel Carpenter APRN, C.N.PSuma, D.N.P. [address] [place] [phone] 10/11/2024 11:00 AM CDT Comprehensive Visit [facility] in [place], [place] [address] [place] [address] Sree Devlin M.D. [address] [place] [phone] 10/11/2024 1:00 PM CDT Comprehensive Visit Department of Otorhinolaryngology in [place], [place] [address] [place] [address] Randal Urbano, Shanita.Silvano.-C., M.S. [address] [place] [phone] 10/11/2024 2:00 PM CDT Office Visit [facility] Transplantation and Clinical Regeneration in [place], [place] [address] [place] [address] Hiro Murillo P.A.-C. [address] [place] [phone] 10/11/2024 4:00 PM CDT Comprehensive Visit Department of Dermatology in [place], [place] [address] [place] [address] Parul Martinez M.D. [address] [place] [phone] 10/12/2024 8:00 AM CDT Telemedicine [facility] for Transplantation and Clinical Regeneration in [place], [place] [address] [place] [address] Ervin Mckeon D.O. [address] [place] [phone] 11/01/2024 2:15 PM CDT Appointment Division of Pulmonary Medicine in [place], [place] [address] [place] [address] Edgar Montgomery M.B.B.S., M.S. [address] [place] [phone] Scheduled Referrals Name Type Priority Associated Diagnoses Order Schedule Transplant Liver office visit (clinic) Outpatient Referral Routine Transplant Liver (HCC) Rejection Liver Transplant (HCC) Expected: 09/20/2024, Expires: 12/16/2025 documented as of this encounter Results * (ABNORMAL) T-Cell Subsets, [...] % CD4 09/19/2024 11:51 AM CDT SDSC %CD4+UB90I-WT31-F D45RO+ (Tem) 7.2 0.7 - 12.0 % CD4 09/19/2024 11:51 AM CDT SDSC %CD8+CD45RO+ memory T cells 58(H) 4 - 49 % CD8 09/19/2024 11:51 AM CDT SDSC %CD8+CD62L+CD27+C D45RO+ (Tcm) 26(H) 1 - 18 % CD8 09/19/2024 11:51 AM CDT SDSC %CD8+HW25M-SL79-R D45RO+ (Tem) 14(H) 0 - 6 % [...] cells/m cL 09/19/2024 11:51 AM CDT SDSC CD4+DV33J-HP62-QO 45RO+ (Tem) 11 7 - 99 cells/m cL 09/19/2024 11:51 AM CDT SDSC CD8+CD45RO+ memory T cells 234 15 - 275 cells/m cL 09/19/2024 11:51 AM CDT SDSC CD8+CD62L+CD27+CD 45RO+ (Tcm) 105 6 - 135 cells/m 09/19/2024 11:51 AM CDT SDSC CD8+CO23F-YU97- CD45RO+ (Tem) 56(H) 0 - 36 cells/m 09/19/2024 11:51 AM CDT SDSC Activated CD4 T cells (4+CD25+) 10(L) 30 - 207 cells/m cL 09/19/2024 11:51 AM CDT SDSC CD4+HLA DR+CD28+ T cells 26 17 - 122 cells/m cL 09/19/2024 11:51 AM CDT SDSC CD8+HLA DR+CD28+ [...] number of CD8 effector memory T cells (CD8+AO54O-PN84-NP5 5RO+) (Tem). There is a moderate increase [...] by: Oliver Mcdonald M.D. 09/19/2024 11:51 AM CDT [facility] Comment: ----ADDITIONAL INFORMATION---- This test was developed using an analyte specific reagent. Its performance characteristics were determined by [facility] in a manner consistent with CLIA requirements. This test has not been cleared or approved by the U.S. Food and Drug Administration. Blood (Blood, Venous) 09/18/2024 12:34 PM CDT 09/18/2024 3:07 PM CDT Kenny Purdy M.D. LAB BLOOD ADD-ON Final Result [facility] [address] [place] [address] [facility] [address] [place] [address] [place] [address] * Prothrombin Time (PT) (09/18/2024 12:34 PM CDT) Prothrombin Time, P 9.4 9.4 - 12.5 sec 09/18/2024 1:26 PM CDT DTL INR 0.9 0.9 - 1.1 09/18/2024 1:26 PM CDT [facility]TL Comment: ----ADDITIONAL INFORMATION---- Standard intensity warfarin therapeutic range: 2.0 to 3.0 High intensity warfarin therapeutic range: 2.5 to 3.5 Blood (Blood, Venous) 09/18/2024 12:34 PM CDT 09/18/2024 12:52 PM CDT Kenny Purdy M.D. LAB BLOOD ADD-ON Final Result Performing Organization Address [facility] Co de Phone Number [facility] [address] [place] [address], [facility] [address] [place] [address] * (ABNORMAL) Tacrolimus, Trough (09/18/2024 12:34 PM CDT) [facility] Tacrolimus, Trough <1.0(L) 5.0-15.0 (Trough) ng/mL 09/18/2024 4:07 PM CDT [facility] Comment: ----ADDITIONAL INFORMATION---- Target steady-state trough concentrations vary depending on the type of transplant, concomitant immunosuppression, clinical/institutional protocols, and time post-transplant. Results should be interpreted in conjunction with this clinical information and any physical signs/symptoms of rejection/toxicity. Testing performed by Liquid Chromatography-Tandem Mass Spectrometry (LC-MS/MS). This test was developed and its performance characteristics determined by [facility] in a manner consistent with CLIA requirements. This test has not been cleared or approved by the U.S. Food and Drug Administration. Blood (Blood, Venous) 09/18/2024 12:34 PM CDT 09/18/2024 2:46 PM CDT Kenny Purdy M.D. LAB BLOOD NON AD D-ON Final Result Performing Organization Address [facility] Co de Phone Number [facility] [address] [place] [address] [facility] [address] [place] [address] [place] [address] * (ABNORMAL) Comprehensive Metabolic Panel (09/18/2024 12:34 PM CDT) Pathologist [facility] Potassium, S 3.4(L) 3.6 - 5.2 mmol/L [...] Purdy M.D. LAB BLOOD ADD-ON Final Result [facility] [address] [place] [address], [facility] DTL [facility] [address] [place] [address] * (ABNORMAL) CBC no call back, reflex [...] AD D-ON Final Result Performing Organization Address City/[facility] Co de Phone Number [facility] [address] [place] [address], [facility] [address] [place], [place] [phone] [place] [address] 200 [place] [address] * (ABNORMAL) Bilirubin, Direct (09/18/2024 12:34 PM CDT) Bilirubin, Direct, S 0.5(H) 0.0 - 0.3 mg/dL 09/18/2024 1:26 PM CDT DTL Blood (Blood, Venous) 09/18/2024 12:34 PM CDT 09/18/2024 1:02 PM CDT Kenny Purdy M.D. LAB BLOOD ADD-ON Final Result Performing Organization Address City/[facility] Co de Phone Number [facility] [address] [place], [place] [phone] [place] [address] 200 [place] [address] documented in this encounter Visit Diagnoses Diagnosis Transplant Liver (HCC)- Primary Medication Therapy [facility] Not 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 Rejection Liver Transplant (HCC) documented in this encounter Additional Health Concerns Infection Onset Date Last Indicated Resolved Time Protective Environment 10/10/2022 10/10/2022 Assessment Noted Time PHQ-9 Depression Total Score: 4 08/12/19 25 3:31 PM CDT documented as of this encounter Care Teams Superintendent Storage Area Relationship Specialty Start Date End Date Ana Red MPAS, P.A.-C. [address] [place] [address] [place] [address] PCP - General Internal Medicine 12/01/21 [facility] 08/25/21 documented as of this encounter
--- OUTSIDE RECORDS SUMMARY | 2024-10-04 05:53 | XMS_ITS | Encounter Summary ---
Author Organization [facility] Address [address] [place] [id number] Care Team Providers Care Multimedia Engineer Name Role Phone Ana Red P.A.-C. Primary Care Pro vider Reason for Visit * Reason Onset Date Comments Order Clarification 09/19/2024 Thymo infusi on order Encounter Details Date Type Department Care Team (Latest Contact Info) Description 09/19/2024 Clinical Communication [facility] in [place], [place] [address] [place] [address] [phone] Noreen Ansari P.A.-Katrin., M.S. [address] [place] [address] [phone] Order Clarification (Thymo infusion order) Social History Tobacco Use Types Packs/Day Years Used Date Smoking Tobacco: Former Cigarettes 1 - 10/12/2021 Passive Smoke Exposure: Never Smokeless Tobacco: Never Comments:Smoked cigarettes f rom age 18-30 about Alcohol Use Standard Drinks/Week Comments Never 0 (1 standard drink = 0.6 oz pure alcohol) Havent had any alcohol in about a year or so. [facility] Utilities Answer Date Recorded In the [...] do you attend [facility] or protestant services? Patient declined 02/10/2022 Do [...] Answer Date Recorded PHQ-2 Score 0 08/11/2024 [facility] of Occupat ional Health - Occupational Stress [...] living situation today? I have a [facility] place to live 09/23/2024 Education Answer Date Recorded What is the highest level of school you have completed or the highest degree you have received? Associate degree: occupational, technical, or vocational program 07/16/2021 Comments No Sex and Gender Information Value Date Recorded Sex Assigned at Female 04/12/2021 7:39 PM DIRECTOR DESIGN Legal Sex Female 7:53 PM DIRECTOR DESIGN Gender Identity Female 04/12/2021 7:39 PM DIRECTOR DESIGN Sexual Orientation Straight 04/12/2021 7: 39 PM DIRECTOR DESIGN documented as of this encounter Plan of Treatment Upcoming Encounters Date Type Department Care Team (Latest Contact Info) Description 10/05/2024 9:30 AM CDT Appointment Department of Radiology, [facility], in [place], [place] [address] [place] [address] Marisabel Carpenter APRN, C.N.PSuma, D.N.P. [address] [place] [phone] 10/05/2024 12:00 PM CDT Appointment Division of Pulmonary Medicine in [place], [place] [address] [place] [address] Edgar Montgomery M.B.BSumaS., M.S. [address] [place] [phone] 10/05/2024 2:45 PM CDT Infusion Department of Infusion Therapy in [place], [place] [address] [place] [address] Noreen Ansari P.A.-C., M.S. [address] [place] [phone] 10/10/2024 7:50 AM CDT Lab Department of Laboratory Medicine and Pathology, [facility] in [place], [place] [address] [place] [address] Marisabel Carpenter APRN, C.N.Frances, D.N.P. [address] [place] [phone] 10/10/2024 8:00 AM CDT Lab Department of Laboratory Medicine and Pathology, [facility], in [place], [place] [address] [place] [address] Marisabel Carpenter APRN, Katrin.N.P., D.N.P. [address] [place] [phone] 10/10/2024 8:30 AM CDT Nurse Only [facility] in [place], [place] [address] [place] [phone] Marisabel Carpenter APRN, C.N.P., D.N.P. [address] [place] [phone] 10/10/2024 9:20 AM CDT Appointment Department of Radiology, [facility] in [place], [place] [address] [place] [address] Marisabel Carpenter APRN, C.N.P., D.N.P. [address] [place] [phone] 10/10/2024 9:45 AM CDT Appointment Department of Laboratory Medicine and Pathology, [facility] in [place], [place] [address] [place] [phone] Marisabel Carpenter APRN, C.N.P., D.N.P. [address] [place] [phone] 10/10/2024 1:30 PM CDT Appointment Department of Radiology, [facility] in [place], [place] [address] [place] [address] Marisabel Carpenter APRN, C.N.P., D.N.P. [address] [place] [phone] Discharge Disposition: Home or Self Care 10/10/2024 2:45 PM CDT Appointment Department of Radiology, [facility] in [place], [place] [address] [place] [address] Marisabel Carpenter APRN, C.N.P., D.N.P. [address] [place] [phone] 10/11/2024 8:00 AM CDT Office Visit [facility] Trans[facility] and Clinical Regeneration in [place], [place] [address] [place] [phone] Marisabel Carpenter APRN, CSumaNSumaPSuma, D.N.P. [address] [place] [phone] 10/11/2024 11:00 AM CDT Comprehensive Visit [facility] Transplantation and Clinical Regeneration in [place], [place] [address] [place] [phone] Sree Devlin M.D. [address] [place] [phone] 10/11/2024 1:00 PM CDT Comprehensive Visit Department of Otorhinolaryngology in [place], [place] [address] [place] [phone] Randal Urbano, P.A.-C., M.S. [address] [place] [phone] 10/11/2024 2:00 PM CDT Office Visit [facility] Transplantation and Clinical Regeneration in [place], [place] [address] [place] [phone] Hiro Murillo P.A.-C. [address] [place] [phone] 10/11/2024 4:00 PM CDT Comprehensive Visit Department of Dermatology in [place], [place] [address] [place] [phone] Parul Martinez M.D. [address] [place] [phone] 10/12/2024 8:00 AM CDT Telemedicine [facility] Transplantation [facility] Clinical Regeneration in [place], [place] [address] [place] [address] Ervin Mckeon D.O. [address] [place] [phone] 11/01/2024 2:15 PM CDT Appointment Division of Pulmonary Medicine in [place], [place] [address] [place] [phone] Edgar Montgomery M.B.B.S., M.S. [address] [place] [phone] documented as of this encounter Visit Diagnoses Not on filedocumented in this encounter Additional Health Concerns Infection Onset Date Last Indicated Resolved Time Protective Environment 10/10/2022 10/10/2022 Assessment Noted Time PHQ-9 Depression Total Score: 4 08/12/19 25 3:31 PM CDT documented as of this encounter Care Teams Multimedia Engineer Relationship Specialty Start Date End Date Ana Red MPAS, P.A.-C. [address] [place] [address] [place] [phone] PCP - General Internal Medicine 12/01/21 [facility] [place] [facility] 08/25/21 documented as of this encounter
--- OUTSIDE RECORDS SUMMARY | 2024-10-04 05:53 | XMS_ITS | Encounter Summary ---
Author Organization [facility] Address [address] [place] [address] Care Team Providers Care Networker Name Role Phone Ana Red P.A.-C. Primary Care Pro vider Encounter Details Date Type Department Care Team (Late st Contact Info) Description 09/15/2024 Clinical Communication Department of Nutrition and Diabetes Education in [place], [place] [address] [place] [address] Nancy Feliz, R.N. Social History Tobacco Use Types Packs/Day Years Used Date Smoking Tobacco: Former Cigarettes 1 - 10/12/2021 Passive Smoke Exposure: Never Smokeless Tobacco: Never Comments:Smoked cigarettes f rom age 18-30 about Alcohol Use Standard Drinks/Week Comments Never 0 (1 standard drink = 0.6 oz pure alcohol) Havent had any alcohol in about a year or so. [facility] Utilities Answer Date Recorded In the past [...] your living situation today? I [facility] a [facility] place [facility] 09/09/2024 Education Answer Date Recorded What is the highest level of school you have completed or the highest degree you have received? Associate degree: occupational, technical, or vocational program 07/16/2021 Comments No Sex and Gender Information Value Date Recorded Sex Assigned at Female 04/12/2021 7:39 PM FIGURE SKATER Legal Sex Female 7:53 PM FIGURE SKATER Gender Identity Female 04/12/2021 7:39 PM FIGURE SKATER Sexual Orientation Straight 04/12/2021 7: 39 PM FIGURE SKATER documented as of this encounter Plan of Treatment Upcoming Encounters Date Type Department Care Team (Latest Contact Info) Description 10/05/2024 9:30 AM CDT Appointment Department of Radiology, [facility], in [place], [place] 200 [place] [address] Marisabel Carpenter APRN, C.N.P., D.N.P. 200 [place] [address] 10/05/2024 12:00 PM CDT Appointment Division of Pulmonary Medicine in [place], [place] [address] [place] [address] Edgar Montgomery M.B.B.S., M.S. [address] [place] [phone] 10/05/2024 2:45 PM CDT Infusion Department of Infusion Therapy in [place], [place] [address] [place] [address] Noreen Ansari P.A.-C., M.S. [address] [place] [phone] 10/10/2024 7:50 AM CDT Lab Department of Laboratory Medicine and Pathology, [facility] in [place], [place] [address] [place] [address] Marisabel Carpenter APRN, C.N.P., D.N.P. [address] [place] [phone] 10/10/2024 8:00 AM CDT Lab Department of Laboratory Medicine and Pathology, [facility] in [place], [place] [address] [place] [address] Marisabel Carpenter APRN, C.N.P., D.N.P. [address] [place] [phone] 10/10/2024 8:30 AM CDT Nurse Only [facility] in [place], [place] [address] [place] [address] Marisabel Carpenter APRN, C.N.P., D.N.P. [address] [place] [phone] 10/10/2024 9:20 AM CDT Appointment Department of Radiology, [facility] in [place], [place] [address] [place] [address] Marisabel Carpenter APRN, C.N.P., D.N.P. [address] [place] [phone] 10/10/2024 9:45 AM CDT Appointment Department of Laboratory Medicine and Pathology, [facility] in [place], [place] [address] [place] [address] Marisabel Carpenter APRN, C.N.PSuma, D.N.P. [address] [place] [phone] 10/10/2024 1:30 PM CDT Appointment Department of Radiology, [facility] in [place], [place] [address] [place] [address] Marisabel Carpenter APRN, C.N.P., D.N.P. [address] [place] [phone] Discharge Disposition: Home or Self Care 10/10/2024 2:45 PM CDT Appointment Department of Radiology, [facility], in [place], [place] [address] [place] [address] Marisabel Carpenter APRN, C.N.P., D.N.P. [address] [place] [phone] 10/11/2024 8:00 AM CDT Office Visit Ramirez diaz [facility] Trans[facility] and Clinical Regeneration in [place], [place] [address] [place] [address] Marisabel Carpenter APRN, C.N.P., D.N.P. [address] [place] [phone] 10/11/2024 11:00 AM CDT Comprehensive Visit [facility] in [place], [place] [address] [place] [phone] Sree Devlin M.D. [address] [place] [phone] 10/11/2024 1:00 PM CDT Comprehensive Visit Department of Otorhinolaryngology in [place], [place] [address] [place] [phone] Randal Urbano P.A.-C., M.S. [address] [place] [phone] 10/11/2024 2:00 PM CDT Office Visit [facility] Transplantation and Clinical Regeneration in [place], [place] [address] [place] [phone] Hiro Murillo P.A.-C. [address] [place] [phone] 10/11/2024 4:00 PM CDT Comprehensive Visit Department of Dermatology in [place], [place] [address] [place] [phone] Parul Martinez M.D. [address] [place] [phone] 10/12/2024 8:00 AM CDT Telemedicine [facility] Transplantation and Clinical Regeneration in [place], [place] [address] [place] [phone] Ervin Mckeon D.O. [address] [place] [phone] 11/01/2024 2:15 PM CDT Appointment Division of Pulmonary Medicine in [place], [place] [address] [place] [address] Edgar Montgomery M.B.B.S., M.S. [address] [place] [address] documented as of this encounter Visit Diagnoses Not on filedocumented in this encounter Additional Health Concerns Infection Onset Date Last Indicated Resolved Time Protective Environment 10/10/2022 10/10/2022 Assessment Noted Time PHQ-9 Depression Total Score: 4 08/12/19 25 3:31 PM CDT documented as of this encounter Care Teams Networker Relationship Specialty Start Date End Date Ana Red MPAS, P.A.-C. [address] [place] [phone] PCP - General Internal Medicine 12/01/21 [facility] [place] [facility] 08/25/21 documented as of this encounter
--- OUTSIDE RECORDS SUMMARY | 2024-10-04 05:53 | XMS_ITS | Encounter Summary ---
Author Organization [facility] Address [address] [place] [address] Care Team Providers Care Vegetable Farmer Name Role Phone Ana Red P.A.-C. Primary Care Pro vider Encounter Details Date Type Department Care Team (Late st Contact Info) Description 09/14/2024 Orders Only Ramirez diaz [facility] for Transplantation and Clinical Regeneration in [place], [place] [address] [place] [phone] Noreen Ansari P.Silvano.-C., M.S. [address] [place] [phone] Social History Tobacco Use Types Packs/Day Years [...] th e electric, gas, oil, or water [employer] threatened to shut off services in your [...] Answer Date Recorded PHQ-2 Score 0 08/11/2024 [facility] [place] of Occupat ional Health - Occupational Stress [...] have a [facility] live 09/23/2024 Education Answer Date Recorded What is the highest level of school you have completed or the highest degree you have received? Associate degree: occupational, technical, or vocational program 07/16/2021 Comments No Sex and Gender Information Value Date Recorded Sex Assigned at Female 04/12/2021 7:39 PM CONTRACTING SPECIALIST Legal Sex Female 7:53 PM CONTRACTING SPECIALIST Gender Identity Female 04/12/2021 7:39 PM CONTRACTING SPECIALIST Sexual Orientation Straight 04/12/2021 7: 39 PM CONTRACTING SPECIALIST documented as of this encounter Plan of Treatment Upcoming Encounters Date Type Department Care Team (Latest Contact Info) Description 10/05/2024 9:30 AM CDT Appointment Department of Radiology, [facility], in [place], [place] [address] [place] [address] Marisabel Carpenter APRN, C.N.P., D.N.P. [address] [place] [phone] 10/05/2024 12:00 PM CDT Appointment Division of Pulmonary Medicine in [place], [place] [address] [place] [address] Edgar Montgomery M.B.B.S., M.S. [address] [place] [phone] 10/05/2024 2:45 PM CDT Infusion Department of Infusion Therapy in [place], [place] [address] [place] [address] Noreen Ansari P.A.-C., M.S. [address] [place] [phone] 10/10/2024 7:50 AM CDT Lab Department of Laboratory Medicine and Pathology, [facility] in [place], [place] [address] [place] [address] Marisabel Carpenter APRN, C.N.P., D.N.P. [address] [place] [phone] 10/10/2024 8:00 AM CDT Lab Department of Laboratory Medicine and Pathology, [facility] in [place], [place] [address] [place] [address] Marisabel Carpenter APRN, C.N.P., D.N.P. [address] [place] [phone] 10/10/2024 8:30 AM CDT Nurse Only [facility] in [place], [place] [address] [place] [address] Marisabel Carpenter APRN, C.N.P., D.N.P. [address] [place] [phone] 10/10/2024 9:20 AM CDT Appointment Department of Radiology, [facility] in [place], [place] [address] [place] [address] Marisabel Carpenter APRN, C.N.P., D.N.P. [address] [place] [phone] 10/10/2024 9:45 AM CDT Appointment Department of Laboratory Medicine and Pathology, [facility] in [place], [place] [address] [place] [phone] Marisabel Carpenter APRN, Katrin.N.PSuma, D.N.P. [address] [place] [phone] 10/10/2024 1:30 PM CDT Appointment Department of Radiology, [facility] in [place], [place] [address] [place] [address] Marisabel Carpenter APRN, C.N.P., D.N.P. [address] [place] [phone] Discharge Disposition: Home or Self Care 10/10/2024 2:45 PM CDT Appointment Department of Radiology, [facility] in [place], [place] [address] [place] [address] Marisabel Carpenter APRN, C.N.P., D.N.P. [address] [place] [phone] 10/11/2024 8:00 AM CDT [facility] in [place], [place] [address] [place] [phone] Marisabel Carpenter APRN, C.NDayne, D.N.P. [address] [place] [phone] 10/11/2024 11:00 AM CDT Comprehensive Visit [facility] for Transplantation and Clinical Regeneration in [place], [place] [address] [place] [phone] Sree Devlin M.D. [address] [place] [phone] 10/11/2024 1:00 PM CDT Comprehensive Visit Department of Otorhinolaryngology in [place], [place] [address] [place] [phone] Randal Urbano P.A.-Katrin., M.S. [address] [place] [phone] 10/11/2024 2:00 PM CDT Office Visit [facility] for Transplantation and Clinical Regeneration in [place], [place] [address] [place] [phone] Hiro Murillo P.A.-C. [address] [place] [phone] 10/11/2024 4:00 PM CDT Comprehensive Visit Department of Dermatology in [place], [place] [address] [place] [phone] Parul Martinez M.D. [address] [place] [phone] 10/12/2024 8:00 AM CDT Telemedicine [facility] for Transplantation and Clinical Regeneration in [place], [place] [address] [place] [phone] Ervin Mckeon D.O. [address] [place] [address] 11/01/2024 2:15 PM CDT Appointment Division of Pulmonary Medicine in [place], [place] [address] [place] [address] Edgar Montgomery M.B.B.S., M.S. [address] [place] [phone] documented as of this encounter Visit Diagnoses Not on filedocumented in this encounter Additional Health Concerns Infection Onset Date Last Indicated Resolved Time Protective Environment 10/10/2022 10/10/2022 Assessment Noted Time PHQ-9 Depression Total Score: 4 08/12/19 25 3:31 PM CDT documented as of this encounter Care Teams Vegetable Farmer Relationship Specialty Start Date End Date Ana Red MPAS, P.A.-C. [address] [place] [phone] PCP - General Internal Medicine 12/01/21 [facility] [place] [facility] 08/25/21 documented as of this encounter
--- OUTSIDE RECORDS SUMMARY | 2024-10-04 05:53 | XMS_ITS | Encounter Summary ---
Author Organization [facility] Address [address] [place] [address] Care Team Providers Care Bottom Cager Name Role Phone Ana Red P.A.-C. Primary Care Pro vider Reason for Referral * Outpatient (Routine) - Authorized Specialty Diagnoses / Procedures Referred By Meir lara Referred To Contact Diagnoses Transplant Liver (HCC) Rejection Liver Transplant (HCC) Procedures US Liver Transplant Biopsy US Liver Biopsy [place] BX NDL LIVER PERC [place] US GUIDE PLC NDL Noreen Ansari P.A.-C., M.S. [address] [place] [phone] Phone: tel: fax: [facility] Referral ID Status Reason Start Date Expiration Date V isits Requested Visits Authorized [id number] Authorized 09/14/2024 12/15/2025 1 1 Encounter Details Date Type Department Care Team (Late st Contact Info) Description 09/14/2024 Orders Only Ramirez Nguyen [place] [facility] Trans[facility] Clinical Regeneration in [place], [place] [address] [place] [phone] Sony Carty R.N. [address] [place] [phone] Transplant Liver (HCC) (Primary Dx); Rejection Liver [...] or so. [facility] [employer] Answer Date Recorded In the past 12 months has e [employer], oil, or water [employer] threatened to shut off services in your [...] How often do you attend [facility] or mosque services? Patient declined 02/10/2022 Do you belong [...] Score 0 08/11/2024 [facility] [...] Sex Assigned at Female 04/12/2021 7:39 PM TERMINAL OPERATOR Legal Sex Female 7:53 PM TERMINAL OPERATOR Gender Identity Female 04/12/2021 7:39 PM TERMINAL OPERATOR Sexual Orientation Straight 04/12/2021 7: 39 PM TERMINAL OPERATOR documented as of this encounter Plan of Treatment Upcoming Encounters Date Type Department Care Team (Latest Contact Info) Description 10/05/2024 9:30 AM CDT Appointment Department of Radiology, [facility] in [address] [phone] Marisabel Carpenter APRN, C.N.P., D.N.P. [address] [place] [phone] 10/05/2024 12:00 PM CDT Appointment Division of Pulmonary Medicine in [address] [phone] Edgar Montgomery M.B.B.S., M.S. [address] [place] [phone] 10/05/2024 2:45 PM CDT Infusion Department of Infusion Therapy in [address] [address] Noreen Ansari P.A.-C., M.S. [address] [place] [phone] 10/10/2024 7:50 AM CDT Lab Department of Laboratory Medicine and Pathology, [facility] in [place], [place] [address] [place] [phone] Marisabel Carpenter APRN, C.N.P., D.N.P. [address] [place] [phone] 10/10/2024 8:00 AM CDT Lab Department of Laboratory Medicine and Pathology, [facility] in [place], [place] [address] [place] [address] Marisabel Carpenter APRN, C.N.P., D.N.P. [address] [place] [phone] 10/10/2024 8:30 AM CDT Nurse Only Ramirez diaz [facility] for Transplantation and Clinical Regeneration in [place], [place] [address] [place] [address] Marisabel Carpenter APRN, C.N.P., D.N.P. [address] [place] [phone] 10/10/2024 9:20 AM CDT [facility] [place] [place] [address] [place] [address] Marisabel Carpenter APRN, C.N.P., D.N.P. [address] [place] [phone] 10/10/2024 9:45 AM CDT Appointment Department of Laboratory Medicine and Pathology, [facility] in [place], [place] [address] [place] [address] Marisabel Carpenter APRN, C.N.P., D.N.P. [address] [place] [phone] 10/10/2024 1:30 PM CDT Appointment Department of Radiology, [facility] in [place], [place] [address] [place] [address] Marisabel Carpenter APRN, C.N.P., D.N.P. [address] [place] [phone] Discharge Disposition: Home or Self Care 10/10/2024 2:45 PM CDT Appointment Department of Radiology, [facility], in [place], [place] [address] [place] [address] Marisabel Carpenter APRN, C.N.PSuma, D.N.P. [address] [place] [phone] 10/11/2024 8:00 AM CDT [facility] in [place], [place] [address] [place] [phone] Marisabel Carpenter APRN, C.N.Frances, D.N.P. [address] [place] [phone] 10/11/2024 11:00 AM CDT Comprehensive Visit [facility] Transplantation and Clinical Regeneration in [place], [place] [address] [place] [phone] Sree Devlin M.D. [address] [place] [phone] 10/11/2024 1:00 PM CDT Comprehensive Visit Department of Otorhinolaryngology in [place], [place] [address] [place] [phone] Randal Urbano, P.A.-C., M.S. [address] [place] [phone] 10/11/2024 2:00 PM CDT Office Visit [facility] [place] for Transplantation and Clinical Regeneration in [place], [place] [address] [place] [address] Hiro Murillo, P.A.-CSuma [address] [place] [phone] 10/11/2024 4:00 PM CDT Comprehensive Visit Department of Dermatology in [place], [place] [address] [place] [phone] Parul Martinez M.D. [address] [place] [phone] 10/12/2024 8:00 AM CDT Telemedicine [facility] [place] for Transplantation and Clinical Regeneration in [place], [place] [address] [place] [phone] Ervin Mckeon D.O. [address] [place] [phone] 11/01/2024 2:15 PM CDT Appointment Division of Pulmonary Medicine in [place], [place] [address] [place] [phone] Edgar Montgomery M.B.B.S., M.S. [address] [place] [phone] Scheduled Orders Name Type Priority Associated Diagnoses Orde r Schedule US Liver Transplant Biopsy Imaging RAD - Routine (most inpatients and all outpatients) Transplant Liver (HCC) Rejection Liver Transplant (HCC) Expected: 09/18/2024, Expires: 12/15/2025 documented as of this encounter Visit Diagnoses Diagnosis Transplant Liver (HCC)- Primary Rejection Liver Transplant (HCC) documented in this encounter Additional Health Concerns Infection Onset Date Last Indicated Resolved Time Protective Environment 10/10/2022 10/10/2022 Assessment Noted Time PHQ-9 Depression Total Score: 4 08/12/19 25 3:31 PM CDT documented as of this encounter Care Teams Bottom Cager Relationship Specialty Start Date End Date Ana Red MPAS, P.A.-C. [address] [place] [address] [place] [phone] PCP - General Internal Medicine 12/01/21 [facility] 08/25/21 documented as of this encounter
--- OUTSIDE RECORDS SUMMARY | 2024-10-04 05:54 | XMS_ITS | Encounter Summary ---
Author Organization [facility] Address [address] [place] [address] Care Team Providers Care Last Waxer Name Role Phone Ana Red P.A.-C. Primary Care Pro vider Encounter Details Date Type Department Care Team (Latest Contact Info) Description 09/18/2024 Clinical Communication Ramirez Navarrete [facility] for Transplantation and Clinical Regeneration in [place], [place] [address] [place] [phone] August, Sony Mendez R.N. [address] [place] [phone] Social History Tobacco Use Types Packs/Day Years Used Date Smoking Tobacco: Former Cigarettes 1 - 10/12/2021 Passive Smoke Exposure: Never Smokeless Tobacco: Never Comments:Smoked cigarettes f rom age 18-30 about Alcohol Use Standard Drinks/Week Comments Never 0 (1 standard drink = 0.6 oz pure alcohol) Havent had any alcohol in about a year or so. [facility] Utilities Answer Date Recorded In the [...] week 02/10/2022 How often do you attend [facility] or jew services? Patient declined 02/10/2022 Do you belong [...] Date Recorded PHQ-2 Score 0 08/11/2024 [facility] - [...] a [facility] place to live 09/09/2024 Education Answer Date Recorded What is the highest level of school you have completed or the highest degree you have received? Associate degree: occupational, technical, or vocational program 07/16/2021 Comments No Sex and Gender Information Value Date Recorded Sex Assigned at Female 04/12/2021 7:39 PM SR. MANAGER MARKETING Legal Sex Female 7:53 PM SR. MANAGER MARKETING Gender Identity Female 04/12/2021 7:39 PM SR. MANAGER MARKETING Sexual Orientation Straight 04/12/2021 7: 39 PM SR. MANAGER MARKETING documented as of this encounter Plan of Treatment Upcoming Encounters Date Type Department Care Team (Latest Contact Info) Description 10/05/2024 9:30 AM CDT Appointment Department of Radiology, [facility], in [place], [place] [address] [place] [address] Marisabel Carpenter APRN, C.N.P., D.N.P. 200 [place] [phone] 10/05/2024 12:00 PM CDT Appointment Division of Pulmonary Medicine in [place], [place] [address] [place] [address] Edgar Montgomery M.B.B.S., M.S. [address] [place] [phone] 10/05/2024 2:45 PM CDT Infusion Department of Infusion Therapy in [place], [place] [address] [place] [address] Noreen Ansari P.A.-C., M.S. [address] [place] [phone] 10/10/2024 7:50 AM CDT Lab Department of Laboratory Medicine and Pathology, [facility] in [place], [place] [address] [place] [address] Marisabel Carpenter APRN, C.N.P., D.N.P. [address] [place] [phone] 10/10/2024 8:00 AM CDT Lab Department of Laboratory Medicine and Pathology, [facility] in [place], [place] [address] [place] [address] Marisabel Carpenter APRN, C.N.P., D.N.P. [address] [place] [phone] 10/10/2024 8:30 AM CDT [facility] in [place], [place] [address] [place] [address] Marisabel Carpenter APRN, C.N.P., D.N.P. [address] [place] [phone] 10/10/2024 9:20 AM CDT Appointment Department of Radiology, [facility] in [place], [place] [address] [place] [address] Marisabel Carpenter APRN, C.N.P., D.N.P. [address] [place] [phone] 10/10/2024 9:45 AM CDT [facility] [place] [place] [address] [place] [address] Marisabel Carpenter APRN, C.N.P., D.N.P. [address] [place] [phone] 10/10/2024 1:30 PM CDT Appointment Department of Radiology, [facility] in [place], [place] [address] [place] [address] Marisabel Carpenter APRN, C.N.P., D.N.P. [address] [place] [phone] Discharge Disposition: Home or Self Care 10/10/2024 2:45 PM CDT Appointment Department of Radiology, [facility], in [place], [place] [address] [place] [address] Marisabel Carpenter APRN, C.N.P., D.N.P. [address] [place] [phone] 10/11/2024 8:00 AM CDT Office Visit Ramirez diaz [facility] for Transplantation and Clinical Regeneration in [place], [place] [address] [place] [address] PintMarisabel APRN, C.N.P., D.N.P. [address] [place] [phone] 10/11/2024 11:00 AM CDT Comprehensive Visit [facility] for Transplantation and Clinical Regeneration in [place], [place] [address] [place] [phone] Sree Devlin M.D. [address] [place] [phone] 10/11/2024 1:00 PM CDT Comprehensive Visit Department of Otorhinolaryngology in [place], [place] [address] [place] [phone] Radnal Urbano P.A.-C., M.S. [address] [place] [phone] 10/11/2024 2:00 PM CDT Office Visit [facility] for Transplantation and Clinical Regeneration in [place], [place] [address] [place] [phone] Hiro Murillo P.A.-C. [address] [place] [phone] 10/11/2024 4:00 PM CDT Comprehensive Visit Department of Dermatology in [place], [place] [address] [place] [phone] Parul Martinez M.D. [address] [place] [phone] 10/12/2024 8:00 AM CDT Telemedicine [facility] for Transplantation and Clinical Regeneration in [place], [place] [address] [place] [phone] Ervin Mckeon D.O. [address] [place] [phone] 11/01/2024 2:15 PM CDT Appointment Division of Pulmonary Medicine in [place], [place] [address] [place] [address] Edgar Montgomery M.B.B.S., M.S. [address] [place] [address] documented as of this encounter Visit Diagnoses Not on filedocumented in this encounter Additional Health Concerns Infection Onset Date Last Indicated Resolved Time Protective Environment 10/10/2022 10/10/2022 Assessment Noted Time PHQ-9 Depression Total Score: 4 08/12/19 25 3:31 PM CDT documented as of this encounter Care Teams Last Waxer Relationship Specialty Start Date End Date Ana Red MPAS, P.A.-C. [address] [place] [phone] PCP - General Internal Medicine 12/01/21 [facility] 08/25/21 documented as of this encounter
--- OUTSIDE RECORDS SUMMARY | 2024-10-04 05:54 | XMS_ITS | Encounter Summary ---
Author Organization [facility] Address [address] [place] [address] Care Team Providers Care Turner Splitter Machine Operator Name Role Phone Ana Red P.A.-C. Primary Care Pro vider Encounter Details Date Type Department Care Team (Latest Contact Info) Description 09/22/2024 Clinical Communication Ramirez Navarrete [facility] for Transplantation and Clinical Regeneration in [place], [place] [address] [place] [phone] August, Sony Mendez R.N. [address] [place] [phone] Social History Tobacco Use Types Packs/Day Years [...] week 02/10/2022 How often do you attend [facility] or adventism services? Patient declined 02/10/2022 Do you belong to any clubs o r organizations such as worship groups, unions, fraternal [...] Date Recorded PHQ-2 Score 0 08/11/2024 [facility]at ional Health - Occupational [...] your living situation today? I have a [facility] place to live 09/23/2024 Education Answer Date Recorded What is the highest level of school you have completed or the highest degree you have received? Associate degree: occupational, technical, or vocational program 07/16/2021 Comments No Sex and Gender Information Value Date Recorded Sex Assigned at Female 04/12/2021 7:39 PM LUMBER MOVER Legal Sex Female 7:53 PM LUMBER MOVER Gender Identity Female 04/12/2021 7:39 PM LUMBER MOVER Sexual Orientation Straight 04/12/2021 7: 39 PM LUMBER MOVER documented as of this encounter Miscellaneous Notes * Telephone Encounter - Nola Whipple R.N., C.C.T.C. - 09/22/2024 8:06 AM CDT Labs have already been changed to [place] and Dr. Strickland's visit virtual documented in this encounter Plan of Treatment Upcoming Encounters Date Type Department Care Team (Latest Contact Info) Description 10/05/2024 9:30 AM CDT Appointment Department of Radiology, [facility] in [place], [place] [address] [place] [address] Marisabel Carpenter APRN, C.N.P., D.N.P. [address] [place] [phone] 10/05/2024 12:00 PM CDT Appointment Division of Pulmonary Medicine in [place], [place] [address] [place] [phone] Edgar Montgomery M.B.B.S., M.S. [address] [place] [phone] 10/05/2024 2:45 PM CDT Infusion Department of Infusion Therapy in [place], [place] [address] [place] [phone] Noreen Ansari P.A.-Katrin., M.S. [address] [place] [phone] 10/10/2024 7:50 AM CDT Lab Department of Laboratory Medicine and Pathology, [facility] in [place], [place] [address] [place] [phone] Marisabel Carpenter APRN, C.N.P., D.N.P. [address] [place] [phone] 10/10/2024 8:00 AM CDT Lab Department of Laboratory Medicine and Pathology, [facility] in [place], [place] [address] [place] [address] Marisabel Carpenter APRN, C.N.P., D.N.P. [address] [place] [address] 10/10/2024 8:30 AM CDT Nurse Only Ramirez Nguyen [place] for Transplantation and Clinical Regeneration in [place], [place] [address] [place] [address] Marisabel Carpenter APRN, C.N.PSuma, D.N.P. [address] [place] [phone] 10/10/2024 9:20 AM CDT Appointment Department of Radiology, [place], [place] [address] [place] [address] Marisabel Carpenter APRN, C.N.PSuma, D.N.P. [address] [place] [phone] 10/10/2024 9:45 AM CDT Appointment Department of Laboratory Medicine and Pathology, [facility] in [place], [place] [address] [place] [address] Marisabel Carpenter APRN, C.N.PSuma, D.N.P. [address] [place] [phone] 10/10/2024 1:30 PM CDT Appointment Department of Radiology, [place], [place] [address] [place] [address] Marisabel Carpenter APRN, C.N.P., D.N.P. [address] [place] [phone] Discharge Disposition: Home or Self Care 10/10/2024 2:45 PM CDT Appointment Department of Radiology, [facility], in [place], [place] [address] [place] [address] Marisabel Carpenter APRN C.N.PSuma, D.N.P. [address] [place] [phone] 10/11/2024 8:00 AM CDT Office Visit [facility] for Transplantation and Clinical Regeneration in [place], [place] [address] [place] [address] Marisabel Carpenter APRN, C.N.PSuma, D.N.P. [address] [place] [phone] 10/11/2024 11:00 AM CDT Comprehensive Visit [facility] Transplantation and Clinical Regeneration in [place], [place] [address] [place] [phone] Sree Devlin M.D. [address] [place] [phone] 10/11/2024 1:00 PM CDT Comprehensive Visit Department of Otorhinolaryngology in [place], [place] [address] [place] [phone] Randal Urbano, P.A.-C., M.S. [address] [place] [phone] 10/11/2024 2:00 PM CDT Office Visit [facility] for Transplantation and Clinical Regeneration in [place], [place] [address] [place] [phone] Hiro Murillo P.A.-CSuma [address] [place] [phone] 10/11/2024 4:00 PM CDT Comprehensive Visit Department of Dermatology in [place], [place] [address] [place] [phone] Parul Martinez M.D. [address] [place] [address] [place] [address] 10/12/2024 8:00 AM CDT Telemedicine Ramirez Navarrete [facility] for Transplantation and Clinical Regeneration in [place], [place] [address] [place] [address] Ervin Mckeon D.O. [address] [place] [phone] 11/01/2024 2:15 PM CDT Appointment Division of Pulmonary Medicine in [place], [place] [address] [place] [phone] Edgar Montgomery M.B.B.S., M.S. [address] [place] [phone] documented as of this encounter Visit Diagnoses Not on filedocumented in this encounter Additional Health Concerns Infection Onset Date Last Indicated Resolved Time Protective Environment 10/10/2022 10/10/2022 Assessment Noted Time PHQ-9 Depression Total Score: 4 08/12/19 25 3:31 PM CDT documented as of this encounter Care Teams Turner Splitter Machine Operator Relationship Specialty Start Date End Date Ana Red MPAS, P.A.-C. [address] [place] [phone] PCP - General Internal Medicine 12/01/21 [facility] [place] [facility] 08/25/21 documented as of this encounter
--- OUTSIDE RECORDS SUMMARY | 2024-10-04 05:54 | XMS_ITS | Encounter Summary ---
Author Organization [facility] Address [address] [place] [address] Care Team Providers Care Grain Cleaner And Transfer Operator Name Role Phone Ana Red P.A.-C. Primary Care Pro vider Encounter Details Date Type Department Care Team (Late st Contact Info) Description 09/17/2024 Clinical Communication Department of Infusion Therapy in [place], [place] [address] [place] [phone] Aidee Neves, RSumaN. [address] [place] [phone] Social History Tobacco Use Types Packs/Day Years Used Date Smoking Tobacco: Former Cigarettes 1 - 10/12/2021 Passive Smoke Exposure: Never Smokeless Tobacco: Never Comments:Smoked cigarettes f rom age 18-30 about Alcohol Use Standard Drinks/Week Comments Never 0 (1 standard drink = 0.6 oz pure alcohol) Havent had any alcohol in about a year or so. [facility] Utilities Answer Date Recorded In [...] Date Recorded PHQ-2 Score 0 08/11/2024 [facility] - Occupational [...] your living situation today? I have a [facility] place to live 09/09/2024 Education Answer Date Recorded What is the highest level of school you have completed or the highest degree you have received? Associate degree: occupational, technical, or vocational program 07/16/2021 Comments No Sex and Gender Information Value Date Recorded Sex Assigned at Female 04/12/2021 7:39 PM VALIDATION ANALYST Legal Sex Female 7:53 PM VALIDATION ANALYST Gender Identity Female 04/12/2021 7:39 PM VALIDATION ANALYST Sexual Orientation Straight 04/12/2021 7: 39 PM VALIDATION ANALYST documented as of this encounter Plan of Treatment Upcoming Encounters Date Type Department Care Team (Latest Contact Info) Description 10/05/2024 9:30 AM CDT Appointment Department of Radiology, [facility], in [place], [place] 200 [place] [address] Marisabel Carpenter APRN, C.N.P., D.N.P. 200 [place] [phone] 10/05/2024 12:00 PM CDT Appointment Division of Pulmonary Medicine in [place], [place] [address] [place] [phone] Edgar Montgomery M.B.B.S., M.S. [address] [place] [phone] 10/05/2024 2:45 PM CDT Infusion Department of Infusion Therapy in [place], [place] [address] [place] [address] Noreen Ansari P.A.-C., M.S. [address] [place] [phone] 10/10/2024 7:50 AM CDT Lab Department of Laboratory Medicine and Pathology, [facility] in [place], [place] [address] [place] [address] Marisabel Carpenter APRN, C.N.P., D.N.P. [address] [place] [phone] 10/10/2024 8:00 AM CDT Lab Department of Laboratory Medicine and Pathology, [facility] in [place], [place] [address] [place] [address] Marisabel Carpenter APRN, C.N.P., D.N.P. [address] [place] [phone] 10/10/2024 8:30 AM CDT Nurse Only Ramirez Nguyen [facility] Trans[facility] Clinical Reg[facility] in [place], [place] [address] [place] [address] Marisabel Carpenter APRN, C.N.P., D.N.P. [address] [place] [phone] 10/10/2024 9:20 AM CDT Appointment Department of Radiology, [facility] in [place], [place] [address] [place] [address] Marisabel Carpenter APRN, C.N.P., D.N.P. [address] [place] [phone] 10/10/2024 9:45 AM CDT Appointment Department of Laboratory Medicine and Pathology, [facility] in [place], [place] [address] [place] [address] Marisabel Carpenter APRN, C.N.PSuma, D.N.P. [address] [place] [phone] 10/10/2024 1:30 PM CDT Appointment Department of Radiology, [facility] in [place], [place] [address] [place] [address] Marisabel Carpenter APRN, C.N.P., D.N.P. [address] [place] [phone] Discharge Disposition: Home or Self Care 10/10/2024 2:45 PM CDT Appointment Department of Radiology, [facility] in [place], [place] [address] [place] [address] Marisabel Carpenter APRN, C.N.P., D.N.P. [address] [place] [phone] 10/11/2024 8:00 AM CDT Office Visit Ramirez diaz [facility] for Transplantation and Clinical Regeneration in [place], [place] [address] [place] [address] Marisabel Carpenter APRN, C.N.P., D.N.P. [address] [place] [phone] 10/11/2024 11:00 AM CDT Comprehensive Visit [facility] for Transplantation and Clinical Regeneration in [place], [place] [address] [place] [phone] Sree Devlin M.D. [address] [place] [phone] 10/11/2024 1:00 PM CDT Comprehensive Visit Department of Otorhinolaryngology in [place], [place] [address] [place] [phone] Randal Urbano P.A.-Katrin., M.S. [address] [place] [phone] 10/11/2024 2:00 PM CDT Office Visit [facility] for Transplantation and Clinical Regeneration in [place], [place] [address] [place] [phone] Hiro Murillo P.A.-C. [address] [place] [phone] 10/11/2024 4:00 PM CDT Comprehensive Visit Department of Dermatology in [place], [place] [address] [place] [phone] Parul Martinez M.D. [address] [place] [phone] 10/12/2024 8:[address] [facility] for Transplantation and Clinical Regeneration in [place], [place] [address] [place] [phone] Ervin Mckeon D.O. [address] [place] [phone] 11/01/2024 2:15 PM CDT Appointment Division of Pulmonary Medicine in [place], [place] [address] [place] [phone] dEgar Montgomery M.B.B.S., M.S. [address] [place] [address] documented as of this encounter Visit Diagnoses Not on filedocumented in this encounter Additional Health Concerns Infection Onset Date Last Indicated Resolved Time Protective Environment 10/10/2022 10/10/2022 Assessment Noted Time PHQ-9 Depression Total Score: 4 08/12/19 25 3:31 PM CDT documented as of this encounter Care Teams Grain Cleaner And Transfer Operator Relationship Specialty Start Date End Date Ana Red MPAS, P.A.-C. [address] [place] [phone] PCP - General Internal Medicine 12/01/21 [facility] [place] [facility] 08/25/21 documented as of this encounter
--- OUTSIDE RECORDS SUMMARY | 2024-10-04 05:54 | XMS_ITS | Encounter Summary ---
Author Organization [facility] Address [address] [place] [address] Care Team Providers Care Maintenance Team Member Name Role Phone Ana Red P.A.-C. Primary Care Pro vider Encounter Details Date Type Department Care Team (Late st Contact Info) Description 09/17/2024 Clinical Communication Department of Infusion Therapy in [place], [place] [address] [place] [phone] Aidee Neves, RSumaN. [address] [place] [phone] Social History Tobacco Use Types Packs/Day Years Used Date Smoking Tobacco: Former Cigarettes 1 - 10/12/2021 Passive Smoke Exposure: Never Smokeless Tobacco: Never Comments:Smoked cigarettes f rom age 18-30 about Alcohol Use Standard Drinks/Week Comments Never 0 (1 standard drink = 0.6 oz pure alcohol) Havent had any alcohol in about a year or so. [facility] Utilities Answer Date Recorded In the past [...] Answer Date Recorded PHQ-2 Score 0 08/11/2024 [facility] of Occupat ional Health - Occupational [...] your living situation today? I have a [facility] place to live 09/09/2024 Education Answer Date Recorded What is the highest level of school you have completed or the highest degree you have received? Associate degree: occupational, technical, or vocational program 07/16/2021 Comments No Sex and Gender Information Value Date Recorded Sex Assigned at Female 04/12/2021 7:39 PM SPECIAL FORCES MEDICAL SERGEANT Legal Sex Female 7:53 PM SPECIAL FORCES MEDICAL SERGEANT Gender Identity Female 04/12/2021 7:39 PM SPECIAL FORCES MEDICAL SERGEANT Sexual Orientation Straight 04/12/2021 7: 39 PM SPECIAL FORCES MEDICAL SERGEANT documented as of this encounter Plan of Treatment Upcoming Encounters Date Type Department Care Team (Latest Contact Info) Description 10/05/2024 9:30 AM CDT Appointment Department of Radiology, [facility], in [place], [place] 200 [place] [address] Marisabel Carpenter APRN, C.N.P., D.N.P. 200 [place] [phone] 10/05/2024 12:00 PM CDT Appointment Division of Pulmonary Medicine in [place], [place] [address] [place] [phone] Edgar Montgomery M.B.B.S., M.S. [address] [place] [phone] 10/05/2024 2:45 PM CDT Infusion Department of Infusion Therapy in [place], [place] [address] [place] [address] Noreen Ansari P.A.-C., M.S. [address] [place] [phone] 10/10/2024 7:50 AM CDT Lab Department of Laboratory Medicine and Pathology, [facility] in [place], [place] [address] [place] [address] Marisabel Carpenter APRN, C.N.P., D.N.P. [address] [place] [phone] 10/10/2024 8:00 AM CDT Lab Department of Laboratory Medicine and Pathology, [facility] in [place], [place] [address] [place] [address] Marisabel Carpenter APRN, C.N.P., D.N.P. [address] [place] [phone] 10/10/2024 8:30 AM CDT Nurse Only Ramirez Nguyen [place] for Transplantation and Clinical Regeneration in [place], [place] [address] [place] [address] Marisabel Carpenter APRN, C.N.P., D.N.P. [address] [place] [phone] 10/10/2024 9:20 AM CDT Appointment Department of Radiology, [facility] in [place], [place] [address] [place] [address] Marisabel Carpenter APRN, C.N.P., D.N.P. [address] [place] [phone] 10/10/2024 9:45 AM CDT Appointment Department of Laboratory Medicine and Pathology, [facility] in [place], [place] [address] [place] [address] Marisabel Carpenter APRN, C.N.PSuma, D.N.P. [address] [place] [phone] 10/10/2024 1:30 PM CDT Appointment Department of Radiology, [facility] in [place], [place] [address] [place] [address] Marisabel Carpenter APRN, C.N.P., D.N.P. [address] [place] [phone] Discharge Disposition: Home or Self Care 10/10/2024 2:45 PM CDT Appointment Department of Radiology, [facility] in [place], [place] [address] [place] [address] Marisabel Carpenter APRN, C.N.P., D.N.P. [address] [place] [phone] 10/11/2024 8:00 AM CDT Office Visit Ramirez diaz [facility] for Transplantation and Clinical Regeneration in [place], [place] [address] [place] [address] Marisabel Carpenter APRN, C.N.P., D.N.P. [address] [place] [phone] 10/11/2024 11:00 AM CDT Comprehensive Visit [facility] for Transplantation and Clinical Regeneration in [place], [place] [address] [place] [phone] Sree Devlin M.D. [address] [place] [phone] 10/11/2024 1:00 PM CDT Comprehensive Visit Department of Otorhinolaryngology in [place], [place] [address] [place] [phone] Randal Urbano P.A.-Katrin., M.S. [address] [place] [phone] 10/11/2024 2:00 PM CDT Office Visit [facility] for Transplantation and Clinical Regeneration in [place], [place] [address] [place] [phone] Hiro Murillo P.A.-C. [address] [place] [phone] 10/11/2024 4:00 PM CDT Comprehensive Visit Department of Dermatology in [place], [place] [address] [place] [phone] Parul Martinez M.D. [address] [place] [phone] 10/12/2024 8:00 AM CDT Telemedicine [facility] for Transplantation and Clinical Regeneration in [place], [place] [address] [place] [phone] Ervin Mckeon D.O. [address] [place] [phone] 11/01/2024 2:15 PM CDT Appointment Division of Pulmonary Medicine in [place], [place] [address] [place] [phone] Edgar Montgomery M.B.B.S., M.S. [address] [place] [address] documented as of this encounter Visit Diagnoses Not on filedocumented in this encounter Additional Health Concerns Infection Onset Date Last Indicated Resolved Time Protective Environment 10/10/2022 10/10/2022 Assessment Noted Time PHQ-9 Depression Total Score: 4 08/12/19 25 3:31 PM CDT documented as of this encounter Care Teams Maintenance Team Member Relationship Specialty Start Date End Date Ana Red MPAS, P.A.-C. [address] [place] [phone] PCP - General Internal Medicine 12/01/21 [facility] [place] [facility] 08/25/21 documented as of this encounter
--- OUTSIDE RECORDS SUMMARY | 2024-10-04 05:54 | XMS_ITS | Encounter Summary ---
Author Organization [facility] Address [address] [place] [address] Care Team Providers Care Director Of Strategic Alliances Name Role Phone Ana Red P.A.-C. Primary Care Pro vider Encounter Details Date Type Department Care Team (Late st Contact Info) Description 09/17/2024 Clinical Communication Department of Infusion Therapy in [place], [place] [address] [place] [phone] Nola Coto, R.N. Social History Tobacco Use Types Packs/Day [...] has e electric, gas, oil, or water [employer] threatened to shut off services in your [...] Answer Date Recorded PHQ-2 Score 0 08/11/2024 [facility] of Occupat ional Health [...] Sex Assigned at Female 04/12/2021 7:39 PM TELESERVICES REPRESENTATIVE Legal Sex Female 7:53 PM TELESERVICES REPRESENTATIVE Gender Identity Female 04/12/2021 7:39 PM TELESERVICES REPRESENTATIVE Sexual Orientation Straight 04/12/2021 7: 39 PM TELESERVICES REPRESENTATIVE documented as of this encounter Plan of Treatment Upcoming Encounters Date Type Department Care Team (Latest Contact Info) Description 10/05/2024 9:30 AM CDT Appointment Department of Radiology, [facility], in [place], [place] 200 [place] [address] Marisabel Carpenter APRN, C.N.P., D.N.P. 200 [place] [address] 10/05/2024 12:00 PM CDT Appointment Division of Pulmonary Medicine in [place], [place] [address] [place] [address] Edgar Montgomery M.B.B.S., M.S. [address] [place] [phone] 10/05/2024 2:45 PM CDT Infusion Department of Infusion Therapy in [place], [place] [address] [place] [address] Noreen Ansari P.A.-C., M.S. [address] [place] [phone] 10/10/2024 7:50 AM CDT Lab Department of Laboratory Medicine and Pathology, [facility] in [place], [place] [address] [place] [address] Marisabel Carpenter APRN, C.N.P., D.N.P. [address] [place] [phone] 10/10/2024 8:00 AM CDT Lab Department of Laboratory Medicine and Pathology, [facility] in [place], [place] [address] [place] [address] Marisabel Carpenter APRN, C.N.P., D.N.P. [address] [place] [phone] 10/10/2024 8:30 AM CDT Nurse Only [facility] in [place], [place] [address] [place] [address] Marisabel Carpenter APRN, C.N.P., D.N.P. [address] [place] [phone] 10/10/2024 9:20 AM CDT Appointment Department of Radiology, [facility] in [place], [place] [address] [place] [address] Marisabel Carpenter APRN, C.N.P., D.N.P. [address] [place] [phone] 10/10/2024 9:45 AM CDT Appointment Department of Laboratory Medicine and Pathology, [place], [place] [address] [place] [address] Marisabel Carpenter APRN, C.N.P., D.N.P. [address] [place] [phone] 10/10/2024 1:30 PM CDT Appointment Department of Radiology, [facility] in [place], [place] [address] [place] [address] Marisabel Carpenter APRN, C.N.P., D.N.P. [address] [place] [phone] Discharge Disposition: Home or Self Care 10/10/2024 2:45 PM CDT Appointment Department of Radiology, [facility], in [place], [place] [address] [place] [address] Marisabel Carpenter APRN, C.N.P., D.N.P. [address] [place] [phone] 10/11/2024 8:00 AM CDT Office Visit Ramirez diaz [facility] for Transplantation and Clinical Regeneration in [place], [place] [address] [place] [address] Marisabel Carpenter APRN, C.N.P., D.N.P. [address] [place] [phone] 10/11/2024 11:00 AM CDT Comprehensive [facility] in [place], [place] [address] [place] [address] Sree Devlin M.D. [address] [place] [phone] 10/11/2024 1:00 PM CDT Comprehensive Visit Department of Otorhinolaryngology in [place], [place] [address] [place] [address] Randal Urbano P.A.-C., M.S. [address] [place] [phone] 10/11/2024 2:00 PM CDT Office Visit [facility] Transplantation and Clinical Regeneration in [place], [place] [address] [place] [address] Hiro Murillo P.A.-C. [address] [place] [phone] 10/11/2024 4:00 PM CDT Comprehensive Visit Department of Dermatology in [place], [place] [address] [place] [phone] Parul Martinez M.D. [address] [place] [phone] 10/12/2024 8:00 AM CDT Telemedicine [facility] Transplantation and Clinical Regeneration in [place], [place] [address] [place] [address] Ervin Mckeon D.O. [address] [place] [phone] 11/01/2024 2:15 PM CDT Appointment Division of Pulmonary Medicine in [place], [place] [address] [place] [address] Edgar Montgomery M.B.B.S., M.S. [address] [place] [address] documented as of this encounter Visit Diagnoses Not on filedocumented in this encounter Additional Health Concerns Infection Onset Date Last Indicated Resolved Time Protective Environment 10/10/2022 10/10/2022 Assessment Noted Time PHQ-9 Depression Total Score: 4 08/12/19 25 3:31 PM CDT documented as of this encounter Care Teams Director Of Strategic Alliances Relationship Specialty Start Date End Date Ana Red MPAS, P.A.-C. [address] [place] [address] PCP - General Internal Medicine 12/01/21 [facility] [place] [facility] 08/25/21 documented as of this encounter
--- OUTSIDE RECORDS SUMMARY | 2024-10-04 05:54 | XMS_ITS | Encounter Summary ---
Author Organization [facility] Address [address] [place] [address] Care Team Providers Care Grinding Operator Name Role Phone Ana Red P.A.-C. Primary Care Pro vider Reason for Referral * Outpatient (Routine) - Closed Specialty Diagnoses / Procedures Referred By Meir lara Referred To Contact Diagnoses Transplant Liver (HCC) Rejection Liver Transplant (HCC) Procedures US Liver Transplant Biopsy SD BX NDL LIVER PERC SD US GUIDE PLC NDL Kenny Purdy M.D. [address] [place] [phone] Phone: tel: fax: [facility] Referral ID Status Reason Start Date Expiration Date Visits Re quested Visits Authorized [id number] Closed 09/20/2024 12/21/2025 1 1 * Outpatient (Routine) - Authorized Specialty Diagnoses / Procedures Referred By Meir lara Referred To Contact Diagnoses Transplant Liver (HCC) Procedures Perform central print line feeder: Site care Noreen Ansari P.A.-C., M.S. [address] [place] [phone] Phone: tel: fax: [facility] [place] [facility] Referral ID Status Reason Start Date Expiration Date V isits Requested Visits Authorized [id number] Authorized 09/20/2024 12/21/2025 1 1 Encounter Details Date Type Department Care Team (Late st Contact Info) Description 09/20/2024 Orders Only Ramirez diaz [facility] in [place], [place] [address] [place] [address] August, Sony Mendez R.N. [address] [place] [address] Transplant Liver (HCC) (Primary Dx); Rejection Liver [...] or so. [facility] Utilities Answer Date Recorded In the past 12 months has e [employer], gas, oil, or water [employer] threatened to shut off services in [...] Answer Date Recorded PHQ-2 Score 0 08/11/2024 [facility] Occupat ional Health - [...] your living situation today? I have a [facility] place to live 09/23/2024 Education Answer Date Recorded What is the highest level of school you have completed or the highest degree you have received? Associate degree: occupational, technical, or vocational program 07/16/2021 Comments No Sex and Gender Information Value Date Recorded Sex Assigned at Female 04/12/2021 7:39 PM SOIL EXPERT Legal Sex Female 7:53 PM SOIL EXPERT Gender Identity Female 04/12/2021 7:39 PM SOIL EXPERT Sexual Orientation Straight 04/12/2021 7: 39 PM SOIL EXPERT documented as of this encounter Plan of Treatment Upcoming Encounters Date Type Department Care Team (Latest Contact Info) Description 10/05/2024 9:30 AM CDT Appointment Department of Radiology, [facility], in [place], [place] [address] [place] [address] Marisabel Carpenter APRN, C.N.P., D.N.P. [address] [place] [phone] 10/05/2024 12:00 PM CDT Appointment Division of Pulmonary Medicine in [place], [place] [address] [place] [phone] Edgar Montgomery M.B.B.S., M.S. [address] [place] [phone] 10/05/2024 2:45 PM CDT Infusion Department of Infusion Therapy in [place], [place] [address] [place] [phone] Noreen Ansari P.A.-C., M.S. [address] [place] [phone] 10/10/2024 7:50 AM CDT Lab Department of Laboratory Medicine and Pathology, [facility] in [place], [place] [address] [place] [address] Marisabel Carpenter APRN, C.N.P., D.N.P. [address] [place] [phone] 10/10/2024 8:00 AM CDT Lab Department of Laboratory Medicine and Pathology, [facility] in [place], [place] [address] [place] [address] Marisabel Carpenter APRN, C.N.P., D.N.P. [address] [place] [phone] 10/10/2024 8:30 AM CDT Nurse Only Ramirez Nguyen [facility] in [place], [place] [address] [place] [address] Marisabel Carpenter APRN, C.N.P., D.N.P. [address] [place] [phone] 10/10/2024 9:20 AM CDT Appointment Department of Radiology, [facility] in [place], [place] [address] [place] [address] Marisabel Carpenter APRN, C.N.P., D.N.P. [address] [place] [phone] 10/10/2024 9:45 AM CDT Appointment Department of Laboratory Medicine and Pathology, [facility] in [place], [place] [address] [place] [address] Marisabel Carpenter APRN, C.N.PSuma, D.N.P. [address] [place] [phone] 10/10/2024 1:30 PM CDT Appointment Department of Radiology, [facility] in [place], [place] [address] [place] [address] Marisabel Carpenter APRN, C.N.PSuma, D.N.P. [address] [place] [phone] Discharge Disposition: Home or Self Care 10/10/2024 2:45 PM CDT Appointment Department of Radiology, [facility] in [place], [place] [address] [place] [address] Marisabel Carpenter APRN, Katrin.N.PSuma, D.N.P. [address] [place] [phone] 10/11/2024 8:00 AM CDT [facility] [place], [place] [address] [place] [phone] Marisabel Carpenter APRN, C.N.P., D.N.P. [address] [place] [phone] 10/11/2024 11:00 AM CDT Comprehensive Visit [facility] for Transplantation and Clinical Regeneration in [place], [place] [address] [place] [address] Sree Devlin M.D. [address] [place] [phone] 10/11/2024 1:00 PM CDT Comprehensive Visit Department of Otorhinolaryngology in [place], [place] [address] [place], [place] [phone] Randal Urbano P.A.-C., M.S. [address] [place] [phone] 10/11/2024 2:00 PM CDT Office Visit [facility] for Transplantation and Clinical Regeneration in [place], [place] [address] [place] [phone] Hiro Murillo P.A.-C. [address] [place] [phone] 10/11/2024 4:00 PM CDT Comprehensive Visit Department of Dermatology in [address] [address] Parul Martinez M.D. [address] [place] [phone] 10/12/2024 8:00 AM CDT Telemedicine [facility] [place] Trans[facility] and Clinical Regeneration in [address] [phone] Ervin Mckeon D.O. [address] [place] [phone] 11/01/2024 2:15 PM CDT Appointment Division of Pulmonary Medicine in [address] [phone] Edgar Montgomery M.B.B.S., M.S. [address] [place] [phone] Scheduled Orders Name Type Priority Associated Diagnoses Orde r Schedule Perform central print line feeder: Site care Procedures Routine Transplant Liver (HCC) Expected: 09/20/2024, Expires: 12/21/2025 documented as of this encounter Results * US Liver Transplant Biopsy (09/21/2024 9:52 [...] Ultrasound-guided right allograft liver parenchyma biopsy. EP Kenny PERALES PROCEDURE S Final Result documented in this encounter Visit Diagnoses Diagnosis Transplant Liver (HCC)- Primary Rejection Liver Transplant (HCC) Transplant Liver (HCC) Rejection Liver Transplant (HCC) documented in this encounter Additional Health Concerns Infection Onset Date Last Indicated Resolved Time Protective Environment 10/10/2022 10/10/2022 Assessment Noted Time PHQ-9 Depression Total Score: 4 08/12/19 25 3:31 PM CDT documented as of this encounter Care Teams Grinding Operator Relationship Specialty Start Date End Date Ana Red MPAS, P.A.-C. [address] [place] [phone] PCP - General Internal Medicine 12/01/21 [facility] [place] [facility] 08/25/21 documented as of this encounter
--- OUTSIDE RECORDS SUMMARY | 2024-10-04 05:54 | XMS_ITS | Encounter Summary ---
Author Organization [facility] Address [address] [place] [address] Care Team Providers Care Operations Expert Name Role Phone Ana Red P.A.-C. Primary Care Pro vider Encounter Details Date Type Department Care Team (Latest Contact Info) Description 09/19/2024 Clinical Communication Ramirez Navarrete [facility] Trans[facility] Clinical Regeneration in [place], [place] [address] [place] [phone] August, Sony Mendez R.N. [address] [place] [phone] Social History Tobacco Use Types Packs/Day Years Used Date Smoking Tobacco: Former Cigarettes 1 - 10/12/2021 Passive Smoke Exposure: Never Smokeless Tobacco: Never Comments:Smoked cigarettes f rom age 18-30 about Alcohol Use Standard Drinks/Week Comments Never 0 (1 standard drink = 0.6 oz pure alcohol) Havent had any alcohol in about a year or so. [facility] Utilities Answer Date Recorded In the [...] week 02/10/2022 How often do you attend [facility] or sikh services? Patient declined 02/10/2022 Do you belong to any clubs o r organizations such as moravian groups, unions, fraternal [...] living situation today? I have a [facility] place to live 09/23/2024 Education Answer Date Recorded What is the highest level of school you have completed or the highest degree you have received? Associate degree: occupational, technical, or vocational program 07/16/2021 Comments No Sex and Gender Information Value Date Recorded Sex Assigned at Female 04/12/2021 7:39 PM PRESIDENT [employer] CEO [employer] Legal Sex Female 7:53 PM [employer]IDENT [employer] Gender Identity Female 04/12/2021 7:39 PM PRESIDENT [employer] CEO [employer] Sexual Orientation Straight 04/12/2021 7: 39 PM PRESIDENT [employer] CEO [employer] documented as of this encounter Plan of Treatment Upcoming Encounters Date Type Department Care Team (Latest Contact Info) Description 10/05/2024 9:30 AM CDT Appointment Department of Radiology, [facility], in [place], [place] [address] [place] [address] Marisabel Carpenter APRN, C.N.P., D.N.P. 200 [place] [phone] 10/05/2024 12:00 PM CDT Appointment Division of Pulmonary Medicine in [place], [place] [address] [place] [address] Edgar Montgomery M.B.B.S., M.S. [address] [place] [phone] 10/05/2024 2:45 PM CDT Infusion Department of Infusion Therapy in [place], [place] [address] [place] [address] Noreen Ansari P.A.-C., M.S. [address] [place] [phone] 10/10/2024 7:50 AM CDT Lab Department of Laboratory Medicine and Pathology, [facility] in [place], [place] [address] [place] [address] Marisabel Carpenter APRN, C.N.P., D.N.P. [address] [place] [phone] 10/10/2024 8:00 AM CDT Lab Department of Laboratory Medicine and Pathology, [facility] in [place], [place] [address] [place] [address] Marisabel Carpenter APRN, C.N.P., D.N.P. [address] [place] [phone] 10/10/2024 8:30 AM CDT Nurse Only [facility] in [place], [place] [address] [place] [address] Marisabel Carpenter APRN, C.N.P., D.N.P. [address] [place] [phone] 10/10/2024 9:20 AM CDT Appointment Department of Radiology, [facility] in [place], [place] [address] [place] [address] Marisabel Carpenter APRN, C.N.P., D.N.P. [address] [place] [phone] 10/10/2024 9:45 AM CDT [facility] [place], [place] [address] [place] [address] Marisabel Carpenter APRN, C.N.P., D.N.P. [address] [place] [phone] 10/10/2024 1:30 PM CDT Appointment Department of Radiology, [facility] in [place], [place] [address] [place] [address] Marisabel Carpenter APRN, C.N.P., D.N.P. [address] [place] [phone] Discharge Disposition: Home or Self Care 10/10/2024 2:45 PM CDT Appointment Department of Radiology, [facility], in [place], [place] [address] [place] [address] Marisabel Carpenter APRN, C.N.P., D.N.P. [address] [place] [phone] 10/11/2024 8:00 AM CDT Office Visit Ramirez diaz [facility] for Transplantation and Clinical Regeneration in [place], [place] [address] [place] [address] PintMarisabel APRN, C.N.P., D.N.P. [address] [place] [phone] 10/11/2024 11:00 AM CDT Comprehensive Visit [facility] for Transplantation and Clinical Regeneration in [place], [place] [address] [place] [phone] Sree Devlin M.D. [address] [place] [phone] 10/11/2024 1:00 PM CDT Comprehensive Visit Department of Otorhinolaryngology in [place], [place] [address] [place] [phone] Randal Urbano P.A.-C., M.S. [address] [place] [phone] 10/11/2024 2:00 PM CDT Office Visit [facility]plantation [facility] Clinical Regeneration in [place], [place] [address] [place] [phone] Hiro Murillo P.A.-C. [address] [place] [phone] 10/11/2024 4:00 PM CDT Comprehensive Visit Department of Dermatology in [place], [place] [address] [place] [phone] Parul Martinez M.D. [address] [place] [phone] 10/12/2024 8:00 AM CDT Telemedicine [facility] for Transplantation and Clinical Regeneration in [place], [place] [address] [place] [phone] Ervin Mckeon D.O. [address] [place] [phone] 11/01/2024 2:15 PM CDT Appointment Division of Pulmonary Medicine in [place], [place] [address] [place] [address] Edgar Montgomery M.B.B.S., M.S. [address] [place] [address] documented as of this encounter Visit Diagnoses Not on filedocumented in this encounter Additional Health Concerns Infection Onset Date Last Indicated Resolved Time Protective Environment 10/10/2022 10/10/2022 Assessment Noted Time PHQ-9 Depression Total Score: 4 08/12/19 25 3:31 PM CDT documented as of this encounter Care Teams Operations Expert Relationship Specialty Start Date End Date Ana Red MPAS, P.A.-C. [address] [place] [phone] PCP - General Internal Medicine 12/01/21 [facility] [place] [facility] 08/25/21 documented as of this encounter
--- OUTSIDE RECORDS SUMMARY | 2024-10-04 05:54 | XMS_ITS | Encounter Summary ---
Author Organization [facility] Address [address] [place] [address] Care Team Providers Care Social Worker Aide Name Role Phone Ana Red P.A.-C. Primary Care Pro vider Reason for Visit * Reason Onset Date Comments Phone Contact 09/18/2024 Encounter Details Date Type Department Care Team (Latest Contact Info) Description 09/18/2024 Clinical Communication Ramirez Navarrete [facility] for Transplantation and Clinical Regeneration in [place], [place] [address] [place] [phone] August, Sony Mendez R.N. [address] [place] [phone] Phone Contact Social History Tobacco Use Types Packs/Day Years Used Date Smoking Tobacco: Former Cigarettes 1 - 10/12/2021 Passive Smoke Exposure: Never Smokeless Tobacco: Never Comments:Smoked cigarettes f rom age 18-30 about Alcohol Use Standard Drinks/Week Comments Never 0 (1 standard drink = 0.6 oz pure alcohol) Havent had any alcohol in about a year or so. [facility] Utilities Answer Date Recorded In the past 12 months has e [employer], gas, oil, or water [employer] threatened to shut off services in your [...] Answer Date Recorded PHQ-2 Score 0 08/11/2024 [facility] of Occupat ional Health - Occupational Stress [...] your living situation today? I have a [facility] place to live 09/09/2024 Education Answer Date Recorded What is the highest level of school you have completed or the highest degree you have received? Associate degree: occupational, technical, or vocational program 07/16/2021 Comments No Sex and Gender Information Value Date Recorded Sex Assigned at Female 04/12/2021 7:39 PM STRUCTURAL MANAGER Legal Sex Female 7:53 PM STRUCTURAL MANAGER Gender Identity Female 04/12/2021 7:39 PM STRUCTURAL MANAGER Sexual Orientation Straight 04/12/2021 7: 39 PM STRUCTURAL MANAGER documented as of this encounter Plan of Treatment Upcoming Encounters Date Type Department Care Team (Latest Contact Info) Description 10/05/2024 9:30 AM CDT Appointment Department of Radiology, [facility], in [place], [place] [address] [place] [address] Marisabel Carpenter APRN, C.N.P., D.N.P. [address] [place] [address] 10/05/2024 12:00 PM CDT Appointment Division of Pulmonary Medicine in [place], [place] [address] [place] [address] Edgar Montgomery M.B.B.S., M.S. [address] [place] [phone] 10/05/2024 2:45 PM CDT Infusion Department of Infusion Therapy in [place], [place] [address] [place] [address] Noreen Ansari P.A.-C., M.S. [address] [place] [phone] 10/10/2024 7:50 AM CDT Lab Department of Laboratory Medicine and Pathology, [facility] in [place], [place] [address] [place] [address] Marisabel Carpenter APRN, C.N.Frances, D.N.P. [address] [place] [phone] 10/10/2024 8:00 AM CDT Lab Department of Laboratory Medicine and Pathology, [facility] in [place], [place] [address] [place] [address] Marisabel Carpenter APRN, C.N.PSuma, D.N.P. [address] [place] [phone] 10/10/2024 8:30 AM CDT Nurse Only [facility] in [place], [place] [address] [place] [address] Marisabel Carpenter APRN, C.N.P., D.N.P. [address] [place] [phone] 10/10/2024 9:20 AM CDT Appointment Department of Radiology, [facility] in [place], [place] [address] [place] [address] Marisabel Carpenter APRN, C.N.P., D.N.P. [address] [place] [phone] 10/10/2024 9:45 AM CDT Appointment Department [place] [address] [place] [address] Marisabel Carpenter APRN, Katrin.N.PSuma, D.N.P. [address] [place] [phone] 10/10/2024 1:30 PM CDT [facility] [place], [place] [address] [place] [address] Marisabel Carpenter APRN, C.N.P., D.N.P. [address] [place] [phone] Discharge Disposition: Home or Self Care 10/10/2024 2:45 PM CDT Appointment Department of Radiology, [facility] in [place], [place] [address] [place] [address] Marisabel Carpenter APRN, C.N.P., D.N.P. [address] [place] [phone] 10/11/2024 8:00 AM CDT Office Visit [facility] in [place], [place] [address] [place] [address] Marisabel Carpenter APRN, C.NDayne, D.N.P. [address] [place] [phone] 10/11/2024 11:00 AM CDT Comprehensive Visit [facility] for Transplantation and Clinical Regeneration in [place], [place] [address] [place] [phone] Sree Devlin M.D. [address] [place] [phone] 10/11/2024 1:00 PM CDT Comprehensive Visit Department of Otorhinolaryngology in [place], [place] [address] [place] [phone] Randla Urbano P.A.-C., M.S. [address] [place] [phone] 10/11/2024 2:00 PM CDT Office Visit [facility] for Transplantation and Clinical Regeneration in [place], [place] [address] [place] [phone] Hiro Murillo P.A.-C. [address] [place] [phone] 10/11/2024 4:00 PM CDT Comprehensive Visit Department of Dermatology in [place], [place] [address] [place] [phone] Parul Martinez M.D. [address] [place] [phone] 10/12/2024 8:00 AM CDT Telemedicine [facility] for Transplantation and Clinical Regeneration in [place], [place] [address] [place] [phone] Ervin Mckeon D.O. [address] [place] [phone] 11/01/2024 2:15 PM CDT Appointment Division of Pulmonary Medicine in [place], [place] [address] [place] [address] Edgar Montgmoery M.B.B.S., M.S. [address] [place] [address] documented as of this encounter Visit Diagnoses Not on filedocumented in this encounter Additional Health Concerns Infection Onset Date Last Indicated Resolved Time Protective Environment 10/10/2022 10/10/2022 Assessment Noted Time PHQ-9 Depression Total Score: 4 08/12/19 25 3:31 PM CDT documented as of this encounter Care Teams Social Worker Aide Relationship Specialty Start Date End Date Ana Red MPAS, P.A.-C. [address] [place] [address] [place] [phone] PCP - General Internal Medicine 12/01/21 [facility] [place] [facility] 08/25/21 documented as of this encounter
--- OUTSIDE RECORDS SUMMARY | 2024-10-04 05:54 | XMS_ITS | Encounter Summary ---
Author Organization [facility] Address [address] [place] [address] Care Team Providers Care Solution Specialist Name Role Phone Ana Red P.A.-C. Primary Care Pro vider Encounter Details Date Type Department Care Team (Latest Contact Info) Description 09/19/2024 Orders Only Ramirez diaz [facility] in [place], [place] [address] [place] [phone] AugustSony R.N. [address] [place] [phone] Transplant Liver (HCC) (Primary Dx); Rejection Liver Transplant (HCC); Medication Therapy Skilled Nursing Not 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 Social History Tobacco Use Types Packs/Day Years Used Date Smoking Tobacco: Former Cigarettes 1 - 10/12/2021 Passive Smoke Exposure: Never Smokeless Tobacco: Never Comments:Smoked cigarettes f rom age 18-30 about Alcohol Use Standard Drinks/Week Comments Never 0 (1 standard drink = 0.6 oz pure alcohol) Havent had any alcohol in about a year or so. [facility] Utilities Answer Date Recorded In the [...] Answer Date Recorded PHQ-2 Score 0 08/11/2024 [facility] of Occupat ional Health - Occupational Stress [...] [facility] 09/23/2024 Education Answer Date Recorded What is the highest level of school you have completed or the highest degree you have received? Associate degree: occupational, technical, or vocational program 07/16/2021 Comments No Sex and Gender Information Value Date Recorded Sex Assigned at Female 04/12/2021 7:39 PM FOREST FIRE OFFICER Legal Sex Female 7:53 PM FOREST FIRE OFFICER Gender Identity Female 04/12/2021 7:39 PM FOREST FIRE OFFICER Sexual Orientation Straight 04/12/2021 7: 39 PM FOREST FIRE OFFICER documented as of this encounter Plan of Treatment Upcoming Encounters Date Type Department Care Team (Latest Contact Info) Description 10/05/2024 9:30 AM CDT Appointment Department of Radiology, [facility], in [place], [place] [address] [place] [address] Marisabel Carpenter APRN, C.N.P., D.N.P. [address] [place] [phone] 10/05/2024 12:00 PM CDT Appointment Division of Pulmonary Medicine in [place], [place] [address] [place] [address] Edgar Montgomery M.B.B.S., M.S. [address] [place] [phone] 10/05/2024 2:45 PM CDT Infusion Department of Infusion Therapy in [place], [place] [address] [place] [address] Noreen Ansari P.A.-C., M.S. [address] [place] [phone] 10/10/2024 7:50 AM CDT Lab Department of Laboratory Medicine and Pathology, [facility] in [place], [place] [address] [place] [address] Marisabel Carpenter APRN, C.N.P., D.N.P. [address] [place] [phone] 10/10/2024 8:00 AM CDT Lab Department of Laboratory Medicine and Pathology, [facility] in [place], [place] [address] [place] [address] Marisabel Carpenter APRN, C.N.P., D.N.P. [address] [place] [phone] 10/10/2024 8:30 AM CDT Nurse Only [facility] in [place], [place] [address] [place] [address] Marisabel Carpenter APRN, C.N.P., D.N.P. [address] [place] [phone] 10/10/2024 9:20 AM CDT Appointment Department of Radiology, [facility] in [place], [place] [address] [place] [address] Marisabel Carpenter APRN, C.N.P., D.N.P. [address] [place] [phone] 10/10/2024 9:45 AM CDT Appointment Department of Laboratory Medicine and Pathology, [facility] in [place], [place] [address] [place] [phone] Marisabel Carpenter APRN, Katrin.N.PSuma, D.N.P. [address] [place] [phone] 10/10/2024 1:30 PM CDT Appointment Department of Radiology, [facility] in [place], [place] [address] [place] [address] Marisabel Carpenter APRN, C.N.P., D.N.P. [address] [place] [phone] Discharge Disposition: Home or Self Care 10/10/2024 2:45 PM CDT Appointment Department of Radiology, [facility] in [place], [place] [address] [place] [address] Marisabel Carpenter APRN, C.N.P., D.N.P. [address] [place] [phone] 10/11/2024 8:00 AM CDT [facility] in [place], [place] [address] [place] [phone] Marisabel Carpenter APRN, C.NDayne, D.N.P. [address] [place] [phone] 10/11/2024 11:00 AM CDT Comprehensive Visit [facility] for Trans[facility] and Clinical Regeneration in [place], [place] [address] [place] [phone] Sree Devlin M.D. [address] [place] [phone] 10/11/2024 1:00 PM CDT Comprehensive Visit Department of Otorhinolaryngology in [place], [place] [address] [place] [phone] Randal Urbano P.A.-Katrin., M.S. [address] [place] [phone] 10/11/2024 2:00 PM CDT Office Visit [facility] in [place], [place] [address] [place] [phone] Hiro Murillo P.A.-C. [address] [place] [phone] 10/11/2024 4:00 PM CDT Comprehensive Visit Department of Dermatology in [place], [place] [address] [place] [phone] Parul Martinez M.D. [address] [place] [phone] 10/12/2024 8:00 AM CDT Telemedicine [facility] Clinical Regeneration in [place], [place] [address] [place] [phone] Ervin Mckeon D.O. [address] [place] [address] 11/01/2024 2:15 PM CDT Appointment Division of Pulmonary Medicine in [place], [place] [address] [place] [address] Edgar Montgomery M.B.B.S., M.S. [address] [place] [phone] documented as of this encounter Visit Diagnoses Diagnosis Transplant Liver (HCC)- Primary Rejection Liver Transplant (HCC) Medication Therapy Velocity Shooter Not 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 documented in this encounter Additional Health Concerns Infection Onset Date Last Indicated Resolved Time Protective Environment 10/10/2022 10/10/2022 Assessment Noted Time PHQ-9 Depression Total Score: 4 08/12/19 25 3:31 PM CDT documented as of this encounter Care Teams Solution Specialist Relationship Specialty Start Date End Date Ana Red MPAS, P.A.-C. [address] [place] [phone] PCP - General Internal Medicine 12/01/21 [facility] [place] [facility] 08/25/21 documented as of this encounter
--- OUTSIDE RECORDS SUMMARY | 2024-10-04 05:54 | XMS_ITS | Encounter Summary ---
Author Organization [facility] Address [address] [place] [address] Care Team Providers Care Epic Radiant Analyst Name Role Phone Ana Red P.A.-C. Primary Care Pro vider Encounter Details Date Type Department Care Team (Latest Contact Info) Description 09/22/2024 Clinical Communication Ramirez Navarrete [facility] for Transplantation and Clinical Regeneration in [place], [place] [address] [place] [phone] August, Sony Mendez R.N. [address] [place] [phone] Social History Tobacco Use Types Packs/Day Years [...] you attend [facility] or restorationism services? Patient declined 02/10/2022 Do [...] a [facility] place to live 09/23/2024 Education Answer Date Recorded What is the highest level of school you have completed or the highest degree you have received? Associate degree: occupational, technical, or vocational program 07/16/2021 Comments No Sex and Gender Information Value Date Recorded Sex Assigned at Female 04/12/2021 7:39 PM EVAPORATOR Legal Sex Female 7:53 PM EVAPORATOR Gender Identity Female 04/12/2021 7:39 PM EVAPORATOR Sexual Orientation Straight 04/12/2021 7: 39 PM EVAPORATOR documented as of this encounter Plan of Treatment Upcoming Encounters Date Type Department Care Team (Latest Contact Info) Description 10/05/2024 9:30 AM CDT Appointment Department of Radiology, [facility], in [place], [place] [address] [place] [address] Marisabel Carpenter APRN, C.N.P., D.N.P. 200 [place] [phone] 10/05/2024 12:00 PM CDT Appointment Division of Pulmonary Medicine in [place], [place] [address] [place] [address] Edgar Montgomery M.B.B.S., M.S. [address] [place] [phone] 10/05/2024 2:45 PM CDT Infusion Department of Infusion Therapy in [place], [place] [address] [place] [address] Noreen Ansari P.A.-C., M.S. [address] [place] [phone] 10/10/2024 7:50 AM CDT Lab Department of Laboratory Medicine and Pathology, [facility] in [place], [place] [address] [place] [address] Marisabel Carpenter APRN, C.N.P., D.N.P. [address] [place] [phone] 10/10/2024 8:00 AM CDT Lab Department of Laboratory Medicine and Pathology, [facility] in [place], [place] [address] [place] [address] Marisabel Carpenter APRN, C.N.P., D.N.P. [address] [place] [phone] 10/10/2024 8:30 AM CDT Nurse Only [facility] in [place], [place] [address] [place] [address] Marisabel Carpenter APRN, C.N.P., D.N.P. [address] [place] [phone] 10/10/2024 9:20 AM CDT Appointment Department of Radiology, [facility] in [place], [place] [address] [place] [address] Marisabel Carpenter APRN, C.N.P., D.N.P. [address] [place] [phone] 10/10/2024 9:45 AM CDT [facility] [place], [place] [address] [place] [address] Marisabel Carpenter APRN, C.N.P., D.N.P. [address] [place] [phone] 10/10/2024 1:30 PM CDT Appointment Department of Radiology, [facility] in [place], [place] [address] [place] [address] Marisabel Carpenter APRN, C.N.P., D.N.P. [address] [place] [phone] Discharge Disposition: Home or Self Care 10/10/2024 2:45 PM CDT Appointment Department of Radiology, [facility], in [place], [place] [address] [place] [address] Marisabel Carpenter APRN, C.N.P., D.N.P. [address] [place] [phone] 10/11/2024 8:00 AM CDT Office Visit Ramirez diaz [facility] for Transplantation and Clinical Regeneration in [place], [place] [address] [place] [address] PintMarisabel APRN, C.N.P., D.N.P. [address] [place] [phone] 10/11/2024 11:00 AM CDT Comprehensive Visit [facility] for Transplantation and Clinical Regeneration in [place], [place] [address] [place] [phone] Sree Devlin M.D. [address] [place] [phone] 10/11/2024 1:00 PM CDT Comprehensive Visit Department of Otorhinolaryngology in [place], [place] [address] [place] [phone] Randal Urbano P.A.-C., M.S. [address] [place] [phone] 10/11/2024 2:00 PM CDT Office Visit [facility] Transplantation and Clinical Regeneration in [place], [place] [address] [place] [phone] Hiro Murillo P.A.-C. [address] [place] [phone] 10/11/2024 4:00 PM CDT Comprehensive Visit Department of Dermatology in [place], [place] [address] [place] [phone] Parul Martinez M.D. [address] [place] [phone] 10/12/2024 8:00 AM CDT Telemedicine [facility] for Transplantation and Clinical Regeneration in [place], [place] [address] [place] [phone] Ervin Mckeon D.O. [address] [place] [phone] 11/01/2024 2:15 PM CDT Appointment Division of Pulmonary Medicine in [place], [place] [address] [place] [address] Edgar Montgomery M.B.B.S., M.S. [address] [place] [address] documented as of this encounter Visit Diagnoses Not on filedocumented in this encounter Additional Health Concerns Infection Onset Date Last Indicated Resolved Time Protective Environment 10/10/2022 10/10/2022 Assessment Noted Time PHQ-9 Depression Total Score: 4 08/12/19 25 3:31 PM CDT documented as of this encounter Care Teams Epic Radiant Analyst Relationship Specialty Start Date End Date Ana Red MPAS, P.A.-C. [address] [place] [phone] PCP - General Internal Medicine 12/01/21 [facility] [place] [facility] 08/25/21 documented as of this encounter
--- OUTSIDE RECORDS SUMMARY | 2024-10-04 05:55 | XMS_ITS | Encounter Summary ---
Author Organization [facility] Address [address] [place] [address] Care Team Providers Care Patrol Police Sergeant Name Role Phone Ana Red, P.A.-C. Primary Care Pro vider Reason for Visit * Reason Onset Date Comments Med Refill 08/04/2024 Encounter Details Date Type Department Care Team (Late st Contact Info) Description 08/04/2024 Refill Department of Community Internal Medicine in [place], [place] [address] [place] [phone] Ana Red MPAS, P.A.-C. [address] [place] [phone] Med Refill Social History Tobacco Use Types Packs/Day Years Used Date Smoking Tobacco: Former Cigarettes 1 - 10/12/2021 Passive Smoke Exposure: Never Smokeless Tobacco: Never Comments:No longer smoke Alcohol Use Standard Drinks/Week Comments Never 0 (1 standard drink = 0.6 oz pure alcohol) Havent had any alcohol in about a year or so. [facility] Utilities Answer Date Recorded In the past 12 months has [facility] electric, gas, oil, or water [employer] threatened to shut off services in your [...] Answer Date Recorded PHQ-2 Score 0 08/11/2024 [facility] of Occupat ional Health - Occupational Stress [...] a [facility] place to live 08/22/2024 Education Answer Date Recorded What is the highest level of school you have completed or the highest degree you have received? Associate degree: occupational, technical, or vocational program 07/16/2021 Comments No Sex and Gender Information Value Date Recorded Sex Assigned at Female 04/12/2021 7:39 PM HYDRAULIC JACK OPERATOR Legal Sex Female 7:53 PM HYDRAULIC JACK OPERATOR Gender Identity Female 04/12/2021 7:39 PM HYDRAULIC JACK OPERATOR Sexual Orientation Straight 04/12/2021 7: 39 PM HYDRAULIC JACK OPERATOR documented as of this encounter Miscellaneous Notes * Telephone Encounter - Meena Luz R.N. - 08/07/2024 3:53 PM CDT [employer] Truck Driver notified patient that covering provider has decided to hold off on filling her Dilaudid. HerPCP will be in the office tomorrow morning and will review the request. documented in this encounter Plan of Treatment Upcoming Encounters Date Type Department Care Team (Latest Contact Info) Description 10/05/2024 9:30 AM CDT Appointment Department of Radiology, [facility] in [address] [phone] Marisabel Carpenter APRN, C.N.P., D.N.P. [address] [place] [phone] 10/05/2024 12:00 PM CDT Appointment Division of Pulmonary Medicine in [address] [phone] Edgar Montgomery M.B.B.S., M.S. [address] [place] [phone] 10/05/2024 2:45 PM CDT Infusion Department of Infusion Therapy in [address] [address] Noreen Ansari P.A.-C., M.S. [address] [place] [phone] 10/10/2024 7:50 AM CDT Lab Department of Laboratory Medicine and Pathology, [address] [phone] Marisabel Carpenter APRN, C.N.P., D.N.P. [address] [place] [phone] 10/10/2024 8:00 AM CDT Lab Department of Laboratory Medicine and Pathology, [facility] in [address] [phone] Marisabel Carpenter APRN, C.N.P., D.N.P. [address] [place] [phone] 10/10/2024 8:30 AM CDT Nurse Only Ramirez diaz [facility] Trans[facility] and Clinical [facility] in [place], [place] [address] [place] [address] Marisabel Carpenter APRN, C.N.P., D.N.P. [address] [place] [phone] 10/10/2024 9:20 AM CDT [facility] [place], [place] [address] [place] [address] Marisabel Carpenter APRN, C.N.P., D.N.P. [address] [place] [phone] 10/10/2024 9:45 AM CDT Appointment Department of Laboratory Medicine and Pathology, [facility] in [place], [place] [address] [place] [address] Marisabel Carpenter APRN, C.N.P., D.N.P. [address] [place] [phone] 10/10/2024 1:30 PM CDT Appointment Department of Radiology, [facility] in [place], [place] [address] [place] [address] Marisabel Carpenter APRN, C.N.P., D.N.P. [address] [place] [phone] Discharge Disposition: Home or Self Care 10/10/2024 2:45 PM CDT Appointment Department of Radiology, [facility], in [place], [place] [address] [place] [address] Marisabel Carpenter APRN, C.NDayne, D.N.P. [address] [place] [phone] 10/11/2024 8:00 AM CDT [facility] in [place], [place] [address] [place] [phone] Marisabel Carpenter APRN, C.NDayne, D.N.P. [address] [place] [phone] 10/11/2024 11:00 AM CDT Comprehensive Visit [facility] in [place], [place] [address] [place] [phone] Sree Devlin M.D. [address] [place] [phone] 10/11/2024 1:00 PM CDT Comprehensive Visit Department of Otorhinolaryngology in [address] [phone] Randal Urbano, P.A.-C., M.S. [address] [place] [phone] 10/11/2024 2:00 PM CDT Office Visit [facility] for Transplantation and Clinical Regeneration in [place], [place] [address] [place] [phone] Hiro Murillo P.A.-C. [address] [place] [phone] 10/11/2024 4:00 PM CDT Comprehensive Visit Department of Dermatology in [place], [place] [address] [place] [phone] Parul Martinez M.D. [address] [place] [phone] 10/12/2024 8:00 AM CDT Telemedicine [facility] in [place], [place] [address] [place] [phone] Ervin Mckeon D.O. [address] [place] [phone] 11/01/2024 2:15 PM CDT Appointment Division of Pulmonary Medicine in [place], [place] [address] [place] [phone] Edgar Montgomery M.B.BSumaS., M.S. [address] [place] [phone] documented as of this encounter Visit Diagnoses Diagnosis Chronic Pain Syndrome documented in this encounter Additional Health Concerns Infection Onset Date Last Indicated Resolved Time Protective Environment 10/10/2022 10/10/2022 Assessment Noted Time PHQ-9 Depression Total Score: 4 06/18/19 24 12:20 PM HYDRAULIC JACK OPERATOR documented as of this encounter Care Teams Patrol Police Sergeant Relationship Specialty Start Date End Date Ana Red MPAS, P.A.-C. [address] [place] [phone] PCP - General Internal Medicine 12/01/21 [facility] [place] [facility] 08/25/21 documented as of this encounter
--- OUTSIDE RECORDS SUMMARY | 2024-10-04 05:55 | XMS_ITS | Clinical Summary ---
Author Organization [facility] Address [address] [place] [address] Care Team Providers Care Deputy Felony Clerk Name Role Phone Ana Red P.A.-C. Primary Care Pro vider Source Comments Patient records contain information from all sites at [facility]. For routine questions regarding patient records, call [phone] during business hours, M-F 8:00 AM - 5:00 PM Central Time. Record requests for emergency care only can be directed to [phone] at any time.[facility] Allergies Active Allergy Reactions Criticality Noted [...] response. 2 each 04/25/20 24 12:55 PM VASC TECH 024 Active blood-glucose meter misc Test as directed for diabetes control. 1 each 05/15/19 25 1:09 PM VASC TECH 025 Active blood glucose control high,low (Accu-Chek Guide L1-L2 Ctrl Shayna) solution Use as directed with diabetes glucose meter to ensure accurate blood glucose testing. 1 each 05/15/19 1:09 PM VASC TECH 025 Active predniSONE (Deltasone) 5 mg tablet Take 1 tablet (5 mg total) by mouth daily. 90 tablet 06/27/19 5:33 PM VASC TECH 025 Active pen needle, diabetic (BD Ultra-Fine [...] day. 100 test 1 07/05/19 1:55 PM VASC TECH 025 2025 Active lipase-protease- amylase (Creon) 12,000-38,000-60 [address] capsule Take 2 capsules (24,000 Units of lipase total) by mouth 3 (three) times a day with meals. 100 capsule 07/13/19 5:18 PM CDT 025 Active lancets Use 2 (two) times a day. Use as directed for diabetes testing. 100 each 1 07/05/19 1:55 PM VASC TECH 025 Active methocarbamoL (Robaxin) 750 mg tablet Take 1 tablet (750 mg total) by mouth 2 (two) times a day. 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 Change sensor every 15 days 6 each 3 09/10/19 12:32 PM CDT 025 Active traZODone (DesyreL) 50 mg tablet TAKE 1 TO 3 TABLETS(50 TO 150 MG) BY MOUTH AT BEDTIME NEEDED FOR SLEEP 180 tablet 3 Active Additional Information Patient taking differently: 50 mg oral Bedtime PRN, sleep, TAKE 1 TO 3 TABLETS(50 TO 150 MG) BY MOUTH AT BEDTIME NEEDED FOR SLEEP, Reported on 09/23/2024 alcohol swabs (Alcohol Wipes) pads, medicated Use as needed with diabetic supplies 100 each 08/11/19 25 4:35 PM CDT 025 Active prochlorperazine (Compazine) 10 mg tablet Take 1 tablet (10 mg total) by mouth every 6 (six) hours as needed for nausea or vomiting. 30 tablet 09/01/19 25 9:26 AM CDT 025 Active cholestyramine (Questran) 4 gram packet Take 60 mL (1 packet total) by mouth 2 (two) times a day as needed (itching). Take 3 hours away from other medications 30 packet 1 025 Active insulin glargine 100 unit/mL (3 mL) pen Inject 8 Units under the skin 2 (two) times a day. 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 Take a tablet 30 minutes before tacrolimus dose. 90 tablet 09/10/19 25 12:32 PM CDT Active pregabalin (Lyrica) 75 mg capsule Take 1 capsule (75 mg total) by mouth 2 (two) times a day. 60 capsule 09/16/19 7:42 PM CDT 025 2024 Active valGANciclovir (Valcyte) 450 mg tabletIndication s:Prophylaxis, medical Take 2 tablets (900 mg total) by mouth daily with morning meal Indications: Prophylaxis, medical. 176 tablet 09/10/19 25 12:32 PM CDT 025 2024 Active pentamidine (Nebupent) 50 mg/mL inhalation solution Inhale 6 mL (300 mg total) every 28 (twenty-eight) days. These are scheduled for 10/05/2024 & 11/01/2024. 025 Active HYDROmorphone (Dilaudid) 2 mg tabletIndication s:Acute Pain Take 1 tablet (2 mg total) by mouth every 6 (six) hours Indication: Acute Pain. 10 tablet 09/19/19 12:40 PM CDT Active insulin aspart U-100 (NovoLOG FlexPen) 100 unit/mL (3 mL) pen Inject 4 Units under the skin 3 (three) times a day with meals. For blood glucose: 180-219: give 1 units 220-259: 2 units 260-299: 3 units 300-339: 4 units 340-379: 5 units 380-399: 6 units Greater than 399: 7 units. 15 mL Active tacrolimus (Prograf) 1 mg capsuleIndicatio ns:prevention of liver transplant rejection Take 5 capsules (5 mg total) by mouth 2 (two) times a day Indications: liver transplant rejection prevention. Changed from 3 mg BID to 5 mg BID on 09/19. 900 capsule 3 2025 Active NaCl 0.9% parenteral solution 89 mL with belatacept 25 mg/mL recon soln 275 mg 275 mg. Belatacept Schedule: 5 mg/kg on 09/25, 10/09, 10/23, 11/06; then 5 mg/kg every 28 days starting 11/20/24. Active polyethylene glycol (Miralax) 17 gram powder packet Take 1 packet (17 g total) by mouth daily. Dissolve each 17 g dose in 240 mLs (8 ounces) of beverage. 30 packet 2024 Discontinued(T herapy completed) sennosides-docus ate sodium (Senokot-S) 8.6-50 mg per tablet Take 1 tablet by mouth 2 (two) times a day as needed for constipation. 100 tablet 06/27/19 5:33 PM VASC TECH 2024 Discontinued tacrolimus (Prograf) 1 mg capsuleIndicatio ns:prevention of liver transplant rejection Place 2 capsules (2 mg total) under the tongue every morning AND 2 capsules (2 mg total) every evening. 360 capsule 3 06/27/19 5:33 PM VASC TECH 2024 Discontinued insulin glargine 100 unit/mL (3 mL) pen Inject 7 Units under the skin 2 (two) times a day. Pharmacy select brand per patient insurance/prefe rence. Patient to use glargine until she receives Tresiba. 12.6 mL 2 2024 Discontinued ondansetron (Zofran) 4 mg tabletIndication s:Transplant Liver (HCC),Nausea,Med ication Therapy Fdc Not 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 Take 1 tablet (4 mg total) by mouth every 6 (six) hours as needed for nausea or vomiting. 28 tablet 08/26/19 8:13 PM CDT 2024 Discontinued insulin aspart U-100 (NovoLOG Flexpen [...] day. 60 capsule 2024 Discontinued HYDROmorphone (Dilaudid) 2 mg tabletIndication s:Chronic Pain/Nonacute Pain Take 1 tablet (2 mg total) by mouth every 6 (six) hours as needed for severe pain or score 7-10 of 10 for up to 7 days Indication: Chronic Pain/Nonacute Pain. 28 tablet 09/01/19 9:26 AM CDT 2024 Discontinued(S top Taking at Discharge) insulin aspart U-100 (NovoLOG Flexpen U-100 Insulin) [...] 15 mL 09/10/19 12:32 PM CDT 025 2024 Discontinued tacrolimus (Prograf) 1 mg capsuleIndicatio ns:prevention of liver transplant rejection Take 3 capsules (3 mg total) by mouth 2 (two) times a day Indications: liver transplant rejection prevention. 540 capsule 3 09/10/19 12:32 PM CDT 025 2024 Discontinued tacrolimus (Prograf) 1 mg capsuleIndicatio ns:prevention of liver transplant rejection Take 4 capsules (4 mg total) by mouth 2 (two) times a day Indications: liver transplant rejection prevention. 720 capsule 3 025 2024 Discontinued Active Problems Problem Noted Date Diagnosed Date Diabetes Mellitus Drug Or Ch emical Induced With Hyperglycemia 09/23/2024 Rejection Liver Transplant 09/06/2024 Rejection Graft Acute [...] (02/09/2022): Added automatically from request for surgery [id number] Smoking Tobacco Use Personal History 10/10/2021 Overview [...] upcoming visit scheduled with Pain Rehabilitation in [place] and I hopeful this provides benefit to the patient. Dilaudid prescription refilled. Follow up in 1 month. Deficiency Vitamin A 10/08/2021 Deficiency Coagulation Acquired 07/07/2021 Overview (07/07/2021): Added automatically from request for surgery [id number] Thrombocytopenia 07/01/2021 Patent Foramen Ovale 03/19/2021 Overview (11/18/2023): Echocardiogram August 2021: Positive for atrial level shunt by agitated saline contrast injection. 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 Opioids were discontinued during hospitalization of October 2021. 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 Date Type Department Care Team Description 10/02/[address] [facility], Tenth Floor [address] [place] [address] Ana Red MPAS, P.A.-C. Med Refill 09/27/2024 Patient Outreach Department of Community Internal Medicine in [place] [address] [place] [phone] Xuan Malcolm R.N. Post Hospital Follow-up (TCM- 2nd call attempt) 09/27/2024 Clinical Communication Department of Community Internal Medicine in [place], [place] [address] [place] [address] Xuan Malcolm R.N. Post Hospital Follow-up (TCM- 1st call attempt) 09/25/2024 Clinical Communication [facility] [address] [place] [address] [address] Kuhn I., Pharm.D., R.Ph., BCPS Med Management (Belatacept) 09/22/2024 8:23 PM CDT - 09/26/2024 2:20 PM CDT Hospital Encounter [facility], [facility], [facility], Tenth Floor [address] [place] [phone] Sree Sena M.D. Ilyas, Sumera I. M.B.B.S. 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 Surgical Pathology 09/22/2024 Clinical Communication [facility] in [place], [place] [address] [place] [address] Sony Carty RSumaNSuma 09/22/2024 Intake [facility] 09/22/2024 Clinical Communication [facility] in [place], [place] [address] [place] [address] Sony Carty RSumaNSuma 09/22/2024 Clinical Communication [facility] in [place], [place] [address] [place] [address] Sony Carty RGabby 09/21/2024 9:26 AM CDT Anesthesia Event Department of Radiology, [facility] in [place], [place] [address] [place] [phone] Jacqueline Denise APRN, CRNA 09/21/2024 8:21 AM CDT - 09/21/2024 11:55 AM CDT Hospital Encounter Department of Radiology, [facility] in [place], [place] [address] [place] [phone] Kenny Purdy M.D. Transplant Liver (HCC); Rejection Liver Transplant (HCC) Discharge Disposition: Home or Self Care 09/20/2024 3:00 PM CDT Telemedicine [facility] in [place], [place] [address] [place] [phone] Catia Quintana APRN, C.N.P. Swier, Chelsey A R.NSuma Ivey 09/20/2024 Orders Only [facility] in [place], [place] [address] [place] [phone] Sony Carty, R.N. Transplant Liver (HCC) (Primary Dx); Rejection Liver Transplant (HCC) 09/19/2024 Orders Only [facility] in [address] [phone] Sony Carty, R.N. 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 09/19/2024 Clinical Communication [facility] in [place], [place] [address] [place] [phone] Noreen Ansari P.A.-C., M.S. Order Clarification (Thymo infusion order) 09/18/2024 11:40 AM CDT Lab Department of Infusion Therapy in [place], [place] [address] [place] [address] Kenny Purdy M.D. Transplant Liver (HCC) (Primary Dx); Rejection Liver Transplant (HCC); Medication Therapy Fdc Not 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 09/18/2024 Orders Only [facility] in [place], [place] [address] [place] [address] Sony Carty, R.N. Transplant Liver (HCC) (Primary Dx); Rejection Liver Transplant (HCC) 09/18/2024 Clinical Communication [facility] in [place], [place] [address] [place] [address] Sony Carty R.N. 09/18/2024 Clinical Communication [facility] in [place], [place] [address] [place] [address] Sony Carty, R.N. Phone Contact 09/17/2024 2:00 PM CDT Infusion Department of Infusion Therapy in [place], [place] [address] [place] [address] Kenny Purdy M.D. Rejection Graft Acute (Primary Dx); Transplant Liver (HCC) 09/17/2024 Clinical Communication Department of Infusion Therapy in [place], [place] [address] [place] [address] Aidee Neves, R.N. 09/17/2024 Clinical Communication Department of Infusion Therapy in [place], [place] [address] [place] [phone] Nola Coto, R.N. 09/17/2024 Clinical Communication Department of Infusion Therapy in [place], [place] [address] [place] [phone] Aidee Neves, R.N. 09/15/2024 1:45 PM CDT Infusion Department of Infusion Therapy in [place], [place] [address] [place] [address] Juan Pete M.D. Transplant Liver (HCC) (Primary Dx) Discharge Disposition: Home or Self Care 09/15/2024 11:00 AM CDT Office Visit [facility] Trans[facility] Clinical [facility]eneration in [place], [place] [address] [place] [phone] Edgar Montgomery M.B.B.S., M.S. Ave Kuhn I., Michelle., R.Ph., [facility] Transplant Liver (HCC) [Z94.4] (Primary Dx); Rejection Graft Acute [T86.91] Discharge Disposition: Home or Self Care 09/15/2024 10:00 AM CDT Comprehensive [facility] [address] [address] Edgar Montgomery M.B.B.S., M.S. Miriam Strickland M.D. Rejection Liver Transplant (HCC) (Primary Dx); Transplant Liver (HCC) 09/15/2024 8:20 AM CDT Lab Department of Infusion Therapy in [place], [place] [address] [place] [phone] Edgar Montgomery M.B.B.S., M.S. Transplant Liver (HCC) (Primary Dx); Rejection Liver Transplant (HCC) 09/15/2024 Orders Only [facility] in [address] [phone] Sony Carty, REric. Transplant Liver (HCC) (Primary Dx); Medication Therapy Fdc Not 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; Rejection Liver Transplant (HCC) 09/15/2024 Clinical Communication Department of Nutrition and Diabetes Education in [address] [phone] Nancy Feliz R.N. 09/15/2024 Medication Management [facility] in [place] [address] [place] [phone] Kenny Purdy M.D. Rejection Graft Acute (Primary Dx) 09/14/2024 Clinical Communication [facility] in [place], [place] [address] [place] [address] Sony Carty R, R.N. 09/14/2024 Orders Only [facility] in [place], [place] [address] [place] [address] Sony Carty, R.N. Transplant Liver (HCC) (Primary Dx); Rejection Liver Transplant (HCC) 09/14/2024 Orders Only [facility] in [place], [place] [address] [place] [address] Noreen Ansari P.A.-C., M.S. 09/14/2024 Clinical Communication [facility] in [place], [place] [address] [place] [address] Sony Carty, R.N. 09/13/2024 1:00 PM CDT Infusion Department of Infusion Therapy in [place], [place] [address] [place] [address] Edgar Montgomery M.B.BSumaS., M.S. Transplant Liver (HCC) (Primary Dx); Rejection Graft Acute 09/13/2024 Clinical Communication Department of Infusion Therapy in [place], [place] [address] [place] [address] Nita Long, NC-, R.N. 09/13/2024 Orders Only [facility] in [place], [place] [address] [place] [address] Ben Redmond APRN, C.N.P., D.N.P. 09/13/2024 Clinical Communication [facility] in [place], [place] [address] [place] [address] Debi Cerda R.N., C.C.T.CSuma 09/13/2024 Orders Only [facility] in [place], [place] [address] [place] [phone] Noreen Ansari P.A.-C., M.S. Aftercare Transplant Liver (HCC) (Primary Dx) 09/13/2024 Clinical Communication [facility] in [place], [place] [address] [place] [phone] Sony Carty R.N. 09/12/2024 Orders Only [facility] in [address] [address] Sony Carty R.N. 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 Emergency Department [address] [place] [phone] Marcelo Ballesteros M.D. Thrombosis Venous (Primary Dx); Pain Arm Right Discharge Disposition: Home or Self Care 09/11/2024 3:05 PM CDT Ancillary Procedure Department of Nursing 09/11/2024 2:15 PM CDT Infusion Department of Infusion Therapy in [address] [phone] Edgar Montgomery M.B.BSumaS., M.S. Rejection Graft Acute (Primary Dx); Swelling Arm; Rejection Liver Transplant (HCC); Abdominal Pain Discharge Disposition: Home or Self Care 09/11/2024 Documentation [facility] Trans[facility] in [address] [phone] Elsie Salcedo P.A.-C., M.S. 09/11/2024 Clinical Communication Department of Infusion Therapy in [address] [phone] Aidee Pulido R.N., LOUISA 09/11/2024 Clinical Communication [facility] in [place], [place] [address] [place] [phone] Michelle Luz M.D., M.S. 09/11/2024 Clinical Communication [facility] in [place], [place] [address] [place] [phone] Sony Carty R.N. Med Refill (Insurance Issues) 09/11/2024 Clinical Communication Department of Community Internal Medicine in [address] [phone] Salima Graham R.N. Post Hospital Follow-up (DC'd 09/09/24 @ 1752) 09/09/2024 Clinical Communication [facility] [address] [place] [phone] Jaiden May, Pharm.DSuma, R.Ph. Medication Problem 09/08/2024 Orders Only [facility] in [place], [place] [address] [place] [phone] Criselda Samayoa R.N., CCTN 09/07/2024 Orders Only [facility] in [place], [place] [address] [place] [phone] Criselda Samayoa R.N., CCTN Transplant Liver (HCC) (Primary Dx); Rejection Liver Transplant (HCC) 09/07/2024 Orders Only Division of Gastroenterology in [place], [place] [address] [place] [phone] Edgar Montgomery M.B.B.S., M.S. Rejection Graft Acute (Primary Dx) 09/07/2024 Orders Only Division of Endocrinology in [place], [place] [address] [place] [phone] Catia Quintana APRN, C.N.P. 09/06/2024 6:25 PM CDT - 09/09/2024 5:52 PM CDT Hospital Encounter [facility], Tenth Floor [address] [place] [address] Michelle Luz M.D., Ben Aguilar APRN, C.N.P., D.N.P. 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 09/05/2024 1:20 PM CDT Ancillary Procedure Department of Transplantation Surgery 09/05/2024 11:33 AM CDT - 09/05/2024 4:41 PM CDT Hospital Encounter [facility] 01 4 AM ADMIT [address] [place] [address] Migue Escobar M.D. Gunneson, Tim J, P.A.-CSuma Transplant Liver (HCC); Medication Therapy Fdc Not 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; Elevated Liver Function Test; Acute Abdomen Discharge Disposition: Home or Self Care 09/05/2024 Orders Only [facility] in [place], [place] [address] [place] [address] Hiro Murillo P.A.-C. Acute Abdomen (Primary Dx) 09/05/2024 Orders Only [facility] MNT Ana Red MPAS, P.A.-C. 09/05/2024 Orders Only [facility] [place], [place] [address] [place] [phone] Migue Escobar M.D. Rejection Liver Transplant (HCC) (Primary Dx) 09/04/2024 Orders Only [facility] [place], [place] [address] [place] [phone] Hiro Murillo P.A.-C. 09/04/2024 Clinical Communication [facility] Trans[facility]eneration in [address] [address] Sony Carty R.N. Phone Contact 09/01/2024 Orders Only [facility] [address] [phone] Noreen Ansari P.A.-C., M.S. 08/31/2024 8:30 AM CDT Office Visit [facility] in [address] [address] Xu Joel Jr., M.D. Leise, Michael D, M.D. Transplant Liver (HCC); Medication Therapy 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 Not 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; Chronic Pain Syndrome 08/31/2024 Clinical Communication Division of Endocrinology in [place], [place] [address] [place] [phone] Catia Quintana APRN, C.N.P. 08/31/2024 Orders Only Division of Endocrinology in [address] [phone] Catia Quintana APRN, C.N.P. 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 08/28/2024 Clinical Communication Department of Community Internal Medicine in [place], [place] [address] [place] [phone] Xuan Malcolm R.N. Post Hospital Follow-up 08/27/2024 8:00 AM CDT Infusion Department of Infusion Therapy in [place], [place] [address] [place] [phone] Xu Joel Jr., M.D. Rejection Graft Acute (Primary Dx); Abdominal Pain 08/25/2024 Orders Only [facility] in [place], [place] [address] [place] [phone] Sony Carty R.N. Transplant Liver (HCC) (Primary Dx); Medication Therapy Fdc Not 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 08/25/2024 Orders Only [facility] Transplantation [facility] Clinical Regeneration in [place], [place] [address] [place] [phone] Xu Joel Jr., M.D. Rejection Graft Acute (Primary Dx) 08/21/2024 6:26 PM CDT - 08/25/2024 8:23 PM CDT Hospital Encounter [facility], [facility], Sixth Floor [address] [place] [phone] Antonio Olivia M.D. McCandless, Audrey R, M.D. 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 Emergency Department [address] [place] [phone] Lopez Rodrigues M.D., M.B.A. Abdominal Pain (Primary Dx); Elevation Of Levels Of Liver Transaminase Levels; Nausea And Vomiting; Pancreatitis Chronic (HCC) Discharge Disposition: Home or Self Care 08/19/2024 Documentation [facility] in [place], [place] [address] [place] [phone] Gerard King M.D. 08/18/2024 Patient Self-Triage [facility] Symptom [employer], Provider 08/18/2024 Clinical Communication Division of Pulmonary Medicine in [place], [place] [address] [place] [phone] Ben Dickson APRN, C.N.P. Reschedule (RESCHEDULE APPT) 08/16/2024 Clinical Communication [facility] in [place], [place] [address] [place] [phone] Sony Carty R.N. 08/15/2024 1:30 PM CDT Comprehensive Visit [facility] in [place], [place] [address] [place] [phone] David Salazar APRN, C.N.P., D.N.P. Catia Quintana APRN, C.N.P. Diabetes Mellitus Due To Underlying Condition With Ketoacidosis Without Coma (HCC) 08/15/2024 8:00 AM CDT Clinical Support [facility] in [place] [id number] [place] [phone] Marquis Young, Ph.D., L.P. Conor Vega, Ph.D., L.P. Pain Abdominal Chronic (Primary Dx) 08/15/2024 Patient Self-Triage [facility] Symptom [employer], Provider 08/15/2024 Orders Only Division of Endocrinology in [place], [place] [address] [place] [address] Catia Quintana APRN, C.N.P. 08/14/2024 8:00 AM CDT Clinical Support [facility] in [place], [place] [address] [place] [phone] Marquis Young, Ph.D., L.P. Conor Vega, Ph.D., L.P. Pain Abdominal Chronic (Primary Dx); Chronic Pain Syndrome 08/14/2024 Refill Department of Community Internal Medicine in [address] [phone] Ana Red MPAS, P.A.-C. Med Refill 08/11/2024 3:30 PM CDT Office Visit Department of Community Internal Medicine in [address] [phone] Ana Red MPAS, P.A.-C. Diabetes Mellitus Type 2 Without Complication (HCC) (Primary Dx); Pain Abdominal Chronic; Chronic Pain Syndrome 08/07/2024 Refill Department of Community Internal Medicine in [address] [phone] Ana Red MPAS, P.A.-C. Med Refill 08/04/2024 Refill Department of Community Internal Medicine in [address] [phone] Ana Red MPAS, P.A.-C. Med Refill 07/31/2024 Refill Department of Community Internal Medicine in [address] [phone] Ana Red MPAS, P.A.-C. Med Refill 07/28/2024 Clinical Communication Department of Community Internal Medicine in [address] [phone] Xuan Malcolm R.N. Post Hospital Follow-up (TCM call completed) 07/27/2024 Orders Only Ramirez diaz [facility] in [place], [place] [address] [place] [phone] Noreen Ansari P.A.-C., M.S. 07/27/2024 Clinical Communication Department of Community Internal Medicine in [address] [phone] Ana Red MPAS, P.A.-C. 07/27/2024 Clinical Communication Division of Gastroenterology in [place], [place] [address] [place] [phone] Tyrone Kimble III, M.D., Ph.D. 07/27/2024 Refill Department of Community Internal Medicine in [address] [phone] Ana Red MPAS, P.A.-C. Med Refill 07/27/2024 Clinical Communication Division of Community Internal Medicine, [facility] in [place], [place] [address] [place] [phone] Cynthia Godinez M.D., M.P.H. 07/27/2024 Refill Department of Community Internal Medicine in [address] [phone] Ana Red MPAS, P.A.-C. Med Refill 07/25/2024 12:15 PM CDT - 07/27/2024 6:21 PM CDT Hospital Encounter [facility], [facility], Sixth Floor [address] [place] [phone] Karthik Davalos M.D., M.A. Daniel Adamson M.D., M.H.P.Patrica. Jody Aguilar M.B., B.Chir. Abdominal Pain (Primary Dx); Pancreatitis Chronic (HCC); Lower Abdominal Pain Unspecified Discharge Disposition: Home or Self Care 07/25/2024 10:30 AM CDT Comprehensive Visit Division of Hepatobiliary and Pancreas Surgery in [place], [place] [address] [place] [phone] Ellen Aldana M.D. Pancreatitis Chronic (HCC) (Primary Dx); Nausea And Vomiting; Abdominal Pain; Transplant Liver (HCC) 07/24/2024 1:45 PM CDT Clinical Support Division of Endocrinology in [place], [place] [address] [place] [phone] Kina Coon M.B.B.S. Other Specified Diabetes Mellitus With Other Specified Complication (HCC) [E13.69] (Primary Dx) 07/23/2024 Clinical Communication Division of Endocrinology in [address] [phone] Shira Lund M.D. 07/20/2024 9:00 AM CDT Clinical Support Department of Nutrition and Diabetes Education in [place], [place] [address] [place] [phone] Catia Quintana APRN, C.N.P. Jessy Baltazar REric., [facility] Diabetes Mellitus Type 1 With Ketoacidosis Without Coma (HCC) (Primary Dx) 07/20/2024 Refill Department of Community Internal Medicine in [address] [phone] Ana Red MPAS, P.A.-C. Med Refill 07/19/2024 Orders Only Division of Pulmonary Medicine in [address] [phone] Ben Dickson APRN, C.N.P. Diabetes Mellitus Type 1 With Ketoacidosis Without Coma (HCC) (Primary Dx); Transplant Liver (HCC) 07/19/2024 Episode Changes Division of Pulmonary Medicine in [place], [place] [address] [place] [phone] Ben Dickson APRN, C.N.P. 07/17/2024 2:00 PM CDT Telemedicine [facility] in [place], [place] [address] [place] [phone] Eleazar Velazquez M.D. Radhames Neumann, Ph.D., L.P. Pain Abdominal Chronic 07/17/2024 Refill Department of Community Internal Medicine in [place], [place] [address] [place] [phone] Ana eRd MPAS, P.A.-C. Med Refill 07/17/2024 Refill Department of [facility] in [place], [place] [address] [place] [phone] Ana Red MPAS, P.A.-C. Med Refill 07/11/2024 Clinical Communication Pharmacy Prior Auth [phone] Virginia Byers Rx Approval (Tresiba Flextouch 100 unit/ml) 07/10/2024 Refill Department of [facility] Internal Medicine in [place], [place] [address] [place] [phone] Ana Red MPAS, P.A.-C. Med Refill 07/06/2024 11:00 AM VASC TECH Clinical Support Department of Nutrition and Diabetes Education in [place], [place] [address] [place] [phone] Catia Quintana APRN, C.N.P. Marla Hairston, M.S.N., R.N., [facility] Diabetes Mellitus Due To Underlying Condition With Ketoacidosis Without Coma (HCC) 07/06/2024 Clinical Communication Department of Hospital Internal Medicine in [place], [place] [address] [place] [phone] Priscilla Love APRN, C.N.P., M.S.N. Rx Denial (Tresiba FlexTouch 100 Units/mL ) 07/06/2024 Refill Division of Endocrinology in [place], [place] [address] [place] [phone] Catia Quintana APRN, C.N.P. Med Refill 07/06/2024 Clinical Communication [facility] Mail [phone] [place] [phone] Ben Guerrero, Pharm.D., R.Ph. Medication Problem 07/05/2024 2:00 PM VASC TECH Telemedicine Department of Community Internal Medicine in [place], [place] [address] [place] [phone] Ana Red MPAS P.A.-C. Chronic Pain Syndrome (Primary Dx) 07/05/2024 Orders Only Pharmacy Prior Auth [phone] Colleen Vee 07/05/2024 Clinical Communication Department of Family Medicine, [facility], in [address] [phone] Salima Graham R.N. Post Hospital Follow-up (DC'd 07/04/24 @ 2000) 07/04/[address] [facility], Tenth Floor [address] [place] [phone] Ana Red MPAS, P.A.-C. Med Refill 07/04/2024 Refill Department of Community Internal Medicine in [address] [phone] Ana Red MPAS, P.A.-C. Med Refill 06/30/2024 6:14 PM VASC TECH - 07/04/2024 8:01 PM VASC TECH Hospital Encounter [facility], [facility], Third Floor [address] [place] [phone] Jessy Knight M.D., M.S. Chidi Kolb M.D., M.B.A. Joshua Elena M.D. Stephen Lozada M.D. Abdominal Pain (Primary Dx); Pancreatitis Chronic (HCC); Other Specified Diabetes Mellitus With Ketoacidosis Without Coma (HCC) Discharge Disposition: Home or Self Care from Last 3 Months Immunizations Immunization Administration [...] alcohol in about a year or so. [facility] [employer] Answer Date Recorded In the past 12 months has e [employer], gas, oil, or water [employer] threatened to shut off services in your [...] often do you attend chur ch or jainism services? Patient declined 02/10/2022 Do [...] Answer Date Recorded PHQ-2 Score 0 08/11/2024 [facility] - Occupational [...] a [facility] to live 09/23/2024 Education Answer Date Recorded What is the highest level of school you have completed or the highest degree you have received? Associate degree: occupational, technical, or vocational program 07/16/2021 Comments No Sex and Gender Information Value Date Recorded Sex Assigned at Female 04/12/2021 7:39 PM VASC TECH Legal Sex Female 7:53 PM VASC TECH Gender Identity Female 04/12/2021 7:39 PM VASC TECH Sexual Orientation Straight 04/12/2021 7: 39 PM VASC TECH Last Filed Vital Signs Vital Sign Reading [...] Mass Index 23.87 09/22/2024 8:33 PM CDT Plan of Treatment Upcoming Encounters Date Type Department Care Team (Latest Contact Info) Description 10/05/2024 9:30 AM CDT Appointment Department of Radiology, [facility], in [place], [place] [address] [place] [phone] Marisabel Carpenter APRN, C.NDayne, D.N.P. [address] [place] [phone] 10/05/2024 12:00 PM CDT Appointment Division of Pulmonary Medicine in [place], [place] [address] [place] [phone] Edgar Montgomery M.B.BSumaS., M.S. [address] [place] [phone] 10/05/2024 2:45 PM CDT Infusion Department of Infusion Therapy in [place], [place] [address] [place] [phone] Noreen Ansari P.A.-C., M.S. [address] [place] [phone] 10/10/2024 7:50 AM CDT Lab Department of Laboratory Medicine and Pathology, [facility] in [place], [place] [address] [place] [phone] Marisabel Carpenter APRN, C.N.Frances, D.N.P. [address] [place] [phone] 10/10/2024 8:00 AM CDT Lab Department of Laboratory Medicine and Pathology, [facility], in [place], [place] [address] [place] [phone] Marisabel Carpenter APRN, C.N.P., D.N.P. [address] [place] [phone] 10/10/2024 8:30 AM CDT Nurse Only [facility] in [place], [place] [address] [place] [phone] Marisabel Carpenter APRN, C.N.P., D.N.P. [address] [place] [phone] 10/10/2024 9:20 AM CDT Appointment Department of Radiology, [facility] in [place], [place] [address] [place] [phone] Marisabel Carpenter APRN, C.N.P., D.N.P. [address] [place] [phone] 10/10/2024 9:45 AM CDT Appointment Department of Laboratory Medicine and Pathology, [facility] in [place], [place] [address] [place] [phone] Marisabel Carpenter APRN, C.N.PSuma, D.N.P. [address] [place] [phone] 10/10/2024 1:30 PM CDT Appointment Department of Radiology, [facility] in [place], [place] [address] [place] [phone] Marisabel Carpenter APRN, C.N.P., D.N.P. [address] [place] [phone] Discharge Disposition: Home or Self Care 10/10/2024 2:45 PM CDT Appointment Department of Radiology, [facility] in [place], [place] [address] [place] [phone] Marisabel Carpenter APRN, C.N.P., D.N.P. [address] [place] [phone] 10/11/2024 8:00 AM CDT Office Visit [facility] in [place], [place] [address] [place] [phone] Marisabel Carpenter APRN, LowellNDayne, D.N.P. [address] [place] [phone] 10/11/2024 11:00 AM CDT Comprehensive Visit [facility] in [place], [place] [address] [place] [phone] Sree Devlin M.D. [address] [place] [phone] 10/11/2024 1:00 PM CDT Comprehensive Visit Department of Otorhinolaryngology in [place], [place] [address] [place] [phone] Randal Urbano, P.A.-C., M.S. [address] [place] [phone] 10/11/2024 2:00 PM CDT Office Visit [facility] in [place], [place] [address] [place] [phone] Hiro Murillo P.A.-C. [address] [place] [phone] 10/11/2024 4:00 PM CDT Comprehensive Visit Department of Dermatology in [place], [place] [address] [place] [phone] Parul Martinez M.D. [address] [place] [phone] 10/12/2024 8:00 AM CDT Telemedicine [facility] in [place], [place] [address] [place] [phone] Ervin Mckeon D.O. [address] [place] [phone] 11/01/2024 2:15 PM CDT Appointment Division of Pulmonary Medicine in [place], [place] [address] [place] [phone] Edgar Montgomery M.B.B.S., M.S. [address] [place] [phone] Health Maintenance Due Date Last Done Comments Diabetic Office Visit with F oot Exam 1990 Dilated Eye Exam 1990 Hepatitis A Vaccines (1 of 2 - Risk 2-dose series) 2009 Zoster Vaccines (1 of 2) 2009 HPV Vaccines (1 - Risk 3-dos e SCDM series) 2017 COVID-19 Vaccine (3 - Pfizer risk series) 05/13/2021 04/15/2021, 03/25/2021 DTaP,Tdap,and Td Vaccines (7 - Td or Tdap) 03/07/2024 03/07/2014, 09/08/2002, 05/26/1995, Additional history exists Controlled Substance Agreement 06/29/2024 06/29/2023 Urine Albumin 07/08/2024 2023 PEG assessment for Opioid therapy 08/23/2024 025 Hemoglobin A1C 11/09/2024 05/12/2024, 10/01, 02/15/2023, Additional history exists Abdominal Ultrasound 02/20/2025 08/21/2024, 06/21/2024, 05/11/2024, Additional history exists Lipid (Cholesterol) Screening 04/18/2025, 04/18/2024, 10/20/2023, Additional history exists Controlled Substance Monitor ing (UDS) 06/22/2025 06/22/2024 Controlled Substance Monitor ing (PHQ-9) 08/11/2025 08/11/2024 Generalized Anxiety (APPLE-7) 08/11/2025 08/11/2024 Visit: Chronic Disease, age 18+ 08/11/2025 Office Visit for Blood Press ure Check / Re-check 09/17/2025 09/17/2024 Creatinine Level (Kidney Fun ction Test) 09/26/2025 09/26/2024, 09/25/2024, 09/24/2024, Additional history exists Cervical/Vaginal Cancer Screening 06/25/2027 06/25/2022, 06/25/2022, 02/28/2014, Additional history exists IPV Vaccines Completed 05/26/1995, 05/04, 05/26/1995, Additional history exists Hepatitis B Screening Discontinued 03/12/2021, 019 Pneumococcal vaccine (0-49 years) Completed 023 HIV Screening Completed 10/10/2022, 01/02, 09/30/2021 Influenza Vaccine Completed 03/08/2024, , 03/07/2014, Additional history exists Depression Screening (Annual PHQ-2) Completed 08/11/2024, 08/11/2024 Medical Devices Implanted Type Area Belling Machine Operator Device Identifier Shelf Expiration Date Model / Serial / Lot Stnt Herculink Rx [id number] - [id number] Implanted:Qty : 1 on 12/11/2022 by Gonzalo Sheridan M.D. at [facility] Biliary Stent Rebolledo 09/30/2024 [id number] Mirena Iud-07/31/2022 Implanted:Qty : 1 on 07/31/2022 by Faviola Dickson APRN, C.N.P. Intrauterine Device Midline: Uterus Felipe 08/30/2024 / / [id number] Description:Mirena IUD Explanted Type Area Belling Machine Operator Device Identifier Shelf Expiration Date Model / Serial / Lot Stnt Gnn Pncr Dbl 7fx12 - [id number] Implanted:Qty: 1 on 12/29/2022 by Harinder Whiteside M.D., M.S. at [facility] Explanted:Qty: 1 on 02/16/2023 by Pura Hummel M.D. at [facility] Biliary Stent N/A: Pancreas [facility] 01/08/2025 [id number] / / [id number] Description:7x12 double flap pancreas stent Stnt Jhl Pncr Wdg 8.5fx22 - [id number] Implanted:Qty: 1 on 02/16/2023 by Pura Hummel M.D. at [facility] Explanted:Qty: 1 on 05/27/2023 by Juan Ross M.D. at [facility] Biliary Stent N/A: Pancreas [facility] 01/21/2026 [id number] / / [id number] Description:8.5x14 Intrauterine Device Explanted:Qty: 1 on 07/31/2022 [...] POCT, B Routine 09/26/2024 6:19 AM CDT TACROLIMUS LEVEL, B Routine 09/26/2024 5:15 AM CDT PROTHROMBIN TIME (PT), P Routine 025 5:15 AM CDT HEPATIC FUNCTION PANEL, S Routine 09/26/2024 5:15 AM CDT CBC WITH DIFFERENTIAL, B Routine 025 5:15 AM CDT BASIC METABOLIC PANEL, S/P [...] POCT, B Routine 09/25/2024 6:24 AM CDT TACROLIMUS LEVEL, B Routine 09/25/2024 6:21 AM CDT PROTHROMBIN TIME (PT), P Routine 025 6:21 AM CDT HEPATIC FUNCTION PANEL, S Routine 09/25/2024 6:21 AM CDT CBC WITH DIFFERENTIAL, B Routine 025 6:21 AM CDT BASIC METABOLIC PANEL, S/P [...] POCT, B Routine 09/24/2024 7:40 AM CDT PROTHROMBIN TIME (PT), P Routine 025 5:33 AM CDT HEPATIC FUNCTION PANEL, S Routine 09/24/2024 5:33 AM CDT CBC WITH DIFFERENTIAL, B Routine 025 5:33 AM CDT BASIC METABOLIC PANEL, S/P Routine 09/24/2024 5:33 AM CDT TACROLIMUS LEVEL, B Routine 09/24/2024 5:33 AM CDT GLUCOSE POCT, [...] DIPSTICK, U Routine 09/23/2024 8:04 AM CDT PH, U Routine 09/23/2024 8:04 AM CDT MICROSCOPIC AUTOMATED Routine 09/23/2024 8:04 AM CDT OSMOLALITY, U Routine 09/23/2024 8:04 AM CDT URINALYSIS WITH MICROSCOPIC Routine 09/23/2024 8:04 AM CDT PHOSPHORUS (INORGANIC), S Timed 09/23/2024 6:29 AM CDT MAGNESIUM, S Timed 09/23/2024 6:29 AM CDT TACROLIMUS LEVEL, B Timed 09/23/2024 6:29 AM CDT PROTHROMBIN TIME (PT), P Routine 025 6:29 AM CDT COMPREHENSIVE METABOLIC PANEL, S/P Routine 09/23/2024 6:29 AM CDT CBC WITH DIFFERENTIAL, B Routine 025 6:29 AM CDT ECG Routine 09/22/2024 8:57 PM CDT PROTHROMBIN TIME (PT), P STAT 025 8:43 PM CDT BILIRUBIN DIRECT, S/P STAT 09/22/2024 8:43 PM CDT CBC WITHOUT DIFFERENTIAL, B STAT 09/22/2024 8:43 PM CDT COMPREHENSIVE METABOLIC PANEL, S/P STAT 09/22/2024 8:[address] BODY Routine 09/22/2024 10:20 AM CDT PERFORM CENTRAL MANAGER RESPIRATORY CARE Routine 09/21/2024 10:48 AM CDT SURGICAL PATHOLOGY Timed 09/21/2024 9:54 AM CDT Transplant Liver (HCC) Rejection Liver Transplant (HCC) US LIVER TRANSPLANT BIOPSY RAD - Routine (most inpatients and all outpatients) 09/21/2024 9:52 AM CDT Transplant Liver (HCC) Rejection Liver Transplant (HCC) GLUCOSE POCT, B Routine 09/21/2024 8:57 AM CDT T CELL PHENOTYPING, ADVANCED, B Routine 09/18/2024 12:34 PM CDT Transplant Liver (HCC) Rejection Liver Transplant (HCC) PROTHROMBIN TIME (PT), P Routine 025 12:34 PM CDT Transplant Liver (HCC) Rejection Liver Transplant (HCC) TACROLIMUS LEVEL, B Routine 09/18/2024 12:34 PM CDT Transplant Liver (HCC) Medication Therapy 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 Not 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 Rejection Liver Transplant (HCC) COMPREHENSIVE METABOLIC PANEL, S/P Routine 09/18/2024 12:34 PM CDT Transplant Liver (HCC) Rejection Liver Transplant (HCC) CBC NO CALL BACK, REFLEX T/S Routine 09/18/2024 12:34 PM CDT Transplant Liver (HCC) Rejection Liver Transplant (HCC) BILIRUBIN DIRECT, S/P Routine 09/18/2024 12:34 PM CDT Transplant Liver (HCC) Rejection Liver Transplant (HCC) TACROLIMUS LEVEL, B Routine 09/15/2024 8:57 AM CDT Transplant Liver (HCC) Rejection Liver Transplant (HCC) PROTHROMBIN TIME (PT), P Routine 025 8:57 AM CDT Transplant Liver (HCC) Rejection Liver Transplant (HCC) COMPREHENSIVE METABOLIC PANEL, S/P Routine 09/15/2024 8:57 AM CDT Transplant Liver (HCC) Rejection Liver Transplant (HCC) CBC WITH DIFFERENTIAL, B Routine 025 8:57 AM CDT Transplant Liver (HCC) Rejection Liver Transplant (HCC) CMV DNA DETECT/QUANT, P Routine 09/16/19 25 8:57 AM CDT Transplant Liver (HCC) Rejection Liver Transplant (HCC) PLACE PERIPHERALLY INSERTED CENTRAL CATHETER (PICC) Routine [...] CDT ECG Routine 09/06/2024 7:02 PM CDT TX US GUIDE PLC NDL Routine 09/05/2024 4:17 PM CDT Transplant Liver (HCC) Medication Therapy Fdc Not 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 Elevated Liver Function Test TX BX NDL LIVER PERC Routine 09/05/2024 4:17 PM CDT Transplant Liver (HCC) Medication Therapy 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 Not 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 Elevated Liver Function Test SURGICAL PATHOLOGY Routine 09/05/2024 2:31 PM CDT TRANSPLANTATION SURG IMAGE EXAM Routine 09/05/2024 1:20 PM CDT PROTHROMBIN TIME (PT), P Routine 025 11:27 AM CDT Transplant Liver (HCC) Medication Therapy Fdc Not 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 Elevated Liver Function Test BILIRUBIN DIRECT, S/P Routine 09/05/2024 11:27 AM CDT Transplant Liver (HCC) TACROLIMUS LEVEL, B Routine 09/05/2024 11:27 AM CDT Transplant Liver (HCC) COMPREHENSIVE METABOLIC PANEL, S/P Routine 09/05/2024 11:27 AM CDT Transplant Liver (HCC) CBC WITH DIFFERENTIAL, B Routine 11:27 AM CDT Transplant Liver (HCC) CMV DNA DETECT/QUANT, P Routine 09/06/19 11:27 AM CDT Transplant Liver (HCC) Rejection Liver Transplant (HCC) ALANINE AMINOTRANSFERASE (ALT), S/P Routine 09/05/2024 11:19 AM CDT ASPARTATE AMINOTRANSFERASE (AST), S/P Routine 09/05/2024 11:19 AM CDT Rejection Liver Transplant (HCC) TACROLIMUS LEVEL, B Routine 08/31/2024 8:20 AM CDT Transplant Liver (HCC) Medication Therapy 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 Not 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 COMPREHENSIVE METABOLIC PANEL, S/P Routine 08/31/2024 8:20 AM CDT Transplant Liver (HCC) Medication Therapy 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 Not 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 CBC WITH DIFFERENTIAL, B Routine 8:20 AM CDT Transplant Liver (HCC) Medication Therapy Fdc Not Anticoagulant BILIRUBIN DIRECT, S/P Routine 08/31/2024 8:20 AM CDT Transplant Liver (HCC) Medication Therapy 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 Not 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 GLUCOSE POCT, B Routine 08/25/2024 [...] DIFFERENTIAL, B Timed 025 7:04 AM CDT GLUCOSE POCT, B Routine [...] CDT CBC WITH DIFFERENTIAL, B Routine 025 9:10 AM CDT BASIC METABOLIC PANEL, S/P [...] GLUCOSE POCT, B Routine 07/04/2024 4:20 PM VASC TECH GLUCOSE POCT, B Routine 07/04/2024 11:04 AM VASC TECH GLUCOSE POCT, B Routine 07/04/2024 8:01 AM VASC TECH GLUCOSE POCT, B Routine 07/04/2024 5:57 AM VASC TECH HEMOGLOBIN A1C, B Routine 05/12/2024 6:06 AM VASC TECH LIPID PANEL, S Routine 04/18/2024 7:02 AM VASC TECH ALBUMIN, RANDOM, U Routine 2023 9:43 AM VASC TECH Diabetes Mellitus Type 2 (HCC) HIV-1/-2 AG AND AB SCREEN, PLASMA STAT 10/10/2022 11:31 AM CDT HPV WITH GENOTYPING, PCR, THINPREP Routine 06/25/2022 5:12 PM VASC TECH HEPATITIS B SURFACE ANTIGEN Timed 03/12/2021 5:58 AM VASC TECH from Last 3 Months or Most Recently Relevant to Health Maintenance Results * (ABNORMAL) Glucose, POCT (09/26/2024 2:05 PM CDT) Only the most recent of91 resultswithin the time period is included. Glucose, POCT, B 207(H) 70 - 140 mg/dL 09/26/2024 2:08 PM CDT PCDE Site Capillary 09/26/2024 2:08 PM CDT PCDE Last Intake <1 hour 09/26/2024 2:08 PM CDT PCDE Blood 09/26/2024 2:05 PM CDT 09/26/2024 2:08 PM CDT us Unknown Provider LAB POCT ORDERABLES-MANUAL Lupe l Result POC [facility] [address] [place] [address], [facility] [facility] PC[facility] POC [address] [place] [address] * (ABNORMAL) Hepatic Function Panel (09/26/2024 5:15 AM CDT) Only the most recent of13 resultswithin the time period is included. Bilirubin, Total, S 0.6 0.0 - 1.2 [...] Purdy M.D. LAB BLOOD ADD-ON Final Result [facility] [address] [place] [address], [facility] [place] [facility] [place] [address] [place] [address] * (ABNORMAL) Tacrolimus, Trough (09/26/2024 5:15 AM CDT) Only the most recent of15 resultswithin the time period is included. Tacrolimus, Trough 4.3(L) 5.0-15.0 (Trough) ng/mL 09/26/2024 11:49 AM CDT [facility] Comment: ----ADDITIONAL INFORMATION---- Target steady-state trough concentrations vary depending on the type of transplant, concomitant immunosuppression, clinical/institutional protocols, and time post-transplant. Results should be interpreted in conjunction with this clinical information and any physical signs/symptoms of rejection/toxicity. Testing performed by Liquid Chromatography-Tandem Mass Spectrometry (LC-MS/MS). This test was developed and its performance characteristics determined by [facility] in a manner consistent with CLIA requirements. This test has not been cleared or approved by the U.S. Food and Drug Administration. Blood (Blood, Venous) 09/26/2024 5:15 AM CDT 09/26/2024 8:02 AM CDT Sofi Tucker APRN C.N.P., D.N.P. LAB BLOO D NON ADD-ON Final Result [facility] [address] [place] [address] [facility] [address] [place] [address] [place] [address] * (ABNORMAL) Prothrombin Time (PT) (09/26/2024 5:15 AM CDT) Only the most recent of11 resultswithin the time period is included. Prothrombin Time, P 9.3(L) 9.4 - 12.5 sec 09/26/2024 6:20 AM CDT DTL INR 0.8 0.9 - 1.1 09/26/2024 6:20 AM CDT DTL Comment: ----ADDITIONAL INFORMATION---- Standard intensity warfarin therapeutic range: 2.0 to 3.0 High intensity warfarin therapeutic range: 2.5 to 3.5 Blood (Blood, Venous) 09/26/2024 5:15 AM CDT 09/26/2024 5:41 AM CDT Kenny Purdy M.D. LAB BLOOD ADD-ON Final Result [facility] [address] [place] [address], [facility] DTL [facility] [address] [place] [address] * (ABNORMAL) CBC with Differential, Blood (09/26/2024 5:15 AM CDT) Only the most recent of20 resultswithin the time period is included. Hemoglobin 11.2(L) 11.6 - 15.0 g/dL 09/26/2024 [...] Purdy M.D. LAB BLOOD ADD-ON Final Result [facility] [address] [place] [address], [facility] DTL [facility] [address] [place] [address] DHPM [facility] [address] [place] [address] * (ABNORMAL) Basic Metabolic Panel (09/26/2024 5:15 AM CDT) Only the most recent of17 resultswithin the time period is included. [facility] Potassium, S 2.7(L) 3.6 - 5.2 mmol/L [...] Purdy M.D. LAB BLOOD ADD-ON Final Result [facility] [address] [place] [address], [facility] DTL [facility] [address] [place] [address] * (ABNORMAL) Insulin (09/26/2024 5:08 AM CDT) [facility] Insulin, S 25.4(H) 2.6 - 24.9 mcIU/mL 09/26/2024 1:01 PM CDT DTL Blood 09/26/2024 5:08 AM CDT 09/26/2024 12:26 PM CDT Gerard King M.D. LAB BLOOD ADD-ON Final Res ult [facility] [address] [place] [address], [facility] [place] [facility] [place] [address] [place] [address] * (ABNORMAL) T and B Marker, Transplant (09/23/2024 12:29 PM CDT) [facility] CD45 Total Lymph Count 0.78(L) 0.82 - [...] - 513 cells/mcL 09/24/2024 2:04 PM CDT [facility] 4 Ratio 0.4(L) >=0.9 09/24/2024 2:04 PM CDT [facility] Comment: ----ADDITIONAL INFORMATION---- This test was developed using an analyte specific reagent. Its performance characteristics were determined by [facility] in a manner consistent with CLIA requirements. This test has not been cleared or approved by the U.S. Food and Drug Administration. Blood (Blood, Venous) 09/23/2024 12:29 PM CDT 09/24/2024 8:58 AM CDT Gerard King M.D. LAB BLOOD ADD-ON Final Res ult Performing Organization Address City/[facility] [address]/ZIP Co de Phone Number [facility] [address] [place] [address] [facility] [address] [place] [address] [place] [address] * (ABNORMAL) Dipstick, Urine (09/23/2024 8:04 AM CDT) Only the most recent of2 resultswithin the time period is included. Hemoglobin, QL, U Negative Negative 09/23/2024 8:43 [...] E ORDERABLES Final Result Performing Organization Address City/[facility] [address]/ZIP Co de Phone Number [facility] [address] [place], [place] [address] [place] [address] DTL [facility] [address] [place] [address] * Microscopic Automated (09/23/2024 8:04 AM CDT) Only the most recent of2 resultswithin the time period is included. Microscopy Normal 09/23/2024 8:43 AM CDT DTL RBC None Seen <3 /hpf 09/23/2024 8:43 AM CDT DTL WBC None Seen /hpf 09/23/2024 8:43 AM CDT DTL Comment: ----REFERENCE VALUE---- <4 (Males) <11 (Females) Urine 09/23/2024 8:04 AM CDT 09/23/2024 8:14 AM CDT Sofi Tucker APRN, C.N.P., D.N.P. LAB URIN E ORDERABLES Final Result Performing Organization Address City/[facility] [address]/ZIP Co de Phone Number [facility] [address] [place] [address] * pH, Urine (09/23/2024 8:04 AM CDT) Only the most recent of2 resultswithin the time period is included. pH, U 6.5 4.5 - 8.0 09/23/2024 8:4 8 AM CDT DTL Urine 09/23/2024 8:04 AM CDT 09/23/2024 8:14 AM CDT Sofi Tucker APRN, C.N.P., D.N.P. LAB URIN E ORDERABLES Final Result [facility] [address] [place] [address] * Osmolality, Urine (09/23/2024 8:04 AM CDT) Only the most recent of2 resultswithin the time period is included. Osmolality, U 806 150 - 1150 mOsm/kg 09/23/2024 8:48 AM CDT DTL Urine 09/23/2024 8:04 AM CDT 09/23/2024 8:14 AM CDT Sofi Tucker APRN, C.N.P., D.N.P. LAB URIN E ORDERABLES Final Result Performing Organization Address [facility] Co de Phone Number [facility] [address] [place] [address] * Urinalysis, with Microscopic: Urine, Midstream (09/23/2024 8:04 AM CDT) Only the most recent of2 resultswithin the time period is included. Source Urine, Urine, Midstream 09/23/2024 8:14 AM [...] E ORDERABLES Final Result Performing Organization Address City/[facility] [address]/ZIP Co de Phone Number [address] [facility] [place] [address] [place] [address] * Phosphorus Inorganic (09/23/2024 6:29 AM CDT) Only the most recent of4 resultswithin the time period is included. Phosphorus (Inorganic), S 2.9 2.5 - 4.5 mg/dL 09/23/2024 7:36 AM CDT DTL Blood (Blood, Venous) 09/23/2024 6:29 AM CDT 09/23/2024 7:21 AM CDT Juan Mayo M.D. LAB BLOOD ADD-ON Final Resu lt Performing Organization Address City/[facility] [address]/ZIP Co de Phone Number [facility] [address] [place] [address] * Magnesium (09/23/2024 6:29 AM CDT) Only the most recent of4 resultswithin the time period is included. Pathologist [facility] [place] Magnesium, S 1.9 1.7 - 2.3 mg/dL 09/23/2024 7:36 AM CDT DT Blood (Blood, Venous) 09/23/2024 6:29 AM CDT 09/23/2024 7:21 AM CDT Juan Mayo M.D. LAB BLOOD ADD-ON Final Resu lt [facility] 200 [place] [address], [facility] [address] [place] [address] * (ABNORMAL) Comprehensive Metabolic Panel (09/23/2024 6:29 AM CDT) Only the most recent of8 resultswithin the time period is included. Potassium, [...] ADD-ON Final Resu lt Performing Organization Address City/[facility]/ZIP Co de Phone Number [facility] [address] [place] [address], [place] DTL [facility] [address] [place] [address] * ECG 12 Lead (09/22/2024 8:57 PM CDT) Only the most recent of5 resultswithin the time period is included. Pathologist [facility] [place] Ventricular Rate ECG/Min 108 BPM MUSE TX Interval 156 ms MUSE QRSD Interval 74 ms MUSE QT Interval 340 ms MUSE QTC Interval 455 ms MUSE P [place] 21 degrees MUSE R [place] 96 degrees MUSE T Wave [place] 68 degrees MUSE 09/22/2024 8:57 PM CDT [...] C.N.P., D.N.P. ECG ORDE RABLES Final Result Performing Organization Address City/[facility]/ZIP Co de Phone Number MUSE NA * CBC without Differential (09/22/2024 8:43 PM CDT) Only the most recent of2 resultswithin the time period is included. Hemoglobin 13.5 11.6 - 15.0 g/dL 09/22/2024 [...] D.N.P. LAB BLOO D ADD-ON Final Result Performing Organization Address City/[facility] [address]/ZIP Co de Phone Number [facility] [address] [place] [address], [facility] METH [facility] 200 [place] [address] * (ABNORMAL) Bilirubin, Direct (09/22/2024 8:43 PM CDT) Only the most recent of6 resultswithin the time period is included. Bilirubin, Direct, P 2.0(H) 0.0 - 0.3 mg/dL 09/22/2024 9:39 PM CDT DTL Blood (Blood, Venous) 09/22/2024 8:43 PM CDT 09/22/2024 9:23 PM CDT us Sofi Tucker APRN, C.N.P., D.N.P. LAB BLOO D ADD-ON Final Result [facility] [address] [place] [address], [facility] DTL [facility] [address] [place] [address] * Outside CT Body (09/22/2024 10:20 AM CDT) 09/22/2024 10:1 7 AM CDT Narrative [facility] - 09/22/2024 11:00 AM CDT This order has been created and auto-finalized to support the import of outside images. If available, original interpretation can be found on the Media Tab in Chart Review, in Document Viewer, as an image in InfinityView or as an Addendum. If a re-interpretation or overread is required please follow defined workflow. us Provider Not In System IMG CT PROCEDURES Final R esult IINV NA * Perform central airline lounge receptionist: Site care (09/21/2024 10:48 AM CDT) Narrative Sweetie Lynne R.N. - 09/21/2024 10:48 AM CDT Sweetie Lynne R.N. 09/21/2024 10:48 AM Perform central airline lounge receptionist: Site care Performed by: Sweetie Lynne R.N. Authorized by: Kenny Purdy M.D. Kenny Purdy M.D. PROCEDURE/MINOR SURGICAL ORDERABLES Final Result * Surgical Pathology (09/21/2024 9:54 AM CDT) Only the most recent of3 resultswithin the time period is included. 09/22/2024 11:31 AM CDT DTL Participated in [...] Tissue (Liver, Allograft) 09/21/2024 9:54 AM CDT Kenny Purdy M.D. LAB SURG PATH OR DERABLES Edited Result - Final [facility] [address] [place] [address], [facility] DT [address] [place] [address] * US Liver Transplant Biopsy (09/21/2024 9:52 AM CDT) Only the most recent of2 [...] US PROCEDURE S Final Result * (ABNORMAL) CBC no call back, reflex T/S HGB <8 (09/18/2024 12:34 PM CDT) Only the most recent of2 resultswithin the time period is included. Hemoglobin 13.2 11.6 - 15.0 g/dL 09/18/2024 [...] LAB BLOOD NON AD D-ON Final Result [facility] [address] [place] [address], [facility] DTL [facility] [address] [place] [address] [facility] [address] [place] [address] * (ABNORMAL) T-Cell Subsets, Naive, Memory and Activated (09/18/2024 12:34 PM CDT) [facility] CD4 (T Cells) 146(L) 365 - 1437 [...] % CD4 09/19/2024 11:51 AM CDT SDSC %CD4+EZ76T-CZ04-Z D45RO+ (Tem) 7.2 0.7 - 12.0 % CD4 09/19/2024 11:51 AM CDT SDSC %CD8+CD45RO+ memory T cells 58(H) 4 - 49 % CD8 09/19/2024 11:51 AM CDT SDSC %CD8+CD62L+CD27+C D45RO+ (Tcm) 26(H) 1 - 18 % CD8 09/19/2024 11:51 AM CDT SDSC %CD8+FO18U-AD91-Z D45RO+ (Tem) 14(H) 0 - 6 % [...] cells/m cL 09/19/2024 11:51 AM CDT SDSC CD4+XX42C-YV72-LK 45RO+ (Tem) 11 7 - 99 cells/m cL 09/19/2024 11:51 AM CDT SDSC CD8+CD45RO+ memory T cells 234 15 - 275 cells/m cL 09/19/2024 11:51 AM CDT SDSC CD8+CD62L+CD27+CD 45RO+ (Tcm) 105 6 - 135 cells/m cL 09/19/2024 11:51 AM CDT SDSC CD8+TY42U-MR36- CD45RO+ (Tem) 56(H) 0 - 36 cells/m cL 09/19/2024 11:51 AM CDT SDSC Activated CD4 T cells (4+CD25+) 10(L) 30 - 207 cells/m cL 09/19/2024 11:51 AM CDT SDSC CD4+HLA DR+CD28+ T cells 26 17 - 122 cells/m cL 09/19/2024 11:51 AM CDT SDSC CD8+HLA DR+CD28+ T cells 55 13 - 155 cells/m cL 09/19/2024 11:51 AM CDT SDSC Interpretation Significantly [...] number of CD8 effector memory T cells (CD8+EP54W-PD47-EB7 5RO+) (Tem). There is a moderate increase [...] Oliver Mcdonald M.D. 09/19/2024 11:51 AM CDT [facility] Comment: ----ADDITIONAL INFORMATION---- This test was developed using an analyte specific reagent. Its performance characteristics were determined by [facility] in a manner consistent with CLIA requirements. This test has not been cleared or approved by the U.S. Food and Drug Administration. Blood (Blood, Venous) 09/18/2024 12:34 PM CDT 09/18/2024 3:07 PM CDT Kenny Purdy M.D. LAB BLOOD ADD-ON Final Result Performing Organization Address City/[facility] [address]/ZIP Co de Phone Number [facility] [address] [place] [address] [facility] [address] [place] [address] [place] [address] * CMV DNA Detect / Quant, Plasma (09/15/2024 8:57 AM CDT) Only the most recent of3 resultswithin the time period is included. [facility] CMV DNA Detect/Quant, P Undetected Undetected IU/mL 09/16/2024 2:55 PM CDT [facility] Comment: Result in log IU/mL is Undetected. ----ADDITIONAL INFORMATION---- The quantification range of this assay is 35 to 10,000,000 IU/mL (1.54 log to 7.00 log IU/mL). Testing was performed using the john CMV test ([employer] Blood (Blood, Venous) 09/15/2024 8:57 AM CDT 09/15/2024 11:03 AM CDT Edgar Santillan, M.S. LAB MICROBIOLOG Y - BLOOD ORDERABLES Final Result Performing Organization Address City/[facility] [address]/ZIP Co de Phone Number [facility] [address] [address] [facility] [address] [place] [address] [place] [address] * LDA PICC SINGLE LUMEN (09/13/2024 1:00 [...] yes Complications: no apparent complications us Noreen LaguerreC., MSumaS. PROCEDURE/MINOR SURGICAL ORDERABLES Final Result [facility] NA * (ABNORMAL) Quantitative Lymphocyte Subsets: T, B, [...] reagent. Its performance characteristics were determined by [facility] in a manner consistent with CLIA requirements. This test has not been cleared or approved by the U.S. Food and Drug Administration. Blood (Blood, Venous) 09/13/2024 12:18 PM CDT 09/13/2024 2:49 PM CDT us Juan Pete M.D. LAB BLOOD ADD-ON Final Result Performing Organization Address [facility]/ZIP Co de Phone Number [facility] [address] [place] [address] [facility] [address] [place] [address] [place] [address] * Patient Status (09/12/2024 2:11 AM CDT) FIO2 0.21 0.21=AIR 09/12/2024 2:16 AM CDT [facility] Device RA 09/12/2024 2:16 AM CDT [facility] Spont. breaths/min 18 09/12/2024 2:16 AM CDT [facility] Blood 09/12/2024 2:11 AM CDT 09/12/2024 2:16 AM CDT us Hugo Patel M.D. LAB BLOOD NON ADD-ON Final Re sult Performing Organization Address [facility] Co de Phone Number [facility] [address] STMA [facility] [address] [place] [address] * (ABNORMAL) Blood Gas without Coox, Venous (09/12/2024 2:11 AM CDT) pO2, Venous, B 71 Not applicable mm Hg 09/12/2024 2:18 AM CDT [facility] pCO2, Venous, B 39(L) 41 - 51 mm Hg 09/12/2024 2:18 AM CDT [facility] pH, Venous, B 7.37 7.32 - 7.43 pH 2:18 AM CDT [facility] Base Excess, Venous, B -3 Not applicable mmol/L 09/12/2024 2:18 AM CDT [facility] HCO3, Venous, B 22 Not applicable mmol/L 09/12/2024 2:18 AM CDT [facility] Sample Site, Venous, B Venipunct 09/12/2024 2:16 AM CDT [facility] Blood (Blood, Venous) 09/12/2024 2:11 AM CDT 09/12/2024 2:16 AM CDT Hugo Patel M.D. LAB BLOOD NON ADD-ON Final Re sult [facility] [address] [place] [address], [facility] STMA [facility] [address] [place] [address] * CT Chest Angiogram and Pulmonary Arteries [...] <6 <=10 ng/L 09/12/2024 12:54 AM CDT [facility] Blood (Blood, Venous) 09/11/2024 11:55 PM CDT 09/12/2024 12:28 AM CDT us Hugo Patel M.D. LAB BLOOD TROPONIN Final Resu lt [facility] [address] [place] [address], [facility] [address] [place] [address] * NT-Pro B-Type Natriuretic Peptide (BNP) (09/11/2024 11:55 PM CDT) NT-Pro BNP 77 <160 pg/mL 09/12/2024 3:16 AM CDT [facility] Comment: REVISED RESULTS NT-proBNP values [...] Resul t - Final Performing Organization Address City/[facility]/[place] [address] * hCG (Human Chorionic Gonadotropin), Quantitative, (09/11/2024 11:55 PM CDT) Only the most recent of4 resultswithin the time period is included. HCG, Quantitative, , P <1.0 <5 IU/L 09/12/2024 12:54 AM CDT [facility] Blood (Blood, Venous) 09/11/2024 11:55 PM CDT 09/12/2024 12:28 AM CDT uHgo Patel M.D. LAB BLOOD ADD-ON Final Result Performing Organization Address City/[facility]/[place] [address], [place] [address] * Arm-Emergency Medicine Image Exam (09/11/2024 11:30 [...] NON RAD IMAGING PROCE DURES Final Result [facility] NA * US Upper Extremity Veins Right [...] and management can be found on the AskMayoExpert site. Link [email or web address] Procedure Note Haile Flowers M.D. - 09/12/2024 [...] thrombosis and management can be found on theAskMayoExpert site. [email or web address] IMPRESSION: 1. Negative for acute DVT. 2. 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 Xavi Sargent P.A.-C. IMG US PROCEDURES Final R esult * Bacteria / Raudel Culture, Blood #2 (09/11/2024 4:48 PM CDT) Only the most recent of2 resultswithin the time period is included. Pathologist [facility] Bacteria/Adriana da Culture, Blood No growth after 5 days of incubation. 09/16/2024 6:02 PM CDT DTL Blood (Blood, Peripheral Draw) 09/11/2024 4:48 PM CDT 09/11/2024 5:08 PM CDT Comment:Specimen Source Site : Blood Narrative [facility] - 09/16/2024 6:02 PM CDT Received Bactec aerobic and Bactec anaerobic bottles Michelle Luz M.D., M.S. LAB MICROBIOLOGY - GENERAL ORDERABLES Final Result [facility] [address] [place] [address], [facility] [place] [facility] [place] [address] [place] [address] * Beta-Hydroxybutyrate (09/11/2024 4:46 PM CDT) Pathologist [facility] Beta-Hydroxybut yrate, S <0.1 <0.4 mmol/L 09/12/2024 2:12 AM CDT DTL Blood (Blood, Venous) 09/11/2024 4:46 PM CDT 09/12/2024 1:39 AM CDT us Hugo Patel M.D. LAB BLOOD ADD-ON Final Result [facility] [address] [place] [address], [place] DTL [facility] [address] [place] [address] * Arm, Right-Nursing Image Exam (09/11/2024 3:03 [...] PROCE DURES Final Result Performing Organization Address City/[facility] Co de Phone Number [facility] NA * US Liver Transplant (09/07/2024 10:36 AM [...] in resistiveindices. 3. Mild splenomegaly, slightly improved. us Edgar Santillan, M.S. IMG US PROCEDUR ES Final Result * TX BX NDL LIVER PERC, TX US [employer] NDL (09/05/2024 4:17 PM [...] OR DERABLES Final Result [facility] NA * Non-Radiology Image-Transplantation Surg Image Exam (09/05/2024 [...] PROCE DURES Final Result Performing Organization Address City/[facility]/ZIP Co de Phone Number IINV NA * (ABNORMAL) ALT (Alanine Aminotransferase) (09/05/2024 11:19 AM CDT) Alanine Aminotransferase (ALT), S 1094(H) 7 - 45 U/L 09/06/2024 11:17 AM CDT DTL Blood 09/05/2024 11:1 9 AM CDT 09/06/2024 10:25 AM CDT Migue Escobar M.D. LAB BLOOD ADD-ON Final Resu lt Performing Organization Address [facility] Co de Phone Number [facility] [address] [facility] [place] [facility] [place] [address] [place] [address] * (ABNORMAL) AST (Aspartate Aminotransferase) (09/05/2024 11:19 AM CDT) Aspartate Aminotransferase (AST), S 841(H) 8 - 43 U/L 09/06/2024 11:17 AM CDT DTL Blood (Blood, Venous) 09/05/2024 11:19 AM CDT 09/06/2024 10:25 AM CDT Migue Escobar M.D. LAB BLOOD ADD-ON Final Resu lt Performing Organization Address City/[facility] Co de Phone Number [facility] [address] [facility] [place] [place] [facility] [place] [address] [place] [address] * Phosphatidylethanol Confirmation (08/23/2024 12:22 PM CDT) PEth 16:0/18:1 (POPEth) by LC-MS/MS <10 Cutoff: 10 ng/mL 08/25/2024 1:44 AM CDT [facility] Comment: Phosphatidylethanol (PEth) homologues result interpretation [...] Cutoff: 10 ng/mL 08/25/2024 1:44 AM CDT [facility] Comment: PEth 16:0/18:2 (PLPEth) Reference ranges are not well established PEth Interpretation Negative. 08/25 1:44 AM CDT [facility] Comment: ----ADDITIONAL INFORMATION---- This report is intended for use in clinical monitoring and management of patients. It is not intended for use in employment-related testing. This test was developed and its performance characteristics determined by [facility] in a manner consistent with CLIA requirements. This test has not been cleared or approved by the U.S. Food and Drug Administration. Blood (Blood, Venous) 08/23/2024 12:22 PM CDT 08/23/2024 2:46 PM CDT us Celena Rodriguez M.D. MSumaE. LAB BLOOD ADD-ON Fi nal Result [facility] [address] [place] [address] [facility] [address] [place] [address] [place] [address] * CT Abdomen Pelvis with IV Contrast [...] completed successfully: yes Complications: no immediate complications Result [facility] Atnonio Olivia M.D. IV THERAPY ORDERABLES Fin al Result * Lactate for Sepsis with Reflex (08/21/2024 6:47 PM CDT) Only the most recent of2 resultswithin the time period is included. Lactate, P 1.1 0.5 - 2.2 mmol/L 08/21/2024 7:07 PM CDT STMA Blood (Blood, Venous) 08/21/2024 6:47 PM CDT 08/21/2024 6:53 PM CDT Atnonio Olivia M.D. LAB BLOOD NON ADD-ON Lupe l Result [facility] [address] [place] [address], [facility] 200 [place] [address] * (ABNORMAL) Lipase (08/21/2024 6:47 PM CDT) Only the most recent of3 resultswithin the time period is included. Pathologist [facility] [place] Lipase, S 10(L) 13 - 60 U/L 08/21/2024 7: 41 PM CDT DTL Blood (Blood, Venous) 08/21/2024 6:47 PM CDT 08/21/2024 7:16 PM CDT Antonio Olivia M.D. LAB BLOOD ADD-ON Final Re sult Performing Organization Address City/[facility] [address]/ZIP Co de Phone Number [facility] 200 [place] [address] * Bacterial Culture, Aerobic + Susceptibility, Urine (08/19/2024 5:12 AM CDT) [facility] Urine Culture Organism present <10,000 cfu/mL, susceptibilities not performed per laboratory criteria. 08/20/2024 6:36 AM CDT DT Urine (Urine, Midstream) 08/19/2024 5:12 AM CDT 08/19/2024 5:49 AM CDT Comment:Specimen Source Site : Urine Lopez Rodrigues M.D., M.B.A. LAB MICROBIOLOGY - G ENERAL ORDERABLES Final Result Performing Organization Address City/[facility] [address]/ZIP Co de Phone Number [facility] 200 [place], [place] [address] [place] [address] * CT Abdomen Pelvis without IV Contrast [...] Hormone - Sensitive) (07/25/2024 1:33 PM CDT) Pathologist [facility] [place] TSH, Sensitive 0.5 0.3 - 4.2 mIU/L 07/25/2024 2:35 PM CDT DTL Blood (Blood, Venous) 07/25/2024 1:33 PM CDT 07/25/2024 1:55 PM CDT us Jose Luis Scott M.D. LAB BLOOD ADD-ON Final Resul t Performing Organization Address City/[facility] [address]/ZIP Co de Phone Number [facility] [address] [place] [address], [facility] [place] [address] * (ABNORMAL) Hemoglobin A1c (05/12/2024 6:06 AM VASC TECH) Pathologist [facility] [place] Hemoglobin A1c, B 7.5(H) 4.0 - 5.6 % 05/12/2024 7:52 AM VASC TECH DTL Comment: Hemoglobin A1c values greater than or equal to 6.5 percent are diagnostic for diabetes mellitus. Diagnosis should be confirmed by repeat testing. In diabetic patients, HbA1c goals should be discussed with healthcare provider. Blood (Blood, Venous) 05/12/2024 6:06 AM VASC TECH 05/12/2024 7:32 AM VASC TECH Andriy Wheeler APRN C.N.PSuma LAB BLOOD ADD-ON Final Result Performing Organization Address City/[facility] [address]/ZIP Co de Phone Number [facility] [address] [place], [place] [address] DTL [facility] [address] [place] [address] * (ABNORMAL) Lipid Panel (04/18/2024 7:02 AM VASC TECH) Triglycerides 131 mg/dL 04/18/2024 8:40 AM VASC TECH DTL Comment: ----REFERENCE VALUE---- Normal: <150 mg/dL Borderline High: 150-199 mg/dL High: 200-499 mg/dL Very High: > or =500 mg/dL Cholesterol, Total 89 mg/dL 2023 8:40 AM VASC TECH DTL Comment: ----REFERENCE VALUE---- Desirable: < 200 mg/dL Borderline High: 200 - 239 mg/dL High: > or = 240 mg/dL Cholesterol, LDL, Calculated 41 mg/dL 04/18/2024 8:40 AM VASC TECH DTL Comment: ----REFERENCE VALUE---- Desirable: <100 mg/dL Above Desirable: 100-129 mg/dL Borderline High: 130-159 mg/dL High: 160-189 mg/dL Very High: >=190 mg/dL ----ADDITIONAL INFORMATION---- LDL cholesterol calculated using the Hook/NIH equation. Cholesterol, HDL, S 25(L) >=50 mg/dL 04/18/2024 8:40 AM VASC TECH DTL Cholesterol, Non-HDL, Calculated 64 mg/dL 04/18/2024 8:40 AM VASC TECH DTL Comment: ----REFERENCE VALUE---- Desirable: <130 mg/dL Above Desirable: 130-159 mg/dL Borderline High: 160-189 mg/dL High: 190-219 mg/dL Very High: > or =220 mg/dL Fasting (8 HR or more) Unknown 04/18/2024 8:04 AM VASC TECH DTL Blood (Blood, Venous) 04/18/2024 7:02 AM VASC TECH 04/18/2024 7:42 AM VASC TECH us Elsie Salcedo P.A.-C., M.S. LAB BLOOD ADD-ON Final R esult [facility] 200 [place] [address], [facility] DTL [facility] 200 [place] [address] * Albumin, Random, Urine (2023 9:43 AM VASC TECH) Microalbumin <12.0 mg/L 2023 1:45 PM VASC TECH OWAT Comment:If clinically indica clayton, contact the lab for additional testing. Creatinine 257 mg/dL 2023 1:45 PM VASC TECH OWAT Albumin/Creatinine Ratio <5 <25 mg/g 2023 1:45 PM VASC TECH OWAT Comment: This ratio may not correspond with the reference range because one or both of the values used to calculate the ratio was above or below the quantification limits. Urine (Urine, Midstream) 2023 9:43 AM VASC TECH 2023 1:01 PM VASC TECH us Ana READ, P.A.-C. LAB URINE ORDERAB LES Final Result Performing Organization Address City/[facility] [address]/[facility] Co de Phone Number [facility] [address] [place] [address], [facility] OWAT [facility] in [place] [address] [place] [address] * HIV-1/-2 Ag and Ab Screen, Plasma (10/10/2022 11:31 AM CDT) HIV-1/-2 Ag and Ab Screen, P Negative Negative 10/10/2022 2:55 PM CDT [facility] Comment: Negative result does not rule out HIV infection. If exposure to HIV infection occurred <14 days ago, contact the laboratory to request addition of HIV-1/HIV-2 RNA detection, Plasma (HIP12). Blood (Blood, Venous) 10/10/2022 11:31 AM CDT 10/10/2022 2:13 PM CDT us Naima Tee M.D. LAB MICROBIOLOGY - BLOOD ORDER HAVREY Final Result [facility] [address] [place] [address] [facility] [address] [place] [address] * HPV with Genotyping, PCR, ThinPrep (06/25/2022 5:12 PM VASC TECH) HPV with Genotyping, ThinPrep, PCR Negative Negative 06/26/2022 2:35 PM VASC TECH MKTO Comment: Negative for high risk HPV by [...] correlated with patient's history, clinical presentation, and [employer] cytology report. 06/25/2022 5:12 PM VASC TECH 06/26/2022 7:33 AM VASC TECH Ana READ, P.A.-C. LAB MICROBIOLOGY - GENERAL ORDERABLES Final Result [facility] [address] [place] [address], [facility] [place] [address] * Hepatitis B Surface Antigen (03/12/2021 5:58 AM VASC TECH) HBs Antigen, S Nonreactive Nonreactive 03/12/20 7:43 AM VASC TECH MKTO Comment: Biotin has been identified by the fuse cup expander as a potential interfering substance. Higher concentrations of biotin may be found in multivitamins, hair/nail supplements, and workout supplements. If the result does not match clinical observations, repeat testing after patient refrains from the use of supplements for at least 12 hours. Blood (Blood, Peripheral Draw) 03/12/2021 5:58 AM VASC TECH 03/12/2021 6:10 AM VASC TECH us Ivan Lazo D.O. LAB MICROBIOLOGY - BLOOD OR DERABLES Final Result [facility] [address] [place] [address], [place] MKTO [facility] in [place] [address] [place] [address] from Last 3 Months or Most Recently Relevant to Health Maintenance Additional Health Concerns Infection Onset Date Last Indicated Protective Environment 10/10/2022 3 Insurance [facility] [place] [address] Advance Directives For more information, please contact: [phone] * Full Code (Latest Code Status on File) Date Activated Date Inactivated Comments 09/22/2024 8:23 PM 09/26/2024 4:53 PM Question Answer Comments Full Code: Discussed * Full Code Date Activated Date Inactivated Comments 09/06/2024 6:46 [...] Answer Comments Full Code: Discussed Care Teams Deputy Felony Clerk Relationship Specialty Start Date End Date Ana Red MPAS, P.A.-C. [address] [place], [place] [id number] Montoya [phone] PCP - General Internal Medicine 12/01/21 [facility] [place] [facility] 08/25/21
--- OUTSIDE RECORDS SUMMARY | 2024-10-04 05:55 | XMS_ITS | Encounter Summary ---
Author Organization [facility] Address [address] [place] [address] Care Team Providers Care Wildlife Refuge Manager Name Role Phone Ana Red, P.A.-C. Primary Care Pro vider Encounter Details Date Type Department Care Team (Late st Contact Info) Description 07/27/2024 Clinical Communication Department of Community Internal Medicine in [place], [place] [address] [place] [phone] Ana Red MPAS, P.A.-C. [address] [place] [phone] Social History Tobacco Use Types Packs/Day Years Used Date Smoking Tobacco: Former Cigarettes 1 - 10/12/2021 Passive Smoke Exposure: Never Smokeless Tobacco: Never Comments:No longer smoke Alcohol Use Standard Drinks/Week Comments Never 0 (1 standard drink = 0.6 oz pure alcohol) Havent had any alcohol in about a year or so. [facility] Utilities Answer Date Recorded In the past 12 months has [employer] gas, oil, or water [employer] threatened to shut off services in your [...] How often do you attend chur or druze services? Patient declined 02/10/2022 Do you belong [...] Answer Date Recorded PHQ-2 Score 0 08/11/2024 [facility] [place] of Occupat ional Health - Occupational Stress [...] your living situation today? [facility] 08/22/2024 Education Answer Date Recorded What is the highest level of school you have completed or the highest degree you have received? Associate degree: occupational, technical, or vocational program 07/16/2021 Comments No Sex and Gender Information Value Date Recorded Sex Assigned at Female 04/12/2021 7:39 PM PARTY PLAN SALES UNIT ADVISOR Legal Sex Female 7:53 PM PARTY PLAN SALES UNIT ADVISOR Gender Identity Female 04/12/2021 7:39 PM PARTY PLAN SALES UNIT ADVISOR Sexual Orientation Straight 04/12/2021 7: 39 PM PARTY PLAN SALES UNIT ADVISOR documented as of this encounter Miscellaneous [...] AM CDT Appointment Department of Radiology, [facility] in [place], [place] [address] [place] [phone] Marisabel Carpenter APRN, C.N.P., D.N.P. [address] [place] [phone] 10/05/2024 12:00 PM CDT Appointment Division of Pulmonary Medicine in [address] [phone] Edgar Montgomery M.B.B.S., M.S. [address] [place] [phone] 10/05/2024 2:45 PM CDT Infusion Department of Infusion Therapy in [address] [phone] Noreen Ansari P.A.-C., M.S. [address] [place] [phone] 10/10/2024 7:50 AM CDT Lab Department of Laboratory Medicine and Pathology, [facility] in [place], [place] [address] [place] [phone] Marisabel Carpenter APRN, C.N.P., D.N.P. [address] [place] [phone] 10/10/2024 8:00 AM CDT Lab Department of Laboratory Medicine and Pathology, [facility] in [place], [place] [address] [place] [address] Marisabel Carpenter APRN, C.N.P., D.N.P. [address] [place] [phone] 10/10/2024 8:30 AM CDT Nurse Only Ramirez diaz [facility] Transplantation and Clinical Regeneration in [place], [place] [address] [place] [address] Marisabel Carpenter APRN, C.N.P., D.N.P. [address] [place] [phone] 10/10/2024 9:20 AM CDT Appointment Department of Radiology, [place], [place] [address] [place] [address] Marisabel Carpenter APRN, C.N.P., D.N.P. [address] [place] [phone] 10/10/2024 9:45 AM CDT Appointment Department of Laboratory Medicine and Pathology, Replaced By [facility] in [place], [place] [address] [place] [address] Marisabel Carpenter APRN, C.N.P., D.N.P. [address] [place] [phone] 10/10/2024 1:30 PM CDT Appointment Department of Radiology, [facility] in [place], [place] [address] [place] [address] Marisabel Carpenter APRN, C.N.P., D.N.P. [address] [place] [phone] Discharge Disposition: Home or Self Care 10/10/2024 2:45 PM CDT Appointment Department of Radiology, [facility], in [place], [place] [address] [place] [address] Marisabel Carpenter APRN, C.N.PSuma, D.N.P. [address] [place] [phone] 10/11/2024 8:00 AM CDT [facility] in [place], [place] [address] [place] [address] Marisabel Carpenter APRN, C.NDayne, D.N.P. [address] [place] [phone] 10/11/2024 11:00 AM CDT [facility] in [place], [place] [address] [place] [address] Sree Devlin M.D. [address] [place] [phone] 10/11/2024 1:00 PM CDT Comprehensive Visit Department of Otorhinolaryngology in [place], [place] [address] [place] [phone] Randal Urbano, Shanita.Silvano.-C., M.S. [address] [place] [phone] 10/11/2024 2:00 PM CDT Office Visit Ramirez [facility] in [place], [place] [address] [place] [address] Hiro Murillo P.A.-C. [address] [place] [phone] 10/11/2024 4:00 PM CDT Comprehensive Visit Department of Dermatology in [place], [place] [address] [place] [address] Parul Martinez M.D. [address] [place] [phone] 10/12/2024 8:00 AM CDT Telemedicine [facility] Trans[facility] and Clinical Regeneration in [place], [place] [address] [place] [phone] Ervin Mckeon D.O. [address] [place] [phone] 11/01/2024 2:15 PM CDT Appointment Division of Pulmonary Medicine in [place], [place] [address] [place] [phone] Edgar Montgomery M.B.BSumaS., M.S. [address] [place] [phone] documented as of this encounter Visit Diagnoses Not on filedocumented in this encounter Additional Health Concerns Infection Onset Date Last Indicated Resolved Time Protective Environment 10/10/2022 10/10/2022 Assessment Noted Time PHQ-9 Depression Total Score: 4 06/18/19 24 12:20 PM PARTY PLAN SALES UNIT ADVISOR documented as of this encounter Care Teams Wildlife Refuge Manager Relationship Specialty Start Date End Date Ana Red MPAS, P.A.-C. [address] [place] [phone] PCP - General Internal Medicine 12/01/21 [facility] [place] [facility] 08/25/21 documented as of this encounter
--- OUTSIDE RECORDS SUMMARY | 2024-10-04 05:55 | XMS_ITS | Encounter Summary ---
Author Organization [facility] Address [address] [place] [address] Care Team Providers Care Heat Treating Bluer Name Role Phone Ana Red P.A.-C. Primary Care Pro vider Encounter Details Date Type Department Care Team (Latest Contact Info) Description 07/27/2024 Clinical Communication Division of Gastroenterology in [place], [place] [address] [place] [phone] Tyrone Kimble III, M.D., Ph.D. [address] [place] [phone] Social History Tobacco Use Types Packs/Day Years Used Date Smoking Tobacco: Former Cigarettes 1 - 10/12/2021 Passive Smoke Exposure: Never Smokeless Tobacco: Never Comments:No longer smoke Alcohol Use Standard Drinks/Week Comments Never 0 (1 standard drink = 0.6 oz pure alcohol) Havent had any alcohol in about a year or so. [facility] Utilities Answer Date Recorded In the past [...] week 02/10/2022 How often do you attend [facility] or hinduism services? Patient declined 02/10/2022 Do you belong to any clubs o r organizations such as amish groups, unions, fraternal [...] Answer Date Recorded PHQ-2 Score 0 08/11/2024 [facility] of Occupat ional Health - Occupational [...] today? I [facility] a [facility] live 08/22/2024 Education Answer Date Recorded What is the highest level of school you have completed or the highest degree you have received? Associate degree: occupational, technical, or vocational program 07/16/2021 Comments No Sex and Gender Information Value Date Recorded Sex Assigned at Female 04/12/2021 7:39 PM SHUFFLE BOARD OPERATOR Legal Sex Female 7:53 PM SHUFFLE BOARD OPERATOR Gender Identity Female 04/12/2021 7:39 PM SHUFFLE BOARD OPERATOR Sexual Orientation Straight 04/12/2021 7: 39 PM SHUFFLE BOARD OPERATOR documented as of this encounter Plan of Treatment Upcoming Encounters Date Type Department Care Team (Latest Contact Info) Description 10/05/2024 9:30 AM CDT Appointment Department of Radiology, [facility], in [place], [place] [address] [place] [address] Marisabel Carpenter APRN, C.N.P., D.N.P. 200 [place] [phone] 10/05/2024 12:00 PM CDT Appointment Division of Pulmonary Medicine in [place], [place] [address] [place] [phone] Edgar Montgomery M.B.B.S., M.S. [address] [place] [phone] 10/05/2024 2:45 PM CDT Infusion Department of Infusion Therapy in [place], [place] [address] [place] [address] Noreen Ansari P.A.-C., M.S. [address] [place] [phone] 10/10/2024 7:50 AM CDT Lab Department of Laboratory Medicine and Pathology, [facility] in [place], [place] [address] [place] [phone] Marisabel Carpenter APRN, C.N.P., D.N.P. [address] [place] [phone] 10/10/2024 8:00 AM CDT Lab Department of Laboratory Medicine and Pathology, [facility] in [place], [place] [address] [place] [phone] Marisabel Carpenter APRN, C.N.P., D.N.P. [address] [place] [phone] 10/10/2024 8:30 AM CDT Nurse Only [facility] in [place], [place] [address] [place] [address] Marisabel Carpenter APRN, C.N.P., D.N.P. [address] [place] [phone] 10/10/2024 9:20 AM CDT Appointment Department of Radiology, [facility] in [place], [place] [address] [place] [address] Marisabel Carpenter APRN, C.N.P., D.N.P. [address] [place] [phone] 10/10/2024 9:45 AM CDT Appointment Department of Laboratory Medicine and Pathology, [facility] in [place], [place] [address] [place] [address] Marisabel Carpenter APRN, C.N.P., D.N.P. [address] [place] [phone] 10/10/2024 1:30 PM CDT Appointment Department of Radiology, [facility] in [place], [place] [address] [place] [address] Marisabel Carpenter APRN, C.N.P., D.N.P. [address] [place] [phone] Discharge Disposition: Home or Self Care 10/10/2024 2:45 PM CDT Appointment Department of Radiology, [facility], in [place], [place] [address] [place] [address] Marisabel Carpenter APRN, C.N.P., D.N.P. [address] [place] [phone] 10/11/2024 8:00 AM CDT Office Visit Ramirez diaz [facility] for Transplantation and Clinical Regeneration in [place], [place] [address] [place] [address] Marisabel Carpenter APRN, C.N.P., D.N.P. [address] [place] [phone] 10/11/2024 11:00 AM CDT Comprehensive Visit [facility] for Transplantation and Clinical Regeneration in [place], [place] [address] [place] [address] Sree Devlin M.D. [address] [place] [phone] 10/11/2024 1:00 PM CDT Comprehensive Visit Department of Otorhinolaryngology in [place], [place] [address] [place] [phone] Randal Urbano P.A.-Katrin., M.S. [address] [place] [phone] 10/11/2024 2:00 PM CDT Office Visit [facility] Trans[facility] and Clinical Regeneration in [place], [place] [address] [place] [phone] Hiro Murillo P.A.-C. [address] [place] [phone] 10/11/2024 4:00 PM CDT Comprehensive Visit Department of Dermatology in [place], [place] [address] [place] [phone] Parul Martinez M.D. [address] [place] [phone] 10/12/2024 8:00 AM CDT Telemedicine [facility] for Transplantation and Clinical Regeneration in [place], [place] [address] [place] [address] Ervin Mckeon D.O. [address] [place] [phone] 11/01/2024 2:15 PM CDT Appointment Division of Pulmonary Medicine in [place], [place] [address] [place] [address] Edgar Montgomery M.B.B.S., M.S. [address] [place] [address] documented as of this encounter Visit Diagnoses Not on filedocumented in this encounter Additional Health Concerns Infection Onset Date Last Indicated Resolved Time Protective Environment 10/10/2022 10/10/2022 Assessment Noted Time PHQ-9 Depression Total Score: 4 06/18/19 24 12:20 PM SHUFFLE BOARD OPERATOR documented as of this encounter Care Teams Heat Treating Bluer Relationship Specialty Start Date End Date Ana Red MPAS, P.A.-C. [address] [place] [phone] PCP - General Internal Medicine 12/01/21 [facility] [place] [facility] 08/25/21 documented as of this encounter
--- OUTSIDE RECORDS SUMMARY | 2024-10-04 05:55 | XMS_ITS | Encounter Summary ---
Author Organization [facility] Address [address] [place] [address] Care Team Providers Care Slate Roofer Helper Name Role Phone Ana Red, P.A.-C. Primary Care Pro vider Reason for Visit * Reason Onset Date Comments Med Refill 07/27/2024 Encounter Details Date Type Department Care Team (Late st Contact Info) Description 07/27/2024 Refill Department of Community Internal Medicine in [place], [place] [address] [place] [phone] Ana Red MPAS, P.A.-C. [address] [place] [phone] Med Refill Social History Tobacco Use Types Packs/Day Years Used Date Smoking Tobacco: Former Cigarettes 1 - 10/12/2021 Passive Smoke Exposure: Never Smokeless Tobacco: Never Comments:No longer smoke Alcohol Use Standard Drinks/Week Comments Never 0 (1 standard drink = 0.6 oz pure alcohol) Havent had any alcohol in about a year or so. [facility] Utilities Answer Date Recorded In the past 12 months has [facility] electric, gas, oil, or water [employer] threatened to shut off services in your [...] Answer Date Recorded PHQ-2 Score 0 08/11/2024 [facility] [place] of Occupat ional Health - Occupational Stress [...] Sex Assigned at Female 04/12/2021 7:39 PM SEARCH STRATEGIST Legal Sex Female 7:53 PM SEARCH STRATEGIST Gender Identity Female 04/12/2021 7:39 PM SEARCH STRATEGIST Sexual Orientation Straight 04/12/2021 7: 39 PM SEARCH STRATEGIST documented as of this encounter Plan of Treatment Upcoming Encounters Date Type Department Care Team (Latest Contact Info) Description 10/05/2024 9:30 AM CDT Appointment Department of Radiology, [facility], in [place], [place] [address] [place] [address] Marisabel Carpenter APRN, C.N.P., D.N.P. [address] [place] [phone] 10/05/2024 12:00 PM CDT Appointment Division of Pulmonary Medicine in [place], [place] [address] [place] [address] Edgar Montgomery M.B.B.S., M.S. [address] [place] [phone] 10/05/2024 2:45 PM CDT Infusion Department of Infusion Therapy in [place], [place] [address] [place] [address] Noreen Ansari P.A.-C., M.S. [address] [place] [phone] 10/10/2024 7:50 AM CDT Lab Department of Laboratory Medicine and Pathology, [facility] in [place], [place] [address] [place] [address] Marisabel Carpenter APRN, C.N.P., D.N.P. [address] [place] [phone] 10/10/2024 8:00 AM CDT Lab Department of Laboratory Medicine and Pathology, [facility] in [place], [place] [address] [place] [address] Marisabel Carpenter APRN, Katrin.N.P., D.N.P. [address] [place] [phone] 10/10/2024 8:30 AM CDT Nurse Only [facility] in [place], [place] [address] [place] [address] Marisabel Carpenter APRN, C.N.PSuma, D.N.P. [address] [place] [phone] 10/10/2024 9:20 AM CDT Appointment Department of Radiology, [facility] in [place], [place] [address] [place] [address] Marisabel Carpenter APRN, C.N.P., D.N.P. [address] [place] [phone] 10/10/2024 9:45 AM CDT Appointment Department of Laboratory Medicine and Pathology, [place], [place] [address] [place] [phone] Marisabel Carpenter APRN, Katrin.N.PSuma, D.N.P. [address] [place] [phone] 10/10/2024 1:30 PM CDT Appointment Department of Radiology, [facility] in [place], [place] [address] [place] [address] Marisabel Carpenter APRN, C.N.PSuma, D.N.P. [address] [place] [phone] Discharge Disposition: Home or Self Care 10/10/2024 2:45 PM CDT Appointment Department of Radiology, [facility] in [place], [place] [address] [place] [address] Marisabel Carpenter APRN, C.N.P., D.N.P. [address] [place] [phone] 10/11/2024 8:00 AM CDT [facility] in [place], [place] [address] [place] [address] Marisabel Carpenter APRN, C.N.P., D.N.P. [address] [place] [phone] 10/11/2024 11:00 AM CDT Comprehensive Visit [facility] [place] Transplantation and Clinical Regeneration in [place], [place] [address] [place] [address] Sree Devlin M.D. [address] [place] [phone] 10/11/2024 1:00 PM CDT Comprehensive Visit Department of Otorhinolaryngology in [place], [place] [address] [place] [address] Randal Urbano, P.A.-C., M.S. [address] [place] [phone] 10/11/2024 2:00 PM CDT Office Visit [facility] [place] Transplantation and Clinical Regeneration in [place], [place] [address] [place] [address] Hiro Murillo P.A.-C. [address] [place] [phone] 10/11/2024 4:00 PM CDT Comprehensive Visit Department of Dermatology in [place], [place] [address] [place] [phone] Parul Martinez M.D. [address] [place] [phone] 10/12/2024 8:00 AM CDT Telemedicine [facility] [place] for Transplantation and Clinical Regeneration in [place], [place] [address] [place] [address] Ervin Mckeon D.O. [address] [place] [address] 11/01/2024 2:15 PM CDT Appointment Division of Pulmonary Medicine in [place], [place] [address] [place] [address] Edgar Montgomery M.B.B.S., M.S. [address] [place] [phone] documented as of this encounter Visit Diagnoses Diagnosis Chronic Pain Syndrome documented in this encounter Additional Health Concerns Infection Onset Date Last Indicated Resolved Time Protective Environment 10/10/2022 10/10/2022 Assessment Noted Time PHQ-9 Depression Total Score: 4 06/18/19 24 12:20 PM SEARCH STRATEGIST documented as of this encounter Care Teams Slate Roofer Helper Relationship Specialty Start Date End Date Ana Red MPAS, P.A.-C. [address] [place] [address] [place] [address] PCP - General Internal Medicine 12/01/21 [facility] [place] [facility] 08/25/21 documented as of this encounter
--- OUTSIDE RECORDS SUMMARY | 2024-10-04 05:56 | XMS_ITS | Encounter Summary ---
Author Organization [facility] Address [address] [place] [address] Care Team Providers Care Wood Grinder Operator Name Role Phone Ana Red P.A.-C. Primary Care Pro vider Encounter Details Date Type Department Care Team (Latest Contact Info) Description 08/16/2024 Clinical Communication Ramirez Navarrete [facility] for Transplantation and Clinical Regeneration in [place], [place] [address] [place] [phone] August, Sony Mendez R.N. [address] [place] [phone] Social History Tobacco Use Types Packs/Day Years Used Date Smoking Tobacco: Former Cigarettes 1 - 10/12/2021 Passive Smoke Exposure: Never Smokeless Tobacco: Never Comments:Smoked cigarettes f rom age 18-30 about Alcohol Use Standard Drinks/Week Comments Never 0 (1 standard drink = 0.6 oz pure alcohol) Havent had any alcohol in about a year or so. [facility] Utilities Answer Date Recorded In the [...] week 02/10/2022 How often do you attend [facility] or hoahaoism services? Patient declined 02/10/2022 Do you belong to any clubs o r organizations such as yazidi groups, unions, fraternal [...] Answer Date Recorded PHQ-2 Score 0 08/11/2024 [employer] of Occupat ional Health - Occupational Stress [...] Sex Assigned at Female 04/12/2021 7:39 PM TURBOGENERATOR OPERATOR Legal Sex Female 7:53 PM TURBOGENERATOR OPERATOR Gender Identity Female 04/12/2021 7:39 PM TURBOGENERATOR OPERATOR Sexual Orientation Straight 04/12/2021 7: 39 PM TURBOGENERATOR OPERATOR documented as of this encounter Plan of Treatment Upcoming Encounters Date Type Department Care Team (Latest Contact Info) Description 10/05/2024 9:30 AM CDT Appointment Department of Radiology, [facility], in [place], [place] [address] [place] [address] Marisabel Carpenter APRN, C.N.P., D.N.P. 200 [place] [phone] 10/05/2024 12:00 PM CDT Appointment Division of Pulmonary Medicine in [place], [place] [address] [place] [address] Edgar Montgomery M.B.B.S., M.S. [address] [place] [phone] 10/05/2024 2:45 PM CDT Infusion Department of Infusion Therapy in [place], [place] [address] [place] [address] Noreen Ansari P.A.-C., M.S. [address] [place] [phone] 10/10/2024 7:50 AM CDT Lab Department of Laboratory Medicine and Pathology, [facility] in [place], [place] [address] [place] [address] Marisabel Carpenter APRN, C.N.P., D.N.P. [address] [place] [phone] 10/10/2024 8:00 AM CDT Lab Department of Laboratory Medicine and Pathology, [facility] in [place], [place] [address] [place] [address] Marisabel Carpenter APRN, C.N.P., D.N.P. [address] [place] [phone] 10/10/2024 8:30 AM CDT Nurse Only [facility] in [place], [place] [address] [place] [address] Marisabel Carpenter APRN, C.N.P., D.N.P. [address] [place] [phone] 10/10/2024 9:20 AM CDT Appointment Department of Radiology, [facility] in [place], [place] [address] [place] [address] Marisabel Carpenter APRN, C.N.P., D.N.P. [address] [place] [phone] 10/10/2024 9:45 AM CDT [facility] [place] [place] [address] [place] [address] Marisabel Carpenter APRN, C.N.P., D.N.P. [address] [place] [phone] 10/10/2024 1:30 PM CDT Appointment Department of Radiology, [facility] in [place], [place] [address] [place] [address] Marisabel Carpenter APRN, C.N.P., D.N.P. [address] [place] [phone] Discharge Disposition: Home or Self Care 10/10/2024 2:45 PM CDT Appointment Department of Radiology, [facility], in [place], [place] [address] [place] [address] Marisabel Carpenter APRN, C.N.P., D.N.P. [address] [place] [phone] 10/11/2024 8:00 AM CDT Office Visit Ramirez diaz [facility] for Transplantation and Clinical Regeneration in [place], [place] [address] [place] [address] PintMarisabel APRN, C.N.P., D.N.P. [address] [place] [phone] 10/11/2024 11:00 AM CDT Comprehensive Visit [facility] for Transplantation and Clinical Regeneration in [place], [place] [address] [place] [phone] Sree Devlin M.D. [address] [place] [phone] 10/11/2024 1:00 PM CDT Comprehensive Visit Department of Otorhinolaryngology in [place], [place] [address] [place] [phone] Randal Urbano P.A.-C., M.S. [address] [place] [phone] 10/11/2024 2:00 PM CDT Office Visit [facility] for Transplantation and Clinical Regeneration in [place], [place] [address] [place] [phone] Hiro Murillo P.A.-C. [address] [place] [phone] 10/11/2024 4:00 PM CDT Comprehensive Visit Department of Dermatology in [place], [place] [address] [place] [phone] Parul Martinez M.D. [address] [place] [phone] 10/12/2024 8:00 AM CDT Telemedicine [facility] for Transplantation and Clinical Regeneration in [place], [place] [address] [place] [phone] Ervin Mckeon D.O. [address] [place] [phone] 11/01/2024 2:15 PM CDT Appointment Division of Pulmonary Medicine in [place], [place] [address] [place] [address] Edgar Montgomery M.B.B.S., M.S. [address] [place] [address] documented as of this encounter Visit Diagnoses Not on filedocumented in this encounter Additional Health Concerns Infection Onset Date Last Indicated Resolved Time Protective Environment 10/10/2022 10/10/2022 Assessment Noted Time PHQ-9 Depression Total Score: 4 08/12/19 25 3:31 PM CDT documented as of this encounter Care Teams Wood Grinder Operator Relationship Specialty Start Date End Date Ana Red MPAS, P.A.-C. [address] [place] [phone] PCP - General Internal Medicine 12/01/21 [facility] [place] [facility] 08/25/21 documented as of this encounter
--- OUTSIDE RECORDS SUMMARY | 2024-10-04 05:56 | XMS_ITS | Encounter Summary ---
Author Organization [facility] Address [address] [place] [address] Care Team Providers Care Director Public Service Name Role Phone Ana Red P.A.-C. Primary Care Pro vider Encounter Details Date Type Department Care Team (Latest Contact Info) Description 08/28/2024 Clinical Communication Ramirez Navarrete [facility] for Transplantation and Clinical Regeneration in [place], [place] [address] [place] [phone] August, Sony Mendez R.N. [address] [place] [phone] Social History Tobacco Use Types Packs/Day Years Used Date Smoking Tobacco: Former Cigarettes 1 - 10/12/2021 Passive Smoke Exposure: Never Smokeless Tobacco: Never Comments:Smoked cigarettes f rom age 18-30 about Alcohol Use Standard Drinks/Week Comments Never 0 (1 standard drink = 0.6 oz pure alcohol) Havent had any alcohol in about a year or so. [facility] Utilities Answer Date Recorded In [...] week 02/10/2022 How often do you attend [facility] or mosque services? Patient declined 02/10/2022 Do you belong to any clubs o r organizations such as uatsdin groups, unions, fraternal [...] Answer Date Recorded PHQ-2 Score 0 08/11/2024 [facility] of Occupat ional Health [...] have a [facility] place to live 09/23/2024 Education Answer Date Recorded What is the highest level of school you have completed or the highest degree you have received? Associate degree: occupational, technical, or vocational program 07/16/2021 Comments No Sex and Gender Information Value Date Recorded Sex Assigned at Female 04/12/2021 7:39 PM RESPIRATORY TECH Legal Sex Female 7:53 PM RESPIRATORY TECH Gender Identity Female 04/12/2021 7:39 PM RESPIRATORY TECH Sexual Orientation Straight 04/12/2021 7: 39 PM RESPIRATORY TECH documented as of this encounter Miscellaneous Notes * Telephone Encounter - Sony Carty RSumaN. - 08/28/2024 3:28 PM CDT SUBJECTIVE CHIEF [...] of Radiology, [facility] in [address] [phone] Marisabel Carpenter APRN, C.N.P., D.N.P. [address] [place] [phone] 10/05/2024 12:00 PM CDT Appointment Division of Pulmonary Medicine in [address] [phone] Edgar Montgomery M.B.B.S., M.S. [address] [place] [phone] 10/05/2024 2:45 PM CDT Infusion Department of Infusion Therapy in [address] [phone] Noreen Ansari, P.A.-C., M.S. [address] [place] [phone] 10/10/2024 7:50 AM CDT Lab Department of Laboratory Medicine and Pathology, [facility] in [place], [place] [address] [place] [phone] Marisabel Carpenter APRN, C.N.P., D.N.P. [address] [place] [phone] 10/10/2024 8:00 AM CDT Lab Department of Laboratory Medicine and Pathology, [place], [place] [address] [place] [address] Marisabel Carpenter APRN, C.N.P., D.N.P. [address] [place] [phone] 10/10/2024 8:30 AM CDT Nurse [facility] in [place], [place] [address] [place] [address] Marisabel Carpenter APRN, C.N.P., D.N.P. [address] [place] [phone] 10/10/2024 9:20 AM CDT [facility] [place], [place] [address] [place] [address] Marisabel Carpenter APRN, C.N.P., D.N.P. [address] [place] [phone] 10/10/2024 9:45 AM CDT Appointment Department of Laboratory Medicine and Pathology, [place], [place] [address] [place] [address] Marisabel Carpenter APRN, C.N.P., D.N.P. [address] [place] [phone] 10/10/2024 1:30 PM CDT Appointment Department of Radiology, [facility] in [place], [place] [address] [place] [address] Marisabel Carpenter APRN, C.N.P., D.N.P. [address] [place] [phone] Discharge Disposition: Home or Self Care 10/10/2024 2:45 PM CDT Appointment Department of Radiology, [facility], in [place], [place] [address] [place] [address] Marisabel Carpenter APRN C.N.PSuma, D.N.P. [address] [place] [phone] 10/11/2024 8:00 AM CDT Office [facility] in [place], [place] [address] [place] [address] Marisabel Carpenter APRN, C.N.P., D.N.P. [address] [place] [phone] 10/11/2024 11:00 AM CDT Comprehensive Visit [facility] for Transplantation and Clinical Regeneration in [place], [place] [address] [place] [phone] Sree Devlin M.D. [address] [place] [phone] 10/11/2024 1:00 PM CDT Comprehensive Visit Department of Otorhinolaryngology in [place], [place] [address] [place] [phone] Randal Urbano, P.A.-C., M.S. [address] [place] [phone] 10/11/2024 2:00 PM CDT Office Visit [facility] Transplantation and Clinical Regeneration in [place], [place] [address] [place] [phone] Hiro Murillo P.A.-C. [address] [place] [phone] 10/11/2024 4:00 PM CDT Comprehensive Visit Department of Dermatology in [place], [place] [address] [place] [phone] Parul Martinez M.D. [address] [place] [phone] 10/12/2024 8:00 AM CDT Telemedicine [facility] for Transplantation and Clinical Regeneration in [place], [place] [address] [place] [phone] Ervin Mckeon D.O. [address] [place] [phone] 11/01/2024 2:15 PM CDT Appointment Division of Pulmonary Medicine in [place], [place] [address] [place] [phone] Edgar Montgomery M.B.B.S., M.S. [address] [place] [phone] documented as of this encounter Results * (ABNORMAL) Tacrolimus, Trough (08/31/2024 8:20 AM CDT) [facility] Tacrolimus, Trough <1.0(L) 5.0-15.0 (Trough) ng/mL 08/31/2024 12:50 PM CDT [facility] Comment: ----ADDITIONAL INFORMATION---- Target steady-state trough concentrations vary depending on the type of transplant, concomitant immunosuppression, clinical/institutional protocols, and time post-transplant. Results should be interpreted in conjunction with this clinical information and any physical signs/symptoms of rejection/toxicity. Testing performed by Liquid Chromatography-Tandem Mass Spectrometry (LC-MS/MS). This test was developed and its performance characteristics determined by [facility] in a manner consistent with CLIA requirements. This test has not been cleared or approved by the U.S. Food and Drug Administration. Blood (Blood, Venous) 08/31/2024 8:20 AM CDT 08/31/2024 10:26 AM CDT us Noreen Ansari P.A.-C., M.S. LAB BLOOD NON A DD-ON Final Result [facility] [place] [address] [place] [address] [facility] [address] [place] [address] [place] [address] * (ABNORMAL) Comprehensive Metabolic Panel (08/31/2024 8:20 AM CDT) [facility] Potassium, S 4.5 3.6 - 5.2 mmol/L [...] M.S. LAB BLOOD ADD-O N Final Result [address] [address], [facility] [place] [address] * (ABNORMAL) CBC with Differential, Blood (08/31/2024 [...] ADD-O N Final Result Performing Organization Address City/[facility]/ZIP Co de Phone Number [facility] [address] [place] [facility] [address] [place] [address] * Bilirubin, Direct (08/31/2024 8:20 AM CDT) [facility] Signature Bilirubin, Direct, S 0.2 0.0 - 0.3 mg/dL 08/31/2024 9:56 AM CDT DTL Blood (Blood, Venous) 08/31/2024 8:20 AM CDT 08/31/2024 8:50 AM CDT us Noreen Asnari P.A.-C., M.S. 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 [address] [facility] [phone] PCP - General Internal Medicine 12/01/21 [facility] [place] [facility] 08/25/21 documented as of this encounter
--- OUTSIDE RECORDS SUMMARY | 2024-10-04 05:56 | XMS_ITS | Encounter Summary ---
Author Organization [facility] Address [address] [place] [address] Care Team Providers Care Steam Table Attendant Name Role Phone Ana Red, P.A.-C. Primary Care Pro vider Reason for Visit * Reason Onset Date Comments Med Refill 08/07/2024 Encounter Details Date Type Department Care Team (Late st Contact Info) Description 08/07/2024 Refill Department of Community Internal Medicine in [place], [place] [address] [place] [phone] Ana Red MPAS, P.A.-C. [address] [place] [phone] Med Refill Social History Tobacco Use Types Packs/Day Years Used Date Smoking Tobacco: Former Cigarettes 1 - 10/12/2021 Passive Smoke Exposure: Never Smokeless Tobacco: Never Comments:No longer smoke Alcohol Use Standard Drinks/Week Comments Never 0 (1 standard drink = 0.6 oz pure alcohol) Havent had any alcohol in about a year or so. [facility] Utilities Answer Date Recorded In the past 12 months has [facility] electric, gas, oil, or water [employer] threatened to shut off services in your [...] Answer Date Recorded PHQ-2 Score 0 08/11/2024 [facility] of Occupat ional Health - Occupational Stress [...] your living situation today? I have a [facility] place to live 08/22/2024 Education Answer Date Recorded What is the highest level of school you have completed or the highest degree you have received? Associate degree: occupational, technical, or vocational program 07/16/2021 Comments No Sex and Gender Information Value Date Recorded Sex Assigned at Female 04/12/2021 7:39 PM BRYOLOGIST Legal Sex Female 7:53 PM BRYOLOGIST Gender Identity Female 04/12/2021 7:39 PM BRYOLOGIST Sexual Orientation Straight 04/12/2021 7: 39 PM BRYOLOGIST documented as of this encounter Plan of Treatment Upcoming Encounters Date Type Department Care Team (Latest Contact Info) Description 10/05/2024 9:30 AM CDT Appointment Department of Radiology, [facility], in [place], [place] [address] [place] [address] Marisabel Carpenter APRN, C.N.P., D.N.P. [address] [place] [phone] 10/05/2024 12:00 PM CDT Appointment Division of Pulmonary Medicine in [place], [place] [address] [place] [address] Edgar Montgomery M.B.B.S., M.S. [address] [place] [phone] 10/05/2024 2:45 PM CDT Infusion Department of Infusion Therapy in [place], [place] [address] [place] [address] Noreen Ansari P.A.-C., M.S. [address] [place] [phone] 10/10/2024 7:50 AM CDT Lab Department of Laboratory Medicine and Pathology, [facility] in [place], [place] [address] [place] [address] Marisabel Carpenter APRN, C.N.P., D.N.P. [address] [place] [phone] 10/10/2024 8:00 AM CDT Lab Department of Laboratory Medicine and Pathology, [facility] in [place], [place] [address] [place] [address] Marisabel Carpenter APRN, Katrin.N.P., D.N.P. [address] [place] [phone] 10/10/2024 8:30 AM CDT [facility] in [place], [place] [address] [place] [address] Marisabel Carpenter APRN, C.N.PSuma, D.N.P. [address] [place] [phone] 10/10/2024 9:20 AM CDT Appointment Department of Radiology, [facility] in [place], [place] [address] [place] [address] Marisabel Carpenter APRN, C.N.P., D.N.P. [address] [place] [phone] 10/10/2024 9:45 AM CDT Appointment Department of Laboratory Medicine and Pathology, [place], [place] [address] [place] [phone] Marisabel Carpenter APRN, Katrin.N.PSuma, D.N.P. [address] [place] [phone] 10/10/2024 1:30 PM CDT Appointment Department of Radiology, [facility] in [place], [place] [address] [place] [address] Marisabel Carpenter APRN, C.N.PSuma, D.N.P. [address] [place] [phone] Discharge Disposition: Home or Self Care 10/10/2024 2:45 PM CDT Appointment Department of Radiology, [facility] in [place], [place] [address] [place] [address] Marisabel Carpenter APRN, C.N.P., D.N.P. [address] [place] [phone] 10/11/2024 8:00 AM CDT [facility] in [place], [place] [address] [place] [address] Marisabel Carpenter APRN, C.N.P., D.N.P. [address] [place] [phone] 10/11/2024 11:00 AM CDT Comprehensive Visit [facility] Transplantation and Clinical Regeneration in [place], [place] [address] [place] [address] Sree Devlin M.D. [address] [place] [phone] 10/11/2024 1:00 PM CDT Comprehensive Visit Department of Otorhinolaryngology in [place], [place] [address] [place] [address] Randal Urbano, P.A.-C., M.S. [address] [place] [phone] 10/11/2024 2:00 PM CDT Office Visit [facility] Transplantation and Clinical Regeneration in [place], [place] [address] [place] [address] Hiro Murillo P.A.-C. [address] [place] [phone] 10/11/2024 4:00 PM CDT Comprehensive Visit Department of Dermatology in [place], [place] [address] [place] [phone] Parul Martinez M.D. [address] [place] [phone] 10/12/2024 8:00 AM CDT Telemedicine [facility] [place], [facility] for Transplantation and Clinical Regeneration in [place], [place] [address] [place] [address] Ervin Mckeon D.O. [address] [place] [address] 11/01/2024 2:15 PM CDT Appointment Division of Pulmonary Medicine in [place], [place] [address] [place] [address] Edgar Montgomery M.B.B.S., M.S. [address] [place] [phone] documented as of this encounter Visit Diagnoses Not on filedocumented in this encounter Additional Health Concerns Infection Onset Date Last Indicated Resolved Time Protective Environment 10/10/2022 10/10/2022 Assessment Noted Time PHQ-9 Depression Total Score: 4 06/18/19 24 12:20 PM BRYOLOGIST documented as of this encounter Care Teams Steam Table Attendant Relationship Specialty Start Date End Date Ana Red MPAS, P.A.-C. [address] [place] [address] [place] [address] PCP - General Internal Medicine 12/01/21 [facility] [place] [facility] 08/25/21 documented as of this encounter
--- OUTSIDE RECORDS SUMMARY | 2024-10-04 05:56 | XMS_ITS | Encounter Summary ---
Author Organization [facility] Address [address] [place] [address] Care Team Providers Care Dubbing Machine Operator Name Role Phone Ana Red P.A.-C. Primary Care Pro vider Encounter Details Date Type Department Care Team (Late st Contact Info) Description 08/15/2024 Orders Only Division of Endocrinology in [place], [place] [address] [place] [phone] Catia Quintana, YARITZA, C.N.P. [address] [place] [phone] Social History Tobacco Use Types Packs/Day Years Used Date Smoking Tobacco: Former Cigarettes 1 - 10/12/2021 Passive Smoke Exposure: Never Smokeless Tobacco: Never Comments:Smoked cigarettes f rom age 18-30 about Alcohol Use Standard Drinks/Week Comments Never 0 (1 standard drink = 0.6 oz pure alcohol) Havent had any alcohol in about a year or so. [facility] Utilities Answer Date Recorded In the past 12 months has [employer], gas, oil, or water [employer] threatened to shut off services in your [...] r organizations such as shinto groups, unions, fraternal [...] Date Recorded PHQ-2 Score 0 08/11/2024 [facility] Only of Occupat ional Health - Occupational Stress [...] your living situation today? I have a [facility] place to live 08/22/2024 Education Answer Date Recorded What is the highest level of school you have completed or the highest degree you have received? Associate degree: occupational, technical, or vocational program 07/16/2021 Comments No Sex and Gender Information Value Date Recorded Sex Assigned at Female 04/12/2021 7:39 PM COMMISSIONS SPECIALIST Legal Sex Female 7:53 PM COMMISSIONS SPECIALIST Gender Identity Female 04/12/2021 7:39 PM COMMISSIONS SPECIALIST Sexual Orientation Straight 04/12/2021 7 :39 PM COMMISSIONS SPECIALIST documented as of this encounter Plan of Treatment Upcoming Encounters Date Type Department Care Team (Latest Contact Info) Description 10/05/2024 9:30 AM CDT Appointment Department of Radiology, [facility], in [place], [place] [address] [place] [address] Marisabel Carpenter APRN, C.N.P., D.N.P. [address] [place] [phone] 10/05/2024 12:00 PM CDT Appointment Division of Pulmonary Medicine in [place], [place] [address] [place] [address] Edgar Montgomery M.B.B.S., M.S. [address] [place] [phone] 10/05/2024 2:45 PM CDT Infusion Department of Infusion Therapy in [place], [place] [address] [place] [address] Noreen Ansari P.A.-C., M.S. [address] [place] [phone] 10/10/2024 7:50 AM CDT Lab Department of Laboratory Medicine and Pathology, [facility] in [place], [place] [address] [place] [address] Marisabel Carpenter APRN, C.N.P., D.N.P. [address] [place] [phone] 10/10/2024 8:00 AM CDT Lab Department of Laboratory Medicine and Pathology, [facility] in [place], [place] [address] [place] [address] Marisabel Carpenter APRN, C.N.PSuma, D.N.P. [address] [place] [phone] 10/10/2024 8:30 AM CDT Nurse Only [facility] in [place], [place] [address] [place] [address] Marisabel Carpenter APRN, C.N.PSuma, D.N.P. [address] [place] [phone] 10/10/2024 9:20 AM CDT Appointment Department of Radiology, [facility] in [place], [place] [address] [place] [phone] Marisabel Carpenter APRN, Katrin.N.PSuma, D.N.P. [address] [place] [phone] 10/10/2024 9:45 AM CDT Appointment Department of Laboratory Medicine and Pathology, [facility] in [place], [place] [address] [place] [phone] Marisabel Carpenter APRN, C.N.PSuma, D.N.P. [address] [place] [phone] 10/10/2024 1:30 PM CDT Appointment Department of Radiology, [facility] in [place], [place] [address] [place] [phone] Marisabel Carpenter APRN, C.N.PSuma, D.N.P. [address] [place] [phone] Discharge Disposition: Home or Self Care 10/10/2024 2:45 PM CDT Appointment Department of Radiology, [facility], in [place], [place] [address] [place] [phone] Marisabel Carpenter APRN, C.N.P., D.N.P. [address] [place] [phone] 10/11/2024 8:00 AM CDT Office Visit Ramirez Landon [facility] for Transplantation and Clinical Regeneration in [place], [place] [address] [place] [address] Marisabel Carpenter APRN, C.NDayne, D.N.P. [address] [place] [phone] 10/11/2024 11:00 AM CDT Comprehensive Visit [facility] for Transplantation and Clinical Regeneration in [place], [place] [address] [place] [address] Sree Devlin M.D. [address] [place] [phone] 10/11/2024 1:00 PM CDT Comprehensive Visit Department of Otorhinolaryngology in [place], [place] [address] [place], [place] [phone] Randal Urbano, P.A.-C., M.S. [address] [place] [phone] 10/11/2024 2:00 PM CDT Office Visit [facility] in [place], [place] [address] [place] [phone] Hiro Murillo P.A.-C. [address] [place] [phone] 10/11/2024 4:00 PM CDT Comprehensive Visit Department of Dermatology in [place], [place] [address] [place] [phone] Parul Martinez M.D. [address] [place] [phone] 10/12/2024 8:00 AM CDT Telemedicine [facility] Clinical [facility] in [place], [place] [address] [place] [address] Ervin Mckeon D.O. [address] [place] [phone] 11/01/2024 2:15 PM CDT Appointment Division of Pulmonary Medicine in [place], [place] [address] [place] [address] Edgar Montgomery M.B.B.S., M.S. [address] [place] [address] documented as of this encounter Visit Diagnoses Not on filedocumented in this encounter Additional Health Concerns Infection Onset Date Last Indicated Resolved Time Protective Environment 10/10/2022 10/10/2022 Assessment Noted Time PHQ-9 Depression Total Score: 4 08/12/19 25 3:31 PM CDT documented as of this encounter Care Teams Dubbing Machine Operator Relationship Specialty Start Date End Date Ana Red MPAS, P.A.-C. [address] [place] [address] [place] [phone] PCP - General Internal Medicine 12/01/21 [facility] [place] [facility] 08/25/21 documented as of this encounter
--- OUTSIDE RECORDS SUMMARY | 2024-10-04 05:56 | XMS_ITS | Encounter Summary ---
Author Organization [facility] Address [address] [place] [address] Care Team Providers Care Customer Relations Coordinator Name Role Phone Ana Red P.A.-C. Primary Care Pro vider Encounter Details Date Type Department Care Team (Late st Contact Info) Description 08/25/2024 Orders Only Ramirez diaz [facility] for Transplantation and Clinical Regeneration in [place], [place] [address] [place] [phone] Xu Joel Jr., M.D. [address] [place] [phone] Rejection Graft Acute (Primary Dx) Social History Tobacco Use Types Packs/Day Years Used Date Smoking Tobacco: Former Cigarettes 1 - 10/12/2021 Passive Smoke Exposure: Never Smokeless Tobacco: Never Comments:Smoked cigarettes f rom age 18-30 about Alcohol Use Standard Drinks/Week Comments Never 0 (1 standard drink = 0.6 oz pure alcohol) Havent had any alcohol in about a year or so. [facility] Utilities Answer Date Recorded [...] your living situation today? I have a [facility] place to live 09/09/2024 Education Answer Date Recorded What is the highest level of school you have completed or the highest degree you have received? Associate degree: occupational, technical, or vocational program 07/16/2021 Comments No Sex and Gender Information Value Date Recorded Sex Assigned at Female 04/12/2021 7:39 PM COMPOSITION BOARD PRESS OPERATOR Legal Sex Female 7:53 PM COMPOSITION BOARD PRESS OPERATOR Gender Identity Female 04/12/2021 7:39 PM COMPOSITION BOARD PRESS OPERATOR Sexual Orientation Straight 04/12/2021 7: 39 PM COMPOSITION BOARD PRESS OPERATOR documented as of this encounter Plan of Treatment Upcoming Encounters Date Type Department Care Team (Latest Contact Info) Description 10/05/2024 9:30 AM CDT Appointment Department of Radiology, [facility], in [place], [place] [address] [place] [address] PinMarisabel lara APRN, C.N.PSuma, D.N.P. [address] [place] [phone] 10/05/2024 12:00 PM CDT Appointment Division of Pulmonary Medicine in [place], [place] [address] [place] [address] Edgar Montgomery M.B.B.S., M.S. [address] [place] [phone] 10/05/2024 2:45 PM CDT Infusion Department of Infusion Therapy in [place], [place] [address] [place] [phone] Noreen Ansari P.A.-C., M.S. [address] [place] [phone] 10/10/2024 7:50 AM CDT Lab Department of Laboratory Medicine and Pathology, [facility] in [place], [place] [address] [place] [address] Marisabel Carpenter APRN, C.N.P., D.N.P. [address] [place] [phone] 10/10/2024 8:00 AM CDT Lab Department of Laboratory Medicine and Pathology, [facility] in [place], [place] [address] [place] [address] Marisabel Carpenter APRN, Katrin.N.P., D.N.P. [address] [place] [phone] 10/10/2024 8:30 AM CDT Nurse [facility] in [place], [place] [address] [place] [address] Marisabel Carpenter APRN, Katrin.N.PSuma, D.N.P. [address] [place] [phone] 10/10/2024 9:20 AM CDT Appointment Department of Radiology, [facility] in [place], [place] [address] [place] [address] Marisabel Carpenter APRN, C.N.P., D.N.P. [address] [place] [phone] 10/10/2024 9:45 AM CDT Appointment Department of Laboratory Medicine and Pathology, [facility] in [place], [place] [address] [place] [phone] Marisabel Carpenter APRN, Katrin.N.PSuma, D.N.P. [address] [place] [phone] 10/10/2024 1:30 PM CDT Appointment Department of Radiology, [facility] in [place], [place] [address] [place] [address] Marisabel Carpenter APRN, Katrin.N.PSuma, D.N.P. [address] [place] [phone] Discharge Disposition: Home or Self Care 10/10/2024 2:45 PM CDT Appointment Department of Radiology, [facility] in [place], [place] [address] [place] [address] Marisabel Carpenter APRN, C.N.P., D.N.P. [address] [place] [phone] 10/11/2024 8:00 AM CDT [facility] in [place], [place] [address] [place] [address] Marisabel Carpenter APRN, C.NSumaP., D.N.P. [address] [place] [phone] 10/11/2024 11:00 AM CDT Comprehensive Visit [facility] in [place], [place] [address] [place] [address] Sree Devlin M.D. [address] [place] [phone] 10/11/2024 1:00 PM CDT Comprehensive Visit Department of Otorhinolaryngology in [place], [place] [address] [place] [address] Randal Urbano, Shanita.Silvano.-C., M.S. [address] [place] [phone] 10/11/2024 2:00 PM CDT Office Visit [facility] for Transplantation and Clinical Regeneration in [place], [place] [address] [place] [address] Hiro Murillo P.A.-C. [address] [place] [phone] 10/11/2024 4:00 PM CDT Comprehensive Visit Department of Dermatology in [place], [place] [address] [place] [phone] Parul Martinez M.D. [address] [place] [phone] 10/12/2024 8:00 AM CDT Telemedicine [facility] for Transplantation and Clinical Regeneration in [place], [place] [address] [place] [address] Ervin Mckeon D.O. [address] [place] [address] 11/01/2024 2:15 PM CDT Appointment Division of Pulmonary Medicine in [place], [place] [address] [place] [phone] Edgar Montgomery M.B.B.S., M.S. [address] [place] [phone] documented as of this encounter Visit Diagnoses Diagnosis Rejection Graft Acute- Primary documented in this encounter Additional Health Concerns Infection Onset Date Last Indicated Resolved Time Protective Environment 10/10/2022 10/10/2022 Assessment Noted Time PHQ-9 Depression Total Score: 4 08/12/19 25 3:31 PM CDT documented as of this encounter Care Teams Customer Relations Coordinator Relationship Specialty Start Date End Date Ana Red MPAS, P.A.-C. [address] [place] [address] [place] [address] PCP - General Internal Medicine 12/01/21 [facility] [place] [facility] 08/25/21 documented as of this encounter
--- OUTSIDE RECORDS SUMMARY | 2024-10-04 05:56 | XMS_ITS | Encounter Summary ---
Author Organization [facility] Address [address] [place] [address] Care Team Providers Care Training Associate Name Role Phone Ana Red P.A.-C. Primary Care Pro vider Reason for Visit * Reason Onset Date Comments Reschedule 08/18/2024 RESCHEDULE APPT Encounter Details Date Type Department Care Team (Latest Contact Info) Description 08/18/2024 Clinical Communication Division of Pulmonary Medicine in [place], [place] [address] [place] [phone] Ben Dickson, YARITZA, C.N.P. [address] [place] [phone] Reschedule (RESCHEDULE APPT) Social History Tobacco Use [...] has e electric, gas, oil, or water [employer] threatened to shut off services in your [...] week 02/10/2022 How often do you attend [facility] or jew services? Patient declined 02/10/2022 Do you belong to any clubs o r organizations such as bahai groups, unions, fraternal [...] Date Recorded PHQ-2 Score 0 08/11/2024 [facility] [place] of Occupat ional Health - Occupational Stress [...] your living situation today? I have a [facility] place to live 09/09/2024 Education Answer Date Recorded What is the highest level of school you have completed or the highest degree you have received? Associate degree: occupational, technical, or vocational program 07/16/2021 Comments No Sex and Gender Information Value Date Recorded Sex Assigned at Female 04/12/2021 7:39 PM TOE LASTER Legal Sex Female 7:53 PM TOE LASTER Gender Identity Female 04/12/2021 7:39 PM TOE LASTER Sexual Orientation Straight 04/12/2021 7: 39 PM TOE LASTER documented as of this encounter Plan of Treatment Upcoming Encounters Date Type Department Care Team (Latest Contact Info) Description 10/05/2024 9:30 AM CDT Appointment Department of Radiology, [facility], in [place], [place] [address] [place] [address] Marisabel Carpenter APRN, C.N.P., D.N.P. [address] [place] [phone] 10/05/2024 12:00 PM CDT Appointment Division of Pulmonary Medicine in [place], [place] [address] [place] [address] Edgar Montgomery M.B.B.S., M.S. [address] [place] [phone] 10/05/2024 2:45 PM CDT Infusion Department of Infusion Therapy in [place], [place] [address] [place] [address] Noreen Ansari P.A.-C., M.S. [address] [place] [phone] 10/10/2024 7:50 AM CDT Lab Department of Laboratory Medicine and Pathology, [facility] in [place], [place] [address] [place] [address] Marisabel Carpenter APRN, C.N.P., D.N.P. [address] [place] [phone] 10/10/2024 8:00 AM CDT Lab Department of Laboratory Medicine and Pathology, [facility] in [place], [place] [address] [place] [address] Marisabel Carpenter APRN, C.N.P., D.N.P. [address] [place] [phone] 10/10/2024 8:30 AM CDT Nurse Only Ramirez Nguyen [place] [facility] in [place], [place] [address] [place] [address] Marisabel Carpenter APRN, C.N.P., D.N.P. [address] [place] [phone] 10/10/2024 9:20 AM CDT Appointment Department of Radiology, [place], [place] [address] [place] [address] Marisabel Carpenter APRN, C.N.P., D.N.P. [address] [place] [phone] 10/10/2024 9:45 AM CDT Appointment Department of [place] [address] [place] [address] Marisabel Carpenter APRN, C.N.P., D.N.P. [address] [place] [phone] 10/10/2024 1:30 PM CDT Appointment Department of Radiology, [facility] in [place], [place] [address] [place] [address] Marisabel Carpenter APRN, C.N.P., D.N.P. [address] [place] [phone] Discharge Disposition: Home or Self Care 10/10/2024 2:45 PM CDT Appointment Department of Radiology, [place], [place] [address] [place] [address] Marisabel Carpenter APRN, C.N.P., D.N.P. [address] [place] [phone] 10/11/2024 8:00 AM CDT Office Visit [facility] Transplantation and Clinical Regeneration in [place], [place] [address] [place] [phone] Marisabel Carpenter APRN, LowellNSumaPSuma, D.N.P. [address] [place] [phone] 10/11/2024 11:00 AM CDT Comprehensive Visit [facility] Transplantation and Clinical Regeneration in [place], [place] [address] [place] [phone] Sree Devlin M.D. [address] [place] [phone] 10/11/2024 1:00 PM CDT Comprehensive Visit Department of Otorhinolaryngology in [place], [place] [address] [place] [phone] Randal Urbano, P.Silvano.-C., M.S. [address] [place] [phone] 10/11/2024 2:00 PM CDT Office Visit [facility] Transplantation and Clinical Regeneration in [place], [place] [address] [place] [phone] Hiro Murillo P.A.-C. [address] [place] [phone] 10/11/2024 4:00 PM CDT Comprehensive Visit Department of Dermatology in [place], [place] [address] [place] [phone] Parul Martinez M.D. [address] [place] [phone] 10/12/2024 8:00 AM CDT Telemedicine [facility] Transplantation and Clinical Regeneration in [place], [place] [address] [place] [address] Ervin Mckeon D.O. [address] [place] [address] 11/01/2024 2:15 PM CDT Appointment Division of Pulmonary Medicine in [place], [place] [address] [place] [address] Edgar Montgomery M.B.BSumaS., M.S. [address] [place] [address] documented as of this encounter Visit Diagnoses Not on filedocumented in this encounter Additional Health Concerns Infection Onset Date Last Indicated Resolved Time Protective Environment 10/10/2022 10/10/2022 Assessment Noted Time PHQ-9 Depression Total Score: 4 08/12/19 25 3:31 PM CDT documented as of this encounter Care Teams Training Associate Relationship Specialty Start Date End Date Ana Red MPAS, P.A.-C. [address] [place] [phone] PCP - General Internal Medicine 12/01/21 [facility] [place] [facility] 08/25/21 documented as of this encounter
--- OUTSIDE RECORDS SUMMARY | 2024-10-04 05:56 | XMS_ITS | Encounter Summary ---
Author Organization [facility] Address [address] [place] [address] Care Team Providers Care Condominium Manager Name Role Phone Ana Red P.A.-C. Primary Care Pro vider Reason for Referral * Transplant (Routine) - Closed Specialty Diagnoses / Procedures Referred By Meir lara Referred To Contact Transplant Diagnoses Transplant Liver (HCC) Medication Therapy Chcf Not Anticoagulant Xu Joel Jr., M.D. [address] [place] [phone] Phone: tel: fax: [facility] Referral ID Status Reason Start Date Expiration Date Visits Re quested Visits Authorized [id number] Closed 08/25/2024 02/24/2026 1 1 Encounter Details Date Type Department Care Team (Latest Contact Info) Description 08/25/2024 [facility] in [place], [place] [address] [place] [phone] Sony Carty R.N. [address] [place] [phone] Transplant Liver (HCC) (Primary Dx); Medication Therapy Chcf Not Anticoagulant Social History Tobacco Use Types Packs/Day Years Used Date Smoking Tobacco: Former Cigarettes 1 - 10/12/2021 Passive Smoke Exposure: Never Smokeless Tobacco: Never Comments:Smoked cigarettes f rom age 18-30 about Alcohol Use Standard Drinks/Week Comments Never 0 (1 standard drink = 0.6 oz pure alcohol) Havent had any alcohol in about a year or so. [facility] [employer] Answer Date Recorded In the past 12 months has e [employer], gas, oil, or water [employer] threatened to shut off services in your [...] week 02/10/2022 How often do you attend [facility] or quaker services? Patient declined 02/10/2022 Do [...] PHQ-2 Score 0 08/11/2024 [facility] [place] of Occupat ional Health - Occupational Stress [...] Sex Assigned at Female 04/12/2021 7:39 PM RETAIL SERVICES PROFESSIONAL Legal Sex Female 7:53 PM RETAIL SERVICES PROFESSIONAL Gender Identity Female 04/12/2021 7:39 PM RETAIL SERVICES PROFESSIONAL Sexual Orientation Straight 04/12/2021 7: 39 PM RETAIL SERVICES PROFESSIONAL documented as of this encounter Plan of Treatment Upcoming Encounters Date Type Department Care Team (Latest Contact Info) Description 10/05/2024 9:30 AM CDT Appointment Department of Radiology, [facility] in [address] [phone] Marisabel Carpenter APRN, C.N.P., D.N.P. [address] [place] [phone] 10/05/2024 12:00 PM CDT Appointment Division of Pulmonary Medicine in [address] [phone] Edgar Montgomery M.B.B.S., M.S. [address] [place] [phone] 10/05/2024 2:45 PM CDT Infusion Department of Infusion Therapy in [address] [address] Noreen Ansari, P.A.-C., M.S. [address] [place] [phone] 10/10/2024 7:50 AM CDT Lab Department of Laboratory Medicine and Pathology, [facility], in [address] [phone] Marisabel Carpenter APRN, C.N.P., D.N.P. [address] [place] [phone] 10/10/2024 8:00 AM CDT Lab Department of Laboratory Medicine and Pathology, [facility] in [place], [place] [address] [place] [address] Marisabel Carpenter APRN, C.N.PSuma, D.N.P. [address] [place] [phone] 10/10/2024 8:30 AM CDT Nurse [facility] in [place], [place] [address] [place] [address] Marisabel Carpenter APRN, C.N.PSuma, D.N.P. [address] [place] [phone] 10/10/2024 9:20 AM CDT [facility] [place] [place] [address] [place] [address] Marisabel Carpenter APRN, C.N.PSuma, D.N.P. [address] [place] [phone] 10/10/2024 9:45 AM CDT Appointment Department of Laboratory Medicine and Pathology, [facility] in [place], [place] [address] [place] [address] Marisabel Carpenter APRN, C.N.P., D.N.P. [address] [place] [phone] 10/10/2024 1:30 PM CDT Appointment Department of Radiology, [facility] in [place], [place] [address] [place] [address] Marisabel Carpenter APRN, Katrin.N.P., D.N.P. [address] [place] [phone] Discharge Disposition: Home or Self Care 10/10/2024 2:45 PM CDT Appointment Department of Radiology, [facility], in [place], [place] [address] [place] [address] Marisabel Carpenter APRN, C.N.P., D.N.P. [address] [place] [phone] 10/11/2024 8:00 AM CDT [facility] in [place], [place] [address] [place] [address] Marisabel Carpenter APRN, Katrin.N.P., D.N.P. [address] [place] [phone] 10/11/2024 11:00 AM CDT Comprehensive [facility] in [place], [place] [address] [place] [address] Sree Devlin M.D. [address] [place] [phone] 10/11/2024 1:00 PM CDT Comprehensive Visit Department of Otorhinolaryngology in [place], [place] [address] [place] [phone] Randal Urbano, P.A.-C., M.S. [address] [place] [phone] 10/11/2024 2:00 PM CDT Office Visit [facility] for Transplantation and Clinical Regeneration in [place], [place] [address] [place] [phone] Hiro Murillo P.A.-C. [address] [place] [phone] 10/11/2024 4:00 PM CDT Comprehensive Visit Department of Dermatology in [place], [place] [address] [place] [address] Parul Martinez M.D. [address] [place] [phone] 10/12/2024 8:00 AM CDT Telemedicine [facility] for Transplantation and Clinical Regeneration in [place], [place] [address] [place] [address] Ervin Mckeon D.O. [address] [place] [phone] 11/01/2024 2:15 PM CDT Appointment Division of Pulmonary Medicine in [place], [place] [address] [place] [phone] Edgar Montgomery M.B.BSumaS., M.S. [address] [place] [phone] Scheduled Referrals Name Type Priority Associated Diagnoses Orde r Schedule Transplant Liver office visit (clinic) Outpatient Referral Routine Transplant Liver (HCC) Medication Therapy Chargeback Specialist Not Anticoagulant Expected: 09/01/2024, Expires: 11/24/2025 documented as of this encounter Visit Diagnoses Diagnosis Transplant Liver (HCC)- Primary Medication Therapy Chcf Not Anticoagulant documented in this encounter Additional Health Concerns Infection Onset Date Last Indicated Resolved Time Protective Environment 10/10/2022 10/10/2022 Assessment Noted Time PHQ-9 Depression Total Score: 4 08/12/19 25 3:31 PM CDT documented as of this encounter Care Teams Condominium Manager Relationship Specialty Start Date End Date Ana Red MPAS, P.A.-C. [address] [facility] [place] [address] PCP - General Internal Medicine 12/01/21 [facility] [place] [facility] 08/25/21 documented as of this encounter
--- OUTSIDE RECORDS SUMMARY | 2024-10-04 05:57 | XMS_ITS | Encounter Summary ---
Author Organization [facility] Address [address] [place] [address] Care Team Providers Care Film And Video Graphics Designer Name Role Phone Ana Red, P.A.-C. Primary Care Pro vider Reason for Visit * Reason Onset Date Comments Med Refill 07/20/2024 Encounter Details Date Type Department Care Team (Late st Contact Info) Description 07/20/2024 Refill Department of Community Internal Medicine in [place], [place] [address] [place] [phone] Ana Red MPAS, P.A.-C. [address] [place] [phone] Med Refill Social History Tobacco Use Types [...] Recorded In the past 12 months has [facility] electric, gas, oil, or water [employer] threatened to shut off services in your [...] Answer Date Recorded PHQ-2 Score 0 08/11/2024 [facility] [place] of Occupat ional Health - Occupational Stress [...] your living situation today? I have a [facility] place to live 07/25/2024 Education Answer Date Recorded What is the highest level of school you have completed or the highest degree you have received? Associate degree: occupational, technical, or vocational program 07/16/2021 Comments No Sex and Gender Information Value Date Recorded Sex Assigned at Female 04/12/2021 7:39 PM BRUSHING MACHINE OPERATOR Legal Sex Female 7:53 PM BRUSHING MACHINE OPERATOR Gender Identity Female 04/12/2021 7:39 PM BRUSHING MACHINE OPERATOR Sexual Orientation Straight 04/12/2021 7: 39 PM BRUSHING MACHINE OPERATOR documented as of this encounter Plan of Treatment Upcoming Encounters Date Type Department Care Team (Latest Contact Info) Description 10/05/2024 9:30 AM CDT Appointment Department of Radiology, [facility], in [place], [place] [address] [place] [address] Marisabel Carpenter APRN, C.N.P., D.N.P. [address] [place] [phone] 10/05/2024 12:00 PM CDT Appointment Division of Pulmonary Medicine in [place], [place] [address] [place] [address] Edgar Montgomery M.B.B.S., M.S. [address] [place] [phone] 10/05/2024 2:45 PM CDT Infusion Department of Infusion Therapy in [place], [place] [address] [place] [address] Noreen Ansari P.A.-C., M.S. [address] [place] [phone] 10/10/2024 7:50 AM CDT Lab Department of Laboratory Medicine and Pathology, [facility] in [place], [place] [address] [place] [address] Marisabel Carpenter APRN, C.N.P., D.N.P. [address] [place] [phone] 10/10/2024 8:00 AM CDT Lab Department of Laboratory Medicine and Pathology, [facility] in [place], [place] [address] [place] [address] Marisabel Carpenter APRN, Katrin.N.P., D.N.P. [address] [place] [phone] 10/10/2024 8:30 AM CDT [facility] in [place], [place] [address] [place] [address] Marisabel Carpenter APRN, C.N.PSuma, D.N.P. [address] [place] [phone] 10/10/2024 9:20 AM CDT Appointment Department of Radiology, [facility] in [place], [place] [address] [place] [address] Marisabel Carpenter APRN, C.N.P., D.N.P. [address] [place] [phone] 10/10/2024 9:45 AM CDT Appointment Department of Laboratory Medicine and Pathology, [place], [place] [address] [place] [phone] Marisabel Carpenter APRN, Katrin.N.PSuma, D.N.P. [address] [place] [phone] 10/10/2024 1:30 PM CDT Appointment Department of Radiology, [facility] in [place], [place] [address] [place] [address] Marisabel Carpenter APRN, C.N.PSuma, D.N.P. [address] [place] [phone] Discharge Disposition: Home or Self Care 10/10/2024 2:45 PM CDT Appointment Department of Radiology, [facility] in [place], [place] [address] [place] [address] Marisabel Carpenter APRN, C.N.P., D.N.P. [address] [place] [phone] 10/11/2024 8:00 AM CDT [facility] in [place], [place] [address] [place] [address] Marisabel Carpenter APRN, C.N.P., D.N.P. [address] [place] [phone] 10/11/2024 11:00 AM CDT Comprehensive Visit [facility] Transplantation and Clinical Regeneration in [place], [place] [address] [place] [address] Sree Devlin M.D. [address] [place] [phone] 10/11/2024 1:00 PM CDT Comprehensive Visit Department of Otorhinolaryngology in [place], [place] [address] [place] [address] Randal Urbano, P.A.-C., M.S. [address] [place] [phone] 10/11/2024 2:00 PM CDT Office Visit [facility] Transplantation and Clinical Regeneration in [place], [place] [address] [place] [address] Hiro Murillo P.A.-C. [address] [place] [phone] 10/11/2024 4:00 PM CDT Comprehensive Visit Department of Dermatology in [place], [place] [address] [place] [phone] Parul Martinez M.D. [address] [place] [phone] 10/12/2024 8:[address] [facility] in [place], [place] [address] [place] [address] Ervin Mckeon D.O. [address] [place] [address] 11/01/2024 2:15 PM CDT Appointment Division of Pulmonary Medicine in [place], [place] [address] [place] [address] Edgar Montgomery M.B.B.S., M.S. [address] [place] [phone] documented as of this encounter Visit Diagnoses Diagnosis Chronic Pain Syndrome documented in this encounter Additional Health Concerns Infection Onset Date Last Indicated Resolved Time Protective Environment 10/10/2022 10/10/2022 Assessment Noted Time PHQ-9 Depression Total Score: 4 06/18/19 24 12:20 PM BRUSHING MACHINE OPERATOR documented as of this encounter Care Teams Film And Video Graphics Designer Relationship Specialty Start Date End Date Ana Red MPAS, P.A.-C. [address] [place] [address] [place] [address] PCP - General Internal Medicine 12/01/21 [facility] [place] [facility] 08/25/21 documented as of this encounter
--- OUTSIDE RECORDS SUMMARY | 2024-10-04 05:57 | XMS_ITS | Encounter Summary ---
Author Organization [facility] Address [address] [place] [address] Care Team Providers Care Cnc Manufacturing Engineer Name Role Phone Ana Red P.A.-C. Primary Care Pro vider Encounter Details Date Type Department Care Team (Late st Contact Info) Description 09/04/2024 Orders Only Ramirez diaz [facility] for Transplantation and Clinical Regeneration in [place], [place] [address] [place] [phone] Hiro Murillo P.A.-CSuma [address] [place] [phone] Social History Tobacco Use Types Packs/Day Years Used Date Smoking Tobacco: Former Cigarettes 1 - 10/12/2021 Passive Smoke Exposure: Never Smokeless Tobacco: Never Comments:Smoked cigarettes f rom age 18-30 about Alcohol Use Standard Drinks/Week Comments Never 0 (1 standard drink = 0.6 oz pure alcohol) Havent had any alcohol in about a year or so. [facility] Utilities Answer Date Recorded In the past 12 months has e electric, gas, oil, or water [employer] threatened to shut off services in your [...] How often do you attend chur or jew services? Patient declined 02/10/2022 Do [...] Answer Date Recorded PHQ-2 Score 0 08/11/2024 [facility] [place] of Occupat ional Health - Occupational Stress [...] your living situation today? I have a [facility] place [facility] live 09/09/2024 Education Answer Date Recorded What is the highest level of school you have completed or the highest degree you have received? Associate degree: occupational, technical, or vocational program 07/16/2021 Comments No Sex and Gender Information Value Date Recorded Sex Assigned at Female 04/12/2021 7:39 PM MAINTENANCE SHOP WELDER Legal Sex Female 7:53 PM MAINTENANCE SHOP WELDER Gender Identity Female 04/12/2021 7:39 PM MAINTENANCE SHOP WELDER Sexual Orientation Straight 04/12/2021 7: 39 PM MAINTENANCE SHOP WELDER documented as of this encounter Plan of Treatment Upcoming Encounters Date Type Department Care Team (Latest Contact Info) Description 10/05/2024 9:30 AM CDT Appointment Department of Radiology, [facility], in [place], [place] [address] [place] [address] Marisabel Carpenter APRN, C.N.P., D.N.P. [address] [place] [phone] 10/05/2024 12:00 PM CDT Appointment Division of Pulmonary Medicine in [place], [place] [address] [place] [address] Edgar Montgomery M.B.B.S., M.S. [address] [place] [phone] 10/05/2024 2:45 PM CDT Infusion Department of Infusion Therapy in [place], [place] [address] [place] [address] Noreen Ansari P.A.-C., M.S. [address] [place] [phone] 10/10/2024 7:50 AM CDT Lab Department of Laboratory Medicine and Pathology, [facility] in [place], [place] [address] [place] [address] Marisabel Carpenter APRN, C.N.P., D.N.P. [address] [place] [phone] 10/10/2024 8:00 AM CDT Lab Department of Laboratory Medicine and Pathology, [facility] in [place], [place] [address] [place] [address] Marisabel Carpenter APRN C.N.P., D.N.P. [address] [place] [phone] 10/10/2024 8:30 AM CDT [facility] in [place], [place] [address] [place] [address] Marisabel Carpenter APRN, C.N.P., D.N.P. [address] [place] [phone] 10/10/2024 9:20 AM CDT Appointment Department of Radiology, [facility] in [place], [place] [address] [place] [address] Marisabel Carpenter APRN, C.N.P., D.N.P. [address] [place] [phone] 10/10/2024 9:45 AM CDT Appointment Department of Laboratory Medicine and Pathology, [place], [place] [address] [place] [address] Marisabel Carpenter APRN, C.N.PSuma, D.N.P. [address] [place] [phone] 10/10/2024 1:30 PM CDT Appointment Department of Radiology, [facility] in [place], [place] [address] [place] [address] Marisabel Carpenter APRN, C.N.PSuma, D.N.P. [address] [place] [phone] Discharge Disposition: Home or Self Care 10/10/2024 2:45 PM CDT Appointment Department of Radiology, [facility] in [place], [place] [address] [place] [address] Marisabel Carpenter APRN, C.N.P., D.N.P. [address] [place] [phone] 10/11/2024 8:00 AM CDT [facility] in [place], [place] [address] [place] [address] Marisabel Carpenter APRN, C.NDayne, D.N.P. [address] [place] [phone] 10/11/2024 11:00 AM CDT Comprehensive Visit [facility] for Transplantation and Clinical Regeneration in [place], [place] [address] [place] [phone] Sree Devlin M.D. [address] [place] [phone] 10/11/2024 1:00 PM CDT Comprehensive Visit Department of Otorhinolaryngology in [place], [place] [address] [place] [phone] Randal Urbano, P.A.-C., M.S. [address] [place] [phone] 10/11/2024 2:00 PM CDT Office Visit [facility] for Transplantation and Clinical Regeneration in [place], [place] [address] [place] [phone] Hiro Murillo P.A.-C. [address] [place] [phone] 10/11/2024 4:00 PM CDT Comprehensive Visit Department of Dermatology in [place], [place] [address] [place] [phone] Parul Martinez M.D. [address] [place] [phone] 10/12/2024 8:00 AM CDT Telemedicine [facility] for Transplantation and Clinical Regeneration in [place], [place] [address] [place] [phone] Ervin Mckeon D.O. [address] [place] [phone] 11/01/2024 2:15 PM CDT Appointment Division of Pulmonary Medicine in [place], [place] [address] [place] [address] Edgar Montgomery M.B.B.S., M.S. [address] [place] [address] documented as of this encounter Visit Diagnoses Not on filedocumented in this encounter Additional Health Concerns Infection Onset Date Last Indicated Resolved Time Protective Environment 10/10/2022 10/10/2022 Assessment Noted Time PHQ-9 Depression Total Score: 4 08/12/19 25 3:31 PM CDT documented as of this encounter Care Teams Cnc Manufacturing Engineer Relationship Specialty Start Date End Date Ana Red MPAS, P.A.-C. [address] [place] [address] [place] [address] PCP - General Internal Medicine 12/01/21 [facility] [place] [facility] 08/25/21 documented as of this encounter
--- OUTSIDE RECORDS SUMMARY | 2024-10-04 05:57 | XMS_ITS | Encounter Summary ---
Author Organization [facility] Address [address] [place] [address] Care Team Providers Care Layer Out Plate Glass Name Role Phone Ana Red P.A.-C. Primary Care Pro vider Reason for Referral * Outpatient (Routine) - Closed Specialty Diagnoses / Procedures Referred By Meir lara Referred To Contact Diagnoses Transplant Liver (HCC) Medication Therapy Certified Pathology Assistant Not Anticoagulant Elevated Liver Function Test Procedures TXP liver biopsy Migue Escobar M.D. 200 [place] [address] Phone: tel: fax: [facility] Referral ID Status Reason Start Date Expiration Date Visits Re quested Visits Authorized [id number] Closed 08/31/2024 12/01/2025 1 1 * Transplant (Routine) - Closed Specialty Diagnoses / Procedures Referred By Meir lara Referred To Contact Transplant Diagnoses Transplant Liver (HCC) Medication Therapy Senior Care Not Anticoagulant Elevated Liver Function Test Migue Escobar M.D. [address] [place] [phone] Phone: tel: fax: [facility] Referral ID Status Reason Start Date Expiration Date Visits Re quested Visits Authorized [id number] Closed 08/31/2024 03/02/2026 1 1 Encounter Details Date Type Department Care Team (Late st Contact Info) Description 08/31/2024 Orders Only Ramirez Nguyen [facility] for Transplantation and Clinical Regeneration in [place], [place] [address] [place] [address] Nola Whipple R.N., C.C.T.C. [address] [place] [phone] Transplant Liver (HCC) (Primary Dx); Medication Therapy Senior Care Not Anticoagulant; Elevated Liver Function Test Social [...] or so. [facility] [employer] Answer Date Recorded In the past 12 months has [employer], gas, oil, or water [employer] threatened to shut off services in your [...] often do you attend chur ch or sabianist services? Patient declined 02/10/2022 Do [...] Answer Date Recorded PHQ-2 Score 0 08/11/2024 [facility] of Occupat ional Health - [...] your living situation today? I have a [facility] place to live 09/09/2024 Education Answer Date Recorded What is the highest level of school you have completed or the highest degree you have received? Associate degree: occupational, technical, or vocational program 07/16/2021 Comments No Sex and Gender Information Value Date Recorded Sex Assigned at Female 04/12/2021 7:39 PM INFORMATION ASSURANCE MANAGER Legal Sex Female 7:53 PM INFORMATION ASSURANCE MANAGER Gender Identity Female 04/12/2021 7:39 PM INFORMATION ASSURANCE MANAGER Sexual Orientation Straight 04/12/2021 7: 39 PM INFORMATION ASSURANCE MANAGER documented as of this encounter Plan of Treatment Upcoming Encounters Date Type Department Care Team (Latest Contact Info) Description 10/05/2024 9:30 AM CDT Appointment Department of Radiology, [facility], in [place], [place] [address] [place] [address] Marisabel Carpenter APRN, C.N.P., D.N.P. [address] [place] [phone] 10/05/2024 12:00 PM CDT Appointment Division of Pulmonary Medicine in [place], [place] [address] [place] [phone] Edgar Montgomery M.B.B.S., M.S. [address] [place] [phone] 10/05/2024 2:45 PM CDT Infusion Department of Infusion Therapy in [place], [place] [address] [place] [phone] Noreen Ansari P.A.-C., M.S. [address] [place] [address] 10/10/2024 7:50 AM CDT Lab Department of Laboratory Medicine and Pathology, [place], [place] [address] [place] [address] Marisabel Carpenter APRN, C.N.P., D.N.P. [address] [place] [phone] 10/10/2024 8:00 AM CDT Lab Department of Laboratory Medicine and Pathology, [facility] in [place], [place] [address] [place] [address] Marisabel Carpenter APRN, C.N.PSuma, D.N.P. [address] [place] [phone] 10/10/2024 8:30 AM CDT Nurse Only [facility] in [place], [place] [address] [place] [address] Marisabel Carpenter APRN, C.N.PSuma, D.N.P. [address] [place] [phone] 10/10/2024 9:20 AM CDT Appointment Department of Radiology, [place], [place] [address] [place] [address] Marisabel Carpenter APRN, C.N.P., D.N.P. [address] [place] [phone] 10/10/2024 9:45 AM CDT Appointment Department [place] [address] [place] [address] Marisabel Carpenter APRN, C.N.PSuma, D.N.P. [address] [place] [phone] 10/10/2024 1:30 PM CDT Appointment Department of Radiology, [facility] in [place], [place] [address] [place] [address] Marisabel Carpenter APRN C.N.PSuma, D.N.P. [address] [place] [phone] Discharge Disposition: Home or Self Care 10/10/2024 2:45 PM CDT Appointment Department of Radiology, [facility] in [place], [place] [address] [place] [address] Marisabel Carpenter APRN, C.N.PSuma, D.N.P. [address] [place] [phone] 10/11/2024 8:00 AM CDT [facility] in [place], [place] [address] [place] [address] Marisabel Carpenter APRN, C.N.P., D.N.P. [address] [place] [phone] 10/11/2024 11:00 AM CDT Comprehensive Visit [facility] for Transplantation and Clinical Regeneration in [place], [place] [address] [place] [address] Sree Devlin M.D. [address] [place] [phone] 10/11/2024 1:00 PM CDT Comprehensive Visit Department of Otorhinolaryngology in [place], [place] [address] [place] [phone] Randal Urbano P.A.-C., M.S. [address] [place] [phone] 10/11/2024 2:00 PM CDT Office Visit [facility] Transplantation and Clinical Regeneration in [place], [place] [address] [place] [phone] Hiro Murillo P.A.-C. [address] [place] [phone] 10/11/2024 4:00 PM CDT Comprehensive Visit Department of Dermatology in [address] [phone] Parul Martinez M.D. [address] [place] [phone] 10/12/2024 8:00 AM CDT Telemedicine [facility] Transplantation and Clinical Regeneration in [address] [phone] Ervin Mckeon D.O. [address] [place] [phone] 11/01/2024 2:15 PM CDT Appointment Division of Pulmonary Medicine in [address] [phone] Edgar Montgomery M.B.B.S., M.S. [address] [place] [phone] Scheduled Referrals Name Type Priority Associated Diagnoses Order Schedule Transplant Liver office visit (clinic) Outpatient Referral Routine Transplant Liver (HCC) Medication Therapy Certified Pathology Assistant Not Anticoagulant Elevated Liver Function Test Expected: 09/05/2024, Expires: 12/01/2025 documented as of this encounter Results * CT BX NDL LIVER PERC, CT US GUIDE PLC NDL (09/05/2024 4:17 PM [...] OR DERABLES Final Result Performing Organization Address City/[facility]/ZIP Co de Phone Number MMODAL NA * [...] 11:27 AM CDT 09/05/2024 11:36 AM CDT Migue Escobar M.D. LAB BLOOD ADD-ON Final Resu lt Performing Organization Address City/[facility] Co de Phone Number [facility] [address] [place] [address], [facility] [place] [address] [place] [address] documented in this encounter Visit Diagnoses Diagnosis Transplant Liver (HCC)- Primary Medication Therapy Senior Care Not Anticoagulant Elevated Liver Function Test Transplant Liver (HCC) Medication Therapy Senior Care Not Anticoagulant Elevated Liver Function Test Acute Abdomen documented in this encounter Additional Health Concerns Infection Onset Date Last Indicated Resolved Time Protective Environment 10/10/2022 10/10/2022 Assessment Noted Time PHQ-9 Depression Total Score: 4 08/12/19 25 3:31 PM CDT documented as of this encounter Care Teams Layer Out Plate Glass Relationship Specialty Start Date End Date Ana Red MPAS, P.A.-C. [address] [place] [address] [place] [address] PCP - General Internal Medicine 12/01/21 [facility] [place] [facility] 08/25/21 documented as of this encounter
--- OUTSIDE RECORDS SUMMARY | 2024-10-04 05:57 | XMS_ITS | Encounter Summary ---
Author Organization [facility] Address [address] [place] [address] Care Team Providers Care Teacher Specialist Name Role Phone Ana Red, P.A.-C. Primary Care Pro vider Encounter Details Date Type Department Care Team (Late st Contact Info) Description 09/05/2024 Orders Only [facility] Ana Red MPAS, P.A.-C. [address] [place] [phone] Social History Tobacco Use Types Packs/Day Years Used Date Smoking Tobacco: Former Cigarettes 1 - 10/12/2021 Passive Smoke Exposure: Never Smokeless Tobacco: Never Comments:Smoked cigarettes f rom age 18-30 about Alcohol Use Standard Drinks/Week Comments Never 0 (1 standard drink = 0.6 oz pure alcohol) Havent had any alcohol in about a year or so. [facility] Utilities Answer Date Recorded In the past 12 months has [employer], gas, oil, or water company threatened to [...] [facility] 09/09/2024 Education Answer Date Recorded What is the highest level of school you have completed or the highest degree you have received? Associate degree: occupational, technical, or vocational program 07/16/2021 Comments No Sex and Gender Information Value Date Recorded Sex Assigned at Female 04/12/2021 7:39 PM NUTRITION INTERN Legal Sex Female 7:53 PM NUTRITION INTERN Gender Identity Female 04/12/2021 7:39 PM NUTRITION INTERN Sexual Orientation Straight 04/12/2021 7: 39 PM NUTRITION INTERN documented as of this encounter Plan of Treatment Upcoming Encounters Date Type Department Care Team (Latest Contact Info) Description 10/05/2024 9:30 AM CDT Appointment Department of Radiology, [facility], in [place], [place] 200 [place] [address] Marisabel Carpenter APRN, C.N.P., D.N.P. 200 [place] [phone] 10/05/2024 12:00 PM CDT Appointment Division of Pulmonary Medicine in [place], [place] [address] [place] [phone] Edgar Montgomery M.B.B.S., M.S. [address] [place] [phone] 10/05/2024 2:45 PM CDT Infusion Department of Infusion Therapy in [place], [place] [address] [place] [phone] Noreen Ansari P.A.-C., M.S. [address] [place] [phone] 10/10/2024 7:50 AM CDT Lab Department of Laboratory Medicine and Pathology, [facility] in [place], [place] [address] [place] [address] Marisabel Carpenter APRN, C.N.P., D.N.P. [address] [place] [phone] 10/10/2024 8:00 AM CDT Lab Department of Laboratory Medicine and Pathology, [facility] in [place], [place] [address] [place] [address] Marisabel Carpenter APRN, C.N.P., D.N.P. [address] [place] [phone] 10/10/2024 8:30 AM CDT Nurse Only Ramirez Nguyen [place] for Transplantation and Clinical Regeneration in [place], [place] [address] [place] [address] Marisabel Carpenter APRN, C.N.P., D.N.P. [address] [place] [phone] 10/10/2024 9:20 AM CDT Appointment Department of Radiology, [facility] in [place], [place] [address] [place] [address] Marisabel Carpenter APRN, C.N.P., D.N.P. [address] [place] [phone] 10/10/2024 9:45 AM CDT Appointment Department of Laboratory Medicine and Pathology, [facility] in [place], [place] [address] [place] [address] Marisabel Carpenter APRN, C.N.P., D.N.P. [address] [place] [phone] 10/10/2024 1:30 PM CDT Appointment Department of Radiology, [facility] in [place], [place] [address] [place] [address] Marisabel Carpenter APRN, C.N.P., D.N.P. [address] [place] [phone] Discharge Disposition: Home or Self Care 10/10/2024 2:45 PM CDT Appointment Department of Radiology, [facility], in [place], [place] [address] [place] [address] Marisabel Carpenter APRN, C.N.P., D.N.P. [address] [place] [phone] 10/11/2024 8:00 AM CDT Office Visit Ramirez diaz [facility] for Transplantation and Clinical Regeneration in [place], [place] [address] [place] [address] Marisabel Carpenter APRN, C.N.P., D.N.P. [address] [place] [phone] 10/11/2024 11:00 AM CDT Comprehensive Visit [facility] for Transplantation and Clinical Regeneration in [place], [place] [address] [place] [address] Sree Devlin M.D. [address] [place] [phone] 10/11/2024 1:00 PM CDT Comprehensive Visit Department of Otorhinolaryngology in [place], [place] [address] [place] [phone] Randal Urbano P.A.-Katrin., M.S. [address] [place] [phone] 10/11/2024 2:00 PM CDT Office Visit [facility] for Transplantation and Clinical Regeneration in [place], [place] [address] [place] [phone] Hiro Murillo P.A.-C. [address] [place] [phone] 10/11/2024 4:00 PM CDT Comprehensive Visit Department of Dermatology in [place], [place] [address] [place] [phone] Parul Martinez M.D. [address] [place] [phone] 10/12/2024 8:00 AM CDT Telemedicine [facility] for Transplantation and Clinical Regeneration in [place], [place] [address] [place] [phone] Ervin Mckeon D.O. [address] [place] [phone] 11/01/2024 2:15 PM CDT Appointment Division of Pulmonary Medicine in [place], [place] [address] [place] [phone] Edgar Montgomery M.B.BSumaS., M.S. [address] [place] [address] documented as of this encounter Visit Diagnoses Not on filedocumented in this encounter Additional Health Concerns Infection Onset Date Last Indicated Resolved Time Protective Environment 10/10/2022 10/10/2022 Assessment Noted Time PHQ-9 Depression Total Score: 4 08/12/19 25 3:31 PM CDT documented as of this encounter Care Teams Teacher Specialist Relationship Specialty Start Date End Date Ana Red MPAS, P.A.-C. [address] [place] [phone] PCP - General Internal Medicine 12/01/21 [facility] [place] [facility] 08/25/21 documented as of this encounter
--- OUTSIDE RECORDS SUMMARY | 2024-10-04 05:57 | XMS_ITS | Encounter Summary ---
Author Organization [facility] Address [address] [place] [address] Care Team Providers Care Pierogi Maker Name Role Phone Ana Red P.A.-C. Primary Care Pro vider Encounter Details Date Type Department Care Team (Late st Contact Info) Description 08/31/2024 Orders Only Division of Endocrinology in [place], [place] [address] [place] [phone] Catia Quintana, DIABETES MANAGER, C.N.P. [address] [place] [phone] Diabetes Mellitus Due To Underlying Condition With [...] about a year or so. [facility] Utilities Answer Date Recorded In the past 12 months has e [employer], gas, oil, or water [employer] threatened to shut off services in your [...] Answer Date Recorded PHQ-2 Score 0 08/11/2024 [facility] of Occupat ional Health - Occupational Stress [...] [facility] place to live 09/09/2024 Education Answer Date Recorded What is the highest level of school you have completed or the highest degree you have received? Associate degree: occupational, technical, or vocational program 07/16/2021 Comments No Sex and Gender Information Value Date Recorded Sex Assigned at Female 04/12/2021 7:39 PM THEATRE PROGRAM DIRECTOR Legal Sex Female 7:53 PM THEATRE PROGRAM DIRECTOR Gender Identity Female 04/12/2021 7:39 PM THEATRE PROGRAM DIRECTOR Sexual Orientation Straight 04/12/2021 7: 39 PM THEATRE PROGRAM DIRECTOR documented as of this encounter Plan of Treatment Upcoming Encounters Date Type Department Care Team (Latest Contact Info) Description 10/05/2024 9:30 AM CDT Appointment Department of Radiology, [facility], in [place], [place] [address] [place] [address] Marisabel Carpenter APRN, C.N.PSuma, D.N.P. [address] [place] [phone] 10/05/2024 12:00 PM CDT Appointment Division of Pulmonary Medicine in [place], [place] [address] [place] [address] Edgar Montgomery M.B.B.S., M.S. [address] [place] [phone] 10/05/2024 2:45 PM CDT Infusion Department of Infusion Therapy in [place], [place] [address] [place] [address] Noreen Ansari P.A.-C., M.S. [address] [place] [phone] 10/10/2024 7:50 AM CDT Lab Department of Laboratory Medicine and Pathology, [facility] in [place], [place] [address] [place] [address] Marisabel Carpenter APRN, Katrin.N.PSuma, D.N.P. [address] [place] [phone] 10/10/2024 8:00 AM CDT Lab Department of Laboratory Medicine and Pathology, [facility], in [place], [place] [address] [place] [address] Marisabel Carpenter APRN, Katrin.N.P., D.N.P. [address] [place] [phone] 10/10/2024 8:30 AM CDT Nurse Only Ramirez diaz [facility] in [place], [place] [address] [place] [address] Marisabel Carpenter APRN, C.N.P., D.N.P. [address] [place] [phone] 10/10/2024 9:20 AM CDT Appointment Department of Radiology, [facility] in [place], [place] [address] [place] [address] Marisabel Carpenter APRN, C.N.P., D.N.P. [address] [place] [phone] 10/10/2024 9:45 AM CDT Appointment Department of Laboratory Medicine and Pathology, [facility] in [place], [place] [address] [place] [phone] Marisabel Carpenter APRN, Katrin.N.PSuma, D.N.P. [address] [place] [phone] 10/10/2024 1:30 PM CDT Appointment Department of Radiology, [facility] in [place], [place] [address] [place] [address] Marisabel Carpenter APRN, C.N.PSuma, D.N.P. [address] [place] [phone] Discharge Disposition: Home or Self Care 10/10/2024 2:45 PM CDT Appointment Department of Radiology, [facility] in [place], [place] [address] [place] [address] Marisabel Carpenter APRN, C.N.P., D.N.P. [address] [place] [phone] 10/11/2024 8:00 AM CDT [facility] in [place], [place] [address] [place] [address] Marisabel Carpenter APRN, CSumaN.P., D.N.P. [address] [place] [phone] 10/11/2024 11:00 AM CDT Comprehensive [facility] in [place], [place] [address] [place] [address] Sree Devlin M.D. [address] [place] [phone] 10/11/2024 1:00 PM CDT Comprehensive Visit Department of Otorhinolaryngology in [place], [place] [address] [place] [address] Randal Urbano, P.Silvano.-C., M.S. [address] [place] [phone] 10/11/2024 2:00 PM CDT Office Visit [facility] in [place], [place] [address] [place] [address] Hiro Murillo P.A.-C. [address] [place] [phone] 10/11/2024 4:00 PM CDT Comprehensive Visit Department of Dermatology in [place], [place] [address] [place] [phone] Parul Martinez M.D. [address] [place] [phone] 10/12/2024 8:00 AM CDT Telemedicine [facility] in [place], [place] [address] [place] [address] Ervin Mckeon D.O. [address] [place] [address] 11/01/2024 2:15 PM CDT Appointment Division of Pulmonary Medicine in [place], [place] [address] [place] [phone] Edgar Montgomery M.B.B.S., M.S. 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 [address] [place] [phone] PCP - General Internal Medicine 12/01/21 [facility] [place] [facility] 08/25/21 documented as of this encounter
--- OUTSIDE RECORDS SUMMARY | 2024-10-04 05:57 | XMS_ITS | Encounter Summary ---
Author Organization [facility] Address [address] [place] [address] Care Team Providers Care Plastic Tile Setter Name Role Phone Ana Red P.A.-C. Primary Care Pro vider Encounter Details Date Type Department Care Team (Late st Contact Info) Description 09/01/2024 Orders Only Ramirez diaz [facility] for Transplantation [facility] Clinical Regeneration in [place], [place] [address] [place] [phone] Noreen Ansari P.Silvano.-C., M.S. [address] [place] [phone] Social History Tobacco Use Types Packs/Day Years Used Date Smoking Tobacco: Former Cigarettes 1 - 10/12/2021 Passive Smoke Exposure: Never Smokeless Tobacco: Never Comments:Smoked cigarettes f rom age 18-30 about Alcohol Use Standard Drinks/Week Comments Never 0 (1 standard drink = 0.6 oz pure alcohol) Havent had any alcohol in about a year or so. [facility] Utilities Answer Date Recorded In the past 12 months has th e electric, gas, oil, or water [employer] threatened to shut off services in your [...] How often do you attend chur or quaker services? Patient declined 02/10/2022 Do [...] Score 0 08/11/2024 [facility] [place] of Occupat ional Health - Occupational Stress [...] [facility] place to live 09/09/2024 Education Answer Date Recorded What is the highest level of school you have completed or the highest degree you have received? Associate degree: occupational, technical, or vocational program 07/16/2021 Comments No Sex and Gender Information Value Date Recorded Sex Assigned at Female 04/12/2021 7:39 PM INSPECTION CLERK Legal Sex Female 7:53 PM INSPECTION CLERK Gender Identity Female 04/12/2021 7:39 PM INSPECTION CLERK Sexual Orientation Straight 04/12/2021 7: 39 PM INSPECTION CLERK documented as of this encounter Plan of Treatment Upcoming Encounters Date Type Department Care Team (Latest Contact Info) Description 10/05/2024 9:30 AM CDT Appointment Department of Radiology, [facility], in [place], [place] [address] [place] [address] Marisabel Carpenter APRN, C.N.P., D.N.P. [address] [place] [phone] 10/05/2024 12:00 PM CDT Appointment Division of Pulmonary Medicine in [place], [place] [address] [place] [address] Edgar Montgomery M.B.B.S., M.S. [address] [place] [phone] 10/05/2024 2:45 PM CDT Infusion Department of Infusion Therapy in [place], [place] [address] [place] [address] Noreen Ansari P.A.-C., M.S. [address] [place] [phone] 10/10/2024 7:50 AM CDT Lab Department of Laboratory Medicine and Pathology, [facility] in [place], [place] [address] [place] [address] Marisabel Carpenter APRN, C.N.P., D.N.P. [address] [place] [phone] 10/10/2024 8:00 AM CDT Lab Department of Laboratory Medicine and Pathology, [facility] in [place], [place] [address] [place] [address] Marisabel Carpenter APRN, C.N.P., D.N.P. [address] [place] [phone] 10/10/2024 8:30 AM CDT Nurse Only [facility] in [place], [place] [address] [place] [address] Marisabel Carpenter APRN, C.N.P., D.N.P. [address] [place] [phone] 10/10/2024 9:20 AM CDT Appointment Department of Radiology, [facility] in [place], [place] [address] [place] [address] Marisabel Carpenter APRN, C.N.P., D.N.P. [address] [place] [phone] 10/10/2024 9:45 AM CDT Appointment Department of Laboratory Medicine and Pathology, [facility] in [place], [place] [address] [place] [phone] Marisabel Carpenter APRN, Katrin.N.PSuma, D.N.P. [address] [place] [phone] 10/10/2024 1:30 PM CDT Appointment Department of Radiology, [facility] in [place], [place] [address] [place] [address] Marisabel Carpenter APRN, C.N.P., D.N.P. [address] [place] [phone] Discharge Disposition: Home or Self Care 10/10/2024 2:45 PM CDT Appointment Department of Radiology, [facility] in [place], [place] [address] [place] [address] Marisabel Carpenter APRN, C.N.P., D.N.P. [address] [place] [phone] 10/11/2024 8:00 AM CDT [facility] in [place], [place] [address] [place] [phone] Marisabel Carpenter APRN, C.NDayne, D.N.P. [address] [place] [phone] 10/11/2024 11:00 AM CDT Comprehensive Visit [facility] for Transplantation and Clinical Regeneration in [place], [place] [address] [place] [phone] Sree Devlin M.D. [address] [place] [phone] 10/11/2024 1:00 PM CDT Comprehensive Visit Department of Otorhinolaryngology in [place], [place] [address] [place] [phone] Randal Urbano P.A.-Katrin., M.S. [address] [place] [phone] 10/11/2024 2:00 PM CDT Office Visit [facility] for [facility] Clinical Regeneration in [place], [place] [address] [place] [phone] Hiro Murillo P.A.-C. [address] [place] [phone] 10/11/2024 4:00 PM CDT Comprehensive Visit Department of Dermatology in [place], [place] [address] [place] [phone] Parul Martinez M.D. [address] [place] [phone] 10/12/2024 8:00 AM CDT Telemedicine [facility] for Transplantation and Clinical Regeneration in [place], [place] [address] [place] [phone] Ervin Mckeon D.O. [address] [place] [address] 11/01/2024 2:15 PM CDT Appointment Division of Pulmonary Medicine in [place], [place] [address] [place] [address] Edgar Montgomery M.B.B.S., M.S. [address] [place] [phone] documented as of this encounter Visit Diagnoses Not on filedocumented in this encounter Additional Health Concerns Infection Onset Date Last Indicated Resolved Time Protective Environment 10/10/2022 10/10/2022 Assessment Noted Time PHQ-9 Depression Total Score: 4 08/12/19 25 3:31 PM CDT documented as of this encounter Care Teams Plastic Tile Setter Relationship Specialty Start Date End Date Ana Red MPAS, P.A.-C. [address] [place] [phone] PCP - General Internal Medicine 12/01/21 [facility] [place] [facility] 08/25/21 documented as of this encounter
--- OUTSIDE RECORDS SUMMARY | 2024-10-04 05:57 | XMS_ITS | Encounter Summary ---
Author Organization [facility] Address [address] [place] [address] Care Team Providers Care Hat Body Sorter Name Role Phone Ana Red P.A.-C. Primary [...] in about a year or so. [facility] Utilities Answer Date Recorded In the past 12 months has e [employer], oil, or water [employer] threatened to shut off services in your [...] Answer Date Recorded PHQ-2 Score 0 08/11/2024 [facility] of Occupat ional Health [...] Sex Assigned at Female 04/12/2021 7:39 PM RECONCILIATION MANAGER Legal Sex Female 7:53 PM RECONCILIATION MANAGER Gender Identity Female 04/12/2021 7:39 PM RECONCILIATION MANAGER Sexual Orientation Straight 04/12/2021 7: 39 PM RECONCILIATION MANAGER documented as of this encounter Plan of Treatment Upcoming Encounters Date Type Department Care Team (Latest Contact Info) Description 10/05/2024 9:30 AM CDT Appointment Department of Radiology, [facility], in [place], [place] [address] [place] [address] Marisabel Carpenter APRN, C.N.P., D.N.P. [address] [place] [phone] 10/05/2024 12:00 PM CDT Appointment Division of Pulmonary Medicine in [place], [place] [address] [place] [phone] Edgar Montgomery M.B.B.S., M.S. [address] [place] [phone] 10/05/2024 2:45 PM CDT Infusion Department of Infusion Therapy in [place], [place] [address] [place] [address] Noreen Ansari P.A.-C., M.S. [address] [place] [phone] 10/10/2024 7:50 AM CDT Lab Department of Laboratory Medicine and Pathology, [place], [place] [address] [place] [address] Marisabel Carpenter APRN, C.N.P., D.N.P. [address] [place] [phone] 10/10/2024 8:00 AM CDT Lab Department of Laboratory Medicine and Pathology, [facility] in [place], [place] [address] [place] [address] Marisabel Carpenter APRN, C.N.P., D.N.P. [address] [place] [phone] 10/10/2024 8:30 AM CDT Nurse Only [facility] in [place], [place] [address] [place] [address] Marisabel Carpenter APRN, C.N.P., D.N.P. [address] [place] [phone] 10/10/2024 9:20 AM CDT Appointment Department of Radiology, [facility] in [place], [place] [address] [place] [address] Marisabel Carpenter APRN, C.N.P., D.N.P. [address] [place] [phone] 10/10/2024 9:45 AM CDT Appointment Department of Laboratory Medicine and Pathology, [facility] in [place], [place] [address] [place] [address] Marisabel Carpenter APRN, C.N.P., D.N.P. [address] [place] [phone] 10/10/2024 1:30 PM CDT Appointment Department of Radiology, [facility] in [place], [place] [address] [place] [address] Marisabel Carpenter APRN, C.N.P., D.N.P. [address] [place] [phone] Discharge Disposition: Home or Self Care 10/10/2024 2:45 PM CDT Appointment Department of Radiology, [facility] in [place], [place] [address] [place] [address] Marisabel aCrpenter APRN, C.N.P., D.N.P. [address] [place] [phone] 10/11/2024 8:00 AM CDT Office Visit [facility] in [place], [place] [address] [place] [address] Marisabel Carpenter APRN, C.N.P., D.N.P. [address] [place] [phone] 10/11/2024 11:00 AM CDT Comprehensive Visit [facility] for Transplantation and Clinical Regeneration in [place], [place] [address] [place] [address] Sree Devlin M.D. [address] [place] [phone] 10/11/2024 1:00 PM CDT Comprehensive Visit Department of Otorhinolaryngology in [place], [place] [address] [place] [address] Randal Urbano P.A.-C., M.S. [address] [place] [phone] 10/11/2024 2:00 PM CDT Office Visit [facility] Clinical Regeneration in [place], [place] [address] [place] [address] Hiro Murillo P.A.-C. [address] [place] [phone] 10/11/2024 4:00 PM CDT Comprehensive Visit Department of Dermatology in [place], [place] [address] [place] [address] Parul Martinez M.D. [address] [place] [phone] 10/12/2024 8:00 AM CDT Telemedicine [facility] for [facility]plantation and Clinical Regeneration in [place], [place] [address] [place] [address] Ervin Mckeon D.O. [address] [place] [phone] 11/01/2024 2:15 PM CDT Appointment Division of Pulmonary Medicine in [place], [place] [address] [place] [address] Edgar Montgomery M.B.B.S., M.S. [address] [place] [address] documented as of this encounter Visit Diagnoses Not on filedocumented in this encounter Additional Health Concerns Infection Onset Date Last Indicated Resolved Time Protective Environment 10/10/2022 10/10/2022 Assessment Noted Time PHQ-9 Depression Total Score: 4 08/12/19 25 3:31 PM CDT documented as of this encounter Care Teams Hat Body Sorter Relationship Specialty Start Date End Date Ana Red MPAS, P.A.-C. [address] [place] [address] PCP - General Internal Medicine 12/01/21 [facility] [place] [facility] 08/25/21 documented as of this encounter
--- OUTSIDE RECORDS SUMMARY | 2024-10-04 05:57 | XMS_ITS | Encounter Summary ---
Author Organization [facility] Address [address] [place] [address] Care Team Providers Care Community Service Officer Coordinator Name Role Phone Ana Red P.A.-C. Primary Care Pro vider Encounter Details Date Type Department Care Team (Late st Contact Info) Description 09/05/2024 Orders Only Ramirez diaz [facility] for Transplantation and Clinical Regeneration in [place], [place] [address] [place] [phone] Hiro Murillo P.A.-CSuma [address] [place] [phone] Acute Abdomen (Primary Dx) Social History Tobacco Use Types Packs/Day Years Used Date Smoking Tobacco: Former Cigarettes 1 - 10/12/2021 Passive Smoke Exposure: Never Smokeless Tobacco: Never Comments:Smoked cigarettes f rom age 18-30 about Alcohol Use Standard Drinks/Week Comments Never 0 (1 standard drink = 0.6 oz pure alcohol) Havent had any alcohol in about a year or so. [facility] Utilities Answer Date Recorded In the past 12 months has th e electric, gas, oil, or water [employer] threatened to shut off services in your [...] PHQ-2 Score 0 08/11/2024 [facility] [place] of Occupat ional Health - Occupational Stress [...] your living situation today? I have a [facility] place to live 09/09/2024 Education Answer Date Recorded What is the highest level of school you have completed or the highest degree you have received? Associate degree: occupational, technical, or vocational program 07/16/2021 Comments No Sex and Gender Information Value Date Recorded Sex Assigned at Female 04/12/2021 7:39 PM CHIEF LOCK OPERATOR Legal Sex Female 7:53 PM CHIEF LOCK OPERATOR Gender Identity Female 04/12/2021 7:39 PM CHIEF LOCK OPERATOR Sexual Orientation Straight 04/12/2021 7: 39 PM CHIEF LOCK OPERATOR documented as of this encounter Plan of Treatment Upcoming Encounters Date Type Department Care Team (Latest Contact Info) Description 10/05/2024 9:30 AM CDT Appointment Department of Radiology, [facility], in [place], [place] [address] [place] [address] Marisabel Carpenter APRN, C.N.P., D.N.P. [address] [place] [phone] 10/05/2024 12:00 PM CDT Appointment Division of Pulmonary Medicine in [place], [place] [address] [place] [address] Edgar Montgomery M.B.B.S., M.S. [address] [place] [phone] 10/05/2024 2:45 PM CDT Infusion Department of Infusion Therapy in [place], [place] [address] [place] [address] Noreen Ansari P.A.-C., M.S. [address] [place] [phone] 10/10/2024 7:50 AM CDT Lab Department of Laboratory Medicine and Pathology, [facility] in [place], [place] [address] [place] [address] Marisabel Carpenter APRN, C.N.P., D.N.P. [address] [place] [phone] 10/10/2024 8:00 AM CDT Lab Department of Laboratory Medicine and Pathology, [facility] in [place], [place] [address] [place] [address] Marisabel Carpenter APRN, C.N.P., D.N.P. [address] [place] [phone] 10/10/2024 8:30 AM CDT Nurse Only [facility] in [place], [place] [address] [place] [address] Marisabel Carpenter APRN, C.N.P., D.N.P. [address] [place] [phone] 10/10/2024 9:20 AM CDT Appointment Department of Radiology, [facility] in [place], [place] [address] [place] [address] Marisabel Carpenter APRN, C.N.P., D.N.P. [address] [place] [phone] 10/10/2024 9:45 AM CDT Appointment Department of Laboratory Medicine and Pathology, [facility] in [place], [place] [address] [place] [phone] Marisabel Carpenter APRN, Katrin.N.PSuma, D.N.P. [address] [place] [phone] 10/10/2024 1:30 PM CDT Appointment Department of Radiology, [facility] in [place], [place] [address] [place] [address] Marisabel Carpenter APRN, C.N.P., D.N.P. [address] [place] [phone] Discharge Disposition: Home or Self Care 10/10/2024 2:45 PM CDT Appointment Department of Radiology, [facility] in [place], [place] [address] [place] [address] Marisabel Carpenter APRN, C.N.P., D.N.P. [address] [place] [phone] 10/11/2024 8:00 AM CDT [facility] in [place], [place] [address] [place] [phone] Marisabel Carpenter APRN, C.NDayne, D.N.P. [address] [place] [phone] 10/11/2024 11:00 AM CDT Comprehensive Visit [facility] for Transplantation and Clinical Regeneration in [place], [place] [address] [place] [phone] Sree Devlin M.D. [address] [place] [phone] 10/11/2024 1:00 PM CDT Comprehensive Visit Department of Otorhinolaryngology in [place], [place] [address] [place] [phone] Randal Urbano P.A.-Katrin., M.S. [address] [place] [phone] 10/11/2024 2:00 PM CDT Office Visit [facility] for Transplantation and Clinical Regeneration in [place], [place] [address] [place] [phone] Hiro Murillo P.A.-C. [address] [place] [phone] 10/11/2024 4:00 PM CDT Comprehensive Visit Department of Dermatology in [place], [place] [address] [place] [phone] Parul Martinez M.D. [address] [place] [phone] 10/12/2024 8:00 AM CDT Telemedicine [facility] for Transplantation and Clinical Regeneration in [place], [place] [address] [place] [phone] Ervin Mckeon D.O. [address] [place] [address] 11/01/2024 2:15 PM CDT Appointment Division of Pulmonary Medicine in [place], [place] [address] [place] [address] Edgar Montgomery M.B.B.S., M.S. [address] [place] [phone] documented as of this encounter Visit Diagnoses Diagnosis Acute Abdomen- Primary documented in this encounter Additional Health Concerns Infection Onset Date Last Indicated Resolved Time Protective Environment 10/10/2022 10/10/2022 Assessment Noted Time PHQ-9 Depression Total Score: 4 08/12/19 25 3:31 PM CDT documented as of this encounter Care Teams Community Service Officer Coordinator Relationship Specialty Start Date End Date Ana Red MPAS, P.A.-C. [address] [place] [phone] PCP - General Internal Medicine 12/01/21 [facility] [place] 08/25/21 documented as of this encounter
--- OUTSIDE RECORDS SUMMARY | 2024-10-04 05:57 | XMS_ITS | Encounter Summary ---
Author Organization [facility] Address [address] [place] [address] Care Team Providers Care Electrostatic Powder Coating Technician Name Role Phone Ana Red P.A.-C. Primary Care Pro vider Encounter Details Date Type Department Care Team (Late st Contact Info) Description 09/05/2024 Orders Only Ramirez diaz [facility] [place] [facility] for Transplantation and Clinical Regeneration in [place], [place] [address] [place] [phone] Migue Escobar M.D. [address] [place] [phone] Rejection Liver Transplant (HCC) (Primary Dx) Social [...] th e electric, gas, oil, or water [employer] threatened to shut off services in your [...] Answer Date Recorded PHQ-2 Score 0 08/11/2024 [facility] of Occupat ional Health - Occupational Stress [...] a [facility] place to live 09/09/2024 Education Answer Date Recorded What is the highest level of school you have completed or the highest degree you have received? Associate degree: occupational, technical, or vocational program 07/16/2021 Comments No Sex and Gender Information Value Date Recorded Sex Assigned at Female 04/12/2021 7:39 PM COUPON REDEMPTION CLERK Legal Sex Female 7:53 PM COUPON REDEMPTION CLERK Gender Identity Female 04/12/2021 7:39 PM COUPON REDEMPTION CLERK Sexual Orientation Straight 04/12/2021 7: 39 PM COUPON REDEMPTION CLERK documented as of this encounter Plan of Treatment Upcoming Encounters Date Type Department Care Team (Latest Contact Info) Description 10/05/2024 9:30 AM CDT Appointment Department of Radiology, [facility], in [place], [place] [address] [place] [address] Marisabel Carpenter APRN, C.N.P., D.N.P. [address] [place] [phone] 10/05/2024 12:00 PM CDT Appointment Division of Pulmonary Medicine in [place], [place] [address] [place] [address] Edgar Montgomery M.B.B.S., M.S. [address] [place] [phone] 10/05/2024 2:45 PM CDT Infusion Department of Infusion Therapy in [place], [place] [address] [place] [address] Noreen Ansari P.A.-C., M.S. [address] [place] [phone] 10/10/2024 7:50 AM CDT Lab Department of Laboratory Medicine and Pathology, [facility] in [place], [place] [address] [place] [address] Marisabel Carpenter APRN, C.N.P., D.N.P. [address] [place] [phone] 10/10/2024 8:00 AM CDT Lab Department of Laboratory Medicine and Pathology, [facility] in [place], [place] [address] [place] [address] Marisabel Carpenter APRN, C.N.P., D.N.P. [address] [place] [phone] 10/10/2024 8:30 AM CDT Nurse Only [facility] in [place], [place] [address] [place] [address] Marisabel Carpenter APRN, C.N.P., D.N.P. [address] [place] [phone] 10/10/2024 9:20 AM CDT Appointment Department of Radiology, [facility] in [place], [place] [address] [place] [address] Marisabel Carpenter APRN, C.N.P., D.N.P. [address] [place] [phone] 10/10/2024 9:45 AM CDT Appointment Department of Laboratory Medicine and Pathology, [facility] in [place], [place] [address] [place] [phone] Marisabel Carpenter APRN, Katrin.N.PSuma, D.N.P. [address] [place] [phone] 10/10/2024 1:30 PM CDT Appointment Department of Radiology, [facility] in [place], [place] [address] [place] [address] Marisabel Carpenter APRN, C.N.P., D.N.P. [address] [place] [phone] Discharge Disposition: Home or Self Care 10/10/2024 2:45 PM CDT Appointment Department of Radiology, [facility] in [place], [place] [address] [place] [address] Marisabel Carpenter APRN, C.N.P., D.N.P. [address] [place] [phone] 10/11/2024 8:00 AM CDT [facility] in [place], [place] [address] [place] [phone] Marisabel Carpenter APRN, C.NDayne, D.N.P. [address] [place] [phone] 10/11/2024 11:00 AM CDT Comprehensive Visit [facility] for Transplantation and Clinical Regeneration in [place], [place] [address] [place] [phone] Sree Devlin M.D. [address] [place] [phone] 10/11/2024 1:00 PM CDT Comprehensive Visit Department of Otorhinolaryngology in [place], [place] [address] [place] [phone] Randal Urbano P.A.-Katrin., M.S. [address] [place] [phone] 10/11/2024 2:00 PM CDT Office Visit [facility] for Transplantation and Clinical Regeneration in [place], [place] [address] [place] [phone] Hiro Murillo P.A.-C. [address] [place] [phone] 10/11/2024 4:00 PM CDT Comprehensive Visit Department of Dermatology in [place], [place] [address] [place] [phone] Parul Martinez M.D. [address] [place] [phone] 10/12/2024 8:00 AM CDT Telemedicine [facility] for Transplantation and Clinical Regeneration in [place], [place] [address] [place] [phone] Ervin Mckeon D.O. [address] [place] [address] 11/01/2024 2:15 PM CDT Appointment Division of Pulmonary Medicine in [place], [place] [address] [place] [address] Edgar Montgomery M.B.B.S., M.S. [address] [place] [phone] documented as of this encounter Results * (ABNORMAL) AST (Aspartate Aminotransferase) (09/05/2024 11:19 AM CDT) Aspartate Aminotransferase (AST), S 841(H) 8 - 43 U/L 09/06/2024 11:17 AM CDT DTL Blood (Blood, Venous) 09/05/2024 11:19 AM CDT 09/06/2024 10:25 AM CDT us Migue Escobar M.D. LAB BLOOD ADD-ON Final Resu lt [facility] [address] [place] [address], [facility] 200 [place] [address] documented in this encounter Visit Diagnoses Diagnosis Rejection Liver Transplant (HCC)- Primary documented in this encounter Additional Health Concerns Infection Onset Date Last Indicated Resolved Time Protective Environment 10/10/2022 10/10/2022 Assessment Noted Time PHQ-9 Depression Total Score: 4 08/12/19 25 3:31 PM CDT documented as of this encounter Care Teams Electrostatic Powder Coating Technician Relationship Specialty Start Date End Date Ana Red MPAS, P.A.-C. [address] [place] [address] [place] [phone] PCP - General Internal Medicine 12/01/21 [facility] [place] [facility] 08/25/21 documented as of this encounter
--- OUTSIDE RECORDS SUMMARY | 2024-10-04 05:57 | XMS_ITS | Encounter Summary ---
Author Organization [facility] Address [address] [place] [address] Care Team Providers Care Financial Reporting Manager Name Role Phone Ana Red P.A.-C. Primary Care Pro vider Reason for Visit * Reason Onset Date Comments Phone Contact 09/04/2024 Encounter Details Date Type Department Care Team (Latest Contact Info) Description 09/04/2024 Clinical Communication Ramirez Navarrete [facility] for Transplantation and Clinical Regeneration in [place], [place] [address] [place] [phone] August, Sony Mendez R.N. [address] [place] [phone] Phone Contact Social History Tobacco Use Types Packs/Day Years Used Date Smoking Tobacco: Former Cigarettes 1 - 10/12/2021 Passive Smoke Exposure: Never Smokeless Tobacco: Never Comments:Smoked cigarettes f rom age 18-30 about Alcohol Use Standard Drinks/Week Comments Never 0 (1 standard drink = 0.6 oz pure alcohol) Havent had any alcohol in about a year or so. [facility] Utilities Answer Date Recorded In the past 12 months has e [employer], gas, oil, or water [employer] threatened to shut off services in your [...] How often do you attend chur or advent services? Patient declined 02/10/2022 Do [...] [facility] of Occupat ional Health [...] your living situation today? I have a [facility] place to live 08/22/2024 Education Answer Date Recorded What is the highest level of school you have completed or the highest degree you have received? Associate degree: occupational, technical, or vocational program 07/16/2021 Comments No Sex and Gender Information Value Date Recorded Sex Assigned at Female 04/12/2021 7:39 PM SENIOR BACKUP ADMINISTRATOR Legal Sex Female 7:53 PM SENIOR BACKUP ADMINISTRATOR Gender Identity Female 04/12/2021 7:39 PM SENIOR BACKUP ADMINISTRATOR Sexual Orientation Straight 04/12/2021 7: 39 PM SENIOR BACKUP ADMINISTRATOR documented as of this encounter Miscellaneous [...] of Radiology, [facility] in [place], [place] [address] [place] [phone] Marisabel Carpenter APRN, C.N.P., D.N.P. [address] [place] [phone] 10/05/2024 12:00 PM CDT Appointment Division of Pulmonary Medicine in [place], [place] [address] [place] [phone] Edgar Montgomery M.B.B.S., M.S. [address] [place] [phone] 10/05/2024 2:45 PM CDT Infusion Department of Infusion Therapy in [place], [place] [address] [place] [phone] Noreen Ansari P.A.-Katrin., M.S. [address] [place] [phone] 10/10/2024 7:50 AM CDT Lab Department of Laboratory Medicine and Pathology, [facility] in [place], [place] [address] [place] [phone] Marisabel Carpenter APRN, C.N.P., D.N.P. [address] [place] [phone] 10/10/2024 8:00 AM CDT Lab Department of Laboratory Medicine and Pathology, [facility] in [place], [place] [address] [place] [phone] Marisabel Carpenter APRN, C.N.P., D.N.P. [address] [place] [phone] 10/10/2024 8:30 AM CDT Nurse Only [facility] in [place], [place] [address] [place] [address] Marisabel Carpenter APRN, C.N.P., D.N.P. [address] [place] [phone] 10/10/2024 9:20 AM CDT Appointment Department of Radiology, [place], [place] [address] [place] [address] Marisabel Carpenter APRN, Katrin.N.PSuma, D.N.P. [address] [place] [phone] 10/10/2024 9:45 AM CDT Appointment Department of Laboratory Medicine and Pathology, [facility] in [place], [place] [address] [place] [address] Marisabel Carpenter APRN, C.N.P., D.N.P. [address] [place] [phone] 10/10/2024 1:30 PM CDT Appointment Department of Radiology, [place], [place] [address] [place] [address] Marisabel Carpenter APRN, C.N.P., D.N.P. [address] [place] [phone] Discharge Disposition: Home or Self Care 10/10/2024 2:45 PM CDT Appointment Department of Radiology, [facility] in [place], [place] [address] [place] [address] Marisabel Carpenter APRN, C.NSumaPSuma, D.N.P. [address] [place] [phone] 10/11/2024 8:00 AM CDT Office Visit [facility] for Transplantation and Clinical Regeneration in [place], [place] [address] [place] [phone] Marisabel Carpenter APRN, C.NDayne, D.N.P. [address] [place] [phone] 10/11/2024 11:00 AM CDT Comprehensive Visit [facility] for Transplantation and Clinical Regeneration in [place], [place] [address] [place] [phone] Sree Devlin M.D. [address] [place] [phone] 10/11/2024 1:00 PM CDT Comprehensive Visit Department of Otorhinolaryngology in [place], [place] [address] [place] [phone] Randal Urbano, P.A.-C., M.S. [address] [place] [phone] 10/11/2024 2:00 PM CDT Office Visit [facility] for Transplantation and Clinical Regeneration in [place], [place] [address] [place] [phone] Hiro Murillo P.A.-C. [address] [place] [phone] 10/11/2024 4:00 PM CDT Comprehensive Visit Department of Dermatology in [place], [place] [address] [place] [phone] Parul Martinez M.D. [address] [place] [phone] 10/12/2024 8:00 AM CDT Telemedicine Ramirez Landon [facility] for Transplantation and Clinical Regeneration in [place], [place] [address] [place] [address] Ervin Mckeon D.O. [address] [place] [phone] 11/01/2024 2:15 PM CDT Appointment Division of Pulmonary Medicine in [place], [place] [address] [place] [phone] Edgar Montgomery M.B.BSumaS., M.S. [address] [place] [phone] documented as of this encounter Visit Diagnoses Not on filedocumented in this encounter Additional Health Concerns Infection Onset Date Last Indicated Resolved Time Protective Environment 10/10/2022 10/10/2022 Assessment Noted Time PHQ-9 Depression Total Score: 4 08/12/19 25 3:31 PM CDT documented as of this encounter Care Teams Financial Reporting Manager Relationship Specialty Start Date End Date Ana Red MPAS, P.A.-C. [address] [place] [phone] PCP - General Internal Medicine 12/01/21 [facility] [place] [facility] 08/25/21 documented as of this encounter
--- OUTSIDE RECORDS SUMMARY | 2024-10-04 05:57 | XMS_ITS | Encounter Summary ---
Author Organization [facility] Address [address] [place] [address] Care Team Providers Care Guitar Repair Technician Name Role Phone Ana Red P.A.-C. Primary Care Pro vider Reason for Visit * Reason Onset Date Comments Post Hospital Follow-up 08/28/2024 Encounter Details Date Type Department Care Team (Latest Contact Info) Description 08/28/2024 Clinical Communication Department of Community Internal Medicine in [place], [place] [address] [place] [address] Xuan Malcolm R.N. [address] [phone] Post Hospital Follow-up Social History Tobacco Use Types Packs/Day Years Used Date Smoking Tobacco: Former Cigarettes 1 - 10/12/2021 Passive Smoke Exposure: Never Smokeless Tobacco: Never Comments:Smoked cigarettes f rom age 18-30 about Alcohol Use Standard Drinks/Week Comments Never 0 (1 standard drink = 0.6 oz pure alcohol) Havent had any alcohol in about a year or so. [facility] Utilities Answer Date [...] Answer Date Recorded PHQ-2 Score 0 08/11/2024 [facility] [place] of Occupat ional Health - Occupational Stress [...] your living situation today? I have a [facility] place to live 08/22/2024 Education Answer Date Recorded What is the highest level of school you have completed or the highest degree you have received? Associate degree: occupational, technical, or vocational program 07/16/2021 Comments No Sex and Gender Information Value Date Recorded Sex Assigned at Female 04/12/2021 7:39 PM BARKING MACHINE FEEDER Legal Sex Female 7:53 PM BARKING MACHINE FEEDER Gender Identity Female 04/12/2021 7:39 PM BARKING MACHINE FEEDER Sexual Orientation Straight 04/12/2021 7: 39 PM BARKING MACHINE FEEDER documented as of this encounter Miscellaneous Notes [...] of the steroid shot she received at [facility] for her liver that elevated her [...] 9:30 AM CDT Appointment Department of Radiology, [facility], in [place], [place] [address] [place] [address] Marisabel Carpenter APRN, C.N.P., D.N.P. [address] [place] [phone] 10/05/2024 12:00 PM CDT Appointment Division of Pulmonary Medicine in [place], [place] [address] [place] [address] Edgar Montgomery M.B.B.S., M.S. [address] [place] [phone] 10/05/2024 2:45 PM CDT Infusion Department of Infusion Therapy in [place], [place] [address] [place] [address] Noreen Ansari P.A.-C., M.S. [address] [place] [phone] 10/10/2024 7:50 AM CDT Lab Department of Laboratory Medicine and Pathology, [facility] in [place], [place] [address] [place] [address] Marisabel Carpenter APRN, Katrin.N.PSuma, D.N.P. [address] [place] [phone] 10/10/2024 8:00 AM CDT Lab Department of Laboratory Medicine and Pathology, [facility] in [place], [place] [address] [place] [address] Marisabel Carpenter APRN, Katrin.N.P., D.N.P. [address] [place] [phone] 10/10/2024 8:30 AM CDT [facility] in [place], [place] [address] [place] [address] Marisabel Carpenter APRN, C.N.P., D.N.P. [address] [place] [phone] 10/10/2024 9:20 AM CDT Appointment Department of Radiology, [facility] in [place], [place] [address] [place] [address] Marisabel Carpenter APRN, C.N.P., D.N.P. [address] [place] [phone] 10/10/2024 9:45 AM CDT Appointment Department of Laboratory Medicine and Pathology, [facility] in [place], [place] [address] [place] [address] Marisabel Carpenter APRN, Katrin.N.PSuma, D.N.P. [address] [place] [phone] 10/10/2024 1:30 PM CDT Appointment Department of Radiology, [facility] in [place], [place] [address] [place] [address] Marisabel Carpenter APRN, C.N.PSuma, D.N.P. [address] [place] [phone] Discharge Disposition: Home or Self Care 10/10/2024 2:45 PM CDT Appointment Department of Radiology, [facility] in [place], [place] [address] [place] [address] Marisabel Carpenter APRN, C.N.P., D.N.P. [address] [place] [phone] 10/11/2024 8:00 AM CDT Office Visit Ramirez Landon diaz [facility] Trans[facility] and Clinical Regeneration in [place], [place] [address] [place] [phone] Marisabel Carpenter APRN, C.NSumaPSuma, D.N.P. [address] [place] [phone] 10/11/2024 11:00 AM CDT Comprehensive Visit [facility] Clinical [facility] in [place], [place] [address] [place] [phone] Sree Devlin M.D. [address] [place] [phone] 10/11/2024 1:00 PM CDT Comprehensive Visit Department of Otorhinolaryngology in [place], [place] [address] [place] [phone] Randal Urbano, P.A.-C., M.S. [address] [place] [phone] 10/11/2024 2:00 PM CDT Office Visit [facility] in [place], [place] [address] [place] [phone] Hiro Murillo P.A.-CSuma [address] [place] [phone] 10/11/2024 4:00 PM CDT Comprehensive Visit Department of Dermatology in [place], [place] [address] [place] [phone] Parul Martinez M.D. [address] [place] [phone] 10/12/2024 8:00 AM CDT Telemedicine [facility] in [place], [place] [address] [place] [address] Ervin Mckeon D.O. [address] [place] [phone] 11/01/2024 2:15 PM CDT Appointment Division of Pulmonary Medicine in [place], [place] [address] [place] [address] Edgar Montgomery M.B.B.S., M.S. [address] [place] [address] documented as of this encounter Visit Diagnoses Not on filedocumented in this encounter Additional Health Concerns Infection Onset Date Last Indicated Resolved Time Protective Environment 10/10/2022 10/10/2022 Assessment Noted Time PHQ-9 Depression Total Score: 4 08/12/19 25 3:31 PM CDT documented as of this encounter Care Teams Guitar Repair Technician Relationship Specialty Start Date End Date Ana Red MPAS, P.A.-C. [address] [place] [phone] PCP - General Internal Medicine 12/01/21 [facility] [place] [facility] 08/25/21 documented as of this encounter
--- OUTSIDE RECORDS SUMMARY | 2024-10-04 05:57 | XMS_ITS | Encounter Summary ---
Author Organization [facility] Address [address] [place] [address] Care Team Providers Care Automation Tester Name Role Phone Ana Red P.A.-C. Primary Care Pro vider Encounter Details Date Type Department Care Team (Late st Contact Info) Description 08/31/2024 Clinical Communication Division of Endocrinology in [place], [place] [address] [place] [phone] Catia Quintana, YARITZA, C.N.P. [address] [place] [phone] Social History Tobacco Use Types Packs/Day Years Used Date Smoking Tobacco: Former Cigarettes 1 - 10/12/2021 Passive Smoke Exposure: Never Smokeless Tobacco: Never Comments:Smoked cigarettes f rom age 18-30 about Alcohol Use Standard Drinks/Week Comments Never 0 (1 standard drink = 0.6 oz pure alcohol) Havent had any alcohol in about a year or so. [facility] Utilities Answer Date Recorded In the past 12 months has [employer], gas, oil, or water [employer] threatened to shut off services in your [...] Answer Date Recorded PHQ-2 Score 0 08/11/2024 [facility] [place] of Occupat ional Health - Occupational Stress [...] Sex Assigned at Female 04/12/2021 7:39 PM COMPUTER FORENSICS TECHNICIAN Legal Sex Female 7:53 PM COMPUTER FORENSICS TECHNICIAN Gender Identity Female 04/12/2021 7:39 PM COMPUTER FORENSICS TECHNICIAN Sexual Orientation Straight 04/12/2021 7: 39 PM COMPUTER FORENSICS TECHNICIAN documented as of this encounter Miscellaneous [...] Lantus 8 units bid. Recommend follow-up with telehealth nurse educator in 1-2 weeks for continued insulin [...] 12:03 PM CDT To: Migue Escobar M.D. [place] Dr. Escobar, Thanks, I sent you orders to sign and will have her get in touch with diabetes. Nola Kraus ----- Message ----- From: Migue Escobar M.D. Sent: 08/31/2024 10:35 AM CDT To: Nola Whipple R.N., C.C.T.C. [place] Nola,Her liver tests are still elevated after [...] Radiology, [facility] in [place], [place] [address] [place] [address] Marisabel Carpenter APRN, C.N.P., D.N.P. [address] [place] [phone] 10/05/2024 12:00 PM CDT Appointment Division of Pulmonary Medicine in [place], [place] [address] [place] [phone] Edgar Montgomery M.B.B.S., M.S. [address] [place] [phone] 10/05/2024 2:45 PM CDT Infusion Department of Infusion Therapy in [place], [place] [address] [place] [address] Noreen Ansari P.A.-C., M.S. [address] [place] [phone] 10/10/2024 7:50 AM CDT Lab Department of Laboratory Medicine and Pathology, [facility] in [place], [place] [address] [place] [phone] Marisabel Carpenter APRN, C.N.P., D.N.P. [address] [place] [phone] 10/10/2024 8:00 AM CDT Lab Department of Laboratory Medicine and Pathology, [facility] in [place], [place] [address] [place] [address] Marisabel Carpenter APRN, C.N.PSuma, D.N.P. [address] [place] [phone] 10/10/2024 8:30 AM CDT Nurse Only Ramirez diaz [facility] for Transplantation and Clinical [facility] in [place], [place] [address] [place] [address] Marisabel Carpenter APRN, C.N.PSuma, D.N.P. [address] [place] [phone] 10/10/2024 9:20 AM CDT Appointment Department of Radiology, [place], [place] [address] [place] [address] Marisabel Carpenter APRN, C.N.PSuma, D.N.P. [address] [place] [phone] 10/10/2024 9:45 AM CDT Appointment Department of Laboratory Medicine and Pathology, [place], [place] [address] [place] [address] Marisabel Carpenter APRN, Katrin.N.PSuma, D.N.P. [address] [place] [phone] 10/10/2024 1:30 PM CDT Appointment Department of Radiology, [place], [place] [address] [place] [address] Marisabel Carpenter APRN, C.N.P., D.N.P. [address] [place] [phone] Discharge Disposition: Home or Self Care 10/10/2024 2:45 PM CDT Appointment Department of Radiology, [place], [place] [address] [place] [phone] Marisabel Carpenter APRN C.N.PSuma, D.N.P. [address] [place] [phone] 10/11/2024 8:00 AM CDT Office Visit [facility] Clinical Regeneration in [place], [place] [address] [place] [phone] Mariasbel Carpenter APRN, C.N.PSuma, D.N.P. [address] [place] [phone] 10/11/2024 11:00 AM CDT Comprehensive Visit [facility] in [place], [place] [address] [place] [phone] Sree Devlin M.D. [address] [place] [phone] 10/11/2024 1:00 PM CDT Comprehensive Visit Department of Otorhinolaryngology in [place], [place] [address] [place] [phone] Randal Urbano, Shanita.A.-C., M.S. [address] [place] [phone] 10/11/2024 2:00 PM CDT Office Visit [facility] in [place], [place] [address] [place] [phone] Hiro Murillo P.A.-C. [address] [place] [phone] 10/11/2024 4:00 PM CDT Comprehensive Visit Department of Dermatology in [place], [place] [address] [place] [phone] Parul Martinez M.D. [address] [place] [address] 10/12/2024 8:00 AM CDT Telemedicine [facility] in [place], [place] [address] [place] [address] Ervin Mckeon D.O. [address] [place] [phone] 11/01/2024 2:15 PM CDT Appointment Division of Pulmonary Medicine in [place], [place] [address] [place] [phone] Edgar Montgomery M.B.BSumaS., M.S. [address] [place] [phone] documented as of this encounter Visit Diagnoses Not on filedocumented in this encounter Additional Health Concerns Infection Onset Date Last Indicated Resolved Time Protective Environment 10/10/2022 10/10/2022 Assessment Noted Time PHQ-9 Depression Total Score: 4 08/12/19 3:31 PM CDT documented as of this encounter Care Teams Automation Tester Relationship Specialty Start Date End Date Ana Red MPAS, P.A.-C. [address] [place] [phone] PCP - General Internal Medicine 12/01/21 [facility] [place] [facility] 08/25/21 documented as of this encounter
--- OUTSIDE RECORDS SUMMARY | 2024-10-04 05:58 | XMS_ITS | Encounter Summary ---
Author Organization [facility] Address [address] [place] [address] Care Team Providers Care Crayon Painter Name Role Phone Ana Red P.A.-C. Primary Care Pro vider Reason for Referral * Outpatient (Routine) - Closed Specialty Diagnoses / Procedures Referred By Meir lara Referred To Contact Pharmacy Edgar Montgomery M.B.B.S., M.S. [address] [place] [phone] Phone: tel: fax: [facility] Referral ID Status Reason Start Date Expiration Date Visits Re quested Visits Authorized [id number] Closed 09/08/2024 03/10/2026 1 1 Encounter Details Date Type Department Care Team (Late st Contact Info) Description 09/08/2024 Orders Only Ramirez Nguyen [facility] in [place], [place] [address] [place] [phone] Criselda Samayoa R.N., CCTN Social History [...] the past 12 months has th e [employer], gas, oil, or water company threatened to [...] How often do you attend chur or restorationist services? Patient declined 02/10/2022 Do you belong [...] Assigned at Female 04/12/2021 7:39 PM TREE DEADENER Legal Sex Female 7:53 PM TREE DEADENER Gender Identity Female 04/12/2021 7:39 PM TREE DEADENER Sexual Orientation Straight 04/12/2021 7: 39 PM TREE DEADENER documented as of this encounter Plan of Treatment Upcoming Encounters Date Type Department Care Team (Latest Contact Info) Description 10/05/2024 9:30 AM CDT Appointment Department of Radiology, [facility] in [place], [place] [address] [place] [phone] Marisabel Carpenter APRN, C.N.P., D.N.P. [address] [place] [phone] 10/05/2024 12:00 PM CDT Appointment Division of Pulmonary Medicine in [address] [phone] Edgar Montgomery M.B.B.S., M.S. [address] [place] [phone] 10/05/2024 2:45 PM CDT Infusion Department of Infusion Therapy in [address] [phone] Noreen Ansari P.A.-C., M.S. [address] [place] [phone] 10/10/2024 7:50 AM CDT Lab Department of Laboratory Medicine and Pathology, [facility] in [place], [place] [address] [place] [phone] Marisabel Carpenter APRN, C.N.P., D.N.P. [address] [place] [phone] 10/10/2024 8:00 AM CDT Lab Department of Laboratory Medicine and Pathology, [facility] in [place], [place] [address] [place] [phone] Marisabel Carpenter APRN, C.N.P., D.N.P. [address] [place] [phone] 10/10/2024 8:30 AM CDT Nurse Only Ramirez diaz [facility] Transplantation and Clinical [facility] in [place], [place] [address] [place] [address] Marisabel Carpenter APRN, C.N.PSuma, D.N.P. [address] [place] [phone] 10/10/2024 9:20 AM CDT Appointment [place], [place] [address] [place] [address] Marisabel Carpenter APRN, C.N.P., D.N.P. [address] [place] [phone] 10/10/2024 9:45 AM CDT Appointment Department of Laboratory Medicine and Pathology, [facility] in [place], [place] [address] [place] [address] Marisabel Carpenter APRN, Katrin.N.PSuma, D.N.P. [address] [place] [phone] 10/10/2024 1:30 PM CDT Appointment Department of Radiology, [facility] in [place], [place] [address] [place] [address] Marisabel Carpenter APRN, C.N.P., D.N.P. [address] [place] [phone] Discharge Disposition: Home or Self Care 10/10/2024 2:45 PM CDT Appointment Department of Radiology, [facility], in [place], [place] [address] [place] [address] Marisabel Carpenter APRN, C.NDayne, D.N.P. [address] [place] [phone] 10/11/2024 8:00 AM CDT [facility] in [place], [place] [address] [place] [phone] Marisabel Carpenter APRN, C.N.P., D.N.P. [address] [place] [phone] 10/11/2024 11:00 AM CDT [facility] in [place], [place] [address] [place] [phone] Sree Devlin M.D. [address] [place] [phone] 10/11/2024 1:00 PM CDT Comprehensive Visit Department of Otorhinolaryngology in [address] [phone] Randal Urbano, P.A.-C., M.S. [address] [place] [phone] 10/11/2024 2:00 PM CDT Office Visit [facility] for Transplantation and Clinical Regeneration in [place], [place] [address] [place] [phone] Hiro Murillo P.A.-C. [address] [place] [phone] 10/11/2024 4:00 PM CDT Comprehensive Visit Department of Dermatology in [place], [place] [address] [place] [phone] Parul Martinez M.D. [address] [place] [phone] 10/12/2024 8:00 AM CDT Telemedicine [facility] for Transplantation and Clinical Regeneration in [place], [place] [address] [place] [phone] Ervin Mckeon D.O. [address] [place] [phone] 11/01/2024 2:15 PM CDT Appointment Division of Pulmonary Medicine in [place], [place] [address] [place] [phone] Edgar Montgomery M.B.BSumaS., M.S. [address] [place] [phone] Scheduled Referrals Name Type Priority Associated Diagnoses [...] documented as of this encounter Care Teams Crayon Painter Relationship Specialty Start Date End Date Ana Red MPAS, P.A.-C. [address] [place] [phone] PCP - General Internal Medicine 12/01/21 [facility] [place] [facility] 08/25/21 documented as of this encounter
--- OUTSIDE RECORDS SUMMARY | 2024-10-04 05:58 | XMS_ITS | Encounter Summary ---
Author Organization [facility] Address [address] [place] [address] Care Team Providers Care Design Studio Consultant Name Role Phone Ana Red P.A.-C. Primary Care Pro vider Encounter Details Date Type Department Care Team (Latest Contact Info) Description 09/13/2024 Clinical Communication Ramirez Navarrete [facility] in [place], [place] [address] [place] [phone] AugustSony R.N. [address] [place] [phone] Social History Tobacco Use Types Packs/Day Years Used Date Smoking Tobacco: Former Cigarettes 1 - 10/12/2021 Passive Smoke Exposure: Never Smokeless Tobacco: Never Comments:Smoked cigarettes f rom age 18-30 about Alcohol Use Standard Drinks/Week Comments Never 0 (1 standard drink = 0.6 oz pure alcohol) Havent had any alcohol in about a year or so. [facility] Utilities Answer Date Recorded In [...] do you attend up health system or caodaism services? Patient declined 02/10/2022 Do [...] your living situation today? I have a [facility] place to live 09/09/2024 Education Answer Date Recorded What is the highest level of school you have completed or the highest degree you have received? Associate degree: occupational, technical, or vocational program 07/16/2021 Comments No Sex and Gender Information Value Date Recorded Sex Assigned at Female 04/12/2021 7:39 PM MANAGER DIALYSIS Legal Sex Female 7:53 PM MANAGER DIALYSIS Gender Identity Female 04/12/2021 7:39 PM MANAGER DIALYSIS Sexual Orientation Straight 04/12/2021 7: 39 PM MANAGER DIALYSIS documented as of this encounter Plan of Treatment Upcoming Encounters Date Type Department Care Team (Latest Contact Info) Description 10/05/2024 9:30 AM CDT Appointment Department of Radiology, [facility], in [place], [place] [address] [place] [address] Marisabel Carpenter APRN, C.N.P., D.N.P. 200 [place] [phone] 10/05/2024 12:00 PM CDT Appointment Division of Pulmonary Medicine in [place], [place] [address] [place] [address] Edgar Montgomery M.B.B.S., M.S. [address] [place] [phone] 10/05/2024 2:45 PM CDT Infusion Department of Infusion Therapy in [place], [place] [address] [place] [address] Noreen Ansari P.A.-C., M.S. [address] [place] [phone] 10/10/2024 7:50 AM CDT Lab Department of Laboratory Medicine and Pathology, [facility] in [place], [place] [address] [place] [address] Marisabel Carpenter APRN, C.N.P., D.N.P. [address] [place] [phone] 10/10/2024 8:00 AM CDT Lab Department of Laboratory Medicine and Pathology, [facility] in [place], [place] [address] [place] [address] Marisabel Carpenter APRN, C.N.P., D.N.P. [address] [place] [phone] 10/10/2024 8:30 AM CDT Nurse Only [facility] in [place], [place] [address] [place] [address] Marisabel Carpenter APRN, C.N.P., D.N.P. [address] [place] [phone] 10/10/2024 9:20 AM CDT Appointment Department of Radiology, [facility] in [place], [place] [address] [place] [address] Marisabel Carpenter APRN, C.N.P., D.N.P. [address] [place] [phone] 10/10/2024 9:45 AM CDT [facility] [place] [place] [address] [place] [address] Marisabel Carpenter APRN, C.N.P., D.N.P. [address] [place] [phone] 10/10/2024 1:30 PM CDT Appointment Department of Radiology, [facility] in [place], [place] [address] [place] [address] Marisabel Carpenter APRN, C.N.P., D.N.P. [address] [place] [phone] Discharge Disposition: Home or Self Care 10/10/2024 2:45 PM CDT Appointment Department of Radiology, [facility], in [place], [place] [address] [place] [address] Marisabel Carpenter APRN, C.N.P., D.N.P. [address] [place] [phone] 10/11/2024 8:00 AM CDT Office Visit Ramirez diaz [facility] in [place], [place] [address] [place] [address] PintMarisabel APRN, C.N.P., D.N.P. [address] [place] [phone] 10/11/2024 11:00 AM CDT Comprehensive Visit [facility] in [place], [place] [address] [place] [phone] Sree Devlin M.D. [address] [place] [phone] 10/11/2024 1:00 PM CDT Comprehensive Visit Department of Otorhinolaryngology in [place], [place] [address] [place] [phone] Randal Urbano P.A.-C., M.S. [address] [place] [phone] 10/11/2024 2:00 PM CDT Office Visit [facility] in [place], [place] [address] [place] [phone] Hiro Murillo P.A.-C. [address] [place] [phone] 10/11/2024 4:00 PM CDT Comprehensive Visit Department of Dermatology in [place], [place] [address] [place] [phone] Parul Martinez M.D. [address] [place] [phone] 10/12/2024 8:00 AM CDT Telemedicine [facility] in [place], [place] [address] [place] [phone] Ervin Mckeon D.O. [address] [place] [phone] 11/01/2024 2:15 PM CDT Appointment Division of Pulmonary Medicine in [place], [place] [address] [place] [address] Edgar Montgomery M.B.B.S., M.S. [address] [place] [address] documented as of this encounter Visit Diagnoses Not on filedocumented in this encounter Additional Health Concerns Infection Onset Date Last Indicated Resolved Time Protective Environment 10/10/2022 10/10/2022 Assessment Noted Time PHQ-9 Depression Total Score: 4 08/12/19 25 3:31 PM CDT documented as of this encounter Care Teams Design Studio Consultant Relationship Specialty Start Date End Date Ana Red MPAS, P.A.-C. [address] [place] [phone] PCP - General Internal Medicine 12/01/21 [facility] [place] [facility] 08/25/21 documented as of this encounter
--- OUTSIDE RECORDS SUMMARY | 2024-10-04 05:58 | XMS_ITS | Encounter Summary ---
Author Organization [facility] Address [address] [place] [address] Care Team Providers Care Sales Outfitter Name Role Phone Ana Red P.A.-C. Primary Care Pro vider Reason for Referral * Outpatient (Routine) - Authorized Specialty Diagnoses / Procedures Referred By Meir lara Referred To Contact Diagnoses Transplant Liver (HCC) Rejection Liver Transplant (HCC) Procedures US Liver Transplant Biopsy US Liver Biopsy VA BX NDL LIVER PERC VA US GUIDE PLC NDL Edgar Montgomery M.B.B.S., M.S. [address] [place] [phone] Phone: tel: fax: [facility] Referral ID Status Reason Start Date Expiration Date V isits Requested Visits Authorized [id number] Authorized 09/07/2024 12/08/2025 1 1 * Transplant (Routine) - Closed Specialty Diagnoses / Procedures Referred By Meir lara Referred To Contact Transplant Diagnoses Transplant Liver (HCC) Rejection Liver Transplant (HCC) Edgar Montgomery M.B.B.S., M.S. [address] [place] [phone] Phone: tel: fax: [facility] Referral ID Status Reason Start Date Expiration Date Visits Re quested Visits Authorized [id number] Closed 09/07/2024 03/09/2026 1 1 Encounter Details Date Type Department Care Team (Late st Contact Info) Description 09/07/2024 Orders Only Ramirez diaz [facility] in [place], [place] [address] [place] [address] Criselda Samayoa R.N., CCTN Transplant Liver (HCC) [...] about a year or so. [facility] Utilities Answer Date Recorded In the past 12 months has e [employer], gas, oil, or water [employer] threatened to shut off services in your [...] often do you attend chur ch or congregation services? Patient declined 02/10/2022 Do [...] [facility] - Occupational Stress Questionnaire Answer Date [...] [facility] 09/09/2024 Education Answer Date Recorded What is the highest level of school you have completed or the highest degree you have received? Associate degree: occupational, technical, or vocational program 07/16/2021 Comments No Sex and Gender Information Value Date Recorded Sex Assigned at Female 04/12/2021 7:39 PM DIRECTOR TECHNICAL Legal Sex Female 7:53 PM DIRECTOR TECHNICAL Gender Identity Female 04/12/2021 7:39 PM DIRECTOR TECHNICAL Sexual Orientation Straight 04/12/2021 7: 39 PM DIRECTOR TECHNICAL documented as of this encounter Miscellaneous Notes [...] 9:30 AM CDT Appointment Department of Radiology, [place], in [place], [place] [address] [place] [address] Marisabel Carpenter APRN, C.N.P., D.N.P. [address] [place] [phone] 10/05/2024 12:00 PM CDT Appointment Division of Pulmonary Medicine in [place], [place] [address] [place] [phone] Edgar Montgomery M.B.B.S., M.S. [address] [place] [phone] 10/05/2024 2:45 PM CDT Infusion Department of Infusion Therapy in [place], [place] [address] [place] [address] Noreen Ansari P.A.-C., M.S. [address] [place] [phone] 10/10/2024 7:50 AM CDT Lab Department of Laboratory Medicine and Pathology, [facility] in [place], [place] [address] [place] [address] Marisabel Carpenter APRN, Katrin.N.P., D.N.P. [address] [place] [phone] 10/10/2024 8:00 AM CDT Lab Department of Laboratory Medicine and Pathology, [facility] in [place], [place] [address] [place] [address] Marisabel Carpenter APRN, C.N.P., D.N.P. [address] [place] [phone] 10/10/2024 8:30 AM CDT Nurse Only [facility] in [place], [place] [address] [place] [address] Marisabel Carpenter APRN, C.N.P., D.N.P. [address] [place] [phone] 10/10/2024 9:20 AM CDT Appointment Department of Radiology, [facility] in [place], [place] [address] [place] [address] Marisabel Carpenter APRN, C.N.P., D.N.P. [address] [place] [phone] 10/10/2024 9:45 AM CDT Appointment [place] [address] [place] [address] Marisabel Carpenter APRN, C.N.P., D.N.P. [address] [place] [phone] 10/10/2024 1:30 PM CDT [facility] [place] [place] [address] [place] [address] Marisabel Carpenter APRN, C.N.P., D.N.P. [address] [place] [phone] Discharge Disposition: Home or Self Care 10/10/2024 2:45 PM CDT Appointment Department of Radiology, [facility] in [place], [place] [address] [place] [address] Marisabel Carpenter APRN, C.N.P., D.N.P. [address] [place] [phone] 10/11/2024 8:00 AM CDT Office Visit [facility] in [place], [place] [address] [place] [phone] Marisabel Carpenter APRN, CSumaNSumaPSuma, D.N.P. [address] [place] [phone] 10/11/2024 11:00 AM CDT Comprehensive Visit [facility] in [place], [place] [address] [place] [address] Sree Devlin M.D. [address] [place] [phone] 10/11/2024 1:00 PM CDT Comprehensive Visit Department of Otorhinolaryngology in [place], [place] [address] [place] [phone] Randal Urbano, P.A.-C., M.S. [address] [place] [phone] 10/11/2024 2:00 PM CDT Office Visit [facility] in [place], [place] [address] [place] [phone] Hiro Murillo P.A.-[place] [address] [place] [phone] 10/11/2024 4:00 PM CDT Comprehensive Visit Department of Dermatology in [place], [place] [address] [place] [phone] Parul Martinez M.D. [address] [place] [phone] 10/12/2024 8:00 AM CDT Telemedicine [facility] in [place], [place] [address] [place] [address] Ervin Mckeon D.O. [address] [place] [phone] 11/01/2024 2:15 PM CDT Appointment Division of Pulmonary Medicine in [place], [place] [address] [place] [phone] Edgar Montgomery M.B.B.S., M.S. [address] [place] [address] Scheduled Orders Name Type Priority Associated Diagnoses Orde r Schedule US Liver Transplant Biopsy Imaging RAD - Routine (most inpatients and all outpatients) Transplant Liver (HCC) Rejection Liver Transplant (HCC) Expected: 09/14/2024, Expires: 12/08/2025 Scheduled Referrals Name Type Priority Associated Diagnoses Order Schedule Transplant - Liver transplant consult (clinic) Outpatient Referral Routine Transplant Liver (HCC) Rejection Liver Transplant (HCC) 1 Occurrences starting 09/07/2024 until 12/08/2025 documented as of this encounter Results * (ABNORMAL) Tacrolimus, Trough (09/15/2024 8:57 AM CDT) Tacrolimus, Trough <1.0(L) 5.0-15.0 (Trough) ng/mL 09/15/2024 1:26 PM CDT [facility] Comment: ----ADDITIONAL INFORMATION---- Target steady-state trough concentrations vary depending on the type of transplant, concomitant immunosuppression, clinical/institutional protocols, and time post-transplant. Results should be interpreted in conjunction with this clinical information and any physical signs/symptoms of rejection/toxicity. Testing performed by Liquid Chromatography-Tandem Mass Spectrometry (LC-MS/MS). This test was developed and its performance characteristics determined by [facility] in a manner consistent with CLIA requirements. This test has not been cleared or approved by the U.S. Food and Drug Administration. Blood (Blood, Venous) 09/15/2024 8:57 AM CDT 09/15/2024 10:12 AM CDT Edgar Santillan, M.S. LAB BLOOD NON A DD-ON Final Result [facility] [address] [place] [address] [facility] [address] [place] [address] [place] [address] * CMV DNA Detect / Quant, Plasma (09/15/2024 8:57 AM CDT) [facility] CMV DNA Detect/Quant, P Undetected Undetected IU/mL 09/16/2024 2:55 PM CDT [facility] Comment: Result in log IU/mL is Undetected. ----ADDITIONAL INFORMATION---- The quantification range of this assay is 35 to 10,000,000 IU/mL (1.54 log to 7.00 log IU/mL). Testing was performed using the john CMV test ([employer] Blood (Blood, Venous) 09/15/2024 8:57 AM CDT 09/15/2024 11:03 AM CDT Edgar Santillan, M.S. LAB MICROBIOLOG Y - BLOOD ORDERABLES Final Result Performing Organization Address City/[facility] Co de Phone Number [facility] [address] [place] [address] [facility] [address] [place] [address] [place] [address] * (ABNORMAL) Prothrombin Time (PT) (09/15/2024 8:57 AM CDT) [facility] Prothrombin Time, P 9.1(L) 9.4 - 12.5 sec 09/15/2024 9:27 AM CDT DTL INR 0.8 0.9 - 1.1 09/15/2024 9:27 AM CDT D[facility] Comment: ----ADDITIONAL INFORMATION---- Standard intensity warfarin therapeutic range: 2.0 to 3.0 High intensity warfarin therapeutic range: 2.5 to 3.5 Blood (Blood, Venous) 09/15/2024 8:57 AM CDT 09/15/2024 9:07 AM CDT Edgar Santana., M.S. LAB BLOOD ADD-O N Final Result [facility] [place] [address] [place] [address], [facility] DTL [facility] [address] [place] [address] * (ABNORMAL) Comprehensive Metabolic Panel (09/15/2024 8:57 AM CDT) Pathologist [facility] Potassium, S 3.6 3.6 - 5.2 mmol/L [...] AM CDT 09/15/2024 9:28 AM CDT Edgar Santana., M.S. LAB BLOOD ADD-O N Final Result [facility] [place] [address] [place] [address], [facility] [address] [place] [address] * (ABNORMAL) CBC with Differential, Blood (09/15/2024 [...] AM CDT 09/15/2024 9:07 AM CDT Edgar CheryB.S., M.S. LAB BLOOD ADD-O N Final Result [facility] [place] [address] [place] [address], [facility] DTL [facility] [address] [place] [address] DHPM [facility] [address] [place] [address] documented in this encounter Visit Diagnoses Diagnosis [...] End Date Ana Red MPAS, P.A.-C. [address] [place] [address] [place] [address] PCP - General Internal Medicine 12/01/21 [facility] [place] [facility] 08/25/21 documented as of this encounter
--- OUTSIDE RECORDS SUMMARY | 2024-10-04 05:58 | XMS_ITS | Encounter Summary ---
Author Organization [facility] Address [address] [place] [address] Care Team Providers Care Senior Counsel Commercial Name Role Phone Ana Red P.A.-C. Primary Care Pro vider Encounter Details Date Type Department Care Team (Late st Contact Info) Description 09/07/2024 Orders Only Division of Endocrinology in [place], [place] [address] [place] [phone] Catia Quintana, YARITZA, C.N.P. [address] [place] [phone] Social History Tobacco Use Types Packs/Day Years Used Date Smoking Tobacco: Former Cigarettes 1 - 10/12/2021 Passive Smoke Exposure: Never Smokeless Tobacco: Never Comments:Smoked cigarettes f rom age 18-30 about Alcohol Use Standard Drinks/Week Comments Never 0 (1 standard drink = 0.6 oz pure alcohol) Havent had any alcohol in about a year or so. [facility] Utilities Answer Date Recorded In the past 12 months has e [employer], gas, oil, or water [employer] threatened to shut off services in your [...] How often do you attend chur or judaism services? Patient declined 02/10/2022 Do you belong to any clubs o r organizations such as baptist groups, unions, fraternal [...] Date Recorded PHQ-2 Score 0 08/11/2024 [facility] [place] of Occupat ional Health - Occupational Stress [...] a [facility] place to live 09/23/2024 Education Answer Date Recorded What is the highest level of school you have completed or the highest degree you have received? Associate degree: occupational, technical, or vocational program 07/16/2021 Comments No Sex and Gender Information Value Date Recorded Sex Assigned at Female 04/12/2021 7:39 PM TAR HEATER OPERATOR Legal Sex Female 7:53 PM TAR HEATER OPERATOR Gender Identity Female 04/12/2021 7:39 PM TAR HEATER OPERATOR Sexual Orientation Straight 04/12/2021 7 :39 PM TAR HEATER OPERATOR documented as of this encounter Plan of Treatment Upcoming Encounters Date Type Department Care Team (Latest Contact Info) Description 10/05/2024 9:30 AM CDT Appointment Department of Radiology, [facility], in [place], [place] 200 [place] [address] Marisabel Carpenter APRN, C.N.P., D.N.P. [address] [place] [phone] 10/05/2024 12:00 PM CDT Appointment Division of Pulmonary Medicine in [place], [place] [address] [place] [address] Edgar Montgomery M.B.B.S., M.S. [address] [place] [phone] 10/05/2024 2:45 PM CDT Infusion Department of Infusion Therapy in [place], [place] [address] [place] [address] Noreen Ansari P.A.-C., M.S. [address] [place] [phone] 10/10/2024 7:50 AM CDT Lab Department of Laboratory Medicine and Pathology, [facility] in [place], [place] [address] [place] [address] Marisabel Carpenter APRN, C.N.P., D.N.P. [address] [place] [phone] 10/10/2024 8:00 AM CDT Lab Department of Laboratory Medicine and Pathology, [facility] in [place], [place] [address] [place] [address] Marisabel Carpenter APRN, C.N.PSuma, D.N.P. [address] [place] [phone] 10/10/2024 8:30 AM CDT Nurse Only [facility] in [place], [place] [address] [place] [address] Marisabel Carpenter APRN, C.N.PSuma, D.N.P. [address] [place] [phone] 10/10/2024 9:20 AM CDT Appointment Department of Radiology, [facility] in [place], [place] [address] [place] [phone] Marisabel Carpenter APRN, Katrin.N.PSuma, D.N.P. [address] [place] [phone] 10/10/2024 9:45 AM CDT Appointment Department of Laboratory Medicine and Pathology, [facility] in [place], [place] [address] [place] [phone] Marisabel Carpenter APRN, C.N.PSuma, D.N.P. [address] [place] [phone] 10/10/2024 1:30 PM CDT Appointment Department of Radiology, [facility] in [place], [place] [address] [place] [phone] Marisabel Carpenter APRN, C.N.PSuma, D.N.P. [address] [place] [phone] Discharge Disposition: Home or Self Care 10/10/2024 2:45 PM CDT Appointment Department of Radiology, [facility], in [place], [place] [address] [place] [phone] Marisabel Carpenter APRN, C.N.P., D.N.P. [address] [place] [phone] 10/11/2024 8:00 AM CDT Office Visit [facility] for Transplantation and Clinical Regeneration in [place], [place] [address] [place] [address] Marisabel Carpenter APRN, C.NDayne, D.N.P. [address] [place] [phone] 10/11/2024 11:00 AM CDT Comprehensive Visit [facility] for Transplantation and Clinical Regeneration in [place], [place] [address] [place] [address] Sree Devlin M.D. [address] [place] [phone] 10/11/2024 1:00 PM CDT Comprehensive Visit Department of Otorhinolaryngology in [place], [place] [address] [place], [place] [phone] Randal Urbano, P.A.-C., M.S. [address] [place] [phone] 10/11/2024 2:00 PM CDT Office Visit [facility] Transplantation [facility] in [place], [place] [address] [place] [phone] Hiro Murillo P.A.-C. [address] [place] [phone] 10/11/2024 4:00 PM CDT Comprehensive Visit Department of Dermatology in [place], [place] [address] [place] [phone] Parul Martinez M.D. [address] [place] [phone] 10/12/2024 8:00 AM CDT Telemedicine [facility] in [place], [place] [address] [place] [address] Ervin Mckeon D.O. [address] [place] [phone] 11/01/2024 2:15 PM CDT Appointment Division of Pulmonary Medicine in [place], [place] [address] [place] [address] Edgar Montgomery M.B.B.S., M.S. [address] [place] [address] documented as of this encounter Visit Diagnoses Not on filedocumented in this encounter Additional Health Concerns Infection Onset Date Last Indicated Resolved Time Protective Environment 10/10/2022 10/10/2022 Assessment Noted Time PHQ-9 Depression Total Score: 4 08/12/19 25 3:31 PM CDT documented as of this encounter Care Teams Senior Counsel Commercial Relationship Specialty Start Date End Date Ana Red MPAS, P.A.-C. [address] [place] [address] [place] [phone] PCP - General Internal Medicine 12/01/21 [facility] [place] [facility] 08/25/21 documented as of this encounter
--- OUTSIDE RECORDS SUMMARY | 2024-10-04 05:58 | XMS_ITS | Encounter Summary ---
Author Organization [facility] Address [address] [place] [address] Care Team Providers Care Visual Effects Editor Name Role Phone Ana Red P.A.-C. Primary Care Pro vider Reason for Visit * Reason Onset Date Comments Medication Problem 09/09/2024 Encounter Details Date Type Department Care Team (Latest Contact Info) Description 09/09/2024 Clinical Communication [facility] [address] [place] [phone] Jaiden May, Pharm.D., R.Ph. [address] [place] [phone] Medication Problem Social History Tobacco Use Types Packs/Day Years Used Date Smoking Tobacco: Former Cigarettes 1 - 10/12/2021 Passive Smoke Exposure: Never Smokeless Tobacco: Never Comments:Smoked cigarettes f rom age 18-30 about Alcohol Use Standard Drinks/Week Comments Never 0 (1 standard drink = 0.6 oz pure alcohol) Havent had any alcohol in about a year or so. [facility] Utilities Answer Date Recorded In [...] Answer Date Recorded PHQ-2 Score 0 08/11/2024 [facility] [place] of Occupat ional Health - Occupational Stress [...] a [facility] place to live 09/09/2024 Education Answer Date Recorded What is the highest level of school you have completed or the highest degree you have received? Associate degree: occupational, technical, or vocational program 07/16/2021 Comments No Sex and Gender Information Value Date Recorded Sex Assigned at Female 04/12/2021 7:39 PM TOUR CONDUCTOR Legal Sex Female 7:53 PM TOUR CONDUCTOR Gender Identity Female 04/12/2021 7:39 PM TOUR CONDUCTOR Sexual Orientation Straight 04/12/2021 7: 39 PM TOUR CONDUCTOR documented as of this encounter Plan of Treatment Upcoming Encounters Date Type Department Care Team (Latest Contact Info) Description 10/05/2024 9:30 AM CDT Appointment Department of Radiology, [facility], in [place], [place] [address] [place] [address] Marisabel Carpenter APRN, C.N.P., D.N.P. [address] [place] [phone] 10/05/2024 12:00 PM CDT Appointment Division of Pulmonary Medicine in [place], [place] [address] [place] [address] Edgar Montgomery M.B.B.S., M.S. [address] [place] [phone] 10/05/2024 2:45 PM CDT Infusion Department of Infusion Therapy in [place], [place] [address] [place] [address] Noreen Ansari P.A.-C., M.S. [address] [place] [phone] 10/10/2024 7:50 AM CDT Lab Department of Laboratory Medicine and Pathology, [facility] in [place], [place] [address] [place] [address] Marisabel Carpenter APRN, C.N.P., D.N.P. [address] [place] [phone] 10/10/2024 8:00 AM CDT Lab Department of Laboratory Medicine and Pathology, [facility] in [place], [place] [address] [place] [address] Marisabel Carpenter APRN, C.N.P., D.N.P. [address] [place] [phone] 10/10/2024 8:30 AM CDT Nurse [facility] in [place], [place] [address] [place] [address] Marisabel Carpenter APRN, C.N.P., D.N.P. [address] [place] [phone] 10/10/2024 9:20 AM CDT Appointment Department of Radiology, [facility] in [place], [place] [address] [place] [address] Marisabel Carpenter APRN, C.N.P., D.N.P. [address] [place] [phone] 10/10/2024 9:45 AM CDT Appointment Department of Laboratory Medicine and Pathology, [facility] in [place], [place] [address] [place] [phone] Marisabel Carpenter APRN, Katrin.N.PSuma, D.N.P. [address] [place] [phone] 10/10/2024 1:30 PM CDT Appointment Department of Radiology, [facility] in [place], [place] [address] [place] [address] Marisabel Carpenter APRN, C.N.P., D.N.P. [address] [place] [phone] Discharge Disposition: Home or Self Care 10/10/2024 2:45 PM CDT Appointment Department of Radiology, [facility] in [place], [place] [address] [place] [address] Marisabel Carpenter APRN, C.N.P., D.N.P. [address] [place] [phone] 10/11/2024 8:00 AM CDT [facility] in [place], [place] [address] [place] [phone] Marisabel Carpenter APRN, C.NDayne, D.N.P. [address] [place] [phone] 10/11/2024 11:00 AM CDT Comprehensive Visit [facility] Clinical Reg[facility] in [place], [place] [address] [place] [phone] Sree Devlin M.D. [address] [place] [phone] 10/11/2024 1:00 PM CDT Comprehensive Visit Department of Otorhinolaryngology in [place], [place] [address] [place] [phone] Randal Urbano P.A.-Katrin., M.S. [address] [place] [phone] 10/11/2024 2:00 PM CDT Office Visit [facility] in [place], [place] [address] [place] [phone] Hiro Murillo P.A.-C. [address] [place] [phone] 10/11/2024 4:00 PM CDT Comprehensive Visit Department of Dermatology in [place], [place] [address] [place] [phone] Parul Martinez M.D. [address] [place] [phone] 10/12/2024 8:00 AM CDT Telemedicine [facility] in [place], [place] [address] [place] [phone] Ervin Mckeon D.O. [address] [place] [address] 11/01/2024 2:15 PM CDT Appointment Division of Pulmonary Medicine in [place], [place] [address] [place] [address] Edgar Montgomery M.B.B.S., M.S. [address] [place] [phone] documented as of this encounter Visit Diagnoses Not on filedocumented in this encounter Additional Health Concerns Infection Onset Date Last Indicated Resolved Time Protective Environment 10/10/2022 10/10/2022 Assessment Noted Time PHQ-9 Depression Total Score: 4 08/12/19 25 3:31 PM CDT documented as of this encounter Care Teams Visual Effects Editor Relationship Specialty Start Date End Date Ana Red MPAS, P.A.-C. [address] [place] [phone] PCP - General Internal Medicine 12/01/21 [facility] [place] [facility] 08/25/21 documented as of this encounter
--- OUTSIDE RECORDS SUMMARY | 2024-10-04 05:58 | XMS_ITS | Encounter Summary ---
Author Organization [facility] Address [address] [place] [address] Care Team Providers Care Front Desk Auxiliary Name Role Phone Ana Red P.A.-C. Primary Care Pro vider Encounter Details Date Type Department Care Team (Latest Contact Info) Description 09/07/2024 Orders Only Division of Gastroenterology in [place], [place] [address] [place] [phone] Edgar Montgomery M.B.B.S., M.S. [address] [place] [phone] Rejection Graft Acute (Primary Dx) Social History Tobacco Use Types Packs/Day Years Used Date Smoking Tobacco: Former Cigarettes 1 - 10/12/2021 Passive Smoke Exposure: Never Smokeless Tobacco: Never Comments:Smoked cigarettes f rom age 18-30 about Alcohol Use Standard Drinks/Week Comments Never 0 (1 standard drink = 0.6 oz pure alcohol) Havent had any alcohol in about a year or so. [facility] Utilities Answer Date Recorded In the past 12 months has e [employer], gas, oil, or water [employer] threatened to shut off services in your [...] Answer Date Recorded PHQ-2 Score 0 08/11/2024 [facility] of Occupat ional Health - [...] your living situation today? I have a [facility] place to live 08/22/2024 Education Answer Date Recorded What is the highest level of school you have completed or the highest degree you have received? Associate degree: occupational, technical, or vocational program 07/16/2021 Comments No Sex and Gender Information Value Date Recorded Sex Assigned at Female 04/12/2021 7:39 PM SLIP FEEDER Legal Sex Female 7:53 PM SLIP FEEDER Gender Identity Female 04/12/2021 7:39 PM SLIP FEEDER Sexual Orientation Straight 04/12/2021 7: 39 PM SLIP FEEDER documented as of this encounter Plan of Treatment Upcoming Encounters Date Type Department Care Team (Latest Contact Info) Description 10/05/2024 9:30 AM CDT Appointment Department of Radiology, [facility], in [place], [place] [address] [place] [address] Marisabel Carpenter APRN, C.N.P., D.N.P. [address] [place] [phone] 10/05/2024 12:00 PM CDT Appointment Division of Pulmonary Medicine in [place], [place] [address] [place] [address] Edgar Montgomery M.B.B.S., M.S. [address] [place] [phone] 10/05/2024 2:45 PM CDT Infusion Department of Infusion Therapy in [place], [place] [address] [place] [address] Noreen Ansari P.A.-C., M.S. [address] [place] [phone] 10/10/2024 7:50 AM CDT Lab Department of Laboratory Medicine and Pathology, [facility] in [place], [place] [address] [place] [address] Marisabel Carpenter APRN, C.N.P., D.N.P. [address] [place] [phone] 10/10/2024 8:00 AM CDT Lab Department of Laboratory Medicine and Pathology, [facility] in [place], [place] [address] [place] [address] Marisabel Carpenter APRN C.N.P., D.N.P. [address] [place] [phone] 10/10/2024 8:30 AM CDT [facility] in [place], [place] [address] [place] [address] Marisabel Carpenter APRN, C.N.P., D.N.P. [address] [place] [phone] 10/10/2024 9:20 AM CDT Appointment Department of Radiology, [facility] in [place], [place] [address] [place] [address] Marisabel Carpenter APRN, C.N.P., D.N.P. [address] [place] [phone] 10/10/2024 9:45 AM CDT Appointment Department of Laboratory Medicine and Pathology, [facility] in [place], [place] [address] [place] [address] Marisabel Carpenter APRN, C.N.PSuma, D.N.P. [address] [place] [phone] 10/10/2024 1:30 PM CDT [facility] [place] [place] [address] [place] [address] Marisabel Carpenter APRN, C.N.P., D.N.P. [address] [place] [phone] Discharge Disposition: Home or Self Care 10/10/2024 2:45 PM CDT Appointment Department of Radiology, [facility] in [place], [place] [address] [place] [address] Marisabel Carpenter APRN, C.N.P., D.N.P. [address] [place] [phone] 10/11/2024 8:00 AM CDT [facility] in [place], [place] [address] [place] [phone] Marisabel Carpenter APRN, C.NDayne, D.N.P. [address] [place] [phone] 10/11/2024 11:00 AM CDT Comprehensive Visit [facility] Transplantation [facility] Clinical Reg[facility] in [place], [place] [address] [place] [phone] Sree Devlin M.D. [address] [place] [phone] 10/11/2024 1:00 PM CDT Comprehensive Visit Department of Otorhinolaryngology in [address] [phone] Randal Urbano P.A.-Katrin., M.S. [address] [place] [phone] 10/11/2024 2:00 PM CDT Office Visit [facility] in [place], [place] [address] [place] [phone] Hiro Murillo P.A.-C. [address] [place] [phone] 10/11/2024 4:00 PM CDT Comprehensive Visit Department of Dermatology in [place], [place] [address] [place] [phone] Parul Martinez M.D. [address] [place] [phone] 10/12/2024 8:00 AM CDT Telemedicine [facility]plantation [facility] Clinical Regeneration in [address] [phone] Ervin Mckeon D.O. [address] [place] [phone] 11/01/2024 2:15 PM CDT Appointment Division of Pulmonary Medicine in [place], [place] [address] [place] [address] Edgar Montgomery M.B.B.S., M.S. [address] [place] [phone] documented as of this encounter Visit Diagnoses Diagnosis Rejection Graft Acute- Primary documented in this encounter Additional Health Concerns Infection Onset Date Last Indicated Resolved Time Protective Environment 10/10/2022 10/10/2022 Assessment Noted Time PHQ-9 Depression Total Score: 4 08/12/19 25 3:31 PM CDT documented as of this encounter Care Teams Front Desk Auxiliary Relationship Specialty Start Date End Date Ana Red MPAS, P.A.-C. [address] [place] [phone] PCP - General Internal Medicine 12/01/21 [facility] [place] [facility] 08/25/21 documented as of this encounter
--- OUTSIDE RECORDS SUMMARY | 2024-10-04 05:59 | XMS_ITS | Encounter Summary ---
Author Organization [facility] Address [address] [place] [address] Care Team Providers Care Automatic Wheel Line Operator Name Role Phone Ana Red P.A.-C. Primary Care Pro vider Reason for Visit * Reason Onset Date Comments Med Refill 09/11/2024 Insurance Issues Encounter Details Date Type Department Care Team (Latest Contact Info) Description 09/11/2024 Clinical Communication Ramirez [facility] for Transplantation and Clinical Regeneration in [place], [place] [address] [place] [phone] August, Sony Mendez R.N. [address] [place] [phone] Med Refill (Insurance Issues) Social History Tobacco Use Types Packs/Day Years Used Date Smoking Tobacco: Former Cigarettes 1 - 10/12/2021 Passive Smoke Exposure: Never Smokeless Tobacco: Never Comments:Smoked cigarettes f rom age 18-30 about Alcohol Use Standard Drinks/Week Comments Never 0 (1 standard drink = 0.6 oz pure alcohol) Havent had any alcohol in about a year or so. [facility] Utilities Answer Date Recorded In the [...] Answer Date Recorded PHQ-2 Score 0 08/11/2024 [facility] of Occupat ional Health - Occupational [...] living situation today? I have a [facility] place to live 09/09/2024 Education Answer Date Recorded What is the highest level of school you have completed or the highest degree you have received? Associate degree: occupational, technical, or vocational program 07/16/2021 Comments No Sex and Gender Information Value Date Recorded Sex Assigned at Female 04/12/2021 7:39 PM SWITCHBOARD OPERATOR SUPERVISOR Legal Sex Female 7:53 PM SWITCHBOARD OPERATOR SUPERVISOR Gender Identity Female 04/12/2021 7:39 PM SWITCHBOARD OPERATOR SUPERVISOR Sexual Orientation Straight 04/12/2021 7: 39 PM SWITCHBOARD OPERATOR SUPERVISOR documented as of this encounter Plan of Treatment Upcoming Encounters Date Type Department Care Team (Latest Contact Info) Description 10/05/2024 9:30 AM CDT Appointment Department of Radiology, [facility], in [place], [place] [address] [place] [address] Marisabel Carpenter APRN, C.N.PSuma, D.N.P. [address] [place] [phone] 10/05/2024 12:00 PM CDT Appointment Division of Pulmonary Medicine in [place], [place] [address] [place] [address] Edgar Montgomery M.B.B.S., M.S. [address] [place] [phone] 10/05/2024 2:45 PM CDT Infusion Department of Infusion Therapy in [place], [place] [address] [place] [address] Noreen Ansari P.A.-C., M.S. [address] [place] [phone] 10/10/2024 7:50 AM CDT Lab Department of Laboratory Medicine and Pathology, [facility] in [place], [place] [address] [place] [address] Marisable Carpenter APRN, Katrin.N.PSuma, D.N.P. [address] [place] [phone] 10/10/2024 8:00 AM CDT Lab Department of Laboratory Medicine and Pathology, [facility] in [place], [place] [address] [place] [address] Marisabel Carpenter APRN, Katrin.N.P., D.N.P. [address] [place] [phone] 10/10/2024 8:30 AM CDT Nurse Only [facility] in [place], [place] [address] [place] [address] Marisabel Carpenter APRN, C.N.P., D.N.P. [address] [place] [phone] 10/10/2024 9:20 AM CDT Appointment Department of Radiology, [facility] in [place], [place] [address] [place] [address] Marisabel Carpenter APRN, C.N.P., D.N.P. [address] [place] [phone] 10/10/2024 9:45 AM CDT Appointment Department of Laboratory Medicine and Pathology, [facility] in [place], [place] [address] [place] [phone] Marisabel Carpenter APRN, Katrin.N.PSuma, D.N.P. [address] [place] [phone] 10/10/2024 1:30 PM CDT Appointment Department of Radiology, [facility] in [place], [place] [address] [place] [address] Marisabel Carpenter APRN, Katrin.N.PSuma, D.N.P. [address] [place] [phone] Discharge Disposition: Home or Self Care 10/10/2024 2:45 PM CDT Appointment Department of Radiology, [facility] in [place], [place] [address] [place] [address] Marisabel Carpenter APRN, C.N.P., D.N.P. [address] [place] [phone] 10/11/2024 8:00 AM CDT Office [facility] in [place], [place] [address] [place] [address] Marisabel Carpenter APRN, LowellNSumaP., D.N.P. [address] [place] [phone] 10/11/2024 11:00 AM CDT Comprehensive [facility] in [place], [place] [address] [place] [address] Sree Devlin M.D. [address] [place] [phone] 10/11/2024 1:00 PM CDT Comprehensive Visit Department of Otorhinolaryngology in [place], [place] [address] [place] [address] Randal Urbano, Shanita.Silvano.-C., M.S. [address] [place] [phone] 10/11/2024 2:00 PM CDT Office Visit [facility] for Transplantation and Clinical Regeneration in [place], [place] [address] [place] [address] Hiro Murillo P.A.-C. [address] [place] [phone] 10/11/2024 4:00 PM CDT Comprehensive Visit Department of Dermatology in [place], [place] [address] [place] [phone] Parul Martinez M.D. [address] [place] [phone] 10/12/2024 8:00 AM CDT Telemedicine [facility] for Transplantation and Clinical Regeneration in [place], [place] [address] [place] [address] Ervin Mckeon D.O. [address] [place] [phone] 11/01/2024 2:15 PM CDT Appointment Division of Pulmonary Medicine in [place], [place] [address] [place] [address] Edgar Montgomery M.B.B.S., M.S. [address] [place] [phone] documented as of this encounter Visit Diagnoses Not on filedocumented in this encounter Additional Health Concerns Infection Onset Date Last Indicated Resolved Time Protective Environment 10/10/2022 10/10/2022 Assessment Noted Time PHQ-9 Depression Total Score: 4 08/12/19 25 3:31 PM CDT documented as of this encounter Care Teams Automatic Wheel Line Operator Relationship Specialty Start Date End Date Ana Red MPAS, P.A.-C. [address] [place] [address] [place] [address] PCP - General Internal Medicine 12/01/21 [facility] [place] 08/25/21 documented as of this encounter
--- OUTSIDE RECORDS SUMMARY | 2024-10-04 05:59 | XMS_ITS | Encounter Summary ---
Author Organization [facility] Address [address] [place] [address] Care Team Providers Care Turnstile Attendant Name Role Phone Ana Red P.A.-C. Primary Care Pro vider Encounter Details Date Type Department Care Team (Late st Contact Info) Description 09/11/2024 Clinical Communication Department of Infusion Therapy in [place], [place] [address] [place] [phone] Aidee Pulido, Emma., LOUISA [address] [place] [phone] Social History Tobacco Use Types Packs/Day Years Used Date Smoking Tobacco: Former Cigarettes 1 - 10/12/2021 Passive Smoke Exposure: Never Smokeless Tobacco: Never Comments:Smoked cigarettes f rom age 18-30 about Alcohol Use Standard Drinks/Week Comments Never 0 (1 standard drink = 0.6 oz pure alcohol) Havent had any alcohol in about a year or so. [facility] Utilities Answer Date Recorded In the past 12 months has e [employer], gas, oil, or water company threatened to [...] week 02/10/2022 How often do you attend [facility] or [facility]? Patient declined 02/10/2022 Do you belong [...] a [facility] to live 09/09/2024 Education Answer Date Recorded What is the highest level of school you have completed or the highest degree you have received? Associate degree: occupational, technical, or vocational program 07/16/2021 Comments No Sex and Gender Information Value Date Recorded Sex Assigned at Female 04/12/2021 7:39 PM FIELD ASSISTANT Legal Sex Female 7:53 PM FIELD ASSISTANT Gender Identity Female 04/12/2021 7:39 PM FIELD ASSISTANT Sexual Orientation Straight 04/12/2021 7: 39 PM FIELD ASSISTANT documented as of this encounter Miscellaneous Notes * Telephone Encounter - Evon Joseph, Pharm.D., R.Ph., [facility] - 09/12/2024 10:53 AM CDT [...] Department of Radiology, [facility] in [address] [phone] Marisabel Carpenter APRN, C.N.P., D.N.P. [address] [place] [phone] 10/05/2024 12:00 PM CDT Appointment Division of Pulmonary Medicine in [address] [phone] Edgar Montgomery M.B.B.S., M.S. [address] [place] [phone] 10/05/2024 2:45 PM CDT Infusion Department of Infusion Therapy in [address] [address] Noreen Ansari P.A.-C., M.S. [address] [place] [phone] 10/10/2024 7:50 AM CDT Lab Department of Laboratory Medicine and Pathology, [address] [phone] Marisabel Carpenter APRN, C.N.P., D.N.P. [address] [place] [phone] 10/10/2024 8:00 AM CDT Lab Department of Laboratory Medicine and Pathology, [facility] in [address] [phone] Marisabel Carpenter APRN, C.N.P., D.N.P. [address] [place] [phone] 10/10/2024 8:30 AM CDT Nurse Only Ramirez diaz [facility] Transplantation and Clinical Regeneration in [place], [place] [address] [place] [address] Marisabel Carpenter APRN, C.N.P., D.N.P. [address] [place] [phone] 10/10/2024 9:20 AM CDT Appointment Department of Radiology, [facility] in [place], [place] [address] [place] [address] Marisabel Carpenter APRN, C.N.P., D.N.P. [address] [place] [phone] 10/10/2024 9:45 AM CDT Appointment Department of Laboratory Medicine and Pathology, [facility] in [place], [place] [address] [place] [address] Marisabel Carpenter APRN, C.N.P., D.N.P. [address] [place] [phone] 10/10/2024 1:30 PM CDT Appointment Department of Radiology, [facility] in [place], [place] [address] [place] [address] Marisabel Carpenter APRN, C.N.P., D.N.P. [address] [place] [phone] Discharge Disposition: Home or Self Care 10/10/2024 2:45 PM CDT Appointment Department of Radiology, [facility], in [place], [place] [address] [place] [address] Marisabel Carpenter APRN, C.NDayne, D.N.P. [address] [place] [phone] 10/11/2024 8:00 AM CDT [facility] in [place], [place] [address] [place] [phone] Marisabel Carpenter APRN, C.NDayne, D.N.P. [address] [place] [phone] 10/11/2024 11:00 AM CDT Comprehensive Visit Ramirez [facility] in [place], [place] [address] [place] [phone] Sree Devlin M.D. [address] [place] [phone] 10/11/2024 1:00 PM CDT Comprehensive Visit Department of Otorhinolaryngology in [place], [place] [address] [place] [phone] Randal Urbano, P.A.-C., M.S. [address] [place] [phone] 10/11/2024 2:00 PM CDT Office Visit [facility] for Transplantation and Clinical Regeneration in [place], [place] [address] [place] [phone] Hiro Murillo P.A.-C. [address] [place] [phone] 10/11/2024 4:00 PM CDT Comprehensive Visit Department of Dermatology in [place], [place] [address] [place] [address] Parul Martinez M.D. [address] [place] [phone] 10/12/2024 8:00 AM CDT Telemedicine [facility] for Transplantation and Clinical Regeneration in [place], [place] [address] [place] [phone] Ervin Mckeon D.O. [address] [place] [phone] 11/01/2024 2:15 PM CDT Appointment Division of Pulmonary Medicine in [place], [place] [address] [place] [phone] Edgar Montgomery M.B.BSumaS., M.S. [address] [place] [phone] documented as of this encounter Visit Diagnoses Diagnosis Rejection Graft Acute- Primary documented in this encounter Additional Health Concerns Infection Onset Date Last Indicated Resolved Time Protective Environment 10/10/2022 10/10/2022 Assessment Noted Time PHQ-9 Depression Total Score: 4 08/12/19 25 3:31 PM CDT documented as of this encounter Care Teams Turnstile Attendant Relationship Specialty Start Date End Date Ana Red MPAS, P.A.-C. [address] [place] [phone] PCP - General Internal Medicine 12/01/21 [facility] 08/25/21 documented as of this encounter
--- OUTSIDE RECORDS SUMMARY | 2024-10-04 05:59 | XMS_ITS | Encounter Summary ---
Author Organization [facility] Address [address] [place] [address] Care Team Providers Care Farm Butcher Name Role Phone Ana Red P.A.-C. Primary Care Pro vider Encounter Details Date Type Department Care Team (Late st Contact Info) Description 09/13/2024 Clinical Communication Department of Infusion Therapy in [place], [place] [address] [place] [phone] Nita Long, LA-, R.N. [address] [place] [phone] Social History Tobacco Use Types Packs/Day Years [...] you attend [facility] or worship services? Patient declined 02/10/2022 Do [...] Answer Date Recorded PHQ-2 Score 0 08/11/2024 [facility] of Occupat ional Health - [...] your living situation today? I have a [facility] place to live 09/09/2024 Education Answer Date Recorded What is the highest level of school you have completed or the highest degree you have received? Associate degree: occupational, technical, or vocational program 07/16/2021 Comments No Sex and Gender Information Value Date Recorded Sex Assigned at Female 04/12/2021 7:39 PM SLEEVE BOTTOM FELLER Legal Sex Female 7:53 PM SLEEVE BOTTOM FELLER Gender Identity Female 04/12/2021 7:39 PM SLEEVE BOTTOM FELLER Sexual Orientation Straight 04/12/2021 7: 39 PM SLEEVE BOTTOM FELLER documented as of this encounter Plan of Treatment Upcoming Encounters Date Type Department Care Team (Latest Contact Info) Description 10/05/2024 9:30 AM CDT Appointment Department of Radiology, [facility], in [place], [place] [address] [place] [address] Marisabel Carpenter APRN, C.N.P., D.N.P. 200 [place] [phone] 10/05/2024 12:00 PM CDT Appointment Division of Pulmonary Medicine in [place], [place] [address] [place] [phone] Edgar Montgomery M.B.B.S., M.S. [address] [place] [phone] 10/05/2024 2:45 PM CDT Infusion Department of Infusion Therapy in [place], [place] [address] [place] [address] Noreen Ansari P.A.-C., M.S. [address] [place] [phone] 10/10/2024 7:50 AM CDT Lab Department of Laboratory Medicine and Pathology, [facility] in [place], [place] [address] [place] [address] Marisabel Carpenter APRN, C.N.P., D.N.P. [address] [place] [phone] 10/10/2024 8:00 AM CDT Lab Department of Laboratory Medicine and Pathology, [facility] in [place], [place] [address] [place] [address] Marisabel Carpenter APRN, C.N.P., D.N.P. [address] [place] [phone] 10/10/2024 8:30 AM CDT Nurse Only [facility] in [place], [place] [address] [place] [address] Marisabel Carpenter APRN, C.N.P., D.N.P. [address] [place] [phone] 10/10/2024 9:20 AM CDT Appointment Department of Radiology, [facility] in [place], [place] [address] [place] [address] Marisabel Carpenter APRN, C.N.P., D.N.P. [address] [place] [phone] 10/10/2024 9:45 AM CDT Appointment [facility] in [place], [place] [address] [place] [address] Marisabel Carpenter APRN, C.N.P., D.N.P. [address] [place] [phone] 10/10/2024 1:30 PM CDT Appointment Department of Radiology, [facility] in [place], [place] [address] [place] [address] Marisabel Carpenter APRN, C.N.P., D.N.P. [address] [place] [phone] Discharge Disposition: Home or Self Care 10/10/2024 2:45 PM CDT Appointment Department of Radiology, [facility] in [place], [place] [address] [place] [address] Marisabel Carpenter APRN, C.N.P., D.N.P. [address] [place] [phone] 10/11/2024 8:00 AM CDT Office Visit Ramirez diaz [facility] for Transplantation and Clinical Regeneration in [place], [place] [address] [place] [address] Marisabel Carpenter APRN, C.N.P., Slick.N.P. [address] [place] [phone] 10/11/2024 11:00 AM CDT Comprehensive Visit [facility] for Transplantation and Clinical Regeneration in [place], [place] [address] [place] [phone] Sree Devlin M.D. [address] [place] [phone] 10/11/2024 1:00 PM CDT Comprehensive Visit Department of Otorhinolaryngology in [place], [place] [address] [place] [phone] Randal Urbano P.A.-C., M.S. [address] [place] [phone] 10/11/2024 2:00 PM CDT Office Visit [facility] for Transplantation and Clinical Regeneration in [place], [place] [address] [place] [phone] Hiro Murillo P.A.-C. [address] [place] [phone] 10/11/2024 4:00 PM CDT Comprehensive Visit Department of Dermatology in [place], [place] [address] [place] [phone] Parul Martinez M.D. [address] [place] [phone] 10/12/2024 8:00 AM CDT Telemedicine [facility] for Transplantation and Clinical Regeneration in [place], [place] [address] [place] [phone] Ervin Mckeon D.O. [address] [place] [phone] 11/01/2024 2:15 PM CDT Appointment Division of Pulmonary Medicine in [place], [place] [address] [place] [phone] Edgar Montgomery M.B.BSumaS., M.S. [address] [place] [address] documented as of this encounter Visit Diagnoses Not on filedocumented in this encounter Additional Health Concerns Infection Onset Date Last Indicated Resolved Time Protective Environment 10/10/2022 10/10/2022 Assessment Noted Time PHQ-9 Depression Total Score: 4 08/12/19 25 3:31 PM CDT documented as of this encounter Care Teams Farm Butcher Relationship Specialty Start Date End Date Ana Red MPAS, P.A.-C. [address] [place] [phone] PCP - General Internal Medicine 12/01/21 [facility] [place] [facility] 08/25/21 documented as of this encounter
--- OUTSIDE RECORDS SUMMARY | 2024-10-04 05:59 | XMS_ITS | Encounter Summary ---
Author Organization [facility] Address [address] [place] [address] Care Team Providers Care Corporate Compliance Officer Name Role Phone Ana Red P.A.-C. Primary Care Pro vider Reason for Visit * Reason Onset Date Comments Post Hospital Follow-up 09/11/2024 DC'd 08/31 @ 1752 Encounter Details Date Type Department Care Team (Latest Contact Info) Description 09/11/2024 Clinical Communication Department of Community Internal Medicine in [place] [address] [facility] [place] [phone] Salima Graham, RSumaN. Post Hospital Follow-up (DC'd [...] alcohol in about a year or so. [facility] Utilities Answer Date Recorded In [...] How often do you attend chur or orthodox services? Patient declined 02/10/2022 Do you [...] Answer Date Recorded PHQ-2 Score 0 08/11/2024 [facility] [place] of Occupat ional Health - Occupational Stress [...] Sex Assigned at Female 04/12/2021 7:39 PM HOSPITALITY DIRECTOR Legal Sex Female 7:53 PM HOSPITALITY DIRECTOR Gender Identity Female 04/12/2021 7:39 PM HOSPITALITY DIRECTOR Sexual Orientation Straight 04/12/2021 7: 39 PM HOSPITALITY DIRECTOR documented as of this encounter Plan of Treatment Upcoming Encounters Date Type Department Care Team (Latest Contact Info) Description 10/05/2024 9:30 AM CDT Appointment Department of Radiology, [facility], in [place], [place] [address] [place] [address] Marisabel Carpenter APRN, C.N.P., D.N.P. [address] [place] [phone] 10/05/2024 12:00 PM CDT Appointment Division of Pulmonary Medicine in [place], [place] [address] [place] [address] Edgar Montgomery M.B.B.S., M.S. [address] [place] [phone] 10/05/2024 2:45 PM CDT Infusion Department of Infusion Therapy in [place], [place] [address] [place] [address] Noreen Ansari P.A.-C., M.S. [address] [place] [phone] 10/10/2024 7:50 AM CDT Lab Department of Laboratory Medicine and Pathology, [facility] in [place], [place] [address] [place] [address] Marisabel Carpenter APRN, C.N.P., D.N.P. [address] [place] [phone] 10/10/2024 8:00 AM CDT Lab Department of Laboratory Medicine and Pathology, [facility] in [place], [place] [address] [place] [address] Marisabel Carpenter APRN, C.N.P., D.N.P. [address] [place] [phone] 10/10/2024 8:30 AM CDT Nurse Only [facility] in [place], [place] [address] [place] [address] Marisabel Carpenter APRN, C.N.P., D.N.P. [address] [place] [phone] 10/10/2024 9:20 AM CDT Appointment Department of Radiology, [facility] in [place], [place] [address] [place] [address] Marisabel Carpenter APRN, C.N.PSuma, D.N.P. [address] [place] [phone] 10/10/2024 9:45 AM CDT Appointment Department of [place] [address] [place] [address] Marisabel Carpenter APRN, Katrin.N.PSuma, D.N.P. [address] [place] [phone] 10/10/2024 1:30 PM CDT Appointment Department of Radiology, [facility] in [place], [place] [address] [place] [address] Marisabel Carpenter APRN, C.N.P., D.N.P. [address] [place] [phone] Discharge Disposition: Home or Self Care 10/10/2024 2:45 PM CDT Appointment Department of Radiology, [facility] in [place], [place] [address] [place] [address] Marisabel Carpenter APRN, C.N.P., D.N.P. [address] [place] [phone] 10/11/2024 8:00 AM CDT [facility] in [place], [place] [address] [place] [address] Marisabel Carpenter APRN, C.N.P., D.N.P. [address] [place] [phone] 10/11/2024 11:00 AM CDT Comprehensive Visit [facility] Transplantation and Clinical Regeneration in [place], [place] [address] [place] [address] Sree Devlin M.D. [address] [place] [phone] 10/11/2024 1:00 PM CDT Comprehensive Visit Department of Otorhinolaryngology in [place], [place] [address] [place] [address] Randal Urbano, P.A.-C., M.S. [address] [place] [phone] 10/11/2024 2:00 PM CDT Office Visit [facility] Transplantation and Clinical Regeneration in [place], [place] [address] [place] [address] Hiro Murillo P.A.-C. [address] [place] [phone] 10/11/2024 4:00 PM CDT Comprehensive Visit Department of Dermatology in [place], [place] [address] [place] [phone] Parul Martinez M.D. [address] [place] [phone] 10/12/2024 8:00 AM CDT Telemedicine [facility] Transplantation and Clinical Regeneration in [place], [place] [address] [place] [address] Ervin Mckeon D.O. [address] [place] [address] 11/01/2024 2:15 PM CDT Appointment Division of Pulmonary Medicine in [place], [place] [address] [place] [address] Edgar Montgomery M.B.B.S., M.S. [address] [place] [phone] documented as of this encounter Visit Diagnoses Not on filedocumented in this encounter Additional Health Concerns Infection Onset Date Last Indicated Resolved Time Protective Environment 10/10/2022 10/10/2022 Assessment Noted Time PHQ-9 Depression Total Score: 4 08/12/19 25 3:31 PM CDT documented as of this encounter Care Teams Corporate Compliance Officer Relationship Specialty Start Date End Date Ana Red MPAS, P.A.-C. [address] [place] [phone] PCP - General Internal Medicine 12/01/21 [facility] [place] [facility] 08/25/21 documented as of this encounter
--- OUTSIDE RECORDS SUMMARY | 2024-10-04 05:59 | XMS_ITS | Encounter Summary ---
Author Organization [facility] Address [address] [place] [address] Care Team Providers Care Heeler Name Role Phone Ana Red P.A.-C. Primary Care Pro vider Encounter Details Date Type Department Care Team (Late st Contact Info) Description 09/13/2024 Orders Only Ramirez diaz [facility] for Transplantation and Clinical Regeneration in [place], [place] [address] [place] [phone] Ben Redmond, YARITZA, C.N.P., D.N.P. [address] [place] [phone] Social History Tobacco Use Types Packs/Day Years Used Date Smoking Tobacco: Former Cigarettes 1 - 10/12/2021 Passive Smoke Exposure: Never Smokeless Tobacco: Never Comments:Smoked cigarettes f rom age 18-30 about Alcohol Use Standard Drinks/Week Comments Never 0 (1 standard drink = 0.6 oz pure alcohol) Havent had any alcohol in about a year or so. [facility] Utilities Answer Date Recorded In the [...] PHQ-2 Score 0 08/11/2024 [facility] [place] of Occupat ional Health - Occupational Stress [...] [facility] 09/23/2024 Education Answer Date Recorded What is the highest level of school you have completed or the highest degree you have received? Associate degree: occupational, technical, or vocational program 07/16/2021 Comments No Sex and Gender Information Value Date Recorded Sex Assigned at Female 04/12/2021 7:39 PM STAINLESS STEEL FINISHER Legal Sex Female 7:53 PM STAINLESS STEEL FINISHER Gender Identity Female 04/12/2021 7:39 PM STAINLESS STEEL FINISHER Sexual Orientation Straight 04/12/2021 7: 39 PM STAINLESS STEEL FINISHER documented as of this encounter Plan of Treatment Upcoming Encounters Date Type Department Care Team (Latest Contact Info) Description 10/05/2024 9:30 AM CDT Appointment Department of Radiology, [facility], in [place], [place] [address] [place] [address] Marisabel Carpenter APRN, C.N.PSuma, D.N.P. [address] [place] [phone] 10/05/2024 12:00 PM CDT Appointment Division of Pulmonary Medicine in [place], [place] [address] [place] [address] Edgar Montgomery M.B.B.S., M.S. [address] [place] [phone] 10/05/2024 2:45 PM CDT Infusion Department of Infusion Therapy in [place], [place] [address] [place] [address] Noreen Ansari P.A.-C., M.S. [address] [place] [phone] 10/10/2024 7:50 AM CDT Lab Department of Laboratory Medicine and Pathology, [facility] in [place], [place] [address] [place] [address] Marisabel Carpenter APRN, Katrin.N.PSuma, D.N.P. [address] [place] [phone] 10/10/2024 8:00 AM CDT Lab Department of Laboratory Medicine and Pathology, [facility] in [place], [place] [address] [place] [address] Marisabel Carpenter APRN, Katrin.N.P., D.N.P. [address] [place] [phone] 10/10/2024 8:30 AM CDT Nurse Only [facility] in [place], [place] [address] [place] [address] Marisabel Carpenter APRN, C.N.P., D.N.P. [address] [place] [phone] 10/10/2024 9:20 AM CDT Appointment Department of Radiology, [facility] in [place], [place] [address] [place] [address] Marisabel Carpenter APRN, C.N.P., D.N.P. [address] [place] [phone] 10/10/2024 9:45 AM CDT Appointment Department of Laboratory Medicine and Pathology, [facility] in [place], [place] [address] [place] [phone] Marisabel Carpenter APRN, Katrin.N.PSuma, D.N.P. [address] [place] [phone] 10/10/2024 1:30 PM CDT Appointment Department of Radiology, [facility] in [place], [place] [address] [place] [address] Marisabel Carpenter APRN, Katrin.N.PSuma, D.N.P. [address] [place] [phone] Discharge Disposition: Home or Self Care 10/10/2024 2:45 PM CDT Appointment Department of Radiology, [facility] in [place], [place] [address] [place] [address] Marisabel Carpenter APRN, C.N.P., D.N.P. [address] [place] [phone] 10/11/2024 8:00 AM CDT Office Visit [facility] Clinical [facility]eneration in [place], [place] [address] [place] [address] Marisabel Carpenter APRN, LowellNSumaP., D.N.P. [address] [place] [phone] 10/11/2024 11:00 AM CDT Comprehensive Visit [facility] in [place], [place] [address] [place] [address] Sree Devlin M.D. [address] [place] [phone] 10/11/2024 1:00 PM CDT Comprehensive Visit Department of Otorhinolaryngology in [place], [place] [address] [place] [address] Randal Urbano, Shanita.Sivlano.-C., M.S. [address] [place] [phone] 10/11/2024 2:00 PM CDT Office Visit [facility] for Transplantation and Clinical Regeneration in [place], [place] [address] [place] [address] Hiro Murillo P.A.-C. [address] [place] [phone] 10/11/2024 4:00 PM CDT Comprehensive Visit Department of Dermatology in [place], [place] [address] [place] [phone] Parul Martinez M.D. [address] [place] [phone] 10/12/2024 8:00 AM CDT Telemedicine [facility] for Transplantation and Clinical Regeneration in [place], [place] [address] [place] [address] Ervin Mckeon D.O. [address] [place] [address] 11/01/2024 2:15 PM CDT Appointment Division of Pulmonary Medicine in [place], [place] [address] [place] [address] Edgar Montgomery M.B.B.S., M.S. [address] [place] [phone] documented as of this encounter Visit Diagnoses Not on filedocumented in this encounter Additional Health Concerns Infection Onset Date Last Indicated Resolved Time Protective Environment 10/10/2022 10/10/2022 Assessment Noted Time PHQ-9 Depression Total Score: 4 08/12/19 25 3:31 PM CDT documented as of this encounter Care Teams Heeler Relationship Specialty Start Date End Date Ana Red MPAS, P.A.-C. [address] [place] [address] [place] [address] PCP - General Internal Medicine 12/01/21 [facility] [place] [facility] 08/25/21 documented as of this encounter
--- OUTSIDE RECORDS SUMMARY | 2024-10-04 05:59 | XMS_ITS | Encounter Summary ---
Author Organization [facility] Address [address] [place] [address] Care Team Providers Care Mesmerist Name Role Phone Ana Red P.A.-C. Primary Care Pro vider Encounter Details Date Type Department Care Team (Latest Contact Info) Description 09/11/2024 Clinical Communication Ramirez Navarrete [facility] for Transplantation and Clinical Regeneration in [place], [place] [address] [place] [phone] Michelle Luz M.D., M.S. [address] [place] [phone] Social History Tobacco Use Types Packs/Day Years [...] In the past 12 months has e [employer], gas, oil, or water [employer] threatened to shut off services in your [...] How often do you attend chur or mosque services? Patient declined 02/10/2022 Do [...] Recorded PHQ-2 Score 0 08/11/2024 [facility] [place] of Occupat ional Health - Occupational Stress [...] your living situation today? I have a [facility] place to live 09/09/2024 Education Answer Date Recorded What is the highest level of school you have completed or the highest degree you have received? Associate degree: occupational, technical, or vocational program 07/16/2021 Comments No Sex and Gender Information Value Date Recorded Sex Assigned at Female 04/12/2021 7:39 PM WELDING SUPERVISOR Legal Sex Female 7:53 PM WELDING SUPERVISOR Gender Identity Female 04/12/2021 7:39 PM WELDING SUPERVISOR Sexual Orientation Straight 04/12/2021 7: 39 PM WELDING SUPERVISOR documented as of this encounter Miscellaneous Notes * Telephone Encounter - Michelle Luz M.D., M.S. - 09/11/2024 3:28 PM CDT I was contacted by the [facility] RN regarding Ms. Brunson. In brief, Ms. [...] of the arm were taken (uploaded in [employer]) and borders will be outlined. She denies [...] 9:30 AM CDT Appointment Department of Radiology, [facility], in [place], [place] [address] [place] [phone] Marisabel Carpenter APRN, C.N.P., D.N.P. [address] [place] [phone] 10/05/2024 12:00 PM CDT Appointment Division of Pulmonary Medicine in [place], [place] [address] [place] [phone] Edgar Montgomery M.B.B.S., M.S. [address] [place] [phone] 10/05/2024 2:45 PM CDT Infusion Department of Infusion Therapy in [place], [place] [address] [place] [address] Noreen Ansari P.A.-C., M.S. [address] [place] [phone] 10/10/2024 7:50 AM CDT Lab Department of Laboratory Medicine and Pathology, [place], [place] [address] [place] [address] Marisabel Carpenter APRN, C.N.P., D.N.P. [address] [place] [phone] 10/10/2024 8:00 AM CDT Lab Department of Laboratory Medicine and Pathology, [facility] in [place], [place] [address] [place] [address] Marisabel Carpenter APRN, C.N.P., D.N.P. [address] [place] [phone] 10/10/2024 8:30 AM CDT Nurse Only Ramirez diaz [facility] for Transplantation and Clinical Regeneration in [place], [place] [address] [place] [address] Marisabel Carpenter APRN, C.N.P., D.N.P. [address] [place] [phone] 10/10/2024 9:20 AM CDT Appointment Department of Radiology, [place], [place] [address] [place] [address] Marisabel Carpenter APRN, C.N.P., D.N.P. [address] [place] [phone] 10/10/2024 9:45 AM CDT Appointment Department of Laboratory Medicine and Pathology, [facility] in [place], [place] [address] [place] [address] Marisabel Carpenter APRN, C.N.P., D.N.P. [address] [place] [phone] 10/10/2024 1:30 PM CDT Appointment Department of Radiology, [facility] in [place], [place] [address] [place] [address] Marisabel Carpenter APRN, C.N.P., D.N.P. [address] [place] [phone] Discharge Disposition: Home or Self Care 10/10/2024 2:45 PM CDT Appointment Department of Radiology, [facility] in [place], [place] [address] [place] [address] Marisabel Carpenter APRN, C.N.P., D.N.P. [address] [place] [phone] 10/11/2024 8:00 AM CDT Office Visit Ramirez Llanes emily [facility] for Transplantation and Clinical Regeneration in [place], [place] [address] [place] [address] Marisabel Carpenter APRN, C.N.P., D.N.P. [address] [place] [phone] 10/11/2024 11:00 AM CDT Comprehensive [facility] in [place], [place] [address] [place] [address] Sree Devlin M.D. [address] [place] [phone] 10/11/2024 1:00 PM CDT Comprehensive Visit Department of Otorhinolaryngology in [place], [place] [address] [place] [address] Randal Urbano P.A.-C., M.S. [address] [place] [address] 10/11/2024 2:00 PM CDT Office Visit [facility] for Transplantation and Clinical Regeneration in [place], [place] [address] [place] [address] Hiro Murillo P.A.-C. [address] [place] [phone] 10/11/2024 4:00 PM CDT Comprehensive Visit Department of Dermatology in [place], [place] [address] [place] [address] Parul Martinez M.D. [address] [place] [phone] 10/12/2024 8:00 AM CDT Telemedicine [facility] Transplantation and Clinical Regeneration in [place], [place] [address] [place] [address] Ervin Mckeon D.O. [address] [place] [phone] 11/01/2024 2:15 PM CDT Appointment Division of Pulmonary Medicine in [place], [place] [address] [place] [phone] Edgar Montgomery M.B.B.S., M.S. [address] [place] [phone] documented as of this encounter Results * Bacteria / Ines Culture, Blood #2 (09/11/2024 4:48 PM CDT) Bacteria/Adriana da Culture, Blood No growth after 5 days of incubation. 09/16/2024 6:02 PM CDT DTL Blood (Blood, Peripheral Draw) 09/11/2024 4:48 PM CDT 09/11/2024 5:08 PM CDT Comment:Specimen Source Site : Blood Narrative [facility] - 09/16/2024 6:02 PM CDT Received Bactec aerobic and Bactec anaerobic bottles Michelle Luz M.D., M.S. LAB MICROBIOLOGY - GENERAL ORDERABLES Final Result [facility] [address] [place] [address], [facility] [address] [place] [address] * (ABNORMAL) Hepatic Function Panel (09/11/2024 4:47 [...] M.S. LAB BLOOD ADD-ON Final Res ult [facility] [address] [place] [address], [facility] DTL [facility] [address] [place] [address] * (ABNORMAL) Basic Metabolic Panel (09/11/2024 4:47 [...] BLOOD ADD-ON Final Res ult [facility] [address] [place] [address], [facility] DTL [facility] [address] [place] [address] * (ABNORMAL) CBC with Differential, Blood (09/11/2024 [...] ADD-ON Final Res ult Performing Organization Address City/[facility]/ZIP Co de Phone Number [facility] [address] [place] [address], [facility] [address] [place] [address] [facility] [address] [place] [address] * Bacteria / Ines Culture, Blood #1 (09/11/2024 4:45 PM CDT) Bacteria/Adriana da Culture, Blood No growth after 5 days of incubation. 09/16/2024 6:02 PM CDT DTL Blood (Blood, Peripheral Draw) 09/11/2024 4:45 PM CDT 09/11/2024 5:08 PM CDT Comment:Specimen Source Site : Blood Michelle Luz M.D., M.S. LAB MICROBIOLOGY - GENERAL ORDERABLES Final Result Performing Organization Address [facility] Co de Phone Number [facility] [address] [place] [address], [facility] [address] [place] [address] documented in this encounter Visit Diagnoses Diagnosis Rejection Graft Acute- Primary Swelling Arm Rejection Liver Transplant (HCC) Abdominal Pain Swelling Arm- Primary Rejection Liver Transplant (HCC) documented in this encounter Additional Health Concerns Infection Onset Date Last Indicated Resolved Time Protective Environment 10/10/2022 10/10/2022 Assessment Noted Time PHQ-9 Depression Total Score: 4 08/12/19 25 3:31 PM CDT documented as of this encounter Care Teams Mesmerist Relationship Specialty Start Date End Date Ana Red MPAS, P.A.-C. [address] [place] [phone] PCP - General Internal Medicine 12/01/21 [facility] [place] [facility] 08/25/21 documented as of this encounter
--- OUTSIDE RECORDS SUMMARY | 2024-10-04 05:59 | XMS_ITS ---
Author Organization [facility] Address [address] [place] [address] Care Team Providers Care Senior Data Scientist Name Role Phone Ana Red P.A.-C. Primary Care Pro vider Transplant Episode Liver Recipient [facility] ([place], [place]) - [facility] Organ Received: Liver Transplanted on 10/10/2022 Marked as Active Follow-up on 10/10/2022 Liver CoordinatorSony Carty R.N. Fax: N/A Email: [email or web address] Organ Diagnosis Organ Primary Contributory Liver Alcoholic Cirrhosis Rejection History Noted Survival Rejection Treatment Biopsy Resolved 09/06/2024 1 year 10 months Rejection Liver Transplant (HCC) Infection History Noted Survival Infection Treatment Organism [...] MARK HBV MARK: Negative HCV MARK HCV MAKR: Negative Care Team Name Role Phone Fax Email Sony Carty R.N. Liver Coordinator [phone] N/A [email or web address] Nataliia Vann M.D. Transplant Surgeon [phone] [email or web address] Tyrell Zheng M.D. Referring Provider Transplant Sound Engineering Technician [phone] [email or web address] Post-Transplant Pre-Transplant Admitted: 10/10/2022 Referred: 08/14/2021 Transplanted: 10/10/2022 Evaluation began: 2 Discharged: 10/15/2022 Committee: 07/01/2022 Center waitlisted: 3 Appointments (09/03/2024 - 11/03/2024) When With Visit Type Description 09/05/2024 LAB Blood Test Transplant Live r (HCC); Rejection Liver Transplant (HCC); Medication Therapy Leasing Machine Tender Not Anticoagulant; Elevated Liver Function Test 09/06/2024 LAB Lab Visit Rejection Liver Transplant (HCC) 09/06/2024 Elizabeth Bahena Office Visit Transplant Li fred (HCC); Medication Therapy Residential Not Anticoagulant; Elevated Liver Function Test 09/13/2024 LAB Blood Test Transplant Live r (HCC); Rejection Liver Transplant (HCC) 09/15/2024 Silvano Odell Pharmacist Appointment Tra nsplant Liver (HCC) [Z94.4] (Primary Dx); Rejection Graft Acute [T86.91] 09/15/2024 LAB Blood Test Canceled (Patie nt: Request) 09/15/2024 TXP - Loretta Strickland Consultation Rejection Live r Transplant (HCC) (Primary Dx); Transplant Liver (HCC) 09/20/2024 TXP Office Visit Canceled (Clini c: Request) 09/22/2024 LAB Port Draw Blood Test Cancele d (Clinic: Request) 09/22/2024 TXP - Loretta Strickland Office Visit Canceled (Maryjane ent: Hospitalized / ill) 09/22/2024 LAB Port Draw Blood Test Cancele d (Patient: Request) 09/22/2024 TXP Office Visit Canceled (Patie nt: Request) 10/10/2024 TXP Nurse Visit 10/10/2024 LAB Blood Test 10/10/2024 LAB Urine Container Visit 10/11/2024 TXP Consultation 10/11/2024 ENT - Vanessa Urbano Consultation 10/11/2024 TXP - Jt Murillo Appointment 10/11/2024 TXP Appointment 10/12/2024 TXP Appointment
--- OUTSIDE RECORDS SUMMARY | 2024-10-04 05:59 | XMS_ITS | Encounter Summary ---
Author Organization [facility] Address [address] [place] [address] Care Team Providers Care Night Court Magistrate Name Role Phone Ana Red P.A.-C. Primary Care Pro vider Encounter Details Date Type Department Care Team (Late st Contact Info) Description 09/12/2024 Orders Only Ramirez diaz [facility] for Transplantation and Clinical Regeneration in [place], [place] [address] [place] [phone] AugustSony R.N. [address] [place] [phone] Transplant Liver (HCC) (Primary Dx); Medication Therapy Alf Not Anticoagulant; Rejection Liver Transplant (HCC) Social History Tobacco Use Types Packs/Day Years Used Date Smoking Tobacco: Former Cigarettes 1 - 10/12/2021 Passive Smoke Exposure: Never Smokeless Tobacco: Never Comments:Smoked cigarettes f rom age 18-30 about Alcohol Use Standard Drinks/Week Comments Never 0 (1 standard drink = 0.6 oz pure alcohol) Havent had any alcohol in about a year or so. [facility] Utilities Answer Date Recorded In the [...] How often do you attend chur or tenriism services? Patient declined 02/10/2022 Do you belong [...] Answer Date Recorded PHQ-2 Score 0 08/11/2024 [facility] [place] of Occupat ional Health - Occupational Stress [...] Sex Assigned at Female 04/12/2021 7:39 PM FLOAT REMOVER Legal Sex Female 7:53 PM FLOAT REMOVER Gender Identity Female 04/12/2021 7:39 PM FLOAT REMOVER Sexual Orientation Straight 04/12/2021 7: 39 PM FLOAT REMOVER documented as of this encounter Plan of Treatment Upcoming Encounters Date Type Department Care Team (Latest Contact Info) Description 10/05/2024 9:30 AM CDT Appointment Department of Radiology, [facility], in [place], [place] [address] [place] [address] Marisabel Carpenter APRN C.N.P., D.N.P. [address] [place] [phone] 10/05/2024 12:00 PM CDT Appointment Division of Pulmonary Medicine in [place], [place] [address] [place] [address] Edgar Montgomery M.B.B.S., M.S. [address] [place] [phone] 10/05/2024 2:45 PM CDT Infusion Department of Infusion Therapy in [place], [place] [address] [place] [phone] Noreen Ansari P.A.-C., M.S. [address] [place] [phone] 10/10/2024 7:50 AM CDT Lab Department of Laboratory Medicine and Pathology, [facility] in [place], [place] [address] [place] [address] Marisabel Carpenter APRN, C.N.P., D.N.P. [address] [place] [phone] 10/10/2024 8:00 AM CDT Lab Department of Laboratory Medicine and Pathology, [facility] in [place], [place] [address] [place] [address] Marisabel Carpenter APRN C.N.P., D.N.P. [address] [place] [phone] 10/10/2024 8:30 AM CDT [facility] in [place], [place] [address] [place] [address] Marisabel Carpenter APRN, C.N.PSuma, D.N.P. [address] [place] [phone] 10/10/2024 9:20 AM CDT Appointment Department of Radiology, [facility] in [place], [place] [address] [place] [address] Marisabel Carpenter APRN, C.N.P., D.N.P. [address] [place] [phone] 10/10/2024 9:45 AM CDT Appointment Department of Laboratory Medicine and Pathology, [facility] in [place], [place] [address] [place] [phone] Marisabel Carpenter APRN, Katrin.N.PSuma, D.N.P. [address] [place] [phone] 10/10/2024 1:30 PM CDT Appointment Department of Radiology, [facility] in [place], [place] [address] [place] [address] Marisabel Carpenter APRN, C.N.PSuma, D.N.P. [address] [place] [phone] Discharge Disposition: Home or Self Care 10/10/2024 2:45 PM CDT Appointment Department of Radiology, [facility] in [place], [place] [address] [place] [address] Marisabel Carpenter APRN, C.N.P., D.N.P. [address] [place] [phone] 10/11/2024 8:00 AM CDT [facility] in [place], [place] [address] [place] [phone] Marisabel Carpenter APRN, C.NSumaP., D.N.P. [address] [place] [phone] 10/11/2024 11:00 AM CDT Comprehensive Visit [facility] [place], [facility] for Transplantation and Clinical Regeneration in [place], [place] [address] [place] [phone] Sree Devlin M.D. [address] [place] [phone] 10/11/2024 1:00 PM CDT Comprehensive Visit Department of Otorhinolaryngology in [place], [place] [address] [place] [phone] Randal Urbano P.A.-Katrin., M.S. [address] [place] [phone] 10/11/2024 2:00 PM CDT Office Visit [facility] [place], [facility] for Transplantation and Clinical Regeneration in [place], [place] [address] [place] [phone] Hiro Murillo P.A.-C. [address] [place] [phone] 10/11/2024 4:00 PM CDT Comprehensive Visit Department of Dermatology in [place], [place] [address] [place] [phone] Parul Martinez M.D. [address] [place] [phone] 10/12/2024 8:00 AM CDT Telemedicine [facility] [place], [facility] for Transplantation and Clinical Regeneration in [place], [place] [address] [place] [phone] Ervin Mckeon D.O. [address] [place] [phone] 11/01/2024 2:15 PM CDT Appointment Division of Pulmonary Medicine in [place], [place] [address] [place] [phone] Edgar Montgomery M.B.B.S., M.S. [address] [place] [phone] documented as of this encounter Results * (ABNORMAL) Quantitative Lymphocyte Subsets: T, B, and Natural Killer (NK) (09/13/2024 12:18 PM CDT) CD45 Total Lymph Count 0.49(L) 0.82 - 2.84 thou/mcL 09/13/2024 9:56 PM CDT SDSC % CD3 (T Cells) 82 58 - 86 % 9:56 PM CDT SDSC CD3 (T Cells) 402(L) 550 - 2202 cells/[facility] 09/13/2024 9:56 PM CDT SDSC % CD4 (T Cells) 26(L) 32 - 64 % 9:56 PM CDT SDSC CD4 (T Cells) 130(L) 365 - 1437 cells/[facility] 09/13/2024 9:56 PM CDT SDSC % CD8 (T Cells) 53(H) 15 - 40 % 9:56 PM CDT SDSC CD8 T Cells 260 171 - 846 cells/[facility] 09/13/2024 9:56 PM CDT SDSC % CD19 (B Cells) 17 7 - 24 % 09/14/19 25 9:56 PM CDT SDSC CD19 (B Cells) 83 81 - 409 cells/[facility] 09/13/2024 9:56 PM CDT SDSC % CD16+CD56 (NK cells) 1(L) 4 - 28 % 09/13/2024 9:56 PM CDT SDSC CD16+CD56 (NK cells) 3(L) 59 - 513 cells/[facility] 09/13/2024 9:56 PM CDT SDSC 4/8 Ratio 0.5(L) >=0.9 09/13/2024 9:56 PM CDT [facility] Comment: ----ADDITIONAL INFORMATION---- This test was developed using an analyte specific reagent. Its performance characteristics were determined by [facility] in a manner consistent with CLIA requirements. This test has not been cleared or approved by the U.S. Food and Drug Administration. Blood (Blood, Venous) 09/13/2024 12:18 PM CDT 09/13/2024 2:49 PM CDT us Juan Pete M.D. LAB BLOOD ADD-ON Final Result ED [facility] [place] [address] [place] [address] [facility] [address] [place] [address] [place] [address] * (ABNORMAL) CBC no call back, reflex T/S HGB <8 (09/13/2024 12:18 PM CDT) [facility] Hemoglobin 13.1 11.6 - 15.0 g/dL 09/13/2024 [...] 12:18 PM CDT 09/13/2024 12:26 PM CDT Juan Pete M.D. LAB BLOOD NON ADD-ON Final Res ult Performing Organization Address City/[facility]/ZIP Co de Phone Number [address] [place] [address] * (ABNORMAL) Bilirubin, Direct (09/13/2024 12:18 PM CDT) Bilirubin, Direct, S 0.5(H) 0.0 - 0.3 mg/dL 09/13/2024 1:15 PM CDT DTL Blood (Blood, Venous) 09/13/2024 12:18 PM CDT 09/13/2024 12:46 PM CDT us Juan Pete M.D. LAB BLOOD ADD-ON Final Result Performing Organization Address City/[facility]/[place] [address], [place] [address] documented in this encounter Visit Diagnoses Diagnosis Transplant Liver (HCC)- Primary Medication Therapy Local Government Legislator Not Anticoagulant Rejection Liver Transplant (HCC) documented in this encounter Additional Health Concerns Infection Onset Date Last Indicated Resolved Time Protective Environment 10/10/2022 10/10/2022 Assessment Noted Time PHQ-9 Depression Total Score: 4 08/12/19 25 3:31 PM CDT documented as of this encounter Care Teams Night Court Magistrate Relationship Specialty Start Date End Date Ana Red MPAS, P.A.-C. [address] [facility] [place] [address] PCP - General Internal Medicine 12/01/21 [facility] [place] [facility] 08/25/21 documented as of this encounter
--- OUTSIDE RECORDS SUMMARY | 2024-10-04 05:59 | XMS_ITS | Encounter Summary ---
Author Organization [facility] Address [address] [place] [address] Care Team Providers Care Bilingual Interpreter Name Role Phone Ana Red P.A.-C. Primary Care Pro vider Encounter Details Date Type Department Care Team (Late st Contact Info) Description 09/13/2024 Orders Only Ramirez diaz [facility] Transplantation and Clinical Regeneration in [place], [place] [address] [place] [phone] Noreen Ansari P.Silvano.-C., M.S. [address] [place] [phone] Aftercare Transplant Liver (HCC) (Primary Dx) Social [...] Answer Date Recorded PHQ-2 Score 0 08/11/2024 [facility] [place] of Occupat ional Health - Occupational Stress [...] your living situation today? I have a [facility] place to live 09/23/2024 Education Answer Date Recorded What is the highest level of school you have completed or the highest degree you have received? Associate degree: occupational, technical, or vocational program 07/16/2021 Comments No Sex and Gender Information Value Date Recorded Sex Assigned at Female 04/12/2021 7:39 PM THROW OUT CLERK Legal Sex Female 7:53 PM THROW OUT CLERK Gender Identity Female 04/12/2021 7:39 PM THROW OUT CLERK Sexual Orientation Straight 04/12/2021 7: 39 PM THROW OUT CLERK documented as of this encounter Plan of Treatment Upcoming Encounters Date Type Department Care Team (Latest Contact Info) Description 10/05/2024 9:30 AM CDT Appointment Department of Radiology, [facility], in [place], [place] [address] [place] [address] Marisabel Carpenter APRN, C.N.P., D.N.P. [address] [place] [phone] 10/05/2024 12:00 PM CDT Appointment Division of Pulmonary Medicine in [place], [place] [address] [place] [address] Edgar Montgomery M.B.B.S., M.S. [address] [place] [phone] 10/05/2024 2:45 PM CDT Infusion Department of Infusion Therapy in [place], [place] [address] [place] [address] Noreen Ansari P.A.-C., M.S. [address] [place] [phone] 10/10/2024 7:50 AM CDT Lab Department of Laboratory Medicine and Pathology, [facility] in [place], [place] [address] [place] [address] Marisabel Carpenter APRN, C.N.P., D.N.P. [address] [place] [phone] 10/10/2024 8:00 AM CDT Lab Department of Laboratory Medicine and Pathology, [facility] in [place], [place] [address] [place] [address] Marisabel Carpenter APRN, C.N.P., D.N.P. [address] [place] [phone] 10/10/2024 8:30 AM CDT Nurse Only [facility] in [place], [place] [address] [place] [address] Marisabel Carpenter APRN, C.N.P., D.N.P. [address] [place] [phone] 10/10/2024 9:20 AM CDT Appointment Department of Radiology, [facility] in [place], [place] [address] [place] [address] Marisabel Carpenter APRN, C.N.PSuma, D.N.P. [address] [place] [phone] 10/10/2024 9:45 AM CDT [place]ment [facility] [place] [address] [place] [address] Marisabel Carpenter APRN, Katrin.N.PSuma, D.N.P. [address] [place] [phone] 10/10/2024 1:30 PM CDT Appointment Department of Radiology, [facility] in [place], [place] [address] [place] [address] Marisabel Carpenter APRN, C.N.P., D.N.P. [address] [place] [phone] Discharge Disposition: Home or Self Care 10/10/2024 2:45 PM CDT Appointment Department of Radiology, [facility] in [place], [place] [address] [place] [address] Marisabel Carpenter APRN, C.N.P., D.N.P. [address] [place] [phone] 10/11/2024 8:00 AM CDT [facility] in [place], [place] [address] [place] [address] Marisabel Carpenter APRN, C.N.P., D.N.P. [address] [place] [phone] 10/11/2024 11:00 AM CDT Comprehensive Visit [facility] Transplantation and Clinical Regeneration in [place], [place] [address] [place] [address] Sree Devlin M.D. [address] [place] [phone] 10/11/2024 1:00 PM CDT Comprehensive Visit Department of Otorhinolaryngology in [place], [place] [address] [place] [address] Randal Urbano, P.A.-C., M.S. [address] [place] [phone] 10/11/2024 2:00 PM CDT Office Visit [facility] Transplantation and Clinical Regeneration in [place], [place] [address] [place] [address] Hiro Murillo P.A.-C. [address] [place] [phone] 10/11/2024 4:00 PM CDT Comprehensive Visit Department of Dermatology in [place], [place] [address] [place] [phone] Parul Martinez M.D. [address] [place] [phone] 10/12/2024 8:00 AM CDT Telemedicine [facility] Transplantation and Clinical Regeneration in [place], [place] [address] [place] [address] Ervin Mckeon D.O. [address] [place] [address] 11/01/2024 2:15 PM CDT Appointment Division of Pulmonary Medicine in [place], [place] [address] [place] [address] Edgar Montgomery M.B.B.S., M.S. [address] [place] [phone] documented as of this encounter Visit Diagnoses Diagnosis Aftercare Transplant Liver (HCC)- Primary documented in this encounter Additional Health Concerns Infection Onset Date Last Indicated Resolved Time Protective Environment 10/10/2022 10/10/2022 Assessment Noted Time PHQ-9 Depression Total Score: 4 08/12/19 25 3:31 PM CDT documented as of this encounter Care Teams Bilingual Interpreter Relationship Specialty Start Date End Date Ana Red MPAS, P.A.-C. [address] [place] [phone] PCP - General Internal Medicine 12/01/21 [facility] [place] [facility] 08/25/21 documented as of this encounter
--- OUTSIDE RECORDS SUMMARY | 2024-10-04 05:59 | XMS_ITS | Encounter Summary ---
Author Organization [facility] Address [address] [place] [id number] Care Team Providers Care Community Health Education Coordinator Name Role Phone Ana Red P.A.-C. Primary Care Pro vider Encounter Details Date Type Department Care Team (Late st Contact Info) Description 09/11/2024 Documentation [facility] in [place], [place] [address] [place] [phone] Elsie Salcedo P.A.-C., M.S. [address] [place] [phone] Social History Tobacco Use Types Packs/Day Years Used Date Smoking Tobacco: Former Cigarettes 1 - 10/12/2021 Passive Smoke Exposure: Never Smokeless Tobacco: Never Comments:Smoked cigarettes f rom age 18-30 about Alcohol Use Standard Drinks/Week Comments Never 0 (1 standard drink = 0.6 oz pure alcohol) Havent had any alcohol in about a year or so. [facility] Utilities Answer Date Recorded [...] Score 0 08/11/2024 [facility] of Occupat ional Health - Occupational Stress [...] [facility] 09/09/2024 Education Answer Date Recorded What is the highest level of school you have completed or the highest degree you have received? Associate degree: occupational, technical, or vocational program 07/16/2021 Comments No Sex and Gender Information Value Date Recorded Sex Assigned at Female 04/12/2021 7:39 PM NATIONAL SALES MANAGER Legal Sex Female 7:53 PM NATIONAL SALES MANAGER Gender Identity Female 04/12/2021 7:39 PM NATIONAL SALES MANAGER Sexual Orientation Straight 04/12/2021 7: 39 PM NATIONAL SALES MANAGER documented as of this encounter Progress [...] touch base with her outpatient post liver occupational health coordinator, so that LTC team can coordinate the next doses and clinic appointments. documented in this encounter Plan of Treatment Upcoming Encounters Date Type Department Care Team (Latest Contact Info) Description 10/05/2024 9:30 AM CDT Appointment Department of Radiology, [facility] in [address] [phone] Marisabel Carpenter APRN, C.N.P., D.N.P. [address] [place] [phone] 10/05/2024 12:00 PM CDT Appointment Division of Pulmonary Medicine in [address] [phone] Edgar [place] M.B.B.S., M.S. [address] [place] [phone] 10/05/2024 2:45 PM CDT Infusion Department of Infusion Therapy in [address] [phone] Noreen Ansari P.A.-C., M.S. [address] [place] [phone] 10/10/2024 7:50 AM CDT Lab Department of Laboratory Medicine and Pathology, [facility] in [address] [place] [address] Marisabel Carpenter APRN, C.N.P., D.N.P. [address] [place] [address] 10/10/2024 8:00 AM CDT Lab Department of Laboratory Medicine and Pathology, [facility] in [place], [place] [address] [place] [address] Marisabel Carpenter APRN, C.N.P., D.N.P. [address] [place] [phone] 10/10/2024 8:30 AM CDT Nurse Only [facility] in [place], [place] [address] [place] [address] Marisabel Carpenter APRN, C.N.P., D.N.P. [address] [place] [phone] 10/10/2024 9:20 AM CDT Appointment Department of Radiology, [facility] in [place], [place] [address] [place] [address] Marisabel Carpenter APRN, C.N.P., D.N.P. [address] [place] [phone] 10/10/2024 9:45 AM CDT Appointment Department of Laboratory Medicine and Pathology, [facility] in [place], [place] [address] [place] [address] Marisabel Carpenter APRN, C.N.P., D.N.P. [address] [place] [phone] 10/10/2024 1:30 PM CDT Appointment Department of Radiology, [facility], in [place], [place] [address] [place] [address] Marisabel Carpenter APRN, C.N.PSuma, D.N.P. [address] [place] [phone] Discharge Disposition: Home or Self Care 10/10/2024 2:45 PM CDT Appointment Department of Radiology, [facility], in [place], [place] [address] [place] [address] Marisabel Carpenter APRN, C.N.PSuma, D.N.P. [address] [place] [phone] 10/11/2024 8:00 AM CDT Office Visit [facility] in [place], [place] [address] [place] [address] Marisabel Carpenter APRN, C.N.P., D.N.P. [address] [place] [phone] 10/11/2024 11:00 AM CDT Comprehensive Visit [facility] in [place], [place] [address] [place] [phone] Sree Devlin M.D. [address] [place] [phone] 10/11/2024 1:00 PM CDT Comprehensive Visit Department of Otorhinolaryngology in [place], [place] [address] [place] [phone] Randal Urbano P.A.-Katrin., M.S. [address] [place] [phone] 10/11/2024 2:00 PM CDT Office Visit [facility] in [place], [place] [address] [place] [phone] Hiro Murillo P.A.-C. [address] [place] [phone] 10/11/2024 4:00 PM CDT Comprehensive Visit Department of Dermatology in [place], [place] [address] [place] [phone] Parul Martinez M.D. [address] [place] [phone] 10/12/2024 8:00 AM CDT Telemedicine [facility] in [place], [place] [address] [place] [phone] Ervin Mckeon D.O. [address] [place] [phone] 11/01/2024 2:15 PM CDT Appointment Division of Pulmonary Medicine in [place], [place] [address] [place] [phone] Edgar [place] M.B.BSumaS., M.S. [address] [place] [phone] documented as of this encounter Visit Diagnoses Not on filedocumented in this encounter Additional Health Concerns Infection Onset Date Last Indicated Resolved Time Protective Environment 10/10/2022 10/10/2022 Assessment Noted Time PHQ-9 Depression Total Score: 4 08/12/19 25 3:31 PM CDT documented as of this encounter Care Teams Community Health Education Coordinator Relationship Specialty Start Date End Date Ana Red MPAS PToo. [address] [place] [phone] PCP - General Internal Medicine 12/01/21 [facility] 08/25/21 documented as of this encounter
--- OUTSIDE RECORDS SUMMARY | 2024-10-04 05:59 | XMS_ITS | Encounter Summary ---
Author Organization [facility] Address [address] [place] [address] Care Team Providers Care Mobile Application Development Lead Name Role Phone Ana Red P.A.-C. Primary Care Pro vider Encounter Details Date Type Department Care Team (Latest Contact Info) Description 09/13/2024 Clinical Communication Ramirez [facility] for Transplantation and Clinical Regeneration in [place], [place] [address] [place] [address] Debi Cerda R.N., C.C.T.C. Social History Tobacco [...] In the past 12 months has e [employer], gas, oil, or water company threatened to [...] week 02/10/2022 How often do you attend [facility] or restorationism services? Patient declined 02/10/2022 Do [...] Answer Date Recorded PHQ-2 Score 0 08/11/2024 [facility] of Occupat ional Health - [...] your living situation today? I have a [facility] place to live 09/09/2024 Education Answer Date Recorded What is the highest level of school you have completed or the highest degree you have received? Associate degree: occupational, technical, or vocational program 07/16/2021 Comments No Sex and Gender Information Value Date Recorded Sex Assigned at Female 04/12/2021 7:39 PM AUTOMATION CONTROL TECHNICIAN Legal Sex Female 7:53 PM AUTOMATION CONTROL TECHNICIAN Gender Identity Female 04/12/2021 7:39 PM AUTOMATION CONTROL TECHNICIAN Sexual Orientation Straight 04/12/2021 7: 39 PM AUTOMATION CONTROL TECHNICIAN documented as of this encounter Miscellaneous Notes * Telephone Encounter - Debi Cerda R.N., C.C.T.C. - 09/13/2024 2:28 PM CDT I received a call from [facility] stating that Mrs Brunson's Glucose was critical at 415. documented in this encounter Plan of Treatment Upcoming Encounters Date Type Department Care Team (Latest Contact Info) Description 10/05/2024 9:30 AM CDT Appointment Department of Radiology, [facility] in [place], [place] [address] [place] [address] Marisabel Carpenter APRN, C.N.P., D.N.P. [address] [place] [phone] 10/05/2024 12:00 PM CDT Appointment Division of Pulmonary Medicine in [place], [place] [address] [place] [phone] Edgar [place] M.B.B.S., M.S. [address] [place] [phone] 10/05/2024 2:45 PM CDT Infusion Department of Infusion Therapy in [place], [place] [address] [place] [address] Noreen Ansari P.A.-Katrin., M.S. [address] [place] [phone] 10/10/2024 7:50 AM CDT Lab Department of Laboratory Medicine and Pathology, [facility] in [place], [place] [address] [place] [phone] Marisabel Carpenter APRN, C.N.P., D.N.P. [address] [place] [phone] 10/10/2024 8:00 AM CDT Lab Department of Laboratory Medicine and Pathology, [facility] in [place], [place] [address] [place] [address] Marisabel Carpenter APRN, C.N.P., D.N.P. [address] [place] [address] 10/10/2024 8:30 AM CDT Nurse Only Ramirez diaz [facility] for [facility] and Clinical Regeneration in [place], [place] [address] [place] [address] Marisabel Carpenter APRN, C.N.PSuma, D.N.P. [address] [place] [phone] 10/10/2024 9:20 AM CDT Appointment Department of Radiology, [place], [place] [address] [place] [phone] Marisabel Carpenter APRN, C.N.PSuma, D.N.P. [address] [place] [phone] 10/10/2024 9:45 AM CDT Appointment Department of Laboratory Medicine and Pathology, [place], [place] [address] [place] [address] Marisabel Carpenter APRN, C.N.PSuma, D.N.P. [address] [place] [phone] 10/10/2024 1:30 PM CDT Appointment Department of Radiology, [place], [place] [address] [place] [address] Marisabel Carpenter APRN, C.N.P., D.N.P. [address] [place] [phone] Discharge Disposition: Home or Self Care 10/10/2024 2:45 PM CDT Appointment Department of Radiology, [facility] in [place], [place] [address] [place] [address] Marisabel Carpenter APRN C.N.PSuma, D.N.P. [address] [place] [phone] 10/11/2024 8:00 AM CDT Office Visit [facility] for Transplantation and Clinical Regeneration in [place], [place] [address] [place] [address] Marisabel Carpenter APRN C.N.P., D.N.P. [address] [place] [phone] 10/11/2024 11:00 AM CDT Comprehensive Visit [facility] and Clinical Regeneration in [place], [place] [address] [place] [phone] Sree Devlin M.D. [address] [place] [phone] 10/11/2024 1:00 PM CDT Comprehensive Visit Department of Otorhinolaryngology in [place], [place] [address] [place] [phone] Randal Urbano, P.A.-C., M.S. [address] [place] [phone] 10/11/2024 2:00 PM CDT Office Visit [facility] Clinical Regeneration in [place], [place] [address] [place] [phone] Hiro Murillo P.A.-CSuma [address] [place] [phone] 10/11/2024 4:00 PM CDT Comprehensive Visit Department of Dermatology in [place], [place] [address] [place] [phone] Parul Martinez M.D. [address] [place] [phone] 10/12/2024 8:00 AM CDT Telemedicine Ramirez diaz [facility] and Clinical Regeneration in [place], [place] [address] [place] [phone] Ervin Mckeon D.O. [address] [place] [phone] 11/01/2024 2:15 PM CDT Appointment Division of Pulmonary Medicine in [place], [place] [address] [place] [phone] Edgar [place] M.B.BSumaS., M.S. [address] [place] [phone] documented as of this encounter Visit Diagnoses Not on filedocumented in this encounter Additional Health Concerns Infection Onset Date Last Indicated Resolved Time Protective Environment 10/10/2022 10/10/2022 Assessment Noted Time PHQ-9 Depression Total Score: 4 08/12/19 25 3:31 PM CDT documented as of this encounter Care Teams Mobile Application Development Lead Relationship Specialty Start Date End Date Ana Red MPAS, P.A.-C. [address] [place] [phone] PCP - General Internal Medicine 12/01/21 [facility] 08/25/21 documented as of this encounter
[2024-10-04] MEDS: HYDROmorphone 2 MG TABLET PO ×2 (06:01→07:31)
[2024-10-04] MEDS: ONDANSETRON 2 MG/ML inj 4 MG IVP (06:02)
[2024-10-04 06:18] LABS: Basophils Percent Auto 0.3 % (0.0-3.0); Hematocrit 31.9 % (33.0-51.0); Hemoglobin* 10.9 gm/dL (12.0-16.0); Immature Granulocytes Pct Auto 0.6 %; Lymphocytes Percent Auto 28.1 % (20-44); Mean Corpuscular HGB Conc 34 gm/dL (32-36); Mean Corpuscular Hemoglobin 30 pg (26-34); Mean Corpuscular Volume 88 fL (80-100); Monocytes Percent Auto 8.9 % (0.0-11.0); Neutrophils Percent Auto 61.1 % (42.0-72.0); Platelet Count* 178 K/uL (140-440); RDW Coefficient of Variation % 14.5 % (11.5-15.5); Red Blood Count 3.62 m/uL (4.00-5.20); White Blood Count* 3.13 K/uL (4.50-11.00)
[2024-10-04 06:19] LABS: Slide Review Reflex No
[2024-10-04 06:32] LABS: Albumin* 3.2 g/dL (3.3-5.0); Chloride* 103 mmol/L (96-114); Sodium* 136 mmol/L (135-149)
[2024-10-04 06:33] LABS: Potassium* 3.8 mmol/L (3.6-5.1)
[2024-10-04 06:35] LABS: Alanine Aminotransferase* 116 U/L (4-35); Alkaline Phosphatase* 364 U/L (40-150); Anion Gap 5 mEq/L (7-15); Aspartate Amino Transferase* 112 U/L (12-35); Bilirubin Direct* 0.3 mg/dL (0.0-0.5); Bilirubin Total* 0.9 mg/dL (0.1-1.5); Blood Urea Nitrogen* 7 mg/dL (5-24); Calcium* 8.7 mg/dL (8.4-10.6); Carbon Dioxide* 28 mmol/L (20-32); Creatinine* 0.5 mg/dL (0.5-1.5); Est. Creatinine Clearance* 130.55; Estimated Glomerular Filt Rate 126 ml/min; Lipase* 13 U/L (23-300); Total Protein* 5.7 g/dL (6.0-8.3)
[2024-10-04 06:39] LABS: Glucose* 380 mg/dL (60-115)
[2024-10-04] MEDS: METOCLOPRAMIDE HCL 10 MG in 0.9 % SODIUM CHLORIDE 100 ml 100 ML 306 MG IVPB (06:49)
[2024-10-04] MEDS: INSULIN REGULAR, HUMAN 100 UNIT/ML VIAL 8 UNIT SUBCUT (07:06)
[2024-10-04 07:34] LABS: Glucose, Point-of-Care* 289 mg/dl (60-115)
[2024-10-04 07:36] VITALS: BP 115/83; PULSE 71; RESP 20; O2SAT 99
== END 2024-10-04 08:00 | disposition home or self-care (01) ==
PROVIDERS: Emergency Provider Emergency Medicine; PCP Family Medicine
DX: R10.9 Unspecified abdominal pain (principal)
CPT/HCPCS: 36415; 80048; 80076; 82947; 83690; 85025; 96365; 96375; 99284; A9270; J2405; J2765